=== PATIENT | male | born 1970 | race Caucasian/White ===

== ENCOUNTER 2023-06-14 08:10 | Outpatient (OUT) | payer MEDICAID, SELFPAY ==
--- NOTE | 2023-06-14 09:47 | P.CN_ITS ---
Consult Note: HPI Data of Consult Patient: known to practice within the last 3 years Consult date: 06/14/23 Requesting Physician: Diallo Beauchamp MD Primary Care Provider: Caden Mendez MD Consult Narrative Reason for consult: low back pain Narrative: 52yom who presents for assessment. notes increasing axial low back pain, worsened with standing and ambulation. engaged in >6 weeks of provider directed home exercises, with minimal benefit. underwent lumbar RFA in early 2020, which provided significant relief of >50% until recently. denies trauma. utilizes gabapentin. denies adverse med side effects. cc:: CC: Diallo Beauchamp MD Review of Systems ROS Status of ROS 10 or more systems reviewed and unremarkable except as noted in history and below Meds Home Medications and Allergies Home Medications Medication Instructions Recorded Confirmed Type carvedilol 25 mg tablet 25 mg PO BID 06/14/23 06/14/23 History citalopram 20 mg tablet 20 mg PO DAILY 06/14/23 06/14/23 History clonazepam 0.5 mg tablet 0.5 mg PO DAILY 06/14/23 06/14/23 History doxazosin 8 mg tablet 8 mg PO DAILY 06/14/23 06/14/23 History doxepin 10 mg capsule 10 mg PO DAILY PRN itching 06/14/23 06/14/23 History furosemide 20 mg tablet 20 mg PO DAILY 06/14/23 06/14/23 History gabapentin 600 mg tablet 600 mg PO BID 06/14/23 06/14/23 History glycopyrrolate 1 mg tablet 1 mg PO BID 06/14/23 06/14/23 History hydroxyzine pamoate 25 mg capsule 25 mg PO QPM 06/14/23 06/14/23 History meclizine 25 mg tablet 25 mg PO DAILY 06/14/23 06/14/23 History pantoprazole 40 mg tablet,delayed 40 mg PO DAILY 06/14/23 06/14/23 History release sildenafil 25 mg tablet 25 mg PO DAILY 06/14/23 06/14/23 History simvastatin 20 mg tablet 20 mg PO DAILY 06/14/23 06/14/23 History sumatriptan succinate 100 mg tablet 100 mg PO Q2H PRN migraine headache 06/14/23 06/14/23 History testosterone cypionate 100 mg/mL 100 mg subcut .EVERY 2 WEEKS 06/14/23 06/14/23 History intramuscular oil tizanidine 4 mg capsule 4 mg PO .EVERY NIGHT 06/14/23 06/14/23 History Allergies Allergy/AdvReac Type Severity Reaction Status Date / Time No Known Drug Allergies Allergy Verified 06/14/23 09:03 Exam Narrative Exam Narrative: Psych-alert and oriented x 3. Attentive and appropriate, constitutionally normal, displays normal mood and affect per situation.? There are no obvious deficits in memory, reasoning, or intellect.? Skin-no obvious rashes, bruising, erythema noted to the patient's area of pain. Extremities- extremities are warm with minimal edema and palpable pulses. Lumbar-no significant tenderness to palpation noted in the lumbar spine and paraspinal musculature.? Pain is elicited with extension, and lateral rotation of the lumbar spine. Range of motion is slightly diminished with these motions due to pain. Facet loading maneuvers are positive bilaterally and do appear to be concordant with the patient's normal complaints of pain.? Coordination remains intact.? Gait remains non-antalgic. Assessment and Plan Assessment and Plan (1) Lumbar spondylosis: Plan 52yom who presents for assessment. failed conservative measures, as noted. imaging significant for facet arthropathy in lower lumbar spine. given previous significant relief with lumbar RFA and current symptoms, will proceed with diagnostic bilateral l4-5, l5-s1 medial branch blocks under fluoroscopic guidance with intention of proceeding to radiofrequency ablation. he is in ag reement. medications reviewed, no changes. will have him update lumbar XR as well. follow up after procedure.
== END 2023-06-14 08:11 | disposition home or self-care (01) ==
LOC: PM 08:12
PROVIDERS: PCP Family Medicine; Visit Provider Anesthesiology
DX: M47.816 Spondylosis without myelopathy or radiculopathy, lumbar region (principal); I10 Essential (primary) hypertension; G47.10 Hypersomnia, unspecified; E78.5 Hyperlipidemia, unspecified; R73.09 Other abnormal glucose; Z12.5 Encounter for screening for malignant neoplasm of prostate; Z12.12 Encounter for screening for malignant neoplasm of rectum; M54.16 Radiculopathy, lumbar region
CPT/HCPCS: 36415; 72114; 80053; 80061; 83036; 84436; 84443; 84481; 85025; G0103; G0463

== ENCOUNTER 2023-06-14 09:06 | Outpatient (OUT) | payer MEDICAID, SELFPAY ==
[2023-06-14 09:53] LABS: Basophils Absolute Auto 0.1 10^3/uL (0.0-0.1); Eosinophils Absolute Auto 0.5 10^3/uL (0.0-0.7); Eosinophils Percent Auto 5.9 % (0.9-7.0); Hematocrit 49.1 % (42.0-54.0); Hemoglobin 15.4 g/dL (14.0-18.0); Immature Granulocytes Abs Auto 0.08 10^3/uL (0.00-0.03); Lymphocytes Percent Auto 13.5 % (20.5-60.0); Mean Corpuscular HGB Conc 31.4 g/dL (29.9-35.2); Mean Corpuscular Hemoglobin 27.5 pg (25.9-34.0); Mean Corpuscular Volume 87.7 fL (80.0-94.0); Mean Platelet Volume 10.4 fL (9.5-13.5); Monocytes Absolute Auto 0.6 10^3/uL (0.3-0.8); Monocytes Percent Auto 7.9 % (1.7-12.0); Neutrophils Absolute Auto 5.4 10^3/uL (1.4-6.5); Neutrophils Percent Auto 70.7 % (43.0-75.0); Platelet Count 147 10^3/uL (150-450); Red Cell Distribution Width 15.6 % (11.0-15.0); White Blood Count 7.7 10^3/uL (4.0-11.0)
[2023-06-14 10:57] LABS: Anion Gap 10.7; Aspartate Amino Transferase 19 U/L (15-37); Bilirubin Total 0.6 mg/dL (0.2-1.0); Carbon Dioxide 30.1 mmol/L (21.0-32.0); Chloride 102 mmol/L (98-107); Estimated GFR (African America >60 (>=60); Estimated GFR (Non-African Ame >60 (>=60); Glucose 100 mg/dL (74-106); Potassium 3.8 mmol/L (3.5-5.1); Sodium 139 mmol/L (136-145)
[2023-06-14 10:58] LABS: Alanine Aminotransferase 31 U/L (16-63); Albumin Globulin Ratio 0.9; Albumin Level 3.6 g/dL (3.4-5.0); Alkaline Phosphatase 89 U/L (46-116); Chol HDL Ratio 4.5; Cholesterol 152 mg/dL (<=200); Free T3 2.84 pg/mL (2.18-3.98); Globulin 3.8 g/dL; HDL Cholesterol 34 mg/dL (40-60); Prostate Specific Antigen Scrn 2.95 ng/mL (<=4.00); Thyroid Stimulating Hormone 1.466 uIU/mL (0.358-3.740); Total Protein 7.4 g/dL (6.4-8.2); Triglycerides 107 mg/dL (<=150); VLDL CHOLESTEROL 21.4 mg/dL
[2023-06-14 11:36] LABS: Estimated Average Glucose 128 mg/dL; Glycohemoglobin A1C 6.1 % (4.5-6.2)
== END 2023-06-14 09:07 | disposition home or self-care (01) ==
PROVIDERS: PCP Family Medicine; Visit Provider Family Medicine
DX: I10 Essential (primary) hypertension (principal); M54.16 Radiculopathy, lumbar region; G47.10 Hypersomnia, unspecified; E78.5 Hyperlipidemia, unspecified; R73.09 Other abnormal glucose; Z12.5 Encounter for screening for malignant neoplasm of prostate; Z12.12 Encounter for screening for malignant neoplasm of rectum
CPT/HCPCS: 36415; 80053; 80061; 83036; 84436; 84443; 84481; 85025; G0103

== ENCOUNTER 2023-06-14 09:09 | Outpatient (OUT) | payer MEDICAID, SELFPAY ==
--- NOTE | 2023-06-14 09:28 | XR_ITS ---
The [address] [address] Patient Name: MATTY WADE MRN: [id number] date: 1970 Sex: M Assigned Patient Location: [facility] Current Patient Location: [facility] Accession/Order Number: [id number] Exam Date: 06/14/2023 09:40 Report Date: 06/14/2023 13:54 At the request of: TAMIA PINEDA Procedure: XR lumbar spine 6V w bending EXAMINATION: XR lumbar spine 6V w bending HISTORY: Lumbar Spondylosis COMPARISON: No relevant comparison available. FINDINGS: BONES: Normal alignment on the neutral projection with no acute fracture or spondylolisthesis. Mild anterior wedging of the L1 vertebral body likely chronic with endplate sclerosis. Degenerative spondylosis and facet osteoarthropathy DISC SPACES: Normal. No significant disc height narrowing, subluxation, or endplate abnormality. PARASPINOUS: Negative. No paraspinous abnormality is seen. OTHER: No transient spondylolisthesis with flexion or extension XR/XR lumbar spine 6V w bending IMPRESSION: Degenerative changes with no dynamic instability Electronically authenticated by: ALVINA CAICEDO Date: 06/14/2023 13:54
== END 2023-06-14 09:10 | disposition home or self-care (01) ==
PROVIDERS: PCP Family Medicine; Visit Provider Anesthesiology
DX: M47.816 Spondylosis without myelopathy or radiculopathy, lumbar region (principal)
CPT/HCPCS: 36415; 72114; 80053; 80061; 83036; 84436; 84443; 84481; 85025; G0103

== ENCOUNTER 2023-07-12 07:25 | Day surgery (SDC) | payer MEDICAID, SELFPAY ==
[2023-07-12 07:41] VITALS: BP 159/97; PULSE 76; RESP 14; TEMP 36.7; O2SAT 94
[2023-07-12] MEDS: LIDOCAINE HCL 2% PF 100 MG/5 ML VIAL INJ (08:24)
[2023-07-12] MEDS: BUPIVACAINE HCL 0.5% PF 50 MG/10 ML VIAL 8 ML INJ (08:24)
[2023-07-12] MEDS: TRIAMCINOLONE ACETONIDE 40 MG/ML VIAL INJ (08:24)
--- NOTE | 2023-07-12 08:26 | W.PM.PROCNOT ---
Date of procedure: 07/12/23 Pre-op diagnosis: Lumbar spondylosis Post-op diagnosis: same as pre-op Procedure: Procedure: Bilateral L4-5, L5-S1 medial branch block Medications: Bupivacaine 0.25% 4cc, kenalog 40mg The patient was seen and examined in the preoperative holding area.? An informed consent was obtained and placed on the chart.? The patient was brought to the medical procedure unit and placed in the prone position.? A timeout was completed verifying correct patient, procedure site, positioning, plan, and special equipment.? Using aseptic technique, the needle was placed at left L4. Under direct fluoroscopic visualization a Quincke-tipped spinal needle was advanced to the junction of the superior articulating process with the transverse process at the designated medial branch segment.? Preceded by negative aspiration, the above-mentioned injectate was placed in 1 mL aliquots.? The procedure was repeated at left L5, S1.? The needle was removed and insertion site was covered. The same procedure, at the same levels, was completed on the right side. The patient was taken to the postprocedural recovery area and monitored for an appropriate length of time before found suitable for discharge in the company of a responsible adult. Anesthesia: Local Surgeon: Diallo Beauchamp Pathology: none sent Condition: stable Disposition: no change
[2023-07-12 09:55] VITALS: BP 142/63; BP 182/71; PULSE 18; PULSE 69; RESP 18; RESP 75; O2SAT 95; O2SAT 97
== END 2023-07-12 08:33 | disposition home or self-care (01) ==
PROVIDERS: PCP Family Medicine; Visit Provider Anesthesiology
DX: M47.816 Spondylosis without myelopathy or radiculopathy, lumbar region (principal)
CPT/HCPCS: 64493; 64494

== ENCOUNTER 2023-07-22 10:45 | Outpatient (OUT) | payer MEDICAID, SELFPAY ==
--- NOTE | 2023-07-22 11:04 | P.CN_ITS ---
Consult Note: HPI Data of Consult Patient: known to practice within the last 3 years Consult date: 06/14/23 Requesting Physician: Nicole Acevedo NP Primary Care Provider: Caden Mendez MD Consult Narrative Reason for consult: low back pain Narrative: 52yom who presents for assessment. notes increasing axial low back pain, worsened with standing and ambulation. engaged in >6 weeks of provider directed home exercises, with minimal benefit. underwent lumbar RFA in early 2020, which provided significant relief of >50% until recently. denies trauma. utilizes gabapentin. denies adverse med side effects. Pain today /10 in low back and neck. Patient concerned as he has fallen with his narcelepsy and hit his head, he feels there is a lose screw in his neck. cc:: CC: Nicole Acevedo NP Review of Systems ROS Status of ROS 10 or more systems reviewed and unremarkable except as noted in history and below Musculoskeletal Reports: back pain and neck pain PFSH [facility] Medical History (Updated 07/22/23 @ 11:06 by Nicole Acevedo NP) Anxiety ?F41.9 - Anxiety disorder, unspecified (ICD-10) Hypertension ?I10 - Essential (primary) hypertension (ICD-10) Low back pain ?M54.50 - Low back pain, unspecified (ICD-10) Narcolepsy ?G47.419 - 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) Obesity ?E66.9 - Obesity, unspecified (ICD-10) Sleep apnea ?G47.30 - Sleep apnea, unspecified (ICD-10) TMJ (dislocation of temporomandibular joint) ?S03.00XA - Dislocation of jaw, unspecified side, initial encounter (ICD-10) Upper back pain ?M54.9 - Dorsalgia, unspecified (ICD-10) Surgical History H/O inguinal hernia repair ?Z98.890 - Other specified postprocedural states (ICD-10) ?Z87.19 - Personal history of other diseases of the digestive system (ICD-10) H/O repair of rotator cuff ?Z98.890 - Other specified postprocedural states (ICD-10) History of fusion of cervical spine ?Z98.1 - Arthrodesis status (ICD-10) History of uvulopalatopharyngoplasty ?Z98.890 - Other specified postprocedural states (ICD-10) Meds Home Medications and Allergies Home Medications Medication Instructions Recorded Confirmed Type carvedilol 25 mg tablet 25 mg PO BID 06/14/23 07/12/23 History citalopram 20 mg tablet 20 mg PO DAILY 06/14/23 07/12/23 History clonazepam 0.5 mg tablet 0.5 mg PO DAILY 06/14/23 07/12/23 History doxazosin 8 mg tablet 8 mg PO DAILY 06/14/23 07/12/23 History doxepin 10 mg capsule 10 mg PO DAILY PRN itching 06/14/23 07/12/23 History furosemide 20 mg tablet 20 mg PO DAILY 06/14/23 07/12/23 History gabapentin 600 mg tablet 600 mg PO BID 06/14/23 07/12/23 History glycopyrrolate 1 mg tablet 1 mg PO BID 06/14/23 07/12/23 History hydroxyzine pamoate 25 mg capsule 25 mg PO QPM 06/14/23 07/12/23 History meclizine 25 mg tablet 25 mg PO DAILY 06/14/23 07/12/23 History pantoprazole 40 mg tablet,delayed 40 mg PO DAILY 06/14/23 07/12/23 History release sildenafil 25 mg tablet 25 mg PO DAILY 06/14/23 07/12/23 History simvastatin 20 mg tablet 20 mg PO DAILY 06/14/23 07/12/23 History sumatriptan succinate 100 mg tablet 100 mg PO Q2H PRN migraine headache 06/14/23 07/12/23 History testosterone cypionate 100 mg/mL 100 mg subcut .EVERY 2 WEEKS 06/14/23 07/12/23 History intramuscular oil tizanidine 4 mg capsule 4 mg PO .EVERY NIGHT 06/14/23 07/12/23 History Allergies Allergy/AdvReac Type Severity Reaction Status Date / Time No Known Drug Allergies Allergy Verified 07/12/23 07:37 Exam Narrative Exam Narrative: Psych-alert and oriented x 3. Attentive and appropriate, constitutionally normal, displays normal mood and affect per situation.? There are no obvious deficits in memory, reasoning, or intellect.? Skin-no obvious rashes, bruising, erythema noted to the patient's area of pain. Extremities- extremities are warm with minimal edema and palpable pulses. Lumbar-no significant tenderness to palpation noted in the lumbar spine and paraspinal musculature.? Pain is elicited with extension, and lateral rotation of the lumbar spine. Range of motion is slightly diminished with these motions due to pain. Facet loading maneuvers are positive bilaterally and do appear to be concordant with the patient's normal complaints of pain.? Coordination remains intact.? Gait remains non-antalgic. Neck & C-Spine Cervical spine: cervical ROM abnormal and pain with cervical ROM Back & Pelvis Lumbar spine/lower back: ROM limited, pain with ROM and straight leg raise negative bilaterally Assessment and Plan Assessment and Plan (1) Lumbar spondylosis: (2) Neck pain: Plan cervical xray with extension proceed with bilateral L4-5 L5-S1 mbb #2 under fluoroscopy working towards thermal ablation continue HEP continue current medication regimen f/u 1 week after ablation
== END 2023-07-22 10:46 | disposition home or self-care (01) ==
LOC: PM 10:45
PROVIDERS: PCP Family Medicine; Visit Provider Nurse Practitioner
DX: M54.2 Cervicalgia (principal); M47.812 Spondylosis without myelopathy or radiculopathy, cervical region; M47.816 Spondylosis without myelopathy or radiculopathy, lumbar region
CPT/HCPCS: 72052; G0463

== ENCOUNTER 2023-07-22 11:25 | Outpatient (OUT) | payer MEDICAID, SELFPAY ==
--- NOTE | 2023-07-22 11:36 | XR_ITS ---
[address] [address] Patient Name: MATTY WADE MRN: [id number] date: 1970 Sex: M Assigned Patient Location: [facility] Current Patient Location: [facility] Accession/Order Number: [id number] Exam Date: 07/22/2023 11:41 Report Date: 07/22/2023 22:53 At the request of: FRANK ZIMMERMAN Procedure: XR cervical spine w flex/ext EXAM: XR cervical spine w flex/ext HISTORY: Neck Pain COMPARISON: CT cervical spine 12/06/2022 TECHNIQUE: 8 views cervical spine with flexion and extension FINDINGS: Vertebral body heights and alignment are preserved. Status post ACDF at C5-6 and C6-7 without evident hardware complication. Mild degenerative disc height loss at C4-5 and C7-T1. Dens and lateral masses are symmetrically aligned. The cervicothoracic junction is maintained. Lung apices are clear. Prevertebral soft tissues are within normal limits. No significant spondylolisthesis on dynamic imaging. Mild osseous neural foraminal narrowing of the lower cervical levels bilaterally. XR/XR cervical spine w flex/ext IMPRESSION: Postsurgical changes of the cervical spine. No significant spondylolisthesis on dynamic imaging. Mild degenerative changes at C4-5. Electronically authenticated by: SARANYA HERNANDEZ Date: 07/22/2023 22:53
== END 2023-07-22 11:26 | disposition home or self-care (01) ==
LOC: RAD 11:26
PROVIDERS: PCP Family Medicine; Visit Provider Nurse Practitioner
DX: M54.2 Cervicalgia (principal); M47.812 Spondylosis without myelopathy or radiculopathy, cervical region
CPT/HCPCS: 72052

== ENCOUNTER 2023-08-11 14:25 | Emergency (ER) | payer MEDICAID, SELFPAY ==
[2023-08-11 14:32] VITALS: BP 165/85; PULSE 83; RESP 18; TEMP 36.8; O2SAT 95; BMI 39.3
--- NOTE | 2023-08-11 14:45 | XR_ITS ---
The [address] [address] Patient Name: MATTY WADE MRN: [id number] date: 1970 Sex: M Assigned Patient Location: ER Current Patient Location: ER Accession/Order Number: [id number] Exam Date: 08/11/2023 15:00 Report Date: 08/11/2023 15:15 At the request of: SERA WAYNE Procedure: XR ankle RT min 3V EXAM: XR ankle RT min 3V HISTORY: fall COMPARISON: None. TECHNIQUE: 3 views FINDINGS: IMPRESSION: Subcutaneous soft tissue edema overlies the lateral malleolus and to a lesser degree the medial malleolus. No acute fracture, dislocation, subluxation or osseous lesion. Chronic old posttraumatic ossification adjacent to the tips of the medial and lateral malleolus. Small osteophytes off the talocrural and talonavicular articulations. Joint spaces are otherwise maintained. No visualized joint effusion. Electronically authenticated by: ALVINA HUANG Date: 08/11/2023 15:15
--- NOTE | 2023-08-11 14:46 | ED_ITS ---
HPI - Extremity Injury (Lower) General Chief Complaint: Extremity Injury, Lower Stated Complaint: LOWER EXTREMITY INJURY RIGHT ANKLE Time Seen by Provider: 08/11/23 14:41 Source: patient Mode of arrival: Wheelchair History of Present Illness HPI Narrative: 52-year-old male presents for right ankle pain. This morning he fell because he has narcolepsy and he had an attack today. He didn't sustain any other injury. He didn't hit his head today. He is worried it might be broken again. The pain is moderate and worse when he walks. Related Data Home Medications Medication Instructions Recorded Confirmed carvedilol 25 mg tablet 25 mg PO BID 06/14/23 07/12/23 citalopram 20 mg tablet 20 mg PO DAILY 06/14/23 07/12/23 clonazepam 0.5 mg tablet 0.5 mg PO DAILY 06/14/23 07/12/23 doxazosin 8 mg tablet 8 mg PO DAILY 06/14/23 07/12/23 doxepin 10 mg capsule 10 mg PO DAILY PRN itching 06/14/23 07/12/23 furosemide 20 mg tablet 20 mg PO DAILY 06/14/23 07/12/23 gabapentin 600 mg tablet 600 mg PO BID 06/14/23 07/12/23 glycopyrrolate 1 mg tablet 1 mg PO BID 06/14/23 07/12/23 hydroxyzine pamoate 25 mg capsule 25 mg PO QPM 06/14/23 07/12/23 meclizine 25 mg tablet 25 mg PO DAILY 06/14/23 07/12/23 pantoprazole 40 mg tablet,delayed 40 mg PO DAILY 06/14/23 07/12/23 release sildenafil 25 mg tablet 25 mg PO DAILY 06/14/23 07/12/23 simvastatin 20 mg tablet 20 mg PO DAILY 06/14/23 07/12/23 sumatriptan succinate 100 mg tablet 100 mg PO Q2H PRN migraine headache 06/14/23 07/12/23 testosterone cypionate 100 mg/mL 100 mg subcut .EVERY 2 WEEKS 06/14/23 07/12/23 intramuscular oil tizanidine 4 mg capsule 4 mg PO .EVERY NIGHT 06/14/23 07/12/23 Previous Rx's Medication Instructions Recorded etodolac 400 mg tablet (Lodine) 400 mg PO Q12H PRN pain #30 tabs 08/11/23 Allergies Allergy/AdvReac Type Severity Reaction Status Date / Time No Known Drug Allergies Allergy Verified 07/12/23 07:37 Review of Systems ROS Narrative A ten point review of systems is negative except as noted above. [facility] Medical History (Updated 08/11/23 @ 15:37 by Andrzej Mandujano MD) Anxiety ?F41.9 - Anxiety disorder, unspecified (ICD-10) Hypertension ?I10 - Essential (primary) hypertension (ICD-10) Low back pain ?M54.50 - Low back pain, unspecified (ICD-10) Narcolepsy ?G47.419 - 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) Obesity ?E66.9 - Obesity, unspecified (ICD-10) Sleep apnea ?G47.30 - Sleep apnea, unspecified (ICD-10) TMJ (dislocation of temporomandibular joint) ?S03.00XA - Dislocation of jaw, unspecified side, initial encounter (ICD-10) Upper back pain ?M54.9 - Dorsalgia, unspecified (ICD-10) Surgical History H/O inguinal hernia repair ?Z98.890 - Other specified postprocedural states (ICD-10) ?Z87.19 - Personal history of other diseases of the digestive system (ICD-10) H/O repair of rotator cuff ?Z98.890 - Other specified postprocedural states (ICD-10) History of fusion of cervical spine ?Z98.1 - Arthrodesis status (ICD-10) History of uvulopalatopharyngoplasty ?Z98.890 - Other specified postprocedural states (ICD-10) Exam Narrative Exam Narrative: Nurses note and vital signs reviewed and patient is not hypoxic. General: The patient appears well and in no apparent distress. Patient is resting comfortably on cart. Skin: Warm, dry, no pallor noted. There is no rash noted. Head: Normocephalic, atraumatic Eye: Normal conjunctiva, no drainage Ears, Nose, Mouth, and Throat: oral mucosa is moist. Nares patent. Cardiovascular: Regular Rate and Rhythm Respiratory: Patient is in no distress, no accessory muscle use, lungs are clear to auscultation, no wheezing, rales or rhonchi Back: non-tender, no CVA tenderness bilaterally to percussion. GI: Normal bowel sounds, no tenderness to palpation, no masses appreciated. No rebound, guarding, or rigidity noted. Musculoskeletal: the right ankle has some mild swelling. Skin intact. The foot and knee are nontender. Neurological: A&O, normal speech Psychiatric: Cooperative Constitutional Vital Signs, click to edit/add: Last Vital Signs Temp 98.3 F 08/11/23 14:32 Pulse 83 08/11/23 14:32 Resp 18 08/11/23 14:32 BP 165/85 H 08/11/23 14:32 Pulse Ox 95 08/11/23 14:32 O2 Del Method Room Air 08/11/23 14:32 Course Vital Signs Vital signs: Vital Signs Temperature 98.3 F 08/11/23 14:32 Pulse Rate 83 08/11/23 14:32 Respiratory Rate 18 08/11/23 14:32 Blood Pressure 165/85 H 08/11/23 14:32 Pulse Oximetry 95 08/11/23 14:32 Oxygen Delivery Method Room Air 08/11/23 14:32 Temperature 98.3 F 08/11/23 14:32 Pulse Rate 83 08/11/23 14:32 Respiratory Rate 18 08/11/23 14:32 Blood Pressure 165/85 H 08/11/23 14:32 Pulse Oximetry 95 08/11/23 14:32 Oxygen Delivery Method Room Air 08/11/23 14:32 MDM - Extremity Injury (Lower) MDM Narrative Medical decision making narrative: X-ray findings are discussed with the patient. Rambo wrap and air splint applied, application checked by me and found be appropriate and he is neurovascularly intact. He received a shot of Toradol about two hours before coming into the emergency department. He sees pain management and has been off narcotics for about four years so we will avoid narcotics. Treatment diagnosis and follow-up were discussed with the patient and his . Differential Diagnosis Differential diagnosis: Likely ankle sprain and strain (ankle fracture) Imaging Data right ankle x-ray: Radiologist's impression: Procedure: XR ankle RT min 3V EXAM: XR ankle RT min 3V HISTORY: fall COMPARISON: None. TECHNIQUE: 3 views FINDINGS: IMPRESSION: Subcutaneous soft tissue edema overlies the lateral malleolus and to a lesser degree the medial malleolus. No acute fracture, dislocation, subluxation or osseous lesion. Chronic old posttraumatic ossification adjacent to the tips of the medial and lateral malleolus. Small osteophytes off the talocrural and talonavicular articulations. Joint spaces are otherwise maintained. No visualized joint effusion. Electronically authenticated by: ALVINA HUANG Date: 08/11/2023 15:15 Discharge Plan Discharge Chief Complaint: Extremity Injury, Lower Clinical Impression: Right ankle sprain Patient Disposition: Home, Self-Care Time of Disposition Decision: 15:36 Condition: Good Mode of Transportation: Private Vehicle Prescriptions / Home Meds: New etodolac [Lodine] 400 mg tablet 400 mg PO Q12H PRN (Reason: pain) Qty: 30 0RF No Action gabapentin 600 mg tablet 600 mg PO BID carvedilol 25 mg tablet 25 mg PO BID Rx Instructions: must administer with a meal/food doxazosin 8 mg tablet 8 mg PO DAILY simvastatin 20 mg tablet 20 mg PO DAILY pantoprazole 40 mg tablet,delayed release (DR/EC) 40 mg PO DAILY glycopyrrolate 1 mg tablet 1 mg PO BID furosemide 20 mg tablet 20 mg PO DAILY sildenafil 25 mg tablet 25 mg PO DAILY Rx Instructions: administer 30 minutes to 4 hours before activity tizanidine 4 mg capsule 4 mg PO .EVERY NIGHT testosterone cypionate 100 mg/mL oil 100 mg subcut .EVERY 2 WEEKS citalopram 20 mg tablet 20 mg PO DAILY clonazepam 0.5 mg tablet 0.5 mg PO DAILY hydroxyzine pamoate 25 mg capsule 25 mg PO QPM doxepin 10 mg capsule 10 mg PO DAILY PRN (Reason: itching) meclizine 25 mg tablet 25 mg PO DAILY sumatriptan succinate 100 mg tablet 100 mg PO Q2H PRN (Reason: migraine headache) Rx Instructions: do not exceed 2 doses per 24 hrs Instructions: Ankle Sprain (ED) Stand Alone Forms: Portal Instructions Referrals: Caden Mendez MD [Primary Care Provider] - 1 week
[2023-08-11 15:29] VITALS: BP 158/80; PULSE 80; RESP 16; O2SAT 97
== END 2023-08-11 15:56 | disposition home or self-care (01) ==
PROVIDERS: Emergency Provider Emergency Medicine; PCP Family Medicine
DX: S93.401A Sprain of unspecified ligament of right ankle, initial encounter (principal); W19.XXXA Unspecified fall, initial encounter; G47.419 Narcolepsy without cataplexy; Z79.899 Other long term (current) drug therapy; F41.9 Anxiety disorder, unspecified; I10 Essential (primary) hypertension; E66.9 Obesity, unspecified; G47.30 Sleep apnea, unspecified; Z98.890 Other specified postprocedural states; Z98.1 Arthrodesis status; Z68.39 Body mass index [BMI] 39.0-39.9, adult
CPT/HCPCS: 73610; 99283

== ENCOUNTER 2023-08-30 11:08 | Day surgery (SDC) | payer MEDICAID, SELFPAY ==
[2023-08-30 11:32] VITALS: BP 135/83; PULSE 82; RESP 14; TEMP 36.5; O2SAT 95
[2023-08-30 12:01] VITALS: BP 115/57; BP 120/58; PULSE 80; PULSE 87; RESP 18; O2SAT 92; O2SAT 94
[2023-08-30] MEDS: BUPIVACAINE HCL 0.5% PF 50 MG/10 ML VIAL 8 ML INJ (12:05)
[2023-08-30] MEDS: LIDOCAINE HCL 2% PF 100 MG/5 ML VIAL 2 ML INJ (12:05)
--- NOTE | 2023-08-30 12:05 | W.PM.PROCNOT ---
Date of procedure: 08/30/23 Pre-op diagnosis: Lumbar spondylosis Post-op diagnosis: same as pre-op Procedure: Procedure: Bilateral L4-5, L5-S1 medial branch block Medications: Bupivacaine 0.25% 6cc The patient was seen and examined in the preoperative holding area.? An informed consent was obtained and placed on the chart.? The patient was brought to the medical procedure unit and placed in the prone position.? A timeout was completed verifying correct patient, procedure site, positioning, plan, and special equipment.? Using aseptic technique, the needle was placed at left L4. Under direct fluoroscopic visualization a Quincke-tipped spinal needle was advanced to the junction of the superior articulating process with the transverse process at the designated medial branch segment.? Preceded by negative aspiration, the above-mentioned injectate was placed in 1 mL aliquots.? The procedure was repeated at left L5, S1.? The needle was removed and insertion site was covered. The same procedure, at the same levels, was completed on the right side. The patient was taken to the postprocedural recovery area and monitored for an appropriate length of time before found suitable for discharge in the company of a responsible adult. Anesthesia: Local Surgeon: Diallo Beauchamp Pathology: none sent Condition: stable Disposition: no change
== END 2023-08-30 12:10 | disposition home or self-care (01) ==
LOC: SURGOUT 11:08
PROVIDERS: PCP Family Medicine; Visit Provider Anesthesiology
DX: M47.816 Spondylosis without myelopathy or radiculopathy, lumbar region (principal)
CPT/HCPCS: 64493; 64494

== ENCOUNTER 2023-09-04 07:01 | Emergency (ER) | payer MEDICAID, SELFPAY ==
[2023-09-04 07:13] VITALS: BP 140/78; PULSE 76; RESP 20; TEMP 36.6; O2SAT 96; BMI 40.0
--- OUTSIDE RECORDS SUMMARY | 2023-09-04 07:14 | XMS_ITS | CCD ---
Author Name Unknown Address [address] [place] [address] Organization [facility] Care Team Providers Care Back Panel Padder Name Role Phone UNKNOWN, PROVIDER Admitting Unavailable UNKNOWN, PROVIDER Attending Unavailable VENUS MENDEZ Referring Unavailable VENUS MENDEZ Primary Care Unavailable ME Procedure Practitioner Unavailab le UNKNOWN, PROVIDER Surgeon Unavailable ME Procedure Practitioner Unavailab le SANDRA BILL Surgeon Unavailable UNKNOWN, PROVIDER Admitting Unavailable UNKNOWN, PROVIDER Attending Unavailable VENUS MENDEZ Referring Unavailable VENUS MENDEZ Primary Care Unavailable ME Procedure Practitioner Unavailab le UNKNOWN, PROVIDER Surgeon Unavailable Venus Mendez Primary Care Physician [phone] MIL ., DR DONOVAN Admitting Unavailable HOY ., DR DONOVAN Attending Unavailable HOY ., DR DONOVAN Primary Care Unavailable HOY ., DR DONOVAN Consulting Unavailable HOY ., DR DONOVAN Admitting Unavailable HOY ., DR DONOVAN Attending Unavailable HOY ., DR DONOVAN Primary Care Unavailable HOY ., DR DONOVAN Consulting Unavailable HOY ., DR DONOVAN Admitting Unavailable HOY ., DR DONOVAN Attending Unavailable HOY ., DR DONOVAN Primary Care Unavailable HOY ., DR DONOVAN Consulting Unavailable HOY ., DR DONOVAN Primary Care Unavailable AGA, DR JEWELL Bloom Admitting Unavailabl e AGA, DR JEWELL Bloom Attending Unavailabl e EDDIEECK, DR JEWELL Bloom Consulting Unavailabl e WEST, DR ALVINA Martinez Consulting Unavailable HOY ., DR DONOVAN Primary Care Unavailable MARCUS .PADMINI Admitting Unavailable MARCUS .PADMINI Attending Unavailable MORENA ., DR ROBERTS Consulting Unavailable MARCUS ., PADMINI Consulting Unavailable ANGEL JORDAN Consulting Unavailable MICHAEL CASANOVA Consulting Unavailable HOY ., DR DONOVAN Primary Care Unavailable HOY ., DR DONOVAN Admitting Unavailable HOY ., DR DONOVAN Attending Unavailable HOY ., DR DONOVAN Consulting Unavailable WEST, DR ALVINA Martinez Consulting Unavailable MORENA .DR ROBERTS Consulting Unavailable MARNIE RICHEY Consulting Unavailable MNAUEL HOUGH Consulting Unavailable MAYRA BERNAL Consulting Unavailable Christiano Geiger Attending Unavailable Chrsitiano Geiger Admitting Unavailable Venus Mendez Primary Care Unavailable Quynh DELGADO, Diallo Berkowitz Attending Unavailable Quynh DELGADO, Diallo Berkowitz Attending Unavailable Quynh DELGADO, Diallo Berkowitz Attending Unavailable Allergies Allergy Classification Reported Allergen(s) Allergy Type Date of Onset Reaction(s) Facility (1 source) Aspartame Drug Allergy 08-17-20 [facility] (1 source) avoid; Translations: [Unknown] Propensity to adverse reactions (disorder) 08-17-20 [facility] (1 source) vitamin B12; Translations: [cyanocobalamin] Drug Allergy Unknown (qualifier value) [facility] (1 source) Acetaminophen / HYDROcodone Drug Allergy [facility] (1 source) Corticosteroids Drug allergy (disorder) [facility] (1 source) fentaNYL Drug Allergy [facility] (1 source) Misc-Food; Translations: [Misc-Food] Food allergy (disorder) [facility] (1 source) Corticosteroids Drug allergy (disorder) 05-14-20 [facility] Repository Medications Current Medications Medication Drug Class(es) Dates Sig (Normalized) Sig (Original) Biotin (1 source) Start: 02-26-2022 BIOTIN BIOTIN Start Date: 02/26/22 Status: Ordered carvedilol 25 mg oral tablet (1 source) alpha-Adrenergic Jorge L, beta-Adrenergic Jorge L Start: 02-26-2022 carvedilol 25 mg Tab Refills(s) 0 Start Date: 02/26/22 Status: Ordered clonazePAM 0.5 mg oral tablet (1 source) Benzodiazepine Start: 02-26-2022 ClonazePAM 0.5 mg Tab Refills(s) 0 Start Date: 02/26/22 Status: Ordered doxazosin 8 mg oral tablet (1 source) alpha-Adrenergic Jorge L Start: 02-26-2022 doxazosin 8 mg oral tablet Refills(s) 0 Start Date: 02/26/22 Status: Ordered doxepin hydrochloride 10 mg oral capsule (2 sources) Tricyclic Antidepressant Start: 02-26-2022 doxepin 10 mg Cap Refills(s) 0 Start Date: 02/26/22 Status: Ordered gabapentin 600 mg oral tablet (1 source) Anti-epileptic Agent Start: 02-26-2022 gabapentin 600 mg Tab Refills(s) 0 Start Date: 02/26/22 Status: Ordered glycopyrrolate 1 mg oral tablet (1 source) Start: 02-26-2022 glycopyrrolate 1 mg oral tablet Refills(s) 0 Start Date: 02/26/22 Status: Ordered modafinil 200 mg oral tablet (1 source) Sympathomimetic-lik e Agent Start: 02-26-2022 modafinil 200 mg Tab Refills(s) 0 Start Date: 02/26/22 Status: Ordered pantoprazole 40 mg delayed release oral tablet (1 source) Proton Pump Inhibitor Start: 02-26-[address] Tab Refills(s) 0 Start Date: 02/26/22 Status: Ordered simvastatin 20 mg oral tablet (1 source) HMG-CoA Reductase Inhibitor Start: 02-26-2022 simvastatin 20 mg Tab Refills(s) 0 Start Date: 02/26/22 Status: Ordered Problems Active Problems Problem Classification Problem Date Documented Date Episodic/Chronic Anxiety disorders (1 source) Anxiety disorder, unspecified; Translations: [ANXIETY DISORDER UNSPECIFIED] Onset: 3 Chronic Blindness and vision defects (1 source) Unspecified visual loss; Translations: [UNSPECIFIED VISUAL LOSS] Onset: 2 Chronic Diabetes mellitus without complication (1 source) Type 2 diabetes mellitus without complications; Translations: [TYPE 2 DM WITHOUT COMPLICATIONS] Onset: 3 Chronic Disorders of lipid metabolism (1 source) Pure hypercholesterolemia, unspecified; Translations: [PURE HYPERCHOLESTEROLEMIA UNSPEC] Onset: 3 Chronic E Codes: Fall (1 source) Unspecified fall, initial encounter; Translations: [UNSPECIFIED FALL INITIAL ENCOUNTER] Onset: 3 Episodic Esophageal disorders (1 source) Gastro-esophageal reflux disease without esophagitis; Translations: [GERD WITHOUT ESOPHAGITIS] Onset: 3 Chronic Essential hypertension (1 source) Essential (primary) hypertension; Translations: [ESSENTIAL PRIMARY HYPERTENSION] Onset: 3 Chronic Hyperplasia of prostate (1 source) Benign prostatic hypertrophy without outflow obstruction; Translations: [Benign prostatic hyperplasia without lower urinary tract symptoms] Onset: 2 Chronic Mood disorders (1 source) Major depressive disorder, single episode, unspecified; Translations: [MARITZA DEPRESS D/O SINGLE EPIS UNS] Onset: 2 Chronic Mood disorders (1 source) Mood disorders; Translations: [DEPRESSION UNSPECIFIED] Onset: 3 Osteoarthritis (1 source) Unspecified osteoarthritis, unspecified site; Translations: [UNSPECIFIED OSTEOARTHRITIS UNS SITE] Onset: 3 Chronic Other aftercare (1 source) 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; 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] Onset: 3 Episodic Other aftercare (1 source) Other assisted (current) drug therapy; Translations: [OTH ADJUNCT TEACHER CURRENT DRUG THERAPY] Onset: 3 Episodic Other connective tissue disease (3 sources) Pain in right forearm; Translations: [PAIN IN RIGHT FOREARM] Onset: 3 Episodic Other connective tissue disease (1 source) Arthrodesis status; Translations: [ARTHRODESIS STATUS] Onset: 3 Episodic Other connective tissue disease (1 source) Other muscle spasm; Translations: [Other muscle spasm] Onset: 3 Episodic Other diseases of veins and lymphatics (1 source) Varicocele; Translations: [Scrotal varices] Onset: 2 Episodic Other ear and sense organ disorders (1 source) Unspecified hearing loss, unspecified ear; Translations: [UNS HEARING LOSS UNSPECIFIED EAR] Onset: 3 Chronic Other endocrine disorders (4 sources) Testicular hypofunction; Translations: [TESTICULAR HYPOFUNCTION] Onset: 2 Chronic Other inflammatory condition of skin (1 source) Psoriasis, unspecified; Translations: [PSORIASIS UNSPECIFIED] Onset: 2 Chronic Other injuries and conditions due to external causes (1 source) Unspecified injury of head, initial encounter; Translations: [UNSPECIFIED INJURY HEAD INITIAL ENC] Onset: 3 Episodic Other male genital disorders (1 source) Hydrocele of testis; Translations: [Hydrocele, unspecified] Onset: 2 Episodic Other nervous system disorders (1 source) Narcolepsy without cataplexy; Translations: [NARCOLEPSY WITHOUT CATAPLEXY] Onset: 3 Chronic Other nervous system disorders (1 source) Other chronic pain; Translations: [OTHER CHRONIC PAIN] Onset: 3 Chronic Other nervous system disorders (1 source) Polyneuropathy, unspecified; Translations: [POLYNEUROPATHY UNSPECIFIED] Onset: 2 Chronic Other screening for suspected conditions (not mental disorders or infectious disease) (6 sources) Encounter for screening for malignant neoplasm of prostate; Translations: [Elevated prostate specific antigen [PSA]] Onset: 2 Episodic Residual codes; unclassified (1 source) Sleep apnea, unspecified; Translations: [SLEEP APNEA UNSPECIFIED] Onset: 3 Chronic Superficial injury; contusion (2 sources) Contusion of right forearm, initial encounter; Translations: [Contusion of other part of head, initial encounter] Onset: 3 Episodic Unclassified (1 source) CONTACT W/AND (SUSP) EXPOS COVID-19; Translations: [CONTACT W/AND (SUSP) EXPOS COVID-19] Onset: 2 Past or Other Problems Problem Classification Problem Date Documented Da te Episodic/Chronic E Codes: Natural/environment (1 source) Exposure to other specified factors, initial encounter; Translations: [EXPOSURE OTHER SPEC FACTORS INITIAL] Onset: 04-27-2022 Episodic Immunizations and screening for infectious disease (1 source) Encounter for immunization; Translations: [ENCOUNTER FOR IMMUNIZATION] Onset: 04-27-2022 Episodic Inflammatory conditions of male genital organs (4 sources) Inflammatory disorders of scrotum; Translations: [INFLAMMATORY DISORDERS OF SCROTUM] Onset: 01-04-2022 Episodic Open wounds of extremities (4 sources) Puncture wound without foreign body, left foot, initial encounter; Translations: [PUNCT WOUND W/O FB LT FOOT INITIAL] Onset: 03-26-2022 Episodic Results Test Name Value Interpretation Reference Range Facility XR cervical spine 5V*on 02-12 XR cervical spine 5V* [facility] [place] [address] [place] [id number] XRay Report Signed Patient: Matty Garces MR#: [id number] [birth year] : 1970 Acct:[id number] Age/Sex: 52 / M ADM Date: 03/11/23 Loc: ICXD Room: Type: [facility] Attending Dr: Christiano Geiger MD Copies to: Christiano Geiger MD Ordering Provider: Christiano Geiger MD Date of Service: 03/11/23 XR/XR cervical spine 5V*: M62.838 5 views of thecervical spine HISTORY: Neck pain with right arm radiculopathy. COMPARISON: 05/14/2018 Limited assessment of the C7-T1 level with lateral view POSTOPERATIVE CHANGES: Stable C5-6 fusion. No hardware failure. BONY ALIGNMENT: Adequate FRACTURE: None DISC DEGENERATION: Similar mild degenerative changes. FACETS: Unremarkable FORAMEN: Similar C3-4 and C4-5 and bilateral bony neural foraminal narrowing. DENS: Intact CRANIOCERVICAL JUNCTION: Unremarkable SOFT TISSUES: Unremarkable XR/XR cervical spine 5V* IMPRESSION: Stable C5-6 fusion changes. Similar degenerative change. Limited assessment of C7-T1 level. Impression dictated by: Crow Contreras M.D.03/11/2023 3:48 PM Dictation Location: [place] [address] Transcribed By: [facility] 03/11/23 1548 Dictated By: Crow Contreras DO 03/11/23 1544 Signed By: 03/11/23 [address] [facility] [address] CSPINE WO CONon CT CSPINE WO CON EXAM: CT CSPINE WO CON 12/06/2022 5:22 AM EDT [facility]001 CLINICAL STATEMENT: Pain COMPARISON: No prior studies are available at the time of dictation. TECHNIQUE: Helically acquired images were obtained of the cervical spine without contrast. AEC is utilized. 2D reformatted images were reviewed FINDINGS: Multilevel degenerative changes are noted. Anterior corpectomy at C5-C6. There is no acute fracture or subluxation. There is normal anatomic alignment. There is no prevertebral soft tissue swelling. Luschka joint and facet joint hypertrophy is noted. The visualized portions of the lung apices are clear. The visualized portions of the skull base are intact. IMPRESSION: Multilevel degenerative changes without evidence of acute fracture or subluxation. Anterior corpectomy at C5-C6. Electronically authenticated by: ANGEL SAID Date: 2022-12-06 06:37 Normal [facility] CT FACIAL BONES WO CONon CT FACIAL BONES WO CON EXAM: CT FACIAL BONES WO CON 12/06/2022 5:22 AM EDT [facility]001 CLINICAL STATEMENT: Pain COMPARISON: No prior studies are available at the time of dictation. TECHNIQUE: Helically acquired images were obtained of the facial bones without intravenous contrast. AEC is utilized. 2-D reconstructed images are provided. FINDINGS: There is no significant soft tissue swelling. Mild bilateral maxillary sinus mucoperiosteal thickening. The facial bones are intact. The orbits are intact. There are no intraorbital masses identified. The osseous portions of the skull base are intact. IMPRESSION: No acute facial bone fracture. Mild bilateral maxillary sinus mucoperiosteal thickening Electronically authenticated by: ANGEL SAID Date: 2022-12-06 06:41 Normal [facility] CT HEAD WO CONon 12-06-2022 CT HEAD WO CON EXAM: CT HEAD WO CON 12/06/2022 5:22 AM EDT [facility]001 CLINICAL STATEMENT: Pain COMPARISON: No prior studies are available at the time of dictation. TECHNIQUE: Multiple axial images were obtained of the brain without intravenous contrast. AEC is utilized. 2-D reconstructed images are provided. FINDINGS: The ventricles and the cortical sulci have normal size contour and symmetry. There is no evidence for intracranial hemorrhage. There is no mass effect and or midline shift. No extra-axial collections. Limited evaluation of the orbits and the paranasal sinuses are normal. IMPRESSION: No acute intracranial abnormality. Electronically authenticated by: ANGEL SAID Date: 2022-12-06 06:39 Normal [facility] XR ELBOW RT MIN 3 VIEWSon XR ELBOW RT MIN 3 VIEWS Exam: Radiographs: XR ELBOW RT MIN 3 VIEWS Reason for exam: Elbow pain Comparison: None IMPRESSION: Right elbow degenerative changes. Olecranon spur. Remainder of the right elbow is unremarkable. Electronically authenticated by: MICHAEL CASANOVA Date: 2022-12-06 07:22 Normal [facility] XR FOREARM RT 2Von 3 XR FOREARM RT 2V Exam: Radiographs: XR FOREARM RT 2V Reason for exam: Forearm pain Comparison: None IMPRESSION: Mild degenerative changes in the right elbow and wrist. Right forearm is otherwise unremarkable. Electronically authenticated by: MICHAEL CASANOVA Date: 2022-12-06 08:07 Normal [facility] PSA, FREE AND TOTAL RATIOon 12-03-2022 % Free PSA 9.0 % Normal [facility] Comment on above: Result Comment: The table below lists the probability of prostate cancer for men with non-suspicious KIMBER results and total PSA between 4 and 10 ng/mL, by patient age (Heather et al, HEIDY 1998, 279:1542). % Free PSA 50-64 yr 65-75 yr 0.00-10.00% 56% 55% 10.01-15.00% 24% 35% 15.01-20.00% 17% 23% 20.01-25.00% 10% 20% >25.00% 5% 9% Please note: Heather et al did not make specific recommendations regarding the use of percent free PSA for any other population of men. Performed By: #### P SAFREE #### [facility] [address] [place] [address] [address] Shabnam Rae Prostate specific Ag [Mass/Vol] 5.9 ng/mL Critically high 0.0-4.0 [facility] Comment on above: Result Comment: Tanja ayala ECLIA methodology. . According to the [employer] [employer], Serum PSA should decrease and remain at undetectable levels after radical prostatectomy. The AUA defines biochemical recurrence as an initial PSA value 0.2 ng/mL or greater followed by a subsequent confirmatory PSA value 0.2 ng/mL or greater. Values obtained with different assay methods or kits cannot be used interchangeably. Results cannot be interpreted as absolute evidence of the presence or absence of malignant disease. Performed By: #### P SAFREE #### [facility] [address] [place] [address] [address] Shabnam Rae PSA, Free 0.53 ng/mL Normal N/A [facility] Comment on above: Result Comment: [place] ECLIA methodology. Performed By: #### P SAFREE #### [facility] [address] [place] [address] [address] Shabnam Rae INSULINon 12-02-2022 Insulin 20.2 uIU/mL Normal 2.6-24.9 [facility] Comment on above: Performed By: #### P SASC #### [facility] [address] [place] [address] Dr. Shabnam Rae TESTOSTERONE, TOTALon 2022 Testosterone [Mass/Vol] 256 ng/dL Critically low 264-916 [facility] Comment on above: Result Comment: Adul t male reference interval is based on a population of healthy nonobese males (BMI <30) between 19 and 39 years old. adia Ch.al. JCEM 2017,102;5251-1666. PMID: [id number]. Performed By: #### P SASC #### [facility] [address] [place] [address] Dr. Shabnam Rae CBC AUTO DIFFon 12-01-2022 BASO # 0.1 103/ul Normal 0.0-0.1 [facility] Comment on above: Performed By: #### P SASC #### [facility] [address] [place] [address] Dr. Shabnam Rae Basophils/100 WBC (Bld) 1.0 % Normal 0.2-2.0 [facility] Comment on above: Performed By: #### P SASC #### [facility] [address] [place] [address] Dr. Shabnam Rae EO # 0.1 103/ul Normal 0.0-0.7 [facility] Comment on above: Performed By: #### P SASC #### [facility] [address] [place] [address] Dr. Shabnam Rae Eosinophils/100 WBC (Bld) 1.8 % Normal 0.9-7.0 [facility] Comment on above: Performed By: #### P SASC #### [facility] [address] [place] [address] Dr. Shabnam Rae Erythrocyte distribution width (RBC) [Ratio] 14.8 % Normal 11.0-15.0 [facility] Comment on above: Performed By: #### P SASC #### [facility] [address] [place] [address] Dr. Shabnam Rae Hematocrit (Bld) [Volume fraction] 49.9 % Normal 42.0-54.0 [facility] Comment on above: Performed By: #### P SASC #### [facility] [address] [address] [address] Shabnam Rae Hemoglobin (Bld) [Mass/Vol] 16.0 g/dL Normal 14.0-18.0 [facility] Comment on above: Performed By: #### P SASC #### [facility] [address] [place] [address] [address] Shabnam Rae IG # 0.04 10e3/ul Critically high 0.00-0.03 [facility] Comment on above: Performed By: #### P SASC #### [facility] [address] [place] [address] Dr. Shabnam Rae IG % 0.6 % Critically high 0.0-0.5 [facility] Comment on above: Performed By: #### P SASC #### [facility] [address] [address] [address] Shabnam Rae LYMPH # 1.0 103/ul Critically low 1.2-3.8 [facility] Comment on above: Performed By: #### P SASC #### [facility] [address] [place] [address] Dr. Shabnam Rae Lymphocytes/100 WBC (Bld) 16.2 % Critically low 20.5-60.0 [facility] Comment on above: Performed By: #### P SASC #### [facility] [address] [address] [address] Shabnam Rae MANUAL DIFF REQ NO Normal [facility] Comment on above: Performed By: #### P SASC #### [facility] [address] [address] [address] Shabnam Rae MCH (RBC) [Entitic mass] 27.7 pg Normal 25.9-34.0 [facility] Comment on above: Performed By: #### P SASC #### [facility] [address] [place] [address] Dr. Shabnam Rae MCHC (RBC) [Mass/Vol] 32.1 g/dL Normal 29.9-35.2 [facility] Comment on above: Performed By: #### P SASC #### [facility] [address] [address] [address] Shabnam Rae MCV (RBC) [Entitic vol] 86.3 fL Normal 80.0-94.0 [facility] Comment on above: Performed By: #### P SASC #### [facility] [address] [place] [address] Dr. Shabnam Rae MONO # 0.5 103/ul Normal 0.3-0.8 [facility] Comment on above: Performed By: #### P SASC #### [facility] [address] [place] [address] Dr. Shabnam Rae Monocytes/100 WBC (Bld) 7.6 % Normal 1.7-12.0 [facility] Comment on above: Performed By: #### P SASC #### [facility] [address] [place] [address] Dr. Shabnam Rae NEUT # 4.6 103/ul Normal 1.4-6.5 [facility] Comment on above: Performed By: #### P SASC #### [facility] [address] [place] [address] Dr. Shabnam Rae Neutrophils/100 WBC (Bld) 72.8 % Normal 43.0-75.0 [facility] Comment on above: Performed By: #### P SASC #### [facility] [address] [place] [address] Dr. Shabnam Rae Platelet mean volume (Bld) [Entitic vol] 9.8 fL Normal 9.5-13.5 [facility] Comment on above: Performed By: #### P SASC #### [facility] [address] [place] [address] Dr. Shabnam Rae PLT 203 103/ul Normal 150-450 [facility] Comment on above: Performed By: #### P SASC #### [facility] [address] [place] [address] Dr. Shabnam Rae RBC 5.78 106/ul Normal 4.70-6.10 [facility] Comment on above: Performed By: #### P SASC #### [facility] [address] [address] [address] Shabnam Rae WBC 6.3 103/ul Normal 4.0-11.0 [facility] Comment on above: Performed By: #### P SASC #### [facility] [address] [place] [address] Dr. Shabnam Rae FREE THYROXINE INDEX T7on FTI 2.05 Normal 1.30-4.50 [facility] Comment on above: Performed By: #### T SH, CMP, LIPID, T7, URIC #### [facility] [address] [place] [address] Dr. Shabnam Rae T3U 33.0 % Normal 33.0-40.0 [facility] Comment on above: Performed By: #### T SH, CMP, LIPID, T7, URIC #### [facility] [address] [place] [address] Dr. Shabnam Rae T4 [Mass/Vol] 6.20 ug/dL Normal 4.50-12.10 [facility] Comment on above: Performed By: #### T SH, CMP, LIPID, T7, URIC #### [facility] [address] [place] [address] Dr. Shabnam Rae GLYCOHEMOGLOBIN A1Con 2022 ADA RECOMMENDATION SEE BELOW Normal [facility] Comment on above: Result Comment: ADA RECOMMENDED LIMIT 4.0 - 6.0 ADA THERAPEUTIC TARGET < 7.0 ACTION SUGGESTED > 7.0 Performed By: #### P SASC #### [facility] [address] [place] [address] Dr. Shabnam Rae Glucose [Mass/Vol] 114 mg/dL Normal [facility] Comment on above: Performed By: #### P SASC #### [facility] [address] [place] [address] Dr. Shabnam Rae HbA1c (Bld) [Mass fraction] 5.6 % Normal 4.5-6.2 [facility] Comment on above: Performed By: #### P SASC #### [facility] [address] [address] [address] Shabnam Rae LIPID PROFILEon 12-01-2022 CHOL-HDL RATIO NORM SEE BELOW Normal [facility] Comment on above: Result Comment: 3.3 - 4.4 LOW RISK 4.4 - 7.1 AVERAGE RISK 7.1 - 11.0 MODERATE RISK >11.0 HIGH RISK Performed By: #### T SH, CMP, LIPID, T7, URIC #### [facility] [address] [address] [address] Shabnam Rae Cholesterol [Mass/Vol] 176 mg/dL Normal <=200 [facility] Comment on above: Performed By: #### T SH, CMP, LIPID, T7, URIC #### [facility] [address] [address] [address] Shabnam Rae Cholesterol in HDL [Mass/Vol] 48 mg/dL Normal 40-60 [facility] Comment on above: Performed By: #### T SH, CMP, LIPID, T7, URIC #### [facility] [address] [address] [address] Shabnam Rae Cholesterol in LDL [Mass/Vol] 108.2 mg/dL Normal [facility] Comment on above: Performed By: #### T SH, CMP, LIPID, T7, URIC #### [facility] [address] [address] [address] Shabnam Rae Cholesterol.total/Ch olesterol in HDL [Mass ratio] 3.7 {ratio} Normal [facility] Comment on above: Performed By: #### T SH, CMP, LIPID, T7, URIC #### [facility] [address] [address] [address] Shabnam Rae HDL NORMAL > or = 60 mg/dl - LOW CARDIOVASCULAR RISK <40 mg/dl - HIGH CARDIOVASCULAR RISK Normal [facility] Comment on above: Performed By: #### T SH, CMP, LIPID, T7, URIC #### [facility] [address] [address] [address] Shabnam Rae LDL CALC NORMAL SEE BELOW Normal [facility] Comment on above: Result Comment: <100 mg/dl OPTIMAL 100 - 129 mg/dl NEAR OR ABOVE OPTIMAL 130 - 159 mg/dl BORDERLINE HIGH 160 - 189 mg/dl HIGH >190 mg/dl VERY HIGH Performed By: #### T SH, CMP, LIPID, T7, URIC #### [facility] [address] [address] [address] Shabnam Rae Triglyceride [Mass/Vol] 99 mg/dL Normal <=150 [facility] Comment on above: Performed By: #### T SH, CMP, LIPID, T7, URIC #### [facility] [address] [address] [address] Shabnam Rae VLDL CALC 19.8 mg/dL Normal [facility] Comment on above: Performed By: #### T SH, CMP, LIPID, T7, URIC #### [facility] [address] [place] [address] Dr. Shabnam Rae PROF 14(COMP METB)on 023 Albumin [Mass/Vol] 4.1 g/dL Normal 3.4-5.0 [facility] Comment on above: Performed By: #### T SH, CMP, LIPID, T7, URIC #### [facility] [address] [place] [address] Dr. Shabnam Rae Albumin/Globulin [Mass ratio] 1.1 {ratio} Normal [facility] Comment on above: Performed By: #### T SH, CMP, LIPID, T7, URIC #### [facility] [address] [address] [address] Shabnam Rae ALP [Catalytic activity/Vol] 101 U/L Normal 46-116 [facility] Comment on above: Performed By: #### T SH, CMP, LIPID, T7, URIC #### [facility] [address] [address] [address] Shabnam Rae ALT [Catalytic activity/Vol] 26 U/L Normal 16-63 [facility] Comment on above: Performed By: #### T SH, CMP, LIPID, T7, URIC #### [facility] [address] [address] [address] Shabnam Rae Anion gap [Moles/Vol] 10.1 mmol/L Normal [facility] Comment on above: Performed By: #### T SH, CMP, LIPID, T7, URIC #### [facility] [address] [address] [address] Shabnam Rae AST [Catalytic activity/Vol] 19 U/L Normal 15-37 [facility] Comment on above: Performed By: #### T SH, CMP, LIPID, T7, URIC #### [facility] [address] [address] [address] Shabnam Rae Bilirubin [Mass/Vol] 0.8 mg/dL Normal 0.2-1.0 [facility] Comment on above: Performed By: #### T SH, CMP, LIPID, T7, URIC #### [facility] [address] [address] [address] Shabnam Rae Calcium [Mass/Vol] 9.5 mg/dL Normal 8.5-10.1 [facility] Comment on above: Performed By: #### T SH, CMP, LIPID, T7, URIC #### [facility] [address] [address] [address] Shabnam Rae Chloride [Moles/Vol] 102 mmol/L Normal 98-107 [facility] Comment on above: Performed By: #### T SH, CMP, LIPID, T7, URIC #### [facility] [address] [address] [address] Shabnam Rae CO2 [Moles/Vol] 32.4 mmol/L Critically high 21.0-32.0 [facility] Comment on above: Performed By: #### T SH, CMP, LIPID, T7, URIC #### [facility] [address] [address] [address] Shabnam Rae Creatinine [Mass/Vol] 1.00 mg/dL Normal 0.70-1.30 [facility] Comment on above: Performed By: #### T SH, CMP, LIPID, T7, URIC #### [facility] [address] [address] [address] Shabnam Rae EGFR-AF IRAQI >60 Normal >=60 [facility] Comment on above: Performed By: #### T SH, CMP, LIPID, T7, URIC #### [facility] [address] [address] [address] Shabnam Rae EGFR-NON AF IRAQI >60 Normal >=60 [facility] Comment on above: Performed By: #### T SH, CMP, LIPID, T7, URIC #### [facility] [address] [address] [address] Shabnam Rae Globulin (S) [Mass/Vol] 3.8 g/dL Normal [facility] Comment on above: Performed By: #### T SH, CMP, LIPID, T7, URIC #### [facility] [address] [place] [address] Dr. Shabnam Rae Glucose [Mass/Vol] 94 mg/dL Normal 74-106 [facility] Comment on above: Performed By: #### T SH, CMP, LIPID, T7, URIC #### [facility] [address] [place] [address] Dr. Shabnam Rae Potassium [Moles/Vol] 3.5 mmol/L Normal 3.5-5.1 [facility] Comment on above: Performed By: #### T SH, CMP, LIPID, T7, URIC #### [facility] [address] [place] [address] Dr. Shabnam Rae Protein [Mass/Vol] 7.9 g/dL Normal 6.4-8.2 [facility] Comment on above: Performed By: #### T SH, CMP, LIPID, T7, URIC #### [facility] [address] [place] [address] Dr. Shabnam Rae Sodium [Moles/Vol] 141 mmol/L Normal 136-145 [facility] Comment on above: Performed By: #### T SH, CMP, LIPID, T7, URIC #### [facility] [address] [place] [address] Dr. Shabnam Rae Urea nitrogen [Mass/Vol] 15.0 mg/dL Normal 7.0-18.0 [facility] Comment on above: Performed By: #### T SH, CMP, LIPID, T7, URIC #### [facility] [address] [address] [address] Shabnam Rae Urea nitrogen/Creatinine [Mass ratio] 15.0 mg/mg Normal [facility] Comment on above: Performed By: #### T SH, CMP, LIPID, T7, URIC #### [facility] [address] [address] [address] Shabnam Rae TSHon 12-01-2022 TSH 1.504 uIU/mL Normal 0.358-3.740 [facility] Comment on above: Performed By: #### T SH, CMP, LIPID, T7, URIC #### [facility] [id number] Shabnam Rae URIC ACID SERUMon 12-01-2022 Urate [Mass/Vol] 6.9 mg/dL Normal 3.5-7.2 [facility] Comment on above: Performed By: #### T SH, CMP, LIPID, T7, URIC #### [facility] [address] [address] [address] Shabnam Rae TESTOSTERONE, TOTALon 2021 Testosterone [Mass/Vol] 244 ng/dL Critically low 264-916 [facility] Comment on above: Result Comment: Adul t male reference interval is based on a population of healthy nonobese males (BMI <30) between 19 and 39 years old. Dima et.al. JCEM 2017,102;7753-8428. PMID: 47261277. Performed By: #### P SAFREE #### [facility] [address] [address] [address] Shabnam Rae TESTOSTERONE, FREE,DIRECT, T OTALon 03-16-2022 Free Testosterone(Direct) 2.1 pg/mL Critically low 7.2-24.0 [facility] Comment on above: Result Comment: Perf ormed at: BN Performed By: #### C VDTBH #### [facility] [address] [address] [address] Shabnam Rae Testosterone [Mass/Vol] 252 ng/dL Critically low 264-916 [facility] Comment on above: Result Comment: Adul t male reference interval is based on a population of healthy nonobese males (BMI <30) between 19 and 39 years old. Dima, et.al. JCEM 2017,102;3766-8034. PMID: 11826846. Performed at: CB Performed By: #### C [facility] #### [facility] [address] [address] [address] Shabnam Rae Formson 02-26-2022 Forms [id number] 7#1.00CD:127 Normal [facility] Screenson 02-26-2022 Screens [id number]#1.00CD:127 Normal [facility] Screens [id number] #1.00CD:127 Normal [facility] Urology Office/Clinic Noteon 02-26-2022 Urology Office/Clinic Note Chief Complaint referred Hydrocele HPI Staff Matty is here today as a new patient for hydrocele and possible varicocele. CT abd/Pelvis w con done on 01/04/22 impression shows no acute intra-abdominal inflammatory process identified. CT wo contrast impression shows Prior left inguinal hernia repair. No acute intrapelvic process, Abnormal scrotal enlargement with concern for scrotal wall cellulitis. Single tiny gas bubble involving the left scrotal wall is noted, Large right-sided hydrocele, 4.6 x 5.7 x 7.6 cm. The fluid may be present proteinaceous as it has attenuation measurement of 27 Hounsfield units, The fluid displaces the right testicle laterally. Testicular parenchyma is otherwise homogeneous. Bilateral varicoceles may be present. Further evaluation with scrotal ultrasound recommended. US scrotum US done on 01/04/22 impression showed 3.8 cm complex septated right hydrocele, diffuse scrotal wall thickening, moderate sized left variocele, no testicular torsion or evidence of orchitis. Dysuria: _Denies Incomplete bladder emptying: _Denies Hematuria: _Denies Frequency: _Denies Urgency: _Denies Nocturia: _1-2 times a night Stream: _steady stream stacia weak some days Leaking: _Denies Post void dripping: _Denies Wearing pads/ Depends: _Denies Urge incontinence: _Denies Stress incontinence: _Denies Incontinence without Sensory Awareness: _Denies Abdominal pain: _occ Flank pain: _occ Sexual complaints: _ History of Present Illness Tests Reviewed: Reviewed UA, external meds (pt unable to report, states he does not know), external CT scan, US, labs and reports. new pt paperwork I have reviewed and verified the staff HPI to be accurate for this encounter. There have been no associated fever, chills, flank pain, or blood in the urine. Denies any urinary infections since last encounter. Review of Systems PHQ Score Initial Depression Screen Score: 0 ROS - Provider Constitutional: denies weight loss, denies hot flashes. Eyes: denies eye problems. Gastrointestinal: denies nausea, denies vomiting. Cardiovascular: denies chest pain or angina. Integumentary: no dryness Musculoskeletal: denies musculoskeletal symptoms. ENMT: denies otolaryngeal symptoms. Respiratory: no shortness of breath. Heme/Lymph: denies easy bleeding tendency, denies easy bruising tendency. Psychiatric: no confusion, no anxiety. Genitourinary: see HPI Physical Exam Vitals & Measurements HR: 74(Peripheral) RR: 16 BP: 157/107 HT: 189.6 cm HT: 189.6 cm WT: 119.9 kg WT: 119.9 kg BMI: 33.35 General Appearance: alert, no distress, well nourished, well developed male. Head: normocephalic . Eyes: normal orbit and globe. ENMT: normal examination of external ears. Chest: symmetric chest rise, respirations non labored. Cardiovascular: regular rate and rhythm. Abdomen: soft, non distended, no tenderness Genitourinary: scrotum - skin scars from prior piercing, normal testes BL without tenderness, normal urethra, normal epididymis, normal vas deferens/spermatic cord. Mild R hydrocele, non tender, no skin erythema or crepitus. No visible varicocele . Flank Pain: none. Bladder: nonpalpable. Penis: normal shaft, normal glans. Skin: warm, dry, no bruising. Psychiatric: cooperative, affect appropriate for age, normal judgement, euthymic mood. Assessment/Plan 1. Hydrocele (N43.3: Hydrocele, unspecified) 6.8 cm complex septated right hydrocele, diffuse scrotal wall thickening. First time event after trying to reinsert old piercing. Resolved with abx, denies any current sx. Exam today benign Recommend scrotal support prn for pain, avoid inciting factors. Pt will follow up as needed with our office. Told pt that if he start to have any pain, tenderness, soreness, redness to call office or go to the nearest ER. 2. 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 Not clinically noted today. Denies symptoms or other related issues. 3. BPH without urinary obstruction (N40.0: Benign prostatic hyperplasia without lower urinary tract symptoms) IPSS- 5.5 EZEQUIEL-14 UA- clear/negative no signs of any infections. On lasix causing increased urination. Denies bothersome LUTS. Declines medications at this time. Discussed bladder physiology and potential decompensation. All questions and concerns were discussed. Pt acknowledge and understands. Pt will call our office with any changes in urinary symptoms. Follow-up With When Contact Information Viola Grullon MD, URL, URO Additional Instructions: Patient Education Hydrocele, Adult I, Helen Leung, personally scribed for Dr. Grullon on 02/25/2022 11:15:58. . Documentation recorded by the scribe, Helen Leung, accurately reflects the services(s) I performed and decisions made by me. Authenticated by Dr. Grullon on 02/26/2022 00:19:46. Problem List/Past Medical History Ongoing No qualifying data (more content not included)... Normal [facility] Comment on above: Result Comment: Elec tronically Signed By: Viola Grullon MD\.br\Date and Time Signed: 02/26/22 00:20 EDT\.br\Electronically Co-Signed By: Helen Leung\.br\Date and Time Co-Signed: 02/25/22 11:16 EDT Ambulatory Visit Summaryon 0 02-25-2022 Ambulatory Visit Summary MATTY GARCES :1970 Visit Date:02/25/2022 Ambulatory Visit Instructions Your Diagnosis Hydrocele Varicocele BPH without urinary obstruction Tests Performed Urnls Dip Stick Auto w/o Microscopy POC 70169 Your Care Team Attending Physician - Viola Grullon MD Primary Care Physician - Venus Mendez MD Procedures Performed Colonoscopy, Hemorrhoid, Hernia, Tonsillectomy. Discharge Vitals Heart Rate (Peripheral) 74 Respiratory Rate 16 Blood Pressure 157/107 Height 189.6 cm Height 189.6 cm Weight 119.9 kg Weight 119.9 kg BMI 33.35 What to do next You Need to Schedule the Following Appointments Follow Up with Mitchel DELGADO, Viola Cohn, URL, URO When: Where: Test Results Urnls Dip Stick Auto w/o Microscopy POC 12554 (02/25/2022) Bilirubin Urine Dipstick - Negative Blood Urine Dipstick - Negative Glucose Urine Dipstick - Negative Ketones Urine Dipstick - Negative Leukocytes Urine Dipstick - Negative Nitrite Urine Dipstick - Negative Protein Urine Dipstick - Negative Specific [place] Urine Dipstick - >=1.030 Urine Appearance Urine Dipstick - Clear Urine Color Urine Dipstick - Yellow Urobilinogen Urine Dipstick - Normal 0.2-1 EU/dl pH Urine Dipstick - 5.5 Allergies Liver (Unknown) Education Materials Hydrocele, Adult A hydrocele is a collection of fluid in the loose pouch of skin that holds the testicles (scrotum). This may happen because: ? The amount of fluid produced in the scrotum is not absorbed by the rest of the body. ? Fluid from the abdomen fills the scrotum. Normally, the testicles develop in the abdomen then move (drop) into to the scrotum before . The tube that the testicles travel through usually closes after the testicles drop. If the tube does not close, fluid from the abdomen can fill the scrotum. This is less common in adults. What are the causes? The cause of a hydrocele in adults is usually not known. However, it may be caused by: ? An injury to the scrotum. ? An infection (epididymitis). ? Decreased blood flow to the scrotum. ? Twisting of a testicle (testicular torsion). ? A defect. ? A tumor or cancer of the testicle. What are the signs or symptoms? A hydrocele feels like a water-filled balloon. It may also feel heavy. Other symptoms include: ? Swelling of the scrotum. The swelling may decrease when you lie down. You may also notice more swelling at night than in the morning. ? Swelling of the groin. ? Mild discomfort in the scrotum. ? Pain. This can develop if the hydrocele was caused by infection or twisting. The larger the hydrocele, the more likely you are to have pain. How is this diagnosed? This condition may be diagnosed based on: ? Physical exam. ? Medical history. You may also have other tests, including: ? Imaging tests, such as ultrasound. ? Blood or urine tests. How is this treated? Most hydroceles go away on their own. If you have no discomfort or pain, your health care provider may suggest close monitoring of your condition (called watch and wait or watchful waiting) until the condition goes away or symptoms develop. If treatment is needed, it may include: ? Treating an underlying condition. This may include using an antibiotic medicine to treat an infection. ? Surgery to stop fluid from collecting in the scrotum. ? Surgery to drain the fluid. Options include: ? Needle aspiration. A needle is used to drain fluid. However, the fluid buildup will come back quickly. ? Hydrocelectomy. For this procedure, an incision is made in the scrotum to remove the fluid sac. Follow these instructions at home: ? Watch the hydrocele for any changes. ? Take mffg-prl-ntjtpcn and prescription medicines only as told by your health care provider. ? If you were prescribed an antibiotic medicine, use it as told by your health care provider. Do not stop taking the antibiotic even if you start to feel better. ? Keep all follow-up visits as told by your health care provider. This is important. Contact a health care provider if: ? You notice any changes in the hydrocele. ? The swelling in your scrotum or groin gets worse. ? The hydrocele becomes red, firm, painful, or tender to the touch. ? You have a fever. Get help right away if you: ? Develop a lot of pain, or your pain becomes worse. Summary ? A hydrocele is a collection of fluid in the loose pouch of skin that holds the testicles (scrotum). ? Hydroceles can cause swelling, discomfort, and sometimes pain. ? In adults, the cause of a hydrocele usually is not known. However, it is sometimes caused by an infection or a rotation and twisting of the scrotum. ? Treatment is usually not needed. Hydroceles often go away on their own. If a hydrocele causes pain, treatment may be given to ease the pain. This information is not intended t (more content not included)... Normal [facility] Patient Educationon 02-26-20 Patient Education Urology Hydrocele, Adult A hydrocele is a collection of fluid in the loose pouch of skin that holds the testicles (scrotum). This may happen because: ? The amount of fluid produced in the scrotum is not absorbed by the rest of the body. ? Fluid from the abdomen fills the scrotum. Normally, the testicles develop in the abdomen then move (drop) into to the scrotum before . The tube that the testicles travel through usually closes after the testicles drop. If the tube does not close, fluid from the abdomen can fill the scrotum. This is less common in adults. What are the causes? The cause of a hydrocele in adults is usually not known. However, it may be caused by: ? An injury to the scrotum. ? An infection (epididymitis). ? Decreased blood flow to the scrotum. ? Twisting of a testicle (testicular torsion). ? A defect. ? A tumor or cancer of the testicle. What are the signs or symptoms? A hydrocele feels like a water-filled balloon. It may also feel heavy. Other symptoms include: ? Swelling of the scrotum. The swelling may decrease when you lie down. You may also notice more swelling at night than in the morning. ? Swelling of the groin. ? Mild discomfort in the scrotum. ? Pain. This can develop if the hydrocele was caused by infection or twisting. The larger the hydrocele, the more likely you are to have pain. How is this diagnosed? This condition may be diagnosed based on: ? Physical exam. ? Medical history. You may also have other tests, including: ? Imaging tests, such as ultrasound. ? Blood or urine tests. How is this treated? Most hydroceles go away on their own. If you have no discomfort or pain, your health care provider may suggest close monitoring of your condition (called watch and wait or watchful waiting) until the condition goes away or symptoms develop. If treatment is needed, it may include: ? Treating an underlying condition. This may include using an antibiotic medicine to treat an infection. ? Surgery to stop fluid from collecting in the scrotum. ? Surgery to drain the fluid. Options include: ? Needle aspiration. A needle is used to drain fluid. However, the fluid buildup will come back quickly. ? Hydrocelectomy. For this procedure, an incision is made in the scrotum to remove the fluid sac. Follow these instructions at home: ? Watch the hydrocele for any changes. ? Take nctw-mfw-uvdarmh and prescription medicines only as told by your health care provider. ? If you were prescribed an antibiotic medicine, use it as told by your health care provider. Do not stop taking the antibiotic even if you start to feel better. ? Keep all follow-up visits as told by your health care provider. This is important. Contact a health care provider if: ? You notice any changes in the hydrocele. ? The swelling in your scrotum or groin gets worse. ? The hydrocele becomes red, firm, painful, or tender to the touch. ? You have a fever. Get help right away if you: ? Develop a lot of pain, or your pain becomes worse. Summary ? A hydrocele is a collection of fluid in the loose pouch of skin that holds the testicles (scrotum). ? Hydroceles can cause swelling, discomfort, and sometimes pain. ? In adults, the cause of a hydrocele usually is not known. However, it is sometimes caused by an infection or a rotation and twisting of the scrotum. ? Treatment is usually not needed. Hydroceles often go away on their own. If a hydrocele causes pain, treatment may be given to ease the pain. This information is not intended to replace advice given to you by your health care provider. Make sure you discuss any questions you have with your health care provider. Document Released: 02/17/2011 Document Revised: 09/10/2018 Document Reviewed: 09/10/2018 [employer] Patient Education ? 2019 [employer] [facility] ED Note-Physicianon 05-24-20 22 ED Note-Physician [id number]#1.00CD:127 Normal [facility] RAD - Ultrasound Reporton RAD - Ultrasound Report [id number] #1.00CD:127 Normal [facility] RAD - CT Reporton 02-02-2022 RAD - CT Report [id number]#1.00CD:127 Normal [facility] RAD - CT Report [id number]#[id number]:127 Normal [facility] CBC AUTO DIFFon 01-05-2022 BASO # 0.0 103/ul Normal 0.0-0.1 [facility] Comment on above: Performed By: #### P SAFREE #### [facility] [address] [address] [address] Shabnam Rae Basophils/100 WBC (Bld) 0.6 % Normal 0.2-2.0 [facility] Comment on above: Performed By: #### P SAFREE #### [facility] [address] [address] [address] Shabnam Rae EO # 0.1 103/ul Normal 0.0-0.7 [facility] Comment on above: Performed By: #### P SAFREE #### [facility] [address] [address] [address] Shabnam Rae Eosinophils/100 WBC (Bld) 2.1 % Normal 0.9-7.0 [facility] Comment on above: Performed By: #### P SAFREE #### [facility] [address] [address] [address] Shabnam Rae Erythrocyte distribution width (RBC) [Ratio] 13.1 % Normal 11.0-15.0 [facility] Comment on above: Performed By: #### P SAFREE #### [facility] [address] [place] [address] Dr. Shabnam Rae Hematocrit (Bld) [Volume fraction] 43.1 % Normal 42.0-54.0 [facility] Comment on above: Performed By: #### P SAFREE #### [facility] [address] [address] [address] Shabnam Rae Hemoglobin (Bld) [Mass/Vol] 13.7 g/dL Critically low 14.0-18.0 [facility] Comment on above: Performed By: #### P SAFREE #### [facility] [address] [place] [address] Dr. Shabnam Rae IG # 0.04 10e3/ul Critically high 0.00-0.03 [facility] Comment on above: Performed By: #### P SAFREE #### [facility] [address] [place] [address] Dr. Shabnam Rae IG % 0.6 % Critically high 0.0-0.5 [facility] Comment on above: Performed By: #### P SAFREE #### [facility] [address] [place] [address] Dr. Shabnam Rae LYMPH # 0.9 103/ul Critically low 1.2-3.8 [facility] [place] Comment on above: Performed By: #### P SAFREE #### [facility] [address] [place] [address] Dr. Shabnam Rae Lymphocytes/100 WBC (Bld) 13.1 % Critically low 20.5-60.0 [facility] Comment on above: Performed By: #### P SAFREE #### [facility] [address] [place] [address] Dr. Shabnam Rae MANUAL DIFF REQ NO Normal [facility] Comment on above: Performed By: #### P SAFREE #### [facility] [address] [place] [address] Dr. Shabnam Rae MCH (RBC) [Entitic mass] 29.5 pg Normal 25.9-34.0 [facility] Comment on above: Performed By: #### P SAFREE #### [facility] [address] [place] [address] Dr. Shabnam Rae MCHC (RBC) [Mass/Vol] 31.8 g/dL Normal 29.9-35.2 [facility] Comment on above: Performed By: #### P SAFREE #### [facility] [address] [address] [address] Shabnam Rae MCV (RBC) [Entitic vol] 92.9 fL Normal 80.0-94.0 [facility] Comment on above: Performed By: #### P SAFREE #### [facility] [address] [address] [address] Shabnam Rae MONO # 0.4 103/ul Normal 0.3-0.8 [facility] Comment on above: Performed By: #### P SAFREE #### [facility] [address] [address] [address] Shabnam Rae Monocytes/100 WBC (Bld) 5.4 % Normal 1.7-12.0 [facility] Comment on above: Performed By: #### P SAFREE #### [facility] [address] [place] [address] Dr. Shabnam Rae NEUT # 5.2 103/ul Normal 1.4-6.5 [facility] Comment on above: Performed By: #### P SAFREE #### [facility] [address] [place] [address] Dr. Shabnam Rae Neutrophils/100 WBC (Bld) 78.2 % Critically high 43.0-75.0 [facility] Comment on above: Performed By: #### P SAFREE #### [facility] [address] [place] [address] Dr. Shabnam Rae Platelet mean volume (Bld) [Entitic vol] 10.9 fL Normal 9.5-13.5 [facility] Comment on above: Performed By: #### P SAFREE #### [facility] [address] [place] [address] Dr. Shabnam Rae PLT 153 103/ul Normal 150-450 [facility] Comment on above: Performed By: #### P SAFREE #### [facility] [address] [place] [address] Dr. Shabnam Rae RBC 4.64 106/ul Critically low 4.70-6.10 [facility] Comment on above: Performed By: #### P SAFREE #### [facility] [address] [address] [address] Shabnam Rae WBC 6.6 103/ul Normal 4.0-11.0 [facility] Comment on above: Performed By: #### P SAFREE #### [facility] [address] [address] [address] Shabnam Rae CRPon 01-05-2022 CRP 0.9 mg/dL Normal <=1.0 [facility] Comment on above: Performed By: #### P SAFREE #### [facility] [address] [place] [address] Dr. Shabnam Rae PROF 14(COMP METB)on 022 Albumin [Mass/Vol] 3.6 g/dL Normal 3.4-5.0 [facility] Comment on above: Performed By: #### P SAFREE #### [facility] [address] [place] [address] Dr. Shabnam Rae Albumin/Globulin [Mass ratio] 1.0 {ratio} Normal [facility] Comment on above: Performed By: #### P SAFREE #### [facility] [address] [place] [address] Dr. Shabnam Rae ALP [Catalytic activity/Vol] 114 U/L Normal 46-116 [facility] Comment on above: Performed By: #### P SAFREE #### [facility] [address] [place] [address] Dr. Shabnam Rae ALT [Catalytic activity/Vol] 26 U/L Normal 16-63 [facility] Comment on above: Performed By: #### P SAFREE #### [facility] [address] [place] [address] Dr. Shabnam Rae Anion gap [Moles/Vol] 9.3 mmol/L Normal [facility] Comment on above: Performed By: #### P SAFREE #### [facility] [address] [place] [address] Dr. Shabnam Rae AST [Catalytic activity/Vol] 19 U/L Normal 15-37 [facility] Comment on above: Performed By: #### P SAFREE #### [facility] [address] [address] [address] Shabnam Rae Bilirubin [Mass/Vol] 0.5 mg/dL Normal 0.2-1.0 [facility] Comment on above: Performed By: #### P SAFREE #### [facility] [address] [address] [address] Shabnam Rae Calcium [Mass/Vol] 8.9 mg/dL Normal 8.5-10.1 [facility] Comment on above: Performed By: #### P SAFREE #### [facility] [address] [address] [address] Shabnam Rae Chloride [Moles/Vol] 106 mmol/L Normal 98-107 [facility] Comment on above: Performed By: #### P SAFREE #### [facility] [address] [place] [address] Dr. Shabnam Rae CO2 [Moles/Vol] 30.7 mmol/L Normal 21.0-32.0 [facility] Comment on above: Performed By: #### P SAFREE #### [facility] [address] [place] [address] Dr. Shabnam Rae Creatinine [Mass/Vol] 1.15 mg/dL Normal 0.70-1.30 [facility] Comment on above: Performed By: #### P SAFREE #### [facility] [address] [place] [address] Dr. Shabnam Rae EGFR-AF IRAQI >60 Normal >=60 [facility] Comment on above: Performed By: #### P SAFREE #### [facility] [address] [place] [address] Dr. Shabnam Rae EGFR-NON AF IRAQI >60 Normal >=60 [facility] Comment on above: Performed By: #### P SAFREE #### [facility] [address] [place] [address] Dr. Shabnam Rae Globulin (S) [Mass/Vol] 3.6 g/dL Normal [facility] Comment on above: Performed By: #### P SAFREE #### [facility] [address] [place] [address] Dr. Shabnam Rae Glucose [Mass/Vol] 117 mg/dL Critically high 74-106 [facility] Comment on above: Performed By: #### P SAFREE #### [facility] [address] [address] [address] Shabnam Rae Potassium [Moles/Vol] 4.0 mmol/L Normal 3.5-5.1 [facility] Comment on above: Performed By: #### P SAFREE #### [facility] [address] [address] [address] Shabnam Rae Protein [Mass/Vol] 7.2 g/dL Normal 6.1-8.2 [facility] Comment on above: Performed By: #### P SAFREE #### [facility] [address] [place] [address] Dr. Shabnam Rae Sodium [Moles/Vol] 142 mmol/L Normal 136-145 [facility] Comment on above: Performed By: #### P SAFREE #### [facility] [address] [place] [address] Dr. Shabnam Rae Urea nitrogen [Mass/Vol] 15.0 mg/dL Normal 7.0-18.0 [facility] Comment on above: Performed By: #### P SAFREE #### [facility] [address] [place] [address] Dr. Shabnam Rae Urea nitrogen/Creatinine [Mass ratio] 13.0 mg/mg Normal [facility] Comment on above: Performed By: #### P SAFREE #### [facility] [address] [place] [address] Dr. Shabnam Rae US SCROTUMon 01-05-2022 US SCROTUM EXAMINATION: US SCROTUM HISTORY: Acute pelvic pain COMPARISON: No relevant comparison available. TECHNIQUE: High-resolution sonographic imaging of the scrotum and contents was performed. FINDINGS: The right testicle is normal in size, contour and homogeneous echotexture with no focal mass. The right testicle measures 5.7 x 2.9 x 2.2 cm. Normal color and Doppler flow. PSV/EDV: 3.1/1.7 cm/s. The right epididymis is not definitively seen. Complex right hydrocele measuring 6.8 x 4.5 x 3.7 cm with multiple septations. No right varicocele The left testicle is normal in size, contour and homogeneous echotexture with no focal mass. The left testicle measures 4.2 x 2.3 x 2.6 cm. Normal color and Doppler flow. PSV/EDV: 3.0/1.5 cm/s. The left epididymis is normal in appearance. 4 mm area of anechoic echogenicity in the epididymal head, a cyst versus spermatocele. Tiny hydrocele. Moderate left varicocele Diffuse thickening of the scrotal wall measuring up to 5.3 mm IMPRESSION: 6.8 cm complex septated right hydrocele Diffuse scrotal wall thickening Moderate sized left varicocele No testicular torsion or evidence of orchitis Electronically authenticated by: ALVINA CAICEDO Date: 2022-01-05 08:48 Normal [facility] CBC AUTO DIFFon 01-04-2022 BASO # 0.1 103/ul Normal 0.0-0.1 [facility] Comment on above: Performed By: #### C BC #### [facility] [address] [place] [address] Dr. Shabnam Rae Basophils/100 WBC (Bld) 0.8 % Normal 0.2-2.0 [facility] Comment on above: Performed By: #### C BC #### [facility] [address] [place] [address] Dr. Shabnam Rae EO # 0.1 103/ul Normal 0.0-0.7 [facility] Comment on above: Performed By: #### C BC #### [facility] [address] [place] [address] Dr. Shabnam Rae Eosinophils/100 WBC (Bld) 1.5 % Normal 0.9-7.0 [facility] Comment on above: Performed By: #### C BC #### [facility] [address] [place] [address] Dr. Shabnam Rae Erythrocyte distribution width (RBC) [Ratio] 12.8 % Normal 11.0-15.0 [facility] Comment on above: Performed By: #### C BC #### [facility] [address] [address] [address] Shabnam Rae Hematocrit (Bld) [Volume fraction] 40.3 % Critically low 42.0-54.0 [facility] Comment on above: Performed By: #### C BC #### [facility] [address] [address] [address] Shabnam Rae Hemoglobin (Bld) [Mass/Vol] 13.4 g/dL Critically low 14.0-18.0 [facility] Comment on above: Performed By: #### C BC #### [facility] [address] [address] [address] Shabnam Rae IG # 0.03 10e3/ul Normal 0.00-0.03 [facility] Comment on above: Performed By: #### C BC #### [facility] [address] [place] [address] Dr. Shabnam Rae IG % 0.5 % Normal 0.0-0.5 [facility] Comment on above: Performed By: #### C BC #### [facility] [address] [place] [address] Dr. Shabnam Rae LYMPH # 1.0 103/ul Critically low 1.2-3.8 [facility] [place] Comment on above: Performed By: #### C BC #### [facility] [address] [place] [address] Dr. Shabnam Rae Lymphocytes/100 WBC (Bld) 16.4 % Critically low 20.5-60.0 [facility] Comment on above: Performed By: #### C BC #### [facility] [address] [place] [address] Dr. Shabnam Rae MANUAL DIFF REQ NO Normal [facility] Comment on above: Performed By: #### C BC #### [facility] [address] [place] [address] Dr. Shabnam Rae MCH (RBC) [Entitic mass] 29.5 pg Normal 25.9-34.0 [facility] Comment on above: Performed By: #### C BC #### [facility] [address] [place] [address] Dr. Shabnam Rae MCHC (RBC) [Mass/Vol] 33.3 g/dL Normal 29.9-35.2 [facility] Comment on above: Performed By: #### C BC #### [facility] [address] [address] [address] Shabnam Rae MCV (RBC) [Entitic vol] 88.8 fL Normal 80.0-94.0 [facility] Comment on above: Performed By: #### C BC #### [facility] [address] [place] [address] Dr. Shabnam Rae MONO # 0.6 103/ul Normal 0.3-0.8 [facility] Comment on above: Performed By: #### C BC #### [facility] [address] [place] [address] Dr. Shabnam Rae Monocytes/100 WBC (Bld) 9.6 % Normal 1.7-12.0 [facility] Comment on above: Performed By: #### C BC #### [facility] [address] [place] [address] Dr. Shabnam Rae NEUT # 4.4 103/ul Normal 1.4-6.5 [facility] Comment on above: Performed By: #### C BC #### [facility] [address] [place] [address] Dr. Shanbam Rae Neutrophils/100 WBC (Bld) 71.2 % Normal 43.0-75.0 [facility] Comment on above: Performed By: #### C BC #### [facility] [address] [place] [address] Dr. Shabnam Rae Platelet mean volume (Bld) [Entitic vol] 10.8 fL Normal 9.5-13.5 [facility] Comment on above: Performed By: #### C BC #### [facility] [address] [place] [address] Dr. Shabnam Rae PLT 158 103/ul Normal 150-450 [facility] Comment on above: Performed By: #### C BC #### [facility] [address] [place] [address] Dr. Shabnam Rae RBC 4.54 106/ul Critically low 4.70-6.10 [facility] Comment on above: Performed By: #### C BC #### [facility] [address], [place] [address] Dr. Shabnam Rae WBC 6.2 103/ul Normal 4.0-11.0 [facility] Comment on above: Performed By: #### C BC #### [facility] [address], [place] [address] ABD/PELV W CONon 01-05-[address] ABD/PELV W CON CT ABD/PELV W CON: 01/04/2022 3:37 AM EDT CLINICAL HISTORY: 51 years old Male with Acute pelvic pain. Infected penile piercing. TECHNIQUE: Axial CT images through the abdomen and pelvis are obtained after the intravenous administration of contrast. Coronal and sagittal reformations are also obtained. Dose reduction techniques were achieved by using automated exposure control and/or adjustment of mA and/or kV according to patient size and/or use of iterative reconstruction technique. COMPARISON: CT performed 07/29/2018 images with written report not available. FINDINGS: The lung bases are clear with no dependent infiltrate or effusion. The liver, gallbladder, spleen, pancreas and bilateral adrenal glands are unremarkable. The bilateral kidneys demonstrate normal enhancement without hydronephrosis. The bilateral ureters demonstrate no gross abnormality or obstruction. The stomach and small bowel are unremarkable. The appendix is visualized without inflammatory change. The colon is unremarkable. The bladder appears unremarkable. There is no evidence of aortic aneurysm present. No enlarged lymph nodes are seen. No free air or free fluid is seen. The prostate gland is within normal limits. Endplate degenerative change of the spine is present with Schmorl's nodes and spurring. No compression fracture deformities or suspicious osseous abnormalities. IMPRESSION: No acute intra-abdominal inflammatory process identified. Electronically authenticated by: MAYRA BERNAL Date: 2022-01-04 05:19 Normal [facility] CT PELVIS WO CONon 2 CT PELVIS WO CON EXAMINATION: CT PELVIS WO CON 01/04/2022 COMPARISON: CT of the abdomen and pelvis with contrast performed earlier at 4:00 AM. HISTORY: Pain TECHNIQUE: 3 mm sections were obtained through the pelvis without the use of additional contrast. Imaging was obtained below the level of the scrotum. Coronal and sagittal reconstructed images were obtained Dose reduction techniques were achieved by using automated exposure control and/or adjustment of mA and/or kV according to patient size and/or use of iterative reconstruction technique. FINDINGS: There is contrast now identified opacifying the dependent aspect of the urinary bladder lumen with no acute abnormality. Intrapelvic bowel segments appear unremarkable as does the appendix. Prior left inguinal herniorrhaphy repair noted. Small right inguinal hernia contains fat without bowel. Prostate and seminal vesicles appear otherwise unremarkable. There is no evidence of ascites or significantly enlarged lymphadenopathy. Multiple pelvic phleboliths are noted. Nonaggressive sclerotic focus anteriorly within the right ilium is again noted, ovoid in shape on image 19 measuring 8 mm. Mild arthritic changes about both SI joints and hips. No acute fracture or dislocation noted. The scrotum is enlarged. There is thickening of the overlying scrotal wall and skin. There is a single tiny gas bubble within the wall toward the left on axial image 105. A right-sided hydrocele circumscribes the displaced right testicle. This measures 5.7 x 4.6 x 7.6 cm. The fluid has attenuation measurement of 27 Hounsfield units. The testicular parenchyma overall is homogeneous. Subcentimeter calcified focus located with the penis distally near the midline measuring 5 mm is indeterminate. Bilateral varicoceles are likely present. IMPRESSION: 1. Prior left inguinal hernia repair. No acute intrapelvic process. 2. Abnormal scrotal enlargement with concern for scrotal wall cellulitis. Single tiny gas bubble involving the left scrotal wall is noted. 3. Large right-sided hydrocele, 4.6 x 5.7 x 7.6 cm. The fluid may be present proteinaceous as it has attenuation measurement of 27 Hounsfield units. The fluid displaces the right testicle laterally. Testicular parenchyma is otherwise homogeneous. Bilateral varicoceles may be present. Further evaluation with scrotal ultrasound recommended. Electronically authenticated by: MANUEL HOUGH Date: 2022-01-04 08:54 Normal [facility] CULTURE URINEon 01-04-2022 CULTURE URINE Culture Observations: No growth Normal [facility] Comment on above: Performed By: #### P [facility] #### [facility] [address] [place] [address] Dr. Shabnam Rae Covid-19 PCR (CVDTBH)on 12-13 SARS-CoV-2 (COVID-19) RNA ELIJAH+probe Ql (Unsp spec) Not detected Normal NOT DETECTED [facility] Comment on above: Result Comment: When diagnostic testing is negative, the possibility of a false negative should be considered in the context of a patient's recent exposures and the presence of clinical signs and symptoms consistent with SARS-CoV-2. This test is not yet approved or cleared by the [place] Food and Drug Administration (FDA). This test was developed by [employer], [place], [place]. The performance characteristics of this test were validated by [facility]. The results are not intended to be used as the sole means for clinical diagnosis or patient management decisions. [facility] is authorized under Clinical Laboratory Improvement Amendments (CLIA) to perform high- complexity testing. This test is not yet approved or cleared by the [place] FDA. When there are no FDA-approved or cleared tests available, and other criteria are met, FDA can make tests available under an emergency access mechanism called an Emergency Use Authorization (EUA). The EUA for this test is supported by the [employer] of Health and Human Service's declaration that circumstances exist to justify the emergency use of in vitro diagnostics for the detection and/or diagnosis of the virus that causes COVID-19. This EUA will remain in effect for the duration of the COVID-19 declaration justifying emergency of IVDs, unless it is terminated or revoked by the FDA (after which the test may no longer be used). Performed By: #### C VDTBH #### [facility] [address] [place] [address] Dr. Shabnam Rae ER URINE PROFILEon Bilirubin Ql (U) Negative Normal NEGATIVE [facility] Comment on above: Performed By: #### P SASC #### [facility] [address] [place] [address] Dr. Shabnam Rae Clarity (U) CLEAR Normal CLEAR [facility] Comment on above: Performed By: #### P SASC #### [facility] [address] [place] [address] Dr. Shabnam Rae Color (U) YELLOW Normal YELLOW [facility] Comment on above: Performed By: #### P SASC #### [facility] [address] [address] [address] Shabnam HERNANDEZ A micrscopic examination will be performed if indicated. Normal [facility] Comment on above: Performed By: #### P SASC #### [facility] [address] [address] [address] Shabnam Rae Glucose Ql (U) Negative Normal NEGATIVE [facility] Comment on above: Performed By: #### P SASC #### [facility] [address] [address] [address] Shabnam Rae Hemoglobin Ql (U) Negative Normal NEGATIVE [facility] Comment on above: Performed By: #### P SASC #### [facility] [address] [address] [address] Shabnam Rae Ketones Ql (U) Negative Normal NEGATIVE [facility] [place] Comment on above: Performed By: #### P SASC #### [facility] [address] [address] [address] Shabnam Rae LEUKOCYTES Negative Normal NEGATIVE [facility] Comment on above: Performed By: #### P SASC #### [facility] [address] [address] [address] Shabnam Rae Nitrite Ql (U) Negative Normal NEGATIVE [facility] [place] Comment on above: Performed By: #### P SASC #### [facility] [address] [address] [address] Shabnam Rae pH (U) 6.5 [pH] Normal 5-9 [facility] Comment on above: Performed By: #### P SASC #### [facility] [address] [address] [address] Shabnam Rae SPEC GRAVITY 1.010 Normal 1.005-<=1.025 [facility] Comment on above: Performed By: #### P SASC #### [facility] [address] [address] [address] Shabnam Rae UA PROTEIN Negative Normal NEGATIVE/ TRACE [facility] Comment on above: Performed By: #### P SASC #### [facility] Laboratory [address] [place] [address] Dr. Shabnam Rae UR MICRO IND NOT INDICATED Normal [facility] Comment on above: Performed By: #### P SASC #### [facility] Laboratory [address] [place] [address] Dr. Shabnam Rae Urobilinogen Qn (U) 0.2 {Sarai'U}/dL Normal 0.2 - 1. 0 [facility] Comment on above: Performed By: #### P SASC #### [facility] Laboratory [address] [place] [address] Dr. Shabnam Rae LACTATE/LACTIC ACIDon 2021 Lactate [Moles/Vol] 1.0 mmol/L Normal 0.4-2.0 [facility] Comment on above: Performed By: #### P SASC #### [facility] Laboratory [address] [place] [address] Dr. Shabnam Rae PROF CHEM 8 (BAS METB)on Anion gap [Moles/Vol] 10.0 mmol/L Normal [facility] Comment on above: Performed By: #### B MP #### [facility] Laboratory [address] [place] [address] Dr. Shabnam Rae Calcium [Mass/Vol] 8.5 mg/dL Normal 8.5-10.1 [facility] Comment on above: Performed By: #### B MP #### [facility] Laboratory [address] [place] [address] Dr. Shabnam Rae Chloride [Moles/Vol] 103 mmol/L Normal 98-107 [facility] Comment on above: Performed By: #### B MP #### [facility] Laboratory [address] [place] [address] Dr. Shabnam Rae CO2 [Moles/Vol] 29.2 mmol/L Normal 21.0-32.0 [facility] Comment on above: Performed By: #### B MP #### [facility] Laboratory [address] [place] [address] Dr. Shabnam Rae Creatinine [Mass/Vol] 1.25 mg/dL Normal 0.70-1.30 [facility] Comment on above: Performed By: #### B MP #### [facility] Laboratory [address] [address] [address] Shabnam Rae EGFR-AF IRAQI >60 Normal >=60 [facility] Comment on above: Performed By: #### B MP #### [facility] Laboratory [address] [address] [address] Shabnam Rae EGFR-NON AF IRAQI >60 Normal >=60 [facility] Comment on above: Performed By: #### B MP #### [facility] Laboratory [address] [address] [address] Shabnam Rae Glucose [Mass/Vol] 132 mg/dL Critically high 74-106 [facility] Comment on above: Performed By: #### B MP #### [facility] Laboratory [address] [address] [address] Shabnam Rae Potassium [Moles/Vol] 3.2 mmol/L Critically low 3.5-5.1 [facility] Comment on above: Performed By: #### B MP #### [facility] Laboratory [address] [address] [address] Shabnam Rae Sodium [Moles/Vol] 139 mmol/L Normal 136-145 [facility] Comment on above: Performed By: #### B MP #### [facility] Laboratory [address] [address] [address] Shabnam Rae Urea nitrogen [Mass/Vol] 19.0 mg/dL Critically high 7.0-18.0 [facility] Comment on above: Performed By: #### B MP #### [facility] Laboratory [address] [address] [address] Shabnam Rae Urea nitrogen/Creatinine [Mass ratio] 15.2 mg/mg Normal [facility] Comment on above: Performed By: #### B MP #### [facility] Laboratory [address] [address] [address] Shabnam Rae CERVICAL SPINE 2 OR 3 [facility] 07-06-2019 CERVICAL SPINE 2 OR 3 S [facility] Department of Radiology [address] [place] [id number] Patient Name: MATTY GARCES : 1970 Sex: M Age: Race: White Pt. Location: 85 Patient Status: O Ordered Date: 07/06/2019 9:10:00 AM Completed Date: 07/06/2019 09:21 AM Requesting Provider: LUCIANO VIEIRA Attending Provider: LUCIANO VIEIRA Report Copy To: VENUS MENDEZ Signs & Symptoms: M48.02 Spinal stenosis, cervical region I10 History: Althea Comments: , STAT READ , STAT READ , , , Ordering Provider - LUCIANO VIEIRA MD , Exam: CERVICAL SPINE 2 OR 3 [facility] CERVICAL SPINE 2 OR 3 [facility] 07/06/2019 9:21 AM EDT SIGNS AND SYMPTOMS: M48.02 Spinal stenosis, cervical region I10; neck and bilateral arm pain most recent surgery check hardware; , STAT READ , STAT READ , , , Ordering Provider - LUCIANO VIEIRA MD , TECHNOLOGIST COMMENTS: neck and bilateral arm pain most recent surgery check hardware PROTOCOL: AP, Odontoid and Lateral views were obtained. Swimmers view was obtained. COMPARISON: April 06, 2019 FINDINGS: Bones: The cervical spine is visualized from the occiput to C6. Redemonstration of anterior cervical fusion of C5-C6 with intervertebral disc spacer. Additional screws and intervertebral disc spacer at C7, partially visualized. Disk spaces: Within normal limits. Intervertebral disc spacers as above. Facet joints: No significant hypertrophic facet changes. Alignment: Within normal limits. IMPRESSION: * Partial visualization of anterior cervical fusion hardware. Fractured inferior screw which was previously described to be protruding anteriorly on CT May 9 is not clearly visualized on lateral view due to overlying soft tissue. * Alignment appears appropriate. Approved by:Radha Ballard on 07/06/2019 11:31 AM EDT. I, Bernice Hoyt, have reviewed the images and report and concur with these findings. Electronically signed by:Bernice Hoyt. Transcribed by: [email or web address], User Resident: RADHA CHIN Electronically Signed by: BERNICE HOYT @ 07/06/2019 08:52 PM I personally read this/these film(s) with this resident Normal [facility] Comment on above: Order Comment: , STA T READ , STAT READ , , , Ordering Provider - LUCIANO VIEIRA MD , CERVICAL SPINE 2 OR 3 [facility] 04-06-2019 CERVICAL SPINE 2 OR 3 [facility] Department of Radiology [address] [place] [phone] Patient Name: MATTY GARCES : 1970 Sex: M Age: Race: White Pt. Location: Patient Status: O Ordered Date: 04/06/2019 7:10:00 AM Completed Date: 04/06/2019 07:28 AM Requesting Provider: LUCIANO VIEIRA Attending Provider: LUCIANO VIEIRA Report Copy To: VENUS MENDEZ Signs & Symptoms: CERVICAL DISC DISORDER, UNSPECIFIED CERVICAL REGION History: FAILED ALTHEA / ORDER SCANNED INTO RIS Comments: AP/LAT, ODONTOID PLEASE DO SWIMMER'S VIEW FOLLOW UP HARDWARE AND ALIGNMENT, S/P ACDF, RECENT FALLS Exam: CERVICAL SPINE 2 OR 3 [facility] CERVICAL SPINE 2 OR 3 S 04/06/2019 7:28 AM EDT SIGNS AND SYMPTOMS: CERVICAL DISC DISORDER, UNSPECIFIED CERVICAL REGION TECHNOLOGIST COMMENTS: surgery to cervical spine January 2019 follow up QUESTION FOR THE RADIOLOGIST: AP/LAT, ODONTOID PLEASE DO SWIMMER'S VIEW FOLLOW UP HARDWARE AND ALIGNMENT, S/P ACDF, RECENT FALLS PROTOCOLS: AP, Odontoid and Lateral views were obtained. Swimmers view was obtained. COMPARISON: February 17, 2019 FINDINGS: The bones are in anatomic alignment with evidence of anterior cervical spine hardware fusion with transcortical screws at C5-6 level with disc spacer in place and at C6-7 similar to prior study. There is preservation of the vertebral body heights and intervertebral disc spaces outside the fusion level. There is no fracture or destructive lesion. Lung apex appeared unremarkable. Open-mouth odontoid projection revealed satisfactory alignment at C1-2. IMPRESSION: Negative cervical spine. Stable lower anterior cervical spine hardware fusion from C5 to C7 similar to prior study. Electronically signed by:Bernice Hoyt. Transcribed by: [email or web address], User Resident: Electronically Signed by: BERNICE HOYT @ 04/06/2019 04:40 PM Normal [facility] Comment on above: Order Comment: AP/LA T, ODONTOID PLEASE DO SWIMMER'S VIEW FOLLOW UP HARDWARE AND ALIGNMENT, S/P ACDF, RECENT FALLS CERVICAL SPINE 2 OR 3 [facility] 02-17-2019 CERVICAL SPINE 2 OR 3 S [facility] Department of Radiology [address] [place] [phone] Patient Name: MATTY GARCES : 1970 Sex: M Age: Race: White Pt. Location: Patient Status: D Ordered Date: 02/17/2019 8:50:00 AM Completed Date: 02/17/2019 09:02 AM Requesting Provider: LUCIANO VIEIRA Attending Provider: LUCIANO VIEIRA Report Copy To: VENUS MENDEZ Signs & Symptoms: CERVICALGIA History: FAILED ALTHEA ORDER / SCANNED INTO RIS Comments: C-SPINE 2 OR 3 VIEW POSTOP, EVALUATION HARDWARE AN ALIGNMENT Exam: CERVICAL SPINE 2 OR 3 [facility] CERVICAL SPINE 2 OR 3 [facility] 02/17/2019 9:02 AM EDT SIGNS AND SYMPTOMS: CERVICALGIA; post op hardware evaluation surgery on 01/30/19; C-SPINE 2 OR 3 VIEW POSTOP, EVALUATION HARDWARE AN ALIGNMENT PROTOCOL: AP, Odontoid and Lateral views were obtained. COMPARISON: Intraoperative fluoroscopy January 30, 2019 and radiographs January 05, 2019 FINDINGS: Bones: C5-6 ACDF redemonstrated. Removal of C6-7 ACDF plate. C7 screw fragments remain in place. Disk spaces: Bony fusion across C5-6. Moderate disc height loss at C6-7. Upper cervical disc heights are well-maintained. Facet joints: Mild scattered hypertrophic facet changes appear unchanged. Alignment: Straightening of the cervical lordosis redemonstrated. IMPRESSION: * Unchanged appearance to C5-6 ACDF. No evidence of hardware complication. * Interval removal of C6-7 ACDF plate. Approved by:Florentino Tinajero on 02/17/2019 6:24 PM EDT. I, Bella King, have reviewed the images and report and concur with these findings. Electronically signed by:Bella King. Transcribed by: [email or web address], User Resident: EMILE TINAJERO Electronically Signed by: BELLA KING @ 02/20/2019 11:53 AM I personally read this/these film(s) with this resident Normal [facility] Comment on above: Order Comment: C-SPI NE 2 OR 3 VIEW POSTOP, EVALUATION HARDWARE AN ALIGNMENT BASIC METABOLIC PANELon 05-2 Calcium [Mass/Vol] 9.2 mg/dL Normal 8.6-10.3 [facility] Comment on above: Order Comment: No: D o not add to previous draw Performed By: #### 5 0103 #### [facility] [address] [place] [address], [place] Chloride [Moles/Vol] 101 mmol/L Normal 98-107 [facility] Comment on above: Order Comment: No: D o not add to previous draw Performed By: #### 5 0103 #### [facility] [address] [place] [address], [place] CO2 [Moles/Vol] 26 mmol/L Normal 21-31 [facility] Comment on above: Order Comment: No: D o not add to previous draw Performed By: #### 5 0103 #### [facility] [address] [place] [address], [place] Creatinine [Mass/Vol] 1.02 mg/dL Normal 0.70-1.30 [facility] Comment on above: Order Comment: No: D o not add to previous draw Performed By: #### 5 0103 #### [facility] [address] [place] [address], [place] GFR/1.73 sq M predicted among blacks MDRD (S/P/Bld) [Vol rate/Area] mL/min/{1.73_m2} Normal >60 [facility] Comment on above: Order Comment: No: D o not add to previous draw Performed By: #### 5 0103 #### [facility] [address] [place] [address], [facility] GFR/1.73 sq M predicted among non-blacks MDRD (S/P/Bld) [Vol rate/Area] mL/min/{1.73_m2} Normal >60 [facility] Comment on above: Order Comment: No: D o not add to previous draw Performed By: #### 5 0103 #### [facility] [address] [place] [address], [facility] Glucose [Mass/Vol] 124 mg/dL High 70-100 [facility] Comment on above: Order Comment: No: D o not add to previous draw Performed By: #### 5 0103 #### [facility] [address] [place] [address], [facility] Potassium [Moles/Vol] 3.9 mmol/L Normal 3.5-5.1 [facility] Comment on above: Order Comment: No: D o not add to previous draw Performed By: #### 5 0103 #### [facility] [address] [place] [address], [facility] Sodium [Moles/Vol] 137 mmol/L Normal 136-145 [facility] Comment on above: Order Comment: No: D o not add to previous draw Performed By: #### 5 0103 #### [facility] [address] [place] [address], [facility] Urea nitrogen [Mass/Vol] 15 mg/dL Normal 7-25 [facility] Comment on above: Order Comment: No: D o not add to previous draw Performed By: #### 5 0103 #### [facility] [address] [place] [address], [facility] CBC COMPLETE BLOOD COUNTon 0 - Erythrocyte distribution width (RBC) [Ratio] 13.9 % Normal 11.5-15.0 [facility] Comment on above: Order Comment: No: D o not add to previous draw Performed By: #### 5 0103 #### [facility] [address] [place] [address], [facility] Hematocrit (Bld) [Volume fraction] 50.0 % Normal 39.0-50.0 [facility] Comment on above: Order Comment: No: D o not add to previous draw Performed By: #### 5 3 #### [facility] [address] [place] [address], [facility] Hemoglobin (Bld) [Mass/Vol] 16.0 g/dL Normal 13.0-17.0 [facility] Comment on above: Order Comment: No: D o not add to previous draw Performed By: #### 5 3 #### [facility] [address] [place] [address], [facility] MCH (RBC) [Entitic mass] 27.5 pg Normal 27.0-33.0 [facility] Comment on above: Order Comment: No: D o not add to previous draw Performed By: #### 5 3 #### [facility] [address] [place] [address], [facility] MCHC (RBC) [Mass/Vol] 32.0 g/dL Normal 32.0-35.0 [facility] Comment on above: Order Comment: No: D o not add to previous draw Performed By: #### 5 102 #### [facility] [address] [place] [address], [facility] MCV (RBC) [Entitic vol] 85.9 fL Normal 82.0-98.0 [facility] Comment on above: Order Comment: No: D o not add to previous draw Performed By: #### 5 3 #### [facility] [address] [place] [address], [facility] Nucleated RBC/100 WBC (Bld) [Ratio] 0 % Normal 0-0 [facility] Comment on above: Order Comment: No: D o not add to previous draw Performed By: #### 5 3 #### [facility] [address] PLAT CNT 249 10*3/uL Normal 150-400 [facility] Comment on above: Order Comment: No: D o not add to previous draw Performed By: #### 5 0103 #### [facility] [address] [place] [address], [facility] RBC (Bld) [#/Vol] 5.82 10*6/uL High 4.20-5.70 [facility] Comment on above: Order Comment: No: D o not add to previous draw Performed By: #### 5 0103 #### [facility] [address] [facility] [place] [address], [facility] WBC (Bld) [#/Vol] 15.85 10*3/uL High 4.00-10.60 [facility] Comment on above: Order Comment: No: D o not add to previous draw Performed By: #### 5 0103 #### [facility] [address] Operative Reporton 9 Operative Report MR#: [id number] I [facility] Pt. Name: Matty Garces Room #: 5CD [id number] Discharge Date: Birthdate: 1970 OPERATIVE REPORT DATE OF SURGERY: 01/30/2019 SURGEON: Luciano Vieira M.D. 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 POSTOPERATIVE DIAGNOSIS: Failed instrumentation at C6-7 on the right. SURGICAL COORDINATOR: ADENIKE Lugo. ANESTHESIA: Endotracheal, Hogan. PROCEDURES: Redo of redo surgery at C6-7 with revision of screws, removal of plate and removal of bone graft and then placement of stand-alone cage. 1. SSEP. 2. MEP. 3. Fluoroscopy. 4. Microscope. 5. Meticulous dissection and exposure of the cervical spine at C6-7 from left approach that was previously operated at another institution. Dissection lasted more than 1 hour. 6. Exposure of the plate at C6-7. 7. Removal of the plate and screws. 8. Drilling of the bone graft that was impacted, which was unstable, and bilateral foraminotomies, C6-7. 9. Endplate decortication at C6-7. 10. Placement of stand-alone cage. The cage is 15 x 12 x 6. The putty Mastergraft is added to the cage and self-drilling screws x2. 11. Intraoperative x-ray confirmed the good position of plate and screws. 12. RADHA #13. 13. Intraoperative ultrasound for surgical purpose of finding the carotid. ESTIMATED BLOOD LOSS: Minimal. OPERATIVE INDICATION: The patient is 48, has had anterior cervical decompression and fusion at another institution at C5-6, required surgery at C6-7. His x-ray showed loosening of the screws and this required revision. PROCEDURE DETAILS: Under general endotracheal anesthesia in supine position, head in neutral position, the cervical region was cleaned and prepped in usual fashion. The previous incision on the left was reopened and meticulous dissection was carried out for more than 1 hour to reach the cervical spine. The carotid was palpated. After meticulous dissection and then using the Doppler, we were able to localize the carotid and work medially to it. The anterior aspect of the cervical spine was visualized. The screws were found protruding. Trimline retractors were placed and dissection was carried out again to further expose the plate which was removed together with the screws. The new cage was brought in as indicated and self drilling screws were inserted. The RADHA was placed and closure was carried out in usual fashion. Prior to that, foraminotomy and drilling of the endplate and the residual bone was carried out until complete removal of the bone graft and the foraminotomies were achieved. Closure was carried out in usual fashion. Electronically Signed by: Luciano Vieira M.D. 02/02/2019 04:44 P Luciano Vieira M.D. Date Dict: 01/30/2019/04:52 P/Luciano Vieira M.D. Date Trans: 01/31/2019 02:31 A/sasha [id number] cc: Venus Hoy, M.D. [address] [place] [address] Normal [facility] CERVICAL SPINE 2 OR 3 [facility] 01-30-2019 CERVICAL SPINE 2 OR 3 [facility] Department of Radiology [address] [place] [phone] Patient Name: MATTY GARCES : 1970 Sex: M Age: Race: White Pt. Location: Patient Status: O Ordered Date: 01/30/2019 7:05:00 AM Completed Date: 01/30/2019 04:12 PM Requesting Provider: LUCIANO VIEIRA Attending Provider: LUCIANO VIEIRA Report Copy To: Signs & Symptoms: C6-7 ACDF History: C6-7 ACDF Comments: C6-7 ACDF Exam: CERVICAL SPINE 2 OR 3 [facility] CERVICAL SPINE 2 OR 3 [facility] 01/30/2019 4:12 PM EDT SIGNS AND SYMPTOMS: C6-7 ACDF TECHNOLOGIST COMMENTS: Intra op ACDF C6-7 with , 30 sec of fluoro time used QUESTION FOR THE RADIOLOGIST: C6-7 ACDF PROTOCOLS: AP, Odontoid and Lateral views were obtained. COMPARISON: None FINDINGS: 5 images were obtained. Fluoroscopic time as utilized above. IMPRESSION: For documentation Electronically signed by:Justus Montano. Transcribed by: [email or web address], User Resident: Electronically Signed by: JUSTUS MONTANO @ 01/30/2019 04:18 PM Normal [facility] Comment on above: Order Comment: C6-7 ACDF POC GLUCOSE LABon 01-30-2019 Glucose [Mass/Vol] 106 mg/dL High 70-100 [facility] Comment on above: Performed By: #### 5 0103 #### [facility] 3000 [facility]. [address] *MRSA/MSSA DNA NASALon 01-23 *MRSA/MSSA DNA NASAL Clinical Report: (D ) Specimen: NASAL SWAB Collected: 01/23/2019 15:02 Status: Final Last Updated: 01/23/2019 20:14 MSSA DNA (Final) Methicillin Susceptible Staphylococcus aureus DNA Detected MRSA DNA (Final) No Methicillin Resistant Staphylococcus aureus DNA Detected Normal [facility] Comment on above: Performed By: #### 5 0103 #### [facility] 3000 [facility]. [address] APTTon 01-23-2019 aPTT Coag (Bld) [Time] 35.4 s High 25.0-35.0 [facility] Comment on above: Result Comment: ALL RESULTS MUST BE INTERPRETED WITH RESPECT TO BLOOD DRAWING ARTIFACT OR DILUTION ERROR OF ANTICOAGULANT AT THE TIME OF SAMPLING. THE APTT SHOULD NOT BE USED TO MONITOR UNFRACTIONATED HEPARIN THERAPY, THIS LABORATORY NO LONGER HAS AN ESTABLISHED THERAPEUTIC RANGE BASED ON THE APTT. IT IS RECOMMENDED THAT THE [facility] - HEPARIN ASSAY (ANTI-XA ACTIVITY) BE USED FOR THIS PURPOSE. Performed By: #### 5 7307, 11055 #### [facility] [address] [facility] [address] BASIC METABOLIC PANELon 01-11 Calcium [Mass/Vol] 9.5 mg/dL Normal 8.6-10.3 [facility] Comment on above: Performed By: #### 5 7307, [id number] #### [facility] [address] [facility] [place] [address], [facility] Chloride [Moles/Vol] 101 mmol/L Normal 98-107 [facility] Comment on above: Performed By: #### 5 73, 14839 #### [facility] [address] [place] [address], [place] CO2 [Moles/Vol] 29 mmol/L Normal 21-31 [facility] Comment on above: Performed By: #### 5 7307, [address] #### [facility] [address] [place] [address], [place] Creatinine [Mass/Vol] 1.08 mg/dL Normal 0.70-1.30 [facility] Comment on above: Performed By: #### 5 73, 42127 #### [facility] [address] [place] [address], [place] GFR/1.73 sq M predicted among blacks MDRD (S/P/Bld) [Vol rate/Area] mL/min/{1.73_m2} Normal >60 [facility] Comment on above: Performed By: #### 5 73, 95145 #### [facility] [address] [place] [address], [place] GFR/1.73 sq M predicted among non-blacks MDRD (S/P/Bld) [Vol rate/Area] mL/min/{1.73_m2} Normal >60 [facility] Comment on above: Performed By: #### 5 7307, 06420 #### [facility] [address] [place] [address], [place] Glucose [Mass/Vol] 87 mg/dL Normal 70-100 [facility] Comment on above: Performed By: #### 5 7307, 14021 #### [facility] [address] [place] [address], [place] Potassium [Moles/Vol] 4.0 mmol/L Normal 3.5-5.1 [facility] Comment on above: Performed By: #### 5 7307, 56189 #### [facility] [address] Sodium [Moles/Vol] 137 mmol/L Normal 136-145 [facility] Comment on above: Performed By: #### 5 7307, 12376 #### [facility] [address] Urea nitrogen [Mass/Vol] 12 mg/dL Normal 7-25 [facility] Comment on above: Performed By: #### 5 7307, 98984 #### [facility] [address] CBC W/DIFFon 01-23-2019 ABS BASOPHILS 0.1 10*3/uL Normal 0.0-0.2 The [facility] Comment on above: Performed By: #### 5 73Al, [address] #### [address] ABS IMM GRANS 0.0 10*3/uL Normal 0.0-0.2 The [facility] Comment on above: Performed By: #### 5 73Al, 14166 #### [facility] [address] ABS NEUTROPHILS 5.3 10*3/uL Normal 1.6-7.6 The [facility] Comment on above: Performed By: #### 5 7307, [address] #### [facility] [address] Basophils/100 WBC (Bld) 0.9 % Normal 0.0-1.0 [facility] Comment on above: Performed By: #### 5 73Al, [address] #### [facility] [facility] [address] Eosinophils (Bld) [#/Vol] 0.2 10*3/uL Normal 0.0-0.5 [facility] Comment on above: Performed By: #### 5 [id number], [id number] #### [facility] [address] [place] [address], [facility] Eosinophils/100 WBC (Bld) 2.3 % Normal 0.0-6.0 [facility] Comment on above: Performed By: #### 5 7306, 67576 #### [facility] [address] [place] [address], [facility] Erythrocyte distribution width (RBC) [Ratio] 13.8 % Normal 11.5-15.0 [facility] Comment on above: Performed By: #### 7306, 20359 #### [facility] [address] [place] [id number], [facility] Hematocrit (Bld) [Volume fraction] 49.6 % Normal 39.0-50.0 [facility] Comment on above: Performed By: #### 7306, 73674 #### [facility] [address] [place] [address], [facility] Hemoglobin (Bld) [Mass/Vol] 16.4 g/dL Normal 13.0-17.0 [facility] Comment on above: Performed By: #### 5 [id number], 86851 #### [facility] [address] [place] [address], [facility] IMMATURE GRANS 0.5 % Normal 0.0-1.0 The [facility] Comment on above: Performed By: #### 5 7306, 73237 #### [facility] [address] [place] [address], [facility] Lymphocytes (Bld) [#/Vol] 1.2 10*3/uL Normal 1.2-4.0 [facility] Comment on above: Performed By: #### 5 [id number], 90241 #### [facility] [address] [place] [address], [facility] Lymphocytes/100 WBC (Bld) 16.6 % Low 20.0-45.0 [facility] Comment on above: Performed By: #### 7306, 82631 #### [facility] [address] [place] [address], [facility] MCH (RBC) [Entitic mass] 27.8 pg Normal 27.0-33.0 [facility] Comment on above: Performed By: #### 7306, 05740 #### [facility] [address] [place] [address], [facility] MCHC (RBC) [Mass/Vol] 33.1 g/dL Normal 32.0-35.0 [facility] Comment on above: Performed By: #### 7306, 87677 #### [facility] [address] [facility] [place] [address], [facility] MCV (RBC) [Entitic vol] 84.2 fL Normal 82.0-98.0 [facility] Comment on above: Performed By: #### 7306, 34138 #### [facility] [address] [place] [address], [facility] Monocytes (Bld) [#/Vol] 0.7 10*3/uL Normal 0.1-1.0 [facility] Comment on above: Performed By: #### 5 7306, 22262 #### [facility] [address] [place] [address], [facility] MONOS 9.4 % Normal 5.0-12.0 [facility] Comment on above: Performed By: #### 5 7306, 81540 #### [facility] [address] [place] [id number], [facility] Neutrophils/100 WBC (Bld) 70.3 % Normal 40.0-72.0 [facility] Comment on above: Performed By: #### 5 7306, 20590 #### [facility] [address] [place] [id number], [facility] Nucleated RBC/100 WBC (Bld) [Ratio] 0 % Normal 0-0 The [facility] Comment on above: Performed By: #### 5 7307, 33700 #### [facility] [address] [place] [address], [facility] PLAT CNT 235 10*3/uL Normal 150-400 The [facility] Comment on above: Performed By: #### 5 7307, 78258 #### [facility] [address] [place] [address], [facility] RBC (Bld) [#/Vol] 5.89 10*6/uL High 4.20-5.70 [facility] Comment on above: Performed By: #### 5 7307, 13284 #### [facility] [address] [place] [address], [facility] WBC (Bld) [#/Vol] 7.48 10*3/uL Normal 4.00-10.60 [facility] Comment on above: Performed By: #### 5 7307, 76999 #### [facility] [address] PROTHROMBIN TIMEon 9 INR Coag (PPP) [Relative time] 1.12 {INR} Normal 0.91-1.16 [facility] Comment on above: Result Comment: ACCC P RECOMMENDED INR FOR WARFARIN THERAPY ------- ------- CONDITION INR PROPHYLAXIS OF VENOUS THROMBOSIS 2-3 (HIGH-RISK SURGERY) TREATMENT OF VENOUS THROMBOSIS 2-3 TREATMENT OF PULMONARY EMBOLISM 2-3 PREVENTION OF SYSTEMIC EMBOLISM: 2-3 ACUTE MYOCARDIAL INFARCTION TISSUE HEART VALVES VALVULAR HEART DISEASE ATRIAL FIBRILLATION RECURRENT SYSTEMIC EMBOLISM MECHANICAL HEART VALVE 2.5-3.5 FROM: ORAL ANTICOAGULANTS. MECHANISM OF ACTION, CLINICAL EFFECTIVENESS, AND OPTIMAL THERAPEUTIC RANGE. CHEST 1995;108:231S-246S. Performed By: #### 5 7307, 26916 #### [facility] [address] [facility] [address] PT Coag (PPP) [Time] 14.4 s Normal 12.3-14.8 [facility] Comment on above: Result Comment: ALL RESULTS MUST BE INTERPRETED WITH RESPECT TO BLOOD DRAWING ARTIFACT OR DILUTION ERROR OF ANTICOAGULANT AT THE TIME OF SAMPLING. Performed By: #### 5 7307, 79699 #### [facility] [address] [facility]. [address] TYPE AND SCREENon 01-23-2019 ABO INTERPRETATION A Normal [facility] Comment on above: Performed By: #### 5 7307, 15828 #### [facility] [address] [facility]. [address] RH INTERPRETATION Positive Normal The [facility] Comment on above: Performed By: #### 5 7307, 55723 #### [facility] [address] [facility] 3D CERVICAL SPINE WO CONT RASTon 01-12-2019 CT 3D CERVICAL SPINE WO CONTRAST [facility] Department of Radiology [address] [place] [id number] Patient Name: MATTY GARCES : 1970 Sex: M Age: Race: White Pt. Location: Patient Status: D Ordered Date: 01/10/2019 2:15:00 PM Completed Date: 01/12/2019 10:32 AM Requesting Provider: LUCIANO VIEIRA Attending Provider: LUCIANO VIEIRA Report Copy To: VENUS MENDEZ Signs & Symptoms: M48.02 Spinal stenosis, cervical region I10 History: Althea otto auth # [id number] 01/10/19-02/09/19 [id number] *er Comments: Exam: CT 3D CERVICAL SPINE WO CONTRAST CT 3D CERVICAL SPINE WO CONTRAST 01/12/2019 10:32 AM EDT SIGN AND SYMPTOMS: M48.02 Spinal stenosis, cervical region I10 TECHNOLOGIST COMMENTS: pt states he has a screw loose in his neck multiple surgeries on cspine QUESTION FOR RADIOLOGIST: PROTOCOL: Axial CT images of the spine were obtained without IV contrast. TECHNIQUE: Multi detector CT axial slices of the cervical spine are obtained from the occiput to the vertebral body without IV contrast. Volumetric acquisition sagittal, coronal, and 3-D reconstructions were performed and reviewed on a separate workstation. Appropriate CT dose lowering techniques were utilized. COMPARISON: None. FINDINGS: Reversal of cervical lordosis. This is most pronounced at C6 level. Anterior and interbody fusion C4-C7. No old studies available for comparison but some of the lower anterior screws protrude beyond the margin of the vertebral body by as much as 11 mm. This is at C7 on the right and I suspect that this is migrating anteriorly. It was not protruding plain film of August 30, 2018 Set alignment normal. Spinous processes intact. No prevertebral soft tissue swelling. Atlantodental distance is normal. Odontoid process and lateral masses of C1 and C2 are normal. No cervical spine fracture or malalignment. IMPRESSION: * Anterior and interbody fusion C4-C7 with some reversal of cervical lordosis at C6 * The right screw through C7 is protruding anteriorly by 10 to 11 mm. It was not protruding on previous radiograph of August 30, 2018. This screw is migrating anteriorly. It is in contact with the posterior esophagus * Acute fracture or malalignment * Disc spaces above and below the fusion are well preserved. * Not mentioned above body graft incorporation at the C6-C7 level is incomplete Electronically signed by:Ten Garland. Transcribed by: [email or web address], User Resident: Electronically Signed by: TEN GARLAND @ 01/13/2019 09:18 AM Normal [facility] CERVICAL SPINE 2 OR 3 [facility] 01-05-2019 CERVICAL SPINE 2 OR 3 [facility] Department of Radiology [address] [place] [id number] Patient Name: MATTY GARCES : 1970 Sex: M Age: Race: White Pt. Location: Patient Status: O Ordered Date: 01/05/2019 9:00:00 AM Completed Date: 01/05/2019 09:06 AM Requesting Provider: LUCIANO VIEIRA Attending Provider: LUCIANO VIEIRA Report Copy To: Signs & Symptoms: M48.02 Spinal stenosis, cervical region I10 History: [place] Comments: , , , Ordering Provider - LUCIANO VIEIRA MD , Exam: CERVICAL SPINE 2 OR 3 [facility] CERVICAL SPINE 2 OR 3 S 01/05/2019 9:06 AM EDT SIGNS AND SYMPTOMS: M48.02 Spinal stenosis, cervical region I10 TECHNOLOGIST COMMENTS: neck pain, left side worse, surgery this past august QUESTION FOR THE RADIOLOGIST: , , , Ordering Provider - LUCIANO VIEIRA MD , PROTOCOLS: AP, Odontoid and Lateral views were obtained. COMPARISON: 08/30/2018 FINDINGS: The dens is poorly visualized on odontoid view but the lateral masses are aligned. Preservation of the cervical lordosis. Postsurgical changes of anterior fusion at C5-C6 and C6-C7. Definite hardware complication. Stable positioning of hardware. Swimmer's view is attempted but the lower cervical vertebrae are obscured by overlying soft tissue. No acute fracture or malalignment. There is preservation of the vertebral body heights. IMPRESSION: * Unchanged positioning of anterior fusion at C5-C6 and C6-C7. * One of the screws at the C7 level likely on the right appears to be migrating anteriorly. Unchanged since prior study Approved by:Shelly Dela Cruz on 01/05/2019 11:53 AM EDT. I, Ten Garland, have reviewed the images and report and concur with these findings. Electronically signed by:Ten Garland. Transcribed by: [email or web address], User Resident: SHELLY DELA CRUZ Electronically Signed by: TEN GARLAND @ 01/05/2019 12:37 PM I personally read this/these film(s) with this resident Normal [facility] Comment on above: Order Comment: , , = ========= , Ordering Provider - LUCIANO VIEIRA MD , CERVICAL SPINE 2 OR 3 [facility] 08-30-2018 CERVICAL SPINE 2 OR 3 [facility] Department of Radiology [address] [place] [id number] Patient Name: MATTY GARCES : 1970 Sex: M Age: Race: White Pt. Location: Patient Status: O Ordered Date: 08/30/2018 9:35:00 AM Completed Date: 08/30/2018 09:43 AM Requesting Provider: LUCIANO VIEIRA Attending Provider: LUCIANO VIEIRA Report Copy To: VENUS MENDEZ Signs & Symptoms: M50.90 Cervical disc disorder, unsp, unspecified cervical region I10 History: [place] Comments: , POST OP XRAY AP/LAT ONLY , POST OP XRAY AP/LAT ONLY , , , Ordering Provider - LUCIANO VIEIRA MD , Exam: CERVICAL SPINE 2 OR 3 [facility] CERVICAL SPINE 2 OR 3 [facility] 08/30/2018 9:43 AM EST SIGNS AND SYMPTOMS: M50.90 Cervical disc disorder, unsp, unspecified cervical region I10 TECHNOLOGIST COMMENTS: pt states having neck surgery on 08-17-18 QUESTION FOR THE RADIOLOGIST: , POST OP XRAY AP/LAT ONLY , POST OP XRAY AP/LAT ONLY , , , Ordering Provider - LUCIANO VIEIRA MD , PROTOCOLS: AP, Odontoid and Lateral views were obtained. COMPARISON: Cervical spine August 17, 2018. FINDINGS: Cervical spine 4 views. Anterior fusion hardware at C5-C6 and C6-C7. No hardware complication. The vertebral body heights and intervertebral disc spaces are well-preserved. The atlantoaxial space is unremarkable. The posterior elements are intact. Prevertebral soft tissues are mildly prominent, likely postsurgical. IMPRESSION: 1. Anterior fusion hardware at C5-C6 and C6-C7. No hardware complication. 2. Likely postoperative edema of the prevertebral soft tissues. Approved by:Ryan Head on 08/30/2018 2:29 PM EST. I, Bella King, have reviewed the images and report and concur with these findings. Electronically signed by:Bella King. Transcribed by: [email or web address], User Resident: RYAN HEAD Electronically Signed by: BELLA KING @ 08/30/2018 05:45 PM I personally read this/these film(s) with this resident Normal [facility] Comment on above: Order Comment: , POS T OP XRAY AP/LAT ONLY , POST OP XRAY AP/LAT ONLY , , , Ordering Provider - LUCIANO VIEIRA MD , Operative Reporton 8 Operative Report MR#: [id number] I [facility] Pt. Name: Matty Garces Room #: [id number] Discharge Date: Birthdate: 1970 OPERATIVE REPORT DATE OF SURGERY: 08/17/2018 SURGEON: Luciano Vieira M.D. PREOPERATIVE DIAGNOSIS: Herniated cervical disk at C6-7. POSTOPERATIVE DIAGNOSIS: Herniated cervical disk at C6-7. SURGICAL COORDINATOR: ADENIKE Larios. ANESTHESIA: Endotracheal, Braida. PROCEDURE: Anterior cervical decompression and fusion at C6-7 with [employer] instrumentation and allograft. 1. a. Redo surgery at C6-7 on the left. b. Microscope. c. Fluoroscopy. d. SSEP. e. MEP. f. Meticulous dissection of the redo surgery with the same incision. g. Endplate decortication, C6-7. h. Osteophytectomy, C6-7. i. Diskectomy, C6-7. j. Foraminotomy, C6-7. k. Placement of allograft, size 8. l. Plate size 17 mm. m. RADHA. ESTIMATED BLOOD LOSS: Minimal. OPERATIVE INDICATION: The patient is a 47-year-old obese, hypertensive, multiple medical problems with recurrent disk below the level of his previous surgery at C5-6. Risks and benefits explained and consent obtained. DESCRIPTION OF PROCEDURE: Under general endotracheal anesthesia in supine position, head in neutral position, after fluoroscopy, the previous surgery plate was localized as well as the incision and through the same incision, which was at the lower 3rd of the cervical neck, a 5 to 6 mm incision was reopened. Dissection was carried out above and below the platysma anterior to the sternocleidomastoid. The omohyoid was lifted and divided. Then, dissection was further carried out until the carotid was palpated. There were adhesions that required meticulous dissection that lasted more than 1 hour. Careful dissection allowed us to retract medially the strap muscles and allow for the exposure of the anterior cervical spine because it was at the curved area of the cervical spine, it was extremely difficult to place the Trimline retractor and it turned to be hand held. The exposure confirmed by lateral spine x-ray confirmed the level of the disk at C6-7. Once this was completed, then the drilling of the foramina bilaterally at C6-7 was completed followed by endplate drilling and diskectomy at C6-7. Foraminotomy, osteophytectomy, and diskectomy were achieved. The sensory evoked potentials remained stable. The surgery was difficult, but it was achieved with no change in the SSEPs or MEPs. Once the decompression was complete, a bone graft allograft size 8 was placed. A small Zevo plate 17 mm plate, the screws were 15 mm Zevo screws. Copious irrigation was carried out. Initially, we tried to put a Prevail cage, but because of the slope of the curve, we could not place the screws appropriately. Hemostasis was perfected. Placement of plate and screws were perfect. Lateral spine x-ray confirmed good position. RADHA was placed. Closure was carried out in the usual fashion. The patient tolerated the procedure. Electronically Signed by: Luciano Vieira M.D. 08/22/2018 06:34 A Luciano Vieira M.D. Date Dict: 08/17/2018/12:31 P/Luciano Vieira M.D. Date Trans: 08/17/2018 11:25 P/sasha [id number] cc: Venus Mendez M.D. [address] [place] [address] [place] [facility] CERVICAL SPINE 2 OR 3 [facility] 08-17-2018 CERVICAL SPINE 2 OR 3 [facility] Department of Radiology [address] [place] [id number] Patient Name: MATTY GARCES : 1970 Sex: M Age: Race: White Pt. Location: Patient Status: I Ordered Date: 08/17/2018 8:30:00 AM Completed Date: 08/17/2018 11:49 AM Requesting Provider: LUCIANO VEIIRA Attending Provider: LUCIANO VIEIRA Report Copy To: Signs & Symptoms: C6-7 ACDF with History: C6-7 ACDF with Comments: C6-7 ACDF with Exam: CERVICAL SPINE 2 OR 3 [facility] CERVICAL SPINE 2 OR 3 [facility] 08/17/2018 11:49 AM EST SIGNS AND SYMPTOMS: C6-7 ACDF with TECHNOLOGIST COMMENTS: Intra op C6-7, ACDF with , 16 sec of fluoro time used QUESTION FOR THE RADIOLOGIST: C6-7 ACDF with PROTOCOL: Intraoperative fluoroscopy. FINDINGS: Intraoperative fluoroscopy demonstrates localization of the C6 vertebral body level with subsequent C6-7 ACDF. 16 seconds of fluoroscopy time utilized in total. 5 static fluoroscopic images documented. IMPRESSION: Intraoperative fluoroscopy for C6-7 ACDF. 16 seconds of fluoroscopy time utilized by Dr. Vieira. Approved by:Florentino Tinajero on 08/17/2018 11:57 AM EST. I, Bernice Hoyt, have reviewed the images and report and concur with these findings. Electronically signed by:Bernice Hoyt. Transcribed by: [email or web address], User Resident: EMILE TINAJERO Electronically Signed by: BERNICE HOYT @ 08/18/2018 01:06 PM I personally read this/these film(s) with this resident Normal [facility] Comment on above: Order Comment: C6-7 ACDF with POC GLUCOSE LABon 08-17-2018 Glucose [Mass/Vol] 113 mg/dL High 70-100 [facility] Comment on above: Performed By: #### 8 [id number] #### [facility] [address] [place] [address], [facility] RBC'S 2 UNITSon 08-17-2018 CROSSMATCH INTERP 1 COMP Normal [facility] Comment on above: Performed By: #### 8 [id number] #### [facility] [address] CROSSMATCH INTERP 2 COMP Normal [facility] Comment on above: Performed By: #### 8 6002 #### [facility] [address] [facility]. [address] PRODUCT CODE 1 E0336 Normal The [facility] Comment on above: Performed By: #### 8 6002 #### [facility] [address] [place] [address], [facility] PRODUCT CODE 2 E0336 Normal The [facility] Comment on above: Performed By: #### 8 6002 #### [facility] [address] [facility]. [address] PRODUCT STATUS 1 RE Normal The [facility] Comment on above: Result Comment: Resu lt changed by IF on 08/20/2018 07:48. The previous value was XM. Performed By: #### 8 6002 #### [facility] [address] [place] [address], [facility] PRODUCT STATUS 2 RE Normal [facility] Comment on above: Result Comment: Resu lt changed by IF on 08/20/2018 07:48. The previous value was XM. Performed By: #### 8 6002 #### [facility] [address] [place] [address], [facility] UNIT ABO 1 A Normal [facility] Comment on above: Performed By: #### 8 6002 #### [facility] [address] [place] [address], [facility] UNIT ABO 2 A Normal [facility] Comment on above: Performed By: #### 8 6002 #### [facility] [address] [place] [address], [facility] UNIT ID 1 [id number] Normal The [facility] Comment on above: Performed By: #### 8 6002 #### [facility] [address] [place] [address], [facility] UNIT ID 2 [id number] Normal The [facility] Comment on above: Performed By: #### 8 [id number] #### [facility] [address] [place] [address], [facility] UNIT RH 1 Positive Normal [facility] Comment on above: Performed By: #### 8 [id number] #### [facility] [address] [place] [address], [facility] UNIT RH 2 Positive Normal [facility] Comment on above: Performed By: #### 8 [id number] #### [facility] [address] *MRSA/MSSA CULTUREon 08-02- 018 *MRSA/MSSA CULTURE Clinical Report: (D) Specimen: NASAL SWAB Collected: 08/02/2018 12:37 Status: Final Last Updated: 08/03/2018 14:26 ISO (Final) No Methicillin Resistant Staphylococcus aureus Isolated (MRSA) ISO (Final) Methicillin Sensitive Staphylococcus aureus (MSSA) Isolated Normal [facility] Comment on above: Performed By: #### 3 1302 #### [facility] [address] APTTon 08-02-2018 aPTT Coag (Bld) [Time] 31.2 s Normal 25.0-35.0 [facility] Comment on above: Result Comment: ALL RESULTS MUST BE INTERPRETED WITH RESPECT TO BLOOD DRAWING ARTIFACT OR DILUTION ERROR OF ANTICOAGULANT AT THE TIME OF SAMPLING. THE APTT SHOULD NOT BE USED TO MONITOR UNFRACTIONATED HEPARIN THERAPY, THIS LABORATORY NO LONGER HAS AN ESTABLISHED THERAPEUTIC RANGE BASED ON THE APTT. IT IS RECOMMENDED THAT THE [facility] - HEPARIN ASSAY (ANTI-XA ACTIVITY) BE USED FOR THIS PURPOSE. Performed By: #### 5 [id number], [id number] #### [facility] [address] BASIC METABOLIC PANELon 07-15 Calcium [Mass/Vol] 9.4 mg/dL Normal 8.6-10.3 [facility] Comment on above: Performed By: #### 0 0071 #### [facility] [address] [place] [address], [facility] Chloride [Moles/Vol] 103 mmol/L Normal 98-107 [facility] Comment on above: Performed By: #### 0 0071 #### [facility] [address] [place] [address], [facility] CO2 [Moles/Vol] 29 mmol/L Normal 21-31 [facility] Comment on above: Performed By: #### 0 0071 #### [facility] [address] [place] [address], [facility] Creatinine [Mass/Vol] 1.06 mg/dL Normal 0.70-1.30 [facility] Comment on above: Performed By: #### 0 0071 #### [facility] [address] [place] [address], [facility] GFR/1.73 sq M predicted among blacks MDRD (S/P/Bld) [Vol rate/Area] mL/min/{1.73_m2} Normal >60 [facility] Comment on above: Performed By: #### 0 0071 #### [facility] [address] [place] [address], [facility] GFR/1.73 sq M predicted among non-blacks MDRD (S/P/Bld) [Vol rate/Area] mL/min/{1.73_m2} Normal >60 [facility] Comment on above: Performed By: #### 0 0071 #### [facility] [address] [place] [address], [facility] Glucose [Mass/Vol] 84 mg/dL Normal 70-100 [facility] Comment on above: Performed By: #### 0 0071 #### [facility] [address] [facility] [place] [address], [facility] Potassium [Moles/Vol] 4.0 mmol/L Normal 3.5-5.1 [facility] Comment on above: Performed By: #### 0 0071 #### [facility] [address] [facility] [place] [id number], [facility] [facility] Sodium [Moles/Vol] 140 mmol/L Normal 136-145 The [facility] Comment on above: Performed By: #### 0 0071 #### [facility] [address] [place] [address], [facility] Urea nitrogen [Mass/Vol] 20 mg/dL Normal 7-25 The [facility] Comment on above: Performed By: #### 0 0071 #### [facility] [address] [facility] [address], [facility] CBC W/DIFFon 08-02-2018 ABS BASOPHILS 0.1 10*3/uL Normal 0.0-0.2 [facility] Comment on above: Performed By: #### 5 0103 #### [facility] [address] [place] [address], [facility] ABS IMM GRANS 0.1 10*3/uL Normal 0.0-0.2 The [facility] Comment on above: Performed By: #### 5 0103 #### [facility] [address] [place] [address], [facility] ABS NEUTROPHILS 4.2 10*3/uL Normal 1.6-7.6 The [facility] Comment on above: Performed By: #### 0103 #### [facility] [address] [place] [address], [facility] Basophils/100 WBC (Bld) 1.3 % High 0.0-1.0 The [facility] Comment on above: Performed By: #### 010 #### [facility] [address] [place] [address], [facility] Eosinophils (Bld) [#/Vol] 0.1 10*3/uL Normal 0.0-0.5 The [facility] Comment on above: Performed By: #### 5 0103 #### [facility] [address] [place] [address], [facility] Eosinophils/100 WBC (Bld) 2.0 % Normal 0.0-6.0 The [facility] Comment on above: Performed By: #### 5 0103 #### [facility] [address] Erythrocyte distribution width (RBC) [Ratio] 13.6 % Normal 11.5-15.0 The [facility] Comment on above: Performed By: #### 5 3 #### [facility] [address] [place] [address], [facility] Hematocrit (Bld) [Volume fraction] 44.3 % Normal 39.0-50.0 The [facility] Comment on above: Performed By: #### 5 3 #### [facility] [address] Hemoglobin (Bld) [Mass/Vol] 15.1 g/dL Normal 13.0-17.0 The [facility] Comment on above: Performed By: #### 102 #### [facility] [address] [place] [address], [facility] IMMATURE GRANS 1.1 % High 0.0-1.0 The [facility] Comment on above: Performed By: #### 102 #### [facility] [address] Lymphocytes (Bld) [#/Vol] 1.2 10*3/uL Normal 1.2-4.0 The [facility] Comment on above: Performed By: #### 102 #### [facility] [address] Lymphocytes/100 WBC (Bld) 18.3 % Low 20.0-45.0 The [facility] Comment on above: Performed By: #### 102 #### [facility] [address] MCH (RBC) [Entitic mass] 29.0 pg Normal 27.0-33.0 The [facility] Comment on above: Performed By: #### 3 #### [facility] [address] MCHC (RBC) [Mass/Vol] 34.1 g/dL Normal 32.0-35.0 The [facility] Comment on above: Performed By: #### 102 #### [facility] [address] [place] [address], [facility] MCV (RBC) [Entitic vol] 85.0 fL Normal 82.0-98.0 The [facility] Comment on above: Performed By: #### 102 #### [facility] [address] [place] [address], [facility] Monocytes (Bld) [#/Vol] 0.7 10*3/uL Normal 0.1-1.0 [facility] Comment on above: Performed By: #### 5 102 #### [facility] [address] [place] [address], [facility] MONOS 11.1 % Normal 5.0-12.0 The [facility] Comment on above: Performed By: #### 5 102 #### [facility] [address] [place] [id number], [facility] Neutrophils/100 WBC (Bld) 66.2 % Normal 40.0-72.0 The [facility] Comment on above: Performed By: #### 102 #### [facility] [address] [place] [address], [facility] Nucleated RBC/100 WBC (Bld) [Ratio] 0 % Normal 0-0 The [facility] Comment on above: Performed By: #### 102 #### [facility] [address] [facility] [address], [facility] PLAT CNT 179 10*3/uL Normal 150-400 The [facility] Comment on above: Performed By: #### 102 #### [facility] [address] [place] [address], [facility] RBC (Bld) [#/Vol] 5.21 10*6/uL Normal 4.20-5.70 [facility] Comment on above: Performed By: #### 5 102 #### [facility] [address] [place] [address], [facility] WBC (Bld) [#/Vol] 6.39 10*3/uL Normal 4.00-10.60 [facility] Comment on above: Performed By: #### 3 #### [facility] CERVICAL SPINE 4 OR 5 VIEWSo n 08-02-2018 CERVICAL SPINE 4 OR 5 VIEWS [facility] Department of Radiology [address] [place] [id number] Patient Name: MATTY GARCES : 1970 Sex: M Age: Race: White Pt. Location: Patient Status: D Ordered Date: 08/02/2018 1:05:00 PM Completed Date: 08/02/2018 01:29 PM Requesting Provider: LUCIANO VIEIRA Attending Provider: LUCIANO VIEIRA Report Copy To: VENUS MENDEZ Signs & Symptoms: Z01.89 Encounter for other specified special examinations I10 History: [place] Comments: , PREOP XRAY AP/LAT \EANDE\ FLEX/EX , PREOP XRAY AP/LAT \EANDE\ FLEX/EX , , , Ordering Provider - LUCIANO VIEIRA MD , Exam: CERVICAL SPINE 4 OR 5 VIEWS CERVICAL SPINE 4 OR 5 VIEWS 08/02/2018 1:29 PM EST SIGNS AND SYMPTOMS: Z01.89 Encounter for other specified special examinations I10; pre op for c-spine surgery history of c-spine fusion x 5 years ago; , PREOP XRAY AP/LAT \EANDE\ FLEX/EX , PREOP XRAY AP/LAT \EANDE\ FLEX/EX PROTOCOL: AP,Odontoid, Lateral, Flexion and Extension views. COMPARISON: May 12, 2018. FINDINGS: Bones: Status post C5-6 ACDF. Disk spaces: Mild disc height loss at C4-5 and C6-7. Facet joints: No significant hypertrophic facet changes. Alignment: Straightening of the cervical lordosis similar to prior study. No pathologic motion on flexion or extension. IMPRESSION: * Status post C5-6 ACDF. No apparent change in alignment or hardware complication. Approved by:Florentino Tinajero on 08/02/2018 5:59 PM EST. I, Bella King, have reviewed the images and report and concur with these findings. Electronically signed by:Bella King. Transcribed by: [id number], User Resident: EMILE TINAJERO Electronically Signed by: BELLA KING @ 08/03/2018 11:58 AM I personally read this/these film(s) with this resident Normal The [facility] Comment on above: Order Comment: , PRE OP XRAY AP/LAT \EANDE\ FLEX/EX , PREOP XRAY AP/LAT \EANDE\ FLEX/EX , , , Ordering Provider - LUCIANO VIEIRA MD , PROTHROMBIN TIMEon 8 INR Coag (PPP) [Relative time] 1.15 {INR} Normal 0.91-1.16 The [facility] Comment on above: Result Comment: ACCC P RECOMMENDED INR FOR WARFARIN THERAPY ------- ------- CONDITION INR PROPHYLAXIS OF VENOUS THROMBOSIS 2-3 (HIGH-RISK SURGERY) TREATMENT OF VENOUS THROMBOSIS 2-3 TREATMENT OF PULMONARY EMBOLISM 2-3 PREVENTION OF SYSTEMIC EMBOLISM: 2-3 ACUTE MYOCARDIAL INFARCTION TISSUE HEART VALVES VALVULAR HEART DISEASE ATRIAL FIBRILLATION RECURRENT SYSTEMIC EMBOLISM MECHANICAL HEART VALVE 2.5-3.5 FROM: ORAL ANTICOAGULANTS. MECHANISM OF ACTION, CLINICAL EFFECTIVENESS, AND OPTIMAL THERAPEUTIC RANGE. CHEST 1995;108:231S-246S. Performed By: #### 5 7307, [id number] #### [facility] [address] [place] [address], [facility] PT Coag (PPP) [Time] 14.7 s Normal 12.3-14.8 The [facility] Comment on above: Result Comment: ALL RESULTS MUST BE INTERPRETED WITH RESPECT TO BLOOD DRAWING ARTIFACT OR DILUTION ERROR OF ANTICOAGULANT AT THE TIME OF SAMPLING. Performed By: #### 5 7307, [id number] #### [facility] [address] [place] [address], [facility] TYPE AND SCREENon 08-02-2018 ABO INTERPRETATION A Normal The [facility] Comment on above: Order Comment: 2 uni ts 2 units 2 units 2 units 2 units Performed By: #### 6 2586 #### [facility] [address] [place] [address], [facility] RH INTERPRETATION Positive Normal The [facility] Comment on above: Order Comment: 2 uni ts 2 units 2 units 2 units 2 units Performed By: #### 6 2586 #### [facility] [address] [place] [address], [facility] URINALYSIS REFLEXon 08-02-20 18 Appearance (U) CLEAR Normal CLEAR The [facility] Comment on above: Performed By: #### 3 0965 #### [facility] [address] [place] [address], [facility] Bilirubin [Mass/Vol] Negative Normal NEGATIVE The [facility] Comment on above: Performed By: #### 3 0965 #### [facility] [address] [place] [address], [facility] BLOOD Negative Normal NEGATIVE The [facility] Comment on above: Performed By: #### 3 0965 #### [facility] [address] [place] [address], [facility] Color (U) YELLOW Normal YELLOW The [facility] Comment on above: Performed By: #### 3 0965 #### [facility] [address] [facility] [place] [address], [facility] Glucose [Mass/Vol] 150 mg/dL Abnormal NEGATIVE [facility] Comment on above: Performed By: #### 3 0965 #### [facility] [address] [place] [address], [facility] KETONE Negative Normal NEGATIVE The [facility] Comment on above: Performed By: #### 3 0965 #### [facility] [address] [place] [address], [facility] [place] Negative Normal NEGATIVE The [facility] Comment on above: Performed By: #### 3 0965 #### [facility] [address] MICRO NOT DONE negative chemical reactions unless requested in original order Normal The [facility] Comment on above: Performed By: #### 3 0965 #### [facility] [address] [place] [address], [facility] Nitrite Ql (U) Negative Normal NEGATIVE The [facility] Comment on above: Performed By: #### 3 0965 #### [facility] [address] [place] [address], [facility] pH (Bld) 5.0 Normal 5.0-8.0 The [facility] Comment on above: Performed By: #### 3 0965 #### [facility] [address] [place] [address], [facility] Protein (U) [Mass/Vol] Negative Normal NEGATIVE The [facility] Comment on above: Performed By: #### 3 0965 #### [facility] [address] [place] [address], [facility] SPEC GRAV 1.024 High 1.015-1.020 The [facility] Comment on above: Performed By: #### 3 0965 #### [place] [address] [address] Vital Signs Date Time Vital Sign Value Performing Clinician Molly bunn 02-25-2022 10:30-0400 Blood Pressure Location Viola Lue [facility] 02-25-2022 10:30-0400 Diastolic blood pressure 107 mm[Hg] Viola Lue [facility] 02-25-2022 10:30-0400 Heart rate 74 /min Viola Lue [facility] 02-25-2022 10:30-0400 Respiratory rate 16 /min Viola Lue [facility] 02-25-2022 10:30-0400 Systolic blood pressure 157 mm[Hg] Viola Lue [facility] Encounters Encounter Date Encounter Type Care Provider Facility Start: 08-30-2023 End: 08-31-2023 ambulatory Diallo Beauchamp MD [facility] Start: 07-12-2023 End: 07-13-2023 ambulatory Diallo Beauchamp MD [facility] Start: 06-14-2023 End: 06-15-2023 ambulatory Diallo Beauchamp MD [facility] Start: 03-11-2023 End: 03-11-2023 ambulatory Christiano Geiger Facility:[facility] Start: 12-06-2022 End: 12-06-[address] VENUS MENDEZ . Facility:[facility] Start: 12-05-2022 Encounter for genera l adult medical examination without abnormal findings DR VENUS MENDEZ . [facility] Start: 12-01-2022 End: 12-02-[address] VENUS MENDEZ . Facility:[facility] Start: 12-01-2022 End: 12-02-2022 Encounter for general adult medical examination without abnormal findings DR VENUS MENDEZ . Facility:[facility] Start: 07-10-2022 End: 07-11-[address] VENUS MENDEZ . Facility:[facility] Start: 03-26-2022 End: 03-26-[address] VENUS MENDEZ . Facility:[facility] Start: 03-13-2022 End: 03-14-[address] VENUS MENDEZ . Facility:[facility] Start: 02-25-2022 End: 02-25-2022 Patient encounter procedure Viola Grullon [facility] Start: 01-04-2022 End: 01-05-[address] VENUS MENDEZ . Facility: Start: 01-30-2019 End: 02-01-2019 Evaluation and management of inpatient PROVIDER UNKNOWN Facility:[facility] Start: 08-17-2018 End: 08-18-2018 Patient encounter procedure PROVIDER UNKNOWN Facility:[facility] Procedures Date Procedure Procedure Detail Performing Clinician Start: 12-01-[address] [place] MENDEZ . Comment on above: Performed By: #### [facility] #### [facility] [address] [place] [address] [address] Shabnam Rae Start: 01-30-2019 FUSION CERV JT W INT BD FUS DEV, ANT APPR A COL, OPEN [facility] Start: 01-30-2019 REMOVAL OF INT FIX F ROM CERVCAL VERTEBRA, OPEN APPROACH [facility] Start: 01-23-2019 Antibody screen PROVIDE R UNKNOWN Comment on above: Performed By: #### 5 7307, [id number] #### [facility] [address] Start: 08-17-2018 ANESTH SPINE CORD SURGERY SANDRA BILL Start: 08-17-2018 INSERT SPINE FIXATIO N DEVICE [facility] Start: 08-17-2018 NECK SPINE FUSE\T\RE MOV BEL C2 [facility] Start: 08-17-2018 SP BONE ALGRFT STRUC T ADD-ON [facility] Start: 08-02-2018 Antibody screen PROVIDE R UNKNOWN Comment on above: Order Comment: 2 uni ts 2 units 2 units 2 units 2 units Performed By: #### 6 2586 #### [facility] [address] Colonoscopy Viola Thrasherfrance Hemorrhoids (disorder) Viola Thrasherfrance Hernia of abdominal cavity (disorder) Viola Grullon Tonsillectomy Viola Grullon Payers Date Payer Category Payer Self-pay 2022 Medicaid [id number] 2022 Unknown 1970 Unknown [id number] 2.16.8 [id number] 1970 Unknown [id number] 2.16.8 [id number] 1970 Unknown [id number] 2.16.84 [id number] 1970 Unknown [id number] 2.16.84 [id number] 1970 Unknown [id number] 2.16.84 [id number] 1970 Unknown [id number] 2.16.84 [id number] 1970 Unknown [id number] 2.16.84 [id number] 1970 Unknown [id number] 2.16.84 [id number] 1970 Unknown [id number] 2.16. [id number] 1970 Unknown [id number] 2.16. [id number] 1970 Unknown [id number] 2.16. [id number] 1959 Unknown [id number] Unknown [id number] Unknown [id number] 2.16.8 [id number] Social History Date Type Detail Facility Tobacco smoking status No Smoking Status Entered [facility] Sex Assigned At Male [facility] Functional Status Date Assessment Result Facility 02-25-2022 Functional Status N/A [facility] Progress note 06-09-2023 Note Date & Type Note Facility 06-09-2023 Note [facility] Continue GDMT- Diuretic therapy Monitor daily weights, I&O, fluid restriction 1.5-2L/day, renal function and electrolytes- [facility] Clinical Note 03-26-2022 Note Date & Type Note Facility 03-26-2022 Note PROCEDURE: XR FOOT L T MIN 3 VIEWS COMPARISON: 06/04/2020 HISTORY: Pain in lower limb FINDINGS: BONES:No acute fracture or dislocation. Postsurgical changes with remote resection head of the first proximal phalanx. Degenerative changes most significant at the first metatarsal-phalangeal joint. Moderate enthesopathic spurring of the calcaneus at the Achilles insertion SOFT TISSUES:The marker indicates the puncture wound at the third metatarsal phalangeal joint. No radiopaque foreign body EFFUSION:None visible. OTHER: Negative. IMPRESSION: No acute abnormality Electronically authenticated by: ALVINA CAICEDO Date: 2022-03-26 10:47 The [facility] Discharge instructions 02-25-2022 Note Date & Type Note Facility 02-25-2022 Hospital Discharg e instructions Patient Education 02/25/2022 11:09:43 Hydrocele, Adult Hydrocele, Adult A hydrocele is a collection of fluid in the loose pouch of skin that holds the testicles (scrotum). This may happen because: The amount of fluid produced in the scrotum is not absorbed by the rest of the body. Fluid from the abdomen fills the scrotum. Normally, the testicles develop in the abdomen then move (drop) into to the scrotum before . The tube that the testicles travel through usually closes after the testicles drop. If the tube does not close, fluid from the abdomen can fill the scrotum. This is less common in adults. What are the causes? The cause of a hydrocele in adults is usually not known. However, it may be caused by: An injury to the scrotum. An infection (epididymitis). Decreased blood flow to the scrotum. Twisting of a testicle (testicular torsion). A defect. A tumor or cancer of the testicle. What are the signs or symptoms? A hydrocele feels like a water-filled balloon. It may also feel heavy. Other symptoms include: Swelling of the scrotum. The swelling may decrease when you lie down. You may also notice more swelling at night than in the morning. Swelling of the groin. Mild discomfort in the scrotum. Pain. This can develop if the hydrocele was caused by infection or twisting. The larger the hydrocele, the more likely you are to have pain. How is this diagnosed? This condition may be diagnosed based on: Physical exam. Medical history. You may also have other tests, including: Imaging tests, such as ultrasound. Blood or urine tests. How is this treated? Most hydroceles go away on their own. If you have no discomfort or pain, your health care provider may suggest close monitoring of your condition (called watch and wait or watchful waiting) until the condition goes away or symptoms develop. If treatment is needed, it may include: Treating an underlying condition. This may include using an antibiotic medicine to treat an infection. Surgery to stop fluid from collecting in the scrotum. Surgery to drain the fluid. Options include: ?Needle aspiration. A needle is used to drain fluid. However, the fluid buildup will come back quickly. ?Hydrocelectomy. For this procedure, an incision is made in the scrotum to remove the fluid sac. Follow these instructions at home: Watch the hydrocele for any changes. Take [id number] and prescription medicines only as told by your health care provider. If you were prescribed an antibiotic medicine, use it as told by your health care provider. Do not stop taking the antibiotic even if you start to feel better. Keep all follow-up visits as told by your health care provider. This is important. Contact a health care provider if: You notice any changes in the hydrocele. The swelling in your scrotum or groin gets worse. The hydrocele becomes red, firm, painful, or tender to the touch. You have a fever. Get help right away if you: Develop a lot of pain, or your pain becomes worse. Summary A hydrocele is a collection of fluid in the loose pouch of skin that holds the testicles (scrotum). Hydroceles can cause swelling, discomfort, and sometimes pain. In adults, the cause of a hydrocele usually is not known. However, it is sometimes caused by an infection or a rotation and twisting of the scrotum. Treatment is usually not needed. Hydroceles often go away on their own. If a hydrocele causes pain, treatment may be given to ease the pain. This information is not intended to replace advice given to you by your health care provider. Make sure you discuss any questions you have with your health care provider. Document Released: 02/17/2011 Document Revised: 09/10/2018 Document Reviewed: 09/10/2018 [employer] Patient Education 2020 [employer]. Follow Up Care 01/28/2022 10:36:35 With:Mitchel DELGADO, [place] Gregorio, U[place] Address: When: Unknown [facility] Evaluation + Plan note Note Date & Type Note Facility Evaluation + Plan note No data available for this section [facility] Progress note Note Date & Type Note Facility Progress note No data available for this section [facility] Summary Purpose Family History No Family History Records FoundNo Family History Records FoundNo Family History Records FoundNo Family History Records FoundNo Family History Records FoundNo Family History Records Found Advance Directives No Advanced Directives Records FoundNo Advanced Directives Records FoundNo Advanced Directives Records FoundNo Advanced Directives Records FoundNo Advanced Directives Records FoundNo Advanced Directives Records Found Hospital Course Note MR#: [id number] [facility] Pt. Name: Matty Garces Admitted: 01/30/2019 Discharged: 02/01/2019 Date of : 1970 Physician: Luciano Vieira M.D. DISCHARGE SUMMARY PRINCIPAL DIAGNOSIS: Cervical hardware complication. SECONDARY DIAGNOSIS: Cervical radiculopathy. SUMMARY OF HOSPITAL COURSE: The patient was admitted on January 30, 2019, for a planned revision of anterior cervical diskectomy and fusion C6-C7 with cage placement. He tolerated the procedure well. Vital signs and laboratory studies were stable postoperatively. Pain is controlled with oral pain medications. CONDITION AT DISCHARGE: Good. DISPOSITION: The patient is being discharged to home. DISCHARGE INSTRUCTIONS: 1. The patient is to follow a low-salt, low-cholesterol diet. 2. May shower. Do not get the dressing or incision wet. No tub baths or immersion of the incision. 3. Wear the neck collar at all times. 4. Return to work when released by Neurosurgery. 5. No driving while on pain medicatio (more content not included)... Additional Source Comments (unrecognized sect ion and content) No Status Records FoundNo Status Records FoundNo Status Records FoundNo Status Records FoundNo Status Records FoundNo Status Records Found INFORMATION SOURCE (unrecogn ized section and content) DATE CREATED AUTHOR 07/19/2019 [facility] DATE CREATED AUTHOR AUTHOR'S ORGANIZ ATION 02/27/2022 [facility] DATE CREATED AUTHOR AUTHOR'S ORGANIZ ATION 12/08/2022 [facility] DATE CREATED AUTHOR AUTHOR'S ORGANIZ ATION 03/17/2023 [facility] DATE CREATED AUTHOR AUTHOR'S ORGANIZ ATION 06/17/2023 [facility] DATE CREATED AUTHOR AUTHOR'S ORGANIZ ATION 09/03/2023 [facility] Care Team (unrecognized sect ion and content) Personnel Name: Venus Mendez MD Address: [address] [place] [address] FOR RECORDS PERTAINING TO PATIENTS WHO ARE OR HAVE BEEN ENROLLED IN A CHEMICAL DEPENDENCY/SUBSTANCEABUSE PROGRAM, SOME INFORMATION MAY BE OMITTED. This clinical summary was aggregated from multiple sources. Caution should be exercised in using it in the provision of clinical care. This summary normalizes information from multiple sources, and as a consequence, information in this document may materially change the coding, format and clinical context of patient data. In addition, data may be omitted in some cases. CLINICAL DECISIONS SHOULD BE BASED ON THE PRIMARY CLINICAL RECORDS. [facility]. provides no warranty or guarantee of the accuracy or completeness of information in this document.
--- NOTE | 2023-09-04 07:21 | ED_ITS ---
HPI - Fall General Chief Complaint: Fall Stated Complaint: fall/ general weakness Time Seen by Provider: 09/04/23 07:13 Source: patient Mode of arrival: walk-in Limitations: physical limitation History of Present Illness HPI Narrative: 52-year-old male presents for bilateral ankle pain. He has narcolepsy and he fell again today. This is a frequent occurrence for him. He complains of both ankles hurting but more on the right. He has abrasions on both of his knees as well and he states he falls frequently and he had fallen recently and had some scabs knee broke them open. No heavy bleeding. No hip pain. The pain is moderate to severe. Related Data Home Medications Medication Instructions Recorded Confirmed carvedilol 25 mg tablet 25 mg PO BID 06/14/23 09/04/23 citalopram 20 mg tablet 20 mg PO DAILY 06/14/23 09/04/23 clonazepam 0.5 mg tablet 0.5 mg PO DAILY 06/14/23 09/04/23 doxazosin 8 mg tablet 8 mg PO DAILY 06/14/23 09/04/23 doxepin 10 mg capsule 10 mg PO DAILY PRN itching 06/14/23 09/04/23 furosemide 20 mg tablet 20 mg PO DAILY 06/14/23 09/04/23 gabapentin 600 mg tablet 600 mg PO BID 06/14/23 09/04/23 glycopyrrolate 1 mg tablet 1 mg PO BID 06/14/23 09/04/23 hydroxyzine pamoate 25 mg capsule 25 mg PO QPM 06/14/23 09/04/23 meclizine 25 mg tablet 25 mg PO DAILY 06/14/23 09/04/23 pantoprazole 40 mg tablet,delayed 40 mg PO DAILY 06/14/23 09/04/23 release sildenafil 25 mg tablet 25 mg PO DAILY 06/14/23 09/04/23 simvastatin 20 mg tablet 20 mg PO DAILY 06/14/23 09/04/23 testosterone cypionate 100 mg/mL 100 mg subcut .EVERY 2 WEEKS 06/14/23 09/04/23 intramuscular oil tizanidine 4 mg capsule 4 mg PO .EVERY NIGHT 06/14/23 09/04/23 aspirin 81 mg tablet,delayed 81 mg PO DAILY 09/04/23 09/04/23 release (Miguel Angel Low Dose Aspirin) modafinil 200 mg tablet 200 mg PO DAILY 09/04/23 09/04/23 potassium chloride 10 mEq 10 meq PO Q12H 09/04/23 09/04/23 tablet,extended release Previous Rx's Medication Instructions Recorded etodolac 400 mg tablet (Lodine) 400 mg PO Q12H PRN pain #30 tabs 08/11/23 ibuprofen 800 mg tablet 800 mg PO Q8H PRN pain #20 tabs 09/04/23 Allergies Allergy/AdvReac Type Severity Reaction Status Date / Time No Known Drug Allergies Allergy Verified 08/30/23 11:41 Review of Systems ROS Narrative A ten point review of systems is negative except as noted above. [facility] Medical History (Updated 09/04/23 @ 08:49 by Andrzej Mandujano MD) Narcolepsy ?G47.419 - 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) Anxiety ?F41.9 - Anxiety disorder, unspecified (ICD-10) Upper back pain ?M54.9 - Dorsalgia, unspecified (ICD-10) Low back pain ?M54.50 - Low back pain, unspecified (ICD-10) TMJ (dislocation of temporomandibular joint) ?S03.00XA - Dislocation of jaw, unspecified side, initial encounter (ICD-10) Obesity ?E66.9 - Obesity, unspecified (ICD-10) Sleep apnea ?G47.30 - Sleep apnea, unspecified (ICD-10) Hypertension ?I10 - Essential (primary) hypertension (ICD-10) Surgical History H/O inguinal hernia repair ?Z98.890 - Other specified postprocedural states (ICD-10) ?Z87.19 - Personal history of other diseases of the digestive system (ICD-10) H/O repair of rotator cuff ?Z98.890 - Other specified postprocedural states (ICD-10) History of fusion of cervical spine ?Z98.1 - Arthrodesis status (ICD-10) History of uvulopalatopharyngoplasty ?Z98.890 - Other specified postprocedural states (ICD-10) Exam Narrative Exam Narrative: Nurses note and vital signs reviewed and patient is not hypoxic. General: The patient appears in no apparent distress. the patient has difficulty sitting still. Skin: Warm, dry, no pallor noted. There is no rash noted. Head: Normocephalic, atraumatic Eye: Normal conjunctiva, no drainage Ears, Nose, Mouth, and Throat: oral mucosa is moist. Nares patent. Cardiovascular: Regular Rate and Rhythm Respiratory: Patient is in no distress, no accessory muscle use, lungs are clear to auscultation, no wheezing, rales or rhonchi Back: non-tender GI: soft and nontender Musculoskeletal: hips and knees have good range of motion. Superficial abrasions present on both knees. Both ankles seem to be tender and he has chronic swelling in his feet and his ankles. Bilateral feet do not seem to be tender on palpation. Neurological: A&O x4, normal speech Psychiatric: Cooperative Constitutional Vital Signs, click to edit/add: Last Vital Signs Temp 97.8 F 09/04/23 07:13 Pulse 87 09/04/23 08:43 Resp 18 09/04/23 08:43 BP 139/77 09/04/23 08:43 Pulse Ox 98 09/04/23 08:43 Course Vital Signs Vital signs: Vital Signs Temperature 97.8 F 09/04/23 07:13 Pulse Rate 76 09/04/23 07:13 Respiratory Rate 20 09/04/23 07:13 Blood Pressure 140/78 09/04/23 07:13 Pulse Oximetry 96 09/04/23 07:13 Temperature 97.8 F 09/04/23 07:13 Pulse Rate 87 09/04/23 08:43 Respiratory Rate 18 09/04/23 08:43 Blood Pressure 139/77 09/04/23 08:43 Pulse Oximetry 98 09/04/23 08:43 MDM - Fall MDM Narrative Medical decision making narrative: x-rays per radiologist are negative for fractures. Rambo wrap applied to each ankle and appplication checked by me and found be appropriate, he iss neurovascularly intact. Treatment diagnosis and follow-up were discussed with the patient. Differential Diagnosis Differential diagnosis: Likely other (ankle sprain, ankle fracture) Imaging Data bilateral ankles: Radiologist's impression: Procedure: XR ankle UBALDO min 3V HISTORY: Status post fall. Pain along the medial and lateral aspect of the right ankle and pain along the lateral aspect of the left ankle. XR ankle UBALDO min 3V: 09/04/2023 7:40 AM EST COMPARISON: Radiographs left foot 03/26/2022 and radiograph right ankle 08/11/2023. FINDINGS: Right ankle: 3 views of the right ankle were obtained. There has been development of a large amount soft tissue swelling along the lateral aspect of the lateral malleolus and there is a small amount of soft tissue swelling medially. No acute fracture or dislocation is seen. A small well-corticated ossific focus is again seen along the inferior aspect of the lateral malleolus. There are mild to moderate degenerative changes again seen to primarily involving the anterior aspect of the tibiotalar joint with joint space narrowing and marginal osteophytes. An enthesophyte is again seen at the insertion of the Achilles tendon on the calcaneus. There again appear to be degenerative changes of the distal tibiofibular syndesmosis heterotopic ossification in this region. There is a linear 2.5 cm long radiopaque density projecting over the right midfoot on the frontal and oblique views, but this is not seen on the lateral view and is therefore external to the patient. Left ankle: 3 views of the left ankle were obtained. There is moderate soft tissue swelling surrounding the ankle and this is more prominent laterally. No acute fracture or dislocation is seen. There is a well-corticated 3 mm ossific focus along the inferior aspect of the lateral malleolus compatible to sequela of remote trauma. There appear to be mild to moderate degenerative changes of the anterior aspect of the tibiotalar joint with subchondral cystic change and marginal osteophyte formation of the anterior tibial plafond. There is an enthesophyte at the insertion of the Achilles tendon on the calcaneus. There is soft tissue swelling along the dorsum of the midfoot. IMPRESSION: 1. Soft tissue swelling of the right ankle without evidence of acute fracture or dislocation. 2. Soft tissue swelling of the left ankle and dorsum of the left midfoot without evidence of acute fracture or dislocation. 3. 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 Electronically authenticated by: VENUS NICOLE Date: 09/04/2023 08:23 Discharge Plan Discharge Chief Complaint: Fall Clinical Impression: Ankle sprain Patient Disposition: Home, Self-Care Time of Disposition Decision: 08:49 Condition: Good Prescriptions / Home Meds: New ibuprofen 800 mg tablet 800 mg PO Q8H PRN (Reason: pain) Qty: 20 0RF No Action potassium chloride 10 mEq tablet extended release 10 meq PO Q12H aspirin [Miguel Angel Low Dose Aspirin] 81 mg tablet,delayed release (DR/EC) 81 mg PO DAILY modafinil 200 mg tablet 200 mg PO DAILY gabapentin 600 mg tablet 600 mg PO BID carvedilol 25 mg tablet 25 mg PO BID Rx Instructions: must administer with a meal/food doxazosin 8 mg tablet 8 mg PO DAILY simvastatin 20 mg tablet 20 mg PO DAILY pantoprazole 40 mg tablet,delayed release (DR/EC) 40 mg PO DAILY glycopyrrolate 1 mg tablet 1 mg PO BID furosemide 20 mg tablet 20 mg PO DAILY sildenafil 25 mg tablet 25 mg PO DAILY Rx Instructions: administer 30 minutes to 4 hours before activity tizanidine 4 mg capsule 4 mg PO .EVERY NIGHT testosterone cypionate 100 mg/mL oil 100 mg subcut .EVERY 2 WEEKS citalopram 20 mg tablet 20 mg PO DAILY clonazepam 0.5 mg tablet 0.5 mg PO DAILY hydroxyzine pamoate 25 mg capsule 25 mg PO QPM doxepin 10 mg capsule 10 mg PO DAILY PRN (Reason: itching) meclizine 25 mg tablet 25 mg PO DAILY etodolac [Lodine] 400 mg tablet 400 mg PO Q12H PRN (Reason: pain) Qty: 30 0RF Instructions: Ankle Sprain (ED), Ice Pack Application (ED) Additional Instructions: Follow-up with Dr. Vallejo Stand Alone Forms: Portal Instructions Referrals: Venus Mendez MD [Primary Care Provider] - 1 week
[2023-09-04 08:43] VITALS: BP 139/77; PULSE 87; RESP 18; O2SAT 98
== END 2023-09-04 09:06 | disposition home or self-care (01) ==
PROVIDERS: Emergency Provider Emergency Medicine; PCP Family Medicine
DX: S93.401A Sprain of unspecified ligament of right ankle, initial encounter (principal); S93.402A Sprain of unspecified ligament of left ankle, initial encounter; G47.419 Narcolepsy without cataplexy; W19.XXXA Unspecified fall, initial encounter; Z79.899 Other long term (current) drug therapy; Z79.82 Long term (current) use of aspirin; F41.9 Anxiety disorder, unspecified; E66.9 Obesity, unspecified; I10 Essential (primary) hypertension; G47.30 Sleep apnea, unspecified; Z98.890 Other specified postprocedural states; Z98.1 Arthrodesis status; Z68.41 Body mass index [BMI] 40.0-44.9, adult
CPT/HCPCS: 73610; 99283

== ENCOUNTER 2023-09-08 09:35 | Outpatient (OUT) | payer MEDICAID, SELFPAY ==
--- NOTE | 2023-09-08 10:07 | P.CN_ITS ---
Consult Note: HPI Data of Consult Patient: known to practice within the last 3 years Consult date: 06/14/23 Requesting Physician: Nicole Acevedo NP Primary Care Provider: Caden Mendez MD Consult Narrative Reason for consult: low back pain Narrative: 52yom who presents for assessment. notes increasing axial low back pain, worsened with standing and ambulation. engaged in >6 weeks of provider directed home exercises, with minimal benefit. underwent lumbar RFA in early 2020, which provided significant relief of >50% until recently. denies trauma. utilizes gabapentin. denies adverse med side effects. Pain today 8.5/10 in low back and neck, bilateral ankles. cc:: CC: Nicole Acevedo NP Review of Systems ROS Status of ROS 10 or more systems reviewed and unremark able except as noted in history and below Musculoskeletal Reports: back pain, neck pain and joint pain PFSH PFSH Medical History Narcolepsy ?G47.419 - 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) Anxiety ?F41.9 - Anxiety disorder, unspecified (ICD-10) Upper back pain ?M54.9 - Dorsalgia, unspecified (ICD-10) Low back pain ?M54.50 - Low back pain, unspecified (ICD-10) TMJ (dislocation of temporomandibular joint) ?S03.00XA - Dislocation of jaw, unspecified side, initial encounter (ICD-10) Obesity ?E66.9 - Obesity, unspecified (ICD-10) Sleep apnea ?G47.30 - Sleep apnea, unspecified (ICD-10) Hypertension ?I10 - Essential (primary) hypertension (ICD-10) Surgical History History of fusion of cervical spine ?Z98.1 - Arthrodesis status (ICD-10) H/O inguinal hernia repair ?Z98.890 - Other specified postprocedural states (ICD-10) ?Z87.19 - Personal history of other diseases of the digestive system (ICD-10) H/O repair of rotator cuff ?Z98.890 - Other specified postprocedural states (ICD-10) History of uvulopalatopharyngoplasty ?Z98.890 - Other specified postprocedural states (ICD-10) Meds Home Medications and Allergies Home Medications Medication Instructions Recorded Confirmed Type carvedilol 25 mg tablet 25 mg PO BID 06/14/23 09/04/23 History citalopram 20 mg tablet 20 mg PO DAILY 06/14/23 09/04/23 History clonazepam 0.5 mg tablet 0.5 mg PO DAILY 06/14/23 09/04/23 History doxazosin 8 mg tablet 8 mg PO DAILY 06/14/23 09/04/23 History doxepin 10 mg capsule 10 mg PO DAILY PRN itching 06/14/23 09/04/23 History furosemide 20 mg tablet 20 mg PO DAILY 06/14/23 09/04/23 History gabapentin 600 mg tablet 600 mg PO BID 06/14/23 09/04/23 History glycopyrrolate 1 mg tablet 1 mg PO BID 06/14/23 09/04/23 History hydroxyzine pamoate 25 mg capsule 25 mg PO QPM 06/14/23 09/04/23 History meclizine 25 mg tablet 25 mg PO DAILY 06/14/23 09/04/23 History pantoprazole 40 mg tablet,delayed 40 mg PO DAILY 06/14/23 09/04/23 History release sildenafil 25 mg tablet 25 mg PO DAILY 06/14/23 09/04/23 History simvastatin 20 mg tablet 20 mg PO DAILY 06/14/23 09/04/23 History testosterone cypionate 100 mg/mL 100 mg subcut .EVERY 2 WEEKS 06/14/23 09/04/23 History intramuscular oil tizanidine 4 mg capsule 4 mg PO .EVERY NIGHT 06/14/23 09/04/23 History etodolac 400 mg tablet (Lodine) 400 mg PO Q12H PRN pain #30 tabs 08/11/23 09/04/23 Rx aspirin 81 mg tablet,delayed 81 mg PO DAILY 09/04/23 09/04/23 History release (Miguel Angel Low Dose Aspirin) ibuprofen 800 mg tablet 800 mg PO Q8H PRN pain #20 tabs 09/04/23 Rx modafinil 200 mg tablet 200 mg PO DAILY 09/04/23 09/04/23 History potassium chloride 10 mEq 10 meq PO Q12H 09/04/23 09/04/23 History tablet,extended release Allergies Allergy/AdvReac Type Severity Reaction Status Date / Time No Known Drug Allergies Allergy Verified 08/30/23 11:41 Exam Narrative Exam Narrative: Psych-alert and oriented x 3. Attentive and appropriate, constitutionally normal, displays normal mood and affect per situation.? There are no obvious deficits in memory, reasoning, or intellect.? Skin-no obvious rashes, bruising, erythema noted to the patient's area of pain. Extremities- extremities are warm with minimal edema and palpable pulses. Lumbar-no significant tenderness to palpation noted in the lumbar spine and paraspinal musculature.? Pain is elicited with extension, and lateral rotation of the lumbar spine. Range of motion is slightly diminished with these motions due to pain. Facet loading maneuvers are positive bilaterally and do appear to be concordant with the patient's normal complaints of pain.? Coordination remains intact.? Gait remains non-antalgic. Constitutional Documenting provider has reviewed patient's vital signs: yes Common normals: no apparent distress, oriented x3, healthy appearing, alert and well nourished General appearance: cooperative HENMT Common normals: normocephalic, hearing grossly normal bilaterally and moist oral mucous membranes Head and scalp: normocephalic Eye Common normals: PERRL Pupil: PERRL Neck & C-Spine Common normals: full ROM General: normal visual inspection Cervical spine: cervical ROM abnormal and pain with cervical ROM Chest Common normals: inspection of chest normal Respiratory Common normals: normal respiratory effort, no retractions and no use of accessory muscles Back & Pelvis Lumbar spine/lower back: ROM limited, pain with ROM and straight leg raise negative bilaterally Neuro Common normals: oriented x3, CN's II-XII intact bilaterally, moves all extremities, no focal motor deficits, no sensory deficits noted and deep tendon reflexes 2+ bilaterally Sensorium/orientation: alert Motor exam: strength 5/5 throughout and no movement abnormalities noted Psych Common normals: mental status grossly normal, thought process normal, cooperative, affect normal, speech normal and activity/motor behavior normal Speech: normal speech Thought process: normal thought process Assessment and Plan Assessment and Plan (1) Lumbar spondylosis: (2) Bilateral ankle pain: (3) Neck pain: Plan celebrex 100mg BID PRN pain continue f/u with Dr Mendez for bilateral ankle pain NNCP chroniz benzodiazpines bilateral L4-5 L5-S1 facet medial branch thermal RFA under fluoroscopy with Dr Beauchamp f/u 1 month after
== END 2023-09-08 09:36 | disposition home or self-care (01) ==
LOC: PM 09:36
PROVIDERS: PCP Family Medicine; Visit Provider Nurse Practitioner
DX: M47.816 Spondylosis without myelopathy or radiculopathy, lumbar region (principal); M25.571 Pain in right ankle and joints of right foot; M25.572 Pain in left ankle and joints of left foot; M54.2 Cervicalgia
CPT/HCPCS: G0463

== ENCOUNTER 2023-10-18 07:36 | Day surgery (SDC) | payer MEDICAID, SELFPAY ==
--- OUTSIDE RECORDS SUMMARY | 2023-10-18 07:40 | XMS_ITS | CCD ---
Author Name Unknown Address [address] [place] [address] Organization [facility] Care Team Providers Care Face Burler Name Role Phone UNKNOWN, PROVIDER Admitting Unavailable UNKNOWN, PROVIDER Attending Unavailable VENUS MENDEZ Referring Unavailable VENUS MENDEZ Primary Care Unavailable IA Procedure Practitioner Unavailab le UNKNOWN, PROVIDER Surgeon Unavailable IA Procedure Practitioner Unavailab le SANDRA BILL Surgeon Unavailable UNKNOWN, PROVIDER Admitting Unavailable UNKNOWN, PROVIDER Attending Unavailable VENUS MENDEZ Referring Unavailable VENUS MENDEZ Primary Care Unavailable IA Procedure Practitioner Unavailab le UNKNOWN, PROVIDER Surgeon Unavailable Venus Mendez Primary Care Physician MIL ., DR DONOVAN Admitting Unavailable HOY [...] HOY ., DR DONOVAN Primary Care Unavailable EDDIEECK, DR JEWELL Bolom Admitting Unavailabl e AGA, DR JEWELL Bloom Attending Unavailabl e AGA, DR JEWELL Bloom Consulting Unavailabl e WEST, DR ALVINA Martinez Consulting Unavailable MIL ., DR DONOVAN Primary Care Unavailable MARCUS .PADMINI Admitting Unavailable MARCUS ., PADMINI Attending Unavailable MORENA ., DR ROBERTS Consulting Unavailable MARCUS ., PADMINI Consulting Unavailable ANGEL JORDAN Consulting Unavailable MICHAEL CASANOVA Consulting Unavailable MARIANNEY ., DR DONOVAN Primary Care Unavailable HOY ., DR DONOVAN Admitting Unavailable HOY ., DR DONOVAN Attending Unavailable HOY ., DR DONOVAN Consulting Unavailable SASCHA, DR ALVINA Martinez Consulting Unavailable DR ARMANDO BLACKMON Consulting Unavailable MARNIE RICHEY Consulting Unavailable MANUEL HOUGH Consulting Unavailable MAYRA BERNAL Consulting Unavailable Rubén Geiger Attending Unavailable Rubén Geiger Admitting Unavailable Venus Mendez Primary Care Unavailable Quynh DELGADO, Diallo Berkowitz Attending Unavailable Quynh DELGADO, Diallo Berkowitz Attending Unavailable Quynh DELGADO, Diallo Berkowitz Attending Unavailable RUBÉN GEIGER Attending Unavailable Allergies Allergy Classification Reported Allergen(s) Allergy Type Date of Onset Reaction(s) Facility (1 source) Aspartame Drug Allergy 08-17-20 [facility] Repository (1 source) avoid; Translations: [Unknown] Propensity to adverse reactions (disorder) 08-17-20 [facility] Repository (1 source) vitamin B12; Translations: [cyanocobalamin] Drug Allergy Unknown (qualifier value) [facility] (1 source) Acetaminophen / HYDROcodone Drug Allergy The Repository (1 source) Corticosteroids Drug allergy (disorder) The Repository (1 source) fentaNYL Drug Allergy The Repository (1 source) Misc-Food; Translations: [Misc-Food] Food allergy (disorder) The Repository (1 source) Corticosteroids Drug allergy (disorder) 05-14-20 [facility] Repository Medications Current Medications Medication Drug [...] Onset: 3 Chronic Other aftercare (1 source) 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; 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] Onset: 3 Episodic Other aftercare (1 source) Other retirement (current) drug therapy; Translations: [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] Onset: 3 Episodic Other [...] spine 5V*on 02-12 XR cervical spine 5V* [facility] Main [address] [address] XRay Report Signed Patient: Matty Garces MR#: [id number] 97 : 1970 Acct:[id number] Age/Sex: 52 / M ADM Date: 03/11/23 Loc: ICXD Room: Type: [facility] Attending Dr: Rubén Geiger MD Copies to: Rubén Geiger MD Ordering Provider: Rubén Geiger MD Date of Service: 03/11/23 XR/XR [...] Crow Contreras M.D.03/11/2023 3:48 PM Dictation Location: [place] [address] Transcribed By: [facility] 03/11/23 1548 Dictated By: Crow Contreras DO 03/11/23 1544 Signed By: 03/11/23 1548 [facility] CT CSPINE WO CONon CT CSPINE WO [...] ANGEL SAID Date: 2022-12-06 06:[address] FACIAL BONES WO CONon CT FACIAL [...] ANGEL SAID Date: 2022-12-06 06:[address] HEAD WO CONon 12-06-2022 CT HEAD [...] ANGEL SAID Date: 2022-12-06 06:39 Normal The XR ELBOW RT MIN 3 VIEWSon XR ELBOW RT MIN 3 VIEWS Exam: Radiographs: XR ELBOW RT MIN 3 VIEWS Reason for exam: Elbow pain Comparison: None IMPRESSION: Right elbow degenerative changes. Olecranon spur. Remainder of the right elbow is unremarkable. Electronically authenticated by: MICHAEL CASANOVA Date: 2022-12-06 07:22 Normal The XR FOREARM RT 2Von 03-26-202 3 XR FOREARM RT 2V Exam: Radiographs: XR FOREARM RT 2V Reason for exam: Forearm pain Comparison: None IMPRESSION: Mild degenerative changes in the right elbow and wrist. Right forearm is otherwise unremarkable. Electronically authenticated by: MICHAEL CASANOVA Date: 2022-12-06 08:07 Normal The PSA, FREE AND TOTAL RATIOon 12-03-2022 % Free PSA 9.0 % Normal [facility] Comment on above: Result Comment: The table [...] men. Performed By: #### P SAFREE #### Laboratory [address] [place] [address] Dr. Shabnam Rae Prostate specific Ag [Mass/Vol] 5.9 ng/mL Critically high 0.0-4.0 [facility] Comment on above: Result Comment: Roch lucy ECLIA methodology. . According to the [place] [employer], Serum PSA should decrease and [...] disease. Performed By: #### P SAFREE #### Laboratory [address] [place] [address] Dr. Shabnam Rae PSA, Free 0.53 ng/mL Normal N/A [facility] Comment on above: Result Comment: Roch e ECLIA methodology. Performed By: #### P SAFREE #### Laboratory [address] [place] [address] Dr. Shabnam Rae INSULINon 12-02-2022 Insulin 20.2 uIU/mL Normal 2.6-24.9 The Comment on above: Performed By: #### P SASC #### Laboratory [address] [place] [address] [address] Shabnam Rae TESTOSTERONE, TOTALon 2022 Testosterone [Mass/Vol] 256 ng/dL Critically low 264-916 The Comment on above: Result Comment: Adul t male reference interval is based on a population of healthy nonobese males (BMI <30) between 19 and 39 years old. adia hC.al. JCEM 2017,102;1249-1562. PMID: 03293133. Performed By: #### P SASC #### Laboratory [address] [place] [address] Dr. Shabnam Rae CBC AUTO DIFFon 12-01-2022 BASO # 0.1 103/ul Normal 0.0-0.1 [facility] Comment on above: Performed By: #### P SASC #### Laboratory [address] [place] [address] Dr. Shabnam Rae Basophils/100 WBC (Bld) 1.0 % Normal 0.2-2.0 The Comment on above: Performed By: #### P SASC #### Laboratory [address] [address] [address] Shabnam Rae EO # 0.1 103/ul Normal 0.0-0.7 The Comment on above: Performed By: #### P SASC #### Laboratory [address] [place] [address] Dr. Shabnam Rae Eosinophils/100 WBC (Bld) 1.8 % Normal 0.9-7.0 The Comment on above: Performed By: #### P SASC #### Laboratory [address] [place] [address] Dr. Shabnam Rae Erythrocyte distribution width (RBC) [Ratio] 14.8 % Normal 11.0-15.0 The Comment on above: Performed By: #### P SASC #### Laboratory [address] [place] [address] [address] Shabnam Rae Hematocrit (Bld) [Volume fraction] 49.9 % Normal 42.0-54.0 [facility] Comment on above: Performed By: #### P SASC #### Laboratory [address] [place] [address] [address] Shabnam Rae Hemoglobin (Bld) [Mass/Vol] 16.0 g/dL Normal 14.0-18.0 [facility] Comment on above: Performed By: #### P SASC #### Laboratory [address] [address] [address] Shabnam Rae IG # 0.04 10e3/ul Critically high 0.00-0.03 [facility] Comment on above: Performed By: #### P SASC #### Laboratory [address] [place] [address] Dr. Shabnam Rae IG % 0.6 % Critically high 0.0-0.5 [facility] Comment on above: Performed By: #### P SASC #### Laboratory [address] [address] [address] Shabnam Rae LYMPH # 1.0 103/ul Critically low 1.2-3.8 [facility] Comment on above: Performed By: #### P SASC #### Laboratory [address] [place] [address] [address] Shabnam Rae Lymphocytes/100 WBC (Bld) 16.2 % Critically low 20.5-60.0 [facility] Comment on above: Performed By: #### P SASC #### Laboratory [address] [place] [address] [address] Shabnam Rae MANUAL DIFF REQ NO Normal [facility] Comment on above: Performed By: #### P SASC #### Laboratory [address] [address] [address] Shabnam Rae MCH (RBC) [Entitic mass] 27.7 pg Normal 25.9-34.0 [facility] Comment on above: Performed By: #### P SASC #### Laboratory [address] [address] [address] Shabnam Rae MCHC (RBC) [Mass/Vol] 32.1 g/dL Normal 29.9-35.2 The Comment on above: Performed By: #### P SASC #### Laboratory [address] [address] [address] Shabnam Rae MCV (RBC) [Entitic vol] 86.3 fL Normal 80.0-94.0 The Comment on above: Performed By: #### P SASC #### Laboratory [address] [address] [address] Shabnam Rae MONO # 0.5 103/ul Normal 0.3-0.8 [facility] Comment on above: Performed By: #### P SASC #### Laboratory [address] [address] [address] Shabnam Rae Monocytes/100 WBC (Bld) 7.6 % Normal 1.7-12.0 [facility] Comment on above: Performed By: #### P SASC #### Laboratory [address] [place] [address] [address] Shabnam Rae NEUT # 4.6 103/ul Normal 1.4-6.5 [facility] Comment on above: Performed By: #### P SASC #### Laboratory [address] [address] [address] Shabnam Rae Neutrophils/100 WBC (Bld) 72.8 % Normal 43.0-75.0 The Comment on above: Performed By: #### P SASC #### Laboratory [address] [address] [address] Shabnam Rae Platelet mean volume (Bld) [Entitic vol] 9.8 fL Normal 9.5-13.5 The Comment on above: Performed By: #### P SASC #### Laboratory [address] [address] [address] Shabnam Rae PLT 203 103/ul Normal 150-450 The Comment on above: Performed By: #### P SASC #### Laboratory [address] [address] [address] Shabnam Rae RBC 5.78 106/ul Normal 4.70-6.10 The Comment on above: Performed By: #### P SASC #### Laboratory [address] [place] [address] Dr. Shabnam Rae WBC 6.3 103/ul Normal 4.0-11.0 [facility] Comment on above: Performed By: #### P SASC #### Laboratory [address] [place] [address] Dr. Shabnam Rae FREE THYROXINE INDEX T7on FTI 2.05 Normal 1.30-4.50 [facility] Comment on above: Performed By: #### T SH, CMP, LIPID, T7, URIC #### Laboratory [address] [place] [address] Dr. Shabnam Rae T3U 33.0 % Normal 33.0-40.0 [facility] Comment on above: Performed By: #### T SH, CMP, LIPID, T7, URIC #### Laboratory [address] [place] [address] Dr. Shabnam Rae T4 [Mass/Vol] 6.20 ug/dL Normal 4.50-12.10 [facility] Comment on above: Performed By: #### T SH, CMP, LIPID, T7, URIC #### Laboratory [address] [place] [address] Dr. Shabnam Rae GLYCOHEMOGLOBIN A1Con 2022 ADA RECOMMENDATION SEE BELOW Normal [facility] Comment on above: Result Comment: ADA RECOMMENDED LIMIT 4.0 - 6.0 ADA THERAPEUTIC TARGET < 7.0 ACTION SUGGESTED > 7.0 Performed By: #### P SASC #### Laboratory [address] [place] [address] Dr. Shabnam Rea Glucose [Mass/Vol] 114 mg/dL Normal [facility] Comment on above: Performed By: #### P SASC #### Laboratory [address] [place] [address] Dr. Shabnam Rae HbA1c (Bld) [Mass fraction] 5.6 % Normal 4.5-6.2 [facility] Comment on above: Performed By: #### P SASC #### Laboratory [address] [place] [address] Dr. Shabnam Rae LIPID PROFILEon 12-01-2022 CHOL-HDL RATIO NORM SEE BELOW Normal [facility] Comment on above: Result Comment: 3.3 - 4.4 LOW RISK 4.4 - 7.1 AVERAGE RISK 7.1 - 11.0 MODERATE RISK >11.0 HIGH RISK Performed By: #### T SH, CMP, LIPID, T7, URIC #### Laboratory [address] [place] [address] Dr. Shabnam Rae Cholesterol [Mass/Vol] 176 mg/dL Normal <=200 [facility] Comment on above: Performed By: #### T SH, CMP, LIPID, T7, URIC #### Laboratory [address] [place] [address] Dr. Shabnam Rae Cholesterol in HDL [Mass/Vol] 48 mg/dL Normal 40-60 [facility] Comment on above: Performed By: #### T SH, CMP, LIPID, T7, URIC #### Laboratory [address] [place] [address] Dr. Shabnam Rae Cholesterol in LDL [Mass/Vol] 108.2 mg/dL Normal [facility] Comment on above: Performed By: #### T SH, CMP, LIPID, T7, URIC #### Laboratory [address] [place] [address] Dr. Shabnam Rae Cholesterol.total/Ch olesterol in HDL [Mass ratio] 3.7 {ratio} Normal [facility] Comment on above: Performed By: #### T SH, CMP, LIPID, T7, URIC #### Laboratory [address] [place] [address] Dr. Shabnam Rae HDL NORMAL > or = 60 mg/dl - LOW CARDIOVASCULAR RISK <40 mg/dl - HIGH CARDIOVASCULAR RISK Normal [facility] Comment on above: Performed By: #### T SH, CMP, LIPID, T7, URIC #### Laboratory [address] [place] [address] Dr. Shabnam Rae LDL CALC NORMAL SEE BELOW Normal [facility] Comment on above: Result Comment: <100 mg/dl OPTIMAL 100 - 129 mg/dl NEAR OR ABOVE OPTIMAL 130 - 159 mg/dl BORDERLINE HIGH 160 - 189 mg/dl HIGH >190 mg/dl VERY HIGH Performed By: #### T SH, CMP, LIPID, T7, URIC #### Laboratory [address] [address] [address] Shabnam Rae Triglyceride [Mass/Vol] 99 mg/dL Normal <=150 [facility] Comment on above: Performed By: #### T SH, CMP, LIPID, T7, URIC #### Laboratory [address] [address] [address] Shabnam Rae VLDL CALC 19.8 mg/dL Normal [facility] Comment on above: Performed By: #### T SH, CMP, LIPID, T7, URIC #### Laboratory [address] [address] [address] Shabnam Rae PROF 14(COMP METB)on 023 Albumin [Mass/Vol] 4.1 g/dL Normal 3.4-5.0 [facility] Comment on above: Performed By: #### T SH, CMP, LIPID, T7, URIC #### Laboratory [address] [address] [address] Shabnam Rae Albumin/Globulin [Mass ratio] 1.1 {ratio} Normal [facility] Comment on above: Performed By: #### T SH, CMP, LIPID, T7, URIC #### Laboratory [address] [address] [address] Shabnam Rae ALP [Catalytic activity/Vol] 101 U/L Normal 46-116 [facility] Comment on above: Performed By: #### T SH, CMP, LIPID, T7, URIC #### Laboratory [address] [address] [address] Shabnam Rae ALT [Catalytic activity/Vol] 26 U/L Normal 16-63 [facility] Comment on above: Performed By: #### T SH, CMP, LIPID, T7, URIC #### Laboratory [address] [address] [address] Shabnam Rae Anion gap [Moles/Vol] 10.1 mmol/L Normal [facility] Comment on above: Performed By: #### T SH, CMP, LIPID, T7, URIC #### Laboratory [address] [place] [address] Dr. Shabnam Rae AST [Catalytic activity/Vol] 19 U/L Normal 15-37 [facility] Comment on above: Performed By: #### T SH, CMP, LIPID, T7, URIC #### Laboratory [address] [address] [address] Shabnam Rae Bilirubin [Mass/Vol] 0.8 mg/dL Normal 0.2-1.0 [facility] Comment on above: Performed By: #### T SH, CMP, LIPID, T7, URIC #### Laboratory [address] [place] [address] Dr. Shabnam Rae Calcium [Mass/Vol] 9.5 mg/dL Normal 8.5-10.1 [facility] Comment on above: Performed By: #### T SH, CMP, LIPID, T7, URIC #### Laboratory [address] [address] [address] Shabnam Rae Chloride [Moles/Vol] 102 mmol/L Normal 98-107 [facility] Comment on above: Performed By: #### T SH, CMP, LIPID, T7, URIC #### Laboratory [address] [address] [address] Shabnam Rae CO2 [Moles/Vol] 32.4 mmol/L Critically high 21.0-32.0 [facility] Comment on above: Performed By: #### T SH, CMP, LIPID, T7, URIC #### Laboratory [address] [place] [address] Dr. Shabnam Rae Creatinine [Mass/Vol] 1.00 mg/dL Normal 0.70-1.30 [facility] Comment on above: Performed By: #### T SH, CMP, LIPID, T7, URIC #### Laboratory [address] [place] [address] Dr. Shabnam Rae EGFR-AF SAO TOMEAN >60 Normal >=60 [facility] Comment on above: Performed By: #### T SH, CMP, LIPID, T7, URIC #### Laboratory [address] [address] [address] Shabnam Rae EGFR-NON AF SAO TOMEAN >60 Normal >=60 [facility] Comment on above: Performed By: #### T SH, CMP, LIPID, T7, URIC #### Laboratory [address] [address] [address] Shabnam Rae Globulin (S) [Mass/Vol] 3.8 g/dL Normal [facility] Comment on above: Performed By: #### T SH, CMP, LIPID, T7, URIC #### Laboratory [address] [place] [address] Dr. Shabnam Rae Glucose [Mass/Vol] 94 mg/dL Normal 74-106 [facility] Comment on above: Performed By: #### T SH, CMP, LIPID, T7, URIC #### Laboratory [address] [place] [address] Dr. Shabnam Rae Potassium [Moles/Vol] 3.5 mmol/L Normal 3.5-5.1 The Comment on above: Performed By: #### T SH, CMP, LIPID, T7, URIC #### Laboratory [address] [place] [address] Dr. Shabnam Rae Protein [Mass/Vol] 7.9 g/dL Normal 6.4-8.2 [facility] Comment on above: Performed By: #### T SH, CMP, LIPID, T7, URIC #### Laboratory [address] [address] [address] Shabnam Rae Sodium [Moles/Vol] 141 mmol/L Normal 136-145 [facility] Comment on above: Performed By: #### T SH, CMP, LIPID, T7, URIC #### Laboratory [address] [place] [address] Dr. Shbanam Rae Urea nitrogen [Mass/Vol] 15.0 mg/dL Normal 7.0-18.0 The Comment on above: Performed By: #### T SH, CMP, LIPID, T7, URIC #### Laboratory [id number] Shabnam Rae Urea nitrogen/Creatinine [Mass ratio] 15.0 mg/mg Normal The Comment on above: Performed By: #### T SH, CMP, LIPID, T7, URIC #### Laboratory [id number] Shabnam Rae TSHon 12-01-2022 TSH 1.504 uIU/mL Normal 0.358-3.740 [facility] Comment on above: Performed By: #### T SH, CMP, LIPID, T7, URIC #### Laboratory [id number] Shabnam Rae URIC ACID SERUMon 12-01-2022 Urate [Mass/Vol] 6.9 mg/dL Normal 3.5-7.2 [facility] Comment on above: Performed By: #### T SH, CMP, LIPID, T7, URIC #### Laboratory [address] [address] [address] Shabnam Rae TESTOSTERONE, TOTALon 2021 Testosterone [Mass/Vol] 244 ng/dL Critically low 264-916 [facility] Comment on above: Result Comment: Adul t male reference interval is based on a population of healthy nonobese males (BMI <30) between 19 and 39 years old. Dima, et.al. JCEM 2017,102;6708-9636. PMID: [id number]. Performed By: #### P SAFREE #### Laboratory [address] [place] [address] Dr. Shabnam Rae TESTOSTERONE, FREE,DIRECT, T OTALon 03-16-2022 Free Testosterone(Direct) 2.1 pg/mL Critically low 7.2-24.0 [facility] Comment on above: Result Comment: Perf ormed at: BN Performed By: #### C VDTBH #### Laboratory [id number] Shabnam Rae Testosterone [Mass/Vol] 252 ng/dL Critically low 264-916 [facility] Comment on above: Result Comment: Adul t male reference interval is based on a population of healthy nonobese males (BMI <30) between 19 and 39 years old. Dima et.al. JCEM 2017,102;9039-8655. PMID: 16281975. Performed at: CB Performed By: #### [facility] #### Laboratory [address] [address] [address] Shabnam Rae Formson 02-26-2022 Forms [id number] 7#1.00CD:127 Normal [facility] Screenson 02-26-2022 Screens [id number] 7#1.00CD:127 Normal [facility] Screens [id number] #1.00CD:127 Normal [facility] Urology Office/Clinic Noteon 02-26-2022 Urology Office/Clinic Note [...] qualifying data (more content not included)... Normal [facility] Comment on above: Result Comment: Elec tronically Signed By: Viola Grullon MD\.br\Date and Time Signed: 02/26/22 00:20 EDT\.br\Electronically Co-Signed By: Helen Leung\.br\Date and Time Co-Signed: 02/25/22 11:16 EDT Ambulatory Visit Summaryon 0 02-25-2022 Ambulatory Visit Summary MATTY GARCES :1970 Visit Date:02/25/2022 Ambulatory Visit Instructions Your Diagnosis Hydrocele Varicocele BPH without urinary obstruction Tests Performed Urnls Dip Stick Auto w/o Microscopy POC 09164 Your Care Team Attending Physician - Viola [...] Urnls Dip Stick Auto w/o Microscopy POC 37541 (02/25/2022) Bilirubin Urine Dipstick - Negative Blood Urine Dipstick - Negative Glucose Urine Dipstick - Negative Ketones Urine Dipstick - Negative Leukocytes Urine Dipstick - Negative Nitrite Urine Dipstick - Negative Protein Urine Dipstick - Negative Specific [place] Urine Dipstick - >=1.030 Urine Appearance Urine [...] the hydrocele for any changes. ? Take cgwp-vti-kbnexod and prescription medicines only as told by [...] intended t (more content not included)... Normal [facility] Patient Educationon 02-26-20 Patient Education [...] the hydrocele for any changes. ? Take kbvk-qor-vowtkjv and prescription medicines only as told by [...] 02/17/2011 Document Revised: 09/10/2018 Document Reviewed: 09/10/2018 Elsevier Patient Education ? 2019 [employer]. [facility] ED Note-Physicianon 05-24-20 22 ED Note-Physician [id number] 62#1.00CD:127 Normal [facility] RAD - Ultrasound Reporton RAD - Ultrasound Report [id number] #1.00CD:127 Normal [facility] RAD - CT Reporton 02-02-2022 RAD - CT Report [id number] 55#1.00CD:127 Normal [facility] RAD - CT Report [id number] 75#1.00CD:127 Normal [facility] CBC AUTO DIFFon 01-05-2022 BASO # 0.0 103/ul Normal 0.0-0.1 [facility] Comment on above: Performed By: #### P SAFREE #### Laboratory [address] [place] [address] Dr. Shabnam Rae Basophils/100 WBC (Bld) 0.6 % Normal 0.2-2.0 [facility] Comment on above: Performed By: #### P SAFREE #### Laboratory [address] [address] [address] Shabnam Rae EO # 0.1 103/ul Normal 0.0-0.7 [facility] Comment on above: Performed By: #### P SAFREE #### Laboratory [address] [address] [address] Shabnam Rae Eosinophils/100 WBC (Bld) 2.1 % Normal 0.9-7.0 [facility] Comment on above: Performed By: #### P SAFREE #### Laboratory [address] [address] [address] Shabnam Rae Erythrocyte distribution width (RBC) [Ratio] 13.1 % Normal 11.0-15.0 [facility] Comment on above: Performed By: #### P SAFREE #### Laboratory [address] [place] [address] Dr. Shabnam Rae Hematocrit (Bld) [Volume fraction] 43.1 % Normal 42.0-54.0 [facility] Comment on above: Performed By: #### P SAFREE #### Laboratory [address] [address] [address] Shabnam Rae Hemoglobin (Bld) [Mass/Vol] 13.7 g/dL Critically low 14.0-18.0 [facility] Comment on above: Performed By: #### P SAFREE #### Laboratory [address] [address] [address] Shabnam Rae IG # 0.04 10e3/ul Critically high 0.00-0.03 [facility] Comment on above: Performed By: #### P SAFREE #### Laboratory [address] [address] [address] Shabnam Rae IG % 0.6 % Critically high 0.0-0.5 [facility] Comment on above: Performed By: #### P SAFREE #### Laboratory [address] [address] [address] Shabnam Rae LYMPH # 0.9 103/ul Critically low 1.2-3.8 [facility] Comment on above: Performed By: #### P SAFREE #### Laboratory [address] [address] [address] Shabnam Rae Lymphocytes/100 WBC (Bld) 13.1 % Critically low 20.5-60.0 [facility] Comment on above: Performed By: #### P SAFREE #### Laboratory [address] [address] [address] Shabnam Rae MANUAL DIFF REQ NO Normal [facility] Comment on above: Performed By: #### P SAFREE #### Laboratory [address] [address] [address] Shabnam Rae MCH (RBC) [Entitic mass] 29.5 pg Normal 25.9-34.0 [facility] Comment on above: Performed By: #### P SAFREE #### Laboratory [address] [address] [address] Shabnam Rae MCHC (RBC) [Mass/Vol] 31.8 g/dL Normal 29.9-35.2 [facility] Comment on above: Performed By: #### P SAFREE #### Laboratory [address] [address] [address] Shabnam Rae MCV (RBC) [Entitic vol] 92.9 fL Normal 80.0-94.0 [facility] Comment on above: Performed By: #### P SAFREE #### Laboratory [address] [address] [address] Shabnam Rae MONO # 0.4 103/ul Normal 0.3-0.8 [facility] Comment on above: Performed By: #### P SAFREE #### Laboratory [address] [address] [address] Shabnam Rae Monocytes/100 WBC (Bld) 5.4 % Normal 1.7-12.0 [facility] Comment on above: Performed By: #### P SAFREE #### Laboratory [address] [address] [address] Shbanam Rae NEUT # 5.2 103/ul Normal 1.4-6.5 [facility] Comment on above: Performed By: #### P SAFREE #### Laboratory [address] [address] [address] Shabnam Rae Neutrophils/100 WBC (Bld) 78.2 % Critically high 43.0-75.0 [facility] Comment on above: Performed By: #### P SAFREE #### Laboratory [address] [address] [address] Shabnam Rae Platelet mean volume (Bld) [Entitic vol] 10.9 fL Normal 9.5-13.5 The Comment on above: Performed By: #### P SAFREE #### Laboratory [address] [address] [address] Shabnam Rae PLT 153 103/ul Normal 150-450 The Comment on above: Performed By: #### P SAFREE #### Laboratory [address] [address] [address] Shabnam Rae RBC 4.64 106/ul Critically low 4.70-6.10 [facility] Comment on above: Performed By: #### P SAFREE #### Laboratory [address] [place] [address] Dr. Shabnam Rae WBC 6.6 103/ul Normal 4.0-11.0 [facility] Comment on above: Performed By: #### P SAFREE #### Laboratory [address] [place] [address] Dr. Shabnam Rae CRPon 01-05-2022 CRP 0.9 mg/dL Normal <=1.0 [facility] Comment on above: Performed By: #### P SAFREE #### Laboratory [address] [place] [address] Dr. Shabnam Rae PROF 14(COMP METB)on 022 Albumin [Mass/Vol] 3.6 g/dL Normal 3.4-5.0 [facility] Comment on above: Performed By: #### P SAFREE #### Laboratory [address] [place] [address] Dr. Shabnam Rae Albumin/Globulin [Mass ratio] 1.0 {ratio} Normal [facility] Comment on above: Performed By: #### P SAFREE #### Laboratory [address] [place] [address] Dr. Shabnam Rae ALP [Catalytic activity/Vol] 114 U/L Normal 46-116 [facility] Comment on above: Performed By: #### P SAFREE #### Laboratory [address] [place] [address] Dr. Shabnam Rae ALT [Catalytic activity/Vol] 26 U/L Normal 16-63 The Comment on above: Performed By: #### P SAFREE #### Laboratory [address] [place] [address] Dr. Shabnam Rae Anion gap [Moles/Vol] 9.3 mmol/L Normal [facility] Comment on above: Performed By: #### P SAFREE #### Laboratory [address] [place] [address] Dr. Shabnam Rae AST [Catalytic activity/Vol] 19 U/L Normal 15-37 [facility] Comment on above: Performed By: #### P SAFREE #### Laboratory [address] [address] [address] Shabnam Rae Bilirubin [Mass/Vol] 0.5 mg/dL Normal 0.2-1.0 [facility] Comment on above: Performed By: #### P SAFREE #### Laboratory [address] [address] [address] Shabnam Rae Calcium [Mass/Vol] 8.9 mg/dL Normal 8.5-10.1 [facility] Comment on above: Performed By: #### P SAFREE #### Laboratory [address] [address] [address] Shabnam Rae Chloride [Moles/Vol] 106 mmol/L Normal 98-107 [facility] Comment on above: Performed By: #### P SAFREE #### Laboratory [address] [address] [address] Shabnam Rae CO2 [Moles/Vol] 30.7 mmol/L Normal 21.0-32.0 [facility] Comment on above: Performed By: #### P SAFREE #### Laboratory [address] [address] [address] Shabnam Rae Creatinine [Mass/Vol] 1.15 mg/dL Normal 0.70-1.30 [facility] Comment on above: Performed By: #### P SAFREE #### Laboratory [address] [address] [address] Shabnam Rae EGFR-AF SAO TOMEAN >60 Normal >=60 [facility] Comment on above: Performed By: #### P SAFREE #### Laboratory [address] [address] [address] Shabnam Rae EGFR-NON AF SAO TOMEAN >60 Normal >=60 [facility] Comment on above: Performed By: #### P SAFREE #### Laboratory [address] [address] [address] Shabnam Rae Globulin (S) [Mass/Vol] 3.6 g/dL Normal [facility] Comment on above: Performed By: #### P SAFREE #### Laboratory [address] [address] [address] Shabnam Rae Glucose [Mass/Vol] 117 mg/dL Critically high 74-106 T [facility] Comment on above: Performed By: #### P SAFREE #### Laboratory [address] [address] [address] Shabnam Rae Potassium [Moles/Vol] 4.0 mmol/L Normal 3.5-5.1 [facility] Comment on above: Performed By: #### P SAFREE #### Laboratory [address] [address] [address] Shabnam Rae Protein [Mass/Vol] 7.2 g/dL Normal 6.1-8.2 [facility] Comment on above: Performed By: #### P SAFREE #### Laboratory [address] [address] [address] Shabnam Rae Sodium [Moles/Vol] 142 mmol/L Normal 136-145 [facility] Comment on above: Performed By: #### P SAFREE #### Laboratory [address] [address] [address] Shabnam Rae Urea nitrogen [Mass/Vol] 15.0 mg/dL Normal 7.0-18.0 [facility] Comment on above: Performed By: #### P SAFREE #### Laboratory [address] [address] [address] Shabnam Rae Urea nitrogen/Creatinine [Mass ratio] 13.0 mg/mg Normal [facility] Comment on above: Performed By: #### P SAFREE #### Laboratory [address] [place] [address] Dr. Shabnam Rae US SCROTUMon 01-05-2022 US [...] ALVINA CAICEDO Date: 2022-01-05 08:48 Normal The CBC AUTO DIFFon 01-04-2022 BASO # 0.1 103/ul Normal 0.0-0.1 The Comment on above: Performed By: #### C BC #### Laboratory [address] [place] [address] Dr. Shabnam Rae Basophils/100 WBC (Bld) 0.8 % Normal 0.2-2.0 The Comment on above: Performed By: #### C BC #### Laboratory [address] [place] [address] Dr. Shabnam Rae EO # 0.1 103/ul Normal 0.0-0.7 The Comment on above: Performed By: #### C BC #### Laboratory [address] [place] [address] Dr. Shabnam Rae Eosinophils/100 WBC (Bld) 1.5 % Normal 0.9-7.0 The Comment on above: Performed By: #### C BC #### Laboratory [address] [place] [address] Dr. Shabnam Rae Erythrocyte distribution width (RBC) [Ratio] 12.8 % Normal 11.0-15.0 The Comment on above: Performed By: #### C BC #### Laboratory [address] [place] [address] Dr. Shabnam Rae Hematocrit (Bld) [Volume fraction] 40.3 % Critically low 42.0-54.0 [facility] Comment on above: Performed By: #### C BC #### Laboratory [address] [place] [address] Dr. Shabnam Rae Hemoglobin (Bld) [Mass/Vol] 13.4 g/dL Critically low 14.0-18.0 [facility] Comment on above: Performed By: #### C BC #### Laboratory [address] [place] [address] Dr. Shabnam Rae IG # 0.03 10e3/ul Normal 0.00-0.03 [facility] Comment on above: Performed By: #### C BC #### Laboratory [address] [place] [address] Dr. Shabnam Rae IG % 0.5 % Normal 0.0-0.5 [facility] Comment on above: Performed By: #### C BC #### Laboratory [address] [place] [address] Dr. Shabnam Rae LYMPH # 1.0 103/ul Critically low 1.2-3.8 [facility] Comment on above: Performed By: #### C BC #### Laboratory [address] [place] [address] Dr. Shabnam Rae Lymphocytes/100 WBC (Bld) 16.4 % Critically low 20.5-60.0 [facility] Comment on above: Performed By: #### C BC #### Laboratory [address] [place] [address] Dr. Shabnam Rae MANUAL DIFF REQ NO Normal [facility] Comment on above: Performed By: #### C BC #### Laboratory [address] [place] [address] Dr. Shabnam Rae MCH (RBC) [Entitic mass] 29.5 pg Normal 25.9-34.0 [facility] Comment on above: Performed By: #### C BC #### Laboratory [id number] Shabnam Rae MCHC (RBC) [Mass/Vol] 33.3 g/dL Normal 29.9-35.2 The Comment on above: Performed By: #### C BC #### Laboratory [id number] Shabnam Rae MCV (RBC) [Entitic vol] 88.8 fL Normal 80.0-94.0 The Comment on above: Performed By: #### C BC #### Laboratory [address] [address] [address] Shabnam Rae MONO # 0.6 103/ul Normal 0.3-0.8 The Comment on above: Performed By: #### C BC #### Laboratory [address] [place] [address] Dr. Shabnam Rae Monocytes/100 WBC (Bld) 9.6 % Normal 1.7-12.0 [facility] Comment on above: Performed By: #### C BC #### Laboratory [address] [place] [address] Dr. Shabnam Rae NEUT # 4.4 103/ul Normal 1.4-6.5 [facility] Comment on above: Performed By: #### C BC #### Laboratory [address] [place] [address] Dr. Shabnam Rae Neutrophils/100 WBC (Bld) 71.2 % Normal 43.0-75.0 The Comment on above: Performed By: #### C BC #### Laboratory [address] [place], [place] [id number] Dr. Shabnam Rae Platelet mean volume (Bld) [Entitic vol] 10.8 fL Normal 9.5-13.5 The Comment on above: Performed By: #### C BC #### Laboratory [address] [place], [place] [id number] Dr. Shabnam Rae PLT 158 103/ul Normal 150-450 The Comment on above: Performed By: #### C BC #### Laboratory [address] [place] [address] [address] [address] Shabnam Rae RBC 4.54 106/ul Critically low 4.70-6.10 [facility] Comment on above: Performed By: #### C BC #### Laboratory [address], [place] [address] Dr. Shabnam Rae WBC 6.2 103/ul Normal 4.0-11.0 [facility] Comment on above: Performed By: #### C BC #### Laboratory [address] [place], [place] [address] ABD/PELV W CONon [...] MAYRA BERNAL Date: 2022-01-04 05:[address] PELVIS WO CONon CT PELVIS WO CON EXAMINATION: CT PELVIS [...] MANUEL HOUGH Date: 2022-01-04 08:54 Normal The CULTURE URINEon 01-04-2022 CULTURE URINE Culture Observations: No growth Normal The Comment on above: Performed By: #### P [facility] #### Laboratory [address] [place] [address] Dr. Shabnam Rae Covid-19 PCR (CVDTB)on 12-13 SARS-CoV-2 (COVID-19) RNA ELIJAH+probe Ql (Unsp spec) Not detected Normal NOT DETECTED The Comment on above: Result Comment: When diagnostic testing is negative, the possibility of a false negative should be considered in the context of a patient's recent exposures and the presence of clinical signs and symptoms consistent with SARS-CoV-2. This test is not yet approved or cleared by the [place] Food and Drug Administration (FDA). This test was developed by [employer], [place], [place]. The performance characteristics of this test were validated by The Laboratory. The results are not intended to be used as the sole means for clinical diagnosis or patient management decisions. The is authorized under Clinical Laboratory Improvement Amendments [...] for this test is supported by the [place] of Health and Human Service's declaration that [...] used). Performed By: #### C [facility] #### Laboratory [address] [place] [address] Dr. Shabnam Rae ER URINE PROFILEon 2 Bilirubin Ql (U) Negative Normal NEGATIVE [facility] Comment on above: Performed By: #### P SASC #### Laboratory [address] [place] [address] Dr. Shabnam Rae Clarity (U) CLEAR Normal CLEAR The Comment on above: Performed By: #### P SASC #### Laboratory [address] [place] [address] Dr. Shabnam Rae Color (U) YELLOW Normal YELLOW [facility] Comment on above: Performed By: #### P SASC #### Laboratory [address] [address] [address] Shabnam HERNANDEZ A micrscopic examination will be performed if indicated. Normal [facility] Comment on above: Performed By: #### P SASC #### Laboratory [address] [address] [address] Shabnam Rae Glucose Ql (U) Negative Normal NEGATIVE [facility] Comment on above: Performed By: #### P SASC #### Laboratory [address] [address] [address] Shabnam Rae Hemoglobin Ql (U) Negative Normal NEGATIVE [facility] Comment on above: Performed By: #### P SASC #### Laboratory [address] [place] [address] Dr. Shabnam Rae Ketones Ql (U) Negative Normal NEGATIVE [facility] Comment on above: Performed By: #### P SASC #### Laboratory [address] [address] [address] Shabnam Rae LEUKOCYTES Negative Normal NEGATIVE [facility] Comment on above: Performed By: #### P SASC #### Laboratory [address] [address] [address] Shabnam Rae Nitrite Ql (U) Negative Normal NEGATIVE [facility] Comment on above: Performed By: #### P SASC #### Laboratory [address] [address] [address] Shabnam Rae pH (U) 6.5 [pH] Normal 5-9 [facility] Comment on above: Performed By: #### P SASC #### Laboratory [address] [address] [address] Shabnam Rae SPEC GRAVITY 1.010 Normal 1.005-<=1.025 [facility] Comment on above: Performed By: #### P SASC #### Laboratory [address] [address] [address] Shabnam Rae UA PROTEIN Negative Normal NEGATIVE/ TRACE The Comment on above: Performed By: #### P SASC #### Laboratory [address] [address] [address] Shabnam Rae UR MICRO IND NOT INDICATED Normal [facility] Comment on above: Performed By: #### P SASC #### Laboratory [address] [address] [address] Shabnam Rae Urobilinogen Qn (U) 0.2 {Sarai'U}/dL Normal 0.2 - 1. 0 [facility] Comment on above: Performed By: #### P SASC #### Laboratory [address] [address] [address] Shabnam Rae LACTATE/LACTIC ACIDon 2021 Lactate [Moles/Vol] 1.0 mmol/L Normal 0.4-2.0 [facility] Comment on above: Performed By: #### P SASC #### Laboratory [address] [place] [address] Dr. Shabnam Rae PROF CHEM 8 (BAS METB)on Anion gap [Moles/Vol] 10.0 mmol/L Normal [facility] Comment on above: Performed By: #### B MP #### Laboratory [address] [place] [address] Dr. Shabnam Rae Calcium [Mass/Vol] 8.5 mg/dL Normal 8.5-10.1 [facility] Comment on above: Performed By: #### B MP #### Laboratory [address] [place] [address] Dr. Shabnam Rae Chloride [Moles/Vol] 103 mmol/L Normal 98-107 [facility] Comment on above: Performed By: #### B MP #### Laboratory [address] [place] [address] Dr. Shabnam Rae CO2 [Moles/Vol] 29.2 mmol/L Normal 21.0-32.0 [facility] Comment on above: Performed By: #### B MP #### Laboratory [address] [place] [address] Dr. Shabnam Rae Creatinine [Mass/Vol] 1.25 mg/dL Normal 0.70-1.30 [facility] Comment on above: Performed By: #### B MP #### Laboratory [address] [address] [address] Shabnam Rae EGFR-AF SAO TOMEAN >60 Normal >=60 [facility] Comment on above: Performed By: #### B MP #### Laboratory [id number] Shabnam Rae EGFR-NON AF SAO TOMEAN >60 Normal >=60 [facility] Comment on above: Performed By: #### B MP #### Laboratory [address] [address] [address] Shabnam Rae Glucose [Mass/Vol] 132 mg/dL Critically high 74-106 T [facility] Comment on above: Performed By: #### B MP #### Laboratory [address] [address] [address] Shabnam Rae Potassium [Moles/Vol] 3.2 mmol/L Critically low 3.5-5.1 [facility] Comment on above: Performed By: #### B MP #### Laboratory [address] [address] [address] Shabnam Rae Sodium [Moles/Vol] 139 mmol/L Normal 136-145 [facility] Comment on above: Performed By: #### B MP #### Laboratory [address] [address] [address] Shabnam Rae Urea nitrogen [Mass/Vol] 19.0 mg/dL Critically high 7.0-18.0 [facility] Comment on above: Performed By: #### B MP #### Laboratory [address] [address] [address] Shabnam Rae Urea nitrogen/Creatinine [Mass ratio] 15.2 mg/mg Normal [facility] Comment on above: Performed By: #### B MP #### Laboratory [id number] Shabnam Rae CERVICAL SPINE 2 OR 3 [facility] 07-06-2019 CERVICAL SPINE 2 OR 3 VWS [facility] Department of Radiology [address] [place] [phone] Patient Name: MATTY GARCES : 1970 Sex: M Age: Race: White Pt. Location: Patient Status: O Ordered Date: 07/06/2019 9:10:00 AM Completed Date: 07/06/2019 09:21 AM Requesting Provider: LUCIANO VIEIRA Attending Provider: LUCIANO VIEIRA Report Copy To: VENUS MENDEZ Signs & Symptoms: M48.02 Spinal stenosis, cervical region I10 History: [place] Comments: , STAT READ , STAT READ [...] findings. Electronically signed by:Bernice Hoyt. Transcribed by: [email or web address], User Resident: RADHA CHIN Electronically Signed by: BERNICE HOYT @ 07/06/2019 08:52 PM I personally read this/these film(s) with this resident Normal The [facility] Comment on above: Order Comment: , STA T READ , STAT READ , , , Ordering Provider - LUCIANO VIEIRA MD , CERVICAL SPINE 2 OR 3 [facility] 04-06-2019 CERVICAL SPINE 2 OR 3 [facility] Department of Radiology [address] [place] [phone] Patient Name: MATTY GARCES : 1970 [...] FALLS Exam: CERVICAL SPINE 2 OR 3 [facility] CERVICAL SPINE 2 OR 3 S [...] study. Electronically signed by:Bernice Hoyt. Transcribed by: [email or web address], User Resident: Electronically Signed by: BERNICE HOYT @ 04/06/2019 04:40 PM Normal The [facility] Comment on above: Order Comment: AP/LA T, ODONTOID PLEASE DO SWIMMER'S VIEW FOLLOW UP HARDWARE AND ALIGNMENT, S/P ACDF, RECENT FALLS CERVICAL SPINE 2 OR 3 [facility] 02-17-2019 CERVICAL SPINE 2 OR 3 [facility] Department of Radiology [address] [place] [phone] Patient Name: MATTY GARCES : 1970 [...] by:Florentino Tinajero on 02/17/2019 6:24 PM EDT. IBella, have reviewed the images and report and concur with these findings. Electronically signed by:Bella King. Transcribed by: [email or web address], User Resident: EMILE TINAJERO Electronically Signed by: BELLA KING @ 02/20/2019 11:53 AM I personally read this/these film(s) with this resident Normal The [facility] Comment on above: Order Comment: C-SPI NE 2 OR 3 VIEW POSTOP, EVALUATION HARDWARE AN ALIGNMENT BASIC METABOLIC PANELon 05- Calcium [Mass/Vol] 9.2 mg/dL Normal 8.6-10.3 [facility] Comment on above: Order Comment: No: D o not add to previous draw Performed By: #### 5 0103 #### [facility] [address] [place] [address], [place] Chloride [Moles/Vol] 101 mmol/L Normal 98-107 The [facility] Comment on above: Order Comment: No: D o not add to previous draw Performed By: #### 5 0103 #### [facility] [address] [place] [address], [place] CO2 [Moles/Vol] 26 mmol/L Normal 21-31 The [facility] Comment on above: Order Comment: No: D o not add to previous draw Performed By: #### 5 0103 #### [facility] [address] [place] [address], [place] Creatinine [Mass/Vol] 1.02 mg/dL Normal 0.70-1.30 The [facility] Comment on above: Order Comment: No: D o not add to previous draw Performed By: #### 5 0103 #### [facility] [address] [place] [address], [place] GFR/1.73 sq M predicted among blacks MDRD (S/P/Bld) [Vol rate/Area] mL/min/{1.73_m2} Normal >60 The [facility] Comment on above: Order Comment: No: D o not add to previous draw Performed By: #### 5 0103 #### [facility] [address] [place] [address], [facility] GFR/1.73 sq M predicted among non-blacks MDRD (S/P/Bld) [Vol rate/Area] mL/min/{1.73_m2} Normal >60 The [facility] Comment on above: Order Comment: No: D o not add to previous draw Performed By: #### 5 0103 #### [facility] [address] [place] [address], [facility] Glucose [Mass/Vol] 124 mg/dL High 70-100 The [facility] Comment on above: Order Comment: No: D o not add to previous draw Performed By: #### 5 0103 #### [facility] [address] [place] [address], [facility] Potassium [Moles/Vol] 3.9 mmol/L Normal 3.5-5.1 The [facility] Comment on above: Order Comment: No: D o not add to previous draw Performed By: #### 5 0103 #### [facility] [address] [place] [address], [place] Sodium [Moles/Vol] 137 mmol/L Normal 136-145 The [facility] Comment on above: Order Comment: No: D o not add to previous draw Performed By: #### 5 0103 #### [facility] [address] [place] [address], [facility] Urea nitrogen [Mass/Vol] 15 mg/dL Normal 7-25 The [facility] Comment on above: Order Comment: No: D o not add to previous draw Performed By: #### 5 0103 #### [facility] [address] [place] [address], [facility] CBC COMPLETE BLOOD COUNTon 0 - Erythrocyte distribution width (RBC) [Ratio] 13.9 % Normal 11.5-15.0 The [facility] Comment on above: Order Comment: No: D o not add to previous draw Performed By: #### 5 0103 #### [facility] [address] [place] [address], [facility] Hematocrit (Bld) [Volume fraction] 50.0 % Normal 39.0-50.0 The [facility] Comment on above: Order Comment: No: D o not add to previous draw Performed By: #### 5 0103 #### [facility] [address] [place] [address], [facility] Hemoglobin (Bld) [Mass/Vol] 16.0 g/dL Normal 13.0-17.0 The [facility] Comment on above: Order Comment: No: D o not add to previous draw Performed By: #### 5 0103 #### [facility] [address] [place] [id number], [facility] MCH (RBC) [Entitic mass] 27.5 pg Normal 27.0-33.0 The [facility] Comment on above: Order Comment: No: D o not add to previous draw Performed By: #### 5 0103 #### [facility] [address] [place] [address], [facility] MCHC (RBC) [Mass/Vol] 32.0 g/dL Normal 32.0-35.0 The [facility] Comment on above: Order Comment: No: D o not add to previous draw Performed By: #### 5 0103 #### [facility] [address] [place] [id number], [facility] MCV (RBC) [Entitic vol] 85.9 fL Normal 82.0-98.0 The [facility] Comment on above: Order Comment: No: D o not add to previous draw Performed By: #### 5 0103 #### [facility] [address] [place] [id number], [facility] Nucleated RBC/100 WBC (Bld) [Ratio] 0 % Normal 0-0 The [facility] Comment on above: Order Comment: No: D o not add to previous draw Performed By: #### 5 0103 #### [facility] [address] [place] [address], [facility] PLAT CNT 249 10*3/uL Normal 150-400 The [facility] Comment on above: Order Comment: No: D o not add to previous draw Performed By: #### 5 0103 #### [facility] [address] [place] [address], [facility] RBC (Bld) [#/Vol] 5.82 10*6/uL High 4.20-5.70 [facility] Comment on above: Order Comment: No: D o not add to previous draw Performed By: #### 5 0103 #### [facility] [address] [place] [address], [facility] WBC (Bld) [#/Vol] 15.85 10*3/uL High 4.00-10.60 The [facility] Comment on above: Order Comment: No: D o not add to previous draw Performed By: #### 5 0103 #### [facility] [address] [facility] [address] Operative Reporton 9 Operative Report MR#: [id number] I [facility] Pt. Name: Matty Garces Room #: [id number] Discharge Date: Birthdate: 1970 OPERATIVE REPORT DATE OF SURGERY: 01/30/2019 SURGEON: Luciano Vieira M.D. 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 POSTOPERATIVE DIAGNOSIS: Failed instrumentation at C6-7 on the right. CLERICAL SUPPORT: ADENIKE Lugo. ANESTHESIA: Endotracheal, Hogan. PROCEDURES: Redo [...] P/Luciano Vieira M.D. Date Trans: 01/31/2019 02:31 Eze/sasha [id number] cc: Venus Mendez M.D. [address] [place] [address] Normal The [facility] CERVICAL SPINE 2 OR 3 Son 01-30-2019 CERVICAL SPINE 2 OR 3 S [facility] Department of Radiology [address] [place] [address] Patient Name: MATTY GARCES : 1970 Sex: M Age: Race: White Pt. Location: Patient Status: O Ordered Date: 01/30/2019 7:05:00 AM Completed Date: 01/30/2019 04:12 PM Requesting Provider: LUCIANO VIEIRA Attending Provider: LUCIANO VIEIRA Report Copy To: Signs & Symptoms: C6-7 ACDF History: C6-7 ACDF Comments: C6-7 ACDF Exam: CERVICAL SPINE 2 OR 3 [facility] CERVICAL SPINE 2 OR 3 S 01/30/2019 4:12 PM EDT SIGNS AND SYMPTOMS: C6-7 ACDF TECHNOLOGIST COMMENTS: Intra op ACDF C6-7 with , 30 sec of fluoro time used QUESTION FOR THE RADIOLOGIST: C6-7 ACDF PROTOCOLS: AP, Odontoid and Lateral views were obtained. COMPARISON: None FINDINGS: 5 images were obtained. Fluoroscopic time as utilized above. IMPRESSION: For documentation Electronically signed by:Jusuts Montano. Transcribed by: [email or web address], User Resident: Electronically Signed by: JUSTUS MONTANO @ 01/30/2019 04:18 PM Normal The [facility] Comment on above: Order Comment: C6-7 ACDF POC GLUCOSE LABon 01-30-2019 Glucose [Mass/Vol] 106 mg/dL High 70-100 The [facility] Comment on above: Performed By: #### 5 0103 #### [facility] [address] [facility]. [address] *MRSA/MSSA DNA NASALon 01-23 *MRSA/MSSA DNA NASAL Clinical Report: (D ) Specimen: NASAL SWAB Collected: 01/23/2019 15:02 Status: Final Last Updated: 01/23/2019 20:14 MSSA DNA (Final) Methicillin Susceptible Staphylococcus aureus DNA Detected MRSA DNA (Final) No Methicillin Resistant Staphylococcus aureus DNA Detected Normal The [facility] Comment on above: Performed By: #### 5 0103 #### [facility] [address] [facility]. [address] APTTon 01-23-2019 aPTT Coag (Bld) [Time] 35.4 s High 25.0-35.0 The [facility] Comment on above: Result Comment: ALL RESULTS [...] THIS PURPOSE. Performed By: #### 5 7307, 36621 #### [facility] [address] [place] [address], [facility] BASIC METABOLIC PANELon 01-11 Calcium [Mass/Vol] 9.5 mg/dL Normal 8.6-10.3 The [facility] Comment on above: Performed By: #### 5 7307, 24835 #### [facility] [address] [facility] [place] [address], [facility] Chloride [Moles/Vol] 101 mmol/L Normal 98-107 The [facility] Comment on above: Performed By: #### 5 7306, 93041 #### [facility] [address] [place] [address], [place] CO2 [Moles/Vol] 29 mmol/L Normal 21-31 [facility] Comment on above: Performed By: #### 5 7306, 66556 #### [facility] [address] [place] [address], [place] Creatinine [Mass/Vol] 1.08 mg/dL Normal 0.70-1.30 [facility] Comment on above: Performed By: #### 5 7306, 01352 #### [facility] [address] [place] [address], [place] GFR/1.73 sq M predicted among blacks MDRD (S/P/Bld) [Vol rate/Area] mL/min/{1.73_m2} Normal >60 The [facility] Comment on above: Performed By: #### 5 7306, 92187 #### [facility] [address] [place] [address], [place] GFR/1.73 sq M predicted among non-blacks MDRD (S/P/Bld) [Vol rate/Area] mL/min/{1.73_m2} Normal >60 The [facility] Comment on above: Performed By: #### 5 73, 10822 #### [facility] [address] [place] [address], [place] Glucose [Mass/Vol] 87 mg/dL Normal 70-100 [facility] Comment on above: Performed By: #### 5 7307, 21578 #### [facility] [address] [place] [address], [place] Potassium [Moles/Vol] 4.0 mmol/L Normal 3.5-5.1 [facility] Comment on above: Performed By: #### 5 73, 24032 #### [facility] [address] [facility] [place] [address], [facility] Sodium [Moles/Vol] 137 mmol/L Normal 136-145 [facility] Comment on above: Performed By: #### 5 7307, 90103 #### [facility] [address] [facility] [place] [address], [facility] Urea nitrogen [Mass/Vol] 12 mg/dL Normal 7-25 [facility] Comment on above: Performed By: #### 5 73, 75287 #### [facility] [address] [facility] [place] [address], [facility] CBC W/DIFFon 01-23-2019 ABS BASOPHILS 0.1 10*3/uL Normal 0.0-0.2 The [facility] Comment on above: Performed By: #### 5 73Al, 05071 #### [facility] [address] [facility]. [address] ABS IMM GRANS 0.0 10*3/uL Normal 0.0-0.2 The [facility] Comment on above: Performed By: #### 5 73, 96003 #### [facility] [address] [facility] [place] [address], [facility] ABS NEUTROPHILS 5.3 10*3/uL Normal 1.6-7.6 The [facility] Comment on above: Performed By: #### 5 7307, 26512 #### [facility] [address] [facility] [place] [address], [facility] Basophils/100 WBC (Bld) 0.9 % Normal 0.0-1.0 The [facility] Comment on above: Performed By: #### 5 7307, 36246 #### [facility] [address] [facility] [place] [address], [facility] Eosinophils (Bld) [#/Vol] 0.2 10*3/uL Normal 0.0-0.5 The [facility] Comment on above: Performed By: #### 5 7306, 77823 #### [facility] [address] [place] [address], [facility] Eosinophils/100 WBC (Bld) 2.3 % Normal 0.0-6.0 The [facility] Comment on above: Performed By: #### 7306, 81203 #### [facility] [address] [place] [id number], [facility] Erythrocyte distribution width (RBC) [Ratio] 13.8 % Normal 11.5-15.0 The [facility] Comment on above: Performed By: #### 7306, 62870 #### [facility] [address] [place] [address], [facility] Hematocrit (Bld) [Volume fraction] 49.6 % Normal 39.0-50.0 The [facility] Comment on above: Performed By: #### 7306, 87818 #### [facility] [address] [place] [id number], [facility] Hemoglobin (Bld) [Mass/Vol] 16.4 g/dL Normal 13.0-17.0 [facility] Comment on above: Performed By: #### 5 7306, 24475 #### [facility] [address] [place] [address], [facility] IMMATURE GRANS 0.5 % Normal 0.0-1.0 The [facility] Comment on above: Performed By: #### 5 7306, 72029 #### [facility] [address] [place] [address], [facility] Lymphocytes (Bld) [#/Vol] 1.2 10*3/uL Normal 1.2-4.0 The [facility] Comment on above: Performed By: #### 5 7306, 43297 #### [facility] [address] [place] [address], [place] Lymphocytes/100 WBC (Bld) 16.6 % Low 20.0-45.0 The [facility] Comment on above: Performed By: #### 5 7306, 94797 #### [facility] [address] [place] [address], [facility] MCH (RBC) [Entitic mass] 27.8 pg Normal 27.0-33.0 The [facility] Comment on above: Performed By: #### 5 7306, 86349 #### [facility] [address] MCHC (RBC) [Mass/Vol] 33.1 g/dL Normal 32.0-35.0 [facility] Comment on above: Performed By: #### 5 7306, 18133 #### [facility] [address] [place] [address], [facility] MCV (RBC) [Entitic vol] 84.2 fL Normal 82.0-98.0 The [facility] Comment on above: Performed By: #### 5 7306, 21889 #### [facility] [address] [facility] [place] [address], [facility] Monocytes (Bld) [#/Vol] 0.7 10*3/uL Normal 0.1-1.0 The [facility] Comment on above: Performed By: #### 5 7306, 75267 #### [facility] [address] [place] [address], [facility] MONOS 9.4 % Normal 5.0-12.0 The [facility] Comment on above: Performed By: #### 5 7306, 95442 #### [facility] [address] [place] [address], [facility] Neutrophils/100 WBC (Bld) 70.3 % Normal 40.0-72.0 The [facility] Comment on above: Performed By: #### 5 7306, 80013 #### [facility] [address] [place] [address], [facility] Nucleated RBC/100 WBC (Bld) [Ratio] 0 % Normal 0-0 The [facility] Comment on above: Performed By: #### 5 7307, 89831 #### [facility] [address] [place] [address], [facility] PLAT CNT 235 10*3/uL Normal 150-400 The [facility] Comment on above: Performed By: #### 5 7307, 47242 #### [facility] [address] RBC (Bld) [#/Vol] 5.89 10*6/uL High 4.20-5.70 The [facility] Comment on above: Performed By: #### 5 7307, 44824 #### [facility] [address] WBC (Bld) [#/Vol] 7.48 10*3/uL Normal 4.00-10.60 The [facility] Comment on above: Performed By: #### 5 7307, 14079 #### [facility] [address] PROTHROMBIN TIMEon 9 INR Coag (PPP) [Relative time] 1.12 {INR} Normal 0.91-1.16 The [facility] Comment on above: Result Comment: ACCC P [...] CHEST 1995;108:231S-246S. Performed By: #### 5 7307, 82583 #### [facility] [address] PT Coag (PPP) [Time] 14.4 s Normal 12.3-14.8 The [facility] Comment on above: Result Comment: ALL RESULTS MUST BE INTERPRETED WITH RESPECT TO BLOOD DRAWING ARTIFACT OR DILUTION ERROR OF ANTICOAGULANT AT THE TIME OF SAMPLING. Performed By: #### 5 7307, 01904 #### [facility] [address] TYPE AND SCREENon 01-23-2019 ABO INTERPRETATION A Normal [facility] Comment on above: Performed By: #### 5 7307, 54542 #### [facility] [address] [place] [address], [facility] RH INTERPRETATION Positive Normal The [facility] Comment on above: Performed By: #### 5 7307, 25098 #### [facility] [address] [facility]. [address] 3D CERVICAL SPINE WO CONT RASTon 01-12-2019 CT 3D CERVICAL SPINE WO CONTRAST [facility] Department of Radiology [address] [place] [phone] Patient Name: MATTY GARCES : 1970 Sex: M Age: Race: White Pt. Location: Patient Status: D Ordered Date: 01/10/2019 2:15:00 PM Completed Date: 01/12/2019 10:32 AM Requesting Provider: LUCIANO VIEIRA Attending Provider: LUCIANO VIEIRA Report Copy To: VENUS MENDEZ Signs & Symptoms: M48.02 Spinal stenosis, cervical region I10 History: Althea para auth # [id number] 01/10/19-02/09/19 [id number] *er Comments: Exam: CT 3D CERVICAL SPINE [...] incomplete Electronically signed by:Ten Garland. Transcribed by: [email or web address], User Resident: Electronically Signed by: TEN GARLAND @ 01/13/2019 09:18 AM [place] [facility] CERVICAL SPINE 2 OR 3 [facility] 01-05-2019 CERVICAL SPINE 2 OR 3 [facility] Department of Radiology [address] [place] [phone] Patient Name: MATTY GARCES : 1970 Sex: M Age: Race: White Pt. Location: Patient Status: O Ordered Date: 01/05/2019 9:00:00 AM Completed Date: 01/05/2019 09:06 AM Requesting Provider: LUCIANO VIEIRA Attending Provider: LUCIANO VIEIRA Report Copy To: Signs & Symptoms: M48.02 Spinal stenosis, cervical region I10 History: Althea Comments: , , , Ordering Provider - LUCIANO VIEIRA MD , Exam: CERVICAL SPINE 2 OR 3 [facility] CERVICAL SPINE 2 OR 3 S [...] findings. Electronically signed by:Ten Garland. Transcribed by: [email or web address], User Resident: SHELLY DELA CRUZ Electronically Signed by: TEN GARLAND @ 01/05/2019 12:37 PM I personally read this/these film(s) with this resident Normal The [facility] Comment on above: Order Comment: , , = ========= , Ordering Provider - LUCIANO VIEIRA MD , CERVICAL SPINE 2 OR 3 [facility] 08-30-2018 CERVICAL SPINE 2 OR 3 S [facility] Department of Radiology [address] [place] [phone] Patient Name: MATTY GARCES : 1970 Sex: M Age: Race: White Pt. Location: Patient Status: O Ordered Date: 08/30/2018 9:35:00 AM Completed Date: 08/30/2018 09:43 AM Requesting Provider: LUCIANO VIEIRA Attending Provider: LUCIANO VIEIRA Report Copy To: VENUS MENDEZ Signs & Symptoms: M50.90 Cervical disc disorder, unsp, unspecified cervical region I10 History: Althea Comments: , POST OP XRAY AP/LAT ONLY [...] findings. Electronically signed by:Bella King. Transcribed by: [email or web address], User Resident: RYAN HEAD Electronically Signed by: BELLA KING @ 08/30/2018 05:45 PM I personally read this/these film(s) with this resident Normal The [facility] Comment on above: Order Comment: , POS T OP XRAY AP/LAT ONLY , POST OP XRAY AP/LAT ONLY , , , Ordering Provider - LUCIANO VIEIRA MD , Operative Reporton 8 Operative Report MR#: [id number] I [facility] Pt. Name: Matty Garces Room #: [id number] Discharge Date: Birthdate: 1970 OPERATIVE REPORT DATE OF SURGERY: 08/17/2018 SURGEON: Luciano Vieira M.D. PREOPERATIVE DIAGNOSIS: Herniated cervical disk at C6-7. POSTOPERATIVE DIAGNOSIS: Herniated cervical disk at C6-7. CLERICAL SUPPORT: ADENIKE Larios. ANESTHESIA: Endotracheal, Braida. PROCEDURE: Anterior [...] Vieira M.D. Date Trans: 08/17/2018 11:25 P/sasha [id number] cc: Venus Mendez M.D. [address] [facility] [phone] [place] [facility] CERVICAL SPINE 2 OR 3 [facility] 08-17-2018 CERVICAL SPINE 2 OR 3 [facility] Department of Radiology [address] [place] [address] Patient Name: MATTY GARCES : 1970 Sex: M Age: Race: White Pt. Location: Patient Status: I Ordered Date: 08/17/2018 8:30:00 AM Completed Date: 08/17/2018 11:49 AM Requesting Provider: LUCIANO VIEIRA Attending Provider: LUCIANO VIEIRA Report Copy To: Signs & Symptoms: C6-7 ACDF with History: C6-7 ACDF with Comments: C6-7 ACDF with Exam: CERVICAL SPINE 2 OR 3 [facility] CERVICAL SPINE 2 OR 3 S 08/17/2018 11:49 AM EST SIGNS AND SYMPTOMS: [...] findings. Electronically signed by:Bernice Hoyt. Transcribed by: [email or web address], User Resident: EMILE TINAJERO Electronically Signed by: BERNICE HOYT @ 08/18/2018 01:06 PM I personally read this/these film(s) with this resident Normal The [facility] Comment on above: Order Comment: C6-7 ACDF with POC GLUCOSE LABon 08-17-2018 Glucose [Mass/Vol] 113 mg/dL High 70-100 The [facility] Comment on above: Performed By: #### 8 5499 #### [facility] [address] RBC'S 2 UNITSon 08-17-2018 CROSSMATCH INTERP 1 COMP Normal [facility] Comment on above: Performed By: #### 8 6002 #### [facility] [address] CROSSMATCH INTERP 2 COMP Normal [facility] Comment on above: Performed By: #### 8 6002 #### [facility] [address] PRODUCT CODE 1 E0336 Normal The [facility] Comment on above: Performed By: #### 8 6002 #### [facility] [address] PRODUCT CODE 2 E0336 Normal The [facility] Comment on above: Performed By: #### 8 6002 #### [facility] [address] PRODUCT STATUS 1 RE Normal The [facility] Comment on above: Result Comment: Resu lt changed by IF on 08/20/2018 07:48. The previous value was XM. Performed By: #### 8 6002 #### [facility] [address] [place] [address], [facility] PRODUCT STATUS 2 RE Normal [facility] Comment on above: Result Comment: Resu lt changed by IF on 08/20/2018 07:48. The previous value was XM. Performed By: #### 8 6002 #### [facility] [address] [place] [address], [place] UNIT ABO 1 A Normal The [facility] Comment on above: Performed By: #### 8 6002 #### [facility] [address] [place] [address], [facility] UNIT ABO 2 A Normal The [facility] Comment on above: Performed By: #### 8 6002 #### [facility] [address] [place] [address], [facility] UNIT ID 1 [id number] Normal The [facility] Comment on above: Performed By: #### 8 6002 #### [facility] [address] [place] [address], [facility] UNIT ID 2 [id number] Normal The [facility] Comment on above: Performed By: #### 8 6002 #### [facility] [address] [facility] [place] [address], [place] UNIT RH 1 Positive Normal The [facility] Comment on above: Performed By: #### 8 6002 #### [facility] [address] [place] [address], [place] UNIT RH 2 Positive Normal [facility] Comment on above: Performed By: #### 8 6002 #### [facility] [address] [facility] [address], [facility] *MRSA/MSSA CULTUREon 018 *MRSA/MSSA CULTURE Clinical Report: (D) Specimen: NASAL SWAB Collected: 08/02/2018 12:37 Status: Final Last Updated: 08/03/2018 14:26 ISO (Final) No Methicillin Resistant Staphylococcus aureus Isolated (MRSA) ISO (Final) Methicillin Sensitive Staphylococcus aureus (MSSA) Isolated Normal The [facility] Comment on above: Performed By: #### 3 1302 #### [facility] [address] APTTon 08-02-2018 aPTT Coag (Bld) [Time] 31.2 s Normal 25.0-35.0 The [facility] Comment on above: Result Comment: ALL RESULTS [...] THIS PURPOSE. Performed By: #### 5 7307, 74758 #### [facility] [address] BASIC METABOLIC PANELon 07-15 Calcium [Mass/Vol] 9.4 mg/dL Normal 8.6-10.3 [facility] Comment on above: Performed By: #### 0 0071 #### [facility] [address] [place] [address], [facility] Chloride [Moles/Vol] 103 mmol/L Normal 98-107 [facility] Comment on above: Performed By: #### 0 0071 #### [facility] [address] [place] [address], [facility] CO2 [Moles/Vol] 29 mmol/L Normal 21-31 [facility] Comment on above: Performed By: #### 0 0071 #### [facility] [address] [place] [address], [facility] Creatinine [Mass/Vol] 1.06 mg/dL Normal 0.70-1.30 The [facility] Comment on above: Performed By: #### 0 0071 #### [facility] [address] [place] [address], [facility] GFR/1.73 sq M predicted among blacks MDRD (S/P/Bld) [Vol rate/Area] mL/min/{1.73_m2} Normal >60 The [facility] Comment on above: Performed By: #### 0 0071 #### [facility] [address] [place] [address], [facility] GFR/1.73 sq M predicted among non-blacks MDRD (S/P/Bld) [Vol rate/Area] mL/min/{1.73_m2} Normal >60 The [facility] Comment on above: Performed By: #### 0 0071 #### [facility] [address] [place] [address], [facility] Glucose [Mass/Vol] 84 mg/dL Normal 70-100 [facility] Comment on above: Performed By: #### 0 0071 #### [facility] [address] [place] [address], [facility] Potassium [Moles/Vol] 4.0 mmol/L Normal 3.5-5.1 The [facility] Comment on above: Performed By: #### 0 0071 #### [facility] [address] [place] [address], [facility] Sodium [Moles/Vol] 140 mmol/L Normal 136-145 [facility] Comment on above: Performed By: #### 0 0071 #### [facility] [address] [place] [address], [facility] Urea nitrogen [Mass/Vol] 20 mg/dL Normal 7-25 The [facility] Comment on above: Performed By: #### 0 0071 #### [facility] [address] [place] [address], [place] CBC W/DIFFon 08-02-2018 ABS BASOPHILS 0.1 10*3/uL Normal 0.0-0.2 The [facility] Comment on above: Performed By: #### 5 0103 #### [facility] [address] [facility] [address], [facility] ABS IMM GRANS 0.1 10*3/uL Normal 0.0-0.2 The [facility] Comment on above: Performed By: #### 5 0103 #### [facility] [address] [place] [address], [facility] ABS NEUTROPHILS 4.2 10*3/uL Normal 1.6-7.6 [facility] Comment on above: Performed By: #### 5 0103 #### [facility] [address] [facility] [place] [address], [facility] Basophils/100 WBC (Bld) 1.3 % High 0.0-1.0 The [facility] Comment on above: Performed By: #### 5 0103 #### [facility] [address] [facility] [place] [address], [facility] Eosinophils (Bld) [#/Vol] 0.1 10*3/uL Normal 0.0-0.5 The [facility] Comment on above: Performed By: #### 5 0103 #### [facility] [address] [address], [facility] Eosinophils/100 WBC (Bld) 2.0 % Normal 0.0-6.0 The [facility] Comment on above: Performed By: #### 5 0103 #### [facility] [address] Erythrocyte distribution width (RBC) [Ratio] 13.6 % Normal 11.5-15.0 The [facility] Comment on above: Performed By: #### 5 3 #### [facility] [address] [place] [address], [facility] Hematocrit (Bld) [Volume fraction] 44.3 % Normal 39.0-50.0 The [facility] Comment on above: Performed By: #### 5 0103 #### [facility] [address] [facility] [place] [address], [facility] Hemoglobin (Bld) [Mass/Vol] 15.1 g/dL Normal 13.0-17.0 The [facility] Comment on above: Performed By: #### 5 3 #### [facility] [address] [facility] [place] [address], [facility] IMMATURE GRANS 1.1 % High 0.0-1.0 The [facility] Comment on above: Performed By: #### 3 #### [facility] [address] [place] [address], [facility] Lymphocytes (Bld) [#/Vol] 1.2 10*3/uL Normal 1.2-4.0 The [facility] Comment on above: Performed By: #### 5 3 #### [facility] [address] Lymphocytes/100 WBC (Bld) 18.3 % Low 20.0-45.0 The [facility] Comment on above: Performed By: #### 5 3 #### [facility] [address] [place] [address], [facility] MCH (RBC) [Entitic mass] 29.0 pg Normal 27.0-33.0 The [facility] Comment on above: Performed By: #### 5 3 #### [facility] [address] [facility] [place] [address], [facility] MCHC (RBC) [Mass/Vol] 34.1 g/dL Normal 32.0-35.0 The [facility] Comment on above: Performed By: #### 5 3 #### [facility] [address] [facility] [place] [address], [facility] MCV (RBC) [Entitic vol] 85.0 fL Normal 82.0-98.0 The [facility] Comment on above: Performed By: #### 5 0103 #### [facility] [address] [place] [address], [facility] Monocytes (Bld) [#/Vol] 0.7 10*3/uL Normal 0.1-1.0 The [facility] Comment on above: Performed By: #### 102 #### [facility] [address] [place] [address], [facility] MONOS 11.1 % Normal 5.0-12.0 The [facility] Comment on above: Performed By: #### 102 #### [facility] [address] [address], [facility] Neutrophils/100 WBC (Bld) 66.2 % Normal 40.0-72.0 The [facility] Comment on above: Performed By: #### 102 #### [facility] [address] [place] [address], [facility] Nucleated RBC/100 WBC (Bld) [Ratio] 0 % Normal 0-0 The [facility] Comment on above: Performed By: #### 102 #### [facility] [address] [facility] [place] [address], [facility] PLAT CNT 179 10*3/uL Normal 150-400 The [facility] Comment on above: Performed By: #### 102 #### [facility] [address] [facility] [place] [address], [facility] RBC (Bld) [#/Vol] 5.21 10*6/uL Normal 4.20-5.70 The [facility] Comment on above: Performed By: #### 102 #### [facility] [address] [facility] [place] [address], [facility] WBC (Bld) [#/Vol] 6.39 10*3/uL Normal 4.00-10.60 The [facility] Comment on above: Performed By: #### 3 #### [address] CERVICAL SPINE 4 OR 5 VIEWSo n 08-02-2018 CERVICAL SPINE 4 OR 5 VIEWS [facility] Department of Radiology [address] [place] [id number] Patient Name: MATTY GARCES : 1970 Sex: M Age: Race: White Pt. Location: Patient Status: D Ordered Date: 08/02/2018 1:05:00 PM Completed Date: 08/02/2018 01:29 PM Requesting Provider: LUCIANO VIEIRA Attending Provider: LUCIANO VIEIRA Report Copy To: VENUS MENDEZ Signs & Symptoms: Z01.89 Encounter for other specified special examinations I10 History: Althea Comments: , PREOP XRAY AP/LAT \EANDE\ FLEX/EX [...] findings. Electronically signed by:Bella King. Transcribed by: [email or web address], User Resident: EMILE TINAJERO Electronically Signed by: BELLA KING @ 08/03/2018 11:58 AM I personally read this/these film(s) with this resident Normal The [facility] Comment on above: Order Comment: , PRE OP XRAY AP/LAT \EANDE\ FLEX/EX , PREOP XRAY AP/LAT \EANDE\ FLEX/EX , , , Ordering Provider - LUCIANO VIEIRA MD , PROTHROMBIN TIMEon 8 INR Coag (PPP) [Relative time] 1.15 {INR} Normal 0.91-1.16 The [facility] Comment on above: Result Comment: ACCC P [...] CHEST 1995;108:[id number]. Performed By: #### 5 7307, [id number] #### [facility] [address] [place] [address], [facility] PT Coag (PPP) [Time] 14.7 s Normal 12.3-14.8 The [facility] Comment on above: Result Comment: ALL RESULTS MUST BE INTERPRETED WITH RESPECT TO BLOOD DRAWING ARTIFACT OR DILUTION ERROR OF ANTICOAGULANT AT THE TIME OF SAMPLING. Performed By: #### 5 7307, [id number] #### [facility] [address] [place] [address], [facility] TYPE AND SCREENon 08-02-2018 ABO INTERPRETATION A Normal The [facility] Comment on above: Order Comment: 2 uni ts 2 units 2 units 2 units 2 units Performed By: #### 6 2586 #### [facility] [address] [place] [address], [facility] RH INTERPRETATION Positive Normal The [facility] Comment on above: Order Comment: 2 uni ts 2 units 2 units 2 units 2 units Performed By: #### 6 2586 #### [facility] [address] [place] [id number], [facility] URINALYSIS REFLEXon 08-02-20 18 Appearance (U) CLEAR Normal CLEAR The [facility] Comment on above: Performed By: #### 3 0965 #### [facility] [address] [place] [id number], [facility] Bilirubin [Mass/Vol] Negative Normal NEGATIVE The [facility] Comment on above: Performed By: #### 3 0928 #### [facility] [address] [place] [address], [facility] BLOOD Negative Normal NEGATIVE The [facility] Comment on above: Performed By: #### 3 0965 #### [facility] [address] [place] [address], [facility] Color (U) YELLOW Normal YELLOW The [facility] Comment on above: Performed By: #### 3 0965 #### [facility] [address] [place] [address], [facility] Glucose [Mass/Vol] 150 mg/dL Abnormal NEGATIVE [facility] Comment on above: Performed By: #### 3 0965 #### [facility] [address] [place] [address], [facility] KETONE Negative Normal NEGATIVE The [facility] Comment on above: Performed By: #### 3 0965 #### [facility] [address] [place] [address], [place] Negative Normal NEGATIVE The [facility] Comment on above: Performed By: #### 3 0965 #### [facility] [address] [facility] [place] [address], [facility] MICRO NOT DONE negative chemical reactions unless requested in original order Normal The [facility] Comment on above: Performed By: #### 3 0965 #### [facility] [address] [facility] [place] [address], [facility] Nitrite Ql (U) Negative Normal NEGATIVE The [facility] Comment on above: Performed By: #### 3 0965 #### [facility] [address] [facility] [place] [address], [facility] pH (Bld) 5.0 Normal 5.0-8.0 The [facility] Comment on above: Performed By: #### 3 0965 #### [facility] [address] [facility] [place] [address], [facility] Protein (U) [Mass/Vol] Negative Normal NEGATIVE The [facility] Comment on above: Performed By: #### 3 0965 #### [facility] [address] [place] [address], [facility] SPEC GRAV 1.024 High 1.015-1.020 The [facility] Comment on above: Performed By: #### 3 0965 #### [facility] [place] [address], [facility] Vital Signs Date Time Vital Sign Value Performing Clinician Molly bunn 02-25-2022 10:30-0400 Blood Pressure Location Viola Lue [facility] 02-25-2022 10:30-0400 Diastolic blood pressure 107 mm[Hg] Viola Lue [facility] [employer] 02-25-2022 10:30-0400 Heart rate 74 /min Viola Lue [facility] [employer] 02-25-2022 10:30-0400 Respiratory rate 16 /min Viola Lue [facility] [employer] 02-25-2022 10:30-0400 Systolic blood pressure 157 mm[Hg] Viola Lue [facility] [employer] Encounters Encounter Date Encounter Type Care Provider Facility Start: 09-27-2023 End: 09-27-2023 ambulatory RUBÉN GEIGER Not Available Start: 08-30-2023 End: 08-31-2023 [facility] Start: 07-12-2023 End: 07-13-2023 ambulatory Diallo Beauchamp MD Facility: [facility] Start: 06-14-2023 End: 06-15-2023 ambulatory Diallo Beauchamp MD Facility:[facility] Start: 03-11-2023 End: 03-11-2023 ambulatory Rubén Geiger Facility:[facility] Start: 12-06-2022 End: 12-06-[address] VENUS MENDEZ . Facility: Start: 12-05-2022 Encounter for genera l adult medical examination without abnormal findings DR VENUS MENDEZ . The Start: 12-01-2022 End: 12-02-[address] VENUS MENDEZ . Facility:[facility] Start: 12-01-2022 End: 12-02-2022 Encounter for general adult medical examination without abnormal findings DR VENUS MENDEZ . Facility:[facility] Start: 07-10-2022 End: 07-11-[address] VENUS MENDEZ . Facility:[facility] Start: 03-26-2022 End: 03-26-[address] VENUS MENDEZ . Facility: Start: 03-13-2022 End: 03-14-[address] VENUS MENDEZ . Facility:[facility] Start: 02-25-2022 End: 02-25-2022 Patient encounter procedure Viola Grullon [facility] Start: 01-04-2022 End: 01-05-[address] VENUS MENDEZ . Facility: Start: 01-30-2019 End: 02-01-2019 Evaluation and management of inpatient PROVIDER UNKNOWN Facility:[facility] Start: 08-17-2018 End: 08-18-2018 Patient encounter procedure PROVIDER UNKNOWN Facility:[facility] Procedures Date Procedure Procedure Detail Performing Clinician Start: 12-01-[address] FRANKLIN MENDEZ . Comment on above: Performed By: #### P [facility] #### Laboratory [address] [place] [address] Dr. Shabnam Rae Start: 01-30-2019 FUSION CERV JT W INT BD FUS DEV, ANT APPR A COL, OPEN [facility] Start: 01-30-2019 REMOVAL OF INT FIX F ROM CERVCAL VERTEBRA, OPEN APPROACH [facility] Start: 01-23-2019 Antibody screen PROVIDE R UNKNOWN Comment on above: Performed By: #### 5 7307, [id number] #### [facility] [address] [facility]. [address] Start: 08-17-2018 ANESTH SPINE CORD SURGERY [...] units Performed By: #### 6 2586 #### [facility] [address] Colonoscopy Viola Grullon Hemorrhoids (disorder) [facility] Hernia of abdominal cavity (disorder) [facility] Tonsillectomy [facility] Payers Date Payer Category Payer Self-pay 2022 Medicaid [id number] 2022 Unknown 1970 Unknown [id number] 2.16.8 [id number] 1970 Unknown [id number] 2.16.8 [id number] 1970 Unknown [id number] 2.16.84 0.1.698604.3.579.2.593 1970 Unknown [id number] 2.16.84 0.1.702474.3.579.2.593 1970 Unknown [id number] 2.16.84 0.1.776249.3.579.2.593 1970 Unknown [id number] 2.16.84 0.1.686390.3.579.2.593 1970 Unknown [id number] 2.16.84 0.1.552767.3.579.2.593 1970 Unknown [id number] 2.16.84 0.1.998080.3.579.2.593 1970 Unknown [id number] 2.16. 840.1.201984.3.579.2.196 1970 Unknown [id number] 2.16. 840.1.029026.3.579.2.196 1970 Unknown [id number] 2.16. 840.1.731435.3.579.2.196 1970 Unknown [id number] 2.16.84 0.1.441246.3.579.2.1259 1960 Unknown [id number] Unknown [id number] Unknown [id number] 2.16.8 40.1.325472.3.579.2.531 Social History Date Type Detail Facility Tobacco smoking status No Smoking Status Entered [facility] Sex Assigned At Male [facility] Functional Status Date Assessment Result Facility 02-25-2022 Functional Status N/A [facility] Progress note 06-09-2023 Note Date & Type Note Facility 06-09-2023 Note [facility] Continue GDMT- Diuretic therapy Monitor daily weights, I&O, fluid restriction 1.5-2L/day, renal function and electrolytes- [facility] Clinical Note 03-26-2022 Note Date & Type [...] authenticated by: ALVINA CAICEDO Date: 2022-03-26 10:47 [facility] Discharge instructions 02-25-2022 Note Date & [...] Watch the hydrocele for any changes. Take [id number] and prescription medicines only as told by [...] 02/17/2011 Document Revised: 09/10/2018 Document Reviewed: 09/10/2018 [employer] Patient Education 2020 [employer]. Follow Up Care 01/28/2022 10:36:35 With:Mitchel DELGADO, [place] Gregorio, URO Address: When: Unknown [facility] Evaluation + Plan note Note Date & Type Note Facility Evaluation + Plan note No data available for this section [facility] Progress note Note Date & Type Note Facility Progress note No data available for this section [facility] Summary Purpose Family History No Family History [...] Records Found Hospital Course Note MR#: [id number] [facility] Pt. Name: Matty Garces Admitted: 01/30/2019 [...] section and content) DATE CREATED AUTHOR 07/19/2019 [facility] DATE CREATED AUTHOR AUTHOR'S ORGANIZ ATION 02/27/2022 [facility] DATE CREATED AUTHOR AUTHOR'S ORGANIZ ATION 12/08/2022 [facility] DATE CREATED AUTHOR AUTHOR'S ORGANIZ ATION 03/17/2023 [facility] DATE CREATED AUTHOR AUTHOR'S ORGANIZ ATION 06/17/2023 [facility] DATE CREATED AUTHOR AUTHOR'S ORGANIZ ATION 09/03/2023 [facility] DATE CREATED AUTHOR AUTHOR'S ORGANIZ ATION 09/27/2023 [facility] EPIC Care Team (unrecognized sect ion and content) Personnel Name: Venus Mendez MD Address: [address] [place] [address] FOR RECORDS PERTAINING TO PATIENTS WHO ARE [...] BE BASED ON THE PRIMARY CLINICAL RECORDS. [facility] [employer] provides no warranty or guarantee of the accuracy or completeness of information in this document.
[2023-10-18 07:42] VITALS: BP 138/88; PULSE 56; RESP 16; TEMP 36.4; O2SAT 100
[2023-10-18 08:23] VITALS: PULSE 76; RESP 18; O2SAT 93
[2023-10-18 08:24] VITALS: BP 140/67; RESP 18
[2023-10-18] MEDS: TRIAMCINOLONE ACETONIDE 40 MG/ML VIAL INJ (08:27)
[2023-10-18] MEDS: LIDOCAINE HCL 2% 400 MG/20 ML MDV 15 ML INJ (08:27)
[2023-10-18] MEDS: BUPIVACAINE HCL 0.25% PF 25 MG/10 ML VIAL INJ (08:27)
[2023-10-18 08:31] VITALS: BP 153/70; PULSE 73; O2SAT 96
--- NOTE | 2023-10-18 08:39 | P.ON_ITS ---
Date of procedure: 10/18/23 Pre-op diagnosis: Lumbar spondylosis Post-op diagnosis: same as pre-op Procedure: Procedure: Bilateral L4-5, L5-S1 radiofrequency ablation Medications: Bupivacaine 0.25% 6cc, lidocaine 2% 6cc, kenalog 80mg The patient was seen and examined in the preoperative holding area.? The site was marked.? Written informed consent was obtained and placed on the chart.? The patient was brought to the medical procedure unit and placed in the prone position.? A timeout was completed verifying correct patient, procedure, positioning, and special requirements.? The skin overlying the target points, the designated medial branch, were prepped and draped in the usual sterile fashion.? The target point was achieved with a 20-gauge 15 cm with a 10 mm curved active tip radiofrequency cannula under direct fluoroscopic visualization.? The needle was inserted at level L4 on the right side. Needle tip position was confirmed with lateral fluoroscopic position.? Motor stimulation was carried out at 2 Hz up to 5 volts with the absence of extremity activity.? This was repeated at level L5, S1 on right side.?? Sensory stimulation was carried out.? Concordant pain was realized at the above- mentioned sites.? Then radiofrequency lesioning was carried out times 90 seconds at 80 degrees times 2 lesions at each level.? The radiofrequency probe was removed prior to cannula removal.? The above-mentioned injectate was placed in 1 mL increments.? The needle was removed. The same procedure, with the same steps, was then completed on the left side at the same levels. Insertion sites were covered.? The patient was taken to the postoperative recovery area and monitored for an appropriate length of time before being found suitable for discharge in the company of a responsible adult. Anesthesia: Local Surgeon: Diallo Beauchamp Pathology: none sent Condition: stable Disposition: no change
== END 2023-10-18 08:46 | disposition home or self-care (01) ==
PROVIDERS: PCP Family Medicine; Visit Provider Anesthesiology
DX: M47.816 Spondylosis without myelopathy or radiculopathy, lumbar region (principal)
CPT/HCPCS: 64635; 64636; J0665; J3301

== ENCOUNTER 2023-10-29 11:03 | Outpatient (OUT) | payer MEDICAID, SELFPAY ==
--- NOTE | 2023-10-29 11:10 | XR_ITS ---
The [address] [address] Patient Name: MATTY WADE MRN: [id number] date: 1970 Sex: M Assigned Patient Location: [facility] Current Patient Location: Accession/Order Number: [id number] Exam Date: 10/29/2023 11:14 Report Date: 10/30/2023 07:38 At the request of: VENUS JAEGER Procedure: XR foot RT min 3V PROCEDURE: XR foot RT min 3V HISTORY: Right Foot Pain M79.671 ; toe pain COMPARISON: None. FINDINGS: BONES:Oblique fracture through distal metaphysis and diaphysis of the fourth toe proximal phalanx; no appreciable intra-articular extension. SOFT TISSUES:Soft tissue defect medial to the first toe interphalangeal joint suggestive of laceration. Several tiny punctate foreign bodies on the skin surface versus within the laceration. Thin metallic wire-like object projecting over soft tissues between the second third metatarsals. EFFUSION:None visible. OTHER: Negative. XR/XR foot RT min 3V IMPRESSION: 1. Acute, nondisplaced fracture of fourth proximal phalanx. 2. Skin laceration and small foreign bodies medial to the first toe interphalangeal joint. No bone involvement. 3. Wire-like metallic foreign body projecting over soft tissues between the second third metatarsals; nonspecific but suggestive of part of the staple. Electronically authenticated by: SHY MISTRY Date: 10/30/2023 07:38
--- OUTSIDE RECORDS SUMMARY | 2023-10-29 11:16 | XMS_ITS | CCD ---
Author Name Unknown Address [address] [place] [address] Organization [facility] Care Team Providers Care Supervisor Grower Name Role Phone UNKNOWN, PROVIDER Admitting Unavailable UNKNOWN, PROVIDER Attending Unavailable VENUS MENDEZ Referring Unavailable VENUS MENDEZ Primary Care Unavailable [place] Procedure Practitioner Unavailab le UNKNOWN, PROVIDER Surgeon Unavailable [place] Procedure Practitioner Unavailab le SANDRA BILL Surgeon Unavailable UNKNOWN, PROVIDER Admitting Unavailable UNKNOWN, PROVIDER Attending Unavailable VENUS MENDEZ Referring Unavailable VENUS MENDEZ Primary Care Unavailable [place] Procedure Practitioner Unavailab le UNKNOWN, PROVIDER Surgeon Unavailable Venus Mendez Primary Care Physician [phone] DONOVAN Admitting Unavailable HOY [...] DONOVAN Primary Care Unavailable EDDIEECK, DR JEWELL Bloom Admitting Unavailabl e AGA, [...] (1 source) Aspartame Drug Allergy 08-17-20 [facility] (1 source) avoid; Translations: [Unknown] Propensity to adverse reactions (disorder) 08-17-20 [facility] (1 source) vitamin B12; Translations: [cyanocobalamin] Drug Allergy Unknown (qualifier value) [facility] (1 source) Acetaminophen / HYDROcodone Drug Allergy [facility] (1 source) Corticosteroids Drug allergy (disorder) [facility] (1 source) fentaNYL Drug Allergy [facility] (1 source) Misc-Food; Translations: [Misc-Food] Food allergy (disorder) [facility] (1 source) Corticosteroids Drug allergy (disorder) 05-14-20 [facility] Medications Current Medications Medication Drug [...] 3 Chronic Other aftercare (1 source) 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; 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] Onset: 3 Episodic Other aftercare (1 source) Other jail (current) drug therapy; Translations: [OTH [facility] CURRENT DRUG THERAPY] Onset: 3 Episodic Other [...] spine 5V*on 02-12 XR cervical spine 5V* [facility] [address] [address] XRay Report Signed Patient: Matty Garces MR#: [id number] 97 : 1970 Acct:[id number] Age/Sex: 52 / M ADM Date: 03/11/23 Loc: ICXD Room: Type: [facility] Attending Dr: Rubén Geiger MD Copies to: [...] Crow Contreras M.D.03/11/2023 3:48 PM Dictation Location: [place] [address] Transcribed By: [facility] 03/11/23 1548 Dictated By: Crow Contreras DO 03/11/23 1544 Signed By: 03/11/[address] [facility] CT CSPINE WO CONon CT CSPINE WO [...] ANGEL SAID Date: 2022-12-06 06:37 Normal [facility] CT FACIAL BONES WO CONon CT FACIAL [...] ANGEL SAID Date: 2022-12-06 06:41 Normal [facility] CT HEAD WO CONon 12-06-2022 CT HEAD [...] ANGEL SAID Date: 2022-12-06 06:39 Normal [facility] XR ELBOW RT MIN 3 VIEWSon XR ELBOW RT MIN 3 VIEWS Exam: Radiographs: XR ELBOW RT MIN 3 VIEWS Reason for exam: Elbow pain Comparison: None IMPRESSION: Right elbow degenerative changes. Olecranon spur. Remainder of the right elbow is unremarkable. Electronically authenticated by: MICHAEL CASANOVA Date: 2022-12-06 07:22 Normal [facility] XR FOREARM RT 2Von 03-26-202 3 XR FOREARM RT 2V Exam: Radiographs: XR FOREARM RT 2V Reason for exam: Forearm pain Comparison: None IMPRESSION: Mild degenerative changes in the right elbow and wrist. Right forearm is otherwise unremarkable. Electronically authenticated by: MICHAEL CASANOVA Date: 2022-12-06 08:07 Normal [facility] PSA, FREE AND TOTAL RATIOon 12-03-2022 % Free PSA 9.0 % Normal [facility] Comment on above: Result Comment: The [...] men. Performed By: #### P SAFREE #### [facility] [address] [place] [address] Dr. Shabnam Rae Prostate specific Ag [Mass/Vol] 5.9 ng/mL Critically high 0.0-4.0 [facility] Comment on above: Result Comment: Roch lucy ECLIA methodology. . According to the [employer], Serum PSA should decrease and [...] disease. Performed By: #### P SAFREE #### [facility] [address] [place] [address] Dr. Shabnam Rae PSA, Free 0.53 ng/mL Normal N/A [facility] Comment on above: Result Comment: Roch e ECLIA methodology. Performed By: #### P SAFREE #### [facility] [address] [place] [address] Dr. Shabnam Rae INSULINon 12-02-2022 Insulin 20.2 uIU/mL Normal 2.6-24.9 [facility] Comment on above: Performed By: #### P SASC #### [facility] [address] [address] [address] Shabnam Rae TESTOSTERONE, TOTALon 2022 Testosterone [Mass/Vol] 256 ng/dL Critically low 264-916 [facility] Comment on above: Result Comment: Adul t male reference interval is based on a population of healthy nonobese males (BMI <30) between 19 and 39 years old. adia Ch.al. JCEM 2017,102;4248-8744. PMID: 23005095. Performed By: #### P SASC #### [facility] [address] [place] [address] Dr. Shabnam Rae CBC AUTO DIFFon 12-01-2022 BASO # 0.1 103/ul Normal 0.0-0.1 [facility] Comment on above: Performed By: #### P SASC #### [facility] [address] [place] [address] Dr. Shabnam Rae Basophils/100 WBC (Bld) 1.0 % Normal 0.2-2.0 [facility] Comment on above: Performed By: #### P SASC #### [facility] [address] [address] [address] Shabnam Rae EO # 0.1 103/ul Normal 0.0-0.7 [facility] Comment on above: Performed By: #### P SASC #### [facility] [address] [place] [address] Dr. Shabnam Rae Eosinophils/100 WBC (Bld) 1.8 % Normal 0.9-7.0 [facility] Comment on above: Performed By: #### P SASC #### [facility] [address] [place] [address] Dr. Shabnam Rae Erythrocyte distribution width (RBC) [Ratio] 14.8 % Normal 11.0-15.0 [facility] Comment on above: Performed By: #### P SASC #### [facility] [address] [place] [address] [address] Shabnam Rae Hematocrit (Bld) [Volume fraction] 49.9 % Normal 42.0-54.0 [facility] Comment on above: Performed By: #### P SASC #### [facility] [address] [address] [address] Shabnam Rae Hemoglobin (Bld) [Mass/Vol] 16.0 g/dL Normal 14.0-18.0 [facility] Comment on above: Performed By: #### P SASC #### [facility] [address] [address] [address] Shabnam Rae IG # 0.04 10e3/ul Critically high 0.00-0.[address] [facility] Comment on above: Performed By: #### P SASC #### [facility] [address] [place] [address] Dr. Shabnam Rae IG % 0.6 % Critically high 0.0-0.5 [facility] Comment on above: Performed By: #### P SASC #### [facility] [address] [address] [address] Shabnam Rae LYMPH # 1.0 103/ul Critically low 1.2-3.[address] [facility] Comment on above: Performed By: #### P SASC #### [facility] [address] [address] [address] Shabnam Rae Lymphocytes/100 WBC (Bld) 16.2 % Critically low 20.5-60.0 [facility] Comment on above: Performed By: #### P SASC #### [facility] [address] [address] [address] Shabnam Rae MANUAL DIFF REQ NO Normal [facility] Comment on above: Performed By: #### P SASC #### [facility] [address] [address] [address] Shabnam Rae MCH (RBC) [Entitic mass] 27.7 pg Normal 25.9-34.0 [facility] Comment on above: Performed By: #### P SASC #### [facility] [address] [address] [address] Shabnam Rae MCHC (RBC) [Mass/Vol] 32.1 g/dL Normal 29.9-35.2 [facility] Comment on above: Performed By: #### P SASC #### [facility] [address] [address] [address] Shabnam Rae MCV (RBC) [Entitic vol] 86.3 fL Normal 80.0-94.0 [facility] Comment on above: Performed By: #### P SASC #### [facility] [address] [address] [address] Shabnam Rae MONO # 0.5 103/ul Normal 0.3-0.8 [facility] Comment on above: Performed By: #### P SASC #### [facility] [address] [place] [address] [address] Shabnam Rae Monocytes/100 WBC (Bld) 7.6 % Normal 1.7-12.0 [facility] Comment on above: Performed By: #### P SASC #### [facility] [address] [address] [address] Shabnam Rae NEUT # 4.6 103/ul Normal 1.4-6.5 [facility] Comment on above: Performed By: #### P SASC #### [facility] [address] [address] [address] Shabnam Rae Neutrophils/100 WBC (Bld) 72.8 % Normal 43.0-75.0 [facility] Comment on above: Performed By: #### P SASC #### [facility] [address] [address] [address] Shabnam Rae Platelet mean volume (Bld) [Entitic vol] 9.8 fL Normal 9.5-13.5 [facility] Comment on above: Performed By: #### P SASC #### [facility] [address] [address] [address] Shabnam Rae PLT 203 103/ul Normal 150-450 [facility] Comment on above: Performed By: #### P SASC #### [facility] [address] [address] [address] Shabnam Rae RBC 5.78 106/ul Normal 4.70-6.10 [facility] Comment on above: Performed By: #### P SASC #### [facility] [address] [place] [address] Dr. Shabnam Rae WBC 6.3 103/ul Normal 4.0-11.0 [facility] Comment on above: Performed By: #### P SASC #### [facility] [address] [place] [address] Dr. Shabnam Rae FREE THYROXINE INDEX T7on FTI 2.05 Normal 1.30-4.50 [facility] Comment on above: Performed By: #### T SH, CMP, LIPID, T7, URIC #### [facility] [address] [place] [address] Dr. Shabnam Rae T3U 33.0 % Normal 33.0-40.0 [facility] Comment on above: Performed By: #### T SH, CMP, LIPID, T7, URIC #### [facility] [address] [place] [address] Dr. Shabnam Rae T4 [Mass/Vol] 6.20 ug/dL Normal 4.50-12.10 [facility] Comment on above: Performed By: #### T SH, CMP, LIPID, T7, URIC #### [facility] [address] [place] [address] Dr. Shabnam Rae GLYCOHEMOGLOBIN A1Con 2022 ADA RECOMMENDATION SEE BELOW Normal [facility] Comment on above: Result Comment: ADA RECOMMENDED LIMIT 4.0 - 6.0 ADA THERAPEUTIC TARGET < 7.0 ACTION SUGGESTED > 7.0 Performed By: #### P SASC #### [facility] [address] [place] [address] Dr. Shabnam Rae Glucose [Mass/Vol] 114 mg/dL Normal [facility] Comment on above: Performed By: #### P SASC #### [facility] [address] [place] [address] Dr. Shabnam Rae HbA1c (Bld) [Mass fraction] 5.6 % Normal 4.5-6.2 [facility] Comment on above: Performed By: #### P SASC #### [facility] [address] [place] [address] Dr. Shabnam Rae LIPID PROFILEon 12-01-2022 CHOL-HDL RATIO NORM SEE BELOW Normal [facility] Comment on above: Result Comment: 3.3 - 4.4 LOW RISK 4.4 - 7.1 AVERAGE RISK 7.1 - 11.0 MODERATE RISK >11.0 HIGH RISK Performed By: #### T SH, CMP, LIPID, T7, URIC #### [facility] [address] [place] [address] Dr. Shabnam Rae Cholesterol [Mass/Vol] 176 mg/dL Normal <=200 [facility] Comment on above: Performed By: #### T SH, CMP, LIPID, T7, URIC #### [facility] [address] [place] [address] Dr. Shabnam Rae Cholesterol in HDL [Mass/Vol] 48 mg/dL Normal 40-60 [facility] Comment on above: Performed By: #### T SH, CMP, LIPID, T7, URIC #### [facility] [address] [place] [address] Dr. Shabnam Rae Cholesterol in LDL [Mass/Vol] 108.2 mg/dL Normal [facility] Comment on above: Performed By: #### T SH, CMP, LIPID, T7, URIC #### [facility] [address] [place] [address] Dr. Shabnam Rae Cholesterol.total/Ch olesterol in HDL [Mass ratio] 3.7 {ratio} Normal [facility] Comment on above: Performed By: #### T SH, CMP, LIPID, T7, URIC #### [facility] [address] [place] [address] Dr. Shabnam Rae HDL NORMAL > or = 60 mg/dl - LOW CARDIOVASCULAR RISK <40 mg/dl - HIGH CARDIOVASCULAR RISK Normal [facility] Comment on above: Performed By: #### T SH, CMP, LIPID, T7, URIC #### [facility] [address] [place] [address] Dr. Shabnam Rae LDL CALC NORMAL SEE BELOW Normal [facility] Comment on above: Result Comment: <100 mg/dl OPTIMAL 100 - 129 mg/dl NEAR OR ABOVE OPTIMAL 130 - 159 mg/dl BORDERLINE HIGH 160 - 189 mg/dl HIGH >190 mg/dl VERY HIGH Performed By: #### T SH, CMP, LIPID, T7, URIC #### [facility] [address] [address] [address] Shabnam Rae Triglyceride [Mass/Vol] 99 mg/dL Normal <=150 [facility] Comment on above: Performed By: #### T SH, CMP, LIPID, T7, URIC #### [facility] [address] [address] [address] Shabnam Rae VLDL CALC 19.8 mg/dL Normal [facility] Comment on above: Performed By: #### T SH, CMP, LIPID, T7, URIC #### [facility] [address] [address] [address] Shabnam Rae PROF 14(COMP METB)on 023 Albumin [Mass/Vol] 4.1 g/dL Normal 3.4-5.0 [facility] Comment on above: Performed By: #### T SH, CMP, LIPID, T7, URIC #### [facility] [address] [address] [address] Shabnam Rae Albumin/Globulin [Mass ratio] 1.1 {ratio} Normal [facility] Comment on above: Performed By: #### T SH, CMP, LIPID, T7, URIC #### [facility] [address] [address] [address] Shabnam Rae ALP [Catalytic activity/Vol] 101 U/L Normal 46-116 [facility] Comment on above: Performed By: #### T SH, CMP, LIPID, T7, URIC #### [facility] [address] [address] [address] Shabnam Rae ALT [Catalytic activity/Vol] 26 U/L Normal 16-63 [facility] Comment on above: Performed By: #### T SH, CMP, LIPID, T7, URIC #### [facility] [address] [address] [address] Shabnam Rae Anion gap [Moles/Vol] 10.1 mmol/L Normal [facility] Comment on above: Performed By: #### T SH, CMP, LIPID, T7, URIC #### [facility] [address] [place] [address] Dr. Shabnam Rae AST [Catalytic activity/Vol] 19 U/L Normal 15-37 [facility] Comment on above: Performed By: #### T SH, CMP, LIPID, T7, URIC #### [facility] [address] [address] [address] Shabnam Rae Bilirubin [Mass/Vol] 0.8 mg/dL Normal 0.2-1.0 [facility] Comment on above: Performed By: #### T SH, CMP, LIPID, T7, URIC #### [facility] [address] [place] [address] Dr. Shabnam Rae Calcium [Mass/Vol] 9.5 mg/dL Normal 8.5-10.1 [facility] Comment on above: Performed By: #### T SH, CMP, LIPID, T7, URIC #### [facility] [address] [address] [address] Shabnam Rae Chloride [Moles/Vol] 102 mmol/L Normal 98-107 [facility] Comment on above: Performed By: #### T SH, CMP, LIPID, T7, URIC #### [facility] [address] [address] [address] Shabnam Rae CO2 [Moles/Vol] 32.4 mmol/L Critically high 21.0-32.0 [facility] Comment on above: Performed By: #### T SH, CMP, LIPID, T7, URIC #### [facility] [address] [place] [address] Dr. Shabnam Rae Creatinine [Mass/Vol] 1.00 mg/dL Normal 0.70-1.30 [facility] Comment on above: Performed By: #### T SH, CMP, LIPID, T7, URIC #### [facility] [address] [place] [address] Dr. Shabnam Rae EGFR-AF MONGOLIAN >60 Normal >=60 [facility] Comment on above: Performed By: #### T SH, CMP, LIPID, T7, URIC #### [facility] [address] [address] [address] Shabnam Rae EGFR-NON AF MONGOLIAN >60 Normal >=60 [facility] Comment on above: Performed By: #### T SH, CMP, LIPID, T7, URIC #### [facility] [address] [address] [address] Shabnam Rae Globulin (S) [Mass/Vol] 3.8 g/dL Normal [facility] Comment on above: Performed By: #### T SH, CMP, LIPID, T7, URIC #### [facility] [address] [place] [address] Dr. Shabnam Rae Glucose [Mass/Vol] 94 mg/dL Normal 74-106 [facility] Comment on above: Performed By: #### T SH, CMP, LIPID, T7, URIC #### [facility] [address] [place] [address] Dr. Shabnam Rae Potassium [Moles/Vol] 3.5 mmol/L Normal 3.5-5.1 [facility] Comment on above: Performed By: #### T SH, CMP, LIPID, T7, URIC #### [facility] [address] [place] [address] Dr. Shabnam Rae Protein [Mass/Vol] 7.9 g/dL Normal 6.4-8.2 [facility] Comment on above: Performed By: #### T SH, CMP, LIPID, T7, URIC #### [facility] [address] [address] [address] Shabnam Rae Sodium [Moles/Vol] 141 mmol/L Normal 136-145 [facility] Comment on above: Performed By: #### T SH, CMP, LIPID, T7, URIC #### [facility] [address] [place] [address] Dr. Shabnam Rae Urea nitrogen [Mass/Vol] 15.0 mg/dL Normal 7.0-18.0 [facility] Comment on above: Performed By: #### T SH, CMP, LIPID, T7, URIC #### [facility] [address] [id number] Shabnam Rae Urea nitrogen/Creatinine [Mass ratio] 15.0 mg/mg Normal [facility] Comment on above: Performed By: #### T SH, CMP, LIPID, T7, URIC #### [facility] [id number] Shabnam Rae TSHon 12-01-2022 TSH 1.504 uIU/mL Normal 0.358-3.740 [place] Comment on above: Performed By: #### T SH, CMP, LIPID, T7, URIC #### [facility] [id number] Shabnam Rae URIC ACID SERUMon 12-01-2022 Urate [Mass/Vol] 6.9 mg/dL Normal 3.5-7.2 [facility] Comment on above: Performed By: #### T SH, CMP, LIPID, T7, URIC #### [facility] [address] [address] [address] Shabnam Rae TESTOSTERONE, TOTALon 2021 Testosterone [Mass/Vol] 244 ng/dL Critically low 264-916 [facility] Comment on above: Result Comment: Adul t male reference interval is based on a population of healthy nonobese males (BMI <30) between 19 and 39 years old. Dima, et.al. JCEM 2017,102;6541-3683. PMID: [id number]. Performed By: #### P SAFREE #### [facility] [address] [place] [address] Dr. Shabnam Rae TESTOSTERONE, FREE,DIRECT, T OTALon 03-16-2022 Free Testosterone(Direct) 2.1 pg/mL Critically low 7.2-24.0 [place] Comment on above: Result Comment: Perf ormed at: BN Performed By: #### C VDTBH #### [facility] [id number] Shabnam Rae Testosterone [Mass/Vol] 252 ng/dL Critically low 264-916 [facility] Comment on above: Result Comment: Adul t male reference interval is based on a population of healthy nonobese males (BMI <30) between 19 and 39 years old. Dima et.al. JCEM 2017,102;7092-7213. PMID: [id number]. Performed at: CB Performed By: #### [facility] #### [facility] [address] [address] [address] Shabnam Rae Formson 02-26-2022 Forms [id number] 7#1.00CD:127 Normal [facility] Screenson 02-26-2022 Screens [id number] 7#1.00CD:127 Normal [facility] Screens [id number] #1.00CD:127 Normal [facility] Urology Office/Clinic Noteon 02-26-2022 Urology Office/Clinic Note [...] qualifying data (more content not included)... Normal [facility] Comment on above: Result Comment: Elec tronically Signed By: Viola Grullon MD\.br\Date and Time Signed: 02/26/22 00:20 EDT\.br\Electronically Co-Signed By: Helen Leung\.br\Date and Time Co-Signed: 02/25/22 11:16 EDT Ambulatory Visit Summaryon 0 02-25-2022 Ambulatory Visit Summary MATTY GARCES :1970 Visit Date:02/25/2022 Ambulatory Visit Instructions Your Diagnosis Hydrocele Varicocele BPH without urinary obstruction Tests Performed Urnls Dip Stick Auto w/o Microscopy POC 05185 Your Care Team Attending Physician - Viola [...] Urnls Dip Stick Auto w/o Microscopy POC 71129 (02/25/2022) Bilirubin Urine Dipstick - Negative Blood Urine Dipstick - Negative Glucose Urine Dipstick - Negative Ketones Urine Dipstick - Negative Leukocytes Urine Dipstick - Negative Nitrite Urine Dipstick - Negative Protein Urine Dipstick - Negative Specific [place] Urine Dipstick - >=1.030 Urine Appearance Urine [...] the hydrocele for any changes. ? Take cdaf-qfg-qovpfbu and prescription medicines only as told by [...] intended t (more content not included)... Normal [facility] Patient Educationon 02-26-20 Patient Education Urology Hydrocele, [...] the hydrocele for any changes. ? Take nacs-tcx-vfstwng and prescription medicines only as told by [...] Reviewed: 09/10/2018 Elsevier Patient Education ? 2019 [employer]. [facility] ED Note-Physicianon 05-24-20 22 ED Note-Physician [id number] 62#1.00CD:127 Normal [facility] RAD - Ultrasound Reporton RAD - Ultrasound Report [id number] #1.00CD:127 Normal [facility] RAD - CT Reporton 02-02-[address] RAD - [address] Report [id number] 55#1.00CD:127 Normal [facility] RAD - CT Report [id number] 75#1.00CD:127 Normal [facility] CBC AUTO DIFFon 01-05-2022 BASO # 0.0 103/ul Normal 0.0-0.1 [facility] Comment on above: Performed By: #### P SAFREE #### [facility] [address] [place] [address] Dr. Shabnam Rae Basophils/100 WBC (Bld) 0.6 % Normal 0.2-2.0 [facility] Comment on above: Performed By: #### P SAFREE #### [facility] [address] [address] [address] Shabnam Rae EO # 0.1 103/ul Normal 0.0-0.7 [facility] Comment on above: Performed By: #### P SAFREE #### [facility] [address] [address] [address] Shabnam Rae Eosinophils/100 WBC (Bld) 2.1 % Normal 0.9-7.0 [facility] Comment on above: Performed By: #### P SAFREE #### [facility] [address] [address] [address] Shabnam Rae Erythrocyte distribution width (RBC) [Ratio] 13.1 % Normal 11.0-15.0 [facility] Comment on above: Performed By: #### P SAFREE #### [facility] [address] [place] [address] Dr. Shabnam Rae Hematocrit (Bld) [Volume fraction] 43.1 % Normal 42.0-54.0 [facility] Comment on above: Performed By: #### P SAFREE #### [facility] [address] [address] [address] Shabnam Rae Hemoglobin (Bld) [Mass/Vol] 13.7 g/dL Critically low 14.0-18.0 [facility] Comment on above: Performed By: #### P SAFREE #### [facility] [address] [address] [address] Shabnam Rae IG # 0.04 10e3/ul Critically high 0.00-0.[address] [facility] Comment on above: Performed By: #### P SAFREE #### [facility] [address] [address] [address] Shabnam Rae IG % 0.6 % Critically high 0.0-0.5 [facility] Comment on above: Performed By: #### P SAFREE #### [facility] [address] [address] [address] Shabnam Rae LYMPH # 0.9 103/ul Critically low 1.2-3.[address] [facility] Comment on above: Performed By: #### P SAFREE #### [facility] [address] [address] [address] Shabnam Rae Lymphocytes/100 WBC (Bld) 13.1 % Critically low 20.5-60.0 [facility] Comment on above: Performed By: #### P SAFREE #### [facility] [address] [address] [address] Shabnam Rae MANUAL DIFF REQ NO Normal [facility] Comment on above: Performed By: #### P SAFREE #### [facility] [address] [address] [address] Shabnam Rae MCH (RBC) [Entitic mass] 29.5 pg Normal 25.9-34.0 [facility] Comment on above: Performed By: #### P SAFREE #### [facility] [address] [address] [address] Shabnam Rae MCHC (RBC) [Mass/Vol] 31.8 g/dL Normal 29.9-35.2 [facility] Comment on above: Performed By: #### P SAFREE #### [facility] [address] [address] [address] Shabnam Rae MCV (RBC) [Entitic vol] 92.9 fL Normal 80.0-94.0 [facility] Comment on above: Performed By: #### P SAFREE #### [facility] [address] [address] [address] Shabnam Rae MONO # 0.4 103/ul Normal 0.3-0.8 [facility] Comment on above: Performed By: #### P SAFREE #### [facility] [address] [address] [address] Shabnam Rae Monocytes/100 WBC (Bld) 5.4 % Normal 1.7-12.0 [facility] Comment on above: Performed By: #### P SAFREE #### [facility] [address] [address] [address] Shabnam Rae NEUT # 5.2 103/ul Normal 1.4-6.5 [facility] Comment on above: Performed By: #### P SAFREE #### [facility] [address] [address] [address] Shabnam Rae Neutrophils/100 WBC (Bld) 78.2 % Critically high 43.0-75.0 [facility] Comment on above: Performed By: #### P SAFREE #### [facility] [address] [address] [address] Shabnam Rae Platelet mean volume (Bld) [Entitic vol] 10.9 fL Normal 9.5-13.5 [facility] Comment on above: Performed By: #### P SAFREE #### [facility] [address] [address] [address] Shabnam Rae PLT 153 103/ul Normal 150-450 [facility] Comment on above: Performed By: #### P SAFREE #### [facility] [address] [address] [address] Shabnam Rae RBC 4.64 106/ul Critically low 4.70-6.10 [facility] Comment on above: Performed By: #### P SAFREE #### [facility] [address] [place] [address] Dr. Shabnam Rae WBC 6.6 103/ul Normal 4.0-11.0 [facility] Comment on above: Performed By: #### P SAFREE #### [facility] [address] [place] [address] Dr. Shabnam Rae CRPon 01-05-2022 CRP 0.9 mg/dL Normal <=1.0 [facility] Comment on above: Performed By: #### P SAFREE #### [facility] [address] [place] [address] Dr. Shabnam Rae PROF 14(COMP METB)on 022 Albumin [Mass/Vol] 3.6 g/dL Normal 3.4-5.0 [facility] Comment on above: Performed By: #### P SAFREE #### [facility] [address] [place] [address] Dr. Shabnam Rae Albumin/Globulin [Mass ratio] 1.0 {ratio} Normal [facility] Comment on above: Performed By: #### P SAFREE #### [facility] [address] [place] [address] Dr. Shabnam Rae ALP [Catalytic activity/Vol] 114 U/L Normal 46-116 [facility] Comment on above: Performed By: #### P SAFREE #### [facility] [address] [place] [address] Dr. Shabnam Rae ALT [Catalytic activity/Vol] 26 U/L Normal 16-63 [facility] Comment on above: Performed By: #### P SAFREE #### [facility] [address] [place] [address] Dr. Shabnam Rae Anion gap [Moles/Vol] 9.3 mmol/L Normal [facility] Comment on above: Performed By: #### P SAFREE #### [facility] [address] [place] [address] Dr. Shabnam Rae AST [Catalytic activity/Vol] 19 U/L Normal 15-37 [facility] Comment on above: Performed By: #### P SAFREE #### [facility] [address] [address] [address] Shabnam Rae Bilirubin [Mass/Vol] 0.5 mg/dL Normal 0.2-1.0 [facility] Comment on above: Performed By: #### P SAFREE #### [facility] [address] [address] [address] Shabnam Rae Calcium [Mass/Vol] 8.9 mg/dL Normal 8.5-10.1 [facility] Comment on above: Performed By: #### P SAFREE #### [facility] [address] [address] [address] Shabnam Rae Chloride [Moles/Vol] 106 mmol/L Normal 98-107 [facility] Comment on above: Performed By: #### P SAFREE #### [facility] [address] [address] [address] Shabnam Rae CO2 [Moles/Vol] 30.7 mmol/L Normal 21.0-32.0 [facility] Comment on above: Performed By: #### P SAFREE #### [facility] [address] [address] [address] Shabnam Rae Creatinine [Mass/Vol] 1.15 mg/dL Normal 0.70-1.30 [facility] Comment on above: Performed By: #### P SAFREE #### [facility] [address] [address] [address] Shabnam Rae EGFR-AF MONGOLIAN >60 Normal >=60 [facility] Comment on above: Performed By: #### P SAFREE #### [facility] [address] [address] [address] Shabnam Rae EGFR-NON AF MONGOLIAN >60 Normal >=60 [facility] Comment on above: Performed By: #### P SAFREE #### [facility] [address] [address] [address] Shabnam Rae Globulin (S) [Mass/Vol] 3.6 g/dL Normal [facility] Comment on above: Performed By: #### P SAFREE #### [facility] [address] [address] [address] Shabnam Rae Glucose [Mass/Vol] 117 mg/dL Critically high 74-106 [facility] Comment on above: Performed By: #### P SAFREE #### [facility] [address] [address] [address] Shanbam Rae Potassium [Moles/Vol] 4.0 mmol/L Normal 3.5-5.1 [facility] Comment on above: Performed By: #### P SAFREE #### [facility] [address] [address] [address] Shabnam Rae Protein [Mass/Vol] 7.2 g/dL Normal 6.1-8.2 [facility] Comment on above: Performed By: #### P SAFREE #### [facility] [address] [address] [address] Shabnam Rae Sodium [Moles/Vol] 142 mmol/L Normal 136-145 [facility] Comment on above: Performed By: #### P SAFREE #### [facility] [address] [address] [address] Shabnam Rae Urea nitrogen [Mass/Vol] 15.0 mg/dL Normal 7.0-18.0 [facility] Comment on above: Performed By: #### P SAFREE #### [facility] [address] [address] [address] Shabnam Rae Urea nitrogen/Creatinine [Mass ratio] 13.0 mg/mg Normal [facility] Comment on above: Performed By: #### P SAFREE #### [facility] [address] [place] [address] Dr. Shabnam Rae US SCROTUMon 01-05-2022 US [...] ALVINA CAICEDO Date: 2022-01-05 08:48 Normal [facility] CBC AUTO DIFFon 01-04-2022 BASO # 0.1 103/ul Normal 0.0-0.1 [facility] Comment on above: Performed By: #### C BC #### [facility] [address] [place] [address] Dr. Shabnam Rae Basophils/100 WBC (Bld) 0.8 % Normal 0.2-2.0 [facility] Comment on above: Performed By: #### C BC #### [facility] [address] [place] [address] Dr. Shabnam Rae EO # 0.1 103/ul Normal 0.0-0.7 [facility] Comment on above: Performed By: #### C BC #### [facility] [address] [place] [address] Dr. Shabnam Rae Eosinophils/100 WBC (Bld) 1.5 % Normal 0.9-7.0 [facility] Comment on above: Performed By: #### C BC #### [facility] [address] [place] [address] Dr. Shbanam Rae Erythrocyte distribution width (RBC) [Ratio] 12.8 % Normal 11.0-15.0 [facility] Comment on above: Performed By: #### C BC #### [facility] [address] [place] [address] Dr. Shabnam Rae Hematocrit (Bld) [Volume fraction] 40.3 % Critically low 42.0-54.0 [facility] Comment on above: Performed By: #### C BC #### [facility] [address] [place] [address] Dr. Shabnam Rae Hemoglobin (Bld) [Mass/Vol] 13.4 g/dL Critically low 14.0-18.0 [facility] Comment on above: Performed By: #### C BC #### [facility] [address] [place] [address] Dr. Shabnam Rae IG # 0.03 10e3/ul Normal 0.00-0.03 [facility] Comment on above: Performed By: #### C BC #### [facility] [address] [place] [address] Dr. Shabnam Rae IG % 0.5 % Normal 0.0-0.5 [facility] Comment on above: Performed By: #### C BC #### [facility] [address] [place] [address] Dr. Shabnam Rae LYMPH # 1.0 103/ul Critically low 1.2-3.[address] [facility] Comment on above: Performed By: #### C BC #### [facility] [address] [place] [address] Dr. Shabnam Rae Lymphocytes/100 WBC (Bld) 16.4 % Critically low 20.5-60.0 [facility] Comment on above: Performed By: #### C BC #### [facility] [address] [place] [address] Dr. Shabnam Rae MANUAL DIFF REQ NO Normal [facility] Comment on above: Performed By: #### C BC #### [facility] [address] [place] [address] Dr. Shabnam Rae MCH (RBC) [Entitic mass] 29.5 pg Normal 25.9-34.0 [facility] Comment on above: Performed By: #### C BC #### [facility] [id number] Shabnam Rae MCHC (RBC) [Mass/Vol] 33.3 g/dL Normal 29.9-35.2 [facility] Comment on above: Performed By: #### C BC #### [facility] [id number] Shabnam Rae MCV (RBC) [Entitic vol] 88.8 fL Normal 80.0-94.0 [facility] Comment on above: Performed By: #### C BC #### [facility] [address] [address] [address] Shabnam Rae MONO # 0.6 103/ul Normal 0.3-0.8 [facility] Comment on above: Performed By: #### C BC #### [facility] [address] [place] [address] Dr. Shabnam Rae Monocytes/100 WBC (Bld) 9.6 % Normal 1.7-12.0 [facility] Comment on above: Performed By: #### C BC #### [facility] [address] [place] [address] Dr. Shabnam Rae NEUT # 4.4 103/ul Normal 1.4-6.5 [facility] Comment on above: Performed By: #### C BC #### [facility] [address] [place] [address] Dr. Shabnam Rae Neutrophils/100 WBC (Bld) 71.2 % Normal 43.0-75.0 [facility] Comment on above: Performed By: #### C BC #### [facility] [address] [place], [place] [id number] Dr. Shabnam Rae Platelet mean volume (Bld) [Entitic vol] 10.8 fL Normal 9.5-13.5 [facility] Comment on above: Performed By: #### C BC #### [facility] [address] [place], [place] [id number] Dr. Shabnam Rae PLT 158 103/ul Normal 150-450 [facility] Comment on above: Performed By: #### C BC #### [facility] [address] [place] [address] [address] [address] Shabnam Rae RBC 4.54 106/ul Critically low 4.70-6.10 [facility] Comment on above: Performed By: #### C BC #### [facility] [address] [place], [place] [address] Dr. Shabnam Rae WBC 6.2 103/ul Normal 4.0-11.0 [facility] Comment on above: Performed By: #### C BC #### [facility] [address] [place], [place] [address] ABD/PELV W CONon [...] MAYRA BERNAL Date: 2022-01-04 05:19 Normal [facility] CT PELVIS WO CONon CT PELVIS WO [...] MANUEL HOUGH Date: 2022-01-04 08:54 Normal [facility] CULTURE URINEon 01-04-2022 CULTURE URINE Culture Observations: No growth Normal [facility] Comment on above: Performed By: #### P [facility] #### [facility] [address] [place] [address] Dr. Shabnam Rae Covid-19 PCR (CVDTB)on 12-13 SARS-CoV-2 (COVID-19) RNA ELIJAH+probe Ql (Unsp spec) Not detected Normal NOT DETECTED [facility] Comment on above: Result Comment: When diagnostic testing is negative, the possibility of a false negative should be considered in the context of a patient's recent exposures and the presence of clinical signs and symptoms consistent with SARS-CoV-2. This test is not yet approved or cleared by the [place] Food and Drug Administration (FDA). This test was developed by [employer], [place], [place]. The performance characteristics of this test were validated by The [facility]. The results are not intended to be used as the sole means for clinical diagnosis or patient management decisions. The [facility] is authorized under Clinical Laboratory Improvement Amendments [...] for this test is supported by the [place] of Health and Human Service's declaration that [...] used). Performed By: #### C VDTBH #### [facility] [address] [place] [address] Dr. Shabnam Rae ER URINE PROFILEon 2 Bilirubin Ql (U) Negative Normal NEGATIVE [facility] Comment on above: Performed By: #### P SASC #### [facility] [address] [place] [address] Dr. Shabnam Rae Clarity (U) CLEAR Normal CLEAR [facility] Comment on above: Performed By: #### P SASC #### [facility] [address] [place] [address] Dr. Shabnam Rae Color (U) YELLOW Normal YELLOW [facility] Comment on above: Performed By: #### P SASC #### [facility] [address] [address] [address] Shabnam HERNANDEZ A micrscopic examination will be performed if indicated. Normal [facility] Comment on above: Performed By: #### P SASC #### [facility] [address] [address] [address] Shabnam Rae Glucose Ql (U) Negative Normal NEGATIVE [facility] Comment on above: Performed By: #### P SASC #### [facility] [address] [address] [address] Shabnam Rae Hemoglobin Ql (U) Negative Normal NEGATIVE [facility] Comment on above: Performed By: #### P SASC #### [facility] [address] [place] [address] Dr. Shabnam Rae Ketones Ql (U) Negative Normal NEGATIVE [facility] Comment on above: Performed By: #### P SASC #### [facility] [address] [address] [address] Shabnam Rae LEUKOCYTES Negative Normal NEGATIVE [facility] Comment on above: Performed By: #### P SASC #### [facility] [address] [address] [address] Shabnam Rae Nitrite Ql (U) Negative Normal NEGATIVE [facility] Comment on above: Performed By: #### P SASC #### [facility] [address] [address] [address] Shabnam Rae pH (U) 6.5 [pH] Normal 5-9 [facility] Comment on above: Performed By: #### P SASC #### [facility] [address] [address] [address] Shabnam Rae SPEC GRAVITY 1.010 Normal 1.005-<=1.025 [facility] Comment on above: Performed By: #### P SASC #### [facility] [address] [address] [address] Shabnam Rae UA PROTEIN Negative Normal NEGATIVE/ TRACE [facility] Comment on above: Performed By: #### P SASC #### [facility] [address] [address] [address] Shabnam Rae UR MICRO IND NOT INDICATED Normal [facility] [place] [facility] Comment on above: Performed By: #### P SASC #### [facility] [address] [address] [address] Shabnam Rae Urobilinogen Qn (U) 0.2 {Sarai'U}/dL Normal 0.2 - 1. 0 [facility] Comment on above: Performed By: #### P SASC #### [facility] [address] [address] [address] Shabnam Rae LACTATE/LACTIC ACIDon 2021 Lactate [Moles/Vol] 1.0 mmol/L Normal 0.4-2.0 [facility] Comment on above: Performed By: #### P SASC #### [facility] [address] [place] [address] Dr. Shabnam Rae PROF CHEM 8 (BAS METB)on Anion gap [Moles/Vol] 10.0 mmol/L Normal [facility] Comment on above: Performed By: #### B MP #### [facility] [address] [place] [address] Dr. Shabnam Rae Calcium [Mass/Vol] 8.5 mg/dL Normal 8.5-10.1 [facility] Comment on above: Performed By: #### B MP #### [facility] [address] [place] [address] Dr. Shabnam Rae Chloride [Moles/Vol] 103 mmol/L Normal 98-107 [facility] Comment on above: Performed By: #### B MP #### [facility] [address] [place] [address] Dr. Shabnam Rae CO2 [Moles/Vol] 29.2 mmol/L Normal 21.0-32.0 [facility] Comment on above: Performed By: #### B MP #### [facility] [address] [place] [address] Dr. Shabnam Rae Creatinine [Mass/Vol] 1.25 mg/dL Normal 0.70-1.30 [facility] Comment on above: Performed By: #### B MP #### [facility] [address] [address] [address] Shabnam Rae EGFR-AF MONGOLIAN >60 Normal >=60 [facility] Comment on above: Performed By: #### B MP #### [facility] [address] [phone] [address] Shabnam Rae EGFR-NON AF MONGOLIAN >60 Normal >=60 [facility] Comment on above: Performed By: #### B MP #### [facility] [address] [address] [address] Shabnam Rae Glucose [Mass/Vol] 132 mg/dL Critically high 74-106 T [facility] Comment on above: Performed By: #### B MP #### [facility] [address] [address] [address] Shabnam Rae Potassium [Moles/Vol] 3.2 mmol/L Critically low 3.5-5.1 [facility] Comment on above: Performed By: #### B MP #### [facility] [address] [address] [address] Shabnam Rae Sodium [Moles/Vol] 139 mmol/L Normal 136-145 [facility] Comment on above: Performed By: #### B MP #### [facility] [address] [address] [address] Shabnam Rae Urea nitrogen [Mass/Vol] 19.0 mg/dL Critically high 7.0-18.0 [facility] Comment on above: Performed By: #### B MP #### [facility] [address] [address] [address] Shabnam Rae Urea nitrogen/Creatinine [Mass ratio] 15.2 mg/mg Normal [facility] Comment on above: Performed By: #### B MP #### [facility] [phone] Shabnam Rae CERVICAL SPINE 2 OR 3 [facility] 07-06-2019 CERVICAL SPINE 2 OR 3 [facility] Department of Radiology [address] [place] [id number] Patient Name: MATTY GARCES : 1970 Sex: M Age: Race: White Pt. Location: Patient Status: O Ordered Date: 07/06/2019 9:10:00 AM Completed Date: 07/06/2019 09:21 AM Requesting Provider: LUCIANO VIEIRA Attending Provider: LUCIANO VIEIRA Report Copy To: VENUS MENDEZ Signs & Symptoms: M48.02 Spinal stenosis, cervical region I10 History: [place] Comments: , STAT READ , STAT READ [...] findings. Electronically signed by:Bernice Hoyt. Transcribed by: [email or web address], User Resident: RADHA CHIN Electronically Signed by: BERNICE HOYT @ 07/06/2019 08:52 PM I personally read this/these film(s) with this resident Normal [facility] Comment on above: Order Comment: , STA T READ , STAT READ , , , Ordering Provider - LUCIANO VIEIRA MD , CERVICAL SPINE 2 OR 3 [facility] 04-06-2019 CERVICAL SPINE 2 OR 3 [facility] Department of Radiology [address] [place] [id number] Patient Name: MATTY GARCES : 1970 [...] FALLS Exam: CERVICAL SPINE 2 OR 3 [facility] CERVICAL SPINE 2 OR 3 S [...] study. Electronically signed by:Bernice Hoyt. Transcribed by: [email or web address], User Resident: Electronically Signed by: BERNICE HOYT @ 04/06/2019 04:40 PM Normal [facility] Comment on above: Order Comment: AP/LA T, ODONTOID PLEASE DO SWIMMER'S VIEW FOLLOW UP HARDWARE AND ALIGNMENT, S/P ACDF, RECENT FALLS CERVICAL SPINE 2 OR 3 [facility] 02-17-2019 CERVICAL SPINE 2 OR 3 [facility] Department of Radiology [address] [place] [id number] Patient Name: MATTY GARCES : 1970 [...] findings. Electronically signed by:Bella King. Transcribed by: [email or web address], User Resident: EMILE TINAJERO Electronically Signed by: BELLA KING @ 02/20/2019 11:53 AM I personally read this/these film(s) with this resident Normal [facility] Comment on above: Order Comment: C-SPI NE 2 OR 3 VIEW POSTOP, EVALUATION HARDWARE AN ALIGNMENT BASIC METABOLIC PANELon 05- Calcium [Mass/Vol] 9.2 mg/dL Normal 8.6-10.3 [facility] Comment on above: Order Comment: No: D o not add to previous draw Performed By: #### 5 0103 #### [facility] [address] [place] [address], [place] Chloride [Moles/Vol] 101 mmol/L Normal 98-107 [facility] Comment on above: Order Comment: No: D o not add to previous draw Performed By: #### 5 0103 #### [facility] [address] [place] [address], [place] CO2 [Moles/Vol] 26 mmol/L Normal 21-31 [facility] Comment on above: Order Comment: No: D o not add to previous draw Performed By: #### 5 0103 #### [facility] [address] [place] [address], [place] Creatinine [Mass/Vol] 1.02 mg/dL Normal 0.70-1.30 [facility] Comment on above: Order Comment: No: D o not add to previous draw Performed By: #### 5 0103 #### [facility] [address] [place] [address], [place] GFR/1.73 sq M predicted among blacks MDRD (S/P/Bld) [Vol rate/Area] mL/min/{1.73_m2} Normal >60 [facility] Comment on above: Order Comment: No: D o not add to previous draw Performed By: #### 5 0103 #### [facility] [address] [place] [address], [facility] GFR/1.73 sq M predicted among non-blacks MDRD (S/P/Bld) [Vol rate/Area] mL/min/{1.73_m2} Normal >60 [facility] Comment on above: Order Comment: No: D o not add to previous draw Performed By: #### 5 0103 #### [facility] [address] [place] [address], [facility] Glucose [Mass/Vol] 124 mg/dL High 70-100 [facility] Comment on above: Order Comment: No: D o not add to previous draw Performed By: #### 5 0103 #### [facility] [address] [place] [address], [facility] Potassium [Moles/Vol] 3.9 mmol/L Normal 3.5-5.1 [facility] Comment on above: Order Comment: No: D o not add to previous draw Performed By: #### 5 0103 #### [facility] [address] [place] [address], [place] Sodium [Moles/Vol] 137 mmol/L Normal 136-145 [facility] Comment on above: Order Comment: No: D o not add to previous draw Performed By: #### 5 0103 #### [facility] [address] [place] [address], [facility] Urea nitrogen [Mass/Vol] 15 mg/dL Normal 7-25 [facility] Comment on above: Order Comment: No: D o not add to previous draw Performed By: #### 5 0103 #### [facility] [address] [place] [address], [facility] CBC COMPLETE BLOOD COUNTon 0 - Erythrocyte distribution width (RBC) [Ratio] 13.9 % Normal 11.5-15.0 [facility] Comment on above: Order Comment: No: D o not add to previous draw Performed By: #### 5 0103 #### [facility] [address] [place] [address], [facility] Hematocrit (Bld) [Volume fraction] 50.0 % Normal 39.0-50.0 [facility] Comment on above: Order Comment: No: D o not add to previous draw Performed By: #### 5 0103 #### [facility] [address] [place] [address], [facility] Hemoglobin (Bld) [Mass/Vol] 16.0 g/dL Normal 13.0-17.0 [facility] Comment on above: Order Comment: No: D o not add to previous draw Performed By: #### 5 0103 #### [facility] [address] [place] [id number], [facility] MCH (RBC) [Entitic mass] 27.5 pg Normal 27.0-33.0 [facility] Comment on above: Order Comment: No: D o not add to previous draw Performed By: #### 5 0103 #### [facility] [address] [place] [address], [facility] MCHC (RBC) [Mass/Vol] 32.0 g/dL Normal 32.0-35.0 [facility] Comment on above: Order Comment: No: D o not add to previous draw Performed By: #### 5 0103 #### [facility] [address] [place] [id number], [facility] MCV (RBC) [Entitic vol] 85.9 fL Normal 82.0-98.0 [facility] Comment on above: Order Comment: No: D o not add to previous draw Performed By: #### 5 0103 #### [facility] [address] [place] [id number], [facility] Nucleated RBC/100 WBC (Bld) [Ratio] 0 % Normal 0-0 [facility] Comment on above: Order Comment: No: D o not add to previous draw Performed By: #### 5 0103 #### [facility] [address] [place] [address], [facility] PLAT CNT 249 10*3/uL Normal 150-400 [facility] Comment on above: Order Comment: No: D o not add to previous draw Performed By: #### 5 0103 #### [facility] [address] [place] [address], [facility] RBC (Bld) [#/Vol] 5.82 10*6/uL High 4.20-5.70 [facility] Comment on above: Order Comment: No: D o not add to previous draw Performed By: #### 5 0103 #### [facility] [address] [place] [address], [facility] WBC (Bld) [#/Vol] 15.85 10*3/uL High 4.00-10.60 [facility] Comment on above: Order Comment: No: D o not add to previous draw Performed By: #### 5 0103 #### [facility] [address] [facility] Operative Reporton 9 Operative Report MR#: [id number] [facility] Pt. Name: Matty Garces Room #: [id number] Discharge Date: Birthdate: 1970 OPERATIVE REPORT DATE OF SURGERY: 01/30/2019 SURGEON: Luciano Vieira M.D. 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 POSTOPERATIVE DIAGNOSIS: Failed instrumentation at C6-7 on the right. MANAGER QUALITY: ADENIKE Lugo. ANESTHESIA: Endotracheal, Hogan. PROCEDURES: Redo [...] Vieira M.D. Date Trans: 01/31/2019 02:31 Eze/sasha [id number] cc: Venus Mendez M.D. [address] [place] [address] Normal [facility] CERVICAL SPINE 2 OR 3 Son 01-30-2019 CERVICAL SPINE 2 OR 3 [facility] Department of Radiology [address] [place] [address] Patient Name: MATTY GARCES : 1970 Sex: M Age: Race: White Pt. Location: Patient Status: O Ordered Date: 01/30/2019 7:05:00 AM Completed Date: 01/30/2019 04:12 PM Requesting Provider: LUCIANO VIEIRA Attending Provider: LUCIANO VIEIRA Report Copy To: Signs & Symptoms: C6-7 ACDF History: C6-7 ACDF Comments: C6-7 ACDF Exam: CERVICAL SPINE 2 OR 3 [facility] CERVICAL SPINE 2 OR 3 S [...] documentation Electronically signed by:Justus Montano. Transcribed by: [email or web address], User Resident: Electronically Signed by: JUSTUS MONTANO @ 01/30/2019 04:18 PM Normal [facility] Comment on above: Order Comment: C6-7 ACDF POC GLUCOSE LABon 01-30-2019 Glucose [Mass/Vol] 106 mg/dL High 70-100 [facility] Comment on above: Performed By: #### 5 0103 #### [facility] [address] [facility] *MRSA/MSSA DNA NASALon 01-23 *MRSA/MSSA DNA NASAL Clinical Report: (D ) Specimen: NASAL SWAB Collected: 01/23/2019 15:02 Status: Final Last Updated: 01/23/2019 20:14 MSSA DNA (Final) Methicillin Susceptible Staphylococcus aureus DNA Detected MRSA DNA (Final) No Methicillin Resistant Staphylococcus aureus DNA Detected Normal [facility] Comment on above: Performed By: #### 5 0103 #### [facility] [address] [facility]. [address] APTTon 01-23-2019 aPTT Coag (Bld) [Time] 35.4 s High 25.0-35.0 [facility] Comment on above: Result Comment: [...] THIS PURPOSE. Performed By: #### 5 7307, 03341 #### [facility] [address] [place] [address], [facility] BASIC METABOLIC PANELon 01-11 Calcium [Mass/Vol] 9.5 mg/dL Normal 8.6-10.3 [facility] Comment on above: Performed By: #### 5 7307, 96468 #### [facility] [address] [place] [address], [facility] Chloride [Moles/Vol] 101 mmol/L Normal 98-107 [facility] Comment on above: Performed By: #### 5 7306, 92355 #### [facility] [address] [place] [address], [place] CO2 [Moles/Vol] 29 mmol/L Normal 21-31 [facility] Comment on above: Performed By: #### 5 7306, 47077 #### [facility] [address] [place] [address], [place] Creatinine [Mass/Vol] 1.08 mg/dL Normal 0.70-1.30 [facility] Comment on above: Performed By: #### 5 7306, 94599 #### [facility] [address] [place] [address], [place] GFR/1.73 sq M predicted among blacks MDRD (S/P/Bld) [Vol rate/Area] mL/min/{1.73_m2} Normal >60 [facility] Comment on above: Performed By: #### 5 7306, 15688 #### [facility] [address] [place] [address], [place] GFR/1.73 sq M predicted among non-blacks MDRD (S/P/Bld) [Vol rate/Area] mL/min/{1.73_m2} Normal >60 [facility] Comment on above: Performed By: #### 5 73, 43183 #### [facility] [address] [place] [address], [place] Glucose [Mass/Vol] 87 mg/dL Normal 70-100 [facility] Comment on above: Performed By: #### 5 7307, 84964 #### [facility] [address] [place] [address], [place] Potassium [Moles/Vol] 4.0 mmol/L Normal 3.5-5.1 [facility] Comment on above: Performed By: #### 5 73, 89958 #### [facility] [address] [place] [address], [facility] Sodium [Moles/Vol] 137 mmol/L Normal 136-145 [facility] Comment on above: Performed By: #### 5 7307, 06834 #### [facility] [address] [place] [address], [facility] Urea nitrogen [Mass/Vol] 12 mg/dL Normal 7-25 [facility] Comment on above: Performed By: #### 5 73, 09849 #### [facility] [address] [place] [address], [facility] CBC W/DIFFon 01-23-2019 ABS BASOPHILS 0.1 10*3/uL Normal 0.0-0.2 [facility] Comment on above: Performed By: #### 5 73Al, 96965 #### [facility] [address] [facility]. [address] ABS IMM GRANS 0.0 10*3/uL Normal 0.0-0.2 [facility] Comment on above: Performed By: #### 5 73, 46562 #### [facility] [address] [place] [address], [facility] ABS NEUTROPHILS 5.3 10*3/uL Normal 1.6-7.[address] [facility] Comment on above: Performed By: #### 5 7307, 73922 #### [facility] [address] [place] [address], [facility] Basophils/100 WBC (Bld) 0.9 % Normal 0.0-1.0 [facility] Comment on above: Performed By: #### 5 7307, 04463 #### [facility] [address] [place] [address], [facility] Eosinophils (Bld) [#/Vol] 0.2 10*3/uL Normal 0.0-0.5 [facility] Comment on above: Performed By: #### 5 7306, 47438 #### [facility] [address] [place] [address], [facility] Eosinophils/100 WBC (Bld) 2.3 % Normal 0.0-6.0 [facility] Comment on above: Performed By: #### 7306, 04662 #### [facility] [address] [place] [id number], [facility] Erythrocyte distribution width (RBC) [Ratio] 13.8 % Normal 11.5-15.0 [facility] Comment on above: Performed By: #### 7306, 70862 #### [facility] [address] [place] [address], [facility] Hematocrit (Bld) [Volume fraction] 49.6 % Normal 39.0-50.0 [facility] Comment on above: Performed By: #### 7306, 33613 #### [facility] [address] [place] [id number], [facility] Hemoglobin (Bld) [Mass/Vol] 16.4 g/dL Normal 13.0-17.0 [facility] Comment on above: Performed By: #### 5 7306, 71924 #### [facility] [address] [place] [address], [facility] IMMATURE GRANS 0.5 % Normal 0.0-1.0 [facility] Comment on above: Performed By: #### 5 7306, 91100 #### [facility] [address] [place] [address], [facility] Lymphocytes (Bld) [#/Vol] 1.2 10*3/uL Normal 1.2-4.0 [facility] Comment on above: Performed By: #### 5 7306, 52796 #### [facility] [address] [place] [address], [place] Lymphocytes/100 WBC (Bld) 16.6 % Low 20.0-45.0 [facility] Comment on above: Performed By: #### 5 7306, 65452 #### [facility] [address] [place] [address], [facility] MCH (RBC) [Entitic mass] 27.8 pg Normal 27.0-33.0 [facility] Comment on above: Performed By: #### 5 7306, 70561 #### [facility] [address] MCHC (RBC) [Mass/Vol] 33.1 g/dL Normal 32.0-35.0 [facility] Comment on above: Performed By: #### 5 7306, 29511 #### [facility] [address] [place] [address], [facility] MCV (RBC) [Entitic vol] 84.2 fL Normal 82.0-98.0 [facility] Comment on above: Performed By: #### 5 7306, 46252 #### [facility] [address] [place] [address], [facility] Monocytes (Bld) [#/Vol] 0.7 10*3/uL Normal 0.1-1.0 [facility] Comment on above: Performed By: #### 5 7306, 72516 #### [facility] [address] [place] [address], [facility] MONOS 9.4 % Normal 5.0-12.0 [facility] Comment on above: Performed By: #### 5 7306, 98344 #### [facility] [address] [place] [address], [facility] Neutrophils/100 WBC (Bld) 70.3 % Normal 40.0-72.0 [facility] Comment on above: Performed By: #### 5 7306, 86217 #### [facility] [address] [place] [address], [facility] Nucleated RBC/100 WBC (Bld) [Ratio] 0 % Normal 0-0 [facility] Comment on above: Performed By: #### 5 7307, 35329 #### [facility] [address] [place] [address], [facility] PLAT CNT 235 10*3/uL Normal 150-400 [facility] Comment on above: Performed By: #### 5 7307, 44945 #### [facility] [address] RBC (Bld) [#/Vol] 5.89 10*6/uL High 4.20-5.70 The [facility] Comment on above: Performed By: #### 5 7307, 62939 #### [facility] [address] WBC (Bld) [#/Vol] 7.48 10*3/uL Normal 4.00-10.60 [facility] Comment on above: Performed By: #### 5 7307, 56074 #### [facility] [address] PROTHROMBIN TIMEon 9 INR Coag (PPP) [Relative time] 1.12 {INR} Normal 0.91-1.16 [facility] Comment on above: Result Comment: [...] CHEST 1995;108:231S-246S. Performed By: #### 5 7307, 47120 #### [facility] [address] PT Coag (PPP) [Time] 14.4 s Normal 12.3-14.8 [facility] Comment on above: Result Comment: ALL RESULTS MUST BE INTERPRETED WITH RESPECT TO BLOOD DRAWING ARTIFACT OR DILUTION ERROR OF ANTICOAGULANT AT THE TIME OF SAMPLING. Performed By: #### 5 7307, 21846 #### [facility] [address] TYPE AND SCREENon 01-23-2019 ABO INTERPRETATION A Normal [facility] Comment on above: Performed By: #### 5 7307, 52731 #### [facility] [address] [place] [address], [facility] RH INTERPRETATION Positive Normal The [facility] Comment on above: Performed By: #### 5 7307, 74762 #### [facility] [address] [facility] 3D CERVICAL SPINE WO CONT RASTon 01-12-2019 CT 3D CERVICAL SPINE WO CONTRAST [facility] Department of Radiology [address] [place] [id number] Patient Name: MATTY GARCES : 1970 Sex: M Age: Race: White Pt. Location: Patient Status: D Ordered Date: 01/10/2019 2:15:00 PM Completed Date: 01/12/2019 10:32 AM Requesting Provider: LUCIANO VIEIRA Attending Provider: LUCIANO VIEIRA Report Copy To: VENUS MENDEZ Signs & Symptoms: M48.02 Spinal stenosis, cervical region I10 History: [place] para auth # [id number] 01/10/19-02/09/19 [id number] *er Comments: Exam: CT 3D CERVICAL SPINE [...] incomplete Electronically signed by:Ten Garland. Transcribed by: [email or web address], User Resident: Electronically Signed by: TEN GARLAND @ 01/13/2019 09:18 AM [place] [facility] CERVICAL SPINE 2 OR 3 [facility] 01-05-2019 CERVICAL SPINE 2 OR 3 [facility] Department of Radiology [address] [place] [id number] Patient Name: MATTY GARCES : 1970 [...] , Exam: CERVICAL SPINE 2 OR 3 [facility] CERVICAL SPINE 2 OR 3 S [...] findings. Electronically signed by:Ten Garland. Transcribed by: [email or web address], User Resident: SHELLY DELA CRUZ Electronically Signed by: TEN GARLAND @ 01/05/2019 12:37 PM I personally read this/these film(s) with this resident Normal [facility] Comment on above: Order Comment: , , = ========= , Ordering Provider - LUCIANO VIEIRA MD , CERVICAL SPINE 2 OR 3 [facility] 08-30-2018 CERVICAL SPINE 2 OR 3 S [facility] Department of Radiology [address] [place] [phone] Patient Name: MATTY GARCES : 1970 Sex: M Age: Race: White Pt. Location: Patient Status: O Ordered Date: 08/30/2018 9:35:00 AM Completed Date: 08/30/2018 09:43 AM Requesting Provider: LUCIANO VIEIRA Attending Provider: LUCIANO VIEIRA Report Copy To: VENUS MENDEZ Signs & Symptoms: M50.90 Cervical disc disorder, unsp, unspecified cervical region I10 History: [place] Comments: , POST OP XRAY AP/LAT ONLY [...] findings. Electronically signed by:Bella King. Transcribed by: [email or web address], User Resident: RYAN HEAD Electronically Signed by: BELLA KING @ 08/30/2018 05:45 PM I personally read this/these film(s) with this resident Normal [facility] Comment on above: Order Comment: , POS T OP XRAY AP/LAT ONLY , POST OP XRAY AP/LAT ONLY , , , Ordering Provider - LUCIANO VIEIRA MD , Operative Reporton 8 Operative Report MR#: [id number] [facility] Pt. Name: Matty Garces Room #: [id number] Discharge Date: Birthdate: 1970 OPERATIVE REPORT DATE OF SURGERY: 08/17/2018 SURGEON: Luciano Vieira M.D. PREOPERATIVE DIAGNOSIS: Herniated cervical disk at C6-7. POSTOPERATIVE DIAGNOSIS: Herniated cervical disk at C6-7. MANAGER QUALITY: ADENIKE Larios. ANESTHESIA: Endotracheal, Braida. PROCEDURE: Anterior [...] Vieira M.D. Date Trans: 08/17/2018 11:25 P/sasha [id number] cc: Venus Mendez M.D. [address] [facility] [address] [place] [facility] CERVICAL SPINE 2 OR 3 [facility] 08-17-2018 CERVICAL SPINE 2 OR 3 [facility] Department of Radiology [address] [place] [address] Patient Name: MATTY GARCES : 1970 Sex: M Age: Race: White Pt. Location: Patient Status: I Ordered Date: 08/17/2018 8:30:00 AM Completed Date: 08/17/2018 11:49 AM Requesting Provider: LUCIANO VIEIRA Attending Provider: LUCIANO VIEIRA Report Copy To: Signs & Symptoms: C6-7 ACDF with History: C6-7 ACDF with Comments: C6-7 ACDF with Exam: CERVICAL SPINE 2 OR 3 [facility] CERVICAL SPINE 2 OR 3 S [...] findings. Electronically signed by:Bernice Hoyt. Transcribed by: [email or web address], User Resident: EMILE TINAJERO Electronically Signed by: BERNICE HOYT @ 08/18/2018 01:06 PM I personally read this/these film(s) with this resident Normal [facility] Comment on above: Order Comment: C6-7 ACDF with POC GLUCOSE LABon 08-17-2018 Glucose [Mass/Vol] 113 mg/dL High 70-100 [facility] Comment on above: Performed By: #### 8 5499 #### [facility] [address] RBC'S 2 UNITSon 08-17-2018 CROSSMATCH INTERP 1 COMP Normal [facility] Comment on above: Performed By: #### 8 6002 #### [facility] [address] CROSSMATCH INTERP 2 COMP Normal [facility] Comment on above: Performed By: #### 8 6002 #### [facility] [address] PRODUCT CODE 1 E0336 Normal [facility] Comment on above: Performed By: #### 8 6002 #### [facility] [address] PRODUCT CODE 2 E0336 Normal [facility] Comment on above: Performed By: #### 8 6002 #### [facility] [address] PRODUCT STATUS [address] [facility] Comment on above: Result Comment: Resu lt changed by IF on 08/20/2018 07:48. The previous value was XM. Performed By: #### 8 6002 #### [facility] [address] [place] [address], [facility] PRODUCT STATUS [address] [facility] Comment on above: Result Comment: Resu lt changed by IF on 08/20/2018 07:48. The previous value was XM. Performed By: #### 8 6002 #### [facility] [address] [place] [address], [place] UNIT ABO 1 A Normal [facility] Comment on above: Performed By: #### 8 6002 #### [facility] [address] [place] [address], [facility] UNIT ABO 2 A Normal [facility] Comment on above: Performed By: #### 8 6002 #### [facility] [address] [place] [address], [facility] UNIT ID 1 [id number] Normal [facility] Comment on above: Performed By: #### 8 6002 #### [facility] [address] [place] [address], [facility] UNIT ID 2 [id number] Normal [facility] Comment on above: Performed By: #### 8 6002 #### [facility] [address] [facility] [address], [place] UNIT RH 1 Positive Normal [facility] Comment on above: Performed By: #### 8 6002 #### [facility] [address] [place] [address], [place] UNIT RH 2 Positive Normal [facility] Comment on above: Performed By: #### 8 6002 #### [facility] [address] [place] [address], [facility] *MRSA/MSSA CULTUREon 018 *MRSA/MSSA CULTURE Clinical Report: (D) Specimen: NASAL SWAB Collected: 08/02/2018 12:37 Status: Final Last Updated: 08/03/2018 14:26 ISO (Final) No Methicillin Resistant Staphylococcus aureus Isolated (MRSA) ISO (Final) Methicillin Sensitive Staphylococcus aureus (MSSA) Isolated Normal [facility] Comment on above: Performed By: #### 3 1302 #### [facility] [address] APTTon 08-02-2018 aPTT Coag (Bld) [Time] 31.2 s Normal 25.0-35.0 [facility] Comment on above: Result Comment: [...] THIS PURPOSE. Performed By: #### 5 7307, 64840 #### [facility] [address] BASIC METABOLIC PANELon 07-15 Calcium [Mass/Vol] 9.4 mg/dL Normal 8.6-10.3 [facility] Comment on above: Performed By: #### 0 0071 #### [facility] [address] [place] [address], [facility] Chloride [Moles/Vol] 103 mmol/L Normal 98-107 [facility] Comment on above: Performed By: #### 0 0071 #### [facility] [address] [place] [address], [facility] CO2 [Moles/Vol] 29 mmol/L Normal 21-31 [facility] Comment on above: Performed By: #### 0 0071 #### [facility] [address] [place] [address], [facility] Creatinine [Mass/Vol] 1.06 mg/dL Normal 0.70-1.30 [facility] Comment on above: Performed By: #### 0 0071 #### [facility] [address] [place] [address], [facility] GFR/1.73 sq M predicted among blacks MDRD (S/P/Bld) [Vol rate/Area] mL/min/{1.73_m2} Normal >60 [facility] Comment on above: Performed By: #### 0 0071 #### [facility] [address] [place] [address], [facility] GFR/1.73 sq M predicted among non-blacks MDRD (S/P/Bld) [Vol rate/Area] mL/min/{1.73_m2} Normal >60 [facility] Comment on above: Performed By: #### [id number] #### [facility] [address] [place] [address], [facility] Glucose [Mass/Vol] 84 mg/dL Normal 70-100 [facility] Comment on above: Performed By: #### [id number] #### [facility] [address] [place] [address], [facility] Potassium [Moles/Vol] 4.0 mmol/L Normal 3.5-5.1 [facility] Comment on above: Performed By: #### [id number] #### [facility] [address] [place], [place] [address], [facility] Sodium [Moles/Vol] 140 mmol/L Normal 136-145 [facility] Comment on above: Performed By: #### 0 0071 #### [facility] [address] [place] [address], [facility] Urea nitrogen [Mass/Vol] 20 mg/dL Normal 7-25 [facility] Comment on above: Performed By: #### 0 0071 #### [facility] [address] [place] [address], [place] CBC W/DIFFon 08-02-2018 ABS BASOPHILS 0.1 10*3/uL Normal 0.0-0.2 [facility] Comment on above: Performed By: #### 5 0103 #### [facility] [address] [place] [address], [facility] ABS IMM GRANS 0.1 10*3/uL Normal 0.0-0.2 [facility] Comment on above: Performed By: #### 5 0103 #### [facility] [address] [place] [address], [facility] ABS NEUTROPHILS 4.2 10*3/uL Normal 1.6-7.[address] [facility] Comment on above: Performed By: #### 5 0103 #### [facility] [address] [place] [address], [facility] Basophils/100 WBC (Bld) 1.3 % High 0.0-1.0 [facility] Comment on above: Performed By: #### 5 0103 #### [facility] [address] [place] [address], [facility] Eosinophils (Bld) [#/Vol] 0.1 10*3/uL Normal 0.0-0.5 [facility] Comment on above: Performed By: #### 5 0103 #### [facility] [address] [place] [address], [facility] Eosinophils/100 WBC (Bld) 2.0 % Normal 0.0-6.0 [facility] Comment on above: Performed By: #### 5 0103 #### [facility] [address] Erythrocyte distribution width (RBC) [Ratio] 13.6 % Normal 11.5-15.0 [facility] Comment on above: Performed By: #### 5 3 #### [facility] [address] [place] [address], [facility] Hematocrit (Bld) [Volume fraction] 44.3 % Normal 39.0-50.0 [facility] Comment on above: Performed By: #### 5 0103 #### [facility] [address] [place] [address], [facility] Hemoglobin (Bld) [Mass/Vol] 15.1 g/dL Normal 13.0-17.0 [facility] Comment on above: Performed By: #### 5 3 #### [facility] [address] [place] [address], [facility] IMMATURE GRANS 1.1 % High 0.0-1.0 The [facility] Comment on above: Performed By: #### 3 #### [facility] [address] [place] [address], [facility] Lymphocytes (Bld) [#/Vol] 1.2 10*3/uL Normal 1.2-4.0 [facility] Comment on above: Performed By: #### 5 3 #### [facility] [address] Lymphocytes/100 WBC (Bld) 18.3 % Low 20.0-45.0 [facility] Comment on above: Performed By: #### 5 3 #### [facility] [address] [place] [address], [facility] MCH (RBC) [Entitic mass] 29.0 pg Normal 27.0-33.0 [facility] Comment on above: Performed By: #### 5 3 #### [facility] [address] [place] [address], [facility] MCHC (RBC) [Mass/Vol] 34.1 g/dL Normal 32.0-35.0 [facility] Comment on above: Performed By: #### 5 3 #### [facility] [address] [place] [address], [facility] MCV (RBC) [Entitic vol] 85.0 fL Normal 82.0-98.0 [facility] Comment on above: Performed By: #### 5 0103 #### [facility] [address] [place] [address], [facility] Monocytes (Bld) [#/Vol] 0.7 10*3/uL Normal 0.1-1.0 [facility] Comment on above: Performed By: #### 102 #### [facility] [address] [place] [address], [facility] MONOS 11.1 % Normal 5.0-12.0 [facility] Comment on above: Performed By: #### 102 #### [facility] [address] [place] [address], [facility] Neutrophils/100 WBC (Bld) 66.2 % Normal 40.0-72.0 [facility] Comment on above: Performed By: #### 102 #### [facility] [address] [place] [address], [facility] Nucleated RBC/100 WBC (Bld) [Ratio] 0 % Normal 0-0 [facility] Comment on above: Performed By: #### 102 #### [facility] [address] [place] [address], [facility] PLAT CNT 179 10*3/uL Normal 150-400 The [facility] Comment on above: Performed By: #### 102 #### [facility] [address] [address], [facility] RBC (Bld) [#/Vol] 5.21 10*6/uL Normal 4.20-5.70 The [facility] Comment on above: Performed By: #### 102 #### [facility] [address] [place] [address], [facility] WBC (Bld) [#/Vol] 6.39 10*3/uL Normal 4.00-10.60 The [facility] Comment on above: Performed By: #### 3 #### [address] CERVICAL SPINE 4 OR 5 VIEWSo n 08-02-2018 CERVICAL SPINE 4 OR 5 VIEWS [facility] Department of Radiology [address] [place] [id number] Patient Name: MATTY GARCES : 1970 [...] findings. Electronically signed by:Bella King. Transcribed by: [email or web address], User Resident: EMILE TINAJERO Electronically Signed by: BELLA KING @ 08/03/2018 11:58 AM I personally read this/these film(s) with this resident Normal [facility] Comment on above: Order Comment: , PRE OP XRAY AP/LAT \EANDE\ FLEX/EX , PREOP XRAY AP/LAT \EANDE\ FLEX/EX , , , Ordering Provider - LUCIANO VIEIRA MD , PROTHROMBIN TIMEon 8 INR Coag (PPP) [Relative time] 1.15 {INR} Normal 0.91-1.16 [facility] Comment on above: Result Comment: [...] CHEST 1995;108:[id number]. Performed By: #### 5 7307, [id number] #### [facility] [address] [place] [address], [facility] PT Coag (PPP) [Time] 14.7 s Normal 12.3-14.8 [facility] Comment on above: Result Comment: ALL RESULTS MUST BE INTERPRETED WITH RESPECT TO BLOOD DRAWING ARTIFACT OR DILUTION ERROR OF ANTICOAGULANT AT THE TIME OF SAMPLING. Performed By: #### 5 7307, [id number] #### [facility] [address] [place] [address], [facility] TYPE AND SCREENon 08-02-2018 ABO INTERPRETATION A Normal The [facility] Comment on above: Order Comment: 2 uni ts 2 units 2 units 2 units 2 units Performed By: #### 6 2586 #### [facility] [address] [place] [address], [facility] RH INTERPRETATION Positive Normal The [facility] Comment on above: Order Comment: 2 uni ts 2 units 2 units 2 units 2 units Performed By: #### 6 2586 #### [facility] [address] [place] [id number], [facility] URINALYSIS REFLEXon 08-02-20 18 Appearance (U) CLEAR Normal CLEAR [facility] Comment on above: Performed By: #### 3 0965 #### [facility] [address] [place] [id number], [facility] Bilirubin [Mass/Vol] Negative Normal NEGATIVE [facility] Comment on above: Performed By: #### 3 0985 #### [facility] [address] [place] [address], [facility] BLOOD Negative Normal NEGATIVE [facility] Comment on above: Performed By: #### 3 0965 #### [facility] [address] [place] [address], [facility] Color (U) YELLOW Normal YELLOW [facility] Comment on above: Performed By: #### 3 0965 #### [facility] [address] [place] [address], [facility] Glucose [Mass/Vol] 150 mg/dL Abnormal NEGATIVE [facility] on above: Performed By: #### 3 0965 #### [facility] [address] [place] [address], [facility] KETONE Negative Normal NEGATIVE [facility] Comment on above: Performed By: #### 3 0965 #### [facility] [address] [place] [address], [place] Negative Normal NEGATIVE [facility] Comment on above: Performed By: #### 3 0965 #### [facility] [address] [place] [address], [facility] MICRO NOT DONE negative chemical reactions unless requested in original order Normal [facility] Comment on above: Performed By: #### 3 0965 #### [facility] [address] [place] [address], [facility] Nitrite Ql (U) Negative Normal NEGATIVE The [facility] Comment on above: Performed By: #### 3 0965 #### [facility] [address] [place] [address], [facility] pH (Bld) 5.0 Normal 5.0-8.0 [facility] Comment on above: Performed By: #### 3 0965 #### [facility] [address] [place] [address], [facility] Protein (U) [Mass/Vol] Negative Normal NEGATIVE [facility] Comment on above: Performed By: #### 3 0965 #### [facility] [address] [place] [address], [facility] SPEC GRAV 1.024 High 1.015-1.020 The [facility] Comment on above: Performed By: #### 3 0965 #### [facility] [place] [address], [facility] Vital Signs Date Time Vital Sign Value Performing Clinician Molly bunn 02-25-2022 10:30-0400 Blood Pressure Location Viola Lue [facility] 02-25-2022 10:30-0400 Diastolic blood pressure 107 mm[Hg] Viola Lue [facility] 02-25-2022 10:30-0400 Heart rate 74 /min Viola Lue [facility] 02-25-2022 10:30-0400 Respiratory rate 16 /min Viola Lue [facility] 02-25-2022 10:30-0400 Systolic blood pressure 157 mm[Hg] Viola Lue [facility] Encounters Encounter Date Encounter Type Care Provider Facility Start: 09-27-2023 End: 09-27-2023 ambulatory RUBÉN GEIGER Not Available Start: 08-30-2023 End: 08-31-2023 [facility] Start: 07-12-2023 End: 07-13-2023 ambulatory Diallo Beauchamp MD [facility] Start: 06-14-2023 End: 06-15-2023 ambulatory Diallo Beauchamp MD Facility:[facility] Start: 03-11-2023 End: 03-11-2023 ambulatory Rubén Geiger Facility:[facility] Start: 12-06-2022 End: 12-06-[address] VENUS MENDEZ . Facility: Start: 12-05-2022 Encounter for genera l adult medical examination without abnormal findings DR VENUS MENDEZ . The [facility] Start: 12-01-2022 End: 12-02-[address] VENUS [...] encounter procedure Viola Grullon [facility] Start: 01-04-2022 End: 01-05-[address] VENUS MENDEZ . Facility: Start: 01-30-2019 End: 02-01-2019 Evaluation and management of inpatient PROVIDER UNKNOWN Facility:[facility] Start: 08-17-2018 End: 08-18-2018 Patient encounter procedure PROVIDER UNKNOWN Facility:[facility] Procedures Date Procedure Procedure Detail Performing Clinician Start: 12-01-[address] FRANKLIN MENDEZ . Comment on above: Performed By: #### P [facility] #### [facility] [address] [place] [address] Dr. Shabnam Rae Start: 01-30-2019 FUSION CERV JT W INT BD FUS DEV, ANT APPR A COL, OPEN [facility] Start: 01-30-2019 REMOVAL OF INT FIX F ROM CERVCAL VERTEBRA, OPEN APPROACH [facility] Start: 01-23-2019 Antibody screen PROVIDE R UNKNOWN Comment on above: Performed By: #### 5 7307, [id number] #### [facility] [address] [facility] [address] Start: 08-17-2018 ANESTH SPINE CORD SURGERY [...] units Performed By: #### 6 2586 #### [facility] [address] Colonoscopy Viola Grullon Hemorrhoids (disorder) [facility] [employer] Hernia of abdominal cavity (disorder) [facility] [employer] Tonsillectomy [facility] [employer] Payers Date Payer Category Payer Self-pay 2022 Medicaid [id number] 2022 Unknown 1970 Unknown [id number] 2.16.8 [id number] 1970 Unknown [id number] 2.16.8 [id number] 1970 Unknown [id number] 2.16.84 0.1.956400.3.579.2.593 1970 Unknown [id number] 2.16.84 [id number] 1970 Unknown [id number] 2.16.84 0.1.701285.3.579.2.593 1970 Unknown [id number] 2.16.84 0.1.872589.3.579.2.593 1970 Unknown [id number] 2.16.84 0.1.105936.3.579.2.593 1970 Unknown [id number] 2.16.84 0.1.340864.3.579.2.593 1970 Unknown [id number] 2.16. [id number] 1970 Unknown [id number] 2.16. 840.1.950678.3.579.2.196 1970 Unknown [id number] 2.16. 840.1.703068.3.579.2.196 1970 Unknown [id number] 2.16.84 0.1.958029.3.579.2.1259 1959 Unknown [id number] Unknown [id number] Unknown [id number] 2.16.8 [id number] Social History Date Type Detail Facility Tobacco smoking status No Smoking Status Entered [facility] Sex Assigned At Male [facility] Functional Status Date Assessment Result Facility 02-25-2022 Functional Status N/A [facility] Progress note 06-09-2023 Note Date & Type Note Facility 06-09-2023 Note [facility] Continue GDMT- Diuretic therapy Monitor daily weights, I&O, fluid restriction 1.5-2L/day, renal function and electrolytes- [facility] Clinical Note 03-26-2022 Note Date [...] authenticated by: ALVINA CAICEDO Date: 2022-03-26 10:47 [facility] Discharge instructions 02-25-2022 Note Date & [...] Watch the hydrocele for any changes. Take ioep-njk-febhujn and prescription medicines only as told by [...] 02/17/2011 Document Revised: 09/10/2018 Document Reviewed: 09/10/2018 [employer] Patient Education 2020 [employer]. Follow Up Care 01/28/2022 10:36:35 With:Mitchel DELGADO, [place] Gregorio, U[place] Address: When: Unknown [facility] Evaluation + Plan note Note Date & Type Note Facility Evaluation + Plan note No data available for this section [facility] Progress note Note Date & Type Note Facility Progress note No data available for this section [facility] Summary Purpose Family History No Family [...] Records Found Hospital Course Note MR#: [id number] [facility] Pt. Name: Matty Garces Admitted: 01/30/2019 [...] section and content) DATE CREATED AUTHOR 07/19/2019 [facility] DATE CREATED AUTHOR AUTHOR'S ORGANIZ ATION 02/27/2022 [facility] DATE CREATED AUTHOR AUTHOR'S ORGANIZ ATION 12/08/2022 [facility] DATE CREATED AUTHOR AUTHOR'S ORGANIZ ATION 03/17/[address] [facility] DATE CREATED AUTHOR AUTHOR'S ORGANIZ ATION 06/17/2023 [facility] DATE CREATED AUTHOR AUTHOR'S ORGANIZ ATION 09/03/2023 [facility] DATE CREATED AUTHOR AUTHOR'S ORGANIZ ATION 09/27/2023 [facility] EPIC Care Team (unrecognized sect ion and content) Personnel Name: Venus Mendez MD Address: [address] [place] [address] FOR RECORDS PERTAINING TO PATIENTS WHO ARE [...] BE BASED ON THE PRIMARY CLINICAL RECORDS. [facility] [employer] provides no warranty or guarantee of the accuracy or completeness of information in this document.
== END 2023-10-29 11:04 | disposition home or self-care (01) ==
LOC: RAD 11:04
PROVIDERS: PCP Family Medicine; Visit Provider Family Medicine
DX: M79.671 Pain in right foot (principal); S92.514A Nondisplaced fracture of proximal phalanx of right lesser toe(s), initial encounter for closed fracture
CPT/HCPCS: 73630

== ENCOUNTER 2023-11-11 12:12 | Outpatient (OUT) | payer MEDICAID, SELFPAY ==
[2023-11-11 12:36] LABS: Basophils Percent Auto 0.4 % (0.2-2.0); Eosinophils Absolute Auto 0.1 10^3/uL (0.0-0.7); Eosinophils Percent Auto 0.8 % (0.9-7.0); Hematocrit 51.9 % (42.0-54.0); Hemoglobin 15.4 g/dL (14.0-18.0); Immature Granulocytes Abs Auto 0.06 10^3/uL (0.00-0.03); Immature Granulocytes Pct Auto 0.6 % (0.0-0.5); Lymphocytes Absolute Auto 0.9 10^3/uL (1.2-3.8); Lymphocytes Percent Auto 9.6 % (20.5-60.0); Mean Corpuscular HGB Conc 29.7 g/dL (29.9-35.2); Mean Corpuscular Hemoglobin 25.7 pg (25.9-34.0); Mean Corpuscular Volume 86.5 fL (80.0-94.0); Mean Platelet Volume 9.9 fL (9.5-13.5); Monocytes Absolute Auto 0.7 10^3/uL (0.3-0.8); Monocytes Percent Auto 7.2 % (1.7-12.0); Neutrophils Absolute Auto 7.6 10^3/uL (1.4-6.5); Neutrophils Percent Auto 81.4 % (43.0-75.0); Platelet Count 124 10^3/uL (150-450); Red Cell Distribution Width 17.4 % (11.0-15.0); White Blood Count 9.3 10^3/uL (4.0-11.0)
[2023-11-11 12:46] LABS: Ammonia 15 umol/L (11-32)
[2023-11-11 12:56] LABS: Estimated Average Glucose 134 mg/dL; Glycohemoglobin A1C 6.3 % (4.5-6.2)
[2023-11-11 14:25] LABS: Alanine Aminotransferase 45 U/L (16-63); Albumin Globulin Ratio 0.8; Albumin Level 3.4 g/dL (3.4-5.0); Alkaline Phosphatase 93 U/L (46-116); Anion Gap 6.9; Aspartate Amino Transferase 25 U/L (15-37); BUN Creatinine Ratio 11.6; Bilirubin Total 0.8 mg/dL (0.2-1.0); Calcium 9.2 mg/dL (8.5-10.1); Carbon Dioxide 35.3 mmol/L (21.0-32.0); Chloride 102 mmol/L (98-107); Estimated GFR (African America >60 (>=60); Estimated GFR (Non-African Ame >60 (>=60); Free T3 2.62 pg/mL (2.18-3.98); Globulin 4.3 g/dL; Glucose 95 mg/dL (74-106); Potassium 4.2 mmol/L (3.5-5.1); Sodium 140 mmol/L (136-145); Thyroid Stimulating Hormone 0.957 uIU/mL (0.358-3.740); Total Protein 7.7 g/dL (6.4-8.2)
== END 2023-11-11 12:13 | disposition home or self-care (01) ==
LOC: LAB 12:12
PROVIDERS: PCP Family Medicine; Visit Provider Family Medicine
DX: R61 Generalized hyperhidrosis (principal); E11.9 Type 2 diabetes mellitus without complications; I11.0 Hypertensive heart disease with heart failure
CPT/HCPCS: 36415; 80053; 82140; 83036; 83880; 84436; 84443; 84481; 85025

== ENCOUNTER 2023-11-17 10:12 | Outpatient (OUT) | payer MEDICAID, SELFPAY ==
--- OUTSIDE RECORDS SUMMARY | 2023-11-17 10:17 | XMS_ITS | CCD ---
Author Name Unknown Address [address] [place] [address] Organization [facility] Care Team Providers Care Fourdrinier Operator Name Role Phone UNKNOWN, PROVIDER Admitting Unavailable UNKNOWN, PROVIDER Attending Unavailable VENUS MENDEZ Referring Unavailable VENUS MENDEZ Primary Care Unavailable [place] Procedure Practitioner Unavailab le UNKNOWN, PROVIDER Surgeon Unavailable [place] Procedure Practitioner Unavailab le SANDRA BILL Surgeon Unavailable UNKNOWN, PROVIDER Admitting Unavailable UNKNOWN, PROVIDER Attending Unavailable VENUS MENDEZ Referring Unavailable VENUS MENDEZ Primary Care Unavailable [place] Procedure Practitioner Unavailab le UNKNOWN, PROVIDER Surgeon Unavailable Venus Mendez Primary Care Physician [phone] DONOVAN Admitting Unavailable HOY [...] (1 source) Aspartame Drug Allergy 08-17-20 [facility] (1 source) avoid; Translations: [Unknown] Propensity to adverse reactions (disorder) 08-17-20 [facility] (1 source) vitamin B12; Translations: [cyanocobalamin] Drug Allergy Unknown (qualifier value) [facility] (1 source) Acetaminophen / HYDROcodone Drug Allergy [facility] (1 source) Corticosteroids Drug allergy (disorder) [facility] (1 source) fentaNYL Drug Allergy [facility] (1 source) Misc-Food; Translations: [Misc-Food] Food allergy (disorder) [facility] (1 source) Corticosteroids Drug allergy (disorder) 05-14-20 [facility] Repository Medications Current Medications Medication Drug [...] Onset: 3 Chronic Other aftercare (1 source) senior care (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; 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] Onset: 3 Episodic Other aftercare (1 source) Other meterman (current) drug therapy; Translations: [OTH CARE HOME CURRENT DRUG THERAPY] Onset: 3 Episodic Other [...] spine 5V*on 02-12 XR cervical spine 5V* [facility] Main [address] [address] XRay Report Signed Patient: Matty Garces MR#: [id number] 97 : 1970 Acct:[id number] Age/Sex: 52 / M ADM Date: 03/11/23 Loc: ICXD Room: Type: [facility] Attending Dr: Rubén Geiger MD Copies to: [...] Crow Contreras M.D.03/11/2023 3:48 PM Dictation Location: [place] [address] Transcribed By: [facility] 03/11/23 1548 Dictated By: Crow Contreras DO 03/11/23 1544 Signed By: 03/11/23 1548 [facility] CT CSPINE WO CONon CT CSPINE WO [...] ANGEL SAID Date: 2022-12-06 06:37 Normal [facility] CT FACIAL BONES WO CONon CT FACIAL [...] ANGEL SAID Date: 2022-12-06 06:41 Normal [facility] CT HEAD WO CONon 12-06-2022 CT HEAD [...] ANGEL SAID Date: 2022-12-06 06:39 Normal [facility] XR ELBOW RT MIN 3 VIEWSon XR ELBOW RT MIN 3 VIEWS Exam: Radiographs: XR ELBOW RT MIN 3 VIEWS Reason for exam: Elbow pain Comparison: None IMPRESSION: Right elbow degenerative changes. Olecranon spur. Remainder of the right elbow is unremarkable. Electronically authenticated by: MICHAEL CASANOVA Date: 2022-12-06 07:22 Normal [facility] XR FOREARM RT 2Von 03-26-202 3 XR FOREARM RT 2V Exam: Radiographs: XR FOREARM RT 2V Reason for exam: Forearm pain Comparison: None IMPRESSION: Mild degenerative changes in the right elbow and wrist. Right forearm is otherwise unremarkable. Electronically authenticated by: MICHAEL CASANOVA Date: 2022-12-06 08:07 Normal [facility] PSA, FREE AND TOTAL RATIOon 12-03-2022 % Free PSA 9.0 % Normal [facility] Comment on above: Result Comment: The [...] men. Performed By: #### P SAFREE #### [facility] [address] [place] [address] Dr. Shabnam Rae Prostate specific Ag [Mass/Vol] 5.9 ng/mL Critically high 0.0-4.0 [facility] Comment on above: Result Comment: Roch lucy ECLIA methodology. . According to the [place] [employer], Serum PSA should decrease and [...] disease. Performed By: #### P SAFREE #### [facility] [address] [place] [address] Dr. Shabnam Rae PSA, Free 0.53 ng/mL Normal N/A [facility] Comment on above: Result Comment: Roch e ECLIA methodology. Performed By: #### P SAFREE #### [facility] [address] [place] [address] Dr. Shabnam Rae INSULINon 12-02-2022 Insulin 20.2 uIU/mL Normal 2.6-24.9 [facility] Comment on above: Performed By: #### P SASC #### [facility] [address] [place] [address] [address] Shabnam Rae TESTOSTERONE, TOTALon 2022 Testosterone [Mass/Vol] 256 ng/dL Critically low 264-916 [facility] Comment on above: Result Comment: Adul t male reference interval is based on a population of healthy nonobese males (BMI <30) between 19 and 39 years old. adia Ch.al. JCEM 2017,102;4696-6692. PMID: 19260403. Performed By: #### P SASC #### [facility] [address] [place] [address] Dr. Shabnam Rae CBC AUTO DIFFon 12-01-2022 BASO # 0.1 103/ul Normal 0.0-0.1 [facility] Comment on above: Performed By: #### P SASC #### [facility] [address] [place] [address] Dr. Shabnam Rae Basophils/100 WBC (Bld) 1.0 % Normal 0.2-2.0 [facility] Comment on above: Performed By: #### P SASC #### [facility] [address] [place] [address] [address] Shabnam Rae EO # 0.1 103/ul Normal 0.0-0.7 [facility] Comment on above: Performed By: #### P SASC #### [facility] [address] [place] [address] Dr. Shabnam Rae Eosinophils/100 WBC (Bld) 1.8 % Normal 0.9-7.0 [facility] Comment on above: Performed By: #### P SASC #### [facility] [address] [place] [address] Dr. Shabnam Rae Erythrocyte distribution width (RBC) [Ratio] 14.8 % Normal 11.0-15.0 [facility] Comment on above: Performed By: #### P SASC #### [facility] [address] [place] [address] [address] Shabnam Rae Hematocrit (Bld) [Volume fraction] 49.9 % Normal 42.0-54.0 [facility] Comment on above: Performed By: #### P SASC #### [facility] [address] [place] [address] [address] Shabnam Rae Hemoglobin (Bld) [Mass/Vol] 16.0 g/dL Normal 14.0-18.0 [facility] Comment on above: Performed By: #### P SASC #### [facility] [address] [place] [address] [address] Shabnam Rae IG # 0.04 10e3/ul Critically high 0.00-0.03 [facility] Comment on above: Performed By: #### P SASC #### [facility] [address] [place] [address] Dr. Shabnam Rae IG % 0.6 % Critically high 0.0-0.5 [facility] Comment on above: Performed By: #### P SASC #### [facility] [address] [place] [address] [address] Shabnam Rae LYMPH # 1.0 103/ul Critically low 1.2-3.8 [facility] Comment on above: Performed By: #### P SASC #### [facility] [address] [place] [address] [address] Shabnam Rae Lymphocytes/100 WBC (Bld) 16.2 % Critically low 20.5-60.0 [facility] Comment on above: Performed By: #### P SASC #### [facility] [address] [place] [address] [address] Shabnam Rae MANUAL DIFF REQ NO Normal [facility] Comment on above: Performed By: #### P SASC #### [facility] [address] [place] [address] [address] Shabnam Rae MCH (RBC) [Entitic mass] 27.7 pg Normal 25.9-34.0 [facility] Comment on above: Performed By: #### P SASC #### [facility] [address] [place] [address] [address] Shabnam Rae MCHC (RBC) [Mass/Vol] 32.1 g/dL Normal 29.9-35.2 [facility] Comment on above: Performed By: #### P SASC #### [facility] [address] [place] [address] [address] Shabnam Rae MCV (RBC) [Entitic vol] 86.3 fL Normal 80.0-94.0 [facility] Comment on above: Performed By: #### P SASC #### [facility] [address] [place] [address] [address] Shabnam Rae MONO # 0.5 103/ul Normal 0.3-0.8 [facility] Comment on above: Performed By: #### P SASC #### [facility] [address] [place] [address] [address] Shabnam Rae Monocytes/100 WBC (Bld) 7.6 % Normal 1.7-12.0 [facility] Comment on above: Performed By: #### P SASC #### [facility] [address] [place] [address] [address] Shabnam Rae NEUT # 4.6 103/ul Normal 1.4-6.5 [facility] Comment on above: Performed By: #### P SASC #### [facility] [address] [place] [address] [address] Shabnam Rae Neutrophils/100 WBC (Bld) 72.8 % Normal 43.0-75.0 [facility] Comment on above: Performed By: #### P SASC #### [facility] [address] [place] [address] [address] Shabnam Rae Platelet mean volume (Bld) [Entitic vol] 9.8 fL Normal 9.5-13.5 [facility] Comment on above: Performed By: #### P SASC #### [facility] [address] [place] [address] [address] Shabnam Rae PLT 203 103/ul Normal 150-450 [facility] Comment on above: Performed By: #### P SASC #### [facility] [address] [place] [address] [address] Shabnam Rae RBC 5.78 106/ul Normal 4.70-6.10 [facility] Comment on above: Performed By: #### P SASC #### [facility] [address] [place] [address] Dr. Shabnam Rae WBC 6.3 103/ul Normal 4.0-11.0 [facility] Comment on above: Performed By: #### P SASC #### [facility] [address] [place] [address] Dr. Shabnam Rae FREE THYROXINE INDEX T7on FTI 2.05 Normal 1.30-4.50 [facility] Comment on above: Performed By: #### T SH, CMP, LIPID, T7, URIC #### [facility] [address] [place] [address] Dr. Shabnam Rae T3U 33.0 % Normal 33.0-40.0 [facility] Comment on above: Performed By: #### T SH, CMP, LIPID, T7, URIC #### [facility] [address] [place] [address] Dr. Shabnam Rae T4 [Mass/Vol] 6.20 ug/dL Normal 4.50-12.10 [facility] Comment on above: Performed By: #### T SH, CMP, LIPID, T7, URIC #### [facility] [address] [place] [address] Dr. Shabnam Rae GLYCOHEMOGLOBIN A1Con 2022 ADA RECOMMENDATION SEE BELOW Normal [facility] Comment on above: Result Comment: ADA RECOMMENDED LIMIT 4.0 - 6.0 ADA THERAPEUTIC TARGET < 7.0 ACTION SUGGESTED > 7.0 Performed By: #### P SASC #### [facility] [address] [place] [address] Dr. Shabnam Rae Glucose [Mass/Vol] 114 mg/dL Normal [facility] Comment on above: Performed By: #### P SASC #### [facility] [address] [place] [address] Dr. Shabnam Rae HbA1c (Bld) [Mass fraction] 5.6 % Normal 4.5-6.2 [facility] Comment on above: Performed By: #### P SASC #### [facility] [address] [place] [address] Dr. Shabnam Rae LIPID PROFILEon 12-01-2022 CHOL-HDL RATIO NORM SEE BELOW Normal [facility] Comment on above: Result Comment: 3.3 - 4.4 LOW RISK 4.4 - 7.1 AVERAGE RISK 7.1 - 11.0 MODERATE RISK >11.0 HIGH RISK Performed By: #### T SH, CMP, LIPID, T7, URIC #### [facility] [address] [place] [address] Dr. Shabnam Rae Cholesterol [Mass/Vol] 176 mg/dL Normal <=200 [facility] Comment on above: Performed By: #### T SH, CMP, LIPID, T7, URIC #### [facility] [address] [place] [address] Dr. Shabnam Rae Cholesterol in HDL [Mass/Vol] 48 mg/dL Normal 40-60 [facility] Comment on above: Performed By: #### T SH, CMP, LIPID, T7, URIC #### [facility] [address] [place] [address] Dr. Shabnam Rae Cholesterol in LDL [Mass/Vol] 108.2 mg/dL Normal [facility] Comment on above: Performed By: #### T SH, CMP, LIPID, T7, URIC #### [facility] [address] [place] [address] Dr. Shabnam Rae Cholesterol.total/Ch olesterol in HDL [Mass ratio] 3.7 {ratio} Normal [facility] Comment on above: Performed By: #### T SH, CMP, LIPID, T7, URIC #### [facility] [address] [place] [address] Dr. Shabnam Rae HDL NORMAL > or = 60 mg/dl - LOW CARDIOVASCULAR RISK <40 mg/dl - HIGH CARDIOVASCULAR RISK Normal [facility] Comment on above: Performed By: #### T SH, CMP, LIPID, T7, URIC #### [facility] [address] [place] [address] Dr. Shabnam Rae LDL CALC NORMAL SEE BELOW Normal [facility] Comment on above: Result Comment: <100 mg/dl OPTIMAL 100 - 129 mg/dl NEAR OR ABOVE OPTIMAL 130 - 159 mg/dl BORDERLINE HIGH 160 - 189 mg/dl HIGH >190 mg/dl VERY HIGH Performed By: #### T SH, CMP, LIPID, T7, URIC #### [facility] [address] [place] [address] [address] Shabnam Rae Triglyceride [Mass/Vol] 99 mg/dL Normal <=150 [facility] Comment on above: Performed By: #### T SH, CMP, LIPID, T7, URIC #### [facility] [address] [place] [address] [address] Shabnam Rae VLDL CALC 19.8 mg/dL Normal [facility] Comment on above: Performed By: #### T SH, CMP, LIPID, T7, URIC #### [facility] [address] [place] [address] [address] Shabnam Rae PROF 14(COMP METB)on 023 Albumin [Mass/Vol] 4.1 g/dL Normal 3.4-5.0 [facility] Comment on above: Performed By: #### T SH, CMP, LIPID, T7, URIC #### [facility] [address] [place] [address] [address] Shabnam Rae Albumin/Globulin [Mass ratio] 1.1 {ratio} Normal [facility] Comment on above: Performed By: #### T SH, CMP, LIPID, T7, URIC #### [facility] [address] [place] [address] [address] Shabnam Rae ALP [Catalytic activity/Vol] 101 U/L Normal 46-116 [facility] Comment on above: Performed By: #### T SH, CMP, LIPID, T7, URIC #### [facility] [address] [place] [address] [address] Shabnam Rae ALT [Catalytic activity/Vol] 26 U/L Normal 16-63 [facility] Comment on above: Performed By: #### T SH, CMP, LIPID, T7, URIC #### [facility] [address] [place] [address] [address] Shabnam Rae Anion gap [Moles/Vol] 10.1 mmol/L Normal [facility] Comment on above: Performed By: #### T SH, CMP, LIPID, T7, URIC #### [facility] [address] [place] [address] Dr. Shabnam Rae AST [Catalytic activity/Vol] 19 U/L Normal 15-37 [facility] Comment on above: Performed By: #### T SH, CMP, LIPID, T7, URIC #### [facility] [address] [place] [address] [address] Shabnam Rae Bilirubin [Mass/Vol] 0.8 mg/dL Normal 0.2-1.0 [facility] Comment on above: Performed By: #### T SH, CMP, LIPID, T7, URIC #### [facility] [address] [place] [address] Dr. Shabnam Rae Calcium [Mass/Vol] 9.5 mg/dL Normal 8.5-10.1 [facility] Comment on above: Performed By: #### T SH, CMP, LIPID, T7, URIC #### [facility] [address] [place] [address] [address] Shabnam Rae Chloride [Moles/Vol] 102 mmol/L Normal 98-107 [facility] Comment on above: Performed By: #### T SH, CMP, LIPID, T7, URIC #### [facility] [address] [place] [address] [address] Shabnam Rae CO2 [Moles/Vol] 32.4 mmol/L Critically high 21.0-32.0 [facility] Comment on above: Performed By: #### T SH, CMP, LIPID, T7, URIC #### [facility] [address] [place] [address] Dr. Shabnam Rae Creatinine [Mass/Vol] 1.00 mg/dL Normal 0.70-1.30 [facility] Comment on above: Performed By: #### T SH, CMP, LIPID, T7, URIC #### [facility] [address] [place] [address] Dr. Shabnam Rae EGFR-AF SAMOAN >60 Normal >=60 [facility] Comment on above: Performed By: #### T SH, CMP, LIPID, T7, URIC #### [facility] [address] [place] [address] [address] Shabnam Rae EGFR-NON AF SAMOAN >60 Normal >=60 [facility] Comment on above: Performed By: #### T SH, CMP, LIPID, T7, URIC #### [facility] [address] [place] [address] [address] Shabnam Rae Globulin (S) [Mass/Vol] 3.8 g/dL Normal [facility] Comment on above: Performed By: #### T SH, CMP, LIPID, T7, URIC #### [facility] [address] [place] [address] Dr. Shabnam Rae Glucose [Mass/Vol] 94 mg/dL Normal 74-106 [facility] Comment on above: Performed By: #### T SH, CMP, LIPID, T7, URIC #### [facility] [address] [place] [address] Dr. Shabnam Rae Potassium [Moles/Vol] 3.5 mmol/L Normal 3.5-5.1 [facility] Comment on above: Performed By: #### T SH, CMP, LIPID, T7, URIC #### [facility] [address] [place] [address] Dr. Shabnam Rae Protein [Mass/Vol] 7.9 g/dL Normal 6.4-8.2 [facility] Comment on above: Performed By: #### T SH, CMP, LIPID, T7, URIC #### [facility] [address] [place] [address] [address] Shabnam Rae Sodium [Moles/Vol] 141 mmol/L Normal 136-145 [facility] Comment on above: Performed By: #### T SH, CMP, LIPID, T7, URIC #### [facility] [address] [place] [address] Dr. Shabnam Rae Urea nitrogen [Mass/Vol] 15.0 mg/dL Normal 7.0-18.0 [facility] Comment on above: Performed By: #### T SH, CMP, LIPID, T7, URIC #### [facility] [id number] Shabnam Rae Urea nitrogen/Creatinine [Mass ratio] 15.0 mg/mg Normal [facility] Comment on above: Performed By: #### T SH, CMP, LIPID, T7, URIC #### [facility] [id number] Shabnam Rae TSHon 12-01-2022 TSH 1.504 uIU/mL Normal 0.358-3.740 [facility] Comment on above: Performed By: #### T SH, CMP, LIPID, T7, URIC #### [facility] [id number] Shabnam Rae URIC ACID SERUMon 12-01-2022 Urate [Mass/Vol] 6.9 mg/dL Normal 3.5-7.2 [facility] Comment on above: Performed By: #### T SH, CMP, LIPID, T7, URIC #### [facility] [address] [place] [address] [address] Shabnam Rae TESTOSTERONE, TOTALon 2021 Testosterone [Mass/Vol] 244 ng/dL Critically low 264-916 [facility] Comment on above: Result Comment: Adul t male reference interval is based on a population of healthy nonobese males (BMI <30) between 19 and 39 years old. Dima, et.al. JCEM 2017,102;2558-5887. PMID: 73804410. Performed By: #### P SAFREE #### [facility] [address] [place] [address] Dr. Shabnam Rae TESTOSTERONE, FREE,DIRECT, T OTALon 03-16-2022 Free Testosterone(Direct) 2.1 pg/mL Critically low 7.2-24.0 [facility] Comment on above: Result Comment: Perf ormed at: BN Performed By: #### C VDTBH #### [facility] [id number] Shabnam Rae Testosterone [Mass/Vol] 252 ng/dL Critically low 264-916 [facility] Comment on above: Result Comment: Adul t male reference interval is based on a population of healthy nonobese males (BMI <30) between 19 and 39 years old. Dima et.al. JCEM 2017,102;0065-3749. PMID: 60271821. Performed at: CB Performed By: #### [facility] #### [facility] [address] [place] [address] [address] Shabnam Rae Formson 02-26-2022 Forms [id number] 7#1.00CD:127 Normal [facility] Screenson 02-26-2022 Screens [id number] 7#1.00CD:127 Normal [facility] Screens [id number] #1.00CD:127 Normal [facility] Urology Office/Clinic Noteon 02-26-2022 Urology Office/Clinic [...] qualifying data (more content not included)... Normal [facility] Comment on above: Result Comment: Elec tronically Signed By: Viola Grullon MD\.br\Date and Time Signed: 02/26/22 00:20 EDT\.br\Electronically Co-Signed By: Helen Leung\.br\Date and Time Co-Signed: 02/25/22 11:16 EDT Ambulatory Visit Summaryon 0 02-25-2022 Ambulatory Visit Summary MATTY GARCES :1970 Visit Date:02/25/2022 Ambulatory Visit Instructions Your Diagnosis Hydrocele Varicocele BPH without urinary obstruction Tests Performed Urnls Dip Stick Auto w/o Microscopy POC 43654 Your Care Team Attending Physician - Viola [...] Urnls Dip Stick Auto w/o Microscopy POC 62905 (02/25/2022) Bilirubin Urine Dipstick - Negative Blood Urine Dipstick - Negative Glucose Urine Dipstick - Negative Ketones Urine Dipstick - Negative Leukocytes Urine Dipstick - Negative Nitrite Urine Dipstick - Negative Protein Urine Dipstick - Negative Specific [place] Urine Dipstick - >=1.030 Urine Appearance Urine [...] the hydrocele for any changes. ? Take xtfj-rth-kbjdbrh and prescription medicines only as told by [...] intended t (more content not included)... Normal [facility] Patient Educationon 02-26-20 Patient Education Urology [...] the hydrocele for any changes. ? Take jcoa-hua-mlwqdvs and prescription medicines only as told by [...] Reviewed: 09/10/2018 Elsevier Patient Education ? 2019 [employer]. [facility] ED Note-Physicianon 05-24-20 22 ED Note-Physician [id number]#1.00CD:127 Normal [facility] RAD - Ultrasound Reporton RAD - Ultrasound Report [id number] #1.00CD:127 Normal [facility] RAD - CT Reporton 02-02-2022 RAD - CT Report [id number]#1.00CD:127 Normal [facility] RAD - CT Report [id number]#1.00CD:127 Normal [facility] CBC AUTO DIFFon 01-05-2022 BASO # 0.0 103/ul Normal 0.0-0.1 [facility] Comment on above: Performed By: #### P SAFREE #### [facility] [address] [place] [address] Dr. Shabnam Rae Basophils/100 WBC (Bld) 0.6 % Normal 0.2-2.0 [facility] Comment on above: Performed By: #### P SAFREE #### [facility] [address] [address] [address] Shabnam Rae EO # 0.1 103/ul Normal 0.0-0.7 [facility] Comment on above: Performed By: #### P SAFREE #### [facility] [address] [address] [address] Shabnam Rae Eosinophils/100 WBC (Bld) 2.1 % Normal 0.9-7.0 [facility] Comment on above: Performed By: #### P SAFREE #### [facility] [address] [address] [address] Shabnam Rae Erythrocyte distribution width (RBC) [Ratio] 13.1 % Normal 11.0-15.0 [facility] Comment on above: Performed By: #### P SAFREE #### [facility] [address] [place] [address] Dr. Shabnam Rae Hematocrit (Bld) [Volume fraction] 43.1 % Normal 42.0-54.0 [facility] Comment on above: Performed By: #### P SAFREE #### [facility] [address] [address] [address] Shabnam Rae Hemoglobin (Bld) [Mass/Vol] 13.7 g/dL Critically low 14.0-18.0 [facility] Comment on above: Performed By: #### P SAFREE #### [facility] [address] [address] [address] Shabnam Rae IG # 0.04 10e3/ul Critically high 0.00-0.03 [facility] Comment on above: Performed By: #### P SAFREE #### [facility] [address] [address] [address] Shabnam Rae IG % 0.6 % Critically high 0.0-0.5 [facility] Comment on above: Performed By: #### P SAFREE #### [facility] [address] [address] [address] Shabnam Rae LYMPH # 0.9 103/ul Critically low 1.2-3.8 [facility] Comment on above: Performed By: #### P SAFREE #### [facility] [address] [address] [address] Shabnam Rae Lymphocytes/100 WBC (Bld) 13.1 % Critically low 20.5-60.0 [facility] Comment on above: Performed By: #### P SAFREE #### [facility] [address] [address] [address] Shabnam Rae MANUAL DIFF REQ NO Normal [facility] Comment on above: Performed By: #### P SAFREE #### [facility] [address] [address] [address] Shabnam Rae MCH (RBC) [Entitic mass] 29.5 pg Normal 25.9-34.0 [facility] Comment on above: Performed By: #### P SAFREE #### [facility] [address] [address] [address] Shabnam Rae MCHC (RBC) [Mass/Vol] 31.8 g/dL Normal 29.9-35.2 [facility] Comment on above: Performed By: #### P SAFREE #### [facility] [address] [address] [address] Shabnam Rae MCV (RBC) [Entitic vol] 92.9 fL Normal 80.0-94.0 [facility] Comment on above: Performed By: #### P SAFREE #### [facility] [address] [address] [address] Shabnam Rae MONO # 0.4 103/ul Normal 0.3-0.8 [facility] Comment on above: Performed By: #### P SAFREE #### [facility] [address] [address] [address] Shabnam Rae Monocytes/100 WBC (Bld) 5.4 % Normal 1.7-12.0 [facility] Comment on above: Performed By: #### P SAFREE #### [facility] [address] [address] [address] Shabnam Rae NEUT # 5.2 103/ul Normal 1.4-6.5 [facility] Comment on above: Performed By: #### P SAFREE #### [facility] [address] [address] [address] Shabnam Rae Neutrophils/100 WBC (Bld) 78.2 % Critically high 43.0-75.0 [facility] Comment on above: Performed By: #### P SAFREE #### [facility] [address] [address] [address] Shabnam Rae Platelet mean volume (Bld) [Entitic vol] 10.9 fL Normal 9.5-13.5 [facility] Comment on above: Performed By: #### P SAFREE #### [facility] [address] [address] [address] Shabnam Rae PLT 153 103/ul Normal 150-450 [facility] Comment on above: Performed By: #### P SAFREE #### [facility] [address] [address] [address] Shabnam Rae RBC 4.64 106/ul Critically low 4.70-6.10 [facility] Comment on above: Performed By: #### P SAFREE #### [facility] [address] [place] [address] Dr. Shabnam Rae WBC 6.6 103/ul Normal 4.0-11.0 [facility] Comment on above: Performed By: #### P SAFREE #### [facility] [address] [place] [address] Dr. Shabnam Rae CRPon 01-05-2022 CRP 0.9 mg/dL Normal <=1.0 [facility] Comment on above: Performed By: #### P SAFREE #### [facility] [address] [place] [address] Dr. Shabnam Rae PROF 14(COMP METB)on 022 Albumin [Mass/Vol] 3.6 g/dL Normal 3.4-5.0 [facility] Comment on above: Performed By: #### P SAFREE #### [facility] [address] [place] [address] Dr. Shabnam Rae Albumin/Globulin [Mass ratio] 1.0 {ratio} Normal [facility] Comment on above: Performed By: #### P SAFREE #### [facility] [address] [place] [address] Dr. Shabnam Rae ALP [Catalytic activity/Vol] 114 U/L Normal 46-116 [facility] Comment on above: Performed By: #### P SAFREE #### [facility] [address] [place] [address] Dr. Shabnam Rae ALT [Catalytic activity/Vol] 26 U/L Normal 16-63 [facility] Comment on above: Performed By: #### P SAFREE #### [facility] [address] [place] [address] Dr. Shabnam Rae Anion gap [Moles/Vol] 9.3 mmol/L Normal [facility] Comment on above: Performed By: #### P SAFREE #### [facility] [address] [place] [address] Dr. Shabnam Rae AST [Catalytic activity/Vol] 19 U/L Normal 15-37 [facility] Comment on above: Performed By: #### P SAFREE #### [facility] [address] [address] [address] Shabnam Rae Bilirubin [Mass/Vol] 0.5 mg/dL Normal 0.2-1.0 [facility] Comment on above: Performed By: #### P SAFREE #### [facility] [address] [address] [address] Shabnam Rae Calcium [Mass/Vol] 8.9 mg/dL Normal 8.5-10.1 [facility] Comment on above: Performed By: #### P SAFREE #### [facility] [address] [address] [address] Shabnam Rae Chloride [Moles/Vol] 106 mmol/L Normal 98-107 [facility] Comment on above: Performed By: #### P SAFREE #### [facility] [address] [address] [address] Shabnam Rae CO2 [Moles/Vol] 30.7 mmol/L Normal 21.0-32.0 [facility] Comment on above: Performed By: #### P SAFREE #### [facility] [address] [address] [address] Shabnam Rae Creatinine [Mass/Vol] 1.15 mg/dL Normal 0.70-1.30 [facility] Comment on above: Performed By: #### P SAFREE #### [facility] [address] [address] [address] Shabnam Rae EGFR-AF SAMOAN >60 Normal >=60 [facility] Comment on above: Performed By: #### P SAFREE #### [facility] [address] [address] [address] Shabnam Rae EGFR-NON AF SAMOAN >60 Normal >=60 [facility] Comment on above: Performed By: #### P SAFREE #### [facility] [address] [address] [address] Shabnam Rae Globulin (S) [Mass/Vol] 3.6 g/dL Normal [facility] Comment on above: Performed By: #### P SAFREE #### [facility] [address] [address] [address] Shabnam Rae Glucose [Mass/Vol] 117 mg/dL Critically high 74-106 [facility] Comment on above: Performed By: #### P SAFREE #### [facility] [address] [address] [address] Shabnam Rae Potassium [Moles/Vol] 4.0 mmol/L Normal 3.5-5.1 [facility] Comment on above: Performed By: #### P SAFREE #### [facility] [address] [address] [address] Shabnam Rae Protein [Mass/Vol] 7.2 g/dL Normal 6.1-8.2 [facility] Comment on above: Performed By: #### P SAFREE #### [facility] [address] [address] [address] Shabnam Rae Sodium [Moles/Vol] 142 mmol/L Normal 136-145 [facility] Comment on above: Performed By: #### P SAFREE #### [facility] [address] [address] [address] Shabnam Rae Urea nitrogen [Mass/Vol] 15.0 mg/dL Normal 7.0-18.0 [facility] Comment on above: Performed By: #### P SAFREE #### [facility] [address] [address] [address] Shabnam Rae Urea nitrogen/Creatinine [Mass ratio] 13.0 mg/mg Normal [facility] Comment on above: Performed By: #### P SAFREE #### [facility] [address] [place] [address] Dr. Shabnam Rae US SCROTUMon 01-05-2022 US [...] ALVINA CAICEDO Date: 2022-01-05 08:48 Normal [facility] CBC AUTO DIFFon 01-04-2022 BASO # 0.1 103/ul Normal 0.0-0.1 [facility] Comment on above: Performed By: #### C BC #### [facility] [address] [place] [address] Dr. Shabnam Rae Basophils/100 WBC (Bld) 0.8 % Normal 0.2-2.0 [facility] Comment on above: Performed By: #### C BC #### [facility] [address] [place] [address] Dr. Shabnam Rae EO # 0.1 103/ul Normal 0.0-0.7 [facility] Comment on above: Performed By: #### C BC #### [facility] [address] [place] [address] Dr. Shabnam Rae Eosinophils/100 WBC (Bld) 1.5 % Normal 0.9-7.0 [facility] Comment on above: Performed By: #### C BC #### [facility] [address] [place] [address] Dr. Shabnam Rae Erythrocyte distribution width (RBC) [Ratio] 12.8 % Normal 11.0-15.0 [facility] Comment on above: Performed By: #### C BC #### [facility] [address] [place] [address] Dr. Shabnam Rae Hematocrit (Bld) [Volume fraction] 40.3 % Critically low 42.0-54.0 [facility] Comment on above: Performed By: #### C BC #### [facility] [address] [place] [address] Dr. Shabnam Rae Hemoglobin (Bld) [Mass/Vol] 13.4 g/dL Critically low 14.0-18.0 [facility] Comment on above: Performed By: #### C BC #### [facility] [address] [place] [address] Dr. Shabnam Rae IG # 0.03 10e3/ul Normal 0.00-0.03 [facility] Comment on above: Performed By: #### C BC #### [facility] [address] [place] [address] Dr. Shabnam Rae IG % 0.5 % Normal 0.0-0.5 [facility] Comment on above: Performed By: #### C BC #### [facility] [address] [place] [address] Dr. Shabnam Rae LYMPH # 1.0 103/ul Critically low 1.2-3.8 [facility] Comment on above: Performed By: #### C BC #### [facility] [address] [place] [address] Dr. Shabnam Rae Lymphocytes/100 WBC (Bld) 16.4 % Critically low 20.5-60.0 [facility] Comment on above: Performed By: #### C BC #### [facility] [address] [place] [address] Dr. Shabnam Rae MANUAL DIFF REQ NO Normal [facility] Comment on above: Performed By: #### C BC #### [facility] [address] [place] [address] Dr. Shabnam Rae MCH (RBC) [Entitic mass] 29.5 pg Normal 25.9-34.0 [facility] Comment on above: Performed By: #### C BC #### [facility] [id number] Shabnam Rae MCHC (RBC) [Mass/Vol] 33.3 g/dL Normal 29.9-35.2 [facility] Comment on above: Performed By: #### C BC #### [facility] [id number] Shabnam Rae MCV (RBC) [Entitic vol] 88.8 fL Normal 80.0-94.0 [facility] Comment on above: Performed By: #### C BC #### [facility] [address] [address] [address] Shabnam Rae MONO # 0.6 103/ul Normal 0.3-0.8 [facility] Comment on above: Performed By: #### C BC #### [facility] [address] [place] [address] Dr. Shabnam Rae Monocytes/100 WBC (Bld) 9.6 % Normal 1.7-12.0 [facility] Comment on above: Performed By: #### C BC #### [facility] [address] [place] [address] Dr. Shabnam Rae NEUT # 4.4 103/ul Normal 1.4-6.5 [facility] Comment on above: Performed By: #### C BC #### [facility] [address] [place] [address] Dr. Shabnam Rae Neutrophils/100 WBC (Bld) 71.2 % Normal 43.0-75.0 [facility] Comment on above: Performed By: #### C BC #### [facility] [address] [place], [place] [id number] Dr. Shabnam Rae Platelet mean volume (Bld) [Entitic vol] 10.8 fL Normal 9.5-13.5 [facility] Comment on above: Performed By: #### C BC #### [facility] [address] [place], [place] [id number] Dr. Shabnam Rae PLT 158 103/ul Normal 150-450 [facility] Comment on above: Performed By: #### C BC #### [facility] [address] [place] [address] [address] [address] Shabnam Rae RBC 4.54 106/ul Critically low 4.70-6.10 [facility] Comment on above: Performed By: #### C BC #### [facility] [address] [place], [place] [address] Dr. Shabnam Rae WBC 6.2 103/ul Normal 4.0-11.0 [facility] Comment on above: Performed By: #### C BC #### [facility] [address] [place], [place] [address] ABD/PELV W CONon [...] MAYRA BERNAL Date: 2022-01-04 05:19 Normal [facility] CT PELVIS WO CONon CT PELVIS WO [...] MANUEL HOUGH Date: 2022-01-04 08:54 Normal [facility] CULTURE URINEon 01-04-2022 CULTURE URINE Culture Observations: No growth Normal [facility] Comment on above: Performed By: #### P [facility] #### [facility] [address] [place] [address] Dr. Shabnam Rae Covid-19 PCR (CVDTB)on 12-13 SARS-CoV-2 (COVID-19) RNA ELIJAH+probe Ql (Unsp spec) Not detected Normal NOT DETECTED [facility] Comment on above: Result Comment: When diagnostic testing is negative, the possibility of a false negative should be considered in the context of a patient's recent exposures and the presence of clinical signs and symptoms consistent with SARS-CoV-2. This test is not yet approved or cleared by the [place] Food and Drug Administration (FDA). This test was developed by [employer], [place], [place]. The performance characteristics of this test were validated by [facility]. The results are not intended to be used as the sole means for clinical diagnosis or patient management decisions. [facility] is authorized under Clinical Laboratory Improvement Amendments [...] for this test is supported by the [employer] of [employer] and Human Service's declaration that [...] used). Performed By: #### C VDTBH #### [facility] [address] [place] [address] Dr. Shabnam Rae ER URINE PROFILEon 2 Bilirubin Ql (U) Negative Normal NEGATIVE [facility] Comment on above: Performed By: #### P SASC #### [facility] [address] [place] [address] Dr. Shabnam Rae Clarity (U) CLEAR Normal CLEAR [facility] Comment on above: Performed By: #### P SASC #### [facility] [address] [place] [address] Dr. Shabnam Rae Color (U) YELLOW Normal YELLOW [facility] Comment on above: Performed By: #### P SASC #### [facility] [address] [address] [address] Shabnam HERNANDEZ A micrscopic examination will be performed if indicated. Normal [facility] Comment on above: Performed By: #### P SASC #### [facility] [address] [address] [address] Shabnam Rae Glucose Ql (U) Negative Normal NEGATIVE [facility] Comment on above: Performed By: #### P SASC #### [facility] [address] [address] [address] Shabnam Rae Hemoglobin Ql (U) Negative Normal NEGATIVE [facility] Comment on above: Performed By: #### P SASC #### [facility] [address] [place] [address] Dr. Shabnam Rae Ketones Ql (U) Negative Normal NEGATIVE [facility] Comment on above: Performed By: #### P SASC #### [facility] [address] [address] [address] Shabnam Rae LEUKOCYTES Negative Normal NEGATIVE [facility] Comment on above: Performed By: #### P SASC #### [facility] [address] [address] [address] Sahbnam Rae Nitrite Ql (U) Negative Normal NEGATIVE [facility] Comment on above: Performed By: #### P SASC #### [facility] [address] [address] [address] Shabnam Rae pH (U) 6.5 [pH] Normal 5-9 [facility] Comment on above: Performed By: #### P SASC #### [facility] [address] [address] [address] Shabanm Rae SPEC GRAVITY 1.010 Normal 1.005-<=1.025 [facility] Comment on above: Performed By: #### P SASC #### [facility] [address] [address] [address] Shabnam Rae UA PROTEIN Negative Normal NEGATIVE/ TRACE [facility] Comment on above: Performed By: #### P SASC #### [facility] [address] [address] [address] Shabnam Rae UR MICRO IND NOT INDICATED Normal [facility] Comment on above: Performed By: #### P SASC #### [facility] [address] [address] [address] Shabnam Rae Urobilinogen Qn (U) 0.2 {Saria'U}/dL Normal 0.2 - 1. 0 [facility] Comment on above: Performed By: #### P SASC #### [facility] [address] [address] [address] Shabnam Rae LACTATE/LACTIC ACIDon 2021 Lactate [Moles/Vol] 1.0 mmol/L Normal 0.4-2.0 [facility] Comment on above: Performed By: #### P SASC #### [facility] [address] [place] [address] Dr. Shabnam Rae PROF CHEM 8 (BAS METB)on Anion gap [Moles/Vol] 10.0 mmol/L Normal [facility] Comment on above: Performed By: #### B MP #### [facility] [address] [place] [address] Dr. Shabnam Rae Calcium [Mass/Vol] 8.5 mg/dL Normal 8.5-10.1 [facility] Comment on above: Performed By: #### B MP #### [facility] [address] [place] [address] Dr. Shabnam Rae Chloride [Moles/Vol] 103 mmol/L Normal 98-107 [facility] Comment on above: Performed By: #### B MP #### [facility] [address] [place] [address] Dr. Shabnam Rae CO2 [Moles/Vol] 29.2 mmol/L Normal 21.0-32.0 [facility] Comment on above: Performed By: #### B MP #### [facility] [address] [place] [address] Dr. Shabnam Rae Creatinine [Mass/Vol] 1.25 mg/dL Normal 0.70-1.30 [facility] Comment on above: Performed By: #### B MP #### [facility] [address] [address] [address] Shabnam Rae EGFR-AF SAMOAN >60 Normal >=60 [facility] Comment on above: Performed By: #### B MP #### [facility] [id number] Shabnam Rae EGFR-NON AF SAMOAN >60 Normal >=60 [facility] Comment on above: Performed By: #### B MP #### [facility] [address] [address] [address] Shabnam Rae Glucose [Mass/Vol] 132 mg/dL Critically high 74-106 T [facility] Comment on above: Performed By: #### B MP #### [facility] [address] [address] [address] Shabnam Rae Potassium [Moles/Vol] 3.2 mmol/L Critically low 3.5-5.1 [facility] Comment on above: Performed By: #### B MP #### [facility] [address] [address] [address] Shabnam Rae Sodium [Moles/Vol] 139 mmol/L Normal 136-145 [facility] Comment on above: Performed By: #### B MP #### [facility] [address] [address] [address] Shabnam Rae Urea nitrogen [Mass/Vol] 19.0 mg/dL Critically high 7.0-18.0 [facility] Comment on above: Performed By: #### B MP #### [facility] [address] [address] [address] Shabnam Rae Urea nitrogen/Creatinine [Mass ratio] 15.2 mg/mg Normal [facility] Comment on above: Performed By: #### B MP #### [facility] [id number] Shabnam Rae CERVICAL SPINE 2 OR 3 [facility] 07-06-2019 CERVICAL SPINE 2 OR 3 [facility] Department of Radiology [address] [place] [id number] Patient Name: MATTY GARCES : 1970 Sex: M Age: Race: White Pt. Location: Patient Status: O Ordered Date: 07/06/2019 9:10:00 AM Completed Date: 07/06/2019 09:21 AM Requesting Provider: LUCIANO VIEIRA Attending Provider: LUCIANO VIEIRA Report Copy To: VENUS MENDEZ Signs & Symptoms: M48.02 Spinal stenosis, cervical region I10 History: [employer] Comments: , STAT READ , STAT READ [...] findings. Electronically signed by:Bernice Hoyt. Transcribed by: [email or web address], User Resident: RADHA CHIN Electronically Signed by: BERNICE HOYT @ 07/06/2019 08:52 PM I personally read this/these film(s) with this resident Normal [facility] Comment on above: Order Comment: , STA T READ , STAT READ , , , Ordering Provider - LUCIANO VIEIRA MD , CERVICAL SPINE 2 OR 3 [facility] 04-06-2019 CERVICAL SPINE 2 OR 3 [facility] Department of Radiology [address] [place] [id number] Patient Name: MATTY GARCES : 1970 [...] FALLS Exam: CERVICAL SPINE 2 OR 3 [facility] CERVICAL SPINE 2 OR 3 S 04/06/2019 [...] study. Electronically signed by:Bernice Hoyt. Transcribed by: [email or web address], User Resident: Electronically Signed by: BERNICE HOYT @ 04/06/2019 04:40 PM Normal [facility] Comment on above: Order Comment: AP/LA T, ODONTOID PLEASE DO SWIMMER'S VIEW FOLLOW UP HARDWARE AND ALIGNMENT, S/P ACDF, RECENT FALLS CERVICAL SPINE 2 OR 3 [facility] 02-17-2019 CERVICAL SPINE 2 OR 3 [facility] Department of Radiology [address] [place] [phone] Patient Name: MATTY GARCES : 1970 [...] findings. Electronically signed by:Bella King. Transcribed by: [email or web address], User Resident: EMILE TINAJERO Electronically Signed by: BELLA KING @ 02/20/2019 11:53 AM I personally read this/these film(s) with this resident Normal [facility] Comment on above: Order Comment: C-SPI NE 2 OR 3 VIEW POSTOP, EVALUATION HARDWARE AN ALIGNMENT BASIC METABOLIC PANELon 05- Calcium [Mass/Vol] 9.2 mg/dL Normal 8.6-10.3 [facility] Comment on above: Order Comment: No: D o not add to previous draw Performed By: #### 5 0103 #### [facility] [address] [place] [address], [place] Chloride [Moles/Vol] 101 mmol/L Normal 98-107 [facility] Comment on above: Order Comment: No: D o not add to previous draw Performed By: #### 5 0103 #### [facility] [address] [place] [address], [place] CO2 [Moles/Vol] 26 mmol/L Normal 21-[address] [facility] Comment on above: Order Comment: No: D o not add to previous draw Performed By: #### 5 0103 #### [facility] [address] [place] [address], [place] Creatinine [Mass/Vol] 1.02 mg/dL Normal 0.70-1.30 [facility] Comment on above: Order Comment: No: D o not add to previous draw Performed By: #### 5 0103 #### [facility] [address] [place] [address], [place] GFR/1.73 sq M predicted among blacks MDRD (S/P/Bld) [Vol rate/Area] mL/min/{1.73_m2} Normal >60 [facility] Comment on above: Order Comment: No: D o not add to previous draw Performed By: #### 5 0103 #### [facility] [address] [place] [address], [facility] GFR/1.73 sq M predicted among non-blacks MDRD (S/P/Bld) [Vol rate/Area] mL/min/{1.73_m2} Normal >60 [facility] Comment on above: Order Comment: No: D o not add to previous draw Performed By: #### 5 0103 #### [facility] [address] [place] [address], [facility] Glucose [Mass/Vol] 124 mg/dL High 70-100 [facility] Comment on above: Order Comment: No: D o not add to previous draw Performed By: #### 5 0103 #### [facility] [address] [place] [address], [facility] Potassium [Moles/Vol] 3.9 mmol/L Normal 3.5-5.1 [facility] Comment on above: Order Comment: No: D o not add to previous draw Performed By: #### 5 0103 #### [facility] [address] [place] [address], [place] Sodium [Moles/Vol] 137 mmol/L Normal 136-145 [facility] Comment on above: Order Comment: No: D o not add to previous draw Performed By: #### 5 0103 #### [facility] [address] [place] [address], [facility] Urea nitrogen [Mass/Vol] 15 mg/dL Normal 7-25 [facility] Comment on above: Order Comment: No: D o not add to previous draw Performed By: #### 5 0103 #### [facility] [address] [place] [address], [facility] CBC COMPLETE BLOOD COUNTon 0 - Erythrocyte distribution width (RBC) [Ratio] 13.9 % Normal 11.5-15.0 [facility] Comment on above: Order Comment: No: D o not add to previous draw Performed By: #### 5 0103 #### [facility] [address] [place] [address], [facility] Hematocrit (Bld) [Volume fraction] 50.0 % Normal 39.0-50.0 [facility] Comment on above: Order Comment: No: D o not add to previous draw Performed By: #### 5 0103 #### [facility] [address] [place] [address], [facility] Hemoglobin (Bld) [Mass/Vol] 16.0 g/dL Normal 13.0-17.0 [facility] Comment on above: Order Comment: No: D o not add to previous draw Performed By: #### 5 0103 #### [facility] [address] [place] [id number], [facility] MCH (RBC) [Entitic mass] 27.5 pg Normal 27.0-33.0 [facility] Comment on above: Order Comment: No: D o not add to previous draw Performed By: #### 5 0103 #### [facility] [address] [place] [address], [facility] MCHC (RBC) [Mass/Vol] 32.0 g/dL Normal 32.0-35.0 [facility] Comment on above: Order Comment: No: D o not add to previous draw Performed By: #### 5 0103 #### [facility] [address] [place] [id number], [facility] MCV (RBC) [Entitic vol] 85.9 fL Normal 82.0-98.0 [facility] Comment on above: Order Comment: No: D o not add to previous draw Performed By: #### 5 0103 #### [facility] [address] [place] [id number], [facility] Nucleated RBC/100 WBC (Bld) [Ratio] 0 % Normal 0-0 [facility] Comment on above: Order Comment: No: D o not add to previous draw Performed By: #### 5 0103 #### [facility] [address] [place] [address], [facility] PLAT CNT 249 10*3/uL Normal 150-400 [facility] Comment on above: Order Comment: No: D o not add to previous draw Performed By: #### 5 0103 #### [facility] [address] [place] [address], [facility] RBC (Bld) [#/Vol] 5.82 10*6/uL High 4.20-5.70 [facility] Comment on above: Order Comment: No: D o not add to previous draw Performed By: #### 5 0103 #### [facility] [address] [place] [address], [facility] WBC (Bld) [#/Vol] 15.85 10*3/uL High 4.00-10.60 [facility] Comment on above: Order Comment: No: D o not add to previous draw Performed By: #### 5 0103 #### [facility] [address] [facility] [address] Operative Reporton 9 Operative Report MR#: [id number] [facility] Pt. Name: Matty Garces Room #: [id number] Discharge Date: Birthdate: 1970 OPERATIVE REPORT DATE OF SURGERY: 01/30/2019 SURGEON: Luciano Vieira M.D. 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 POSTOPERATIVE DIAGNOSIS: Failed instrumentation at C6-7 on the right. VULCANIZER RUBBER PLATE: ADENIKE Lugo. ANESTHESIA: Endotracheal, Hogan. PROCEDURES: Redo [...] Vieira M.D. Date Trans: 01/31/2019 02:31 Eze/sasha [id number] cc: Venus Mendez M.D. [address] [place] [address] Normal [facility] CERVICAL SPINE 2 OR 3 Son 01-30-2019 CERVICAL SPINE 2 OR 3 S [facility] Department of Radiology [address] [place] [address] Patient Name: MATTY GARCES : 1970 Sex: M Age: Race: White Pt. Location: Patient Status: O Ordered Date: 01/30/2019 7:05:00 AM Completed Date: 01/30/2019 04:12 PM Requesting Provider: LUCIANO VIEIRA Attending Provider: LUCIANO VIEIRA Report Copy To: Signs & Symptoms: C6-7 ACDF History: C6-7 ACDF Comments: C6-7 ACDF Exam: CERVICAL SPINE 2 OR 3 [facility] CERVICAL SPINE 2 OR 3 S 01/30/2019 [...] documentation Electronically signed by:Justus Montano. Transcribed by: [email or web address], User Resident: Electronically Signed by: JUSTUS MONTANO @ 01/30/2019 04:18 PM Normal [facility] Comment on above: Order Comment: C6-7 ACDF POC GLUCOSE LABon 01-30-2019 Glucose [Mass/Vol] 106 mg/dL High 70-100 [facility] Comment on above: Performed By: #### 5 0103 #### [facility] 3000 [facility]. [address] *MRSA/MSSA DNA NASALon 01-23 *MRSA/MSSA DNA NASAL Clinical Report: (D ) Specimen: NASAL SWAB Collected: 01/23/2019 15:02 Status: Final Last Updated: 01/23/2019 20:14 MSSA DNA (Final) Methicillin Susceptible Staphylococcus aureus DNA Detected MRSA DNA (Final) No Methicillin Resistant Staphylococcus aureus DNA Detected Normal [facility] Comment on above: Performed By: #### 5 0103 #### [facility] [address] [facility]. [address] APTTon 01-23-2019 aPTT Coag (Bld) [Time] 35.4 s High 25.0-35.0 [facility] Comment on above: Result Comment: [...] THIS PURPOSE. Performed By: #### 5 7307, 02932 #### [facility] [address] [place] [address], [facility] BASIC METABOLIC PANELon 01-11 Calcium [Mass/Vol] 9.5 mg/dL Normal 8.6-10.3 [facility] Comment on above: Performed By: #### 5 7307, 82883 #### [facility] [address] [place] [address], [facility] Chloride [Moles/Vol] 101 mmol/L Normal 98-107 [facility] Comment on above: Performed By: #### 5 7306, 65397 #### [facility] [address] [place] [address], [place] CO2 [Moles/Vol] 29 mmol/L Normal 21-31 [facility] Comment on above: Performed By: #### 5 7306, 11903 #### [facility] [address] [place] [address], [place] Creatinine [Mass/Vol] 1.08 mg/dL Normal 0.70-1.30 [facility] Comment on above: Performed By: #### 5 7306, 89230 #### [facility] [address] [place] [address], [place] GFR/1.73 sq M predicted among blacks MDRD (S/P/Bld) [Vol rate/Area] mL/min/{1.73_m2} Normal >60 [facility] Comment on above: Performed By: #### 5 7306, 37704 #### [facility] [address] [place] [address], [place] GFR/1.73 sq M predicted among non-blacks MDRD (S/P/Bld) [Vol rate/Area] mL/min/{1.73_m2} Normal >60 [facility] Comment on above: Performed By: #### 5 73, 07803 #### [facility] [address] [place] [address], [place] Glucose [Mass/Vol] 87 mg/dL Normal 70-100 [facility] Comment on above: Performed By: #### 5 7307, 99803 #### [facility] [address] [place] [address], [place] Potassium [Moles/Vol] 4.0 mmol/L Normal 3.5-5.1 [facility] Comment on above: Performed By: #### 5 73, 84513 #### [facility] [address] [place] [address], [facility] Sodium [Moles/Vol] 137 mmol/L Normal 136-145 [facility] Comment on above: Performed By: #### 5 7307, 65466 #### [facility] [address] [place] [address], [facility] Urea nitrogen [Mass/Vol] 12 mg/dL Normal 7-25 [facility] Comment on above: Performed By: #### 5 73, 75933 #### [facility] [address] [place] [address], [facility] CBC W/DIFFon 01-23-2019 ABS BASOPHILS 0.1 10*3/uL Normal 0.0-0.2 [facility] Comment on above: Performed By: #### 5 73Al, 96886 #### [facility] [address] [facility]. [address] ABS IMM GRANS 0.0 10*3/uL Normal 0.0-0.2 [facility] Comment on above: Performed By: #### 5 73, 22335 #### [facility] [address] [place] [address], [facility] ABS NEUTROPHILS 5.3 10*3/uL Normal 1.6-7.[address] [facility] Comment on above: Performed By: #### 5 7307, 80980 #### [facility] [address] [place] [address], [facility] Basophils/100 WBC (Bld) 0.9 % Normal 0.0-1.0 [facility] Comment on above: Performed By: #### 5 7307, 05239 #### [facility] [address] [place] [address], [facility] Eosinophils (Bld) [#/Vol] 0.2 10*3/uL Normal 0.0-0.5 [facility] Comment on above: Performed By: #### 5 7306, 42092 #### [facility] [address] [place] [address], [facility] Eosinophils/100 WBC (Bld) 2.3 % Normal 0.0-6.0 [facility] Comment on above: Performed By: #### 7306, 81111 #### [facility] [address] [place] [id number], [facility] Erythrocyte distribution width (RBC) [Ratio] 13.8 % Normal 11.5-15.0 [facility] Comment on above: Performed By: #### 7306, 52502 #### [facility] [address] [place] [address], [facility] Hematocrit (Bld) [Volume fraction] 49.6 % Normal 39.0-50.0 [facility] Comment on above: Performed By: #### 7306, 86393 #### [facility] [address] [place] [id number], [facility] Hemoglobin (Bld) [Mass/Vol] 16.4 g/dL Normal 13.0-17.0 [facility] Comment on above: Performed By: #### 5 7306, 18059 #### [facility] [address] [place] [address], [facility] IMMATURE GRANS 0.5 % Normal 0.0-1.0 [facility] Comment on above: Performed By: #### 5 7306, 48085 #### [facility] [address] [place] [address], [facility] Lymphocytes (Bld) [#/Vol] 1.2 10*3/uL Normal 1.2-4.0 [facility] Comment on above: Performed By: #### 5 7306, 46385 #### [facility] [address] [place] [address], [place] Lymphocytes/100 WBC (Bld) 16.6 % Low 20.0-45.0 [facility] Comment on above: Performed By: #### 5 7306, 22432 #### [facility] [address] [place] [address], [facility] MCH (RBC) [Entitic mass] 27.8 pg Normal 27.0-33.0 [facility] Comment on above: Performed By: #### 5 7306, 99411 #### [facility] [address] MCHC (RBC) [Mass/Vol] 33.1 g/dL Normal 32.0-35.0 [facility] Comment on above: Performed By: #### 5 7306, 38046 #### [facility] [address] [place] [address], [facility] MCV (RBC) [Entitic vol] 84.2 fL Normal 82.0-98.0 [facility] Comment on above: Performed By: #### 5 7306, 88818 #### [facility] [address] [facility] [place] [address], [facility] Monocytes (Bld) [#/Vol] 0.7 10*3/uL Normal 0.1-1.0 [facility] Comment on above: Performed By: #### 5 7306, 38815 #### [facility] [address] [place] [address], [facility] MONOS 9.4 % Normal 5.0-12.0 [facility] Comment on above: Performed By: #### 5 7306, 45647 #### [facility] [address] [place] [address], [facility] Neutrophils/100 WBC (Bld) 70.3 % Normal 40.0-72.0 [facility] Comment on above: Performed By: #### 5 7306, 84115 #### [facility] [address] [place] [address], [facility] Nucleated RBC/100 WBC (Bld) [Ratio] 0 % Normal 0-0 [facility] Comment on above: Performed By: #### 5 7307, 39206 #### [facility] [address] [place] [address], [facility] PLAT CNT 235 10*3/uL Normal 150-400 [facility] Comment on above: Performed By: #### 5 7307, 48333 #### [facility] [address] RBC (Bld) [#/Vol] 5.89 10*6/uL High 4.20-5.70 The [facility] Comment on above: Performed By: #### 5 7307, 96332 #### [facility] [address] WBC (Bld) [#/Vol] 7.48 10*3/uL Normal 4.00-10.60 [facility] Comment on above: Performed By: #### 5 7307, 16419 #### [facility] [address] PROTHROMBIN TIMEon 9 INR Coag (PPP) [Relative time] 1.12 {INR} Normal 0.91-1.16 [facility] Comment on above: Result Comment: [...] CHEST 1995;108:231S-246S. Performed By: #### 5 7307, 89295 #### [facility] [address] PT Coag (PPP) [Time] 14.4 s Normal 12.3-14.8 [facility] Comment on above: Result Comment: ALL RESULTS MUST BE INTERPRETED WITH RESPECT TO BLOOD DRAWING ARTIFACT OR DILUTION ERROR OF ANTICOAGULANT AT THE TIME OF SAMPLING. Performed By: #### 5 7307, 71466 #### [facility] [address] TYPE AND SCREENon 01-23-2019 ABO INTERPRETATION A Normal [facility] Comment on above: Performed By: #### 5 7307, 07670 #### [facility] [address] [place] [address], [facility] RH INTERPRETATION Positive Normal The [facility] Comment on above: Performed By: #### 5 7307, 23932 #### [facility] 3000 [facility]. [address] 3D CERVICAL SPINE WO CONT RASTon 01-12-2019 CT 3D CERVICAL SPINE WO CONTRAST [facility] Department of Radiology [address] [place] [id number] Patient Name: MATTY GARCES : 1970 Sex: M Age: Race: White Pt. Location: Patient Status: D Ordered Date: 01/10/2019 2:15:00 PM Completed Date: 01/12/2019 10:32 AM Requesting Provider: LUCIANO VIEIRA Attending Provider: LUCIANO VIEIRA Report Copy To: VENUS MENDEZ Signs & Symptoms: M48.02 Spinal stenosis, cervical region I10 History: [place] para auth # [id number] 01/10/19-02/09/19 [id number] *er Comments: Exam: CT 3D CERVICAL SPINE [...] incomplete Electronically signed by:Ten Garland. Transcribed by: [email or web address], User Resident: Electronically Signed by: TEN GARLAND @ 01/13/2019 09:18 AM [place] [facility] CERVICAL SPINE 2 OR 3 [facility] 01-05-2019 CERVICAL SPINE 2 OR 3 [facility] Department of Radiology [address] [place] [id number] Patient Name: MATTY GARCES : 1970 Sex: M Age: Race: White Pt. Location: Patient Status: O Ordered Date: 01/05/2019 9:00:00 AM Completed Date: 01/05/2019 09:06 AM Requesting Provider: LUCIANO VIEIRA Attending Provider: LUCIANO VIEIRA Report Copy To: Signs & Symptoms: M48.02 Spinal stenosis, cervical region I10 History: [place] Comments: , , , Ordering Provider - LUCIANO VIEIRA MD , Exam: CERVICAL SPINE 2 OR 3 [facility] CERVICAL SPINE 2 OR 3 S 01/05/2019 [...] findings. Electronically signed by:Ten Garland. Transcribed by: [email or web address], User Resident: SHELLY DELA CRUZ Electronically Signed by: TEN GARLAND @ 01/05/2019 12:37 PM I personally read this/these film(s) with this resident Normal [facility] Comment on above: Order Comment: , , = ========= , Ordering Provider - LUCIANO VIEIRA MD , CERVICAL SPINE 2 OR 3 [facility] 08-30-2018 CERVICAL SPINE 2 OR 3 S [facility] Department of Radiology [address] [place] [phone] Patient Name: MATTY GARCES : 1970 Sex: M Age: Race: White Pt. Location: Patient Status: O Ordered Date: 08/30/2018 9:35:00 AM Completed Date: 08/30/2018 09:43 AM Requesting Provider: LUCIANO VIEIRA Attending Provider: LUCIANO VIEIRA Report Copy To: VENUS MENDEZ Signs & Symptoms: M50.90 Cervical disc disorder, unsp, unspecified cervical region I10 History: [place] Comments: , POST OP XRAY AP/LAT ONLY [...] findings. Electronically signed by:Bella King. Transcribed by: [email or web address], User Resident: RYAN HEAD Electronically Signed by: BELLA KING @ 08/30/2018 05:45 PM I personally read this/these film(s) with this resident Normal [facility] Comment on above: Order Comment: , POS T OP XRAY AP/LAT ONLY , POST OP XRAY AP/LAT ONLY , , , Ordering Provider - LUCIANO VIEIRA MD , Operative Reporton 8 Operative Report MR#: [id number] I [facility] Pt. Name: Matty Garces Room #: [id number] Discharge Date: Birthdate: 1970 OPERATIVE REPORT DATE OF SURGERY: 08/17/2018 SURGEON: Luciano Vieira M.D. PREOPERATIVE DIAGNOSIS: Herniated cervical disk at C6-7. POSTOPERATIVE DIAGNOSIS: Herniated cervical disk at C6-7. 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 ANESTHESIA: Endotracheal, Braida. PROCEDURE: Anterior [...] Vieira M.D. Date Trans: 08/17/2018 11:25 P/sasha [id number] cc: Venus Mendez M.D. [address] [facility] [address] [place] [facility] CERVICAL SPINE 2 OR 3 [facility] 08-17-2018 CERVICAL SPINE 2 OR 3 [facility] Department of Radiology [address] [place] [address] Patient Name: MATTY GARCES : 1970 Sex: M Age: Race: White Pt. Location: Patient Status: I Ordered Date: 08/17/2018 8:30:00 AM Completed Date: 08/17/2018 11:49 AM Requesting Provider: LUCIANO VIEIRA Attending Provider: LUCIANO VIEIRA Report Copy To: Signs & Symptoms: C6-7 ACDF with History: C6-7 ACDF with Comments: C6-7 ACDF with Exam: CERVICAL SPINE 2 OR 3 [facility] CERVICAL SPINE 2 OR 3 S 08/17/2018 [...] findings. Electronically signed by:Bernice Hoyt. Transcribed by: [email or web address], User Resident: EMILE TINAJERO Electronically Signed by: BERNICE HOYT @ 08/18/2018 01:06 PM I personally read this/these film(s) with this resident Normal [facility] Comment on above: Order Comment: C6-7 ACDF with POC GLUCOSE LABon 08-17-2018 Glucose [Mass/Vol] 113 mg/dL High 70-100 [facility] Comment on above: Performed By: #### 8 5499 #### [facility] [address] RBC'S 2 UNITSon 08-17-2018 CROSSMATCH INTERP 1 COMP Normal [facility] Comment on above: Performed By: #### 8 6002 #### [facility] [address] CROSSMATCH INTERP 2 COMP Normal [facility] Comment on above: Performed By: #### 8 6002 #### [facility] [address] PRODUCT CODE 1 E0336 Normal [facility] Comment on above: Performed By: #### 8 6002 #### [facility] [address] PRODUCT CODE 2 E0336 Normal [facility] Comment on above: Performed By: #### 8 6002 #### [facility] [address] PRODUCT STATUS 1 RE Normal The [facility] Comment on above: Result Comment: Resu lt changed by IF on 08/20/2018 07:48. The previous value was XM. Performed By: #### 8 6002 #### [facility] [address] [place] [address], [facility] PRODUCT STATUS 2 RE Normal The [facility] Comment on above: Result Comment: Resu lt changed by IF on 08/20/2018 07:48. The previous value was XM. Performed By: #### 8 6002 #### [facility] [address] [place] [address], [place] UNIT ABO 1 A Normal [facility] Comment on above: Performed By: #### 8 6002 #### [facility] [address] [place] [address], [facility] UNIT ABO 2 A Normal [facility] Comment on above: Performed By: #### 8 6002 #### [facility] [address] [place] [address], [facility] UNIT ID 1 [id number] Normal The [facility] Comment on above: Performed By: #### 8 6002 #### [facility] [address] [place] [address], [facility] UNIT ID 2 [id number] [facility] Comment on above: Performed By: #### 8 6002 #### [facility] [address] [facility] [place] [address], [place] UNIT RH 1 Positive Normal [facility] Comment on above: Performed By: #### 8 6002 #### [facility] [address] [place] [address], [place] UNIT RH 2 Positive Normal [facility] Comment on above: Performed By: #### 8 6002 #### [facility] [address] [facility] [place] [address], [facility] *MRSA/MSSA CULTUREon 018 *MRSA/MSSA CULTURE Clinical Report: (D) Specimen: NASAL SWAB Collected: 08/02/2018 12:37 Status: Final Last Updated: 08/03/2018 14:26 ISO (Final) No Methicillin Resistant Staphylococcus aureus Isolated (MRSA) ISO (Final) Methicillin Sensitive Staphylococcus aureus (MSSA) Isolated Normal [facility] Comment on above: Performed By: #### 3 1302 #### [facility] [address] APTTon 08-02-2018 aPTT Coag (Bld) [Time] 31.2 s Normal 25.0-35.0 [facility] Comment on above: Result Comment: [...] THIS PURPOSE. Performed By: #### 5 7307, 82476 #### [facility] [address] BASIC METABOLIC PANELon 07-15 Calcium [Mass/Vol] 9.4 mg/dL Normal 8.6-10.3 [facility] Comment on above: Performed By: #### 0 0071 #### [facility] [address] [place] [address], [facility] Chloride [Moles/Vol] 103 mmol/L Normal 98-107 [facility] Comment on above: Performed By: #### 0 0071 #### [facility] [address] [place] [address], [facility] CO2 [Moles/Vol] 29 mmol/L Normal 21-31 [facility] Comment on above: Performed By: #### 0 0071 #### [facility] [address] [place] [address], [facility] Creatinine [Mass/Vol] 1.06 mg/dL Normal 0.70-1.30 [facility] Comment on above: Performed By: #### 0 0071 #### [facility] [address] [place] [address], [facility] GFR/1.73 sq M predicted among blacks MDRD (S/P/Bld) [Vol rate/Area] mL/min/{1.73_m2} Normal >60 [facility] Comment on above: Performed By: #### 0 0071 #### [facility] [address] [place] [address], [facility] GFR/1.73 sq M predicted among non-blacks MDRD (S/P/Bld) [Vol rate/Area] mL/min/{1.73_m2} Normal >60 [facility] Comment on above: Performed By: #### 0 0071 #### [facility] [address] [place] [address], [facility] Glucose [Mass/Vol] 84 mg/dL Normal 70-100 [facility] Comment on above: Performed By: #### 0 0071 #### [facility] [address] [place] [address], [facility] Potassium [Moles/Vol] 4.0 mmol/L Normal 3.5-5.1 [facility] Comment on above: Performed By: #### 0 0071 #### [facility] [address] [place] [address], [facility] Sodium [Moles/Vol] 140 mmol/L Normal 136-145 [facility] Comment on above: Performed By: #### 0 0071 #### [facility] [address] [place] [address], [facility] Urea nitrogen [Mass/Vol] 20 mg/dL Normal 7-25 [facility] Comment on above: Performed By: #### 0 0071 #### [facility] [address] [place] [address], [place] CBC W/DIFFon 08-02-2018 ABS BASOPHILS 0.1 10*3/uL Normal 0.0-0.2 [facility] Comment on above: Performed By: #### 5 0103 #### [facility] [address] [facility] [place] [address], [facility] ABS IMM GRANS 0.1 10*3/uL Normal 0.0-0.2 [facility] Comment on above: Performed By: #### 5 0103 #### [facility] [address] [place] [address], [facility] ABS NEUTROPHILS 4.2 10*3/uL Normal 1.6-7.[address] [facility] Comment on above: Performed By: #### 5 0103 #### [facility] [address] [place] [address], [facility] Basophils/100 WBC (Bld) 1.3 % High 0.0-1.0 [facility] Comment on above: Performed By: #### 5 0103 #### [facility] [address] [facility] [place] [address], [facility] Eosinophils (Bld) [#/Vol] 0.1 10*3/uL Normal 0.0-0.5 [facility] Comment on above: Performed By: #### 5 0103 #### [facility] [address] [facility] [place] [address], [facility] Eosinophils/100 WBC (Bld) 2.0 % Normal 0.0-6.0 [facility] Comment on above: Performed By: #### 5 0103 #### [facility] [address] [facility] Erythrocyte distribution width (RBC) [Ratio] 13.6 % Normal 11.5-15.0 [facility] Comment on above: Performed By: #### 5 3 #### [facility] [address] [place] [address], [facility] Hematocrit (Bld) [Volume fraction] 44.3 % Normal 39.0-50.0 [facility] Comment on above: Performed By: #### 5 0103 #### [facility] [address] [facility] [place] [address], [facility] Hemoglobin (Bld) [Mass/Vol] 15.1 g/dL Normal 13.0-17.0 [facility] Comment on above: Performed By: #### 5 3 #### [facility] [address] [place] [address], [facility] IMMATURE GRANS 1.1 % High 0.0-1.0 [facility] Comment on above: Performed By: #### 3 #### [facility] [address] [place] [address], [facility] Lymphocytes (Bld) [#/Vol] 1.2 10*3/uL Normal 1.2-4.0 [facility] Comment on above: Performed By: #### 5 3 #### [facility] [address] Lymphocytes/100 WBC (Bld) 18.3 % Low 20.0-45.0 [facility] Comment on above: Performed By: #### 5 3 #### [facility] [address] [place] [address], [facility] MCH (RBC) [Entitic mass] 29.0 pg Normal 27.0-33.0 [facility] Comment on above: Performed By: #### 5 3 #### [facility] [address] [place] [address], [facility] MCHC (RBC) [Mass/Vol] 34.1 g/dL Normal 32.0-35.0 [facility] Comment on above: Performed By: #### 5 3 #### [facility] [address] [place] [address], [facility] MCV (RBC) [Entitic vol] 85.0 fL Normal 82.0-98.0 [facility] Comment on above: Performed By: #### 5 0103 #### [facility] [address] [place] [address], [facility] Monocytes (Bld) [#/Vol] 0.7 10*3/uL Normal 0.1-1.0 [facility] Comment on above: Performed By: #### 102 #### [facility] [address] [place] [address], [facility] MONOS 11.1 % Normal 5.0-12.0 [facility] Comment on above: Performed By: #### 102 #### [facility] [address] [facility] [place] [address], [facility] Neutrophils/100 WBC (Bld) 66.2 % Normal 40.0-72.0 [facility] Comment on above: Performed By: #### 102 #### [facility] [address] [facility] [address], [facility] Nucleated RBC/100 WBC (Bld) [Ratio] 0 % Normal 0-0 [facility] Comment on above: Performed By: #### 102 #### [facility] [address] [facility] [place] [address], [facility] PLAT CNT 179 10*3/uL Normal 150-400 [facility] Comment on above: Performed By: #### 102 #### [facility] [address] [facility] [place] [address], [facility] RBC (Bld) [#/Vol] 5.21 10*6/uL Normal 4.20-5.70 The [facility] Comment on above: Performed By: #### 102 #### [facility] [address] [place] [address], [facility] WBC (Bld) [#/Vol] 6.39 10*3/uL Normal 4.00-10.60 [facility] Comment on above: Performed By: #### 3 #### [address] CERVICAL SPINE 4 OR 5 VIEWSo n 08-02-2018 CERVICAL SPINE 4 OR 5 VIEWS [facility] Department of Radiology [address] [place] [id number] Patient Name: MATTY GARCES : 1970 [...] findings. Electronically signed by:Bella King. Transcribed by: [email or web address], User Resident: EMILE TINAJERO Electronically Signed by: BELLA KING @ 08/03/2018 11:58 AM I personally read this/these film(s) with this resident Normal [facility] Comment on above: Order Comment: , PRE OP XRAY AP/LAT \EANDE\ FLEX/EX , PREOP XRAY AP/LAT \EANDE\ FLEX/EX , , , Ordering Provider - LUCIANO VIEIRA MD , PROTHROMBIN TIMEon 8 INR Coag (PPP) [Relative time] 1.15 {INR} Normal 0.91-1.16 [facility] Comment on above: Result Comment: [...] CHEST 1995;108:[id number]. Performed By: #### 5 7307, [id number] #### [facility] [address] [place] [address], [facility] PT Coag (PPP) [Time] 14.7 s Normal 12.3-14.8 [facility] Comment on above: Result Comment: ALL RESULTS MUST BE INTERPRETED WITH RESPECT TO BLOOD DRAWING ARTIFACT OR DILUTION ERROR OF ANTICOAGULANT AT THE TIME OF SAMPLING. Performed By: #### 5 7307, [id number] #### [facility] [address] [place] [address], [facility] TYPE AND SCREENon 08-02-2018 ABO INTERPRETATION A Normal The [facility] Comment on above: Order Comment: 2 uni ts 2 units 2 units 2 units 2 units Performed By: #### 6 2586 #### [facility] [address] [place] [address], [facility] RH INTERPRETATION Positive Normal The [facility] Comment on above: Order Comment: 2 uni ts 2 units 2 units 2 units 2 units Performed By: #### 6 2586 #### [facility] [address] [place] [id number], [facility] URINALYSIS REFLEXon 08-02-20 18 Appearance (U) CLEAR Normal CLEAR [facility] Comment on above: Performed By: #### 3 0965 #### [facility] [address] [place] [id number], [facility] Bilirubin [Mass/Vol] Negative Normal NEGATIVE [facility] Comment on above: Performed By: #### 3 0933 #### [facility] [address] [place] [address], [facility] BLOOD Negative Normal NEGATIVE [facility] Comment on above: Performed By: #### 3 0965 #### [facility] [address] [place] [address], [facility] Color (U) YELLOW Normal YELLOW [facility] Comment on above: Performed By: #### 3 0965 #### [facility] [address] [place] [address], [facility] Glucose [Mass/Vol] 150 mg/dL Abnormal NEGATIVE [facility] Comment on above: Performed By: #### 3 0965 #### [facility] [address] [place] [address], [facility] KETONE Negative Normal NEGATIVE [facility] Comment on above: Performed By: #### 3 0965 #### [facility] [address] [place] [address], [place] Negative Normal NEGATIVE [facility] Comment on above: Performed By: #### 3 0965 #### [facility] [address] [place] [address], [facility] MICRO NOT DONE negative chemical reactions unless requested in original order Normal [facility] Comment on above: Performed By: #### 3 0965 #### [facility] [address] [place] [address], [facility] Nitrite Ql (U) Negative Normal NEGATIVE [facility] Comment on above: Performed By: #### 3 0965 #### [facility] [address] [place] [address], [facility] pH (Bld) 5.0 Normal 5.0-8.0 [facility] Comment on above: Performed By: #### 3 0965 #### [facility] [address] [place] [address], [facility] Protein (U) [Mass/Vol] Negative Normal NEGATIVE [facility] Comment on above: Performed By: #### 3 0965 #### [facility] [address] [place] [address], [facility] SPEC GRAV 1.024 High 1.015-1.020 [facility] Comment on above: Performed By: #### 3 0965 #### [facility] [place] [address], [facility] Vital Signs Date Time Vital Sign Value Performing Clinician Molly bunn 02-25-2022 10:30-0400 Blood Pressure Location Viola Lue [facility] 02-25-2022 10:30-0400 Diastolic blood pressure 107 mm[Hg] Viola Lue [facility] [employer] 02-25-2022 10:30-0400 Heart rate 74 /min Viola Lue [facility] [employer] [facility] 02-25-2022 10:30-0400 Respiratory rate 16 /min Viola Lue [facility] 02-25-2022 10:30-0400 Systolic blood pressure 157 mm[Hg] Viola Lue [facility] [employer] Encounters Encounter Date Encounter Type Care Provider Facility Start: 09-27-2023 End: 09-27-2023 ambulatory RUBÉN GEIGER Not Available Start: 08-30-2023 End: 08-31-2023 ambulatory [facility] Start: 07-12-2023 End: 07-13-2023 ambulatory Diallo Beauchamp MD Facility: [facility] Start: 06-14-2023 End: 06-15-2023 ambulatory Diallo Beauchamp MD Facility:[facility] Start: 03-11-2023 End: 03-11-2023 ambulatory Rubén Geiger Facility:[facility] Start: 12-06-2022 End: 12-06-[address] VENUS MENDEZ . Facility: Start: 12-05-2022 Encounter for genera l adult medical examination without abnormal findings DR VENUS MENDEZ . [facility] Start: 12-01-2022 End: 12-02-[address] VENUS [...] encounter procedure Viola Grullon [facility] Start: 01-04-2022 End: 01-05-[address] VENUS MENDEZ . Facility: Start: 01-30-2019 End: 02-01-2019 Evaluation and management of inpatient PROVIDER UNKNOWN Facility:[facility] Start: 08-17-2018 End: 08-18-2018 Patient encounter procedure PROVIDER UNKNOWN Facility:[facility] Procedures Date Procedure Procedure Detail Performing Clinician Start: 12-01-[address] FRANKLIN MENDEZ . Comment on above: Performed By: #### P [facility] #### [facility] [address] [place] [address] Dr. Shabnam Rae Start: 01-30-2019 FUSION CERV JT W INT BD FUS DEV, ANT APPR A COL, OPEN AZEDINE MED[facility] Start: 01-30-2019 REMOVAL OF INT FIX F ROM CERVCAL VERTEBRA, OPEN APPROACH [facility] Start: 01-23-2019 Antibody screen PROVIDE R UNKNOWN Comment on above: Performed By: #### 5 7307, 10008 #### [facility] [address] [facility] Start: 08-17-2018 ANESTH SPINE CORD SURGERY [...] units Performed By: #### 6 2586 #### [facility] [address] Colonoscopy Viola Grullon Hemorrhoids (disorder) Viola Breezie Hernia of abdominal cavity (disorder) Viola Breezie Tonsillectomy Viola Breezie Payers Date Payer Category Payer Self-pay 2022 Medicaid [id number] 2022 Unknown 1970 Unknown [id number] 2.16.8 [id number] 1970 Unknown [id number] 2.16.8 [id number] 1970 Unknown [id number] 2.16.84 [id number] 1970 Unknown [id number] 2.16.84 [id number] 1970 Unknown [id number] 2.16.84 [id number] 1970 Unknown [id number] 2.16.84 0.1.164849.3.579.2.593 1970 Unknown [id number] 2.16.84 0.1.492804.3.579.2.593 1970 Unknown [id number] 2.16.84 0.1.117523.3.579.2.593 1970 Unknown [id number] 2.16. [id number] 1970 Unknown [id number] 2.16. [id number] 1970 Unknown [id number] 2.16. 840.1.077223.3.579.2.196 1970 Unknown [id number] 2.16.84 0.1.120541.3.579.2.1259 1959 Unknown [id number] Unknown [id number] Unknown [id number] 2.16.8 [id number] Social History Date Type Detail Facility Tobacco smoking status No Smoking Status Entered [facility] Sex Assigned At Male [facility] Functional Status Date Assessment Result Facility 02-25-2022 Functional Status N/A [facility] Progress note 06-09-2023 Note Date & Type Note Facility 06-09-2023 Note [facility] Continue GDMT- Diuretic therapy Monitor daily weights, I&O, fluid restriction 1.5-2L/day, renal function and electrolytes- [facility] Clinical Note 03-26-2022 Note Date [...] authenticated by: ALVINA CAICEDO Date: 2022-03-26 10:47 [facility] Discharge instructions 02-25-2022 Note Date & [...] Watch the hydrocele for any changes. Take awxp-[id number]-[id number] and prescription medicines only as told by [...] 02/17/2011 Document Revised: 09/10/2018 Document Reviewed: 09/10/2018 [employer] Patient Education 2020 [employer]. Follow Up Care 01/28/2022 10:36:35 With:Mitchel DELGADO, [place] Gregorio, URO Address: When: Unknown [facility] Evaluation + Plan note Note Date & Type Note Facility Evaluation + Plan note No data available for this section [facility] Progress note Note Date & Type Note Facility Progress note No data available for this section [facility] Summary Purpose Family History No Family [...] Records Found Hospital Course Note MR#: [id number] [facility] Pt. Name: Matty Garces Admitted: 01/30/2019 Discharged: [...] section and content) DATE CREATED AUTHOR 07/19/2019 [facility] DATE CREATED AUTHOR AUTHOR'S ORGANIZ ATION 02/27/2022 [facility] DATE CREATED AUTHOR AUTHOR'S ORGANIZ ATION 12/08/2022 [facility] DATE CREATED AUTHOR AUTHOR'S ORGANIZ ATION 03/17/2023 [facility] DATE CREATED AUTHOR AUTHOR'S ORGANIZ ATION 06/17/2023 [facility] DATE CREATED AUTHOR AUTHOR'S ORGANIZ ATION 09/03/2023 [facility] DATE CREATED AUTHOR AUTHOR'S ORGANIZ ATION 09/27/2023 [facility] EPIC Care Team (unrecognized sect ion and content) Personnel Name: Venus Mendez MD Address: [address] [place] [address] FOR RECORDS PERTAINING TO PATIENTS WHO ARE [...] BE BASED ON THE PRIMARY CLINICAL RECORDS. [facility] [employer] provides no warranty or guarantee of the accuracy or completeness of information in this document.
--- NOTE | 2023-11-17 10:36 | PM.CN ---
Consult Note: HPI Data of Consult Patient: known to practice within the last 3 years Consult date: 06/14/23 Requesting Physician: iNcole Acevedo NP Primary Care Provider: Caden Mendez MD Consult Narrative Reason for consult: chronic pain Narrative: 52yom who presents for assessment. notes increasing axial low back pain, worsened with standing and ambulation. engaged in >6 weeks of provider directed home exercises, with minimal benefit. Patienr recently underwent bilateral L4-5 L5-S1 facet RFA with 95% improvement in pain. Patient would now like to discuss chronic bilateral knee pain, no hx of injection therapy. Patient reports pain increased with activity, standing, walking, decreased with rest. Patient would like to talk about injection therapy options. cc:: CC: Nicole Acevedo NP Review of Systems ROS Status of ROS 10 or more systems reviewed and unremarkable except as noted in history and below Musculoskeletal Reports: back pain and joint pain PFSH [facility] Medical History Narcolepsy ?G47.419 - 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) Anxiety ?F41.9 - Anxiety disorder, unspecified (ICD-10) Upper back pain ?M54.9 - Dorsalgia, unspecified (ICD-10) Low back pain ?M54.50 - Low back pain, unspecified (ICD-10) TMJ (dislocation of temporomandibular joint) ?S03.00XA - Dislocation of jaw, unspecified side, initial encounter (ICD-10) Obesity ?E66.9 - Obesity, unspecified (ICD-10) Sleep apnea ?G47.30 - Sleep apnea, unspecified (ICD-10) Hypertension ?I10 - Essential (primary) hypertension (ICD-10) Surgical History History of fusion of cervical spine ?Z98.1 - Arthrodesis status (ICD-10) H/O inguinal hernia repair ?Z98.890 - Other specified postprocedural states (ICD-10) ?Z87.19 - Personal history of other diseases of the digestive system (ICD-10) H/O repair of rotator cuff ?Z98.890 - Other specified postprocedural states (ICD-10) History of uvulopalatopharyngoplasty ?Z98.890 - Other specified postprocedural states (ICD-10) Meds Home Medications and Allergies Home Medications Medication Instructions Recorded Confirmed Type carvedilol 25 mg tablet 25 mg PO BID 06/14/23 10/18/23 History citalopram 20 mg tablet 20 mg PO DAILY 06/14/23 10/18/23 History clonazepam 0.5 mg tablet 0.5 mg PO DAILY 06/14/23 09/04/23 History doxazosin 8 mg tablet 8 mg PO DAILY 06/14/23 10/18/23 History doxepin 10 mg capsule 10 mg PO DAILY PRN itching 06/14/23 09/04/23 History furosemide 20 mg tablet 20 mg PO DAILY 06/14/23 10/18/23 History gabapentin 600 mg tablet 600 mg PO BID 06/14/23 10/18/23 History glycopyrrolate 1 mg tablet 1 mg PO BID 06/14/23 10/18/23 History hydroxyzine pamoate 25 mg capsule 25 mg PO QPM 06/14/23 10/18/23 History meclizine 25 mg tablet 25 mg PO DAILY 06/14/23 10/18/23 History pantoprazole 40 mg tablet,delayed 40 mg PO DAILY 06/14/23 10/18/23 History release sildenafil 25 mg tablet 25 mg PO DAILY 06/14/23 10/18/23 History simvastatin 20 mg tablet 20 mg PO DAILY 06/14/23 10/18/23 History testosterone cypionate 100 mg/mL 100 mg subcut .EVERY 2 WEEKS 06/14/23 10/18/23 History intramuscular oil tizanidine 4 mg capsule 4 mg PO .EVERY NIGHT 06/14/23 10/18/23 History etodolac 400 mg tablet (Lodine) 400 mg PO Q12H PRN pain #30 tabs 08/11/23 10/18/23 Rx aspirin 81 mg tablet,delayed 81 mg PO DAILY 09/04/23 10/18/23 History release (Miguel Angel Low Dose Aspirin) ibuprofen 800 mg tablet 800 mg PO Q8H PRN pain #20 tabs 09/04/23 10/18/23 Rx modafinil 200 mg tablet 200 mg PO DAILY 09/04/23 10/18/23 History potassium chloride 10 mEq 10 meq PO Q12H 09/04/23 10/18/23 History tablet,extended release Allergies Allergy/AdvReac Type Severity Reaction Status Date / Time No Known Drug Allergies Allergy Verified 10/18/23 07:50 Exam Narrative Exam Narrative: Psych-alert and oriented x 3. Attentive and appropriate, constitutionally normal, displays normal mood and affect per situation.? There are no obvious deficits in memory, reasoning, or intellect.? Skin-no obvious rashes, bruising, erythema noted to the patient's area of pain. Extremities- extremities are warm with minimal edema and palpable pulses. Lumbar-no significant tenderness to palpation noted in the lumbar spine and paraspinal musculature.? Pain is elicited with extension, and lateral rotation of the lumbar spine. Range of motion is slightly diminished with these motions due to pain. Facet loading maneuvers are positive bilaterally and do appear to be concordant with the patient's normal complaints of pain.? Coordination remains intact.? Gait remains non-antalgic. Constitutional Documenting provider has reviewed patient's vital signs: yes Common normals: no apparent distress, oriented x3, healthy appearing, alert and well nourished General appearance: cooperative HENMT Common normals: normocephalic, hearing grossly normal bilaterally and moist oral mucous membranes Head and scalp: normocephalic Eye Common normals: PERRL Pupil: PERRL Neck & C-Spine Common normals: full ROM General: normal visual inspection Cervical spine: cervical ROM abnormal and pain with cervical ROM Chest Common normals: inspection of chest normal Respiratory Common normals: normal respiratory effort, no retractions and no use of accessory muscles Back & Pelvis Lumbar spine/lower back: ROM limited, pain with ROM and straight leg raise negative bilaterally Extremity Right lower extremity: knee joint Left lower extremity: knee joint Other: bilateral knees enlarged diameter, no edema, crepitus noted. pain with medial and lateral stress testing. no instablity noted Neuro Common normals: oriented x3, CN's II-XII intact bilaterally, moves all extremities, no focal motor deficits, no sensory deficits noted and deep tendon reflexes 2+ bilaterally Sensorium/orientation: alert Motor exam: strength 5/5 throughout and no movement abnormalities noted Psych Common normals: mental status grossly normal, thought process normal, cooperative, affect normal, speech normal and activity/motor behavior normal Speech: normal speech Thought process: normal thought process Results Imaging bilateral knee xray: Attestation: I personally reviewed and interpreted this imaging study as follows: My impression: bilateral knees mild OA Additional Findings Additional findings: I have checked an OARRS report on this patient today and there are no aberrancies noted in the prescribing history.?? A drug screen was completed and reviewed within the last year, and if there has not been a drug screen completed we ordered one today to monitor higher risk, state monitored pain medication use. As part of providing excellent, safe, comprehensive care, the following was completed at our patient's visit: 1. A medication reconciliation and review to ensure accurate knowledge of current/active medications, including asking our patients to inform us about any [id number] medications or herbal remedies/nutritional supplements/alternative remedies. 2. A review to specifically ensure our patients have had annual screening for: elevated body mass index (BMI), tobacco use, screening for depression, and screening for unhealthy alcohol use. When screening is concerning, patients are provided with education and the specific recommendation to discuss the concerning health issue and treatment options with their primary care provider. Assessment and Plan Assessment and Plan (1) Lumbar spondylosis: (2) Bilateral knee pain: Plan bilateral knee xrays obtained and reviewed, bilateral knee injections with Dr Beauchamp continue current medication regimen, tolerating well without side effects f/u after injections
== END 2023-11-17 10:13 | disposition home or self-care (01) ==
LOC: PM 10:12
PROVIDERS: PCP Family Medicine; Visit Provider Nurse Practitioner
DX: M47.816 Spondylosis without myelopathy or radiculopathy, lumbar region (principal); M25.561 Pain in right knee; M25.562 Pain in left knee
CPT/HCPCS: 73564; G0463

== ENCOUNTER 2023-11-17 10:46 | Outpatient (OUT) | payer MEDICAID, SELFPAY ==
--- OUTSIDE RECORDS SUMMARY | 2023-11-17 10:54 | XMS_ITS | CCD ---
Author Name Unknown Address [address] [place] [address] Organization [facility] Care Team Providers Care Oil Distributor Tender Name Role Phone UNKNOWN, PROVIDER Admitting Unavailable UNKNOWN, PROVIDER Attending Unavailable VENUS MENDEZ Referring Unavailable VENUS MENDEZ Primary Care Unavailable HI Procedure Practitioner Unavailab le UNKNOWN, PROVIDER Surgeon Unavailable HI Procedure Practitioner Unavailab le SANDRA BILL Surgeon Unavailable UNKNOWN, PROVIDER Admitting Unavailable UNKNOWN, PROVIDER Attending Unavailable VENUS MENDEZ Referring Unavailable VENUS MENDEZ Primary Care Unavailable HI Procedure Practitioner Unavailab le UNKNOWN, PROVIDER Surgeon Unavailable Venus Mendez Primary Care Physician [phone] DONOVAN Admitting Unavailable HOY [...] (1 source) Aspartame Drug Allergy 08-17-20 [facility] [place] [facility] Repository (1 source) avoid; Translations: [Unknown] Propensity to adverse reactions (disorder) 08-17-20 [facility] [place] [facility] Repository (1 source) vitamin B12; Translations: [cyanocobalamin] Drug Allergy Unknown (qualifier value) [facility] (1 source) Acetaminophen / HYDROcodone Drug Allergy [facility] Repository (1 source) Corticosteroids Drug allergy (disorder) [facility] (1 source) fentaNYL Drug Allergy [facility] Rep[facility] (1 source) Misc-Food; Translations: [Misc-Food] Food allergy (disorder) [facility] Rep[facility] (1 source) Corticosteroids Drug allergy (disorder) 05-14-20 [facility] Repository Medications Current Medications Medication Drug Class(es) [...] Onset: 3 Chronic Other aftercare (1 source) correction (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; 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] Onset: 3 Episodic Other aftercare (1 source) Other ocean transportation intermediary (current) drug therapy; Translations: [OTH [facility] CURRENT DRUG THERAPY] Onset: 3 Episodic Other [...] spine 5V*on 02-12 XR cervical spine 5V* [facility] Main [address] [address] XRay Report Signed Patient: Matty Garces MR#: [id number] 97 : 1970 Acct:[id number] Age/Sex: 52 / M ADM Date: 03/11/23 Loc: ICXD Room: Type: [facility] Attending Dr: Rubén Geiger MD Copies [...] Crow Contreras M.D.03/11/2023 3:48 PM Dictation Location: [place] [address] Transcribed By: [facility] 03/11/23 1548 Dictated By: Crow Contreras DO 03/11/23 1544 Signed By: 03/11/23 1548 [facility] CT CSPINE WO CONon CT CSPINE WO [...] ANGEL SAID Date: 2022-12-06 06:37 Normal [facility] CT FACIAL BONES WO CONon CT [...] ANGEL SAID Date: 2022-12-06 06:41 Normal [facility] CT HEAD WO CONon 12-06-2022 CT [...] ANGEL SAID Date: 2022-12-06 06:39 Normal [facility] XR ELBOW RT MIN 3 VIEWSon XR ELBOW RT MIN 3 VIEWS Exam: Radiographs: XR ELBOW RT MIN 3 VIEWS Reason for exam: Elbow pain Comparison: None IMPRESSION: Right elbow degenerative changes. Olecranon spur. Remainder of the right elbow is unremarkable. Electronically authenticated by: MICHAEL CASANOVA Date: 2022-12-06 07:22 Normal [facility] XR FOREARM RT 2Von 03-26-202 3 XR FOREARM RT 2V Exam: Radiographs: XR FOREARM RT 2V Reason for exam: Forearm pain Comparison: None IMPRESSION: Mild degenerative changes in the right elbow and wrist. Right forearm is otherwise unremarkable. Electronically authenticated by: MICHAEL CASANOVA Date: 2022-12-06 08:07 Normal [facility] PSA, FREE AND TOTAL RATIOon 12-03-2022 % Free PSA 9.0 % Normal [facility] Comment on above: Result Comment: [...] men. Performed By: #### P SAFREE #### [facility] [address] [place] [address] Dr. Shabnam Rae Prostate specific Ag [Mass/Vol] 5.9 ng/mL Critically high 0.0-4.0 [facility] Comment on above: Result Comment: Roch lucy ECLIA methodology. . According to the [employer], Serum PSA should decrease and [...] disease. Performed By: #### P SAFREE #### [facility] [address] [place] [address] Dr. Shabnam Rae PSA, Free 0.53 ng/mL Normal N/A [facility] Comment on above: Result Comment: Roch e ECLIA methodology. Performed By: #### P SAFREE #### [facility] [address] [place] [address] Dr. Shabnam Rae INSULINon 12-02-2022 Insulin 20.2 uIU/mL Normal 2.6-24.9 [facility] Comment on above: Performed By: #### P SASC #### [facility] [address] [place] [address] [address] Shabnam Rae TESTOSTERONE, TOTALon 2022 Testosterone [Mass/Vol] 256 ng/dL Critically low 264-916 [facility] Comment on above: Result Comment: Adul t male reference interval is based on a population of healthy nonobese males (BMI <30) between 19 and 39 years old. adia Ch.al. JCEM 2017,102;9434-1364. PMID: [id number]. Performed By: #### P SASC #### [facility] [address] [place] [address] Dr. Shabnam Rae CBC AUTO DIFFon 12-01-2022 BASO # 0.1 103/ul Normal 0.0-0.1 [facility] Comment on above: Performed By: #### P SASC #### [facility] [address] [place] [address] Dr. Shabnam Rae Basophils/100 WBC (Bld) 1.0 % Normal 0.2-2.0 [facility] Comment on above: Performed By: #### P SASC #### [facility] [address] [place] [address] [address] Shabnam Rae EO # 0.1 103/ul Normal 0.0-0.7 [facility] Comment on above: Performed By: #### P SASC #### [facility] [address] [place] [address] Dr. Shabnam Rae Eosinophils/100 WBC (Bld) 1.8 % Normal 0.9-7.0 [facility] Comment on above: Performed By: #### P SASC #### [facility] [address] [place] [address] Dr. Shabnam Rae Erythrocyte distribution width (RBC) [Ratio] 14.8 % Normal 11.0-15.0 [facility] Comment on above: Performed By: #### P SASC #### [facility] [address] [place] [address] [address] Shabnam Rae Hematocrit (Bld) [Volume fraction] 49.9 % Normal 42.0-54.0 [facility] Comment on above: Performed By: #### P SASC #### [facility] [address] [place] [address] [address] Shabnam Rae Hemoglobin (Bld) [Mass/Vol] 16.0 g/dL Normal 14.0-18.0 [facility] Comment on above: Performed By: #### P SASC #### [facility] [address] [place] [address] [address] Shabnam Rae IG # 0.04 10e3/ul Critically high 0.00-0.03 [facility] Comment on above: Performed By: #### P SASC #### [facility] [address] [place] [address] Dr. Shabnam Rae IG % 0.6 % Critically high 0.0-0.5 [facility] Comment on above: Performed By: #### P SASC #### [facility] [address] [place] [address] [address] Shabnam Rae LYMPH # 1.0 103/ul Critically low 1.2-3.8 [facility] Comment on above: Performed By: #### P SASC #### [facility] [address] [place] [address] [address] Shabnam Rae Lymphocytes/100 WBC (Bld) 16.2 % Critically low 20.5-60.0 [facility] Comment on above: Performed By: #### P SASC #### [facility] [address] [place] [address] [address] Shabnam Rae MANUAL DIFF REQ NO Normal [facility] Comment on above: Performed By: #### P SASC #### [facility] [address] [place] [address] [address] Shabnam Rae MCH (RBC) [Entitic mass] 27.7 pg Normal 25.9-34.0 [facility] Comment on above: Performed By: #### P SASC #### [facility] [address] [place] [address] [address] Shabnam Rae MCHC (RBC) [Mass/Vol] 32.1 g/dL Normal 29.9-35.2 [facility] Comment on above: Performed By: #### P SASC #### [facility] [address] [place] [address] [address] Shabnam Rae MCV (RBC) [Entitic vol] 86.3 fL Normal 80.0-94.0 [facility] Comment on above: Performed By: #### P SASC #### [facility] [address] [place] [address] [address] Shabnam Rae MONO # 0.5 103/ul Normal 0.3-0.8 [facility] Comment on above: Performed By: #### P SASC #### [facility] [address] [place] [address] [address] Shabnam Rae Monocytes/100 WBC (Bld) 7.6 % Normal 1.7-12.0 [facility] Comment on above: Performed By: #### P SASC #### [facility] [address] [place] [address] [address] Shabnam Rae NEUT # 4.6 103/ul Normal 1.4-6.5 [facility] Comment on above: Performed By: #### P SASC #### [facility] [address] [place] [address] [address] Shabnam Rae Neutrophils/100 WBC (Bld) 72.8 % Normal 43.0-75.0 [facility] Comment on above: Performed By: #### P SASC #### [facility] [address] [place] [address] [address] Shabnam Rae Platelet mean volume (Bld) [Entitic vol] 9.8 fL Normal 9.5-13.5 [facility] Comment on above: Performed By: #### P SASC #### [facility] [address] [place] [address] [address] Shabnam Rae PLT 203 103/ul Normal 150-450 [facility] Comment on above: Performed By: #### P SASC #### [facility] [address] [place] [address] [address] Shabnam Rae RBC 5.78 106/ul Normal 4.70-6.10 [facility] Comment on above: Performed By: #### P SASC #### [facility] [address] [place] [address] Dr. Shabnam Rae WBC 6.3 103/ul Normal 4.0-11.0 [facility] Comment on above: Performed By: #### P SASC #### [facility] [address] [place] [address] Dr. Shabnam Rae FREE THYROXINE INDEX T7on FTI 2.05 Normal 1.30-4.50 [facility] Comment on above: Performed By: #### T SH, CMP, LIPID, T7, URIC #### [facility] [address] [place] [address] Dr. Shabnam Rae T3U 33.0 % Normal 33.0-40.0 [facility] Comment on above: Performed By: #### T SH, CMP, LIPID, T7, URIC #### [facility] [address] [place] [address] Dr. Shabnam Rae T4 [Mass/Vol] 6.20 ug/dL Normal 4.50-12.10 [facility] Comment on above: Performed By: #### T SH, CMP, LIPID, T7, URIC #### [facility] [address] [place] [address] Dr. Shabnam Rae GLYCOHEMOGLOBIN A1Con 2022 ADA RECOMMENDATION SEE BELOW Normal [facility] Comment on above: Result Comment: ADA RECOMMENDED LIMIT 4.0 - 6.0 ADA THERAPEUTIC TARGET < 7.0 ACTION SUGGESTED > 7.0 Performed By: #### P SASC #### [facility] [address] [place] [address] Dr. Shabnam Rae Glucose [Mass/Vol] 114 mg/dL Normal [facility] Comment on above: Performed By: #### P SASC #### [facility] [address] [place] [address] Dr. Shabnam Rae HbA1c (Bld) [Mass fraction] 5.6 % Normal 4.5-6.2 [facility] Comment on above: Performed By: #### P SASC #### [facility] [address] [place] [address] Dr. Shabnam Rae LIPID PROFILEon 12-01-2022 CHOL-HDL RATIO NORM SEE BELOW Normal [facility] Comment on above: Result Comment: 3.3 - 4.4 LOW RISK 4.4 - 7.1 AVERAGE RISK 7.1 - 11.0 MODERATE RISK >11.0 HIGH RISK Performed By: #### T SH, CMP, LIPID, T7, URIC #### [facility] [address] [place] [address] Dr. Shabnam Rae Cholesterol [Mass/Vol] 176 mg/dL Normal <=200 [facility] Comment on above: Performed By: #### T SH, CMP, LIPID, T7, URIC #### [facility] [address] [place] [address] Dr. Shabnam Rae Cholesterol in HDL [Mass/Vol] 48 mg/dL Normal 40-60 [facility] Comment on above: Performed By: #### T SH, CMP, LIPID, T7, URIC #### [facility] [address] [place] [address] Dr. Shabnam Rae Cholesterol in LDL [Mass/Vol] 108.2 mg/dL Normal [facility] Comment on above: Performed By: #### T SH, CMP, LIPID, T7, URIC #### [facility] [address] [place] [address] Dr. Shabnam Rae Cholesterol.total/Ch olesterol in HDL [Mass ratio] 3.7 {ratio} Normal [facility] Comment on above: Performed By: #### T SH, CMP, LIPID, T7, URIC #### [facility] [address] [place] [address] Dr. Shabnam Rae HDL NORMAL > or = 60 mg/dl - LOW CARDIOVASCULAR RISK <40 mg/dl - HIGH CARDIOVASCULAR RISK Normal [facility] Comment on above: Performed By: #### T SH, CMP, LIPID, T7, URIC #### [facility] [address] [place] [address] Dr. Shabnam Rae LDL CALC NORMAL SEE BELOW Normal [facility] Comment on above: Result Comment: <100 mg/dl OPTIMAL 100 - 129 mg/dl NEAR OR ABOVE OPTIMAL 130 - 159 mg/dl BORDERLINE HIGH 160 - 189 mg/dl HIGH >190 mg/dl VERY HIGH Performed By: #### T SH, CMP, LIPID, T7, URIC #### [facility] [address] [place] [address] [address] Shabnam Rae Triglyceride [Mass/Vol] 99 mg/dL Normal <=150 [facility] Comment on above: Performed By: #### T SH, CMP, LIPID, T7, URIC #### [facility] [address] [place] [address] [address] Shabnam Rae VLDL CALC 19.8 mg/dL Normal [facility] Comment on above: Performed By: #### T SH, CMP, LIPID, T7, URIC #### [facility] [address] [place] [address] [address] Shabnam Rae PROF 14(COMP METB)on 023 Albumin [Mass/Vol] 4.1 g/dL Normal 3.4-5.0 [facility] Comment on above: Performed By: #### T SH, CMP, LIPID, T7, URIC #### [facility] [address] [place] [address] [address] Shabnam Rae Albumin/Globulin [Mass ratio] 1.1 {ratio} Normal [facility] Comment on above: Performed By: #### T SH, CMP, LIPID, T7, URIC #### [facility] [address] [place] [address] [address] Shabnam Rae ALP [Catalytic activity/Vol] 101 U/L Normal 46-116 [facility] Comment on above: Performed By: #### T SH, CMP, LIPID, T7, URIC #### [facility] [address] [place] [address] [address] Shabnam Rae ALT [Catalytic activity/Vol] 26 U/L Normal 16-63 [facility] Comment on above: Performed By: #### T SH, CMP, LIPID, T7, URIC #### [facility] [address] [place] [address] [address] Shabnam Rae Anion gap [Moles/Vol] 10.1 mmol/L Normal [facility] Comment on above: Performed By: #### T SH, CMP, LIPID, T7, URIC #### [facility] [address] [place] [address] Dr. Shabnam Rae AST [Catalytic activity/Vol] 19 U/L Normal 15-37 [facility] Comment on above: Performed By: #### T SH, CMP, LIPID, T7, URIC #### [facility] [address] [address] [address] Shabnam Rae Bilirubin [Mass/Vol] 0.8 mg/dL Normal 0.2-1.0 [facility] Comment on above: Performed By: #### T SH, CMP, LIPID, T7, URIC #### [facility] [address] [place] [address] Dr. Shabnam Rae Calcium [Mass/Vol] 9.5 mg/dL Normal 8.5-10.1 [facility] Comment on above: Performed By: #### T SH, CMP, LIPID, T7, URIC #### [facility] [address] [address] [address] Shabnam Rae Chloride [Moles/Vol] 102 mmol/L Normal 98-107 [facility] Comment on above: Performed By: #### T SH, CMP, LIPID, T7, URIC #### [facility] [address] [place] [address] [address] Shabnam Rae CO2 [Moles/Vol] 32.4 mmol/L Critically high 21.0-32.0 [facility] Comment on above: Performed By: #### T SH, CMP, LIPID, T7, URIC #### [facility] [address] [place] [address] Dr. Shabnam Rae Creatinine [Mass/Vol] 1.00 mg/dL Normal 0.70-1.30 [facility] Comment on above: Performed By: #### T SH, CMP, LIPID, T7, URIC #### [facility] [address] [place] [address] Dr. Shabnam Rae EGFR-AF ANGUILLAN >60 Normal >=60 [facility] Comment on above: Performed By: #### T SH, CMP, LIPID, T7, URIC #### [facility] [address] [address] [address] Shabnam Rae EGFR-NON AF ANGUILLAN >60 Normal >=60 [facility] Comment on above: Performed By: #### T SH, CMP, LIPID, T7, URIC #### [facility] [address] [address] [address] Shabnam Rae Globulin (S) [Mass/Vol] 3.8 g/dL Normal [facility] Comment on above: Performed By: #### T SH, CMP, LIPID, T7, URIC #### [facility] [address] [place] [address] Dr. Shabnam Rae Glucose [Mass/Vol] 94 mg/dL Normal 74-106 [facility] Comment on above: Performed By: #### T SH, CMP, LIPID, T7, URIC #### [facility] [address] [place] [address] Dr. Shabnam Rae Potassium [Moles/Vol] 3.5 mmol/L Normal 3.5-5.1 [facility] Comment on above: Performed By: #### T SH, CMP, LIPID, T7, URIC #### [facility] [address] [place] [address] Dr. Shabnam Rae Protein [Mass/Vol] 7.9 g/dL Normal 6.4-8.2 [facility] Comment on above: Performed By: #### T SH, CMP, LIPID, T7, URIC #### [facility] [address] [address] [address] Shabnam Rae Sodium [Moles/Vol] 141 mmol/L Normal 136-145 [facility] Comment on above: Performed By: #### T SH, CMP, LIPID, T7, URIC #### [facility] [address] [place] [address] Dr. Shabnam Rae Urea nitrogen [Mass/Vol] 15.0 mg/dL Normal 7.0-18.0 [facility] Comment on above: Performed By: #### T SH, CMP, LIPID, T7, URIC #### [facility] [address] [id number] Shabnam Rae Urea nitrogen/Creatinine [Mass ratio] 15.0 mg/mg Normal [facility] Comment on above: Performed By: #### T SH, CMP, LIPID, T7, URIC #### [facility] [id number] Shabnam Rae TSHon 12-01-2022 TSH 1.504 uIU/mL Normal 0.358-3.740 [facility] Comment on above: Performed By: #### T SH, CMP, LIPID, T7, URIC #### [facility] [id number] Shabnam Rae URIC ACID SERUMon 12-01-2022 Urate [Mass/Vol] 6.9 mg/dL Normal 3.5-7.2 [facility] Comment on above: Performed By: #### T SH, CMP, LIPID, T7, URIC #### [facility] [address] [address] [address] Shabnam Rae TESTOSTERONE, TOTALon 2021 Testosterone [Mass/Vol] 244 ng/dL Critically low 264-916 [facility] Comment on above: Result Comment: Adul t male reference interval is based on a population of healthy nonobese males (BMI <30) between 19 and 39 years old. Dima, et.al. JCEM 2017,102;1320-4418. PMID: [id number]. Performed By: #### P SAFREE #### [facility] [address] [place] [address] Dr. Shabnam Rae TESTOSTERONE, FREE,DIRECT, T OTALon 03-16-2022 Free Testosterone(Direct) 2.1 pg/mL Critically low 7.2-24.0 [facility] Comment on above: Result Comment: Perf ormed at: BN Performed By: #### C VDTBH #### [facility] [id number] Shabnam Rae Testosterone [Mass/Vol] 252 ng/dL Critically low 264-916 [facility] Comment on above: Result Comment: Adul t male reference interval is based on a population of healthy nonobese males (BMI <30) between 19 and 39 years old. Dima et.al. JCEM 2017,102;8130-1260. PMID: [id number]. Performed at: CB Performed By: #### [facility] #### [facility] [address] [address] [address] Shabnam Rae Formson 02-26-2022 Forms [id number] 7#1.00CD:127 Normal [facility] Screenson 02-26-2022 Screens [id number] 7#1.00CD:127 Normal [facility] Screens [id number] #1.00CD:127 Normal [facility] Urology Office/Clinic Noteon 02-26-2022 Urology Office/Clinic [...] qualifying data (more content not included)... Normal [facility] Comment on above: Result Comment: Elec tronically Signed By: Viola Grullon MD\.br\Date and Time Signed: 02/26/22 00:20 EDT\.br\Electronically Co-Signed By: Helen Leung\.br\Date and Time Co-Signed: 02/25/22 11:16 EDT Ambulatory Visit Summaryon 0 02-25-2022 Ambulatory Visit Summary MATTY GARCES :1970 Visit Date:02/25/2022 Ambulatory Visit Instructions Your Diagnosis Hydrocele Varicocele BPH without urinary obstruction Tests Performed Urnls Dip Stick Auto w/o Microscopy POC 23210 Your Care Team Attending Physician - Viola [...] Urnls Dip Stick Auto w/o Microscopy POC 48152 (02/25/2022) Bilirubin Urine Dipstick - Negative Blood Urine Dipstick - Negative Glucose Urine Dipstick - Negative Ketones Urine Dipstick - Negative Leukocytes Urine Dipstick - Negative Nitrite Urine Dipstick - Negative Protein Urine Dipstick - Negative Specific [place] Urine Dipstick - >=1.030 Urine Appearance Urine [...] the hydrocele for any changes. ? Take avjt-lkj-byujapj and prescription medicines only as told by [...] intended t (more content not included)... Normal [facility] Patient Educationon 02-26-20 Patient Education Urology [...] the hydrocele for any changes. ? Take rtic-qnb-xxxzccd and prescription medicines only as told by [...] Reviewed: 09/10/2018 Elsevier Patient Education ? 2019 [employer]. [facility] ED Note-Physicianon 05-24-20 22 ED Note-Physician [id number] 62#1.00CD:127 Normal [facility] RAD - Ultrasound Reporton RAD - Ultrasound Report [id number] #1.00CD:127 Normal [facility] RAD - CT Reporton 02-02-2022 RAD - CT Report [id number] 55#1.00CD:127 Normal [facility] RAD - CT Report [id number] 75#1.00CD:127 Normal [facility] CBC AUTO DIFFon 01-05-2022 BASO # 0.0 103/ul Normal 0.0-0.1 [facility] Comment on above: Performed By: #### P SAFREE #### [facility] [address] [place] [address] Dr. Shabnam Rae Basophils/100 WBC (Bld) 0.6 % Normal 0.2-2.0 [facility] Comment on above: Performed By: #### P SAFREE #### [facility] [address] [address] [address] Shabnam Rae EO # 0.1 103/ul Normal 0.0-0.7 [facility] Comment on above: Performed By: #### P SAFREE #### [facility] [address] [address] [address] Shabnam Rae Eosinophils/100 WBC (Bld) 2.1 % Normal 0.9-7.0 [facility] Comment on above: Performed By: #### P SAFREE #### [facility] [address] [address] [address] Shabnam Rae Erythrocyte distribution width (RBC) [Ratio] 13.1 % Normal 11.0-15.0 [facility] [facility] Comment on above: Performed By: #### P SAFREE #### [facility] [address] [place] [address] Dr. Shabnam Rae Hematocrit (Bld) [Volume fraction] 43.1 % Normal 42.0-54.0 [facility] Comment on above: Performed By: #### P SAFREE #### [facility] [address] [address] [address] Shabnam Rae Hemoglobin (Bld) [Mass/Vol] 13.7 g/dL Critically low 14.0-18.0 [facility] Comment on above: Performed By: #### P SAFREE #### [facility] [address] [address] [address] Shabnam Rae IG # 0.04 10e3/ul Critically high 0.00-0.03 [facility] Comment on above: Performed By: #### P SAFREE #### [facility] [address] [address] [address] Shabnam Rae IG % 0.6 % Critically high 0.0-0.5 [facility] Comment on above: Performed By: #### P SAFREE #### [facility] [address] [address] [address] Shabnam Rae LYMPH # 0.9 103/ul Critically low 1.2-3.8 [facility] Comment on above: Performed By: #### P SAFREE #### [facility] [address] [address] [address] Shabnam Rae Lymphocytes/100 WBC (Bld) 13.1 % Critically low 20.5-60.0 [facility] Comment on above: Performed By: #### P SAFREE #### [facility] [address] [address] [address] Shabnam Rae MANUAL DIFF REQ NO Normal [facility] Comment on above: Performed By: #### P SAFREE #### [facility] [address] [address] [address] Shabnam Rae MCH (RBC) [Entitic mass] 29.5 pg Normal 25.9-34.0 [facility] Comment on above: Performed By: #### P SAFREE #### [facility] [address] [address] [address] Shabnam Rae MCHC (RBC) [Mass/Vol] 31.8 g/dL Normal 29.9-35.2 [facility] Comment on above: Performed By: #### P SAFREE #### [facility] [address] [address] [address] Shabnam Rae MCV (RBC) [Entitic vol] 92.9 fL Normal 80.0-94.0 [facility] Comment on above: Performed By: #### P SAFREE #### [facility] [address] [address] [address] Shabnam Rae MONO # 0.4 103/ul Normal 0.3-0.8 [facility] Comment on above: Performed By: #### P SAFREE #### [facility] [address] [address] [address] Shabnam Rae Monocytes/100 WBC (Bld) 5.4 % Normal 1.7-12.0 [facility] Comment on above: Performed By: #### P SAFREE #### [facility] [address] [address] [address] Shabnam Rae NEUT # 5.2 103/ul Normal 1.4-6.5 [facility] Comment on above: Performed By: #### P SAFREE #### [facility] [address] [address] [address] Shabnam Rae Neutrophils/100 WBC (Bld) 78.2 % Critically high 43.0-75.0 [facility] Comment on above: Performed By: #### P SAFREE #### [facility] [address] [address] [address] Shabnam Rae Platelet mean volume (Bld) [Entitic vol] 10.9 fL Normal 9.5-13.5 [facility] Comment on above: Performed By: #### P SAFREE #### [facility] [address] [address] [address] Shabnam Rae PLT 153 103/ul Normal 150-450 [facility] Comment on above: Performed By: #### P SAFREE #### [facility] [address] [address] [address] Shabnam Rae RBC 4.64 106/ul Critically low 4.70-6.10 [facility] Comment on above: Performed By: #### P SAFREE #### [facility] [address] [place] [address] Dr. Shabnam Rae WBC 6.6 103/ul Normal 4.0-11.0 [facility] Comment on above: Performed By: #### P SAFREE #### [facility] [address] [place] [address] Dr. Shabnam Rae CRPon 01-05-2022 CRP 0.9 mg/dL Normal <=1.0 [facility] Comment on above: Performed By: #### P SAFREE #### [facility] [address] [place] [address] Dr. Shabnam Rae PROF 14(COMP METB)on 022 Albumin [Mass/Vol] 3.6 g/dL Normal 3.4-5.0 [facility] Comment on above: Performed By: #### P SAFREE #### [facility] [address] [place] [address] Dr. Shabnam Rae Albumin/Globulin [Mass ratio] 1.0 {ratio} Normal [facility] Comment on above: Performed By: #### P SAFREE #### [facility] [address] [place] [address] Dr. Shabnam Rae ALP [Catalytic activity/Vol] 114 U/L Normal 46-116 [facility] Comment on above: Performed By: #### P SAFREE #### [facility] [address] [place] [address] Dr. Shabnam Rae ALT [Catalytic activity/Vol] 26 U/L Normal 16-63 [facility] Comment on above: Performed By: #### P SAFREE #### [facility] [address] [place] [address] Dr. Shabnam Rae Anion gap [Moles/Vol] 9.3 mmol/L Normal [facility] Comment on above: Performed By: #### P SAFREE #### [facility] [address] [place] [address] Dr. Shabnam Rae AST [Catalytic activity/Vol] 19 U/L Normal 15-37 [facility] Comment on above: Performed By: #### P SAFREE #### [facility] [address] [address] [address] Shabnam Rae Bilirubin [Mass/Vol] 0.5 mg/dL Normal 0.2-1.0 [facility] Comment on above: Performed By: #### P SAFREE #### [facility] [address] [address] [address] Shabnam Rae Calcium [Mass/Vol] 8.9 mg/dL Normal 8.5-10.1 [facility] Comment on above: Performed By: #### P SAFREE #### [facility] [address] [address] [address] Shabnam Rae Chloride [Moles/Vol] 106 mmol/L Normal 98-107 [facility] Comment on above: Performed By: #### P SAFREE #### [facility] [address] [address] [address] Shabnam Rae CO2 [Moles/Vol] 30.7 mmol/L Normal 21.0-32.0 [facility] Comment on above: Performed By: #### P SAFREE #### [facility] [address] [address] [address] Shabnam Rae Creatinine [Mass/Vol] 1.15 mg/dL Normal 0.70-1.30 [facility] Comment on above: Performed By: #### P SAFREE #### [facility] [address] [address] [address] Shabnam Rae EGFR-AF ANGUILLAN >60 Normal >=60 [facility] Comment on above: Performed By: #### P SAFREE #### [facility] [address] [address] [address] Shabnam Rae EGFR-NON AF ANGUILLAN >60 Normal >=60 [facility] Comment on above: Performed By: #### P SAFREE #### [facility] [address] [address] [address] Shabnam Rae Globulin (S) [Mass/Vol] 3.6 g/dL Normal [facility] Comment on above: Performed By: #### P SAFREE #### [facility] [address] [address] [address] Shabnam Rae Glucose [Mass/Vol] 117 mg/dL Critically high 74-106 [facility] Comment on above: Performed By: #### P SAFREE #### [facility] [address] [address] [address] Shabnam Rae Potassium [Moles/Vol] 4.0 mmol/L Normal 3.5-5.1 [facility] Comment on above: Performed By: #### P SAFREE #### [facility] [address] [address] [address] Shabnam Rae Protein [Mass/Vol] 7.2 g/dL Normal 6.1-8.2 [facility] Comment on above: Performed By: #### P SAFREE #### [facility] [address] [address] [address] Shabnam Rae Sodium [Moles/Vol] 142 mmol/L Normal 136-145 [facility] Comment on above: Performed By: #### P SAFREE #### [facility] [address] [address] [address] Shabnam Rae Urea nitrogen [Mass/Vol] 15.0 mg/dL Normal 7.0-18.0 [facility] Comment on above: Performed By: #### P SAFREE #### [facility] [address] [address] [address] Shabnam Rae Urea nitrogen/Creatinine [Mass ratio] 13.0 mg/mg Normal [facility] Comment on above: Performed By: #### P SAFREE #### [facility] [address] [place] [address] Dr. Shabnam Rae US SCROTUMon 01-05-2022 US [...] ALVINA CAICEDO Date: 2022-01-05 08:48 Normal [facility] CBC AUTO DIFFon 01-04-2022 BASO # 0.1 103/ul Normal 0.0-0.1 [facility] Comment on above: Performed By: #### C BC #### [facility] [address] [place] [address] Dr. Shabnam Rae Basophils/100 WBC (Bld) 0.8 % Normal 0.2-2.0 [facility] Comment on above: Performed By: #### C BC #### [facility] [address] [place] [address] Dr. Shabnam Rae EO # 0.1 103/ul Normal 0.0-0.7 [facility] Comment on above: Performed By: #### C BC #### [facility] [address] [place] [address] Dr. Shabnam Rae Eosinophils/100 WBC (Bld) 1.5 % Normal 0.9-7.0 [facility] Comment on above: Performed By: #### C BC #### [facility] [address] [place] [address] Dr. Shabnam Rae Erythrocyte distribution width (RBC) [Ratio] 12.8 % Normal 11.0-15.0 [facility] Comment on above: Performed By: #### C BC #### [facility] [address] [place] [address] Dr. Shabnam Rae Hematocrit (Bld) [Volume fraction] 40.3 % Critically low 42.0-54.0 [facility] Comment on above: Performed By: #### C BC #### [facility] [address] [place] [address] Dr. Shabnam Rae Hemoglobin (Bld) [Mass/Vol] 13.4 g/dL Critically low 14.0-18.0 [facility] Comment on above: Performed By: #### C BC #### [facility] [address] [place] [address] Dr. Shabnam Rae IG # 0.03 10e3/ul Normal 0.00-0.03 [facility] Comment on above: Performed By: #### C BC #### [facility] [address] [place] [address] Dr. Shabnam Rae IG % 0.5 % Normal 0.0-0.5 [facility] Comment on above: Performed By: #### C BC #### [facility] [address] [place] [address] Dr. Shabnam Rae LYMPH # 1.0 103/ul Critically low 1.2-3.8 [facility] Comment on above: Performed By: #### C BC #### [facility] [address] [place] [address] Dr. Shabnam Rae Lymphocytes/100 WBC (Bld) 16.4 % Critically low 20.5-60.0 [facility] Comment on above: Performed By: #### C BC #### [facility] [address] [place] [address] Dr. Shabnam Rae MANUAL DIFF REQ NO Normal [facility] Comment on above: Performed By: #### C BC #### [facility] [address] [place] [address] Dr. Shabnam Rae MCH (RBC) [Entitic mass] 29.5 pg Normal 25.9-34.0 [facility] Comment on above: Performed By: #### C BC #### [facility] [id number] Shabnam Rae MCHC (RBC) [Mass/Vol] 33.3 g/dL Normal 29.9-35.2 [facility] Comment on above: Performed By: #### C BC #### [facility] [id number] Shabnam Rae MCV (RBC) [Entitic vol] 88.8 fL Normal 80.0-94.0 [facility] Comment on above: Performed By: #### C BC #### [facility] [address] [address] [address] Shabnam Rae MONO # 0.6 103/ul Normal 0.3-0.8 [facility] Comment on above: Performed By: #### C BC #### [facility] [address] [place] [address] Dr. Shabnam Rae Monocytes/100 WBC (Bld) 9.6 % Normal 1.7-12.0 [facility] Comment on above: Performed By: #### C BC #### [facility] [address] [place] [address] Dr. Shabnam Rae NEUT # 4.4 103/ul Normal 1.4-6.5 [facility] Comment on above: Performed By: #### C BC #### [facility] [address] [place] [address] Dr. Shabnam Rae Neutrophils/100 WBC (Bld) 71.2 % Normal 43.0-75.0 [facility] Comment on above: Performed By: #### C BC #### [facility] [address] [place], [place] [id number] Dr. Shabnam Rae Platelet mean volume (Bld) [Entitic vol] 10.8 fL Normal 9.5-13.5 [facility] Comment on above: Performed By: #### C BC #### [facility] [address] [place], [place] [id number] Dr. Shabnam Rae PLT 158 103/ul Normal 150-450 [facility] Comment on above: Performed By: #### C BC #### [facility] [address] [place] [address] [address] [address] Shabnam Rae RBC 4.54 106/ul Critically low 4.70-6.10 [facility] Comment on above: Performed By: #### C BC #### [facility] [address] [place], [place] [address] Dr. Shabnam Rae WBC 6.2 103/ul Normal 4.0-11.0 [facility] Comment on above: Performed By: #### C BC #### [facility] [address] [place], [place] [address] ABD/PELV W CONon [...] MAYRA BERNAL Date: 2022-01-04 05:19 Normal [facility] CT PELVIS WO CONon CT PELVIS WO [...] MANUEL HOUGH Date: 2022-01-04 08:54 Normal [facility] CULTURE URINEon 01-04-2022 CULTURE URINE Culture Observations: No growth Normal [facility] Comment on above: Performed By: #### P [facility] #### [facility] [address] [place] [address] Dr. Shabnam Rae Covid-19 PCR (CVDTB)on 12-13 SARS-CoV-2 (COVID-19) RNA ELIJAH+probe Ql (Unsp spec) Not detected Normal NOT DETECTED [facility] Comment on above: Result Comment: When diagnostic testing is negative, the possibility of a false negative should be considered in the context of a patient's recent exposures and the presence of clinical signs and symptoms consistent with SARS-CoV-2. This test is not yet approved or cleared by the [place] Food and Drug Administration (FDA). This test was developed by [employer], [place], [place]. The performance characteristics of this test were validated by [facility]. The results are not intended to be used as the sole means for clinical diagnosis or patient management decisions. [facility] is authorized under Clinical Laboratory Improvement [...] for this test is supported by the [employer] Project [employer]er of Health and Human Service's declaration that [...] used). Performed By: #### C VDTBH #### [facility] [address] [place] [address] Dr. Shabnam Rae ER URINE PROFILEon 2 Bilirubin Ql (U) Negative Normal NEGATIVE [facility] Comment on above: Performed By: #### P SASC #### [facility] [address] [place] [address] Dr. Shabnam Rae Clarity (U) CLEAR Normal CLEAR [facility] Comment on above: Performed By: #### P SASC #### [facility] [address] [place] [address] Dr. Shabnam Rae Color (U) YELLOW Normal YELLOW [facility] Comment on above: Performed By: #### P SASC #### [facility] [address] [address] [address] Shabnam HERNANDEZ A micrscopic examination will be performed if indicated. Normal [facility] Comment on above: Performed By: #### P SASC #### [facility] [address] [address] [address] Shabnam Rae Glucose Ql (U) Negative Normal NEGATIVE [facility] Comment on above: Performed By: #### P SASC #### [facility] [address] [address] [address] Shabnam Rae Hemoglobin Ql (U) Negative Normal NEGATIVE [facility] Comment on above: Performed By: #### P SASC #### [facility] [address] [place] [address] Dr. Shabnam aRe Ketones Ql (U) Negative Normal NEGATIVE [facility] Comment on above: Performed By: #### P SASC #### [facility] [address] [address] [address] Shabnam Rae LEUKOCYTES Negative Normal NEGATIVE [facility] Comment on above: Performed By: #### P SASC #### [facility] [address] [address] [address] Shabnam Rae Nitrite Ql (U) Negative Normal NEGATIVE [facility] Comment on above: Performed By: #### P SASC #### [facility] [address] [address] [address] Shabnam Rae pH (U) 6.5 [pH] Normal 5-9 [facility] Comment on above: Performed By: #### P SASC #### [facility] [address] [address] [address] Shabnam Rae SPEC GRAVITY 1.010 Normal 1.005-<=1.025 [facility] Comment on above: Performed By: #### P SASC #### [facility] [address] [address] [address] Shabnam Rae UA PROTEIN Negative Normal NEGATIVE/ TRACE [facility] Comment on above: Performed By: #### P SASC #### [facility] [address] [address] [address] Shabnam Rae UR MICRO IND NOT INDICATED Normal [facility] Comment on above: Performed By: #### P SASC #### [facility] [address] [address] [address] Shabnam Rae Urobilinogen Qn (U) 0.2 {Sarai'U}/dL Normal 0.2 - 1. 0 [facility] Comment on above: Performed By: #### P SASC #### [facility] [address] [address] [address] Shabnam Rae LACTATE/LACTIC ACIDon 2021 Lactate [Moles/Vol] 1.0 mmol/L Normal 0.4-2.0 [facility] Comment on above: Performed By: #### P SASC #### [facility] [address] [place] [address] Dr. Shabnam Rae PROF CHEM 8 (BAS METB)on Anion gap [Moles/Vol] 10.0 mmol/L Normal [facility] Comment on above: Performed By: #### B MP #### [facility] [address] [place] [address] Dr. Shabnam Rae Calcium [Mass/Vol] 8.5 mg/dL Normal 8.5-10.1 [facility] Comment on above: Performed By: #### B MP #### [facility] [address] [place] [address] Dr. Shabnam Rae Chloride [Moles/Vol] 103 mmol/L Normal 98-107 [facility] Comment on above: Performed By: #### B MP #### [facility] [address] [place] [address] Dr. Shabnam Rae CO2 [Moles/Vol] 29.2 mmol/L Normal 21.0-32.0 [facility] Comment on above: Performed By: #### B MP #### [facility] [address] [place] [address] Dr. Shabnam Rae Creatinine [Mass/Vol] 1.25 mg/dL Normal 0.70-1.30 [facility] Comment on above: Performed By: #### B MP #### [facility] [address] [address] [address] Shabnam Rae EGFR-AF ANGUILLAN >60 Normal >=60 [facility] Comment on above: Performed By: #### B MP #### [facility] [address] [id number] Shabnam Rae EGFR-NON AF ANGUILLAN >60 Normal >=60 [facility] Comment on above: Performed By: #### B MP #### [facility] [address] [address] [address] Shabnam Rae Glucose [Mass/Vol] 132 mg/dL Critically high 74-106 [facility] Comment on above: Performed By: #### B MP #### [facility] [address] [address] [address] Shabnam Rae Potassium [Moles/Vol] 3.2 mmol/L Critically low 3.5-5.1 [facility] Comment on above: Performed By: #### B MP #### [facility] [address] [address] [address] Shabnam Rae Sodium [Moles/Vol] 139 mmol/L Normal 136-145 [facility] Comment on above: Performed By: #### B MP #### [facility] [address] [address] [address] Shabnam Rae Urea nitrogen [Mass/Vol] 19.0 mg/dL Critically high 7.0-18.0 [facility] Comment on above: Performed By: #### B MP #### [facility] [address] [address] [address] Shabnam Rae Urea nitrogen/Creatinine [Mass ratio] 15.2 mg/mg Normal [facility] Comment on above: Performed By: #### B MP #### [facility] [id number] Shabnam Rae CERVICAL SPINE 2 OR 3 [facility] 07-06-2019 CERVICAL SPINE 2 OR 3 VWS [facility] Department of Radiology [address] [place] [id number] Patient Name: MATTY GARCES : 1970 Sex: M Age: Race: White Pt. Location: Patient Status: O Ordered Date: 07/06/2019 9:10:00 AM Completed Date: 07/06/2019 09:21 AM Requesting Provider: LUCIANO VIEIRA Attending Provider: LUCIANO VIEIRA Report Copy To: VENUS MENDEZ Signs & Symptoms: M48.02 Spinal stenosis, cervical region I10 History: [place] Comments: , STAT READ , STAT READ [...] findings. Electronically signed by:Bernice Hoyt. Transcribed by: [email or web address], User Resident: RADHA CHIN Electronically Signed by: BERNICE HOYT @ 07/06/2019 08:52 PM I personally read this/these film(s) with this resident Normal [facility] Comment on above: Order Comment: , STA T READ , STAT READ , , , Ordering Provider - LUCIANO VIEIRA MD , CERVICAL SPINE 2 OR 3 [facility] 04-06-2019 CERVICAL SPINE 2 OR 3 [facility] Department of Radiology [address] [place] [id number] Patient Name: MATTY GARCES : 1970 [...] Exam: CERVICAL SPINE 2 OR 3 [facility] CERVICAL SPINE 2 OR 3 S [...] study. Electronically signed by:Bernice Hoyt. Transcribed by: [email or web address], User Resident: Electronically Signed by: BERNICE HOYT @ 04/06/2019 04:40 PM Normal [facility] Comment on above: Order Comment: AP/LA T, ODONTOID PLEASE DO SWIMMER'S VIEW FOLLOW UP HARDWARE AND ALIGNMENT, S/P ACDF, RECENT FALLS CERVICAL SPINE 2 OR 3 [facility] 02-17-2019 CERVICAL SPINE 2 OR 3 [facility] Department of Radiology [address] [place] [id number] Patient Name: MATTY GARCES : 1970 [...] findings. Electronically signed by:Bella King. Transcribed by: [email or web address], User Resident: EMILE TINAJERO Electronically Signed by: BELLA KING @ 02/20/2019 11:53 AM I personally read this/these film(s) with this resident Normal [facility] Comment on above: Order Comment: C-SPI NE 2 OR 3 VIEW POSTOP, EVALUATION HARDWARE AN ALIGNMENT BASIC METABOLIC PANELon 05- Calcium [Mass/Vol] 9.2 mg/dL Normal 8.6-10.3 [facility] Comment on above: Order Comment: No: D o not add to previous draw Performed By: #### 5 [id number] #### [facility] [address] [place], [place] [address], [place] Chloride [Moles/Vol] 101 mmol/L Normal 98-107 [facility] Comment on above: Order Comment: No: D o not add to previous draw Performed By: #### 5 0103 #### [facility] [address] [place] [address], [place] CO2 [Moles/Vol] 26 mmol/L Normal 21-31 [facility] Comment on above: Order Comment: No: D o not add to previous draw Performed By: #### 5 0103 #### [facility] [address] [place] [address], [place] Creatinine [Mass/Vol] 1.02 mg/dL Normal 0.70-1.30 [facility] Comment on above: Order Comment: No: D o not add to previous draw Performed By: #### 5 0103 #### [facility] [address] [place] [address], [place] GFR/1.73 sq M predicted among blacks MDRD (S/P/Bld) [Vol rate/Area] mL/min/{1.73_m2} Normal >60 [facility] Comment on above: Order Comment: No: D o not add to previous draw Performed By: #### 5 0103 #### [facility] [address] [place] [address], [facility] GFR/1.73 sq M predicted among non-blacks MDRD (S/P/Bld) [Vol rate/Area] mL/min/{1.73_m2} Normal >60 [facility] Comment on above: Order Comment: No: D o not add to previous draw Performed By: #### 5 0103 #### [facility] [address] [place] [address], [facility] Glucose [Mass/Vol] 124 mg/dL High 70-100 [facility] Comment on above: Order Comment: No: D o not add to previous draw Performed By: #### 5 0103 #### [facility] [address] [place] [address], [facility] Potassium [Moles/Vol] 3.9 mmol/L Normal 3.5-5.1 [facility] Comment on above: Order Comment: No: D o not add to previous draw Performed By: #### 5 0103 #### [facility] [address] [place] [address], [place] Sodium [Moles/Vol] 137 mmol/L Normal 136-145 [facility] Comment on above: Order Comment: No: D o not add to previous draw Performed By: #### 5 0103 #### [facility] [address] [place] [address], [facility] Urea nitrogen [Mass/Vol] 15 mg/dL Normal 7-25 [facility] Comment on above: Order Comment: No: D o not add to previous draw Performed By: #### 5 0103 #### [facility] [address] [place] [address], [facility] CBC COMPLETE BLOOD COUNTon 0 - Erythrocyte distribution width (RBC) [Ratio] 13.9 % Normal 11.5-15.0 [facility] Comment on above: Order Comment: No: D o not add to previous draw Performed By: #### 5 0103 #### [facility] [address] [place] [address], [facility] Hematocrit (Bld) [Volume fraction] 50.0 % Normal 39.0-50.0 [facility] Comment on above: Order Comment: No: D o not add to previous draw Performed By: #### 5 0103 #### [facility] [address] [place] [address], [facility] Hemoglobin (Bld) [Mass/Vol] 16.0 g/dL Normal 13.0-17.0 [facility] Comment on above: Order Comment: No: D o not add to previous draw Performed By: #### 5 0103 #### [facility] [address] [place] [id number], [facility] MCH (RBC) [Entitic mass] 27.5 pg Normal 27.0-33.0 [facility] Comment on above: Order Comment: No: D o not add to previous draw Performed By: #### 5 0103 #### [facility] [address] [place] [address], [facility] MCHC (RBC) [Mass/Vol] 32.0 g/dL Normal 32.0-35.0 [facility] Comment on above: Order Comment: No: D o not add to previous draw Performed By: #### 5 0103 #### [facility] [address] [place] [id number], [facility] MCV (RBC) [Entitic vol] 85.9 fL Normal 82.0-98.0 [facility] Comment on above: Order Comment: No: D o not add to previous draw Performed By: #### 5 0103 #### [facility] [address] [place] [id number], [facility] Nucleated RBC/100 WBC (Bld) [Ratio] 0 % Normal 0-0 [facility] Comment on above: Order Comment: No: D o not add to previous draw Performed By: #### 5 0103 #### [facility] [address] [place] [address], [facility] PLAT CNT 249 10*3/uL Normal 150-400 [facility] Comment on above: Order Comment: No: D o not add to previous draw Performed By: #### 5 0103 #### [facility] [address] [place] [address], [facility] RBC (Bld) [#/Vol] 5.82 10*6/uL High 4.20-5.70 [facility] Comment on above: Order Comment: No: D o not add to previous draw Performed By: #### 5 0103 #### [facility] [address] [place] [address], [facility] WBC (Bld) [#/Vol] 15.85 10*3/uL High 4.00-10.60 [facility] Comment on above: Order Comment: No: D o not add to previous draw Performed By: #### 5 0103 #### [facility] [address] [facility] [address] Operative Reporton 9 Operative Report MR#: [id number] I [facility] Pt. Name: Matty Garces Room #: [id number] Discharge Date: Birthdate: 1970 OPERATIVE REPORT DATE OF SURGERY: 01/30/2019 SURGEON: Luciano Vieira M.D. 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 POSTOPERATIVE DIAGNOSIS: Failed instrumentation at C6-7 on the right. CHIEF TECHNICIAN: ADENIKE Lugo. ANESTHESIA: Endotracheal, Hogan. PROCEDURES: Redo [...] Vieira M.D. Date Trans: 01/31/2019 02:31 Eze/sasha [id number] cc: Venus Mendez M.D. [address] [place] [address] Normal [facility] CERVICAL SPINE 2 OR 3 Son 01-30-2019 CERVICAL SPINE 2 OR 3 S [facility] Department of Radiology [address] [place] [address] Patient Name: MATTY GARCES : 1970 Sex: M Age: Race: White Pt. Location: Patient Status: O Ordered Date: 01/30/2019 7:05:00 AM Completed Date: 01/30/2019 04:12 PM Requesting Provider: LUCIANO VIEIRA Attending Provider: LUCIANO VIEIRA Report Copy To: Signs & Symptoms: C6-7 ACDF History: C6-7 ACDF Comments: C6-7 ACDF Exam: CERVICAL SPINE 2 OR 3 [facility] CERVICAL SPINE 2 OR 3 S [...] documentation Electronically signed by:Justus Montano. Transcribed by: [email or web address], User Resident: Electronically Signed by: JUSTUS MONTANO @ 01/30/2019 04:18 PM Normal [facility] Comment on above: Order Comment: C6-7 ACDF POC GLUCOSE LABon 01-30-2019 Glucose [Mass/Vol] 106 mg/dL High 70-100 [facility] Comment on above: Performed By: #### 5 0103 #### [facility] [address] [facility]. [address] *MRSA/MSSA DNA NASALon 01-23 *MRSA/MSSA DNA NASAL Clinical Report: (D ) Specimen: NASAL SWAB Collected: 01/23/2019 15:02 Status: Final Last Updated: 01/23/2019 20:14 MSSA DNA (Final) Methicillin Susceptible Staphylococcus aureus DNA Detected MRSA DNA (Final) No Methicillin Resistant Staphylococcus aureus DNA Detected Normal [facility] Comment on above: Performed By: #### 5 0103 #### [facility] [address] [facility]. [address] APTTon 01-23-2019 aPTT Coag (Bld) [Time] 35.4 s High 25.0-35.0 [facility] Comment on above: Result Comment: ALL [...] THIS PURPOSE. Performed By: #### 5 7307, 15877 #### [facility] [address] [place] [address], [facility] BASIC METABOLIC PANELon 01-11 Calcium [Mass/Vol] 9.5 mg/dL Normal 8.6-10.3 [facility] Comment on above: Performed By: #### 5 7307, 76907 #### [facility] [address] [facility] [place] [address], [facility] Chloride [Moles/Vol] 101 mmol/L Normal 98-107 [facility] Comment on above: Performed By: #### 5 7306, 63886 #### [facility] [address] [place] [address], [place] CO2 [Moles/Vol] 29 mmol/L Normal 21-31 [facility] Comment on above: Performed By: #### 5 7306, 94692 #### [facility] [address] [place] [address], [place] Creatinine [Mass/Vol] 1.08 mg/dL Normal 0.70-1.30 [facility] Comment on above: Performed By: #### 5 7306, 84900 #### [facility] [address] [place] [address], [place] GFR/1.73 sq M predicted among blacks MDRD (S/P/Bld) [Vol rate/Area] mL/min/{1.73_m2} Normal >60 [facility] Comment on above: Performed By: #### 5 7306, 29113 #### [facility] [address] [place] [address], [place] GFR/1.73 sq M predicted among non-blacks MDRD (S/P/Bld) [Vol rate/Area] mL/min/{1.73_m2} Normal >60 [facility] Comment on above: Performed By: #### 5 73, 54114 #### [facility] [address] [place] [address], [place] Glucose [Mass/Vol] 87 mg/dL Normal 70-100 [facility] Comment on above: Performed By: #### 5 7307, 01142 #### [facility] [address] [place] [address], [place] Potassium [Moles/Vol] 4.0 mmol/L Normal 3.5-5.1 [facility] Comment on above: Performed By: #### 5 73, 03438 #### [facility] [address] [facility] [place] [address], [facility] Sodium [Moles/Vol] 137 mmol/L Normal 136-145 [facility] Comment on above: Performed By: #### 5 7307, 10041 #### [facility] [address] [facility] [place] [address], [facility] Urea nitrogen [Mass/Vol] 12 mg/dL Normal 7-25 [facility] Comment on above: Performed By: #### 5 73, 06865 #### [facility] [address] [facility] [place] [address], [facility] CBC W/DIFFon 01-23-2019 ABS BASOPHILS 0.1 10*3/uL Normal 0.0-0.2 [facility] Comment on above: Performed By: #### 5 73Al, 06322 #### [facility] [address] [facility]. [address] ABS IMM GRANS 0.0 10*3/uL Normal 0.0-0.2 [facility] Comment on above: Performed By: #### 5 73, 59185 #### [facility] [address] [facility] [place] [address], [facility] ABS NEUTROPHILS 5.3 10*3/uL Normal 1.6-7.6 [facility] Comment on above: Performed By: #### 5 7307, 25688 #### [facility] [address] [facility] [place] [address], [facility] Basophils/100 WBC (Bld) 0.9 % Normal 0.0-1.0 [facility] Comment on above: Performed By: #### 5 7307, 95853 #### [facility] [address] [facility] [place] [address], [facility] Eosinophils (Bld) [#/Vol] 0.2 10*3/uL Normal 0.0-0.5 [facility] Comment on above: Performed By: #### 5 7306, 20450 #### [facility] [address] [place] [address], [facility] Eosinophils/100 WBC (Bld) 2.3 % Normal 0.0-6.0 [facility] Comment on above: Performed By: #### 7306, 92667 #### [facility] [address] [place] [id number], [facility] Erythrocyte distribution width (RBC) [Ratio] 13.8 % Normal 11.5-15.0 [facility] Comment on above: Performed By: #### 7306, 60001 #### [facility] [address] [place] [address], [facility] Hematocrit (Bld) [Volume fraction] 49.6 % Normal 39.0-50.0 [facility] Comment on above: Performed By: #### 7306, 50725 #### [facility] [address] [place] [id number], [facility] Hemoglobin (Bld) [Mass/Vol] 16.4 g/dL Normal 13.0-17.0 [facility] Comment on above: Performed By: #### 5 7306, 88632 #### [facility] [address] [place] [address], [facility] IMMATURE GRANS 0.5 % Normal 0.0-1.0 [facility] Comment on above: Performed By: #### 5 7306, 13530 #### [facility] [address] [place] [address], [facility] Lymphocytes (Bld) [#/Vol] 1.2 10*3/uL Normal 1.2-4.0 [facility] Comment on above: Performed By: #### 5 7306, 41593 #### [facility] [address] [place] [address], [place] Lymphocytes/100 WBC (Bld) 16.6 % Low 20.0-45.0 [facility] Comment on above: Performed By: #### 5 7306, 65729 #### [facility] [address] [place] [address], [facility] MCH (RBC) [Entitic mass] 27.8 pg Normal 27.0-33.0 [facility] Comment on above: Performed By: #### 5 7306, 01710 #### [facility] [address] MCHC (RBC) [Mass/Vol] 33.1 g/dL Normal 32.0-35.0 [facility] Comment on above: Performed By: #### 5 7306, 94291 #### [facility] [address] [place] [address], [facility] MCV (RBC) [Entitic vol] 84.2 fL Normal 82.0-98.0 [facility] Comment on above: Performed By: #### 5 7306, 21607 #### [facility] [address] [facility] [place] [address], [facility] Monocytes (Bld) [#/Vol] 0.7 10*3/uL Normal 0.1-1.0 [facility] Comment on above: Performed By: #### 5 7306, 36655 #### [facility] [address] [place] [address], [facility] MONOS 9.4 % Normal 5.0-12.0 [facility] Comment on above: Performed By: #### 5 7306, 94554 #### [facility] [address] [place] [address], [facility] Neutrophils/100 WBC (Bld) 70.3 % Normal 40.0-72.0 [facility] Comment on above: Performed By: #### 5 7306, 79145 #### [facility] [address] [place] [address], [facility] Nucleated RBC/100 WBC (Bld) [Ratio] 0 % Normal 0-0 [facility] Comment on above: Performed By: #### 5 7307, 04149 #### [facility] [address] [place] [address], [facility] PLAT CNT 235 10*3/uL Normal 150-400 [facility] Comment on above: Performed By: #### 5 7307, 65155 #### [facility] [address] RBC (Bld) [#/Vol] 5.89 10*6/uL High 4.20-5.70 [facility] Comment on above: Performed By: #### 5 7307, 95848 #### [facility] [address] WBC (Bld) [#/Vol] 7.48 10*3/uL Normal 4.00-10.60 [facility] Comment on above: Performed By: #### 5 7307, 02615 #### [facility] [address] PROTHROMBIN TIMEon 9 INR Coag (PPP) [Relative time] 1.12 {INR} Normal 0.91-1.16 [facility] Comment on above: Result Comment: ACCC P [...] CHEST 1995;108:231S-246S. Performed By: #### 5 7307, 90307 #### [facility] [address] PT Coag (PPP) [Time] 14.4 s Normal 12.3-14.8 [facility] Comment on above: Result Comment: ALL RESULTS MUST BE INTERPRETED WITH RESPECT TO BLOOD DRAWING ARTIFACT OR DILUTION ERROR OF ANTICOAGULANT AT THE TIME OF SAMPLING. Performed By: #### 5 7307, 15481 #### [facility] [address] TYPE AND SCREENon 01-23-2019 ABO INTERPRETATION A Normal [facility] Comment on above: Performed By: #### 5 7307, 48868 #### [facility] [address] [place] [address], [facility] RH INTERPRETATION Positive Normal The [facility] Comment on above: Performed By: #### 5 7307, 88194 #### [facility] [address] [facility]. [address] 3D CERVICAL SPINE WO CONT RASTon 01-12-2019 CT 3D CERVICAL SPINE WO CONTRAST [facility] Department of Radiology [address] [place] [id number] Patient Name: MATTY GARCSE : 1970 Sex: M Age: Race: White Pt. Location: Patient Status: D Ordered Date: 01/10/2019 2:15:00 PM Completed Date: 01/12/2019 10:32 AM Requesting Provider: LUCIANO VIEIRA Attending Provider: LUCIANO VIEIRA Report Copy To: VENUS MENDEZ Signs & Symptoms: M48.02 Spinal stenosis, cervical region I10 History: [place]thea para auth # [id number] 01/10/19-02/09/19 [id number] *er Comments: Exam: CT 3D CERVICAL SPINE [...] incomplete Electronically signed by:Ten Garland. Transcribed by: [email or web address], User Resident: Electronically Signed by: TEN GARLAND @ 01/13/2019 09:18 AM [place] [facility] CERVICAL SPINE 2 OR 3 [facility] 01-05-2019 CERVICAL SPINE 2 OR 3 [facility] Department of Radiology [address] [place] [phone] Patient Name: MATTY GARCES : 1970 Sex: M Age: Race: White Pt. Location: Patient Status: O Ordered Date: 01/05/2019 9:00:00 AM Completed Date: 01/05/2019 09:06 AM Requesting Provider: LUCIANO VIEIRA Attending Provider: LUCIANO VIEIRA Report Copy To: Signs & Symptoms: M48.02 Spinal stenosis, cervical region I10 History: [place] Comments: , , , Ordering Provider - LUCIANO VIEIRA MD , Exam: CERVICAL SPINE 2 OR 3 [facility] CERVICAL SPINE 2 OR 3 S [...] findings. Electronically signed by:Ten Garland. Transcribed by: [email or web address], User Resident: SHELLY DELA CRUZ Electronically Signed by: TEN GARLAND @ 01/05/2019 12:37 PM I personally read this/these film(s) with this resident Normal [facility] Comment on above: Order Comment: , , = ========= , Ordering Provider - LUCIANO VIEIRA MD , CERVICAL SPINE 2 OR 3 [facility] 08-30-2018 CERVICAL SPINE 2 OR 3 S [facility] Department of Radiology [address] [place] [phone] Patient Name: MATTY GARCES : 1970 Sex: M Age: Race: White Pt. Location: Patient Status: O Ordered Date: 08/30/2018 9:35:00 AM Completed Date: 08/30/2018 09:43 AM Requesting Provider: LUCIANO VIEIRA Attending Provider: LUCIANO VIEIRA Report Copy To: VENUS MENDEZ Signs & Symptoms: M50.90 Cervical disc disorder, unsp, unspecified cervical region I10 History: [place] Comments: , POST OP XRAY AP/LAT ONLY [...] findings. Electronically signed by:Bella King. Transcribed by: [email or web address], User Resident: RYAN HEAD Electronically Signed by: BELLA KING @ 08/30/2018 05:45 PM I personally read this/these film(s) with this resident Normal [facility] Comment on above: Order Comment: , POS T OP XRAY AP/LAT ONLY , POST OP XRAY AP/LAT ONLY , , , Ordering Provider - LUCIANO VIEIRA MD , Operative Reporton 8 Operative Report MR#: [id number] I [facility] Pt. Name: Matty Garces Room #: [id number] Discharge Date: Birthdate: 1970 OPERATIVE REPORT DATE OF SURGERY: 08/17/2018 SURGEON: Luciano Vieira M.D. PREOPERATIVE DIAGNOSIS: Herniated cervical disk at C6-7. POSTOPERATIVE DIAGNOSIS: Herniated cervical disk at C6-7. CHIEF TECHNICIAN: ADENIKE Larios. ANESTHESIA: Endotracheal, [place]. PROCEDURE: Anterior [...] Vieira M.D. Date Trans: 08/17/2018 11:25 P/sasha [id number] cc: Venus Mendez M.D. [address] [facility] [phone] [place] [facility] CERVICAL SPINE 2 OR 3 [facility] 08-17-2018 CERVICAL SPINE 2 OR 3 [facility] Department of Radiology [address] [place] [address] Patient Name: MATTY GARCES : 1970 Sex: M Age: Race: White Pt. Location: Patient Status: I Ordered Date: 08/17/2018 8:30:00 AM Completed Date: 08/17/2018 11:49 AM Requesting Provider: LUCIANO VIEIRA Attending Provider: LUCIANO VIEIRA Report Copy To: Signs & Symptoms: C6-7 ACDF with History: C6-7 ACDF with Comments: C6-7 ACDF with Exam: CERVICAL SPINE 2 OR 3 [facility] CERVICAL SPINE 2 OR 3 S [...] findings. Electronically signed by:Bernice Hoyt. Transcribed by: [email or web address], User Resident: EMILE TINAJERO Electronically Signed by: BERNICE HOYT @ 08/18/2018 01:06 PM I personally read this/these film(s) with this resident Normal [facility] Comment on above: Order Comment: C6-7 ACDF with POC GLUCOSE LABon 08-17-2018 Glucose [Mass/Vol] 113 mg/dL High 70-100 [facility] Comment on above: Performed By: #### 8 5499 #### [facility] [address] RBC'S 2 UNITSon 08-17-2018 CROSSMATCH INTERP 1 COMP Normal [facility] Comment on above: Performed By: #### 8 6002 #### [facility] [address] CROSSMATCH INTERP 2 COMP Normal [facility] Comment on above: Performed By: #### 8 6002 #### [facility] [address] PRODUCT CODE 1 E0336 Normal [facility] Comment on above: Performed By: #### 8 6002 #### [facility] [address] PRODUCT CODE 2 E0336 Normal [facility] Comment on above: Performed By: #### 8 6002 #### [facility] [address] PRODUCT STATUS 1 RE Normal [facility] Comment on above: Result Comment: Resu lt changed by IF on 08/20/2018 07:48. The previous value was XM. Performed By: #### 8 6002 #### [facility] [address] [place] [address], [facility] PRODUCT STATUS 2 RE Normal [facility] Comment on above: Result Comment: Resu lt changed by IF on 08/20/2018 07:48. The previous value was XM. Performed By: #### 8 6002 #### [facility] [address] [place] [address], [place] UNIT ABO 1 A Normal [facility] Comment on above: Performed By: #### 8 6002 #### [facility] [address] [place] [address], [facility] UNIT ABO 2 A Normal [facility] Comment on above: Performed By: #### 8 6002 #### [facility] [address] [place] [address], [facility] UNIT ID 1 [id number] Normal [facility] Comment on above: Performed By: #### 8 6002 #### [facility] [address] [place] [address], [facility] UNIT ID 2 [id number] Normal [facility] Comment on above: Performed By: #### 8 6002 #### [facility] [address] [place] [address], [place] UNIT RH 1 Positive Normal [facility] Comment on above: Performed By: #### 8 6002 #### [facility] [address] [place] [address], [place] UNIT RH 2 Positive Normal [facility] Comment on above: Performed By: #### 8 6002 #### [facility] [address] [facility] [place] [address], [facility] *MRSA/MSSA CULTUREon 018 *MRSA/MSSA CULTURE Clinical Report: (D) Specimen: NASAL SWAB Collected: 08/02/2018 12:37 Status: Final Last Updated: 08/03/2018 14:26 ISO (Final) No Methicillin Resistant Staphylococcus aureus Isolated (MRSA) ISO (Final) Methicillin Sensitive Staphylococcus aureus (MSSA) Isolated Normal [facility] Comment on above: Performed By: #### 3 1302 #### [facility] [address] APTTon 08-02-2018 aPTT Coag (Bld) [Time] 31.2 s Normal 25.0-35.0 [facility] Comment on above: Result Comment: ALL [...] THIS PURPOSE. Performed By: #### 5 7307, 16346 #### [facility] [address] BASIC METABOLIC PANELon 07-15 Calcium [Mass/Vol] 9.4 mg/dL Normal 8.6-10.3 [facility] Comment on above: Performed By: #### 0 0071 #### [facility] [address] [place] [address], [facility] Chloride [Moles/Vol] 103 mmol/L Normal 98-107 [facility] Comment on above: Performed By: #### 0 0071 #### [facility] [address] [place] [address], [facility] CO2 [Moles/Vol] 29 mmol/L Normal 21-31 [facility] Comment on above: Performed By: #### 0 0071 #### [facility] [address] [place] [address], [facility] Creatinine [Mass/Vol] 1.06 mg/dL Normal 0.70-1.30 [facility] Comment on above: Performed By: #### 0 0071 #### [facility] [address] [place] [address], [facility] GFR/1.73 sq M predicted among blacks MDRD (S/P/Bld) [Vol rate/Area] mL/min/{1.73_m2} Normal >60 [facility] Comment on above: Performed By: #### 0 0071 #### [facility] [address] [place] [address], [facility] GFR/1.73 sq M predicted among non-blacks MDRD (S/P/Bld) [Vol rate/Area] mL/min/{1.73_m2} Normal >60 [facility] Comment on above: Performed By: #### 0 0071 #### [facility] [address] [place] [address], [facility] Glucose [Mass/Vol] 84 mg/dL Normal 70-100 The [facility] Comment on above: Performed By: #### 0 0071 #### [facility] [address] [place] [address], [facility] Potassium [Moles/Vol] 4.0 mmol/L Normal 3.5-5.1 The [facility] Comment on above: Performed By: #### 0 0071 #### [facility] [address] [place] [address], [facility] Sodium [Moles/Vol] 140 mmol/L Normal 136-145 The [facility] Comment on above: Performed By: #### 0 0071 #### [facility] [address] [place] [address], [facility] Urea nitrogen [Mass/Vol] 20 mg/dL Normal 7-25 [facility] Comment on above: Performed By: #### 0 0071 #### [facility] [address] [place] [address], [place] CBC W/DIFFon 08-02-2018 ABS BASOPHILS 0.1 10*3/uL Normal 0.0-0.2 The [facility] Comment on above: Performed By: #### 5 0103 #### [facility] [address] [place] [address], [facility] ABS IMM GRANS 0.1 10*3/uL Normal 0.0-0.2 The [facility] Comment on above: Performed By: #### 5 0103 #### [facility] [address] [place] [address], [facility] ABS NEUTROPHILS 4.2 10*3/uL Normal 1.6-7.6 The [facility] Comment on above: Performed By: #### 5 0103 #### [facility] [address] [facility] [place] [address], [facility] Basophils/100 WBC (Bld) 1.3 % High 0.0-1.0 [facility] Comment on above: Performed By: #### 5 0103 #### [facility] [address] [place] [address], [facility] Eosinophils (Bld) [#/Vol] 0.1 10*3/uL Normal 0.0-0.5 [facility] Comment on above: Performed By: #### 5 0103 #### [facility] [address] [place] [address], [facility] Eosinophils/100 WBC (Bld) 2.0 % Normal 0.0-6.0 [facility] Comment on above: Performed By: #### 5 0103 #### [facility] [address] Erythrocyte distribution width (RBC) [Ratio] 13.6 % Normal 11.5-15.0 [facility] Comment on above: Performed By: #### 5 3 #### [facility] [address] [place] [address], [facility] Hematocrit (Bld) [Volume fraction] 44.3 % Normal 39.0-50.0 [facility] Comment on above: Performed By: #### 5 0103 #### [facility] [address] [place] [address], [facility] Hemoglobin (Bld) [Mass/Vol] 15.1 g/dL Normal 13.0-17.0 [facility] Comment on above: Performed By: #### 5 3 #### [facility] [address] [place] [place] [address], [facility] IMMATURE GRANS 1.1 % High 0.0-1.0 The [facility] Comment on above: Performed By: #### 3 #### [facility] [address] [place] [address], [facility] Lymphocytes (Bld) [#/Vol] 1.2 10*3/uL Normal 1.2-4.0 [facility] Comment on above: Performed By: #### 5 3 #### [facility] [address] Lymphocytes/100 WBC (Bld) 18.3 % Low 20.0-45.0 [facility] Comment on above: Performed By: #### 5 3 #### [facility] [address] [place] [address], [facility] MCH (RBC) [Entitic mass] 29.0 pg Normal 27.0-33.0 [facility] Comment on above: Performed By: #### 5 3 #### [facility] [address] [facility] [place] [address], [facility] MCHC (RBC) [Mass/Vol] 34.1 g/dL Normal 32.0-35.0 [facility] Comment on above: Performed By: #### 5 3 #### [facility] [address] [facility] [place] [address], [facility] MCV (RBC) [Entitic vol] 85.0 fL Normal 82.0-98.0 [facility] Comment on above: Performed By: #### 5 0103 #### [facility] [address] [place] [address], [facility] Monocytes (Bld) [#/Vol] 0.7 10*3/uL Normal 0.1-1.0 [facility] Comment on above: Performed By: #### 102 #### [facility] [address] [place] [address], [facility] MONOS 11.1 % Normal 5.0-12.0 [facility] Comment on above: Performed By: #### 102 #### [facility] [address] [facility] [place] [address], [facility] Neutrophils/100 WBC (Bld) 66.2 % Normal 40.0-72.0 [facility] Comment on above: Performed By: #### 102 #### [facility] [address] [place] [address], [facility] Nucleated RBC/100 WBC (Bld) [Ratio] 0 % Normal 0-0 [facility] Comment on above: Performed By: #### 102 #### [facility] [address] [place] [address], [facility] PLAT CNT 179 10*3/uL Normal 150-400 The [facility] Comment on above: Performed By: #### 102 #### [facility] [address] [place] [address], [facility] RBC (Bld) [#/Vol] 5.21 10*6/uL Normal 4.20-5.70 The [facility] Comment on above: Performed By: #### 102 #### [facility] [address] [place] [place] [address], [facility] WBC (Bld) [#/Vol] 6.39 10*3/uL Normal 4.00-10.60 [facility] Comment on above: Performed By: #### 3 #### [address] CERVICAL SPINE 4 OR 5 VIEWSo n 08-02-2018 CERVICAL SPINE 4 OR 5 VIEWS [facility] Department of Radiology [address] [place] [id number] Patient Name: MATTY GARCES : 1970 [...] findings. Electronically signed by:Bella King. Transcribed by: [email or web address], User Resident: EMILE TINAJERO Electronically Signed by: BELLA KING @ 08/03/2018 11:58 AM I personally read this/these film(s) with this resident Normal [facility] Comment on above: Order Comment: , PRE OP XRAY AP/LAT \EANDE\ FLEX/EX , PREOP XRAY AP/LAT \EANDE\ FLEX/EX , , , Ordering Provider - LUCIANO VIEIRA MD , PROTHROMBIN TIMEon 8 INR Coag (PPP) [Relative time] 1.15 {INR} Normal 0.91-1.16 [facility] Comment on above: Result Comment: ACCC P [...] CHEST 1995;108:231S-246S. Performed By: #### 5 7307, [id number] #### [facility] [address] [place] [address], [facility] PT Coag (PPP) [Time] 14.7 s Normal 12.3-14.8 [facility] Comment on above: Result Comment: ALL RESULTS MUST BE INTERPRETED WITH RESPECT TO BLOOD DRAWING ARTIFACT OR DILUTION ERROR OF ANTICOAGULANT AT THE TIME OF SAMPLING. Performed By: #### 5 7307, [id number] #### [facility] [address] [place] [address], [facility] TYPE AND SCREENon 08-02-2018 ABO INTERPRETATION A Normal The [facility] Comment on above: Order Comment: 2 uni ts 2 units 2 units 2 units 2 units Performed By: #### 6 2586 #### [facility] [address] [place] [address], [facility] RH INTERPRETATION Positive Normal The [facility] Comment on above: Order Comment: 2 uni ts 2 units 2 units 2 units 2 units Performed By: #### 6 2586 #### [facility] [address] [place] [id number], [facility] URINALYSIS REFLEXon 08-02-20 18 Appearance (U) CLEAR Normal CLEAR [facility] Comment on above: Performed By: #### 3 0965 #### [facility] [address] [place] [id number], [facility] Bilirubin [Mass/Vol] Negative Normal NEGATIVE [facility] Comment on above: Performed By: #### 3 0924 #### [facility] [address] [place] [address], [facility] BLOOD Negative Normal NEGATIVE [facility] Comment on above: Performed By: #### 3 0965 #### [facility] [address] [place] [address], [facility] Color (U) YELLOW Normal YELLOW [facility] Comment on above: Performed By: #### 3 0965 #### [facility] [address] [place] [address], [facility] Glucose [Mass/Vol] 150 mg/dL Abnormal NEGATIVE [facility] on above: Performed By: #### 3 0965 #### [facility] [address] [place] [address], [facility] KETONE Negative Normal NEGATIVE [facility] Comment on above: Performed By: #### 3 0965 #### [facility] [address] [place] [address], [place] Negative Normal NEGATIVE [facility] Comment on above: Performed By: #### 3 0965 #### [facility] [address] [place] [address], [facility] MICRO NOT DONE negative chemical reactions unless requested in original order Normal [facility] Comment on above: Performed By: #### 3 0965 #### [facility] [address] [place] [address], [facility] Nitrite Ql (U) Negative Normal NEGATIVE [facility] Comment on above: Performed By: #### 3 0965 #### [facility] [address] [place] [address], [facility] pH (Bld) 5.0 Normal 5.0-8.0 [facility] Comment on above: Performed By: #### 3 0965 #### [facility] [address] [place] [address], [facility] Protein (U) [Mass/Vol] Negative Normal NEGATIVE [facility] Comment on above: Performed By: #### 3 0965 #### [facility] [address] [place] [address], [facility] SPEC GRAV 1.024 High 1.015-1.020 [facility] Comment on above: Performed By: #### 3 0965 #### [facility] [place] [address], [facility] Vital Signs Date Time Vital Sign Value Performing Clinician Molly bunn 02-25-2022 10:30-0400 Blood Pressure Location Viola Lue [facility] 02-25-2022 10:30-0400 Diastolic blood pressure 107 mm[Hg] Viola Lue [facility] 02-25-2022 10:30-0400 Heart rate 74 /min Viola Lue [facility] 02-25-2022 10:30-0400 Respiratory rate 16 /min Viola Lue [facility] 02-25-2022 10:30-0400 Systolic blood pressure 157 mm[Hg] Viola Lue [facility] Encounters Encounter Date Encounter Type Care Provider Facility Start: 09-27-2023 End: 09-27-2023 ambulatory RUBÉN GEIGER Not Available Start: 08-30-2023 End: 08-31-2023 ambulatory Diallo Beauchamp [facility] [place] Start: 07-12-2023 End: 07-13-2023 ambulatory Diallo Beauchamp MD Facility: [facility] Start: 06-14-2023 End: 06-15-2023 ambulatory Diallo Beauchamp MD Facility:[facility] Start: 03-11-2023 End: 03-11-2023 ambulatory Rubén Geiger Facility:[facility] Start: 12-06-2022 End: 12-06-[address] VENUS MENDEZ . Facility: Start: 12-05-2022 Encounter for genera l adult medical examination without abnormal findings DR VENUS MENDEZ . [facility] Start: 12-01-2022 End: 12-02-[address] [...] encounter procedure Viola Grullon [facility] Start: 01-04-2022 End: 01-05-[address] VENUS MENDEZ . Facility: Start: 01-30-2019 End: 02-01-2019 Evaluation and management of inpatient PROVIDER UNKNOWN Facility:[facility] Start: 08-17-2018 End: 08-18-2018 Patient encounter procedure PROVIDER UNKNOWN Facility:[facility] Procedures Date Procedure Procedure Detail Performing Clinician Start: 12-01-[address] FRANKLIN MENDEZ . Comment on above: Performed By: #### P [facility] #### [facility] [address] [place] [address] Dr. Shabnam Rae Start: 01-30-2019 FUSION CERV JT W INT BD FUS DEV, ANT APPR A COL, OPEN [facility] Start: 01-30-2019 REMOVAL OF INT FIX F ROM CERVCAL VERTEBRA, OPEN APPROACH [facility] Start: 01-23-2019 Antibody screen PROVIDE R UNKNOWN Comment on above: Performed By: #### 5 7307, [id number] #### [facility] [address] [facility] [address] Start: 08-17-2018 ANESTH SPINE CORD SURGERY [...] units Performed By: #### 6 2586 #### [facility] [address] Colonoscopy Viola Grullon Hemorrhoids (disorder) [facility] Hernia of abdominal cavity (disorder) [facility] Tonsillectomy [facility] Payers Date Payer Category Payer Self-pay 2022 Medicaid [id number] 2022 Unknown 1970 Unknown [id number] 2.16.8 [id number] 1970 Unknown [id number] 2.16.8 [id number] 1970 Unknown [id number] 2.16.84 [id number] 1970 Unknown [id number] 2.16.84 0.1.992423.3.579.2.593 1970 Unknown [id number] 2.16.84 0.1.148838.3.579.2.593 1970 Unknown [id number] 2.16.84 0.1.911506.3.579.2.593 1970 Unknown [id number] 2.16.84 0.1.505605.3.579.2.593 1970 Unknown [id number] 2.16.84 0.1.783108.3.579.2.593 1970 Unknown [id number] 2.16. [id number] 1970 Unknown [id number] 2.16. 840.1.131903.3.579.2.196 1970 Unknown [id number] 2.16. 840.1.353940.3.579.2.196 1970 Unknown [id number] 2.16.84 0.1.267922.3.579.2.1259 1959 Unknown [id number] Unknown [id number] Unknown [id number] 2.16.8 [id number] Social History Date Type Detail Facility Tobacco smoking status No Smoking Status Entered [facility] Sex Assigned At Male [facility] Functional Status Date Assessment Result Facility 02-25-2022 Functional Status N/A [facility] Progress note 06-09-2023 Note Date & Type Note Facility 06-09-2023 Note [facility] Continue GDMT- Diuretic therapy Monitor daily weights, I&O, fluid restriction 1.5-2L/day, renal function and electrolytes- [facility] Clinical Note 03-26-2022 Note Date & Type [...] authenticated by: ALVINA CAICEDO Date: 2022-03-26 10:47 [facility] Discharge instructions 02-25-2022 Note Date & Type [...] Watch the hydrocele for any changes. Take wonk-ymm-llmtrmk and prescription medicines only as told by [...] 02/17/2011 Document Revised: 09/10/2018 Document Reviewed: 09/10/2018 [employer] Patient Education 2020 [email or web address]. Follow Up Care 01/28/2022 10:36:35 With:Mitchel DELGADO, [place] Gregorio, U[place] Address: When: Unknown [facility] Evaluation + Plan note Note Date & Type Note Facility Evaluation + Plan note No data available for this section [facility] Progress note Note Date & Type Note Facility Progress note No data available for this section [facility] Summary Purpose Family History No Family History [...] Hospital Course Note MR#: [id number] [facility] Pt. Name: Matty Garces Admitted: 01/30/2019 Discharged: [...] section and content) DATE CREATED AUTHOR 07/19/2019 [facility] DATE CREATED AUTHOR AUTHOR'S ORGANIZ ATION 02/27/[address] [facility] DATE CREATED AUTHOR AUTHOR'S ORGANIZ ATION 12/08/2022 [facility] DATE CREATED AUTHOR AUTHOR'S ORGANIZ ATION 03/17/2023 [facility] DATE CREATED AUTHOR AUTHOR'S ORGANIZ ATION 06/17/2023 [facility] DATE CREATED AUTHOR AUTHOR'S ORGANIZ ATION 09/03/2023 [facility] DATE CREATED AUTHOR AUTHOR'S ORGANIZ ATION 09/27/2023 [facility] EPIC Care Team (unrecognized sect ion and content) Personnel Name: Venus Mendez MD Address: [address] [place] [address] FOR RECORDS PERTAINING TO PATIENTS WHO ARE [...] BE BASED ON THE PRIMARY CLINICAL RECORDS. [facility] [employer] provides no warranty or guarantee of the accuracy or completeness of information in this document.
--- NOTE | 2023-11-17 10:58 | XR_ITS ---
The [address] [address] Patient Name: MATTY WADE MRN: [id number] date: 1970 Sex: M Assigned Patient Location: [facility] Current Patient Location: [facility] Accession/Order Number: [id number] Exam Date: 11/17/2023 11:05 Report Date: 11/17/2023 12:00 At the request of: FRANK ZIMMERMAN Procedure: XR knee UBALDO 4V EXAMINATION: XR knee UBALDO 4V HISTORY: Bilateral Knee Pain, Osteoarthritis COMPARISON: No relevant comparison available. FINDINGS: RIGHT FINDINGS: BONES: No acute fracture or dislocation. Enthesopathic spurring of the calcaneus and anterior tibial tubercle. No significant joint space narrowing or marginal osteophyte formation SOFT TISSUES: Negative. No visible soft tissue swelling. OTHER: Negative. LEFT FINDINGS: BONES: No acute fracture or dislocation. Enthesopathic spurring of the calcaneus and anterior tibial tubercle. No significant joint space narrowing or marginal osteophyte formation SOFT TISSUES: Negative. No visible soft tissue swelling. OTHER: Negative. XR/XR knee UBALDO 4V IMPRESSION: RIGHT CONCLUSION: No acute abnormality LEFT CONCLUSION: No acute abnormality Electronically authenticated by: ALVINA CAICEDO Date: 11/17/2023 12:00
== END 2023-11-17 10:47 | disposition home or self-care (01) ==
LOC: RAD 10:47
PROVIDERS: PCP Family Medicine; Visit Provider Nurse Practitioner
DX: M25.561 Pain in right knee (principal); M25.562 Pain in left knee
CPT/HCPCS: 73564

== ENCOUNTER 2023-11-29 12:00 | Outpatient (OUT) | payer MEDICAID, SELFPAY ==
--- OUTSIDE RECORDS SUMMARY | 2023-11-29 12:16 | XMS_ITS | CCD ---
Author Name Unknown Address [address] [place] [address] Organization [facility] Care Team Providers Care Air Bag Stripper Name Role Phone UNKNOWN, PROVIDER Admitting Unavailable UNKNOWN, PROVIDER Attending Unavailable VENUS MENDEZ Referring Unavailable VENUS MENDEZ Primary Care Unavailable CT Procedure Practitioner Unavailab le UNKNOWN, PROVIDER Surgeon Unavailable CT Procedure Practitioner Unavailab le SANDRA BILL Surgeon Unavailable UNKNOWN, PROVIDER Admitting Unavailable UNKNOWN, PROVIDER Attending Unavailable VENUS MENDEZ Referring Unavailable VENUS MENDEZ Primary Care Unavailable CT Procedure Practitioner Unavailab le UNKNOWN, PROVIDER Surgeon Unavailable Venus Mendez Primary Care Physician [phone] DONOVAN Admitting Unavailable HOY [...] AGA, DR JEWELL Bloom Attending Unavailabl e REINECK, DR JEWELL Bloom Consulting Unavailabl e WEST, [...] WEST, DR ALVINA Martinez Consulting Unavailable MORENA ., DR ROBERTS Consulting Unavailable MARNIE RICHEY Consulting Unavailable MANUEL HOUGH Consulting Unavailable MAYRA BERNAL Consulting Unavailable Rubén Geiger Attending Unavailable Rubén Geiger. Admitting Unavailable Venus Mendez Primary Care Unavailable RUBÉN GEIGER Attending Unavailable Gishruthi DELGADO, Diallo Berkowitz Attending Unavailable Gishruthi DELGADO, Diallo Berkowitz Attending Unavailable Quynh DELGADO, Diallo Berkowitz Attending Unavailable Quynh DELGADO, Diallo Berkowitz Attending Unavailable Allergies Allergy Classification Reported Allergen(s) Allergy Type Date of Onset Reaction(s) Facility (1 source) Aspartame Drug Allergy 08-17-20 [facility] Repository (1 source) avoid; Translations: [Unknown] Propensity to adverse reactions (disorder) 08-17-20 [facility] Rep[facility] (1 source) vitamin B12; Translations: [cyanocobalamin] Drug Allergy Unknown (qualifier value) [facility] (1 source) Acetaminophen / HYDROcodone Drug Allergy [facility] (1 source) Corticosteroids Drug allergy (disorder) [facility] (1 source) fentaNYL Drug Allergy [facility] (1 source) Misc-Food; Translations: [Misc-Food] Food allergy (disorder) [facility] (1 source) Corticosteroids Drug allergy (disorder) 05-14-20 [facility] Repository Medications Current Medications Medication Drug Class(es) [...] Onset: 3 Chronic Other aftercare (1 source) 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; Translations: [[facility] 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 ASPIRIN] Onset: 3 Episodic Other aftercare (1 source) Other longterm (current) drug therapy; Translations: [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] Onset: 3 Episodic Other [...] spine 5V*on 02-12 XR cervical spine 5V* [facility] Main [address] [address] XRay Report Signed Patient: Matty Garces MR#: [id number] 97 : 1970 Acct:[id number] Age/Sex: 52 / M ADM Date: 03/11/23 Loc: ICXD Room: Type: [facility] Attending Dr: Rubén Geiger MD Copies to: Rubén Geiger MD Ordering Provider: Rubén Gieger MD Date of Service: 03/11/23 XR/XR cervical [...] Crow Contreras M.D.03/11/2023 3:48 PM Dictation Location: [place] [address] Transcribed By: [facility] 03/11/23 1548 Dictated By: Crow Contreras DO 03/11/23 1544 Signed By: 03/11/23 [address] [facility] [address] CSPINE WO CONon CT CSPINE WO [...] ANGEL SAID Date: 2022-12-06 06:37 Normal [facility] CT FACIAL BONES WO CONon CT FACIAL [...] ANGEL SAID Date: 2022-12-06 06:41 Normal [facility] CT HEAD WO CONon 12-06-2022 CT HEAD [...] ANGEL SAID Date: 2022-12-06 06:39 Normal [facility] XR ELBOW RT MIN 3 VIEWSon XR ELBOW RT MIN 3 VIEWS Exam: Radiographs: XR ELBOW RT MIN 3 VIEWS Reason for exam: Elbow pain Comparison: None IMPRESSION: Right elbow degenerative changes. Olecranon spur. Remainder of the right elbow is unremarkable. Electronically authenticated by: MICHAEL CASANOVA Date: 2022-12-06 07:22 Normal [facility] XR FOREARM RT 2Von 3 XR FOREARM RT 2V Exam: Radiographs: XR FOREARM RT 2V Reason for exam: Forearm pain Comparison: None IMPRESSION: Mild degenerative changes in the right elbow and wrist. Right forearm is otherwise unremarkable. Electronically authenticated by: MICHAEL CASANOVA Date: 2022-12-06 08:07 Normal [facility] PSA, FREE AND TOTAL RATIOon 12-03-2022 % Free PSA 9.0 % Normal [facility] Comment on above: Result Comment: The table [...] men. Performed By: #### P SAFREE #### [facility] [address] [place] [address] [address] Shabnam Rae Prostate specific Ag [Mass/Vol] 5.9 ng/mL Critically high 0.0-4.0 [facility] Comment on above: Result Comment: Tanja ayala ECLIA methodology. . According to the [place] [employer], Serum PSA should decrease and [...] disease. Performed By: #### P SAFREE #### [facility] [address] [place], [place] [address] Dr. Shabnam Rae PSA, Free 0.53 ng/mL Normal N/A [facility] Comment on above: Result Comment: Roch lucy ECLIA methodology. Performed By: #### P SAFREE #### [facility] [address] [place] [address] [address] Shabnam Rae INSULINon 12-02-2022 Insulin 20.2 uIU/mL Normal 2.6-24.9 [facility] Comment on above: Performed By: #### P SASC #### [facility] [address] [place] [address] Dr. Shabnam Rae TESTOSTERONE, TOTALon 2022 Testosterone [Mass/Vol] 256 ng/dL Critically low 264-916 [facility] Comment on above: Result Comment: Adul t male reference interval is based on a population of healthy nonobese males (BMI <30) between 19 and 39 years old. Dima, et.al. JCEM 2017,102;5939-6541. PMID: 35655583. Performed By: #### P SASC #### [facility] [address] [place] [address] Dr. Shabnam Rae CBC AUTO DIFFon 12-01-2022 BASO # 0.1 103/ul Normal 0.0-0.1 [facility] Comment on above: Performed By: #### P SASC #### [facility] [address] [place] [address] Dr. Shabnam Rae Basophils/100 WBC (Bld) 1.0 % Normal 0.2-2.0 [facility] Comment on above: Performed By: #### P SASC #### [facility] [address] [place] [address] Dr. Shabnam Rae EO # 0.1 103/ul Normal 0.0-0.7 [facility] Comment on above: Performed By: #### P SASC #### [facility] [address] [place] [address] Dr. Shabnam Rae Eosinophils/100 WBC (Bld) 1.8 % Normal 0.9-7.0 [facility] Comment on above: Performed By: #### P SASC #### [facility] [address] [place] [address] Dr. Shabnam Rae Erythrocyte distribution width (RBC) [Ratio] 14.8 % Normal 11.0-15.0 [facility] Comment on above: Performed By: #### P SASC #### [facility] [address] [place] [address] [address] Shabnam Rae Hematocrit (Bld) [Volume fraction] 49.9 % Normal 42.0-54.0 [facility] Comment on above: Performed By: #### P SASC #### [facility] [address] [place] [address] [address] Shabnam Rae Hemoglobin (Bld) [Mass/Vol] 16.0 g/dL Normal 14.0-18.0 [facility] Comment on above: Performed By: #### P SASC #### [facility] [address] [place] [address] [address] Shabnam Rae IG # 0.04 10e3/ul Critically high 0.00-0.03 [facility] Comment on above: Performed By: #### P SASC #### [facility] [address] [place] [address] [address] Shabnam Rae IG % 0.6 % Critically high 0.0-0.5 [facility] Comment on above: Performed By: #### P SASC #### [facility] [address] [place] [address] [address] Shabnam Rae LYMPH # 1.0 103/ul Critically low 1.2-3.8 [facility] Comment on above: Performed By: #### P SASC #### [facility] [address] [place] [address] [address] Shabnam Rae Lymphocytes/100 WBC (Bld) 16.2 % Critically low 20.5-60.0 [facility] Comment on above: Performed By: #### P SASC #### [facility] [address] [place] [address] [address] Shabnam Rae MANUAL DIFF REQ NO Normal [facility] Comment on above: Performed By: #### P SASC #### [facility] [address] [place] [address] [address] Shabnam Rae MCH (RBC) [Entitic mass] 27.7 pg Normal 25.9-34.0 [facility] Comment on above: Performed By: #### P SASC #### [facility] [address] [place] [address] [address] Shabnam Rae MCHC (RBC) [Mass/Vol] 32.1 g/dL Normal 29.9-35.2 [facility] Comment on above: Performed By: #### P SASC #### [facility] [address] [place] [address] [address] Shabnam Rae MCV (RBC) [Entitic vol] 86.3 fL Normal 80.0-94.0 [facility] Comment on above: Performed By: #### P SASC #### [facility] [address] [place] [address] [address] Shabnam Rae MONO # 0.5 103/ul Normal 0.3-0.8 [facility] Comment on above: Performed By: #### P SASC #### [facility] [address] [place] [address] Dr. Shabnam Rae Monocytes/100 WBC (Bld) 7.6 % Normal 1.7-12.0 [facility] Comment on above: Performed By: #### P SASC #### [facility] [address] [place] [address] [address] Shabnam Rae NEUT # 4.6 103/ul Normal 1.4-6.5 [facility] Comment on above: Performed By: #### P SASC #### [facility] [address] [place] [address] Dr. Shabnam Rae Neutrophils/100 WBC (Bld) 72.8 % Normal 43.0-75.0 [facility] Comment on above: Performed By: #### P SASC #### [facility] [address] [place] [address] [address] Shabnam Rae Platelet mean volume (Bld) [Entitic vol] 9.8 fL Normal 9.5-13.5 [facility] Comment on above: Performed By: #### P SASC #### [facility] [address] [place] [address] Dr. Shabnam Rae PLT 203 103/ul Normal 150-450 [facility] Comment on above: Performed By: #### P SASC #### [facility] [address] [place] [address] Dr. Shabnam Rae RBC 5.78 106/ul Normal 4.70-6.10 [facility] Comment on above: Performed By: #### P SASC #### [facility] [address] [place] [address] [address] Shabnam Rae WBC 6.3 103/ul Normal 4.0-11.0 [facility] Comment on above: Performed By: #### P SASC #### [facility] [address] [place] [address] Dr. Shabnam Rae FREE THYROXINE INDEX T7on FTI 2.05 Normal 1.30-4.50 [facility] Comment on above: Performed By: #### T SH, CMP, LIPID, T7, URIC #### [facility] [address] [place] [address] Dr. Shabnam Rae T3U 33.0 % Normal 33.0-40.0 [facility] Comment on above: Performed By: #### T SH, CMP, LIPID, T7, URIC #### [facility] [address] [place] [address] [address] Shabnam Rae T4 [Mass/Vol] 6.20 ug/dL Normal 4.50-12.10 [facility] Comment on above: Performed By: #### T SH, CMP, LIPID, T7, URIC #### [facility] [address] [place] [address] Dr. Shabnam Rae GLYCOHEMOGLOBIN A1Con 2022 ADA RECOMMENDATION SEE BELOW Normal [facility] Comment on above: Result Comment: ADA RECOMMENDED LIMIT 4.0 - 6.0 ADA THERAPEUTIC TARGET < 7.0 ACTION SUGGESTED > 7.0 Performed By: #### P SASC #### [facility] [address] [place] [address] Dr. Shabnam Rae Glucose [Mass/Vol] 114 mg/dL Normal [facility] Comment on above: Performed By: #### P SASC #### [facility] [address] [place] [address] Dr. Shabnam Rae HbA1c (Bld) [Mass fraction] 5.6 % Normal 4.5-6.2 [facility] Comment on above: Performed By: #### P SASC #### [facility] [address] [place] [address] Dr. Shabnam Rae LIPID PROFILEon 12-01-2022 CHOL-HDL RATIO NORM SEE BELOW Normal [facility] Comment on above: Result Comment: 3.3 - 4.4 LOW RISK 4.4 - 7.1 AVERAGE RISK 7.1 - 11.0 MODERATE RISK >11.0 HIGH RISK Performed By: #### T SH, CMP, LIPID, T7, URIC #### [facility] [address] [place] [address] Dr. Shabnam Rae Cholesterol [Mass/Vol] 176 mg/dL Normal <=200 [facility] Comment on above: Performed By: #### T SH, CMP, LIPID, T7, URIC #### [facility] [address] [place] [address] Dr. Shabnam Rae Cholesterol in HDL [Mass/Vol] 48 mg/dL Normal 40-60 [facility] Comment on above: Performed By: #### T SH, CMP, LIPID, T7, URIC #### [facility] [address] [place] [address] Dr. Shabnam Rae Cholesterol in LDL [Mass/Vol] 108.2 mg/dL Normal [facility] Comment on above: Performed By: #### T SH, CMP, LIPID, T7, URIC #### [facility] [address] [place] [address] Dr. Shabnam Rae Cholesterol.total/Ch olesterol in HDL [Mass ratio] 3.7 {ratio} Normal [facility] Comment on above: Performed By: #### T SH, CMP, LIPID, T7, URIC #### [facility] [address] [place] [address] Dr. Shabnam Rae HDL NORMAL > or = 60 mg/dl - LOW CARDIOVASCULAR RISK <40 mg/dl - HIGH CARDIOVASCULAR RISK Normal [facility] Comment on above: Performed By: #### T SH, CMP, LIPID, T7, URIC #### [facility] [address] [address] [address] Shabnam Rae LDL CALC NORMAL SEE BELOW Normal [facility] Comment on above: Result Comment: <100 mg/dl OPTIMAL 100 - 129 mg/dl NEAR OR ABOVE OPTIMAL 130 - 159 mg/dl BORDERLINE HIGH 160 - 189 mg/dl HIGH >190 mg/dl VERY HIGH Performed By: #### T SH, CMP, LIPID, T7, URIC #### [facility] [address] [address] [address] Shabnam Rae Triglyceride [Mass/Vol] 99 mg/dL Normal <=150 [facility] Comment on above: Performed By: #### T SH, CMP, LIPID, T7, URIC #### [facility] [address] [address] [address] Shabnam Rae VLDL CALC 19.8 mg/dL Normal [facility] Comment on above: Performed By: #### T SH, CMP, LIPID, T7, URIC #### [facility] [address] [address] [address] Shabnam Rae PROF 14(COMP METB)on 023 Albumin [Mass/Vol] 4.1 g/dL Normal 3.4-5.0 [facility] Comment on above: Performed By: #### T SH, CMP, LIPID, T7, URIC #### [facility] [address] [address] [address] Shabnam Rae Albumin/Globulin [Mass ratio] 1.1 {ratio} Normal [facility] Comment on above: Performed By: #### T SH, CMP, LIPID, T7, URIC #### [facility] [address] [address] [address] Shabnam Rae ALP [Catalytic activity/Vol] 101 U/L Normal 46-116 [facility] Comment on above: Performed By: #### T SH, CMP, LIPID, T7, URIC #### [facility] [address] [place] [address] [address] Shabnam Rae ALT [Catalytic activity/Vol] 26 U/L Normal 16-63 [facility] Comment on above: Performed By: #### T SH, CMP, LIPID, T7, URIC #### [facility] [address] [address] [address] Shabnam Rae Anion gap [Moles/Vol] 10.1 mmol/L Normal [facility] Comment on above: Performed By: #### T SH, CMP, LIPID, T7, URIC #### [facility] [address] [place] [address] [address] Shabnam Rae AST [Catalytic activity/Vol] 19 U/L Normal 15-37 [facility] Comment on above: Performed By: #### T SH, CMP, LIPID, T7, URIC #### [facility] [address] [place] [address] Dr. Shabnam Rae Bilirubin [Mass/Vol] 0.8 mg/dL Normal 0.2-1.0 [facility] Comment on above: Performed By: #### T SH, CMP, LIPID, T7, URIC #### [facility] [address] [place] [address] Dr. Shabnam Rae Calcium [Mass/Vol] 9.5 mg/dL Normal 8.5-10.1 [facility] Comment on above: Performed By: #### T SH, CMP, LIPID, T7, URIC #### [facility] [address] [place] [address] Dr. Shabnam Rae Chloride [Moles/Vol] 102 mmol/L Normal 98-107 [facility] Comment on above: Performed By: #### T SH, CMP, LIPID, T7, URIC #### [facility] [address] [place] [address] Dr. Shabnam Rae CO2 [Moles/Vol] 32.4 mmol/L Critically high 21.0-32.0 [facility] Comment on above: Performed By: #### T SH, CMP, LIPID, T7, URIC #### [facility] [address] [place] [address] Dr. Shabnam Rae Creatinine [Mass/Vol] 1.00 mg/dL Normal 0.70-1.30 [facility] Comment on above: Performed By: #### T SH, CMP, LIPID, T7, URIC #### [facility] [address] [address] [address] Shabnam Rae EGFR-AF TURKS AND CAICOS ISLANDER >60 Normal >=60 [facility] Comment on above: Performed By: #### T SH, CMP, LIPID, T7, URIC #### [facility] [address] [address] [address] Shabnam Rae EGFR-NON AF TURKS AND CAICOS ISLANDER >60 Normal >=60 [facility] Comment on above: Performed By: #### T SH, CMP, LIPID, T7, URIC #### [facility] [address] [address] [address] Shabnam Rae Globulin (S) [Mass/Vol] 3.8 g/dL Normal [facility] Comment on above: Performed By: #### T SH, CMP, LIPID, T7, URIC #### [facility] [address] [address] [address] Shabnam Rae Glucose [Mass/Vol] 94 mg/dL Normal 74-106 [facility] Comment on above: Performed By: #### T SH, CMP, LIPID, T7, URIC #### [facility] [address] [address] [address] Shabnam Rae Potassium [Moles/Vol] 3.5 mmol/L Normal 3.5-5.1 [facility] Comment on above: Performed By: #### T SH, CMP, LIPID, T7, URIC #### [facility] [address] [address] [address] Shabnam Rae Protein [Mass/Vol] 7.9 g/dL Normal 6.4-8.2 [facility] Comment on above: Performed By: #### T SH, CMP, LIPID, T7, URIC #### [facility] [address] [address] [address] Shabnam Rae Sodium [Moles/Vol] 141 mmol/L Normal 136-145 [facility] Comment on above: Performed By: #### T SH, CMP, LIPID, T7, URIC #### [facility] [address] [address] [address] Shabnam Rae Urea nitrogen [Mass/Vol] 15.0 mg/dL Normal 7.0-18.0 [facility] Comment on above: Performed By: #### T SH, CMP, LIPID, T7, URIC #### [facility] [address] [address] [address] Shabnam Rae Urea nitrogen/Creatinine [Mass ratio] 15.0 mg/mg Normal [facility] Comment on above: Performed By: #### T SH, CMP, LIPID, T7, URIC #### [facility] [address] [address] [address] Shabnam Rae TSHon 12-01-2022 TSH 1.504 uIU/mL Normal 0.358-3.740 [facility] Comment on above: Performed By: #### T SH, CMP, LIPID, T7, URIC #### [facility] [address] [address] [address] Shabnam Rae URIC ACID SERUMon 12-01-2022 Urate [Mass/Vol] 6.9 mg/dL Normal 3.5-7.2 [facility] Comment on above: Performed By: #### T SH, CMP, LIPID, T7, URIC #### [facility] [address] [address] [address] Shabnam Rae TESTOSTERONE, TOTALon 2021 Testosterone [Mass/Vol] 244 ng/dL Critically low 264-916 [facility] Comment on above: Result Comment: Adul t male reference interval is based on a population of healthy nonobese males (BMI <30) between 19 and 39 years old. Dima, et.al. JCEM 2017,102;5080-5380. PMID: [id number]. Performed By: #### P SAFREE #### [facility] [address] [place] [address] Dr. Shabnam Rae TESTOSTERONE, FREE,DIRECT, T OTALon 03-16-2022 Free Testosterone(Direct) 2.1 pg/mL Critically low 7.2-24.0 [facility] Comment on above: Result Comment: Perf ormed at: BN Performed By: #### C VDTBH #### [facility] [address] [place] [address] Dr. Shabnam Rae Testosterone [Mass/Vol] 252 ng/dL Critically low 264-916 [facility] Comment on above: Result Comment: Adul t male reference interval is based on a population of healthy nonobese males (BMI <30) between 19 and 39 years old. adia Ch.al. JCEM 2017,102;3406-5439. PMID: 93158631. Performed at: CB Performed By: #### [facility] #### [facility] [address] [address] [address] Shabnam Rae Formson 02-26-2022 Forms [id number] 7#1.00CD:127 Normal [facility] Screenson 02-26-2022 Screens [id number] 7#1.00CD:127 Normal [facility] Screens [id number] #1.00CD:127 Normal [facility] Urology Office/Clinic Noteon 02-26-2022 Urology Office/Clinic [...] qualifying data (more content not included)... Normal [facility] Comment on above: Result Comment: Elec tronically Signed By: Viola Grullon MD\.br\Date and Time Signed: 02/26/22 00:20 EDT\.br\Electronically Co-Signed By: Helen Leung\.br\Date and Time Co-Signed: 02/25/22 11:16 EDT Ambulatory Visit Summaryon 0 02-25-2022 Ambulatory Visit Summary MATTY GARCES :1970 Visit Date:02/25/2022 Ambulatory Visit Instructions Your Diagnosis Hydrocele Varicocele BPH without urinary obstruction Tests Performed Urnls Dip Stick Auto w/o Microscopy POC 16359 Your Care Team Attending Physician - Viola Grullon MD Primary Care Physician - Mil DELGADO, Venus Procedures Performed Colonoscopy, Hemorrhoid, Hernia, Tonsillectomy. Discharge Vitals Heart Rate (Peripheral) 74 Respiratory Rate 16 Blood Pressure 157/107 Height 189.6 cm Height 189.6 cm Weight 119.9 kg Weight 119.9 kg BMI 33.35 What to do next You Need to Schedule the Following Appointments Follow Up with Mitchel DELGADO, Viola Cohn, URL, URO When: Where: Test Results Urnls Dip Stick Auto w/o Microscopy POC 01201 (02/25/2022) Bilirubin Urine Dipstick - Negative Blood Urine Dipstick - Negative Glucose Urine Dipstick - Negative Ketones Urine Dipstick - Negative Leukocytes Urine Dipstick - Negative Nitrite Urine Dipstick - Negative Protein Urine Dipstick - Negative Specific [place] Urine Dipstick - >=1.030 Urine Appearance Urine [...] the hydrocele for any changes. ? Take bzmi-szn-citwufs and prescription medicines only as told by [...] intended t (more content not included)... Normal [facility] Patient Educationon 02-26-20 Patient Education Urology [...] the hydrocele for any changes. ? Take wzdy-qxv-vfonalv and prescription medicines only as told by [...] Reviewed: 09/10/2018 Elsevier Patient Education ? 2019 [employer] [facility] ED Note-Physicianon 05-24-20 22 ED Note-Physician [id number]#1.00CD:127 Normal [facility] RAD - Ultrasound Reporton RAD - Ultrasound Report [id number] #1.00CD:127 Normal [facility] RAD - CT Reporton 02-02-2022 RAD - CT Report [id number] 55#1.00CD:127 Normal [facility] RAD - CT Report [id number] 75#1.00CD:127 Normal [facility] CBC AUTO DIFFon 01-05-2022 BASO # 0.0 103/ul Normal 0.0-0.1 [facility] Comment on above: Performed By: #### P SAFREE #### [facility] [address] [address] [address] Shabnma Rae Basophils/100 WBC (Bld) 0.6 % Normal 0.2-2.0 [facility] Comment on above: Performed By: #### P SAFREE #### [facility] [address] [address] [address] Shabnam Rae EO # 0.1 103/ul Normal 0.0-0.7 [facility] Comment on above: Performed By: #### P SAFREE #### [facility] [address] [address] [address] Shabnam Rae Eosinophils/100 WBC (Bld) 2.1 % Normal 0.9-7.0 [facility] Comment on above: Performed By: #### P SAFREE #### [facility] [address] [address] [address] Shabnam Rae Erythrocyte distribution width (RBC) [Ratio] 13.1 % Normal 11.0-15.0 [facility] Comment on above: Performed By: #### P SAFREE #### [facility] [address] [place] [address] Dr. Shabnam Rae Hematocrit (Bld) [Volume fraction] 43.1 % Normal 42.0-54.0 [facility] Comment on above: Performed By: #### P SAFREE #### [facility] [address] [address] [address] Shabnam Rae Hemoglobin (Bld) [Mass/Vol] 13.7 g/dL Critically low 14.0-18.0 [facility] Comment on above: Performed By: #### P SAFREE #### [facility] [address] [place] [address] Dr. Shabnam Rae IG # 0.04 10e3/ul Critically high 0.00-0.03 [facility] Comment on above: Performed By: #### P SAFREE #### [facility] [address] [place] [address] Dr. Shabnam Rae IG % 0.6 % Critically high 0.0-0.5 [facility] Comment on above: Performed By: #### P SAFREE #### [facility] [address] [place] [address] Dr. Shabnam Rae LYMPH # 0.9 103/ul Critically low 1.2-3.8 [facility] Comment on above: Performed By: #### P SAFREE #### [facility] [address] [place] [address] Dr. Shabnam Rae Lymphocytes/100 WBC (Bld) 13.1 % Critically low 20.5-60.0 [facility] Comment on above: Performed By: #### P SAFREE #### [facility] [address] [place] [address] Dr. Shabnam Rae MANUAL DIFF REQ NO Normal [facility] Comment on above: Performed By: #### P SAFREE #### [facility] [address] [address] [address] Shabnam Rae MCH (RBC) [Entitic mass] 29.5 pg Normal 25.9-34.0 [facility] Comment on above: Performed By: #### P SAFREE #### [facility] [address] [place] [address] Dr. Shabnam Rae MCHC (RBC) [Mass/Vol] 31.8 g/dL Normal 29.9-35.2 [facility] Comment on above: Performed By: #### P SAFREE #### [facility] [address] [place] [address] Dr. Shabnam Rae MCV (RBC) [Entitic vol] 92.9 fL Normal 80.0-94.0 [facility] Comment on above: Performed By: #### P SAFREE #### [facility] [address] [place] [address] Dr. Shabnam Rae MONO # 0.4 103/ul Normal 0.3-0.8 [facility] Comment on above: Performed By: #### P SAFREE #### [facility] [address] [place] [address] Dr. Shabnam Rae Monocytes/100 WBC (Bld) 5.4 % Normal 1.7-12.0 [facility] Comment on above: Performed By: #### P SAFREE #### [facility] [address] [place] [address] Dr. Shabnam Rae NEUT # 5.2 103/ul Normal 1.4-6.5 [facility] Comment on above: Performed By: #### P SAFREE #### [facility] [address] [place] [address] Dr. Shabnam Rae Neutrophils/100 WBC (Bld) 78.2 % Critically high 43.0-75.0 [facility] Comment on above: Performed By: #### P SAFREE #### [facility] [address] [place] [address] Dr. Shabnam Rae Platelet mean volume (Bld) [Entitic vol] 10.9 fL Normal 9.5-13.5 [facility] Comment on above: Performed By: #### P SAFREE #### [facility] [address] [place] [address] Dr. Shabnam Rae PLT 153 103/ul Normal 150-450 [facility] Comment on above: Performed By: #### P SAFREE #### [facility] [address] [place] [address] Dr. Shabnam Rae RBC 4.64 106/ul Critically low 4.70-6.10 [facility] Comment on above: Performed By: #### P SAFREE #### [facility] [address] [address] [address] Shabnam Rae WBC 6.6 103/ul Normal 4.0-11.0 [facility] Comment on above: Performed By: #### P SAFREE #### [facility] [address] [address] [address] Shabnam Rae CRPon 01-05-2022 CRP 0.9 mg/dL Normal <=1.0 [facility] Comment on above: Performed By: #### P SAFREE #### [facility] [address] [address] [address] Shabnam Rae PROF 14(COMP METB)on 022 Albumin [Mass/Vol] 3.6 g/dL Normal 3.4-5.0 [facility] Comment on above: Performed By: #### P SAFREE #### [facility] [address] [address] [address] Shabnam Rae Albumin/Globulin [Mass ratio] 1.0 {ratio} Normal [facility] Comment on above: Performed By: #### P SAFREE #### [facility] [address] [place] [address] Dr. Shabnam Rae ALP [Catalytic activity/Vol] 114 U/L Normal 46-116 [facility] Comment on above: Performed By: #### P SAFREE #### [facility] [address] [address] [address] Shabnam Rae ALT [Catalytic activity/Vol] 26 U/L Normal 16-63 [facility] Comment on above: Performed By: #### P SAFREE #### [facility] [address] [address] [address] Shabnam Rae Anion gap [Moles/Vol] 9.3 mmol/L Normal [facility] Comment on above: Performed By: #### P SAFREE #### [facility] [address] [address] [address] Shabnam Rae AST [Catalytic activity/Vol] 19 U/L Normal 15-37 [facility] Comment on above: Performed By: #### P SAFREE #### [facility] [address] [address] [address] Shabnam Rae Bilirubin [Mass/Vol] 0.5 mg/dL Normal 0.2-1.0 [facility] Comment on above: Performed By: #### P SAFREE #### [facility] [address] [address] [address] Shabnam Rae Calcium [Mass/Vol] 8.9 mg/dL Normal 8.5-10.1 [facility] Comment on above: Performed By: #### P SAFREE #### [facility] [address] [address] [address] Shabnam Rae Chloride [Moles/Vol] 106 mmol/L Normal 98-107 [facility] Comment on above: Performed By: #### P SAFREE #### [facility] [address] [place] [address] Dr. Shabnam Rae CO2 [Moles/Vol] 30.7 mmol/L Normal 21.0-32.0 [facility] Comment on above: Performed By: #### P SAFREE #### [facility] [address] [place] [address] Dr. Shabnam aRe Creatinine [Mass/Vol] 1.15 mg/dL Normal 0.70-1.30 [facility] Comment on above: Performed By: #### P SAFREE #### [facility] [address] [place] [address] Dr. Shabnam Rae EGFR-AF TURKS AND CAICOS ISLANDER >60 Normal >=60 [facility] Comment on above: Performed By: #### P SAFREE #### [facility] [address] [address] [address] Shabnam Rae EGFR-NON AF TURKS AND CAICOS ISLANDER >60 Normal >=60 [facility] Comment on above: Performed By: #### P SAFREE #### [facility] [address] [place] [address] Dr. Shabnam Rae Globulin (S) [Mass/Vol] 3.6 g/dL Normal [facility] Comment on above: Performed By: #### P SAFREE #### [facility] [address] [address] [address] Shabnam Rae Glucose [Mass/Vol] 117 mg/dL Critically high 74-106 [facility] Comment on above: Performed By: #### P SAFREE #### [facility] [address] [address] [address] Shabnam Rae Potassium [Moles/Vol] 4.0 mmol/L Normal 3.5-5.1 [facility] Comment on above: Performed By: #### P SAFREE #### [facility] [address] [place] [address] Dr. Shabnam Rae Protein [Mass/Vol] 7.2 g/dL Normal 6.1-8.2 [facility] Comment on above: Performed By: #### P SAFREE #### [facility] [address] [place] [address] Dr. Shabnam Rae Sodium [Moles/Vol] 142 mmol/L Normal 136-145 [facility] Comment on above: Performed By: #### P SAFREE #### [facility] [address] [place] [address] Dr. Shabnam Rae Urea nitrogen [Mass/Vol] 15.0 mg/dL Normal 7.0-18.0 [facility] Comment on above: Performed By: #### P SAFREE #### [facility] [address] [place] [address] Dr. Shabnam Rae Urea nitrogen/Creatinine [Mass ratio] 13.0 mg/mg Normal [facility] Comment on above: Performed By: #### P SAFREE #### [facility] [address] [place] [address] Dr. Shabnam Rae US SCROTUMon 01-05-2022 US [...] ALVINA CAICEDO Date: 2022-01-05 08:48 Normal [facility] CBC AUTO DIFFon 01-04-2022 BASO # 0.1 103/ul Normal 0.0-0.1 [facility] Comment on above: Performed By: #### C BC #### [facility] [address] [place] [address] Dr. Shabnam Rae Basophils/100 WBC (Bld) 0.8 % Normal 0.2-2.0 [facility] Comment on above: Performed By: #### C BC #### [facility] [address] [place] [address] Dr. Shabnam Rae EO # 0.1 103/ul Normal 0.0-0.7 [facility] Comment on above: Performed By: #### C BC #### [facility] [address] [place] [address] Dr. Shabnam Rae Eosinophils/100 WBC (Bld) 1.5 % Normal 0.9-7.0 [facility] Comment on above: Performed By: #### C BC #### [facility] [address] [place] [address] Dr. Shabnam Rae Erythrocyte distribution width (RBC) [Ratio] 12.8 % Normal 11.0-15.0 [facility] Comment on above: Performed By: #### C BC #### [facility] [address] [address] [address] Shabnam Rae Hematocrit (Bld) [Volume fraction] 40.3 % Critically low 42.0-54.0 [facility] Comment on above: Performed By: #### C BC #### [facility] [address] [address] [address] Shabnam Rae Hemoglobin (Bld) [Mass/Vol] 13.4 g/dL Critically low 14.0-18.0 [facility] Comment on above: Performed By: #### C BC #### [facility] [address] [place] [address] Dr. Shabnam Rae IG # 0.03 10e3/ul Normal 0.00-0.03 [facility] Comment on above: Performed By: #### C BC #### [facility] [address] [place] [address] Dr. Shabnam Rae IG % 0.5 % Normal 0.0-0.5 [facility] Comment on above: Performed By: #### C BC #### [facility] [address] [place] [address] Dr. Shabnam Rae LYMPH # 1.0 103/ul Critically low 1.2-3.8 [facility] Comment on above: Performed By: #### C BC #### [facility] [address] [place] [address] Dr. Shabnam Rae Lymphocytes/100 WBC (Bld) 16.4 % Critically low 20.5-60.0 [facility] Comment on above: Performed By: #### C BC #### [facility] [address] [address] [address] Shabnam Rae MANUAL DIFF REQ NO Normal [facility] Comment on above: Performed By: #### C BC #### [facility] [address] [place] [address] Dr. Shabnam Rae MCH (RBC) [Entitic mass] 29.5 pg Normal 25.9-34.0 [facility] Comment on above: Performed By: #### C BC #### [facility] [address] [address] [address] Shabnam Rae MCHC (RBC) [Mass/Vol] 33.3 g/dL Normal 29.9-35.2 [facility] Comment on above: Performed By: #### C BC #### [facility] [address] [place] [address] Dr. Shabnam Rae MCV (RBC) [Entitic vol] 88.8 fL Normal 80.0-94.0 [facility] Comment on above: Performed By: #### C BC #### [facility] [address] [place] [address] Dr. Shabnam Rae MONO # 0.6 103/ul Normal 0.3-0.8 [facility] Comment on above: Performed By: #### C BC #### [facility] [address] [place] [address] Dr. Shabnam Rae Monocytes/100 WBC (Bld) 9.6 % Normal 1.7-12.0 [facility] Comment on above: Performed By: #### C BC #### [facility] [address] [place] [address] Dr. Shabnam Rae NEUT # 4.4 103/ul Normal 1.4-6.5 [facility] Comment on above: Performed By: #### C BC #### [facility] [address] [place] [address] Dr. Shabnam Rae Neutrophils/100 WBC (Bld) 71.2 % Normal 43.0-75.0 [facility] Comment on above: Performed By: #### C BC #### [facility] [address] [place] [address] Dr. Shabnam Rae Platelet mean volume (Bld) [Entitic vol] 10.8 fL Normal 9.5-13.5 [facility] Comment on above: Performed By: #### C BC #### [facility] [address] [place] [address] Dr. Shabnam Rae PLT 158 103/ul Normal 150-450 [facility] Comment on above: Performed By: #### C BC #### [facility] [address] [place], [place] [address] Dr. Shabnam Rae RBC 4.54 106/ul Critically low 4.70-6.10 [facility] Comment on above: Performed By: #### C BC #### [facility] [address] [place], [place] [address] Dr. Shabnam Rae WBC 6.2 103/ul Normal 4.0-11.0 [facility] Comment on above: Performed By: #### C BC #### [facility] [address] [place], [place] [address] ABD/PELV W CONon 01-05-20 22 [...] MAYRA BERNAL Date: 2022-01-04 05:19 Normal [facility] CT PELVIS WO CONon 2 CT PELVIS [...] MANUEL HOUGH Date: 2022-01-04 08:54 Normal [facility] CULTURE URINEon 01-04-2022 CULTURE URINE Culture Observations: No growth Normal [facility] Comment on above: Performed By: #### P SASC #### [facility] [address] [place] [address] Dr. Shabnam Rae Covid-19 PCR (CVDTB)on 12-13 SARS-CoV-2 (COVID-19) RNA ELIJAH+probe Ql (Unsp spec) Not detected Normal NOT DETECTED [facility] Comment on above: Result Comment: When diagnostic testing is negative, the possibility of a false negative should be considered in the context of a patient's recent exposures and the presence of clinical signs and symptoms consistent with SARS-CoV-2. This test is not yet approved or cleared by the [place] Food and Drug Administration (FDA). This test was developed by [employer], [place], [place]. The performance characteristics of this test were validated by [facility]. The results are not intended to be used as the sole means for clinical diagnosis or patient management decisions. [facility] is authorized under Clinical Laboratory Improvement Amendments [...] for this test is supported by the [place] of Health and Human Service's declaration that [...] used). Performed By: #### C VDTBH #### [facility] [address] [place] [address] Dr. Shabnam Rae ER URINE PROFILEon Bilirubin Ql (U) Negative Normal NEGATIVE [facility] Comment on above: Performed By: #### P SASC #### [facility] [address] [place] [address] Dr. Shabnam Rae Clarity (U) CLEAR Normal CLEAR [facility] Comment on above: Performed By: #### P SASC #### [facility] [address] [place] [address] Dr. Shabnam Rae Color (U) YELLOW Normal YELLOW [facility] Comment on above: Performed By: #### P SASC #### [facility] [address] [place] [address] Dr. Shabnam HERNANDEZ A micrscopic examination will be performed if indicated. Normal [facility] Comment on above: Performed By: #### P SASC #### [facility] [address] [address] [address] Shabnam Rae Glucose Ql (U) Negative Normal NEGATIVE [facility] Comment on above: Performed By: #### P SASC #### [facility] [address] [address] [address] Shabnam Rae Hemoglobin Ql (U) Negative Normal NEGATIVE [facility] Comment on above: Performed By: #### P SASC #### [facility] [address] [place] [address] Dr. Shabnam Rae Ketones Ql (U) Negative Normal NEGATIVE [facility] Comment on above: Performed By: #### P SASC #### [facility] [address] [place] [address] Dr. Shabnam Rae LEUKOCYTES Negative Normal NEGATIVE [facility] Comment on above: Performed By: #### P SASC #### [facility] [address] [place] [address] Dr. Shabnam Rae Nitrite Ql (U) Negative Normal NEGATIVE [facility] Comment on above: Performed By: #### P SASC #### [facility] [address] [address] [address] Shabnam Rae pH (U) 6.5 [pH] Normal 5-9 [facility] Comment on above: Performed By: #### P SASC #### [facility] [address] [place] [address] Dr. Shabnam Rae SPEC GRAVITY 1.010 Normal 1.005-<=1.025 [facility] Comment on above: Performed By: #### P SASC #### [facility] [address] [place] [address] Dr. Shabnam Rae UA PROTEIN Negative Normal NEGATIVE/ TRACE [facility] Comment on above: Performed By: #### P SASC #### [facility] [address] [address] [address] Shabnma Rae UR MICRO IND NOT INDICATED Normal [facility] Comment on above: Performed By: #### P SASC #### [facility] [address] [place] [address] Dr. Shabnam Rae Urobilinogen Qn (U) 0.2 {Sarai'U}/dL Normal 0.2 - 1. 0 [facility] Comment on above: Performed By: #### P SASC #### [facility] [address] [address] [address] Shabnam Rae LACTATE/LACTIC ACIDon 2021 Lactate [Moles/Vol] 1.0 mmol/L Normal 0.4-2.0 [facility] Comment on above: Performed By: #### P SASC #### [facility] [address] [place] [address] Dr. Shabnam Rae PROF CHEM 8 (BAS METB)on Anion gap [Moles/Vol] 10.0 mmol/L Normal [facility] Comment on above: Performed By: #### B MP #### [facility] [address] [place] [address] Dr. Shabnam Rae Calcium [Mass/Vol] 8.5 mg/dL Normal 8.5-10.1 [facility] Comment on above: Performed By: #### B MP #### [facility] [address] [place] [address] Dr. Shabnam Rae Chloride [Moles/Vol] 103 mmol/L Normal 98-107 [facility] Comment on above: Performed By: #### B MP #### [facility] [address] [place] [address] Dr. Shabnam aRe CO2 [Moles/Vol] 29.2 mmol/L Normal 21.0-32.0 [facility] Comment on above: Performed By: #### B MP #### [facility] [address] [place] [address] Dr. Shbanam Rae Creatinine [Mass/Vol] 1.25 mg/dL Normal 0.70-1.30 [facility] Comment on above: Performed By: #### B MP #### [facility] [address] [address] [address] Shabnam Rae EGFR-AF TURKS AND CAICOS ISLANDER >60 Normal >=60 [facility] Comment on above: Performed By: #### B MP #### [facility] [address] [address] [address] Shabnam Rae EGFR-NON AF TURKS AND CAICOS ISLANDER >60 Normal >=60 [facility] Comment on above: Performed By: #### B MP #### [facility] [address] [address] [address] Shabnam Rae Glucose [Mass/Vol] 132 mg/dL Critically high 74-[address] [facility] Comment on above: Performed By: #### B MP #### [facility] [address] [place] [address] Dr. Shabnam Rae Potassium [Moles/Vol] 3.2 mmol/L Critically low 3.5-5.1 [facility] Comment on above: Performed By: #### B MP #### [facility] [address] [place] [address] Dr. Shabnam Rae Sodium [Moles/Vol] 139 mmol/L Normal 136-145 [facility] Comment on above: Performed By: #### B MP #### [facility] [address] [place] [address] Dr. Shabnam Rae Urea nitrogen [Mass/Vol] 19.0 mg/dL Critically high 7.0-18.0 [facility] Comment on above: Performed By: #### B MP #### [facility] [address] [address] [address] Shabnam Rae Urea nitrogen/Creatinine [Mass ratio] 15.2 mg/mg Normal [facility] Comment on above: Performed By: #### B MP #### [facility] [address] [place] [address] Dr. Shabnam Rae CERVICAL SPINE 2 OR 3 [facility] 07-06-2019 CERVICAL SPINE 2 OR 3 [facility] Department of Radiology [address] [place] [address] Patient Name: MATTY GARCES : 1970 Sex: M Age: Race: White Pt. Location: Patient Status: O Ordered Date: 07/06/2019 9:10:00 AM Completed Date: 07/06/2019 09:21 AM Requesting Provider: LUCIANO VIEIRA Attending Provider: LUCIANO VIEIRA Report Copy To: VENUS MENDEZ Signs & Symptoms: M48.02 Spinal stenosis, cervical region I10 History: [place] Comments: , STAT READ , STAT READ , , , Ordering Provider - LUCIANO VIEIRA MD , Exam: CERVICAL SPINE 2 OR 3 [facility] CERVICAL SPINE 2 OR 3 S 07/06/2019 9:21 AM EDT SIGNS AND SYMPTOMS: [...] findings. Electronically signed by:Bernice Hoyt. Transcribed by: [email or web address], User Resident: RADHA CHIN Electronically Signed by: BERNICE HOYT @ 07/06/2019 08:52 PM I personally read this/these film(s) with this resident Normal [facility] Comment on above: Order Comment: , STA T READ , STAT READ , , , Ordering Provider - LUCIANO VIEIRA MD , CERVICAL SPINE 2 OR 3 [facility] 04-06-2019 CERVICAL SPINE 2 OR 3 [facility] Department of Radiology [address] [place] [id number] Patient Name: MATTY GARCES : 1970 [...] FALLS Exam: CERVICAL SPINE 2 OR 3 [facility] CERVICAL SPINE 2 OR 3 S [...] study. Electronically signed by:Bernice Hoyt. Transcribed by: [email or web address], User Resident: Electronically Signed by: BERNICE HOYT @ 04/06/2019 04:40 PM Normal [facility] Comment on above: Order Comment: AP/LA T, ODONTOID PLEASE DO SWIMMER'S VIEW FOLLOW UP HARDWARE AND ALIGNMENT, S/P ACDF, RECENT FALLS CERVICAL SPINE 2 OR 3 [facility] 02-17-2019 CERVICAL SPINE 2 OR 3 [facility] Department of Radiology [address] [place] [phone] Patient Name: MATTY GARCES : 1970 [...] Tinajero on 02/17/2019 6:24 PM EDT. I, Blanco Eli, have reviewed the images and report and concur with these findings. Electronically signed by:Bella King. Transcribed by: [email or web address], User Resident: EMILE TINAJERO Electronically Signed by: BELLA KING @ 02/20/2019 11:53 AM I personally read this/these film(s) with this resident Normal [facility] Comment on above: Order Comment: C-SPI NE 2 OR 3 VIEW POSTOP, EVALUATION HARDWARE AN ALIGNMENT BASIC METABOLIC PANELon 05-2 Calcium [Mass/Vol] 9.2 mg/dL Normal 8.6-10.3 [facility] Comment on above: Order Comment: No: D o not add to previous draw Performed By: #### 5 0103 #### [facility] [address] [place] [address], [facility] Chloride [Moles/Vol] 101 mmol/L Normal 98-107 [facility] Comment on above: Order Comment: No: D o not add to previous draw Performed By: #### 5 0103 #### [facility] [address] [place] [address], [place] CO2 [Moles/Vol] 26 mmol/L Normal 21-31 [facility] Comment on above: Order Comment: No: D o not add to previous draw Performed By: #### 5 0103 #### [facility] [address] [place] [address], [place] Creatinine [Mass/Vol] 1.02 mg/dL Normal 0.70-1.30 [facility] Comment on above: Order Comment: No: D o not add to previous draw Performed By: #### 5 0103 #### [facility] [address] [place] [address], [place] GFR/1.73 sq M predicted among blacks MDRD (S/P/Bld) [Vol rate/Area] mL/min/{1.73_m2} Normal >60 [facility] Comment on above: Order Comment: No: D o not add to previous draw Performed By: #### 5 0103 #### [facility] [address] [place] [address], [facility] GFR/1.73 sq M predicted among non-blacks MDRD (S/P/Bld) [Vol rate/Area] mL/min/{1.73_m2} Normal >60 [facility] Comment on above: Order Comment: No: D o not add to previous draw Performed By: #### 5 0103 #### [facility] [address] [place] [address], [facility] Glucose [Mass/Vol] 124 mg/dL High 70-100 [facility] Comment on above: Order Comment: No: D o not add to previous draw Performed By: #### 5 0103 #### [facility] [address] [place] [address], [facility] Potassium [Moles/Vol] 3.9 mmol/L Normal 3.5-5.1 [facility] Comment on above: Order Comment: No: D o not add to previous draw Performed By: #### 5 0103 #### [facility] [address] [place] [address], [facility] Sodium [Moles/Vol] 137 mmol/L Normal 136-145 [facility] Comment on above: Order Comment: No: D o not add to previous draw Performed By: #### 5 0103 #### [facility] [address] [place] [address], [facility] Urea nitrogen [Mass/Vol] 15 mg/dL Normal 7-25 [facility] Comment on above: Order Comment: No: D o not add to previous draw Performed By: #### 5 0103 #### [facility] [address] [place] [address], [facility] CBC COMPLETE BLOOD COUNTon 0 - Erythrocyte distribution width (RBC) [Ratio] 13.9 % Normal 11.5-15.0 [facility] Comment on above: Order Comment: No: D o not add to previous draw Performed By: #### 5 0103 #### [facility] [address] [place] [address], [facility] Hematocrit (Bld) [Volume fraction] 50.0 % Normal 39.0-50.0 [facility] Comment on above: Order Comment: No: D o not add to previous draw Performed By: #### 5 0103 #### [facility] [address] [place] [address], [facility] Hemoglobin (Bld) [Mass/Vol] 16.0 g/dL Normal 13.0-17.0 [facility] Comment on above: Order Comment: No: D o not add to previous draw Performed By: #### 5 0103 #### [facility] [address] [place], [place] [address], [facility] MCH (RBC) [Entitic mass] 27.5 pg Normal 27.0-33.0 [facility] Comment on above: Order Comment: No: D o not add to previous draw Performed By: #### 5 0103 #### [facility] [address] [address], [facility] MCHC (RBC) [Mass/Vol] 32.0 g/dL Normal 32.0-35.0 [facility] Comment on above: Order Comment: No: D o not add to previous draw Performed By: #### 5 0103 #### [facility] [address] [address], [facility] MCV (RBC) [Entitic vol] 85.9 fL Normal 82.0-98.0 [facility] Comment on above: Order Comment: No: D o not add to previous draw Performed By: #### 5 0103 #### [facility] [address] [place] [address], [facility] Nucleated RBC/100 WBC (Bld) [Ratio] 0 % Normal 0-0 [facility] Comment on above: Order Comment: No: D o not add to previous draw Performed By: #### 5 0103 #### [facility] [address] [place] [address], [facility] PLAT CNT 249 10*3/uL Normal 150-400 The [facility] Comment on above: Order Comment: No: D o not add to previous draw Performed By: #### 5 0103 #### [facility] [address] [place] [address], [facility] RBC (Bld) [#/Vol] 5.82 10*6/uL High 4.20-5.70 The [facility] Comment on above: Order Comment: No: D o not add to previous draw Performed By: #### 5 0103 #### [facility] [address] [place] [address], [facility] WBC (Bld) [#/Vol] 15.85 10*3/uL High 4.00-10.60 [facility] Comment on above: Order Comment: No: D o not add to previous draw Performed By: #### 5 0103 #### [facility] [address] [facility]. [address] Operative Reporton 9 Operative Report MR#: [id number] I [facility] Pt. Name: Matty Garces Room #: [id number] Discharge Date: Birthdate: 1970 OPERATIVE REPORT DATE OF SURGERY: 01/30/2019 SURGEON: Luciano Vieira M.D. 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 POSTOPERATIVE DIAGNOSIS: Failed instrumentation at C6-7 on the right. MASTER OCEAN YACHT: ADENIKE Lugo. ANESTHESIA: Endotracheal, Hogan. PROCEDURES: Redo [...] P/Luciano Vieira M.D. Date Trans: 01/31/2019 02:31 A/mmo [id number] cc: Venus Mendez M.D. [address] [place] [address] Normal [facility] CERVICAL SPINE 2 OR 3 Son 01-30-2019 CERVICAL SPINE 2 OR 3 S [facility] Department of Radiology [address] [place] [id number] Patient Name: MATTY GARCES : 1970 Sex: M Age: Race: White Pt. Location: Patient Status: O Ordered Date: 01/30/2019 7:05:00 AM Completed Date: 01/30/2019 04:12 PM Requesting Provider: LUCIANO VIEIRA Attending Provider: LUCIANO VIEIRA Report Copy To: Signs & Symptoms: C6-7 ACDF History: C6-7 ACDF Comments: C6-7 ACDF Exam: CERVICAL SPINE 2 OR 3 [facility] CERVICAL SPINE 2 OR 3 S 01/30/2019 4:12 PM EDT SIGNS AND SYMPTOMS: C6-7 ACDF TECHNOLOGIST COMMENTS: Intra op ACDF C6-7 with , 30 sec of fluoro time used QUESTION FOR THE RADIOLOGIST: C6-7 ACDF PROTOCOLS: AP, Odontoid and Lateral views were obtained. COMPARISON: None FINDINGS: 5 images were obtained. Fluoroscopic time as utilized above. IMPRESSION: For documentation Electronically signed by:Justus Murphy. Transcribed by: [email or web address], User Resident: Electronically Signed by: JUSTUS EFRENKEESHA @ 01/30/2019 04:18 PM Normal [facility] Comment on above: Order Comment: C6-7 ACDF POC GLUCOSE LABon 01-30-2019 Glucose [Mass/Vol] 106 mg/dL High 70-100 The [facility] Comment on above: Performed By: #### 5 0103 #### [facility] [address] [employer] *MRSA/MSSA DNA NASALon 01-23 *MRSA/MSSA DNA NASAL Clinical Report: (D ) Specimen: NASAL SWAB Collected: 01/23/2019 15:02 Status: Final Last Updated: 01/23/2019 20:14 MSSA DNA (Final) Methicillin Susceptible Staphylococcus aureus DNA Detected MRSA DNA (Final) No Methicillin Resistant Staphylococcus aureus DNA Detected Normal [facility] Comment on above: Performed By: #### 5 0103 #### [facility] [address] [facility] [place] [place] [address], [facility] APTTon 01-23-2019 aPTT Coag (Bld) [Time] 35.4 s High 25.0-35.0 [facility] Comment on above: Result Comment: [...] THIS PURPOSE. Performed By: #### 5 7307, 74375 #### [facility] [address] [place] [address], [facility] BASIC METABOLIC PANELon 01-11 Calcium [Mass/Vol] 9.5 mg/dL Normal 8.6-10.3 [facility] Comment on above: Performed By: #### 5 7307, 72312 #### [facility] [address] [place] [address], [place] Chloride [Moles/Vol] 101 mmol/L Normal 98-107 [facility] Comment on above: Performed By: #### 5 7307, 74861 #### [facility] [address] [place] [address], [place] CO2 [Moles/Vol] 29 mmol/L Normal 21-31 [facility] Comment on above: Performed By: #### 5 07, 20132 #### [facility] [address] [place] [address], [place] Creatinine [Mass/Vol] 1.08 mg/dL Normal 0.70-1.30 [facility] Comment on above: Performed By: #### 5 73, 80534 #### [facility] [address] [place] [address], [place] GFR/1.73 sq M predicted among blacks MDRD (S/P/Bld) [Vol rate/Area] mL/min/{1.73_m2} Normal >60 [facility] Comment on above: Performed By: #### 5 7306, 35090 #### [facility] [address] [place] [address], [place] GFR/1.73 sq M predicted among non-blacks MDRD (S/P/Bld) [Vol rate/Area] mL/min/{1.73_m2} Normal >60 [facility] Comment on above: Performed By: #### 5 7307, 98461 #### [facility] [address] [place] [address], [place] Glucose [Mass/Vol] 87 mg/dL Normal 70-100 [facility] Comment on above: Performed By: #### 5 7307, 72686 #### [facility] [address] [place] [address], [place] Potassium [Moles/Vol] 4.0 mmol/L Normal 3.5-5.1 [facility] Comment on above: Performed By: #### 5 7307, 97532 #### [facility] [address] [facility] [place] [address], [facility] Sodium [Moles/Vol] 137 mmol/L Normal 136-145 [facility] Comment on above: Performed By: #### 5 7307, 88604 #### [facility] [address] [facility] [address] Urea nitrogen [Mass/Vol] 12 mg/dL Normal 7-25 [facility] Comment on above: Performed By: #### 5 73, 57792 #### [facility] [address] [facility] [place] [address], [facility] CBC W/DIFFon 01-23-2019 ABS BASOPHILS 0.1 10*3/uL Normal 0.0-0.2 The [facility] Comment on above: Performed By: #### 5 73Al, 60396 #### [facility] [address] [facility]. [address] ABS IMM GRANS 0.0 10*3/uL Normal 0.0-0.2 The [facility] Comment on above: Performed By: #### 5 7307, 65006 #### [facility] [address] [facility]. [address] ABS NEUTROPHILS 5.3 10*3/uL Normal 1.6-7.6 The [facility] Comment on above: Performed By: #### 5 73Al, 39309 #### [facility] [address] [facility] [place] [address], [facility] Basophils/100 WBC (Bld) 0.9 % Normal 0.0-1.0 [facility] Comment on above: Performed By: #### 5 7307, 15124 #### [facility] [address] [facility] [place] [address], [facility] Eosinophils (Bld) [#/Vol] 0.2 10*3/uL Normal 0.0-0.5 [facility] Comment on above: Performed By: #### 5 7306, 45636 #### [facility] [address] [place] [address], [facility] Eosinophils/100 WBC (Bld) 2.3 % Normal 0.0-6.0 [facility] Comment on above: Performed By: #### 5 7306, 91331 #### [facility] [address] [place] [address], [facility] Erythrocyte distribution width (RBC) [Ratio] 13.8 % Normal 11.5-15.0 [facility] Comment on above: Performed By: #### 5 7306, 54775 #### [facility] [address] [place] [address], [facility] Hematocrit (Bld) [Volume fraction] 49.6 % Normal 39.0-50.0 [facility] Comment on above: Performed By: #### 5 7306, 82791 #### [facility] [address] [place] [address], [facility] Hemoglobin (Bld) [Mass/Vol] 16.4 g/dL Normal 13.0-17.0 [facility] Comment on above: Performed By: #### 5 7306, 28006 #### [facility] [address] [place] [address], [facility] IMMATURE GRANS 0.5 % Normal 0.0-1.0 The [facility] Comment on above: Performed By: #### 5 7306, 92233 #### [facility] [address] [place] [address], [facility] Lymphocytes (Bld) [#/Vol] 1.2 10*3/uL Normal 1.2-4.0 [facility] Comment on above: Performed By: #### 5 7306, 17330 #### [facility] [address] [place] [id number], [facility] Lymphocytes/100 WBC (Bld) 16.6 % Low 20.0-45.0 [facility] Comment on above: Performed By: #### 5 7306, 94415 #### [facility] [address] [facility] MCH (RBC) [Entitic mass] 27.8 pg Normal 27.0-33.0 [facility] Comment on above: Performed By: #### 5 7306, 05028 #### [facility] [address] MCHC (RBC) [Mass/Vol] 33.1 g/dL Normal 32.0-35.0 [facility] Comment on above: Performed By: #### 5 7306, 93575 #### [facility] [address] [facility] [address] MCV (RBC) [Entitic vol] 84.2 fL Normal 82.0-98.0 [facility] Comment on above: Performed By: #### 7306, 31691 #### [facility] [address] [facility] [address] Monocytes (Bld) [#/Vol] 0.7 10*3/uL Normal 0.1-1.0 [facility] Comment on above: Performed By: #### 7306, 89633 #### [facility] [address] [facility] [place] [address], [facility] MONOS 9.4 % Normal 5.0-12.0 [facility] Comment on above: Performed By: #### 5 7306, 06461 #### [facility] [address] [facility] [place] [address], [facility] Neutrophils/100 WBC (Bld) 70.3 % Normal 40.0-72.0 [facility] Comment on above: Performed By: #### 7306, 22277 #### [facility] [address] Nucleated RBC/100 WBC (Bld) [Ratio] 0 % Normal 0-0 [facility] Comment on above: Performed By: #### 5 7307, 16745 #### [facility] [address] [place] [address], [facility] PLAT CNT 235 10*3/uL Normal 150-400 The [facility] Comment on above: Performed By: #### 5 7307, 07439 #### [facility] [address] RBC (Bld) [#/Vol] 5.89 10*6/uL High 4.20-5.70 The [facility] Comment on above: Performed By: #### 5 7307, 99042 #### [facility] [address] WBC (Bld) [#/Vol] 7.48 10*3/uL Normal 4.00-10.60 The [facility] Comment on above: Performed By: #### 5 7307, 55397 #### [facility] [address] PROTHROMBIN TIMEon 9 INR Coag (PPP) [Relative time] 1.12 {INR} Normal 0.91-1.16 [facility] Comment on above: Result Comment: [...] CHEST 1995;108:231S-246S. Performed By: #### 5 7307, 04556 #### [facility] [address] PT Coag (PPP) [Time] 14.4 s Normal 12.3-14.8 [facility] Comment on above: Result Comment: ALL RESULTS MUST BE INTERPRETED WITH RESPECT TO BLOOD DRAWING ARTIFACT OR DILUTION ERROR OF ANTICOAGULANT AT THE TIME OF SAMPLING. Performed By: #### 5 7307, 47148 #### [facility] [address] TYPE AND SCREENon 01-23-2019 ABO INTERPRETATION A Normal [facility] Comment on above: Performed By: #### 5 7307, 73927 #### [facility] [address] [facility] [place] [address], [facility] RH INTERPRETATION Positive Normal The [facility] Comment on above: Performed By: #### 5 7307, 57883 #### [facility] [address] [facility] [address] 3D CERVICAL SPINE WO CONT RASTon 01-12-2019 CT 3D CERVICAL SPINE WO CONTRAST [facility] Department of Radiology [address] [place] [id number] Patient Name: MATTY GARCES : 1970 Sex: M Age: Race: White Pt. Location: Patient Status: D Ordered Date: 01/10/2019 2:15:00 PM Completed Date: 01/12/2019 10:32 AM Requesting Provider: LUCIANO VIEIRA Attending Provider: LUCIANO VIEIRA Report Copy To: VENUS MENDEZ Signs & Symptoms: M48.02 Spinal stenosis, cervical region I10 History: Althea para auth # [id number] 01/10/19-02/09/19 [id number] *er Comments: Exam: CT 3D CERVICAL SPINE [...] incomplete Electronically signed by:Ten Garland. Transcribed by: [email or web address], User Resident: Electronically Signed by: TEN GARLAND @ 01/13/2019 09:18 AM [place] [facility] CERVICAL SPINE 2 OR 3 [facility] 01-05-2019 CERVICAL SPINE 2 OR 3 [facility] Department of Radiology [address] [place] [phone] Patient Name: MATTY GARCES : 1970 [...] , Exam: CERVICAL SPINE 2 OR 3 [facility] CERVICAL SPINE 2 OR 3 [facility] 01/05/2019 9:06 AM EDT SIGNS AND SYMPTOMS: [...] findings. Electronically signed by:Ten Garland. Transcribed by: [email or web address], User Resident: SHELLY DELA CRUZ Electronically Signed by: TEN GARLAND @ 01/05/2019 12:37 PM I personally read this/these film(s) with this resident Normal [facility] Comment on above: Order Comment: , , = ========= , Ordering Provider - LUCIANO VIEIRA MD , CERVICAL SPINE 2 OR 3 [facility] 08-30-2018 CERVICAL SPINE 2 OR 3 [facility] Department of Radiology [address] [place] [phone] Patient Name: MATTY GARCES : 1970 [...] 3 VWS CERVICAL SPINE 2 OR 3 S 08/30/2018 9:43 AM EST SIGNS AND SYMPTOMS: [...] findings. Electronically signed by:Bella King. Transcribed by: [email or web address], User Resident: RYAN HEAD Electronically Signed by: BELLA KING @ 08/30/2018 05:45 PM I personally read this/these film(s) with this resident Normal [facility] Comment on above: Order Comment: , POS T OP XRAY AP/LAT ONLY , POST OP XRAY AP/LAT ONLY , , , Ordering Provider - LUCIANO VIEIRA MD , Operative Reporton 8 Operative Report MR#: [id number] I [facility] Pt. Name: Matty Garces Room #: [id number] Discharge Date: Birthdate: 1970 OPERATIVE REPORT DATE OF SURGERY: 08/17/2018 SURGEON: Luciano Vieira M.D. PREOPERATIVE DIAGNOSIS: Herniated cervical disk at C6-7. POSTOPERATIVE DIAGNOSIS: Herniated cervical disk at C6-7. MASTER OCEAN YACHT: ADENIKE Larios. ANESTHESIA: Endotracheal, Braida. PROCEDURE: Anterior [...] Vieira M.D. Date Trans: 08/17/2018 11:25 P/sasha [id number] cc: Venus Mendez M.D. [address], [facility] [address] [facility] CERVICAL SPINE 2 OR 3 [facility] 08-17-2018 CERVICAL SPINE 2 OR 3 S [facility] Department of Radiology [address] [place] [address] Patient Name: MATTY GARCES : 1970 Sex: M Age: Race: White Pt. Location: Patient Status: I Ordered Date: 08/17/2018 8:30:00 AM Completed Date: 08/17/2018 11:49 AM Requesting Provider: LUCIANO VIEIRA Attending Provider: LUCIANO VIEIRA Report Copy To: Signs & Symptoms: C6-7 ACDF with History: C6-7 ACDF with Comments: C6-7 ACDF with Exam: CERVICAL SPINE 2 OR 3 [facility] CERVICAL SPINE 2 OR 3 [facility] 08/17/2018 11:49 AM EST SIGNS AND SYMPTOMS: [...] findings. Electronically signed by:Bernice Hoyt. Transcribed by: [email or web address], User Resident: EMILE TINAJERO Electronically Signed by: BERNICE HOYT @ 08/18/2018 01:06 PM I personally read this/these film(s) with this resident Normal [facility] Comment on above: Order Comment: C6-7 ACDF with POC GLUCOSE LABon 08-17-2018 Glucose [Mass/Vol] 113 mg/dL High 70-100 [facility] Comment on above: Performed By: #### 8 5499 #### [facility] [address] [facility] [place] [address], [facility] RBC'S 2 UNITSon 08-17-2018 CROSSMATCH INTERP 1 COMP Normal [facility] Comment on above: Performed By: #### 8 6002 #### [facility] [address] [place] [address], [facility] CROSSMATCH INTERP 2 COMP Normal [facility] Comment on above: Performed By: #### 8 6002 #### [facility] [address] [facility] [place] [address], [facility] PRODUCT CODE 1 E0336 Normal The [facility] Comment on above: Performed By: #### 8 6002 #### [facility] [address] [place] [address], [facility] PRODUCT CODE 2 E0336 Normal [facility] Comment on above: Performed By: #### 8 6002 #### [facility] [address] [facility] [place] [address], [facility] PRODUCT STATUS 1 RE Normal [facility] Comment on above: Result Comment: Resu lt changed by IF on 08/20/2018 07:48. The previous value was XM. Performed By: #### 8 6002 #### [facility] [address] [place] [address], [facility] PRODUCT STATUS 2 RE Normal [facility] Comment on above: Result Comment: Resu lt changed by IF on 08/20/2018 07:48. The previous value was XM. Performed By: #### 8 6002 #### [facility] [address] [place] [address], [facility] UNIT ABO 1 A Normal [facility] Comment on above: Performed By: #### 8 6002 #### [facility] [address] [place] [address], [facility] UNIT ABO 2 A Normal [facility] Comment on above: Performed By: #### 8 6002 #### [facility] [address] [place] [address], [facility] UNIT ID 1 [id number] Normal The [facility] Comment on above: Performed By: #### 8 6002 #### [facility] [address] [place] [address], [facility] UNIT ID 2 [id number] Normal [facility] Comment on above: Performed By: #### 8 6002 #### [facility] [address] [place] [address], [place] UNIT RH 1 Positive Normal The [facility] Comment on above: Performed By: #### 8 6002 #### [facility] [address] [place] [address], [place] UNIT RH 2 Positive Normal [facility] Comment on above: Performed By: #### 8 6002 #### [facility] [address] [place] [address], [place] *MRSA/MSSA CULTUREon 08-02- 018 *MRSA/MSSA CULTURE Clinical Report: (D) Specimen: NASAL SWAB Collected: 08/02/2018 12:37 Status: Final Last Updated: 08/03/2018 14:26 ISO (Final) No Methicillin Resistant Staphylococcus aureus Isolated (MRSA) ISO (Final) Methicillin Sensitive Staphylococcus aureus (MSSA) Isolated Normal [facility] Comment on above: Performed By: #### 3 1302 #### [facility] [address] [facility]. [address] APTTon 08-02-2018 aPTT Coag (Bld) [Time] 31.2 s Normal 25.0-35.0 [facility] Comment on above: Result Comment: [...] THIS PURPOSE. Performed By: #### 5 7307, 16932 #### [facility] [address] BASIC METABOLIC PANELon 07-15 Calcium [Mass/Vol] 9.4 mg/dL Normal 8.6-10.3 [facility] Comment on above: Performed By: #### 0 0071 #### [facility] [address] [facility] [place] [address], [facility] Chloride [Moles/Vol] 103 mmol/L Normal 98-107 [facility] Comment on above: Performed By: #### 0 0071 #### [facility] [address] [facility] [address], [facility] CO2 [Moles/Vol] 29 mmol/L Normal 21-31 [facility] Comment on above: Performed By: #### 0 0071 #### [facility] [address] [facility] [address], [facility] Creatinine [Mass/Vol] 1.06 mg/dL Normal 0.70-1.30 [facility] Comment on above: Performed By: #### 0 0071 #### [facility] [address] [place] [address], [place] GFR/1.73 sq M predicted among blacks MDRD (S/P/Bld) [Vol rate/Area] mL/min/{1.73_m2} Normal >60 [facility] Comment on above: Performed By: #### 0 0071 #### [facility] [address] [place] [address], [place] GFR/1.73 sq M predicted among non-blacks MDRD (S/P/Bld) [Vol rate/Area] mL/min/{1.73_m2} Normal >60 [facility] Comment on above: Performed By: #### 0 0071 #### [facility] [address] [place] [address], [place] Glucose [Mass/Vol] 84 mg/dL Normal 70-100 [facility] Comment on above: Performed By: #### 0 0071 #### [facility] [address] [place] [address], [place] Potassium [Moles/Vol] 4.0 mmol/L Normal 3.5-5.1 [facility] Comment on above: Performed By: #### 0 0071 #### [facility] [address] [place] [address], [place] Sodium [Moles/Vol] 140 mmol/L Normal 136-145 [facility] Comment on above: Performed By: #### 0 0071 #### [facility] [address] [place] [address], [place] Urea nitrogen [Mass/Vol] 20 mg/dL Normal 7-25 [facility] Comment on above: Performed By: #### 0 0071 #### [facility] [address] [place] [address], [place] CBC W/DIFFon 08-02-2018 ABS BASOPHILS 0.1 10*3/uL Normal 0.0-0.2 The [facility] Comment on above: Performed By: #### 5 0103 #### [facility] [address] [place] [address], [facility] ABS IMM GRANS 0.1 10*3/uL Normal 0.0-0.2 [facility] Comment on above: Performed By: #### 5 0103 #### [facility] [address] [facility] [place] [address], [facility] ABS NEUTROPHILS 4.2 10*3/uL Normal 1.6-7.6 [facility] Comment on above: Performed By: #### 5 0103 #### [facility] [address] [facility] [place] [address], [facility] Basophils/100 WBC (Bld) 1.3 % High 0.0-1.0 The [facility] Comment on above: Performed By: #### 5 0103 #### [facility] [address] [place] [address], [facility] Eosinophils (Bld) [#/Vol] 0.1 10*3/uL Normal 0.0-0.5 [facility] Comment on above: Performed By: #### 5 0103 #### [facility] [address] [facility] [place] [id number], [facility] Eosinophils/100 WBC (Bld) 2.0 % Normal 0.0-6.0 [facility] Comment on above: Performed By: #### 5 0103 #### [facility] [address] [place] [address], [facility] Erythrocyte distribution width (RBC) [Ratio] 13.6 % Normal 11.5-15.0 [facility] Comment on above: Performed By: #### 5 3 #### [facility] [address] [place] [id number], [facility] [facility] Hematocrit (Bld) [Volume fraction] 44.3 % Normal 39.0-50.0 The [facility] Comment on above: Performed By: #### 5 0103 #### [facility] [address] [facility] [place] [address], [facility] Hemoglobin (Bld) [Mass/Vol] 15.1 g/dL Normal 13.0-17.0 The [facility] Comment on above: Performed By: #### 5 0103 #### [facility] [address] [facility] [place] [address], [facility] IMMATURE GRANS 1.1 % High 0.0-1.0 The [facility] Comment on above: Performed By: #### 5 0103 #### [facility] [address] [place] [address], [facility] Lymphocytes (Bld) [#/Vol] 1.2 10*3/uL Normal 1.2-4.0 The [facility] Comment on above: Performed By: #### 5 0103 #### [facility] [address] [place] [address], [facility] Lymphocytes/100 WBC (Bld) 18.3 % Low 20.0-45.0 The [facility] Comment on above: Performed By: #### 5 0103 #### [facility] [address] [facility] [address] MCH (RBC) [Entitic mass] 29.0 pg Normal 27.0-33.0 [facility] Comment on above: Performed By: #### 5 0103 #### [facility] [address] [facility] [place] [address], [facility] MCHC (RBC) [Mass/Vol] 34.1 g/dL Normal 32.0-35.0 [facility] Comment on above: Performed By: #### 5 3 #### [facility] [address] [facility] [place] [address], [facility] MCV (RBC) [Entitic vol] 85.0 fL Normal 82.0-98.0 The [facility] Comment on above: Performed By: #### 5 0103 #### [facility] [address] [place] [address], [facility] Monocytes (Bld) [#/Vol] 0.7 10*3/uL Normal 0.1-1.0 The [facility] Comment on above: Performed By: #### 5 0103 #### [facility] [address] [place] [address], [facility] MONOS 11.1 % Normal 5.0-12.0 The [facility] Comment on above: Performed By: #### 5 102 #### [facility] [address] [place] [address], [facility] Neutrophils/100 WBC (Bld) 66.2 % Normal 40.0-72.0 The [facility] Comment on above: Performed By: #### 5 102 #### [facility] [address] Nucleated RBC/100 WBC (Bld) [Ratio] 0 % Normal 0-0 The [facility] Comment on above: Performed By: #### 5 102 #### [facility] [address] [place] [address], [facility] PLAT CNT 179 10*3/uL Normal 150-400 The [facility] Comment on above: Performed By: #### 5 3 #### [facility] [address] [place] [address], [facility] RBC (Bld) [#/Vol] 5.21 10*6/uL Normal 4.20-5.70 The [facility] Comment on above: Performed By: #### 5 102 #### [facility] [address] [place] [address], [facility] WBC (Bld) [#/Vol] 6.39 10*3/uL Normal 4.00-10.60 The [facility] Comment on above: Performed By: #### 5 0103 #### [address] CERVICAL SPINE 4 OR 5 VIEWSo n 08-02-2018 CERVICAL SPINE 4 OR 5 VIEWS [facility] Department of Radiology [address] [place] [address] [place] [address] Patient Name: MATTY GARCES : 1970 [...] findings. Electronically signed by:Bella King. Transcribed by: [email or web address], User Resident: EMILE TINAJERO Electronically Signed by: BELLA KING @ 08/03/2018 11:58 AM I personally read this/these film(s) with this resident Normal The [facility] Comment on above: Order Comment: , PRE OP XRAY AP/LAT \EANDE\ FLEX/EX , PREOP XRAY AP/LAT \EANDE\ FLEX/EX , , , Ordering Provider - LUCIANO VIEIRA MD , PROTHROMBIN TIMEon 8 INR Coag (PPP) [Relative time] 1.15 {INR} Normal 0.91-1.16 The [facility] Comment on above: Result Comment: [...] CHEST 1995;108:231S-246S. Performed By: #### 5 7307, [id number] #### [facility] [address] [place] [address], [facility] PT Coag (PPP) [Time] 14.7 s Normal 12.3-14.8 The [facility] Comment on above: Result Comment: ALL RESULTS MUST BE INTERPRETED WITH RESPECT TO BLOOD DRAWING ARTIFACT OR DILUTION ERROR OF ANTICOAGULANT AT THE TIME OF SAMPLING. Performed By: #### 5 7307, [id number] #### [facility] [address] [place] [address], [facility] TYPE AND SCREENon 08-02-2018 ABO INTERPRETATION A Normal The [facility] Comment on above: Order Comment: 2 uni ts 2 units 2 units 2 units 2 units Performed By: #### 6 2586 #### [facility] [address] [facility] [place] [place] [address], [facility] RH INTERPRETATION Positive Normal The [facility] Comment on above: Order Comment: 2 uni ts 2 units 2 units 2 units 2 units Performed By: #### 6 2586 #### [facility] [address] [place] [address], [facility] URINALYSIS REFLEXon 08-02-20 18 Appearance (U) CLEAR Normal CLEAR The [facility] Comment on above: Performed By: #### 3 0965 #### [facility] [address] [place] [address], [facility] Bilirubin [Mass/Vol] Negative Normal NEGATIVE The [facility] Comment on above: Performed By: #### 3 0965 #### [facility] [address] [place] [address], [facility] BLOOD Negative Normal NEGATIVE The [facility] Comment on above: Performed By: #### 3 0965 #### [facility] [address] [place] [address], [place] Color (U) YELLOW Normal YELLOW The [facility] Comment on above: Performed By: #### 3 0965 #### [facility] [address] [place] [address], [place] Glucose [Mass/Vol] 150 mg/dL Abnormal NEGATIVE [facility] on above: Performed By: #### 3 0965 #### [facility] [address] [place] [address], [place] KETONE Negative Normal NEGATIVE The [facility] Comment on above: Performed By: #### 3 0965 #### [facility] [address] [place] [address], [place] Negative Normal NEGATIVE The [facility] Comment on above: Performed By: #### 3 0965 #### [facility] [address] [place] [address], [place] MICRO NOT DONE negative chemical reactions unless requested in original order Normal The [facility] Comment on above: Performed By: #### 3 0965 #### [facility] [address] [place] [address], [place] Nitrite Ql (U) Negative Normal NEGATIVE The [facility] Comment on above: Performed By: #### 3 0965 #### [facility] [address] [place] [address], [place] pH (Bld) 5.0 Normal 5.0-8.0 The [facility] Comment on above: Performed By: #### 3 0965 #### [facility] [address] [place] [address], [place] Protein (U) [Mass/Vol] Negative Normal NEGATIVE The [facility] Comment on above: Performed By: #### 3 0965 #### [facility] [address] [place] [address], [facility] SPEC GRAV 1.024 High 1.015-1.020 [facility] Comment on above: Performed By: #### 3 0965 #### [facility] [address] [place] [address], [facility] Vital Signs Date Time Vital Sign Value Performing Clinician Molly bunn 02-25-2022 10:30-0400 Blood Pressure Location Viola Lue [facility] 02-25-2022 10:30-0400 Diastolic blood pressure 107 mm[Hg] Viola Lue [facility] 02-25-2022 10:30-0400 Heart rate 74 /min Viola Lue [facility] 02-25-2022 10:30-0400 Respiratory rate 16 /min Viola Lue [facility] 02-25-2022 10:30-0400 Systolic blood pressure 157 mm[Hg] Viola Lue [facility] Encounters Encounter Date Encounter Type Care Provider Facility Start: 10-18-2023 End: 10-19-2023 ambulatory Diallo Beauchamp MD [facility] Start: 09-27-2023 End: 09-27-2023 ambulatory RUBÉN GEIGER Not Available Start: 08-30-2023 End: 08-31-2023 ambulatory Diallo Beauchamp MD [facility]: [facility] Start: 07-12-2023 End: 07-13-2023 ambulatory Diallo Beauchamp MD Facility:[facility] Start: 06-14-2023 End: 06-15-2023 ambulatory Diallo Beauchamp MD Facility:[facility] Start: 03-11-2023 End: 03-11-2023 ambulatory Rubén Geiger Facility:[facility] Start: 12-06-2022 End: 12-06-[address] VENUS MENDEZ . Facility: Start: 12-05-2022 Encounter for genera l adult medical examination without abnormal findings DR VENUS MENDEZ . [facility] Start: 12-01-2022 End: 12-02-[address] VENUS MENDEZ . Facility: Start: 12-01-2022 End: 12-02-2022 Encounter for general adult medical examination without abnormal findings DR VENUS MENDEZ . Facility: Start: 07-10-2022 End: 07-11-[address] VENUS MENDEZ . Facility: Start: 03-26-2022 End: 03-26-[address] VENUS MENDEZ . Facility: Start: 03-13-2022 End: 03-14-[address] VENUS MENDEZ . Facility: Start: 02-25-2022 End: 02-25-2022 Patient encounter procedure Viola Grullon [facility] Start: 01-04-2022 End: 01-05-[address] VENUS MENDEZ . Facility: Start: 01-30-2019 End: 02-01-2019 Evaluation and management of inpatient PROVIDER UNKNOWN Facility:[facility] Start: 08-17-2018 End: 08-18-2018 Patient encounter procedure PROVIDER UNKNOWN Facility:[facility] Procedures Date Procedure Procedure Detail Performing Clinician Start: 12-01-[address] FRANKLIN MENDEZ . Comment on above: Performed By: #### P [facility] #### [facility] [address] [place] [address] Dr. Shabnam Rae Start: 01-30-2019 FUSION CERV JT W INT BD FUS DEV, ANT APPR A COL, OPEN [facility] Start: 01-30-2019 REMOVAL OF INT FIX F ROM CERVCAL VERTEBRA, OPEN APPROACH [facility] Start: 01-23-2019 Antibody screen PROVIDE R UNKNOWN Comment on above: Performed By: #### 5 7307, 25731 #### [facility] [address] Start: 08-17-2018 ANESTH SPINE CORD SURGERY SANDRA PARDOSHANNAN Start: 08-17-2018 INSERT SPINE FIXATIO N DEVICE [facility] Start: 08-17-2018 NECK SPINE FUSE\T\RE MOV BEL C2 [facility] Start: 08-17-2018 SP BONE ALGRFT STRUC T ADD-ON [facility] Start: 08-02-2018 Antibody screen PROVIDE R UNKNOWN Comment on above: Order Comment: 2 uni ts 2 units 2 units 2 units 2 units Performed By: #### 6 2586 #### [facility] [address] Colonoscopy Viola Grullon Hemorrhoids (disorder) Viola Lue Hernia of abdominal cavity (disorder) Viola Thrashere Tonsillectomy Viola Grullon Payers Date Payer Category Payer Self-pay 2022 Medicaid [id number] 2022 Unknown 1970 Unknown [id number] 2.16.8 [id number] 1970 Unknown [id number] 2.16.8 [id number] 1970 Unknown [id number] 2.16.84 0.1.122682.3.579.2.593 1970 Unknown [id number] 2.16.84 0.1.279294.3.579.2.593 1970 Unknown [id number] 2.16.84 0.1.265292.3.579.2.593 1970 Unknown [id number] 2.16.84 0.1.074130.3.579.2.593 1970 Unknown [id number] 2.16.84 0.1.057209.3.579.2.593 1970 Unknown [id number] 2.16.84 0.1.574855.3.579.2.593 1970 Unknown [id number] 2.16.84 0.1.806872.3.579.2.1259 1970 Unknown [id number] 2.16. 840.1.933460.3.579.2.196 1970 Unknown [id number] 2.16. 840.1.587366.3.579.2.196 1970 Unknown [id number] 2.16. 840.1.325438.3.579.2.196 1970 Unknown [id number] 2.16. 840.1.719075.3.579.2.196 1959 Unknown [id number] Unknown [id number] Unknown [id number] 2.16.8 [id number] Social History Date Type Detail Facility Tobacco smoking status No Smoking Status Entered [facility] Sex Assigned At Male [facility] Functional Status Date Assessment Result Facility 02-25-2022 Functional Status N/A [facility] Progress note 06-09-2023 Note Date & Type Note Facility 06-09-2023 Note [facility] Continue GDMT- Diuretic therapy Monitor daily weights, I&O, fluid restriction 1.5-2L/day, renal function and electrolytes- [facility] Clinical Note 03-26-2022 Note Date [...] authenticated by: ALVINA CAICEDO Date: 2022-03-26 10:47 [facility] Discharge instructions 02-25-2022 Note Date & Type [...] Watch the hydrocele for any changes. Take bjyo-qja-vchucvp and prescription medicines only as told by [...] 02/17/2011 Document Revised: 09/10/2018 Document Reviewed: 09/10/2018 [employer] Patient Education 2020 [employer]. Follow Up Care 01/28/2022 10:36:35 With:Mitchel DELGADO, JOSHUA GregorioL, URO Address: When: Unknown [facility] Evaluation + Plan note Note Date & Type Note Facility Evaluation + Plan note No data available for this section [facility] Progress note Note Date & Type Note Facility Progress note No data available for this section [facility] Summary Purpose Family History No Family History [...] Records Found Hospital Course Note MR#: [id number] [facility] Pt. Name: Matty Garces Admitted: 01/30/2019 Discharged: [...] and content) DATE CREATED AUTHOR 07/19/2019 [facility] DATE CREATED AUTHOR AUTHOR'S ORGANIZ ATION 02/27/2022 [facility] DATE CREATED AUTHOR AUTHOR'S ORGANIZ ATION 12/08/2022 [facility] DATE CREATED AUTHOR AUTHOR'S ORGANIZ ATION 03/17/2023 [facility] DATE CREATED AUTHOR AUTHOR'S ORGANIZ ATION 06/17/2023 [facility] DATE CREATED AUTHOR AUTHOR'S ORGANIZ ATION 09/27/2023 [facility] DATE CREATED AUTHOR AUTHOR'S ORGANIZ ATION 11/19/2023 [facility] (unrecognized sect ion and content) Personnel Name: Venus Mendez MD Address: [address] [place] [address] FOR RECORDS PERTAINING TO PATIENTS WHO ARE [...] BE BASED ON THE PRIMARY CLINICAL RECORDS. [facility] [employer] [facility]. provides no warranty or guarantee of the accuracy or completeness of information in this document.
--- NOTE | 2023-11-29 13:09 | P.CN_ITS ---
Consult Note: HPI Data of Consult Patient: known to practice within the last 3 years Consult date: 11/29/23 Requesting Physician: Diallo Beauchamp MD Primary Care Provider: Caden Mendez MD Consult Narrative Reason for consult: bilateral knee pain Narrative: 53yom who presents for bilateral knee injection. Continues to have significant bilateral knee pain. 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) Anxiety ?F41.9 - Anxiety disorder, unspecified (ICD-10) Upper back pain ?M54.9 - Dorsalgia, unspecified (ICD-10) Low back pain ?M54.50 - Low back pain, unspecified (ICD-10) TMJ (dislocation of temporomandibular joint) ?S03.00XA - Dislocation of jaw, unspecified side, initial encounter (ICD-10) Obesity ?E66.9 - Obesity, unspecified (ICD-10) Sleep apnea ?G47.30 - Sleep apnea, unspecified (ICD-10) Hypertension ?I10 - Essential (primary) hypertension (ICD-10) Surgical History History of fusion of cervical spine ?Z98.1 - Arthrodesis status (ICD-10) H/O inguinal hernia repair ?Z98.890 - Other specified postprocedural states (ICD-10) ?Z87.19 - Personal history of other diseases of the digestive system (ICD-10) H/O repair of rotator cuff ?Z98.890 - Other specified postprocedural states (ICD-10) History of uvulopalatopharyngoplasty ?Z98.890 - Other specified postprocedural states (ICD-10) Meds Home Medications and Allergies Home Medications Medication Instructions Recorded Confirmed Type carvedilol 25 mg tablet 25 mg PO BID 06/14/23 10/18/23 History citalopram 20 mg tablet 20 mg PO DAILY 06/14/23 10/18/23 History clonazepam 0.5 mg tablet 0.5 mg PO DAILY 06/14/23 09/04/23 History doxazosin 8 mg tablet 8 mg PO DAILY 06/14/23 10/18/23 History doxepin 10 mg capsule 10 mg PO DAILY PRN itching 06/14/23 09/04/23 History furosemide 20 mg tablet 20 mg PO DAILY 06/14/23 10/18/23 History gabapentin 600 mg tablet 600 mg PO BID 06/14/23 10/18/23 History glycopyrrolate 1 mg tablet 1 mg PO BID 06/14/23 10/18/23 History hydroxyzine pamoate 25 mg capsule 25 mg PO QPM 06/14/23 10/18/23 History meclizine 25 mg tablet 25 mg PO DAILY 06/14/23 10/18/23 History pantoprazole 40 mg tablet,delayed 40 mg PO DAILY 06/14/23 10/18/23 History release sildenafil 25 mg tablet 25 mg PO DAILY 06/14/23 10/18/23 History simvastatin 20 mg tablet 20 mg PO DAILY 06/14/23 10/18/23 History testosterone cypionate 100 mg/mL 100 mg subcut .EVERY 2 WEEKS 06/14/23 10/18/23 History intramuscular oil tizanidine 4 mg capsule 4 mg PO .EVERY NIGHT 06/14/23 10/18/23 History etodolac 400 mg tablet (Lodine) 400 mg PO Q12H PRN pain #30 tabs 08/11/23 10/18/23 Rx aspirin 81 mg tablet,delayed 81 mg PO DAILY 09/04/23 10/18/23 History release (Miguel Angel Low Dose Aspirin) ibuprofen 800 mg tablet 800 mg PO Q8H PRN pain #20 tabs 09/04/23 10/18/23 Rx modafinil 200 mg tablet 200 mg PO DAILY 09/04/23 10/18/23 History potassium chloride 10 mEq 10 meq PO Q12H 09/04/23 10/18/23 History tablet,extended release Allergies Allergy/AdvReac Type Severity Reaction Status Date / Time No Known Drug Allergies Allergy Verified 10/18/23 07:50 Exam Narrative Exam Narrative: Psych-alert and oriented x 3.? Attentive and appropriate, constitutionally normal, displays normal mood and affect per situation.? There are no obvious deficits in memory, reasoning, or intellect. Extremities-lower extremities are warm with minimal edema and palpable pulses. Knee-examination of the bilateral knee reveals tenderness to palpation over the superior, inferior, lateral, and medial aspect of the knee.? Some swelling is noted without erythema. Pain is elicited with flexion and extension of the knee both actively and passively.? Some grinding is noted with these motions.? There is no notable ligamental laxity or instability.? Coordination remains intact.? Gait remains antalgic. Assessment and Plan Assessment and Plan (1) Bilateral knee pain: Qualifiers: Chronicity: chronic Qualified Code(s): M25.561 - Pain in right knee; M25.562 - Pain in left knee; G89.29 - Other chronic pain Plan 53yom who presents for bilateral knee injection, previously ordered at [facility]. Continues to have bilateral knee pain. Risks and benefits reviewed, questions answered. We agree to proceed. Procedure: Bilateral knee injection Medications: Bupivacaine 0.25% 4cc, kenalog 40mg x2 I explained the details of the procedure to the patient including the risks, benefits and alternatives. We had an informed discussion and the patient verbalized understanding and signed the consent form. All questions were answered appropriately.? A time out was performed.? After obtaining a comfortable seated position, the right knee was prepped with alcohol x3. A syringe containing the above me dication was attached to a 25 guage, 1.5 inch needle under strict aseptic technique. The lateral tibial plateau was palpated.? The needle was then advanced through the subcutaneous tissue in a medial and superior direction towards the joint space.? The contents of the syringe were gently injected without any resistance. The needle was removed and pressure was applied to the injection site to decrease the incidence of ecchymosis and hematoma formation. The same procedure was then completed on the left side.? A sterile bandage was applied.
== END 2023-11-29 12:01 | disposition home or self-care (01) ==
LOC: PM 12:00
PROVIDERS: PCP Family Medicine; Visit Provider Anesthesiology
DX: M25.561 Pain in right knee (principal); M25.562 Pain in left knee; G89.29 Other chronic pain
CPT/HCPCS: 20610

== ENCOUNTER 2023-12-10 11:00 | Outpatient (OUT) | payer MEDICAID, SELFPAY ==
--- NOTE | 2023-12-10 | XR_ITS ---
The [address] [address] Patient Name: MATTY WADE MRN: [id number] date: 1970 Sex: M Assigned Patient Location: Current Patient Location: Accession/Order Number: [id number] Exam Date: 12/10/2023 11:00 Report Date: 12/11/2023 05:54 At the request of: CLARISA BOJORQUEZ Procedure: XR foot RT min 3V PROCEDURE: XR foot RT min 3V HISTORY: RIGHT FOOT PAIN ; wound plantar surface first toe COMPARISON: XR foot right 10/29/2023 FINDINGS: BONES:Nondisplaced fourth proximal phalanx fracture with evidence of early bone healing. Previously seen tiny foreign bodies within soft tissues medial to the first metatarsophalangeal joint are no longer present. Persistent wire fragment, possibly stable, within soft tissues projecting between second and third metatarsals. SOFT TISSUES:See above. EFFUSION:None visible. OTHER: Negative. XR/XR foot RT min 3V IMPRESSION: 1. Normal alignment and early bone healing changes of fourth proximal phalanx fracture. 2. Persistent foreign body within mid foot. 2. No appreciable wound or findings to suggest osteomyelitis of the first toe. Electronically authenticated by: SHY MISTRY Date: 12/11/2023 05:54
--- OUTSIDE RECORDS SUMMARY | 2023-12-10 11:12 | XMS_ITS | CCD ---
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 Name Role Phone UNKNOWN, PROVIDER Admitting Unavailable UNKNOWN, PROVIDER Attending Unavailable VENUS MENDEZ Referring Unavailable VENUS MENDEZ Primary Care Unavailable [place] Procedure Practitioner Unavailab le UNKNOWN, PROVIDER Surgeon Unavailable [place] Procedure Practitioner Unavailab le SANDRA BILL Surgeon Unavailable UNKNOWN, PROVIDER Admitting Unavailable UNKNOWN, PROVIDER Attending Unavailable VENUS MENDEZ Referring Unavailable VENUS MENDEZ Primary Care Unavailable [place] Procedure Practitioner Unavailab le UNKNOWN, PROVIDER Surgeon Unavailable Venus Mendez Primary Care Physician ANDREA ., DR DONOVAN Admitting Unavailable HOY ., DR DONOVAN Attending Unavailable HOY ., DR DONOVAN Primary Care Unavailable HOY ., DR DONOVAN Consulting Unavailable HOY ., DR DONOVAN Admitting Unavailable HOY ., DR DONOVAN Attending Unavailable HOY ., DR ODNOVAN Primary Care Unavailable HOY ., DR DONOVAN Consulting Unavailable HOY ., DR DONOVAN Admitting Unavailable HOY ., DR DONOVAN Attending Unavailable HOY ., DR DONOVAN Primary Care Unavailable HOY ., DR DONOVAN Consulting Unavailable HOY ., DR DONOVAN Primary Care Unavailable AGA, DR JEWELL Bloom Admitting Unavailabl e AGA, DR JEWELL Bloom Attending Unavailabl e AGA, DR JEWELL Bloom Consulting Unavailabl e SASCHA, DR ALVINA Martinez Consulting Unavailable HOY ., [...] Unavailable SASCHA, DR ALVINA Martinez Consulting Unavailable MORENA ., DR ROBERTS Consulting Unavailable MARNIE RICHEY Consulting Unavailable MANUEL HOUGH Consulting Unavailable DOLORES, MAYRA Consulting Unavailable Rubén Geiger. Attending Unavailable Rubén Geiger Admitting Unavailable Venus Mendez Primary Care Unavailable RUBÉN GEIGER Attending Unavailable Gieditis , Diallo Berkowitz Attending Unavailable Giedraitis , Diallo Berkowitz Attending Unavailable Giedraitis , Diallo Berkowitz Attending Unavailable Giedraitis , Andisai Berkowitz Attending Unavailable Giedraitis , Andisai Berkowitz Attending Unavailable Allergies Allergy Classification Reported Allergen(s) Allergy Type Date of Onset Reaction(s) Facility (1 source) Aspartame Drug Allergy 08-17-20 18 [facility] Repository (1 source) avoid; Translations: [Unknown] Propensity to adverse reactions (disorder) 08-17-20 [facility] (1 source) vitamin B12; Translations: [cyanocobalamin] Drug Allergy Unknown (qualifier value) [facility] (1 source) Acetaminophen / HYDROcodone Drug Allergy [facility] (1 source) Corticosteroids Drug allergy (disorder) [facility] (1 source) fentaNYL Drug Allergy [facility] (1 source) Misc-Food; Translations: [Misc-Food] Food allergy (disorder) [facility] (1 source) Corticosteroids Drug allergy (disorder) 05-14-20 [facility] Repository Medications Current Medications Medication Drug [...] tablet (1 source) alpha-Adrenergic Jorge L Start: 06-16-2022 doxazosin 8 mg oral tablet Refills(s) 0 [...] Onset: 3 Chronic Other aftercare (1 source) ocean transportation intermediary (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; Translations: [HOME CARE LIAISON 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 ASPIRIN] Onset: 3 Episodic Other aftercare (1 source) Other intermediate (current) drug therapy; Translations: [OTH [facility] CURRENT DRUG THERAPY] Onset: 3 Episodic Other [...] spine 5V*on 02-12 XR cervical spine 5V* [facility] Main [place] [id number] XRay Report Signed Patient: Matty Garces MR#: [id number] 97 : 1970 Acct:[id number] Age/Sex: 52 / M ADM Date: 03/11/23 Loc: ICXD Room: Type: [facility] Attending Dr: Rubén Geiger MD Copies to: [...] Crow Contreras M.D.03/11/2023 3:48 PM Dictation Location: [place] [address] Transcribed By: [facility] 03/11/23 1548 Dictated By: Crow Contreras [...] ANGEL SAID Date: 2022-12-06 06:[address] [facility] [address] FACIAL BONES WO CONon CT [...] ANGEL SAID Date: 2022-12-06 06:[address] [facility] [address] HEAD WO CONon 12-06-2022 CT [...] ANGEL SAID Date: 2022-12-06 06:39 Normal [facility] XR ELBOW RT MIN 3 VIEWSon XR ELBOW RT MIN 3 VIEWS Exam: Radiographs: XR ELBOW RT MIN 3 VIEWS Reason for exam: Elbow pain Comparison: None IMPRESSION: Right elbow degenerative changes. Olecranon spur. Remainder of the right elbow is unremarkable. Electronically authenticated by: MICHAEL CASANOVA Date: 2022-12-06 07:22 Normal [facility] XR FOREARM RT 2Von 03-26-202 3 XR FOREARM RT 2V Exam: Radiographs: XR FOREARM RT 2V Reason for exam: Forearm pain Comparison: None IMPRESSION: Mild degenerative changes in the right elbow and wrist. Right forearm is otherwise unremarkable. Electronically authenticated by: MICHAEL CASANOVA Date: 2022-12-06 08:07 Normal [facility] PSA, FREE AND TOTAL RATIOon 12-03-2022 % Free PSA 9.0 % Normal [facility] Comment on above: Result [...] men. Performed By: #### P SAFREE #### [facility] [address] [place] [address] [address] Shabnam Rae Prostate specific Ag [Mass/Vol] 5.9 ng/mL Critically high 0.0-4.0 [facility] Comment on above: Result Comment: Roch lucy ECLIA methodology. . According to the [place] [employer], Serum PSA should decrease and [...] disease. Performed By: #### P SAFREE #### [facility] [address] [place] [address] [address] Shabnam aRe PSA, Free 0.53 ng/mL Normal N/A [facility] Comment on above: Result Comment: Roch e ECLIA methodology. Performed By: #### P SAFREE #### [facility] [address] [place] [address] [address] Shabnam Rae INSULINon 12-02-2022 Insulin 20.2 uIU/mL Normal 2.6-24.9 [facility] Comment on above: Performed By: #### P SASC #### [facility] [address] [place] [address] Dr. Shabnam Rae TESTOSTERONE, TOTALon 2022 Testosterone [Mass/Vol] 256 ng/dL Critically low 264-916 [facility] Comment on above: Result Comment: Adul t male reference interval is based on a population of healthy nonobese males (BMI <30) between 19 and 39 years old. Dima et.al. JCEM 2017,102;6798-8966. PMID: 94215636. Performed By: #### P SASC #### [facility] [address] [place] [address] Dr. Shabnam Rae CBC AUTO DIFFon 12-01-2022 BASO # 0.1 103/ul Normal 0.0-0.1 [facility] Comment on above: Performed By: #### P SASC #### [facility] [address] [place] [address] Dr. Shabnam Rae Basophils/100 WBC (Bld) 1.0 % Normal 0.2-2.0 [facility] Comment on above: Performed By: #### P SASC #### [facility] [address] [place] [address] Dr. Shabnam Rae EO # 0.1 103/ul Normal 0.0-0.7 [facility] Comment on above: Performed By: #### P SASC #### [facility] [address] [place] [address] Dr. Shabnam Rae Eosinophils/100 WBC (Bld) 1.8 % Normal 0.9-7.0 [facility] Comment on above: Performed By: #### P SASC #### [facility] [address] [place] [address] Dr. Shabnam Rae Erythrocyte distribution width (RBC) [Ratio] 14.8 % Normal 11.0-15.0 [facility] Comment on above: Performed By: #### P SASC #### [facility] [address] [place] [address] [address] Shabnam Rae Hematocrit (Bld) [Volume fraction] 49.9 % Normal 42.0-54.0 [facility] Comment on above: Performed By: #### P SASC #### [facility] [address] [place] [address] [address] Shabnam Rae Hemoglobin (Bld) [Mass/Vol] 16.0 g/dL Normal 14.0-18.0 [facility] Comment on above: Performed By: #### P SASC #### [facility] [address] [place] [address] [address] Shabnam Rae IG # 0.04 10e3/ul Critically high 0.00-0.03 [facility] Comment on above: Performed By: #### P SASC #### [facility] [address] [place] [address] Dr. Shabnam Rae IG % 0.6 % Critically high 0.0-0.5 [facility] Comment on above: Performed By: #### P SASC #### [facility] [address] [place] [address] [address] Shabnam Rae LYMPH # 1.0 103/ul Critically low 1.2-3.8 [facility] Comment on above: Performed By: #### P SASC #### [facility] [address] [place] [address] [address] Shabnam Rae Lymphocytes/100 WBC (Bld) 16.2 % Critically low 20.5-60.0 [facility] Comment on above: Performed By: #### P SASC #### [facility] [address] [place] [address] [address] Shabnam Rae MANUAL DIFF REQ NO Normal [facility] Comment on above: Performed By: #### P SASC #### [facility] [address] [place] [address] [address] Shabnam Rae MCH (RBC) [Entitic mass] 27.7 pg Normal 25.9-34.0 [facility] Comment on above: Performed By: #### P SASC #### [facility] [address] [place] [address] [address] Shabnam Rae MCHC (RBC) [Mass/Vol] 32.1 g/dL Normal 29.9-35.2 [facility] Comment on above: Performed By: #### P SASC #### [facility] [address] [place] [address] [address] Shabnam Rae MCV (RBC) [Entitic vol] 86.3 fL Normal 80.0-94.0 [facility] Comment on above: Performed By: #### P SASC #### [facility] [address] [place] [address] [address] Shabnam Rae MONO # 0.5 103/ul Normal 0.3-0.8 [facility] Comment on above: Performed By: #### P SASC #### [facility] [address] [place] [address] Dr. Shabnam Rae Monocytes/100 WBC (Bld) 7.6 % Normal 1.7-12.0 [facility] Comment on above: Performed By: #### P SASC #### [facility] [address] [place] [address] [address] Shabnam Rae NEUT # 4.6 103/ul Normal 1.4-6.5 [facility] Comment on above: Performed By: #### P SASC #### [facility] [address] [place] [address] [address] Shabnam Rae Neutrophils/100 WBC (Bld) 72.8 % Normal 43.0-75.0 [facility] Comment on above: Performed By: #### P SASC #### [facility] [address] [place] [address] [address] Shabnam Rae Platelet mean volume (Bld) [Entitic vol] 9.8 fL Normal 9.5-13.5 [facility] Comment on above: Performed By: #### P SASC #### [facility] [address] [place] [address] [address] Shabnam Rae PLT 203 103/ul Normal 150-450 [facility] Comment on above: Performed By: #### P SASC #### [facility] [address] [place] [address] [address] Shabnam Rae RBC 5.78 106/ul Normal 4.70-6.10 [facility] Comment on above: Performed By: #### P SASC #### [facility] [address] [place] [address] Dr. Shabnam Rae WBC 6.3 103/ul Normal 4.0-11.0 [facility] Comment on above: Performed By: #### P SASC #### [facility] [address] [place] [address] Dr. Shabnam Rea FREE THYROXINE INDEX T7on FTI 2.05 Normal 1.30-4.50 [facility] Comment on above: Performed By: #### T SH, CMP, LIPID, T7, URIC #### [facility] [address] [place] [address] Dr. Shabnam Rae T3U 33.0 % Normal 33.0-40.0 [facility] Comment on above: Performed By: #### T SH, CMP, LIPID, T7, URIC #### [facility] [address] [place] [address] Dr. Shabnam Rae T4 [Mass/Vol] 6.20 ug/dL Normal 4.50-12.10 [facility] Comment on above: Performed By: #### T SH, CMP, LIPID, T7, URIC #### [facility] [address] [place] [address] Dr. Shabnam Rae GLYCOHEMOGLOBIN A1Con 2022 ADA RECOMMENDATION SEE BELOW Normal [facility] Comment on above: Result Comment: ADA RECOMMENDED LIMIT 4.0 - 6.0 ADA THERAPEUTIC TARGET < 7.0 ACTION SUGGESTED > 7.0 Performed By: #### P SASC #### [facility] [address] [place] [address] Dr. Shabnam Rae Glucose [Mass/Vol] 114 mg/dL Normal [facility] Comment on above: Performed By: #### P SASC #### [facility] [address] [place] [address] Dr. Shabnam Rae HbA1c (Bld) [Mass fraction] 5.6 % Normal 4.5-6.2 [facility] Comment on above: Performed By: #### P SASC #### [facility] [address] [place] [address] Dr. Shabnam Rae LIPID PROFILEon 12-01-2022 CHOL-HDL RATIO NORM SEE BELOW Normal [facility] Comment on above: Result Comment: 3.3 - 4.4 LOW RISK 4.4 - 7.1 AVERAGE RISK 7.1 - 11.0 MODERATE RISK >11.0 HIGH RISK Performed By: #### T SH, CMP, LIPID, T7, URIC #### [facility] [address] [place] [address] Dr. Shabnam Rae Cholesterol [Mass/Vol] 176 mg/dL Normal <=200 [facility] Comment on above: Performed By: #### T SH, CMP, LIPID, T7, URIC #### [facility] [address] [place] [address] Dr. Shabnam Rae Cholesterol in HDL [Mass/Vol] 48 mg/dL Normal 40-60 [facility] Comment on above: Performed By: #### T SH, CMP, LIPID, T7, URIC #### [facility] [address] [place] [address] Dr. Shabnam Rae Cholesterol in LDL [Mass/Vol] 108.2 mg/dL Normal [facility] Comment on above: Performed By: #### T SH, CMP, LIPID, T7, URIC #### [facility] [address] [place] [address] Dr. Shabnam Rae Cholesterol.total/Ch olesterol in HDL [Mass ratio] 3.7 {ratio} Normal [facility] Comment on above: Performed By: #### T SH, CMP, LIPID, T7, URIC #### [facility] [address] [place] [address] Dr. Shabnam Rae HDL NORMAL > or = 60 mg/dl - LOW CARDIOVASCULAR RISK <40 mg/dl - HIGH CARDIOVASCULAR RISK Normal [facility] Comment on above: Performed By: #### T SH, CMP, LIPID, T7, URIC #### [facility] [address] [place], [place] [id number] Dr. Shabnam Rae LDL CALC NORMAL SEE BELOW Normal [facility] Comment on above: Result Comment: <100 mg/dl OPTIMAL 100 - 129 mg/dl NEAR OR ABOVE OPTIMAL 130 - 159 mg/dl BORDERLINE HIGH 160 - 189 mg/dl HIGH >190 mg/dl VERY HIGH Performed By: #### T SH, CMP, LIPID, T7, URIC #### [facility] [address] [address] [address] Shabnam Rae Triglyceride [Mass/Vol] 99 mg/dL Normal <=150 [facility] Comment on above: Performed By: #### T SH, CMP, LIPID, T7, URIC #### [facility] [address] [place] [address] [address] Shabnam Rae VLDL CALC 19.8 mg/dL Normal [facility] Comment on above: Performed By: #### T SH, CMP, LIPID, T7, URIC #### [facility] [address] [place] [address] Dr. Shabnam Rae PROF 14(COMP METB)on 023 Albumin [Mass/Vol] 4.1 g/dL Normal 3.4-5.[address] [facility] Comment on above: Performed By: #### T SH, CMP, LIPID, T7, URIC #### [facility] [address] [place] [address] Dr. Shabnam Rae Albumin/Globulin [Mass ratio] 1.1 {ratio} Normal [facility] Comment on above: Performed By: #### T SH, CMP, LIPID, T7, URIC #### [facility] [address] [place] [address] Dr. Shabnam Rae ALP [Catalytic activity/Vol] 101 U/L Normal 46-116 [facility] Comment on above: Performed By: #### T SH, CMP, LIPID, T7, URIC #### [facility] [address] [place] [address] Dr. Shabnam Rae ALT [Catalytic activity/Vol] 26 U/L Normal 16-63 [facility] Comment on above: Performed By: #### T SH, CMP, LIPID, T7, URIC #### [facility] [address] [place] [address] [address] Shabnam Rae Anion gap [Moles/Vol] 10.1 mmol/L Normal [facility] Comment on above: Performed By: #### T SH, CMP, LIPID, T7, URIC #### [facility] [address] [place] [address] Dr. Shabnam Rae AST [Catalytic activity/Vol] 19 U/L Normal 15-37 [facility] Comment on above: Performed By: #### T SH, CMP, LIPID, T7, URIC #### [facility] [address] [place] [address] [address] Shabnam Rae Bilirubin [Mass/Vol] 0.8 mg/dL Normal 0.2-1.0 [facility] Comment on above: Performed By: #### T SH, CMP, LIPID, T7, URIC #### [facility] [address] [place] [address] Dr. Shabnam Rae Calcium [Mass/Vol] 9.5 mg/dL Normal 8.5-10.[address] [facility] Comment on above: Performed By: #### T SH, CMP, LIPID, T7, URIC #### [facility] [address] [address] [address] Shabnam Rae Chloride [Moles/Vol] 102 mmol/L Normal 98-107 [facility] Comment on above: Performed By: #### T SH, CMP, LIPID, T7, URIC #### [facility] [address] [address] [address] Shabnam Rae CO2 [Moles/Vol] 32.4 mmol/L Critically high 21.0-32.0 [facility] Comment on above: Performed By: #### T SH, CMP, LIPID, T7, URIC #### [facility] [address] [place] [address] Dr. Shabnam Rae Creatinine [Mass/Vol] 1.00 mg/dL Normal 0.70-1.30 [facility] Comment on above: Performed By: #### T SH, CMP, LIPID, T7, URIC #### [facility] [address] [place] [address] Dr. Shabnam Rae EGFR-AF CHADIAN >60 Normal >=60 [facility] Comment on above: Performed By: #### T SH, CMP, LIPID, T7, URIC #### [facility] [address] [address] [address] Shabnam Rae EGFR-NON AF CHADIAN >60 Normal >=60 [facility] Comment on above: Performed By: #### T SH, CMP, LIPID, T7, URIC #### [facility] [address] [address] [address] Shabnam Rae Globulin (S) [Mass/Vol] 3.8 g/dL Normal [facility] Comment on above: Performed By: #### T SH, CMP, LIPID, T7, URIC #### [facility] [address] [address] [address] Shabnam Rae Glucose [Mass/Vol] 94 mg/dL Normal 74-106 [facility] Comment on above: Performed By: #### T SH, CMP, LIPID, T7, URIC #### [facility] [address] [place] [address] Dr. Shabnam aRe Potassium [Moles/Vol] 3.5 mmol/L Normal 3.5-5.1 [facility] Comment on above: Performed By: #### T SH, CMP, LIPID, T7, URIC #### [facility] [address] [place] [address] Dr. Shabnam Rae Protein [Mass/Vol] 7.9 g/dL Normal 6.4-8.2 [facility] Comment on above: Performed By: #### T SH, CMP, LIPID, T7, URIC #### [facility] [address] [address] [address] Shabnam Rae Sodium [Moles/Vol] 141 mmol/L Normal 136-145 [facility] Comment on above: Performed By: #### T SH, CMP, LIPID, T7, URIC #### [facility] [address] [place] [address] Dr. Shabnam Rae Urea nitrogen [Mass/Vol] 15.0 mg/dL Normal 7.0-18.0 [facility] Comment on above: Performed By: #### T SH, CMP, LIPID, T7, URIC #### [facility] [address] [id number] Shabnam Rae Urea nitrogen/Creatinine [Mass ratio] 15.0 mg/mg Normal [facility] Comment on above: Performed By: #### T SH, CMP, LIPID, T7, URIC #### [facility] [address] [id number] Shabnam Rae TSHon 12-01-2022 TSH 1.504 uIU/mL Normal 0.358-3.740 [facility] Comment on above: Performed By: #### T SH, CMP, LIPID, T7, URIC #### [facility] [address] [id number] Shabnam Rae URIC ACID SERUMon 12-01-2022 Urate [Mass/Vol] 6.9 mg/dL Normal 3.5-7.2 [facility] Comment on above: Performed By: #### T SH, CMP, LIPID, T7, URIC #### [facility] [id number] Shabnam Rae TESTOSTERONE, TOTALon 2021 Testosterone [Mass/Vol] 244 ng/dL Critically low 264-916 [facility] Comment on above: Result Comment: Adul t male reference interval is based on a population of healthy nonobese males (BMI <30) between 19 and 39 years old. Dima, et.al. JCEM 2017,102;6411-8676. PMID: 72243265. Performed By: #### P SAFREE #### [facility] [address] [address] [address] Shabnam Rae TESTOSTERONE, FREE,DIRECT, T OTALon 03-16-2022 Free Testosterone(Direct) 2.1 pg/mL Critically low 7.2-24.0 [facility] Comment on above: Result Comment: Perf ormed at: BN Performed By: #### C VDTBH #### [facility] [id number] Shabnam Rae Testosterone [Mass/Vol] 252 ng/dL Critically low 264-916 [facility] Comment on above: Result Comment: Adul t male reference interval is based on a population of healthy nonobese males (BMI <30) between 19 and 39 years old. adia Ch.al. JCEM 2017,102;9668-9397. PMID: 00095332. Performed at: CB Performed By: #### [facility] #### [facility] [address] [address] [address] Shabnam Rae Formson 02-26-2022 Forms [id number] 7#1.00CD:127 Normal [facility] Screenson 02-26-2022 Screens [id number] 7#1.00CD:127 Normal [facility] Screens [id number] #1.00CD:127 Normal [facility] Urology Office/Clinic Noteon 02-26-2022 Urology Office/Clinic Note [...] qualifying data (more content not included)... Normal [facility] Comment on above: Result Comment: Elec tronically Signed By: Viola Grullon MD\.br\Date and Time Signed: 02/26/22 00:20 EDT\.br\Electronically Co-Signed By: Helen Leung\.br\Date and Time Co-Signed: 02/25/22 11:16 EDT Ambulatory Visit Summaryon 0 02-25-2022 Ambulatory Visit Summary MATTY GARCES :1970 Visit Date:02/25/2022 Ambulatory Visit Instructions Your Diagnosis Hydrocele Varicocele BPH without urinary obstruction Tests Performed Urnls Dip Stick Auto w/o Microscopy POC 17897 Your Care Team Attending Physician - Viola Grullon MD Primary Care Physician - Andrea DELGADO, Venus Procedures Performed Colonoscopy, Hemorrhoid, Hernia, [...] Urnls Dip Stick Auto w/o Microscopy POC 32273 (02/25/2022) Bilirubin Urine Dipstick - Negative Blood Urine Dipstick - Negative Glucose Urine Dipstick - Negative Ketones Urine Dipstick - Negative Leukocytes Urine Dipstick - Negative Nitrite Urine Dipstick - Negative Protein Urine Dipstick - Negative Specific [place] Urine Dipstick - >=1.030 Urine Appearance Urine [...] the hydrocele for any changes. ? Take lecn-bxd-qumukzu and prescription medicines only as told by [...] intended t (more content not included)... Normal [facility] Patient Educationon 02-26-20 Patient Education Urology Hydrocele, [...] the hydrocele for any changes. ? Take dbzd-pdd-rbdcuox and prescription medicines only as told by [...] 02/17/2011 Document Revised: 09/10/2018 Document Reviewed: 09/10/2018 [employer] Patient Education ? 2019 [employer]. [facility] ED Note-Physicianon 05-24-20 22 ED Note-Physician [id number]#1.00CD:127 Normal [facility] RAD - Ultrasound Reporton RAD - Ultrasound Report [id number] #1.00CD:127 Normal [facility] RAD - CT Reporton 02-02-2022 RAD - CT Report [id number] 55#1.00CD:127 Normal [facility] RAD - CT Report [id number] 75#1.00CD:127 Normal [facility] CBC AUTO DIFFon 01-05-2022 BASO # 0.0 103/ul Normal 0.0-0.1 [facility] Comment on above: Performed By: #### P SAFREE #### [facility] [address] [address] [address] Shabnam Rae Basophils/100 WBC (Bld) 0.6 % Normal 0.2-2.0 [facility] Comment on above: Performed By: #### P SAFREE #### [facility] [address] [address] [address] Shabnam Rae EO # 0.1 103/ul Normal 0.0-0.7 [facility] Comment on above: Performed By: #### P SAFREE #### [facility] [address] [address] [address] Shabnam Rae Eosinophils/100 WBC (Bld) 2.1 % Normal 0.9-7.0 [facility] Comment on above: Performed By: #### P SAFREE #### [facility] [address] [address] [address] Shabnam Rae Erythrocyte distribution width (RBC) [Ratio] 13.1 % Normal 11.0-15.0 [facility] Comment on above: Performed By: #### P SAFREE #### [facility] [address] [place] [address] Dr. Shabnam Rae Hematocrit (Bld) [Volume fraction] 43.1 % Normal 42.0-54.0 [facility] Comment on above: Performed By: #### P SAFREE #### [facility] [address] [address] [address] Shabnam Rae Hemoglobin (Bld) [Mass/Vol] 13.7 g/dL Critically low 14.0-18.0 [facility] Comment on above: Performed By: #### P SAFREE #### [facility] [address] [address] [address] Shabnam Rae IG # 0.04 10e3/ul Critically high 0.00-0.03 [facility] Comment on above: Performed By: #### P SAFREE #### [facility] [address] [address] [address] Shabnam Rae IG % 0.6 % Critically high 0.0-0.5 [facility] Comment on above: Performed By: #### P SAFREE #### [facility] [address] [address] [address] Shabnam Rae LYMPH # 0.9 103/ul Critically low 1.2-3.8 [facility] Comment on above: Performed By: #### P SAFREE #### [facility] [address] [address] [address] Shabnam Rae Lymphocytes/100 WBC (Bld) 13.1 % Critically low 20.5-60.0 [facility] Comment on above: Performed By: #### P SAFREE #### [facility] [address] [address] [address] Shabnam Rae MANUAL DIFF REQ NO Normal [facility] Comment on above: Performed By: #### P SAFREE #### [facility] [address] [address] [address] Shabnam Rae MCH (RBC) [Entitic mass] 29.5 pg Normal 25.9-34.0 [facility] Comment on above: Performed By: #### P SAFREE #### [facility] [address] [address] [address] Shabnam Rae MCHC (RBC) [Mass/Vol] 31.8 g/dL Normal 29.9-35.2 [facility] Comment on above: Performed By: #### P SAFREE #### [facility] [address] [address] [address] Shabnam Rae MCV (RBC) [Entitic vol] 92.9 fL Normal 80.0-94.0 [facility] Comment on above: Performed By: #### P SAFREE #### [facility] [address] [address] [address] Shabnam Rae MONO # 0.4 103/ul Normal 0.3-0.8 [facility] Comment on above: Performed By: #### P SAFREE #### [facility] [address] [address] [address] Shabnam Rae Monocytes/100 WBC (Bld) 5.4 % Normal 1.7-12.0 [facility] Comment on above: Performed By: #### P SAFREE #### [facility] [address] [place] [address] Dr. Shabnam Rae NEUT # 5.2 103/ul Normal 1.4-6.5 [facility] Comment on above: Performed By: #### P SAFREE #### [facility] [address] [place] [address] Dr. Shabnam Rae Neutrophils/100 WBC (Bld) 78.2 % Critically high 43.0-75.0 [facility] Comment on above: Performed By: #### P SAFREE #### [facility] [address] [address] [address] Shabnam Rae Platelet mean volume (Bld) [Entitic vol] 10.9 fL Normal 9.5-13.5 [facility] Comment on above: Performed By: #### P SAFREE #### [facility] [address] [address] [address] Shabnam Rae PLT 153 103/ul Normal 150-450 [facility] Comment on above: Performed By: #### P SAFREE #### [facility] [address] [place] [address] Dr. Shabnam Rae RBC 4.64 106/ul Critically low 4.70-6.10 [facility] Comment on above: Performed By: #### P SAFREE #### [facility] [address] [address] [address] Shabnam Rae WBC 6.6 103/ul Normal 4.0-11.0 [facility] Comment on above: Performed By: #### P SAFREE #### [facility] [address] [place] [address] Dr. Shabnam Rae CRPon 01-05-2022 CRP 0.9 mg/dL Normal <=1.0 [facility] Comment on above: Performed By: #### P SAFREE #### [facility] [address] [place] [address] Dr. Shabnam Rae PROF 14(COMP METB)on 022 Albumin [Mass/Vol] 3.6 g/dL Normal 3.4-5.[address] [facility] Comment on above: Performed By: #### P SAFREE #### [facility] [address] [place] [address] Dr. Shabnam Rae Albumin/Globulin [Mass ratio] 1.0 {ratio} Normal [facility] Comment on above: Performed By: #### P SAFREE #### [facility] [address] [place] [address] Dr. Shabnam Rae ALP [Catalytic activity/Vol] 114 U/L Normal 46-116 [facility] Comment on above: Performed By: #### P SAFREE #### [facility] [address] [address] [address] Shabnam Rae ALT [Catalytic activity/Vol] 26 U/L Normal 16-63 [facility] Comment on above: Performed By: #### P SAFREE #### [facility] [address] [address] [address] Shabnam Rae Anion gap [Moles/Vol] 9.3 mmol/L Normal [facility] Comment on above: Performed By: #### P SAFREE #### [facility] [address] [place] [address] Dr. Shabnam Rae AST [Catalytic activity/Vol] 19 U/L Normal 15-37 [facility] Comment on above: Performed By: #### P SAFREE #### [facility] [address] [address] [address] Shabnam Rae Bilirubin [Mass/Vol] 0.5 mg/dL Normal 0.2-1.0 [facility] Comment on above: Performed By: #### P SAFREE #### [facility] [address] [address] [address] Shabnam Rae Calcium [Mass/Vol] 8.9 mg/dL Normal 8.5-10.[address] [facility] Comment on above: Performed By: #### P SAFREE #### [facility] [address] [address] [address] Shabnam Rae Chloride [Moles/Vol] 106 mmol/L Normal 98-107 [facility] Comment on above: Performed By: #### P SAFREE #### [facility] [address] [place] [address] Dr. Shabnam Rae CO2 [Moles/Vol] 30.7 mmol/L Normal 21.0-32.0 [facility] Comment on above: Performed By: #### P SAFREE #### [facility] [address] [address] [address] Shabnam Rae Creatinine [Mass/Vol] 1.15 mg/dL Normal 0.70-1.30 [facility] Comment on above: Performed By: #### P SAFREE #### [facility] [address] [address] [address] Shabnam Rae EGFR-AF CHADIAN >60 Normal >=60 [facility] Comment on above: Performed By: #### P SAFREE #### [facility] [address] [address] [address] Shabnam Rae EGFR-NON AF CHADIAN >60 Normal >=60 [facility] Comment on above: Performed By: #### P SAFREE #### [facility] [address] [place] [address] Dr. Shabnam Rae Globulin (S) [Mass/Vol] 3.6 g/dL Normal [facility] Comment on above: Performed By: #### P SAFREE #### [facility] [address] [address] [address] Shabnam Rae Glucose [Mass/Vol] 117 mg/dL Critically high 74-106 [facility] Comment on above: Performed By: #### P SAFREE #### [facility] [address] [address] [address] Shabnam Rae Potassium [Moles/Vol] 4.0 mmol/L Normal 3.5-5.1 [facility] Comment on above: Performed By: #### P SAFREE #### [facility] [address] [address] [address] Shabnam Rae Protein [Mass/Vol] 7.2 g/dL Normal 6.1-8.[address] [facility] Comment on above: Performed By: #### P SAFREE #### [facility] [address] [place] [address] Dr. Shanbam Rae Sodium [Moles/Vol] 142 mmol/L Normal 136-[address] [facility] Comment on above: Performed By: #### P SAFREE #### [facility] [address] [address] [address] Shabnam Rae Urea nitrogen [Mass/Vol] 15.0 mg/dL Normal 7.0-18.0 [facility] Comment on above: Performed By: #### P SAFREE #### [facility] [address] [place] [address] Dr. Shabnam Rae Urea nitrogen/Creatinine [Mass ratio] 13.0 mg/mg Normal [facility] Comment on above: Performed By: #### P SAFREE #### [facility] [address] [place] [address] Dr. Shabnam Rae US SCROTUMon 01-05-2022 US [...] ALVINA CAICEDO Date: 2022-01-05 08:48 Normal [facility] CBC AUTO DIFFon 01-04-2022 BASO # 0.1 103/ul Normal 0.0-0.1 [facility] Comment on above: Performed By: #### C BC #### [facility] [address] [place] [address] Dr. Shabnam Rae Basophils/100 WBC (Bld) 0.8 % Normal 0.2-2.0 [facility] Comment on above: Performed By: #### C BC #### [facility] [address] [place] [address] Dr. Shabnam Rae EO # 0.1 103/ul Normal 0.0-0.7 [facility] Comment on above: Performed By: #### C BC #### [facility] [address] [place] [address] Dr. Shabnam Rae Eosinophils/100 WBC (Bld) 1.5 % Normal 0.9-7.0 [facility] Comment on above: Performed By: #### C BC #### [facility] [address] [place] [address] Dr. Shabnam Rae Erythrocyte distribution width (RBC) [Ratio] 12.8 % Normal 11.0-15.0 [facility] Comment on above: Performed By: #### C BC #### [facility] [address] [address] [address] Shabnam Rae Hematocrit (Bld) [Volume fraction] 40.3 % Critically low 42.0-54.0 [facility] Comment on above: Performed By: #### C BC #### [facility] [address] [address] [address] Shabnam Rae Hemoglobin (Bld) [Mass/Vol] 13.4 g/dL Critically low 14.0-18.0 [facility] Comment on above: Performed By: #### C BC #### [facility] [address] [address] [address] Shabnam Rae IG # 0.03 10e3/ul Normal 0.00-0.03 [facility] Comment on above: Performed By: #### C BC #### [facility] [address] [place] [address] Dr. Shabnam Rae IG % 0.5 % Normal 0.0-0.5 [facility] Comment on above: Performed By: #### C BC #### [facility] [address] [place] [address] Dr. Shabnam Rae LYMPH # 1.0 103/ul Critically low 1.2-3.8 [facility] Comment on above: Performed By: #### C BC #### [facility] [address] [place] [address] Dr. Shabnam Rae Lymphocytes/100 WBC (Bld) 16.4 % Critically low 20.5-60.0 [facility] Comment on above: Performed By: #### C BC #### [facility] [address] [place] [address] Dr. Shabnam Rae MANUAL DIFF REQ NO Normal [facility] Comment on above: Performed By: #### C BC #### [facility] [address] [place] [address] Dr. Shabnam Rae MCH (RBC) [Entitic mass] 29.5 pg Normal 25.9-34.0 [facility] Comment on above: Performed By: #### C BC #### [facility] [address] [address] [address] Shabnam Rae MCHC (RBC) [Mass/Vol] 33.3 g/dL Normal 29.9-35.2 [facility] Comment on above: Performed By: #### C BC #### [facility] [address] [address] [address] Shabnam Rae MCV (RBC) [Entitic vol] 88.8 fL Normal 80.0-94.0 [facility] Comment on above: Performed By: #### C BC #### [facility] [address] [place] [address] Dr. Shabnam Rae MONO # 0.6 103/ul Normal 0.3-0.8 [facility] Comment on above: Performed By: #### C BC #### [facility] [address] [place] [address] Dr. Shabnam Rae Monocytes/100 WBC (Bld) 9.6 % Normal 1.7-12.0 [facility] Comment on above: Performed By: #### C BC #### [facility] [address] [place] [address] Dr. Shabnam Rae NEUT # 4.4 103/ul Normal 1.4-6.5 [facility] Comment on above: Performed By: #### C BC #### [facility] [address] [place] [address] Dr. Shabnam Rae Neutrophils/100 WBC (Bld) 71.2 % Normal 43.0-75.0 [facility] Comment on above: Performed By: #### C BC #### [facility] [address] [place] [address] Dr. Shabnam Rae Platelet mean volume (Bld) [Entitic vol] 10.8 fL Normal 9.5-13.5 [facility] Comment on above: Performed By: #### C BC #### [facility] [address] [place] [address] Dr. Shabnam Rae PLT 158 103/ul Normal 150-450 [facility] Comment on above: Performed By: #### C BC #### [facility] [address] [place], [place] [address] Dr. Shabnam Rae RBC 4.54 106/ul Critically low 4.70-6.10 [facility] Comment on above: Performed By: #### C BC #### [facility] [address] [place], [place] [address] Dr. Shabnam Rae WBC 6.2 103/ul Normal 4.0-11.0 [facility] Comment on above: Performed By: #### C BC #### [facility] [address] [place], [place] [address] ABD/PELV W CONon [...] MAYRA BERNAL Date: 2022-01-04 05:19 Normal [facility] CT PELVIS WO CONon 2 CT [...] MANUEL HOUGH Date: 2022-01-04 08:54 Normal [facility] CULTURE URINEon 01-04-2022 CULTURE URINE Culture Observations: No growth Normal [facility] Comment on above: Performed By: #### P [facility] #### [facility] [address] [place] [address] Dr. Shabnam Rae Covid-19 PCR (CVDTB)on 12-13 SARS-CoV-2 (COVID-19) RNA ELIJAH+probe Ql (Unsp spec) Not detected Normal NOT DETECTED [facility] Comment on above: Result Comment: When diagnostic testing is negative, the possibility of a false negative should be considered in the context of a patient's recent exposures and the presence of clinical signs and symptoms consistent with SARS-CoV-2. This test is not yet approved or cleared by the [place] Food and Drug Administration (FDA). This test was developed by [employer], [place], [place]. The performance characteristics of this test were validated by [facility]. The results are not intended to be used as the sole means for clinical diagnosis or patient management decisions. [facility] is authorized under Clinical Laboratory Improvement [...] for this test is supported by the Bilingual Patient Support Caseworker of Health and Human Service's declaration that [...] used). Performed By: #### C VDTBH #### [facility] [address] [place] [address] Dr. Shabnam Rae ER URINE PROFILEon 2 Bilirubin Ql (U) Negative Normal NEGATIVE [facility] Comment on above: Performed By: #### P SASC #### [facility] [address] [place] [address] Dr. Shabnam Rae Clarity (U) CLEAR Normal CLEAR [facility] Comment on above: Performed By: #### P SASC #### [facility] [address] [place] [address] Dr. Shabnam Rae Color (U) YELLOW Normal YELLOW [facility] Comment on above: Performed By: #### P SASC #### [facility] [address] [address] [address] Shabnam HERNANDEZ A micrscopic examination will be performed if indicated. Normal [facility] Comment on above: Performed By: #### P SASC #### [facility] [address] [address] [address] Shabnam Rae Glucose Ql (U) Negative Normal NEGATIVE [facility] Comment on above: Performed By: #### P SASC #### [facility] [address] [address] [address] Shabnam Rae Hemoglobin Ql (U) Negative Normal NEGATIVE [facility] Comment on above: Performed By: #### P SASC #### [facility] [address] [place] [address] Dr. Shabnam Rae Ketones Ql (U) Negative Normal NEGATIVE [facility] Comment on above: Performed By: #### P SASC #### [facility] [address] [address] [address] Shabnam Rae LEUKOCYTES Negative Normal NEGATIVE [facility] Comment on above: Performed By: #### P SASC #### [facility] [address] [address] [address] Shabnam Rae Nitrite Ql (U) Negative Normal NEGATIVE [facility] Comment on above: Performed By: #### P SASC #### [facility] [address] [address] [address] Shabnam Rae pH (U) 6.5 [pH] Normal 5-9 [facility] Comment on above: Performed By: #### P SASC #### [facility] [address] [address] [address] Shabnam Rae SPEC GRAVITY 1.010 Normal 1.005-<=1.025 [facility] Comment on above: Performed By: #### P SASC #### [facility] [address] [address] [address] Shabnam Rae UA PROTEIN Negative Normal NEGATIVE/ TRACE [facility] Comment on above: Performed By: #### P SASC #### [facility] [address] [place] [address] Dr. Shabnam Rae UR MICRO IND NOT INDICATED Normal [facility] Comment on above: Performed By: #### P SASC #### [facility] [address] [place] [address] Dr. Shabnam Rae Urobilinogen Qn (U) 0.2 {Sarai'U}/dL Normal 0.2 - 1. 0 [facility] Comment on above: Performed By: #### P SASC #### [facility] [address] [place] [address] Dr. Shabnam Rae LACTATE/LACTIC ACIDon 2021 Lactate [Moles/Vol] 1.0 mmol/L Normal 0.4-2.0 [facility] Comment on above: Performed By: #### P SASC #### [facility] [address] [place] [address] Dr. Shabnam Rae PROF CHEM 8 (BAS METB)on Anion gap [Moles/Vol] 10.0 mmol/L Normal [facility] Comment on above: Performed By: #### B MP #### [facility] [address] [place] [address] Dr. Shabnam Rae Calcium [Mass/Vol] 8.5 mg/dL Normal 8.5-10.[address] [facility] Comment on above: Performed By: #### B MP #### [facility] [address] [place] [address] Dr. Shabnam Rae Chloride [Moles/Vol] 103 mmol/L Normal 98-107 [facility] Comment on above: Performed By: #### B MP #### [facility] [address] [place] [address] Dr. Shabnam Rae CO2 [Moles/Vol] 29.2 mmol/L Normal 21.0-32.0 [facility] Comment on above: Performed By: #### B MP #### [facility] [address] [place] [address] Dr. Shabnam Rae Creatinine [Mass/Vol] 1.25 mg/dL Normal 0.70-1.30 [facility] Comment on above: Performed By: #### B MP #### [facility] [address] [address] [address] Shabnam Rae EGFR-AF CHADIAN >60 Normal >=60 [facility] Comment on above: Performed By: #### B MP #### [facility] [address] [address] [address] Shabnam Rae EGFR-NON AF CHADIAN >60 Normal >=60 [facility] Comment on above: Performed By: #### B MP #### [facility] [address] [address] [address] Shabnam Rae Glucose [Mass/Vol] 132 mg/dL Critically high 74-106 [facility] Comment on above: Performed By: #### B MP #### [facility] [address] [address] [address] Shabnam Rae Potassium [Moles/Vol] 3.2 mmol/L Critically low 3.5-5.1 [facility] Comment on above: Performed By: #### B MP #### [facility] [address] [address] [address] Shabnam Rae Sodium [Moles/Vol] 139 mmol/L Normal 136-[address] [facility] Comment on above: Performed By: #### B MP #### [facility] [address] [address] [address] Shabnam Rae Urea nitrogen [Mass/Vol] 19.0 mg/dL Critically high 7.0-18.0 [facility] Comment on above: Performed By: #### B MP #### [facility] [address] [address] [address] Shabnam Rae Urea nitrogen/Creatinine [Mass ratio] 15.2 mg/mg Normal [facility] Comment on above: Performed By: #### B MP #### [facility] [address] [address] [address] Shabnam Rae CERVICAL SPINE 2 OR 3 [facility] 07-06-2019 CERVICAL SPINE 2 OR 3 [facility] Department of Radiology [address] [place] [id number] Patient Name: MATTY GARCES : 1970 Sex: M Age: Race: White Pt. Location: Patient Status: O Ordered Date: 07/06/2019 9:10:00 AM Completed Date: 07/06/2019 09:21 AM Requesting Provider: RADHA VIEIRA Attending Provider: RADHA VIEIRA Report Copy To: VENUS MENDEZ Signs & Symptoms: M48.02 Spinal stenosis, cervical region I10 History: Ursula Comments: , STAT READ , STAT READ , , , Ordering Provider - RADHA VIEIRA MD , Exam: CERVICAL SPINE 2 OR 3 [facility] CERVICAL SPINE 2 OR 3 [facility] 07/06/2019 9:21 AM EDT SIGNS AND SYMPTOMS: M48.02 Spinal stenosis, cervical region I10; neck and bilateral arm pain most recent surgery check hardware; , STAT READ , STAT READ , , , Ordering Provider - RADHA VIEIRA MD , TECHNOLOGIST COMMENTS: neck and [...] findings. Electronically signed by:Bernice Hoyt. Transcribed by: [email or web address], User Resident: RADHA CHIN Electronically Signed by: BERNICE HOYT @ 07/06/2019 08:52 PM I personally read this/these film(s) with this resident Normal [facility] Comment on above: Order Comment: , STA T READ , STAT READ , , , Ordering Provider - RADHA VIEIRA MD , CERVICAL SPINE 2 OR 3 [facility] 04-06-2019 CERVICAL SPINE 2 OR 3 [facility] Department of Radiology [address] [place] [id number] Patient Name: MATTY GARCES : 1970 Sex: M Age: Race: White Pt. Location: Patient Status: O Ordered Date: 04/06/2019 7:10:00 AM Completed Date: 04/06/2019 07:28 AM Requesting Provider: RADHA VIEIRA Attending Provider: RADHA VIEIRA Report Copy To: VENUS MENDEZ Signs & Symptoms: CERVICAL DISC DISORDER, UNSPECIFIED CERVICAL REGION History: FAILED URSULA / ORDER SCANNED INTO RIS Comments: AP/LAT, ODONTOID PLEASE DO SWIMMER'S VIEW FOLLOW UP HARDWARE AND ALIGNMENT, S/P ACDF, RECENT FALLS Exam: CERVICAL SPINE 2 OR 3 [facility] CERVICAL SPINE 2 OR 3 S [...] study. Electronically signed by:Bernice Hoyt. Transcribed by: [email or web address], User Resident: Electronically Signed by: BERNICE HOYT @ 04/06/2019 04:40 PM Normal [facility] Comment on above: Order Comment: AP/LA T, ODONTOID PLEASE DO SWIMMER'S VIEW FOLLOW UP HARDWARE AND ALIGNMENT, S/P ACDF, RECENT FALLS CERVICAL SPINE 2 OR 3 [facility] 02-17-2019 CERVICAL SPINE 2 OR 3 [facility] Department of Radiology [address] [place] [id number] Patient Name: MATTY GARCES : 1970 Sex: M Age: Race: White Pt. Location: Patient Status: D Ordered Date: 02/17/2019 8:50:00 AM Completed Date: 02/17/2019 09:02 AM Requesting Provider: RADHA VIEIRA Attending Provider: RADHA VIEIRA Report Copy To: VENUS MENDEZ Signs & Symptoms: CERVICALGIA History: FAILED URSULA ORDER / SCANNED INTO RIS Comments: C-SPINE [...] by:Florentino Tinajero on 02/17/2019 6:24 PM EDT. IJasmyn, have reviewed the images and report and concur with these findings. Electronically signed by:Jasmyn King. Transcribed by: [email or web address], User Resident: EMILE TINAJERO Electronically Signed by: JASMYN KING @ 02/20/2019 11:53 AM I personally read this/these film(s) with this resident Normal [facility] Comment on above: Order Comment: C-SPI NE 2 OR 3 VIEW POSTOP, EVALUATION HARDWARE AN ALIGNMENT BASIC METABOLIC PANELon 05-2 Calcium [Mass/Vol] 9.2 mg/dL Normal 8.6-10.[address] [facility] Comment on above: Order Comment: No: D o not add to previous draw Performed By: #### 5 0103 #### [facility] [address] [place] [address], [place] Chloride [Moles/Vol] 101 mmol/L Normal 98-107 [facility] Comment on above: Order Comment: No: D o not add to previous draw Performed By: #### 5 0103 #### [facility] [address] [place] [address], [place] CO2 [Moles/Vol] 26 mmol/L Normal 21-[address] [facility] Comment on above: Order Comment: No: D o not add to previous draw Performed By: #### 5 0103 #### [facility] [address] [place] [address], [place] Creatinine [Mass/Vol] 1.02 mg/dL Normal 0.70-1.30 [facility] Comment on above: Order Comment: No: D o not add to previous draw Performed By: #### 5 0103 #### [facility] [address] [place] [address], [place] GFR/1.73 sq M predicted among blacks MDRD (S/P/Bld) [Vol rate/Area] mL/min/{1.73_m2} Normal >60 [facility] Comment on above: Order Comment: No: D o not add to previous draw Performed By: #### 5 0103 #### [facility] [address] [place] [address], [facility] GFR/1.73 sq M predicted among non-blacks MDRD (S/P/Bld) [Vol rate/Area] mL/min/{1.73_m2} Normal >60 [facility] Comment on above: Order Comment: No: D o not add to previous draw Performed By: #### 5 0103 #### [facility] [address] [place] [address], [facility] Glucose [Mass/Vol] 124 mg/dL High 70-100 [facility] Comment on above: Order Comment: No: D o not add to previous draw Performed By: #### 5 0103 #### [facility] [address] [place] [address], [facility] Potassium [Moles/Vol] 3.9 mmol/L Normal 3.5-5.1 [facility] Comment on above: Order Comment: No: D o not add to previous draw Performed By: #### 5 0103 #### [facility] [address] [place] [address], [facility] Sodium [Moles/Vol] 137 mmol/L Normal 136-145 [facility] Comment on above: Order Comment: No: D o not add to previous draw Performed By: #### 5 0103 #### [facility] [address] [place] [address], [facility] Urea nitrogen [Mass/Vol] 15 mg/dL Normal 7-25 [facility] Comment on above: Order Comment: No: D o not add to previous draw Performed By: #### 5 0103 #### [facility] [address] [place] [address], [facility] CBC COMPLETE BLOOD COUNTon 0 - Erythrocyte distribution width (RBC) [Ratio] 13.9 % Normal 11.5-15.0 [facility] Comment on above: Order Comment: No: D o not add to previous draw Performed By: #### 5 0103 #### [facility] [address] [place] [address], [facility] Hematocrit (Bld) [Volume fraction] 50.0 % Normal 39.0-50.0 [facility] Comment on above: Order Comment: No: D o not add to previous draw Performed By: #### 5 0103 #### [facility] [address] [place] [id number], [facility] Hemoglobin (Bld) [Mass/Vol] 16.0 g/dL Normal 13.0-17.0 [facility] Comment on above: Order Comment: No: D o not add to previous draw Performed By: #### 5 0103 #### [facility] [address] [place] [id number], [facility] MCH (RBC) [Entitic mass] 27.5 pg Normal 27.0-33.0 [facility] Comment on above: Order Comment: No: D o not add to previous draw Performed By: #### 5 0103 #### [facility] [address] [place] [address], [facility] MCHC (RBC) [Mass/Vol] 32.0 g/dL Normal 32.0-35.0 [facility] Comment on above: Order Comment: No: D o not add to previous draw Performed By: #### 5 0103 #### [facility] [address] [place] [address], [facility] MCV (RBC) [Entitic vol] 85.9 fL Normal 82.0-98.0 [facility] Comment on above: Order Comment: No: D o not add to previous draw Performed By: #### 5 0103 #### [facility] [address] [place] [id number], [facility] Nucleated RBC/100 WBC (Bld) [Ratio] 0 % Normal 0-0 [facility] Comment on above: Order Comment: No: D o not add to previous draw Performed By: #### 5 0103 #### [facility] [address] [place] [address], [facility] PLAT CNT 249 10*3/uL Normal 150-400 [facility] Comment on above: Order Comment: No: D o not add to previous draw Performed By: #### 5 0103 #### [facility] [address] [place] [address], [facility] RBC (Bld) [#/Vol] 5.82 10*6/uL High 4.20-5.70 [facility] Comment on above: Order Comment: No: D o not add to previous draw Performed By: #### 5 0103 #### [facility] [address] [place] [address], [facility] WBC (Bld) [#/Vol] 15.85 10*3/uL High 4.00-10.60 [facility] Comment on above: Order Comment: No: D o not add to previous draw Performed By: #### 5 0103 #### [facility] [address] Operative Reporton 9 Operative Report MR#: [id number] I [facility] Pt. Name: Matty Garces Room #: [id number] Discharge Date: Birthdate: 1970 OPERATIVE REPORT DATE OF SURGERY: 01/30/2019 SURGEON: Radha Vieira M.D. 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 POSTOPERATIVE DIAGNOSIS: Failed instrumentation at C6-7 on the right. CASINO BEVERAGE SERVER: ADENIKE Lugo. ANESTHESIA: Endotracheal, Hogan. PROCEDURES: Redo [...] out in usual fashion. Electronically Signed by: Radha Vieira M.D. 02/02/2019 04:44 P Radha Vieira M.D. Date Dict: 01/30/2019/04:52 P/Radha Vieira M.D. Date Trans: 01/31/2019 02:31 Eze/sasha [id number] cc: Venus Mendez M.D. [address] [place] [address] Normal [facility] CERVICAL SPINE 2 OR 3 [facility] 01-30-2019 CERVICAL SPINE 2 OR 3 [facility] Department of Radiology [address] [place] [address] Patient Name: MATTY GARCES : 1970 Sex: M Age: Race: White Pt. Location: Patient Status: O Ordered Date: 01/30/2019 7:05:00 AM Completed Date: 01/30/2019 04:12 PM Requesting Provider: RADHA VIEIRA Attending Provider: RADHA VIEIRA Report Copy To: Signs & Symptoms: C6-7 ACDF History: C6-7 ACDF Comments: C6-7 ACDF Exam: CERVICAL SPINE 2 OR 3 [facility] CERVICAL SPINE 2 OR 3 [facility] 01/30/2019 4:12 PM EDT SIGNS AND SYMPTOMS: C6-7 ACDF TECHNOLOGIST COMMENTS: Intra op ACDF C6-7 with , 30 sec of fluoro time used QUESTION FOR THE RADIOLOGIST: C6-7 ACDF PROTOCOLS: AP, Odontoid and Lateral views were obtained. COMPARISON: None FINDINGS: 5 images were obtained. Fluoroscopic time as utilized above. IMPRESSION: For documentation Electronically signed by:Liz Montano. Transcribed by: [email or web address], User Resident: Electronically Signed by: LIZ MONTANO @ 01/30/2019 04:18 PM Normal [facility] Comment on above: Order Comment: C6-7 ACDF POC GLUCOSE LABon 01-30-2019 Glucose [Mass/Vol] 106 mg/dL High 70-100 [facility] Comment on above: Performed By: #### 5 0103 #### [facility] [address] [facility]. [address] *MRSA/MSSA DNA NASALon 01-23 *MRSA/MSSA DNA NASAL Clinical Report: (D ) Specimen: NASAL SWAB Collected: 01/23/2019 15:02 Status: Final Last Updated: 01/23/2019 20:14 MSSA DNA (Final) Methicillin Susceptible Staphylococcus aureus DNA Detected MRSA DNA (Final) No Methicillin Resistant Staphylococcus aureus DNA Detected Normal [facility] Comment on above: Performed By: #### 5 0103 #### [facility] [address] [facility]. [address] APTTon 01-23-2019 aPTT Coag (Bld) [Time] 35.4 s High 25.0-35.0 [facility] Comment on above: Result Comment: ALL [...] THIS PURPOSE. Performed By: #### 5 7307, 96867 #### [facility] [address] [place] [address], [facility] BASIC METABOLIC PANELon 01-11 Calcium [Mass/Vol] 9.5 mg/dL Normal 8.6-10.3 [facility] Comment on above: Performed By: #### 5 7307, 94986 #### [facility] [address] [facility] [place] [address], [facility] Chloride [Moles/Vol] 101 mmol/L Normal 98-107 [facility] Comment on above: Performed By: #### 5 7306, 01813 #### [facility] [address] [place] [address], [place] CO2 [Moles/Vol] 29 mmol/L Normal 21-31 [facility] Comment on above: Performed By: #### 5 7306, 45732 #### [facility] [address] [place] [address], [place] Creatinine [Mass/Vol] 1.08 mg/dL Normal 0.70-1.30 [facility] Comment on above: Performed By: #### 5 7306, 99226 #### [facility] [address] [place] [address], [place] GFR/1.73 sq M predicted among blacks MDRD (S/P/Bld) [Vol rate/Area] mL/min/{1.73_m2} Normal >60 [facility] Comment on above: Performed By: #### 5 7306, 34838 #### [facility] [address] [place] [address], [place] GFR/1.73 sq M predicted among non-blacks MDRD (S/P/Bld) [Vol rate/Area] mL/min/{1.73_m2} Normal >60 [facility] Comment on above: Performed By: #### 5 7306, 00726 #### [facility] [address] [place] [address], [place] Glucose [Mass/Vol] 87 mg/dL Normal 70-[address] [facility] Comment on above: Performed By: #### 5 7306, 97779 #### [facility] [address] [place] [address], [place] Potassium [Moles/Vol] 4.0 mmol/L Normal 3.5-5.1 [facility] Comment on above: Performed By: #### 5 7307, 58643 #### [facility] [address] [facility] [place] [address], [facility] Sodium [Moles/Vol] 137 mmol/L Normal 136-145 [facility] Comment on above: Performed By: #### 5 73, 62899 #### [facility] [address] [facility] [place] [address], [facility] Urea nitrogen [Mass/Vol] 12 mg/dL Normal 7-25 [facility] Comment on above: Performed By: #### 5 73, 50922 #### [facility] [address] [facility] [place] [address], [facility] CBC W/DIFFon 01-23-2019 ABS BASOPHILS 0.1 10*3/uL Normal 0.0-0.2 [facility] Comment on above: Performed By: #### 5 73, 15121 #### [facility] [address] [facility]. [address] ABS IMM GRANS 0.0 10*3/uL Normal 0.0-0.2 [facility] Comment on above: Performed By: #### 5 73, 58083 #### [facility] [address] [facility] [place] [address], [facility] ABS NEUTROPHILS 5.3 10*3/uL Normal 1.6-7.6 [facility] Comment on above: Performed By: #### 5 7307, 26781 #### [facility] [address] [facility] [place] [address], [facility] Basophils/100 WBC (Bld) 0.9 % Normal 0.0-1.0 [facility] Comment on above: Performed By: #### 5 7307, 98834 #### [facility] [address] [facility] [place] [address], [facility] Eosinophils (Bld) [#/Vol] 0.2 10*3/uL Normal 0.0-0.5 [facility] Comment on above: Performed By: #### 5 7306, 58370 #### [facility] [address] [place] [address], [facility] Eosinophils/100 WBC (Bld) 2.3 % Normal 0.0-6.0 [facility] Comment on above: Performed By: #### 5 7306, 54999 #### [facility] [address] [place] [address], [facility] Erythrocyte distribution width (RBC) [Ratio] 13.8 % Normal 11.5-15.0 [facility] Comment on above: Performed By: #### 5 7306, 03055 #### [facility] [address] [place] [address], [facility] Hematocrit (Bld) [Volume fraction] 49.6 % Normal 39.0-50.0 [facility] Comment on above: Performed By: #### 5 7306, 79324 #### [facility] [address] [place] [address], [facility] Hemoglobin (Bld) [Mass/Vol] 16.4 g/dL Normal 13.0-17.0 [facility] Comment on above: Performed By: #### 5 7306, 15927 #### [facility] [address] [place] [address], [facility] IMMATURE GRANS 0.5 % Normal 0.0-1.0 [facility] Comment on above: Performed By: #### 5 7306, 75599 #### [facility] [address] [place] [address], [facility] Lymphocytes (Bld) [#/Vol] 1.2 10*3/uL Normal 1.2-4.0 [facility] Comment on above: Performed By: #### 5 7306, 35846 #### [facility] [address] [place] [id number], [facility] Lymphocytes/100 WBC (Bld) 16.6 % Low 20.0-45.0 [facility] Comment on above: Performed By: #### 7306, 23108 #### [facility] [address] [place] [address], [facility] MCH (RBC) [Entitic mass] 27.8 pg Normal 27.0-33.0 [facility] Comment on above: Performed By: #### 5 7306, 13911 #### [facility] [address] MCHC (RBC) [Mass/Vol] 33.1 g/dL Normal 32.0-35.0 [facility] Comment on above: Performed By: #### 5 7306, 06826 #### [facility] [address] [place] [address], [facility] MCV (RBC) [Entitic vol] 84.2 fL Normal 82.0-98.0 [facility] Comment on above: Performed By: #### 5 7306, 52956 #### [facility] [address] [facility] [place] [address], [facility] Monocytes (Bld) [#/Vol] 0.7 10*3/uL Normal 0.1-1.0 [facility] Comment on above: Performed By: #### 5 7306, 56231 #### [facility] [address] [place] [address], [facility] MONOS 9.4 % Normal 5.0-12.0 [facility] Comment on above: Performed By: #### 5 7306, 27546 #### [facility] [address] [place] [address], [facility] Neutrophils/100 WBC (Bld) 70.3 % Normal 40.0-72.0 [facility] Comment on above: Performed By: #### 7306, 63817 #### [facility] [address] [place] [address], [facility] Nucleated RBC/100 WBC (Bld) [Ratio] 0 % Normal 0-0 [facility] Comment on above: Performed By: #### 5 7307, 69714 #### [facility] [address] [place] [address], [facility] PLAT CNT 235 10*3/uL Normal 150-400 [facility] Comment on above: Performed By: #### 5 7307, 10634 #### [facility] [address] RBC (Bld) [#/Vol] 5.89 10*6/uL High 4.20-5.70 [facility] Comment on above: Performed By: #### 5 7307, 66079 #### [facility] [address] WBC (Bld) [#/Vol] 7.48 10*3/uL Normal 4.00-10.60 [facility] Comment on above: Performed By: #### 5 7307, 47168 #### [facility] [address] PROTHROMBIN TIMEon 9 INR Coag (PPP) [Relative time] 1.12 {INR} Normal 0.91-1.16 [facility] Comment on above: Result Comment: ACCC [...] CHEST 1995;108:231S-246S. Performed By: #### 5 7307, 66892 #### [facility] [address] PT Coag (PPP) [Time] 14.4 s Normal 12.3-14.8 [facility] Comment on above: Result Comment: ALL RESULTS MUST BE INTERPRETED WITH RESPECT TO BLOOD DRAWING ARTIFACT OR DILUTION ERROR OF ANTICOAGULANT AT THE TIME OF SAMPLING. Performed By: #### 5 7307, 69700 #### [facility] [address] TYPE AND SCREENon 01-23-2019 ABO INTERPRETATION A Normal [facility] Comment on above: Performed By: #### 5 7307, 91814 #### [facility] [address] [place] [address], [facility] RH INTERPRETATION Positive Normal [facility] Comment on above: Performed By: #### 5 7307, 30122 #### [facility] [address] 3D CERVICAL SPINE WO CONT RASTon 01-12-2019 CT 3D CERVICAL SPINE WO CONTRAST [facility] Department of Radiology [address] [place] [phone] Patient Name: MATTY GARCES : 1970 Sex: M Age: Race: White Pt. Location: Patient Status: D Ordered Date: 01/10/2019 2:15:00 PM Completed Date: 01/12/2019 10:32 AM Requesting Provider: RADHA VIEIRA Attending Provider: RADHA VIEIRA Report Copy To: VENUS MENDEZ Signs & Symptoms: M48.02 Spinal stenosis, cervical region I10 History: Ursula para auth # [id number] 01/10/19-02/09/19 [id number] *er Comments: Exam: CT 3D CERVICAL SPINE [...] incomplete Electronically signed by:Ten Garland. Transcribed by: [email or web address], User Resident: Electronically Signed by: TEN GARLAND @ 01/13/2019 09:18 AM [place] [facility] CERVICAL SPINE 2 OR 3 [facility] 01-05-2019 CERVICAL SPINE 2 OR 3 [facility] Department of Radiology [address] [place] [phone] Patient Name: MATTY GARCES : 1970 Sex: M Age: Race: White Pt. Location: Patient Status: O Ordered Date: 01/05/2019 9:00:00 AM Completed Date: 01/05/2019 09:06 AM Requesting Provider: RADHA VIEIRA Attending Provider: RADHA VIEIRA Report Copy To: Signs & Symptoms: M48.02 Spinal stenosis, cervical region I10 History: Robert Lee Comments: , , , Ordering Provider - RADHA VIEIRA MD , Exam: CERVICAL SPINE 2 OR 3 [facility] CERVICAL SPINE 2 OR 3 S 01/05/2019 9:06 AM EDT SIGNS AND SYMPTOMS: M48.02 Spinal stenosis, cervical region I10 TECHNOLOGIST COMMENTS: neck pain, left side worse, surgery this past august QUESTION FOR THE RADIOLOGIST: , , , Ordering Provider - RADHA VIEIRA MD , PROTOCOLS: AP, Odontoid and [...] migrating anteriorly. Unchanged since prior study Approved by:Kyleigh Dela Cruz on 01/05/2019 11:53 AM EDT. I, Ten Garland, have reviewed the images and report and concur with these findings. Electronically signed by:Ten Garland. Transcribed by: [email or web address], User Resident: KYLEIGH DELA CRUZ Electronically Signed by: TEN GARLAND @ 01/05/2019 12:37 PM I personally read this/these film(s) with this resident Normal [facility] Comment on above: Order Comment: , , = ========= , Ordering Provider - RADHA VIEIRA MD , CERVICAL SPINE 2 OR 3 [facility] 08-30-2018 CERVICAL SPINE 2 OR 3 [facility] Department of Radiology [address] [place] [phone] Patient Name: MATTY GARCES : 1970 Sex: M Age: Race: White Pt. Location: Patient Status: O Ordered Date: 08/30/2018 9:35:00 AM Completed Date: 08/30/2018 09:43 AM Requesting Provider: RADHA VIEIRA Attending Provider: RADHA IVEIRA Report Copy To: VENUS MENDEZ Signs & Symptoms: M50.90 Cervical disc disorder, unsp, unspecified cervical region I10 History: Robert Lee Comments: , POST OP XRAY AP/LAT ONLY , POST OP XRAY AP/LAT ONLY , , , Ordering Provider - RADHA VIEIRA MD , Exam: CERVICAL SPINE 2 OR 3 [facility] CERVICAL SPINE 2 OR 3 [facility] 08/30/2018 9:43 AM EST SIGNS AND SYMPTOMS: M50.90 Cervical disc disorder, unsp, unspecified cervical region I10 TECHNOLOGIST COMMENTS: pt states having neck surgery on 08-17-18 QUESTION FOR THE RADIOLOGIST: , POST OP XRAY AP/LAT ONLY , POST OP XRAY AP/LAT ONLY , , , Ordering Provider - RADHA VIEIRA MD , PROTOCOLS: AP, Odontoid and [...] Head on 08/30/2018 2:29 PM EST. I, Jasmyn King, have reviewed the images and report and concur with these findings. Electronically signed by:Jasmyn King. Transcribed by: [email or web address], User Resident: RYAN HEAD Electronically Signed by: JASMYN KING @ 08/30/2018 05:45 PM I personally read this/these film(s) with this resident Normal [facility] Comment on above: Order Comment: , POS T OP XRAY AP/LAT ONLY , POST OP XRAY AP/LAT ONLY , , , Ordering Provider - RADHA VIEIRA MD , Operative Reporton 8 Operative Report MR#: [id number] I [facility] Pt. Name: Matty Garces Room #: [id number] Discharge Date: Birthdate: 1970 OPERATIVE REPORT DATE OF SURGERY: 08/17/2018 SURGEON: Radha Vieira M.D. PREOPERATIVE DIAGNOSIS: Herniated cervical disk at C6-7. POSTOPERATIVE DIAGNOSIS: Herniated cervical disk at C6-7. CASINO BEVERAGE SERVER: ADENIKE Larios. ANESTHESIA: Endotracheal, Braida. PROCEDURE: Anterior [...] patient tolerated the procedure. Electronically Signed by: Radha Vieira M.D. 08/22/2018 06:34 A Radha Vieira M.D. Date Dict: 08/17/2018/12:31 P/Radha Vieira M.D. Date Trans: 08/17/2018 11:25 P/sasha [id number] cc: Venus Mendez M.D. [address], [facility] [address] [place] [facility] CERVICAL SPINE 2 OR 3 [facility] 08-17-2018 CERVICAL SPINE 2 OR 3 [facility] Department of Radiology [address] [place] [address] Patient Name: MATTY GARCES : 1970 Sex: M Age: Race: White Pt. Location: Patient Status: I Ordered Date: 08/17/2018 8:30:00 AM Completed Date: 08/17/2018 11:49 AM Requesting Provider: RADHA VIEIRA Attending Provider: RADHA VIEIRA Report Copy To: Signs & Symptoms: C6-7 ACDF with History: C6-7 ACDF with Comments: C6-7 ACDF with Exam: CERVICAL SPINE 2 OR 3 [facility] CERVICAL SPINE 2 OR 3 S [...] findings. Electronically signed by:Bernice Hoyt. Transcribed by: [email or web address], User Resident: EMILE TINAJERO Electronically Signed by: BERNICE HOYT @ 08/18/2018 01:06 PM I personally read this/these film(s) with this resident Normal [facility] Comment on above: Order Comment: C6-7 ACDF with POC GLUCOSE LABon 08-17-2018 Glucose [Mass/Vol] 113 mg/dL High 70-100 [facility] Comment on above: Performed By: #### 8 5499 #### [facility] [address] [facility]. [address] RBC'S 2 UNITSon 08-17-2018 CROSSMATCH INTERP 1 COMP Normal [facility] Comment on above: Performed By: #### 8 6002 #### [facility] [address] [facility]. [address] CROSSMATCH INTERP 2 COMP Normal [facility] Comment on above: Performed By: #### 8 6002 #### [facility] [address] [facility]. [address] PRODUCT CODE 1 E0336 Normal [facility] Comment on above: Performed By: #### 8 6002 #### [facility] [address] [facility] [place] [address], [facility] PRODUCT CODE 2 E0336 Normal [facility] Comment on above: Performed By: #### 8 6002 #### [facility] [address] [place] [address], [facility] PRODUCT STATUS 1 RE Normal The [facility] Comment on above: Result Comment: Resu lt changed by IF on 08/20/2018 07:48. The previous value was XM. Performed By: #### 8 6002 #### [facility] [address] [place] [address], [facility] PRODUCT STATUS 2 RE Normal [facility] Comment on above: Result Comment: Resu lt changed by IF on 08/20/2018 07:48. The previous value was XM. Performed By: #### 8 6002 #### [facility] [address] [place] [address], [place] UNIT ABO 1 A Normal [facility] Comment on above: Performed By: #### 8 6002 #### [facility] [address] [place] [address], [place] UNIT ABO 2 A Normal [facility] Comment on above: Performed By: #### 8 6002 #### [facility] [address] [place] [address], [place] UNIT ID 1 [id number] Normal The [facility] Comment on above: Performed By: #### 8 6002 #### [facility] [address] [place] [address], [facility] UNIT ID 2 [id number] [facility] Comment on above: Performed By: #### 8 6002 #### [facility] [address] [place] [address], [place] UNIT RH 1 Positive Normal [facility] Comment on above: Performed By: #### 8 6002 #### [facility] [address] [place] [address], [place] UNIT RH 2 Positive Normal [facility] Comment on above: Performed By: #### 8 6002 #### [facility] [address] [place] [address], [facility] *MRSA/MSSA CULTUREon 08-02- 018 *MRSA/MSSA CULTURE Clinical Report: (D) Specimen: NASAL SWAB Collected: 08/02/2018 12:37 Status: Final Last Updated: 08/03/2018 14:26 ISO (Final) No Methicillin Resistant Staphylococcus aureus Isolated (MRSA) ISO (Final) Methicillin Sensitive Staphylococcus aureus (MSSA) Isolated Normal [facility] Comment on above: Performed By: #### 3 1302 #### [facility] [address] APTTon 08-02-2018 aPTT Coag (Bld) [Time] 31.2 s Normal 25.0-35.0 [facility] Comment on above: Result Comment: ALL [...] THIS PURPOSE. Performed By: #### 5 7307, 59779 #### [facility] [address] BASIC METABOLIC PANELon 07-15 Calcium [Mass/Vol] 9.4 mg/dL Normal 8.6-10.[address] [facility] Comment on above: Performed By: #### 0 0071 #### [facility] [address] [place] [address], [facility] Chloride [Moles/Vol] 103 mmol/L Normal 98-107 [facility] Comment on above: Performed By: #### 0 0071 #### [facility] [address] [place] [address], [facility] CO2 [Moles/Vol] 29 mmol/L Normal 21-31 [facility] Comment on above: Performed By: #### 0 0071 #### [facility] [address] Creatinine [Mass/Vol] 1.06 mg/dL Normal 0.70-1.30 [facility] Comment on above: Performed By: #### 0 0071 #### [facility] [address] [place] [address], [facility] GFR/1.73 sq M predicted among blacks MDRD (S/P/Bld) [Vol rate/Area] mL/min/{1.73_m2} Normal >60 [facility] Comment on above: Performed By: #### 0 0071 #### [facility] [address] [place] [address], [facility] GFR/1.73 sq M predicted among non-blacks MDRD (S/P/Bld) [Vol rate/Area] mL/min/{1.73_m2} Normal >60 [facility] Comment on above: Performed By: #### 0 0071 #### [facility] [address] [place] [address], [facility] Glucose [Mass/Vol] 84 mg/dL Normal 70-100 [facility] Comment on above: Performed By: #### 0 0071 #### [facility] [address] [place] [address], [facility] Potassium [Moles/Vol] 4.0 mmol/L Normal 3.5-5.1 [facility] Comment on above: Performed By: #### 0 0071 #### [facility] [address] [place] [address], [place] Sodium [Moles/Vol] 140 mmol/L Normal 136-145 [facility] Comment on above: Performed By: #### 0 0071 #### [facility] [address] [place] [address], [facility] Urea nitrogen [Mass/Vol] 20 mg/dL Normal 7-25 [facility] Comment on above: Performed By: #### 0 0071 #### [facility] [address] [place] [address], [place] CBC W/DIFFon 08-02-2018 ABS BASOPHILS 0.1 10*3/uL Normal 0.0-0.2 [facility] Comment on above: Performed By: #### 5 0103 #### [facility] [address] [place] [address], [facility] ABS IMM GRANS 0.1 10*3/uL Normal 0.0-0.2 [facility] Comment on above: Performed By: #### 5 0103 #### [facility] [address] [facility] [place] [address], [facility] ABS NEUTROPHILS 4.2 10*3/uL Normal 1.6-7.6 The [facility] Comment on above: Performed By: #### 5 0103 #### [facility] [address] [facility] [place] [address], [facility] Basophils/100 WBC (Bld) 1.3 % High 0.0-1.0 [facility] Comment on above: Performed By: #### 5 0103 #### [facility] [address] [facility] [place] [address], [facility] Eosinophils (Bld) [#/Vol] 0.1 10*3/uL Normal 0.0-0.5 [facility] Comment on above: Performed By: #### 5 0103 #### [facility] [address] [place] [address], [facility] Eosinophils/100 WBC (Bld) 2.0 % Normal 0.0-6.0 [facility] Comment on above: Performed By: #### 5 0103 #### [facility] [address] [facility] Erythrocyte distribution width (RBC) [Ratio] 13.6 % Normal 11.5-15.0 [facility] Comment on above: Performed By: #### 5 0103 #### [facility] [address] [place] [address], [facility] Hematocrit (Bld) [Volume fraction] 44.3 % Normal 39.0-50.0 [facility] Comment on above: Performed By: #### 5 0103 #### [facility] [address] [facility] [address], [facility] Hemoglobin (Bld) [Mass/Vol] 15.1 g/dL Normal 13.0-17.0 [facility] Comment on above: Performed By: #### 5 3 #### [facility] [address] [place] [address], [facility] IMMATURE GRANS 1.1 % High 0.0-1.0 [facility] Comment on above: Performed By: #### 3 #### [facility] [address] [place] [address], [facility] Lymphocytes (Bld) [#/Vol] 1.2 10*3/uL Normal 1.2-4.0 [facility] Comment on above: Performed By: #### 5 3 #### [facility] [address] Lymphocytes/100 WBC (Bld) 18.3 % Low 20.0-45.0 [facility] Comment on above: Performed By: #### 5 3 #### [facility] [address] [place] [address], [facility] MCH (RBC) [Entitic mass] 29.0 pg Normal 27.0-33.0 [facility] Comment on above: Performed By: #### 5 3 #### [facility] [address] [place] [address], [facility] MCHC (RBC) [Mass/Vol] 34.1 g/dL Normal 32.0-35.0 [facility] Comment on above: Performed By: #### 5 3 #### [facility] [address] [place] [address], [facility] MCV (RBC) [Entitic vol] 85.0 fL Normal 82.0-98.0 [facility] Comment on above: Performed By: #### 0103 #### [facility] [address] [place] [address], [facility] Monocytes (Bld) [#/Vol] 0.7 10*3/uL Normal 0.1-1.0 [facility] Comment on above: Performed By: #### 102 #### [facility] [address] [facility] [address], [facility] MONOS 11.1 % Normal 5.0-12.0 [facility] Comment on above: Performed By: #### 102 #### [facility] [address] [facility] [place] [address], [facility] Neutrophils/100 WBC (Bld) 66.2 % Normal 40.0-72.0 [facility] Comment on above: Performed By: #### 102 #### [facility] [address] [facility] [place] [address], [facility] Nucleated RBC/100 WBC (Bld) [Ratio] 0 % Normal 0-0 [facility] Comment on above: Performed By: #### 102 #### [facility] [address] [facility] [place] [address], [facility] PLAT CNT 179 10*3/uL Normal 150-400 [facility] Comment on above: Performed By: #### 102 #### [facility] [address] [facility] [place] [address], [facility] RBC (Bld) [#/Vol] 5.21 10*6/uL Normal 4.20-5.70 [facility] Comment on above: Performed By: #### 102 #### [facility] [address] [facility] [place] [address], [facility] WBC (Bld) [#/Vol] 6.39 10*3/uL Normal 4.00-10.60 [facility] Comment on above: Performed By: #### 3 #### [address] CERVICAL SPINE 4 OR 5 VIEWSo n 08-02-2018 CERVICAL SPINE 4 OR 5 VIEWS [facility] Department of Radiology [address] [place] [id number] Patient Name: MATTY GARCES : 1970 Sex: M Age: Race: White Pt. Location: Patient Status: D Ordered Date: 08/02/2018 1:05:00 PM Completed Date: 08/02/2018 01:29 PM Requesting Provider: RADHA VIEIRA Attending Provider: RADHA VIEIRA Report Copy To: VENUS MENDEZ Signs & Symptoms: Z01.89 Encounter for other specified special examinations I10 History: Ursula Comments: , PREOP XRAY AP/LAT \EANDE\ FLEX/EX , PREOP XRAY AP/LAT \EANDE\ FLEX/EX , , , Ordering Provider - RADHA VIEIRA MD , Exam: CERVICAL SPINE 4 [...] Tinajero on 08/02/2018 5:59 PM EST. I, Jasmyn King, have reviewed the images and report and concur with these findings. Electronically signed by:Jasmyn King. Transcribed by: [email or web address], User Resident: EMILE TINAJERO Electronically Signed by: JASMYN KING @ 08/03/2018 11:58 AM I personally read this/these film(s) with this resident Normal [facility] Comment on above: Order Comment: , PRE OP XRAY AP/LAT \EANDE\ FLEX/EX , PREOP XRAY AP/LAT \EANDE\ FLEX/EX , , , Ordering Provider - RADHA VIEIRA MD , PROTHROMBIN TIMEon 8 INR Coag (PPP) [Relative time] 1.15 {INR} Normal 0.91-1.16 [facility] Comment on above: Result Comment: ACCC [...] CHEST 1995;108:231S-246S. Performed By: #### 5 7307, [id number] #### [facility] [address] [place] [address], [facility] PT Coag (PPP) [Time] 14.7 s Normal 12.3-14.8 [facility] Comment on above: Result Comment: ALL RESULTS MUST BE INTERPRETED WITH RESPECT TO BLOOD DRAWING ARTIFACT OR DILUTION ERROR OF ANTICOAGULANT AT THE TIME OF SAMPLING. Performed By: #### 5 7307, [id number] #### [facility] [address] [place] [address], [facility] TYPE AND SCREENon 08-02-2018 ABO INTERPRETATION A Normal [facility] Comment on above: Order Comment: 2 uni ts 2 units 2 units 2 units 2 units Performed By: #### 6 2586 #### [facility] [address] [place] [address], [facility] RH INTERPRETATION Positive Normal [facility] Comment on above: Order Comment: 2 uni ts 2 units 2 units 2 units 2 units Performed By: #### 6 2586 #### [facility] [address] [place] [address], [facility] URINALYSIS REFLEXon 08-02-20 18 Appearance (U) CLEAR Normal CLEAR [facility] Comment on above: Performed By: #### 3 0965 #### [facility] [address] [place] [address], [facility] Bilirubin [Mass/Vol] Negative Normal NEGATIVE [facility] Comment on above: Performed By: #### 3 0965 #### [facility] [address] [place] [address], [facility] BLOOD Negative Normal NEGATIVE [facility] Comment on above: Performed By: #### 3 0965 #### [facility] [address] [place] [address], [facility] Color (U) YELLOW Normal YELLOW [facility] Comment on above: Performed By: #### 3 0965 #### [facility] [address] [place] [address], [place] Glucose [Mass/Vol] 150 mg/dL Abnormal NEGATIVE [facility] Comment on above: Performed By: #### 3 0965 #### [facility] [address] [place] [address], [facility] KETONE Negative Normal NEGATIVE [facility] Comment on above: Performed By: #### 3 0965 #### [facility] [address] [place] [address], [place] Negative Normal NEGATIVE [facility] Comment on above: Performed By: #### 3 0965 #### [facility] [address] [facility] [place] [address], [facility] MICRO NOT DONE negative chemical reactions unless requested in original order Normal [facility] Comment on above: Performed By: #### 3 0965 #### [facility] [address] [facility] [place] [address], [place] Nitrite Ql (U) Negative Normal NEGATIVE [facility] Comment on above: Performed By: #### 3 0965 #### [facility] [address] [facility] [place] [address], [facility] pH (Bld) 5.0 Normal 5.0-8.0 [facility] Comment on above: Performed By: #### 3 0965 #### [facility] [address] [facility] [place] [address], [facility] Protein (U) [Mass/Vol] Negative Normal NEGATIVE [facility] Comment on above: Performed By: #### 3 0965 #### [facility] [address] [place] [address], [facility] SPEC GRAV 1.024 High 1.015-1.020 [facility] Comment on above: Performed By: #### 3 0965 #### [facility] [address] [place] [address], [facility] Vital Signs Date Time Vital Sign Value Performing Clinician Molly bunn 02-25-2022 10:30-0400 Blood Pressure Location Viola Lue [facility] 02-25-2022 10:30-0400 Diastolic blood pressure 107 mm[Hg] Viola Lue [facility] 02-25-2022 10:30-0400 Heart rate 74 /min Viola Lue [facility] 02-25-2022 10:30-0400 Respiratory rate 16 /min Viola Lue [facility] 02-25-2022 10:30-0400 Systolic blood pressure 157 mm[Hg] Viola Lue [facility] Encounters Encounter Date Encounter Type Care Provider Facility Start: 11-29-2023 End: 11-30-2023 ambulatory Diallo Beauchmap MD [facility] Start: 10-18-2023 End: 10-19-2023 ambulatory Diallo Beauchamp MD [facility] Start: 09-27-2023 End: 09-27-2023 ambulatory RUBÉN GEIGER Not Available Start: 08-30-2023 End: 08-31-2023 ambulatory Diallo Beauchamp MD Facility:[facility] Start: 07-12-2023 End: 07-13-2023 ambulatory Diallo Beauchamp MD Facility:[facility] Start: 06-14-2023 End: 06-15-2023 ambulatory Diallo Beauchamp MD Facility:[facility] Start: 03-11-2023 End: 03-11-2023 ambulatory Rubén Geiger Facility:[facility] Start: 12-06-2022 End: 12-06-[address] VENUS MENDEZ . Facility:[facility] Start: 12-05-2022 Encounter for genera l adult medical examination without abnormal findings DR VENUS MENDEZ . [facility] Start: 12-01-2022 End: 12-02-2022 ambulatory [...] encounter procedure Viola Grullon [facility] Start: 01-04-2022 End: 01-05-[address] VENUS MENDEZ . Facility: Start: 01-30-2019 End: 02-01-2019 Evaluation and management of inpatient PROVIDER UNKNOWN Facility:[email or web address] Start: 08-17-2018 End: 08-18-2018 Patient encounter procedure PROVIDER UNKNOWN Facility:[facility] [[email or web address] Procedures Date Procedure Procedure Detail Performing Clinician Start: 12-01-[address] FRANKLIN MENDEZ . Comment on above: Performed By: #### P [facility] #### [facility] [address] [place] [address] Dr. Shabnam Rae Start: 01-30-2019 FUSION CERV JT W INT BD FUS DEV, ANT APPR A COL, OPEN AZEDINE [facility] Start: 01-30-2019 REMOVAL OF INT FIX F ROM CERVCAL VERTEBRA, OPEN APPROACH AZ[facility]INE [facility] Start: 01-23-2019 Antibody screen PROVIDE R UNKNOWN Comment on above: Performed By: #### 5 7307, [id number] #### [facility] [address] Start: 08-17-2018 ANESTH SPINE CORD SURGERY [...] units Performed By: #### 6 2586 #### [facility] [address] Colonoscopy Viola Grullon Hemorrhoids (disorder) Viola Lue Hernia of abdominal cavity (disorder) Viola Exaptivee Tonsillectomy Viola Exaptivelucy Payers Date Payer Category Payer Self-pay 2022 Medicaid [id number] 2022 Unknown 1970 Unknown [id number] 2.16.8 [id number] 1970 Unknown [id number] 2.16.8 40.1.310199.3.579.2.647 1970 Unknown [id number] 2.16.84 0.1.859484.3.579.2.593 1970 Unknown [id number] 2.16.84 0.1.026454.3.579.2.593 1970 Unknown [id number] 2.16.84 0.1.768966.3.579.2.593 1970 Unknown [id number] 2.16.84 0.1.764064.3.579.2.593 1970 Unknown [id number] 2.16.84 0.1.844425.3.579.2.593 1970 Unknown [id number] 2.16.84 0.1.034262.3.579.2.593 1970 Unknown [id number] 2.16.84 0.1.458316.3.579.2.1259 1970 Unknown [id number] 2.16. 840.1.655076.3.579.2.196 1970 Unknown [id number] 2.16. 840.1.901227.3.579.2.196 1970 Unknown [id number] 2.16. 840.1.969560.3.579.2.196 1970 Unknown [id number] 2.16. 840.1.625667.3.579.2.196 1970 Unknown [id number] 2.16. 840.1.795088.3.579.2.196 1960 Unknown [id number] Unknown [id number] Unknown [id number] 2.16.8 40.1.703773.3.579.2.531 Social History Date Type Detail Facility Tobacco smoking status No Smoking Status Entered [facility] Sex Assigned At Male [facility] Functional Status Date Assessment Result Facility 02-25-2022 Functional Status N/A [facility] Progress note 06-09-2023 Note Date & Type Note Facility 06-09-2023 Note [facility] Continue GDMT- Diuretic therapy Monitor daily weights, I&O, fluid restriction 1.5-2L/day, renal function and electrolytes- [facility] Clinical Note 03-26-2022 Note Date & [...] authenticated by: ALVINA CAICEDO Date: 2022-03-26 10:47 [facility] Discharge instructions 02-25-2022 Note Date & [...] Watch the hydrocele for any changes. Take [id number] and prescription medicines only as told by [...] 02/17/2011 Document Revised: 09/10/2018 Document Reviewed: 09/10/2018 [employer] Patient Education 2019 [employer]. Follow Up Care 01/28/2022 10:36:35 With:Mitchel DELGADO, [place] Gregorio, URO Address: When: Unknown [facility] Evaluation + Plan note Note Date & Type Note Facility Evaluation + Plan note No data available for this section [facility] Progress note Note Date & Type Note Facility Progress note No data available for this section [facility] Summary Purpose Family History No Family [...] Records Found Hospital Course Note MR#: [id number] [facility] Pt. Name: Matty Garces Admitted: 01/30/2019 Discharged: 02/01/2019 Date of : 1970 Physician: Radha Vieira M.D. DISCHARGE SUMMARY PRINCIPAL DIAGNOSIS: Cervical [...] section and content) DATE CREATED AUTHOR 07/19/2019 [facility] DATE CREATED AUTHOR AUTHOR'S ORGANIZ ATION 02/27/2022 [facility] DATE CREATED AUTHOR AUTHOR'S ORGANIZ ATION 12/08/2022 [facility] DATE CREATED AUTHOR AUTHOR'S ORGANIZ ATION 03/17/2023 [facility] DATE CREATED AUTHOR AUTHOR'S ORGANIZ ATION 06/17/2023 [facility] DATE CREATED AUTHOR AUTHOR'S ORGANIZ ATION 09/27/2023 [facility] EPIC DATE CREATED AUTHOR AUTHOR'S ORGANIZ ATION 12/03/2023 [facility] Care Team (unrecognized sect ion and content) Personnel Name: Andrea DELGADO Venus Address: [address] [place] [address] FOR RECORDS PERTAINING TO PATIENTS WHO ARE [...] BE BASED ON THE PRIMARY CLINICAL RECORDS. [employer] [facility]. provides no warranty or guarantee of the accuracy or completeness of information in this document.
== END 2023-12-10 11:01 | disposition home or self-care (01) ==
LOC: WC 11:00
PROVIDERS: PCP Family Medicine; Visit Provider Podiatrist Foot & Ankle Surgery
DX: L97.512 Non-pressure chronic ulcer of other part of right foot with fat layer exposed (principal)
CPT/HCPCS: 11042; 73630; G0463

== ENCOUNTER 2023-12-18 11:30 | Outpatient (OUT) | payer MEDICAID, SELFPAY ==
--- OUTSIDE RECORDS SUMMARY | 2023-12-18 11:33 | XMS_ITS | CCD ---
Author Organization [facility] Care Team Providers Care Insurance Follow Up Specialist Name Role Phone UNKNOWN, PROVIDER Admitting Unavailable UNKNOWN, PROVIDER Attending Unavailable VENUS MENDEZ Referring Unavailable VENUS MENDEZ Primary Care Unavailable SC Procedure Practitioner Unavailab le UNKNOWN, PROVIDER Surgeon Unavailable SC Procedure Practitioner Unavailab le SANDRA BILL Surgeon Unavailable UNKNOWN, PROVIDER Admitting Unavailable UNKNOWN, PROVIDER Attending Unavailable VENUS MENDEZ Referring Unavailable VENUS MENDEZ Primary Care Unavailable SC Procedure Practitioner Unavailab le UNKNOWN, PROVIDER Surgeon [...] source) Aspartame Drug Allergy 08-17-20 18 [facility] (1 source) avoid; Translations: [Unknown] Propensity to adverse reactions (disorder) 08-17-20 [facility] (1 source) vitamin B12; Translations: [cyanocobalamin] Drug Allergy Unknown (qualifier value) [facility] (1 source) Acetaminophen / HYDROcodone Drug Allergy [facility] (1 source) Corticosteroids Drug allergy (disorder) [facility] (1 source) fentaNYL Drug Allergy [facility] (1 source) Misc-Food; Translations: [Misc-Food] Food allergy (disorder) [facility] (1 source) Corticosteroids Drug allergy (disorder) 05-14-20 [facility] Medications Current Medications Medication Drug [...] Onset: 3 Chronic Other aftercare (1 source) care home (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; Translations: [CYLINDER HONER 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 ASPIRIN] Onset: 3 Episodic Other aftercare (1 source) Other [facility] (current) drug therapy; Translations: [OTH CYLINDER HONER CURRENT DRUG THERAPY] Onset: 3 Episodic Other [...] 5V*on 02-12 XR cervical spine 5V* [facility] [place] [id number] XRay Report Signed Patient: Matty Garces MR#: [id number] 97 : 1970 Acct:[id number] Age/Sex: 52 / M ADM Date: 03/11/23 Loc: ICXD Room: Type: [facility] Attending Dr: Rubén Geiger MD Copies to: [...] Crow Contreras M.D.03/11/2023 3:48 PM Dictation Location: [place] [address] Transcribed By: [facility] 03/11/23 1548 Dictated By: Crow Contreras DO 03/11/23 1544 Signed By: 03/11/[address] [facility] [address] CSPINE WO CONon CT CSPINE [...] Date: 2022-12-06 06:37 Normal [facility] CT FACIAL BONES WO CONon CT FACIAL [...] Date: 2022-12-06 06:41 Normal [facility] CT HEAD WO CONon 12-06-2022 CT HEAD [...] Date: 2022-12-06 06:39 Normal [facility] XR ELBOW RT MIN 3 VIEWSon XR ELBOW RT MIN 3 VIEWS Exam: Radiographs: XR ELBOW RT MIN 3 VIEWS Reason for exam: Elbow pain Comparison: None IMPRESSION: Right elbow degenerative changes. Olecranon spur. Remainder of the right elbow is unremarkable. Electronically authenticated by: MICHAEL CASANOVA Date: 2022-12-06 07:22 Normal [facility] XR FOREARM RT 2Von 03-26-202 3 XR FOREARM RT 2V Exam: Radiographs: XR FOREARM RT 2V Reason for exam: Forearm pain Comparison: None IMPRESSION: Mild degenerative changes in the right elbow and wrist. Right forearm is otherwise unremarkable. Electronically authenticated by: MICHAEL CASANOVA Date: 2022-12-06 08:07 Normal [facility] PSA, FREE AND TOTAL RATIOon 12-03-2022 % Free PSA 9.0 % Normal [facility] Comment on above: Result Comment: The [...] By: #### P SAFREE #### [facility] [address] [place] [address] [address] Shabnam Rae Prostate specific Ag [Mass/Vol] 5.9 ng/mL Critically high 0.0-4.0 [facility] Comment on above: Result Comment: Roch lucy ECLIA methodology. . According to the [employer], Serum PSA should decrease and [...] By: #### P SAFREE #### [facility] [address] [place] [address] [address] Shabnam Rae PSA, Free 0.53 ng/mL Normal N/A [facility] Comment on above: Result Comment: Roch e ECLIA methodology. Performed By: #### P SAFREE #### [facility] [address] [place] [address] [address] Shabnam Rae INSULINon 12-02-2022 Insulin 20.2 uIU/mL Normal 2.6-24.9 [facility] Comment on above: Performed By: #### P SASC #### [facility] [address] [place] [address] Dr. Shabnam Rae TESTOSTERONE, TOTALon 2022 Testosterone [Mass/Vol] 256 ng/dL Critically low 264-916 [facility] Comment on above: Result Comment: Adul t male reference interval is based on a population of healthy nonobese males (BMI <30) between 19 and 39 years old. Dima et.al. JCEM 2017,102;3897-9656. PMID: [id number]. Performed By: #### P SASC #### [facility] [address] [place] [address] Dr. Shabnam Rae CBC AUTO DIFFon 12-01-2022 BASO # 0.1 103/ul Normal 0.0-0.1 [facility] Comment on above: Performed By: #### P SASC #### [facility] [address] [place] [address] Dr. Shabnam Rae Basophils/100 WBC (Bld) 1.0 % Normal 0.2-2.0 [facility] Comment on above: Performed By: #### P SASC #### [facility] [address] [place] [address] Dr. Shabnam Rae EO # 0.1 103/ul Normal 0.0-0.7 [facility] Comment on above: Performed By: #### P SASC #### [facility] [address] [place] [address] Dr. Shabnam Rae Eosinophils/100 WBC (Bld) 1.8 % Normal 0.9-7.0 [facility] Comment on above: Performed By: #### P SASC #### [facility] [address] [place] [address] Dr. Shabnam Rae Erythrocyte distribution width (RBC) [Ratio] 14.8 % Normal 11.0-15.0 [facility] Comment on above: Performed By: #### P SASC #### [facility] [address] [place] [address] [address] Shabnam Rae Hematocrit (Bld) [Volume fraction] 49.9 % Normal 42.0-54.0 [facility] Comment on above: Performed By: #### P SASC #### [facility] [address] [place] [address] [address] Shabnam Rae Hemoglobin (Bld) [Mass/Vol] 16.0 g/dL Normal 14.0-18.0 [facility] Comment on above: Performed By: #### P SASC #### [facility] [address] [place] [address] [address] Shabnam Rae IG # 0.04 10e3/ul Critically high 0.00-0.03 [facility] Comment on above: Performed By: #### P SASC #### [facility] [address] [place] [address] Dr. Shabnam Rae IG % 0.6 % Critically high 0.0-0.5 [facility] Comment on above: Performed By: #### P SASC #### [facility] [address] [place] [address] [address] Shabnam Rae LYMPH # 1.0 103/ul Critically low 1.2-3.8 [facility] Comment on above: Performed By: #### P SASC #### [facility] [address] [place] [address] [address] Shabnam Rae Lymphocytes/100 WBC (Bld) 16.2 % Critically low 20.5-60.0 [facility] Comment on above: Performed By: #### P SASC #### [facility] [address] [place] [address] [address] Shabnam Rae MANUAL DIFF REQ NO Normal [facility] Comment on above: Performed By: #### P SASC #### [facility] [address] [address] [address] Shabnam Rae MCH (RBC) [Entitic mass] 27.7 pg Normal 25.9-34.0 [facility] Comment on above: Performed By: #### P SASC #### [facility] [address] [place] [address] [address] Shabnam Rae MCHC (RBC) [Mass/Vol] 32.1 g/dL Normal 29.9-35.2 [facility] Comment on above: Performed By: #### P SASC #### [facility] [address] [address] [address] Shabnam Rae MCV (RBC) [Entitic vol] 86.3 fL Normal 80.0-94.0 [facility] Comment on above: Performed By: #### P SASC #### [facility] [address] [place] [address] [address] Shabnam Rae MONO # 0.5 103/ul Normal 0.3-0.8 [facility] Comment on above: Performed By: #### P SASC #### [facility] [address] [place] [address] Dr. Shabnam Rae Monocytes/100 WBC (Bld) 7.6 % Normal 1.7-12.0 [facility] Comment on above: Performed By: #### P SASC #### [facility] [address] [place] [address] [address] Shabnam Rae NEUT # 4.6 103/ul Normal 1.4-6.5 [facility] Comment on above: Performed By: #### P SASC #### [facility] [address] [place] [address] [address] Shabnam Rae Neutrophils/100 WBC (Bld) 72.8 % Normal 43.0-75.0 [facility] Comment on above: Performed By: #### P SASC #### [facility] [address] [place] [address] [address] Shabnam Rae Platelet mean volume (Bld) [Entitic vol] 9.8 fL Normal 9.5-13.5 [facility] Comment on above: Performed By: #### P SASC #### [facility] [address] [place] [address] [address] Shabnam Rae PLT 203 103/ul Normal 150-450 [facility] Comment on above: Performed By: #### P SASC #### [facility] [address] [place] [address] [address] Shabnam Rae RBC 5.78 106/ul Normal 4.70-6.10 [facility] Comment on above: Performed By: #### P SASC #### [facility] [address] [place] [address] Dr. Shabnam Rae WBC 6.3 103/ul Normal 4.0-11.0 [facility] Comment on above: Performed By: #### P SASC #### [facility] [address] [place] [address] Dr. Shabnam Rae FREE THYROXINE INDEX T7on FTI 2.05 Normal 1.30-4.50 [facility] Comment on above: Performed By: #### T SH, CMP, LIPID, T7, URIC #### [facility] [address] [place] [address] Dr. Shabnam Rae T3U 33.0 % Normal 33.0-40.0 [facility] Comment on above: Performed By: #### T SH, CMP, LIPID, T7, URIC #### [facility] [address] [place] [address] Dr. Shabnam Rae T4 [Mass/Vol] 6.20 ug/dL Normal 4.50-12.10 [facility] Comment on above: Performed By: #### T SH, CMP, LIPID, T7, URIC #### [facility] [address] [place] [address] Dr. Shabnam Rae GLYCOHEMOGLOBIN A1Con 2022 ADA RECOMMENDATION SEE BELOW Normal [facility] Comment on above: Result Comment: ADA RECOMMENDED LIMIT 4.0 - 6.0 ADA THERAPEUTIC TARGET < 7.0 ACTION SUGGESTED > 7.0 Performed By: #### P SASC #### [facility] [address] [place] [address] Dr. Shabnam Rae Glucose [Mass/Vol] 114 mg/dL Normal [facility] Comment on above: Performed By: #### P SASC #### [facility] [address] [place] [address] Dr. Shabnam Rae HbA1c (Bld) [Mass fraction] 5.6 % Normal 4.5-6.2 [facility] Comment on above: Performed By: #### P SASC #### [facility] [address] [place] [address] Dr. Shabnam Rae LIPID PROFILEon 12-01-2022 CHOL-HDL RATIO NORM SEE BELOW Normal [facility] Comment on above: Result Comment: 3.3 - 4.4 LOW RISK 4.4 - 7.1 AVERAGE RISK 7.1 - 11.0 MODERATE RISK >11.0 HIGH RISK Performed By: #### T SH, CMP, LIPID, T7, URIC #### [facility] [address] [place] [address] Dr. Shabnam Rae Cholesterol [Mass/Vol] 176 mg/dL Normal <=200 [facility] Comment on above: Performed By: #### T SH, CMP, LIPID, T7, URIC #### [facility] [address] [place] [address] Dr. Shabnam Rae Cholesterol in HDL [Mass/Vol] 48 mg/dL Normal 40-60 [facility] Comment on above: Performed By: #### T SH, CMP, LIPID, T7, URIC #### [facility] [address] [place] [address] Dr. Shabnam Rae Cholesterol in LDL [Mass/Vol] 108.2 mg/dL Normal [facility] Comment on above: Performed By: #### T SH, CMP, LIPID, T7, URIC #### [facility] [address] [place] [address] Dr. Shabnam Rae Cholesterol.total/Ch olesterol in HDL [Mass ratio] 3.7 {ratio} Normal [facility] Comment on above: Performed By: #### T SH, CMP, LIPID, T7, URIC #### [facility] [address] [place] [address] Dr. Shabnam Rae HDL NORMAL > or = 60 mg/dl - LOW CARDIOVASCULAR RISK <40 mg/dl - HIGH CARDIOVASCULAR RISK Normal [facility] Comment on above: Performed By: #### T SH, CMP, LIPID, T7, URIC #### [facility] [address] [place], [place] [id number] Dr. Shabnam Rae LDL CALC NORMAL SEE BELOW Normal [facility] Comment on above: Result Comment: <100 mg/dl OPTIMAL 100 - 129 mg/dl NEAR OR ABOVE OPTIMAL 130 - 159 mg/dl BORDERLINE HIGH 160 - 189 mg/dl HIGH >190 mg/dl VERY HIGH Performed By: #### T SH, CMP, LIPID, T7, URIC #### [facility] [address] [address] [address] Shabnam Rae Triglyceride [Mass/Vol] 99 mg/dL Normal <=150 [facility] Comment on above: Performed By: #### T SH, CMP, LIPID, T7, URIC #### [facility] [address] [address] [address] Shabnam Rae VLDL CALC 19.8 mg/dL Normal [facility] Comment on above: Performed By: #### T SH, CMP, LIPID, T7, URIC #### [facility] [address] [place] [address] Dr. Shabnam Rae PROF 14(COMP METB)on 023 Albumin [Mass/Vol] 4.1 g/dL Normal 3.4-5.0 [facility] Comment on above: Performed By: #### T SH, CMP, LIPID, T7, URIC #### [facility] [address] [place] [address] Dr. Shabnam Rae Albumin/Globulin [Mass ratio] 1.1 {ratio} Normal [facility] Comment on above: Performed By: #### T SH, CMP, LIPID, T7, URIC #### [facility] [address] [place] [address] Dr. Shabnam Rae ALP [Catalytic activity/Vol] 101 U/L Normal 46-116 [facility] Comment on above: Performed By: #### T SH, CMP, LIPID, T7, URIC #### [facility] [address] [place] [address] Dr. Shabnam Rae ALT [Catalytic activity/Vol] 26 U/L Normal 16-63 [facility] Comment on above: Performed By: #### T SH, CMP, LIPID, T7, URIC #### [facility] [address] [address] [address] Shabnam Rae Anion gap [Moles/Vol] 10.1 mmol/L Normal [facility] Comment on above: Performed By: #### T SH, CMP, LIPID, T7, URIC #### [facility] [address] [place] [address] Dr. Shabnam Rae AST [Catalytic activity/Vol] 19 U/L Normal 15-37 [facility] Comment on above: Performed By: #### T SH, CMP, LIPID, T7, URIC #### [facility] [address] [address] [address] Shabnam Rae Bilirubin [Mass/Vol] 0.8 mg/dL Normal 0.2-1.0 [facility] Comment on above: Performed By: #### T SH, CMP, LIPID, T7, URIC #### [facility] [address] [place] [address] Dr. Shabnam Rae Calcium [Mass/Vol] 9.5 mg/dL Normal 8.5-10.1 [facility] Comment on above: Performed By: #### T SH, CMP, LIPID, T7, URIC #### [facility] [address] [address] [address] Shabnam Rae Chloride [Moles/Vol] 102 mmol/L Normal 98-107 [facility] Comment on above: Performed By: #### T SH, CMP, LIPID, T7, URIC #### [facility] [address] [address] [address] Shabnam Rae CO2 [Moles/Vol] 32.4 mmol/L Critically high 21.0-32.0 [facility] Comment on above: Performed By: #### T SH, CMP, LIPID, T7, URIC #### [facility] [address] [place] [address] Dr. Shabnam Rae Creatinine [Mass/Vol] 1.00 mg/dL Normal 0.70-1.30 [facility] Comment on above: Performed By: #### T SH, CMP, LIPID, T7, URIC #### [facility] [address] [place] [address] Dr. Shabnam Rae EGFR-AF BAHAMIAN >60 Normal >=60 [facility] Comment on above: Performed By: #### T SH, CMP, LIPID, T7, URIC #### [facility] [address] [address] [address] Shabnam Rae EGFR-NON AF BAHAMIAN >60 Normal >=60 [facility] Comment on above: Performed By: #### T SH, CMP, LIPID, T7, URIC #### [facility] [address] [address] [address] Shabnam Rae Globulin (S) [Mass/Vol] 3.8 g/dL Normal [facility] Comment on above: Performed By: #### T SH, CMP, LIPID, T7, URIC #### [facility] [address] [address] [address] Shabnam Rae Glucose [Mass/Vol] 94 mg/dL Normal 74-106 [facility] Comment on above: Performed By: #### T SH, CMP, LIPID, T7, URIC #### [facility] [address] [place] [address] Dr. Shabnam Rae Potassium [Moles/Vol] 3.5 mmol/L Normal 3.5-5.1 [facility] Comment on above: Performed By: #### T SH, CMP, LIPID, T7, URIC #### [facility] [address] [place] [address] Dr. Shabnam Rae Protein [Mass/Vol] 7.9 g/dL Normal 6.4-8.2 [facility] Comment on above: Performed By: #### T SH, CMP, LIPID, T7, URIC #### [facility] [address] [address] [address] Shabnam Rae Sodium [Moles/Vol] 141 mmol/L Normal 136-145 [facility] Comment on above: Performed By: #### T SH, CMP, LIPID, T7, URIC #### [facility] [address] [place] [address] Dr. Shabnam Rae Urea nitrogen [Mass/Vol] 15.0 mg/dL Normal 7.0-18.0 [facility] Comment on above: Performed By: #### T SH, CMP, LIPID, T7, URIC #### [facility] [address] [id number] Shabnam Rae Urea nitrogen/Creatinine [Mass ratio] 15.0 mg/mg Normal [facility] Comment on above: Performed By: #### T SH, CMP, LIPID, T7, URIC #### [facility] [address] [id number] Shabnam Rae TSHon 12-01-2022 TSH 1.504 uIU/mL Normal 0.358-3.[address] [facility] Comment on above: Performed By: #### T SH, CMP, LIPID, T7, URIC #### [facility] [address] [id number] Shabnam Rae URIC ACID SERUMon 12-01-2022 Urate [Mass/Vol] 6.9 mg/dL Normal 3.5-7.2 [facility] Comment on above: Performed By: #### T SH, CMP, LIPID, T7, URIC #### [facility] [address] [id number] Shabnam Rae TESTOSTERONE, TOTALon 2021 Testosterone [Mass/Vol] 244 ng/dL Critically low 264-916 [facility] Comment on above: Result Comment: Adul t male reference interval is based on a population of healthy nonobese males (BMI <30) between 19 and 39 years old. Dima, et.al. JCEM 2017,102;3811-9761. PMID: [id number]. Performed By: #### P SAFREE #### [facility] [address] [address] [address] Shabnam Rae TESTOSTERONE, FREE,DIRECT, T OTALon 03-16-2022 Free Testosterone(Direct) 2.1 pg/mL Critically low 7.2-24.[address] [facility] Comment on above: Result Comment: Perf ormed at: BN Performed By: #### C VDTBH #### [facility] [address] [id number] Shabnam Rae Testosterone [Mass/Vol] 252 ng/dL Critically low 264-916 [facility] Comment on above: Result Comment: Adul t male reference interval is based on a population of healthy nonobese males (BMI <30) between 19 and 39 years old. adia Ch.al. JCEM 2017,102;5843-7700. PMID: [id number]. Performed at: CB Performed By: #### [facility] #### [facility] [address] [address] [address] Shabnam Rae Formson 02-26-2022 Forms [id number] 7#1.00CD:127 Normal [facility] Screenson 02-26-2022 Screens [id number] 7#1.00CD:127 Normal [facility] Screens [id number] #1.00CD:127 Normal [facility] Urology Office/Clinic Noteon 02-26-2022 Urology Office/Clinic [...] qualifying data (more content not included)... Normal [facility] Comment on above: Result Comment: Elec tronically Signed By: Viola Grullon MD\.br\Date and Time Signed: 02/26/22 00:20 EDT\.br\Electronically Co-Signed By: Helen Leung\.br\Date and Time Co-Signed: 02/25/22 11:16 EDT Ambulatory Visit Summaryon 0 02-25-2022 Ambulatory Visit Summary MATTY GARCES :1970 Visit Date:02/25/2022 Ambulatory Visit Instructions Your Diagnosis Hydrocele Varicocele BPH without urinary obstruction Tests Performed Urnls Dip Stick Auto w/o Microscopy POC 26179 Your Care Team Attending Physician - Viola [...] Urnls Dip Stick Auto w/o Microscopy POC 89493 (02/25/2022) Bilirubin Urine Dipstick - Negative Blood Urine Dipstick - Negative Glucose Urine Dipstick - Negative Ketones Urine Dipstick - Negative Leukocytes Urine Dipstick - Negative Nitrite Urine Dipstick - Negative Protein Urine Dipstick - Negative Specific [place] Urine Dipstick - >=1.030 Urine Appearance Urine [...] the hydrocele for any changes. ? Take spxd-cly-jfkazjp and prescription medicines only as told by [...] intended t (more content not included)... Normal [facility] Patient Educationon 02-26-20 Patient Education Urology [...] the hydrocele for any changes. ? Take srxy-xwp-mmzsfbz and prescription medicines only as told by [...] 02/17/2011 Document Revised: 09/10/2018 Document Reviewed: 09/10/2018 [employer] Patient Education ? 2019 [employer]. [facility] ED Note-Physicianon 05-24-20 22 ED Note-Physician [id number] 62#1.00CD:127 Normal [facility] RAD - Ultrasound Reporton RAD - Ultrasound Report [id number] #1.00CD:127 Normal [facility] RAD - CT Reporton 02-02-2022 RAD - CT Report [id number]#1.00CD:127 Normal [facility] RAD - CT Report [id number] 75#1.00CD:127 Normal [facility] CBC AUTO DIFFon 01-05-2022 BASO # 0.0 103/ul Normal 0.0-0.1 [facility] Comment on above: Performed By: #### P SAFREE #### [facility] [address] [address] [address] Shanbam Rae Basophils/100 WBC (Bld) 0.6 % Normal 0.2-2.0 [facility] Comment on above: Performed By: #### P SAFREE #### [facility] [address] [address] [address] Shabnam Rae EO # 0.1 103/ul Normal 0.0-0.7 [facility] Comment on above: Performed By: #### P SAFREE #### [facility] [address] [address] [address] Shabnam Rae Eosinophils/100 WBC (Bld) 2.1 % Normal 0.9-7.0 [facility] Comment on above: Performed By: #### P SAFREE #### [facility] [address] [address] [address] Shabnam Rae Erythrocyte distribution width (RBC) [Ratio] 13.1 % Normal 11.0-15.0 [facility] Comment on above: Performed By: #### P SAFREE #### [facility] [address] [place] [address] Dr. Shabnam Rae Hematocrit (Bld) [Volume fraction] 43.1 % Normal 42.0-54.0 [facility] Comment on above: Performed By: #### P SAFREE #### [facility] [address] [address] [address] Shabnam Rae Hemoglobin (Bld) [Mass/Vol] 13.7 g/dL Critically low 14.0-18.0 [facility] Comment on above: Performed By: #### P SAFREE #### [facility] [address] [address] [address] Shabnam Rae IG # 0.04 10e3/ul Critically high 0.00-0.03 [facility] Comment on above: Performed By: #### P SAFREE #### [facility] [address] [address] [address] Shabnam Rae IG % 0.6 % Critically high 0.0-0.5 [facility] Comment on above: Performed By: #### P SAFREE #### [facility] [address] [address] [address] Shabnam Rae LYMPH # 0.9 103/ul Critically low 1.2-3.8 [facility] Comment on above: Performed By: #### P SAFREE #### [facility] [address] [address] [address] Shabnam Rae Lymphocytes/100 WBC (Bld) 13.1 % Critically low 20.5-60.0 [facility] Comment on above: Performed By: #### P SAFREE #### [facility] [address] [address] [address] Shabnam Rae MANUAL DIFF REQ NO Normal [facility] Comment on above: Performed By: #### P SAFREE #### [facility] [address] [address] [address] Shabnam Rae MCH (RBC) [Entitic mass] 29.5 pg Normal 25.9-34.0 [facility] Comment on above: Performed By: #### P SAFREE #### [facility] [address] [address] [address] Shabnam Rae MCHC (RBC) [Mass/Vol] 31.8 g/dL Normal 29.9-35.2 [facility] Comment on above: Performed By: #### P SAFREE #### [facility] [address] [address] [address] Shabnam Rae MCV (RBC) [Entitic vol] 92.9 fL Normal 80.0-94.0 [facility] Comment on above: Performed By: #### P SAFREE #### [facility] [address] [address] [address] Shabnam Rae MONO # 0.4 103/ul Normal 0.3-0.8 [facility] Comment on above: Performed By: #### P SAFREE #### [facility] [address] [address] [address] Shabnam Rae Monocytes/100 WBC (Bld) 5.4 % Normal 1.7-12.0 [facility] Comment on above: Performed By: #### P SAFREE #### [facility] [address] [place] [address] Dr. Shabnam Rae NEUT # 5.2 103/ul Normal 1.4-6.5 [facility] Comment on above: Performed By: #### P SAFREE #### [facility] [address] [place] [address] Dr. Shabnam Rae Neutrophils/100 WBC (Bld) 78.2 % Critically high 43.0-75.0 [facility] Comment on above: Performed By: #### P SAFREE #### [facility] [address] [address] [address] Shabnam Rae Platelet mean volume (Bld) [Entitic vol] 10.9 fL Normal 9.5-13.5 [facility] Comment on above: Performed By: #### P SAFREE #### [facility] [address] [address] [address] Shabnam Rae PLT 153 103/ul Normal 150-450 [facility] Comment on above: Performed By: #### P SAFREE #### [facility] [address] [place] [address] Dr. Shabnam Rae RBC 4.64 106/ul Critically low 4.70-6.10 [facility] Comment on above: Performed By: #### P SAFREE #### [facility] [address] [address] [address] Shabnam Rae WBC 6.6 103/ul Normal 4.0-11.0 [facility] Comment on above: Performed By: #### P SAFREE #### [facility] [address] [place] [address] Dr. Shabnam Rae CRPon 01-05-2022 CRP 0.9 mg/dL Normal <=1.0 [facility] Comment on above: Performed By: #### P SAFREE #### [facility] [address] [place] [address] Dr. Shabnam Rae PROF 14(COMP METB)on 022 Albumin [Mass/Vol] 3.6 g/dL Normal 3.4-5.0 [facility] Comment on above: Performed By: #### P SAFREE #### [facility] [address] [place] [address] Dr. Shabnam Rae Albumin/Globulin [Mass ratio] 1.0 {ratio} Normal [facility] Comment on above: Performed By: #### P SAFREE #### [facility] [address] [place] [address] Dr. Shabnam Rae ALP [Catalytic activity/Vol] 114 U/L Normal 46-116 [facility] Comment on above: Performed By: #### P SAFREE #### [facility] [address] [address] [address] Shabnam Rae ALT [Catalytic activity/Vol] 26 U/L Normal 16-63 [facility] Comment on above: Performed By: #### P SAFREE #### [facility] [address] [address] [address] Shabnam Rae Anion gap [Moles/Vol] 9.3 mmol/L Normal [facility] Comment on above: Performed By: #### P SAFREE #### [facility] [address] [place] [address] Dr. Shabnam Rae AST [Catalytic activity/Vol] 19 U/L Normal 15-37 [facility] Comment on above: Performed By: #### P SAFREE #### [facility] [address] [address] [address] Shabnam Rae Bilirubin [Mass/Vol] 0.5 mg/dL Normal 0.2-1.0 [facility] Comment on above: Performed By: #### P SAFREE #### [facility] [address] [address] [address] Shabnam Rae Calcium [Mass/Vol] 8.9 mg/dL Normal 8.5-10.1 [facility] Comment on above: Performed By: #### P SAFREE #### [facility] [address] [address] [address] Shabnam Rae Chloride [Moles/Vol] 106 mmol/L Normal 98-107 [facility] Comment on above: Performed By: #### P SAFREE #### [facility] [address] [place] [address] Dr. Shabnam Rae CO2 [Moles/Vol] 30.7 mmol/L Normal 21.0-32.0 [facility] Comment on above: Performed By: #### P SAFREE #### [facility] [address] [address] [address] Shabnam Rae Creatinine [Mass/Vol] 1.15 mg/dL Normal 0.70-1.30 [facility] Comment on above: Performed By: #### P SAFREE #### [facility] [address] [address] [address] Shabnam Rae EGFR-AF BAHAMIAN >60 Normal >=60 [facility] Comment on above: Performed By: #### P SAFREE #### [facility] [address] [address] [address] Shabnam Rae EGFR-NON AF BAHAMIAN >60 Normal >=60 [facility] Comment on above: Performed By: #### P SAFREE #### [facility] [address] [place] [address] Dr. Shabnam Rae Globulin (S) [Mass/Vol] 3.6 g/dL Normal [facility] Comment on above: Performed By: #### P SAFREE #### [facility] [address] [address] [address] Shabnam Rae Glucose [Mass/Vol] 117 mg/dL Critically high 74-[address] [facility] Comment on above: Performed By: #### P SAFREE #### [facility] [address] [address] [address] Shabnam Rae Potassium [Moles/Vol] 4.0 mmol/L Normal 3.5-5.1 [facility] Comment on above: Performed By: #### P SAFREE #### [facility] [address] [address] [address] Shabnam Rae Protein [Mass/Vol] 7.2 g/dL Normal 6.1-8.2 [facility] Comment on above: Performed By: #### P SAFREE #### [facility] [address] [place] [address] Dr. Shabnam Rae Sodium [Moles/Vol] 142 mmol/L Normal 136-145 [facility] Comment on above: Performed By: #### P SAFREE #### [facility] [address] [address] [address] Shabnam Rae Urea nitrogen [Mass/Vol] 15.0 mg/dL Normal 7.0-18.0 [facility] Comment on above: Performed By: #### P SAFREE #### [facility] [address] [place] [address] Dr. Shabnam Rae Urea nitrogen/Creatinine [Mass ratio] 13.0 mg/mg Normal [facility] Comment on above: Performed By: #### P SAFREE #### [facility] [address] [place] [address] Dr. Shabnam Rae US SCROTUMon 01-05-2022 US [...] Date: 2022-01-05 08:48 Normal [facility] CBC AUTO DIFFon 01-04-2022 BASO # 0.1 103/ul Normal 0.0-0.1 [facility] Comment on above: Performed By: #### C BC #### [facility] [address] [place] [address] Dr. Shabnam Rae Basophils/100 WBC (Bld) 0.8 % Normal 0.2-2.0 [facility] Comment on above: Performed By: #### C BC #### [facility] [address] [place] [address] Dr. Shabnam Rae EO # 0.1 103/ul Normal 0.0-0.7 [facility] Comment on above: Performed By: #### C BC #### [facility] [address] [place] [address] Dr. Shabnam Rae Eosinophils/100 WBC (Bld) 1.5 % Normal 0.9-7.0 [facility] Comment on above: Performed By: #### C BC #### [facility] [address] [place] [address] Dr. Shabnam Rae Erythrocyte distribution width (RBC) [Ratio] 12.8 % Normal 11.0-15.0 [facility] Comment on above: Performed By: #### C BC #### [facility] [address] [address] [address] Shabnam Rae Hematocrit (Bld) [Volume fraction] 40.3 % Critically low 42.0-54.0 [facility] Comment on above: Performed By: #### C BC #### [facility] [address] [address] [address] Shabnam Rae Hemoglobin (Bld) [Mass/Vol] 13.4 g/dL Critically low 14.0-18.0 [facility] Comment on above: Performed By: #### C BC #### [facility] [address] [address] [address] Shabnam Rae IG # 0.03 10e3/ul Normal 0.00-0.03 [facility] Comment on above: Performed By: #### C BC #### [facility] [address] [place] [address] Dr. Shabnam Rae IG % 0.5 % Normal 0.0-0.5 [facility] Comment on above: Performed By: #### C BC #### [facility] [address] [place] [address] Dr. Shabnam Rae LYMPH # 1.0 103/ul Critically low 1.2-3.8 [facility] Comment on above: Performed By: #### C BC #### [facility] [address] [place] [address] Dr. Shabnam Rae Lymphocytes/100 WBC (Bld) 16.4 % Critically low 20.5-60.0 [facility] Comment on above: Performed By: #### C BC #### [facility] [address] [place] [address] Dr. Shabnam Rae MANUAL DIFF REQ NO Normal [facility] Comment on above: Performed By: #### C BC #### [facility] [address] [place] [address] Dr. Shabnam Rae MCH (RBC) [Entitic mass] 29.5 pg Normal 25.9-34.0 [facility] Comment on above: Performed By: #### C BC #### [facility] [address] [address] [address] Shabnam Rae MCHC (RBC) [Mass/Vol] 33.3 g/dL Normal 29.9-35.2 [facility] Comment on above: Performed By: #### C BC #### [facility] [address] [address] [address] Shabnam Rae MCV (RBC) [Entitic vol] 88.8 fL Normal 80.0-94.0 [facility] Comment on above: Performed By: #### C BC #### [facility] [address] [place] [address] Dr. Shabnam Rae MONO # 0.6 103/ul Normal 0.3-0.8 [facility] Comment on above: Performed By: #### C BC #### [facility] [address] [place] [address] Dr. Shabnam Rae Monocytes/100 WBC (Bld) 9.6 % Normal 1.7-12.0 [facility] Comment on above: Performed By: #### C BC #### [facility] [address] [place] [address] Dr. Shabnam Rae NEUT # 4.4 103/ul Normal 1.4-6.5 [facility] Comment on above: Performed By: #### C BC #### [facility] [address] [place] [address] Dr. Shabnam Rae Neutrophils/100 WBC (Bld) 71.2 % Normal 43.0-75.0 [facility] Comment on above: Performed By: #### C BC #### [facility] [address] [place] [address] Dr. Shabnam Rae Platelet mean volume (Bld) [Entitic vol] 10.8 fL Normal 9.5-13.5 [facility] Comment on above: Performed By: #### C BC #### [facility] [address] [place] [address] Dr. Shabnam Rae PLT 158 103/ul Normal 150-450 [facility] Comment on above: Performed By: #### C BC #### [facility] [address] [place], [place] [address] Dr. Shabnam Rae RBC 4.54 106/ul Critically low 4.70-6.10 [facility] Comment on above: Performed By: #### C BC #### [facility] [address] [place], [place] [address] Dr. Shabnam Rae WBC 6.2 103/ul Normal 4.0-11.0 [facility] Comment on above: Performed By: #### C BC #### [facility] [address] [place], [place] [address] ABD/PELV W CONon [...] Date: 2022-01-04 05:19 Normal [facility] CT PELVIS WO CONon 2 CT PELVIS [...] Date: 2022-01-04 08:54 Normal [facility] CULTURE URINEon 01-04-2022 CULTURE URINE Culture Observations: No growth Normal [facility] Comment on above: Performed By: #### P [facility] #### [facility] [address] [place] [address] Dr. Shabnam Rae Covid-19 PCR (CVDTB)on 12-13 SARS-CoV-2 (COVID-19) RNA ELIJAH+probe Ql (Unsp spec) Not detected Normal NOT DETECTED [facility] Comment on above: Result Comment: When diagnostic testing is negative, the possibility of a false negative should be considered in the context of a patient's recent exposures and the presence of clinical signs and symptoms consistent with SARS-CoV-2. This test is not yet approved or cleared by the [place] Food and Drug Administration (FDA). This test was developed by [employer], [place], [place]. The performance characteristics of this test were validated by The [facility]. The results are not intended to be used as the sole means for clinical diagnosis or patient management decisions. The [facility] is authorized under Clinical Laboratory Improvement Amendments [...] for this test is supported by the [employer] of Health and Human Service's declaration that [...] By: #### C VDTBH #### [facility] [address] [place] [address] Dr. Shabnam Rae ER URINE PROFILEon 2 Bilirubin Ql (U) Negative Normal NEGATIVE [facility] Comment on above: Performed By: #### P SASC #### [facility] [address] [place] [address] Dr. Shabnam Rae Clarity (U) CLEAR Normal CLEAR [facility] Comment on above: Performed By: #### P SASC #### [facility] [address] [place] [address] Dr. Shabnam Rae Color (U) YELLOW Normal YELLOW [facility] Comment on above: Performed By: #### P SASC #### [facility] [address] [address] [address] Shabnam HERNANDEZ A micrscopic examination will be performed if indicated. Normal [facility] Comment on above: Performed By: #### P SASC #### [facility] [address] [address] [address] Shabnam Rae Glucose Ql (U) Negative Normal NEGATIVE [facility] Comment on above: Performed By: #### P SASC #### [facility] [address] [address] [address] Shabnam Rae Hemoglobin Ql (U) Negative Normal NEGATIVE [facility] Comment on above: Performed By: #### P SASC #### [facility] [address] [place] [address] Dr. Shabnam Rae Ketones Ql (U) Negative Normal NEGATIVE [facility] Comment on above: Performed By: #### P SASC #### [facility] [address] [address] [address] Shabnam Rae LEUKOCYTES Negative Normal NEGATIVE [facility] Comment on above: Performed By: #### P SASC #### [facility] [address] [address] [address] Shabnam Rae Nitrite Ql (U) Negative Normal NEGATIVE [facility] Comment on above: Performed By: #### P SASC #### [facility] [address] [address] [address] Shabnam Rae pH (U) 6.5 [pH] Normal 5-9 [facility] Comment on above: Performed By: #### P SASC #### [facility] [address] [address] [address] Shabnam Rae SPEC GRAVITY 1.010 Normal 1.005-<=1.025 [facility] Comment on above: Performed By: #### P SASC #### [facility] [address] [address] [address] Shabnam Rae UA PROTEIN Negative Normal NEGATIVE/ TRACE [facility] Comment on above: Performed By: #### P SASC #### [facility] [address] [place] [address] Dr. Shabnam Rae UR MICRO IND NOT INDICATED Normal [facility] Comment on above: Performed By: #### P SASC #### [facility] [address] [place] [address] Dr. Shabnam Rae Urobilinogen Qn (U) 0.2 {Sarai'U}/dL Normal 0.2 - 1. 0 [facility] Comment on above: Performed By: #### P SASC #### [facility] [address] [place] [address] Dr. Shabnam Rae LACTATE/LACTIC ACIDon 2021 Lactate [Moles/Vol] 1.0 mmol/L Normal 0.4-2.0 [facility] Comment on above: Performed By: #### P SASC #### [facility] [address] [place] [address] Dr. Shabnam Rae PROF CHEM 8 (BAS METB)on Anion gap [Moles/Vol] 10.0 mmol/L Normal [facility] Comment on above: Performed By: #### B MP #### [facility] [address] [place] [address] Dr. Shabnam Rae Calcium [Mass/Vol] 8.5 mg/dL Normal 8.5-10.1 [facility] Comment on above: Performed By: #### B MP #### [facility] [address] [place] [address] Dr. Shabnam Rae Chloride [Moles/Vol] 103 mmol/L Normal 98-107 [facility] Comment on above: Performed By: #### B MP #### [facility] [address] [place] [address] Dr. Shabnam Rae CO2 [Moles/Vol] 29.2 mmol/L Normal 21.0-32.0 [facility] Comment on above: Performed By: #### B MP #### [facility] [address] [place] [address] Dr. Shabnam Rae Creatinine [Mass/Vol] 1.25 mg/dL Normal 0.70-1.30 [facility] Comment on above: Performed By: #### B MP #### [facility] [address] [address] [address] Shabnam Rae EGFR-AF BAHAMIAN >60 Normal >=60 [facility] Comment on above: Performed By: #### B MP #### [facility] [address] [address] [address] Shabnam Rae EGFR-NON AF BAHAMIAN >60 Normal >=60 [facility] Comment on above: Performed By: #### B MP #### [facility] [address] [address] [address] Shabnam Rae Glucose [Mass/Vol] 132 mg/dL Critically high 74-[address] [facility] Comment on above: Performed By: #### B MP #### [facility] [address] [address] [address] Shabnam Rae Potassium [Moles/Vol] 3.2 mmol/L Critically low 3.5-5.1 [facility] Comment on above: Performed By: #### B MP #### [facility] [address] [address] [address] Shabnam Rae Sodium [Moles/Vol] 139 mmol/L Normal 136-145 [facility] Comment on above: Performed By: #### B MP #### [facility] [address] [address] [address] Shabnam Rae Urea nitrogen [Mass/Vol] 19.0 mg/dL Critically high 7.0-18.0 [facility] Comment on above: Performed By: #### B MP #### [facility] [address] [address] [address] Shabnam Rae Urea nitrogen/Creatinine [Mass ratio] 15.2 mg/mg Normal [facility] Comment on above: Performed By: #### B MP #### [facility] [address] [address] [address] Shabnam Rae CERVICAL SPINE 2 OR 3 [facility] 07-06-2019 CERVICAL SPINE 2 OR 3 [facility] Department of Radiology [address] [place] [id number] Patient Name: MATTY GARCES : 1970 [...] findings. Electronically signed by:Bernice Hoyt. Transcribed by: [email or web address], User Resident: RADHA CHIN Electronically Signed by: BERNICE HOYT @ 07/06/2019 08:52 PM I personally read this/these film(s) with this resident Normal [facility] Comment on above: Order Comment: , STA T READ , STAT READ , , , Ordering Provider - RADHA VIEIRA MD , CERVICAL SPINE 2 OR 3 [facility] 04-06-2019 CERVICAL SPINE 2 OR 3 [facility] Department of Radiology [address] [place] [id number] Patient Name: MATTY GARCES : 1970 [...] FALLS Exam: CERVICAL SPINE 2 OR 3 [facility] CERVICAL SPINE 2 OR 3 S [...] study. Electronically signed by:Bernice Hoyt. Transcribed by: [email or web address], User Resident: Electronically Signed by: BERNICE HOYT @ 04/06/2019 04:40 PM Normal [facility] Comment on above: Order Comment: AP/LA T, ODONTOID PLEASE DO SWIMMER'S VIEW FOLLOW UP HARDWARE AND ALIGNMENT, S/P ACDF, RECENT FALLS CERVICAL SPINE 2 OR 3 [facility] 02-17-2019 CERVICAL SPINE 2 OR 3 [facility] Department of Radiology [address] [place] [id number] Patient Name: MATTY GARCES : 1970 [...] findings. Electronically signed by:Jasmyn King. Transcribed by: [email or web address], User Resident: EMILE TINAJERO Electronically Signed by: JASMYN KING @ 02/20/2019 11:53 AM I personally read this/these film(s) with this resident Normal [facility] Comment on above: Order Comment: C-SPI NE 2 OR 3 VIEW POSTOP, EVALUATION HARDWARE AN ALIGNMENT BASIC METABOLIC PANELon 05-2 Calcium [Mass/Vol] 9.2 mg/dL Normal 8.6-10.3 [place] Comment on above: Order Comment: No: D o not add to previous draw Performed By: #### 5 0103 #### [facility] [address] [place] [address], [place] Chloride [Moles/Vol] 101 mmol/L Normal 98-107 [facility] Comment on above: Order Comment: No: D o not add to previous draw Performed By: #### 5 0103 #### [facility] [address] [place] [address], [place] CO2 [Moles/Vol] 26 mmol/L Normal 21-31 [facility] Comment on above: Order Comment: No: D o not add to previous draw Performed By: #### 5 0103 #### [facility] [address] [place] [address], [place] Creatinine [Mass/Vol] 1.02 mg/dL Normal 0.70-1.30 [facility] Comment on above: Order Comment: No: D o not add to previous draw Performed By: #### 5 0103 #### [facility] [address] [place] [address], [place] GFR/1.73 sq M predicted among blacks MDRD (S/P/Bld) [Vol rate/Area] mL/min/{1.73_m2} Normal >60 [facility] Comment on above: Order Comment: No: D o not add to previous draw Performed By: #### 5 0103 #### [facility] [address] [place] [address], [facility] GFR/1.73 sq M predicted among non-blacks MDRD (S/P/Bld) [Vol rate/Area] mL/min/{1.73_m2} Normal >60 [facility] Comment on above: Order Comment: No: D o not add to previous draw Performed By: #### 5 0103 #### [facility] [address] [place] [address], [facility] Glucose [Mass/Vol] 124 mg/dL High 70-100 The [facility] [place] Comment on above: Order Comment: No: D o not add to previous draw Performed By: #### 5 0103 #### [facility] [address] [place] [address], [facility] Potassium [Moles/Vol] 3.9 mmol/L Normal 3.5-5.1 [facility] Comment on above: Order Comment: No: D o not add to previous draw Performed By: #### 5 0103 #### [facility] [address] [place] [address], [facility] Sodium [Moles/Vol] 137 mmol/L Normal 136-145 [facility] Comment on above: Order Comment: No: D o not add to previous draw Performed By: #### 5 0103 #### [facility] [address] [place] [address], [facility] Urea nitrogen [Mass/Vol] 15 mg/dL Normal 7-25 [facility] Comment on above: Order Comment: No: D o not add to previous draw Performed By: #### 5 0103 #### [facility] [address] [place] [address], [facility] CBC COMPLETE BLOOD COUNTon 0 - Erythrocyte distribution width (RBC) [Ratio] 13.9 % Normal 11.5-15.0 [facility] Comment on above: Order Comment: No: D o not add to previous draw Performed By: #### 5 0103 #### [facility] [address] [place] [address], [facility] Hematocrit (Bld) [Volume fraction] 50.0 % Normal 39.0-50.0 [facility] Comment on above: Order Comment: No: D o not add to previous draw Performed By: #### 5 0103 #### [facility] [address] [place] [id number], [facility] Hemoglobin (Bld) [Mass/Vol] 16.0 g/dL Normal 13.0-17.0 [facility] Comment on above: Order Comment: No: D o not add to previous draw Performed By: #### 5 0103 #### [facility] [address] [place] [id number], [facility] MCH (RBC) [Entitic mass] 27.5 pg Normal 27.0-33.0 [facility] Comment on above: Order Comment: No: D o not add to previous draw Performed By: #### 5 0103 #### [facility] [address] [place] [address], [facility] MCHC (RBC) [Mass/Vol] 32.0 g/dL Normal 32.0-35.0 [facility] Comment on above: Order Comment: No: D o not add to previous draw Performed By: #### 5 0103 #### [facility] [address] [place] [address], [facility] MCV (RBC) [Entitic vol] 85.9 fL Normal 82.0-98.0 [facility] Comment on above: Order Comment: No: D o not add to previous draw Performed By: #### 5 0103 #### [facility] [address] [place] [id number], [facility] Nucleated RBC/100 WBC (Bld) [Ratio] 0 % Normal 0-0 [facility] Comment on above: Order Comment: No: D o not add to previous draw Performed By: #### 5 0103 #### [facility] [address] [place] [address], [facility] PLAT CNT 249 10*3/uL Normal 150-400 [facility] Comment on above: Order Comment: No: D o not add to previous draw Performed By: #### 5 0103 #### [facility] [address] [place] [address], [facility] RBC (Bld) [#/Vol] 5.82 10*6/uL High 4.20-5.70 [facility] Comment on above: Order Comment: No: D o not add to previous draw Performed By: #### 5 0103 #### [facility] [address] [place] [address], [facility] WBC (Bld) [#/Vol] 15.85 10*3/uL High 4.00-10.60 [facility] Comment on above: Order Comment: No: D o not add to previous draw Performed By: #### 5 0103 #### [facility] [address] Operative Reporton 9 Operative Report MR#: [id number] I [facility] Pt. Name: Matty Garces Room #: [id number] Discharge Date: Birthdate: 1970 OPERATIVE REPORT DATE OF SURGERY: 01/30/2019 SURGEON: Radha Vieira M.D. 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 POSTOPERATIVE DIAGNOSIS: Failed instrumentation at C6-7 on the right. REAL ESTATE UTILIZATION OFFICER: ADENIKE Lugo. ANESTHESIA: Endotracheal, Hogan. PROCEDURES: Redo [...] Vieira M.D. Date Trans: 01/31/2019 02:31 Eze/sasha [id number] cc: Venus Mendez M.D. [address] [place] [address] Normal [facility] CERVICAL SPINE 2 OR 3 [facility] 01-30-2019 CERVICAL SPINE 2 [facility] Department of Radiology [address] [place] [address] Patient Name: MATTY GARCES : 1970 Sex: M Age: Race: White Pt. Location: Patient Status: O Ordered Date: 01/30/2019 7:05:00 AM Completed Date: 01/30/2019 04:12 PM Requesting Provider: RADHA VIEIRA Attending Provider: RADHA VIEIRA Report Copy To: Signs & Symptoms: C6-7 ACDF History: C6-7 ACDF Comments: C6-7 ACDF Exam: CERVICAL SPINE 2 OR 3 [facility] CERVICAL SPINE 2 OR 3 [facility] 01/30/2019 4:12 PM EDT SIGNS AND SYMPTOMS: C6-7 ACDF TECHNOLOGIST COMMENTS: Intra op ACDF C6-7 with , 30 sec of fluoro time used QUESTION FOR THE RADIOLOGIST: C6-7 ACDF PROTOCOLS: AP, Odontoid and Lateral views were obtained. COMPARISON: None FINDINGS: 5 images were obtained. Fluoroscopic time as utilized above. IMPRESSION: For documentation Electronically signed by:Liz Montano. Transcribed by: [email or web address], User Resident: Electronically Signed by: LIZ MONTANO @ 01/30/2019 04:18 PM Normal [facility] Comment on above: Order Comment: C6-7 ACDF POC GLUCOSE LABon 01-30-2019 Glucose [Mass/Vol] 106 mg/dL High 70-100 [facility] Comment on above: Performed By: #### 5 0103 #### [facility] [address] [facility]. [address] *MRSA/MSSA DNA NASALon 01-23 *MRSA/MSSA DNA NASAL Clinical Report: (D ) Specimen: NASAL SWAB Collected: 01/23/2019 15:02 Status: Final Last Updated: 01/23/2019 20:14 MSSA DNA (Final) Methicillin Susceptible Staphylococcus aureus DNA Detected MRSA DNA (Final) No Methicillin Resistant Staphylococcus aureus DNA Detected Normal [facility] Comment on above: Performed By: #### 5 0103 #### [facility] [address] [facility]. [address] APTTon 01-23-2019 aPTT Coag (Bld) [Time] 35.4 s High 25.0-35.0 [facility] Comment on above: Result Comment: ALL [...] THIS PURPOSE. Performed By: #### 5 7307, 58917 #### [facility] [address] [place] [address], [facility] BASIC METABOLIC PANELon 01-11 Calcium [Mass/Vol] 9.5 mg/dL Normal 8.6-10.3 [facility] Comment on above: Performed By: #### 5 7307, 71008 #### [facility] [address] [facility] [place] [address], [facility] Chloride [Moles/Vol] 101 mmol/L Normal 98-107 [facility] Comment on above: Performed By: #### 5 7306, 57740 #### [facility] [address] [place] [address], [place] CO2 [Moles/Vol] 29 mmol/L Normal 21-31 [facility] Comment on above: Performed By: #### 5 7306, 42723 #### [facility] [address] [place] [address], [place] Creatinine [Mass/Vol] 1.08 mg/dL Normal 0.70-1.30 [facility] Comment on above: Performed By: #### 5 7306, 57900 #### [facility] [address] [place] [address], [place] GFR/1.73 sq M predicted among blacks MDRD (S/P/Bld) [Vol rate/Area] mL/min/{1.73_m2} Normal >60 [facility] Comment on above: Performed By: #### 5 7306, 18972 #### [facility] [address] [place] [address], [place] GFR/1.73 sq M predicted among non-blacks MDRD (S/P/Bld) [Vol rate/Area] mL/min/{1.73_m2} Normal >60 [facility] Comment on above: Performed By: #### 5 7306, 48477 #### [facility] [address] [place] [address], [place] Glucose [Mass/Vol] 87 mg/dL Normal 70-100 [place] Comment on above: Performed By: #### 5 7306, 82150 #### [facility] [address] [place] [address], [place] Potassium [Moles/Vol] 4.0 mmol/L Normal 3.5-5.1 [facility] Comment on above: Performed By: #### 5 7307, 69961 #### [facility] [address] [facility] [place] [address], [facility] Sodium [Moles/Vol] 137 mmol/L Normal 136-145 [facility] Comment on above: Performed By: #### 5 73, 15308 #### [facility] [address] [facility] [place] [address], [facility] Urea nitrogen [Mass/Vol] 12 mg/dL Normal 7-25 [facility] Comment on above: Performed By: #### 5 73, 35646 #### [facility] [address] [facility] [place] [address], [facility] CBC W/DIFFon 01-23-2019 ABS BASOPHILS 0.1 10*3/uL Normal 0.0-0.2 [facility] Comment on above: Performed By: #### 5 73, 92321 #### [facility] [address] [facility]. [address] ABS IMM GRANS 0.0 10*3/uL Normal 0.0-0.2 [facility] Comment on above: Performed By: #### 5 73, 45251 #### [facility] [address] [facility] [place] [address], [facility] ABS NEUTROPHILS 5.3 10*3/uL Normal 1.6-7.6 The [facility] Comment on above: Performed By: #### 5 7307, 40857 #### [facility] [address] [facility] [place] [address], [facility] Basophils/100 WBC (Bld) 0.9 % Normal 0.0-1.0 [facility] Comment on above: Performed By: #### 5 7307, 98794 #### [facility] [address] [facility] [place] [address], [facility] Eosinophils (Bld) [#/Vol] 0.2 10*3/uL Normal 0.0-0.5 [facility] Comment on above: Performed By: #### 5 7306, 90887 #### [facility] [address] [place] [address], [facility] Eosinophils/100 WBC (Bld) 2.3 % Normal 0.0-6.0 [facility] Comment on above: Performed By: #### 5 7306, 55779 #### [facility] [address] [place] [address], [facility] Erythrocyte distribution width (RBC) [Ratio] 13.8 % Normal 11.5-15.0 [facility] Comment on above: Performed By: #### 5 7306, 48550 #### [facility] [address] [place] [address], [facility] Hematocrit (Bld) [Volume fraction] 49.6 % Normal 39.0-50.0 [facility] Comment on above: Performed By: #### 5 7306, 92363 #### [facility] [address] [place] [address], [facility] Hemoglobin (Bld) [Mass/Vol] 16.4 g/dL Normal 13.0-17.0 [facility] Comment on above: Performed By: #### 5 7306, 95691 #### [facility] [address] [place] [address], [facility] IMMATURE GRANS 0.5 % Normal 0.0-1.0 [facility] Comment on above: Performed By: #### 5 7306, 51809 #### [facility] [address] [place] [address], [facility] Lymphocytes (Bld) [#/Vol] 1.2 10*3/uL Normal 1.2-4.0 [facility] Comment on above: Performed By: #### 5 7306, 12818 #### [facility] [address] [place] [id number], [facility] Lymphocytes/100 WBC (Bld) 16.6 % Low 20.0-45.0 [facility] Comment on above: Performed By: #### 7306, 16008 #### [facility] [address] [place] [address], [facility] MCH (RBC) [Entitic mass] 27.8 pg Normal 27.0-33.0 [facility] Comment on above: Performed By: #### 5 7306, 05436 #### [facility] [address] MCHC (RBC) [Mass/Vol] 33.1 g/dL Normal 32.0-35.0 [facility] Comment on above: Performed By: #### 5 7306, 59023 #### [facility] [address] [place] [address], [facility] MCV (RBC) [Entitic vol] 84.2 fL Normal 82.0-98.0 [facility] Comment on above: Performed By: #### 5 7306, 44800 #### [facility] [address] [facility] [place] [address], [facility] Monocytes (Bld) [#/Vol] 0.7 10*3/uL Normal 0.1-1.0 [facility] Comment on above: Performed By: #### 5 7306, 40477 #### [facility] [address] [place] [address], [facility] MONOS 9.4 % Normal 5.0-12.0 [facility] Comment on above: Performed By: #### 5 7306, 94830 #### [facility] [address] [place] [address], [facility] Neutrophils/100 WBC (Bld) 70.3 % Normal 40.0-72.0 [facility] Comment on above: Performed By: #### 7306, 82508 #### [facility] [address] [place] [address], [facility] Nucleated RBC/100 WBC (Bld) [Ratio] 0 % Normal 0-0 [facility] Comment on above: Performed By: #### 5 7307, 73058 #### [facility] [address] [place] [address], [facility] PLAT CNT 235 10*3/uL Normal 150-400 [facility] Comment on above: Performed By: #### 5 7307, 81389 #### [facility] [address] RBC (Bld) [#/Vol] 5.89 10*6/uL High 4.20-5.70 [facility] Comment on above: Performed By: #### 5 7307, 45921 #### [facility] [address] WBC (Bld) [#/Vol] 7.48 10*3/uL Normal 4.00-10.60 [facility] Comment on above: Performed By: #### 5 7307, 86092 #### [facility] [address] PROTHROMBIN TIMEon 9 INR Coag (PPP) [Relative time] 1.12 {INR} Normal 0.91-1.16 [facility] Comment on above: Result Comment: ACCC [...] CHEST 1995;108:231S-246S. Performed By: #### 5 7307, 63040 #### [facility] [address] PT Coag (PPP) [Time] 14.4 s Normal 12.3-14.8 [facility] Comment on above: Result Comment: ALL RESULTS MUST BE INTERPRETED WITH RESPECT TO BLOOD DRAWING ARTIFACT OR DILUTION ERROR OF ANTICOAGULANT AT THE TIME OF SAMPLING. Performed By: #### 5 7307, 02153 #### [facility] [address] TYPE AND SCREENon 01-23-2019 ABO INTERPRETATION A Normal [facility] Comment on above: Performed By: #### 5 7307, 82936 #### [facility] [address] [place] [address], [facility] RH INTERPRETATION Positive Normal The [facility] Comment on above: Performed By: #### 5 7307, 67112 #### [facility] [address] 3D CERVICAL SPINE WO CONT RASTon 01-12-2019 CT 3D CERVICAL SPINE WO CONTRAST [facility] Department of Radiology [address] [place] [phone] Patient Name: MATTY GARCES : 1970 Sex: M Age: Race: White Pt. Location: Patient Status: D Ordered Date: 01/10/2019 2:15:00 PM Completed Date: 01/12/2019 10:32 AM Requesting Provider: RADHA VIEIRA Attending Provider: RADHA VIEIRA Report Copy To: VENUS MENDEZ Signs & Symptoms: M48.02 Spinal stenosis, cervical region I10 History: Ursula para auth # [id number] 01/10/19-02/09/19 [id number] *er Comments: Exam: CT 3D CERVICAL SPINE [...] incomplete Electronically signed by:Ten Garland. Transcribed by: [email or web address], User Resident: Electronically Signed by: TEN GARLAND @ 01/13/2019 09:18 AM [place] [facility] CERVICAL SPINE 2 OR 3 [facility] 01-05-2019 CERVICAL SPINE 2 OR 3 [facility] Department of Radiology [address] [place] [phone] Patient Name: MATTY GARCES : 1970 Sex: M Age: Race: White Pt. Location: Patient Status: O Ordered Date: 01/05/2019 9:00:00 AM Completed Date: 01/05/2019 09:06 AM Requesting Provider: RADHA VIEIRA Attending Provider: RADHA VIEIRA Report Copy To: Signs & Symptoms: M48.02 Spinal stenosis, cervical region I10 History: Gregory Comments: , , , Ordering Provider - RADHA VIEIRA MD , Exam: CERVICAL SPINE 2 OR 3 [facility] CERVICAL SPINE 2 OR 3 S [...] findings. Electronically signed by:Ten Garland. Transcribed by: [email or web address], User Resident: KYLEIGH DELA CRUZ Electronically Signed by: TEN GARLAND @ 01/05/2019 12:37 PM I personally read this/these film(s) with this resident Normal [facility] Comment on above: Order Comment: , , = ========= , Ordering Provider - RADHA VIEIRA MD , CERVICAL SPINE 2 OR 3 [facility] 08-30-2018 CERVICAL SPINE 2 OR 3 [facility] Department of Radiology [address] [place] [phone] Patient Name: MATTY GARCES : 1970 Sex: M Age: Race: White Pt. Location: Patient Status: O Ordered Date: 08/30/2018 9:35:00 AM Completed Date: 08/30/2018 09:43 AM Requesting Provider: RADHA VIEIRA Attending Provider: RADHA VIEIRA Report Copy To: VENUS MENDEZ Signs & Symptoms: M50.90 Cervical disc disorder, unsp, unspecified cervical region I10 History: Gregory Comments: , POST OP XRAY AP/LAT ONLY [...] findings. Electronically signed by:Jasmyn King. Transcribed by: [email or web address], User Resident: RYAN HEAD Electronically Signed by: JASMYN KING @ 08/30/2018 05:45 PM I personally read this/these film(s) with this resident Normal [facility] Comment on above: Order Comment: , POS T OP XRAY AP/LAT ONLY , POST OP XRAY AP/LAT ONLY , , , Ordering Provider - RADHA VIEIRA MD , Operative Reporton 8 Operative Report MR#: [id number] I [facility] Pt. Name: Matty Garces Room #: [id number] Discharge Date: Birthdate: 1970 OPERATIVE REPORT DATE OF SURGERY: 08/17/2018 SURGEON: Radha Vieira M.D. PREOPERATIVE DIAGNOSIS: Herniated cervical disk at C6-7. POSTOPERATIVE DIAGNOSIS: Herniated cervical disk at C6-7. REAL ESTATE UTILIZATION OFFICER: ADENIKE Larios. ANESTHESIA: Endotracheal, Braida. PROCEDURE: Anterior [...] Vieira M.D. Date Trans: 08/17/2018 11:25 P/sasha [id number] cc: Venus Mendez M.D. [address], [facility] [phone] [place] [facility] CERVICAL SPINE 2 OR 3 [facility] 08-17-2018 CERVICAL SPINE 2 OR 3 [facility] Department of Radiology [address] [place] [address] Patient Name: MATTY GARCES : 1970 Sex: M Age: Race: White Pt. Location: Patient Status: I Ordered Date: 08/17/2018 8:30:00 AM Completed Date: 08/17/2018 11:49 AM Requesting Provider: RADHA VIEIRA Attending Provider: RADHA VIEIRA Report Copy To: Signs & Symptoms: C6-7 ACDF with History: C6-7 ACDF with Comments: C6-7 ACDF with Exam: CERVICAL SPINE 2 OR 3 [facility] CERVICAL SPINE 2 OR 3 S [...] findings. Electronically signed by:Bernice Hoyt. Transcribed by: [email or web address], User Resident: EMILE TINAJERO Electronically Signed by: BERNICE HOYT @ 08/18/2018 01:06 PM I personally read this/these film(s) with this resident Normal [facility] Comment on above: Order Comment: C6-7 ACDF with POC GLUCOSE LABon 08-17-2018 Glucose [Mass/Vol] 113 mg/dL High 70-100 [facility] Comment on above: Performed By: #### 8 5499 #### [facility] [address] [facility]. [address] RBC'S 2 UNITSon 08-17-2018 CROSSMATCH INTERP 1 COMP Normal The [facility] Comment on above: Performed By: #### 8 6002 #### [facility] [address] [facility]. [address] CROSSMATCH INTERP 2 COMP Normal [facility] Comment on above: Performed By: #### 8 6002 #### [facility] [address] [facility]. [address] PRODUCT CODE 1 E0336 Normal [facility] Comment on above: Performed By: #### 8 6002 #### [facility] [address] [facility] [place] [address], [facility] PRODUCT CODE 2 E0336 Normal [facility] Comment on above: Performed By: #### 8 6002 #### [facility] [address] [place] [address], [facility] PRODUCT STATUS 1 RE Normal [facility] Comment on above: Result Comment: Resu lt changed by IF on 08/20/2018 07:48. The previous value was XM. Performed By: #### 8 6002 #### [facility] [address] [place] [address], [facility] PRODUCT STATUS 2 RE Normal [facility] Comment on above: Result Comment: Resu lt changed by IF on 08/20/2018 07:48. The previous value was XM. Performed By: #### 8 6002 #### [facility] [address] [place] [address], [place] UNIT ABO 1 A Normal [facility] Comment on above: Performed By: #### 8 6002 #### [facility] [address] [place] [address], [place] UNIT ABO 2 A Normal [facility] Comment on above: Performed By: #### 8 6002 #### [facility] [address] [place] [address], [place] UNIT ID 1 [id number] Normal The [facility] Comment on above: Performed By: #### 8 6002 #### [facility] [address] [place] [address], [facility] UNIT ID 2 [id number] Normal [facility] Comment on above: Performed By: #### 8 6002 #### [facility] [address] [place] [address], [place] UNIT RH 1 Positive Normal [facility] Comment on above: Performed By: #### 8 6002 #### [facility] [address] [place] [address], [place] UNIT RH 2 Positive Normal [facility] Comment on above: Performed By: #### 8 6002 #### [facility] [address] [place] [address], [facility] *MRSA/MSSA CULTUREon 08-02- 018 *MRSA/MSSA CULTURE Clinical Report: (D) Specimen: NASAL SWAB Collected: 08/02/2018 12:37 Status: Final Last Updated: 08/03/2018 14:26 ISO (Final) No Methicillin Resistant Staphylococcus aureus Isolated (MRSA) ISO (Final) Methicillin Sensitive Staphylococcus aureus (MSSA) Isolated Normal [facility] Comment on above: Performed By: #### 3 1302 #### [facility] [address] APTTon 08-02-2018 aPTT Coag (Bld) [Time] 31.2 s Normal 25.0-35.0 [facility] Comment on above: Result Comment: ALL [...] THIS PURPOSE. Performed By: #### 5 [id number], [id number] #### [facility] [address] BASIC METABOLIC PANELon 07-15 Calcium [Mass/Vol] 9.4 mg/dL Normal 8.6-10.3 [place] Comment on above: Performed By: #### 0 0071 #### [facility] [address] [place] [address], [facility] Chloride [Moles/Vol] 103 mmol/L Normal 98-107 [facility] Comment on above: Performed By: #### 0 0071 #### [facility] [address] [place] [address], [facility] CO2 [Moles/Vol] 29 mmol/L Normal 21-31 [facility] Comment on above: Performed By: #### 0 0071 #### [facility] [address] Creatinine [Mass/Vol] 1.06 mg/dL Normal 0.70-1.30 [facility] Comment on above: Performed By: #### 0 0071 #### [facility] [address] [place] [address], [facility] GFR/1.73 sq M predicted among blacks MDRD (S/P/Bld) [Vol rate/Area] mL/min/{1.73_m2} Normal >60 [facility] Comment on above: Performed By: #### 0 0071 #### [facility] [address] [place] [address], [facility] GFR/1.73 sq M predicted among non-blacks MDRD (S/P/Bld) [Vol rate/Area] mL/min/{1.73_m2} Normal >60 [facility] Comment on above: Performed By: #### 0 0071 #### [facility] [address] [place] [address], [facility] Glucose [Mass/Vol] 84 mg/dL Normal 70-100 [facility] Comment on above: Performed By: #### 0 0071 #### [facility] [address] [place] [address], [facility] Potassium [Moles/Vol] 4.0 mmol/L Normal 3.5-5.1 [facility] Comment on above: Performed By: #### 0 0071 #### [facility] [address] [place] [address], [place] Sodium [Moles/Vol] 140 mmol/L Normal 136-145 [facility] Comment on above: Performed By: #### 0 0071 #### [facility] [address] [place] [address], [facility] Urea nitrogen [Mass/Vol] 20 mg/dL Normal 7-25 [facility] Comment on above: Performed By: #### 0 0071 #### [facility] [address] [place] [address], [place] CBC W/DIFFon 08-02-2018 ABS BASOPHILS 0.1 10*3/uL Normal 0.0-0.2 [facility] Comment on above: Performed By: #### 5 0103 #### [facility] [address] [place] [address], [facility] ABS IMM GRANS 0.1 10*3/uL Normal 0.0-0.2 [facility] Comment on above: Performed By: #### 5 0103 #### [facility] [address] [facility] [place] [address], [facility] ABS NEUTROPHILS 4.2 10*3/uL Normal 1.6-7.6 [facility] Comment on above: Performed By: #### 5 0103 #### [facility] [address] [facility] [place] [address], [facility] Basophils/100 WBC (Bld) 1.3 % High 0.0-1.0 [facility] Comment on above: Performed By: #### 5 0103 #### [facility] [address] [facility] [place] [address], [facility] Eosinophils (Bld) [#/Vol] 0.1 10*3/uL Normal 0.0-0.5 [facility] Comment on above: Performed By: #### 5 0103 #### [facility] [address] [place] [address], [facility] Eosinophils/100 WBC (Bld) 2.0 % Normal 0.0-6.0 [facility] Comment on above: Performed By: #### 5 0103 #### [facility] [address] [facility] Erythrocyte distribution width (RBC) [Ratio] 13.6 % Normal 11.5-15.0 [facility] Comment on above: Performed By: #### 5 0103 #### [facility] [address] [place] [address], [facility] Hematocrit (Bld) [Volume fraction] 44.3 % Normal 39.0-50.0 [facility] Comment on above: Performed By: #### 5 0103 #### [facility] [address] [facility] [place] [address], [facility] Hemoglobin (Bld) [Mass/Vol] 15.1 g/dL Normal 13.0-17.0 [facility] Comment on above: Performed By: #### 5 3 #### [facility] [address] [place] [address], [facility] IMMATURE GRANS 1.1 % High 0.0-1.0 [facility] Comment on above: Performed By: #### 3 #### [facility] [address] [place] [address], [facility] Lymphocytes (Bld) [#/Vol] 1.2 10*3/uL Normal 1.2-4.0 [facility] Comment on above: Performed By: #### 5 3 #### [facility] [address] Lymphocytes/100 WBC (Bld) 18.3 % Low 20.0-45.0 [facility] Comment on above: Performed By: #### 5 3 #### [facility] [address] [place] [address], [facility] MCH (RBC) [Entitic mass] 29.0 pg Normal 27.0-33.0 [facility] Comment on above: Performed By: #### 5 3 #### [facility] [address] [place] [address], [facility] MCHC (RBC) [Mass/Vol] 34.1 g/dL Normal 32.0-35.0 [facility] Comment on above: Performed By: #### 5 3 #### [facility] [address] [place] [address], [facility] MCV (RBC) [Entitic vol] 85.0 fL Normal 82.0-98.0 [facility] Comment on above: Performed By: #### 0103 #### [facility] [address] [place] [address], [facility] Monocytes (Bld) [#/Vol] 0.7 10*3/uL Normal 0.1-1.0 [facility] Comment on above: Performed By: #### 102 #### [facility] [address] [facility] [place] [address], [facility] MONOS 11.1 % Normal 5.0-12.0 [facility] Comment on above: Performed By: #### 102 #### [facility] [address] [facility] [place] [address], [facility] Neutrophils/100 WBC (Bld) 66.2 % Normal 40.0-72.0 [facility] Comment on above: Performed By: #### 102 #### [facility] [address] [facility] [place] [address], [facility] Nucleated RBC/100 WBC (Bld) [Ratio] 0 % Normal 0-0 [facility] Comment on above: Performed By: #### 102 #### [facility] [address] [facility] [place] [address], [facility] PLAT CNT 179 10*3/uL Normal 150-400 [facility] Comment on above: Performed By: #### 102 #### [facility] [address] [facility] [place] [address], [facility] RBC (Bld) [#/Vol] 5.21 10*6/uL Normal 4.20-5.70 [facility] Comment on above: Performed By: #### 102 #### [facility] [address] [facility] [place] [address], [facility] WBC (Bld) [#/Vol] 6.39 10*3/uL Normal 4.00-10.60 [facility] Comment on above: Performed By: #### 3 #### [address] CERVICAL SPINE 4 OR 5 VIEWSo n 08-02-2018 CERVICAL SPINE 4 OR 5 VIEWS [facility] Department of Radiology [address] [place] [id number] Patient Name: MATTY GARCES : 1970 [...] findings. Electronically signed by:Jasmyn King. Transcribed by: [email or web address], User Resident: EMILE TINAJERO Electronically Signed by: JASMYN KING @ 08/03/2018 11:58 AM I personally read this/these film(s) with this resident Normal [facility] Comment on above: Order Comment: , PRE OP XRAY AP/LAT \EANDE\ FLEX/EX , PREOP XRAY AP/LAT \EANDE\ FLEX/EX , , , Ordering Provider - RADHA VIEIRA MD , PROTHROMBIN TIMEon 8 INR Coag (PPP) [Relative time] 1.15 {INR} Normal 0.91-1.16 [facility] Comment on above: Result Comment: ACCC [...] CHEST 1995;[id number]. Performed By: #### 5 7307, [id number] #### [facility] [address] [place] [address], [facility] PT Coag (PPP) [Time] 14.7 s Normal 12.3-14.8 [facility] Comment on above: Result Comment: ALL RESULTS MUST BE INTERPRETED WITH RESPECT TO BLOOD DRAWING ARTIFACT OR DILUTION ERROR OF ANTICOAGULANT AT THE TIME OF SAMPLING. Performed By: #### 5 [id number], [id number] #### [facility] [address] [place] [address], [facility] TYPE AND SCREENon 08-02-2018 ABO INTERPRETATION A Normal [facility] Comment on above: Order Comment: 2 uni ts 2 units 2 units 2 units 2 units Performed By: #### 6 2586 #### [facility] [address] [place] [address], [facility] RH INTERPRETATION Positive Normal [facility] Comment on above: Order Comment: 2 uni ts 2 units 2 units 2 units 2 units Performed By: #### 6 2586 #### [facility] [address] [place] [address], [facility] URINALYSIS REFLEXon 08-02-20 18 Appearance (U) CLEAR Normal CLEAR [facility] Comment on above: Performed By: #### 3 0965 #### [facility] [address] [place] [address], [facility] Bilirubin [Mass/Vol] Negative Normal NEGATIVE [facility] Comment on above: Performed By: #### 3 0965 #### [facility] [address] [place] [address], [facility] BLOOD Negative Normal NEGATIVE [facility] Comment on above: Performed By: #### 3 0965 #### [facility] [address] [place] [address], [facility] Color (U) YELLOW Normal YELLOW [facility] Comment on above: Performed By: #### 3 0965 #### [facility] [address] [place] [address], [place] Glucose [Mass/Vol] 150 mg/dL Abnormal NEGATIVE [facility] Comment on above: Performed By: #### 3 0965 #### [facility] [address] [place] [address], [facility] KETONE Negative Normal NEGATIVE [facility] Comment on above: Performed By: #### 3 0965 #### [facility] [address] [place] [address], [place] Negative Normal NEGATIVE [facility] Comment on above: Performed By: #### 3 0965 #### [facility] [address] [facility] [place] [address], [facility] MICRO NOT DONE negative chemical reactions unless requested in original order Normal [facility] Comment on above: Performed By: #### 3 0965 #### [facility] [address] [facility] [place] [address], [place] Nitrite Ql (U) Negative Normal NEGATIVE [facility] Comment on above: Performed By: #### 3 0965 #### [facility] [address] [facility] [place] [address], [facility] pH (Bld) 5.0 Normal 5.0-8.0 [facility] Comment on above: Performed By: #### 3 0965 #### [facility] [address] [facility] [place] [address], [facility] Protein (U) [Mass/Vol] Negative Normal NEGATIVE [facility] Comment on above: Performed By: #### 3 0965 #### [facility] [address] [place] [address], [facility] SPEC GRAV 1.024 High 1.015-1.020 [facility] Comment on above: Performed By: #### 3 0965 #### [facility] [address] [place] [address], [facility] Vital Signs Date Time Vital Sign Value Performing Clinician Molly bunn 02-25-2022 10:30-0400 Blood Pressure Location Viola Lue [facility] 02-25-2022 10:30-0400 Diastolic blood pressure 107 mm[Hg] Viola Lue [facility] 02-25-2022 10:30-0400 Heart rate 74 /min Viola Lue [facility] 02-25-2022 10:30-0400 Respiratory rate 16 /min Viola Lue [facility] [email or web address] 02-25-2022 10:30-0400 Systolic blood pressure 157 mm[Hg] Viola Lue [facility] Encounters Encounter Date Encounter Type Care Provider Facility Start: 11-29-2023 End: 11-30-2023 ambulatory Diallo Beauchamp MD [facility] Start: 10-18-2023 End: 10-19-2023 ambulatory Diallo Beauchamp MD [facility] Start: 09-27-2023 End: 09-27-2023 ambulatory RUBÉN GEIGER Not Available Start: 08-30-2023 End: 08-31-2023 ambulatory Diallo Beauchamp MD Facility:[facility] Start: 07-12-2023 End: 07-13-2023 ambulatory Diallo Beauchamp MD Facility:[facility] Start: 06-14-2023 End: 06-15-2023 ambulatory Diallo Beauchamp MD Facility:[facility] Start: 03-11-2023 End: 03-11-2023 ambulatory Rubén Geiger Facility:[facility] Start: 12-06-2022 End: 12-06-[address] VENUS MENDEZ . Facility:[facility] Start: 12-05-2022 Encounter for genera l adult medical examination without abnormal findings DR VENUS MENDEZ . [facility] Start: 12-01-2022 End: 12-02-[address] [...] encounter procedure Viola Grullon [facility] Start: 01-04-2022 End: 01-05-[address] VENUS MENDEZ . Facility: Start: 01-30-2019 End: 02-01-2019 Evaluation and management of inpatient PROVIDER UNKNOWN Facility:[facility] Start: 08-17-2018 End: 08-18-2018 Patient encounter procedure PROVIDER UNKNOWN Facility:[facility] Procedures Date Procedure Procedure Detail Performing Clinician Start: 12-01-[address] FRANKLIN MENDEZ . Comment on above: Performed By: #### P [facility] #### [facility] [address] [place] [address] Dr. Shabnam Rae Start: 01-30-2019 FUSION CERV JT W INT BD FUS DEV, ANT APPR A COL, OPEN [facility] Start: 01-30-2019 REMOVAL OF INT FIX F ROM CERVCAL VERTEBRA, OPEN APPROACH [facility] Start: 01-23-2019 Antibody screen PROVIDE R UNKNOWN Comment on above: Performed By: #### 5 [id number], [id number] #### [facility] [address] Start: 08-17-2018 ANESTH SPINE CORD SURGERY [...] Performed By: #### 6 2586 #### [facility] [address] Colonoscopy Viola Grullon Hemorrhoids (disorder) Viola Lue Hernia of abdominal cavity (disorder) Viola TouchMaile Tonsillectomy Viola TouchMaillucy Payers Date Payer Category Payer Self-pay 2022 Medicaid [id number] 2022 Unknown 1970 Unknown [id number] 2.16.8 [id number] 1970 Unknown [id number] 2.16.8 [id number] 1970 Unknown [id number] 2.16.84 0.1.967606.3.579.2.593 1970 Unknown [id number] 2.16.84 0.1.161615.3.579.2.593 1970 Unknown [id number] 2.16.84 0.1.153664.3.579.2.593 1970 Unknown [id number] 2.16.84 0.1.802837.3.579.2.593 1970 Unknown [id number] 2.16.84 0.1.497226.3.579.2.593 1970 Unknown [id number] 2.16.84 0.1.918309.3.579.2.593 1970 Unknown [id number] 2.16.84 0.1.573914.3.579.2.1259 1970 Unknown [id number] 2.16. 840.1.890169.3.579.2.196 1970 Unknown [id number] 2.16. 840.1.996990.3.579.2.196 1970 Unknown [id number] 2.16. 840.1.013427.3.579.2.196 1970 Unknown [id number] 2.16. 840.1.104600.3.579.2.196 1970 Unknown [id number] 2.16. 840.1.823089.3.579.2.196 1959 Unknown [id number] Unknown [id number] Unknown [id number] 2.16.8 [id number] Social History Date Type Detail Facility Tobacco smoking status No Smoking Status Entered [facility] Sex Assigned At Male [facility] Functional Status Date Assessment Result Facility 02-25-2022 Functional Status N/A [facility] Progress note 06-09-2023 Note Date & Type Note Facility 06-09-2023 Note [facility] Continue GDMT- Diuretic therapy Monitor daily weights, I&O, fluid restriction 1.5-2L/day, renal function and electrolytes- [facility] Clinical Note 03-26-2022 Note Date & [...] authenticated by: ALVINA CAICEDO Date: 2022-03-26 10:47 [facility] Discharge instructions 02-25-2022 Note Date [...] Watch the hydrocele for any changes. Take [id number] and prescription medicines only as told by [...] 02/17/2011 Document Revised: 09/10/2018 Document Reviewed: 09/10/2018 [employer] Patient Education 2019 [employer]. Follow Up Care 01/28/2022 10:36:35 With:Mitchel DELGADO, [place] Gregorio, URO Address: When: Unknown [facility] Evaluation + Plan note Note Date & Type Note Facility Evaluation + Plan note No data available for this section [facility] Progress note Note Date & Type Note Facility Progress note No data available for this section [facility] Summary Purpose Family History No Family [...] Records Found Hospital Course Note MR#: [id number] [facility] Pt. Name: Matty Garces Admitted: 01/30/2019 Discharged: [...] and content) DATE CREATED AUTHOR 07/19/2019 [facility] DATE CREATED AUTHOR AUTHOR'S ORGANIZ ATION 02/27/2022 [facility] DATE CREATED AUTHOR AUTHOR'S ORGANIZ ATION 12/08/2022 [facility] DATE CREATED AUTHOR AUTHOR'S ORGANIZ ATION 03/17/2023 [facility] DATE CREATED AUTHOR AUTHOR'S ORGANIZ ATION 06/17/2023 [facility] DATE CREATED AUTHOR AUTHOR'S ORGANIZ ATION 09/27/2023 [facility] EPIC DATE CREATED AUTHOR AUTHOR'S ORGANIZ ATION 12/03/2023 [facility] Care Team (unrecognized sect ion and content) Personnel Name: Andrea DELGADO Venus Address: [address] [place] [address] FOR RECORDS PERTAINING TO PATIENTS WHO ARE [...] BE BASED ON THE PRIMARY CLINICAL RECORDS. [employer] [facility]. provides no warranty or guarantee of the accuracy or completeness of information in this document.
[2023-12-19 08:07] LABS: Testosterone 391 ng/dL (264-916)
== END 2023-12-18 11:31 | disposition home or self-care (01) ==
LOC: LAB 11:31
PROVIDERS: PCP Family Medicine; Visit Provider Family Medicine
DX: I10 Essential (primary) hypertension (principal)
CPT/HCPCS: 36415; 84403

== ENCOUNTER 2023-12-24 11:42 | Outpatient (OUT) | payer MEDICAID, SELFPAY ==
--- OUTSIDE RECORDS SUMMARY | 2023-12-24 12:03 | XMS_ITS | CCD ---
Author Organization [facility] Care Team Providers Care Area Cleaner Name Role Phone UNKNOWN, PROVIDER Admitting Unavailable UNKNOWN, PROVIDER Attending Unavailable VENUS MENDEZ Referring Unavailable VENUS MENDEZ Primary Care Unavailable NE Procedure Practitioner Unavailab le UNKNOWN, PROVIDER Surgeon Unavailable NE Procedure Practitioner Unavailab le SANDRA BILL Surgeon Unavailable UNKNOWN, PROVIDER Admitting Unavailable UNKNOWN, PROVIDER Attending Unavailable VNEUS MENDEZ Referring Unavailable VENUS MENDEZ Primary Care Unavailable NE Procedure Practitioner Unavailab le UNKNOWN, PROVIDER Surgeon [...] PADMINI Consulting Unavailable ANGEL JORDAN Consulting Unavailable IMCHAEL CASANOVA Consulting Unavailable HOY ., DR DOONVAN Primary Care Unavailable HOY ., DR DONOVAN [...] source) Aspartame Drug Allergy 08-17-20 18 [facility] Repository (1 source) avoid; Translations: [Unknown] Propensity to adverse reactions (disorder) 08-17-20 [facility] Repository (1 source) vitamin B12; Translations: [cyanocobalamin] Drug Allergy Unknown (qualifier value) [facility] (1 source) Acetaminophen / HYDROcodone Drug Allergy [facility] Repository (1 source) Corticosteroids Drug allergy (disorder) [facility] Rep[facility] (1 source) fentaNYL Drug Allergy [facility] Repository (1 source) Misc-Food; Translations: [Misc-Food] Food allergy (disorder) [facility] Rep[facility] (1 source) Corticosteroids Drug allergy (disorder) 05-14-20 [facility] Repository Medications Current Medications Medication Drug Class(es) [...] 3 Chronic Other aftercare (1 source) 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; 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] Onset: 3 Episodic Other aftercare (1 source) Other usp (current) drug therapy; Translations: [OTH FPC CURRENT [...] spine 5V*on 02-12 XR cervical spine 5V* [facility] Main [place] [id number] XRay Report Signed Patient: Matty Garces MR#: [id number] : 1970 Acct:[id number] Age/Sex: 52 / M ADM Date: 03/11/23 Loc: ICXD Room: Type: [facility] Attending Dr: Rubén Geiger MD Copies to: [...] Crow Contreras M.D.03/11/2023 3:48 PM Dictation Location: [place] [address] Transcribed By: [facility] 03/11/23 1548 Dictated By: Crow Contreras DO 03/11/23 1544 Signed By: 03/11/23 1548 [facility] CT CSPINE WO CONon CT CSPINE WO [...] ANGEL SAID Date: 2022-12-06 06:37 Normal [facility] CT FACIAL BONES WO CONon CT [...] ANGEL SAID Date: 2022-12-06 06:41 Normal [facility] CT HEAD WO CONon 12-06-2022 CT [...] ANGEL SAID Date: 2022-12-06 06:39 Normal [facility] XR ELBOW RT MIN 3 VIEWSon XR ELBOW RT MIN 3 VIEWS Exam: Radiographs: XR ELBOW RT MIN 3 VIEWS Reason for exam: Elbow pain Comparison: None IMPRESSION: Right elbow degenerative changes. Olecranon spur. Remainder of the right elbow is unremarkable. Electronically authenticated by: MICHAEL CASANOVA Date: 2022-12-06 07:22 Normal [facility] XR FOREARM RT 2Von 03-26-202 3 XR FOREARM RT 2V Exam: Radiographs: XR FOREARM RT 2V Reason for exam: Forearm pain Comparison: None IMPRESSION: Mild degenerative changes in the right elbow and wrist. Right forearm is otherwise unremarkable. Electronically authenticated by: MICHAEL CASANOVA Date: 2022-12-06 08:07 Normal [facility] PSA, FREE AND TOTAL RATIOon 12-03-2022 % Free PSA 9.0 % Normal [facility] Comment on above: Result Comment: The [...] men. Performed By: #### P SAFREE #### [facility] [address] [place] [address] [address] Shabnam Rae Prostate specific Ag [Mass/Vol] 5.9 ng/mL Critically high 0.0-4.[address] [facility] Comment on above: Result Comment: Roch lucy ECLIA methodology. . According to the [employer], Serum PSA should decrease and [...] disease. Performed By: #### P SAFREE #### [facility] [address] [place] [address] [address] Shabnam Rae PSA, Free 0.53 ng/mL Normal N/A [facility] Comment on above: Result Comment: Roch e ECLIA methodology. Performed By: #### P SAFREE #### [facility] [address] [place] [address] [address] Shabnam Rae INSULINon 12-02-2022 Insulin 20.2 uIU/mL Normal 2.6-24.9 [facility] Comment on above: Performed By: #### P SASC #### [facility] [address] [place] [address] Dr. Shabnam Rae TESTOSTERONE, TOTALon 2022 Testosterone [Mass/Vol] 256 ng/dL Critically low 264-916 [facility] Comment on above: Result Comment: Adul t male reference interval is based on a population of healthy nonobese males (BMI <30) between 19 and 39 years old. Dima et.al. JCEM 2017,102;4842-9418. PMID: [id number]. Performed By: #### P SASC #### [facility] [address] [place] [address] Dr. Shabnam Rae CBC AUTO DIFFon 12-01-2022 BASO # 0.1 103/ul Normal 0.0-0.[address] [facility] Comment on above: Performed By: #### P SASC #### [facility] [address] [place] [address] Dr. Shabnam Rae Basophils/100 WBC (Bld) 1.0 % Normal 0.2-2.0 [facility] Comment on above: Performed By: #### P SASC #### [facility] [address] [place] [address] Dr. Shabnam Rae EO # 0.1 103/ul Normal 0.0-0.7 [facility] Comment on above: Performed By: #### P SASC #### [facility] [address] [place] [address] Dr. Shabnam Rae Eosinophils/100 WBC (Bld) 1.8 % Normal 0.9-7.0 [facility] Comment on above: Performed By: #### P SASC #### [facility] [address] [place] [address] Dr. Shabnam Rae Erythrocyte distribution width (RBC) [Ratio] 14.8 % Normal 11.0-15.0 [facility] Comment on above: Performed By: #### P SASC #### [facility] [address] [place] [address] [address] Shabnam Rae Hematocrit (Bld) [Volume fraction] 49.9 % Normal 42.0-54.[address] [facility] Comment on above: Performed By: #### P SASC #### [facility] [address] [place] [address] [address] Shabnam Rae Hemoglobin (Bld) [Mass/Vol] 16.0 g/dL Normal 14.0-18.[address] [facility] Comment on above: Performed By: #### P SASC #### [facility] [address] [place] [address] [address] Shabnam Rae IG # 0.04 10e3/ul Critically high 0.00-0.03 [facility] Comment on above: Performed By: #### P SASC #### [facility] [address] [place] [address] Dr. Shabnam Rae IG % 0.6 % Critically high 0.0-0.5 [facility] Comment on above: Performed By: #### P SASC #### [facility] [address] [place] [address] [address] Shabnam Rae LYMPH # 1.0 103/ul Critically low 1.2-3.8 [facility] Comment on above: Performed By: #### P SASC #### [facility] [address] [place] [address] [address] Shabnam Rae Lymphocytes/100 WBC (Bld) 16.2 % Critically low 20.5-60.[address] [facility] Comment on above: Performed By: #### P SASC #### [facility] [address] [place] [address] [address] Shabnam Rae MANUAL DIFF REQ NO Normal [facility] Comment on above: Performed By: #### P SASC #### [facility] [address] [place] [address] [address] Shabnam Rae MCH (RBC) [Entitic mass] 27.7 pg Normal 25.9-34.[address] [facility] Comment on above: Performed By: #### P SASC #### [facility] [address] [place] [address] [address] Shabnam Rae MCHC (RBC) [Mass/Vol] 32.1 g/dL Normal 29.9-35.2 [facility] Comment on above: Performed By: #### P SASC #### [facility] [address] [place] [address] [address] Shabnam Rae MCV (RBC) [Entitic vol] 86.3 fL Normal 80.0-94.0 [facility] Comment on above: Performed By: #### P SASC #### [facility] [address] [place] [address] [address] Shabnam Rae MONO # 0.5 103/ul Normal 0.3-0.8 [facility] Comment on above: Performed By: #### P SASC #### [facility] [address] [place] [address] Dr. Shabnam Rae Monocytes/100 WBC (Bld) 7.6 % Normal 1.7-12.[address] [facility] Comment on above: Performed By: #### P SASC #### [facility] [address] [place] [address] [address] Shabnam Rae NEUT # 4.6 103/ul Normal 1.4-6.[address] [facility] Comment on above: Performed By: #### P SASC #### [facility] [address] [place] [address] [address] Shabnam Rae Neutrophils/100 WBC (Bld) 72.8 % Normal 43.0-75.0 [facility] Comment on above: Performed By: #### P SASC #### [facility] [address] [place] [address] [address] Shabnam Rae Platelet mean volume (Bld) [Entitic vol] 9.8 fL Normal 9.5-13.5 [facility] Comment on above: Performed By: #### P SASC #### [facility] [address] [place] [address] [address] Shabnam Rae PLT 203 103/ul Normal 150-450 [facility] Comment on above: Performed By: #### P SASC #### [facility] [address] [place] [address] [address] Shabnam Rae RBC 5.78 106/ul Normal 4.70-6.10 [facility] Comment on above: Performed By: #### P SASC #### [facility] [address] [place] [address] Dr. Shabnam Rae WBC 6.3 103/ul Normal 4.0-11.[address] [facility] Comment on above: Performed By: #### P SASC #### [facility] [address] [place] [address] Dr. Shabnam Rae FREE THYROXINE INDEX T7on FTI 2.05 Normal 1.30-4.[address] [facility] Comment on above: Performed By: #### T SH, CMP, LIPID, T7, URIC #### [facility] [address] [place] [address] Dr. Shabnam Rae T3U 33.0 % Normal 33.0-40.[address] [facility] Comment on above: Performed By: #### T SH, CMP, LIPID, T7, URIC #### [facility] [address] [place] [address] Dr. Shabnam Rae T4 [Mass/Vol] 6.20 ug/dL Normal 4.50-12.10 [facility] Comment on above: Performed By: #### T SH, CMP, LIPID, T7, URIC #### [facility] [address] [place] [address] Dr. Shabnam Rae GLYCOHEMOGLOBIN A1Con 2022 ADA RECOMMENDATION SEE BELOW Normal [facility] Comment on above: Result Comment: ADA RECOMMENDED LIMIT 4.0 - 6.0 ADA THERAPEUTIC TARGET < 7.0 ACTION SUGGESTED > 7.0 Performed By: #### P SASC #### [facility] [address] [place] [address] Dr. Shabnam Rae Glucose [Mass/Vol] 114 mg/dL Normal [facility] Comment on above: Performed By: #### P SASC #### [facility] [address] [place] [address] Dr. Shabnam Rae HbA1c (Bld) [Mass fraction] 5.6 % Normal 4.5-6.[address] [facility] Comment on above: Performed By: #### P SASC #### [facility] [address] [place] [address] Dr. Shabnam Rae LIPID PROFILEon 12-01-2022 CHOL-HDL RATIO NORM SEE BELOW Normal [facility] Comment on above: Result Comment: 3.3 - 4.4 LOW RISK 4.4 - 7.1 AVERAGE RISK 7.1 - 11.0 MODERATE RISK >11.0 HIGH RISK Performed By: #### T SH, CMP, LIPID, T7, URIC #### [facility] [address] [place] [address] Dr. Shabnam Rae Cholesterol [Mass/Vol] 176 mg/dL Normal <=[address] [facility] Comment on above: Performed By: #### T SH, CMP, LIPID, T7, URIC #### [facility] [address] [place] [address] Dr. Shabnam Rae Cholesterol in HDL [Mass/Vol] 48 mg/dL Normal 40-[address] [facility] Comment on above: Performed By: #### T SH, CMP, LIPID, T7, URIC #### [facility] [address] [place] [address] Dr. Shabnam Rae Cholesterol in LDL [Mass/Vol] 108.2 mg/dL Normal [facility] Comment on above: Performed By: #### T SH, CMP, LIPID, T7, URIC #### [facility] [address] [place] [address] Dr. Shabnam Rae Cholesterol.total/Ch olesterol in HDL [Mass ratio] 3.7 {ratio} Normal [facility] Comment on above: Performed By: #### T SH, CMP, LIPID, T7, URIC #### [facility] [address] [place] [address] Dr. Shabnam Rae HDL NORMAL > or = 60 mg/dl - LOW CARDIOVASCULAR RISK <40 mg/dl - HIGH CARDIOVASCULAR RISK Normal [facility] Comment on above: Performed By: #### T SH, CMP, LIPID, T7, URIC #### [facility] [address] [place], [place] [id number] Dr. Shabnam Rae LDL CALC NORMAL SEE BELOW Normal [facility] Comment on above: Result Comment: <100 mg/dl OPTIMAL 100 - 129 mg/dl NEAR OR ABOVE OPTIMAL 130 - 159 mg/dl BORDERLINE HIGH 160 - 189 mg/dl HIGH >190 mg/dl VERY HIGH Performed By: #### T SH, CMP, LIPID, T7, URIC #### [facility] [address] [place] [address] [address] Shabnam Rae Triglyceride [Mass/Vol] 99 mg/dL Normal <=[address] [facility] Comment on above: Performed By: #### T SH, CMP, LIPID, T7, URIC #### [facility] [address] [place] [address] [address] Shabnam Rae VLDL CALC 19.8 mg/dL Normal [facility] Comment on above: Performed By: #### T SH, CMP, LIPID, T7, URIC #### [facility] [address] [place] [address] Dr. Shabnam Rae PROF 14(COMP METB)on 023 Albumin [Mass/Vol] 4.1 g/dL Normal 3.4-5.0 [facility] Comment on above: Performed By: #### T SH, CMP, LIPID, T7, URIC #### [facility] [address] [place] [address] Dr. Shabnam Rae Albumin/Globulin [Mass ratio] 1.1 {ratio} Normal [facility] Comment on above: Performed By: #### T SH, CMP, LIPID, T7, URIC #### [facility] [address] [place] [address] Dr. Shabnam Rae ALP [Catalytic activity/Vol] 101 U/L Normal 46-[address] [facility] Comment on above: Performed By: #### T SH, CMP, LIPID, T7, URIC #### [facility] [address] [place] [address] Dr. Shabnam Rae ALT [Catalytic activity/Vol] 26 U/L Normal 16-[address] [facility] Comment on above: Performed By: #### T SH, CMP, LIPID, T7, URIC #### [facility] [address] [place] [address] [address] Shabnam Rae Anion gap [Moles/Vol] 10.1 mmol/L Normal [facility] Comment on above: Performed By: #### T SH, CMP, LIPID, T7, URIC #### [facility] [address] [place] [address] Dr. Shabnam Rae AST [Catalytic activity/Vol] 19 U/L Normal 15-[address] [facility] Comment on above: Performed By: #### T SH, CMP, LIPID, T7, URIC #### [facility] [address] [address] [address] Shabnam Rae Bilirubin [Mass/Vol] 0.8 mg/dL Normal 0.2-1.[address] [facility] Comment on above: Performed By: #### T SH, CMP, LIPID, T7, URIC #### [facility] [address] [place] [address] Dr. Shabnam Rae Calcium [Mass/Vol] 9.5 mg/dL Normal 8.5-10.1 [facility] Comment on above: Performed By: #### T SH, CMP, LIPID, T7, URIC #### [facility] [address] [address] [address] Shabnam Rae Chloride [Moles/Vol] 102 mmol/L Normal 98-[address] [facility] Comment on above: Performed By: #### T SH, CMP, LIPID, T7, URIC #### [facility] [address] [address] [address] Shabnam Rae CO2 [Moles/Vol] 32.4 mmol/L Critically high 21.0-32.[address] [facility] Comment on above: Performed By: #### T SH, CMP, LIPID, T7, URIC #### [facility] [address] [place] [address] Dr. Shabnam Rae Creatinine [Mass/Vol] 1.00 mg/dL Normal 0.70-1.[address] [facility] Comment on above: Performed By: #### T SH, CMP, LIPID, T7, URIC #### [facility] [address] [place] [address] Dr. Shabnam Rae EGFR-AF LAO >60 Normal >=60 [facility] Comment on above: Performed By: #### T SH, CMP, LIPID, T7, URIC #### [facility] [address] [address] [address] Shabnam Rae EGFR-NON AF LAO >60 Normal >=[address] [facility] Comment on above: Performed By: #### T SH, CMP, LIPID, T7, URIC #### [facility] [address] [address] [address] Shabnam Rae Globulin (S) [Mass/Vol] 3.8 g/dL Normal [facility] Comment on above: Performed By: #### T SH, CMP, LIPID, T7, URIC #### [facility] [address] [address] [address] Shabnam Rae Glucose [Mass/Vol] 94 mg/dL Normal 74-106 [facility] Comment on above: Performed By: #### T SH, CMP, LIPID, T7, URIC #### [facility] [address] [place] [address] Dr. Shabnam Rae Potassium [Moles/Vol] 3.5 mmol/L Normal 3.5-5.1 [facility] Comment on above: Performed By: #### T SH, CMP, LIPID, T7, URIC #### [facility] [address] [place] [address] Dr. Shabnam Rae Protein [Mass/Vol] 7.9 g/dL Normal 6.4-8.2 [facility] Comment on above: Performed By: #### T SH, CMP, LIPID, T7, URIC #### [facility] [address] [address] [address] Shabnam Rae Sodium [Moles/Vol] 141 mmol/L Normal 136-145 [facility] Comment on above: Performed By: #### T SH, CMP, LIPID, T7, URIC #### [facility] [address] [place] [address] Dr. Shabnam Rae Urea nitrogen [Mass/Vol] 15.0 mg/dL Normal 7.0-18.[address] [facility] Comment on above: Performed By: #### T SH, CMP, LIPID, T7, URIC #### [facility] [address] [id number] Shabnam Rae Urea nitrogen/Creatinine [Mass ratio] 15.0 mg/mg Normal [facility] Comment on above: Performed By: #### T SH, CMP, LIPID, T7, URIC #### [facility] [id number] Shabnam Rae TSHon 12-01-2022 TSH 1.504 uIU/mL Normal 0.358-3.740 [facility] Comment on above: Performed By: #### T SH, CMP, LIPID, T7, URIC #### [facility] [address] [id number] Shabnam Rae URIC ACID SERUMon 12-01-2022 Urate [Mass/Vol] 6.9 mg/dL Normal 3.5-7.2 [facility] Comment on above: Performed By: #### T SH, CMP, LIPID, T7, URIC #### [facility] [id number] Shabnam Rae TESTOSTERONE, TOTALon 2021 Testosterone [Mass/Vol] 244 ng/dL Critically low 264-[address] [facility] Comment on above: Result Comment: Adul t male reference interval is based on a population of healthy nonobese males (BMI <30) between 19 and 39 years old. Dima, et.al. JCEM 2017,102;6026-8191. PMID: [id number]. Performed By: #### P SAFREE #### [facility] [address] [address] [address] Shabnam Rae TESTOSTERONE, FREE,DIRECT, T OTALon 03-16-2022 Free Testosterone(Direct) 2.1 pg/mL Critically low 7.2-24.0 [facility] Comment on above: Result Comment: Perf ormed at: BN Performed By: #### C VDTBH #### [facility] [id number] Shabnam Rae Testosterone [Mass/Vol] 252 ng/dL Critically low 264-916 [facility] Comment on above: Result Comment: Adul t male reference interval is based on a population of healthy nonobese males (BMI <30) between 19 and 39 years old. adia Ch.al. JCEM 2017,102;6446-7942. PMID: [id number]. Performed at: CB Performed By: #### [facility] #### [facility] [address] [address] [address] Shabnam Rae Formson 02-26-2022 Forms [id number] 7#1.00CD:127 Normal [facility] Screenson 02-26-2022 Screens [id number] 7#1.00CD:127 Normal [facility] Screens [id number] #1.00CD:127 Normal [facility] Urology Office/Clinic Noteon 02-26-2022 Urology Office/Clinic [...] qualifying data (more content not included)... Normal [facility] Comment on above: Result Comment: Elec tronically Signed By: Viola Grullon MD\.br\Date and Time Signed: 02/26/22 00:20 EDT\.br\Electronically Co-Signed By: Helen Leung\.br\Date and Time Co-Signed: 02/25/22 11:16 EDT Ambulatory Visit Summaryon 0 02-25-2022 Ambulatory Visit Summary MATTY GARCES :1970 Visit Date:02/25/2022 Ambulatory Visit Instructions Your Diagnosis Hydrocele Varicocele BPH without urinary obstruction Tests Performed Urnls Dip Stick Auto w/o Microscopy POC 74726 Your Care Team Attending Physician - Viola [...] Urnls Dip Stick Auto w/o Microscopy POC 22395 (02/25/2022) Bilirubin Urine Dipstick - Negative Blood Urine Dipstick - Negative Glucose Urine Dipstick - Negative Ketones Urine Dipstick - Negative Leukocytes Urine Dipstick - Negative Nitrite Urine Dipstick - Negative Protein Urine Dipstick - Negative Specific [place] Urine Dipstick - >=1.030 Urine Appearance Urine [...] the hydrocele for any changes. ? Take qzba-dqh-jycrgbw and prescription medicines only as told by [...] intended t (more content not included)... Normal [facility] Patient Educationon 02-26-20 Patient Education Urology [...] the hydrocele for any changes. ? Take zrol-fmr-aihopxb and prescription medicines only as told by [...] 02/17/2011 Document Revised: 09/10/2018 Document Reviewed: 09/10/2018 [employer] Patient Education ? 2019 [employer] [facility] ED Note-Physicianon 05-24-20 22 ED Note-Physician [id number] 62#1.00CD:127 Normal [facility] RAD - Ultrasound Reporton RAD - Ultrasound Report [id number] #1.00CD:127 Normal [facility] RAD - CT Reporton 02-02-2022 RAD - CT Report [id number] 55#1.00CD:127 Normal [facility] RAD - CT Report [id number] 75#1.00CD:127 Normal [facility] CBC AUTO DIFFon 01-05-2022 BASO # 0.0 103/ul Normal 0.0-0.[address] [facility] Comment on above: Performed By: #### P SAFREE #### [facility] [facility] [address] [address] [address] Shabnam Rae Basophils/100 WBC (Bld) 0.6 % Normal 0.2-2.[address] [facility] Comment on above: Performed By: #### P SAFREE #### [facility] [address] [address] [address] Shabnam Rae EO # 0.1 103/ul Normal 0.0-0.[address] [facility] Comment on above: Performed By: #### P SAFREE #### [facility] [address] [address] [address] Shabnam Rae Eosinophils/100 WBC (Bld) 2.1 % Normal 0.9-7.[address] [facility] Comment on above: Performed By: #### P SAFREE #### [facility] [address] [address] [address] Shabnam Rae Erythrocyte distribution width (RBC) [Ratio] 13.1 % Normal 11.0-15.[address] [facility] Comment on above: Performed By: #### P SAFREE #### [facility] [address] [place] [address] Dr. Shabnam Rae Hematocrit (Bld) [Volume fraction] 43.1 % Normal 42.0-54.[address] [facility] Comment on above: Performed By: #### P SAFREE #### [facility] [address] [address] [address] Shabnam Rae Hemoglobin (Bld) [Mass/Vol] 13.7 g/dL Critically low 14.0-18.[address] [facility] Comment on above: Performed By: #### P SAFREE #### [facility] [address] [address] [address] Shabnam Rae IG # 0.04 10e3/ul Critically high 0.00-0.03 [facility] Comment on above: Performed By: #### P SAFREE #### [facility] [address] [address] [address] Shabnam Rae IG % 0.6 % Critically high 0.0-0.5 [facility] Comment on above: Performed By: #### P SAFREE #### [facility] [address] [address] [address] Shabnam Rae LYMPH # 0.9 103/ul Critically low 1.2-3.8 [facility] Comment on above: Performed By: #### P SAFREE #### [facility] [address] [address] [address] Shabnam Rae Lymphocytes/100 WBC (Bld) 13.1 % Critically low 20.5-60.[address] [facility] Comment on above: Performed By: #### P SAFREE #### [facility] [address] [address] [address] Shabnam Rae MANUAL DIFF REQ NO Normal [facility] Comment on above: Performed By: #### P SAFREE #### [facility] [address] [address] [address] Shabnam Rae MCH (RBC) [Entitic mass] 29.5 pg Normal 25.9-34.[address] [facility] Comment on above: Performed By: #### P SAFREE #### [facility] [address] [address] [address] Shabnam Rae MCHC (RBC) [Mass/Vol] 31.8 g/dL Normal 29.9-35.[address] [facility] Comment on above: Performed By: #### P SAFREE #### [facility] [address] [address] [address] Shabnam Rae MCV (RBC) [Entitic vol] 92.9 fL Normal 80.0-94.[address] [facility] Comment on above: Performed By: #### P SAFREE #### [facility] [address] [address] [address] Shabnam Rae MONO # 0.4 103/ul Normal 0.3-0.[address] [facility] Comment on above: Performed By: #### P SAFREE #### [facility] [address] [address] [address] Shabnam Rae Monocytes/100 WBC (Bld) 5.4 % Normal 1.7-12.[address] [facility] Comment on above: Performed By: #### P SAFREE #### [facility] [address] [place] [address] Dr. Shabnam Rae NEUT # 5.2 103/ul Normal 1.4-6.[address] [facility] Comment on above: Performed By: #### P SAFREE #### [facility] [address] [place] [address] Dr. Shabnam Rae Neutrophils/100 WBC (Bld) 78.2 % Critically high 43.0-75.[address] [facility] Comment on above: Performed By: #### P SAFREE #### [facility] [address] [address] [address] Shabnam Rae Platelet mean volume (Bld) [Entitic vol] 10.9 fL Normal 9.5-13.[address] [facility] Comment on above: Performed By: #### P SAFREE #### [facility] [address] [address] [address] Shabnam Rae PLT 153 103/ul Normal 150-450 [facility] Comment on above: Performed By: #### P SAFREE #### [facility] [address] [place] [address] Dr. Shabnam Rae RBC 4.64 106/ul Critically low 4.70-6.10 [facility] Comment on above: Performed By: #### P SAFREE #### [facility] [address] [address] [address] Shabnam Rae WBC 6.6 103/ul Normal 4.0-11.[address] [facility] Comment on above: Performed By: #### P SAFREE #### [facility] [address] [place] [address] Dr. Shabnam Rae CRPon 01-05-2022 CRP 0.9 mg/dL Normal <=1.[address] [facility] Comment on above: Performed By: #### P SAFREE #### [facility] [address] [place] [address] Dr. Shabnam Rae PROF 14(COMP METB)on 022 Albumin [Mass/Vol] 3.6 g/dL Normal 3.4-5.0 [facility] Comment on above: Performed By: #### P SAFREE #### [facility] [address] [place] [address] Dr. Shabnam Rae Albumin/Globulin [Mass ratio] 1.0 {ratio} Normal [facility] Comment on above: Performed By: #### P SAFREE #### [facility] [address] [place] [address] Dr. Shabnam Rae ALP [Catalytic activity/Vol] 114 U/L Normal 46-[address] [facility] Comment on above: Performed By: #### P SAFREE #### [facility] [address] [address] [address] Shabnam Rae ALT [Catalytic activity/Vol] 26 U/L Normal 16-63 [facility] Comment on above: Performed By: #### P SAFREE #### [facility] [address] [address] [address] Shabnam Rae Anion gap [Moles/Vol] 9.3 mmol/L Normal [facility] Comment on above: Performed By: #### P SAFREE #### [facility] [address] [place] [address] Dr. Shabnam Rae AST [Catalytic activity/Vol] 19 U/L Normal 15-[address] [facility] Comment on above: Performed By: #### P SAFREE #### [facility] [address] [address] [address] Shabnam Rae Bilirubin [Mass/Vol] 0.5 mg/dL Normal 0.2-1.[address] [facility] Comment on above: Performed By: #### P SAFREE #### [facility] [address] [address] [address] Shabnam Rae Calcium [Mass/Vol] 8.9 mg/dL Normal 8.5-10.1 [facility] Comment on above: Performed By: #### P SAFREE #### [facility] [address] [address] [address] Shabnam Rae Chloride [Moles/Vol] 106 mmol/L Normal 98-[address] [facility] Comment on above: Performed By: #### P SAFREE #### [facility] [address] [place] [address] Dr. Shabnam Rae CO2 [Moles/Vol] 30.7 mmol/L Normal 21.0-32.0 [facility] Comment on above: Performed By: #### P SAFREE #### [facility] [address] [address] [address] Shabnam Rae Creatinine [Mass/Vol] 1.15 mg/dL Normal 0.70-1.[address] [facility] Comment on above: Performed By: #### P SAFREE #### [facility] [address] [address] [address] Shabnam Rae EGFR-AF LAO >60 Normal >=60 [facility] Comment on above: Performed By: #### P SAFREE #### [facility] [address] [address] [address] Shabnam Rae EGFR-NON AF LAO >60 Normal >=[address] [facility] Comment on above: Performed By: #### P SAFREE #### [facility] [address] [place] [address] Dr. Shabnam Rae Globulin (S) [Mass/Vol] 3.6 g/dL Normal [facility] Comment on above: Performed By: #### P SAFREE #### [facility] [address] [address] [address] Shabnam Rae Glucose [Mass/Vol] 117 mg/dL Critically high 74-106 [facility] Comment on above: Performed By: #### P SAFREE #### [facility] [address] [address] [address] Shabnam Rae Potassium [Moles/Vol] 4.0 mmol/L Normal 3.5-5.[address] [facility] Comment on above: Performed By: #### P SAFREE #### [facility] [address] [address] [address] Shabnam Rae Protein [Mass/Vol] 7.2 g/dL Normal 6.1-8.2 [facility] Comment on above: Performed By: #### P SAFREE #### [facility] [address] [place] [address] Dr. Shabnam Rae Sodium [Moles/Vol] 142 mmol/L Normal 136-145 [facility] Comment on above: Performed By: #### P SAFREE #### [facility] [address] [address] [address] Shabnam Rae Urea nitrogen [Mass/Vol] 15.0 mg/dL Normal 7.0-18.[address] [facility] Comment on above: Performed By: #### P SAFREE #### [facility] [address] [place] [address] Dr. Shabnam Rae Urea nitrogen/Creatinine [Mass ratio] 13.0 mg/mg Normal [facility] Comment on above: Performed By: #### P SAFREE #### [facility] [address] [place] [address] Dr. Shabnam Rae US SCROTUMon 01-05-2022 US [...] ALVINA CAICEDO Date: 2022-01-05 08:48 Normal [facility] CBC AUTO DIFFon 01-04-2022 BASO # 0.1 103/ul Normal 0.0-0.1 [facility] Comment on above: Performed By: #### C BC #### [facility] [address] [place] [address] Dr. Shabnam Rae Basophils/100 WBC (Bld) 0.8 % Normal 0.2-2.0 [facility] Comment on above: Performed By: #### C BC #### [facility] [address] [place] [address] Dr. Shabnam Rae EO # 0.1 103/ul Normal 0.0-0.7 [facility] Comment on above: Performed By: #### C BC #### [facility] [address] [place] [address] Dr. Shabnam Rae Eosinophils/100 WBC (Bld) 1.5 % Normal 0.9-7.0 [facility] Comment on above: Performed By: #### C BC #### [facility] [address] [place] [address] Dr. Shabnam Rae Erythrocyte distribution width (RBC) [Ratio] 12.8 % Normal 11.0-15.0 [facility] Comment on above: Performed By: #### C BC #### [facility] [address] [address] [address] Shabnam Rae Hematocrit (Bld) [Volume fraction] 40.3 % Critically low 42.0-54.[address] [facility] Comment on above: Performed By: #### C BC #### [facility] [address] [address] [address] Shabnam Rae Hemoglobin (Bld) [Mass/Vol] 13.4 g/dL Critically low 14.0-18.[address] [facility] Comment on above: Performed By: #### C BC #### [facility] [address] [address] [address] Shabnam Rae IG # 0.03 10e3/ul Normal 0.00-0.[address] [facility] Comment on above: Performed By: #### C BC #### [facility] [address] [place] [address] Dr. Shabnam Rae IG % 0.5 % Normal 0.0-0.[address] [facility] Comment on above: Performed By: #### C BC #### [facility] [address] [place] [address] Dr. Shabnam Rae LYMPH # 1.0 103/ul Critically low 1.2-3.8 [facility] Comment on above: Performed By: #### C BC #### [facility] [address] [place] [address] Dr. Shabnam Rae Lymphocytes/100 WBC (Bld) 16.4 % Critically low 20.5-60.[address] [facility] Comment on above: Performed By: #### C BC #### [facility] [address] [place] [address] Dr. Shabnam Rae MANUAL DIFF REQ NO Normal [facility] Comment on above: Performed By: #### C BC #### [facility] [address] [place] [address] Dr. Shabnam Rae MCH (RBC) [Entitic mass] 29.5 pg Normal 25.9-34.[address] [facility] Comment on above: Performed By: #### C BC #### [facility] [address] [address] [address] Shabnam Rae MCHC (RBC) [Mass/Vol] 33.3 g/dL Normal 29.9-35.2 [facility] Comment on above: Performed By: #### C BC #### [facility] [address] [address] [address] Shabnam Rae MCV (RBC) [Entitic vol] 88.8 fL Normal 80.0-94.0 [facility] Comment on above: Performed By: #### C BC #### [facility] [address] [place] [address] Dr. Shabnam Rae MONO # 0.6 103/ul Normal 0.3-0.[address] [facility] Comment on above: Performed By: #### C BC #### [facility] [address] [place] [address] Dr. Shabnam Rae Monocytes/100 WBC (Bld) 9.6 % Normal 1.7-12.[address] [facility] Comment on above: Performed By: #### C BC #### [facility] [address] [place] [address] Dr. Shabnam Rae NEUT # 4.4 103/ul Normal 1.4-6.[address] [facility] Comment on above: Performed By: #### C BC #### [facility] [address] [place] [address] Dr. Shabnam Rae Neutrophils/100 WBC (Bld) 71.2 % Normal 43.0-75.0 [facility] Comment on above: Performed By: #### C BC #### [facility] [address] [place] [address] Dr. Shabnam Rae Platelet mean volume (Bld) [Entitic vol] 10.8 fL Normal 9.5-13.5 [facility] Comment on above: Performed By: #### C BC #### [facility] [address] [place] [address] Dr. Shabnam Rae PLT 158 103/ul Normal 150-450 [facility] Comment on above: Performed By: #### C BC #### [facility] [address] [place], [place] [address] Dr. Shabnam Rae RBC 4.54 106/ul Critically low 4.70-6.10 [facility] Comment on above: Performed By: #### C BC #### [facility] [address] [place], [place] [address] Dr. Shabnam Rae WBC 6.2 103/ul Normal 4.0-11.[address] [facility] Comment on above: Performed By: #### C BC #### [facility] [address] [place], [place] [address] ABD/PELV W CONon [...] MAYRA BERNAL Date: 2022-01-04 05:19 Normal [facility] CT PELVIS WO CONon 2 CT PELVIS [...] MANUEL HOUGH Date: 2022-01-04 08:54 Normal [facility] CULTURE URINEon 01-04-2022 CULTURE URINE Culture Observations: No growth Normal [facility] Comment on above: Performed By: #### P [facility] #### [facility] [address] [place] [address] Dr. Shabnam Rae Covid-19 PCR (CVDTB)on 12-13 SARS-CoV-2 (COVID-19) RNA ELIJAH+probe Ql (Unsp spec) Not detected Normal NOT DETECTED [facility] Comment on above: Result Comment: When diagnostic testing is negative, the possibility of a false negative should be considered in the context of a patient's recent exposures and the presence of clinical signs and symptoms consistent with SARS-CoV-2. This test is not yet approved or cleared by the [place] Food and Drug Administration (FDA). This test was developed by [employer], [place], [place]. The performance characteristics of this test were validated by [facility]. The results are not intended to be used as the sole means for clinical diagnosis or patient management decisions. [facility] is authorized under Clinical Laboratory Improvement [...] for this test is supported by the [employer] of Health and Human Service's declaration [...] used). Performed By: #### C VDTBH #### [facility] [address] [place] [address] Dr. Shabnam Rae ER URINE PROFILEon 2 Bilirubin Ql (U) Negative Normal NEGATIVE [facility] Comment on above: Performed By: #### P SASC #### [facility] [address] [place] [address] Dr. Shabnam Rae Clarity (U) CLEAR Normal CLEAR [facility] Comment on above: Performed By: #### P SASC #### [facility] [address] [place] [address] Dr. Shabnam Rae Color (U) YELLOW Normal YELLOW [facility] Comment on above: Performed By: #### P SASC #### [facility] [address] [address] [address] Shabnam HERNANDEZ A micrscopic examination will be performed if indicated. Normal [facility] Comment on above: Performed By: #### P SASC #### [facility] [address] [address] [address] Shabnam Rae Glucose Ql (U) Negative Normal NEGATIVE [facility] Comment on above: Performed By: #### P SASC #### [facility] [address] [address] [address] Shabnam Rae Hemoglobin Ql (U) Negative Normal NEGATIVE [facility] Comment on above: Performed By: #### P SASC #### [facility] [address] [place] [address] Dr. Shabnam Rae Ketones Ql (U) Negative Normal NEGATIVE [facility] Comment on above: Performed By: #### P SASC #### [facility] [address] [address] [address] Shabnam Rae LEUKOCYTES Negative Normal NEGATIVE [facility] Comment on above: Performed By: #### P SASC #### [facility] [address] [address] [address] Shabnam Rae Nitrite Ql (U) Negative Normal NEGATIVE [facility] Comment on above: Performed By: #### P SASC #### [facility] [address] [address] [address] Shabnam Rae pH (U) 6.5 [pH] Normal 5-[address] [facility] Comment on above: Performed By: #### P SASC #### [facility] [address] [address] [address] Shabnam Rae SPEC GRAVITY 1.010 Normal 1.005-<=1.025 [facility] Comment on above: Performed By: #### P SASC #### [facility] [address] [address] [address] Shabnam Rae UA PROTEIN Negative Normal NEGATIVE/ TRACE [facility] Comment on above: Performed By: #### P SASC #### [facility] [address] [place] [address] Dr. Shabnam Rae UR MICRO IND NOT INDICATED Normal [facility] [place] [facility] Comment on above: Performed By: #### P SASC #### [facility] [address] [place] [address] Dr. Shabnam Rae Urobilinogen Qn (U) 0.2 {Sarai'U}/dL Normal 0.2 - 1. [address] [facility] Comment on above: Performed By: #### P SASC #### [facility] [address] [place] [address] Dr. Shabnam Rae LACTATE/LACTIC ACIDon 2021 Lactate [Moles/Vol] 1.0 mmol/L Normal 0.4-2.0 [facility] Comment on above: Performed By: #### P SASC #### [facility] [address] [place] [address] Dr. Shabnam Rae PROF CHEM 8 (BAS METB)on Anion gap [Moles/Vol] 10.0 mmol/L Normal [facility] Comment on above: Performed By: #### B MP #### [facility] [address] [place] [address] Dr. Shabnam Rae Calcium [Mass/Vol] 8.5 mg/dL Normal 8.5-10.1 [facility] Comment on above: Performed By: #### B MP #### [facility] [address] [place] [address] Dr. Shabnam Rae Chloride [Moles/Vol] 103 mmol/L Normal 98-107 [facility] Comment on above: Performed By: #### B MP #### [facility] [address] [place] [address] Dr. Shabnam Rae CO2 [Moles/Vol] 29.2 mmol/L Normal 21.0-32.0 [facility] Comment on above: Performed By: #### B MP #### [facility] [address] [place] [address] Dr. Shabnam Rae Creatinine [Mass/Vol] 1.25 mg/dL Normal 0.70-1.[address] [facility] Comment on above: Performed By: #### B MP #### [facility] [address] [address] [address] Shabnam Rae EGFR-AF LAO >60 Normal >=60 [facility] Comment on above: Performed By: #### B MP #### [facility] [address] [address] [address] Shabnam Rae EGFR-NON AF LAO >60 Normal >=[address] [facility] Comment on above: Performed By: #### B MP #### [facility] [address] [address] [address] Shabnam Rae Glucose [Mass/Vol] 132 mg/dL Critically high 74-106 [facility] Comment on above: Performed By: #### B MP #### [facility] [address] [address] [address] Shabnam Rae Potassium [Moles/Vol] 3.2 mmol/L Critically low 3.5-5.[address] [facility] Comment on above: Performed By: #### B MP #### [facility] [address] [address] [address] Shabnam Rae Sodium [Moles/Vol] 139 mmol/L Normal 136-145 [facility] Comment on above: Performed By: #### B MP #### [facility] [address] [address] [address] Shabnam Rae Urea nitrogen [Mass/Vol] 19.0 mg/dL Critically high 7.0-18.[address] [facility] Comment on above: Performed By: #### B MP #### [facility] [address] [address] [address] Shabnam Rae Urea nitrogen/Creatinine [Mass ratio] 15.2 mg/mg Normal [facility] Comment on above: Performed By: #### B MP #### [facility] [address] [address] [address] Shabnam Rae CERVICAL SPINE 2 OR 3 [facility] 07-06-2019 CERVICAL SPINE 2 OR 3 [facility] Department of Radiology [address] [place] [id number] Patient Name: MATTY GARCES : 1970 [...] findings. Electronically signed by:Bernice Hoyt. Transcribed by: [email or web address], User Resident: RADHA CHIN Electronically Signed by: BERNICE HOYT @ 07/06/2019 08:52 PM I personally read this/these film(s) with this resident Normal [facility] Comment on above: Order Comment: , STA T READ , STAT READ , , , Ordering Provider - RADHA VIEIRA MD , CERVICAL SPINE 2 OR 3 [facility] 04-06-2019 CERVICAL SPINE 2 OR 3 [facility] Department of Radiology [address] [place] [id number] Patient Name: MATTY GARCES : 1970 [...] FALLS Exam: CERVICAL SPINE 2 OR 3 [facility] CERVICAL SPINE 2 OR 3 S [...] study. Electronically signed by:Bernice Hoyt. Transcribed by: [id number], User Resident: Electronically Signed by: BERNICE HOYT @ 04/06/2019 04:40 PM Normal [facility] Comment on above: Order Comment: AP/LA T, ODONTOID PLEASE DO SWIMMER'S VIEW FOLLOW UP HARDWARE AND ALIGNMENT, S/P ACDF, RECENT FALLS CERVICAL SPINE 2 OR 3 [facility] 02-17-2019 CERVICAL SPINE 2 OR 3 [facility] Department of Radiology [address] [place] [id number] Patient Name: MATTY GARCES : 1970 [...] findings. Electronically signed by:Jasmyn King. Transcribed by: [email or web address], User Resident: EMILE TINAJERO Electronically Signed by: JASMYN KING @ 02/20/2019 11:53 AM I personally read this/these film(s) with this resident Normal [facility] Comment on above: Order Comment: C-SPI NE 2 OR 3 VIEW POSTOP, EVALUATION HARDWARE AN ALIGNMENT BASIC METABOLIC PANELon 05-2 Calcium [Mass/Vol] 9.2 mg/dL Normal 8.6-10.3 [facility] Comment on above: Order Comment: No: D o not add to previous draw Performed By: #### 5 0103 #### [facility] [address] [place] [address], [place] Chloride [Moles/Vol] 101 mmol/L Normal 98-107 [facility] Comment on above: Order Comment: No: D o not add to previous draw Performed By: #### 5 0103 #### [facility] [address] [place] [address], [place] CO2 [Moles/Vol] 26 mmol/L Normal 21-31 [facility] Comment on above: Order Comment: No: D o not add to previous draw Performed By: #### 5 0103 #### [facility] [address] [place] [address], [place] Creatinine [Mass/Vol] 1.02 mg/dL Normal 0.70-1.30 [facility] Comment on above: Order Comment: No: D o not add to previous draw Performed By: #### 5 0103 #### [facility] [address] [place] [address], [place] GFR/1.73 sq M predicted among blacks MDRD (S/P/Bld) [Vol rate/Area] mL/min/{1.73_m2} Normal >60 [facility] Comment on above: Order Comment: No: D o not add to previous draw Performed By: #### 5 0103 #### [facility] [address] [place] [address], [facility] GFR/1.73 sq M predicted among non-blacks MDRD (S/P/Bld) [Vol rate/Area] mL/min/{1.73_m2} Normal >60 [facility] Comment on above: Order Comment: No: D o not add to previous draw Performed By: #### 5 0103 #### [facility] [address] [place] [address], [facility] Glucose [Mass/Vol] 124 mg/dL High 70-100 [facility] Comment on above: Order Comment: No: D o not add to previous draw Performed By: #### 5 0103 #### [facility] [address] [place] [address], [facility] Potassium [Moles/Vol] 3.9 mmol/L Normal 3.5-5.1 [facility] Comment on above: Order Comment: No: D o not add to previous draw Performed By: #### 5 0103 #### [facility] [address] [place] [address], [facility] Sodium [Moles/Vol] 137 mmol/L Normal 136-145 [facility] Comment on above: Order Comment: No: D o not add to previous draw Performed By: #### 5 0103 #### [facility] [address] [place] [address], [facility] Urea nitrogen [Mass/Vol] 15 mg/dL Normal 7-25 [facility] Comment on above: Order Comment: No: D o not add to previous draw Performed By: #### 5 0103 #### [facility] [address] [place] [address], [facility] CBC COMPLETE BLOOD COUNTon 0 - Erythrocyte distribution width (RBC) [Ratio] 13.9 % Normal 11.5-15.0 [facility] Comment on above: Order Comment: No: D o not add to previous draw Performed By: #### 5 0103 #### [facility] [address] [place] [address], [facility] Hematocrit (Bld) [Volume fraction] 50.0 % Normal 39.0-50.0 [facility] Comment on above: Order Comment: No: D o not add to previous draw Performed By: #### 5 0103 #### [facility] [address] [place] [id number], [facility] Hemoglobin (Bld) [Mass/Vol] 16.0 g/dL Normal 13.0-17.0 [facility] Comment on above: Order Comment: No: D o not add to previous draw Performed By: #### 5 0103 #### [facility] [address] [place] [id number], [facility] MCH (RBC) [Entitic mass] 27.5 pg Normal 27.0-33.0 [facility] Comment on above: Order Comment: No: D o not add to previous draw Performed By: #### 5 0103 #### [facility] [address] [place] [address], [facility] MCHC (RBC) [Mass/Vol] 32.0 g/dL Normal 32.0-35.0 [facility] Comment on above: Order Comment: No: D o not add to previous draw Performed By: #### 5 0103 #### [facility] [address] [place] [address], [facility] MCV (RBC) [Entitic vol] 85.9 fL Normal 82.0-98.0 [facility] Comment on above: Order Comment: No: D o not add to previous draw Performed By: #### 5 0103 #### [facility] [address] [place] [id number], [facility] Nucleated RBC/100 WBC (Bld) [Ratio] 0 % Normal 0-0 [facility] Comment on above: Order Comment: No: D o not add to previous draw Performed By: #### 5 0103 #### [facility] [address] [place] [address], [facility] PLAT CNT 249 10*3/uL Normal 150-[address] [facility] Comment on above: Order Comment: No: D o not add to previous draw Performed By: #### 5 0103 #### [facility] [address] [place] [address], [facility] RBC (Bld) [#/Vol] 5.82 10*6/uL High 4.20-5.70 [facility] Comment on above: Order Comment: No: D o not add to previous draw Performed By: #### 5 0103 #### [facility] [address] [place] [address], [facility] WBC (Bld) [#/Vol] 15.85 10*3/uL High 4.00-10.60 [facility] Comment on above: Order Comment: No: D o not add to previous draw Performed By: #### 5 0103 #### [facility] [address] Operative Reporton 9 Operative Report MR#: [id number] [facility] Pt. Name: Matty Garces Room #: [id number] Discharge Date: Birthdate: 1970 OPERATIVE REPORT DATE OF SURGERY: 01/30/2019 SURGEON: Radha Vieira M.D. 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 POSTOPERATIVE DIAGNOSIS: Failed instrumentation at C6-7 on the right. SAWMILL PRODUCTION WORKER: ADENIKE Lugo. ANESTHESIA: Endotracheal, Hogan. PROCEDURES: Redo [...] Vieira M.D. Date Trans: 01/31/2019 02:31 Eze/sasha [id number] cc: Venus Mendez M.D. [address] [place] [address] Normal [facility] CERVICAL SPINE 2 OR 3 [facility] 01-30-2019 CERVICAL SPINE 2 OR 3 [facility] Department of Radiology [address] [place] [address] Patient Name: MATTY GARCES : 1970 Sex: M Age: Race: White Pt. Location: Patient Status: O Ordered Date: 01/30/2019 7:05:00 AM Completed Date: 01/30/2019 04:12 PM Requesting Provider: RADHA VIEIRA Attending Provider: RADHA VIEIRA Report Copy To: Signs & Symptoms: C6-7 ACDF History: C6-7 ACDF Comments: C6-7 ACDF Exam: CERVICAL SPINE 2 OR 3 [facility] CERVICAL SPINE 2 OR 3 [facility] 01/30/2019 4:12 PM EDT SIGNS AND SYMPTOMS: C6-7 ACDF TECHNOLOGIST COMMENTS: Intra op ACDF C6-7 with , 30 sec of fluoro time used QUESTION FOR THE RADIOLOGIST: C6-7 ACDF PROTOCOLS: AP, Odontoid and Lateral views were obtained. COMPARISON: None FINDINGS: 5 images were obtained. Fluoroscopic time as utilized above. IMPRESSION: For documentation Electronically signed by:Liz Montano. Transcribed by: [email or web address], User Resident: Electronically Signed by: LIZ MONTANO @ 01/30/2019 04:18 PM Normal [facility] Comment on above: Order Comment: C6-7 ACDF POC GLUCOSE LABon 01-30-2019 Glucose [Mass/Vol] 106 mg/dL High 70-100 [facility] Comment on above: Performed By: #### 5 0103 #### [facility] [address] [facility]. [address] *MRSA/MSSA DNA NASALon 01-23 *MRSA/MSSA DNA NASAL Clinical Report: (D ) Specimen: NASAL SWAB Collected: 01/23/2019 15:02 Status: Final Last Updated: 01/23/2019 20:14 MSSA DNA (Final) Methicillin Susceptible Staphylococcus aureus DNA Detected MRSA DNA (Final) No Methicillin Resistant Staphylococcus aureus DNA Detected Normal [facility] Comment on above: Performed By: #### 5 0103 #### [facility] [address] [facility]. [address] APTTon 01-23-2019 aPTT Coag (Bld) [Time] 35.4 s High 25.0-35.0 [facility] Comment on above: Result Comment: ALL RESULTS [...] THIS PURPOSE. Performed By: #### 5 7307, 96784 #### [facility] [address] [place] [address], [facility] BASIC METABOLIC PANELon 01-11 Calcium [Mass/Vol] 9.5 mg/dL Normal 8.6-10.3 [facility] Comment on above: Performed By: #### 5 7307, 94205 #### [facility] [address] [facility] [place] [address], [facility] Chloride [Moles/Vol] 101 mmol/L Normal 98-107 [facility] Comment on above: Performed By: #### 5 7306, 23076 #### [facility] [address] [place] [address], [place] CO2 [Moles/Vol] 29 mmol/L Normal 21-31 [facility] Comment on above: Performed By: #### 5 7306, 89857 #### [facility] [address] [place] [address], [place] Creatinine [Mass/Vol] 1.08 mg/dL Normal 0.70-1.30 [facility] Comment on above: Performed By: #### 5 7306, 05991 #### [facility] [address] [place] [address], [place] GFR/1.73 sq M predicted among blacks MDRD (S/P/Bld) [Vol rate/Area] mL/min/{1.73_m2} Normal >60 [facility] Comment on above: Performed By: #### 5 7306, 435[address] #### [facility] [address] [place] [address], [place] GFR/1.73 sq M predicted among non-blacks MDRD (S/P/Bld) [Vol rate/Area] mL/min/{1.73_m2} Normal >60 [facility] Comment on above: Performed By: #### 5 7306, 24753 #### [facility] [address] [place] [address], [place] Glucose [Mass/Vol] 87 mg/dL Normal 70-100 [facility] Comment on above: Performed By: #### 5 7306, 09002 #### [facility] [address] [place] [address], [place] Potassium [Moles/Vol] 4.0 mmol/L Normal 3.5-5.1 [facility] Comment on above: Performed By: #### 5 7307, 03626 #### [facility] [address] [facility] [place] [address], [facility] Sodium [Moles/Vol] 137 mmol/L Normal 136-145 [facility] Comment on above: Performed By: #### 5 73, 79233 #### [facility] [address] [facility] [place] [address], [facility] Urea nitrogen [Mass/Vol] 12 mg/dL Normal 7-25 [facility] Comment on above: Performed By: #### 5 73, 14095 #### [facility] [address] [facility] [place] [address], [facility] CBC W/DIFFon 01-23-2019 ABS BASOPHILS 0.1 10*3/uL Normal 0.0-0.2 The [facility] Comment on above: Performed By: #### 5 73, 98353 #### [facility] [address] [facility]. [address] ABS IMM GRANS 0.0 10*3/uL Normal 0.0-0.2 [facility] Comment on above: Performed By: #### 5 73, 12972 #### [facility] [address] [facility] [place] [address], [facility] ABS NEUTROPHILS 5.3 10*3/uL Normal 1.6-7.6 [facility] Comment on above: Performed By: #### 5 7307, 41614 #### [facility] [address] [facility] [place] [address], [facility] Basophils/100 WBC (Bld) 0.9 % Normal 0.0-1.0 [facility] Comment on above: Performed By: #### 5 7307, 69605 #### [facility] [address] [facility] [place] [address], [facility] Eosinophils (Bld) [#/Vol] 0.2 10*3/uL Normal 0.0-0.5 [facility] Comment on above: Performed By: #### 5 7306, 41917 #### [facility] [address] [place] [address], [facility] Eosinophils/100 WBC (Bld) 2.3 % Normal 0.0-6.0 [facility] Comment on above: Performed By: #### 5 7306, 87037 #### [facility] [address] [place] [address], [facility] Erythrocyte distribution width (RBC) [Ratio] 13.8 % Normal 11.5-15.0 [facility] Comment on above: Performed By: #### 5 7306, 90469 #### [facility] [address] [place] [address], [facility] Hematocrit (Bld) [Volume fraction] 49.6 % Normal 39.0-50.0 [facility] Comment on above: Performed By: #### 5 7306, 01807 #### [facility] [address] [place] [address], [facility] Hemoglobin (Bld) [Mass/Vol] 16.4 g/dL Normal 13.0-17.0 [facility] Comment on above: Performed By: #### 5 7306, 30756 #### [facility] [address] [place] [address], [facility] IMMATURE GRANS 0.5 % Normal 0.0-1.0 The [facility] Comment on above: Performed By: #### 5 7306, 24192 #### [facility] [address] [place] [address], [facility] Lymphocytes (Bld) [#/Vol] 1.2 10*3/uL Normal 1.2-4.0 [facility] Comment on above: Performed By: #### 5 7306, 01076 #### [facility] [address] [place] [id number], [facility] Lymphocytes/100 WBC (Bld) 16.6 % Low 20.0-45.0 [facility] Comment on above: Performed By: #### 7306, 07575 #### [facility] [address] [place] [address], [facility] MCH (RBC) [Entitic mass] 27.8 pg Normal 27.0-33.0 [facility] Comment on above: Performed By: #### 5 7306, 97026 #### [facility] [address] MCHC (RBC) [Mass/Vol] 33.1 g/dL Normal 32.0-35.0 [facility] Comment on above: Performed By: #### 5 7306, 31032 #### [facility] [address] [place] [address], [facility] MCV (RBC) [Entitic vol] 84.2 fL Normal 82.0-98.0 [facility] Comment on above: Performed By: #### 5 7306, 86682 #### [facility] [address] [facility] [place] [address], [facility] Monocytes (Bld) [#/Vol] 0.7 10*3/uL Normal 0.1-1.0 [facility] Comment on above: Performed By: #### 5 7306, 18370 #### [facility] [address] [place] [address], [facility] MONOS 9.4 % Normal 5.0-12.0 [facility] Comment on above: Performed By: #### 5 7306, 51996 #### [facility] [address] [place] [address], [facility] Neutrophils/100 WBC (Bld) 70.3 % Normal 40.0-72.0 [facility] Comment on above: Performed By: #### 7306, 71892 #### [facility] [address] [place] [address], [facility] Nucleated RBC/100 WBC (Bld) [Ratio] 0 % Normal 0-0 [facility] Comment on above: Performed By: #### 5 7307, 83855 #### [facility] [address] [place] [address], [facility] PLAT CNT 235 10*3/uL Normal 150-[address] [facility] Comment on above: Performed By: #### 5 7307, 14887 #### [facility] [address] RBC (Bld) [#/Vol] 5.89 10*6/uL High 4.20-5.70 [facility] Comment on above: Performed By: #### 5 7307, 39153 #### [facility] [address] WBC (Bld) [#/Vol] 7.48 10*3/uL Normal 4.00-10.60 [facility] Comment on above: Performed By: #### 5 7307, 08589 #### [facility] [address] PROTHROMBIN TIMEon 9 INR Coag (PPP) [Relative time] 1.12 {INR} Normal 0.91-1.16 [facility] Comment on above: Result Comment: ACCC P [...] CHEST 1995;108:231S-246S. Performed By: #### 5 7307, 90067 #### [facility] [address] PT Coag (PPP) [Time] 14.4 s Normal 12.3-14.8 [facility] Comment on above: Result Comment: ALL RESULTS MUST BE INTERPRETED WITH RESPECT TO BLOOD DRAWING ARTIFACT OR DILUTION ERROR OF ANTICOAGULANT AT THE TIME OF SAMPLING. Performed By: #### 5 7307, 28502 #### [facility] [address] TYPE AND SCREENon 01-23-2019 ABO INTERPRETATION A Normal [facility] Comment on above: Performed By: #### 5 7307, 46228 #### [facility] [address] [place] [address], [facility] RH INTERPRETATION Positive Normal [facility] Comment on above: Performed By: #### 5 7307, 50162 #### [facility] [address] 3D CERVICAL SPINE WO CONT RASTon 01-12-2019 CT 3D CERVICAL SPINE WO CONTRAST [facility] Department of Radiology [address] [place] [phone] Patient Name: MATTY GARCES : 1970 Sex: M Age: Race: White Pt. Location: Patient Status: D Ordered Date: 01/10/2019 2:15:00 PM Completed Date: 01/12/2019 10:32 AM Requesting Provider: RADHA VIEIRA Attending Provider: RADHA VIEIRA Report Copy To: VENUS MENDEZ Signs & Symptoms: M48.02 Spinal stenosis, cervical region I10 History: Ursula para auth # [id number] 01/10/19-02/09/19 [id number] *er Comments: Exam: CT 3D CERVICAL SPINE [...] incomplete Electronically signed by:Ten Garland. Transcribed by: [email or web address], User Resident: Electronically Signed by: TEN GARLAND @ 01/13/2019 09:18 AM Braggadocio [facility] CERVICAL SPINE 2 OR 3 [facility] 01-05-2019 CERVICAL SPINE 2 OR 3 [facility] Department of Radiology [address] [place] [phone] Patient Name: MATTY GARCES : 1970 Sex: M Age: Race: White Pt. Location: Patient Status: O Ordered Date: 01/05/2019 9:00:00 AM Completed Date: 01/05/2019 09:06 AM Requesting Provider: RADHA VIEIRA Attending Provider: RADHA VIEIRA Report Copy To: Signs & Symptoms: M48.02 Spinal stenosis, cervical region I10 History: [place] Comments: , , , Ordering Provider - RADHA VIEIRA MD , Exam: CERVICAL SPINE 2 OR 3 [facility] CERVICAL SPINE 2 OR 3 S [...] findings. Electronically signed by:Ten Garland. Transcribed by: [email or web address], User Resident: KYLEIGH DELA CRUZ Electronically Signed by: TEN GARLAND @ 01/05/2019 12:37 PM I personally read this/these film(s) with this resident Normal The [facility] Comment on above: Order Comment: , , = ========= , Ordering Provider - RADHA VIEIRA MD , CERVICAL SPINE 2 OR 3 [facility] 08-30-2018 CERVICAL SPINE 2 OR 3 [facility] Department of Radiology [address] [place] [phone] Patient Name: MATTY GARCES : 1970 Sex: M Age: Race: White Pt. Location: Patient Status: O Ordered Date: 08/30/2018 9:35:00 AM Completed Date: 08/30/2018 09:43 AM Requesting Provider: RADHA VIEIRA Attending Provider: RADHA VIEIRA Report Copy To: VENUS MENDEZ Signs & Symptoms: M50.90 Cervical disc disorder, unsp, unspecified cervical region I10 History: [place] Comments: , POST OP XRAY AP/LAT ONLY [...] findings. Electronically signed by:Jasmyn King. Transcribed by: [email or web address], User Resident: RYAN HEAD Electronically Signed by: JASMYN KING @ 08/30/2018 05:45 PM I personally read this/these film(s) with this resident Normal The [facility] Comment on above: Order Comment: , POS T OP XRAY AP/LAT ONLY , POST OP XRAY AP/LAT ONLY , , , Ordering Provider - RADHA VIEIRA MD , Operative Reporton 8 Operative Report MR#: [id number] I [facility] Pt. Name: Matty Garces Room #: [id number] Discharge Date: Birthdate: 1970 OPERATIVE REPORT DATE OF SURGERY: 08/17/2018 SURGEON: Radha Vieira M.D. PREOPERATIVE DIAGNOSIS: Herniated cervical disk at C6-7. POSTOPERATIVE DIAGNOSIS: Herniated cervical disk at C6-7. 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 ANESTHESIA: Endotracheal, Braida. PROCEDURE: Anterior [...] Vieira M.D. Date Trans: 08/17/2018 11:25 P/sasha [id number] cc: Venus Mendez M.D. [address], [facility] [address] Braggadocio The [facility] CERVICAL SPINE 2 OR 3 [facility] 08-17-2018 CERVICAL SPINE 2 OR 3 VWS [facility] Department of Radiology [address] [place] [address] Patient Name: MATTY GARCES : 1970 Sex: M Age: Race: White Pt. Location: Patient Status: I Ordered Date: 08/17/2018 8:30:00 AM Completed Date: 08/17/2018 11:49 AM Requesting Provider: RADHA VIEIRA Attending Provider: RADHA VIEIRA Report Copy To: Signs & Symptoms: C6-7 ACDF with History: C6-7 ACDF with Comments: C6-7 ACDF with Exam: CERVICAL SPINE 2 OR 3 [facility] CERVICAL SPINE 2 OR 3 S [...] findings. Electronically signed by:Bernice Hoyt. Transcribed by: [email or web address], User Resident: EMILE TINAJERO Electronically Signed by: BERNICE HOYT @ 08/18/2018 01:06 PM I personally read this/these film(s) with this resident Normal The [facility] Comment on above: Order Comment: C6-7 ACDF with POC GLUCOSE LABon 08-17-2018 Glucose [Mass/Vol] 113 mg/dL High 70-100 [facility] Comment on above: Performed By: #### 8 5499 #### [facility] [address] [facility]. [address] RBC'S 2 UNITSon 08-17-2018 CROSSMATCH INTERP 1 COMP Normal [facility] Comment on above: Performed By: #### 8 6002 #### [facility] [address] [facility]. [address] CROSSMATCH INTERP 2 COMP Normal [facility] Comment on above: Performed By: #### 8 6002 #### [facility] [address] [facility]. [address] PRODUCT CODE 1 E0336 Normal The [facility] Comment on above: Performed By: #### 8 6002 #### [facility] [address] [facility] [place] [address], [facility] PRODUCT CODE 2 E0336 Normal [facility] Comment on above: Performed By: #### 8 6002 #### [facility] [address] [place] [address], [facility] PRODUCT STATUS 1 RE Normal The [facility] Comment on above: Result Comment: Resu lt changed by IF on 08/20/2018 07:48. The previous value was XM. Performed By: #### 8 6002 #### [facility] [address] [place] [address], [facility] PRODUCT STATUS 2 RE Normal [facility] Comment on above: Result Comment: Resu lt changed by IF on 08/20/2018 07:48. The previous value was XM. Performed By: #### 8 6002 #### [facility] [address] [place] [id number], [place] UNIT ABO 1 A Normal [facility] Comment on above: Performed By: #### 8 6002 #### [facility] [address] [place] [address], [place] UNIT ABO 2 A Normal [facility] Comment on above: Performed By: #### 8 6002 #### [facility] [address] [place] [address], [place] UNIT ID 1 [id number] Normal [facility] Comment on above: Performed By: #### 8 6002 #### [facility] [address] [place] [address], [facility] UNIT ID 2 [id number] Normal [facility] Comment on above: Performed By: #### 8 6002 #### [facility] [address] [place] [address], [place] UNIT RH 1 Positive Normal [facility] Comment on above: Performed By: #### 8 6002 #### [facility] [address] [place] [address], [place] UNIT RH 2 Positive Normal [facility] Comment on above: Performed By: #### 8 6002 #### [facility] [address] [place] [address], [facility] *MRSA/MSSA CULTUREon 08-02- 018 *MRSA/MSSA CULTURE Clinical Report: (D) Specimen: NASAL SWAB Collected: 08/02/2018 12:37 Status: Final Last Updated: 08/03/2018 14:26 ISO (Final) No Methicillin Resistant Staphylococcus aureus Isolated (MRSA) ISO (Final) Methicillin Sensitive Staphylococcus aureus (MSSA) Isolated Normal [facility] Comment on above: Performed By: #### 3 1302 #### [facility] [address] APTTon 08-02-2018 aPTT Coag (Bld) [Time] 31.2 s Normal 25.0-35.0 [facility] Comment on above: Result Comment: ALL RESULTS [...] THIS PURPOSE. Performed By: #### 5 7307, [address] #### [facility] [address] BASIC METABOLIC PANELon 07-15 Calcium [Mass/Vol] 9.4 mg/dL Normal 8.6-10.3 [facility] Comment on above: Performed By: #### 0 0071 #### [facility] [address] [place] [address], [facility] Chloride [Moles/Vol] 103 mmol/L Normal 98-107 [facility] Comment on above: Performed By: #### 0 0071 #### [facility] [address] [place] [address], [facility] CO2 [Moles/Vol] 29 mmol/L Normal 21-31 [facility] Comment on above: Performed By: #### 0 0071 #### [facility] [address] Creatinine [Mass/Vol] 1.06 mg/dL Normal 0.70-1.30 [facility] Comment on above: Performed By: #### 0 0071 #### [facility] [address] [place] [address], [facility] GFR/1.73 sq M predicted among blacks MDRD (S/P/Bld) [Vol rate/Area] mL/min/{1.73_m2} Normal >60 [facility] Comment on above: Performed By: #### 0 0071 #### [facility] [address] [place] [address], [facility] GFR/1.73 sq M predicted among non-blacks MDRD (S/P/Bld) [Vol rate/Area] mL/min/{1.73_m2} Normal >60 [facility] Comment on above: Performed By: #### 0 0071 #### [facility] [address] [place] [address], [facility] Glucose [Mass/Vol] 84 mg/dL Normal 70-100 [facility] Comment on above: Performed By: #### 0 0071 #### [facility] [address] [place] [address], [facility] Potassium [Moles/Vol] 4.0 mmol/L Normal 3.5-5.1 [facility] Comment on above: Performed By: #### 0 0071 #### [facility] [address] [place] [address], [place] Sodium [Moles/Vol] 140 mmol/L Normal 136-145 [facility] Comment on above: Performed By: #### 0 0071 #### [facility] [address] [place] [address], [facility] Urea nitrogen [Mass/Vol] 20 mg/dL Normal 7-25 [facility] Comment on above: Performed By: #### 0 0071 #### [facility] [address] [place] [address], [place] CBC W/DIFFon 08-02-2018 ABS BASOPHILS 0.1 10*3/uL Normal 0.0-0.2 The [facility] Comment on above: Performed By: #### 5 0103 #### [facility] [address] [place] [address], [facility] ABS IMM GRANS 0.1 10*3/uL Normal 0.0-0.2 [facility] Comment on above: Performed By: #### 5 0103 #### [facility] [address] [place] [address], [facility] ABS NEUTROPHILS 4.2 10*3/uL Normal 1.6-7.6 [facility] Comment on above: Performed By: #### 5 0103 #### [facility] [address] [facility] [place] [address], [facility] Basophils/100 WBC (Bld) 1.3 % High 0.0-1.0 [facility] Comment on above: Performed By: #### 5 0103 #### [facility] [address] [facility] [place] [address], [facility] Eosinophils (Bld) [#/Vol] 0.1 10*3/uL Normal 0.0-0.5 [facility] Comment on above: Performed By: #### 5 0103 #### [facility] [address] [place] [address], [facility] Eosinophils/100 WBC (Bld) 2.0 % Normal 0.0-6.0 [facility] Comment on above: Performed By: #### 5 0103 #### [facility] [address] Erythrocyte distribution width (RBC) [Ratio] 13.6 % Normal 11.5-15.0 [facility] Comment on above: Performed By: #### 5 0103 #### [facility] [address] [place] [address], [facility] Hematocrit (Bld) [Volume fraction] 44.3 % Normal 39.0-50.0 [facility] Comment on above: Performed By: #### 5 0103 #### [facility] [address] [place] [address], [facility] Hemoglobin (Bld) [Mass/Vol] 15.1 g/dL Normal 13.0-17.0 [facility] Comment on above: Performed By: #### 5 3 #### [facility] [address] [place] [address], [facility] IMMATURE GRANS 1.1 % High 0.0-1.0 The [facility] Comment on above: Performed By: #### 3 #### [facility] [address] [place] [address], [facility] Lymphocytes (Bld) [#/Vol] 1.2 10*3/uL Normal 1.2-4.0 [facility] Comment on above: Performed By: #### 5 3 #### [facility] [address] Lymphocytes/100 WBC (Bld) 18.3 % Low 20.0-45.0 [facility] Comment on above: Performed By: #### 5 3 #### [facility] [address] [place] [address], [facility] MCH (RBC) [Entitic mass] 29.0 pg Normal 27.0-33.0 [facility] Comment on above: Performed By: #### 5 3 #### [facility] [address] [place] [address], [facility] MCHC (RBC) [Mass/Vol] 34.1 g/dL Normal 32.0-35.0 [facility] Comment on above: Performed By: #### 5 3 #### [facility] [address] [place] [address], [facility] MCV (RBC) [Entitic vol] 85.0 fL Normal 82.0-98.0 [facility] Comment on above: Performed By: #### 0103 #### [facility] [address] [place] [address], [facility] Monocytes (Bld) [#/Vol] 0.7 10*3/uL Normal 0.1-1.0 [facility] Comment on above: Performed By: #### 102 #### [facility] [address] [facility] [place] [address], [facility] MONOS 11.1 % Normal 5.0-12.0 [facility] Comment on above: Performed By: #### 102 #### [facility] [address] [facility] [place] [address], [facility] Neutrophils/100 WBC (Bld) 66.2 % Normal 40.0-72.0 [facility] Comment on above: Performed By: #### 102 #### [facility] [address] [facility] [place] [address], [facility] Nucleated RBC/100 WBC (Bld) [Ratio] 0 % Normal 0-0 [facility] Comment on above: Performed By: #### 102 #### [facility] [address] [facility] [place] [address], [facility] PLAT CNT 179 10*3/uL Normal 150-[address] [facility] Comment on above: Performed By: #### 102 #### [facility] [address] [facility] [place] [address], [facility] RBC (Bld) [#/Vol] 5.21 10*6/uL Normal 4.20-5.70 [facility] Comment on above: Performed By: #### 102 #### [facility] [address] [facility] [place] [address], [facility] WBC (Bld) [#/Vol] 6.39 10*3/uL Normal 4.00-10.60 [facility] Comment on above: Performed By: #### 3 #### [address] CERVICAL SPINE 4 OR 5 VIEWSo n 08-02-2018 CERVICAL SPINE 4 OR 5 VIEWS [facility] Department of Radiology [address] [place] [id number] Patient Name: MATTY GARCES : 1970 [...] , , , Ordering Provider - RADHA VIIERA MD , Exam: CERVICAL SPINE 4 OR [...] findings. Electronically signed by:Jasmyn King. Transcribed by: [email or web address], User Resident: EMILE TINAJERO Electronically Signed by: JASMYN KING @ 08/03/2018 11:58 AM I personally read this/these film(s) with this resident Normal The [facility] Comment on above: Order Comment: , PRE OP XRAY AP/LAT \EANDE\ FLEX/EX , PREOP XRAY AP/LAT \EANDE\ FLEX/EX , , , Ordering Provider - RADHA VIEIRA MD , PROTHROMBIN TIMEon 8 INR Coag (PPP) [Relative time] 1.15 {INR} Normal 0.91-1.16 [facility] Comment on above: Result Comment: ACCC P [...] CHEST 1995;108:231S-246S. Performed By: #### 5 7307, 72918 #### [facility] [address] [place] [address], [facility] PT Coag (PPP) [Time] 14.7 s Normal 12.3-14.8 [facility] Comment on above: Result Comment: ALL RESULTS MUST BE INTERPRETED WITH RESPECT TO BLOOD DRAWING ARTIFACT OR DILUTION ERROR OF ANTICOAGULANT AT THE TIME OF SAMPLING. Performed By: #### 5 7307, [id number] #### [facility] [address] [place] [address], [facility] TYPE AND SCREENon 08-02-2018 ABO INTERPRETATION A Normal [facility] Comment on above: Order Comment: 2 uni ts 2 units 2 units 2 units 2 units Performed By: #### 6 2586 #### [facility] [address] [place] [address], [facility] RH INTERPRETATION Positive Normal [facility] Comment on above: Order Comment: 2 uni ts 2 units 2 units 2 units 2 units Performed By: #### 6 2586 #### [facility] [address] [place] [address], [facility] URINALYSIS REFLEXon 08-02-20 18 Appearance (U) CLEAR Normal CLEAR The [facility] Comment on above: Performed By: #### 3 0965 #### [facility] [address] [place] [address], [facility] Bilirubin [Mass/Vol] Negative Normal NEGATIVE [facility] Comment on above: Performed By: #### 3 0965 #### [facility] [address] [place] [address], [facility] BLOOD Negative Normal NEGATIVE [facility] Comment on above: Performed By: #### 3 0965 #### [facility] [address] [place] [address], [facility] Color (U) YELLOW Normal YELLOW [facility] Comment on above: Performed By: #### 3 0965 #### [facility] [address] [place] [address], [place] Glucose [Mass/Vol] 150 mg/dL Abnormal NEGATIVE [facility] Comment on above: Performed By: #### 3 0965 #### [facility] [address] [place] [address], [facility] KETONE Negative Normal NEGATIVE [facility] Comment on above: Performed By: #### 3 0965 #### [facility] [address] [place] [address], [place] Negative Normal NEGATIVE [facility] Comment on above: Performed By: #### 3 0965 #### [facility] [address] [facility] [place] [address], [facility] MICRO NOT DONE negative chemical reactions unless requested in original order Normal [facility] Comment on above: Performed By: #### 3 0965 #### [facility] [address] [facility] [place] [address], [place] Nitrite Ql (U) Negative Normal NEGATIVE The [facility] Comment on above: Performed By: #### 3 0965 #### [facility] [address] [facility] [place] [address], [facility] pH (Bld) 5.0 Normal 5.0-8.0 [facility] Comment on above: Performed By: #### 3 0965 #### [facility] [address] [facility] [place] [address], [facility] Protein (U) [Mass/Vol] Negative Normal NEGATIVE [facility] Comment on above: Performed By: #### 3 0965 #### [facility] [address] [place] [address], [facility] SPEC GRAV 1.024 High 1.015-1.[address] [facility] Comment on above: Performed By: #### 3 0965 #### [facility] [address] [place] [address], [facility] Vital Signs Date Time Vital Sign Value Performing Clinician Molly bunn 02-25-2022 10:30-0400 Blood Pressure Location Viola Lue [facility] 02-25-2022 10:30-0400 Diastolic blood pressure 107 mm[Hg] Viola Lue [facility] 02-25-2022 10:30-0400 Heart rate 74 /min Viola Lue [facility] 02-25-2022 10:30-0400 Respiratory rate 16 /min Viola Lue [facility] [employer] 02-25-2022 10:30-0400 Systolic blood pressure 157 mm[Hg] Viola Lue [facility] Encounters Encounter Date Encounter Type Care Provider Facility Start: 11-29-2023 End: 11-30-2023 ambulatory Diallo Beauchamp MD [facility] Start: 10-18-2023 End: 10-19-2023 ambulatory Diallo Beauchamp MD [facility] Start: 09-27-2023 End: 09-27-2023 ambulatory RUBÉN GEIGER Not Available Start: 08-30-2023 End: 08-31-2023 ambulatory Diallo Beauchamp MD Facility:[facility] Start: 07-12-2023 End: 07-13-2023 ambulatory Diallo Beauchamp MD Facility:[facility] Start: 06-14-2023 End: 06-15-2023 ambulatory Diallo Beauchamp MD Facility:[facility] Start: 03-11-2023 End: 03-11-2023 ambulatory Rubén Geiger Facility:[facility] Start: 12-06-2022 End: 12-06-[address] VENUS MENDEZ . Facility:[facility] Start: 12-05-2022 Encounter for genera l adult medical examination without abnormal findings DR VENUS MENDEZ . [facility] Start: 12-01-2022 End: 12-02-[address] [...] encounter procedure Viola Grullon [facility] Start: 01-04-2022 End: 01-05-[address] VENUS MENDEZ . Facility: Start: 01-30-2019 End: 02-01-2019 Evaluation and management of inpatient PROVIDER UNKNOWN Facility:[facility] Start: 08-17-2018 End: 08-18-2018 Patient encounter procedure PROVIDER UNKNOWN Facility:[facility] Procedures Date Procedure Procedure Detail Performing Clinician Start: 12-01-[address] FRANKLIN MENDEZ . Comment on above: Performed By: #### P [facility] #### [facility] [address] [place] [address] Dr. Shabnam Rae Start: 01-30-2019 FUSION CERV JT W INT BD FUS DEV, ANT APPR A COL, OPEN AZEDINE [facility] Start: 01-30-2019 REMOVAL OF INT FIX F ROM CERVCAL VERTEBRA, OPEN APPROACH AZ[facility]INE [facility] Start: 01-23-2019 Antibody screen PROVIDE R UNKNOWN Comment on above: Performed By: #### 5 7307, 94461 #### [facility] [address] Start: 08-17-2018 ANESTH SPINE CORD SURGERY [...] units Performed By: #### 6 2586 #### [facility] [address] Colonoscopy Viola Grullon Hemorrhoids (disorder) Viola Lue Hernia of abdominal cavity (disorder) Viola Glookoe Tonsillectomy Viola Glookolucy Payers Date Payer Category Payer Self-pay 2022 Medicaid [id number] 2022 Unknown 1970 Unknown [id number] 2.16.8 [id number] 1970 Unknown [id number] 2.16.8 [id number] 1970 Unknown [id number] 2.16.84 0.1.926489.3.579.2.593 1970 Unknown [id number] 2.16.84 0.1.106878.3.579.2.593 1970 Unknown [id number] 2.16.84 0.1.885814.3.579.2.593 1970 Unknown [id number] 2.16.84 0.1.423739.3.579.2.593 1970 Unknown [id number] 2.16.84 0.1.914326.3.579.2.593 1970 Unknown [id number] 2.16.84 0.1.304966.3.579.2.593 1970 Unknown [id number] 2.16.84 0.1.869258.3.579.2.1259 1970 Unknown [id number] 2.16. 840.1.698904.3.579.2.196 1970 Unknown [id number] 2.16. 840.1.994075.3.579.2.196 1970 Unknown [id number] 2.16. 840.1.120084.3.579.2.196 1970 Unknown [id number] 2.16. 840.1.012525.3.579.2.196 1970 Unknown [id number] 2.16. 840.1.801986.3.579.2.196 1959 Unknown [id number] Unknown [id number] Unknown [id number] 2.16.8 40.1.284763.3.579.2.531 Social History Date Type Detail Facility Tobacco smoking status No Smoking Status Entered [facility] Sex Assigned At Male [facility] Functional Status Date Assessment Result Facility 02-25-2022 Functional Status N/A [facility] Progress note 06-09-2023 Note Date & Type Note Facility 06-09-2023 Note [facility] Continue GDMT- Diuretic therapy Monitor daily weights, I&O, fluid restriction 1.5-2L/day, renal function and electrolytes- [facility] Clinical Note 03-26-2022 Note Date & Type [...] authenticated by: ALVINA CAICEDO Date: 2022-03-26 10:47 [facility] Discharge instructions 02-25-2022 Note Date & Type [...] Watch the hydrocele for any changes. Take fyyr-cgn-rklckic and prescription medicines only as told by [...] 02/17/2011 Document Revised: 09/10/2018 Document Reviewed: 09/10/2018 [employer] Patient Education 2019 [employer]. Follow Up Care 01/28/2022 10:36:35 With:Mitchel DELGADO, [place] Gregorio, URO Address: When: Unknown [facility] Evaluation + Plan note Note Date & Type Note Facility Evaluation + Plan note No data available for this section [facility] Progress note Note Date & Type Note Facility Progress note No data available for this section [facility] Summary Purpose Family History No Family History [...] Records Found Hospital Course Note MR#: [id number] [facility] Pt. Name: Matty Garces Admitted: 01/30/2019 [...] section and content) DATE CREATED AUTHOR 07/19/2019 [facility] DATE CREATED AUTHOR AUTHOR'S ORGANIZ ATION 02/27/2022 [place] [facility] DATE CREATED AUTHOR AUTHOR'S ORGANIZ ATION 12/08/2022 [facility] pital DATE CREATED AUTHOR AUTHOR'S ORGANIZ ATION 03/17/2023 [facility] DATE CREATED AUTHOR AUTHOR'S ORGANIZ ATION 06/17/2023 [facility] DATE CREATED AUTHOR AUTHOR'S ORGANIZ ATION 09/27/2023 [facility] EPIC DATE CREATED AUTHOR AUTHOR'S ORGANIZ ATION 12/03/2023 [facility] Care Team (unrecognized sect ion and content) Personnel Name: Andrea DELGADO Venus Address: [address] [place] [address] FOR RECORDS PERTAINING TO PATIENTS WHO ARE [...] BE BASED ON THE PRIMARY CLINICAL RECORDS. [employer] [facility]. provides no warranty or guarantee of the accuracy or completeness of information in this document.
== END 2023-12-24 11:43 | disposition home or self-care (01) ==
LOC: WC 11:42
PROVIDERS: PCP Family Medicine; Visit Provider Podiatrist Foot & Ankle Surgery
DX: L97.512 Non-pressure chronic ulcer of other part of right foot with fat layer exposed (principal)
CPT/HCPCS: 11042

== ENCOUNTER 2023-12-28 08:58 | Outpatient (OUT) | payer MEDICAID, SELFPAY ==
--- NOTE | 2023-12-28 09:12 | ECG_ITS ---
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
--- OUTSIDE RECORDS SUMMARY | 2023-12-28 09:21 | XMS_ITS | CCD ---
Author Organization [facility] Care Team Providers Care Kettle Room Helper Name Role Phone UNKNOWN, PROVIDER Admitting Unavailable UNKNOWN, PROVIDER Attending Unavailable VENUS MENDEZ Referring Unavailable VENUS MENDEZ Primary Care Unavailable [place] Procedure Practitioner Unavailab le UNKNOWN, PROVIDER Surgeon Unavailable [place] Procedure Practitioner Unavailab le SANDRA BILL Surgeon Unavailable UNKNOWN, PROVIDER Admitting Unavailable UNKNOWN, PROVIDER Attending Unavailable VENUS MENDEZ Referring Unavailable VENUS MENDEZ Primary Care Unavailable [place] Procedure Practitioner Unavailab le UNKNOWN, PROVIDER Surgeon [...] source) Aspartame Drug Allergy 08-17-20 18 [facility] Repository (1 source) avoid; Translations: [Unknown] Propensity to adverse reactions (disorder) 08-17-20 [facility] Repository (1 source) vitamin B12; Translations: [cyanocobalamin] Drug Allergy Unknown (qualifier value) [facility] (1 source) Acetaminophen / HYDROcodone Drug Allergy [facility] (1 source) Corticosteroids Drug allergy (disorder) [facility] (1 source) fentaNYL Drug Allergy [facility] (1 source) Misc-Food; Translations: [Misc-Food] Food allergy (disorder) [facility] (1 source) Corticosteroids Drug allergy (disorder) 05-14-20 [facility] Repository Medications Current Medications Medication Drug Class(es) [...] Onset: 3 Chronic Other aftercare (1 source) 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; 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] Onset: 3 Episodic Other aftercare (1 source) Other [facility] (current) drug therapy; Translations: [OTH SENIOR CARE CURRENT DRUG THERAPY] Onset: 3 Episodic Other [...] spine 5V*on 02-12 XR cervical spine 5V* [facility] Main [place] [id number] XRay Report Signed Patient: Matty Garces MR#: [id number] 97 : 1970 Acct:[id number] Age/Sex: 52 / M ADM Date: 03/11/23 Loc: ICXD Room: Type: [facility] Attending Dr: Rubén Geiger MD Copies to: [...] Crow Contreras M.D.03/11/2023 3:48 PM Dictation Location: [place] [address] Transcribed By: [facility] 03/11/23 1548 Dictated By: Crow Contreras DO 03/11/23 1544 Signed By: 03/11/23 15[address] [facility] [address] CSPINE WO CONon CT CSPINE [...] ANGEL SAID Date: 2022-12-06 06:37 [address] [facility] [address] FACIAL BONES WO CONon CT FACIAL [...] ANGEL SAID Date: 2022-12-06 06:[address] [facility] [address] HEAD WO CONon 12-06-2022 CT HEAD [...] ANGEL SAID Date: 2022-12-06 06:39 Normal [facility] XR ELBOW RT MIN 3 VIEWSon XR ELBOW RT MIN 3 VIEWS Exam: Radiographs: XR ELBOW RT MIN 3 VIEWS Reason for exam: Elbow pain Comparison: None IMPRESSION: Right elbow degenerative changes. Olecranon spur. Remainder of the right elbow is unremarkable. Electronically authenticated by: MICHAEL CASANOVA Date: 2022-12-06 07:22 Normal [facility] XR FOREARM RT 2Von 03-26-202 3 XR FOREARM RT 2V Exam: Radiographs: XR FOREARM RT 2V Reason for exam: Forearm pain Comparison: None IMPRESSION: Mild degenerative changes in the right elbow and wrist. Right forearm is otherwise unremarkable. Electronically authenticated by: MICHAEL CASANOVA Date: 2022-12-06 08:07 Normal [facility] PSA, FREE AND TOTAL RATIOon 12-03-2022 % Free PSA 9.0 % Normal [facility] Comment on above: Result Comment: The table [...] men. Performed By: #### P SAFREE #### [facility] [address] [place] [address] [address] Shabnam Rae Prostate specific Ag [Mass/Vol] 5.9 ng/mL Critically high 0.0-4.0 [facility] Comment on above: Result Comment: Roch lucy ECLIA methodology. . According to the [place] [employer], Serum PSA should decrease and [...] disease. Performed By: #### P SAFREE #### [facility] [address] [place] [address] [address] Shabnam Rae PSA, Free 0.53 ng/mL Normal N/A [facility] Comment on above: Result Comment: Roch e ECLIA methodology. Performed By: #### P SAFREE #### [facility] [address] [place] [address] [address] Shabnam Rae INSULINon 12-02-2022 Insulin 20.2 uIU/mL Normal 2.6-24.9 [facility] Comment on above: Performed By: #### P SASC #### [facility] [address] [place] [address] Dr. Shabnam Rae TESTOSTERONE, TOTALon 2022 Testosterone [Mass/Vol] 256 ng/dL Critically low 264-916 [facility] Comment on above: Result Comment: Adul t male reference interval is based on a population of healthy nonobese males (BMI <30) between 19 and 39 years old. Dima et.al. JCEM 2017,102;9112-9258. PMID: [id number]. Performed By: #### P SASC #### [facility] [address] [place] [address] Dr. Shabnam Rae CBC AUTO DIFFon 12-01-2022 BASO # 0.1 103/ul Normal 0.0-0.1 [facility] Comment on above: Performed By: #### P SASC #### [facility] [address] [place] [address] Dr. Shabnam Rae Basophils/100 WBC (Bld) 1.0 % Normal 0.2-2.0 [facility] Comment on above: Performed By: #### P SASC #### [facility] [address] [place] [address] Dr. Shabnam Rae EO # 0.1 103/ul Normal 0.0-0.7 [facility] Comment on above: Performed By: #### P SASC #### [facility] [address] [place] [address] Dr. Shabnam Rae Eosinophils/100 WBC (Bld) 1.8 % Normal 0.9-7.0 [facility] Comment on above: Performed By: #### P SASC #### [facility] [address] [place] [address] Dr. Shabnam Rae Erythrocyte distribution width (RBC) [Ratio] 14.8 % Normal 11.0-15.0 [facility] Comment on above: Performed By: #### P SASC #### [facility] [address] [place] [address] [address] Shabnam Rae Hematocrit (Bld) [Volume fraction] 49.9 % Normal 42.0-54.0 [facility] Comment on above: Performed By: #### P SASC #### [facility] [address] [place] [address] [address] Shabnam Rae Hemoglobin (Bld) [Mass/Vol] 16.0 g/dL Normal 14.0-18.0 [facility] Comment on above: Performed By: #### P SASC #### [facility] [address] [place] [address] [address] Shabnam Rae IG # 0.04 10e3/ul Critically high 0.00-0.03 [facility] Comment on above: Performed By: #### P SASC #### [facility] [address] [place] [address] Dr. Shabnam Rae IG % 0.6 % Critically high 0.0-0.5 [facility] Comment on above: Performed By: #### P SASC #### [facility] [address] [place] [address] [address] Shabnam Rae LYMPH # 1.0 103/ul Critically low 1.2-3.8 [facility] Comment on above: Performed By: #### P SASC #### [facility] [address] [place] [address] [address] Shabnam Rae Lymphocytes/100 WBC (Bld) 16.2 % Critically low 20.5-60.0 [facility] Comment on above: Performed By: #### P SASC #### [facility] [address] [place] [address] [address] Shabnam Rae MANUAL DIFF REQ NO Normal [facility] Comment on above: Performed By: #### P SASC #### [facility] [address] [place] [address] [address] Shabnam Rae MCH (RBC) [Entitic mass] 27.7 pg Normal 25.9-34.0 [facility] Comment on above: Performed By: #### P SASC #### [facility] [address] [place] [address] [address] Shabnam Rae MCHC (RBC) [Mass/Vol] 32.1 g/dL Normal 29.9-35.2 [facility] Comment on above: Performed By: #### P SASC #### [facility] [address] [place] [address] [address] Shabnam Rae MCV (RBC) [Entitic vol] 86.3 fL Normal 80.0-94.0 [facility] Comment on above: Performed By: #### P SASC #### [facility] [address] [place] [address] [address] Shabnam Rae MONO # 0.5 103/ul Normal 0.3-0.8 [facility] Comment on above: Performed By: #### P SASC #### [facility] [address] [place] [address] Dr. Shabnam Rae Monocytes/100 WBC (Bld) 7.6 % Normal 1.7-12.0 [facility] Comment on above: Performed By: #### P SASC #### [facility] [address] [place] [address] [address] Shabnam Rae NEUT # 4.6 103/ul Normal 1.4-6.5 [facility] Comment on above: Performed By: #### P SASC #### [facility] [address] [place] [address] [address] Shabnam Rae Neutrophils/100 WBC (Bld) 72.8 % Normal 43.0-75.0 [facility] Comment on above: Performed By: #### P SASC #### [facility] [address] [place] [address] [address] Shabnam Rae Platelet mean volume (Bld) [Entitic vol] 9.8 fL Normal 9.5-13.5 [facility] Comment on above: Performed By: #### P SASC #### [facility] [address] [place] [address] [address] Shabnam Rae PLT 203 103/ul Normal 150-450 [facility] Comment on above: Performed By: #### P SASC #### [facility] [address] [place] [address] [address] Shabnam Rae RBC 5.78 106/ul Normal 4.70-6.10 [facility] Comment on above: Performed By: #### P SASC #### [facility] [address] [place] [address] Dr. Shabnam Rae WBC 6.3 103/ul Normal 4.0-11.0 [facility] Comment on above: Performed By: #### P SASC #### [facility] [address] [place] [address] Dr. Shabnam Rae FREE THYROXINE INDEX T7on FTI 2.05 Normal 1.30-4.50 [facility] Comment on above: Performed By: #### T SH, CMP, LIPID, T7, URIC #### [facility] [address] [place] [address] Dr. Shabnam Rae T3U 33.0 % Normal 33.0-40.0 [facility] Comment on above: Performed By: #### T SH, CMP, LIPID, T7, URIC #### [facility] [address] [place] [address] Dr. Shabnam Rae T4 [Mass/Vol] 6.20 ug/dL Normal 4.50-12.10 [facility] Comment on above: Performed By: #### T SH, CMP, LIPID, T7, URIC #### [facility] [address] [place] [address] Dr. Shabnam Rae GLYCOHEMOGLOBIN A1Con 2022 ADA RECOMMENDATION SEE BELOW Normal [facility] Comment on above: Result Comment: ADA RECOMMENDED LIMIT 4.0 - 6.0 ADA THERAPEUTIC TARGET < 7.0 ACTION SUGGESTED > 7.0 Performed By: #### P SASC #### [facility] [address] [place] [address] Dr. Shabnam Rae Glucose [Mass/Vol] 114 mg/dL Normal [facility] Comment on above: Performed By: #### P SASC #### [facility] [address] [place] [address] Dr. Shabnam Rae HbA1c (Bld) [Mass fraction] 5.6 % Normal 4.5-6.2 [facility] Comment on above: Performed By: #### P SASC #### [facility] [address] [place] [address] Dr. Shabnam Rae LIPID PROFILEon 12-01-2022 CHOL-HDL RATIO NORM SEE BELOW Normal [facility] Comment on above: Result Comment: 3.3 - 4.4 LOW RISK 4.4 - 7.1 AVERAGE RISK 7.1 - 11.0 MODERATE RISK >11.0 HIGH RISK Performed By: #### T SH, CMP, LIPID, T7, URIC #### [facility] [address] [place] [address] Dr. Shabnam Rae Cholesterol [Mass/Vol] 176 mg/dL Normal <=200 [facility] Comment on above: Performed By: #### T SH, CMP, LIPID, T7, URIC #### [facility] [address] [place] [address] Dr. Shabnam Rae Cholesterol in HDL [Mass/Vol] 48 mg/dL Normal 40-60 [facility] Comment on above: Performed By: #### T SH, CMP, LIPID, T7, URIC #### [facility] [address] [place] [address] Dr. Shabnam Rae Cholesterol in LDL [Mass/Vol] 108.2 mg/dL Normal [facility] Comment on above: Performed By: #### T SH, CMP, LIPID, T7, URIC #### [facility] [address] [place] [address] Dr. Shabnam Rae Cholesterol.total/Ch olesterol in HDL [Mass ratio] 3.7 {ratio} Normal [facility] Comment on above: Performed By: #### T SH, CMP, LIPID, T7, URIC #### [facility] [address] [place] [address] Dr. Shabnam Rae HDL NORMAL > or = 60 mg/dl - LOW CARDIOVASCULAR RISK <40 mg/dl - HIGH CARDIOVASCULAR RISK Normal [facility] Comment on above: Performed By: #### T SH, CMP, LIPID, T7, URIC #### [facility] [address] [place], [place] [id number] Dr. Shabnam Rae LDL CALC NORMAL SEE BELOW Normal [facility] Comment on above: Result Comment: <100 mg/dl OPTIMAL 100 - 129 mg/dl NEAR OR ABOVE OPTIMAL 130 - 159 mg/dl BORDERLINE HIGH 160 - 189 mg/dl HIGH >190 mg/dl VERY HIGH Performed By: #### T SH, CMP, LIPID, T7, URIC #### [facility] [address] [address] [address] Shabnam Rae Triglyceride [Mass/Vol] 99 mg/dL Normal <=150 [facility] Comment on above: Performed By: #### T SH, CMP, LIPID, T7, URIC #### [facility] [address] [place] [address] [address] Shabnam Rae VLDL CALC 19.8 mg/dL Normal [facility] Comment on above: Performed By: #### T SH, CMP, LIPID, T7, URIC #### [facility] [address] [place] [address] Dr. Shabnam Rae PROF 14(COMP METB)on 023 Albumin [Mass/Vol] 4.1 g/dL Normal 3.4-5.0 [facility] Comment on above: Performed By: #### T SH, CMP, LIPID, T7, URIC #### [facility] [address] [place] [address] Dr. Shabnam Rae Albumin/Globulin [Mass ratio] 1.1 {ratio} Normal [facility] Comment on above: Performed By: #### T SH, CMP, LIPID, T7, URIC #### [facility] [address] [place] [address] Dr. Shabnam Rae ALP [Catalytic activity/Vol] 101 U/L Normal 46-116 [facility] Comment on above: Performed By: #### T SH, CMP, LIPID, T7, URIC #### [facility] [address] [place] [address] Dr. Shabnam Rae ALT [Catalytic activity/Vol] 26 U/L Normal 16-63 [facility] Comment on above: Performed By: #### T SH, CMP, LIPID, T7, URIC #### [facility] [address] [address] [address] Shabnam Rae Anion gap [Moles/Vol] 10.1 mmol/L Normal [facility] Comment on above: Performed By: #### T SH, CMP, LIPID, T7, URIC #### [facility] [address] [place] [address] Dr. Shabnam Rae AST [Catalytic activity/Vol] 19 U/L Normal 15-37 [facility] Comment on above: Performed By: #### T SH, CMP, LIPID, T7, URIC #### [facility] [address] [place] [address] [address] Shabnam Rae Bilirubin [Mass/Vol] 0.8 mg/dL Normal 0.2-1.0 [facility] Comment on above: Performed By: #### T SH, CMP, LIPID, T7, URIC #### [facility] [address] [place] [address] Dr. Shabnam Rae Calcium [Mass/Vol] 9.5 mg/dL Normal 8.5-10.1 [facility] Comment on above: Performed By: #### T SH, CMP, LIPID, T7, URIC #### [facility] [address] [address] [address] Shabnam Rae Chloride [Moles/Vol] 102 mmol/L Normal 98-107 [facility] Comment on above: Performed By: #### T SH, CMP, LIPID, T7, URIC #### [facility] [address] [address] [address] Shabnam Rae CO2 [Moles/Vol] 32.4 mmol/L Critically high 21.0-32.0 [facility] Comment on above: Performed By: #### T SH, CMP, LIPID, T7, URIC #### [facility] [address] [place] [address] Dr. Shabnam Rae Creatinine [Mass/Vol] 1.00 mg/dL Normal 0.70-1.30 [facility] Comment on above: Performed By: #### T SH, CMP, LIPID, T7, URIC #### [facility] [address] [place] [address] Dr. Shabnam Rae EGFR-AF ISRAELI >60 Normal >=60 [facility] Comment on above: Performed By: #### T SH, CMP, LIPID, T7, URIC #### [facility] [address] [address] [address] Shabnam Rae EGFR-NON AF ISRAELI >60 Normal >=60 [facility] Comment on above: Performed By: #### T SH, CMP, LIPID, T7, URIC #### [facility] [address] [address] [address] Shabnam Rae Globulin (S) [Mass/Vol] 3.8 g/dL Normal [facility] Comment on above: Performed By: #### T SH, CMP, LIPID, T7, URIC #### [facility] [address] [address] [address] Shabnam Rae Glucose [Mass/Vol] 94 mg/dL Normal 74-106 [facility] Comment on above: Performed By: #### T SH, CMP, LIPID, T7, URIC #### [facility] [address] [place] [address] Dr. Shabnam Rae Potassium [Moles/Vol] 3.5 mmol/L Normal 3.5-5.1 [facility] Comment on above: Performed By: #### T SH, CMP, LIPID, T7, URIC #### [facility] [address] [place] [address] Dr. Shabnam Rae Protein [Mass/Vol] 7.9 g/dL Normal 6.4-8.2 [facility] Comment on above: Performed By: #### T SH, CMP, LIPID, T7, URIC #### [facility] [address] [address] [address] Shabnam Rae Sodium [Moles/Vol] 141 mmol/L Normal 136-145 [facility] Comment on above: Performed By: #### T SH, CMP, LIPID, T7, URIC #### [facility] [address] [place] [address] Dr. Shabnam Rae Urea nitrogen [Mass/Vol] 15.0 mg/dL Normal 7.0-18.0 [facility] Comment on above: Performed By: #### T SH, CMP, LIPID, T7, URIC #### [facility] [id number] Shabnam Rae Urea nitrogen/Creatinine [Mass ratio] 15.0 mg/mg Normal [facility] Comment on above: Performed By: #### T SH, CMP, LIPID, T7, URIC #### [facility] [id number] Shabnam Rae TSHon 12-01-2022 TSH 1.504 uIU/mL Normal 0.358-3.740 [facility] Comment on above: Performed By: #### T SH, CMP, LIPID, T7, URIC #### [facility] [id number] Shabnam Rae URIC ACID SERUMon 12-01-2022 Urate [Mass/Vol] 6.9 mg/dL Normal 3.5-7.2 [facility] Comment on above: Performed By: #### T SH, CMP, LIPID, T7, URIC #### [facility] [id number] Shabnam Rae TESTOSTERONE, TOTALon 2021 Testosterone [Mass/Vol] 244 ng/dL Critically low 264-916 [facility] Comment on above: Result Comment: Adul t male reference interval is based on a population of healthy nonobese males (BMI <30) between 19 and 39 years old. Dima, et.al. JCEM 2017,102;7050-0271. PMID: [id number]. Performed By: #### P SAFREE #### [facility] [address] [address] [address] Shabnam Rae TESTOSTERONE, FREE,DIRECT, T OTALon 03-16-2022 Free Testosterone(Direct) 2.1 pg/mL Critically low 7.2-24.0 [facility] Comment on above: Result Comment: Perf ormed at: BN Performed By: #### C VDTBH #### [facility] [id number] Shabnam Rae Testosterone [Mass/Vol] 252 ng/dL Critically low 264-916 [facility] Comment on above: Result Comment: Adul t male reference interval is based on a population of healthy nonobese males (BMI <30) between 19 and 39 years old. adia Ch.al. JCEM 2017,102;8695-2735. PMID: 16859181. Performed at: CB Performed By: #### [facility] #### [facility] [address] [address] [address] Shabnam Rae Formson 02-26-2022 Forms [id number] 7#1.00CD:127 Normal [facility] Screenson 02-26-2022 Screens [id number] 7#1.00CD:127 Normal [facility] Screens [id number] #1.00CD:127 Normal [facility] Urology Office/Clinic Noteon 02-26-2022 Urology [...] I, Helen Leung, personally scribed for Dr. Grlulon on 02/25/2022 11:15:58. . Documentation recorded by the scribe, Helen Leung, accurately reflects the services(s) I performed and decisions made by me. Authenticated by Dr. Grullon on 02/26/2022 00:19:46. Problem List/Past Medical History Ongoing No qualifying data (more content not included)... Normal [facility] Comment on above: Result Comment: Elec tronically Signed By: Viola Grullon MD\.br\Date and Time Signed: 02/26/22 00:20 EDT\.br\Electronically Co-Signed By: Helen Leung\.br\Date and Time Co-Signed: 02/25/22 11:16 EDT Ambulatory Visit Summaryon 0 02-25-2022 Ambulatory Visit Summary MATTY GARCES :1970 Visit Date:02/25/2022 Ambulatory Visit Instructions Your Diagnosis Hydrocele Varicocele BPH without urinary obstruction Tests Performed Urnls Dip Stick Auto w/o Microscopy POC 09512 Your Care Team Attending Physician - Viola [...] Urnls Dip Stick Auto w/o Microscopy POC [id number] (02/25/2022) Bilirubin Urine Dipstick - Negative Blood Urine Dipstick - Negative Glucose Urine Dipstick - Negative Ketones Urine Dipstick - Negative Leukocytes Urine Dipstick - Negative Nitrite Urine Dipstick - Negative Protein Urine Dipstick - Negative Specific [place] Urine Dipstick - >=1.030 Urine Appearance Urine [...] the hydrocele for any changes. ? Take xlso-don-iqxruvg and prescription medicines only as told by [...] intended t (more content not included)... Normal [facility] Patient Educationon 02-26-20 Patient Education [...] the hydrocele for any changes. ? Take zxfi-tzg-uievxrb and prescription medicines only as told by [...] 02/17/2011 Document Revised: 09/10/2018 Document Reviewed: 09/10/2018 [email or web address] Patient Education ? 2019 [employer]. [facility] ED Note-Physicianon 05-24-20 22 ED Note-Physician [id number] 62#1.00CD:127 Normal [facility] RAD - Ultrasound Reporton RAD - Ultrasound Report [id number] #1.00CD:127 Normal [facility] RAD - CT Reporton 02-02-2022 RAD - CT Report [id number]#1.00CD:127 Normal [facility] RAD - CT Report [id number] 75#1.00CD:127 Normal [facility] CBC AUTO DIFFon 01-05-2022 BASO # 0.0 103/ul Normal 0.0-0.1 [facility] Comment on above: Performed By: #### P SAFREE #### [facility] [address] [address] [address] Shabnam Rae Basophils/100 WBC (Bld) 0.6 % Normal 0.2-2.0 [facility] Comment on above: Performed By: #### P SAFREE #### [facility] [address] [address] [address] Shabnam Rae EO # 0.1 103/ul Normal 0.0-0.7 [facility] Comment on above: Performed By: #### P SAFREE #### [facility] [address] [address] [address] Shabnam Rae Eosinophils/100 WBC (Bld) 2.1 % Normal 0.9-7.0 [facility] Comment on above: Performed By: #### P SAFREE #### [facility] [address] [address] [address] Shabnam Rae Erythrocyte distribution width (RBC) [Ratio] 13.1 % Normal 11.0-15.0 [facility] Comment on above: Performed By: #### P SAFREE #### [facility] [address] [place] [address] Dr. Shabnam Rae Hematocrit (Bld) [Volume fraction] 43.1 % Normal 42.0-54.0 [facility] Comment on above: Performed By: #### P SAFREE #### [facility] [address] [address] [address] Shabnam Rae Hemoglobin (Bld) [Mass/Vol] 13.7 g/dL Critically low 14.0-18.0 [facility] Comment on above: Performed By: #### P SAFREE #### [facility] [address] [address] [address] Shabnam Rae IG # 0.04 10e3/ul Critically high 0.00-0.03 [facility] Comment on above: Performed By: #### P SAFREE #### [facility] [address] [address] [address] Shabnam Rae IG % 0.6 % Critically high 0.0-0.5 [facility] Comment on above: Performed By: #### P SAFREE #### [facility] [address] [address] [address] Shabnam Rae LYMPH # 0.9 103/ul Critically low 1.2-3.8 [facility] Comment on above: Performed By: #### P SAFREE #### [facility] [address] [address] [address] Shabnam Rae Lymphocytes/100 WBC (Bld) 13.1 % Critically low 20.5-60.0 [facility] Comment on above: Performed By: #### P SAFREE #### [facility] [address] [address] [address] Shabnam Rae MANUAL DIFF REQ NO Normal [facility] Comment on above: Performed By: #### P SAFREE #### [facility] [address] [address] [address] Shabnam Rae MCH (RBC) [Entitic mass] 29.5 pg Normal 25.9-34.0 [facility] Comment on above: Performed By: #### P SAFREE #### [facility] [address] [address] [address] Shabnam Rae MCHC (RBC) [Mass/Vol] 31.8 g/dL Normal 29.9-35.2 [facility] Comment on above: Performed By: #### P SAFREE #### [facility] [address] [address] [address] Shabnam Rae MCV (RBC) [Entitic vol] 92.9 fL Normal 80.0-94.0 [facility] Comment on above: Performed By: #### P SAFREE #### [facility] [address] [address] [address] Shabnam Rae MONO # 0.4 103/ul Normal 0.3-0.8 [facility] Comment on above: Performed By: #### P SAFREE #### [facility] [address] [address] [address] Shabnam Rae Monocytes/100 WBC (Bld) 5.4 % Normal 1.7-12.0 [facility] Comment on above: Performed By: #### P SAFREE #### [facility] [address] [place] [address] Dr. Shabnam Rae NEUT # 5.2 103/ul Normal 1.4-6.5 [facility] Comment on above: Performed By: #### P SAFREE #### [facility] [address] [place] [address] Dr. Shabnam Rae Neutrophils/100 WBC (Bld) 78.2 % Critically high 43.0-75.0 [facility] Comment on above: Performed By: #### P SAFREE #### [facility] [address] [address] [address] Shabnam Rae Platelet mean volume (Bld) [Entitic vol] 10.9 fL Normal 9.5-13.5 [facility] Comment on above: Performed By: #### P SAFREE #### [facility] [address] [address] [address] Shabnam Rae PLT 153 103/ul Normal 150-450 [facility] Comment on above: Performed By: #### P SAFREE #### [facility] [address] [place] [address] Dr. Shabnam Rae RBC 4.64 106/ul Critically low 4.70-6.10 [facility] Comment on above: Performed By: #### P SAFREE #### [facility] [address] [address] [address] Shabnam Rae WBC 6.6 103/ul Normal 4.0-11.0 [facility] Comment on above: Performed By: #### P SAFREE #### [facility] [address] [place] [address] Dr. Shabnam Rae CRPon 01-05-2022 CRP 0.9 mg/dL Normal <=1.0 [facility] Comment on above: Performed By: #### P SAFREE #### [facility] [address] [place] [address] Dr. Shabnam Rae PROF 14(COMP METB)on 022 Albumin [Mass/Vol] 3.6 g/dL Normal 3.4-5.0 [facility] Comment on above: Performed By: #### P SAFREE #### [facility] [address] [place] [address] Dr. Shabnam Rae Albumin/Globulin [Mass ratio] 1.0 {ratio} Normal [facility] Comment on above: Performed By: #### P SAFREE #### [facility] [address] [place] [address] Dr. Shabnam Rae ALP [Catalytic activity/Vol] 114 U/L Normal 46-116 [facility] Comment on above: Performed By: #### P SAFREE #### [facility] [address] [address] [address] Shabnam Rae ALT [Catalytic activity/Vol] 26 U/L Normal 16-63 [facility] Comment on above: Performed By: #### P SAFREE #### [facility] [address] [address] [address] Shabnam Rae Anion gap [Moles/Vol] 9.3 mmol/L Normal [facility] Comment on above: Performed By: #### P SAFREE #### [facility] [address] [place] [address] Dr. Shabnam Rae AST [Catalytic activity/Vol] 19 U/L Normal 15-37 [facility] Comment on above: Performed By: #### P SAFREE #### [facility] [address] [address] [address] Shabnam Rae Bilirubin [Mass/Vol] 0.5 mg/dL Normal 0.2-1.0 [facility] Comment on above: Performed By: #### P SAFREE #### [facility] [address] [address] [address] Shabnam Rae Calcium [Mass/Vol] 8.9 mg/dL Normal 8.5-10.1 [facility] Comment on above: Performed By: #### P SAFREE #### [facility] [address] [address] [address] Shabnam Rae Chloride [Moles/Vol] 106 mmol/L Normal 98-107 [facility] Comment on above: Performed By: #### P SAFREE #### [facility] [address] [place] [address] Dr. Shabnam Rae CO2 [Moles/Vol] 30.7 mmol/L Normal 21.0-32.0 [facility] Comment on above: Performed By: #### P SAFREE #### [facility] [address] [address] [address] Shabnam Rae Creatinine [Mass/Vol] 1.15 mg/dL Normal 0.70-1.30 [facility] Comment on above: Performed By: #### P SAFREE #### [facility] [address] [address] [address] Shabnam Rae EGFR-AF ISRAELI >60 Normal >=60 [facility] Comment on above: Performed By: #### P SAFREE #### [facility] [address] [address] [address] Shabnam Rae EGFR-NON AF ISRAELI >60 Normal >=60 [facility] Comment on above: Performed By: #### P SAFREE #### [facility] [address] [place] [address] Dr. Shabnam Rae Globulin (S) [Mass/Vol] 3.6 g/dL Normal [facility] Comment on above: Performed By: #### P SAFREE #### [facility] [address] [address] [address] Shabnam Rae Glucose [Mass/Vol] 117 mg/dL Critically high 74-106 [facility] Comment on above: Performed By: #### P SAFREE #### [facility] [address] [address] [address] Shabnam Rae Potassium [Moles/Vol] 4.0 mmol/L Normal 3.5-5.1 [facility] Comment on above: Performed By: #### P SAFREE #### [facility] [address] [address] [address] Shabnam Rae Protein [Mass/Vol] 7.2 g/dL Normal 6.1-8.2 [facility] Comment on above: Performed By: #### P SAFREE #### [facility] [address] [place] [address] Dr. Shabnam Rae Sodium [Moles/Vol] 142 mmol/L Normal 136-145 [facility] Comment on above: Performed By: #### P SAFREE #### [facility] [address] [address] [address] Shabnam Rae Urea nitrogen [Mass/Vol] 15.0 mg/dL Normal 7.0-18.0 [facility] Comment on above: Performed By: #### P SAFREE #### [facility] [address] [place] [address] Dr. Shabnam Rae Urea nitrogen/Creatinine [Mass ratio] 13.0 mg/mg Normal [facility] Comment on above: Performed By: #### P SAFREE #### [facility] [address] [place] [address] Dr. Shabnam Rae US SCROTUMon 01-05-2022 US [...] ALVINA CAICEDO Date: 2022-01-05 08:48 Normal [facility] CBC AUTO DIFFon 01-04-2022 BASO # 0.1 103/ul Normal 0.0-0.1 [facility] Comment on above: Performed By: #### C BC #### [facility] [address] [place] [address] Dr. Shabnam Rae Basophils/100 WBC (Bld) 0.8 % Normal 0.2-2.0 [facility] Comment on above: Performed By: #### C BC #### [facility] [address] [place] [address] Dr. Shabnam Rae EO # 0.1 103/ul Normal 0.0-0.7 [facility] Comment on above: Performed By: #### C BC #### [facility] [address] [place] [address] Dr. Shabnam Rae Eosinophils/100 WBC (Bld) 1.5 % Normal 0.9-7.0 [facility] Comment on above: Performed By: #### C BC #### [facility] [address] [place] [address] Dr. Shabnam Rae Erythrocyte distribution width (RBC) [Ratio] 12.8 % Normal 11.0-15.0 [facility] Comment on above: Performed By: #### C BC #### [facility] [address] [address] [address] Shabnam Rae Hematocrit (Bld) [Volume fraction] 40.3 % Critically low 42.0-54.0 [facility] Comment on above: Performed By: #### C BC #### [facility] [address] [address] [address] Shabnam Rae Hemoglobin (Bld) [Mass/Vol] 13.4 g/dL Critically low 14.0-18.0 [facility] Comment on above: Performed By: #### C BC #### [facility] [address] [address] [address] Shabnam Rae IG # 0.03 10e3/ul Normal 0.00-0.03 [facility] Comment on above: Performed By: #### C BC #### [facility] [address] [place] [address] Dr. Shabnam Rae IG % 0.5 % Normal 0.0-0.5 [facility] Comment on above: Performed By: #### C BC #### [facility] [address] [place] [address] Dr. Shabnam Rae LYMPH # 1.0 103/ul Critically low 1.2-3.8 [facility] Comment on above: Performed By: #### C BC #### [facility] [address] [place] [address] Dr. Shbanam Rae Lymphocytes/100 WBC (Bld) 16.4 % Critically low 20.5-60.0 [facility] Comment on above: Performed By: #### C BC #### [facility] [address] [place] [address] Dr. Shabnam Rae MANUAL DIFF REQ NO Normal [facility] Comment on above: Performed By: #### C BC #### [facility] [address] [place] [address] Dr. Shabnam Rae MCH (RBC) [Entitic mass] 29.5 pg Normal 25.9-34.0 [facility] Comment on above: Performed By: #### C BC #### [facility] [address] [address] [address] Shabnam Rae MCHC (RBC) [Mass/Vol] 33.3 g/dL Normal 29.9-35.2 [facility] Comment on above: Performed By: #### C BC #### [facility] [address] [address] [address] Shabnam Rae MCV (RBC) [Entitic vol] 88.8 fL Normal 80.0-94.0 [facility] Comment on above: Performed By: #### C BC #### [facility] [address] [place] [address] Dr. Shabnam Rae MONO # 0.6 103/ul Normal 0.3-0.8 [facility] Comment on above: Performed By: #### C BC #### [facility] [address] [place] [address] Dr. Shbanam Rae Monocytes/100 WBC (Bld) 9.6 % Normal 1.7-12.0 [facility] Comment on above: Performed By: #### C BC #### [facility] [address] [place] [address] Dr. Shabnam Rae NEUT # 4.4 103/ul Normal 1.4-6.5 [facility] Comment on above: Performed By: #### C BC #### [facility] [address] [place] [address] Dr. Shabnam Rae Neutrophils/100 WBC (Bld) 71.2 % Normal 43.0-75.0 [facility] Comment on above: Performed By: #### C BC #### [facility] [address] [place] [address] Dr. Shabnam Rae Platelet mean volume (Bld) [Entitic vol] 10.8 fL Normal 9.5-13.5 [facility] Comment on above: Performed By: #### C BC #### [facility] [address] [place] [address] Dr. Shabnam Rae PLT 158 103/ul Normal 150-450 [facility] Comment on above: Performed By: #### C BC #### [facility] [address] [place], [place] [address] Dr. Shabnam Rae RBC 4.54 106/ul Critically low 4.70-6.10 [facility] Comment on above: Performed By: #### C BC #### [facility] [address] [place], [place] [address] Dr. Shabnam Rae WBC 6.2 103/ul Normal 4.0-11.0 [facility] Comment on above: Performed By: #### C BC #### [facility] [address] [place], [place] [address] ABD/PELV W CONon 01-05-[address] [...] MAYRA BERNAL Date: 2022-01-04 05:19 Normal [facility] CT PELVIS WO CONon 2 CT PELVIS [...] MANUEL HOUGH Date: 2022-01-04 08:54 Normal [facility] CULTURE URINEon 01-04-2022 CULTURE URINE Culture Observations: No growth Normal [facility] Comment on above: Performed By: #### P [facility] #### [facility] [address] [place] [address] Dr. Shabnam Rae Covid-19 PCR (CVDTB)on 12-13 SARS-CoV-2 (COVID-19) RNA ELIJAH+probe Ql (Unsp spec) Not detected Normal NOT DETECTED [facility] Comment on above: Result Comment: When diagnostic testing is negative, the possibility of a false negative should be considered in the context of a patient's recent exposures and the presence of clinical signs and symptoms consistent with SARS-CoV-2. This test is not yet approved or cleared by the [place] Food and Drug Administration (FDA). This test was developed by [employer], [place], [place]. The performance characteristics of this test were validated by [facility]. The results are not intended to be used as the sole means for clinical diagnosis or patient management decisions. [facility] is authorized under Clinical Laboratory Improvement Amendments [...] for this test is supported by the [employer] Manager of Health and Human Service's declaration that [...] used). Performed By: #### C VDTBH #### [facility] [address] [place] [address] Dr. Shabnam Rae ER URINE PROFILEon 2 Bilirubin Ql (U) Negative Normal NEGATIVE [facility] Comment on above: Performed By: #### P SASC #### [facility] [address] [place] [address] Dr. Shabnam Rae Clarity (U) CLEAR Normal CLEAR [facility] Comment on above: Performed By: #### P SASC #### [facility] [address] [place] [address] Dr. Shabnam Rae Color (U) YELLOW Normal YELLOW [facility] Comment on above: Performed By: #### P SASC #### [facility] [address] [address] [address] Shabnam HERNANDEZ A micrscopic examination will be performed if indicated. Normal [facility] Comment on above: Performed By: #### P SASC #### [facility] [address] [address] [address] Shabnam Rae Glucose Ql (U) Negative Normal NEGATIVE [facility] Comment on above: Performed By: #### P SASC #### [facility] [address] [address] [address] Shabnam Rae Hemoglobin Ql (U) Negative Normal NEGATIVE [facility] Comment on above: Performed By: #### P SASC #### [facility] [address] [place] [address] Dr. Shabnam Rae Ketones Ql (U) Negative Normal NEGATIVE [facility] Comment on above: Performed By: #### P SASC #### [facility] [address] [address] [address] Shabnam Rae LEUKOCYTES Negative Normal NEGATIVE [facility] Comment on above: Performed By: #### P SASC #### [facility] [address] [address] [address] Shabnam Rae Nitrite Ql (U) Negative Normal NEGATIVE [facility] Comment on above: Performed By: #### P SASC #### [facility] [address] [address] [address] Shabnam Rae pH (U) 6.5 [pH] Normal 5-9 [facility] Comment on above: Performed By: #### P SASC #### [facility] [address] [address] [address] Shabnam Rae SPEC GRAVITY 1.010 Normal 1.005-<=1.025 [facility] Comment on above: Performed By: #### P SASC #### [facility] [address] [address] [address] Shabnam Rae UA PROTEIN Negative Normal NEGATIVE/ TRACE [facility] Comment on above: Performed By: #### P SASC #### [facility] [address] [place] [address] Dr. Shabnam Rae UR MICRO IND NOT INDICATED Normal [facility] Comment on above: Performed By: #### P SASC #### [facility] [address] [place] [address] Dr. Shabnam Rae Urobilinogen Qn (U) 0.2 {Sarai'U}/dL Normal 0.2 - 1. 0 [facility] Comment on above: Performed By: #### P SASC #### [facility] [address] [place] [address] Dr. Shabnam Rae LACTATE/LACTIC ACIDon 2021 Lactate [Moles/Vol] 1.0 mmol/L Normal 0.4-2.0 [facility] Comment on above: Performed By: #### P SASC #### [facility] [address] [place] [address] Dr. Shabnam Rae PROF CHEM 8 (BAS METB)on Anion gap [Moles/Vol] 10.0 mmol/L Normal [facility] Comment on above: Performed By: #### B MP #### [facility] [address] [place] [address] Dr. Shabnam Rae Calcium [Mass/Vol] 8.5 mg/dL Normal 8.5-10.1 [facility] Comment on above: Performed By: #### B MP #### [facility] [address] [place] [address] Dr. Shabnam Rae Chloride [Moles/Vol] 103 mmol/L Normal 98-107 [facility] Comment on above: Performed By: #### B MP #### [facility] [address] [place] [address] Dr. Shabnam Rae CO2 [Moles/Vol] 29.2 mmol/L Normal 21.0-32.0 [facility] Comment on above: Performed By: #### B MP #### [facility] [address] [place] [address] Dr. Shabnam Rae Creatinine [Mass/Vol] 1.25 mg/dL Normal 0.70-1.30 [facility] Comment on above: Performed By: #### B MP #### [facility] [address] [address] [address] Shabnam Rae EGFR-AF ISRAELI >60 Normal >=60 [facility] Comment on above: Performed By: #### B MP #### [facility] [address] [address] [address] Shabnam Rae EGFR-NON AF ISRAELI >60 Normal >=60 [facility] Comment on above: Performed By: #### B MP #### [facility] [address] [address] [address] Shabnam Rae Glucose [Mass/Vol] 132 mg/dL Critically high 74-106 [facility] [place] [facility] Comment on above: Performed By: #### B MP #### [facility] [address] [address] [address] Shabnam Rae Potassium [Moles/Vol] 3.2 mmol/L Critically low 3.5-5.1 [facility] Comment on above: Performed By: #### B MP #### [facility] [address] [address] [address] Shabnam Rae Sodium [Moles/Vol] 139 mmol/L Normal 136-145 [facility] Comment on above: Performed By: #### B MP #### [facility] [address] [address] [address] Shabnam Rae Urea nitrogen [Mass/Vol] 19.0 mg/dL Critically high 7.0-18.0 [facility] Comment on above: Performed By: #### B MP #### [facility] [address] [address] [address] Shabnam Rae Urea nitrogen/Creatinine [Mass ratio] 15.2 mg/mg Normal [facility] Comment on above: Performed By: #### B MP #### [facility] [address] [address] [address] Shabnam Rae CERVICAL SPINE 2 OR 3 [facility] 07-06-2019 CERVICAL SPINE 2 OR 3 [facility] Department of Radiology [address] [place] [id number] Patient Name: MATTY GARCES : 1970 [...] findings. Electronically signed by:Bernice Hoyt. Transcribed by: [email or web address], User Resident: RADHA CHIN Electronically Signed by: BERNICE HOYT @ 07/06/2019 08:52 PM I personally read this/these film(s) with this resident Normal [facility] Comment on above: Order Comment: , STA T READ , STAT READ , , , Ordering Provider - RADHA VIEIRA MD , CERVICAL SPINE 2 OR 3 [facility] 04-06-2019 CERVICAL SPINE 2 OR 3 [facility] Department of Radiology [address] [place] [id number] Patient Name: MATTY GARCES : 1970 [...] FALLS Exam: CERVICAL SPINE 2 OR 3 [facility] CERVICAL SPINE 2 OR 3 S [...] study. Electronically signed by:Bernice Hoyt. Transcribed by: [email or web address], User Resident: Electronically Signed by: BERNICE HOYT @ 04/06/2019 04:40 PM Normal [facility] Comment on above: Order Comment: AP/LA T, ODONTOID PLEASE DO SWIMMER'S VIEW FOLLOW UP HARDWARE AND ALIGNMENT, S/P ACDF, RECENT FALLS CERVICAL SPINE 2 OR 3 [facility] 02-17-2019 CERVICAL SPINE 2 OR 3 [facility] Department of Radiology [address] [place] [id number] Patient Name: MATTY GARCES : 1970 [...] findings. Electronically signed by:Jasmyn King. Transcribed by: [email or web address], User Resident: EMILE TINAJERO Electronically Signed by: JASMYN KING @ 02/20/2019 11:53 AM I personally read this/these film(s) with this resident Normal [facility] Comment on above: Order Comment: C-SPI NE 2 OR 3 VIEW POSTOP, EVALUATION HARDWARE AN ALIGNMENT BASIC METABOLIC PANELon 05-2 Calcium [Mass/Vol] 9.2 mg/dL Normal 8.6-10.3 [facility] Comment on above: Order Comment: No: D o not add to previous draw Performed By: #### 5 0103 #### [facility] [address] [place] [address], [place] Chloride [Moles/Vol] 101 mmol/L Normal 98-107 [facility] Comment on above: Order Comment: No: D o not add to previous draw Performed By: #### 5 0103 #### [facility] [address] [place] [address], [place] CO2 [Moles/Vol] 26 mmol/L Normal 21-31 [facility] Comment on above: Order Comment: No: D o not add to previous draw Performed By: #### 5 0103 #### [facility] [address] [place] [address], [place] Creatinine [Mass/Vol] 1.02 mg/dL Normal 0.70-1.30 [facility] Comment on above: Order Comment: No: D o not add to previous draw Performed By: #### 5 0103 #### [facility] [address] [place] [address], [place] GFR/1.73 sq M predicted among blacks MDRD (S/P/Bld) [Vol rate/Area] mL/min/{1.73_m2} Normal >60 [facility] Comment on above: Order Comment: No: D o not add to previous draw Performed By: #### 5 0103 #### [facility] [address] [place] [address], [facility] GFR/1.73 sq M predicted among non-blacks MDRD (S/P/Bld) [Vol rate/Area] mL/min/{1.73_m2} Normal >60 [facility] Comment on above: Order Comment: No: D o not add to previous draw Performed By: #### 5 0103 #### [facility] [address] [place] [address], [facility] Glucose [Mass/Vol] 124 mg/dL High 70-100 [facility] Comment on above: Order Comment: No: D o not add to previous draw Performed By: #### 5 0103 #### [facility] [address] [place] [address], [facility] Potassium [Moles/Vol] 3.9 mmol/L Normal 3.5-5.1 [facility] Comment on above: Order Comment: No: D o not add to previous draw Performed By: #### 5 0103 #### [facility] [address] [place] [address], [facility] Sodium [Moles/Vol] 137 mmol/L Normal 136-145 [facility] Comment on above: Order Comment: No: D o not add to previous draw Performed By: #### 5 0103 #### [facility] [address] [place] [address], [facility] Urea nitrogen [Mass/Vol] 15 mg/dL Normal 7-25 [facility] Comment on above: Order Comment: No: D o not add to previous draw Performed By: #### 5 0103 #### [facility] [address] [place] [address], [facility] CBC COMPLETE BLOOD COUNTon 0 - Erythrocyte distribution width (RBC) [Ratio] 13.9 % Normal 11.5-15.0 [facility] Comment on above: Order Comment: No: D o not add to previous draw Performed By: #### 5 0103 #### [facility] [address] [place] [address], [facility] Hematocrit (Bld) [Volume fraction] 50.0 % Normal 39.0-50.0 [facility] Comment on above: Order Comment: No: D o not add to previous draw Performed By: #### 5 0103 #### [facility] [address] [place] [id number], [facility] Hemoglobin (Bld) [Mass/Vol] 16.0 g/dL Normal 13.0-17.0 [facility] Comment on above: Order Comment: No: D o not add to previous draw Performed By: #### 5 0103 #### [facility] [address] [place] [id number], [facility] MCH (RBC) [Entitic mass] 27.5 pg Normal 27.0-33.0 [facility] Comment on above: Order Comment: No: D o not add to previous draw Performed By: #### 5 0103 #### [facility] [address] [place] [address], [facility] MCHC (RBC) [Mass/Vol] 32.0 g/dL Normal 32.0-35.0 [facility] Comment on above: Order Comment: No: D o not add to previous draw Performed By: #### 5 0103 #### [facility] [address] [place] [address], [facility] MCV (RBC) [Entitic vol] 85.9 fL Normal 82.0-98.0 [facility] Comment on above: Order Comment: No: D o not add to previous draw Performed By: #### 5 0103 #### [facility] [address] [place] [id number], [facility] Nucleated RBC/100 WBC (Bld) [Ratio] 0 % Normal 0-0 [facility] Comment on above: Order Comment: No: D o not add to previous draw Performed By: #### 5 0103 #### [facility] [address] [place] [address], [facility] PLAT CNT 249 10*3/uL Normal 150-400 [facility] Comment on above: Order Comment: No: D o not add to previous draw Performed By: #### 5 0103 #### [facility] [address] [place] [address], [facility] RBC (Bld) [#/Vol] 5.82 10*6/uL High 4.20-5.70 [facility] Comment on above: Order Comment: No: D o not add to previous draw Performed By: #### 5 0103 #### [facility] [address] [place] [address], [facility] WBC (Bld) [#/Vol] 15.85 10*3/uL High 4.00-10.60 [facility] Comment on above: Order Comment: No: D o not add to previous draw Performed By: #### 5 0103 #### [facility] [address] Operative Reporton 9 Operative Report MR#: [id number] I [facility] Pt. Name: Matty Garces Room #: [id number] Discharge Date: Birthdate: 1970 OPERATIVE REPORT DATE OF SURGERY: 01/30/2019 SURGEON: Radha Vieira M.D. 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 POSTOPERATIVE DIAGNOSIS: Failed instrumentation at C6-7 on the right. ELEVATOR SERVICE TECHNICIAN: ADENIKE Lugo. ANESTHESIA: Endotracheal, Hogan. PROCEDURES: [...] Radha Vieira M.D. Date Dict: 01/30/2019/04:52 P/Radha Veiira M.D. Date Trans: 01/31/2019 02:31 Eze/sasha [id number] cc: Venus Mendez M.D. [address] [place] [address] Normal [facility] CERVICAL SPINE 2 OR 3 [facility] 01-30-2019 CERVICAL SPINE 2 OR 3 [facility] Department of Radiology [address] [place] [address] Patient Name: MATTY GARCES : 1970 Sex: M Age: Race: White Pt. Location: Patient Status: O Ordered Date: 01/30/2019 7:05:00 AM Completed Date: 01/30/2019 04:12 PM Requesting Provider: RADHA VIEIRA Attending Provider: RADHA VIEIRA Report Copy To: Signs & Symptoms: C6-7 ACDF History: C6-7 ACDF Comments: C6-7 ACDF Exam: CERVICAL SPINE 2 OR 3 [facility] CERVICAL SPINE 2 OR 3 [facility] 01/30/2019 4:12 PM EDT SIGNS AND SYMPTOMS: C6-7 ACDF TECHNOLOGIST COMMENTS: Intra op ACDF C6-7 with , 30 sec of fluoro time used QUESTION FOR THE RADIOLOGIST: C6-7 ACDF PROTOCOLS: AP, Odontoid and Lateral views were obtained. COMPARISON: None FINDINGS: 5 images were obtained. Fluoroscopic time as utilized above. IMPRESSION: For documentation Electronically signed by:Liz Montano. Transcribed by: [email or web address], User Resident: Electronically Signed by: LIZ MONTANO @ 01/30/2019 04:18 PM Normal [facility] Comment on above: Order Comment: C6-7 ACDF POC GLUCOSE LABon 01-30-2019 Glucose [Mass/Vol] 106 mg/dL High 70-100 [facility] Comment on above: Performed By: #### 5 0103 #### [facility] [address] [facility]. [address] *MRSA/MSSA DNA NASALon 01-23 *MRSA/MSSA DNA NASAL Clinical Report: (D ) Specimen: NASAL SWAB Collected: 01/23/2019 15:02 Status: Final Last Updated: 01/23/2019 20:14 MSSA DNA (Final) Methicillin Susceptible Staphylococcus aureus DNA Detected MRSA DNA (Final) No Methicillin Resistant Staphylococcus aureus DNA Detected Normal [facility] Comment on above: Performed By: #### 5 0103 #### [facility] [address] [facility]. [address] APTTon 01-23-2019 aPTT Coag (Bld) [Time] 35.4 s High 25.0-35.0 [facility] Comment on above: Result Comment: ALL [...] THIS PURPOSE. Performed By: #### 5 7307, 67405 #### [facility] [address] [place] [address], [facility] BASIC METABOLIC PANELon 01-11 Calcium [Mass/Vol] 9.5 mg/dL Normal 8.6-10.3 [facility] Comment on above: Performed By: #### 5 7307, 64553 #### [facility] [address] [facility] [place] [address], [facility] Chloride [Moles/Vol] 101 mmol/L Normal 98-107 [facility] Comment on above: Performed By: #### 5 7306, 44949 #### [facility] [address] [place] [address], [place] CO2 [Moles/Vol] 29 mmol/L Normal 21-31 [facility] Comment on above: Performed By: #### 5 7306, 42848 #### [facility] [address] [place] [address], [place] Creatinine [Mass/Vol] 1.08 mg/dL Normal 0.70-1.30 [facility] Comment on above: Performed By: #### 5 7306, 00711 #### [facility] [address] [place] [address], [place] GFR/1.73 sq M predicted among blacks MDRD (S/P/Bld) [Vol rate/Area] mL/min/{1.73_m2} Normal >60 [facility] Comment on above: Performed By: #### 5 7306, 01049 #### [facility] [address] [place] [address], [place] GFR/1.73 sq M predicted among non-blacks MDRD (S/P/Bld) [Vol rate/Area] mL/min/{1.73_m2} Normal >60 [facility] Comment on above: Performed By: #### 5 7306, 47776 #### [facility] [address] [place] [address], [place] Glucose [Mass/Vol] 87 mg/dL Normal 70-100 [facility] Comment on above: Performed By: #### 5 7306, 53970 #### [facility] [address] [place] [address], [place] Potassium [Moles/Vol] 4.0 mmol/L Normal 3.5-5.1 [facility] Comment on above: Performed By: #### 5 7307, 31221 #### [facility] [address] [facility] [place] [address], [facility] Sodium [Moles/Vol] 137 mmol/L Normal 136-145 [facility] Comment on above: Performed By: #### 5 73, 73834 #### [facility] [address] [facility] [place] [address], [facility] Urea nitrogen [Mass/Vol] 12 mg/dL Normal 7-25 [facility] Comment on above: Performed By: #### 5 73, 94750 #### [facility] [address] [facility] [place] [address], [facility] CBC W/DIFFon 01-23-2019 ABS BASOPHILS 0.1 10*3/uL Normal 0.0-0.2 [facility] Comment on above: Performed By: #### 5 73, 66585 #### [facility] [address] [facility]. [address] ABS IMM GRANS 0.0 10*3/uL Normal 0.0-0.2 [facility] Comment on above: Performed By: #### 5 73, 07690 #### [facility] [address] [facility] [place] [address], [facility] ABS NEUTROPHILS 5.3 10*3/uL Normal 1.6-7.6 The [facility] Comment on above: Performed By: #### 5 7307, 71922 #### [facility] [address] [facility] [place] [address], [facility] Basophils/100 WBC (Bld) 0.9 % Normal 0.0-1.0 [facility] Comment on above: Performed By: #### 5 7307, 79016 #### [facility] [address] [facility] [place] [address], [facility] Eosinophils (Bld) [#/Vol] 0.2 10*3/uL Normal 0.0-0.5 [facility] Comment on above: Performed By: #### 5 7306, 69339 #### [facility] [address] [place] [address], [facility] Eosinophils/100 WBC (Bld) 2.3 % Normal 0.0-6.0 [facility] Comment on above: Performed By: #### 5 7306, 37921 #### [facility] [address] [place] [address], [facility] Erythrocyte distribution width (RBC) [Ratio] 13.8 % Normal 11.5-15.0 [facility] Comment on above: Performed By: #### 5 7306, 79088 #### [facility] [address] [place] [address], [facility] Hematocrit (Bld) [Volume fraction] 49.6 % Normal 39.0-50.0 [facility] Comment on above: Performed By: #### 5 7306, 94201 #### [facility] [address] [place] [address], [facility] Hemoglobin (Bld) [Mass/Vol] 16.4 g/dL Normal 13.0-17.0 [facility] Comment on above: Performed By: #### 5 7306, 84116 #### [facility] [address] [place] [address], [facility] IMMATURE GRANS 0.5 % Normal 0.0-1.0 [facility] Comment on above: Performed By: #### 5 7306, 46924 #### [facility] [address] [place] [address], [facility] Lymphocytes (Bld) [#/Vol] 1.2 10*3/uL Normal 1.2-4.0 [facility] Comment on above: Performed By: #### 5 7306, 52483 #### [facility] [address] [place] [id number], [facility] Lymphocytes/100 WBC (Bld) 16.6 % Low 20.0-45.0 [facility] Comment on above: Performed By: #### 7306, 26857 #### [facility] [address] [place] [address], [facility] MCH (RBC) [Entitic mass] 27.8 pg Normal 27.0-33.0 [facility] Comment on above: Performed By: #### 5 7306, 58820 #### [facility] [address] MCHC (RBC) [Mass/Vol] 33.1 g/dL Normal 32.0-35.0 [facility] Comment on above: Performed By: #### 5 7306, 24286 #### [facility] [address] [place] [address], [facility] MCV (RBC) [Entitic vol] 84.2 fL Normal 82.0-98.0 [facility] Comment on above: Performed By: #### 5 7306, 49769 #### [facility] [address] [facility] [place] [address], [facility] Monocytes (Bld) [#/Vol] 0.7 10*3/uL Normal 0.1-1.0 [facility] Comment on above: Performed By: #### 5 7306, 66704 #### [facility] [address] [place] [address], [facility] MONOS 9.4 % Normal 5.0-12.0 [facility] Comment on above: Performed By: #### 5 7306, 65197 #### [facility] [address] [place] [address], [facility] Neutrophils/100 WBC (Bld) 70.3 % Normal 40.0-72.0 [facility] Comment on above: Performed By: #### 7306, 50958 #### [facility] [address] [place] [address], [facility] Nucleated RBC/100 WBC (Bld) [Ratio] 0 % Normal 0-0 [facility] Comment on above: Performed By: #### 5 7307, 09771 #### [facility] [address] [place] [address], [facility] PLAT CNT 235 10*3/uL Normal 150-400 [facility] Comment on above: Performed By: #### 5 7307, 05162 #### [facility] [address] RBC (Bld) [#/Vol] 5.89 10*6/uL High 4.20-5.70 The [facility] Comment on above: Performed By: #### 5 7307, 60505 #### [facility] [address] WBC (Bld) [#/Vol] 7.48 10*3/uL Normal 4.00-10.60 [facility] Comment on above: Performed By: #### 5 7307, 87690 #### [facility] [address] PROTHROMBIN TIMEon 9 INR Coag (PPP) [Relative time] 1.12 {INR} Normal 0.91-1.16 [facility] Comment on above: [...] CHEST 1995;108:231S-246S. Performed By: #### 5 7307, 08054 #### [facility] [address] PT Coag (PPP) [Time] 14.4 s Normal 12.3-14.8 [facility] Comment on above: Result Comment: ALL RESULTS MUST BE INTERPRETED WITH RESPECT TO BLOOD DRAWING ARTIFACT OR DILUTION ERROR OF ANTICOAGULANT AT THE TIME OF SAMPLING. Performed By: #### 5 7307, 99587 #### [facility] [address] TYPE AND SCREENon 01-23-2019 ABO INTERPRETATION A Normal [facility] Comment on above: Performed By: #### 5 7307, 73116 #### [facility] [address] [place] [address], [facility] RH INTERPRETATION Positive Normal [facility] Comment on above: Performed By: #### 5 7307, 68911 #### [facility] [address] 3D CERVICAL SPINE WO CONT RASTon 01-12-2019 CT 3D CERVICAL SPINE WO CONTRAST [facility] Department of Radiology [address] [place] [id number] Patient Name: MATTY GARCES : 1970 Sex: M Age: Race: White Pt. Location: Patient Status: D Ordered Date: 01/10/2019 2:15:00 PM Completed Date: 01/12/2019 10:32 AM Requesting Provider: RADHA VIEIRA Attending Provider: RADHA VIEIRA Report Copy To: VENUS MENDEZ Signs & Symptoms: M48.02 Spinal stenosis, cervical region I10 History: Ursula para auth # [id number] 01/10/19-02/09/19 [id number] *er Comments: Exam: CT 3D CERVICAL SPINE [...] incomplete Electronically signed by:Ten Garland. Transcribed by: [email or web address], User Resident: Electronically Signed by: TEN GARLAND @ 01/13/2019 09:18 AM [place] [facility] CERVICAL SPINE 2 OR 3 [facility] 01-05-2019 CERVICAL SPINE 2 OR 3 [facility] Department of Radiology [address] [place] [id number] Patient Name: MATTY GARCES : 1970 Sex: M Age: Race: White Pt. Location: Patient Status: O Ordered Date: 01/05/2019 9:00:00 AM Completed Date: 01/05/2019 09:06 AM Requesting Provider: RADHA VIEIRA Attending Provider: RADHA VIEIRA Report Copy To: Signs & Symptoms: M48.02 Spinal stenosis, cervical region I10 History: [place] Comments: , , , Ordering Provider - RADHA VIEIRA MD , Exam: CERVICAL SPINE 2 OR 3 [facility] CERVICAL SPINE 2 OR 3 S [...] findings. Electronically signed by:Ten Garland. Transcribed by: [email or web address], User Resident: KYLEIGH DELA CRUZ Electronically Signed by: TEN GARLAND @ 01/05/2019 12:37 PM I personally read this/these film(s) with this resident Normal [facility] Comment on above: Order Comment: , , = ========= , Ordering Provider - RADHA VIEIRA MD , CERVICAL SPINE 2 OR 3 [facility] 08-30-2018 CERVICAL SPINE 2 OR 3 [facility] Department of Radiology [address] [place] [phone] Patient Name: MATTY GARCES : 1970 Sex: M Age: Race: White Pt. Location: Patient Status: O Ordered Date: 08/30/2018 9:35:00 AM Completed Date: 08/30/2018 09:43 AM Requesting Provider: RADHA VIEIRA Attending Provider: RADAH VIEIRA Report Copy To: VENUS MENDEZ Signs & Symptoms: M50.90 Cervical disc disorder, unsp, unspecified cervical region I10 History: [place] Comments: , POST OP XRAY AP/LAT ONLY [...] findings. Electronically signed by:Jasmyn King. Transcribed by: [email or web address], User Resident: RYAN HEAD Electronically Signed by: JASMYN KING @ 08/30/2018 05:45 PM I personally read this/these film(s) with this resident Normal [facility] Comment on above: Order Comment: , POS T OP XRAY AP/LAT ONLY , POST OP XRAY AP/LAT ONLY , , , Ordering Provider - RADHA VIEIRA MD , Operative Reporton 8 Operative Report MR#: [id number] I [facility] Pt. Name: Matty Garces Room #: [id number] Discharge Date: Birthdate: 1970 OPERATIVE REPORT DATE OF SURGERY: 08/17/2018 SURGEON: Radha Vieira M.D. PREOPERATIVE DIAGNOSIS: Herniated cervical disk at C6-7. POSTOPERATIVE DIAGNOSIS: Herniated cervical disk at C6-7. ELEVATOR SERVICE TECHNICIAN: ADENIKE Larios. ANESTHESIA: Endotracheal, Braida. PROCEDURE: [...] Vieira M.D. Date Trans: 08/17/2018 11:25 P/sasha [id number] cc: Venus Mendez M.D. [address], [facility] [address] [place] [facility] CERVICAL SPINE 2 OR 3 [facility] 08-17-2018 CERVICAL SPINE 2 OR 3 [facility] Department of Radiology [address] [place] [address] Patient Name: MATTY GARCES : 1970 Sex: M Age: Race: White Pt. Location: Patient Status: I Ordered Date: 08/17/2018 8:30:00 AM Completed Date: 08/17/2018 11:49 AM Requesting Provider: RADHA VIEIRA Attending Provider: RADHA VIEIRA Report Copy To: Signs & Symptoms: C6-7 ACDF with History: C6-7 ACDF with Comments: C6-7 ACDF with Exam: CERVICAL SPINE 2 OR 3 [facility] CERVICAL SPINE 2 OR 3 S [...] findings. Electronically signed by:Bernice Hoyt. Transcribed by: [email or web address], User Resident: EMILE TINAJERO Electronically Signed by: BERNICE HOYT @ 08/18/2018 01:06 PM I personally read this/these film(s) with this resident Normal [facility] Comment on above: Order Comment: C6-7 ACDF with POC GLUCOSE LABon 08-17-2018 Glucose [Mass/Vol] 113 mg/dL High 70-100 [facility] Comment on above: Performed By: #### 8 5499 #### [facility] [address] [facility]. [address] RBC'S 2 UNITSon 08-17-2018 CROSSMATCH INTERP 1 COMP Normal [facility] Comment on above: Performed By: #### 8 6002 #### [facility] [address] [facility]. [address] CROSSMATCH INTERP 2 COMP Normal [facility] Comment on above: Performed By: #### 8 6002 #### [facility] [address] [facility]. [address] PRODUCT CODE 1 E0336 Normal [facility] Comment on above: Performed By: #### 8 6002 #### [facility] [address] [facility] [place] [address], [facility] PRODUCT CODE 2 E0336 Normal [facility] Comment on above: Performed By: #### 8 6002 #### [facility] [address] [place] [address], [facility] PRODUCT STATUS 1 RE Normal The [facility] Comment on above: Result Comment: Resu lt changed by IF on 08/20/2018 07:48. The previous value was XM. Performed By: #### 8 6002 #### [facility] [address] [place] [address], [facility] PRODUCT STATUS 2 RE Normal The [facility] Comment on above: Result Comment: Resu lt changed by IF on 08/20/2018 07:48. The previous value was XM. Performed By: #### 8 6002 #### [facility] [address] [place] [address], [place] UNIT ABO [address] [facility] Comment on above: Performed By: #### 8 6002 #### [facility] [address] [place] [address], [place] UNIT ABO 2 A Normal [facility] Comment on above: Performed By: #### 8 6002 #### [facility] [address] [place] [address], [place] UNIT ID 1 [id number] Normal The [facility] Comment on above: Performed By: #### 8 6002 #### [facility] [address] [place] [address], [facility] UNIT ID 2 [id number] Normal The [facility] Comment on above: Performed By: #### 8 6002 #### [facility] [address] [place] [address], [place] UNIT RH 1 Positive Normal [facility] Comment on above: Performed By: #### 8 6002 #### [facility] [address] [place] [address], [place] UNIT RH 2 Positive Normal [facility] Comment on above: Performed By: #### 8 6002 #### [facility] [address] [place] [address], [facility] *MRSA/MSSA CULTUREon 08-02- 018 *MRSA/MSSA CULTURE Clinical Report: (D) Specimen: NASAL SWAB Collected: 08/02/2018 12:37 Status: Final Last Updated: 08/03/2018 14:26 ISO (Final) No Methicillin Resistant Staphylococcus aureus Isolated (MRSA) ISO (Final) Methicillin Sensitive Staphylococcus aureus (MSSA) Isolated Normal [facility] Comment on above: Performed By: #### 3 1302 #### [facility] [address] APTTon 08-02-2018 aPTT Coag (Bld) [Time] 31.2 s Normal 25.0-35.0 [facility] Comment on above: Result Comment: ALL [...] THIS PURPOSE. Performed By: #### 5 7307, 14046 #### [facility] [address] BASIC METABOLIC PANELon 07-15 Calcium [Mass/Vol] 9.4 mg/dL Normal 8.6-10.3 [facility] Comment on above: Performed By: #### 0 0071 #### [facility] [address] [place] [address], [facility] Chloride [Moles/Vol] 103 mmol/L Normal 98-107 [facility] Comment on above: Performed By: #### 0 0071 #### [facility] [address] [place] [address], [facility] CO2 [Moles/Vol] 29 mmol/L Normal 21-31 [facility] Comment on above: Performed By: #### 0 0071 #### [facility] [address] Creatinine [Mass/Vol] 1.06 mg/dL Normal 0.70-1.30 [facility] Comment on above: Performed By: #### 0 0071 #### [facility] [address] [place] [address], [facility] GFR/1.73 sq M predicted among blacks MDRD (S/P/Bld) [Vol rate/Area] mL/min/{1.73_m2} Normal >60 [facility] Comment on above: Performed By: #### 0 0071 #### [facility] [address] [place] [address], [facility] GFR/1.73 sq M predicted among non-blacks MDRD (S/P/Bld) [Vol rate/Area] mL/min/{1.73_m2} Normal >60 [facility] Comment on above: Performed By: #### 0 0071 #### [facility] [address] [place] [address], [facility] Glucose [Mass/Vol] 84 mg/dL Normal 70-100 [facility] Comment on above: Performed By: #### 0 0071 #### [facility] [address] [place] [address], [facility] Potassium [Moles/Vol] 4.0 mmol/L Normal 3.5-5.1 [facility] Comment on above: Performed By: #### 0 0071 #### [facility] [address] [place] [address], [place] Sodium [Moles/Vol] 140 mmol/L Normal 136-145 [facility] Comment on above: Performed By: #### 0 0071 #### [facility] [address] [place] [address], [facility] Urea nitrogen [Mass/Vol] 20 mg/dL Normal 7-25 [facility] Comment on above: Performed By: #### 0 0071 #### [facility] [address] [place] [address], [place] CBC W/DIFFon 08-02-2018 ABS BASOPHILS 0.1 10*3/uL Normal 0.0-0.2 [facility] Comment on above: Performed By: #### 5 0103 #### [facility] [address] [place] [address], [facility] ABS IMM GRANS 0.1 10*3/uL Normal 0.0-0.2 [facility] Comment on above: Performed By: #### 5 0103 #### [facility] [address] [facility] [place] [address], [facility] ABS NEUTROPHILS 4.2 10*3/uL Normal 1.6-7.6 The [facility] Comment on above: Performed By: #### 5 0103 #### [facility] [address] [facility] [place] [address], [facility] Basophils/100 WBC (Bld) 1.3 % High 0.0-1.0 [facility] Comment on above: Performed By: #### 5 0103 #### [facility] [address] [place] [address], [facility] Eosinophils (Bld) [#/Vol] 0.1 10*3/uL Normal 0.0-0.5 [facility] Comment on above: Performed By: #### 5 0103 #### [facility] [address] [place] [address], [facility] Eosinophils/100 WBC (Bld) 2.0 % Normal 0.0-6.0 [facility] Comment on above: Performed By: #### 5 0103 #### [facility] [address] Erythrocyte distribution width (RBC) [Ratio] 13.6 % Normal 11.5-15.0 [facility] Comment on above: Performed By: #### 5 0103 #### [facility] [address] [place] [address], [facility] Hematocrit (Bld) [Volume fraction] 44.3 % Normal 39.0-50.0 [facility] Comment on above: Performed By: #### 5 0103 #### [facility] [address] [facility] [place] [address], [facility] Hemoglobin (Bld) [Mass/Vol] 15.1 g/dL Normal 13.0-17.0 [facility] Comment on above: Performed By: #### 5 3 #### [facility] [address] [place] [address], [facility] IMMATURE GRANS 1.1 % High 0.0-1.0 [facility] Comment on above: Performed By: #### 3 #### [facility] [address] [place] [address], [facility] Lymphocytes (Bld) [#/Vol] 1.2 10*3/uL Normal 1.2-4.0 [facility] Comment on above: Performed By: #### 5 3 #### [facility] [address] Lymphocytes/100 WBC (Bld) 18.3 % Low 20.0-45.0 [facility] Comment on above: Performed By: #### 5 3 #### [facility] [address] [place] [address], [facility] MCH (RBC) [Entitic mass] 29.0 pg Normal 27.0-33.0 [facility] Comment on above: Performed By: #### 5 3 #### [facility] [address] [place] [address], [facility] MCHC (RBC) [Mass/Vol] 34.1 g/dL Normal 32.0-35.0 [facility] Comment on above: Performed By: #### 5 3 #### [facility] [address] [place] [address], [facility] MCV (RBC) [Entitic vol] 85.0 fL Normal 82.0-98.0 [facility] Comment on above: Performed By: #### 0103 #### [facility] [address] [place] [address], [facility] Monocytes (Bld) [#/Vol] 0.7 10*3/uL Normal 0.1-1.0 [facility] Comment on above: Performed By: #### 102 #### [facility] [address] [facility] [place] [address], [facility] MONOS 11.1 % Normal 5.0-12.0 [facility] Comment on above: Performed By: #### 102 #### [facility] [address] [facility] [place] [address], [facility] Neutrophils/100 WBC (Bld) 66.2 % Normal 40.0-72.0 [facility] Comment on above: Performed By: #### 102 #### [facility] [address] [place] [address], [facility] Nucleated RBC/100 WBC (Bld) [Ratio] 0 % Normal 0-0 [facility] Comment on above: Performed By: #### 102 #### [facility] [address] [facility] [place] [address], [facility] PLAT CNT 179 10*3/uL Normal 150-400 [facility] Comment on above: Performed By: #### 102 #### [facility] [address] [place] [address], [facility] RBC (Bld) [#/Vol] 5.21 10*6/uL Normal 4.20-5.70 [facility] Comment on above: Performed By: #### 102 #### [facility] [address] [facility] [place] [address], [facility] WBC (Bld) [#/Vol] 6.39 10*3/uL Normal 4.00-10.60 [facility] Comment on above: Performed By: #### 3 #### [address] CERVICAL SPINE 4 OR 5 VIEWSo n 08-02-2018 CERVICAL SPINE 4 OR 5 VIEWS [facility] Department of Radiology [address] [place] [id number] Patient Name: MATTY GARCES : 1970 [...] findings. Electronically signed by:Jasmyn King. Transcribed by: [email or web address], User Resident: EMILE TINAJERO Electronically Signed by: JASMYN KING @ 08/03/2018 11:58 AM I personally read this/these film(s) with this resident Normal [facility] Comment on above: Order Comment: , PRE OP XRAY AP/LAT \EANDE\ FLEX/EX , PREOP XRAY AP/LAT \EANDE\ FLEX/EX , , , Ordering Provider - RADHA VIEIRA MD , PROTHROMBIN TIMEon 8 INR Coag (PPP) [Relative time] 1.15 {INR} Normal 0.91-1.16 [facility] Comment on above: Result Comment: ACCC [...] CHEST 1995;108:[id number]. Performed By: #### 5 7307, [id number] #### [facility] [address] [place] [address], [facility] PT Coag (PPP) [Time] 14.7 s Normal 12.3-14.8 [facility] Comment on above: Result Comment: ALL RESULTS MUST BE INTERPRETED WITH RESPECT TO BLOOD DRAWING ARTIFACT OR DILUTION ERROR OF ANTICOAGULANT AT THE TIME OF SAMPLING. Performed By: #### 5 7307, [id number] #### [facility] [address] [place] [address], [facility] TYPE AND SCREENon 08-02-2018 ABO INTERPRETATION A Normal [facility] Comment on above: Order Comment: 2 uni ts 2 units 2 units 2 units 2 units Performed By: #### 6 2586 #### [facility] [address] [place] [address], [facility] RH INTERPRETATION Positive Normal [facility] Comment on above: Order Comment: 2 uni ts 2 units 2 units 2 units 2 units Performed By: #### 6 2586 #### [facility] [address] [place] [address], [facility] URINALYSIS REFLEXon 08-02-20 18 Appearance (U) CLEAR Normal CLEAR [facility] Comment on above: Performed By: #### 3 0965 #### [facility] [address] [place] [address], [facility] Bilirubin [Mass/Vol] Negative Normal NEGATIVE [facility] Comment on above: Performed By: #### 3 0965 #### [facility] [address] [place] [address], [facility] BLOOD Negative Normal NEGATIVE [facility] Comment on above: Performed By: #### 3 0965 #### [facility] [address] [place] [address], [facility] Color (U) YELLOW Normal YELLOW [facility] Comment on above: Performed By: #### 3 0965 #### [facility] [address] [place] [address], [place] Glucose [Mass/Vol] 150 mg/dL Abnormal NEGATIVE [facility] on above: Performed By: #### 3 0965 #### [facility] [address] [place] [address], [facility] KETONE Negative Normal NEGATIVE [facility] Comment on above: Performed By: #### 3 0965 #### [facility] [address] [place] [address], [place] Negative Normal NEGATIVE [facility] Comment on above: Performed By: #### 3 0965 #### [facility] [address] [place] [address], [facility] MICRO NOT DONE negative chemical reactions unless requested in original order Normal [facility] Comment on above: Performed By: #### 3 0965 #### [facility] [address] [place] [address], [place] Nitrite Ql (U) Negative Normal NEGATIVE [facility] Comment on above: Performed By: #### 3 0965 #### [facility] [address] [place] [address], [facility] pH (Bld) 5.0 Normal 5.0-8.0 [facility] Comment on above: Performed By: #### 3 0965 #### [facility] [address] [facility] [place] [address], [facility] Protein (U) [Mass/Vol] Negative Normal NEGATIVE [facility] Comment on above: Performed By: #### 3 0965 #### [facility] [address] [place] [address], [facility] SPEC GRAV 1.024 High 1.015-1.020 [facility] Comment on above: Performed By: #### 3 0965 #### [facility] [address] [place] [address], [facility] Vital Signs Date Time Vital Sign Value Performing Clinician Molly bunn 02-25-2022 10:30-0400 Blood Pressure Location Viola Lue [facility] 02-25-2022 10:30-0400 Diastolic blood pressure 107 mm[Hg] Viola Lue [facility] 02-25-2022 10:30-0400 Heart rate 74 /min Viola Lue [facility] 02-25-2022 10:30-0400 Respiratory rate 16 /min Viola Lue [facility] [employer] 02-25-2022 10:30-0400 Systolic blood pressure 157 mm[Hg] Viola Lue [facility] Encounters Encounter Date Encounter Type Care Provider Facility Start: 11-29-2023 End: 11-30-2023 ambulatory Diallo Beauchamp MD [facility] Start: 10-18-2023 End: 10-19-2023 ambulatory Diallo Beauchamp MD [facility] Start: 09-27-2023 End: 09-27-2023 ambulatory RUBÉN GEIGER Not Available Start: 08-30-2023 End: 08-31-2023 ambulatory Diallo Beauchamp MD Facility:[facility] Start: 07-12-2023 End: 07-13-2023 ambulatory Diallo Beauchamp MD Facility:[facility] Start: 06-14-2023 End: 06-15-2023 ambulatory Diallo Beauchamp MD Facility:[facility] Start: 03-11-2023 End: 03-11-2023 ambulatory Rubén Geiger Facility:[facility] Start: 12-06-2022 End: 12-06-[address] VENUS MENDEZ . Facility:[facility] Start: 12-05-2022 Encounter for genera l adult medical examination without abnormal findings DR VENUS MENDEZ . [facility] Start: 12-01-2022 End: 12-02-[address] VENUS [...] encounter procedure Viola Grullon [facility] Start: 01-04-2022 End: 01-05-[address] VENUS MENDEZ . Facility: Start: 01-30-2019 End: 02-01-2019 Evaluation and management of inpatient PROVIDER UNKNOWN Facility:[facility] Start: 08-17-2018 End: 08-18-2018 Patient encounter procedure PROVIDER UNKNOWN Facility:[facility] Procedures Date Procedure Procedure Detail Performing Clinician Start: 12-01-[address] FRANKLIN MENDEZ . Comment on above: Performed By: #### P [facility] #### [facility] [address] [place] [address] Dr. Shabnam Rae Start: 01-30-2019 FUSION CERV JT W INT BD FUS DEV, ANT APPR A COL, OPEN AZEDINE MEDHKOUR Start: 01-30-2019 REMOVAL OF INT FIX F ROM CERVCAL VERTEBRA, OPEN APPROACH AZ[facility]INE [facility] Start: 01-23-2019 Antibody screen PROVIDE R UNKNOWN Comment on above: Performed By: #### 5 7307, 15300 #### [facility] [address] Start: 08-17-2018 ANESTH SPINE CORD SURGERY [...] units Performed By: #### 6 2586 #### [facility] [address] Colonoscopy Viola Grullon Hemorrhoids (disorder) Viola Lue Hernia of abdominal cavity (disorder) Viola Synterventione Tonsillectomy Viola Synterventionlucy Payers Date Payer Category Payer Self-pay 2022 Medicaid [id number] 2022 Unknown 1970 Unknown [id number] 2.16.8 [id number] 1970 Unknown [id number] 2.16.8 40.1.668756.3.579.2.647 1970 Unknown [id number] 2.16.84 0.1.170684.3.579.2.593 1970 Unknown [id number] 2.16.84 0.1.254350.3.579.2.593 1970 Unknown [id number] 2.16.84 0.1.597191.3.579.2.593 1970 Unknown [id number] 2.16.84 0.1.691706.3.579.2.593 1970 Unknown [id number] 2.16.84 0.1.454456.3.579.2.593 1970 Unknown [id number] 2.16.84 0.1.018395.3.579.2.593 1970 Unknown [id number] 2.16.84 0.1.758239.3.579.2.1259 1970 Unknown [id number] 2.16. 840.1.511703.3.579.2.196 1970 Unknown [id number] 2.16. 840.1.339472.3.579.2.196 1970 Unknown [id number] 2.16. 840.1.427449.3.579.2.196 1970 Unknown [id number] 2.16. 840.1.588042.3.579.2.196 1970 Unknown [id number] 2.16. 840.1.038316.3.579.2.196 1959 Unknown [id number] Unknown [id number] Unknown [id number] 2.16.8 40.1.896520.3.579.2.531 Social History Date Type Detail Facility Tobacco smoking status No Smoking Status Entered [facility] Sex Assigned At Male [facility] Functional Status Date Assessment Result Facility 02-25-2022 Functional Status N/A [facility] Progress note 06-09-2023 Note Date & Type Note Facility 06-09-2023 Note [facility] Continue GDMT- Diuretic therapy Monitor daily weights, I&O, fluid restriction 1.5-2L/day, renal function and electrolytes- [facility] Clinical Note 03-26-2022 Note Date & [...] authenticated by: ALVINA CAICEDO Date: 2022-03-26 10:47 [facility] Discharge instructions 02-25-2022 Note Date & Type [...] Watch the hydrocele for any changes. Take [id number] and prescription medicines only as told by [...] 02/17/2011 Document Revised: 09/10/2018 Document Reviewed: 09/10/2018 [employer] Patient Education 2019 [employer]. Follow Up Care 01/28/2022 10:36:35 With:Mitchel DELGADO, [place] Gregorio, URO Address: When: Unknown [facility] Evaluation + Plan note Note Date & Type Note Facility Evaluation + Plan note No data available for this section [facility] Progress note Note Date & Type Note Facility Progress note No data available for this section [facility] Summary Purpose Family History No Family [...] Records Found Hospital Course Note MR#: [id number] [place] Pt. Name: Matty Garces Admitted: 01/30/2019 Discharged: [...] section and content) DATE CREATED AUTHOR 07/19/2019 [facility] DATE CREATED AUTHOR AUTHOR'S ORGANIZ ATION 02/27/2022 [facility] DATE CREATED AUTHOR AUTHOR'S ORGANIZ ATION 12/08/[address] [facility] DATE CREATED AUTHOR AUTHOR'S ORGANIZ ATION 03/17/2023 [facility] DATE CREATED AUTHOR AUTHOR'S ORGANIZ ATION 06/17/2023 [facility] DATE CREATED AUTHOR AUTHOR'S ORGANIZ ATION 09/27/2023 [facility] EPIC DATE CREATED AUTHOR AUTHOR'S ORGANIZ ATION 12/03/2023 [facility] Care Team (unrecognized sect ion and content) Personnel Name: Andrea DELGADO Venus Address: [address] [place] [address] FOR RECORDS PERTAINING TO PATIENTS WHO ARE [...] BE BASED ON THE PRIMARY CLINICAL RECORDS. [employer] [facility]. provides no warranty or guarantee of the accuracy or completeness of information in this document.
--- NOTE | 2023-12-28 10:08 | PM.PRESUREVA ---
History of Present Illness History of Present Illness Chief complaint: non pressure ulcer right foot Narrative: Patient presents for preadmission testing. Please see HPI from Dr. Vallejo dated 12/10/2023. Review of Systems ROS Narrative Please see ROS from Dr. Vallejo dated 12/10/2023 [facility] Medical History (Updated 12/28/23 @ 10:06 by Brittany Benavidez NP) Pain management contract signed ?Z02.89 - Encounter for other administrative examinations (ICD-10) Back pain ?M54.9 - Dorsalgia, unspecified (ICD-10) PTSD (post-traumatic stress disorder) ?F43.10 - Post-traumatic stress disorder, unspecified (ICD-10) Depression ?F32.A - Depression, unspecified (ICD-10) Dysphagia ?R13.10 - Dysphagia, unspecified (ICD-10) Uvulitis ?K12.2 - Cellulitis and abscess of mouth (ICD-10) Insomnia ?G47.00 - Insomnia, unspecified (ICD-10) Migraine ?G43.909 - Migraine, unspecified, not intractable, without status migrainosus (ICD-10) GERD (gastroesophageal reflux disease) ?K21.9 - Gastro-esophageal reflux disease without esophagitis (ICD-10) Dyspnea on exertion ?R06.09 - Other forms of dyspnea (ICD-10) Heart valve disorder ?I38 - Endocarditis, valve unspecified (ICD-10) Hypoglycemia ?E16.2 - Hypoglycemia, unspecified (ICD-10) Delayed recovery from anesthesia Chronic foot ulcer ?L97.509 - Non-pressure chronic ulcer of other part of unspecified foot with unspecified severity (ICD-10) 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 - Central serous chorioretinopathy, unspecified eye (ICD-10) Chronic pain ?G89.29 - Other chronic pain (ICD-10) Narcolepsy ?G47.419 - 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) Anxiety ?F41.9 - Anxiety disorder, unspecified (ICD-10) Upper back pain ?M54.9 - Dorsalgia, unspecified (ICD-10) Low back pain ?M54.50 - Low back pain, unspecified (ICD-10) TMJ (dislocation of temporomandibular joint) ?S03.00XA - Dislocation of jaw, unspecified side, initial encounter (ICD-10) Obesity ?E66.9 - Obesity, unspecified (ICD-10) Sleep apnea ?G47.30 - Sleep apnea, unspecified (ICD-10) Hypertension ?I10 - Essential (primary) hypertension (ICD-10) Surgical History (Updated 12/28/23 @ 10:06 by Brittany Benavidez NP) H/O foot surgery ?Z98.890 - Other specified postprocedural states (ICD-10) H/O radiofrequency ablation (RFA) of nerve of lumbar spine ?Z98.890 - Other specified postprocedural states (ICD-10) History of fusion of cervical spine ?Z98.1 - Arthrodesis status (ICD-10) H/O inguinal hernia repair ?Z98.890 - Other specified postprocedural states (ICD-10) ?Z87.19 - Personal history of other diseases of the digestive system (ICD-10) H/O repair of rotator cuff ?Z98.890 - Other specified postprocedural states (ICD-10) History of uvulopalatopharyngoplasty ?Z98.890 - Other specified postprocedural states (ICD-10) Social History (Updated 12/28/23 @ 09:34 by Brittany Benavidez NP) Within the past year, how often did you have a drink containing alcohol: monthly or less Smoking status: Never smoker Non-prescribed substance use: denies use Highest level of school completed/degree received: high school graduate Meds Home Medications and Allergies Home Medications ?Medication ?Instructions ?Recorded ?Confirmed ?Type carvedilol 25 mg tablet 25 mg PO BID 06/14/23 12/28/23 History citalopram 20 mg tablet 20 mg PO DAILY 06/14/23 12/28/23 History clonazepam 0.5 mg tablet 0.5 mg PO DAILY 06/14/23 12/28/23 History doxazosin 8 mg tablet 8 mg PO DAILY 06/14/23 12/28/23 History doxepin 10 mg capsule 10 mg PO DAILY PRN itching 06/14/23 12/28/23 History furosemide 20 mg tablet 20 mg PO DAILY 06/14/23 12/28/23 History gabapentin 600 mg tablet 600 mg PO BID 06/14/23 12/28/23 History glycopyrrolate 1 mg tablet 1 mg PO BID 06/14/23 12/28/23 History hydroxyzine pamoate 25 mg capsule 25 mg PO QPM 06/14/23 12/28/23 History meclizine 25 mg tablet 25 mg PO DAILY 06/14/23 12/28/23 History pantoprazole 40 mg tablet,delayed 40 mg PO DAILY 06/14/23 12/28/23 History release sildenafil 25 mg tablet 25 mg PO DAILY 06/14/23 12/28/23 History simvastatin 20 mg tablet 20 mg PO DAILY 06/14/23 12/28/23 History testosterone cypionate 100 mg/mL 100 mg subcut .EVERY 2 WEEKS 06/14/23 12/28/23 History intramuscular oil tizanidine 4 mg capsule 4 mg PO .EVERY NIGHT 06/14/23 12/28/23 History aspirin 81 mg tablet,delayed 81 mg PO DAILY 09/04/23 12/28/23 History release (Miguel Angel Low Dose Aspirin) modafinil 200 mg tablet 200 mg PO DAILY 09/04/23 12/28/23 History potassium chloride 10 mEq 10 meq PO Q12H 09/04/23 12/28/23 History tablet,extended release amantadine HCl 100 mg tablet 100 mg PO BID 12/28/23 12/28/23 History biotin 10,000 mcg capsule mcg PO 12/28/23 History cholecalciferol (vitamin D3) 125 5,000 unit PO DAILY 12/28/23 12/28/23 History mcg (5,000 unit) capsule melatonin 10 mg capsule 10 mg PO DAILY 12/28/23 12/28/23 History multivitamin (Daily Multi-Vitamin 1 tab PO DAILY 12/28/23 12/28/23 History tablet) ondansetron 4 mg disintegrating 4 mg PO TID-QID PRN nausea and 12/28/23 12/28/23 History tablet vomiting sumatriptan succinate 100 mg tablet 100 mg PO Q2H PRN migraine headache 12/28/23 12/28/23 History Allergies Allergy/AdvReac Type Severity Reaction Status Date / Time No Known Drug Allergies Allergy Verified 12/28/23 09:24 Exam Narrative Exam Narrative: Constitutional: Somnolent, in no acute distress, poorly groomed, nontoxic, vital signs as charted Head: Normocephalic, atraumatic Neck: Supple, normal appearance, Limited range of motion, no meningeal signs, no lymphadenopathy Respiratory: No respiratory distress, breath sounds clear Cardiovascular: Regular rate and rhythm, strong and regular heart tones Psychiatric: Oriented ?3, Bizarre affect, poor insight, poor concentration Assessment and Plan Assessment and Plan (1) Chronic foot ulcer: Plan Right hallux interphalangeal joint arthroplasty with wound debridement, possible graft application scheduled with Dr. Vallejo 01/03/2024.
[2023-12-28 10:48] LABS: Anion Gap 7.3; BUN Creatinine Ratio 13.2; Calcium 9.2 mg/dL (8.5-10.1); Carbon Dioxide 35.5 mmol/L (21.0-32.0); Chloride 100 mmol/L (98-107); Estimated GFR (African America >60 (>=60); Estimated GFR (Non-African Ame >60 (>=60); Glucose 104 mg/dL (74-106); Potassium 3.8 mmol/L (3.5-5.1); Sodium 139 mmol/L (136-145)
== END 2023-12-28 08:59 | disposition home or self-care (01) ==
LOC: PST 08:58
PROVIDERS: PCP Family Medicine; Visit Provider Podiatrist Foot & Ankle Surgery
DX: Z01.810 Encounter for preprocedural cardiovascular examination (principal); Z01.812 Encounter for preprocedural laboratory examination; Z01.818 Encounter for other preprocedural examination; L97.512 Non-pressure chronic ulcer of other part of right foot with fat layer exposed
CPT/HCPCS: 80048; 93005; G0463

== ENCOUNTER 2024-01-03 06:12 | Day surgery (SDC) | payer MEDICAID, SELFPAY ==
[2023-12-28 10:02] VITALS: BP 127/82; PULSE 83; TEMP 36.5; O2SAT 95; BMI 39.4
[2024-01-03] VITALS (9 sets, daily range): BP systolic 105–161; BP diastolic 61–93; PULSE 77–88; TEMP 36.2–36.4; O2SAT 92–98; BMI 38.6
--- NOTE | 2024-01-03 | FL_ITS ---
[address] [address] Patient Name: MATTY WADE MRN: [id number] date: 1970 Sex: M Assigned Patient Location: [facility] Current Patient Location: [facility] Accession/Order Number: [id number] Exam Date: 01/03/2024 08:27 Report Date: 01/03/2024 14:02 At the request of: CLARISA BOJORQUEZ Procedure: FL fluoroscopy <1hr NON-READ EXAM: FL fluoroscopy <1hr NON-READ HISTORY: TECHNIQUE: FINDINGS: Please see Operative Report. Electronically authenticated by: RADIOLOGIST NO Date: 01/03/2024 14:02
--- OUTSIDE RECORDS SUMMARY | 2024-01-03 06:14 | XMS_ITS | CCD ---
Author Organization [facility] Care Team Providers Care Traffic Maintenance Officer Name Role Phone UNKNOWN, PROVIDER Admitting Unavailable UNKNOWN, PROVIDER Attending Unavailable VENUS MENDEZ Referring Unavailable VENUS MENDEZ Primary Care Unavailable AR Procedure Practitioner Unavailab le UNKNOWN, PROVIDER Surgeon Unavailable AR Procedure Practitioner Unavailab le SANDRA BILL Surgeon Unavailable UNKNOWN, PROVIDER Admitting Unavailable UNKNOWN, PROVIDER Attending Unavailable VENUS MENDEZ Referring Unavailable VENUS MENDEZ Primary Care Unavailable AR Procedure Practitioner Unavailab le UNKNOWN, PROVIDER Surgeon Unavailable Venus Mendez Primary Care Physician [phone] DONOVAN Admitting Unavailable HOY [...] HOY ., DR DONOVAN Primary Care Unavailable PADMINI GUILLORY Admitting Unavailable MARCUS .PADMINI Attending Unavailable MORENA [...] ROBERTS Consulting Unavailable MARNIE RICHEY Consulting Unavailable FRANCE, MANUEL Consulting Unavailable MAYRA BERNAL Consulting Unavailable Rubén Geiger. Attending Unavailable Rubén Geiger Admitting Unavailable Venus Mendez Primary Care Unavailable Gilesteritis , Diallo Berkowitz Attending Unavailable Gieditis , Diallo Berkowitz Attending Unavailable Gieditis , Diallo Berkowitz Attending Unavailable Gilesteritis , Andisai Berkowitz Attending Unavailable Gilesteritis , Diallo Berkowitz Attending Unavailable RUBÉN GEIGER Attending Unavailable RUBÉN GEIGER Attending Unavailable Allergies Allergy Classification Reported Allergen(s) Allergy Type Date of Onset Reaction(s) Facility (1 source) Aspartame Drug Allergy 08-17-20 [facility] (1 source) avoid; Translations: [Unknown] Propensity to adverse reactions (disorder) 08-17-20 18 [facility] (1 source) vitamin B12; Translations: [cyanocobalamin] Drug Allergy Unknown (qualifier value) [facility] (1 source) Acetaminophen / HYDROcodone Drug Allergy [facility] (1 source) Corticosteroids Drug allergy (disorder) [facility] (1 source) fentaNYL Drug Allergy [facility] (1 source) Misc-Food; Translations: [Misc-Food] Food allergy (disorder) [facility] (1 source) Corticosteroids Drug allergy (disorder) 05-14-20 [facility] Repository Medications Current Medications Medication Drug [...] Onset: 3 Chronic Other aftercare (1 source) alf (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; Translations: [RETIREMENT 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 ASPIRIN] Onset: 3 Episodic Other aftercare (1 source) Other long-term (current) drug therapy; Translations: [OTH RETIREMENT CURRENT DRUG THERAPY] Onset: 3 Episodic Other [...] spine 5V*on 02-12 XR cervical spine 5V* [facility] [place] [address] [place], [place] [id number] XRay Report Signed Patient: Matty Garces MR#: [id number] 97 : 1970 Acct:[id number] Age/Sex: 52 / M ADM Date: 03/11/23 Loc: ICXD Room: Type: [facility] Attending Dr: Rubén Geiger MD Copies [...] Crow Contreras M.D.03/11/2023 3:48 PM Dictation Location: [place] [address] Transcribed By: [facility] 03/11/23 1548 Dictated By: Crow Contreras DO 03/11/23 1544 Signed By: 03/11/23 15[address] [facility] [address] CSPINE WO CONon CT [...] ANGEL SAID Date: 2022-12-06 06:37 Normal [facility] CT FACIAL BONES WO CONon CT [...] ANGEL SAID Date: 2022-12-06 06:41 Normal [facility] CT HEAD WO CONon 12-06-2022 CT [...] ANGEL SAID Date: 2022-12-06 06:39 Normal [facility] XR ELBOW RT MIN 3 VIEWSon XR ELBOW RT MIN 3 VIEWS Exam: Radiographs: XR ELBOW RT MIN 3 VIEWS Reason for exam: Elbow pain Comparison: None IMPRESSION: Right elbow degenerative changes. Olecranon spur. Remainder of the right elbow is unremarkable. Electronically authenticated by: MICHAEL CASANOVA Date: 2022-12-06 07:22 Normal [facility] XR FOREARM RT 2Von 3 XR FOREARM RT 2V Exam: Radiographs: XR FOREARM RT 2V Reason for exam: Forearm pain Comparison: None IMPRESSION: Mild degenerative changes in the right elbow and wrist. Right forearm is otherwise unremarkable. Electronically authenticated by: MICHAEL CASANOVA Date: 2022-12-06 08:07 Normal [facility] PSA, FREE AND TOTAL RATIOon 12-03-2022 % Free PSA 9.0 % Normal [facility] Comment on above: Result Comment: The [...] men. Performed By: #### P SAFREE #### [facility] [address] [address] [address] Shabnam Rae Prostate specific Ag [Mass/Vol] 5.9 ng/mL Critically high 0.0-4.0 [facility] Comment on above: Result Comment: Tanja BRANTLEY methodology. . According to the [employer], Serum PSA should decrease and [...] disease. Performed By: #### P SAFREE #### [facility] [address] [address] [address] Shabnam Rae PSA, Free 0.53 ng/mL Normal N/A [facility] Comment on above: Result Comment: Tanja ayala ECLIA methodology. Performed By: #### P SAFREE #### [facility] [address] [place] [address] Dr. Shabnam Rae INSULINon 12-02-2022 Insulin 20.2 uIU/mL Normal 2.6-24.9 [facility] Comment on above: Performed By: #### P SASC #### [facility] [address] [place] [address] Dr. Shabnam Rae TESTOSTERONE, TOTALon 2022 Testosterone [Mass/Vol] 256 ng/dL Critically low 264-916 [facility] Comment on above: Result Comment: Adul t male reference interval is based on a population of healthy nonobese males (BMI <30) between 19 and 39 years old. Dima, et.al. JCEM 2017,102;4600-4749. PMID: 95693551. Performed By: #### P SASC #### [facility] [address] [place] [address] Dr. Shabnam Rae CBC AUTO DIFFon 12-01-2022 BASO # 0.1 103/ul Normal 0.0-0.1 [facility] Comment on above: Performed By: #### P SASC #### [facility] [address] [place] [address] Dr. Shabnam Rae Basophils/100 WBC (Bld) 1.0 % Normal 0.2-2.0 [facility] Comment on above: Performed By: #### P SASC #### [facility] [address] [place] [address] Dr. Shabnam Rae EO # 0.1 103/ul Normal 0.0-0.7 [facility] Comment on above: Performed By: #### P SASC #### [facility] [address] [place] [address] Dr. Shabnam Rae Eosinophils/100 WBC (Bld) 1.8 % Normal 0.9-7.0 [facility] Comment on above: Performed By: #### P SASC #### [facility] [address] [place] [address] Dr. Shabnam Rae Erythrocyte distribution width (RBC) [Ratio] 14.8 % Normal 11.0-15.0 [facility] Comment on above: Performed By: #### P SASC #### [facility] [address] [address] [address] Shabnam Rae Hematocrit (Bld) [Volume fraction] 49.9 % Normal 42.0-54.0 [facility] Comment on above: Performed By: #### P SASC #### [facility] [address] [address] [address] Shabnam Rae Hemoglobin (Bld) [Mass/Vol] 16.0 g/dL Normal 14.0-18.0 [facility] Comment on above: Performed By: #### P SASC #### [facility] [address] [address] [address] Shabnam Rae IG # 0.04 10e3/ul Critically high 0.00-0.03 [facility] Comment on above: Performed By: #### P SASC #### [facility] [address] [address] [address] Shabnam Rae IG % 0.6 % Critically high 0.0-0.5 [facility] Comment on above: Performed By: #### P SASC #### [facility] [address] [address] [address] Shabnam Rae LYMPH # 1.0 103/ul Critically low 1.2-3.8 [facility] Comment on above: Performed By: #### P SASC #### [facility] [address] [address] [address] Shabnam Rae Lymphocytes/100 WBC (Bld) 16.2 % Critically low 20.5-60.0 [facility] Comment on above: Performed By: #### P SASC #### [facility] [address] [address] [address] Shabnam Rae MANUAL DIFF REQ NO Normal [facility] Comment on above: Performed By: #### P SASC #### [facility] [address] [address] [address] Shabnam Rae MCH (RBC) [Entitic mass] 27.7 pg Normal 25.9-34.0 [facility] Comment on above: Performed By: #### P SASC #### [facility] [address] [address] [address] Shabnam Rae MCHC (RBC) [Mass/Vol] 32.1 g/dL Normal 29.9-35.2 [facility] Comment on above: Performed By: #### P SASC #### [facility] [address] [address] [address] Shabnam Rae MCV (RBC) [Entitic vol] 86.3 fL Normal 80.0-94.0 [facility] Comment on above: Performed By: #### P SASC #### [facility] [address] [address] [address] Shabnam Rae MONO # 0.5 103/ul Normal 0.3-0.8 [facility] Comment on above: Performed By: #### P SASC #### [facility] [address] [address] [address] Shabnam Rae Monocytes/100 WBC (Bld) 7.6 % Normal 1.7-12.0 [facility] Comment on above: Performed By: #### P SASC #### [facility] [address] [address] [address] Shabnam Rae NEUT # 4.6 103/ul Normal 1.4-6.5 [facility] Comment on above: Performed By: #### P SASC #### [facility] [address] [address] [address] Shabnam Rae Neutrophils/100 WBC (Bld) 72.8 % Normal 43.0-75.0 [facility] Comment on above: Performed By: #### P SASC #### [facility] [address] [address] [address] Shabnam Rae Platelet mean volume (Bld) [Entitic vol] 9.8 fL Normal 9.5-13.5 [facility] Comment on above: Performed By: #### P SASC #### [facility] [address] [address] [address] Shabnam Rae PLT 203 103/ul Normal 150-450 [facility] Comment on above: Performed By: #### P SASC #### [facility] [address] [address] [address] Shabnam Rae RBC 5.78 106/ul Normal 4.70-6.10 [facility] Comment on above: Performed By: #### P SASC #### [facility] [address] [address] [address] Shabnam Rae WBC 6.3 103/ul Normal 4.0-11.0 [facility] Comment on above: Performed By: #### P SASC #### [facility] [address] [address] [address] Shabnam Rae FREE THYROXINE INDEX T7on FTI 2.05 Normal 1.30-4.50 [facility] Comment on above: Performed By: #### T SH, CMP, LIPID, T7, URIC #### [facility] [address] [place] [address] Dr. Shabnam Rae T3U 33.0 % Normal 33.0-40.0 [facility] Comment on above: Performed By: #### T SH, CMP, LIPID, T7, URIC #### [facility] [address] [address] [address] Shabnam Rae T4 [Mass/Vol] 6.20 ug/dL Normal 4.50-12.10 [facility] Comment on above: Performed By: #### T SH, CMP, LIPID, T7, URIC #### [facility] [address] [place] [address] Dr. Shabnam Rae GLYCOHEMOGLOBIN A1Con 2022 ADA RECOMMENDATION SEE BELOW Normal [facility] Comment on above: Result Comment: ADA RECOMMENDED LIMIT 4.0 - 6.0 ADA THERAPEUTIC TARGET < 7.0 ACTION SUGGESTED > 7.0 Performed By: #### P SASC #### [facility] [address] [place] [address] Dr. Shabnam Rae Glucose [Mass/Vol] 114 mg/dL Normal [facility] Comment on above: Performed By: #### P SASC #### [facility] [address] [place] [address] Dr. Shabnam Rae HbA1c (Bld) [Mass fraction] 5.6 % Normal 4.5-6.2 [facility] Comment on above: Performed By: #### P SASC #### [facility] [address] [place] [address] Dr. Shbanam Rae LIPID PROFILEon 12-01-2022 CHOL-HDL RATIO NORM SEE BELOW Normal [facility] Comment on above: Result Comment: 3.3 - 4.4 LOW RISK 4.4 - 7.1 AVERAGE RISK 7.1 - 11.0 MODERATE RISK >11.0 HIGH RISK Performed By: #### T SH, CMP, LIPID, T7, URIC #### [facility] [address] [place] [address] Dr. Shabnam Rae Cholesterol [Mass/Vol] 176 mg/dL Normal <=200 [facility] Comment on above: Performed By: #### T SH, CMP, LIPID, T7, URIC #### [facility] [address] [place] [address] Dr. Shabnam Rae Cholesterol in HDL [Mass/Vol] 48 mg/dL Normal 40-60 [facility] Comment on above: Performed By: #### T SH, CMP, LIPID, T7, URIC #### [facility] [address] [place] [address] Dr. Shabnam Rae Cholesterol in LDL [Mass/Vol] 108.2 mg/dL Normal [facility] Comment on above: Performed By: #### T SH, CMP, LIPID, T7, URIC #### [facility] [address] [place] [address] Dr. Shabnam Rae Cholesterol.total/Ch olesterol in HDL [Mass ratio] 3.7 {ratio} Normal [facility] Comment on above: Performed By: #### T SH, CMP, LIPID, T7, URIC #### [facility] [address] [place] [address] Dr. Shabnam Rae HDL NORMAL > or = 60 mg/dl - LOW CARDIOVASCULAR RISK <40 mg/dl - HIGH CARDIOVASCULAR RISK Normal [facility] Comment on above: Performed By: #### T SH, CMP, LIPID, T7, URIC #### [facility] [address] [address] [address] Shabnam Rae LDL CALC NORMAL SEE BELOW Normal [facility] Comment on above: Result Comment: <100 mg/dl OPTIMAL 100 - 129 mg/dl NEAR OR ABOVE OPTIMAL 130 - 159 mg/dl BORDERLINE HIGH 160 - 189 mg/dl HIGH >190 mg/dl VERY HIGH Performed By: #### T SH, CMP, LIPID, T7, URIC #### [facility] [address] [address] [address] Shabnam Rae Triglyceride [Mass/Vol] 99 mg/dL Normal <=150 [facility] Comment on above: Performed By: #### T SH, CMP, LIPID, T7, URIC #### [facility] [address] [address] [address] Shabnam Rae VLDL CALC 19.8 mg/dL Normal [facility] Comment on above: Performed By: #### T SH, CMP, LIPID, T7, URIC #### [facility] [address] [address] [address] Shabnam Rae PROF 14(COMP METB)on 023 Albumin [Mass/Vol] 4.1 g/dL Normal 3.4-5.0 [facility] Comment on above: Performed By: #### T SH, CMP, LIPID, T7, URIC #### [facility] [address] [address] [address] Shabnam Rae Albumin/Globulin [Mass ratio] 1.1 {ratio} Normal [facility] Comment on above: Performed By: #### T SH, CMP, LIPID, T7, URIC #### [facility] [address] [address] [address] Shabnam Rae ALP [Catalytic activity/Vol] 101 U/L Normal 46-116 [facility] Comment on above: Performed By: #### T SH, CMP, LIPID, T7, URIC #### [facility] [address] [address] [address] Shabnam Rae ALT [Catalytic activity/Vol] 26 U/L Normal 16-63 [facility] Comment on above: Performed By: #### T SH, CMP, LIPID, T7, URIC #### [facility] [address] [place] [address] Dr. Shabnam Rae Anion gap [Moles/Vol] 10.1 mmol/L Normal [facility] Comment on above: Performed By: #### T SH, CMP, LIPID, T7, URIC #### [facility] [address] [place] [address] Dr. Shabnam Rae AST [Catalytic activity/Vol] 19 U/L Normal 15-37 [facility] Comment on above: Performed By: #### T SH, CMP, LIPID, T7, URIC #### [facility] [address] [place] [address] Dr. Shabnam Rae Bilirubin [Mass/Vol] 0.8 mg/dL Normal 0.2-1.0 [facility] Comment on above: Performed By: #### T SH, CMP, LIPID, T7, URIC #### [facility] [address] [place] [address] Dr. Shabnam Rae Calcium [Mass/Vol] 9.5 mg/dL Normal 8.5-10.1 [facility] Comment on above: Performed By: #### T SH, CMP, LIPID, T7, URIC #### [facility] [address] [place] [address] Dr. Shabnam Rae Chloride [Moles/Vol] 102 mmol/L Normal 98-107 [facility] Comment on above: Performed By: #### T SH, CMP, LIPID, T7, URIC #### [facility] [address] [place] [address] Dr. Shabnam Rae CO2 [Moles/Vol] 32.4 mmol/L Critically high 21.0-32.0 [facility] Comment on above: Performed By: #### T SH, CMP, LIPID, T7, URIC #### [facility] [address] [place] [address] Dr. Shabnam Rae Creatinine [Mass/Vol] 1.00 mg/dL Normal 0.70-1.30 [facility] Comment on above: Performed By: #### T SH, CMP, LIPID, T7, URIC #### [facility] [address] [address] [address] Shabnam Rae EGFR-AF CHADIAN >60 Normal >=60 [facility] Comment on above: Performed By: #### T SH, CMP, LIPID, T7, URIC #### [facility] [address] [address] [address] Shabnam Rae EGFR-NON AF CHADIAN >60 Normal >=60 [facility] Comment on above: Performed By: #### T SH, CMP, LIPID, T7, URIC #### [facility] [address] [address] [address] Shabnam Rae Globulin (S) [Mass/Vol] 3.8 g/dL Normal [facility] Comment on above: Performed By: #### T SH, CMP, LIPID, T7, URIC #### [facility] [address] [place] [address] Dr. Shabnam Rae Glucose [Mass/Vol] 94 mg/dL Normal 74-106 [facility] Comment on above: Performed By: #### T SH, CMP, LIPID, T7, URIC #### [facility] [address] [address] [address] Shabnam Rae Potassium [Moles/Vol] 3.5 mmol/L Normal 3.5-5.1 [facility] Comment on above: Performed By: #### T SH, CMP, LIPID, T7, URIC #### [facility] [address] [place] [address] Dr. Shabnam Rae Protein [Mass/Vol] 7.9 g/dL Normal 6.4-8.2 [facility] Comment on above: Performed By: #### T SH, CMP, LIPID, T7, URIC #### [facility] [address] [address] [address] Shabnam Rae Sodium [Moles/Vol] 141 mmol/L Normal 136-145 [facility] Comment on above: Performed By: #### T SH, CMP, LIPID, T7, URIC #### [facility] [address] [address] [address] Shabnam Rae Urea nitrogen [Mass/Vol] 15.0 mg/dL Normal 7.0-18.0 [facility] Comment on above: Performed By: #### T SH, CMP, LIPID, T7, URIC #### [facility] [address] [place] [address] Dr. Shabnam Rae Urea nitrogen/Creatinine [Mass ratio] 15.0 mg/mg Normal [facility] Comment on above: Performed By: #### T SH, CMP, LIPID, T7, URIC #### [facility] [address] [place] [address] Dr. Shabnam Rae TSHon 12-01-2022 TSH 1.504 uIU/mL Normal 0.358-3.[address] [facility] Comment on above: Performed By: #### T SH, CMP, LIPID, T7, URIC #### [facility] [address] [place] [address] Dr. Shabnam Rae URIC ACID SERUMon 12-01-2022 Urate [Mass/Vol] 6.9 mg/dL Normal 3.5-7.2 [facility] Comment on above: Performed By: #### T SH, CMP, LIPID, T7, URIC #### [facility] [address] [place] [address] Dr. Shabnam Rae TESTOSTERONE, TOTALon 2021 Testosterone [Mass/Vol] 244 ng/dL Critically low 264-916 [facility] Comment on above: Result Comment: Adul t male reference interval is based on a population of healthy nonobese males (BMI <30) between 19 and 39 years old. Dima, et.al. JCEM 2017,102;8830-2635. PMID: [id number]. Performed By: #### P SAFREE #### [facility] [address] [place] [address] Dr. Shabnam Rae TESTOSTERONE, FREE,DIRECT, T OTALon 03-16-2022 Free Testosterone(Direct) 2.1 pg/mL Critically low 7.2-24.[address] [facility] Comment on above: Result Comment: Perf ormed at: BN Performed By: #### C VDTBH #### [facility] [address] [place] [address] Dr. Shabnam Rae Testosterone [Mass/Vol] 252 ng/dL Critically low 264-916 [facility] Comment on above: Result Comment: Adul t male reference interval is based on a population of healthy nonobese males (BMI <30) between 19 and 39 years old. adia Ch.al. JCEM 2017,102;9380-6394. PMID: [id number]. Performed at: CB Performed By: #### C [facility] #### [facility] [address] [address] [address] Shabnam Rae Formson 02-26-2022 Forms [id number] 7#1.00CD:127 Normal [facility] Screenson 02-26-2022 Screens [id number] 7#1.00CD:127 Normal [facility] Screens [id number] #1.00CD:127 Normal [facility] Urology Office/Clinic Noteon 02-26-2022 Urology Office/Clinic Note [...] qualifying data (more content not included)... Normal [facility] Comment on above: Result Comment: Elec tronically Signed By: Viola Grullon MD\.br\Date and Time Signed: 02/26/22 00:20 EDT\.br\Electronically Co-Signed By: Helen Leung\.br\Date and Time Co-Signed: 02/25/22 11:16 EDT Ambulatory Visit Summaryon 0 02-25-2022 Ambulatory Visit Summary MATTY GARCES :1970 Visit Date:02/25/2022 Ambulatory Visit Instructions Your Diagnosis Hydrocele Varicocele BPH without urinary obstruction Tests Performed Urnls Dip Stick Auto w/o Microscopy POC 69822 Your Care Team Attending Physician - Mitchel DELGADO, Viola Cohn Primary Care Physician - Mil DELGADO, Venus [...] Urnls Dip Stick Auto w/o Microscopy POC 48376 (02/25/2022) Bilirubin Urine Dipstick - Negative Blood Urine Dipstick - Negative Glucose Urine Dipstick - Negative Ketones Urine Dipstick - Negative Leukocytes Urine Dipstick - Negative Nitrite Urine Dipstick - Negative Protein Urine Dipstick - Negative Specific [place] Urine Dipstick - >=1.030 Urine Appearance Urine [...] the hydrocele for any changes. ? Take bymy-qpo-zdfhhrb and prescription medicines only as told by [...] intended t (more content not included)... Normal [facility] Patient Educationon 02-26-20 Patient Education Urology Hydrocele, [...] the hydrocele for any changes. ? Take hnhr-mvj-wljdeuh and prescription medicines only as told by [...] 02/17/2011 Document Revised: 09/10/2018 Document Reviewed: 09/10/2018 [employer] Patient Education ? 2019 [employer]. [facility] ED Note-Physicianon 05- ED Note-Physician [id number] 62#1.00CD:127 Normal [facility] RAD - Ultrasound Reporton RAD - Ultrasound Report [id number] #1.00CD:127 Normal [facility] RAD - CT Reporton 02-02-2022 RAD - CT Report [id number] 55#1.00CD:127 Normal [facility] RAD - CT Report [id number] 75#1.00CD:127 Normal [facility] CBC AUTO DIFFon 01-05-2022 BASO # 0.0 103/ul Normal 0.0-0.1 [facility] Comment on above: Performed By: #### P SAFREE #### [facility] [address] [place] [address] Dr. Shabnam Rae Basophils/100 WBC (Bld) 0.6 % Normal 0.2-2.0 [facility] Comment on above: Performed By: #### P SAFREE #### [facility] [address] [place] [address] Dr. Shabnam Rae EO # 0.1 103/ul Normal 0.0-0.7 [facility] [facility] Comment on above: Performed By: #### P SAFREE #### [facility] [address] [place] [address] Dr. Shabnam Rae Eosinophils/100 WBC (Bld) 2.1 % Normal 0.9-7.0 [facility] Comment on above: Performed By: #### P SAFREE #### [facility] [address] [place] [address] Dr. Shabnam Rae Erythrocyte distribution width (RBC) [Ratio] 13.1 % Normal 11.0-15.0 [facility] Comment on above: Performed By: #### P SAFREE #### [facility] [address] [place] [address] Dr. Shabnam Rae Hematocrit (Bld) [Volume fraction] 43.1 % Normal 42.0-54.0 [facility] Comment on above: Performed By: #### P SAFREE #### [facility] [address] [place] [address] Dr. Shabnam Rae Hemoglobin (Bld) [Mass/Vol] 13.7 g/dL Critically low 14.0-18.0 [facility] Comment on above: Performed By: #### P SAFREE #### [facility] [address] [place] [address] Dr. Shabnam Rae IG # 0.04 10e3/ul Critically high 0.00-0.03 [facility] Comment on above: Performed By: #### P SAFREE #### [facility] [address] [place] [address] Dr. Shabnam Rae IG % 0.6 % Critically high 0.0-0.5 [facility] Comment on above: Performed By: #### P SAFREE #### [facility] [address] [place] [address] Dr. Shabnam Rae LYMPH # 0.9 103/ul Critically low 1.2-3.8 [facility] Comment on above: Performed By: #### P SAFREE #### [facility] [address] [place] [address] Dr. Shabnam Rae Lymphocytes/100 WBC (Bld) 13.1 % Critically low 20.5-60.0 [facility] Comment on above: Performed By: #### P SAFREE #### [facility] [address] [place] [address] Dr. Shabnam Rae MANUAL DIFF REQ NO Normal [facility] Comment on above: Performed By: #### P SAFREE #### [facility] [address] [address] [address] Shabnam Rae MCH (RBC) [Entitic mass] 29.5 pg Normal 25.9-34.0 [facility] Comment on above: Performed By: #### P SAFREE #### [facility] [address] [place] [address] Dr. Shabnam Rae MCHC (RBC) [Mass/Vol] 31.8 g/dL Normal 29.9-35.2 [facility] Comment on above: Performed By: #### P SAFREE #### [facility] [address] [place] [address] Dr. Shabnam Rae MCV (RBC) [Entitic vol] 92.9 fL Normal 80.0-94.0 [facility] Comment on above: Performed By: #### P SAFREE #### [facility] [address] [place] [address] Dr. Shabnam Rae MONO # 0.4 103/ul Normal 0.3-0.8 [facility] Comment on above: Performed By: #### P SAFREE #### [facility] [address] [place] [address] Dr. Shabnam Rae Monocytes/100 WBC (Bld) 5.4 % Normal 1.7-12.0 [facility] Comment on above: Performed By: #### P SAFREE #### [facility] [address] [place] [address] Dr. Shabnam Rae NEUT # 5.2 103/ul Normal 1.4-6.5 [facility] Comment on above: Performed By: #### P SAFREE #### [facility] [address] [place] [address] Dr. Shabnam Rae Neutrophils/100 WBC (Bld) 78.2 % Critically high 43.0-75.0 [facility] Comment on above: Performed By: #### P SAFREE #### [facility] [address] [place] [address] Dr. Shabnam Rae Platelet mean volume (Bld) [Entitic vol] 10.9 fL Normal 9.5-13.5 [facility] Comment on above: Performed By: #### P SAFREE #### [facility] [address] [place] [address] Dr. Shabnam Rae PLT 153 103/ul Normal 150-450 [facility] Comment on above: Performed By: #### P SAFREE #### [facility] [address] [place] [address] Dr. Shabnam Rae RBC 4.64 106/ul Critically low 4.70-6.10 [facility] Comment on above: Performed By: #### P SAFREE #### [facility] [address] [address] [address] Shabnam Rae WBC 6.6 103/ul Normal 4.0-11.0 [facility] Comment on above: Performed By: #### P SAFREE #### [facility] [address] [address] [address] Shabnam Rae CRPon 01-05-2022 CRP 0.9 mg/dL Normal <=1.0 [facility] Comment on above: Performed By: #### P SAFREE #### [facility] [address] [address] [address] Shabnam Rae PROF 14(COMP METB)on 022 Albumin [Mass/Vol] 3.6 g/dL Normal 3.4-5.0 [facility] Comment on above: Performed By: #### P SAFREE #### [facility] [address] [place] [address] Dr. Shabnam Rae Albumin/Globulin [Mass ratio] 1.0 {ratio} Normal [facility] Comment on above: Performed By: #### P SAFREE #### [facility] [address] [address] [address] Shabnam Rae ALP [Catalytic activity/Vol] 114 U/L Normal 46-116 [facility] Comment on above: Performed By: #### P SAFREE #### [facility] [address] [address] [address] Shabnam Rae ALT [Catalytic activity/Vol] 26 U/L Normal 16-63 [facility] Comment on above: Performed By: #### P SAFREE #### [facility] [address] [place] [address] Dr. Shabnam Rae Anion gap [Moles/Vol] 9.3 mmol/L Normal [facility] Comment on above: Performed By: #### P SAFREE #### [facility] [address] [place] [address] Dr. Shabnam Rae AST [Catalytic activity/Vol] 19 U/L Normal 15-37 [facility] Comment on above: Performed By: #### P SAFREE #### [facility] [address] [address] [address] Shabnam Rae Bilirubin [Mass/Vol] 0.5 mg/dL Normal 0.2-1.0 [facility] Comment on above: Performed By: #### P SAFREE #### [facility] [address] [address] [address] Shabnam Rae Calcium [Mass/Vol] 8.9 mg/dL Normal 8.5-10.1 [facility] Comment on above: Performed By: #### P SAFREE #### [facility] [address] [place] [address] Dr. Shabnam Rae Chloride [Moles/Vol] 106 mmol/L Normal 98-107 [facility] Comment on above: Performed By: #### P SAFREE #### [facility] [address] [place] [address] Dr. Shabnam Rae CO2 [Moles/Vol] 30.7 mmol/L Normal 21.0-32.0 [facility] Comment on above: Performed By: #### P SAFREE #### [facility] [address] [place] [address] Dr. Shabnam Rae Creatinine [Mass/Vol] 1.15 mg/dL Normal 0.70-1.30 [facility] Comment on above: Performed By: #### P SAFREE #### [facility] [address] [place] [address] Dr. Shabnam Rae EGFR-AF CHADIAN >60 Normal >=60 [facility] Comment on above: Performed By: #### P SAFREE #### [facility] [address] [place] [address] Dr. Shabnam Rae EGFR-NON AF CHADIAN >60 Normal >=60 [facility] Comment on above: Performed By: #### P SAFREE #### [facility] [address] [place] [address] Dr. Shabnam Rae Globulin (S) [Mass/Vol] 3.6 g/dL Normal [facility] Comment on above: Performed By: #### P SAFREE #### [facility] [address] [address] [address] Shabnam Rae Glucose [Mass/Vol] 117 mg/dL Critically high 74-106 [facility] Comment on above: Performed By: #### P SAFREE #### [facility] [address] [address] [address] Shabnam Rae Potassium [Moles/Vol] 4.0 mmol/L Normal 3.5-5.1 [facility] Comment on above: Performed By: #### P SAFREE #### [facility] [address] [address] [address] Shabnam Rae Protein [Mass/Vol] 7.2 g/dL Normal 6.1-8.2 [facility] Comment on above: Performed By: #### P SAFREE #### [facility] [address] [place] [address] Dr. Shabnam Rae Sodium [Moles/Vol] 142 mmol/L Normal 136-145 [facility] Comment on above: Performed By: #### P SAFREE #### [facility] [address] [address] [address] Shabnam Rae Urea nitrogen [Mass/Vol] 15.0 mg/dL Normal 7.0-18.0 [facility] Comment on above: Performed By: #### P SAFREE #### [facility] [address] [address] [address] Shabnam Rae Urea nitrogen/Creatinine [Mass ratio] 13.0 mg/mg Normal [facility] Comment on above: Performed By: #### P SAFREE #### [facility] [address] [address] [address] Shabnam Rae US SCROTUMon 01-05-2022 US [...] ALVINA CAICEDO Date: 2022-01-05 08:48 Normal [facility] CBC AUTO DIFFon 01-04-2022 BASO # 0.1 103/ul Normal 0.0-0.1 [facility] Comment on above: Performed By: #### C BC #### [facility] [address] [place] [address] Dr. Shabnam Rae Basophils/100 WBC (Bld) 0.8 % Normal 0.2-2.0 [facility] Comment on above: Performed By: #### C BC #### [facility] [address] [place] [address] Dr. Shabnam Rae EO # 0.1 103/ul Normal 0.0-0.7 [facility] Comment on above: Performed By: #### C BC #### [facility] [address] [place] [address] Dr. Shabnam Rae Eosinophils/100 WBC (Bld) 1.5 % Normal 0.9-7.0 [facility] Comment on above: Performed By: #### C BC #### [facility] [address] [place] [address] Dr. Shabnam Rae Erythrocyte distribution width (RBC) [Ratio] 12.8 % Normal 11.0-15.0 [facility] Comment on above: Performed By: #### C BC #### [facility] [address] [place] [address] Dr. Shabnam Rae Hematocrit (Bld) [Volume fraction] 40.3 % Critically low 42.0-54.0 [facility] Comment on above: Performed By: #### C BC #### [facility] [address] [place] [address] Dr. Shabnam Rae Hemoglobin (Bld) [Mass/Vol] 13.4 g/dL Critically low 14.0-18.0 [facility] Comment on above: Performed By: #### C BC #### [facility] [address] [place] [address] Dr. Shabnam Rae IG # 0.03 10e3/ul Normal 0.00-0.03 [facility] Comment on above: Performed By: #### C BC #### [facility] [address] [place] [address] Dr. Shabnam Rae IG % 0.5 % Normal 0.0-0.5 [facility] Comment on above: Performed By: #### C BC #### [facility] [address] [place] [address] Dr. Shabnam Rae LYMPH # 1.0 103/ul Critically low 1.2-3.8 [facility] Comment on above: Performed By: #### C BC #### [facility] [address] [place] [address] Dr. Shabnam Rae Lymphocytes/100 WBC (Bld) 16.4 % Critically low 20.5-60.0 [facility] Comment on above: Performed By: #### C BC #### [facility] [address] [place] [address] Dr. Shabnam Rae MANUAL DIFF REQ NO Normal [facility] Comment on above: Performed By: #### C BC #### [facility] [address] [place] [address] Dr. Shabnam Rae MCH (RBC) [Entitic mass] 29.5 pg Normal 25.9-34.0 [facility] Comment on above: Performed By: #### C BC #### [facility] [address] [address] [address] Shabnam Rae MCHC (RBC) [Mass/Vol] 33.3 g/dL Normal 29.9-35.2 [facility] Comment on above: Performed By: #### C BC #### [facility] [address] [place] [address] Dr. Shabnam Rae MCV (RBC) [Entitic vol] 88.8 fL Normal 80.0-94.0 [facility] Comment on above: Performed By: #### C BC #### [facility] [address] [place] [address] Dr. Shabnam Rae MONO # 0.6 103/ul Normal 0.3-0.8 [facility] Comment on above: Performed By: #### C BC #### [facility] [address] [place] [address] Dr. Shabnam Rae Monocytes/100 WBC (Bld) 9.6 % Normal 1.7-12.0 [facility] Comment on above: Performed By: #### C BC #### [facility] [address] [place] [address] Dr. Shabnam Rae NEUT # 4.4 103/ul Normal 1.4-6.5 [facility] Comment on above: Performed By: #### C BC #### [facility] [address] [place] [address] Dr. Shabnam Rae Neutrophils/100 WBC (Bld) 71.2 % Normal 43.0-75.0 [facility] Comment on above: Performed By: #### C BC #### [facility] [address] [place] [address] Dr. Shabnam Rae Platelet mean volume (Bld) [Entitic vol] 10.8 fL Normal 9.5-13.5 [facility] Comment on above: Performed By: #### C BC #### [facility] [address] [place] [address] Dr. Shabnam Rae PLT 158 103/ul Normal 150-450 [facility] Comment on above: Performed By: #### C BC #### [facility] [address] [place], [place] [address] Dr[address] Shabnam Rae RBC 4.54 106/ul Critically low 4.70-6.[address] [facility] Comment on above: Performed By: #### C BC #### [facility] [address] [place], [place] [address] Dr. Shabnam Rae WBC 6.2 103/ul Normal 4.0-11.0 [facility] Comment on above: Performed By: #### C BC #### [facility] [address] [place], [place] [address] ABD/PELV W CONon [...] MAYRA BERNAL Date: 2022-01-04 05:19 Normal [facility] CT PELVIS WO CONon CT PELVIS [...] MANUEL HOUGH Date: 2022-01-04 08:54 Normal [facility] CULTURE URINEon 01-04-2022 CULTURE URINE Culture Observations: No growth Normal [facility] Comment on above: Performed By: #### P [facility] #### [facility] [address] [place] [address] [address] [address] Shabnam Rae Covid-19 PCR (CVDTB)on 12-13 SARS-CoV-2 (COVID-19) RNA ELIJAH+probe Ql (Unsp spec) Not detected Normal NOT DETECTED [facility] Comment on above: Result Comment: When diagnostic testing is negative, the possibility of a false negative should be considered in the context of a patient's recent exposures and the presence of clinical signs and symptoms consistent with SARS-CoV-2. This test is not yet approved or cleared by the [place] Food and Drug Administration (FDA). This test was developed by [employer], [place], [place]. The performance characteristics of this test were validated by [facility]. The results are not intended to be used as the sole means for clinical diagnosis or patient management decisions. [facility] is authorized under Clinical Laboratory Improvement [...] for this test is supported by the [place] of Health and Human Service's declaration that [...] used). Performed By: #### C VDTBH #### [facility] [address] [place] [address] [address] [address] Shabnam Rae ER URINE PROFILEon Bilirubin Ql (U) Negative Normal NEGATIVE [facility] Comment on above: Performed By: #### P SASC #### [facility] [address] [place] [address] [address] [address] Shabnam Rae Clarity (U) CLEAR Normal CLEAR [facility] Comment on above: Performed By: #### P SASC #### [facility] [address] [place] [address] Dr. Shabnam Rae Color (U) YELLOW Normal YELLOW [facility] Comment on above: Performed By: #### P SASC #### [facility] [address] [place] [address] Dr. Shabnam HERNANDEZ A micrscopic examination will be performed if indicated. Normal [facility] Comment on above: Performed By: #### P SASC #### [facility] [address] [place] [address] Dr. Shabnam Rae Glucose Ql (U) Negative Normal NEGATIVE [facility] Comment on above: Performed By: #### P SASC #### [facility] [address] [place] [address] Dr. Shabnam Rae Hemoglobin Ql (U) Negative Normal NEGATIVE [facility] Comment on above: Performed By: #### P SASC #### [facility] [address] [place] [address] Dr. Shabnam Rae Ketones Ql (U) Negative Normal NEGATIVE [facility] Comment on above: Performed By: #### P SASC #### [facility] [address] [place] [address] Dr. Shabnam Rae LEUKOCYTES Negative Normal NEGATIVE [facility] Comment on above: Performed By: #### P SASC #### [facility] [address] [place] [address] Dr. Shabnam Rae Nitrite Ql (U) Negative Normal NEGATIVE [facility] Comment on above: Performed By: #### P SASC #### [facility] [address] [place] [address] Dr. Shabnam Rae pH (U) 6.5 [pH] Normal 5-9 [facility] Comment on above: Performed By: #### P SASC #### [facility] [address] [place] [address] Dr. Shabnam Rae SPEC GRAVITY 1.010 Normal 1.005-<=1.025 [facility] Comment on above: Performed By: #### P SASC #### [facility] [address] [place] [address] Dr. Shabnam Rae UA PROTEIN Negative Normal NEGATIVE/ TRACE [facility] Comment on above: Performed By: #### P SASC #### [facility] [address] [address] [address] Shabnam Rae UR MICRO IND NOT INDICATED Normal [facility] Comment on above: Performed By: #### P SASC #### [facility] [address] [address] [address] Shabnam Rae Urobilinogen Qn (U) 0.2 {Sarai'U}/dL Normal 0.2 - 1. 0 [facility] Comment on above: Performed By: #### P SASC #### [facility] [address] [address] [address] Shabnam Rae LACTATE/LACTIC ACIDon 2021 Lactate [Moles/Vol] 1.0 mmol/L Normal 0.4-2.0 [facility] Comment on above: Performed By: #### P SASC #### [facility] [address] [place] [address] Dr. Shabnam Rae PROF CHEM 8 (BAS METB)on Anion gap [Moles/Vol] 10.0 mmol/L Normal [facility] Comment on above: Performed By: #### B MP #### [facility] [address] [place] [address] Dr. Shabnam Rae Calcium [Mass/Vol] 8.5 mg/dL Normal 8.5-10.1 [facility] Comment on above: Performed By: #### B MP #### [facility] [address] [place] [address] Dr. Shabnam Rae Chloride [Moles/Vol] 103 mmol/L Normal 98-107 [facility] Comment on above: Performed By: #### B MP #### [facility] [address] [place] [address] Dr. Shabnam Rae CO2 [Moles/Vol] 29.2 mmol/L Normal 21.0-32.0 [facility] Comment on above: Performed By: #### B MP #### [facility] [address] [place], [place] [id number] Dr. Shabnam Rae Creatinine [Mass/Vol] 1.25 mg/dL Normal 0.70-1.30 [facility] Comment on above: Performed By: #### B MP #### [facility] [address] [place] [address] Dr. Shabnam Rae EGFR-AF CHADIAN >60 Normal >=60 [facility] Comment on above: Performed By: #### B MP #### [facility] [address] [address] [address] Shabnam Rae EGFR-NON AF CHADIAN >60 Normal >=60 [facility] Comment on above: Performed By: #### B MP #### [facility] [address] [place] [address] Dr. Shabnam Rae Glucose [Mass/Vol] 132 mg/dL Critically high 74-106 [facility] Comment on above: Performed By: #### B MP #### [facility] [address] [place] [address] Dr. Shabnam Rae Potassium [Moles/Vol] 3.2 mmol/L Critically low 3.5-5.1 [facility] Comment on above: Performed By: #### B MP #### [facility] [address] [place] [address] Dr. Shabnam Rae Sodium [Moles/Vol] 139 mmol/L Normal 136-145 [facility] Comment on above: Performed By: #### B MP #### [facility] [address] [place] [address] Dr. Shabnam Rae Urea nitrogen [Mass/Vol] 19.0 mg/dL Critically high 7.0-18.0 [facility] Comment on above: Performed By: #### B MP #### [facility] [address] [place] [address] Dr. Shabnam Rae Urea nitrogen/Creatinine [Mass ratio] 15.2 mg/mg Normal [facility] Comment on above: Performed By: #### B MP #### [facility] [address] [place] [address] Dr. Shabnam Rae CERVICAL SPINE 2 OR 3 VWSon 07-06-2019 CERVICAL SPINE 2 OR 3 VWS [facility] Department of Radiology [address] [place] [address] Patient Name: MATTY GARCES : 1970 Sex: M Age: Race: White Pt. Location: Patient Status: O Ordered Date: 07/06/2019 9:10:00 AM Completed Date: 07/06/2019 09:21 AM Requesting Provider: LUCIANO VIEIRA Attending Provider: LUCIANO VIEIRA Report Copy To: VENUS MENDEZ Signs & Symptoms: M48.02 Spinal stenosis, cervical region I10 History: [place] Comments: , STAT READ , STAT READ , , , Ordering Provider - LUCIANO VIEIRA MD , Exam: CERVICAL SPINE 2 OR 3 [facility] CERVICAL SPINE 2 OR 3 S [...] findings. Electronically signed by:Bernice Hoyt. Transcribed by: [email or web address], User Resident: RADHA CHIN Electronically Signed by: BERNICE HOYT @ 07/06/2019 08:52 PM I personally read this/these film(s) with this resident Normal [facility] Comment on above: Order Comment: , STA T READ , STAT READ , , , Ordering Provider - LUCIANO VIEIRA MD , CERVICAL SPINE 2 OR 3 [facility] 04-06-2019 CERVICAL SPINE 2 OR [address] [facility] Department of Radiology [address] [place] [id number] Patient Name: MATTY GARCES : 1970 [...] FALLS Exam: CERVICAL SPINE 2 OR 3 VWS CERVICAL SPINE 2 OR 3 VWS 04/06/2019 7:28 AM EDT SIGNS AND SYMPTOMS: [...] similar to prior study. Electronically signed by:Bernice Hoty. Transcribed by: [email or web address], User Resident: Electronically Signed by: BERNICE HOYT @ 04/06/2019 04:40 PM Normal [facility] Comment on above: Order Comment: AP/LA T, ODONTOID PLEASE DO SWIMMER'S VIEW FOLLOW UP HARDWARE AND ALIGNMENT, S/P ACDF, RECENT FALLS CERVICAL SPINE 2 OR 3 VWSon 02-17-2019 CERVICAL SPINE 2 OR 3 S [facility] Department of Radiology [address] [place] [id number] Patient Name: MATTY GARCES : 1970 Sex: [...] findings. Electronically signed by:Bella King. Transcribed by: [email or web address], User Resident: EMILE TINAJERO Electronically Signed by: BELLA KING @ 02/20/2019 11:53 AM I personally read this/these film(s) with this resident Normal [facility] Comment on above: Order Comment: C-SPI NE 2 OR 3 VIEW POSTOP, EVALUATION HARDWARE AN ALIGNMENT BASIC METABOLIC PANELon 05- Calcium [Mass/Vol] 9.2 mg/dL Normal 8.6-10.3 [facility] Comment on above: Order Comment: No: D o not add to previous draw Performed By: #### 5 0103 #### [facility] [address] [place] [address], [place] Chloride [Moles/Vol] 101 mmol/L Normal 98-107 [facility] Comment on above: Order Comment: No: D o not add to previous draw Performed By: #### 5 0103 #### [facility] [address] [place] [address], [place] CO2 [Moles/Vol] 26 mmol/L Normal 21-31 [facility] Comment on above: Order Comment: No: D o not add to previous draw Performed By: #### 5 0103 #### [facility] [address] [place] [address], [place] Creatinine [Mass/Vol] 1.02 mg/dL Normal 0.70-1.30 [facility] Comment on above: Order Comment: No: D o not add to previous draw Performed By: #### 5 0103 #### [facility] [address] [place] [address], [place] GFR/1.73 sq M predicted among blacks MDRD (S/P/Bld) [Vol rate/Area] mL/min/{1.73_m2} Normal >60 [facility] Comment on above: Order Comment: No: D o not add to previous draw Performed By: #### 5 0103 #### [facility] [address] [place] [address], [place] GFR/1.73 sq M predicted among non-blacks MDRD (S/P/Bld) [Vol rate/Area] mL/min/{1.73_m2} Normal >60 [facility] Comment on above: Order Comment: No: D o not add to previous draw Performed By: #### 5 0103 #### [facility] [address] [place] [address], [place] Glucose [Mass/Vol] 124 mg/dL High 70-100 The [facility] Comment on above: Order Comment: No: D o not add to previous draw Performed By: #### 5 0103 #### [facility] [address] [place] [address], [place] Potassium [Moles/Vol] 3.9 mmol/L Normal 3.5-5.1 [facility] Comment on above: Order Comment: No: D o not add to previous draw Performed By: #### 5 0103 #### [facility] [address] [place] [address], [place] Sodium [Moles/Vol] 137 mmol/L Normal 136-145 The [facility] Comment on above: Order Comment: No: D o not add to previous draw Performed By: #### 5 0103 #### [facility] [address] [place] [address], [place] Urea nitrogen [Mass/Vol] 15 mg/dL Normal 7-25 [facility] Comment on above: Order Comment: No: D o not add to previous draw Performed By: #### 5 0103 #### [facility] [address] [place] [address], [place] CBC COMPLETE BLOOD COUNTon 0 - Erythrocyte distribution width (RBC) [Ratio] 13.9 % Normal 11.5-15.0 [facility] Comment on above: Order Comment: No: D o not add to previous draw Performed By: #### 5 0103 #### [facility] [address] [place] [address], [facility] Hematocrit (Bld) [Volume fraction] 50.0 % Normal 39.0-50.0 [facility] Comment on above: Order Comment: No: D o not add to previous draw Performed By: #### 5 0103 #### [facility] [address] [place] [address], [facility] Hemoglobin (Bld) [Mass/Vol] 16.0 g/dL Normal 13.0-17.0 [facility] Comment on above: Order Comment: No: D o not add to previous draw Performed By: #### 5 0103 #### [facility] [address] [place] [address], [facility] MCH (RBC) [Entitic mass] 27.5 pg Normal 27.0-33.0 [facility] Comment on above: Order Comment: No: D o not add to previous draw Performed By: #### 5 0103 #### [facility] [address] [facility] [place] [address], [facility] MCHC (RBC) [Mass/Vol] 32.0 g/dL Normal 32.0-35.0 [facility] Comment on above: Order Comment: No: D o not add to previous draw Performed By: #### 5 0103 #### [facility] [address] [place] [address], [facility] MCV (RBC) [Entitic vol] 85.9 fL Normal 82.0-98.0 [facility] Comment on above: Order Comment: No: D o not add to previous draw Performed By: #### 5 0103 #### [facility] [address] [place] [address], [facility] Nucleated RBC/100 WBC (Bld) [Ratio] 0 % Normal 0-0 [facility] Comment on above: Order Comment: No: D o not add to previous draw Performed By: #### 5 0103 #### [facility] [address] [place] [address], [facility] PLAT CNT 249 10*3/uL Normal 150-400 The [facility] Comment on above: Order Comment: No: D o not add to previous draw Performed By: #### 5 0103 #### [facility] [address] [place] [address], [facility] RBC (Bld) [#/Vol] 5.82 10*6/uL High 4.20-5.70 The [facility] Comment on above: Order Comment: No: D o not add to previous draw Performed By: #### 5 0103 #### [facility] [address] [place] [address], [facility] WBC (Bld) [#/Vol] 15.85 10*3/uL High 4.00-10.60 [facility] Comment on above: Order Comment: No: D o not add to previous draw Performed By: #### 5 0103 #### [facility] [address] Operative Reporton 9 Operative Report MR#: [id number] I [facility] Pt. Name: Matty Garces Room #: [id number] Discharge Date: Birthdate: 1970 OPERATIVE REPORT DATE OF SURGERY: 01/30/2019 SURGEON: Luciano Vieira M.D. 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 POSTOPERATIVE DIAGNOSIS: Failed instrumentation at C6-7 on the right. CASINO GAMING INSPECTOR: ADENIKE Lugo. ANESTHESIA: Endotracheal, Hogan. PROCEDURES: Redo [...] by: Luciano Vieira M.D. 02/02/2019 04:44 P Luicano Vieira M.D. Date Dict: 01/30/2019/04:52 P/Luciano Vieira M.D. Date Trans: 01/31/2019 02:31 A/mmo [id number] cc: Venus Mendez M.D. [address], [place] [address] Normal [facility] CERVICAL SPINE 2 OR 3 VWSon 01-30-2019 CERVICAL SPINE 2 OR 3 VWS [facility] Department of Radiology [address] [place] [address] Patient Name: MATTY GARCES : 1970 Sex: M Age: Race: White Pt. Location: Patient Status: O Ordered Date: 01/30/2019 7:05:00 AM Completed Date: 01/30/2019 04:12 PM Requesting Provider: LUCIANO VIEIRA Attending Provider: LUCIANO VIEIRA Report Copy To: Signs & Symptoms: C6-7 ACDF History: C6-7 ACDF Comments: C6-7 ACDF Exam: CERVICAL SPINE 2 OR 3 VWS CERVICAL SPINE 2 OR 3 VWS 01/30/2019 4:12 PM EDT SIGNS AND SYMPTOMS: C6-7 ACDF TECHNOLOGIST COMMENTS: Intra op ACDF C6-7 with , 30 sec of fluoro time used QUESTION FOR THE RADIOLOGIST: C6-7 ACDF PROTOCOLS: AP, Odontoid and Lateral views were obtained. COMPARISON: None FINDINGS: 5 images were obtained. Fluoroscopic time as utilized above. IMPRESSION: For documentation Electronically signed by:Justus Montano. Transcribed by: [email or web address], User Resident: Electronically Signed by: JUSTUS MONTANO @ 01/30/2019 04:18 PM Normal [facility] Comment on above: Order Comment: C6-7 ACDF POC GLUCOSE LABon 01-30-2019 Glucose [Mass/Vol] 106 mg/dL High 70-100 The [facility] Comment on above: Performed By: #### 5 0103 #### [facility] [address] *MRSA/MSSA DNA NASALon 01-23 *MRSA/MSSA DNA NASAL Clinical Report: (D ) Specimen: NASAL SWAB Collected: 01/23/2019 15:02 Status: Final Last Updated: 01/23/2019 20:14 MSSA DNA (Final) Methicillin Susceptible Staphylococcus aureus DNA Detected MRSA DNA (Final) No Methicillin Resistant Staphylococcus aureus DNA Detected Normal [facility] Comment on above: Performed By: #### 5 0103 #### [facility] [address] [place] [address], [facility] APTTon 01-23-2019 aPTT Coag (Bld) [Time] 35.4 [...] THIS PURPOSE. Performed By: #### 5 7307, 11661 #### [facility] [address] [place] [address], [facility] BASIC METABOLIC PANELon 01-11 Calcium [Mass/Vol] 9.5 mg/dL Normal 8.6-10.3 The [facility] Comment on above: Performed By: #### 5 7307, 59822 #### [facility] [address] [place] [address], [place] Chloride [Moles/Vol] 101 mmol/L Normal 98-107 [facility] Comment on above: Performed By: #### 5 7307, 56876 #### [facility] [address] [place] [address], [place] CO2 [Moles/Vol] 29 mmol/L Normal 21-31 [facility] Comment on above: Performed By: #### 5 7307, 35288 #### [facility] [address] [place] [address], [place] Creatinine [Mass/Vol] 1.08 mg/dL Normal 0.70-1.30 [facility] Comment on above: Performed By: #### 5 73, 08790 #### [facility] [address] [place] [address], [place] GFR/1.73 sq M predicted among blacks MDRD (S/P/Bld) [Vol rate/Area] mL/min/{1.73_m2} Normal >60 [facility] Comment on above: Performed By: #### 5 73, 62352 #### [facility] [address] [place] [address], [place] GFR/1.73 sq M predicted among non-blacks MDRD (S/P/Bld) [Vol rate/Area] mL/min/{1.73_m2} Normal >60 [facility] Comment on above: Performed By: #### 5 73, 01721 #### [facility] [address] [place] [address], [place] Glucose [Mass/Vol] 87 mg/dL Normal 70-100 [facility] Comment on above: Performed By: #### 5 7307, 97348 #### [facility] [address] [place] [address], [place] Potassium [Moles/Vol] 4.0 mmol/L Normal 3.5-5.1 [facility] Comment on above: Performed By: #### 5 73, 90870 #### [facility] [address] [place] [address], [facility] Sodium [Moles/Vol] 137 mmol/L Normal 136-145 The [facility] Comment on above: Performed By: #### 5 7306, 58331 #### [facility] [address] [facility] [address] Urea nitrogen [Mass/Vol] 12 mg/dL Normal 7-25 [facility] Comment on above: Performed By: #### 5 7306, 07939 #### [facility] [address] [place] [address], [facility] CBC W/DIFFon 01-23-2019 ABS BASOPHILS 0.1 10*3/uL Normal 0.0-0.2 The [facility] Comment on above: Performed By: #### 5 73Al, 94583 #### [facility] [address] [facility]. [address] ABS IMM GRANS 0.0 10*3/uL Normal 0.0-0.2 The [facility] Comment on above: Performed By: #### 5 7307, 36347 #### [facility] [address] [facility]. [address] ABS NEUTROPHILS 5.3 10*3/uL Normal 1.6-7.6 [facility] Comment on above: Performed By: #### 5 73, 60719 #### [facility] [address] [place] [address], [facility] Basophils/100 WBC (Bld) 0.9 % Normal 0.0-1.0 [facility] Comment on above: Performed By: #### 5 73, 37865 #### [facility] [address] [place] [address], [facility] Eosinophils (Bld) [#/Vol] 0.2 10*3/uL Normal 0.0-0.5 [facility] Comment on above: Performed By: #### 5 7306, 15393 #### [facility] [address] [place] [address], [facility] Eosinophils/100 WBC (Bld) 2.3 % Normal 0.0-6.0 [facility] Comment on above: Performed By: #### 5 7306, 51135 #### [facility] [address] Erythrocyte distribution width (RBC) [Ratio] 13.8 % Normal 11.5-15.0 [facility] Comment on above: Performed By: #### 5 7306, 97932 #### [facility] [address] [place] [address], [facility] Hematocrit (Bld) [Volume fraction] 49.6 % Normal 39.0-50.0 [facility] Comment on above: Performed By: #### 5 7306, 99986 #### [facility] [address] [place] [address], [facility] Hemoglobin (Bld) [Mass/Vol] 16.4 g/dL Normal 13.0-17.0 [facility] Comment on above: Performed By: #### 5 7306, 48169 #### [facility] [address] [place] [address], [facility] IMMATURE GRANS 0.5 % Normal 0.0-1.0 The [facility] Comment on above: Performed By: #### 5 7306, 96901 #### [facility] [address] [place] [address], [facility] Lymphocytes (Bld) [#/Vol] 1.2 10*3/uL Normal 1.2-4.0 [facility] Comment on above: Performed By: #### 5 7306, 70243 #### [facility] [address] [place] [address], [facility] Lymphocytes/100 WBC (Bld) 16.6 % Low 20.0-45.0 [facility] Comment on above: Performed By: #### 5 7306, 81543 #### [facility] [address] [facility] [address] MCH (RBC) [Entitic mass] 27.8 pg Normal 27.0-33.0 [facility] Comment on above: Performed By: #### 7306, 37536 #### [facility] [address] [facility] [address] MCHC (RBC) [Mass/Vol] 33.1 g/dL Normal 32.0-35.0 [facility] Comment on above: Performed By: #### 5 7306, 41839 #### [facility] [address] [facility] [address] MCV (RBC) [Entitic vol] 84.2 fL Normal 82.0-98.0 [facility] Comment on above: Performed By: #### 7306, 90336 #### [facility] [address] [facility]. [address] Monocytes (Bld) [#/Vol] 0.7 10*3/uL Normal 0.1-1.0 [facility] Comment on above: Performed By: #### 7306, 55054 #### [facility] [address] [facility] [address] MONOS 9.4 % Normal 5.0-12.0 [facility] Comment on above: Performed By: #### 7306, 32689 #### [facility] [address] [facility] [address] Neutrophils/100 WBC (Bld) 70.3 % Normal 40.0-72.0 [facility] Comment on above: Performed By: #### 7306, 78549 #### [facility] [address] Nucleated RBC/100 WBC (Bld) [Ratio] 0 % Normal 0-0 [facility] Comment on above: Performed By: #### 5 7307, 99206 #### [facility] [address] [place] [address], [facility] PLAT CNT 235 10*3/uL Normal 150-400 The [facility] Comment on above: Performed By: #### 5 7307, 91842 #### [facility] [address] RBC (Bld) [#/Vol] 5.89 10*6/uL High 4.20-5.70 [facility] Comment on above: Performed By: #### 5 7307, 95613 #### [facility] [address] [place] [address], [facility] WBC (Bld) [#/Vol] 7.48 10*3/uL Normal 4.00-10.60 [facility] Comment on above: Performed By: #### 5 7307, 45863 #### [facility] [address] PROTHROMBIN TIMEon 9 INR Coag (PPP) [...] CHEST 1995;108:231S-246S. Performed By: #### 5 7307, 19971 #### [facility] [address] [facility] [address] PT Coag (PPP) [Time] 14.4 s Normal 12.3-14.8 [facility] Comment on above: Result Comment: ALL RESULTS MUST BE INTERPRETED WITH RESPECT TO BLOOD DRAWING ARTIFACT OR DILUTION ERROR OF ANTICOAGULANT AT THE TIME OF SAMPLING. Performed By: #### 5 7307, 52568 #### [facility] [address] [facility]. [address] TYPE AND SCREENon 01-23-2019 ABO INTERPRETATION A Normal [facility] Comment on above: Performed By: #### 5 7307, 48803 #### [facility] [address] [facility]. [address] RH INTERPRETATION Positive Normal The [facility] Comment on above: Performed By: #### 5 7307, 09830 #### [facility] [address] [facility] 3D CERVICAL SPINE WO CONT RASTon 01-12-2019 CT 3D CERVICAL SPINE WO CONTRAST [facility] Department of Radiology [address] [place] [phone] Patient Name: MATTY GARCES : 1970 Sex: M Age: Race: White Pt. Location: 85 Patient Status: D Ordered Date: 01/10/2019 2:15:00 PM Completed Date: 01/12/2019 10:32 AM Requesting Provider: LUCIANO VIEIRA Attending Provider: LUCIANO VIEIRA Report Copy To: VENUS MENDEZ Signs & Symptoms: M48.02 Spinal stenosis, cervical region I10 History: Althea para auth # [id number] 01/10/19-02/09/19 [id number] *er Comments: Exam: CT 3D CERVICAL SPINE [...] incomplete Electronically signed by:Ten Garland. Transcribed by: [email or web address], User Resident: Electronically Signed by: TEN GARLAND @ 01/13/2019 09:18 AM [place] [facility] CERVICAL SPINE 2 OR 3 [facility] 01-05-2019 CERVICAL SPINE 2 OR [address] [facility] Department of Radiology [address] [place] [phone] Patient Name: MATTY GARCES : 1970 [...] , Exam: CERVICAL SPINE 2 OR 3 [facility] CERVICAL SPINE 2 OR 3 [facility] 01/05/2019 9:06 AM EDT SIGNS AND [...] findings. Electronically signed by:Ten Garland. Transcribed by: [email or web address], User Resident: SHELLY DELA CRUZ Electronically Signed by: TEN GARLAND @ 01/05/2019 12:37 PM I personally read this/these film(s) with this resident Normal [facility] Comment on above: Order Comment: , , = ========= , Ordering Provider - LUCIANO VIEIRA MD , CERVICAL SPINE 2 OR 3 [facility] 08-30-2018 CERVICAL SPINE 2 OR [address] [facility] Department of Radiology [address] [place] [phone] Patient Name: MATTY GARCES : 1970 [...] Head on 08/30/2018 2:29 PM EST. I, Blanco Eli, have reviewed the images and report and concur with these findings. Electronically signed by:Bella King. Transcribed by: [email or web address], User Resident: RYAN HAED Electronically Signed by: BELLA KING @ 08/30/2018 [...] Pt. Name: Matty Garces Room #: [id number] Discharge Date: Birthdate: 1970 OPERATIVE REPORT DATE OF SURGERY: 08/17/2018 SURGEON: Luciano Vieira M.D. PREOPERATIVE DIAGNOSIS: Herniated cervical disk at C6-7. POSTOPERATIVE DIAGNOSIS: Herniated cervical disk at C6-7. CASINO GAMING INSPECTOR: ADENIKE Larios. ANESTHESIA: Endotracheal, Braida. PROCEDURE: Anterior [...] Vieira M.D. Date Trans: 08/17/2018 11:25 P/sasha [id number] cc: Venus Mendez M.D. [address], [facility] [id number] [facility] CERVICAL SPINE 2 OR 3 VWSon 08-17-2018 CERVICAL SPINE 2 OR 3 S [facility] Department of Radiology [address] [place] [address] Patient Name: MATTY GARCES : 1970 Sex: M Age: Race: White Pt. Location: Patient Status: I Ordered Date: 08/17/2018 8:30:00 AM Completed Date: 08/17/2018 11:49 AM Requesting Provider: LUCIANO VIEIRA Attending Provider: LUCIANO VIEIRA Report Copy To: Signs & Symptoms: C6-7 ACDF with History: C6-7 ACDF with Comments: C6-7 ACDF with Exam: CERVICAL SPINE 2 OR 3 [facility] CERVICAL SPINE 2 OR 3 [facility] 08/17/2018 11:49 AM EST SIGNS AND [...] findings. Electronically signed by:Bernice Hoyt. Transcribed by: [email or web address], User Resident: EMILE TINAJERO Electronically Signed by: BERNICE HOYT @ 08/18/2018 01:06 PM I personally read this/these film(s) with this resident Normal The [facility] Comment on above: Order Comment: C6-7 ACDF with POC GLUCOSE LABon 08-17-2018 Glucose [Mass/Vol] 113 mg/dL High 70-100 The [facility] Comment on above: Performed By: #### 8 5499 #### [facility] [address] [place] [address], [facility] RBC'S 2 UNITSon 08-17-2018 CROSSMATCH INTERP 1 COMP Normal [facility] Comment on above: Performed By: #### 8 6002 #### [facility] [address] [place] [address], [facility] CROSSMATCH INTERP 2 COMP Normal [facility] Comment on above: Performed By: #### 8 6002 #### [facility] [address] [facility] [place] [address], [facility] PRODUCT CODE 1 E0336 Normal The [facility] Comment on above: Performed By: #### 8 6002 #### [facility] [address] [place] [address], [facility] PRODUCT CODE 2 E0336 Normal The [facility] Comment on above: Performed By: #### 8 6002 #### [facility] [address] [place] [address], [facility] PRODUCT STATUS 1 RE Normal The [facility] Comment on above: Result Comment: Resu lt changed by IF on 08/20/2018 07:48. The previous value was XM. Performed By: #### 8 6002 #### [facility] [address] [place] [address], [facility] PRODUCT STATUS 2 RE Normal [facility] Comment on above: Result Comment: Resu lt changed by IF on 08/20/2018 07:48. The previous value was XM. Performed By: #### 8 6002 #### [facility] [address] [place] [address], [facility] UNIT ABO 1 A Normal [facility] Comment on above: Performed By: #### 8 6002 #### [facility] [address] [place] [address], [facility] UNIT ABO 2 A Normal [facility] Comment on above: Performed By: #### 8 6002 #### [facility] [address] [place] [address], [facility] UNIT ID 1 [id number] Normal [facility] Comment on above: Performed By: #### 8 6002 #### [facility] [address] [place] [address], [facility] UNIT ID 2 [id number] Normal [facility] Comment on above: Performed By: #### 8 6002 #### [facility] [address] [place] [address], [facility] UNIT RH 1 Positive Normal [facility] Comment on above: Performed By: #### 8 6002 #### [facility] [address] [place] [address], [facility] UNIT RH 2 Positive Normal [facility] Comment on above: Performed By: #### 8 6002 #### [facility] [address] [place] [address], [facility] *MRSA/MSSA CULTUREon 018 *MRSA/MSSA CULTURE Clinical Report: (D) Specimen: NASAL SWAB Collected: 08/02/2018 12:37 Status: Final Last Updated: 08/03/2018 14:26 ISO (Final) No Methicillin Resistant Staphylococcus aureus Isolated (MRSA) ISO (Final) Methicillin Sensitive Staphylococcus aureus (MSSA) Isolated Normal [facility] Comment on above: Performed By: #### 3 1302 #### [facility] [address] [facility] APTTon 08-02-2018 aPTT Coag (Bld) [Time] [...] THIS PURPOSE. Performed By: #### 5 [id number], [id number] #### [facility] [address] BASIC METABOLIC PANELon 11- Calcium [Mass/Vol] 9.4 mg/dL Normal 8.6-10.3 [facility] Comment on above: Performed By: #### 0 0071 #### [facility] [address] [place] [address], [facility] Chloride [Moles/Vol] 103 mmol/L Normal 98-107 [facility] Comment on above: Performed By: #### 0 0071 #### [facility] [address] [place] [address], [facility] CO2 [Moles/Vol] 29 mmol/L Normal 21-31 [facility] Comment on above: Performed By: #### 0 0071 #### [facility] [address] [facility] [place] [address], [facility] Creatinine [Mass/Vol] 1.06 mg/dL Normal 0.70-1.30 [facility] Comment on above: Performed By: #### 0 0071 #### [facility] [address] [place] [address], [place] GFR/1.73 sq M predicted among blacks MDRD (S/P/Bld) [Vol rate/Area] mL/min/{1.73_m2} Normal >60 [facility] Comment on above: Performed By: #### 0 0071 #### [facility] [address] [place] [address], [place] GFR/1.73 sq M predicted among non-blacks MDRD (S/P/Bld) [Vol rate/Area] mL/min/{1.73_m2} Normal >60 [facility] Comment on above: Performed By: #### 0 0071 #### [facility] [address] [place] [address], [place] Glucose [Mass/Vol] 84 mg/dL Normal 70-100 The [facility] Comment on above: Performed By: #### 0 0071 #### [facility] [address] [place] [address], [place] Potassium [Moles/Vol] 4.0 mmol/L Normal 3.5-5.1 [facility] Comment on above: Performed By: #### 0 0071 #### [facility] [address] [place] [address], [place] Sodium [Moles/Vol] 140 mmol/L Normal 136-145 The [facility] Comment on above: Performed By: #### 0 0071 #### [facility] [address] [place] [address], [place] Urea nitrogen [Mass/Vol] 20 mg/dL Normal 7-25 [facility] Comment on above: Performed By: #### 0 0071 #### [facility] [address] [place] [address], [place] CBC W/DIFFon 08-02-2018 ABS BASOPHILS 0.1 10*3/uL Normal 0.0-0.2 The [facility] Comment on above: Performed By: #### 5 0103 #### [facility] [address] [facility] [place] [address], [facility] ABS IMM GRANS 0.1 10*3/uL Normal 0.0-0.2 The [facility] Comment on above: Performed By: #### 5 0103 #### [facility] [address] [place] [address], [facility] ABS NEUTROPHILS 4.2 10*3/uL Normal 1.6-7.6 The [facility] Comment on above: Performed By: #### 5 0103 #### [facility] [address] [facility] [place] [address], [facility] Basophils/100 WBC (Bld) 1.3 % High 0.0-1.0 [facility] Comment on above: Performed By: #### 5 0103 #### [facility] [address] [facility] [place] [address], [facility] Eosinophils (Bld) [#/Vol] 0.1 10*3/uL Normal 0.0-0.5 [facility] Comment on above: Performed By: #### 5 0103 #### [facility] [address] [facility] [place] [id number], [facility] Eosinophils/100 WBC (Bld) 2.0 % Normal 0.0-6.0 [facility] Comment on above: Performed By: #### 5 0103 #### [facility] [address] [facility] [place] [address], [facility] Erythrocyte distribution width (RBC) [Ratio] 13.6 % Normal 11.5-15.0 [facility] Comment on above: Performed By: #### 5 0103 #### [facility] [address] [place] [address], [facility] Hematocrit (Bld) [Volume fraction] 44.3 % Normal 39.0-50.0 [facility] Comment on above: Performed By: #### 5 0103 #### [facility] [address] [place] [address], [facility] Hemoglobin (Bld) [Mass/Vol] 15.1 g/dL Normal 13.0-17.0 [facility] Comment on above: Performed By: #### 5 0103 #### [facility] [address] [place] [address], [facility] IMMATURE GRANS 1.1 % High 0.0-1.0 The [facility] Comment on above: Performed By: #### 5 0103 #### [facility] [address] Lymphocytes (Bld) [#/Vol] 1.2 10*3/uL Normal 1.2-4.0 [facility] Comment on above: Performed By: #### 5 0103 #### [facility] [address] Lymphocytes/100 WBC (Bld) 18.3 % Low 20.0-45.0 [facility] Comment on above: Performed By: #### 5 0103 #### [facility] [address] [facility]. [address] MCH (RBC) [Entitic mass] 29.0 pg Normal 27.0-33.0 [facility] Comment on above: Performed By: #### 5 3 #### [facility] [address] [place] [address], [facility] MCHC (RBC) [Mass/Vol] 34.1 g/dL Normal 32.0-35.0 [facility] Comment on above: Performed By: #### 5 3 #### [facility] [address] [facility] [place] [address], [facility] MCV (RBC) [Entitic vol] 85.0 fL Normal 82.0-98.0 The [facility] Comment on above: Performed By: #### 5 102 #### [facility] [address] [place] [address], [facility] Monocytes (Bld) [#/Vol] 0.7 10*3/uL Normal 0.1-1.0 [facility] Comment on above: Performed By: #### 5 0103 #### [facility] [address] [place] [address], [facility] MONOS 11.1 % Normal 5.0-12.0 [facility] Comment on above: Performed By: #### 5 102 #### [facility] [address] [place] [address], [facility] Neutrophils/100 WBC (Bld) 66.2 % Normal 40.0-72.0 [facility] Comment on above: Performed By: #### 5 102 #### [facility] [address] [place] [address], [facility] Nucleated RBC/100 WBC (Bld) [Ratio] 0 % Normal 0-0 [facility] Comment on above: Performed By: #### 5 102 #### [facility] [address] [place] [address], [facility] PLAT CNT 179 10*3/uL Normal 150-400 The [facility] Comment on above: Performed By: #### 5 3 #### [facility] [address] [place] [address], [facility] RBC (Bld) [#/Vol] 5.21 10*6/uL Normal 4.20-5.70 [facility] Comment on above: Performed By: #### 5 102 #### [facility] [address] [place] [address], [facility] WBC (Bld) [#/Vol] 6.39 10*3/uL Normal 4.00-10.60 [facility] Comment on above: Performed By: #### 5 0103 #### [address] CERVICAL SPINE 4 OR 5 VIEWSo n 08-02-2018 CERVICAL SPINE 4 OR 5 VIEWS [facility] Department of Radiology [address] [place] [address] [place] [address] Patient Name: MATTY GARCES : 1970 Sex: M Age: Race: White Pt. Location: Patient Status: D Ordered Date: 08/02/2018 1:05:00 PM Completed Date: 08/02/2018 01:29 PM Requesting Provider: LUCIANO VIEIRA Attending Provider: LUCIANO VIEIRA Report Copy To: VENUS MENDEZ Signs & Symptoms: Z01.89 Encounter for other specified special examinations I10 History: [place] Comments: , PREOP XRAY AP/LAT \EANDE\ FLEX/EX [...] findings. Electronically signed by:Bella King. Transcribed by: [email or web address], User Resident: EMILE TINAJERO Electronically Signed by: [...] CHEST 1995;108:231S-246S. Performed By: #### 5 7307, 05712 #### [facility] [address] [facility] PT Coag (PPP) [Time] 14.7 s Normal 12.3-14.8 [facility] Comment on above: Result Comment: ALL RESULTS MUST BE INTERPRETED WITH RESPECT TO BLOOD DRAWING ARTIFACT OR DILUTION ERROR OF ANTICOAGULANT AT THE TIME OF SAMPLING. Performed By: #### 5 7307, [id number] #### [facility] [address] TYPE AND SCREENon 08-02-2018 ABO INTERPRETATION A Normal The [facility] Comment on above: Order Comment: 2 uni ts 2 units 2 units 2 units 2 units Performed By: #### 6 2586 #### [facility] [address] [facility]. [address] RH INTERPRETATION Positive Normal The [facility] Comment on above: Order Comment: 2 uni ts 2 units 2 units 2 units 2 units Performed By: #### 6 2586 #### [facility] [address] [facility] [address] URINALYSIS REFLEXon 08-02-20 18 Appearance (U) CLEAR Normal CLEAR The [facility] Comment on above: Performed By: #### 3 0965 #### [facility] [address] [facility] [place] [address], [facility] Bilirubin [Mass/Vol] Negative Normal NEGATIVE The [facility] Comment on above: Performed By: #### 3 0965 #### [facility] [address] [place] [address], [facility] BLOOD Negative Normal NEGATIVE The [facility] Comment on above: Performed By: #### 3 0965 #### [facility] [address] [place] [address], [facility] Color (U) YELLOW Normal YELLOW The [facility] Comment on above: Performed By: #### 3 0965 #### [facility] [address] [place] [address], [place] Glucose [Mass/Vol] 150 mg/dL Abnormal NEGATIVE [facility] Comment on above: Performed By: #### 3 0965 #### [facility] [address] [place] [address], [place] KETONE Negative Normal NEGATIVE The [facility] Comment on above: Performed By: #### 3 0965 #### [facility] [address] [place] [address], [place] Negative Normal NEGATIVE The [facility] Comment on above: Performed By: #### 3 0965 #### [facility] [address] [place] [address], [place] MICRO NOT DONE negative chemical reactions unless requested in original order Normal The [facility] Comment on above: Performed By: #### 3 0965 #### [facility] [address] [place] [address], [place] Nitrite Ql (U) Negative Normal NEGATIVE The [facility] Comment on above: Performed By: #### 3 0965 #### [facility] [address] [place] [address], [place] pH (Bld) 5.0 Normal 5.0-8.0 [facility] Comment on above: Performed By: #### 3 0965 #### [facility] [address] [place] [address], [place] Protein (U) [Mass/Vol] Negative Normal NEGATIVE [facility] Comment on above: Performed By: #### 3 0965 #### [facility] [address] [place] [address], [facility] SPEC GRAV 1.024 High 1.015-1.020 The [facility] Comment on above: Performed By: #### 3 0965 #### [facility] [address] [place] [address], [facility] Vital Signs Date Time Vital Sign Value Performing Clinician Molly bunn 02-25-2022 10:30-0400 Blood Pressure Location Viola Lue [facility] 02-25-2022 10:30-0400 Diastolic blood pressure 107 mm[Hg] Viola Lue [facility] 02-25-2022 10:30-0400 Heart rate 74 /min [facility] 02-25-2022 10:30-0400 Respiratory rate 16 /min [facility]ue [facility] 02-25-2022 10:30-0400 Systolic blood pressure 157 mm[Hg] Viola Lue [facility] Encounters Encounter Date Encounter Type Care Provider Facility Start: 12-29-2023 End: 12-29-2023 ambulatory RUBÉN GEIGER Not Available Start: 11-29-2023 End: 11-30-2023 ambulatory Diallo Beauchamp MD Facility:[facility] Start: 10-18-2023 End: 10-19-2023 ambulatory Diallo Beauchamp MD Facility:[facility] Start: 09-27-2023 End: 09-27-2023 ambulatory RUBÉN GEIGER Not Available Start: 08-30-2023 End: 08-31-2023 ambulatory Diallo Beauchamp MD Facility:[facility] Start: 07-12-2023 End: 07-13-2023 ambulatory Diallo Beauchamp MD Facility:[facility] Start: 06-14-2023 End: 06-15-2023 ambulatory Diallo Beauchamp MD Facility:[facility] Start: 03-11-2023 End: 03-11-2023 ambulatory Rubén Geiger Facility:[facility] Start: 12-06-2022 End: 12-06-[address] VENUS MENDEZ . Facility: Start: 12-05-2022 Encounter for genera l adult medical examination without abnormal findings DR VENUS MENDEZ . [facility] Start: 12-01-2022 End: 12-02-[address] [...] encounter procedure Viola Grullon [facility] Start: 01-04-2022 End: 01-05-[address] VENUS MENDEZ . Facility: Start: 01-30-2019 End: 02-01-2019 Evaluation and management of inpatient PROVIDER UNKNOWN Facility:[facility] Start: 08-17-2018 End: 08-18-2018 Patient encounter procedure PROVIDER UNKNOWN Facility:[facility] Procedures Date Procedure Procedure Detail Performing Clinician Start: 12-01-[address] FRANKLIN MENDEZ . Comment on above: Performed By: #### P SAS #### [facility] [address] [place] [address] [address] Shabnam Rae Start: 01-30-2019 FUSION CERV JT W INT BD FUS DEV, ANT APPR A COL, OPEN AZEDINE [facility] Start: 01-30-2019 REMOVAL OF INT FIX F ROM CERVCAL VERTEBRA, OPEN APPROACH AZ[facility]INE [facility] Start: 01-23-2019 Antibody screen PROVIDE R UNKNOWN Comment on above: Performed By: #### 5 7307, [id number] #### [facility] [address] Start: 08-17-2018 ANESTH SPINE CORD SURGERY [...] units Performed By: #### 6 2586 #### [facility] [address] Colonoscopy Viola Grullon Hemorrhoids (disorder) Viola Grullon Hernia of abdominal cavity (disorder) Viola Grullon Tonsillectomy Viola Grullon Payers Date Payer Category Payer Self-pay 2022 Medicaid [id number] 2022 Unknown 1970 Unknown [id number] 2.16.8 [id number] 1970 Unknown [id number] 2.16.8 40.1.283774.3.579.2.647 1970 Unknown [id number] 2.16.84 0.1.887667.3.579.2.593 1970 Unknown [id number] 2.16.84 0.1.742405.3.579.2.593 1970 Unknown [id number] 2.16.84 0.1.190530.3.579.2.593 1970 Unknown [id number] 2.16.84 0.1.235158.3.579.2.593 1970 Unknown [id number] 2.16.84 0.1.721323.3.579.2.593 1970 Unknown [id number] 2.16.84 0.1.150834.3.579.2.593 1970 Unknown [id number] 2.16. 840.1.456459.3.579.2.196 1970 Unknown [id number] 2.16. 840.1.102608.3.579.2.196 1970 Unknown [id number] 2.16. 840.1.140099.3.579.2.196 1970 Unknown [id number] 2.16. 840.1.097405.3.579.2.196 1970 Unknown [id number] 2.16. 840.1.437932.3.579.2.196 1970 Unknown [id number] 2.16.84 0.1.818991.3.579.2.1259 1970 Unknown [id number] 2.16.84 0.1.521955.3.579.2.1259 1959 Unknown [id number] Unknown [id number] Unknown [id number] 2.16.8 40.1.209719.3.579.2.531 Social History Date Type Detail Facility Tobacco smoking status No Smoking Status Entered [facility] Sex Assigned At Male [facility] Functional Status Date Assessment Result Facility 02-25-2022 Functional Status N/A [facility] Progress note 06-09-2023 Note Date & Type [...] by: ALVINA CAICEDO Date: 2022-03-26 10:47 [facility] Discharge instructions 02-25-2022 Note Date & Type [...] Watch the hydrocele for any changes. Take [id number] and prescription medicines only as told by [...] 02/17/2011 Document Revised: 09/10/2018 Document Reviewed: 09/10/2018 [facility] Patient Education 2020 [employer] Follow Up Care 01/28/2022 10:36:35 With:Mitchel DELGADO, [place] Gregorio, URO Address: When: Unknown [facility] Evaluation + Plan note Note Date & Type Note Facility Evaluation + Plan note No data available for this section [facility] Progress note Note Date & Type Note Facility Progress note No data available for this section [facility] Summary Purpose Family History No Family History [...] Hospital Course Note MR#: [id number] [facility] Pt. Name: Matty Garces Admitted: 01/30/2019 [...] section and content) DATE CREATED AUTHOR 07/19/2019 [facility] DATE CREATED AUTHOR AUTHOR'S ORGANIZ ATION 02/27/2022 [facility] DATE CREATED AUTHOR AUTHOR'S ORGANIZ ATION 12/08/2022 [facility] DATE CREATED AUTHOR AUTHOR'S ORGANIZ ATION 03/17/2023 [facility] DATE CREATED AUTHOR AUTHOR'S ORGANIZ ATION 06/17/2023 [facility] DATE CREATED AUTHOR AUTHOR'S ORGANIZ ATION 12/03/2023 [facility] DATE CREATED AUTHOR AUTHOR'S ORGANIZ ATION 12/30/2023 [facility] EPIC Care Team (unrecognized sect ion and content) Personnel Name: Venus Mendez MD Address: [address] [place] [address] FOR RECORDS PERTAINING TO PATIENTS WHO ARE [...] BE BASED ON THE PRIMARY CLINICAL RECORDS. [facility]. provides no warranty or guarantee of the accuracy or completeness of information in this document.
[2024-01-03 06:36] LABS: Glucometer 93 mg/dL (74-106)
[2024-01-03 06:39] LABS: Basophils Absolute Auto 0.1 10^3/uL (0.0-0.1); Basophils Percent Auto 0.6 % (0.2-2.0); Eosinophils Absolute Auto 0.1 10^3/uL (0.0-0.7); Eosinophils Percent Auto 0.6 % (0.9-7.0); Hematocrit 52.4 % (42.0-54.0); Hemoglobin 15.6 g/dL (14.0-18.0); Immature Granulocytes Abs Auto 0.15 10^3/uL (0.00-0.03); Immature Granulocytes Pct Auto 1.4 % (0.0-0.5); Lymphocytes Percent Auto 9.3 % (20.5-60.0); Mean Corpuscular HGB Conc 29.8 g/dL (29.9-35.2); Mean Corpuscular Hemoglobin 25.2 pg (25.9-34.0); Mean Corpuscular Volume 84.5 fL (80.0-94.0); Mean Platelet Volume 9.7 fL (9.5-13.5); Monocytes Absolute Auto 0.8 10^3/uL (0.3-0.8); Neutrophils Absolute Auto 8.4 10^3/uL (1.4-6.5); Neutrophils Percent Auto 80.1 % (43.0-75.0); Platelet Count 178 10^3/uL (150-450); Red Cell Distribution Width 17.6 % (11.0-15.0); White Blood Count 10.5 10^3/uL (4.0-11.0)
[2024-01-03] MEDS: LACTATED RINGER'S SOLUTION 1,000 ML 50 ML IV (07:14)
[2024-01-03] MEDS: CEFAZOLIN SODIUM 3,000 MG in 0.9 % SODIUM CHLORIDE 100 ML 200 MG IV (07:47)
--- NOTE | 2024-01-03 07:59 | PC.NURSE ---
Patient was consented for a block by Bruno Luther CRNA. Time out performed per protocol. Patient was placed on monitors and O2 and positioned per request for first block. Popliteal block began at 0731 and ended at 0736. [employer] monitor was used for this area. Patient tolerated procedure well. Second site (saphenous) was started at 0741 and ended at 0744. Patient also tolerated this area well. Bedside ultrasound was used to locate both areas. Patient positioned onto back and sat up slightly. Patient remained on O2 and monitors until taken to OR.
[2024-01-03 09:59] LABS: Glucometer 129 mg/dL (74-106)
--- NOTE | 2024-01-03 10:19 | PC.NURSE ---
Sleep apnea noted; instructed to take deep breaths frequentlyand does so without difficulty
--- NOTE | 2024-01-03 10:26 | PM.ORONB ---
Brief Operative Note Date of procedure: 01/03/24 Pre-op diagnosis general: Right hallux rigidus/malleus, hallux ulcer, diabetes with foot ulcer Post-op diagnosis: same as pre-op Procedure: PROCEDURE PERFORMED: right 1st metatarsal phalangeal joint cheilectomy, hallux interphalangeal joint arthroplasty, application of allogenic skin substitute and total contact cast INDICATION FOR PROCEDURE: patient is a 53-year-old male with multiple comorbidities including type 2 diabetes with peripheral neuropathy. He is well known to my practice and underwent left foot surgery for an ulcer on his great toe and his ulcer healed without recurrence. Unfortunately recently he developed a similar wound on his right great toe. Clinical and radiographic findings were similar to his left foot therefore we discussed recent benefits of surgical intervention involving the same procedures that were performed on the left foot. He wished to proceed with the above procedures INTRAOPERATIVE FINDINGS: reduced range of motion with crepitus of 1st metatarsophalangeal joint. Range of motion improved with cheilectomy. Hallux IPJ is contracted and in slight valgus. Ulceration was without evidence of infection and there is no deep soft tissue or bone exposure. PROCEDURE IN DETAIL: Patient was identified in pre op and consent was reviewed. Correct side and site were identified and marked. Pre-op antibiotics were started. Patient was brought to OR suite and place on table in a supine position. General anesthesia was administered. Calf tourniquet applied. Operative extremity was prepped and draped in usual sterile fashion. Formal time-out was performed and the foot/ankle were exsanguinated and tourniquet inflated. Incision created over dorsal aspect of the 1st MPJ. Bleeders coagulated. EHL protected throughout the procedure. Capsulotomy performed and McGlammry elevator inserted into 1st MPJ. A saw was used to remove approximately 1/3 of the dorsal 1st metatarsal head. ROM on the table showed 90 degrees of dorsiflexion. Any additional exostosis were also removed. the incision was then extended over the hallux IPJ. Utilizing fluoroscopy arthroplasty was planned to aid in sagittal and transverse plane deformity correction. A sagittal saw was used to remove the head of the proximal phalanx which was then passed the back table. Range of motion of the great toe significantly improved as well as position was notably rectus. The surgical site was irrigated with copious amounts of sterile saline. The tourniquet was dropped and a prompt hyperemic response was noted. Skin was then closed in layers. then with attention to the plantar medial great toe ulceration and wound measured 1.9 x 2.0 x 0.2 cm and was excisionally debrided down to and including fat and fascia and one hundred percent healthy granular bed. Then in allogenic skin substitute was placed over the wound base and held in place by madison. Multiple layers of Adaptic were placed over the graft followed by dry sterile dressing. Xeroform and 4 x 4 gauze were placed over the dorsal incision. Stockinette was applied followed by felt padding and a total contact cast using the TCC-EZ system was applied accordingly. Patient tolerated procedure and anesthesia well and was transferred to the recovery room with vital signs stable. POSTOPERATIVE PLAN: Discharge home under family's care Post op instructions provided verbally and written prescription(s) were placed in chart Weightbearing as tolerated in TCC Follow-up within 1 week Implants: Puraply allogenic skin substitute Anesthesia: MAC and regional Surgeon: Trey Vallejo Washing Machine Repairer: Hung Guerrier Estimated blood loss (mL): 25 Tourniquet time (min): 57 Condition: stable Disposition: PACU
--- NOTE | 2024-01-03 10:42 | XR_ITS ---
The [address] [address] Patient Name: MATTY WADE MRN: [id number] date: 1970 Sex: M Assigned Patient Location: [facility] Current Patient Location: Accession/Order Number: [id number] Exam Date: 01/03/2024 10:35 Report Date: 01/03/2024 12:06 At the request of: ANTONINA HAWK Procedure: XR foot RT min 3V PROCEDURE: XR foot RT min 3V COMPARISON: 12/10/2023 HISTORY: postop pacu FINDINGS: BONES:Interval resection head of the first proximal phalanx. Stable degenerative changes with enthesopathic spurring of the calcaneus at the Achilles insertion SOFT TISSUES:Postprocedural soft tissue swelling and surgical madison plantar first toe EFFUSION:None visible. OTHER: Stable linear metallic foreign body in the soft tissues between the second and third metatarsals XR/XR foot RT min 3V IMPRESSION: Postsurgical changes of the first toe Electronically authenticated by: ALVINA CAICEDO Date: 01/03/2024 12:06
== END 2024-01-03 11:25 | disposition home or self-care (01) ==
PROVIDERS: Anesthesiology; PCP Family Medicine; Visit Provider Podiatrist Foot & Ankle Surgery
PROC: (CPT 300; principal; 2024-01-03 07:30)
DX: E11.621 Type 2 diabetes mellitus with foot ulcer (principal); L97.512 Non-pressure chronic ulcer of other part of right foot with fat layer exposed; I10 Essential (primary) hypertension; M20.21 Hallux rigidus, right foot; M20.31 Hallux varus (acquired), right foot; E11.42 Type 2 diabetes mellitus with diabetic polyneuropathy; F32.A Depression, unspecified; G47.00 Insomnia, unspecified; K21.9 Gastro-esophageal reflux disease without esophagitis; Z98.1 Arthrodesis status; Z79.899 Other long term (current) drug therapy; Z79.82 Long term (current) use of aspirin; G47.33 Obstructive sleep apnea (adult) (pediatric); M54.16 Radiculopathy, lumbar region; Z79.84 Long term (current) use of oral hypoglycemic drugs
CPT/HCPCS: 15004; 15275; 28289; 36415; 64445; 64450; 73630; 76000; 76942; 82948; 85025; 88305; 99999; J2704; Q4196

== ENCOUNTER 2024-01-06 14:36 | Outpatient (OUT) | payer MEDICAID, SELFPAY | END 2024-01-06 14:37 | disposition home or self-care (01) | LOC: WC 14:37 | PROVIDERS: PCP Family Medicine; Visit Provider Podiatrist Foot & Ankle Surgery | DX: L97.512 Non-pressure chronic ulcer of other part of right foot with fat layer exposed (principal) | CPT/HCPCS: 29445; A6213 ==

== ENCOUNTER 2024-01-14 12:05 | Outpatient (OUT) | payer MEDICAID, SELFPAY ==
--- OUTSIDE RECORDS SUMMARY | 2024-01-14 12:13 | XMS_ITS | CCD ---
Author Organization [facility] Care Team Providers Care Limousine Rental Clerk Name Role Phone UNKNOWN, PROVIDER Admitting Unavailable UNKNOWN, PROVIDER Attending Unavailable VENUS MENDEZ Referring Unavailable VENUS MENDEZ Primary Care Unavailable [place] Procedure Practitioner Unavailab le UNKNOWN, PROVIDER Surgeon Unavailable [place] Procedure Practitioner Unavailab le SANDRA BILL Surgeon Unavailable UNKNOWN, PROVIDER Admitting Unavailable UNKNOWN, PROVIDER Attending Unavailable VENUS MENDEZ Referring Unavailable VENUS MENDEZ Primary Care Unavailable [place] Procedure Practitioner Unavailab le UNKNOWN, PROVIDER Surgeon [...] MANUEL Consulting Unavailable MAYRA BERNAL Consulting Unavailable Quynh DELGADO, Diallo Berkowitz Attending Unavailable Quynh DELGADO, Diallo Berkowitz Attending Unavailable Quynh DELGADO, Diallo Berkowitz Attending Unavailable Quynh DELGADO, Diallo Berkowitz Attending Unavailable Quynh DELGADO, Diallo Berkowitz Attending Unavailable CHINO Vallejo Attending Provider [phone] Trey Vallejo Admitting Unavailable Trey Vallejo Attending Unavailable Rubén Geiger. Admitting Unavailable Rubén Geiger. Attending Unavailable Venus Mendez Primary Care Unavailable RUBÉN GEIGER Attending Unavailable RUBÉN GEIGER Attending Unavailable VALENCIA DE LEÓN Attending Unavailable VALENCIA DE LEÓN Referring Unavailable Allergies Allergy Classification Reported Allergen(s) Allergy Type Date of Onset Reaction(s) Facility (1 source) Aspartame Drug Allergy 08-17-20 18 [facility] Repository (1 source) avoid; Translations: [Unknown] Propensity to adverse reactions (disorder) 08-17-20 18 [facility] (1 source) vitamin B12; Translations: [cyanocobalamin] Drug Allergy Unknown (qualifier value) [facility] (1 source) Acetaminophen / HYDROcodone Drug Allergy [facility] Rep[facility] (1 source) Corticosteroids Drug allergy (disorder) [facility] (1 source) fentaNYL Drug Allergy [facility] (1 source) Misc-Food; Translations: [Misc-Food] Food allergy (disorder) [facility] (1 source) Corticosteroids Drug allergy (disorder) 05-14-20 18 [facility] Repository Medications Current Medications Medication Drug Class(es) Dates Sig (Normalized) Sig (Original) aspirin 81 mg delayed release oral tablet (1 source) Platelet Aggregation Inhibitor, Nonsteroidal Anti-inflammatory Drug Start: 05-14-2018 take 81 mg by mouth once daily Aspirin Active 81 MG PO Daily May 14, 2018 12:00am Biotin (2 sources) Start: 02-26-2022 BIOTIN BIOTIN Start Date: 02/26/22 Status: Ordered Start: 05-14-2018 take 10 mg by mouth once daily Biotin Active 10 MG PO Daily May 14, 2018 12:00am carvedilol 25 mg oral tablet (2 sources) alpha-Adrenergic Jorge L, beta-Adrenergic Jorge L Start: 02-26-2022 carvedilol 25 mg Tab Refills(s) 0 Start Date: 02/26/22 Status: Ordered Start: 05-14-2018 take 12.5 mg by mout h twice daily Carvedilol Active 12.5 MG PO Twice daily May 14, 2018 12:00am clonazePAM 0.5 mg oral tablet (2 sources) Benzodiazepine Start: 02-26-2022 ClonazePAM 0.5 mg Tab Refills(s) 0 Start Date: 02/26/22 Status: Ordered Start: 05-14-2018 take 1 mg by mouth at bedtime Clonazepam Active 0.05 mg/kg PO Bedtime May 14, 2018 12:00am diazePAM 5 mg oral tablet (1 source) Benzodiazepine Start: 05-14-2018 take 5 mg by mouth at bedtime Diazepam Active 5 MG PO Bedtime May 14, 2018 12:00am diclofenac sodium 75 mg delayed release oral tablet (1 source) Nonsteroidal Anti-inflammatory Drug Start: 05-14-2018 take 75 mg by mouth twice daily Diclofenac Sodium Active 75 MG PO Twice daily May 14, 2018 12:00am doxazosin 8 mg oral tablet (1 source) alpha-Adrenergic Jorge L Start: 02-26-2022 doxazosin 8 mg oral tablet Refills(s) 0 Start Date: 02/26/22 Status: Ordered doxepin hydrochloride 10 mg oral capsule (2 sources) Tricyclic Antidepressant Start: 02-26-2022 doxepin 10 mg Cap Refills(s) 0 Start Date: 02/26/22 Status: Ordered gabapentin 600 mg oral tablet (2 sources) Anti-epileptic Agent Start: 05-14-2018 gabapentin 600 mg Tab Refills(s) 0 Start Date: 02/26/22 Status: Ordered glycopyrrolate 1 mg oral tablet (1 source) Start: 02-26-2022 glycopyrrolate 1 mg oral tablet Refills(s) 0 Start Date: 02/26/22 Status: Ordered lisinopril 10 mg oral tablet (1 source) Angiotensin Converting Enzyme Inhibitor Start: 05-14-2018 take 10 mg by mouth once daily Lisinopril Active 10 MG PO Daily May 14, 2018 12:00am modafinil 200 mg oral tablet (1 source) Sympathomimetic-lik e Agent Start: 02-26-2022 modafinil 200 mg Tab Refills(s) 0 Start Date: 02/26/22 Status: Ordered omeprazole 40 mg delayed release oral capsule (1 source) Proton Pump Inhibitor Start: 05-14-2018 take 40 mg by mouth twice daily Omeprazole Active 40 MG PO Twice daily May 14, 2018 12:00am ondansetron 4 mg disintegrating oral tablet (1 source) Serotonin-3 Receptor Antagonist Start: 05-14-2018 Ondansetron Active 4 MG PO every 6 to 8 hours May 14, 2018 12:00am pantoprazole 40 mg delayed release oral tablet (1 source) Proton Pump Inhibitor Start: 02-26-[address] Tab Refills(s) 0 Start Date: 02/26/22 Status: Ordered simvastatin 20 mg oral tablet (2 sources) HMG-CoA Reductase Inhibitor Start: 05-14-2018 simvastatin 20 mg Tab Refills(s) 0 Start Date: 02/26/22 Status: Ordered SUMAtriptan 100 mg oral tablet (1 source) Serotonin-1b and Serotonin-1d Receptor Agonist Start: 05-14-2018 Sumatriptan Succinate Active 100 MG PO EVERY 2-4 HOURS May 14, 2018 12:00am tiZANidine 4 mg oral capsule (1 source) Central alpha-2 Adrenergic Agonist Start: 05-14-2018 take 4 mg by mouth at bedtime Tizanidine Active 4 MG PO Bedtime May 14, 2018 12:00am Vit D3-Folic Weoa-B9-I9-B12 (1 source) Start: 05-14-2018 take 1 tablet by mouth once daily Vit D3-Folic Ufpe-E3-E4-B12 Active 1 TAB PO Daily May 14, 2018 12:00am Problems Active Problems Problem Classification Problem Date [...] 3 Chronic Other aftercare (1 source) 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; Translations: [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 ASPIRIN] Onset: 3 Episodic Other aftercare (1 source) Other terminal supervisor (current) drug therapy; Translations: [OTH 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 CURRENT DRUG THERAPY] Onset: 3 Episodic Other connective tissue disease (3 sources) Pain in right forearm; Translations: [PAIN IN RIGHT FOREARM] Onset: 3 Episodic Other connective tissue disease (1 source) Arthrodesis status; Translations: [ARTHRODESIS STATUS] Onset: 3 Episodic Other connective tissue disease (1 source) Muscle weakness of upper limb; Translations: [Other symptoms and signs involving the musculoskeletal system] 08-25-2023 Episodic Other diseases of veins and lymphatics [...] Translations: [POLYNEUROPATHY UNSPECIFIED] Onset: 2 Chronic Other nervous system disorders (1 source) Numbness of upper limb; Translations: [Anesthesia of skin] 08-25-2023 Episodic Other screening for suspected conditions (not mental disorders or infectious disease) (6 sources) Encounter for screening for malignant neoplasm of prostate; Translations: [Elevated prostate specific antigen [PSA]] Onset: 2 Episodic Residual codes; unclassified (1 source) Sleep apnea, unspecified; Translations: [SLEEP APNEA UNSPECIFIED] Onset: 3 Chronic Spondylosis; intervertebral disc disorders; other back problems (1 source) Cervical disc prolapse with radiculopathy; Translations: [Cervical disc disorder with radiculopathy, unspecified cervical region] 08-25-2023 Episodic Superficial injury; contusion (2 sources) Contusion of [...] FB LT FOOT INITIAL] Onset: 03-26-2022 Episodic Other connective tissue disease (1 source) Other muscle spasm; Translations: [Other muscle spasm] Onset: 03-11-2023 Episodic Results Test Name Value Interpretation Reference Range Facility [facility] 01-03-2024 L Specimen: [id number] Received: 01/03/24 Status: GIOVANNI Jacinto Num: [id number] Spec Type: Surgical Subm Dr: Trey Vallejo DPM, MS Tissues: A Bone Fragments - Pathologic Fracture (PROXIMAL PHALANX RIGHT HALLU) Procedures: HE/2, Gross/Micro L5, Decalcification Age/ Patient Sex Location Account Attending Physician Matty Garces 53/M LABELL [id number] Trey Vallejo DPM, MS SPEC NUM: [id number] RECD: 01/03/24 STATUS: GIOVANNI JACINTO NUM: [id number] SOFY: 01/03/[address]: Trey Vallejo DPM, MS ENTERED: 01/03/[address] [facility] [address]: Toño,Ayesha SPEC TYPE: Surgical DEPT: SEEMA SUAZO ORDERED: HE/2, Gross/Micro L5, Decalcification ORDERED: HE/2, Gross/Micro L5, Decalcification Pathological Diagnosis Proximal phalanx bone of right foot, excision: -An apparently irregular wedge bony fragment with irregular cortical and subcortical trabecular bony thickening, compatible with excision of the bunion exostosis of the deformed hallux valgus Gross Description Received in formalin labeled with the patient's name and proximal phalanx right Hallux , is a 2.1 x 0.8 x 0.6 cm fragment of bone. The presumed resection margin is flat, smooth and inked black. The opposite surface is covered by unremarkable articular cartilage and smooth. Sectioning reveals unremarkable yellow, spongy bone matrix. Thread Pulling Machine Attendant sections are submitted in A1 following decal. Clinical history: Non-pressure chronic ulcer . Right hallux IPJ arthroplasty with wound debridement and graft application TW Specimen: [id number] Received: 01/03/24 Status: GIOVANNI Jacinto Num: [id number] Spec Type: Surgical Subm Dr: Trey Vallejo,DPM, MS Tissues: A Bone Fragments - Pathologic Fracture (PROXIMAL PHALANX RIGHT HALLU) Procedures: HE/2, Gross/Micro L5, Decalcification Patient: Matty Garces [id number] (Continued) Specimen: [id number] Received: 01/03/24 (Continued) Signed (signature on file) Viral Rae MD 01/06/24 1838 Specimen: [id number] Received: 01/03/24 Status: GIOVANNI Jacinto Num: [id number] Spec Type: Surgical Subm Dr: Trey Vallejo,[place], [place] Tissues: A Bone Fragments - Pathologic Fracture (PROXIMAL PHALANX RIGHT HALLU) Procedures: HE/2, Gross/Micro L5, Decalcification Patient: Matty Garces [id number] (Continued) Specimen: [id number] Received: 01/03/24 (Continued) CPT Codes 45265 Specimen: [id number] Received: 01/03/24 Status: GIOVANNI Jacinto Num: [id number] Spec Type: Surgical Subm Dr: Trey Vallejo,[place], [place] Tissues: A Bone Fragments - Pathologic Fracture (PROXIMAL PHALANX RIGHT HALLU) Procedures: HE/2, Gross/Micro L5, Decalcification Patient: Matty Garecs [id number] (Continued) Signed (signature on file) Viral Rae MD 01/06/241837 Normal [facility] XR cervical spine 5V*on 02-12 XR cervical spine 5V* [place] [address] XRay Report Signed Patient: Matty Garces MR#: [id number] [birth year] : 1970 Acct:[id number] Age/Sex: 52 / M ADM Date: 03/11/23 Loc: ICXD Room: Type: [facility] Attending Dr: Rubén Geiger MD [...] Crow Contreras M.D.03/11/2023 3:48 PM Dictation Location: [place] [address] Transcribed By: [facility] 03/11/23 1548 Dictated By: Crow Contreras DO 03/11/23 1544 Signed By: 03/11/23 1548 Normal [facility] Physician [facility] CT CSPINE WO CONon CT CSPINE [...] corpectomy at C5-C6. Electronically authenticated by: ANGEL JORDAN Date: 2022-12-06 06:37 Normal [facility] CT [...] sinus mucoperiosteal thickening Electronically authenticated by: ANGEL JORDAN Date: 2022-12-06 06:41 Normal [facility] CT HEAD WO CONon 12-06-2022 [...] acute intracranial abnormality. Electronically authenticated by: ANGEL JORDAN Date: 2022-12-06 06:39 Normal [facility] XR ELBOW RT MIN 3 VIEWSon XR ELBOW RT MIN 3 VIEWS Exam: Radiographs: XR ELBOW RT MIN 3 VIEWS Reason for exam: Elbow pain Comparison: None IMPRESSION: Right elbow degenerative changes. Olecranon spur. Remainder of the right elbow is unremarkable. Electronically authenticated by: MICHAEL CASANOVA Date: 2022-12-06 07:22 Normal [facility] XR FOREARM RT 2Von 3 XR FOREARM RT 2V Exam: Radiographs: XR FOREARM RT 2V Reason for exam: Forearm pain Comparison: None IMPRESSION: Mild degenerative changes in the right elbow and wrist. Right forearm is otherwise unremarkable. Electronically authenticated by: MICHAEL CASANOVA Date: 2022-12-06 08:07 [address] [facility] PSA, FREE AND TOTAL RATIOon 12-03-2022 % Free PSA 9.0 % Normal [facility] Comment on above: Result Comment: [...] men. Performed By: #### P SAFREE #### [facility] [address] [place] [address] Dr. Shabnam Rae Prostate specific Ag [Mass/Vol] 5.9 ng/mL Critically high 0.0-4.0 [facility] Comment on above: Result Comment: Tanja ayala ECLIA methodology. . According to the [employer], Serum PSA should decrease and [...] disease. Performed By: #### P SAFREE #### [facility] [address] [place] [address] Dr. Shabnam Rae PSA, Free 0.53 ng/mL Normal N/A [facility] Comment on above: Result Comment: Tanja ayala ECLIA methodology. Performed By: #### P SAFREE #### [facility] [address] [place] [address] Dr. Shabnam Rae INSULINon 12-02-2022 Insulin 20.2 uIU/mL Normal 2.6-24.[address] [facility] Comment on above: Performed By: #### P SASC #### [facility] [address] [place] [address] Dr. Shabnam Rae TESTOSTERONE, TOTALon 2022 Testosterone [Mass/Vol] 256 ng/dL Critically low 264-916 [facility] Comment on above: Result Comment: Adul t male reference interval is based on a population of healthy nonobese males (BMI <30) between 19 and 39 years old. adia Ch.al. JCEM 2017,102;2395-5113. PMID: [id number]. Performed By: #### P SASC #### [facility] [address] [place] [address] Dr. Shabnam Rae CBC AUTO DIFFon 12-01-2022 BASO # 0.1 103/ul Normal 0.0-0.1 [facility] Comment on above: Performed By: #### P SASC #### [facility] [address] [place] [address] Dr. Shabnam Rae Basophils/100 WBC (Bld) 1.0 % Normal 0.2-2.0 [facility] Comment on above: Performed By: #### P SASC #### [facility] [address] [place] [address] Dr. Shabnam Rae EO # 0.1 103/ul Normal 0.0-0.7 [facility] Comment on above: Performed By: #### P SASC #### [facility] [address] [place] [address] Dr. Shabnam Rae Eosinophils/100 WBC (Bld) 1.8 % Normal 0.9-7.0 [facility] Comment on above: Performed By: #### P SASC #### [facility] [address] [place] [address] Dr. Shabnam Rae Erythrocyte distribution width (RBC) [Ratio] 14.8 % Normal 11.0-15.0 [facility] Comment on above: Performed By: #### P SASC #### [facility] [address] [place] [address] Dr. Shabnam Rae Hematocrit (Bld) [Volume fraction] 49.9 % Normal 42.0-54.0 [facility] Comment on above: Performed By: #### P SASC #### [facility] [address] [place] [address] Dr. Shabnam Rae Hemoglobin (Bld) [Mass/Vol] 16.0 g/dL Normal 14.0-18.0 [facility] Comment on above: Performed By: #### P SASC #### [facility] [address] [address] [address] Shabnam Rae IG # 0.04 10e3/ul Critically high 0.00-0.03 [facility] Comment on above: Performed By: #### P SASC #### [facility] [address] [address] [address] Shabnam Rae IG % 0.6 % Critically high 0.0-0.5 [facility] Comment on above: Performed By: #### P SASC #### [facility] [address] [place] [address] Dr. Shabnam Rae LYMPH # 1.0 103/ul Critically low 1.2-3.8 [facility] Comment on above: Performed By: #### P SASC #### [facility] [address] [place] [address] Dr. Shabnam Rae Lymphocytes/100 WBC (Bld) 16.2 % Critically low 20.5-60.0 [facility] Comment on above: Performed By: #### P SASC #### [facility] [address] [place] [address] Dr. Shabnam Rae MANUAL DIFF REQ NO Normal [facility] Comment on above: Performed By: #### P SASC #### [facility] [address] [address] [address] Shabnam Rae MCH (RBC) [Entitic mass] 27.7 pg Normal 25.9-34.0 [facility] Comment on above: Performed By: #### P SASC #### [facility] [address] [address] [address] Shabnam Rae MCHC (RBC) [Mass/Vol] 32.1 g/dL Normal 29.9-35.2 [facility] Comment on above: Performed By: #### P SASC #### [facility] [address] [address] [address] Shabnam Rae MCV (RBC) [Entitic vol] 86.3 fL Normal 80.0-94.[address] [facility] Comment on above: Performed By: #### P SASC #### [facility] [address] [place] [address] Dr. Shabnam Rae MONO # 0.5 103/ul Normal 0.3-0.[address] [facility] Comment on above: Performed By: #### P SASC #### [facility] [address] [place] [address] Dr. Shabnam Rae Monocytes/100 WBC (Bld) 7.6 % Normal 1.7-12.[address] [facility] Comment on above: Performed By: #### P SASC #### [facility] [address] [place] [address] Dr. Shabnam Rae NEUT # 4.6 103/ul Normal 1.4-6.[address] [facility] Comment on above: Performed By: #### P SASC #### [facility] [address] [place] [address] Dr. Shabnam Rae Neutrophils/100 WBC (Bld) 72.8 % Normal 43.0-75.0 [facility] Comment on above: Performed By: #### P SASC #### [facility] [address] [place] [address] Dr. Shabnam Rae Platelet mean volume (Bld) [Entitic vol] 9.8 fL Normal 9.5-13.[address] [facility] Comment on above: Performed By: #### P SASC #### [facility] [address] [place] [address] Dr. Shabnam Rae PLT 203 103/ul Normal 150-[address] [facility] Comment on above: Performed By: #### P SASC #### [facility] [address] [place] [address] Dr. Shabnam Rae RBC 5.78 106/ul Normal 4.70-6.[address] [facility] Comment on above: Performed By: #### P SASC #### [facility] [address] [place] [address] Dr. Shabnam Rae WBC 6.3 103/ul Normal 4.0-11.0 [facility] Comment on above: Performed By: #### P SASC #### [facility] [address] [address] [address] Shabnam Rae FREE THYROXINE INDEX T7on FTI 2.05 Normal 1.30-4.50 [facility] Comment on above: Performed By: #### T SH, CMP, LIPID, T7, URIC #### [facility] [address] [address] [address] Shabnam Rae T3U 33.0 % Normal 33.0-40.0 [facility] Comment on above: Performed By: #### T SH, CMP, LIPID, T7, URIC #### [facility] [address] [place] [address] Dr. Shabnam Rae T4 [Mass/Vol] 6.20 ug/dL Normal 4.50-12.10 [facility] Comment on above: Performed By: #### T SH, CMP, LIPID, T7, URIC #### [facility] [address] [address] [address] Shabnam Rae GLYCOHEMOGLOBIN A1Con 2022 ADA RECOMMENDATION SEE BELOW Normal [facility] Comment on above: Result Comment: ADA RECOMMENDED LIMIT 4.0 - 6.0 ADA THERAPEUTIC TARGET < 7.0 ACTION SUGGESTED > 7.0 Performed By: #### P SASC #### [facility] [address] [address] [address] Shabnam Rae Glucose [Mass/Vol] 114 mg/dL Normal [facility] Comment on above: Performed By: #### P SASC #### [facility] [address] [address] [address] Shabnam Rae HbA1c (Bld) [Mass fraction] 5.6 % Normal 4.5-6.2 [facility] Comment on above: Performed By: #### P SASC #### [facility] [address] [place] [address] Dr. Shabnam Rae LIPID PROFILEon 12-01-2022 CHOL-HDL RATIO NORM SEE BELOW Normal [facility] Comment on above: Result Comment: 3.3 - 4.4 LOW RISK 4.4 - 7.1 AVERAGE RISK 7.1 - 11.0 MODERATE RISK >11.0 HIGH RISK Performed By: #### T SH, CMP, LIPID, T7, URIC #### [facility] [address] [address] [address] Shabnam Rae Cholesterol [Mass/Vol] 176 mg/dL Normal <=200 [facility] Comment on above: Performed By: #### T SH, CMP, LIPID, T7, URIC #### [facility] [address] [address] [address] Shabnam Rae Cholesterol in HDL [Mass/Vol] 48 mg/dL Normal 40-60 [facility] Comment on above: Performed By: #### T SH, CMP, LIPID, T7, URIC #### [facility] [address] [place] [address] Dr. Shabnam Rae Cholesterol in LDL [Mass/Vol] 108.2 mg/dL Normal [facility] Comment on above: Performed By: #### T SH, CMP, LIPID, T7, URIC #### [facility] [address] [address] [address] Shabnam Rae Cholesterol.total/Ch olesterol in HDL [Mass ratio] 3.7 {ratio} Normal [facility] Comment on above: Performed By: #### T SH, CMP, LIPID, T7, URIC #### [facility] [address] [place] [address] Dr. Shabnam Rae HDL NORMAL > or = 60 mg/dl - LOW CARDIOVASCULAR RISK <40 mg/dl - HIGH CARDIOVASCULAR RISK Normal [facility] Comment on above: Performed By: #### T SH, CMP, LIPID, T7, URIC #### [facility] [address] [place] [address] Dr. Shabnam Rae LDL CALC NORMAL SEE BELOW Normal [facility] Comment on above: Result Comment: <100 mg/dl OPTIMAL 100 - 129 mg/dl NEAR OR ABOVE OPTIMAL 130 - 159 mg/dl BORDERLINE HIGH 160 - 189 mg/dl HIGH >190 mg/dl VERY HIGH Performed By: #### T SH, CMP, LIPID, T7, URIC #### [facility] [address] [address] [address] Shabnam Rae Triglyceride [Mass/Vol] 99 mg/dL Normal <=150 [facility] Comment on above: Performed By: #### T SH, CMP, LIPID, T7, URIC #### [facility] [address] [address] [address] Shabnam Rae VLDL CALC 19.8 mg/dL Normal [facility] Comment on above: Performed By: #### T SH, CMP, LIPID, T7, URIC #### [facility] [address] [address] [address] Shabnam Rae PROF 14(COMP METB)on 023 Albumin [Mass/Vol] 4.1 g/dL Normal 3.4-5.0 [facility] Comment on above: Performed By: #### T SH, CMP, LIPID, T7, URIC #### [facility] [address] [address] [address] Shabnam Rae Albumin/Globulin [Mass ratio] 1.1 {ratio} Normal [facility] Comment on above: Performed By: #### T SH, CMP, LIPID, T7, URIC #### [facility] [address] [address] [address] Shabnam Rae ALP [Catalytic activity/Vol] 101 U/L Normal 46-116 [facility] Comment on above: Performed By: #### T SH, CMP, LIPID, T7, URIC #### [facility] [address] [address] [address] Shabnam Rae ALT [Catalytic activity/Vol] 26 U/L Normal 16-63 [facility] Comment on above: Performed By: #### T SH, CMP, LIPID, T7, URIC #### [facility] [address] [address] [address] Shabnam Rae Anion gap [Moles/Vol] 10.1 mmol/L Normal [facility] Comment on above: Performed By: #### T SH, CMP, LIPID, T7, URIC #### [facility] [address] [address] [address] Shabnam Rae AST [Catalytic activity/Vol] 19 U/L Normal 15-37 [facility] Comment on above: Performed By: #### T SH, CMP, LIPID, T7, URIC #### [facility] [address] [place] [address] Dr. Shabnam Rae Bilirubin [Mass/Vol] 0.8 mg/dL Normal 0.2-1.0 [facility] Comment on above: Performed By: #### T SH, CMP, LIPID, T7, URIC #### [facility] [address] [place] [address] Dr. Shabnam Rae Calcium [Mass/Vol] 9.5 mg/dL Normal 8.5-10.1 [facility] Comment on above: Performed By: #### T SH, CMP, LIPID, T7, URIC #### [facility] [address] [place] [address] Dr. Shabnam Rae Chloride [Moles/Vol] 102 mmol/L Normal 98-107 [facility] Comment on above: Performed By: #### T SH, CMP, LIPID, T7, URIC #### [facility] [address] [place] [address] Dr. Shabnam Rae CO2 [Moles/Vol] 32.4 mmol/L Critically high 21.0-32.0 [facility] Comment on above: Performed By: #### T SH, CMP, LIPID, T7, URIC #### [facility] [address] [place] [address] Dr. Shabanm Rae Creatinine [Mass/Vol] 1.00 mg/dL Normal 0.70-1.30 [facility] Comment on above: Performed By: #### T SH, CMP, LIPID, T7, URIC #### [facility] [address] [place] [address] Dr. Shabnam Rae EGFR-AF SAUDI ARABIAN >60 Normal >=60 [facility] Comment on above: Performed By: #### T SH, CMP, LIPID, T7, URIC #### [facility] [address] [place] [address] Dr. Shabnam Rae EGFR-NON AF SAUDI ARABIAN >60 Normal >=[address] [facility] Comment on above: Performed By: #### T SH, CMP, LIPID, T7, URIC #### [facility] [address] [place] [address] Dr. Shabnam Rae Globulin (S) [Mass/Vol] 3.8 g/dL Normal [facility] Comment on above: Performed By: #### T SH, CMP, LIPID, T7, URIC #### [facility] [address] [place] [address] Dr. Shabnam Rae Glucose [Mass/Vol] 94 mg/dL Normal 74-106 [facility] Comment on above: Performed By: #### T SH, CMP, LIPID, T7, URIC #### [facility] [address] [place] [address] Dr. Shabnam Rae Potassium [Moles/Vol] 3.5 mmol/L Normal 3.5-5.1 [facility] Comment on above: Performed By: #### T SH, CMP, LIPID, T7, URIC #### [facility] [address] [place] [address] Dr. Shabnam Rae Protein [Mass/Vol] 7.9 g/dL Normal 6.4-8.2 [facility] Comment on above: Performed By: #### T SH, CMP, LIPID, T7, URIC #### [facility] [address] [place] [address] Dr. Shabnam Rae Sodium [Moles/Vol] 141 mmol/L Normal 136-145 [facility] Comment on above: Performed By: #### T SH, CMP, LIPID, T7, URIC #### [facility] [address] [place] [address] Dr. Shabnam Rae Urea nitrogen [Mass/Vol] 15.0 mg/dL Normal 7.0-18.[address] [facility] Comment on above: Performed By: #### T SH, CMP, LIPID, T7, URIC #### [facility] [address] [place] [address] Dr. Shabnam Rae Urea nitrogen/Creatinine [Mass ratio] 15.0 mg/mg Normal [facility] Comment on above: Performed By: #### T SH, CMP, LIPID, T7, URIC #### [facility] [address] [place] [address] Dr. Shabnam Rae TSHon 12-01-2022 TSH 1.504 uIU/mL Normal 0.358-3.740 [facility] Comment on above: Performed By: #### T SH, CMP, LIPID, T7, URIC #### [facility] [address] [place] [address] Dr. Shabnam Rae URIC ACID SERUMon 12-01-2022 Urate [Mass/Vol] 6.9 mg/dL Normal 3.5-7.[address] [facility] Comment on above: Performed By: #### T SH, CMP, LIPID, T7, URIC #### [facility] [address] [place] [address] Dr. Shabnam Rae TESTOSTERONE, TOTALon 2021 Testosterone [Mass/Vol] 244 ng/dL Critically low 264-916 [facility] Comment on above: Result Comment: Adul t male reference interval is based on a population of healthy nonobese males (BMI <30) between 19 and 39 years old. Dima, et.al. JCEM 2017,102;4841-1127. PMID: 02418494. Performed By: #### P SAFREE #### [facility] [address] [place] [address] Dr. Shabnam Rae TESTOSTERONE, FREE,DIRECT, T OTALon 03-16-2022 Free Testosterone(Direct) 2.1 pg/mL Critically low 7.2-24.0 [facility] Comment on above: Result Comment: Perf ormed at: BN Performed By: #### C VDTBH #### [facility] [address] [place] [address] Dr. Shabnam Rae Testosterone [Mass/Vol] 252 ng/dL Critically low 264-[address] [facility] Comment on above: Result Comment: Adul t male reference interval is based on a population of healthy nonobese males (BMI <30) between 19 and 39 years old. Travison, et.al. JCEM 2017,102;9589-6990. PMID: [id number]. Performed at: CB Performed By: #### C VDTBH #### [facility] [address] [address] [address] Shabnam Rae Formson 02-26-2022 Forms [id number] 7#1.00CD:127 Normal [facility] Screenson 02-26-2022 Screens [id number] 7#1.00CD:127 Normal [facility] Screens [id number] #1.00CD:127 Normal [facility] Urology Office/Clinic Noteon 02-26-2022 Urology [...] urinary symptoms. Follow-up With When Contact Information Mitchel DELGADO, Viola Cohn, URL, URO Additional Instructions: Patient Education Hydrocele, Adult I, Helen Leung, personally scribed for Dr. Grullon on 02/25/2022 11:15:58. . Documentation recorded by the scribe, Helen Leung, accurately reflects the services(s) I performed and decisions made by me. Authenticated by Dr. Grullon on 02/26/2022 00:19:46. Problem List/Past Medical History Ongoing No qualifying data (more content not included)... Normal [facility] Comment on [...] Urnls Dip Stick Auto w/o Microscopy POC 65993 Your Care Team Attending Physician - Viola [...] Following Appointments Follow Up with Mitchel DELGADO, CIHNA Gregorio, URO When: Where: Test Results Urnls Dip Stick Auto w/o Microscopy POC 71822 (02/25/2022) Bilirubin Urine Dipstick - Negative Blood Urine Dipstick - Negative Glucose Urine Dipstick - Negative Ketones Urine Dipstick - Negative Leukocytes Urine Dipstick - Negative Nitrite Urine Dipstick - Negative Protein Urine Dipstick - Negative Specific [place] Urine Dipstick - >=1.030 Urine Appearance Urine [...] the hydrocele for any changes. ? Take svxo-yay-sffdzzv and prescription medicines only as told by [...] t (more content not included)... Normal [facility] Patient Educationon 02-26-20 Patient Education [...] the hydrocele for any changes. ? Take uera-zhj-kkjvfbj and prescription medicines only as told by [...] 02/17/2011 Document Revised: 09/10/2018 Document Reviewed: 09/10/2018 [employer] Patient Education ? 2019 [employer] Normal [facility] ED Note-Physicianon 02-04-20 22 ED Note-Physician [id number] 62#1.00CD:127 Normal [facility] RAD - Ultrasound Reporton RAD - Ultrasound Report [id number] #1.00CD:127 Normal [facility] RAD - CT Reporton 02-02-2022 RAD - CT Report [id number] 55#1.00CD:127 Normal [facility] RAD - CT Report [id number] 75#1.00CD:127 Normal [facility] CBC AUTO DIFFon 01-05-2022 BASO # 0.0 103/ul Normal 0.0-0.1 [facility] Comment on above: Performed By: #### P SAFREE #### [facility] [address] [place] [address] Dr. Shabnam Rae Basophils/100 WBC (Bld) 0.6 % Normal 0.2-2.0 [facility] Comment on above: Performed By: #### P SAFREE #### [facility] [address] [place] [address] Dr. Shabnam Rae EO # 0.1 103/ul Normal 0.0-0.7 [facility] Comment on above: Performed By: #### P SAFREE #### [facility] [address] [place] [address] Dr. Shabnam Rae Eosinophils/100 WBC (Bld) 2.1 % Normal 0.9-7.0 [facility] Comment on above: Performed By: #### P SAFREE #### [facility] [address] [place] [address] Dr. Shabnam Rae Erythrocyte distribution width (RBC) [Ratio] 13.1 % Normal 11.0-15.0 [facility] Comment on above: Performed By: #### P SAFREE #### [facility] [address] [place] [address] Dr. Shabnam Rae Hematocrit (Bld) [Volume fraction] 43.1 % Normal 42.0-54.0 [facility] Comment on above: Performed By: #### P SAFREE #### [facility] [address] [place] [address] Dr. Shabnam Rae Hemoglobin (Bld) [Mass/Vol] 13.7 g/dL Critically low 14.0-18.0 [facility] Comment on above: Performed By: #### P SAFREE #### [facility] [address] [address] [address] Shabnam Rae IG # 0.04 10e3/ul Critically high 0.00-0.03 [facility] Comment on above: Performed By: #### P SAFREE #### [facility] [address] [place] [address] Dr. Shabnam Rae IG % 0.6 % Critically high 0.0-0.5 [facility] Comment on above: Performed By: #### P SAFREE #### [facility] [address] [place] [address] Dr. Shabnam Rae LYMPH # 0.9 103/ul Critically low 1.2-3.8 [facility] Comment on above: Performed By: #### P SAFREE #### [facility] [address] [place] [address] Dr. Shabnam Rae Lymphocytes/100 WBC (Bld) 13.1 % Critically low 20.5-60.0 [facility] Comment on above: Performed By: #### P SAFREE #### [facility] [address] [place] [address] Dr. Shabnam Rae MANUAL DIFF REQ NO Normal [facility] Comment on above: Performed By: #### P SAFREE #### [facility] [address] [place] [address] Dr. Shabnam Rae MCH (RBC) [Entitic mass] 29.5 pg Normal 25.9-34.0 [facility] Comment on above: Performed By: #### P SAFREE #### [facility] [address] [place] [address] Dr. Shabnam Rae MCHC (RBC) [Mass/Vol] 31.8 g/dL Normal 29.9-35.[address] [facility] Comment on above: Performed By: #### P SAFREE #### [facility] [address] [place] [address] Dr. Shabnam Rae MCV (RBC) [Entitic vol] 92.9 fL Normal 80.0-94.0 [facility] Comment on above: Performed By: #### P SAFREE #### [facility] [address] [address] [address] Shabnam Rae MONO # 0.4 103/ul Normal 0.3-0.8 [facility] Comment on above: Performed By: #### P SAFREE #### [facility] [address] [place] [address] Dr. Shabnam Rae Monocytes/100 WBC (Bld) 5.4 % Normal 1.7-12.0 [facility] Comment on above: Performed By: #### P SAFREE #### [facility] [address] [place] [address] Dr. Shabnam Rae NEUT # 5.2 103/ul Normal 1.4-6.[address] [facility] Comment on above: Performed By: #### P SAFREE #### [facility] [address] [place] [address] Dr. Shabnam Rae Neutrophils/100 WBC (Bld) 78.2 % Critically high 43.0-75.0 [facility] Comment on above: Performed By: #### P SAFREE #### [facility] [address] [place] [address] Dr. Shabnam Rae Platelet mean volume (Bld) [Entitic vol] 10.9 fL Normal 9.5-13.[address] [facility] Comment on above: Performed By: #### P SAFREE #### [facility] [address] [place] [address] Dr. Shabnam Rae PLT 153 103/ul Normal 150-[address] [facility] Comment on above: Performed By: #### P SAFREE #### [facility] [address] [place] [address] Dr. Shabnam Rae RBC 4.64 106/ul Critically low 4.70-6.10 [facility] Comment on above: Performed By: #### P SAFREE #### [facility] [address] [place] [address] Dr. Shabnam Rae WBC 6.6 103/ul Normal 4.0-11.[address] [facility] Comment on above: Performed By: #### P SAFREE #### [facility] [address] [place] [address] Dr. Shabnam Rae CRPon 01-05-2022 CRP 0.9 mg/dL Normal <=1.0 [facility] Comment on above: Performed By: #### P SAFREE #### [facility] [address] [place] [address] Dr. Shabnam Rae PROF 14(COMP METB)on 022 Albumin [Mass/Vol] 3.6 g/dL Normal 3.4-5.0 [facility] Comment on above: Performed By: #### P SAFREE #### [facility] [address] [place] [address] Dr. Shabnam Rae Albumin/Globulin [Mass ratio] 1.0 {ratio} Normal [facility] Comment on above: Performed By: #### P SAFREE #### [facility] [address] [place] [address] Dr. Shabnam Rae ALP [Catalytic activity/Vol] 114 U/L Normal 46-116 [facility] Comment on above: Performed By: #### P SAFREE #### [facility] [address] [place] [address] Dr. Shabnam Rae ALT [Catalytic activity/Vol] 26 U/L Normal 16-63 [facility] Comment on above: Performed By: #### P SAFREE #### [facility] [address] [place] [address] Dr. Shabnam Rae Anion gap [Moles/Vol] 9.3 mmol/L Normal [facility] Comment on above: Performed By: #### P SAFREE #### [facility] [address] [place] [address] Dr. Shabnam Rae AST [Catalytic activity/Vol] 19 U/L Normal 15-37 [facility] Comment on above: Performed By: #### P SAFREE #### [facility] [address] [place] [address] Dr. Shabnam Rae Bilirubin [Mass/Vol] 0.5 mg/dL Normal 0.2-1.0 [facility] Comment on above: Performed By: #### P SAFREE #### [facility] [address] [place] [address] Dr. Shabnam Rae Calcium [Mass/Vol] 8.9 mg/dL Normal 8.5-10.1 [facility] Comment on above: Performed By: #### P SAFREE #### [facility] [address] [place] [address] Dr. Shabnam Rae Chloride [Moles/Vol] 106 mmol/L Normal 98-107 [facility] Comment on above: Performed By: #### P SAFREE #### [facility] [address] [address] [address] Shabnam Rae CO2 [Moles/Vol] 30.7 mmol/L Normal 21.0-32.[address] [facility] Comment on above: Performed By: #### P SAFREE #### [facility] [address] [place] [address] Dr. Shabnam Rae Creatinine [Mass/Vol] 1.15 mg/dL Normal 0.70-1.30 [facility] Comment on above: Performed By: #### P SAFREE #### [facility] [address] [place] [address] Dr. Shabnam Rae EGFR-AF SAUDI ARABIAN >60 Normal >=[address] [facility] Comment on above: Performed By: #### P SAFREE #### [facility] [address] [place] [address] Dr. Shabnam Rae EGFR-NON AF SAUDI ARABIAN >60 Normal >=60 [facility] Comment on above: Performed By: #### P SAFREE #### [facility] [address] [place] [address] Dr. Shabnam Rea Globulin (S) [Mass/Vol] 3.6 g/dL Normal [facility] Comment on above: Performed By: #### P SAFREE #### [facility] [address] [place] [address] Dr. Shabnam Rae Glucose [Mass/Vol] 117 mg/dL Critically high 74-106 [facility] Comment on above: Performed By: #### P SAFREE #### [facility] [address] [place] [address] Dr. Shabnam Rae Potassium [Moles/Vol] 4.0 mmol/L Normal 3.5-5.1 [facility] Comment on above: Performed By: #### P SAFREE #### [facility] [address] [address] [address] Shabnam Rae Protein [Mass/Vol] 7.2 g/dL Normal 6.1-8.2 [facility] Comment on above: Performed By: #### P SAFREE #### [facility] [address] [place] [address] Dr. Shabnam Rae Sodium [Moles/Vol] 142 mmol/L Normal 136-145 [facility] Comment on above: Performed By: #### P SAFREE #### [facility] [address] [place] [address] Dr. Shabnam Rae Urea nitrogen [Mass/Vol] 15.0 mg/dL Normal 7.0-18.0 [facility] Comment on above: Performed By: #### P SAFREE #### [facility] [address] [place] [address] Dr. Shabnam Rae Urea nitrogen/Creatinine [Mass ratio] 13.0 mg/mg Normal [facility] Comment on above: Performed By: #### P SAFREE #### [facility] [address] [place] [address] Dr. Shabnam Rae US SCROTUMon 01-05-2022 US [...] ALVINA CAICEDO Date: 2022-01-05 08:48 Normal [facility] CBC AUTO DIFFon 01-04-2022 BASO # 0.1 103/ul Normal 0.0-0.[address] [facility] Comment on above: Performed By: #### C BC #### [facility] [address] [place] [address] Dr. Shabnam Rae Basophils/100 WBC (Bld) 0.8 % Normal 0.2-2.0 [facility] Comment on above: Performed By: #### C BC #### [facility] [address] [place] [address] Dr. Shabnam Rae EO # 0.1 103/ul Normal 0.0-0.[address] [facility] Comment on above: Performed By: #### C BC #### [facility] [address] [place] [address] Dr. Shabnam Rae Eosinophils/100 WBC (Bld) 1.5 % Normal 0.9-7.0 [facility] Comment on above: Performed By: #### C BC #### [facility] [address] [place] [address] Dr. Shabnam Rae Erythrocyte distribution width (RBC) [Ratio] 12.8 % Normal 11.0-15.0 [facility] Comment on above: Performed By: #### C BC #### [facility] [address] [place] [address] Dr. Shabnam Rae Hematocrit (Bld) [Volume fraction] 40.3 % Critically low 42.0-54.0 [facility] Comment on above: Performed By: #### C BC #### [facility] [address] [place] [address] Dr. Shabnam Rae Hemoglobin (Bld) [Mass/Vol] 13.4 g/dL Critically low 14.0-18.0 [facility] Comment on above: Performed By: #### C BC #### [facility] [address] [place] [address] Dr. Shabnam Rae IG # 0.03 10e3/ul Normal 0.00-0.03 [facility] Comment on above: Performed By: #### C BC #### [facility] [address] [place] [address] Dr. Shabnam Rae IG % 0.5 % Normal 0.0-0.5 [facility] Comment on above: Performed By: #### C BC #### [facility] [address] [place] [address] Dr. Shabnam Rae LYMPH # 1.0 103/ul Critically low 1.2-3.8 [facility] Comment on above: Performed By: #### C BC #### [facility] [address] [place] [address] Dr. Shabnam Rae Lymphocytes/100 WBC (Bld) 16.4 % Critically low 20.5-60.0 [facility] Comment on above: Performed By: #### C BC #### [facility] [address] [place] [address] Dr. Shabnam Rae MANUAL DIFF REQ NO Normal [facility] Comment on above: Performed By: #### C BC #### [facility] [address] [place] [address] Dr. Shabnam Rae MCH (RBC) [Entitic mass] 29.5 pg Normal 25.9-34.0 [facility] Comment on above: Performed By: #### C BC #### [facility] [address] [place] [address] Dr. Shabnam Rae MCHC (RBC) [Mass/Vol] 33.3 g/dL Normal 29.9-35.2 [facility] Comment on above: Performed By: #### C BC #### [facility] [address] [place] [address] Dr. Shabnam Rae MCV (RBC) [Entitic vol] 88.8 fL Normal 80.0-94.0 [facility] Comment on above: Performed By: #### C BC #### [facility] [address] [place] [address] Dr. Shabnam Rae MONO # 0.6 103/ul Normal 0.3-0.8 [facility] Comment on above: Performed By: #### C BC #### [facility] [address] [place] [address] Dr. Shabnam Rae Monocytes/100 WBC (Bld) 9.6 % Normal 1.7-12.0 [facility] Comment on above: Performed By: #### C BC #### [facility] [address] [place] [address] Dr. Shabnam Rae NEUT # 4.4 103/ul Normal 1.4-6.5 [facility] Comment on above: Performed By: #### C BC #### [facility] [address] [place] [address] Dr. Shabnam Rae Neutrophils/100 WBC (Bld) 71.2 % Normal 43.0-75.0 [facility] Comment on above: Performed By: #### C BC #### [facility] [address] [place] [address] Dr. Shabnam Rae Platelet mean volume (Bld) [Entitic vol] 10.8 fL Normal 9.5-13.5 [facility] Comment on above: Performed By: #### C BC #### [facility] [facility] [address] [place] [address] Dr. Shabnam Rae PLT 158 103/ul Normal 150-[address] [facility] Comment on above: Performed By: #### C BC #### [facility] [address] [place] [address] Dr. Shabnam Rae RBC 4.54 106/ul Critically low 4.70-6.10 [facility] Comment on above: Performed By: #### C BC #### [facility] [address] [place] [address] Dr. Shabnam Rae WBC 6.2 103/ul Normal 4.0-11.[address] [facility] Comment on above: Performed By: #### C #### [facility] [address] [address] [address] ABD/PELV W CONon [...] MAYRA BERNAL Date: 2022-01-04 05:19 Normal [address] [facility] CT PELVIS WO CONon 2 CT [...] scrotal ultrasound recommended. Electronically authenticated by: MANUEL BRENNANH Date: 2022-01-04 08:54 Normal [address] [facility] CULTURE URINEon 01-04-2022 CULTURE URINE Culture Observations: No growth Normal [facility] Comment on above: Performed By: #### P [facility] #### [facility] [address] [place] [address] Dr. Shabnam Rae Covid-19 PCR ([facility])on 12-13 SARS-CoV-2 (COVID-19) RNA ELIJAH+probe Ql (Unsp spec) Not detected Normal NOT DETECTED [facility] Comment on above: Result Comment: When diagnostic testing is negative, the possibility of a false negative should be considered in the context of a patient's recent exposures and the presence of clinical signs and symptoms consistent with SARS-CoV-2. This test is not yet approved or cleared by the [place] Food and Drug Administration (FDA). This test was developed by [employer], [place], [place]. The performance characteristics of this test were validated by The [facility]. The results are not intended to be used as the sole means for clinical diagnosis or patient management decisions. The [facility] is authorized under Clinical Laboratory [...] for this test is supported by the [place] of Health and Human Service's declaration that [...] used). Performed By: #### C VDTBH #### [facility] [address] [place] [address] Dr. Shabnam Rae ER URINE PROFILEon 2 Bilirubin Ql (U) Negative Normal NEGATIVE The [facility] Comment on above: Performed By: #### P SASC #### [facility] [address] [place] [address] Dr. Shabnam Rae Clarity (U) CLEAR Normal CLEAR [facility] Comment on above: Performed By: #### P SASC #### [facility] [address] [place] [address] Dr. Shabnam Rae Color (U) YELLOW Normal YELLOW [facility] Comment on above: Performed By: #### P SASC #### [facility] [address] [place] [address] Dr. Shabnam Rae ERUAHD A micrscopic examination will be performed if indicated. Normal [facility] Comment on above: Performed By: #### P SASC #### [facility] [address] [address] [address] Shabnam Rae Glucose Ql (U) Negative Normal NEGATIVE [facility] Comment on above: Performed By: #### P SASC #### [facility] [address] [address] [address] Shabnam Rae Hemoglobin Ql (U) Negative Normal NEGATIVE [facility] Comment on above: Performed By: #### P SASC #### [facility] [address] [address] [address] Shabnam Rae Ketones Ql (U) Negative Normal NEGATIVE [facility] Comment on above: Performed By: #### P SASC #### [facility] [address] [place] [address] Dr. Shabnam Rae LEUKOCYTES Negative Normal NEGATIVE [facility] Comment on above: Performed By: #### P SASC #### [facility] [address] [place] [address] Dr. Shabnam Rae Nitrite Ql (U) Negative Normal NEGATIVE [facility] Comment on above: Performed By: #### P SASC #### [facility] [address] [place] [address] Dr. Shabnam Rae pH (U) 6.5 [pH] Normal 5-9 [facility] Comment on above: Performed By: #### P SASC #### [facility] [address] [place] [address] Dr. Shabnam Rae SPEC GRAVITY 1.010 Normal 1.005-<=1.025 [facility] Comment on above: Performed By: #### P SASC #### [facility] [address] [place] [address] Dr. Shabnam Rae UA PROTEIN Negative Normal NEGATIVE/ TRACE [facility] Comment on above: Performed By: #### P SASC #### [facility] [address] [place] [address] Dr. Shabnam Rae UR MICRO IND NOT INDICATED Normal [facility] Comment on above: Performed By: #### P SASC #### [facility] [address] [place] [address] Dr. Shabnam Rae Urobilinogen Qn (U) 0.2 {Sarai'U}/dL Normal 0.2 - 1. 0 [facility] Comment on above: Performed By: #### P SASC #### [facility] [address] [place] [address] Dr. Shabnam Rae LACTATE/LACTIC ACIDon 2021 Lactate [Moles/Vol] 1.0 mmol/L Normal 0.4-2.0 [facility] Comment on above: Performed By: #### P SASC #### [facility] [address] [place] [address] Dr. Shabnam Rae PROF CHEM 8 (BAS METB)on Anion gap [Moles/Vol] 10.0 mmol/L Normal [facility] Comment on above: Performed By: #### B MP #### [facility] [address] [place] [address] Dr. Shabnam Rae Calcium [Mass/Vol] 8.5 mg/dL Normal 8.5-10.1 [facility] Comment on above: Performed By: #### B MP #### [facility] [address] [place] [address] Dr. Shabnam Rae Chloride [Moles/Vol] 103 mmol/L Normal 98-107 [facility] Comment on above: Performed By: #### B MP #### [facility] [address] [place] [address] Dr. Shabnam Rae CO2 [Moles/Vol] 29.2 mmol/L Normal 21.0-32.0 [facility] Comment on above: Performed By: #### B MP #### [facility] [address] [place] [address] Dr. Shabnam Rae Creatinine [Mass/Vol] 1.25 mg/dL Normal 0.70-1.30 [facility] Comment on above: Performed By: #### B MP #### [facility] [address] [place] [address] Dr. Shabnam Rae EGFR-AF SAUDI ARABIAN >60 Normal >=60 [facility] Comment on above: Performed By: #### B MP #### [facility] [address] [address] [address] Shabnam Rae EGFR-NON AF SAUDI ARABIAN >60 Normal >=60 [facility] Comment on above: Performed By: #### B MP #### [facility] [address] [address] [address] Shabnam Rae Glucose [Mass/Vol] 132 mg/dL Critically high 74-106 T [facility] Comment on above: Performed By: #### B MP #### [facility] [address] [address] [address] Shabnam Rae Potassium [Moles/Vol] 3.2 mmol/L Critically low 3.5-5.1 [facility] Comment on above: Performed By: #### B MP #### [facility] [address] [address] [address] Shabnam Rae Sodium [Moles/Vol] 139 mmol/L Normal 136-145 [facility] Comment on above: Performed By: #### B MP #### [facility] [address] [address] [address] Shabnam Rae Urea nitrogen [Mass/Vol] 19.0 mg/dL Critically high 7.0-18.0 [facility] Comment on above: Performed By: #### B MP #### [facility] [address] [place] [address] Dr. Shabnam Rae Urea nitrogen/Creatinine [Mass ratio] 15.2 mg/mg Normal [facility] Comment on above: Performed By: #### B MP #### [facility] [address] [place] [address] Dr. Shabnam Rae CERVICAL SPINE 2 OR [address] [facility] 07-06-2019 CERVICAL SPINE 2 OR 3 S [facility] Department of Radiology [address] [place] [address] Patient Name: MATTY GARCES : 1970 Sex: M Age: Race: White Pt. Location: 85 Patient Status: O Ordered Date: 07/06/2019 9:10:00 AM Completed Date: 07/06/2019 09:21 AM Requesting Provider: LUCIANO VIEIRA Attending Provider: LUCIANO VIEIRA Report Copy To: VENUS MENDEZ Signs & Symptoms: M48.02 Spinal stenosis, cervical region I10 History: Barto Comments: , STAT READ , STAT READ [...] described to be protruding anteriorly on CT January 19 is not clearly visualized on lateral view due to overlying soft tissue. * Alignment appears appropriate. Approved by:Radha Ballard on 07/06/2019 11:31 AM EDT. I, Bernice Hoyt, have reviewed the images and report and concur with these findings. Electronically signed by:Bernice Hoyt. Transcribed by: [email or web address], User Resident: RADHA CHIN Electronically Signed by: BERNICE HOYT @ 07/06/2019 08:52 PM I personally read this/these film(s) with this resident Normal [facility] Comment on above: Order Comment: , STA T READ , STAT READ , , , Ordering Provider - LUCIANO VIEIRA MD , CERVICAL SPINE 2 OR [address] [facility] 04-06-2019 CERVICAL SPINE 2 OR [address] [facility] Department of Radiology [address] [place] [id number] Patient Name: MATTY GARCES : 1970 [...] CERVICAL SPINE 2 OR 3 [facility] 04/06/2019 7:28 AM EDT SIGNS AND SYMPTOMS: [...] study. Electronically signed by:Bernice Hoyt. Transcribed by: [email or web address], User Resident: Electronically Signed by: BERNICE HOYT @ 04/06/2019 04:40 PM Normal [facility] Comment on above: Order Comment: AP/LA T, ODONTOID PLEASE DO SWIMMER'S VIEW FOLLOW UP HARDWARE AND ALIGNMENT, S/P ACDF, RECENT FALLS CERVICAL SPINE 2 OR [address] [facility] 02-17-2019 CERVICAL SPINE 2 OR [address] [facility] Department of Radiology [address] [place] [id number] Patient Name: MATTY GARCES : 1970 [...] ALIGNMENT Exam: CERVICAL SPINE 2 OR 3 S CERVICAL SPINE 2 OR 3 [facility] 02/17/2019 [...] findings. Electronically signed by:Bella King. Transcribed by: [email or web address], User Resident: EMILE TINAJERO Electronically Signed by: BELLA KING @ 02/20/2019 11:53 AM I personally read this/these film(s) with this resident Normal [facility] Comment on above: Order Comment: C-SPI NE 2 OR 3 VIEW POSTOP, EVALUATION HARDWARE AN ALIGNMENT BASIC METABOLIC PANELon 05-2 Calcium [Mass/Vol] 9.2 mg/dL Normal 8.6-10.3 [facility] Comment on above: Order Comment: No: D o not add to previous draw Performed By: #### 5 0103 #### [facility] [address] [place] [address], [place] Chloride [Moles/Vol] 101 mmol/L Normal 98-107 [facility] Comment on above: Order Comment: No: D o not add to previous draw Performed By: #### 5 0103 #### [facility] [address] [place] [address], [place] CO2 [Moles/Vol] 26 mmol/L Normal 21-31 [facility] Comment on above: Order Comment: No: D o not add to previous draw Performed By: #### 5 0103 #### [facility] [address] [place] [address], [place] Creatinine [Mass/Vol] 1.02 mg/dL Normal 0.70-1.30 [facility] Comment on above: Order Comment: No: D o not add to previous draw Performed By: #### 5 0103 #### [facility] [address] [place] [address], [place] GFR/1.73 sq M predicted among blacks MDRD (S/P/Bld) [Vol rate/Area] mL/min/{1.73_m2} Normal >60 [facility] Comment on above: Order Comment: No: D o not add to previous draw Performed By: #### 5 0103 #### [facility] [address] [place] [address], [place] GFR/1.73 sq M predicted among non-blacks MDRD (S/P/Bld) [Vol rate/Area] mL/min/{1.73_m2} Normal >60 [facility] Comment on above: Order Comment: No: D o not add to previous draw Performed By: #### 5 0103 #### [facility] [address] [place] [address], [place] Glucose [Mass/Vol] 124 mg/dL High 70-100 The [facility] Comment on above: Order Comment: No: D o not add to previous draw Performed By: #### 5 0103 #### [facility] [address] [place] [address], [place] Potassium [Moles/Vol] 3.9 mmol/L Normal 3.5-5.1 [facility] Comment on above: Order Comment: No: D o not add to previous draw Performed By: #### 5 0103 #### [facility] [address] [place] [address], [place] Sodium [Moles/Vol] 137 mmol/L Normal 136-145 [facility] Comment on above: Order Comment: No: D o not add to previous draw Performed By: #### 5 0103 #### [facility] [address] [place] [address], [facility] Urea nitrogen [Mass/Vol] 15 mg/dL Normal 7-25 [facility] Comment on above: Order Comment: No: D o not add to previous draw Performed By: #### 5 3 #### [facility] [address] [place] [address], [facility] CBC COMPLETE BLOOD COUNTon 0 - Erythrocyte distribution width (RBC) [Ratio] 13.9 % Normal 11.5-15.0 [facility] Comment on above: Order Comment: No: D o not add to previous draw Performed By: #### 5 0103 #### [facility] [address] [place] [address], [facility] Hematocrit (Bld) [Volume fraction] 50.0 % Normal 39.0-50.0 [facility] Comment on above: Order Comment: No: D o not add to previous draw Performed By: #### 5 0103 #### [facility] [address] Hemoglobin (Bld) [Mass/Vol] 16.0 g/dL Normal 13.0-17.0 [facility] Comment on above: Order Comment: No: D o not add to previous draw Performed By: #### 5 0103 #### [facility] [address] [place] [address], [facility] MCH (RBC) [Entitic mass] 27.5 pg Normal 27.0-33.0 [facility] Comment on above: Order Comment: No: D o not add to previous draw Performed By: #### 5 0103 #### [facility] [address] MCHC (RBC) [Mass/Vol] 32.0 g/dL Normal 32.0-35.0 [facility] Comment on above: Order Comment: No: D o not add to previous draw Performed By: #### 5 0103 #### [facility] [address] [place] [address], [facility] MCV (RBC) [Entitic vol] 85.9 fL Normal 82.0-98.0 [facility] Comment on above: Order Comment: No: D o not add to previous draw Performed By: #### 5 3 #### [facility] [address] Nucleated RBC/100 WBC (Bld) [Ratio] 0 % Normal 0-0 [facility] Comment on above: Order Comment: No: D o not add to previous draw Performed By: #### 5 0103 #### [facility] [address] [place] [address], [facility] PLAT CNT 249 10*3/uL Normal 150-400 The [facility] Comment on above: Order Comment: No: D o not add to previous draw Performed By: #### 5 3 #### [facility] [address] [facility] [place] [address], [facility] RBC (Bld) [#/Vol] 5.82 10*6/uL High 4.20-5.70 The [facility] Comment on above: Order Comment: No: D o not add to previous draw Performed By: #### 5 0103 #### [facility] [address] [place] [address], [facility] WBC (Bld) [#/Vol] 15.85 10*3/uL High 4.00-10.60 [facility] Comment on above: Order Comment: No: D o not add to previous draw Performed By: #### 5 0103 #### [facility] [address] [facility]. [address] Operative Reporton 9 Operative Report MR#: [id number] I [facility] Pt. Name: Matty Garces Room #: [id number] Discharge Date: Birthdate: 1970 OPERATIVE REPORT DATE OF SURGERY: 01/30/2019 SURGEON: Luciano Vieira M.D. 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 POSTOPERATIVE DIAGNOSIS: Failed instrumentation at C6-7 on the right. SIDE SHOW ENTERTAINER: ADENIKE Lugo. ANESTHESIA: Endotracheal, Hogan. PROCEDURES: Redo [...] P Luciano Vieira M.D. Date Dict: 01/30/2019/04:52 Norma/Luciano Vieira M.D. Date Trans: 01/31/2019 02:31 Eze/sasha [id number] cc: Venus Mendez M.D. [address] [facility] [id number] [place] [facility] CERVICAL SPINE 2 OR [address] [facility] 01-30-2019 CERVICAL SPINE 2 OR [address] [facility] Department of Radiology [address] [place] [phone] Patient Name: MATTY GARCES : 1970 [...] documentation Electronically signed by:Justus Montano. Transcribed by: [email or web address], User Resident: Electronically Signed by: JUSTUS MONTANO @ 01/30/2019 04:18 PM Normal The [facility] Comment on above: Order Comment: C6-7 ACDF POC GLUCOSE LABon 01-30-2019 Glucose [Mass/Vol] 106 mg/dL High 70-100 The [facility] Comment on above: Performed By: #### 5 0103 #### [facility] [address] [facility]. [address] *MRSA/MSSA DNA NASALon 01-23 *MRSA/MSSA DNA NASAL Clinical Report: (D ) Specimen: NASAL SWAB Collected: 01/23/2019 15:02 Status: Final Last Updated: 01/23/2019 20:14 MSSA DNA (Final) Methicillin Susceptible Staphylococcus aureus DNA Detected MRSA DNA (Final) No Methicillin Resistant Staphylococcus aureus DNA Detected Normal [facility] Comment on above: Performed By: #### 5 0103 #### [facility] [address] [facility]. [address] APTTon 01-23-2019 aPTT Coag (Bld) [Time] 35.4 s High 25.0-35.0 [facility] Comment on above: Result Comment: ALL [...] THIS PURPOSE. Performed By: #### 5 7307, 37801 #### [facility] [address] BASIC METABOLIC PANELon 01-11 Calcium [Mass/Vol] 9.5 mg/dL Normal 8.6-10.3 [facility] Comment on above: Performed By: #### 5 7307, 71637 #### [facility] [address] [facility] [place] [place] [address], [facility] Chloride [Moles/Vol] 101 mmol/L Normal 98-107 [facility] Comment on above: Performed By: #### 5 7307, 35501 #### [facility] [address] [place] [address], [facility] CO2 [Moles/Vol] 29 mmol/L Normal 21-31 [facility] Comment on above: Performed By: #### 5 7306, 29667 #### [facility] [address] [place] [address], [place] Creatinine [Mass/Vol] 1.08 mg/dL Normal 0.70-1.30 [facility] Comment on above: Performed By: #### 5 7306, 26698 #### [facility] [address] [place] [address], [place] GFR/1.73 sq M predicted among blacks MDRD (S/P/Bld) [Vol rate/Area] mL/min/{1.73_m2} Normal >60 The [facility] Comment on above: Performed By: #### 5 7306, 31391 #### [facility] [address] [place] [address], [place] GFR/1.73 sq M predicted among non-blacks MDRD (S/P/Bld) [Vol rate/Area] mL/min/{1.73_m2} Normal >60 [facility] Comment on above: Performed By: #### 5 7306, 18327 #### [facility] [address] [place] [address], [place] Glucose [Mass/Vol] 87 mg/dL Normal 70-100 The [facility] Comment on above: Performed By: #### 5 7306, 54714 #### [facility] [address] [place] [address], [place] Potassium [Moles/Vol] 4.0 mmol/L Normal 3.5-5.1 [facility] Comment on above: Performed By: #### 5 73, 64288 #### [facility] [address] [place] [address], [place] Sodium [Moles/Vol] 137 mmol/L Normal 136-145 The [facility] Comment on above: Performed By: #### 5 7307, 24050 #### [facility] [address] [place] [address], [place] Urea nitrogen [Mass/Vol] 12 mg/dL Normal 7-25 The [facility] Comment on above: Performed By: #### 5 73Al, 30878 #### [facility] [address] CBC W/DIFFon 01-23-2019 ABS BASOPHILS 0.1 10*3/uL Normal 0.0-0.2 The [facility] Comment on above: Performed By: #### 5 Al, 14138 #### [facility] [address] [facility]. [address] ABS IMM GRANS 0.0 10*3/uL Normal 0.0-0.2 [facility] Comment on above: Performed By: #### 5 Al, 20023 #### [facility] [address] ABS NEUTROPHILS 5.3 10*3/uL Normal 1.6-7.[address] [facility] Comment on above: Performed By: #### 5 Al, 75763 #### [facility] [address] Basophils/100 WBC (Bld) 0.9 % Normal 0.0-1.0 The [facility] Comment on above: Performed By: #### 5 Al, 33629 #### [facility] [address] Eosinophils (Bld) [#/Vol] 0.2 10*3/uL Normal 0.0-0.5 The [facility] Comment on above: Performed By: #### 5 Al, 62893 #### [facility] [address] Eosinophils/100 WBC (Bld) 2.3 % Normal 0.0-6.0 [facility] Comment on above: Performed By: #### 5 Al, 28112 #### [facility] [address] Erythrocyte distribution width (RBC) [Ratio] 13.8 % Normal 11.5-15.0 [facility] Comment on above: Performed By: #### 5 7306, 48223 #### [facility] [address] [place] [id number], [facility] Hematocrit (Bld) [Volume fraction] 49.6 % Normal 39.0-50.0 [facility] Comment on above: Performed By: #### 5 7306, 63998 #### [facility] [address] [place] [place] [address], [facility] Hemoglobin (Bld) [Mass/Vol] 16.4 g/dL Normal 13.0-17.0 [facility] Comment on above: Performed By: #### 5 7306, 56019 #### [facility] [address] [place] [place] [address], [facility] IMMATURE GRANS 0.5 % Normal 0.0-1.0 [facility] Comment on above: Performed By: #### 5 7306, 43489 #### [facility] [address] [place] [address], [facility] Lymphocytes (Bld) [#/Vol] 1.2 10*3/uL Normal 1.2-4.0 [facility] Comment on above: Performed By: #### 5 7306, 89136 #### [facility] [address] [place] [address], [facility] Lymphocytes/100 WBC (Bld) 16.6 % Low 20.0-45.0 [facility] Comment on above: Performed By: #### 5 7306, 58717 #### [facility] [address] [place] [address], [facility] MCH (RBC) [Entitic mass] 27.8 pg Normal 27.0-33.0 The [facility] [facility] Comment on above: Performed By: #### 5 7306, 80414 #### [facility] [address] [place] [address], [facility] MCHC (RBC) [Mass/Vol] 33.1 g/dL Normal 32.0-35.0 The [facility] Comment on above: Performed By: #### 5 7306, 47209 #### [facility] [address] [place] [address], [facility] MCV (RBC) [Entitic vol] 84.2 fL Normal 82.0-98.0 The [facility] Comment on above: Performed By: #### 5 7306, 66952 #### [facility] [address] [place] [address], [facility] Monocytes (Bld) [#/Vol] 0.7 10*3/uL Normal 0.1-1.0 The [facility] Comment on above: Performed By: #### 5 7306, 61450 #### [facility] [address] [place] [address], [facility] MONOS 9.4 % Normal 5.0-12.0 The [facility] Comment on above: Performed By: #### 5 7306, 74923 #### [facility] [address] [place] [address], [facility] Neutrophils/100 WBC (Bld) 70.3 % Normal 40.0-72.0 The [facility] Comment on above: Performed By: #### 5 7306, 67768 #### [facility] [address] [place] [address], [facility] Nucleated RBC/100 WBC (Bld) [Ratio] 0 % Normal 0-0 The [facility] Comment on above: Performed By: #### 5 7306, 24083 #### [facility] [address] [place] [id number], [place] PLAT CNT 235 10*3/uL Normal 150-400 The [facility] Comment on above: Performed By: #### 5 73, 59439 #### [facility] [address] RBC (Bld) [#/Vol] 5.89 10*6/uL High 4.20-5.70 The [facility] Comment on above: Performed By: #### 5 7307, 88197 #### [facility] [address] WBC (Bld) [#/Vol] 7.48 10*3/uL Normal 4.00-10.60 The [facility] Comment on above: Performed By: #### 5 7307, 92741 #### [facility] [address] [facility]. [address] PROTHROMBIN TIMEon 9 INR Coag (PPP) [Relative time] 1.12 {INR} Normal 0.91-1.16 The [facility] Comment on above: Result Comment: ACCC [...] CHEST 1995;108:231S-246S. Performed By: #### 5 7307, 16195 #### [facility] [address] [facility]. [address] PT Coag (PPP) [Time] 14.4 s Normal 12.3-14.8 The [facility] Comment on above: Result Comment: ALL RESULTS MUST BE INTERPRETED WITH RESPECT TO BLOOD DRAWING ARTIFACT OR DILUTION ERROR OF ANTICOAGULANT AT THE TIME OF SAMPLING. Performed By: #### 5 7307, 02860 #### [facility] [address] [facility]. [address] TYPE AND SCREENon 01-23-2019 ABO INTERPRETATION A Normal The [facility] Comment on above: Performed By: #### 5 7307, 47819 #### [facility] [address] [facility]. [address] RH INTERPRETATION Positive Normal The [facility] Comment on above: Performed By: #### 5 7307, 30839 #### [facility] [address] [facility]. [address] 3D CERVICAL SPINE WO CONT RASTon 01-12-2019 CT 3D CERVICAL SPINE WO CONTRAST [facility] Department of Radiology [address] [place] [address] Patient Name: MATTY GARCES : 1970 Sex: M Age: Race: White Pt. Location: Patient Status: D Ordered Date: 01/10/2019 2:15:00 PM Completed Date: 01/12/2019 10:32 AM Requesting Provider: LUCIANO VIEIRA Attending Provider: LUCIANO VIEIRA Report Copy To: VENUS MENDEZ Signs & Symptoms: M48.02 Spinal stenosis, cervical region I10 History: Barto para auth # [id number] 01/10/19-02/09/19 [id number] *er Comments: Exam: CT 3D CERVICAL SPINE [...] incomplete Electronically signed by:Ten Garland. Transcribed by: [email or web address], User Resident: Electronically Signed by: TEN GARLAND @ 01/13/2019 09:18 AM Normal The [facility] CERVICAL SPINE 2 OR 3 VWSon 01-05-2019 CERVICAL SPINE 2 OR 3 S [facility] Department of Radiology [address] [place] [address] Patient Name: MATTY GARCES : [...] CERVICAL SPINE 2 OR 3 [facility] 01/05/2019 9:06 AM EDT SIGNS AND [...] findings. Electronically signed by:Ten Garland. Transcribed by: [email or web address], User Resident: SHELLY DELA CRUZ Electronically Signed by: TEN GARLAND @ 01/05/2019 12:37 PM I personally read this/these film(s) with this resident Normal The [facility] Comment on above: Order Comment: , , = ========= , Ordering Provider - LUCIANO VIEIRA MD , CERVICAL SPINE 2 OR [address] [facility] 08-30-2018 CERVICAL SPINE 2 OR [address] [facility] Department of Radiology [address] [place] [id number] Patient Name: MATTY GARCES : 1970 [...] , Exam: CERVICAL SPINE 2 OR 3 S CERVICAL SPINE 2 OR 3 S 08/30/2018 [...] findings. Electronically signed by:Bella King. Transcribed by: [email or web address], User Resident: RYAN HEAD Electronically Signed by: BELLA KING @ 08/30/2018 05:45 PM I personally read this/these film(s) with this resident Normal The [facility] Comment on above: Order Comment: , POS T OP XRAY AP/LAT ONLY , POST OP XRAY AP/LAT ONLY , , , Ordering Provider - LUCIANO VIEIRA MD , Operative Reporton 8 Operative Report MR#: [id number] I [facility] Pt. Name: Matty Garces Room #: [id number] Discharge Date: Birthdate: 1970 OPERATIVE REPORT DATE OF SURGERY: 08/17/2018 SURGEON: Luciano Vieira M.D. PREOPERATIVE DIAGNOSIS: Herniated cervical disk at C6-7. POSTOPERATIVE DIAGNOSIS: Herniated cervical disk at C6-7. SIDE SHOW ENTERTAINER: ADENIKE Larios. ANESTHESIA: Endotracheal, Braida. PROCEDURE: Anterior [...] size 8. l. Plate size 17 mm. lary GARCIA. ESTIMATED BLOOD LOSS: Minimal. OPERATIVE INDICATION: The [...] Vieira M.D. Date Trans: 08/17/2018 11:25 P/sasha [id number] cc: Venus Mendez M.D. [address] [phone] [place] [facility] CERVICAL SPINE 2 OR [address] [facility] 08-17-2018 CERVICAL SPINE 2 OR [address] [facility] Department of Radiology [address] [place] [phone] Patient Name: MATTY GARCES : 1970 [...] findings. Electronically signed by:Bernice Hoyt. Transcribed by: [email or web address], User Resident: EMILE TINAJERO Electronically Signed by: BERNICE HOYT @ 08/18/2018 01:06 PM I personally read this/these film(s) with this resident Normal The [facility] Comment on above: Order Comment: C6-7 ACDF with POC GLUCOSE LABon 08-17-2018 Glucose [Mass/Vol] 113 mg/dL High 70-100 The [facility] Comment on above: Performed By: #### 8 5499 #### [facility] [address] [place] [address], [facility] RBC'S 2 UNITSon 08-17-2018 CROSSMATCH INTERP 1 COMP Normal [facility] Comment on above: Performed By: #### 8 6002 #### [facility] [address] [place] [address], [facility] CROSSMATCH INTERP 2 COMP Normal [facility] Comment on above: Performed By: #### 8 6002 #### [facility] [address] [place] [address], [facility] PRODUCT CODE 1 E0336 Normal The [facility] Comment on above: Performed By: #### 8 6002 #### [facility] [address] [place] [address], [facility] PRODUCT CODE 2 E0336 Normal The [facility] Comment on above: Performed By: #### 8 6002 #### [facility] [address] [place] [address], [facility] PRODUCT STATUS 1 RE Normal The [facility] Comment on above: Result Comment: Resu lt changed by IF on 08/20/2018 07:48. The previous value was XM. Performed By: #### 8 6002 #### [facility] [address] [place] [address], [facility] PRODUCT STATUS 2 RE Normal [address] [facility] Comment on above: Result Comment: Resu lt changed by IF on 08/20/2018 07:48. The previous value was XM. Performed By: #### 8 6002 #### [facility] [address] UNIT ABO 1 A Normal [facility] Comment on above: Performed By: #### 8 6002 #### [facility] [address] [place] [address], [facility] UNIT ABO 2 A Normal The [facility] Comment on above: Performed By: #### 8 6002 #### [facility] [address] UNIT ID 1 [id number] Normal [facility] Comment on above: Performed By: #### 8 6002 #### [facility] [address] UNIT ID 2 [id number] Normal The [facility] Comment on above: Performed By: #### 8 6002 #### [facility] [address] UNIT RH 1 Positive Normal The [facility] Comment on above: Performed By: #### 8 6002 #### [facility] [address] UNIT RH 2 Positive Normal [facility] Comment on above: Performed By: #### 8 6002 #### [facility] [address] [facility] [facility] *MRSA/MSSA CULTUREon 018 *MRSA/MSSA CULTURE Clinical Report: (D) Specimen: NASAL SWAB Collected: 08/02/2018 12:37 Status: Final Last Updated: 08/03/2018 14:26 ISO (Final) No Methicillin Resistant Staphylococcus aureus Isolated (MRSA) ISO (Final) Methicillin Sensitive Staphylococcus aureus (MSSA) Isolated Normal The [facility] Comment on above: Performed By: #### 3 1302 #### [facility] [address] APTTon 08-02-2018 aPTT Coag (Bld) [Time] 31.2 s Normal 25.0-35.0 [facility] Comment on above: Result Comment: ALL [...] THIS PURPOSE. Performed By: #### 5 7307, 97729 #### [facility] [address] [place] [address], [facility] BASIC METABOLIC PANELon 11-2 0 Calcium [Mass/Vol] 9.4 mg/dL Normal 8.6-10.3 [facility] Comment on above: Performed By: #### 0 0071 #### [facility] [address] [place] [address], [facility] Chloride [Moles/Vol] 103 mmol/L Normal 98-107 The [facility] Comment on above: Performed By: #### 0 0071 #### [facility] [address] [place] [address], [facility] CO2 [Moles/Vol] 29 mmol/L Normal 21-31 [facility] Comment on above: Performed By: #### 0 0071 #### [facility] [address] [place] [address], [facility] Creatinine [Mass/Vol] 1.06 mg/dL Normal 0.70-1.30 The [facility] Comment on above: Performed By: #### 0 0071 #### [facility] [address] [place] [address], [facility] GFR/1.73 sq M predicted among blacks MDRD (S/P/Bld) [Vol rate/Area] mL/min/{1.73_m2} Normal >60 The [facility] Comment on above: Performed By: #### 0 0071 #### [facility] [address] GFR/1.73 sq M predicted among non-blacks MDRD (S/P/Bld) [Vol rate/Area] mL/min/{1.73_m2} Normal >60 The [facility] Comment on above: Performed By: #### 0 0071 #### [facility] [address] [place] [address], [facility] Glucose [Mass/Vol] 84 mg/dL Normal 70-100 The [facility] Comment on above: Performed By: #### 0 0071 #### [facility] [address] Potassium [Moles/Vol] 4.0 mmol/L Normal 3.5-5.1 The [facility] Comment on above: Performed By: #### 0 0071 #### [facility] [address] Sodium [Moles/Vol] 140 mmol/L Normal 136-145 The [facility] Comment on above: Performed By: #### 0 0071 #### [facility] [address] [place] [address], [facility] Urea nitrogen [Mass/Vol] 20 mg/dL Normal 7-25 The [facility] Comment on above: Performed By: #### 0 0071 #### [facility] [address] [place] [address], [facility] CBC W/DIFFon 08-02-2018 ABS BASOPHILS 0.1 10*3/uL Normal 0.0-0.2 The [facility] Comment on above: Performed By: #### 5 3 #### [facility] [address] ABS IMM GRANS 0.1 10*3/uL Normal 0.0-0.2 [facility] Comment on above: Performed By: #### 5 0103 #### [facility] [address] [place] [address], [facility] ABS NEUTROPHILS 4.2 10*3/uL Normal 1.6-7.6 [facility] Comment on above: Performed By: #### 5 3 #### [facility] [address] [place] [address], [facility] Basophils/100 WBC (Bld) 1.3 % High 0.0-1.0 The [facility] Comment on above: Performed By: #### 5 3 #### [facility] [address] [place] [address], [facility] Eosinophils (Bld) [#/Vol] 0.1 10*3/uL Normal 0.0-0.5 The [facility] Comment on above: Performed By: #### 102 #### [facility] [address] [place] [address], [facility] Eosinophils/100 WBC (Bld) 2.0 % Normal 0.0-6.0 The [facility] Comment on above: Performed By: #### 5 102 #### [facility] [address] Erythrocyte distribution width (RBC) [Ratio] 13.6 % Normal 11.5-15.0 [facility] Comment on above: Performed By: #### 3 #### [facility] [address] [place] [address], [facility] Hematocrit (Bld) [Volume fraction] 44.3 % Normal 39.0-50.0 The [facility] Comment on above: Performed By: #### 5 3 #### [facility] [address] [facility] [place] [address], [facility] Hemoglobin (Bld) [Mass/Vol] 15.1 g/dL Normal 13.0-17.0 The [facility] Comment on above: Performed By: #### 5 3 #### [facility] [address] [place] [address], [facility] IMMATURE GRANS 1.1 % High 0.0-1.0 The [facility]min [facility] Comment on above: Performed By: #### 5 0103 #### [facility] [address] [place] [address], [facility] Lymphocytes (Bld) [#/Vol] 1.2 10*3/uL Normal 1.2-4.0 The [facility] Comment on above: Performed By: #### 5 0103 #### [facility] [address] [place] [address], [facility] Lymphocytes/100 WBC (Bld) 18.3 % Low 20.0-45.0 The [facility] Comment on above: Performed By: #### 5 0103 #### [facility] [address] [place] [address], [facility] MCH (RBC) [Entitic mass] 29.0 pg Normal 27.0-33.0 The [facility] Comment on above: Performed By: #### 5 0103 #### [facility] [address] [place] [address], [facility] MCHC (RBC) [Mass/Vol] 34.1 g/dL Normal 32.0-35.0 [facility] Comment on above: Performed By: #### 5 0103 #### [facility] [address] [place] [address], [facility] MCV (RBC) [Entitic vol] 85.0 fL Normal 82.0-98.0 The [facility] Comment on above: Performed By: #### 5 0103 #### [facility] [address] [facility] [place] [address], [facility] Monocytes (Bld) [#/Vol] 0.7 10*3/uL Normal 0.1-1.0 The [facility] Comment on above: Performed By: #### 5 3 #### [facility] [address] [place] [address], [facility] MONOS 11.1 % Normal 5.0-12.0 The [facility] Comment on above: Performed By: #### 5 0103 #### [facility] [address] [facility] [place] [place] [address], [facility] Neutrophils/100 WBC (Bld) 66.2 % Normal 40.0-72.0 The [facility] Comment on above: Performed By: #### 5 0103 #### [facility] [address] [place] [address], [facility] Nucleated RBC/100 WBC (Bld) [Ratio] 0 % Normal 0-0 [facility] Comment on above: Performed By: #### 5 0103 #### [facility] [address] [place] [address], [facility] PLAT CNT 179 10*3/uL Normal 150-400 The [facility] Comment on above: Performed By: #### 5 0103 #### [facility] [address] [place] [address], [facility] RBC (Bld) [#/Vol] 5.21 10*6/uL Normal 4.20-5.70 [facility] Comment on above: Performed By: #### 5 3 #### [facility] [address] [facility] [place] [place] [address], [facility] WBC (Bld) [#/Vol] 6.39 10*3/uL Normal 4.00-10.60 [facility] Comment on above: Performed By: #### 5 102 #### [facility] [address] [place] [address], [facility] CERVICAL SPINE 4 OR 5 VIEWSo n 08-02-2018 CERVICAL SPINE 4 OR 5 VIEWS [facility] Department of Radiology [address] [place] [id number] Patient Name: MATTY GARCES : 1970 Sex: M Age: Race: White Pt. Location: 85 Patient Status: D Ordered Date: 08/02/2018 1:05:00 [...] findings. Electronically signed by:Bella King. Transcribed by: [email or web address], User Resident: EMILE TINAJERO Electronically Signed by: BELLA KING @ 08/03/2018 11:58 AM I personally read this/these film(s) with this resident Normal The [facility] Comment on above: Order Comment: , PRE OP XRAY AP/LAT \EANDE\ FLEX/EX , PREOP XRAY AP/LAT \EANDE\ FLEX/EX , , , Ordering Provider - LUCIANO VIEIRA MD , PROTHROMBIN TIMEon 8 INR Coag (PPP) [Relative time] 1.15 {INR} Normal 0.91-1.16 [facility] Comment on above: Result Comment: ACCC [...] CHEST 1995;108:231S-246S. Performed By: #### 5 7307, 51609 #### [place] [address] [place] [address], [facility] PT Coag (PPP) [Time] 14.7 s Normal 12.3-14.8 The [facility] Comment on above: Result Comment: ALL RESULTS MUST BE INTERPRETED WITH RESPECT TO BLOOD DRAWING ARTIFACT OR DILUTION ERROR OF ANTICOAGULANT AT THE TIME OF SAMPLING. Performed By: #### 5 7307, 48866 #### [facility] [address] [place] [address], [facility] TYPE AND SCREENon 08-02-2018 ABO INTERPRETATION A Normal [facility] Comment on above: Order Comment: 2 uni ts 2 units 2 units 2 units 2 units Performed By: #### 6 2586 #### [facility] [address] [facility] [place] [place] [address], [facility] RH INTERPRETATION Positive Normal The [facility] Comment on above: Order Comment: 2 uni ts 2 units 2 units 2 units 2 units Performed By: #### 6 2586 #### [facility] [address] [place] [address], [facility] URINALYSIS REFLEXon 08-02-20 18 Appearance (U) CLEAR Normal CLEAR The [facility] Comment on above: Performed By: #### 3 0965 #### [facility] [address] [facility] [place] [place] [address], [facility] Bilirubin [Mass/Vol] Negative Normal NEGATIVE The [facility] Comment on above: Performed By: #### 3 0965 #### [facility] [address] [facility] [place] [place] [address], [facility] BLOOD Negative Normal NEGATIVE The [facility] Comment on above: Performed By: #### 3 0965 #### [facility] [address] [facility] [place] [place] [address], [facility] Color (U) YELLOW Normal YELLOW The [facility] Comment on above: Performed By: #### 3 0965 #### [facility] [address] [place] [address], [facility] Glucose [Mass/Vol] 150 mg/dL Abnormal NEGATIVE The [facility] Comment on above: Performed By: #### 3 0965 #### [facility] [address] [place] [address], [facility] KETONE Negative Normal NEGATIVE The [facility] Comment on above: Performed By: #### 3 0965 #### [facility] [address] [place] [address], [facility] [place] Negative Normal NEGATIVE [facility] Comment on above: Performed By: #### 3 0965 #### [facility] [address] [place] [address], [facility] MICRO NOT DONE negative chemical reactions unless requested in original order Normal The [facility] Comment on above: Performed By: #### 3 0965 #### [facility] [address] [place] [address], [facility] Nitrite Ql (U) Negative Normal NEGATIVE [facility] Comment on above: Performed By: #### 3 0965 #### [facility] [address] [place] [address], [facility] pH (Bld) 5.0 Normal 5.0-8.0 [facility] Comment on above: Performed By: #### 3 0965 #### [facility] [address] [place] [address], [facility] Protein (U) [Mass/Vol] Negative Normal NEGATIVE [facility] Comment on above: Performed By: #### 3 0965 #### [facility] [address] [place] [address], [facility] SPEC GRAV 1.024 High 1.015-1.020 [facility] Comment on above: Performed By: #### 3 0965 #### [facility] [address] [place] [address], [facility] Vital Signs Date Time Vital Sign Value Performing Clinician Bijali litlamont 06-15-2022 10:30-0400 Blood Pressure Location [facility] 02-25-2022 10:30-0400 Diastolic blood pressure 107 mm[Hg] [facility] 02-25-2022 10:30-0400 Heart rate 74 /min [facility] 02-25-2022 10:30-0400 Respiratory rate 16 /min [facility] 02-25-2022 10:30-0400 Systolic blood pressure 157 mm[Hg] [facility] Encounters Encounter Date Encounter Type Care Provider Facility Start: 01-10-2024 End: 01-10-2024 ambulatory VALENCIA DE LEÓN Not Available Start: 01-03-2024 End: 01-03-2024 ambulatory Trey Vallejo Facility:[facility] Start: 01-03-2024 End: 01-03-2024 ambulatory DPM Trey Vallejo Work Phone: [facility] Work Phone: Start: 01-03-2024 End: 01-03-2024 Departed Referred DPM Trey Hard[facility] Work Phone: [facility] Start: 12-29-2023 End: 12-29-2023 ambulatory RUBÉN GEIGER Not Available Start: 11-29-2023 End: 11-30-2023 ambulatory Diallo Beauchamp MD Facility:[facility] Start: 10-18-2023 End: 10-19-2023 ambulatory Diallo Beauchamp MD Facility:[facility] Start: 09-27-2023 End: 09-27-2023 ambulatory RUBÉN GEIGER Not Available Start: 08-30-2023 End: 08-31-2023 ambulatory Diallo Beauchamp MD Facility:[facility] Start: 07-12-2023 End: 07-13-2023 ambulatory Diallo Beauchamp MD Facility:[facility] Start: 06-14-2023 End: 06-15-2023 ambulatory Kirkus Woo Beauchamp MD Facility:[facility] Start: 03-11-2023 End: 03-11-2023 ambulatory Rubén Geiger Facility:[facility] Start: 12-06-2022 End: 12-06-[address] VENUS MENDEZ . Facility:[facility] Start: 12-05-2022 Encounter for genera l adult medical examination without abnormal findings DR VENUS MENDEZ . [facility] Start: [...] encounter procedure Viola Grullon [facility] Start: 01-04-2022 End: 01-05-[address] VENUS MENDEZ . Facility: Start: 01-30-2019 End: 02-01-2019 Evaluation and management of inpatient PROVIDER UNKNOWN Facility:[facility] Start: 08-17-2018 End: 08-18-2018 Patient encounter procedure PROVIDER UNKNOWN Facility:[facility] Procedures Date Procedure Procedure Detail Performing Clinician Start: 12-01-[address] FRANKLIN MENDEZ . Comment on above: Performed By: #### [facility] #### [facility] [address] [place] [address] Dr. Shabnam Rae Start: 01-30-2019 FUSION CERV JT W INT BD FUS DEV, ANT APPR A COL, OPEN [facility] Start: 01-30-2019 REMOVAL OF INT FIX F ROM CERVCAL VERTEBRA, OPEN APPROACH [facility] Start: 01-23-2019 Antibody screen PROVIDE R UNKNOWN Comment on above: Performed By: #### [id number] #### [facility] [address] Start: 08-17-2018 ANESTH SPINE CORD SURGERY SANDRA FLY Start: 08-17-2018 INSERT SPINE FIXATIO N DEVICE [facility] Start: 08-17-2018 NECK SPINE FUSE\T\RE MOV BEL C2 [facility] Start: 08-17-2018 SP BONE ALGRFT STRUC T ADD-ON [facility] Start: 08-02-2018 Antibody screen PROVIDE R UNKNOWN Comment on above: Order Comment: 2 uni ts 2 units 2 units 2 units 2 units Performed By: #### [id number] #### [facility] [address] Colonoscopy Viola Grullon Hemorrhoids (disorder) Viola Lue Hernia of abdominal cavity (disorder) Viola Anna Mariee Tonsillectomy Viola Mitchel Payers Date Payer Category Payer Self-pay [id number] 2022 Medicaid [id number] 2022 Unknown 1970 Unknown [id number] 2.16.8 40.1.981967.3.579.2.647 1969 Unknown [id number] 2.16.8 40.1.137326.3.579.2.647 1969 Unknown [id number] 2.16.84 0.1.932587.3.579.2.593 1969 Unknown [id number] 2.16.84 0.1.522474.3.579.2.593 1969 Unknown [id number] 2.16.84 0.1.674479.3.579.2.593 1969 Unknown [id number] 2.16.84 0.1.848974.3.579.2.593 1969 Unknown [id number] 2.16.84 0.1.830317.3.579.2.593 1969 Unknown [id number] 2.16.84 0.1.662075.3.579.2.593 1969 Unknown [id number] 2.16. 840.1.551662.3.579.2.196 1969 Unknown [id number] 2.16. 840.1.677536.3.579.2.196 1969 Unknown [id number] 2.16. 840.1.267670.3.579.2.196 1969 Unknown [id number] 2.16. 840.1.888730.3.579.2.196 1969 Unknown [id number] 2.16. 840.1.624807.3.579.2.196 1969 Unknown [id number] 2.16.84 0.1.963365.3.579.2.1259 1969 Unknown [id number] 2.16.84 0.1.127241.3.579.2.1259 1969 Unknown [id number] 2.16.84 0.1.171766.3.579.2.1259 1969 Unknown [id number] 2.16.84 0.1.023125.3.579.2.1259 1959 Unknown [id number] Unknown [id number] Unknown [id number] 2.16.8 40.1.394900.3.579.2.531 Unknown [id number] 2.16.8 40.1.654642.3.579.2.531 Social History Date Type Detail Facility Tobacco smoking status No Smokin g Status Entered [facility] Sex Assigned At Male [facility] Start: 05-15-2018 Tobacco smoking stat us NHIS Ex-smoker (finding) [facility] Start: 1970 Sex Assigned At Male F [facility] Functional Status Date Assessment Result Facility 02-25-2022 Functional Status N/A [facility] Progress note 06-09-2023 Note Date & Type Note Facility 06-09-2023 Note [facility] Continue GDMT- Diuretic therapy Monitor daily weights, I&O, fluid restriction 1.5-2L/day, renal function and electrolytes- [facility] Clinical Note 03-26-2022 Note Date & [...] authenticated by: ALVINA CAICEDO Date: 2022-03-26 10:47 [facility] Discharge instructions 02-25-2022 Note Date & Type [...] Watch the hydrocele for any changes. Take vnef-cyc-glheokg and prescription medicines only as told by [...] 02/17/2011 Document Revised: 09/10/2018 Document Reviewed: 09/10/2018 [employer] Patient Education 2020 [employer]. Follow Up Care 01/28/2022 10:36:35 With:Mitchel DELGADO, Viola Cohn URL, URO Address: When: Unknown [facility] Evaluation + Plan note Note Date & Type Note Facility Evaluation + Plan note No data available for this section [facility] Evaluation note Note Date & Type Note Facility Evaluation note No assessment information availa [facility] Work Phone: Progress note Note Date & Type Note Facility Progress note No data available for this section [facility] Summary Purpose Family History No Family History Records FoundNo Family History Records FoundNo Family History Records FoundNo Family History Records FoundNo Family History Records FoundNo Family History Records FoundNo Family History Records Found Advance Directives No Advanced Directives Records Found Advance Directive Response Recorded Date/ Time Advance Directives No May 12:42pm Hospital Course Note MR#: [id number] I [facility] Pt. Name: Matty Garces Admitted: 01/30/2019 [...] and content) DATE CREATED AUTHOR 07/19/2019 [facility] DATE CREATED AUTHOR AUTHOR'S ORGANIZ ATION 02/27/2022 [facility] DATE CREATED AUTHOR AUTHOR'S ORGANIZ ATION 12/08/2022 [facility] DATE CREATED AUTHOR AUTHOR'S ORGANIZ ATION 06/17/2023 [facility] DATE CREATED AUTHOR AUTHOR'S ORGANIZ ATION 12/03/2023 [facility] DATE CREATED AUTHOR AUTHOR'S ORGANIZ ATION 01/08/2024 [facility] DATE CREATED AUTHOR AUTHOR'S ORGANIZ ATION 01/11/2024 [facility] Care Team (unrecognized sect ion and content) Team Status: Inactive Member Role Status Dates Trey Vallejo DPM MS Attending Provider Active Start: January 03, 2024 End: January 03, 2024 Goals (unrecognized section and content) Goals may be documented in a n alternate section FOR RECORDS PERTAINING TO PATIENTS WHO ARE [...] BE BASED ON THE PRIMARY CLINICAL RECORDS. [facility] [employer] provides no warranty or guarantee of the accuracy or completeness of information in this document.
== END 2024-01-14 12:06 | disposition home or self-care (01) ==
LOC: WC 12:05
PROVIDERS: PCP Family Medicine; Visit Provider Podiatrist Foot & Ankle Surgery
DX: L97.512 Non-pressure chronic ulcer of other part of right foot with fat layer exposed (principal)
CPT/HCPCS: 29445

== ENCOUNTER 2024-01-21 11:21 | Outpatient (OUT) | payer MEDICAID, SELFPAY ==
--- OUTSIDE RECORDS SUMMARY | 2024-01-21 11:52 | XMS_ITS | CCD ---
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 Name Role Phone UNKNOWN, PROVIDER Admitting Unavailable UNKNOWN, PROVIDER Attending Unavailable VENUS MENDEZ Referring Unavailable VENUS MENDEZ Primary Care Unavailable MS Procedure Practitioner Unavailab le UNKNOWN, PROVIDER Surgeon Unavailable MS Procedure Practitioner Unavailab le SANDRA BILL Surgeon Unavailable UNKNOWN, PROVIDER Admitting Unavailable UNKNOWN, PROVIDER Attending Unavailable VENUS MENDEZ Referring Unavailable VENUS MENDEZ Primary Care Unavailable MS Procedure Practitioner Unavailab le UNKNOWN, PROVIDER Surgeon Unavailable Venus Mendez Primary Care Physician MIL ., DR DONOVAN Admitting Unavailable HOY ., DR DONOAVN Attending Unavailable HOY ., DR DONOVAN Primary [...] Berkowitz Attending Unavailable CHINO Vallejo Attending Provider Trey Vallejo Admitting Unavailable Trey Vallejo Attending Unavailable Rubén Geiger. Admitting Unavailable Rubén Geiger. Attending Unavailable Venus Mendez Primary Care Unavailable RUBÉN GEIGER Attending Unavailable RUBÉN GEIGER Attending Unavailable VALENCIA DE LEÓN Attending Unavailable VALENCIA DE LEÓN Referring Unavailable Allergies Allergy Classification Reported Allergen(s) Allergy Type Date of Onset Reaction(s) Facility (1 source) Aspartame Drug Allergy 08-17-20 18 [facility] Repository (1 source) avoid; Translations: [Unknown] Propensity to adverse reactions (disorder) 08-17-20 18 [facility] Repository (1 source) vitamin B12; Translations: [cyanocobalamin] Drug Allergy Unknown (qualifier value) [facility] (1 source) Acetaminophen / HYDROcodone Drug Allergy [facility] Repository (1 source) Corticosteroids Drug allergy (disorder) [facility]ository (1 source) fentaNYL Drug Allergy [facility] Repository (1 source) Misc-Food; Translations: [Misc-Food] Food allergy (disorder) [facility]ository (1 source) Corticosteroids Drug allergy (disorder) 05-14-20 18 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; Translations: [HYDROSTATIC TESTER 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 ASPIRIN] Onset: 3 Episodic Other aftercare (1 source) Other terminal manager (current) drug therapy; Translations: [OTH [facility] CURRENT DRUG THERAPY] Onset: 3 Episodic Other [...] Test Name Value Interpretation Reference Range Facility [facility] 01-03-2024 L Specimen: [id number] Received: 01/03/24 Status: GIOVANNI Jacinto Num: [id number] Spec Type: Surgical Subm Dr: Trey Vallejo DPM, MS Tissues: A Bone Fragments - Pathologic Fracture (PROXIMAL PHALANX RIGHT HALLU) Procedures: HE/2, Gross/Micro L5, Decalcification Age/ Patient Sex Location Account Attending Physician Matty Garces 53/M LABELL [id number] Trey Vallejo DPM, MS SPEC NUM: [id number] RECD: 01/03/24 STATUS: GIOVANNI JACINTO NUM: [id number] SOFY: 01/03/[address]: Trey Vallejo DPM, MS ENTERED: 01/03/[address] [facility] DR: Toño,Ayesha SPEC TYPE: Surgical DEPT: SEEMA [...] Sectioning reveals unremarkable yellow, spongy bone matrix. Yard Foreman sections are submitted in A1 following decal. Clinical history: Non-pressure chronic ulcer . Right hallux IPJ arthroplasty with wound debridement and graft application TW Specimen: [id number] Received: 01/03/24 Status: GIOVANNI Jacinto Num: [id number] Spec Type: Surgical Subm Dr: Trey Vallejo,DPM, MS Tissues: A Bone Fragments - Pathologic Fracture (PROXIMAL PHALANX RIGHT HALLU) Procedures: HE/2, Gross/Micro L5, Decalcification Patient: Matty Garces [id number] (Continued) Specimen: [id number] Received: 01/03/24 (Continued) Signed (signature on file) Viral Rae MD 01/06/24 1838 Specimen: [id number] Received: 01/03/24 Status: GIOVANNI Jacinto Num: [id number] Spec Type: Surgical Subm Dr: Trey Vallejo,[place], [place] Tissues: A Bone Fragments - Pathologic Fracture (PROXIMAL PHALANX RIGHT HALLU) Procedures: HE/2, Gross/Micro L5, Decalcification Patient: Matty Garces [id number] (Continued) Specimen: [id number] Received: 01/03/24 (Continued) CPT Codes 97895 Specimen: [id number] Received: 01/03/24 Status: GIOVANNI Jacinto Num: [id number] Spec Type: Surgical Subm Dr: Trey Vallejo,[place], [place] Tissues: A Bone Fragments - Pathologic Fracture (PROXIMAL PHALANX RIGHT HALLU) Procedures: HE/2, Gross/Micro L5, Decalcification Patient: Matty Garces [id number] (Continued) Signed (signature on file) Viral Rae MD 01/06/241837 Normal [facility] XR cervical spine 5V*on 02-12 XR cervical spine 5V* [place] [address] XRay Report Signed Patient: Matty Garces MR#: [id number] 97 : 1970 Acct:[id number] Age/Sex: 52 / M ADM Date: 03/11/23 Loc: ICXD Room: Type: [facility] Attending Dr: Rubén Geiger MD Copies [...] Crow Contreras M.D.03/11/2023 3:48 PM Dictation Location: [place] [address] Transcribed By: [facility] 03/11/23 1548 Dictated By: Crow Contreras DO 03/11/23 1544 Signed By: 03/11/23 1548 Normal [facility] Physician [facility] CT CSPINE WO CONon CT CSPINE WO [...] by: ANGEL JORDAN Date: 2022-12-06 06:37 Normal [facility] CT FACIAL BONES WO CONon CT [...] ANGEL JORDAN Date: 2022-12-06 06:41 Normal [facility] CT HEAD WO CONon 12-06-2022 CT [...] ANGEL JORDAN Date: 2022-12-06 06:39 Normal [facility] XR ELBOW RT MIN 3 VIEWSon XR ELBOW RT MIN 3 VIEWS Exam: Radiographs: XR ELBOW RT MIN 3 VIEWS Reason for exam: Elbow pain Comparison: None IMPRESSION: Right elbow degenerative changes. Olecranon spur. Remainder of the right elbow is unremarkable. Electronically authenticated by: MICHAEL CASANOVA Date: 2022-12-06 07:22 Normal [facility] XR FOREARM RT 2Von 3 XR FOREARM RT 2V Exam: Radiographs: XR FOREARM RT 2V Reason for exam: Forearm pain Comparison: None IMPRESSION: Mild degenerative changes in the right elbow and wrist. Right forearm is otherwise unremarkable. Electronically authenticated by: MICHAEL CASANOVA Date: 2022-12-06 08:07 Normal [facility] PSA, FREE AND TOTAL RATIOon 12-03-2022 % Free PSA 9.0 % Normal [facility] Comment on above: Result Comment: The [...] men. Performed By: #### P SAFREE #### [facility] [address] [place] [address] Dr. Shabnam Rae Prostate specific Ag [Mass/Vol] 5.9 ng/mL Critically high 0.0-4.0 [facility] Comment on above: Result Comment: Tanja ayala ECLIA methodology. . According to the [employer], Serum PSA should decrease and [...] disease. Performed By: #### P SAFREE #### [facility] [address] [place] [address] Dr. Shabnam Rae PSA, Free 0.53 ng/mL Normal N/A [facility] Comment on above: Result Comment: Tanja ayala ECLIA methodology. Performed By: #### P SAFREE #### [facility] [address] [place] [address] Dr. Shabnam Rae INSULINon 12-02-2022 Insulin 20.2 uIU/mL Normal 2.6-24.9 [facility] Comment on above: Performed By: #### P SASC #### [facility] [address] [place] [address] Dr. Shabnam Rae TESTOSTERONE, TOTALon 2022 Testosterone [Mass/Vol] 256 ng/dL Critically low 264-916 [facility] Comment on above: Result Comment: Adul t male reference interval is based on a population of healthy nonobese males (BMI <30) between 19 and 39 years old. adia Ch.al. JCEM 2017,102;9373-0063. PMID: 71218027. Performed By: #### P SASC #### [facility] [address] [place] [address] Dr. Shabnam Rae CBC AUTO DIFFon 12-01-2022 BASO # 0.1 103/ul Normal 0.0-0.1 [facility] Comment on above: Performed By: #### P SASC #### [facility] [address] [place] [address] Dr. Shabnam Rae Basophils/100 WBC (Bld) 1.0 % Normal 0.2-2.0 [facility] Comment on above: Performed By: #### P SASC #### [facility] [address] [place] [address] Dr. Shabnam Rae EO # 0.1 103/ul Normal 0.0-0.7 [facility] Comment on above: Performed By: #### P SASC #### [facility] [address] [place] [address] Dr. Shabnam Rae Eosinophils/100 WBC (Bld) 1.8 % Normal 0.9-7.0 [facility] Comment on above: Performed By: #### P SASC #### [facility] [address] [place] [address] Dr. Shabnam Rae Erythrocyte distribution width (RBC) [Ratio] 14.8 % Normal 11.0-15.0 [facility] Comment on above: Performed By: #### P SASC #### [facility] [address] [place] [address] Dr. Shabnam Rae Hematocrit (Bld) [Volume fraction] 49.9 % Normal 42.0-54.0 [facility] Comment on above: Performed By: #### P SASC #### [facility] [address] [place] [address] Dr. Shabnam Rae Hemoglobin (Bld) [Mass/Vol] 16.0 g/dL Normal 14.0-18.0 [facility] Comment on above: Performed By: #### P SASC #### [facility] [address] [address] [address] Shabnam Rae IG # 0.04 10e3/ul Critically high 0.00-0.03 [facility] Comment on above: Performed By: #### P SASC #### [facility] [address] [place] [address] [address] Shabnam Rae IG % 0.6 % Critically high 0.0-0.5 [facility] Comment on above: Performed By: #### P SASC #### [facility] [address] [place] [address] Dr. Shabnam Rae LYMPH # 1.0 103/ul Critically low 1.2-3.8 [facility] Comment on above: Performed By: #### P SASC #### [facility] [address] [place] [address] Dr. Shabnam Rae Lymphocytes/100 WBC (Bld) 16.2 % Critically low 20.5-60.0 [facility] Comment on above: Performed By: #### P SASC #### [facility] [address] [place] [address] Dr. Shabnam Rae MANUAL DIFF REQ NO Normal [facility] Comment on above: Performed By: #### P SASC #### [facility] [address] [address] [address] Shabnam Rae MCH (RBC) [Entitic mass] 27.7 pg Normal 25.9-34.0 [facility] Comment on above: Performed By: #### P SASC #### [facility] [address] [place] [address] [address] Shabnam Rae MCHC (RBC) [Mass/Vol] 32.1 g/dL Normal 29.9-35.2 [facility] Comment on above: Performed By: #### P SASC #### [facility] [address] [place] [address] [address] Shabnam Rae MCV (RBC) [Entitic vol] 86.3 fL Normal 80.0-94.0 [facility] Comment on above: Performed By: #### P SASC #### [facility] [address] [place] [address] Dr. Shabnam Rae MONO # 0.5 103/ul Normal 0.3-0.8 [facility] Comment on above: Performed By: #### P SASC #### [facility] [address] [place] [address] Dr. Shabnam Rae Monocytes/100 WBC (Bld) 7.6 % Normal 1.7-12.0 [facility] Comment on above: Performed By: #### P SASC #### [facility] [address] [place] [address] Dr. Shabnam Rae NEUT # 4.6 103/ul Normal 1.4-6.5 [facility] Comment on above: Performed By: #### P SASC #### [facility] [address] [place] [address] Dr. Shabnam Rae Neutrophils/100 WBC (Bld) 72.8 % Normal 43.0-75.0 [facility] Comment on above: Performed By: #### P SASC #### [facility] [address] [place] [address] Dr. Shabnam Rae Platelet mean volume (Bld) [Entitic vol] 9.8 fL Normal 9.5-13.5 [facility] Comment on above: Performed By: #### P SASC #### [facility] [address] [place] [address] Dr. Shabnam Rae PLT 203 103/ul Normal 150-450 [facility] Comment on above: Performed By: #### P SASC #### [facility] [address] [place] [address] Dr. Shabnam Rae RBC 5.78 106/ul Normal 4.70-6.10 [facility] Comment on above: Performed By: #### P SASC #### [facility] [address] [place] [address] Dr. Shabnam Rae WBC 6.3 103/ul Normal 4.0-11.0 [facility] Comment on above: Performed By: #### P SASC #### [facility] [address] [place] [address] [address] Shabnam Rae FREE THYROXINE INDEX T7on FTI 2.05 Normal 1.30-4.50 [facility] Comment on above: Performed By: #### T SH, CMP, LIPID, T7, URIC #### [facility] [address] [address] [address] Shabnam Rae T3U 33.0 % Normal 33.0-40.0 [facility] Comment on above: Performed By: #### T SH, CMP, LIPID, T7, URIC #### [facility] [address] [place] [address] Dr. Shabnam Rae T4 [Mass/Vol] 6.20 ug/dL Normal 4.50-12.10 [facility] Comment on above: Performed By: #### T SH, CMP, LIPID, T7, URIC #### [facility] [address] [address] [address] Shabnam Rae GLYCOHEMOGLOBIN A1Con 2022 ADA RECOMMENDATION SEE BELOW Normal [facility] Comment on above: Result Comment: ADA RECOMMENDED LIMIT 4.0 - 6.0 ADA THERAPEUTIC TARGET < 7.0 ACTION SUGGESTED > 7.0 Performed By: #### P SASC #### [facility] [address] [address] [address] Shabnam Rae Glucose [Mass/Vol] 114 mg/dL Normal [facility] Comment on above: Performed By: #### P SASC #### [facility] [address] [address] [address] Shabnam Rae HbA1c (Bld) [Mass fraction] 5.6 % Normal 4.5-6.2 [facility] Comment on above: Performed By: #### P SASC #### [facility] [address] [place] [address] Dr. Shabnam Rae LIPID PROFILEon 12-01-2022 CHOL-HDL RATIO NORM SEE BELOW Normal [facility] Comment on above: Result Comment: 3.3 - 4.4 LOW RISK 4.4 - 7.1 AVERAGE RISK 7.1 - 11.0 MODERATE RISK >11.0 HIGH RISK Performed By: #### T SH, CMP, LIPID, T7, URIC #### [facility] [address] [address] [address] Shabnam Rae Cholesterol [Mass/Vol] 176 mg/dL Normal <=200 [facility] Comment on above: Performed By: #### T SH, CMP, LIPID, T7, URIC #### [facility] [address] [address] [address] Shabnam Rae Cholesterol in HDL [Mass/Vol] 48 mg/dL Normal 40-60 [facility] Comment on above: Performed By: #### T SH, CMP, LIPID, T7, URIC #### [facility] [address] [place] [address] Dr. Shabnam Rae Cholesterol in LDL [Mass/Vol] 108.2 mg/dL Normal [facility] Comment on above: Performed By: #### T SH, CMP, LIPID, T7, URIC #### [facility] [address] [address] [address] Shabnam Rae Cholesterol.total/Ch olesterol in HDL [Mass ratio] 3.7 {ratio} Normal [facility] Comment on above: Performed By: #### T SH, CMP, LIPID, T7, URIC #### [facility] [address] [place] [address] Dr. Shabnam Rae HDL NORMAL > or = 60 mg/dl - LOW CARDIOVASCULAR RISK <40 mg/dl - HIGH CARDIOVASCULAR RISK Normal [facility] Comment on above: Performed By: #### T SH, CMP, LIPID, T7, URIC #### [facility] [address] [place] [address] Dr. Shabnam Rae LDL CALC NORMAL SEE BELOW Normal [facility] Comment on above: Result Comment: <100 mg/dl OPTIMAL 100 - 129 mg/dl NEAR OR ABOVE OPTIMAL 130 - 159 mg/dl BORDERLINE HIGH 160 - 189 mg/dl HIGH >190 mg/dl VERY HIGH Performed By: #### T SH, CMP, LIPID, T7, URIC #### [facility] [address] [address] [address] Shabnam Rae Triglyceride [Mass/Vol] 99 mg/dL Normal <=150 [facility] Comment on above: Performed By: #### T SH, CMP, LIPID, T7, URIC #### [facility] [address] [address] [address] Shabnam Rae VLDL CALC 19.8 mg/dL Normal [facility] Comment on above: Performed By: #### T SH, CMP, LIPID, T7, URIC #### [facility] [address] [address] [address] Shabnam Rae PROF 14(COMP METB)on 023 Albumin [Mass/Vol] 4.1 g/dL Normal 3.4-5.0 [facility] Comment on above: Performed By: #### T SH, CMP, LIPID, T7, URIC #### [facility] [address] [address] [address] Shabnam Rae Albumin/Globulin [Mass ratio] 1.1 {ratio} Normal [facility] Comment on above: Performed By: #### T SH, CMP, LIPID, T7, URIC #### [facility] [address] [address] [address] Shabnam Rae ALP [Catalytic activity/Vol] 101 U/L Normal 46-116 [facility] Comment on above: Performed By: #### T SH, CMP, LIPID, T7, URIC #### [facility] [address] [address] [address] Shabnam Rae ALT [Catalytic activity/Vol] 26 U/L Normal 16-63 [facility] Comment on above: Performed By: #### T SH, CMP, LIPID, T7, URIC #### [facility] [address] [address] [address] Shabnam Rae Anion gap [Moles/Vol] 10.1 mmol/L Normal [facility] Comment on above: Performed By: #### T SH, CMP, LIPID, T7, URIC #### [facility] [address] [address] [address] Shabnam Rae AST [Catalytic activity/Vol] 19 U/L Normal 15-37 [facility] Comment on above: Performed By: #### T SH, CMP, LIPID, T7, URIC #### [facility] [address] [place] [address] Dr. Shabnam Rae Bilirubin [Mass/Vol] 0.8 mg/dL Normal 0.2-1.0 [facility] Comment on above: Performed By: #### T SH, CMP, LIPID, T7, URIC #### [facility] [address] [place] [address] Dr. Shabnam Rae Calcium [Mass/Vol] 9.5 mg/dL Normal 8.5-10.1 [facility] Comment on above: Performed By: #### T SH, CMP, LIPID, T7, URIC #### [facility] [address] [place] [address] Dr. Shabnam Rae Chloride [Moles/Vol] 102 mmol/L Normal 98-107 [facility] Comment on above: Performed By: #### T SH, CMP, LIPID, T7, URIC #### [facility] [address] [place] [address] Dr. hSabnam Rae CO2 [Moles/Vol] 32.4 mmol/L Critically high 21.0-32.0 [facility] Comment on above: Performed By: #### T SH, CMP, LIPID, T7, URIC #### [facility] [address] [place] [address] Dr. Shabnam Rae Creatinine [Mass/Vol] 1.00 mg/dL Normal 0.70-1.30 [facility] Comment on above: Performed By: #### T SH, CMP, LIPID, T7, URIC #### [facility] [address] [place] [address] Dr. Shabnam Rae EGFR-AF NICARAGUAN >60 Normal >=60 [facility] Comment on above: Performed By: #### T SH, CMP, LIPID, T7, URIC #### [facility] [address] [place] [address] Dr. Shabnam Rae EGFR-NON AF NICARAGUAN >60 Normal >=60 [facility] Comment on above: Performed By: #### T SH, CMP, LIPID, T7, URIC #### [facility] [address] [place] [address] Dr. Shabnam Rae Globulin (S) [Mass/Vol] 3.8 g/dL Normal [facility] Comment on above: Performed By: #### T SH, CMP, LIPID, T7, URIC #### [facility] [address] [place] [address] Dr. Shabnam Rae Glucose [Mass/Vol] 94 mg/dL Normal 74-106 [facility] Comment on above: Performed By: #### T SH, CMP, LIPID, T7, URIC #### [facility] [address] [place] [address] Dr. Shabnam Rae Potassium [Moles/Vol] 3.5 mmol/L Normal 3.5-5.1 [facility] Comment on above: Performed By: #### T SH, CMP, LIPID, T7, URIC #### [facility] [address] [place] [address] Dr. Shabnam Rae Protein [Mass/Vol] 7.9 g/dL Normal 6.4-8.2 [facility] Comment on above: Performed By: #### T SH, CMP, LIPID, T7, URIC #### [facility] [address] [place] [address] Dr. Shabnam Rae Sodium [Moles/Vol] 141 mmol/L Normal 136-145 [facility] Comment on above: Performed By: #### T SH, CMP, LIPID, T7, URIC #### [facility] [address] [place] [address] Dr. Shabnam Rae Urea nitrogen [Mass/Vol] 15.0 mg/dL Normal 7.0-18.0 [facility] Comment on above: Performed By: #### T SH, CMP, LIPID, T7, URIC #### [facility] [address] [place] [address] Dr. Shabnam Rae Urea nitrogen/Creatinine [Mass ratio] 15.0 mg/mg Normal [facility] Comment on above: Performed By: #### T SH, CMP, LIPID, T7, URIC #### [facility] [address] [place] [address] Dr. Shabnam Rae TSHon 12-01-2022 TSH 1.504 uIU/mL Normal 0.358-3.740 [facility] Comment on above: Performed By: #### T SH, CMP, LIPID, T7, URIC #### [facility] [address] [place] [address] Dr. Shabnam Rae URIC ACID SERUMon 12-01-2022 Urate [Mass/Vol] 6.9 mg/dL Normal 3.5-7.2 [facility] Comment on above: Performed By: #### T SH, CMP, LIPID, T7, URIC #### [facility] [address] [place] [address] Dr. Shabnam Rae TESTOSTERONE, TOTALon 2021 Testosterone [Mass/Vol] 244 ng/dL Critically low 264-916 [facility] Comment on above: Result Comment: Adul t male reference interval is based on a population of healthy nonobese males (BMI <30) between 19 and 39 years old. Dima, et.al. JCEM 2017,102;4129-7380. PMID: 92693690. Performed By: #### P SAFREE #### [facility] [address] [place] [address] Dr. Shabnam Rae TESTOSTERONE, FREE,DIRECT, T OTALon 03-16-2022 Free Testosterone(Direct) 2.1 pg/mL Critically low 7.2-24.0 [facility] Comment on above: Result Comment: Perf ormed at: BN Performed By: #### C VDTBH #### [facility] [address] [place] [address] Dr. Shabnam Rae Testosterone [Mass/Vol] 252 ng/dL Critically low 264-916 [facility] Comment on above: Result Comment: Adul t male reference interval is based on a population of healthy nonobese males (BMI <30) between 19 and 39 years old. Travison, et.al. JCEM 2017,102;4379-2823. PMID: 33760186. Performed at: CB Performed By: #### C VDTBH #### [facility] [address] [address] [address] Shabnam Rae Formson 02-26-2022 Forms [id number] 7#1.00CD:[address] [facility] Screenson 02-26-2022 Screens [id number] 7#1.00CD:[address] [facility] Screens [id number] #1.00CD:[address] [facility] Urology Office/Clinic Noteon 02-26-2022 Urology Office/Clinic [...] qualifying data (more content not included)... Normal [facility] Comment on above: Result Comment: Elec tronically Signed By: Viola Grullon MD\.br\Date and Time Signed: 02/26/22 00:20 EDT\.br\Electronically Co-Signed By: Helen Leung\.br\Date and Time Co-Signed: 02/25/22 11:16 EDT Ambulatory Visit Summaryon 0 02-25-2022 Ambulatory Visit Summary MATTY GARCES :1970 Visit Date:02/25/2022 Ambulatory Visit Instructions Your Diagnosis Hydrocele Varicocele BPH without urinary obstruction Tests Performed Urnls Dip Stick Auto w/o Microscopy POC 03372 Your Care Team Attending Physician - Viola [...] Following Appointments Follow Up with Mitchel DELGADO, [place] Gregorio, URO When: Where: Test Results Urnls Dip Stick Auto w/o Microscopy POC 35786 (02/25/2022) Bilirubin Urine Dipstick - Negative Blood Urine Dipstick - Negative Glucose Urine Dipstick - Negative Ketones Urine Dipstick - Negative Leukocytes Urine Dipstick - Negative Nitrite Urine Dipstick - Negative Protein Urine Dipstick - Negative Specific Hatley Urine Dipstick - >=1.030 Urine Appearance Urine [...] the hydrocele for any changes. ? Take rxmq-dkp-srbrdok and prescription medicines only as told by [...] the hydrocele for any changes. ? Take qlkv-dcq-mxsmweo and prescription medicines only as told by [...] 02/17/2011 Document Revised: 09/10/2018 Document Reviewed: 09/10/2018 [employer] Patient Education ? [address] [employer] [facility] ED Note-Physicianon 02-04-20 22 ED Note-Physician [id number] 62#1.00CD:[address] [facility] RAD - Ultrasound Reporton RAD - Ultrasound Report [id number] #1.00CD:[address] [facility] RAD - CT Reporton 02-02-2022 RAD - CT Report [id number] 55#[id number]:[address] [facility] RAD - CT Report [id number]#[id number]:[address] [facility] CBC AUTO DIFFon 01-05-2022 BASO # 0.0 103/ul Normal 0.0-0.1 [facility] Comment on above: Performed By: #### P SAFREE #### [facility] [address] [place] [address] Dr. Shabnam Rae Basophils/100 WBC (Bld) 0.6 % Normal 0.2-2.0 [facility] Comment on above: Performed By: #### P SAFREE #### [facility] [address] [place] [address] Dr. Shabnam Rae EO # 0.1 103/ul Normal 0.0-0.7 [facility] Comment on above: Performed By: #### P SAFREE #### [facility] [address] [place] [address] Dr. Shabnam Rae Eosinophils/100 WBC (Bld) 2.1 % Normal 0.9-7.0 [facility] Comment on above: Performed By: #### P SAFREE #### [facility] [address] [place] [address] Dr. Shabnam Rae Erythrocyte distribution width (RBC) [Ratio] 13.1 % Normal 11.0-15.0 [facility] Comment on above: Performed By: #### P SAFREE #### [facility] [address] [place] [address] Dr. Shbanam Rae Hematocrit (Bld) [Volume fraction] 43.1 % Normal 42.0-54.0 [facility] Comment on above: Performed By: #### P SAFREE #### [facility] [address] [place] [address] Dr. Shabnam Rae Hemoglobin (Bld) [Mass/Vol] 13.7 g/dL Critically low 14.0-18.0 [facility] Comment on above: Performed By: #### P SAFREE #### [facility] [address] [address] [address] Shabnam Rae IG # 0.04 10e3/ul Critically high 0.00-0.03 [facility] Comment on above: Performed By: #### P SAFREE #### [facility] [address] [place] [address] Dr. Shabnam aRe IG % 0.6 % Critically high 0.0-0.5 [facility] Comment on above: Performed By: #### P SAFREE #### [facility] [address] [place] [address] Dr. Shabnam Rae LYMPH # 0.9 103/ul Critically low 1.2-3.8 [facility] Comment on above: Performed By: #### P SAFREE #### [facility] [address] [place] [address] Dr. Shabnma Rae Lymphocytes/100 WBC (Bld) 13.1 % Critically low 20.5-60.0 [facility] Comment on above: Performed By: #### P SAFREE #### [facility] [address] [place] [address] Dr. Shabnam Rae MANUAL DIFF REQ NO Normal [facility] Comment on above: Performed By: #### P SAFREE #### [facility] [address] [place] [address] Dr. Shabnam Rae MCH (RBC) [Entitic mass] 29.5 pg Normal 25.9-34.0 [facility] Comment on above: Performed By: #### P SAFREE #### [facility] [address] [place] [address] Dr. Shabnam Rae MCHC (RBC) [Mass/Vol] 31.8 g/dL Normal 29.9-35.2 [facility] Comment on above: Performed By: #### P SAFREE #### [facility] [address] [place] [address] Dr. Shabnam Rae MCV (RBC) [Entitic vol] 92.9 fL Normal 80.0-94.0 [facility] Comment on above: Performed By: #### P SAFREE #### [facility] [address] [address] [address] Shabnam Rae MONO # 0.4 103/ul Normal 0.3-0.8 [facility] Comment on above: Performed By: #### P SAFREE #### [facility] [address] [place] [address] Dr. Shabnam Rae Monocytes/100 WBC (Bld) 5.4 % Normal 1.7-12.0 [facility] Comment on above: Performed By: #### P SAFREE #### [facility] [address] [place] [address] Dr. Shabnam Rae NEUT # 5.2 103/ul Normal 1.4-6.5 [facility] Comment on above: Performed By: #### P SAFREE #### [facility] [address] [place] [address] Dr. Shabnam Rae Neutrophils/100 WBC (Bld) 78.2 % Critically high 43.0-75.0 [facility] Comment on above: Performed By: #### P SAFREE #### [facility] [address] [place] [address] Dr. Shabnam Rae Platelet mean volume (Bld) [Entitic vol] 10.9 fL Normal 9.5-13.5 [facility] Comment on above: Performed By: #### P SAFREE #### [facility] [address] [place] [address] Dr. Shabnam Rae PLT 153 103/ul Normal 150-450 [facility] Comment on above: Performed By: #### P SAFREE #### [facility] [address] [place] [address] Dr. Shabnam Rae RBC 4.64 106/ul Critically low 4.70-6.10 [facility] Comment on above: Performed By: #### P SAFREE #### [facility] [address] [place] [address] Dr. Shabnam Rae WBC 6.6 103/ul Normal 4.0-11.0 [facility] Comment on above: Performed By: #### P SAFREE #### [facility] [address] [place] [address] Dr. Shabnam Rae CRPon 01-05-2022 CRP 0.9 mg/dL Normal <=1.0 [facility] Comment on above: Performed By: #### P SAFREE #### [facility] [address] [place] [address] Dr. Shabnam Rae PROF 14(COMP METB)on 022 Albumin [Mass/Vol] 3.6 g/dL Normal 3.4-5.0 [facility] Comment on above: Performed By: #### P SAFREE #### [facility] [address] [place] [address] Dr. Shabnam Rae Albumin/Globulin [Mass ratio] 1.0 {ratio} Normal [facility] Comment on above: Performed By: #### P SAFREE #### [facility] [address] [place] [address] Dr. Shabnam Rae ALP [Catalytic activity/Vol] 114 U/L Normal 46-116 [facility] Comment on above: Performed By: #### P SAFREE #### [facility] [address] [place] [address] Dr. Shabnam Rae ALT [Catalytic activity/Vol] 26 U/L Normal 16-63 [facility] Comment on above: Performed By: #### P SAFREE #### [facility] [address] [place] [address] Dr. Shabnam Rae Anion gap [Moles/Vol] 9.3 mmol/L Normal [facility] Comment on above: Performed By: #### P SAFREE #### [facility] [address] [place] [address] Dr. Shabnam Rae AST [Catalytic activity/Vol] 19 U/L Normal 15-37 [facility] Comment on above: Performed By: #### P SAFREE #### [facility] [address] [place] [address] Dr. Shabnam Rae Bilirubin [Mass/Vol] 0.5 mg/dL Normal 0.2-1.0 [facility] Comment on above: Performed By: #### P SAFREE #### [facility] [address] [place] [address] Dr. Shabnam Rae Calcium [Mass/Vol] 8.9 mg/dL Normal 8.5-10.1 [facility] Comment on above: Performed By: #### P SAFREE #### [facility] [address] [place] [address] Dr. Shabnam Rae Chloride [Moles/Vol] 106 mmol/L Normal 98-107 [facility] Comment on above: Performed By: #### P SAFREE #### [facility] [address] [address] [address] Shabnam Rae CO2 [Moles/Vol] 30.7 mmol/L Normal 21.0-32.0 [facility] Comment on above: Performed By: #### P SAFREE #### [facility] [address] [place] [address] Dr. Shabnam Rae Creatinine [Mass/Vol] 1.15 mg/dL Normal 0.70-1.30 [facility] Comment on above: Performed By: #### P SAFREE #### [facility] [address] [place] [address] Dr. Shabnam Rae EGFR-AF NICARAGUAN >60 Normal >=60 [facility] Comment on above: Performed By: #### P SAFREE #### [facility] [address] [place] [address] Dr. Shabnam Rae EGFR-NON AF NICARAGUAN >60 Normal >=60 [facility] Comment on above: Performed By: #### P SAFREE #### [facility] [address] [place] [address] Dr. Shabnam Rae Globulin (S) [Mass/Vol] 3.6 g/dL Normal [facility] Comment on above: Performed By: #### P SAFREE #### [facility] [address] [place] [address] Dr. Shabnam Rae Glucose [Mass/Vol] 117 mg/dL Critically high 74-106 [facility] Comment on above: Performed By: #### P SAFREE #### [facility] [address] [place] [address] Dr. Shabnam Rae Potassium [Moles/Vol] 4.0 mmol/L Normal 3.5-5.1 [facility] Comment on above: Performed By: #### P SAFREE #### [facility] [address] [address] [address] Shabnam Rae Protein [Mass/Vol] 7.2 g/dL Normal 6.1-8.2 [facility] Comment on above: Performed By: #### P SAFREE #### [facility] [address] [place] [address] Dr. Shabnam Rae Sodium [Moles/Vol] 142 mmol/L Normal 136-145 [facility] Comment on above: Performed By: #### P SAFREE #### [facility] [address] [place] [address] Dr. Shabnam Rae Urea nitrogen [Mass/Vol] 15.0 mg/dL Normal 7.0-18.0 [facility] Comment on above: Performed By: #### P SAFREE #### [facility] [address] [place] [address] Dr. Shabnam Rae Urea nitrogen/Creatinine [Mass ratio] 13.0 mg/mg Normal [facility] Comment on above: Performed By: #### P SAFREE #### [facility] [address] [place] [address] Dr. Shabnam Rae US SCROTUMon 01-05-2022 US [...] ALVINA CAICEDO Date: 2022-01-05 08:48 Normal [facility] CBC AUTO DIFFon 01-04-2022 BASO # 0.1 103/ul Normal 0.0-0.1 [facility] Comment on above: Performed By: #### C BC #### [facility] [address] [place] [address] Dr. Shabnam Rae Basophils/100 WBC (Bld) 0.8 % Normal 0.2-2.0 [facility] Comment on above: Performed By: #### C BC #### [facility] [address] [place] [address] Dr. Shabnam Rae EO # 0.1 103/ul Normal 0.0-0.7 [facility] Comment on above: Performed By: #### C BC #### [facility] [address] [place] [address] Dr. Shabnam Rae Eosinophils/100 WBC (Bld) 1.5 % Normal 0.9-7.0 [facility] Comment on above: Performed By: #### C BC #### [facility] [address] [place] [address] Dr. Shabnam Rae Erythrocyte distribution width (RBC) [Ratio] 12.8 % Normal 11.0-15.0 [facility] Comment on above: Performed By: #### C BC #### [facility] [address] [place] [address] Dr. Shabnam Rae Hematocrit (Bld) [Volume fraction] 40.3 % Critically low 42.0-54.0 [facility] Comment on above: Performed By: #### C BC #### [facility] [address] [place] [address] Dr. Shabnam Rae Hemoglobin (Bld) [Mass/Vol] 13.4 g/dL Critically low 14.0-18.0 [facility] Comment on above: Performed By: #### C BC #### [facility] [address] [place] [address] Dr. Shabnam Rae IG # 0.03 10e3/ul Normal 0.00-0.03 [facility] Comment on above: Performed By: #### C BC #### [facility] [address] [place] [address] Dr. Shabnam Rae IG % 0.5 % Normal 0.0-0.5 [facility] Comment on above: Performed By: #### C BC #### [facility] [address] [place] [address] Dr. Shabnam Rae LYMPH # 1.0 103/ul Critically low 1.2-3.8 [facility] Comment on above: Performed By: #### C BC #### [facility] [address] [place] [address] Dr. Shabnam Rae Lymphocytes/100 WBC (Bld) 16.4 % Critically low 20.5-60.0 [facility] Comment on above: Performed By: #### C BC #### [facility] [address] [place] [address] Dr. Shabnam Rae MANUAL DIFF REQ NO Normal [facility] Comment on above: Performed By: #### C BC #### [facility] [address] [place] [address] Dr. Shabnam Rae MCH (RBC) [Entitic mass] 29.5 pg Normal 25.9-34.0 [facility] Comment on above: Performed By: #### C BC #### [facility] [address] [place] [address] Dr. Shabnam Rae MCHC (RBC) [Mass/Vol] 33.3 g/dL Normal 29.9-35.2 [facility] Comment on above: Performed By: #### C BC #### [facility] [address] [place] [address] Dr. Shabnam Rae MCV (RBC) [Entitic vol] 88.8 fL Normal 80.0-94.0 [facility] Comment on above: Performed By: #### C BC #### [facility] [address] [place] [address] Dr. Shabnam Rae MONO # 0.6 103/ul Normal 0.3-0.8 [facility] Comment on above: Performed By: #### C BC #### [facility] [address] [place] [address] Dr. Shabnam Rae Monocytes/100 WBC (Bld) 9.6 % Normal 1.7-12.0 [facility] Comment on above: Performed By: #### C BC #### [facility] [address] [place] [address] Dr. Shabnam Rae NEUT # 4.4 103/ul Normal 1.4-6.5 [facility] Comment on above: Performed By: #### C BC #### [facility] [address] [place] [address] Dr. Shabnam Rae Neutrophils/100 WBC (Bld) 71.2 % Normal 43.0-75.0 [facility] Comment on above: Performed By: #### C BC #### [facility] [address] [place] [address] Dr. Shabnam Rae Platelet mean volume (Bld) [Entitic vol] 10.8 fL Normal 9.5-13.5 [facility] Comment on above: Performed By: #### C BC #### [facility] [address] [place] [address] Dr. Shabnam Rae PLT 158 103/ul Normal 150-450 [facility] Comment on above: Performed By: #### C BC #### [facility] [address] [place] [address] Dr. Shabnam Rae RBC 4.54 106/ul Critically low 4.70-6.10 [facility] Comment on above: Performed By: #### C BC #### [facility] [address] [place] [address] Dr. Shabnam Rae WBC 6.2 103/ul Normal 4.0-11.0 [facility] Comment on above: Performed By: #### C #### [facility] [address] [address] [address] ABD/PELV W CONon [...] MAYRA BERNAL Date: 2022-01-04 05:19 Normal [facility] CT PELVIS WO CONon 2 CT [...] MANUEL BRENNANH Date: 2022-01-04 08:54 Normal [facility] CULTURE URINEon 01-04-2022 CULTURE URINE Culture Observations: No growth Normal [facility] Comment on above: Performed By: #### P [facility] #### [facility] [address] [place] [address] Dr. Shabnam Rae Covid-19 PCR ([facility])on 12-13 SARS-CoV-2 (COVID-19) RNA ELIJAH+probe Ql (Unsp spec) Not detected Normal NOT DETECTED [facility] Comment on above: Result Comment: When diagnostic testing is negative, the possibility of a false negative should be considered in the context of a patient's recent exposures and the presence of clinical signs and symptoms consistent with SARS-CoV-2. This test is not yet approved or cleared by the [place] Food and Drug Administration (FDA). This test was developed by [employer], [place], [place]. The performance characteristics of this test were validated by [facility]. The results are not intended to be used as the sole means for clinical diagnosis or patient management decisions. [facility] is authorized under Clinical Laboratory Improvement [...] for this test is supported by the [place] of Health and Human Service's declaration that [...] used). Performed By: #### C [facility] #### [facility] [address] [place] [address] Dr. Shabnam Rae ER URINE PROFILEon 2 Bilirubin Ql (U) Negative Normal NEGATIVE The [facility] Comment on above: Performed By: #### P SASC #### [facility] [address] [place] [address] Dr. Shabnam Rea Clarity (U) CLEAR Normal CLEAR [facility] Comment on above: Performed By: #### P SASC #### [facility] [address] [place] [address] Dr. Shabnam Rae Color (U) YELLOW Normal YELLOW [facility] Comment on above: Performed By: #### P SASC #### [facility] [address] [place] [address] Dr. Shabnam Rae ERUAHD A micrscopic examination will be performed if indicated. Normal [facility] Comment on above: Performed By: #### P SASC #### [facility] [address] [address] [address] Shabnam Rae Glucose Ql (U) Negative Normal NEGATIVE [facility] Comment on above: Performed By: #### P SASC #### [facility] [address] [address] [address] Shabnam Rae Hemoglobin Ql (U) Negative Normal NEGATIVE [facility] Comment on above: Performed By: #### P SASC #### [facility] [address] [address] [address] Shabnam Rae Ketones Ql (U) Negative Normal NEGATIVE [facility] Comment on above: Performed By: #### P SASC #### [facility] [address] [place] [address] Dr. Shabnam Rae LEUKOCYTES Negative Normal NEGATIVE [facility] Comment on above: Performed By: #### P SASC #### [facility] [address] [place] [address] Dr. Shabnam Rea Nitrite Ql (U) Negative Normal NEGATIVE [facility] Comment on above: Performed By: #### P SASC #### [facility] [address] [place] [address] Dr. Shabnam Rae pH (U) 6.5 [pH] Normal 5-9 [facility] Comment on above: Performed By: #### P SASC #### [facility] [address] [place] [address] Dr. Shabnam Rae SPEC GRAVITY 1.010 Normal 1.005-<=1.025 [facility] Comment on above: Performed By: #### P SASC #### [facility] [address] [place] [address] Dr. Shabnam Rae UA PROTEIN Negative Normal NEGATIVE/ TRACE [facility] Comment on above: Performed By: #### P SASC #### [facility] [address] [place] [address] Dr. Shabnam Rae UR MICRO IND NOT INDICATED Normal [facility] Comment on above: Performed By: #### P SASC #### [facility] [address] [place] [address] Dr. Shabnam Rae Urobilinogen Qn (U) 0.2 {Sarai'U}/dL Normal 0.2 - 1. 0 [facility] Comment on above: Performed By: #### P SASC #### [facility] [address] [place] [address] Dr. Shabnam Rae LACTATE/LACTIC ACIDon 2021 Lactate [Moles/Vol] 1.0 mmol/L Normal 0.4-2.0 [facility] Comment on above: Performed By: #### P SASC #### [facility] [address] [place] [address] Dr. Shabnam Rae PROF CHEM 8 (BAS METB)on Anion gap [Moles/Vol] 10.0 mmol/L Normal [facility] Comment on above: Performed By: #### B MP #### [facility] [address] [place] [address] Dr. Shabnam Rae Calcium [Mass/Vol] 8.5 mg/dL Normal 8.5-10.1 [facility] Comment on above: Performed By: #### B MP #### [facility] [address] [place] [address] Dr. Shabnam Rae Chloride [Moles/Vol] 103 mmol/L Normal 98-107 [facility] Comment on above: Performed By: #### B MP #### [facility] [address] [place] [address] Dr. Shabnam Rae CO2 [Moles/Vol] 29.2 mmol/L Normal 21.0-32.0 The [facility] Comment on above: Performed By: #### B MP #### [facility] [address] [place] [address] Dr. Shabnam Rae Creatinine [Mass/Vol] 1.25 mg/dL Normal 0.70-1.30 [facility] Comment on above: Performed By: #### B MP #### [facility] [address] [place] [address] Dr. Shabnam Rae EGFR-AF NICARAGUAN >60 Normal >=60 The [facility] Comment on above: Performed By: #### B MP #### [facility] [address] [address] [address] Shabnam Rae EGFR-NON AF NICARAGUAN >60 Normal >=60 [facility] Comment on above: Performed By: #### B MP #### [facility] [address] [address] [address] Shabnam Rae Glucose [Mass/Vol] 132 mg/dL Critically high 74-106 [facility] Comment on above: Performed By: #### B MP #### [facility] [address] [address] [address] Shabnam Rae Potassium [Moles/Vol] 3.2 mmol/L Critically low 3.5-5.1 [facility] Comment on above: Performed By: #### B MP #### [facility] [address] [address] [address] Shabnam Rae Sodium [Moles/Vol] 139 mmol/L Normal 136-145 [facility] Comment on above: Performed By: #### B MP #### [facility] [address] [address] [address] Shabnam Rae Urea nitrogen [Mass/Vol] 19.0 mg/dL Critically high 7.0-18.0 [facility] Comment on above: Performed By: #### B MP #### [facility] [address] [place] [address] Dr. Shabnam Rae Urea nitrogen/Creatinine [Mass ratio] 15.2 mg/mg Normal [facility] Comment on above: Performed By: #### B MP #### [facility] [address] [place] [address] Dr. Shabnam Rae CERVICAL SPINE 2 OR 3 [facility] 07-06-2019 CERVICAL SPINE 2 OR 3 [facility] Department of Radiology [address] [place] [address] Patient Name: MATTY GARCES : [...] findings. Electronically signed by:Bernice Hoyt. Transcribed by: [email or web address], User Resident: RADHA CHIN Electronically Signed by: BERNICE HOYT @ 07/06/2019 08:52 PM I personally read this/these film(s) with this resident Normal [facility] Comment on above: Order Comment: , STA T READ , STAT READ , , , Ordering Provider - LUCIANO VIEIRA MD , CERVICAL SPINE 2 OR 3 [facility] 04-06-2019 CERVICAL SPINE 2 OR 3 [facility] Department of Radiology [address] [place] [id number] Patient Name: MATTY GARCES : 1970 [...] FALLS Exam: CERVICAL SPINE 2 OR 3 [facility] CERVICAL SPINE 2 OR 3 [facility] 04/06/2019 7:28 AM EDT SIGNS AND SYMPTOMS: [...] study. Electronically signed by:Bernice Hoyt. Transcribed by: [email or web address], User Resident: Electronically Signed by: BERNICE HOYT @ 04/06/2019 04:40 PM Normal [facility] Comment on above: Order Comment: AP/LA T, ODONTOID PLEASE DO SWIMMER'S VIEW FOLLOW UP HARDWARE AND ALIGNMENT, S/P ACDF, RECENT FALLS CERVICAL SPINE 2 OR 3 [facility] 02-17-2019 CERVICAL SPINE 2 OR 3 [facility] Department of Radiology [address] [place] [id number] Patient Name: MATTY GARCES : 1970 [...] findings. Electronically signed by:Bella King. Transcribed by: [email or web address], User Resident: EMILE TINAJERO Electronically Signed by: BELLA KING @ 02/20/2019 11:53 AM I personally read this/these film(s) with this resident Normal [facility] Comment on above: Order Comment: C-SPI NE 2 OR 3 VIEW POSTOP, EVALUATION HARDWARE AN ALIGNMENT BASIC METABOLIC PANELon 05-2 Calcium [Mass/Vol] 9.2 mg/dL Normal 8.6-10.3 [facility] Comment on above: Order Comment: No: D o not add to previous draw Performed By: #### 5 0103 #### [facility] [address] [place] [address], [place] Chloride [Moles/Vol] 101 mmol/L Normal 98-107 [facility] Comment on above: Order Comment: No: D o not add to previous draw Performed By: #### 5 0103 #### [facility] [address] [place] [address], [place] CO2 [Moles/Vol] 26 mmol/L Normal 21-31 [facility] Comment on above: Order Comment: No: D o not add to previous draw Performed By: #### 5 0103 #### [facility] [address] [place] [address], [place] Creatinine [Mass/Vol] 1.02 mg/dL Normal 0.70-1.30 [facility] Comment on above: Order Comment: No: D o not add to previous draw Performed By: #### 5 0103 #### [facility] [address] [place] [address], [place] GFR/1.73 sq M predicted among blacks MDRD (S/P/Bld) [Vol rate/Area] mL/min/{1.73_m2} Normal >60 [facility] Comment on above: Order Comment: No: D o not add to previous draw Performed By: #### 5 0103 #### [facility] [address] [place] [address], [place] GFR/1.73 sq M predicted among non-blacks MDRD (S/P/Bld) [Vol rate/Area] mL/min/{1.73_m2} Normal >60 [facility] Comment on above: Order Comment: No: D o not add to previous draw Performed By: #### 5 0103 #### [facility] [address] [place] [address], [place] Glucose [Mass/Vol] 124 mg/dL High 70-100 The [facility] Comment on above: Order Comment: No: D o not add to previous draw Performed By: #### 5 0103 #### [facility] [address] [place] [address], [place] Potassium [Moles/Vol] 3.9 mmol/L Normal 3.5-5.1 The [facility] Comment on above: Order Comment: No: D o not add to previous draw Performed By: #### 5 0103 #### [facility] [address] [place] [address], [place] Sodium [Moles/Vol] 137 mmol/L Normal 136-145 The [facility] Comment on above: Order Comment: No: D o not add to previous draw Performed By: #### 5 0103 #### [facility] [address] [place] [address], [facility] Urea nitrogen [Mass/Vol] 15 mg/dL Normal 7-25 The [facility] Comment on above: Order Comment: No: D o not add to previous draw Performed By: #### 5 3 #### [facility] [address] [place] [address], [facility] CBC COMPLETE BLOOD COUNTon 0 - Erythrocyte distribution width (RBC) [Ratio] 13.9 % Normal 11.5-15.0 The [facility] Comment on above: Order Comment: No: D o not add to previous draw Performed By: #### 5 0103 #### [facility] [address] [place] [address], [facility] Hematocrit (Bld) [Volume fraction] 50.0 % Normal 39.0-50.0 The [facility] Comment on above: Order Comment: No: D o not add to previous draw Performed By: #### 5 0103 #### [facility] [address] Hemoglobin (Bld) [Mass/Vol] 16.0 g/dL Normal 13.0-17.0 The [facility] Comment on above: Order Comment: No: D o not add to previous draw Performed By: #### 5 0103 #### [facility] [address] [place] [address], [facility] MCH (RBC) [Entitic mass] 27.5 pg Normal 27.0-33.0 The [facility] Comment on above: Order Comment: No: D o not add to previous draw Performed By: #### 5 0103 #### [facility] [address] [facility] [address] MCHC (RBC) [Mass/Vol] 32.0 g/dL Normal 32.0-35.0 The [facility] Comment on above: Order Comment: No: D o not add to previous draw Performed By: #### 5 0103 #### [facility] [address] [place] [address], [facility] MCV (RBC) [Entitic vol] 85.9 fL Normal 82.0-98.0 The [facility] Comment on above: Order Comment: No: D o not add to previous draw Performed By: #### 5 3 #### [facility] [address] [facility] [address] Nucleated RBC/100 WBC (Bld) [Ratio] 0 % Normal 0-0 The [facility] Comment on above: Order Comment: No: D o not add to previous draw Performed By: #### 5 0103 #### [facility] [address] [place] [address], [facility] PLAT CNT 249 10*3/uL Normal 150-400 The [facility] Comment on above: Order Comment: No: D o not add to previous draw Performed By: #### 5 3 #### [facility] [address] [facility] [address], [facility] RBC (Bld) [#/Vol] 5.82 10*6/uL High 4.20-5.70 The [facility] Comment on above: Order Comment: No: D o not add to previous draw Performed By: #### 5 0103 #### [facility] [address] [place] [address], [facility] WBC (Bld) [#/Vol] 15.85 10*3/uL High 4.00-10.60 [facility] Comment on above: Order Comment: No: D o not add to previous draw Performed By: #### 5 0103 #### [facility] [address] [facility]. [address] Operative Reporton 9 Operative Report MR#: [id number] I [facility] Pt. Name: Matty Garces Room #: [id number] Discharge Date: Birthdate: 1970 OPERATIVE REPORT DATE OF SURGERY: 01/30/2019 SURGEON: Luciano Vieira M.D. 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 POSTOPERATIVE DIAGNOSIS: Failed instrumentation at C6-7 on the right. CURB ATTENDANT: ADENIKE Lugo. ANESTHESIA: Endotracheal, Hogan. PROCEDURES: Redo [...] Vieira M.D. Date Trans: 01/31/2019 02:31 Eze/sasha [id number] cc: Venus Mendez M.D. [address] [facility] [address] [place] The [facility] CERVICAL SPINE 2 OR 3 [facility] 01-30-2019 CERVICAL SPINE 2 OR 3 [facility] Department of Radiology [address] [place] [id number] Patient Name: MATTY GARCES : 1970 [...] documentation Electronically signed by:Justus Montano. Transcribed by: [email or web address], User Resident: Electronically Signed by: JUSTUS MONTANO @ 01/30/2019 04:18 PM Normal The [facility] Comment on above: Order Comment: C6-7 ACDF POC GLUCOSE LABon 01-30-2019 Glucose [Mass/Vol] 106 mg/dL High 70-100 The [facility] Comment on above: Performed By: #### 5 0103 #### [facility] [address] [facility]. [address] *MRSA/MSSA DNA NASALon 01-23 *MRSA/MSSA DNA NASAL Clinical Report: (D ) Specimen: NASAL SWAB Collected: 01/23/2019 15:02 Status: Final Last Updated: 01/23/2019 20:14 MSSA DNA (Final) Methicillin Susceptible Staphylococcus aureus DNA Detected MRSA DNA (Final) No Methicillin Resistant Staphylococcus aureus DNA Detected Normal The [facility] Comment on above: Performed By: #### 5 0103 #### [facility] [address] [facility]. [address] APTTon 01-23-2019 aPTT Coag (Bld) [Time] 35.4 s High 25.0-35.0 The [facility] Comment on above: Result Comment: [...] THIS PURPOSE. Performed By: #### 5 7307, 60273 #### [facility] [address] BASIC METABOLIC PANELon 01-11 Calcium [Mass/Vol] 9.5 mg/dL Normal 8.6-10.3 [facility] Comment on above: Performed By: #### 5 7307, 42016 #### [facility] [address] [facility] [address], [facility] Chloride [Moles/Vol] 101 mmol/L Normal 98-107 The [facility] Comment on above: Performed By: #### 5 7307, 38366 #### [facility] [address] [place] [address], [facility] CO2 [Moles/Vol] 29 mmol/L Normal 21-31 The [facility] Comment on above: Performed By: #### 5 7306, 62675 #### [facility] [address] [place] [address], [place] Creatinine [Mass/Vol] 1.08 mg/dL Normal 0.70-1.30 The [facility] Comment on above: Performed By: #### 5 7306, 02094 #### [facility] [address] [place] [address], [place] GFR/1.73 sq M predicted among blacks MDRD (S/P/Bld) [Vol rate/Area] mL/min/{1.73_m2} Normal >60 The [facility] Comment on above: Performed By: #### 5 7306, 73196 #### [facility] [address] [place] [address], [place] GFR/1.73 sq M predicted among non-blacks MDRD (S/P/Bld) [Vol rate/Area] mL/min/{1.73_m2} Normal >60 The [facility] Comment on above: Performed By: #### 5 7306, 56004 #### [facility] [address] [place] [address], [place] Glucose [Mass/Vol] 87 mg/dL Normal 70-100 The [facility] Comment on above: Performed By: #### 5 7306, 52276 #### [facility] [address] [place] [address], [place] Potassium [Moles/Vol] 4.0 mmol/L Normal 3.5-5.1 The [facility] Comment on above: Performed By: #### 5 73, 55379 #### [facility] [address] [place] [address], [place] Sodium [Moles/Vol] 137 mmol/L Normal 136-145 The [facility] Comment on above: Performed By: #### 5 7307, 47645 #### [facility] [address] [place] [address], [place] Urea nitrogen [Mass/Vol] 12 mg/dL Normal 7-25 The [facility] Comment on above: Performed By: #### 5 73Al, 54931 #### [facility] [address] CBC W/DIFFon 01-23-2019 ABS BASOPHILS 0.1 10*3/uL Normal 0.0-0.2 The [facility] Comment on above: Performed By: #### 5 Al, 63193 #### [facility] [address] [facility]. [address] ABS IMM GRANS 0.0 10*3/uL Normal 0.0-0.2 The [facility] Comment on above: Performed By: #### 5 Al, 75018 #### [facility] [address] ABS NEUTROPHILS 5.3 10*3/uL Normal 1.6-7.[address] [facility] Comment on above: Performed By: #### 5 Al, 90547 #### [facility] [address] Basophils/100 WBC (Bld) 0.9 % Normal 0.0-1.0 The [facility] Comment on above: Performed By: #### 5 Al, 15049 #### [facility] [address] Eosinophils (Bld) [#/Vol] 0.2 10*3/uL Normal 0.0-0.5 The [facility] Comment on above: Performed By: #### 5 Al, 86785 #### [facility] [address] Eosinophils/100 WBC (Bld) 2.3 % Normal 0.0-6.0 The [facility] Comment on above: Performed By: #### 5 Al, 12929 #### [facility] [address] Erythrocyte distribution width (RBC) [Ratio] 13.8 % Normal 11.5-15.0 The [facility] Comment on above: Performed By: #### 5 7306, 05657 #### [facility] [address] [place] [id number], [facility] Hematocrit (Bld) [Volume fraction] 49.6 % Normal 39.0-50.0 The [facility] Comment on above: Performed By: #### 5 7306, 92283 #### [facility] [address] [address], [facility] Hemoglobin (Bld) [Mass/Vol] 16.4 g/dL Normal 13.0-17.0 The [facility] Comment on above: Performed By: #### 5 7306, 21421 #### [facility] [address] [address], [facility] IMMATURE GRANS 0.5 % Normal 0.0-1.0 The [facility] Comment on above: Performed By: #### 5 7306, 80920 #### [facility] [address] [place] [address], [facility] Lymphocytes (Bld) [#/Vol] 1.2 10*3/uL Normal 1.2-4.0 The [facility] Comment on above: Performed By: #### 5 7306, 57894 #### [facility] [address] [place] [address], [facility] Lymphocytes/100 WBC (Bld) 16.6 % Low 20.0-45.0 The [facility] Comment on above: Performed By: #### 5 7306, 35297 #### [facility] [address] [place] [address], [facility] MCH (RBC) [Entitic mass] 27.8 pg Normal 27.0-33.0 The [facility] Comment on above: Performed By: #### 5 7306, 43056 #### [facility] [address] [place] [address], [facility] MCHC (RBC) [Mass/Vol] 33.1 g/dL Normal 32.0-35.0 The [facility] Comment on above: Performed By: #### 5 7306, 37727 #### [facility] [address] [place] [address], [facility] MCV (RBC) [Entitic vol] 84.2 fL Normal 82.0-98.0 The [facility] Comment on above: Performed By: #### 5 7306, 88758 #### [facility] [address] [place] [address], [facility] Monocytes (Bld) [#/Vol] 0.7 10*3/uL Normal 0.1-1.0 The [facility] Comment on above: Performed By: #### 5 7306, 53215 #### [facility] [address] [place] [address], [facility] MONOS 9.4 % Normal 5.0-12.0 The [facility] Comment on above: Performed By: #### 5 7306, 49426 #### [facility] [address] [place] [address], [facility] Neutrophils/100 WBC (Bld) 70.3 % Normal 40.0-72.0 The [facility] Comment on above: Performed By: #### 5 7306, 81892 #### [facility] [address] [place] [address], [facility] Nucleated RBC/100 WBC (Bld) [Ratio] 0 % Normal 0-0 The [facility] Comment on above: Performed By: #### 5 7306, 60308 #### [facility] [address] [place] [id number], [place] PLAT CNT 235 10*3/uL Normal 150-400 The [facility] Comment on above: Performed By: #### 5 73, 19028 #### [facility] [address] [facility] [address] RBC (Bld) [#/Vol] 5.89 10*6/uL High 4.20-5.70 The [facility] Comment on above: Performed By: #### 5 7307, 09361 #### [facility] [address] [facility] [address] WBC (Bld) [#/Vol] 7.48 10*3/uL Normal 4.00-10.60 The [facility] Comment on above: Performed By: #### 5 7307, 79559 #### [facility] [address] [facility]. [address] PROTHROMBIN TIMEon 9 INR Coag (PPP) [Relative time] 1.12 {INR} Normal 0.91-1.16 The [facility] Comment on above: Result Comment: [...] CHEST 1995;108:231S-246S. Performed By: #### 5 7307, 30689 #### [facility] [address] [facility]. [address] PT Coag (PPP) [Time] 14.4 s Normal 12.3-14.8 The [facility] Comment on above: Result Comment: ALL RESULTS MUST BE INTERPRETED WITH RESPECT TO BLOOD DRAWING ARTIFACT OR DILUTION ERROR OF ANTICOAGULANT AT THE TIME OF SAMPLING. Performed By: #### 5 7307, 80273 #### [facility] [address] [facility]. [address] TYPE AND SCREENon 01-23-2019 ABO INTERPRETATION A Normal [facility] Comment on above: Performed By: #### 5 7307, 49615 #### [facility] [address] [facility]. [address] RH INTERPRETATION Positive Normal The [facility] Comment on above: Performed By: #### 5 7307, 63361 #### [facility] [address] [facility]. [address] 3D CERVICAL SPINE WO CONT RASTon 01-12-2019 CT 3D CERVICAL SPINE WO CONTRAST [facility] Department of Radiology [address] [place] [address] Patient Name: MATTY GARCES : 1970 Sex: M Age: Race: White Pt. Location: Patient Status: D Ordered Date: 01/10/2019 2:15:00 PM Completed Date: 01/12/2019 10:32 AM Requesting Provider: LUCIANO VIEIRA Attending Provider: LUCIANO VIEIRA Report Copy To: VENUS MENDEZ Signs & Symptoms: M48.02 Spinal stenosis, cervical region I10 History: [place] para auth # [id number] 01/10/19-02/09/19 [id number] *er Comments: Exam: CT 3D CERVICAL SPINE [...] incomplete Electronically signed by:Ten Garland. Transcribed by: [email or web address], User Resident: Electronically Signed by: TEN GARLAND @ 01/13/2019 09:18 AM Normal The [facility] CERVICAL SPINE 2 OR 3 V[facility]on 01-05-2019 CERVICAL SPINE 2 OR 3 S [facility] Department of Radiology [address] [place] [address] Patient Name: MATTY GARCES : 1970 Sex: M Age: Race: White Pt. Location: Patient Status: O Ordered Date: 01/05/2019 9:00:00 AM Completed Date: 01/05/2019 09:06 AM Requesting Provider: LUCIANO VIEIRA Attending Provider: LUCIANO VIEIRA Report Copy To: Signs & Symptoms: M48.02 Spinal stenosis, cervical region I10 History: [place] Comments: , , , Ordering Provider - LUCIANO VIEIRA MD , Exam: CERVICAL SPINE 2 OR 3 [facility] CERVICAL SPINE 2 OR 3 [facility] 01/05/2019 9:06 AM EDT SIGNS AND SYMPTOMS: [...] findings. Electronically signed by:Ten Garland. Transcribed by: [email or web address], User Resident: SHELLY DELA CRUZ Electronically Signed by: TEN GARLAND @ 01/05/2019 12:37 PM I personally read this/these film(s) with this resident Normal The [facility] Comment on above: Order Comment: , , = ========= , Ordering Provider - LUCIANO VIEIRA MD , CERVICAL SPINE 2 OR 3 [facility] 08-30-2018 CERVICAL SPINE 2 OR 3 [facility] Department of Radiology [address] [place] [phone] Patient Name: MATTY GARCES : 1970 Sex: M Age: Race: White Pt. Location: Patient Status: O Ordered Date: 08/30/2018 9:35:00 AM Completed Date: 08/30/2018 09:43 AM Requesting Provider: LUCIANO VIEIRA Attending Provider: LUCIANO VIEIRA Report Copy To: VENUS MENDEZ Signs & Symptoms: M50.90 Cervical disc disorder, unsp, unspecified cervical region I10 History: [place] Comments: , POST OP XRAY AP/LAT ONLY [...] findings. Electronically signed by:Bella King. Transcribed by: [email or web address], User Resident: RYAN HEAD Electronically Signed by: BELLA KING @ 08/30/2018 05:45 PM I personally read this/these film(s) with this resident Normal The [facility] Comment on above: Order Comment: , POS T OP XRAY AP/LAT ONLY , POST OP XRAY AP/LAT ONLY , , , Ordering Provider - LUCIANO VIEIRA MD , Operative Reporton 8 Operative Report MR#: [id number] I [facility] Pt. Name: Matty Garces Room #: [id number] Discharge Date: Birthdate: 1970 OPERATIVE REPORT DATE OF SURGERY: 08/17/2018 SURGEON: Luciano Vieira M.D. PREOPERATIVE DIAGNOSIS: Herniated cervical disk at C6-7. POSTOPERATIVE DIAGNOSIS: Herniated cervical disk at C6-7. CURB ATTENDANT: ADENIKE Larios. ANESTHESIA: Endotracheal, Braida. PROCEDURE: Anterior [...] Vieira M.D. Date Trans: 08/17/2018 11:25 P/sasha [id number] cc: Venus Mendez M.D. [address] [id number] [place] The [facility] CERVICAL SPINE 2 OR 3 [facility] 08-17-2018 CERVICAL SPINE 2 OR 3 [facility] Department of Radiology [address] [place] [id number] Patient Name: MATTY GARCES : 1970 [...] findings. Electronically signed by:Bernice Hoyt. Transcribed by: [email or web address], User Resident: EMILE TINAJERO Electronically Signed by: BERNICE HOYT @ 08/18/2018 01:06 PM I personally read this/these film(s) with this resident Normal The [facility] Comment on above: Order Comment: C6-7 ACDF with POC GLUCOSE LABon 08-17-2018 Glucose [Mass/Vol] 113 mg/dL High 70-100 The [facility] Comment on above: Performed By: #### 8 5499 #### [facility] [address] [place] [address], [facility] RBC'S 2 UNITSon 08-17-2018 CROSSMATCH INTERP 1 COMP Normal [facility] Comment on above: Performed By: #### 8 6002 #### [facility] [address] [place] [address], [facility] CROSSMATCH INTERP 2 COMP Normal [facility] Comment on above: Performed By: #### 8 6002 #### [facility] [address] [place] [address], [facility] PRODUCT CODE 1 E0336 Normal The [facility] Comment on above: Performed By: #### 8 6002 #### [facility] [address] [place] [address], [facility] PRODUCT CODE 2 E0336 Normal The [facility] Comment on above: Performed By: #### 8 6002 #### [facility] [address] [place] [address], [facility] PRODUCT STATUS [address] [facility] Comment on above: Result Comment: Resu lt changed by IF on 08/20/2018 07:48. The previous value was XM. Performed By: #### 8 6002 #### [facility] [address] [place] [address], [facility] PRODUCT STATUS [address] [facility] Comment on above: Result Comment: Resu lt changed by IF on 08/20/2018 07:48. The previous value was XM. Performed By: #### 8 6002 #### [facility] [address] UNIT ABO 1 A Normal [facility] Comment on above: Performed By: #### 8 6002 #### [facility] [address] [place] [address], [facility] UNIT ABO 2 A Normal The [facility] Comment on above: Performed By: #### 8 6002 #### [facility] [address] UNIT ID 1 [id number] Normal [facility] Comment on above: Performed By: #### 8 6002 #### [facility] [address] UNIT ID 2 [id number] Normal The [facility] Comment on above: Performed By: #### 8 6002 #### [facility] [address] UNIT RH 1 Positive Normal The [facility] Comment on above: Performed By: #### 8 6002 #### [facility] [address] [facility] [address] UNIT RH 2 Positive Normal [facility] Comment on above: Performed By: #### 8 6002 #### [facility] [address] [facility] [address] *MRSA/MSSA CULTUREon 018 *MRSA/MSSA CULTURE Clinical Report: (D) Specimen: NASAL SWAB Collected: 08/02/2018 12:37 Status: Final Last Updated: 08/03/2018 14:26 ISO (Final) No Methicillin Resistant Staphylococcus aureus Isolated (MRSA) ISO (Final) Methicillin Sensitive Staphylococcus aureus (MSSA) Isolated Normal The [facility] Comment on above: Performed By: #### 3 1302 #### [facility] [address] APTTon 08-02-2018 aPTT Coag (Bld) [Time] 31.2 s Normal 25.0-35.0 [facility] Comment on above: Result Comment: ALL [...] THIS PURPOSE. Performed By: #### 5 7307, 80074 #### [facility] [address] [place] [address], [facility] BASIC METABOLIC PANELon 11-2 0 Calcium [Mass/Vol] 9.4 mg/dL Normal 8.6-10.3 [facility] Comment on above: Performed By: #### 0 0071 #### [facility] [address] [place] [address], [facility] Chloride [Moles/Vol] 103 mmol/L Normal 98-107 The [facility] Comment on above: Performed By: #### 0 0071 #### [facility] [address] [place] [address], [facility] CO2 [Moles/Vol] 29 mmol/L Normal 21-31 [facility] Comment on above: Performed By: #### 0 0071 #### [facility] [address] [place] [address], [facility] Creatinine [Mass/Vol] 1.06 mg/dL Normal 0.70-1.30 The [facility] [facility] Comment on above: Performed By: #### 0 0071 #### [facility] [address] [place] [address], [facility] GFR/1.73 sq M predicted among blacks MDRD (S/P/Bld) [Vol rate/Area] mL/min/{1.73_m2} Normal >60 The [facility] Comment on above: Performed By: #### 0 0071 #### [facility] [address] GFR/1.73 sq M predicted among non-blacks MDRD (S/P/Bld) [Vol rate/Area] mL/min/{1.73_m2} Normal >60 The [facility] Comment on above: Performed By: #### 0 0071 #### [facility] [address] [place] [address], [facility] Glucose [Mass/Vol] 84 mg/dL Normal 70-100 The [facility] Comment on above: Performed By: #### 0 0071 #### [facility] [address] Potassium [Moles/Vol] 4.0 mmol/L Normal 3.5-5.1 The [facility] Comment on above: Performed By: #### 0 0071 #### [facility] [address] Sodium [Moles/Vol] 140 mmol/L Normal 136-145 The [facility] Comment on above: Performed By: #### 0 0071 #### [facility] [address] [place] [address], [facility] Urea nitrogen [Mass/Vol] 20 mg/dL Normal 7-25 The [facility] Comment on above: Performed By: #### 0 0071 #### [facility] [address] [place] [address], [facility] CBC W/DIFFon 08-02-2018 ABS BASOPHILS 0.1 10*3/uL Normal 0.0-0.2 The [facility] Comment on above: Performed By: #### 5 3 #### [facility] [address] ABS IMM GRANS 0.1 10*3/uL Normal 0.0-0.2 The [facility] Comment on above: Performed By: #### 5 0103 #### [facility] [address] [place] [address], [facility] ABS NEUTROPHILS 4.2 10*3/uL Normal 1.6-7.6 [facility] Comment on above: Performed By: #### 5 3 #### [facility] [address] [place] [address], [facility] Basophils/100 WBC (Bld) 1.3 % High 0.0-1.0 The [facility] Comment on above: Performed By: #### 5 3 #### [facility] [address] [address], [facility] Eosinophils (Bld) [#/Vol] 0.1 10*3/uL Normal 0.0-0.5 The [facility] Comment on above: Performed By: #### 102 #### [facility] [address] [place] [address], [facility] Eosinophils/100 WBC (Bld) 2.0 % Normal 0.0-6.0 The [facility] Comment on above: Performed By: #### 5 102 #### [facility] [address] Erythrocyte distribution width (RBC) [Ratio] 13.6 % Normal 11.5-15.0 [facility] Comment on above: Performed By: #### 3 #### [facility] [address] [place] [address], [facility] Hematocrit (Bld) [Volume fraction] 44.3 % Normal 39.0-50.0 The [facility] Comment on above: Performed By: #### 5 3 #### [facility] [address] [facility] [address], [facility] Hemoglobin (Bld) [Mass/Vol] 15.1 g/dL Normal 13.0-17.0 The [facility] Comment on above: Performed By: #### 5 3 #### [facility] [address] [place] [address], [facility] IMMATURE GRANS 1.1 % High 0.0-1.0 The Yasmin cantrell [facility] Comment on above: Performed By: #### 5 0103 #### [facility] [address] [address], [facility] Lymphocytes (Bld) [#/Vol] 1.2 10*3/uL Normal 1.2-4.0 The [facility] Comment on above: Performed By: #### 5 0103 #### [facility] [address] [place] [address], [facility] Lymphocytes/100 WBC (Bld) 18.3 % Low 20.0-45.0 The [facility] Comment on above: Performed By: #### 5 0103 #### [facility] [address] [place] [address], [facility] MCH (RBC) [Entitic mass] 29.0 pg Normal 27.0-33.0 The [facility] Comment on above: Performed By: #### 5 0103 #### [facility] [address] [place] [address], [facility] MCHC (RBC) [Mass/Vol] 34.1 g/dL Normal 32.0-35.0 The [facility] Comment on above: Performed By: #### 5 0103 #### [facility] [address] [place] [address], [facility] MCV (RBC) [Entitic vol] 85.0 fL Normal 82.0-98.0 The [facility] Comment on above: Performed By: #### 5 0103 #### [facility] [address] [facility] [address], [facility] Monocytes (Bld) [#/Vol] 0.7 10*3/uL Normal 0.1-1.0 The [facility] Comment on above: Performed By: #### 5 3 #### [facility] [address] [place] [address], [facility] MONOS 11.1 % Normal 5.0-12.0 The [facility] Comment on above: Performed By: #### 5 0103 #### [facility] [address] [facility] [address], [facility] Neutrophils/100 WBC (Bld) 66.2 % Normal 40.0-72.0 The [facility] Comment on above: Performed By: #### 5 0103 #### [facility] [address] [place] [address], [facility] Nucleated RBC/100 WBC (Bld) [Ratio] 0 % Normal 0-0 The [facility] Comment on above: Performed By: #### 5 0103 #### [facility] [address] [place] [address], [facility] PLAT CNT 179 10*3/uL Normal 150-400 The [facility] Comment on above: Performed By: #### 5 0103 #### [facility] [address] [place] [address], [facility] RBC (Bld) [#/Vol] 5.21 10*6/uL Normal 4.20-5.70 The [facility] Comment on above: Performed By: #### 5 3 #### [facility] [address] [facility] [address], [facility] WBC (Bld) [#/Vol] 6.39 10*3/uL Normal 4.00-10.60 The [facility] Comment on above: Performed By: #### 5 102 #### [facility] [address] [place] [address], [facility] CERVICAL SPINE 4 OR 5 VIEWSo n 08-02-2018 CERVICAL SPINE 4 OR 5 VIEWS [facility] Department of Radiology [address] [place] [id number] Patient Name: MATTY GARCES : 1970 Sex: M Age: Race: White Pt. Location: 85 Patient Status: D Ordered Date: 08/02/2018 1:05:00 PM Completed Date: 08/02/2018 01:29 PM Requesting Provider: LUCIANO VIEIRA Attending Provider: LUCIANO VIEIRA Report Copy To: VENUS MENDEZ Signs & Symptoms: Z01.89 Encounter for other specified special examinations I10 History: [place] Comments: , PREOP XRAY AP/LAT \EANDE\ FLEX/EX [...] findings. Electronically signed by:Bella King. Transcribed by: [email or web address], User Resident: EMILE TINAJERO Electronically Signed by: BELLA KING @ 08/03/2018 11:58 AM I personally read this/these film(s) with this resident Normal The [facility] Comment on above: Order Comment: , PRE OP XRAY AP/LAT \EANDE\ FLEX/EX , PREOP XRAY AP/LAT \EANDE\ FLEX/EX , , , Ordering Provider - LUCIANO VIEIRA MD , PROTHROMBIN TIMEon 8 INR Coag (PPP) [Relative time] 1.15 {INR} Normal 0.91-1.16 The [facility] Comment on above: Result Comment: [...] CHEST 1995;108:231S-246S. Performed By: #### 5 7307, [id number] #### [place] [address] [place] [address], [facility] PT Coag (PPP) [Time] 14.7 s Normal 12.3-14.8 The [facility] Comment on above: Result Comment: ALL RESULTS MUST BE INTERPRETED WITH RESPECT TO BLOOD DRAWING ARTIFACT OR DILUTION ERROR OF ANTICOAGULANT AT THE TIME OF SAMPLING. Performed By: #### 5 7307, [id number] #### [facility] [address] [place] [address], [facility] TYPE AND SCREENon 08-02-2018 ABO INTERPRETATION A Normal [facility] Comment on above: Order Comment: 2 uni ts 2 units 2 units 2 units 2 units Performed By: #### 6 2586 #### [facility] [address] [facility] [address], [facility] RH INTERPRETATION Positive Normal The [facility] Comment on above: Order Comment: 2 uni ts 2 units 2 units 2 units 2 units Performed By: #### 6 2586 #### [facility] [address] [place] [address], [facility] URINALYSIS REFLEXon 08-02-20 18 Appearance (U) CLEAR Normal CLEAR The [facility] Comment on above: Performed By: #### 3 0965 #### [facility] [address] [facility] [address], [facility] Bilirubin [Mass/Vol] Negative Normal NEGATIVE The [facility] Comment on above: Performed By: #### 3 0965 #### [facility] [address] [facility] [address], [facility] BLOOD Negative Normal NEGATIVE The [facility] Comment on above: Performed By: #### 3 0965 #### [facility] [address] [facility] [address], [facility] Color (U) YELLOW Normal YELLOW The [facility] Comment on above: Performed By: #### 3 0965 #### [facility] [address] [place] [address], [facility] Glucose [Mass/Vol] 150 mg/dL Abnormal NEGATIVE The [facility] Comment on above: Performed By: #### 3 0965 #### [facility] [address] [place] [address], [facility] KETONE Negative Normal NEGATIVE The [facility] Comment on above: Performed By: #### 3 0965 #### [facility] [address] [place] [address], [facility] [place] Negative Normal NEGATIVE [facility] Comment on above: Performed By: #### 3 0965 #### [facility] [address] [place] [address], [facility] MICRO NOT DONE negative chemical reactions unless requested in original order Normal The [facility] Comment on above: Performed By: #### 3 0965 #### [facility] [address] [place] [address], [facility] Nitrite Ql (U) Negative Normal NEGATIVE [facility] Comment on above: Performed By: #### 3 0965 #### [facility] [address] [place] [address], [facility] pH (Bld) 5.0 Normal 5.0-8.0 [facility] Comment on above: Performed By: #### 3 0965 #### [facility] [address] [place] [address], [facility] Protein (U) [Mass/Vol] Negative Normal NEGATIVE [facility] Comment on above: Performed By: #### 3 0965 #### [facility] [address] [place] [address], [facility] SPEC GRAV 1.024 High 1.015-1.020 [facility] Comment on above: Performed By: #### 3 0965 #### [facility] [address] [place] [address], [facility] Vital Signs Date Time Vital Sign Value Performing Clinician Bijali litlamont 06-15-2022 10:30-0400 Blood Pressure Location [facility]ola Lue [facility] 02-25-2022 10:30-0400 Diastolic blood pressure 107 mm[Hg] Viola Lue [facility] 02-25-2022 10:30-0400 Heart rate 74 /min Viola Lue [facility] 02-25-2022 10:30-0400 Respiratory rate 16 /min Viola Lue [facility] 02-25-2022 10:30-0400 Systolic blood pressure 157 mm[Hg] Viola Lue [facility] Encounters Encounter Date Encounter Type Care Provider Facility Start: 01-10-2024 End: 01-11-2024 ambulatory VALENCIA DE LEÓN Not Available Start: 01-03-2024 End: 01-03-2024 ambulatory Trey Vallejo Facility:[facility] Start: 01-03-2024 End: 01-03-2024 ambulatory DPM Trey Vallejo Work Phone: [facility] Work Phone: Start: 01-03-2024 End: 01-03-2024 Departed [facility] Phone: [facility] Start: 12-29-2023 End: 12-29-2023 ambulatory RUBÉN GEIGER Not Available Start: 11-29-2023 End: 11-30-2023 ambulatory Diallo Beauchamp MD Facility:[facility] Start: 10-18-2023 End: 10-19-2023 ambulatory Diallo Beauchamp MD Facility:[facility] Start: 09-27-2023 End: 09-27-2023 ambulatory RUBÉN GEIGER Not Available Start: 08-30-2023 End: 08-31-2023 ambulatory Diallo Beauchamp MD Facility:[facility] Start: 07-12-2023 End: 07-13-2023 ambulatory Diallo Beauchamp MD Facility:[facility] Start: 06-14-2023 End: 06-15-2023 ambulatory Kirkus Woo Beauchamp MD Facility:[facility] Start: 03-11-2023 End: 03-11-2023 ambulatory Rubén Geiger Facility:[facility] Start: 12-06-2022 End: 12-06-[address] VENUS MENDEZ . Facility:[facility] Start: 12-05-2022 Encounter for genera l adult medical examination without abnormal findings DR VENUS MENDEZ . [facility] Start: 12-01-2022 End: 12-02-[address] [...] encounter procedure Viola Grullon [facility] Start: 01-04-2022 End: 01-05-[address] VENUS MENDEZ . Facility: Start: 01-30-2019 End: 02-01-2019 Evaluation and management of inpatient PROVIDER UNKNOWN Facility:[facility] Start: 08-17-2018 End: 08-18-2018 Patient encounter procedure PROVIDER UNKNOWN Facility:[facility] Procedures Date Procedure Procedure Detail Performing Clinician Start: 12-01-[address] FRANKLIN MENDEZ . Comment on above: Performed By: #### P [facility] #### [facility] [address] [place] [address] Dr. Shabnam Rae Start: 01-30-2019 FUSION CERV JT W INT BD FUS DEV, ANT APPR A COL, OPEN [facility] Start: 01-30-2019 REMOVAL OF INT FIX F ROM CERVCAL VERTEBRA, OPEN APPROACH [facility] Start: 01-23-2019 Antibody screen PROVIDE R UNKNOWN Comment on above: Performed By: #### 5 7307, 05234 #### [facility] [address] Start: 08-17-2018 ANESTH SPINE CORD SURGERY [...] units Performed By: #### 6 2586 #### [facility] [address] Colonoscopy Viola Grullon Hemorrhoids (disorder) Viola Lue Hernia of abdominal cavity (disorder) Viola Anna Mariee Tonsillectomy Viola Mitchel Payers Date Payer Category Payer Self-pay [id number] 2022 Medicaid [id number] 2022 Unknown 1970 Unknown [id number] 2.16.8 [id number] 1970 Unknown [id number] 2.16.8 40.1.515363.3.579.2.647 1970 Unknown [id number] 2.16.84 0.1.776907.3.579.2.593 1970 Unknown [id number] 2.16.84 0.1.530577.3.579.2.593 1970 Unknown [id number] 2.16.84 0.1.896727.3.579.2.593 1970 Unknown [id number] 2.16.84 0.1.539524.3.579.2.593 1970 Unknown [id number] 2.16.84 0.1.944476.3.579.2.593 1970 Unknown [id number] 2.16.84 0.1.601176.3.579.2.593 1970 Unknown [id number] 2.16. 840.1.644362.3.579.2.196 1970 Unknown [id number] 2.16. 840.1.345438.3.579.2.196 1970 Unknown [id number] 2.16. 840.1.724737.3.579.2.196 1970 Unknown [id number] 2.16. 840.1.193245.3.579.2.196 1970 Unknown [id number] 2.16. 840.1.481020.3.579.2.196 1970 Unknown [id number] 2.16.84 0.1.637869.3.579.2.1259 1970 Unknown [id number] 2.16.84 0.1.939348.3.579.2.1259 1970 Unknown [id number] 2.16.84 0.1.485557.3.579.2.1259 1970 Unknown [id number] 2.16.84 0.1.074070.3.579.2.1259 1959 Unknown [id number] Unknown [id number] Unknown [id number] 2.16.8 40.1.969438.3.579.2.531 Unknown [id number] 2.16.8 40.1.617163.3.579.2.531 Social History Date Type Detail Facility Tobacco smoking status No Smokin g Status Entered [facility] Sex Assigned At Male [facility] Start: 05-15-2018 Tobacco smoking stat us NHIS Ex-smoker (finding) [facility] Start: 1970 Sex Assigned At Male [facility] Functional Status Date Assessment Result Facility 02-25-2022 Functional Status N/A [facility] Progress note 06-09-2023 Note Date & Type Note Facility 06-09-2023 Note [facility] Continue GDMT- Diuretic therapy Monitor daily weights, I&O, fluid restriction 1.5-2L/day, renal function and electrolytes- [facility] Clinical Note 03-26-2022 Note Date [...] ALVINA CAICEDO Date: 2022-03-26 10:47 [facility] Discharge instructions 02-25-2022 Note Date & Type [...] Watch the hydrocele for any changes. Take ndnm-oyp-nopeiay and prescription medicines only as told by [...] 02/17/2011 Document Revised: 09/10/2018 Document Reviewed: 09/10/2018 [employer] Patient Education 2020 Global [employer] of [employer]. Follow Up Care 01/28/2022 10:36:35 With:Mitchel DELGADO, Viola Cohn URL, URO Address: When: Unknown [facility] Evaluation + Plan note Note Date & Type Note Facility Evaluation + Plan note No data available for this section [facility] Evaluation note Note Date & Type Note Facility Evaluation note No assessment information availa [facility] Work Phone: Progress note Note Date & Type Note Facility Progress note No data available for this section [facility] Summary Purpose Family History No Family History Records FoundNo Family History Records FoundNo Family History Records FoundNo Family History Records FoundNo Family History Records FoundNo Family History Records FoundNo Family History Records Found Advance Directives No Advanced Directives Records Found Advance Directive Response Recorded Date/ Time Advance Directives No May 12:42pm Hospital Course Note MR#: [id number] I [facility] Pt. Name: Matty Garces Admitted: 01/30/2019 Discharged: [...] and content) DATE CREATED AUTHOR 07/19/2019 [facility] DATE CREATED AUTHOR AUTHOR'S ORGANIZ ATION 02/27/2022 [facility] DATE CREATED AUTHOR AUTHOR'S ORGANIZ ATION 12/08/2022 [facility] DATE CREATED AUTHOR AUTHOR'S ORGANIZ ATION 06/17/2023 [facility] DATE CREATED AUTHOR AUTHOR'S ORGANIZ ATION 12/03/2023 [facility] DATE CREATED AUTHOR AUTHOR'S ORGANIZ ATION 01/08/2024 [facility] DATE CREATED AUTHOR AUTHOR'S ORGANIZ ATION 01/15/2024 [facility] Care Team (unrecognized sect ion and content) [...] BE BASED ON THE PRIMARY CLINICAL RECORDS. [facility] [employer] provides no warranty or guarantee of the accuracy or completeness of information in this document.
== END 2024-01-21 11:22 | disposition home or self-care (01) ==
LOC: WC 11:21
PROVIDERS: PCP Family Medicine; Visit Provider Podiatrist Foot & Ankle Surgery
DX: L97.512 Non-pressure chronic ulcer of other part of right foot with fat layer exposed (principal)
CPT/HCPCS: 11042; A6213

== ENCOUNTER 2024-01-26 11:58 | Outpatient (OUT) | payer MEDICAID, SELFPAY ==
--- NOTE | 2024-01-26 12:05 | XR_ITS ---
[address] [address] Patient Name: MATTY WADE MRN: [id number] date: 1970 Sex: M Assigned Patient Location: RAD Current Patient Location: [facility] Accession/Order Number: [id number] Exam Date: 01/26/2024 12:12 Report Date: 01/26/2024 12:38 At the request of: VALENCIA DE LEÓN Procedure: XR foreign body eye EXAMINATION: XR foreign body eye HISTORY: Foreign Body Eye Screen COMPARISON: No relevant comparison available. FINDINGS: ORBITS: Negative for a metallic foreign body. OTHER: Negative. XR/XR foreign body eye IMPRESSION: No metallic foreign body in the orbits Electronically authenticated by: ALVINA CAICEDO Date: 01/26/2024 12:38
--- NOTE | 2024-01-26 12:06 | MR_ITS ---
[place] [id number] Patient Name: MATTY WADE MRN: [id number] date: 1970 Sex: M Assigned Patient Location: [facility] Current Patient Location: [facility] Accession/Order Number: [id number] Exam Date: 01/26/2024 12:50 Report Date: 01/26/2024 13:47 At the request of: VALENCIA Pate APLING Procedure: MR knee RT wo con EXAMINATION: MR knee RT wo con HISTORY: Internal Derangement Of Right Knee M23.91 COMPARISON: No relevant comparison available. TECHNIQUE: A complete multi-planar MRI was performed. FINDINGS: MEDIAL COMPARTMENT MEDIAL MENISCUS: Oblique tear extending into the superior surface of the posterior horn. CARTILAGE: No visible defect. BONES: No marrow pathology, fracture, or significant arthropathy. MCL AND MEDIAL CAPSULE: Normal medial collateral ligament and medial capsule. LATERAL COMPARTMENT LATERAL MENISCUS: No visible tear or significant degeneration. CARTILAGE: No visible defect. BONES: No marrow pathology, fracture, or significant arthropathy. LCL/POSTEROLAT COMPLEX: Normal lateral collateral ligament, fascicles, lateral capsule and ligaments. ANTERIOR COMPARTMENT PATELLA: Small amount of edema signal in the lower pole of the patella CARTILAGE: No visible defect. TENDONS: Thickening and minimally increased signal of the distal quadriceps tendon EFFUSION: None. No synovitis or loose bodies. ACL: Normal appearing ligament. PCL: Normal appearing ligament. MENISCOFEMORAL: Normal meniscofemoral ligaments. OTHER: Increased heterogeneous soft tissue and fluid anterior to the patella MR/MR knee RT wo con IMPRESSION: Oblique tear posterior horn medial meniscus extending to the superior articular surface Mild tendinitis of the distal quadriceps tendon Prepatellar soft tissue swelling and suspected hematoma Mild bone edema lower pole of the patella Electronically authenticated by: ALVINA CAICEDO Date: 01/26/2024 13:47
--- OUTSIDE RECORDS SUMMARY | 2024-01-26 12:09 | XMS_ITS | CCD ---
Author Organization [facility] Care Team Providers Care Sample Maker Name Role Phone UNKNOWN, PROVIDER Admitting Unavailable [...] Surgeon Unavailable Venus Mendez Primary Care Physician [phone] DONOVAN Admitting Unavailable HOY [...] source) Aspartame Drug Allergy 08-17-20 18 The [facility] (1 source) avoid; Translations: [Unknown] Propensity to adverse reactions (disorder) 08-17-20 18 The [facility] (1 source) vitamin B12; Translations: [cyanocobalamin] Drug Allergy Unknown (qualifier value) [facility] (1 source) Acetaminophen / HYDROcodone Drug Allergy [facility] (1 source) Corticosteroids Drug allergy (disorder) [facility] (1 source) fentaNYL Drug Allergy [facility] (1 source) Misc-Food; Translations: [Misc-Food] Food allergy (disorder) [facility] (1 source) Corticosteroids Drug allergy (disorder) 05-14-20 18 [facility] Medications Current Medications Medication Drug [...] Bedtime May 14, 2018 12:00am Vit D3-Folic Eljg-G6-F8-B12 (1 source) Start: 05-14-2018 take 1 tablet by mouth once daily Vit D3-Folic Iwvt-Z8-L0-B12 Active 1 TAB PO Daily May 14, [...] Onset: 3 Chronic Other aftercare (1 source) 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; 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] Onset: 3 Episodic Other aftercare (1 source) 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; Translations: [OTH USP CURRENT DRUG THERAPY] Onset: 3 Episodic Other [...] Test Name Value Interpretation Reference Range Facility [facility] 01-03-2024 L Specimen: [id number] Received: 01/03/24 Status: GIOVANNI Jacinto Num: [id number] Spec Type: Surgical Subm Dr: Trey Vallejo DPM, MS Tissues: A Bone Fragments - Pathologic Fracture (PROXIMAL PHALANX RIGHT HALLU) Procedures: HE/2, Gross/Micro L5, Decalcification Age/ Patient Sex Location Account Attending Physician Matty Garces 53/M LABELL [id number] Trey Vallejo DPM, MS SPEC NUM: [id number] RECD: 01/03/24 STATUS: GIOVANNI JACINTO NUM: [id number] SOFY: 01/03/[address]: Trey Vallejo DPM, MS ENTERED: 01/03/24 [facility] DR: Toño,Ayesha SPEC TYPE: Surgical DEPT: SEEMA [...] Sectioning reveals unremarkable yellow, spongy bone matrix. Reinsurance Claim Analyst sections are submitted in A1 following decal. Clinical history: Non-pressure chronic ulcer . Right hallux IPJ arthroplasty with wound debridement and graft application TW Specimen: [id number] Received: 01/03/24 Status: GIOVANNI Jacinto Num: [id number] Spec Type: Surgical Subm Dr: Trey Vallejo,DPM, MS Tissues: A Bone Fragments - Pathologic Fracture (PROXIMAL PHALANX RIGHT HALLU) Procedures: HE/2, Gross/Micro L5, Decalcification Patient: Matty Garces [id number] (Continued) Specimen: [id number] Received: 01/03/24 (Continued) Signed (signature on file) Viral Rae MD 01/06/24 1838 Specimen: [id number] Received: 01/03/24 Status: GIOVANNI Jacinto Num: [id number] Spec Type: Surgical Subm Dr: Trey Vallejo,[place], [place] Tissues: A Bone Fragments - Pathologic Fracture (PROXIMAL PHALANX RIGHT HALLU) Procedures: HE/2, Gross/Micro L5, Decalcification Patient: Matty Garces [id number] (Continued) Specimen: [id number] Received: 01/03/24 (Continued) CPT Codes 10993 Specimen: [id number] Received: 01/03/24 Status: GIOVANNI Jacinto Num: [id number] Spec Type: Surgical Subm Dr: Trey Vallejo,[place], [place] Tissues: A Bone Fragments - Pathologic Fracture (PROXIMAL PHALANX RIGHT HALLU) Procedures: HE/2, Gross/Micro L5, Decalcification Patient: Matty Garces [id number] (Continued) Signed (signature on file) Viral Rae MD 01/06/241837 Normal [facility] XR cervical spine 5V*on 02-12 XR cervical spine 5V* [place] [address] XRay Report Signed Patient: Matty Garces MR#: [id number] 97 : 1970 Acct:[id number] Age/Sex: 52 / M ADM Date: 03/11/23 Loc: ICXD Room: Type: [facility] Attending Dr: Rubén Geiger MD Copies [...] Crow Contreras M.D.03/11/2023 3:48 PM Dictation Location: [place] [address] Transcribed By: [facility] 03/11/23 1548 Dictated By: Crow Contreras DO 03/11/23 1544 Signed By: 03/11/23 1548 Normal [facility] Physician [facility] CT CSPINE WO CONon CT [...] by: ANGEL JORDAN Date: 2022-12-06 06:37 Normal [facility] CT FACIAL BONES WO CONon [...] ANGEL JORDAN Date: 2022-12-06 06:41 Normal [facility] CT HEAD WO CONon 12-06-2022 CT [...] ANGEL JORDAN Date: 2022-12-06 06:39 Normal [facility] XR ELBOW RT MIN 3 VIEWSon XR ELBOW RT MIN 3 VIEWS Exam: Radiographs: XR ELBOW RT MIN 3 VIEWS Reason for exam: Elbow pain Comparison: None IMPRESSION: Right elbow degenerative changes. Olecranon spur. Remainder of the right elbow is unremarkable. Electronically authenticated by: MICHAEL CASANOVA Date: 2022-12-06 07:22 Normal [facility] XR FOREARM RT 2Von 3 XR FOREARM RT 2V Exam: Radiographs: XR FOREARM RT 2V Reason for exam: Forearm pain Comparison: None IMPRESSION: Mild degenerative changes in the right elbow and wrist. Right forearm is otherwise unremarkable. Electronically authenticated by: MICHAEL CASANOVA Date: 2022-12-06 08:07 Normal [facility] PSA, FREE AND TOTAL RATIOon 12-03-2022 % Free PSA 9.0 % Normal [facility] Comment on above: Result Comment: The [...] Performed By: #### P SAFREE #### [facility] [address] [place] [address] Dr. Shabnam Rae Prostate specific Ag [Mass/Vol] 5.9 ng/mL Critically high 0.0-4.0 [facility] Comment on above: Result Comment: Tanja ayala ECLIA methodology. . According to the [place] [employer], Serum PSA should decrease and [...] Performed By: #### P SAFREE #### [facility] [address] [place] [address] Dr. Shabnam Rae PSA, Free 0.53 ng/mL Normal N/A [facility] Comment on above: Result Comment: Tanja ayala ECLIA methodology. Performed By: #### P SAFREE #### [facility] [address] [place] [address] Dr. Shabnam Rae INSULINon 12-02-2022 Insulin 20.2 uIU/mL Normal 2.6-24.9 [facility] Comment on above: Performed By: #### P SASC #### [facility] [address] [place] [address] Dr. Shabnam Rae TESTOSTERONE, TOTALon 2022 Testosterone [Mass/Vol] 256 ng/dL Critically low 264-916 [facility] Comment on above: Result Comment: Adul t male reference interval is based on a population of healthy nonobese males (BMI <30) between 19 and 39 years old. adia Ch.al. JCEM 2017,102;4400-5962. PMID: [id number]. Performed By: #### P SASC #### [facility] [address] [place] [address] Dr. Shabnam Rae CBC AUTO DIFFon 12-01-2022 BASO # 0.1 103/ul Normal 0.0-0.1 [facility] Comment on above: Performed By: #### P SASC #### [facility] [address] [place] [address] Dr. Shabnam Rae Basophils/100 WBC (Bld) 1.0 % Normal 0.2-2.0 [facility] Comment on above: Performed By: #### P SASC #### [facility] [address] [place] [address] Dr. Shabnam Rae EO # 0.1 103/ul Normal 0.0-0.7 [facility] Comment on above: Performed By: #### P SASC #### [facility] [address] [place] [address] Dr. Shabnam Rae Eosinophils/100 WBC (Bld) 1.8 % Normal 0.9-7.0 [facility] Comment on above: Performed By: #### P SASC #### [facility] [address] [place] [address] Dr. Shabnam Rae Erythrocyte distribution width (RBC) [Ratio] 14.8 % Normal 11.0-15.0 [facility] Comment on above: Performed By: #### P SASC #### [facility] [address] [place] [address] Dr. Shabnam Rae Hematocrit (Bld) [Volume fraction] 49.9 % Normal 42.0-54.0 [facility] Comment on above: Performed By: #### P SASC #### [facility] [address] [place] [address] Dr. Shabnam Rae Hemoglobin (Bld) [Mass/Vol] 16.0 g/dL Normal 14.0-18.0 [facility] Comment on above: Performed By: #### P SASC #### [facility] [address] [place] [address] [address] Shabnam Rae IG # 0.04 10e3/ul Critically high 0.00-0.03 [facility] Comment on above: Performed By: #### P SASC #### [facility] [address] [place] [address] [address] Shabnam Rae IG % 0.6 % Critically high 0.0-0.5 [facility] Comment on above: Performed By: #### P SASC #### [facility] [address] [place] [address] Dr. Shabnam Rae LYMPH # 1.0 103/ul Critically low 1.2-3.8 [facility] Comment on above: Performed By: #### P SASC #### [facility] [address] [place] [address] Dr. Shabnam Rae Lymphocytes/100 WBC (Bld) 16.2 % Critically low 20.5-60.0 [facility] Comment on above: Performed By: #### P SASC #### [facility] [address] [place] [address] Dr. Shabnam Rae MANUAL DIFF REQ NO Normal [facility] Comment on above: Performed By: #### P SASC #### [facility] [address] [place] [address] [address] Shabnam Rae MCH (RBC) [Entitic mass] 27.7 pg Normal 25.9-34.0 [facility] Comment on above: Performed By: #### P SASC #### [facility] [address] [place] [address] [address] Shabnam Rae MCHC (RBC) [Mass/Vol] 32.1 g/dL Normal 29.9-35.2 [facility] Comment on above: Performed By: #### P SASC #### [facility] [address] [place] [address] [address] Shabnam Rae MCV (RBC) [Entitic vol] 86.3 fL Normal 80.0-94.0 [facility] Comment on above: Performed By: #### P SASC #### [facility] [address] [place] [address] Dr. Shabnam Rae MONO # 0.5 103/ul Normal 0.3-0.8 [facility] Comment on above: Performed By: #### P SASC #### [facility] [address] [place] [address] Dr. Shabnam Rae Monocytes/100 WBC (Bld) 7.6 % Normal 1.7-12.0 [facility] Comment on above: Performed By: #### P SASC #### [facility] [address] [place] [address] Dr. Shabnam Rae NEUT # 4.6 103/ul Normal 1.4-6.5 [facility] Comment on above: Performed By: #### P SASC #### [facility] [address] [place] [address] Dr. Shabnam Rae Neutrophils/100 WBC (Bld) 72.8 % Normal 43.0-75.0 [facility] Comment on above: Performed By: #### P SASC #### [facility] [address] [place] [address] Dr. Shabnam Rae Platelet mean volume (Bld) [Entitic vol] 9.8 fL Normal 9.5-13.5 [facility] Comment on above: Performed By: #### P SASC #### [facility] [address] [place] [address] Dr. Shabnam Rae PLT 203 103/ul Normal 150-450 [facility] Comment on above: Performed By: #### P SASC #### [facility] [address] [place] [address] Dr. Shabnam Rae RBC 5.78 106/ul Normal 4.70-6.10 [facility] Comment on above: Performed By: #### P SASC #### [facility] [address] [place] [address] Dr. Shabnam Rae WBC 6.3 103/ul Normal 4.0-11.0 [facility] Comment on above: Performed By: #### P SASC #### [facility] [address] [place] [address] [address] Shabnam Rae FREE THYROXINE INDEX T7on FTI 2.05 Normal 1.30-4.50 [facility] Comment on above: Performed By: #### T SH, CMP, LIPID, T7, URIC #### [facility] [address] [place] [address] [address] Shabnam Rae T3U 33.0 % Normal 33.0-40.0 [facility] Comment on above: Performed By: #### T SH, CMP, LIPID, T7, URIC #### [facility] [address] [place] [address] Dr. Shabnam Rae T4 [Mass/Vol] 6.20 ug/dL Normal 4.50-12.[address] [facility] Comment on above: Performed By: #### T SH, CMP, LIPID, T7, URIC #### [facility] [address] [place] [address] [address] Shabnam Rae GLYCOHEMOGLOBIN A1Con 2022 ADA RECOMMENDATION SEE BELOW Normal [facility] Comment on above: Result Comment: ADA RECOMMENDED LIMIT 4.0 - 6.0 ADA THERAPEUTIC TARGET < 7.0 ACTION SUGGESTED > 7.0 Performed By: #### P SASC #### [facility] [address] [place] [address] [address] Shabnam Rae Glucose [Mass/Vol] 114 mg/dL Normal [facility] Comment on above: Performed By: #### P SASC #### [facility] [address] [place] [address] [address] Shabnam Rae HbA1c (Bld) [Mass fraction] 5.6 % Normal 4.5-6.2 [facility] Comment on above: Performed By: #### P SASC #### [facility] [address] [place] [address] Dr. Shabnam Rae LIPID PROFILEon 12-01-2022 CHOL-HDL RATIO NORM SEE BELOW Normal [facility] Comment on above: Result Comment: 3.3 - 4.4 LOW RISK 4.4 - 7.1 AVERAGE RISK 7.1 - 11.0 MODERATE RISK >11.0 HIGH RISK Performed By: #### T SH, CMP, LIPID, T7, URIC #### [facility] [address] [place] [address] [address] Shabnam Rae Cholesterol [Mass/Vol] 176 mg/dL Normal <=200 [facility] Comment on above: Performed By: #### T SH, CMP, LIPID, T7, URIC #### [facility] [address] [place] [address] [address] Shabnam Rae Cholesterol in HDL [Mass/Vol] 48 mg/dL Normal 40-60 [facility] Comment on above: Performed By: #### T SH, CMP, LIPID, T7, URIC #### [facility] [address] [place] [address] Dr. Shabnam Rae Cholesterol in LDL [Mass/Vol] 108.2 mg/dL Normal [facility] Comment on above: Performed By: #### T SH, CMP, LIPID, T7, URIC #### [facility] [address] [place] [address] [address] Shabnam Rae Cholesterol.total/Ch olesterol in HDL [Mass ratio] 3.7 {ratio} Normal [facility] Comment on above: Performed By: #### T SH, CMP, LIPID, T7, URIC #### [facility] [address] [place] [address] Dr. Shabnam Rae HDL NORMAL > or = 60 mg/dl - LOW CARDIOVASCULAR RISK <40 mg/dl - HIGH CARDIOVASCULAR RISK Normal [facility] Comment on above: Performed By: #### T SH, CMP, LIPID, T7, URIC #### [facility] [address] [place] [address] Dr. Shabnam Rae LDL CALC NORMAL SEE BELOW Normal [facility] Comment on above: Result Comment: <100 mg/dl OPTIMAL 100 - 129 mg/dl NEAR OR ABOVE OPTIMAL 130 - 159 mg/dl BORDERLINE HIGH 160 - 189 mg/dl HIGH >190 mg/dl VERY HIGH Performed By: #### T SH, CMP, LIPID, T7, URIC #### [facility] [address] [place] [address] [address] Shabnam Rae Triglyceride [Mass/Vol] 99 mg/dL Normal <=150 [facility] Comment on above: Performed By: #### T SH, CMP, LIPID, T7, URIC #### [facility] [address] [place] [address] [address] Shabnam Rae VLDL CALC 19.8 mg/dL Normal [facility] Comment on above: Performed By: #### T SH, CMP, LIPID, T7, URIC #### [facility] [address] [place] [address] [address] Shabnam Rae PROF 14(COMP METB)on 023 Albumin [Mass/Vol] 4.1 g/dL Normal 3.4-5.0 [facility] Comment on above: Performed By: #### T SH, CMP, LIPID, T7, URIC #### [facility] [address] [place] [address] [address] Shabnam Rae Albumin/Globulin [Mass ratio] 1.1 {ratio} Normal [facility] Comment on above: Performed By: #### T SH, CMP, LIPID, T7, URIC #### [facility] [address] [place] [address] [address] Shabnam Rae ALP [Catalytic activity/Vol] 101 U/L Normal 46-116 [facility] Comment on above: Performed By: #### T SH, CMP, LIPID, T7, URIC #### [facility] [address] [place] [address] [address] Shabnam Rae ALT [Catalytic activity/Vol] 26 U/L Normal 16-63 [facility] Comment on above: Performed By: #### T SH, CMP, LIPID, T7, URIC #### [facility] [address] [place] [address] [address] Shabnam Rae Anion gap [Moles/Vol] 10.1 mmol/L Normal [facility] Comment on above: Performed By: #### T SH, CMP, LIPID, T7, URIC #### [facility] [address] [place] [address] [address] Shabnam Rae AST [Catalytic activity/Vol] 19 U/L Normal 15-37 [facility] Comment on above: Performed By: #### T SH, CMP, LIPID, T7, URIC #### [facility] [address] [place] [address] Dr. Shabnam Rae Bilirubin [Mass/Vol] 0.8 mg/dL Normal 0.2-1.0 [facility] Comment on above: Performed By: #### T SH, CMP, LIPID, T7, URIC #### [facility] [address] [place] [address] Dr. Shabnam Rae Calcium [Mass/Vol] 9.5 mg/dL Normal 8.5-10.1 [facility] Comment on above: Performed By: #### T SH, CMP, LIPID, T7, URIC #### [facility] [address] [place] [address] Dr. Shabnam Rae Chloride [Moles/Vol] 102 mmol/L Normal 98-107 [facility] Comment on above: Performed By: #### T SH, CMP, LIPID, T7, URIC #### [facility] [address] [place] [address] Dr. Shabnam Rae CO2 [Moles/Vol] 32.4 mmol/L Critically high 21.0-32.0 [facility] Comment on above: Performed By: #### T SH, CMP, LIPID, T7, URIC #### [facility] [address] [place] [address] Dr. Shabnam Rae Creatinine [Mass/Vol] 1.00 mg/dL Normal 0.70-1.30 [facility] Comment on above: Performed By: #### T SH, CMP, LIPID, T7, URIC #### [facility] [address] [place] [address] Dr. Shabnam Rae EGFR-AF CHINESE >60 Normal >=60 [facility] Comment on above: Performed By: #### T SH, CMP, LIPID, T7, URIC #### [facility] [address] [place] [address] Dr. Shabnam Rae EGFR-NON AF CHINESE >60 Normal >=60 [facility] Comment on above: Performed By: #### T SH, CMP, LIPID, T7, URIC #### [facility] [address] [place] [address] Dr. Shabnam Rae Globulin (S) [Mass/Vol] 3.8 g/dL Normal [facility] Comment on above: Performed By: #### T SH, CMP, LIPID, T7, URIC #### [facility] [address] [place] [address] Dr. Shabnam Rae Glucose [Mass/Vol] 94 mg/dL Normal 74-106 [facility] Comment on above: Performed By: #### T SH, CMP, LIPID, T7, URIC #### [facility] [address] [place] [address] Dr. Shabnam Rae Potassium [Moles/Vol] 3.5 mmol/L Normal 3.5-5.1 [facility] Comment on above: Performed By: #### T SH, CMP, LIPID, T7, URIC #### [facility] [address] [place] [address] Dr. Shabnam Rae Protein [Mass/Vol] 7.9 g/dL Normal 6.4-8.2 [facility] Comment on above: Performed By: #### T SH, CMP, LIPID, T7, URIC #### [facility] [address] [place] [address] Dr. Shabnam Rae Sodium [Moles/Vol] 141 mmol/L Normal 136-145 [facility] Comment on above: Performed By: #### T SH, CMP, LIPID, T7, URIC #### [facility] [address] [place] [address] Dr. Shabnam Rae Urea nitrogen [Mass/Vol] 15.0 mg/dL Normal 7.0-18.0 [facility] Comment on above: Performed By: #### T SH, CMP, LIPID, T7, URIC #### [facility] [address] [place] [address] Dr. Shabnam Rae Urea nitrogen/Creatinine [Mass ratio] 15.0 mg/mg Normal [facility] Comment on above: Performed By: #### T SH, CMP, LIPID, T7, URIC #### [facility] [address] [place] [address] Dr. Shabnam Rae TSHon 12-01-2022 TSH 1.504 uIU/mL Normal 0.358-3.740 [facility] Comment on above: Performed By: #### T SH, CMP, LIPID, T7, URIC #### [facility] [address] [place] [address] Dr. Shabnam Rae URIC ACID SERUMon 12-01-2022 Urate [Mass/Vol] 6.9 mg/dL Normal 3.5-7.2 [facility] Comment on above: Performed By: #### T SH, CMP, LIPID, T7, URIC #### [facility] [address] [place] [address] Dr. Shabnam Rae TESTOSTERONE, TOTALon 2021 Testosterone [Mass/Vol] 244 ng/dL Critically low 264-916 [facility] Comment on above: Result Comment: Adul t male reference interval is based on a population of healthy nonobese males (BMI <30) between 19 and 39 years old. Dima, et.al. JCEM 2017,102;5458-6827. PMID: [id number]. Performed By: #### P SAFREE #### [facility] [address] [place] [address] Dr. Shabnam Rae TESTOSTERONE, FREE,DIRECT, T OTALon 03-16-2022 Free Testosterone(Direct) 2.1 pg/mL Critically low 7.2-24.[address] [facility] Comment on above: Result Comment: Perf ormed at: BN Performed By: #### C VDTBH #### [facility] [address] [place] [address] Dr. Shabnam Rae Testosterone [Mass/Vol] 252 ng/dL Critically low 264-916 [facility] Comment on above: Result Comment: Adul t male reference interval is based on a population of healthy nonobese males (BMI <30) between 19 and 39 years old. Travison, et.al. JCEM 2017,102;4737-9329. PMID: [id number]. Performed at: CB Performed By: #### C VDTBH #### [facility] [address] [address] [address] Shabnam Rae Formson 02-26-2022 Forms [id number] 7#1.00CD:127 Normal [facility] Screenson 02-26-2022 Screens [id number] 7#1.00CD:127 Normal [facility] Screens [id number] #1.00CD:127 Normal [facility] Urology Office/Clinic Noteon 02-26-2022 Urology [...] qualifying data (more content not included)... Normal [facility] Comment on above: Result Comment: Elec tronically Signed By: Viola Grullon MD\.br\Date and Time Signed: 02/26/22 00:20 EDT\.br\Electronically Co-Signed By: Helen Leung\.br\Date and Time Co-Signed: 02/25/22 11:16 EDT Ambulatory Visit Summaryon 0 02-25-2022 Ambulatory Visit Summary MATTY GARCES :1970 Visit Date:02/25/2022 Ambulatory Visit Instructions Your Diagnosis Hydrocele Varicocele BPH without urinary obstruction Tests Performed Urnls Dip Stick Auto w/o Microscopy POC 81586 Your Care Team Attending Physician - Viola [...] Urnls Dip Stick Auto w/o Microscopy POC 36184 (02/25/2022) Bilirubin Urine Dipstick - Negative Blood Urine Dipstick - Negative Glucose Urine Dipstick - Negative Ketones Urine Dipstick - Negative Leukocytes Urine Dipstick - Negative Nitrite Urine Dipstick - Negative Protein Urine Dipstick - Negative Specific [place] Urine Dipstick - >=1.030 Urine Appearance Urine [...] the hydrocele for any changes. ? Take nuac-ugi-imnzflz and prescription medicines only as told by [...] the hydrocele for any changes. ? Take yeec-xqz-ubogvuk and prescription medicines only as told by [...] 02/17/2011 Document Revised: 09/10/2018 Document Reviewed: 09/10/2018 [employer] Patient Education ? 2019 [employer] Normal [facility] ED Note-Physicianon 02-04-20 22 ED Note-Physician [id number] 62#[id number]:127 Normal [facility] RAD - Ultrasound Reporton RAD - Ultrasound Report [id number] #1.00CD:127 Normal [facility] RAD - CT Reporton 02-02-2022 RAD - CT Report [id number]#1.00CD:127 Normal [facility] RAD - CT Report [id number]#1.00CD:127 Normal [facility] CBC AUTO DIFFon 01-05-2022 BASO # 0.0 103/ul Normal 0.0-0.1 [facility] Comment on above: Performed By: #### P SAFREE #### [facility] [address] [place] [address] Dr. Shabnam Rae Basophils/100 WBC (Bld) 0.6 % Normal 0.2-2.0 [facility] Comment on above: Performed By: #### P SAFREE #### [facility] [address] [place] [address] Dr. Shabnam Rae EO # 0.1 103/ul Normal 0.0-0.7 [facility] Comment on above: Performed By: #### P SAFREE #### [facility] [address] [place] [address] Dr. Shabnam Rae Eosinophils/100 WBC (Bld) 2.1 % Normal 0.9-7.0 [facility] Comment on above: Performed By: #### P SAFREE #### [facility] [address] [place] [address] Dr. Shabnam Rae Erythrocyte distribution width (RBC) [Ratio] 13.1 % Normal 11.0-15.0 [facility] Comment on above: Performed By: #### P SAFREE #### [facility] [address] [place] [address] Dr. Shabnam Rae Hematocrit (Bld) [Volume fraction] 43.1 % Normal 42.0-54.0 [facility] Comment on above: Performed By: #### P SAFREE #### [facility] [address] [place] [address] Dr. Shabnam Rae Hemoglobin (Bld) [Mass/Vol] 13.7 g/dL Critically low 14.0-18.0 [facility] Comment on above: Performed By: #### P SAFREE #### [facility] [address] [address] [address] Shabnam Rae IG # 0.04 10e3/ul Critically high 0.00-0.03 [facility] Comment on above: Performed By: #### P SAFREE #### [facility] [address] [place] [address] Dr. Shabnam Rae IG % 0.6 % Critically high 0.0-0.5 [facility] Comment on above: Performed By: #### P SAFREE #### [facility] [address] [place] [address] Dr. Shabnam Rae LYMPH # 0.9 103/ul Critically low 1.2-3.8 [facility] Comment on above: Performed By: #### P SAFREE #### [facility] [address] [place] [address] Dr. Shabnam Rae Lymphocytes/100 WBC (Bld) 13.1 % Critically low 20.5-60.0 [facility] Comment on above: Performed By: #### P SAFREE #### [facility] [address] [place] [address] Dr. Shabnam Rae MANUAL DIFF REQ NO Normal [facility] Comment on above: Performed By: #### P SAFREE #### [facility] [address] [place] [address] Dr. Shabnam Rae MCH (RBC) [Entitic mass] 29.5 pg Normal 25.9-34.0 [facility] Comment on above: Performed By: #### P SAFREE #### [facility] [address] [place] [address] Dr. Shabnam Rae MCHC (RBC) [Mass/Vol] 31.8 g/dL Normal 29.9-35.2 [facility] Comment on above: Performed By: #### P SAFREE #### [facility] [address] [place] [address] Dr. Shabnam Rae MCV (RBC) [Entitic vol] 92.9 fL Normal 80.0-94.0 [facility] Comment on above: Performed By: #### P SAFREE #### [facility] [address] [address] [address] Shabnam Rae MONO # 0.4 103/ul Normal 0.3-0.8 [facility] Comment on above: Performed By: #### P SAFREE #### [facility] [address] [place] [address] Dr. Shabnam Rae Monocytes/100 WBC (Bld) 5.4 % Normal 1.7-12.0 [facility] Comment on above: Performed By: #### P SAFREE #### [facility] [address] [place] [address] Dr. Shabnam Rae NEUT # 5.2 103/ul Normal 1.4-6.5 [facility] Comment on above: Performed By: #### P SAFREE #### [facility] [address] [place] [address] Dr. Shabnam Rae Neutrophils/100 WBC (Bld) 78.2 % Critically high 43.0-75.0 [facility] Comment on above: Performed By: #### P SAFREE #### [facility] [address] [place] [address] Dr. Shabnam Rae Platelet mean volume (Bld) [Entitic vol] 10.9 fL Normal 9.5-13.5 [facility] Comment on above: Performed By: #### P SAFREE #### [facility] [address] [place] [address] Dr. Shabnam Rae PLT 153 103/ul Normal 150-450 [facility] Comment on above: Performed By: #### P SAFREE #### [facility] [address] [place] [address] Dr. Shabnam Rae RBC 4.64 106/ul Critically low 4.70-6.10 [facility] Comment on above: Performed By: #### P SAFREE #### [facility] [address] [place] [address] Dr. Shabnam Rae WBC 6.6 103/ul Normal 4.0-11.0 [facility] Comment on above: Performed By: #### P SAFREE #### [facility] [address] [place] [address] Dr. Shabnam Rae CRPon 01-05-2022 CRP 0.9 mg/dL Normal <=1.0 [facility] Comment on above: Performed By: #### P SAFREE #### [facility] [address] [place] [address] Dr. Shabnam Rae PROF 14(COMP METB)on 022 Albumin [Mass/Vol] 3.6 g/dL Normal 3.4-5.0 [facility] Comment on above: Performed By: #### P SAFREE #### [facility] [address] [place] [address] Dr. Shabnam Rae Albumin/Globulin [Mass ratio] 1.0 {ratio} Normal [facility] Comment on above: Performed By: #### P SAFREE #### [facility] [address] [place] [address] Dr. Shabnam Rae ALP [Catalytic activity/Vol] 114 U/L Normal 46-116 [facility] Comment on above: Performed By: #### P SAFREE #### [facility] [address] [place] [address] Dr. Shabnam Rae ALT [Catalytic activity/Vol] 26 U/L Normal 16-63 [facility] Comment on above: Performed By: #### P SAFREE #### [facility] [address] [place] [address] Dr. Shabnam Rae Anion gap [Moles/Vol] 9.3 mmol/L Normal [facility] Comment on above: Performed By: #### P SAFREE #### [facility] [address] [place] [address] Dr. Shabnam Rae AST [Catalytic activity/Vol] 19 U/L Normal 15-37 [facility] Comment on above: Performed By: #### P SAFREE #### [facility] [address] [place] [address] Dr. Shabnam Rae Bilirubin [Mass/Vol] 0.5 mg/dL Normal 0.2-1.0 [facility] Comment on above: Performed By: #### P SAFREE #### [facility] [address] [place] [address] Dr. Shabnam Rae Calcium [Mass/Vol] 8.9 mg/dL Normal 8.5-10.1 [facility] Comment on above: Performed By: #### P SAFREE #### [facility] [address] [place] [address] Dr. Shabnam Rae Chloride [Moles/Vol] 106 mmol/L Normal 98-107 [facility] Comment on above: Performed By: #### P SAFREE #### [facility] [address] [address] [address] Shabnam Rae CO2 [Moles/Vol] 30.7 mmol/L Normal 21.0-32.0 [facility] Comment on above: Performed By: #### P SAFREE #### [facility] [address] [place] [address] Dr. Shabnam Rae Creatinine [Mass/Vol] 1.15 mg/dL Normal 0.70-1.30 [facility] Comment on above: Performed By: #### P SAFREE #### [facility] [address] [place] [address] Dr. Shabnam Rae EGFR-AF CHINESE >60 Normal >=60 [facility] Comment on above: Performed By: #### P SAFREE #### [facility] [address] [place] [address] Dr. Shabnam Rae EGFR-NON AF CHINESE >60 Normal >=60 [facility] Comment on above: Performed By: #### P SAFREE #### [facility] [address] [place] [address] Dr. Shabnam Rae Globulin (S) [Mass/Vol] 3.6 g/dL Normal [facility] Comment on above: Performed By: #### P SAFREE #### [facility] [address] [place] [address] Dr. Shabnam Rae Glucose [Mass/Vol] 117 mg/dL Critically high 74-[address] [facility] Comment on above: Performed By: #### P SAFREE #### [facility] [address] [place] [address] Dr. Shabnam Rae Potassium [Moles/Vol] 4.0 mmol/L Normal 3.5-5.1 [facility] Comment on above: Performed By: #### P SAFREE #### [facility] [address] [address] [address] Shabnam Rae Protein [Mass/Vol] 7.2 g/dL Normal 6.1-8.2 [facility] Comment on above: Performed By: #### P SAFREE #### [facility] [address] [place] [address] Dr. Shabnam Rae Sodium [Moles/Vol] 142 mmol/L Normal 136-145 [facility] Comment on above: Performed By: #### P SAFREE #### [facility] [address] [place] [address] Dr. Shabnam Rae Urea nitrogen [Mass/Vol] 15.0 mg/dL Normal 7.0-18.0 [facility] Comment on above: Performed By: #### P SAFREE #### [facility] [address] [place] [address] Dr. Shabnam Rae Urea nitrogen/Creatinine [Mass ratio] 13.0 mg/mg Normal [facility] Comment on above: Performed By: #### P SAFREE #### [facility] [address] [place] [address] Dr. Shabnam Rae US SCROTUMon 01-05-2022 US [...] CAICEDO Date: 2022-01-05 08:48 Normal [facility] CBC AUTO DIFFon 01-04-2022 BASO # 0.1 103/ul Normal 0.0-0.1 [facility] Comment on above: Performed By: #### C BC #### [facility] [address] [place] [address] Dr. Shabnam Rae Basophils/100 WBC (Bld) 0.8 % Normal 0.2-2.0 [facility] Comment on above: Performed By: #### C BC #### [facility] [address] [place] [address] Dr. Shabnam Rae EO # 0.1 103/ul Normal 0.0-0.7 [facility] Comment on above: Performed By: #### C BC #### [facility] [address] [place] [address] Dr. Shabnam Rae Eosinophils/100 WBC (Bld) 1.5 % Normal 0.9-7.0 [facility] Comment on above: Performed By: #### C BC #### [facility] [address] [place] [address] Dr. Shabnam Rae Erythrocyte distribution width (RBC) [Ratio] 12.8 % Normal 11.0-15.0 [facility] Comment on above: Performed By: #### C BC #### [facility] [address] [place] [address] Dr. Shabnam Rae Hematocrit (Bld) [Volume fraction] 40.3 % Critically low 42.0-54.0 [facility] Comment on above: Performed By: #### C BC #### [facility] [address] [place] [address] Dr. Shabnam Rae Hemoglobin (Bld) [Mass/Vol] 13.4 g/dL Critically low 14.0-18.0 [facility] Comment on above: Performed By: #### C BC #### [facility] [address] [place] [address] Dr. Shabnam Rae IG # 0.03 10e3/ul Normal 0.00-0.03 [facility] Comment on above: Performed By: #### C BC #### [facility] [address] [place] [address] Dr. Shabnam Rae IG % 0.5 % Normal 0.0-0.5 [facility] Comment on above: Performed By: #### C BC #### [facility] [address] [place] [address] Dr. Shabnam Rae LYMPH # 1.0 103/ul Critically low 1.2-3.8 [facility] Comment on above: Performed By: #### C BC #### [facility] [address] [place] [address] Dr. Shabnam Rae Lymphocytes/100 WBC (Bld) 16.4 % Critically low 20.5-60.0 [facility] Comment on above: Performed By: #### C BC #### [facility] [address] [place] [address] Dr. Shabnam Rae MANUAL DIFF REQ NO Normal [facility] Comment on above: Performed By: #### C BC #### [facility] [address] [place] [address] Dr. Shabnam Rae MCH (RBC) [Entitic mass] 29.5 pg Normal 25.9-34.0 [facility] Comment on above: Performed By: #### C BC #### [facility] [address] [place] [address] Dr. Shabnam Rae MCHC (RBC) [Mass/Vol] 33.3 g/dL Normal 29.9-35.2 [facility] Comment on above: Performed By: #### C BC #### [facility] [address] [place] [address] Dr. Shabnam Rae MCV (RBC) [Entitic vol] 88.8 fL Normal 80.0-94.0 [facility] Comment on above: Performed By: #### C BC #### [facility] [address] [place] [address] Dr. Shabnam Rae MONO # 0.6 103/ul Normal 0.3-0.8 [facility] Comment on above: Performed By: #### C BC #### [facility] [address] [place] [address] Dr. Shabnam Rae Monocytes/100 WBC (Bld) 9.6 % Normal 1.7-12.0 [facility] Comment on above: Performed By: #### C BC #### [facility] [address] [place] [address] Dr. Shabnam Rae NEUT # 4.4 103/ul Normal 1.4-6.5 [facility] Comment on above: Performed By: #### C BC #### [facility] [address] [place] [address] Dr. Shabnam Rae Neutrophils/100 WBC (Bld) 71.2 % Normal 43.0-75.0 [facility] Comment on above: Performed By: #### C BC #### [facility] [address] [place] [address] Dr. Shabnam Rae Platelet mean volume (Bld) [Entitic vol] 10.8 fL Normal 9.5-13.5 [facility] Comment on above: Performed By: #### C BC #### [facility] [address] [place] [address] Dr. Shabnam Rae PLT 158 103/ul Normal 150-450 [facility] Comment on above: Performed By: #### C BC #### [facility] [address] [place] [address] Dr. Shabnam Rae RBC 4.54 106/ul Critically low 4.70-6.10 [facility] Comment on above: Performed By: #### C BC #### [facility] [address] [place] [address] Dr. Shabnam Rae WBC 6.2 103/ul Normal 4.0-11.0 [facility] Comment on above: Performed By: #### C #### [facility] [address] [address] [address] ABD/PELV W CONon [...] BERNAL Date: 2022-01-04 05:19 Normal [facility] CT PELVIS WO CONon 2 CT [...] MANUEL BRENNANH Date: 2022-01-04 08:54 Normal [facility] CULTURE URINEon 01-04-2022 CULTURE URINE Culture Observations: No growth Normal [facility] Comment on above: Performed By: #### P [facility] #### [facility] [address] [place] [address] Dr. Shabnam Rae Covid-19 PCR ([facility])on 12-13 SARS-CoV-2 (COVID-19) RNA ELIJAH+probe Ql (Unsp spec) Not detected Normal NOT DETECTED [facility] Comment on above: Result Comment: When diagnostic testing is negative, the possibility of a false negative should be considered in the context of a patient's recent exposures and the presence of clinical signs and symptoms consistent with SARS-CoV-2. This test is not yet approved or cleared by the [place] Food and Drug Administration (FDA). This test was developed by [employer], [place], [place]. The performance characteristics of this test were validated by [facility]. The results are not intended to be used as the sole means for clinical diagnosis or patient management decisions. [facility] is authorized under Clinical Laboratory Improvement [...] for this test is supported by the [place] of Health and Human Service's declaration that [...] Performed By: #### C VDTBH #### [facility] [address] [place] [address] Dr. Shabnam Rae ER URINE PROFILEon 2 Bilirubin Ql (U) Negative Normal NEGATIVE [facility] Comment on above: Performed By: #### P SASC #### [facility] [address] [place] [address] Dr. Shabnam Rae Clarity (U) CLEAR Normal CLEAR [facility] Comment on above: Performed By: #### P SASC #### [facility] [address] [place] [address] Dr. Shabnam Rae Color (U) YELLOW Normal YELLOW [facility] Comment on above: Performed By: #### P SASC #### [facility] [address] [place] [address] Dr. Shabnam Rae ERUAHD A micrscopic examination will be performed if indicated. Normal [facility] Comment on above: Performed By: #### P SASC #### [facility] [address] [address] [address] Shabnam Rae Glucose Ql (U) Negative Normal NEGATIVE [facility] Comment on above: Performed By: #### P SASC #### [facility] [address] [address] [address] Shabnam Rae Hemoglobin Ql (U) Negative Normal NEGATIVE [facility] Comment on above: Performed By: #### P SASC #### [facility] [address] [address] [address] Shabnam Rae Ketones Ql (U) Negative Normal NEGATIVE [facility] Comment on above: Performed By: #### P SASC #### [facility] [address] [place] [address] Dr. Shabnam Rae LEUKOCYTES Negative Normal NEGATIVE [facility] Comment on above: Performed By: #### P SASC #### [facility] [address] [place] [address] Dr. Shabnam Rae Nitrite Ql (U) Negative Normal NEGATIVE [facility] Comment on above: Performed By: #### P SASC #### [facility] [address] [place] [address] Dr. Shabnam Rae pH (U) 6.5 [pH] Normal 5-9 [facility] Comment on above: Performed By: #### P SASC #### [facility] [address] [place] [address] Dr. Shabnam Rae SPEC GRAVITY 1.010 Normal 1.005-<=1.025 [facility] Comment on above: Performed By: #### P SASC #### [facility] [address] [place] [address] Dr. Shabnam Rae UA PROTEIN Negative Normal NEGATIVE/ TRACE [facility] Comment on above: Performed By: #### P SASC #### [facility] [address] [place] [address] Dr. Shabnam Rae UR MICRO IND NOT INDICATED Normal [facility] Comment on above: Performed By: #### P SASC #### [facility] [address] [place] [address] Dr. Shabnam Rae Urobilinogen Qn (U) 0.2 {Sarai'U}/dL Normal 0.2 - 1. 0 [facility] Comment on above: Performed By: #### P SASC #### [facility] [address] [place] [address] Dr. Shabnam Rae LACTATE/LACTIC ACIDon 2021 Lactate [Moles/Vol] 1.0 mmol/L Normal 0.4-2.0 [facility] Comment on above: Performed By: #### P SASC #### [facility] [address] [place] [address] Dr. Shabnam Rae PROF CHEM 8 (BAS METB)on Anion gap [Moles/Vol] 10.0 mmol/L Normal [facility] Comment on above: Performed By: #### B MP #### [facility] [address] [place] [address] Dr. Shabnam Rae Calcium [Mass/Vol] 8.5 mg/dL Normal 8.5-10.1 [facility] Comment on above: Performed By: #### B MP #### [facility] [address] [place] [address] Dr. Shabnam Rae Chloride [Moles/Vol] 103 mmol/L Normal 98-107 [facility] Comment on above: Performed By: #### B MP #### [facility] [address] [place] [address] Dr. Shabnam Rae CO2 [Moles/Vol] 29.2 mmol/L Normal 21.0-32.0 [facility] Comment on above: Performed By: #### B MP #### [facility] [address] [place] [address] Dr. Shabnam Rae Creatinine [Mass/Vol] 1.25 mg/dL Normal 0.70-1.30 [facility] Comment on above: Performed By: #### B MP #### [facility] [address] [place] [address] Dr. Shabnam Rae EGFR-AF CHINESE >60 Normal >=60 [facility] Comment on above: Performed By: #### B MP #### [facility] [address] [address] [address] Shabnam Rae EGFR-NON AF CHINESE >60 Normal >=60 [facility] Comment on above: Performed By: #### B MP #### [facility] [address] [address] [address] Shabnam Rae Glucose [Mass/Vol] 132 mg/dL Critically high 74-106 [facility] Comment on above: Performed By: #### B MP #### [facility] [address] [address] [address] Shabnam Rae Potassium [Moles/Vol] 3.2 mmol/L Critically low 3.5-5.1 [facility] Comment on above: Performed By: #### B MP #### [facility] [address] [address] [address] Shabnam Rae Sodium [Moles/Vol] 139 mmol/L Normal 136-145 [facility] Comment on above: Performed By: #### B MP #### [facility] [address] [address] [address] Shabnam Rae Urea nitrogen [Mass/Vol] 19.0 mg/dL Critically high 7.0-18.0 [facility] Comment on above: Performed By: #### B MP #### [facility] [address] [place] [address] Dr. Shabnam Rae Urea nitrogen/Creatinine [Mass ratio] 15.2 mg/mg Normal [facility] Comment on above: Performed By: #### B MP #### [facility] [address] [place] [address] Dr. Shabnam Rae CERVICAL SPINE 2 OR 3 [facility] 07-06-2019 CERVICAL SPINE 2 OR 3 S [facility] Department of Radiology [address] [place] [address] Patient Name: MATTY GARCES : [...] findings. Electronically signed by:Bernice Hoyt. Transcribed by: [email or web address], User Resident: RADHA CHIN Electronically Signed by: BERNICE HOYT @ 07/06/2019 08:52 PM I personally read this/these film(s) with this resident Normal The [facility] Comment on above: Order Comment: , STA T READ , STAT READ , , , Ordering Provider - LUCIANO VIEIRA MD , CERVICAL SPINE 2 OR 3 [facility] 04-06-2019 CERVICAL SPINE 2 OR 3 [facility] Department of Radiology [address] [place] [phone] Patient Name: MATTY GARCES : 1970 [...] FALLS Exam: CERVICAL SPINE [address] [facility] CERVICAL SPINE [address] [facility] 04/06/2019 7:28 AM EDT SIGNS AND [...] study. Electronically signed by:Bernice Hoyt. Transcribed by: [email or web address], User Resident: Electronically Signed by: BERNICE HOYT @ 04/06/2019 04:40 PM Normal The [facility] Comment on above: Order Comment: AP/LA T, ODONTOID PLEASE DO SWIMMER'S VIEW FOLLOW UP HARDWARE AND ALIGNMENT, S/P ACDF, RECENT FALLS CERVICAL SPINE 2 OR 3 [facility] 02-17-2019 CERVICAL SPINE 2 OR 3 [facility] Department of Radiology [address] [place] [phone] Patient Name: MATTY GARCES : 1970 [...] findings. Electronically signed by:Bella King. Transcribed by: [email or web address], User Resident: EMILE TINAJERO Electronically Signed by: BELLA KING @ 02/20/2019 11:53 AM I personally read this/these film(s) with this resident Normal The [facility] Comment on above: Order Comment: C-SPI NE 2 OR 3 VIEW POSTOP, EVALUATION HARDWARE AN ALIGNMENT BASIC METABOLIC PANELon 05-2 Calcium [Mass/Vol] 9.2 mg/dL Normal 8.6-10.3 [facility] Comment on above: Order Comment: No: D o not add to previous draw Performed By: #### 5 0103 #### [facility] [address] [place] [address], [place] Chloride [Moles/Vol] 101 mmol/L Normal 98-107 The [facility] Comment on above: Order Comment: No: D o not add to previous draw Performed By: #### 5 0103 #### [facility] [address] [place] [address], [place] CO2 [Moles/Vol] 26 mmol/L Normal 21-31 The [facility] Comment on above: Order Comment: No: D o not add to previous draw Performed By: #### 5 0103 #### [facility] [address] [place] [address], [place] Creatinine [Mass/Vol] 1.02 mg/dL Normal 0.70-1.30 The [facility] Comment on above: Order Comment: No: D o not add to previous draw Performed By: #### 5 0103 #### [facility] [address] [place] [address], [place] GFR/1.73 sq M predicted among blacks MDRD (S/P/Bld) [Vol rate/Area] mL/min/{1.73_m2} Normal >60 The [facility] Comment on above: Order Comment: No: D o not add to previous draw Performed By: #### 5 0103 #### [facility] [address] [place] [address], [place] GFR/1.73 sq M predicted among non-blacks MDRD (S/P/Bld) [Vol rate/Area] mL/min/{1.73_m2} Normal >60 The [facility] Comment on above: Order Comment: No: D o not add to previous draw Performed By: #### 5 0103 #### [facility] [address] [place] [address], [place] Glucose [Mass/Vol] 124 mg/dL High 70-100 The [facility] Comment on above: Order Comment: No: D o not add to previous draw Performed By: #### 5 0103 #### [facility] [address] [place] [address], [place] Potassium [Moles/Vol] 3.9 mmol/L Normal 3.5-5.1 The [facility] Comment on above: Order Comment: No: D o not add to previous draw Performed By: #### 5 0103 #### [facility] [address] [place] [address], [place] Sodium [Moles/Vol] 137 mmol/L Normal 136-145 The [facility] Comment on above: Order Comment: No: D o not add to previous draw Performed By: #### 5 0103 #### [facility] [address] [place] [address], [facility] Urea nitrogen [Mass/Vol] 15 mg/dL Normal 7-25 The [facility] Comment on above: Order Comment: No: D o not add to previous draw Performed By: #### 5 3 #### [facility] [address] [place] [address], [facility] CBC COMPLETE BLOOD COUNTon 0 - Erythrocyte distribution width (RBC) [Ratio] 13.9 % Normal 11.5-15.0 The [facility] Comment on above: Order Comment: No: D o not add to previous draw Performed By: #### 5 0103 #### [facility] [address] [place] [address], [facility] Hematocrit (Bld) [Volume fraction] 50.0 % Normal 39.0-50.0 The [facility] Comment on above: Order Comment: No: D o not add to previous draw Performed By: #### 5 0103 #### [facility] [address] Hemoglobin (Bld) [Mass/Vol] 16.0 g/dL Normal 13.0-17.0 The [facility] Comment on above: Order Comment: No: D o not add to previous draw Performed By: #### 5 0103 #### [facility] [address] [place] [address], [facility] MCH (RBC) [Entitic mass] 27.5 pg Normal 27.0-33.0 The [facility] Comment on above: Order Comment: No: D o not add to previous draw Performed By: #### 5 0103 #### [facility] [address] [facility] [address] MCHC (RBC) [Mass/Vol] 32.0 g/dL Normal 32.0-35.0 The [facility] Comment on above: Order Comment: No: D o not add to previous draw Performed By: #### 5 0103 #### [facility] [address] [facility] [place] [address], [facility] MCV (RBC) [Entitic vol] 85.9 fL Normal 82.0-98.0 The [facility] Comment on above: Order Comment: No: D o not add to previous draw Performed By: #### 5 3 #### [facility] [address] [facility] [address] Nucleated RBC/100 WBC (Bld) [Ratio] 0 % Normal 0-0 The [facility] Comment on above: Order Comment: No: D o not add to previous draw Performed By: #### 5 0103 #### [facility] [address] [facility] [place] [address], [facility] PLAT CNT 249 10*3/uL Normal 150-400 The [facility] Comment on above: Order Comment: No: D o not add to previous draw Performed By: #### 5 3 #### [facility] [address] [facility] [address], [facility] RBC (Bld) [#/Vol] 5.82 10*6/uL High 4.20-5.70 The [facility] Comment on above: Order Comment: No: D o not add to previous draw Performed By: #### 5 0103 #### [facility] [address] [place] [address], [facility] WBC (Bld) [#/Vol] 15.85 10*3/uL High 4.00-10.60 [facility] Comment on above: Order Comment: No: D o not add to previous draw Performed By: #### 5 0103 #### [facility] [address] [facility] Operative Reporton 9 Operative Report MR#: [id number] I [facility] Pt. Name: Matty Garces Room #: [id number] Discharge Date: Birthdate: 1970 OPERATIVE REPORT DATE OF SURGERY: 01/30/2019 SURGEON: Luciano Vieira M.D. 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 POSTOPERATIVE DIAGNOSIS: Failed instrumentation at C6-7 on the right. CAR MECHANIC: ADENIKE Lugo. ANESTHESIA: Endotracheal, Hogan. PROCEDURES: Redo [...] Vieira M.D. Date Trans: 01/31/2019 02:31 Eze/sasha [id number] cc: Venus Mendez M.D. [address] [facility] [phone] [place] The [facility] CERVICAL SPINE 2 OR 3 [facility] 01-30-2019 CERVICAL SPINE 2 OR 3 [facility] Department of Radiology [address] [place] [phone] Patient Name: MATTY GARCES : 1970 [...] documentation Electronically signed by:Justus Montano. Transcribed by: [email or web address], User Resident: Electronically Signed by: JUSTUS MONTANO @ 01/30/2019 04:18 PM Normal The [facility] Comment on above: Order Comment: C6-7 ACDF POC GLUCOSE LABon 01-30-2019 Glucose [Mass/Vol] 106 mg/dL High 70-100 The [facility] Comment on above: Performed By: #### 5 0103 #### [facility] [address] [facility] *MRSA/MSSA DNA NASALon 01-23 *MRSA/MSSA DNA NASAL Clinical Report: (D ) Specimen: NASAL SWAB Collected: 01/23/2019 15:02 Status: Final Last Updated: 01/23/2019 20:14 MSSA DNA (Final) Methicillin Susceptible Staphylococcus aureus DNA Detected MRSA DNA (Final) No Methicillin Resistant Staphylococcus aureus DNA Detected Normal The [facility] Comment on above: Performed By: #### 5 0103 #### [facility] [address] [facility] APTTon 01-23-2019 aPTT Coag (Bld) [Time] 35.4 s High 25.0-35.0 The [facility] Comment on above: Result Comment: ALL RESULTS [...] THIS PURPOSE. Performed By: #### 5 7307, 22606 #### [facility] [address] BASIC METABOLIC PANELon 01-11 Calcium [Mass/Vol] 9.5 mg/dL Normal 8.6-10.3 [facility] Comment on above: Performed By: #### 5 7307, 72832 #### [facility] [address] [place] [address], [facility] Chloride [Moles/Vol] 101 mmol/L Normal 98-107 The [facility] Comment on above: Performed By: #### 5 7307, 25166 #### [facility] [address] [facility] [place] [address], [facility] CO2 [Moles/Vol] 29 mmol/L Normal 21-31 The [facility] Comment on above: Performed By: #### 5 7306, 34054 #### [facility] [address] [place] [address], [place] Creatinine [Mass/Vol] 1.08 mg/dL Normal 0.70-1.30 The [facility] Comment on above: Performed By: #### 5 7306, 42051 #### [facility] [address] [place] [address], [place] GFR/1.73 sq M predicted among blacks MDRD (S/P/Bld) [Vol rate/Area] mL/min/{1.73_m2} Normal >60 The [facility] Comment on above: Performed By: #### 5 7306, 42897 #### [facility] [address] [place] [address], [place] GFR/1.73 sq M predicted among non-blacks MDRD (S/P/Bld) [Vol rate/Area] mL/min/{1.73_m2} Normal >60 The [facility] Comment on above: Performed By: #### 5 7306, 80365 #### [facility] [address] [place] [address], [place] Glucose [Mass/Vol] 87 mg/dL Normal 70-100 The [facility] Comment on above: Performed By: #### 5 7306, 63183 #### [facility] [address] [place] [address], [place] Potassium [Moles/Vol] 4.0 mmol/L Normal 3.5-5.1 The [facility] Comment on above: Performed By: #### 5 73, 72550 #### [facility] [address] [place] [address], [place] Sodium [Moles/Vol] 137 mmol/L Normal 136-145 The [facility] Comment on above: Performed By: #### 5 7307, 02843 #### [facility] [address] [place] [address], [place] Urea nitrogen [Mass/Vol] 12 mg/dL Normal 7-25 The [facility] Comment on above: Performed By: #### 5 73Al, 05931 #### [facility] [address] CBC W/DIFFon 01-23-2019 ABS BASOPHILS 0.1 10*3/uL Normal 0.0-0.2 The [facility] Comment on above: Performed By: #### 5 Al, 01416 #### [facility] [address] [facility]. [address] ABS IMM GRANS 0.0 10*3/uL Normal 0.0-0.2 The [facility] Comment on above: Performed By: #### 5 Al, 44790 #### [facility] [address] ABS NEUTROPHILS 5.3 10*3/uL Normal 1.6-7.6 The [facility] Comment on above: Performed By: #### 5 Al, 32065 #### [facility] [address] Basophils/100 WBC (Bld) 0.9 % Normal 0.0-1.0 The [facility] Comment on above: Performed By: #### 5 Al, 34853 #### [facility] [address] Eosinophils (Bld) [#/Vol] 0.2 10*3/uL Normal 0.0-0.5 The [facility] Comment on above: Performed By: #### 5 Al, 72842 #### [facility] [address] Eosinophils/100 WBC (Bld) 2.3 % Normal 0.0-6.0 The [facility] Comment on above: Performed By: #### 5 Al, 56742 #### [facility] [address] Erythrocyte distribution width (RBC) [Ratio] 13.8 % Normal 11.5-15.0 The [facility] Comment on above: Performed By: #### 5 7306, 51906 #### [facility] [address] [place] [id number], [facility] Hematocrit (Bld) [Volume fraction] 49.6 % Normal 39.0-50.0 The [facility] Comment on above: Performed By: #### 5 7306, 94532 #### [facility] [address] [facility] [place] [address], [facility] Hemoglobin (Bld) [Mass/Vol] 16.4 g/dL Normal 13.0-17.0 The [facility] Comment on above: Performed By: #### 5 7306, 00654 #### [facility] [address] [facility] [place] [address], [facility] IMMATURE GRANS 0.5 % Normal 0.0-1.0 The [facility] Comment on above: Performed By: #### 5 7306, 39870 #### [facility] [address] [facility] [place] [address], [facility] Lymphocytes (Bld) [#/Vol] 1.2 10*3/uL Normal 1.2-4.0 The [facility] Comment on above: Performed By: #### 5 7306, 93722 #### [facility] [address] [facility] [place] [address], [facility] Lymphocytes/100 WBC (Bld) 16.6 % Low 20.0-45.0 The [facility] Comment on above: Performed By: #### 5 7306, 90353 #### [facility] [address] [place] [address], [facility] MCH (RBC) [Entitic mass] 27.8 pg Normal 27.0-33.0 The [facility] Comment on above: Performed By: #### 5 7306, 65535 #### [facility] [address] [place] [address], [facility] MCHC (RBC) [Mass/Vol] 33.1 g/dL Normal 32.0-35.0 The [facility] Comment on above: Performed By: #### 5 7306, 87955 #### [facility] [address] [place] [address], [facility] MCV (RBC) [Entitic vol] 84.2 fL Normal 82.0-98.0 The [facility] Comment on above: Performed By: #### 5 7306, 45909 #### [facility] [address] [place] [address], [facility] Monocytes (Bld) [#/Vol] 0.7 10*3/uL Normal 0.1-1.0 The [facility] Comment on above: Performed By: #### 5 7306, 76508 #### [facility] [address] [place] [address], [facility] MONOS 9.4 % Normal 5.0-12.0 The [facility] Comment on above: Performed By: #### 5 7306, 15631 #### [facility] [address] [place] [address], [facility] Neutrophils/100 WBC (Bld) 70.3 % Normal 40.0-72.0 The [facility] Comment on above: Performed By: #### 5 7306, 68162 #### [facility] [address] [place] [address], [facility] Nucleated RBC/100 WBC (Bld) [Ratio] 0 % Normal 0-0 The [facility] Comment on above: Performed By: #### 5 7306, 40721 #### [facility] [address] [place] [id number], [place] PLAT CNT 235 10*3/uL Normal 150-400 The [facility] Comment on above: Performed By: #### 5 73, 52927 #### [facility] [address] [facility] [address] RBC (Bld) [#/Vol] 5.89 10*6/uL High 4.20-5.70 The [facility] Comment on above: Performed By: #### 5 7307, 25353 #### [facility] [address] [facility] [address] WBC (Bld) [#/Vol] 7.48 10*3/uL Normal 4.00-10.60 The [facility] Comment on above: Performed By: #### 5 7307, 50479 #### [facility] [address] [facility] PROTHROMBIN TIMEon 9 INR Coag (PPP) [Relative time] 1.12 {INR} Normal 0.91-1.16 The [facility] Comment on above: Result Comment: ACCC P [...] CHEST 1995;108:[id number]-246S. Performed By: #### 5 7307, 97848 #### [facility] [address] [facility] PT Coag (PPP) [Time] 14.4 s Normal 12.3-14.8 The [facility] Comment on above: Result Comment: ALL RESULTS MUST BE INTERPRETED WITH RESPECT TO BLOOD DRAWING ARTIFACT OR DILUTION ERROR OF ANTICOAGULANT AT THE TIME OF SAMPLING. Performed By: #### 5 7307, 38942 #### [facility] [address] [facility]. [address] TYPE AND SCREENon 01-23-2019 ABO INTERPRETATION A Normal [facility] Comment on above: Performed By: #### 5 7307, 16771 #### [facility] [address] [facility]. [address] RH INTERPRETATION Positive Normal The [facility] Comment on above: Performed By: #### 5 7307, 74761 #### [facility] [address] [facility] 3D CERVICAL SPINE WO CONT RASTon 01-12-2019 CT 3D CERVICAL SPINE WO CONTRAST [facility] Department of Radiology [address] [place] [address] Patient Name: MATTY GARCES : 1970 Sex: M Age: Race: White Pt. Location: Patient Status: D Ordered Date: 01/10/2019 2:15:00 PM Completed Date: 01/12/2019 10:32 AM Requesting Provider: LUCIANO VIEIRA Attending Provider: LUCIANO VIEIRA Report Copy To: VENUS MENDEZ Signs & Symptoms: M48.02 Spinal stenosis, cervical region I10 History: Althea para auth # [id number] 01/10/19-02/09/19 [id number] *er Comments: Exam: CT 3D CERVICAL SPINE [...] incomplete Electronically signed by:Ten Garland. Transcribed by: [email or web address], User Resident: Electronically Signed by: TEN GARLAND @ 01/13/2019 09:18 AM Normal The [facility] CERVICAL SPINE 2 OR 3 V[facility]on 01-05-2019 CERVICAL SPINE 2 OR 3 S [facility] Department of Radiology [address] [place] [address] Patient Name: MATTY GARCES : 1970 Sex: M Age: Race: White Pt. Location: Patient Status: O Ordered Date: 01/05/2019 9:00:00 AM Completed Date: 01/05/2019 09:06 AM Requesting Provider: LUCIANO VIEIRA Attending Provider: LUCIANO VIEIRA Report Copy To: Signs & Symptoms: M48.02 Spinal stenosis, cervical region I10 History: [place] Comments: , , , Ordering Provider - LUCIANO VIEIRA MD , Exam: CERVICAL SPINE [address] [facility] CERVICAL SPINE [address] [facility] 01/05/2019 9:06 AM EDT SIGNS AND [...] findings. Electronically signed by:Ten Garland. Transcribed by: [email or web address], User Resident: SHELLY DELA CRUZ Electronically Signed by: TEN GARLAND @ 01/05/2019 12:37 PM I personally read this/these film(s) with this resident Normal The [facility] Comment on above: Order Comment: , , = ========= , Ordering Provider - LUCIANO VIEIRA MD , CERVICAL SPINE 2 OR 3 [facility] 08-30-2018 CERVICAL SPINE 2 OR 3 [facility] Department of Radiology [address] [place] [phone] Patient Name: MATTY GARCES : 1970 Sex: M Age: Race: White Pt. Location: Patient Status: O Ordered Date: 08/30/2018 9:35:00 AM Completed Date: 08/30/2018 09:43 AM Requesting Provider: LUCIANO VIEIRA Attending Provider: LUCIANO VIEIRA Report Copy To: VENUS MENDEZ Signs & Symptoms: M50.90 Cervical disc disorder, unsp, unspecified cervical region I10 History: [place] Comments: , POST OP XRAY AP/LAT ONLY [...] findings. Electronically signed by:Bella King. Transcribed by: [email or web address], User Resident: RYAN HEAD Electronically Signed by: BELLA KING @ 08/30/2018 05:45 PM I personally read this/these film(s) with this resident Normal The [facility] Comment on above: Order Comment: , POS T OP XRAY AP/LAT ONLY , POST OP XRAY AP/LAT ONLY , , , Ordering Provider - LUCIANO VIEIRA MD , Operative Reporton 8 Operative Report MR#: [id number] I [facility] Pt. Name: Matty Garces Room #: [id number] Discharge Date: Birthdate: 1970 OPERATIVE REPORT DATE OF SURGERY: 08/17/2018 SURGEON: Luciano Vieira M.D. PREOPERATIVE DIAGNOSIS: Herniated cervical disk at C6-7. POSTOPERATIVE DIAGNOSIS: Herniated cervical disk at C6-7. CAR MECHANIC: ADENIKE Larios. ANESTHESIA: Endotracheal, Braida. PROCEDURE: Anterior [...] Vieira M.D. Date Trans: 08/17/2018 11:25 P/sasha [id number] cc: Venus Mendez M.D. [address] [address] [place] The [facility] CERVICAL SPINE 2 OR 3 [facility] 08-17-2018 CERVICAL SPINE 2 OR 3 [facility] Department of Radiology [address] [place] [phone] Patient Name: MATTY GARCES : 1970 [...] findings. Electronically signed by:Bernice Hoyt. Transcribed by: [email or web address], User Resident: EMILE TINAJERO Electronically Signed by: BERNICE HOYT @ 08/18/2018 01:06 PM I personally read this/these film(s) with this resident Normal The [facility] Comment on above: Order Comment: C6-7 ACDF with POC GLUCOSE LABon 08-17-2018 Glucose [Mass/Vol] 113 mg/dL High 70-100 The [facility] Comment on above: Performed By: #### 8 5499 #### [facility] [address] [place] [address], [facility] RBC'S 2 UNITSon 08-17-2018 CROSSMATCH INTERP 1 COMP Normal [facility] Comment on above: Performed By: #### 8 6002 #### [facility] [address] [place] [address], [facility] CROSSMATCH INTERP 2 COMP Normal [facility] Comment on above: Performed By: #### 8 6002 #### [facility] [address] [place] [address], [facility] PRODUCT CODE 1 E0336 Normal The [facility] Comment on above: Performed By: #### 8 6002 #### [facility] [address] [place] [address], [facility] PRODUCT CODE 2 E0336 Normal The [facility] Comment on above: Performed By: #### 8 6002 #### [facility] [address] [place] [address], [facility] PRODUCT STATUS 1 RE Normal The [facility] Comment on above: Result Comment: Resu lt changed by IF on 08/20/2018 07:48. The previous value was XM. Performed By: #### 8 6002 #### [facility] [address] [place] [address], [facility] PRODUCT STATUS 2 RE Normal The [facility] Comment on above: Result Comment: Resu lt changed by IF on 08/20/2018 07:48. The previous value was XM. Performed By: #### 8 6002 #### [facility] [address] UNIT ABO 1 A Normal [facility] Comment on above: Performed By: #### 8 6002 #### [facility] [address] [place] [address], [facility] UNIT ABO 2 A Normal The [facility] Comment on above: Performed By: #### 8 6002 #### [facility] [address] JONEL AVFrance. [address] UNIT ID 1 [id number] Normal [facility] Comment on above: Performed By: #### 8 6002 #### [facility] [address] JON[address] JEAN. [address] UNIT ID 2 [id number] Normal The [facility] Comment on above: Performed By: #### 8 6002 #### [facility] [address] JON[address] JEAN. [address] UNIT RH 1 Positive Normal The [facility] Comment on above: Performed By: #### 8 6002 #### [facility] 3000 [facility] [address] UNIT RH 2 Positive Normal [facility] Comment on above: Performed By: #### 8 6002 #### [facility] 3000 [facility] [address] *MRSA/MSSA CULTUREon 018 *MRSA/MSSA CULTURE Clinical Report: (D) Specimen: NASAL SWAB Collected: 08/02/2018 12:37 Status: Final Last Updated: 08/03/2018 14:26 ISO (Final) No Methicillin Resistant Staphylococcus aureus Isolated (MRSA) ISO (Final) Methicillin Sensitive Staphylococcus aureus (MSSA) Isolated Normal The [facility] Comment on above: Performed By: #### 3 1302 #### [facility] [address] APTTon 08-02-2018 aPTT Coag (Bld) [Time] 31.2 s Normal 25.0-35.0 [facility] Comment on above: Result Comment: ALL RESULTS [...] THIS PURPOSE. Performed By: #### 5 7307, [id number] #### [facility] [address] [place] [address], [facility] BASIC METABOLIC PANELon 11-2 0 Calcium [Mass/Vol] 9.4 mg/dL Normal 8.6-10.3 [facility] Comment on above: Performed By: #### 0 0071 #### [facility] [address] [place] [address], [facility] Chloride [Moles/Vol] 103 mmol/L Normal 98-107 The [facility] Comment on above: Performed By: #### 0 0071 #### [facility] [address] [place] [address], [facility] CO2 [Moles/Vol] 29 mmol/L Normal 21-31 [facility] Comment on above: Performed By: #### 0 0071 #### [facility] [address] [place] [address], [facility] Creatinine [Mass/Vol] 1.06 mg/dL Normal 0.70-1.30 The [facility] Comment on above: Performed By: #### 0 0071 #### [facility] [address] [place] [address], [facility] GFR/1.73 sq M predicted among blacks MDRD (S/P/Bld) [Vol rate/Area] mL/min/{1.73_m2} Normal >60 The [facility] Comment on above: Performed By: #### 0 0071 #### [facility] [address] GFR/1.73 sq M predicted among non-blacks MDRD (S/P/Bld) [Vol rate/Area] mL/min/{1.73_m2} Normal >60 The [facility] Comment on above: Performed By: #### 0 0071 #### [facility] [address] [place] [address], [facility] Glucose [Mass/Vol] 84 mg/dL Normal 70-100 The [facility] Comment on above: Performed By: #### 0 0071 #### [facility] [address] Potassium [Moles/Vol] 4.0 mmol/L Normal 3.5-5.1 The [facility] Comment on above: Performed By: #### 0 0071 #### [facility] [address] Sodium [Moles/Vol] 140 mmol/L Normal 136-145 The [facility] Comment on above: Performed By: #### 0 0071 #### [facility] [address] [place] [address], [facility] Urea nitrogen [Mass/Vol] 20 mg/dL Normal 7-25 The [facility] Comment on above: Performed By: #### 0 0071 #### [facility] [address] [place] [address], [facility] CBC W/DIFFon 08-02-2018 ABS BASOPHILS 0.1 10*3/uL Normal 0.0-0.2 The [facility] Comment on above: Performed By: #### 5 3 #### [facility] [address] ABS IMM GRANS 0.1 10*3/uL Normal 0.0-0.2 The [facility] Comment on above: Performed By: #### 5 0103 #### [facility] [address] [place] [address], [facility] ABS NEUTROPHILS 4.2 10*3/uL Normal 1.6-7.6 [facility] Comment on above: Performed By: #### 5 3 #### [facility] [address] [place] [address], [facility] Basophils/100 WBC (Bld) 1.3 % High 0.0-1.0 The [facility] Comment on above: Performed By: #### 5 3 #### [facility] [address] [facility] [place] [address], [facility] Eosinophils (Bld) [#/Vol] 0.1 10*3/uL Normal 0.0-0.5 The [facility] Comment on above: Performed By: #### 102 #### [facility] 3000 [facility] [place] [address], [facility] Eosinophils/100 WBC (Bld) 2.0 % Normal 0.0-6.0 The [facility] Comment on above: Performed By: #### 5 102 #### [facility] [address] Erythrocyte distribution width (RBC) [Ratio] 13.6 % Normal 11.5-15.0 [facility] Comment on above: Performed By: #### 3 #### [facility] 3000 [facility] [place] [address], [facility] Hematocrit (Bld) [Volume fraction] 44.3 % Normal 39.0-50.0 The [facility] Comment on above: Performed By: #### 5 3 #### [facility] [address] [facility] [address], [facility] Hemoglobin (Bld) [Mass/Vol] 15.1 g/dL Normal 13.0-17.0 The [facility] Comment on above: Performed By: #### 5 3 #### [facility] [address] [place] [address], [facility] IMMATURE GRANS 1.1 % High 0.0-1.0 The [facility] Comment on above: Performed By: #### 5 0103 #### [facility] [address] [facility] [place] [address], [facility] Lymphocytes (Bld) [#/Vol] 1.2 10*3/uL Normal 1.2-4.0 The [facility] Comment on above: Performed By: #### 5 0103 #### [facility] [address] [place] [address], [facility] Lymphocytes/100 WBC (Bld) 18.3 % Low 20.0-45.0 The [facility] Comment on above: Performed By: #### 5 0103 #### [facility] [address] [place] [address], [facility] MCH (RBC) [Entitic mass] 29.0 pg Normal 27.0-33.0 The [facility] Comment on above: Performed By: #### 5 0103 #### [facility] [address] [place] [address], [facility] MCHC (RBC) [Mass/Vol] 34.1 g/dL Normal 32.0-35.0 The [facility] Comment on above: Performed By: #### 5 0103 #### [facility] 3000 [facility] [place] [address], [facility] MCV (RBC) [Entitic vol] 85.0 fL Normal 82.0-98.0 The [facility] Comment on above: Performed By: #### 5 0103 #### [facility] [address] [place] [address], [facility] Monocytes (Bld) [#/Vol] 0.7 10*3/uL Normal 0.1-1.0 The [facility] Comment on above: Performed By: #### 5 3 #### [facility] [address] [place] [address], [facility] MONOS 11.1 % Normal 5.0-12.0 The [facility] Comment on above: Performed By: #### 5 0103 #### [facility] [address] [place] [address], [facility] Neutrophils/100 WBC (Bld) 66.2 % Normal 40.0-72.0 The [facility] Comment on above: Performed By: #### 5 0103 #### [facility] [address] [place] [address], [facility] Nucleated RBC/100 WBC (Bld) [Ratio] 0 % Normal 0-0 The [facility] Comment on above: Performed By: #### 5 0103 #### [facility] [address] [place] [address], [facility] PLAT CNT 179 10*3/uL Normal 150-400 The [facility] Comment on above: Performed By: #### 5 0103 #### [facility] [address] [place] [address], [facility] RBC (Bld) [#/Vol] 5.21 10*6/uL Normal 4.20-5.70 The [facility] Comment on above: Performed By: #### 5 3 #### [facility] [address] [place] [address], [facility] WBC (Bld) [#/Vol] 6.39 10*3/uL Normal 4.00-10.60 The [facility] Comment on above: Performed By: #### 5 102 #### [facility] [address] [place] [address], [facility] CERVICAL SPINE 4 OR 5 VIEWSo n 08-02-2018 CERVICAL SPINE 4 OR 5 VIEWS [facility] Department of Radiology [address] [place] [id number] Patient Name: MATTY GARCES : 1970 Sex: M Age: Race: White Pt. Location: 85 Patient Status: D Ordered Date: 08/02/2018 1:05:00 PM Completed Date: 08/02/2018 01:29 PM Requesting Provider: LUCIANO VIEIRA Attending Provider: LUCIANO VIEIRA Report Copy To: VENUS MENDEZ Signs & Symptoms: Z01.89 Encounter for other specified special examinations I10 History: [place] Comments: , PREOP XRAY AP/LAT \EANDE\ FLEX/EX [...] findings. Electronically signed by:Bella King. Transcribed by: [email or web address], User Resident: EMILE TINAJERO Electronically Signed by: BELLA KING @ 08/03/2018 11:58 AM I personally read this/these film(s) with this resident Normal The [facility] Comment on above: Order Comment: , PRE OP XRAY AP/LAT \EANDE\ FLEX/EX , PREOP XRAY AP/LAT \EANDE\ FLEX/EX , , , Ordering Provider - LUCIANO VIEIRA MD , PROTHROMBIN TIMEon 8 INR Coag (PPP) [Relative time] 1.15 {INR} Normal 0.91-1.16 The [facility] Comment on above: Result Comment: ACCC P [...] CHEST 1995;108:[id number]-246S. Performed By: #### 5 7307, [id number] #### [place] [address] [place] [address], [facility] PT Coag (PPP) [Time] 14.7 s Normal 12.3-14.8 The [facility] Comment on above: Result Comment: ALL RESULTS MUST BE INTERPRETED WITH RESPECT TO BLOOD DRAWING ARTIFACT OR DILUTION ERROR OF ANTICOAGULANT AT THE TIME OF SAMPLING. Performed By: #### 5 7307, [id number] #### [facility] [address] [facility] [place] [address], [facility] TYPE AND SCREENon 08-02-2018 ABO INTERPRETATION A Normal [facility] Comment on above: Order Comment: 2 uni ts 2 units 2 units 2 units 2 units Performed By: #### 6 2586 #### [facility] [address] [place] [address], [facility] RH INTERPRETATION Positive Normal The [facility] Comment on above: Order Comment: 2 uni ts 2 units 2 units 2 units 2 units Performed By: #### 6 2586 #### [facility] [address] [facility] [place] [address], [facility] URINALYSIS REFLEXon 08-02-20 18 Appearance (U) CLEAR Normal CLEAR The [facility] Comment on above: Performed By: #### 3 0965 #### [facility] [address] [place] [address], [facility] Bilirubin [Mass/Vol] Negative Normal NEGATIVE The [facility] Comment on above: Performed By: #### 3 0965 #### [facility] [address] [place] [address], [facility] BLOOD Negative Normal NEGATIVE The [facility] Comment on above: Performed By: #### 3 0965 #### [facility] [address] [place] [address], [facility] Color (U) YELLOW Normal YELLOW The [facility] Comment on above: Performed By: #### 3 0965 #### [facility] [address] [place] [address], [facility] Glucose [Mass/Vol] 150 mg/dL Abnormal NEGATIVE The [facility] Comment on above: Performed By: #### 3 0965 #### [facility] [address] [place] [address], [facility] KETONE Negative Normal NEGATIVE The [facility] Comment on above: Performed By: #### 3 0965 #### [facility] [address] [place] [address], [facility] [place] Negative Normal NEGATIVE [facility] Comment on above: Performed By: #### 3 0965 #### [facility] [address] [place] [address], [facility] MICRO NOT DONE negative chemical reactions unless requested in original order Normal The [facility] Comment on above: Performed By: #### 3 0965 #### [facility] [address] [place] [address], [facility] Nitrite Ql (U) Negative Normal NEGATIVE [facility] Comment on above: Performed By: #### 3 0965 #### [facility] [address] [place] [address], [facility] pH (Bld) 5.0 Normal 5.0-8.0 [facility] Comment on above: Performed By: #### 3 0965 #### [facility] [address] [place] [address], [facility] Protein (U) [Mass/Vol] Negative Normal NEGATIVE [facility] Comment on above: Performed By: #### 3 0965 #### [facility] [address] [place] [address], [facility] SPEC GRAV 1.024 High 1.015-1.020 [facility] Comment on above: Performed By: #### 3 0965 #### [facility] [address] [place] [address], [facility] Vital Signs Date Time Vital Sign Value Performing Clinician Bijali litlamont 06-15-2022 10:30-0400 Blood Pressure Location [facility] Lue [facility] 02-25-2022 10:30-0400 Diastolic blood pressure 107 mm[Hg] Viola Lue [facility] 02-25-2022 10:30-0400 Heart rate 74 /min Viola Lue [facility] 02-25-2022 10:30-0400 Respiratory rate 16 /min Viola Lue [facility] 02-25-2022 10:30-0400 Systolic blood pressure 157 mm[Hg] Viola Lue [facility] Encounters Encounter Date Encounter Type Care Provider Facility Start: 01-10-2024 End: 01-11-2024 ambulatory VALENCIA DE LEÓN Not Available Start: 01-03-2024 End: 01-03-2024 ambulatory Trey Vallejo Facility:[facility] Start: 01-03-2024 End: 01-03-2024 ambulatory DPM Trey Vallejo Work Phone: [facility] Work Phone: Start: 01-03-2024 End: 01-03-2024 Departed [facility]: [facility] Start: 12-29-2023 End: 12-29-2023 ambulatory RUBÉN GEIGER Not Available Start: 11-29-2023 End: 11-30-2023 ambulatory Diallo Beauchamp MD Facility:[facility] Start: 10-18-2023 End: 10-19-2023 ambulatory Diallo Beauchamp MD Facility:[facility] Start: 09-27-2023 End: 09-27-2023 ambulatory RUBÉN GEIGER Not Available Start: 08-30-2023 End: 08-31-2023 ambulatory Diallo Beauchamp MD Facility:[facility] Start: 07-12-2023 End: 07-13-2023 ambulatory Diallo Beauchamp MD Facility:[facility] Start: 06-14-2023 End: 06-15-2023 ambulatory Kirkus Woo Beauchamp MD Facility:[facility] Start: 03-11-2023 End: 03-11-2023 ambulatory Rubén Geiger Facility:[facility] Start: 12-06-2022 End: 12-06-[address] VENUS MENDEZ . Facility:[facility] Start: 12-05-2022 Encounter for genera l adult medical examination without abnormal findings DR VENUS MENDEZ . [facility] Start: 12-01-2022 End: 12-02-2022 ambulatory [...] [facility] Start: 01-04-2022 End: 01-05-[address] VENUS MENDEZ . Facility: Start: 01-30-2019 End: 02-01-2019 Evaluation and management of inpatient PROVIDER UNKNOWN Facility:[facility] Start: 08-17-2018 End: 08-18-2018 Patient encounter procedure PROVIDER UNKNOWN Facility:[facility] Procedures Date Procedure Procedure Detail Performing Clinician Start: 12-01-[address] FRANKLIN MENDEZ . Comment on above: Performed By: #### P [facility] #### [facility] [address] [place] [address] Dr. Shabnam Rae Start: 01-30-2019 FUSION CERV JT W INT BD FUS DEV, ANT APPR A COL, OPEN [facility] Start: 01-30-2019 REMOVAL OF INT FIX F ROM CERVCAL VERTEBRA, OPEN APPROACH [facility] Start: 01-23-2019 Antibody screen PROVIDE R UNKNOWN Comment on above: Performed By: #### 5 7307, 44302 #### [facility] [address] Start: 08-17-2018 ANESTH SPINE CORD SURGERY [...] units Performed By: #### 6 2586 #### [facility] [address] Colonoscopy Viola Grullon Hemorrhoids (disorder) Viola Lue Hernia of abdominal cavity (disorder) Viola Anna Mariee Tonsillectomy Viola Mitchel Payers Date Payer Category Payer Self-pay [id number] 2022 Medicaid [id number] 2022 Unknown 1970 Unknown [id number] 2.16.8 40.1.016680.3.579.2.647 1970 Unknown [id number] 2.16.8 40.1.696562.3.579.2.647 1970 Unknown [id number] 2.16.84 0.1.487904.3.579.2.593 1970 Unknown [id number] 2.16.84 0.1.151132.3.579.2.593 1970 Unknown [id number] 2.16.84 0.1.375155.3.579.2.593 1970 Unknown [id number] 2.16.84 0.1.248784.3.579.2.593 1970 Unknown [id number] 2.16.84 0.1.584773.3.579.2.593 1970 Unknown [id number] 2.16.84 0.1.589020.3.579.2.593 1970 Unknown [id number] 2.16. 840.1.413419.3.579.2.196 1970 Unknown [id number] 2.16. 840.1.504755.3.579.2.196 1970 Unknown [id number] 2.16. 840.1.158537.3.579.2.196 1970 Unknown [id number] 2.16. 840.1.859015.3.579.2.196 1970 Unknown [id number] 2.16. 840.1.085277.3.579.2.196 1970 Unknown [id number] 2.16.84 0.1.232881.3.579.2.1259 1970 Unknown [id number] 2.16.84 0.1.149071.3.579.2.1259 1970 Unknown [id number] 2.16.84 0.1.956079.3.579.2.1259 1970 Unknown [id number] 2.16.84 0.1.404758.3.579.2.1259 1959 Unknown [id number] Unknown [id number] Unknown [id number] 2.16.8 40.1.741987.3.579.2.531 Unknown [id number] 2.16.8 40.1.593861.3.579.2.531 Social History Date Type Detail Facility Tobacco smoking status No Smokin g Status Entered [facility] Sex Assigned At Male [facility] Start: 05-15-2018 Tobacco smoking stat us NHIS Ex-smoker (finding) [facility] Start: 1970 Sex Assigned At Male F [facility] Functional Status Date Assessment Result Facility 02-25-2022 Functional Status N/A [facility] Progress note 06-09-2023 Note Date & Type Note Facility 06-09-2023 Note [facility] Continue GDMT- Diuretic therapy Monitor daily weights, I&O, fluid restriction 1.5-2L/day, renal function and electrolytes- [facility] Clinical Note 03-26-2022 Note Date & Type [...] authenticated by: ALVINA CAICEDO Date: 2022-03-26 10:47 [facility] Discharge instructions 02-25-2022 Note Date [...] Watch the hydrocele for any changes. Take [id number] and prescription medicines only as told by [...] 02/17/2011 Document Revised: 09/10/2018 Document Reviewed: 09/10/2018 [employer] Patient Education 2020 [place]. Follow Up Care 01/28/2022 10:36:35 With:Mitchel DELGADO, Viola Cohn URL, URO Address: When: Unknown [facility] Evaluation + Plan note Note Date & Type Note Facility Evaluation + Plan note No data available for this section [facility] Evaluation note Note Date & Type Note Facility Evaluation note No assessment information availa [facility] Work Phone: Progress note Note Date & Type Note Facility Progress note No data available for this section [facility] Summary Purpose Family History No Family History Records FoundNo Family History Records FoundNo Family History Records FoundNo Family History Records FoundNo Family History Records FoundNo Family History Records FoundNo Family History Records Found Advance Directives No Advanced Directives Records Found Advance Directive Response Recorded Date/ Time Advance Directives No May 12:42pm Hospital Course Note MR#: [id number] I [facility] Pt. Name: Matty Garces Admitted: 01/30/2019 [...] and content) DATE CREATED AUTHOR 07/19/2019 [facility] DATE CREATED AUTHOR AUTHOR'S ORGANIZ ATION 02/27/2022 [facility] DATE CREATED AUTHOR AUTHOR'S ORGANIZ ATION 12/08/2022 [facility] DATE CREATED AUTHOR AUTHOR'S ORGANIZ ATION 06/17/[address] [facility] DATE CREATED AUTHOR AUTHOR'S ORGANIZ ATION 12/03/2023 [facility] DATE CREATED AUTHOR AUTHOR'S ORGANIZ ATION 01/08/2024 [facility] DATE CREATED AUTHOR AUTHOR'S ORGANIZ ATION 01/15/2024 [facility] Care Team (unrecognized sect ion and [...] BE BASED ON THE PRIMARY CLINICAL RECORDS. [facility] [employer] provides no warranty or guarantee of the accuracy or completeness of information in this document.
== END 2024-01-26 11:59 | disposition home or self-care (01) ==
LOC: RAD 11:58
PROVIDERS: PCP Family Medicine; Visit Provider Nurse Practitioner Family
DX: M23.91 Unspecified internal derangement of right knee (principal); Z01.89 Encounter for other specified special examinations; S83.241A Other tear of medial meniscus, current injury, right knee, initial encounter
CPT/HCPCS: 70030; 73721

== ENCOUNTER 2024-02-04 11:00 | Outpatient (OUT) | payer MEDICAID, SELFPAY | END 2024-02-04 11:01 | disposition home or self-care (01) | LOC: WC 02-09 09:07 | PROVIDERS: PCP Family Medicine; Visit Provider Podiatrist Foot & Ankle Surgery | DX: L97.512 Non-pressure chronic ulcer of other part of right foot with fat layer exposed (principal); E11.621 Type 2 diabetes mellitus with foot ulcer | CPT/HCPCS: 11042 ==

== ENCOUNTER 2024-02-05 12:10 | Emergency (ER) | payer MEDICAID, SELFPAY ==
[2024-02-05 12:22] VITALS: BP 132/108; PULSE 100; TEMP 36.9; O2SAT 95
--- OUTSIDE RECORDS SUMMARY | 2024-02-05 12:40 | XMS_ITS | CCD ---
Author Organization [facility] Care Team Providers Care [employer] Caser Name Role Phone UNKNOWN, PROVIDER Admitting Unavailable UNKNOWN, PROVIDER Attending Unavailable VENUS MENDEZ Referring Unavailable VENUS MENDEZ Primary Care Unavailable NC Procedure Practitioner Unavailab le UNKNOWN, PROVIDER Surgeon Unavailable NC Procedure Practitioner Unavailab le SANDRA BILL Surgeon Unavailable UNKNOWN, PROVIDER Admitting Unavailable UNKNOWN, PROVIDER Attending Unavailable VENUS MENDEZ Referring Unavailable VENUS MENDEZ Primary Care Unavailable NC Procedure Practitioner Unavailab le UNKNOWN, PROVIDER Surgeon [...] DR DONOVAN Consulting Unavailable HOY ., DR DONOVNA Primary Care Unavailable AGA, DR JEWELL Bloom Admitting Unavailabl e AGA, DR JEWELL Bloom Attending Unavailabl e AGA, DR JEWELL Blomo Consulting Unavailabl e SASCHA, DR ALVINA Martinez [...] Unavailable Quynh DELGADO, Diallo Berkowitz Attending Unavailable Gishruthi DELGADO, [...] source) Aspartame Drug Allergy 08-17-20 18 [facility] Rep[facility] (1 source) avoid; Translations: [Unknown] Propensity to adverse reactions (disorder) 08-17-20 18 [facility] Rep[facility] (1 source) vitamin B12; Translations: [cyanocobalamin] Drug Allergy Unknown (qualifier value) [facility] (1 source) Acetaminophen / HYDROcodone Drug Allergy [facility] (1 source) Corticosteroids Drug allergy (disorder) [facility] (1 source) fentaNYL Drug Allergy [facility] (1 source) Misc-Food; Translations: [Misc-Food] Food allergy (disorder) [facility] (1 source) Corticosteroids Drug allergy (disorder) 05-14-20 18 [facility] Medications Current Medications Medication Drug [...] Bedtime May 14, 2018 12:00am Vit D3-Folic [id number] (1 source) Start: 05-14-2018 take 1 tablet by mouth once daily Vit D3-Folic [id number]-[id number]-B12 Active 1 TAB PO Daily May 14, [...] Onset: 3 Chronic Other aftercare (1 source) 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; 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] Onset: 3 Episodic Other aftercare (1 source) Other fdc (current) drug therapy; Translations: [OTH PUBLICITY WRITER CURRENT DRUG THERAPY] Onset: 3 Episodic Other [...] Test Name Value Interpretation Reference Range Facility [facility] 01-03-2024 L Specimen: [id number] Received: 01/03/24 Status: GIOVANNI Jacinto Num: [id number] Spec Type: Surgical Subm Dr: Trey Vallejo DPM, MS Tissues: A Bone Fragments - Pathologic Fracture (PROXIMAL PHALANX RIGHT HALLU) Procedures: HE/2, Gross/Micro L5, Decalcification Age/ Patient Sex Location Account Attending Physician Matty Garces 53/M LABELL [id number] Trey Vallejo DPM, MS SPEC NUM: [id number] RECD: 01/03/24 STATUS: GIOVANNI KRAMER NUM: [id number] SOFY: 01/03/[address]: Trey Vallejo DPM, MS ENTERED: 01/03/[address] [facility] DR: Toño,Ayesha SPEC TYPE: Surgical DEPT: [...] Sectioning reveals unremarkable yellow, spongy bone matrix. 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 Clinical history: Non-pressure chronic ulcer . Right hallux IPJ arthroplasty with wound debridement and graft application TW Specimen: [id number] Received: 01/03/24 Status: GIOVANNI Jacinto Num: [id number] Spec Type: Surgical Subm Dr: Trey Vallejo,DPJose Eduardo, MS Tissues: A Bone Fragments - Pathologic Fracture (PROXIMAL PHALANX RIGHT HALLU) Procedures: HE/2, Gross/Micro L5, Decalcification Patient: Matty Garces [id number] (Continued) Specimen: [id number] Received: 01/03/24 (Continued) Signed (signature on file) Viral Rae MD 01/06/24 1838 Specimen: [id number] Received: 01/03/24 Status: GIOVANNI Ophelia Num: [id number] Spec Type: Surgical Subm Dr: Trey Vallejo,DPM, MS Tissues: A Bone Fragments - Pathologic Fracture (PROXIMAL PHALANX RIGHT HALLU) Procedures: HE/2, Gross/Micro L5, Decalcification Patient: Matty Garces [id number] (Continued) Specimen: [id number] Received: 01/03/24 (Continued) CPT Codes 73710 Specimen: [id number] Received: 01/03/24 Status: GIOVANNI Jacinto Num: [id number] Spec Type: Surgical Subm Dr: Trey Vallejo,DPM, MS Tissues: A Bone Fragments - Pathologic Fracture (PROXIMAL PHALANX RIGHT HALLU) Procedures: HE/2, Gross/Micro L5, Decalcification Patient: Matty Garces [id number] (Continued) Signed (signature on file) Viral Rae MD 01/06/241837 Normal [facility] XR cervical spine 5V*on 02-12 XR cervical spine 5V* [facility] [place] [place] [address] XRay Report Signed Patient: Matty Garces MR#: [id number] 97 : 1970 Acct:[id number] Age/Sex: 52 / M ADM Date: 03/11/23 Loc: ICXD Room: Type: [facility] Attending Dr: Rubén Geiger MD Copies [...] Crow Contreras M.D.03/11/2023 3:48 PM Dictation Location: [place] [address] Transcribed By: [facility] 03/11/23 1548 Dictated By: Crow Contreras DO 03/11/23 1544 Signed By: 03/11/23 1548 Normal [facility] Physician [facility] CT CSPINE WO CONon CT [...] by: ANGEL JORDAN Date: 2022-12-06 06:37 Normal [facility] CT FACIAL BONES WO CONon CT FACIAL [...] ANGEL JORDAN Date: 2022-12-06 06:41 Normal [facility] CT HEAD WO CONon 12-06-2022 CT HEAD [...] ANGEL JORDAN Date: 2022-12-06 06:39 Normal [facility] XR ELBOW RT MIN 3 VIEWSon XR ELBOW RT MIN 3 VIEWS Exam: Radiographs: XR ELBOW RT MIN 3 VIEWS Reason for exam: Elbow pain Comparison: None IMPRESSION: Right elbow degenerative changes. Olecranon spur. Remainder of the right elbow is unremarkable. Electronically authenticated by: MICHAEL CASANOVA Date: 2022-12-06 07:22 Normal [facility] XR FOREARM RT 2Von 3 XR FOREARM RT 2V Exam: Radiographs: XR FOREARM RT 2V Reason for exam: Forearm pain Comparison: None IMPRESSION: Mild degenerative changes in the right elbow and wrist. Right forearm is otherwise unremarkable. Electronically authenticated by: MICHAEL CASANOVA Date: 2022-12-06 08:07 Normal [facility] PSA, FREE AND TOTAL RATIOon 12-03-2022 % Free PSA 9.0 % Normal [facility] Comment on above: Result Comment: The table [...] By: #### P SAFREE #### [facility] [address] [place] [address] [address] Shabnam Rae Prostate specific Ag [Mass/Vol] 5.9 ng/mL Critically high 0.0-4.0 [facility] Comment on above: Result Comment: Roch e ECLIA methodology. . According to the [employer], Serum PSA should decrease and [...] By: #### P SAFREE #### [facility] [address] [place] [address] [address] Shabnam Rae PSA, Free 0.53 ng/mL Normal N/A [facility] Comment on above: Result Comment: Roch e ECLIA methodology. Performed By: #### P SAFREE #### [facility] [address], [place] [address] Dr. Shabnam Rae INSULINon 12-02-2022 Insulin 20.2 uIU/mL Normal 2.6-24.9 [facility] Comment on above: Performed By: #### P SASC #### [facility] [address], [place] [address] Dr. Shabnam Rae TESTOSTERONE, TOTALon 2022 Testosterone [Mass/Vol] 256 ng/dL Critically low 264-916 [facility] Comment on above: Result Comment: Adul t male reference interval is based on a population of healthy nonobese males (BMI <30) between 19 and 39 years old. adia Ch.al. JCEM 2017,102;3056-6783. PMID: [id number]. Performed By: #### P SASC #### [facility] [address] [place] [address] Dr. Shabnam Rae CBC AUTO DIFFon 12-01-2022 BASO # 0.1 103/ul Normal 0.0-0.1 [facility] Comment on above: Performed By: #### P SASC #### [facility] [address] [place] [address] Dr. Shabnam Rae Basophils/100 WBC (Bld) 1.0 % Normal 0.2-2.0 [facility] Comment on above: Performed By: #### P SASC #### [facility] [address] [place] [address] Dr. Shabnam Rae EO # 0.1 103/ul Normal 0.0-0.7 [facility] Comment on above: Performed By: #### P SASC #### [facility] [address] [place] [address] Dr. Shabnam Rae Eosinophils/100 WBC (Bld) 1.8 % Normal 0.9-7.0 [facility] Comment on above: Performed By: #### P SASC #### [facility] [address] [place] [address] Dr. Shabnam Rae Erythrocyte distribution width (RBC) [Ratio] 14.8 % Normal 11.0-15.0 [facility] Comment on above: Performed By: #### P SASC #### [facility] [address] [place] [address] Dr. Shabnam Rae Hematocrit (Bld) [Volume fraction] 49.9 % Normal 42.0-54.0 [facility] Comment on above: Performed By: #### P SASC #### [facility] [address] [place] [address] Dr. Shabnam Rae Hemoglobin (Bld) [Mass/Vol] 16.0 g/dL Normal 14.0-18.0 [facility] Comment on above: Performed By: #### P SASC #### [facility] [address] [place] [address] [address] Shabnam Rae IG # 0.04 10e3/ul Critically high 0.00-0.03 [facility] Comment on above: Performed By: #### P SASC #### [facility] [address] [place] [address] [address] Shabnam Rae IG % 0.6 % Critically high 0.0-0.5 [facility] Comment on above: Performed By: #### P SASC #### [facility] [address] [place] [address] Dr. Shabnam Rae LYMPH # 1.0 103/ul Critically low 1.2-3.8 [facility] Comment on above: Performed By: #### P SASC #### [facility] [address] [place] [address] Dr. Shabnam Rae Lymphocytes/100 WBC (Bld) 16.2 % Critically low 20.5-60.0 [facility] Comment on above: Performed By: #### P SASC #### [facility] [address] [place] [address] Dr. Shabnam Rae MANUAL DIFF REQ NO Normal [facility] Comment on above: Performed By: #### P SASC #### [facility] [address] [place] [address] Dr. Shabnam Rae MCH (RBC) [Entitic mass] 27.7 pg Normal 25.9-34.0 [facility] Comment on above: Performed By: #### P SASC #### [facility] [address] [place] [address] Dr. Shabnam Rae MCHC (RBC) [Mass/Vol] 32.1 g/dL Normal 29.9-35.2 [facility] Comment on above: Performed By: #### P SASC #### [facility] [address] [place] [address] Dr. Shabnam Rae MCV (RBC) [Entitic vol] 86.3 fL Normal 80.0-94.0 [facility] Comment on above: Performed By: #### P SASC #### [facility] [address] [place] [address] [address] Shabnam Rae MONO # 0.5 103/ul Normal 0.3-0.8 [facility] Comment on above: Performed By: #### P SASC #### [facility] [address] [place] [address] Dr. Shabnam Rae Monocytes/100 WBC (Bld) 7.6 % Normal 1.7-12.0 [facility] Comment on above: Performed By: #### P SASC #### [facility] [address] [place] [address] Dr. Shabnam Rae NEUT # 4.6 103/ul Normal 1.4-6.5 [facility] Comment on above: Performed By: #### P SASC #### [facility] [address] [place] [address] Dr. Shabnam Rae Neutrophils/100 WBC (Bld) 72.8 % Normal 43.0-75.0 [facility] Comment on above: Performed By: #### P SASC #### [facility] [address] [place] [address] Dr. Shabnam Rae Platelet mean volume (Bld) [Entitic vol] 9.8 fL Normal 9.5-13.5 [facility] Comment on above: Performed By: #### P SASC #### [facility] [address] [place] [address] Dr. Shabnam Rae PLT 203 103/ul Normal 150-450 [facility] Comment on above: Performed By: #### P SASC #### [facility] [address] [place] [address] Dr. Shabnam Rae RBC 5.78 106/ul Normal 4.70-6.10 [facility] Comment on above: Performed By: #### P SASC #### [facility] [address] [place] [address] Dr. Shabnam Rae WBC 6.3 103/ul Normal 4.0-11.0 [facility] Comment on above: Performed By: #### P SASC #### [facility] [address] [place] [address] [address] Shabnam Rae FREE THYROXINE INDEX T7on FTI 2.05 Normal 1.30-4.50 [facility] Comment on above: Performed By: #### T SH, CMP, LIPID, T7, URIC #### [facility] [address] [place] [address] [address] Shabnam Rae T3U 33.0 % Normal 33.0-40.0 [facility] Comment on above: Performed By: #### T SH, CMP, LIPID, T7, URIC #### [facility] [address] [place] [address] [address] Shabnam Rae T4 [Mass/Vol] 6.20 ug/dL Normal 4.50-12.10 [facility] Comment on above: Performed By: #### T SH, CMP, LIPID, T7, URIC #### [facility] [address] [place] [address] Dr. Shabnam Rae GLYCOHEMOGLOBIN A1Con 2022 ADA RECOMMENDATION SEE BELOW Normal [facility] Comment on above: Result Comment: ADA RECOMMENDED LIMIT 4.0 - 6.0 ADA THERAPEUTIC TARGET < 7.0 ACTION SUGGESTED > 7.0 Performed By: #### P SASC #### [facility] [address] [place] [address] Dr. Shabnam Rae Glucose [Mass/Vol] 114 mg/dL Normal [facility] Comment on above: Performed By: #### P SASC #### [facility] [address] [place] [address] Dr. Shabnam Rae HbA1c (Bld) [Mass fraction] 5.6 % Normal 4.5-6.2 [facility] Comment on above: Performed By: #### P SASC #### [facility] [address] [place] [address] Dr. Shabnam Rae LIPID PROFILEon 12-01-2022 CHOL-HDL RATIO NORM SEE BELOW Normal [facility] Comment on above: Result Comment: 3.3 - 4.4 LOW RISK 4.4 - 7.1 AVERAGE RISK 7.1 - 11.0 MODERATE RISK >11.0 HIGH RISK Performed By: #### T SH, CMP, LIPID, T7, URIC #### [facility] [address] [place] [address] [address] Shabnam Rae Cholesterol [Mass/Vol] 176 mg/dL Normal <=200 [facility] Comment on above: Performed By: #### T SH, CMP, LIPID, T7, URIC #### [facility] [address] [address] [address] Shabnam Rae Cholesterol in HDL [Mass/Vol] 48 mg/dL Normal 40-60 [facility] Comment on above: Performed By: #### T SH, CMP, LIPID, T7, URIC #### [facility] [address] [place] [address] [address] Shabnam Rae Cholesterol in LDL [Mass/Vol] 108.2 mg/dL Normal [facility] Comment on above: Performed By: #### T SH, CMP, LIPID, T7, URIC #### [facility] [address] [address] [address] Shabnam Rae Cholesterol.total/Ch olesterol in HDL [Mass ratio] 3.7 {ratio} Normal [facility] Comment on above: Performed By: #### T SH, CMP, LIPID, T7, URIC #### [facility] [address] [address] [address] Shabnam Rae HDL NORMAL > or = 60 mg/dl - LOW CARDIOVASCULAR RISK <40 mg/dl - HIGH CARDIOVASCULAR RISK Normal [facility] Comment on above: Performed By: #### T SH, CMP, LIPID, T7, URIC #### [facility] [address] [address] [address] Shabnam Rae LDL CALC NORMAL SEE BELOW Normal [facility] Comment on above: Result Comment: <100 mg/dl OPTIMAL 100 - 129 mg/dl NEAR OR ABOVE OPTIMAL 130 - 159 mg/dl BORDERLINE HIGH 160 - 189 mg/dl HIGH >190 mg/dl VERY HIGH Performed By: #### T SH, CMP, LIPID, T7, URIC #### [facility] [address] [address] [address] Shabnam Rae Triglyceride [Mass/Vol] 99 mg/dL Normal <=150 [facility] Comment on above: Performed By: #### T SH, CMP, LIPID, T7, URIC #### [facility] [address] [address] [address] Shabnam Rae VLDL CALC 19.8 mg/dL Normal [facility] Comment on above: Performed By: #### T SH, CMP, LIPID, T7, URIC #### [facility] [address] [place] [address] Dr. Shabnam Rae PROF 14(COMP METB)on 023 Albumin [Mass/Vol] 4.1 g/dL Normal 3.4-5.0 [facility] Comment on above: Performed By: #### T SH, CMP, LIPID, T7, URIC #### [facility] [address] [place] [address] Dr. Shabnam Rae Albumin/Globulin [Mass ratio] 1.1 {ratio} Normal [facility] Comment on above: Performed By: #### T SH, CMP, LIPID, T7, URIC #### [facility] [address] [place] [address] Dr. Shabnam Rae ALP [Catalytic activity/Vol] 101 U/L Normal 46-116 [facility] Comment on above: Performed By: #### T SH, CMP, LIPID, T7, URIC #### [facility] [address] [place] [address] Dr. Shabnam Rae ALT [Catalytic activity/Vol] 26 U/L Normal 16-63 [facility] Comment on above: Performed By: #### T SH, CMP, LIPID, T7, URIC #### [facility] [address] [place] [address] Dr. Shabnam Rae Anion gap [Moles/Vol] 10.1 mmol/L Normal [facility] Comment on above: Performed By: #### T SH, CMP, LIPID, T7, URIC #### [facility] [address] [place] [address] Dr. Shabnam Rae AST [Catalytic activity/Vol] 19 U/L Normal 15-37 [facility] Comment on above: Performed By: #### T SH, CMP, LIPID, T7, URIC #### [facility] [address] [address] [address] Shabnam Rae Bilirubin [Mass/Vol] 0.8 mg/dL Normal 0.2-1.0 [facility] Comment on above: Performed By: #### T SH, CMP, LIPID, T7, URIC #### [facility] [address] [address] [address] Shabnam Rae Calcium [Mass/Vol] 9.5 mg/dL Normal 8.5-10.1 [facility] Comment on above: Performed By: #### T SH, CMP, LIPID, T7, URIC #### [facility] [address] [place] [address] Dr. Shabnam Rae Chloride [Moles/Vol] 102 mmol/L Normal 98-107 [facility] Comment on above: Performed By: #### T SH, CMP, LIPID, T7, URIC #### [facility] [address] [place] [address] Dr. Shabnam Rae CO2 [Moles/Vol] 32.4 mmol/L Critically high 21.0-32.0 [facility] Comment on above: Performed By: #### T SH, CMP, LIPID, T7, URIC #### [facility] [address] [place] [address] Dr. Shabnam Rae Creatinine [Mass/Vol] 1.00 mg/dL Normal 0.70-1.30 [facility] Comment on above: Performed By: #### T SH, CMP, LIPID, T7, URIC #### [facility] [address] [place] [address] Dr. Shabnam Rae EGFR-AF KYRGYZ >60 Normal >=60 [facility] [place] [facility] Comment on above: Performed By: #### T SH, CMP, LIPID, T7, URIC #### [facility] [address] [place] [address] Dr. Shabnam Rae EGFR-NON AF KYRGYZ >60 Normal >=60 [facility] Comment on above: Performed By: #### T SH, CMP, LIPID, T7, URIC #### [facility] [address] [address] [address] Shabnam aRe Globulin (S) [Mass/Vol] 3.8 g/dL Normal [facility] Comment on above: Performed By: #### T SH, CMP, LIPID, T7, URIC #### [facility] [address] [place] [address] Dr. Shabnam Rae Glucose [Mass/Vol] 94 mg/dL Normal 74-106 [facility] Comment on above: Performed By: #### T SH, CMP, LIPID, T7, URIC #### [facility] [address] [place] [address] Dr. Shabnam Rae Potassium [Moles/Vol] 3.5 mmol/L Normal 3.5-5.1 [facility] Comment on above: Performed By: #### T SH, CMP, LIPID, T7, URIC #### [facility] [address] [place] [address] Dr. Shabnam Rae Protein [Mass/Vol] 7.9 g/dL Normal 6.4-8.2 [facility] Comment on above: Performed By: #### T SH, CMP, LIPID, T7, URIC #### [facility] [address] [place] [address] Dr. Shabnam Rae Sodium [Moles/Vol] 141 mmol/L Normal 136-145 [facility] Comment on above: Performed By: #### T SH, CMP, LIPID, T7, URIC #### [facility] [address] [place] [address] Dr. Shabnam Rae Urea nitrogen [Mass/Vol] 15.0 mg/dL Normal 7.0-18.0 [facility] Comment on above: Performed By: #### T SH, CMP, LIPID, T7, URIC #### [facility] [address] [place] [address] Dr. Shabnam Rae Urea nitrogen/Creatinine [Mass ratio] 15.0 mg/mg Normal [facility] Comment on above: Performed By: #### T SH, CMP, LIPID, T7, URIC #### [facility] [address] [place] [address] Dr. Shabnam Rae TSHon 12-01-2022 TSH 1.504 uIU/mL Normal 0.358-3.740 [facility] Comment on above: Performed By: #### T SH, CMP, LIPID, T7, URIC #### [facility] [address] [place] [address] Dr. Shabnam Rae URIC ACID SERUMon 12-01-2022 Urate [Mass/Vol] 6.9 mg/dL Normal 3.5-7.2 [facility] [place] [facility] Comment on above: Performed By: #### T SH, CMP, LIPID, T7, URIC #### [facility] [address] [place] [address] Dr. Shabnam Rae TESTOSTERONE, TOTALon 2021 Testosterone [Mass/Vol] 244 ng/dL Critically low 264-916 [facility] Comment on above: Result Comment: Adul t male reference interval is based on a population of healthy nonobese males (BMI <30) between 19 and 39 years old. Travison, et.al. JCEM 2017,102;0125-7412. PMID: [id number]. Performed By: #### P SAFREE #### [facility] [address] [place] [address] Dr. Shabnam Rae TESTOSTERONE, FREE,DIRECT, T OTALon 03-16-2022 Free Testosterone(Direct) 2.1 pg/mL Critically low 7.2-24.0 [facility] Comment on above: Result Comment: Perf ormed at: BN Performed By: #### C VDTBH #### [facility] [address] [place] [address] Dr. Shabnam Rae Testosterone [Mass/Vol] 252 ng/dL Critically low 264-916 [facility] Comment on above: Result Comment: Adul t male reference interval is based on a population of healthy nonobese males (BMI <30) between 19 and 39 years old. Travison, et.al. JCEM 2017,102;3949-4893. PMID: [id number]. Performed at: CB Performed By: #### C VDTBH #### [facility] [address], [place] [address] Dr. Shabnam Rae Formson 02-26-2022 Forms [id number] 7#1.00CD:127 Normal [facility] 02-26-2022 Screens [id number] 7#1.00CD:127 Normal [facility] Screens [id number] #1.00CD:127 Normal [facility] Urology Office/Clinic Noteon 02-26-2022 Urology Office/Clinic [...] qualifying data (more content not included)... Normal [facility] Comment on above: Result Comment: Elec tronically Signed By: Viola Grullon MD\.br\Date and Time Signed: 02/26/22 00:20 EDT\.br\Electronically Co-Signed By: Helen Leung\.br\Date and Time Co-Signed: 02/25/22 11:16 EDT Ambulatory Visit Summaryon 0 02-25-2022 Ambulatory Visit Summary MATTY GARCES :1970 Visit Date:02/25/2022 Ambulatory Visit Instructions Your Diagnosis Hydrocele Varicocele BPH without urinary obstruction Tests Performed Urnls Dip Stick Auto w/o Microscopy POC 35343 Your Care Team Attending Physician - Viola [...] Urnls Dip Stick Auto w/o Microscopy POC 01038 (02/25/2022) Bilirubin Urine Dipstick - Negative Blood Urine Dipstick - Negative Glucose Urine Dipstick - Negative Ketones Urine Dipstick - Negative Leukocytes Urine Dipstick - Negative Nitrite Urine Dipstick - Negative Protein Urine Dipstick - Negative Specific [place] Urine Dipstick - >=1.030 Urine Appearance Urine [...] the hydrocele for any changes. ? Take wofi-mwf-wpmmllk and prescription medicines only as told by [...] intended t (more content not included)... Normal [facility] Patient Educationon 02-26-20 Patient Education Urology [...] the hydrocele for any changes. ? Take bvzh-tbi-pkvfjcn and prescription medicines only as told by [...] 02/17/2011 Document Revised: 09/10/2018 Document Reviewed: 09/10/2018 [employer] Patient Education ? 2019 [employer] Normal [facility] ED Note-Physicianon 02-04-20 22 ED Note-Physician [id number]#[id number]:127 Normal [facility] RAD - Ultrasound Reporton RAD - Ultrasound Report [id number] #1.00CD:127 Normal [facility] RAD - CT Reporton 02-02-2022 RAD - CT Report [id number]#1.00CD:127 Normal [facility] RAD - CT Report [id number]#[id number]:127 Normal [facility] CBC AUTO DIFFon 01-05-2022 BASO # 0.0 103/ul Normal 0.0-0.1 [facility] Comment on above: Performed By: #### P SAFREE #### [facility] [address] [address] [address] Shabnam Rae Basophils/100 WBC (Bld) 0.6 % Normal 0.2-2.0 [facility] Comment on above: Performed By: #### P SAFREE #### [facility] [address] [place] [address] Dr. Shabnam Rae EO # 0.1 103/ul Normal 0.0-0.7 [facility] Comment on above: Performed By: #### P SAFREE #### [facility] [address] [place] [address] Dr. Shabnam Rae Eosinophils/100 WBC (Bld) 2.1 % Normal 0.9-7.0 [facility] Comment on above: Performed By: #### P SAFREE #### [facility] [address] [place] [address] Dr. Shabnam Rae Erythrocyte distribution width (RBC) [Ratio] 13.1 % Normal 11.0-15.0 [facility] Comment on above: Performed By: #### P SAFREE #### [facility] [address] [place] [address] Dr. Shabnam Rae Hematocrit (Bld) [Volume fraction] 43.1 % Normal 42.0-54.0 [facility] Comment on above: Performed By: #### P SAFREE #### [facility] [address] [place] [address] Dr. Shabnam Rae Hemoglobin (Bld) [Mass/Vol] 13.7 g/dL Critically low 14.0-18.0 [facility] Comment on above: Performed By: #### P SAFREE #### [facility] [address] [address] [address] Shabnam Rae IG # 0.04 10e3/ul Critically high 0.00-0.03 [facility] Comment on above: Performed By: #### P SAFREE #### [facility] [address] [address] [address] Shabnam Rae IG % 0.6 % Critically high 0.0-0.5 [facility] Comment on above: Performed By: #### P SAFREE #### [facility] [address] [address] [address] Shabnam Rae LYMPH # 0.9 103/ul Critically low 1.2-3.8 [facility] Comment on above: Performed By: #### P SAFREE #### [facility] [address] [place] [address] Dr. Shabnam Rae Lymphocytes/100 WBC (Bld) 13.1 % Critically low 20.5-60.0 [facility] Comment on above: Performed By: #### P SAFREE #### [facility] [address] [address] [address] Shabnam Rae MANUAL DIFF REQ NO Normal [facility] Comment on above: Performed By: #### P SAFREE #### [facility] [address] [place] [address] Dr. Shabnam Rae MCH (RBC) [Entitic mass] 29.5 pg Normal 25.9-34.0 [facility] Comment on above: Performed By: #### P SAFREE #### [facility] [address] [address] [address] Shabnam Rae MCHC (RBC) [Mass/Vol] 31.8 g/dL Normal 29.9-35.2 [facility] Comment on above: Performed By: #### P SAFREE #### [facility] [address] [place] [address] Dr. Shabnam Rae MCV (RBC) [Entitic vol] 92.9 fL Normal 80.0-94.0 [facility] Comment on above: Performed By: #### P SAFREE #### [facility] [address] [address] [address] Shabnam Rae MONO # 0.4 103/ul Normal 0.3-0.8 [facility] Comment on above: Performed By: #### P SAFREE #### [facility] [address] [address] [address] Shabnam Rae Monocytes/100 WBC (Bld) 5.4 % Normal 1.7-12.0 [facility] Comment on above: Performed By: #### P SAFREE #### [facility] [address] [address] [address] Shabnam Rae NEUT # 5.2 103/ul Normal 1.4-6.5 [facility] Comment on above: Performed By: #### P SAFREE #### [facility] [address] [place] [address] Dr. Shabnam Rae Neutrophils/100 WBC (Bld) 78.2 % Critically high 43.0-75.0 [facility] Comment on above: Performed By: #### P SAFREE #### [facility] [address] [place] [address] Dr. Shabnam Rae Platelet mean volume (Bld) [Entitic vol] 10.9 fL Normal 9.5-13.5 [facility] Comment on above: Performed By: #### P SAFREE #### [facility] [address] [place] [address] Dr. Shabnam Rae PLT 153 103/ul Normal 150-450 [facility] Comment on above: Performed By: #### P SAFREE #### [facility] [address] [place] [address] Dr. Shabnam Rae RBC 4.64 106/ul Critically low 4.70-6.10 [facility] Comment on above: Performed By: #### P SAFREE #### [facility] [address] [address] [address] Shabnam Rae WBC 6.6 103/ul Normal 4.0-11.0 [facility] Comment on above: Performed By: #### P SAFREE #### [facility] [address] [place] [address] Dr. Shabnam Rae CRPon 01-05-2022 CRP 0.9 mg/dL Normal <=1.0 [facility] Comment on above: Performed By: #### P SAFREE #### [facility] [address] [place] [address] Dr. Shabnam Rae PROF 14(COMP METB)on 022 Albumin [Mass/Vol] 3.6 g/dL Normal 3.4-5.0 [facility] Comment on above: Performed By: #### P SAFREE #### [facility] [address] [place] [address] Dr. Shabnam Rae Albumin/Globulin [Mass ratio] 1.0 {ratio} Normal [facility] Comment on above: Performed By: #### P SAFREE #### [facility] [address] [place] [address] Dr. Shabnam Rae ALP [Catalytic activity/Vol] 114 U/L Normal 46-116 [facility] Comment on above: Performed By: #### P SAFREE #### [facility] [address] [place] [address] Dr. Shabnam Rae ALT [Catalytic activity/Vol] 26 U/L Normal 16-63 [facility] Comment on above: Performed By: #### P SAFREE #### [facility] [address] [place] [address] Dr. Shabnam Rae Anion gap [Moles/Vol] 9.3 mmol/L Normal [facility] Comment on above: Performed By: #### P SAFREE #### [facility] [address] [place] [address] Dr. Shabnam Rae AST [Catalytic activity/Vol] 19 U/L Normal 15-37 [facility] Comment on above: Performed By: #### P SAFREE #### [facility] [address] [place] [address] Dr. Shabnam Rae Bilirubin [Mass/Vol] 0.5 mg/dL Normal 0.2-1.0 [facility] Comment on above: Performed By: #### P SAFREE #### [facility] [address] [place], [place] [id number] Dr. Shabnam Rae Calcium [Mass/Vol] 8.9 mg/dL Normal 8.5-10.1 [facility] Comment on above: Performed By: #### P SAFREE #### [facility] [address] [place] [address] Dr. Shabnam Rae Chloride [Moles/Vol] 106 mmol/L Normal 98-107 [facility] Comment on above: Performed By: #### P SAFREE #### [facility] [address] [place] [address] Dr. Shabnam Rae CO2 [Moles/Vol] 30.7 mmol/L Normal 21.0-32.0 [facility] Comment on above: Performed By: #### P SAFREE #### [facility] [address] [place] [address] Dr. Shabnam Rae Creatinine [Mass/Vol] 1.15 mg/dL Normal 0.70-1.30 [facility] Comment on above: Performed By: #### P SAFREE #### [facility] [address] [place] [address] Dr. Shabnam Rae EGFR-AF KYRGYZ >60 Normal >=60 [facility] Comment on above: Performed By: #### P SAFREE #### [facility] [address] [place] [address] Dr. Shabnam Rae EGFR-NON AF KYRGYZ >60 Normal >=60 [facility] Comment on above: Performed By: #### P SAFREE #### [facility] [address] [place] [address] Dr. Shabnam Rae Globulin (S) [Mass/Vol] 3.6 g/dL Normal [facility] Comment on above: Performed By: #### P SAFREE #### [facility] [address] [place] [address] Dr. Shabnam Rae Glucose [Mass/Vol] 117 mg/dL Critically high 74-106 [facility] Comment on above: Performed By: #### P SAFREE #### [facility] [address] [place] [address] Dr. Shabnam Rae Potassium [Moles/Vol] 4.0 mmol/L Normal 3.5-5.1 [facility] Comment on above: Performed By: #### P SAFREE #### [facility] [address] [address] [address] Shabnam Rae Protein [Mass/Vol] 7.2 g/dL Normal 6.1-8.2 [facility] Comment on above: Performed By: #### P SAFREE #### [facility] [address] [place] [address] Dr. Shabnam Rae Sodium [Moles/Vol] 142 mmol/L Normal 136-145 [facility] Comment on above: Performed By: #### P SAFREE #### [facility] [address] [place] [address] Dr. Shabnam Rae Urea nitrogen [Mass/Vol] 15.0 mg/dL Normal 7.0-18.0 [facility] Comment on above: Performed By: #### P SAFREE #### [facility] [address] [place] [address] Dr. Shabnam Rae Urea nitrogen/Creatinine [Mass ratio] 13.0 mg/mg Normal [facility] Comment on above: Performed By: #### P SAFREE #### [facility] [address] [place] [address] Dr. Shabnam Rae US SCROTUMon 01-05-2022 US [...] Date: 2022-01-05 08:48 Normal [facility] CBC AUTO DIFFon 01-04-2022 BASO # 0.1 103/ul Normal 0.0-0.1 [facility] Comment on above: Performed By: #### C BC #### [facility] [address] [place] [address] Dr. Shabnam Rae Basophils/100 WBC (Bld) 0.8 % Normal 0.2-2.0 [facility] Comment on above: Performed By: #### C BC #### [facility] [address] [place] [address] Dr. Shabnam Rae EO # 0.1 103/ul Normal 0.0-0.7 [facility] Comment on above: Performed By: #### C BC #### [facility] [address] [place] [address] Dr. Shabnam Rae Eosinophils/100 WBC (Bld) 1.5 % Normal 0.9-7.0 [facility] Comment on above: Performed By: #### C BC #### [facility] [address] [place] [address] Dr. Shabnam Rae Erythrocyte distribution width (RBC) [Ratio] 12.8 % Normal 11.0-15.0 [facility] Comment on above: Performed By: #### C BC #### [facility] [address] [place] [address] Dr. Shabnam Rae Hematocrit (Bld) [Volume fraction] 40.3 % Critically low 42.0-54.0 [facility] Comment on above: Performed By: #### C BC #### [facility] [address] [place] [address] Dr. Shabnam Rae Hemoglobin (Bld) [Mass/Vol] 13.4 g/dL Critically low 14.0-18.0 [facility] Comment on above: Performed By: #### C BC #### [facility] [address] [place] [address] Dr. Shabnam Rae IG # 0.03 10e3/ul Normal 0.00-0.03 [facility] Comment on above: Performed By: #### C BC #### [facility] [address] [place] [address] Dr. Shabnam Rae IG % 0.5 % Normal 0.0-0.5 [facility] Comment on above: Performed By: #### C BC #### [facility] [address] [place] [address] Dr. Shabnam Rae LYMPH # 1.0 103/ul Critically low 1.2-3.8 [facility] Comment on above: Performed By: #### C BC #### [facility] [address] [place] [address] Dr. Shabnam Rae Lymphocytes/100 WBC (Bld) 16.4 % Critically low 20.5-60.0 [facility] Comment on above: Performed By: #### C BC #### [facility] [address] [place] [address] Dr. Shabnam Rae MANUAL DIFF REQ NO Normal [facility] Comment on above: Performed By: #### C BC #### [facility] [address] [place] [address] Dr. Shabnam Rae MCH (RBC) [Entitic mass] 29.5 pg Normal 25.9-34.0 [facility] Comment on above: Performed By: #### C BC #### [facility] [address] [place] [address] Dr. Shabnam Rae MCHC (RBC) [Mass/Vol] 33.3 g/dL Normal 29.9-35.2 [facility] Comment on above: Performed By: #### C BC #### [facility] [address] [place] [address] Dr. Shabnam Rae MCV (RBC) [Entitic vol] 88.8 fL Normal 80.0-94.0 [facility] Comment on above: Performed By: #### C BC #### [facility] [address] [place] [address] Dr. Shabnam Rae MONO # 0.6 103/ul Normal 0.3-0.8 [facility] Comment on above: Performed By: #### C BC #### [facility] [address] [place] [address] Dr. Shabnam Rae Monocytes/100 WBC (Bld) 9.6 % Normal 1.7-12.0 [facility] Comment on above: Performed By: #### C BC #### [facility] [address] [place] [address] Dr. Shabnam Rae NEUT # 4.4 103/ul Normal 1.4-6.5 [facility] Comment on above: Performed By: #### C BC #### [facility] [address] [place] [address] Dr. Shabnam Rae Neutrophils/100 WBC (Bld) 71.2 % Normal 43.0-75.0 [facility] Comment on above: Performed By: #### C BC #### [facility] [address] [place] [address] Dr. Shabnam Rae Platelet mean volume (Bld) [Entitic vol] 10.8 fL Normal 9.5-13.5 [facility] Comment on above: Performed By: #### C BC #### [facility] [address] [place] [address] Dr. Shabnam Rae PLT 158 103/ul Normal 150-450 [facility] Comment on above: Performed By: #### C BC #### [facility] [address] [place], [place] [id number] Dr. Shabnam Rae RBC 4.54 106/ul Critically low 4.70-6.10 [facility] Comment on above: Performed By: #### C BC #### [facility] [address] [place] [address] Dr. Shabnam Rae WBC 6.2 103/ul Normal 4.0-11.0 [facility] Comment on above: Performed By: #### C #### [facility] [address] [address] [address] ABD/PELV W CONon [...] Date: 2022-01-04 05:19 Normal [facility] CT PELVIS WO CONon 2 CT PELVIS [...] Date: 2022-01-04 08:54 Normal [facility] CULTURE URINEon 01-04-2022 CULTURE URINE Culture Observations: No growth Normal [facility] Comment on above: Performed By: #### P [facility] #### [facility] [address] [place] [address] Dr. Shabnam Rae Covid-19 PCR ([facility])on 12-13 SARS-CoV-2 (COVID-19) RNA ELIJAH+probe Ql (Unsp spec) Not detected Normal NOT DETECTED [facility] Comment on above: Result Comment: When diagnostic testing is negative, the possibility of a false negative should be considered in the context of a patient's recent exposures and the presence of clinical signs and symptoms consistent with SARS-CoV-2. This test is not yet approved or cleared by the [place] Food and Drug Administration (FDA). This test was developed by [employer], [place], [place]. The performance characteristics of this test were validated by [facility]. The results are not intended to be used as the sole means for clinical diagnosis or patient management decisions. [facility] is authorized under Clinical Laboratory Improvement Amendments [...] for this test is supported by the [place] of Health and Human Service's declaration that [...] By: #### C VDTBH #### [facility] [address] [place] [address] Dr. Shabnam Rae ER URINE PROFILEon 2 Bilirubin Ql (U) Negative Normal NEGATIVE [facility] Comment on above: Performed By: #### P SASC #### [facility] [address] [place] [address] Dr. Shabnam Rae Clarity (U) CLEAR Normal CLEAR [facility] Comment on above: Performed By: #### P SASC #### [facility] [address] [place] [address] Dr. Shabnam Rae Color (U) YELLOW Normal YELLOW [facility] Comment on above: Performed By: #### P SASC #### [facility] [address] [place] [address] Dr. Shabnam Rae ERUAHD A micrscopic examination will be performed if indicated. Normal [facility] Comment on above: Performed By: #### P SASC #### [facility] [address] [address] [address] Shabnam aRe Glucose Ql (U) Negative Normal NEGATIVE [facility] Comment on above: Performed By: #### P SASC #### [facility] [address] [address] [address] Shabnam Rae Hemoglobin Ql (U) Negative Normal NEGATIVE [facility] Comment on above: Performed By: #### P SASC #### [facility] [address] [address] [address] Shabnam Rae Ketones Ql (U) Negative Normal NEGATIVE [facility] Comment on above: Performed By: #### P SASC #### [facility] [address] [address] [address] Shabnam Rae LEUKOCYTES Negative Normal NEGATIVE [facility] Comment on above: Performed By: #### P SASC #### [facility] [address] [address] [address] Shabnam Rae Nitrite Ql (U) Negative Normal NEGATIVE [facility] Comment on above: Performed By: #### P SASC #### [facility] [address] [address] [address] Shabnam Rae pH (U) 6.5 [pH] Normal 5-9 [facility] Comment on above: Performed By: #### P SASC #### [facility] [address] [place] [address] Dr. Shabnam Rae SPEC GRAVITY 1.010 Normal 1.005-<=1.025 [facility] Comment on above: Performed By: #### P SASC #### [facility] [address] [place] [address] Dr. Shabnam Rae UA PROTEIN Negative Normal NEGATIVE/ TRACE [facility] Comment on above: Performed By: #### P SASC #### [facility] [address] [place] [address] Dr. Shabnam Rae UR MICRO IND NOT INDICATED Normal [facility] Comment on above: Performed By: #### P SASC #### [facility] [address] [place] [address] Dr. Shabnam Rae Urobilinogen Qn (U) 0.2 {Sarai'U}/dL Normal 0.2 - 1. 0 [facility] Comment on above: Performed By: #### P SASC #### [facility] [address] [address] [address] Shabnam Rae LACTATE/LACTIC ACIDon 2021 Lactate [Moles/Vol] 1.0 mmol/L Normal 0.4-2.0 [facility] Comment on above: Performed By: #### P SASC #### [facility] [address] [address] [address] Shabnam Rae PROF CHEM 8 (BAS METB)on Anion gap [Moles/Vol] 10.0 mmol/L Normal [facility] Comment on above: Performed By: #### B MP #### [facility] [address] [place] [address] Dr. Shabnam Rae Calcium [Mass/Vol] 8.5 mg/dL Normal 8.5-10.1 [facility] Comment on above: Performed By: #### B MP #### [facility] [address] [address] [address] Shabnam Rae Chloride [Moles/Vol] 103 mmol/L Normal 98-107 [facility] Comment on above: Performed By: #### B MP #### [facility] [address] [place] [address] Dr. Shabnam Rae CO2 [Moles/Vol] 29.2 mmol/L Normal 21.0-32.0 [facility] Comment on above: Performed By: #### B MP #### [facility] [address] [place] [address] Dr. Shabnam Rae Creatinine [Mass/Vol] 1.25 mg/dL Normal 0.70-1.30 [facility] Comment on above: Performed By: #### B MP #### [facility] [address] [address] [address] Shabnam Rae EGFR-AF KYRGYZ >60 Normal >=60 [facility] Comment on above: Performed By: #### B MP #### [facility] [address] [address] [address] Shabnam Rae EGFR-NON AF KYRGYZ >60 Normal >=60 [facility] Comment on above: Performed By: #### B MP #### [facility] [address] [address] [address] Shabnam Rae Glucose [Mass/Vol] 132 mg/dL Critically high 74-106 [facility] Comment on above: Performed By: #### B MP #### [facility] [address] [address] [address] Shabnam Rae Potassium [Moles/Vol] 3.2 mmol/L Critically low 3.5-5.1 [facility] Comment on above: Performed By: #### B MP #### [facility] [address] [place] [address] Dr. Shabnam Rae Sodium [Moles/Vol] 139 mmol/L Normal 136-145 [facility] Comment on above: Performed By: #### B MP #### [facility] [address] [address] [address] Shabnam Rae Urea nitrogen [Mass/Vol] 19.0 mg/dL Critically high 7.0-18.0 [facility] Comment on above: Performed By: #### B MP #### [facility] [address] [place] [address] Dr. Shabnam Rae Urea nitrogen/Creatinine [Mass ratio] 15.2 mg/mg Normal [facility] Comment on above: Performed By: #### B MP #### [facility] [address] [place] [address] Dr. Shabnam Rae CERVICAL SPINE 2 OR 3 [facility] 07-06-2019 CERVICAL SPINE 2 OR 3 [facility] Department of Radiology [address] [place] [id number] Patient Name: MATTY GARCES : 1970 [...] findings. Electronically signed by:Bernice Hoyt. Transcribed by: [email or web address], User Resident: RADHA CHIN Electronically Signed by: BERNICE HOYT @ 07/06/2019 08:52 PM I personally read this/these film(s) with this resident Normal The [facility] [facility] Comment on above: Order Comment: , STA T READ , STAT READ , , , Ordering Provider - LUCIANO VIEIRA MD , CERVICAL SPINE 2 OR 3 [facility] 04-06-2019 CERVICAL SPINE 2 OR 3 [facility] Department of Radiology [address] [place] [id number] Patient Name: MATTY GARCES : 1970 [...] FALLS Exam: CERVICAL SPINE 2 OR 3 [facility] CERVICAL SPINE 2 OR 3 [facility] 04/06/2019 7:28 AM EDT SIGNS AND [...] study. Electronically signed by:Bernice Hoyt. Transcribed by: [email or web address], User Resident: Electronically Signed by: BERNICE HOYT @ 04/06/2019 04:40 PM Normal [facility] Comment on above: Order Comment: AP/LA T, ODONTOID PLEASE DO SWIMMER'S VIEW FOLLOW UP HARDWARE AND ALIGNMENT, S/P ACDF, RECENT FALLS CERVICAL SPINE 2 OR 3 [facility] 02-17-2019 CERVICAL SPINE 2 OR 3 [facility] Department of Radiology [address] [place] [phone] Patient Name: MATTY GARCES : 1970 [...] findings. Electronically signed by:Bella King. Transcribed by: [email or web address], User Resident: EMILE TINAJERO Electronically Signed by: BELLA KING @ 02/20/2019 11:53 AM I personally read this/these film(s) with this resident Normal The [facility] Comment on above: Order Comment: C-SPI NE 2 OR 3 VIEW POSTOP, EVALUATION HARDWARE AN ALIGNMENT BASIC METABOLIC PANELon 05-2 Calcium [Mass/Vol] 9.2 mg/dL Normal 8.6-10.3 [facility] Comment on above: Order Comment: No: D o not add to previous draw Performed By: #### 5 0103 #### [facility] [address] [place] [address], [place] Chloride [Moles/Vol] 101 mmol/L Normal 98-107 [facility] Comment on above: Order Comment: No: D o not add to previous draw Performed By: #### 5 0103 #### [facility] [address] [place] [address], [place] CO2 [Moles/Vol] 26 mmol/L Normal 21-31 [facility] Comment on above: Order Comment: No: D o not add to previous draw Performed By: #### 5 0103 #### [facility] [address] [place] [address], [place] Creatinine [Mass/Vol] 1.02 mg/dL Normal 0.70-1.30 [facility] Comment on above: Order Comment: No: D o not add to previous draw Performed By: #### 5 0103 #### [facility] [address] [place] [address], [place] GFR/1.73 sq M predicted among blacks MDRD (S/P/Bld) [Vol rate/Area] mL/min/{1.73_m2} Normal >60 The [facility] Comment on above: Order Comment: No: D o not add to previous draw Performed By: #### 5 0103 #### [facility] [address] [place] [address], [place] GFR/1.73 sq M predicted among non-blacks MDRD (S/P/Bld) [Vol rate/Area] mL/min/{1.73_m2} Normal >60 The [facility] Comment on above: Order Comment: No: D o not add to previous draw Performed By: #### 5 0103 #### [facility] [address] [place] [address], [place] Glucose [Mass/Vol] 124 mg/dL High 70-100 [facility] Comment on above: Order Comment: No: D o not add to previous draw Performed By: #### 5 0103 #### [facility] [address] [place] [address], [place] Potassium [Moles/Vol] 3.9 mmol/L Normal 3.5-5.1 The [facility] Comment on above: Order Comment: No: D o not add to previous draw Performed By: #### 5 0103 #### [facility] [address] [place] [address], [place] Sodium [Moles/Vol] 137 mmol/L Normal 136-145 [facility] Comment on above: Order Comment: No: D o not add to previous draw Performed By: #### 5 0103 #### [facility] [address] [place] [address], [facility] [[email or web address]] Urea nitrogen [Mass/Vol] 15 mg/dL Normal 7-25 The [facility] Comment on above: Order Comment: No: D o not add to previous draw Performed By: #### 5 3 #### [facility] [address] [place] [address], [facility] [[email or web address]] CBC COMPLETE BLOOD COUNTon 0 - Erythrocyte distribution width (RBC) [Ratio] 13.9 % Normal 11.5-15.0 The [facility] Comment on above: Order Comment: No: D o not add to previous draw Performed By: #### 5 0103 #### [facility] [address] [place] [address], [facility] [[email or web address]] Hematocrit (Bld) [Volume fraction] 50.0 % Normal 39.0-50.0 The [facility] Comment on above: Order Comment: No: D o not add to previous draw Performed By: #### 5 3 #### [facility] [address] [place] [id number], [facility] [[email or web address]] Hemoglobin (Bld) [Mass/Vol] 16.0 g/dL Normal 13.0-17.0 The [facility] Comment on above: Order Comment: No: D o not add to previous draw Performed By: #### 5 0103 #### [facility] [address] [place] [id number], [facility] [[email or web address]] MCH (RBC) [Entitic mass] 27.5 pg Normal 27.0-33.0 The [facility] Comment on above: Order Comment: No: D o not add to previous draw Performed By: #### 5 0103 #### [facility] [address] [place] [address], [facility] [[email or web address]] MCHC (RBC) [Mass/Vol] 32.0 g/dL Normal 32.0-35.0 [facility] Comment on above: Order Comment: No: D o not add to previous draw Performed By: #### 5 0103 #### [facility] [address] [facility] [place] [address], [facility] [[email or web address]] MCV (RBC) [Entitic vol] 85.9 fL Normal 82.0-98.0 [facility] Comment on above: Order Comment: No: D o not add to previous draw Performed By: #### 5 0103 #### [facility] [address] [facility] [place] [address], [facility] [[email or web address]] Nucleated RBC/100 WBC (Bld) [Ratio] 0 % Normal 0-0 The [facility] Comment on above: Order Comment: No: D o not add to previous draw Performed By: #### 5 0103 #### [facility] [address] [facility] [place] [address], [facility] [[email or web address]] PLAT CNT 249 10*3/uL Normal 150-400 The [facility] Comment on above: Order Comment: No: D o not add to previous draw Performed By: #### 5 3 #### [facility] [address] [place] [address], [facility] [[email or web address]] RBC (Bld) [#/Vol] 5.82 10*6/uL High 4.20-5.70 [facility] Comment on above: Order Comment: No: D o not add to previous draw Performed By: #### 5 0103 #### [facility] [address] [place] [address], [facility] [[email or web address]] WBC (Bld) [#/Vol] 15.85 10*3/uL High 4.00-10.60 The [facility] Comment on above: Order Comment: No: D o not add to previous draw Performed By: #### 5 0103 #### [facility] [address] Operative Reporton 9 Operative Report MR#: [id number] I [facility] Pt. Name: Matty Garces Room #: [id number] Discharge Date: Birthdate: 1970 OPERATIVE REPORT DATE OF SURGERY: 01/30/2019 SURGEON: Luciano Vieira M.D. 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 POSTOPERATIVE DIAGNOSIS: Failed instrumentation at C6-7 on the right. PEDIATRIC CLINICAL DIETICIAN: ADENIKE Lugo. ANESTHESIA: Endotracheal, Hogan. PROCEDURES: Redo [...] Vieira M.D. Date Trans: 01/31/2019 02:31 Eze/sasha [id number] cc: Venus Mendez M.D. [address] [facility] [phone] Normal The [facility] CERVICAL SPINE 2 OR 3 [facility] 01-30-2019 CERVICAL SPINE 2 OR 3 [facility] Department of Radiology [address] [place] [phone] Patient Name: MATTY GARCES : 1970 [...] documentation Electronically signed by:Justus Montano. Transcribed by: [email or web address], User Resident: Electronically Signed by: JUSTUS MONTANO @ 01/30/2019 04:18 PM Normal The [facility] Comment on above: Order Comment: C6-7 ACDF POC GLUCOSE LABon 01-30-2019 Glucose [Mass/Vol] 106 mg/dL High 70-100 [facility] Comment on above: Performed By: #### 5 0103 #### [facility] [address] [facility]. [address] *MRSA/MSSA DNA NASALon 01-23 *MRSA/MSSA DNA NASAL Clinical Report: (D ) Specimen: NASAL SWAB Collected: 01/23/2019 15:02 Status: Final Last Updated: 01/23/2019 20:14 MSSA DNA (Final) Methicillin Susceptible Staphylococcus aureus DNA Detected MRSA DNA (Final) No Methicillin Resistant Staphylococcus aureus DNA Detected Normal The [facility] Comment on above: Performed By: #### 5 0103 #### [facility] [address] [facility]. [address] APTTon 01-23-2019 aPTT Coag (Bld) [Time] 35.4 s High 25.0-35.0 [facility] Comment on above: Result Comment: [...] THIS PURPOSE. Performed By: #### 5 7307, 77557 #### [facility] [address] [facility]. [address] BASIC METABOLIC PANELon 01-11 Calcium [Mass/Vol] 9.5 mg/dL Normal 8.6-10.3 [facility] Comment on above: Performed By: #### 5 7307, 85158 #### [facility] [address] [facility] [place] [address], [facility] [[email or web address]] Chloride [Moles/Vol] 101 mmol/L Normal 98-107 [facility] Comment on above: Performed By: #### 5 7307, 59803 #### [facility] [address] [facility] [place] [address], [facility] [[email or web address]] CO2 [Moles/Vol] 29 mmol/L Normal 21-31 [facility] Comment on above: Performed By: #### 5 73, 87919 #### [facility] [address] [place] [address], [place] Creatinine [Mass/Vol] 1.08 mg/dL Normal 0.70-1.30 The [facility] Comment on above: Performed By: #### 5 73, 97483 #### [facility] [address] [place] [address], [place] GFR/1.73 sq M predicted among blacks MDRD (S/P/Bld) [Vol rate/Area] mL/min/{1.73_m2} Normal >60 The [facility] Comment on above: Performed By: #### 5 7306, 47327 #### [facility] [address] [place] [address], [place] GFR/1.73 sq M predicted among non-blacks MDRD (S/P/Bld) [Vol rate/Area] mL/min/{1.73_m2} Normal >60 The [facility] Comment on above: Performed By: #### 5 7306, 70089 #### [facility] [address] [place] [address], [place] Glucose [Mass/Vol] 87 mg/dL Normal 70-100 [facility] Comment on above: Performed By: #### 5 73, 70335 #### [facility] [address] [place] [address], [place] Potassium [Moles/Vol] 4.0 mmol/L Normal 3.5-5.1 The [facility] Comment on above: Performed By: #### 5 7307, 64883 #### [facility] [address] [place] [address], [place] Sodium [Moles/Vol] 137 mmol/L Normal 136-145 [facility] Comment on above: Performed By: #### 5 7307, 99526 #### [facility] [address] Urea nitrogen [Mass/Vol] 12 mg/dL Normal 7-25 The [facility] Comment on above: Performed By: #### 5 73, 05723 #### [facility] [address] CBC W/DIFFon 01-23-2019 ABS BASOPHILS 0.1 10*3/uL Normal 0.0-0.[address] [facility] Comment on above: Performed By: #### 5 Al, 78934 #### [facility] [address] ABS IMM GRANS 0.0 10*3/uL Normal 0.0-0.[address] [facility] Comment on above: Performed By: #### 5 Al, 21248 #### [facility] [address] ABS NEUTROPHILS 5.3 10*3/uL Normal 1.6-7.6 The [facility] Comment on above: Performed By: #### 5 Al, 68294 #### [facility] [address] Basophils/100 WBC (Bld) 0.9 % Normal 0.0-1.0 The [facility] Comment on above: Performed By: #### 5 Al, 86929 #### [facility] [address] Eosinophils (Bld) [#/Vol] 0.2 10*3/uL Normal 0.0-0.5 The [facility] Comment on above: Performed By: #### 5 7306, 22034 #### [facility] [address] [place] [address], [facility] [[email or web address]] Eosinophils/100 WBC (Bld) 2.3 % Normal 0.0-6.0 The [facility] Comment on above: Performed By: #### 5 7306, 70646 #### [facility] [address] Erythrocyte distribution width (RBC) [Ratio] 13.8 % Normal 11.5-15.0 The [facility] Comment on above: Performed By: #### 5 7306, 26592 #### [facility] [address] [place] [address], [facility] [[email or web address]] Hematocrit (Bld) [Volume fraction] 49.6 % Normal 39.0-50.0 The [facility] Comment on above: Performed By: #### 5 7306, 87721 #### [facility] [address] [facility] [place] [address], [facility] [[email or web address]] Hemoglobin (Bld) [Mass/Vol] 16.4 g/dL Normal 13.0-17.0 The [facility] Comment on above: Performed By: #### 5 7306, 16353 #### [facility] [address] [facility] [place] [address], [facility] [[email or web address]] IMMATURE GRANS 0.5 % Normal 0.0-1.[address] [facility] Comment on above: Performed By: #### 5 7306, 46496 #### [facility] [address] [facility] [place] [address], [facility] [[email or web address]] Lymphocytes (Bld) [#/Vol] 1.2 10*3/uL Normal 1.2-4.0 The [facility] Comment on above: Performed By: #### 5 7306, 97452 #### [facility] [address] [place] [address], [facility] [[email or web address]] Lymphocytes/100 WBC (Bld) 16.6 % Low 20.0-45.0 The [facility] Comment on above: Performed By: #### 5 7306, 70488 #### [facility] [address] [place] [address], [facility] [[email or web address]] MCH (RBC) [Entitic mass] 27.8 pg Normal 27.0-33.0 The [facility] Comment on above: Performed By: #### 5 7306, 12032 #### [facility] [address] [place] [address], [facility] [[email or web address]] MCHC (RBC) [Mass/Vol] 33.1 g/dL Normal 32.0-35.0 The [facility] Comment on above: Performed By: #### 5 7306, 20982 #### [facility] [address] [place] [address], [facility] [[email or web address]] MCV (RBC) [Entitic vol] 84.2 fL Normal 82.0-98.0 The [facility] Comment on above: Performed By: #### 5 7306, 47665 #### [facility] [address] [place] [address], [facility] [[email or web address]] Monocytes (Bld) [#/Vol] 0.7 10*3/uL Normal 0.1-1.0 The [facility] Comment on above: Performed By: #### 5 7306, 61186 #### [facility] [address] [place] [address], [facility] [[email or web address]] MONOS 9.4 % Normal 5.0-12.0 [facility] Comment on above: Performed By: #### 5 7306, 37529 #### [facility] [address] [place] [address], [facility] [[email or web address]] Neutrophils/100 WBC (Bld) 70.3 % Normal 40.0-72.0 The [facility] Comment on above: Performed By: #### 5 7306, 64340 #### [facility] [address] [facility] [place] [address], [facility] [[email or web address]] Nucleated RBC/100 WBC (Bld) [Ratio] 0 % Normal 0-0 The [facility] Comment on above: Performed By: #### 5 7306, 68332 #### [facility] [address] [place] [address], [place] PLAT CNT 235 10*3/uL Normal 150-400 The [facility] Comment on above: Performed By: #### 5 7307, 62383 #### [facility] [address] [facility]. [address] RBC (Bld) [#/Vol] 5.89 10*6/uL High 4.20-5.70 [facility] Comment on above: Performed By: #### 5 7307, 15792 #### [facility] [address] [facility] [address] WBC (Bld) [#/Vol] 7.48 10*3/uL Normal 4.00-10.60 [facility] Comment on above: Performed By: #### 5 7307, 84777 #### [facility] [address] [facility]. [address] PROTHROMBIN TIMEon 9 INR Coag (PPP) [Relative time] 1.12 {INR} Normal 0.91-1.16 The [facility] Comment on above: Result Comment: ACCC P [...] CHEST 1995;108:231S-246S. Performed By: #### 5 7307, 03502 #### [facility] [address] [facility]. [address] PT Coag (PPP) [Time] 14.4 s Normal 12.3-14.8 The [facility] Comment on above: Result Comment: ALL RESULTS MUST BE INTERPRETED WITH RESPECT TO BLOOD DRAWING ARTIFACT OR DILUTION ERROR OF ANTICOAGULANT AT THE TIME OF SAMPLING. Performed By: #### 5 7307, 02526 #### [facility] [address] [facility]. [address] TYPE AND SCREENon 01-23-2019 ABO INTERPRETATION A Normal [facility] Comment on above: Performed By: #### 5 7307, 02888 #### [facility] [address] [facility] [place] [address], [facility] [[email or web address]] RH INTERPRETATION Positive Normal The [facility] Comment on above: Performed By: #### 5 7307, 44090 #### [facility] [address] [facility]. [address] 3D CERVICAL SPINE WO CONT RASTon 01-12-2019 CT 3D CERVICAL SPINE WO CONTRAST [facility] Department of Radiology [address] [place] [phone] Patient Name: MATTY GARCES : 1970 Sex: M Age: Race: White Pt. Location: Patient Status: D Ordered Date: 01/10/2019 2:15:00 PM Completed Date: 01/12/2019 10:32 AM Requesting Provider: LUCIANO VIEIRA Attending Provider: LUCIANO VIEIRA Report Copy To: VENUS MENDEZ Signs & Symptoms: M48.02 Spinal stenosis, cervical region I10 History: Althea para auth # [id number] 01/10/19-02/09/19 [id number] *er Comments: Exam: CT 3D CERVICAL SPINE [...] incomplete Electronically signed by:Ten Garland. Transcribed by: [email or web address], User Resident: Electronically Signed by: TEN GARLAND @ 01/13/2019 09:18 AM Normal The [facility] CERVICAL SPINE 2 OR 3 [facility] 01-05-2019 CERVICAL SPINE 2 OR 3 S [facility] Department of Radiology [address] [place] [phone] Patient Name: MATTY GARCES : 1970 Sex: M Age: Race: White Pt. Location: Patient Status: O Ordered Date: 01/05/2019 9:00:00 AM Completed Date: 01/05/2019 09:06 AM Requesting Provider: LUCIANO VIEIRA Attending Provider: LUCIANO VIEIRA Report Copy To: Signs & Symptoms: M48.02 Spinal stenosis, cervical region I10 History: [place] Comments: , , , Ordering Provider - LUCIANO VIEIRA MD , Exam: CERVICAL SPINE 2 OR 3 [facility] CERVICAL SPINE 2 OR 3 [facility] 01/05/2019 9:06 AM EDT SIGNS AND [...] findings. Electronically signed by:Ten Garland. Transcribed by: [email or web address], User Resident: SHELLY DELA CRUZ Electronically Signed by: TEN GARLAND @ 01/05/2019 12:37 PM I personally read this/these film(s) with this resident Normal The [facility] Comment on above: Order Comment: , , = ========= , Ordering Provider - LUCIANO VIEIRA MD , CERVICAL SPINE 2 OR 3 [facility] 08-30-2018 CERVICAL SPINE 2 OR 3 [facility] Department of Radiology [address] [place] [phone] Patient Name: MATTY GARCES : 1970 [...] findings. Electronically signed by:Bella King. Transcribed by: [email or web address], User Resident: RYAN HEAD Electronically Signed by: BELLA KING @ 08/30/2018 05:45 PM I personally read this/these film(s) with this resident Normal The [facility] Comment on above: Order Comment: , POS T OP XRAY AP/LAT ONLY , POST OP XRAY AP/LAT ONLY , , , Ordering Provider - LUCIANO VIEIRA MD , Operative Reporton 8 Operative Report MR#: [id number] I [facility] Pt. Name: Matty Garces Room #: [id number] Discharge Date: Birthdate: 1970 OPERATIVE REPORT DATE OF SURGERY: 08/17/2018 SURGEON: Luciano Vieira M.D. PREOPERATIVE DIAGNOSIS: Herniated cervical disk at C6-7. POSTOPERATIVE DIAGNOSIS: Herniated cervical disk at C6-7. PEDIATRIC CLINICAL DIETICIAN: ADENIKE Larios. ANESTHESIA: Endotracheal, Braida. PROCEDURE: Anterior [...] A Luciano Vieira M.D. Date Dict: 08/17/2018/12:31 P/Lucaino Vieira M.D. Date Trans: 08/17/2018 11:25 P/sasha [id number] cc: Venus Mendez M.D. [address], [facility] Eze [facility] [phone] Normal The [facility] CERVICAL SPINE 2 OR 3 [facility] 08-17-2018 CERVICAL SPINE 2 OR 3 [facility] Department of Radiology [address] [place] [phone] Patient Name: MATTY GARCES : 1970 [...] findings. Electronically signed by:Bernice Hoyt. Transcribed by: [email or web address], User Resident: EMILE TINAJERO Electronically Signed by: BERNICE HOYT @ 08/18/2018 01:06 PM I personally read this/these film(s) with this resident Normal The [facility] Comment on above: Order Comment: C6-7 ACDF with POC GLUCOSE LABon 08-17-2018 Glucose [Mass/Vol] 113 mg/dL High 70-100 [facility] Comment on above: Performed By: #### 8 5499 #### [facility] [address] [place] [address], [facility] [[email or web address]] RBC'S 2 UNITSon 08-17-2018 CROSSMATCH INTERP 1 COMP Normal [facility] Comment on above: Performed By: #### 8 6002 #### [facility] [address] [place] [address], [facility] [[email or web address]] CROSSMATCH INTERP 2 COMP Normal [facility] Comment on above: Performed By: #### 8 6002 #### [facility] [address] [place] [address], [facility] [[email or web address]] PRODUCT CODE 1 E0336 Normal [facility] Comment on above: Performed By: #### 8 6002 #### [facility] [address] [place] [address], [facility] [[email or web address]] PRODUCT CODE [address] [facility] Comment on above: Performed By: #### 8 6002 #### [facility] [address] [place] [address], [facility] [[email or web address]] PRODUCT STATUS 1 RE Normal The [facility] Comment on above: Result Comment: Resu lt changed by IF on 08/20/2018 07:48. The previous value was XM. Performed By: #### 8 [id number] #### [facility] [address] [place] [address], [facility] [[email or web address]] PRODUCT STATUS 2 RE Normal The [facility] Comment on above: Result Comment: Resu lt changed by IF on 08/20/2018 07:48. The previous value was XM. Performed By: #### 8 6002 #### [facility] [address] UNIT ABO 1 A Normal [facility] Comment on above: Performed By: #### 8 6002 #### [facility] 3000 [facility]. [address] UNIT ABO 2 A Normal The [facility] Comment on above: Performed By: #### 8 6002 #### [facility] [address] UNIT ID 1 [id number] Normal The [facility] Comment on above: Performed By: #### 8 6002 #### [facility] 3000 [facility]. [address] UNIT ID 2 [id number] Normal The [facility] Comment on above: Performed By: #### 8 6002 #### [facility] [address] [facility]. [address] UNIT RH 1 Positive Normal The [facility] Comment on above: Performed By: #### 8 6002 #### [facility] [address] [facility]. [address] UNIT RH 2 Positive Normal The [facility] Comment on above: Performed By: #### 8 [id number] #### [facility] [address] *MRSA/MSSA CULTUREon 018 *MRSA/MSSA CULTURE Clinical Report: (D) Specimen: NASAL SWAB Collected: 08/02/2018 12:37 Status: Final Last Updated: 08/03/2018 14:26 ISO (Final) No Methicillin Resistant Staphylococcus aureus Isolated (MRSA) ISO (Final) Methicillin Sensitive Staphylococcus aureus (MSSA) Isolated Normal The [facility] Comment on above: Performed By: #### 3 1302 #### [facility] [address] APTTon 08-02-2018 aPTT Coag (Bld) [Time] 31.2 s Normal 25.0-35.0 The [facility] Comment on above: Result Comment: ALL RESULTS [...] THIS PURPOSE. Performed By: #### 5 7307, 97029 #### [facility] [address] [place] [address], [facility] [[email or web address]] BASIC METABOLIC PANELon 11-2 Calcium [Mass/Vol] 9.4 mg/dL Normal 8.6-10.3 [facility] Comment on above: Performed By: #### 0 0071 #### [facility] [address] [place] [address], [facility] [[email or web address]] Chloride [Moles/Vol] 103 mmol/L Normal 98-107 The [facility] Comment on above: Performed By: #### 0 0071 #### [facility] [address] [place] [address], [facility] [[email or web address]] CO2 [Moles/Vol] 29 mmol/L Normal 21-31 [facility] Comment on above: Performed By: #### 0 0071 #### [facility] [address] [place] [address], [facility] [[email or web address]] Creatinine [Mass/Vol] 1.06 mg/dL Normal 0.70-1.30 The [facility] Comment on above: Performed By: #### 0 0071 #### [facility] [address] [place] [address], [facility] [[email or web address]] GFR/1.73 sq M predicted among blacks MDRD (S/P/Bld) [Vol rate/Area] mL/min/{1.73_m2} Normal >60 The [facility] Comment on above: Performed By: #### 0 0071 #### [facility] [address] [place] [address], [facility] [[email or web address]] GFR/1.73 sq M predicted among non-blacks MDRD (S/P/Bld) [Vol rate/Area] mL/min/{1.73_m2} Normal >60 The [facility] Comment on above: Performed By: #### 0 0071 #### [facility] [address] [place] [address], [facility] [[email or web address]] Glucose [Mass/Vol] 84 mg/dL Normal 70-100 The [facility] Comment on above: Performed By: #### 0 0071 #### [facility] [address] [place] [address], [facility] [[email or web address]] Potassium [Moles/Vol] 4.0 mmol/L Normal 3.5-5.1 The [facility] Comment on above: Performed By: #### 0 0071 #### [facility] [address] Sodium [Moles/Vol] 140 mmol/L Normal 136-145 The [facility] Comment on above: Performed By: #### 0 0071 #### [facility] [address] Urea nitrogen [Mass/Vol] 20 mg/dL Normal 7-25 The [facility] Comment on above: Performed By: #### 0 0071 #### [facility] [address] CBC W/DIFFon 08-02-2018 ABS BASOPHILS 0.1 10*3/uL Normal 0.0-0.[address] [facility] Comment on above: Performed By: #### 5 3 #### [facility] [address] [place] [address], [facility] [[email or web address]] ABS IMM GRANS 0.1 10*3/uL Normal 0.0-0.[address] [facility] Comment on above: Performed By: #### 5 3 #### [facility] [address] [place] [address], [facility] [[email or web address]] ABS NEUTROPHILS 4.2 10*3/uL Normal 1.6-7.6 [facility] Comment on above: Performed By: #### 5 102 #### [facility] [address] [place] [address], [facility] [[email or web address]] Basophils/100 WBC (Bld) 1.3 % High 0.0-1.0 The [facility] Comment on above: Performed By: #### 102 #### [facility] [address] [facility] [place] [address], [facility] [[email or web address]] Eosinophils (Bld) [#/Vol] 0.1 10*3/uL Normal 0.0-0.5 The [facility] Comment on above: Performed By: #### 102 #### [facility] [address] [facility] [place] [address], [facility] [[email or web address]] Eosinophils/100 WBC (Bld) 2.0 % Normal 0.0-6.0 The [facility] Comment on above: Performed By: #### 102 #### [facility] [address] Erythrocyte distribution width (RBC) [Ratio] 13.6 % Normal 11.5-15.0 The [facility] Comment on above: Performed By: #### 3 #### [facility] 3000 [facility]. [address] Hematocrit (Bld) [Volume fraction] 44.3 % Normal 39.0-50.0 The [facility] Comment on above: Performed By: #### 102 #### [facility] [address] [facility] [place] [address], [facility] [[email or web address]] Hemoglobin (Bld) [Mass/Vol] 15.1 g/dL Normal 13.0-17.0 The [facility] Comment on above: Performed By: #### 5 0103 #### [facility] [address] IMMATURE GRANS 1.1 % High 0.0-1.[address] [facility] Comment on above: Performed By: #### 5 102 #### [facility] [address] [place] [address], [facility] [[email or web address]] Lymphocytes (Bld) [#/Vol] 1.2 10*3/uL Normal 1.2-4.0 The [facility] Comment on above: Performed By: #### 102 #### [facility] [address] [place] [address], [facility] [[email or web address]] Lymphocytes/100 WBC (Bld) 18.3 % Low 20.0-45.0 The [facility] Comment on above: Performed By: #### 102 #### [facility] [address] MCH (RBC) [Entitic mass] 29.0 pg Normal 27.0-33.0 The [facility] Comment on above: Performed By: #### 5 102 #### [facility] [address] MCHC (RBC) [Mass/Vol] 34.1 g/dL Normal 32.0-35.0 The [facility] Comment on above: Performed By: #### 5 3 #### [facility] [address] MCV (RBC) [Entitic vol] 85.0 fL Normal 82.0-98.0 The [facility] Comment on above: Performed By: #### 5 3 #### [facility] [address] [place] [address], [facility] [[email or web address]] Monocytes (Bld) [#/Vol] 0.7 10*3/uL Normal 0.1-1.0 The [facility] Comment on above: Performed By: #### 5 0103 #### [facility] [address] [facility] [place] [address], [facility] [[email or web address]] MONOS 11.1 % Normal 5.0-12.0 The [facility] Comment on above: Performed By: #### 5 0103 #### [facility] [address] [place] [address], [facility] [[email or web address]] Neutrophils/100 WBC (Bld) 66.2 % Normal 40.0-72.0 The [facility] Comment on above: Performed By: #### 5 3 #### [facility] [address] [facility] [place] [address], [facility] [[email or web address]] Nucleated RBC/100 WBC (Bld) [Ratio] 0 % Normal 0-0 The [facility] Comment on above: Performed By: #### 5 102 #### [facility] [address] [facility] [place] [address], [facility] [[email or web address]] PLAT CNT 179 10*3/uL Normal 150-400 The [facility] Comment on above: Performed By: #### 5 0103 #### [facility] [address] [facility] [place] [address], [facility] [[email or web address]] RBC (Bld) [#/Vol] 5.21 10*6/uL Normal 4.20-5.70 The [facility] Comment on above: Performed By: #### 5 102 #### [facility] [address] [facility] [place] [address], [facility] [[email or web address]] WBC (Bld) [#/Vol] 6.39 10*3/uL Normal 4.00-10.60 The [facility] Comment on above: Performed By: #### 5 3 #### [facility] [address] [place] [address], [facility] [[email or web address]] CERVICAL SPINE 4 OR 5 VIEWSo n 08-02-2018 CERVICAL SPINE 4 OR 5 VIEWS [facility] Department of Radiology [address] [place] [id number] Patient Name: MATTY GARCES : 1970 Sex: [...] findings. Electronically signed by:Bella King. Transcribed by: [email or web address], User Resident: EMILE TINAJERO Electronically Signed by: BELLA KING @ 08/03/2018 11:58 AM I personally read this/these film(s) with this resident Normal The [facility] Comment on above: Order Comment: , PRE OP XRAY AP/LAT \EANDE\ FLEX/EX , PREOP XRAY AP/LAT \EANDE\ FLEX/EX , , , Ordering Provider - LUCIANO VIEIRA MD , PROTHROMBIN TIMEon 8 INR Coag (PPP) [Relative time] 1.15 {INR} Normal 0.91-1.16 The [facility] Comment on above: Result Comment: ACCC P [...] CHEST 1995;[id number]. Performed By: #### 5 7307, [id number] #### [facility] [address] [place] [address], [place] PT Coag (PPP) [Time] 14.7 s Normal 12.3-14.8 The [facility] Comment on above: Result Comment: ALL RESULTS MUST BE INTERPRETED WITH RESPECT TO BLOOD DRAWING ARTIFACT OR DILUTION ERROR OF ANTICOAGULANT AT THE TIME OF SAMPLING. Performed By: #### 5 7307, 91539 #### [facility] [address] [place] [address], [facility] [[email or web address]] TYPE AND SCREENon 08-02-2018 ABO INTERPRETATION A Normal [facility] Comment on above: Order Comment: 2 uni ts 2 units 2 units 2 units 2 units Performed By: #### 6 2586 #### [facility] [address] [place] [address], [place] RH INTERPRETATION Positive Normal The [facility] Comment on above: Order Comment: 2 uni ts 2 units 2 units 2 units 2 units Performed By: #### 6 2586 #### [facility] [address] [place] [address], [place] URINALYSIS REFLEXon 08-02-20 18 Appearance (U) CLEAR Normal CLEAR The [facility] Comment on above: Performed By: #### 3 0965 #### [facility] [address] [place] [address], [place] Bilirubin [Mass/Vol] Negative Normal NEGATIVE The [facility] Comment on above: Performed By: #### 3 0965 #### [facility] [address] [place] [address], [place] BLOOD Negative Normal NEGATIVE The [facility] Comment on above: Performed By: #### 3 0965 #### [facility] [address] [place] [address], [place] Color (U) YELLOW Normal YELLOW The [facility] Comment on above: Performed By: #### 3 0965 #### [facility] [address] [place] [address], [place] Glucose [Mass/Vol] 150 mg/dL Abnormal NEGATIVE The [facility] Comment on above: Performed By: #### 3 0965 #### [facility] [address] [place] [address], [facility] [[email or web address]] KETONE Negative Normal NEGATIVE The [facility] Comment on above: Performed By: #### 3 0965 #### [facility] [address] [place] [address], [facility] [[email or web address]] [place] Negative Normal NEGATIVE The [facility] Comment on above: Performed By: #### 3 0965 #### [facility] [address] [place] [address], [facility] [[email or web address]] MICRO NOT DONE negative chemical reactions unless requested in original order Normal The [facility] Comment on above: Performed By: #### 3 0965 #### [facility] [address] [place] [address], [email or web address]] Nitrite Ql (U) Negative Normal NEGATIVE The [facility] Comment on above: Performed By: #### 3 0965 #### [facility] [address] [place] [address], [facility] [[email or web address]] pH (Bld) 5.0 Normal 5.0-8.0 The [facility] Comment on above: Performed By: #### 3 0965 #### [facility] [address] [place] [id number], [facility] [[email or web address]] Protein (U) [Mass/Vol] Negative Normal NEGATIVE The [facility] Comment on above: Performed By: #### 3 0965 #### [facility] [address] [place] [address], [facility] [[email or web address]] SPEC GRAV 1.024 High 1.015-1.020 The [facility] Comment on above: Performed By: #### 3 0965 #### [facility] [address] [place] [address], [facility] [[email or web address]] Vital Signs Date Time Vital Sign Value Performing Clinician Bijali litlmaont 02-25-2022 10:30-0400 Blood Pressure Location Viola Lue [facility] 02-25-2022 10:30-0400 Diastolic blood pressure 107 mm[Hg] [facility] 02-25-2022 10:30-0400 Heart rate 74 /min [facility]ue [facility] 02-25-2022 10:30-0400 Respiratory rate 16 /min Viola Lue [facility] 02-25-2022 10:30-0400 Systolic blood pressure 157 mm[Hg] Viola Lue [facility] Encounters Encounter Date Encounter Type Care Provider Facility Start: 01-10-2024 End: 01-11-2024 ambulatory VALENCIA Pate APLING Not Available Start: 01-03-2024 End: 01-03-2024 ambulatory Trey Vallejo Facility:[facility] Start: 01-03-2024 End: 01-03-2024 ambulatory DPM Trey Vallejo Work Phone: [facility] Work Phone: Start: 01-03-2024 End: 01-03-2024 Departed Referred DPM Trey Vallejo Work Phone: [facility] Start: 12-29-2023 End: 12-29-2023 ambulatory RUBÉN GEIGER Not Available Start: 11-29-2023 End: 11-30-2023 ambulatory Diallo Beauchamp MD Facility:[facility] Start: 10-18-2023 End: 10-19-2023 ambulatory Diallo Beauchamp MD Facility:[facility] Start: 09-27-2023 End: 09-27-2023 ambulatory RUBÉN GEIGER Not Available Start: 08-30-2023 End: 08-31-2023 ambulatory Diallo Beauchamp MD Facility:[facility] Start: 07-12-2023 End: 07-13-2023 ambulatory Diallo Beauchamp MD Facility:[facility] Start: 06-14-2023 End: 06-15-2023 ambulatory Kirkus Woo Beauchamp MD Facility:[facility] Start: 03-11-2023 End: 03-11-2023 ambulatory Rubén Geiger Facility:[facility] Start: 12-06-2022 End: 12-06-[address] VENUS MENDEZ . Facility:[facility] Start: 12-05-2022 Encounter for genera l adult medical examination without abnormal findings DR VENUS MENDEZ . [facility] Start: 12-01-2022 End: 12-02-[address] VENUS [...] encounter procedure Viola Grullon [facility] Start: 01-04-2022 End: 01-05-[address] VENUS MENDEZ . Facility: Start: 01-30-2019 End: 02-01-2019 Evaluation and management of inpatient PROVIDER UNKNOWN Facility:[facility] Start: 08-17-2018 End: 08-18-2018 Patient encounter procedure PROVIDER UNKNOWN Facility:[facility] Procedures Date Procedure Procedure Detail Performing Clinician Start: 12-01-[address] FRANKLIN MENDEZ . Comment on above: Performed By: #### P [facility] #### [facility] [address] [place] [address] Dr. Shabnam Rae Start: 01-30-2019 FUSION CERV JT W INT BD FUS DEV, ANT APPR A COL, OPEN [facility] Start: 01-30-2019 REMOVAL OF INT FIX F ROM CERVCAL VERTEBRA, OPEN APPROACH [facility] Start: 01-23-2019 Antibody screen PROVIDE R UNKNOWN Comment on above: Performed By: #### 5 7307, 55491 #### [facility] [address] Start: 08-17-2018 ANESTH SPINE CORD SURGERY SANDRA BRAIDA Start: 08-17-2018 INSERT SPINE FIXATIO N DEVICE [facility] Start: 08-17-2018 NECK SPINE FUSE\T\RE MOV BEL C2 [facility] Start: 08-17-2018 SP BONE ALGRFT STRUC T ADD-ON [facility] Start: 08-02-2018 Antibody screen PROVIDE R UNKNOWN Comment on above: Order Comment: 2 uni ts 2 units 2 units 2 units 2 units Performed By: #### 6 2586 #### [facility] [address] [facility]. [address] Colonoscopy Viola Lue Hemorrhoids (disorder) Viola Lue Hernia of abdominal cavity (disorder) Viola Lue Tonsillectomy [facility] Payers Date Payer Category Payer Self-pay [id number] 2022 Medicaid [id number] 2022 Unknown 1970 Unknown [id number] 2.16.8 40.1.052941.3.579.2.647 1970 Unknown [id number] 2.16.8 40.1.077618.3.579.2.647 1970 Unknown [id number] 2.16.84 0.1.867329.3.579.2.593 1970 Unknown [id number] 2.16.84 0.1.836306.3.579.2.593 1970 Unknown [id number] 2.16.84 0.1.833353.3.579.2.593 1970 Unknown [id number] 2.16.84 0.1.446963.3.579.2.593 1970 Unknown [id number] 2.16.84 0.1.141305.3.579.2.593 1970 Unknown [id number] 2.16.84 0.1.423209.3.579.2.593 1970 Unknown [id number] 2.16. 840.1.463129.3.579.2.196 1970 Unknown [id number] 2.16. 840.1.162813.3.579.2.196 1970 Unknown [id number] 2.16. 840.1.715104.3.579.2.196 1970 Unknown [id number] 2.16. 840.1.399951.3.579.2.196 1970 Unknown [id number] 2.16. 840.1.907928.3.579.2.196 1970 Unknown [id number] 2.16.84 0.1.356537.3.579.2.1259 1970 Unknown [id number] 2.16.84 0.1.822116.3.579.2.1259 1970 Unknown [id number] 2.16.84 0.1.998259.3.579.2.1259 1970 Unknown [id number] 2.16.84 0.1.513064.3.579.2.1259 1959 Unknown [id number] Unknown [id number] Unknown [id number] 2.16.8 40.1.875265.3.579.2.531 Unknown [id number] 2.16.8 40.1.639336.3.579.2.531 Social History Date Type Detail Facility Tobacco smoking status No Smokin g Status Entered [facility] Sex Assigned At Male [facility] Start: 05-15-2018 Tobacco smoking stat us NHIS Ex-smoker (finding) [facility] Start: 1970 Sex Assigned At Male F [facility] Functional Status Date Assessment Result Facility 02-25-2022 Functional Status N/A [facility] Progress note 06-09-2023 Note Date & Type Note Facility 06-09-2023 Note [facility] Continue GDMT- Diuretic therapy Monitor daily weights, I&O, fluid restriction 1.5-2L/day, renal function and electrolytes- [facility] Clinical Note 03-26-2022 Note Date & Type [...] by: ALVINA CAICEDO Date: 2022-03-26 10:47 [facility] Discharge instructions 02-25-2022 Note Date & [...] Watch the hydrocele for any changes. Take azyj-ser-ghrxnhq and prescription medicines only as told by [...] 02/17/2011 Document Revised: 09/10/2018 Document Reviewed: 09/10/2018 [employer] Patient Education 2020 [employer]. Follow Up Care 01/28/2022 10:36:35 With:Mitchel DELGADO, Viola Cohn, URL, U[facility] Address: When: Unknown [facility] Evaluation + Plan note Note Date & Type Note Facility Evaluation + Plan note No data available for this section [facility] Evaluation note Note Date & Type Note Facility Evaluation note No [facility]: Progress note Note Date & Type Note Facility Progress note No data available for this section [facility] Summary Purpose Family History No Family History Records FoundNo Family History Records FoundNo Family History Records FoundNo Family History Records FoundNo Family History Records FoundNo Family History Records FoundNo Family History Records Found Advance Directives No Advanced Directives Records Found Advance Directive Response Recorded Date/ Time Advance Directives No May 12:42pm Hospital Course Note MR#: [id number] I [facility] Pt. Name: Matty Garces Admitted: 01/30/2019 [...] and content) DATE CREATED AUTHOR 07/19/2019 [facility] DATE CREATED AUTHOR AUTHOR'S ORGANIZ ATION 02/27/2022 [facility] DATE CREATED AUTHOR AUTHOR'S ORGANIZ ATION 12/08/2022 [facility] DATE CREATED AUTHOR AUTHOR'S ORGANIZ ATION 06/17/2023 [facility] DATE CREATED AUTHOR AUTHOR'S ORGANIZ ATION 12/03/2023 [facility] DATE CREATED AUTHOR AUTHOR'S ORGANIZ ATION 01/08/2024 [facility] DATE CREATED AUTHOR AUTHOR'S ORGANIZ ATION 01/15/2024 [facility] Care Team (unrecognized sect ion and [...] BE BASED ON THE PRIMARY CLINICAL RECORDS. [employer] provides no warranty or guarantee of the accuracy or completeness of information in this document.
[2024-02-05 16:30] VITALS: BP 164/78; PULSE 74; O2SAT 100
--- NOTE | 2024-02-06 07:54 | ED_ITS ---
HPI - Epistaxis General Chief Complaint: Epistaxis Stated Complaint: EPISTAXIS Time Seen by Provider: 02/05/24 12:31 Source: patient Mode of arrival: walk-in Limitations: no limitations History of Present Illness HPI Narrative: The patient presented to the ER after he had a epistaxis and nasal bleeding that started while he was asleep, he mentioned that he woke up feeling that he is choking and he noted that his bleeding, by the time the patient came to the ER he is applying pressure and nasal clamp was placed in the waiting room, by the time I am evaluating the patient he is not have any more bleeding and he does not have any concerns, patient mentioned that he have no history of trauma or fall and he does not take any anticoagulation Related Data Home Medications ?Medication ?Instructions ?Recorded ?Confirmed carvedilol 25 mg tablet 25 mg PO BID 06/14/23 01/03/24 citalopram 20 mg tablet 20 mg PO DAILY 06/14/23 01/03/24 clonazepam 0.5 mg tablet 0.5 mg PO DAILY 06/14/23 01/03/24 doxazosin 8 mg tablet 8 mg PO DAILY 06/14/23 01/03/24 doxepin 10 mg capsule 10 mg PO DAILY PRN itching 06/14/23 01/03/24 furosemide 20 mg tablet 20 mg PO DAILY 06/14/23 12/28/23 gabapentin 600 mg tablet 600 mg PO BID 06/14/23 01/03/24 glycopyrrolate 1 mg tablet 1 mg PO BID 06/14/23 01/03/24 hydroxyzine pamoate 25 mg capsule 25 mg PO QPM 06/14/23 01/03/24 meclizine 25 mg tablet 25 mg PO DAILY 06/14/23 01/03/24 pantoprazole 40 mg tablet,delayed 40 mg PO DAILY 06/14/23 01/03/24 release sildenafil 25 mg tablet 25 mg PO DAILY 06/14/23 01/03/24 simvastatin 20 mg tablet 20 mg PO DAILY 06/14/23 01/03/24 testosterone cypionate 100 mg/mL 100 mg subcut .EVERY 2 WEEKS 06/14/23 12/28/23 intramuscular oil tizanidine 4 mg capsule 4 mg PO .EVERY NIGHT 06/14/23 01/03/24 aspirin 81 mg tablet,delayed 81 mg PO DAILY 09/04/23 01/03/24 release (Miguel Angel Low Dose Aspirin) modafinil 200 mg tablet 200 mg PO DAILY 09/04/23 01/03/24 potassium chloride 10 mEq 10 meq PO Q12H 09/04/23 01/03/24 tablet,extended release amantadine HCl 100 mg tablet 100 mg PO BID 12/28/23 01/03/24 biotin 10,000 mcg capsule mcg PO 12/28/23 cholecalciferol (vitamin D3) 125 5,000 unit PO DAILY 12/28/23 01/03/24 mcg (5,000 unit) capsule melatonin 10 mg capsule 10 mg PO DAILY 12/28/23 01/03/24 multivitamin (Daily Multi-Vitamin 1 tab PO DAILY 12/28/23 01/03/24 tablet) ondansetron 4 mg disintegrating 4 mg PO TID-QID PRN nausea and 12/28/23 01/03/24 tablet vomiting sumatriptan succinate 100 mg tablet 100 mg PO Q2H PRN migraine headache 12/28/23 01/03/24 Previous Rx's ?Medication ?Instructions ?Recorded aspirin 81 mg tablet,delayed 81 mg PO BID 30 days #60 tabs 01/03/24 release (Adult Low Dose Aspirin) cefadroxil 500 mg capsule 500 mg PO BID 7 days #14 caps 01/03/24 tramadol 50 mg tablet 50 mg PO Q6H PRN pain 7 days #28 01/03/24 tabs cephalexin 500 mg capsule 500 mg PO TID 7 days #21 caps 02/05/24 sodium chloride 0.65 % nasal spray 1 spray intranasal BID PRN dry 02/05/24 aerosol nasal passages #15 mL Allergies Allergy/AdvReac Type Severity Reaction Status Date / Time No Known Drug Allergies Allergy Verified 12/28/23 09:24 Review of Systems ROS Status of ROS 10 or more systems reviewed and unremark able except as noted in history and below [facility] Medical History (Updated 02/05/24 @ 16:22 by Melissa Baez MD) Prolonged emergence from general anesthesia ?T88.59XA - Other complications of anesthesia, initial encounter (ICD-10) Pain management contract signed ?Z02.89 - Encounter for other administrative examinations (ICD-10) Back pain ?M54.9 - Dorsalgia, unspecified (ICD-10) PTSD (post-traumatic stress disorder) ?F43.10 - Post-traumatic stress disorder, unspecified (ICD-10) Depression ?F32.A - Depression, unspecified (ICD-10) Dysphagia ?R13.10 - Dysphagia, unspecified (ICD-10) Uvulitis ?K12.2 - Cellulitis and abscess of mouth (ICD-10) Insomnia ?G47.00 - Insomnia, unspecified (ICD-10) Migraine ?G43.909 - Migraine, unspecified, not intractable, without status migrainosus (ICD-10) GERD (gastroesophageal reflux disease) ?K21.9 - Gastro-esophageal reflux disease without esophagitis (ICD-10) Dyspnea on exertion ?R06.09 - Other forms of dyspnea (ICD-10) Heart valve disorder ?I38 - Endocarditis, valve unspecified (ICD-10) Hypoglycemia ?E16.2 - Hypoglycemia, unspecified (ICD-10) Delayed recovery from anesthesia Chronic foot ulcer ?L97.509 - Non-pressure chronic ulcer of other part of unspecified foot with unspecified severity (ICD-10) 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 - Central serous chorioretinopathy, unspecified eye (ICD-10) Chronic pain ?G89.29 - Other chronic pain (ICD-10) Narcolepsy ?G47.419 - 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) Anxiety ?F41.9 - Anxiety disorder, unspecified (ICD-10) Upper back pain ?M54.9 - Dorsalgia, unspecified (ICD-10) Low back pain ?M54.50 - Low back pain, unspecified (ICD-10) TMJ (dislocation of temporomandibular joint) ?S03.00XA - Dislocation of jaw, unspecified side, initial encounter (ICD-10) Obesity ?E66.9 - Obesity, unspecified (ICD-10) Sleep apnea ?G47.30 - Sleep apnea, unspecified (ICD-10) Hypertension ?I10 - Essential (primary) hypertension (ICD-10) Surgical History (Updated 12/28/23 @ 10:06 by Brittany Benavidez NP) H/O foot surgery ?Z98.890 - Other specified postprocedural states (ICD-10) H/O radiofrequency ablation (RFA) of nerve of lumbar spine ?Z98.890 - Other specified postprocedural states (ICD-10) History of fusion of cervical spine ?Z98.1 - Arthrodesis status (ICD-10) H/O inguinal hernia repair ?Z98.890 - Other specified postprocedural states (ICD-10) ?Z87.19 - Personal history of other diseases of the digestive system (ICD-10) H/O repair of rotator cuff ?Z98.890 - Other specified postprocedural states (ICD-10) History of uvulopalatopharyngoplasty ?Z98.890 - Other specified postprocedural states (ICD-10) Family History (Updated 01/03/24 @ 06:40 by Veronique Yan, RN) Other Family history of diabetes mellitus Family history of hypertension Family history of myocardial infarction Family history of stroke Social History (Updated 01/03/24 @ 06:41 by Veronique Yan, RN) Within the past year, how often did you have a drink containing alcohol: monthly or less Smoking status: Never smoker Non-prescribed substance use: cannabis (any form) Previous occupational history: unemployed Highest level of school completed/degree received: high school graduate Exam Narrative Exam Narrative: Nurses notes and vital signs reviewed and patient is not hypoxic. General: Well-appearing and in no apparent distress. Skin: Warm, dry, no pallor noted. No rash. Head: Normocephalic, atraumatic. Neck: Supple, non-tender. Eye: Pupils are equal, round and EOMI. No scleral icterus. Ears, Nose, Mouth, and Throat: The patient have to blood clots in the posterior aspect of both nostrils, dried blood in the outside of the nose, there is no bleeding actively in the back of the throat oral mucosa is moist, no posterior oropharynx erythema, uvula is mid-line Cardiovascular: Regular Rate and Rhythm without murmur, gallop or rub. Respiratory: No accessory muscle use or respiratory distress. Lungs are clear to auscultation, no wheezing, rales or rhonchi Chest Wall: no tenderness Back: No midline thoracic or lumbar vertebral tenderness. No CVA tenderness Musculoskeletal: normal ROM, no calf or popliteal tenderness, no lower extremity edema/swelling GI: Abdomen is soft, non-distended. Normal bowel sounds. No masses appreciated. No tenderness to palpation. No rebound, guarding, or rigidity noted. Neurological: A&O x4. No cranial nerve dysfunction observed. No truncal ataxia. Moves all extremities. Sensation intact. Psychiatric: Cooperative and interactive. Normal mood and affect. Constitutional Vital Signs, click to edit/add: Last Vital Signs Temp 98.5 F 02/05/24 12:22 Pulse 74 02/05/24 16:30 Resp 18 02/05/24 16:30 BP 164/78 H 02/05/24 16:30 Pulse Ox 100 02/05/24 16:30 O2 Del Method Room Air 02/05/24 16:30 Course Vital Signs Vital signs: Vital Signs Temperature 98.5 F 02/05/24 12:22 Pulse Rate 100 H 02/05/24 12:22 Respiratory Rate 20 02/05/24 12:22 Blood Pressure 132/108 H 02/05/24 12:22 Pulse Oximetry 95 02/05/24 12:22 Temperature 98.5 F 02/05/24 12:22 Pulse Rate 74 02/05/24 16:30 Respiratory Rate 18 02/05/24 16:30 Blood Pressure 164/78 H 02/05/24 16:30 Pulse Oximetry 100 02/05/24 16:30 Oxygen Delivery Method Room Air 02/05/24 16:30 MDM - Epistaxis MDM Narrative Medical decision making narrative: The patient bleeding already resolved he was monitored in the ER during which she had no further bleeding Nasal clamp was enough to control the bleeding here the patient was instructed but keeping the nostril moist [place] [place] prescription provided The patient is to follow up with primary care physician in next 2-3 days or to return to the emergency department should any of the signs or symptoms worsen or new symptoms develop. The patient agrees with the following Diagnosis and Treatment plan and the patient will be discharged home. Discharge Plan Discharge Stand Alone Forms: Portal Instructions Chief Complaint: Epistaxis Clinical Impression: Epistaxis Patient Disposition: Home, Self-Care Time of Disposition Decision: 16:22 Condition: Good Prescriptions / Home Meds: New sodium chloride 0.65 % aerosol,spray 1 spray intranasal BID PRN (Reason: dry nasal passages) Qty: 15 0RF cephalexin 500 mg capsule 500 mg PO TID 7 Days Qty: 21 0RF No Action potassium chloride 10 mEq tablet extended release 10 meq PO Q12H aspirin [Miguel Angel Low Dose Aspirin] 81 mg tablet,delayed release (DR/EC) 81 mg PO DAILY modafinil 200 mg tablet 200 mg PO DAILY gabapentin 600 mg tablet 600 mg PO BID carvedilol 25 mg tablet 25 mg PO BID Rx Instructions: must administer with a meal/food doxazosin 8 mg tablet 8 mg PO DAILY simvastatin 20 mg tablet 20 mg PO DAILY pantoprazole 40 mg tablet,delayed release (DR/EC) 40 mg PO DAILY glycopyrrolate 1 mg tablet 1 mg PO BID furosemide 20 mg tablet 20 mg PO DAILY sildenafil 25 mg tablet 25 mg PO DAILY Rx Instructions: administer 30 minutes to 4 hours before activity tizanidine 4 mg capsule 4 mg PO .EVERY NIGHT testosterone cypionate 100 mg/mL oil 100 mg subcut .EVERY 2 WEEKS citalopram 20 mg tablet 20 mg PO DAILY clonazepam 0.5 mg tablet 0.5 mg PO DAILY hydroxyzine pamoate 25 mg capsule 25 mg PO QPM doxepin 10 mg capsule 10 mg PO DAILY PRN (Reason: itching) meclizine 25 mg tablet 25 mg PO DAILY cholecalciferol (vitamin D3) 125 mcg (5,000 unit) capsule 5,000 unit PO DAILY multivitamin [Daily Multi-Vitamin] Tablet 1 tab PO DAILY biotin 10,000 mcg capsule PO melatonin 10 mg capsule 10 mg PO DAILY amantadine HCl 100 mg tablet 100 mg PO BID sumatriptan succinate 100 mg tablet 100 mg PO Q2H PRN (Reason: migraine headache) ondansetron 4 mg tablet,disintegrating 4 mg PO TID-QID PRN (Reason: nausea and vomiting) aspirin [Adult Low Dose Aspirin] 81 mg tablet,delayed release (DR/EC) 81 mg PO BID 30 Days Qty: 60 0RF cefadroxil 500 mg capsule 500 mg PO BID 7 Days Qty: 14 0RF tramadol 50 mg tablet 50 mg PO Q6H PRN (Reason: pain) 7 Days Qty: 28 0RF Print Language: Mauritanian Instructions: Nosebleed (ED) Referrals: Caden Mendez MD [Primary Care Provider] - 1 week Discharge Date/Time: 02/05/24 16:33
== END 2024-02-05 16:33 | disposition home or self-care (01) ==
PROVIDERS: Emergency Provider Emergency Medicine; PCP Family Medicine
DX: R04.0 Epistaxis (principal)
CPT/HCPCS: 99283

== ENCOUNTER 2024-02-21 16:39 | Outpatient (OUT) | payer MEDICAID, SELFPAY ==
--- OUTSIDE RECORDS SUMMARY | 2024-02-21 17:01 | XMS_ITS ---
Patient Summarization (C-CDA 2.1 CCD) Created on: February 21, 2024 MATTY GARCES : 1970 Sex: Male Author Organization Sample organization Care Team Providers Care Medical Lab Technician Name Role Phone UNKNOWN, PROVIDER Admitting Unavailable UNKNOWN, PROVIDER Attending Unavailable VENUS MENDEZ Referring Unavailable VENUS MENDEZ Primary Care Unavailable [place] Procedure Practitioner Unavailab le UNKNOWN, PROVIDER Surgeon Unavailable [place] Procedure Practitioner Unavailab le SANDRA BILL Surgeon Unavailable UNKNOWN, PROVIDER Admitting Unavailable UNKNOWN, PROVIDER Attending Unavailable VENUS MENDEZ Referring Unavailable VENUS MENDEZ Primary Care Unavailable [place] Procedure Practitioner Unavailab le UNKNOWN, PROVIDER Surgeon [...] DELGADO, Diallo Berkowitz Attending Unavailable Gishruthi DELGADO, Andisai Berkowitz Attending Unavailable Quynh DELGADO, Andisai Berkowitz Attending Unavailable Quynh DELGADO, Andisai Berkowitz Attending Unavailable Quynh DELGADO, Diallo Berkowitz Attending Unavailable CHINO Vallejo Attending Provider [phone] Trey Vallejo Admitting Unavailable Trey Vallejo Attending Unavailable Rubén Geiger. Admitting Unavailable Rubén Geiger. Attending Unavailable Venus Mendez Primary Care Unavailable RUBÉN GEIGER Attending Unavailable RUBÉN GEIGER Attending Unavailable VALENCIA DE LEÓN Attending Unavailable VALENCIA DE LEÓN Referring Unavailable Allergies Allergy Classification Reported Allergen(s) Allergy Type Date of Onset Reaction(s) Facility (1 source) Aspartame Drug Allergy 08-17-20 [facility] (1 source) avoid; Translations: [Unknown] Propensity to adverse reactions (disorder) 08-17-20 [facility] (1 source) vitamin B12; Translations: [cyanocobalamin] Drug Allergy Unknown (qualifier value) [facility] (1 source) Acetaminophen / HYDROcodone Drug Allergy [facility] (1 source) Corticosteroids Drug allergy (disorder) [facility] (1 source) fentaNYL Drug Allergy [facility] (1 source) Misc-Food; Translations: [Misc-Food] Food allergy (disorder) [facility] (1 source) Corticosteroids Drug allergy (disorder) 05-14-20 18 [facility] Encounters Encounter Date Encounter Type Care Provider Facility Start: 01-10-2024 End: 01-11-2024 ambulatory VALENCIA DE LEÓN Not Available Start: 01-03-2024 End: 01-03-2024 ambulatory Trey Vallejo Facility:[facility] Start: 01-03-2024 End: 01-03-2024 ambulatory CHINO Vallejo Work Phone: [facility] Work Phone: Start: 01-03-2024 End: 01-03-2024 Departed Referred DPM Trey Vallejo Work Phone: [facility] Start: 12-29-2023 End: 12-29-2023 ambulatory RUBÉN GEIGER Not Available Start: 11-29-2023 End: 11-30-2023 ambulatory Andrius Vytautas Luheditis Facility:[facility] Start: 10-18-2023 End: 10-19-2023 ambulatory Andrius Vytautas Luhedraitis Facility:[facility] Start: 09-27-2023 End: 09-27-2023 ambulatory RUBÉN GEIGER Not Available Start: 08-30-2023 End: 08-31-2023 ambulatory Andrius Vytautas Luhedraitis Facility:[facility] Start: 07-12-2023 End: 07-13-2023 ambulatory Andrius Vytautas Luheditis Facility:[facility] Start: 06-14-2023 End: 06-15-2023 ambulatory Andrius Vytautas Gieditis Facility:[facility] Start: 03-11-2023 End: 03-11-2023 ambulatory Rubén Geiger Facility:[facility] Start: 12-06-2022 End: 12-06-[address] VENUS MENDEZ . Facility:[facility] Start: 12-05-2022 Encounter for genera l adult medical examination without abnormal findings DR VENUS MENDEZ . [facility] Start: 12-01-2022 End: 12-02-[address] VENUS [...] encounter procedure Viola Grullon [facility] Start: 01-04-2022 End: 01-05-[address] VENUS MENDEZ . Facility: Start: 01-30-2019 End: 02-01-2019 Evaluation and management of inpatient PROVIDER UNKNOWN Facility:[facility] Start: 08-17-2018 End: 08-18-2018 Patient encounter procedure PROVIDER UNKNOWN Facility:[facility] Medications Current Medications Medication Drug Class(es) Dates [...] Bedtime May 14, 2018 12:00am Vit D3-Folic Ecao-U4-I0-B12 (1 source) Start: 05-14-2018 take 1 tablet by mouth once daily Vit D3-Folic Mcur-S7-G4-B12 Active 1 TAB PO Daily May 14, 2018 12:00am Payers Date Payer Category Payer Self-pay [id number] 2022 Medicaid [id number] 2022 Unknown 1970 Unknown [id number] 2.16.8 [id number] 1970 Unknown [id number] 2.16.8 40.1.836211.3.579.2.647 1970 Unknown [id number] 2.16.84 0.1.111626.3.579.2.593 1970 Unknown [id number] 2.16.84 0.1.526379.3.579.2.593 1970 Unknown [id number] 2.16.84 0.1.809190.3.579.2.593 1970 Unknown [id number] 2.16.84 0.1.782343.3.579.2.593 1970 Unknown [id number] 2.16.84 0.1.926506.3.579.2.593 1970 Unknown [id number] 2.16.84 0.1.070893.3.579.2.593 1970 Unknown [id number] 2.16. 840.1.021916.3.579.2.196 1970 Unknown [id number] 2.16. 840.1.900417.3.579.2.196 1970 Unknown [id number] 2.16. 840.1.973076.3.579.2.196 1970 Unknown [id number] 2.16. 840.1.401641.3.579.2.196 1970 Unknown [id number] 2.16. 840.1.104079.3.579.2.196 1970 Unknown [id number] 2.16.84 0.1.796819.3.579.2.9 1970 Unknown [id number] 2.16.84 0.1.746246.3.579.2.9 1970 Unknown [id number] 2.16.84 0.1.001985.3.579.2.9 1970 Unknown [id number] 2.16.84 0.1.844059.3.579.2.1259 1959 Unknown [id number] Unknown [id number] Unknown [id number] 2.16.8 40.1.169545.3.579.2.531 Unknown [id number] 2.16.8 40.1.885773.3.579.2.531 Problems Active Problems Problem Classification Problem Date [...] Onset: 3 Chronic Other aftercare (1 source) retirement (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; Translations: [[facility] 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 ASPIRIN] Onset: 3 Episodic Other aftercare (1 source) Other mcfp (current) drug therapy; Translations: [OTH [facility] CURRENT DRUG THERAPY] Onset: 3 Episodic Other [...] Translations: [Other muscle spasm] Onset: 03-11-2023 Episodic Procedures Date Procedure Procedure Detail Performing Clinician Start: 12-01-[address] FRANKLIN MENDEZ . Comment on above: Performed By: #### P [facility] #### [facility] [address] [place] [address] Dr. Shabnam Rae Start: 01-30-2019 FUSION CERV JT W INT BD FUS DEV, ANT APPR A COL, OPEN AZEDINE MEDHKOUR Start: 01-30-2019 REMOVAL OF INT FIX F ROM CERVCAL VERTEBRA, OPEN APPROACH AZEDINE MEDHKOUR Start: 01-23-2019 Antibody screen PROVIDE R UNKNOWN Comment on above: Performed By: #### 5 [id number], [id number] #### [facility] [address] Start: 08-17-2018 ANESTH SPINE CORD SURGERY [...] units Performed By: #### 6 [id number] #### [facility] [address] Colonoscopy Viola Grullon Hemorrhoids (disorder) Viola Grullon Hernia of abdominal cavity (disorder) Viola Grullon Tonsillectomy Viola Mitchel Results Test Name Value Interpretation Reference Range Facility [facility] 01-03-2024 L Specimen: [id number] Received: 01/03/24 Status: SOUT Req Num: [id number] Spec Type: Surgical Subm Dr: Trey Vallejo DPM, MS Tissues: A Bone Fragments - Pathologic Fracture (PROXIMAL PHALANX RIGHT HALLU) Procedures: HE/2, Gross/Micro L5, Decalcification Age/ Patient Sex Location Account Attending Physician Matty Garces 53/M LABELL [id number] Trey Vallejo DPM, MS SPEC NUM: [id number] RECD: 01/03/24 STATUS: GIOVANNI JACINTO NUM: [id number] SOFY: 01/03/[address]: Trey Vallejo DPM, [place] ENTERED: 01/03/[address] [facility] [address]: Ayesha Lundberg SPEC TYPE: Surgical DEPT: SEEMA SUAZO ORDERED: [...] Sectioning reveals unremarkable yellow, spongy bone matrix. Finisher Hand sections are submitted in A1 following decal. Clinical history: Non-pressure chronic ulcer . Right hallux IPJ arthroplasty with wound debridement and graft application TW Specimen: [id number] Received: 01/03/24 Status: GIOVANNI Jacinto Num: [id number] Spec Type: Surgical Subm Dr: Trey Vallejo DPM, MS Tissues: A Bone Fragments - Pathologic Fracture (PROXIMAL PHALANX RIGHT HALLU) Procedures: , Gross/Micro L5, Decalcification Patient: Matty Garces [id number] (Continued) Specimen: [id number] Received: 01/03/24 (Continued) Signed (signature on file) Viral Rae MD 01/06/24 1838 Specimen: [id number] Received: 01/03/24 Status: GIOVANNI Jacinto Num: [id number] Spec Type: Surgical Subm Dr: Trey Vallejo DPM, MS Tissues: A Bone Fragments - Pathologic Fracture (PROXIMAL PHALANX RIGHT HALLU) Procedures: , Gross/Micro L5, Decalcification Patient: Matty Garces [id number] (Continued) Specimen: [id number] Received: 01/03/24 (Continued) CPT Codes 42518 Specimen: [id number] Received: 01/03/24 Status: GIOVANNI Jacinto Num: [id number] Spec Type: Surgical Subm Dr: Trey Vallejo,DPM, MS Tissues: A Bone Fragments - Pathologic Fracture (PROXIMAL PHALANX RIGHT HALLU) Procedures: HE/2, Gross/Micro L5, Decalcification Patient: Matty Garces [id number] (Continued) Signed (signature on file) Viral Rae MD 01/06/24 1838 Normal [facility] XR cervical spine 5V*on 02-12 XR cervical spine 5V* [facility] [place] [address] XRay Report Signed Patient: Matty Garces MR#: [id number] 97 : 1970 Acct:[id number] Age/Sex: 52 / M ADM Date: 03/11/23 Loc: ICXD Room: Type: [facility] Attending Dr: Rubén Geiger MD Copies to: [...] Crow Contreras M.D.03/11/2023 3:48 PM Dictation Location: [place] [address] Transcribed By: [facility] 03/11/23 1548 Dictated By: Crow Contreras DO 03/11/23 1544 Signed By: 03/11/23 1548 Normal [facility] CT CSPINE WO CONon CT CSPINE WO [...] by: ANGEL SAID Date: 2022-12-06 06:37 Normal [facility] CT FACIAL BONES WO CONon [...] by: ANGEL SAID Date: 2022-12-06 06:41 Normal [facility] CT HEAD WO CONon 12-06-2022 [...] ANGEL JORDAN Date: 2022-12-06 06:39 Normal [facility] XR ELBOW RT MIN 3 VIEWSon XR ELBOW RT MIN 3 VIEWS Exam: Radiographs: XR ELBOW RT MIN 3 VIEWS Reason for exam: Elbow pain Comparison: None IMPRESSION: Right elbow degenerative changes. Olecranon spur. Remainder of the right elbow is unremarkable. Electronically authenticated by: MICHAEL CASANOVA Date: 2022-12-06 07:22 Normal [facility] XR FOREARM RT 2Von XR FOREARM RT 2V Exam: Radiographs: XR FOREARM RT 2V Reason for exam: Forearm pain Comparison: None IMPRESSION: Mild degenerative changes in the right elbow and wrist. Right forearm is otherwise unremarkable. Electronically authenticated by: MICHAEL CASANOVA Date: 2022-12-06 08:07 Normal [facility] PSA, FREE AND TOTAL RATIOon 12-03-2022 % Free PSA 9.0 % Normal [facility] Comment on above: Result Comment: The table [...] By: #### P SAFREE #### [facility] [address] [place] [address] Dr. Shabnam Rae Prostate specific Ag [Mass/Vol] 5.9 ng/mL Critically high 0.0-4.0 [facility] Comment on above: Result Comment: Tanja [...] By: #### P SAFREE #### [facility] [address] [place] [address] [address] Shabnam Rae PSA, Free 0.53 ng/mL Normal N/A [facility] Comment on above: Result Comment: Tanja ayala ECLIA methodology. Performed By: #### P SAFREE #### [facility] [address] [place] [address] Dr. Shabnam Rae INSULINon 12-02-2022 Insulin 20.2 uIU/mL Normal 2.6-24.9 [facility] Comment on above: Performed By: #### P SASC #### [facility] [address] [place] [address] Dr. Shabnam Rae TESTOSTERONE, TOTALon 2022 Testosterone [Mass/Vol] 256 ng/dL Critically low 264-916 [facility] Comment on above: Result Comment: Adul t male reference interval is based on a population of healthy nonobese males (BMI <30) between 19 and 39 years old. Dima et.al. JCEM 2017,102;6051-7132. PMID: [id number]. Performed By: #### P SASC #### [facility] [address] [address] [address] Shabnam Rae CBC AUTO DIFFon 12-01-2022 BASO # 0.1 103/ul Normal 0.0-0.1 [facility] Comment on above: Performed By: #### P SASC #### [facility] [address] [address] [address] Shabnam Rae Basophils/100 WBC (Bld) 1.0 % Normal 0.2-2.0 [facility] Comment on above: Performed By: #### P SASC #### [facility] [address] [address] [address] Shabnam Rae EO # 0.1 103/ul Normal 0.0-0.7 [facility] Comment on above: Performed By: #### P SASC #### [facility] [address] [address] [address] Shabnam Rae Eosinophils/100 WBC (Bld) 1.8 % Normal 0.9-7.0 [facility] Comment on above: Performed By: #### P SASC #### [facility] [address] [address] [address] Shabnam Rae Erythrocyte distribution width (RBC) [Ratio] 14.8 % Normal 11.0-15.0 [facility] Comment on above: Performed By: #### P SASC #### [facility] [address] [place] [address] Dr. Shabnam Rae Hematocrit (Bld) [Volume fraction] 49.9 % Normal 42.0-54.0 [facility] Comment on above: Performed By: #### P SASC #### [facility] [address] [place] [address] Dr. Shabnam Rae Hemoglobin (Bld) [Mass/Vol] 16.0 g/dL Normal 14.0-18.0 [facility] Comment on above: Performed By: #### P SASC #### [facility] [address] [place] [address] Dr. Shabnam Rae IG # 0.04 10e3/ul Critically high 0.00-0.03 [facility] Comment on above: Performed By: #### P SASC #### [facility] [address] [place] [address] Dr. Shabnam Rae IG % 0.6 % Critically high 0.0-0.5 [facility] Comment on above: Performed By: #### P SASC #### [facility] [address] [place] [address] Dr. Shabnam Rae LYMPH # 1.0 103/ul Critically low 1.2-3.8 [facility] Comment on above: Performed By: #### P SASC #### [facility] [address] [place] [address] Dr. Shabnam Rae Lymphocytes/100 WBC (Bld) 16.2 % Critically low 20.5-60.0 [facility] Comment on above: Performed By: #### P SASC #### [facility] [address] [place] [address] Dr. Shabnam Rae MANUAL DIFF REQ NO Normal [facility] Comment on above: Performed By: #### P SASC #### [facility] [address] [address] [address] Shabnam Rae MCH (RBC) [Entitic mass] 27.7 pg Normal 25.9-34.0 [facility] Comment on above: Performed By: #### P SASC #### [facility] [address] [place] [address] Dr. Shabnam Rae MCHC (RBC) [Mass/Vol] 32.1 g/dL Normal 29.9-35.2 [facility] Comment on above: Performed By: #### P SASC #### [facility] [address] [place] [address] Dr. Shabnam Rae MCV (RBC) [Entitic vol] 86.3 fL Normal 80.0-94.0 [facility] Comment on above: Performed By: #### P SASC #### [facility] [address] [place] [address] Dr. Shabnam Rae MONO # 0.5 103/ul Normal 0.3-0.8 [facility] Comment on above: Performed By: #### P SASC #### [facility] [address] [place] [address] Dr. Shabnam Rae Monocytes/100 WBC (Bld) 7.6 % Normal 1.7-12.0 [facility] Comment on above: Performed By: #### P SASC #### [facility] [address] [place] [address] Dr. Shabnam Rae NEUT # 4.6 103/ul Normal 1.4-6.5 [facility] Comment on above: Performed By: #### P SASC #### [facility] [address] [address] [address] Shabnam Rae Neutrophils/100 WBC (Bld) 72.8 % Normal 43.0-75.0 [facility] Comment on above: Performed By: #### P SASC #### [facility] [address] [address] [address] Shabnam Rae Platelet mean volume (Bld) [Entitic vol] 9.8 fL Normal 9.5-13.5 [facility] Comment on above: Performed By: #### P SASC #### [facility] [address] [address] [address] Shabnam Rae PLT 203 103/ul Normal 150-450 [facility] Comment on above: Performed By: #### P SASC #### [facility] [address] [address] [address] Shabnam Rae RBC 5.78 106/ul Normal 4.70-6.10 [facility] Comment on above: Performed By: #### P SASC #### [facility] [address] [address] [address] Shabnam Rae WBC 6.3 103/ul Normal 4.0-11.0 [facility] Comment on above: Performed By: #### P SASC #### [facility] [address] [address] [address] Shabnam Rae FREE THYROXINE INDEX T7on FTI 2.05 Normal 1.30-4.50 [facility] Comment on above: Performed By: #### T SH, CMP, LIPID, T7, URIC #### [facility] [address] [address] [address] Shabnam Rae T3U 33.0 % Normal 33.0-40.0 [facility] Comment on above: Performed By: #### T SH, CMP, LIPID, T7, URIC #### [facility] [address] [address] [address] Shabnam Rae T4 [Mass/Vol] 6.20 ug/dL Normal 4.50-12.10 [facility] Comment on above: Performed By: #### T SH, CMP, LIPID, T7, URIC #### [facility] [address] [address] [address] Shabnam Rae GLYCOHEMOGLOBIN A1Con 2022 ADA RECOMMENDATION SEE BELOW Normal [facility] Comment on above: Result Comment: ADA RECOMMENDED LIMIT 4.0 - 6.0 ADA THERAPEUTIC TARGET < 7.0 ACTION SUGGESTED > 7.0 Performed By: #### P SASC #### [facility] [address] [address] [address] Shabnam Rae Glucose [Mass/Vol] 114 mg/dL Normal [facility] Comment on above: Performed By: #### P SASC #### [facility] [address] [address] [address] Shabnam Rae HbA1c (Bld) [Mass fraction] 5.6 % Normal 4.5-6.2 [facility] Comment on above: Performed By: #### P SASC #### [facility] [address] [address] [address] Shabnam Rae LIPID PROFILEon 12-01-2022 CHOL-HDL RATIO NORM SEE BELOW Normal [facility] Comment on above: Result Comment: 3.3 - 4.4 LOW RISK 4.4 - 7.1 AVERAGE RISK 7.1 - 11.0 MODERATE RISK >11.0 HIGH RISK Performed By: #### T SH, CMP, LIPID, T7, URIC #### [facility] [address] [address] [address] Shabnam Rae Cholesterol [Mass/Vol] 176 mg/dL Normal <=200 [facility] Comment on above: Performed By: #### T SH, CMP, LIPID, T7, URIC #### [facility] [address] [address] [address] Shabnam Rae Cholesterol in HDL [Mass/Vol] 48 mg/dL Normal 40-60 [facility] Comment on above: Performed By: #### T SH, CMP, LIPID, T7, URIC #### [facility] [address] [address] [address] Shabnam Rae Cholesterol in LDL [Mass/Vol] 108.2 mg/dL Normal [facility] Comment on above: Performed By: #### T SH, CMP, LIPID, T7, URIC #### [facility] [address] [place] [address] Dr. Shabnam Rae Cholesterol.total/Ch olesterol in HDL [Mass ratio] 3.7 {ratio} Normal [facility] Comment on above: Performed By: #### T SH, CMP, LIPID, T7, URIC #### [facility] [address] [address] [address] Shabnam Rae HDL NORMAL > or = 60 mg/dl - LOW CARDIOVASCULAR RISK <40 mg/dl - HIGH CARDIOVASCULAR RISK Normal [facility] Comment on above: Performed By: #### T SH, CMP, LIPID, T7, URIC #### [facility] [address] [place] [address] Dr. Shabnam Rae LDL CALC NORMAL SEE BELOW Normal [facility] Comment on above: Result Comment: <100 mg/dl OPTIMAL 100 - 129 mg/dl NEAR OR ABOVE OPTIMAL 130 - 159 mg/dl BORDERLINE HIGH 160 - 189 mg/dl HIGH >190 mg/dl VERY HIGH Performed By: #### T SH, CMP, LIPID, T7, URIC #### [facility] [address] [place] [address] Dr. Shabnam Rae Triglyceride [Mass/Vol] 99 mg/dL Normal <=150 [facility] Comment on above: Performed By: #### T SH, CMP, LIPID, T7, URIC #### [facility] [address] [place] [address] Dr. Shabnam Rae VLDL CALC 19.8 mg/dL Normal [facility] Comment on above: Performed By: #### T SH, CMP, LIPID, T7, URIC #### [facility] [address] [place] [address] Dr. Shabnam Rae PROF 14(COMP METB)on 023 Albumin [Mass/Vol] 4.1 g/dL Normal 3.4-5.0 [facility] Comment on above: Performed By: #### T SH, CMP, LIPID, T7, URIC #### [facility] [address] [place] [address] Dr. Shabnam Rae Albumin/Globulin [Mass ratio] 1.1 {ratio} Normal [facility] Comment on above: Performed By: #### T SH, CMP, LIPID, T7, URIC #### [facility] [address] [place] [address] Dr. Shabnam Rae ALP [Catalytic activity/Vol] 101 U/L Normal 46-116 [facility] Comment on above: Performed By: #### T SH, CMP, LIPID, T7, URIC #### [facility] [address] [place] [address] Dr. Shabnam Rae ALT [Catalytic activity/Vol] 26 U/L Normal 16-63 [facility] Comment on above: Performed By: #### T SH, CMP, LIPID, T7, URIC #### [facility] [address] [place] [address] Dr. Shabnam Rae Anion gap [Moles/Vol] 10.1 mmol/L Normal [facility] Comment on above: Performed By: #### T SH, CMP, LIPID, T7, URIC #### [facility] [address] [place] [address] Dr. Shabnam Rae AST [Catalytic activity/Vol] 19 U/L Normal 15-37 [facility] Comment on above: Performed By: #### T SH, CMP, LIPID, T7, URIC #### [facility] Laboratory [address] [place] [address] Dr. Shabnam Rae Bilirubin [Mass/Vol] 0.8 mg/dL Normal 0.2-1.0 [facility] Comment on above: Performed By: #### T SH, CMP, LIPID, T7, URIC #### [facility] Laboratory [address] [place] [address] Dr. Shabnam Rae Calcium [Mass/Vol] 9.5 mg/dL Normal 8.5-10.1 [facility] Comment on above: Performed By: #### T SH, CMP, LIPID, T7, URIC #### [facility] Laboratory [address] [place] [address] Dr. Shabnam Rae Chloride [Moles/Vol] 102 mmol/L Normal 98-107 [facility] Comment on above: Performed By: #### T SH, CMP, LIPID, T7, URIC #### [facility] Laboratory [address] [address] [address] Shabnam Rae CO2 [Moles/Vol] 32.4 mmol/L Critically high 21.0-32.0 [facility] Comment on above: Performed By: #### T SH, CMP, LIPID, T7, URIC #### [facility] Laboratory [address] [address] [address] Shabnam Rae Creatinine [Mass/Vol] 1.00 mg/dL Normal 0.70-1.30 [facility] Comment on above: Performed By: #### T SH, CMP, LIPID, T7, URIC #### [facility] Laboratory [address] [place] [address] Dr. Shabnam Rae EGFR-AF LIBYAN >60 Normal >=60 [facility] Comment on above: Performed By: #### T SH, CMP, LIPID, T7, URIC #### [facility] Laboratory [address] [place] [address] Dr. Shabnam Rae EGFR-NON AF LIBYAN >60 Normal >=60 [facility] Comment on above: Performed By: #### T SH, CMP, LIPID, T7, URIC #### [facility] Laboratory [address] [place] [address] Dr. Shabnam Rae Globulin (S) [Mass/Vol] 3.8 g/dL Normal [facility] Comment on above: Performed By: #### T SH, CMP, LIPID, T7, URIC #### [facility] Laboratory [address] [address] [address] Shabnam Rae Glucose [Mass/Vol] 94 mg/dL Normal 74-106 [facility] Comment on above: Performed By: #### T SH, CMP, LIPID, T7, URIC #### [facility] Laboratory [address] [address] [address] Shabnam Rae Potassium [Moles/Vol] 3.5 mmol/L Normal 3.5-5.1 [facility] Comment on above: Performed By: #### T SH, CMP, LIPID, T7, URIC #### [facility] Laboratory [address] [address] [address] Shabnam Rae Protein [Mass/Vol] 7.9 g/dL Normal 6.4-8.2 [facility] Comment on above: Performed By: #### T SH, CMP, LIPID, T7, URIC #### [facility] Laboratory [address] [place] [address] Dr. Shabnam Rae Sodium [Moles/Vol] 141 mmol/L Normal 136-145 [facility] Comment on above: Performed By: #### T SH, CMP, LIPID, T7, URIC #### [facility] Laboratory [address] [place] [address] Dr. Shabnam Rae Urea nitrogen [Mass/Vol] 15.0 mg/dL Normal 7.0-18.0 [facility] Comment on above: Performed By: #### T SH, CMP, LIPID, T7, URIC #### [facility] Laboratory [address] [place] [address] Dr. Shabnam Rae Urea nitrogen/Creatinine [Mass ratio] 15.0 mg/mg Normal [facility] Comment on above: Performed By: #### T SH, CMP, LIPID, T7, URIC #### [facility] Laboratory [address] [place] [address] Dr. Shabnam Rae TSHon 12-01-2022 TSH 1.504 uIU/mL Normal 0.358-3.740 [facility] Comment on above: Performed By: #### T SH, CMP, LIPID, T7, URIC #### [facility] Laboratory [address] [place] [address] Dr. Shabnam Rae URIC ACID SERUMon 12-01-2022 Urate [Mass/Vol] 6.9 mg/dL Normal 3.5-7.2 [facility] Comment on above: Performed By: #### T SH, CMP, LIPID, T7, URIC #### [facility] Laboratory [address] [place] [address] Dr. Shabnam Rae TESTOSTERONE, TOTALon 2021 Testosterone [Mass/Vol] 244 ng/dL Critically low 264-916 [facility] Comment on above: Result Comment: Adul t male reference interval is based on a population of healthy nonobese males (BMI <30) between 19 and 39 years old. Travbrad, et.al. JCEM 2017,102;6187-0893. PMID: [id number]. Performed By: #### P SAFREE #### [facility] Laboratory [address] [address] [address] Shabnam Rae TESTOSTERONE, FREE,DIRECT, T OTALon 03-16-2022 Free Testosterone(Direct) 2.1 pg/mL Critically low 7.2-24.0 [facility] Comment on above: Result Comment: Perf ormed at: BN Performed By: #### C VDTBH #### [facility] Laboratory [address] [place] [address] Dr. Shabnam Rae Testosterone [Mass/Vol] 252 ng/dL Critically low 264-916 [facility] Comment on above: Result Comment: Adul t male reference interval is based on a population of healthy nonobese males (BMI <30) between 19 and 39 years old. Travbrad, et.al. JCEM 2017,102;8083-7078. PMID: [id number]. Performed at: CB Performed By: #### C VDTBH #### [facility] Laboratory [address] [place] [address] Dr. Shabnam Rae Formson 02-26-2022 Forms [id number] 7#1.00CD:127 Normal [facility] Screenson 02-26-2022 Screens [id number] #1.00CD:127 Normal [facility] Screens [id number] 7#1.00CD:127 Normal [facility] Urology Office/Clinic [...] 02/25/2022 11:15:58. . Documentation recorded by the noelleiblucy, Helen Leung, accurately reflects the services(s) I [...] Urnls Dip Stick Auto w/o Microscopy POC 42833 Your Care Team Attending Physician - Viola [...] Urnls Dip Stick Auto w/o Microscopy POC 64509 (02/25/2022) Bilirubin Urine Dipstick - Negative Blood Urine Dipstick - Negative Glucose Urine Dipstick - Negative Ketones Urine Dipstick - Negative Leukocytes Urine Dipstick - Negative Nitrite Urine Dipstick - Negative Protein Urine Dipstick - Negative Specific [place] Urine Dipstick - >=1.030 Urine Appearance Urine [...] the hydrocele for any changes. ? Take fxpx-snc-xqwtrsa and prescription medicines only as told by [...] intended t (more content not included)... Normal [facility] Patient Educationon 02-26-20 Patient Education [...] the hydrocele for any changes. ? Take kyqz-sad-uedciev and prescription medicines only as told by [...] Reviewed: 09/10/2018 Elsevier Patient Education ? 2019 [employer] 3D. Normal [facility] ED Note-Physicianon 02-04-20 ED Note-Physician [id number] 62#1.00CD:127 Normal [facility] RAD - Ultrasound Reporton RAD - Ultrasound Report [id number] #1.00CD:127 [facility] RAD - CT Reporton 02-02-2022 RAD - CT Report [id number] 75#1.00CD:127 [facility] RAD - CT Report [id number] 55#1.00CD:127 [facility] CBC AUTO DIFFon 01-05-2022 BASO # 0.0 103/ul Normal 0.0-0.1 [facility] Comment on above: Performed By: #### P SAFREE #### [facility] Laboratory [address] [place] [address] Dr. Shabnam Rae Basophils/100 WBC (Bld) 0.6 % Normal 0.2-2.0 [facility] Comment on above: Performed By: #### P SAFREE #### [facility] Laboratory [address] [place] [address] Dr. Shabnam Rae EO # 0.1 103/ul Normal 0.0-0.7 [facility] Comment on above: Performed By: #### P SAFREE #### [facility] Laboratory [address] [place] [address] Dr. Shabnam Rae Eosinophils/100 WBC (Bld) 2.1 % Normal 0.9-7.0 [facility] Comment on above: Performed By: #### P SAFREE #### [facility] Laboratory [address] [place] [address] Dr. Shabnam Rae Erythrocyte distribution width (RBC) [Ratio] 13.1 % Normal 11.0-15.0 [facility] Comment on above: Performed By: #### P SAFREE #### [facility] Laboratory [address] [place] [address] Dr. Shabnam Rae Hematocrit (Bld) [Volume fraction] 43.1 % Normal 42.0-54.0 [facility] Comment on above: Performed By: #### P SAFREE #### [facility] Laboratory [address] [place] [address] Dr. Shabnam Rae Hemoglobin (Bld) [Mass/Vol] 13.7 g/dL Critically low 14.0-18.0 [facility] Comment on above: Performed By: #### P SAFREE #### [facility] Laboratory [address] [place] [address] Dr. Shabnam Rae IG # 0.04 10e3/ul Critically high 0.00-0.03 [facility] Comment on above: Performed By: #### P SAFREE #### [facility] Laboratory [address] [place] [address] Dr. Shabnam Rae IG % 0.6 % Critically high 0.0-0.5 [facility] Comment on above: Performed By: #### P SAFREE #### [facility] Laboratory [address] [place] [address] Dr. Shabnam Rae LYMPH # 0.9 103/ul Critically low 1.2-3.8 [facility] Comment on above: Performed By: #### P SAFREE #### [facility] Laboratory [address] [place] [address] Dr. Shabnam Rae Lymphocytes/100 WBC (Bld) 13.1 % Critically low 20.5-60.0 [facility] Comment on above: Performed By: #### P SAFREE #### [facility] Laboratory [address] [place] [address] Dr. Shabnam Rae MANUAL DIFF REQ NO Normal [facility] Comment on above: Performed By: #### P SAFREE #### [facility] Laboratory [address] [place] [address] Dr. Shabnam Rae MCH (RBC) [Entitic mass] 29.5 pg Normal 25.9-34.0 [facility] Comment on above: Performed By: #### P SAFREE #### [facility] Laboratory [address] [place] [address] Dr. Shabnam Rae MCHC (RBC) [Mass/Vol] 31.8 g/dL Normal 29.9-35.2 [facility] Comment on above: Performed By: #### P SAFREE #### [facility] Laboratory [address] [place] [address] Dr. Shabnam Rae MCV (RBC) [Entitic vol] 92.9 fL Normal 80.0-94.0 [facility] Comment on above: Performed By: #### P SAFREE #### [facility] Laboratory [address] [place] [address] Dr. Shabnam Rae MONO # 0.4 103/ul Normal 0.3-0.8 [facility] Comment on above: Performed By: #### P SAFREE #### [facility] Laboratory [address] [place] [address] Dr. Shabnam Rae Monocytes/100 WBC (Bld) 5.4 % Normal 1.7-12.0 [facility] Comment on above: Performed By: #### P SAFREE #### [facility] Laboratory [address] [place] [address] Dr. Shabnam Rae NEUT # 5.2 103/ul Normal 1.4-6.5 [facility] Comment on above: Performed By: #### P SAFREE #### [facility] Laboratory [address] [place] [address] Dr. Shabnam Rae Neutrophils/100 WBC (Bld) 78.2 % Critically high 43.0-75.0 [facility] Comment on above: Performed By: #### P SAFREE #### [facility] Laboratory [address] [address] [address] Shabnam Rae Platelet mean volume (Bld) [Entitic vol] 10.9 fL Normal 9.5-13.5 [facility] Comment on above: Performed By: #### P SAFREE #### [facility] Laboratory [address] [place] [address] Dr. Shabnam Rae PLT 153 103/ul Normal 150-450 [facility] Comment on above: Performed By: #### P SAFREE #### [facility] Laboratory [address] [place] [address] Dr. Shabnam Rae RBC 4.64 106/ul Critically low 4.70-6.10 [facility] Comment on above: Performed By: #### P SAFREE #### [facility] Laboratory [address] [place] [address] Dr. Shabnam Rae WBC 6.6 103/ul Normal 4.0-11.0 [facility] Comment on above: Performed By: #### P SAFREE #### [facility] Laboratory [address] [place] [address] Dr. Shabnam Rae CRPon 01-05-2022 CRP 0.9 mg/dL Normal <=1.0 [facility] Comment on above: Performed By: #### P SAFREE #### [facility] Laboratory [address] [place] [address] Dr. Shabnam Rae PROF 14(COMP METB)on 022 Albumin [Mass/Vol] 3.6 g/dL Normal 3.4-5.0 [facility] Comment on above: Performed By: #### P SAFREE #### [facility] Laboratory [address] [place] [address] Dr. Shbanam Rae Albumin/Globulin [Mass ratio] 1.0 {ratio} Normal [facility] Comment on above: Performed By: #### P SAFREE #### [facility] Laboratory [address] [address] [address] Shabnam Rae ALP [Catalytic activity/Vol] 114 U/L Normal 46-116 [facility] Comment on above: Performed By: #### P SAFREE #### [facility] Laboratory [address] [place] [address] Dr. Shabnam Rae ALT [Catalytic activity/Vol] 26 U/L Normal 16-63 [facility] Comment on above: Performed By: #### P SAFREE #### [facility] Laboratory [address] [place] [address] Dr. Shabnam Rae Anion gap [Moles/Vol] 9.3 mmol/L Normal [facility] Comment on above: Performed By: #### P SAFREE #### [facility] Laboratory [address] [place] [address] Dr. Shabnam Rae AST [Catalytic activity/Vol] 19 U/L Normal 15-37 [facility] Comment on above: Performed By: #### P SAFREE #### [facility] Laboratory [address] [place] [address] Dr. Shabnam Rae Bilirubin [Mass/Vol] 0.5 mg/dL Normal 0.2-1.0 [facility] Comment on above: Performed By: #### P SAFREE #### [facility] Laboratory [address] [place] [address] Dr. Shabnam Rae Calcium [Mass/Vol] 8.9 mg/dL Normal 8.5-10.1 [facility] Comment on above: Performed By: #### P SAFREE #### [facility] Laboratory [address] [place] [address] Dr. Shabnam Rae Chloride [Moles/Vol] 106 mmol/L Normal 98-107 [facility] Comment on above: Performed By: #### P SAFREE #### [facility] Laboratory [address] [place] [address] Dr. Shabnam Rae CO2 [Moles/Vol] 30.7 mmol/L Normal 21.0-32.0 [facility] Comment on above: Performed By: #### P SAFREE #### [facility] Laboratory [address] [place] [address] Dr. Shabnam Rae Creatinine [Mass/Vol] 1.15 mg/dL Normal 0.70-1.30 [facility] Comment on above: Performed By: #### P SAFREE #### [facility] Laboratory [address] [address] [address] Shabnam Rae EGFR-AF LIBYAN >60 Normal >=60 [facility] Comment on above: Performed By: #### P SAFREE #### [facility] Laboratory [address] [address] [address] Shabnam Rae EGFR-NON AF LIBYAN >60 Normal >=60 [facility] Comment on above: Performed By: #### P SAFREE #### [facility] Laboratory [address] [address] [address] Shabnam Rae Globulin (S) [Mass/Vol] 3.6 g/dL Normal [facility] Comment on above: Performed By: #### P SAFREE #### [facility] Laboratory [address] [address] [address] Shabnam Rae Glucose [Mass/Vol] 117 mg/dL Critically high 74-106 [facility] Comment on above: Performed By: #### P SAFREE #### [facility] Laboratory [address] [address] [address] Shabnam Rae Potassium [Moles/Vol] 4.0 mmol/L Normal 3.5-5.1 [facility] Comment on above: Performed By: #### P SAFREE #### [facility] Laboratory [address] [address] [address] Shabnam Rae Protein [Mass/Vol] 7.2 g/dL Normal 6.1-8.2 [facility] Comment on above: Performed By: #### P SAFREE #### [facility] Laboratory [address] [address] [address] Shabnam Rae Sodium [Moles/Vol] 142 mmol/L Normal 136-145 [facility] Comment on above: Performed By: #### P SAFREE #### [facility] Laboratory [address] [address] [address] Shabnam Rae Urea nitrogen [Mass/Vol] 15.0 mg/dL Normal 7.0-18.0 [facility] Comment on above: Performed By: #### P SAFREE #### [facility] Laboratory [address] [address] [address] Shabnam Rae Urea nitrogen/Creatinine [Mass ratio] 13.0 mg/mg Normal [facility] Comment on above: Performed By: #### P SAFREE #### [facility] Laboratory [address] [address] [address] Shabnam Rae US SCROTUMon 01-05-2022 US [...] by: ALVINA CAICEDO Date: 2022-01-05 08:48 Normal [facility] CBC AUTO DIFFon 01-04-2022 BASO # 0.1 103/ul Normal 0.0-0.1 [facility] Comment on above: Performed By: #### C BC #### [facility] Laboratory [address] [place] [address] Dr. Shabnam Rae Basophils/100 WBC (Bld) 0.8 % Normal 0.2-2.0 [facility] Comment on above: Performed By: #### C BC #### [facility] Laboratory [address] [place] [address] Dr. Shabnam Rae EO # 0.1 103/ul Normal 0.0-0.7 [facility] Comment on above: Performed By: #### C BC #### [facility] Laboratory [address] [place] [address] Dr. Shabnam Rae Eosinophils/100 WBC (Bld) 1.5 % Normal 0.9-7.0 [facility] Comment on above: Performed By: #### C BC #### [facility] Laboratory [address] [place] [address] Dr. Shabnam Rae Erythrocyte distribution width (RBC) [Ratio] 12.8 % Normal 11.0-15.0 [facility] Comment on above: Performed By: #### C BC #### [facility] Laboratory [address] [place] [address] Dr. Shabnam Rae Hematocrit (Bld) [Volume fraction] 40.3 % Critically low 42.0-54.0 [facility] Comment on above: Performed By: #### C BC #### [facility] Laboratory [address] [place] [address] Dr. Shabnam Rae Hemoglobin (Bld) [Mass/Vol] 13.4 g/dL Critically low 14.0-18.0 [facility] Comment on above: Performed By: #### C BC #### [facility] Laboratory [address] [place] [address] Dr. Shabnam Rae IG # 0.03 10e3/ul Normal 0.00-0.03 [facility] Comment on above: Performed By: #### C BC #### [facility] Laboratory [address] [place] [address] Dr. Shabnam Rae IG % 0.5 % Normal 0.0-0.5 [facility] Comment on above: Performed By: #### C BC #### [facility] Laboratory [address] [place] [address] Dr. Shabnam Rae LYMPH # 1.0 103/ul Critically low 1.2-3.8 [facility] Comment on above: Performed By: #### C BC #### [facility] Laboratory [address] [place] [address] Dr. Shabnam Rae Lymphocytes/100 WBC (Bld) 16.4 % Critically low 20.5-60.0 [facility] Comment on above: Performed By: #### C BC #### [facility] Laboratory [address] [place] [address] Dr. Shabnam Rae MANUAL DIFF REQ NO Normal [facility] Comment on above: Performed By: #### C BC #### [facility] Laboratory [address] [place] [address] Dr. Shabnam Rae MCH (RBC) [Entitic mass] 29.5 pg Normal 25.9-34.0 [facility] Comment on above: Performed By: #### C BC #### [facility] Laboratory [address] [place] [address] Dr. Shabnam Rae MCHC (RBC) [Mass/Vol] 33.3 g/dL Normal 29.9-35.2 [facility] Comment on above: Performed By: #### C BC #### [facility] Laboratory [address] [place] [address] Dr. Shabnam Rae MCV (RBC) [Entitic vol] 88.8 fL Normal 80.0-94.0 [facility] Comment on above: Performed By: #### C BC #### [facility] Laboratory [address] [place] [address] Dr. Shabnam Rae MONO # 0.6 103/ul Normal 0.3-0.8 [facility] Comment on above: Performed By: #### C BC #### [facility] Laboratory [address] [place] [address] Dr. Shabnam Rae Monocytes/100 WBC (Bld) 9.6 % Normal 1.7-12.0 [facility] Comment on above: Performed By: #### C BC #### [facility] Laboratory [address] [place] [address] Dr. Shabnam Rae NEUT # 4.4 103/ul Normal 1.4-6.5 [facility] Comment on above: Performed By: #### C BC #### [facility] Laboratory [address] [address] [address] Shabnam aRe Neutrophils/100 WBC (Bld) 71.2 % Normal 43.0-75.0 [facility] Comment on above: Performed By: #### C BC #### [facility] Laboratory [address] [address] [address] Shabnam Rae Platelet mean volume (Bld) [Entitic vol] 10.8 fL Normal 9.5-13.5 [facility] Comment on above: Performed By: #### C BC #### [facility] Laboratory [id number] Shabnam Rae PLT 158 103/ul Normal 150-450 [facility] Comment on above: Performed By: #### C BC #### [facility] Laboratory [address] [place] [address] Dr. Shabnam Rae RBC 4.54 106/ul Critically low 4.70-6.10 [facility] Comment on above: Performed By: #### C BC #### [place] [facility] [id number] Shabnam Rae WBC 6.2 103/ul Normal 4.0-11.0 [facility] Comment on above: Performed By: #### C BC #### [facility] [address] [place], [place] [id number] Dr. Shabnam Rae CT ABD/PELV W CONon [...] Date: 2022-01-04 05:19 Normal [facility] CT PELVIS WO CONon CT PELVIS WO [...] MANUEL BRENNANH Date: 2022-01-04 08:54 Normal [facility] CULTURE URINEon 01-04-2022 CULTURE URINE Culture Observations: No growth Normal [facility] Comment on above: Performed By: #### P [facility] #### [facility] [address] [place] [address] Dr. Shabnam Rae Covid-19 PCR ([facility])on 12-13 SARS-CoV-2 (COVID-19) RNA ELIJAH+probe Ql (Unsp spec) Not detected Normal NOT DETECTED [facility] Comment on above: Result Comment: When diagnostic testing is negative, the possibility of a false negative should be considered in the context of a patient's recent exposures and the presence of clinical signs and symptoms consistent with SARS-CoV-2. This test is not yet approved or cleared by the [place] Food and Drug Administration (FDA). This test was developed by [employer], [place], [place]. The performance characteristics of this test were validated by [facility]. The results are not intended to be used as the sole means for clinical diagnosis or patient management decisions. The [facility] is authorized under Clinical Laboratory Improvement Amendments [...] for this test is supported by the [place] of Health and Human Service's declaration that [...] By: #### C VDTBH #### [facility] [address] [place] [address] Dr. Shabnam Rae ER URINE PROFILEon 2 Bilirubin Ql (U) Negative Normal NEGATIVE [facility] Comment on above: Performed By: #### P SASC #### [facility] [address] [place] [address] Dr. Shabnam Rae Clarity (U) CLEAR Normal CLEAR [facility] Comment on above: Performed By: #### P SASC #### [facility] [address] [place] [address] Dr. Shabnam Rae Color (U) YELLOW Normal YELLOW [facility] Comment on above: Performed By: #### P SASC #### [facility] [address] [place] [address] Dr. Shabnam Rae ERUSarah A micrscopic examination will be performed if indicated. Normal [facility] Comment on above: Performed By: #### P SASC #### [facility] [address] [place] [address] Dr. Shabnam Rae Glucose Ql (U) Negative Normal NEGATIVE [facility] Comment on above: Performed By: #### P SASC #### [facility] [address] [place] [address] Dr. Shabnam Rae Hemoglobin Ql (U) Negative Normal NEGATIVE [facility] Comment on above: Performed By: #### P SASC #### [facility] [address] [place] [address] Dr. Shabnam Rae Ketones Ql (U) Negative Normal NEGATIVE [facility] Comment on above: Performed By: #### P SASC #### [facility] [address] [place] [address] Dr. Shabnam Rae LEUKOCYTES Negative Normal NEGATIVE [facility] Comment on above: Performed By: #### P SASC #### [facility] [address] [place] [address] Dr. Shabnam Rae Nitrite Ql (U) Negative Normal NEGATIVE [facility] Comment on above: Performed By: #### P SASC #### [facility] [address] [place] [address] Dr. Shabnam Rae pH (U) 6.5 [pH] Normal 5-9 [facility] Comment on above: Performed By: #### P SASC #### [facility] [address] [place] [address] Dr. Shabnam Rae SPEC GRAVITY 1.010 Normal 1.005-<=1.025 [facility] Comment on above: Performed By: #### P SASC #### [facility] [address] [place] [address] Dr. Shabnam Rae UA PROTEIN Negative Normal NEGATIVE/ TRACE [facility] Comment on above: Performed By: #### P SASC #### [facility] [address] [place] [address] Dr. Shabnam Rae UR MICRO IND NOT INDICATED Normal [facility] Comment on above: Performed By: #### P SASC #### [facility] [address] [place] [address] Dr. Shabnam Rae Urobilinogen Qn (U) 0.2 {Sarai'U}/dL Normal 0.2 - 1. 0 [facility] Comment on above: Performed By: #### P SASC #### [facility] [address] [place] [address] Dr. Shabnam Rae LACTATE/LACTIC ACIDon 2021 Lactate [Moles/Vol] 1.0 mmol/L Normal 0.4-2.0 [facility] Comment on above: Performed By: #### P SASC #### [facility] [address] [place] [address] Dr. Shabnam Rae PROF CHEM 8 (BAS METB)on Anion gap [Moles/Vol] 10.0 mmol/L Normal [facility] Comment on above: Performed By: #### B MP #### [facility] [address] [address] [address] Shabnam Rae Calcium [Mass/Vol] 8.5 mg/dL Normal 8.5-10.1 [facility] Comment on above: Performed By: #### B MP #### [facility] [address] [address] [address] Shabnam Rae Chloride [Moles/Vol] 103 mmol/L Normal 98-107 [facility] Comment on above: Performed By: #### B MP #### [facility] [address] [address] [address] Shabnam Rae CO2 [Moles/Vol] 29.2 mmol/L Normal 21.0-32.0 [facility] Comment on above: Performed By: #### B MP #### [facility] [address] [address] [address] Shabnam Rae Creatinine [Mass/Vol] 1.25 mg/dL Normal 0.70-1.30 [facility] Comment on above: Performed By: #### B MP #### [facility] [address] [address] [address] Shabnam Rae EGFR-AF LIBYAN >60 Normal >=60 [facility] Comment on above: Performed By: #### B MP #### [facility] [address] [place] [address] Dr. Shabnam Rae EGFR-NON AF LIBYAN >60 Normal >=60 [facility] Comment on above: Performed By: #### B MP #### [facility] [address] [address] [address] Shabnam Rae Glucose [Mass/Vol] 132 mg/dL Critically high 74-106 [facility] Comment on above: Performed By: #### B MP #### [facility] [address] [address] [address] hSabnam Rae Potassium [Moles/Vol] 3.2 mmol/L Critically low 3.5-5.1 [facility] Comment on above: Performed By: #### B MP #### [facility] [address] [address] [address] Shabnam Rae Sodium [Moles/Vol] 139 mmol/L Normal 136-145 [facility] Comment on above: Performed By: #### B MP #### [facility] [address] [address] [address] Shabnam Rae Urea nitrogen [Mass/Vol] 19.0 mg/dL Critically high 7.0-18.0 [facility] Comment on above: Performed By: #### B MP #### [facility] [address] [address] [address] Shabnam Rae Urea nitrogen/Creatinine [Mass ratio] 15.2 mg/mg Normal [facility] Comment on above: Performed By: #### B MP #### [facility] [address] [address] [address] Shabnam Rae CERVICAL SPINE 2 OR 3 Son 07-06-2019 CERVICAL SPINE 2 OR 3 [facility] Department of Radiology [address] [place] [id number] Patient Name: MATTY GARCES : 1970 Sex: M Age: Race: White Pt. Location: Patient Status: O Ordered Date: 07/06/2019 9:10:00 AM Completed Date: 07/06/2019 09:21 AM Requesting Provider: LUCIANO VIEIRA Attending Provider: LUCAINO VIEIRA Report Copy To: VENUS MENDEZ Signs & Symptoms: M48.02 Spinal stenosis, cervical region I10 History: Althea Comments: , STAT READ , STAT READ , , , Ordering Provider - ULCIANO VIEIRA MD , Exam: CERVICAL SPINE 2 OR 3 [facility] CERVICAL SPINE 2 OR 3 [facility] 07/06/2019 9:21 AM EDT SIGNS AND SYMPTOMS: [...] findings. Electronically signed by:Bernice Hoyt. Transcribed by: [email or web address], User Resident: RADHA CHIN Electronically Signed by: BERNICE HOYT @ 07/06/2019 08:52 PM I personally read this/these film(s) with this resident Normal [facility] Comment on above: Order Comment: , STA T READ , STAT READ , , , Ordering Provider - LUCIANO VIEIRA MD , CERVICAL SPINE 2 OR 3 [facility] 04-06-2019 CERVICAL SPINE 2 OR 3 [facility] Department of Radiology [address] [place] [address] Patient Name: MATTY GARCES [...] FALLS Exam: CERVICAL SPINE 2 OR 3 [facility] CERVICAL SPINE 2 OR 3 [facility] 04/06/2019 7:28 AM EDT SIGNS [...] study. Electronically signed by:Bernice Hoyt. Transcribed by: [email or web address], User Resident: Electronically Signed by: BERNICE HOYT @ 04/06/2019 04:40 PM Normal [facility] Comment on above: Order Comment: AP/LA T, ODONTOID PLEASE DO SWIMMER'S VIEW FOLLOW UP HARDWARE AND ALIGNMENT, S/P ACDF, RECENT FALLS CERVICAL SPINE 2 OR 3 [facility] 02-17-2019 CERVICAL SPINE 2 OR 3 [facility] Department of Radiology [address] [place] [phone] Patient Name: MATTY GARCES : 1970 [...] findings. Electronically signed by:Bella King. Transcribed by: [email or web address], User Resident: EMILE TINAJERO Electronically Signed by: BELLA KING @ 02/20/2019 11:53 AM I personally read this/these film(s) with this resident Normal [facility] Comment on above: Order Comment: C-SPI NE 2 OR 3 VIEW POSTOP, EVALUATION HARDWARE AN ALIGNMENT BASIC METABOLIC PANELon 05-2 Calcium [Mass/Vol] 9.2 mg/dL Normal 8.6-10.3 [facility] Comment on above: Order Comment: No: D o not add to previous draw Performed By: #### 5 0103 #### [facility] [address] [place] [address], [place] Chloride [Moles/Vol] 101 mmol/L Normal 98-107 [facility] Comment on above: Order Comment: No: D o not add to previous draw Performed By: #### 5 0103 #### [facility] [address] [place] [address], [place] CO2 [Moles/Vol] 26 mmol/L Normal 21-31 [facility] Comment on above: Order Comment: No: D o not add to previous draw Performed By: #### 5 0103 #### [facility] [address] [place] [address], [place] Creatinine [Mass/Vol] 1.02 mg/dL Normal 0.70-1.30 [facility] Comment on above: Order Comment: No: D o not add to previous draw Performed By: #### 5 0103 #### [facility] [address] [place] [address], [place] GFR/1.73 sq M predicted among blacks MDRD (S/P/Bld) [Vol rate/Area] mL/min/{1.73_m2} Normal >60 [facility] Comment on above: Order Comment: No: D o not add to previous draw Performed By: #### 5 0103 #### [facility] [address] [place] [address], [place] GFR/1.73 sq M predicted among non-blacks MDRD (S/P/Bld) [Vol rate/Area] mL/min/{1.73_m2} Normal >60 [facility] Comment on above: Order Comment: No: D o not add to previous draw Performed By: #### 5 0103 #### [facility] [address] [place] [address], [place] Glucose [Mass/Vol] 124 mg/dL High 70-100 [facility] Comment on above: Order Comment: No: D o not add to previous draw Performed By: #### 5 0103 #### [facility] [address] [place] [address], [place] Potassium [Moles/Vol] 3.9 mmol/L Normal 3.5-5.1 [facility] Comment on above: Order Comment: No: D o not add to previous draw Performed By: #### 5 0103 #### [facility] [address] [place] [address], [place] Sodium [Moles/Vol] 137 mmol/L Normal 136-145 [facility] Comment on above: Order Comment: No: D o not add to previous draw Performed By: #### 5 0103 #### [facility] [address] [place] [address], [facility] Urea nitrogen [Mass/Vol] 15 mg/dL Normal 7-25 [facility] Comment on above: Order Comment: No: D o not add to previous draw Performed By: #### 5 0103 #### [facility] [address] [place] [address], [facility] CBC COMPLETE BLOOD COUNT- Erythrocyte distribution width (RBC) [Ratio] 13.9 % Normal 11.5-15.0 [facility] Comment on above: Order Comment: No: D o not add to previous draw Performed By: #### 5 0103 #### [facility] [address] [place] [id number], [facility] Hematocrit (Bld) [Volume fraction] 50.0 % Normal 39.0-50.0 [facility] Comment on above: Order Comment: No: D o not add to previous draw Performed By: #### 5 0103 #### [facility] [address] [place] [address], [facility] Hemoglobin (Bld) [Mass/Vol] 16.0 g/dL Normal 13.0-17.0 [facility] Comment on above: Order Comment: No: D o not add to previous draw Performed By: #### 5 0103 #### [facility] [address] [place] [address], [place] MCH (RBC) [Entitic mass] 27.5 pg Normal 27.0-33.0 [facility] Comment on above: Order Comment: No: D o not add to previous draw Performed By: #### 5 0103 #### [facility] [address] MCHC (RBC) [Mass/Vol] 32.0 g/dL Normal 32.0-35.0 [facility] Comment on above: Order Comment: No: D o not add to previous draw Performed By: #### 5 0103 #### [facility] [address] [place] [address], [facility] MCV (RBC) [Entitic vol] 85.9 fL Normal 82.0-98.0 [facility] Comment on above: Order Comment: No: D o not add to previous draw Performed By: #### 5 0103 #### [facility] [address] [place] [address], [facility] Nucleated RBC/100 WBC (Bld) [Ratio] 0 % Normal 0-0 [facility] Comment on above: Order Comment: No: D o not add to previous draw Performed By: #### 5 0103 #### [facility] [address] [place] [address], [facility] PLAT CNT 249 10*3/uL Normal 150-400 [facility] Comment on above: Order Comment: No: D o not add to previous draw Performed By: #### 5 0103 #### [facility] [address] [place] [address], [facility] RBC (Bld) [#/Vol] 5.82 10*6/uL High 4.20-5.70 [facility] Comment on above: Order Comment: No: D o not add to previous draw Performed By: #### 5 0103 #### [facility] [address] [place] [id number], [facility] WBC (Bld) [#/Vol] 15.85 10*3/uL High 4.00-10.60 [facility] Comment on above: Order Comment: No: D o not add to previous draw Performed By: #### 5 0103 #### [facility] [address] [place] [id number] Operative Reporton 9 Operative Report MR#: [id number] I [facility] Pt. Name: Matty Garces Room #: [id number] Discharge Date: Birthdate: 1970 OPERATIVE REPORT DATE OF SURGERY: 01/30/2019 SURGEON: Luciano Vieira M.D. 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 POSTOPERATIVE DIAGNOSIS: Failed instrumentation at C6-7 on the right. MAGAZINE FILLER: ADENIKE Lugo. ANESTHESIA: Endotracheal, Hogan. PROCEDURES: Redo [...] Norma/Luciano Vieira M.D. Date Trans: 01/31/2019 02:31 A/sasha [id number] cc: Venus Mendez M.D. [address] [id number] [facility] CERVICAL SPINE 2 OR 3 [facility] 01-30-2019 CERVICAL SPINE 2 OR 3 [facility] Department of Radiology [address] [place] [phone] Patient Name: MATTY GARCES : 1970 [...] documentation Electronically signed by:Justus Montano. Transcribed by: [email or web address], User Resident: Electronically Signed by: JUSTUS MONTANO @ 01/30/2019 04:18 PM Normal [facility] Comment on above: Order Comment: C6-7 ACDF POC GLUCOSE LABon 01-30-2019 Glucose [Mass/Vol] 106 mg/dL High 70-100 [facility] Comment on above: Performed By: #### 5 0103 #### [facility] [address] *MRSA/MSSA DNA NASALon 01-23 *MRSA/MSSA DNA NASAL Clinical Report: (D ) Specimen: NASAL SWAB Collected: 01/23/2019 15:02 Status: Final Last Updated: 01/23/2019 20:14 MSSA DNA (Final) Methicillin Susceptible Staphylococcus aureus DNA Detected MRSA DNA (Final) No Methicillin Resistant Staphylococcus aureus DNA Detected Normal [facility] Comment on above: Performed By: #### 5 0103 #### [facility] [address] APTTon 01-23-2019 aPTT Coag (Bld) [Time] 35.4 s High 25.0-35.0 [facility] Comment on above: Result Comment: ALL [...] THIS PURPOSE. Performed By: #### 5 7307, 59349 #### [facility] [address] [place] [address], [facility] BASIC METABOLIC PANELon 01-11 Calcium [Mass/Vol] 9.5 mg/dL Normal 8.6-10.3 [facility] Comment on above: Performed By: #### 5 7307, 54376 #### [facility] [address] [place] [address], [place] Chloride [Moles/Vol] 101 mmol/L Normal 98-107 [facility] Comment on above: Performed By: #### 5 73, 86538 #### [facility] [address] [place] [address], [place] CO2 [Moles/Vol] 29 mmol/L Normal 21-31 [facility] Comment on above: Performed By: #### 5 7307, 15582 #### [facility] [address] [place] [address], [place] Creatinine [Mass/Vol] 1.08 mg/dL Normal 0.70-1.30 [facility] Comment on above: Performed By: #### 5 7307, 98668 #### [facility] [address] [place] [address], [place] GFR/1.73 sq M predicted among blacks MDRD (S/P/Bld) [Vol rate/Area] mL/min/{1.73_m2} Normal >60 [facility] Comment on above: Performed By: #### 5 7307, 44537 #### [facility] [address] GFR/1.73 sq M predicted among non-blacks MDRD (S/P/Bld) [Vol rate/Area] mL/min/{1.73_m2} Normal >60 [facility] Comment on above: Performed By: #### 5 7307, 36545 #### [facility] [address] [place] [address], [facility] Glucose [Mass/Vol] 87 mg/dL Normal 70-100 [facility] Comment on above: Performed By: #### 5 7306, 96901 #### [facility] [address] Potassium [Moles/Vol] 4.0 mmol/L Normal 3.5-5.1 [facility] Comment on above: Performed By: #### 5 73, 92278 #### [facility] [address] [facility] [address] Sodium [Moles/Vol] 137 mmol/L Normal 136-145 [facility] Comment on above: Performed By: #### 5 7307, 40243 #### [facility] [address] [facility]. [address] Urea nitrogen [Mass/Vol] 12 mg/dL Normal 7-25 [facility] Comment on above: Performed By: #### 5 7307, 60138 #### [facility] [address] [facility] [address] CBC W/DIFFon 01-23-2019 ABS BASOPHILS 0.1 10*3/uL Normal 0.0-0.2 [facility] Comment on above: Performed By: #### 5 7307, 67956 #### [facility] [address] [place] [address], [facility] ABS IMM GRANS 0.0 10*3/uL Normal 0.0-0.2 [facility] Comment on above: Performed By: #### 5 7306, 43228 #### [facility] [address] [place] [address], [facility] ABS NEUTROPHILS 5.3 10*3/uL Normal 1.6-7.6 [facility] Comment on above: Performed By: #### 5 7306, 65894 #### [facility] [address] [place] [address], [facility] Basophils/100 WBC (Bld) 0.9 % Normal 0.0-1.0 [facility] Comment on above: Performed By: #### 7306, 68764 #### [facility] [address] [place] [address], [facility] Eosinophils (Bld) [#/Vol] 0.2 10*3/uL Normal 0.0-0.5 [facility] Comment on above: Performed By: #### 7306, 71660 #### [facility] [address] [place] [address], [facility] Eosinophils/100 WBC (Bld) 2.3 % Normal 0.0-6.0 [facility] Comment on above: Performed By: #### 5 7306, 42212 #### [facility] [address] [place] [id number], [facility] Erythrocyte distribution width (RBC) [Ratio] 13.8 % Normal 11.5-15.0 [facility] Comment on above: Performed By: #### 5 7306, 10932 #### [facility] [address] [place] [address], [place] Hematocrit (Bld) [Volume fraction] 49.6 % Normal 39.0-50.0 [facility] Comment on above: Performed By: #### 5 73, 00016 #### [facility] [address] [place] [address], [facility] Hemoglobin (Bld) [Mass/Vol] 16.4 g/dL Normal 13.0-17.0 [facility] Comment on above: Performed By: #### 5 7306, 61677 #### [facility] [address] [facility] [place] [address], [facility] IMMATURE GRANS 0.5 % Normal 0.0-1.0 [facility] Comment on above: Performed By: #### 5 7306, 05735 #### [facility] [address] [place] [address], [facility] Lymphocytes (Bld) [#/Vol] 1.2 10*3/uL Normal 1.2-4.0 [facility] Comment on above: Performed By: #### 5 7306, 82854 #### [facility] [address] [facility] [place] [address], [facility] Lymphocytes/100 WBC (Bld) 16.6 % Low 20.0-45.0 [facility] Comment on above: Performed By: #### 5 7306, 69022 #### [facility] [address] [facility] [place] [address], [facility] MCH (RBC) [Entitic mass] 27.8 pg Normal 27.0-33.0 [facility] Comment on above: Performed By: #### 5 7306, 63335 #### [facility] [address] [facility] [place] [address], [facility] MCHC (RBC) [Mass/Vol] 33.1 g/dL Normal 32.0-35.0 [facility] Comment on above: Performed By: #### 5 7306, 40418 #### [facility] [address] [facility] [place] [address], [facility] MCV (RBC) [Entitic vol] 84.2 fL Normal 82.0-98.0 [facility] Comment on above: Performed By: #### 5 7306, 10914 #### [facility] [address] [place] [address], [facility] Monocytes (Bld) [#/Vol] 0.7 10*3/uL Normal 0.1-1.0 [facility] Comment on above: Performed By: #### 5 7306, 91872 #### [facility] [address] [place] [id number], [facility] MONOS 9.4 % Normal 5.0-12.0 [facility] Comment on above: Performed By: #### 5 7306, 73170 #### [facility] [address] [place] [address], [facility] Neutrophils/100 WBC (Bld) 70.3 % Normal 40.0-72.0 [facility] Comment on above: Performed By: #### 5 7306, 19920 #### [facility] [address] [place] [address], [facility] Nucleated RBC/100 WBC (Bld) [Ratio] 0 % Normal 0-0 [facility] Comment on above: Performed By: #### 5 7306, 33848 #### [facility] [address] [place] [address], [facility] PLAT CNT 235 10*3/uL Normal 150-400 [facility] Comment on above: Performed By: #### 5 7306, 90518 #### [facility] [address] [place] [address], [facility] RBC (Bld) [#/Vol] 5.89 10*6/uL High 4.20-5.70 [facility] Comment on above: Performed By: #### 5 7306, 84603 #### [facility] [address] [place] [id number], [facility] WBC (Bld) [#/Vol] 7.48 10*3/uL Normal 4.00-10.60 [facility] Comment on above: Performed By: #### 5 73, 12042 #### [facility] [address] PROTHROMBIN TIMEon 9 INR Coag (PPP) [Relative time] 1.12 {INR} Normal 0.91-1.16 [facility] Comment on above: Result Comment: ACCC [...] CHEST 1995;108:231S-246S. Performed By: #### 5 7307, 65734 #### [facility] [address] [place] [address], [facility] PT Coag (PPP) [Time] 14.4 s Normal 12.3-14.8 [facility] Comment on above: Result Comment: ALL RESULTS MUST BE INTERPRETED WITH RESPECT TO BLOOD DRAWING ARTIFACT OR DILUTION ERROR OF ANTICOAGULANT AT THE TIME OF SAMPLING. Performed By: #### 5 7307, 84051 #### [facility] [address] [place] [address], [facility] TYPE AND SCREENon 01-23-2019 ABO INTERPRETATION A Normal [facility] Comment on above: Performed By: #### 5 7307, 79959 #### [facility] [address] [place] [address], [facility] RH INTERPRETATION Positive Normal [facility] Comment on above: Performed By: #### 5 7307, 52734 #### [address] 3D CERVICAL SPINE WO CONT RASTon 01-12-2019 CT 3D CERVICAL SPINE WO CONTRAST [facility] Department of Radiology [address] [place] [phone] Patient Name: MATTY GARCES : 1970 Sex: M Age: Race: White Pt. Location: Patient Status: D Ordered Date: 01/10/2019 2:15:00 PM Completed Date: 01/12/2019 10:32 AM Requesting Provider: LUCIANO VIEIRA Attending Provider: LUCIANO VIEIRA Report Copy To: VENUS MENDEZ Signs & Symptoms: M48.02 Spinal stenosis, cervical region I10 History: [facility] para auth # [id number] 01/10/19-02/09/19 [id number] *er Comments: Exam: CT 3D CERVICAL SPINE [...] incomplete Electronically signed by:Ten Garland. Transcribed by: [id number], User Resident: Electronically Signed by: TEN GARLAND @ 01/13/2019 09:18 AM Normal [facility] CERVICAL SPINE 2 OR 3 [facility] 01-05-2019 CERVICAL SPINE 2 OR 3 [facility] Department of Radiology [address] [place] [phone] Patient Name: MATTY GARCES : 1970 Sex: M Age: Race: White Pt. Location: Patient Status: O Ordered Date: 01/05/2019 9:00:00 AM Completed Date: 01/05/2019 09:06 AM Requesting Provider: LUCIANO VIEIRA Attending Provider: LUCIANO VIEIRA Report Copy To: Signs & Symptoms: M48.02 Spinal stenosis, cervical region I10 History: [facility] Comments: , , , Ordering Provider - LUCIANO VIEIRA MD , Exam: CERVICAL SPINE 2 OR 3 V[facility] CERVICAL SPINE 2 OR 3 [facility] 01/05/2019 9:06 AM EDT SIGNS AND SYMPTOMS: [...] findings. Electronically signed by:Ten Garland. Transcribed by: [email or web address], User Resident: SHELLY DELA CRUZ Electronically Signed by: TEN GARLAND @ 01/05/2019 12:37 PM I personally read this/these film(s) with this resident Normal [facility] Comment on above: Order Comment: , , = ========= , Ordering Provider - LUCIANO VIEIRA MD , CERVICAL SPINE 2 OR 3 Son 08-30-2018 CERVICAL SPINE 2 OR 3 VWS [facility] Department of Radiology [address] [place] [phone] Patient Name: MATTY GARCES : 1970 [...] , Exam: CERVICAL SPINE 2 OR 3 [facility] CERVICAL SPINE 2 OR 3 VWS 08/30/2018 [...] findings. Electronically signed by:Bella King. Transcribed by: [email or web address], User Resident: RYAN HEAD Electronically Signed by: BELLA KING @ 08/30/2018 05:45 PM I personally read this/these film(s) with this resident Normal [facility] Comment on above: Order Comment: , POS T OP XRAY AP/LAT ONLY , POST OP XRAY AP/LAT ONLY , , , Ordering Provider - LUCIANO VIEIRA MD , Operative Reporton 8 Operative Report MR#: [id number] I [facility] Pt. Name: Matty Garces Room #: 5CD [id number] Discharge Date: Birthdate: 1970 OPERATIVE REPORT DATE OF SURGERY: 08/17/2018 SURGEON: Luciano Vieira M.D. PREOPERATIVE DIAGNOSIS: Herniated cervical disk at C6-7. POSTOPERATIVE DIAGNOSIS: Herniated cervical disk at C6-7. MAGAZINE FILLER: ADENIKE Larios. ANESTHESIA: Endotracheal, Braida. PROCEDURE: Anterior [...] size 8. l. Plate size 17 mm. mMarilee RADHA. ESTIMATED BLOOD LOSS: Minimal. OPERATIVE INDICATION: [...] P/Luciano Vieira M.D. Date Trans: 08/17/2018 11:25 P/mmo [id number] cc: Venus Mendez M.D. [address], [facility] [place] [address] [facility] CERVICAL SPINE 2 OR 3 [facility] 08-17-2018 CERVICAL SPINE 2 OR 3 [facility] Department of Radiology [address] [place] [phone] Patient Name: MATTY GARCES : 1970 Sex: M Age: Race: White Pt. Location: Patient Status: I Ordered Date: 08/17/2018 8:30:00 AM Completed Date: 08/17/2018 11:49 AM Requesting Provider: LUCIANO VIEIRA Attending Provider: LUCIANO VIEIRA Report Copy To: Signs & Symptoms: C6-7 ACDF with History: C6-7 ACDF with Comments: C6-7 ACDF with Exam: CERVICAL SPINE 2 OR 3 S CERVICAL SPINE 2 OR 3 VWS 08/17/2018 [...] findings. Electronically signed by:Bernice Hoyt. Transcribed by: [email or web address], User Resident: EMILE TINAJERO Electronically Signed by: BERNICE HOYT @ 08/18/2018 01:06 PM I personally read this/these film(s) with this resident Normal [facility] Comment on above: Order Comment: C6-7 ACDF with POC GLUCOSE LABon 08-17-2018 Glucose [Mass/Vol] 113 mg/dL High 70-100 [facility] Comment on above: Performed By: #### 8 5499 #### [facility] [address] [place] [address], [place] RBC'S 2 UNITSon 08-17-2018 CROSSMATCH INTERP 1 COMP Normal The [facility] Comment on above: Performed By: #### 8 6002 #### [facility] [address] [place] [address], [place] CROSSMATCH INTERP 2 COMP Normal The U [facility] Comment on above: Performed By: #### 8 6002 #### [facility] [address] [place] [address], [facility] PRODUCT CODE 1 E0336 Normal The [facility] Comment on above: Performed By: #### 8 6002 #### [facility] [address] [place] [address], [place] PRODUCT CODE 2 E0336 Normal [facility] Comment on above: Performed By: #### 8 6002 #### [facility] [address] [place] [address], [facility] PRODUCT STATUS 1 RE Normal The [facility] Comment on above: Result Comment: Resu lt changed by IF on 08/20/2018 07:48. The previous value was XM. Performed By: #### 8 6002 #### [facility] [address] [place] [address], [facility] PRODUCT STATUS 2 RE Normal The [facility] Comment on above: Result Comment: Resu lt changed by IF on 08/20/2018 07:48. The previous value was XM. Performed By: #### 8 6002 #### [facility] [address] [place] [address], [facility] UNIT ABO 1 A Normal [facility] Comment on above: Performed By: #### 8 6002 #### [facility] [address] [place] [address], [facility] UNIT ABO 2 A Normal [facility] Comment on above: Performed By: #### 8 6002 #### [facility] [address] [place] [address], [place] UNIT ID 1 [id number] Normal The [facility] Comment on above: Performed By: #### 8 6002 #### [facility] [address] [place] [address], [facility] UNIT ID 2 [id number] Normal [facility] Comment on above: Performed By: #### 8 6002 #### [facility] [address] [place] [address], [facility] UNIT RH 1 Positive Normal [facility] Comment on above: Performed By: #### 8 6002 #### [facility] [address] [address], [facility] UNIT RH 2 Positive Normal [facility] Comment on above: Performed By: #### 8 6002 #### [facility] [address] [facility] [address] *MRSA/MSSA CULTUREon 018 *MRSA/MSSA CULTURE Clinical Report: (D) Specimen: NASAL SWAB Collected: 08/02/2018 12:37 Status: Final Last Updated: 08/03/2018 14:26 ISO (Final) No Methicillin Resistant Staphylococcus aureus Isolated (MRSA) ISO (Final) Methicillin Sensitive Staphylococcus aureus (MSSA) Isolated Normal [facility] Comment on above: Performed By: #### 3 1302 #### [facility] [address] [facility] APTTon 08-02-2018 aPTT Coag (Bld) [Time] 31.2 s Normal 25.0-35.0 [facility] Comment on above: Result Comment: ALL [...] THIS PURPOSE. Performed By: #### 5 7307, 95405 #### [facility] [address] [facility] BASIC METABOLIC PANELon 07-15 Calcium [Mass/Vol] 9.4 mg/dL Normal 8.6-10.3 [facility] Comment on above: Performed By: #### 0 0071 #### [facility] [address] [place] [address], [place] Chloride [Moles/Vol] 103 mmol/L Normal 98-107 [facility] Comment on above: Performed By: #### 0 0071 #### [facility] [address] [place] [address], [place] CO2 [Moles/Vol] 29 mmol/L Normal 21-31 [facility] Comment on above: Performed By: #### 0 0071 #### [facility] [address] [place] [address], [place] Creatinine [Mass/Vol] 1.06 mg/dL Normal 0.70-1.30 [facility] Comment on above: Performed By: #### 0 0071 #### [facility] [address] [place] [address], [place] GFR/1.73 sq M predicted among blacks MDRD (S/P/Bld) [Vol rate/Area] mL/min/{1.73_m2} Normal >60 [facility] Comment on above: Performed By: #### 0 0071 #### [facility] [address] [place] [address], [place] GFR/1.73 sq M predicted among non-blacks MDRD (S/P/Bld) [Vol rate/Area] mL/min/{1.73_m2} Normal >60 [facility] Comment on above: Performed By: #### 0 0071 #### [facility] [address] [place] [address], [place] Glucose [Mass/Vol] 84 mg/dL Normal 70-100 [facility] Comment on above: Performed By: #### 0 0071 #### [facility] [address] [place] [address], [place] Potassium [Moles/Vol] 4.0 mmol/L Normal 3.5-5.1 [facility] Comment on above: Performed By: #### 0 0071 #### [facility] [address] [place] [address], [facility] Sodium [Moles/Vol] 140 mmol/L Normal 136-145 [facility] Comment on above: Performed By: #### 0 0071 #### [facility] [address] Urea nitrogen [Mass/Vol] 20 mg/dL Normal 7-25 [facility] Comment on above: Performed By: #### 0 0071 #### [facility] [address] [place] [address], [facility] CBC W/DIFFon 08-02-2018 ABS BASOPHILS 0.1 10*3/uL Normal 0.0-0.2 [facility] Comment on above: Performed By: #### 5 0103 #### [facility] [address] [facility] ABS IMM GRANS 0.1 10*3/uL Normal 0.0-0.2 [facility] Comment on above: Performed By: #### 5 3 #### [facility] [address] ABS NEUTROPHILS 4.2 10*3/uL Normal 1.6-7.6 The [facility] Comment on above: Performed By: #### 5 3 #### [facility] [address] Basophils/100 WBC (Bld) 1.3 % High 0.0-1.0 [facility] Comment on above: Performed By: #### 5 102 #### [facility] [address] [place] [address], [facility] Eosinophils (Bld) [#/Vol] 0.1 10*3/uL Normal 0.0-0.5 [facility] Comment on above: Performed By: #### 5 0103 #### [facility] [address] [place] [address], [facility] Eosinophils/100 WBC (Bld) 2.0 % Normal 0.0-6.0 [facility] Comment on above: Performed By: #### 5 3 #### [facility] [address] [place] [address], [facility] Erythrocyte distribution width (RBC) [Ratio] 13.6 % Normal 11.5-15.0 [facility] Comment on above: Performed By: #### 5 3 #### [facility] [address] [place] [address], [facility] Hematocrit (Bld) [Volume fraction] 44.3 % Normal 39.0-50.0 [facility] Comment on above: Performed By: #### 5 3 #### [facility] [address] [facility] Hemoglobin (Bld) [Mass/Vol] 15.1 g/dL Normal 13.0-17.0 [facility] Comment on above: Performed By: #### 5 0103 #### [facility] [address] [place] [address], [facility] IMMATURE GRANS 1.1 % High 0.0-1.0 [facility] Comment on above: Performed By: #### 5 3 #### [facility] [address] [place] [address], [facility] Lymphocytes (Bld) [#/Vol] 1.2 10*3/uL Normal 1.2-4.0 [facility] Comment on above: Performed By: #### 5 3 #### [facility] [address] [place] [address], [facility] Lymphocytes/100 WBC (Bld) 18.3 % Low 20.0-45.0 [facility] Comment on above: Performed By: #### 5 0103 #### [facility] [address] [place] [address], [facility] MCH (RBC) [Entitic mass] 29.0 pg Normal 27.0-33.0 [facility] Comment on above: Performed By: #### 5 3 #### [facility] [address] [facility] [place] [address], [facility] MCHC (RBC) [Mass/Vol] 34.1 g/dL Normal 32.0-35.0 [facility] Comment on above: Performed By: #### 0103 #### [facility] [address] [place] [address], [facility] MCV (RBC) [Entitic vol] 85.0 fL Normal 82.0-98.0 [facility] Comment on above: Performed By: #### 5 3 #### [facility] [address] [facility] [address], [facility] Monocytes (Bld) [#/Vol] 0.7 10*3/uL Normal 0.1-1.0 [facility] Comment on above: Performed By: #### 5 3 #### [facility] [address] [place] [address], [facility] MONOS 11.1 % Normal 5.0-12.0 [facility] Comment on above: Performed By: #### 5 3 #### [facility] [address] Neutrophils/100 WBC (Bld) 66.2 % Normal 40.0-72.0 [facility] Comment on above: Performed By: #### 5 3 #### [facility] [address] [place] [address], [facility] Nucleated RBC/100 WBC (Bld) [Ratio] 0 % Normal 0-0 [facility] Comment on above: Performed By: #### 5 3 #### [facility] [address] [facility] [address] PLAT CNT 179 10*3/uL Normal 150-400 [facility] Comment on above: Performed By: #### 5 0103 #### [facility] [address] [place] [address], [facility] RBC (Bld) [#/Vol] 5.21 10*6/uL Normal 4.20-5.70 [facility] Comment on above: Performed By: #### 5 0103 #### [facility] [address] [place] [address], [facility] WBC (Bld) [#/Vol] 6.39 10*3/uL Normal 4.00-10.60 [facility] Comment on above: Performed By: #### 5 0103 #### [facility] [address] CERVICAL SPINE 4 OR 5 VIEWSo n 08-02-2018 CERVICAL SPINE 4 OR 5 VIEWS [facility] Department of Radiology [address] [place] [phone] Patient Name: MATTY GARCES : 1970 Sex: M Age: Race: White Pt. Location: Patient Status: D Ordered Date: 08/02/2018 1:05:00 PM Completed Date: 08/02/2018 01:29 PM Requesting Provider: LUCIANO VIEIRA Attending Provider: LUCIANO VIEIRA Report Copy To: VENUS MENDEZ Signs & Symptoms: Z01.89 Encounter for other specified special examinations I10 History: [facility] Comments: , PREOP XRAY AP/LAT \EANDE\ FLEX/EX [...] findings. Electronically signed by:Bella King. Transcribed by: [email or web address], User Resident: EMILE TINAJERO Electronically Signed by: BELLA KING @ 08/03/2018 11:58 AM I personally read this/these film(s) with this resident Normal [facility] Comment on above: Order Comment: , PRE OP XRAY AP/LAT \EANDE\ FLEX/EX , PREOP XRAY AP/LAT \EANDE\ FLEX/EX , , , Ordering Provider - LUCIANO VIEIRA MD , PROTHROMBIN TIMEon 8 INR Coag (PPP) [Relative time] 1.15 {INR} Normal 0.91-1.16 [facility] Comment on above: Result Comment: [facility] P RECOMMENDED INR FOR WARFARIN THERAPY ------- [...] CHEST 1995;108:231S-246S. Performed By: #### 5 7307, 55494 #### [facility] [address] PT Coag (PPP) [Time] 14.7 s Normal 12.3-14.8 [facility] Comment on above: Result Comment: ALL RESULTS MUST BE INTERPRETED WITH RESPECT TO BLOOD DRAWING ARTIFACT OR DILUTION ERROR OF ANTICOAGULANT AT THE TIME OF SAMPLING. Performed By: #### 5 7307, 36003 #### [facility] [address] [place] [address], [facility] TYPE AND SCREENon 08-02-2018 ABO INTERPRETATION A Normal [facility] Comment on above: Order Comment: 2 uni ts 2 units 2 units 2 units 2 units Performed By: #### 6 2586 #### [facility] [address] [facility] [place] [address], [place] RH INTERPRETATION Positive Normal [facility] Comment on above: Order Comment: 2 uni ts 2 units 2 units 2 units 2 units Performed By: #### 6 2586 #### [facility] [address] [facility] [address] URINALYSIS REFLEXon 08-02-20 18 Appearance (U) CLEAR Normal CLEAR [facility] Comment on above: Performed By: #### 3 0965 #### [facility] [address] [place] [address], [facility] Bilirubin [Mass/Vol] Negative Normal NEGATIVE [facility] Comment on above: Performed By: #### 3 0965 #### [facility] [address] [place] [address], [facility] BLOOD Negative Normal NEGATIVE [facility] Comment on above: Performed By: #### 3 0965 #### [facility] [address] [facility] Color (U) YELLOW Normal YELLOW [facility] Comment on above: Performed By: #### 3 0965 #### [facility] [address] [place] [address], [facility] Glucose [Mass/Vol] 150 mg/dL Abnormal NEGATIVE [facility] Comment on above: Performed By: #### 3 0965 #### [facility] [address] [place] [address], [facility] KETONE Negative Normal NEGATIVE [facility] Comment on above: Performed By: #### 3 0965 #### [facility] [address] [place] [address], [facility] [place] Negative Normal NEGATIVE [facility] Comment on above: Performed By: #### 3 0965 #### [facility] [address] [place] [address], [facility] MICRO NOT DONE negative chemical reactions unless requested in original order Normal [facility] Comment on above: Performed By: #### 3 0965 #### [facility] [address] [place] [address], [facility] Nitrite Ql (U) Negative Normal NEGATIVE [facility] Comment on above: Performed By: #### 3 0965 #### [facility] [address] [place] [address], [facility] pH (Bld) 5.0 Normal 5.0-8.0 [facility] Comment on above: Performed By: #### 3 0965 #### [facility] [address] [place] [address], [facility] Protein (U) [Mass/Vol] Negative Normal NEGATIVE [facility] Comment on above: Performed By: #### 3 0965 #### [facility] [address] [place] [address], [facility] SPEC GRAV 1.024 High 1.015-1.020 [facility] Comment on above: Performed By: #### 3 0965 #### [facility] [address] [facility] 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 Clinician Molly bunn 02-25-2022 10:30-0400 Blood Pressure Location Viola Grullon [facility] 02-25-2022 10:30-0400 Diastolic blood pressure 107 mm[Hg] Viola Grullon [facility] 02-25-2022 10:30-0400 Heart rate 74 /min Viola Thrashere [facility] 02-25-2022 10:30-0400 Respiratory rate 16 /min Viola Lue [facility] 02-25-2022 10:30-0400 Systolic blood pressure 157 mm[Hg] Viola Lue [facility] [employer] Functional Status Date Assessment Result Facility 02-25-2022 Functional Status N/A [facility] [employer] Progress note 06-09-2023 Note Date & Type Note Facility 06-09-2023 Note [facility] Continue GDMT- Diuretic therapy Monitor daily weights, I&O, fluid restriction 1.5-2L/day, renal function and electrolytes- [facility] Clinical Note 03-26-2022 Note Date & [...] authenticated by: ALVINA CAICEDO Date: 2022-03-26 10:47 [facility] Discharge instructions 02-25-2022 Note Date & [...] Watch the hydrocele for any changes. Take efgg-tlh-[id number] and prescription medicines only as told by [...] 02/17/2011 Document Revised: 09/10/2018 Document Reviewed: 09/10/2018 [employer] Patient Education 2020 [employer]. Follow Up Care 01/28/2022 10:36:35 With:Mitchel DELGADO, Viola Cohn URL, URO Address: When: Unknown [facility] Evaluation + Plan note Note Date & Type Note Facility Evaluation + Plan note No data available for this section [facility] Evaluation note Note Date & Type Note Facility Evaluation note No assessment information availa [facility] Work Phone: Progress note Note Date & Type Note Facility Progress note No data available for this section [facility] Summary Purpose Family History No Family History Records FoundNo Family History Records FoundNo Family History Records FoundNo Family History Records FoundNo Family History Records FoundNo Family History Records FoundNo Family History Records Found Advance Directives No Advanced Directives Records Found Advance Directive Response Recorded Date/ Time Advance Directives No May 12:42pm Hospital Course Note MR#: [id number] [facility] Pt. Name: Matty Garces Admitted: 01/30/2019 [...] content) DATE CREATED AUTHOR 07/19/2019 [facility] DATE CREATED AUTHOR AUTHOR'S ORGANIZ ATION 02/27/2022 [facility] DATE CREATED AUTHOR AUTHOR'S ORGANIZ ATION 12/08/2022 [facility] DATE CREATED AUTHOR AUTHOR'S ORGANIZ ATION 06/17/2023 [facility] DATE CREATED AUTHOR AUTHOR'S ORGANIZ ATION 12/03/2023 [facility] DATE CREATED AUTHOR AUTHOR'S ORGANIZ ATION 01/08/2024 [facility] DATE CREATED AUTHOR AUTHOR'S ORGANIZ ATION 01/15/2024 [facility] Care Team (unrecognized sect ion and [...] THE PRIMARY CLINICAL RECORDS. [facility] [employer] provides no warranty or guarantee of the accuracy or completeness of information in this document.
== END 2024-02-21 16:40 | disposition home or self-care (01) ==
LOC: WC 16:39
PROVIDERS: PCP Family Medicine; Visit Provider Physician Assistant
DX: E11.621 Type 2 diabetes mellitus with foot ulcer (principal); L97.512 Non-pressure chronic ulcer of other part of right foot with fat layer exposed
CPT/HCPCS: 11043

== ENCOUNTER 2024-03-01 12:58 | Outpatient (OUT) | payer MEDICAID, SELFPAY ==
--- NOTE | 2024-03-01 13:04 | PM.CN ---
Consult Note: HPI Data of Consult Patient: known to practice within the last 3 years Consult date: 06/14/23 Requesting Physician: Nicole Acevedo NP Primary Care Provider: Caden Mendez MD Consult Narrative Reason for consult: chronic pain Narrative: 52yom who presents for assessment. notes increasing neck pain, worsened with activity weather changes and sleep. engaged in >6 weeks of provider directed home exercises, with minimal benefit. Patient finds no benefit to tylenol and ibuprofen, has failed celebrex and mobic in the past. Hx of GERD, on omeprazole. Pain today 3/10 ache, increasing to 10/10 with occasional migraines lasting 3-5 days. Hx of cervical DDD and facet arthropathy on prior xray. cc:: CC: Nicole Acevedo NP Review of Systems ROS Status of ROS 10 or more systems reviewed and unremarkable except as noted in history and below Musculoskeletal Reports: neck pain and joint pain PFSH [facility] Medical History Prolonged emergence from general anesthesia ?T88.59XA - Other complications of anesthesia, initial encounter (ICD-10) Pain management contract signed ?Z02.89 - Encounter for other administrative examinations (ICD-10) Back pain ?M54.9 - Dorsalgia, unspecified (ICD-10) PTSD (post-traumatic stress disorder) ?F43.10 - Post-traumatic stress disorder, unspecified (ICD-10) Depression ?F32.A - Depression, unspecified (ICD-10) Dysphagia ?R13.10 - Dysphagia, unspecified (ICD-10) Uvulitis ?K12.2 - Cellulitis and abscess of mouth (ICD-10) Insomnia ?G47.00 - Insomnia, unspecified (ICD-10) Migraine ?G43.909 - Migraine, unspecified, not intractable, without status migrainosus (ICD-10) GERD (gastroesophageal reflux disease) ?K21.9 - Gastro-esophageal reflux disease without esophagitis (ICD-10) Dyspnea on exertion ?R06.09 - Other forms of dyspnea (ICD-10) Heart valve disorder ?I38 - Endocarditis, valve unspecified (ICD-10) Hypoglycemia ?E16.2 - Hypoglycemia, unspecified (ICD-10) Delayed recovery from anesthesia Chronic foot ulcer ?L97.509 - Non-pressure chronic ulcer of other part of unspecified foot with unspecified severity (ICD-10) 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 - Central serous chorioretinopathy, unspecified eye (ICD-10) Chronic pain ?G89.29 - Other chronic pain (ICD-10) Narcolepsy ?G47.419 - 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) Anxiety ?F41.9 - Anxiety disorder, unspecified (ICD-10) Upper back pain ?M54.9 - Dorsalgia, unspecified (ICD-10) Low back pain ?M54.50 - Low back pain, unspecified (ICD-10) TMJ (dislocation of temporomandibular joint) ?S03.00XA - Dislocation of jaw, unspecified side, initial encounter (ICD-10) Obesity ?E66.9 - Obesity, unspecified (ICD-10) Sleep apnea ?G47.30 - Sleep apnea, unspecified (ICD-10) Hypertension ?I10 - Essential (primary) hypertension (ICD-10) Surgical History H/O foot surgery ?Z98.890 - Other specified postprocedural states (ICD-10) H/O radiofrequency ablation (RFA) of nerve of lumbar spine ?Z98.890 - Other specified postprocedural states (ICD-10) History of fusion of cervical spine ?Z98.1 - Arthrodesis status (ICD-10) H/O inguinal hernia repair ?Z98.890 - Other specified postprocedural states (ICD-10) ?Z87.19 - Personal history of other diseases of the digestive system (ICD-10) H/O repair of rotator cuff ?Z98.890 - Other specified postprocedural states (ICD-10) History of uvulopalatopharyngoplasty ?Z98.890 - Other specified postprocedural states (ICD-10) Family History Other Family history of diabetes mellitus Family history of hypertension Family history of myocardial infarction Family history of stroke Social History Within the past year, how often did you have a drink containing alcohol: monthly or less Smoking status: Never smoker Non-prescribed substance use: cannabis (any form) Previous occupational history: unemployed Highest level of school completed/degree received: high school graduate Meds Home Medications and Allergies Home Medications ?Medication ?Instructions ?Recorded ?Confirmed ?Type carvedilol 25 mg tablet 25 mg PO BID 06/14/23 01/03/24 History citalopram 20 mg tablet 20 mg PO DAILY 06/14/23 01/03/24 History clonazepam 0.5 mg tablet 0.5 mg PO DAILY 06/14/23 01/03/24 History doxazosin 8 mg tablet 8 mg PO DAILY 06/14/23 01/03/24 History doxepin 10 mg capsule 10 mg PO DAILY PRN itching 06/14/23 01/03/24 History furosemide 20 mg tablet 20 mg PO DAILY 06/14/23 12/28/23 History gabapentin 600 mg tablet 600 mg PO BID 06/14/23 01/03/24 History glycopyrrolate 1 mg tablet 1 mg PO BID 06/14/23 01/03/24 History hydroxyzine pamoate 25 mg capsule 25 mg PO QPM 06/14/23 01/03/24 History meclizine 25 mg tablet 25 mg PO DAILY 06/14/23 01/03/24 History pantoprazole 40 mg tablet,delayed 40 mg PO DAILY 06/14/23 01/03/24 History release sildenafil 25 mg tablet 25 mg PO DAILY 06/14/23 01/03/24 History simvastatin 20 mg tablet 20 mg PO DAILY 06/14/23 01/03/24 History testosterone cypionate 100 mg/mL 100 mg subcut .EVERY 2 WEEKS 06/14/23 12/28/23 History intramuscular oil tizanidine 4 mg capsule 4 mg PO .EVERY NIGHT 06/14/23 01/03/24 History aspirin 81 mg tablet,delayed 81 mg PO DAILY 09/04/23 01/03/24 History release (Miguel Angel Low Dose Aspirin) modafinil 200 mg tablet 200 mg PO DAILY 09/04/23 01/03/24 History potassium chloride 10 mEq 10 meq PO Q12H 09/04/23 01/03/24 History tablet,extended release amantadine HCl 100 mg tablet 100 mg PO BID 12/28/23 01/03/24 History biotin 10,000 mcg capsule mcg PO 12/28/23 History cholecalciferol (vitamin D3) 125 5,000 unit PO DAILY 12/28/23 01/03/24 History mcg (5,000 unit) capsule melatonin 10 mg capsule 10 mg PO DAILY 12/28/23 01/03/24 History multivitamin (Daily Multi-Vitamin 1 tab PO DAILY 12/28/23 01/03/24 History tablet) ondansetron 4 mg disintegrating 4 mg PO TID-QID PRN nausea and 12/28/23 01/03/24 History tablet vomiting sumatriptan succinate 100 mg tablet 100 mg PO Q2H PRN migraine headache 12/28/23 01/03/24 History aspirin 81 mg tablet,delayed 81 mg PO BID 30 days #60 tabs 01/03/24 Rx release (Adult Low Dose Aspirin) cefadroxil 500 mg capsule 500 mg PO BID 7 days #14 caps 01/03/24 Rx tramadol 50 mg tablet 50 mg PO Q6H PRN pain 7 days #28 01/03/24 Rx tabs cephalexin 500 mg capsule 500 mg PO TID 7 days #21 caps 02/05/24 Rx sodium chloride 0.65 % nasal spray 1 spray intranasal BID PRN dry 02/05/24 Rx aerosol nasal passages #15 mL Allergies Allergy/AdvReac Type Severity Reaction Status Date / Time No Known Drug Allergies Allergy Verified 12/28/23 09:24 Exam Constitutional Documenting provider has reviewed patient's vital signs: yes Common normals: no apparent distress, oriented x3, healthy appearing, alert and well nourished General appearance: cooperative [facility] Common normals: normocephalic, hearing grossly normal bilaterally and moist oral mucous membranes Head and scalp: normocephalic Eye Common normals: PERRL Pupil: PERRL Neck & C-Spine General: normal visual inspection Cervical spine: cervical ROM abnormal and pain with cervical ROM Other: pain over bilateral C2-4 facets hx of fusion C5-7 Chest Common normals: inspection of chest normal Respiratory Common normals: normal respiratory effort, no retractions and no use of accessory muscles Back & Pelvis Thoracic spine/upper back: normal to inspection and thoracic ROM normal Lumbar spine/lower back: normal to inspection and lumbar ROM normal Sacroiliac joints: SI joints normal Extremity Common normals: normal to inspection and full ROM Neuro Common normals: oriented x3, CN's II-XII intact bilaterally, moves all extremities, no focal motor deficits, no sensory deficits noted, deep tendon reflexes 2+ bilaterally and gait normal Sensorium/orientation: alert Motor exam: strength 5/5 throughout and no movement abnormalities noted Psych Common normals: mental status grossly normal, thought process normal, cooperative, affect normal, speech normal and activity/motor behavior normal Speech: normal speech Thought process: normal thought process Results Additional Findings Additional findings: If on a controlled substance or opioids, I have checked an [place] report on this patient and there are no aberrancies noted in the prescribing history.??If on a controlled substance or opioid a drug screen was completed and reviewed within the last year, and if there has not been a drug screen completed we ordered one today to monitor higher risk, state monitored pain medication use. As part of providing excellent, safe, comprehensive care, the following was completed at our patient's visit: 1. A medication reconciliation and review to ensure accurate knowledge of current/active medications, including asking our patients to inform us about any [id number] medications or herbal remedies/nutritional supplements/alternative remedies. 2. A review to specifically ensure our patients have had annual screening for screening for depression, screening for tobacco use, and screening for unhealthy alcohol use. For concerning screenings had a discussion with the patient, provided patient education, and recommended follow-up with primary care provider when appropriate. If patient noted with a risk of falling, they received education on strength, gait, and balance training to prevent future risk of falling. Assessment and Plan Assessment and Plan (1) Cervical spondylosis: (2) Chronic pain syndrome: (3) Lumbar spondylosis: (4) Bilateral knee pain: Qualifiers: Chronicity: chronic Qualified Code(s): M25.561 - Pain in right knee; M25.562 - Pain in left knee; G89.29 - Other chronic pain Plan bilateral C2-3 C3-4 MBB x2 working towards thermal RFA, to be completed under fluoroscopy. risks vs benefits reviewed continue current medication regimen, tolerating well without side effects f/u after MBB
--- OUTSIDE RECORDS SUMMARY | 2024-03-01 13:22 | XMS_ITS | CCD ---
Author Organization [facility] Care Team Providers Care Foil Stamp Operator Name Role Phone UNKNOWN, PROVIDER Admitting Unavailable UNKNOWN, PROVIDER Attending Unavailable VENUS MENDEZ Referring Unavailable VENUS MENDEZ Primary Care Unavailable DE Procedure Practitioner Unavailab le UNKNOWN, PROVIDER Surgeon Unavailable DE Procedure Practitioner Unavailab le SANDRA BILL Surgeon Unavailable UNKNOWN, PROVIDER Admitting Unavailable UNKNOWN, PROVIDER Attending Unavailable VENUS MENDEZ Referring Unavailable VENUS MENDEZ Primary Care Unavailable DE Procedure Practitioner Unavailab le UNKNOWN, PROVIDER Surgeon [...] Consulting Unavailable MAYRA BERNAL Consulting Unavailable Quynh DELAGDO, Diallo Berkowitz Attending Unavailable Gishruthi DELGADO, Diallo Berkowitz Attending Unavailable Quynh DELGADO, Diallo Berkowitz Attending Unavailable Quynh DELGADO, Diallo Berkowitz Attending Unavailable Quynh DELGADO, Diallo Berkowitz Attending Unavailable CHINO Vallejo Attending Provider [phone] Trey Vallejo Admitting Unavailable Trey Vallejo Attending Unavailable Rubén Geiger. Admitting Unavailable Rubén Geiger. Attending Unavailable Venus Mendez Primary Care Unavailable RUBÉN GEIGER Attending Unavailable RUBÉN GEIGER Attending Unavailable VALENCIA DE LEÓN Attending Unavailable VALENCIA DE LEÓN Referring Unavailable Allergies Allergy Classification Reported Allergen(s) Allergy Type Date of Onset Reaction(s) Facility (1 source) Aspartame Drug Allergy 08-17-20 18 [facility] Repository (1 source) avoid; Translations: [Unknown] Propensity to adverse reactions (disorder) 08-17-20 18 [facility] Repository (1 source) vitamin B12; Translations: [cyanocobalamin] Drug Allergy Unknown (qualifier value) [facility] [place] (1 source) Acetaminophen / HYDROcodone Drug Allergy [facility] Repository (1 source) Corticosteroids Drug allergy (disorder) [facility] Repository (1 source) fentaNYL Drug Allergy [facility] Repository (1 source) Misc-Food; Translations: [Misc-Food] Food allergy (disorder) [facility] Repository (1 source) Corticosteroids Drug allergy (disorder) 05-14-20 18 [facility] Repository Medications Current Medications Medication Drug Class(es) [...] Bedtime May 14, 2018 12:00am Vit D3-Folic [id number]-B12 (1 source) Start: 05-14-2018 take 1 tablet by mouth once daily Vit D3-Folic Tagw-F5-I9-B12 Active 1 TAB PO Daily May 14, [...] 3 Chronic Other aftercare (1 source) terminal carman (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; Translations: [SPECIFICATIONS WRITER 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 ASPIRIN] Onset: 3 Episodic Other aftercare (1 source) Other halfway (current) drug therapy; Translations: [OTH SPECIFICATIONS WRITER CURRENT DRUG THERAPY] Onset: 3 Episodic [...] Test Name Value Interpretation Reference Range Facility [facility] 01-03-2024 L Specimen: [id number] Received: 01/03/24 Status: GIOVANNI Jacinto Num: [id number] Spec Type: Surgical Subm Dr: Trey Vallejo DPM, MS Tissues: A Bone Fragments - Pathologic Fracture (PROXIMAL PHALANX RIGHT HALLU) Procedures: HE/2, Gross/Micro L5, Decalcification Age/ Patient Sex Location Account Attending Physician Matty Garces 53/M LABELL [id number] Trey Vallejo DPM, MS SPEC NUM: [id number] RECD: 01/03/24 STATUS: GIOVANNI KRAMER NUM: [id number] SOFY: 01/03/[address]: Trey Vallejo DPM, MS ENTERED: 01/03/[address] [facility] [address]: Toño,Ayesha SPEC TYPE: Surgical DEPT: SEEMA [...] Sectioning reveals unremarkable yellow, spongy bone matrix. Collating Machine Operator sections are submitted in A1 following decal. Clinical history: Non-pressure chronic ulcer . Right hallux IPJ arthroplasty with wound debridement and graft application TW Specimen: [id number] Received: 01/03/24 Status: GIOVANNI Jacinto Num: [id number] Spec Type: Surgical Subm Dr: Trey Vallejo,DPJose Eduardo, MS Tissues: A Bone Fragments - Pathologic Fracture (PROXIMAL PHALANX RIGHT HALLU) Procedures: HE/2, Gross/Micro L5, Decalcification Patient: Matty Garces [id number] (Continued) Specimen: [id number] Received: 01/03/24 (Continued) Signed (signature on file) Viral Rae MD 01/06/24 1838 Specimen: [id number] Received: 01/03/24 Status: GIOVANNI Ophelia Num: [id number] Spec Type: Surgical Subm Dr: Trey Vallejo,DPM, MS Tissues: A Bone Fragments - Pathologic Fracture (PROXIMAL PHALANX RIGHT HALLU) Procedures: HE/2, Gross/Micro L5, Decalcification Patient: Matty Garces [id number] (Continued) Specimen: [id number] Received: 01/03/24 (Continued) CPT Codes 57139 Specimen: [id number] Received: 01/03/24 Status: GIOVANNI Jacinto Num: [id number] Spec Type: Surgical Subm Dr: Trey Vallejo,DPM, MS Tissues: A Bone Fragments - Pathologic Fracture (PROXIMAL PHALANX RIGHT HALLU) Procedures: HE/2, Gross/Micro L5, Decalcification Patient: Matty Garces [id number] (Continued) Signed (signature on file) Viral Rae MD 01/06/241837 Normal [facility] XR cervical spine 5V*on 02-12 XR cervical spine 5V* [facility] [place] [address] XRay Report Signed Patient: Matty Garces MR#: [id number] 97 : 1970 Acct:[id number] Age/Sex: 52 / M ADM Date: 03/11/23 Loc: ICXD Room: Type: [facility] Attending Dr: Rubén Geiger MD Copies [...] Crow Contreras M.D.03/11/2023 3:48 PM Dictation Location: [place] [address] Transcribed By: [facility] 03/11/23 1548 Dictated By: Crow Contreras DO 03/11/23 1544 Signed By: 03/11/23 1548 Normal [facility] CT CSPINE WO CONon CT CSPINE WO [...] by: ANGEL JORDAN Date: 2022-12-06 06:37 Normal [facility] CT FACIAL BONES WO CONon [...] ANGEL JORDAN Date: 2022-12-06 06:41 Normal [facility] CT HEAD WO CONon 12-06-2022 CT [...] ANGEL JORDAN Date: 2022-12-06 06:39 Normal [facility] XR ELBOW RT MIN 3 VIEWSon XR ELBOW RT MIN 3 VIEWS Exam: Radiographs: XR ELBOW RT MIN 3 VIEWS Reason for exam: Elbow pain Comparison: None IMPRESSION: Right elbow degenerative changes. Olecranon spur. Remainder of the right elbow is unremarkable. Electronically authenticated by: MICHAEL CASANOVA Date: 2022-12-06 07:22 Normal [facility] XR FOREARM RT 2Von 3 XR FOREARM RT 2V Exam: Radiographs: XR FOREARM RT 2V Reason for exam: Forearm pain Comparison: None IMPRESSION: Mild degenerative changes in the right elbow and wrist. Right forearm is otherwise unremarkable. Electronically authenticated by: MICHAEL CASANOVA Date: 2022-12-06 08:07 Normal [facility] PSA, FREE AND TOTAL RATIOon 12-03-2022 % Free PSA 9.0 % Normal [facility] Comment on above: Result Comment: The [...] men. Performed By: #### P SAFREE #### [facility] [address] [place] [address] [address] Shabnam Rae Prostate specific Ag [Mass/Vol] 5.9 ng/mL Critically high 0.0-4.0 [facility] Comment on above: Result Comment: Roch e ECLIA methodology. . According to the [employer], Serum PSA should decrease and [...] disease. Performed By: #### P SAFREE #### [facility] [address] [address] [address] Shabnam Rae PSA, Free 0.53 ng/mL Normal N/A [facility] Comment on above: Result Comment: Roch e ECLIA methodology. Performed By: #### P SAFREE #### [facility] [address] [place], [place] [address] Dr. Shabnam Rae INSULINon 12-02-2022 Insulin 20.2 uIU/mL Normal 2.6-24.9 [facility] Comment on above: Performed By: #### P SASC #### [facility] [address] [place], [place] [address] Dr. Shabnam Rae TESTOSTERONE, TOTALon 2022 Testosterone [Mass/Vol] 256 ng/dL Critically low 264-916 [facility] Comment on above: Result Comment: Adul t male reference interval is based on a population of healthy nonobese males (BMI <30) between 19 and 39 years old. adia Ch.al. JCEM 2017,102;[id number]. PMID: [id number]. Performed By: #### P SASC #### [facility] [address] [place] [address] Dr. Shabnam Rae CBC AUTO DIFFon 12-01-2022 BASO # 0.1 103/ul Normal 0.0-0.1 [facility] Comment on above: Performed By: #### P SASC #### [facility] [address] [place] [address] Dr. Shabnam Rae Basophils/100 WBC (Bld) 1.0 % Normal 0.2-2.0 [facility] Comment on above: Performed By: #### P SASC #### [facility] [address] [place] [address] Dr. Shabnam Rae EO # 0.1 103/ul Normal 0.0-0.7 [facility] Comment on above: Performed By: #### P SASC #### [facility] [address] [place] [address] Dr. Shabnam Rae Eosinophils/100 WBC (Bld) 1.8 % Normal 0.9-7.0 [facility] Comment on above: Performed By: #### P SASC #### [facility] [address] [place] [address] Dr. Shabnam Rae Erythrocyte distribution width (RBC) [Ratio] 14.8 % Normal 11.0-15.0 [facility] Comment on above: Performed By: #### P SASC #### [facility] [address] [place] [address] Dr. Shabnam Rae Hematocrit (Bld) [Volume fraction] 49.9 % Normal 42.0-54.0 [facility] Comment on above: Performed By: #### P SASC #### [facility] [address] [place] [address] Dr. Shabnam Rae Hemoglobin (Bld) [Mass/Vol] 16.0 g/dL Normal 14.0-18.0 [facility] Comment on above: Performed By: #### P SASC #### [facility] [address] [address] [address] Shabnam Rae IG # 0.04 10e3/ul Critically high 0.00-0.[address] [facility] Comment on above: Performed By: #### P SASC #### [facility] [address] [address] [address] Shabnam Rae IG % 0.6 % Critically high 0.0-0.5 [facility] Comment on above: Performed By: #### P SASC #### [facility] [address] [place] [address] Dr. Shabnam Rae LYMPH # 1.0 103/ul Critically low 1.2-3.8 [facility] Comment on above: Performed By: #### P SASC #### [facility] [address] [place] [address] Dr. Shabnam Rae Lymphocytes/100 WBC (Bld) 16.2 % Critically low 20.5-60.0 [facility] Comment on above: Performed By: #### P SASC #### [facility] [address] [place] [address] Dr. Shabnam Rae MANUAL DIFF REQ NO Normal [facility] Comment on above: Performed By: #### P SASC #### [facility] [address] [place] [address] Dr. Shabnam Rae MCH (RBC) [Entitic mass] 27.7 pg Normal 25.9-34.0 [facility] Comment on above: Performed By: #### P SASC #### [facility] [address] [place] [address] Dr. Shabnam Rae MCHC (RBC) [Mass/Vol] 32.1 g/dL Normal 29.9-35.2 [facility] Comment on above: Performed By: #### P SASC #### [facility] [address] [place] [address] Dr. Shabnam Rae MCV (RBC) [Entitic vol] 86.3 fL Normal 80.0-94.0 [facility] Comment on above: Performed By: #### P SASC #### [facility] [address] [address] [address] Shabnam Rae MONO # 0.5 103/ul Normal 0.3-0.8 [facility] Comment on above: Performed By: #### P SASC #### [facility] [address] [place] [address] Dr. Shabnam Rae Monocytes/100 WBC (Bld) 7.6 % Normal 1.7-12.0 [facility] Comment on above: Performed By: #### P SASC #### [facility] [address] [place] [address] Dr. Shabnam Rae NEUT # 4.6 103/ul Normal 1.4-6.5 [facility] Comment on above: Performed By: #### P SASC #### [facility] [address] [place] [address] Dr. Shabnam Rae Neutrophils/100 WBC (Bld) 72.8 % Normal 43.0-75.0 [facility] Comment on above: Performed By: #### P SASC #### [facility] [address] [place] [address] Dr. Shabnam Rae Platelet mean volume (Bld) [Entitic vol] 9.8 fL Normal 9.5-13.5 [facility] Comment on above: Performed By: #### P SASC #### [facility] [address] [place] [address] Dr. Shabnam Rae PLT 203 103/ul Normal 150-450 [facility] Comment on above: Performed By: #### P SASC #### [facility] [address] [place] [address] Dr. Shabnam Rae RBC 5.78 106/ul Normal 4.70-6.10 [facility] Comment on above: Performed By: #### P SASC #### [facility] [address] [place] [address] Dr. Shabnam Rae WBC 6.3 103/ul Normal 4.0-11.0 [facility] Comment on above: Performed By: #### P SASC #### [facility] [address] [address] [address] Shabnam Rae FREE THYROXINE INDEX T7on FTI 2.05 Normal 1.30-4.50 [facility] Comment on above: Performed By: #### T SH, CMP, LIPID, T7, URIC #### [facility] [address] [address] [address] Shabnam Rae T3U 33.0 % Normal 33.0-40.0 [facility] Comment on above: Performed By: #### T SH, CMP, LIPID, T7, URIC #### [facility] [address] [address] [address] Shabnam Rae T4 [Mass/Vol] 6.20 ug/dL Normal 4.50-12.10 [facility] Comment on above: Performed By: #### T SH, CMP, LIPID, T7, URIC #### [facility] [address] [place] [address] Dr. Shabnam Rae GLYCOHEMOGLOBIN A1Con 2022 ADA RECOMMENDATION SEE BELOW Normal [facility] Comment on above: Result Comment: ADA RECOMMENDED LIMIT 4.0 - 6.0 ADA THERAPEUTIC TARGET < 7.0 ACTION SUGGESTED > 7.0 Performed By: #### P SASC #### [facility] [address] [place] [address] Dr. Shabnam Rae Glucose [Mass/Vol] 114 mg/dL Normal [facility] Comment on above: Performed By: #### P SASC #### [facility] [address] [place] [address] Dr. Shabnam Rae HbA1c (Bld) [Mass fraction] 5.6 % Normal 4.5-6.2 [facility] Comment on above: Performed By: #### P SASC #### [facility] [address] [place] [address] Dr. Shabnam Rae LIPID PROFILEon 12-01-2022 CHOL-HDL RATIO NORM SEE BELOW Normal [facility] Comment on above: Result Comment: 3.3 - 4.4 LOW RISK 4.4 - 7.1 AVERAGE RISK 7.1 - 11.0 MODERATE RISK >11.0 HIGH RISK Performed By: #### T SH, CMP, LIPID, T7, URIC #### [facility] [address] [address] [address] Shabnam Rae Cholesterol [Mass/Vol] 176 mg/dL Normal <=200 [facility] Comment on above: Performed By: #### T SH, CMP, LIPID, T7, URIC #### [facility] [address] [address] [address] Shabnam Rae Cholesterol in HDL [Mass/Vol] 48 mg/dL Normal 40-60 [facility] Comment on above: Performed By: #### T SH, CMP, LIPID, T7, URIC #### [facility] [address] [address] [address] Shabnam Rae Cholesterol in LDL [Mass/Vol] 108.2 mg/dL Normal [facility] Comment on above: Performed By: #### T SH, CMP, LIPID, T7, URIC #### [facility] [address] [address] [address] Shabnam Rae Cholesterol.total/Ch olesterol in HDL [Mass ratio] 3.7 {ratio} Normal [facility] Comment on above: Performed By: #### T SH, CMP, LIPID, T7, URIC #### [facility] [address] [address] [address] Shabnam Rae HDL NORMAL > or = 60 mg/dl - LOW CARDIOVASCULAR RISK <40 mg/dl - HIGH CARDIOVASCULAR RISK Normal [facility] Comment on above: Performed By: #### T SH, CMP, LIPID, T7, URIC #### [facility] [address] [address] [address] Shabnam Rae LDL CALC NORMAL SEE BELOW Normal [facility] Comment on above: Result Comment: <100 mg/dl OPTIMAL 100 - 129 mg/dl NEAR OR ABOVE OPTIMAL 130 - 159 mg/dl BORDERLINE HIGH 160 - 189 mg/dl HIGH >190 mg/dl VERY HIGH Performed By: #### T SH, CMP, LIPID, T7, URIC #### [facility] [address] [address] [address] Shabnam Rae Triglyceride [Mass/Vol] 99 mg/dL Normal <=150 [facility] Comment on above: Performed By: #### T SH, CMP, LIPID, T7, URIC #### [facility] [address] [address] [address] Shabnam Rae VLDL CALC 19.8 mg/dL Normal [facility] Comment on above: Performed By: #### T SH, CMP, LIPID, T7, URIC #### [facility] [address] [place] [address] Dr. Shabnam Rae PROF 14(COMP METB)on 023 Albumin [Mass/Vol] 4.1 g/dL Normal 3.4-5.0 [facility] Comment on above: Performed By: #### T SH, CMP, LIPID, T7, URIC #### [facility] [address] [place] [address] Dr. Shabnam Rae Albumin/Globulin [Mass ratio] 1.1 {ratio} Normal [facility] Comment on above: Performed By: #### T SH, CMP, LIPID, T7, URIC #### [facility] [address] [place] [address] Dr. Shabnam Rae ALP [Catalytic activity/Vol] 101 U/L Normal 46-116 [facility] Comment on above: Performed By: #### T SH, CMP, LIPID, T7, URIC #### [facility] [address] [place] [address] Dr. Shabnam Rae ALT [Catalytic activity/Vol] 26 U/L Normal 16-63 [facility] Comment on above: Performed By: #### T SH, CMP, LIPID, T7, URIC #### [facility] [address] [place] [address] Dr. Shabnam Rae Anion gap [Moles/Vol] 10.1 mmol/L Normal [facility] Comment on above: Performed By: #### T SH, CMP, LIPID, T7, URIC #### [facility] [address] [place] [address] Dr. Shabnam Rae AST [Catalytic activity/Vol] 19 U/L Normal 15-37 [facility] Comment on above: Performed By: #### T SH, CMP, LIPID, T7, URIC #### [facility] [address] [address] [address] Shabnam Rae Bilirubin [Mass/Vol] 0.8 mg/dL Normal 0.2-1.0 [facility] Comment on above: Performed By: #### T SH, CMP, LIPID, T7, URIC #### [facility] [address] [address] [address] Shabnam Rae Calcium [Mass/Vol] 9.5 mg/dL Normal 8.5-10.1 [facility] Comment on above: Performed By: #### T SH, CMP, LIPID, T7, URIC #### [facility] [address] [place] [address] Dr. Shabnam Rae Chloride [Moles/Vol] 102 mmol/L Normal 98-107 [facility] Comment on above: Performed By: #### T SH, CMP, LIPID, T7, URIC #### [facility] [address] [place] [address] Dr. Shabnam Rae CO2 [Moles/Vol] 32.4 mmol/L Critically high 21.0-32.0 [facility] Comment on above: Performed By: #### T SH, CMP, LIPID, T7, URIC #### [facility] [address] [place] [address] Dr. Shabnam Rae Creatinine [Mass/Vol] 1.00 mg/dL Normal 0.70-1.30 [facility] Comment on above: Performed By: #### T SH, CMP, LIPID, T7, URIC #### [facility] [address] [place] [address] Dr. Shabnam Rae EGFR-AF [place] >60 Normal >=60 [facility] Comment on above: Performed By: #### T SH, CMP, LIPID, T7, URIC #### [facility] [address] [place] [address] Dr. Shabnam Rae EGFR-NON AF [place] >60 Normal >=60 [facility] Comment on above: Performed By: #### T SH, CMP, LIPID, T7, URIC #### [facility] [address] [address] [address] Shabnam Rae Globulin (S) [Mass/Vol] 3.8 g/dL Normal [facility] Comment on above: Performed By: #### T SH, CMP, LIPID, T7, URIC #### [facility] [address] [place] [address] Dr. Shabnam Rae Glucose [Mass/Vol] 94 mg/dL Normal 74-106 [facility] Comment on above: Performed By: #### T SH, CMP, LIPID, T7, URIC #### [facility] [address] [place] [address] Dr. Shabnam Rae Potassium [Moles/Vol] 3.5 mmol/L Normal 3.5-5.1 [facility] Comment on above: Performed By: #### T SH, CMP, LIPID, T7, URIC #### [facility] [address] [place] [address] Dr. Shabnam Rae Protein [Mass/Vol] 7.9 g/dL Normal 6.4-8.2 [facility] Comment on above: Performed By: #### T SH, CMP, LIPID, T7, URIC #### [facility] [address] [place] [address] Dr. Shabnam Rae Sodium [Moles/Vol] 141 mmol/L Normal 136-145 [facility] Comment on above: Performed By: #### T SH, CMP, LIPID, T7, URIC #### [facility] [address] [place] [address] Dr. Shabnam Rae Urea nitrogen [Mass/Vol] 15.0 mg/dL Normal 7.0-18.0 [facility] Comment on above: Performed By: #### T SH, CMP, LIPID, T7, URIC #### [facility] [address] [place] [address] Dr. Shabnam Rae Urea nitrogen/Creatinine [Mass ratio] 15.0 mg/mg Normal [facility] Comment on above: Performed By: #### T SH, CMP, LIPID, T7, URIC #### [facility] [address] [place] [address] Dr. Shabnam Rae TSHon 12-01-2022 TSH 1.504 uIU/mL Normal 0.358-3.740 [facility] Comment on above: Performed By: #### T SH, CMP, LIPID, T7, URIC #### [facility] [address] [place] [address] Dr. Shabnam Rae URIC ACID SERUMon 12-01-2022 Urate [Mass/Vol] 6.9 mg/dL Normal 3.5-7.2 [facility] Comment on above: Performed By: #### T SH, CMP, LIPID, T7, URIC #### [facility] [address] [place] [address] Dr. Shabnam Rae TESTOSTERONE, TOTALon 2021 Testosterone [Mass/Vol] 244 ng/dL Critically low 264-916 [facility] Comment on above: Result Comment: Adul t male reference interval is based on a population of healthy nonobese males (BMI <30) between 19 and 39 years old. Travison, et.al. JCEM 2017,102;8719-8322. PMID: [id number]. Performed By: #### P SAFREE #### [facility] [address] [place] [address] Dr. Shabnam Rae TESTOSTERONE, FREE,DIRECT, T OTALon 03-16-2022 Free Testosterone(Direct) 2.1 pg/mL Critically low 7.2-24.0 [facility] Comment on above: Result Comment: Perf ormed at: BN Performed By: #### C VDTBH #### [facility] [address] [place] [address] Dr. Shabnam Rae Testosterone [Mass/Vol] 252 ng/dL Critically low 264-916 [facility] Comment on above: Result Comment: Adul t male reference interval is based on a population of healthy nonobese males (BMI <30) between 19 and 39 years old. Travison, et.al. JCEM 2017,102;1730-5758. PMID: [id number]. Performed at: CB Performed By: #### C VDTBH #### [facility] [address] [place], [place] [address] Dr. Shabnam Rae Formson 02-26-2022 Forms [id number] 7#1.00CD:127 Normal [facility] Screenson 02-26-2022 Screens [id number] 7#1.00CD:127 Normal [facility] Screens [id number] #1.00CD:127 Normal [facility] Urology Office/Clinic Noteon 02-26-2022 Urology Office/Clinic [...] qualifying data (more content not included)... Normal [facility] Comment on above: Result Comment: Elec tronically Signed By: Viola Grullon MD\.br\Date and Time Signed: 02/26/22 00:20 EDT\.br\Electronically Co-Signed By: Helen Leung\.br\Date and Time Co-Signed: 02/25/22 11:16 EDT Ambulatory Visit Summaryon 0 02-25-2022 Ambulatory Visit Summary MATTY GARCES :1970 Visit Date:02/25/2022 Ambulatory Visit Instructions Your Diagnosis Hydrocele Varicocele BPH without urinary obstruction Tests Performed Urnls Dip Stick Auto w/o Microscopy POC 31910 Your Care Team Attending Physician - Viola [...] Urnls Dip Stick Auto w/o Microscopy POC 64203 (02/25/2022) Bilirubin Urine Dipstick - Negative Blood Urine Dipstick - Negative Glucose Urine Dipstick - Negative Ketones Urine Dipstick - Negative Leukocytes Urine Dipstick - Negative Nitrite Urine Dipstick - Negative Protein Urine Dipstick - Negative Specific [place] Urine Dipstick - >=1.030 Urine Appearance Urine [...] the hydrocele for any changes. ? Take fuwl-lae-zqluees and prescription medicines only as told by [...] intended t (more content not included)... Normal [facility] Patient Educationon 02-26-20 Patient Education Urology [...] the hydrocele for any changes. ? Take lsck-fuj-ykquume and prescription medicines only as told by [...] 02/17/2011 Document Revised: 09/10/2018 Document Reviewed: 09/10/2018 [employer] Patient Education ? 2019 [employer] Normal [facility] ED Note-Physicianon 02-04-20 22 ED Note-Physician [id number]#1.00CD:127 Normal [facility] RAD - Ultrasound Reporton RAD - Ultrasound Report [id number] #1.00CD:127 Normal [facility] RAD - CT Reporton 02-02-2022 RAD - CT Report [id number] 55#1.00CD:127 Normal [facility] RAD - CT Report [id number]#1.00CD:127 Normal [facility] CBC AUTO DIFFon 01-05-2022 BASO # 0.0 103/ul Normal 0.0-0.1 [facility] Comment on above: Performed By: #### P SAFREE #### [facility] [address] [address] [address] Shabnam Rae Basophils/100 WBC (Bld) 0.6 % Normal 0.2-2.0 [facility] Comment on above: Performed By: #### P SAFREE #### [facility] [address] [place] [address] Dr. Shabnam Rae EO # 0.1 103/ul Normal 0.0-0.7 [facility] Comment on above: Performed By: #### P SAFREE #### [facility] [address] [place] [address] Dr. Shabnam Rae Eosinophils/100 WBC (Bld) 2.1 % Normal 0.9-7.0 [facility] Comment on above: Performed By: #### P SAFREE #### [facility] [address] [place] [address] Dr. Shabnam Rae Erythrocyte distribution width (RBC) [Ratio] 13.1 % Normal 11.0-15.0 [facility] Comment on above: Performed By: #### P SAFREE #### [facility] [address] [place] [address] Dr. Shabnam Rae Hematocrit (Bld) [Volume fraction] 43.1 % Normal 42.0-54.0 [facility] Comment on above: Performed By: #### P SAFREE #### [facility] [address] [place] [address] Dr. Shabnam Rae Hemoglobin (Bld) [Mass/Vol] 13.7 g/dL Critically low 14.0-18.0 [facility] Comment on above: Performed By: #### P SAFREE #### [facility] [address] [address] [address] Shabnam Rae IG # 0.04 10e3/ul Critically high 0.00-0.[address] [facility] Comment on above: Performed By: #### P SAFREE #### [facility] [address] [address] [address] Shabnam Rae IG % 0.6 % Critically high 0.0-0.5 [facility] Comment on above: Performed By: #### P SAFREE #### [facility] [address] [address] [address] Shabnam Rae LYMPH # 0.9 103/ul Critically low 1.2-3.8 [facility] Comment on above: Performed By: #### P SAFREE #### [facility] [address] [place] [address] Dr. Shabnam Rae Lymphocytes/100 WBC (Bld) 13.1 % Critically low 20.5-60.0 [facility] Comment on above: Performed By: #### P SAFREE #### [facility] [address] [address] [address] Shabnam Rae MANUAL DIFF REQ NO Normal [facility] Comment on above: Performed By: #### P SAFREE #### [facility] [address] [place] [address] Dr. Shabnam Rae MCH (RBC) [Entitic mass] 29.5 pg Normal 25.9-34.0 [facility] Comment on above: Performed By: #### P SAFREE #### [facility] [address] [address] [address] Shabnam Rae MCHC (RBC) [Mass/Vol] 31.8 g/dL Normal 29.9-35.2 [facility] Comment on above: Performed By: #### P SAFREE #### [facility] [address] [place] [address] Dr. Shabnam Rae MCV (RBC) [Entitic vol] 92.9 fL Normal 80.0-94.0 [facility] Comment on above: Performed By: #### P SAFREE #### [facility] [address] [address] [address] Shabnam Rae MONO # 0.4 103/ul Normal 0.3-0.8 [facility] Comment on above: Performed By: #### P SAFREE #### [facility] [address] [address] [address] Shabnam Rae Monocytes/100 WBC (Bld) 5.4 % Normal 1.7-12.0 [facility] Comment on above: Performed By: #### P SAFREE #### [facility] [address] [address] [address] Shabnam Rae NEUT # 5.2 103/ul Normal 1.4-6.5 [facility] Comment on above: Performed By: #### P SAFREE #### [facility] [address] [place] [address] Dr. Shabnam Rae Neutrophils/100 WBC (Bld) 78.2 % Critically high 43.0-75.0 [facility] Comment on above: Performed By: #### P SAFREE #### [facility] [address] [place] [address] Dr. Shabnam aRe Platelet mean volume (Bld) [Entitic vol] 10.9 fL Normal 9.5-13.5 [facility] Comment on above: Performed By: #### P SAFREE #### [facility] [address] [place] [address] Dr. Shabnam Rae PLT 153 103/ul Normal 150-450 [facility] Comment on above: Performed By: #### P SAFREE #### [facility] [address] [place] [address] Dr. Shabnam Rae RBC 4.64 106/ul Critically low 4.70-6.10 [facility] Comment on above: Performed By: #### P SAFREE #### [facility] [address] [address] [address] Shabnam Rae WBC 6.6 103/ul Normal 4.0-11.0 [facility] Comment on above: Performed By: #### P SAFREE #### [facility] [address] [place] [address] Dr. Shabnam Rae CRPon 01-05-2022 CRP 0.9 mg/dL Normal <=1.0 [facility] Comment on above: Performed By: #### P SAFREE #### [facility] [address] [place] [address] Dr. Shabnam Rae PROF 14(COMP METB)on 022 Albumin [Mass/Vol] 3.6 g/dL Normal 3.4-5.0 [facility] Comment on above: Performed By: #### P SAFREE #### [facility] [address] [place] [address] Dr. Shabnam Rae Albumin/Globulin [Mass ratio] 1.0 {ratio} Normal [facility] Comment on above: Performed By: #### P SAFREE #### [facility] [address] [place] [address] Dr. Shabnam Rae ALP [Catalytic activity/Vol] 114 U/L Normal 46-116 [facility] Comment on above: Performed By: #### P SAFREE #### [facility] [address] [place] [address] Dr. Shabnam Rae ALT [Catalytic activity/Vol] 26 U/L Normal 16-63 [facility] Comment on above: Performed By: #### P SAFREE #### [facility] [address] [place] [address] Dr. Shabnam Rae Anion gap [Moles/Vol] 9.3 mmol/L Normal [facility] Comment on above: Performed By: #### P SAFREE #### [facility] [address] [place] [address] Dr. Shabnam Rae AST [Catalytic activity/Vol] 19 U/L Normal 15-37 [facility] Comment on above: Performed By: #### P SAFREE #### [facility] [address] [place] [address] Dr. Shabnam Rae Bilirubin [Mass/Vol] 0.5 mg/dL Normal 0.2-1.0 [facility] Comment on above: Performed By: #### P SAFREE #### [facility] [address] [place], [place] [id number] Dr. Shabnam Rae Calcium [Mass/Vol] 8.9 mg/dL Normal 8.5-10.1 [facility] Comment on above: Performed By: #### P SAFREE #### [facility] [address] [place] [address] Dr. Shabnam Rae Chloride [Moles/Vol] 106 mmol/L Normal 98-107 [facility] Comment on above: Performed By: #### P SAFREE #### [facility] [address] [place] [address] Dr. Shabnam Rae CO2 [Moles/Vol] 30.7 mmol/L Normal 21.0-32.0 [facility] Comment on above: Performed By: #### P SAFREE #### [facility] [address] [place] [address] Dr. Shabnam Rae Creatinine [Mass/Vol] 1.15 mg/dL Normal 0.70-1.30 [facility] Comment on above: Performed By: #### P SAFREE #### [facility] [address] [place] [address] Dr. Shabnam Rae EGFR-AF [place] >60 Normal >=60 [facility] Comment on above: Performed By: #### P SAFREE #### [facility] [address] [place] [address] Dr. Shabnam Rae EGFR-NON AF [place] >60 Normal >=60 [facility] Comment on above: Performed By: #### P SAFREE #### [facility] [address] [place] [address] Dr. Shabnam Rae Globulin (S) [Mass/Vol] 3.6 g/dL Normal [facility] Comment on above: Performed By: #### P SAFREE #### [facility] [address] [place] [address] Dr. Shabnam Rae Glucose [Mass/Vol] 117 mg/dL Critically high 74-106 [facility] Comment on above: Performed By: #### P SAFREE #### [facility] [address] [place] [address] Dr. Shabnam Rae Potassium [Moles/Vol] 4.0 mmol/L Normal 3.5-5.1 [facility] Comment on above: Performed By: #### P SAFREE #### [facility] [address] [address] [address] Shabnam Rae Protein [Mass/Vol] 7.2 g/dL Normal 6.1-8.2 [facility] Comment on above: Performed By: #### P SAFREE #### [facility] [address] [place] [address] Dr. Shabnam Rae Sodium [Moles/Vol] 142 mmol/L Normal 136-145 [facility] Comment on above: Performed By: #### P SAFREE #### [facility] [address] [place] [address] Dr. Shabnam Rae Urea nitrogen [Mass/Vol] 15.0 mg/dL Normal 7.0-18.0 [facility] Comment on above: Performed By: #### P SAFREE #### [facility] [address] [place] [address] Dr. Shabnam Rae Urea nitrogen/Creatinine [Mass ratio] 13.0 mg/mg Normal [facility] Comment on above: Performed By: #### P SAFREE #### [facility] [address] [place] [address] Dr. Shabnam Rae US SCROTUMon 01-05-2022 US [...] ALVINA CAICEDO Date: 2022-01-05 08:48 Normal [facility] CBC AUTO DIFFon 01-04-2022 BASO # 0.1 103/ul Normal 0.0-0.1 [facility] Comment on above: Performed By: #### C BC #### [facility] [address] [place] [address] Dr. Shabnam Rae Basophils/100 WBC (Bld) 0.8 % Normal 0.2-2.0 [facility] Comment on above: Performed By: #### C BC #### [facility] [address] [place] [address] Dr. Shabnam Rae EO # 0.1 103/ul Normal 0.0-0.7 [facility] Comment on above: Performed By: #### C BC #### [facility] [address] [place] [address] Dr. Shabnam Rae Eosinophils/100 WBC (Bld) 1.5 % Normal 0.9-7.0 [facility] Comment on above: Performed By: #### C BC #### [facility] [address] [place] [address] Dr. Shabnam Rae Erythrocyte distribution width (RBC) [Ratio] 12.8 % Normal 11.0-15.0 [facility] Comment on above: Performed By: #### C BC #### [facility] [address] [place] [address] Dr. Shabnam Rae Hematocrit (Bld) [Volume fraction] 40.3 % Critically low 42.0-54.0 [facility] Comment on above: Performed By: #### C BC #### [facility] [address] [place] [address] Dr. Shabnam Rae Hemoglobin (Bld) [Mass/Vol] 13.4 g/dL Critically low 14.0-18.0 [facility] Comment on above: Performed By: #### C BC #### [facility] [address] [place] [address] Dr. Shabnam Rae IG # 0.03 10e3/ul Normal 0.00-0.03 [facility] Comment on above: Performed By: #### C BC #### [facility] [address] [place] [address] Dr. Shabnam Rae IG % 0.5 % Normal 0.0-0.5 [facility] Comment on above: Performed By: #### C BC #### [facility] [address] [place] [address] Dr. Shabnam Rae LYMPH # 1.0 103/ul Critically low 1.2-3.8 [facility] Comment on above: Performed By: #### C BC #### [facility] [address] [place] [address] Dr. Shabnam Rae Lymphocytes/100 WBC (Bld) 16.4 % Critically low 20.5-60.0 [facility] Comment on above: Performed By: #### C BC #### [facility] [address] [place] [address] Dr. Shabnam Rae MANUAL DIFF REQ NO Normal [facility] Comment on above: Performed By: #### C BC #### [facility] [address] [place] [address] Dr. Shabnam Rae MCH (RBC) [Entitic mass] 29.5 pg Normal 25.9-34.0 [facility] Comment on above: Performed By: #### C BC #### [facility] [address] [place] [address] Dr. Shabnam Rae MCHC (RBC) [Mass/Vol] 33.3 g/dL Normal 29.9-35.2 [facility] Comment on above: Performed By: #### C BC #### [facility] [address] [place] [address] Dr. Shabnam Rae MCV (RBC) [Entitic vol] 88.8 fL Normal 80.0-94.0 [facility] Comment on above: Performed By: #### C BC #### [facility] [address] [place] [address] Dr. Shabnam Rae MONO # 0.6 103/ul Normal 0.3-0.8 [facility] Comment on above: Performed By: #### C BC #### [facility] [address] [place] [address] Dr. Shabnam Rae Monocytes/100 WBC (Bld) 9.6 % Normal 1.7-12.0 [facility] Comment on above: Performed By: #### C BC #### [facility] [address] [place] [address] Dr. Shabnam Rae NEUT # 4.4 103/ul Normal 1.4-6.5 [facility] Comment on above: Performed By: #### C BC #### [facility] [address] [place] [address] Dr. Shabnam Rae Neutrophils/100 WBC (Bld) 71.2 % Normal 43.0-75.0 [facility] Comment on above: Performed By: #### C BC #### [facility] [address] [place] [address] Dr. Shabnam Rae Platelet mean volume (Bld) [Entitic vol] 10.8 fL Normal 9.5-13.5 [facility] Comment on above: Performed By: #### C BC #### [facility] [address] [place] [address] Dr. Shabnam Rae PLT 158 103/ul Normal 150-450 [facility] Comment on above: Performed By: #### C BC #### [facility] [address] [place], [place] [id number] Dr. Shabnam Rae RBC 4.54 106/ul Critically low 4.70-6.10 [facility] Comment on above: Performed By: #### C BC #### [facility] [address] [place] [address] Dr. Shabnam Rae WBC 6.2 103/ul Normal 4.0-11.0 [facility] Comment on above: Performed By: #### C #### [facility] [address] [address] [address] ABD/PELV W CONon [...] MAYRA BERNAL Date: 2022-01-04 05:19 Normal [facility] CT PELVIS WO CONon 2 CT [...] MANUEL HOUGH Date: 2022-01-04 08:54 Normal [facility] CULTURE URINEon 01-04-2022 CULTURE URINE Culture Observations: No growth Normal [facility] Comment on above: Performed By: #### P [facility] #### [facility] [address] [place] [address] Dr. Shabnam Rae Covid-19 PCR ([facility])on 12-13 SARS-CoV-2 (COVID-19) RNA ELIJAH+probe Ql (Unsp spec) Not detected Normal NOT DETECTED [facility] Comment on above: Result Comment: When diagnostic testing is negative, the possibility of a false negative should be considered in the context of a patient's recent exposures and the presence of clinical signs and symptoms consistent with SARS-CoV-2. This test is not yet approved or cleared by the [place] Food and Drug Administration (FDA). This test was developed by [email or web address], [place], [place]. The performance characteristics of this test were validated by [facility]. The results are not intended to be used as the sole means for clinical diagnosis or patient management decisions. The [facility] is authorized under Clinical Laboratory Improvement [...] for this test is supported by the [place] of Health and Human Service's declaration that [...] used). Performed By: #### C VDTBH #### [facility] [address] [place] [address] Dr. Shabnam Rae ER URINE PROFILEon 2 Bilirubin Ql (U) Negative Normal NEGATIVE [facility] Comment on above: Performed By: #### P SASC #### [facility] [address] [place] [address] Dr. Shabnam Rae Clarity (U) CLEAR Normal CLEAR [facility] Comment on above: Performed By: #### P SASC #### [facility] [address] [place] [address] Dr. Shabnam Rae Color (U) YELLOW Normal YELLOW [facility] Comment on above: Performed By: #### P SASC #### [facility] [address] [place] [address] Dr. Shabnam Rae ERUAHD A micrscopic examination will be performed if indicated. Normal [facility] Comment on above: Performed By: #### P SASC #### [facility] [address] [address] [address] Shabnam Rae Glucose Ql (U) Negative Normal NEGATIVE [facility] Comment on above: Performed By: #### P SASC #### [facility] [address] [address] [address] Shabnam Rae Hemoglobin Ql (U) Negative Normal NEGATIVE [facility] Comment on above: Performed By: #### P SASC #### [facility] [address] [address] [address] Shabnam Rae Ketones Ql (U) Negative Normal NEGATIVE [facility] Comment on above: Performed By: #### P SASC #### [facility] [address] [address] [address] Shabnam Rae LEUKOCYTES Negative Normal NEGATIVE [facility] Comment on above: Performed By: #### P SASC #### [facility] [address] [address] [address] Shabnam Rae Nitrite Ql (U) Negative Normal NEGATIVE [facility] Comment on above: Performed By: #### P SASC #### [facility] [address] [address] [address] Shabnam Rae pH (U) 6.5 [pH] Normal 5-9 [facility] Comment on above: Performed By: #### P SASC #### [facility] [address] [place] [address] Dr. Shabnam Rae SPEC GRAVITY 1.010 Normal 1.005-<=1.025 [facility] Comment on above: Performed By: #### P SASC #### [facility] [address] [place] [address] Dr. Shabnam Rae UA PROTEIN Negative Normal NEGATIVE/ TRACE [facility] Comment on above: Performed By: #### P SASC #### [facility] [address] [place] [address] Dr. Shabnam Rae UR MICRO IND NOT INDICATED Normal [facility] Comment on above: Performed By: #### P SASC #### [facility] [address] [place] [address] Dr. Shabnam Rae Urobilinogen Qn (U) 0.2 {Sarai'U}/dL Normal 0.2 - 1. 0 [facility] Comment on above: Performed By: #### P SASC #### [facility] [address] [address] [address] Shabnam Rae LACTATE/LACTIC ACIDon 2021 Lactate [Moles/Vol] 1.0 mmol/L Normal 0.4-2.0 [facility] Comment on above: Performed By: #### P SASC #### [facility] [address] [address] [address] Shabnam Rae PROF CHEM 8 (BAS METB)on Anion gap [Moles/Vol] 10.0 mmol/L Normal [facility] Comment on above: Performed By: #### B MP #### [facility] [address] [place] [address] Dr. Shabnam Rae Calcium [Mass/Vol] 8.5 mg/dL Normal 8.5-10.1 [facility] Comment on above: Performed By: #### B MP #### [facility] [address] [address] [address] Shabnam Rae Chloride [Moles/Vol] 103 mmol/L Normal 98-107 [facility] Comment on above: Performed By: #### B MP #### [facility] [address] [place] [address] Dr. Shabnam Rae CO2 [Moles/Vol] 29.2 mmol/L Normal 21.0-32.0 [facility] Comment on above: Performed By: #### B MP #### [facility] [address] [place] [address] Dr. Shabnam Rae Creatinine [Mass/Vol] 1.25 mg/dL Normal 0.70-1.30 [facility] Comment on above: Performed By: #### B MP #### [facility] [address] [address] [address] Shabnam Rae EGFR-AF [place] >60 Normal >=60 [facility] Comment on above: Performed By: #### B MP #### [facility] [address] [address] [address] Shabnam Rae EGFR-NON AF [place] >60 Normal >=60 [facility] Comment on above: Performed By: #### B MP #### [facility] [address] [address] [address] Shabnam Rae Glucose [Mass/Vol] 132 mg/dL Critically high 74-106 [facility] Comment on above: Performed By: #### B MP #### [facility] [address] [address] [address] Shabnam Rae Potassium [Moles/Vol] 3.2 mmol/L Critically low 3.5-5.1 [facility] Comment on above: Performed By: #### B MP #### [facility] [address] [place] [address] Dr. Shabnam Rae Sodium [Moles/Vol] 139 mmol/L Normal 136-145 [facility] Comment on above: Performed By: #### B MP #### [facility] [address] [address] [address] Shabnam Rae Urea nitrogen [Mass/Vol] 19.0 mg/dL Critically high 7.0-18.0 [facility] Comment on above: Performed By: #### B MP #### [facility] [address] [place] [address] Dr. Shabnam Rae Urea nitrogen/Creatinine [Mass ratio] 15.2 mg/mg Normal [facility] Comment on above: Performed By: #### B MP #### [facility] [address] [place] [address] Dr. Shabnam Rae CERVICAL SPINE 2 OR 3 [facility] 07-06-2019 CERVICAL SPINE 2 OR 3 S [facility] Department of Radiology [address] [place] [phone] Patient Name: MATTY GARCES : 1970 [...] findings. Electronically signed by:Bernice Hoyt. Transcribed by: [email or web address], User Resident: RADHA CHIN Electronically Signed by: BERNICE HYOT @ 07/06/2019 08:52 PM I personally read this/these film(s) with this resident Normal [facility] Comment on above: Order Comment: , STA T READ , STAT READ , , , Ordering Provider - LUCIANO VIEIRA MD , CERVICAL SPINE 2 OR 3 [facility] 04-06-2019 CERVICAL SPINE 2 OR 3 [facility] Department of Radiology [address] [place] [phone] Patient Name: MATTY GARCES : 1970 [...] FALLS Exam: CERVICAL SPINE 2 OR 3 [facility] CERVICAL SPINE 2 OR 3 [facility] 04/06/2019 7:28 AM EDT SIGNS AND [...] study. Electronically signed by:Bernice Hoyt. Transcribed by: [email or web address], User Resident: Electronically Signed by: BERNICE HOYT @ 04/06/2019 04:40 PM Normal [facility] Comment on above: Order Comment: AP/LA T, ODONTOID PLEASE DO SWIMMER'S VIEW FOLLOW UP HARDWARE AND ALIGNMENT, S/P ACDF, RECENT FALLS CERVICAL SPINE 2 OR 3 [facility] 02-17-2019 CERVICAL SPINE 2 OR 3 [facility] Department of Radiology [address] [place] [phone] Patient Name: MATTY GARCES : 1970 [...] findings. Electronically signed by:Bella King. Transcribed by: [email or web address], User Resident: EMILE TINAJERO Electronically Signed by: BELLA KING @ 02/20/2019 11:53 AM I personally read this/these film(s) with this resident Normal [facility] Comment on above: Order Comment: C-SPI NE 2 OR 3 VIEW POSTOP, EVALUATION HARDWARE AN ALIGNMENT BASIC METABOLIC PANELon 05-2 Calcium [Mass/Vol] 9.2 mg/dL Normal 8.6-10.3 [facility] Comment on above: Order Comment: No: D o not add to previous draw Performed By: #### 5 0103 #### [facility] [address] [place] [address], [place] Chloride [Moles/Vol] 101 mmol/L Normal 98-107 [facility] Comment on above: Order Comment: No: D o not add to previous draw Performed By: #### 5 0103 #### [facility] [address] [place] [address], [place] CO2 [Moles/Vol] 26 mmol/L Normal 21-31 [facility] Comment on above: Order Comment: No: D o not add to previous draw Performed By: #### 5 0103 #### [facility] [address] [place] [address], [place] Creatinine [Mass/Vol] 1.02 mg/dL Normal 0.70-1.30 [facility] Comment on above: Order Comment: No: D o not add to previous draw Performed By: #### 5 0103 #### [facility] [address] [place] [address], [place] GFR/1.73 sq M predicted among blacks MDRD (S/P/Bld) [Vol rate/Area] mL/min/{1.73_m2} Normal >60 [facility] Comment on above: Order Comment: No: D o not add to previous draw Performed By: #### 5 0103 #### [facility] [address] [place] [address], [place] GFR/1.73 sq M predicted among non-blacks MDRD (S/P/Bld) [Vol rate/Area] mL/min/{1.73_m2} Normal >60 [facility] Comment on above: Order Comment: No: D o not add to previous draw Performed By: #### 5 0103 #### [facility] [address] [place] [address], [place] Glucose [Mass/Vol] 124 mg/dL High 70-100 [facility] Comment on above: Order Comment: No: D o not add to previous draw Performed By: #### 5 0103 #### [facility] [address] [place] [address], [place] Potassium [Moles/Vol] 3.9 mmol/L Normal 3.5-5.1 [facility] Comment on above: Order Comment: No: D o not add to previous draw Performed By: #### 5 0103 #### [facility] [address] [place] [address], [place] Sodium [Moles/Vol] 137 mmol/L Normal 136-145 [facility] Comment on above: Order Comment: No: D o not add to previous draw Performed By: #### 5 0103 #### [facility] [address] [place] [address], [facility] Urea nitrogen [Mass/Vol] 15 mg/dL Normal 7-25 [facility] Comment on above: Order Comment: No: D o not add to previous draw Performed By: #### 5 3 #### [facility] [address] [place] [address], [facility] CBC COMPLETE BLOOD COUNTon 0 - Erythrocyte distribution width (RBC) [Ratio] 13.9 % Normal 11.5-15.0 [facility] Comment on above: Order Comment: No: D o not add to previous draw Performed By: #### 5 0103 #### [facility] [address] [place] [address], [facility] Hematocrit (Bld) [Volume fraction] 50.0 % Normal 39.0-50.0 [facility] Comment on above: Order Comment: No: D o not add to previous draw Performed By: #### 5 3 #### [facility] [address] [place] [id number], [facility] Hemoglobin (Bld) [Mass/Vol] 16.0 g/dL Normal 13.0-17.0 [facility] Comment on above: Order Comment: No: D o not add to previous draw Performed By: #### 5 0103 #### [facility] [address] [place] [id number], [facility] MCH (RBC) [Entitic mass] 27.5 pg Normal 27.0-33.0 [facility] Comment on above: Order Comment: No: D o not add to previous draw Performed By: #### 5 0103 #### [facility] [address] [place] [address], [facility] MCHC (RBC) [Mass/Vol] 32.0 g/dL Normal 32.0-35.0 [facility] Comment on above: Order Comment: No: D o not add to previous draw Performed By: #### 5 0103 #### [facility] [address] [place] [address], [facility] MCV (RBC) [Entitic vol] 85.9 fL Normal 82.0-98.0 [facility] Comment on above: Order Comment: No: D o not add to previous draw Performed By: #### 5 0103 #### [facility] [address] [place] [address], [facility] Nucleated RBC/100 WBC (Bld) [Ratio] 0 % Normal 0-0 [facility] Comment on above: Order Comment: No: D o not add to previous draw Performed By: #### 5 0103 #### [facility] [address] [facility] [place] [address], [facility] PLAT CNT 249 10*3/uL Normal 150-400 [facility] Comment on above: Order Comment: No: D o not add to previous draw Performed By: #### 5 3 #### [facility] [address] [place] [address], [facility] RBC (Bld) [#/Vol] 5.82 10*6/uL High 4.20-5.70 [facility] Comment on above: Order Comment: No: D o not add to previous draw Performed By: #### 5 0103 #### [facility] [address] [place] [address], [facility] WBC (Bld) [#/Vol] 15.85 10*3/uL High 4.00-10.60 [facility] Comment on above: Order Comment: No: D o not add to previous draw Performed By: #### 5 0103 #### [facility] [address] Operative Reporton 9 Operative Report MR#: [id number] I [facility] Pt. Name: Matty Garces Room #: [id number] Discharge Date: Birthdate: 1970 OPERATIVE REPORT DATE OF SURGERY: 01/30/2019 SURGEON: Luciano Vieira M.D. 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 POSTOPERATIVE DIAGNOSIS: Failed instrumentation at C6-7 on the right. SPECTROGRAPHIC ANALYST: ADENIKE Lugo. ANESTHESIA: Endotracheal, Hogan. PROCEDURES: Redo [...] Vieira M.D. Date Trans: 01/31/2019 02:31 Eze/sasha [id number] cc: Venus Mendez M.D. [address] [facility] [address] Normal [facility] CERVICAL SPINE 2 OR 3 [facility] 01-30-2019 CERVICAL SPINE 2 OR 3 [facility] Department of Radiology [address] [place] [phone] Patient Name: MATTY GARCES : 1970 [...] documentation Electronically signed by:Justus Montano. Transcribed by: [email or web address], User Resident: Electronically Signed by: JUSTUS MONTANO @ 01/30/2019 04:18 PM Normal [facility] Comment on above: Order Comment: C6-7 ACDF POC GLUCOSE LABon 01-30-2019 Glucose [Mass/Vol] 106 mg/dL High 70-100 [facility] Comment on above: Performed By: #### 5 0103 #### [facility] [address] [facility]. [address] *MRSA/MSSA DNA NASALon 01-23 *MRSA/MSSA DNA NASAL Clinical Report: (D ) Specimen: NASAL SWAB Collected: 01/23/2019 15:02 Status: Final Last Updated: 01/23/2019 20:14 MSSA DNA (Final) Methicillin Susceptible Staphylococcus aureus DNA Detected MRSA DNA (Final) No Methicillin Resistant Staphylococcus aureus DNA Detected Normal [facility] Comment on above: Performed By: #### 5 0103 #### [facility] [address] [facility]. [address] APTTon 01-23-2019 aPTT Coag (Bld) [Time] 35.4 s High 25.0-35.0 [facility] Comment on above: Result Comment: ALL RESULTS [...] THIS PURPOSE. Performed By: #### 5 7307, 35150 #### [facility] [address] [facility]. [address] BASIC METABOLIC PANELon 01-11 Calcium [Mass/Vol] 9.5 mg/dL Normal 8.6-10.3 [facility] Comment on above: Performed By: #### 5 7307, 87806 #### [facility] [address] [facility] [place] [address], [facility] Chloride [Moles/Vol] 101 mmol/L Normal 98-107 [facility] Comment on above: Performed By: #### 5 7307, 34613 #### [facility] [address] [place] [address], [facility] CO2 [Moles/Vol] 29 mmol/L Normal 21-31 [facility] Comment on above: Performed By: #### 5 73, 04418 #### [facility] [address] [place] [address], [place] Creatinine [Mass/Vol] 1.08 mg/dL Normal 0.70-1.30 [facility] Comment on above: Performed By: #### 5 73, 40601 #### [facility] [address] [place] [address], [place] GFR/1.73 sq M predicted among blacks MDRD (S/P/Bld) [Vol rate/Area] mL/min/{1.73_m2} Normal >60 [facility] Comment on above: Performed By: #### 5 7306, 29499 #### [facility] [address] [place] [address], [place] GFR/1.73 sq M predicted among non-blacks MDRD (S/P/Bld) [Vol rate/Area] mL/min/{1.73_m2} Normal >60 [facility] Comment on above: Performed By: #### 5 7306, 31075 #### [facility] [address] [place] [address], [place] Glucose [Mass/Vol] 87 mg/dL Normal 70-100 [facility] Comment on above: Performed By: #### 5 73, 46488 #### [facility] [address] [place] [address], [place] Potassium [Moles/Vol] 4.0 mmol/L Normal 3.5-5.1 [facility] Comment on above: Performed By: #### 5 7307, 70733 #### [facility] [address] [place] [address], [place] Sodium [Moles/Vol] 137 mmol/L Normal 136-145 [facility] Comment on above: Performed By: #### 5 7307, 58916 #### [facility] [address] Urea nitrogen [Mass/Vol] 12 mg/dL Normal 7-25 [facility] Comment on above: Performed By: #### 5 73, 71692 #### [facility] [address] CBC W/DIFFon 01-23-2019 ABS BASOPHILS 0.1 10*3/uL Normal 0.0-0.2 The [facility] Comment on above: Performed By: #### 5 Al, 84796 #### [facility] [address] ABS IMM GRANS 0.0 10*3/uL Normal 0.0-0.2 The [facility] Comment on above: Performed By: #### 5 Al, 90290 #### [facility] [address] ABS NEUTROPHILS 5.3 10*3/uL Normal 1.6-7.6 The [facility] Comment on above: Performed By: #### 5 Al, 89574 #### [facility] [address] Basophils/100 WBC (Bld) 0.9 % Normal 0.0-1.0 The [facility] Comment on above: Performed By: #### 5 Al, 52820 #### [facility] [address] Eosinophils (Bld) [#/Vol] 0.2 10*3/uL Normal 0.0-0.5 [facility] Comment on above: Performed By: #### 5 7306, 62176 #### [facility] [address] [place] [address], [facility] Eosinophils/100 WBC (Bld) 2.3 % Normal 0.0-6.0 [facility] Comment on above: Performed By: #### 5 7306, 79735 #### [facility] [address] Erythrocyte distribution width (RBC) [Ratio] 13.8 % Normal 11.5-15.0 [facility] Comment on above: Performed By: #### 5 7306, 81524 #### [facility] [address] [place] [address], [facility] Hematocrit (Bld) [Volume fraction] 49.6 % Normal 39.0-50.0 [facility] Comment on above: Performed By: #### 5 7306, 82530 #### [facility] [address] [place] [address], [facility] Hemoglobin (Bld) [Mass/Vol] 16.4 g/dL Normal 13.0-17.0 The [facility] Comment on above: Performed By: #### 5 7306, 32694 #### [facility] [address] [place] [address], [facility] IMMATURE GRANS 0.5 % Normal 0.0-1.0 The [facility] Comment on above: Performed By: #### 5 7306, 51963 #### [facility] [address] [place] [address], [facility] Lymphocytes (Bld) [#/Vol] 1.2 10*3/uL Normal 1.2-4.0 The [facility] Comment on above: Performed By: #### 5 7306, 99897 #### [facility] [address] [place] [address], [facility] Lymphocytes/100 WBC (Bld) 16.6 % Low 20.0-45.0 The [facility] Comment on above: Performed By: #### 5 7306, 45494 #### [facility] [address] [place] [address], [facility] MCH (RBC) [Entitic mass] 27.8 pg Normal 27.0-33.0 [facility] Comment on above: Performed By: #### 5 7306, 17378 #### [facility] [address] [place] [address], [facility] MCHC (RBC) [Mass/Vol] 33.1 g/dL Normal 32.0-35.0 [facility] Comment on above: Performed By: #### 5 7306, 40799 #### [facility] [address] [place] [address], [facility] MCV (RBC) [Entitic vol] 84.2 fL Normal 82.0-98.0 [facility] Comment on above: Performed By: #### 5 7306, 39144 #### [facility] [address] [place] [address], [facility] Monocytes (Bld) [#/Vol] 0.7 10*3/uL Normal 0.1-1.0 [facility] Comment on above: Performed By: #### 5 7306, 84388 #### [facility] [address] [place] [address], [facility] MONOS 9.4 % Normal 5.0-12.0 [facility] Comment on above: Performed By: #### 5 7306, 47698 #### [facility] [address] [place] [address], [facility] Neutrophils/100 WBC (Bld) 70.3 % Normal 40.0-72.0 [facility] Comment on above: Performed By: #### 5 7306, 61501 #### [facility] [address] [place] [address], [facility] Nucleated RBC/100 WBC (Bld) [Ratio] 0 % Normal 0-0 The [facility] Comment on above: Performed By: #### 5 7306, 85787 #### [facility] [address] [place] [address], [place] PLAT CNT 235 10*3/uL Normal 150-400 [facility] Comment on above: Performed By: #### 5 7307, 25953 #### [facility] [address] [facility]. [address] RBC (Bld) [#/Vol] 5.89 10*6/uL High 4.20-5.70 The [facility] Comment on above: Performed By: #### 5 7307, 77675 #### [facility] [address] WBC (Bld) [#/Vol] 7.48 10*3/uL Normal 4.00-10.60 [facility] Comment on above: Performed By: #### 5 7307, 80608 #### [facility] [address] [facility]. [address] PROTHROMBIN TIMEon 9 INR Coag (PPP) [Relative time] 1.12 {INR} Normal 0.91-1.16 The [facility] Comment on above: Result Comment: ACCC [...] CHEST 1995;108:231S-246S. Performed By: #### 5 7307, 86353 #### [facility] [address] [facility]. [address] PT Coag (PPP) [Time] 14.4 s Normal 12.3-14.8 The [facility] Comment on above: Result Comment: ALL RESULTS MUST BE INTERPRETED WITH RESPECT TO BLOOD DRAWING ARTIFACT OR DILUTION ERROR OF ANTICOAGULANT AT THE TIME OF SAMPLING. Performed By: #### 5 7307, 82297 #### [facility] [address] [facility]. [address] TYPE AND SCREENon 01-23-2019 ABO INTERPRETATION A Normal [facility] Comment on above: Performed By: #### 5 7307, 48565 #### [facility] [address] [facility] [place] [address], [facility] RH INTERPRETATION Positive Normal The [facility] Comment on above: Performed By: #### 5 7307, 81043 #### [facility] [address] [facility]. [address] 3D CERVICAL SPINE WO CONT RASTon 01-12-2019 CT 3D CERVICAL SPINE WO CONTRAST [facility] Department of Radiology [address] [place] [phone] Patient Name: MATTY GARCES : 1970 Sex: M Age: Race: White Pt. Location: Patient Status: D Ordered Date: 01/10/2019 2:15:00 PM Completed Date: 01/12/2019 10:32 AM Requesting Provider: LUCIANO VIEIRA Attending Provider: LUCIANO VIEIRA Report Copy To: VENUS MENDEZ Signs & Symptoms: M48.02 Spinal stenosis, cervical region I10 History: [place]thea para auth # [id number] 01/10/19-02/09/19 87745 *er Comments: Exam: CT 3D CERVICAL SPINE [...] incomplete Electronically signed by:Ten Garland. Transcribed by: [email or web address], User Resident: Electronically Signed by: TEN GARLAND @ 01/13/2019 09:18 AM Normal The [facility] CERVICAL SPINE 2 OR 3 [facility] 01-05-2019 CERVICAL SPINE 2 OR 3 S [facility] Department of Radiology [address] [place] [phone] Patient Name: MATTY GARCES : 1970 Sex: M Age: Race: White Pt. Location: Patient Status: O Ordered Date: 01/05/2019 9:00:00 AM Completed Date: 01/05/2019 09:06 AM Requesting Provider: LUCIANO VIEIRA Attending Provider: LUCIANO VIEIRA Report Copy To: Signs & Symptoms: M48.02 Spinal stenosis, cervical region I10 History: [place] Comments: , , , Ordering Provider - LUCIANO VIEIRA MD , Exam: CERVICAL SPINE 2 OR 3 [facility] CERVICAL SPINE 2 OR 3 [facility] 01/05/2019 9:06 AM EDT SIGNS AND [...] findings. Electronically signed by:Ten Garland. Transcribed by: [email or web address], User Resident: SHELLY DELA CRUZ Electronically Signed by: TEN GARLAND @ 01/05/2019 12:37 PM I personally read this/these film(s) with this resident Normal The [facility] Comment on above: Order Comment: , , = ========= , Ordering Provider - LUCIANO VIEIRA MD , CERVICAL SPINE 2 OR 3 [facility] 08-30-2018 CERVICAL SPINE 2 OR 3 [facility] Department of Radiology [address] [place] [phone] Patient Name: MATTY GARCES : 1970 [...] findings. Electronically signed by:Bella King. Transcribed by: [email or web address], User Resident: RYAN HEAD Electronically Signed by: BELLA KING @ 08/30/2018 05:45 PM I personally read this/these film(s) with this resident Normal The [facility] Comment on above: Order Comment: , POS T OP XRAY AP/LAT ONLY , POST OP XRAY AP/LAT ONLY , , , Ordering Provider - LUCIANO VIEIRA MD , Operative Reporton 8 Operative Report MR#: [id number] I [facility] Pt. Name: Matty Garces Room #: [id number] Discharge Date: Birthdate: 1970 OPERATIVE REPORT DATE OF SURGERY: 08/17/2018 SURGEON: Luciano Vieira M.D. PREOPERATIVE DIAGNOSIS: Herniated cervical disk at C6-7. POSTOPERATIVE DIAGNOSIS: Herniated cervical disk at C6-7. SPECTROGRAPHIC ANALYST: ADENIKE Larios. ANESTHESIA: Endotracheal, Braida. PROCEDURE: Anterior [...] Vieira M.D. Date Trans: 08/17/2018 11:25 P/sasha [id number] cc: Venus Mendez M.D. [address], [facility] Eze [facility] [phone] Normal The [facility] CERVICAL SPINE 2 OR 3 [facility] 08-17-2018 CERVICAL SPINE 2 OR 3 [facility] Department of Radiology [address] [place] [phone] Patient Name: MATTY GARCES : 1970 [...] findings. Electronically signed by:Bernice Hoyt. Transcribed by: [email or web address], User Resident: EMILE TINAJERO Electronically Signed by: BERNICE HOYT @ 08/18/2018 01:06 PM I personally read this/these film(s) with this resident Normal The [facility] Comment on above: Order Comment: C6-7 ACDF with POC GLUCOSE LABon 08-17-2018 Glucose [Mass/Vol] 113 mg/dL High 70-100 The [facility] Comment on above: Performed By: #### 8 [id number] #### [facility] [address] [place] [address], [facility] RBC'S 2 UNITSon 08-17-2018 CROSSMATCH INTERP 1 COMP Normal [facility] Comment on above: Performed By: #### 8 6002 #### [facility] [address] [place] [address], [facility] CROSSMATCH INTERP 2 COMP Normal [facility] Comment on above: Performed By: #### 8 6002 #### [facility] [address] [place] [address], [facility] PRODUCT CODE 1 E0336 Normal [facility] Comment on above: Performed By: #### 8 6002 #### [facility] [address] [place] [address], [facility] PRODUCT CODE 2 E0336 Normal The [facility] Comment on above: Performed By: #### 8 6002 #### [facility] [address] [place] [address], [facility] PRODUCT STATUS 1 RE Normal The [facility] Comment on above: Result Comment: Resu lt changed by IF on 08/20/2018 07:48. The previous value was XM. Performed By: #### 8 6002 #### [facility] [address] [place] [address], [facility] PRODUCT STATUS 2 RE Normal [facility] Comment on above: Result Comment: Resu lt changed by IF on 08/20/2018 07:48. The previous value was XM. Performed By: #### 8 6002 #### [facility] [address] UNIT ABO 1 A Normal [facility] Comment on above: Performed By: #### 8 6002 #### [facility] [address] [facility]. [address] UNIT ABO 2 A Normal [facility] Comment on above: Performed By: #### 8 6002 #### [facility] [address] UNIT ID 1 [id number] Normal The [facility] Comment on above: Performed By: #### 8 6002 #### [facility] [address] [facility]. [address] UNIT ID 2 [id number] Normal The [facility] Comment on above: Performed By: #### 8 6002 #### [facility] [address] [facility]. [address] UNIT RH 1 Positive Normal [facility] Comment on above: Performed By: #### 8 6002 #### [facility] [address] [facility]. [address] UNIT RH 2 Positive Normal [facility] Comment on above: Performed By: #### 8 6002 #### [facility] [address] *MRSA/MSSA CULTUREon 018 *MRSA/MSSA CULTURE Clinical Report: (D) Specimen: NASAL SWAB Collected: 08/02/2018 12:37 Status: Final Last Updated: 08/03/2018 14:26 ISO (Final) No Methicillin Resistant Staphylococcus aureus Isolated (MRSA) ISO (Final) Methicillin Sensitive Staphylococcus aureus (MSSA) Isolated Normal [facility] Comment on above: Performed By: #### 3 1302 #### [facility] [address] APTTon 08-02-2018 aPTT Coag (Bld) [Time] 31.2 s Normal 25.0-35.0 [facility] Comment on above: Result Comment: ALL [...] THIS PURPOSE. Performed By: #### 5 7307, 48552 #### [facility] [address] [place] [address], [facility] BASIC METABOLIC PANELon 11-2 Calcium [Mass/Vol] 9.4 mg/dL Normal 8.6-10.3 [facility] Comment on above: Performed By: #### 0 0071 #### [facility] [address] [place] [address], [facility] Chloride [Moles/Vol] 103 mmol/L Normal 98-107 [facility] Comment on above: Performed By: #### 0 0071 #### [facility] [address] [place] [address], [facility] CO2 [Moles/Vol] 29 mmol/L Normal 21-31 [facility] Comment on above: Performed By: #### 0 0071 #### [facility] [address] [place] [address], [facility] Creatinine [Mass/Vol] 1.06 mg/dL Normal 0.70-1.30 [facility] Comment on above: Performed By: #### 0 0071 #### [facility] [address] [place] [address], [facility] GFR/1.73 sq M predicted among blacks MDRD (S/P/Bld) [Vol rate/Area] mL/min/{1.73_m2} Normal >60 [facility] Comment on above: Performed By: #### 0 0071 #### [facility] [address] [place] [address], [facility] GFR/1.73 sq M predicted among non-blacks MDRD (S/P/Bld) [Vol rate/Area] mL/min/{1.73_m2} Normal >60 [facility] Comment on above: Performed By: #### 0 0071 #### [facility] [address] [place] [address], [facility] Glucose [Mass/Vol] 84 mg/dL Normal 70-100 [facility] Comment on above: Performed By: #### 0 0071 #### [facility] [address] [place] [address], [facility] Potassium [Moles/Vol] 4.0 mmol/L Normal 3.5-5.1 [facility] Comment on above: Performed By: #### 0 0071 #### [facility] [address] Sodium [Moles/Vol] 140 mmol/L Normal 136-145 [facility] Comment on above: Performed By: #### 0 0071 #### [facility] [address] Urea nitrogen [Mass/Vol] 20 mg/dL Normal 7-25 [facility] Comment on above: Performed By: #### 0 0071 #### [facility] [address] CBC W/DIFFon 08-02-2018 ABS BASOPHILS 0.1 10*3/uL Normal 0.0-0.2 The [facility] Comment on above: Performed By: #### 5 3 #### [facility] [address] [place] [address], [facility] ABS IMM GRANS 0.1 10*3/uL Normal 0.0-0.2 The [facility] Comment on above: Performed By: #### 5 3 #### [facility] [address] [place] [address], [facility] ABS NEUTROPHILS 4.2 10*3/uL Normal 1.6-7.6 [facility] Comment on above: Performed By: #### 5 102 #### [facility] [address] [place] [address], [facility] Basophils/100 WBC (Bld) 1.3 % High 0.0-1.0 [facility] Comment on above: Performed By: #### 102 #### [facility] [address] [facility] [place] [address], [facility] Eosinophils (Bld) [#/Vol] 0.1 10*3/uL Normal 0.0-0.5 [facility] Comment on above: Performed By: #### 102 #### [facility] [address] [place] [address], [facility] Eosinophils/100 WBC (Bld) 2.0 % Normal 0.0-6.0 [facility] Comment on above: Performed By: #### 102 #### [facility] [address] Erythrocyte distribution width (RBC) [Ratio] 13.6 % Normal 11.5-15.0 [facility] Comment on above: Performed By: #### 3 #### [facility] [address] [facility]. [address] Hematocrit (Bld) [Volume fraction] 44.3 % Normal 39.0-50.0 [facility] Comment on above: Performed By: #### 102 #### [facility] [address] [facility] [place] [address], [facility] Hemoglobin (Bld) [Mass/Vol] 15.1 g/dL Normal 13.0-17.0 [facility] Comment on above: Performed By: #### 5 0103 #### [facility] [address] IMMATURE GRANS 1.1 % High 0.0-1.0 The [facility] Comment on above: Performed By: #### 5 102 #### [facility] [address] [place] [address], [facility] Lymphocytes (Bld) [#/Vol] 1.2 10*3/uL Normal 1.2-4.0 [facility] Comment on above: Performed By: #### 102 #### [facility] [address] [place] [address], [facility] Lymphocytes/100 WBC (Bld) 18.3 % Low 20.0-45.0 [facility] Comment on above: Performed By: #### 102 #### [facility] [address] MCH (RBC) [Entitic mass] 29.0 pg Normal 27.0-33.0 [facility] Comment on above: Performed By: #### 5 102 #### [facility] [address] MCHC (RBC) [Mass/Vol] 34.1 g/dL Normal 32.0-35.0 [facility] Comment on above: Performed By: #### 5 3 #### [facility] [address] MCV (RBC) [Entitic vol] 85.0 fL Normal 82.0-98.0 [facility] Comment on above: Performed By: #### 5 3 #### [facility] [address] [place] [address], [facility] Monocytes (Bld) [#/Vol] 0.7 10*3/uL Normal 0.1-1.0 [facility] Comment on above: Performed By: #### 5 0103 #### [facility] [address] [place] [address], [facility] MONOS 11.1 % Normal 5.0-12.0 [facility] Comment on above: Performed By: #### 5 0103 #### [facility] [address] [place] [address], [facility] Neutrophils/100 WBC (Bld) 66.2 % Normal 40.0-72.0 [facility] Comment on above: Performed By: #### 5 3 #### [facility] [address] [facility] [place] [address], [facility] Nucleated RBC/100 WBC (Bld) [Ratio] 0 % Normal 0-0 [facility] Comment on above: Performed By: #### 5 102 #### [facility] [address] [facility] [place] [address], [facility] PLAT CNT 179 10*3/uL Normal 150-400 [facility] Comment on above: Performed By: #### 5 0103 #### [facility] [address] [facility] [place] [address], [facility] RBC (Bld) [#/Vol] 5.21 10*6/uL Normal 4.20-5.70 [facility] Comment on above: Performed By: #### 5 102 #### [facility] [address] [facility] [place] [address], [facility] WBC (Bld) [#/Vol] 6.39 10*3/uL Normal 4.00-10.60 [facility] Comment on above: Performed By: #### 5 3 #### [facility] [address] [place] [address], [facility] CERVICAL SPINE 4 OR 5 VIEWSo n 08-02-2018 CERVICAL SPINE 4 OR 5 VIEWS [facility] Department of Radiology [address] [place] [id number] Patient Name: MATTY GARCES : 1970 Sex: [...] findings. Electronically signed by:Bella King. Transcribed by: [email or web address], User Resident: EMILE TINAJERO Electronically Signed by: BELLA KING @ 08/03/2018 11:58 AM I personally read this/these film(s) with this resident Normal [facility] Comment on above: Order Comment: , PRE OP XRAY AP/LAT \EANDE\ FLEX/EX , PREOP XRAY AP/LAT \EANDE\ FLEX/EX , , , Ordering Provider - LUCIANO VIEIRA MD , PROTHROMBIN TIMEon 8 INR Coag (PPP) [Relative time] 1.15 {INR} Normal 0.91-1.16 [facility] Comment on above: Result Comment: ACCC [...] CHEST 1995;108:[id number]. Performed By: #### 5 7307, 05998 #### [facility] [address] [place] [address], [place] PT Coag (PPP) [Time] 14.7 s Normal 12.3-14.8 [facility] Comment on above: Result Comment: ALL RESULTS MUST BE INTERPRETED WITH RESPECT TO BLOOD DRAWING ARTIFACT OR DILUTION ERROR OF ANTICOAGULANT AT THE TIME OF SAMPLING. Performed By: #### 5 7307, [id number] #### [facility] [address] [place] [address], [facility] TYPE AND SCREENon 08-02-2018 ABO INTERPRETATION A Normal [facility] Comment on above: Order Comment: 2 uni ts 2 units 2 units 2 units 2 units Performed By: #### 6 2586 #### [facility] [address] [place] [address], [place] RH INTERPRETATION Positive Normal The [facility] Comment on above: Order Comment: 2 uni ts 2 units 2 units 2 units 2 units Performed By: #### 6 2586 #### [facility] [address] [place] [address], [place] URINALYSIS REFLEXon 08-02-20 18 Appearance (U) CLEAR Normal CLEAR [facility] Comment on above: Performed By: #### 3 0965 #### [facility] [address] [place] [address], [place] Bilirubin [Mass/Vol] Negative Normal NEGATIVE The [facility] Comment on above: Performed By: #### 3 0965 #### [facility] [address] [place] [address], [place] BLOOD Negative Normal NEGATIVE [facility] Comment on above: Performed By: #### 3 0965 #### [facility] [address] [place] [address], [place] Color (U) YELLOW Normal YELLOW [facility] Comment on above: Performed By: #### 3 0965 #### [facility] [address] [place] [address], [place] Glucose [Mass/Vol] 150 mg/dL Abnormal NEGATIVE [facility] Comment on above: Performed By: #### 3 0965 #### [facility] [address] [place] [address], [facility] KETONE Negative Normal NEGATIVE The [facility] Comment on above: Performed By: #### 3 0965 #### [facility] [address] [place] [address], [facility] [place] Negative Normal NEGATIVE The [facility] Comment on above: Performed By: #### 3 0965 #### [facility] [address] [place] [address], [facility] MICRO NOT DONE negative chemical reactions unless requested in original order Normal [facility] Comment on above: Performed By: #### 3 0965 #### [facility] [address] [place] [address], [facility] Nitrite Ql (U) Negative Normal NEGATIVE The [facility] Comment on above: Performed By: #### 3 0965 #### [facility] [address] [place] [address], [facility] pH (Bld) 5.0 Normal 5.0-8.0 [facility] Comment on above: Performed By: #### 3 0965 #### [facility] [address] [place] [id number], [facility] Protein (U) [Mass/Vol] Negative Normal NEGATIVE The [facility] Comment on above: Performed By: #### 3 0965 #### [facility] [address] [place] [address], [facility] SPEC GRAV 1.024 High 1.015-1.020 [facility] Comment on above: Performed By: #### 3 0965 #### [facility] [address] [place] [address], [facility] Vital Signs Date Time Vital Sign Value Performing Clinician Bijali litlamont 02-25-2022 10:30-0400 Blood Pressure Location Viola Lue [facility] [place] 02-25-2022 10:30-0400 Diastolic blood pressure 107 mm[Hg] [facility] 02-25-2022 10:30-0400 Heart rate 74 /min [facility]ue [facility] 02-25-2022 10:30-0400 Respiratory rate 16 /min Viola Lue [facility] [place] 02-25-2022 10:30-0400 Systolic blood pressure 157 mm[Hg] Viola Lue [facility] [place] Encounters Encounter Date Encounter Type Care Provider Facility Start: 01-10-2024 End: 01-11-2024 ambulatory VALENCIA Pate APLING Not Available Start: 01-03-2024 End: 01-03-2024 ambulatory Trey Vallejo Facility:[facility] Start: 01-03-2024 End: 01-03-2024 ambulatory DPM Trey Vallejo Work Phone: [facility] Work Phone: Start: 01-03-2024 End: 01-03-2024 Departed Referred DPM Trey Vallejo Work Phone: [facility] [place] [facility] Start: 12-29-2023 End: 12-29-2023 ambulatory RUBÉN GEIGER Not Available Start: 11-29-2023 End: 11-30-2023 ambulatory Diallo Beauchamp MD Facility:[facility] Start: 10-18-2023 End: 10-19-2023 ambulatory Diallo Beauchamp MD Facility:[facility] Start: 09-27-2023 End: 09-27-2023 ambulatory RUBÉN GEIGER Not Available Start: 08-30-2023 End: 08-31-2023 ambulatory Diallo Beauchamp MD Facility:[facility] Start: 07-12-2023 End: 07-13-2023 ambulatory Diallo Beauchamp MD Facility:[facility] Start: 06-14-2023 End: 06-15-2023 ambulatory Kirkus Woo Beauchamp MD Facility:[facility] Start: 03-11-2023 End: 03-11-2023 ambulatory Rubén Geiger Facility:[facility] Start: 12-06-2022 End: 12-06-[address] VENUS MENDEZ . Facility:[facility] Start: 12-05-2022 Encounter for genera l adult medical examination without abnormal findings DR VENUS MENDEZ . [facility] Start: 12-01-2022 End: 12-02-2022 ambulatory [...] encounter procedure Viola Grullon [facility] Start: 01-04-2022 End: 01-05-[address] VENUS MENDEZ . Facility: Start: 01-30-2019 End: 02-01-2019 Evaluation and management of inpatient PROVIDER UNKNOWN Facility:[facility] Start: 08-17-2018 End: 08-18-2018 Patient encounter procedure PROVIDER UNKNOWN Facility:[facility] Procedures Date Procedure Procedure Detail Performing Clinician Start: 12-01-[address] FRANKLIN MENDEZ . Comment on above: Performed By: #### P [facility] #### [facility] [address] [place] [address] Dr. Shabnam Rae Start: 01-30-2019 FUSION CERV JT W INT BD FUS DEV, ANT APPR A COL, OPEN [facility] Start: 01-30-2019 REMOVAL OF INT FIX F ROM CERVCAL VERTEBRA, OPEN APPROACH [facility] Start: 01-23-2019 Antibody screen PROVIDE R UNKNOWN Comment on above: Performed By: #### 5 7307, 64172 #### [facility] [address] Start: 08-17-2018 ANESTH SPINE CORD SURGERY [...] units Performed By: #### 6 2586 #### [facility] [address] [facility]. [address] Colonoscopy Viola Lue Hemorrhoids (disorder) Viola Lue Hernia of abdominal cavity (disorder) Viola Lue Tonsillectomy [employer] [facility] Payers Date Payer Category Payer Self-pay [id number] 2022 Medicaid [id number] 2022 Unknown 1970 Unknown [id number] 2.16.8 [id number] 1970 Unknown [id number] 2.16.8 40.1.749181.3.579.2.647 1970 Unknown [id number] 2.16.84 0.1.518258.3.579.2.593 1970 Unknown [id number] 2.16.84 0.1.936793.3.579.2.593 1970 Unknown [id number] 2.16.84 0.1.738245.3.579.2.593 1970 Unknown [id number] 2.16.84 0.1.997783.3.579.2.593 1970 Unknown [id number] 2.16.84 0.1.440595.3.579.2.593 1970 Unknown [id number] 2.16.84 0.1.224137.3.579.2.593 1970 Unknown [id number] 2.16. 840.1.341123.3.579.2.196 1970 Unknown [id number] 2.16. 840.1.254434.3.579.2.196 1970 Unknown [id number] 2.16. 840.1.291271.3.579.2.196 1970 Unknown [id number] 2.16. 840.1.357766.3.579.2.196 1970 Unknown [id number] 2.16. 840.1.400024.3.579.2.196 1970 Unknown [id number] 2.16.84 0.1.619775.3.579.2.1259 1970 Unknown [id number] 2.16.84 0.1.267935.3.579.2.1259 1970 Unknown [id number] 2.16.84 0.1.935326.3.579.2.1259 1970 Unknown [id number] 2.16.84 0.1.866736.3.579.2.1259 1959 Unknown [id number] Unknown [id number] Unknown [id number] 2.16.8 40.1.330501.3.579.2.531 Unknown [id number] 2.16.8 40.1.671278.3.579.2.531 Social History Date Type Detail Facility Tobacco smoking status No Smokin g Status Entered [facility] Sex Assigned At Male [facility] Start: 05-15-2018 Tobacco smoking stat us NHIS Ex-smoker (finding) [facility] Start: 1970 Sex Assigned At Male [facility] Functional Status Date Assessment Result Facility 02-25-2022 Functional Status N/A [facility] Progress note 06-09-2023 Note Date & Type Note Facility 06-09-2023 Note [facility] Continue GDMT- Diuretic therapy Monitor daily weights, I&O, fluid restriction 1.5-2L/day, renal function and electrolytes- [facility] Clinical Note 03-26-2022 Note Date & [...] by: ALVINA CAICEDO Date: 2022-03-26 10:47 [facility] Discharge instructions 02-25-2022 Note Date & [...] Watch the hydrocele for any changes. Take uapz-vnr-swflukn and prescription medicines only as told by [...] 02/17/2011 Document Revised: 09/10/2018 Document Reviewed: 09/10/2018 [employer] Patient Education 2020 [employer]. Follow Up Care 01/28/2022 10:36:35 With:Mitchel DELGADO, Viola Cohn, URL, URO Address: When: Unknown [facility] Evaluation + Plan note Note Date & Type Note Facility Evaluation + Plan note No data available for this section [facility] Evaluation note Note Date & Type Note Facility Evaluation note [facility] Progress note Note Date & Type Note Facility Progress note No data available for this section [facility] Summary Purpose Family History No Family History Records FoundNo Family History Records FoundNo Family History Records FoundNo Family History Records FoundNo Family History Records FoundNo Family History Records FoundNo Family History Records Found Advance Directives No Advanced Directives Records Found Advance Directive Response Recorded Date/ Time Advance Directives No May 12:42pm Hospital Course Note MR#: [id number] I [facility] Pt. Name: Matty Garces Admitted: 01/30/2019 [...] and content) DATE CREATED AUTHOR 07/19/2019 [facility] DATE CREATED AUTHOR AUTHOR'S ORGANIZ ATION 02/27/2022 [facility] DATE CREATED AUTHOR AUTHOR'S ORGANIZ ATION 12/08/2022 [facility] DATE CREATED AUTHOR AUTHOR'S ORGANIZ ATION 06/17/2023 [facility] DATE CREATED AUTHOR AUTHOR'S ORGANIZ ATION 12/03/2023 [facility] DATE CREATED AUTHOR AUTHOR'S ORGANIZ ATION 01/08/2024 [facility] DATE CREATED AUTHOR AUTHOR'S ORGANIZ ATION 01/15/2024 [facility] Care [...] BE BASED ON THE PRIMARY CLINICAL RECORDS. [employer] provides no warranty or guarantee of the accuracy or completeness of information in this document.
== END 2024-03-01 12:59 | disposition home or self-care (01) ==
LOC: PM 12:59
PROVIDERS: PCP Family Medicine; Visit Provider Nurse Practitioner
DX: M47.812 Spondylosis without myelopathy or radiculopathy, cervical region (principal); G89.4 Chronic pain syndrome; M47.816 Spondylosis without myelopathy or radiculopathy, lumbar region; M25.561 Pain in right knee; M25.562 Pain in left knee
CPT/HCPCS: G0463

== ENCOUNTER 2024-03-14 07:20 | Observation (INO) | payer MEDICAID, SELFPAY ==
[2024-03-14] VITALS (12 sets, daily range): BP systolic 127–142; BP diastolic 78–94; PULSE 80–102; TEMP 36.4–37; O2SAT 90–96; BMI 39.6; BMI 37.8
--- OUTSIDE RECORDS SUMMARY | 2024-03-14 07:33 | XMS_ITS | CCD ---
Author Organization [facility] Care Team Providers Care Mirror Machine Feeder Name Role Phone UNKNOWN, PROVIDER Admitting Unavailable UNKNOWN, PROVIDER Attending Unavailable VENUS MENDEZ Referring Unavailable VENUS MENDEZ Primary Care Unavailable PA Procedure Practitioner Unavailab le UNKNOWN, PROVIDER Surgeon Unavailable PA Procedure Practitioner Unavailab le SANDRA BILL Surgeon Unavailable UNKNOWN, PROVIDER Admitting Unavailable UNKNOWN, PROVIDER Attending Unavailable VENUS MENDEZ Referring Unavailable VENUS MENDEZ Primary Care Unavailable PA Procedure Practitioner Unavailab le UNKNOWN, PROVIDER Surgeon [...] source) Aspartame Drug Allergy 08-17-20 18 [facility] [place] [facility] Repository (1 source) avoid; Translations: [Unknown] Propensity to adverse reactions (disorder) 08-17-20 18 [facility] Repository (1 source) vitamin B12; Translations: [cyanocobalamin] Drug Allergy Unknown (qualifier value) [facility] (1 source) Acetaminophen / HYDROcodone Drug Allergy [facility] Rep[facility] (1 source) Corticosteroids Drug allergy (disorder) [facility] (1 source) fentaNYL Drug Allergy [facility] Rep[facility] (1 source) Misc-Food; Translations: [Misc-Food] Food allergy (disorder) [facility] Rep[facility] (1 source) Corticosteroids Drug allergy (disorder) 05-14-20 18 [place] Repository Medications Current Medications Medication Drug Class(es) [...] Bedtime May 14, 2018 12:00am Vit D3-Folic Tuaf-K3-G6-B12 (1 source) Start: 05-14-2018 take 1 tablet by mouth once daily Vit D3-Folic Gmyz-U8-I9-B12 Active 1 TAB PO Daily May 14, [...] Onset: 3 Chronic Other aftercare (1 source) [facility] (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; 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] Onset: 3 Episodic Other aftercare (1 source) 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; Translations: [OTH 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] Onset: 3 Episodic Other [...] Test Name Value Interpretation Reference Range Facility [facility] 01-03-2024 L Specimen: [id number] Received: 01/03/24 Status: GIOVANNI Jacinto Num: [id number] Spec Type: Surgical Subm Dr: Trey Vallejo DPM, MS Tissues: A Bone Fragments - Pathologic Fracture (PROXIMAL PHALANX RIGHT HALLU) Procedures: HE/2, Gross/Micro L5, Decalcification Age/ Patient Sex Location Account Attending Physician Matty Garces 53/M LABELL [id number] Trey Vallejo DPM, MS SPEC NUM: [id number] RECD: 01/03/24 STATUS: GIOVANNI KRAMER NUM: [id number] SOFY: 01/03/[address]: Trey Vallejo DPM, MS ENTERED: 01/03/[address] [facility] DR: Toño,Ayesha SPEC TYPE: Surgical DEPT: SEEMA [...] Sectioning reveals unremarkable yellow, spongy bone matrix. Plant Reliability Engineer sections are submitted in A1 following decal. Clinical history: Non-pressure chronic ulcer . Right hallux IPJ arthroplasty with wound debridement and graft application TW Specimen: [id number] Received: 01/03/24 Status: GIOVANNI Jacinto Num: [id number] Spec Type: Surgical Subm Dr: Trey Vallejo,DPJose Eduardo, MS Tissues: A Bone Fragments - Pathologic Fracture (PROXIMAL PHALANX RIGHT HALLU) Procedures: HE/2, Gross/Micro L5, Decalcification Patient: Matty Garces [id number] (Continued) Specimen: [id number] Received: 01/03/24 (Continued) Signed (signature on file) Viral Rae MD 01/06/24 1838 Specimen: [id number] Received: 01/03/24 Status: GIOVANNI Ophelia Num: [id number] Spec Type: Surgical Subm Dr: Trey Vallejo,DPM, MS Tissues: A Bone Fragments - Pathologic Fracture (PROXIMAL PHALANX RIGHT HALLU) Procedures: HE/2, Gross/Micro L5, Decalcification Patient: Matty Garces [id number] (Continued) Specimen: [id number] Received: 01/03/24 (Continued) CPT Codes 25626 Specimen: [id number] Received: 01/03/24 Status: GIOVANNI Jacinto Num: [id number] Spec Type: Surgical Subm Dr: Trey Vallejo,DPM, MS Tissues: A Bone Fragments - Pathologic Fracture (PROXIMAL PHALANX RIGHT HALLU) Procedures: HE/2, Gross/Micro L5, Decalcification Patient: Matty Garces [id number] (Continued) Signed (signature on file) Viral Rae MD 01/06/241837 Normal [facility] XR cervical spine 5V*on 02-12 XR cervical spine 5V* [facility] [address] XRay Report Signed Patient: Matty Garces MR#: [id number] [birth year] : 1970 Acct:[id number] Age/Sex: 52 / M ADM Date: 03/11/23 Loc: ICXD Room: Type: [facility] Attending Dr: Rubén Geiger MD Copies [...] Crow Contreras M.D.03/11/2023 3:48 PM Dictation Location: [place] [address] Transcribed By: [facility] 03/11/23 1548 Dictated By: Crow Contreras DO 03/11/23 1544 Signed By: 03/11/23 1548 Normal [facility] Physician [facility] CT CSPINE WO CONon CT [...] by: ANGEL JORDAN Date: 2022-12-06 06:37 Normal [facility] CT FACIAL BONES WO CONon CT [...] ANGEL JORDAN Date: 2022-12-06 06:41 Normal [facility] CT HEAD WO CONon 12-06-2022 [...] ANGEL JORDAN Date: 2022-12-06 06:39 Normal [facility] XR ELBOW RT MIN 3 VIEWSon XR ELBOW RT MIN 3 VIEWS Exam: Radiographs: XR ELBOW RT MIN 3 VIEWS Reason for exam: Elbow pain Comparison: None IMPRESSION: Right elbow degenerative changes. Olecranon spur. Remainder of the right elbow is unremarkable. Electronically authenticated by: MICHAEL CASANOVA Date: 2022-12-06 07:22 Normal [facility] XR FOREARM RT 2Von 3 XR FOREARM RT 2V Exam: Radiographs: XR FOREARM RT 2V Reason for exam: Forearm pain Comparison: None IMPRESSION: Mild degenerative changes in the right elbow and wrist. Right forearm is otherwise unremarkable. Electronically authenticated by: MICHAEL CASANOVA Date: 2022-12-06 08:07 Normal [facility] PSA, FREE AND TOTAL RATIOon 12-03-2022 % Free PSA 9.0 % Normal [facility] Comment on above: [...] men. Performed By: #### P SAFREE #### [facility] [address] [place] [address] [address] Shabnam Rae Prostate specific Ag [Mass/Vol] 5.9 ng/mL Critically high 0.0-4.0 [facility] Comment on above: Result Comment: Roch e ECLIA methodology. . According to the [place] [employer], Serum PSA should decrease and [...] disease. Performed By: #### P SAFREE #### [facility] [address] [place] [address] [address] Shabnam Rae PSA, Free 0.53 ng/mL Normal N/A [facility] Comment on above: Result Comment: Roch e ECLIA methodology. Performed By: #### P SAFREE #### [facility] [address], [place] [address] Dr. Shabnam Rae INSULINon 12-02-2022 Insulin 20.2 uIU/mL Normal 2.6-24.9 [facility] Comment on above: Performed By: #### P SASC #### [facility] [address], [place] [address] Dr. Shabnam Rae TESTOSTERONE, TOTALon 2022 Testosterone [Mass/Vol] 256 ng/dL Critically low 264-916 [facility] Comment on above: Result Comment: Adul t male reference interval is based on a population of healthy nonobese males (BMI <30) between 19 and 39 years old. adia Ch.al. JCEM 2017,102;5165-7236. PMID: [id number]. Performed By: #### P SASC #### [facility] [address] [place] [address] Dr. Shabnam Rae CBC AUTO DIFFon 12-01-2022 BASO # 0.1 103/ul Normal 0.0-0.1 [facility] Comment on above: Performed By: #### P SASC #### [facility] [address] [place] [address] Dr. Shabnam Rae Basophils/100 WBC (Bld) 1.0 % Normal 0.2-2.0 [facility] Comment on above: Performed By: #### P SASC #### [facility] [address] [place] [address] Dr. Shabnam Rae EO # 0.1 103/ul Normal 0.0-0.7 [facility] Comment on above: Performed By: #### P SASC #### [facility] [address] [place] [address] Dr. Shabnam Rae Eosinophils/100 WBC (Bld) 1.8 % Normal 0.9-7.0 [facility] Comment on above: Performed By: #### P SASC #### [facility] [address] [place] [address] Dr. Shabnam Rae Erythrocyte distribution width (RBC) [Ratio] 14.8 % Normal 11.0-15.0 [facility] Comment on above: Performed By: #### P SASC #### [facility] [address] [place] [address] Dr. Shabnam Rae Hematocrit (Bld) [Volume fraction] 49.9 % Normal 42.0-54.0 [facility] Comment on above: Performed By: #### P SASC #### [facility] [address] [place] [address] Dr. Shabnam Rae Hemoglobin (Bld) [Mass/Vol] 16.0 g/dL Normal 14.0-18.0 [facility] Comment on above: Performed By: #### P SASC #### [facility] [address] [place] [address] [address] Shabnam Rae IG # 0.04 10e3/ul Critically high 0.00-0.[address] [facility] Comment on above: Performed By: #### P SASC #### [facility] [address] [place] [address] [address] Shabnam Rae IG % 0.6 % Critically high 0.0-0.5 [facility] Comment on above: Performed By: #### P SASC #### [facility] [address] [place] [address] Dr. Shabnam Rae LYMPH # 1.0 103/ul Critically low 1.2-3.8 [place] Comment on above: Performed By: #### P SASC #### [facility] [address] [place] [address] Dr. Shabnam Rae Lymphocytes/100 WBC (Bld) 16.2 % Critically low 20.5-60.0 [facility] Comment on above: Performed By: #### P SASC #### [facility] [address] [place] [address] Dr. Shabnam Rae MANUAL DIFF REQ NO Normal [facility] Comment on above: Performed By: #### P SASC #### [facility] [address] [place] [address] Dr. Shabnam Rae MCH (RBC) [Entitic mass] 27.7 pg Normal 25.9-34.0 [facility] Comment on above: Performed By: #### P SASC #### [facility] [address] [place] [address] Dr. Shabnam Rae MCHC (RBC) [Mass/Vol] 32.1 g/dL Normal 29.9-35.2 [facility] Comment on above: Performed By: #### P SASC #### [facility] [address] [place] [address] Dr. Shabnam Rae MCV (RBC) [Entitic vol] 86.3 fL Normal 80.0-94.0 [facility] Comment on above: Performed By: #### P SASC #### [facility] [address] [place] [address] [address] Shabnam Rae MONO # 0.5 103/ul Normal 0.3-0.8 [facility] Comment on above: Performed By: #### P SASC #### [facility] [address] [place] [address] Dr. Shabnam Rae Monocytes/100 WBC (Bld) 7.6 % Normal 1.7-12.0 [facility] Comment on above: Performed By: #### P SASC #### [facility] [address] [place] [address] Dr. Shabnam Rea NEUT # 4.6 103/ul Normal 1.4-6.5 [facility] Comment on above: Performed By: #### P SASC #### [facility] [address] [place] [address] Dr. Shabnam Rae Neutrophils/100 WBC (Bld) 72.8 % Normal 43.0-75.0 [facility] Comment on above: Performed By: #### P SASC #### [facility] [address] [place] [address] Dr. Shabnam Rae Platelet mean volume (Bld) [Entitic vol] 9.8 fL Normal 9.5-13.5 [facility] Comment on above: Performed By: #### P SASC #### [facility] [address] [place] [address] Dr. Shabnam Rae PLT 203 103/ul Normal 150-450 [facility] Comment on above: Performed By: #### P SASC #### [facility] [address] [place] [address] Dr. Shabnam Rae RBC 5.78 106/ul Normal 4.70-6.10 [facility] Comment on above: Performed By: #### P SASC #### [facility] [address] [place] [address] Dr. Shabnam Rae WBC 6.3 103/ul Normal 4.0-11.0 [facility] Comment on above: Performed By: #### P SASC #### [facility] [address] [place] [address] [address] Shabnam Rae FREE THYROXINE INDEX T7on FTI 2.05 Normal 1.30-4.50 [facility] Comment on above: Performed By: #### T SH, CMP, LIPID, T7, URIC #### [facility] [address] [place] [address] [address] Shabnam Rae T3U 33.0 % Normal 33.0-40.0 [facility] Comment on above: Performed By: #### T SH, CMP, LIPID, T7, URIC #### [facility] [address] [place] [address] [address] Shabnam Rae T4 [Mass/Vol] 6.20 ug/dL Normal 4.50-12.10 [facility] Comment on above: Performed By: #### T SH, CMP, LIPID, T7, URIC #### [facility] [address] [place] [address] Dr. Shabnam Rae GLYCOHEMOGLOBIN A1Con 2022 ADA RECOMMENDATION SEE BELOW Normal [facility] [place] Comment on above: Result Comment: ADA RECOMMENDED LIMIT 4.0 - 6.0 ADA THERAPEUTIC TARGET < 7.0 ACTION SUGGESTED > 7.0 Performed By: #### P SASC #### [facility] [address] [place] [address] Dr. Shabnam Rae Glucose [Mass/Vol] 114 mg/dL Normal [facility] Comment on above: Performed By: #### P SASC #### [facility] [address] [place] [address] Dr. Shabnam Rae HbA1c (Bld) [Mass fraction] 5.6 % Normal 4.5-6.2 [facility] Comment on above: Performed By: #### P SASC #### [facility] [address] [place] [address] Dr. Shabnam Rae LIPID PROFILEon 12-01-2022 CHOL-HDL RATIO NORM SEE BELOW Normal [facility] Comment on above: Result Comment: 3.3 - 4.4 LOW RISK 4.4 - 7.1 AVERAGE RISK 7.1 - 11.0 MODERATE RISK >11.0 HIGH RISK Performed By: #### T SH, CMP, LIPID, T7, URIC #### [facility] [address] [place] [address] [address] Shabnam Rae Cholesterol [Mass/Vol] 176 mg/dL Normal <=200 [facility] Comment on above: Performed By: #### T SH, CMP, LIPID, T7, URIC #### [facility] [address] [place] [address] [address] Shabnam Rae Cholesterol in HDL [Mass/Vol] 48 mg/dL Normal 40-60 [facility] Comment on above: Performed By: #### T SH, CMP, LIPID, T7, URIC #### [facility] [address] [place] [address] [address] Shabnam Rae Cholesterol in LDL [Mass/Vol] 108.2 mg/dL Normal [facility] Comment on above: Performed By: #### T SH, CMP, LIPID, T7, URIC #### [facility] [address] [place] [address] [address] Shabnam Rae Cholesterol.total/Ch olesterol in HDL [Mass ratio] 3.7 {ratio} Normal [facility] Comment on above: Performed By: #### T SH, CMP, LIPID, T7, URIC #### [facility] [address] [place] [address] [address] Shabnam Rae HDL NORMAL > or = 60 mg/dl - LOW CARDIOVASCULAR RISK <40 mg/dl - HIGH CARDIOVASCULAR RISK Normal [facility] Comment on above: Performed By: #### T SH, CMP, LIPID, T7, URIC #### [facility] [address] [place] [address] [address] Shabnam Rae LDL CALC NORMAL SEE BELOW Normal [facility] Comment on above: Result Comment: <100 mg/dl OPTIMAL 100 - 129 mg/dl NEAR OR ABOVE OPTIMAL 130 - 159 mg/dl BORDERLINE HIGH 160 - 189 mg/dl HIGH >190 mg/dl VERY HIGH Performed By: #### T SH, CMP, LIPID, T7, URIC #### [facility] [address] [place] [address] [address] Shabnam Rae Triglyceride [Mass/Vol] 99 mg/dL Normal <=150 [facility] Comment on above: Performed By: #### T SH, CMP, LIPID, T7, URIC #### [facility] [address] [place] [address] [address] Shabnam Rae VLDL CALC 19.8 mg/dL Normal [facility] Comment on above: Performed By: #### T SH, CMP, LIPID, T7, URIC #### [facility] [address] [place] [address] Dr. Shabnam Rae PROF 14(COMP METB)on 023 Albumin [Mass/Vol] 4.1 g/dL Normal 3.4-5.0 [facility] [place] Comment on above: Performed By: #### T SH, CMP, LIPID, T7, URIC #### [facility] [address] [place] [address] Dr. Shabnam Rae Albumin/Globulin [Mass ratio] 1.1 {ratio} Normal [facility] Comment on above: Performed By: #### T SH, CMP, LIPID, T7, URIC #### [facility] [address] [place] [address] Dr. Shabnam Rae ALP [Catalytic activity/Vol] 101 U/L Normal 46-116 [facility] Comment on above: Performed By: #### T SH, CMP, LIPID, T7, URIC #### [facility] [address] [place] [address] Dr. Shabnam Rae ALT [Catalytic activity/Vol] 26 U/L Normal 16-63 [facility] Comment on above: Performed By: #### T SH, CMP, LIPID, T7, URIC #### [facility] [address] [place] [address] Dr. Shabnam Rae Anion gap [Moles/Vol] 10.1 mmol/L Normal [facility] Comment on above: Performed By: #### T SH, CMP, LIPID, T7, URIC #### [facility] [address] [place] [address] Dr. Shabnam Rae AST [Catalytic activity/Vol] 19 U/L Normal 15-37 [facility] Comment on above: Performed By: #### T SH, CMP, LIPID, T7, URIC #### [facility] [address] [place] [address] [address] Shabnam Rae Bilirubin [Mass/Vol] 0.8 mg/dL Normal 0.2-1.0 [facility] Comment on above: Performed By: #### T SH, CMP, LIPID, T7, URIC #### [facility] [address] [place] [address] [address] Shabnam Rae Calcium [Mass/Vol] 9.5 mg/dL Normal 8.5-10.1 [facility] [place] Comment on above: Performed By: #### T SH, CMP, LIPID, T7, URIC #### [facility] [address] [place] [address] Dr. Shabnam Rae Chloride [Moles/Vol] 102 mmol/L Normal 98-107 [facility] Comment on above: Performed By: #### T SH, CMP, LIPID, T7, URIC #### [facility] [address] [place] [address] Dr. Shabnam Rae CO2 [Moles/Vol] 32.4 mmol/L Critically high 21.0-32.0 [facility] Comment on above: Performed By: #### T SH, CMP, LIPID, T7, URIC #### [facility] [address] [place] [address] Dr. Shabnam Rae Creatinine [Mass/Vol] 1.00 mg/dL Normal 0.70-1.30 [facility] Comment on above: Performed By: #### T SH, CMP, LIPID, T7, URIC #### [facility] [address] [place] [address] Dr. Shabnam Rae EGFR-AF [place] >60 Normal >=60 [facility] Comment on above: Performed By: #### T SH, CMP, LIPID, T7, URIC #### [facility] [address] [place] [address] Dr. Shabnam Rae EGFR-NON AF [place] >60 Normal >=60 [facility] Comment on above: Performed By: #### T SH, CMP, LIPID, T7, URIC #### [facility] [address] [place] [address] [address] Shabnam Rae Globulin (S) [Mass/Vol] 3.8 g/dL Normal [facility] Comment on above: Performed By: #### T SH, CMP, LIPID, T7, URIC #### [facility] [address] [place] [address] Dr. Shabnam Rae Glucose [Mass/Vol] 94 mg/dL Normal 74-106 [facility] Comment on above: Performed By: #### T SH, CMP, LIPID, T7, URIC #### [facility] [address] [place] [address] Dr. Shabnam Rae Potassium [Moles/Vol] 3.5 mmol/L Normal 3.5-5.1 [facility] Comment on above: Performed By: #### T SH, CMP, LIPID, T7, URIC #### [facility] [address] [place] [address] Dr. Shabnam Rae Protein [Mass/Vol] 7.9 g/dL Normal 6.4-8.2 [facility] Comment on above: Performed By: #### T SH, CMP, LIPID, T7, URIC #### [facility] [address] [place] [address] Dr. Shabnam Rae Sodium [Moles/Vol] 141 mmol/L Normal 136-145 [facility] Comment on above: Performed By: #### T SH, CMP, LIPID, T7, URIC #### [facility] [address] [place] [address] Dr. Shabnam Rae Urea nitrogen [Mass/Vol] 15.0 mg/dL Normal 7.0-18.0 [facility] Comment on above: Performed By: #### T SH, CMP, LIPID, T7, URIC #### [facility] [address] [place] [address] Dr. Shabnam Rae Urea nitrogen/Creatinine [Mass ratio] 15.0 mg/mg Normal [facility] Comment on above: Performed By: #### T SH, CMP, LIPID, T7, URIC #### [facility] [address] [place] [address] Dr. Shabnam Rae TSHon 12-01-2022 TSH 1.504 uIU/mL Normal 0.358-3.740 [facility] Comment on above: Performed By: #### T SH, CMP, LIPID, T7, URIC #### [facility] [address] [place] [address] Dr. Shabnam Rae URIC ACID SERUMon 12-01-2022 Urate [Mass/Vol] 6.9 mg/dL Normal 3.5-7.2 [facility] Comment on above: Performed By: #### T SH, CMP, LIPID, T7, URIC #### [facility] [address] [place] [address] Dr. Shabnam Rae TESTOSTERONE, TOTALon 2021 Testosterone [Mass/Vol] 244 ng/dL Critically low 264-916 [facility] Comment on above: Result Comment: Adul t male reference interval is based on a population of healthy nonobese males (BMI <30) between 19 and 39 years old. Travison, et.al. JCEM 2017,102;7052-8039. PMID: [id number]. Performed By: #### P SAFREE #### [facility] [address] [place] [address] Dr. Shabnam Rae TESTOSTERONE, FREE,DIRECT, T OTALon 03-16-2022 Free Testosterone(Direct) 2.1 pg/mL Critically low 7.2-24.0 [facility] Comment on above: Result Comment: Perf ormed at: BN Performed By: #### C VDTBH #### [facility] [address] [place] [address] Dr. Shabnam Rae Testosterone [Mass/Vol] 252 ng/dL Critically low 264-916 [facility] Comment on above: Result Comment: Adul t male reference interval is based on a population of healthy nonobese males (BMI <30) between 19 and 39 years old. Travison, et.al. JCEM 2017,102;7566-3925. PMID: [id number]. Performed at: CB Performed By: #### C VDTBH #### [facility] [address], [place] [address] Dr. Shabnam Rae Formson 02-26-2022 Forms [id number] 7#1.00CD:127 Normal [facility] Screenson 02-26-2022 Screens [id number] 7#1.00CD:127 Normal [facility] Screens [id number] #1.00CD:127 Normal [facility] Urology Office/Clinic Noteon 02-26-2022 Urology Office/Clinic [...] data (more content not included)... Normal [facility] Comment on above: Result Comment: Elec tronically Signed By: Viola Grullon MD\.br\Date and Time Signed: 02/26/22 00:20 EDT\.br\Electronically Co-Signed By: Helen Leung\.br\Date and Time Co-Signed: 02/25/22 11:16 EDT Ambulatory Visit Summaryon 0 02-25-2022 Ambulatory Visit Summary MATTY GARCES :1970 Visit Date:02/25/2022 Ambulatory Visit Instructions Your Diagnosis Hydrocele Varicocele BPH without urinary obstruction Tests Performed Urnls Dip Stick Auto w/o Microscopy POC 52607 Your Care Team Attending Physician - Viola [...] Urnls Dip Stick Auto w/o Microscopy POC 70633 (02/25/2022) Bilirubin Urine Dipstick - Negative Blood Urine Dipstick - Negative Glucose Urine Dipstick - Negative Ketones Urine Dipstick - Negative Leukocytes Urine Dipstick - Negative Nitrite Urine Dipstick - Negative Protein Urine Dipstick - Negative Specific [place] Urine Dipstick - >=1.030 Urine Appearance Urine [...] the hydrocele for any changes. ? Take yozx-fif-ayoownh and prescription medicines only as told by [...] intended t (more content not included)... Normal [facility] Patient Educationon 02-26-20 Patient Education Urology [...] the hydrocele for any changes. ? Take qyji-fgz-bqckguv and prescription medicines only as told by [...] 02/17/2011 Document Revised: 09/10/2018 Document Reviewed: 09/10/2018 [employer] Patient Education ? 2019 [employer] Normal [facility] ED Note-Physicianon 02-04-20 22 ED Note-Physician [id number] 62#1.00CD:127 Normal [facility] RAD - Ultrasound Reporton RAD - Ultrasound Report [id number] #1.00CD:127 Normal [facility] RAD - CT Reporton 02-02-2022 RAD - CT Report [id number]#1.00CD:127 Normal [facility] RAD - CT Report [id number] 75#1.00CD:127 Normal [facility] CBC AUTO DIFFon 01-05-2022 BASO # 0.0 103/ul Normal 0.0-0.1 [facility] Comment on above: Performed By: #### P SAFREE #### [facility] [address] [address] [address] Shabnam Rae Basophils/100 WBC (Bld) 0.6 % Normal 0.2-2.0 [facility] Comment on above: Performed By: #### P SAFREE #### [facility] [address] [place] [address] Dr. Shabnam Rae EO # 0.1 103/ul Normal 0.0-0.7 [facility] Comment on above: Performed By: #### P SAFREE #### [facility] [address] [place] [address] Dr. Shabnam Rae Eosinophils/100 WBC (Bld) 2.1 % Normal 0.9-7.0 [facility] Comment on above: Performed By: #### P SAFREE #### [facility] [address] [place] [address] Dr. Shabnam Rae Erythrocyte distribution width (RBC) [Ratio] 13.1 % Normal 11.0-15.0 [facility] Comment on above: Performed By: #### P SAFREE #### [facility] [address] [place] [address] Dr. Shabnam Rae Hematocrit (Bld) [Volume fraction] 43.1 % Normal 42.0-54.0 [facility] Comment on above: Performed By: #### P SAFREE #### [facility] [address] [place] [address] Dr. Shabnam Rae Hemoglobin (Bld) [Mass/Vol] 13.7 g/dL Critically low 14.0-18.0 [facility] Comment on above: Performed By: #### P SAFREE #### [facility] [address] [address] [address] Shabnam Rae IG # 0.04 10e3/ul Critically high 0.00-0.[address] [facility] Comment on above: Performed By: #### P SAFREE #### [facility] [address] [address] [address] Shabnma Rae IG % 0.6 % Critically high 0.0-0.5 [facility] Comment on above: Performed By: #### P SAFREE #### [facility] [address] [address] [address] Shabnam Rae LYMPH # 0.9 103/ul Critically low 1.2-3.8 [facility] Comment on above: Performed By: #### P SAFREE #### [facility] [address] [place] [address] Dr. Shabnam Rae Lymphocytes/100 WBC (Bld) 13.1 % Critically low 20.5-60.0 [facility] Comment on above: Performed By: #### P SAFREE #### [facility] [address] [address] [address] Shabnam Rae MANUAL DIFF REQ NO Normal [facility] Comment on above: Performed By: #### P SAFREE #### [facility] [address] [place] [address] Dr. Shabnam Rae MCH (RBC) [Entitic mass] 29.5 pg Normal 25.9-34.0 [facility] Comment on above: Performed By: #### P SAFREE #### [facility] [address] [address] [address] Shabnam Rae MCHC (RBC) [Mass/Vol] 31.8 g/dL Normal 29.9-35.2 [facility] Comment on above: Performed By: #### P SAFREE #### [facility] [address] [place] [address] Dr. Shabnam Rae MCV (RBC) [Entitic vol] 92.9 fL Normal 80.0-94.0 [facility] Comment on above: Performed By: #### P SAFREE #### [facility] [address] [address] [address] Shabnam Rae MONO # 0.4 103/ul Normal 0.3-0.8 [facility] Comment on above: Performed By: #### P SAFREE #### [facility] [address] [address] [address] Shabnam Rae Monocytes/100 WBC (Bld) 5.4 % Normal 1.7-12.0 [facility] Comment on above: Performed By: #### P SAFREE #### [facility] [address] [address] [address] Shabnam Rae NEUT # 5.2 103/ul Normal 1.4-6.5 [facility] Comment on above: Performed By: #### P SAFREE #### [facility] [address] [place] [address] Dr. Shabnam Rae Neutrophils/100 WBC (Bld) 78.2 % Critically high 43.0-75.0 [facility] Comment on above: Performed By: #### P SAFREE #### [facility] [address] [place] [address] Dr. Shabnam Rae Platelet mean volume (Bld) [Entitic vol] 10.9 fL Normal 9.5-13.5 [facility] Comment on above: Performed By: #### P SAFREE #### [facility] [address] [place] [address] Dr. Shabnam Rae PLT 153 103/ul Normal 150-450 [facility] Comment on above: Performed By: #### P SAFREE #### [facility] [address] [place] [address] Dr. Shabnam Rae RBC 4.64 106/ul Critically low 4.70-6.10 [facility] Comment on above: Performed By: #### P SAFREE #### [facility] [address] [address] [address] Shabnam Rae WBC 6.6 103/ul Normal 4.0-11.0 [facility] Comment on above: Performed By: #### P SAFREE #### [facility] [address] [place] [address] Dr. Shabnam Rae CRPon 01-05-2022 CRP 0.9 mg/dL Normal <=1.0 [facility] Comment on above: Performed By: #### P SAFREE #### [facility] [address] [place] [address] Dr. Shabnam Rae PROF 14(COMP METB)on 022 Albumin [Mass/Vol] 3.6 g/dL Normal 3.4-5.0 [facility] Comment on above: Performed By: #### P SAFREE #### [facility] [address] [place] [address] Dr. Shabnam Rae Albumin/Globulin [Mass ratio] 1.0 {ratio} Normal [facility] Comment on above: Performed By: #### P SAFREE #### [facility] [address] [place] [address] Dr. Shabnam Rae ALP [Catalytic activity/Vol] 114 U/L Normal 46-116 [facility] Comment on above: Performed By: #### P SAFREE #### [facility] [address] [place] [address] Dr. Shabnam Rae ALT [Catalytic activity/Vol] 26 U/L Normal 16-63 [facility] Comment on above: Performed By: #### P SAFREE #### [facility] [address] [place] [address] Dr. Shabnam Rae Anion gap [Moles/Vol] 9.3 mmol/L Normal [facility] Comment on above: Performed By: #### P SAFREE #### [facility] [address] [place] [address] Dr. Shabnam Rae AST [Catalytic activity/Vol] 19 U/L Normal 15-37 [facility] Comment on above: Performed By: #### P SAFREE #### [facility] [address] [place] [address] Dr. Shabnam Rae Bilirubin [Mass/Vol] 0.5 mg/dL Normal 0.2-1.0 [facility] Comment on above: Performed By: #### P SAFREE #### [facility] [address] [place], [place] [id number] Dr. Shabnam Rae Calcium [Mass/Vol] 8.9 mg/dL Normal 8.5-10.1 [facility] Comment on above: Performed By: #### P SAFREE #### [facility] [address] [place] [address] Dr. Shabnam Rae Chloride [Moles/Vol] 106 mmol/L Normal 98-107 [facility] Comment on above: Performed By: #### P SAFREE #### [facility] [address] [place] [address] Dr. Shabnam Rae CO2 [Moles/Vol] 30.7 mmol/L Normal 21.0-32.0 [facility] Comment on above: Performed By: #### P SAFREE #### [facility] [address] [place] [address] Dr. Shabnam Rae Creatinine [Mass/Vol] 1.15 mg/dL Normal 0.70-1.30 [facility] Comment on above: Performed By: #### P SAFREE #### [facility] [address] [place] [address] Dr. Shabnam Rae EGFR-AF [place]I >60 Normal >=60 [facility] Comment on above: Performed By: #### P SAFREE #### [facility] [address] [place] [address] Dr. Shabnam Rae EGFR-NON AF [place] >60 Normal >=60 [facility] Comment on above: Performed By: #### P SAFREE #### [facility] [address] [place] [address] Dr. Shabnam Rae Globulin (S) [Mass/Vol] 3.6 g/dL Normal [facility] Comment on above: Performed By: #### P SAFREE #### [facility] [address] [place] [address] Dr. Shabnam Rae Glucose [Mass/Vol] 117 mg/dL Critically high 74-106 [facility] Comment on above: Performed By: #### P SAFREE #### [facility] [address] [place] [address] Dr. Shabnam Rae Potassium [Moles/Vol] 4.0 mmol/L Normal 3.5-5.1 [facility] Comment on above: Performed By: #### P SAFREE #### [facility] [address] [address] [address] Shabnam Rae Protein [Mass/Vol] 7.2 g/dL Normal 6.1-8.2 [facility] Comment on above: Performed By: #### P SAFREE #### [facility] [address] [place] [address] Dr. Shabnam Rae Sodium [Moles/Vol] 142 mmol/L Normal 136-145 [facility] Comment on above: Performed By: #### P SAFREE #### [facility] [address] [place] [address] Dr. Shabnam Rae Urea nitrogen [Mass/Vol] 15.0 mg/dL Normal 7.0-18.0 [facility] Comment on above: Performed By: #### P SAFREE #### [facility] [address] [place] [address] Dr. Shabnam Rae Urea nitrogen/Creatinine [Mass ratio] 13.0 mg/mg Normal [facility] Comment on above: Performed By: #### P SAFREE #### [facility] [address] [place] [address] Dr. Shabnam Rae US SCROTUMon 01-05-2022 US [...] ALVINA CAICEDO Date: 2022-01-05 08:48 Normal [facility] CBC AUTO DIFFon 01-04-2022 BASO # 0.1 103/ul Normal 0.0-0.1 [facility] Comment on above: Performed By: #### C BC #### [facility] [address] [place] [address] Dr. Shabnam Rae Basophils/100 WBC (Bld) 0.8 % Normal 0.2-2.0 [facility] Comment on above: Performed By: #### C BC #### [facility] [address] [place] [address] Dr. Shabnam Rae EO # 0.1 103/ul Normal 0.0-0.7 [facility] Comment on above: Performed By: #### C BC #### [facility] [address] [place] [address] Dr. Shabnam Rae Eosinophils/100 WBC (Bld) 1.5 % Normal 0.9-7.0 [facility] Comment on above: Performed By: #### C BC #### [facility] [address] [place] [address] Dr. Shabnam Rae Erythrocyte distribution width (RBC) [Ratio] 12.8 % Normal 11.0-15.0 [facility] Comment on above: Performed By: #### C BC #### [facility] [address] [place] [address] Dr. Shabnam Rae Hematocrit (Bld) [Volume fraction] 40.3 % Critically low 42.0-54.0 [facility] Comment on above: Performed By: #### C BC #### [facility] [address] [place] [address] Dr. Shabnam Rae Hemoglobin (Bld) [Mass/Vol] 13.4 g/dL Critically low 14.0-18.0 [facility] Comment on above: Performed By: #### C BC #### [facility] [address] [place] [address] Dr. Shabnam Rae IG # 0.03 10e3/ul Normal 0.00-0.03 [facility] Comment on above: Performed By: #### C BC #### [facility] [address] [place] [address] Dr. Shabnam Rae IG % 0.5 % Normal 0.0-0.5 [facility] Comment on above: Performed By: #### C BC #### [facility] [address] [place] [address] Dr. Shabnam Rae LYMPH # 1.0 103/ul Critically low 1.2-3.8 [facility] Comment on above: Performed By: #### C BC #### [facility] [address] [place] [address] Dr. Shabnam Rae Lymphocytes/100 WBC (Bld) 16.4 % Critically low 20.5-60.0 [facility] Comment on above: Performed By: #### C BC #### [facility] [address] [place] [address] Dr. Shabnam Rae MANUAL DIFF REQ NO Normal [facility] Comment on above: Performed By: #### C BC #### [facility] [address] [place] [address] Dr. Shabnam Rae MCH (RBC) [Entitic mass] 29.5 pg Normal 25.9-34.0 [facility] Comment on above: Performed By: #### C BC #### [facility] [address] [place] [address] Dr. Shabnam Rae MCHC (RBC) [Mass/Vol] 33.3 g/dL Normal 29.9-35.2 [facility] Comment on above: Performed By: #### C BC #### [facility] [address] [place] [address] Dr. Shabnam Rae MCV (RBC) [Entitic vol] 88.8 fL Normal 80.0-94.0 [facility] Comment on above: Performed By: #### C BC #### [facility] [address] [place] [address] Dr. Shabnam Rae MONO # 0.6 103/ul Normal 0.3-0.8 [facility] Comment on above: Performed By: #### C BC #### [facility] [address] [place] [address] Dr. Shabnam Rae Monocytes/100 WBC (Bld) 9.6 % Normal 1.7-12.0 [facility] Comment on above: Performed By: #### C BC #### [facility] [address] [place] [address] Dr. Shabnam Rae NEUT # 4.4 103/ul Normal 1.4-6.5 [facility] Comment on above: Performed By: #### C BC #### [facility] [address] [place] [address] Dr. Shabnam Rae Neutrophils/100 WBC (Bld) 71.2 % Normal 43.0-75.0 [facility] Comment on above: Performed By: #### C BC #### [facility] [address] [place] [address] Dr. Shabnam Rae Platelet mean volume (Bld) [Entitic vol] 10.8 fL Normal 9.5-13.5 [facility] Comment on above: Performed By: #### C BC #### [facility] [address] [place] [address] Dr. Shabnam Rae PLT 158 103/ul Normal 150-450 [facility] Comment on above: Performed By: #### C BC #### [facility] [address] [place], [place] [id number] Dr. Shabnam Rae RBC 4.54 106/ul Critically low 4.70-6.10 [facility] Comment on above: Performed By: #### C BC #### [facility] [address] [place] [address] Dr. Shabnam Rae WBC 6.2 103/ul Normal 4.0-11.0 [facility] Comment on above: Performed By: #### C #### [facility] [address] [address] [address] ABD/PELV W CONon [...] MAYRA BERNAL Date: 2022-01-04 05:19 Normal [facility] CT PELVIS WO CONon 2 [...] MANUEL HOUGH Date: 2022-01-04 08:54 Normal [facility] CULTURE URINEon 01-04-2022 CULTURE URINE Culture Observations: No growth Normal [facility] Comment on above: Performed By: #### P [facility] #### [facility] [address] [place] [address] Dr. Shabnam Rae Covid-19 PCR ([facility])on 12-13 SARS-CoV-2 (COVID-19) RNA ELIJAH+probe Ql (Unsp spec) Not detected Normal NOT DETECTED [facility] Comment on above: [...] Administration (FDA). This test was developed by [employer] [place], [place]. The performance characteristics of this test were validated by [facility]. The results are not intended to be used as the sole means for clinical diagnosis or patient management decisions. [facility] is authorized under Clinical Laboratory [...] for this test is supported by the Feather Washer of Health and Human Service's declaration that [...] used). Performed By: #### C VDTBH #### [facility] [address] [place] [address] Dr. Shabnam Rae ER URINE PROFILEon 2 Bilirubin Ql (U) Negative Normal NEGATIVE [facility] Comment on above: Performed By: #### P SASC #### [facility] [address] [place] [address] Dr. Shabnam Rae Clarity (U) CLEAR Normal CLEAR [facility] Comment on above: Performed By: #### P SASC #### [facility] [address] [place] [address] Dr. Shabnam Rae Color (U) YELLOW Normal YELLOW [facility] Comment on above: Performed By: #### P SASC #### [facility] [address] [place] [address] Dr. Shabnam Rae ERUAHD A micrscopic examination will be performed if indicated. Normal [facility] Comment on above: Performed By: #### P SASC #### [facility] [address] [address] [address] Shabnam Rae Glucose Ql (U) Negative Normal NEGATIVE [place] Comment on above: Performed By: #### P SASC #### [facility] [address] [address] [address] Shabnam Rae Hemoglobin Ql (U) Negative Normal NEGATIVE [facility] Comment on above: Performed By: #### P SASC #### [facility] [address] [address] [address] Shabnam Rae Ketones Ql (U) Negative Normal NEGATIVE [place] Comment on above: Performed By: #### P SASC #### [facility] [address] [address] [address] Shabnam Rae LEUKOCYTES Negative Normal NEGATIVE [facility] Comment on above: Performed By: #### P SASC #### [facility] [address] [address] [address] Shabnam Rae Nitrite Ql (U) Negative Normal NEGATIVE [place] Comment on above: Performed By: #### P SASC #### [facility] [address] [address] [address] Shabnam Rae pH (U) 6.5 [pH] Normal 5-9 [facility] Comment on above: Performed By: #### P SASC #### [facility] [address] [place] [address] Dr. Shabnam Rae SPEC GRAVITY 1.010 Normal 1.005-<=1.025 [facility] Comment on above: Performed By: #### P SASC #### [facility] [address] [place] [address] Dr. Shabnam Rae UA PROTEIN Negative Normal NEGATIVE/ TRACE [facility] Comment on above: Performed By: #### P SASC #### [facility] [address] [place] [address] Dr. Shabnam Rae UR MICRO IND NOT INDICATED Normal [facility] Comment on above: Performed By: #### P SASC #### [facility] [address] [place] [address] Dr. Shabnam Rae Urobilinogen Qn (U) 0.2 {Sarai'U}/dL Normal 0.2 - 1. 0 [facility] Comment on above: Performed By: #### P SASC #### [facility] [address] [address] [address] Shabnam Rae LACTATE/LACTIC ACIDon 2021 Lactate [Moles/Vol] 1.0 mmol/L Normal 0.4-2.0 [facility] Comment on above: Performed By: #### P SASC #### [facility] [address] [address] [address] Shabnam Rae PROF CHEM 8 (BAS METB)on Anion gap [Moles/Vol] 10.0 mmol/L Normal [facility] Comment on above: Performed By: #### B MP #### [facility] [address] [place] [address] Dr. Shabnam Rae Calcium [Mass/Vol] 8.5 mg/dL Normal 8.5-10.1 [facility] Comment on above: Performed By: #### B MP #### [facility] [address] [address] [address] Shabnam Rae Chloride [Moles/Vol] 103 mmol/L Normal 98-107 [facility] Comment on above: Performed By: #### B MP #### [facility] [address] [place] [address] Dr. Shabnam Rae CO2 [Moles/Vol] 29.2 mmol/L Normal 21.0-32.0 [facility] Comment on above: Performed By: #### B MP #### [facility] [address] [place] [address] Dr. Shabnam Rae Creatinine [Mass/Vol] 1.25 mg/dL Normal 0.70-1.30 [facility] Comment on above: Performed By: #### B MP #### [facility] [address] [address] [address] Shabnam Rae EGFR-AF [place] >60 Normal >=60 [facility] Comment on above: Performed By: #### B MP #### [facility] [address] [address] [address] Shabnam Rae EGFR-NON AF [place] >60 Normal >=60 [facility] Comment on above: Performed By: #### B MP #### [facility] [address] [address] [address] Shabnam Rae Glucose [Mass/Vol] 132 mg/dL Critically high 74-106 [facility] Comment on above: Performed By: #### B MP #### [facility] [address] [address] [address] Shabnam Rae Potassium [Moles/Vol] 3.2 mmol/L Critically low 3.5-5.1 [facility] Comment on above: Performed By: #### B MP #### [facility] [address] [place] [address] Dr. Shabnam Rae Sodium [Moles/Vol] 139 mmol/L Normal 136-145 [facility] Comment on above: Performed By: #### B MP #### [facility] [address] [address] [address] Shabnam Rae Urea nitrogen [Mass/Vol] 19.0 mg/dL Critically high 7.0-18.0 [facility] Comment on above: Performed By: #### B MP #### [facility] [address] [place] [address] Dr. Shabnam Rae Urea nitrogen/Creatinine [Mass ratio] 15.2 mg/mg Normal [facility] Comment on above: Performed By: #### B MP #### [facility] [address] [place] [address] Dr. Shabnam Rae CERVICAL SPINE 2 OR 3 [facility] 07-06-2019 CERVICAL SPINE 2 OR 3 [facility] Department of Radiology [address] [place] [id number] Patient Name: MATTY GARCES : 1970 [...] findings. Electronically signed by:Bernice Hoyt. Transcribed by: [email or web address], User Resident: RADHA CHIN Electronically Signed by: BERNICE HOYT @ 07/06/2019 08:52 PM I personally read this/these film(s) with this resident Normal [facility] Comment on above: Order Comment: , STA T READ , STAT READ , , , Ordering Provider - LUCIANO VIEIRA MD , CERVICAL SPINE 2 OR 3 [facility] 04-06-2019 CERVICAL SPINE 2 OR 3 [facility] Department of Radiology [address] [place] [phone] Patient Name: MATTY GARCES : 1970 [...] FALLS Exam: CERVICAL SPINE 2 OR 3 [facility] CERVICAL SPINE 2 OR 3 [facility] 04/06/2019 7:28 AM EDT SIGNS AND SYMPTOMS: [...] study. Electronically signed by:Bernice Hoyt. Transcribed by: [email or web address], User Resident: Electronically Signed by: BERNICE HOYT @ 04/06/2019 04:40 PM Normal [facility] Comment on above: Order Comment: AP/LA T, ODONTOID PLEASE DO SWIMMER'S VIEW FOLLOW UP HARDWARE AND ALIGNMENT, S/P ACDF, RECENT FALLS CERVICAL SPINE 2 OR 3 [facility] 02-17-2019 CERVICAL SPINE 2 OR 3 [facility] Department of Radiology [address] [place] [id number] Patient Name: MATTY GARCES : 1970 [...] findings. Electronically signed by:Bella King. Transcribed by: [email or web address], User Resident: EMILE TINAJERO Electronically Signed by: BELLA KING @ 02/20/2019 11:53 AM I personally read this/these film(s) with this resident Normal [facility] Comment on above: Order Comment: C-SPI NE 2 OR 3 VIEW POSTOP, EVALUATION HARDWARE AN ALIGNMENT BASIC METABOLIC PANELon 05-2 Calcium [Mass/Vol] 9.2 mg/dL Normal 8.6-10.3 [facility] Comment on above: Order Comment: No: D o not add to previous draw Performed By: #### 5 0103 #### [facility] [address] [place] [address], [place] Chloride [Moles/Vol] 101 mmol/L Normal 98-107 [facility] Comment on above: Order Comment: No: D o not add to previous draw Performed By: #### 5 0103 #### [facility] [address] [place] [address], [place] CO2 [Moles/Vol] 26 mmol/L Normal 21-31 [facility] Comment on above: Order Comment: No: D o not add to previous draw Performed By: #### 5 0103 #### [facility] [address] [place] [address], [place] Creatinine [Mass/Vol] 1.02 mg/dL Normal 0.70-1.30 [facility] Comment on above: Order Comment: No: D o not add to previous draw Performed By: #### 5 0103 #### [facility] [address] [place] [address], [place] GFR/1.73 sq M predicted among blacks MDRD (S/P/Bld) [Vol rate/Area] mL/min/{1.73_m2} Normal >60 [facility] Comment on above: Order Comment: No: D o not add to previous draw Performed By: #### 5 0103 #### [facility] [address] [place] [address], [place] GFR/1.73 sq M predicted among non-blacks MDRD (S/P/Bld) [Vol rate/Area] mL/min/{1.73_m2} Normal >60 [facility] Comment on above: Order Comment: No: D o not add to previous draw Performed By: #### 5 0103 #### [facility] [address] [place] [address], [place] Glucose [Mass/Vol] 124 mg/dL High 70-100 [facility] Comment on above: Order Comment: No: D o not add to previous draw Performed By: #### 5 0103 #### [facility] [address] [place] [address], [place] Potassium [Moles/Vol] 3.9 mmol/L Normal 3.5-5.1 [facility] Comment on above: Order Comment: No: D o not add to previous draw Performed By: #### 5 0103 #### [facility] [address] [place] [address], [place] Sodium [Moles/Vol] 137 mmol/L Normal 136-145 [facility] Comment on above: Order Comment: No: D o not add to previous draw Performed By: #### 5 0103 #### [facility] [address] [place] [address], [facility] Urea nitrogen [Mass/Vol] 15 mg/dL Normal 7-25 [facility] Comment on above: Order Comment: No: D o not add to previous draw Performed By: #### 5 3 #### [facility] [address] [place] [address], [facility] CBC COMPLETE BLOOD COUNTon 0 - Erythrocyte distribution width (RBC) [Ratio] 13.9 % Normal 11.5-15.0 [facility] Comment on above: Order Comment: No: D o not add to previous draw Performed By: #### 5 0103 #### [facility] [address] [place] [address], [facility] Hematocrit (Bld) [Volume fraction] 50.0 % Normal 39.0-50.0 [facility] Comment on above: Order Comment: No: D o not add to previous draw Performed By: #### 5 3 #### [facility] [address] [place] [id number], [facility] Hemoglobin (Bld) [Mass/Vol] 16.0 g/dL Normal 13.0-17.0 [facility] Comment on above: Order Comment: No: D o not add to previous draw Performed By: #### 5 0103 #### [facility] [address] [place] [id number], [facility] MCH (RBC) [Entitic mass] 27.5 pg Normal 27.0-33.0 [facility] Comment on above: Order Comment: No: D o not add to previous draw Performed By: #### 5 0103 #### [facility] [address] [place] [address], [facility] MCHC (RBC) [Mass/Vol] 32.0 g/dL Normal 32.0-35.0 [facility] Comment on above: Order Comment: No: D o not add to previous draw Performed By: #### 5 0103 #### [facility] [address] [place] [address], [facility] MCV (RBC) [Entitic vol] 85.9 fL Normal 82.0-98.0 [facility] Comment on above: Order Comment: No: D o not add to previous draw Performed By: #### 5 0103 #### [facility] [address] [place] [address], [facility] Nucleated RBC/100 WBC (Bld) [Ratio] 0 % Normal 0-0 [facility] Comment on above: Order Comment: No: D o not add to previous draw Performed By: #### 5 0103 #### [facility] [address] [facility] [place] [place] [address], [facility] PLAT CNT 249 10*3/uL Normal 150-400 [facility] Comment on above: Order Comment: No: D o not add to previous draw Performed By: #### 5 3 #### [facility] [address] [place] [address], [facility] RBC (Bld) [#/Vol] 5.82 10*6/uL High 4.20-5.70 [facility] Comment on above: Order Comment: No: D o not add to previous draw Performed By: #### 5 0103 #### [facility] [address] [place] [address], [facility] WBC (Bld) [#/Vol] 15.85 10*3/uL High 4.00-10.60 [facility] Comment on above: Order Comment: No: D o not add to previous draw Performed By: #### 5 0103 #### [facility] [address] Operative Reporton 9 Operative Report MR#: [id number] [facility] Pt. Name: Matty Garces Room #: [id number] Discharge Date: Birthdate: 1970 OPERATIVE REPORT DATE OF SURGERY: 01/30/2019 SURGEON: Luciano Vieira M.D. 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 POSTOPERATIVE DIAGNOSIS: Failed instrumentation at C6-7 on the right. LOSS CONTROL ENGINEER: ADENIKE Lugo. ANESTHESIA: Endotracheal, Hogan. PROCEDURES: Redo [...] Vieira M.D. Date Trans: 01/31/2019 02:31 Eze/sasha [id number] cc: Venus Mendez M.D. [address] [facility] [address] Normal [facility] CERVICAL SPINE 2 OR 3 [facility] 01-30-2019 CERVICAL SPINE 2 OR 3 [facility] Department of Radiology [address] [place] [phone] Patient Name: MATTY GARCES : 1970 [...] documentation Electronically signed by:Justus Montano. Transcribed by: [email or web address], User Resident: Electronically Signed by: JUSTUS MONTANO @ 01/30/2019 04:18 PM Normal [facility] Comment on above: Order Comment: C6-7 ACDF POC GLUCOSE LABon 01-30-2019 Glucose [Mass/Vol] 106 mg/dL High 70-100 [facility] Comment on above: Performed By: #### 5 0103 #### [facility] [address] [facility]. [address] *MRSA/MSSA DNA NASALon 01-23 *MRSA/MSSA DNA NASAL Clinical Report: (D ) Specimen: NASAL SWAB Collected: 01/23/2019 15:02 Status: Final Last Updated: 01/23/2019 20:14 MSSA DNA (Final) Methicillin Susceptible Staphylococcus aureus DNA Detected MRSA DNA (Final) No Methicillin Resistant Staphylococcus aureus DNA Detected Normal [facility] Comment on above: Performed By: #### 5 0103 #### [facility] [address] [facility]. [address] APTTon 01-23-2019 aPTT Coag (Bld) [Time] 35.4 s High 25.0-35.0 [facility] Comment on above: Result Comment: [...] THIS PURPOSE. Performed By: #### 5 7307, 05147 #### [facility] [address] [facility]. [address] BASIC METABOLIC PANELon 01-11 Calcium [Mass/Vol] 9.5 mg/dL Normal 8.6-10.3 [facility] Comment on above: Performed By: #### 5 7307, 28403 #### [facility] [address] [facility] [place] [place] [address], [facility] Chloride [Moles/Vol] 101 mmol/L Normal 98-107 [facility] Comment on above: Performed By: #### 5 7307, 87679 #### [facility] [address] [place] [address], [facility] CO2 [Moles/Vol] 29 mmol/L Normal 21-31 [facility] Comment on above: Performed By: #### 5 73, 61480 #### [facility] [address] [place] [address], [place] Creatinine [Mass/Vol] 1.08 mg/dL Normal 0.70-1.30 [facility] Comment on above: Performed By: #### 5 73, 72451 #### [facility] [address] [place] [address], [place] GFR/1.73 sq M predicted among blacks MDRD (S/P/Bld) [Vol rate/Area] mL/min/{1.73_m2} Normal >60 [facility] Comment on above: Performed By: #### 5 7306, 97906 #### [facility] [address] [place] [address], [place] GFR/1.73 sq M predicted among non-blacks MDRD (S/P/Bld) [Vol rate/Area] mL/min/{1.73_m2} Normal >60 [facility] Comment on above: Performed By: #### 5 7306, 57819 #### [facility] [address] [place] [address], [place] Glucose [Mass/Vol] 87 mg/dL Normal 70-100 [facility] Comment on above: Performed By: #### 5 73, 86980 #### [facility] [address] [place] [address], [place] Potassium [Moles/Vol] 4.0 mmol/L Normal 3.5-5.1 [facility] Comment on above: Performed By: #### 5 7307, 45563 #### [facility] [address] [place] [address], [place] Sodium [Moles/Vol] 137 mmol/L Normal 136-145 [facility] Comment on above: Performed By: #### 5 7307, 23116 #### [facility] [address] Urea nitrogen [Mass/Vol] 12 mg/dL Normal 7-25 [facility] Comment on above: Performed By: #### 5 73, 43404 #### [facility] [address] CBC W/DIFFon 01-23-2019 ABS BASOPHILS 0.1 10*3/uL Normal 0.0-0.[address] [facility] Comment on above: Performed By: #### 5 Al, 10893 #### [facility] [address] ABS IMM GRANS 0.0 10*3/uL Normal 0.0-0.[address] [facility] Comment on above: Performed By: #### 5 Al, 47123 #### [facility] [address] ABS NEUTROPHILS 5.3 10*3/uL Normal 1.6-7.6 [facility] Comment on above: Performed By: #### 5 Al, 71443 #### [facility] [address] Basophils/100 WBC (Bld) 0.9 % Normal 0.0-1.0 [facility] Comment on above: Performed By: #### 5 Al, 60757 #### [facility] [address] Eosinophils (Bld) [#/Vol] 0.2 10*3/uL Normal 0.0-0.5 [facility] Comment on above: Performed By: #### 5 7306, 32601 #### [facility] [address] [place] [address], [facility] Eosinophils/100 WBC (Bld) 2.3 % Normal 0.0-6.0 [facility] Comment on above: Performed By: #### 5 7306, 97222 #### [facility] [address] Erythrocyte distribution width (RBC) [Ratio] 13.8 % Normal 11.5-15.0 [facility] Comment on above: Performed By: #### 5 7306, 64699 #### [facility] [address] [place] [address], [facility] Hematocrit (Bld) [Volume fraction] 49.6 % Normal 39.0-50.0 [facility] Comment on above: Performed By: #### 5 7306, 60565 #### [facility] [address] [facility] [place] [address], [facility] Hemoglobin (Bld) [Mass/Vol] 16.4 g/dL Normal 13.0-17.0 [facility] Comment on above: Performed By: #### 5 7306, 57612 #### [facility] [address] [place] [address], [facility] IMMATURE GRANS 0.5 % Normal 0.0-1.[address] [facility] Comment on above: Performed By: #### 5 7306, 85943 #### [facility] [address] [place] [address], [facility] Lymphocytes (Bld) [#/Vol] 1.2 10*3/uL Normal 1.2-4.0 [facility] Comment on above: Performed By: #### 5 7306, 40365 #### [facility] [address] [place] [address], [facility] Lymphocytes/100 WBC (Bld) 16.6 % Low 20.0-45.0 [facility] Comment on above: Performed By: #### 5 7306, 56097 #### [facility] [address] [place] [address], [facility] MCH (RBC) [Entitic mass] 27.8 pg Normal 27.0-33.0 [facility] Comment on above: Performed By: #### 5 7306, 42755 #### [facility] [address] [place] [address], [facility] MCHC (RBC) [Mass/Vol] 33.1 g/dL Normal 32.0-35.0 [facility] Comment on above: Performed By: #### 5 7306, 30607 #### [facility] [address] [place] [address], [facility] MCV (RBC) [Entitic vol] 84.2 fL Normal 82.0-98.0 [facility] Comment on above: Performed By: #### 5 7306, 14331 #### [facility] [address] [place] [address], [facility] Monocytes (Bld) [#/Vol] 0.7 10*3/uL Normal 0.1-1.0 [facility] Comment on above: Performed By: #### 5 7306, 81172 #### [facility] [address] [place] [address], [facility] MONOS 9.4 % Normal 5.0-12.0 [facility] Comment on above: Performed By: #### 5 7306, 18545 #### [facility] [address] [place] [address], [facility] Neutrophils/100 WBC (Bld) 70.3 % Normal 40.0-72.0 [facility] Comment on above: Performed By: #### 5 7306, 59183 #### [facility] [address] [facility] [place] [place] [address], [facility] Nucleated RBC/100 WBC (Bld) [Ratio] 0 % Normal 0-0 [facility] Comment on above: Performed By: #### 5 7306, 18225 #### [facility] [address] [place] [address], [place] PLAT CNT 235 10*3/uL Normal 150-400 [facility] Comment on above: Performed By: #### 5 7307, 47897 #### [facility] [address] [facility]. [address] RBC (Bld) [#/Vol] 5.89 10*6/uL High 4.20-5.70 [facility] Comment on above: Performed By: #### 5 7307, 46315 #### [facility] [address] [facility] [facility] WBC (Bld) [#/Vol] 7.48 10*3/uL Normal 4.00-10.60 [facility] Comment on above: Performed By: #### 5 7307, 45867 #### [facility] [address] [facility]. [address] PROTHROMBIN TIMEon 9 INR Coag (PPP) [Relative time] 1.12 {INR} Normal 0.91-1.16 [facility] Comment on above: Result Comment: ACCC [...] CHEST 1995;108:231S-246S. Performed By: #### 5 7307, 34595 #### [facility] [address] [facility]. [address] PT Coag (PPP) [Time] 14.4 s Normal 12.3-14.8 [facility] Comment on above: Result Comment: ALL RESULTS MUST BE INTERPRETED WITH RESPECT TO BLOOD DRAWING ARTIFACT OR DILUTION ERROR OF ANTICOAGULANT AT THE TIME OF SAMPLING. Performed By: #### 5 7307, 25638 #### [facility] [address] [facility]. [address] TYPE AND SCREENon 01-23-2019 ABO INTERPRETATION A Normal [facility] Comment on above: Performed By: #### 5 7307, 47425 #### [facility] [address] [facility] [place] [address], [facility] RH INTERPRETATION Positive Normal [facility] Comment on above: Performed By: #### 5 7307, 88884 #### [facility] [address] [facility]. [address] 3D CERVICAL SPINE WO CONT RASTon 01-12-2019 CT 3D CERVICAL SPINE WO CONTRAST [facility] Department of Radiology [address] [place] [id number] Patient Name: MATTY GARCES : 1970 Sex: M Age: Race: White Pt. Location: Patient Status: D Ordered Date: 01/10/2019 2:15:00 PM Completed Date: 01/12/2019 10:32 AM Requesting Provider: LUCIANO VIEIRA Attending Provider: LUCIANO VIEIRA Report Copy To: VENUS MENDEZ Signs & Symptoms: M48.02 Spinal stenosis, cervical region I10 History: [place] para auth # [id number] 01/10/19-02/09/19 [id number] *er Comments: Exam: CT 3D CERVICAL SPINE [...] incomplete Electronically signed by:Ten Garland. Transcribed by: [email or web address], User Resident: Electronically Signed by: TEN GARLAND @ 01/13/2019 09:18 AM Normal [facility] CERVICAL SPINE 2 OR 3 [facility] 01-05-2019 CERVICAL SPINE 2 OR 3 S [facility] Department of Radiology [address] [place] [phone] Patient Name: MATTY GARCES : 1970 [...] , Exam: CERVICAL SPINE 2 OR 3 [facility] CERVICAL SPINE 2 OR 3 [facility] 01/05/2019 9:06 AM EDT SIGNS AND SYMPTOMS: [...] findings. Electronically signed by:Ten Garland. Transcribed by: [email or web address], User Resident: SHELLY DELA CRUZ Electronically Signed by: TEN GARLAND @ 01/05/2019 12:37 PM I personally read this/these film(s) with this resident Normal [facility] Comment on above: Order Comment: , , = ========= , Ordering Provider - LUCIANO VIEIRA MD , CERVICAL SPINE 2 OR 3 [facility] 08-30-2018 CERVICAL SPINE 2 OR 3 [facility] Department of Radiology [address] [place] [phone] Patient Name: MATTY GARCES : 1970 Sex: M Age: Race: White Pt. Location: Patient Status: O Ordered Date: 08/30/2018 9:35:00 AM Completed Date: 08/30/2018 09:43 AM Requesting Provider: LUCIANO VIEIRA Attending Provider: LUCIANO VIEIRA Report Copy To: VENUS MENDEZ Signs & Symptoms: M50.90 Cervical disc disorder, unsp, unspecified cervical region I10 History: [place] Comments: , POST OP XRAY AP/LAT ONLY [...] findings. Electronically signed by:Bella King. Transcribed by: [email or web address], User Resident: RYAN HEAD Electronically Signed by: BELLA KING @ 08/30/2018 05:45 PM I personally read this/these film(s) with this resident Normal [facility] Comment on above: Order Comment: , POS T OP XRAY AP/LAT ONLY , POST OP XRAY AP/LAT ONLY , , , Ordering Provider - LUCIANO VIEIRA MD , Operative Reporton 8 Operative Report MR#: [id number] I [facility] Pt. Name: Matty Garces Room #: [id number] Discharge Date: Birthdate: 1970 OPERATIVE REPORT DATE OF SURGERY: 08/17/2018 SURGEON: Luciano Vieira M.D. PREOPERATIVE DIAGNOSIS: Herniated cervical disk at C6-7. POSTOPERATIVE DIAGNOSIS: Herniated cervical disk at C6-7. LOSS CONTROL ENGINEER: ADENIKE Larios. ANESTHESIA: Endotracheal, Braida. PROCEDURE: Anterior [...] Vieira M.D. Date Trans: 08/17/2018 11:25 P/sasha [id number] cc: Venus Mendez M.D. [address], [facility] [address] Normal [facility] CERVICAL SPINE 2 OR 3 [facility] 08-17-2018 CERVICAL SPINE 2 OR 3 [facility] Department of Radiology [address] [place] [phone] Patient Name: MATTY GARCES : 1970 [...] findings. Electronically signed by:Bernice Hoyt. Transcribed by: [email or web address], User Resident: EMILE TINAJERO Electronically Signed by: BERNICE HOYT @ 08/18/2018 01:06 PM I personally read this/these film(s) with this resident Normal [facility] Comment on above: Order Comment: C6-7 ACDF with POC GLUCOSE LABon 08-17-2018 Glucose [Mass/Vol] 113 mg/dL High 70-100 [facility] Comment on above: Performed By: #### 8 5499 #### [facility] [address] [place] [address], [facility] RBC'S 2 UNITSon 08-17-2018 CROSSMATCH INTERP 1 COMP Normal [facility] Comment on above: Performed By: #### 8 6002 #### [facility] [address] [place] [address], [facility] CROSSMATCH INTERP 2 COMP Normal [facility] Comment on above: Performed By: #### 8 6002 #### [facility] [address] [place] [address], [facility] PRODUCT CODE 1 E0336 Normal [facility] Comment on above: Performed By: #### 8 6002 #### [facility] [address] [place] [address], [facility] PRODUCT CODE 2 E0336 Normal [facility] Comment on above: Performed By: #### 8 6002 #### [facility] [address] [place] [address], [facility] PRODUCT STATUS 1 RE Normal [facility] Comment on above: Result Comment: Resu lt changed by IF on 08/20/2018 07:48. The previous value was XM. Performed By: #### 8 6002 #### [facility] [address] [place] [address], [facility] PRODUCT STATUS 2 RE Normal [facility] Comment on above: Result Comment: Resu lt changed by IF on 08/20/2018 07:48. The previous value was XM. Performed By: #### 8 6002 #### [facility] [address] UNIT ABO 1 A Normal [facility] Comment on above: Performed By: #### 8 6002 #### [facility] [address] [facility]. [address] UNIT ABO 2 A Normal [facility] Comment on above: Performed By: #### 8 6002 #### [facility] [address] UNIT ID 1 [id number] Normal [facility] Comment on above: Performed By: #### 8 6002 #### [facility] [address] [facility]. [address] UNIT ID 2 [id number] Normal [facility] Comment on above: Performed By: #### 8 6002 #### [facility] [address] [facility]. [address] UNIT RH 1 Positive Normal [facility] Comment on above: Performed By: #### 8 6002 #### [facility] [address] [facility]. [address] UNIT RH 2 Positive Normal [facility] Comment on above: Performed By: #### 8 6002 #### [facility] [address] *MRSA/MSSA CULTUREon 018 *MRSA/MSSA CULTURE Clinical Report: (D) Specimen: NASAL SWAB Collected: 08/02/2018 12:37 Status: Final Last Updated: 08/03/2018 14:26 ISO (Final) No Methicillin Resistant Staphylococcus aureus Isolated (MRSA) ISO (Final) Methicillin Sensitive Staphylococcus aureus (MSSA) Isolated Normal [facility] Comment on above: Performed By: #### 3 1302 #### [facility] [address] APTTon 08-02-2018 aPTT Coag (Bld) [Time] 31.2 s Normal 25.0-35.0 [facility] Comment on above: Result Comment: ALL [...] THIS PURPOSE. Performed By: #### 5 7307, 02383 #### [facility] [address] [place] [address], [facility] BASIC METABOLIC PANELon 11-2 Calcium [Mass/Vol] 9.4 mg/dL Normal 8.6-10.3 [facility] Comment on above: Performed By: #### 0 0071 #### [facility] [address] [place] [address], [facility] Chloride [Moles/Vol] 103 mmol/L Normal 98-107 [facility] Comment on above: Performed By: #### 0 0071 #### [facility] [address] [place] [address], [facility] CO2 [Moles/Vol] 29 mmol/L Normal 21-31 [facility] Comment on above: Performed By: #### 0 0071 #### [facility] [address] [place] [address], [facility] Creatinine [Mass/Vol] 1.06 mg/dL Normal 0.70-1.30 [facility] Comment on above: Performed By: #### 0 0071 #### [facility] [address] [place] [address], [facility] GFR/1.73 sq M predicted among blacks MDRD (S/P/Bld) [Vol rate/Area] mL/min/{1.73_m2} Normal >60 [facility] Comment on above: Performed By: #### 0 0071 #### [facility] [address] [place] [address], [facility] GFR/1.73 sq M predicted among non-blacks MDRD (S/P/Bld) [Vol rate/Area] mL/min/{1.73_m2} Normal >60 [facility] Comment on above: Performed By: #### 0 0071 #### [facility] [address] [place] [address], [facility] Glucose [Mass/Vol] 84 mg/dL Normal 70-100 [facility] Comment on above: Performed By: #### 0 0071 #### [facility] [address] [place] [address], [facility] Potassium [Moles/Vol] 4.0 mmol/L Normal 3.5-5.1 [facility] Comment on above: Performed By: #### 0 0071 #### [facility] [address] Sodium [Moles/Vol] 140 mmol/L Normal 136-145 The [facility] Comment on above: Performed By: #### 0 0071 #### [facility] [address] Urea nitrogen [Mass/Vol] 20 mg/dL Normal 7-25 [facility] Comment on above: Performed By: #### 0 0071 #### [facility] [address] CBC W/DIFFon 08-02-2018 ABS BASOPHILS 0.1 10*3/uL Normal 0.0-0.[address] [facility] Comment on above: Performed By: #### 5 3 #### [facility] [address] [place] [address], [facility] ABS IMM GRANS 0.1 10*3/uL Normal 0.0-0.[address] [facility] Comment on above: Performed By: #### 5 3 #### [facility] [address] [place] [address], [facility] ABS NEUTROPHILS 4.2 10*3/uL Normal 1.6-7.6 [facility] Comment on above: Performed By: #### 5 102 #### [facility] [address] [place] [address], [facility] Basophils/100 WBC (Bld) 1.3 % High 0.0-1.0 [facility] Comment on above: Performed By: #### 102 #### [facility] 3000 [facility] [place] [place] [address], [facility] Eosinophils (Bld) [#/Vol] 0.1 10*3/uL Normal 0.0-0.5 [facility] Comment on above: Performed By: #### 102 #### [facility] [address] [place] [address], [facility] Eosinophils/100 WBC (Bld) 2.0 % Normal 0.0-6.0 [facility] Comment on above: Performed By: #### 102 #### [facility] [address] Erythrocyte distribution width (RBC) [Ratio] 13.6 % Normal 11.5-15.0 [facility] Comment on above: Performed By: #### 3 #### [facility] [address] [facility]. [address] Hematocrit (Bld) [Volume fraction] 44.3 % Normal 39.0-50.0 [facility] Comment on above: Performed By: #### 102 #### [facility] [address] [facility] [place] [place] [address], [facility] Hemoglobin (Bld) [Mass/Vol] 15.1 g/dL Normal 13.0-17.0 [facility] Comment on above: Performed By: #### 5 0103 #### [facility] [address] IMMATURE GRANS 1.1 % High 0.0-1.[address] [facility] Comment on above: Performed By: #### 5 102 #### [facility] [address] [place] [address], [facility] Lymphocytes (Bld) [#/Vol] 1.2 10*3/uL Normal 1.2-4.0 [facility] Comment on above: Performed By: #### 102 #### [facility] [address] [place] [address], [facility] Lymphocytes/100 WBC (Bld) 18.3 % Low 20.0-45.0 [facility] Comment on above: Performed By: #### 102 #### [facility] [address] MCH (RBC) [Entitic mass] 29.0 pg Normal 27.0-33.0 [facility] Comment on above: Performed By: #### 5 102 #### [facility] [address] MCHC (RBC) [Mass/Vol] 34.1 g/dL Normal 32.0-35.0 [facility] Comment on above: Performed By: #### 5 3 #### [facility] [address] MCV (RBC) [Entitic vol] 85.0 fL Normal 82.0-98.0 [facility] Comment on above: Performed By: #### 5 3 #### [facility] [address] [place] [address], [facility] Monocytes (Bld) [#/Vol] 0.7 10*3/uL Normal 0.1-1.0 [facility] Comment on above: Performed By: #### 5 0103 #### [facility] [address] [place] [address], [facility] MONOS 11.1 % Normal 5.0-12.0 [facility] Comment on above: Performed By: #### 5 0103 #### [facility] [address] [place] [address], [facility] Neutrophils/100 WBC (Bld) 66.2 % Normal 40.0-72.0 [facility] Comment on above: Performed By: #### 5 3 #### [facility] [address] [facility] [place] [place] [address], [facility] Nucleated RBC/100 WBC (Bld) [Ratio] 0 % Normal 0-0 [facility] Comment on above: Performed By: #### 5 102 #### [facility] [address] [facility] [place] [place] [address], [facility] PLAT CNT 179 10*3/uL Normal 150-400 The [facility] Comment on above: Performed By: #### 5 0103 #### [facility] [address] [facility] [place] [place] [address], [facility] RBC (Bld) [#/Vol] 5.21 10*6/uL Normal 4.20-5.70 The [facility] Comment on above: Performed By: #### 5 102 #### [facility] [address] [facility] [place] [place] [address], [facility] WBC (Bld) [#/Vol] 6.39 10*3/uL Normal 4.00-10.60 [facility] Comment on above: Performed By: #### 5 3 #### [facility] [address] [place] [address], [facility] CERVICAL SPINE 4 OR 5 VIEWSo n 08-02-2018 CERVICAL SPINE 4 OR 5 VIEWS [facility] Department of Radiology [address] [place] [id number] Patient Name: MATTY GARCES : 1970 Sex: [...] findings. Electronically signed by:Bella King. Transcribed by: [email or web address], User Resident: EMILE TINAJERO Electronically Signed by: BELLA KING @ 08/03/2018 11:58 AM I personally read this/these film(s) with this resident Normal [facility] Comment on above: Order Comment: , PRE OP XRAY AP/LAT \EANDE\ FLEX/EX , PREOP XRAY AP/LAT \EANDE\ FLEX/EX , , , Ordering Provider - LUCIANO VIEIRA MD , PROTHROMBIN TIMEon 8 INR Coag (PPP) [Relative time] 1.15 {INR} Normal 0.91-1.16 [facility] Comment on above: Result Comment: ACCC [...] CHEST 1995;108:[id number]. Performed By: #### 5 7307, [id number] #### [facility] [address] [place] [address], [place] PT Coag (PPP) [Time] 14.7 s Normal 12.3-14.8 [facility] Comment on above: Result Comment: ALL RESULTS MUST BE INTERPRETED WITH RESPECT TO BLOOD DRAWING ARTIFACT OR DILUTION ERROR OF ANTICOAGULANT AT THE TIME OF SAMPLING. Performed By: #### 5 7307, [id number] #### [facility] [address] [place] [address], [facility] TYPE AND SCREENon 08-02-2018 ABO INTERPRETATION A Normal [facility] Comment on above: Order Comment: 2 uni ts 2 units 2 units 2 units 2 units Performed By: #### 6 2586 #### [facility] [address] [place] [address], [place] RH INTERPRETATION Positive Normal The [facility] Comment on above: Order Comment: 2 uni ts 2 units 2 units 2 units 2 units Performed By: #### 6 2586 #### [facility] [address] [place] [address], [place] URINALYSIS REFLEXon 08-02-20 18 Appearance (U) CLEAR Normal CLEAR The [facility] Comment on above: Performed By: #### 3 0965 #### [facility] [address] [place] [address], [place] Bilirubin [Mass/Vol] Negative Normal NEGATIVE [facility] Comment on above: Performed By: #### 3 0965 #### [facility] [address] [place] [address], [place] BLOOD Negative Normal NEGATIVE [facility] Comment on above: Performed By: #### 3 0965 #### [facility] [address] [place] [address], [place] Color (U) YELLOW Normal YELLOW [facility] Comment on above: Performed By: #### 3 0965 #### [facility] [address] [place] [address], [place] Glucose [Mass/Vol] 150 mg/dL Abnormal NEGATIVE [facility] Comment on above: Performed By: #### 3 0965 #### [facility] [address] [place] [address], [facility] KETONE Negative Normal NEGATIVE [facility] Comment on above: Performed By: #### 3 0965 #### [facility] [address] [place] [address], [facility] [place] Negative Normal NEGATIVE [facility] Comment on above: Performed By: #### 3 0965 #### [facility] [address] [place] [address], [facility] MICRO NOT DONE negative chemical reactions unless requested in original order Normal [facility] Comment on above: Performed By: #### 3 0965 #### [facility] [address] [place] [address], [facility] Nitrite Ql (U) Negative Normal NEGATIVE The [facility] Comment on above: Performed By: #### 3 0965 #### [facility] [address] [place] [address], [facility] pH (Bld) 5.0 Normal 5.0-8.0 [facility] Comment on above: Performed By: #### 3 0965 #### [facility] [address] [place] [id number], [facility] Protein (U) [Mass/Vol] Negative Normal NEGATIVE [facility] Comment on above: Performed By: #### 3 0965 #### [facility] [address] [place] [address], [facility] SPEC GRAV 1.024 High 1.015-1.020 [facility] Comment on above: Performed By: #### 3 0965 #### [facility] [address] [place] [address], [facility] Vital Signs Date Time Vital Sign Value Performing Clinician Bijali litlamont 02-25-2022 10:30-0400 Blood Pressure Location Viola Lue [facility] [place] 02-25-2022 10:30-0400 Diastolic blood pressure 107 mm[Hg] [facility] 02-25-2022 10:30-0400 Heart rate 74 /min [facility] Lue [facility] 02-25-2022 10:30-0400 Respiratory rate 16 /min Viola Lue [facility] [place] 02-25-2022 10:30-0400 Systolic blood pressure 157 mm[Hg] Viola Lue [facility] [place] Encounters Encounter Date Encounter Type Care Provider Facility Start: 01-10-2024 End: 01-11-2024 ambulatory VALENCIA Pate APLING Not Available Start: 01-03-2024 End: 01-03-2024 ambulatory Trey Vallejo Facility:[place] Start: 01-03-2024 End: 01-03-2024 ambulatory DPM Trey Vallejo Work Phone: [facility] Work Phone: Start: 01-03-2024 End: 01-03-2024 Departed Referred DPM Trey Vallejo Work Phone: [facility] Start: 12-29-2023 End: 12-29-2023 ambulatory RUBÉN GEIGER Not Available Start: 11-29-2023 End: 11-30-2023 ambulatory Diallo Beauchamp MD Facility:[facility] Start: 10-18-2023 End: 10-19-2023 ambulatory Diallo Beauchamp MD Facility:[facility] Start: 09-27-2023 End: 09-27-2023 ambulatory RUBÉN GEIGER Not Available Start: 08-30-2023 End: 08-31-2023 ambulatory Diallo Beauchamp MD Facility:[facility] Start: 07-12-2023 End: 07-13-2023 ambulatory Diallo Beauchamp MD Facility:[facility] Start: 06-14-2023 End: 06-15-2023 ambulatory Kirkus Woo Beauchamp MD Facility:[facility] Start: 03-11-2023 End: 03-11-2023 ambulatory Ruébn Geiger Facility:[place] Start: 12-06-2022 End: 12-06-[address] VENUS MENDEZ . Facility:[facility] Start: 12-05-2022 Encounter for genera l adult medical examination without abnormal findings DR VENUS MENDEZ . [facility] Start: 12-01-2022 End: 12-02-[address] [...] encounter procedure Viola Grullon [facility] Start: 01-04-2022 End: 01-05-2022 ambulatory [...] Comment on above: Performed By: #### [facility] #### [facility] [address] [place] [address] Dr. Shabnam Rae Start: 01-30-2019 FUSION CERV JT W INT BD FUS DEV, ANT APPR A COL, OPEN [facility] Start: 01-30-2019 REMOVAL OF INT FIX F ROM CERVCAL VERTEBRA, OPEN APPROACH [facility] Start: 01-23-2019 Antibody screen PROVIDE R UNKNOWN Comment on above: Performed By: #### 5 7307, [id number] #### [facility] [address] Start: 08-17-2018 ANESTH SPINE CORD SURGERY [...] Performed By: #### 6 2586 #### [facility] [address] [facility]. [address] Colonoscopy Viola Lue Hemorrhoids (disorder) Viola Lue Hernia of abdominal cavity (disorder) Viola Lue Tonsillectomy [employer] Payers Date Payer Category Payer Self-pay [id number] 2022 Medicaid [id number] 2022 Unknown 1970 Unknown [id number] 2.16.8 40.1.720145.3.579.2.647 1970 Unknown [id number] 2.16.8 40.1.387176.3.579.2.647 1970 Unknown [id number] 2.16.84 0.1.724631.3.579.2.593 1970 Unknown [id number] 2.16.84 0.1.447620.3.579.2.593 1970 Unknown [id number] 2.16.84 0.1.954461.3.579.2.593 1970 Unknown [id number] 2.16.84 0.1.530081.3.579.2.593 1970 Unknown [id number] 2.16.84 0.1.103668.3.579.2.593 1970 Unknown [id number] 2.16.84 0.1.000481.3.579.2.593 1970 Unknown [id number] 2.16. 840.1.121829.3.579.2.196 1970 Unknown [id number] 2.16. 840.1.411285.3.579.2.196 1970 Unknown [id number] 2.16. 840.1.094717.3.579.2.196 1970 Unknown [id number] 2.16. 840.1.171972.3.579.2.196 1970 Unknown [id number] 2.16. 840.1.540671.3.579.2.196 1970 Unknown [id number] 2.16.84 0.1.821586.3.579.2.1259 1970 Unknown [id number] 2.16.84 0.1.651606.3.579.2.1259 1970 Unknown [id number] 2.16.84 0.1.956449.3.579.2.1259 1970 Unknown [id number] 2.16.84 0.1.121003.3.579.2.1259 1959 Unknown [id number] Unknown [id number] Unknown [id number] 2.16.8 40.1.076048.3.579.2.531 Unknown [id number] 2.16.8 40.1.352663.3.579.2.531 Social History Date Type Detail Facility Tobacco smoking status No Smokin g Status Entered [facility] Sex Assigned At Male [facility] Start: 05-15-2018 Tobacco smoking stat us NHIS Ex-smoker (finding) [place] Start: 1970 Sex Assigned At Male F [facility] Functional Status Date Assessment Result Facility 02-25-2022 Functional Status N/A [facility] Progress note 06-09-2023 Note Date & Type Note Facility 06-09-2023 Note [facility] Continue GDMT- Diuretic therapy Monitor daily weights, I&O, fluid restriction 1.5-2L/day, renal function and electrolytes- [facility] Clinical Note 03-26-2022 Note Date & [...] by: ALVINA CAICEDO Date: 2022-03-26 10:47 [facility] Discharge instructions 02-25-2022 Note Date & Type [...] Watch the hydrocele for any changes. Take bjrj-skc-aczroar and prescription medicines only as told by [...] 02/17/2011 Document Revised: 09/10/2018 Document Reviewed: 09/10/2018 [employer] Patient Education 2020 [employer]. Follow Up Care 01/28/2022 10:36:35 With:Mitchel DELGADO, Viola Cohn, URL, URO Address: When: Unknown [facility] Evaluation + Plan note Note Date & Type Note Facility Evaluation + Plan note No data available for this section [facility] Evaluation note Note Date & Type Note Facility Evaluation note [facility] Progress note Note Date & Type Note Facility Progress note No data available for this section [facility] Summary Purpose Family History No Family History Records FoundNo Family History Records FoundNo Family History Records FoundNo Family History Records FoundNo Family History Records FoundNo Family History Records FoundNo Family History Records Found Advance Directives No Advanced Directives Records Found Advance Directive Response Recorded Date/ Time Advance Directives No May 12:42pm Hospital Course Note MR#: [id number] I [facility] Pt. Name: Matty Garces Admitted: [...] and content) DATE CREATED AUTHOR 07/19/2019 [facility] DATE CREATED AUTHOR AUTHOR'S ORGANIZ ATION 02/27/2022 [facility] DATE CREATED AUTHOR AUTHOR'S ORGANIZ ATION 12/08/2022 [facility] DATE CREATED AUTHOR AUTHOR'S ORGANIZ ATION 06/17/2023 [facility] DATE CREATED AUTHOR AUTHOR'S ORGANIZ ATION 12/03/2023 [facility] DATE CREATED AUTHOR AUTHOR'S ORGANIZ ATION 01/08/2024 [facility] DATE CREATED AUTHOR AUTHOR'S ORGANIZ ATION 01/15/2024 [facility] Care Team (unrecognized sect ion and content) [...] BE BASED ON THE PRIMARY CLINICAL RECORDS. [employer] provides no warranty or guarantee of the accuracy or completeness of information in this document.
--- NOTE | 2024-03-14 07:34 | XR_ITS ---
The [address] [address] Patient Name: MATTY WADE MRN: [id number] date: 1970 Sex: M Assigned Patient Location: ER Current Patient Location: ER Accession/Order Number: [id number] Exam Date: 03/14/2024 07:45 Report Date: 03/14/2024 08:16 At the request of: SERA WAYNE Procedure: XR knee LT 3V PROCEDURE: XR knee LT 3V HISTORY: fall COMPARISON: None. FINDINGS: BONES:Chronic, prominent degenerative enthesophyte along the anterior margin of patella and evidence of prior Miranda-Schlatter syndrome along the proximal anterior margin of tibial tuberosity. SOFT TISSUES:Soft tissue thickening anterior to the patella. EFFUSION:Small joint effusion. OTHER: Negative. XR/XR knee LT 3V IMPRESSION: 1. Anterior soft tissue thickening suggestive of prepatellar bursitis. 2. Small joint effusion. 3. No acute bone abnormality. Electronically authenticated by: SHY MISTRY Date: 03/14/2024 08:16
--- NOTE | 2024-03-14 07:34 | XR_ITS ---
The [address] [address] Patient Name: MATTY WADE MRN: [id number] date: 1970 Sex: M Assigned Patient Location: ER Current Patient Location: ER Accession/Order Number: [id number] Exam Date: 03/14/2024 07:45 Report Date: 03/14/2024 08:19 At the request of: SERA WAYNE Procedure: XR ankle LT min 3V PROCEDURE: XR ankle LT min 3V HISTORY: fall COMPARISON: None. FINDINGS: BONES:Spiral fracture of distal fibula at the diametaphyseal junction with 8 mm posterior displacement and 7 mm lateral displacement of the distal fragment. Prominent widening of joint space between the medial malleolus and talus consistent with disruption of the ligaments. No appreciable widening between the tibia and fibula suggesting intact interosseous ligament. SOFT TISSUES:Anterior soft tissue swelling. EFFUSION:None visible. OTHER: Negative. XR/XR ankle LT min 3V IMPRESSION: 1. Acute distal fibular fracture with lateral displacement of the distal fibular fragment and the talus in relation to the tibia. Unstable ankle. Electronically authenticated by: SHY MISTRY Date: 03/14/2024 08:19
--- NOTE | 2024-03-14 07:35 | ED.LOWEXI1 ---
HPI HPI - Extremity Injury (Lower) General Chief Complaint: Fall Stated Complaint: LOWER EXTREMITY INJURY Time Seen by Provider: 03/14/24 07:30 Source: patient Mode of arrival: Wheelchair Limitations: no limitations History of Present Illness HPI Narrative: 53 male presents for left ankle pain. He has a history of sleep apnea and he fell about an hour ago while getting up. He complains of pain mostly in the left ankle and to a lesser degree his left knee. He did not seem to hit his head. The pain is severe and continuous. Related Data Home Medications ?Medication ?Instructions ?Recorded ?Confirmed carvedilol 25 mg tablet 25 mg PO BID 06/14/23 03/14/24 citalopram 20 mg tablet 20 mg PO DAILY 06/14/23 03/14/24 clonazepam 0.5 mg tablet 0.5 mg PO DAILY 06/14/23 03/14/24 doxazosin 8 mg tablet 8 mg PO DAILY 06/14/23 03/14/24 doxepin 10 mg capsule 10 mg PO DAILY PRN itching 06/14/23 03/14/24 furosemide 20 mg tablet 20 mg PO DAILY 06/14/23 03/14/24 gabapentin 600 mg tablet 600 mg PO BID 06/14/23 03/14/24 glycopyrrolate 1 mg tablet 1 mg PO BID 06/14/23 03/14/24 hydroxyzine pamoate 25 mg capsule 25 mg PO QPM 06/14/23 03/14/24 meclizine 25 mg tablet 25 mg PO DAILY 06/14/23 03/14/24 pantoprazole 40 mg tablet,delayed 40 mg PO DAILY 06/14/23 03/14/24 release sildenafil 25 mg tablet 25 mg PO DAILY 06/14/23 03/14/24 simvastatin 20 mg tablet 20 mg PO DAILY 06/14/23 03/14/24 testosterone cypionate 100 mg/mL 100 mg subcut .EVERY 2 WEEKS 06/14/23 03/14/24 intramuscular oil tizanidine 4 mg capsule 4 mg PO .EVERY NIGHT 06/14/23 03/14/24 aspirin 81 mg tablet,delayed 81 mg PO DAILY 09/04/23 01/03/24 release (Mig[facility] Low Dose Aspirin) modafinil 200 mg tablet 200 mg PO DAILY 09/04/23 03/14/24 potassium chloride 10 mEq 10 meq PO Q12H 09/04/23 03/14/24 tablet,extended release amantadine HCl 100 mg tablet 100 mg PO BID 12/28/23 03/14/24 biotin 10,000 mcg capsule mcg PO 12/28/23 cholecalciferol (vitamin D3) 125 5,000 unit PO DAILY 12/28/23 03/14/24 mcg (5,000 unit) capsule melatonin 10 mg capsule 10 mg PO DAILY 12/28/23 03/14/24 multivitamin (Daily Multi-Vitamin 1 tab PO DAILY 12/28/23 03/14/24 tablet) ondansetron 4 mg disintegrating 4 mg PO TID-QID PRN nausea and 12/28/23 01/03/24 tablet vomiting sumatriptan succinate 100 mg tablet 100 mg PO Q2H PRN migraine headache 12/28/23 03/14/24 Previous Rx's ?Medication ?Instructions ?Recorded aspirin 81 mg tablet,delayed 81 mg PO BID 30 days #60 tabs 01/03/24 release (Adult Low Dose Aspirin) cefadroxil 500 mg capsule 500 mg PO BID 7 days #14 caps 01/03/24 cephalexin 500 mg capsule 500 mg PO TID 7 days #21 caps 02/05/24 sodium chloride 0.65 % nasal spray 1 spray intranasal BID PRN dry 02/05/24 aerosol nasal passages #15 mL Allergies Allergy/AdvReac Type Severity Reaction Status Date / Time No Known Drug Allergies Allergy Verified 03/14/24 07:30 Opioid HPI Opioid Management Most Recent Pain and Opioid Data: Last Pain Scale 7 01/03/24 06:28 Review of Systems ROS Narrative A ten point review of systems is negative except as noted above. [facility] Medical History Prolonged emergence from general anesthesia ?T88.59XA - Other complications of anesthesia, initial encounter (ICD-10) Pain management contract signed ?Z02.89 - Encounter for other administrative examinations (ICD-10) Back pain ?M54.9 - Dorsalgia, unspecified (ICD-10) PTSD (post-traumatic stress disorder) ?F43.10 - Post-traumatic stress disorder, unspecified (ICD-10) Depression ?F32.A - Depression, unspecified (ICD-10) Dysphagia ?R13.10 - Dysphagia, unspecified (ICD-10) Uvulitis ?K12.2 - Cellulitis and abscess of mouth (ICD-10) Insomnia ?G47.00 - Insomnia, unspecified (ICD-10) Migraine ?G43.909 - Migraine, unspecified, not intractable, without status migrainosus (ICD-10) GERD (gastroesophageal reflux disease) ?K21.9 - Gastro-esophageal reflux disease without esophagitis (ICD-10) Dyspnea on exertion ?R06.09 - Other forms of dyspnea (ICD-10) Heart valve disorder ?I38 - Endocarditis, valve unspecified (ICD-10) Hypoglycemia ?E16.2 - Hypoglycemia, unspecified (ICD-10) Delayed recovery from anesthesia Chronic foot ulcer ?L97.509 - Non-pressure chronic ulcer of other part of unspecified foot with unspecified severity (ICD-10) 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 - Central serous chorioretinopathy, unspecified eye (ICD-10) Chronic pain ?G89.29 - Other chronic pain (ICD-10) Narcolepsy ?G47.419 - 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) Anxiety ?F41.9 - Anxiety disorder, unspecified (ICD-10) Upper back pain ?M54.9 - Dorsalgia, unspecified (ICD-10) Low back pain ?M54.50 - Low back pain, unspecified (ICD-10) TMJ (dislocation of temporomandibular joint) ?S03.00XA - Dislocation of jaw, unspecified side, initial encounter (ICD-10) Obesity ?E66.9 - Obesity, unspecified (ICD-10) Sleep apnea ?G47.30 - Sleep apnea, unspecified (ICD-10) Hypertension ?I10 - Essential (primary) hypertension (ICD-10) Surgical History H/O foot surgery ?Z98.890 - Other specified postprocedural states (ICD-10) H/O radiofrequency ablation (RFA) of nerve of lumbar spine ?Z98.890 - Other specified postprocedural states (ICD-10) History of fusion of cervical spine ?Z98.1 - Arthrodesis status (ICD-10) H/O inguinal hernia repair ?Z98.890 - Other specified postprocedural states (ICD-10) ?Z87.19 - Personal history of other diseases of the digestive system (ICD-10) H/O repair of rotator cuff ?Z98.890 - Other specified postprocedural states (ICD-10) History of uvulopalatopharyngoplasty ?Z98.890 - Other specified postprocedural states (ICD-10) Family History Other Family history of diabetes mellitus Family history of hypertension Family history of myocardial infarction Family history of stroke Social History Within the past year, how often did you have a drink containing alcohol: monthly or less Smoking status: Never smoker Non-prescribed substance use: cannabis (any form) Previous occupational history: unemployed Highest level of school completed/degree received: high school graduate Exam Narrative Exam Narrative: Nurses note and vital signs reviewed and patient is not hypoxic. General: The patient appears well and in no apparent distress. Patient is resting comfortably on cart. Skin: Warm, dry, no pallor noted. There is no rash noted. Head: Normocephalic, atraumatic Eye: Normal conjunctiva, no drainage Ears, Nose, Mouth, and Throat: oral mucosa is moist. Nares patent. Cardiovascular: Regular Rate and Rhythm Respiratory: Patient is in no distress, no accessory muscle use, lungs are clear to auscultation, no wheezing, rales or rhonchi Back: non-tender GI: Soft and nontender Musculoskeletal: The patient has no evidence of calf tenderness, no pitting edema, symmetrical pulses noted bilaterally Neurological: Awake and alert Psychiatric: Cooperative Constitutional Vital Signs, click to edit/add: Last Vital Signs Temp 98.6 F 03/14/24 07:27 Pulse 102 H 03/14/24 07:27 Resp 24 H 03/14/24 07:27 BP 138/94 H 03/14/24 07:27 Pulse Ox 92 L 03/14/24 07:27 O2 Del Method Room Air 03/14/24 07:27 Course Vital Signs Vital signs: Vital Signs Temperature 98.6 F 03/14/24 07:27 Pulse Rate 102 H 03/14/24 07:27 Respiratory Rate 24 H 03/14/24 07:27 Blood Pressure 138/94 H 03/14/24 07:27 Pulse Oximetry 92 L 03/14/24 07:27 Oxygen Delivery Method Room Air 03/14/24 07:27 Temperature 98.6 F 03/14/24 07:27 Pulse Rate 102 H 03/14/24 07:27 Respiratory Rate 24 H 03/14/24 07:27 Blood Pressure 138/94 H 03/14/24 07:27 Pulse Oximetry 92 L 03/14/24 07:27 Oxygen Delivery Method Room Air 03/14/24 07:27 MDM - Extremity Injury (Lower) MDM Narrative Medical decision making narrative: Distal fibular fracture with disrupted ankle mortise is identified. Splint applied by me, application checked by me and found to be appropriate, he is neurovascular intact. X-rays reviewed with Dr. Vallejo and he will be admitted to Dr. Mendez. Treatment diagnosis and disposition were discussed with the patient. Differential Diagnosis Differential diagnosis: Likely ankle sprain and strain and other (Ankle fracture) Imaging Data Ankle and knee x-rays: Radiologist's impression: ITS Impressions Ankle X-Ray 03/14/24 07:34 IMPRESSION: 1. Acute distal fibular fracture with lateral displacement of the distal fibular fragment and the talus in relation to the tibia. Unstable ankle. Electronically authenticated by: SHY MISTRY Date: 03/14/2024 08:19 Knee X-Ray 03/14/24 07:34 IMPRESSION: 1. Anterior soft tissue thickening suggestive of prepatellar bursitis. 2. Small joint effusion. 3. No acute bone abnormality. Electronically authenticated by: SHY MISTRY Date: 03/14/2024 08:16 Discharge Plan Discharge Chief Complaint: Fall Clinical Impression: Ankle fracture Patient Disposition: Admitted As Inpatient Time of Disposition Decision: 08:47 Condition: Good
[2024-03-14] MEDS: MORPHINE SULFATE 4 MG/ML VIAL IV ×3 (09:15→20:26)
[2024-03-14 09:23] LABS: Basophils Absolute Auto 0.1 10^3/uL (0.0-0.1); Basophils Percent Auto 0.6 % (0.2-2.0); Eosinophils Absolute Auto 0.3 10^3/uL (0.0-0.7); Hematocrit 49.1 % (42.0-54.0); Hemoglobin 15.3 g/dL (14.0-18.0); Immature Granulocytes Abs Auto 0.07 10^3/uL (0.00-0.03); Immature Granulocytes Pct Auto 0.7 % (0.0-0.5); Lymphocytes Absolute Auto 0.6 10^3/uL (1.2-3.8); Lymphocytes Percent Auto 5.5 % (20.5-60.0); Mean Corpuscular HGB Conc 31.2 g/dL (29.9-35.2); Mean Corpuscular Hemoglobin 26.6 pg (25.9-34.0); Mean Corpuscular Volume 85.4 fL (80.0-94.0); Mean Platelet Volume 9.9 fL (9.5-13.5); Monocytes Absolute Auto 1.2 10^3/uL (0.3-0.8); Monocytes Percent Auto 11.6 % (1.7-12.0); Neutrophils Absolute Auto 7.9 10^3/uL (1.4-6.5); Neutrophils Percent Auto 78.6 % (43.0-75.0); Platelet Count 159 10^3/uL (150-450); Red Blood Count 5.75 10^6/uL (4.70-6.10); Red Cell Distribution Width 17.1 % (11.0-15.0); White Blood Count 10.1 10^3/uL (4.0-11.0)
[2024-03-14 09:34] LABS: Anion Gap 11.5; BUN Creatinine Ratio 11.5; Calcium 9.3 mg/dL (8.5-10.1); Carbon Dioxide 31.1 mmol/L (21.0-32.0); Chloride 99 mmol/L (98-107); Estimated GFR (African America >60 (>=60); Estimated GFR (Non-African Ame >60 (>=60); Glucose 107 mg/dL (74-106); Potassium 3.6 mmol/L (3.5-5.1); Sodium 138 mmol/L (136-145)
--- OUTSIDE RECORDS SUMMARY | 2024-03-14 09:41 | XMS_ITS | CCD ---
Author Organization [facility] CliniSywv Care Team Providers Care Brusher Operator Name Role Phone UNKNOWN, PROVIDER Admitting [...] source) Aspartame Drug Allergy 08-17-20 18 [facility] (1 source) avoid; Translations: [Unknown] Propensity to adverse reactions (disorder) 08-17-20 18 [facility] (1 source) vitamin B12; Translations: [cyanocobalamin] Drug Allergy Unknown (qualifier value) [facility] (1 source) Acetaminophen / HYDROcodone Drug Allergy [facility] (1 source) Corticosteroids Drug allergy (disorder) [facility] (1 source) fentaNYL Drug Allergy [facility] (1 source) Misc-Food; Translations: [Misc-Food] Food allergy (disorder) [facility] (1 source) Corticosteroids Drug allergy (disorder) 05-14-20 18 [facility] Medications Current Medications Medication Drug [...] Bedtime May 14, 2018 12:00am Vit D3-Folic Qyqv-V6-S1-B12 (1 source) Start: 05-14-2018 take 1 tablet by mouth once daily Vit D3-Folic Upfz-Z8-V0-B12 Active 1 TAB PO Daily May 14, [...] Onset: 3 Chronic Other aftercare (1 source) [facility] (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; Translations: [DENTURE TECHNICIAN 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 ASPIRIN] Onset: 3 Episodic Other aftercare (1 source) Other terminal makeup operator (current) drug therapy; Translations: [OTH DENTURE TECHNICIAN CURRENT DRUG THERAPY] Onset: 3 Episodic Other [...] Test Name Value Interpretation Reference Range Facility [facility] 01-03-2024 L Specimen: [id number] Received: 01/03/24 Status: GIOVANNI Jacinto Num: [id number] Spec Type: Surgical Subm Dr: Trey Vallejo DPM, MS Tissues: A Bone Fragments - Pathologic Fracture (PROXIMAL PHALANX RIGHT HALLU) Procedures: HE/2, Gross/Micro L5, Decalcification Age/ Patient Sex Location Account Attending Physician Matty Garces 53/M LABELL [id number] Trey Vallejo DPM, MS SPEC NUM: [id number] RECD: 01/03/24 STATUS: GIOVANNI KRAMER NUM: [id number] SOFY: 01/03/[address]: Trey Vallejo DPM, MS ENTERED: 01/03/[address] [facility] [address]: Toño,Ayesha SPEC TYPE: Surgical DEPT: SEEMA [...] Sectioning reveals unremarkable yellow, spongy bone matrix. Light Rail Signal Technician sections are submitted in A1 following decal. Clinical history: Non-pressure chronic ulcer . Right hallux IPJ arthroplasty with wound debridement and graft application TW Specimen: [id number] Received: 01/03/24 Status: GIOVANNI Jacinto Num: [id number] Spec Type: Surgical Subm Dr: Trey Vallejo,DPJose Eduardo, MS Tissues: A Bone Fragments - Pathologic Fracture (PROXIMAL PHALANX RIGHT HALLU) Procedures: HE/2, Gross/Micro L5, Decalcification Patient: Matty Garces [id number] (Continued) Specimen: [id number] Received: 01/03/24 (Continued) Signed (signature on file) Viral Rae MD 01/06/24 1838 Specimen: [id number] Received: 01/03/24 Status: GIOVANNI Ophelia Num: [id number] Spec Type: Surgical Subm Dr: Trey Vallejo,DPM, MS Tissues: A Bone Fragments - Pathologic Fracture (PROXIMAL PHALANX RIGHT HALLU) Procedures: HE/2, Gross/Micro L5, Decalcification Patient: Matty Garces [id number] (Continued) Specimen: [id number] Received: 01/03/24 (Continued) CPT Codes 31091 Specimen: [id number] Received: 01/03/24 Status: GIOVANNI Jacinto Num: [id number] Spec Type: Surgical Subm Dr: Trey Vallejo,DPM, MS Tissues: A Bone Fragments - Pathologic Fracture (PROXIMAL PHALANX RIGHT HALLU) Procedures: HE/2, Gross/Micro L5, Decalcification Patient: Matty Garces [id number] (Continued) Signed (signature on file) Viral Rae MD 01/06/241837 Normal [facility] XR cervical spine 5V*on 02-12 XR cervical spine 5V* [place] [address] XRay Report Signed Patient: Matty Garces MR#: [id number] [birth year] : 1970 Acct:[id number] Age/Sex: 52 / M ADM Date: 03/11/23 Loc: ICXD Room: Type: [facility] Attending Dr: Rubén Geiger MD [...] Crow Contreras M.D.03/11/2023 3:48 PM Dictation Location: [place] [address] Transcribed By: [facility] 03/11/23 1548 Dictated By: Crow Contreras DO 03/11/23 1544 Signed By: 03/11/23 1548 Normal [facility] Physician [facility] CT CSPINE WO CONon [...] by: ANGEL JORDAN Date: 2022-12-06 06:37 Normal [facility] CT FACIAL BONES WO CONon [...] JORDAN Date: 2022-12-06 06:41 Normal [facility] CT HEAD WO CONon 12-06-2022 CT [...] JORDAN Date: 2022-12-06 06:39 Normal [facility] XR ELBOW RT MIN 3 VIEWSon XR ELBOW RT MIN 3 VIEWS Exam: Radiographs: XR ELBOW RT MIN 3 VIEWS Reason for exam: Elbow pain Comparison: None IMPRESSION: Right elbow degenerative changes. Olecranon spur. Remainder of the right elbow is unremarkable. Electronically authenticated by: MICHAEL CASANOVA Date: 2022-12-06 07:22 Normal [facility] XR FOREARM RT 2Von 3 XR FOREARM RT 2V Exam: Radiographs: XR FOREARM RT 2V Reason for exam: Forearm pain Comparison: None IMPRESSION: Mild degenerative changes in the right elbow and wrist. Right forearm is otherwise unremarkable. Electronically authenticated by: MICHAEL CASANOVA Date: 2022-12-06 08:07 Normal [facility] PSA, FREE AND TOTAL RATIOon 12-03-2022 % Free PSA 9.0 % Normal [facility] Comment on above: Result Comment: The [...] Performed By: #### P SAFREE #### [facility] [address] [place] [address] [address] Shabnam Rae Prostate specific Ag [Mass/Vol] 5.9 ng/mL Critically high 0.0-4.0 [facility] Comment on above: Result Comment: Roch e ECLIA methodology. . According to the [place] [employer], Serum PSA should decrease and [...] Performed By: #### P SAFREE #### [facility] [address] [place] [address] [address] Shabnam Rae PSA, Free 0.53 ng/mL Normal N/A [facility] Comment on above: Result Comment: Roch e ECLIA methodology. Performed By: #### P SAFREE #### [facility] [address] [place], [place] [address] Dr. Shabnam Rae INSULINon 12-02-2022 Insulin 20.2 uIU/mL Normal 2.6-24.9 [facility] Comment on above: Performed By: #### P SASC #### [facility] [address] [place], [place] [address] Dr. Shabnam Rae TESTOSTERONE, TOTALon 2022 Testosterone [Mass/Vol] 256 ng/dL Critically low 264-916 [facility] Comment on above: Result Comment: Adul t male reference interval is based on a population of healthy nonobese males (BMI <30) between 19 and 39 years old. adia Ch.al. JCEM 2017,102;5025-3764. PMID: [id number]. Performed By: #### P SASC #### [facility] [address] [place] [address] Dr. Shabnam Rae CBC AUTO DIFFon 12-01-2022 BASO # 0.1 103/ul Normal 0.0-0.1 [facility] Comment on above: Performed By: #### P SASC #### [facility] [address] [place] [address] Dr. Shabnam Rae Basophils/100 WBC (Bld) 1.0 % Normal 0.2-2.0 [facility] Comment on above: Performed By: #### P SASC #### [facility] [address] [place] [address] Dr. Shabnam Rae EO # 0.1 103/ul Normal 0.0-0.7 [facility] Comment on above: Performed By: #### P SASC #### [facility] [address] [place] [address] Dr. Shabnam Rae Eosinophils/100 WBC (Bld) 1.8 % Normal 0.9-7.0 [facility] Comment on above: Performed By: #### P SASC #### [facility] [address] [place] [address] Dr. Shabnam Rae Erythrocyte distribution width (RBC) [Ratio] 14.8 % Normal 11.0-15.0 [facility] Comment on above: Performed By: #### P SASC #### [facility] [address] [place] [address] Dr. Shabnam Rae Hematocrit (Bld) [Volume fraction] 49.9 % Normal 42.0-54.0 [facility] Comment on above: Performed By: #### P SASC #### [facility] [address] [place] [address] Dr. Shabnam Rae Hemoglobin (Bld) [Mass/Vol] 16.0 g/dL Normal 14.0-18.0 [facility] Comment on above: Performed By: #### P SASC #### [facility] [address] [place] [address] [address] Shabnam Rae IG # 0.04 10e3/ul Critically high 0.00-0.03 [facility] Comment on above: Performed By: #### P SASC #### [facility] [address] [place] [address] [address] Shabnam Rae IG % 0.6 % Critically high 0.0-0.5 [facility] Comment on above: Performed By: #### P SASC #### [facility] [address] [place] [address] Dr. Shabnam Rae LYMPH # 1.0 103/ul Critically low 1.2-3.8 [facility] Comment on above: Performed By: #### P SASC #### [facility] [address] [place] [address] Dr. Shabnam Rae Lymphocytes/100 WBC (Bld) 16.2 % Critically low 20.5-60.0 [facility] Comment on above: Performed By: #### P SASC #### [facility] [address] [place] [address] Dr. Shabnam Rae MANUAL DIFF REQ NO Normal [facility] Comment on above: Performed By: #### P SASC #### [facility] [address] [place] [address] Dr. Shabnam Rae MCH (RBC) [Entitic mass] 27.7 pg Normal 25.9-34.0 [facility] Comment on above: Performed By: #### P SASC #### [facility] [address] [place] [address] Dr. Shabnam Rae MCHC (RBC) [Mass/Vol] 32.1 g/dL Normal 29.9-35.2 [facility] Comment on above: Performed By: #### P SASC #### [facility] [address] [place] [address] Dr. Shabnam Rae MCV (RBC) [Entitic vol] 86.3 fL Normal 80.0-94.0 [facility] Comment on above: Performed By: #### P SASC #### [facility] [address] [place] [address] [address] Shabnam Rae MONO # 0.5 103/ul Normal 0.3-0.8 [facility] Comment on above: Performed By: #### P SASC #### [facility] [address] [place] [address] Dr. Shabnam Rae Monocytes/100 WBC (Bld) 7.6 % Normal 1.7-12.0 [facility] Comment on above: Performed By: #### P SASC #### [facility] [address] [place] [address] Dr. Shabnam Rae NEUT # 4.6 103/ul Normal 1.4-6.5 [facility] Comment on above: Performed By: #### P SASC #### [facility] [address] [place] [address] Dr. Shabnam Rae Neutrophils/100 WBC (Bld) 72.8 % Normal 43.0-75.0 [facility] Comment on above: Performed By: #### P SASC #### [facility] [address] [place] [address] Dr. Shabnam Rae Platelet mean volume (Bld) [Entitic vol] 9.8 fL Normal 9.5-13.5 [facility] Comment on above: Performed By: #### P SASC #### [facility] [address] [place] [address] Dr. Shabnam Rae PLT 203 103/ul Normal 150-450 [facility] Comment on above: Performed By: #### P SASC #### [facility] [address] [place] [address] Dr. Shabnam Rae RBC 5.78 106/ul Normal 4.70-6.10 [facility] Comment on above: Performed By: #### P SASC #### [facility] [address] [place] [address] Dr. Shabnam Rae WBC 6.3 103/ul Normal 4.0-11.0 [facility] Comment on above: Performed By: #### P SASC #### [facility] [address] [place] [address] [address] Shabnam Rae FREE THYROXINE INDEX T7on FTI 2.05 Normal 1.30-4.50 [facility] Comment on above: Performed By: #### T SH, CMP, LIPID, T7, URIC #### [facility] [address] [place] [address] [address] Shabnam Rae T3U 33.0 % Normal 33.0-40.0 [facility] Comment on above: Performed By: #### T SH, CMP, LIPID, T7, URIC #### [facility] [address] [place] [address] [address] Shabnam Rae T4 [Mass/Vol] 6.20 ug/dL Normal 4.50-12.10 [facility] Comment on above: Performed By: #### T SH, CMP, LIPID, T7, URIC #### [facility] [address] [place] [address] Dr. Shabnam Rae GLYCOHEMOGLOBIN A1Con 2022 ADA RECOMMENDATION SEE BELOW Normal [facility] Comment on above: Result Comment: ADA RECOMMENDED LIMIT 4.0 - 6.0 ADA THERAPEUTIC TARGET < 7.0 ACTION SUGGESTED > 7.0 Performed By: #### P SASC #### [facility] [address] [place] [address] Dr. Shabnam Rae Glucose [Mass/Vol] 114 mg/dL Normal [facility] Comment on above: Performed By: #### P SASC #### [facility] [address] [place] [address] Dr. Shabnam Rae HbA1c (Bld) [Mass fraction] 5.6 % Normal 4.5-6.2 [facility] Comment on above: Performed By: #### P SASC #### [facility] [address] [place] [address] Dr. Shabnam Rae LIPID PROFILEon 12-01-2022 CHOL-HDL RATIO NORM SEE BELOW Normal [facility] Comment on above: Result Comment: 3.3 - 4.4 LOW RISK 4.4 - 7.1 AVERAGE RISK 7.1 - 11.0 MODERATE RISK >11.0 HIGH RISK Performed By: #### T SH, CMP, LIPID, T7, URIC #### [facility] [address] [place] [address] [address] Shabnam Rae Cholesterol [Mass/Vol] 176 mg/dL Normal <=200 [facility] Comment on above: Performed By: #### T SH, CMP, LIPID, T7, URIC #### [facility] [address] [place] [address] [address] Shabnam Rae Cholesterol in HDL [Mass/Vol] 48 mg/dL Normal 40-60 [facility] Comment on above: Performed By: #### T SH, CMP, LIPID, T7, URIC #### [facility] [address] [place] [address] [address] Shabnam Rae Cholesterol in LDL [Mass/Vol] 108.2 mg/dL Normal [facility] Comment on above: Performed By: #### T SH, CMP, LIPID, T7, URIC #### [facility] [address] [place] [address] [address] Shabnam Rae Cholesterol.total/Ch olesterol in HDL [Mass ratio] 3.7 {ratio} Normal [facility] Comment on above: Performed By: #### T SH, CMP, LIPID, T7, URIC #### [facility] [address] [place] [address] [address] Shabnam Rae HDL NORMAL > or = 60 mg/dl - LOW CARDIOVASCULAR RISK <40 mg/dl - HIGH CARDIOVASCULAR RISK Normal [facility] Comment on above: Performed By: #### T SH, CMP, LIPID, T7, URIC #### [facility] [address] [address] [address] Shabnam Rae LDL CALC NORMAL SEE BELOW Normal [facility] Comment on above: Result Comment: <100 mg/dl OPTIMAL 100 - 129 mg/dl NEAR OR ABOVE OPTIMAL 130 - 159 mg/dl BORDERLINE HIGH 160 - 189 mg/dl HIGH >190 mg/dl VERY HIGH Performed By: #### T SH, CMP, LIPID, T7, URIC #### [facility] [address] [address] [address] Shabnam Rae Triglyceride [Mass/Vol] 99 mg/dL Normal <=150 [facility] Comment on above: Performed By: #### T SH, CMP, LIPID, T7, URIC #### [facility] [address] [address] [address] Shabnam Rae VLDL CALC 19.8 mg/dL Normal [facility] Comment on above: Performed By: #### T SH, CMP, LIPID, T7, URIC #### [facility] [address] [place] [address] Dr. Shabnam Rae PROF 14(COMP METB)on 023 Albumin [Mass/Vol] 4.1 g/dL Normal 3.4-5.0 [facility] Comment on above: Performed By: #### T SH, CMP, LIPID, T7, URIC #### [facility] [address] [place] [address] Dr. Shabnam Rae Albumin/Globulin [Mass ratio] 1.1 {ratio} Normal [facility] Comment on above: Performed By: #### T SH, CMP, LIPID, T7, URIC #### [facility] [address] [place] [address] Dr. Shabnam Rae ALP [Catalytic activity/Vol] 101 U/L Normal 46-116 [facility] Comment on above: Performed By: #### T SH, CMP, LIPID, T7, URIC #### [facility] [address] [place] [address] Dr. Shabnam Rae ALT [Catalytic activity/Vol] 26 U/L Normal 16-63 [facility] Comment on above: Performed By: #### T SH, CMP, LIPID, T7, URIC #### [facility] [address] [place] [address] Dr. Shabnam Rae Anion gap [Moles/Vol] 10.1 mmol/L Normal [facility] Comment on above: Performed By: #### T SH, CMP, LIPID, T7, URIC #### [facility] [address] [place] [address] Dr. Shabnam Rae AST [Catalytic activity/Vol] 19 U/L Normal 15-37 [facility] Comment on above: Performed By: #### T SH, CMP, LIPID, T7, URIC #### [facility] [address] [address] [address] Shabnam Rae Bilirubin [Mass/Vol] 0.8 mg/dL Normal 0.2-1.0 [facility] Comment on above: Performed By: #### T SH, CMP, LIPID, T7, URIC #### [facility] [address] [place] [address] [address] Shabnam Rae Calcium [Mass/Vol] 9.5 mg/dL Normal 8.5-10.1 [facility] Comment on above: Performed By: #### T SH, CMP, LIPID, T7, URIC #### [facility] [address] [place] [address] Dr. Shabnam Rae Chloride [Moles/Vol] 102 mmol/L Normal 98-107 [facility] Comment on above: Performed By: #### T SH, CMP, LIPID, T7, URIC #### [facility] [address] [place] [address] Dr. Shabnam Rae CO2 [Moles/Vol] 32.4 mmol/L Critically high 21.0-32.0 [facility] Comment on above: Performed By: #### T SH, CMP, LIPID, T7, URIC #### [facility] [address] [place] [address] Dr. Shabnam Rae Creatinine [Mass/Vol] 1.00 mg/dL Normal 0.70-1.30 [facility] Comment on above: Performed By: #### T SH, CMP, LIPID, T7, URIC #### [facility] [address] [place] [address] Dr. Shabnam Rae EGFR-AF PANAMANIAN >60 Normal >=60 [facility] Comment on above: Performed By: #### T SH, CMP, LIPID, T7, URIC #### [facility] [address] [place] [address] Dr. Shabnam Rae EGFR-NON AF PANAMANIAN >60 Normal >=60 [facility] Comment on above: Performed By: #### T SH, CMP, LIPID, T7, URIC #### [facility] [address] [address] [address] Shabnam Rae Globulin (S) [Mass/Vol] 3.8 g/dL Normal [facility] Comment on above: Performed By: #### T SH, CMP, LIPID, T7, URIC #### [facility] [address] [place] [address] Dr. Shabnam Rae Glucose [Mass/Vol] 94 mg/dL Normal 74-106 [facility] Comment on above: Performed By: #### T SH, CMP, LIPID, T7, URIC #### [facility] [address] [place] [address] Dr. Shabnam Rae Potassium [Moles/Vol] 3.5 mmol/L Normal 3.5-5.1 [facility] Comment on above: Performed By: #### T SH, CMP, LIPID, T7, URIC #### [facility] [address] [place] [address] Dr. Shabnam Rae Protein [Mass/Vol] 7.9 g/dL Normal 6.4-8.2 [facility] Comment on above: Performed By: #### T SH, CMP, LIPID, T7, URIC #### [facility] [address] [place] [address] Dr. Shabnam Rae Sodium [Moles/Vol] 141 mmol/L Normal 136-145 [facility] Comment on above: Performed By: #### T SH, CMP, LIPID, T7, URIC #### [facility] [address] [place] [address] Dr. Shabnam Rae Urea nitrogen [Mass/Vol] 15.0 mg/dL Normal 7.0-18.0 [facility] Comment on above: Performed By: #### T SH, CMP, LIPID, T7, URIC #### [facility] [address] [place] [address] Dr. Shabnam Rae Urea nitrogen/Creatinine [Mass ratio] 15.0 mg/mg Normal [facility] Comment on above: Performed By: #### T SH, CMP, LIPID, T7, URIC #### [facility] [address] [place] [address] Dr. Shabnam Rae TSHon 12-01-2022 TSH 1.504 uIU/mL Normal 0.358-3.740 [facility] Comment on above: Performed By: #### T SH, CMP, LIPID, T7, URIC #### [facility] [address] [place] [address] Dr. Shabnam Rae URIC ACID SERUMon 12-01-2022 Urate [Mass/Vol] 6.9 mg/dL Normal 3.5-7.2 [facility] Comment on above: Performed By: #### T SH, CMP, LIPID, T7, URIC #### [facility] [address] [place] [address] Dr. Shabnam Rae TESTOSTERONE, TOTALon 2021 Testosterone [Mass/Vol] 244 ng/dL Critically low 264-916 [facility] Comment on above: Result Comment: Adul t male reference interval is based on a population of healthy nonobese males (BMI <30) between 19 and 39 years old. Travison, et.al. JCEM 2017,102;5243-4450. PMID: [id number]. Performed By: #### P SAFREE #### [facility] [address] [place] [address] Dr. Shabnam Rae TESTOSTERONE, FREE,DIRECT, T OTALon 03-16-2022 Free Testosterone(Direct) 2.1 pg/mL Critically low 7.2-24.0 [facility] Comment on above: Result Comment: Perf ormed at: BN Performed By: #### C VDTBH #### [facility] [address] [place] [address] Dr. Shabnam Rae Testosterone [Mass/Vol] 252 ng/dL Critically low 264-916 [facility] Comment on above: Result Comment: Adul t male reference interval is based on a population of healthy nonobese males (BMI <30) between 19 and 39 years old. Travison, et.al. JCEM 2017,102;3980-9033. PMID: [id number]. Performed at: CB Performed By: #### C VDTBH #### [facility] [address] [place], [place] [address] Dr. Shabnam Rae Formson 02-26-2022 Forms [id number] 7#1.00CD:127 Normal [facility] Screenson 02-26-2022 Screens [id number] 7#1.00CD:127 Normal [facility] Screens [id number] #1.00CD:127 Normal [facility] Urology Office/Clinic Noteon 02-26-2022 Urology Office/Clinic [...] (more content not included)... Normal [facility] Comment on above: Result Comment: Elec tronically Signed By: Viola Grullon MD\.br\Date and Time Signed: 02/26/22 00:20 EDT\.br\Electronically Co-Signed By: Helen Leung\.br\Date and Time Co-Signed: 02/25/22 11:16 EDT Ambulatory Visit Summaryon 0 02-25-2022 Ambulatory Visit Summary MATTY GARCES :1970 Visit Date:02/25/2022 Ambulatory Visit Instructions Your Diagnosis Hydrocele Varicocele BPH without urinary obstruction Tests Performed Urnls Dip Stick Auto w/o Microscopy POC 85249 Your Care Team Attending Physician - Viola [...] Appointments Follow Up with Mitchel DELGADO, [place] Gergorio, URO When: Where: Test Results Urnls Dip Stick Auto w/o Microscopy POC 65737 (02/25/2022) Bilirubin Urine Dipstick - Negative Blood Urine Dipstick - Negative Glucose Urine Dipstick - Negative Ketones Urine Dipstick - Negative Leukocytes Urine Dipstick - Negative Nitrite Urine Dipstick - Negative Protein Urine Dipstick - Negative Specific [facility] Urine Dipstick - >=1.030 Urine Appearance Urine [...] the hydrocele for any changes. ? Take prqv-tvk-vrknwvt and prescription medicines only as told by [...] (more content not included)... Normal [facility] Patient Educationon 02-26-20 Patient Education Urology [...] the hydrocele for any changes. ? Take ldxs-pem-uejoumz and prescription medicines only as told by [...] 02/17/2011 Document Revised: 09/10/2018 Document Reviewed: 09/10/2018 [employer] Interactive Patient Education ? 2019 [employer] Normal [facility] ED Note-Physicianon 02-04-20 22 ED Note-Physician [id number] 62#1.00CD:127 Normal [facility] RAD - Ultrasound Reporton RAD - Ultrasound Report [id number] #1.00CD:127 Normal [facility] RAD - CT Reporton 02-02-2022 RAD - CT Report [id number] 55#1.00CD:127 Normal [facility] RAD - CT Report [id number] 75#1.00CD:127 Normal [facility] CBC AUTO DIFFon 01-05-2022 BASO # 0.0 103/ul Normal 0.0-0.1 [facility] Comment on above: Performed By: #### P SAFREE #### [facility] [address] [address] [address] Shabnam Rae Basophils/100 WBC (Bld) 0.6 % Normal 0.2-2.0 [facility] Comment on above: Performed By: #### P SAFREE #### [facility] [address] [place] [address] Dr. Shabnam Rae EO # 0.1 103/ul Normal 0.0-0.7 [facility] Comment on above: Performed By: #### P SAFREE #### [facility] [address] [place] [address] Dr. Shabnam Rae Eosinophils/100 WBC (Bld) 2.1 % Normal 0.9-7.0 [facility] Comment on above: Performed By: #### P SAFREE #### [facility] [address] [place] [address] Dr. Shabnam Rae Erythrocyte distribution width (RBC) [Ratio] 13.1 % Normal 11.0-15.0 [facility] Comment on above: Performed By: #### P SAFREE #### [facility] [address] [place] [address] Dr. Shabnam Rae Hematocrit (Bld) [Volume fraction] 43.1 % Normal 42.0-54.0 [facility] Comment on above: Performed By: #### P SAFREE #### [facility] [address] [place] [address] Dr. Shabnam Rae Hemoglobin (Bld) [Mass/Vol] 13.7 g/dL Critically low 14.0-18.0 [facility] Comment on above: Performed By: #### P SAFREE #### [facility] [address] [address] [address] Shabnam Rae IG # 0.04 10e3/ul Critically high 0.00-0.03 [facility] Comment on above: Performed By: #### P SAFREE #### [facility] [address] [address] [address] Shabnam Rae IG % 0.6 % Critically high 0.0-0.5 [facility] Comment on above: Performed By: #### P SAFREE #### [facility] [address] [address] [address] Shabnam Rae LYMPH # 0.9 103/ul Critically low 1.2-3.8 [facility] Comment on above: Performed By: #### P SAFREE #### [facility] [address] [place] [address] Dr. Shabnam Rae Lymphocytes/100 WBC (Bld) 13.1 % Critically low 20.5-60.0 [facility] Comment on above: Performed By: #### P SAFREE #### [facility] [address] [address] [address] Shabnam Rae MANUAL DIFF REQ NO Normal [facility] Comment on above: Performed By: #### P SAFREE #### [facility] [address] [place] [address] Dr. Shabnam Rae MCH (RBC) [Entitic mass] 29.5 pg Normal 25.9-34.0 [facility] Comment on above: Performed By: #### P SAFREE #### [facility] [address] [address] [address] Shabnam Rae MCHC (RBC) [Mass/Vol] 31.8 g/dL Normal 29.9-35.2 [facility] Comment on above: Performed By: #### P SAFREE #### [facility] [address] [place] [address] Dr. Shabnam Rae MCV (RBC) [Entitic vol] 92.9 fL Normal 80.0-94.0 [facility] Comment on above: Performed By: #### P SAFREE #### [facility] [address] [address] [address] Shabnam Rae MONO # 0.4 103/ul Normal 0.3-0.8 [facility] Comment on above: Performed By: #### P SAFREE #### [facility] [address] [address] [address] Shabnam Rae Monocytes/100 WBC (Bld) 5.4 % Normal 1.7-12.0 [facility] Comment on above: Performed By: #### P SAFREE #### [facility] [address] [address] [address] Shabnam Rae NEUT # 5.2 103/ul Normal 1.4-6.5 [facility] Comment on above: Performed By: #### P SAFREE #### [facility] [address] [place] [address] Dr. Shabnam Rae Neutrophils/100 WBC (Bld) 78.2 % Critically high 43.0-75.0 [facility] Comment on above: Performed By: #### P SAFREE #### [facility] [address] [place] [address] Dr. Shabnam Rae Platelet mean volume (Bld) [Entitic vol] 10.9 fL Normal 9.5-13.5 [facility] Comment on above: Performed By: #### P SAFREE #### [facility] [address] [place] [address] Dr. Shabnam Rae PLT 153 103/ul Normal 150-450 [facility] Comment on above: Performed By: #### P SAFREE #### [facility] [address] [place] [address] Dr. Shabnam Rae RBC 4.64 106/ul Critically low 4.70-6.10 [facility] Comment on above: Performed By: #### P SAFREE #### [facility] [address] [address] [address] Shabnam Rae WBC 6.6 103/ul Normal 4.0-11.0 [facility] Comment on above: Performed By: #### P SAFREE #### [facility] [address] [place] [address] Dr. Shabnam Rae CRPon 01-05-2022 CRP 0.9 mg/dL Normal <=1.0 [facility] Comment on above: Performed By: #### P SAFREE #### [facility] [address] [place] [address] Dr. Shabnam Rae PROF 14(COMP METB)on 022 Albumin [Mass/Vol] 3.6 g/dL Normal 3.4-5.0 [facility] Comment on above: Performed By: #### P SAFREE #### [facility] [address] [place] [address] Dr. Shabnam Rae Albumin/Globulin [Mass ratio] 1.0 {ratio} Normal [facility] Comment on above: Performed By: #### P SAFREE #### [facility] [address] [place] [address] Dr. Shabnam Rae ALP [Catalytic activity/Vol] 114 U/L Normal 46-116 [facility] Comment on above: Performed By: #### P SAFREE #### [facility] [address] [place] [address] Dr. Shabnam Rae ALT [Catalytic activity/Vol] 26 U/L Normal 16-63 [facility] Comment on above: Performed By: #### P SAFREE #### [facility] [address] [place] [address] Dr. Shabnam Rae Anion gap [Moles/Vol] 9.3 mmol/L Normal [facility] Comment on above: Performed By: #### P SAFREE #### [facility] [address] [place] [address] Dr. Shabnam Rae AST [Catalytic activity/Vol] 19 U/L Normal 15-37 [facility] Comment on above: Performed By: #### P SAFREE #### [facility] [address] [place] [address] Dr. Shabnam Rae Bilirubin [Mass/Vol] 0.5 mg/dL Normal 0.2-1.0 [facility] Comment on above: Performed By: #### P SAFREE #### [facility] [address] [place], [place] [id number] Dr. Shabnam Rae Calcium [Mass/Vol] 8.9 mg/dL Normal 8.5-10.1 [facility] Comment on above: Performed By: #### P SAFREE #### [facility] [address] [place] [address] Dr. Shabnam Rae Chloride [Moles/Vol] 106 mmol/L Normal 98-107 [facility] Comment on above: Performed By: #### P SAFREE #### [facility] [address] [place] [address] Dr. Shabnam Rae CO2 [Moles/Vol] 30.7 mmol/L Normal 21.0-32.0 [facility] Comment on above: Performed By: #### P SAFREE #### [facility] [address] [place] [address] Dr. Shabnam Rae Creatinine [Mass/Vol] 1.15 mg/dL Normal 0.70-1.30 [facility] Comment on above: Performed By: #### P SAFREE #### [facility] [address] [place] [address] Dr. Shabnam Rae EGFR-AF PANAMANIAN >60 Normal >=60 [facility] Comment on above: Performed By: #### P SAFREE #### [facility] [address] [place] [address] Dr. Shabnam Rae EGFR-NON AF PANAMANIAN >60 Normal >=60 [facility] Comment on above: Performed By: #### P SAFREE #### [facility] [address] [place] [address] Dr. Shabnam Rae Globulin (S) [Mass/Vol] 3.6 g/dL Normal [facility] Comment on above: Performed By: #### P SAFREE #### [facility] [address] [place] [address] Dr. Shabnam Rae Glucose [Mass/Vol] 117 mg/dL Critically high 74-106 [facility] Comment on above: Performed By: #### P SAFREE #### [facility] [address] [place] [address] Dr. Shabnam Rae Potassium [Moles/Vol] 4.0 mmol/L Normal 3.5-5.1 [facility] Comment on above: Performed By: #### P SAFREE #### [facility] [address] [address] [address] Shabnam Rae Protein [Mass/Vol] 7.2 g/dL Normal 6.1-8.2 [facility] Comment on above: Performed By: #### P SAFREE #### [facility] [address] [place] [address] Dr. Shabnam Rae Sodium [Moles/Vol] 142 mmol/L Normal 136-145 [facility] Comment on above: Performed By: #### P SAFREE #### [facility] [address] [place] [address] Dr. Shabnam Rae Urea nitrogen [Mass/Vol] 15.0 mg/dL Normal 7.0-18.0 [facility] Comment on above: Performed By: #### P SAFREE #### [facility] [address] [place] [address] Dr. Shabnam Rae Urea nitrogen/Creatinine [Mass ratio] 13.0 mg/mg Normal [facility] Comment on above: Performed By: #### P SAFREE #### [facility] [address] [place] [address] Dr. Shabnam Rae US SCROTUMon 01-05-2022 US [...] CAICEDO Date: 2022-01-05 08:48 Normal [facility] CBC AUTO DIFFon 01-04-2022 BASO # 0.1 103/ul Normal 0.0-0.1 [facility] Comment on above: Performed By: #### C BC #### [facility] [address] [place] [address] Dr. Shabnam Rae Basophils/100 WBC (Bld) 0.8 % Normal 0.2-2.0 [facility] Comment on above: Performed By: #### C BC #### [facility] [address] [place] [address] Dr. Shabnam Rae EO # 0.1 103/ul Normal 0.0-0.7 [facility] Comment on above: Performed By: #### C BC #### [facility] [address] [place] [address] Dr. Shabnam Rae Eosinophils/100 WBC (Bld) 1.5 % Normal 0.9-7.0 [facility] Comment on above: Performed By: #### C BC #### [facility] [address] [place] [address] Dr. Shabnam Rae Erythrocyte distribution width (RBC) [Ratio] 12.8 % Normal 11.0-15.0 [facility] Comment on above: Performed By: #### C BC #### [facility] [address] [place] [address] Dr. Shabnam Rae Hematocrit (Bld) [Volume fraction] 40.3 % Critically low 42.0-54.0 [facility] Comment on above: Performed By: #### C BC #### [facility] [address] [place] [address] Dr. Shabnam Rae Hemoglobin (Bld) [Mass/Vol] 13.4 g/dL Critically low 14.0-18.0 [facility] Comment on above: Performed By: #### C BC #### [facility] [address] [place] [address] Dr. Shabnam Rae IG # 0.03 10e3/ul Normal 0.00-0.03 [facility] Comment on above: Performed By: #### C BC #### [facility] [address] [place] [address] Dr. Shabnam Rae IG % 0.5 % Normal 0.0-0.5 [facility] Comment on above: Performed By: #### C BC #### [facility] [address] [place] [address] Dr. Shabnam Rae LYMPH # 1.0 103/ul Critically low 1.2-3.8 [facility] Comment on above: Performed By: #### C BC #### [facility] [address] [place] [address] Dr. Shabnam Rae Lymphocytes/100 WBC (Bld) 16.4 % Critically low 20.5-60.0 [facility] Comment on above: Performed By: #### C BC #### [facility] [address] [place] [address] Dr. Shabnam Rae MANUAL DIFF REQ NO Normal [facility] Comment on above: Performed By: #### C BC #### [facility] [address] [place] [address] Dr. Shabnam Rae MCH (RBC) [Entitic mass] 29.5 pg Normal 25.9-34.0 [facility] Comment on above: Performed By: #### C BC #### [facility] [address] [place] [address] Dr. Shabnam Rae MCHC (RBC) [Mass/Vol] 33.3 g/dL Normal 29.9-35.2 [facility] Comment on above: Performed By: #### C BC #### [facility] [address] [place] [address] Dr. Shabnam Rae MCV (RBC) [Entitic vol] 88.8 fL Normal 80.0-94.0 [facility] Comment on above: Performed By: #### C BC #### [facility] [address] [place] [address] Dr. Shabnam Rae MONO # 0.6 103/ul Normal 0.3-0.8 [facility] Comment on above: Performed By: #### C BC #### [facility] [address] [place] [address] Dr. Shabnam Rae Monocytes/100 WBC (Bld) 9.6 % Normal 1.7-12.0 [facility] Comment on above: Performed By: #### C BC #### [facility] [address] [place] [address] Dr. Shabnam Rae NEUT # 4.4 103/ul Normal 1.4-6.5 [facility] Comment on above: Performed By: #### C BC #### [facility] [address] [place] [address] Dr. Shabnam Rae Neutrophils/100 WBC (Bld) 71.2 % Normal 43.0-75.0 [facility] Comment on above: Performed By: #### C BC #### [facility] [address] [place] [address] Dr. Shabnam Rae Platelet mean volume (Bld) [Entitic vol] 10.8 fL Normal 9.5-13.5 [facility] Comment on above: Performed By: #### C BC #### [facility] [address] [place] [address] Dr. Shabnam Rae PLT 158 103/ul Normal 150-450 [facility] Comment on above: Performed By: #### C BC #### [facility] [address] [place], [place] [id number] Dr. Shabnam Rae RBC 4.54 106/ul Critically low 4.70-6.10 [facility] Comment on above: Performed By: #### C BC #### [facility] [address] [place] [address] Dr. Shabnam Rae WBC 6.2 103/ul Normal 4.0-11.0 [facility] Comment on above: Performed By: #### C #### [facility] [address] [address] [address] ABD/PELV W CONon [...] BERNAL Date: 2022-01-04 05:19 Normal [facility] CT PELVIS WO CONon 2 CT [...] MANUEL HOUGH Date: 2022-01-04 08:54 Normal [facility] CULTURE URINEon 01-04-2022 CULTURE URINE Culture Observations: No growth Normal [facility] Comment on above: Performed By: #### P [facility] #### [facility] [address] [place] [address] Dr. Shabnam Rae Covid-19 PCR ([facility])on 12-13 SARS-CoV-2 (COVID-19) RNA ELIJAH+probe Ql (Unsp spec) Not detected Normal NOT DETECTED [facility] Comment on above: Result Comment: When diagnostic testing is negative, the possibility of a false negative should be considered in the context of a patient's recent exposures and the presence of clinical signs and symptoms consistent with SARS-CoV-2. This test is not yet approved or cleared by the [place] Food and Drug Administration (FDA). This test was developed by [employer], [place], [place]. The performance characteristics of this test were validated by [facility]. The results are not intended to be used as the sole means for clinical diagnosis or patient management decisions. [facility] is authorized under Clinical Laboratory Improvement [...] for this test is supported by the Senior Web Developer of Health and Human Service's declaration that [...] Performed By: #### C VDTBH #### [facility] [address] [place] [address] Dr. Shabnam Rae ER URINE PROFILEon 2 Bilirubin Ql (U) Negative Normal NEGATIVE [facility] Comment on above: Performed By: #### P SASC #### [facility] [address] [place] [address] Dr. Shabnam Rae Clarity (U) CLEAR Normal CLEAR [facility] Comment on above: Performed By: #### P SASC #### [facility] [address] [place] [address] Dr. Shabnam Rae Color (U) YELLOW Normal YELLOW [facility] Comment on above: Performed By: #### P SASC #### [facility] [address] [place] [address] Dr. Shabnam Rae ERUAHD A micrscopic examination will be performed if indicated. Normal [facility] Comment on above: Performed By: #### P SASC #### [facility] [address] [address] [address] Shabnam Rae Glucose Ql (U) Negative Normal NEGATIVE [facility] Comment on above: Performed By: #### P SASC #### [facility] [address] [address] [address] Shabnam Rae Hemoglobin Ql (U) Negative Normal NEGATIVE [facility] Comment on above: Performed By: #### P SASC #### [facility] [address] [address] [address] Shabnam Rae Ketones Ql (U) Negative Normal NEGATIVE [facility] Comment on above: Performed By: #### P SASC #### [facility] [address] [address] [address] Shabnam Rae LEUKOCYTES Negative Normal NEGATIVE [facility] Comment on above: Performed By: #### P SASC #### [facility] [address] [address] [address] Shabnam Rae Nitrite Ql (U) Negative Normal NEGATIVE [facility] Comment on above: Performed By: #### P SASC #### [facility] [address] [address] [address] Shabnam Rae pH (U) 6.5 [pH] Normal 5-9 [facility] Comment on above: Performed By: #### P SASC #### [facility] [address] [place] [address] Dr. Shabnam Rae SPEC GRAVITY 1.010 Normal 1.005-<=1.025 [facility] Comment on above: Performed By: #### P SASC #### [facility] [address] [place] [address] Dr. Shabnam Rae UA PROTEIN Negative Normal NEGATIVE/ TRACE [facility] Comment on above: Performed By: #### P SASC #### [facility] [address] [place] [address] Dr. Shabnam Rae UR MICRO IND NOT INDICATED Normal [facility] Comment on above: Performed By: #### P SASC #### [facility] [address] [place] [address] Dr. Shabnam Rae Urobilinogen Qn (U) 0.2 {Sarai'U}/dL Normal 0.2 - 1. 0 [facility] Comment on above: Performed By: #### P SASC #### [facility] [address] [address] [address] Shabnam Rae LACTATE/LACTIC ACIDon 2021 Lactate [Moles/Vol] 1.0 mmol/L Normal 0.4-2.0 [facility] Comment on above: Performed By: #### P SASC #### [facility] [address] [address] [address] Shabnam Rae PROF CHEM 8 (BAS METB)on Anion gap [Moles/Vol] 10.0 mmol/L Normal [facility] Comment on above: Performed By: #### B MP #### [facility] [address] [place] [address] Dr. Shabnam Rae Calcium [Mass/Vol] 8.5 mg/dL Normal 8.5-10.1 [facility] Comment on above: Performed By: #### B MP #### [facility] [address] [address] [address] Shabnam Rae Chloride [Moles/Vol] 103 mmol/L Normal 98-107 [facility] Comment on above: Performed By: #### B MP #### [facility] [address] [place] [address] Dr. Shabnam Rae CO2 [Moles/Vol] 29.2 mmol/L Normal 21.0-32.0 [facility] Comment on above: Performed By: #### B MP #### [facility] [address] [place] [address] Dr. Shabnam Rae Creatinine [Mass/Vol] 1.25 mg/dL Normal 0.70-1.30 [facility] Comment on above: Performed By: #### B MP #### [facility] [address] [address] [address] Shabnam Rae EGFR-AF PANAMANIAN >60 Normal >=60 [facility] Comment on above: Performed By: #### B MP #### [facility] [address] [address] [address] Shabnam Rae EGFR-NON AF PANAMANIAN >60 Normal >=60 [facility] Comment on above: Performed By: #### B MP #### [facility] [address] [address] [address] Shabnam Rae Glucose [Mass/Vol] 132 mg/dL Critically high 74-106 [facility] Comment on above: Performed By: #### B MP #### [facility] [address] [address] [address] Shabnam Rae Potassium [Moles/Vol] 3.2 mmol/L Critically low 3.5-5.1 [facility] Comment on above: Performed By: #### B MP #### [facility] [address] [place] [address] Dr. Shabnam Rae Sodium [Moles/Vol] 139 mmol/L Normal 136-145 [facility] Comment on above: Performed By: #### B MP #### [facility] [address] [address] [address] Shabnam Rae Urea nitrogen [Mass/Vol] 19.0 mg/dL Critically high 7.0-18.0 [facility] Comment on above: Performed By: #### B MP #### [facility] [address] [place] [address] Dr. Shabnam Rae Urea nitrogen/Creatinine [Mass ratio] 15.2 mg/mg Normal [facility] Comment on above: Performed By: #### B MP #### [facility] [address] [place] [address] Dr. Shabnam Rae CERVICAL SPINE 2 OR 3 [facility] 07-06-2019 CERVICAL SPINE 2 OR 3 [facility] Department of Radiology [address] [place] [id number] Patient Name: MATTY GARCES : 1970 [...] findings. Electronically signed by:Bernice Hoyt. Transcribed by: [email or web address], User Resident: RADHA CHIN Electronically Signed by: BERNICE HOYT @ 07/06/2019 08:52 PM I personally read this/these film(s) with this resident Normal [facility] Comment on above: Order Comment: , STA T READ , STAT READ , , , Ordering Provider - LUCIANO VIEIRA MD , CERVICAL SPINE 2 OR 3 [facility] 04-06-2019 CERVICAL SPINE 2 OR 3 [facility] Department of Radiology [address] [place] [id number] Patient Name: MATTY GARCES : 1970 [...] FALLS Exam: CERVICAL SPINE 2 OR 3 [facility] CERVICAL SPINE 2 OR 3 [facility] 04/06/2019 7:28 AM EDT SIGNS AND [...] study. Electronically signed by:Bernice Hoyt. Transcribed by: [email or web address], User Resident: Electronically Signed by: BERNICE HOYT @ 04/06/2019 04:40 PM Normal [facility] Comment on above: Order Comment: AP/LA T, ODONTOID PLEASE DO SWIMMER'S VIEW FOLLOW UP HARDWARE AND ALIGNMENT, S/P ACDF, RECENT FALLS CERVICAL SPINE 2 OR 3 [facility] 02-17-2019 CERVICAL SPINE 2 OR 3 [facility] Department of Radiology [address] [place] [id number] Patient Name: MATTY GARCES : 1970 [...] findings. Electronically signed by:Bella King. Transcribed by: [email or web address], User Resident: EMILE TINAJERO Electronically Signed by: BELLA KING @ 02/20/2019 11:53 AM I personally read this/these film(s) with this resident Normal [facility] Comment on above: Order Comment: C-SPI NE 2 OR 3 VIEW POSTOP, EVALUATION HARDWARE AN ALIGNMENT BASIC METABOLIC PANELon 05-2 Calcium [Mass/Vol] 9.2 mg/dL Normal 8.6-10.3 [facility] Comment on above: Order Comment: No: D o not add to previous draw Performed By: #### 5 0103 #### [facility] [address] [place] [address], [place] Chloride [Moles/Vol] 101 mmol/L Normal 98-107 [facility] Comment on above: Order Comment: No: D o not add to previous draw Performed By: #### 5 0103 #### [facility] [address] [place] [address], [place] CO2 [Moles/Vol] 26 mmol/L Normal 21-31 [facility] Comment on above: Order Comment: No: D o not add to previous draw Performed By: #### 5 0103 #### [facility] [address] [place] [address], [place] Creatinine [Mass/Vol] 1.02 mg/dL Normal 0.70-1.30 [facility] Comment on above: Order Comment: No: D o not add to previous draw Performed By: #### 5 0103 #### [facility] [address] [place] [address], [place] GFR/1.73 sq M predicted among blacks MDRD (S/P/Bld) [Vol rate/Area] mL/min/{1.73_m2} Normal >60 [facility] Comment on above: Order Comment: No: D o not add to previous draw Performed By: #### 5 0103 #### [facility] [address] [place] [address], [place] GFR/1.73 sq M predicted among non-blacks MDRD (S/P/Bld) [Vol rate/Area] mL/min/{1.73_m2} Normal >60 [facility] Comment on above: Order Comment: No: D o not add to previous draw Performed By: #### 5 0103 #### [facility] [address] [place] [address], [place] Glucose [Mass/Vol] 124 mg/dL High 70-100 [facility] Comment on above: Order Comment: No: D o not add to previous draw Performed By: #### 5 0103 #### [facility] [address] [place] [address], [place] Potassium [Moles/Vol] 3.9 mmol/L Normal 3.5-5.1 [facility] Comment on above: Order Comment: No: D o not add to previous draw Performed By: #### 5 0103 #### [facility] [address] [place] [address], [place] Sodium [Moles/Vol] 137 mmol/L Normal 136-145 [facility] Comment on above: Order Comment: No: D o not add to previous draw Performed By: #### 5 0103 #### [facility] [address] [place] [address], [facility] Urea nitrogen [Mass/Vol] 15 mg/dL Normal 7-25 [facility] Comment on above: Order Comment: No: D o not add to previous draw Performed By: #### 5 3 #### [facility] [address] [place] [address], [facility] CBC COMPLETE BLOOD COUNTon 0 - Erythrocyte distribution width (RBC) [Ratio] 13.9 % Normal 11.5-15.0 [facility] Comment on above: Order Comment: No: D o not add to previous draw Performed By: #### 5 0103 #### [facility] [address] [place] [address], [facility] Hematocrit (Bld) [Volume fraction] 50.0 % Normal 39.0-50.0 [facility] Comment on above: Order Comment: No: D o not add to previous draw Performed By: #### 5 3 #### [facility] [address] [place] [id number], [facility] Hemoglobin (Bld) [Mass/Vol] 16.0 g/dL Normal 13.0-17.0 [facility] Comment on above: Order Comment: No: D o not add to previous draw Performed By: #### 5 0103 #### [facility] [address] [place] [id number], [facility] MCH (RBC) [Entitic mass] 27.5 pg Normal 27.0-33.0 [facility] Comment on above: Order Comment: No: D o not add to previous draw Performed By: #### 5 0103 #### [facility] [address] [place] [address], [facility] MCHC (RBC) [Mass/Vol] 32.0 g/dL Normal 32.0-35.0 [facility] Comment on above: Order Comment: No: D o not add to previous draw Performed By: #### 5 0103 #### [facility] [address] [facility] [place] [address], [facility] MCV (RBC) [Entitic vol] 85.9 fL Normal 82.0-98.0 [facility] Comment on above: Order Comment: No: D o not add to previous draw Performed By: #### 5 0103 #### [facility] [address] [place] [address], [facility] Nucleated RBC/100 WBC (Bld) [Ratio] 0 % Normal 0-0 [facility] Comment on above: Order Comment: No: D o not add to previous draw Performed By: #### 5 0103 #### [facility] [address] [facility] [place] [place] [address], [facility] PLAT CNT 249 10*3/uL Normal 150-400 [facility] Comment on above: Order Comment: No: D o not add to previous draw Performed By: #### 5 3 #### [facility] [address] [place] [address], [facility] RBC (Bld) [#/Vol] 5.82 10*6/uL High 4.20-5.70 [facility] Comment on above: Order Comment: No: D o not add to previous draw Performed By: #### 5 0103 #### [facility] [address] [place] [address], [facility] WBC (Bld) [#/Vol] 15.85 10*3/uL High 4.00-10.60 [facility] Comment on above: Order Comment: No: D o not add to previous draw Performed By: #### 5 0103 #### [facility] [address] Operative Reporton 9 Operative Report MR#: [id number] [facility] Pt. Name: Matty Garces Room #: [id number] Discharge Date: Birthdate: 1970 OPERATIVE REPORT DATE OF SURGERY: 01/30/2019 SURGEON: Luciano Vieira M.D. 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 POSTOPERATIVE DIAGNOSIS: Failed instrumentation at C6-7 on the right. SLOTTER OPERATOR HELPER: ADENIKE Lugo. ANESTHESIA: Endotracheal, Hogan. PROCEDURES: Redo [...] Vieira M.D. Date Trans: 01/31/2019 02:31 Eze/sasha [id number] cc: Venus Mendez M.D. [address] [facility] [address] Normal [facility] CERVICAL SPINE 2 OR 3 [facility] 01-30-2019 CERVICAL SPINE 2 OR 3 [facility] Department of Radiology [address] [place] [id number] Patient Name: MATTY GARCES : 1970 [...] documentation Electronically signed by:Justus Montano. Transcribed by: [email or web address], User Resident: Electronically Signed by: JUSTUS MONTANO @ 01/30/2019 04:18 PM Normal [facility] Comment on above: Order Comment: C6-7 ACDF POC GLUCOSE LABon 01-30-2019 Glucose [Mass/Vol] 106 mg/dL High 70-100 [facility] Comment on above: Performed By: #### 5 0103 #### [facility] [address] [facility]. [address] *MRSA/MSSA DNA NASALon 01-23 *MRSA/MSSA DNA NASAL Clinical Report: (D ) Specimen: NASAL SWAB Collected: 01/23/2019 15:02 Status: Final Last Updated: 01/23/2019 20:14 MSSA DNA (Final) Methicillin Susceptible Staphylococcus aureus DNA Detected MRSA DNA (Final) No Methicillin Resistant Staphylococcus aureus DNA Detected Normal [facility] Comment on above: Performed By: #### 5 0103 #### [facility] [address] [facility]. [address] APTTon 01-23-2019 aPTT Coag (Bld) [Time] 35.4 s High 25.0-35.0 [facility] Comment on above: Result Comment: ALL [...] THIS PURPOSE. Performed By: #### 5 7307, 40206 #### [facility] [address] [facility]. [address] BASIC METABOLIC PANELon 01-11 Calcium [Mass/Vol] 9.5 mg/dL Normal 8.6-10.3 [facility] Comment on above: Performed By: #### 5 7307, 11116 #### [facility] [address] [facility] [place] [place] [address], [facility] Chloride [Moles/Vol] 101 mmol/L Normal 98-107 [facility] Comment on above: Performed By: #### 5 7307, 06067 #### [facility] [address] [facility] [place] [address], [facility] CO2 [Moles/Vol] 29 mmol/L Normal 21-31 [facility] Comment on above: Performed By: #### 5 73, 19842 #### [facility] [address] [place] [address], [place] Creatinine [Mass/Vol] 1.08 mg/dL Normal 0.70-1.30 [facility] Comment on above: Performed By: #### 5 73, 87328 #### [facility] [address] [place] [address], [place] GFR/1.73 sq M predicted among blacks MDRD (S/P/Bld) [Vol rate/Area] mL/min/{1.73_m2} Normal >60 [facility] Comment on above: Performed By: #### 5 7306, 65471 #### [facility] [address] [place] [address], [place] GFR/1.73 sq M predicted among non-blacks MDRD (S/P/Bld) [Vol rate/Area] mL/min/{1.73_m2} Normal >60 [facility] Comment on above: Performed By: #### 5 7306, 41620 #### [facility] [address] [place] [address], [place] Glucose [Mass/Vol] 87 mg/dL Normal 70-100 [facility] Comment on above: Performed By: #### 5 73, 62431 #### [facility] [address] [place] [address], [place] Potassium [Moles/Vol] 4.0 mmol/L Normal 3.5-5.1 [facility] Comment on above: Performed By: #### 5 7307, 13460 #### [facility] [address] [place] [address], [place] Sodium [Moles/Vol] 137 mmol/L Normal 136-145 [facility] Comment on above: Performed By: #### 5 7307, 42415 #### [facility] [address] Urea nitrogen [Mass/Vol] 12 mg/dL Normal 7-25 [facility] Comment on above: Performed By: #### 5 73, 93526 #### [facility] [address] CBC W/DIFFon 01-23-2019 ABS BASOPHILS 0.1 10*3/uL Normal 0.0-0.2 [facility] Comment on above: Performed By: #### 5 Al, 37652 #### [facility] [address] ABS IMM GRANS 0.0 10*3/uL Normal 0.0-0.2 [facility] Comment on above: Performed By: #### 5 Al, 86903 #### [facility] [address] ABS NEUTROPHILS 5.3 10*3/uL Normal 1.6-7.6 The [facility] Comment on above: Performed By: #### 5 Al, 44792 #### [facility] [address] Basophils/100 WBC (Bld) 0.9 % Normal 0.0-1.0 [facility] Comment on above: Performed By: #### 5 Al, 92949 #### [facility] [address] Eosinophils (Bld) [#/Vol] 0.2 10*3/uL Normal 0.0-0.5 [facility] Comment on above: Performed By: #### 5 7306, 71889 #### [facility] [address] [place] [address], [facility] Eosinophils/100 WBC (Bld) 2.3 % Normal 0.0-6.0 [facility] Comment on above: Performed By: #### 5 7306, 71022 #### [facility] [address] Erythrocyte distribution width (RBC) [Ratio] 13.8 % Normal 11.5-15.0 [facility] Comment on above: Performed By: #### 5 7306, 41019 #### [facility] [address] [place] [address], [facility] Hematocrit (Bld) [Volume fraction] 49.6 % Normal 39.0-50.0 [facility] Comment on above: Performed By: #### 5 7306, 98040 #### [facility] [address] [facility] [place] [address], [facility] Hemoglobin (Bld) [Mass/Vol] 16.4 g/dL Normal 13.0-17.0 [facility] Comment on above: Performed By: #### 5 7306, 74893 #### [facility] [address] [facility] [place] [address], [facility] IMMATURE GRANS 0.5 % Normal 0.0-1.0 [facility] Comment on above: Performed By: #### 5 7306, 69742 #### [facility] [address] [facility] [place] [address], [facility] Lymphocytes (Bld) [#/Vol] 1.2 10*3/uL Normal 1.2-4.0 [facility] Comment on above: Performed By: #### 5 7306, 93199 #### [facility] [address] [place] [address], [facility] Lymphocytes/100 WBC (Bld) 16.6 % Low 20.0-45.0 [facility] Comment on above: Performed By: #### 5 7306, 75331 #### [facility] [address] [place] [address], [facility] MCH (RBC) [Entitic mass] 27.8 pg Normal 27.0-33.0 [facility] Comment on above: Performed By: #### 5 7306, 87823 #### [facility] [address] [place] [address], [facility] MCHC (RBC) [Mass/Vol] 33.1 g/dL Normal 32.0-35.0 [facility] Comment on above: Performed By: #### 5 7306, 45475 #### [facility] [address] [place] [address], [facility] MCV (RBC) [Entitic vol] 84.2 fL Normal 82.0-98.0 [facility] Comment on above: Performed By: #### 5 7306, 61511 #### [facility] [address] [place] [address], [facility] Monocytes (Bld) [#/Vol] 0.7 10*3/uL Normal 0.1-1.0 [facility] Comment on above: Performed By: #### 5 7306, 90900 #### [facility] [address] [place] [address], [facility] MONOS 9.4 % Normal 5.0-12.0 [facility] Comment on above: Performed By: #### 5 7306, 85345 #### [facility] [address] [place] [address], [facility] Neutrophils/100 WBC (Bld) 70.3 % Normal 40.0-72.0 [facility] Comment on above: Performed By: #### 5 7306, 31514 #### [facility] [address] [facility] [place] [address], [facility] Nucleated RBC/100 WBC (Bld) [Ratio] 0 % Normal 0-0 [facility] Comment on above: Performed By: #### 5 7306, 42107 #### [facility] [address] [place] [address], [place] PLAT CNT 235 10*3/uL Normal 150-400 The [facility] Comment on above: Performed By: #### 5 7307, 46764 #### [facility] [address] [facility]. [address] RBC (Bld) [#/Vol] 5.89 10*6/uL High 4.20-5.70 The [facility] Comment on above: Performed By: #### 5 7307, 16339 #### [facility] [address] [facility] WBC (Bld) [#/Vol] 7.48 10*3/uL Normal 4.00-10.60 [facility] Comment on above: Performed By: #### 5 7307, 78683 #### [facility] [address] [facility]. [address] PROTHROMBIN TIMEon 9 INR Coag (PPP) [Relative time] 1.12 {INR} Normal 0.91-1.16 [facility] Comment on above: Result Comment: ACCC [...] CHEST 1995;108:231S-246S. Performed By: #### 5 7307, 12152 #### [facility] [address] [facility]. [address] PT Coag (PPP) [Time] 14.4 s Normal 12.3-14.8 [facility] Comment on above: Result Comment: ALL RESULTS MUST BE INTERPRETED WITH RESPECT TO BLOOD DRAWING ARTIFACT OR DILUTION ERROR OF ANTICOAGULANT AT THE TIME OF SAMPLING. Performed By: #### 5 7307, 62493 #### [facility] [address] [facility]. [address] TYPE AND SCREENon 01-23-2019 ABO INTERPRETATION A Normal [facility] Comment on above: Performed By: #### 5 7307, 22000 #### [facility] [address] [facility] [place] [place] [address], [facility] RH INTERPRETATION Positive Normal The [facility] Comment on above: Performed By: #### 5 7307, 52943 #### [facility] [address] [facility]. [address] 3D CERVICAL SPINE WO CONT RASTon 01-12-2019 CT 3D CERVICAL SPINE WO CONTRAST [facility] Department of Radiology [address] [place] [id number] Patient Name: MATTY GARCES : 1970 Sex: M Age: Race: White Pt. Location: Patient Status: D Ordered Date: 01/10/2019 2:15:00 PM Completed Date: 01/12/2019 10:32 AM Requesting Provider: LUCIANO VIEIRA Attending Provider: LUCIANO VIEIRA Report Copy To: VENUS MENDEZ Signs & Symptoms: M48.02 Spinal stenosis, cervical region I10 History: [place] para auth # [id number] 01/10/19-02/09/19 [id number] *er Comments: Exam: CT 3D CERVICAL SPINE [...] incomplete Electronically signed by:Ten Garland. Transcribed by: [email or web address], User Resident: Electronically Signed by: TEN GARLAND @ 01/13/2019 09:18 AM Normal [facility] CERVICAL SPINE 2 OR 3 [facility] 01-05-2019 CERVICAL SPINE 2 OR 3 S [facility] Department of Radiology [address] [place] [phone] Patient Name: MATTY GARCES : 1970 [...] , Exam: CERVICAL SPINE 2 OR 3 [facility] CERVICAL SPINE 2 OR 3 [facility] 01/05/2019 9:06 AM EDT SIGNS AND [...] findings. Electronically signed by:Ten Garland. Transcribed by: [email or web address], User Resident: SHELLY DELA CRUZ Electronically Signed by: TEN GARLAND @ 01/05/2019 12:37 PM I personally read this/these film(s) with this resident Normal [facility] Comment on above: Order Comment: , , = ========= , Ordering Provider - LUCIANO VIEIRA MD , CERVICAL SPINE 2 OR 3 [facility] 08-30-2018 CERVICAL SPINE 2 OR 3 [facility] Department of Radiology [address] [place] [phone] Patient Name: MATTY GARCES : 1970 Sex: M Age: Race: White Pt. Location: Patient Status: O Ordered Date: 08/30/2018 9:35:00 AM Completed Date: 08/30/2018 09:43 AM Requesting Provider: LUCIANO VIEIRA Attending Provider: LUCIANO VIEIRA Report Copy To: VENUS MENDEZ Signs & Symptoms: M50.90 Cervical disc disorder, unsp, unspecified cervical region I10 History: [place] Comments: , POST OP XRAY AP/LAT ONLY [...] findings. Electronically signed by:Bella King. Transcribed by: [email or web address], User Resident: RYAN HEAD Electronically Signed by: BELLA KING @ 08/30/2018 05:45 PM I personally read this/these film(s) with this resident Normal [facility] Comment on above: Order Comment: , POS T OP XRAY AP/LAT ONLY , POST OP XRAY AP/LAT ONLY , , , Ordering Provider - LUCIANO VIEIRA MD , Operative Reporton 8 Operative Report MR#: [id number] I [facility] Pt. Name: Matty Garces Room #: [id number] Discharge Date: Birthdate: 1970 OPERATIVE REPORT DATE OF SURGERY: 08/17/2018 SURGEON: Luciano Vieira M.D. PREOPERATIVE DIAGNOSIS: Herniated cervical disk at C6-7. POSTOPERATIVE DIAGNOSIS: Herniated cervical disk at C6-7. SLOTTER OPERATOR HELPER: ADENIKE Larios. ANESTHESIA: Endotracheal, Braida. PROCEDURE: Anterior [...] Vieira M.D. Date Trans: 08/17/2018 11:25 P/sasha [id number] cc: Venus Mendez M.D. [address], [facility] Eze [facility] [phone] Normal [facility] CERVICAL SPINE 2 OR 3 [facility] 08-17-2018 CERVICAL SPINE 2 OR 3 [facility] Department of Radiology [address] [place] [phone] Patient Name: MATTY GARCES : 1970 [...] findings. Electronically signed by:Bernice Hoyt. Transcribed by: [email or web address], User Resident: EMILE TINAJERO Electronically Signed by: BERNICE HOYT @ 08/18/2018 01:06 PM I personally read this/these film(s) with this resident Normal [facility] Comment on above: Order Comment: C6-7 ACDF with POC GLUCOSE LABon 08-17-2018 Glucose [Mass/Vol] 113 mg/dL High 70-100 [facility] Comment on above: Performed By: #### 8 5499 #### [facility] [address] [place] [address], [facility] RBC'S 2 UNITSon 08-17-2018 CROSSMATCH INTERP 1 COMP Normal [facility] Comment on above: Performed By: #### 8 6002 #### [facility] [address] [place] [address], [facility] CROSSMATCH INTERP 2 COMP Normal [facility] Comment on above: Performed By: #### 8 6002 #### [facility] [address] [place] [address], [facility] PRODUCT CODE 1 E0336 Normal [facility] Comment on above: Performed By: #### 8 6002 #### [facility] [address] [place] [address], [facility] PRODUCT CODE 2 E0336 Normal [facility] Comment on above: Performed By: #### 8 6002 #### [facility] [address] [place] [address], [facility] PRODUCT STATUS 1 RE Normal [facility] Comment on above: Result Comment: Resu lt changed by IF on 08/20/2018 07:48. The previous value was XM. Performed By: #### 8 6002 #### [facility] [address] [place] [address], [facility] PRODUCT STATUS 2 RE Normal [facility] Comment on above: Result Comment: Resu lt changed by IF on 08/20/2018 07:48. The previous value was XM. Performed By: #### 8 6002 #### [facility] [address] UNIT ABO 1 A Normal [facility] Comment on above: Performed By: #### 8 6002 #### [facility] [address] [facility]. [address] UNIT ABO 2 A Normal [facility] Comment on above: Performed By: #### 8 6002 #### [facility] [address] UNIT ID 1 [id number] Normal [facility] Comment on above: Performed By: #### 8 6002 #### [facility] [address] [facility]. [address] UNIT ID 2 [id number] Normal [facility] Comment on above: Performed By: #### 8 6002 #### [facility] [address] [facility]. [address] UNIT RH 1 Positive Normal [facility] Comment on above: Performed By: #### 8 6002 #### [facility] [address] [facility]. [address] UNIT RH 2 Positive Normal [facility] Comment on above: Performed By: #### 8 6002 #### [facility] [address] *MRSA/MSSA CULTUREon 018 *MRSA/MSSA CULTURE Clinical Report: (D) Specimen: NASAL SWAB Collected: 08/02/2018 12:37 Status: Final Last Updated: 08/03/2018 14:26 ISO (Final) No Methicillin Resistant Staphylococcus aureus Isolated (MRSA) ISO (Final) Methicillin Sensitive Staphylococcus aureus (MSSA) Isolated Normal [facility] Comment on above: Performed By: #### 3 1302 #### [facility] [address] APTTon 08-02-2018 aPTT Coag (Bld) [Time] 31.2 s Normal 25.0-35.0 [facility] Comment on above: Result Comment: ALL [...] THIS PURPOSE. Performed By: #### 5 7307, 71432 #### [facility] [address] [place] [address], [facility] BASIC METABOLIC PANELon 11-2 Calcium [Mass/Vol] 9.4 mg/dL Normal 8.6-10.3 [facility] Comment on above: Performed By: #### 0 0071 #### [facility] [address] [place] [address], [facility] Chloride [Moles/Vol] 103 mmol/L Normal 98-107 [facility] Comment on above: Performed By: #### 0 0071 #### [facility] [address] [place] [address], [facility] CO2 [Moles/Vol] 29 mmol/L Normal 21-31 [facility] Comment on above: Performed By: #### 0 0071 #### [facility] [address] [place] [address], [facility] Creatinine [Mass/Vol] 1.06 mg/dL Normal 0.70-1.30 [facility] Comment on above: Performed By: #### 0 0071 #### [facility] [address] [place] [address], [facility] GFR/1.73 sq M predicted among blacks MDRD (S/P/Bld) [Vol rate/Area] mL/min/{1.73_m2} Normal >60 [facility] Comment on above: Performed By: #### 0 0071 #### [facility] [address] [place] [address], [facility] GFR/1.73 sq M predicted among non-blacks MDRD (S/P/Bld) [Vol rate/Area] mL/min/{1.73_m2} Normal >60 [facility] Comment on above: Performed By: #### 0 0071 #### [facility] [address] [place] [address], [facility] Glucose [Mass/Vol] 84 mg/dL Normal 70-100 [facility] Comment on above: Performed By: #### 0 0071 #### [facility] [address] [place] [address], [facility] Potassium [Moles/Vol] 4.0 mmol/L Normal 3.5-5.1 [facility] Comment on above: Performed By: #### 0 0071 #### [facility] [address] Sodium [Moles/Vol] 140 mmol/L Normal 136-145 [facility] Comment on above: Performed By: #### 0 0071 #### [facility] [address] Urea nitrogen [Mass/Vol] 20 mg/dL Normal 7-25 [facility] Comment on above: Performed By: #### 0 0071 #### [facility] [address] CBC W/DIFFon 08-02-2018 ABS BASOPHILS 0.1 10*3/uL Normal 0.0-0.2 [facility] Comment on above: Performed By: #### 5 3 #### [facility] [address] [place] [address], [facility] ABS IMM GRANS 0.1 10*3/uL Normal 0.0-0.2 [facility] Comment on above: Performed By: #### 5 3 #### [facility] [address] [place] [address], [facility] ABS NEUTROPHILS 4.2 10*3/uL Normal 1.6-7.6 [facility] Comment on above: Performed By: #### 5 102 #### [facility] [address] [place] [address], [facility] Basophils/100 WBC (Bld) 1.3 % High 0.0-1.0 [facility] Comment on above: Performed By: #### 102 #### [facility] [address] [facility] [place] [place] [address], [facility] Eosinophils (Bld) [#/Vol] 0.1 10*3/uL Normal 0.0-0.5 [facility] Comment on above: Performed By: #### 102 #### [facility] [address] [facility] [address], [facility] Eosinophils/100 WBC (Bld) 2.0 % Normal 0.0-6.0 [facility] Comment on above: Performed By: #### 102 #### [facility] [address] Erythrocyte distribution width (RBC) [Ratio] 13.6 % Normal 11.5-15.0 [facility] Comment on above: Performed By: #### 3 #### [facility] [address] [facility]. [address] Hematocrit (Bld) [Volume fraction] 44.3 % Normal 39.0-50.0 [facility] Comment on above: Performed By: #### 102 #### [facility] [address] [facility] [place] [place] [address], [facility] Hemoglobin (Bld) [Mass/Vol] 15.1 g/dL Normal 13.0-17.0 [facility] Comment on above: Performed By: #### 5 0103 #### [facility] [address] IMMATURE GRANS 1.1 % High 0.0-1.0 [facility] Comment on above: Performed By: #### 5 102 #### [facility] [address] [place] [address], [facility] Lymphocytes (Bld) [#/Vol] 1.2 10*3/uL Normal 1.2-4.0 [facility] Comment on above: Performed By: #### 102 #### [facility] [address] [place] [address], [facility] Lymphocytes/100 WBC (Bld) 18.3 % Low 20.0-45.0 [facility] Comment on above: Performed By: #### 102 #### [facility] [address] MCH (RBC) [Entitic mass] 29.0 pg Normal 27.0-33.0 [facility] Comment on above: Performed By: #### 5 102 #### [facility] [address] MCHC (RBC) [Mass/Vol] 34.1 g/dL Normal 32.0-35.0 [facility] Comment on above: Performed By: #### 5 3 #### [facility] [address] MCV (RBC) [Entitic vol] 85.0 fL Normal 82.0-98.0 [facility] Comment on above: Performed By: #### 5 3 #### [facility] [address] [place] [address], [facility] Monocytes (Bld) [#/Vol] 0.7 10*3/uL Normal 0.1-1.0 [facility] Comment on above: Performed By: #### 5 0103 #### [facility] [address] [facility] [place] [address], [facility] MONOS 11.1 % Normal 5.0-12.0 [facility] Comment on above: Performed By: #### 5 0103 #### [facility] [address] [place] [address], [facility] Neutrophils/100 WBC (Bld) 66.2 % Normal 40.0-72.0 [facility] Comment on above: Performed By: #### 5 3 #### [facility] [address] [facility] [place] [place] [address], [facility] Nucleated RBC/100 WBC (Bld) [Ratio] 0 % Normal 0-0 [facility] Comment on above: Performed By: #### 5 102 #### [facility] [address] [facility] [place] [place] [address], [facility] PLAT CNT 179 10*3/uL Normal 150-400 The [facility] Comment on above: Performed By: #### 5 0103 #### [facility] [address] [facility] [place] [place] [address], [facility] RBC (Bld) [#/Vol] 5.21 10*6/uL Normal 4.20-5.70 The [facility] Comment on above: Performed By: #### 5 102 #### [facility] [address] [facility] [place] [place] [address], [facility] WBC (Bld) [#/Vol] 6.39 10*3/uL Normal 4.00-10.60 [facility] Comment on above: Performed By: #### 5 3 #### [facility] [address] [place] [address], [facility] CERVICAL SPINE 4 OR 5 VIEWSo n 08-02-2018 CERVICAL SPINE 4 OR 5 VIEWS [facility] Department of Radiology [address] [place] [id number] Patient Name: MATTY GARCES : 1970 Sex: [...] findings. Electronically signed by:Bella King. Transcribed by: [email or web address], User Resident: EMILE TINAJERO Electronically Signed by: BELLA KING @ 08/03/2018 11:58 AM I personally read this/these film(s) with this resident Normal [facility] Comment on above: Order Comment: , PRE OP XRAY AP/LAT \EANDE\ FLEX/EX , PREOP XRAY AP/LAT \EANDE\ FLEX/EX , , , Ordering Provider - LUCIANO VIEIRA MD , PROTHROMBIN TIMEon 8 INR Coag (PPP) [Relative time] 1.15 {INR} Normal 0.91-1.16 [facility] Comment on above: Result Comment: ACCC [...] CHEST 1995;108:[id number]-246S. Performed By: #### 5 7307, [id number] #### [facility] [address] [place] [address], [place] PT Coag (PPP) [Time] 14.7 s Normal 12.3-14.8 [facility] Comment on above: Result Comment: ALL RESULTS MUST BE INTERPRETED WITH RESPECT TO BLOOD DRAWING ARTIFACT OR DILUTION ERROR OF ANTICOAGULANT AT THE TIME OF SAMPLING. Performed By: #### 5 7307, [id number] #### [facility] [address] [place] [address], [facility] TYPE AND SCREENon 08-02-2018 ABO INTERPRETATION A Normal [facility] Comment on above: Order Comment: 2 uni ts 2 units 2 units 2 units 2 units Performed By: #### 6 2586 #### [facility] [address] [place] [address], [place] RH INTERPRETATION Positive Normal The [facility] Comment on above: Order Comment: 2 uni ts 2 units 2 units 2 units 2 units Performed By: #### 6 2586 #### [facility] [address] [place] [address], [place] URINALYSIS REFLEXon 08-02-20 18 Appearance (U) CLEAR Normal CLEAR [facility] Comment on above: Performed By: #### 3 0965 #### [facility] [address] [place] [address], [place] Bilirubin [Mass/Vol] Negative Normal NEGATIVE [facility] Comment on above: Performed By: #### 3 0965 #### [facility] [address] [place] [address], [place] BLOOD Negative Normal NEGATIVE [facility] Comment on above: Performed By: #### 3 0965 #### [facility] [address] [place] [address], [place] Color (U) YELLOW Normal YELLOW [facility] Comment on above: Performed By: #### 3 0965 #### [facility] [address] [place] [address], [place] Glucose [Mass/Vol] 150 mg/dL Abnormal NEGATIVE The [facility] Comment on above: Performed By: #### 3 0965 #### [facility] [address] [place] [address], [facility] KETONE Negative Normal NEGATIVE [facility] Comment on above: Performed By: #### 3 0965 #### [facility] [address] [place] [address], [facility] [place] Negative Normal NEGATIVE [facility] Comment on above: Performed By: #### 3 0965 #### [facility] [address] [place] [address], [facility] MICRO NOT DONE negative chemical reactions unless requested in original order Normal [facility] Comment on above: Performed By: #### 3 0965 #### [facility] [address] [place] [address], [facility] Nitrite Ql (U) Negative Normal NEGATIVE The [facility] Comment on above: Performed By: #### 3 0965 #### [facility] [address] [place] [address], [facility] pH (Bld) 5.0 Normal 5.0-8.0 [facility] Comment on above: Performed By: #### 3 0965 #### [facility] [address] [place] [id number], [facility] Protein (U) [Mass/Vol] Negative Normal NEGATIVE [facility] Comment on above: Performed By: #### 3 0965 #### [facility] [address] [place] [address], [facility] SPEC GRAV 1.024 High 1.015-1.020 [facility] Comment on above: Performed By: #### 3 0965 #### [facility] [address] [place] [address], [facility] Vital Signs Date Time Vital Sign Value Performing Clinician Bijali litlamont 02-25-2022 10:30-0400 Blood Pressure Location Viola Lue [facility] [place] 02-25-2022 10:30-0400 Diastolic blood pressure 107 mm[Hg] [facility] 02-25-2022 10:30-0400 Heart rate 74 /min [facility] 02-25-2022 10:30-0400 Respiratory rate 16 /min Viola Lue [facility] [place] 02-25-2022 10:30-0400 Systolic blood pressure 157 mm[Hg] Viola Lue [facility] [place] Encounters Encounter Date Encounter Type Care Provider Facility Start: 01-10-2024 End: 01-11-2024 ambulatory VALENCIA Pate APLING Not Available Start: 01-03-2024 End: 01-03-2024 ambulatory Trey Vallejo Facility:[facility] Start: 01-03-2024 End: 01-03-2024 ambulatory DPM Trey Vallejo Work Phone: [facility] Work Phone: Start: 01-03-2024 End: 01-03-2024 Departed Referred DPM Trey Vallejo Work Phone: [facility] Start: 12-29-2023 End: 12-29-2023 ambulatory RUBÉN GEIGER Not Available Start: 11-29-2023 End: 11-30-2023 ambulatory Diallo Beauchamp MD Facility:[facility] Start: 10-18-2023 End: 10-19-2023 ambulatory Diallo Beauchamp MD Facility:[facility] Start: 09-27-2023 End: 09-27-2023 ambulatory RUBÉN GEIGER Not Available Start: 08-30-2023 End: 08-31-2023 ambulatory Diallo Beauchamp MD Facility:[facility] Start: 07-12-2023 End: 07-13-2023 ambulatory Diallo Beauchamp MD Facility:[facility] Start: 06-14-2023 End: 06-15-2023 ambulatory Kirkus Woo Beauchamp MD Facility:[facility] Start: 03-11-2023 End: 03-11-2023 ambulatory Rubén Geiger Facility:[facility] Start: 12-06-2022 End: 12-06-[address] VENUS MENDEZ . Facility:[facility] Start: 12-05-2022 Encounter for genera l adult medical examination without abnormal findings DR VENUS MENDEZ . [facility] Start: 12-01-2022 End: 12-02-2022 ambulatory [...] encounter procedure Viola Grullon [facility] Start: 01-04-2022 End: 01-05-[address] VENUS MENDEZ . Facility: Start: 01-30-2019 End: 02-01-2019 Evaluation and management of inpatient PROVIDER UNKNOWN Facility:[facility] Start: 08-17-2018 End: 08-18-2018 Patient encounter procedure PROVIDER UNKNOWN Facility:[facility] Procedures Date Procedure Procedure Detail Performing Clinician Start: 12-01-[address] FRANKLIN MENDEZ . Comment on above: Performed By: #### P [facility] #### [facility] [address] [place] [address] Dr. Shabnam Rae Start: 01-30-2019 FUSION CERV JT W INT BD FUS DEV, ANT APPR A COL, OPEN AZEDINE MED[facility] Start: 01-30-2019 REMOVAL OF INT FIX F ROM CERVCAL VERTEBRA, OPEN APPROACH AZ[facility]INE [facility] Start: 01-23-2019 Antibody screen PROVIDE R UNKNOWN Comment on above: Performed By: #### 5 7307, 85157 #### [facility] [address] Start: 08-17-2018 ANESTH SPINE CORD SURGERY [...] units Performed By: #### 6 2586 #### [facility] [address] [facility]. [address] Colonoscopy Viola Lue Hemorrhoids (disorder) Viola Lue Hernia of abdominal cavity (disorder) Viola Lue Tonsillectomy [employer] Payers Date Payer Category Payer Self-pay [id number] 2022 Medicaid [id number] 2022 Unknown 1970 Unknown [id number] 2.16.8 40.1.930005.3.579.2.647 1970 Unknown [id number] 2.16.8 40.1.447933.3.579.2.647 1970 Unknown [id number] 2.16.84 0.1.790189.3.579.2.593 1970 Unknown [id number] 2.16.84 0.1.219785.3.579.2.593 1970 Unknown [id number] 2.16.84 0.1.174783.3.579.2.593 1970 Unknown [id number] 2.16.84 0.1.035243.3.579.2.593 1970 Unknown [id number] 2.16.84 0.1.749287.3.579.2.593 1970 Unknown [id number] 2.16.84 0.1.678783.3.579.2.593 1970 Unknown [id number] 2.16. 840.1.366308.3.579.2.196 1970 Unknown [id number] 2.16. 840.1.080797.3.579.2.196 1970 Unknown [id number] 2.16. 840.1.410725.3.579.2.196 1970 Unknown [id number] 2.16. 840.1.548354.3.579.2.196 1970 Unknown [id number] 2.16. 840.1.151366.3.579.2.196 1970 Unknown [id number] 2.16.84 0.1.443835.3.579.2.1259 1970 Unknown [id number] 2.16.84 0.1.921439.3.579.2.1259 1970 Unknown [id number] 2.16.84 0.1.280798.3.579.2.1259 1970 Unknown [id number] 2.16.84 0.1.592638.3.579.2.1259 1960 Unknown [id number] Unknown [id number] Unknown [id number] 2.16.8 40.1.602965.3.579.2.531 Unknown [id number] 2.16.8 40.1.128701.3.579.2.531 Social History Date Type Detail Facility Tobacco smoking status No Smokin g Status Entered [facility] Sex Assigned At Male [facility] Start: 05-15-2018 Tobacco smoking stat us NHIS Ex-smoker (finding) [facility] Start: 1970 Sex Assigned At Male F [facility] Functional Status Date Assessment Result Facility 02-25-2022 Functional Status N/A [facility] Progress note 06-09-2023 Note Date & Type Note Facility 06-09-2023 Note [facility] Continue GDMT- Diuretic therapy Monitor daily weights, I&O, fluid restriction 1.5-2L/day, renal function and electrolytes- [facility] Clinical Note 03-26-2022 Note Date & [...] by: ALVINA CAICEDO Date: 2022-03-26 10:47 [facility] Discharge instructions 02-25-2022 Note Date & [...] Watch the hydrocele for any changes. Take hxub-otx-[id number] and prescription medicines only as told by [...] 02/17/2011 Document Revised: 09/10/2018 Document Reviewed: 09/10/2018 [employer] Patient Education 2020 [employer]. Follow Up Care 01/28/2022 10:36:35 With:Mitchel DELGADO, Viola Cohn, URL, URO Address: When: Unknown [facility] Evaluation + Plan note Note Date & Type Note Facility Evaluation + Plan note No data available for this section [facility] Evaluation note Note Date & Type Note Facility Evaluation note [facility] Progress note Note Date & Type Note Facility Progress note No data available for this section [facility] Summary Purpose Family History No Family History Records FoundNo Family History Records FoundNo Family History Records FoundNo Family History Records FoundNo Family History Records FoundNo Family History Records FoundNo Family History Records Found Advance Directives No Advanced Directives Records Found Advance Directive Response Recorded Date/ Time Advance Directives No May 12:42pm Hospital Course Note MR#: [id number] I [facility] Pt. Name: Matty Garces Admitted: 01/30/2019 [...] and content) DATE CREATED AUTHOR 07/19/2019 [facility] DATE CREATED AUTHOR AUTHOR'S ORGANIZ ATION 02/27/2022 [facility] DATE CREATED AUTHOR AUTHOR'S ORGANIZ ATION 12/08/2022 [facility] DATE CREATED AUTHOR AUTHOR'S ORGANIZ ATION 06/17/2023 [facility] DATE CREATED AUTHOR AUTHOR'S ORGANIZ ATION 12/03/2023 [facility] DATE CREATED AUTHOR AUTHOR'S ORGANIZ ATION 01/08/2024 [facility] DATE CREATED AUTHOR AUTHOR'S ORGANIZ ATION 01/15/2024 [facility] Care Team (unrecognized sect ion and content) [...] BE BASED ON THE PRIMARY CLINICAL RECORDS. [employer] provides no warranty or guarantee of the accuracy or completeness of information in this document.
--- NOTE | 2024-03-14 12:30 | ECG_ITS ---
The [facility] Test Date: 2024-03-14 Pat Name: MATTY WADE Department: Room: [facility] Gender: Male [employer] Hoister: : 1970 Requested By: VENUS JAEGER Order Number: [id number] Reading MD: EMILE WALSH Measurements Intervals [place] Rate: 74 P: 42 NM: 173 QRS: 18 QRSD: 98 T: 52 QT: 391 QTc: 434 Interpretive Statements SINUS RHYTHM NONSPECIFIC T-WAVE ABNORMALITY Compared to ECG 12/28/2023 09:59:58 T-wave abnormality now present Electronically Signed On 03-15-2024 6:48:11 EDT by EMILE WALSH
--- NOTE | 2024-03-14 12:30 | XR_ITS ---
The [address] [address] Patient Name: MATTY WADE MRN: [id number] date: 1970 Sex: M Assigned Patient Location: [place] Current Patient Location: [place] Accession/Order Number: [id number] Exam Date: 03/14/2024 13:10 Report Date: 03/14/2024 13:40 At the request of: VENUS JAEGER Procedure: XR chest 1V EXAMINATION: XR chest 1V HISTORY: Dyspnea COMPARISON: No relevant comparison available. FINDINGS: LUNGS: No significant pulmonary parenchymal abnormalities. VASCULATURE: No increased pulmonary vasculature. PLEURA: No pneumothorax, effusion, or pleural thickening. CARDIAC: No cardiomegaly or cardiac silhouette abnormality. MEDIASTINUM: No visible mass or adenopathy. BONES: Prior mechanical fusion of lower cervical spine. OTHER: Negative. XR/XR chest 1V IMPRESSION: 1. No acute cardiopulmonary process. Electronically authenticated by: SHY MISTRY Date: 03/14/2024 13:40
--- NOTE | 2024-03-14 12:38 | P.HP_ITS ---
HPI H&P: HPI History of Present Illness Chief complaint: LOWER EXTREMITY INJURY, ANKLE FRACTURE Narrative: Patient sustained a fall at home, no syncope, no chest pain, no prodromal symptoms, just fell, instant pain in his left ankle. Presented to emergency room found to have a displaced fibular fracture. Patient admitted for workup and treatment of same I saw patient up on the medical surgical floor, he was resting comfortably, obtaining an echo at that time. No other complaints from the time of the fall. No other recent complaints. Denies chest pain or shortness of breath. No URI symptoms no UTI symptoms Opioid HPI Opioid Management Most Recent Pain and Opioid Data: Last Pain Scale 3 03/15/24 05:39 Last Pain Assessment 03/15/24 06:00 Last MAR Pain Assessment 03/15/24 05:39 Last ORT Total Score 0 03/14/24 09:48 Last ORT Risk Category Low Risk 03/14/24 09:48 Review of Systems ROS Status of ROS 10 or more systems reviewed and unremark able except as noted in history and below PFSH PFS Medical History Prolonged emergence from general anesthesia ?T88.59XA - Other complications of anesthesia, initial encounter (ICD-10) Pain management contract signed ?Z02.89 - Encounter for other administrative examinations (ICD-10) Back pain ?M54.9 - Dorsalgia, unspecified (ICD-10) PTSD (post-traumatic stress disorder) ?F43.10 - Post-traumatic stress disorder, unspecified (ICD-10) Depression ?F32.A - Depression, unspecified (ICD-10) Dysphagia ?R13.10 - Dysphagia, unspecified (ICD-10) Uvulitis ?K12.2 - Cellulitis and abscess of mouth (ICD-10) Insomnia ?G47.00 - Insomnia, unspecified (ICD-10) Migraine ?G43.909 - Migraine, unspecified, not intractable, without status migrainosus (ICD-10) GERD (gastroesophageal reflux disease) ?K21.9 - Gastro-esophageal reflux disease without esophagitis (ICD-10) Dyspnea on exertion ?R06.09 - Other forms of dyspnea (ICD-10) Heart valve disorder ?I38 - Endocarditis, valve unspecified (ICD-10) Hypoglycemia ?E16.2 - Hypoglycemia, unspecified (ICD-10) Delayed recovery from anesthesia Chronic foot ulcer ?L97.509 - Non-pressure chronic ulcer of other part of unspecified foot with unspecified severity (ICD-10) 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 - Central serous chorioretinopathy, unspecified eye (ICD-10) Chronic pain ?G89.29 - Other chronic pain (ICD-10) Narcolepsy ?G47.419 - 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) Anxiety ?F41.9 - Anxiety disorder, unspecified (ICD-10) Upper back pain ?M54.9 - Dorsalgia, unspecified (ICD-10) Low back pain ?M54.50 - Low back pain, unspecified (ICD-10) TMJ (dislocation of temporomandibular joint) ?S03.00XA - Dislocation of jaw, unspecified side, initial encounter (ICD-10) Obesity ?E66.9 - Obesity, unspecified (ICD-10) Sleep apnea ?G47.30 - Sleep apnea, unspecified (ICD-10) Hypertension ?I10 - Essential (primary) hypertension (ICD-10) Surgical History H/O foot surgery ?Z98.890 - Other specified postprocedural states (ICD-10) H/O radiofrequency ablation (RFA) of nerve of lumbar spine ?Z98.890 - Other specified postprocedural states (ICD-10) History of fusion of cervical spine ?Z98.1 - Arthrodesis status (ICD-10) H/O inguinal hernia repair ?Z98.890 - Other specified postprocedural states (ICD-10) ?Z87.19 - Personal history of other diseases of the digestive system (ICD-10) H/O repair of rotator cuff ?Z98.890 - Other specified postprocedural states (ICD-10) History of uvulopalatopharyngoplasty ?Z98.890 - Other specified postprocedural states (ICD-10) Family History Other Family history of diabetes mellitus Family history of hypertension Family history of myocardial infarction Family history of stroke Social History (Updated 03/14/24 @ 09:47 by Agustina Hall) Within the past year, how often did you have a drink containing alcohol: monthly or less Smoking status: Never smoker Non-prescribed substance use: cannabis (any form) Previous occupational history: unemployed Highest level of school completed/degree received: high school graduate Are you now , , , , never or living with a partner: Little interest or pleasure in doing things: not at all Feeling down, depressed, or hopeless: not at all Feel stressed/tense/nervous/anxious/difficulty sleeping: not at all Do you think of yourself as: straight/heterosexual Gender Identity: male Meds Home Medications and Allergies Home Medications ?Medication ?Instructions ?Recorded ?Confirmed ?Type carvedilol 25 mg tablet 25 mg PO BID 06/14/23 03/14/24 History citalopram 20 mg tablet 20 mg PO DAILY 06/14/23 03/14/24 History clonazepam 0.5 mg tablet 0.5 mg PO DAILY 06/14/23 03/14/24 History doxazosin 8 mg tablet 8 mg PO DAILY 06/14/23 03/14/24 History furosemide 20 mg tablet 20 mg PO DAILY 06/14/23 03/14/24 History gabapentin 600 mg tablet 600 mg PO Q8H 06/14/23 03/14/24 History glycopyrrolate 1 mg tablet 1 mg PO BID 06/14/23 03/14/24 History hydroxyzine pamoate 25 mg capsule 25 mg PO QPM 06/14/23 03/14/24 History pantoprazole 40 mg tablet,delayed 40 mg PO DAILY 06/14/23 03/14/24 History release simvastatin 20 mg tablet 20 mg PO DAILY 06/14/23 03/14/24 History testosterone cypionate 100 mg/mL 100 mg subcut .EVERY 2 WEEKS 06/14/23 03/14/24 History intramuscular oil tizanidine 4 mg capsule 4 mg PO .EVERY NIGHT 06/14/23 03/14/24 History modafinil 200 mg tablet 200 mg PO BID 09/04/23 03/14/24 History potassium chloride 10 mEq 10 meq PO Q12H 09/04/23 03/14/24 History tablet,extended release amantadine HCl 100 mg tablet 100 mg PO BID 12/28/23 03/14/24 History cholecalciferol (vitamin D3) 125 5,000 unit PO DAILY 12/28/23 03/14/24 History mcg (5,000 unit) capsule melatonin 10 mg capsule 10 mg PO DAILY 12/28/23 03/14/24 History multivitamin (Daily Multi-Vitamin 1 tab PO DAILY 12/28/23 03/14/24 History tablet) sumatriptan succinate 100 mg tablet 100 mg PO Q2H PRN migraine headache 12/28/23 03/14/24 History aspirin 81 mg tablet,delayed 81 mg PO BID 30 days #60 tabs 01/03/24 03/14/24 Rx release (Adult Low Dose Aspirin) sodium chloride 0.65 % nasal spray 1 spray intranasal BID PRN dry 02/05/24 03/14/24 Rx aerosol nasal passages #15 mL Allergies Allergy/AdvReac Type Severity Reaction Status Date / Time No Known Drug Allergies Allergy Verified 03/14/24 07:30 Exam Constitutional Vital Signs, click to edit/add: Last Vital Signs Temp 97.5 F L 03/14/24 09:48 Pulse 83 03/14/24 09:48 Resp 18 03/14/24 09:48 BP 132/79 03/14/24 09:48 Pulse Ox 91 L 03/14/24 09:48 O2 Del Method Room Air 03/14/24 09:48 Documenting provider has reviewed patient's vital signs: yes Common normals: no apparent distress Chest Common normals: inspection of chest normal Respiratory Common normals: normal respiratory effort and no retractions Cardio Common normals: regular rate, regular rhythm and S2 normal heart sound GI Common normals: Normal to inspection, nondistended, normoactive bowel sounds present, soft to palpation and no hepatosplenomegaly Extremity Common normals: abnormal to inspection (Splint on left lower leg) Neuro Common normals: oriented x3 and CN's II-XII intact bilaterally Results Labs Labs: Short CBC 03/14/24 Range/Units 09:10 WBC 10.1 (4.0-11.0) 10^3/uL Hgb 15.3 (14.0-18.0) g/dL Hct 49.1 (42.0-54.0) % Plt Count 159 (150-450) 10^3/uL BMP 03/14/24 09:10 Sodium 138 Potassium 3.6 Chloride 99 Carbon Dioxide 31.1 BUN 12.0 Creatinine 1.04 Glucose 107 H Calcium 9.3 Assessment and Plan Assessment and Plan (1) Ankle fracture: Plan Status post fall with fibular fracture-plan per podiatry Narcolepsy-continue with home medications, discussed with Dr. Vallejo but may be spinal anesthesia but will leave that to anesthesia Diabetes mellitus-insulin sliding scale Low back pain-continue with home medications, also will have IV medication for pain control Hypertension-continue with home medications GERD-continue with home medications Admission status: Patient admitted for surgical repair of his fibular fracture. Observation status, patient likely to be discharged in a.m.
--- NOTE | 2024-03-14 12:46 | CA_ITS ---
Patient Name: MATTY WADE MR#: [id number] : 1970 Exam Date: 03/14/2024 Ordering Doctor: DR Caden Mendez . ECHOCARDIOGRAM REPORT PROCEDURE: CA ECHO LIMITED INDICATIONS: pre-op , hx pulm hypertension COMPARISON: None. DESCRIPTION: Limited ECHOCARDIOGRAM Real-time transthoracic echocardiography with 2D and M-mode performed. QUALITY: Technical quality was adequate. LEFT VENTRICLE: Normal chamber size. Moderate concentric left ventricular hypertrophy. Global left ventricular systolic function is at the lower limits of normal. LV EF: Visual estimation of left ventricular ejection fraction is 50-55%. DIASTOLIC: ATRIAL SEPTUM: LEFT ATRIUM: Normal chamber size. RIGHT ATRIUM: Mild dilatation. RIGHT VENTRICLE: Normal chamber size. Normal right ventricular systolic function. TRICUSPID VALVE: Normal mobility and thickness. No evidence of pulmonary hypertension. RVSP 15 mmHg MITRAL VALVE: Mildly thickened with normal mobility. AORTIC VALVE: Normal trileaflet appearance. Normal leaflet mobility. AORTIC ROOT: Normal diameter and appearance. PULMONIC VALVE: Not well visualized. PERICARDIUM: No evidence of pericardial effusion. IVC: Collapses with inspirations. Normal size. PLEURA: CONCLUSION: 1. Moderate concentric left ventricular hypertrophy with low normal systolic function. Estimated LVEF is 50 to 55%. 2. Normal right ventricular size and systolic function. 3. Normal right-sided pressures. 4. No pericardial effusion. 5. Limited study performed with limited Doppler interrogation as requested. Adult Echocardiography Procedure Report Left Ventricle LVEDD (3.7 - 5.6 cm): 4.73 cm LVESD (2.2 - 4.0 cm): 3.70 cm LVIVS thickness (0.6 - 1.2 cm): 1.40 cm LVPW thickness (0.5 - 1.0 cm): 1.41 cm LVOT Diameter 2.01 cm Left Ventricular Ejection Fraction: 50-55% Left Atrium LA Volume Index (2D A2C): 33.48 ml/m2 Left Atrium Systolic Dimension: 3.88 cm Mitral Valve Right Ventricle RV Internal Diastolic Dimension: 3.11 cm Aorta AO Root Diam: 3.04 cm Ascending Ao Diam: 2.85 cm Aortic Valve Tricuspid Valve Peak Velocity (Regurgitant Flow): 1.44 m/s, 1.73 m/s Pulmonic Valve Right Atrium Right Atrium Systolic Pressure: 51.29 ml, 51.29 ml Dictated by: Ankit Cabrera M.D. on 03/14/2024 at 15:09 Approved by: Ankit Cabrera M.D. on 03/14/2024 at 15:13
[2024-03-14 12:49] LABS: INR 1.16; Partial Thromboplastin Time 35.1 sec (22.3-36.2); Prothrombin Time 12.1 sec (9.0-11.6)
[2024-03-14 13:02] LABS: Magnesium 2.2 mg/dL (1.8-2.4); Troponin I High Sensitivity 8.6 pg/mL (4.0-76.1)
[2024-03-14 13:07] LABS: Alanine Aminotransferase 33 U/L (16-63); Albumin Level 3.4 g/dL (3.4-5.0); Alkaline Phosphatase 109 U/L (46-116); Aspartate Amino Transferase 20 U/L (15-37); Bilirubin Total 0.7 mg/dL (0.2-1.0); Total Protein 7.4 g/dL (6.4-8.2)
[2024-03-14] MEDS: GABAPENTIN 300 MG CAPSULE 600 MG PO ×2 (14:07→21:48)
[2024-03-14] MEDS: LACTATED RINGER'S SOLUTION 1,000 ML 50 ML IV (14:08)
--- NOTE | 2024-03-14 15:15 | SWNOTE1 ---
SW to see pt tomorrow after surgery for discharge needs.
--- NOTE | 2024-03-14 16:10 | PM.PODCN1 ---
HPI - Podiatry Data of Consult Patient: known to practice within the last 3 years Consult date: 03/14/24 Requesting physician: Caden Mendez MD Primary care provider: Caden Mendez MD Consult Narrative Reason for consult: Left ankle fracture Narrative: Patient is a 53-year-old male with PMH listed below who is well-known to our office and wound center for a number of years for management of recurrent diabetic foot ulcerations and associated surgical interventions in the past. Earlier this morning he fell while getting out of his chair and noticed immediate pain to his left ankle. Subsequently presented to the [facility] emergency department where he was discovered to have moderately displaced distal fibular fracture, was placed in posterior splint by emergency physician and subsequently was admitted pain control and anticipated surgical intervention. He was seen resting comfortably at bedside this evening, denied pain in the left ankle at time of visit. He denied under any other injuries during the fall. He denied any other acute lower extremity complaints and denied any constitutional symptoms at time of my visit. cc:: CC: Caden Mendez MD Review of Systems ROS Status of ROS 10 or more systems reviewed and unremarkable except as noted in history and below [facility] Medical History Prolonged emergence from general anesthesia ?T88.59XA - Other complications of anesthesia, initial encounter (ICD-10) Pain management contract signed ?Z02.89 - Encounter for other administrative examinations (ICD-10) Back pain ?M54.9 - Dorsalgia, unspecified (ICD-10) PTSD (post-traumatic stress disorder) ?F43.10 - Post-traumatic stress disorder, unspecified (ICD-10) Depression ?F32.A - Depression, unspecified (ICD-10) Dysphagia ?R13.10 - Dysphagia, unspecified (ICD-10) Uvulitis ?K12.2 - Cellulitis and abscess of mouth (ICD-10) Insomnia ?G47.00 - Insomnia, unspecified (ICD-10) Migraine ?G43.909 - Migraine, unspecified, not intractable, without status migrainosus (ICD-10) GERD (gastroesophageal reflux disease) ?K21.9 - Gastro-esophageal reflux disease without esophagitis (ICD-10) Dyspnea on exertion ?R06.09 - Other forms of dyspnea (ICD-10) Heart valve disorder ?I38 - Endocarditis, valve unspecified (ICD-10) Hypoglycemia ?E16.2 - Hypoglycemia, unspecified (ICD-10) Delayed recovery from anesthesia Chronic foot ulcer ?L97.509 - Non-pressure chronic ulcer of other part of unspecified foot with unspecified severity (ICD-10) 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 - Central serous chorioretinopathy, unspecified eye (ICD-10) Chronic pain ?G89.29 - Other chronic pain (ICD-10) Narcolepsy ?G47.419 - 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) Anxiety ?F41.9 - Anxiety disorder, unspecified (ICD-10) Upper back pain ?M54.9 - Dorsalgia, unspecified (ICD-10) Low back pain ?M54.50 - Low back pain, unspecified (ICD-10) TMJ (dislocation of temporomandibular joint) ?S03.00XA - Dislocation of jaw, unspecified side, initial encounter (ICD-10) Obesity ?E66.9 - Obesity, unspecified (ICD-10) Sleep apnea ?G47.30 - Sleep apnea, unspecified (ICD-10) Hypertension ?I10 - Essential (primary) hypertension (ICD-10) Surgical History H/O foot surgery ?Z98.890 - Other specified postprocedural states (ICD-10) H/O radiofrequency ablation (RFA) of nerve of lumbar spine ?Z98.890 - Other specified postprocedural states (ICD-10) History of fusion of cervical spine ?Z98.1 - Arthrodesis status (ICD-10) H/O inguinal hernia repair ?Z98.890 - Other specified postprocedural states (ICD-10) ?Z87.19 - Personal history of other diseases of the digestive system (ICD-10) H/O repair of rotator cuff ?Z98.890 - Other specified postprocedural states (ICD-10) History of uvulopalatopharyngoplasty ?Z98.890 - Other specified postprocedural states (ICD-10) Family History Other Family history of diabetes mellitus Family history of hypertension Family history of myocardial infarction Family history of stroke Social History (Updated 03/14/24 @ 09:47 by Agustina Hall) Within the past year, how often did you have a drink containing alcohol: monthly or less Smoking status: Never smoker Non-prescribed substance use: cannabis (any form) Previous occupational history: unemployed Highest level of school completed/degree received: high school graduate Are you now , , , , never or living with a partner: Little interest or pleasure in doing things: not at all Feeling down, depressed, or hopeless: not at all Feel stressed/tense/nervous/anxious/difficulty sleeping: not at all Do you think of yourself as: straight/heterosexual Gender Identity: male Exam Narrative Exam Narrative: LLE posterior splint CDI. CFT intact to digits. No erythema or edema proximal or distal to dressing. Active range of motion of digits present. Compartments soft compressible, no pain with calf or thigh compression. Constitutional Vital Signs, click to edit/add: Last Vital Signs Temp 98.1 F 03/14/24 14:15 Pulse 80 03/14/24 14:15 Resp 18 03/14/24 14:15 BP 141/88 03/14/24 14:15 Pulse Ox 93 L 03/14/24 16:05 O2 Del Method Room Air 03/14/24 16:05 Assessment and Plan Assessment and Plan (1) Closed fracture of left distal fibula: Assessment and Plan: Patient examined and evaluated. All findings discussed with patient and all questions answered to patient's satisfaction. Pertinent labs and imaging reviewed. X-ray demonstrates minimally displaced Cabrera B distal fibular fracture with lateral displacement of the talus and widening of the medial clear space. Small avulsion fragment noted to the posterior malleolus without significant joint involvement. Discussed case with emergency physician, he was neurovascularly intact and had no open ulcerations or skin tenting upon presentation. He was placed in a posterior splint at that time and will be left CDI due to unstable nature of this injury. Discussed nature of the injury with the patient, recommended surgical intervention to include open reduction internal fixation of left distal fibular fracture with syndesmotic repair Discussed anticipated postoperative recovery including at least 3 weeks of nonweightbearing in posterior splint or cast until the skin is healed, followed by an additional 6 to 8 weeks of offloading in walking cast. Discussed potential risk and complications including but not limited to blood clots, infection, wound healing complications, hypertrophic scarring, numbness tingling chronic pain, CRPS, painful hardware, nonunion/malunion and need for further surgery. Patient expressed understanding of the above and is agreeable to undergo surgical intervention. Surgery tentatively scheduled tomorrow, 03/15/2024 at 1 PM. N.p.o. after midnight tonight Strict nonweightbearing to the left lower extremity. Updated orders in the postoperative setting. Rest per primary, please call with questions or concerns. (2) Type 2 diabetes mellitus: (3) Peripheral neuropathy:
[2024-03-14] MEDS: HYDROXYZINE PAMOATE 25 MG CAPSULE PO (21:47)
[2024-03-14] MEDS: TIZANIDINE HCL 4 MG TABLET PO (21:47)
[2024-03-14] MEDS: POTASSIUM CHLORIDE 10 MEQ ER TABLET PO (21:47)
[2024-03-14] MEDS: MODAFINIL 100 MG TABLET 200 MG PO (21:47)
[2024-03-14] MEDS: AMANTADINE HCL 100 MG CAPSULE PO (21:47)
[2024-03-14] MEDS: ATORVASTATIN CALCIUM 10 MG TABLET PO (21:48)
[2024-03-14] MEDS: CARVEDILOL 25 MG TABLET PO (21:48)
[2024-03-14] MEDS: ASPIRIN 81 MG TABLET.DR PO (21:48)
[2024-03-15] VITALS (18 sets, daily range): BP systolic 103–128; BP diastolic 56–83; PULSE 61–83; TEMP 35.8–37; O2SAT 87–97
[2024-03-15] MEDS: OXYCODONE HCL 15 MG TABLET PO ×2 (04:21→20:59)
[2024-03-15] MEDS: ACETAMINOPHEN 500 MG TABLET 1000 MG PO (04:21)
[2024-03-15 05:27] LABS: Basophils Absolute Auto 0.1 10^3/uL (0.0-0.1); Basophils Percent Auto 0.6 % (0.2-2.0); Eosinophils Absolute Auto 0.3 10^3/uL (0.0-0.7); Eosinophils Percent Auto 2.9 % (0.9-7.0); Hematocrit 47.3 % (42.0-54.0); Hemoglobin 14.4 g/dL (14.0-18.0); Immature Granulocytes Abs Auto 0.11 10^3/uL (0.00-0.03); Immature Granulocytes Pct Auto 1.1 % (0.0-0.5); Lymphocytes Absolute Auto 0.7 10^3/uL (1.2-3.8); Lymphocytes Percent Auto 6.3 % (20.5-60.0); Mean Corpuscular HGB Conc 30.4 g/dL (29.9-35.2); Mean Corpuscular Hemoglobin 26.4 pg (25.9-34.0); Mean Corpuscular Volume 86.6 fL (80.0-94.0); Mean Platelet Volume 10.1 fL (9.5-13.5); Monocytes Percent Auto 9.7 % (1.7-12.0); Neutrophils Absolute Auto 8.1 10^3/uL (1.4-6.5); Neutrophils Percent Auto 79.4 % (43.0-75.0); Platelet Count 155 10^3/uL (150-450); Red Blood Count 5.46 10^6/uL (4.70-6.10); Red Cell Distribution Width 16.9 % (11.0-15.0); White Blood Count 10.3 10^3/uL (4.0-11.0)
[2024-03-15 05:41] LABS: Alanine Aminotransferase 25 U/L (16-63); Albumin Globulin Ratio 0.7; Alkaline Phosphatase 101 U/L (46-116); Anion Gap 9.7; Aspartate Amino Transferase 16 U/L (15-37); BUN Creatinine Ratio 9.1; Bilirubin Total 0.8 mg/dL (0.2-1.0); Calcium 9.1 mg/dL (8.5-10.1); Carbon Dioxide 31.1 mmol/L (21.0-32.0); Chloride 98 mmol/L (98-107); Estimated GFR (African America >60 (>=60); Estimated GFR (Non-African Ame >60 (>=60); Globulin 4.2 g/dL; Glucose 103 mg/dL (74-106); Potassium 3.8 mmol/L (3.5-5.1); Sodium 135 mmol/L (136-145); Total Protein 7.2 g/dL (6.4-8.2)
--- NOTE | 2024-03-15 06:51 | P.PN_ITS ---
Progress Note: Subjective Subjective Interval history: No complaints this morning. Pain fairly well-controlled. Exam Constitutional Vital Signs, click to edit/add: Last Vital Signs Temp 97.6 F 03/15/24 04:00 Pulse 83 03/15/24 04:00 Resp 18 03/15/24 04:00 BP 126/79 03/15/24 04:00 Pulse Ox 91 L 03/15/24 04:00 O2 Del Method Room Air 03/15/24 04:00 Documenting provider has reviewed patient's vital signs: yes Common normals: no apparent distress Chest Common normals: inspection of chest normal Respiratory Common normals: normal respiratory effort and no retractions Cardio Common normals: regular rate, regular rhythm and S2 normal heart sound GI Common normals: Normal to inspection, nondistended, normoactive bowel sounds present, soft to palpation and no hepatosplenomegaly Extremity Common normals: abnormal to inspection (Splint on left lower leg) Neuro Common normals: oriented x3 and CN's II-XII intact bilaterally Progress Note: Objective Labs Labs: Short CBC 03/14/24 03/15/24 Range/Units 09:10 04:54 WBC 10.1 10.3 (4.0-11.0) 10^3/uL Hgb 15.3 14.4 (14.0-18.0) g/dL Hct 49.1 47.3 (42.0-54.0) % Plt Count 159 155 (150-450) 10^3/uL BMP 03/14/24 03/15/24 09:10 04:54 Sodium 138 135 L Potassium 3.6 3.8 Chloride 99 98 Carbon Dioxide 31.1 31.1 BUN 12.0 9.0 Creatinine 1.04 0.99 Glucose 107 H 103 Calcium 9.3 9.1 Liver Function 03/14/24 03/15/24 Range/Units 09:10 04:54 Total Bilirubin 0.7 0.8 (0.2-1.0) mg/dL AST 20 16 (15-37) U/L ALT 33 25 (16-63) U/L Alkaline Phosphatase 109 101 (46-116) U/L Albumin 3.4 3.0 L (3.4-5.0) g/dL Progress Note: A&P Assessment and Plan (1) Ankle fracture: Plan Status post fall with fibular fracture-plan per podiatry Narcolepsy-continue with home medications, discussed with Dr. Vallejo but may be spinal anesthesia but will leave that to anesthesia Diabetes mellitus-insulin sliding scale Mild hyponatremia-monitor daily and change IV fluids Movement disorder unspecified-continue with home medications as amantadine Sleep gibxc-[id number]-[id number] to be retested. Loud snoring upon entering the room today. Low back pain-continue with home medications, also will have IV medication for pain control Hypertension-continue with home medications GERD-continue with home medications Admission status: Patient admitted for surgical repair of his fibular fracture. Observation status, surgical intervention today, discussed with surgery about possible discharge later today. Maintain observation status. If stable later this afternoon he can be discharged home in improving condition. Medications see list. Follow-up with me in the office next week.
[2024-03-15] MEDS: CARVEDILOL 25 MG TABLET PO ×2 (08:20→20:59)
[2024-03-15] MEDS: 0.9 % SODIUM CHLORIDE 1,000 ML 50 ML IV (08:20)
[2024-03-15 11:29] LABS: Glucometer 117 mg/dL (74-106)
[2024-03-15] MEDS: CEFAZOLIN SODIUM 3,000 MG in 0.9 % SODIUM CHLORIDE 100 ML 200 MG IV (12:55)
--- NOTE | 2024-03-15 15:07 | P.ORON_ITS ---
Brief Operative Note Date of procedure: 03/15/24 Pre-op diagnosis general: Left bimalleolar ankle fracture with syndesmotic dis ruption, type 2 diabetes with peripheral neuropathy, acute Charcot Post-op diagnosis: same as pre-op Procedure: Procedure performed: Open reduction and internal fixation of lateral malleolus fracture, closed reduction of posterior malleolus fracture, syndesmotic stabilization, application of short leg splint and stress examination under intraoperative fluoroscopy Indications for procedure: Please see consultation note for details but in short patient is a 53-year-old male with complicated medical history including type 2 diabetes peripheral neuropathy who suffered ground-level fall at his home resulting in a displaced bimalleolar ankle fracture. He was admitted through the ER and was consented for the above procedures. I discussed all potential risks and benefits of surgical versus nonsurgical treatment options and all questions were answered to his satisfaction Intraoperative findings: Long oblique Cabrera B fibular fracture with syndesmotic involvement and medial clear space widening. Bone quality was within normal limits given patient's age and gender. Reduction of the fibular fracture did allow for partial reduction of the syndesmosis and full reduction of the posterior malleolus fracture. Due to peripheral neuropathy decision was made to fixate ankle fracture with a super construct utilizing multiple syndesmotic screws and a locking fibular plate. Procedure in detail: Patient was identified in pre op and consent was reviewed. Correct side and site were identified and marked. Pre-op antibiotics were s tarted. Patient was brought to OR suite and place on table in a supine position. General anesthesia was administered. Thigh tourniquet applied. Operative extremity was prepped and draped in usual sterile fashion. Formal time-out was performed and the foot/ankle were exsanguinated and tourniquet inflated. A longitudinal incision placed over the fibular malleolus was undertaken. Combination of sharp and blunt dissection gained access to the fibular fracture in all bleeders were coagulated. Hematoma was evacuated. Any periosteum or fibrous tissue was removed from the fracture line and the fracture surfaces were lightly curetted. Then utilizing manual reduction techniques and reduction clamps the fibula and mortise were then reduced and pinned in place with K wires temporarily. Two 3.5 mm cortical lag screw was placed across the fracture line and compression was noted. Then a 3.5 mm locking fibular plate was placed over the fibula which was held in place temporarily. Then locking and nonlocking screws were placed according to the tire mechanic's standard directions. Stability across the fracture was noted and all temporary fixation was removed. The site was irrigated. With manipulation and reduction of the fibular fracture of the posterior malleolus fracture did reduce however there was some continued medial clear space widening and slight malreduction of the posterior malleolus fracture. The syndesmosis was tested under intraoperative fluoroscopy and noted to be unstable. A stab incision utilizing fluoroscopy was made over the medial malleolus and a syndesmotic clamp was used at the level of the tibiotalar joint and was used to reduce the syndesmosis, medial clear space and posterior malleolus fracture. Once reduction was confirmed on fluoroscopy multiple 4.0 mm solid syndesmotic screws were placed from the fibula and into the tibia stabilizing the syndesmosis. Once the syndesmosis was fixated the clamp was removed and the syndesmosis was tested and noted to be stable. All surgical sites were irrigated with copious sterile saline and incisions were closed in layers. The tourniquet was deflated with a prompt hyperemic response. A dry sterile dressing consisting of Xeroform 4 x 4's and Kerlix was applied. Then multiple layers of cast padding were placed from the ball of the foot to the popliteal fossa followed by a layer of Rambo wrap's. An additional layers of cast padding/Webril were then placed over top this layer of Rambo wrap's ensuring all bony prominences were well-padded and a posterior plaster splint was placed accordingly and help in a neutral position while they were allowed to dry. The posterior splint was then held in place by Rambo wrap's. Patient tolerated the procedure and anesthesia well was transported to the recovery room with vital signs stable and brisk capillary refill to the left toes. Postoperative plan: As long as cleared by anesthesia patient may be discharged home under family's care. Strict nonweightbearing to the operative extremity Extremities to be elevated above the level of the heart is much as possible. Prescriptions were sent to his pharmacy Keep splint clean dry and intact until follow-up Patient is to follow-up next week for incision check and dressing change Implants: Medline 3.5 fibular plate, 3.5 mm interfrag screws (x2), 4.0 mm syndesmotic screws Anesthesia: spinal Surgeon: [facility] Retail Support Specialist: Hung Guerrier Estimated blood loss (mL): 25 Pathology: none sent Condition: stable Disposition: PACU
[2024-03-15] MEDS: LACTATED RINGER'S SOLUTION 1,000 ML 1000 ML IV (15:10)
--- NOTE | 2024-03-15 15:27 | FL_ITS ---
[address] [address] Patient Name: MATTY WADE MRN: [id number] date: 1970 Sex: M Assigned Patient Location: [place] Current Patient Location: [place] Accession/Order Number: [id number] Exam Date: 03/15/2024 13:20 Report Date: 03/23/2024 07:34 At the request of: CLARISA BOJORQUEZ Procedure: FL fluoroscopy <1hr NON-READ EXAM: FL fluoroscopy <1hr NON-READ HISTORY: TECHNIQUE: FINDINGS: Please see Operative Report. Electronically authenticated by: RADIOLOGIST NO Date: 03/23/2024 07:34
[2024-03-15] MEDS: TRANEXAMIC ACID 1,000 MG in 0.9 % SODIUM CHLORIDE 100 ML 440 MG IV (15:30)
--- NOTE | 2024-03-15 15:34 | XR_ITS ---
[address] [address] Patient Name: MATTY WADE MRN: [id number] date: 1970 Sex: M Assigned Patient Location: [place] Current Patient Location: Accession/Order Number: [id number] Exam Date: 03/15/2024 16:00 Report Date: 03/15/2024 21:35 At the request of: ANTONINA HAWK Procedure: XR ankle LT min 3V Exam: Radiographs: XR ankle LT min 3V Reason for exam: postop xr pacu Comparison: Plain films from yesterday XR/XR ankle LT min 3V IMPRESSION: New plate and screw internal fixation of the distal left fibula fracture with syndesmotic screws. Expected postoperative soft tissue emphysema and swelling. Overlying cast material. Tibiotalar joint degenerative change. Remainder unremarkable. Electronically authenticated by: MICHAEL CASANOVA Date: 03/15/2024 21:35
[2024-03-15 16:16] LABS: Glucometer 107 mg/dL (74-106)
--- NOTE | 2024-03-15 16:20 | PC.NURSE ---
Spinal level at hips bilaterally
--- NOTE | 2024-03-15 16:44 | PC.NURSE ---
Spinal level at hips bilaterally
--- NOTE | 2024-03-15 16:49 | PC.NURSE ---
Spinal level at hips bilaterally
[2024-03-15 19:48] LABS: Glucometer 179 mg/dL (74-106)
[2024-03-15] MEDS: AMANTADINE HCL 100 MG CAPSULE PO (20:59)
[2024-03-15] MEDS: GABAPENTIN 300 MG CAPSULE 600 MG PO (20:59)
[2024-03-15] MEDS: ASPIRIN 81 MG TABLET.DR PO (20:59)
[2024-03-15] MEDS: HYDROXYZINE PAMOATE 25 MG CAPSULE PO (20:59)
[2024-03-15] MEDS: MODAFINIL 100 MG TABLET 200 MG PO (20:59)
[2024-03-15] MEDS: POTASSIUM CHLORIDE 10 MEQ ER TABLET PO (20:59)
[2024-03-15] MEDS: TIZANIDINE HCL 4 MG TABLET PO (20:59)
[2024-03-15] MEDS: ATORVASTATIN CALCIUM 10 MG TABLET PO (21:00)
--- NOTE | 2024-03-17 14:42 | CM.DCFOLLOWU ---
1st attempt 03/17/24
--- NOTE | 2024-03-20 14:11 | CM.DCFOLLOWU ---
Person spoke with: pt's How are you feeling? well How is your pain? minimal Did you understand your discharge instructions? yes Do you have any questions about your discharge instructions? no Were you given any prescriptions at discharge? yes Were you able to get your prescriptions filled? yes Do you understand how to take your medications as ordered? yes Do you have any questions about your follow up appointment and do you plan to keep your follow up appointment? no questions, had follow up at Dr. Wright office today Is there anything else that you would like to discuss? no Questions/Comments/Concerns/Other: none
== END 2024-03-15 21:31 | disposition home or self-care (01) ==
LOC: ER 09:23 → MS 09:55
PROVIDERS: Podiatrist Foot & Ankle Surgery; Admitting Provider Family Medicine; Emergency Provider Emergency Medicine; PCP Family Medicine; Visit Provider Family Medicine
PROC: (CPT 1462; principal; 2024-03-15 13:00)
DX: S82.842A Displaced bimalleolar fracture of left lower leg, initial encounter for closed fracture (principal); S93.432A Sprain of tibiofibular ligament of left ankle, initial encounter; E11.42 Type 2 diabetes mellitus with diabetic polyneuropathy; G47.30 Sleep apnea, unspecified; G47.419 Narcolepsy without cataplexy; M54.50 Low back pain, unspecified; I10 Essential (primary) hypertension; K21.9 Gastro-esophageal reflux disease without esophagitis; E11.610 Type 2 diabetes mellitus with diabetic neuropathic arthropathy; E87.1 Hypo-osmolality and hyponatremia; G25.9 Extrapyramidal and movement disorder, unspecified; W19.XXXA Unspecified fall, initial encounter; Z79.899 Other long term (current) drug therapy
CPT/HCPCS: 27768; 27792; 27829; 29515; 36415; 71045; 73562; 73610; 76000; 80048; 80053; 82042; 82247; 82948; 83735; 83880; 84075; 84155; 84450; 84460; 84484; 85025; 85610; 85730; 93005; 93308; 93356; 94667; 94668; 94761; 96374; 96376; 99285; C1713; G0378; J0131; J0665; J0690; J2250; J2270; J2704; J3010; Q0177

== ENCOUNTER 2024-03-20 16:06 | Outpatient (OUT) | payer MEDICAID, SELFPAY | END 2024-03-20 16:07 | disposition home or self-care (01) | LOC: WC 16:06 | PROVIDERS: PCP Family Medicine; Visit Provider Physician Assistant | DX: L97.512 Non-pressure chronic ulcer of other part of right foot with fat layer exposed (principal); T81.89XA Other complications of procedures, not elsewhere classified, initial encounter | CPT/HCPCS: 11043; 29515 ==

== ENCOUNTER 2024-04-04 14:19 | Outpatient (OUT) | payer MEDICAID, SELFPAY ==
--- NOTE | 2024-04-04 | XR_ITS ---
The [address] [address] Patient Name: MATTY WADE MRN: [id number] date: 1970 Sex: M Assigned Patient Location: Current Patient Location: Accession/Order Number: [id number] Exam Date: 04/04/2024 14:20 Report Date: 04/05/2024 07:42 At the request of: CLARISA BOJORQUEZ Procedure: XR ankle LT min 3V PROCEDURE: XR ankle LT min 3V COMPARISON: 03/15/2024 HISTORY: LEFT ANKLE PAIN FINDINGS: BONES:Stable complex distal fibular fracture with internal fixation utilizing a lateral plate and screws. Fixation across the tibiofibular syndesmosis. Degenerative changes with marginal osteophyte formation SOFT TISSUES:Lateral surgical skin [place] EFFUSION:None visible. OTHER: Negative. XR/XR ankle LT min 3V IMPRESSION: Stable fibular fracture with internal fixation Electronically authenticated by: ALVINA CAICEDO Date: 04/05/2024 07:42
--- OUTSIDE RECORDS SUMMARY | 2024-04-04 14:27 | XMS_ITS | CCD ---
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 Name Role Phone UNKNOWN, PROVIDER Admitting Unavailable [...] DELGADO, Diallo Berkowitz Attending Unavailable Quynh DELGADO, Andisai Berkowitz Attending Unavailable Quynh DELGADO, Diallo Berkowitz Attending Unavailable CHINO Vallejo Attending Provider RUBÉN LOCO Attending Unavailable RUBÉN LOCO Attending Unavailable VALENCIA DE LEÓN Attending Unavailable VALENCIA DE LEÓN Referring Trey Packer Attending Trey Packer Admitting Unavailable Allergies Allergy Classification Reported Allergen(s) Allergy Type Date of Onset Reaction(s) Facility (1 source) Aspartame Drug Allergy 08-17-20 18 [facility] (1 source) avoid; Translations: [Unknown] Propensity to adverse reactions (disorder) 08-17-20 18 [facility] (1 source) vitamin B12; Translations: [cyanocobalamin] Drug Allergy Unknown (qualifier value) [facility] (1 source) Acetaminophen / HYDROcodone Drug Allergy [facility] Repository (1 source) Corticosteroids Drug allergy (disorder) [facility] (1 source) fentaNYL Drug Allergy [facility] Rep[facility] (1 source) Misc-Food; Translations: [Misc-Food] Food allergy (disorder) [facility] Rep[facility] (1 source) Corticosteroids Drug allergy (disorder) 05-14-20 18 [facility] Repository Medications Current Medications Medication Drug [...] Bedtime May 14, 2018 12:00am Vit D3-Folic Tymc-L2-T5-B12 (1 source) Start: 05-14-2018 take 1 tablet by mouth once daily Vit D3-Folic Cxjz-B1-M6-B12 Active 1 TAB PO Daily May 14, [...] Onset: 3 Chronic Other aftercare (1 source) 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; Translations: [SENIOR CARE 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 ASPIRIN] Onset: 3 Episodic Other aftercare (1 source) 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; Translations: [OTH DRY CANS BACK TENDER CURRENT DRUG THERAPY] Onset: 3 Episodic Other [...] Test Name Value Interpretation Reference Range Facility [facility] 01-03-2024 L Specimen: [id number] Received: 01/03/24 Status: [facility] Num: [id number] Spec Type: Surgical Subm Dr: Trey Vallejo DPM, MS Tissues: A Bone Fragments - Pathologic Fracture (PROXIMAL PHALANX RIGHT HALLU) Procedures: HE/2, Gross/Micro L5, Decalcification Age/ Patient Sex Location Account Attending Physician Matty Garces 53/M LABELL [id number] Trey Vallejo DPM, MS SPEC NUM: [id number] RECD: 01/03/24 STATUS: [facility] NUM: [id number] SOFY: 01/03/[address]: Trey Vallejo DPM, MS ENTERED: 01/03/24 [facility] DR: Ayesha Lundberg SPEC TYPE: Surgical DEPT: [...] Sectioning reveals unremarkable yellow, spongy bone matrix. Observer [employer] sections are submitted in A1 following decal. Clinical history: Non-pressure chronic ulcer . Right hallux IPJ arthroplasty with wound debridement and graft application TW Specimen: [id number] Received: 01/03/24 Status: [facility] Num: [id number] Spec Type: Surgical Subm Dr: Trey Vallejo,DPM, MS Tissues: A Bone Fragments - Pathologic Fracture (PROXIMAL PHALANX RIGHT HALLU) Procedures: HE/2, Gross/Micro L5, Decalcification Patient: Matty Garces [id number] (Continued) Specimen: [id number] Received: 01/03/24 (Continued) Signed (signature on file) Viral Rae MD 01/06/24 1838 Specimen: [id number] Received: 01/03/24 Status: [facility] Num: [id number] Spec Type: Surgical Subm Dr: Trey Vallejo,DPM, MS Tissues: A Bone Fragments - Pathologic Fracture (PROXIMAL PHALANX RIGHT HALLU) Procedures: HE/2, Gross/Micro L5, Decalcification Patient: Matty Garces [id number] (Continued) Specimen: [id number] Received: 01/03/24 (Continued) CPT Codes 63713 Specimen: [id number] Received: 01/03/24 Status: [facility] Num: [id number] Spec Type: Surgical Subm Dr: Trey Vallejo,DPM, MS Tissues: A Bone Fragments - Pathologic Fracture (PROXIMAL PHALANX RIGHT HALLU) Procedures: HE/2, Gross/Micro L5, Decalcification Patient: MiliMatty Toni [id number] (Continued) Signed (signature on file) Viral Rae MD 01/06/24 1838 Normal [facility] CT CSPINE WO CONon CT [...] ANGEL SAID Date: 2022-12-06 06:37 Normal [facility] CT FACIAL BONES WO CONon [...] ANGEL SAID Date: 2022-12-06 06:41 Normal [facility] CT HEAD WO CONon 12-06-2022 [...] ANGEL SAID Date: 2022-12-06 06:39 Normal [facility] XR ELBOW RT MIN 3 VIEWSon XR ELBOW RT MIN 3 VIEWS Exam: Radiographs: XR ELBOW RT MIN 3 VIEWS Reason for exam: Elbow pain Comparison: None IMPRESSION: Right elbow degenerative changes. Olecranon spur. Remainder of the right elbow is unremarkable. Electronically authenticated by: MICHALE CASANOVA Date: 2022-12-06 07:22 Normal [facility] XR FOREARM RT 2Von 3 XR FOREARM RT 2V Exam: Radiographs: XR FOREARM RT 2V Reason for exam: Forearm pain Comparison: None IMPRESSION: Mild degenerative changes in the right elbow and wrist. Right forearm is otherwise unremarkable. Electronically authenticated by: MICHAEL CASANOVA Date: 2022-12-06 08:07 Normal [facility] PSA, FREE AND TOTAL RATIOon 12-03-2022 % Free PSA 9.0 % Normal [facility] Comment on above: Result Comment: The [...] men. Performed By: #### P SAFREE #### [facility] [address] [address] [address] Shabnam Rae Prostate specific Ag [Mass/Vol] 5.9 ng/mL Critically high 0.0-4.0 [facility] Comment on above: Result Comment: Tanja FANGIA methodology. . According to the [place] [employer], Serum PSA should decrease and [...] disease. Performed By: #### P SAFREE #### [facility] [address] [address] [address] Shabnam Rae PSA, Free 0.53 ng/mL Normal N/A [facility] Comment on above: Result Comment: Tanja ayala ECLOSMEL methodology. Performed By: #### P SAFREE #### [facility] [address] [address] [address] Shabnam Rae INSULINon 12-02-2022 Insulin 20.2 uIU/mL Normal 2.6-24.9 [facility] Comment on above: Performed By: #### P SASC #### [facility] [address] [address] [address] Shabnam Rae TESTOSTERONE, TOTALon 2022 Testosterone [Mass/Vol] 256 ng/dL Critically low 264-916 [facility] Comment on above: Result Comment: Adul t male reference interval is based on a population of healthy nonobese males (BMI <30) between 19 and 39 years old. adia Ch.al. JCEM 2017,102;9370-5603. PMID: [id number]. Performed By: #### P SASC #### [facility] [address] [place] [address] Dr. Shabnam Rae CBC AUTO DIFFon 12-01-2022 BASO # 0.1 103/ul Normal 0.0-0.1 [facility] Comment on above: Performed By: #### P SASC #### [facility] [address] [address] [address] Shabnam Rae Basophils/100 WBC (Bld) 1.0 % Normal 0.2-2.0 [facility] Comment on above: Performed By: #### P SASC #### [facility] [address] [address] [address] Shabnam Rae EO # 0.1 103/ul Normal 0.0-0.7 [facility] Comment on above: Performed By: #### P SASC #### [facility] [address] [address] [address] Shabnam Rae Eosinophils/100 WBC (Bld) 1.8 % Normal 0.9-7.0 [facility] Comment on above: Performed By: #### P SASC #### [facility] [address] [place] [address] Dr. Shabnam Rae Erythrocyte distribution width (RBC) [Ratio] 14.8 % Normal 11.0-15.0 [facility] Comment on above: Performed By: #### P SASC #### [facility] [address] [place] [address] Dr. Shabnam Rae Hematocrit (Bld) [Volume fraction] 49.9 % Normal 42.0-54.0 [facility] Comment on above: Performed By: #### P SASC #### [facility] [address] [address] [address] Shabnam Rae Hemoglobin (Bld) [Mass/Vol] 16.0 g/dL Normal 14.0-18.0 [facility] Comment on above: Performed By: #### P SASC #### [facility] [address] [address] [address] Shabnam Rae IG # 0.04 10e3/ul Critically high 0.00-0.03 [facility] Comment on above: Performed By: #### P SASC #### [facility] [address] [place] [address] Dr. Shabnam Rae IG % 0.6 % Critically high 0.0-0.[address] [facility] Comment on above: Performed By: #### P SASC #### [facility] [address] [address] [address] Shabnam Rae LYMPH # 1.0 103/ul Critically low 1.2-3.8 [facility] Comment on above: Performed By: #### P SASC #### [facility] [address] [place] [address] Dr. Shabnam Rae Lymphocytes/100 WBC (Bld) 16.2 % Critically low 20.5-60.0 [facility] Comment on above: Performed By: #### P SASC #### [facility] [address] [address] [address] Shabnam Rae MANUAL DIFF REQ NO Normal [facility] Comment on above: Performed By: #### P SASC #### [facility] [address] [address] [address] Shabnam Rae MCH (RBC) [Entitic mass] 27.7 pg Normal 25.9-34.0 [facility] Comment on above: Performed By: #### P SASC #### [facility] [address] [address] [address] Shabnam Rae MCHC (RBC) [Mass/Vol] 32.1 g/dL Normal 29.9-35.2 [facility] Comment on above: Performed By: #### P SASC #### [facility] [address] [address] [address] Shabnam Rae MCV (RBC) [Entitic vol] 86.3 fL Normal 80.0-94.0 [facility] Comment on above: Performed By: #### P SASC #### [facility] [address] [place] [address] Dr. Shabnam Rae MONO # 0.5 103/ul Normal 0.3-0.8 [facility] Comment on above: Performed By: #### P SASC #### [facility] [address] [place] [address] Dr. Shabnam Rae Monocytes/100 WBC (Bld) 7.6 % Normal 1.7-12.0 [facility] Comment on above: Performed By: #### P SASC #### [facility] [address] [place] [address] Dr. Shabnam Rae NEUT # 4.6 103/ul Normal 1.4-6.5 [facility] Comment on above: Performed By: #### P SASC #### [facility] [address] [place] [address] Dr. Shabnam Rae Neutrophils/100 WBC (Bld) 72.8 % Normal 43.0-75.0 [facility] Comment on above: Performed By: #### P SASC #### [facility] [address] [place] [address] Dr. Shabnam Rae Platelet mean volume (Bld) [Entitic vol] 9.8 fL Normal 9.5-13.5 [facility] Comment on above: Performed By: #### P SASC #### [facility] [address] [place] [address] Dr. Shabnam Rae PLT 203 103/ul Normal 150-450 [facility] Comment on above: Performed By: #### P SASC #### [facility] [address] [place] [address] Dr. Shabnam Rae RBC 5.78 106/ul Normal 4.70-6.10 [facility] Comment on above: Performed By: #### P SASC #### [facility] [address] [place] [address] Dr. Shabnam Rae WBC 6.3 103/ul Normal 4.0-11.0 [facility] Comment on above: Performed By: #### P SASC #### [facility] [address] [place] [address] Dr. Shabnam Rae FREE THYROXINE INDEX T7on FTI 2.05 Normal 1.30-4.50 [facility] Comment on above: Performed By: #### T SH, CMP, LIPID, T7, URIC #### [facility] [address] [place] [address] Dr. Shabnam Rae T3U 33.0 % Normal 33.0-40.0 [facility] Comment on above: Performed By: #### T SH, CMP, LIPID, T7, URIC #### [facility] [address] [place] [address] Dr. Shabnam Rae T4 [Mass/Vol] 6.20 ug/dL Normal 4.50-12.10 [facility] Comment on above: Performed By: #### T SH, CMP, LIPID, T7, URIC #### [facility] [address] [place] [address] Dr. Shabnam Rae GLYCOHEMOGLOBIN A1Con 2022 ADA RECOMMENDATION SEE BELOW Normal [facility] Comment on above: Result Comment: ADA RECOMMENDED LIMIT 4.0 - 6.0 ADA THERAPEUTIC TARGET < 7.0 ACTION SUGGESTED > 7.0 Performed By: #### P SASC #### [facility] [address] [place] [address] Dr. Shabnam Rae Glucose [Mass/Vol] 114 mg/dL Normal [facility] Comment on above: Performed By: #### P SASC #### [facility] [address] [place] [address] Dr. Shabnam Rae HbA1c (Bld) [Mass fraction] 5.6 % Normal 4.5-6.2 [facility] Comment on above: Performed By: #### P SASC #### [facility] [address] [address] [address] Shabnam Rae LIPID PROFILEon 12-01-2022 CHOL-HDL RATIO NORM SEE BELOW Normal [facility] Comment on above: Result Comment: 3.3 - 4.4 LOW RISK 4.4 - 7.1 AVERAGE RISK 7.1 - 11.0 MODERATE RISK >11.0 HIGH RISK Performed By: #### T SH, CMP, LIPID, T7, URIC #### [facility] [address] [address] [address] Shabnam Rae Cholesterol [Mass/Vol] 176 mg/dL Normal <=200 [facility] Comment on above: Performed By: #### T SH, CMP, LIPID, T7, URIC #### [facility] [address] [address] [address] Shabnam Rae Cholesterol in HDL [Mass/Vol] 48 mg/dL Normal 40-60 [facility] Comment on above: Performed By: #### T SH, CMP, LIPID, T7, URIC #### [facility] [address] [address] [address] Shabnam Rae Cholesterol in LDL [Mass/Vol] 108.2 mg/dL Normal [facility] Comment on above: Performed By: #### T SH, CMP, LIPID, T7, URIC #### [facility] [address] [address] [address] Shabnam Rae Cholesterol.total/Ch olesterol in HDL [Mass ratio] 3.7 {ratio} Normal [facility] Comment on above: Performed By: #### T SH, CMP, LIPID, T7, URIC #### [facility] [address] [address] [address] Shabnam Rae HDL NORMAL > or = 60 mg/dl - LOW CARDIOVASCULAR RISK <40 mg/dl - HIGH CARDIOVASCULAR RISK Normal [facility] Comment on above: Performed By: #### T SH, CMP, LIPID, T7, URIC #### [facility] [address] [address] [address] Shabnam Rae LDL CALC NORMAL SEE BELOW Normal [facility] Comment on above: Result Comment: <100 mg/dl OPTIMAL 100 - 129 mg/dl NEAR OR ABOVE OPTIMAL 130 - 159 mg/dl BORDERLINE HIGH 160 - 189 mg/dl HIGH >190 mg/dl VERY HIGH Performed By: #### T SH, CMP, LIPID, T7, URIC #### [facility] [address] [address] [address] Shabnam Rae Triglyceride [Mass/Vol] 99 mg/dL Normal <=150 [facility] Comment on above: Performed By: #### T SH, CMP, LIPID, T7, URIC #### [facility] [address] [address] [address] Shabnam Rae VLDL CALC 19.8 mg/dL Normal [facility] Comment on above: Performed By: #### T SH, CMP, LIPID, T7, URIC #### [facility] [address] [address] [address] Shabnam Rae PROF 14(COMP METB)on 023 Albumin [Mass/Vol] 4.1 g/dL Normal 3.4-5.0 [facility] Comment on above: Performed By: #### T SH, CMP, LIPID, T7, URIC #### [facility] [address] [address] [address] Shabnam Rae Albumin/Globulin [Mass ratio] 1.1 {ratio} Normal [facility] Comment on above: Performed By: #### T SH, CMP, LIPID, T7, URIC #### [facility] [address] [address] [address] Shabnam Rae ALP [Catalytic activity/Vol] 101 U/L Normal 46-116 [facility] Comment on above: Performed By: #### T SH, CMP, LIPID, T7, URIC #### [facility] [address] [address] [address] Shabnam Rae ALT [Catalytic activity/Vol] 26 U/L Normal 16-63 [facility] Comment on above: Performed By: #### T SH, CMP, LIPID, T7, URIC #### [facility] [address] [address] [address] Shabnam Rae Anion gap [Moles/Vol] 10.1 mmol/L Normal [facility] Comment on above: Performed By: #### T SH, CMP, LIPID, T7, URIC #### [facility] [address] [place] [address] Dr. Shabnam Rae AST [Catalytic activity/Vol] 19 U/L Normal 15-37 [facility] Comment on above: Performed By: #### T SH, CMP, LIPID, T7, URIC #### [facility] [address] [place] [address] Dr. Shabnam Rae Bilirubin [Mass/Vol] 0.8 mg/dL Normal 0.2-1.0 [facility] Comment on above: Performed By: #### T SH, CMP, LIPID, T7, URIC #### [facility] [address] [place] [address] Dr. Shabnam Rae Calcium [Mass/Vol] 9.5 mg/dL Normal 8.5-10.1 [facility] Comment on above: Performed By: #### T SH, CMP, LIPID, T7, URIC #### [facility] [address] [place] [address] Dr. Shabnam Rae Chloride [Moles/Vol] 102 mmol/L Normal 98-107 [facility] Comment on above: Performed By: #### T SH, CMP, LIPID, T7, URIC #### [facility] [address] [place] [address] Dr. Shabnam Rae CO2 [Moles/Vol] 32.4 mmol/L Critically high 21.0-32.0 [facility] Comment on above: Performed By: #### T SH, CMP, LIPID, T7, URIC #### [facility] [address] [place] [address] Dr. Shabnam Rae Creatinine [Mass/Vol] 1.00 mg/dL Normal 0.70-1.30 [facility] Comment on above: Performed By: #### T SH, CMP, LIPID, T7, URIC #### [facility] [address] [place] [address] Dr. Shabnam Rae EGFR-AF NAMIBIAN >60 Normal >=60 [facility] Comment on above: Performed By: #### T SH, CMP, LIPID, T7, URIC #### [facility] [address] [address] [address] Shabnam Rae EGFR-NON AF NAMIBIAN >60 Normal >=60 [facility] Comment on above: Performed By: #### T SH, CMP, LIPID, T7, URIC #### [facility] [address] [place] [address] Dr. Shabnam Rae Globulin (S) [Mass/Vol] 3.8 g/dL Normal [facility] Comment on above: Performed By: #### T SH, CMP, LIPID, T7, URIC #### [facility] [address] [place] [address] Dr. Shabnam Rae Glucose [Mass/Vol] 94 mg/dL Normal 74-106 [facility] Comment on above: Performed By: #### T SH, CMP, LIPID, T7, URIC #### [facility] [address] [place] [address] Dr. Shabnam Rae Potassium [Moles/Vol] 3.5 mmol/L Normal 3.5-5.1 [facility] Comment on above: Performed By: #### T SH, CMP, LIPID, T7, URIC #### [facility] [address] [place] [address] Dr. Shabnam Rae Protein [Mass/Vol] 7.9 g/dL Normal 6.4-8.2 [facility] Comment on above: Performed By: #### T SH, CMP, LIPID, T7, URIC #### [facility] [address] [address] [address] Shabnam Rae Sodium [Moles/Vol] 141 mmol/L Normal 136-145 [facility] Comment on above: Performed By: #### T SH, CMP, LIPID, T7, URIC #### [facility] [address] [place] [address] Dr. Shabnam Rae Urea nitrogen [Mass/Vol] 15.0 mg/dL Normal 7.0-18.0 [facility] Comment on above: Performed By: #### T SH, CMP, LIPID, T7, URIC #### [facility] [address] [place] [address] Dr. Shabnam Rae Urea nitrogen/Creatinine [Mass ratio] 15.0 mg/mg Normal [facility] Comment on above: Performed By: #### T SH, CMP, LIPID, T7, URIC #### [facility] [address] [place] [address] Dr. Shabnam Rae TSHon 12-01-2022 TSH 1.504 uIU/mL Normal 0.358-3.740 [facility] Comment on above: Performed By: #### T SH, CMP, LIPID, T7, URIC #### [facility] [address] [place] [address] Dr. Shabnam Rae URIC ACID SERUMon 12-01-2022 Urate [Mass/Vol] 6.9 mg/dL Normal 3.5-7.2 [facility] Comment on above: Performed By: #### T SH, CMP, LIPID, T7, URIC #### [facility] [address] [place] [address] Dr. Shabnam Rae TESTOSTERONE, TOTALon 2021 Testosterone [Mass/Vol] 244 ng/dL Critically low 264-916 [facility] Comment on above: Result Comment: Adul t male reference interval is based on a population of healthy nonobese males (BMI <30) between 19 and 39 years old. Dima et.al. JCEM 2017,102;0605-9739. PMID: [id number]. Performed By: #### P SAFREE #### [facility] [address] [place] [address] Dr. Shabnam Rae TESTOSTERONE, FREE,DIRECT, T OTALon 03-16-2022 Free Testosterone(Direct) 2.1 pg/mL Critically low 7.2-24.0 [facility] Comment on above: Result Comment: Perf ormed at: BN Performed By: #### C VDTBH #### [facility] [address] [place] [address] Dr. Shabnam Rae Testosterone [Mass/Vol] 252 ng/dL Critically low 264-916 [facility] Comment on above: Result Comment: Adul t male reference interval is based on a population of healthy nonobese males (BMI <30) between 19 and 39 years old. adia Ch.al. JCEM 2017,102;4091-6924. PMID: [id number]. Performed at: Performed By: #### C [facility] #### [facility] [address] [address] [address] Shabnam Rae Formson 02-26-2022 Forms [id number] 7#1.00CD:127 Normal [facility] Screenson 02-26-2022 Screens [id number] 7#1.00CD:127 Normal [facility] Screens [id number] #1.00CD:127 Normal [facility] Urology Office/Clinic Noteon 02-26-2022 Urology Office/Clinic [...] qualifying data (more content not included)... Normal [facility] Comment on above: Result Comment: Elec tronically Signed By: Viola Grullon MD\.br\Date and Time Signed: 02/26/22 00:20 EDT\.br\Electronically Co-Signed By: Helen Leung\.br\Date and Time Co-Signed: 02/25/22 11:16 EDT Ambulatory Visit Summaryon 0 02-25-2022 Ambulatory Visit Summary MATTY GARCES :1970 Visit Date:02/25/2022 Ambulatory Visit Instructions Your Diagnosis Hydrocele Varicocele BPH without urinary obstruction Tests Performed Urnls Dip Stick Auto w/o Microscopy POC 06814 Your Care Team Attending Physician - Viola [...] Urnls Dip Stick Auto w/o Microscopy POC 85669 (02/25/2022) Bilirubin Urine Dipstick - Negative Blood Urine Dipstick - Negative Glucose Urine Dipstick - Negative Ketones Urine Dipstick - Negative Leukocytes Urine Dipstick - Negative Nitrite Urine Dipstick - Negative Protein Urine Dipstick - Negative Specific [place] Urine Dipstick - >=1.030 Urine Appearance Urine [...] the hydrocele for any changes. ? Take fptp-mqs-eoogwgr and prescription medicines only as told by [...] not included)... Normal [facility] Patient Educationon 02-26-20 Patient Education Urology Hydrocele, [...] the hydrocele for any changes. ? Take kyso-rze-malzsyh and prescription medicines only as told by [...] Reviewed: 09/10/2018 Elsevier Patient Education ? 2019 [employer] [facility] ED Note-Physicianon 02-04-20 ED Note-Physician [id number]#[id number]:127 [facility] RAD - Ultrasound Reporton RAD - Ultrasound Report [id number] #1.00CD:127 Normal [facility] RAD - CT Reporton 02-02-2022 RAD - CT Report [id number]#1.00CD:127 Normal [facility] RAD - CT Report [id number]#1.00CD:127 Normal [facility] CBC AUTO DIFFon 01-05-2022 BASO # 0.0 103/ul Normal 0.0-0.1 [facility] Comment on above: Performed By: #### P SAFREE #### [facility] [address] [place] [address] Dr. Shabnam Rae Basophils/100 WBC (Bld) 0.6 % Normal 0.2-2.0 [facility] Comment on above: Performed By: #### P SAFREE #### [facility] [address] [place] [address] Dr. Shabnam Rae EO # 0.1 103/ul Normal 0.0-0.7 [facility] Comment on above: Performed By: #### P SAFREE #### [facility] [address] [place] [address] Dr. Shabnam Rae Eosinophils/100 WBC (Bld) 2.1 % Normal 0.9-7.0 [facility] Comment on above: Performed By: #### P SAFREE #### [facility] [address] [place] [address] Dr. Shabnam Rae Erythrocyte distribution width (RBC) [Ratio] 13.1 % Normal 11.0-15.0 [facility] Comment on above: Performed By: #### P SAFREE #### [facility] [address] [place] [address] Dr. Shabnam Rae Hematocrit (Bld) [Volume fraction] 43.1 % Normal 42.0-54.0 [facility] Comment on above: Performed By: #### P SAFREE #### [facility] [address] [place] [address] Dr. Shabnam Rae Hemoglobin (Bld) [Mass/Vol] 13.7 g/dL Critically low 14.0-18.0 [facility] Comment on above: Performed By: #### P SAFREE #### [facility] [address] [address] [address] Shabnam Rae IG # 0.04 10e3/ul Critically high 0.00-0.03 [facility] Comment on above: Performed By: #### P SAFREE #### [facility] [address] [address] [address] Shabnam Rae IG % 0.6 % Critically high 0.0-0.5 [facility] Comment on above: Performed By: #### P SAFREE #### [facility] [address] [address] [address] Shabnam Rae LYMPH # 0.9 103/ul Critically low 1.2-3.8 [facility] Comment on above: Performed By: #### P SAFREE #### [facility] [address] [address] [address] Shabnam Rae Lymphocytes/100 WBC (Bld) 13.1 % Critically low 20.5-60.0 [facility] Comment on above: Performed By: #### P SAFREE #### [facility] [address] [place] [address] Dr. Shabnam Rae MANUAL DIFF REQ NO Normal [facility] Comment on above: Performed By: #### P SAFREE #### [facility] [address] [address] [address] Shabnam Rae MCH (RBC) [Entitic mass] 29.5 pg Normal 25.9-34.0 [facility] Comment on above: Performed By: #### P SAFREE #### [facility] [address] [address] [address] Shabnam Rae MCHC (RBC) [Mass/Vol] 31.8 g/dL Normal 29.9-35.2 [facility] Comment on above: Performed By: #### P SAFREE #### [facility] [address] [address] [address] Shabnam Rae MCV (RBC) [Entitic vol] 92.9 fL Normal 80.0-94.0 [facility] Comment on above: Performed By: #### P SAFREE #### [facility] [address] [place] [address] Dr. Shabnam Rae MONO # 0.4 103/ul Normal 0.3-0.8 [facility] Comment on above: Performed By: #### P SAFREE #### [facility] [address] [place] [address] Dr. Shabnam Rae Monocytes/100 WBC (Bld) 5.4 % Normal 1.7-12.0 [facility] Comment on above: Performed By: #### P SAFREE #### [facility] [address] [place] [address] Dr. Shabnam Rae NEUT # 5.2 103/ul Normal 1.4-6.5 [facility] Comment on above: Performed By: #### P SAFREE #### [facility] [address] [place] [address] Dr. Shabnam Rae Neutrophils/100 WBC (Bld) 78.2 % Critically high 43.0-75.0 [facility] Comment on above: Performed By: #### P SAFREE #### [facility] [address] [place] [address] Dr. Shabnam Rae Platelet mean volume (Bld) [Entitic vol] 10.9 fL Normal 9.5-13.5 [facility] Comment on above: Performed By: #### P SAFREE #### [facility] [address] [place] [address] Dr. Shabnam Rae PLT 153 103/ul Normal 150-450 [facility] Comment on above: Performed By: #### P SAFREE #### [facility] [address] [place] [address] Dr. Shabnam Rae RBC 4.64 106/ul Critically low 4.70-6.10 [facility] Comment on above: Performed By: #### P SAFREE #### [facility] [address] [place] [address] Dr. Shabnam Rae WBC 6.6 103/ul Normal 4.0-11.0 [facility] Comment on above: Performed By: #### P SAFREE #### [facility] [address] [place] [address] Dr. Shabnam Rae CRPon 01-05-2022 CRP 0.9 mg/dL Normal <=1.0 [facility] Comment on above: Performed By: #### P SAFREE #### [facility] [address] [place] [address] Dr. Shabnam Rae PROF 14(COMP METB)on 022 Albumin [Mass/Vol] 3.6 g/dL Normal 3.4-5.0 [facility] Comment on above: Performed By: #### P SAFREE #### [facility] [address] [place] [address] Dr. Shabnam Rae Albumin/Globulin [Mass ratio] 1.0 {ratio} Normal [facility] Comment on above: Performed By: #### P SAFREE #### [facility] [address] [place] [address] Dr. Shabnam Rea ALP [Catalytic activity/Vol] 114 U/L Normal 46-116 [facility] Comment on above: Performed By: #### P SAFREE #### [facility] [address] [place] [address] Dr. Shabnam Rae ALT [Catalytic activity/Vol] 26 U/L Normal 16-63 [facility] Comment on above: Performed By: #### P SAFREE #### [facility] [address] [place] [address] Dr. Shabnam Rae Anion gap [Moles/Vol] 9.3 mmol/L Normal [facility] Comment on above: Performed By: #### P SAFREE #### [facility] [address] [place] [address] Dr. Shabnam Rae AST [Catalytic activity/Vol] 19 U/L Normal 15-37 [facility] Comment on above: Performed By: #### P SAFREE #### [facility] [address] [place] [address] Dr. Shabnam Rae Bilirubin [Mass/Vol] 0.5 mg/dL Normal 0.2-1.0 [facility] Comment on above: Performed By: #### P SAFREE #### [facility] [address] [place] [address] Dr. Shabnam Rae Calcium [Mass/Vol] 8.9 mg/dL Normal 8.5-10.1 [facility] Comment on above: Performed By: #### P SAFREE #### [facility] [address] [address] [address] Shabnam Rae Chloride [Moles/Vol] 106 mmol/L Normal 98-107 [facility] Comment on above: Performed By: #### P SAFREE #### [facility] [address] [place] [address] Dr. Shabnam Rae CO2 [Moles/Vol] 30.7 mmol/L Normal 21.0-32.0 [facility] Comment on above: Performed By: #### P SAFREE #### [facility] [address] [place] [address] Dr. Shabnam Rae Creatinine [Mass/Vol] 1.15 mg/dL Normal 0.70-1.30 [facility] Comment on above: Performed By: #### P SAFREE #### [facility] [address] [place] [address] Dr. Shabnam Rae EGFR-AF NAMIBIAN >60 Normal >=60 [facility] Comment on above: Performed By: #### P SAFREE #### [facility] [address] [place] [address] Dr. Shabnam Rae EGFR-NON AF NAMIBIAN >60 Normal >=60 [facility] Comment on above: Performed By: #### P SAFREE #### [facility] [address] [place] [address] Dr. Shabnam Rae Globulin (S) [Mass/Vol] 3.6 g/dL Normal [facility] Comment on above: Performed By: #### P SAFREE #### [facility] [address] [place] [address] Dr. Shabnam Rae Glucose [Mass/Vol] 117 mg/dL Critically high 74-106 T [facility] Comment on above: Performed By: #### P SAFREE #### [facility] [address] [place] [address] Dr. Shabnam Rae Potassium [Moles/Vol] 4.0 mmol/L Normal 3.5-5.1 [facility] Comment on above: Performed By: #### P SAFREE #### [facility] [address] [place] [address] Dr. Shabnam Rae Protein [Mass/Vol] 7.2 g/dL Normal 6.1-8.2 [facility] Comment on above: Performed By: #### P SAFREE #### [facility] [address] [place] [address] Dr. Shabnam Rae Sodium [Moles/Vol] 142 mmol/L Normal 136-145 [facility] Comment on above: Performed By: #### P SAFREE #### [facility] [address] [place] [address] Dr. Shabnam Rae Urea nitrogen [Mass/Vol] 15.0 mg/dL Normal 7.0-18.0 [facility] Comment on above: Performed By: #### P SAFREE #### [facility] [address] [place] [address] Dr. Shabnam Rae Urea nitrogen/Creatinine [Mass ratio] 13.0 mg/mg Normal [facility] Comment on above: Performed By: #### P SAFREE #### [facility] [address] [place] [address] Dr. Shabnam Rae US SCROTUMon 01-05-2022 US [...] ALVINA CAICEDO Date: 2022-01-05 08:48 Normal [facility] CBC AUTO DIFFon 01-04-2022 BASO # 0.1 103/ul Normal 0.0-0.1 [facility] Comment on above: Performed By: #### C BC #### [facility] [address] [place] [address] Dr. Shabnam Rae Basophils/100 WBC (Bld) 0.8 % Normal 0.2-2.0 [facility] Comment on above: Performed By: #### C BC #### [facility] [address] [place] [address] Dr. Shabnam Rae EO # 0.1 103/ul Normal 0.0-0.7 [facility] Comment on above: Performed By: #### C BC #### [facility] [address] [place] [address] Dr. Shabnam Rae Eosinophils/100 WBC (Bld) 1.5 % Normal 0.9-7.0 [facility] Comment on above: Performed By: #### C BC #### [facility] [address] [place] [address] Dr. Shabnam Rae Erythrocyte distribution width (RBC) [Ratio] 12.8 % Normal 11.0-15.0 [facility] Comment on above: Performed By: #### C BC #### [facility] [address] [place] [address] Dr. Shabnam Rae Hematocrit (Bld) [Volume fraction] 40.3 % Critically low 42.0-54.0 [facility] Comment on above: Performed By: #### C BC #### [facility] [address] [place] [address] Dr. Shabnam Rae Hemoglobin (Bld) [Mass/Vol] 13.4 g/dL Critically low 14.0-18.0 [facility] Comment on above: Performed By: #### C BC #### [facility] [address] [address] [address] Shabnam Rae IG # 0.03 10e3/ul Normal 0.00-0.03 [facility] Comment on above: Performed By: #### C BC #### [facility] [address] [place] [address] Dr. Shabnam Rae IG % 0.5 % Normal 0.0-0.5 [facility] Comment on above: Performed By: #### C BC #### [facility] [address] [place] [address] Dr. Shabnam Rae LYMPH # 1.0 103/ul Critically low 1.2-3.8 [facility] Comment on above: Performed By: #### C BC #### [facility] [address] [place] [address] Dr. Shabnam Rae Lymphocytes/100 WBC (Bld) 16.4 % Critically low 20.5-60.0 [facility] Comment on above: Performed By: #### C BC #### [facility] [address] [place] [address] Dr. Shabnam Rae MANUAL DIFF REQ NO Normal [facility] Comment on above: Performed By: #### C BC #### [facility] [address] [place] [address] Dr. Shabnam Rae MCH (RBC) [Entitic mass] 29.5 pg Normal 25.9-34.0 [facility] Comment on above: Performed By: #### C BC #### [facility] [address] [place] [address] Dr. Shabnam Rae MCHC (RBC) [Mass/Vol] 33.3 g/dL Normal 29.9-35.2 [facility] Comment on above: Performed By: #### C BC #### [facility] [address] [place] [address] Dr. Shabnam Rae MCV (RBC) [Entitic vol] 88.8 fL Normal 80.0-94.0 [facility] Comment on above: Performed By: #### C BC #### [facility] [address] [place] [address] Dr. Shabnam Rae MONO # 0.6 103/ul Normal 0.3-0.8 [facility] Comment on above: Performed By: #### C BC #### [facility] [address] [place] [address] Dr. Shabnam Rae Monocytes/100 WBC (Bld) 9.6 % Normal 1.7-12.0 [facility] Comment on above: Performed By: #### C BC #### [facility] [address] [place] [address] Dr. Shabnam Rae NEUT # 4.4 103/ul Normal 1.4-6.5 [facility] Comment on above: Performed By: #### C BC #### [facility] [address] [place] [address] Dr. Shabnam Rae Neutrophils/100 WBC (Bld) 71.2 % Normal 43.0-75.0 [facility] Comment on above: Performed By: #### C BC #### [facility] [address] [place] [address] Dr. Shabnam Rae Platelet mean volume (Bld) [Entitic vol] 10.8 fL Normal 9.5-13.5 [facility] Comment on above: Performed By: #### C BC #### [facility] [address] [place] [address] Dr. Shabnam Rae PLT 158 103/ul Normal 150-450 [facility] Comment on above: Performed By: #### C BC #### [facility] [address] [place] [address] Dr. Shabnam Rae RBC 4.54 106/ul Critically low 4.70-6.10 [facility] Comment on above: Performed By: #### C BC #### [facility] [address] [place], [place] [address] Dr. Shabnam Rae WBC 6.2 103/ul Normal 4.0-11.0 [facility] Comment on above: Performed By: #### C BC #### [facility] [address] [place], [place] [address] ABD/PELV W CONon [...] MAYRA BERNAL Date: 2022-01-04 05:19 Normal [facility] CT PELVIS WO CONon 2 CT [...] scrotal ultrasound recommended. Electronically authenticated by: MANUEL FRANCE Date: 2022-01-04 08:54 Normal [facility] CULTURE URINEon 01-04-2022 CULTURE URINE Culture Observations: No growth Normal [facility] Comment on above: Performed By: #### P [facility] #### [facility] [address] [place] [address] Dr. Shabnam Rae Covid-19 PCR ([facility])on 12-13 SARS-CoV-2 (COVID-19) RNA ELIJAH+probe Ql (Unsp spec) Not detected Normal NOT DETECTED [facility] [...] Administration (FDA). This test was developed by [employer], [place], [place]. The performance characteristics of this test were validated by The [facility]. The results are not intended to be used as the sole means for clinical diagnosis or patient management decisions. The [facility] is authorized under Clinical Laboratory [...] for this test is supported by the Zo[employer] Technical Officer of Health and Human Service's declaration that [...] longer be used). Performed By: #### C VDTB #### [facility] [address] [place] [address] Dr. Shabnam Rae ER URINE PROFILEon 2 Bilirubin Ql (U) Negative Normal NEGATIVE [facility] Comment on above: Performed By: #### P SASC #### [facility] [address] [place] [address] Dr. Shabnam Rae Clarity (U) CLEAR Normal CLEAR [facility] Comment on above: Performed By: #### P SASC #### [facility] [address] [place] [address] Dr. Shabnam Rae Color (U) YELLOW Normal YELLOW [facility] Comment on above: Performed By: #### P SASC #### [facility] [address] [address] [address] Shabnam HERNANDEZ A micrscopic examination will be performed if indicated. Normal [facility] Comment on above: Performed By: #### P SASC #### [facility] [address] [address] [address] Shabnam Rae Glucose Ql (U) Negative Normal NEGATIVE [facility] Comment on above: Performed By: #### P SASC #### [facility] [address] [address] [address] Shabnam Rae Hemoglobin Ql (U) Negative Normal NEGATIVE [facility] Comment on above: Performed By: #### P SASC #### [facility] [address] [address] [address] Shabnam Rae Ketones Ql (U) Negative Normal NEGATIVE [facility] Comment on above: Performed By: #### P SASC #### [facility] [address] [address] [address] Shabnam Rae LEUKOCYTES Negative Normal NEGATIVE [facility] Comment on above: Performed By: #### P SASC #### [facility] [address] [address] [address] Shabnam Rae Nitrite Ql (U) Negative Normal NEGATIVE [facility] Comment on above: Performed By: #### P SASC #### [facility] [address] [place] [address] Dr. Shabnam Rae pH (U) 6.5 [pH] Normal 5-9 [facility] Comment on above: Performed By: #### P SASC #### [facility] [address] [address] [address] Shabnam Rae SPEC GRAVITY 1.010 Normal 1.005-<=1.025 [facility] Comment on above: Performed By: #### P SASC #### [facility] [address] [place] [address] Dr. Shabnam Rae UA PROTEIN Negative Normal NEGATIVE/ TRACE [facility] Comment on above: Performed By: #### P SASC #### [facility] [address] [address] [address] Shabnam Rae UR MICRO IND NOT INDICATED Normal [facility] Comment on above: Performed By: #### P SASC #### [facility] [address] [place] [address] Dr. Shabnam aRe Urobilinogen Qn (U) 0.2 {Sarai'U}/dL Normal 0.2 - 1. 0 [facility] Comment on above: Performed By: #### P SASC #### [facility] [address] [place] [address] Dr. Shabnam Rae LACTATE/LACTIC ACIDon 2021 Lactate [Moles/Vol] 1.0 mmol/L Normal 0.4-2.0 [facility] Comment on above: Performed By: #### P SASC #### [facility] [address] [place] [address] Dr. Shabnam Rae PROF CHEM 8 (BAS METB)on Anion gap [Moles/Vol] 10.0 mmol/L Normal [facility] Comment on above: Performed By: #### B MP #### [facility] [address] [place] [address] Dr. Shabnam Rae Calcium [Mass/Vol] 8.5 mg/dL Normal 8.5-10.1 [facility] Comment on above: Performed By: #### B MP #### [facility] [address] [place] [address] Dr. Shabnam Rae Chloride [Moles/Vol] 103 mmol/L Normal 98-107 [facility] Comment on above: Performed By: #### B MP #### [facility] [address] [place] [address] Dr. Shabnam Rae CO2 [Moles/Vol] 29.2 mmol/L Normal 21.0-32.0 [facility] Comment on above: Performed By: #### B MP #### [facility] [address] [place] [address] Dr. Shabnam Rae Creatinine [Mass/Vol] 1.25 mg/dL Normal 0.70-1.30 [facility] Comment on above: Performed By: #### B MP #### [facility] [address] [address] [address] Shabnam Rae EGFR-AF NAMIBIAN >60 Normal >=60 [facility] Comment on above: Performed By: #### B MP #### [facility] [address] [id number] Shabnam Rae EGFR-NON AF NAMIBIAN >60 Normal >=60 [facility] Comment on above: Performed By: #### B MP #### [facility] [address] [address] [address] Shabnam Rae Glucose [Mass/Vol] 132 mg/dL Critically high 74-106 [facility] Comment on above: Performed By: #### B MP #### [facility] [address] [address] [address] Shabnam Rae Potassium [Moles/Vol] 3.2 mmol/L Critically low 3.5-5.1 [facility] Comment on above: Performed By: #### B MP #### [facility] [address] [address] [address] Shabnam Rae Sodium [Moles/Vol] 139 mmol/L Normal 136-145 [facility] Comment on above: Performed By: #### B MP #### [facility] [address] [address] [address] Shabnam Rae Urea nitrogen [Mass/Vol] 19.0 mg/dL Critically high 7.0-18.0 [facility] Comment on above: Performed By: #### B MP #### [facility] [address] [address] [address] Shabnam Rae Urea nitrogen/Creatinine [Mass ratio] 15.2 mg/mg Normal [facility] Comment on above: Performed By: #### B MP #### [facility] [address] [place], [place] [id number] Dr. Shabnam Rae CERVICAL SPINE 2 OR 3 [facility] 07-06-2019 CERVICAL SPINE 2 OR 3 [facility] Department of Radiology [address] [place] [phone] Patient Name: MATTY GARCES : 1970 Sex: M Age: Race: White Pt. Location: 85 Patient Status: O Ordered Date: 07/06/2019 9:10:00 AM Completed Date: 07/06/2019 09:21 AM Requesting Provider: LUCIANO VIEIRA Attending Provider: LUCIANO VIEIRA Report Copy To: VENUS MENDEZ Signs & Symptoms: M48.02 Spinal stenosis, cervical region I10 History: [place] Comments: , STAT READ , STAT READ [...] findings. Electronically signed by:Bernice Hoyt. Transcribed by: [email or web address], User Resident: RADHA CHIN Electronically Signed by: BERNICE HOYT @ 07/06/2019 08:52 PM I personally read this/these film(s) with this resident Normal [facility] Comment on above: Order Comment: , STA T READ , STAT READ , , , Ordering Provider - LUCIANO VIEIRA MD , CERVICAL SPINE 2 OR 3 [facility] 04-06-2019 CERVICAL SPINE 2 OR 3 [facility] Department of Radiology [address] [place] [phone] Patient Name: MATTY GARCES : 1970 Sex: M Age: Race: White Pt. Location: Patient Status: O Ordered Date: 04/06/2019 7:10:00 AM Completed Date: 04/06/2019 07:28 AM Requesting Provider: LUCIANO VIEIRA Attending Provider: LUCIANO VIEIRA Report Copy To: VENUS MENDEZ Signs & Symptoms: CERVICAL DISC DISORDER, UNSPECIFIED CERVICAL REGION History: FAILED ALTHEA / ORDER SCANNED INTO RIS Comments: AP/LAT, ODONTOID PLEASE DO YENY'S VIEW FOLLOW UP HARDWARE AND ALIGNMENT, S/P ACDF, RECENT FALLS Exam: CERVICAL SPINE 2 OR 3 [facility] CERVICAL SPINE 2 OR 3 S [...] study. Electronically signed by:Bernice Hoyt. Transcribed by: [email or web address], User Resident: Electronically Signed by: BERNICE HOYT @ 04/06/2019 04:40 PM Normal [facility] Comment on above: Order Comment: AP/LA T, ODONTOID PLEASE DO SWIMMER'S VIEW FOLLOW UP HARDWARE AND ALIGNMENT, S/P ACDF, RECENT FALLS CERVICAL SPINE 2 OR 3 [facility] 02-17-2019 CERVICAL SPINE 2 OR 3 [facility] Department of Radiology [address] [place] [phone] Patient Name: MATTY GARCES : 1970 [...] concur with these findings. Electronically signed by:Bella Knig. Transcribed by: [email or web address], User Resident: EMILE TINAJERO Electronically Signed by: BELLA KING @ 02/20/2019 11:53 AM I personally read this/these film(s) with this resident Normal [facility] Comment on above: Order Comment: C-SPI NE 2 OR 3 VIEW POSTOP, EVALUATION HARDWARE AN ALIGNMENT BASIC METABOLIC PANELon 05-2 Calcium [Mass/Vol] 9.2 mg/dL Normal 8.6-10.3 [facility] Comment on above: Order Comment: No: D o not add to previous draw Performed By: #### 5 0103 #### [facility] [address] [place] [address], [place] Chloride [Moles/Vol] 101 mmol/L Normal 98-107 [facility] Comment on above: Order Comment: No: D o not add to previous draw Performed By: #### 5 0103 #### [facility] [address] [place] [address], [place] CO2 [Moles/Vol] 26 mmol/L Normal 21-31 [facility] Comment on above: Order Comment: No: D o not add to previous draw Performed By: #### 5 0103 #### [facility] [address] [place] [address], [place] Creatinine [Mass/Vol] 1.02 mg/dL Normal 0.70-1.30 [facility] Comment on above: Order Comment: No: D o not add to previous draw Performed By: #### 5 0103 #### [facility] [address] [place] [address], [place] GFR/1.73 sq M predicted among blacks MDRD (S/P/Bld) [Vol rate/Area] mL/min/{1.73_m2} Normal >60 [facility] Comment on above: Order Comment: No: D o not add to previous draw Performed By: #### 5 0103 #### [facility] [address] [place] [address], [place] GFR/1.73 sq M predicted among non-blacks MDRD (S/P/Bld) [Vol rate/Area] mL/min/{1.73_m2} Normal >60 [facility] Comment on above: Order Comment: No: D o not add to previous draw Performed By: #### 5 0103 #### [facility] [address] [place] [address], [place] Glucose [Mass/Vol] 124 mg/dL High 70-100 [facility] Comment on above: Order Comment: No: D o not add to previous draw Performed By: #### 5 0103 #### [facility] [address] [place] [address], [place] Potassium [Moles/Vol] 3.9 mmol/L Normal 3.5-5.1 [facility] Comment on above: Order Comment: No: D o not add to previous draw Performed By: #### 5 0103 #### [facility] [address] [place] [address], [place] Sodium [Moles/Vol] 137 mmol/L Normal 136-145 [facility] Comment on above: Order Comment: No: D o not add to previous draw Performed By: #### 5 0103 #### [facility] [address] [place] [address], [place] Urea nitrogen [Mass/Vol] 15 mg/dL Normal 7-25 [facility] Comment on above: Order Comment: No: D o not add to previous draw Performed By: #### 5 0103 #### [facility] [address] [place] [address], [place] CBC COMPLETE BLOOD COUNTon - Erythrocyte distribution width (RBC) [Ratio] 13.9 % Normal 11.5-15.0 [facility] Comment on above: Order Comment: No: D o not add to previous draw Performed By: #### 5 0103 #### [facility] [address] Hematocrit (Bld) [Volume fraction] 50.0 % Normal 39.0-50.0 [facility] Comment on above: Order Comment: No: D o not add to previous draw Performed By: #### 5 0103 #### [facility] [address] [place] [id number], [facility] Hemoglobin (Bld) [Mass/Vol] 16.0 g/dL Normal 13.0-17.0 [facility] Comment on above: Order Comment: No: D o not add to previous draw Performed By: #### 5 0103 #### [facility] [address] [facility] [place] [address], [facility] MCH (RBC) [Entitic mass] 27.5 pg Normal 27.0-33.0 [facility] Comment on above: Order Comment: No: D o not add to previous draw Performed By: #### 5 0103 #### [facility] [address] MCHC (RBC) [Mass/Vol] 32.0 g/dL Normal 32.0-35.0 [facility] Comment on above: Order Comment: No: D o not add to previous draw Performed By: #### 5 0103 #### [facility] [address] [facility] [place] [address], [facility] MCV (RBC) [Entitic vol] 85.9 fL Normal 82.0-98.0 [facility] Comment on above: Order Comment: No: D o not add to previous draw Performed By: #### 5 0103 #### [facility] [address] [facility] [place] [address], [facility] Nucleated RBC/100 WBC (Bld) [Ratio] 0 % Normal 0-0 [facility] Comment on above: Order Comment: No: D o not add to previous draw Performed By: #### 5 0103 #### [facility] [address] PLAT CNT 249 10*3/uL Normal 150-400 [facility] Comment on above: Order Comment: No: D o not add to previous draw Performed By: #### 5 0103 #### [facility] [address] [place] [address], [facility] RBC (Bld) [#/Vol] 5.82 10*6/uL High 4.20-5.[address] [facility] Comment on above: Order Comment: No: D o not add to previous draw Performed By: #### 5 0103 #### [facility] [address] [place] [address], [facility] WBC (Bld) [#/Vol] 15.85 10*3/uL High 4.00-10.60 [facility] Comment on above: Order Comment: No: D o not add to previous draw Performed By: #### 5 0103 #### [facility] [address] Operative Reporton 9 Operative Report MR#: [id number] [facility] Pt. Name: Matty Garces Room #: [id number] Discharge Date: Birthdate: 1970 OPERATIVE REPORT DATE OF SURGERY: 01/30/2019 SURGEON: Luciano Vieira M.D. 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 POSTOPERATIVE DIAGNOSIS: Failed instrumentation at C6-7 on the right. RIGGER: ADENIKE Lugo. ANESTHESIA: Endotracheal, Hogan. PROCEDURES: Redo [...] Vieira M.D. Date Trans: 01/31/2019 02:31 Eze/sasha [id number] cc: Venus Mendez M.D. [address] [place] [phone] Normal [facility] CERVICAL SPINE 2 OR 3 [facility] 01-30-2019 CERVICAL SPINE 2 OR 3 [facility] Department of Radiology [address] [place] [phone] Patient Name: MATTY GARCES : 1970 Sex: M Age: Race: White Pt. Location: Patient Status: O Ordered Date: 01/30/2019 7:05:00 AM Completed Date: 01/30/2019 04:12 PM Requesting Provider: LUCIANO VIEIRA Attending Provider: LUCIANO VIEIRA Report Copy To: Signs & Symptoms: C6-7 ACDF History: C6-7 ACDF Comments: C6-7 ACDF Exam: CERVICAL SPINE 2 OR 3 [facility] CERVICAL SPINE 2 OR 3 [facility] 01/30/2019 4:12 PM EDT SIGNS AND SYMPTOMS: C6-7 ACDF TECHNOLOGIST COMMENTS: Intra op ACDF C6-7 with , 30 sec of fluoro time used QUESTION FOR THE RADIOLOGIST: C6-7 ACDF PROTOCOLS: AP, Odontoid and Lateral views were obtained. COMPARISON: None FINDINGS: 5 images were obtained. Fluoroscopic time as utilized above. IMPRESSION: For documentation Electronically signed by:Justus Montano. Transcribed by: [email or web address], User Resident: Electronically Signed by: JUSTUS MONTANO @ 01/30/2019 04:18 PM Normal [facility] Comment on above: Order Comment: C6-7 ACDF POC GLUCOSE LABon 01-30-2019 Glucose [Mass/Vol] 106 mg/dL High 70-100 [facility] Comment on above: Performed By: #### 5 0103 #### [facility] [address] [facility]. [address] *MRSA/MSSA DNA NASALon 01-23 *MRSA/MSSA DNA NASAL Clinical Report: (D ) Specimen: NASAL SWAB Collected: 01/23/2019 15:02 Status: Final Last Updated: 01/23/2019 20:14 MSSA DNA (Final) Methicillin Susceptible Staphylococcus aureus DNA Detected MRSA DNA (Final) No Methicillin Resistant Staphylococcus aureus DNA Detected Normal [facility] Comment on above: Performed By: #### 5 0103 #### [facility] [address] APTTon 01-23-2019 aPTT Coag (Bld) [Time] 35.4 s High 25.0-35.0 [facility] Comment on above: Result Comment: ALL RESULTS [...] THIS PURPOSE. Performed By: #### 5 7307, 59587 #### [facility] [address] [facility]. [address] BASIC METABOLIC PANELon 01-11 Calcium [Mass/Vol] 9.5 mg/dL Normal 8.6-10.3 [facility] Comment on above: Performed By: #### 5 7307, 97201 #### [facility] [address] Chloride [Moles/Vol] 101 mmol/L Normal 98-107 [facility] Comment on above: Performed By: #### 5 7307, 85448 #### [facility] [address] [place] [address], [place] CO2 [Moles/Vol] 29 mmol/L Normal 21-31 [facility] Comment on above: Performed By: #### 5 73, 32408 #### [facility] [address] [place] [address], [place] Creatinine [Mass/Vol] 1.08 mg/dL Normal 0.70-1.30 [facility] Comment on above: Performed By: #### 5 7306, 76568 #### [facility] [address] [place] [address], [place] GFR/1.73 sq M predicted among blacks MDRD (S/P/Bld) [Vol rate/Area] mL/min/{1.73_m2} Normal >60 [facility] Comment on above: Performed By: #### 5 7306, 54238 #### [facility] [address] [place] [address], [place] GFR/1.73 sq M predicted among non-blacks MDRD (S/P/Bld) [Vol rate/Area] mL/min/{1.73_m2} Normal >60 [facility] Comment on above: Performed By: #### 5 7306, 09581 #### [facility] [address] [place] [address], [place] Glucose [Mass/Vol] 87 mg/dL Normal 70-100 [facility] Comment on above: Performed By: #### 5 7306, 37954 #### [facility] [address] [place] [address], [place] Potassium [Moles/Vol] 4.0 mmol/L Normal 3.5-5.1 [facility] Comment on above: Performed By: #### 5 7306, 04071 #### [facility] [address] [place] [address], [place] Sodium [Moles/Vol] 137 mmol/L Normal 136-145 [facility] Comment on above: Performed By: #### 5 7307, 65083 #### [facility] [address] Urea nitrogen [Mass/Vol] 12 mg/dL Normal 7-25 [facility] Comment on above: Performed By: #### 5 73Al, 09001 #### [facility] [address] CBC W/DIFFon 01-23-2019 ABS BASOPHILS 0.1 10*3/uL Normal 0.0-0.2 The [facility] Comment on above: Performed By: #### 5 73Al, 01898 #### [facility] [address] ABS IMM GRANS 0.0 10*3/uL Normal 0.0-0.2 The [facility] Comment on above: Performed By: #### 5 Al, 00521 #### [facility] [address] ABS NEUTROPHILS 5.3 10*3/uL Normal 1.6-7.6 The [facility] Comment on above: Performed By: #### 5 Al, 91118 #### [facility] [address] Basophils/100 WBC (Bld) 0.9 % Normal 0.0-1.0 [facility] Comment on above: Performed By: #### 5 73Al, 94779 #### [facility] [address] [place] [address], [facility] Eosinophils (Bld) [#/Vol] 0.2 10*3/uL Normal 0.0-0.5 [facility] Comment on above: Performed By: #### 5 73Al, 94709 #### [facility] [address] [place] [address], [facility] Eosinophils/100 WBC (Bld) 2.3 % Normal 0.0-6.0 [facility] Comment on above: Performed By: #### 5 7306, 87581 #### [facility] [address] Erythrocyte distribution width (RBC) [Ratio] 13.8 % Normal 11.5-15.0 [facility] Comment on above: Performed By: #### 7306, 74450 #### [facility] [address] [facility] [place] [address], [facility] Hematocrit (Bld) [Volume fraction] 49.6 % Normal 39.0-50.0 [facility] Comment on above: Performed By: #### 7306, 95210 #### [facility] [address] Hemoglobin (Bld) [Mass/Vol] 16.4 g/dL Normal 13.0-17.0 [facility] Comment on above: Performed By: #### 7306, 24436 #### [facility] [address] [place] [address], [facility] IMMATURE GRANS 0.5 % Normal 0.0-1.0 The [facility] Comment on above: Performed By: #### 5 7306, 32659 #### [facility] [address] [facility] [place] [address], [facility] Lymphocytes (Bld) [#/Vol] 1.2 10*3/uL Normal 1.2-4.0 [facility] Comment on above: Performed By: #### 5 7306, 26557 #### [facility] [address] [facility] [place] [address], [facility] Lymphocytes/100 WBC (Bld) 16.6 % Low 20.0-45.0 [facility] Comment on above: Performed By: #### 5 7306, 90003 #### [facility] [address] [place] [address], [facility] MCH (RBC) [Entitic mass] 27.8 pg Normal 27.0-33.0 [facility] Comment on above: Performed By: #### 5 7306, 49902 #### [facility] [address] [place] [address], [facility] MCHC (RBC) [Mass/Vol] 33.1 g/dL Normal 32.0-35.0 [facility] Comment on above: Performed By: #### 5 7306, 58791 #### [facility] [address] [place] [address], [facility] MCV (RBC) [Entitic vol] 84.2 fL Normal 82.0-98.0 [facility] Comment on above: Performed By: #### 5 7306, 85561 #### [facility] [address] [place] [address], [facility] Monocytes (Bld) [#/Vol] 0.7 10*3/uL Normal 0.1-1.0 [facility] Comment on above: Performed By: #### 5 7306, 35921 #### [facility] [address] [place] [address], [facility] MONOS 9.4 % Normal 5.0-12.0 [facility] Comment on above: Performed By: #### 5 7306, 65157 #### [facility] [address] [place] [address], [facility] Neutrophils/100 WBC (Bld) 70.3 % Normal 40.0-72.0 [facility] Comment on above: Performed By: #### 5 7306, 71482 #### [facility] [address] [place] [address], [facility] Nucleated RBC/100 WBC (Bld) [Ratio] 0 % Normal 0-0 [facility] Comment on above: Performed By: #### 5 7306, 84761 #### [facility] [address] [facility] [place] [address], [facility] PLAT CNT 235 10*3/uL Normal 150-400 The [facility] Comment on above: Performed By: #### 5 7307, 24250 #### [facility] [address] [facility] [place] [address], [facility] RBC (Bld) [#/Vol] 5.89 10*6/uL High 4.20-5.[address] [facility] Comment on above: Performed By: #### 5 7307, 23595 #### [facility] [address] [facility] [place] [address], [facility] WBC (Bld) [#/Vol] 7.48 10*3/uL Normal 4.00-10.[address] [facility] Comment on above: Performed By: #### 5 7307, 91704 #### [facility] [address] [facility] PROTHROMBIN TIMEon 9 INR Coag (PPP) [Relative time] 1.12 {INR} Normal 0.91-1.16 [facility] Comment on above: Result Comment: ACCC P [...] CHEST 1995;108:231S-246S. Performed By: #### 5 7307, 20302 #### [facility] [address] PT Coag (PPP) [Time] 14.4 s Normal 12.3-14.8 [facility] Comment on above: Result Comment: ALL RESULTS MUST BE INTERPRETED WITH RESPECT TO BLOOD DRAWING ARTIFACT OR DILUTION ERROR OF ANTICOAGULANT AT THE TIME OF SAMPLING. Performed By: #### 5 7307, 42502 #### [facility] [address] [facility]. [address] TYPE AND SCREENon 01-23-2019 ABO INTERPRETATION A Normal [facility] Comment on above: Performed By: #### 5 7307, 87320 #### [facility] [address] [facility] [address] RH INTERPRETATION Positive Normal The [facility] Comment on above: Performed By: #### 5 7307, 11495 #### [facility] [address] [facility]. [address] 3D CERVICAL SPINE WO CONT RASTon 01-12-2019 CT 3D CERVICAL SPINE WO CONTRAST [facility] Department of Radiology [address] [place] [phone] Patient Name: MATTY GARCES : 1970 Sex: M Age: Race: White Pt. Location: Patient Status: D Ordered Date: 01/10/2019 2:15:00 PM Completed Date: 01/12/2019 10:32 AM Requesting Provider: LUCIANO VIEIRA Attending Provider: LUCIANO VIEIRA Report Copy To: VENUS MENDEZ Signs & Symptoms: M48.02 Spinal stenosis, cervical region I10 History: Althea para auth # [id number] 01/10/19-02/09/19 [id number] *er Comments: Exam: CT 3D CERVICAL SPINE [...] incomplete Electronically signed by:Ten Garland. Transcribed by: [email or web address], User Resident: Electronically Signed by: TEN GARLAND @ 01/13/2019 09:18 AM Normal [facility] CERVICAL SPINE 2 OR 3 [facility] 01-05-2019 CERVICAL SPINE 2 OR 3 [facility] Department of Radiology [address] [place] [phone] Patient Name: MATTY GARCES : 1970 [...] , Exam: CERVICAL SPINE 2 OR 3 [facility] CERVICAL SPINE 2 OR 3 [facility] 01/05/2019 9:06 AM EDT SIGNS AND [...] findings. Electronically signed by:Ten Garland. Transcribed by: [email or web address], User Resident: SHELLY DELA CRUZ Electronically Signed by: TEN GARLAND @ 01/05/2019 12:37 PM I personally read this/these film(s) with this resident Normal [facility] Comment on above: Order Comment: , , = ========= , Ordering Provider - LUCIANO VIEIRA MD , CERVICAL SPINE 2 OR 3 [facility] 08-30-2018 CERVICAL SPINE 2 OR 3 [facility] Department of Radiology [address] [place] [phone] Patient Name: MATTY GARCES : 1970 [...] findings. Electronically signed by:Bella King. Transcribed by: [email or web address], User Resident: RYAN HEAD Electronically Signed by: BELLA KING @ 08/30/2018 05:45 PM I personally read this/these film(s) with this resident Normal [facility] Comment on above: Order Comment: , POS T OP XRAY AP/LAT ONLY , POST OP XRAY AP/LAT ONLY , , , Ordering Provider - LUCIANO VIEIRA MD , Operative Reporton 8 Operative Report MR#: [id number] I [facility] Pt. Name: Matty Garces Room #: [id number] Discharge Date: Birthdate: 1970 OPERATIVE REPORT DATE OF SURGERY: 08/17/2018 SURGEON: Luciano Vieira M.D. PREOPERATIVE DIAGNOSIS: Herniated cervical disk at C6-7. POSTOPERATIVE DIAGNOSIS: Herniated cervical disk at C6-7. RIGGER: ADENIKE Larios. ANESTHESIA: Endotracheal, Braida. PROCEDURE: Anterior [...] A Luciano Vieira M.D. Date Dict: 08/17/2018/12:31 Norma/Luciano Vieira M.D. Date Trans: 08/17/2018 11:25 P/sasha [id number] cc: Venus Mendez M.D. [address] [facility] Eze [facility] [phone] [place] [facility] CERVICAL SPINE 2 OR 3 [facility] 08-17-2018 CERVICAL SPINE 2 OR 3 [facility] Department of Radiology [address] [place] [phone] Patient Name: MATTY GARCES : 1970 [...] findings. Electronically signed by:Bernice Hoyt. Transcribed by: [email or web address], User Resident: EMILE TINAJERO Electronically Signed by: BERNICE HOYT @ 08/18/2018 01:06 PM I personally read this/these film(s) with this resident Normal [facility] Comment on above: Order Comment: C6-7 ACDF with POC GLUCOSE LABon 08-17-2018 Glucose [Mass/Vol] 113 mg/dL High 70-100 [facility] Comment on above: Performed By: #### 8 5499 #### [facility] [address] [place] [address], [facility] [place] RBC'S 2 UNITSon 08-17-2018 CROSSMATCH INTERP [address] [facility] Comment on above: Performed By: #### 8 [id number] #### [facility] [address] [place] [address], [facility] CROSSMATCH INTERP [address] [facility] Comment on above: Performed By: #### 8 6002 #### [facility] [address] [place] [address], [facility] PRODUCT CODE 1 E0336 Normal [facility] Comment on above: Performed By: #### 8 6002 #### [facility] [address] [place] [address], [facility] PRODUCT CODE 2 E0336 Normal [facility] [place] Comment on above: Performed By: #### 8 6002 #### [facility] [address] [place] [address], [facility] PRODUCT STATUS 1 RE Normal [facility] Comment on above: Result Comment: Resu lt changed by IF on 08/20/2018 07:48. The previous value was XM. Performed By: #### 8 6002 #### [facility] [address] [place] [address], [facility] PRODUCT STATUS 2 RE Normal [facility] Comment on above: Result Comment: Resu lt changed by IF on 08/20/2018 07:48. The previous value was XM. Performed By: #### 8 6002 #### [facility] [address] UNIT ABO 1 A Normal [facility] Comment on above: Performed By: #### 8 6002 #### [facility] [address] UNIT ABO 2 A Normal [facility] Comment on above: Performed By: #### 8 6002 #### [facility] [address] [facility] [address] UNIT ID 1 [id number] Normal [facility] Comment on above: Performed By: #### 8 6002 #### [facility] [address] [facility]. [address] UNIT ID 2 [id number] Normal [facility] Comment on above: Performed By: #### 8 6002 #### [facility] [address] [facility]. [address] UNIT RH 1 Positive Normal [facility] Comment on above: Performed By: #### 8 6002 #### [facility] [address] [facility]. [address] UNIT RH 2 Positive Normal [facility] Comment on above: Performed By: #### 8 6002 #### [facility] [address] [facility]. [address] *MRSA/MSSA CULTUREon 08-02- 018 *MRSA/MSSA CULTURE Clinical Report: (D) Specimen: NASAL SWAB Collected: 08/02/2018 12:37 Status: Final Last Updated: 08/03/2018 14:26 ISO (Final) No Methicillin Resistant Staphylococcus aureus Isolated (MRSA) ISO (Final) Methicillin Sensitive Staphylococcus aureus (MSSA) Isolated Normal [facility] Comment on above: Performed By: #### 3 1302 #### [facility] [address] APTTon 08-02-2018 aPTT Coag (Bld) [Time] 31.2 s Normal 25.0-35.0 [facility] Comment on above: Result Comment: ALL [...] THIS PURPOSE. Performed By: #### 5 7307, 52709 #### [facility] [address] [place] [address], [facility] BASIC METABOLIC PANELon 07-15 Calcium [Mass/Vol] 9.4 mg/dL Normal 8.6-10.3 [facility] Comment on above: Performed By: #### 0 0071 #### [facility] [address] [place] [address], [facility] Chloride [Moles/Vol] 103 mmol/L Normal 98-107 [facility] Comment on above: Performed By: #### 0 0071 #### [facility] [address] [place] [address], [facility] CO2 [Moles/Vol] 29 mmol/L Normal 21-31 [facility] Comment on above: Performed By: #### 0 0071 #### [facility] [address] [place] [address], [facility] Creatinine [Mass/Vol] 1.06 mg/dL Normal 0.70-1.30 [facility] Comment on above: Performed By: #### 0 0071 #### [facility] [address] [place] [address], [facility] GFR/1.73 sq M predicted among blacks MDRD (S/P/Bld) [Vol rate/Area] mL/min/{1.73_m2} Normal >60 [facility] Comment on above: Performed By: #### 0 0071 #### [facility] [address] [place] [address], [facility] GFR/1.73 sq M predicted among non-blacks MDRD (S/P/Bld) [Vol rate/Area] mL/min/{1.73_m2} Normal >60 [facility] Comment on above: Performed By: #### 0 0071 #### [facility] [address] [place] [address], [facility] Glucose [Mass/Vol] 84 mg/dL Normal 70-100 [facility] Comment on above: Performed By: #### 0 0071 #### [facility] [address] [place] [address], [facility] Potassium [Moles/Vol] 4.0 mmol/L Normal 3.5-5.1 [facility] Comment on above: Performed By: #### 0 0071 #### [facility] [address] [facility] [place] [address], [facility] Sodium [Moles/Vol] 140 mmol/L Normal 136-145 [facility] Comment on above: Performed By: #### 0 0071 #### [facility] [address] [facility] [place] [address], [facility] Urea nitrogen [Mass/Vol] 20 mg/dL Normal 7-25 [facility] Comment on above: Performed By: #### 0 0071 #### [facility] [address] [facility] [place] [address], [facility] CBC W/DIFFon 08-02-2018 ABS BASOPHILS 0.1 10*3/uL Normal 0.0-0.2 [facility] [place] Comment on above: Performed By: #### 5 0103 #### [facility] [address] [facility] [place] [address], [facility] ABS IMM GRANS 0.1 10*3/uL Normal 0.0-0.2 [facility] [place] Comment on above: Performed By: #### 5 0103 #### [facility] [address] [place] [address], [facility] ABS NEUTROPHILS 4.2 10*3/uL Normal 1.6-7.6 [facility] Comment on above: Performed By: #### 5 0103 #### [facility] [address] [facility] [place] [address], [facility] Basophils/100 WBC (Bld) 1.3 % High 0.0-1.0 [facility] Comment on above: Performed By: #### 5 0103 #### [facility] [address] [facility] [place] [address], [facility] Eosinophils (Bld) [#/Vol] 0.1 10*3/uL Normal 0.0-0.5 [facility] Comment on above: Performed By: #### 5 0103 #### [facility] [address] [facility] [place] [address], [facility] Eosinophils/100 WBC (Bld) 2.0 % Normal 0.0-6.0 [facility] Comment on above: Performed By: #### 5 0103 #### [facility] [address] [facility] [place] [address], [facility] Erythrocyte distribution width (RBC) [Ratio] 13.6 % Normal 11.5-15.0 [facility] Comment on above: Performed By: #### 5 0103 #### [facility] [address] [facility] [place] [address], [facility] Hematocrit (Bld) [Volume fraction] 44.3 % Normal 39.0-50.0 [facility] Comment on above: Performed By: #### 5 0103 #### [facility] [address] Hemoglobin (Bld) [Mass/Vol] 15.1 g/dL Normal 13.0-17.0 [facility] Comment on above: Performed By: #### 5 0103 #### [facility] [address] [facility] [place] [address], [facility] IMMATURE GRANS 1.1 % High 0.0-1.0 [facility] [place] Comment on above: Performed By: #### 5 0103 #### [facility] [address] [place] [address], [facility] Lymphocytes (Bld) [#/Vol] 1.2 10*3/uL Normal 1.2-4.0 [facility] Comment on above: Performed By: #### 5 0103 #### [facility] [address] [place] [address], [facility] Lymphocytes/100 WBC (Bld) 18.3 % Low 20.0-45.0 [facility] Comment on above: Performed By: #### 5 0103 #### [facility] [address] [place] [address], [facility] MCH (RBC) [Entitic mass] 29.0 pg Normal 27.0-33.0 [facility] Comment on above: Performed By: #### 5 0103 #### [facility] [address] [facility] [place] [address], [facility] MCHC (RBC) [Mass/Vol] 34.1 g/dL Normal 32.0-35.0 [facility] Comment on above: Performed By: #### 5 0103 #### [facility] [address] [place] [address], [facility] MCV (RBC) [Entitic vol] 85.0 fL Normal 82.0-98.0 [facility] Comment on above: Performed By: #### 5 3 #### [facility] [address] [facility] [place] [address], [facility] Monocytes (Bld) [#/Vol] 0.7 10*3/uL Normal 0.1-1.0 [facility] Comment on above: Performed By: #### 5 0103 #### [facility] [address] [place] [id number], [facility] MONOS 11.1 % Normal 5.0-12.0 [facility] Comment on above: Performed By: #### 5 0103 #### [facility] [address] [place] [address], [facility] Neutrophils/100 WBC (Bld) 66.2 % Normal 40.0-72.0 [facility] Comment on above: Performed By: #### 5 102 #### [facility] [address] [facility] [place] [id number], [facility] Nucleated RBC/100 WBC (Bld) [Ratio] 0 % Normal 0-0 [facility] Comment on above: Performed By: #### 5 102 #### [facility] [address] [facility] [place] [address], [facility] PLAT CNT 179 10*3/uL Normal 150-400 [facility] Comment on above: Performed By: #### 5 102 #### [facility] [address] [place] [id number], [facility] RBC (Bld) [#/Vol] 5.21 10*6/uL Normal 4.20-5.[address] [facility] Comment on above: Performed By: #### 5 3 #### [facility] [address] [facility] [place] [id number], [facility] WBC (Bld) [#/Vol] 6.39 10*3/uL Normal 4.00-10.[address] [facility] Comment on above: Performed By: #### 5 102 #### [facility] [address] [place] [address], [facility] CERVICAL SPINE 4 OR 5 VIEWSo n 08-02-2018 CERVICAL SPINE 4 OR 5 VIEWS [facility] Department of Radiology [address] [place] [address] Patient Name: MATTY GARCES : [...] findings. Electronically signed by:Bella King. Transcribed by: [email or web address], User Resident: EMILE TINAJERO Electronically Signed by: BELLA KING @ 08/03/2018 11:58 AM I personally read this/these film(s) with this resident Normal [facility] Comment on above: Order Comment: , PRE OP XRAY AP/LAT \EANDE\ FLEX/EX , PREOP XRAY AP/LAT \EANDE\ FLEX/EX , , , Ordering Provider - LUCIANO VIEIRA MD , PROTHROMBIN TIMEon 8 INR Coag (PPP) [Relative time] 1.15 {INR} Normal 0.91-1.16 [facility] Comment on above: Result Comment: ACCC P [...] CHEST 1995;108:231S-246S. Performed By: #### 5 7307, 25120 #### [facility] [address] [place] [address], [facility] PT Coag (PPP) [Time] 14.7 s Normal 12.3-14.8 [facility] Comment on above: Result Comment: ALL RESULTS MUST BE INTERPRETED WITH RESPECT TO BLOOD DRAWING ARTIFACT OR DILUTION ERROR OF ANTICOAGULANT AT THE TIME OF SAMPLING. Performed By: #### 5 7307, 24209 #### [facility] [address] [place] [address], [facility] TYPE AND SCREENon 08-02-2018 ABO INTERPRETATION A Normal [facility] Comment on above: Order Comment: 2 uni ts 2 units 2 units 2 units 2 units Performed By: #### 6 2586 #### [facility] [address] [facility] [place] [address], [facility] RH INTERPRETATION Positive Normal [facility] Comment on above: Order Comment: 2 uni ts 2 units 2 units 2 units 2 units Performed By: #### 6 2586 #### [facility] [address] [facility] [place] [address], [facility] URINALYSIS REFLEXon 08-02-20 18 Appearance (U) CLEAR Normal CLEAR [facility] [place] Comment on above: Performed By: #### 3 0904 #### [facility] [address] [place] [address], [facility] Bilirubin [Mass/Vol] Negative Normal NEGATIVE [facility] Comment on above: Performed By: #### 3 0993 #### [facility] [address] [facility] [place] [address], [facility] BLOOD Negative Normal NEGATIVE [facility] Comment on above: Performed By: #### 3 0970 #### [facility] [address] [place] [id number], [facility] Color (U) YELLOW Normal YELLOW [facility] Comment on above: Performed By: #### 3 0965 #### [facility] [address] [place] [address], [facility] Glucose [Mass/Vol] 150 mg/dL Abnormal NEGATIVE [facility] Comment on above: Performed By: #### 3 0965 #### [facility] [address] [place] [address], [facility] KETONE Negative Normal NEGATIVE [facility] Comment on above: Performed By: #### 3 0965 #### [facility] [address] [place] [address], [place] Negative Normal NEGATIVE [facility] Comment on above: Performed By: #### 3 0965 #### [facility] [address] [place] [address], [facility] MICRO NOT DONE negative chemical reactions unless requested in original order Normal [facility] Comment on above: Performed By: #### 3 0965 #### [facility] [address] [place] [address], [facility] Nitrite Ql (U) Negative Normal NEGATIVE [facility] [place] Comment on above: Performed By: #### 3 0965 #### [facility] [address] [place] [address], [facility] pH (Bld) 5.0 Normal 5.0-8.0 [facility] Comment on above: Performed By: #### 3 0965 #### [facility] [address] [place] [address], [facility] Protein (U) [Mass/Vol] Negative Normal NEGATIVE [facility] Comment on above: Performed By: #### 3 0965 #### [facility] [address] [place] [address], [place] SPEC GRAV 1.024 High 1.015-1.020 The [facility] Comment on above: Performed By: #### 3 0965 #### [facility] [address] Vital Signs Date Time Vital Sign Value Performing Clinician Molly bunn 02-25-2022 10:30-0400 Blood Pressure Location Viola Lue [facility] 02-25-2022 10:30-0400 Diastolic blood pressure 107 mm[Hg] Viola Lue [facility] 02-25-2022 10:30-0400 Heart rate 74 /min Viola Lue [facility] 02-25-2022 10:30-0400 Respiratory rate 16 /min Viola Lue [facility] 02-25-2022 10:30-0400 Systolic blood pressure 157 mm[Hg] Viola Lue [facility] Encounters Encounter Date Encounter Type Care Provider Facility Start: 01-10-2024 End: 01-11-2024 ambulatory VALENCIA Pate APLALEXI Not Available Start: 01-03-2024 End: 01-03-2024 ambulatory Trey Vallejo [facility] Work Phone: Start: 01-03-2024 End: 01-03-2024 Departed Referred DPM Trey Vallejo Work Phone: [facility] Start: 12-29-2023 End: 12-29-2023 ambulatory RUBÉN LOCO Not Available Start: 11-29-2023 End: 11-30-2023 ambulatory Diallo Beauchamp MD Facility:[facility] Start: 10-18-2023 End: 10-19-2023 ambulatory Diallo Beauchamp MD Facility:[facility] Start: 09-27-2023 End: 09-27-2023 ambulatory RUBÉN LOCO Not Available Start: 08-30-2023 End: 08-31-2023 ambulatory Diallo Beauchamp MD Facility:[facility] Start: 07-12-2023 End: 07-13-2023 ambulatory Diallo Beauchamp MD Facility:[facility] Start: 06-14-2023 End: 06-15-2023 ambulatory Diallo Beauchamp MD Facility:[facility] Start: 12-06-2022 End: 12-06-[address] VENUS MENDEZ . Facility: Start: 12-05-2022 Encounter for genera l adult medical examination without abnormal findings DR VENUS MENDEZ . [facility] Start: 12-01-2022 End: 12-02-2022 ambulatory [...] encounter procedure Viola Grullon [facility] Start: 01-04-2022 End: 01-05-[address] VENUS MENDEZ . Facility: Start: 01-30-2019 End: 02-01-2019 Evaluation and management of inpatient PROVIDER UNKNOWN Facility:[facility] Start: 08-17-2018 End: 08-18-2018 Patient encounter procedure PROVIDER UNKNOWN Facility:[facility] Procedures Date Procedure Procedure Detail Performing Clinician Start: 12-01-[address] FRANKLIN MENDEZ . Comment on above: Performed By: #### P [facility] #### [facility] [address] [place] [address] Dr. Shabnam Rae Start: 01-30-2019 FUSION CERV JT W INT BD FUS DEV, ANT APPR A COL, OPEN AZ[facility]INE [facility] Start: 01-30-2019 REMOVAL OF INT FIX F ROM CERVCAL VERTEBRA, OPEN APPROACH [facility] Start: 01-23-2019 Antibody screen PROVIDE R UNKNOWN Comment on above: Performed By: #### 5 7307, 18480 #### [facility] [address] Start: 08-17-2018 ANESTH SPINE CORD SURGERY [...] units Performed By: #### 6 2586 #### [facility] [address] Colonoscopy Viola Grullon Hemorrhoids (disorder) Viola Grullon Hernia of abdominal cavity (disorder) Violafranko Grullon Tonsillectomy Viola Mitchel Payers Date Payer Category Payer Self-pay [id number] 2022 Medicaid [id number] 2022 Unknown 1970 Unknown [id number] 2.16.8 [id number] 1969 Unknown [id number] 2.16.8 40.1.745396.3.579.2.647 1969 Unknown [id number] 2.16.84 0.1.118021.3.579.2.593 1969 Unknown [id number] 2.16.84 0.1.828357.3.579.2.593 1969 Unknown [id number] 2.16.84 0.1.072177.3.579.2.593 1969 Unknown [id number] 2.16.84 0.1.393178.3.579.2.593 1969 Unknown [id number] 2.16.84 0.1.297266.3.579.2.593 1969 Unknown [id number] 2.16.84 0.1.171405.3.579.2.593 1969 Unknown [id number] 2.16. 840.1.083157.3.579.2.196 1969 Unknown [id number] 2.16. 840.1.210543.3.579.2.196 1969 Unknown [id number] 2.16. 840.1.714059.3.579.2.196 1969 Unknown [id number] 2.16. 840.1.468282.3.579.2.196 1969 Unknown [id number] 2.16. 840.1.878803.3.579.2.196 1969 Unknown [id number] 2.16.84 0.1.263188.3.579.2.1259 1969 Unknown [id number] 2.16.84 0.1.135423.3.579.2.1259 1969 Unknown [id number] 2.16.84 0.1.202870.3.579.2.1259 1969 Unknown [id number] 2.16.84 0.1.035553.3.579.2.1259 1959 Unknown [id number] Unknown [id number] Unknown [id number] 2.16.8 40.1.212656.3.579.2.531 Social History Date Type Detail Facility Tobacco smoking status No Smokin g Status Entered [facility] Sex Assigned At Male [facility] Start: 05-15-2018 Tobacco smoking stat NHIS Ex-smoker (finding) [facility] Start: 1970 Sex Assigned At Male [facility] Functional Status Date Assessment Result Facility 02-25-2022 Functional Status N/A [facility] Progress note 06-09-2023 Note Date & Type Note Facility 06-09-2023 Note [facility] Continue GDMT- Diuretic therapy Monitor daily weights, I&O, fluid restriction 1.5-2L/day, renal function and electrolytes- [facility] Clinical Note 03-26-2022 Note Date & Type [...] by: ALVINA CAICEDO Date: 2022-03-26 10:47 [facility] Discharge instructions 02-25-2022 Note Date & [...] Watch the hydrocele for any changes. Take [id number] and prescription medicines only as told by [...] 02/17/2011 Document Revised: 09/10/2018 Document Reviewed: 09/10/2018 [employer] Patient Education 2020 [employer]. Follow Up Care 01/28/2022 10:36:35 With:Mitchel DELGADO, [place] Gregorio, URO Address: When: Unknown [facility] Evaluation + Plan note Note Date & Type Note Facility Evaluation + Plan note No data available for this section [facility] Evaluation note Note Date & Type Note Facility Evaluation note No assessment information availa [facility] Work Phone: Progress note Note Date & Type Note Facility Progress note No data available for this section [facility] Summary Purpose Family History No Family History Records FoundNo Family History Records FoundNo Family History Records FoundNo Family History Records FoundNo Family History Records FoundNo Family History Records FoundNo Family History Records Found Advance Directives No Advanced Directives Records Found Advance Directive Response Recorded Date/ Time Advance Directives No May 12:42pm Hospital Course Note MR#: [id number] [facility] Pt. Name: Matty Garces Admitted: 01/30/2019 Discharged: [...] and content) DATE CREATED AUTHOR 07/19/2019 [facility] DATE CREATED AUTHOR AUTHOR'S ORGANIZ ATION 02/27/2022 [facility] DATE CREATED AUTHOR AUTHOR'S ORGANIZ ATION 12/08/2022 [facility] DATE CREATED AUTHOR AUTHOR'S ORGANIZ ATION 06/17/2023 [facility] DATE CREATED AUTHOR AUTHOR'S ORGANIZ ATION 12/03/2023 [facility] DATE CREATED AUTHOR AUTHOR'S ORGANIZ ATION 01/15/2024 [facility] DATE CREATED AUTHOR AUTHOR'S ORGANIZ ATION 03/28/2024 [facility] ys[facility] Care Team (unrecognized sect ion and content) [...] BE BASED ON THE PRIMARY CLINICAL RECORDS. [facility] [employer] [facility]. provides no warranty or guarantee of the accuracy or completeness of information in this document.
== END 2024-04-04 14:20 | disposition home or self-care (01) ==
LOC: EC 14:20
PROVIDERS: PCP Family Medicine; Visit Provider Podiatrist Foot & Ankle Surgery
DX: S82.892D Other fracture of left lower leg, subsequent encounter for closed fracture with routine healing (principal)
CPT/HCPCS: 73610

== ENCOUNTER 2024-04-20 14:12 | Outpatient (OUT) | payer MEDICAID, SELFPAY ==
--- NOTE | 2024-04-20 | XR_ITS ---
The [address] [address] Patient Name: MATTY WADE MRN: [id number] date: 1970 Sex: M Assigned Patient Location: Current Patient Location: Accession/Order Number: [id number] Exam Date: 04/20/2024 14:13 Report Date: 04/24/2024 14:08 At the request of: BRAYDEN LEMONS Procedure: XR ankle LT min 3V PROCEDURE: XR ankle LT min 3V COMPARISON: 04/04/2024 HISTORY: LEFT ANKLE PAIN FINDINGS: BONES:Stable complex distal fibular fracture with internal fixation utilizing a lateral plate and screws. Fusion across the superior tibiofibular syndesmosis. No mechanical failure. Moderate enthesopathic spurring of the calcaneus at the Achilles insertion. Minimal interval bone formation SOFT TISSUES:Mild ankle soft tissue swelling EFFUSION:Ankle joint effusion OTHER: Negative. XR/XR ankle LT min 3V IMPRESSION: Stable healing fibular fracture with internal fixation Electronically authenticated by: ALVINA CAICEDO Date: 04/24/2024 14:08
--- OUTSIDE RECORDS SUMMARY | 2024-04-20 14:29 | XMS_ITS | CCD ---
Author Organization [facility] CliniSyct Care Team Providers Care Mud Mixer Helper Name Role Phone UNKNOWN, PROVIDER Admitting Unavailable UNKNOWN, PROVIDER Attending Unavailable VENUS MENDEZ Referring Unavailable VENUS MENDEZ Primary Care Unavailable [place] Procedure Practitioner Unavailab le UNKNOWN, PROVIDER Surgeon Unavailable [place] Procedure Practitioner Unavailab le SANDRA BILL Surgeon Unavailable UNKNOWN, PROVIDER Admitting Unavailable UNKNOWN, PROVIDER Attending Unavailable VENUS MENDEZ Referring Unavailable VENUS MENDEZ Primary Care Unavailable [place] Procedure Practitioner Unavailab le UNKNOWN, PROVIDER Surgeon Unavailable Venus Mendez Primary Care Physician [phone] DONOVAN Admitting Unavailable HOY [...] source) Aspartame Drug Allergy 08-17-20 18 [facility] Repository (1 source) avoid; Translations: [Unknown] Propensity to adverse reactions (disorder) 08-17-20 18 [facility] Repository (1 source) vitamin B12; Translations: [cyanocobalamin] Drug Allergy Unknown (qualifier value) [facility] (1 source) Acetaminophen / HYDROcodone Drug Allergy [facility] Repository (1 source) Corticosteroids Drug allergy (disorder) [facility] (1 source) fentaNYL Drug Allergy [facility] Rep[facility] (1 source) Misc-Food; Translations: [Misc-Food] Food allergy (disorder) [facility] Rep[facility] (1 source) Corticosteroids Drug allergy (disorder) 05-14-20 18 [facility] Repository Medications Current Medications Medication [...] Bedtime May 14, 2018 12:00am Vit D3-Folic Abuq-P6-P0-B12 (1 source) Start: 05-14-2018 take 1 tablet by mouth once daily Vit D3-Folic Ukcz-A1-T6-B12 Active 1 TAB PO Daily May 14, [...] source) [facility] (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; Translations: [NURSE CASE MANAGEMENT 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 ASPIRIN] Onset: 3 Episodic Other aftercare (1 source) Other terminal operator (current) drug therapy; Translations: [OTH NURSE CASE MANAGEMENT CURRENT DRUG THERAPY] Onset: 3 Episodic Other [...] Test Name Value Interpretation Reference Range Facility [facility] 01-03-2024 L Specimen: [id number] Received: 01/03/24 Status: [facility] Num: [id number] Spec Type: Surgical Subm Dr: Trey Vallejo DPM, MS Tissues: A Bone Fragments - Pathologic Fracture (PROXIMAL PHALANX RIGHT HALLU) Procedures: HE/2, Gross/Micro L5, Decalcification Age/ Patient Sex Location Account Attending Physician Matty Garces 53/M LABELL [id number] Trey Vallejo DPM, MS SPEC NUM: [id number] RECD: 01/03/24 STATUS: [facility] NUM: [id number] SOFY: 01/03/[address]: Trey Vallejo DPM, MS ENTERED: 01/03/24 [facility] DR: Ayesha Lundberg SPEC TYPE: Surgical [...] Sectioning reveals unremarkable yellow, spongy bone matrix. Multiple Games Dealer sections are submitted in A1 following decal. Clinical history: Non-pressure chronic ulcer . Right hallux IPJ arthroplasty with wound debridement and graft application TW Specimen: [id number] Received: 01/03/24 Status: [facility] Ophelia Num: [id number] Spec Type: Surgical Subm Dr: Trey Vallejo,DPM, MS Tissues: A Bone Fragments - Pathologic Fracture (PROXIMAL PHALANX RIGHT HALLU) Procedures: HE/2, Gross/Micro L5, Decalcification Patient: Matty Garces [id number] (Continued) Specimen: [id number] Received: 01/03/24 (Continued) Signed (signature on file) Viral Rae MD 01/06/24 1838 Specimen: [id number] Received: 01/03/24 Status: [facility] Jacinto Num: [id number] Spec Type: Surgical Subm Dr: Trey Vallejo,DPM, MS Tissues: A Bone Fragments - Pathologic Fracture (PROXIMAL PHALANX RIGHT HALLU) Procedures: HE/2, Gross/Micro L5, Decalcification Patient: Matty Garces [id number] (Continued) Specimen: [id number] Received: 01/03/24 (Continued) CPT Codes 42113 Specimen: [id number] Received: 01/03/24 Status: [facility] Jacinto Num: [id number] Spec Type: Surgical Subm Dr: Trey Vallejo,DPM, MS Tissues: A Bone Fragments - Pathologic Fracture (PROXIMAL PHALANX RIGHT HALLU) Procedures: HE/2, Gross/Micro L5, Decalcification Patient: MiliMatty Toni [id number] (Continued) Signed (signature on file) Viral Rae MD 01/06/24 1838 Normal [facility] CT CSPINE WO CONon CT [...] ANGEL SAID Date: 2022-12-06 06:37 Normal [facility] CT FACIAL BONES WO CONon [...] ANGEL SAID Date: 2022-12-06 06:41 Normal [facility] CT HEAD WO CONon 12-06-2022 [...] ANGEL SAID Date: 2022-12-06 06:39 Normal [facility] XR ELBOW RT MIN 3 VIEWSon XR ELBOW RT MIN 3 VIEWS Exam: Radiographs: XR ELBOW RT MIN 3 VIEWS Reason for exam: Elbow pain Comparison: None IMPRESSION: Right elbow degenerative changes. Olecranon spur. Remainder of the right elbow is unremarkable. Electronically authenticated by: MICHAEL CASANOVA Date: 2022-12-06 07:22 Normal [facility] XR FOREARM RT 2Von 3 XR FOREARM RT 2V Exam: Radiographs: XR FOREARM RT 2V Reason for exam: Forearm pain Comparison: None IMPRESSION: Mild degenerative changes in the right elbow and wrist. Right forearm is otherwise unremarkable. Electronically authenticated by: MICHAEL CASANOVA Date: 2022-12-06 08:07 Normal [facility] PSA, FREE AND TOTAL RATIOon 12-03-2022 % Free PSA 9.0 % Normal [facility] Comment on above: Result Comment: [...] men. Performed By: #### P SAFREE #### [facility] [address] [address] [address] hSabnam Rae Prostate specific Ag [Mass/Vol] 5.9 ng/mL Critically high 0.0-4.[address] [facility] Comment on above: Result Comment: Tanja FANGIA methodology. . According to the [place] [employer], Serum PSA should decrease and [...] disease. Performed By: #### P SAFREE #### [facility] [address] [address] [address] Shabnam Rae PSA, Free 0.53 ng/mL Normal N/A [facility] Comment on above: Result Comment: Tanja ayala ECLOSMEL methodology. Performed By: #### P SAFREE #### [facility] [address] [address] [address] Shabnam Rae INSULINon 12-02-2022 Insulin 20.2 uIU/mL Normal 2.6-24.[address] [facility] Comment on above: Performed By: #### P SASC #### [facility] [address] [address] [address] Shabnam Rae TESTOSTERONE, TOTALon 2022 Testosterone [Mass/Vol] 256 ng/dL Critically low 264-916 [facility] Comment on above: Result Comment: Adul t male reference interval is based on a population of healthy nonobese males (BMI <30) between 19 and 39 years old. adia Ch.al. JCEM 2017,102;6726-1844. PMID: 19254923. Performed By: #### P SASC #### [facility] [address] [place] [address] Dr. Shabnam Rae CBC AUTO DIFFon 12-01-2022 BASO # 0.1 103/ul Normal 0.0-0.[address] [facility] Comment on above: Performed By: #### P SASC #### [facility] [address] [address] [address] Shabnam Rae Basophils/100 WBC (Bld) 1.0 % Normal 0.2-2.[address] [facility] Comment on above: Performed By: #### P SASC #### [facility] [address] [address] [address] Shabnam Rae EO # 0.1 103/ul Normal 0.0-0.7 [facility] Comment on above: Performed By: #### P SASC #### [facility] [address] [address] [address] Shabnam Rae Eosinophils/100 WBC (Bld) 1.8 % Normal 0.9-7.0 [facility] Comment on above: Performed By: #### P SASC #### [facility] [address] [place] [address] Dr. Shabnam Rae Erythrocyte distribution width (RBC) [Ratio] 14.8 % Normal 11.0-15.0 [facility] Comment on above: Performed By: #### P SASC #### [facility] [address] [place] [address] Dr. Shabnam Rae Hematocrit (Bld) [Volume fraction] 49.9 % Normal 42.0-54.[address] [facility] Comment on above: Performed By: #### P SASC #### [facility] [address] [address] [address] Shabnam Rae Hemoglobin (Bld) [Mass/Vol] 16.0 g/dL Normal 14.0-18.[address] [facility] Comment on above: Performed By: #### P SASC #### [facility] [address] [address] [address] Shabnam Rae IG # 0.04 10e3/ul Critically high 0.00-0.03 [facility] Comment on above: Performed By: #### P SASC #### [facility] [address] [place] [address] Dr. Shabnam Rae IG % 0.6 % Critically high 0.0-0.5 [facility] Comment on above: Performed By: #### P SASC #### [facility] [address] [address] [address] Shabnam Rae LYMPH # 1.0 103/ul Critically low 1.2-3.8 [facility] Comment on above: Performed By: #### P SASC #### [facility] [address] [place] [address] Dr. Shabnam Rae Lymphocytes/100 WBC (Bld) 16.2 % Critically low 20.5-60.[address] [facility] Comment on above: Performed By: #### P SASC #### [facility] [address] [address] [address] Shabnam Rae MANUAL DIFF REQ NO Normal [facility] Comment on above: Performed By: #### P SASC #### [facility] [address] [address] [address] Shabnam Rae MCH (RBC) [Entitic mass] 27.7 pg Normal 25.9-34.[address] [facility] Comment on above: Performed By: #### P SASC #### [facility] [address] [address] [address] Shabnam Rae MCHC (RBC) [Mass/Vol] 32.1 g/dL Normal 29.9-35.[address] [facility] Comment on above: Performed By: #### P SASC #### [facility] [address] [address] [address] Shabnam Rae MCV (RBC) [Entitic vol] 86.3 fL Normal 80.0-94.[address] [facility] Comment on above: Performed By: #### P SASC #### [facility] [address] [place] [address] Dr. Shabnam Rae MONO # 0.5 103/ul Normal 0.3-0.[address] [facility] Comment on above: Performed By: #### P SASC #### [facility] [address] [place] [address] Dr. Shabnam Rae Monocytes/100 WBC (Bld) 7.6 % Normal 1.7-12.[address] [facility] Comment on above: Performed By: #### P SASC #### [facility] [address] [place] [address] Dr. Shabnam Rae NEUT # 4.6 103/ul Normal 1.4-6.[address] [facility] Comment on above: Performed By: #### P SASC #### [facility] [address] [place] [address] Dr. Shabnam Rae Neutrophils/100 WBC (Bld) 72.8 % Normal 43.0-75.[address] [facility] Comment on above: Performed By: #### P SASC #### [facility] [address] [place] [address] Dr. Shabnam Rae Platelet mean volume (Bld) [Entitic vol] 9.8 fL Normal 9.5-13.5 [facility] Comment on above: Performed By: #### P SASC #### [facility] [address] [place] [address] Dr. Shabnam Rae PLT 203 103/ul Normal 150-450 [facility] Comment on above: Performed By: #### P SASC #### [facility] [address] [place] [address] Dr. Shabnam Rae RBC 5.78 106/ul Normal 4.70-6.[address] [facility] Comment on above: Performed By: #### P SASC #### [facility] [address] [place] [address] Dr. Shabnam Rae WBC 6.3 103/ul Normal 4.0-11.[address] [facility] Comment on above: Performed By: #### P SASC #### [facility] [address] [place] [address] Dr. Shabnam Rae FREE THYROXINE INDEX T7on FTI 2.05 Normal 1.30-4.[address] [facility] Comment on above: Performed By: #### T SH, CMP, LIPID, T7, URIC #### [facility] [address] [place] [address] Dr. Shabnam Rae T3U 33.0 % Normal 33.0-40.[address] [facility] Comment on above: Performed By: #### T SH, CMP, LIPID, T7, URIC #### [facility] [address] [place] [address] Dr. Shabnam Rae T4 [Mass/Vol] 6.20 ug/dL Normal 4.50-12.10 [facility] Comment on above: Performed By: #### T SH, CMP, LIPID, T7, URIC #### [facility] [address] [place] [address] Dr. Shabnam Rae GLYCOHEMOGLOBIN A1Con 2022 ADA RECOMMENDATION SEE BELOW Normal [facility] Comment on above: Result Comment: ADA RECOMMENDED LIMIT 4.0 - 6.0 ADA THERAPEUTIC TARGET < 7.0 ACTION SUGGESTED > 7.0 Performed By: #### P SASC #### [facility] [address] [place] [address] Dr. Shabnam Rae Glucose [Mass/Vol] 114 mg/dL Normal [facility] Comment on above: Performed By: #### P SASC #### [facility] [address] [place] [address] Dr. Shabnam Rae HbA1c (Bld) [Mass fraction] 5.6 % Normal 4.5-6.2 [facility] Comment on above: Performed By: #### P SASC #### [facility] [address] [address] [address] Shabnam Rae LIPID PROFILEon 12-01-2022 CHOL-HDL RATIO NORM SEE BELOW Normal [facility] Comment on above: Result Comment: 3.3 - 4.4 LOW RISK 4.4 - 7.1 AVERAGE RISK 7.1 - 11.0 MODERATE RISK >11.0 HIGH RISK Performed By: #### T SH, CMP, LIPID, T7, URIC #### [facility] [address] [address] [address] Shabnam Rae Cholesterol [Mass/Vol] 176 mg/dL Normal <=[address] [facility] Comment on above: Performed By: #### T SH, CMP, LIPID, T7, URIC #### [facility] [address] [address] [address] Shabnam Rae Cholesterol in HDL [Mass/Vol] 48 mg/dL Normal 40-[address] [facility] Comment on above: Performed By: #### T SH, CMP, LIPID, T7, URIC #### [facility] [address] [address] [address] Shabnam Rae Cholesterol in LDL [Mass/Vol] 108.2 mg/dL Normal [facility] Comment on above: Performed By: #### T SH, CMP, LIPID, T7, URIC #### [facility] [address] [address] [address] Shabnam Rae Cholesterol.total/Ch olesterol in HDL [Mass ratio] 3.7 {ratio} Normal [facility] Comment on above: Performed By: #### T SH, CMP, LIPID, T7, URIC #### [facility] [address] [address] [address] Shabnam Rae HDL NORMAL > or = 60 mg/dl - LOW CARDIOVASCULAR RISK <40 mg/dl - HIGH CARDIOVASCULAR RISK Normal [facility] Comment on above: Performed By: #### T SH, CMP, LIPID, T7, URIC #### [facility] [address] [address] [address] Shabnam Rae LDL CALC NORMAL SEE BELOW Normal [facility] Comment on above: Result Comment: <100 mg/dl OPTIMAL 100 - 129 mg/dl NEAR OR ABOVE OPTIMAL 130 - 159 mg/dl BORDERLINE HIGH 160 - 189 mg/dl HIGH >190 mg/dl VERY HIGH Performed By: #### T SH, CMP, LIPID, T7, URIC #### [facility] [address] [address] [address] Shabnam Rae Triglyceride [Mass/Vol] 99 mg/dL Normal <=[address] [facility] Comment on above: Performed By: #### T SH, CMP, LIPID, T7, URIC #### [facility] [address] [address] [address] Shabnam Rae VLDL CALC 19.8 mg/dL Normal [facility] Comment on above: Performed By: #### T SH, CMP, LIPID, T7, URIC #### [facility] [address] [address] [address] Shabnam Rae PROF 14(COMP METB)on 023 Albumin [Mass/Vol] 4.1 g/dL Normal 3.4-5.0 [facility] Comment on above: Performed By: #### T SH, CMP, LIPID, T7, URIC #### [facility] [address] [address] [address] Shabnam Rae Albumin/Globulin [Mass ratio] 1.1 {ratio} Normal [facility] Comment on above: Performed By: #### T SH, CMP, LIPID, T7, URIC #### [facility] [address] [address] [address] Shabnam Rae ALP [Catalytic activity/Vol] 101 U/L Normal 46-116 [facility] Comment on above: Performed By: #### T SH, CMP, LIPID, T7, URIC #### [facility] [address] [address] [address] Shabnam Rae ALT [Catalytic activity/Vol] 26 U/L Normal 16-[address] [facility] Comment on above: Performed By: #### T SH, CMP, LIPID, T7, URIC #### [facility] [address] [address] [address] Shabnam Rae Anion gap [Moles/Vol] 10.1 mmol/L Normal [facility] Comment on above: Performed By: #### T SH, CMP, LIPID, T7, URIC #### [facility] [address] [place] [address] Dr. Shabnam Rae AST [Catalytic activity/Vol] 19 U/L Normal 15-[address] [facility] Comment on above: Performed By: #### T SH, CMP, LIPID, T7, URIC #### [facility] [address] [place] [address] Dr. Shabnam Rae Bilirubin [Mass/Vol] 0.8 mg/dL Normal 0.2-1.[address] [facility] Comment on above: Performed By: #### T SH, CMP, LIPID, T7, URIC #### [facility] [address] [place] [address] Dr. Shabnam Rae Calcium [Mass/Vol] 9.5 mg/dL Normal 8.5-10.1 [facility] Comment on above: Performed By: #### T SH, CMP, LIPID, T7, URIC #### [facility] [address] [place] [address] Dr. Shabnam Rae Chloride [Moles/Vol] 102 mmol/L Normal 98-107 [facility] Comment on above: Performed By: #### T SH, CMP, LIPID, T7, URIC #### [facility] [address] [place] [address] Dr. Shabnam Rae CO2 [Moles/Vol] 32.4 mmol/L Critically high 21.0-32.0 [facility] Comment on above: Performed By: #### T SH, CMP, LIPID, T7, URIC #### [facility] [address] [place] [address] Dr. Shabnam Rae Creatinine [Mass/Vol] 1.00 mg/dL Normal 0.70-1.[address] [facility] Comment on above: Performed By: #### T SH, CMP, LIPID, T7, URIC #### [facility] [address] [place] [address] Dr. Shabnam Rae EGFR-AF BENINESE >60 Normal >=60 [facility] Comment on above: Performed By: #### T SH, CMP, LIPID, T7, URIC #### [facility] [address] [address] [address] Shabnam Rae EGFR-NON AF BENINESE >60 Normal >=60 [facility] Comment on above: Performed By: #### T SH, CMP, LIPID, T7, URIC #### [facility] [address] [place] [address] Dr. Shabnam Rae Globulin (S) [Mass/Vol] 3.8 g/dL Normal [facility] Comment on above: Performed By: #### T SH, CMP, LIPID, T7, URIC #### [facility] [address] [place] [address] Dr. Shabnam Rae Glucose [Mass/Vol] 94 mg/dL Normal 74-106 [facility] Comment on above: Performed By: #### T SH, CMP, LIPID, T7, URIC #### [facility] [address] [place] [address] Dr. Shabnam Rae Potassium [Moles/Vol] 3.5 mmol/L Normal 3.5-5.[address] [facility] Comment on above: Performed By: #### T SH, CMP, LIPID, T7, URIC #### [facility] [address] [place] [address] Dr. Shabnam Rae Protein [Mass/Vol] 7.9 g/dL Normal 6.4-8.2 [facility] Comment on above: Performed By: #### T SH, CMP, LIPID, T7, URIC #### [facility] [address] [address] [address] Shabnam Rae Sodium [Moles/Vol] 141 mmol/L Normal 136-145 [facility] Comment on above: Performed By: #### T SH, CMP, LIPID, T7, URIC #### [facility] [address] [place] [address] Dr. Shabnam Rae Urea nitrogen [Mass/Vol] 15.0 mg/dL Normal 7.0-18.[address] [facility] Comment on above: Performed By: #### T SH, CMP, LIPID, T7, URIC #### [facility] [address] [place] [address] Dr. Shabnam Rae Urea nitrogen/Creatinine [Mass ratio] 15.0 mg/mg Normal [facility] Comment on above: Performed By: #### T SH, CMP, LIPID, T7, URIC #### [facility] [address] [place] [address] Dr. Shabnam Rae TSHon 12-01-2022 TSH 1.504 uIU/mL Normal 0.358-3.740 [facility] Comment on above: Performed By: #### T SH, CMP, LIPID, T7, URIC #### [facility] [address] [place] [address] Dr. Shabnam Rae URIC ACID SERUMon 12-01-2022 Urate [Mass/Vol] 6.9 mg/dL Normal 3.5-7.2 [facility] Comment on above: Performed By: #### T SH, CMP, LIPID, T7, URIC #### [facility] [address] [place] [address] Dr. Shabnam Rae TESTOSTERONE, TOTALon 2021 Testosterone [Mass/Vol] 244 ng/dL Critically low 264-[address] [facility] Comment on above: Result Comment: Adul t male reference interval is based on a population of healthy nonobese males (BMI <30) between 19 and 39 years old. Dima et.al. JCEM 2017,102;9141-3217. PMID: 63512764. Performed By: #### P SAFREE #### [facility] [address] [place] [address] Dr. Shabnam Rae TESTOSTERONE, FREE,DIRECT, T OTALon 03-16-2022 Free Testosterone(Direct) 2.1 pg/mL Critically low 7.2-24.0 [facility] Comment on above: Result Comment: Perf ormed at: BN Performed By: #### C VDTBH #### [facility] [address] [place] [address] Dr. Shabnam Rae Testosterone [Mass/Vol] 252 ng/dL Critically low 264-[address] [facility] Comment on above: Result Comment: Adul t male reference interval is based on a population of healthy nonobese males (BMI <30) between 19 and 39 years old. adia Ch.al. JCEM 2017,102;6457-1868. PMID: 81394859. Performed at: Performed By: #### C [facility] #### [facility] [address] [address] [address] Shabnam Rae Formson 02-26-2022 Forms [id number] 7#1.00CD:127 Normal [facility] Screenson 02-26-2022 Screens [id number] 7#1.00CD:127 Normal [facility] Screens [id number] #1.00CD:127 Normal [facility] Urology Office/Clinic Noteon 02-26-2022 Urology Office/Clinic [...] without lower urinary tract symptoms) IPSS- 5.5 [id number] UA- clear/negative no signs of any infections. [...] qualifying data (more content not included)... Normal [facility] Comment on above: Result Comment: Elec tronically Signed By: Viola Grullon MD\.br\Date and Time Signed: 02/26/22 00:20 EDT\.br\Electronically Co-Signed By: Helen Leung\.br\Date and Time Co-Signed: 02/25/22 11:16 EDT Ambulatory Visit Summaryon 0 02-25-2022 Ambulatory Visit Summary MATTY GARCES :1970 Visit Date:02/25/2022 Ambulatory Visit Instructions Your Diagnosis Hydrocele Varicocele BPH without urinary obstruction Tests Performed Urnls Dip Stick Auto w/o Microscopy POC 39025 Your Care Team Attending Physician - Viola [...] Urnls Dip Stick Auto w/o Microscopy POC 61292 (02/25/2022) Bilirubin Urine Dipstick - Negative Blood Urine Dipstick - Negative Glucose Urine Dipstick - Negative Ketones Urine Dipstick - Negative Leukocytes Urine Dipstick - Negative Nitrite Urine Dipstick - Negative Protein Urine Dipstick - Negative Specific [place] Urine Dipstick - >=1.030 Urine Appearance Urine [...] the hydrocele for any changes. ? Take ykzx-stn-umebyxe and prescription medicines only as told by [...] t (more content not included)... Normal [facility] Patient Educationon 02-26-20 Patient Education Urology [...] the hydrocele for any changes. ? Take txbb-hdr-rzzcszm and prescription medicines only as told by [...] Reviewed: 09/10/2018 Elsevier Patient Education ? 2019 [employer] [facility] ED Note-Physicianon 02-04-20 ED Note-Physician [id number] 62#1.00CD:127 [facility] RAD - Ultrasound Reporton RAD - Ultrasound Report [id number] #1.00CD:127 Normal [facility] RAD - CT Reporton 02-02-2022 RAD - CT Report [id number] 55#1.00CD:127 Normal [facility] RAD - CT Report [id number] 75#1.00CD:127 Normal [facility] CBC AUTO DIFFon 01-05-2022 BASO # 0.0 103/ul Normal 0.0-0.[address] [facility] Comment on above: Performed By: #### P SAFREE #### [facility] [address] [place] [address] Dr. Shabnam Rae Basophils/100 WBC (Bld) 0.6 % Normal 0.2-2.[address] [facility] Comment on above: Performed By: #### P SAFREE #### [facility] [address] [place] [address] Dr. Shabnam Rae EO # 0.1 103/ul Normal 0.0-0.[address] [facility] Comment on above: Performed By: #### P SAFREE #### [facility] [address] [place] [address] Dr. Shabnam Rae Eosinophils/100 WBC (Bld) 2.1 % Normal 0.9-7.[address] [facility] Comment on above: Performed By: #### P SAFREE #### [facility] [address] [place] [address] Dr. Shabnam Rae Erythrocyte distribution width (RBC) [Ratio] 13.1 % Normal 11.0-15.[address] [facility] Comment on above: Performed By: #### P SAFREE #### [facility] [address] [place] [address] Dr. Shabnam Rae Hematocrit (Bld) [Volume fraction] 43.1 % Normal 42.0-54.[address] [facility] Comment on above: Performed By: #### P SAFREE #### [facility] [address] [place] [address] Dr. Shabnam Rae Hemoglobin (Bld) [Mass/Vol] 13.7 g/dL Critically low 14.0-18.0 [facility] Comment on above: Performed By: #### P SAFREE #### [facility] [address] [address] [address] Shabnam Rae IG # 0.04 10e3/ul Critically high 0.00-0.03 [facility] Comment on above: Performed By: #### P SAFREE #### [facility] [address] [address] [address] Shabnam Rae IG % 0.6 % Critically high 0.0-0.5 [facility] Comment on above: Performed By: #### P SAFREE #### [facility] [address] [address] [address] Shabnam Rae LYMPH # 0.9 103/ul Critically low 1.2-3.8 [facility] Comment on above: Performed By: #### P SAFREE #### [facility] [address] [address] [address] Shabnam Rae Lymphocytes/100 WBC (Bld) 13.1 % Critically low 20.5-60.[address] [facility] Comment on above: Performed By: #### P SAFREE #### [facility] [address] [place] [address] Dr. Shabnam Rae MANUAL DIFF REQ NO Normal [facility] Comment on above: Performed By: #### P SAFREE #### [facility] [address] [address] [address] Shabnam Rae MCH (RBC) [Entitic mass] 29.5 pg Normal 25.9-34.[address] [facility] Comment on above: Performed By: #### P SAFREE #### [facility] [address] [address] [address] Shabnam Rae MCHC (RBC) [Mass/Vol] 31.8 g/dL Normal 29.9-35.2 [facility] Comment on above: Performed By: #### P SAFREE #### [facility] [address] [address] [address] Shabnam Rae MCV (RBC) [Entitic vol] 92.9 fL Normal 80.0-94.0 [facility] Comment on above: Performed By: #### P SAFREE #### [facility] [address] [place] [address] Dr. Shabnam Rae MONO # 0.4 103/ul Normal 0.3-0.8 [facility] Comment on above: Performed By: #### P SAFREE #### [facility] [address] [place] [address] Dr. Shabnam Rae Monocytes/100 WBC (Bld) 5.4 % Normal 1.7-12.0 [facility] Comment on above: Performed By: #### P SAFREE #### [facility] [address] [place] [address] Dr. Shabnam Rae NEUT # 5.2 103/ul Normal 1.4-6.[address] [facility] Comment on above: Performed By: #### P SAFREE #### [facility] [address] [place] [address] Dr. Shabnam Rae Neutrophils/100 WBC (Bld) 78.2 % Critically high 43.0-75.0 [facility] Comment on above: Performed By: #### P SAFREE #### [facility] [address] [place] [address] Dr. Shabnam Rae Platelet mean volume (Bld) [Entitic vol] 10.9 fL Normal 9.5-13.5 [facility] Comment on above: Performed By: #### P SAFREE #### [facility] [address] [place] [address] Dr. Shabnam Rae PLT 153 103/ul Normal 150-450 [facility] Comment on above: Performed By: #### P SAFREE #### [facility] [address] [place] [address] Dr. Shabnam Rae RBC 4.64 106/ul Critically low 4.70-6.10 [facility] Comment on above: Performed By: #### P SAFREE #### [facility] [address] [place] [address] Dr. Shabnam Rae WBC 6.6 103/ul Normal 4.0-11.[address] [facility] Comment on above: Performed By: #### P SAFREE #### [facility] [address] [place] [address] Dr. Shabnam Rae CRPon 01-05-2022 CRP 0.9 mg/dL Normal <=1.[address] [facility] Comment on above: Performed By: #### P SAFREE #### [facility] [address] [place] [address] Dr. Shabnam Rae PROF 14(COMP METB)on 022 Albumin [Mass/Vol] 3.6 g/dL Normal 3.4-5.0 [facility] Comment on above: Performed By: #### P SAFREE #### [facility] [address] [place] [address] Dr. Shabnam Rae Albumin/Globulin [Mass ratio] 1.0 {ratio} Normal [facility] Comment on above: Performed By: #### P SAFREE #### [facility] [address] [place] [address] Dr. Shabnam Rae ALP [Catalytic activity/Vol] 114 U/L Normal 46-116 [facility] Comment on above: Performed By: #### P SAFREE #### [facility] [address] [place] [address] Dr. Shabnam Rae ALT [Catalytic activity/Vol] 26 U/L Normal 16-63 [facility] Comment on above: Performed By: #### P SAFREE #### [facility] [address] [place] [address] Dr. Shabnam Rae Anion gap [Moles/Vol] 9.3 mmol/L Normal [facility] Comment on above: Performed By: #### P SAFREE #### [facility] [address] [place] [address] Dr. Shabnam Rae AST [Catalytic activity/Vol] 19 U/L Normal 15-[address] [facility] Comment on above: Performed By: #### P SAFREE #### [facility] [address] [place] [address] Dr. Shabnam Rae Bilirubin [Mass/Vol] 0.5 mg/dL Normal 0.2-1.[address] [facility] Comment on above: Performed By: #### P SAFREE #### [facility] [address] [place] [address] Dr. Shabnam Rae Calcium [Mass/Vol] 8.9 mg/dL Normal 8.5-10.1 [facility] Comment on above: Performed By: #### P SAFREE #### [facility] [address] [address] [address] Shabnam Rae Chloride [Moles/Vol] 106 mmol/L Normal 98-[address] [facility] Comment on above: Performed By: #### P SAFREE #### [facility] [address] [place] [address] Dr. Shabnam Rae CO2 [Moles/Vol] 30.7 mmol/L Normal 21.0-32.0 [facility] Comment on above: Performed By: #### P SAFREE #### [facility] [address] [place] [address] Dr. Shabnam Rae Creatinine [Mass/Vol] 1.15 mg/dL Normal 0.70-1.[address] [facility] Comment on above: Performed By: #### P SAFREE #### [facility] [address] [place] [address] Dr. Shabnam Rae EGFR-AF BENINESE >60 Normal >=60 [facility] Comment on above: Performed By: #### P SAFREE #### [facility] [address] [place] [address] Dr. Shabnam Rae EGFR-NON AF BENINESE >60 Normal >=[address] [facility] Comment on above: Performed By: #### P SAFREE #### [facility] [address] [place] [address] Dr. Shabnam Rae Globulin (S) [Mass/Vol] 3.6 g/dL Normal [facility] Comment on above: Performed By: #### P SAFREE #### [facility] [address] [place] [address] Dr. Shabnam Rae Glucose [Mass/Vol] 117 mg/dL Critically high 74-106 [facility] Comment on above: Performed By: #### P SAFREE #### [facility] [address] [place] [address] Dr. Shabnam Rae Potassium [Moles/Vol] 4.0 mmol/L Normal 3.5-5.[address] [facility] Comment on above: Performed By: #### P SAFREE #### [facility] [address] [place] [address] Dr. Shabnam Rae Protein [Mass/Vol] 7.2 g/dL Normal 6.1-8.2 [facility] Comment on above: Performed By: #### P SAFREE #### [facility] [address] [place] [address] Dr. Shabnam Rae Sodium [Moles/Vol] 142 mmol/L Normal 136-145 [facility] Comment on above: Performed By: #### P SAFREE #### [facility] [address] [place] [address] Dr. Shabnam Rae Urea nitrogen [Mass/Vol] 15.0 mg/dL Normal 7.0-18.[address] [facility] Comment on above: Performed By: #### P SAFREE #### [facility] [address] [place] [address] Dr. Shabnam Rae Urea nitrogen/Creatinine [Mass ratio] 13.0 mg/mg Normal [facility] Comment on above: Performed By: #### P SAFREE #### [facility] [address] [place] [address] Dr. Shabnam Rae US SCROTUMon 01-05-2022 US [...] ALVINA CAICEDO Date: 2022-01-05 08:48 Normal [facility] CBC AUTO DIFFon 01-04-2022 BASO # 0.1 103/ul Normal 0.0-0.[address] [facility] Comment on above: Performed By: #### C BC #### [facility] [address] [place] [address] Dr. Shabnam Rae Basophils/100 WBC (Bld) 0.8 % Normal 0.2-2.[address] [facility] Comment on above: Performed By: #### C BC #### [facility] [address] [place] [address] Dr. Shabnam Rae EO # 0.1 103/ul Normal 0.0-0.7 [facility] Comment on above: Performed By: #### C BC #### [facility] [address] [place] [address] Dr. Shabnam Rae Eosinophils/100 WBC (Bld) 1.5 % Normal 0.9-7.[address] [facility] Comment on above: Performed By: #### C BC #### [facility] [address] [place] [address] Dr. Shabnam Rae Erythrocyte distribution width (RBC) [Ratio] 12.8 % Normal 11.0-15.[address] [facility] Comment on above: Performed By: #### C BC #### [facility] [address] [place] [address] Dr. Shabnam Rae Hematocrit (Bld) [Volume fraction] 40.3 % Critically low 42.0-54.[address] [facility] Comment on above: Performed By: #### C BC #### [facility] [address] [place] [address] Dr. Shabnam Rae Hemoglobin (Bld) [Mass/Vol] 13.4 g/dL Critically low 14.0-18.[address] [facility] Comment on above: Performed By: #### C BC #### [facility] [address] [address] [address] Shabnam Rae IG # 0.03 10e3/ul Normal 0.00-0.[address] [facility] Comment on above: Performed By: #### C BC #### [facility] [address] [place] [address] Dr. Shabnam Rae IG % 0.5 % Normal 0.0-0.[address] [facility] Comment on above: Performed By: #### C BC #### [facility] [address] [place] [address] Dr. Shabnam Rae LYMPH # 1.0 103/ul Critically low 1.2-3.8 [facility] Comment on above: Performed By: #### C BC #### [facility] [address] [place] [address] Dr. Shabnam Rae Lymphocytes/100 WBC (Bld) 16.4 % Critically low 20.5-60.[address] [facility] Comment on above: Performed By: #### C BC #### [facility] [address] [place] [address] Dr. Shabnam Rae MANUAL DIFF REQ NO Normal [facility] Comment on above: Performed By: #### C BC #### [facility] [address] [place] [address] Dr. Shabnam Rae MCH (RBC) [Entitic mass] 29.5 pg Normal 25.9-34.[address] [facility] Comment on above: Performed By: #### C BC #### [facility] [address] [place] [address] Dr. Shabnam Rae MCHC (RBC) [Mass/Vol] 33.3 g/dL Normal 29.9-35.[address] [facility] Comment on above: Performed By: #### C BC #### [facility] [address] [place] [address] Dr. Shabnam Rae MCV (RBC) [Entitic vol] 88.8 fL Normal 80.0-94.[address] [facility] Comment on above: Performed By: #### C BC #### [facility] [address] [place] [address] Dr. Shabnam Rae MONO # 0.6 103/ul Normal 0.3-0.[address] [facility] Comment on above: Performed By: #### C BC #### [facility] [address] [place] [address] Dr. Shabnam Rae Monocytes/100 WBC (Bld) 9.6 % Normal 1.7-12.[address] [facility] Comment on above: Performed By: #### C BC #### [facility] [address] [place] [address] Dr. Shabnam Rae NEUT # 4.4 103/ul Normal 1.4-6.[address] [facility] Comment on above: Performed By: #### C BC #### [facility] [address] [place] [address] Dr. Shabnam Rae Neutrophils/100 WBC (Bld) 71.2 % Normal 43.0-75.[address] [facility] Comment on above: Performed By: #### C BC #### [facility] [address] [place] [address] Dr. Shabnam Rae Platelet mean volume (Bld) [Entitic vol] 10.8 fL Normal 9.5-13.5 [facility] Comment on above: Performed By: #### C BC #### [facility] [address] [place] [address] Dr. Shabnam Rae PLT 158 103/ul Normal 150-450 [facility] Comment on above: Performed By: #### C BC #### [facility] [address] [place] [address] Dr. Shabnam Rae RBC 4.54 106/ul Critically low 4.70-6.10 [facility] Comment on above: Performed By: #### C BC #### [facility] [address] [place], [place] [address] Dr. Shabnam Rae WBC 6.2 103/ul Normal 4.0-11.[address] [facility] Comment on above: Performed By: #### C BC #### [facility] [address] [place], [place] [address] ABD/PELV W CONon [...] MAYRA BERNAL Date: 2022-01-04 05:19 Normal [facility] CT PELVIS WO CONon 2 [...] MANUEL FRANCE Date: 2022-01-04 08:54 Normal [facility] CULTURE URINEon 01-04-2022 CULTURE URINE Culture Observations: No growth Normal [facility] Comment on above: Performed By: #### P [facility] #### [facility] [address] [place] [address] Dr. Shabnam Rae Covid-19 PCR ([facility])on 12-13 SARS-CoV-2 (COVID-19) RNA ELIJAH+probe Ql (Unsp spec) Not detected Normal NOT DETECTED [facility] Comment on above: Result Comment: When diagnostic testing is negative, the possibility of a false negative should be considered in the context of a patient's recent exposures and the presence of clinical signs and symptoms consistent with SARS-CoV-2. This test is not yet approved or cleared by the [place] Food and Drug Administration (FDA). This test was developed by [employer], [place], [place]. The performance characteristics of this test were validated by [facility]. The results are not intended to be used as the sole means for clinical diagnosis or patient management decisions. [facility] is authorized under Clinical Laboratory [...] for this test is supported by the [employer] of Health and Human Service's declaration that [...] used). Performed By: #### C VDTB #### [facility] [address] [place] [address] Dr. Shabnam Rae ER URINE PROFILEon 2 Bilirubin Ql (U) Negative Normal NEGATIVE [facility] Comment on above: Performed By: #### P SASC #### [facility] [address] [place] [address] Dr. Shabnam Rae Clarity (U) CLEAR Normal CLEAR [facility] Comment on above: Performed By: #### P SASC #### [facility] [address] [place] [address] Dr. Shabnam Rae Color (U) YELLOW Normal YELLOW [facility] Comment on above: Performed By: #### P SASC #### [facility] [address] [address] [address] Shabnam HERNANDEZ A micrscopic examination will be performed if indicated. Normal [facility] Comment on above: Performed By: #### P SASC #### [facility] [address] [address] [address] Shabnam Rae Glucose Ql (U) Negative Normal NEGATIVE [facility] Comment on above: Performed By: #### P SASC #### [facility] [address] [address] [address] Shabnam Rae Hemoglobin Ql (U) Negative Normal NEGATIVE [facility] Comment on above: Performed By: #### P SASC #### [facility] [address] [address] [address] Shabnam Rae Ketones Ql (U) Negative Normal NEGATIVE [facility] Comment on above: Performed By: #### P SASC #### [facility] [address] [address] [address] Shabnam Rae LEUKOCYTES Negative Normal NEGATIVE [facility] Comment on above: Performed By: #### P SASC #### [facility] [address] [address] [address] Shabnam Rae Nitrite Ql (U) Negative Normal NEGATIVE [facility] Comment on above: Performed By: #### P SASC #### [facility] [address] [place] [address] Dr. Shabnam Rae pH (U) 6.5 [pH] Normal 5-9 [facility] Comment on above: Performed By: #### P SASC #### [facility] [address] [address] [address] Shabnam Rae SPEC GRAVITY 1.010 Normal 1.005-<=1.025 [facility] Comment on above: Performed By: #### P SASC #### [facility] [address] [place] [address] Dr. Shabnam Rae UA PROTEIN Negative Normal NEGATIVE/ TRACE [facility] Comment on above: Performed By: #### P SASC #### [facility] [address] [address] [address] Shabnam Rae UR MICRO IND NOT INDICATED Normal [facility] Comment on above: Performed By: #### P SASC #### [facility] [address] [place] [address] Dr. Shabnam Rae Urobilinogen Qn (U) 0.2 {Sarai'U}/dL Normal 0.2 - 1. [address] [facility] Comment on above: Performed By: #### P SASC #### [facility] [address] [place] [address] Dr. Shabnam Rae LACTATE/LACTIC ACIDon 2021 Lactate [Moles/Vol] 1.0 mmol/L Normal 0.4-2.0 [facility] Comment on above: Performed By: #### P SASC #### [facility] [address] [place] [address] Dr. Shabnam Rae PROF CHEM 8 (BAS METB)on Anion gap [Moles/Vol] 10.0 mmol/L Normal [facility] Comment on above: Performed By: #### B MP #### [facility] [address] [place] [address] Dr. Shabnam Rae Calcium [Mass/Vol] 8.5 mg/dL Normal 8.5-10.1 [facility] Comment on above: Performed By: #### B MP #### [facility] [address] [place] [address] Dr. Shabnam Rae Chloride [Moles/Vol] 103 mmol/L Normal 98-[address] [facility] Comment on above: Performed By: #### B MP #### [facility] [address] [place] [address] Dr. Shabnam Rae CO2 [Moles/Vol] 29.2 mmol/L Normal 21.0-32.0 [facility] Comment on above: Performed By: #### B MP #### [facility] [address] [place] [address] Dr. Shabnam Rae Creatinine [Mass/Vol] 1.25 mg/dL Normal 0.70-1.[address] [facility] Comment on above: Performed By: #### B MP #### [facility] [address] [address] [address] Shabnam Rae EGFR-AF BENINESE >60 Normal >=60 [facility] Comment on above: Performed By: #### B MP #### [facility] [address] [id number] [address] Shabnam Rae EGFR-NON AF BENINESE >60 Normal >=[address] [facility] Comment on above: Performed By: #### B MP #### [facility] [address] [address] [address] Shabnam Rae Glucose [Mass/Vol] 132 mg/dL Critically high 74-106 [facility] Comment on above: Performed By: #### B MP #### [facility] [address] [address] [address] Shabnam Rae Potassium [Moles/Vol] 3.2 mmol/L Critically low 3.5-5.[address] [facility] Comment on above: Performed By: #### B MP #### [facility] [address] [address] [address] Shabnam Rae Sodium [Moles/Vol] 139 mmol/L Normal 136-145 [facility] Comment on above: Performed By: #### B MP #### [facility] [address] [address] [address] Shabnam Rae Urea nitrogen [Mass/Vol] 19.0 mg/dL Critically high 7.0-18.[address] [facility] Comment on above: Performed By: #### B MP #### [facility] [address] [address] [address] Shabnam Rae Urea nitrogen/Creatinine [Mass ratio] 15.2 mg/mg Normal [facility] Comment on above: Performed By: #### B MP #### [facility] [address] [place], [place] [id number] Dr. Shabnam Rae CERVICAL SPINE 2 OR 3 [facility] 07-06-2019 CERVICAL SPINE 2 OR 3 [facility] Department of Radiology [address] [place] [id number] Patient Name: MATTY GARCES : 1970 Sex: M Age: Race: White Pt. Location: 85 Patient Status: O Ordered Date: 07/06/2019 9:10:00 AM Completed Date: 07/06/2019 09:21 AM Requesting Provider: LUCIANO VEIIRA Attending Provider: [...] findings. Electronically signed by:Bernice Hoyt. Transcribed by: [email or web address], User Resident: RADHA CHIN Electronically Signed by: BERNICE HOYT @ 07/06/2019 08:52 PM I personally read this/these film(s) with this resident Normal [facility] Comment on above: Order Comment: , STA T READ , STAT READ , , , Ordering Provider - LUCIANO VIEIRA MD , CERVICAL SPINE 2 OR 3 [facility] 04-06-2019 CERVICAL SPINE 2 OR 3 [facility] Department of Radiology [address] [place] [id number] Patient Name: MATTY GARCES : 1970 [...] FALLS Exam: CERVICAL SPINE 2 OR 3 [facility] CERVICAL SPINE 2 OR 3 [...] study. Electronically signed by:Bernice Hoyt. Transcribed by: [email or web address], User Resident: Electronically Signed by: BERNICE HOYT @ 04/06/2019 04:40 PM Normal [facility] Comment on above: Order Comment: AP/LA T, ODONTOID PLEASE DO SWIMMER'S VIEW FOLLOW UP HARDWARE AND ALIGNMENT, S/P ACDF, RECENT FALLS CERVICAL SPINE 2 OR 3 [facility] 02-17-2019 CERVICAL SPINE 2 OR 3 [facility] Department of Radiology [address] [place] [id number] Patient Name: MATTY GARCES : 1970 [...] findings. Electronically signed by:Bella King. Transcribed by: [email or web address], User Resident: EMILE TINAJERO Electronically Signed by: BELLA KING @ 02/20/2019 11:53 AM I personally read this/these film(s) with this resident Normal [facility] Comment on above: Order Comment: C-SPI NE 2 OR 3 VIEW POSTOP, EVALUATION HARDWARE AN ALIGNMENT BASIC METABOLIC PANELon 05-2 Calcium [Mass/Vol] 9.2 mg/dL Normal 8.6-10.3 [facility] Comment on above: Order Comment: No: D o not add to previous draw Performed By: #### 5 [id number] #### [facility] [address] [place] [address], [place] Chloride [Moles/Vol] 101 mmol/L Normal 98-107 [facility] Comment on above: Order Comment: No: D o not add to previous draw Performed By: #### 5 0103 #### [facility] [address] [place], [place] [address], [place] CO2 [Moles/Vol] 26 mmol/L Normal 21-31 [facility] Comment on above: Order Comment: No: D o not add to previous draw Performed By: #### 5 0103 #### [facility] [address] [place] [address], [place] Creatinine [Mass/Vol] 1.02 mg/dL Normal 0.70-1.30 The [facility] Comment on above: Order Comment: No: D o not add to previous draw Performed By: #### 5 0103 #### [facility] [address] [place] [address], [place] GFR/1.73 sq M predicted among blacks MDRD (S/P/Bld) [Vol rate/Area] mL/min/{1.73_m2} Normal >60 The [facility] Comment on above: Order Comment: No: D o not add to previous draw Performed By: #### 5 0103 #### [facility] [address] [place] [address], [place] GFR/1.73 sq M predicted among non-blacks MDRD (S/P/Bld) [Vol rate/Area] mL/min/{1.73_m2} Normal >60 The [facility] Comment on above: Order Comment: No: D o not add to previous draw Performed By: #### 5 0103 #### [facility] [address] [place] [address], [place] Glucose [Mass/Vol] 124 mg/dL High 70-100 [facility] Comment on above: Order Comment: No: D o not add to previous draw Performed By: #### 5 0103 #### [facility] [address] [place] [address], [place] Potassium [Moles/Vol] 3.9 mmol/L Normal 3.5-5.1 The [facility] Comment on above: Order Comment: No: D o not add to previous draw Performed By: #### 5 0103 #### [facility] [address] [place] [address], [place] Sodium [Moles/Vol] 137 mmol/L Normal 136-145 [facility] Comment on above: Order Comment: No: D o not add to previous draw Performed By: #### 5 0103 #### [facility] [address] [place] [address], [place] Urea nitrogen [Mass/Vol] 15 mg/dL Normal 7-25 [facility] Comment on above: Order Comment: No: D o not add to previous draw Performed By: #### 5 0103 #### [facility] [address] [place] [address], [place] CBC COMPLETE BLOOD COUNTon - Erythrocyte distribution width (RBC) [Ratio] 13.9 % Normal 11.5-15.0 The [facility] Comment on above: Order Comment: No: D o not add to previous draw Performed By: #### 5 0103 #### [facility] [address] Hematocrit (Bld) [Volume fraction] 50.0 % Normal 39.0-50.0 The [facility] Comment on above: Order Comment: No: D o not add to previous draw Performed By: #### 5 0103 #### [facility] [address] [place] [id number], [facility] Hemoglobin (Bld) [Mass/Vol] 16.0 g/dL Normal 13.0-17.0 [facility] Comment on above: Order Comment: No: D o not add to previous draw Performed By: #### 5 0103 #### [facility] [address] [place] [address], [facility] MCH (RBC) [Entitic mass] 27.5 pg Normal 27.0-33.0 [facility] Comment on above: Order Comment: No: D o not add to previous draw Performed By: #### 5 0103 #### [facility] [address] MCHC (RBC) [Mass/Vol] 32.0 g/dL Normal 32.0-35.0 [facility] Comment on above: Order Comment: No: D o not add to previous draw Performed By: #### 5 0103 #### [facility] [address] [place] [address], [facility] MCV (RBC) [Entitic vol] 85.9 fL Normal 82.0-98.0 [facility] Comment on above: Order Comment: No: D o not add to previous draw Performed By: #### 5 0103 #### [facility] [address] [place] [address], [facility] Nucleated RBC/100 WBC (Bld) [Ratio] 0 % Normal 0-0 The [facility] Comment on above: Order Comment: No: D o not add to previous draw Performed By: #### 5 0103 #### [facility] [address] PLAT CNT 249 10*3/uL Normal 150-400 The [facility] Comment on above: Order Comment: No: D o not add to previous draw Performed By: #### 5 0103 #### [facility] [address] [place] [address], [facility] RBC (Bld) [#/Vol] 5.82 10*6/uL High 4.20-5.70 The [facility] Comment on above: Order Comment: No: D o not add to previous draw Performed By: #### 5 0103 #### [facility] [address] [place] [address], [facility] WBC (Bld) [#/Vol] 15.85 10*3/uL High 4.00-10.60 [facility] Comment on above: Order Comment: No: D o not add to previous draw Performed By: #### 5 0103 #### [facility] [address] Operative Reporton 9 Operative Report MR#: [id number] I [facility] Pt. Name: Matty Garces Room #: [id number] Discharge Date: Birthdate: 1970 OPERATIVE REPORT DATE OF SURGERY: 01/30/2019 SURGEON: Luciano Vieira M.D. 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 POSTOPERATIVE DIAGNOSIS: Failed instrumentation at C6-7 on the right. SENIOR CORPORATE ACCOUNTANT: ADENIKE Lugo. ANESTHESIA: Endotracheal, Hogan. PROCEDURES: Redo [...] Vieira M.D. Date Trans: 01/31/2019 02:31 Eze/sasha [id number] cc: Venus Mendez M.D. [address] [place] [address] Normal [facility] CERVICAL SPINE 2 OR 3 [facility] 01-30-2019 CERVICAL SPINE 2 OR 3 [facility] Department of Radiology [address] [place] [phone] Patient Name: MATTY GARCES : 1970 Sex: M Age: Race: White Pt. Location: Patient Status: O Ordered Date: 01/30/2019 7:05:00 AM Completed Date: 01/30/2019 04:12 PM Requesting Provider: LUCIANO VIEIRA Attending Provider: LUCIANO VIEIRA Report Copy To: Signs & Symptoms: C6-7 ACDF History: C6-7 ACDF Comments: C6-7 ACDF Exam: CERVICAL SPINE 2 OR 3 [facility] CERVICAL SPINE 2 OR 3 [facility] 01/30/2019 4:12 PM EDT SIGNS AND SYMPTOMS: C6-7 ACDF TECHNOLOGIST COMMENTS: Intra op ACDF C6-7 with , 30 sec of fluoro time used QUESTION FOR THE RADIOLOGIST: C6-7 ACDF PROTOCOLS: AP, Odontoid and Lateral views were obtained. COMPARISON: None FINDINGS: 5 images were obtained. Fluoroscopic time as utilized above. IMPRESSION: For documentation Electronically signed by:Justus Montano. Transcribed by: [email or web address], User Resident: Electronically Signed by: JUSTUS MONTANO @ 01/30/2019 04:18 PM Normal [facility] Comment on above: Order Comment: C6-7 ACDF POC GLUCOSE LABon 01-30-2019 Glucose [Mass/Vol] 106 mg/dL High 70-100 [facility] Comment on above: Performed By: #### 5 0103 #### [facility] [address] [facility]. [address] *MRSA/MSSA DNA NASALon 01-23 *MRSA/MSSA DNA NASAL Clinical Report: (D ) Specimen: NASAL SWAB Collected: 01/23/2019 15:02 Status: Final Last Updated: 01/23/2019 20:14 MSSA DNA (Final) Methicillin Susceptible Staphylococcus aureus DNA Detected MRSA DNA (Final) No Methicillin Resistant Staphylococcus aureus DNA Detected Normal [facility] Comment on above: Performed By: #### 5 0103 #### [facility] [address] APTTon 01-23-2019 aPTT Coag (Bld) [Time] 35.4 s High 25.0-35.0 [facility] Comment on above: Result Comment: [...] THIS PURPOSE. Performed By: #### 5 7307, 36[address] #### [facility] [address] [facility]. [address] BASIC METABOLIC PANELon 01-11 Calcium [Mass/Vol] 9.5 mg/dL Normal 8.6-10.3 [facility] Comment on above: Performed By: #### 5 7307, 97218 #### [facility] [address] Chloride [Moles/Vol] 101 mmol/L Normal 98-107 [facility] Comment on above: Performed By: #### 5 7307, 73256 #### [facility] [address] [place] [address], [place] CO2 [Moles/Vol] 29 mmol/L Normal 21-[address] [facility] Comment on above: Performed By: #### 5 73, 71975 #### [facility] [address] [place] [address], [place] Creatinine [Mass/Vol] 1.08 mg/dL Normal 0.70-1.30 [facility] Comment on above: Performed By: #### 5 7306, 97350 #### [facility] [address] [place] [address], [place] GFR/1.73 sq M predicted among blacks MDRD (S/P/Bld) [Vol rate/Area] mL/min/{1.73_m2} Normal >60 [facility] Comment on above: Performed By: #### 5 7306, 36730 #### [facility] [address] [place] [address], [place] GFR/1.73 sq M predicted among non-blacks MDRD (S/P/Bld) [Vol rate/Area] mL/min/{1.73_m2} Normal >60 [facility] Comment on above: Performed By: #### 5 7306, 22183 #### [facility] [address] [place] [address], [place] Glucose [Mass/Vol] 87 mg/dL Normal 70-100 [facility] Comment on above: Performed By: #### 5 7306, 54650 #### [facility] [address] [place] [address], [place] Potassium [Moles/Vol] 4.0 mmol/L Normal 3.5-5.1 [facility] Comment on above: Performed By: #### 5 7306, 11223 #### [facility] [address] [place] [address], [place] Sodium [Moles/Vol] 137 mmol/L Normal 136-145 [facility] Comment on above: Performed By: #### 5 7307, 42880 #### [facility] [address] Urea nitrogen [Mass/Vol] 12 mg/dL Normal 7-25 [facility] Comment on above: Performed By: #### 5 73Al, 99835 #### [facility] [address] CBC W/DIFFon 01-23-2019 ABS BASOPHILS 0.1 10*3/uL Normal 0.0-0.2 The [facility] Comment on above: Performed By: #### 5 73Al, 61419 #### [facility] [address] ABS IMM GRANS 0.0 10*3/uL Normal 0.0-0.2 The [facility] Comment on above: Performed By: #### 5 Al, 43613 #### [facility] [address] ABS NEUTROPHILS 5.3 10*3/uL Normal 1.6-7.6 The [facility] Comment on above: Performed By: #### 5 Al, 46379 #### [facility] [address] Basophils/100 WBC (Bld) 0.9 % Normal 0.0-1.0 The [facility] Comment on above: Performed By: #### 5 73Al, 34839 #### [facility] [address] [place] [address], [facility] Eosinophils (Bld) [#/Vol] 0.2 10*3/uL Normal 0.0-0.5 The [facility] Comment on above: Performed By: #### 5 73Al, 97575 #### [facility] [address] [facility] [place] [address], [facility] Eosinophils/100 WBC (Bld) 2.3 % Normal 0.0-6.0 [facility] Comment on above: Performed By: #### 5 7306, 72143 #### [facility] [address] Erythrocyte distribution width (RBC) [Ratio] 13.8 % Normal 11.5-15.0 [facility] Comment on above: Performed By: #### 7306, 88545 #### [facility] [address] [facility] [place] [place] [address], [facility] Hematocrit (Bld) [Volume fraction] 49.6 % Normal 39.0-50.0 [facility] Comment on above: Performed By: #### 7306, 50374 #### [facility] [address] Hemoglobin (Bld) [Mass/Vol] 16.4 g/dL Normal 13.0-17.0 [facility] Comment on above: Performed By: #### 7306, 44305 #### [facility] [address] [place] [address], [facility] IMMATURE GRANS 0.5 % Normal 0.0-1.0 The [facility] Comment on above: Performed By: #### 5 7306, 87218 #### [facility] [address] [facility] [place] [place] [address], [facility] Lymphocytes (Bld) [#/Vol] 1.2 10*3/uL Normal 1.2-4.0 [facility] Comment on above: Performed By: #### 5 7306, 07416 #### [facility] [address] [place] [address], [facility] Lymphocytes/100 WBC (Bld) 16.6 % Low 20.0-45.0 [facility] Comment on above: Performed By: #### 5 7306, 69617 #### [facility] [address] [place] [id number], [facility] MCH (RBC) [Entitic mass] 27.8 pg Normal 27.0-33.0 [facility] Comment on above: Performed By: #### 5 7306, 03733 #### [facility] [address] [place] [address], [facility] MCHC (RBC) [Mass/Vol] 33.1 g/dL Normal 32.0-35.0 [facility] Comment on above: Performed By: #### 5 7306, 06104 #### [facility] [address] [place] [address], [facility] MCV (RBC) [Entitic vol] 84.2 fL Normal 82.0-98.0 The [facility] Comment on above: Performed By: #### 5 7306, 98247 #### [facility] [address] [place] [address], [facility] Monocytes (Bld) [#/Vol] 0.7 10*3/uL Normal 0.1-1.0 [facility] Comment on above: Performed By: #### 5 7306, 76928 #### [facility] [address] [place] [address], [facility] MONOS 9.4 % Normal 5.0-12.0 [facility] Comment on above: Performed By: #### 5 7306, 39428 #### [facility] [address] [place] [id number], [facility] Neutrophils/100 WBC (Bld) 70.3 % Normal 40.0-72.0 [facility] Comment on above: Performed By: #### 5 7306, 78070 #### [facility] [address] [place] [id number], [facility] Nucleated RBC/100 WBC (Bld) [Ratio] 0 % Normal 0-0 [facility] Comment on above: Performed By: #### 5 7306, 89577 #### [facility] [address] [facility] [place] [address], [facility] PLAT CNT 235 10*3/uL Normal 150-400 The [facility] Comment on above: Performed By: #### 5 7307, 18325 #### [facility] [address] [place] [address], [facility] RBC (Bld) [#/Vol] 5.89 10*6/uL High 4.20-5.70 [facility] Comment on above: Performed By: #### 5 7307, 74458 #### [facility] [address] [place] [address], [facility] WBC (Bld) [#/Vol] 7.48 10*3/uL Normal 4.00-10.60 [facility] Comment on above: Performed By: #### 5 7307, 79278 #### [facility] [address] PROTHROMBIN TIMEon 9 INR Coag (PPP) [Relative time] 1.12 {INR} Normal 0.91-1.16 [facility] Comment on above: Result Comment: [...] CHEST 1995;108:231S-246S. Performed By: #### 5 7307, 28619 #### [facility] [address] PT Coag (PPP) [Time] 14.4 s Normal 12.3-14.8 [facility] Comment on above: Result Comment: ALL RESULTS MUST BE INTERPRETED WITH RESPECT TO BLOOD DRAWING ARTIFACT OR DILUTION ERROR OF ANTICOAGULANT AT THE TIME OF SAMPLING. Performed By: #### 5 7307, 88969 #### [facility] [address] [facility]. [address] TYPE AND SCREENon 01-23-2019 ABO INTERPRETATION A Normal [facility] Comment on above: Performed By: #### 5 7307, 62469 #### [facility] [address] [facility] RH INTERPRETATION Positive Normal [facility] Comment on above: Performed By: #### 5 7307, 15311 #### [facility] [address] [facility]. [address] 3D CERVICAL SPINE WO CONT RASTon 01-12-2019 CT 3D CERVICAL SPINE WO CONTRAST [facility] Department of Radiology [address] [place] [id number] Patient Name: MATTY GARCES : 1970 Sex: M Age: Race: White Pt. Location: Patient Status: D Ordered Date: 01/10/2019 2:15:00 PM Completed Date: 01/12/2019 10:32 AM Requesting Provider: LUCIANO VIEIRA Attending Provider: LUCIANO VIEIRA Report Copy To: VENUS MENDEZ Signs & Symptoms: M48.02 Spinal stenosis, cervical region I10 History: [place] para auth # [id number] 01/10/19-02/09/19 [id number] *er Comments: Exam: CT 3D CERVICAL SPINE [...] incomplete Electronically signed by:Ten Garland. Transcribed by: [email or web address], User Resident: Electronically Signed by: TEN GARLAND @ 01/13/2019 09:18 AM Normal [facility] CERVICAL SPINE 2 OR 3 [facility] 01-05-2019 CERVICAL SPINE 2 OR 3 [facility] Department of Radiology [address] [place] [phone] Patient Name: MATTY GARCES : 1970 Sex: M Age: Race: White Pt. Location: Patient Status: O Ordered Date: 01/05/2019 9:00:00 AM Completed Date: 01/05/2019 09:06 AM Requesting Provider: LUCIANO VIEIRA Attending Provider: LUCIANO VIEIRA Report Copy To: Signs & Symptoms: M48.02 Spinal stenosis, cervical region I10 History: [place] Comments: , , , Ordering Provider - LUCIANO VIEIRA MD , Exam: CERVICAL SPINE 2 OR 3 [facility] CERVICAL SPINE 2 OR 3 [facility] 01/05/2019 9:06 AM EDT SIGNS [...] findings. Electronically signed by:Ten Garland. Transcribed by: [email or web address], User Resident: SHELLY DELA CRUZ Electronically Signed by: TEN GARLAND @ 01/05/2019 12:37 PM I personally read this/these film(s) with this resident Normal The [facility] Comment on above: Order Comment: , , = ========= , Ordering Provider - LUCIANO VIEIRA MD , CERVICAL SPINE 2 OR 3 [facility] 08-30-2018 CERVICAL SPINE 2 OR 3 [facility] Department of Radiology [address] [place] [phone] Patient Name: MATTY GARCES : 1970 Sex: M Age: Race: White Pt. Location: Patient Status: O Ordered Date: 08/30/2018 9:35:00 AM Completed Date: 08/30/2018 09:43 AM Requesting Provider: LUCIANO VIEIRA Attending Provider: LUCIANO VIEIRA Report Copy To: VENUS MENDEZ Signs & Symptoms: M50.90 Cervical disc disorder, unsp, unspecified cervical region I10 History: [place] Comments: , POST OP XRAY AP/LAT ONLY [...] findings. Electronically signed by:Bella King. Transcribed by: [email or web address], User Resident: RYAN HEAD Electronically Signed by: BELLA KING @ 08/30/2018 05:45 PM I personally read this/these film(s) with this resident Normal [facility] Comment on above: Order Comment: , POS T OP XRAY AP/LAT ONLY , POST OP XRAY AP/LAT ONLY , , , Ordering Provider - LUCIANO VIEIRA MD , Operative Reporton 8 Operative Report MR#: [id number] I [facility] Pt. Name: Matty Garces Room #: [id number] Discharge Date: Birthdate: 1970 OPERATIVE REPORT DATE OF SURGERY: 08/17/2018 SURGEON: Luciano Vieira M.D. PREOPERATIVE DIAGNOSIS: Herniated cervical disk at C6-7. POSTOPERATIVE DIAGNOSIS: Herniated cervical disk at C6-7. SENIOR CORPORATE ACCOUNTANT: ADENIKE Larios. ANESTHESIA: Endotracheal, Braida. PROCEDURE: Anterior [...] Vieira M.D. Date Trans: 08/17/2018 11:25 P/sasha [id number] cc: Venus Mendez M.D. [address] [facility] [phone] [place] [facility] CERVICAL SPINE 2 OR 3 [facility] 08-17-2018 CERVICAL SPINE 2 OR 3 [facility] Department of Radiology [address] [place] [phone] Patient Name: MATTY GARCES : 1970 [...] findings. Electronically signed by:Bernice Hoyt. Transcribed by: [email or web address], User Resident: EMILE TINAJERO Electronically Signed by: BERNICE HOYT @ 08/18/2018 01:06 PM I personally read this/these film(s) with this resident Normal [facility] Comment on above: Order Comment: C6-7 ACDF with POC GLUCOSE LABon 08-17-2018 Glucose [Mass/Vol] 113 mg/dL High 70-100 [facility] Comment on above: Performed By: #### 8 5499 #### [facility] [address] [place] [address], [facility] RBC'S 2 UNITSon 08-17-2018 CROSSMATCH INTERP 1 COMP Normal [facility] Comment on above: Performed By: #### 8 6002 #### [facility] [address] [place] [address], [facility] CROSSMATCH INTERP 2 COMP Normal [facility] Comment on above: Performed By: #### 8 6002 #### [facility] [address] [place] [address], [facility] PRODUCT CODE 1 E0336 Normal [facility] Comment on above: Performed By: #### 8 6002 #### [facility] [address] [place] [address], [facility] PRODUCT CODE 2 E0336 Normal [facility] Comment on above: Performed By: #### 8 6002 #### [facility] [address] [place] [address], [facility] PRODUCT STATUS 1 RE Normal [facility] Comment on above: Result Comment: Resu lt changed by IF on 08/20/2018 07:48. The previous value was XM. Performed By: #### 8 6002 #### [facility] [address] [place] [address], [facility] PRODUCT STATUS 2 RE Normal [facility] Comment on above: Result Comment: Resu lt changed by IF on 08/20/2018 07:48. The previous value was XM. Performed By: #### 8 6002 #### [facility] [address] UNIT ABO 1 A Normal [facility] Comment on above: Performed By: #### 8 6002 #### [facility] [address] UNIT ABO 2 A Normal [facility] Comment on above: Performed By: #### 8 6002 #### [facility] [address] [facility] [address] UNIT ID 1 [id number] Normal [facility] Comment on above: Performed By: #### 8 6002 #### [facility] [address] [facility]. [address] UNIT ID 2 [id number] Normal [facility] Comment on above: Performed By: #### 8 6002 #### [facility] [address] [facility]. [address] UNIT RH 1 Positive Normal [facility] Comment on above: Performed By: #### 8 [id number] #### [facility] [address] [facility]. [address] UNIT RH 2 Positive Normal [facility] Comment on above: Performed By: #### 8 6002 #### [facility] [address] [facility]. [address] *MRSA/MSSA CULTUREon 08-02- 018 *MRSA/MSSA CULTURE Clinical Report: (D) Specimen: NASAL SWAB Collected: 08/02/2018 12:37 Status: Final Last Updated: 08/03/2018 14:26 ISO (Final) No Methicillin Resistant Staphylococcus aureus Isolated (MRSA) ISO (Final) Methicillin Sensitive Staphylococcus aureus (MSSA) Isolated Normal [facility] Comment on above: Performed By: #### 3 1302 #### [facility] [address] APTTon 08-02-2018 aPTT Coag (Bld) [Time] 31.2 s Normal 25.0-35.0 [facility] Comment on above: Result Comment: [...] THIS PURPOSE. Performed By: #### 5 7307, [id number] #### [facility] [address] [place] [address], [facility] BASIC METABOLIC PANELon 07-15 Calcium [Mass/Vol] 9.4 mg/dL Normal 8.6-10.3 [facility] Comment on above: Performed By: #### 0 0071 #### [facility] [address] [place] [address], [facility] Chloride [Moles/Vol] 103 mmol/L Normal 98-107 [facility] Comment on above: Performed By: #### 0 0071 #### [facility] [address] [place] [address], [facility] CO2 [Moles/Vol] 29 mmol/L Normal 21-[address] [facility] Comment on above: Performed By: #### 0 0071 #### [facility] [address] [place] [address], [facility] Creatinine [Mass/Vol] 1.06 mg/dL Normal 0.70-1.30 [facility] Comment on above: Performed By: #### 0 0071 #### [facility] [address] [place] [address], [facility] GFR/1.73 sq M predicted among blacks MDRD (S/P/Bld) [Vol rate/Area] mL/min/{1.73_m2} Normal >60 [facility] Comment on above: Performed By: #### 0 0071 #### [facility] [address] [place] [address], [facility] GFR/1.73 sq M predicted among non-blacks MDRD (S/P/Bld) [Vol rate/Area] mL/min/{1.73_m2} Normal >60 [facility] Comment on above: Performed By: #### 0 0071 #### [facility] [address] [place] [address], [facility] Glucose [Mass/Vol] 84 mg/dL Normal 70-100 [facility] Comment on above: Performed By: #### 0 0071 #### [facility] [address] [place] [address], [facility] Potassium [Moles/Vol] 4.0 mmol/L Normal 3.5-5.1 [facility] Comment on above: Performed By: #### 0 0071 #### [facility] [address] [facility] [place] [address], [facility] Sodium [Moles/Vol] 140 mmol/L Normal 136-145 [facility] Comment on above: Performed By: #### 0 0071 #### [facility] [address] [facility] [place] [address], [facility] Urea nitrogen [Mass/Vol] 20 mg/dL Normal 7-25 [facility] Comment on above: Performed By: #### 0 0071 #### [facility] [address] [facility] [place] [address], [facility] CBC W/DIFFon 08-02-2018 ABS BASOPHILS 0.1 10*3/uL Normal 0.0-0.2 [facility] Comment on above: Performed By: #### 5 0103 #### [facility] [address] [place] [address], [facility] ABS IMM GRANS 0.1 10*3/uL Normal 0.0-0.2 [facility] Comment on above: Performed By: #### 5 0103 #### [facility] [address] [place] [address], [facility] ABS NEUTROPHILS 4.2 10*3/uL Normal 1.6-7.6 [facility] Comment on above: Performed By: #### 5 0103 #### [facility] [address] [place] [address], [facility] Basophils/100 WBC (Bld) 1.3 % High 0.0-1.0 [facility] Comment on above: Performed By: #### 5 0103 #### [facility] [address] [place] [address], [facility] Eosinophils (Bld) [#/Vol] 0.1 10*3/uL Normal 0.0-0.5 [facility] Comment on above: Performed By: #### 5 0103 #### [facility] [address] [facility] [place] [place] [address], [facility] Eosinophils/100 WBC (Bld) 2.0 % Normal 0.0-6.0 [facility] Comment on above: Performed By: #### 5 0103 #### [facility] [address] [place] [address], [facility] Erythrocyte distribution width (RBC) [Ratio] 13.6 % Normal 11.5-15.0 [facility] Comment on above: Performed By: #### 5 0103 #### [facility] [address] [facility] [place] [place] [address], [facility] Hematocrit (Bld) [Volume fraction] 44.3 % Normal 39.0-50.0 [facility] Comment on above: Performed By: #### 5 0103 #### [facility] [address] Hemoglobin (Bld) [Mass/Vol] 15.1 g/dL Normal 13.0-17.0 [facility] Comment on above: Performed By: #### 5 0103 #### [facility] [address] [place] [address], [facility] IMMATURE GRANS 1.1 % High 0.0-1.0 [facility] Comment on above: Performed By: #### 5 0103 #### [facility] [address] [place] [address], [facility] Lymphocytes (Bld) [#/Vol] 1.2 10*3/uL Normal 1.2-4.0 [facility] Comment on above: Performed By: #### 5 0103 #### [facility] [address] [place] [address], [facility] Lymphocytes/100 WBC (Bld) 18.3 % Low 20.0-45.0 [facility] Comment on above: Performed By: #### 5 0103 #### [facility] [address] [place] [address], [facility] MCH (RBC) [Entitic mass] 29.0 pg Normal 27.0-33.0 [facility] Comment on above: Performed By: #### 5 0103 #### [facility] [address] [facility] [place] [place] [address], [facility] MCHC (RBC) [Mass/Vol] 34.1 g/dL Normal 32.0-35.0 [facility] Comment on above: Performed By: #### 5 0103 #### [facility] [address] [place] [address], [facility] MCV (RBC) [Entitic vol] 85.0 fL Normal 82.0-98.0 [facility] Comment on above: Performed By: #### 5 3 #### [facility] [address] [facility] [place] [place] [address], [facility] Monocytes (Bld) [#/Vol] 0.7 10*3/uL Normal 0.1-1.0 [facility] Comment on above: Performed By: #### 5 0103 #### [facility] [address] [place] [id number], [facility] MONOS 11.1 % Normal 5.0-12.0 [facility] Comment on above: Performed By: #### 5 0103 #### [facility] [address] [place] [address], [facility] Neutrophils/100 WBC (Bld) 66.2 % Normal 40.0-72.0 [facility] Comment on above: Performed By: #### 5 102 #### [facility] [address] [facility] [place] [id number], [facility] Nucleated RBC/100 WBC (Bld) [Ratio] 0 % Normal 0-0 [facility] Comment on above: Performed By: #### 5 102 #### [facility] [address] [facility] [place] [address], [facility] PLAT CNT 179 10*3/uL Normal 150-400 [facility] Comment on above: Performed By: #### 5 102 #### [facility] [address] [place] [id number], [facility] RBC (Bld) [#/Vol] 5.21 10*6/uL Normal 4.20-5.70 [facility] Comment on above: Performed By: #### 5 3 #### [facility] [address] [facility] [place] [id number], [facility] WBC (Bld) [#/Vol] 6.39 10*3/uL Normal 4.00-10.60 [facility] Comment on above: Performed By: #### 5 102 #### [facility] [address] [place] [address], [facility] CERVICAL SPINE 4 OR 5 VIEWSo n 08-02-2018 CERVICAL SPINE 4 OR 5 VIEWS [facility] Department of Radiology [address] [place] [address] Patient Name: MATTY GARCES : [...] findings. Electronically signed by:Bella King. Transcribed by: [email or web address], User Resident: EMILE TINAJERO Electronically Signed by: BELLA KING @ 08/03/2018 11:58 AM I personally read this/these film(s) with this resident Normal [facility] Comment on above: Order Comment: , PRE OP XRAY AP/LAT \EANDE\ FLEX/EX , PREOP XRAY AP/LAT \EANDE\ FLEX/EX , , , Ordering Provider - LUCIANO VIEIRA MD , PROTHROMBIN TIMEon 8 INR Coag (PPP) [Relative time] 1.15 {INR} Normal 0.91-1.16 [facility] Comment on above: Result Comment: [...] CHEST 1995;108:231S-246S. Performed By: #### 5 7307, 78583 #### [facility] [address] [place] [address], [facility] PT Coag (PPP) [Time] 14.7 s Normal 12.3-14.8 [facility] Comment on above: Result Comment: ALL RESULTS MUST BE INTERPRETED WITH RESPECT TO BLOOD DRAWING ARTIFACT OR DILUTION ERROR OF ANTICOAGULANT AT THE TIME OF SAMPLING. Performed By: #### 5 7307, 72893 #### [facility] [address] [place] [address], [facility] TYPE AND SCREENon 08-02-2018 ABO INTERPRETATION A Normal [facility] Comment on above: Order Comment: 2 uni ts 2 units 2 units 2 units 2 units Performed By: #### 6 2586 #### [facility] [address] [place] [address], [facility] RH INTERPRETATION Positive Normal [facility] Comment on above: Order Comment: 2 uni ts 2 units 2 units 2 units 2 units Performed By: #### 6 2586 #### [facility] [address] [facility] [place] [address], [facility] URINALYSIS REFLEXon 08-02-20 18 Appearance (U) CLEAR Normal CLEAR [facility] Comment on above: Performed By: #### 3 0995 #### [facility] [address] [place] [address], [facility] Bilirubin [Mass/Vol] Negative Normal NEGATIVE [facility] Comment on above: Performed By: #### 3 0900 #### [facility] [address] [place] [address], [facility] BLOOD Negative Normal NEGATIVE [facility] Comment on above: Performed By: #### 3 0935 #### [facility] [address] [place] [id number], [facility] Color (U) YELLOW Normal YELLOW [facility] Comment on above: Performed By: #### 3 0965 #### [facility] [address] [place] [address], [facility] Glucose [Mass/Vol] 150 mg/dL Abnormal NEGATIVE [facility] Comment on above: Performed By: #### 3 0965 #### [facility] [address] [place] [address], [facility] KETONE Negative Normal NEGATIVE [facility] Comment on above: Performed By: #### 3 0965 #### [facility] [address] [place] [address], [place] Negative Normal NEGATIVE [facility] Comment on above: Performed By: #### 3 0965 #### [facility] [address] [place] [address], [facility] MICRO NOT DONE negative chemical reactions unless requested in original order Normal [facility] Comment on above: Performed By: #### 3 0965 #### [facility] [address] [place] [address], [facility] Nitrite Ql (U) Negative Normal NEGATIVE [facility] Comment on above: Performed By: #### 3 0965 #### [facility] [address] [place] [address], [facility] pH (Bld) 5.0 Normal 5.0-8.0 [facility] Comment on above: Performed By: #### 3 0965 #### [facility] [address] [place] [address], [facility] Protein (U) [Mass/Vol] Negative Normal NEGATIVE [facility] Comment on above: Performed By: #### 3 0965 #### [facility] [address] [place] [address], [place] SPEC GRAV 1.024 High 1.015-1.020 [facility] Comment on above: Performed By: #### 3 0965 #### [facility] [address] Vital Signs Date Time Vital Sign Value Performing Clinician Molly bunn 02-25-2022 10:30-0400 Blood Pressure Location Viola Lue [facility] 02-25-2022 10:30-0400 Diastolic blood pressure 107 mm[Hg] Viola Lue [facility] 02-25-2022 10:30-0400 Heart rate 74 /min Viola Lue [facility] 02-25-2022 10:30-0400 Respiratory rate 16 /min Viola Lue [facility] 02-25-2022 10:30-0400 Systolic blood pressure 157 mm[Hg] Viola Lue [facility] Encounters Encounter Date Encounter Type Care Provider Facility Start: 01-10-2024 End: 01-11-2024 ambulatory VALENCIA Pate APLALEXI Not Available Start: 01-03-2024 End: 01-03-2024 ambulatory Trey Vallejo [facility] Work Phone: Start: 01-03-2024 End: 01-03-2024 Departed Referred DPM Trey Vallejo Work Phone: [facility] Start: 12-29-2023 End: 12-29-2023 ambulatory RUBÉN LOCO Not Available Start: 11-29-2023 End: 11-30-2023 ambulatory Diallo Beauchamp MD Facility:[facility] Start: 10-18-2023 End: 10-19-2023 ambulatory Diallo Beauchamp MD Facility:[facility] Start: 09-27-2023 End: 09-27-2023 ambulatory RUBÉN LOCO Not Available Start: 08-30-2023 End: 08-31-2023 ambulatory Diallo Beauchamp MD Facility:[facility] Start: 07-12-2023 End: 07-13-2023 ambulatory Diallo Beauchamp MD Facility:[facility] Start: 06-14-2023 End: 06-15-2023 ambulatory Diallo Beauchamp MD Facility:[facility] Start: 12-06-2022 End: 12-06-[address] VENUS MENDEZ . Facility: Start: 12-05-2022 Encounter for genera l adult medical examination without abnormal findings DR VENUS MENDEZ . [facility] Start: 12-01-2022 End: 12-02-[address] [...] encounter procedure Viola Grullon [facility] Start: 01-04-2022 End: 01-05-[address] VENUS MENDEZ . Facility: Start: 01-30-2019 End: 02-01-2019 Evaluation and management of inpatient PROVIDER UNKNOWN Facility:[facility] Start: 08-17-2018 End: 08-18-2018 Patient encounter procedure PROVIDER UNKNOWN Facility:[facility] Procedures Date Procedure Procedure Detail Performing Clinician Start: 12-01-[address] FRANKLIN MENDEZ . Comment on above: Performed By: #### P [facility] #### [facility] [address] [place] [address] Dr. Shabnam Rae Start: 01-30-2019 FUSION CERV JT W INT BD FUS DEV, ANT APPR A COL, OPEN AZEDINE MEDHKOUR Start: 01-30-2019 REMOVAL OF INT FIX F ROM CERVCAL VERTEBRA, OPEN APPROACH AZEDINE [facility]HK[facility] Start: 01-23-2019 Antibody screen PROVIDE R UNKNOWN Comment on above: Performed By: #### 5 7307, [id number] #### [facility] [address] Start: 08-17-2018 ANESTH SPINE CORD SURGERY [...] units Performed By: #### 6 2586 #### [facility] [address] Colonoscopy Viola Grullon Hemorrhoids (disorder) Viola Grullon Hernia of abdominal cavity (disorder) Violafranko Grullon Tonsillectomy Viola Mitchel Payers Date Payer Category Payer Self-pay [id number] 2022 Medicaid [id number] 2022 Unknown 1970 Unknown [id number] 2.16.8 40.1.528714.3.579.2.647 1970 Unknown [id number] 2.16.8 40.1.140672.3.579.2.647 1970 Unknown [id number] 2.16.84 0.1.128923.3.579.2.593 1970 Unknown [id number] 2.16.84 0.1.589368.3.579.2.593 1970 Unknown [id number] 2.16.84 0.1.810880.3.579.2.593 1970 Unknown [id number] 2.16.84 0.1.043820.3.579.2.593 1970 Unknown [id number] 2.16.84 0.1.744370.3.579.2.593 1969 Unknown [id number] 2.16.84 0.1.309785.3.579.2.593 1970 Unknown [id number] 2.16. 840.1.512399.3.579.2.196 1970 Unknown [id number] 2.16. 840.1.118535.3.579.2.196 1970 Unknown [id number] 2.16. 840.1.279412.3.579.2.196 1970 Unknown [id number] 2.16. 840.1.394569.3.579.2.196 1970 Unknown [id number] 2.16. 840.1.518376.3.579.2.196 1969 Unknown [id number] 2.16.84 0.1.130555.3.579.2.1259 1969 Unknown [id number] 2.16.84 0.1.591381.3.579.2.1259 1969 Unknown [id number] 2.16.84 0.1.667370.3.579.2.1259 1969 Unknown [id number] 2.16.84 0.1.990382.3.579.2.1259 1959 Unknown [id number] Unknown [id number] Unknown [id number] 2.16.8 40.1.065853.3.579.2.531 Social History Date Type Detail Facility Tobacco smoking status No Smokin g Status Entered [facility] [address] Sex Assigned At Male [facility] Start: 05-15-2018 Tobacco smoking stat NHIS Ex-smoker (finding) [facility] Start: 1970 Sex Assigned At Male [facility] Functional Status Date Assessment Result Facility 02-25-2022 Functional Status N/A [facility] [address] Progress note 06-09-2023 Note Date & Type Note Facility 06-09-2023 Note [facility] Continue GDMT- Diuretic therapy Monitor daily weights, I&O, fluid restriction 1.5-2L/day, renal function and electrolytes- [facility] Clinical Note 03-26-2022 Note Date [...] ALVINA CAICEDO Date: 2022-03-26 10:47 [facility] Discharge instructions 02-25-2022 Note Date & [...] Watch the hydrocele for any changes. Take sowy-zvo-rmesstm and prescription medicines only as told by [...] 02/17/2011 Document Revised: 09/10/2018 Document Reviewed: 09/10/2018 [employer] Patient Education 2020 Induction Manager. Follow Up Care 01/28/2022 10:36:35 With:Mitchel DELGADO, [place] Gregorio, URO Address: When: Unknown [facility] Evaluation + Plan note Note Date & Type Note Facility Evaluation + Plan note No data available for this section [facility] Evaluation note Note Date & Type Note Facility Evaluation note No assessment information availa [facility] Work Phone: Progress note Note Date & Type Note Facility Progress note No data available for this section [facility] Summary Purpose Family History No Family History Records FoundNo Family History Records FoundNo Family History Records FoundNo Family History Records FoundNo Family History Records FoundNo Family History Records FoundNo Family History Records Found Advance Directives No Advanced Directives Records Found Advance Directive Response Recorded Date/ Time Advance Directives No May 12:42pm Hospital Course Note MR#: [id number] [facility] Pt. Name: Matty Garces Admitted: 01/30/2019 [...] content) DATE CREATED AUTHOR 07/19/2019 [facility] DATE CREATED AUTHOR AUTHOR'S ORGANIZ ATION 02/27/2022 [facility] DATE CREATED AUTHOR AUTHOR'S ORGANIZ ATION 12/08/2022 [facility] DATE CREATED AUTHOR AUTHOR'S ORGANIZ ATION 06/17/2023 [facility] DATE CREATED AUTHOR AUTHOR'S ORGANIZ ATION 12/03/2023 [facility] DATE CREATED AUTHOR AUTHOR'S ORGANIZ ATION 01/15/2024 [facility] DATE CREATED AUTHOR AUTHOR'S ORGANIZ ATION 03/28/2024 The [facility] ysician Group Care Team (unrecognized sect ion [...] BE BASED ON THE PRIMARY CLINICAL RECORDS. [facility] [employer] [facility]. provides no warranty or guarantee of the accuracy or completeness of information in this document.
== END 2024-04-20 14:13 | disposition home or self-care (01) ==
LOC: EC 14:12
PROVIDERS: PCP Family Medicine; Visit Provider Physician Assistant
DX: M25.572 Pain in left ankle and joints of left foot (principal); S89.302D Unspecified physeal fracture of lower end of left fibula, subsequent encounter for fracture with routine healing
CPT/HCPCS: 73610

== ENCOUNTER 2024-05-02 13:04 | Outpatient (OUT) | payer MEDICAID, SELFPAY ==
--- NOTE | 2024-05-02 | XR_ITS ---
The [address] [address] Patient Name: MATTY WADE MRN: [id number] date: 1970 Sex: M Assigned Patient Location: Current Patient Location: Accession/Order Number: [id number] Exam Date: 05/02/2024 13:05 Report Date: 05/03/2024 09:17 At the request of: CLARISA BOJORQUEZ Procedure: XR ankle LT min 3V PROCEDURE: XR ankle LT min 3V HISTORY: LEFT ANKLE PAIN COMPARISON: XR ankle left 04/20/2024 FINDINGS: BONES:Mechanical repair of distal fibular fracture and fusion of distal tibia-fibula syndesmosis. No appreciable hardware fracture loosening. Stable alignment and minimally increasing density of the fracture lines. SOFT TISSUES:Soft tissue swelling surrounding the ankle. EFFUSION:None visible. OTHER: Negative. XR/XR ankle LT min 3V IMPRESSION: 1. Stable surgical changes without evidence of hardware failure or change in alignment. 2. Suspect ongoing bone healing. Electronically authenticated by: SHY MISTRY Date: 05/03/2024 09:17
== END 2024-05-02 13:05 | disposition home or self-care (01) ==
LOC: EC 13:04
PROVIDERS: PCP Family Medicine; Visit Provider Podiatrist Foot & Ankle Surgery
DX: M25.572 Pain in left ankle and joints of left foot (principal); Z98.890 Other specified postprocedural states
CPT/HCPCS: 73610

== ENCOUNTER 2024-05-23 11:14 | Outpatient (OUT) | payer MEDICAID, SELFPAY ==
--- NOTE | 2024-05-23 | XR_ITS ---
The [address] [address] Patient Name: MATTY WADE MRN: [id number] date: 1970 Sex: M Assigned Patient Location: Current Patient Location: Accession/Order Number: [id number] Exam Date: 05/23/2024 11:14 Report Date: 05/24/2024 10:32 At the request of: CLARISA BOJORQUEZ Procedure: XR ankle LT min 3V PROCEDURE: XR ankle LT min 3V HISTORY: LEFT ANKLE PAIN COMPARISON: XR ankle left 05/02/2024 FINDINGS: BONES:Prior distal fibular fracture with lateral plate and screw repair and fusion of the tibial-fibular syndesmosis. Minimal increased density of the fracture line suggesting early bone healing. SOFT TISSUES:No visible soft tissue swelling. EFFUSION:None visible. OTHER: Negative. XR/XR ankle LT min 3V IMPRESSION: 1. Stable surgical repair of distal fibular fracture without evidence of hardware failure or change in alignment. 2. Changes of early bone healing. Electronically authenticated by: SHY MISTRY Date: 05/24/2024 10:32
--- OUTSIDE RECORDS SUMMARY | 2024-05-23 11:28 | XMS_ITS | CCD ---
Author Organization [facility] CliniSyvt Care Team Providers Care Refrigeration System Installer Name Role Phone UNKNOWN, PROVIDER Admitting Unavailable UNKNOWN, PROVIDER Attending Unavailable VENUS MENDEZ Referring Unavailable VENUS MENDEZ Primary Care Unavailable MA Procedure Practitioner Unavailab le UNKNOWN, PROVIDER Surgeon Unavailable MA Procedure Practitioner Unavailab le SANDRA BILL Surgeon Unavailable UNKNOWN, PROVIDER Admitting Unavailable UNKNOWN, PROVIDER Attending Unavailable VENUS MENDEZ Referring Unavailable VENUS MENDEZ Primary Care Unavailable MA Procedure Practitioner Unavailab le UNKNOWN, PROVIDER Surgeon [...] source) Aspartame Drug Allergy 08-17-[address] [facility] (1 source) avoid; Translations: [Unknown] Propensity to adverse reactions (disorder) 08-17-[address] [facility] (1 source) vitamin B12; Translations: [cyanocobalamin] Drug Allergy Unknown (qualifier value) [facility] (1 source) Acetaminophen / HYDROcodone Drug Allergy [facility] (1 source) Corticosteroids Drug allergy (disorder) [facility] (1 source) fentaNYL Drug Allergy [facility] (1 source) Misc-Food; Translations: [Misc-Food] Food allergy (disorder) [facility] (1 source) Corticosteroids Drug allergy (disorder) 05-14-20 18 [facility] Medications Current Medications Medication [...] Bedtime May 14, 2018 12:00am Vit D3-Folic Tkqs-R7-D3-B12 (1 source) Start: 05-14-2018 take 1 tablet by mouth once daily Vit D3-Folic Sqao-D4-V6-B12 Active 1 TAB PO Daily May 14, [...] 3 Chronic Other aftercare (1 source) senior living (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; Translations: [LONG-TERM 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 ASPIRIN] Onset: 3 Episodic Other aftercare (1 source) 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 Num: [id number] Spec Type: Surgical Subm Dr: Trey Vallejo DPM, MS Tissues: A Bone Fragments - Pathologic Fracture (PROXIMAL PHALANX RIGHT HALLU) Procedures: HE/2, Gross/Micro L5, Decalcification Age/ Patient Sex Location Account Attending Physician Matty Garces 53/M LABELL [id number] Trey Vallejo DPM, MS SPEC NUM: [id number] RECD: 01/03/24 STATUS: [facility] NUM: [id number] SOFY: 01/03/[address]: Trey Vallejo DPM, MS ENTERED: 01/03/24 [facility] DR: Ayesha Lundberg SPEC TYPE: Surgical [...] Sectioning reveals unremarkable yellow, spongy bone matrix. Optical Lab Technician sections are submitted in A1 following decal. Clinical history: Non-pressure chronic ulcer . Right hallux IPJ arthroplasty with wound debridement and graft application TW Specimen: [id number] Received: 01/03/24 Status: [facility] Ophelia Num: [id number] Spec Type: Surgical Subm Dr: Trey Vallejo,DPM, MS Tissues: A Bone Fragments - Pathologic Fracture (PROXIMAL PHALANX RIGHT HALLU) Procedures: HE/2, Gross/Micro L5, Decalcification Patient: Matty Garces [id number] (Continued) Specimen: [id number] Received: 01/03/24 (Continued) Signed (signature on file) Viral Rae MD 01/06/24 1838 Specimen: [id number] Received: 01/03/24 Status: [facility] Jacinto Num: [id number] Spec Type: Surgical Subm Dr: Trey Vallejo,DPM, MS Tissues: A Bone Fragments - Pathologic Fracture (PROXIMAL PHALANX RIGHT HALLU) Procedures: HE/2, Gross/Micro L5, Decalcification Patient: Matty Garces [id number] (Continued) Specimen: [id number] Received: 01/03/24 (Continued) CPT Codes 82112 Specimen: [id number] Received: 01/03/24 Status: [facility] Jacinto Num: [id number] Spec Type: Surgical Subm Dr: Trey Vallejo,DPM, MS Tissues: A Bone Fragments - Pathologic Fracture (PROXIMAL PHALANX RIGHT HALLU) Procedures: HE/2, Gross/Micro L5, Decalcification Patient: MiliMatty Toni [id number] (Continued) Signed (signature on file) Viral Rae MD 01/06/24 1838 Normal [facility] CT CSPINE WO CONon CT [...] ANGEL SAID Date: 2022-12-06 06:37 Normal [facility] CT FACIAL BONES WO CONon CT [...] ANGEL SAID Date: 2022-12-06 06:41 Normal [facility] CT HEAD WO CONon 12-06-2022 CT [...] ANGEL SAID Date: 2022-12-06 06:39 Normal [facility] XR ELBOW RT MIN 3 VIEWSon XR ELBOW RT MIN 3 VIEWS Exam: Radiographs: XR ELBOW RT MIN 3 VIEWS Reason for exam: Elbow pain Comparison: None IMPRESSION: Right elbow degenerative changes. Olecranon spur. Remainder of the right elbow is unremarkable. Electronically authenticated by: MICHAEL CASANOVA Date: 2022-12-06 07:22 Normal [facility] XR FOREARM RT 2Von 3 XR FOREARM RT 2V Exam: Radiographs: XR FOREARM RT 2V Reason for exam: Forearm pain Comparison: None IMPRESSION: Mild degenerative changes in the right elbow and wrist. Right forearm is otherwise unremarkable. Electronically authenticated by: MICHAEL CASANOVA Date: 2022-12-06 08:07 Normal [facility] PSA, FREE AND TOTAL RATIOon 12-03-2022 % Free PSA 9.0 % Normal [facility] Comment on above: Result Comment: The [...] men. Performed By: #### P SAFREE #### [facility] [address] [address] [address] Shabnam Rae Prostate specific Ag [Mass/Vol] 5.9 ng/mL Critically high 0.0-4.0 [facility] Comment on above: Result Comment: Tanja FANGIA methodology. . According to the [facility] [...] disease. Performed By: #### P SAFREE #### [facility] [address] [address] [address] Shabnam Rae PSA, Free 0.53 ng/mL Normal N/A [facility] Comment on above: Result Comment: Tanja ayala ECLOSMEL methodology. Performed By: #### P SAFREE #### [facility] [address] [address] [address] Shabnam Rae INSULINon 12-02-2022 Insulin 20.2 uIU/mL Normal 2.6-24.9 [facility] Comment on above: Performed By: #### P SASC #### [facility] [address] [address] [address] Shabnam Rae TESTOSTERONE, TOTALon 2022 Testosterone [Mass/Vol] 256 ng/dL Critically low 264-916 [facility] Comment on above: Result Comment: Adul t male reference interval is based on a population of healthy nonobese males (BMI <30) between 19 and 39 years old. adia Ch.al. JCEM 2017,102;5793-7973. PMID: [id number]. Performed By: #### P SASC #### [facility] [address] [place] [address] Dr. Shabnam Rae CBC AUTO DIFFon 12-01-2022 BASO # 0.1 103/ul Normal 0.0-0.1 [facility] Comment on above: Performed By: #### P SASC #### [facility] [address] [address] [address] Shabnam Rae Basophils/100 WBC (Bld) 1.0 % Normal 0.2-2.0 [facility] Comment on above: Performed By: #### P SASC #### [facility] [address] [address] [address] Shabnam Rae EO # 0.1 103/ul Normal 0.0-0.7 [facility] Comment on above: Performed By: #### P SASC #### [facility] [address] [address] [address] Shabnam Rae Eosinophils/100 WBC (Bld) 1.8 % Normal 0.9-7.0 [facility] Comment on above: Performed By: #### P SASC #### [facility] [address] [place] [address] Dr. Shabnam Rae Erythrocyte distribution width (RBC) [Ratio] 14.8 % Normal 11.0-15.0 [facility] Comment on above: Performed By: #### P SASC #### [facility] [address] [place] [address] Dr. Shabnam Rae Hematocrit (Bld) [Volume fraction] 49.9 % Normal 42.0-54.0 [facility] Comment on above: Performed By: #### P SASC #### [facility] [address] [address] [address] Shabnam Rae Hemoglobin (Bld) [Mass/Vol] 16.0 g/dL Normal 14.0-18.0 [facility] Comment on above: Performed By: #### P SASC #### [facility] [address] [address] [address] Shabnam Rae IG # 0.04 10e3/ul Critically high 0.00-0.03 [facility] Comment on above: Performed By: #### P SASC #### [facility] [address] [place] [address] Dr. Shabnam Rae IG % 0.6 % Critically high 0.0-0.[address] [facility] Comment on above: Performed By: #### P SASC #### [facility] [address] [address] [address] Shabnam Rae LYMPH # 1.0 103/ul Critically low 1.2-3.8 [facility] Comment on above: Performed By: #### P SASC #### [facility] [address] [place] [address] Dr. Shabnam Rae Lymphocytes/100 WBC (Bld) 16.2 % Critically low 20.5-60.0 [facility] Comment on above: Performed By: #### P SASC #### [facility] [address] [address] [address] Shabanm Rae MANUAL DIFF REQ NO Normal [facility] Comment on above: Performed By: #### P SASC #### [facility] [address] [address] [address] Shabnam Rae MCH (RBC) [Entitic mass] 27.7 pg Normal 25.9-34.0 [facility] Comment on above: Performed By: #### P SASC #### [facility] [address] [address] [address] Shabnam Rae MCHC (RBC) [Mass/Vol] 32.1 g/dL Normal 29.9-35.2 [facility] Comment on above: Performed By: #### P SASC #### [facility] [address] [address] [address] Shabnam Rae MCV (RBC) [Entitic vol] 86.3 fL Normal 80.0-94.0 [facility] Comment on above: Performed By: #### P SASC #### [facility] [address] [place] [address] Dr. Shabnam Rae MONO # 0.5 103/ul Normal 0.3-0.8 [facility] Comment on above: Performed By: #### P SASC #### [facility] [address] [place] [address] Dr. Shabnam Rae Monocytes/100 WBC (Bld) 7.6 % Normal 1.7-12.0 [facility] Comment on above: Performed By: #### P SASC #### [facility] [address] [place] [address] Dr. Shabnam Rae NEUT # 4.6 103/ul Normal 1.4-6.5 [facility] Comment on above: Performed By: #### P SASC #### [facility] [address] [place] [address] Dr. Shabnam Rae Neutrophils/100 WBC (Bld) 72.8 % Normal 43.0-75.0 [facility] Comment on above: Performed By: #### P SASC #### [facility] [address] [place] [address] Dr. Shabnam Rae Platelet mean volume (Bld) [Entitic vol] 9.8 fL Normal 9.5-13.5 [facility] Comment on above: Performed By: #### P SASC #### [facility] [address] [place] [address] Dr. Shabnam Rae PLT 203 103/ul Normal 150-450 [facility] Comment on above: Performed By: #### P SASC #### [facility] [address] [place] [address] Dr. Shabnam Rae RBC 5.78 106/ul Normal 4.70-6.10 [facility] Comment on above: Performed By: #### P SASC #### [facility] [address] [place] [address] Dr. Shabnam Rae WBC 6.3 103/ul Normal 4.0-11.0 [facility] Comment on above: Performed By: #### P SASC #### [facility] [address] [place] [address] Dr. Shabnam Rae FREE THYROXINE INDEX T7on FTI 2.05 Normal 1.30-4.50 [facility] Comment on above: Performed By: #### T SH, CMP, LIPID, T7, URIC #### [facility] [address] [place] [address] Dr. Shabnam Rae T3U 33.0 % Normal 33.0-40.0 [facility] Comment on above: Performed By: #### T SH, CMP, LIPID, T7, URIC #### [facility] [address] [place] [address] Dr. Shabnam Rae T4 [Mass/Vol] 6.20 ug/dL Normal 4.50-12.10 [facility] Comment on above: Performed By: #### T SH, CMP, LIPID, T7, URIC #### [facility] [address] [place] [address] Dr. Shabnam Rae GLYCOHEMOGLOBIN A1Con 2022 ADA RECOMMENDATION SEE BELOW Normal [facility] Comment on above: Result Comment: ADA RECOMMENDED LIMIT 4.0 - 6.0 ADA THERAPEUTIC TARGET < 7.0 ACTION SUGGESTED > 7.0 Performed By: #### P SASC #### [facility] [address] [place] [address] Dr. Shabnam Rae Glucose [Mass/Vol] 114 mg/dL Normal [facility] Comment on above: Performed By: #### P SASC #### [facility] [address] [place] [address] Dr. Shabnam Rae HbA1c (Bld) [Mass fraction] 5.6 % Normal 4.5-6.2 [facility] Comment on above: Performed By: #### P SASC #### [facility] [address] [address] [address] Shabnam Rae LIPID PROFILEon 12-01-2022 CHOL-HDL RATIO NORM SEE BELOW Normal [facility] Comment on above: Result Comment: 3.3 - 4.4 LOW RISK 4.4 - 7.1 AVERAGE RISK 7.1 - 11.0 MODERATE RISK >11.0 HIGH RISK Performed By: #### T SH, CMP, LIPID, T7, URIC #### [facility] [address] [address] [address] Shabnam Rae Cholesterol [Mass/Vol] 176 mg/dL Normal <=200 [facility] Comment on above: Performed By: #### T SH, CMP, LIPID, T7, URIC #### [facility] [address] [address] [address] Shabnam Rae Cholesterol in HDL [Mass/Vol] 48 mg/dL Normal 40-60 [facility] Comment on above: Performed By: #### T SH, CMP, LIPID, T7, URIC #### [facility] [address] [address] [address] Shabnam Rae Cholesterol in LDL [Mass/Vol] 108.2 mg/dL Normal [facility] Comment on above: Performed By: #### T SH, CMP, LIPID, T7, URIC #### [facility] [address] [address] [address] Shabnam Rae Cholesterol.total/Ch olesterol in HDL [Mass ratio] 3.7 {ratio} Normal [facility] Comment on above: Performed By: #### T SH, CMP, LIPID, T7, URIC #### [facility] [address] [address] [address] Shabnam Rae HDL NORMAL > or = 60 mg/dl - LOW CARDIOVASCULAR RISK <40 mg/dl - HIGH CARDIOVASCULAR RISK Normal [facility] Comment on above: Performed By: #### T SH, CMP, LIPID, T7, URIC #### [facility] [address] [address] [address] Shabnam Rae LDL CALC NORMAL SEE BELOW Normal [facility] Comment on above: Result Comment: <100 mg/dl OPTIMAL 100 - 129 mg/dl NEAR OR ABOVE OPTIMAL 130 - 159 mg/dl BORDERLINE HIGH 160 - 189 mg/dl HIGH >190 mg/dl VERY HIGH Performed By: #### T SH, CMP, LIPID, T7, URIC #### [facility] [address] [address] [address] Shabnam Rae Triglyceride [Mass/Vol] 99 mg/dL Normal <=150 [facility] Comment on above: Performed By: #### T SH, CMP, LIPID, T7, URIC #### [facility] [address] [address] [address] Shabnam Rae VLDL CALC 19.8 mg/dL Normal [facility] Comment on above: Performed By: #### T SH, CMP, LIPID, T7, URIC #### [facility] [address] [address] [address] Shabnam Rae PROF 14(COMP METB)on 023 Albumin [Mass/Vol] 4.1 g/dL Normal 3.4-5.0 [facility] Comment on above: Performed By: #### T SH, CMP, LIPID, T7, URIC #### [facility] [address] [address] [address] Shabnam Rae Albumin/Globulin [Mass ratio] 1.1 {ratio} Normal [facility] Comment on above: Performed By: #### T SH, CMP, LIPID, T7, URIC #### [facility] [address] [address] [address] Shabnam Rae ALP [Catalytic activity/Vol] 101 U/L Normal 46-116 [facility] Comment on above: Performed By: #### T SH, CMP, LIPID, T7, URIC #### [facility] [address] [address] [address] Shabnam Rae ALT [Catalytic activity/Vol] 26 U/L Normal 16-63 [facility] Comment on above: Performed By: #### T SH, CMP, LIPID, T7, URIC #### [facility] [address] [address] [address] Shabnam Rae Anion gap [Moles/Vol] 10.1 mmol/L Normal [facility] Comment on above: Performed By: #### T SH, CMP, LIPID, T7, URIC #### [facility] [address] [place] [address] Dr. Shabnam Rae AST [Catalytic activity/Vol] 19 U/L Normal 15-37 [facility] Comment on above: Performed By: #### T SH, CMP, LIPID, T7, URIC #### [facility] [address] [place] [address] Dr. Shabnam Rae Bilirubin [Mass/Vol] 0.8 mg/dL Normal 0.2-1.0 [facility] Comment on above: Performed By: #### T SH, CMP, LIPID, T7, URIC #### [facility] [address] [place] [address] Dr. Shabnam Rae Calcium [Mass/Vol] 9.5 mg/dL Normal 8.5-10.1 [facility] Comment on above: Performed By: #### T SH, CMP, LIPID, T7, URIC #### [facility] [address] [place] [address] Dr. Shabnam Rae Chloride [Moles/Vol] 102 mmol/L Normal 98-107 [facility] Comment on above: Performed By: #### T SH, CMP, LIPID, T7, URIC #### [facility] [address] [place] [address] Dr. Shabnam Rae CO2 [Moles/Vol] 32.4 mmol/L Critically high 21.0-32.0 [facility] Comment on above: Performed By: #### T SH, CMP, LIPID, T7, URIC #### [facility] [address] [place] [address] Dr. Shabnam Rae Creatinine [Mass/Vol] 1.00 mg/dL Normal 0.70-1.30 [facility] Comment on above: Performed By: #### T SH, CMP, LIPID, T7, URIC #### [facility] [address] [place] [address] Dr. Shabnam Rae EGFR-AF [place] ISLANDER >60 Normal >=60 [facility] Comment on above: Performed By: #### T SH, CMP, LIPID, T7, URIC #### [facility] [address] [address] [address] Shabnam Rae EGFR-NON AF [place]LANDER >60 Normal >=60 [facility] Comment on above: Performed By: #### T SH, CMP, LIPID, T7, URIC #### [facility] [address] [place] [address] Dr. Shabnam Rae Globulin (S) [Mass/Vol] 3.8 g/dL Normal [facility] Comment on above: Performed By: #### T SH, CMP, LIPID, T7, URIC #### [facility] [address] [place] [address] Dr. Shabnam Rae Glucose [Mass/Vol] 94 mg/dL Normal 74-106 [facility] Comment on above: Performed By: #### T SH, CMP, LIPID, T7, URIC #### [facility] [address] [place] [address] Dr. Shabnam Rae Potassium [Moles/Vol] 3.5 mmol/L Normal 3.5-5.1 [facility] Comment on above: Performed By: #### T SH, CMP, LIPID, T7, URIC #### [facility] [address] [place] [address] Dr. Shabnam Rae Protein [Mass/Vol] 7.9 g/dL Normal 6.4-8.2 [facility] Comment on above: Performed By: #### T SH, CMP, LIPID, T7, URIC #### [facility] [address] [address] [address] Shabnam Rae Sodium [Moles/Vol] 141 mmol/L Normal 136-145 [facility] Comment on above: Performed By: #### T SH, CMP, LIPID, T7, URIC #### [facility] [address] [place] [address] Dr. Shabnam Rae Urea nitrogen [Mass/Vol] 15.0 mg/dL Normal 7.0-18.0 [facility] Comment on above: Performed By: #### T SH, CMP, LIPID, T7, URIC #### [facility] [address] [place] [address] Dr. Shabnam Rae Urea nitrogen/Creatinine [Mass ratio] 15.0 mg/mg Normal [facility] Comment on above: Performed By: #### T SH, CMP, LIPID, T7, URIC #### [facility] [address] [place] [address] Dr. Shabnam Rae TSHon 12-01-2022 TSH 1.504 uIU/mL Normal 0.358-3.740 [facility] Comment on above: Performed By: #### T SH, CMP, LIPID, T7, URIC #### [facility] [address] [place] [address] Dr. Shabnam Rae URIC ACID SERUMon 12-01-2022 Urate [Mass/Vol] 6.9 mg/dL Normal 3.5-7.2 [facility] Comment on above: Performed By: #### T SH, CMP, LIPID, T7, URIC #### [facility] [address] [place] [address] Dr. Shabnam Rae TESTOSTERONE, TOTALon 2021 Testosterone [Mass/Vol] 244 ng/dL Critically low 264-916 [facility] Comment on above: Result Comment: Adul t male reference interval is based on a population of healthy nonobese males (BMI <30) between 19 and 39 years old. Dima et.al. JCEM 2017,102;1370-9915. PMID: [id number]. Performed By: #### P SAFREE #### [facility] [address] [place] [address] Dr. Shabnam Rae TESTOSTERONE, FREE,DIRECT, T OTALon 03-16-2022 Free Testosterone(Direct) 2.1 pg/mL Critically low 7.2-24.0 [facility] Comment on above: Result Comment: Perf ormed at: BN Performed By: #### C VDTBH #### [facility] [address] [place] [address] Dr. Shabnam Rae Testosterone [Mass/Vol] 252 ng/dL Critically low 264-916 [facility] Comment on above: Result Comment: Adul t male reference interval is based on a population of healthy nonobese males (BMI <30) between 19 and 39 years old. adia Ch.al. JCEM 2017,102;7702-6033. PMID: [id number]. Performed at: Performed By: #### C [facility] #### [facility] [address] [address] [address] Shabnam Rae Formson 02-26-2022 Forms [id number] 7#1.00CD:[address] [facility] Screenson 02-26-2022 Screens [id number] 7#1.00CD:[address] [facility] Screens [id number] #1.00CD:[address] [facility] Urology Office/Clinic Noteon 02-26-2022 Urology [...] qualifying data (more content not included)... Normal [facility] Comment [...] Urnls Dip Stick Auto w/o Microscopy POC 61318 Your Care Team Attending Physician - Viola [...] Urnls Dip Stick Auto w/o Microscopy POC 15208 (02/25/2022) Bilirubin Urine Dipstick - Negative Blood Urine Dipstick - Negative Glucose Urine Dipstick - Negative Ketones Urine Dipstick - Negative Leukocytes Urine Dipstick - Negative Nitrite Urine Dipstick - Negative Protein Urine Dipstick - Negative Specific Reader Urine Dipstick - >=1.030 Urine Appearance Urine [...] the hydrocele for any changes. ? Take pmyp-kyl-qynaiwu and prescription medicines only as told by [...] t (more content not included)... Normal [facility] Patient Educationon 02-26-20 Patient Education Urology [...] the hydrocele for any changes. ? Take jwnq-izf-kmnqtys and prescription medicines only as told by [...] Reviewed: 09/10/2018 Elsevier Patient Education ? 2019 [employer] [facility] ED Note-Physicianon 02-04-20 ED Note-Physician [id number] 62#1.00CD:127 [facility] RAD - Ultrasound Reporton RAD - Ultrasound Report [id number] #1.00CD:[address] [facility] RAD - CT Reporton 02-02-2022 RAD - CT Report [id number] 55#1.00CD:[address] [facility] RAD - CT Report [id number] 75#1.00CD:[address] [facility] CBC AUTO DIFFon 01-05-2022 BASO # 0.0 103/ul Normal 0.0-0.1 [facility] Comment on above: Performed By: #### P SAFREE #### [facility] [address] [place] [address] Dr. Shabnam Rae Basophils/100 WBC (Bld) 0.6 % Normal 0.2-2.0 [facility] Comment on above: Performed By: #### P SAFREE #### [facility] [address] [place] [address] Dr. Shabnam Rae EO # 0.1 103/ul Normal 0.0-0.7 [facility] Comment on above: Performed By: #### P SAFREE #### [facility] [address] [place] [address] Dr. Shabnam Rae Eosinophils/100 WBC (Bld) 2.1 % Normal 0.9-7.0 [facility] Comment on above: Performed By: #### P SAFREE #### [facility] [address] [place] [address] Dr. Shabnam Rae Erythrocyte distribution width (RBC) [Ratio] 13.1 % Normal 11.0-15.0 [facility] Comment on above: Performed By: #### P SAFREE #### [facility] [address] [place] [address] Dr. Shabnam Rae Hematocrit (Bld) [Volume fraction] 43.1 % Normal 42.0-54.0 [facility] Comment on above: Performed By: #### P SAFREE #### [facility] [address] [place] [address] Dr. Shabnam Rae Hemoglobin (Bld) [Mass/Vol] 13.7 g/dL Critically low 14.0-18.0 [facility] Comment on above: Performed By: #### P SAFREE #### [facility] [address] [address] [address] Shabnam Rae IG # 0.04 10e3/ul Critically high 0.00-0.03 The [facility] Comment on above: Performed By: #### P SAFREE #### [facility] [address] [address] [address] Shabnam Rae IG % 0.6 % Critically high 0.0-0.5 The [facility] Comment on above: Performed By: #### P SAFREE #### [facility] [address] [address] [address] Shabnam Rae LYMPH # 0.9 103/ul Critically low 1.2-3.8 [facility] Comment on above: Performed By: #### P SAFREE #### [facility] [address] [address] [address] Shabnam Rae Lymphocytes/100 WBC (Bld) 13.1 % Critically low 20.5-60.0 [facility] Comment on above: Performed By: #### P SAFREE #### [facility] [address] [place] [address] Dr. Shabnam Rae MANUAL DIFF REQ NO Normal [facility] Comment on above: Performed By: #### P SAFREE #### [facility] [address] [address] [address] Shabnam Rae MCH (RBC) [Entitic mass] 29.5 pg Normal 25.9-34.0 [facility] Comment on above: Performed By: #### P SAFREE #### [facility] [address] [address] [address] Shabnam Rae MCHC (RBC) [Mass/Vol] 31.8 g/dL Normal 29.9-35.2 [facility] Comment on above: Performed By: #### P SAFREE #### [facility] [address] [address] [address] Shabnam Rae MCV (RBC) [Entitic vol] 92.9 fL Normal 80.0-94.0 [facility] Comment on above: Performed By: #### P SAFREE #### [facility] [address] [place] [address] Dr. Shabnam Rae MONO # 0.4 103/ul Normal 0.3-0.8 [facility] Comment on above: Performed By: #### P SAFREE #### [facility] [address] [place] [address] Dr. Shabnam Rae Monocytes/100 WBC (Bld) 5.4 % Normal 1.7-12.0 [facility] Comment on above: Performed By: #### P SAFREE #### [facility] [address] [place] [address] Dr. Shabnam Rae NEUT # 5.2 103/ul Normal 1.4-6.5 [facility] Comment on above: Performed By: #### P SAFREE #### [facility] [address] [place] [address] Dr. Shabnam Rae Neutrophils/100 WBC (Bld) 78.2 % Critically high 43.0-75.0 [facility] Comment on above: Performed By: #### P SAFREE #### [facility] [address] [place] [address] Dr. Shabnam Rae Platelet mean volume (Bld) [Entitic vol] 10.9 fL Normal 9.5-13.5 [facility] Comment on above: Performed By: #### P SAFREE #### [facility] [address] [place] [address] Dr. Shabnam Rae PLT 153 103/ul Normal 150-450 [facility] Comment on above: Performed By: #### P SAFREE #### [facility] [address] [place] [address] Dr. Shabnam Rae RBC 4.64 106/ul Critically low 4.70-6.10 [facility] Comment on above: Performed By: #### P SAFREE #### [facility] [address] [place] [address] Dr. Shabnam Rae WBC 6.6 103/ul Normal 4.0-11.0 [facility] Comment on above: Performed By: #### P SAFREE #### [facility] [address] [place] [address] Dr. Shabnam Rae CRPon 01-05-2022 CRP 0.9 mg/dL Normal <=1.0 [facility] Comment on above: Performed By: #### P SAFREE #### [facility] [address] [place] [address] Dr. Shabnam Rae PROF 14(COMP METB)on 022 Albumin [Mass/Vol] 3.6 g/dL Normal 3.4-5.0 [facility] Comment on above: Performed By: #### P SAFREE #### [facility] [address] [place] [address] Dr. Shabnam Rae Albumin/Globulin [Mass ratio] 1.0 {ratio} Normal [facility] Comment on above: Performed By: #### P SAFREE #### [facility] [address] [place] [address] Dr. Shabnam Rae ALP [Catalytic activity/Vol] 114 U/L Normal 46-116 [facility] Comment on above: Performed By: #### P SAFREE #### [facility] [address] [place] [address] Dr. Shabnam Rae ALT [Catalytic activity/Vol] 26 U/L Normal 16-63 [facility] Comment on above: Performed By: #### P SAFREE #### [facility] [address] [place] [address] Dr. Shabnam Rae Anion gap [Moles/Vol] 9.3 mmol/L Normal [facility] Comment on above: Performed By: #### P SAFREE #### [facility] [address] [place] [address] Dr. Shabnam Rae AST [Catalytic activity/Vol] 19 U/L Normal 15-37 [facility] Comment on above: Performed By: #### P SAFREE #### [facility] [address] [place] [address] Dr. Shabnam Rae Bilirubin [Mass/Vol] 0.5 mg/dL Normal 0.2-1.0 [facility] Comment on above: Performed By: #### P SAFREE #### [facility] [address] [place] [address] Dr. Shabnam Rae Calcium [Mass/Vol] 8.9 mg/dL Normal 8.5-10.1 [facility] Comment on above: Performed By: #### P SAFREE #### [facility] [address] [address] [address] Shabnam Rae Chloride [Moles/Vol] 106 mmol/L Normal 98-107 [facility] Comment on above: Performed By: #### P SAFREE #### [facility] [address] [place] [address] Dr. Shabnam Rae CO2 [Moles/Vol] 30.7 mmol/L Normal 21.0-32.0 [facility] Comment on above: Performed By: #### P SAFREE #### [facility] [address] [place] [address] Dr. Shabnam Rae Creatinine [Mass/Vol] 1.15 mg/dL Normal 0.70-1.30 [facility] Comment on above: Performed By: #### P SAFREE #### [facility] [address] [place] [address] Dr. Shabnam Rae EGFR-AF [place] ISLANDER >60 Normal >=60 [facility] Comment on above: Performed By: #### P SAFREE #### [facility] [address] [place] [address] Dr. Shabnam Rae EGFR-NON AF [place]ER >60 Normal >=60 [facility] Comment on above: Performed By: #### P SAFREE #### [facility] [address] [place] [address] Dr. Shabnam Rae Globulin (S) [Mass/Vol] 3.6 g/dL Normal [facility] Comment on above: Performed By: #### P SAFREE #### [facility] [address] [place] [address] Dr. Shabnam Rae Glucose [Mass/Vol] 117 mg/dL Critically high 74-[address] [facility] Comment on above: Performed By: #### P SAFREE #### [facility] [address] [place] [address] Dr. Shabnam Rae Potassium [Moles/Vol] 4.0 mmol/L Normal 3.5-5.1 [facility] Comment on above: Performed By: #### P SAFREE #### [facility] [address] [place] [address] Dr. Shabnam Rae Protein [Mass/Vol] 7.2 g/dL Normal 6.1-8.2 [facility] Comment on above: Performed By: #### P SAFREE #### [facility] [address] [place] [address] Dr. Shabnam Rae Sodium [Moles/Vol] 142 mmol/L Normal 136-145 [facility] Comment on above: Performed By: #### P SAFREE #### [facility] [address] [place] [address] Dr. Shabnam Rae Urea nitrogen [Mass/Vol] 15.0 mg/dL Normal 7.0-18.0 [facility] Comment on above: Performed By: #### P SAFREE #### [facility] [address] [place] [address] Dr. Shabnam Rae Urea nitrogen/Creatinine [Mass ratio] 13.0 mg/mg Normal [facility] Comment on above: Performed By: #### P SAFREE #### [facility] [address] [place] [address] Dr. Sahbnam Rae US SCROTUMon 01-05-2022 US SCROTUM EXAMINATION: [...] ALVINA CAICEDO Date: 2022-01-05 08:48 Normal [facility] CBC AUTO DIFFon 01-04-2022 BASO # 0.1 103/ul Normal 0.0-0.1 [facility] Comment on above: Performed By: #### C BC #### [facility] [address] [place] [address] Dr. Shabnam Rae Basophils/100 WBC (Bld) 0.8 % Normal 0.2-2.0 [facility] Comment on above: Performed By: #### C BC #### [facility] [address] [place] [address] Dr. Shabnam Rae EO # 0.1 103/ul Normal 0.0-0.7 [facility] Comment on above: Performed By: #### C BC #### [facility] [address] [place] [address] Dr. Shabnam Rae Eosinophils/100 WBC (Bld) 1.5 % Normal 0.9-7.0 [facility] Comment on above: Performed By: #### C BC #### [facility] [address] [place] [address] Dr. Shabnam Rae Erythrocyte distribution width (RBC) [Ratio] 12.8 % Normal 11.0-15.0 [facility] Comment on above: Performed By: #### C BC #### [facility] [address] [place] [address] Dr. Shabnam Rae Hematocrit (Bld) [Volume fraction] 40.3 % Critically low 42.0-54.0 [facility] Comment on above: Performed By: #### C BC #### [facility] [address] [place] [address] Dr. Shabnam Rae Hemoglobin (Bld) [Mass/Vol] 13.4 g/dL Critically low 14.0-18.0 [facility] Comment on above: Performed By: #### C BC #### [facility] [address] [address] [address] Shabnam Rae IG # 0.03 10e3/ul Normal 0.00-0.03 [facility] Comment on above: Performed By: #### C BC #### [facility] [address] [place] [address] Dr. Shabnam Rae IG % 0.5 % Normal 0.0-0.5 [facility] Comment on above: Performed By: #### C BC #### [facility] [address] [place] [address] Dr. Shabnam Rae LYMPH # 1.0 103/ul Critically low 1.2-3.8 [facility] Comment on above: Performed By: #### C BC #### [facility] [address] [place] [address] Dr. Shabnam Rae Lymphocytes/100 WBC (Bld) 16.4 % Critically low 20.5-60.0 [facility] Comment on above: Performed By: #### C BC #### [facility] [address] [place] [address] Dr. Shabnam Rae MANUAL DIFF REQ NO Normal [facility] Comment on above: Performed By: #### C BC #### [facility] [address] [place] [address] Dr. Shabnam Rae MCH (RBC) [Entitic mass] 29.5 pg Normal 25.9-34.0 [facility] Comment on above: Performed By: #### C BC #### [facility] [address] [place] [address] Dr. Shabnam Rae MCHC (RBC) [Mass/Vol] 33.3 g/dL Normal 29.9-35.2 [facility] Comment on above: Performed By: #### C BC #### [facility] [address] [place] [address] Dr. Shabnam Rae MCV (RBC) [Entitic vol] 88.8 fL Normal 80.0-94.0 [facility] Comment on above: Performed By: #### C BC #### [facility] [address] [place] [address] Dr. Shabnam Rae MONO # 0.6 103/ul Normal 0.3-0.8 [facility] Comment on above: Performed By: #### C BC #### [facility] [address] [place] [address] Dr. Shabnam Rae Monocytes/100 WBC (Bld) 9.6 % Normal 1.7-12.0 [facility] Comment on above: Performed By: #### C BC #### [facility] [address] [place] [address] Dr. Shabnam Rae NEUT # 4.4 103/ul Normal 1.4-6.5 [facility] Comment on above: Performed By: #### C BC #### [facility] [address] [place] [address] Dr. Shabnam Rae Neutrophils/100 WBC (Bld) 71.2 % Normal 43.0-75.0 [facility] Comment on above: Performed By: #### C BC #### [facility] [address] [place] [address] Dr. Shabnam Rae Platelet mean volume (Bld) [Entitic vol] 10.8 fL Normal 9.5-13.5 [facility] Comment on above: Performed By: #### C BC #### [facility] [address] [place] [address] Dr. Shabnam Rae PLT 158 103/ul Normal 150-450 [facility] Comment on above: Performed By: #### C BC #### [facility] [address] [place] [address] Dr. Shabnam Rae RBC 4.54 106/ul Critically low 4.70-6.10 [facility] Comment on above: Performed By: #### C BC #### [facility] [address] [place], [place] [address] Dr. Shabnam Rae WBC 6.2 103/ul Normal 4.0-11.0 [facility] Comment on above: Performed By: #### C BC #### [facility] [address] [place], [place] [address] ABD/PELV W CONon [...] MAYRA BERNAL Date: 2022-01-04 05:19 Normal [facility] CT PELVIS WO CONon 2 CT [...] MANUEL FRANCE Date: 2022-01-04 08:54 Normal [facility] CULTURE URINEon 01-04-2022 CULTURE URINE Culture Observations: No growth Normal [facility] Comment on above: Performed By: #### P [facility] #### [facility] [address] [place] [address] Dr. Shabnam Rae Covid-19 PCR ([facility])on 12-13 SARS-CoV-2 (COVID-19) RNA ELIJAH+probe Ql (Unsp spec) Not detected Normal NOT DETECTED [facility] Comment on above: Result Comment: When diagnostic testing is negative, the possibility of a false negative should be considered in the context of a patient's recent exposures and the presence of clinical signs and symptoms consistent with SARS-CoV-2. This test is not yet approved or cleared by the [place] Food and Drug Administration (FDA). This test was developed by [employer], [place], [place]. The performance characteristics of this test were validated by [facility]. The results are not intended to be used as the sole means for clinical diagnosis or patient management decisions. [facility] is authorized under Clinical Laboratory Improvement [...] for this test is supported by the [place] of Health and Human Service's declaration that [...] used). Performed By: #### C VDTB #### [facility] [address] [place] [address] Dr. Shabnam Rae ER URINE PROFILEon 2 Bilirubin Ql (U) Negative Normal NEGATIVE [facility] Comment on above: Performed By: #### P SASC #### [facility] [address] [place] [address] Dr. Shabnam Rae Clarity (U) CLEAR Normal CLEAR [facility] Comment on above: Performed By: #### P SASC #### [facility] [address] [place] [address] Dr. Shabnam Rae Color (U) YELLOW Normal YELLOW [facility] Comment on above: Performed By: #### P SASC #### [facility] [address] [address] [address] Shabnam HERNANDEZ A micrscopic examination will be performed if indicated. Normal [facility] Comment on above: Performed By: #### P SASC #### [facility] [address] [address] [address] Shabnam Rae Glucose Ql (U) Negative Normal NEGATIVE [facility] Comment on above: Performed By: #### P SASC #### [facility] [address] [address] [address] Shabnam Rae Hemoglobin Ql (U) Negative Normal NEGATIVE [facility] Comment on above: Performed By: #### P SASC #### [facility] [address] [address] [address] Shabnam Rae Ketones Ql (U) Negative Normal NEGATIVE [facility] Comment on above: Performed By: #### P SASC #### [facility] [address] [address] [address] Shabnam Rae LEUKOCYTES Negative Normal NEGATIVE [facility] Comment on above: Performed By: #### P SASC #### [facility] [address] [address] [address] Shabnam Rae Nitrite Ql (U) Negative Normal NEGATIVE [facility] Comment on above: Performed By: #### P SASC #### [facility] [address] [place] [address] Dr. Shabnam Rae pH (U) 6.5 [pH] Normal 5-9 [facility] Comment on above: Performed By: #### P SASC #### [facility] [address] [address] [address] Shabnam Rae SPEC GRAVITY 1.010 Normal 1.005-<=1.025 [facility] Comment on above: Performed By: #### P SASC #### [facility] [address] [place] [address] Dr. Shabnam Rae UA PROTEIN Negative Normal NEGATIVE/ TRACE [facility] Comment on above: Performed By: #### P SASC #### [facility] [address] [address] [address] Shabnam Rae UR MICRO IND NOT INDICATED Normal [facility] Comment on above: Performed By: #### P SASC #### [facility] [address] [place] [address] Dr. Shabnam Rae Urobilinogen Qn (U) 0.2 {Sarai'U}/dL Normal 0.2 - 1. 0 [facility] Comment on above: Performed By: #### P SASC #### [facility] [address] [place] [address] Dr. Shabnam Rae LACTATE/LACTIC ACIDon 2021 Lactate [Moles/Vol] 1.0 mmol/L Normal 0.4-2.0 [facility] Comment on above: Performed By: #### P SASC #### [facility] [address] [place] [address] Dr. Shabnam Rae PROF CHEM 8 (BAS METB)on Anion gap [Moles/Vol] 10.0 mmol/L Normal [facility] Comment on above: Performed By: #### B MP #### [facility] [address] [place] [address] Dr. Shabnam Rae Calcium [Mass/Vol] 8.5 mg/dL Normal 8.5-10.1 [facility] Comment on above: Performed By: #### B MP #### [facility] [address] [place] [address] Dr. Shabnam Rae Chloride [Moles/Vol] 103 mmol/L Normal 98-107 [facility] Comment on above: Performed By: #### B MP #### [facility] [address] [place] [address] Dr. Shabnam Rae CO2 [Moles/Vol] 29.2 mmol/L Normal 21.0-32.0 [facility] Comment on above: Performed By: #### B MP #### [facility] [address] [place] [address] Dr. Shabnam Rae Creatinine [Mass/Vol] 1.25 mg/dL Normal 0.70-1.30 [facility] Comment on above: Performed By: #### B MP #### [facility] [address] [address] [address] Shabnam Rae EGFR-AF [place] ISLANDER >60 Normal >=60 [facility] Comment on above: Performed By: #### B MP #### [facility] [address] [id number] [address] Shabnam Rae EGFR-NON AF [place]ER >60 Normal >=60 [facility] Comment on above: Performed By: #### B MP #### [facility] [address] [address] [address] Shabnam Rae Glucose [Mass/Vol] 132 mg/dL Critically high 74-106 [facility] Comment on above: Performed By: #### B MP #### [facility] [address] [address] [address] Shabnam Rae Potassium [Moles/Vol] 3.2 mmol/L Critically low 3.5-5.1 [facility] Comment on above: Performed By: #### B MP #### [facility] [address] [address] [address] Shabnam Rae Sodium [Moles/Vol] 139 mmol/L Normal 136-145 [facility] Comment on above: Performed By: #### B MP #### [facility] [address] [address] [address] Shabnam Rae Urea nitrogen [Mass/Vol] 19.0 mg/dL Critically high 7.0-18.0 [facility] Comment on above: Performed By: #### B MP #### [facility] [address] [address] [address] Shabnam Rae Urea nitrogen/Creatinine [Mass ratio] 15.2 mg/mg Normal [facility] Comment on above: Performed By: #### B MP #### [facility] [address] [place], [place] [id number] Dr. Shabnam Rae CERVICAL SPINE 2 OR 3 [facility] 07-06-2019 CERVICAL SPINE [address] [facility] Department of Radiology [address] [place] [id number] Patient Name: MATTY GARCES : 1970 Sex: M Age: Race: White Pt. Location: 85 Patient Status: O Ordered Date: 07/06/2019 9:10:00 AM Completed Date: 07/06/2019 09:21 AM Requesting Provider: ULCIANO VIEIRA Attending Provider: LUCIANO VIEIRA Report Copy To: VENUS MENDEZ Signs & Symptoms: M48.02 Spinal stenosis, cervical region I10 History: [place] Comments: , STAT READ , STAT READ [...] findings. Electronically signed by:Bernice Hoyt. Transcribed by: [email or web address], User Resident: RADHA CHIN Electronically Signed by: BERNICE HOYT @ 07/06/2019 08:52 PM I personally read this/these film(s) with this resident Normal [facility] Comment on above: Order Comment: , STA T READ , STAT READ , , , Ordering Provider - LUCIANO VIEIRA MD , CERVICAL SPINE 2 OR 3 [facility] 04-06-2019 CERVICAL SPINE 2 OR 3 [facility] Department of Radiology [address] [place] [id number] Patient Name: MATTY GARCES : 1970 [...] FALLS Exam: CERVICAL SPINE 2 OR 3 [facility] CERVICAL SPINE 2 OR 3 S [...] study. Electronically signed by:Bernice Hoyt. Transcribed by: [email or web address], User Resident: Electronically Signed by: BERNICE HOYT @ 04/06/2019 04:[address] [facility] Comment on above: Order Comment: AP/LA T, ODONTOID PLEASE DO SWIMMER'S VIEW FOLLOW UP HARDWARE AND ALIGNMENT, S/P ACDF, RECENT FALLS CERVICAL SPINE 2 OR 3 [facility] 02-17-2019 CERVICAL SPINE 2 OR 3 [facility] Department of Radiology [address] [place] [id number] Patient Name: MATTY GARCES : 1970 [...] findings. Electronically signed by:Bella King. Transcribed by: [email or web address], User Resident: EMILE TINAJERO Electronically Signed by: BELLA KING @ 02/20/2019 11:53 AM I personally read this/these film(s) with this resident Normal [facility] Comment on above: Order Comment: C-SPI NE 2 OR 3 VIEW POSTOP, EVALUATION HARDWARE AN ALIGNMENT BASIC METABOLIC PANELon 05-2 Calcium [Mass/Vol] 9.2 mg/dL Normal 8.6-10.3 [facility] Comment on above: Order Comment: No: D o not add to previous draw Performed By: #### 5 0103 #### [facility] [address] [place] [address], [place] Chloride [Moles/Vol] 101 mmol/L Normal 98-[address] [facility] Comment on above: Order Comment: No: D o not add to previous draw Performed By: #### 5 0103 #### [facility] [address] [place] [address], [place] CO2 [Moles/Vol] 26 mmol/L Normal 21-31 [facility] Comment on above: Order Comment: No: D o not add to previous draw Performed By: #### 5 0103 #### [facility] [address] [place] [address], [place] Creatinine [Mass/Vol] 1.02 mg/dL Normal 0.70-1.[address] [facility] Comment on above: Order Comment: No: D o not add to previous draw Performed By: #### 5 0103 #### [facility] [address] [place] [address], [place] GFR/1.73 sq M predicted among blacks MDRD (S/P/Bld) [Vol rate/Area] mL/min/{1.73_m2} Normal >[address] [facility] Comment on above: Order Comment: No: D o not add to previous draw Performed By: #### 5 0103 #### [facility] [address] [place] [address], [place] GFR/1.73 sq M predicted among non-blacks MDRD (S/P/Bld) [Vol rate/Area] mL/min/{1.73_m2} Normal >[address] [facility] Comment on above: Order Comment: No: D o not add to previous draw Performed By: #### 5 0103 #### [facility] [address] [place] [address], [place] Glucose [Mass/Vol] 124 mg/dL High 70-100 [facility] Comment on above: Order Comment: No: D o not add to previous draw Performed By: #### 5 0103 #### [facility] [address] [place] [address], [place] Potassium [Moles/Vol] 3.9 mmol/L Normal 3.5-5.[address] [facility] Comment on above: Order Comment: No: D o not add to previous draw Performed By: #### 5 0103 #### [facility] [address] [place] [address], [place] Sodium [Moles/Vol] 137 mmol/L Normal 136-145 [facility] Comment on above: Order Comment: No: D o not add to previous draw Performed By: #### 5 0103 #### [facility] [address] [place] [address], [place] Urea nitrogen [Mass/Vol] 15 mg/dL Normal 7-[address] [facility] Comment on above: Order Comment: No: D o not add to previous draw Performed By: #### 5 0103 #### [facility] [address] [place] [address], [place] CBC COMPLETE BLOOD COUNTon - Erythrocyte distribution width (RBC) [Ratio] 13.9 % Normal 11.5-15.[address] [facility] Comment on above: Order Comment: No: D o not add to previous draw Performed By: #### 5 0103 #### [facility] [address] Hematocrit (Bld) [Volume fraction] 50.0 % Normal 39.0-50.[address] [facility] Comment on above: Order Comment: No: D o not add to previous draw Performed By: #### 5 0103 #### [facility] [address] [place] [id number], [facility] Hemoglobin (Bld) [Mass/Vol] 16.0 g/dL Normal 13.0-17.[address] [facility] Comment on above: Order Comment: No: D o not add to previous draw Performed By: #### 5 0103 #### [facility] [address] [facility] [place] [address], [facility] MCH (RBC) [Entitic mass] 27.5 pg Normal 27.0-33.[address] [facility] Comment on above: Order Comment: No: D o not add to previous draw Performed By: #### 5 0103 #### [facility] [address] MCHC (RBC) [Mass/Vol] 32.0 g/dL Normal 32.0-35.[address] [facility] Comment on above: Order Comment: No: D o not add to previous draw Performed By: #### 5 0103 #### [facility] [address] [facility] [place] [address], [facility] MCV (RBC) [Entitic vol] 85.9 fL Normal 82.0-98.[address] [facility] Comment on above: Order Comment: No: D o not add to previous draw Performed By: #### 5 0103 #### [facility] [address] [facility] [place] [address], [facility] Nucleated RBC/100 WBC (Bld) [Ratio] 0 % Normal 0-[address] [facility] Comment on above: Order Comment: No: D o not add to previous draw Performed By: #### 5 0103 #### [facility] [address] PLAT CNT 249 10*3/uL Normal 150-400 [facility] Comment on above: Order Comment: No: D o not add to previous draw Performed By: #### 5 0103 #### [facility] [address] [place] [address], [facility] RBC (Bld) [#/Vol] 5.82 10*6/uL High 4.20-5.70 [facility] Comment on above: Order Comment: No: D o not add to previous draw Performed By: #### 5 0103 #### [facility] [address] [place] [address], [facility] WBC (Bld) [#/Vol] 15.85 10*3/uL High 4.00-10.60 [facility] Comment on above: Order Comment: No: D o not add to previous draw Performed By: #### 5 0103 #### [facility] [address] Operative Reporton 9 Operative Report MR#: [id number] [facility] Pt. Name: Matty Garces Room #: [id number] Discharge Date: Birthdate: 1970 OPERATIVE REPORT DATE OF SURGERY: 01/30/2019 SURGEON: Luciano Vieira M.D. 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 POSTOPERATIVE DIAGNOSIS: Failed instrumentation at C6-7 on the right. ALGEBRAIST: ADENIKE Lugo. ANESTHESIA: Endotracheal, Hogan. PROCEDURES: Redo [...] Vieira M.D. Date Trans: 01/31/2019 02:31 Eze/sasha [id number] cc: Venus Mendez M.D. [address] [place] [address] Normal [facility] CERVICAL SPINE 2 OR 3 [facility] 01-30-2019 CERVICAL SPINE 2 OR 3 [facility] Department of Radiology [address] [place] [phone] Patient Name: MATTY GARCES : 1970 Sex: M Age: Race: White Pt. Location: Patient Status: O Ordered Date: 01/30/2019 7:05:00 AM Completed Date: 01/30/2019 04:12 PM Requesting Provider: LUCIANO VIEIRA Attending Provider: LUCIANO VIEIRA Report Copy To: Signs & Symptoms: C6-7 ACDF History: C6-7 ACDF Comments: C6-7 ACDF Exam: CERVICAL SPINE 2 OR 3 [facility] CERVICAL SPINE 2 OR 3 [facility] 01/30/2019 4:12 PM EDT SIGNS AND SYMPTOMS: C6-7 ACDF TECHNOLOGIST COMMENTS: Intra op ACDF C6-7 with , 30 sec of fluoro time used QUESTION FOR THE RADIOLOGIST: C6-7 ACDF PROTOCOLS: AP, Odontoid and Lateral views were obtained. COMPARISON: None FINDINGS: 5 images were obtained. Fluoroscopic time as utilized above. IMPRESSION: For documentation Electronically signed by:Justus Montano. Transcribed by: [email or web address], User Resident: Electronically Signed by: JUSTUS MONTANO @ 01/30/2019 04:18 PM Normal [facility] Comment on above: Order Comment: C6-7 ACDF POC GLUCOSE LABon 01-30-2019 Glucose [Mass/Vol] 106 mg/dL High 70-100 [facility] Comment on above: Performed By: #### 5 0103 #### [facility] [address] [facility]. [address] *MRSA/MSSA DNA NASALon 01-23 *MRSA/MSSA DNA NASAL Clinical Report: (D ) Specimen: NASAL SWAB Collected: 01/23/2019 15:02 Status: Final Last Updated: 01/23/2019 20:14 MSSA DNA (Final) Methicillin Susceptible Staphylococcus aureus DNA Detected MRSA DNA (Final) No Methicillin Resistant Staphylococcus aureus DNA Detected Normal [facility] Comment on above: Performed By: #### 5 0103 #### [facility] [address] APTTon 01-23-2019 aPTT Coag (Bld) [Time] 35.4 s High 25.0-35.[address] [facility] Comment on above: Result Comment: ALL [...] THIS PURPOSE. Performed By: #### 5 7307, 05490 #### [facility] [address] [facility]. [address] BASIC METABOLIC PANELon 01-11 Calcium [Mass/Vol] 9.5 mg/dL Normal 8.6-10.3 [facility] Comment on above: Performed By: #### 5 7307, 14891 #### [facility] [address] Chloride [Moles/Vol] 101 mmol/L Normal 98-[address] [facility] Comment on above: Performed By: #### 5 7307, 79735 #### [facility] [address] [place] [address], [place] CO2 [Moles/Vol] 29 mmol/L Normal 21-31 [facility] Comment on above: Performed By: #### 5 73, 97119 #### [facility] [address] [place] [address], [place] Creatinine [Mass/Vol] 1.08 mg/dL Normal 0.70-1.[address] [facility] Comment on above: Performed By: #### 5 7306, 34920 #### [facility] [address] [place] [address], [place] GFR/1.73 sq M predicted among blacks MDRD (S/P/Bld) [Vol rate/Area] mL/min/{1.73_m2} Normal >[address] [facility] Comment on above: Performed By: #### 5 7306, 69924 #### [facility] [address] [place] [address], [place] GFR/1.73 sq M predicted among non-blacks MDRD (S/P/Bld) [Vol rate/Area] mL/min/{1.73_m2} Normal >[address] [facility] Comment on above: Performed By: #### 5 7306, 59002 #### [facility] [address] [place] [address], [place] Glucose [Mass/Vol] 87 mg/dL Normal 70-100 [facility] Comment on above: Performed By: #### 5 7306, 97575 #### [facility] [address] [place] [address], [place] Potassium [Moles/Vol] 4.0 mmol/L Normal 3.5-5.[address] [facility] Comment on above: Performed By: #### 5 7306, 17039 #### [facility] [address] [place] [address], [place] Sodium [Moles/Vol] 137 mmol/L Normal 136-145 [facility] Comment on above: Performed By: #### 5 7307, 46603 #### [facility] [address] Urea nitrogen [Mass/Vol] 12 mg/dL Normal 7-[address] [facility] Comment on above: Performed By: #### 5 73Al, 06820 #### [facility] [address] CBC W/DIFFon 01-23-2019 ABS BASOPHILS 0.1 10*3/uL Normal 0.0-0.2 [facility] Comment on above: Performed By: #### 5 73Al, 41006 #### [facility] [address] ABS IMM GRANS 0.0 10*3/uL Normal 0.0-0.2 [facility] Comment on above: Performed By: #### 5 Al, 22066 #### [facility] [address] ABS NEUTROPHILS 5.3 10*3/uL Normal 1.6-7.6 [facility] Comment on above: Performed By: #### 5 Al, 93617 #### [facility] [address] Basophils/100 WBC (Bld) 0.9 % Normal 0.0-1.[address] [facility] Comment on above: Performed By: #### 5 73Al, 79239 #### [facility] [address] [place] [address], [facility] Eosinophils (Bld) [#/Vol] 0.2 10*3/uL Normal 0.0-0.[address] [facility] Comment on above: Performed By: #### 5 73Al, 03817 #### [facility] [address] [facility] [facility] [place] [address], [facility] Eosinophils/100 WBC (Bld) 2.3 % Normal 0.0-6.[address] [facility] Comment on above: Performed By: #### 5 7306, 44675 #### [facility] [address] Erythrocyte distribution width (RBC) [Ratio] 13.8 % Normal 11.5-15.[address] [facility] Comment on above: Performed By: #### 7306, 01090 #### [facility] [address] [facility] [place] [address], [facility] Hematocrit (Bld) [Volume fraction] 49.6 % Normal 39.0-50.[address] [facility] Comment on above: Performed By: #### 7306, 35065 #### [facility] [address] Hemoglobin (Bld) [Mass/Vol] 16.4 g/dL Normal 13.0-17.[address] [facility] Comment on above: Performed By: #### 7306, 11607 #### [facility] [address] [place] [address], [facility] IMMATURE GRANS 0.5 % Normal 0.0-1.0 [facility] Comment on above: Performed By: #### 5 7306, 63334 #### [facility] [address] [facility] [place] [address], [facility] Lymphocytes (Bld) [#/Vol] 1.2 10*3/uL Normal 1.2-4.[address] [facility] Comment on above: Performed By: #### 5 7306, 14155 #### [facility] [address] [facility] [place] [address], [facility] Lymphocytes/100 WBC (Bld) 16.6 % Low 20.0-45.[address] [facility] Comment on above: Performed By: #### 5 7306, 66532 #### [facility] [address] [place] [id number], [facility] MCH (RBC) [Entitic mass] 27.8 pg Normal 27.0-33.[address] [facility] Comment on above: Performed By: #### 5 7306, 83917 #### [facility] [address] [place] [address], [facility] MCHC (RBC) [Mass/Vol] 33.1 g/dL Normal 32.0-35.[address] [facility] Comment on above: Performed By: #### 5 7306, 11062 #### [facility] [address] [place] [address], [facility] MCV (RBC) [Entitic vol] 84.2 fL Normal 82.0-98.[address] [facility] Comment on above: Performed By: #### 5 7306, 05639 #### [facility] [address] [place] [address], [facility] Monocytes (Bld) [#/Vol] 0.7 10*3/uL Normal 0.1-1.[address] [facility] Comment on above: Performed By: #### 5 7306, 77377 #### [facility] [address] [place] [address], [facility] MONOS 9.4 % Normal 5.0-12.[address] [facility] Comment on above: Performed By: #### 5 7306, 49222 #### [facility] [address] [place] [address], [facility] Neutrophils/100 WBC (Bld) 70.3 % Normal 40.0-72.[address] [facility] Comment on above: Performed By: #### 5 7306, 76183 #### [facility] [address] [place] [address], [facility] Nucleated RBC/100 WBC (Bld) [Ratio] 0 % Normal 0-[address] [facility] Comment on above: Performed By: #### 5 7306, 36600 #### [facility] [address] [place] [address], [facility] PLAT CNT 235 10*3/uL Normal 150-400 [facility] Comment on above: Performed By: #### 5 7307, 62369 #### [facility] [address] [facility] [place] [address], [facility] RBC (Bld) [#/Vol] 5.89 10*6/uL High 4.20-5.70 [facility] Comment on above: Performed By: #### 5 7307, 67493 #### [facility] [address] [facility] [place] [address], [facility] WBC (Bld) [#/Vol] 7.48 10*3/uL Normal 4.00-10.60 [facility] Comment on above: Performed By: #### 5 7307, 53131 #### [facility] [address] [facility] PROTHROMBIN TIMEon 9 INR Coag (PPP) [Relative time] 1.12 {INR} Normal 0.91-1.[address] [facility] Comment on above: Result Comment: ACCC [...] CHEST 1995;108:231S-246S. Performed By: #### 5 7307, 11065 #### [facility] [address] PT Coag (PPP) [Time] 14.4 s Normal 12.3-14.[address] [facility] Comment on above: Result Comment: ALL RESULTS MUST BE INTERPRETED WITH RESPECT TO BLOOD DRAWING ARTIFACT OR DILUTION ERROR OF ANTICOAGULANT AT THE TIME OF SAMPLING. Performed By: #### 5 7307, 77766 #### [facility] [address] [facility]. [address] TYPE AND SCREENon 01-23-2019 ABO INTERPRETATION A Normal [facility] Comment on above: Performed By: #### 5 7307, 21086 #### [facility] [address] [facility] [address] RH INTERPRETATION Positive Normal The [facility] Comment on above: Performed By: #### 5 7307, 74397 #### [facility] [address] [facility]. [address] 3D CERVICAL SPINE WO CONT RASTon 01-12-2019 CT 3D CERVICAL SPINE WO CONTRAST [facility] Department of Radiology [address] [place] [phone] Patient Name: MATTY GARCES : 1970 Sex: M Age: Race: White Pt. Location: Patient Status: D Ordered Date: 01/10/2019 2:15:00 PM Completed Date: 01/12/2019 10:32 AM Requesting Provider: LUCIANO VIEIRA Attending Provider: LUCIANO VIEIRA Report Copy To: VENUS MENDEZ Signs & Symptoms: M48.02 Spinal stenosis, cervical region I10 History: Althea para auth # [id number] 01/10/19-02/09/19 [id number] *er Comments: Exam: CT 3D CERVICAL SPINE [...] incomplete Electronically signed by:Ten Garland. Transcribed by: [email or web address], User Resident: Electronically Signed by: TEN GARLAND @ 01/13/2019 09:18 AM Normal [facility] CERVICAL SPINE 2 OR 3 [facility] 01-05-2019 CERVICAL SPINE 2 OR 3 [facility] Department of Radiology [address] [place] [phone] Patient Name: MATTY GARCES : 1970 Sex: M Age: Race: White Pt. Location: Patient Status: O Ordered Date: 01/05/2019 9:00:00 AM Completed Date: 01/05/2019 09:06 AM Requesting Provider: LUCIANO VIEIRA Attending Provider: LUCIANO VIEIRA Report Copy To: Signs & Symptoms: M48.02 Spinal stenosis, cervical region I10 History: [place] Comments: , , , Ordering Provider - LUCIANO VIEIRA MD , Exam: CERVICAL SPINE 2 OR 3 [facility] CERVICAL SPINE 2 OR 3 [facility] 01/05/2019 9:06 AM EDT SIGNS AND [...] findings. Electronically signed by:Ten Garland. Transcribed by: [id number], User Resident: SHELLY DELA CRUZ Electronically Signed by: TEN GARLAND @ 01/05/2019 12:37 PM I personally read this/these film(s) with this resident Normal [facility] Comment on above: Order Comment: , , = ========= , Ordering Provider - LUCIANO VIEIRA MD , CERVICAL SPINE 2 OR 3 [facility] 08-30-2018 CERVICAL SPINE 2 OR 3 [facility] Department of Radiology [address] [place] [phone] Patient Name: MATTY GARCES : 1970 [...] findings. Electronically signed by:Bella King. Transcribed by: [email or web address], User Resident: RYAN HEAD Electronically Signed by: BELLA KING @ 08/30/2018 05:45 PM I personally read this/these film(s) with this resident Normal [facility] Comment on above: Order Comment: , POS T OP XRAY AP/LAT ONLY , POST OP XRAY AP/LAT ONLY , , , Ordering Provider - LUCIANO VIEIRA MD , Operative Reporton 8 Operative Report MR#: [id number] [facility] Pt. Name: Matty Garces Room #: [id number] Discharge Date: Birthdate: 1970 OPERATIVE REPORT DATE OF SURGERY: 08/17/2018 SURGEON: Luciano Vieira M.D. PREOPERATIVE DIAGNOSIS: Herniated cervical disk at C6-7. POSTOPERATIVE DIAGNOSIS: Herniated cervical disk at C6-7. ALGEBRAIST: ADENIKE Larios. ANESTHESIA: Endotracheal, Braida. PROCEDURE: Anterior [...] Vieira M.D. Date Trans: 08/17/2018 11:25 P/sasha [id number] cc: Vensu Mendez M.D. [address] [facility] [phone] [place] [address] [facility] CERVICAL SPINE 2 OR 3 [facility] 08-17-2018 CERVICAL SPINE 2 OR 3 [facility] Department of Radiology [address] [place] [phone] Patient Name: MATTY GARCES : 1970 [...] findings. Electronically signed by:Bernice Hoyt. Transcribed by: [email or web address], User Resident: EMILE TINAJERO Electronically Signed by: BERNICE HOYT @ 08/18/2018 01:06 PM I personally read this/these film(s) with this resident Normal [facility] Comment on above: Order Comment: C6-7 ACDF with POC GLUCOSE LABon 08-17-2018 Glucose [Mass/Vol] 113 mg/dL High 70-100 [facility] Comment on above: Performed By: #### 8 5499 #### [facility] [address] [place] [address], [facility] RBC'S 2 UNITSon 08-17-2018 CROSSMATCH INTERP 1 COMP Normal [facility] Comment on above: Performed By: #### 8 6002 #### [facility] [address] [place] [address], [facility] CROSSMATCH INTERP 2 COMP Normal [facility] Comment on above: Performed By: #### 8 6002 #### [facility] [address] [place] [address], [facility] PRODUCT CODE 1 E0336 Normal [facility] Comment on above: Performed By: #### 8 6002 #### [facility] [address] [place] [address], [facility] PRODUCT CODE 2 E0336 Normal [facility] Comment on above: Performed By: #### 8 6002 #### [facility] [address] [place] [address], [facility] PRODUCT STATUS 1 RE Normal [facility] Comment on above: Result Comment: Resu lt changed by IF on 08/20/2018 07:48. The previous value was XM. Performed By: #### 8 6002 #### [facility] [address] [place] [address], [facility] PRODUCT STATUS 2 RE Normal [facility] Comment on above: Result Comment: Resu lt changed by IF on 08/20/2018 07:48. The previous value was XM. Performed By: #### 8 6002 #### [facility] [address] UNIT ABO 1 A Normal [facility] Comment on above: Performed By: #### 8 6002 #### [facility] [address] UNIT ABO 2 A Normal [facility] Comment on above: Performed By: #### 8 6002 #### [facility] [address] [facility] [address] UNIT ID 1 [id number] Normal [facility] Comment on above: Performed By: #### 8 6002 #### [facility] [address] [facility]. [address] UNIT ID 2 [id number] Normal [facility] Comment on above: Performed By: #### 8 6002 #### [facility] [address] [facility]. [address] UNIT RH 1 Positive Normal [facility] Comment on above: Performed By: #### 8 6002 #### [facility] [address] [facility]. [address] UNIT RH 2 Positive Normal [facility] Comment on above: Performed By: #### 8 6002 #### [facility] [address] [facility]. [address] *MRSA/MSSA CULTUREon 08-02- 018 *MRSA/MSSA CULTURE Clinical Report: (D) Specimen: NASAL SWAB Collected: 08/02/2018 12:37 Status: Final Last Updated: 08/03/2018 14:26 ISO (Final) No Methicillin Resistant Staphylococcus aureus Isolated (MRSA) ISO (Final) Methicillin Sensitive Staphylococcus aureus (MSSA) Isolated Normal [facility] Comment on above: Performed By: #### 3 1302 #### [facility] [address] APTTon 08-02-2018 aPTT Coag (Bld) [Time] 31.2 s Normal 25.0-35.0 [facility] Comment on above: Result Comment: ALL RESULTS [...] THIS PURPOSE. Performed By: #### 5 7307, 89550 #### [facility] [address] [place] [address], [facility] BASIC METABOLIC PANELon 07-15 Calcium [Mass/Vol] 9.4 mg/dL Normal 8.6-10.3 [facility] Comment on above: Performed By: #### 0 0071 #### [facility] [address] [place] [address], [facility] Chloride [Moles/Vol] 103 mmol/L Normal 98-107 [facility] Comment on above: Performed By: #### 0 0071 #### [facility] [address] [place] [address], [facility] CO2 [Moles/Vol] 29 mmol/L Normal 21-31 [facility] Comment on above: Performed By: #### 0 0071 #### [facility] [address] [place] [address], [facility] Creatinine [Mass/Vol] 1.06 mg/dL Normal 0.70-1.[address] [facility] Comment on above: Performed By: #### 0 0071 #### [facility] [address] [place] [address], [facility] GFR/1.73 sq M predicted among blacks MDRD (S/P/Bld) [Vol rate/Area] mL/min/{1.73_m2} Normal >[address] [facility] Comment on above: Performed By: #### 0 0071 #### [facility] [address] [place] [address], [facility] GFR/1.73 sq M predicted among non-blacks MDRD (S/P/Bld) [Vol rate/Area] mL/min/{1.73_m2} Normal >[address] [facility] Comment on above: Performed By: #### 0 0071 #### [facility] [address] [place] [address], [facility] Glucose [Mass/Vol] 84 mg/dL Normal 70-100 [facility] Comment on above: Performed By: #### 0 0071 #### [facility] [address] [place] [address], [facility] Potassium [Moles/Vol] 4.0 mmol/L Normal 3.5-5.1 [facility] Comment on above: Performed By: #### 0 0071 #### [facility] [address] [facility] [address], [facility] Sodium [Moles/Vol] 140 mmol/L Normal 136-145 [facility] Comment on above: Performed By: #### 0 0071 #### [facility] [address] [place] [address], [facility] Urea nitrogen [Mass/Vol] 20 mg/dL Normal 7-[address] [facility] Comment on above: Performed By: #### 0 0071 #### [facility] [address] [facility] [place] [address], [facility] CBC W/DIFFon 08-02-2018 ABS BASOPHILS 0.1 10*3/uL Normal 0.0-0.2 [facility] Comment on above: Performed By: #### 5 0103 #### [facility] [address] [facility] [place] [address], [facility] ABS IMM GRANS 0.1 10*3/uL Normal 0.0-0.2 [facility] Comment on above: Performed By: #### 5 0103 #### [facility] [address] [place] [address], [facility] CENTER ABS NEUTROPHILS 4.2 10*3/uL Normal 1.6-7.6 [facility] Comment on above: Performed By: #### 5 0103 #### [facility] [address] [facility] [place] [address], [facility] Basophils/100 WBC (Bld) 1.3 % High 0.0-1.[address] [facility] Comment on above: Performed By: #### 5 0103 #### [facility] [address] [facility] [place] [address], [facility] Eosinophils (Bld) [#/Vol] 0.1 10*3/uL Normal 0.0-0.[address] [facility] Comment on above: Performed By: #### 5 0103 #### [facility] [address] [facility] [place] [address], [facility] Eosinophils/100 WBC (Bld) 2.0 % Normal 0.0-6.[address] [facility] Comment on above: Performed By: #### 5 0103 #### [facility] [address] [facility] [place] [address], [facility] Erythrocyte distribution width (RBC) [Ratio] 13.6 % Normal 11.5-15.[address] [facility] Comment on above: Performed By: #### 5 0103 #### [facility] [address] [facility] [place] [address], [facility] Hematocrit (Bld) [Volume fraction] 44.3 % Normal 39.0-50.[address] [facility] Comment on above: Performed By: #### 5 0103 #### [facility] [address] Hemoglobin (Bld) [Mass/Vol] 15.1 g/dL Normal 13.0-17.[address] [facility] Comment on above: Performed By: #### 5 0103 #### [facility] [address] [facility] [place] [address], [facility] IMMATURE GRANS 1.1 % High 0.0-1.0 [facility] Comment on above: Performed By: #### 5 0103 #### [facility] [address] [place] [address], [facility] Lymphocytes (Bld) [#/Vol] 1.2 10*3/uL Normal 1.2-4.[address] [facility] Comment on above: Performed By: #### 5 0103 #### [facility] [address] [place] [address], [facility] Lymphocytes/100 WBC (Bld) 18.3 % Low 20.0-45.[address] [facility] Comment on above: Performed By: #### 5 0103 #### [facility] [address] [place] [address], [facility] MCH (RBC) [Entitic mass] 29.0 pg Normal 27.0-33.[address] [facility] Comment on above: Performed By: #### 5 0103 #### [facility] [address] [facility] [place] [address], [facility] MCHC (RBC) [Mass/Vol] 34.1 g/dL Normal 32.0-35.[address] [facility] Comment on above: Performed By: #### 5 0103 #### [facility] [address] [place] [address], [facility] MCV (RBC) [Entitic vol] 85.0 fL Normal 82.0-98.[address] [facility] Comment on above: Performed By: #### 5 3 #### [facility] [address] [facility] [place] [address], [facility] Monocytes (Bld) [#/Vol] 0.7 10*3/uL Normal 0.1-1.[address] [facility] Comment on above: Performed By: #### 5 0103 #### [facility] [address] [place] [id number], [facility] MONOS 11.1 % Normal 5.0-12.[address] [facility] Comment on above: Performed By: #### 5 0103 #### [facility] [address] [place] [address], [facility] Neutrophils/100 WBC (Bld) 66.2 % Normal 40.0-72.[address] [facility] Comment on above: Performed By: #### 5 102 #### [facility] [address] [facility] [place] [id number], [facility] Nucleated RBC/100 WBC (Bld) [Ratio] 0 % Normal 0-[address] [facility] Comment on above: Performed By: #### 5 102 #### [facility] [address] [facility] [place] [address], [facility] PLAT CNT 179 10*3/uL Normal 150-400 [facility] Comment on above: Performed By: #### 5 102 #### [facility] [address] [place] [id number], [facility] RBC (Bld) [#/Vol] 5.21 10*6/uL Normal 4.20-5.70 [facility] Comment on above: Performed By: #### 5 3 #### [facility] [address] [facility] [place] [id number], [facility] WBC (Bld) [#/Vol] 6.39 10*3/uL Normal 4.00-10.60 [facility] Comment on above: Performed By: #### 5 102 #### [facility] [address] [place] [address], [facility] CERVICAL SPINE 4 OR 5 VIEWSo n 08-02-2018 CERVICAL SPINE 4 OR [address] [facility] Department of Radiology [address] [place] [address] Patient Name: MATTY GARCES : 1970 Sex: M Age: Race: White Pt. Location: Patient Status: D Ordered Date: 08/02/2018 1:05:00 PM Completed Date: 08/02/2018 01:29 PM Requesting Provider: LUCIANO VIEIRA Attending Provider: LUCIANO VIEIRA Report Copy To: VENUS MENDEZ Signs & Symptoms: Z01.89 Encounter for other specified special examinations I10 History: [place] Comments: , PREOP XRAY AP/LAT \EANDE\ FLEX/EX [...] findings. Electronically signed by:Bella King. Transcribed by: [email or web address], User Resident: EMILE TINAJERO Electronically Signed by: BELLA KING @ 08/03/2018 11:58 AM I personally read this/these film(s) with this resident Normal [facility] Comment on above: Order Comment: , PRE OP XRAY AP/LAT \EANDE\ FLEX/EX , PREOP XRAY AP/LAT \EANDE\ FLEX/EX , , , Ordering Provider - LUCIANO VIEIRA MD , PROTHROMBIN TIMEon 8 INR Coag (PPP) [Relative time] 1.15 {INR} Normal 0.91-1.[address] [facility] Comment on above: Result Comment: ACCC [...] CHEST 1995;108:231S-246S. Performed By: #### 5 7307, [id number] #### [facility] [address] [place] [address], [facility] PT Coag (PPP) [Time] 14.7 s Normal 12.3-14.[address] [facility] Comment on above: Result Comment: ALL RESULTS MUST BE INTERPRETED WITH RESPECT TO BLOOD DRAWING ARTIFACT OR DILUTION ERROR OF ANTICOAGULANT AT THE TIME OF SAMPLING. Performed By: #### 5 7307, 04063 #### [facility] [address] [place] [address], [facility] TYPE AND SCREENon 08-02-2018 ABO INTERPRETATION A Normal The [facility] Comment on above: Order Comment: 2 uni ts 2 units 2 units 2 units 2 units Performed By: #### 6 2586 #### [facility] [address] [facility] [place] [address], [facility] RH INTERPRETATION Positive Normal The [facility] Comment on above: Order Comment: 2 uni ts 2 units 2 units 2 units 2 units Performed By: #### 6 2586 #### [facility] [address] [place] [address], [facility] URINALYSIS REFLEXon 08-02-20 18 Appearance (U) CLEAR Normal CLEAR [facility] Comment on above: Performed By: #### 3 0988 #### [facility] [address] [place] [address], [facility] Bilirubin [Mass/Vol] Negative Normal NEGATIVE [facility] Comment on above: Performed By: #### 3 0953 #### [facility] [address] [facility] [place] [address], [facility] BLOOD Negative Normal NEGATIVE [facility] Comment on above: Performed By: #### 3 0996 #### [facility] [address] [place] [id number], [facility] Color (U) YELLOW Normal YELLOW [facility] Comment on above: Performed By: #### 3 0965 #### [facility] [address] [place] [address], [facility] Glucose [Mass/Vol] 150 mg/dL Abnormal NEGATIVE [facility] Comment on above: Performed By: #### 3 0965 #### [facility] [address] [place] [address], [facility] KETONE Negative Normal NEGATIVE [facility] Comment on above: Performed By: #### 3 0965 #### [facility] [address] [place] [address], [place] Negative Normal NEGATIVE [facility] Comment on above: Performed By: #### 3 0965 #### [facility] [address] [place] [address], [facility] MICRO NOT DONE negative chemical reactions unless requested in original order Normal [facility] Comment on above: Performed By: #### 3 0965 #### [facility] [address] [place] [address], [facility] Nitrite Ql (U) Negative Normal NEGATIVE [facility] Comment on above: Performed By: #### 3 0965 #### [facility] [address] [place] [address], [facility] pH (Bld) 5.0 Normal 5.0-8.[address] [facility] Comment on above: Performed By: #### 3 0965 #### [facility] [address] [place] [address], [facility] Protein (U) [Mass/Vol] Negative Normal NEGATIVE [facility] Comment on above: Performed By: #### 3 0965 #### [facility] [address] [place] [address], [place] SPEC GRAV 1.024 High 1.015-1.020 [facility] Comment on above: Performed By: #### 3 0965 #### [facility] [address] Vital Signs Date Time Vital Sign Value Performing Clinician Molly bunn 02-25-2022 10:30-0400 Blood Pressure Location Viola Lue [facility] 02-25-2022 10:30-0400 Diastolic blood pressure 107 mm[Hg] Viola Lue [facility] 02-25-2022 10:30-0400 Heart rate 74 /min Viola Lue [facility] 02-25-2022 10:30-0400 Respiratory rate 16 /min Viola Lue [facility] 02-25-2022 10:30-0400 Systolic blood pressure 157 mm[Hg] Viola Lue [facility] Encounters Encounter Date Encounter Type Care Provider Facility Start: 01-10-2024 End: 01-11-2024 ambulatory VALENCIA Pate APLALEXI Not Available Start: 01-03-2024 End: 01-03-2024 ambulatory Trey Vallejo [facility] Work Phone: Start: 01-03-2024 End: 01-03-2024 Departed Referred DPM Trey Vallejo Work Phone: [facility] Start: 12-29-2023 End: 12-29-2023 ambulatory RUBÉN LOCO Not Available Start: 11-29-2023 End: 11-30-2023 ambulatory Diallo Beauchamp MD Facility:[facility] Start: 10-18-2023 End: 10-19-2023 ambulatory Diallo Beauchamp MD Facility:[facility] Start: 09-27-2023 End: 09-27-2023 ambulatory RUBÉN LOCO Not Available Start: 08-30-2023 End: 08-31-2023 ambulatory Diallo Beauchamp MD Facility:[facility] Start: 07-12-2023 End: 07-13-2023 ambulatory Diallo Beauchamp MD Facility:[facility] Start: 06-14-2023 End: 06-15-2023 ambulatory Diallo Beauchamp MD Facility:[facility] Start: 12-06-2022 End: 12-06-[address] VENUS MENDEZ . Facility: Start: 12-05-2022 Encounter for genera l adult medical examination without abnormal findings DR VENUS MENDEZ . [facility] Start: 12-01-2022 End: 12-02-[address] VENUS [...] encounter procedure Viola Grullon [facility] Start: 01-04-2022 End: 01-05-[address] VENUS MENDEZ . Facility: Start: 01-30-2019 End: 02-01-2019 Evaluation and management of inpatient PROVIDER UNKNOWN Facility:[facility] Start: 08-17-2018 End: 08-18-2018 Patient encounter procedure PROVIDER UNKNOWN Facility:[facility] Procedures Date Procedure Procedure Detail Performing Clinician Start: 12-01-[address] FRANKLIN MENDEZ . Comment on above: Performed By: #### P [facility] #### [facility] [address] [place] [address] Dr. Shabnam Rae Start: 01-30-2019 FUSION CERV JT W INT BD FUS DEV, ANT APPR A COL, OPEN AZEDINE MEDHK[facility] Start: 01-30-2019 REMOVAL OF INT FIX F ROM CERVCAL VERTEBRA, OPEN APPROACH AZ[facility]INE [facility] Start: 01-23-2019 Antibody screen PROVIDE R UNKNOWN Comment on above: Performed By: #### 5 7307, [address] #### [facility] [address] Start: 08-17-2018 ANESTH SPINE CORD SURGERY [...] units Performed By: #### 6 2586 #### [facility] [address] Colonoscopy Viola Grullon Hemorrhoids (disorder) Viola Grullon Hernia of abdominal cavity (disorder) Violafranko Grullon Tonsillectomy Viola Mitchel Payers Date Payer Category Payer Self-pay [id number] 2022 Medicaid [id number] 2022 Unknown 1970 Unknown [id number] 2.16.8 [id number] 1970 Unknown [id number] 2.16.8 40.1.552922.3.579.2.647 1970 Unknown [id number] 2.16.84 0.1.879377.3.579.2.593 1970 Unknown [id number] 2.16.84 0.1.440932.3.579.2.593 1970 Unknown [id number] 2.16.84 0.1.376846.3.579.2.593 1970 Unknown [id number] 2.16.84 0.1.652096.3.579.2.593 1970 Unknown [id number] 2.16.84 0.1.451385.3.579.2.593 1970 Unknown [id number] 2.16.84 0.1.819697.3.579.2.593 1970 Unknown [id number] 2.16. 840.1.766087.3.579.2.196 1970 Unknown [id number] 2.16. 840.1.241492.3.579.2.196 1970 Unknown [id number] 2.16. 840.1.798925.3.579.2.196 1970 Unknown [id number] 2.16. 840.1.867393.3.579.2.196 1970 Unknown [id number] 2.16. 840.1.016865.3.579.2.196 1970 Unknown [id number] 2.16.84 0.1.172970.3.579.2.1259 1970 Unknown [id number] 2.16.84 0.1.783491.3.579.2.1259 1970 Unknown [id number] 2.16.84 0.1.982932.3.579.2.1259 1970 Unknown [id number] 2.16.84 0.1.995857.3.579.2.1259 1959 Unknown [id number] Unknown [id number] Unknown [id number] 2.16.8 40.1.657830.3.579.2.531 Social History Date Type Detail Facility Tobacco smoking status No Smokin g Status Entered [facility] Sex Assigned At Male [facility] Start: 05-15-2018 Tobacco smoking stat NHIS Ex-smoker (finding) [facility] Start: 1970 Sex Assigned At Male F [facility] Functional Status Date Assessment Result Facility 02-25-2022 Functional Status N/A [facility] Progress note 06-09-2023 Note Date & Type Note Facility 06-09-2023 Note [facility] Continue GDMT- Diuretic therapy Monitor daily weights, I&O, fluid restriction 1.5-2L/day, renal function and electrolytes- [facility] Clinical Note 03-26-2022 Note Date & [...] by: ALVINA CAICEDO Date: 2022-03-26 10:47 [facility] Discharge instructions 02-25-2022 Note Date [...] Watch the hydrocele for any changes. Take [id number] and prescription medicines only as told by [...] 02/17/2011 Document Revised: 09/10/2018 Document Reviewed: 09/10/2018 [employer] Patient Education 2020 [employer]. Follow Up Care 01/28/2022 10:36:35 With:Mitchel DELGADO, [place] Gregorio, URO Address: When: Unknown [facility] Evaluation + Plan note Note Date & Type Note Facility Evaluation + Plan note No data available for this section [facility] Evaluation note Note Date & Type Note Facility Evaluation note No assessment information availa [facility] Work Phone: Progress note Note Date & Type Note Facility Progress note No data available for this section [facility] Summary Purpose Family History No Family History Records FoundNo Family History Records FoundNo Family History Records FoundNo Family History Records FoundNo Family History Records FoundNo Family History Records FoundNo Family History Records Found Advance Directives No Advanced Directives Records Found Advance Directive Response Recorded Date/ Time Advance Directives No May 12:42pm Hospital Course Note MR#: [id number] [facility] Pt. Name: Matty Garces Admitted: 01/30/2019 [...] and content) DATE CREATED AUTHOR 07/19/2019 [facility] DATE CREATED AUTHOR AUTHOR'S ORGANIZ ATION 02/27/2022 [facility] DATE CREATED AUTHOR AUTHOR'S ORGANIZ ATION 12/08/2022 [facility] DATE CREATED AUTHOR AUTHOR'S ORGANIZ ATION 06/17/2023 [facility] DATE CREATED AUTHOR AUTHOR'S ORGANIZ ATION 12/03/2023 [facility] DATE CREATED AUTHOR AUTHOR'S ORGANIZ ATION 01/15/2024 [facility] DATE CREATED AUTHOR AUTHOR'S ORGANIZ ATION 03/28/2024 [facility] ysician Group Care Team (unrecognized sect [...] BE BASED ON THE PRIMARY CLINICAL RECORDS. [facility] [employer] [facility]. provides no warranty or guarantee of the accuracy or completeness of information in this document.
== END 2024-05-23 11:15 | disposition home or self-care (01) ==
LOC: EC 11:14
PROVIDERS: PCP Family Medicine; Visit Provider Podiatrist Foot & Ankle Surgery
DX: M25.572 Pain in left ankle and joints of left foot (principal); S89.392D Other physeal fracture of lower end of left fibula, subsequent encounter for fracture with routine healing
CPT/HCPCS: 73610

== ENCOUNTER 2024-06-13 11:21 | Outpatient (OUT) | payer MEDICAID, SELFPAY ==
--- NOTE | 2024-06-13 | XR_ITS ---
The [address] [address] Patient Name: MATTY WADE MRN: [id number] date: 1970 Sex: M Assigned Patient Location: Current Patient Location: Accession/Order Number: [id number] Exam Date: 06/13/2024 11:21 Report Date: 06/14/2024 07:43 At the request of: CLARISA BOJORQUEZ Procedure: XR ankle LT min 3V PROCEDURE: XR ankle LT min 3V COMPARISON: 05/23/2024 HISTORY: LEFT ANKLE PAIN FINDINGS: BONES:Complex distal fibular fracture with internal fixation utilizing a plate and multiple screws 2 of which are across the syndesmosis. Interval bone formation with callus and partial bony bridging SOFT TISSUES:Moderate soft tissue swelling EFFUSION:Joint effusion OTHER: Negative. XR/XR ankle LT min 3V IMPRESSION: Stable healing distal fibular fracture with internal fixation Electronically authenticated by: ALVINA CAICEDO Date: 06/14/2024 07:43
--- OUTSIDE RECORDS SUMMARY | 2024-06-13 11:26 | XMS_ITS | CCD ---
Author Organization [facility] Care Team Providers Care Medical Transcriptionist Name Role Phone UNKNOWN, PROVIDER Admitting Unavailable [...] Surgeon Unavailable Venus Mendez Primary Care Physician [phone] DONOVAN Admitting Unavailable HOY [...] source) Aspartame Drug Allergy 08-17-20 18 [facility] (1 source) avoid; Translations: [Unknown] Propensity to adverse reactions (disorder) 08-17-20 18 [facility] (1 source) vitamin B12; Translations: [cyanocobalamin] Drug Allergy Unknown (qualifier value) [facility] (1 source) Acetaminophen / HYDROcodone Drug Allergy [facility] (1 source) Corticosteroids Drug allergy (disorder) [facility] (1 source) fentaNYL Drug Allergy [facility] (1 source) Misc-Food; Translations: [Misc-Food] Food allergy (disorder) [facility] (1 source) Corticosteroids Drug allergy (disorder) 05-14-20 18 [facility] Repository Medications Current Medications Medication Drug [...] Bedtime May 14, 2018 12:00am Vit D3-Folic Qcae-A8-Z2-B12 (1 source) Start: 05-14-2018 take 1 tablet by mouth once daily Vit D3-Folic Coil-U1-X5-B12 Active 1 TAB PO Daily May 14, [...] Onset: 3 Chronic Other aftercare (1 source) 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; 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] Onset: 3 Episodic Other aftercare (1 source) Other long term care administrator (current) drug therapy; Translations: [OTH HALF-WAY CURRENT DRUG THERAPY] Onset: 3 Episodic Other [...] Test Name Value Interpretation Reference Range Facility [facility] 01-03-2024 L Specimen: [id number] Received: 01/03/24 Status: [facility] Num: [id number] Spec Type: Surgical Subm Dr: Trey Vallejo DPM, MS Tissues: A Bone Fragments - Pathologic Fracture (PROXIMAL PHALANX RIGHT HALLU) Procedures: HE/2, Gross/Micro L5, Decalcification Age/ Patient Sex Location Account Attending Physician Matty Garces 53/M LABELL [id number] Trey Vallejo DPM, MS SPEC NUM: [id number] RECD: 01/03/24 STATUS: [facility] NUM: [id number] SOFY: 01/03/[address]: Trey Vallejo DPM, MS ENTERED: 01/03/24 [facility] DR: Ayesha Lundberg SPEC TYPE: [...] Sectioning reveals unremarkable yellow, spongy bone matrix. Upsetter sections are submitted in A1 following decal. Clinical history: Non-pressure chronic ulcer . Right hallux IPJ arthroplasty with wound debridement and graft application TW Specimen: [id number] Received: 01/03/24 Status: [facility] Num: [id number] Spec Type: Surgical Subm Dr: Trey Vallejo,DPM, MS Tissues: A Bone Fragments - Pathologic Fracture (PROXIMAL PHALANX RIGHT HALLU) Procedures: HE/2, Gross/Micro L5, Decalcification Patient: Matty Garces [id number] (Continued) Specimen: [id number] Received: 01/03/24 (Continued) Signed (signature on file) Viral Rae MD 01/06/24 1838 Specimen: [id number] Received: 01/03/24 Status: [facility] Num: [id number] Spec Type: Surgical Subm Dr: Trey Vallejo,DPM, MS Tissues: A Bone Fragments - Pathologic Fracture (PROXIMAL PHALANX RIGHT HALLU) Procedures: HE/2, Gross/Micro L5, Decalcification Patient: Matty Garces [id number] (Continued) Specimen: [id number] Received: 01/03/24 (Continued) CPT Codes 81124 Specimen: [id number] Received: 01/03/24 Status: [facility] Num: [id number] Spec Type: Surgical Subm Dr: Trey Vallejo,DPM, MS Tissues: A Bone Fragments - Pathologic Fracture (PROXIMAL PHALANX RIGHT HALLU) Procedures: HE/2, Gross/Micro L5, Decalcification Patient: MiliMatty Toni [id number] (Continued) Signed (signature on file) Viral Rae MD 01/06/24 1838 Normal [facility] CT CSPINE WO [...] ANGEL SAID Date: 2022-12-06 06:37 Normal [facility] CT FACIAL BONES WO CONon [...] ANGEL SAID Date: 2022-12-06 06:41 Normal [facility] CT HEAD WO CONon 12-06-2022 [...] ANGEL SAID Date: 2022-12-06 06:39 Normal [facility] XR ELBOW RT MIN 3 VIEWSon XR ELBOW RT MIN 3 VIEWS Exam: Radiographs: XR ELBOW RT MIN 3 VIEWS Reason for exam: Elbow pain Comparison: None IMPRESSION: Right elbow degenerative changes. Olecranon spur. Remainder of the right elbow is unremarkable. Electronically authenticated by: MICHAEL CASANOVA Date: 2022-12-06 07:22 Normal [facility] XR FOREARM RT 2Von 3 XR FOREARM RT 2V Exam: Radiographs: XR FOREARM RT 2V Reason for exam: Forearm pain Comparison: None IMPRESSION: Mild degenerative changes in the right elbow and wrist. Right forearm is otherwise unremarkable. Electronically authenticated by: MICHAEL CASANOVA Date: 2022-12-06 08:07 Normal [facility] PSA, FREE AND TOTAL RATIOon 12-03-2022 % Free PSA 9.0 % Normal [facility] Comment on above: Result [...] men. Performed By: #### P SAFREE #### [facility] [address] [address] [address] Shabnam Rae Prostate specific Ag [Mass/Vol] 5.9 ng/mL Critically high 0.0-4.0 [facility] Comment on above: Result Comment: Tanja FANGIA methodology. . According to the [employer], Serum PSA should decrease and [...] disease. Performed By: #### P SAFREE #### [facility] [address] [address] [address] Shabnam Rae PSA, Free 0.53 ng/mL Normal N/A [facility] Comment on above: Result Comment: Tanja ayala ECLOSMEL methodology. Performed By: #### P SAFREE #### [facility] [address] [address] [address] Shabnam Rae INSULINon 12-02-2022 Insulin 20.2 uIU/mL Normal 2.6-24.9 [facility] Comment on above: Performed By: #### P SASC #### [facility] [address] [address] [address] Shabnam Rae TESTOSTERONE, TOTALon 2022 Testosterone [Mass/Vol] 256 ng/dL Critically low 264-916 [facility] Comment on above: Result Comment: Adul t male reference interval is based on a population of healthy nonobese males (BMI <30) between 19 and 39 years old. adia Ch.al. JCEM 2017,102;2215-0714. PMID: [id number]. Performed By: #### P SASC #### [facility] [address] [place] [address] Dr. Shabnam Rae CBC AUTO DIFFon 12-01-2022 BASO # 0.1 103/ul Normal 0.0-0.1 [facility] Comment on above: Performed By: #### P SASC #### [facility] [address] [address] [address] Shabnam Rae Basophils/100 WBC (Bld) 1.0 % Normal 0.2-2.0 [facility] Comment on above: Performed By: #### P SASC #### [facility] [address] [address] [address] Shabnam Rae EO # 0.1 103/ul Normal 0.0-0.7 [facility] Comment on above: Performed By: #### P SASC #### [facility] [address] [address] [address] Shabnam Rae Eosinophils/100 WBC (Bld) 1.8 % Normal 0.9-7.0 [facility] Comment on above: Performed By: #### P SASC #### [facility] [address] [place] [address] Dr. Shabnam Rae Erythrocyte distribution width (RBC) [Ratio] 14.8 % Normal 11.0-15.0 [facility] Comment on above: Performed By: #### P SASC #### [facility] [address] [place] [address] Dr. Shabnam Rae Hematocrit (Bld) [Volume fraction] 49.9 % Normal 42.0-54.0 [facility] Comment on above: Performed By: #### P SASC #### [facility] [address] [address] [address] Shabnam Rae Hemoglobin (Bld) [Mass/Vol] 16.0 g/dL Normal 14.0-18.0 [facility] Comment on above: Performed By: #### P SASC #### [facility] [address] [address] [address] Shabnam Rae IG # 0.04 10e3/ul Critically high 0.00-0.03 [facility] Comment on above: Performed By: #### P SASC #### [facility] [address] [place] [address] Dr. Shabnam Rae IG % 0.6 % Critically high 0.0-0.5 [facility] Comment on above: Performed By: #### P SASC #### [facility] [address] [address] [address] Shabnam Rae LYMPH # 1.0 103/ul Critically low 1.2-3.8 [facility] Comment on above: Performed By: #### P SASC #### [facility] [address] [place] [address] Dr. Shabnam Rae Lymphocytes/100 WBC (Bld) 16.2 % Critically low 20.5-60.0 [facility] Comment on above: Performed By: #### P SASC #### [facility] [address] [address] [address] Shabnam Rae MANUAL DIFF REQ NO Normal [facility] Comment on above: Performed By: #### P SASC #### [facility] [address] [address] [address] Shabnam Rae MCH (RBC) [Entitic mass] 27.7 pg Normal 25.9-34.0 [facility] Comment on above: Performed By: #### P SASC #### [facility] [address] [address] [address] Shabnam Rae MCHC (RBC) [Mass/Vol] 32.1 g/dL Normal 29.9-35.2 [facility] Comment on above: Performed By: #### P SASC #### [facility] [address] [address] [address] Shabnam Rae MCV (RBC) [Entitic vol] 86.3 fL Normal 80.0-94.0 [facility] Comment on above: Performed By: #### P SASC #### [facility] [address] [place] [address] Dr. Shabnam Rae MONO # 0.5 103/ul Normal 0.3-0.8 [facility] Comment on above: Performed By: #### P SASC #### [facility] [address] [place] [address] Dr. Shabnam Rae Monocytes/100 WBC (Bld) 7.6 % Normal 1.7-12.0 [facility] Comment on above: Performed By: #### P SASC #### [facility] [address] [place] [address] Dr. Shabnam Rae NEUT # 4.6 103/ul Normal 1.4-6.5 [facility] Comment on above: Performed By: #### P SASC #### [facility] [address] [place] [address] Dr. Shabnam Rae Neutrophils/100 WBC (Bld) 72.8 % Normal 43.0-75.0 [facility] Comment on above: Performed By: #### P SASC #### [facility] [address] [place] [address] Dr. Shabnam Rae Platelet mean volume (Bld) [Entitic vol] 9.8 fL Normal 9.5-13.5 [facility] Comment on above: Performed By: #### P SASC #### [facility] [address] [place] [address] Dr. Shabnam Rae PLT 203 103/ul Normal 150-450 [facility] Comment on above: Performed By: #### P SASC #### [facility] [address] [place] [address] Dr. Shabnam Rae RBC 5.78 106/ul Normal 4.70-6.10 [facility] Comment on above: Performed By: #### P SASC #### [facility] [address] [place] [address] Dr. Shabnam Rae WBC 6.3 103/ul Normal 4.0-11.0 [facility] Comment on above: Performed By: #### P SASC #### [facility] [address] [place] [address] Dr. Shabnam Rae FREE THYROXINE INDEX T7on FTI 2.05 Normal 1.30-4.50 [facility] Comment on above: Performed By: #### T SH, CMP, LIPID, T7, URIC #### [facility] [address] [place] [address] Dr. Shabnam Rae T3U 33.0 % Normal 33.0-40.0 [facility] Comment on above: Performed By: #### T SH, CMP, LIPID, T7, URIC #### [facility] [address] [place] [address] Dr. Shabnam Rae T4 [Mass/Vol] 6.20 ug/dL Normal 4.50-12.10 [facility] Comment on above: Performed By: #### T SH, CMP, LIPID, T7, URIC #### [facility] [address] [place] [address] Dr. Shabnam Rae GLYCOHEMOGLOBIN A1Con 2022 ADA RECOMMENDATION SEE BELOW Normal [facility] Comment on above: Result Comment: ADA RECOMMENDED LIMIT 4.0 - 6.0 ADA THERAPEUTIC TARGET < 7.0 ACTION SUGGESTED > 7.0 Performed By: #### P SASC #### [facility] [address] [place] [address] Dr. Shabnam Rae Glucose [Mass/Vol] 114 mg/dL Normal [facility] Comment on above: Performed By: #### P SASC #### [facility] [address] [place] [address] Dr. Shabnam Rae HbA1c (Bld) [Mass fraction] 5.6 % Normal 4.5-6.2 [facility] Comment on above: Performed By: #### P SASC #### [facility] [address] [address] [address] Shabnam Rae LIPID PROFILEon 12-01-2022 CHOL-HDL RATIO NORM SEE BELOW Normal [facility] Comment on above: Result Comment: 3.3 - 4.4 LOW RISK 4.4 - 7.1 AVERAGE RISK 7.1 - 11.0 MODERATE RISK >11.0 HIGH RISK Performed By: #### T SH, CMP, LIPID, T7, URIC #### [facility] [address] [address] [address] Shabnam Rae Cholesterol [Mass/Vol] 176 mg/dL Normal <=200 [facility] Comment on above: Performed By: #### T SH, CMP, LIPID, T7, URIC #### [facility] [address] [address] [address] Shabnam Rae Cholesterol in HDL [Mass/Vol] 48 mg/dL Normal 40-60 [facility] Comment on above: Performed By: #### T SH, CMP, LIPID, T7, URIC #### [facility] [address] [address] [address] Shabnam Rae Cholesterol in LDL [Mass/Vol] 108.2 mg/dL Normal [facility] Comment on above: Performed By: #### T SH, CMP, LIPID, T7, URIC #### [facility] [address] [address] [address] Shabnam Rae Cholesterol.total/Ch olesterol in HDL [Mass ratio] 3.7 {ratio} Normal [facility] Comment on above: Performed By: #### T SH, CMP, LIPID, T7, URIC #### [facility] [address] [address] [address] Shabnam Rae HDL NORMAL > or = 60 mg/dl - LOW CARDIOVASCULAR RISK <40 mg/dl - HIGH CARDIOVASCULAR RISK Normal [facility] Comment on above: Performed By: #### T SH, CMP, LIPID, T7, URIC #### [facility] [address] [address] [address] Shabnam Rae LDL CALC NORMAL SEE BELOW Normal [facility] Comment on above: Result Comment: <100 mg/dl OPTIMAL 100 - 129 mg/dl NEAR OR ABOVE OPTIMAL 130 - 159 mg/dl BORDERLINE HIGH 160 - 189 mg/dl HIGH >190 mg/dl VERY HIGH Performed By: #### T SH, CMP, LIPID, T7, URIC #### [facility] [address] [address] [address] Shabnam Rae Triglyceride [Mass/Vol] 99 mg/dL Normal <=150 [facility] Comment on above: Performed By: #### T SH, CMP, LIPID, T7, URIC #### [facility] [address] [address] [address] Shabnam Rae VLDL CALC 19.8 mg/dL Normal [facility] Comment on above: Performed By: #### T SH, CMP, LIPID, T7, URIC #### [facility] [address] [address] [address] Shabnam Rae PROF 14(COMP METB)on 023 Albumin [Mass/Vol] 4.1 g/dL Normal 3.4-5.0 [facility] Comment on above: Performed By: #### T SH, CMP, LIPID, T7, URIC #### [facility] [address] [address] [address] Shabnam Rae Albumin/Globulin [Mass ratio] 1.1 {ratio} Normal [facility] Comment on above: Performed By: #### T SH, CMP, LIPID, T7, URIC #### [facility] [address] [address] [address] Shabnam Rae ALP [Catalytic activity/Vol] 101 U/L Normal 46-116 [facility] Comment on above: Performed By: #### T SH, CMP, LIPID, T7, URIC #### [facility] [address] [address] [address] Shabnam Rae ALT [Catalytic activity/Vol] 26 U/L Normal 16-63 [facility] Comment on above: Performed By: #### T SH, CMP, LIPID, T7, URIC #### [facility] [address] [address] [address] Shabnam Rae Anion gap [Moles/Vol] 10.1 mmol/L Normal [facility] Comment on above: Performed By: #### T SH, CMP, LIPID, T7, URIC #### [facility] [address] [place] [address] Dr. Shabnam Rae AST [Catalytic activity/Vol] 19 U/L Normal 15-37 [facility] Comment on above: Performed By: #### T SH, CMP, LIPID, T7, URIC #### [facility] [address] [place] [address] Dr. Shabnam Rae Bilirubin [Mass/Vol] 0.8 mg/dL Normal 0.2-1.0 [facility] Comment on above: Performed By: #### T SH, CMP, LIPID, T7, URIC #### [facility] [address] [place] [address] Dr. Shabnam Rae Calcium [Mass/Vol] 9.5 mg/dL Normal 8.5-10.1 [facility] Comment on above: Performed By: #### T SH, CMP, LIPID, T7, URIC #### [facility] [address] [place] [address] Dr. Shabnam Rae Chloride [Moles/Vol] 102 mmol/L Normal 98-107 [facility] Comment on above: Performed By: #### T SH, CMP, LIPID, T7, URIC #### [facility] [address] [place] [address] Dr. Shabnam Rae CO2 [Moles/Vol] 32.4 mmol/L Critically high 21.0-32.0 [facility] Comment on above: Performed By: #### T SH, CMP, LIPID, T7, URIC #### [facility] [address] [place] [address] Dr. Shabnam Rae Creatinine [Mass/Vol] 1.00 mg/dL Normal 0.70-1.30 [facility] Comment on above: Performed By: #### T SH, CMP, LIPID, T7, URIC #### [facility] [address] [place] [address] Dr. Shabnam Rae EGFR-AF MEXICAN >60 Normal >=60 [facility] Comment on above: Performed By: #### T SH, CMP, LIPID, T7, URIC #### [facility] [address] [address] [address] Shabnam Rae EGFR-NON AF MEXICAN >60 Normal >=60 [facility] Comment on above: Performed By: #### T SH, CMP, LIPID, T7, URIC #### [facility] [address] [place] [address] Dr. Shabnam Rae Globulin (S) [Mass/Vol] 3.8 g/dL Normal [facility] Comment on above: Performed By: #### T SH, CMP, LIPID, T7, URIC #### [facility] [address] [place] [address] Dr. Shabnam Rae Glucose [Mass/Vol] 94 mg/dL Normal 74-106 [facility] Comment on above: Performed By: #### T SH, CMP, LIPID, T7, URIC #### [facility] [address] [place] [address] Dr. Shabnam Rae Potassium [Moles/Vol] 3.5 mmol/L Normal 3.5-5.1 [facility] Comment on above: Performed By: #### T SH, CMP, LIPID, T7, URIC #### [facility] [address] [place] [address] Dr. Shabnam Rae Protein [Mass/Vol] 7.9 g/dL Normal 6.4-8.2 [facility] Comment on above: Performed By: #### T SH, CMP, LIPID, T7, URIC #### [facility] [address] [address] [address] Shabnam Rae Sodium [Moles/Vol] 141 mmol/L Normal 136-145 [facility] Comment on above: Performed By: #### T SH, CMP, LIPID, T7, URIC #### [facility] [address] [place] [address] Dr. Shabnam Rae Urea nitrogen [Mass/Vol] 15.0 mg/dL Normal 7.0-18.0 [facility] Comment on above: Performed By: #### T SH, CMP, LIPID, T7, URIC #### [facility] [address] [place] [address] Dr. Shabnam Rae Urea nitrogen/Creatinine [Mass ratio] 15.0 mg/mg Normal [facility] Comment on above: Performed By: #### T SH, CMP, LIPID, T7, URIC #### [facility] [address] [place] [address] Dr. Shabnam Rae TSHon 12-01-2022 TSH 1.504 uIU/mL Normal 0.358-3.740 [facility] Comment on above: Performed By: #### T SH, CMP, LIPID, T7, URIC #### [facility] [address] [place] [address] Dr. Shabnam Rae URIC ACID SERUMon 12-01-2022 Urate [Mass/Vol] 6.9 mg/dL Normal 3.5-7.2 [facility] Comment on above: Performed By: #### T SH, CMP, LIPID, T7, URIC #### [facility] [address] [place] [address] Dr. Shabnam Rae TESTOSTERONE, TOTALon 2021 Testosterone [Mass/Vol] 244 ng/dL Critically low 264-916 [facility] Comment on above: Result Comment: Adul t male reference interval is based on a population of healthy nonobese males (BMI <30) between 19 and 39 years old. Dima et.al. JCEM 2017,102;3034-2258. PMID: [id number]. Performed By: #### P SAFREE #### [facility] [address] [place] [address] Dr. Shabnam Rae TESTOSTERONE, FREE,DIRECT, T OTALon 03-16-2022 Free Testosterone(Direct) 2.1 pg/mL Critically low 7.2-24.0 [facility] Comment on above: Result Comment: Perf ormed at: BN Performed By: #### C VDTBH #### [facility] [address] [place] [address] Dr. Shabnam Rae Testosterone [Mass/Vol] 252 ng/dL Critically low 264-916 [facility] Comment on above: Result Comment: Adul t male reference interval is based on a population of healthy nonobese males (BMI <30) between 19 and 39 years old. adia Ch.al. JCEM 2017,102;4117-9142. PMID: [id number]. Performed at: Performed By: #### C [facility] #### [facility] [address] [address] [address] Shabnam Rae Formson 02-26-2022 Forms [id number] 7#1.00CD:127 Normal [facility] Screenson 02-26-2022 Screens [id number] 7#1.00CD:127 Normal [facility] Screens [id number] #1.00CD:127 Normal [facility] Urology Office/Clinic Noteon 02-26-2022 Urology Office/Clinic [...] qualifying data (more content not included)... Normal [facility] Comment on above: Result Comment: Elec tronically Signed By: Viola Grullon MD\.br\Date and Time Signed: 02/26/22 00:20 EDT\.br\Electronically Co-Signed By: Helen Leung\.br\Date and Time Co-Signed: 02/25/22 11:16 EDT Ambulatory Visit Summaryon 0 02-25-2022 Ambulatory Visit Summary MATTY GARCES :1970 Visit Date:02/25/2022 Ambulatory Visit Instructions Your Diagnosis Hydrocele Varicocele BPH without urinary obstruction Tests Performed Urnls Dip Stick Auto w/o Microscopy POC 80011 Your Care Team Attending Physician - Viola [...] Urnls Dip Stick Auto w/o Microscopy POC 09583 (02/25/2022) Bilirubin Urine Dipstick - Negative Blood Urine Dipstick - Negative Glucose Urine Dipstick - Negative Ketones Urine Dipstick - Negative Leukocytes Urine Dipstick - Negative Nitrite Urine Dipstick - Negative Protein Urine Dipstick - Negative Specific [place] Urine Dipstick - >=1.030 Urine Appearance Urine [...] the hydrocele for any changes. ? Take ltba-ejj-nbchqgi and prescription medicines only as told by [...] t (more content not included)... Normal [facility] Patient Educationon 02-26-20 Patient Education [...] the hydrocele for any changes. ? Take wafx-jdl-pyxnkfr and prescription medicines only as told by [...] Reviewed: 09/10/2018 Elsevier Patient Education ? 2019 [employer] [facility] ED Note-Physicianon 02-04-20 ED Note-Physician [id number] 62#1.00CD:127 [facility] RAD - Ultrasound Reporton RAD - Ultrasound Report [id number] #1.00CD:127 Normal [facility] RAD - CT Reporton 02-02-2022 RAD - CT Report [id number]#1.00CD:127 Normal [facility] RAD - CT Report [id number]#1.00CD:127 Normal [facility] CBC AUTO DIFFon 01-05-2022 BASO # 0.0 103/ul Normal 0.0-0.1 [facility] Comment on above: Performed By: #### P SAFREE #### [facility] [address] [place] [address] Dr. Shabnam Rae Basophils/100 WBC (Bld) 0.6 % Normal 0.2-2.0 [facility] Comment on above: Performed By: #### P SAFREE #### [facility] [address] [place] [address] Dr. Shabnam Rae EO # 0.1 103/ul Normal 0.0-0.7 [facility] Comment on above: Performed By: #### P SAFREE #### [facility] [address] [place] [address] Dr. Sahbnam Rae Eosinophils/100 WBC (Bld) 2.1 % Normal 0.9-7.0 [facility] Comment on above: Performed By: #### P SAFREE #### [facility] [address] [place] [address] Dr. Shabnam Rae Erythrocyte distribution width (RBC) [Ratio] 13.1 % Normal 11.0-15.0 [facility] Comment on above: Performed By: #### P SAFREE #### [facility] [address] [place] [address] Dr. Shabnam Rae Hematocrit (Bld) [Volume fraction] 43.1 % Normal 42.0-54.0 [facility] Comment on above: Performed By: #### P SAFREE #### [facility] [address] [place] [address] Dr. Shabnam Rae Hemoglobin (Bld) [Mass/Vol] 13.7 g/dL Critically low 14.0-18.0 [facility] Comment on above: Performed By: #### P SAFREE #### [facility] [address] [address] [address] Shabnam Rae IG # 0.04 10e3/ul Critically high 0.00-0.03 [facility] Comment on above: Performed By: #### P SAFREE #### [facility] [address] [address] [address] Shabnam Rae IG % 0.6 % Critically high 0.0-0.5 [facility] Comment on above: Performed By: #### P SAFREE #### [facility] [address] [address] [address] Shabnam Rae LYMPH # 0.9 103/ul Critically low 1.2-3.8 [facility] Comment on above: Performed By: #### P SAFREE #### [facility] [address] [address] [address] Shabnam Rae Lymphocytes/100 WBC (Bld) 13.1 % Critically low 20.5-60.0 [facility] Comment on above: Performed By: #### P SAFREE #### [facility] [address] [place] [address] Dr. Shabnam Rae MANUAL DIFF REQ NO Normal [facility] Comment on above: Performed By: #### P SAFREE #### [facility] [address] [address] [address] Shabnam Rae MCH (RBC) [Entitic mass] 29.5 pg Normal 25.9-34.0 [facility] Comment on above: Performed By: #### P SAFREE #### [facility] [address] [address] [address] Shabnam Rae MCHC (RBC) [Mass/Vol] 31.8 g/dL Normal 29.9-35.2 [facility] Comment on above: Performed By: #### P SAFREE #### [facility] [address] [address] [address] Shabnam Rae MCV (RBC) [Entitic vol] 92.9 fL Normal 80.0-94.0 [facility] Comment on above: Performed By: #### P SAFREE #### [facility] [address] [place] [address] Dr. Shabnam Rae MONO # 0.4 103/ul Normal 0.3-0.8 [facility] Comment on above: Performed By: #### P SAFREE #### [facility] [address] [place] [address] Dr. Shabnam Rae Monocytes/100 WBC (Bld) 5.4 % Normal 1.7-12.0 [facility] Comment on above: Performed By: #### P SAFREE #### [facility] [address] [place] [address] Dr. Shabnam Rae NEUT # 5.2 103/ul Normal 1.4-6.5 [facility] Comment on above: Performed By: #### P SAFREE #### [facility] [address] [place] [address] Dr. Shabnam Rae Neutrophils/100 WBC (Bld) 78.2 % Critically high 43.0-75.0 [facility] Comment on above: Performed By: #### P SAFREE #### [facility] [address] [place] [address] Dr. Shabnam Rae Platelet mean volume (Bld) [Entitic vol] 10.9 fL Normal 9.5-13.5 [facility] Comment on above: Performed By: #### P SAFREE #### [facility] [address] [place] [address] Dr. Shabnam Rae PLT 153 103/ul Normal 150-450 [facility] Comment on above: Performed By: #### P SAFREE #### [facility] [address] [place] [address] Dr. Shabnam Rae RBC 4.64 106/ul Critically low 4.70-6.10 [facility] Comment on above: Performed By: #### P SAFREE #### [facility] [address] [place] [address] Dr. Shabnam Rae WBC 6.6 103/ul Normal 4.0-11.0 [facility] Comment on above: Performed By: #### P SAFREE #### [facility] [address] [place] [address] Dr. Shabnam Rae CRPon 01-05-2022 CRP 0.9 mg/dL Normal <=1.0 [facility] Comment on above: Performed By: #### P SAFREE #### [facility] [address] [place] [address] Dr. Shabnam Rae PROF 14(COMP METB)on 022 Albumin [Mass/Vol] 3.6 g/dL Normal 3.4-5.0 [facility] Comment on above: Performed By: #### P SAFREE #### [facility] [address] [place] [address] Dr. Shabnam Rae Albumin/Globulin [Mass ratio] 1.0 {ratio} Normal [facility] Comment on above: Performed By: #### P SAFREE #### [facility] [address] [place] [address] Dr. Shabnam Rae ALP [Catalytic activity/Vol] 114 U/L Normal 46-116 [facility] Comment on above: Performed By: #### P SAFREE #### [facility] [address] [place] [address] Dr. Shabnam Rae ALT [Catalytic activity/Vol] 26 U/L Normal 16-63 [facility] Comment on above: Performed By: #### P SAFREE #### [facility] [address] [place] [address] Dr. Shabnam Rae Anion gap [Moles/Vol] 9.3 mmol/L Normal [facility] Comment on above: Performed By: #### P SAFREE #### [facility] [address] [place] [address] Dr. Shabnam Rae AST [Catalytic activity/Vol] 19 U/L Normal 15-37 [facility] Comment on above: Performed By: #### P SAFREE #### [facility] [address] [place] [address] Dr. Shabnam Rae Bilirubin [Mass/Vol] 0.5 mg/dL Normal 0.2-1.0 [facility] Comment on above: Performed By: #### P SAFREE #### [facility] [address] [place] [address] Dr. Shabnam Rae Calcium [Mass/Vol] 8.9 mg/dL Normal 8.5-10.1 [facility] Comment on above: Performed By: #### P SAFREE #### [facility] [address] [address] [address] Shabnam Rae Chloride [Moles/Vol] 106 mmol/L Normal 98-107 [facility] Comment on above: Performed By: #### P SAFREE #### [facility] [address] [place] [address] Dr. Shabnam Rae CO2 [Moles/Vol] 30.7 mmol/L Normal 21.0-32.0 [facility] Comment on above: Performed By: #### P SAFREE #### [facility] [address] [place] [address] Dr. Shabnam Rae Creatinine [Mass/Vol] 1.15 mg/dL Normal 0.70-1.30 [facility] Comment on above: Performed By: #### P SAFREE #### [facility] [address] [place] [address] Dr. Shabnam Rae EGFR-AF MEXICAN >60 Normal >=60 [facility] Comment on above: Performed By: #### P SAFREE #### [facility] [address] [place] [address] Dr. Shabnam Rae EGFR-NON AF MEXICAN >60 Normal >=60 [facility] Comment on above: Performed By: #### P SAFREE #### [facility] [address] [place] [address] Dr. Shabnam Rae Globulin (S) [Mass/Vol] 3.6 g/dL Normal [facility] Comment on above: Performed By: #### P SAFREE #### [facility] [address] [place] [address] Dr. Shabnam Rae Glucose [Mass/Vol] 117 mg/dL Critically high 74-106 T [facility] Comment on above: Performed By: #### P SAFREE #### [facility] [address] [place] [address] Dr. Shabnam Rae Potassium [Moles/Vol] 4.0 mmol/L Normal 3.5-5.1 [facility] Comment on above: Performed By: #### P SAFREE #### [facility] [address] [place] [address] Dr. Shabnam Rae Protein [Mass/Vol] 7.2 g/dL Normal 6.1-8.2 [facility] Comment on above: Performed By: #### P SAFREE #### [facility] [address] [place] [address] Dr. Shabnam Rae Sodium [Moles/Vol] 142 mmol/L Normal 136-145 [facility] Comment on above: Performed By: #### P SAFREE #### [facility] [address] [place] [address] Dr. Shabnam Rae Urea nitrogen [Mass/Vol] 15.0 mg/dL Normal 7.0-18.0 [facility] Comment on above: Performed By: #### P SAFREE #### [facility] [address] [place] [address] Dr. Shabnam Rae Urea nitrogen/Creatinine [Mass ratio] 13.0 mg/mg Normal [facility] Comment on above: Performed By: #### P SAFREE #### [facility] [address] [place] [address] Dr. Shabnam Rae US SCROTUMon 01-05-2022 US [...] ALVINA CAICEDO Date: 2022-01-05 08:48 Normal [facility] CBC AUTO DIFFon 01-04-2022 BASO # 0.1 103/ul Normal 0.0-0.1 [facility] Comment on above: Performed By: #### C BC #### [facility] [address] [place] [address] Dr. Shabnam Rae Basophils/100 WBC (Bld) 0.8 % Normal 0.2-2.0 [facility] Comment on above: Performed By: #### C BC #### [facility] [address] [place] [address] Dr. Shabnam Rae EO # 0.1 103/ul Normal 0.0-0.7 [facility] Comment on above: Performed By: #### C BC #### [facility] [address] [place] [address] Dr. Shabnam Rae Eosinophils/100 WBC (Bld) 1.5 % Normal 0.9-7.0 [facility] Comment on above: Performed By: #### C BC #### [facility] [address] [place] [address] Dr. Shabnam Rae Erythrocyte distribution width (RBC) [Ratio] 12.8 % Normal 11.0-15.0 [facility] Comment on above: Performed By: #### C BC #### [facility] [address] [place] [address] Dr. Shabnam Rae Hematocrit (Bld) [Volume fraction] 40.3 % Critically low 42.0-54.0 [facility] Comment on above: Performed By: #### C BC #### [facility] [address] [place] [address] Dr. Shabnam Rae Hemoglobin (Bld) [Mass/Vol] 13.4 g/dL Critically low 14.0-18.0 [facility] Comment on above: Performed By: #### C BC #### [facility] [address] [address] [address] Shabnam Rae IG # 0.03 10e3/ul Normal 0.00-0.03 [facility] Comment on above: Performed By: #### C BC #### [facility] [address] [place] [address] Dr. Shabnam Rae IG % 0.5 % Normal 0.0-0.5 [facility] Comment on above: Performed By: #### C BC #### [facility] [address] [place] [address] Dr. Shabnam Rae LYMPH # 1.0 103/ul Critically low 1.2-3.8 [facility] Comment on above: Performed By: #### C BC #### [facility] [address] [place] [address] Dr. Shabnam Rae Lymphocytes/100 WBC (Bld) 16.4 % Critically low 20.5-60.0 [facility] Comment on above: Performed By: #### C BC #### [facility] [address] [place] [address] Dr. Shabnam Rae MANUAL DIFF REQ NO Normal [facility] Comment on above: Performed By: #### C BC #### [facility] [address] [place] [address] Dr. Shabnam Rae MCH (RBC) [Entitic mass] 29.5 pg Normal 25.9-34.0 [facility] Comment on above: Performed By: #### C BC #### [facility] [address] [place] [address] Dr. Shabnam Rae MCHC (RBC) [Mass/Vol] 33.3 g/dL Normal 29.9-35.2 [facility] Comment on above: Performed By: #### C BC #### [facility] [address] [place] [address] Dr. Shabnam Rae MCV (RBC) [Entitic vol] 88.8 fL Normal 80.0-94.0 [facility] Comment on above: Performed By: #### C BC #### [facility] [address] [place] [address] Dr. Shabnam Rae MONO # 0.6 103/ul Normal 0.3-0.8 [facility] Comment on above: Performed By: #### C BC #### [facility] [address] [place] [address] Dr. Shabnam Rae Monocytes/100 WBC (Bld) 9.6 % Normal 1.7-12.0 [facility] Comment on above: Performed By: #### C BC #### [facility] [address] [place] [address] Dr. Shabnam Rae NEUT # 4.4 103/ul Normal 1.4-6.5 [facility] Comment on above: Performed By: #### C BC #### [facility] [address] [place] [address] Dr. Shabnam Rae Neutrophils/100 WBC (Bld) 71.2 % Normal 43.0-75.0 [facility] Comment on above: Performed By: #### C BC #### [facility] [address] [place] [address] Dr. Shabnam Rae Platelet mean volume (Bld) [Entitic vol] 10.8 fL Normal 9.5-13.5 [facility] Comment on above: Performed By: #### C BC #### [facility] [address] [place] [address] Dr. Shabnam Rae PLT 158 103/ul Normal 150-450 [facility] Comment on above: Performed By: #### C BC #### [facility] [address] [place] [address] Dr. Shabnam Rae RBC 4.54 106/ul Critically low 4.70-6.10 [facility] Comment on above: Performed By: #### C BC #### [facility] [address] [place], [place] [address] Dr. Shabnam Rae WBC 6.2 103/ul Normal 4.0-11.0 [facility] Comment on above: Performed By: #### C BC #### [facility] [address] [place], [place] [address] ABD/PELV W CONon [...] MAYRA BERNAL Date: 2022-01-04 05:19 Normal [facility] CT PELVIS WO CONon 2 CT [...] MANUEL FRANCE Date: 2022-01-04 08:54 Normal [facility] CULTURE URINEon 01-04-2022 CULTURE URINE Culture Observations: No growth Normal [facility] Comment on above: Performed By: #### P [facility] #### [facility] [address] [place] [address] Dr. Shabnam Rae Covid-19 PCR ([facility])on 12-13 SARS-CoV-2 (COVID-19) RNA ELIJAH+probe Ql (Unsp spec) Not detected Normal NOT DETECTED [facility] Comment on above: Result Comment: When diagnostic testing is negative, the possibility of a false negative should be considered in the context of a patient's recent exposures and the presence of clinical signs and symptoms consistent with SARS-CoV-2. This test is not yet approved or cleared by the [place] Food and Drug Administration (FDA). This test was developed by [employer], [place], [place]. The performance characteristics of this test were validated by [facility]. The results are not intended to be used as the sole means for clinical diagnosis or patient management decisions. [facility] is authorized under Clinical Laboratory [...] for this test is supported by the [place] of Health and Human Service's declaration that [...] used). Performed By: #### C VDTB #### [facility] [address] [place] [address] Dr. Shabnam Rae ER URINE PROFILEon 2 Bilirubin Ql (U) Negative Normal NEGATIVE [facility] Comment on above: Performed By: #### P SASC #### [facility] [address] [place] [address] Dr. Shabanm Rae Clarity (U) CLEAR Normal CLEAR [facility] Comment on above: Performed By: #### P SASC #### [facility] [address] [place] [address] Dr. Shabnam Rae Color (U) YELLOW Normal YELLOW [facility] Comment on above: Performed By: #### P SASC #### [facility] [address] [address] [address] Shabnam HERNANDEZ A micrscopic examination will be performed if indicated. Normal [facility] Comment on above: Performed By: #### P SASC #### [facility] [address] [address] [address] Shabnam Rae Glucose Ql (U) Negative Normal NEGATIVE [facility] Comment on above: Performed By: #### P SASC #### [facility] [address] [address] [address] Shabnam Rae Hemoglobin Ql (U) Negative Normal NEGATIVE [facility] Comment on above: Performed By: #### P SASC #### [facility] [address] [address] [address] Shabnam Rae Ketones Ql (U) Negative Normal NEGATIVE [facility] Comment on above: Performed By: #### P SASC #### [facility] [address] [address] [address] Shabnam Rae LEUKOCYTES Negative Normal NEGATIVE [facility] Comment on above: Performed By: #### P SASC #### [facility] [address] [address] [address] Shabnam Rae Nitrite Ql (U) Negative Normal NEGATIVE [facility] Comment on above: Performed By: #### P SASC #### [facility] [address] [place] [address] Dr. Shabnam Rae pH (U) 6.5 [pH] Normal 5-9 [facility] Comment on above: Performed By: #### P SASC #### [facility] [address] [address] [address] Shabnam Rae SPEC GRAVITY 1.010 Normal 1.005-<=1.025 [facility] Comment on above: Performed By: #### P SASC #### [facility] [address] [place] [address] Dr. Shabnam Rae UA PROTEIN Negative Normal NEGATIVE/ TRACE [facility] Comment on above: Performed By: #### P SASC #### [facility] [address] [address] [address] Shabnam Rae UR MICRO IND NOT INDICATED Normal [facility] Comment on above: Performed By: #### P SASC #### [facility] [address] [place] [address] Dr. Shabnam Rae Urobilinogen Qn (U) 0.2 {Sarai'U}/dL Normal 0.2 - 1. 0 [facility] Comment on above: Performed By: #### P SASC #### [facility] [address] [place] [address] Dr. Shabnam Rae LACTATE/LACTIC ACIDon 2021 Lactate [Moles/Vol] 1.0 mmol/L Normal 0.4-2.0 [facility] Comment on above: Performed By: #### P SASC #### [facility] [address] [place] [address] Dr. Shabnam Rae PROF CHEM 8 (BAS METB)on Anion gap [Moles/Vol] 10.0 mmol/L Normal [facility] Comment on above: Performed By: #### B MP #### [facility] [address] [place] [address] Dr. Shabnam Rae Calcium [Mass/Vol] 8.5 mg/dL Normal 8.5-10.1 [facility] Comment on above: Performed By: #### B MP #### [facility] [address] [place] [address] Dr. Shabnam Rae Chloride [Moles/Vol] 103 mmol/L Normal 98-107 [facility] Comment on above: Performed By: #### B MP #### [facility] [address] [place] [address] Dr. Shabnam Rae CO2 [Moles/Vol] 29.2 mmol/L Normal 21.0-32.0 [facility] Comment on above: Performed By: #### B MP #### [facility] [address] [place] [address] Dr. Shabnam Rae Creatinine [Mass/Vol] 1.25 mg/dL Normal 0.70-1.30 [facility] Comment on above: Performed By: #### B MP #### [facility] [address] [address] [address] Shabnam Rae EGFR-AF MEXICAN >60 Normal >=60 [facility] Comment on above: Performed By: #### B MP #### [facility] [address] [id number] Shabnam Rae EGFR-NON AF MEXICAN >60 Normal >=60 [facility] Comment on above: Performed By: #### B MP #### [facility] [address] [address] [address] Shabnam Rae Glucose [Mass/Vol] 132 mg/dL Critically high 74-106 [facility] Comment on above: Performed By: #### B MP #### [facility] [address] [address] [address] Shabnam Rae Potassium [Moles/Vol] 3.2 mmol/L Critically low 3.5-5.1 [facility] Comment on above: Performed By: #### B MP #### [facility] [address] [address] [address] Shabnam Rae Sodium [Moles/Vol] 139 mmol/L Normal 136-145 [facility] Comment on above: Performed By: #### B MP #### [facility] [address] [address] [address] Shabnam Rae Urea nitrogen [Mass/Vol] 19.0 mg/dL Critically high 7.0-18.0 [facility] Comment on above: Performed By: #### B MP #### [facility] [address] [address] [address] Shabnam Rae Urea nitrogen/Creatinine [Mass ratio] 15.2 mg/mg Normal [facility] Comment on above: Performed By: #### B MP #### [facility] [address] [place], [place] [id number] Dr. Shabnam Rae CERVICAL SPINE 2 OR 3 [facility] 07-06-2019 CERVICAL SPINE 2 OR 3 [facility] [place] [facility] Department of Radiology [address] [place] [id number] Patient Name: MATTY GARCES : 1970 Sex: M Age: Race: White Pt. Location: 85 Patient Status: O Ordered Date: 07/06/2019 9:10:00 AM Completed Date: 07/06/2019 09:21 AM Requesting Provider: LUCIANO VIEIRA Attending Provider: LUCIANO VIEIRA Report Copy To: VENUS MENDEZ Signs & Symptoms: M48.02 Spinal stenosis, cervical region I10 History: [place] Comments: , STAT READ , STAT READ [...] findings. Electronically signed by:Bernice Hoyt. Transcribed by: [email or web address], User Resident: RADHA CHIN Electronically Signed by: BERNICE HOYT @ 07/06/2019 08:52 PM I personally read this/these film(s) with this resident Normal [facility] Comment on above: Order Comment: , STA T READ , STAT READ , , , Ordering Provider - LUCIANO VIEIRA MD , CERVICAL SPINE 2 OR 3 [facility] 04-06-2019 CERVICAL SPINE 2 OR 3 [facility] Department of Radiology [address] [place] [phone] Patient Name: MATTY GARCES : 1970 [...] FALLS Exam: CERVICAL SPINE 2 OR 3 [facility] CERVICAL SPINE 2 OR 3 [...] study. Electronically signed by:Bernice Hoyt. Transcribed by: [email or web address], User Resident: Electronically Signed by: BERNICE HOYT @ 04/06/2019 04:40 PM Normal [facility] Comment on above: Order Comment: AP/LA T, ODONTOID PLEASE DO SWIMMER'S VIEW FOLLOW UP HARDWARE AND ALIGNMENT, S/P ACDF, RECENT FALLS CERVICAL SPINE 2 OR 3 [facility] 02-17-2019 CERVICAL SPINE 2 OR 3 [facility] Department of Radiology [address] [place] [phone] Patient Name: MATTY GARCES : 1970 [...] findings. Electronically signed by:Bella King. Transcribed by: [email or web address], User Resident: EMILE TINAJERO Electronically Signed by: BELLA KING @ 02/20/2019 11:53 AM I personally read this/these film(s) with this resident Normal [facility] Comment on above: Order Comment: C-SPI NE 2 OR 3 VIEW POSTOP, EVALUATION HARDWARE AN ALIGNMENT BASIC METABOLIC PANELon 05-2 Calcium [Mass/Vol] 9.2 mg/dL Normal 8.6-10.3 [facility] Comment on above: Order Comment: No: D o not add to previous draw Performed By: #### 5 0103 #### [facility] [address] [place] [address], [place] Chloride [Moles/Vol] 101 mmol/L Normal 98-107 [facility] Comment on above: Order Comment: No: D o not add to previous draw Performed By: #### 5 0103 #### [facility] [address] [place] [address], [place] CO2 [Moles/Vol] 26 mmol/L Normal 21-31 [facility] Comment on above: Order Comment: No: D o not add to previous draw Performed By: #### 5 0103 #### [facility] [address] [place] [address], [place] Creatinine [Mass/Vol] 1.02 mg/dL Normal 0.70-1.30 [facility] Comment on above: Order Comment: No: D o not add to previous draw Performed By: #### 5 0103 #### [facility] [address] [place] [address], [place] GFR/1.73 sq M predicted among blacks MDRD (S/P/Bld) [Vol rate/Area] mL/min/{1.73_m2} Normal >60 [facility] Comment on above: Order Comment: No: D o not add to previous draw Performed By: #### 5 0103 #### [facility] [address] [place] [address], [place] GFR/1.73 sq M predicted among non-blacks MDRD (S/P/Bld) [Vol rate/Area] mL/min/{1.73_m2} Normal >60 [facility] Comment on above: Order Comment: No: D o not add to previous draw Performed By: #### 5 0103 #### [facility] [address] [place] [address], [place] Glucose [Mass/Vol] 124 mg/dL High 70-100 The [facility] Comment on above: Order Comment: No: D o not add to previous draw Performed By: #### 5 0103 #### [facility] [address] [place] [address], [place] Potassium [Moles/Vol] 3.9 mmol/L Normal 3.5-5.1 [facility] Comment on above: Order Comment: No: D o not add to previous draw Performed By: #### 5 0103 #### [facility] [address] [place] [address], [place] Sodium [Moles/Vol] 137 mmol/L Normal 136-145 [facility] Comment on above: Order Comment: No: D o not add to previous draw Performed By: #### 5 0103 #### [facility] [address] [place] [address], [place] Urea nitrogen [Mass/Vol] 15 mg/dL Normal 7-25 [facility] Comment on above: Order Comment: No: D o not add to previous draw Performed By: #### 5 0103 #### [facility] [address] [place] [address], [place] CBC COMPLETE BLOOD COUNTon - Erythrocyte distribution width (RBC) [Ratio] 13.9 % Normal 11.5-15.0 [facility] Comment on above: Order Comment: No: D o not add to previous draw Performed By: #### 5 0103 #### [facility] [address] Hematocrit (Bld) [Volume fraction] 50.0 % Normal 39.0-50.0 [facility] Comment on above: Order Comment: No: D o not add to previous draw Performed By: #### 5 0103 #### [facility] [address] [place] [id number], [facility] Hemoglobin (Bld) [Mass/Vol] 16.0 g/dL Normal 13.0-17.0 [facility] Comment on above: Order Comment: No: D o not add to previous draw Performed By: #### 5 0103 #### [facility] [address] [place] [address], [facility] MCH (RBC) [Entitic mass] 27.5 pg Normal 27.0-33.0 [facility] Comment on above: Order Comment: No: D o not add to previous draw Performed By: #### 5 0103 #### [facility] [address] MCHC (RBC) [Mass/Vol] 32.0 g/dL Normal 32.0-35.0 [facility] Comment on above: Order Comment: No: D o not add to previous draw Performed By: #### 5 0103 #### [facility] [address] [place] [address], [facility] MCV (RBC) [Entitic vol] 85.9 fL Normal 82.0-98.0 [facility] Comment on above: Order Comment: No: D o not add to previous draw Performed By: #### 5 0103 #### [facility] [address] [place] [address], [facility] Nucleated RBC/100 WBC (Bld) [Ratio] 0 % Normal 0-0 [facility] Comment on above: Order Comment: No: D o not add to previous draw Performed By: #### 5 0103 #### [facility] [address] PLAT CNT 249 10*3/uL Normal 150-400 [facility] Comment on above: Order Comment: No: D o not add to previous draw Performed By: #### 5 0103 #### [facility] [address] [place] [address], [facility] RBC (Bld) [#/Vol] 5.82 10*6/uL High 4.20-5.70 The [facility] Comment on above: Order Comment: No: D o not add to previous draw Performed By: #### 5 0103 #### [facility] [address] [place] [address], [facility] WBC (Bld) [#/Vol] 15.85 10*3/uL High 4.00-10.60 [facility] Comment on above: Order Comment: No: D o not add to previous draw Performed By: #### 5 0103 #### [facility] [address] Operative Reporton 9 Operative Report MR#: [id number] I [facility] Pt. Name: Matty Garces Room #: [id number] Discharge Date: Birthdate: 1970 OPERATIVE REPORT DATE OF SURGERY: 01/30/2019 SURGEON: Luciano Vieira M.D. 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 POSTOPERATIVE DIAGNOSIS: Failed instrumentation at C6-7 on the right. AUTO TRANSMISSION TECHNICIAN: ADENIKE Lugo. ANESTHESIA: Endotracheal, Hogan. PROCEDURES: [...] Vieira M.D. Date Trans: 01/31/2019 02:31 Eze/sasha [id number] cc: Venus Mendez M.D. [address] [place] [address] Normal [facility] CERVICAL SPINE 2 OR 3 [facility] 01-30-2019 CERVICAL SPINE 2 OR 3 [facility] Department of Radiology [address] [place] [phone] Patient Name: MATTY GARCES : 1970 Sex: M Age: Race: White Pt. Location: Patient Status: O Ordered Date: 01/30/2019 7:05:00 AM Completed Date: 01/30/2019 04:12 PM Requesting Provider: LUCIANO VIEIRA Attending Provider: LUCIANO VIEIRA Report Copy To: Signs & Symptoms: C6-7 ACDF History: C6-7 ACDF Comments: C6-7 ACDF Exam: CERVICAL SPINE 2 OR 3 [facility] CERVICAL SPINE 2 OR 3 [facility] 01/30/2019 4:12 PM EDT SIGNS AND SYMPTOMS: C6-7 ACDF TECHNOLOGIST COMMENTS: Intra op ACDF C6-7 with , 30 sec of fluoro time used QUESTION FOR THE RADIOLOGIST: C6-7 ACDF PROTOCOLS: AP, Odontoid and Lateral views were obtained. COMPARISON: None FINDINGS: 5 images were obtained. Fluoroscopic time as utilized above. IMPRESSION: For documentation Electronically signed by:Justus Montano. Transcribed by: [email or web address], User Resident: Electronically Signed by: JUSTUS MONTANO @ 01/30/2019 04:18 PM Normal [facility] Comment on above: Order Comment: C6-7 ACDF POC GLUCOSE LABon 01-30-2019 Glucose [Mass/Vol] 106 mg/dL High 70-100 [facility] Comment on above: Performed By: #### 5 0103 #### [facility] [address] [facility]. [address] *MRSA/MSSA DNA NASALon 01-23 *MRSA/MSSA DNA NASAL Clinical Report: (D ) Specimen: NASAL SWAB Collected: 01/23/2019 15:02 Status: Final Last Updated: 01/23/2019 20:14 MSSA DNA (Final) Methicillin Susceptible Staphylococcus aureus DNA Detected MRSA DNA (Final) No Methicillin Resistant Staphylococcus aureus DNA Detected Normal [facility] Comment on above: Performed By: #### 5 0103 #### [facility] [address] APTTon 01-23-2019 aPTT Coag (Bld) [Time] 35.4 s High 25.0-35.0 [facility] Comment on [...] THIS PURPOSE. Performed By: #### 5 7307, 13452 #### [facility] [address] [facility]. [address] BASIC METABOLIC PANELon 01-11 Calcium [Mass/Vol] 9.5 mg/dL Normal 8.6-10.3 [facility] Comment on above: Performed By: #### 5 7307, 20249 #### [facility] [address] Chloride [Moles/Vol] 101 mmol/L Normal 98-107 [facility] Comment on above: Performed By: #### 5 7307, 70808 #### [facility] [address] [place] [address], [place] CO2 [Moles/Vol] 29 mmol/L Normal 21-31 [facility] Comment on above: Performed By: #### 5 73, 46570 #### [facility] [address] [place] [address], [place] Creatinine [Mass/Vol] 1.08 mg/dL Normal 0.70-1.30 [facility] Comment on above: Performed By: #### 5 7306, 34259 #### [facility] [address] [place] [address], [place] GFR/1.73 sq M predicted among blacks MDRD (S/P/Bld) [Vol rate/Area] mL/min/{1.73_m2} Normal >60 [facility] Comment on above: Performed By: #### 5 7306, 85017 #### [facility] [address] [place] [address], [place] GFR/1.73 sq M predicted among non-blacks MDRD (S/P/Bld) [Vol rate/Area] mL/min/{1.73_m2} Normal >60 [facility] Comment on above: Performed By: #### 5 7306, 72744 #### [facility] [address] [place] [address], [place] Glucose [Mass/Vol] 87 mg/dL Normal 70-100 [facility] Comment on above: Performed By: #### 5 7306, 18513 #### [facility] [address] [place] [address], [place] Potassium [Moles/Vol] 4.0 mmol/L Normal 3.5-5.1 [facility] Comment on above: Performed By: #### 5 7306, 50776 #### [facility] [address] [place] [address], [place] Sodium [Moles/Vol] 137 mmol/L Normal 136-145 [facility] Comment on above: Performed By: #### 5 7307, 74983 #### [facility] [address] Urea nitrogen [Mass/Vol] 12 mg/dL Normal 7-25 [facility] Comment on above: Performed By: #### 5 73Al, 83577 #### [facility] [address] CBC W/DIFFon 01-23-2019 ABS BASOPHILS 0.1 10*3/uL Normal 0.0-0.2 [facility] Comment on above: Performed By: #### 5 73Al, 73430 #### [facility] [address] ABS IMM GRANS 0.0 10*3/uL Normal 0.0-0.2 [facility] Comment on above: Performed By: #### 5 Al, 65768 #### [facility] [address] ABS NEUTROPHILS 5.3 10*3/uL Normal 1.6-7.6 The [facility] Comment on above: Performed By: #### 5 Al, 03602 #### [facility] [address] Basophils/100 WBC (Bld) 0.9 % Normal 0.0-1.0 [facility] Comment on above: Performed By: #### 5 73Al, 47719 #### [facility] [address] [place] [address], [facility] Eosinophils (Bld) [#/Vol] 0.2 10*3/uL Normal 0.0-0.5 [facility] Comment on above: Performed By: #### 5 73Al, 82478 #### [facility] [address] [facility] [place] [address], [facility] Eosinophils/100 WBC (Bld) 2.3 % Normal 0.0-6.0 [facility] Comment on above: Performed By: #### 5 7306, 72294 #### [facility] [address] Erythrocyte distribution width (RBC) [Ratio] 13.8 % Normal 11.5-15.0 [facility] Comment on above: Performed By: #### 7306, 78678 #### [facility] [address] [facility] [place] [address], [facility] Hematocrit (Bld) [Volume fraction] 49.6 % Normal 39.0-50.0 [facility] Comment on above: Performed By: #### 7306, 89587 #### [facility] [address] Hemoglobin (Bld) [Mass/Vol] 16.4 g/dL Normal 13.0-17.0 [facility] Comment on above: Performed By: #### 7306, 14499 #### [facility] [address] [place] [address], [facility] IMMATURE GRANS 0.5 % Normal 0.0-1.0 [facility] Comment on above: Performed By: #### 5 7306, 97516 #### [facility] [address] [facility] [place] [address], [facility] Lymphocytes (Bld) [#/Vol] 1.2 10*3/uL Normal 1.2-4.0 [facility] Comment on above: Performed By: #### 5 7306, 81847 #### [facility] [address] [place] [address], [facility] Lymphocytes/100 WBC (Bld) 16.6 % Low 20.0-45.0 [facility] Comment on above: Performed By: #### 5 7306, 91971 #### [facility] [address] [place] [id number], [facility] MCH (RBC) [Entitic mass] 27.8 pg Normal 27.0-33.0 [facility] Comment on above: Performed By: #### 5 7306, 28264 #### [facility] [address] [place] [address], [facility] MCHC (RBC) [Mass/Vol] 33.1 g/dL Normal 32.0-35.0 [facility] Comment on above: Performed By: #### 5 7306, 25946 #### [facility] [address] [place] [address], [facility] MCV (RBC) [Entitic vol] 84.2 fL Normal 82.0-98.0 [facility] Comment on above: Performed By: #### 5 7306, 10824 #### [facility] [address] [place] [address], [facility] Monocytes (Bld) [#/Vol] 0.7 10*3/uL Normal 0.1-1.0 [facility] Comment on above: Performed By: #### 5 7306, 26597 #### [facility] [address] [place] [address], [facility] MONOS 9.4 % Normal 5.0-12.0 [facility] Comment on above: Performed By: #### 5 7306, 96671 #### [facility] [address] [place] [id number], [facility] Neutrophils/100 WBC (Bld) 70.3 % Normal 40.0-72.0 [facility] Comment on above: Performed By: #### 5 7306, 28852 #### [facility] [address] [place] [id number], [facility] Nucleated RBC/100 WBC (Bld) [Ratio] 0 % Normal 0-0 [facility] Comment on above: Performed By: #### 5 7306, 46406 #### [facility] [address] [place] [address], [facility] PLAT CNT 235 10*3/uL Normal 150-400 [facility] Comment on above: Performed By: #### 5 7307, 79255 #### [facility] [address] [place] [address], [facility] RBC (Bld) [#/Vol] 5.89 10*6/uL High 4.20-5.70 [facility] Comment on above: Performed By: #### 5 7307, 11979 #### [facility] [address] [place] [address], [facility] WBC (Bld) [#/Vol] 7.48 10*3/uL Normal 4.00-10.60 [facility] Comment on above: Performed By: #### 5 7307, 19329 #### [facility] [address] PROTHROMBIN TIMEon 9 INR Coag (PPP) [Relative time] 1.12 {INR} Normal 0.91-1.16 [facility] Comment on [...] CHEST 1995;108:231S-246S. Performed By: #### 5 7307, 62254 #### [facility] [address] PT Coag (PPP) [Time] 14.4 s Normal 12.3-14.8 [facility] Comment on above: Result Comment: ALL RESULTS MUST BE INTERPRETED WITH RESPECT TO BLOOD DRAWING ARTIFACT OR DILUTION ERROR OF ANTICOAGULANT AT THE TIME OF SAMPLING. Performed By: #### 5 7307, 74083 #### [facility] [address] [facility]. [address] TYPE AND SCREENon 01-23-2019 ABO INTERPRETATION A Normal [facility] Comment on above: Performed By: #### 5 7307, 10474 #### [facility] [address] RH INTERPRETATION Positive Normal The [facility] Comment on above: Performed By: #### 5 7307, 61056 #### [facility] [address] [facility]. [address] 3D CERVICAL SPINE WO CONT RASTon 01-12-2019 CT 3D CERVICAL SPINE WO CONTRAST [facility] Department of Radiology [address] [place] [phone] Patient Name: MATTY GARCES : 1970 Sex: M Age: Race: White Pt. Location: Patient Status: D Ordered Date: 01/10/2019 2:15:00 PM Completed Date: 01/12/2019 10:32 AM Requesting Provider: LUCIANO VIEIRA Attending Provider: LUCIANO VIEIRA Report Copy To: VENUS MENDEZ Signs & Symptoms: M48.02 Spinal stenosis, cervical region I10 History: Althea para auth # [id number] 01/10/19-02/09/19 [id number] *er Comments: Exam: CT 3D CERVICAL SPINE [...] incomplete Electronically signed by:Ten Garland. Transcribed by: [email or web address], User Resident: Electronically Signed by: TEN GARLAND @ 01/13/2019 09:18 AM Normal [facility] CERVICAL SPINE 2 OR 3 [facility] 01-05-2019 CERVICAL SPINE 2 OR 3 [facility] Department of Radiology [address] [place] [phone] Patient Name: MATTY GARCES : 1970 [...] , Exam: CERVICAL SPINE 2 OR 3 [facility] CERVICAL SPINE 2 OR 3 [facility] 01/05/2019 9:06 AM EDT SIGNS [...] findings. Electronically signed by:Ten Garland. Transcribed by: [email or web address], User Resident: SHELLY DELA CRUZ Electronically Signed by: TEN GARLAND @ 01/05/2019 12:37 PM I personally read this/these film(s) with this resident Normal [facility] Comment on above: Order Comment: , , = ========= , Ordering Provider - LUCIANO VIEIRA MD , CERVICAL SPINE 2 OR 3 [facility] 08-30-2018 CERVICAL SPINE 2 OR 3 [facility] Department of Radiology [address] [place] [phone] Patient Name: MATTY GARCES : 1970 [...] findings. Electronically signed by:Bella King. Transcribed by: [email or web address], User Resident: RYAN HEAD Electronically Signed by: BELLA KING @ 08/30/2018 05:45 PM I personally read this/these film(s) with this resident Normal [facility] Comment on above: Order Comment: , POS T OP XRAY AP/LAT ONLY , POST OP XRAY AP/LAT ONLY , , , Ordering Provider - LUCIANO VIEIRA MD , Operative Reporton 8 Operative Report MR#: [id number] I [facility] Pt. Name: Matty Garces Room #: [id number] Discharge Date: Birthdate: 1970 OPERATIVE REPORT DATE OF SURGERY: 08/17/2018 SURGEON: Luciano Vieira M.D. PREOPERATIVE DIAGNOSIS: Herniated cervical disk at C6-7. POSTOPERATIVE DIAGNOSIS: Herniated cervical disk at C6-7. AUTO TRANSMISSION TECHNICIAN: ADENIKE Larios. ANESTHESIA: Endotracheal, Braida. PROCEDURE: [...] Vieira M.D. Date Trans: 08/17/2018 11:25 P/sasha [id number] cc: Venus Mendez M.D. [address] [facility] Eze [facility] [phone] [place] [facility] CERVICAL SPINE 2 OR 3 [facility] 08-17-2018 CERVICAL SPINE 2 OR 3 [facility] Department of Radiology [address] [place] [phone] Patient Name: MATTY GARCES : 1970 [...] findings. Electronically signed by:Bernice Hoyt. Transcribed by: [email or web address], User Resident: EMILE TINAJERO Electronically Signed by: BERNICE HOYT @ 08/18/2018 01:06 PM I personally read this/these film(s) with this resident Normal [facility] Comment on above: Order Comment: C6-7 ACDF with POC GLUCOSE LABon 08-17-2018 Glucose [Mass/Vol] 113 mg/dL High 70-100 [facility] Comment on above: Performed By: #### 8 5499 #### [facility] [address] [place] [address], [facility] RBC'S 2 UNITSon 08-17-2018 CROSSMATCH INTERP [address] [facility] Comment on above: Performed By: #### 8 6002 #### [facility] [address] [place] [address], [facility] CROSSMATCH INTERP 2 COMP Normal [facility] Comment on above: Performed By: #### 8 6002 #### [facility] [address] [place] [address], [facility] PRODUCT CODE 1 E0336 Normal [facility] Comment on above: Performed By: #### 8 6002 #### [facility] [address] [place] [address], [facility] PRODUCT CODE 2 E0336 Normal [facility] Comment on above: Performed By: #### 8 6002 #### [facility] [address] [place] [address], [facility] PRODUCT STATUS 1 RE Normal [facility] Comment on above: Result Comment: Resu lt changed by IF on 08/20/2018 07:48. The previous value was XM. Performed By: #### 8 6002 #### [facility] [address] [place] [address], [facility] PRODUCT STATUS 2 RE Normal [facility] Comment on above: Result Comment: Resu lt changed by IF on 08/20/2018 07:48. The previous value was XM. Performed By: #### 8 [id number] #### [facility] [address] UNIT ABO 1 A Normal [facility] Comment on above: Performed By: #### 8 6002 #### [facility] [address] UNIT ABO 2 A Normal [facility] Comment on above: Performed By: #### 8 6002 #### [facility] [address] [facility] UNIT ID 1 [id number] Normal [facility] Comment on above: Performed By: #### 8 6002 #### [facility] [address] [facility]. [address] UNIT ID 2 [id number] Normal [facility] Comment on above: Performed By: #### 8 6002 #### [facility] [address] [facility]. [address] UNIT RH 1 Positive Normal [facility] Comment on above: Performed By: #### 8 6002 #### [facility] [address] [facility]. [address] UNIT RH 2 Positive Normal [facility] Comment on above: Performed By: #### 8 [id number] #### [facility] [address] [facility]. [address] *MRSA/MSSA CULTUREon 08-02- 018 *MRSA/MSSA CULTURE Clinical Report: (D) Specimen: NASAL SWAB Collected: 08/02/2018 12:37 Status: Final Last Updated: 08/03/2018 14:26 ISO (Final) No Methicillin Resistant Staphylococcus aureus Isolated (MRSA) ISO (Final) Methicillin Sensitive Staphylococcus aureus (MSSA) Isolated Normal [facility] Comment on above: Performed By: #### 3 1302 #### [facility] [address] APTTon 08-02-2018 aPTT Coag (Bld) [Time] 31.2 s Normal 25.0-35.0 [facility] Comment on above: Result Comment: ALL [...] THIS PURPOSE. Performed By: #### 5 7307, [id number] #### [facility] [address] [place] [address], [facility] BASIC METABOLIC PANELon 07-15 Calcium [Mass/Vol] 9.4 mg/dL Normal 8.6-10.3 [facility] Comment on above: Performed By: #### 0 0071 #### [facility] [address] [place] [address], [facility] Chloride [Moles/Vol] 103 mmol/L Normal 98-107 [facility] Comment on above: Performed By: #### 0 0071 #### [facility] [address] [place] [address], [facility] CO2 [Moles/Vol] 29 mmol/L Normal 21-31 [facility] Comment on above: Performed By: #### 0 0071 #### [facility] [address] [place] [address], [facility] Creatinine [Mass/Vol] 1.06 mg/dL Normal 0.70-1.30 [facility] Comment on above: Performed By: #### 0 0071 #### [facility] [address] [place] [address], [facility] GFR/1.73 sq M predicted among blacks MDRD (S/P/Bld) [Vol rate/Area] mL/min/{1.73_m2} Normal >60 [facility] Comment on above: Performed By: #### 0 0071 #### [facility] [address] [place] [address], [facility] GFR/1.73 sq M predicted among non-blacks MDRD (S/P/Bld) [Vol rate/Area] mL/min/{1.73_m2} Normal >60 [facility] Comment on above: Performed By: #### 0 0071 #### [facility] [address] [place] [address], [facility] Glucose [Mass/Vol] 84 mg/dL Normal 70-100 [facility] Comment on above: Performed By: #### 0 0071 #### [facility] [address] [place] [address], [facility] Potassium [Moles/Vol] 4.0 mmol/L Normal 3.5-5.1 [facility] Comment on above: Performed By: #### 0 0071 #### [facility] [address] [place] [address], [facility] Sodium [Moles/Vol] 140 mmol/L Normal 136-145 [facility] Comment on above: Performed By: #### 0 0071 #### [facility] [address] [place] [address], [facility] Urea nitrogen [Mass/Vol] 20 mg/dL Normal 7-25 [facility] Comment on above: Performed By: #### 0 0071 #### [facility] [address] [place] [address], [facility] CBC W/DIFFon 08-02-2018 ABS BASOPHILS 0.1 10*3/uL Normal 0.0-0.2 [facility] Comment on above: Performed By: #### 5 0103 #### [facility] [address] [place] [address], [facility] ABS IMM GRANS 0.1 10*3/uL Normal 0.0-0.2 [facility] Comment on above: Performed By: #### 5 0103 #### [facility] [address] [place] [address], [facility] ABS NEUTROPHILS 4.2 10*3/uL Normal 1.6-7.6 [facility] Comment on above: Performed By: #### 5 0103 #### [facility] [address] [place] [address], [facility] Basophils/100 WBC (Bld) 1.3 % High 0.0-1.0 [facility] Comment on above: Performed By: #### 5 0103 #### [facility] [address] [place] [address], [facility] Eosinophils (Bld) [#/Vol] 0.1 10*3/uL Normal 0.0-0.5 [facility] Comment on above: Performed By: #### 5 0103 #### [facility] [address] [facility] [place] [address], [facility] Eosinophils/100 WBC (Bld) 2.0 % Normal 0.0-6.0 [facility] Comment on above: Performed By: #### 5 0103 #### [facility] [address] [place] [address], [facility] Erythrocyte distribution width (RBC) [Ratio] 13.6 % Normal 11.5-15.0 [facility] Comment on above: Performed By: #### 5 0103 #### [facility] [address] [facility] [place] [address], [facility] Hematocrit (Bld) [Volume fraction] 44.3 % Normal 39.0-50.0 [facility] Comment on above: Performed By: #### 5 0103 #### [facility] [address] Hemoglobin (Bld) [Mass/Vol] 15.1 g/dL Normal 13.0-17.0 [facility] Comment on above: Performed By: #### 5 0103 #### [facility] [address] [place] [address], [facility] IMMATURE GRANS 1.1 % High 0.0-1.0 [facility] Comment on above: Performed By: #### 5 0103 #### [facility] [address] [place] [address], [facility] Lymphocytes (Bld) [#/Vol] 1.2 10*3/uL Normal 1.2-4.0 [facility] Comment on above: Performed By: #### 5 0103 #### [facility] [address] [place] [address], [facility] Lymphocytes/100 WBC (Bld) 18.3 % Low 20.0-45.0 [facility] Comment on above: Performed By: #### 5 0103 #### [facility] [address] [place] [address], [facility] MCH (RBC) [Entitic mass] 29.0 pg Normal 27.0-33.0 [facility] Comment on above: Performed By: #### 5 0103 #### [facility] [address] [facility] [place] [address], [facility] MCHC (RBC) [Mass/Vol] 34.1 g/dL Normal 32.0-35.0 [facility] Comment on above: Performed By: #### 5 0103 #### [facility] [address] [place] [address], [facility] MCV (RBC) [Entitic vol] 85.0 fL Normal 82.0-98.0 [facility] Comment on above: Performed By: #### 5 3 #### [facility] [address] [facility] [place] [address], [facility] Monocytes (Bld) [#/Vol] 0.7 10*3/uL Normal 0.1-1.0 [facility] Comment on above: Performed By: #### 5 0103 #### [facility] [address] [place] [id number], [facility] MONOS 11.1 % Normal 5.0-12.0 [facility] Comment on above: Performed By: #### 5 0103 #### [facility] [address] [place] [address], [facility] Neutrophils/100 WBC (Bld) 66.2 % Normal 40.0-72.0 [facility] Comment on above: Performed By: #### 5 102 #### [facility] [address] [place] [id number], [facility] Nucleated RBC/100 WBC (Bld) [Ratio] 0 % Normal 0-0 [facility] Comment on above: Performed By: #### 5 102 #### [facility] [address] [place] [address], [facility] PLAT CNT 179 10*3/uL Normal 150-400 [facility] Comment on above: Performed By: #### 5 102 #### [facility] [address] [place] [id number], [facility] RBC (Bld) [#/Vol] 5.21 10*6/uL Normal 4.20-5.70 [facility] Comment on above: Performed By: #### 5 3 #### [facility] [address] [place] [id number], [facility] WBC (Bld) [#/Vol] 6.39 10*3/uL Normal 4.00-10.60 [facility] Comment on above: Performed By: #### 5 102 #### [facility] [address] [place] [address], [facility] CERVICAL SPINE 4 OR 5 VIEWSo n 08-02-2018 CERVICAL SPINE 4 OR 5 VIEWS [facility] Department of Radiology [address] [place] [address] Patient Name: MATTY GARCES : [...] findings. Electronically signed by:Bella King. Transcribed by: [email or web address], User Resident: EMILE TINAJERO Electronically Signed by: BELLA KING @ 08/03/2018 11:58 AM I personally read this/these film(s) with this resident Normal [facility] Comment on above: Order Comment: , PRE OP XRAY AP/LAT \EANDE\ FLEX/EX , PREOP XRAY AP/LAT \EANDE\ FLEX/EX , , , Ordering Provider - LUCIANO VIEIRA MD , PROTHROMBIN TIMEon 8 INR Coag (PPP) [Relative time] 1.15 {INR} Normal 0.91-1.16 [facility] Comment on [...] CHEST 1995;108:231S-246S. Performed By: #### 5 7307, [id number] #### [facility] [address] [place] [address], [facility] PT Coag (PPP) [Time] 14.7 s Normal 12.3-14.8 [facility] Comment on above: Result Comment: ALL RESULTS MUST BE INTERPRETED WITH RESPECT TO BLOOD DRAWING ARTIFACT OR DILUTION ERROR OF ANTICOAGULANT AT THE TIME OF SAMPLING. Performed By: #### 5 7307, [id number] #### [facility] [address] [place] [address], [facility] TYPE AND SCREENon 08-02-2018 ABO INTERPRETATION A Normal [facility] Comment on above: Order Comment: 2 uni ts 2 units 2 units 2 units 2 units Performed By: #### 6 2586 #### [facility] [address] [place] [address], [facility] RH INTERPRETATION Positive Normal The [facility] Comment on above: Order Comment: 2 uni ts 2 units 2 units 2 units 2 units Performed By: #### 6 2586 #### [facility] [address] [place] [place] [address], [facility] URINALYSIS REFLEXon 08-02-20 18 Appearance (U) CLEAR Normal CLEAR [facility] Comment on above: Performed By: #### 3 0946 #### [facility] [address] [place] [address], [facility] Bilirubin [Mass/Vol] Negative Normal NEGATIVE [facility] Comment on above: Performed By: #### 3 0910 #### [facility] [address] [place] [place] [address], [facility] BLOOD Negative Normal NEGATIVE [facility] Comment on above: Performed By: #### 3 0919 #### [facility] [address] [place] [id number], [facility] Color (U) YELLOW Normal YELLOW [facility] Comment on above: Performed By: #### 3 0965 #### [facility] [address] [place] [address], [facility] Glucose [Mass/Vol] 150 mg/dL Abnormal NEGATIVE [facility] Comment on above: Performed By: #### 3 0965 #### [facility] [address] [place] [address], [facility] KETONE Negative Normal NEGATIVE [facility] Comment on above: Performed By: #### 3 0965 #### [facility] [address] [place] [address], [place] Negative Normal NEGATIVE [facility] Comment on above: Performed By: #### 3 0965 #### [facility] [address] [place] [address], [facility] MICRO NOT DONE negative chemical reactions unless requested in original order Normal [facility] Comment on above: Performed By: #### 3 0965 #### [facility] [address] [place] [address], [facility] Nitrite Ql (U) Negative Normal NEGATIVE [facility] Comment on above: Performed By: #### 3 0965 #### [facility] [address] [place] [address], [facility] pH (Bld) 5.0 Normal 5.0-8.0 [facility] Comment on above: Performed By: #### 3 0965 #### [facility] [address] [place] [address], [facility] Protein (U) [Mass/Vol] Negative Normal NEGATIVE [facility] Comment on above: Performed By: #### 3 0965 #### [facility] [address] [place] [address], [place] SPEC GRAV 1.024 High 1.015-1.020 [facility] Comment on above: Performed By: #### 3 0965 #### [facility] [address] Vital Signs Date Time Vital Sign Value Performing Clinician Molly bnun 02-25-2022 10:30-0400 Blood Pressure Location Viola Lue [facility] 02-25-2022 10:30-0400 Diastolic blood pressure 107 mm[Hg] Viola Lue [facility] 02-25-2022 10:30-0400 Heart rate 74 /min Viola Lue [facility] 02-25-2022 10:30-0400 Respiratory rate 16 /min Viola Lue [facility] 02-25-2022 10:30-0400 Systolic blood pressure 157 mm[Hg] Viola Lue [facility] Encounters Encounter Date Encounter Type Care Provider Facility Start: 01-10-2024 End: 01-11-2024 ambulatory VALENCIA Pate APLALEXI Not Available Start: 01-03-2024 End: 01-03-2024 ambulatory Trey Vallejo [facility] Work Phone: Start: 01-03-2024 End: 01-03-2024 Departed Referred DPM Trey Vallejo Work Phone: [facility] Start: 12-29-2023 End: 12-29-2023 ambulatory RUBÉN LOCO Not Available Start: 11-29-2023 End: 11-30-2023 ambulatory Diallo Beauchamp MD Facility:[facility] Start: 10-18-2023 End: 10-19-2023 ambulatory Diallo Beauchamp MD Facility:[facility] Start: 09-27-2023 End: 09-27-2023 ambulatory RUBÉN LOCO Not Available Start: 08-30-2023 End: 08-31-2023 ambulatory Diallo Beauchamp MD Facility:[facility] Start: 07-12-2023 End: 07-13-2023 ambulatory Diallo Beauchamp MD Facility:[facility] Start: 06-14-2023 End: 06-15-2023 ambulatory Diallo Beauchamp MD Facility:[facility] Start: 12-06-2022 End: 12-06-[address] VENUS MENDEZ . Facility: Start: 12-05-2022 Encounter for genera l adult medical examination without abnormal findings DR VENUS MENDEZ . [facility] Start: 12-01-2022 End: 12-02-2022 ambulatory [...] encounter procedure Viola Grullon [facility] Start: 01-04-2022 End: 01-05-[address] VENUS MENDEZ . Facility: Start: 01-30-2019 End: 02-01-2019 Evaluation and management of inpatient PROVIDER UNKNOWN Facility:[facility] Start: 08-17-2018 End: 08-18-2018 Patient encounter procedure PROVIDER UNKNOWN Facility:[facility] Procedures Date Procedure Procedure Detail Performing Clinician Start: 12-01-[address] FRANKLIN MENDEZ . Comment on above: Performed By: #### P [facility] #### [facility] [address] [place] [address] Dr. Shabnam Rae Start: 01-30-2019 FUSION CERV JT W INT BD FUS DEV, ANT APPR A COL, OPEN AZ[facility]INE [facility] Start: 01-30-2019 REMOVAL OF INT FIX F ROM CERVCAL VERTEBRA, OPEN APPROACH [facility] Start: 01-23-2019 Antibody screen PROVIDE R UNKNOWN Comment on above: Performed By: #### 5 7307, 15067 #### [facility] [address] Start: 08-17-2018 ANESTH SPINE CORD SURGERY [...] By: #### 6 2586 #### [facility] [address] Colonoscopy Viola Grullon Hemorrhoids (disorder) Viola Grullon Hernia of abdominal cavity (disorder) Violafranko Grullon Tonsillectomy Viola Mitchel Payers Date Payer Category Payer Self-pay [id number] 2022 Medicaid [id number] 2022 Unknown 1970 Unknown [id number] 2.16.8 40.1.233331.3.579.2.647 1969 Unknown [id number] 2.16.8 40.1.215847.3.579.2.647 1969 Unknown [id number] 2.16.84 0.1.114818.3.579.2.593 1969 Unknown [id number] 2.16.84 0.1.187376.3.579.2.593 1969 Unknown [id number] 2.16.84 0.1.069690.3.579.2.593 1969 Unknown [id number] 2.16.84 0.1.416936.3.579.2.593 1969 Unknown [id number] 2.16.84 0.1.862929.3.579.2.593 1969 Unknown [id number] 2.16.84 0.1.032889.3.579.2.593 1969 Unknown [id number] 2.16. 840.1.923609.3.579.2.196 1969 Unknown [id number] 2.16. 840.1.887924.3.579.2.196 1969 Unknown [id number] 2.16. 840.1.811722.3.579.2.196 1969 Unknown [id number] 2.16. 840.1.835551.3.579.2.196 1969 Unknown [id number] 2.16. 840.1.864390.3.579.2.196 1969 Unknown [id number] 2.16.84 0.1.496323.3.579.2.1259 1969 Unknown [id number] 2.16.84 0.1.352366.3.579.2.1259 1969 Unknown [id number] 2.16.84 0.1.047238.3.579.2.1259 1969 Unknown [id number] 2.16.84 0.1.409418.3.579.2.1259 1959 Unknown [id number] Unknown [id number] Unknown [id number] 2.16.8 40.1.812847.3.579.2.531 Social History Date Type Detail Facility Tobacco smoking status No Smokin g Status Entered [facility] [employer] Sex Assigned At Male [facility] Start: 05-15-2018 Tobacco smoking stat NHIS Ex-smoker (finding) [facility] Start: 1970 Sex Assigned At Male [facility] Functional Status Date Assessment Result Facility 02-25-2022 Functional Status N/A [facility] [employer] Progress note 06-09-2023 Note Date & Type Note Facility 06-09-2023 Note [facility] Continue GDMT- Diuretic therapy Monitor daily weights, I&O, fluid restriction 1.5-2L/day, renal function and electrolytes- [facility] Clinical Note 03-26-2022 Note Date [...] by: ALVINA CAICEDO Date: 2022-03-26 10:[address] [facility] Discharge instructions 02-25-2022 Note Date & [...] Watch the hydrocele for any changes. Take [id number] and prescription medicines only as told by [...] 02/17/2011 Document Revised: 09/10/2018 Document Reviewed: 09/10/2018 [employer] Patient Education 2020 [employer]. Follow Up Care 01/28/2022 10:36:35 With:Mitchel DELGADO, [place] Gregorio, URO Address: When: Unknown [facility] Evaluation + Plan note Note Date & Type Note Facility Evaluation + Plan note No data available for this section [facility] Evaluation note Note Date & Type Note Facility Evaluation note No assessment information availa [facility] Work Phone: Progress note Note Date & Type Note Facility Progress note No data available for this section [facility] Summary Purpose Family History No Family History Records FoundNo Family History Records FoundNo Family History Records FoundNo Family History Records FoundNo Family History Records FoundNo Family History Records FoundNo Family History Records Found Advance Directives No Advanced Directives Records Found Advance Directive Response Recorded Date/ Time Advance Directives No May 12:42pm Hospital Course Note MR#: [id number] [facility] Pt. Name: Matty Garces Admitted: 01/30/2019 [...] and content) DATE CREATED AUTHOR 07/19/2019 [facility] DATE CREATED AUTHOR AUTHOR'S ORGANIZ ATION 02/27/2022 [facility] DATE CREATED AUTHOR AUTHOR'S ORGANIZ ATION 12/08/2022 [facility] DATE CREATED AUTHOR AUTHOR'S ORGANIZ ATION 06/17/2023 [facility] DATE CREATED AUTHOR AUTHOR'S ORGANIZ ATION 12/03/2023 [facility] DATE CREATED AUTHOR AUTHOR'S ORGANIZ ATION 01/15/2024 [facility] DATE CREATED AUTHOR AUTHOR'S ORGANIZ ATION 03/28/2024 [facility] ysician Group Care Team (unrecognized sect [...] BE BASED ON THE PRIMARY CLINICAL RECORDS. [facility] [employer] [facility]. provides no warranty or guarantee of the accuracy or completeness of information in this document.
== END 2024-06-13 11:22 | disposition home or self-care (01) ==
LOC: EC 11:21
PROVIDERS: PCP Family Medicine; Visit Provider Podiatrist Foot & Ankle Surgery
DX: M25.572 Pain in left ankle and joints of left foot (principal); S89.302D Unspecified physeal fracture of lower end of left fibula, subsequent encounter for fracture with routine healing
CPT/HCPCS: 73610

== ENCOUNTER 2024-07-04 08:49 | Outpatient (OUT) | payer MEDICAID, SELFPAY ==
--- NOTE | 2024-07-04 | XR_ITS ---
[address] [address] Patient Name: MATTY WADE MRN: [id number] date: 1970 Sex: M Assigned Patient Location: [facility] Current Patient Location: Accession/Order Number: [id number] Exam Date: 07/04/2024 08:59 Report Date: 07/08/2024 09:09 At the request of: CLARISA BOJORQUEZ Procedure: XR ankle LT min 3V EXAM: XR ankle LT min 3V HISTORY: LEFT ANKLE PAIN COMPARISON: 06/13/2024 FINDINGS/IMPRESSION: 1. Plate and screw fixation of the distal fibula. Screw fixation of the distal tibiofibular syndesmosis. 2. Ankle mortise is maintained. 3. Subcutaneous soft tissue edema about the ankle. 4. Ankle joint effusion. 5. Mild degeneration of the mid foot. 6. Calcaneal Achilles enthesophyte. Electronically authenticated by: MYRNA YOUNG Date: 07/08/2024 09:09
--- OUTSIDE RECORDS SUMMARY | 2024-07-04 09:09 | XMS_ITS | CCD ---
Author Organization [facility] Care Team Providers Care Forging Engineer Name Role Phone UNKNOWN, PROVIDER Admitting Unavailable [...] Surgeon Unavailable Venus Mendez Primary Care Physician [phone] DONOVAN Admitting Unavailable HOY [...] Primary Care Unavailable PADMINI GUILLORY Admitting Unavailable PADMINI GUILLORY Attending Unavailable MORENA ., DR ROBERTS Consulting [...] HOUGH Consulting Unavailable MAYRA BERNAL Consulting Unavailable Quynh DELGADO, Andisai Berkowitz Attending Unavailable Quynh DELGDAO, Andrius Berkowitz Attending Unavailable Quynh DELGADO, Andrius Woo Attending Unavailable Quynh DELGADO, Andrius Vytautprasanna Attending Unavailable Quynh DELGADO, Andrius Martinezytautprasanna Attending Unavailable CHINO Vallejo Attending Provider [phone] RUBÉN GEIGER Attending Unavailable RUBÉN GEIGER Attending Unavailable VALENCIA DE LEÓN Attending Unavailable VALENCIA DE LEÓN Referring Unavailable Trey Vallejo Attending Trey Packer Admitting Unavailable Mil DELGADO, Venus Whitt Primary Care Provider [phone] Allergies Allergy Classification Reported Allergen(s) Allergy Type Date of Onset Reaction(s) Facility (1 source) Aspartame Drug Allergy 08-17-20 18 [facility] Repository (1 source) avoid; Translations: [Unknown] Propensity to adverse reactions (disorder) 08-17-20 18 [facility] (1 source) vitamin B12; Translations: [cyanocobalamin] Drug Allergy Unknown (qualifier value) [facility] (1 source) Acetaminophen / HYDROcodone Drug Allergy [facility] (1 source) Corticosteroids Drug allergy (disorder) [facility] (1 source) fentaNYL Drug Allergy [facility] (1 source) Misc-Food; Translations: [Misc-Food] Food allergy (disorder) [facility] (1 source) Corticosteroids Drug allergy (disorder) 05-14-20 18 [facility] Repository (1 source) fentaNYL Drug Allergy 07-08-20 Unknown [facility] (1 source) HYDROcodone Drug Allergy 07-08-20 Unknown [facility] (1 source) Morphine And Codeine Drug Allergy 07-08-20 21 Unknown [facility] (1 source) Other Propensity to adverse reactions 07-08-20 21 [facility] Medications Current Medications Medication Drug Class(es) Dates Sig (Normalized) Sig (Original) acetaminophen 325 mg / HYDROcodone bitartrate 5 mg oral tablet (1 source) Opioid Agonist Start: 03-20-2024 HYDROcodone-acet aminophen ([place]) 5-325 MG tablet 03/20/2024 Active amantadine hydrochloride 100 mg oral tablet (1 source) Influenza A M2 Protein Inhibitor Start: 04-10-2024 End: 04-10-2025 take 1 tablet by mouth in the morning amantadine (Symmetrel) 100 MG tablet Indications: Excessive daytime sleepiness , Primary insomnia Take 1 tablet (100 mg) by mouth in the morning and at noon 180 tablet 3 04/10/2024 04/10/2025 Active aspirin 81 mg delayed release oral tablet (2 sources) Platelet Aggregation Inhibitor, Nonsteroidal Anti-inflammatory Drug Start: 05-14-2018 take 81 mg by mouth once daily Aspirin Active 81 MG PO Daily May 14, 2018 12:00am ASPIRIN 81 MG ch ewable tablet Chew 81 mg in the morning. Active B-D 3CC LUER-SAYRA SYR 23GX1 23G X 1 3 ML misc (1 source) Start: 05-18-2023 B-D 3CC LUER-L OK SYR 23GX1 23G X 1 3 ML misc USE 1 SYRINGE INTRAMUSCULARLY ONCE A WEEK 05/18/2023 Active Biotin (3 sources) Start: 02-26-2022 BIOTIN BIOTIN Start Date: 02/26/22 Status: Ordered Start: 05-14-2018 take 10 mg by mouth once daily Biotin Active 10 MG PO Daily May 14, 2018 12:00am carvedilol 25 mg oral tablet (3 sources) alpha-Adrenergic Jorge L, beta-Adrenergic Jorge L Start: 02-26-2022 carvedilol 25 mg Tab Refills(s) 0 Start Date: 02/26/22 Status: Ordered Start: 05-14-2018 take 12.5 mg by mout h twice daily Carvedilol Active 12.5 MG PO Twice daily May 14, 2018 12:00am celecoxib 100 mg oral capsule (1 source) Nonsteroidal Anti-inflammatory Drug CeleBREX 100 MG capsule 1 (one) time each day at the same time Active cholecalciferol 0.125 mg oral capsule (1 source) Vitamin D Start: 2023 cholecalciferol (Vitamin D-3) 125 MCG (5000 UT) capsule 03/15/2024 Active citalopram 20 mg oral tablet (1 source) Serotonin Reuptake Inhibitor Start: 2022 CeleXA 20 MG tablet 1 (one) time each day at the same time. 06/02/2023 Active clonazePAM 1 mg oral tablet (3 sources) Benzodiazepine Start: 2023 take 1 tablet by mouth at bedtime clonazePAM (KlonoPIN) 1 MG tablet Indications: Primary insomnia Take 1 tablet (1 mg) by mouth at bedtime 30 tablet 2 03/27/2024 Active Start: 02-26-2022 ClonazePAM 0.5 mg Tab Refills(s) [...] 2018 12:00am doxazosin 8 mg oral tablet (2 sources) alpha-Adrenergic Jorge L Start: 02-26-2022 doxazosin 8 mg oral tablet Refills(s) 0 Start Date: 02/26/22 Status: Ordered doxepin hydrochloride 10 mg oral capsule (3 sources) Tricyclic Antidepressant Start: 02-26-2022 doxepin 10 mg Cap Refills(s) 0 Start Date: 02/26/22 Status: Ordered DULoxetine 60 mg delayed release oral capsule (1 source) Serotonin and Norepinephrine Reuptake Inhibitor take 1 capsule by mouth in the morning DULoxetine (Cymbalta) [address] capsule Take 60 mg by mouth in the morning and 60 mg in the evening. Active escitalopram 20 mg oral tablet (1 source) Serotonin Reuptake Inhibitor take 1 tablet by mouth in the morning escitalopram (Lexapro) 20 MG tablet Take 20 mg by mouth in the morning. Active furosemide 20 mg oral tablet (1 source) Loop Diuretic take 1 tablet by mouth in the morning furosemide (Lasix) 20 MG tablet Take 20 mg by mouth in the morning. Active gabapentin 600 mg oral tablet (3 sources) Anti-epileptic Agent Start: 05-14-2018 gabapentin 600 mg Tab Refills(s) 0 Start Date: 02/26/22 Status: Ordered glycopyrrolate 1 mg oral tablet (2 sources) Start: 01-22-2023 take 1 tablet by mouth in the morning glycopyrrolate (Robinul) 1 MG tablet Take 1 mg by mouth in the morning and 1 mg before bedtime. 01/22/2023 Active Start: 02-26-2022 glycopyrrolate 1 mg oral tablet Refills(s) 0 Start Date: 02/26/22 Status: Ordered hydrOXYzine pamoate 25 mg oral capsule (1 source) Antihistamine Start: 05-11-2024 take 1 capsule by mouth once daily at bedtime hydrOXYzine pamoate (Vistaril) 25 MG capsule Indications: Primary insomnia TAKE ONE CAPSULE BY MOUTH ONCE DAILY AT BEDTIME 30 capsule 11 05/11/2024 Active lisinopril 10 mg oral tablet (1 source) Angiotensin Converting Enzyme Inhibitor Start: 05-14-2018 take 10 mg by mouth once daily Lisinopril Active 10 MG PO Daily May 14, 2018 12:00am meclizine hydrochloride 25 mg chewable tablet (1 source) Antiemetic Meclizine HCl 25 MG chewable tablet Chew 25 mg 1 (one) time each day at the same time. Active melatonin 10 mg oral capsule (1 source) Start: 07-14-2023 End: 07-13-2024 take 1 capsule by mouth at bedtime Melatonin 10 MG capsule Indications: Primary insomnia Take 10 mg by mouth at bedtime. 90 capsule 3 07/14/2023 07/13/2024 Active modafinil 200 mg oral tablet (2 sources) Sympathomimetic-lik e Agent Start: 04-10-2024 End: 07-09-2024 take 1 tablet by mouth in the morning modafinil (Provigil) 200 MG tablet Indications: Excessive daytime sleepiness , Obstructive sleep apnea TAKE 1 TABLET (200 MG) BY MOUTH IN THE MORNING AND AT NOON 180 tablet 04/10/2024 07/09/2024 Active Start: 02-26-2022 modafinil 200 mg Tab Refills(s) 0 Start Date: 02/26/22 Status: Ordered Multiple Vitamins-Minerals (Multi For Him 50+) tablet (1 source) Multiple Vitamins-Minerals (Multi For Him 50+) tablet as directed Orally Active omeprazole 40 mg delayed release oral capsule (1 source) Proton Pump Inhibitor Start: take 40 mg by mouth twice daily Omeprazole Active 40 MG PO Twice daily May 14, 2018 12:00am ondansetron 4 mg disintegrating oral tablet (3 sources) Serotonin-3 Receptor Antagonist Start: ondansetron ODT (Zofran-ODT) 4 MG disintegrating tablet 03/15/2024 Active Start: 05-14-2018 Ondansetron Ac tive 4 MG PO every 6 to 8 hours May 14, 2018 12:00am ondansetron (Zof ran) 4 MG tablet Take 4 mg by mouth if needed. Active OXcarbazepine 300 mg oral tablet (1 source) Anti-epileptic Agent take 1 tablet by mouth at bedtime OXcarbazepine (Trileptal) 300 MG tablet Take 300 mg by mouth at bedtime. Active pantoprazole 40 mg delayed release oral tablet (2 sources) Proton Pump Inhibitor Start: Pantoprazole [address] Tab Refills(s) 0 Start Date: 02/26/22 Status: Ordered potassium chloride 10 meq extended release oral tablet (1 source) Start: take 1 tablet by mouth at mealtime potassium chloride CR (Klor-Con) 10 MEQ ER tablet Take 10 mEq by mouth in the morning. Take with food. . 02/22/2023 Active sennosides, fci 8.6 mg oral tablet (1 source) Start: senna (Senokot) 8.6 MG tablet 03/15/2024 Active simvastatin 20 mg oral tablet (3 sources) HMG-CoA Reductase Inhibitor Start: simvastatin 20 mg Tab Refills(s) 0 Start Date: 02/26/22 Status: Ordered SUMAtriptan 100 mg oral tablet (2 sources) Serotonin-1b and Serotonin-1d Receptor Agonist Start: Sumatriptan Succinate Active 100 MG PO EVERY 2-4 HOURS May 14, 2018 12:00am take 1 tablet by mouth once ALAINA triptan (Imitrex) 100 MG tablet Take 100 mg by mouth 1 (one) time if needed. Active 1 ml testosterone cypionate 200 mg/ml injection (1 source) Androgen testosterone cyp ionate (Depo-Testosterone) 200 MG/ML injection Inject 200 mg into the shoulder, thigh, or buttocks every 14 (fourteen) days. Active tiZANidine 4 mg oral capsule (2 sources) Central alpha-2 Adrenergic Agonist Start: 018 take 4 mg by mouth at bedtime Tizanidine Active 4 MG PO Bedtime May 14, 2018 12:00am take 1 tablet by mouth at bedtim e tiZANidine (Zanaflex) 4 MG tablet Take 4 mg by mouth at bedtime. 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; Translations: [Unspecified mental disorder due to known physiological condition] Onset: 1 06-21-2023 Chronic Diabetes mellitus without complication (3 sources) Type 2 diabetes mellitus without complications; Translations: [Diabetes mellitus without complication] Onset: 8 06-24-2023 Chronic Disorders of lipid metabolism (1 source) Pure hypercholesterolemia, unspecified; Translations: [PURE HYPERCHOLESTEROLEMIA UNSPEC] Onset: 3 Chronic E Codes: Fall (1 source) Unspecified fall, initial encounter; Translations: [UNSPECIFIED FALL INITIAL ENCOUNTER] Onset: 3 Episodic Esophageal disorders (1 source) Gastro-esophageal reflux disease without esophagitis; Translations: [GERD WITHOUT ESOPHAGITIS] Onset: 3 Chronic Essential hypertension (2 sources) Essential (primary) hypertension; Translations: [Hypertensive disorder] Onset: 9 06-21-2023 Chronic Headache; including migraine (1 source) Migraine; Translations: [Migraine, unspecified, not intractable, without status migrainosus] Onset: 7 06-21-2023 Chronic Hyperplasia of prostate (1 source) Benign prostatic hypertrophy without outflow obstruction; Translations: [Benign prostatic hyperplasia without lower urinary tract symptoms] Onset: 2 Chronic Miscellaneous mental health disorders (1 source) Primary insomnia; Translations: [Primary insomnia] Onset: 3 03-11-2023 Chronic Mood disorders (1 source) Major depressive disorder, single episode, unspecified; Translations: [MARITZA DEPRESS D/O SINGLE EPIS UNS] Onset: 2 Chronic Mood disorders (1 source) Mood disorders; Translations: [DEPRESSION UNSPECIFIED] Onset: 3 Osteoarthritis (2 sources) Unspecified osteoarthritis, unspecified site; Translations: [Arthritis of right acromioclavicular joint] Onset: 8 06-21-2023 Chronic Other aftercare (1 source) 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; Translations: [FCI 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 ASPIRIN] Onset: 3 Episodic Other aftercare (1 source) Other nursing home (current) drug therapy; Translations: [OTH [facility] CURRENT [...] Episodic Other male genital disorders (1 source) Secondary erectile dysfunction; Translations: [Male erectile dysfunction, unspecified] Onset: 3 06-24-2023 Chronic Other male genital disorders (1 source) Hydrocele [...] Chronic Other nervous system disorders (1 source) Carpal tunnel syndrome of right wrist; Translations: [Carpal tunnel syndrome, right upper limb] Onset: 8 06-21-2023 Chronic Other nervous system disorders (1 source) Lesion of ulnar nerve, right upper limb; Translations: [Lesion of ulnar nerve] Onset: 3 06-21-2023 Chronic Other nervous system disorders (1 source) Chronic pain; Translations: [Other chronic pain] Onset: 8 06-21-2023 Chronic Other nervous system disorders (1 source) Ulnar nerve entrapment; Translations: [Lesion of ulnar nerve, unspecified upper limb] Onset: 3 06-21-2023 Chronic Residual codes; unclassified (1 source) Sleep apnea, unspecified; Translations: [SLEEP APNEA UNSPECIFIED] Onset: 3 Chronic Residual codes; unclassified (1 source) Daytime somnolence; Translations: [Other hypersomnia] Onset: 3 03-11-2023 Chronic Residual codes; unclassified (1 source) Obstructive sleep apnea syndrome; Translations: [Obstructive sleep apnea (adult) (pediatric)] Onset: 3 06-21-2023 Chronic Spondylosis; intervertebral disc disorders; other back problems (4 sources) Cervical disc disorder; Translations: [Cervical disc disorder, unspecified, unspecified cervical region] Onset: 3 06-21-2023 Chronic Superficial injury; contusion (2 sources) Contusion of right forearm, initial encounter; Translations: [Contusion of other part of head, initial encounter] Onset: 3 Episodic Unclassified (1 source) CONTACT W/AND (SUSP) EXPOS COVID-19; Translations: [CONTACT W/AND (SUSP) EXPOS COVID-19] Onset: 2 Past or Other Problems Problem Classification Problem Date Documented Date Episodic/Chronic Coma; stupor; and brain damage (1 source) Clouded consciousness; Translations: [Stupor] Onset: 03-03-2012 06-21-2023 Episodic E Codes: Natural/environment (1 source) Exposure to other specified factors, initial encounter; Translations: [EXPOSURE OTHER SPEC FACTORS INITIAL] Onset: 04-27-2022 Episodic Gastritis and duodenitis (1 source) Gastritis; Translations: [Gastritis, unspecified, without bleeding] Onset: 05-09-2013 06-21-2023 Episodic Heart valve disorders (1 source) Systolic murmur; Translations: [Cardiac murmur, unspecified] Onset: 06-24-2023 06-24-2023 Episodic Immunizations and screening for infectious disease (1 source) Encounter for immunization; Translations: [ENCOUNTER FOR IMMUNIZATION] Onset: 04-27-2022 Episodic Inflammatory conditions of male genital organs (4 sources) Inflammatory disorders of scrotum; Translations: [INFLAMMATORY DISORDERS OF SCROTUM] Onset: 01-04-2022 Episodic Malaise and fatigue (1 source) Fatigue; Translations: [Other fatigue] Onset: 03-03-2012 06-21-2023 Episodic Noninfectious gastroenteritis (1 source) Gastroenteritis; Translations: [Noninfective gastroenteritis and colitis, unspecified] Onset: 04-10-2015 06-21-2023 Episodic Nonspecific chest pain (2 sources) Chest discomfort; Translations: [Other chest pain] Onset: 11-30-2011 06-21-2023 Episodic Open wounds of extremities (4 sources) Puncture wound without foreign body, left foot, initial encounter; Translations: [PUNCT WOUND W/O FB LT FOOT INITIAL] Onset: 03-26-2022 Episodic Other circulatory disease (1 source) Capillary hemangioma; Translations: [Nevus, non-neoplastic] Onset: 05-28-2008 06-21-2023 Episodic Other connective tissue disease (1 source) Spasm of cervical paraspinous muscle; Translations: [Other muscle spasm] Onset: 03-11-2023 03-11-2023 Episodic Other connective tissue disease (1 source) Bursitis; Translations: [Bursopathy, unspecified] Onset: 02-27-2011 06-21-2023 Episodic Other connective tissue disease (1 source) Foot pain; Translations: [Pain in unspecified foot] Onset: 10-07-2012 06-21-2023 Episodic Other connective tissue disease (1 source) Muscle pain; Translations: [Myalgia, unspecified site] Onset: 12-02-2012 06-21-2023 Episodic Other connective tissue disease (1 source) Impingement syndrome of shoulder region; Translations: [Impingement syndrome of unspecified shoulder] Onset: 01-25-2003 06-21-2023 Episodic Other connective tissue disease (1 source) Lateral epicondylitis; Translations: [Lateral epicondylitis, unspecified elbow] Onset: 06-24-2023 06-24-2023 Episodic Other connective tissue disease (1 source) Other symptoms and signs involving the musculoskeletal system; Translations: [Other musculoskeletal symptoms referable to limbs] Onset: 12-29-2023 12-29-2023 Episodic Other lower respiratory disease (1 source) Dyspnea; Translations: [Dyspnea, unspecified] Onset: 11-30-2011 06-21-2023 Episodic Other nervous system disorders (2 sources) Numbness of upper limb; Translations: [Anesthesia of skin] Onset: 12-29-2023 08-25-2023 Episodic Other non-traumatic joint disorders (1 source) Ankle edema; Translations: [Effusion, unspecified ankle] Onset: 05-15-2014 06-21-2023 Episodic Other non-traumatic joint disorders (1 source) Joint pain; Translations: [Pain in unspecified joint] Onset: 09-03-2009 06-21-2023 Episodic Other screening for suspected conditions (not mental disorders or infectious disease) (8 sources) Encounter for screening for malignant neoplasm of prostate; Translations: [Elevated prostate specific antigen [PSA]] Onset: 03-13-2022 Episodic Other skin disorders (1 source) Excessive sweating; Translations: [Generalized hyperhidrosis] Onset: 12-18-2015 06-21-2023 Episodic Other skin disorders (1 source) Senile hyperkeratosis; Translations: [Actinic keratosis] Onset: 03-28-2015 06-21-2023 Episodic Other skin disorders (1 source) Hyperhidrosis; Translations: [Generalized hyperhidrosis] Onset: 06-24-2023 06-24-2023 Episodic Other upper respiratory infections (1 source) Upper respiratory infection; Translations: [Acute upper respiratory infection, unspecified] Onset: 12-05-2010 06-21-2023 Episodic Skin and subcutaneous tissue infections (1 source) Cellulitis; Translations: [Cellulitis, unspecified] Onset: 03-31-2013 06-21-2023 Episodic Spondylosis; intervertebral disc disorders; other back problems (4 sources) Cervical disc prolapse with radiculopathy; Translations: [Cervical disc disorder with radiculopathy, unspecified cervical region] Onset: 10-11-2018 08-25-2023 Episodic Urinary tract infections (1 source) Urinary tract infectious disease; Translations: [Urinary tract infection, site not specified] Onset: 06-28-2014 06-21-2023 Episodic Results Test Name Value Interpretation Reference Range Facility [facility] 01-03-2024 L Specimen: [id number] Received: 01/03/24 Status: GIOVANNI Jacinto Num: [id number] Spec Type: Surgical Subm Dr: Trey Vallejo DPM, MS Tissues: A Bone Fragments - Pathologic Fracture (PROXIMAL PHALANX RIGHT HALLU) Procedures: HE/2, Gross/Micro L5, Decalcification Age/ Patient Sex Location Account Attending Physician Matty Garces 53/M LABELL [id number] Trey Vallejo DPM, MS SPEC NUM: [id number] RECD: 01/03/24 STATUS: GIOVANNI JACINTO NUM: [id number] SOFY: 01/03/[address]: Trey Vallejo DPM, MS ENTERED: 01/03/[address] [facility] [address]: Toño,Lab SPEC TYPE: Surgical DEPT: SEEMA SUAZO ORDERED: [...] Sectioning reveals unremarkable yellow, spongy bone matrix. Collection Systems Administrator sections are submitted in A1 following decal. Clinical history: Non-pressure chronic ulcer . Right hallux IPJ arthroplasty with wound debridement and graft application TW Specimen: [id number] Received: 01/03/24 Status: GIOVANNI Ophelia Num: [id number] Spec Type: Surgical Subm Dr: Trey Vallejo,CHINO, MS Tissues: A Bone Fragments - Pathologic Fracture (PROXIMAL PHALANX RIGHT HALLU) Procedures: HE/Dilan, Gross/Micro L5, Decalcification Patient: Matty Garces [id number] (Continued) Specimen: [id number] Received: 01/03/24 (Continued) Signed (signature on file) Viral Rae MD 01/06/24 1838 Specimen: [id number] Received: 01/03/24 Status: GIOVANNI Ophelia Num: [id number] Spec Type: Surgical Subm Dr: Trey Vallejo,[place], MS Tissues: A Bone Fragments - Pathologic Fracture (PROXIMAL PHALANX RIGHT HALLU) Procedures: HE/2, Gross/Micro L5, Decalcification Patient: Matty Garces [id number] (Continued) Specimen: [id number] Received: 01/03/24 (Continued) CPT Codes 88964 Specimen: [id number] Received: 01/03/24 Status: GIOVANNI Jacinto Num: [id number] Spec Type: Surgical Subm Dr: Trey Vallejo,DPJose Eduardo, MS Tissues: A Bone Fragments - Pathologic Fracture (PROXIMAL PHALANX RIGHT HALLU) Procedures: HE/2, Gross/Micro L5, Decalcification Patient: Matty Garces [id number] (Continued) Signed (signature on file) Viral Rae MD 01/06/24 [id number] Normal [facility] CT CSPINE WO CONon CT [...] ANGEL SAID Date: 2022-12-06 06:37 Normal [facility] CT FACIAL BONES WO CONon [...] ANGEL SAID Date: 2022-12-06 06:41 Normal [facility] CT HEAD WO CONon 12-06-2022 [...] ANGEL JORDAN Date: 2022-12-06 06:39 Normal [facility] XR ELBOW RT MIN 3 VIEWSon XR ELBOW RT MIN 3 VIEWS Exam: Radiographs: XR ELBOW RT MIN 3 VIEWS Reason for exam: Elbow pain Comparison: None IMPRESSION: Right elbow degenerative changes. Olecranon spur. Remainder of the right elbow is unremarkable. Electronically authenticated by: MICHAEL CASANOVA Date: 2022-12-06 07:22 Normal [facility] XR FOREARM RT 2Von 3 XR FOREARM RT 2V Exam: Radiographs: XR FOREARM RT 2V Reason for exam: Forearm pain Comparison: None IMPRESSION: Mild degenerative changes in the right elbow and wrist. Right forearm is otherwise unremarkable. Electronically authenticated by: MICHAEL CASANOVA Date: 2022-12-06 08:07 Normal [facility] PSA, FREE AND TOTAL RATIOon 12-03-2022 % Free PSA 9.0 % Normal [facility] [...] men. Performed By: #### P SAFREE #### [facility] [address] [address] [address] Shabnam Rae Prostate specific Ag [Mass/Vol] 5.9 ng/mL Critically high 0.0-4.0 [facility] Comment on above: Result Comment: Tanja BRANTLEY methodology. . According to the [place] Citizen [...] disease. Performed By: #### P SAFREE #### [facility] [address] [place] [address] Dr. Shabnam Rae PSA, Free 0.53 ng/mL Normal N/A [facility] Comment on above: Result Comment: Tanja ayala ECLIA methodology. Performed By: #### P SAFREE #### [facility] [address] [place] [address] Dr. Shabnam Rae INSULINon 12-02-2022 Insulin 20.2 uIU/mL Normal 2.6-24.9 [facility] Comment on above: Performed By: #### P SASC #### [facility] [address] [place] [address] Dr. Shabnam Rae TESTOSTERONE, TOTALon 2022 Testosterone [Mass/Vol] 256 ng/dL Critically low [phone] [facility] Comment on above: Result Comment: Adul t male reference interval is based on a population of healthy nonobese males (BMI <30) between 19 and 39 years old. Dima, et.al. JCEM 2017,102;0459-3564. PMID: [id number]. Performed By: #### P SASC #### [facility] [address] [place] [address] Dr. Shabnam Rae CBC AUTO DIFFon 12-01-2022 BASO # 0.1 103/ul Normal 0.0-0.1 [facility] Comment on above: Performed By: #### P SASC #### [facility] [address] [place] [address] Dr. Shabnam Rae Basophils/100 WBC (Bld) 1.0 % Normal 0.2-2.0 [facility] Comment on above: Performed By: #### P SASC #### [facility] [address] [place] [address] Dr. Shabnam Rae EO # 0.1 103/ul Normal 0.0-0.7 [facility] Comment on above: Performed By: #### P SASC #### [facility] [address] [address] [address] Shabnam Rae Eosinophils/100 WBC (Bld) 1.8 % Normal 0.9-7.0 [facility] Comment on above: Performed By: #### P SASC #### [facility] [address] [place] [address] Dr. Shabnam Rae Erythrocyte distribution width (RBC) [Ratio] 14.8 % Normal 11.0-15.0 [facility] Comment on above: Performed By: #### P SASC #### [facility] [address] [place] [address] Dr. Shabnam Rae Hematocrit (Bld) [Volume fraction] 49.9 % Normal 42.0-54.0 [facility] Comment on above: Performed By: #### P SASC #### [facility] [address] [place] [address] Dr. Shabnam Rae Hemoglobin (Bld) [Mass/Vol] 16.0 g/dL Normal 14.0-18.0 [facility] Comment on above: Performed By: #### P SASC #### [facility] [address] [place] [address] Dr. Shabnam Rae IG # 0.04 10e3/ul Critically high 0.00-0.03 [facility] Comment on above: Performed By: #### P SASC #### [facility] [address] [place] [address] Dr. Shabnam Rae IG % 0.6 % Critically high 0.0-0.5 [facility] Comment on above: Performed By: #### P SASC #### [facility] [address] [place] [address] Dr. Shabnam Rae LYMPH # 1.0 103/ul Critically low 1.2-3.8 [facility] Comment on above: Performed By: #### P SASC #### [facility] [address] [place] [address] Dr. Shabnam Rae Lymphocytes/100 WBC (Bld) 16.2 % Critically low 20.5-60.0 [facility] Comment on above: Performed By: #### P SASC #### [facility] [address] [address] [address] Shabnam Rae MANUAL DIFF REQ NO Normal [facility] Comment on above: Performed By: #### P SASC #### [facility] [address] [place] [address] Dr. Shabnam Rae MCH (RBC) [Entitic mass] 27.7 pg Normal 25.9-34.0 [facility] Comment on above: Performed By: #### P SASC #### [facility] [address] [place] [address] Dr. Shabnam Rae MCHC (RBC) [Mass/Vol] 32.1 g/dL Normal 29.9-35.2 [facility] Comment on above: Performed By: #### P SASC #### [facility] [address] [place] [address] Dr. Shabnam Rae MCV (RBC) [Entitic vol] 86.3 fL Normal 80.0-94.0 [facility] Comment on above: Performed By: #### P SASC #### [facility] [address] [place] [address] Dr. Shabnam Rae MONO # 0.5 103/ul Normal 0.3-0.8 [facility] Comment on above: Performed By: #### P SASC #### [facility] [address] [place] [address] Dr. Shabnam Rae Monocytes/100 WBC (Bld) 7.6 % Normal 1.7-12.0 [facility] Comment on above: Performed By: #### P SASC #### [facility] [address] [place] [address] Dr. Shabnam Rae NEUT # 4.6 103/ul Normal 1.4-6.5 [facility] Comment on above: Performed By: #### P SASC #### [facility] [address] [place] [address] Dr. Shabnam Rae Neutrophils/100 WBC (Bld) 72.8 % Normal 43.0-75.0 [facility] Comment on above: Performed By: #### P SASC #### [facility] [address] [address] [address] Shabnam Rae Platelet mean volume (Bld) [Entitic vol] 9.8 fL Normal 9.5-13.5 [facility] Comment on above: Performed By: #### P SASC #### [facility] [address] [address] [address] Shabnam Rae PLT 203 103/ul Normal 150-450 [facility] Comment on above: Performed By: #### P SASC #### [facility] [address] [address] [address] Shabnam Rae RBC 5.78 106/ul Normal 4.70-6.10 [facility] Comment on above: Performed By: #### P SASC #### [facility] [address] [place] [address] Dr. Shabnam Rae WBC 6.3 103/ul Normal 4.0-11.0 [facility] Comment on above: Performed By: #### P SASC #### [facility] [address] [place] [address] Dr. Shabnam Rae FREE THYROXINE INDEX T7on FTI 2.05 Normal 1.30-4.50 [facility] Comment on above: Performed By: #### T SH, CMP, LIPID, T7, URIC #### [facility] [address] [address] [address] Shabnam Rae T3U 33.0 % Normal 33.0-40.0 [facility] Comment on above: Performed By: #### T SH, CMP, LIPID, T7, URIC #### [facility] [address] [address] [address] Shabnam Rae T4 [Mass/Vol] 6.20 ug/dL Normal 4.50-12.10 [facility] Comment on above: Performed By: #### T SH, CMP, LIPID, T7, URIC #### [facility] [address] [place] [address] Dr. Shabnam Rae GLYCOHEMOGLOBIN A1Con 2022 ADA RECOMMENDATION SEE BELOW Normal [facility] Comment on above: Result Comment: ADA RECOMMENDED LIMIT 4.0 - 6.0 ADA THERAPEUTIC TARGET < 7.0 ACTION SUGGESTED > 7.0 Performed By: #### P SASC #### [facility] [address] [address] [address] Shabnam Rae Glucose [Mass/Vol] 114 mg/dL Normal [facility] Comment on above: Performed By: #### P SASC #### [facility] [address] [address] [address] Shabnam Rae HbA1c (Bld) [Mass fraction] 5.6 % Normal 4.5-6.2 [facility] Comment on above: Performed By: #### P SASC #### [facility] [address] [address] [address] Shabnam Rae LIPID PROFILEon 12-01-2022 CHOL-HDL RATIO NORM SEE BELOW Normal [facility] Comment on above: Result Comment: 3.3 - 4.4 LOW RISK 4.4 - 7.1 AVERAGE RISK 7.1 - 11.0 MODERATE RISK >11.0 HIGH RISK Performed By: #### T SH, CMP, LIPID, T7, URIC #### [facility] [address] [address] [address] Shabnam Rae Cholesterol [Mass/Vol] 176 mg/dL Normal <=200 [facility] Comment on above: Performed By: #### T SH, CMP, LIPID, T7, URIC #### [facility] [address] [address] [address] Shabnam Rae Cholesterol in HDL [Mass/Vol] 48 mg/dL Normal 40-60 [facility] Comment on above: Performed By: #### T SH, CMP, LIPID, T7, URIC #### [facility] [address] [address] [address] Shabnam Rae Cholesterol in LDL [Mass/Vol] 108.2 mg/dL Normal [facility] Comment on above: Performed By: #### T SH, CMP, LIPID, T7, URIC #### [facility] [address] [address] [address] Shabnam Rae Cholesterol.total/Ch olesterol in HDL [Mass ratio] 3.7 {ratio} Normal [facility] Comment on above: Performed By: #### T SH, CMP, LIPID, T7, URIC #### [facility] [address] [address] [address] Shabnam Rae HDL NORMAL > or = 60 mg/dl - LOW CARDIOVASCULAR RISK <40 mg/dl - HIGH CARDIOVASCULAR RISK Normal [facility] Comment on above: Performed By: #### T SH, CMP, LIPID, T7, URIC #### [facility] [address] [address] [address] Shabnam Rae LDL CALC NORMAL SEE BELOW Normal [facility] Comment on above: Result Comment: <100 mg/dl OPTIMAL 100 - 129 mg/dl NEAR OR ABOVE OPTIMAL 130 - 159 mg/dl BORDERLINE HIGH 160 - 189 mg/dl HIGH >190 mg/dl VERY HIGH Performed By: #### T SH, CMP, LIPID, T7, URIC #### [facility] [address] [address] [address] Shabnam Rae Triglyceride [Mass/Vol] 99 mg/dL Normal <=150 [facility] Comment on above: Performed By: #### T SH, CMP, LIPID, T7, URIC #### [facility] [address] [address] [address] Shabnam Rae VLDL CALC 19.8 mg/dL Normal [facility] Comment on above: Performed By: #### T SH, CMP, LIPID, T7, URIC #### [facility] [address] [address] [address] Shabnam Rae PROF 14(COMP METB)on 023 Albumin [Mass/Vol] 4.1 g/dL Normal 3.4-5.0 [facility] Comment on above: Performed By: #### T SH, CMP, LIPID, T7, URIC #### [facility] [address] [place] [address] Dr. Shabnam Rae Albumin/Globulin [Mass ratio] 1.1 {ratio} Normal [facility] Comment on above: Performed By: #### T SH, CMP, LIPID, T7, URIC #### [facility] [address] [place] [address] Dr. Shabnam Rae ALP [Catalytic activity/Vol] 101 U/L Normal 46-116 [facility] Comment on above: Performed By: #### T SH, CMP, LIPID, T7, URIC #### [facility] [address] [place] [address] Dr. Shabnam Rae ALT [Catalytic activity/Vol] 26 U/L Normal 16-63 [facility] Comment on above: Performed By: #### T SH, CMP, LIPID, T7, URIC #### [facility] [address] [place] [address] Dr. Shabnam Rae Anion gap [Moles/Vol] 10.1 mmol/L Normal [facility] Comment on above: Performed By: #### T SH, CMP, LIPID, T7, URIC #### [facility] [address] [place] [address] Dr. Shabnam Rae AST [Catalytic activity/Vol] 19 U/L Normal 15-37 [facility] Comment on above: Performed By: #### T SH, CMP, LIPID, T7, URIC #### [facility] [address] [place] [address] Dr. Shabnam Rae Bilirubin [Mass/Vol] 0.8 mg/dL Normal 0.2-1.0 [facility] Comment on above: Performed By: #### T SH, CMP, LIPID, T7, URIC #### [facility] [address] [place] [address] Dr. Shabnam Rae Calcium [Mass/Vol] 9.5 mg/dL Normal 8.5-10.1 [facility] Comment on above: Performed By: #### T SH, CMP, LIPID, T7, URIC #### [facility] [address] [place] [address] Dr. Shabnam Rae Chloride [Moles/Vol] 102 mmol/L Normal 98-107 [facility] Comment on above: Performed By: #### T SH, CMP, LIPID, T7, URIC #### [facility] [address] [place] [address] Dr. Shabnam Rae CO2 [Moles/Vol] 32.4 mmol/L Critically high 21.0-32.0 [facility] Comment on above: Performed By: #### T SH, CMP, LIPID, T7, URIC #### [facility] [address] [place] [address] Dr. Shabnam Rae Creatinine [Mass/Vol] 1.00 mg/dL Normal 0.70-1.30 [facility] Comment on above: Performed By: #### T SH, CMP, LIPID, T7, URIC #### [facility] [address] [place] [address] Dr. Shabnam Rae EGFR-AF INDONESIAN >60 Normal >=[address] [facility] Comment on above: Performed By: #### T SH, CMP, LIPID, T7, URIC #### [facility] [address] [place] [address] Dr. Shabnam Rae EGFR-NON AF INDONESIAN >60 Normal >=60 [facility] Comment on above: Performed By: #### T SH, CMP, LIPID, T7, URIC #### [facility] [address] [place] [address] Dr. Shabnam Rae Globulin (S) [Mass/Vol] 3.8 g/dL Normal [facility] Comment on above: Performed By: #### T SH, CMP, LIPID, T7, URIC #### [facility] [address] [place] [address] Dr. Shabnam Rae Glucose [Mass/Vol] 94 mg/dL Normal 74-106 [facility] Comment on above: Performed By: #### T SH, CMP, LIPID, T7, URIC #### [facility] [address] [place] [address] Dr. Shabnam Rae Potassium [Moles/Vol] 3.5 mmol/L Normal 3.5-5.1 [facility] Comment on above: Performed By: #### T SH, CMP, LIPID, T7, URIC #### [facility] [address] [place] [address] Dr. Shabnam Rae Protein [Mass/Vol] 7.9 g/dL Normal 6.4-8.2 [facility] Comment on above: Performed By: #### T SH, CMP, LIPID, T7, URIC #### [facility] [address] [address] [address] Shabnam Rae Sodium [Moles/Vol] 141 mmol/L Normal 136-145 [facility] Comment on above: Performed By: #### T SH, CMP, LIPID, T7, URIC #### [facility] [address] [address] [address] Shabnam Rae Urea nitrogen [Mass/Vol] 15.0 mg/dL Normal 7.0-18.0 [facility] Comment on above: Performed By: #### T SH, CMP, LIPID, T7, URIC #### [facility] [address] [address] [address] Shabnam Rae Urea nitrogen/Creatinine [Mass ratio] 15.0 mg/mg Normal [facility] Comment on above: Performed By: #### T SH, CMP, LIPID, T7, URIC #### [facility] [address] [address] [address] Shabnam Rae TSHon 12-01-2022 TSH 1.504 uIU/mL Normal 0.358-3.740 [facility] Comment on above: Performed By: #### T SH, CMP, LIPID, T7, URIC #### [facility] [address] [address] [address] Shabnam Rae URIC ACID SERUMon 12-01-2022 Urate [Mass/Vol] 6.9 mg/dL Normal 3.5-7.[address] [facility] Comment on above: Performed By: #### T SH, CMP, LIPID, T7, URIC #### [facility] [address] [place] [address] Dr. Shabnam Rae TESTOSTERONE, TOTALon 2021 Testosterone [Mass/Vol] 244 ng/dL Critically low 264-916 [facility] Comment on above: Result Comment: Adul t male reference interval is based on a population of healthy nonobese males (BMI <30) between 19 and 39 years old. adia Ch.al. JCEM 2017,102;1247-7348. PMID: [id number]. Performed By: #### P SAFREE #### [facility] [address], [place] [address] Dr. Shabnam Rae TESTOSTERONE, FREE,DIRECT, T OTALon 03-16-2022 Free Testosterone(Direct) 2.1 pg/mL Critically low 7.2-24.0 [facility] Comment on above: Result Comment: Perf ormed at: BN Performed By: #### C VDTBH #### [facility] [address], [place] [address] Dr. Shabnam Rae Testosterone [Mass/Vol] 252 ng/dL Critically low 264-916 [facility] Comment on above: Result Comment: Adul t male reference interval is based on a population of healthy nonobese males (BMI <30) between 19 and 39 years old. adia hC.al. JCEM 2017,102;4746-3859. PMID: [id number]. Performed at: CB Performed By: #### C VDTBH #### [facility] [address], [place] [address] Dr. Shabnam Rae Formson 02-26-2022 Forms [id number] 7#1.00CD:[address] [facility] Screenson 02-26-2022 Screens [id number] 7#1.00CD:[address] [facility] Screens [id number] #1.00CD:[address] [facility] Urology Office/Clinic Noteon 02-26-2022 Urology Office/Clinic [...] qualifying data (more content not included)... Normal [facility] Comment on above: Result Comment: Elec tronically Signed By: Viola Grullon MD\.br\Date and Time Signed: 02/26/22 00:20 EDT\.br\Electronically Co-Signed By: Helen Leung\.br\Date and Time Co-Signed: 02/25/22 11:16 EDT Ambulatory Visit Summaryon 0 02-25-2022 Ambulatory Visit Summary MATTY GARCES :1970 Visit Date:02/25/2022 Ambulatory Visit Instructions Your Diagnosis Hydrocele Varicocele BPH without urinary obstruction Tests Performed Urnls Dip Stick Auto w/o Microscopy POC 46085 Your Care Team Attending Physician - Viola [...] Urnls Dip Stick Auto w/o Microscopy POC 95148 (02/25/2022) Bilirubin Urine Dipstick - Negative Blood Urine Dipstick - Negative Glucose Urine Dipstick - Negative Ketones Urine Dipstick - Negative Leukocytes Urine Dipstick - Negative Nitrite Urine Dipstick - Negative Protein Urine Dipstick - Negative Specific [place] Urine Dipstick - >=1.030 Urine Appearance Urine [...] the hydrocele for any changes. ? Take qrqp-wau-jtknyks and prescription medicines only as told by [...] intended t (more content not included)... Normal [facility] Patient Educationon 02-26-20 Patient Education Urology [...] the hydrocele for any changes. ? Take hbdc-ehy-ewzydrk and prescription medicines only as told by [...] 02/17/2011 Document Revised: 09/10/2018 Document Reviewed: 09/10/2018 [employer] Patient Education ? 2019 [employer] Normal [facility] ED Note-Physicianon 02-04-20 ED Note-Physician [id number] 62#1.00CD:127 [facility] RAD - Ultrasound Reporton RAD - Ultrasound Report [id number] #1.00CD:127 [facility] RAD - CT Reporton 02-02-2022 RAD - CT Report [id number] 55#1.00CD:127 [facility] RAD - CT Report [id number] 75#1.00CD:127 [facility] CBC AUTO DIFFon 01-05-2022 BASO # 0.0 103/ul Normal 0.0-0.1 [facility] Comment on above: Performed By: #### P SAFREE #### [facility] [address] [place] [address] Dr. Shabnam Rae Basophils/100 WBC (Bld) 0.6 % Normal 0.2-2.0 [facility] Comment on above: Performed By: #### P SAFREE #### [facility] [address] [address] [address] Shabnam Rae EO # 0.1 103/ul Normal 0.0-0.7 [facility] Comment on above: Performed By: #### P SAFREE #### [facility] [address] [place] [address] Dr. Shabnam Rae Eosinophils/100 WBC (Bld) 2.1 % Normal 0.9-7.0 [facility] Comment on above: Performed By: #### P SAFREE #### [facility] [address] [address] [address] Shabnam Rae Erythrocyte distribution width (RBC) [Ratio] 13.1 % Normal 11.0-15.0 [facility] Comment on above: Performed By: #### P SAFREE #### [facility] [address] [address] [address] Shabnam Rae Hematocrit (Bld) [Volume fraction] 43.1 % Normal 42.0-54.0 [facility] Comment on above: Performed By: #### P SAFREE #### [facility] [address] [address] [address] Shabnam Rae Hemoglobin (Bld) [Mass/Vol] 13.7 g/dL Critically low 14.0-18.0 [facility] Comment on above: Performed By: #### P SAFREE #### [facility] [address] [place] [address] Dr. Shabnam Rae IG # 0.04 10e3/ul Critically high 0.00-0.03 [facility] Comment on above: Performed By: #### P SAFREE #### [facility] [address] [address] [address] Shabnam Rae IG % 0.6 % Critically high 0.0-0.5 [facility] Comment on above: Performed By: #### P SAFREE #### [facility] [address] [address] [address] Shabnam Rae LYMPH # 0.9 103/ul Critically low 1.2-3.8 [facility] Comment on above: Performed By: #### P SAFREE #### [facility] [address] [address] [address] Shabnam Rae Lymphocytes/100 WBC (Bld) 13.1 % Critically low 20.5-60.0 [facility] Comment on above: Performed By: #### P SAFREE #### [facility] [address] [place] [address] Dr. Shabnam Rae MANUAL DIFF REQ NO Normal [facility] Comment on above: Performed By: #### P SAFREE #### [facility] [address] [address] [address] Shabnam Rae MCH (RBC) [Entitic mass] 29.5 pg Normal 25.9-34.0 [facility] Comment on above: Performed By: #### P SAFREE #### [facility] [address] [place] [address] Dr. Shabnam Rae MCHC (RBC) [Mass/Vol] 31.8 g/dL Normal 29.9-35.2 [facility] Comment on above: Performed By: #### P SAFREE #### [facility] [address] [place] [address] Dr. Shabnam Rae MCV (RBC) [Entitic vol] 92.9 fL Normal 80.0-94.0 [facility] Comment on above: Performed By: #### P SAFREE #### [facility] [address] [place] [address] Dr. Shabnam Rae MONO # 0.4 103/ul Normal 0.3-0.8 [facility] Comment on above: Performed By: #### P SAFREE #### [facility] [address] [place] [address] Dr. Shabnam Rae Monocytes/100 WBC (Bld) 5.4 % Normal 1.7-12.0 [facility] Comment on above: Performed By: #### P SAFREE #### [facility] [address] [place] [address] Dr. Shabnam Rae NEUT # 5.2 103/ul Normal 1.4-6.5 [facility] Comment on above: Performed By: #### P SAFREE #### [facility] [address] [place] [address] Dr. Shabnam Rae Neutrophils/100 WBC (Bld) 78.2 % Critically high 43.0-75.0 [facility] Comment on above: Performed By: #### P SAFREE #### [facility] [address] [place] [address] Dr. Shabnam Rae Platelet mean volume (Bld) [Entitic vol] 10.9 fL Normal 9.5-13.5 [facility] Comment on above: Performed By: #### P SAFREE #### [facility] [address] [address] [address] Shabnam Rae PLT 153 103/ul Normal 150-450 [facility] Comment on above: Performed By: #### P SAFREE #### [facility] [address] [address] [address] Shabnam Rae RBC 4.64 106/ul Critically low 4.70-6.10 [facility] Comment on above: Performed By: #### P SAFREE #### [facility] [address] [address] [address] Shabnam Rae WBC 6.6 103/ul Normal 4.0-11.0 [facility] Comment on above: Performed By: #### P SAFREE #### [facility] [facility] [address] [place] [address] Dr. Shabnam Rae CRPon 01-05-2022 CRP 0.9 mg/dL Normal <=1.0 [facility] Comment on above: Performed By: #### P SAFREE #### [facility] [address] [address] [address] Shabnam Rae PROF 14(COMP METB)on 022 Albumin [Mass/Vol] 3.6 g/dL Normal 3.4-5.0 [facility] Comment on above: Performed By: #### P SAFREE #### [facility] [address] [address] [address] Shabnam Rae Albumin/Globulin [Mass ratio] 1.0 {ratio} Normal [facility] Comment on above: Performed By: #### P SAFREE #### [facility] [address] [address] [address] Shabnam Rae ALP [Catalytic activity/Vol] 114 U/L Normal 46-116 [facility] Comment on above: Performed By: #### P SAFREE #### [facility] [address] [address] [address] Shabnam Rae ALT [Catalytic activity/Vol] 26 U/L Normal 16-63 [facility] Comment on above: Performed By: #### P SAFREE #### [facility] [address] [address] [address] Shabnam Rae Anion gap [Moles/Vol] 9.3 mmol/L Normal [facility] Comment on above: Performed By: #### P SAFREE #### [facility] [address] [address] [address] Shabnam Rae AST [Catalytic activity/Vol] 19 U/L Normal 15-37 [facility] Comment on above: Performed By: #### P SAFREE #### [facility] [address] [address] [address] Shabnam Rae Bilirubin [Mass/Vol] 0.5 mg/dL Normal 0.2-1.0 [facility] Comment on above: Performed By: #### P SAFREE #### [facility] [address] [address] [address] Shabnam Rae Calcium [Mass/Vol] 8.9 mg/dL Normal 8.5-10.1 [facility] Comment on above: Performed By: #### P SAFREE #### [facility] [address] [address] [address] Shabnam Rae Chloride [Moles/Vol] 106 mmol/L Normal 98-107 [facility] Comment on above: Performed By: #### P SAFREE #### [facility] [address] [address] [address] Shabnam Rae CO2 [Moles/Vol] 30.7 mmol/L Normal 21.0-32.[address] [facility] Comment on above: Performed By: #### P SAFREE #### [facility] [address] [address] [address] Shabnam Rae Creatinine [Mass/Vol] 1.15 mg/dL Normal 0.70-1.30 [facility] Comment on above: Performed By: #### P SAFREE #### [facility] [address] [address] [address] Shabnam Rae EGFR-AF INDONESIAN >60 Normal >=[address] [facility] Comment on above: Performed By: #### P SAFREE #### [facility] [address] [address] [address] Shabnam Rae EGFR-NON AF INDONESIAN >60 Normal >=60 [facility] Comment on above: Performed By: #### P SAFREE #### [facility] [address] [address] [address] Shabnam Rae Globulin (S) [Mass/Vol] 3.6 g/dL Normal [facility] Comment on above: Performed By: #### P SAFREE #### [facility] [address] [address] [address] Shabnam Rae Glucose [Mass/Vol] 117 mg/dL Critically high 74-106 [facility] Comment on above: Performed By: #### P SAFREE #### [facility] [address] [address] [address] Shabnam Rae Potassium [Moles/Vol] 4.0 mmol/L Normal 3.5-5.1 [facility] Comment on above: Performed By: #### P SAFREE #### [facility] [address] [address] [address] Shabnam Rae Protein [Mass/Vol] 7.2 g/dL Normal 6.1-8.2 [facility] Comment on above: Performed By: #### P SAFREE #### [facility] [address] [place] [address] Dr. Shabnam Rae Sodium [Moles/Vol] 142 mmol/L Normal 136-145 [facility] Comment on above: Performed By: #### P SAFREE #### [facility] [address] [address] [address] Shabnam Rae Urea nitrogen [Mass/Vol] 15.0 mg/dL Normal 7.0-18.0 [facility] Comment on above: Performed By: #### P SAFREE #### [facility] [address] [address] [address] Shabnam Rae Urea nitrogen/Creatinine [Mass ratio] 13.0 mg/mg Normal [facility] Comment on above: Performed By: #### P SAFREE #### [facility] [address] [place] [address] Dr. Shabnam Rae US SCROTUMon 01-05-2022 US [...] ALVINA CAICEDO Date: 2022-01-05 08:48 Normal [facility] CBC AUTO DIFFon 01-04-2022 BASO # 0.1 103/ul Normal 0.0-0.1 [facility] Comment on above: Performed By: #### C BC #### [facility] [address] [place] [address] Dr. Shabnam Rae Basophils/100 WBC (Bld) 0.8 % Normal 0.2-2.0 [facility] Comment on above: Performed By: #### C BC #### [facility] [address] [place] [address] Dr. Shabnam Rae EO # 0.1 103/ul Normal 0.0-0.7 [facility] Comment on above: Performed By: #### C BC #### [facility] [address] [place] [address] Dr. Shabnam Rae Eosinophils/100 WBC (Bld) 1.5 % Normal 0.9-7.0 [facility] Comment on above: Performed By: #### C BC #### [facility] [address] [place] [address] Dr. Shabnam Rae Erythrocyte distribution width (RBC) [Ratio] 12.8 % Normal 11.0-15.0 [facility] Comment on above: Performed By: #### C BC #### [facility] [address] [place] [address] Dr. Shabnam Rae Hematocrit (Bld) [Volume fraction] 40.3 % Critically low 42.0-54.0 [facility] Comment on above: Performed By: #### C BC #### [facility] [address] [place] [address] Dr. Shabnam Rae Hemoglobin (Bld) [Mass/Vol] 13.4 g/dL Critically low 14.0-18.0 [facility] Comment on above: Performed By: #### C BC #### [facility] [address] [place] [address] Dr. Shabnam Rae IG # 0.03 10e3/ul Normal 0.00-0.03 [facility] Comment on above: Performed By: #### C BC #### [facility] [address] [place] [address] Dr. Shabnam Rae IG % 0.5 % Normal 0.0-0.5 [facility] Comment on above: Performed By: #### C BC #### [facility] [address] [place] [address] Dr. Shabnam Rae LYMPH # 1.0 103/ul Critically low 1.2-3.8 [facility] Comment on above: Performed By: #### C BC #### [facility] [address] [place] [address] Dr. Shabnam Rae Lymphocytes/100 WBC (Bld) 16.4 % Critically low 20.5-60.0 [facility] Comment on above: Performed By: #### C BC #### [facility] [address] [place] [address] Dr. Shabnam Rae MANUAL DIFF REQ NO Normal [facility] Comment on above: Performed By: #### C BC #### [facility] [address] [place] [address] Dr. Shabnam Rae MCH (RBC) [Entitic mass] 29.5 pg Normal 25.9-34.0 [facility] Comment on above: Performed By: #### C BC #### [facility] [address] [place] [address] Dr. Shabnam Rae MCHC (RBC) [Mass/Vol] 33.3 g/dL Normal 29.9-35.2 [facility] Comment on above: Performed By: #### C BC #### [facility] [address] [place] [address] Dr. Shabnam Rae MCV (RBC) [Entitic vol] 88.8 fL Normal 80.0-94.0 [facility] Comment on above: Performed By: #### C BC #### [facility] [address] [place] [address] Dr. Shabnam Rae MONO # 0.6 103/ul Normal 0.3-0.8 [facility] Comment on above: Performed By: #### C BC #### [facility] [address] [place] [address] Dr. Shabnam Rae Monocytes/100 WBC (Bld) 9.6 % Normal 1.7-12.0 [facility] Comment on above: Performed By: #### C BC #### [facility] [address] [place] [address] Dr. Shabnam Rae NEUT # 4.4 103/ul Normal 1.4-6.5 [facility] Comment on above: Performed By: #### C BC #### [facility] [address] [place] [address] Dr. Shabnam Rae Neutrophils/100 WBC (Bld) 71.2 % Normal 43.0-75.0 [facility] Comment on above: Performed By: #### C BC #### [facility] [address], [place] [address] Dr. Shabnam Rae Platelet mean volume (Bld) [Entitic vol] 10.8 fL Normal 9.5-13.5 [facility] Comment on above: Performed By: #### C BC #### [facility] [address], [place] [address] Dr. Shabnam Rae PLT 158 103/ul Normal 150-450 [facility] Comment on above: Performed By: #### C BC #### [facility] [id number] Shabnam Rae RBC 4.54 106/ul Critically low 4.70-6.10 [facility] Comment on above: Performed By: #### C BC #### [facility] [id number] Sahbnam Rae WBC 6.2 103/ul Normal 4.0-11.0 [facility] Comment on above: Performed By: #### C BC #### [facility] [address] [address] [address] ABD/PELV W CONon 01-05-20 CT ABD/PELV W CON CT ABD/PELV W [...] MAYRA BERNAL Date: 2022-01-04 05:19 Normal [facility] CT PELVIS WO CONon CT [...] MANUEL HOUGH Date: 2022-01-04 08:54 Normal [facility] CULTURE URINEon 01-04-2022 CULTURE URINE Culture Observations: No growth Normal [facility] Comment on above: Performed By: #### P SAS #### [facility] [address] [address] [address] Shabnam Rae [facility] 12-13 SARS-CoV-2 (COVID-19) RNA ELIJAH+probe Ql (Unsp spec) Not detected Normal NOT DETECTED [facility] [...] Administration (FDA). This test was developed by [employer], [place], [place]. The performance characteristics of this test were validated by [facility]. The results are not intended to be used as the sole means for clinical diagnosis or patient management decisions. The [facility] is authorized under Clinical Laboratory [...] for this test is supported by the [place] of Health and Human Service's declaration that [...] used). Performed By: #### C VDTB #### [facility] [address] [address] [address] Shabnam Rae ER URINE PROFILEon 2 Bilirubin Ql (U) Negative Normal NEGATIVE [facility] Comment on above: Performed By: #### P SASC #### [facility] [address] [address] [address] Shabnam Rae Clarity (U) CLEAR Normal CLEAR [facility] Comment on above: Performed By: #### P SASC #### [facility] [address] [address] [address] Shabnam Rae Color (U) YELLOW Normal YELLOW [facility] Comment on above: Performed By: #### P SASC #### [facility] [address] [address] [address] Shabnam HERNANDEZ A micrscopic examination will be performed if indicated. Normal [facility] Comment on above: Performed By: #### P SASC #### [facility] [address] [address] [address] Shabnam Rae Glucose Ql (U) Negative Normal NEGATIVE [facility] Comment on above: Performed By: #### P SASC #### [facility] [address] [address] [address] Shabnam Rae Hemoglobin Ql (U) Negative Normal NEGATIVE [facility] Comment on above: Performed By: #### P SASC #### [facility] [address] [address] [address] Shabnam Rae Ketones Ql (U) Negative Normal NEGATIVE [facility] Comment on above: Performed By: #### P SASC #### [facility] [address] [address] [address] Shabnam Rae LEUKOCYTES Negative Normal NEGATIVE [facility] Comment on above: Performed By: #### P SASC #### [facility] [address] [address] [address] Shabnam Rae Nitrite Ql (U) Negative Normal NEGATIVE [facility] Comment on above: Performed By: #### P SASC #### [facility] [address] [address] [address] Shabnam Rae pH (U) 6.5 [pH] Normal 5-9 [facility] Comment on above: Performed By: #### P SASC #### [facility] [address] [place] [address] Dr. Shabnam Rae SPEC GRAVITY 1.010 Normal 1.005-<=1.025 [facility] Comment on above: Performed By: #### P SASC #### [facility] [address] [place] [address] Dr. Shabnam Rae UA PROTEIN Negative Normal NEGATIVE/ TRACE [facility] Comment on above: Performed By: #### P SASC #### [facility] [address] [place] [address] Dr. Shabnam Rae UR MICRO IND NOT INDICATED Normal [facility] Comment on above: Performed By: #### P SASC #### [facility] [address] [place] [address] Dr. Shabnam Rae Urobilinogen Qn (U) 0.2 {Sarai'U}/dL Normal 0.2 - 1. 0 [facility] Comment on above: Performed By: #### P SASC #### [facility] [address] [place] [address] Dr. Shabnam Rae LACTATE/LACTIC ACIDon 2021 Lactate [Moles/Vol] 1.0 mmol/L Normal 0.4-2.0 [facility] Comment on above: Performed By: #### P SASC #### [facility] [address] [place] [address] Dr. Shabnam Rae PROF CHEM 8 (BAS METB)on Anion gap [Moles/Vol] 10.0 mmol/L Normal [facility] Comment on above: Performed By: #### B MP #### [facility] [address] [place] [address] Dr. Shabnam Rae Calcium [Mass/Vol] 8.5 mg/dL Normal 8.5-10.1 [facility] Comment on above: Performed By: #### B MP #### [facility] [address] [place] [address] Dr. Shabnam Rae Chloride [Moles/Vol] 103 mmol/L Normal 98-107 [facility] Comment on above: Performed By: #### B MP #### [facility] [address] [address] [address] Shabnam Rae CO2 [Moles/Vol] 29.2 mmol/L Normal 21.0-32.[address] [facility] Comment on above: Performed By: #### B MP #### [facility] [address] [address] [address] Shabnam Rae Creatinine [Mass/Vol] 1.25 mg/dL Normal 0.70-1.30 [facility] Comment on above: Performed By: #### B MP #### [facility] [address] [address] [address] Shabnam Rae EGFR-AF INDONESIAN >60 Normal >=[address] [facility] Comment on above: Performed By: #### B MP #### [facility] [address] [address] [address] Shabnam Rae EGFR-NON AF INDONESIAN >60 Normal >=60 [facility] Comment on above: Performed By: #### B MP #### [facility] [address] [address] [address] Shabnam Rae Glucose [Mass/Vol] 132 mg/dL Critically high 74-106 [facility] Comment on above: Performed By: #### B MP #### [facility] [address] [address] [address] Shabnam Rae Potassium [Moles/Vol] 3.2 mmol/L Critically low 3.5-5.1 [facility] Comment on above: Performed By: #### B MP #### [facility] [address] [address] [address] Shabnam Rae Sodium [Moles/Vol] 139 mmol/L Normal 136-145 [facility] Comment on above: Performed By: #### B MP #### [facility] [address] [address] [address] Shabnam Rae Urea nitrogen [Mass/Vol] 19.0 mg/dL Critically high 7.0-18.0 [facility] Comment on above: Performed By: #### B MP #### [facility] [address], [place] [address] Dr[address] Shabnam Rae Urea nitrogen/Creatinine [Mass ratio] 15.2 mg/mg Normal [facility] Comment on above: Performed By: #### B MP #### [facility] [address] [place], [place] [address] Dr. Shabnam Rae CERVICAL SPINE 2 OR 3 [facility] 07-06-2019 CERVICAL SPINE 2 OR 3 [facility] Department of Radiology [address] [place] [id number] Patient Name: MATTY GARCES : 1970 [...] to be protruding anteriorly on CT May is not clearly visualized on lateral view due to overlying soft tissue. * Alignment appears appropriate. Approved by:Radha Ballard on 07/06/2019 11:31 AM EDT. I, Bernice Hoyt, have reviewed the images and report and concur with these findings. Electronically signed by:Bernice Hoyt. Transcribed by: [email or web address], User Resident: RADHA CHIN Electronically Signed by: BERNICE HOYT @ 07/06/2019 08:52 PM I personally read this/these film(s) with this resident Normal [facility] Comment on above: Order Comment: , STA T READ , STAT READ , , , Ordering Provider - LUCIANO VIEIRA MD , CERVICAL SPINE 2 OR 3 [facility] 04-06-2019 CERVICAL SPINE 2 OR 3 [facility] Department of Radiology [address] [place] [phone] Patient Name: MATTY GARCES : 1970 [...] study. Electronically signed by:Bernice Hoyt. Transcribed by: [email or web address], User Resident: Electronically Signed by: BERNICE HOYT @ 04/06/2019 04:40 PM Normal [facility] Comment on above: Order Comment: AP/LA T, ODONTOID PLEASE DO SWIMMER'S VIEW FOLLOW UP HARDWARE AND ALIGNMENT, S/P ACDF, RECENT FALLS CERVICAL SPINE 2 OR 3 Son 02-17-2019 CERVICAL SPINE 2 OR 3 [facility] Department of Radiology [address] [place] [id number] Patient Name: MATTY GARCES : 1970 [...] ALIGNMENT Exam: CERVICAL SPINE 2 OR 3 [facility] CERVICAL SPINE 2 OR 3 S 02/17/2019 9:02 AM EDT SIGNS AND SYMPTOMS: [...] findings. Electronically signed by:Bella King. Transcribed by: [email or web address], User Resident: EMILE TINAJERO Electronically Signed by: BELLA KING @ 02/20/2019 11:53 AM I personally read this/these film(s) with this resident Normal [facility] Comment on above: Order Comment: C-SPI NE 2 OR 3 VIEW POSTOP, EVALUATION HARDWARE AN ALIGNMENT BASIC METABOLIC PANELon 05-2 Calcium [Mass/Vol] 9.2 mg/dL Normal 8.6-10.3 [facility] Comment on above: Order Comment: No: D o not add to previous draw Performed By: #### 5 0103 #### [facility] [address] [facility] [place] [address], [facility] Chloride [Moles/Vol] 101 mmol/L Normal 98-107 [facility] Comment on above: Order Comment: No: D o not add to previous draw Performed By: #### 5 0103 #### [facility] [address] [place] [address], [place] CO2 [Moles/Vol] 26 mmol/L Normal 21-31 [facility] Comment on above: Order Comment: No: D o not add to previous draw Performed By: #### 5 0103 #### [facility] [address] [place] [address], [place] Creatinine [Mass/Vol] 1.02 mg/dL Normal 0.70-1.30 [facility] Comment on above: Order Comment: No: D o not add to previous draw Performed By: #### 5 0103 #### [facility] [address] [place] [address], [place] GFR/1.73 sq M predicted among blacks MDRD (S/P/Bld) [Vol rate/Area] mL/min/{1.73_m2} Normal >60 [facility] Comment on above: Order Comment: No: D o not add to previous draw Performed By: #### 5 0103 #### [facility] [address] [place] [address], [place] GFR/1.73 sq M predicted among non-blacks MDRD (S/P/Bld) [Vol rate/Area] mL/min/{1.73_m2} Normal >60 [facility] Comment on above: Order Comment: No: D o not add to previous draw Performed By: #### 5 0103 #### [facility] [address] [place] [address], [place] Glucose [Mass/Vol] 124 mg/dL High 70-100 [facility] Comment on above: Order Comment: No: D o not add to previous draw Performed By: #### 5 0103 #### [facility] [address] [place] [address], [place] Potassium [Moles/Vol] 3.9 mmol/L Normal 3.5-5.1 [facility] Comment on above: Order Comment: No: D o not add to previous draw Performed By: #### 5 0103 #### [facility] [address] [place] [address], [place] Sodium [Moles/Vol] 137 mmol/L Normal 136-145 [facility] Comment on above: Order Comment: No: D o not add to previous draw Performed By: #### 5 0103 #### [facility] [address] [place] [address], [place] Urea nitrogen [Mass/Vol] 15 mg/dL Normal 7-25 [facility] Comment on above: Order Comment: No: D o not add to previous draw Performed By: #### 5 0103 #### [facility] [address] CBC COMPLETE BLOOD COUNTon 0 - Erythrocyte distribution width (RBC) [Ratio] 13.9 % Normal 11.5-15.0 [facility] Comment on above: Order Comment: No: D o not add to previous draw Performed By: #### 5 0103 #### [facility] [address] [place] [address], [facility] Hematocrit (Bld) [Volume fraction] 50.0 % Normal 39.0-50.0 [facility] Comment on above: Order Comment: No: D o not add to previous draw Performed By: #### 5 3 #### [facility] [address] [place] [address], [facility] Hemoglobin (Bld) [Mass/Vol] 16.0 g/dL Normal 13.0-17.0 [facility] Comment on above: Order Comment: No: D o not add to previous draw Performed By: #### 5 0103 #### [facility] [address] [place] [address], [facility] MCH (RBC) [Entitic mass] 27.5 pg Normal 27.0-33.0 [facility] Comment on above: Order Comment: No: D o not add to previous draw Performed By: #### 5 0103 #### [facility] [address] [place] [address], [facility] MCHC (RBC) [Mass/Vol] 32.0 g/dL Normal 32.0-35.0 The [facility] Comment on above: Order Comment: No: D o not add to previous draw Performed By: #### 5 0103 #### [facility] [address] [place] [id number], [place] MCV (RBC) [Entitic vol] 85.9 fL Normal 82.0-98.0 The [facility] Comment on above: Order Comment: No: D o not add to previous draw Performed By: #### 5 0103 #### [facility] [address] [place] [id number], [facility] Nucleated RBC/100 WBC (Bld) [Ratio] 0 % Normal 0-0 The [facility] Comment on above: Order Comment: No: D o not add to previous draw Performed By: #### 5 0103 #### [facility] [address] [place] [address], [place] PLAT CNT 249 10*3/uL Normal 150-400 The [facility] Comment on above: Order Comment: No: D o not add to previous draw Performed By: #### 5 0103 #### [facility] [address] [place] [address], [facility] RBC (Bld) [#/Vol] 5.82 10*6/uL High 4.20-5.70 The [facility] Comment on above: Order Comment: No: D o not add to previous draw Performed By: #### 5 0103 #### [facility] [address] [place] [address], [place] WBC (Bld) [#/Vol] 15.85 10*3/uL High 4.00-10.60 The [facility] Comment on above: Order Comment: No: D o not add to previous draw Performed By: #### 5 0103 #### [facility] [address] [place] [id number], [facility] Operative Reporton 9 Operative Report MR#: [id number] I [facility] Pt. Name: Matty Garces Room #: [id number] Discharge Date: Birthdate: 1970 OPERATIVE REPORT DATE OF SURGERY: 01/30/2019 SURGEON: Luciano Vieira M.D. 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 POSTOPERATIVE DIAGNOSIS: Failed instrumentation at C6-7 on the right. DINKEY OPERATOR SLATE: ADENIKE Lugo. ANESTHESIA: Jennifer, Edison. PROCEDURES: Redo of redo surgery at C6-7 [...] Vieira M.D. Date Trans: 01/31/2019 02:31 A/sasha [id number] cc: Venus Mendez M.D. [address], [facility] [place] [address] Barnard The [facility] CERVICAL SPINE 2 OR 3 [facility] 01-30-2019 CERVICAL SPINE 2 OR 3 [facility] Department of Radiology [address] [place] [address] Patient Name: MATTY GARCES : 1970 Sex: M Age: Race: White Pt. Location: Patient Status: O Ordered Date: 01/30/2019 7:05:00 AM Completed Date: 01/30/2019 04:12 PM Requesting Provider: LUCIANO VIEIRA Attending Provider: LUCIANO VIEIRA Report Copy To: Signs & Symptoms: C6-7 ACDF History: C6-7 ACDF Comments: C6-7 ACDF Exam: CERVICAL SPINE 2 OR 3 [facility] CERVICAL SPINE 2 OR 3 VWS 01/30/2019 [...] documentation Electronically signed by:Justus Montano. Transcribed by: [email or web address], User Resident: Electronically Signed by: JUSTUS MONTANO @ 01/30/2019 04:18 PM Normal The [facility] Comment on above: Order Comment: C6-7 ACDF POC GLUCOSE LABon 01-30-2019 Glucose [Mass/Vol] 106 mg/dL High 70-100 [facility] Comment on above: Performed By: #### 5 0103 #### [facility] 3000 [facility]. [address] *MRSA/MSSA DNA NASALon 01-23 *MRSA/MSSA DNA NASAL Clinical Report: (D ) Specimen: NASAL SWAB Collected: 01/23/2019 15:02 Status: Final Last Updated: 01/23/2019 20:14 MSSA DNA (Final) Methicillin Susceptible Staphylococcus aureus DNA Detected MRSA DNA (Final) No Methicillin Resistant Staphylococcus aureus DNA Detected Normal The [facility] Comment on above: Performed By: #### 5 0103 #### [facility] 3000 [facility]. [address] APTTon 01-23-2019 aPTT Coag (Bld) [Time] 35.4 s High 25.0-35.0 The [facility] Comment on [...] FOR THIS PURPOSE. Performed By: #### 5 73, 75850 #### [facility] [address] [place] [address], [place] BASIC METABOLIC PANELon 05- Calcium [Mass/Vol] 9.5 mg/dL Normal 8.6-10.3 [facility] Comment on above: Performed By: #### 5 73, 50631 #### [facility] [address] [place] [address], [place] Chloride [Moles/Vol] 101 mmol/L Normal 98-107 The [facility] Comment on above: Performed By: #### 5 7306, 22880 #### [facility] [address] [place] [address], [place] CO2 [Moles/Vol] 29 mmol/L Normal 21-31 [facility] Comment on above: Performed By: #### 5 7306, 41887 #### [facility] [address] [place] [address], [place] Creatinine [Mass/Vol] 1.08 mg/dL Normal 0.70-1.30 The [facility] Comment on above: Performed By: #### 5 73, 87800 #### [facility] [address] [place] [address], [place] GFR/1.73 sq M predicted among blacks MDRD (S/P/Bld) [Vol rate/Area] mL/min/{1.73_m2} Normal >60 The [facility] Comment on above: Performed By: #### 5 73, 10702 #### [facility] [address] [place] [address], [place] GFR/1.73 sq M predicted among non-blacks MDRD (S/P/Bld) [Vol rate/Area] mL/min/{1.73_m2} Normal >60 The [facility] Comment on above: Performed By: #### 5 73, 62376 #### [facility] [address] Glucose [Mass/Vol] 87 mg/dL Normal 70-100 The [facility] Comment on above: Performed By: #### 5 7307, 10572 #### [facility] [address] [place] [address], [facility] Potassium [Moles/Vol] 4.0 mmol/L Normal 3.5-5.1 The [facility] Comment on above: Performed By: #### 5 7306, 88834 #### [facility] [address] [place] [address], [facility] Sodium [Moles/Vol] 137 mmol/L Normal 136-145 The [facility] Comment on above: Performed By: #### 5 Al, 94656 #### [facility] [address] [facility] [address] Urea nitrogen [Mass/Vol] 12 mg/dL Normal 7-25 The [facility] Comment on above: Performed By: #### 5 73, 73716 #### [facility] [address] [place] [address], [facility] CBC W/DIFFon 01-23-2019 ABS BASOPHILS 0.1 10*3/uL Normal 0.0-0.2 The [facility] Comment on above: Performed By: #### 5 7307, 72571 #### [facility] [address] ABS IMM GRANS 0.0 10*3/uL Normal 0.0-0.2 The [facility] Comment on above: Performed By: #### 5 7307, 48250 #### [facility] [address] ABS NEUTROPHILS 5.3 10*3/uL Normal 1.6-7.6 The [facility] Comment on above: Performed By: #### 5 7307, 52694 #### [facility] [address] [place] [address], [facility] Basophils/100 WBC (Bld) 0.9 % Normal 0.0-1.0 The [facility] Comment on above: Performed By: #### 5 7306, 20526 #### [facility] [address] [place] [address], [facility] Eosinophils (Bld) [#/Vol] 0.2 10*3/uL Normal 0.0-0.5 The [facility] Comment on above: Performed By: #### 7306, 80418 #### [facility] [address] [place] [address], [facility] Eosinophils/100 WBC (Bld) 2.3 % Normal 0.0-6.0 The [facility] Comment on above: Performed By: #### 7306, 45140 #### [facility] [address] [facility] [address] Erythrocyte distribution width (RBC) [Ratio] 13.8 % Normal 11.5-15.0 The [facility] Comment on above: Performed By: #### 5 7306, 36784 #### [facility] 3000 [facility]. [address] Hematocrit (Bld) [Volume fraction] 49.6 % Normal 39.0-50.0 The [facility] Comment on above: Performed By: #### 5 7306, 34550 #### [facility] [address] [facility] [place] [address], [facility] Hemoglobin (Bld) [Mass/Vol] 16.4 g/dL Normal 13.0-17.0 The [facility] Comment on above: Performed By: #### 5 7306, 64872 #### [facility] [address] [place] [address], [facility] IMMATURE GRANS 0.5 % Normal 0.0-1.0 The [facility] Comment on above: Performed By: #### 5 7306, 45278 #### [facility] [address] [place] [address], [facility] Lymphocytes (Bld) [#/Vol] 1.2 10*3/uL Normal 1.2-4.0 The [facility] Comment on above: Performed By: #### 5 7306, 73341 #### [facility] [address] [place] [address], [facility] Lymphocytes/100 WBC (Bld) 16.6 % Low 20.0-45.0 The [facility] Comment on above: Performed By: #### 7306, 44459 #### [facility] [address] [facility] [place] [address], [facility] MCH (RBC) [Entitic mass] 27.8 pg Normal 27.0-33.0 The [facility] Comment on above: Performed By: #### 7306, 52672 #### [facility] [address] [facility] [address] MCHC (RBC) [Mass/Vol] 33.1 g/dL Normal 32.0-35.0 The [facility] Comment on above: Performed By: #### 5 7306, 39560 #### [facility] [address] [facility] [place] [address], [facility] MCV (RBC) [Entitic vol] 84.2 fL Normal 82.0-98.0 The [facility] Comment on above: Performed By: #### 5 7306, 92742 #### [facility] [address] [facility] [place] [address], [facility] Monocytes (Bld) [#/Vol] 0.7 10*3/uL Normal 0.1-1.0 The [facility] Comment on above: Performed By: #### 5 7306, 07074 #### [facility] [address] [place] [place] [address], [facility] MONOS 9.4 % Normal 5.0-12.0 The [facility] Comment on above: Performed By: #### 5 7307, 64405 #### [facility] [address] [place] [address], [facility] Neutrophils/100 WBC (Bld) 70.3 % Normal 40.0-72.0 [facility] Comment on above: Performed By: #### 5 7307, 45878 #### [facility] [address] [place] [place] [address], [facility] Nucleated RBC/100 WBC (Bld) [Ratio] 0 % Normal 0-0 The [facility] Comment on above: Performed By: #### 5 73, 51297 #### [facility] [address] [facility] [place] [address], [facility] PLAT CNT 235 10*3/uL Normal 150-400 The [facility] Comment on above: Performed By: #### 5 7307, 93211 #### [facility] [address] [facility] [place] [address], [facility] RBC (Bld) [#/Vol] 5.89 10*6/uL High 4.20-5.70 The [facility] Comment on above: Performed By: #### 5 7307, 26558 #### [facility] [address] [facility] [place] [address], [facility] WBC (Bld) [#/Vol] 7.48 10*3/uL Normal 4.00-10.60 The [facility] Comment on above: Performed By: #### 5 7307, 43881 #### [facility] 3000 [facility]. [address] PROTHROMBIN TIMEon 9 INR Coag (PPP) [Relative time] 1.12 {INR} Normal 0.91-1.16 The [facility] Comment on above: Result Comment: ACCC [...] CHEST 1995;108:231S-246S. Performed By: #### 5 7307, 65291 #### [facility] [address] PT Coag (PPP) [Time] 14.4 s Normal 12.3-14.8 [facility] Comment on above: Result Comment: ALL RESULTS MUST BE INTERPRETED WITH RESPECT TO BLOOD DRAWING ARTIFACT OR DILUTION ERROR OF ANTICOAGULANT AT THE TIME OF SAMPLING. Performed By: #### 5 7307, 90142 #### [facility] [address] TYPE AND SCREENon 01-23-2019 ABO INTERPRETATION A Normal [facility] Comment on above: Performed By: #### 5 7307, 75758 #### [facility] 3000 [facility]. [address] RH INTERPRETATION Positive Normal [facility] Comment on above: Performed By: #### 5 7307, 12957 #### [facility] [address] 3D CERVICAL SPINE WO CONT RASTon 01-12-2019 CT 3D CERVICAL SPINE WO CONTRAST [facility] Department of Radiology [address] [place] [phone] Patient Name: MATTY GARCES : 1970 Sex: M Age: Race: White Pt. Location: Patient Status: D Ordered Date: 01/10/2019 2:15:00 PM Completed Date: 01/12/2019 10:32 AM Requesting Provider: LUCIANO VIEIRA Attending Provider: LUCIANO VIEIRA Report Copy To: VENUS MENDEZ Signs & Symptoms: M48.02 Spinal stenosis, cervical region I10 History: [place] para auth # [id number] 01/10/19-02/09/19 [id number] *er Comments: Exam: CT 3D CERVICAL SPINE [...] incomplete Electronically signed by:Ten [place]. Transcribed by: [email or web address], User Resident: Electronically Signed by: TEN GARLAND @ 01/13/2019 09:18 AM Normal The [facility] CERVICAL SPINE 2 OR 3 [facility] 01-05-2019 CERVICAL SPINE 2 OR 3 [facility] Department of Radiology [address] [place] [phone] Patient Name: MATTY GARCES : 1970 [...] 3 VWS CERVICAL SPINE 2 OR 3 [facility] 01/05/2019 9:06 AM EDT SIGNS AND [...] findings. Electronically signed by:Ten [place]. Transcribed by: [email or web address], User Resident: SHELLY DELA CRUZ Electronically Signed by: TEN GARLAND @ 01/05/2019 12:37 PM I personally read this/these film(s) with this resident Normal The [facility] Comment on above: Order Comment: , , = ========= , Ordering Provider - LUCIANO VIEIRA MD , CERVICAL SPINE 2 OR 3 [facility] 08-30-2018 CERVICAL SPINE 2 OR 3 [facility] Department of Radiology [address] [place] [phone] Patient Name: MATTY GARCES : 1970 Sex: M Age: Race: White Pt. Location: 85 Patient Status: O Ordered Date: 08/30/2018 9:35:00 [...] findings. Electronically signed by:Bella King. Transcribed by: [email or web address], User Resident: RYAN HEAD Electronically Signed by: BELLA KING @ 08/30/2018 05:45 PM I personally read this/these film(s) with this resident Normal The [facility] Comment on above: Order Comment: , POS T OP XRAY AP/LAT ONLY , POST OP XRAY AP/LAT ONLY , , , Ordering Provider - LUCIANO VIEIRA MD , Operative Reporton 8 Operative Report MR#: [id number] I [facility] Pt. Name: Matty Garces Room #: [id number] Discharge Date: Birthdate: 1970 OPERATIVE REPORT DATE OF SURGERY: 08/17/2018 SURGEON: Luciano Vieira M.D. PREOPERATIVE DIAGNOSIS: Herniated cervical disk at C6-7. POSTOPERATIVE DIAGNOSIS: Herniated cervical disk at C6-7. DINKEY OPERATOR SLATE: ADENIKE Larios. ANESTHESIA: Endotracheal, Braida. PROCEDURE: Anterior [...] P/Luciano Vieira M.D. Date Trans: 08/17/2018 11:25 P/yungo [id number]:[id number] cc: Venus Mendez M.D. [address], [facility] [place] [address] Normal The [facility] CERVICAL SPINE 2 OR 3 [facility] 08-17-2018 CERVICAL SPINE 2 OR 3 [facility] Department of Radiology [address] [place] [address] Patient Name: MATTY GARCES : [...] findings. Electronically signed by:Bernice Hoyt. Transcribed by: [email or web address], User Resident: EMILE TINAJERO Electronically Signed by: BERNICE HOYT @ 08/18/2018 01:06 PM I personally read this/these film(s) with this resident Normal The [facility] Comment on above: Order Comment: C6-7 ACDF with POC GLUCOSE LABon 08-17-2018 Glucose [Mass/Vol] 113 mg/dL High 70-100 The [facility] Comment on above: Performed By: #### 8 5499 #### [facility] 3000 [facility]. [address] RBC'S 2 UNITSon 08-17-2018 CROSSMATCH INTERP 1 COMP Normal The [facility] Comment on above: Performed By: #### 8 6002 #### [facility] [address] [facility] [place] [address], [facility] CROSSMATCH INTERP 2 COMP Normal The [facility] Comment on above: Performed By: #### 8 6002 #### [facility] [address] [facility] [place] [address], [facility] PRODUCT CODE 1 E0336 Normal [facility] Comment on above: Performed By: #### 8 6002 #### [facility] [address] [place] [address], [facility] PRODUCT CODE 2 E0336 Normal The [facility] Comment on above: Performed By: #### 8 6002 #### [facility] [address] [place] [address], [facility] PRODUCT STATUS 1 RE Normal [facility] Comment on above: Result Comment: Resu lt changed by IF on 08/20/2018 07:48. The previous value was XM. Performed By: #### 8 6002 #### [facility] [address] [place] [address], [facility] PRODUCT STATUS 2 RE Normal [facility] Comment on above: Result Comment: Resu lt changed by IF on 08/20/2018 07:48. The previous value was XM. Performed By: #### 8 6002 #### [facility] [address] [place] [address], [facility] UNIT ABO 1 A Normal The [facility] Comment on above: Performed By: #### 8 6002 #### [facility] [address] [place] [address], [place] UNIT ABO 2 A Normal The [facility] Comment on above: Performed By: #### 8 6002 #### [facility] [address] [place] [address], [facility] UNIT ID 1 [id number] Normal The [facility] Comment on above: Performed By: #### 8 6002 #### [facility] [address] [place] [address], [place] UNIT ID 2 [id number] Normal The [facility] Comment on above: Performed By: #### 8 6002 #### [facility] [address] [place] [address], [place] UNIT RH 1 Positive Normal The [facility] Comment on above: Performed By: #### 8 6002 #### [facility] [address] UNIT RH 2 Positive Normal The [facility] Comment on above: Performed By: #### 8 6002 #### [address] *MRSA/MSSA CULTUREon 018 *MRSA/MSSA CULTURE Clinical Report: (D) Specimen: NASAL SWAB Collected: 08/02/2018 12:37 Status: Final Last Updated: 08/03/2018 14:26 ISO (Final) No Methicillin Resistant Staphylococcus aureus Isolated (MRSA) ISO (Final) Methicillin Sensitive Staphylococcus aureus (MSSA) Isolated Normal The [facility] Comment on above: Performed By: #### 3 1302 #### [address] APTTon 08-02-2018 aPTT Coag (Bld) [Time] 31.2 s Normal 25.0-35.0 The [facility] Comment on [...] THIS PURPOSE. Performed By: #### 5 7307, 81660 #### [address] BASIC METABOLIC PANELon 07-15 Calcium [Mass/Vol] 9.4 mg/dL Normal 8.6-10.3 [facility] Comment on above: Performed By: #### 0 0071 #### [facility] [address] Chloride [Moles/Vol] 103 mmol/L Normal 98-107 The [facility] Comment on above: Performed By: #### 0 0071 #### [facility] [address] CO2 [Moles/Vol] 29 mmol/L Normal 21-31 The [facility] Comment on above: Performed By: #### 0 0071 #### [facility] [address] [place] [address], [place] Creatinine [Mass/Vol] 1.06 mg/dL Normal 0.70-1.30 The [facility] Comment on above: Performed By: #### 0 0071 #### [facility] [address] [place] [address], [place] GFR/1.73 sq M predicted among blacks MDRD (S/P/Bld) [Vol rate/Area] mL/min/{1.73_m2} Normal >60 The [facility] Comment on above: Performed By: #### 0 0071 #### [facility] [address] [facility] [place] [address], [facility] GFR/1.73 sq M predicted among non-blacks MDRD (S/P/Bld) [Vol rate/Area] mL/min/{1.73_m2} Normal >60 The [facility] Comment on above: Performed By: #### 0 0071 #### [facility] [address] [place] [address], [place] Glucose [Mass/Vol] 84 mg/dL Normal 70-100 The [facility] Comment on above: Performed By: #### 0 0071 #### [facility] [address] [place] [address], [place] Potassium [Moles/Vol] 4.0 mmol/L Normal 3.5-5.1 The [facility] Comment on above: Performed By: #### 0 0071 #### [facility] [address] [place] [address], [place] Sodium [Moles/Vol] 140 mmol/L Normal 136-145 The [facility] Comment on above: Performed By: #### 0 0071 #### [facility] [address] Urea nitrogen [Mass/Vol] 20 mg/dL Normal 7-25 The [facility] Comment on above: Performed By: #### 0 0071 #### [facility] [address] CBC W/DIFFon 08-02-2018 ABS BASOPHILS 0.1 10*3/uL Normal 0.0-0.2 The [facility] Comment on above: Performed By: #### 5 0103 #### [facility] [address] ABS IMM GRANS 0.1 10*3/uL Normal 0.0-0.2 The [facility] Comment on above: Performed By: #### 5 3 #### [facility] [address] ABS NEUTROPHILS 4.2 10*3/uL Normal 1.6-7.6 [facility] Comment on above: Performed By: #### 5 0103 #### [facility] [address] Basophils/100 WBC (Bld) 1.3 % High 0.0-1.0 The [facility] Comment on above: Performed By: #### 5 0103 #### [facility] [address] Eosinophils (Bld) [#/Vol] 0.1 10*3/uL Normal 0.0-0.5 The [facility] Comment on above: Performed By: #### 5 0103 #### [facility] [address] [place] [address], [facility] Eosinophils/100 WBC (Bld) 2.0 % Normal 0.0-6.0 The [facility] Comment on above: Performed By: #### 5 0103 #### [facility] [address] [facility] [address] Erythrocyte distribution width (RBC) [Ratio] 13.6 % Normal 11.5-15.0 [facility] Comment on above: Performed By: #### 5 3 #### [facility] 3000 [facility] [address] Hematocrit (Bld) [Volume fraction] 44.3 % Normal 39.0-50.0 [facility] Comment on above: Performed By: #### 102 #### [facility] 3000 [facility]. [address] Hemoglobin (Bld) [Mass/Vol] 15.1 g/dL Normal 13.0-17.0 [facility] Comment on above: Performed By: #### 102 #### [facility] 3000 [facility]. [address] IMMATURE GRANS 1.1 % High 0.0-1.0 The [facility] Comment on above: Performed By: #### 5 3 #### [facility] 3000 [facility]. [address] Lymphocytes (Bld) [#/Vol] 1.2 10*3/uL Normal 1.2-4.0 The [facility] Comment on above: Performed By: #### 5 3 #### [facility] 3000 [facility]. [address] Lymphocytes/100 WBC (Bld) 18.3 % Low 20.0-45.0 [facility] Comment on above: Performed By: #### 5 3 #### [facility] [address] MCH (RBC) [Entitic mass] 29.0 pg Normal 27.0-33.0 [facility] Comment on above: Performed By: #### 5 3 #### [facility] 3000 [facility] [address] MCHC (RBC) [Mass/Vol] 34.1 g/dL Normal 32.0-35.0 The [facility] Comment on above: Performed By: #### 5 0103 #### [facility] [address] [facility] [place] [address], [facility] MCV (RBC) [Entitic vol] 85.0 fL Normal 82.0-98.0 [facility] Comment on above: Performed By: #### 5 0103 #### [facility] [address] [facility] [place] [address], [facility] Monocytes (Bld) [#/Vol] 0.7 10*3/uL Normal 0.1-1.0 [facility] Comment on above: Performed By: #### 3 #### [facility] [address] [facility]. [address] MONOS 11.1 % Normal 5.0-12.0 [facility] Comment on above: Performed By: #### 5 3 #### [facility] [address] [place] [address], [facility] Neutrophils/100 WBC (Bld) 66.2 % Normal 40.0-72.0 [facility] Comment on above: Performed By: #### 5 3 #### [facility] [address] [facility] [place] [address], [facility] Nucleated RBC/100 WBC (Bld) [Ratio] 0 % Normal 0-0 [facility] Comment on above: Performed By: #### 5 0103 #### [facility] [address] [facility] [address], [facility] PLAT CNT 179 10*3/uL Normal 150-400 The [facility] Comment on above: Performed By: #### 5 3 #### [facility] [address] [place] [address], [facility] RBC (Bld) [#/Vol] 5.21 10*6/uL Normal 4.20-5.70 The [facility] Comment on above: Performed By: #### 5 0103 #### [address] WBC (Bld) [#/Vol] 6.39 10*3/uL Normal 4.00-10.60 [facility] Comment on above: Performed By: #### 5 0103 #### [facility] [address] CERVICAL SPINE 4 OR 5 VIEWSo 08-02-2018 CERVICAL SPINE 4 OR 5 VIEWS [facility] Department of Radiology [address] [place], [place] [id number] Patient Name: MATTY GARCES : 1970 Sex: M Age: Race: White Pt. Location: Patient Status: D Ordered Date: 08/02/2018 1:05:00 PM Completed Date: 08/02/2018 01:29 PM Requesting Provider: LUCIANO VIEIRA Attending Provider: LUCIANO VIEIRA Report Copy To: VENUS MENDEZ Signs & Symptoms: Z01.89 Encounter for other specified special examinations I10 History: [place] Comments: , PREOP XRAY AP/LAT \EANDE\ FLEX/EX [...] findings. Electronically signed by:Bella King. Transcribed by: [email or web address], User Resident: EMILE TINAJERO Electronically Signed by: BELLA KING @ 08/03/2018 11:58 AM I personally read this/these film(s) with this resident Normal [facility] Comment on above: Order Comment: , PRE OP XRAY AP/LAT \EANDE\ FLEX/EX , PREOP XRAY AP/LAT \EANDE\ FLEX/EX , , , Ordering Provider - LUCIANO VIEIRA MD , PROTHROMBIN TIMEon 8 INR Coag (PPP) [Relative time] 1.15 {INR} Normal 0.91-1.16 [facility] Comment on above: Result Comment: [facility] P RECOMMENDED INR FOR WARFARIN THERAPY [...] CHEST 1995;108:231S-246S. Performed By: #### 5 7307, [id number] #### [facility] [address] PT Coag (PPP) [Time] 14.7 s Normal 12.3-14.8 [facility] Comment on above: Result Comment: ALL RESULTS MUST BE INTERPRETED WITH RESPECT TO BLOOD DRAWING ARTIFACT OR DILUTION ERROR OF ANTICOAGULANT AT THE TIME OF SAMPLING. Performed By: #### 5 7307, [id number] #### [facility] [address] TYPE AND SCREENon 08-02-2018 ABO INTERPRETATION A Normal The [facility] Comment on above: Order Comment: 2 uni ts 2 units 2 units 2 units 2 units Performed By: #### 6 2586 #### [facility] [address] [facility] [place] [place] [address], [facility] RH INTERPRETATION Positive Normal The [facility] Comment on above: Order Comment: 2 uni ts 2 units 2 units 2 units 2 units Performed By: #### 6 2586 #### [facility] [address] [facility] [address], [facility] URINALYSIS REFLEXon 08-02-20 18 Appearance (U) CLEAR Normal CLEAR The [facility] Comment on above: Performed By: #### 3 0965 #### [facility] [address] [place] [address], [place] Bilirubin [Mass/Vol] Negative Normal NEGATIVE [facility] Comment on above: Performed By: #### 3 0965 #### [facility] [address] [place] [address], [place] BLOOD Negative Normal NEGATIVE [facility] Comment on above: Performed By: #### 3 0965 #### [facility] [address] [place] [address], [place] Color (U) YELLOW Normal YELLOW [facility] Comment on above: Performed By: #### 3 0965 #### [facility] [address] [place] [address], [place] Glucose [Mass/Vol] 150 mg/dL Abnormal NEGATIVE The [facility] Comment on above: Performed By: #### 3 0965 #### [facility] [address] [place] [address], [place] KETONE Negative Normal NEGATIVE [facility] Comment on above: Performed By: #### 3 0965 #### [facility] [address] [place] [address], [place] Negative Normal NEGATIVE [facility] Comment on above: Performed By: #### 3 0965 #### [facility] [address] [place] [address], [place] MICRO NOT DONE negative chemical reactions unless requested in original order Normal [facility] Comment on above: Performed By: #### 3 0965 #### [facility] [address] [place] [address], [place] Nitrite Ql (U) Negative Normal NEGATIVE The [facility] Comment on above: Performed By: #### 3 0965 #### [facility] [address] [place] [address], [place] pH (Bld) 5.0 Normal 5.0-8.0 [facility] Comment on above: Performed By: #### 3 0965 #### [facility] [address] [place] [address], [facility] Protein (U) [Mass/Vol] Negative Normal NEGATIVE [facility] Comment on above: Performed By: #### 3 0965 #### [facility] [address] SPEC GRAV 1.024 High 1.015-1.020 The [facility] Comment on above: Performed By: #### 3 0965 #### [facility] [address] Vital Signs Date Time Vital Sign Value Performing Clinician Faci lity 02-25-2022 10:30-0400 Blood Pressure Location Viola Lue [facility] 02-25-2022 10:30-0400 Diastolic blood pressure 107 mm[Hg] Viola Lue [facility] 02-25-2022 10:30-0400 Heart rate 74 /min Viola Lue [facility] 02-25-2022 10:30-0400 Respiratory rate 16 /min Viola Lue [facility] 02-25-2022 10:30-0400 Systolic blood pressure 157 mm[Hg] Viola Lue [facility] Encounters Encounter Date Encounter Type Care Provider Facility Start: 07-03-2024 End: 07-03-2024 Bamboo flowsheet Rubén Geiger MD Work Phone: [facility] Start: 07-03-2024 End: 07-03-2024 Bamboo flowsheet Rubén Geiger MD Work Phone: [facility] Start: 01-10-2024 End: 01-11-2024 ambulatory VALENCIA Pate APLING Not Available Start: 01-03-2024 End: 01-03-2024 ambulatory Trey [facility] Work Phone: Start: 01-03-2024 End: 01-03-2024 Departed Referred DPM Trey [facility] Work Phone: [facility] Start: 12-29-2023 End: 12-29-2023 ambulatory RUBÉN GEIGER Not Available Start: 11-29-2023 End: 11-30-2023 ambulatory Andikeus Vytautprasanna Faustitis Facility:[facility] Start: 10-18-2023 End: 10-19-2023 ambulatory Diallo Martinezytmiguelina Faustitis Facility:[facility] Start: 09-27-2023 End: 09-27-2023 ambulatory RUBÉN GEIGER Not Available Start: 08-30-2023 End: 08-31-2023 ambulatory Diallo Martinezytmiguelina Faustitis Facility:[facility] Start: 07-12-2023 End: 07-13-2023 ambulatory Andikeus Juanytautprasanna Faustitis Facility:[facility] Start: 06-14-2023 End: 06-15-2023 ambulatory Kirkus Juanytautprasanna Faustitis Facility:[facility] Start: 12-06-2022 End: 12-06-[address] VENUS MENDEZ . Facility:[facility] Start: 12-05-2022 Encounter for genera l adult medical examination without abnormal findings DR VENUS MENDEZ . [facility] Start: 12-01-2022 End: 12-02-2022 ambulatory [...] 02-25-2022 End: 02-25-2022 Patient encounter procedure Viola WhittMarilee Thrasherfrance [facility] Start: 01-04-2022 End: 01-05-[address] VENUS MENDEZ . Facility: Start: 01-30-2019 End: 02-01-2019 Evaluation and management of inpatient PROVIDER UNKNOWN Facility:[facility] Start: 08-17-2018 End: 08-18-2018 Patient encounter procedure PROVIDER UNKNOWN Facility:[facility] Procedures Date Procedure Procedure Detail Performing Clinician Start: 12-01-[address] FRANKLIN MENDEZ . Comment on above: Performed By: #### P [facility] #### [facility] [address] [place] [address] Dr. Shabnam Rae Start: 01-30-2019 FUSION CERV JT W INT BD FUS DEV, ANT APPR A COL, OPEN [facility] Start: 01-30-2019 REMOVAL OF INT FIX F ROM CERVCAL VERTEBRA, OPEN APPROACH [facility] Start: 01-23-2019 Antibody screen PROVIDE R UNKNOWN Comment on above: Performed By: #### 5 [id number], 19781 #### [facility] [address] [facility] [place] [address], [facility] Start: 08-17-2018 ANESTH SPINE CORD SURGERY SANDRA [...] units Performed By: #### 6 2586 #### [facility] [address] [place] [address], [facility] Start: 02-08-1998 H/O: vasectomy History of vasectomy Rubén Geiger MD Work Phone: Colonoscopy Viola Grullon Hemorrhoids (disorder) Viola Lue Hernia of abdominal cavity (disorder) Viola Thrasherfrance Tonsillectomy Viola Thrasherfrance Plan of Treatment Date Care Activity Detail Author Start: 07-03-2024 End: 07-03-2024 Patient encounter procedure 07/03/2024 2:40 PM EDT Office Visit [facility] [address] [address] Rubén Geiger MD [address] [address] Arrived [facility] Comment on above: Arrived Start: 05-14-2024 Influenza vaccination Influenza Vacc ine (#1) [facility] Start: 1970 Screening for malign ant neoplasm of colon [facility] Immunizations Immunization Date Immunization Notes Care Provider Fa cility 07-06-2023 influenza virus vacc ine, unspecified formulation Rubén Geiger MD Work Phone: [facility] Payers Date Payer Category Payer Self-pay [id number] 2022 Medicaid [id number] 2022 Medicaid [facility] [id number] 2022 Unknown 1970 Unknown [id number] 2.16.840.1.337065.3.579.2.647 1970 Unknown [id number] 2.16.840.1.214966.3.579.2.647 1970 Unknown [id number] 2.16.840.1.214593.3.579.2.593 1970 Unknown [id number] 2.16.840.1.061309.3.579.2.593 1970 Unknown [id number] 2.16.840.1.909521.3.579.2.593 1970 Unknown [id number] 2.16.840.1.740509.3.579.2.593 1970 Unknown [id number] 2.16.840.1.191674.3.579.2.593 1970 Unknown [id number] 2.16.840.1.289137.3.579.2.593 1970 Unknown [id number] 2.16.840.1.669944.3.579.2.196 1970 Unknown [id number] 2.16.840.1.821897.3.579.2.196 1970 Unknown [id number] 2.16.840.1.540987.3.579.2.196 1970 Unknown [id number] 2.16.840.1.799290.3.579.2.196 1970 Unknown [id number] 2.16.840.1.679742.3.579.2.196 1970 Unknown [id number] 2.16.840.1.207096.3.579.2.9 1970 Unknown [id number] 2.16.840.1.742624.3.579.2.9 1970 Unknown [id number] 2.16.840.1.797043.3.579.2.9 1970 Unknown [id number] 2.16.840.1.879529.3.579.2.1259 1959 Unknown [id number] Unknown [id number] Unknown [id number] 2.16.840.1.417689.3.579.2.531 Social History Date Type Detail Facility Tobacco smoking status No Smokin g Status Entered [facility] Start: 03-27-2024 Sex Assigned At Male [facility] Start: 05-15-2018 Tobacco smoking stat [facility] Ex-smoker (finding) [facility] Start: 1970 Sex Assigned At Male [facility] Start: 03-11-2023 Tobacco smoking stat [facility] Never smoked tobacco [facility] Start: 03-11-2023 Tobacco use and exposure Smokeless tobacco non-user [facility] Start: 03-27-2024 Alcoholic beverage intake Ex-drinker (finding) [facility] Start: 03-27-2024 History of Social function [facility] Start: 1970 Sex assigned at Not on file [facility] Functional Status Date Assessment Result Facility 02-25-2022 Functional Status N/A [facility] Progress note 06-09-2023 Note Date & Type Note Facility 06-09-2023 Note [facility] Continue GDMT- Diuretic therapy Monitor daily weights, I&O, fluid restriction 1.5-2L/day, renal function and electrolytes- [facility] Clinical Note 03-26-2022 Note Date & [...] ALVINA CAICEDO Date: 2022-03-26 10:47 [facility] Discharge instructions 02-25-2022 Note Date & [...] Watch the hydrocele for any changes. Take iths-[id number] and prescription medicines only as told by [...] 02/17/2011 Document Revised: 09/10/2018 Document Reviewed: 09/10/2018 [employer] Patient Education 2020 [employer] Follow Up Care 01/28/2022 10:36:35 With:Mitchel DELGADO, Viola Cohn, URL, [facility] Address: When: Unknown [facility] Evaluation + Plan note Note Date & Type Note Facility Evaluation + Plan note No data available for this section [facility] Evaluation note Note Date & Type Note Facility Evaluation note No assessment information availa [facility] Work Phone: Progress note Note Date & Type Note Facility Progress note No data available for this section [facility] Summary Purpose Family History No Family History Records FoundNo Family History Records FoundNo Family History Records FoundNo Family History Records FoundNo Family History Records FoundNo Family History Records FoundNo Family History Records Found Advance Directives Advance Directive Response Recorded Date/ Time Advance Directives No May 12:42pm Hospital Course Note MR#: [id number] [facility] Pt. Name: Matty Garces Admitted: 01/30/2019 Discharged: [...] and content) DATE CREATED AUTHOR 07/19/[address] [facility] DATE CREATED AUTHOR AUTHOR'S ORGANIZ ATION 02/27/[address] [facility] DATE CREATED AUTHOR AUTHOR'S ORGANIZ ATION 12/08/2022 [facility] DATE CREATED AUTHOR AUTHOR'S ORGANIZ ATION 06/17/2023 [facility] DATE CREATED AUTHOR AUTHOR'S ORGANIZ ATION 12/03/2023 [facility] DATE CREATED AUTHOR AUTHOR'S ORGANIZ ATION 01/15/2024 [facility] DATE CREATED AUTHOR AUTHOR'S ORGANIZ ATION 03/28/2024 [facility] ys[facility] Care Team (unrecognized sect ion and content) Team Status: Inactive Member Role Status Dates Trey Vallejo DPM MS Attending Provider Active Start: January 03, 2024 End: January 03, 2024 Forging Engineer Relationship Specialty Start Date End Date Venus Mendez MD [address] [place] [address] PCP - General Family Medicine 01/10/24 Goals (unrecognized section and content) Goals may [...] BE BASED ON THE PRIMARY CLINICAL RECORDS. [employer] provides no warranty or guarantee of the accuracy or completeness of information in this document.
== END 2024-07-04 08:50 | disposition home or self-care (01) ==
LOC: RAD 08:49
PROVIDERS: PCP Family Medicine; Visit Provider Podiatrist Foot & Ankle Surgery
DX: M25.572 Pain in left ankle and joints of left foot (principal); M25.472 Effusion, left ankle
CPT/HCPCS: 73610

== ENCOUNTER 2024-07-07 09:37 | Outpatient (OUT) | payer MEDICAID, SELFPAY ==
--- OUTSIDE RECORDS SUMMARY | 2024-07-07 09:56 | XMS_ITS | CCD ---
Author Organization [facility] Clini[facility] Care Team Providers Care Tank Bottom Assembler Name Role Phone UNKNOWN, PROVIDER Admitting Unavailable UNKNOWN, PROVIDER Attending Unavailable VENUS MENDEZ Referring Unavailable VENUS MENDEZ Primary Care Unavailable UT Procedure Practitioner Unavailab le UNKNOWN, PROVIDER Surgeon Unavailable UT Procedure Practitioner Unavailab le SANDRA BILL Surgeon Unavailable UNKNOWN, PROVIDER Admitting Unavailable UNKNOWN, PROVIDER Attending Unavailable VENUS MENDEZ Referring Unavailable VENUS MENDEZ Primary Care Unavailable UT Procedure Practitioner Unavailab le UNKNOWN, PROVIDER Surgeon [...] Unavailable Quynh DELGADO, Andisai Berkowitz Attending Unavailable Gishruthi DELGADO, Andrius Berkowitz Attending Unavailable Gishruthi DELGADO, Andrius Woo Attending Unavailable Gishruthi DELGADO, Andrius Juanytautprasanna Attending Unavailable Quynh DELGADO, Andrius Berkowitz Attending Unavailable CHINO Vallejo Attending Provider Trey Vallejo Attending Unavailable Trey Vallejo Admitting Unavailable Venus Mendez MD Primary Care Provider RUBÉN GEIGER Attending Unavailable RUBÉN GEIGER Attending Unavailable VALENCIA DE LEÓN Attending Unavailable VALENCIA DE LEÓN Referring Unavailable RUBÉN GEIGER Attending Unavailable RUBÉN GEIGER Attending Unavailable Allergies Allergy Classification Reported Allergen(s) Allergy Type Date of Onset Reaction(s) Facility (1 source) Aspartame Drug Allergy 08-17-20 18 [facility] Repository (1 source) avoid; Translations: [Unknown] Propensity to adverse reactions (disorder) 08-17-20 18 [facility] (1 source) vitamin B12; Translations: [cyanocobalamin] Drug Allergy Unknown (qualifier value) [facility] (1 source) Acetaminophen / HYDROcodone Drug Allergy [facility] (1 source) Corticosteroids Drug allergy (disorder) [facility] (1 source) fentaNYL Drug Allergy [facility] (1 source) Misc-Food; Translations: [Misc-Food] Food allergy (disorder) [facility] (1 source) Corticosteroids Drug allergy (disorder) 05-14-20 [facility] Repository (4 sources) fentaNYL Drug Allergy 07-08-20 Unknown [facility] (4 sources) HYDROcodone Drug Allergy 07-08-20 21 Unknown [facility] (4 sources) Morphine And Codeine Drug Allergy 07-08-20 21 Unknown [facility] (4 sources) Other Propensity to adverse reactions 07-08-20 21 [facility] Medications Current Medications Medication Drug Class(es) Dates Sig (Normalized) Sig (Original) acetaminophen 325 mg / HYDROcodone bitartrate 5 mg oral tablet (4 sources) Opioid Agonist Start: 03-20-2024 HYDROcodone-acet aminophen ([place]) 5-325 MG tablet 03/20/2024 Active amantadine hydrochloride 100 mg oral tablet (4 sources) Influenza A M2 Protein Inhibitor Start: 04-10-2024 End: 04-10-2025 take 1 tablet by mouth in the morning amantadine (Symmetrel) 100 MG tablet Indications: Excessive daytime sleepiness , Primary insomnia Take 1 tablet (100 mg) by mouth in the morning and at noon 180 tablet 3 04/10/2024 04/10/2025 Active aspirin 81 mg delayed release oral tablet (5 sources) Platelet Aggregation Inhibitor, Nonsteroidal Anti-inflammatory Drug Start: 05-14-2018 take 81 mg by mouth once daily Aspirin Active 81 MG PO Daily May 14, 2018 12:00am ASPIRIN 81 MG ch ewable tablet Chew 81 mg in the morning. Active B-D 3CC LUER-SAYRA SYR 23GX1 23G X 1 3 ML misc (4 sources) Start: 05-18-2023 B-D 3CC LUER-L OK SYR 23GX1 23G X 1 3 ML misc USE 1 SYRINGE INTRAMUSCULARLY ONCE A WEEK 05/18/2023 Active Biotin (6 sources) Start: 02-26-2022 BIOTIN BIOTIN Start Date: 02/26/22 Status: Ordered Start: 05-14-2018 take 10 mg by mouth once daily Biotin Active 10 MG PO Daily May 14, 2018 12:00am carvedilol 25 mg oral tablet (6 sources) alpha-Adrenergic Jorge L, beta-Adrenergic Jorge L Start: 02-26-2022 carvedilol 25 mg Tab Refills(s) 0 Start Date: 02/26/22 Status: Ordered Start: 05-14-2018 take 12.5 mg by mout h twice daily Carvedilol Active 12.5 MG PO Twice daily May 14, 2018 12:00am celecoxib 100 mg oral capsule (4 sources) Nonsteroidal Anti-inflammatory Drug CeleBREX 100 MG capsule 1 (one) time each day at the same time Active cholecalciferol 0.125 mg oral capsule (4 sources) Vitamin D Start: 2023 cholecalciferol (Vitamin D-3) 125 MCG (5000 UT) capsule 03/15/2024 Active citalopram 20 mg oral tablet (4 sources) Serotonin Reuptake Inhibitor Start: 2022 CeleXA 20 MG tablet 1 (one) time each day at the same time. 06/02/2023 Active clonazePAM 1 mg oral tablet (8 sources) Benzodiazepine Start: 2023 End: 2024 take 1 tablet by mouth at bedtime clonazePAM (KlonoPIN) 1 MG tablet Indications: Primary insomnia Take 1 tablet (1 mg) by mouth at bedtime 30 tablet 2 07/04/2024 10/02/2024 Active Start: 02-26-2022 ClonazePAM 0.5 mg Tab [...] 2018 12:00am doxazosin 8 mg oral tablet (5 sources) alpha-Adrenergic Jorge L Start: 02-26-2022 doxazosin 8 mg oral tablet Refills(s) 0 Start Date: 02/26/22 Status: Ordered doxepin hydrochloride 10 mg oral capsule (6 sources) Tricyclic Antidepressant Start: 02-26-2022 doxepin 10 mg Cap Refills(s) 0 Start Date: 02/26/22 Status: Ordered DULoxetine 60 mg delayed release oral capsule (4 sources) Serotonin and Norepinephrine Reuptake Inhibitor take 1 capsule by mouth in the morning DULoxetine (Cymbalta) [address] capsule Take 60 mg by mouth in the morning and 60 mg in the evening. Active escitalopram 20 mg oral tablet (4 sources) Serotonin Reuptake Inhibitor take 1 tablet by mouth in the morning escitalopram (Lexapro) 20 MG tablet Take 20 mg by mouth in the morning. Active furosemide 20 mg oral tablet (4 sources) Loop Diuretic take 1 tablet by mouth in the morning furosemide (Lasix) 20 MG tablet Take 20 mg by mouth in the morning. Active gabapentin 600 mg oral tablet (6 sources) Anti-epileptic Agent Start: 05-14-2018 gabapentin 600 mg Tab Refills(s) 0 Start Date: 02/26/22 Status: Ordered glycopyrrolate 1 mg oral tablet (5 sources) Start: 01-22-2023 take 1 tablet by mouth in the morning glycopyrrolate (Robinul) 1 MG tablet Take 1 mg by mouth in the morning and 1 mg before bedtime. 01/22/2023 Active Start: 02-26-2022 glycopyrrolate 1 mg oral tablet Refills(s) 0 Start Date: 02/26/22 Status: Ordered hydrOXYzine pamoate 25 mg oral capsule (4 sources) Antihistamine Start: 05-11-2024 take 1 capsule by [...] 12:00am meclizine hydrochloride 25 mg chewable tablet (4 sources) Antiemetic Meclizine HCl 25 MG chewable tablet Chew 25 mg 1 (one) time each day at the same time. Active melatonin 10 mg oral capsule (6 sources) Start: 07-14-2023 End: 07-04-2025 take 1 capsule by mouth at bedtime Melatonin 10 MG capsule Indications: Primary insomnia Take 10 mg by mouth at bedtime 90 capsule 3 07/04/2024 07/04/2025 Active modafinil 200 mg oral tablet (7 sources) Sympathomimetic-lik e Agent Start: 04-10-2024 End: 10-02-2024 take 1 tablet by mouth in the morning modafinil (Provigil) 200 MG tablet Indications: Excessive daytime sleepiness , Obstructive sleep apnea Take 1 tablet (200 mg) by mouth in the morning and at noon 180 tablet 07/04/2024 10/02/2024 Active Start: 02-26-2022 modafinil 200 mg Tab Refills(s) 0 Start Date: 02/26/22 Status: Ordered Multiple Vitamins-Minerals (Multi For Him 50+) tablet (4 sources) Multiple Vitamins-Minerals (Multi For Him 50+) tablet as directed Orally Active omeprazole 40 mg delayed release oral capsule (1 source) Proton Pump Inhibitor Start: take 40 mg by mouth twice daily Omeprazole Active 40 MG PO Twice daily May 14, 2018 12:00am ondansetron 4 mg disintegrating oral tablet (9 sources) Serotonin-3 Receptor Antagonist Start: ondansetron ODT (Zofran-ODT) 4 MG disintegrating tablet 03/15/2024 Active Start: 05-14-2018 Ondansetron Ac tive 4 MG PO every 6 to 8 hours May 14, 2018 12:00am ondansetron (Zof ran) 4 MG tablet Take 4 mg by mouth if needed. Active OXcarbazepine 300 mg oral tablet (4 sources) Anti-epileptic Agent take 1 tablet by mouth at bedtime OXcarbazepine (Trileptal) 300 MG tablet Take 300 mg by mouth at bedtime. Active pantoprazole 40 mg delayed release oral tablet (5 sources) Proton Pump Inhibitor Start: Pantoprazole [address] Tab Refills(s) 0 Start Date: 02/26/22 Status: Ordered potassium chloride 10 meq extended release oral tablet (4 sources) Start: take 1 tablet by mouth at mealtime potassium chloride CR (Klor-Con) 10 MEQ ER tablet Take 10 mEq by mouth in the morning. Take with food. . 02/22/2023 Active sennosides, residential 8.6 mg oral tablet (4 sources) Start: senna (Senokot) 8.6 MG tablet 03/15/2024 Active simvastatin 20 mg oral tablet (6 sources) HMG-CoA Reductase Inhibitor Start: simvastatin 20 mg Tab Refills(s) 0 Start Date: 02/26/22 Status: Ordered SUMAtriptan 100 mg oral tablet (5 sources) Serotonin-1b and Serotonin-1d Receptor Agonist Start: Sumatriptan Succinate Active 100 MG PO EVERY 2-4 HOURS May 14, 2018 12:00am take 1 tablet by mouth once ALAINA triptan (Imitrex) 100 MG tablet Take 100 mg by mouth 1 (one) time if needed. Active 1 ml testosterone cypionate 200 mg/ml injection (4 sources) Androgen testosterone cyp ionate (Depo-Testosterone) 200 MG/ML injection Inject 200 mg into the shoulder, thigh, or buttocks every 14 (fourteen) days. Active thiamine 100 mg oral tablet (1 source) Start: 024 End: 025 take 1 tablet by mouth once daily thiamine (Vitamin B-1) 100 MG tablet Indications: Excessive daytime sleepiness Take 1 tablet (100 mg) by mouth Daily 30 tablet 11 07/05/2024 07/05/2025 Active tiZANidine 4 mg oral capsule (5 sources) Central alpha-2 Adrenergic Agonist Start: 018 take 4 mg by mouth at bedtime Tizanidine Active 4 MG PO Bedtime May 14, 2018 12:00am take 1 tablet by mouth at bedtim e tiZANidine (Zanaflex) 4 MG tablet Take 4 mg by mouth at bedtime. 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; Translations: [Unspecified mental disorder due to known physiological condition] Onset: 1 06-21-2023 Chronic Diabetes mellitus without complication (9 sources) Type 2 diabetes mellitus without complications; [...] WITHOUT ESOPHAGITIS] Onset: 3 Chronic Essential hypertension (5 sources) Essential (primary) hypertension; Translations: [Hypertensive disorder] Onset: 9 06-21-2023 Chronic Headache; including migraine (4 sources) Migraine; Translations: [Migraine, unspecified, not intractable, without status migrainosus] Onset: 7 06-21-2023 Chronic Hyperplasia of prostate (1 source) Benign prostatic hypertrophy without outflow obstruction; Translations: [Benign prostatic hyperplasia without lower urinary tract symptoms] Onset: 2 Chronic Miscellaneous mental health disorders (6 sources) Primary insomnia; Translations: [Primary insomnia] Onset: 3 03-11-2023 Chronic Mood disorders (1 source) Major depressive disorder, single episode, unspecified; Translations: [MARITZA DEPRESS D/O SINGLE EPIS UNS] Onset: 2 Chronic Mood disorders (1 source) Mood disorders; Translations: [DEPRESSION UNSPECIFIED] Onset: 3 Osteoarthritis (5 sources) Unspecified osteoarthritis, unspecified site; Translations: [Arthritis of right acromioclavicular joint] Onset: 8 06-21-2023 Chronic Other aftercare (1 source) USP (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; Translations: [ALF 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 ASPIRIN] Onset: 3 Episodic Other aftercare (1 source) Other sr. social media & mobile manager (current) drug therapy; Translations: [OTH LABEL FUSER TENDER CURRENT DRUG THERAPY] Onset: 3 Episodic [...] Onset: 3 Episodic Other male genital disorders (4 sources) Secondary erectile dysfunction; Translations: [Male erectile dysfunction, [...] Onset: 2 Chronic Other nervous system disorders (4 sources) Carpal tunnel syndrome of right wrist; Translations: [Carpal tunnel syndrome, right upper limb] Onset: 8 06-21-2023 Chronic Other nervous system disorders (6 sources) Lesion of ulnar nerve, right upper limb; Translations: [Lesion of ulnar nerve] Onset: 3 06-21-2023 Chronic Other nervous system disorders (4 sources) Chronic pain; Translations: [Other chronic pain] Onset: 8 06-21-2023 Chronic Other nervous system disorders (4 sources) Ulnar nerve entrapment; Translations: [Lesion of ulnar nerve, unspecified upper limb] Onset: 3 06-21-2023 Chronic Residual codes; unclassified (1 source) Sleep apnea, unspecified; Translations: [SLEEP APNEA UNSPECIFIED] Onset: 3 Chronic Residual codes; unclassified (7 sources) Daytime somnolence; Translations: [Other hypersomnia] Onset: 3 03-11-2023 Chronic Residual codes; unclassified (6 sources) Obstructive sleep apnea syndrome; Translations: [Obstructive sleep apnea (adult) (pediatric)] Onset: 3 06-21-2023 Chronic Spondylosis; intervertebral disc disorders; other back problems (16 sources) Cervical disc disorder; Translations: [Cervical disc [...] Date Episodic/Chronic Coma; stupor; and brain damage (4 sources) Clouded consciousness; Translations: [Stupor] Onset: 03-03-2012 06-21-2023 Episodic E Codes: Natural/environment (1 source) Exposure to other specified factors, initial encounter; Translations: [EXPOSURE OTHER SPEC FACTORS INITIAL] Onset: 04-27-2022 Episodic Gastritis and duodenitis (4 sources) Gastritis; Translations: [Gastritis, unspecified, without bleeding] Onset: 05-09-2013 06-21-2023 Episodic Heart valve disorders (4 sources) Systolic murmur; Translations: [Cardiac murmur, unspecified] Onset: 06-24-2023 06-24-2023 Episodic Immunizations and screening for infectious disease (1 source) Encounter for immunization; Translations: [ENCOUNTER FOR IMMUNIZATION] Onset: 04-27-2022 Episodic Inflammatory conditions of male genital organs (4 sources) Inflammatory disorders of scrotum; Translations: [INFLAMMATORY DISORDERS OF SCROTUM] Onset: 01-04-2022 Episodic Malaise and fatigue (4 sources) Fatigue; Translations: [Other fatigue] Onset: 03-03-2012 06-21-2023 Episodic Noninfectious gastroenteritis (4 sources) Gastroenteritis; Translations: [Noninfective gastroenteritis and colitis, unspecified] Onset: 04-10-2015 06-21-2023 Episodic Nonspecific chest pain (8 sources) Chest discomfort; Translations: [Other chest pain] Onset: 11-30-2011 06-21-2023 Episodic Open wounds of extremities (4 sources) Puncture wound without foreign body, left foot, initial encounter; Translations: [PUNCT WOUND W/O FB LT FOOT INITIAL] Onset: 03-26-2022 Episodic Other circulatory disease (4 sources) Capillary hemangioma; Translations: [Nevus, non-neoplastic] Onset: 05-28-2008 06-21-2023 Episodic Other connective tissue disease (4 sources) Spasm of cervical paraspinous muscle; Translations: [Other muscle spasm] Onset: 03-11-2023 03-11-2023 Episodic Other connective tissue disease (4 sources) Bursitis; Translations: [Bursopathy, unspecified] Onset: 02-27-2011 06-21-2023 Episodic Other connective tissue disease (4 sources) Foot pain; Translations: [Pain in unspecified foot] Onset: 10-07-2012 06-21-2023 Episodic Other connective tissue disease (4 sources) Muscle pain; Translations: [Myalgia, unspecified site] Onset: 12-02-2012 06-21-2023 Episodic Other connective tissue disease (4 sources) Impingement syndrome of shoulder region; Translations: [Impingement syndrome of unspecified shoulder] Onset: 01-25-2003 06-21-2023 Episodic Other connective tissue disease (4 sources) Lateral epicondylitis; Translations: [Lateral epicondylitis, unspecified elbow] Onset: 06-24-2023 06-24-2023 Episodic Other connective tissue disease (4 sources) Other symptoms and signs involving the musculoskeletal system; Translations: [Other musculoskeletal symptoms referable to limbs] Onset: 12-29-2023 12-29-2023 Episodic Other lower respiratory disease (4 sources) Dyspnea; Translations: [Dyspnea, unspecified] Onset: 11-30-2011 06-21-2023 Episodic Other nervous system disorders (5 sources) Numbness of upper limb; Translations: [Anesthesia of skin] Onset: 12-29-2023 08-25-2023 Episodic Other non-traumatic joint disorders (4 sources) Ankle edema; Translations: [Effusion, unspecified ankle] Onset: 05-15-2014 06-21-2023 Episodic Other non-traumatic joint disorders (4 sources) Joint pain; Translations: [Pain in unspecified joint] Onset: 09-03-2009 06-21-2023 Episodic Other screening for suspected conditions (not mental disorders or infectious disease) (14 sources) Encounter for screening for malignant neoplasm of prostate; Translations: [Elevated prostate specific antigen [PSA]] Onset: 03-13-2022 Episodic Other skin disorders (4 sources) Excessive sweating; Translations: [Generalized hyperhidrosis] Onset: 12-18-2015 06-21-2023 Episodic Other skin disorders (4 sources) Senile hyperkeratosis; Translations: [Actinic keratosis] Onset: 03-28-2015 06-21-2023 Episodic Other skin disorders (4 sources) Hyperhidrosis; Translations: [Generalized hyperhidrosis] Onset: 06-24-2023 06-24-2023 Episodic Other upper respiratory infections (4 sources) Upper respiratory infection; Translations: [Acute upper respiratory infection, unspecified] Onset: 12-05-2010 06-21-2023 Episodic Skin and subcutaneous tissue infections (4 sources) Cellulitis; Translations: [Cellulitis, unspecified] Onset: 03-31-2013 06-21-2023 Episodic Spondylosis; intervertebral disc disorders; other back problems (13 sources) Cervical disc prolapse with radiculopathy; Translations: [Cervical disc disorder with radiculopathy, unspecified cervical region] Onset: 10-11-2018 08-25-2023 Episodic Urinary tract infections (4 sources) Urinary tract infectious disease; Translations: [Urinary tract infection, site not specified] Onset: 06-28-2014 06-21-2023 Episodic Results Test Name Value Interpretation Reference Range Facility [facility] 01-03-2024 L Specimen: [id number] Received: 01/03/24 Status: SOUT Re Num: [id number] Spec Type: Surgical Subm Dr: Trey Vallejo DPM, MS Tissues: A Bone Fragments - Pathologic Fracture (PROXIMAL PHALANX RIGHT HALLU) Procedures: HE/2, Gross/Micro L5, Decalcification Age/ Patient Sex Location Account Attending Physician Matty Garces 53/M LABELL [id number] Trey Vallejo DPM, MS SPEC NUM: [id number] RECD: 01/03/24 STATUS: [facility]NI [facility] NUM: [id number] SOFY: 01/03/[address] [facility] [address]: Trey Vallejo DPM, MS ENTERED: 01/03/[address] [facility] [address]: Ayesha Lundberg SPEC TYPE: Surgical [...] Sectioning reveals unremarkable yellow, spongy bone matrix. Publicity Manager sections are submitted in A1 following decal. Clinical history: Non-pressure chronic ulcer . Right hallux IPJ arthroplasty with wound debridement and graft application TW Specimen: [id number] Received: 01/03/24 Status: GIOVANNI Ophelia Num: [id number] Spec Type: Surgical Subm Dr: Trey Vallejo DPM, MS Tissues: A Bone Fragments - Pathologic Fracture (PROXIMAL PHALANX RIGHT HALLU) Procedures: HE/2, Gross/Micro L5, Decalcification Patient: Matty Garces [id number] (Continued) Specimen: [id number] Received: 01/03/24 (Continued) Signed (signature on file) Viral Rae MD 01/06/24 1838 Specimen: [id number] Received: 01/03/24 Status: GIOVANNI Jacinto Num: [id number] Spec Type: Surgical Subm Dr: Trey Vallejo,DPJose Eduardo, MS Tissues: A Bone Fragments - Pathologic Fracture (PROXIMAL PHALANX RIGHT HALLU) Procedures: HE/2, Gross/Micro L5, Decalcification Patient: Matty Garces [id number] (Continued) Specimen: [id number] Received: 01/03/24 (Continued) CPT Codes 14613 Specimen: [id number] Received: 01/03/24 Status: GIOVANNI Jacinto Num: [id number] Spec Type: Surgical Subm Dr: Trey Vallejo,CHINO, MS Tissues: A Bone Fragments - Pathologic Fracture (PROXIMAL PHALANX RIGHT HALLU) Procedures: HE/2, Gross/Micro L5, Decalcification Patient: Matty Garces [id number] (Continued) Signed (signature on file) Kuldip-Christopher Rae MD 01/06/24 1838 Normal [facility] CT CSPINE WO CONon [...] Anterior corpectomy at C5-C6. Electronically authenticated by: XolaOR SAID Date: 2022-12-06 06:37 Normal [facility] CT FACIAL BONES WO CONon CT [...] maxillary sinus mucoperiosteal thickening Electronically authenticated by: XolaOR SAID Date: 2022-12-06 06:41 Normal [facility] CT HEAD WO CONon 12-06-2022 CT [...] ANGEL JORDAN Date: 2022-12-06 06:39 Normal [facility] XR ELBOW RT MIN 3 VIEWSon XR ELBOW RT MIN 3 VIEWS Exam: Radiographs: XR ELBOW RT MIN 3 VIEWS Reason for exam: Elbow pain Comparison: None IMPRESSION: Right elbow degenerative changes. Olecranon spur. Remainder of the right elbow is unremarkable. Electronically authenticated by: MICHAEL CASANOVA Date: 2022-12-06 07:22 Normal [facility] XR FOREARM RT 2Von XR FOREARM RT 2V Exam: Radiographs: XR FOREARM RT 2V Reason for exam: Forearm pain Comparison: None IMPRESSION: Mild degenerative changes in the right elbow and wrist. Right forearm is otherwise unremarkable. Electronically authenticated by: MICHAEL CASANOVA Date: 2022-12-06 08:07 Normal [facility] PSA, FREE AND TOTAL RATIOon 12-03-2022 % Free PSA 9.0 % Normal [facility] Comment on above: Result Comment: The [...] By: #### P SAFREE #### [facility] [address] [place] [address] Dr. Shabnam Rae Prostate specific Ag [Mass/Vol] 5.9 ng/mL Critically high 0.0-4.0 [facility] Comment on above: Result Comment: Tanja BRANTLEY methodology. . According to the [employer] [employer], Serum PSA should decrease and [...] By: #### P SAFREE #### [facility] [address] [address] [address] Shabnam Rae PSA, Free 0.53 ng/mL Normal N/A [facility] Comment on above: Result Comment: Tanja ayala ECLIA methodology. Performed By: #### P SAFREE #### [facility] [address] [address] [address] Shabnam Rae INSULINon 12-02-2022 Insulin 20.2 uIU/mL Normal 2.6-24.9 [facility] Comment on above: Performed By: #### P SASC #### [facility] [address] [address] [address] Shabnam Rae TESTOSTERONE, TOTALon 2022 Testosterone [Mass/Vol] 256 ng/dL Critically low 264-916 [facility] Comment on above: Result Comment: Adul t male reference interval is based on a population of healthy nonobese males (BMI <30) between 19 and 39 years old. adia Ch.al. JCEM 2017,102;[id number]. PMID: [id number]. Performed By: #### P SASC #### [facility] [address] [address] [address] Shabnam Rae CBC AUTO DIFFon 12-01-2022 BASO # 0.1 103/ul Normal 0.0-0.1 [facility] Comment on above: Performed By: #### P SASC #### [facility] [address] [address] [address] Shabnam Rae Basophils/100 WBC (Bld) 1.0 % Normal 0.2-2.0 [facility] Comment on above: Performed By: #### P SASC #### [facility] [address] [place] [address] Dr. Shabnam Rae EO # 0.1 103/ul Normal 0.0-0.7 [facility] Comment on above: Performed By: #### P SASC #### [facility] [address] [place] [address] Dr. Shabnam Rae Eosinophils/100 WBC (Bld) 1.8 % Normal 0.9-7.0 [facility] Comment on above: Performed By: #### P SASC #### [facility] [address] [place] [address] Dr. Shabnam Rae Erythrocyte distribution width (RBC) [Ratio] 14.8 % Normal 11.0-15.0 [facility] Comment on above: Performed By: #### P SASC #### [facility] [address] [place] [address] Dr. Shabnam Rae Hematocrit (Bld) [Volume fraction] 49.9 % Normal 42.0-54.0 [facility] Comment on above: Performed By: #### P SASC #### [facility] [address] [place] [address] Dr. Shabnam Rae Hemoglobin (Bld) [Mass/Vol] 16.0 g/dL Normal 14.0-18.0 [facility] Comment on above: Performed By: #### P SASC #### [facility] [address] [place] [address] Dr. Shabnam Rae IG # 0.04 10e3/ul Critically high 0.00-0.03 [facility] Comment on above: Performed By: #### P SASC #### [facility] [address] [place] [address] Dr. Shabnam Rae IG % 0.6 % Critically high 0.0-0.5 [facility] Comment on above: Performed By: #### P SASC #### [facility] [address] [place] [address] Dr. Shabnam Rae LYMPH # 1.0 103/ul Critically low 1.2-3.8 [facility] Comment on above: Performed By: #### P SASC #### [facility] [address] [place] [address] Dr. Shabnam Rae Lymphocytes/100 WBC (Bld) 16.2 % Critically low 20.5-60.0 [facility] Comment on above: Performed By: #### P SASC #### [facility] [address] [place] [address] Dr. Shabnam Rae MANUAL DIFF REQ NO Normal [facility] Comment on above: Performed By: #### P SASC #### [facility] [address] [place] [address] Dr. Shabnam Rae MCH (RBC) [Entitic mass] 27.7 pg Normal 25.9-34.0 [facility] Comment on above: Performed By: #### P SASC #### [facility] [address] [place] [address] Dr. Shabnam Rae MCHC (RBC) [Mass/Vol] 32.1 g/dL Normal 29.9-35.2 [facility] Comment on above: Performed By: #### P SASC #### [facility] [address] [place] [address] Dr. Shabnam Rae MCV (RBC) [Entitic vol] 86.3 fL Normal 80.0-94.0 [facility] Comment on above: Performed By: #### P SASC #### [facility] [address] [place] [address] Dr. Shabnam Rae MONO # 0.5 103/ul Normal 0.3-0.8 [facility] Comment on above: Performed By: #### P SASC #### [facility] [address] [place] [address] Dr. Shabnam Rae Monocytes/100 WBC (Bld) 7.6 % Normal 1.7-12.0 [facility] Comment on above: Performed By: #### P SASC #### [facility] [address] [place] [address] Dr. Sahbnam Rae NEUT # 4.6 103/ul Normal 1.4-6.5 [facility] Comment on above: Performed By: #### P SASC #### [facility] [address] [address] [address] Shabnam Rae Neutrophils/100 WBC (Bld) 72.8 % Normal 43.0-75.0 [facility] Comment on above: Performed By: #### P SASC #### [facility] [address] [address] [address] Shabnam Rae Platelet mean volume (Bld) [Entitic vol] 9.8 fL Normal 9.5-13.5 [facility] Comment on above: Performed By: #### P SASC #### [facility] [address] [place] [address] Dr. Shabnam Rae PLT 203 103/ul Normal 150-450 [facility] Comment on above: Performed By: #### P SASC #### [facility] [address] [place] [address] Dr. Shabnam Rae RBC 5.78 106/ul Normal 4.70-6.10 [facility] Comment on above: Performed By: #### P SASC #### [facility] [address] [place] [address] Dr. Shabnam Rae WBC 6.3 103/ul Normal 4.0-11.0 [facility] Comment on above: Performed By: #### P SASC #### [facility] [address] [place] [address] Dr. Shabnam Rae FREE THYROXINE INDEX T7on FTI 2.05 Normal 1.30-4.50 [facility] Comment on above: Performed By: #### T SH, CMP, LIPID, T7, URIC #### [facility] [address] [place] [address] Dr. Shabnam Rae T3U 33.0 % Normal 33.0-40.0 [facility] Comment on above: Performed By: #### T SH, CMP, LIPID, T7, URIC #### [facility] [address] [place] [address] Dr. Shabnam Rae T4 [Mass/Vol] 6.20 ug/dL Normal 4.50-12.10 [facility] Comment on above: Performed By: #### T SH, CMP, LIPID, T7, URIC #### [facility] [address] [address] [address] Shabnam Rae GLYCOHEMOGLOBIN A1Con 2022 ADA RECOMMENDATION SEE BELOW Normal [facility] Comment on above: Result Comment: ADA RECOMMENDED LIMIT 4.0 - 6.0 ADA THERAPEUTIC TARGET < 7.0 ACTION SUGGESTED > 7.0 Performed By: #### P SASC #### [facility] [address] [address] [address] Shabnam Rae Glucose [Mass/Vol] 114 mg/dL Normal [facility] Comment on above: Performed By: #### P SASC #### [facility] [address] [address] [address] Shabnam Rae HbA1c (Bld) [Mass fraction] 5.6 % Normal 4.5-6.2 [facility] Comment on above: Performed By: #### P SASC #### [facility] [address] [address] [address] Shabnam Rae LIPID PROFILEon 12-01-2022 CHOL-HDL RATIO NORM SEE BELOW Normal [facility] Comment on above: Result Comment: 3.3 - 4.4 LOW RISK 4.4 - 7.1 AVERAGE RISK 7.1 - 11.0 MODERATE RISK >11.0 HIGH RISK Performed By: #### T SH, CMP, LIPID, T7, URIC #### [facility] [address] [address] [address] Shabnam Rae Cholesterol [Mass/Vol] 176 mg/dL Normal <=200 [facility] Comment on above: Performed By: #### T SH, CMP, LIPID, T7, URIC #### [facility] [address] [address] [address] Shabnam Rae Cholesterol in HDL [Mass/Vol] 48 mg/dL Normal 40-60 [facility] Comment on above: Performed By: #### T SH, CMP, LIPID, T7, URIC #### [facility] [address] [address] [address] Shabnam Rae Cholesterol in LDL [Mass/Vol] 108.2 mg/dL Normal [facility] Comment on above: Performed By: #### T SH, CMP, LIPID, T7, URIC #### [facility] [address] [address] [address] Shabnam Rae Cholesterol.total/Ch olesterol in HDL [Mass ratio] 3.7 {ratio} Normal [facility] Comment on above: Performed By: #### T SH, CMP, LIPID, T7, URIC #### [facility] [address] [address] [address] Shabnam Rae HDL NORMAL > or = 60 mg/dl - LOW CARDIOVASCULAR RISK <40 mg/dl - HIGH CARDIOVASCULAR RISK Normal [facility] Comment on above: Performed By: #### T SH, CMP, LIPID, T7, URIC #### [facility] [address] [address] [address] Shabnam Rae LDL CALC NORMAL SEE BELOW Normal [facility] Comment on above: Result Comment: <100 mg/dl OPTIMAL 100 - 129 mg/dl NEAR OR ABOVE OPTIMAL 130 - 159 mg/dl BORDERLINE HIGH 160 - 189 mg/dl HIGH >190 mg/dl VERY HIGH Performed By: #### T SH, CMP, LIPID, T7, URIC #### [facility] [address] [address] [address] Shabnam Rae Triglyceride [Mass/Vol] 99 mg/dL Normal <=150 [facility] Comment on above: Performed By: #### T SH, CMP, LIPID, T7, URIC #### [facility] [address] [address] [address] Shabnam Rae VLDL CALC 19.8 mg/dL Normal [facility] Comment on above: Performed By: #### T SH, CMP, LIPID, T7, URIC #### [facility] [address] [address] [address] Shabnam Rae PROF 14(COMP METB)on 023 Albumin [Mass/Vol] 4.1 g/dL Normal 3.4-5.0 [facility] Comment on above: Performed By: #### T SH, CMP, LIPID, T7, URIC #### [facility] [address] [address] [address] Shabnam Rae Albumin/Globulin [Mass ratio] 1.1 {ratio} Normal [facility] Comment on above: Performed By: #### T SH, CMP, LIPID, T7, URIC #### [facility] [address] [address] [address] Shabnam Rae ALP [Catalytic activity/Vol] 101 U/L Normal 46-116 [facility] Comment on above: Performed By: #### T SH, CMP, LIPID, T7, URIC #### [facility] [address] [place] [address] Dr. Shabnam Rae ALT [Catalytic activity/Vol] 26 U/L Normal 16-63 [facility] Comment on above: Performed By: #### T SH, CMP, LIPID, T7, URIC #### [facility] [address] [place] [address] Dr. Shabnam Rae Anion gap [Moles/Vol] 10.1 mmol/L Normal [facility] Comment on above: Performed By: #### T SH, CMP, LIPID, T7, URIC #### [facility] [address] [place] [address] Dr. Shabnam Rea AST [Catalytic activity/Vol] 19 U/L Normal 15-37 [facility] Comment on above: Performed By: #### T SH, CMP, LIPID, T7, URIC #### [facility] [address] [address] [address] Shabnam Rae Bilirubin [Mass/Vol] 0.8 mg/dL Normal 0.2-1.0 [facility] Comment on above: Performed By: #### T SH, CMP, LIPID, T7, URIC #### [facility] [address] [place] [address] Dr. Shabnam Rae Calcium [Mass/Vol] 9.5 mg/dL Normal 8.5-10.1 [facility] Comment on above: Performed By: #### T SH, CMP, LIPID, T7, URIC #### [facility] [address] [address] [address] Shabnam Rae Chloride [Moles/Vol] 102 mmol/L Normal 98-107 [facility] Comment on above: Performed By: #### T SH, CMP, LIPID, T7, URIC #### [facility] [address] [address] [address] Shabnam Rae CO2 [Moles/Vol] 32.4 mmol/L Critically high 21.0-32.0 [facility] Comment on above: Performed By: #### T SH, CMP, LIPID, T7, URIC #### [facility] [address] [address] [address] Shabnam Rae Creatinine [Mass/Vol] 1.00 mg/dL Normal 0.70-1.30 [facility] Comment on above: Performed By: #### T SH, CMP, LIPID, T7, URIC #### [facility] [address] [address] [address] Shabnam Rae EGFR-AF [place] >60 Normal >=60 [facility] Comment on above: Performed By: #### T SH, CMP, LIPID, T7, URIC #### [facility] [address] [address] [address] Shabnam Rae EGFR-NON AF [place] >60 Normal >=60 [facility] Comment on above: Performed By: #### T SH, CMP, LIPID, T7, URIC #### [facility] [address] [address] [address] Shabnam Rae Globulin (S) [Mass/Vol] 3.8 g/dL Normal [facility] Comment on above: Performed By: #### T SH, CMP, LIPID, T7, URIC #### [facility] [address] [address] [address] Shabnam Rae Glucose [Mass/Vol] 94 mg/dL Normal 74-106 [facility] Comment on above: Performed By: #### T SH, CMP, LIPID, T7, URIC #### [facility] [address] [address] [address] Shabnam Rae Potassium [Moles/Vol] 3.5 mmol/L Normal 3.5-5.1 [facility] Comment on above: Performed By: #### T SH, CMP, LIPID, T7, URIC #### [facility] [address] [place] [address] Dr. Shabnam Rae Protein [Mass/Vol] 7.9 g/dL Normal 6.4-8.2 [facility] Comment on above: Performed By: #### T SH, CMP, LIPID, T7, URIC #### [facility] [address] [place] [address] Dr. Shabnam Rae Sodium [Moles/Vol] 141 mmol/L Normal 136-145 [facility] Comment on above: Performed By: #### T SH, CMP, LIPID, T7, URIC #### [facility] [address] [place] [address] Dr. Shabnam Rae Urea nitrogen [Mass/Vol] 15.0 mg/dL Normal 7.0-18.0 [facility] Comment on above: Performed By: #### T SH, CMP, LIPID, T7, URIC #### [facility] [address] [place] [address] Dr. Shabnam Rae Urea nitrogen/Creatinine [Mass ratio] 15.0 mg/mg Normal [facility] Comment on above: Performed By: #### T SH, CMP, LIPID, T7, URIC #### [facility] [address] [place] [address] Dr. Shabnam Rae TSHon 12-01-2022 TSH 1.504 uIU/mL Normal 0.358-3.740 [facility] Comment on above: Performed By: #### T SH, CMP, LIPID, T7, URIC #### [facility] [address] [place] [address] Dr. Shabnam Rae URIC ACID SERUMon 12-01-2022 Urate [Mass/Vol] 6.9 mg/dL Normal 3.5-7.2 [facility] Comment on above: Performed By: #### T SH, CMP, LIPID, T7, URIC #### [facility] [address] [place] [address] Dr. Shabnam Rae TESTOSTERONE, TOTALon 2021 Testosterone [Mass/Vol] 244 ng/dL Critically low 264-916 [facility] Comment on above: Result Comment: Adul t male reference interval is based on a population of healthy nonobese males (BMI <30) between 19 and 39 years old. Dima, et.al. EM 2017,102;2241-3808. PMID: [id number]. Performed By: #### P SAFREE #### [facility] [address] [place] [address] Dr. Shabnam Rae TESTOSTERONE, FREE,DIRECT, T OTALon 03-16-2022 Free Testosterone(Direct) 2.1 pg/mL Critically low 7.2-24.0 [facility] Comment on above: Result Comment: Perf ormed at: BN Performed By: #### C VDTBH #### [facility] [address] [place] [address] Dr. Shabnam Rae Testosterone [Mass/Vol] 252 ng/dL Critically low 264-916 [facility] Comment on above: Result Comment: Adul t male reference interval is based on a population of healthy nonobese males (BMI <30) between 19 and 39 years old. Travison, et.al. JCEM 2017,102;1808-9561. PMID: [id number]. Performed at: CB Performed By: #### C VDTBH #### [facility] [address] [place] [address] Dr. Shabnam Rae Formson 02-26-2022 Forms [id number] 7#1.00CD:127 Normal [facility] Screenson 02-26-2022 Screens [id number] 7#1.00CD:127 Normal [facility] Screens [id number] #1.00CD:127 Normal [facility] Urology Office/Clinic Noteon 02-26-2022 Urology [...] Instructions: Patient Education Hydrocele, Adult I, Helen Lueng, personally scribed for Dr. Grullon on 02/25/2022 11:15:58. . Documentation recorded by the scribe, Helen Leung, accurately reflects the services(s) I performed and decisions made by me. Authenticated by Dr. Grullon on 02/26/2022 00:19:46. Problem List/Past Medical History Ongoing No qualifying data (more content not included)... Normal [facility] Comment on above: Result Comment: Elec tronically Signed By: Viola Grullon MD\.br\Date and Time Signed: 02/26/22 00:20 EDT\.br\Electronically Co-Signed By: Helen Leung\.br\Date and Time Co-Signed: 02/25/22 11:16 EDT Ambulatory Visit Summaryon 0 02-25-2022 Ambulatory Visit Summary SHERI MATTY T :1970 Visit Date:02/25/2022 Ambulatory Visit Instructions Your Diagnosis Hydrocele Varicocele BPH without urinary obstruction Tests Performed Urnls Dip Stick Auto w/o Microscopy POC 69148 Your Care Team Attending Physician - Viola [...] Urnls Dip Stick Auto w/o Microscopy POC 96816 (02/25/2022) Bilirubin Urine Dipstick - Negative Blood Urine Dipstick - Negative Glucose Urine Dipstick - Negative Ketones Urine Dipstick - Negative Leukocytes Urine Dipstick - Negative Nitrite Urine Dipstick - Negative Protein Urine Dipstick - Negative Specific [place] Urine Dipstick - >=1.030 Urine Appearance Urine [...] the hydrocele for any changes. ? Take fcxd-dlo-rcvqvlj and prescription medicines only as told by [...] intended t (more content not included)... Normal [facility] Patient Educationon 02-26-20 Patient Education Urology [...] the hydrocele for any changes. ? Take oobj-chw-lcccdbk and prescription medicines only as told by [...] 02/17/2011 Document Revised: 09/10/2018 Document Reviewed: 09/10/2018 [employer] Patient Education ? 2019 [employer]. Normal [facility] ED Note-Physicianon 02-04-20 ED Note-Physician [id number] 62#1.00CD:127 Normal [facility] RAD - Ultrasound Reporton RAD - Ultrasound Report [id number] #1.00CD:127 Normal [facility] RAD - CT Reporton 02-02-2022 RAD - CT Report [id number] 55#1.00CD:127 [facility] RAD - CT Report [id number] 75#1.00CD:127 Normal [facility] CBC AUTO DIFFon 01-05-2022 BASO # 0.0 103/ul Normal 0.0-0.1 [facility] Comment on above: Performed By: #### P SAFREE #### [facility] [address] [place], [place] [address] Dr. Shabnam Rae Basophils/100 WBC (Bld) 0.6 % Normal 0.2-2.0 [facility] Comment on above: Performed By: #### P SAFREE #### [facility] [address] [address] [address] Shabnam Rae EO # 0.1 103/ul Normal 0.0-0.7 [facility] Comment on above: Performed By: #### P SAFREE #### [facility] [address] [address] [address] Shabnam Rae Eosinophils/100 WBC (Bld) 2.1 % Normal 0.9-7.0 [facility] Comment on above: Performed By: #### P SAFREE #### [facility] [address] [place] [address] Dr. Shabnam Rae Erythrocyte distribution width (RBC) [Ratio] 13.1 % Normal 11.0-15.0 [facility] Comment on above: Performed By: #### P SAFREE #### [facility] [address] [place] [address] Dr. Shabnam Rae Hematocrit (Bld) [Volume fraction] 43.1 % Normal 42.0-54.0 [facility] Comment on above: Performed By: #### P SAFREE #### [facility] [address] [place] [address] Dr. Shabnam Rae Hemoglobin (Bld) [Mass/Vol] 13.7 g/dL Critically low 14.0-18.0 [facility] Comment on above: Performed By: #### P SAFREE #### [facility] [address] [place] [address] Dr. Shabnam Rae IG # 0.04 10e3/ul Critically high 0.00-0.03 [facility] Comment on above: Performed By: #### P SAFREE #### [facility] [address] [place] [address] Dr. Shabnam Rae IG % 0.6 % Critically high 0.0-0.5 [facility] Comment on above: Performed By: #### P SAFREE #### [facility] [address] [place] [address] Dr. Shabnam Rae LYMPH # 0.9 103/ul Critically low 1.2-3.8 [facility] Comment on above: Performed By: #### P SAFREE #### [facility] [address] [address] [address] Shabnam Rae Lymphocytes/100 WBC (Bld) 13.1 % Critically low 20.5-60.0 [facility] Comment on above: Performed By: #### P SAFREE #### [facility] [address] [address] [address] Shabnam Rae MANUAL DIFF REQ NO Normal [facility] Comment on above: Performed By: #### P SAFREE #### [facility] [address] [address] [address] Shabnam Rae MCH (RBC) [Entitic mass] 29.5 pg Normal 25.9-34.0 [facility] Comment on above: Performed By: #### P SAFREE #### [facility] [address] [place] [address] Dr. Shabnam Rae MCHC (RBC) [Mass/Vol] 31.8 g/dL Normal 29.9-35.2 [facility] Comment on above: Performed By: #### P SAFREE #### [facility] [address] [place] [address] Dr. Shabnam Rae MCV (RBC) [Entitic vol] 92.9 fL Normal 80.0-94.0 [facility] Comment on above: Performed By: #### P SAFREE #### [facility] [address] [place] [address] Dr. Shabnam Rae MONO # 0.4 103/ul Normal 0.3-0.8 [facility] Comment on above: Performed By: #### P SAFREE #### [facility] [address] [place] [address] Dr. Shabnam Rae Monocytes/100 WBC (Bld) 5.4 % Normal 1.7-12.0 [facility] Comment on above: Performed By: #### P SAFREE #### [facility] [address] [place] [address] Dr. Shabnam Rae NEUT # 5.2 103/ul Normal 1.4-6.5 [facility] Comment on above: Performed By: #### P SAFREE #### [facility] [address] [address] [address] Shabnam Rae Neutrophils/100 WBC (Bld) 78.2 % Critically high 43.0-75.0 [facility] Comment on above: Performed By: #### P SAFREE #### [facility] [address] [address] [address] Shabnam Rae Platelet mean volume (Bld) [Entitic vol] 10.9 fL Normal 9.5-13.5 [facility] Comment on above: Performed By: #### P SAFREE #### [facility] [address] [address] [address] Shabnam Rae PLT 153 103/ul Normal 150-450 [facility] Comment on above: Performed By: #### P SAFREE #### [facility] [address] [address] [address] Shabnam Rae RBC 4.64 106/ul Critically low 4.70-6.10 [facility] Comment on above: Performed By: #### P SAFREE #### [facility] [address] [address] [address] Shabnam Rae WBC 6.6 103/ul Normal 4.0-11.0 [facility] Comment on above: Performed By: #### P SAFREE #### [facility] [address] [place] [address] Dr. Shabnam Rae CRPon 01-05-2022 CRP 0.9 mg/dL Normal <=1.0 [facility] Comment on above: Performed By: #### P SAFREE #### [facility] [address] [address] [address] Shabnam Rae PROF 14(COMP METB)on 022 Albumin [Mass/Vol] 3.6 g/dL Normal 3.4-5.0 [facility] Comment on above: Performed By: #### P SAFREE #### [facility] [address] [place] [address] Dr. Shabnam Rae Albumin/Globulin [Mass ratio] 1.0 {ratio} Normal [facility] Comment on above: Performed By: #### P SAFREE #### [facility] [address] [address] [address] Shabnam Rae ALP [Catalytic activity/Vol] 114 U/L Normal 46-116 [facility] Comment on above: Performed By: #### P SAFREE #### [facility] [address] [address] [address] Shabnam Rae ALT [Catalytic activity/Vol] 26 U/L Normal 16-63 [facility] Comment on above: Performed By: #### P SAFREE #### [facility] [address] [address] [address] Shabnam Rae Anion gap [Moles/Vol] 9.3 mmol/L Normal [facility] Comment on above: Performed By: #### P SAFREE #### [facility] [address] [place] [address] Dr. Shabnam Rae AST [Catalytic activity/Vol] 19 U/L Normal 15-37 [facility] Comment on above: Performed By: #### P SAFREE #### [facility] [address] [address] [address] Shabnam Rae Bilirubin [Mass/Vol] 0.5 mg/dL Normal 0.2-1.0 [facility] [facility] Comment on above: Performed By: #### P SAFREE #### [facility] [address] [place] [address] Dr. Shabnam Rae Calcium [Mass/Vol] 8.9 mg/dL Normal 8.5-10.1 [facility] Comment on above: Performed By: #### P SAFREE #### [facility] [address] [address] [address] Shabnam Rae Chloride [Moles/Vol] 106 mmol/L Normal 98-107 [facility] Comment on above: Performed By: #### P SAFREE #### [facility] [address] [address] [address] Shabnam Rae CO2 [Moles/Vol] 30.7 mmol/L Normal 21.0-32.0 [facility] Comment on above: Performed By: #### P SAFREE #### [facility] [address] [place] [address] Dr. Shabnam Rae Creatinine [Mass/Vol] 1.15 mg/dL Normal 0.70-1.30 [facility] Comment on above: Performed By: #### P SAFREE #### [facility] [address] [place] [address] Dr. Shabnam Rae EGFR-AF [place] >60 Normal >=60 [facility] Comment on above: Performed By: #### P SAFREE #### [facility] [address] [place] [address] Dr. Shabnam Rae EGFR-NON AF [place] >60 Normal >=60 [facility] Comment on above: Performed By: #### P SAFREE #### [facility] [address] [place] [address] Dr. Shabnam Rae Globulin (S) [Mass/Vol] 3.6 g/dL Normal [facility] Comment on above: Performed By: #### P SAFREE #### [facility] [address] [place] [address] Dr. Shabnam Rae Glucose [Mass/Vol] 117 mg/dL Critically high 74-106 [facility] Comment on above: Performed By: #### P SAFREE #### [facility] [address] [place] [address] Dr. Shabnam aRe Potassium [Moles/Vol] 4.0 mmol/L Normal 3.5-5.1 [facility] Comment on above: Performed By: #### P SAFREE #### [facility] [address] [place] [address] Dr. Shabnam Rae Protein [Mass/Vol] 7.2 g/dL Normal 6.1-8.2 [facility] Comment on above: Performed By: #### P SAFREE #### [facility] [address] [place] [address] Dr. Shabnam Rae Sodium [Moles/Vol] 142 mmol/L Normal 136-145 [facility] Comment on above: Performed By: #### P SAFREE #### [facility] [address] [place] [address] Dr. Shabnam Rae Urea nitrogen [Mass/Vol] 15.0 mg/dL Normal 7.0-18.0 [facility] Comment on above: Performed By: #### P SAFREE #### [facility] [address] [place] [address] Dr. Shabnam Rae Urea nitrogen/Creatinine [Mass ratio] 13.0 mg/mg Normal [facility] Comment on above: Performed By: #### P SAFREE #### [facility] [address] [address] [address] Shabnam Rae US SCROTUMon 01-05-2022 US [...] Date: 2022-01-05 08:48 Normal [facility] CBC AUTO DIFFon 01-04-2022 BASO # 0.1 103/ul Normal 0.0-0.1 [facility] Comment on above: Performed By: #### C BC #### [facility] [address] [place] [address] Dr. Shabnam Rae Basophils/100 WBC (Bld) 0.8 % Normal 0.2-2.0 [facility] Comment on above: Performed By: #### C BC #### [facility] [address] [place] [address] Dr. Shabnam Rae EO # 0.1 103/ul Normal 0.0-0.7 [facility] Comment on above: Performed By: #### C BC #### [facility] [address] [place] [address] Dr. Shabnam Rae Eosinophils/100 WBC (Bld) 1.5 % Normal 0.9-7.0 [facility] Comment on above: Performed By: #### C BC #### [facility] [address] [place] [address] Dr. Shabnam Rae Erythrocyte distribution width (RBC) [Ratio] 12.8 % Normal 11.0-15.0 [facility] Comment on above: Performed By: #### C BC #### [facility] [address] [place] [address] Dr. Shabnam Rae Hematocrit (Bld) [Volume fraction] 40.3 % Critically low 42.0-54.0 [facility] Comment on above: Performed By: #### C BC #### [facility] [address] [place] [address] Dr. Shabnam Rae Hemoglobin (Bld) [Mass/Vol] 13.4 g/dL Critically low 14.0-18.0 [facility] Comment on above: Performed By: #### C BC #### [facility] [address] [place] [address] Dr. Shabnam Rae IG # 0.03 10e3/ul Normal 0.00-0.03 [facility] Comment on above: Performed By: #### C BC #### [facility] [address] [place] [address] Dr. Shabnam Rae IG % 0.5 % Normal 0.0-0.5 [facility] Comment on above: Performed By: #### C BC #### [facility] [address] [place] [address] Dr. Shabnam Rae LYMPH # 1.0 103/ul Critically low 1.2-3.8 [facility] Comment on above: Performed By: #### C BC #### [facility] [address] [place] [address] Dr. Shabnam Rae Lymphocytes/100 WBC (Bld) 16.4 % Critically low 20.5-60.0 [facility] Comment on above: Performed By: #### C BC #### [facility] [address] [place] [address] Dr. Shabnam Rae MANUAL DIFF REQ NO Normal [facility] Comment on above: Performed By: #### C BC #### [facility] [address] [place] [address] Dr. Shabnam Rae MCH (RBC) [Entitic mass] 29.5 pg Normal 25.9-34.0 [facility] Comment on above: Performed By: #### C BC #### [facility] [address] [place] [address] Dr. Shabnam Rae MCHC (RBC) [Mass/Vol] 33.3 g/dL Normal 29.9-35.2 [facility] Comment on above: Performed By: #### C BC #### [facility] [address] [place] [address] Dr. Shabnam Rae MCV (RBC) [Entitic vol] 88.8 fL Normal 80.0-94.0 [facility] Comment on above: Performed By: #### C BC #### [facility] [address] [place] [address] Dr. Shabnam Rae MONO # 0.6 103/ul Normal 0.3-0.8 [facility] Comment on above: Performed By: #### C BC #### [facility] [address] [place] [address] Dr. Shabnam Rae Monocytes/100 WBC (Bld) 9.6 % Normal 1.7-12.0 [facility] Comment on above: Performed By: #### C BC #### [facility] [address] [place] [address] Dr. Shabnam Rae NEUT # 4.4 103/ul Normal 1.4-6.5 [facility] Comment on above: Performed By: #### C BC #### [facility] [address] [place] [address] Dr. Shabnam Rae Neutrophils/100 WBC (Bld) 71.2 % Normal 43.0-75.0 [facility] Comment on above: Performed By: #### C BC #### [facility] [address] [place] [address] Dr. Shabnam Rae Platelet mean volume (Bld) [Entitic vol] 10.8 fL Normal 9.5-13.5 [facility] Comment on above: Performed By: #### C BC #### [facility] [address] [place] [address] Dr. Shabnam Rae PLT 158 103/ul Normal 150-450 [facility] Comment on above: Performed By: #### C BC #### [facility] [address] [place] [address] Dr. Shabnam Rae RBC 4.54 106/ul Critically low 4.70-6.10 [facility] Comment on above: Performed By: #### C BC #### [facility] [address] [place] [address] Dr. Shabnam Rae WBC 6.2 103/ul Normal 4.0-11.0 [facility] Comment on above: Performed By: #### C BC #### [facility] [address] [place] [address] ABD/PELV W CONon [...] Date: 2022-01-04 05:19 Normal [facility] CT PELVIS WO CONon CT PELVIS [...] MANUEL BRENNANH Date: 2022-01-04 08:54 Normal [facility] CULTURE URINEon 01-04-2022 CULTURE URINE Culture Observations: No growth Normal [facility] Comment on above: Performed By: #### P [facility] #### [facility] [address] [place] [address] Dr. Shabnam Rae Covid-19 PCR ([facility])on 12-13 SARS-CoV-2 (COVID-19) RNA ELIJAH+probe Ql (Unsp spec) Not detected Normal NOT DETECTED [facility] Comment on above: Result Comment: When diagnostic testing is negative, the possibility of a false negative should be considered in the context of a patient's recent exposures and the presence of clinical signs and symptoms consistent with SARS-CoV-2. This test is not yet approved or cleared by the [place] Food and Drug Administration (FDA). This test was developed by [employer], [place], [place]. The performance characteristics of this test were validated by [facility]. The results are not intended to be used as the sole means for clinical diagnosis or patient management decisions. The [facility] is authorized under Clinical Laboratory Improvement [...] for this test is supported by the [place] of Health and Human Service's declaration that [...] used). Performed By: #### C VDTB #### [facility] [address] [place] [address] Dr. Shabnam Rae ER URINE PROFILEon 2 Bilirubin Ql (U) Negative Normal NEGATIVE [facility] Comment on above: Performed By: #### P SASC #### [facility] [address] [place] [address] Dr. Shabnam Rae Clarity (U) CLEAR Normal CLEAR [facility] Comment on above: Performed By: #### P SASC #### [facility] [address] [place] [address] Dr. Shabnam Rae Color (U) YELLOW Normal YELLOW [facility] Comment on above: Performed By: #### P SASC #### [facility] [address] [place] [address] Dr. Shabnam Rae ERUAHD A micrscopic examination will be performed if indicated. Normal [facility] Comment on above: Performed By: #### P SASC #### [facility] [address] [place] [address] Dr. Shabnam Rae Glucose Ql (U) Negative Normal NEGATIVE [facility] Comment on above: Performed By: #### P SASC #### [facility] [address] [place] [address] Dr. Shabnam Rae Hemoglobin Ql (U) Negative Normal NEGATIVE [facility] Comment on above: Performed By: #### P SASC #### [facility] [address] [place] [address] Dr. Shabnam Rae Ketones Ql (U) Negative Normal NEGATIVE [facility] Comment on above: Performed By: #### P SASC #### [facility] [address] [place] [address] Dr. Shabnam Rae LEUKOCYTES Negative Normal NEGATIVE [facility] Comment on above: Performed By: #### P SASC #### [facility] [address] [address] [address] Shabnam Rae Nitrite Ql (U) Negative Normal NEGATIVE [facility] Comment on above: Performed By: #### P SASC #### [facility] [address] [place] [address] Dr. Shabnam Rae pH (U) 6.5 [pH] Normal 5-9 [facility] Comment on above: Performed By: #### P SASC #### [facility] [address] [address] [address] Shabnam Rae SPEC GRAVITY 1.010 Normal 1.005-<=1.025 [facility] Comment on above: Performed By: #### P SASC #### [facility] [address] [place] [address] Dr. Shabnam Rae UA PROTEIN Negative Normal NEGATIVE/ TRACE [facility] Comment on above: Performed By: #### P SASC #### [facility] [address] [place] [address] Dr. Shabnam Rae UR MICRO IND NOT INDICATED Normal [facility] Comment on above: Performed By: #### P SASC #### [facility] [address] [place] [address] Dr. Shabnam Rae Urobilinogen Qn (U) 0.2 {Sarai'U}/dL Normal 0.2 - 1. 0 [facility] Comment on above: Performed By: #### P SASC #### [facility] [address] [place] [address] Dr. Shabnam Rae LACTATE/LACTIC ACIDon 2021 Lactate [Moles/Vol] 1.0 mmol/L Normal 0.4-2.0 [facility] Comment on above: Performed By: #### P SASC #### [facility] [address] [place] [address] Dr. Shabnam Rae PROF CHEM 8 (BAS METB)on Anion gap [Moles/Vol] 10.0 mmol/L Normal [facility] Comment on above: Performed By: #### B MP #### [facility] [address] [address] [address] Shabnam Rae Calcium [Mass/Vol] 8.5 mg/dL Normal 8.5-10.1 [facility] Comment on above: Performed By: #### B MP #### [facility] [address] [address] [address] Shabnam Rae Chloride [Moles/Vol] 103 mmol/L Normal 98-107 [facility] Comment on above: Performed By: #### B MP #### [facility] [address] [address] [address] Shabnam Rae CO2 [Moles/Vol] 29.2 mmol/L Normal 21.0-32.0 [facility] Comment on above: Performed By: #### B MP #### [facility] [address] [address] [address] Shabnam Rae Creatinine [Mass/Vol] 1.25 mg/dL Normal 0.70-1.30 [facility] Comment on above: Performed By: #### B MP #### [facility] [address] [address] [address] Shabnam Rae EGFR-AF [place] >60 Normal >=60 [facility] Comment on above: Performed By: #### B MP #### [facility] [address] [address] [address] Shabnam Rae EGFR-NON AF [place] >60 Normal >=60 [facility] Comment on above: Performed By: #### B MP #### [facility] [address] [address] [address] Shabnam Rae Glucose [Mass/Vol] 132 mg/dL Critically high 74-106 [facility] Comment on above: Performed By: #### B MP #### [facility] [address] [address] [address] Shabnam Rae Potassium [Moles/Vol] 3.2 mmol/L Critically low 3.5-5.1 [facility] Comment on above: Performed By: #### B MP #### [facility] [address] [address] [address] Shabnam Rae Sodium [Moles/Vol] 139 mmol/L Normal 136-145 [facility] Comment on above: Performed By: #### B MP #### [facility] [address] [address] [address] Shabnam Rae Urea nitrogen [Mass/Vol] 19.0 mg/dL Critically high 7.0-18.0 [facility] Comment on above: Performed By: #### B MP #### [facility] [address] [address] [address] Shabnam Rae Urea nitrogen/Creatinine [Mass ratio] 15.2 mg/mg Normal [facility] Comment on above: Performed By: #### B MP #### [facility] [address] [address] [address] Shabnam Rae CERVICAL SPINE 2 OR 3 [facility] 07-06-2019 CERVICAL SPINE 2 OR 3 [facility] Department of Radiology [address] [place] [id number] Patient Name: MATTY GARCES : 1970 Sex: M Age: Race: White Pt. Location: Patient Status: O Ordered Date: 07/06/2019 9:10:00 AM Completed Date: 07/06/2019 09:21 AM Requesting Provider: LUCIANO VIEIRA Attending Provider: LUCIANO VIEIRA Report Copy To: VENUS MENDEZ Signs & Symptoms: M48.02 Spinal stenosis, cervical region I10 History: [place] Comments: , STAT READ , STAT READ [...] findings. Electronically signed by:Bernice Hoyt. Transcribed by: [email or web address], User Resident: RADHA CHIN Electronically Signed by: BERNICE HOYT @ 07/06/2019 08:52 PM I personally read this/these film(s) with this resident Normal [facility] Comment on above: Order Comment: , STA T READ , STAT READ , , , Ordering Provider - LUCIANO VIEIRA MD , CERVICAL SPINE 2 OR 3 [facility] 04-06-2019 CERVICAL SPINE 2 OR 3 [facility] Department of Radiology [address] [place] [address] Patient Name: MATTY GARCES : [...] FALLS Exam: CERVICAL SPINE 2 OR 3 [facility] CERVICAL SPINE 2 OR 3 [facility] 04/06/2019 7:28 AM EDT SIGNS AND [...] study. Electronically signed by:Bernice Hoyt. Transcribed by: [email or web address], User Resident: Electronically Signed by: BERNICE HOYT @ 04/06/2019 04:40 PM Normal [facility] Comment on above: Order Comment: AP/LA T, ODONTOID PLEASE DO SWIMMER'S VIEW FOLLOW UP HARDWARE AND ALIGNMENT, S/P ACDF, RECENT FALLS CERVICAL SPINE 2 OR 3 [facility] 02-17-2019 CERVICAL SPINE 2 OR 3 [facility] Department of Radiology [address] [place] [id number] Patient Name: MATTY GARCES : 1970 [...] ALIGNMENT Exam: CERVICAL SPINE 2 OR 3 [facility] CERVICAL SPINE 2 OR 3 [facility] 02/17/2019 [...] findings. Electronically signed by:Bella King. Transcribed by: [email or web address], User Resident: EMILE TINAJERO Electronically Signed by: BELLA KING @ 02/20/2019 11:53 AM I personally read this/these film(s) with this resident Normal [facility] Comment on above: Order Comment: C-SPI NE 2 OR 3 VIEW POSTOP, EVALUATION HARDWARE AN ALIGNMENT BASIC METABOLIC PANELon 05-2 Calcium [Mass/Vol] 9.2 mg/dL Normal 8.6-10.3 [facility] Comment on above: Order Comment: No: D o not add to previous draw Performed By: #### 5 0103 #### [facility] [address] [place] [address], [place] Chloride [Moles/Vol] 101 mmol/L Normal 98-107 [facility] Comment on above: Order Comment: No: D o not add to previous draw Performed By: #### 5 0103 #### [facility] [address] [place] [address], [place] CO2 [Moles/Vol] 26 mmol/L Normal 21-31 [facility] Comment on above: Order Comment: No: D o not add to previous draw Performed By: #### 5 0103 #### [facility] [address] [place] [address], [facility] Creatinine [Mass/Vol] 1.02 mg/dL Normal 0.70-1.30 [facility] Comment on above: Order Comment: No: D o not add to previous draw Performed By: #### 5 0103 #### [facility] [address] [place] [address], [facility] GFR/1.73 sq M predicted among blacks MDRD (S/P/Bld) [Vol rate/Area] mL/min/{1.73_m2} Normal >60 [facility] Comment on above: Order Comment: No: D o not add to previous draw Performed By: #### 5 0103 #### [facility] [address] [place] [address], [facility] GFR/1.73 sq M predicted among non-blacks MDRD (S/P/Bld) [Vol rate/Area] mL/min/{1.73_m2} Normal >60 [facility] Comment on above: Order Comment: No: D o not add to previous draw Performed By: #### 5 3 #### [facility] [address] [place] [address], [place] Glucose [Mass/Vol] 124 mg/dL High 70-100 [facility] Comment on above: Order Comment: No: D o not add to previous draw Performed By: #### 5 0103 #### [facility] [address] [place] [address], [place] Potassium [Moles/Vol] 3.9 mmol/L Normal 3.5-5.1 [facility] Comment on above: Order Comment: No: D o not add to previous draw Performed By: #### 5 3 #### [facility] [address] [place] [address], [facility] Sodium [Moles/Vol] 137 mmol/L Normal 136-145 [facility] Comment on above: Order Comment: No: D o not add to previous draw Performed By: #### 5 0103 #### [facility] [address] [place] [address], [facility] Urea nitrogen [Mass/Vol] 15 mg/dL Normal 7-25 [facility] Comment on above: Order Comment: No: D o not add to previous draw Performed By: #### 5 0103 #### [facility] [address] [place] [address], [facility] CBC COMPLETE BLOOD COUNTon - Erythrocyte distribution width (RBC) [Ratio] 13.9 % Normal 11.5-15.0 [facility] Comment on above: Order Comment: No: D o not add to previous draw Performed By: #### 5 0103 #### [facility] [address] [place] [address], [facility] Hematocrit (Bld) [Volume fraction] 50.0 % Normal 39.0-50.0 [facility] Comment on above: Order Comment: No: D o not add to previous draw Performed By: #### 5 0103 #### [facility] [address] [place] [address], [facility] Hemoglobin (Bld) [Mass/Vol] 16.0 g/dL Normal 13.0-17.0 [facility] Comment on above: Order Comment: No: D o not add to previous draw Performed By: #### 5 0103 #### [facility] [address] [place] [address], [facility] MCH (RBC) [Entitic mass] 27.5 pg Normal 27.0-33.0 [facility] Comment on above: Order Comment: No: D o not add to previous draw Performed By: #### 5 0103 #### [facility] [address] [place] [address], [facility] MCHC (RBC) [Mass/Vol] 32.0 g/dL Normal 32.0-35.0 [facility] Comment on above: Order Comment: No: D o not add to previous draw Performed By: #### 5 0103 #### [facility] [address] [place] [address], [facility] MCV (RBC) [Entitic vol] 85.9 fL Normal 82.0-98.0 [facility] Comment on above: Order Comment: No: D o not add to previous draw Performed By: #### 5 0103 #### [facility] [address] [facility] [place] [address], [facility] Nucleated RBC/100 WBC (Bld) [Ratio] 0 % Normal 0-0 [facility] Comment on above: Order Comment: No: D o not add to previous draw Performed By: #### 5 0103 #### [facility] [address] [place] [address], [facility] PLAT CNT 249 10*3/uL Normal 150-400 [facility] Comment on above: Order Comment: No: D o not add to previous draw Performed By: #### 5 0103 #### [facility] [address] [facility] [address], [facility] RBC (Bld) [#/Vol] 5.82 10*6/uL High 4.20-5.70 [facility] Comment on above: Order Comment: No: D o not add to previous draw Performed By: #### 5 0103 #### [facility] [address] [facility] [place] [id number], [facility] WBC (Bld) [#/Vol] 15.85 10*3/uL High 4.00-10.60 [facility] Comment on above: Order Comment: No: D o not add to previous draw Performed By: #### 5 0103 #### [facility] [address] [facility] [place], [place] [id number] [place] [address] Operative Reporton 9 Operative Report MR#: [id number] [facility] Pt. Name: Matty Garces Room #: [id number] Discharge Date: Birthdate: 1970 OPERATIVE REPORT DATE OF SURGERY: 01/30/2019 SURGEON: Luciano Vieira M.D. 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 POSTOPERATIVE DIAGNOSIS: Failed instrumentation at C6-7 on the right. CAUSTIC ROOM OPERATOR: ADENIKE uLgo. ANESTHESIA: Endotracheal, Hogan. PROCEDURES: Redo of redo [...] Vieira M.D. Date Trans: 01/31/2019 02:31 A/sasha [id number] cc: Venus Mendez M.D. [address], [facility] [address] [place] [facility] CERVICAL SPINE 2 OR 3 [facility] [facility] 01[facility] CERVICAL SPINE 2 OR 3 [facility] Department of Radiology [address] [place] [id number] Patient Name: MATTY GARCES : 1970 Sex: M Age: Race: White Pt. Location: Patient Status: O Ordered Date: 01/30/2019 7:05:00 AM Completed Date: 01/30/2019 04:12 PM Requesting Provider: LUCIANO VIEIRA Attending Provider: MEDHKOUR, AZEDINE Report Copy To: Signs & Symptoms: C6-7 [...] documentation Electronically signed by:Justus Montano. Transcribed by: [email or web address], User Resident: Electronically Signed by: JUSTUS MONTANO @ 01/30/2019 04:18 PM Normal [facility] Comment on above: Order Comment: C6-7 ACDF POC GLUCOSE LABon 01-30-2019 Glucose [Mass/Vol] 106 mg/dL High 70-100 [facility] Comment on above: Performed By: #### 5 0103 #### [facility] [address] *MRSA/MSSA DNA NASALon 01-23 *MRSA/MSSA DNA NASAL Clinical Report: (D ) Specimen: NASAL SWAB Collected: 01/23/2019 15:02 Status: Final Last Updated: 01/23/2019 20:14 MSSA DNA (Final) Methicillin Susceptible Staphylococcus aureus DNA Detected MRSA DNA (Final) No Methicillin Resistant Staphylococcus aureus DNA Detected Normal [facility] Comment on above: Performed By: #### 5 0103 #### [facility] [address] APTTon 01-23-2019 aPTT Coag (Bld) [Time] 35.4 s High 25.0-35.0 [facility] Comment on above: Result Comment: [...] THIS PURPOSE. Performed By: #### 5 73, 97441 #### [facility] [address] [place] [address], [facility] BASIC METABOLIC PANELon 05- Calcium [Mass/Vol] 9.5 mg/dL Normal 8.6-10.3 [facility] Comment on above: Performed By: #### 5 Al, 31489 #### [facility] [address] [place] [address], [facility] Chloride [Moles/Vol] 101 mmol/L Normal 98-107 [facility] Comment on above: Performed By: #### 5 7306, 14097 #### [facility] [address] [place] [address], [facility] CO2 [Moles/Vol] 29 mmol/L Normal 21-31 [facility] Comment on above: Performed By: #### 5 73, 56695 #### [facility] [address] [place] [address], [facility] Creatinine [Mass/Vol] 1.08 mg/dL Normal 0.70-1.30 [facility] Comment on above: Performed By: #### 5 73, 33254 #### [facility] [address] [place] [address], [facility] GFR/1.73 sq M predicted among blacks MDRD (S/P/Bld) [Vol rate/Area] mL/min/{1.73_m2} Normal >60 [facility] Comment on above: Performed By: #### 5 73, 21048 #### [facility] [address] [place] [address], [facility] GFR/1.73 sq M predicted among non-blacks MDRD (S/P/Bld) [Vol rate/Area] mL/min/{1.73_m2} Normal >60 [facility] Comment on above: Performed By: #### 5 7307, 71437 #### [facility] [address] [facility] [place] [address], [facility] Glucose [Mass/Vol] 87 mg/dL Normal 70-100 [facility] Comment on above: Performed By: #### 5 73, 70579 #### [facility] [address] [place] [address], [facility] Potassium [Moles/Vol] 4.0 mmol/L Normal 3.5-5.1 [facility] Comment on above: Performed By: #### 5 7307, 47483 #### [facility] [address] [facility]. [address] Sodium [Moles/Vol] 137 mmol/L Normal 136-145 [facility] Comment on above: Performed By: #### 5 7307, 19578 #### [facility] [address] [place] [address], [facility] Urea nitrogen [Mass/Vol] 12 mg/dL Normal 7-25 [facility] Comment on above: Performed By: #### 5 7307, 60360 #### [facility] [address] [facility] [place] [address], [facility] CBC W/DIFFon 01-23-2019 ABS BASOPHILS 0.1 10*3/uL Normal 0.0-0.2 [facility] Comment on above: Performed By: #### 5 7307, 88586 #### [facility] [address] [place] [address], [facility] ABS IMM GRANS 0.0 10*3/uL Normal 0.0-0.2 [facility] Comment on above: Performed By: #### 5 7306, 38645 #### [facility] [address] [place] [address], [facility] ABS NEUTROPHILS 5.3 10*3/uL Normal 1.6-7.6 [facility] Comment on above: Performed By: #### 5 7306, 98181 #### [facility] [address] [place] [address], [place] Basophils/100 WBC (Bld) 0.9 % Normal 0.0-1.0 [facility] Comment on above: Performed By: #### 5 7306, 14174 #### [facility] [address] [place] [address], [place] Eosinophils (Bld) [#/Vol] 0.2 10*3/uL Normal 0.0-0.5 [facility] Comment on above: Performed By: #### 5 7306, 03305 #### [facility] [address] [place] [address], [facility] Eosinophils/100 WBC (Bld) 2.3 % Normal 0.0-6.0 [facility] Comment on above: Performed By: #### 5 7306, 40764 #### [facility] [address] [place] [address], [place] Erythrocyte distribution width (RBC) [Ratio] 13.8 % Normal 11.5-15.0 [facility] Comment on above: Performed By: #### 5 7306, 29270 #### [facility] [address] [place] [address], [place] Hematocrit (Bld) [Volume fraction] 49.6 % Normal 39.0-50.0 [facility] Comment on above: Performed By: #### 5 7306, 07139 #### [facility] [address] [place] [address], [place] Hemoglobin (Bld) [Mass/Vol] 16.4 g/dL Normal 13.0-17.0 [facility] Comment on above: Performed By: #### 5 7306, 51554 #### [facility] [address] [place] [address], [facility] IMMATURE GRANS 0.5 % Normal 0.0-1.0 [facility] Comment on above: Performed By: #### 5 7306, 80078 #### [facility] [address] [facility] [place] [address], [facility] Lymphocytes (Bld) [#/Vol] 1.2 10*3/uL Normal 1.2-4.0 [facility] Comment on above: Performed By: #### 5 7306, 90341 #### [facility] [address] [place] [address], [facility] Lymphocytes/100 WBC (Bld) 16.6 % Low 20.0-45.0 [facility] Comment on above: Performed By: #### 7306, 77090 #### [facility] [address] [facility] [place] [address], [facility] MCH (RBC) [Entitic mass] 27.8 pg Normal 27.0-33.0 [facility] Comment on above: Performed By: #### 7306, 67790 #### [facility] [address] [facility] [place] [address], [facility] MCHC (RBC) [Mass/Vol] 33.1 g/dL Normal 32.0-35.0 [facility] Comment on above: Performed By: #### 5 7306, 18666 #### [facility] [address] [facility] [place] [address], [facility] MCV (RBC) [Entitic vol] 84.2 fL Normal 82.0-98.0 [facility] Comment on above: Performed By: #### 5 7306, 08126 #### [facility] [address] [place] [address], [facility] Monocytes (Bld) [#/Vol] 0.7 10*3/uL Normal 0.1-1.0 [facility] Comment on above: Performed By: #### 5 7306, 12017 #### [facility] [address] [place] [address], [place] MONOS 9.4 % Normal 5.0-12.0 [facility] Comment on above: Performed By: #### 5 7306, 00390 #### [facility] [address] [place] [address], [facility] Neutrophils/100 WBC (Bld) 70.3 % Normal 40.0-72.0 [facility] Comment on above: Performed By: #### 5 7306, 87506 #### [facility] [address] [place] [address], [facility] Nucleated RBC/100 WBC (Bld) [Ratio] 0 % Normal 0-0 [facility] Comment on above: Performed By: #### 5 Al, 29888 #### [facility] [address] [place] [address], [facility] PLAT CNT 235 10*3/uL Normal 150-400 [facility] Comment on above: Performed By: #### 5 7306, 39465 #### [facility] [address] [place] [address], [facility] RBC (Bld) [#/Vol] 5.89 10*6/uL High 4.20-5.70 [facility] Comment on above: Performed By: #### 5 7306, 42576 #### [facility] [address] [place] [address], [place] WBC (Bld) [#/Vol] 7.48 10*3/uL Normal 4.00-10.60 [facility] Comment on above: Performed By: #### 5 7306, 50959 #### [facility] [address] [employer] [address] PROTHROMBIN TIMEon 9 INR Coag (PPP) [Relative time] 1.12 {INR} Normal 0.91-1.16 [facility] Comment on above: Result [...] CHEST 1995;108:231S-246S. Performed By: #### 5 7307, 12880 #### [facility] [address] [facility] PT Coag (PPP) [Time] 14.4 s Normal 12.3-14.8 [facility] Comment on above: Result Comment: ALL RESULTS MUST BE INTERPRETED WITH RESPECT TO BLOOD DRAWING ARTIFACT OR DILUTION ERROR OF ANTICOAGULANT AT THE TIME OF SAMPLING. Performed By: #### 5 7307, 52022 #### [facility] [address] [place] [address], [facility] TYPE AND SCREENon 01-23-2019 ABO INTERPRETATION A Normal [facility] Comment on above: Performed By: #### 5 7307, 87884 #### [facility] [address] [place] [address], [facility] RH INTERPRETATION Positive Normal [facility] Comment on above: Performed By: #### 5 7307, 16968 #### [address] [address], [facility] CT 3D CERVICAL SPINE WO CONT RASTon 01-12-2019 CT 3D CERVICAL SPINE WO CONTRAST [facility] Department of Radiology [address] [place] [id number] Patient Name: MATTY GARCES : 1970 Sex: M Age: Race: White Pt. Location: Patient Status: D Ordered Date: 01/10/2019 2:15:00 PM Completed Date: 01/12/2019 10:32 AM Requesting Provider: LUCIANO VIEIRA Attending Provider: LUCIANO VIEIRA Report Copy To: VENUS MENDEZ Signs & Symptoms: M48.02 Spinal stenosis, cervical region I10 History: Althea para auth # [id number] 01/10/19-02/09/19 [id number] *er Comments: Exam: CT 3D CERVICAL SPINE [...] incomplete Electronically signed by:Ten Garland. Transcribed by: [email or web address], User Resident: Electronically Signed by: TEN GARLAND @ 01/13/2019 09:18 AM Normal [facility] CERVICAL SPINE 2 OR 3 [facility] 01-05-2019 CERVICAL SPINE 2 OR 3 [facility] Department of Radiology [address] [place] [phone] Patient Name: MATTY GARCES : 1970 [...] findings. Electronically signed by:Ten Garland. Transcribed by: [email or web address], User Resident: SHELLY DELA CRUZ Electronically Signed by: TEN GARLAND @ 01/05/2019 12:37 PM I personally read this/these film(s) with this resident Normal [facility] Comment on above: Order Comment: , , = ========= , Ordering Provider - LUCIANO VIEIRA MD , CERVICAL SPINE 2 OR 3 VWSon 08-30-2018 CERVICAL SPINE 2 OR 3 VWS [facility] Department of Radiology [address] [place] [phone] Patient Name: MATTY GARCES : 1970 Sex: M Age: Race: White Pt. Location: Patient Status: O Ordered Date: 08/30/2018 9:35:00 AM Completed Date: 08/30/2018 09:43 AM Requesting Provider: LUCIANO VIEIRA Attending Provider: LUCIANO VIEIRA Report Copy To: VENUS MENDEZ Signs & Symptoms: M50.90 Cervical disc disorder, unsp, unspecified cervical region I10 History: [place] Comments: , POST OP XRAY AP/LAT ONLY [...] findings. Electronically signed by:Bella King. Transcribed by: [email or web address], User Resident: RYAN HEAD Electronically Signed by: BELLA KING @ 08/30/2018 05:45 PM I personally read this/these film(s) with this resident Normal [facility] Comment on above: Order Comment: , POS T OP XRAY AP/LAT ONLY , POST OP XRAY AP/LAT ONLY , , , Ordering Provider - LUCIANO VIEIRA MD , Operative Reporton 8 Operative Report MR#: [id number] I [facility] Pt. Name: Matty Garces Room #: [id number] Discharge Date: Birthdate: 1970 OPERATIVE REPORT DATE OF SURGERY: 08/17/2018 SURGEON: Luciano Vieira M.D. PREOPERATIVE DIAGNOSIS: Herniated cervical disk at C6-7. POSTOPERATIVE DIAGNOSIS: Herniated cervical disk at C6-7. CAUSTIC ROOM OPERATOR: ADENIKE Larios. ANESTHESIA: Endotracheal, Braida. PROCEDURE: Anterior [...] Vieira M.D. Date Trans: 08/17/2018 11:25 P/mmo [id number] cc: Venus Mendez M.D. [address], [place] [address] [place] [facility] CERVICAL SPINE 2 OR 3 [facility] 08-17-2018 CERVICAL SPINE 2 OR 3 [facility] Department of Radiology [address] [place] [phone] Patient Name: MATTY GARCES : 1970 [...] findings. Electronically signed by:Bernice Hoyt. Transcribed by: [email or web address], User Resident: EMILE TINAJERO Electronically Signed by: BERNICE HOYT @ 08/18/2018 01:06 PM I personally read this/these film(s) with this resident Normal [facility] Comment on above: Order Comment: C6-7 ACDF with POC GLUCOSE LABon 08-17-2018 Glucose [Mass/Vol] 113 mg/dL High 70-100 [facility] Comment on above: Performed By: #### 8 5499 #### [facility] [address] [place] [address], [facility] RBC'S 2 UNITSon 08-17-2018 CROSSMATCH INTERP 1 COMP Normal [facility] Comment on above: Performed By: #### 8 6002 #### [facility] [address] [place] [address], [place] CROSSMATCH INTERP 2 COMP Normal The [facility] Comment on above: Performed By: #### 8 6002 #### [facility] [address] [place] [address], [facility] PRODUCT CODE 1 E0336 Normal [facility] Comment on above: Performed By: #### 8 6002 #### [facility] [address] [place] [address], [facility] PRODUCT CODE 2 E0336 Normal [facility] Comment on above: Performed By: #### 8 6002 #### [facility] [address] [place] [address], [facility] PRODUCT STATUS 1 RE Normal [facility] Comment on above: Result Comment: Resu lt changed by IF on 08/20/2018 07:48. The previous value was XM. Performed By: #### 8 6002 #### [facility] [address] [place] [address], [facility] PRODUCT STATUS 2 RE Normal [facility] Comment on above: Result Comment: Resu lt changed by IF on 08/20/2018 07:48. The previous value was XM. Performed By: #### 8 6002 #### [facility] [address] [place] [address], [place] UNIT ABO 1 A Normal [facility] Comment on above: Performed By: #### 8 6002 #### [facility] [address] [place] [address], [place] UNIT ABO 2 A Normal [facility] Comment on above: Performed By: #### 8 6002 #### [facility] [address] [place] [address], [place] UNIT ID 1 [id number] Normal The [facility] Comment on above: Performed By: #### 8 6002 #### [facility] [address] UNIT ID 2 [id number] Normal The [facility] Comment on above: Performed By: #### 8 6002 #### [facility] [address] [facility]. [address] UNIT RH 1 Positive Normal [facility] Comment on above: Performed By: #### 8 6002 #### [facility] [address] [facility] [address] UNIT RH 2 Positive Normal [facility] Comment on above: Performed By: #### 8 6002 #### [facility] [address] [facility]. [address] *MRSA/MSSA CULTUREon 018 *MRSA/MSSA CULTURE Clinical Report: (D) Specimen: NASAL SWAB Collected: 08/02/2018 12:37 Status: Final Last Updated: 08/03/2018 14:26 ISO (Final) No Methicillin Resistant Staphylococcus aureus Isolated (MRSA) ISO (Final) Methicillin Sensitive Staphylococcus aureus (MSSA) Isolated Normal [facility] Comment on above: Performed By: #### 3 1302 #### [facility] [address] [facility]. [address] APTTon 08-02-2018 aPTT Coag (Bld) [Time] 31.2 s Normal 25.0-35.0 [facility] Comment on above: Result [...] THIS PURPOSE. Performed By: #### 5 7307, 26381 #### [facility] [address] BASIC METABOLIC PANELon 07-15 Calcium [Mass/Vol] 9.4 mg/dL Normal 8.6-10.3 [facility] Comment on above: Performed By: #### 0 0071 #### [facility] [address] [place] [address], [place] Chloride [Moles/Vol] 103 mmol/L Normal 98-107 [facility] Comment on above: Performed By: #### 0 0071 #### [facility] [address] [place] [address], [place] CO2 [Moles/Vol] 29 mmol/L Normal 21-31 [facility] Comment on above: Performed By: #### 0 0071 #### [facility] [address] [place] [address], [place] Creatinine [Mass/Vol] 1.06 mg/dL Normal 0.70-1.30 [facility] Comment on above: Performed By: #### 0 0071 #### [facility] [address] [place] [address], [place] GFR/1.73 sq M predicted among blacks MDRD (S/P/Bld) [Vol rate/Area] mL/min/{1.73_m2} Normal >60 [facility] Comment on above: Performed By: #### 0 0071 #### [facility] [address] [place] [address], [place] GFR/1.73 sq M predicted among non-blacks MDRD (S/P/Bld) [Vol rate/Area] mL/min/{1.73_m2} Normal >60 [facility] Comment on above: Performed By: #### 0 0071 #### [facility] [address] [place] [address], [place] Glucose [Mass/Vol] 84 mg/dL Normal 70-100 [facility] Comment on above: Performed By: #### 0 0071 #### [facility] [address] [place] [address], [place] Potassium [Moles/Vol] 4.0 mmol/L Normal 3.5-5.1 [facility] Comment on above: Performed By: #### 0 0071 #### [facility] [address] [facility] [place] [address], [facility] Sodium [Moles/Vol] 140 mmol/L Normal 136-145 [facility] Comment on above: Performed By: #### 0 0071 #### [facility] [address] Urea nitrogen [Mass/Vol] 20 mg/dL Normal 7-25 [facility] Comment on above: Performed By: #### 0 1 #### [facility] [address] CBC W/DIFFon 08-02-2018 ABS BASOPHILS 0.1 10*3/uL Normal 0.0-0.2 [facility] Comment on above: Performed By: #### 5 3 #### [facility] [address] ABS IMM GRANS 0.1 10*3/uL Normal 0.0-0.2 [facility] Comment on above: Performed By: #### 5 102 #### [facility] [address] ABS NEUTROPHILS 4.2 10*3/uL Normal 1.6-7.6 [facility] Comment on above: Performed By: #### 5 102 #### [facility] [address] [place] [address], [facility] Basophils/100 WBC (Bld) 1.3 % High 0.0-1.0 [facility] Comment on above: Performed By: #### 5 102 #### [facility] [address] [place] [address], [facility] Eosinophils (Bld) [#/Vol] 0.1 10*3/uL Normal 0.0-0.5 [facility] Comment on above: Performed By: #### 5 0103 #### [facility] [address] [place] [address], [facility] Eosinophils/100 WBC (Bld) 2.0 % Normal 0.0-6.0 [facility] Comment on above: Performed By: #### 5 0103 #### [facility] [address] [facility] [place] [address], [facility] Erythrocyte distribution width (RBC) [Ratio] 13.6 % Normal 11.5-15.0 [facility] Comment on above: Performed By: #### 5 0103 #### [facility] [address] [facility] [place] [address], [facility] Hematocrit (Bld) [Volume fraction] 44.3 % Normal 39.0-50.0 [facility] Comment on above: Performed By: #### 5 0103 #### [facility] [address] [facility] [place] [address], [facility] Hemoglobin (Bld) [Mass/Vol] 15.1 g/dL Normal 13.0-17.0 [facility] Comment on above: Performed By: #### 5 0103 #### [facility] [address] [facility] [address], [facility] IMMATURE GRANS 1.1 % High 0.0-1.0 [facility] Comment on above: Performed By: #### 5 0103 #### [facility] [address] [place] [address], [facility] Lymphocytes (Bld) [#/Vol] 1.2 10*3/uL Normal 1.2-4.0 [facility] Comment on above: Performed By: #### 5 3 #### [facility] [address] [place] [id number], [facility] Lymphocytes/100 WBC (Bld) 18.3 % Low 20.0-45.0 [facility] Comment on above: Performed By: #### 5 0103 #### [facility] [address] [facility] [place] [address], [facility] MCH (RBC) [Entitic mass] 29.0 pg Normal 27.0-33.0 [facility] Comment on above: Performed By: #### 5 0103 #### [facility] [address] [facility] [place] [address], [facility] MCHC (RBC) [Mass/Vol] 34.1 g/dL Normal 32.0-35.0 [facility] Comment on above: Performed By: #### 5 3 #### [facility] [address] [facility] [place] [address], [facility] MCV (RBC) [Entitic vol] 85.0 fL Normal 82.0-98.0 [facility] Comment on above: Performed By: #### 5 0103 #### [facility] [address] [facility] [place] [address], [facility] Monocytes (Bld) [#/Vol] 0.7 10*3/uL Normal 0.1-1.0 [facility] Comment on above: Performed By: #### 5 3 #### [facility] [address] [facility] [place] [address], [facility] MONOS 11.1 % Normal 5.0-12.0 [facility] Comment on above: Performed By: #### 5 3 #### [facility] [address] [facility] [address] Neutrophils/100 WBC (Bld) 66.2 % Normal 40.0-72.0 [facility] Comment on above: Performed By: #### 5 3 #### [facility] [address] [place] [address], [facility] Nucleated RBC/100 WBC (Bld) [Ratio] 0 % Normal 0-0 [facility] Comment on above: Performed By: #### 5 0103 #### [facility] [address] PLAT CNT 179 10*3/uL Normal 150-400 The [facility] Comment on above: Performed By: #### 5 0103 #### [facility] [address] RBC (Bld) [#/Vol] 5.21 10*6/uL Normal 4.20-5.70 The [facility] Comment on above: Performed By: #### 5 0103 #### [facility] [address] [place] [address], [facility] WBC (Bld) [#/Vol] 6.39 10*3/uL Normal 4.00-10.60 [facility] Comment on above: Performed By: #### 5 0103 #### [address] CERVICAL SPINE 4 OR 5 VIEWSo n 08-02-2018 CERVICAL SPINE 4 OR 5 VIEWS [facility] Department of Radiology [address] [place] [phone] Patient Name: MATTY GARCES : 1970 Sex: M Age: Race: White Pt. Location: Patient Status: D Ordered Date: 08/02/2018 1:05:00 PM Completed Date: 08/02/2018 01:29 PM Requesting Provider: LUCIANO VIEIRA Attending Provider: LUCIANO VIEIRA Report Copy To: VENUS MENDEZ Signs & Symptoms: Z01.89 Encounter for other specified special examinations I10 History: [place] Comments: , PREOP XRAY AP/LAT \EANDE\ FLEX/EX [...] findings. Electronically signed by:Bella King. Transcribed by: [email or web address], User Resident: EMILE TINAJERO Electronically Signed by: BELLA KING @ 08/03/2018 11:58 AM I personally read this/these film(s) with this resident Normal [facility] Comment on above: Order Comment: , PRE OP XRAY AP/LAT \EANDE\ FLEX/EX , PREOP XRAY AP/LAT \EANDE\ FLEX/EX , , , Ordering Provider - LUCIANO VIEIRA MD , PROTHROMBIN TIMEon 8 INR Coag (PPP) [Relative time] 1.15 {INR} Normal 0.91-1.16 [facility] Comment on above: Result [...] CHEST 1995;108:231S-246S. Performed By: #### 5 7307, 07755 #### [facility] [employer] [address] PT Coag (PPP) [Time] 14.7 s Normal 12.3-14.8 [facility] Comment on above: Result Comment: ALL RESULTS MUST BE INTERPRETED WITH RESPECT TO BLOOD DRAWING ARTIFACT OR DILUTION ERROR OF ANTICOAGULANT AT THE TIME OF SAMPLING. Performed By: #### 5 [id number], [id number] #### [facility] [employer] [address] TYPE AND SCREENon 08-02-2018 ABO INTERPRETATION A Normal [facility] Comment on above: Order Comment: 2 uni ts 2 units 2 units 2 units 2 units Performed By: #### 6 [id number] #### [facility] [address] [place] [place] [address], [facility] RH INTERPRETATION Positive Normal The [facility] Comment on above: Order Comment: 2 uni ts 2 units 2 units 2 units 2 units Performed By: #### 6 2586 #### [facility] [address] [place] [address], [facility] URINALYSIS REFLEXon 08-02-20 Appearance (U) CLEAR Normal CLEAR The [facility] Comment on above: Performed By: #### 3 0965 #### [facility] [address] [place] [address], [facility] Bilirubin [Mass/Vol] Negative Normal NEGATIVE The [facility] Comment on above: Performed By: #### 3 0965 #### [facility] [address] [place] [address], [facility] BLOOD Negative Normal NEGATIVE The [facility] Comment on above: Performed By: #### 3 0965 #### [facility] [address] [place] [address], [facility] Color (U) YELLOW Normal YELLOW The [facility] Comment on above: Performed By: #### 3 0965 #### [facility] [address] [place] [address], [facility] Glucose [Mass/Vol] 150 mg/dL Abnormal NEGATIVE [facility] Comment on above: Performed By: #### 3 0965 #### [facility] [address] [place] [address], [facility] KETONE Negative Normal NEGATIVE The [facility] Comment on above: Performed By: #### 3 0965 #### [facility] [address] [place] [address], [facility] [place] Negative Normal NEGATIVE [facility] Comment on above: Performed By: #### 3 0965 #### [facility] [address] [place] [address], [place] MICRO NOT DONE negative chemical reactions unless requested in original order Normal The [facility] Comment on above: Performed By: #### 3 0965 #### [facility] [address] [facility] [place] [address], [facility] Nitrite Ql (U) Negative Normal NEGATIVE The [facility] Comment on above: Performed By: #### 3 0965 #### [facility] [address] [place] [address], [facility] pH (Bld) 5.0 Normal 5.0-8.0 [facility] Comment on above: Performed By: #### 3 0965 #### [facility] [address] [facility] [address], [facility] Protein (U) [Mass/Vol] Negative Normal NEGATIVE The [facility] Comment on above: Performed By: #### 3 0965 #### [facility] [address] SPEC GRAV 1.024 High 1.015-1.020 The [facility] Comment on above: Performed By: #### 3 0965 #### [facility] [address] Vital Signs Date Time Vital Sign Value Performing Clinician Facility 07-03-2024 14:45-0400 Body height 188 cm Rubén Geiger MD Work Phone: [facility] 07-03-2024 14:45-0400 Body mass index (BMI) [Ratio] 37.62 kg/m2 Rubén Geiger MD Work Phone: [facility] 07-03-2024 14:45-0400 Body weight 132.9 kg Rubén Geiger MD Work Phone: [facility] 02-25-2022 10:30-0400 Blood Pressure Location Viola Grullon [facility] 02-25-2022 10:30-0400 Diastolic blood pressure 107 mm[Hg] Viola Lue [facility] 02-25-2022 10:30-0400 Heart rate 74 /min Viola Lue [facility] 02-25-2022 10:30-0400 Respiratory rate 16 /min Viola Lue [facility] 02-25-2022 10:30-0400 Systolic blood pressure 157 mm[Hg] Viola Lue [facility] Encounters Encounter Date Encounter Type Care Provider Facility Start: 07-04-2024 End: 07-05-2024 Telephone encounter Rubén Geiger MD Work Phone: [facility] 210 Start: 07-03-2024 End: 07-03-2024 Office outpatient visit 25 minutes Rubén Geiger MD Work Phone: [facility] Comment on above: Excessive daytime sl eepiness (Primary Dx); Obstructive sleep apnea; Primary insomnia; Cubital tunnel syndrome on right Start: 07-03-2024 End: 07-03-2024 ambulatory RUBÉN GEIGER Not Available Start: 07-03-2024 End: 07-03-2024 Bamboo flowsheet Rubén Geiger MD Work Phone: [facility] Start: 07-03-2024 End: 07-03-2024 Bamboo flowsheet Rubén Geiger MD Work Phone: [facility] Start: 03-27-2024 End: 03-27-2024 ambulatory RUBÉN GEIGER Not Available Start: 01-10-2024 End: 01-10-2024 ambulatory VALENCIA DE LEÓN Not Available Start: 01-03-2024 End: 01-03-2024 [facility]ulatory [facility] Work Phone: Start: 01-03-2024 End: 01-03-2024 Departed Referred DPM Trey Vallejo Work Phone: [facility] Path Spec [facility] Start: 12-29-2023 End: 12-29-2023 ambulatory RUBÉN GEIGER Not Available Start: 11-29-2023 End: 11-30-2023 ambulatory Andrius Vytautas Giedraitis Facility:[facility] Start: 10-18-2023 End: 10-19-2023 ambulatory Andrius Juanytautas Christianneitis Facility:[facility] Start: 09-27-2023 End: 09-27-2023 ambulatory RUBÉN GEIGER Not Available Start: 08-30-2023 End: 08-31-2023 ambulatory Andrius Vytautas Christianneitis Facility:[facility] Start: 07-12-2023 End: 07-13-2023 ambulatory Andrius Vytautas Gieditis Facility:[facility] Start: 06-14-2023 End: 06-15-2023 ambulatory Andrius Vytautas Christianneitis Facility:[facility] Start: 12-06-2022 End: 12-06-[address] VENUS MENDEZ . Facility: Start: 12-05-2022 Encounter for genera l adult medical examination without abnormal findings DR VENUS MENDEZ . The [facility] Start: 12-01-2022 End: 12-02-[address] VENUS MENDEZ . Facility:[facility] Start: 12-01-2022 End: 12-02-2022 Encounter for general adult medical examination without abnormal findings DR VENUS MENDEZ . Facility:[facility] Start: 07-10-2022 End: 07-11-[address] VENUS MENDEZ . Facility:[facility] Start: 03-26-2022 End: 03-26-[address] VENUS MENDEZ . Facility:[facility] Start: 03-13-2022 End: 07-02-[address] VENUS MENDEZ . Facility: Start: 02-25-2022 End: 02-25-2022 Patient encounter procedure Viola WhittMarilee Grullon [facility] Start: 01-04-2022 End: 01-05-[address] VENUS MENDEZ . Facility: Start: 01-30-2019 End: 02-01-2019 Evaluation and management of inpatient PROVIDER UNKNOWN Facility:[facility] Start: 08-17-2018 End: 08-18-2018 Patient encounter procedure PROVIDER UNKNOWN Facility:[facility] Procedures Date Procedure Procedure Detail Performing Clinician Start: 12-01-[address] FRANKLIN MENDEZ . Comment on above: Performed By: #### P [facility] #### [facility] [address] [place] [address] Dr. Shabnam Rae Start: 01-30-2019 FUSION CERV JT W INT BD FUS DEV, ANT APPR A COL, OPEN [facility] Start: 01-30-2019 REMOVAL OF INT FIX F ROM CERVCAL VERTEBRA, OPEN APPROACH [facility] Start: 01-23-2019 Antibody screen PROVIDE R UNKNOWN Comment on above: Performed By: #### 5 [id number], [id number] #### [facility] [address] Start: 08-17-2018 ANESTH SPINE CORD SURGERY [...] units Performed By: #### 6 2586 #### [facility] [address] Start: 02-08-1998 H/O: vasectomy History of vasectomy Rubén Geiger MD Work Phone: Colonoscopy Viola Grullon Hemorrhoids (disorder) Viola Grullon Hernia of abdominal cavity (disorder) Viola Grullon Tonsillectomy Viola Grullon Plan of Treatment Date Care Activity Detail Author Start: 10-04-2024 End: 10-04-2024 Patient encounter procedure 10/04/2024 2:20 PM EST Office Visit [facility] [address] [address] Rubén Geiger MD [address] [facility] [address] [id number] [facility] Start: 07-03-2024 End: 07-03-2024 Patient encounter procedure 07/03/2024 2:40 PM EDT Office Visit [facility] [address] [address] Rubén Geiger MD 53[address] [facility] [address] [address] Arrived [facility] Comment on above: Arrived Start: 05-14-2024 Influenza vaccination Influenza Vacc ine (#1) [facility] Start: 1970 Screening for malign ant neoplasm of colon [facility] Immunizations Immunization Date Immunization Notes Care Provider Fa cili 07-06-2023 influenza virus vacc ine, unspecified formulation Rubén Geiger MD Work Phone: [facility] Healthcare Payers Date Payer Category Payer Self-pay [id number] 2022 Medicaid [facility] [id number] 2022 Medicaid [id number] 2022 Unknown 1970 Unknown [id number] 2.16.840.1.049089.3.579.2.647 1970 Unknown [id number] 2.16.840.1.622212.3.579.2.647 1969 Unknown [id number] 2.16.840.1.735971.3.579.2.593 1969 Unknown [id number] 2.16.840.1.644612.3.579.2.593 1969 Unknown [id number] 2.16.840.1.912284.3.579.2.593 1969 Unknown [id number] 2.16.840.1.660382.3.579.2.593 1969 Unknown [id number] 2.16.840.1.961906.3.579.2.593 1969 Unknown [id number] 2.16.840.1.460727.3.579.2.593 1969 Unknown [id number] 2.16.840.1.958945.3.579.2.196 1969 Unknown [id number] 2.16.840.1.251144.3.579.2.196 1969 Unknown [id number] 2.16.840.1.161307.3.579.2.196 1969 Unknown [id number] 2.16.840.1.729669.3.579.2.196 1969 Unknown [id number] 2.16.840.1.400100.3.579.2.196 1969 Unknown [id number] 2.16.840.1.955413.3.579.2.9 1969 Unknown [id number] 2.16.840.1.461645.3.579.2.9 1969 Unknown [id number] 2.16.840.1.583480.3.579.2.1258 1969 Unknown [id number] 2.16.840.1.670733.3.579.2.1258 1969 Unknown [id number] 2.16.840.1.378740.3.579.2.1258 1969 Unknown [id number] 2.16.840.1.306756.3.579.2.9 1959 Unknown [id number] Unknown [id number] Unknown 2057 2.16.840.1.302016.3.579.2.531 Social History Date Type Detail Facility Tobacco smoking status No Smokin g Status Entered [facility] [employer] Start: 03-27-2024 End: 07-03-2024 Sex Assigned At Male [facility] [employer] Start: 05-15-2018 Tobacco smoking stat [facility] Ex-smoker (finding) [facility] Start: 1970 Sex Assigned At Male [facility] Start: 03-11-2023 [facility] Start: 03-11-2023 Tobacco use and exposure Smokeless tobacco non-user [facility] Start: 03-27-2024 End: 07-03-2024 Alcoholic beverage intake Ex-drinker (finding) [facility] Start: 03-27-2024 End: 07-03-2024 History of Social function [facility] Start: 1970 Sex assigned at Not on file [facility] Functional Status Date Assessment Result Facility 02-25-2022 Functional Status N/A [facility] Clinical Notes 02-25-2022 to 07-04-2024 Telephone Encounter - Nita Anthony - 07/04/2024 4:10 PM EDTTelephone Encounter - Nita Anthony - 07/04/2024 4:10 PM EDTBmaris Geiger MD - 07/03/2024 2:40 PM EDT Note Date & Type Note Facility 07-04-2024 Telephone encounter Note left message regarding prescriptions earlier today and not being at pharmacy. I did call back and spoke to advising they were sent this afternoon. had mentioned Dr. Geiger was also going to start a Vitamin B to help boost energy in the morning. [facility] in [place]. [facility] 07-04-2024 Miscellaneous Notes left message regarding prescriptions earlier today and not being at pharmacy. I did call back and spoke to advising they were sent this afternoon. had mentioned Dr. Geiger was also going to start a Vitamin B to help boost energy in the morning. [facility] [address] in [place]. documented in this encounter [facility] 07-03-2024 History of Presen t illness Narrative Images from the original note were not included. CHIEF COMPLAINT REASON FOR VISIT: Insomnia HPI: Matty Garces is a 53 y.o. male who presents for a follow up. He states he has finally been able to walk again the week of April. He states he has been a little overwhelmed with things. He states he has been very stressed. He states there is a tie between his stress and his sleep. He states when he stops caring and stressing his sleep issues when away. He states as soon as he is aloud to do something he gets stressed because he has so much work to do. He states he feels like he is getting all mixed up again. He states he was good all summer. CURRENT MEDICATIONS: ALLERGIES/DISCONTINUE MEDICATIONS Current Outpatient Medications Medication Instructions amantadine (SYMMETREL) 100 mg, Oral, 2 times daily (04/24) aspirin (ASPIRIN) 81 mg, Oral, Daily B-D 3CC LUER-SAYRA SYR 23GX1 23G X 1 3 ML misc USE 1 SYRINGE INTRAMUSCULARLY ONCE A WEEK biotin 10 mg, Oral, Every 12 hours carvedilol (COREG) 25 mg, Oral, 2 times daily with meals CeleBREX 100 MG capsule Every 24 hours CeleXA 20 MG tablet Every 24 hours cholecalciferol (Vitamin D-3) 125 MCG (5000 UT) capsule clonazePAM (KLONOPIN) 1 mg, Oral, Nightly doxazosin (CARDURA) 8 mg, Oral, Daily doxepin (SINEQUAN) 10 mg, Oral, Nightly PRN DULoxetine (CYMBALTA) 60 mg, Oral, 2 times daily escitalopram (LEXAPRO) 20 mg, Oral, Daily furosemide (LASIX) 20 mg, Oral, Daily gabapentin (NEURONTIN) 600 mg, Oral, 2 times daily glycopyrrolate (ROBINUL) 1 mg, Oral, 2 times daily HYDROcodone-acetaminophen (Wellington) 5-325 MG tablet hydrOXYzine pamoate (Vistaril) 25 MG capsule TAKE ONE CAPSULE BY MOUTH ONCE DAILY AT BEDTIME Meclizine HCl 25 mg, Oral, Every 24 hours Melatonin 10 mg, Oral, Nightly modafinil (PROVIGIL) 200 mg, Oral, 2 times daily (04/24) Multiple Vitamins-Minerals (Multi For Him 50+) tablet as directed Orally ondansetron (ZOFRAN) 4 mg, Oral, As needed ondansetron ODT (Zofran-ODT) 4 MG disintegrating tablet OXcarbazepine (TRILEPTAL) 300 mg, Oral, Nightly pantoprazole (PROTONIX) 40 mg, Oral, Daily before breakfast potassium chloride CR (Klor-Con) 10 MEQ ER tablet 10 mEq, Oral, Daily, Take with food. senna (Senokot) 8.6 MG tablet simvastatin (ZOCOR) 20 mg, Oral, Nightly SUMAtriptan (IMITREX) 100 mg, Oral, Once as needed testosterone cypionate (DEPO-TESTOSTERONE) 200 mg, Intramuscular, Every 14 days tiZANidine (ZANAFLEX) 4 mg, Oral, Nightly Allergies Allergen Reactions Fentanyl Unknown Hydrocodone Unknown Morphine And Codeine Unknown Other Other Reaction(s): Unknown, will accelerate blindness in eye There are no discontinued medications. PAST MEDICAL HISTORY: SURGICAL/SOCIAL/FAMILY HISTORY DEPRESSION SCREEN: Past Medical History: Diagnosis Date Arthritis Central serous retinopathy CTS (carpal tunnel syndrome) GERD (gastroesophageal reflux disease) History of being hospitalized GI issues, neck pain Hypertension (CMS/HCC) Injury injury to LLF Lumbar disc disease Peripheral neuropathy Sleep disorder Tracheal stenosis Past Surgical History: Procedure Laterality Date CERVICAL FUSION Dr. Wan FOOT SURGERY Right 12/2023 HAND SURGERY Left HERNIA REPAIR OTHER SURGICAL HISTORY Procedure:ACD/ACF;Disease: 2011 OTHER SURGICAL HISTORY Procedure:surgical repair;Disease:injury to LLF ROTATOR CUFF REPAIR Right SHOULDER ARTHROSCOPY Right SHOULDER ARTHROSCOPY W/ LABRAL REPAIR Right 01/17/2018 RT shoulder labral repair Dr. Wan ULNAR NERVE TRANSPOSITION Left 2014 UVULOPALATOPHARYNGOPLASTY Procedure:U.P.P.P.;Disease:Trac heal stenosis Social History Tobacco Use Smoking status: Never Smokeless tobacco: Never Substance Use Topics Alcohol use: Not Currently Drug use: Never Family History Problem Relation Name Age of Onset Glaucoma Mother Diabetes Father Depression: Not on file REVIEW OF SYMPTOMS: Review of Systems Constitutional: Negative for chills, diaphoresis, fatigue and fever. HENT: Negative for ear pain, tinnitus and trouble swallowing. Eyes: Negative for photophobia and visual disturbance. Respiratory: Negative for cough and shortness of breath. Cardiovascular: Negative for palpitations and leg swelling. Gastrointestinal: Negative for abdominal pain and nausea. Genitourinary: Negative for difficulty urinating and urgency. Musculoskeletal: Negative for arthralgias, back pain, myalgias, neck pain and neck stiffness. Neurological: Negative for tremors, weakness, light-headedness and numbness. Psychiatric/Behavioral: Positive for sleep disturbance. Negative for agitation, confusion and suicidal ideas. OBJECTIVE: 07/03/2024 2:45 PM 03/27/2024 9:20 AM 12/29/2023 9:03 AM Vitals BMI 37.62 kg/m2 39.29 kg/m2 39.37 kg/m2 BSA (m2) 2.64 m2 2.69 m2 2.69 m2 Systolic 122 Diastolic 78 Height (in) 6' 2 6' 2 6' 2 Weight (lb) 293 306 306.6 Visit Report Report Report Report EXAM: Neurological Exam Mental Status Awake, alert and oriented to person, place and time. Oriented to person, place and time. Recent and remote memory are intact. Speech is normal. Language is fluent with no aphasia. Attention and concentration are normal. Cranial Nerves CN II: Visual acuity is normal. Visual mae full to confrontation. CN III, IV, : Extraocular movements intact bilaterally. Normal lids and orbits bilaterally. Pupils equal round and reactive to light bilaterally. CN V: Facial sensation is normal. CN VII: Full and symmetric facial movement. CN VIII: Hearing is normal. CN XII: Tongue midline without atrophy or fasciculations. Motor Normal muscle bulk throughout. Normal muscle tone. Right Left Wrist flexion 5 5 Wrist extension 5 5 Right Left Deltoid 5 5 Biceps 5 5 Triceps 5 5 Wrist flexor 5 5 Wrist extensor 5 5 Glutei 5 5 Iliopsoas 5 5 Quadriceps 5 5 Gastrocnemius 5 5 Anterior tibialis 5 5 Posterior tibialis 5 5 Sensory Light touch is normal in upper and lower extremities. Pinprick is normal in upper and lower extremities. Vibration is normal in upper and lower extremities. Reflexes Right Left Brachioradialis 2+ 2+ Biceps 2+ 2+ Patellar 2+ 2+ Achilles 2+ 2+ Right Plantar: downgoing Left Plantar: downgoing Right pathological reflexes: Alycia's absent. Ankle clonus absent. Left pathological reflexes: Alycia's absent. Ankle clonus absent. Coordination Zusiov-gu-vhik, rapid alternating movements and vmlg-il-luok normal bilaterally without dysmetria. Gait Normal casual, toe, heel and tandem gait. Romberg is absent. PROCEDURE: NONE ASSESSMENT AND PLAN: Diagnoses and all orders for this visit: Excessive daytime sleepiness - modafinil (Provigil) 200 MG tablet; Take 1 tablet (200 mg) by mouth in the morning and at noon Obstructive sleep apnea - modafinil (Provigil) 200 MG tablet; Take 1 tablet (200 mg) by mouth in the morning and at noon Primary insomnia - clonazePAM (KlonoPIN) 1 MG tablet; Take 1 tablet (1 mg) by mouth at bedtime - Melatonin 10 MG capsule; Take 10 mg by mouth at bedtime Cubital tunnel syndrome on right I will order an electromyograph evaluation of the right upper extremity to assess for nerve damage such as cervical radiculopathy, brachial plexopathy, or entrapment mononeuropathy. I counseled the patient on the possible side effects and interactions of medications. PT trial vs TENS Follow up 3 months. documented in this encounter [facility] 06-09-2023 Note [facility] Continue GDMT- Diuretic therapy Monitor daily weights, I&O, fluid restriction 1.5-2L/day, renal function and electrolytes- [facility] 03-26-2022 Note PROCEDURE: XR FOOT L T [...] 2022-03-26 10:47 [facility] 02-25-2022 Hospital Discharg e instructions Patient Education [...] Watch the hydrocele for any changes. Take alvv-ihf-cdrlygu and prescription medicines only as told by [...] 02/17/2011 Document Revised: 09/10/2018 Document Reviewed: 09/10/2018 [employer] Patient Education 2020 [employer]. Follow Up Care 01/28/2022 10:36:35 With:Mitchel DELGADO, [place] Gregorio, URO Address: When: Unknown [facility] Evaluation + Plan note No data available for this section [facility] Evaluation note No assessment inform ation available [facility] Work Phone: Evaluation note Diagnosis Excessive daytime sleepiness- Primary Obstructive sleep apnea Obstructive sleep apnea (adult) (pediatric) Primary insomnia Persistent disorder of initiating or maintaining sleep Cubital tunnel syndrome on right [facility] Diagnosis Excessive daytime sleepiness- Primary [facility] No data available for this section [facility] Summary Purpose Family History No Family History Records FoundNo Family History Records FoundNo Family History Records FoundNo Family History Records FoundNo Family History Records FoundNo Family History Records FoundNo Family History Records Found Advance Directives Advance Directive Response Recorded Date/ Time Advance Directives No May 12:42pm Hospital Course Note MR#: [id number] [facility] Pt. Name: Matty Garces Admitted: [...] section and content) DATE CREATED AUTHOR 07/19/2019 [facility] DATE CREATED AUTHOR AUTHOR'S ORGANIZ ATION 02/27/2022 [facility] DATE CREATED AUTHOR AUTHOR'S ORGANIZ ATION 12/08/2022 [facility] DATE CREATED AUTHOR AUTHOR'S ORGANIZ ATION 06/17/2023 [facility] DATE CREATED AUTHOR AUTHOR'S ORGANIZ ATION 12/03/2023 [facility] DATE CREATED AUTHOR AUTHOR'S ORGANIZ ATION 03/28/2024 [facility] DATE CREATED AUTHOR AUTHOR'S ORGANIZ ATION 07/05/2024 [facility] d[facility] Specialists EPIC Care Team (unrecognized sect ion and content) Team Status: Inactive Member Role Status Dates Trey Vallejo DPM MS Attending Provider Active Start: January 03, 2024 End: January 03, 2024 [employer] Relationship Specialty Start Date End Date Vensu Mendez MD [address] [place] [address] PCP - General Family Medicine 01/10/24 [employer] Relationship Specialty Start Date End Date Venus Mendez MD [address] [place] [address] PCP - General Family Medicine 01/10/24 [employer]er Relationship Specialty Start Date End Date Venus Mendez MD [address] [place] [phone] PCP - General Family Medicine 01/10/24 Goals [...] BE BASED ON THE PRIMARY CLINICAL RECORDS. [employer] [facility]. provides no warranty or guarantee of the accuracy or completeness of information in this document.
[2024-07-07 11:22] LABS: Basophils Absolute Auto 0.1 10^3/uL (0.0-0.1); Basophils Percent Auto 0.7 % (0.2-2.0); Eosinophils Absolute Auto 0.1 10^3/uL (0.0-0.7); Eosinophils Percent Auto 1.2 % (0.9-7.0); Hemoglobin 16.9 g/dL (14.0-18.0); Immature Granulocytes Abs Auto 0.09 10^3/uL (0.00-0.03); Lymphocytes Absolute Auto 1.1 10^3/uL (1.2-3.8); Lymphocytes Percent Auto 12.2 % (20.5-60.0); Mean Corpuscular HGB Conc 31.3 g/dL (29.9-35.2); Mean Corpuscular Hemoglobin 26.7 pg (25.9-34.0); Mean Corpuscular Volume 85.4 fL (80.0-94.0); Mean Platelet Volume 10.2 fL (9.5-13.5); Monocytes Absolute Auto 0.7 10^3/uL (0.3-0.8); Monocytes Percent Auto 7.3 % (1.7-12.0); Neutrophils Absolute Auto 7.1 10^3/uL (1.4-6.5); Neutrophils Percent Auto 77.6 % (43.0-75.0); Platelet Count 205 10^3/uL (150-450); Red Blood Count 6.32 10^6/uL (4.70-6.10); Red Cell Distribution Width 16.9 % (11.0-15.0); White Blood Count 9.1 10^3/uL (4.0-11.0)
[2024-07-07 11:35] LABS: Alanine Aminotransferase 20 U/L (16-63); Albumin Globulin Ratio 0.8; Albumin Level 3.6 g/dL (3.4-5.0); Alkaline Phosphatase 164 U/L (46-116); Anion Gap 11.9; Aspartate Amino Transferase 18 U/L (15-37); BUN Creatinine Ratio 12.5; Bilirubin Total 0.7 mg/dL (0.2-1.0); Calcium 9.7 mg/dL (8.5-10.1); Carbon Dioxide 30.9 mmol/L (21.0-32.0); Chloride 100 mmol/L (98-107); Estimated GFR (African America >60 (>=60 mL/min/1.73m^2); Estimated GFR (Non-African Ame >60 (>=60 mL/min/1.73m^2); Free T3 2.65 pg/mL (2.18-3.98); Globulin 4.7 g/dL; Glucose 111 mg/dL (74-106); Potassium 3.8 mmol/L (3.5-5.1); Sodium 139 mmol/L (136-145); Thyroid Stimulating Hormone 0.944 uIU/mL (0.358-3.740); Total Protein 8.3 g/dL (6.4-8.2)
[2024-07-07 14:17] LABS: Estimated Average Glucose 123 mg/dL; Glycohemoglobin A1C 5.9 % (4.5-6.2)
== END 2024-07-07 09:38 | disposition home or self-care (01) ==
LOC: LAB 09:38
PROVIDERS: PCP Family Medicine; Visit Provider Family Medicine
DX: K21.9 Gastro-esophageal reflux disease without esophagitis (principal); I10 Essential (primary) hypertension; M54.16 Radiculopathy, lumbar region; E11.9 Type 2 diabetes mellitus without complications; F32.9 Major depressive disorder, single episode, unspecified; E03.9 Hypothyroidism, unspecified
CPT/HCPCS: 36415; 80053; 83036; 84436; 84443; 84481; 85025

== ENCOUNTER 2024-08-04 09:40 | Outpatient (OUT) | payer MEDICAID, SELFPAY ==
[2024-08-04 10:03] LABS: Basophils Absolute Auto 0.1 10^3/uL (0.0-0.1); Basophils Percent Auto 0.9 % (0.2-2.0); Eosinophils Absolute Auto 0.1 10^3/uL (0.0-0.7); Eosinophils Percent Auto 1.4 % (0.9-7.0); Hematocrit 50.4 % (42.0-54.0); Hemoglobin 15.8 g/dL (14.0-18.0); Immature Granulocytes Abs Auto 0.08 10^3/uL (0.00-0.03); Immature Granulocytes Pct Auto 0.9 % (0.0-0.5); Lymphocytes Percent Auto 10.8 % (20.5-60.0); Mean Corpuscular HGB Conc 31.3 g/dL (29.9-35.2); Mean Corpuscular Hemoglobin 26.8 pg (25.9-34.0); Mean Corpuscular Volume 85.6 fL (80.0-94.0); Mean Platelet Volume 9.7 fL (9.5-13.5); Monocytes Absolute Auto 0.8 10^3/uL (0.3-0.8); Monocytes Percent Auto 8.9 % (1.7-12.0); Neutrophils Absolute Auto 7.2 10^3/uL (1.4-6.5); Neutrophils Percent Auto 77.1 % (43.0-75.0); Platelet Count 163 10^3/uL (150-450); Red Blood Count 5.89 10^6/uL (4.70-6.10); Red Cell Distribution Width 15.9 % (11.0-15.0); White Blood Count 9.3 10^3/uL (4.0-11.0)
[2024-08-04 10:27] LABS: Estimated Average Glucose 134 mg/dL; Glycohemoglobin A1C 6.3 % (4.5-6.2)
[2024-08-04 10:58] LABS: Alanine Aminotransferase 26 U/L (16-63); Albumin Globulin Ratio 0.8; Albumin Level 3.6 g/dL (3.4-5.0); Alkaline Phosphatase 147 U/L (46-116); Anion Gap 11.2; Aspartate Amino Transferase 27 U/L (15-37); BUN Creatinine Ratio 9.1; Bilirubin Total 0.9 mg/dL (0.2-1.0); Calcium 8.9 mg/dL (8.5-10.1); Carbon Dioxide 32.8 mmol/L (21.0-32.0); Chloride 101 mmol/L (98-107); Chol HDL Ratio 4.7; Cholesterol 174 mg/dL (<=200); Estimated GFR (African America >60 (>=60 mL/min/1.73m^2); Estimated GFR (Non-African Ame >60 (>=60 mL/min/1.73m^2); Globulin 4.3 g/dL; Glucose 89 mg/dL (74-106); HDL Cholesterol 37 mg/dL (40-60); Sodium 141 mmol/L (136-145); Total Protein 7.9 g/dL (6.4-8.2); Triglycerides 123 mg/dL (<=150); VLDL CHOLESTEROL 24.6 mg/dL
[2024-08-04 11:10] LABS: Prostate Specific Antigen Scrn 2.37 ng/mL (<=4.00)
== END 2024-08-04 09:41 | disposition home or self-care (01) ==
LOC: LAB 09:42
PROVIDERS: PCP Family Medicine; Visit Provider Family Medicine
DX: G89.29 Other chronic pain (principal); G43.909 Migraine, unspecified, not intractable, without status migrainosus; I10 Essential (primary) hypertension; E11.9 Type 2 diabetes mellitus without complications; Z12.5 Encounter for screening for malignant neoplasm of prostate
CPT/HCPCS: 36415; 80053; 80061; 83036; 85025; G0103

== ENCOUNTER 2024-08-22 13:51 | Outpatient (OUT) | payer MEDICAID, SELFPAY ==
--- NOTE | 2024-08-22 | XR_ITS ---
The [address] [address] Patient Name: MATTY WADE MRN: [id number] date: 1970 Sex: M Assigned Patient Location: Current Patient Location: Accession/Order Number: [id number] Exam Date: 08/22/2024 13:51 Report Date: 08/23/2024 08:00 At the request of: BRAYDEN LEMONS Procedure: XR foot LT min 3V PROCEDURE: XR foot LT min 3V COMPARISON: 07/04/2024 ankle x-ray HISTORY: LEFT FOOT PAIN FINDINGS: BONES:No acute fracture or dislocation. Moderate to severe degenerative changes of the first toe with a shortened appearance. Remote fixation hardware and continued healing of a distal fibular fracture partially visualized SOFT TISSUES:Soft tissue swelling of the first toe EFFUSION:None visible. OTHER: Negative. 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
== END 2024-08-22 13:52 | disposition home or self-care (01) ==
LOC: WC 13:51
PROVIDERS: PCP Family Medicine; Visit Provider Physician Assistant
DX: L03.116 Cellulitis of left lower limb (principal); L97.529 Non-pressure chronic ulcer of other part of left foot with unspecified severity; M79.672 Pain in left foot
CPT/HCPCS: 29445; 36415; 73630; 80048; 85025; 85652; 86140; G0463

== ENCOUNTER 2024-08-22 14:37 | Outpatient (OUT) | payer MEDICAID, SELFPAY ==
[2024-08-22 15:01] LABS: Basophils Absolute Auto 0.1 10^3/uL (0.0-0.1); Basophils Percent Auto 0.9 % (0.2-2.0); Eosinophils Absolute Auto 0.1 10^3/uL (0.0-0.7); Eosinophils Percent Auto 1.3 % (0.9-7.0); Hematocrit 50.2 % (42.0-54.0); Immature Granulocytes Abs Auto 0.12 10^3/uL (0.00-0.03); Immature Granulocytes Pct Auto 1.3 % (0.0-0.5); Lymphocytes Percent Auto 11.5 % (20.5-60.0); Mean Corpuscular HGB Conc 31.9 g/dL (29.9-35.2); Mean Corpuscular Hemoglobin 27.2 pg (25.9-34.0); Mean Corpuscular Volume 85.2 fL (80.0-94.0); Mean Platelet Volume 9.2 fL (9.5-13.5); Monocytes Absolute Auto 0.7 10^3/uL (0.3-0.8); Monocytes Percent Auto 7.5 % (1.7-12.0); Neutrophils Percent Auto 77.5 % (43.0-75.0); Platelet Count 191 10^3/uL (150-450); Red Blood Count 5.89 10^6/uL (4.70-6.10); Red Cell Distribution Width 15.6 % (11.0-15.0); White Blood Count 9.1 10^3/uL (4.0-11.0)
--- OUTSIDE RECORDS SUMMARY | 2024-08-22 15:01 | XMS_ITS | CCD ---
Author Organization [facility] CliniSynh Care Team Providers Care Senior Vice President Name Role Phone UNKNOWN, PROVIDER Admitting Unavailable UNKNOWN, PROVIDER Attending Unavailable VENUS MENDEZ Referring Unavailable VENUS MENDEZ Primary Care Unavailable MT Procedure Practitioner Unavailab le UNKNOWN, PROVIDER Surgeon Unavailable MT Procedure Practitioner Unavailab le SANDRA BILL Surgeon Unavailable UNKNOWN, PROVIDER Admitting Unavailable UNKNOWN, PROVIDER Attending Unavailable VENUS MENDEZ Referring Unavailable VENUS MENDEZ Primary Care Unavailable MT Procedure Practitioner Unavailab le UNKNOWN, PROVIDER Surgeon [...] Aspartame Drug Allergy 08-17-20 18 [facility] Repository (1 source) avoid; Translations: [Unknown] Propensity to adverse reactions (disorder) 08-17-20 18 [facility] Repository (1 source) vitamin B12; Translations: [cyanocobalamin] Drug Allergy Unknown (qualifier value) [facility] (1 source) Acetaminophen / HYDROcodone Drug Allergy [facility] Repository (1 source) Corticosteroids Drug allergy (disorder) [facility] Repository (1 source) fentaNYL Drug Allergy [facility] Repository (1 source) Misc-Food; Translations: [Misc-Food] Food allergy (disorder) [facility] Repository (1 source) Corticosteroids Drug allergy (disorder) 05-14-20 [facility] Repository (4 sources) fentaNYL Drug Allergy 07-08-20 [...] sources) Opioid Agonist Start: 03-20-2024 HYDROcodone-acet aminophen ([place]) 5-325 MG tablet 03/20/2024 Active amantadine hydrochloride [...] Take with food. . 02/22/2023 Active sennosides, skilled nursing 8.6 mg oral tablet (4 sources) Start: [...] by mouth at bedtime. 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 01-03-2024 L Specimen: [id number] Received: 01/03/24 Status: SOUT Re Num: [id number] Spec Type: Surgical Subm Dr: Trey Vallejo DPM, MS Tissues: A Bone Fragments - Pathologic Fracture (PROXIMAL PHALANX RIGHT HALLU) Procedures: HE/2, Gross/Micro L5, Decalcification Age/ Patient Sex Location Account Attending Physician Matty Garces 53/M LABELL [id number] Trey Vallejo DPM, MS SPEC NUM: [id number] RECD: 01/03/24 STATUS: GIOVANNI [facility] NUM: [id number] SOFY: 01/03/[address] [facility]: Trey Vallejo DPM, MS ENTERED: 01/03/24 [facility] DR: Ayesha Lundberg SPEC TYPE: Surgical [...] Sectioning reveals unremarkable yellow, spongy bone matrix. Crocheter sections are submitted in A1 following decal. Clinical history: Non-pressure chronic ulcer . Right hallux IPJ arthroplasty with wound debridement and graft application TW Specimen: [id number] Received: 01/03/24 Status: GIOVANNI Ophelia Num: [id number] Spec Type: Surgical Subm Dr: Trey Vallejo DPM, MS Tissues: A Bone Fragments - Pathologic Fracture (PROXIMAL PHALANX RIGHT HALLU) Procedures: HE/2, Gross/Micro L5, Decalcification Patient: Matty Garces [id number] (Continued) Specimen: [id number] Received: 01/03/24 (Continued) Signed (signature on file) Viral Rae MD 01/06/24 1838 Specimen: [id number] Received: 01/03/24 Status: GIOVANNI Jacinto Num: [id number] Spec Type: Surgical Subm Dr: Trey Vallejo,DPJose Eduardo, MS Tissues: A Bone Fragments - Pathologic Fracture (PROXIMAL PHALANX RIGHT HALLU) Procedures: HE/2, Gross/Micro L5, Decalcification Patient: Matty Garces [id number] (Continued) Specimen: [id number] Received: 01/03/24 (Continued) CPT Codes 50342 Specimen: [id number] Received: 01/03/24 Status: GIOVANNI Jacinto Num: [id number] Spec Type: Surgical Subm Dr: Trey Vallejo,[place], [place] Tissues: A Bone Fragments - Pathologic Fracture (PROXIMAL PHALANX RIGHT HALLU) Procedures: HE/2, Gross/Micro L5, Decalcification Patient: Matty Garces [id number] (Continued) Signed (signature on file) Kuldip-Christopher Rae MD 01/06/24 1838 Normal [facility] CT CSPINE WO CONon CT [...] Anterior corpectomy at C5-C6. Electronically authenticated by: [employer] SAID Date: 2022-12-06 06:37 Normal [facility] CT FACIAL BONES WO CONon CT FACIAL [...] maxillary sinus mucoperiosteal thickening Electronically authenticated by: [employer] SAID Date: 2022-12-06 06:41 Normal [facility] CT HEAD WO CONon 12-06-2022 CT HEAD [...] ANGEL JORDAN Date: 2022-12-06 06:39 Normal [facility] XR ELBOW RT MIN 3 VIEWSon XR ELBOW RT MIN 3 VIEWS Exam: Radiographs: XR ELBOW RT MIN 3 VIEWS Reason for exam: Elbow pain Comparison: None IMPRESSION: Right elbow degenerative changes. Olecranon spur. Remainder of the right elbow is unremarkable. Electronically authenticated by: MICHAEL CASANOVA Date: 2022-12-06 07:22 Normal [facility] XR FOREARM RT 2Von XR FOREARM RT 2V Exam: Radiographs: XR FOREARM RT 2V Reason for exam: Forearm pain Comparison: None IMPRESSION: Mild degenerative changes in the right elbow and wrist. Right forearm is otherwise unremarkable. Electronically authenticated by: MICHAEL CASANOVA Date: 2022-12-06 08:07 Normal [facility] PSA, FREE AND TOTAL RATIOon 12-03-2022 % Free PSA 9.0 % Normal [facility] Comment on above: Result Comment: The table [...] men. Performed By: #### P SAFREE #### [facility] [address] [place] [address] Dr. Shabnam Rae Prostate specific Ag [Mass/Vol] 5.9 ng/mL Critically high 0.0-4.0 [facility] Comment on above: Result Comment: Tanja BRANTLEY methodology. . According to the [employer], Serum PSA should decrease and [...] disease. Performed By: #### P SAFREE #### [facility] [address] [address] [address] Shabnam Rae PSA, Free 0.53 ng/mL Normal N/A [facility] Comment on above: Result Comment: Tanja ayala ECLIA methodology. Performed By: #### P SAFREE #### [facility] [address] [address] [address] Shabnam Rae INSULINon 12-02-2022 Insulin 20.2 uIU/mL Normal 2.6-24.9 [facility] Comment on above: Performed By: #### P SASC #### [facility] [address] [address] [address] Shabnam Rae TESTOSTERONE, TOTALon 2022 Testosterone [Mass/Vol] 256 ng/dL Critically low 264-916 [facility] Comment on above: Result Comment: Adul t male reference interval is based on a population of healthy nonobese males (BMI <30) between 19 and 39 years old. adia Ch.al. JCEM 2017,102;4017-8078. PMID: [id number]. Performed By: #### P SASC #### [facility] [address] [address] [address] Shabnam Rae CBC AUTO DIFFon 12-01-2022 BASO # 0.1 103/ul Normal 0.0-0.1 [facility] Comment on above: Performed By: #### P SASC #### [facility] [address] [address] [address] Shabnam Rae Basophils/100 WBC (Bld) 1.0 % Normal 0.2-2.0 [facility] Comment on above: Performed By: #### P SASC #### [facility] [address] [place] [address] Dr. Shabnam Rae EO # 0.1 103/ul Normal 0.0-0.7 [facility] Comment on above: Performed By: #### P SASC #### [facility] [address] [place] [address] Dr. Shabnam Rae Eosinophils/100 WBC (Bld) 1.8 % Normal 0.9-7.0 [facility] Comment on above: Performed By: #### P SASC #### [facility] [address] [place] [address] Dr. Shabnam Rae Erythrocyte distribution width (RBC) [Ratio] 14.8 % Normal 11.0-15.0 [facility] Comment on above: Performed By: #### P SASC #### [facility] [address] [place] [address] Dr. Shabnam Rae Hematocrit (Bld) [Volume fraction] 49.9 % Normal 42.0-54.0 [facility] Comment on above: Performed By: #### P SASC #### [facility] [address] [place] [address] Dr. Shabnam Rae Hemoglobin (Bld) [Mass/Vol] 16.0 g/dL Normal 14.0-18.0 [facility] Comment on above: Performed By: #### P SASC #### [facility] [address] [place] [address] Dr. Shabnam Rae IG # 0.04 10e3/ul Critically high 0.00-0.03 [facility] Comment on above: Performed By: #### P SASC #### [facility] [address] [place] [address] Dr. Shabnam Rae IG % 0.6 % Critically high 0.0-0.5 [facility] Comment on above: Performed By: #### P SASC #### [facility] [address] [place] [address] Dr. Shabnam Rae LYMPH # 1.0 103/ul Critically low 1.2-3.8 [facility] Comment on above: Performed By: #### P SASC #### [facility] [address] [place] [address] Dr. Shabnam Rae Lymphocytes/100 WBC (Bld) 16.2 % Critically low 20.5-60.0 [facility] Comment on above: Performed By: #### P SASC #### [facility] [address] [place] [address] Dr. Shabnam Rae MANUAL DIFF REQ NO Normal [facility] Comment on above: Performed By: #### P SASC #### [facility] [address] [place] [address] Dr. Shabnam Rae MCH (RBC) [Entitic mass] 27.7 pg Normal 25.9-34.0 [facility] Comment on above: Performed By: #### P SASC #### [facility] [address] [place] [address] Dr. Shabnam Rae MCHC (RBC) [Mass/Vol] 32.1 g/dL Normal 29.9-35.2 [facility] Comment on above: Performed By: #### P SASC #### [facility] [address] [place] [address] Dr. Shabnam Rae MCV (RBC) [Entitic vol] 86.3 fL Normal 80.0-94.0 [facility] Comment on above: Performed By: #### P SASC #### [facility] [address] [place] [address] Dr. Shabnam Rae MONO # 0.5 103/ul Normal 0.3-0.8 [facility] Comment on above: Performed By: #### P SASC #### [facility] [address] [place] [address] Dr. Shabnam Rae Monocytes/100 WBC (Bld) 7.6 % Normal 1.7-12.0 [facility] Comment on above: Performed By: #### P SASC #### [facility] [address] [place] [address] Dr. Shabnam Rae NEUT # 4.6 103/ul Normal 1.4-6.5 [facility] Comment on above: Performed By: #### P SASC #### [facility] [address] [address] [address] Shabnam Rae Neutrophils/100 WBC (Bld) 72.8 % Normal 43.0-75.0 [facility] Comment on above: Performed By: #### P SASC #### [facility] [address] [address] [address] Shabnam Rae Platelet mean volume (Bld) [Entitic vol] 9.8 fL Normal 9.5-13.5 [facility] Comment on above: Performed By: #### P SASC #### [facility] [address] [place] [address] Dr. Shabnam Rae PLT 203 103/ul Normal 150-450 [facility] Comment on above: Performed By: #### P SASC #### [facility] [address] [place] [address] Dr. Shabnam Rae RBC 5.78 106/ul Normal 4.70-6.10 [facility] Comment on above: Performed By: #### P SASC #### [facility] [address] [place] [address] Dr. Shabnam Rae WBC 6.3 103/ul Normal 4.0-11.0 [facility] Comment on above: Performed By: #### P SASC #### [facility] [address] [place] [address] Dr. Shabnam Rae FREE THYROXINE INDEX T7on FTI 2.05 Normal 1.30-4.50 [facility] Comment on above: Performed By: #### T SH, CMP, LIPID, T7, URIC #### [facility] [address] [place] [address] Dr. Shabnam Rae T3U 33.0 % Normal 33.0-40.0 [facility] Comment on above: Performed By: #### T SH, CMP, LIPID, T7, URIC #### [facility] [address] [place] [address] Dr. Shabnam Rae T4 [Mass/Vol] 6.20 ug/dL Normal 4.50-12.10 [facility] Comment on above: Performed By: #### T SH, CMP, LIPID, T7, URIC #### [facility] [address] [address] [address] Shabnam Rae GLYCOHEMOGLOBIN A1Con 2022 ADA RECOMMENDATION SEE BELOW Normal [facility] Comment on above: Result Comment: ADA RECOMMENDED LIMIT 4.0 - 6.0 ADA THERAPEUTIC TARGET < 7.0 ACTION SUGGESTED > 7.0 Performed By: #### P SASC #### [facility] [address] [address] [address] Shabnam Rae Glucose [Mass/Vol] 114 mg/dL Normal [facility] Comment on above: Performed By: #### P SASC #### [facility] [address] [address] [address] Shabnam Rae HbA1c (Bld) [Mass fraction] 5.6 % Normal 4.5-6.2 [facility] Comment on above: Performed By: #### P SASC #### [facility] [address] [address] [address] Shabnam Rae LIPID PROFILEon 12-01-2022 CHOL-HDL RATIO NORM SEE BELOW Normal [facility] Comment on above: Result Comment: 3.3 - 4.4 LOW RISK 4.4 - 7.1 AVERAGE RISK 7.1 - 11.0 MODERATE RISK >11.0 HIGH RISK Performed By: #### T SH, CMP, LIPID, T7, URIC #### [facility] [address] [address] [address] Shabnam Rae Cholesterol [Mass/Vol] 176 mg/dL Normal <=200 [facility] Comment on above: Performed By: #### T SH, CMP, LIPID, T7, URIC #### [facility] [address] [address] [address] Shabnam Rae Cholesterol in HDL [Mass/Vol] 48 mg/dL Normal 40-60 [facility] Comment on above: Performed By: #### T SH, CMP, LIPID, T7, URIC #### [facility] [address] [address] [address] Shabnam Rae Cholesterol in LDL [Mass/Vol] 108.2 mg/dL Normal [facility] Comment on above: Performed By: #### T SH, CMP, LIPID, T7, URIC #### [facility] [address] [address] [address] Shabnam Rae Cholesterol.total/Ch olesterol in HDL [Mass ratio] 3.7 {ratio} Normal [facility] Comment on above: Performed By: #### T SH, CMP, LIPID, T7, URIC #### [facility] [address] [address] [address] Shabnam Rae HDL NORMAL > or = 60 mg/dl - LOW CARDIOVASCULAR RISK <40 mg/dl - HIGH CARDIOVASCULAR RISK Normal [facility] Comment on above: Performed By: #### T SH, CMP, LIPID, T7, URIC #### [facility] [address] [address] [address] Shabnam Rae LDL CALC NORMAL SEE BELOW Normal [facility] Comment on above: Result Comment: <100 mg/dl OPTIMAL 100 - 129 mg/dl NEAR OR ABOVE OPTIMAL 130 - 159 mg/dl BORDERLINE HIGH 160 - 189 mg/dl HIGH >190 mg/dl VERY HIGH Performed By: #### T SH, CMP, LIPID, T7, URIC #### [facility] [address] [address] [address] Shabnam Rae Triglyceride [Mass/Vol] 99 mg/dL Normal <=150 [facility] Comment on above: Performed By: #### T SH, CMP, LIPID, T7, URIC #### [facility] [address] [address] [address] Shabnam Rae VLDL CALC 19.8 mg/dL Normal [facility] Comment on above: Performed By: #### T SH, CMP, LIPID, T7, URIC #### [facility] [address] [address] [address] Shabnam Rae PROF 14(COMP METB)on 023 Albumin [Mass/Vol] 4.1 g/dL Normal 3.4-5.0 [facility] Comment on above: Performed By: #### T SH, CMP, LIPID, T7, URIC #### [facility] [address] [address] [address] Shabnam Rae Albumin/Globulin [Mass ratio] 1.1 {ratio} Normal [facility] Comment on above: Performed By: #### T SH, CMP, LIPID, T7, URIC #### [facility] [address] [address] [address] Shabnam Rae ALP [Catalytic activity/Vol] 101 U/L Normal 46-116 [facility] Comment on above: Performed By: #### T SH, CMP, LIPID, T7, URIC #### [facility] [address] [place] [address] Dr. Shabnam Rae ALT [Catalytic activity/Vol] 26 U/L Normal 16-63 [facility] Comment on above: Performed By: #### T SH, CMP, LIPID, T7, URIC #### [facility] [address] [place] [address] Dr. Shabnam Rae Anion gap [Moles/Vol] 10.1 mmol/L Normal [facility] Comment on above: Performed By: #### T SH, CMP, LIPID, T7, URIC #### [facility] [address] [place] [address] Dr. Shabnam Rae AST [Catalytic activity/Vol] 19 U/L Normal 15-37 [facility] Comment on above: Performed By: #### T SH, CMP, LIPID, T7, URIC #### [facility] [address] [address] [address] Shabnam Rae Bilirubin [Mass/Vol] 0.8 mg/dL Normal 0.2-1.0 [facility] Comment on above: Performed By: #### T SH, CMP, LIPID, T7, URIC #### [facility] [address] [place] [address] Dr. Shabnam Rae Calcium [Mass/Vol] 9.5 mg/dL Normal 8.5-10.1 [facility] Comment on above: Performed By: #### T SH, CMP, LIPID, T7, URIC #### [facility] [address] [address] [address] Shabnam Rae Chloride [Moles/Vol] 102 mmol/L Normal 98-107 [facility] Comment on above: Performed By: #### T SH, CMP, LIPID, T7, URIC #### [facility] [address] [address] [address] Shabnam Rae CO2 [Moles/Vol] 32.4 mmol/L Critically high 21.0-32.0 [facility] Comment on above: Performed By: #### T SH, CMP, LIPID, T7, URIC #### [facility] [address] [address] [address] Shabnam Rae Creatinine [Mass/Vol] 1.00 mg/dL Normal 0.70-1.30 [facility] Comment on above: Performed By: #### T SH, CMP, LIPID, T7, URIC #### [facility] [address] [address] [address] Shabnam Rae EGFR-AF [place] >60 Normal >=60 [facility] Comment on above: Performed By: #### T SH, CMP, LIPID, T7, URIC #### [facility] [address] [address] [address] Shabnam Rae EGFR-NON AF [place] >60 Normal >=60 [facility] Comment on above: Performed By: #### T SH, CMP, LIPID, T7, URIC #### [facility] [address] [address] [address] Shabnam Rae Globulin (S) [Mass/Vol] 3.8 g/dL Normal [facility] Comment on above: Performed By: #### T SH, CMP, LIPID, T7, URIC #### [facility] [address] [address] [address] Shabnam Rae Glucose [Mass/Vol] 94 mg/dL Normal 74-106 [facility] Comment on above: Performed By: #### T SH, CMP, LIPID, T7, URIC #### [facility] [address] [address] [address] Shabnam Rae Potassium [Moles/Vol] 3.5 mmol/L Normal 3.5-5.1 [facility] Comment on above: Performed By: #### T SH, CMP, LIPID, T7, URIC #### [facility] [address] [place] [address] Dr. Shabnam Rae Protein [Mass/Vol] 7.9 g/dL Normal 6.4-8.[address] [facility] Comment on above: Performed By: #### T SH, CMP, LIPID, T7, URIC #### [facility] [address] [place] [address] Dr. Shabnam Rae Sodium [Moles/Vol] 141 mmol/L Normal 136-[address] [facility] Comment on above: Performed By: #### T SH, CMP, LIPID, T7, URIC #### [facility] [address] [place] [address] Dr. Shabnam Rae Urea nitrogen [Mass/Vol] 15.0 mg/dL Normal 7.0-18.0 [facility] Comment on above: Performed By: #### T SH, CMP, LIPID, T7, URIC #### [facility] [address] [place] [address] Dr. Shabnam Rae Urea nitrogen/Creatinine [Mass ratio] 15.0 mg/mg Normal [facility] Comment on above: Performed By: #### T SH, CMP, LIPID, T7, URIC #### [facility] [address] [place] [address] Dr. Shabnam Rae TSHon 12-01-2022 TSH 1.504 uIU/mL Normal 0.358-3.740 [facility] Comment on above: Performed By: #### T SH, CMP, LIPID, T7, URIC #### [facility] [address] [place] [address] Dr. Shabnam Rae URIC ACID SERUMon 12-01-2022 Urate [Mass/Vol] 6.9 mg/dL Normal 3.5-7.2 [facility] Comment on above: Performed By: #### T SH, CMP, LIPID, T7, URIC #### [facility] [address] [place] [address] Dr. Shabnam Rae TESTOSTERONE, TOTALon 2021 Testosterone [Mass/Vol] 244 ng/dL Critically low 264-916 [facility] Comment on above: Result Comment: Adul t male reference interval is based on a population of healthy nonobese males (BMI <30) between 19 and 39 years old. Dima, et.al. EM 2017,102;9126-3161. PMID: [id number]. Performed By: #### P SAFREE #### [facility] [address] [place] [address] Dr. Shabnam Rae TESTOSTERONE, FREE,DIRECT, T OTALon 03-16-2022 Free Testosterone(Direct) 2.1 pg/mL Critically low 7.2-24.0 [facility] Comment on above: Result Comment: Perf ormed at: BN Performed By: #### C VDTBH #### [facility] [address] [place] [address] Dr. Shabnam Rae Testosterone [Mass/Vol] 252 ng/dL Critically low 264-916 [facility] Comment on above: Result Comment: Adul t male reference interval is based on a population of healthy nonobese males (BMI <30) between 19 and 39 years old. Travison, et.al. JCEM 2017,102;2371-2917. PMID: [id number]. Performed at: CB Performed By: #### C VDTBH #### [facility] [address] [place] [address] Dr. Shabnam Rae Formson 02-26-2022 Forms [id number] 7#1.00CD:127 Normal [facility] Screenson 02-26-2022 Screens [id number] 7#1.00CD:127 Normal [facility] Screens [id number] #1.00CD:127 Normal [facility] Urology Office/Clinic Noteon 02-26-2022 Urology Office/Clinic Note [...] (more content not included)... Normal [facility] Comment on above: Result Comment: Elec tronically Signed By: Viola Grullon MD\.br\Date and Time Signed: 02/26/22 00:20 EDT\.br\Electronically Co-Signed By: Helen Leung\.br\Date and Time Co-Signed: 02/25/22 11:16 EDT Ambulatory Visit Summaryon 0 02-25-2022 Ambulatory Visit Summary SHERI MATTY T :1970 Visit Date:02/25/2022 Ambulatory Visit Instructions Your Diagnosis Hydrocele Varicocele BPH without urinary obstruction Tests Performed Urnls Dip Stick Auto w/o Microscopy POC 68932 Your Care Team Attending Physician - Viola [...] Urnls Dip Stick Auto w/o Microscopy POC 07863 (02/25/2022) Bilirubin Urine Dipstick - Negative Blood Urine Dipstick - Negative Glucose Urine Dipstick - Negative Ketones Urine Dipstick - Negative Leukocytes Urine Dipstick - Negative Nitrite Urine Dipstick - Negative Protein Urine Dipstick - Negative Specific Zoe Urine Dipstick - >=1.030 Urine Appearance Urine [...] the hydrocele for any changes. ? Take [id number] and prescription medicines only as told by [...] (more content not included)... Normal [facility] Patient Educationon 02-26-20 Patient Education Urology Hydrocele, [...] the hydrocele for any changes. ? Take [id number] and prescription medicines only as told by [...] 02/17/2011 Document Revised: 09/10/2018 Document Reviewed: 09/10/2018 [employer] Patient Education ? 2019 [employer]. Normal [facility] ED Note-Physicianon 02-04-20 ED Note-Physician [id number]#[id number]:127 Normal [facility] RAD - Ultrasound Reporton RAD - Ultrasound Report [id number] #1.00CD:127 Normal [facility] RAD - CT Reporton 02-02-2022 RAD - CT Report [id number]#1.00CD:127 [facility] RAD - CT Report [id number]#1.00CD:127 Normal [facility] CBC AUTO DIFFon 01-05-2022 BASO # 0.0 103/ul Normal 0.0-0.1 [facility] Comment on above: Performed By: #### P SAFREE #### [facility] [address], [place] [address] Dr. Shabnam Rae Basophils/100 WBC (Bld) 0.6 % Normal 0.2-2.0 [facility] Comment on above: Performed By: #### P SAFREE #### [facility] [address] [address] [address] Shabnam Rae EO # 0.1 103/ul Normal 0.0-0.7 [facility] Comment on above: Performed By: #### P SAFREE #### [facility] [address] [address] [address] Shabnam Rae Eosinophils/100 WBC (Bld) 2.1 % Normal 0.9-7.0 [facility] Comment on above: Performed By: #### P SAFREE #### [facility] [address] [place] [address] Dr. Shabnam Rae Erythrocyte distribution width (RBC) [Ratio] 13.1 % Normal 11.0-15.0 [facility] Comment on above: Performed By: #### P SAFREE #### [facility] [address] [place] [address] Dr. Shabnam Rae Hematocrit (Bld) [Volume fraction] 43.1 % Normal 42.0-54.0 [facility] Comment on above: Performed By: #### P SAFREE #### [facility] [address] [place] [address] Dr. Shabnam Rae Hemoglobin (Bld) [Mass/Vol] 13.7 g/dL Critically low 14.0-18.0 [facility] Comment on above: Performed By: #### P SAFREE #### [facility] [address] [place] [address] Dr. Shabnam Rae IG # 0.04 10e3/ul Critically high 0.00-0.03 [facility] Comment on above: Performed By: #### P SAFREE #### [facility] [address] [place] [address] Dr. Shabnam Rae IG % 0.6 % Critically high 0.0-0.5 [facility] Comment on above: Performed By: #### P SAFREE #### [facility] [address] [place] [address] Dr. Shabnam Rae LYMPH # 0.9 103/ul Critically low 1.2-3.8 [facility] Comment on above: Performed By: #### P SAFREE #### [facility] [address] [address] [address] Shabnam Rae Lymphocytes/100 WBC (Bld) 13.1 % Critically low 20.5-60.0 [facility] Comment on above: Performed By: #### P SAFREE #### [facility] [address] [address] [address] Shabnam Rae MANUAL DIFF REQ NO Normal [facility] Comment on above: Performed By: #### P SAFREE #### [facility] [address] [address] [address] Shabnam Rae MCH (RBC) [Entitic mass] 29.5 pg Normal 25.9-34.0 [facility] Comment on above: Performed By: #### P SAFREE #### [facility] [address] [place] [address] Dr. Shabnam Rae MCHC (RBC) [Mass/Vol] 31.8 g/dL Normal 29.9-35.2 [facility] Comment on above: Performed By: #### P SAFREE #### [facility] [address] [place] [address] Dr. Shabnam Rae MCV (RBC) [Entitic vol] 92.9 fL Normal 80.0-94.0 [facility] Comment on above: Performed By: #### P SAFREE #### [facility] [address] [place] [address] Dr. Shabnam Rae MONO # 0.4 103/ul Normal 0.3-0.8 [facility] Comment on above: Performed By: #### P SAFREE #### [facility] [address] [place] [address] Dr. Shabnam Rae Monocytes/100 WBC (Bld) 5.4 % Normal 1.7-12.0 [facility] Comment on above: Performed By: #### P SAFREE #### [facility] [address] [place] [address] Dr. Shabnam Rae NEUT # 5.2 103/ul Normal 1.4-6.5 [facility] Comment on above: Performed By: #### P SAFREE #### [facility] [address] [address] [address] Shabnam Rae Neutrophils/100 WBC (Bld) 78.2 % Critically high 43.0-75.0 [facility] Comment on above: Performed By: #### P SAFREE #### [facility] [address] [address] [address] Shabnam Rae Platelet mean volume (Bld) [Entitic vol] 10.9 fL Normal 9.5-13.5 [facility] Comment on above: Performed By: #### P SAFREE #### [facility] [address] [address] [address] Shabnam Rae PLT 153 103/ul Normal 150-450 [facility] Comment on above: Performed By: #### P SAFREE #### [facility] [address] [address] [address] Shabnam Rae RBC 4.64 106/ul Critically low 4.70-6.10 [facility] Comment on above: Performed By: #### P SAFREE #### [facility] [address] [address] [address] Shabnam Rae WBC 6.6 103/ul Normal 4.0-11.0 [facility] Comment on above: Performed By: #### P SAFREE #### [facility] [address] [place] [address] Dr. Shabnam Rae CRPon 01-05-2022 CRP 0.9 mg/dL Normal <=1.0 [facility] Comment on above: Performed By: #### P SAFREE #### [facility] [address] [address] [address] Shabnam Rae PROF 14(COMP METB)on 022 Albumin [Mass/Vol] 3.6 g/dL Normal 3.4-5.0 [facility] Comment on above: Performed By: #### P SAFREE #### [facility] [address] [place] [address] Dr. Shabnam Rae Albumin/Globulin [Mass ratio] 1.0 {ratio} Normal [facility] Comment on above: Performed By: #### P SAFREE #### [facility] [address] [address] [address] Shabnam Rae ALP [Catalytic activity/Vol] 114 U/L Normal 46-116 [facility] Comment on above: Performed By: #### P SAFREE #### [facility] [address] [address] [address] Shabnam Rae ALT [Catalytic activity/Vol] 26 U/L Normal 16-63 [facility] Comment on above: Performed By: #### P SAFREE #### [facility] [address] [address] [address] Shabnam Rae Anion gap [Moles/Vol] 9.3 mmol/L Normal [facility] Comment on above: Performed By: #### P SAFREE #### [facility] [address] [place] [address] Dr. Shabnam Rae AST [Catalytic activity/Vol] 19 U/L Normal 15-37 [facility] Comment on above: Performed By: #### P SAFREE #### [facility] [address] [address] [address] Shabnam Rae Bilirubin [Mass/Vol] 0.5 mg/dL Normal 0.2-1.0 [facility] Comment on above: Performed By: #### P SAFREE #### [facility] [address] [place] [address] Dr. Shabnam Rae Calcium [Mass/Vol] 8.9 mg/dL Normal 8.5-10.1 [facility] Comment on above: Performed By: #### P SAFREE #### [facility] [address] [address] [address] Shabnam Rae Chloride [Moles/Vol] 106 mmol/L Normal 98-107 [facility] Comment on above: Performed By: #### P SAFREE #### [facility] [address] [address] [address] Shabnam Rae CO2 [Moles/Vol] 30.7 mmol/L Normal 21.0-32.0 [facility] Comment on above: Performed By: #### P SAFREE #### [facility] [address] [place] [address] Dr. Shabnam Rae Creatinine [Mass/Vol] 1.15 mg/dL Normal 0.70-1.30 [facility] Comment on above: Performed By: #### P SAFREE #### [facility] [address] [place] [address] Dr. Shabnam Rae EGFR-AF [place] >60 Normal >=60 [facility] Comment on above: Performed By: #### P SAFREE #### [facility] [address] [place] [address] Dr. Shabnam Rae EGFR-NON AF [place] >60 Normal >=60 [facility] Comment on above: Performed By: #### P SAFREE #### [facility] [address] [place] [address] Dr. Shabnam Rae Globulin (S) [Mass/Vol] 3.6 g/dL Normal [facility] Comment on above: Performed By: #### P SAFREE #### [facility] [address] [place] [address] Dr. Shabnam Rae Glucose [Mass/Vol] 117 mg/dL Critically high 74-106 [facility] Comment on above: Performed By: #### P SAFREE #### [facility] [address] [place] [address] Dr. Shabnam Rae Potassium [Moles/Vol] 4.0 mmol/L Normal 3.5-5.1 [facility] Comment on above: Performed By: #### P SAFREE #### [facility] [address] [place] [address] Dr. Shabnam Rae Protein [Mass/Vol] 7.2 g/dL Normal 6.1-8.[address] [facility] Comment on above: Performed By: #### P SAFREE #### [facility] [address] [place] [address] Dr. Shabnam Rae Sodium [Moles/Vol] 142 mmol/L Normal 136-145 [facility] Comment on above: Performed By: #### P SAFREE #### [facility] [address] [place] [address] Dr. Shabnam Rae Urea nitrogen [Mass/Vol] 15.0 mg/dL Normal 7.0-18.0 [facility] Comment on above: Performed By: #### P SAFREE #### [facility] [address] [place] [address] Dr. Shabnam Rae Urea nitrogen/Creatinine [Mass ratio] 13.0 mg/mg Normal [facility] Comment on above: Performed By: #### P SAFREE #### [facility] [address] [address] [address] Shabnam Rae US SCROTUMon 01-05-2022 US [...] ALVINA CAICEDO Date: 2022-01-05 08:48 Normal [facility] CBC AUTO DIFFon 01-04-2022 BASO # 0.1 103/ul Normal 0.0-0.1 [facility] Comment on above: Performed By: #### C BC #### [facility] [address] [place] [address] Dr. Shabnam Rae Basophils/100 WBC (Bld) 0.8 % Normal 0.2-2.0 [facility] Comment on above: Performed By: #### C BC #### [facility] [address] [place] [address] Dr. Shabnam Rae EO # 0.1 103/ul Normal 0.0-0.7 [facility] Comment on above: Performed By: #### C BC #### [facility] [address] [place] [address] Dr. Shabnam Rae Eosinophils/100 WBC (Bld) 1.5 % Normal 0.9-7.0 [facility] Comment on above: Performed By: #### C BC #### [facility] [address] [place] [address] Dr. Shabnam Rae Erythrocyte distribution width (RBC) [Ratio] 12.8 % Normal 11.0-15.0 [facility] Comment on above: Performed By: #### C BC #### [facility] [address] [place] [address] Dr. Shabnam Rae Hematocrit (Bld) [Volume fraction] 40.3 % Critically low 42.0-54.0 [facility] Comment on above: Performed By: #### C BC #### [facility] [address] [place] [address] Dr. Shabnam Rae Hemoglobin (Bld) [Mass/Vol] 13.4 g/dL Critically low 14.0-18.0 [facility] Comment on above: Performed By: #### C BC #### [facility] [address] [place] [address] Dr. Shabnam Rae IG # 0.03 10e3/ul Normal 0.00-0.03 [facility] Comment on above: Performed By: #### C BC #### [facility] [address] [place] [address] Dr. Shabnam Rae IG % 0.5 % Normal 0.0-0.5 [facility] Comment on above: Performed By: #### C BC #### [facility] [address] [place] [address] Dr. Shabnam Rae LYMPH # 1.0 103/ul Critically low 1.2-3.8 [facility] Comment on above: Performed By: #### C BC #### [facility] [address] [place] [address] Dr. Shabnam Rae Lymphocytes/100 WBC (Bld) 16.4 % Critically low 20.5-60.0 [facility] Comment on above: Performed By: #### C BC #### [facility] [address] [place] [address] Dr. Shabnam Rae MANUAL DIFF REQ NO Normal [facility] Comment on above: Performed By: #### C BC #### [facility] [address] [place] [address] Dr. Shabnam Rae MCH (RBC) [Entitic mass] 29.5 pg Normal 25.9-34.0 [facility] Comment on above: Performed By: #### C BC #### [facility] [address] [place] [address] Dr. Shabnam Rae MCHC (RBC) [Mass/Vol] 33.3 g/dL Normal 29.9-35.2 [facility] Comment on above: Performed By: #### C BC #### [facility] [address] [place] [address] Dr. Shabnam Rae MCV (RBC) [Entitic vol] 88.8 fL Normal 80.0-94.0 [facility] Comment on above: Performed By: #### C BC #### [facility] [address] [place] [address] Dr. Shabnam Rae MONO # 0.6 103/ul Normal 0.3-0.8 [facility] Comment on above: Performed By: #### C BC #### [facility] [address] [place] [address] Dr. Shabnam Rae Monocytes/100 WBC (Bld) 9.6 % Normal 1.7-12.0 [facility] Comment on above: Performed By: #### C BC #### [facility] [address] [place] [address] Dr. Shabnam Rae NEUT # 4.4 103/ul Normal 1.4-6.5 [facility] Comment on above: Performed By: #### C BC #### [facility] [address] [place] [address] Dr. Shabnam Rae Neutrophils/100 WBC (Bld) 71.2 % Normal 43.0-75.0 [facility] Comment on above: Performed By: #### C BC #### [facility] [address] [place] [address] Dr. Shabnam Rae Platelet mean volume (Bld) [Entitic vol] 10.8 fL Normal 9.5-13.5 [facility] Comment on above: Performed By: #### C BC #### [facility] [address] [place] [address] Dr. Shabnam Rae PLT 158 103/ul Normal 150-450 [facility] Comment on above: Performed By: #### C BC #### [facility] [address] [place] [address] Dr. Shabnam Rae RBC 4.54 106/ul Critically low 4.70-6.10 [facility] Comment on above: Performed By: #### C BC #### [facility] [address] [place] [address] Dr. Shabnam Rae WBC 6.2 103/ul Normal 4.0-11.0 [facility] Comment on above: Performed By: #### C BC #### [facility] [address] [place] [address] ABD/PELV W CONon [...] MAYRA BERNAL Date: 2022-01-04 05:19 Normal [facility] CT PELVIS WO CONon CT PELVIS WO [...] MANUEL BRENNANH Date: 2022-01-04 08:54 Normal [facility] CULTURE URINEon 01-04-2022 CULTURE URINE Culture Observations: No growth Normal [facility] Comment on above: Performed By: #### P [facility] #### [facility] [address] [place] [address] Dr. Shabnam Rae Covid-19 PCR ([facility])on 12-13 SARS-CoV-2 (COVID-19) RNA ELIJAH+probe Ql (Unsp spec) Not detected Normal NOT DETECTED [facility] Comment on above: Result Comment: When diagnostic testing is negative, the possibility of a false negative should be considered in the context of a patient's recent exposures and the presence of clinical signs and symptoms consistent with SARS-CoV-2. This test is not yet approved or cleared by the [place] Food and Drug Administration (FDA). This test was developed by [employer], [place], [place]. The performance characteristics of this test were validated by [facility]. The results are not intended to be used as the sole means for clinical diagnosis or patient management decisions. The [facility] is authorized under Clinical Laboratory Improvement Amendments [...] for this test is supported by the [place] of Health and Human Service's declaration that [...] used). Performed By: #### C VDTB #### [facility] [address] [place] [address] Dr. Shabnam Rae ER URINE PROFILEon 2 Bilirubin Ql (U) Negative Normal NEGATIVE [facility] Comment on above: Performed By: #### P SASC #### [facility] [address] [place] [address] Dr. Shabnam Rae Clarity (U) CLEAR Normal CLEAR [facility] Comment on above: Performed By: #### P SASC #### [facility] [address] [place] [address] Dr. Shabnam Rae Color (U) YELLOW Normal YELLOW [facility] Comment on above: Performed By: #### P SASC #### [facility] [address] [place] [address] Dr. Shabnam Rae ERUAHD A micrscopic examination will be performed if indicated. Normal [facility] Comment on above: Performed By: #### P SASC #### [facility] [address] [place] [address] Dr. Shabnam Rae Glucose Ql (U) Negative Normal NEGATIVE [facility] Comment on above: Performed By: #### P SASC #### [facility] [address] [place] [address] Dr. Shabnam Rae Hemoglobin Ql (U) Negative Normal NEGATIVE [facility] Comment on above: Performed By: #### P SASC #### [facility] [address] [place] [address] Dr. Shabnam Rae Ketones Ql (U) Negative Normal NEGATIVE [facility] Comment on above: Performed By: #### P SASC #### [facility] [address] [place] [address] Dr. Shabnam Rae LEUKOCYTES Negative Normal NEGATIVE [facility] Comment on above: Performed By: #### P SASC #### [facility] [address] [address] [address] Shabnam Rae Nitrite Ql (U) Negative Normal NEGATIVE [facility] Comment on above: Performed By: #### P SASC #### [facility] [address] [place] [address] Dr. Shabnam Rae pH (U) 6.5 [pH] Normal 5-9 [facility] Comment on above: Performed By: #### P SASC #### [facility] [address] [address] [address] Shabnam Rae SPEC GRAVITY 1.010 Normal 1.005-<=1.025 [facility] Comment on above: Performed By: #### P SASC #### [facility] [address] [place] [address] Dr. Shabnam Rae UA PROTEIN Negative Normal NEGATIVE/ TRACE [facility] Comment on above: Performed By: #### P SASC #### [facility] [address] [place] [address] Dr. Shabnam Rae UR MICRO IND NOT INDICATED Normal [facility] Comment on above: Performed By: #### P SASC #### [facility] [address] [place] [address] Dr. Shabnam Rae Urobilinogen Qn (U) 0.2 {Sarai'U}/dL Normal 0.2 - 1. 0 [facility] Comment on above: Performed By: #### P SASC #### [facility] [address] [place] [address] Dr. Shabnam Rae LACTATE/LACTIC ACIDon 2021 Lactate [Moles/Vol] 1.0 mmol/L Normal 0.4-2.0 [facility] Comment on above: Performed By: #### P SASC #### [facility] [address] [place] [address] Dr. Shabnam Rae PROF CHEM 8 (BAS METB)on Anion gap [Moles/Vol] 10.0 mmol/L Normal [facility] Comment on above: Performed By: #### B MP #### [facility] [address] [address] [address] Shabnam Rae Calcium [Mass/Vol] 8.5 mg/dL Normal 8.5-10.1 [facility] Comment on above: Performed By: #### B MP #### [facility] [address] [address] [address] Shabnam Rae Chloride [Moles/Vol] 103 mmol/L Normal 98-107 [facility] Comment on above: Performed By: #### B MP #### [facility] [address] [address] [address] Shabnam Rae CO2 [Moles/Vol] 29.2 mmol/L Normal 21.0-32.0 [facility] Comment on above: Performed By: #### B MP #### [facility] [address] [address] [address] Shabnam Rae Creatinine [Mass/Vol] 1.25 mg/dL Normal 0.70-1.30 [facility] Comment on above: Performed By: #### B MP #### [facility] [address] [address] [address] Shabnam Rae EGFR-AF [place] >60 Normal >=60 [facility] Comment on above: Performed By: #### B MP #### [facility] [address] [address] [address] Shabnam Rae EGFR-NON AF [place] >60 Normal >=60 [facility] Comment on above: Performed By: #### B MP #### [facility] [address] [address] [address] Shabnam Rae Glucose [Mass/Vol] 132 mg/dL Critically high 74-106 [facility] Comment on above: Performed By: #### B MP #### [facility] [address] [address] [address] Shabnam Rae Potassium [Moles/Vol] 3.2 mmol/L Critically low 3.5-5.1 [facility] Comment on above: Performed By: #### B MP #### [facility] [address] [address] [address] Shabnam Rae Sodium [Moles/Vol] 139 mmol/L Normal 136-145 [facility] Comment on above: Performed By: #### B MP #### [facility] [address] [address] [address] Shabnam Rae Urea nitrogen [Mass/Vol] 19.0 mg/dL Critically high 7.0-18.0 [facility] Comment on above: Performed By: #### B MP #### [facility] [address] [place] [address] Dr[address] Shabnam Rae Urea nitrogen/Creatinine [Mass ratio] 15.2 mg/mg Normal [facility] Comment on above: Performed By: #### B MP #### [facility] [address] [address] [address] Shabnam Rae CERVICAL SPINE 2 OR 3 [facility] 07-06-2019 CERVICAL SPINE 2 OR 3 S [facility] Department of Radiology [address] [place] [phone] Patient Name: MATTY GARCES : 1970 [...] findings. Electronically signed by:Bernice Hoyt. Transcribed by: [email or web address], User Resident: RADHA CHIN Electronically Signed by: BERNICE HOYT @ 07/06/2019 08:52 PM I personally read this/these film(s) with this resident Normal The [facility] Comment on above: Order Comment: , STA T READ , STAT READ , , , Ordering Provider - LUCIANO VIEIRA MD , CERVICAL SPINE 2 OR 3 [facility] 04-06-2019 CERVICAL SPINE 2 OR 3 [facility] Department of Radiology [address] [place] [address] Patient Name: MATTY GARCES : [...] FALLS Exam: CERVICAL SPINE 2 OR 3 [facility] CERVICAL SPINE 2 OR 3 [facility] 04/06/2019 7:28 AM EDT SIGNS AND [...] study. Electronically signed by:Bernice Hoyt. Transcribed by: [email or web address], User Resident: Electronically Signed by: BERNICE HOYT @ 04/06/2019 04:40 PM Normal The [facility] Comment on above: Order Comment: AP/LA T, ODONTOID PLEASE DO SWIMMER'S VIEW FOLLOW UP HARDWARE AND ALIGNMENT, S/P ACDF, RECENT FALLS CERVICAL SPINE 2 OR 3 [facility] 02-17-2019 CERVICAL SPINE 2 OR 3 [facility] Department of Radiology [address] [place] [phone] Patient Name: MATTY GARCES : 1970 [...] ALIGNMENT Exam: CERVICAL SPINE 2 OR 3 [facility] CERVICAL SPINE 2 OR 3 VWS [...] findings. Electronically signed by:Bella King. Transcribed by: [email or web address], User Resident: EMILE TINAJERO Electronically Signed by: BELLA KING @ 02/20/2019 11:53 AM I personally read this/these film(s) with this resident Normal The [facility] Comment on above: Order Comment: C-SPI NE 2 OR 3 VIEW POSTOP, EVALUATION HARDWARE AN ALIGNMENT BASIC METABOLIC PANELon 05-2 Calcium [Mass/Vol] 9.2 mg/dL Normal 8.6-10.3 [facility] Comment on above: Order Comment: No: D o not add to previous draw Performed By: #### 5 0103 #### [facility] [address] [place] [address], [place] Chloride [Moles/Vol] 101 mmol/L Normal 98-107 The [facility] Comment on above: Order Comment: No: D o not add to previous draw Performed By: #### 5 0103 #### [facility] [address] [place] [address], [place] CO2 [Moles/Vol] 26 mmol/L Normal 21-31 [facility] Comment on above: Order Comment: No: D o not add to previous draw Performed By: #### 5 0103 #### [facility] [address] [place] [address], [facility] Creatinine [Mass/Vol] 1.02 mg/dL Normal 0.70-1.30 The [facility] Comment on above: Order Comment: No: D o not add to previous draw Performed By: #### 5 0103 #### [facility] [address] [place] [address], [facility] GFR/1.73 sq M predicted among blacks MDRD (S/P/Bld) [Vol rate/Area] mL/min/{1.73_m2} Normal >60 The [facility] Comment on above: Order Comment: No: D o not add to previous draw Performed By: #### 5 0103 #### [facility] [address] [place] [address], [facility] GFR/1.73 sq M predicted among non-blacks MDRD (S/P/Bld) [Vol rate/Area] mL/min/{1.73_m2} Normal >60 The [facility] Comment on above: Order Comment: No: D o not add to previous draw Performed By: #### 5 3 #### [facility] [address] [place] [address], [place] Glucose [Mass/Vol] 124 mg/dL High 70-100 [facility] Comment on above: Order Comment: No: D o not add to previous draw Performed By: #### 5 0103 #### [facility] [address] [place] [address], [place] Potassium [Moles/Vol] 3.9 mmol/L Normal 3.5-5.1 The [facility] Comment on above: Order Comment: No: D o not add to previous draw Performed By: #### 5 3 #### [facility] [address] [place] [address], [facility] Sodium [Moles/Vol] 137 mmol/L Normal 136-145 [facility] Comment on above: Order Comment: No: D o not add to previous draw Performed By: #### 5 0103 #### [facility] [address] [place] [address], [facility] Urea nitrogen [Mass/Vol] 15 mg/dL Normal 7-25 The [facility] Comment on above: Order Comment: No: D o not add to previous draw Performed By: #### 5 0103 #### [facility] [address] [place] [address], [facility] CBC COMPLETE BLOOD COUNTon - Erythrocyte distribution width (RBC) [Ratio] 13.9 % Normal 11.5-15.0 The [facility] Comment on above: Order Comment: No: D o not add to previous draw Performed By: #### 5 0103 #### [facility] [address] [place] [address], [facility] Hematocrit (Bld) [Volume fraction] 50.0 % Normal 39.0-50.0 The [facility] Comment on above: Order Comment: No: D o not add to previous draw Performed By: #### 5 0103 #### [facility] [address] [place] [address], [facility] Hemoglobin (Bld) [Mass/Vol] 16.0 g/dL Normal 13.0-17.0 The [facility] Comment on above: Order Comment: No: D o not add to previous draw Performed By: #### 5 0103 #### [facility] [address] [place] [address], [facility] MCH (RBC) [Entitic mass] 27.5 pg Normal 27.0-33.0 The [facility] Comment on above: Order Comment: No: D o not add to previous draw Performed By: #### 5 0103 #### [facility] [address] [place] [address], [facility] MCHC (RBC) [Mass/Vol] 32.0 g/dL Normal 32.0-35.0 The [facility] Comment on above: Order Comment: No: D o not add to previous draw Performed By: #### 5 0103 #### [facility] [address] [place] [address], [facility] MCV (RBC) [Entitic vol] 85.9 fL Normal 82.0-98.0 The [facility] Comment on above: Order Comment: No: D o not add to previous draw Performed By: #### 5 0103 #### [facility] [address] [facility] [place] [address], [facility] Nucleated RBC/100 WBC (Bld) [Ratio] 0 % Normal 0-0 The [facility] Comment on above: Order Comment: No: D o not add to previous draw Performed By: #### 5 0103 #### [facility] [address] [facility] [place] [address], [facility] PLAT CNT 249 10*3/uL Normal 150-400 The [facility] Comment on above: Order Comment: No: D o not add to previous draw Performed By: #### 5 0103 #### [facility] [address] [facility] [place] [address], [facility] RBC (Bld) [#/Vol] 5.82 10*6/uL High 4.20-5.70 The [facility] Comment on above: Order Comment: No: D o not add to previous draw Performed By: #### 5 0103 #### [facility] [address] [facility] [place] [id number], [facility] WBC (Bld) [#/Vol] 15.85 10*3/uL High 4.00-10.60 The [facility] Comment on above: Order Comment: No: D o not add to previous draw Performed By: #### 5 0103 #### [facility] [address] [facility] [place], [place] [id number] [place] [address] Operative Reporton 9 Operative Report MR#: [id number] I [facility] Pt. Name: Matty Garces Room #: [id number] Discharge Date: Birthdate: 1970 OPERATIVE REPORT DATE OF SURGERY: 01/30/2019 SURGEON: Luciano Vieira M.D. 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 POSTOPERATIVE DIAGNOSIS: Failed instrumentation at C6-7 on the right. POWDER MONKEY: ADENIKE Lugo. ANESTHESIA: Endotracheal, Hogan. PROCEDURES: Redo [...] Vieira M.D. Date Trans: 01/31/2019 02:31 A/sasha [id number] cc: Venus Mendez M.D. [address], [facility] [address] [place] The [facility] CERVICAL SPINE 2 OR 3 [facility] 01-30-2019 CERVICAL SPINE 2 OR 3 [facility] Department of Radiology [address] [place] [phone] Patient Name: MATTY GARCES : 1970 [...] documentation Electronically signed by:Justus Montano. Transcribed by: [email or web address], User Resident: Electronically Signed by: JUSTUS MONTANO @ 01/30/2019 04:18 PM Normal [facility] Comment on above: Order Comment: C6-7 ACDF POC GLUCOSE LABon 01-30-2019 Glucose [Mass/Vol] 106 mg/dL High 70-100 [facility] Comment on above: Performed By: #### 5 0103 #### [facility] [address] *MRSA/MSSA DNA NASALon 01-23 *MRSA/MSSA DNA NASAL Clinical Report: (D ) Specimen: NASAL SWAB Collected: 01/23/2019 15:02 Status: Final Last Updated: 01/23/2019 20:14 MSSA DNA (Final) Methicillin Susceptible Staphylococcus aureus DNA Detected MRSA DNA (Final) No Methicillin Resistant Staphylococcus aureus DNA Detected Normal The [facility] Comment on above: Performed By: #### 5 0103 #### [facility] [address] APTTon 01-23-2019 aPTT Coag (Bld) [Time] 35.4 s High 25.0-35.0 [facility] Comment on above: Result Comment: [...] THIS PURPOSE. Performed By: #### 5 73, 245[address] #### [facility] [address] [place] [address], [facility] BASIC METABOLIC PANELon 05- Calcium [Mass/Vol] 9.5 mg/dL Normal 8.6-10.3 [facility] Comment on above: Performed By: #### 5 Al, 99798 #### [facility] [address] [place] [address], [facility] Chloride [Moles/Vol] 101 mmol/L Normal 98-107 The [facility] Comment on above: Performed By: #### 5 7306, 04615 #### [facility] [address] [place] [address], [facility] CO2 [Moles/Vol] 29 mmol/L Normal 21-31 [facility] Comment on above: Performed By: #### 5 73, 93979 #### [facility] [address] [place] [address], [facility] Creatinine [Mass/Vol] 1.08 mg/dL Normal 0.70-1.30 The [facility] Comment on above: Performed By: #### 5 73, 005[address] #### [facility] [address] [place] [address], [facility] GFR/1.73 sq M predicted among blacks MDRD (S/P/Bld) [Vol rate/Area] mL/min/{1.73_m2} Normal >60 The [facility] Comment on above: Performed By: #### 5 73, 05283 #### [facility] [address] [place] [address], [facility] GFR/1.73 sq M predicted among non-blacks MDRD (S/P/Bld) [Vol rate/Area] mL/min/{1.73_m2} Normal >60 The [facility] Comment on above: Performed By: #### 5 7307, 19081 #### [facility] [address] [facility] [place] [place] [address], [facility] Glucose [Mass/Vol] 87 mg/dL Normal 70-100 [facility] Comment on above: Performed By: #### 5 73, 92537 #### [facility] [address] [place] [address], [facility] Potassium [Moles/Vol] 4.0 mmol/L Normal 3.5-5.1 The [facility] Comment on above: Performed By: #### 5 7307, 64672 #### [facility] [address] [facility] Sodium [Moles/Vol] 137 mmol/L Normal 136-145 [facility] Comment on above: Performed By: #### 5 7307, 16795 #### [facility] [address] [place] [address], [facility] Urea nitrogen [Mass/Vol] 12 mg/dL Normal 7-25 The [facility] Comment on above: Performed By: #### 5 7307, 85975 #### [facility] [address] [facility] [place] [address], [facility] CBC W/DIFFon 01-23-2019 ABS BASOPHILS 0.1 10*3/uL Normal 0.0-0.2 The [facility] Comment on above: Performed By: #### 5 7307, 22972 #### [facility] [address] [facility] [place] [address], [facility] ABS IMM GRANS 0.0 10*3/uL Normal 0.0-0.2 The [facility] Comment on above: Performed By: #### 5 7306, 19040 #### [facility] [address] [place] [address], [facility] ABS NEUTROPHILS 5.3 10*3/uL Normal 1.6-7.6 [facility] Comment on above: Performed By: #### 5 7306, 26205 #### [facility] [address] [place] [address], [place] Basophils/100 WBC (Bld) 0.9 % Normal 0.0-1.0 The [facility] Comment on above: Performed By: #### 5 7306, 48225 #### [facility] [address] [place] [address], [place] Eosinophils (Bld) [#/Vol] 0.2 10*3/uL Normal 0.0-0.5 The [facility] Comment on above: Performed By: #### 5 7306, 42987 #### [facility] [address] [place] [address], [facility] Eosinophils/100 WBC (Bld) 2.3 % Normal 0.0-6.0 The [facility] Comment on above: Performed By: #### 5 7306, 62774 #### [facility] [address] [place] [address], [place] Erythrocyte distribution width (RBC) [Ratio] 13.8 % Normal 11.5-15.0 The [facility] Comment on above: Performed By: #### 5 7306, 10664 #### [facility] [address] [place] [address], [place] Hematocrit (Bld) [Volume fraction] 49.6 % Normal 39.0-50.0 The [facility] Comment on above: Performed By: #### 5 7306, 96523 #### [facility] [address] [place] [address], [place] Hemoglobin (Bld) [Mass/Vol] 16.4 g/dL Normal 13.0-17.0 The [facility] Comment on above: Performed By: #### 5 7306, 14241 #### [facility] [address] [facility] [place] [address], [facility] IMMATURE GRANS 0.5 % Normal 0.0-1.0 The [facility] Comment on above: Performed By: #### 5 7306, 53703 #### [facility] [address] [facility] [place] [address], [facility] Lymphocytes (Bld) [#/Vol] 1.2 10*3/uL Normal 1.2-4.0 The [facility] Comment on above: Performed By: #### 5 7306, 11992 #### [facility] [address] [place] [address], [facility] Lymphocytes/100 WBC (Bld) 16.6 % Low 20.0-45.0 The [facility] Comment on above: Performed By: #### 7306, 58151 #### [facility] [address] [facility] [place] [place] [address], [facility] MCH (RBC) [Entitic mass] 27.8 pg Normal 27.0-33.0 The [facility] Comment on above: Performed By: #### 7306, 59654 #### [facility] [address] [facility] [place] [address], [facility] MCHC (RBC) [Mass/Vol] 33.1 g/dL Normal 32.0-35.0 The [facility] Comment on above: Performed By: #### 5 7306, 85401 #### [facility] [address] [facility] [place] [place] [address], [facility] MCV (RBC) [Entitic vol] 84.2 fL Normal 82.0-98.0 The [facility] Comment on above: Performed By: #### 5 7306, 85733 #### [facility] [address] [facility] [place] [address], [facility] Monocytes (Bld) [#/Vol] 0.7 10*3/uL Normal 0.1-1.0 The [facility] Comment on above: Performed By: #### 5 7306, 05600 #### [facility] [address] [place] [id number], [place] MONOS 9.4 % Normal 5.0-12.0 The [facility] Comment on above: Performed By: #### 5 7306, 42224 #### [facility] [address] [place] [id number], [facility] Neutrophils/100 WBC (Bld) 70.3 % Normal 40.0-72.0 The [facility] Comment on above: Performed By: #### 5 7306, 02550 #### [facility] [address] [place] [address], [facility] Nucleated RBC/100 WBC (Bld) [Ratio] 0 % Normal 0-0 The [facility] Comment on above: Performed By: #### 5 Al, 22019 #### [facility] [address] [place] [address], [facility] PLAT CNT 235 10*3/uL Normal 150-400 [facility] Comment on above: Performed By: #### 5 7306, 41893 #### [facility] [address] [place] [address], [facility] RBC (Bld) [#/Vol] 5.89 10*6/uL High 4.20-5.70 The [facility] Comment on above: Performed By: #### 5 7306, 56862 #### [facility] [address] [place] [id number], [place] WBC (Bld) [#/Vol] 7.48 10*3/uL Normal 4.00-10.60 The [facility] Comment on above: Performed By: #### 5 7306, 28631 #### [facility] [address] [employer] [address] PROTHROMBIN TIMEon 9 INR Coag (PPP) [Relative time] 1.12 {INR} Normal 0.91-1.16 [facility] Comment on above: Result Comment: [...] CHEST 1995;108:231S-246S. Performed By: #### 5 7307, 12559 #### [facility] [address] [facility] [address] PT Coag (PPP) [Time] 14.4 s Normal 12.3-14.8 The [facility] Comment on above: Result Comment: ALL RESULTS MUST BE INTERPRETED WITH RESPECT TO BLOOD DRAWING ARTIFACT OR DILUTION ERROR OF ANTICOAGULANT AT THE TIME OF SAMPLING. Performed By: #### 5 7307, 41767 #### [facility] [address] [place] [address], [facility] TYPE AND SCREENon 01-23-2019 ABO INTERPRETATION A Normal [facility] Comment on above: Performed By: #### 5 7307, 41881 #### [facility] [address] [place] [address], [facility] RH INTERPRETATION Positive Normal [facility] Comment on above: Performed By: #### 5 7307, 57068 #### [address] [address], [facility] CT 3D CERVICAL SPINE WO CONT RASTon 01-12-2019 CT 3D CERVICAL SPINE WO CONTRAST [facility] Department of Radiology [address] [place] [phone] Patient Name: MATTY GARCES : 1970 Sex: M Age: Race: White Pt. Location: Patient Status: D Ordered Date: 01/10/2019 2:15:00 PM Completed Date: 01/12/2019 10:32 AM Requesting Provider: LUCIANO VIEIRA Attending Provider: LUCIANO VIEIRA Report Copy To: VENUS MENDEZ Signs & Symptoms: M48.02 Spinal stenosis, cervical region I10 History: [place] para auth # [id number] 01/10/19-02/09/19 [id number] *er Comments: Exam: CT 3D CERVICAL SPINE [...] incomplete Electronically signed by:Ten Garland. Transcribed by: [email or web address], User Resident: Electronically Signed by: TEN GARLAND @ 01/13/2019 09:18 AM Normal The [facility] CERVICAL SPINE 2 OR 3 [facility] 01-05-2019 CERVICAL SPINE 2 OR 3 [facility] Department of Radiology [address] [place] [phone] Patient Name: MATTY GARCES : 1970 [...] concur with these findings. Electronically signed by:Ten Graland. Transcribed by: [email or web address], User Resident: SHELLY DELA CRUZ Electronically Signed by: TEN GARLAND @ 01/05/2019 12:37 PM I personally read this/these film(s) with this resident Normal The [facility] Comment on above: Order Comment: , , = ========= , Ordering Provider - LUCIANO VIEIRA MD , CERVICAL SPINE 2 OR 3 VWSon 08-30-2018 CERVICAL SPINE 2 OR 3 VWS [facility] Department of Radiology [address] [place] [phone] Patient Name: MATTY GARCES : 1970 [...] findings. Electronically signed by:Bella King. Transcribed by: [email or web address], User Resident: RYAN HEAD Electronically Signed by: BELLA KING @ 08/30/2018 05:45 PM I personally read this/these film(s) with this resident Normal The [facility] Comment on above: Order Comment: , POS T OP XRAY AP/LAT ONLY , POST OP XRAY AP/LAT ONLY , , , Ordering Provider - LUCIANO VIEIRA MD , Operative Reporton 8 Operative Report MR#: [id number] I [facility] Pt. Name: Matty Garces Room #: [id number] Discharge Date: Birthdate: 1970 OPERATIVE REPORT DATE OF SURGERY: 08/17/2018 SURGEON: Luciano Vieira M.D. PREOPERATIVE DIAGNOSIS: Herniated cervical disk at C6-7. POSTOPERATIVE DIAGNOSIS: Herniated cervical disk at C6-7. POWDER MONKEY: ADENIKE Larios. ANESTHESIA: Endotracheal, Braida. PROCEDURE: Anterior [...] Vieira M.D. Date Trans: 08/17/2018 11:25 P/mmo [id number] cc: Venus Mendez M.D. [address], [place] [address] [place] The [facility] CERVICAL SPINE 2 OR 3 [facility] 08-17-2018 CERVICAL SPINE 2 OR 3 [facility] Department of Radiology [address] [place] [phone] Patient Name: MATTY GARCES : 1970 [...] findings. Electronically signed by:Bernice Hoyt. Transcribed by: [email or web address], User Resident: EMILE TINAJERO Electronically Signed by: BERNICE HOYT @ 08/18/2018 01:06 PM I personally read this/these film(s) with this resident Normal The [facility] Comment on above: Order Comment: C6-7 ACDF with POC GLUCOSE LABon 08-17-2018 Glucose [Mass/Vol] 113 mg/dL High 70-100 [facility] Comment on above: Performed By: #### 8 5499 #### [facility] [address] [place] [address], [facility] RBC'S 2 UNITSon 08-17-2018 CROSSMATCH INTERP 1 COMP Normal The [facility] Comment on above: Performed By: #### 8 6002 #### [facility] [address] [place] [address], [place] CROSSMATCH INTERP 2 COMP Normal The [facility] Comment on above: Performed By: #### 8 6002 #### [facility] [address] [place] [address], [facility] PRODUCT CODE 1 [id number] Normal The [facility] Comment on above: Performed By: #### 8 6002 #### [facility] [facility] [address] [place] [address], [facility] PRODUCT CODE 2 E0336 Normal The [facility] Comment on above: Performed By: #### 8 6002 #### [facility] [address] [place] [address], [facility] PRODUCT STATUS 1 RE Normal The [facility] Comment on above: Result Comment: Resu lt changed by IF on 08/20/2018 07:48. The previous value was XM. Performed By: #### 8 6002 #### [facility] [address] [place] [address], [facility] PRODUCT STATUS 2 RE Normal The [facility] Comment on above: Result Comment: Resu lt changed by IF on 08/20/2018 07:48. The previous value was XM. Performed By: #### 8 6002 #### [facility] [address] [place] [address], [place] UNIT ABO 1 A Normal The [facility] Comment on above: Performed By: #### 8 6002 #### [facility] [address] [place] [address], [place] UNIT ABO 2 A Normal The [facility] Comment on above: Performed By: #### 8 6002 #### [facility] [address] [place] [address], [place] UNIT ID 1 [id number] Normal The [facility] Comment on above: Performed By: #### 8 6002 #### [facility] [address] UNIT ID 2 [id number] Normal The [facility] Comment on above: Performed By: #### 8 6002 #### [facility] 3000 [facility] [address] UNIT RH 1 Positive Normal [facility] Comment on above: Performed By: #### 8 6002 #### [facility] [address] [facility] [address] UNIT RH 2 Positive Normal [facility] Comment on above: Performed By: #### 8 6002 #### [facility] 3000 [facility]. [address] *MRSA/MSSA CULTUREon 018 *MRSA/MSSA CULTURE Clinical Report: (D) Specimen: NASAL SWAB Collected: 08/02/2018 12:37 Status: Final Last Updated: 08/03/2018 14:26 ISO (Final) No Methicillin Resistant Staphylococcus aureus Isolated (MRSA) ISO (Final) Methicillin Sensitive Staphylococcus aureus (MSSA) Isolated Normal The [facility] Comment on above: Performed By: #### 3 1302 #### [facility] 3000 [facility]. [address] APTTon 08-02-2018 aPTT Coag (Bld) [Time] 31.2 s Normal 25.0-35.0 [facility] Comment on above: Result Comment: [...] THIS PURPOSE. Performed By: #### 5 7307, 93889 #### [facility] [address] BASIC METABOLIC PANELon 07-15 Calcium [Mass/Vol] 9.4 mg/dL Normal 8.6-10.3 [facility] Comment on above: Performed By: #### 0 0071 #### [facility] [address] [place] [address], [place] Chloride [Moles/Vol] 103 mmol/L Normal 98-107 The [facility] Comment on above: Performed By: #### 0 0071 #### [facility] [address] [place] [address], [place] CO2 [Moles/Vol] 29 mmol/L Normal 21-31 [facility] Comment on above: Performed By: #### 0 0071 #### [facility] [address] [place] [address], [place] Creatinine [Mass/Vol] 1.06 mg/dL Normal 0.70-1.30 The [facility] Comment on above: Performed By: #### 0 0071 #### [facility] [address] [place] [address], [place] GFR/1.73 sq M predicted among blacks MDRD (S/P/Bld) [Vol rate/Area] mL/min/{1.73_m2} Normal >60 The [facility] Comment on above: Performed By: #### 0 0071 #### [facility] [address] [place] [address], [place] GFR/1.73 sq M predicted among non-blacks MDRD (S/P/Bld) [Vol rate/Area] mL/min/{1.73_m2} Normal >60 The [facility] Comment on above: Performed By: #### 0 0071 #### [facility] [address] [place] [address], [place] Glucose [Mass/Vol] 84 mg/dL Normal 70-100 [facility] Comment on above: Performed By: #### 0 0071 #### [facility] [address] [place] [address], [place] Potassium [Moles/Vol] 4.0 mmol/L Normal 3.5-5.1 The [facility] Comment on above: Performed By: #### 0 0071 #### [facility] [address] [facility] [place] [place] [address], [facility] Sodium [Moles/Vol] 140 mmol/L Normal 136-145 The [facility] Comment on above: Performed By: #### 0 0071 #### [facility] [address] Urea nitrogen [Mass/Vol] 20 mg/dL Normal 7-25 The [facility] Comment on above: Performed By: #### 0 1 #### [facility] [address] CBC W/DIFFon 08-02-2018 ABS BASOPHILS 0.1 10*3/uL Normal 0.0-0.2 The [facility] Comment on above: Performed By: #### 5 3 #### [facility] [address] ABS IMM GRANS 0.1 10*3/uL Normal 0.0-0.2 The [facility] Comment on above: Performed By: #### 5 102 #### [facility] [address] ABS NEUTROPHILS 4.2 10*3/uL Normal 1.6-7.6 The [facility] Comment on above: Performed By: #### 5 102 #### [facility] [address] [place] [address], [facility] Basophils/100 WBC (Bld) 1.3 % High 0.0-1.0 The [facility] Comment on above: Performed By: #### 5 102 #### [facility] [address] [place] [address], [facility] Eosinophils (Bld) [#/Vol] 0.1 10*3/uL Normal 0.0-0.5 The [facility] Comment on above: Performed By: #### 5 0103 #### [facility] [address] [facility] [place] [address], [facility] Eosinophils/100 WBC (Bld) 2.0 % Normal 0.0-6.0 The [facility] Comment on above: Performed By: #### 5 0103 #### [facility] [address] [facility] [place] [address], [facility] Erythrocyte distribution width (RBC) [Ratio] 13.6 % Normal 11.5-15.0 The [facility] Comment on above: Performed By: #### 5 0103 #### [facility] [address] [facility] [place] [address], [facility] Hematocrit (Bld) [Volume fraction] 44.3 % Normal 39.0-50.0 The [facility] Comment on above: Performed By: #### 5 0103 #### [facility] [address] [facility] [place] [address], [facility] Hemoglobin (Bld) [Mass/Vol] 15.1 g/dL Normal 13.0-17.0 The [facility] Comment on above: Performed By: #### 5 0103 #### [facility] [address] [facility] [place] [address], [facility] IMMATURE GRANS 1.1 % High 0.0-1.0 The [facility] Comment on above: Performed By: #### 5 0103 #### [facility] [address] [facility] [place] [address], [facility] Lymphocytes (Bld) [#/Vol] 1.2 10*3/uL Normal 1.2-4.0 The [facility] Comment on above: Performed By: #### 5 3 #### [facility] [address] [place] [id number], [facility] Lymphocytes/100 WBC (Bld) 18.3 % Low 20.0-45.0 The [facility] Comment on above: Performed By: #### 5 0103 #### [facility] [address] [facility] [place] [address], [facility] MCH (RBC) [Entitic mass] 29.0 pg Normal 27.0-33.0 The [facility] Comment on above: Performed By: #### 5 0103 #### [facility] [address] [facility] [place] [address], [facility] MCHC (RBC) [Mass/Vol] 34.1 g/dL Normal 32.0-35.0 The [facility] Comment on above: Performed By: #### 5 3 #### [facility] [address] [facility] [place] [address], [facility] MCV (RBC) [Entitic vol] 85.0 fL Normal 82.0-98.0 The [facility] Comment on above: Performed By: #### 5 0103 #### [facility] [address] [facility] [place] [place] [address], [facility] Monocytes (Bld) [#/Vol] 0.7 10*3/uL Normal 0.1-1.0 The [facility] Comment on above: Performed By: #### 5 3 #### [facility] [address] [facility] [place] [address], [facility] MONOS 11.1 % Normal 5.0-12.0 The [facility] Comment on above: Performed By: #### 5 3 #### [facility] [address] [facility] [address] Neutrophils/100 WBC (Bld) 66.2 % Normal 40.0-72.0 The [facility] Comment on above: Performed By: #### 5 3 #### [facility] [address] [place] [address], [facility] Nucleated RBC/100 WBC (Bld) [Ratio] 0 % Normal 0-0 The [facility] Comment on above: Performed By: #### 5 0103 #### [facility] [address] PLAT CNT 179 10*3/uL Normal 150-400 The [facility] Comment on above: Performed By: #### 5 0103 #### [facility] [address] RBC (Bld) [#/Vol] 5.21 10*6/uL Normal 4.20-5.70 The [facility] Comment on above: Performed By: #### 5 0103 #### [facility] [address] [place] [address], [facility] WBC (Bld) [#/Vol] 6.39 10*3/uL Normal 4.00-10.60 The [facility] Comment on above: Performed By: #### 5 0103 #### [address] CERVICAL SPINE 4 OR 5 VIEWSo n 08-02-2018 CERVICAL SPINE 4 OR 5 VIEWS [facility] Department of Radiology [address] [place] [id number] Patient Name: MATTY GARCES : 1970 Sex: M Age: Race: White Pt. Location: Patient Status: D Ordered Date: 08/02/2018 1:05:00 PM Completed Date: 08/02/2018 01:29 PM Requesting Provider: LUCIANO VIEIRA Attending Provider: LUCIANO VIEIRA Report Copy To: VENUS MENDEZ Signs & Symptoms: Z01.89 Encounter for other specified special examinations I10 History: [place] Comments: , PREOP XRAY AP/LAT \EANDE\ FLEX/EX [...] findings. Electronically signed by:Bella King. Transcribed by: [email or web address], User Resident: EMILE TINAJERO Electronically Signed by: BELLA KING @ 08/03/2018 11:58 AM I personally read this/these film(s) with this resident Normal The [facility] Comment on above: Order Comment: , PRE OP XRAY AP/LAT \EANDE\ FLEX/EX , PREOP XRAY AP/LAT \EANDE\ FLEX/EX , , , Ordering Provider - LUCIAON VIEIRA MD , PROTHROMBIN TIMEon 8 INR Coag (PPP) [Relative time] 1.15 {INR} Normal 0.91-1.16 [facility] Comment on above: Result Comment: [...] CHEST 1995;108:231S-246S. Performed By: #### 5 7307, 91349 #### [facility] [employer] [address] PT Coag (PPP) [Time] 14.7 s Normal 12.3-14.8 [facility] Comment on above: Result Comment: ALL RESULTS MUST BE INTERPRETED WITH RESPECT TO BLOOD DRAWING ARTIFACT OR DILUTION ERROR OF ANTICOAGULANT AT THE TIME OF SAMPLING. Performed By: #### 5 7307, 56253 #### [facility] [employer] [address] TYPE AND SCREENon 08-02-2018 ABO INTERPRETATION A Normal [facility] Comment on above: Order Comment: 2 uni ts 2 units 2 units 2 units 2 units Performed By: #### 6 2586 #### [facility] 3000 [place] [address], [facility] RH INTERPRETATION Positive Normal The [facility] Comment on above: Order Comment: 2 uni ts 2 units 2 units 2 units 2 units Performed By: #### 6 2586 #### [facility] [address] [place] [address], [facility] URINALYSIS REFLEXon 08-02-20 Appearance (U) CLEAR Normal CLEAR The [facility] Comment on above: Performed By: #### 3 0965 #### [facility] [address] [place] [address], [facility] Bilirubin [Mass/Vol] Negative Normal NEGATIVE The [facility] Comment on above: Performed By: #### 3 0965 #### [facility] [address] [place] [address], [facility] BLOOD Negative Normal NEGATIVE The [facility] Comment on above: Performed By: #### 3 0965 #### [facility] [address] [place] [address], [facility] Color (U) YELLOW Normal YELLOW The [facility] Comment on above: Performed By: #### 3 0965 #### [facility] [address] [facility] [address], [facility] Glucose [Mass/Vol] 150 mg/dL Abnormal NEGATIVE [facility] Comment on above: Performed By: #### 3 0965 #### [facility] [address] [facility] [address], [facility] KETONE Negative Normal NEGATIVE The [facility] Comment on above: Performed By: #### 3 0965 #### [facility] [address] [facility] [address], [facility] [place] Negative Normal NEGATIVE The [facility] Comment on above: Performed By: #### 3 0965 #### [facility] [address] [place] [address], [place] MICRO NOT DONE negative chemical reactions unless requested in original order Normal The [facility] Comment on above: Performed By: #### 3 0965 #### [facility] [address] [facility] [place] [address], [facility] Nitrite Ql (U) Negative Normal NEGATIVE The [facility] Comment on above: Performed By: #### 3 0965 #### [facility] [address] [place] [address], [facility] pH (Bld) 5.0 Normal 5.0-8.0 [facility] Comment on above: Performed By: #### 3 0965 #### [facility] [address] [facility] [place] [address], [facility] Protein (U) [Mass/Vol] Negative Normal NEGATIVE The [facility] Comment on above: Performed By: #### 3 0965 #### [facility] [address] SPEC GRAV 1.024 High 1.015-1.020 [facility] Comment on above: Performed By: #### 3 0965 #### [facility] [address] Vital Signs Date Time Vital Sign Value Performing Clinician Facility 07-03-2024 14:45-0400 Body height 188 cm Rubén Geiger MD Work Phone: [facility] 07-03-2024 14:45-0400 Body mass index (BMI) [Ratio] 37.62 kg/m2 Rubén Geiger MD Work Phone: [facility] 07-03-2024 14:45-0400 Body weight 132.9 kg Rubén Geiger MD Work Phone: [facility] 02-25-2022 10:30-0400 Blood Pressure Location Viola Grullon [facility] 02-25-2022 10:30-0400 Diastolic blood pressure 107 mm[Hg] Viola Lue [facility] 02-25-2022 10:30-0400 Heart rate 74 /min Viola Lue [facility] 02-25-2022 10:30-0400 Respiratory rate 16 /min Viola Lue [facility] 02-25-2022 10:30-0400 Systolic blood pressure 157 mm[Hg] Viola Lue [facility] Encounters Encounter Date Encounter Type Care Provider Facility Start: 07-04-2024 End: 07-05-2024 Telephone encounter Rubén Geiger MD Work Phone: [facility] Start: 07-03-2024 End: 07-03-2024 Office outpatient visit 25 minutes Rubén Geiger MD Work Phone: [facility] Comment on above: Excessive daytime sl eepiness (Primary Dx); Obstructive sleep apnea; Primary insomnia; Cubital tunnel syndrome on right Start: 07-03-2024 End: 07-03-2024 ambulatory RUBÉN GEIGER Not Available Start: 07-03-2024 End: 07-03-2024 Bamboo flowsheet Rubén Geiger MD Work Phone: [facility] Start: 07-03-2024 End: 07-03-2024 Bamboo flowsheet Rubén Geiger MD Work Phone: [facility] Start: 03-27-2024 End: 03-27-2024 ambulatory RUBÉN GEIGER Not Available Start: 01-10-2024 End: 01-10-2024 ambulatory VALENCIA DE LEÓN Not Available Start: 01-03-2024 End: 01-03-2024 [facility] Work Phone: Start: 01-03-2024 End: 01-03-2024 Departed Referred DPM Trey Vallejo Work Phone: [facility] Start: 12-29-2023 End: 12-29-2023 ambulatory RUBÉN GEIGER Not Available Start: 11-29-2023 End: 11-30-2023 ambulatory Andrius Vytautas Giedraitis Facility:[facility] Start: 10-18-2023 End: 10-19-2023 ambulatory Andrius Juanytautas Christianneitis Facility:[facility] Start: 09-27-2023 End: 09-27-2023 ambulatory RUBÉN GEIGER Not Available Start: 08-30-2023 End: 08-31-2023 ambulatory Andrius Vytautas Christianneitis Facility:[facility] Start: 07-12-2023 End: 07-13-2023 ambulatory Andrius Vytautas Gieditis Facility:[facility] Start: 06-14-2023 End: 06-15-2023 ambulatory Andrius Vytautas Christianneitis Facility:[facility] Start: 12-06-2022 End: 12-06-[address] VENUS MENDEZ . Facility: Start: 12-05-2022 Encounter for genera l adult medical examination without abnormal findings DR VENUS MENDEZ . The [facility] Start: 12-01-2022 End: 12-02-[address] VENUS [...] procedure Viola WhittMarilee Grullon [facility] Start: 01-04-2022 End: 01-05-[address] VENUS MENDEZ . Facility: Start: 01-30-2019 End: 02-01-2019 Evaluation and management of inpatient PROVIDER UNKNOWN Facility:[facility] Start: 08-17-2018 End: 08-18-2018 Patient encounter procedure PROVIDER UNKNOWN Facility:[facility] Procedures Date Procedure Procedure Detail Performing Clinician Start: 12-01-[address] FRANKLIN MENDEZ . Comment on above: Performed By: #### P [facility] #### [facility] [address] [place] [address] Dr. Shabnam Rae Start: 01-30-2019 FUSION CERV JT W INT BD FUS DEV, ANT APPR A COL, OPEN [facility] Start: 01-30-2019 REMOVAL OF INT FIX F ROM CERVCAL VERTEBRA, OPEN APPROACH [facility] Start: 01-23-2019 Antibody screen PROVIDE R UNKNOWN Comment on above: Performed By: #### 5 7307, 10350 #### [facility] [address] Start: 08-17-2018 ANESTH SPINE CORD SURGERY [...] units Performed By: #### 6 2586 #### [facility] [address] Start: 02-08-1998 H/O: vasectomy History of vasectomy Rubén Geiger MD Work Phone: Colonoscopy Viola Grullon Hemorrhoids (disorder) Viola Grullon Hernia of abdominal cavity (disorder) Viola Grullon Tonsillectomy Viola Grullon Plan of Treatment Date Care Activity Detail Author Start: 10-04-2024 End: 10-04-2024 Patient encounter procedure 10/04/2024 2:20 PM EST Office Visit [facility] [address] [phone] Rubén Geiger MD [address] [facility] [address] [id number] [facility] Start: 07-03-2024 End: 07-03-2024 Patient encounter procedure 07/03/2024 2:40 PM EDT Office Visit [facility] [address] [address] Rubén Geiger MD 53[address] [facility] [address] [address] Arrived [facility] Comment on above: Arrived Start: 05-14-2024 Influenza vaccination Influenza Vacc ine (#1) [facility] Start: 1970 Screening for malign ant neoplasm of colon [facility] Immunizations Immunization Date Immunization Notes Care Provider Fa cili 07-06-2023 influenza virus vacc ine, unspecified formulation Rubén Geiger MD Work Phone: [facility] Healthcare Payers Date Payer Category Payer Self-pay [id number] 2022 Medicaid [facility] [id number] 2022 Medicaid [id number] 2022 Unknown 1970 Unknown [id number] 2.16.840.1.390842.3.579.2.647 1970 Unknown [id number] 2.16.840.1.480128.3.579.2.647 1970 Unknown [id number] 2.16.840.1.143921.3.579.2.593 1970 Unknown [id number] 2.16.840.1.949666.3.579.2.593 1970 Unknown [id number] 2.16.840.1.738043.3.579.2.593 1970 Unknown [id number] 2.16.840.1.878844.3.579.2.593 1970 Unknown [id number] 2.16.840.1.140810.3.579.2.593 1970 Unknown [id number] 2.16.840.1.389737.3.579.2.593 1970 Unknown [id number] 2.16.840.1.152344.3.579.2.196 1970 Unknown [id number] 2.16.840.1.200016.3.579.2.196 1970 Unknown [id number] 2.16.840.1.210385.3.579.2.196 1970 Unknown [id number] 2.16.840.1.216598.3.579.2.196 1970 Unknown [id number] 2.16.840.1.684985.3.579.2.196 1970 Unknown [id number] 2.16.840.1.495860.3.579.2.9 1970 Unknown [id number] 2.16.840.1.956665.3.579.2.9 1970 Unknown [id number] 2.16.840.1.365331.3.579.2.1258 1970 Unknown [id number] 2.16.840.1.556459.3.579.2.1258 1970 Unknown [id number] 2.16.840.1.965596.3.579.2.1258 1970 Unknown [id number] 2.16.840.1.412414.3.579.2.9 1959 Unknown [id number] Unknown [id number] Unknown [id number] 2.16.840.1.394914.3.579.2.531 Social History Date Type Detail Facility Tobacco smoking status No Smokin g Status Entered [facility] [employer] Start: 03-27-2024 End: 07-03-2024 Sex Assigned At Male [facility] [employer] Start: 05-15-2018 Tobacco smoking stat [facility] Ex-smoker (finding) [facility] Start: 1970 Sex Assigned At Male [facility] Start: 03-11-2023 [facility] Start: 03-11-2023 Tobacco use and exposure Smokeless tobacco non-user [facility] Start: 03-27-2024 End: 07-03-2024 Alcoholic beverage intake Ex-drinker (finding) [facility] Start: 03-27-2024 End: 07-03-2024 History of Social function [facility] Start: 1970 Sex assigned at Not on file [facility] Functional Status Date Assessment Result Facility 02-25-2022 Functional Status N/A [facility] Clinical Notes 02-25-2022 to 07-04-2024 Telephone Encounter [...] help boost energy in the morning. [facility] [employer] [facility] [place]. [facility] 07-04-2024 Miscellaneous Notes left message regarding prescriptions earlier today and not being at pharmacy. I did call back and spoke to advising they were sent this afternoon. had mentioned Dr. Geiger was also going to start a Vitamin B to help boost energy in the morning. [facility] [place]. documented in this encounter [facility] 07-03-2024 History of Presen t illness Narrative [...] 1 mg, Oral, 2 times daily HYDROcodone-acetaminophen (Kent) 5-325 MG tablet hydrOXYzine pamoate (Vistaril) 25 [...] reflexes: Alycia's absent. Ankle clonus absent. Coordination Jsmvjm-[id number]-[id number], rapid alternating movements and ilri-iz-fltm normal bilaterally without dysmetria. Gait Normal casual, [...] 3 months. documented in this encounter [facility] 06-09-2023 Note [facility] Continue GDMT- Diuretic therapy Monitor daily weights, I&O, fluid restriction 1.5-2L/day, renal function and electrolytes- [facility] 03-26-2022 Note PROCEDURE: XR FOOT L T [...] authenticated by: ALVINA CAICEDO Date: 2022-03-26 10:47 [facility] 02-25-2022 Hospital Discharg e instructions Patient Education [...] Watch the hydrocele for any changes. Take etwu-fdw-qvgzvfl and prescription medicines only as told by [...] 02/17/2011 Document Revised: 09/10/2018 Document Reviewed: 09/10/2018 [employer] Patient Education 2020 [employer]. Follow Up Care 01/28/2022 10:36:35 With:Mitchel DELGADO, [place] Gregorio, [place] Address: When: Unknown [facility] Evaluation + Plan note No data available for this section [facility] Evaluation note No assessment inform ation available [facility] Work Phone: Evaluation note Diagnosis Excessive daytime sleepiness- Primary Obstructive sleep apnea Obstructive sleep apnea (adult) (pediatric) Primary insomnia Persistent disorder of initiating or maintaining sleep Cubital tunnel syndrome on right [facility] Diagnosis Excessive daytime sleepiness- Primary [facility] No data available for this section [facility] Summary Purpose Family History No Family History Records FoundNo Family History Records FoundNo Family History Records FoundNo Family History Records FoundNo Family History Records FoundNo Family History Records FoundNo Family History Records Found Advance Directives Advance Directive Response Recorded Date/ Time Advance Directives No May 12:42pm Hospital Course Note MR#: [id number] [facility] Pt. Name: Matty Garces Admitted: 01/30/2019 [...] section and content) DATE CREATED AUTHOR 07/19/2019 [facility] DATE CREATED AUTHOR AUTHOR'S ORGANIZ ATION 02/27/2022 [facility] DATE CREATED AUTHOR AUTHOR'S ORGANIZ ATION 12/08/2022 [facility] DATE CREATED AUTHOR AUTHOR'S ORGANIZ ATION 06/17/2023 [facility] DATE CREATED AUTHOR AUTHOR'S ORGANIZ ATION 12/03/2023 [facility] DATE CREATED AUTHOR AUTHOR'S ORGANIZ ATION 03/28/2024 [facility] DATE CREATED AUTHOR AUTHOR'S ORGANIZ ATION 07/05/2024 [facility] EPIC Care Team (unrecognized sect ion and content) Team Status: Inactive Member Role Status Dates Trey Vallejo DPM MS Attending Provider Active Start: January 03, 2024 End: January 03, 2024 Senior Vice President Relationship Specialty Start Date End Date Venus Mendez MD [address] [place] [phone] PCP - General Family Medicine 01/10/24 Senior Vice President Relationship Specialty Start Date End Date Venus Mendez MD [address] [place] [phone] PCP - General Family Medicine 01/10/24 Senior Vice President Relationship Specialty Start Date End Date Venus Mendez MD [address] [place] [phone] PCP - General Family Medicine 01/10/24 Goals [...] BE BASED ON THE PRIMARY CLINICAL RECORDS. [employer] [facility]. provides no warranty or guarantee of the accuracy or completeness of information in this document.
[2024-08-22 15:04] LABS: Erythrocyte Sedimentation Rate 51 mm/hr (<=20)
[2024-08-22 15:18] LABS: Anion Gap 9.2; BUN Creatinine Ratio 11.6; C Reactive Protein 0.54 mg/dL (<=0.50); Calcium 9.2 mg/dL (8.5-10.1); Carbon Dioxide 29.2 mmol/L (21.0-32.0); Chloride 103 mmol/L (98-107); Estimated GFR (African America >60 (>=60 mL/min/1.73m^2); Estimated GFR (Non-African Ame >60 (>=60 mL/min/1.73m^2); Glucose 134 mg/dL (74-106); Potassium 4.4 mmol/L (3.5-5.1); Sodium 137 mmol/L (136-145)
== END 2024-08-22 14:38 | disposition home or self-care (01) ==
LOC: LAB 14:39
PROVIDERS: PCP Family Medicine; Visit Provider Physician Assistant
DX: L03.116 Cellulitis of left lower limb (principal); L97.529 Non-pressure chronic ulcer of other part of left foot with unspecified severity
CPT/HCPCS: 36415; 80048; 85025; 85652; 86140

== ENCOUNTER 2024-08-29 04:25 | Emergency (ER) | payer MEDICAID, SELFPAY ==
[2024-08-29] VITALS (12 sets, daily range): BP systolic 143–177; BP diastolic 86–105; PULSE 98–109; TEMP 36.7; O2SAT 100; BMI 38.5
--- NOTE | 2024-08-29 04:36 | XR_ITS ---
The [address] [address] Patient Name: MATTY WADE MRN: [id number] date: 1970 Sex: M Assigned Patient Location: ED.MAIN Current Patient Location: Accession/Order Number: [id number] Exam Date: 08/29/2024 05:10 Report Date: 08/29/2024 05:32 At the request of: SUKHDEV MARKER Procedure: XR ankle LT min 3V EXAM: XR foot LT min 3V, XR ankle LT min 3V HISTORY: left foot ulcer, base of great toe COMPARISON: Left ankle radiographs dated 07/04/2024. TECHNIQUE: 3 views of the left ankle and 4 views of the left foot were obtained. FINDINGS: There are postsurgical changes of ORIF of a remote distal left fibular fracture. The fracture line remains visible. There is stable mild lucency about the 2 syndesmotic screws. No acute fracture or dislocation is seen. There is a well-corticated ossific density at the tip of the medial malleolus that is likely related to remote trauma. There are scattered degenerative changes. There is no significant left ankle joint effusion. There is a small Achilles calcaneal enthesophyte. There appears to be some air within the soft tissues between the bases of the first and second toes. No radiographic evidence of osteomyelitis is seen. XR/XR ankle LT min 3V IMPRESSION: 1. There appears to be some air within the soft tissues between the bases of the left first and second toes. No radiographic evidence of osteomyelitis is seen. If there is persistent concern, further evaluation with MRI is recommended. 2. Postsurgical changes as described with stable lucency about the syndesmotic screws, concerning for loosening. Electronically authenticated by: Kristin AMES Date: 08/29/2024 05:32
--- NOTE | 2024-08-29 04:36 | XR_ITS ---
The [address] [address] Patient Name: MATTY WADE MRN: [id number] date: 1970 Sex: M Assigned Patient Location: ED.MAIN Current Patient Location: Accession/Order Number: [id number] Exam Date: 08/29/2024 05:10 Report Date: 08/29/2024 05:32 At the request of: SUKHDEV MARKER Procedure: XR foot LT min 3V EXAM: XR foot LT min 3V, XR ankle LT min 3V HISTORY: left foot ulcer, base of great toe COMPARISON: Left ankle radiographs dated 07/04/2024. TECHNIQUE: 3 views of the left ankle and 4 views of the left foot were obtained. FINDINGS: There are postsurgical changes of ORIF of a remote distal left fibular fracture. The fracture line remains visible. There is stable mild lucency about the 2 syndesmotic screws. No acute fracture or dislocation is seen. There is a well-corticated ossific density at the tip of the medial malleolus that is likely related to remote trauma. There are scattered degenerative changes. There is no significant left ankle joint effusion. There is a small Achilles calcaneal enthesophyte. There appears to be some air within the soft tissues between the bases of the first and second toes. No radiographic evidence of osteomyelitis is seen. XR/XR foot LT min 3V IMPRESSION: 1. There appears to be some air within the soft tissues between the bases of the left first and second toes. No radiographic evidence of osteomyelitis is seen. If there is persistent concern, further evaluation with MRI is recommended. 2. Postsurgical changes as described with stable lucency about the syndesmotic screws, concerning for loosening. Electronically authenticated by: Kristin AMES Date: 08/29/2024 05:32
--- OUTSIDE RECORDS SUMMARY | 2024-08-29 04:36 | XMS_ITS | CCD ---
Author Organization [facility] CliniSymn Care Team Providers Care Emergency Medical Technician/Driver Name Role Phone UNKNOWN, PROVIDER Admitting Unavailable UNKNOWN, PROVIDER Attending Unavailable VENUS MENDEZ Referring Unavailable VENUS MENDEZ Primary Care Unavailable MD Procedure Practitioner Unavailab le UNKNOWN, PROVIDER Surgeon Unavailable MD Procedure Practitioner Unavailab le SANDRA BILL Surgeon Unavailable UNKNOWN, PROVIDER Admitting Unavailable UNKNOWN, PROVIDER Attending Unavailable VENUS MENDEZ Referring Unavailable VENUS MENDEZ Primary Care Unavailable MD Procedure Practitioner Unavailab le UNKNOWN, PROVIDER Surgeon [...] Berkowitz Attending Unavailable CHINO Vallejo Attending Provider [phone] Trey Vallejo Attending Unavailable Trey Vallejo Admitting Unavailable Venus Mendez MD Primary Care Provider RUBÉN GEIGER Attending Unavailable RUBÉN GEIGER Attending Unavailable VALENCIA DE LEÓN Attending Unavailable VALENCIA DE LEÓN Referring Unavailable RUBÉN GEIGER Attending Unavailable RUBÉN GEIGER Attending Unavailable Allergies Allergy Classification Reported Allergen(s) Allergy Type Date of Onset Reaction(s) Facility (1 source) Aspartame Drug Allergy 08-17-[address] [facility] Repository (1 source) avoid; Translations: [Unknown] Propensity to adverse reactions (disorder) 08-17-[address] [facility] (1 source) vitamin B12; Translations: [cyanocobalamin] Drug Allergy Unknown (qualifier value) [facility] (1 source) Acetaminophen / HYDROcodone Drug Allergy [facility] (1 source) Corticosteroids Drug allergy (disorder) [facility] (1 source) fentaNYL Drug Allergy [facility] (1 source) Misc-Food; Translations: [Misc-Food] Food allergy (disorder) [facility] (1 source) Corticosteroids Drug allergy (disorder) 05-14-20 [facility] Repository (4 sources) fentaNYL Drug [...] sources) Opioid Agonist Start: 03-20-2024 HYDROcodone-acet aminophen ([place]) 5-325 MG tablet 03/20/2024 Active amantadine hydrochloride [...] Take with food. . 02/22/2023 Active sennosides, detention 8.6 mg oral tablet (4 sources) Start: [...] by mouth at bedtime. 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; Translations: [OTH GLASS FITTER CURRENT DRUG THERAPY] Onset: 3 Episodic Other [...] Test Name Value Interpretation Reference Range Facility [facility] 01-03-2024 L Specimen: [id number] Received: 01/03/24 Status: SOUT Re Num: [id number] Spec Type: Surgical Subm Dr: Trey Vallejo DPM, MS Tissues: A Bone Fragments - Pathologic Fracture (PROXIMAL PHALANX RIGHT HALLU) Procedures: HE/2, Gross/Micro L5, Decalcification Age/ Patient Sex Location Account Attending Physician Matty Garces 53/M LABELL [id number] Trey Vallejo DPM, MS SPEC NUM: [id number] RECD: 01/03/24 STATUS: GIOVANNI [facility] NUM: [id number] SOFY: 01/03/[address] [facility] [address]: Trye Vallejo DPM, MS ENTERED: 01/03/[address] [facility] [address]: Ayesha Lundberg SPEC TYPE: Surgical [...] Sectioning reveals unremarkable yellow, spongy bone matrix. Director Sports sections are submitted in A1 following decal. Clinical history: Non-pressure chronic ulcer . Right hallux IPJ arthroplasty with wound debridement and graft application TW Specimen: [id number] Received: 01/03/24 Status: GIOVANNI Ophelia Num: [id number] Spec Type: Surgical Subm Dr: Trey Vallejo DPM, MS Tissues: A Bone Fragments - Pathologic Fracture (PROXIMAL PHALANX RIGHT HALLU) Procedures: HE/2, Gross/Micro L5, Decalcification Patient: Matty Garces [id number] (Continued) Specimen: [id number] Received: 01/03/24 (Continued) Signed (signature on file) Viral Rae MD 01/06/24 1838 Specimen: [id number] Received: 01/03/24 Status: GIOVANNI Jacinto Num: [id number] Spec Type: Surgical Subm Dr: Trey Vallejo,DPJose Eduardo, MS Tissues: A Bone Fragments - Pathologic Fracture (PROXIMAL PHALANX RIGHT HALLU) Procedures: HE/2, Gross/Micro L5, Decalcification Patient: Matty Garces [id number] (Continued) Specimen: [id number] Received: 01/03/24 (Continued) CPT Codes 68982 Specimen: [id number] Received: 01/03/24 Status: GIOVANNI Jacinto Num: [id number] Spec Type: Surgical Subm Dr: Trey Vallejo,CHINO, MS Tissues: A Bone Fragments - Pathologic Fracture (PROXIMAL PHALANX RIGHT HALLU) Procedures: HE/2, Gross/Micro L5, Decalcification Patient: Matty Garces [id number] (Continued) Signed (signature on file) Kuldip-Christopher Rae MD 01/06/24 1838 Normal [facility] CT CSPINE WO CONon CT [...] Anterior corpectomy at C5-C6. Electronically authenticated by: Andrew Michaels LtdOR SAID Date: 2022-12-06 06:37 [address] [facility] [address] FACIAL BONES WO CONon CT [...] maxillary sinus mucoperiosteal thickening Electronically authenticated by: Andrew Michaels LtdOR SAID Date: 2022-12-06 06:[address] [facility] [address] HEAD WO CONon 12-06-2022 CT [...] ANGEL JORDAN Date: 2022-12-06 06:39 Normal [facility] XR ELBOW RT MIN 3 VIEWSon XR ELBOW RT MIN 3 VIEWS Exam: Radiographs: XR ELBOW RT MIN 3 VIEWS Reason for exam: Elbow pain Comparison: None IMPRESSION: Right elbow degenerative changes. Olecranon spur. Remainder of the right elbow is unremarkable. Electronically authenticated by: MICHAEL CASANOVA Date: 2022-12-06 07:22 Normal [facility] XR FOREARM RT 2Von XR FOREARM RT 2V Exam: Radiographs: XR FOREARM RT 2V Reason for exam: Forearm pain Comparison: None IMPRESSION: Mild degenerative changes in the right elbow and wrist. Right forearm is otherwise unremarkable. Electronically authenticated by: MICHAEL CASANOVA Date: 2022-12-06 08:07 Normal [facility] PSA, FREE AND TOTAL RATIOon 12-03-2022 % Free PSA 9.0 % Normal [facility] Comment on above: Result Comment: The [...] men. Performed By: #### P SAFREE #### [facility] [address] [place] [address] Dr. Shabnam Rae Prostate specific Ag [Mass/Vol] 5.9 ng/mL Critically high 0.0-4.0 [facility] Comment on above: Result Comment: Tanja BRANTLEY methodology. . According to the [employer], Serum PSA should decrease and [...] disease. Performed By: #### P SAFREE #### [facility] [address] [address] [address] Shabnam Rae PSA, Free 0.53 ng/mL Normal N/A [facility] Comment on above: Result Comment: Tanja ayala ECLIA methodology. Performed By: #### P SAFREE #### [facility] [address] [address] [address] Shabnam Rae INSULINon 12-02-2022 Insulin 20.2 uIU/mL Normal 2.6-24.9 [facility] Comment on above: Performed By: #### P SASC #### [facility] [address] [address] [address] Shabnam Rae TESTOSTERONE, TOTALon 2022 Testosterone [Mass/Vol] 256 ng/dL Critically low 264-916 [facility] Comment on above: Result Comment: Adul t male reference interval is based on a population of healthy nonobese males (BMI <30) between 19 and 39 years old. adia Ch.al. JCEM 2017,102;6424-5396. PMID: [id number]. Performed By: #### P SASC #### [facility] [address] [address] [address] Shabnam Rae CBC AUTO DIFFon 12-01-2022 BASO # 0.1 103/ul Normal 0.0-0.1 [facility] Comment on above: Performed By: #### P SASC #### [facility] [address] [address] [address] Shabnam Rae Basophils/100 WBC (Bld) 1.0 % Normal 0.2-2.0 [facility] Comment on above: Performed By: #### P SASC #### [facility] [address] [place] [address] Dr. Shabnam Rae EO # 0.1 103/ul Normal 0.0-0.7 [facility] Comment on above: Performed By: #### P SASC #### [facility] [address] [place] [address] Dr. Shabnam Rae Eosinophils/100 WBC (Bld) 1.8 % Normal 0.9-7.0 [facility] Comment on above: Performed By: #### P SASC #### [facility] [address] [place] [address] Dr. Shabnam Rae Erythrocyte distribution width (RBC) [Ratio] 14.8 % Normal 11.0-15.0 [facility] Comment on above: Performed By: #### P SASC #### [facility] [address] [place] [address] Dr. Shabnam Rae Hematocrit (Bld) [Volume fraction] 49.9 % Normal 42.0-54.0 [facility] Comment on above: Performed By: #### P SASC #### [facility] [address] [place] [address] Dr. Shabnam Rae Hemoglobin (Bld) [Mass/Vol] 16.0 g/dL Normal 14.0-18.0 [facility] Comment on above: Performed By: #### P SASC #### [facility] [address] [place] [address] Dr. Shabnam Rae IG # 0.04 10e3/ul Critically high 0.00-0.[address] [facility] Comment on above: Performed By: #### P SASC #### [facility] [address] [place] [address] Dr. Shabnam Rae IG % 0.6 % Critically high 0.0-0.5 [facility] Comment on above: Performed By: #### P SASC #### [facility] [address] [place] [address] Dr. Shabnam Rae LYMPH # 1.0 103/ul Critically low 1.2-3.8 [facility] Comment on above: Performed By: #### P SASC #### [facility] [address] [place] [address] Dr. Shabnam Rae Lymphocytes/100 WBC (Bld) 16.2 % Critically low 20.5-60.0 [facility] Comment on above: Performed By: #### P SASC #### [facility] [address] [place] [address] Dr. Shabnam Rae MANUAL DIFF REQ NO Normal [facility] Comment on above: Performed By: #### P SASC #### [facility] [address] [place] [address] Dr. Shabnam Rae MCH (RBC) [Entitic mass] 27.7 pg Normal 25.9-34.0 [facility] Comment on above: Performed By: #### P SASC #### [facility] [address] [place] [address] Dr. Shabnam Rae MCHC (RBC) [Mass/Vol] 32.1 g/dL Normal 29.9-35.2 [facility] Comment on above: Performed By: #### P SASC #### [facility] [address] [place] [address] Dr. Shabnam Rae MCV (RBC) [Entitic vol] 86.3 fL Normal 80.0-94.0 [facility] Comment on above: Performed By: #### P SASC #### [facility] [address] [place] [address] Dr. Shabnam Rae MONO # 0.5 103/ul Normal 0.3-0.8 [facility] Comment on above: Performed By: #### P SASC #### [facility] [address] [place] [address] Dr. Shabnam Rae Monocytes/100 WBC (Bld) 7.6 % Normal 1.7-12.0 [facility] Comment on above: Performed By: #### P SASC #### [facility] [address] [place] [address] Dr. Shabnam Rae NEUT # 4.6 103/ul Normal 1.4-6.5 [facility] Comment on above: Performed By: #### P SASC #### [facility] [address] [address] [address] Shabnam Rae Neutrophils/100 WBC (Bld) 72.8 % Normal 43.0-75.0 [facility] Comment on above: Performed By: #### P SASC #### [facility] [address] [address] [address] Shabnam Rae Platelet mean volume (Bld) [Entitic vol] 9.8 fL Normal 9.5-13.5 [facility] Comment on above: Performed By: #### P SASC #### [facility] [address] [place] [address] Dr. Shabnam Rae PLT 203 103/ul Normal 150-450 [facility] Comment on above: Performed By: #### P SASC #### [facility] [address] [place] [address] Dr. Shabnam Rae RBC 5.78 106/ul Normal 4.70-6.10 [facility] Comment on above: Performed By: #### P SASC #### [facility] [address] [place] [address] Dr. Shabnam Rae WBC 6.3 103/ul Normal 4.0-11.0 [facility] Comment on above: Performed By: #### P SASC #### [facility] [address] [place] [address] Dr. Shabnam Rae FREE THYROXINE INDEX T7on FTI 2.05 Normal 1.30-4.50 [facility] Comment on above: Performed By: #### T SH, CMP, LIPID, T7, URIC #### [facility] [address] [place] [address] Dr. Shabnam Rae T3U 33.0 % Normal 33.0-40.0 [facility] Comment on above: Performed By: #### T SH, CMP, LIPID, T7, URIC #### [facility] [address] [place] [address] Dr. Shabnam Rae T4 [Mass/Vol] 6.20 ug/dL Normal 4.50-12.10 [facility] Comment on above: Performed By: #### T SH, CMP, LIPID, T7, URIC #### [facility] [address] [address] [address] Shabnam Rae GLYCOHEMOGLOBIN A1Con 2022 ADA RECOMMENDATION SEE BELOW Normal [facility] Comment on above: Result Comment: ADA RECOMMENDED LIMIT 4.0 - 6.0 ADA THERAPEUTIC TARGET < 7.0 ACTION SUGGESTED > 7.0 Performed By: #### P SASC #### [facility] [address] [address] [address] Shabnam Rae Glucose [Mass/Vol] 114 mg/dL Normal [facility] Comment on above: Performed By: #### P SASC #### [facility] [address] [address] [address] Shabnam Rae HbA1c (Bld) [Mass fraction] 5.6 % Normal 4.5-6.2 [facility] Comment on above: Performed By: #### P SASC #### [facility] [address] [address] [address] Shabnam Rae LIPID PROFILEon 12-01-2022 CHOL-HDL RATIO NORM SEE BELOW Normal [facility] Comment on above: Result Comment: 3.3 - 4.4 LOW RISK 4.4 - 7.1 AVERAGE RISK 7.1 - 11.0 MODERATE RISK >11.0 HIGH RISK Performed By: #### T SH, CMP, LIPID, T7, URIC #### [facility] [address] [address] [address] Shabnam Rae Cholesterol [Mass/Vol] 176 mg/dL Normal <=200 [facility] Comment on above: Performed By: #### T SH, CMP, LIPID, T7, URIC #### [facility] [address] [address] [address] Shabnam Rae Cholesterol in HDL [Mass/Vol] 48 mg/dL Normal 40-60 [facility] Comment on above: Performed By: #### T SH, CMP, LIPID, T7, URIC #### [facility] [address] [address] [address] Shabnam Rae Cholesterol in LDL [Mass/Vol] 108.2 mg/dL Normal [facility] Comment on above: Performed By: #### T SH, CMP, LIPID, T7, URIC #### [facility] [address] [address] [address] Shabnam Rae Cholesterol.total/Ch olesterol in HDL [Mass ratio] 3.7 {ratio} Normal [facility] Comment on above: Performed By: #### T SH, CMP, LIPID, T7, URIC #### [facility] [address] [address] [address] Shabnam Rae HDL NORMAL > or = 60 mg/dl - LOW CARDIOVASCULAR RISK <40 mg/dl - HIGH CARDIOVASCULAR RISK Normal [facility] Comment on above: Performed By: #### T SH, CMP, LIPID, T7, URIC #### [facility] [address] [address] [address] Shabnam Rae LDL CALC NORMAL SEE BELOW Normal [facility] Comment on above: Result Comment: <100 mg/dl OPTIMAL 100 - 129 mg/dl NEAR OR ABOVE OPTIMAL 130 - 159 mg/dl BORDERLINE HIGH 160 - 189 mg/dl HIGH >190 mg/dl VERY HIGH Performed By: #### T SH, CMP, LIPID, T7, URIC #### [facility] [address] [address] [address] Shabnam Rae Triglyceride [Mass/Vol] 99 mg/dL Normal <=150 [facility] Comment on above: Performed By: #### T SH, CMP, LIPID, T7, URIC #### [facility] [address] [address] [address] Shabnam Rae VLDL CALC 19.8 mg/dL Normal [facility] Comment on above: Performed By: #### T SH, CMP, LIPID, T7, URIC #### [facility] [address] [address] [address] Shabnam Rae PROF 14(COMP METB)on 023 Albumin [Mass/Vol] 4.1 g/dL Normal 3.4-5.0 [facility] Comment on above: Performed By: #### T SH, CMP, LIPID, T7, URIC #### [facility] [address] [address] [address] Shabnam Rae Albumin/Globulin [Mass ratio] 1.1 {ratio} Normal [facility] Comment on above: Performed By: #### T SH, CMP, LIPID, T7, URIC #### [facility] [address] [address] [address] Shabnam Rae ALP [Catalytic activity/Vol] 101 U/L Normal 46-116 [facility] Comment on above: Performed By: #### T SH, CMP, LIPID, T7, URIC #### [facility] [address] [place] [address] Dr. Shabnam Rae ALT [Catalytic activity/Vol] 26 U/L Normal 16-63 [facility] Comment on above: Performed By: #### T SH, CMP, LIPID, T7, URIC #### [facility] [address] [place] [address] Dr. Shabnam Rae Anion gap [Moles/Vol] 10.1 mmol/L Normal [facility] Comment on above: Performed By: #### T SH, CMP, LIPID, T7, URIC #### [facility] [address] [place] [address] Dr. Shabnam Rae AST [Catalytic activity/Vol] 19 U/L Normal 15-37 [facility] Comment on above: Performed By: #### T SH, CMP, LIPID, T7, URIC #### [facility] [address] [address] [address] Shabnam Rae Bilirubin [Mass/Vol] 0.8 mg/dL Normal 0.2-1.0 [facility] Comment on above: Performed By: #### T SH, CMP, LIPID, T7, URIC #### [facility] [address] [place] [address] Dr. Shabnam Rae Calcium [Mass/Vol] 9.5 mg/dL Normal 8.5-10.1 [facility] Comment on above: Performed By: #### T SH, CMP, LIPID, T7, URIC #### [facility] [address] [address] [address] Shabnam Rae Chloride [Moles/Vol] 102 mmol/L Normal 98-107 [facility] Comment on above: Performed By: #### T SH, CMP, LIPID, T7, URIC #### [facility] [address] [address] [address] Shabnam Rae CO2 [Moles/Vol] 32.4 mmol/L Critically high 21.0-32.0 [facility] Comment on above: Performed By: #### T SH, CMP, LIPID, T7, URIC #### [facility] [address] [address] [address] Shabnam Rae Creatinine [Mass/Vol] 1.00 mg/dL Normal 0.70-1.30 [facility] Comment on above: Performed By: #### T SH, CMP, LIPID, T7, URIC #### [facility] [address] [address] [address] Shabnam Rae EGFR-AF TRISTANIAN >60 Normal >=60 [facility] Comment on above: Performed By: #### T SH, CMP, LIPID, T7, URIC #### [facility] [address] [address] [address] Shabnam Rae EGFR-NON AF TRISTANIAN >60 Normal >=60 [facility] Comment on above: Performed By: #### T SH, CMP, LIPID, T7, URIC #### [facility] [address] [address] [address] Shabnam Rae Globulin (S) [Mass/Vol] 3.8 g/dL Normal [facility] Comment on above: Performed By: #### T SH, CMP, LIPID, T7, URIC #### [facility] [address] [address] [address] Shabnam Rae Glucose [Mass/Vol] 94 mg/dL Normal 74-106 [facility] Comment on above: Performed By: #### T SH, CMP, LIPID, T7, URIC #### [facility] [address] [address] [address] Shabnam Rae Potassium [Moles/Vol] 3.5 mmol/L Normal 3.5-5.1 [facility] Comment on above: Performed By: #### T SH, CMP, LIPID, T7, URIC #### [facility] [address] [place] [address] Dr. Shabnam Rae Protein [Mass/Vol] 7.9 g/dL Normal 6.4-8.2 [facility] Comment on above: Performed By: #### T SH, CMP, LIPID, T7, URIC #### [facility] [address] [place] [address] Dr. Shabnam Rae Sodium [Moles/Vol] 141 mmol/L Normal 136-145 [facility] Comment on above: Performed By: #### T SH, CMP, LIPID, T7, URIC #### [facility] [address] [place] [address] Dr. Shabnam Rae Urea nitrogen [Mass/Vol] 15.0 mg/dL Normal 7.0-18.0 [facility] Comment on above: Performed By: #### T SH, CMP, LIPID, T7, URIC #### [facility] [address] [place] [address] Dr. Shabnam Rae Urea nitrogen/Creatinine [Mass ratio] 15.0 mg/mg Normal [facility] Comment on above: Performed By: #### T SH, CMP, LIPID, T7, URIC #### [facility] [address] [place] [address] Dr. Shabnam Rae TSHon 12-01-2022 TSH 1.504 uIU/mL Normal 0.358-3.740 [facility] Comment on above: Performed By: #### T SH, CMP, LIPID, T7, URIC #### [facility] [address] [place] [address] Dr. Shabnam Rae URIC ACID SERUMon 12-01-2022 Urate [Mass/Vol] 6.9 mg/dL Normal 3.5-7.2 [facility] Comment on above: Performed By: #### T SH, CMP, LIPID, T7, URIC #### [facility] [address] [place] [address] Dr. Shabnam Rae TESTOSTERONE, TOTALon 2021 Testosterone [Mass/Vol] 244 ng/dL Critically low 264-916 [facility] Comment on above: Result Comment: Adul t male reference interval is based on a population of healthy nonobese males (BMI <30) between 19 and 39 years old. Dima, et.al. EM 2017,102;7571-3167. PMID: [id number]. Performed By: #### P SAFREE #### [facility] [address] [place] [address] Dr. Shabnam Rae TESTOSTERONE, FREE,DIRECT, T OTALon 03-16-2022 Free Testosterone(Direct) 2.1 pg/mL Critically low 7.2-24.0 [facility] Comment on above: Result Comment: Perf ormed at: BN Performed By: #### C VDTBH #### [facility] [address] [place] [address] Dr. Shabnam Rae Testosterone [Mass/Vol] 252 ng/dL Critically low 264-916 [facility] Comment on above: Result Comment: Adul t male reference interval is based on a population of healthy nonobese males (BMI <30) between 19 and 39 years old. Travison, et.al. JCEM 2017,102;5223-1745. PMID: 08510098. Performed at: CB Performed By: #### C VDTBH #### [facility] [address] [place] [address] Dr. Shabnam Rae Formson 02-26-2022 Forms [id number] 7#1.00CD:127 Normal [facility] Screenson 02-26-2022 Screens [id number] 7#1.00CD:127 Normal [facility] Screens [id number] #1.00CD:127 Normal [facility] Urology Office/Clinic Noteon 02-26-2022 Urology [...] qualifying data (more content not included)... Normal [facility] Comment on above: Result [...] Urnls Dip Stick Auto w/o Microscopy POC 71228 Your Care Team Attending Physician - Viola [...] Urnls Dip Stick Auto w/o Microscopy POC 08168 (02/25/2022) Bilirubin Urine Dipstick - Negative Blood Urine Dipstick - Negative Glucose Urine Dipstick - Negative Ketones Urine Dipstick - Negative Leukocytes Urine Dipstick - Negative Nitrite Urine Dipstick - Negative Protein Urine Dipstick - Negative Specific Somers Urine Dipstick - >=1.030 Urine Appearance Urine [...] the hydrocele for any changes. ? Take ythx-rlo-cvtecwk and prescription medicines only as told by [...] intended t (more content not included)... Normal [facility] Patient Educationon 02-26-20 Patient Education [...] the hydrocele for any changes. ? Take eeol-ktm-dxljixu and prescription medicines only as told by [...] 02/17/2011 Document Revised: 09/10/2018 Document Reviewed: 09/10/2018 [employer] Patient Education ? 2019 [employer]. Normal [facility] ED Note-Physicianon 02-04-20 ED Note-Physician [id number] 62#1.00CD:127 Normal [facility] RAD - Ultrasound Reporton RAD - Ultrasound Report [id number] #1.00CD:127 Normal [facility] RAD - CT Reporton 02-02-2022 RAD - CT Report [id number] 55#1.00CD:127 [facility] RAD - CT Report [id number] Normal [facility] CBC AUTO DIFFon 01-05-2022 BASO # 0.0 103/ul Normal 0.0-0.1 [facility] Comment on above: Performed By: #### P SAFREE #### [facility] [address] [place], [place] [address] Dr. Shabnam Rae Basophils/100 WBC (Bld) 0.6 % Normal 0.2-2.0 [facility] Comment on above: Performed By: #### P SAFREE #### [facility] [address] [address] [address] Shabnam Rae EO # 0.1 103/ul Normal 0.0-0.7 [facility] Comment on above: Performed By: #### P SAFREE #### [facility] [address] [address] [address] Shabnam Rae Eosinophils/100 WBC (Bld) 2.1 % Normal 0.9-7.0 [facility] Comment on above: Performed By: #### P SAFREE #### [facility] [address] [place] [address] Dr. Shabnam Rae Erythrocyte distribution width (RBC) [Ratio] 13.1 % Normal 11.0-15.0 [facility] Comment on above: Performed By: #### P SAFREE #### [facility] [address] [place] [address] Dr. Shabnam Rae Hematocrit (Bld) [Volume fraction] 43.1 % Normal 42.0-54.0 [facility] Comment on above: Performed By: #### P SAFREE #### [facility] [address] [place] [address] Dr. Shabnam Rae Hemoglobin (Bld) [Mass/Vol] 13.7 g/dL Critically low 14.0-18.0 [facility] Comment on above: Performed By: #### P SAFREE #### [facility] [address] [place] [address] Dr. Shabnam Rae IG # 0.04 10e3/ul Critically high 0.00-0.03 [facility] Comment on above: Performed By: #### P SAFREE #### [facility] [address] [place] [address] Dr. Shabnam Rae IG % 0.6 % Critically high 0.0-0.5 The [facility] Comment on above: Performed By: #### P SAFREE #### [facility] [address] [place] [address] Dr. Shabnam Rae LYMPH # 0.9 103/ul Critically low 1.2-3.8 The [facility] Comment on above: Performed By: #### P SAFREE #### [facility] [address] [address] [address] Shabnam Rae Lymphocytes/100 WBC (Bld) 13.1 % Critically low 20.5-60.0 [facility] Comment on above: Performed By: #### P SAFREE #### [facility] [address] [address] [address] Shabnam Rae MANUAL DIFF REQ NO Normal [facility] Comment on above: Performed By: #### P SAFREE #### [facility] [address] [address] [address] Shabnam Rae MCH (RBC) [Entitic mass] 29.5 pg Normal 25.9-34.0 [facility] Comment on above: Performed By: #### P SAFREE #### [facility] [address] [place] [address] Dr. Shabnam Rae MCHC (RBC) [Mass/Vol] 31.8 g/dL Normal 29.9-35.2 [facility] Comment on above: Performed By: #### P SAFREE #### [facility] [address] [place] [address] Dr. Shabnam Rae MCV (RBC) [Entitic vol] 92.9 fL Normal 80.0-94.0 [facility] Comment on above: Performed By: #### P SAFREE #### [facility] [address] [place] [address] Dr. Shabnam Rae MONO # 0.4 103/ul Normal 0.3-0.8 [facility] Comment on above: Performed By: #### P SAFREE #### [facility] [address] [place] [address] Dr. Shabnam Rae Monocytes/100 WBC (Bld) 5.4 % Normal 1.7-12.0 [facility] Comment on above: Performed By: #### P SAFREE #### [facility] [address] [place] [address] Dr. Shabnam Rae NEUT # 5.2 103/ul Normal 1.4-6.5 [facility] Comment on above: Performed By: #### P SAFREE #### [facility] [address] [address] [address] Shabnam Rae Neutrophils/100 WBC (Bld) 78.2 % Critically high 43.0-75.0 [facility] Comment on above: Performed By: #### P SAFREE #### [facility] [address] [address] [address] Shabnam Rae Platelet mean volume (Bld) [Entitic vol] 10.9 fL Normal 9.5-13.5 [facility] Comment on above: Performed By: #### P SAFREE #### [facility] [address] [address] [address] Shabnam Rae PLT 153 103/ul Normal 150-450 [facility] Comment on above: Performed By: #### P SAFREE #### [facility] [address] [address] [address] Shabnam Rae RBC 4.64 106/ul Critically low 4.70-6.10 [facility] Comment on above: Performed By: #### P SAFREE #### [facility] [address] [address] [address] Shabnam Rae WBC 6.6 103/ul Normal 4.0-11.0 [facility] Comment on above: Performed By: #### P SAFREE #### [facility] [address] [place] [address] Dr. Shabnam Rae CRPon 01-05-2022 CRP 0.9 mg/dL Normal <=1.0 [facility] Comment on above: Performed By: #### P SAFREE #### [facility] [address] [address] [address] Shabnam Rae PROF 14(COMP METB)on 022 Albumin [Mass/Vol] 3.6 g/dL Normal 3.4-5.0 [facility] Comment on above: Performed By: #### P SAFREE #### [facility] [address] [place] [address] Dr. Shabnam Rae Albumin/Globulin [Mass ratio] 1.0 {ratio} Normal [facility] Comment on above: Performed By: #### P SAFREE #### [facility] [address] [address] [address] Shabnam Rae ALP [Catalytic activity/Vol] 114 U/L Normal 46-116 [facility] Comment on above: Performed By: #### P SAFREE #### [facility] [address] [address] [address] Shabnam Rae ALT [Catalytic activity/Vol] 26 U/L Normal 16-63 [facility] Comment on above: Performed By: #### P SAFREE #### [facility] [address] [address] [address] Shabnam Rae Anion gap [Moles/Vol] 9.3 mmol/L Normal [facility] Comment on above: Performed By: #### P SAFREE #### [facility] [address] [place] [address] Dr. Shabnam Rae AST [Catalytic activity/Vol] 19 U/L Normal 15-37 [facility] Comment on above: Performed By: #### P SAFREE #### [facility] [address] [address] [address] Shabnam Rae Bilirubin [Mass/Vol] 0.5 mg/dL Normal 0.2-1.0 [facility] Comment on above: Performed By: #### P SAFREE #### [facility] [address] [place] [address] Dr. Shabnam Rae Calcium [Mass/Vol] 8.9 mg/dL Normal 8.5-10.1 [facility] Comment on above: Performed By: #### P SAFREE #### [facility] [address] [address] [address] Shabnam Rae Chloride [Moles/Vol] 106 mmol/L Normal 98-107 [facility] Comment on above: Performed By: #### P SAFREE #### [facility] [address] [address] [address] Shabnam Rae CO2 [Moles/Vol] 30.7 mmol/L Normal 21.0-32.0 [facility] Comment on above: Performed By: #### P SAFREE #### [facility] [address] [place] [address] Dr. Shabnam Rae Creatinine [Mass/Vol] 1.15 mg/dL Normal 0.70-1.30 [facility] Comment on above: Performed By: #### P SAFREE #### [facility] [address] [place] [address] Dr. Shabnam Rae EGFR-AF TRISTANIAN >60 Normal >=60 [facility] Comment on above: Performed By: #### P SAFREE #### [facility] [address] [place] [address] Dr. Sahbnam Rae EGFR-NON AF TRISTANIAN >60 Normal >=60 [facility] Comment on above: Performed By: #### P SAFREE #### [facility] [address] [place] [address] Dr. Shabnam Rae Globulin (S) [Mass/Vol] 3.6 g/dL Normal [facility] Comment on above: Performed By: #### P SAFREE #### [facility] [address] [place] [address] Dr. Shabnam Rae Glucose [Mass/Vol] 117 mg/dL Critically high 74-106 [facility] Comment on above: Performed By: #### P SAFREE #### [facility] [address] [place] [address] Dr. Shabnam Rae Potassium [Moles/Vol] 4.0 mmol/L Normal 3.5-5.1 [facility] Comment on above: Performed By: #### P SAFREE #### [facility] [address] [place] [address] Dr. Shabnam Rae Protein [Mass/Vol] 7.2 g/dL Normal 6.1-8.2 The [facility] Comment on above: Performed By: #### P SAFREE #### [facility] [address] [place] [address] Dr. Shabnam Rae Sodium [Moles/Vol] 142 mmol/L Normal 136-145 [facility] Comment on above: Performed By: #### P SAFREE #### [facility] [address] [place] [address] Dr. Shabnam Rae Urea nitrogen [Mass/Vol] 15.0 mg/dL Normal 7.0-18.0 [facility] Comment on above: Performed By: #### P SAFREE #### [facility] [address] [place] [address] Dr. Shabnam Rae Urea nitrogen/Creatinine [Mass ratio] 13.0 mg/mg Normal [facility] Comment on above: Performed By: #### P SAFREE #### [facility] [address] [address] [address] Shabnam Rae US SCROTUMon 01-05-2022 US [...] ALVINA CAICEDO Date: 2022-01-05 08:48 Normal [facility] CBC AUTO DIFFon 01-04-2022 BASO # 0.1 103/ul Normal 0.0-0.1 [facility] Comment on above: Performed By: #### C BC #### [facility] [address] [place] [address] Dr. Shabnam Rae Basophils/100 WBC (Bld) 0.8 % Normal 0.2-2.0 [facility] Comment on above: Performed By: #### C BC #### [facility] [address] [place] [address] Dr. Shabnam Rae EO # 0.1 103/ul Normal 0.0-0.7 [facility] Comment on above: Performed By: #### C BC #### [facility] [address] [place] [address] Dr. Shabnam Rae Eosinophils/100 WBC (Bld) 1.5 % Normal 0.9-7.0 [facility] Comment on above: Performed By: #### C BC #### [facility] [address] [place] [address] Dr. Shabnam Rae Erythrocyte distribution width (RBC) [Ratio] 12.8 % Normal 11.0-15.0 [facility] Comment on above: Performed By: #### C BC #### [facility] [address] [place] [address] Dr. Shabnam Rae Hematocrit (Bld) [Volume fraction] 40.3 % Critically low 42.0-54.0 [facility] Comment on above: Performed By: #### C BC #### [facility] [address] [place] [address] Dr. Shabnam Rae Hemoglobin (Bld) [Mass/Vol] 13.4 g/dL Critically low 14.0-18.0 [facility] Comment on above: Performed By: #### C BC #### [facility] [address] [place] [address] Dr. Shabnam Rae IG # 0.03 10e3/ul Normal 0.00-0.03 [facility] Comment on above: Performed By: #### C BC #### [facility] [address] [place] [address] Dr. Shabnam Rae IG % 0.5 % Normal 0.0-0.5 [facility] Comment on above: Performed By: #### C BC #### [facility] [address] [place] [address] Dr. Shabnam Rae LYMPH # 1.0 103/ul Critically low 1.2-3.8 [facility] Comment on above: Performed By: #### C BC #### [facility] [address] [place] [address] Dr. Shabnam Rae Lymphocytes/100 WBC (Bld) 16.4 % Critically low 20.5-60.0 [facility] Comment on above: Performed By: #### C BC #### [facility] [address] [place] [address] Dr. Shabnam Rae MANUAL DIFF REQ NO Normal [facility] Comment on above: Performed By: #### C BC #### [facility] [address] [place] [address] Dr. Shabnam Rae MCH (RBC) [Entitic mass] 29.5 pg Normal 25.9-34.0 [facility] Comment on above: Performed By: #### C BC #### [facility] [address] [place] [address] Dr. Shabnam Rae MCHC (RBC) [Mass/Vol] 33.3 g/dL Normal 29.9-35.2 [facility] Comment on above: Performed By: #### C BC #### [facility] [address] [place] [address] Dr. Shabnam Rae MCV (RBC) [Entitic vol] 88.8 fL Normal 80.0-94.0 [facility] Comment on above: Performed By: #### C BC #### [facility] [address] [place] [address] Dr. Shabnam Rae MONO # 0.6 103/ul Normal 0.3-0.8 [facility] Comment on above: Performed By: #### C BC #### [facility] [address] [place] [address] Dr. Shabnam Rae Monocytes/100 WBC (Bld) 9.6 % Normal 1.7-12.0 [facility] Comment on above: Performed By: #### C BC #### [facility] [address] [place] [address] Dr. Shabnam Rae NEUT # 4.4 103/ul Normal 1.4-6.5 [facility] Comment on above: Performed By: #### C BC #### [facility] [address] [place] [address] Dr. Shabnam Rae Neutrophils/100 WBC (Bld) 71.2 % Normal 43.0-75.0 [facility] Comment on above: Performed By: #### C BC #### [facility] [address] [place] [address] Dr. Shabnam Rae Platelet mean volume (Bld) [Entitic vol] 10.8 fL Normal 9.5-13.5 [facility] Comment on above: Performed By: #### C BC #### [facility] [address] [place] [address] Dr. Shabnam Rae PLT 158 103/ul Normal 150-450 [facility] Comment on above: Performed By: #### C BC #### [facility] [address] [place] [address] Dr. Shabnam Rae RBC 4.54 106/ul Critically low 4.70-6.10 [facility] Comment on above: Performed By: #### C BC #### [facility] [address] [place] [address] Dr. Shabnam Rae WBC 6.2 103/ul Normal 4.0-11.0 [facility] Comment on above: Performed By: #### C BC #### [facility] [address] [place] [address] ABD/PELV W CONon [...] MAYRA BERNAL Date: 2022-01-04 05:19 Normal [facility] CT PELVIS WO CONon CT PELVIS [...] MANUEL BRENNANH Date: 2022-01-04 08:54 Normal [facility] CULTURE URINEon 01-04-2022 CULTURE URINE Culture Observations: No growth Normal [facility] Comment on above: Performed By: #### P [place] #### [facility] [address] [place] [address] Dr. Shabnam Rae Covid-19 PCR ([facility])on 12-13 SARS-CoV-2 (COVID-19) RNA ELIJAH+probe Ql ([facility]) Not detected Normal NOT DETECTED [facility] Comment on above: Result Comment: When diagnostic testing is negative, the possibility of a false negative should be considered in the context of a patient's recent exposures and the presence of clinical signs and symptoms consistent with SARS-CoV-2. This test is not yet approved or cleared by the [place] Food and Drug Administration (FDA). This test was developed by [employer], [place], [place]. The performance characteristics of this test were validated by [facility]. The results are not intended to be used as the sole means for clinical diagnosis or patient management decisions. [facility] is authorized under Clinical Laboratory Improvement [...] for this test is supported by the [place] of Health and Human Service's declaration that [...] used). Performed By: #### C VDTB #### [facility] [address] [place] [address] Dr. Shabnam Rae ER URINE PROFILEon 2 Bilirubin Ql (U) Negative Normal NEGATIVE [facility] Comment on above: Performed By: #### P SASC #### [facility] [address] [place] [address] Dr. Shabnam Rae Clarity (U) CLEAR Normal CLEAR [facility] Comment on above: Performed By: #### P SASC #### [facility] [address] [place] [address] Dr. Shabnam Rae Color (U) YELLOW Normal YELLOW [facility] Comment on above: Performed By: #### P SASC #### [facility] [address] [place] [address] Dr. Shabnam Rae ERUAHD A micrscopic examination will be performed if indicated. Normal [facility] Comment on above: Performed By: #### P SASC #### [facility] [address] [place] [address] Dr. Shabnam Rae Glucose Ql (U) Negative Normal NEGATIVE [facility] Comment on above: Performed By: #### P SASC #### [facility] [address] [place] [address] Dr. Shabnam Rae Hemoglobin Ql (U) Negative Normal NEGATIVE [facility] Comment on above: Performed By: #### P SASC #### [facility] [address] [place] [address] Dr. Shabnam Rae Ketones Ql (U) Negative Normal NEGATIVE [facility] Comment on above: Performed By: #### P SASC #### [facility] [address] [place] [address] Dr. Shabnam Rae LEUKOCYTES Negative Normal NEGATIVE [facility] Comment on above: Performed By: #### P SASC #### [facility] [address] [address] [address] Shabnam Rae Nitrite Ql (U) Negative Normal NEGATIVE [facility] Comment on above: Performed By: #### P SASC #### [facility] [address] [place] [address] Dr. Shabnam Rae pH (U) 6.5 [pH] Normal 5-9 [facility] Comment on above: Performed By: #### P SASC #### [facility] [address] [address] [address] Shabnam Rae SPEC GRAVITY 1.010 Normal 1.005-<=1.025 [facility] Comment on above: Performed By: #### P SASC #### [facility] [address] [place] [address] Dr. Shabnam Rae UA PROTEIN Negative Normal NEGATIVE/ TRACE [facility] Comment on above: Performed By: #### P SASC #### [facility] [address] [place] [address] Dr. Shabnam Rae UR MICRO IND NOT INDICATED Normal [facility] Comment on above: Performed By: #### P SASC #### [facility] [address] [place] [address] Dr. Shabnam Rae Urobilinogen Qn (U) 0.2 {Sarai'U}/dL Normal 0.2 - 1. 0 [facility] Comment on above: Performed By: #### P SASC #### [facility] [address] [place] [address] Dr. Shabnam Rae LACTATE/LACTIC ACIDon 2021 Lactate [Moles/Vol] 1.0 mmol/L Normal 0.4-2.0 [facility] Comment on above: Performed By: #### P SASC #### [facility] [address] [place] [address] Dr. Shabnam Rae PROF CHEM 8 (BAS METB)on Anion gap [Moles/Vol] 10.0 mmol/L Normal [facility] Comment on above: Performed By: #### B MP #### [facility] [address] [address] [address] Shabnam Rae Calcium [Mass/Vol] 8.5 mg/dL Normal 8.5-10.1 [facility] Comment on above: Performed By: #### B MP #### [facility] [address] [address] [address] Shabnam Rae Chloride [Moles/Vol] 103 mmol/L Normal 98-107 [facility] Comment on above: Performed By: #### B MP #### [facility] [address] [address] [address] Shabnam Rae CO2 [Moles/Vol] 29.2 mmol/L Normal 21.0-32.0 [facility] Comment on above: Performed By: #### B MP #### [facility] [address] [address] [address] Shabnam Rae Creatinine [Mass/Vol] 1.25 mg/dL Normal 0.70-1.30 [facility] Comment on above: Performed By: #### B MP #### [facility] [address] [address] [address] Shabnam Rae EGFR-AF TRISTANIAN >60 Normal >=60 [facility] Comment on above: Performed By: #### B MP #### [facility] [address] [address] [address] Shabnam Rae EGFR-NON AF TRISTANIAN >60 Normal >=60 [facility] Comment on above: Performed By: #### B MP #### [facility] [address] [address] [address] Shabnam Rae Glucose [Mass/Vol] 132 mg/dL Critically high 74-106 [facility] Comment on above: Performed By: #### B MP #### [facility] [address] [address] [address] Shabnam Rae Potassium [Moles/Vol] 3.2 mmol/L Critically low 3.5-5.1 [facility] Comment on above: Performed By: #### B MP #### [facility] [address] [address] [address] Shabnam Rae Sodium [Moles/Vol] 139 mmol/L Normal 136-145 [facility] Comment on above: Performed By: #### B MP #### [facility] [address] [address] [address] Shabnam Rae Urea nitrogen [Mass/Vol] 19.0 mg/dL Critically high 7.0-18.0 [facility] Comment on above: Performed By: #### B MP #### [facility] [address] [address] [address] Shabnam Rae Urea nitrogen/Creatinine [Mass ratio] 15.2 mg/mg Normal [facility] Comment on above: Performed By: #### B MP #### [facility] [address] [address] [address] Shabnam Rae CERVICAL SPINE 2 OR 3 [facility] 07-06-2019 CERVICAL SPINE [address] [facility] Department of Radiology [address] [place] [id number] Patient Name: MATTY GARCES : 1970 [...] findings. Electronically signed by:Bernice Hoyt. Transcribed by: [email or web address], User Resident: RADHA CHIN Electronically Signed by: BERNICE HOYT @ 07/06/2019 08:52 PM I personally read this/these film(s) with this resident Normal [facility] Comment on above: Order Comment: , STA T READ , STAT READ , , , Ordering Provider - LUCIANO VIEIRA MD , CERVICAL SPINE 2 OR 3 [facility] 04-06-2019 CERVICAL SPINE 2 OR 3 [facility] Department of Radiology [address] [place] [id number] Patient Name: MATTY GARCES : [...] FALLS Exam: CERVICAL SPINE 2 OR 3 [facility] CERVICAL SPINE 2 OR 3 [facility] 04/06/2019 7:28 AM EDT SIGNS AND [...] study. Electronically signed by:Bernice Hoyt. Transcribed by: [email or web address], User Resident: Electronically Signed by: BERNICE HOYT @ 04/06/2019 04:[address] [facility] Comment on above: Order Comment: AP/LA T, ODONTOID PLEASE DO SWIMMER'S VIEW FOLLOW UP HARDWARE AND ALIGNMENT, S/P ACDF, RECENT FALLS CERVICAL SPINE 2 OR 3 [facility] 02-17-2019 CERVICAL SPINE 2 OR 3 [facility] Department of Radiology [address] [place] [id number] Patient Name: MATTY GARCES : 1970 [...] ALIGNMENT Exam: CERVICAL SPINE 2 OR 3 [facility] CERVICAL SPINE 2 OR 3 [facility] [...] Interval removal of C6-7 ACDF plate. Approved by:Florenitno Tinajero on 02/17/2019 6:24 PM EDT. I, Bella King, have reviewed the images and report and concur with these findings. Electronically signed by:Bella King. Transcribed by: [email or web address], User Resident: EMILE TINAJERO Electronically Signed by: BELLA KING @ 02/20/2019 11:53 AM I personally read this/these film(s) with this resident Normal [facility] Comment on above: Order Comment: C-SPI NE 2 OR 3 VIEW POSTOP, EVALUATION HARDWARE AN ALIGNMENT BASIC METABOLIC PANELon 05-2 Calcium [Mass/Vol] 9.2 mg/dL Normal 8.6-10.3 The [facility] Comment on above: Order Comment: No: D o not add to previous draw Performed By: #### 5 0103 #### [facility] [address] [place] [address], [place] Chloride [Moles/Vol] 101 mmol/L Normal 98-[address] [facility] Comment on above: Order Comment: No: D o not add to previous draw Performed By: #### 5 0103 #### [facility] [address] [place] [address], [place] CO2 [Moles/Vol] 26 mmol/L Normal 21-31 [facility] Comment on above: Order Comment: No: D o not add to previous draw Performed By: #### 5 0103 #### [facility] [address] [place] [address], [facility] Creatinine [Mass/Vol] 1.02 mg/dL Normal 0.70-1.[address] [facility] Comment on above: Order Comment: No: D o not add to previous draw Performed By: #### 5 0103 #### [facility] [address] [place] [address], [facility] GFR/1.73 sq M predicted among blacks MDRD (S/P/Bld) [Vol rate/Area] mL/min/{1.73_m2} Normal >[address] [facility] Comment on above: Order Comment: No: D o not add to previous draw Performed By: #### 5 0103 #### [facility] [address] [place] [address], [facility] GFR/1.73 sq M predicted among non-blacks MDRD (S/P/Bld) [Vol rate/Area] mL/min/{1.73_m2} Normal >[address] [facility] Comment on above: Order Comment: No: D o not add to previous draw Performed By: #### 5 3 #### [facility] [address] [place] [address], [place] Glucose [Mass/Vol] 124 mg/dL High 70-100 [facility] Comment on above: Order Comment: No: D o not add to previous draw Performed By: #### 5 0103 #### [facility] [address] [place] [address], [place] Potassium [Moles/Vol] 3.9 mmol/L Normal 3.5-5.[address] [facility] Comment on above: Order Comment: No: D o not add to previous draw Performed By: #### 5 3 #### [facility] [address] [place] [address], [facility] Sodium [Moles/Vol] 137 mmol/L Normal 136-145 The [facility] Comment on above: Order Comment: No: D o not add to previous draw Performed By: #### 5 0103 #### [facility] [address] [place] [address], [facility] Urea nitrogen [Mass/Vol] 15 mg/dL Normal 7-[address] [facility] Comment on above: Order Comment: No: D o not add to previous draw Performed By: #### 5 0103 #### [facility] [address] [place] [address], [facility] CBC COMPLETE BLOOD COUNTon - Erythrocyte distribution width (RBC) [Ratio] 13.9 % Normal 11.5-15.[address] [facility] Comment on above: Order Comment: No: D o not add to previous draw Performed By: #### 5 0103 #### [facility] [address] [place] [address], [facility] Hematocrit (Bld) [Volume fraction] 50.0 % Normal 39.0-50.[address] [facility] Comment on above: Order Comment: No: D o not add to previous draw Performed By: #### 5 0103 #### [facility] [address] [place] [address], [facility] Hemoglobin (Bld) [Mass/Vol] 16.0 g/dL Normal 13.0-17.[address] [facility] Comment on above: Order Comment: No: D o not add to previous draw Performed By: #### 5 0103 #### [facility] [address] [place] [address], [facility] MCH (RBC) [Entitic mass] 27.5 pg Normal 27.0-33.[address] [facility] Comment on above: Order Comment: No: D o not add to previous draw Performed By: #### 5 0103 #### [facility] [address] [place] [address], [facility] MCHC (RBC) [Mass/Vol] 32.0 g/dL Normal 32.0-35.[address] [facility] Comment on above: Order Comment: No: D o not add to previous draw Performed By: #### 5 0103 #### [facility] [address] [place] [address], [facility] MCV (RBC) [Entitic vol] 85.9 fL Normal 82.0-98.[address] [facility] Comment on above: Order Comment: No: D o not add to previous draw Performed By: #### 5 0103 #### [facility] [address] [facility] [place] [address], [facility] Nucleated RBC/100 WBC (Bld) [Ratio] 0 % Normal 0-[address] [facility] Comment on above: Order Comment: No: D o not add to previous draw Performed By: #### 5 0103 #### [facility] [address] [facility] [place] [address], [facility] PLAT CNT 249 10*3/uL Normal 150-400 The [facility] Comment on above: Order Comment: No: D o not add to previous draw Performed By: #### 5 0103 #### [facility] [address] [facility] [place] [address], [facility] RBC (Bld) [#/Vol] 5.82 10*6/uL High 4.20-5.70 The [facility] Comment on above: Order Comment: No: D o not add to previous draw Performed By: #### 5 0103 #### [facility] [address] [facility] [place] [id number], [facility] WBC (Bld) [#/Vol] 15.85 10*3/uL High 4.00-10.[address] [facility] Comment on above: Order Comment: No: D o not add to previous draw Performed By: #### 5 0103 #### [facility] [address] [facility]. [place], [place] [id number] [place] [address] Operative Reporton 9 Operative Report MR#: [id number] [facility] Pt. Name: Matty Garces Room #: [id number] Discharge Date: Birthdate: 1970 OPERATIVE REPORT DATE OF SURGERY: 01/30/2019 SURGEON: Luciano Vieira M.D. 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 POSTOPERATIVE DIAGNOSIS: Failed instrumentation at C6-7 on the right. PRISON OFFICER: ADENIKE Lugo. ANESTHESIA: Endotracheal, Hogan. PROCEDURES: [...] Vieira M.D. Date Trans: 01/31/2019 02:31 A/sasha [id number] cc: Venus Mendez M.D. [address], [facility] [address] [place] [address] [facility] CERVICAL SPINE 2 OR 3 [facility] 01-30-2019 CERVICAL SPINE 2 OR 3 [facility] Department of Radiology [address] [place] [phone] Patient Name: MATTY GARCES : 1970 [...] documentation Electronically signed by:Justus Montano. Transcribed by: [email or web address], User Resident: Electronically Signed by: JUSTUS MONTANO @ 01/30/2019 04:18 PM Normal [facility] Comment on above: Order Comment: C6-7 ACDF POC GLUCOSE LABon 01-30-2019 Glucose [Mass/Vol] 106 mg/dL High 70-100 [facility] Comment on above: Performed By: #### 5 0103 #### [facility] [address] *MRSA/MSSA DNA NASALon 01-23 *MRSA/MSSA DNA NASAL Clinical Report: (D ) Specimen: NASAL SWAB Collected: 01/23/2019 15:02 Status: Final Last Updated: 01/23/2019 20:14 MSSA DNA (Final) Methicillin Susceptible Staphylococcus aureus DNA Detected MRSA DNA (Final) No Methicillin Resistant Staphylococcus aureus DNA Detected Normal [facility] Comment on above: Performed By: #### 5 0103 #### [facility] [address] APTTon 01-23-2019 aPTT Coag (Bld) [Time] 35.4 s High 25.0-35.0 [facility] Comment on above: Result Comment: [...] THIS PURPOSE. Performed By: #### 5 73, 98620 #### [facility] [address] [place] [address], [facility] BASIC METABOLIC PANELon 05- Calcium [Mass/Vol] 9.5 mg/dL Normal 8.6-10.3 [facility] Comment on above: Performed By: #### 5 Al, 32352 #### [facility] [address] [place] [address], [facility] Chloride [Moles/Vol] 101 mmol/L Normal 98-[address] [facility] Comment on above: Performed By: #### 5 7306, 92693 #### [facility] [address] [place] [address], [facility] CO2 [Moles/Vol] 29 mmol/L Normal 21-31 [facility] Comment on above: Performed By: #### 5 73, 25966 #### [facility] [address] [place] [address], [facility] Creatinine [Mass/Vol] 1.08 mg/dL Normal 0.70-1.[address] [facility] Comment on above: Performed By: #### 5 73, 18005 #### [facility] [address] [place] [address], [facility] GFR/1.73 sq M predicted among blacks MDRD (S/P/Bld) [Vol rate/Area] mL/min/{1.73_m2} Normal >[address] [facility] Comment on above: Performed By: #### 5 73, 97712 #### [facility] [address] [place] [address], [facility] GFR/1.73 sq M predicted among non-blacks MDRD (S/P/Bld) [Vol rate/Area] mL/min/{1.73_m2} Normal >[address] [facility] Comment on above: Performed By: #### 5 7307, 88267 #### [facility] [address] [facility] [place] [address], [facility] Glucose [Mass/Vol] 87 mg/dL Normal 70-100 The [facility] Comment on above: Performed By: #### 5 73, 32895 #### [facility] [address] [place] [address], [facility] Potassium [Moles/Vol] 4.0 mmol/L Normal 3.5-5.[address] [facility] Comment on above: Performed By: #### 5 7307, 00589 #### [facility] [address] [facility]. [address] Sodium [Moles/Vol] 137 mmol/L Normal 136-145 The [facility] Comment on above: Performed By: #### 5 7307, 82843 #### [facility] [address] [place] [address], [facility] Urea nitrogen [Mass/Vol] 12 mg/dL Normal 7-[address] [facility] Comment on above: Performed By: #### 5 7307, 63521 #### [facility] [address] [facility] [place] [address], [facility] CBC W/DIFFon 01-23-2019 ABS BASOPHILS 0.1 10*3/uL Normal 0.0-0.2 The [facility] Comment on above: Performed By: #### 5 7307, 46563 #### [facility] [address] [facility] [place] [address], [facility] ABS IMM GRANS 0.0 10*3/uL Normal 0.0-0.2 The [facility] Comment on above: Performed By: #### 5 7306, 77785 #### [facility] [address] [place] [address], [facility] ABS NEUTROPHILS 5.3 10*3/uL Normal 1.6-7.6 [facility] Comment on above: Performed By: #### 5 7306, 30835 #### [facility] [address] [place] [address], [place] Basophils/100 WBC (Bld) 0.9 % Normal 0.0-1.[address] [facility] Comment on above: Performed By: #### 5 7306, 21195 #### [facility] [address] [place] [address], [place] Eosinophils (Bld) [#/Vol] 0.2 10*3/uL Normal 0.0-0.[address] [facility] Comment on above: Performed By: #### 5 7306, 07909 #### [facility] [address] [place] [address], [facility] Eosinophils/100 WBC (Bld) 2.3 % Normal 0.0-6.[address] [facility] Comment on above: Performed By: #### 5 7306, 74216 #### [facility] [address] [place] [address], [place] Erythrocyte distribution width (RBC) [Ratio] 13.8 % Normal 11.5-15.[address] [facility] Comment on above: Performed By: #### 5 7306, 44828 #### [facility] [address] [place] [address], [place] Hematocrit (Bld) [Volume fraction] 49.6 % Normal 39.0-50.[address] [facility] Comment on above: Performed By: #### 5 7306, 36547 #### [facility] [address] [place] [address], [place] Hemoglobin (Bld) [Mass/Vol] 16.4 g/dL Normal 13.0-17.[address] [facility] Comment on above: Performed By: #### 5 7306, 84994 #### [facility] [address] [facility] [place] [address], [facility] IMMATURE GRANS 0.5 % Normal 0.0-1.0 The [facility] Comment on above: Performed By: #### 5 7306, 03229 #### [facility] [address] [facility] [place] [address], [facility] Lymphocytes (Bld) [#/Vol] 1.2 10*3/uL Normal 1.2-4.[address] [facility] Comment on above: Performed By: #### 5 7306, 71252 #### [facility] [address] [place] [address], [facility] Lymphocytes/100 WBC (Bld) 16.6 % Low 20.0-45.[address] [facility] Comment on above: Performed By: #### 7306, 05916 #### [facility] [address] [facility] [place] [address], [facility] MCH (RBC) [Entitic mass] 27.8 pg Normal 27.0-33.[address] [facility] Comment on above: Performed By: #### 7306, 31396 #### [facility] [address] [facility] [place] [address], [facility] MCHC (RBC) [Mass/Vol] 33.1 g/dL Normal 32.0-35.[address] [facility] Comment on above: Performed By: #### 5 7306, 57570 #### [facility] [address] [facility] [place] [address], [facility] MCV (RBC) [Entitic vol] 84.2 fL Normal 82.0-98.[address] [facility] Comment on above: Performed By: #### 5 7306, 38262 #### [facility] [address] [facility] [place] [address], [facility] Monocytes (Bld) [#/Vol] 0.7 10*3/uL Normal 0.1-1.[address] [facility] Comment on above: Performed By: #### 5 7306, 80934 #### [facility] [address] [place] [id number], [place] MONOS 9.4 % Normal 5.0-12.[address] [facility] Comment on above: Performed By: #### 5 7306, 29312 #### [facility] [address] [place] [id number], [facility] Neutrophils/100 WBC (Bld) 70.3 % Normal 40.0-72.[address] [facility] Comment on above: Performed By: #### 5 7306, 07223 #### [facility] [address] [place] [address], [facility] Nucleated RBC/100 WBC (Bld) [Ratio] 0 % Normal 0-[address] [facility] Comment on above: Performed By: #### 5 Al, 75946 #### [facility] [address] [place] [address], [facility] PLAT CNT 235 10*3/uL Normal 150-400 The [facility] Comment on above: Performed By: #### 5 7306, 26019 #### [facility] [address] [place] [address], [facility] RBC (Bld) [#/Vol] 5.89 10*6/uL High 4.20-5.70 The [facility] Comment on above: Performed By: #### 5 7306, 41410 #### [facility] [address] [place] [id number], [place] WBC (Bld) [#/Vol] 7.48 10*3/uL Normal 4.00-10.60 The [facility] Comment on above: Performed By: #### 5 7306, 19972 #### [facility] [address] [employer] [address] PROTHROMBIN TIMEon 9 INR Coag (PPP) [Relative time] 1.12 {INR} Normal 0.91-1.16 [facility] Comment on above: Result Comment: ACCC [...] CHEST 1995;108:231S-246S. Performed By: #### 5 7307, 11174 #### [facility] [address] [facility] [address] PT Coag (PPP) [Time] 14.4 s Normal 12.3-14.[address] [facility] Comment on above: Result Comment: ALL RESULTS MUST BE INTERPRETED WITH RESPECT TO BLOOD DRAWING ARTIFACT OR DILUTION ERROR OF ANTICOAGULANT AT THE TIME OF SAMPLING. Performed By: #### 5 7307, 65765 #### [facility] [address] [place] [address], [facility] TYPE AND SCREENon 01-23-2019 ABO INTERPRETATION A Normal [facility] Comment on above: Performed By: #### 5 7307, 66695 #### [facility] [address] [place] [address], [facility] RH INTERPRETATION Positive Normal [facility] Comment on above: Performed By: #### 5 7307, 85279 #### [address] [address], [facility] CT 3D CERVICAL SPINE WO CONT RASTon 01-12-2019 CT 3D CERVICAL SPINE WO CONTRAST [facility] Department of Radiology [address] [place] [phone] Patient Name: MATTY GARCES : 1970 Sex: M Age: Race: White Pt. Location: Patient Status: D Ordered Date: 01/10/2019 2:15:00 PM Completed Date: 01/12/2019 10:32 AM Requesting Provider: LUCIANO VIEIRA Attending Provider: LUCIANO VIEIRA Report Copy To: VENUS MENDEZ Signs & Symptoms: M48.02 Spinal stenosis, cervical region I10 History: [place] para auth # [id number] 01/10/19-02/09/19 11398 *er Comments: Exam: CT 3D CERVICAL SPINE [...] incomplete Electronically signed by:Ten Garland. Transcribed by: [email or web address], User Resident: Electronically Signed by: TEN GARLAND @ 01/13/2019 09:[address] [facility] CERVICAL SPINE 2 OR 3 [facility] 01-05-2019 CERVICAL SPINE 2 OR 3 [facility] Department of Radiology [address] [place] [phone] Patient Name: MATTY GARCES : 1970 [...] findings. Electronically signed by:Ten Garland. Transcribed by: [email or web address], User Resident: SHELLY DELA CRUZ Electronically Signed by: TEN GARLAND @ 01/05/2019 12:37 PM I personally read this/these film(s) with this resident Normal [facility] Comment on above: Order Comment: , , = ========= , Ordering Provider - LUCIANO VIEIRA MD , CERVICAL SPINE 2 OR 3 VWSon 08-30-2018 CERVICAL SPINE [address] [facility] Department of Radiology [address] [place] [phone] Patient Name: MATTY GARCES : 1970 [...] findings. Electronically signed by:Bella King. Transcribed by: [email or web address], User Resident: RYAN HEAD Electronically Signed by: BELLA KING @ 08/30/2018 05:45 PM I personally read this/these film(s) with this resident Normal [facility] Comment on above: Order Comment: , POS T OP XRAY AP/LAT ONLY , POST OP XRAY AP/LAT ONLY , , , Ordering Provider - LUCIANO VIEIRA MD , Operative Reporton 8 Operative Report MR#: [id number] [facility] Pt. Name: Matty Garces Room #: [id number] Discharge Date: Birthdate: 1970 OPERATIVE REPORT DATE OF SURGERY: 08/17/2018 SURGEON: Luciano Vieira M.D. PREOPERATIVE DIAGNOSIS: Herniated cervical disk at C6-7. POSTOPERATIVE DIAGNOSIS: Herniated cervical disk at C6-7. PRISON OFFICER: ADENIKE Larios. ANESTHESIA: Endotracheal, Braida. PROCEDURE: [...] Vieira M.D. Date Trans: 08/17/2018 11:25 P/mmo [id number] cc: Venus Mendez M.D. [address], [place] [address] [place] [address] [facility] CERVICAL SPINE 2 OR 3 [facility] 08-17-2018 CERVICAL SPINE 2 OR 3 [facility] Department of Radiology [address] [place] [phone] Patient Name: MATTY GARCES : 1970 [...] findings. Electronically signed by:Bernice Hoyt. Transcribed by: [email or web address], User Resident: EMILE TINAJERO Electronically Signed by: BERNICE HOYT @ 08/18/2018 01:06 PM I personally read this/these film(s) with this resident Normal [facility] Comment on above: Order Comment: C6-7 ACDF with POC GLUCOSE LABon 08-17-2018 Glucose [Mass/Vol] 113 mg/dL High 70-100 The [facility] Comment on above: Performed By: #### 8 5499 #### [facility] [address] [place] [address], [facility] RBC'S 2 UNITSon 08-17-2018 CROSSMATCH INTERP 1 COMP Normal The [facility] Comment on above: Performed By: #### 8 6002 #### [facility] [address] [place] [address], [place] CROSSMATCH INTERP 2 COMP Normal The [facility] Comment on above: Performed By: #### 8 6002 #### [facility] [address] [place] [address], [facility] PRODUCT CODE 1 E0336 Normal The [facility] Comment on above: Performed By: #### 8 6002 #### [facility] [address] [place] [address], [facility] PRODUCT CODE 2 E0336 Normal The [facility] Comment on above: Performed By: #### 8 6002 #### [facility] [address] [place] [address], [facility] PRODUCT STATUS 1 RE Normal The [facility] Comment on above: Result Comment: Resu lt changed by IF on 08/20/2018 07:48. The previous value was XM. Performed By: #### 8 6002 #### [facility] [address] [place] [address], [facility] PRODUCT STATUS 2 RE Normal The [facility] Comment on above: Result Comment: Resu lt changed by IF on 08/20/2018 07:48. The previous value was XM. Performed By: #### 8 6002 #### [facility] [address] [place] [address], [place] UNIT ABO [address] [facility] Comment on above: Performed By: #### 8 6002 #### [facility] [address] [place] [address], [place] UNIT ABO [address] [facility] Comment on above: Performed By: #### 8 6002 #### [facility] [address] [place] [address], [place] UNIT ID 1 [id number] Normal The [facility] Comment on above: Performed By: #### 8 6002 #### [facility] [address] UNIT ID 2 [id number] Normal The [facility] Comment on above: Performed By: #### 8 6002 #### [facility] [address] [facility]. [address] UNIT RH 1 Positive Normal [facility] Comment on above: Performed By: #### 8 6002 #### [facility] [address] [facility] [address] UNIT RH 2 Positive Normal [facility] Comment on above: Performed By: #### 8 6002 #### [facility] [address] [facility]. [address] *MRSA/MSSA CULTUREon 018 *MRSA/MSSA CULTURE Clinical Report: (D) Specimen: NASAL SWAB Collected: 08/02/2018 12:37 Status: Final Last Updated: 08/03/2018 14:26 ISO (Final) No Methicillin Resistant Staphylococcus aureus Isolated (MRSA) ISO (Final) Methicillin Sensitive Staphylococcus aureus (MSSA) Isolated Normal [facility] Comment on above: Performed By: #### 3 1302 #### [facility] [address] [facility]. [address] APTTon 08-02-2018 aPTT Coag (Bld) [Time] 31.2 s Normal 25.0-35.0 [facility] Comment on above: Result Comment: ALL [...] THIS PURPOSE. Performed By: #### 5 7307, 16575 #### [facility] [address] BASIC METABOLIC PANELon 07-15 Calcium [Mass/Vol] 9.4 mg/dL Normal 8.6-10.3 [facility] Comment on above: Performed By: #### 0 0071 #### [facility] [address] [place] [address], [place] Chloride [Moles/Vol] 103 mmol/L Normal 98-[address] [facility] Comment on above: Performed By: #### 0 0071 #### [facility] [address] [place] [address], [place] CO2 [Moles/Vol] 29 mmol/L Normal 21-31 [facility] Comment on above: Performed By: #### 0 0071 #### [facility] [address] [place] [address], [place] Creatinine [Mass/Vol] 1.06 mg/dL Normal 0.70-1.[address] [facility] Comment on above: Performed By: #### 0 0071 #### [facility] [address] [place] [address], [place] GFR/1.73 sq M predicted among blacks MDRD (S/P/Bld) [Vol rate/Area] mL/min/{1.73_m2} Normal >[address] [facility] Comment on above: Performed By: #### 0 0071 #### [facility] [address] [place] [address], [place] GFR/1.73 sq M predicted among non-blacks MDRD (S/P/Bld) [Vol rate/Area] mL/min/{1.73_m2} Normal >[address] [facility] Comment on above: Performed By: #### 0 0071 #### [facility] [address] [place] [address], [place] Glucose [Mass/Vol] 84 mg/dL Normal 70-100 [facility] Comment on above: Performed By: #### 0 0071 #### [facility] [address] [place] [address], [place] Potassium [Moles/Vol] 4.0 mmol/L Normal 3.5-5.[address] [facility] Comment on above: Performed By: #### 0 0071 #### [facility] [address] [facility] [place] [address], [facility] Sodium [Moles/Vol] 140 mmol/L Normal 136-145 The [facility] Comment on above: Performed By: #### 0 0071 #### [facility] [address] Urea nitrogen [Mass/Vol] 20 mg/dL Normal 7-[address] [facility] Comment on above: Performed By: #### 0 1 #### [facility] [address] CBC W/DIFFon 08-02-2018 ABS BASOPHILS 0.1 10*3/uL Normal 0.0-0.2 The [facility] Comment on above: Performed By: #### 5 3 #### [facility] [address] ABS IMM GRANS 0.1 10*3/uL Normal 0.0-0.2 [facility] Comment on above: Performed By: #### 5 102 #### [facility] [address] ABS NEUTROPHILS 4.2 10*3/uL Normal 1.6-7.6 The [facility] Comment on above: Performed By: #### 5 102 #### [facility] [address] [place] [address], [facility] Basophils/100 WBC (Bld) 1.3 % High 0.0-1.[address] [facility] Comment on above: Performed By: #### 5 102 #### [facility] [address] [place] [address], [facility] Eosinophils (Bld) [#/Vol] 0.1 10*3/uL Normal 0.0-0.[address] [facility] Comment on above: Performed By: #### 5 0103 #### [facility] [address] [facility] [place] [address], [facility] Eosinophils/100 WBC (Bld) 2.0 % Normal 0.0-6.[address] [facility] Comment on above: Performed By: #### 5 0103 #### [facility] [address] [facility] [place] [place] [address], [facility] Erythrocyte distribution width (RBC) [Ratio] 13.6 % Normal 11.5-15.[address] [facility] Comment on above: Performed By: #### 5 0103 #### [facility] [address] [facility] [place] [place] [address], [facility] Hematocrit (Bld) [Volume fraction] 44.3 % Normal 39.0-50.[address] [facility] Comment on above: Performed By: #### 5 0103 #### [facility] [address] [facility] [place] [place] [address], [facility] Hemoglobin (Bld) [Mass/Vol] 15.1 g/dL Normal 13.0-17.[address] [facility] Comment on above: Performed By: #### 5 0103 #### [facility] [address] [facility] [place] [address], [facility] IMMATURE GRANS 1.1 % High 0.0-1.0 The [facility] Comment on above: Performed By: #### 5 0103 #### [facility] [address] [facility] [place] [address], [facility] Lymphocytes (Bld) [#/Vol] 1.2 10*3/uL Normal 1.2-4.[address] [facility] Comment on above: Performed By: #### 5 3 #### [facility] [address] [place] [id number], [facility] Lymphocytes/100 WBC (Bld) 18.3 % Low 20.0-45.[address] [facility] Comment on above: Performed By: #### 5 0103 #### [facility] [address] [facility] [place] [address], [facility] MCH (RBC) [Entitic mass] 29.0 pg Normal 27.0-33.[address] [facility] Comment on above: Performed By: #### 5 0103 #### [facility] [address] [facility] [place] [place] [address], [facility] MCHC (RBC) [Mass/Vol] 34.1 g/dL Normal 32.0-35.[address] [facility] Comment on above: Performed By: #### 5 3 #### [facility] [address] [facility] [place] [address], [facility] MCV (RBC) [Entitic vol] 85.0 fL Normal 82.0-98.[address] [facility] Comment on above: Performed By: #### 5 0103 #### [facility] [address] [facility] [place] [address], [facility] Monocytes (Bld) [#/Vol] 0.7 10*3/uL Normal 0.1-1.[address] [facility] Comment on above: Performed By: #### 5 3 #### [facility] [address] [facility] [place] [place] [address], [facility] MONOS 11.1 % Normal 5.0-12.[address] [facility] Comment on above: Performed By: #### 5 3 #### [facility] [address] [facility] [address] Neutrophils/100 WBC (Bld) 66.2 % Normal 40.0-72.[address] [facility] Comment on above: Performed By: #### 5 3 #### [facility] [address] [place] [address], [facility] Nucleated RBC/100 WBC (Bld) [Ratio] 0 % Normal 0-[address] [facility] Comment on above: Performed By: #### 5 0103 #### [facility] [address] PLAT CNT 179 10*3/uL Normal 150-400 The [facility] Comment on above: Performed By: #### 5 0103 #### [facility] [address] RBC (Bld) [#/Vol] 5.21 10*6/uL Normal 4.20-5.70 The [facility] Comment on above: Performed By: #### 5 0103 #### [facility] [address] [place] [address], [facility] WBC (Bld) [#/Vol] 6.39 10*3/uL Normal 4.00-10.60 The [facility] Comment on above: Performed By: #### 5 0103 #### [address] CERVICAL SPINE 4 OR 5 VIEWSo n 08-02-2018 CERVICAL SPINE [address] [facility] Department of Radiology [address] [place] [id number] Patient Name: MATTY GARCES : 1970 Sex: M Age: Race: White Pt. Location: Patient Status: D Ordered Date: 08/02/2018 1:05:00 PM Completed Date: 08/02/2018 01:29 PM Requesting Provider: LUCIANO VIEIRA Attending Provider: LUCIANO VIEIRA Report Copy To: VENUS MENDEZ Signs & Symptoms: Z01.89 Encounter for other specified special examinations I10 History: [place] Comments: , PREOP XRAY AP/LAT \EANDE\ FLEX/EX [...] findings. Electronically signed by:Bella King. Transcribed by: [email or web address], User Resident: EMILE TINAJERO Electronically Signed by: BELLA KING @ 08/03/2018 11:58 AM I personally read this/these film(s) with this resident Normal [facility] Comment on above: Order Comment: , PRE OP XRAY AP/LAT \EANDE\ FLEX/EX , PREOP XRAY AP/LAT \EANDE\ FLEX/EX , , , Ordering Provider - LUCIANO VIEIRA MD , PROTHROMBIN TIMEon 8 INR Coag (PPP) [Relative time] 1.15 {INR} Normal 0.91-1.16 [facility] Comment on above: Result Comment: ACCC [...] CHEST 1995;108:231S-246S. Performed By: #### 5 7307, [id number] #### [facility] [employer] [address] PT Coag (PPP) [Time] 14.7 s Normal 12.3-14.8 [facility] Comment on above: Result Comment: ALL RESULTS MUST BE INTERPRETED WITH RESPECT TO BLOOD DRAWING ARTIFACT OR DILUTION ERROR OF ANTICOAGULANT AT THE TIME OF SAMPLING. Performed By: #### 5 7307, [id number] #### [facility] [employer] [address] TYPE AND SCREENon 08-02-2018 ABO INTERPRETATION A Normal [facility] Comment on above: Order Comment: 2 uni ts 2 units 2 units 2 units 2 units Performed By: #### 6 2586 #### [facility] [address] [place] [address], [facility] RH INTERPRETATION Positive Normal The [facility] Comment on above: Order Comment: 2 uni ts 2 units 2 units 2 units 2 units Performed By: #### 6 2586 #### [facility] [address] [place] [address], [facility] URINALYSIS REFLEXon 08-02-20 Appearance (U) CLEAR Normal CLEAR The [facility] Comment on above: Performed By: #### 3 0965 #### [facility] [address] [place] [address], [facility] Bilirubin [Mass/Vol] Negative Normal NEGATIVE [facility] Comment on above: Performed By: #### 3 0965 #### [facility] [address] [place] [address], [facility] BLOOD Negative Normal NEGATIVE [facility] Comment on above: Performed By: #### 3 0965 #### [facility] [address] [place] [address], [facility] Color (U) YELLOW Normal YELLOW [facility] Comment on above: Performed By: #### 3 0965 #### [facility] [address] [facility] [place] [address], [facility] Glucose [Mass/Vol] 150 mg/dL Abnormal NEGATIVE The [facility] Comment on above: Performed By: #### 3 0965 #### [facility] [address] [facility] [place] [address], [facility] KETONE Negative Normal NEGATIVE [facility] Comment on above: Performed By: #### 3 0965 #### [facility] [address] [facility] [place] [address], [facility] [place] Negative Normal NEGATIVE [facility] Comment on above: Performed By: #### 3 0965 #### [facility] [address] [place] [address], [place] MICRO NOT DONE negative chemical reactions unless requested in original order Normal [facility] Comment on above: Performed By: #### 3 0965 #### [facility] [address] [facility] [place] [address], [facility] Nitrite Ql (U) Negative Normal NEGATIVE The [facility] Comment on above: Performed By: #### 3 0965 #### [facility] [address] [place] [address], [facility] pH (Bld) 5.0 Normal 5.0-8.0 [facility] Comment on above: Performed By: #### 3 0965 #### [facility] [address] [facility] [place] [address], [facility] Protein (U) [Mass/Vol] Negative Normal NEGATIVE [facility] Comment on above: Performed By: #### 3 0965 #### [facility] [address] SPEC GRAV 1.024 High 1.015-1.020 The [facility] Comment on above: Performed By: #### 3 0965 #### [facility] [address] Vital Signs Date Time Vital Sign Value Performing Clinician Facility 07-03-2024 14:45-0400 Body height 188 cm Rubén Geiger MD Work Phone: [facility] 07-03-2024 14:45-0400 Body mass index (BMI) [Ratio] 37.62 kg/m2 Rubén Geiger MD Work Phone: [facility] 07-03-2024 14:45-0400 Body weight 132.9 kg Rubén Geiger MD Work Phone: [facility] 02-25-2022 10:30-0400 Blood Pressure Location Viola Grullon [facility] 02-25-2022 10:30-0400 Diastolic blood pressure 107 mm[Hg] Viola Lue [facility] 02-25-2022 10:30-0400 Heart rate 74 /min Viola Lue [facility] 02-25-2022 10:30-0400 Respiratory rate 16 /min Viola Lue [facility] 02-25-2022 10:30-0400 Systolic blood pressure 157 mm[Hg] Viola Lue [facility] Encounters Encounter Date Encounter Type Care Provider Facility Start: 07-04-2024 End: 07-05-2024 Telephone encounter Rubén Geiger MD Work Phone: [facility] Start: 07-03-2024 End: 07-03-2024 Office outpatient visit 25 minutes Rubén Geiger MD Work Phone: [facility] Comment on above: Excessive daytime sl eepiness (Primary Dx); Obstructive sleep apnea; Primary insomnia; Cubital tunnel syndrome on right Start: 07-03-2024 End: 07-03-2024 ambulatory RUBÉN GEIGER Not Available Start: 07-03-2024 End: 07-03-2024 Bamboo flowsheet Rubén Geiger MD Work Phone: [facility] Start: 07-03-2024 End: 07-03-2024 Bamboo flowsheet Rubén Geiger MD Work Phone: [facility] Start: 03-27-2024 End: 03-27-2024 ambulatory RUBÉN GEIGER Not Available Start: 01-10-2024 End: 01-10-2024 ambulatory VALENCIA DE LEÓN Not Available Start: 01-03-2024 End: 01-03-2024 [facility] Work Phone: Start: 01-03-2024 End: 01-03-2024 Departed Referred DPM Trey Vallejo Work Phone: [facility] Start: 12-29-2023 End: 12-29-2023 ambulatory RUBÉN GEIGER Not Available Start: 11-29-2023 End: 11-30-2023 ambulatory Andrius Vytautas Giedraitis Facility:[facility] Start: 10-18-2023 End: 10-19-2023 ambulatory Andrius Juanytautas Christianneitis Facility:[facility] Start: 09-27-2023 End: 09-27-2023 ambulatory RUBÉN GEIGER Not Available Start: 08-30-2023 End: 08-31-2023 ambulatory Andrius Vytautas Christianneitis Facility:[facility] Start: 07-12-2023 End: 07-13-2023 ambulatory Andrius Vytautas Gieditis Facility:[facility] Start: 06-14-2023 End: 06-15-2023 ambulatory Andrius Vytautas Christianneitis Facility:[facility] Start: 12-06-2022 End: 12-06-[address] VENUS MENDEZ . Facility: Start: 12-05-2022 Encounter for genera l adult medical examination without abnormal findings DR VENUS MENDEZ . [facility] Start: 12-01-2022 End: 12-02-[address] [...] procedure Viola WhittMarilee Grullon [facility] Start: 01-04-2022 End: 01-05-[address] VENUS MENDEZ . Facility: Start: 01-30-2019 End: 02-01-2019 Evaluation and management of inpatient PROVIDER UNKNOWN Facility:[facility] Start: 08-17-2018 End: 08-18-2018 Patient encounter procedure PROVIDER UNKNOWN Facility:[facility] Procedures Date Procedure Procedure Detail Performing Clinician Start: 12-01-[address] FRANKLIN MENDEZ . Comment on above: Performed By: #### [place] #### [facility] [address] [place] [address] Dr. Shabnam Rae Start: 01-30-2019 FUSION CERV JT W INT BD FUS DEV, ANT APPR A COL, OPEN [facility] Start: 01-30-2019 REMOVAL OF INT FIX F ROM CERVCAL VERTEBRA, OPEN APPROACH [facility] Start: 01-23-2019 Antibody screen PROVIDE R UNKNOWN Comment on above: Performed By: #### 5 7307, [id number] #### [facility] [address] Start: 08-17-2018 ANESTH SPINE CORD SURGERY [...] units Performed By: #### 6 2586 #### [facility] [address] Start: 02-08-1998 H/O: vasectomy History of vasectomy Rubén Geiger MD Work Phone: Colonoscopy Viola Grullon Hemorrhoids (disorder) Viola Grullon Hernia of abdominal cavity (disorder) Viola Grullon Tonsillectomy Viola Grullon Plan of Treatment Date Care Activity Detail Author Start: 10-04-2024 End: 10-04-2024 Patient encounter procedure 10/04/2024 2:20 PM EST Office Visit [facility] [address] [address] Rubén Geiger MD [address] [facility] [address] [id number] [facility] Start: 07-03-2024 End: 07-03-2024 Patient encounter procedure 07/03/2024 2:40 PM EDT Office Visit [facility] [address] [address] Rubén Geiger MD 53[address] [facility] [address] [address] Arrived [facility] Comment on above: Arrived Start: 05-14-2024 Influenza vaccination Influenza Vacc ine (#1) [facility] Start: 1970 Screening for malign ant neoplasm of colon [facility] Immunizations Immunization Date Immunization Notes Care Provider Fa cili 07-06-2023 influenza virus vacc ine, unspecified formulation Rubén Geiger MD Work Phone: [facility] Healthcare Payers Date Payer Category Payer Self-pay [id number] 2022 Medicaid [facility] [id number] 2022 Medicaid [id number] 2022 Unknown 1970 Unknown [id number] 2.16.840.1.221534.3.579.2.647 1970 Unknown [id number] 2.16.840.1.378997.3.579.2.647 1970 Unknown [id number] 2.16.840.1.590391.3.579.2.593 1970 Unknown [id number] 2.16.840.1.454252.3.579.2.593 1970 Unknown [id number] 2.16.840.1.019259.3.579.2.593 1970 Unknown [id number] 2.16.840.1.457010.3.579.2.593 1970 Unknown [id number] 2.16.840.1.666440.3.579.2.593 1970 Unknown [id number] 2.16.840.1.275112.3.579.2.593 1970 Unknown [id number] 2.16.840.1.535457.3.579.2.196 1970 Unknown [id number] 2.16.840.1.021757.3.579.2.196 1970 Unknown [id number] 2.16.840.1.447769.3.579.2.196 1970 Unknown [id number] 2.16.840.1.467597.3.579.2.196 1970 Unknown [id number] 2.16.840.1.916955.3.579.2.196 1970 Unknown [id number] 2.16.840.1.534329.3.579.2.9 1970 Unknown [id number] 2.16.840.1.258736.3.579.2.9 1970 Unknown [id number] 2.16.840.1.456076.3.579.2.1258 1970 Unknown [id number] 2.16.840.1.033444.3.579.2.1258 1970 Unknown [id number] 2.16.840.1.346964.3.579.2.1258 1970 Unknown [id number] 2.16.840.1.439509.3.579.2.9 1959 Unknown [id number] Unknown [id number] Unknown [id number] 2.16.840.1.821105.3.579.2.531 Social History Date Type Detail Facility Tobacco smoking status No Smokin g Status Entered [facility] [employer] Start: 03-27-2024 End: 07-03-2024 Sex Assigned At Male [facility] Start: 05-15-2018 Tobacco smoking stat [facility] Ex-smoker (finding) [facility] Start: 1970 Sex Assigned At Male [facility] Start: 03-11-2023 [facility] smoking [facility] Facility 02-25-2022 Functional Status N/A [facility] Clinical Notes 02-25-2022 to 07-04-2024 Telephone [...] help boost energy in the morning. [facility] [employer] [facility] [place]. [facility] 07-04-2024 Miscellaneous Notes left message regarding prescriptions earlier today and not being at pharmacy. I did call back and spoke to advising they were sent this afternoon. had mentioned Dr. Geiger was also going to start a Vitamin B to help boost energy in the morning. Medicine [employer] in [place]. documented in this encounter [facility] 07-03-2024 History of Presen t illness [...] 1 mg, Oral, 2 times daily HYDROcodone-acetaminophen ([place]) 5-325 MG tablet hydrOXYzine pamoate (Vistaril) 25 [...] reflexes: Alycia's absent. Ankle clonus absent. Coordination Keoytx-lj-vfcf, rapid alternating movements and coke-os-ihxm normal bilaterally without dysmetria. Gait Normal casual, [...] up 3 months. documented in this encounter [facility] 06-09-2023 Note [facility] Continue GDMT- Diuretic therapy Monitor daily weights, I&O, fluid restriction 1.5-2L/day, renal function and electrolytes- [facility] 03-26-2022 Note PROCEDURE: XR FOOT L [...] authenticated by: ALVINA CAICEDO Date: 2022-03-26 10:47 [facility] 02-25-2022 Hospital Discharg e instructions Patient Education [...] Watch the hydrocele for any changes. Take jjay-cdi-euffuqb and prescription medicines only as told by [...] 02/17/2011 Document Revised: 09/10/2018 Document Reviewed: 09/10/2018 [employer] Patient Education 2020 [employer]. Follow Up Care 01/28/2022 10:36:35 With:Mitchel DELGADO, [place] Gregorio, URO Address: When: Unknown [facility] Evaluation + Plan note No data available for this section [facility] Evaluation note No assessment inform ation available [facility] Work Phone: Evaluation note Diagnosis Excessive daytime sleepiness- Primary Obstructive sleep apnea Obstructive sleep apnea (adult) (pediatric) Primary insomnia Persistent disorder of initiating or maintaining sleep Cubital tunnel syndrome on right [facility] Diagnosis Excessive daytime sleepiness- Primary documented in this encounter [facility] No data available for this section [facility] Summary Purpose Family History No Family History Records FoundNo Family History Records FoundNo Family History Records FoundNo Family History Records FoundNo Family History Records FoundNo Family History Records FoundNo Family History Records Found Advance Directives Advance Directive Response Recorded Date/ Time Advance Directives No May 12:42pm Hospital Course Note MR#: [id number] [facility] Pt. Name: Matty Garces Admitted: [...] section and content) DATE CREATED AUTHOR 07/19/2019 [facility] DATE CREATED AUTHOR AUTHOR'S ORGANIZ ATION 02/27/2022 [facility] DATE CREATED AUTHOR AUTHOR'S ORGANIZ ATION 12/08/2022 [facility] DATE CREATED AUTHOR AUTHOR'S ORGANIZ ATION 06/17/2023 [facility] DATE CREATED AUTHOR AUTHOR'S ORGANIZ ATION 12/03/2023 [facility] DATE CREATED AUTHOR AUTHOR'S ORGANIZ ATION 03/28/2024 [facility] DATE CREATED AUTHOR AUTHOR'S ORGANIZ ATION 07/05/2024 [facility] EPIC Care Team (unrecognized sect ion and content) Team Status: Inactive Member Role Status Dates Trey Vallejo DPM MS Attending Provider Active Start: January 03, 2024 End: January 03, 2024 Emergency Medical Technician/Driver Relationship Specialty Start Date End Date Venus Mendez MD [address] [place] [address] PCP - General Family Medicine 01/10/24 Emergency Medical Technician/Driver Relationship Specialty Start Date End Date Venus Mendez MD [address] [place] [address] PCP - General Family Medicine 01/10/24 Emergency Medical Technician/Driver Relationship Specialty Start Date End Date Venus Mendez MD [address] [place] [id number] PCP - General Family Medicine 01/10/24 Goals [...] BE BASED ON THE PRIMARY CLINICAL RECORDS. [employer] [facility]. provides no warranty or guarantee of the accuracy or completeness of information in this document.
--- NOTE | 2024-08-29 04:37 | ECG_ITS ---
The [facility] Test Date: 2024-08-29 Pat Name: MATTY WADE Department: Room: - Gender: Male [employer] Vehicle [employer] Consultant: : 1970 Requested By: VENUS JAEGER Order Number: [id number] Reading MD: VENUS JAEGER Measurements Intervals [place] Rate: 99 P: 58 RI: 168 QRS: 54 QRSD: 90 T: 30 QT: 336 QTc: 392 Interpretive Statements 1100 Sinus rhythm [address] depression 4564 Tw[place] abnormality, possible lateral ischemia 9150 abnormal ECG Compared to ECG 03/14/2024 12:48:16 ST (T wave) deviation now present Possible ischemia now present T-wave abnormality no longer present Electronically Signed On 08-29-2024 6:59:02 EST by VENUS JAEGER
[2024-08-29 04:49] LABS: Basophils Absolute Auto 0.1 10^3/uL (0.0-0.1); Basophils Percent Auto 0.5 % (0.2-2.0); Eosinophils Absolute Auto 0.1 10^3/uL (0.0-0.7); Eosinophils Percent Auto 1.1 % (0.9-7.0); Hematocrit 48.5 % (42.0-54.0); Hemoglobin 15.4 g/dL (14.0-18.0); Immature Granulocytes Abs Auto 0.07 10^3/uL (0.00-0.03); Immature Granulocytes Pct Auto 0.6 % (0.0-0.5); Lymphocytes Absolute Auto 0.8 10^3/uL (1.2-3.8); Lymphocytes Percent Auto 6.9 % (20.5-60.0); Mean Corpuscular HGB Conc 31.8 g/dL (29.9-35.2); Mean Corpuscular Hemoglobin 26.9 pg (25.9-34.0); Mean Corpuscular Volume 84.6 fL (80.0-94.0); Mean Platelet Volume 9.2 fL (9.5-13.5); Monocytes Absolute Auto 0.9 10^3/uL (0.3-0.8); Monocytes Percent Auto 7.7 % (1.7-12.0); Neutrophils Absolute Auto 9.4 10^3/uL (1.4-6.5); Neutrophils Percent Auto 83.2 % (43.0-75.0); Platelet Count 159 10^3/uL (150-450); Red Blood Count 5.73 10^6/uL (4.70-6.10); Red Cell Distribution Width 15.3 % (11.0-15.0); White Blood Count 11.3 10^3/uL (4.0-11.0)
[2024-08-29] MEDS: HYDROMORPHONE HCL 1 MG/ML CARTRIDGE IV (04:51)
[2024-08-29] MEDS: ONDANSETRON PF 4 MG/2 ML VIAL IV (04:51)
--- NOTE | 2024-08-29 04:52 | ED.EXTPRO1 ---
HPI - Extremity Problem General Chief complaint: Extremity Problem, Nontraumatic Stated complaint: LOWER LEFT EXTREMITY PAIN Time Seen by Provider: 08/29/24 04:36 Source: patient Mode of arrival: Wheelchair Limitations: no limitations History of Present Illness HPI Narrative: This 53-year-old male presents for evaluation of left ankle pain and injury. The patient has recently been treated for an ulcer on the base of his great toe by Dr. Vallejo. He explains that he had a hard cast on the extremity at that time. He also had a left bimalleolar ankle fracture with syndesmotic disruption with an open reduction internal fixation of a lateral malleolus fracture closed reduction of posterior malleolus fracture and syndesmotic stabilization with Dr. Vallejo on 03/15/2024. The patient states he had a hard cast on his left lower extremity and on Wednesday08/28/24 sometime in the morning the patient twisted his left lower leg and got it caught underneath a drawer on a desk-causing him to pull out the drawer on the desk. This morning he had pain in the left ankle area and felt like the cast was very tight in his left lower extremity and he cut the cast off and came to the emergency department. His states that the ankle does not look like it did postoperatively-it is red, swollen and causing him pain. He has not had any fever. He has a large ulcer on the base of the left great toe. Related Data Home Medications ?Medication ?Instructions ?Recorded ?Confirmed carvedilol 25 mg tablet 25 mg PO BID 06/14/23 03/14/24 citalopram 20 mg tablet 20 mg PO DAILY 06/14/23 03/14/24 clonazepam 0.5 mg tablet 0.5 mg PO DAILY 06/14/23 03/14/24 doxazosin 8 mg tablet 8 mg PO DAILY 06/14/23 03/14/24 furosemide 20 mg tablet 20 mg PO DAILY 06/14/23 03/14/24 gabapentin 600 mg tablet 600 mg PO Q8H 06/14/23 03/14/24 glycopyrrolate 1 mg tablet 1 mg PO BID 06/14/23 03/14/24 hydroxyzine pamoate 25 mg capsule 25 mg PO QPM 06/14/23 03/14/24 pantoprazole 40 mg tablet,delayed 40 mg PO DAILY 06/14/23 03/14/24 release simvastatin 20 mg tablet 20 mg PO DAILY 06/14/23 03/14/24 testosterone cypionate 100 mg/mL 100 mg subcut .EVERY 2 WEEKS 06/14/23 03/14/24 intramuscular oil tizanidine 4 mg capsule 4 mg PO .EVERY NIGHT 06/14/23 03/14/24 modafinil 200 mg tablet 200 mg PO BID 09/04/23 03/14/24 potassium chloride 10 mEq 10 meq PO Q12H 09/04/23 03/14/24 tablet,extended release amantadine HCl 100 mg tablet 100 mg PO BID 12/28/23 03/14/24 cholecalciferol (vitamin D3) 125 5,000 unit PO DAILY 12/28/23 03/14/24 mcg (5,000 unit) capsule melatonin 10 mg capsule 10 mg PO DAILY 12/28/23 03/14/24 multivitamin (Daily Multi-Vitamin 1 tab PO DAILY 12/28/23 03/14/24 tablet) sumatriptan succinate 100 mg tablet 100 mg PO Q2H PRN migraine headache 12/28/23 03/14/24 Previous Rx's ?Medication ?Instructions ?Recorded aspirin 81 mg tablet,delayed 81 mg PO BID 30 days #60 tabs 01/03/24 release (Adult Low Dose Aspirin) sodium chloride 0.65 % nasal spray 1 spray intranasal BID PRN dry 02/05/24 aerosol nasal passages #15 mL aspirin 81 mg tablet,delayed 81 mg PO BID 30 days #60 tabs 03/15/24 release (Adult Low Dose Aspirin) cefadroxil 500 mg capsule 500 mg PO BID 7 days #14 caps 03/15/24 cholecalciferol (vitamin D3) 125 125 mcg PO DAILY 90 days #90 caps 03/15/24 mcg (5,000 unit) capsule hydrocodone 5 mg-acetaminophen 325 1 tab PO Q6H PRN pain 7 days #28 03/15/24 mg tablet tabs ondansetron 4 mg disintegrating 4 mg PO Q8H PRN nausea and 03/15/24 tablet vomiting 5 days #15 tabs sennosides 8.6 mg tablet (Senna 8.6 mg PO DAILY PRN constipation 7 03/15/24 Laxative) days #7 tabs Allergies Allergy/AdvReac Type Severity Reaction Status Date / Time No Known Drug Allergies Allergy Verified 08/29/24 04:34 Review of Systems ROS Status of ROS 10 or more systems reviewed and unremarkable except as noted in history and below [facility] Medical History Prolonged emergence from general anesthesia ?T88.59XA - Other complications of anesthesia, initial encounter (ICD-10) Pain management contract signed ?Z02.89 - Encounter for other administrative examinations (ICD-10) Back pain ?M54.9 - Dorsalgia, unspecified (ICD-10) PTSD (post-traumatic stress disorder) ?F43.10 - Post-traumatic stress disorder, unspecified (ICD-10) Depression ?F32.A - Depression, unspecified (ICD-10) Dysphagia ?R13.10 - Dysphagia, unspecified (ICD-10) Uvulitis ?K12.2 - Cellulitis and abscess of mouth (ICD-10) Insomnia ?G47.00 - Insomnia, unspecified (ICD-10) Migraine ?G43.909 - Migraine, unspecified, not intractable, without status migrainosus (ICD-10) GERD (gastroesophageal reflux disease) ?K21.9 - Gastro-esophageal reflux disease without esophagitis (ICD-10) Dyspnea on exertion ?R06.09 - Other forms of dyspnea (ICD-10) Heart valve disorder ?I38 - Endocarditis, valve unspecified (ICD-10) Hypoglycemia ?E16.2 - Hypoglycemia, unspecified (ICD-10) Delayed recovery from anesthesia Chronic foot ulcer ?L97.509 - Non-pressure chronic ulcer of other part of unspecified foot with unspecified severity (ICD-10) 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 - Central serous chorioretinopathy, unspecified eye (ICD-10) Chronic pain ?G89.29 - Other chronic pain (ICD-10) Narcolepsy ?G47.419 - 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) Anxiety ?F41.9 - Anxiety disorder, unspecified (ICD-10) Upper back pain ?M54.9 - Dorsalgia, unspecified (ICD-10) Low back pain ?M54.50 - Low back pain, unspecified (ICD-10) TMJ (dislocation of temporomandibular joint) ?S03.00XA - Dislocation of jaw, unspecified side, initial encounter (ICD-10) Obesity ?E66.9 - Obesity, unspecified (ICD-10) Sleep apnea ?G47.30 - Sleep apnea, unspecified (ICD-10) Hypertension ?I10 - Essential (primary) hypertension (ICD-10) Surgical History H/O foot surgery ?Z98.890 - Other specified postprocedural states (ICD-10) H/O radiofrequency ablation (RFA) of nerve of lumbar spine ?Z98.890 - Other specified postprocedural states (ICD-10) History of fusion of cervical spine ?Z98.1 - Arthrodesis status (ICD-10) H/O inguinal hernia repair ?Z98.890 - Other specified postprocedural states (ICD-10) ?Z87.19 - Personal history of other diseases of the digestive system (ICD-10) H/O repair of rotator cuff ?Z98.890 - Other specified postprocedural states (ICD-10) History of uvulopalatopharyngoplasty ?Z98.890 - Other specified postprocedural states (ICD-10) Family History Other Family history of diabetes mellitus Family history of hypertension Family history of myocardial infarction Family history of stroke Social History (Updated 03/14/24 @ 09:47 by Agustina Hall) Within the past year, how often did you have a drink containing alcohol: monthly or less Smoking status: Never smoker Non-prescribed substance use: cannabis (any form) Previous occupational history: unemployed Highest level of school completed/degree received: high school graduate Are you now , , , , never or living with a partner: Little interest or pleasure in doing things: not at all Feeling down, depressed, or hopeless: not at all Feel stressed/tense/nervous/anxious/difficulty sleeping: not at all Do you think of yourself as: straight/heterosexual Gender Identity: male Exam Narrative Exam Narrative: Vital signs and Nursing Notes reviewed: Patient is afebrile, pulse is elevated at 99, blood pressure is elevated at 177/105, pulse ox is normal at 100% on room air General: Awake, alert, anxious uncomfortable appearing adult male, GCS 15, no respiratory distress HEENT: Normocephalic atraumatic, mucous membranes are moist and pink, eyes are clear, normal conjunctiva, vision is grossly intact, patient is partially edentulous Chest: Lungs are clear to auscultation with good air entry, there is no wheezing rhonchi or rales appreciated no accessory muscle use, patient is speaking in complete sentences-no chest wall tenderness to palpation CVS: Regular rate and rhythm S1-S2, no murmurs rubs or gallops, pulses are brisk and equal bilaterally ABD: Soft, nondistended, nontender, no rebound guarding or rigidity, bowel sounds are normal, no pulsatile masses appreciated Extremities: There is redness, tenderness and swelling to the left distal tibia and fibula. Foot is mildly edematous. Dorsalis pedis pulses intact. There is an approximately 1.5 x 1.5 cm ulcer on the plantar surface of the hallux on the left foot. There was brown foul-smelling drainage on the dressing overlying this ulcer but the wound edges are clean with no sign of active infection of necrosis Skin: Normal in appearance without rash,pallor, petechiae or purpura Neuro: No focal deficits Constitutional Vital Signs, click to edit/add: Last Vital Signs Temp 98.1 F 08/29/24 04:30 Pulse 99 H 08/29/24 04:30 Resp 22 H 08/29/24 04:30 BP 177/105 H 08/29/24 04:30 Pulse Ox 100 08/29/24 04:30 O2 Del Method Room Air 08/29/24 04:30 Course Vital Signs Vital signs: Vital Signs Temperature 98.1 F 08/29/24 04:30 Pulse Rate 99 H 08/29/24 04:30 Respiratory Rate 22 H 08/29/24 04:30 Blood Pressure 177/105 H 08/29/24 04:30 Pulse Oximetry 100 08/29/24 04:30 Oxygen Delivery Method Room Air 08/29/24 04:30 Temperature 98.1 F 08/29/24 04:30 Pulse Rate 99 H 08/29/24 04:30 Respiratory Rate 22 H 08/29/24 04:30 Blood Pressure 177/105 H 08/29/24 04:30 Pulse Oximetry 100 08/29/24 04:30 Oxygen Delivery Method Room Air 08/29/24 04:30 MDM - Extremity (Nontraumatic) MDM Narrative Medical decision making narrative: This 53-year-old male presents for evaluation of left ankle pain and swelling. He was wearing a cast that was placed by Dr. Vallejo recently for treatment of an ulcer on the base of his left great toe. The patient states that yesterday he twisted his left ankle while in the cast and this morning had pain and felt that the cast was too tight and cut the cast off. He does have swelling and tenderness that is concerning for a fracture of the distal tibia and fibula however he has had ankle surgery due to a bimalleolar fracture last March. The patient was medicated with a milligram of Dilaudid. EKG was done upon arrival which is a sinus rhythm at 99 bpm. I ordered preop workup thinking that this patient had a new fracture to this extremity before realizing that he had had ankle surgery last March. White count is minimally elevated 11. Electrolytes are normal. There is a mild elevation in his creatinine compared to his baseline. X-ray of the extremity shows no acute fracture with some air between the first and second toes. Case was discussed with Dr. Vallejo who is familiar with the patient and will see him in his office tomorrow. He suggests a xerofoam packing and post op shoe. The ulcer was irrigated with hydrogen peroxide and this dressing was applied by myself. A posterior Ortho-Glass splint was then applied to immobilize the foot and ankle. Patient tolerated procedure well. He was medicated with Percocet and given 1 Percocet to take home. He declined the need for a prescription for pain medication. He states he will follow-up with Dr. Vallejo tomorrow Medical Records Medical records narrative: The [address] [address] XRay Report Signed Patient: MATTY WADE MR#: [id number] : 1970 Acct:[id number] Age/Sex: 53 / M ADM Date: 08/29/24 Loc: ER Attending Dr: Ordering Physician: Ramandeep Mitchell Date of Service: 08/29/24 Procedure(s): XR ankle LT min 3V Accession Number(s): [id number] cc: Caden Mendez M.D.; Ramandeep Mitchell~ The [address] [address] Patient Name: MATTY WADE MRN: [id number] date: 1970 Sex: M Assigned Patient Location: ED.MAIN Current Patient Location: ER Accession/Order Number: [id number] Exam Date: 08/29/2024 05:10 Report Date: 08/29/2024 05:32 At the request of: RAMANDEEP MITCHELL Procedure: XR ankle LT min 3V EXAM: XR foot LT min 3V, XR ankle LT min 3V HISTORY: left foot ulcer, base of great toe COMPARISON: Left ankle radiographs dated 07/04/2024. TECHNIQUE: 3 views of the left ankle and 4 views of the left foot were obtained. FINDINGS: There are postsurgical changes of ORIF of a remote distal left fibular fracture. The fracture line remains visible. There is stable mild lucency about the 2 syndesmotic screws. No acute fracture or dislocation is seen. There is a well-corticated ossific density at the tip of the medial malleolus that is likely related to remote trauma. There are scattered degenerative changes. There is no significant left ankle joint effusion. There is a small Achilles calcaneal enthesophyte. There appears to be some air within the soft tissues between the bases of the first and second toes. No radiographic evidence of osteomyelitis is seen. XR/XR ankle LT min 3V IMPRESSION: 1. There appears to be some air within the soft tissues between the bases of the left first and second toes. No radiographic evidence of osteomyelitis is seen. If there is persistent concern, further evaluation with MRI is recommended. 2. Postsurgical changes as described with stable lucency about the syndesmotic screws, concerning for loosening. Electronically authenticated by: Kristin AMES Date: 08/29/2024 05:[address] [address] XRay Report Signed Patient: MATTY WADE MR#: [id number] : 1970 Acct:[id number] Age/Sex: 53 / M ADM Date: 08/29/24 Loc: ER Attending Dr: Ordering Physician: Ramandeep Mitchell Date of Service: 08/29/24 Procedure(s): XR foot LT min 3V Accession Number(s): [id number] cc: Caden Mendez M.D.; Ramandeep Marker~ The [place] [id number] Patient Name: MATTY WADE MRN: [id number] date: 1970 Sex: M Assigned Patient Location: ED.MAIN Current Patient Location: ER Accession/Order Number: [id number] Exam Date: 08/29/2024 05:10 Report Date: 08/29/2024 05:32 At the request of: RAMANDEEP MARKER Procedure: XR foot LT min 3V EXAM: XR foot LT min 3V, XR ankle LT min 3V HISTORY: left foot ulcer, base of great toe COMPARISON: Left ankle radiographs dated 07/04/2024. TECHNIQUE: 3 views of the left ankle and 4 views of the left foot were obtained. FINDINGS: There are postsurgical changes of ORIF of a remote distal left fibular fracture. The fracture line remains visible. There is stable mild lucency about the 2 syndesmotic screws. No acute fracture or dislocation is seen. There is a well-corticated ossific density at the tip of the medial malleolus that is likely related to remote trauma. There are scattered degenerative changes. There is no significant left ankle joint effusion. There is a small Achilles calcaneal enthesophyte. There appears to be some air within the soft tissues between the bases of the first and second toes. No radiographic evidence of osteomyelitis is seen. XR/XR foot LT min 3V IMPRESSION: 1. There appears to be some air within the soft tissues between the bases of the left first and second toes. No radiographic evidence of osteomyelitis is seen. If there is persistent concern, further evaluation with MRI is recommended. 2. Postsurgical changes as described with stable lucency about the syndesmotic screws, concerning for loosening. Electronically authenticated by: Kristin AMES Date: 08/29/2024 05:32 Lab Data Labs: Lab Results 08/29/24 Range/Units 04:45 WBC 11.3 H (4.0-11.0) 10^3/uL RBC 5.73 (4.70-6.10) 10^6/uL Hgb 15.4 (14.0-18.0) g/dL Hct 48.5 (42.0-54.0) % MCV 84.6 (80.0-94.0) fL MCH 26.9 (25.9-34.0) pg MCHC 31.8 (29.9-35.2) g/dL RDW 15.3 H (11.0-15.0) % Plt Count 159 (150-450) 10^3/uL MPV 9.2 L (9.5-13.5) fL Neut % (Auto) 83.2 H (43.0-75.0) % Lymph % (Auto) 6.9 L (20.5-60.0) % [place] % (Auto) 7.7 (1.7-12.0) % Eos % (Auto) 1.1 (0.9-7.0) % Baso % (Auto) 0.5 (0.2-2.0) % Neut # (Auto) 9.4 H (1.4-6.5) 10^3/uL Lymph # (Auto) 0.8 L (1.2-3.8) 10^3/uL [place] # (Auto) 0.9 H (0.3-0.8) 10^3/uL Eos # (Auto) 0.1 (0.0-0.7) 10^3/uL Baso # (Auto) 0.1 (0.0-0.1) 10^3/uL Abs Immat Gran (auto) 0.07 H (0.00-0.03) 10^3/uL Imm/Tot Granulo (auto) 0.6 H (0.0-0.5) % Sodium 137 (136-145) mmol/L Potassium 3.4 L (3.5-5.1) mmol/L Chloride 100 (98-107) mmol/L Carbon Dioxide 28.6 (21.0-32.0) mmol/L Anion Gap 11.8 BUN 13.0 (7.0-18.0) mg/dL Creatinine 1.40 H (0.70-1.30) mg/dL Est GFR ( Amer) >60 (>=60 mL/min/1.73m^2) Est GFR (Non-Af Amer) 53 L (>=60 mL/min/1.73m^2) BUN/Creatinine Ratio 9.3 Glucose 95 (74-106) mg/dL Lactate 2.1 H (0.4-2.0) mmol/L Calcium 8.9 (8.5-10.1) mg/dL Total Bilirubin 0.7 (0.2-1.0) mg/dL AST 34 (15-37) U/L ALT 28 (16-63) U/L Alkaline Phosphatase 150 H (46-116) U/L Total Protein 8.0 (6.4-8.2) g/dL Albumin 3.7 (3.4-5.0) g/dL Globulin 4.3 g/dL Albumin/Globulin Ratio 0.9 ECG Data Attestation ECG: I personally reviewed and interpreted this ECG as follows: (Sinus rhythm at 99 bpm, normal axis, nonspecific ST changes, no acute ST segment elevation or T wave inversion) Discharge Plan Discharge Chief Complaint: Extremity Problem, Nontraumatic Clinical Impression: Ankle sprain, Chronic foot ulcer Patient Disposition: Home, Self-Care Time of Disposition Decision: 06:38 Condition: Good Prescriptions / Home Meds: No Action potassium chloride 10 mEq tablet extended release 10 meq PO Q12H modafinil 200 mg tablet 200 mg PO BID sodium chloride 0.65 % aerosol,spray 1 spray intranasal BID PRN (Reason: dry nasal passages) Qty: 15 0RF gabapentin 600 mg tablet 600 mg PO Q8H carvedilol 25 mg tablet 25 mg PO BID Rx Instructions: must administer with a meal/food doxazosin 8 mg tablet 8 mg PO DAILY simvastatin 20 mg tablet 20 mg PO DAILY pantoprazole 40 mg tablet,delayed release (DR/EC) 40 mg PO DAILY glycopyrrolate 1 mg tablet 1 mg PO BID furosemide 20 mg tablet 20 mg PO DAILY tizanidine 4 mg capsule 4 mg PO .EVERY NIGHT testosterone cypionate 100 mg/mL oil 100 mg subcut .EVERY 2 WEEKS citalopram 20 mg tablet 20 mg PO DAILY clonazepam 0.5 mg tablet 0.5 mg PO DAILY hydroxyzine pamoate 25 mg capsule 25 mg PO QPM cholecalciferol (vitamin D3) 125 mcg (5,000 unit) capsule 5,000 unit PO DAILY multivitamin [Daily Multi-Vitamin] Tablet 1 tab PO DAILY melatonin 10 mg capsule 10 mg PO DAILY amantadine HCl 100 mg tablet 100 mg PO BID sumatriptan succinate 100 mg tablet 100 mg PO Q2H PRN (Reason: migraine headache) aspirin [Adult Low Dose Aspirin] 81 mg tablet,delayed release (DR/EC) 81 mg PO BID 30 Days Qty: 60 0RF hydrocodone-acetaminophen 5-325 mg tablet 1 tab PO Q6H PRN (Reason: pain) 7 Days Qty: 28 0RF aspirin [Adult Low Dose Aspirin] 81 mg tablet,delayed release (DR/EC) 81 mg PO BID 30 Days Qty: 60 0RF cefadroxil 500 mg capsule 500 mg PO BID 7 Days Qty: 14 0RF ondansetron 4 mg tablet,disintegrating 4 mg PO Q8H PRN (Reason: nausea and vomiting) 5 Days Qty: 15 0RF cholecalciferol (vitamin D3) 125 mcg (5,000 unit) capsule 125 mcg PO DAILY 90 Days Qty: 90 0RF sennosides [Senna Laxative] 8.6 mg tablet 8.6 mg PO DAILY PRN (Reason: constipation) 7 Days Qty: 7 0RF Print Language: Ghanaian Instructions: Ankle Sprain (ED), Foot Ulcers in a Person with Diabetes (ED), Chronic Wounds (ED) Referrals: Caden Mendez MD [Primary Care Provider] - 1 week Trey Vallejo DPM [Physician] - As soon as possible
[2024-08-29 05:05] LABS: Alanine Aminotransferase 28 U/L (16-63); Albumin Globulin Ratio 0.9; Albumin Level 3.7 g/dL (3.4-5.0); Alkaline Phosphatase 150 U/L (46-116); Anion Gap 11.8; Aspartate Amino Transferase 34 U/L (15-37); BUN Creatinine Ratio 9.3; Bilirubin Total 0.7 mg/dL (0.2-1.0); Calcium 8.9 mg/dL (8.5-10.1); Carbon Dioxide 28.6 mmol/L (21.0-32.0); Chloride 100 mmol/L (98-107); Estimated GFR (African America >60 (>=60 mL/min/1.73m^2); Estimated GFR (Non-African Ame 53 (>=60 mL/min/1.73m^2); Globulin 4.3 g/dL; Glucose 95 mg/dL (74-106); Potassium 3.4 mmol/L (3.5-5.1); Sodium 137 mmol/L (136-145)
[2024-08-29 05:08] LABS: Lactate/Lactic Acid 2.1 mmol/L (0.4-2.0)
[2024-08-29] MEDS: OXYCODONE HCL/ACETAMINOPHEN 5MG/325MG 2 TAB PO (06:45)
[2024-08-29] MEDS: OXYCODONE HCL/ACETAMINOPHEN 5MG/325MG 1 TAB PO (06:46)
== END 2024-08-29 07:04 | disposition home or self-care (01) ==
PROVIDERS: Emergency Provider Emergency Medicine; PCP Family Medicine
DX: S93.402A Sprain of unspecified ligament of left ankle, initial encounter (principal); X50.1XXA Overexertion from prolonged static or awkward postures, initial encounter; Z98.1 Arthrodesis status; L97.529 Non-pressure chronic ulcer of other part of left foot with unspecified severity; Z98.890 Other specified postprocedural states
CPT/HCPCS: 29515; 36415; 73610; 73630; 80053; 83605; 85025; 93005; 96374; 96375; 99285; J1171; J2405

== ENCOUNTER 2024-08-30 15:28 | Outpatient (OUT) | payer MEDICAID, SELFPAY ==
--- NOTE | 2024-08-30 15:32 | US_ITS ---
The [address] [address] Patient Name: MATTY WADE MRN: [id number] date: 1970 Sex: M Assigned Patient Location: Current Patient Location: Accession/Order Number: [id number] Exam Date: 08/30/2024 15:36 Report Date: 08/30/2024 16:31 At the request of: BRAYDEN LEMONS Procedure: US venous doppler LE LT EXAMINATION: US venous doppler LE LT HISTORY: Left Leg Thrombosis COMPARISON: No relevant comparison available. FINDINGS: REGION: Left lower extremity THROMBI: None. COMPRESSIBILITY: Normal compressibility. FLOW: Normal waveform and antegrade flow between 5 and 20 cm/s. OTHER: None. US/US venous doppler LE LT IMPRESSION: 1. No deep vein thrombus within the left lower extremity. Electronically authenticated by: SHY MISTRY Date: 08/30/2024 16:31
== END 2024-08-30 15:29 | disposition home or self-care (01) ==
LOC: WC 15:29
PROVIDERS: PCP Family Medicine; Visit Provider Physician Assistant
DX: I82.402 Acute embolism and thrombosis of unspecified deep veins of left lower extremity (principal); E11.621 Type 2 diabetes mellitus with foot ulcer; L97.522 Non-pressure chronic ulcer of other part of left foot with fat layer exposed
CPT/HCPCS: 11043; 93971

== ENCOUNTER 2024-08-31 11:20 | Outpatient (OUT) | payer MEDICAID, SELFPAY ==
--- OUTSIDE RECORDS SUMMARY | 2024-08-31 11:24 | XMS_ITS | CCD ---
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 Operator Name Role Phone UNKNOWN, PROVIDER Admitting Unavailable UNKNOWN, PROVIDER Attending Unavailable VENUS MENDEZ Referring Unavailable VENUS MENDEZ Primary Care Unavailable [place] Procedure Practitioner Unavailab le UNKNOWN, PROVIDER Surgeon Unavailable [place] Procedure Practitioner Unavailab le SANDRA BILL Surgeon Unavailable UNKNOWN, PROVIDER Admitting Unavailable UNKNOWN, PROVIDER Attending Unavailable VENUS MENDEZ Referring Unavailable VENUS MENDEZ Primary Care Unavailable [place] Procedure Practitioner Unavailab le UNKNOWN, PROVIDER Surgeon Unavailable Venus Mendez Primary Care Physician [phone] DONOVAN Admitting Unavailable HOY [...] source) Aspartame Drug Allergy 08-17-20 18 [facility] (1 source) avoid; Translations: [Unknown] Propensity to adverse reactions (disorder) 08-17-20 18 [facility] (1 source) vitamin B12; Translations: [cyanocobalamin] Drug Allergy Unknown (qualifier value) [facility] (1 source) Acetaminophen / HYDROcodone Drug Allergy [facility] (1 source) Corticosteroids Drug allergy (disorder) [facility] (1 source) fentaNYL Drug Allergy [facility] (1 source) Misc-Food; Translations: [Misc-Food] Food allergy (disorder) [facility] (1 source) Corticosteroids Drug allergy (disorder) 05-14-20 [facility] Rep[facility] (4 sources) fentaNYL [...] sources) Opioid Agonist Start: 03-20-2024 HYDROcodone-acet aminophen ([place]) 5-325 MG tablet 03/20/2024 Active amantadine hydrochloride [...] Take with food. . 02/22/2023 Active sennosides, senior care 8.6 mg oral tablet (4 sources) Start: [...] by mouth at bedtime. 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 ASPIRIN] Onset: 3 Episodic Other aftercare (1 source) Other terminal carman (current) drug therapy; Translations: [OTH URBAN DESIGN CONSULTANT CURRENT DRUG THERAPY] Onset: 3 Episodic Other [...] Test Name Value Interpretation Reference Range Facility [facility] 01-03-2024 L Specimen: [id number] Received: 01/03/24 Status: SOUT Re Num: [id number] Spec Type: Surgical Subm Dr: Trey Vallejo DPM, MS Tissues: A Bone Fragments - Pathologic Fracture (PROXIMAL PHALANX RIGHT HALLU) Procedures: HE/2, Gross/Micro L5, Decalcification Age/ Patient Sex Location Account Attending Physician Matty Garces 53/M LABELL [id number] Trey Vallejo DPM, MS SPEC NUM: [id number] RECD: 01/03/24 STATUS: GIOVANNI [facility] NUM: [id number] SOFY: 01/03/[address] [facility] [address]: Trey Vallejo DPM, MS ENTERED: 01/03/24 [facility] DR: Ayesha Lundberg SPEC TYPE: Surgical DEPT: [...] Sectioning reveals unremarkable yellow, spongy bone matrix. Physical Therapist Assistant sections are submitted in A1 following decal. Clinical history: Non-pressure chronic ulcer . Right hallux IPJ arthroplasty with wound debridement and graft application TW Specimen: [id number] Received: 01/03/24 Status: GIOVANNI Ophelia Num: [id number] Spec Type: Surgical Subm Dr: Trey Vallejo DPM, MS Tissues: A Bone Fragments - Pathologic Fracture (PROXIMAL PHALANX RIGHT HALLU) Procedures: HE/2, Gross/Micro L5, Decalcification Patient: Matty Garces [id number] (Continued) Specimen: [id number] Received: 01/03/24 (Continued) Signed (signature on file) Viral Rae MD 01/06/24 1838 Specimen: [id number] Received: 01/03/24 Status: GIOVANNI Jacinto Num: [id number] Spec Type: Surgical Subm Dr: Trey Vallejo,DPJose Eduardo, [place] Tissues: A Bone Fragments - Pathologic Fracture (PROXIMAL PHALANX RIGHT HALLU) Procedures: HE/2, Gross/Micro L5, Decalcification Patient: Matty Garces [id number] (Continued) Specimen: [id number] Received: 01/03/24 (Continued) CPT Codes 08234 Specimen: [id number] Received: 01/03/24 Status: GIOVANNI Jacinto Num: [id number] Spec Type: Surgical Subm Dr: Trey Vallejo,[place], [place] Tissues: A Bone Fragments - Pathologic Fracture (PROXIMAL PHALANX RIGHT HALLU) Procedures: HE/2, Gross/Micro L5, Decalcification Patient: Matty Garces [id number] (Continued) Signed (signature on file) Kuldip-Christopher Rae MD 01/06/24 1838 Normal [facility] CT CSPINE WO CONon [...] Anterior corpectomy at C5-C6. Electronically authenticated by: XpliantOR SAID Date: 2022-12-06 06:37 Normal [facility] CT FACIAL BONES WO CONon CT [...] maxillary sinus mucoperiosteal thickening Electronically authenticated by: Xpliant[employer] SAID Date: 2022-12-06 06:41 Normal [facility] CT HEAD WO CONon 12-06-2022 CT [...] JORDAN Date: 2022-12-06 06:39 Normal [facility] XR ELBOW RT MIN 3 VIEWSon XR ELBOW RT MIN 3 VIEWS Exam: Radiographs: XR ELBOW RT MIN 3 VIEWS Reason for exam: Elbow pain Comparison: None IMPRESSION: Right elbow degenerative changes. Olecranon spur. Remainder of the right elbow is unremarkable. Electronically authenticated by: MICHAEL CASANOVA Date: 2022-12-06 07:22 Normal [facility] XR FOREARM RT 2Von XR FOREARM RT 2V Exam: Radiographs: XR FOREARM RT 2V Reason for exam: Forearm pain Comparison: None IMPRESSION: Mild degenerative changes in the right elbow and wrist. Right forearm is otherwise unremarkable. Electronically authenticated by: MICHAEL CASANOVA Date: 2022-12-06 08:07 Normal [facility] PSA, FREE AND TOTAL RATIOon 12-03-2022 % Free PSA 9.0 % Normal [facility] Comment on above: Result Comment: The [...] Performed By: #### P SAFREE #### [facility] [address] [place] [address] Dr. Shabnam Rae Prostate specific Ag [Mass/Vol] 5.9 ng/mL Critically high 0.0-4.0 [facility] Comment on above: Result Comment: Tanja BRANTLEY methodology. . According to the [employer] [employer], Serum PSA should decrease and [...] Performed By: #### P SAFREE #### [facility] [address] [address] [address] Shabnam Rae PSA, Free 0.53 ng/mL Normal N/A [facility] Comment on above: Result Comment: Tanja ayala ECLIA methodology. Performed By: #### P SAFREE #### [facility] [address] [address] [address] Shabnam Rae INSULINon 12-02-2022 Insulin 20.2 uIU/mL Normal 2.6-24.9 [facility] Comment on above: Performed By: #### P SASC #### [facility] [address] [address] [address] Shabnam Rae TESTOSTERONE, TOTALon 2022 Testosterone [Mass/Vol] 256 ng/dL Critically low 264-916 [facility] Comment on above: Result Comment: Adul t male reference interval is based on a population of healthy nonobese males (BMI <30) between 19 and 39 years old. adia Ch.al. JCEM 2017,102;7461-0215. PMID: [id number]. Performed By: #### P SASC #### [facility] [address] [address] [address] Shabnam Rae CBC AUTO DIFFon 12-01-2022 BASO # 0.1 103/ul Normal 0.0-0.1 [facility] Comment on above: Performed By: #### P SASC #### [facility] [address] [address] [address] Shabnam Rae Basophils/100 WBC (Bld) 1.0 % Normal 0.2-2.0 [facility] Comment on above: Performed By: #### P SASC #### [facility] [address] [place] [address] Dr. Shabnam Rae EO # 0.1 103/ul Normal 0.0-0.7 [facility] Comment on above: Performed By: #### P SASC #### [facility] [address] [place] [address] Dr. Shabnam Rae Eosinophils/100 WBC (Bld) 1.8 % Normal 0.9-7.0 [facility] Comment on above: Performed By: #### P SASC #### [facility] [address] [place] [address] Dr. Shabnam Rae Erythrocyte distribution width (RBC) [Ratio] 14.8 % Normal 11.0-15.0 [facility] Comment on above: Performed By: #### P SASC #### [facility] [address] [place] [address] Dr. Shabnam Rae Hematocrit (Bld) [Volume fraction] 49.9 % Normal 42.0-54.0 [facility] Comment on above: Performed By: #### P SASC #### [facility] [address] [place] [address] Dr. Shabnam Rae Hemoglobin (Bld) [Mass/Vol] 16.0 g/dL Normal 14.0-18.0 [facility] Comment on above: Performed By: #### P SASC #### [facility] [address] [place] [address] Dr. Shabnam Rae IG # 0.04 10e3/ul Critically high 0.00-0.03 [facility] Comment on above: Performed By: #### P SASC #### [facility] [address] [place] [address] Dr. Shabnam Rae IG % 0.6 % Critically high 0.0-0.5 [facility] Comment on above: Performed By: #### P SASC #### [facility] [address] [place] [address] Dr. Shabnam Rae LYMPH # 1.0 103/ul Critically low 1.2-3.8 [facility] Comment on above: Performed By: #### P SASC #### [facility] [address] [place] [address] Dr. Shabnam Rae Lymphocytes/100 WBC (Bld) 16.2 % Critically low 20.5-60.0 [facility] Comment on above: Performed By: #### P SASC #### [facility] [address] [place] [address] Dr. Shabnam Rae MANUAL DIFF REQ NO Normal [facility] Comment on above: Performed By: #### P SASC #### [facility] [address] [place] [address] Dr. Shabnam Rae MCH (RBC) [Entitic mass] 27.7 pg Normal 25.9-34.0 [facility] Comment on above: Performed By: #### P SASC #### [facility] [address] [place] [address] Dr. Shabnam Rae MCHC (RBC) [Mass/Vol] 32.1 g/dL Normal 29.9-35.2 [facility] Comment on above: Performed By: #### P SASC #### [facility] [address] [place] [address] Dr. Shabnam Rae MCV (RBC) [Entitic vol] 86.3 fL Normal 80.0-94.0 [facility] Comment on above: Performed By: #### P SASC #### [facility] [address] [place] [address] Dr. Shabnam Rae MONO # 0.5 103/ul Normal 0.3-0.8 [facility] Comment on above: Performed By: #### P SASC #### [facility] [address] [place] [address] Dr. Shabnam Rae Monocytes/100 WBC (Bld) 7.6 % Normal 1.7-12.0 [facility] Comment on above: Performed By: #### P SASC #### [facility] [address] [place] [address] Dr. Shabnam Rae NEUT # 4.6 103/ul Normal 1.4-6.5 [facility] Comment on above: Performed By: #### P SASC #### [facility] [address] [address] [address] Shabnam Rae Neutrophils/100 WBC (Bld) 72.8 % Normal 43.0-75.0 [facility] Comment on above: Performed By: #### P SASC #### [facility] [address] [address] [address] Shabnam Rae Platelet mean volume (Bld) [Entitic vol] 9.8 fL Normal 9.5-13.5 [facility] Comment on above: Performed By: #### P SASC #### [facility] [address] [place] [address] Dr. Shabnam Rae PLT 203 103/ul Normal 150-450 [facility] Comment on above: Performed By: #### P SASC #### [facility] [address] [place] [address] Dr. Shabnam Rae RBC 5.78 106/ul Normal 4.70-6.10 [facility] Comment on above: Performed By: #### P SASC #### [facility] [address] [place] [address] Dr. Shabnam Rae WBC 6.3 103/ul Normal 4.0-11.0 [facility] Comment on above: Performed By: #### P SASC #### [facility] [address] [place] [address] Dr. Shabnam Rae FREE THYROXINE INDEX T7on FTI 2.05 Normal 1.30-4.50 [facility] Comment on above: Performed By: #### T SH, CMP, LIPID, T7, URIC #### [facility] [address] [place] [address] Dr. Shabnam Rae T3U 33.0 % Normal 33.0-40.0 [facility] Comment on above: Performed By: #### T SH, CMP, LIPID, T7, URIC #### [facility] [address] [place] [address] Dr. Shabnam Rae T4 [Mass/Vol] 6.20 ug/dL Normal 4.50-12.10 [facility] Comment on above: Performed By: #### T SH, CMP, LIPID, T7, URIC #### [facility] [address] [address] [address] Shabnam Rae GLYCOHEMOGLOBIN A1Con 2022 ADA RECOMMENDATION SEE BELOW Normal [facility] Comment on above: Result Comment: ADA RECOMMENDED LIMIT 4.0 - 6.0 ADA THERAPEUTIC TARGET < 7.0 ACTION SUGGESTED > 7.0 Performed By: #### P SASC #### [facility] [address] [address] [address] Shabnam Rae Glucose [Mass/Vol] 114 mg/dL Normal [facility] Comment on above: Performed By: #### P SASC #### [facility] [address] [address] [address] Shabnam Rae HbA1c (Bld) [Mass fraction] 5.6 % Normal 4.5-6.2 [facility] Comment on above: Performed By: #### P SASC #### [facility] [address] [address] [address] Shabnam Rae LIPID PROFILEon 12-01-2022 CHOL-HDL RATIO NORM SEE BELOW Normal [facility] Comment on above: Result Comment: 3.3 - 4.4 LOW RISK 4.4 - 7.1 AVERAGE RISK 7.1 - 11.0 MODERATE RISK >11.0 HIGH RISK Performed By: #### T SH, CMP, LIPID, T7, URIC #### [facility] [address] [address] [address] Shabnam Rae Cholesterol [Mass/Vol] 176 mg/dL Normal <=200 [facility] Comment on above: Performed By: #### T SH, CMP, LIPID, T7, URIC #### [facility] [address] [address] [address] Shabnam Rae Cholesterol in HDL [Mass/Vol] 48 mg/dL Normal 40-60 [facility] Comment on above: Performed By: #### T SH, CMP, LIPID, T7, URIC #### [facility] [address] [address] [address] Shabnam Rae Cholesterol in LDL [Mass/Vol] 108.2 mg/dL Normal [facility] Comment on above: Performed By: #### T SH, CMP, LIPID, T7, URIC #### [facility] [address] [address] [address] Shabnam Rae Cholesterol.total/Ch olesterol in HDL [Mass ratio] 3.7 {ratio} Normal [facility] Comment on above: Performed By: #### T SH, CMP, LIPID, T7, URIC #### [facility] [address] [address] [address] Shabnam Rae HDL NORMAL > or = 60 mg/dl - LOW CARDIOVASCULAR RISK <40 mg/dl - HIGH CARDIOVASCULAR RISK Normal [facility] Comment on above: Performed By: #### T SH, CMP, LIPID, T7, URIC #### [facility] [address] [address] [address] Shabnam Rae LDL CALC NORMAL SEE BELOW Normal [facility] Comment on above: Result Comment: <100 mg/dl OPTIMAL 100 - 129 mg/dl NEAR OR ABOVE OPTIMAL 130 - 159 mg/dl BORDERLINE HIGH 160 - 189 mg/dl HIGH >190 mg/dl VERY HIGH Performed By: #### T SH, CMP, LIPID, T7, URIC #### [facility] [address] [address] [address] Shabnam Rea Triglyceride [Mass/Vol] 99 mg/dL Normal <=150 [facility] Comment on above: Performed By: #### T SH, CMP, LIPID, T7, URIC #### [facility] [address] [address] [address] Shabnam Rae VLDL CALC 19.8 mg/dL Normal [facility] Comment on above: Performed By: #### T SH, CMP, LIPID, T7, URIC #### [facility] [address] [address] [address] Shabnam Rae PROF 14(COMP METB)on 023 Albumin [Mass/Vol] 4.1 g/dL Normal 3.4-5.0 [facility] Comment on above: Performed By: #### T SH, CMP, LIPID, T7, URIC #### [facility] [address] [address] [address] Shabnam Rae Albumin/Globulin [Mass ratio] 1.1 {ratio} Normal [facility] Comment on above: Performed By: #### T SH, CMP, LIPID, T7, URIC #### [facility] [address] [address] [address] Shabnam Rae ALP [Catalytic activity/Vol] 101 U/L Normal 46-116 [facility] Comment on above: Performed By: #### T SH, CMP, LIPID, T7, URIC #### [facility] [address] [place] [address] Dr. Shabnam Rae ALT [Catalytic activity/Vol] 26 U/L Normal 16-63 [facility] Comment on above: Performed By: #### T SH, CMP, LIPID, T7, URIC #### [facility] [address] [place] [address] Dr. Shabnam Rae Anion gap [Moles/Vol] 10.1 mmol/L Normal [facility] Comment on above: Performed By: #### T SH, CMP, LIPID, T7, URIC #### [facility] [address] [place] [address] Dr. Shabnam Rae AST [Catalytic activity/Vol] 19 U/L Normal 15-37 [facility] Comment on above: Performed By: #### T SH, CMP, LIPID, T7, URIC #### [facility] [address] [address] [address] Shabnam Rae Bilirubin [Mass/Vol] 0.8 mg/dL Normal 0.2-1.0 [facility] Comment on above: Performed By: #### T SH, CMP, LIPID, T7, URIC #### [facility] [address] [place] [address] Dr. Shabnam Rae Calcium [Mass/Vol] 9.5 mg/dL Normal 8.5-10.1 [facility] Comment on above: Performed By: #### T SH, CMP, LIPID, T7, URIC #### [facility] [address] [address] [address] Shabnam Rae Chloride [Moles/Vol] 102 mmol/L Normal 98-107 [facility] Comment on above: Performed By: #### T SH, CMP, LIPID, T7, URIC #### [facility] [address] [address] [address] Shabnam Rae CO2 [Moles/Vol] 32.4 mmol/L Critically high 21.0-32.0 [facility] Comment on above: Performed By: #### T SH, CMP, LIPID, T7, URIC #### [facility] [address] [address] [address] Shabnam Rae Creatinine [Mass/Vol] 1.00 mg/dL Normal 0.70-1.30 [facility] Comment on above: Performed By: #### T SH, CMP, LIPID, T7, URIC #### [facility] [address] [address] [address] Shabnam Rae EGFR-AF GABONESE >60 Normal >=60 [facility] Comment on above: Performed By: #### T SH, CMP, LIPID, T7, URIC #### [facility] [address] [address] [address] Shabnam Rae EGFR-NON AF GABONESE >60 Normal >=60 [facility] Comment on above: Performed By: #### T SH, CMP, LIPID, T7, URIC #### [facility] [address] [address] [address] Shabnam Rae Globulin (S) [Mass/Vol] 3.8 g/dL Normal [facility] Comment on above: Performed By: #### T SH, CMP, LIPID, T7, URIC #### [facility] [address] [address] [address] Shabnam Rae Glucose [Mass/Vol] 94 mg/dL Normal 74-106 [facility] Comment on above: Performed By: #### T SH, CMP, LIPID, T7, URIC #### [facility] [address] [address] [address] Shabnam Rae Potassium [Moles/Vol] 3.5 mmol/L Normal 3.5-5.1 [facility] Comment on above: Performed By: #### T SH, CMP, LIPID, T7, URIC #### [facility] [address] [place] [address] Dr. Shabnam Rae Protein [Mass/Vol] 7.9 g/dL Normal 6.4-8.2 [facility] Comment on above: Performed By: #### T SH, CMP, LIPID, T7, URIC #### [facility] [address] [place] [address] Dr. Shabnam Rae Sodium [Moles/Vol] 141 mmol/L Normal 136-145 [facility] Comment on above: Performed By: #### T SH, CMP, LIPID, T7, URIC #### [facility] [address] [place] [address] Dr. Shabnam Rae Urea nitrogen [Mass/Vol] 15.0 mg/dL Normal 7.0-18.0 [facility] Comment on above: Performed By: #### T SH, CMP, LIPID, T7, URIC #### [facility] [address] [place] [address] Dr. Shabnam Rae Urea nitrogen/Creatinine [Mass ratio] 15.0 mg/mg Normal [facility] Comment on above: Performed By: #### T SH, CMP, LIPID, T7, URIC #### [facility] [address] [place] [address] Dr. Shabnam Rae TSHon 12-01-2022 TSH 1.504 uIU/mL Normal 0.358-3.740 [facility] Comment on above: Performed By: #### T SH, CMP, LIPID, T7, URIC #### [facility] [address] [place] [address] Dr. Shabnam Rae URIC ACID SERUMon 12-01-2022 Urate [Mass/Vol] 6.9 mg/dL Normal 3.5-7.2 [facility] Comment on above: Performed By: #### T SH, CMP, LIPID, T7, URIC #### [facility] [address] [place] [address] Dr. Shabnam Rae TESTOSTERONE, TOTALon 2021 Testosterone [Mass/Vol] 244 ng/dL Critically low 264-916 [facility] Comment on above: Result Comment: Adul t male reference interval is based on a population of healthy nonobese males (BMI <30) between 19 and 39 years old. Dima, et.al. EM 2017,102;9408-3299. PMID: [id number]. Performed By: #### P SAFREE #### [facility] [address] [place] [address] Dr. Shabnam Rae TESTOSTERONE, FREE,DIRECT, T OTALon 03-16-2022 Free Testosterone(Direct) 2.1 pg/mL Critically low 7.2-24.0 [facility] Comment on above: Result Comment: Perf ormed at: BN Performed By: #### C VDTBH #### [facility] [address] [place] [address] Dr. Shabnam Rae Testosterone [Mass/Vol] 252 ng/dL Critically low 264-916 [facility] Comment on above: Result Comment: Adul t male reference interval is based on a population of healthy nonobese males (BMI <30) between 19 and 39 years old. Travison, et.al. JCEM 2017,102;0382-1664. PMID: [id number]. Performed at: CB Performed By: #### C VDTBH #### [facility] [address] [place] [address] Dr. Shabnam Rae Formson 02-26-2022 Forms [id number] 7#1.00CD:127 Normal [facility] Screenson 02-26-2022 Screens [id number] 7#1.00CD:127 Normal [facility] Screens [id number] #1.00CD:127 Normal [facility] Urology Office/Clinic Noteon 02-26-2022 Urology Office/Clinic [...] qualifying data (more content not included)... Normal [facility] Comment on above: Result Comment: Elec tronically Signed By: Viola Grullon MD\.br\Date and Time Signed: 02/26/22 00:20 EDT\.br\Electronically Co-Signed By: Helen Leung\.br\Date and Time Co-Signed: 02/25/22 11:16 EDT Ambulatory Visit Summaryon 0 02-25-2022 Ambulatory Visit Summary SHERI MATTY T :1970 Visit Date:02/25/2022 Ambulatory Visit Instructions Your Diagnosis Hydrocele Varicocele BPH without urinary obstruction Tests Performed Urnls Dip Stick Auto w/o Microscopy POC 69748 Your Care Team Attending Physician - Viola [...] Urnls Dip Stick Auto w/o Microscopy POC 38352 (02/25/2022) Bilirubin Urine Dipstick - Negative Blood Urine Dipstick - Negative Glucose Urine Dipstick - Negative Ketones Urine Dipstick - Negative Leukocytes Urine Dipstick - Negative Nitrite Urine Dipstick - Negative Protein Urine Dipstick - Negative Specific [place] Urine Dipstick - >=1.030 Urine Appearance Urine [...] the hydrocele for any changes. ? Take bufc-igy-vpmgnhx and prescription medicines only as told by [...] intended t (more content not included)... Normal [facility] Patient Educationon 02-26-20 Patient Education Urology [...] the hydrocele for any changes. ? Take bgjy-tan-fongoht and prescription medicines only as told by [...] 02/17/2011 Document Revised: 09/10/2018 Document Reviewed: 09/10/2018 babberly Patient Education ? 2019 [employer]. Normal [facility] ED Note-Physicianon 02-04-20 ED Note-Physician [id number]#[id number]:127 Normal [facility] RAD - Ultrasound Reporton RAD - Ultrasound Report [id number] #1.00CD:127 Normal [facility] RAD - CT Reporton 02-02-2022 RAD - CT Report [id number]#1.00CD:127 [facility] RAD - CT Report [id number]#1.00CD:127 Normal [facility] CBC AUTO DIFFon 01-05-2022 BASO # 0.0 103/ul Normal 0.0-0.1 [facility] Comment on above: Performed By: #### P SAFREE #### [facility] [address] [place], [place] [address] Dr. Shabnam Rae Basophils/100 WBC (Bld) 0.6 % Normal 0.2-2.0 [facility] Comment on above: Performed By: #### P SAFREE #### [facility] [address] [address] [address] Shabnam Rae EO # 0.1 103/ul Normal 0.0-0.7 [facility] Comment on above: Performed By: #### P SAFREE #### [facility] [address] [address] [address] Shabnam Rae Eosinophils/100 WBC (Bld) 2.1 % Normal 0.9-7.0 [facility] Comment on above: Performed By: #### P SAFREE #### [facility] [address] [place] [address] Dr. Shabnam Rae Erythrocyte distribution width (RBC) [Ratio] 13.1 % Normal 11.0-15.0 [facility] Comment on above: Performed By: #### P SAFREE #### [facility] [address] [place] [address] Dr. Shabnam Rae Hematocrit (Bld) [Volume fraction] 43.1 % Normal 42.0-54.0 [facility] Comment on above: Performed By: #### P SAFREE #### [facility] [address] [place] [address] Dr. Shabnam Rae Hemoglobin (Bld) [Mass/Vol] 13.7 g/dL Critically low 14.0-18.0 [facility] Comment on above: Performed By: #### P SAFREE #### [facility] [address] [place] [address] Dr. Shabnam Rae IG # 0.04 10e3/ul Critically high 0.00-0.03 [facility] Comment on above: Performed By: #### P SAFREE #### [facility] [address] [place] [address] Dr. Shabnam Rae IG % 0.6 % Critically high 0.0-0.5 [facility] Comment on above: Performed By: #### P SAFREE #### [facility] [address] [place] [address] Dr. Shabnam Rae LYMPH # 0.9 103/ul Critically low 1.2-3.8 [facility] Comment on above: Performed By: #### P SAFREE #### [facility] [address] [address] [address] Shabnam Rae Lymphocytes/100 WBC (Bld) 13.1 % Critically low 20.5-60.0 [facility] Comment on above: Performed By: #### P SAFREE #### [facility] [address] [address] [address] Shabnam Rae MANUAL DIFF REQ NO Normal [facility] Comment on above: Performed By: #### P SAFREE #### [facility] [address] [address] [address] Shabnam Rae MCH (RBC) [Entitic mass] 29.5 pg Normal 25.9-34.0 [facility] Comment on above: Performed By: #### P SAFREE #### [facility] [address] [place] [address] Dr. Shabnam Rae MCHC (RBC) [Mass/Vol] 31.8 g/dL Normal 29.9-35.2 [facility] Comment on above: Performed By: #### P SAFREE #### [facility] [address] [place] [address] Dr. Shabnam Rae MCV (RBC) [Entitic vol] 92.9 fL Normal 80.0-94.0 [facility] Comment on above: Performed By: #### P SAFREE #### [facility] [address] [place] [address] Dr. Shabnam Rae MONO # 0.4 103/ul Normal 0.3-0.8 [facility] Comment on above: Performed By: #### P SAFREE #### [facility] [address] [place] [address] Dr. Shabnam Rae Monocytes/100 WBC (Bld) 5.4 % Normal 1.7-12.0 [facility] Comment on above: Performed By: #### P SAFREE #### [facility] [address] [place] [address] Dr. Shabnam Rae NEUT # 5.2 103/ul Normal 1.4-6.5 [facility] Comment on above: Performed By: #### P SAFREE #### [facility] [address] [address] [address] Shabnam Rae Neutrophils/100 WBC (Bld) 78.2 % Critically high 43.0-75.0 [facility] Comment on above: Performed By: #### P SAFREE #### [facility] [address] [address] [address] Shabnam Rae Platelet mean volume (Bld) [Entitic vol] 10.9 fL Normal 9.5-13.5 [facility] Comment on above: Performed By: #### P SAFREE #### [facility] [address] [address] [address] Shabnam Rae PLT 153 103/ul Normal 150-450 [facility] Comment on above: Performed By: #### P SAFREE #### [facility] [address] [address] [address] Shabnam Rae RBC 4.64 106/ul Critically low 4.70-6.10 [facility] Comment on above: Performed By: #### P SAFREE #### [facility] [address] [address] [address] Shabnam Rae WBC 6.6 103/ul Normal 4.0-11.0 [facility] Comment on above: Performed By: #### P SAFREE #### [facility] [address] [place] [address] Dr. Shabnam Rae CRPon 01-05-2022 CRP 0.9 mg/dL Normal <=1.0 [facility] Comment on above: Performed By: #### P SAFREE #### [facility] [address] [address] [address] Shabnam Rae PROF 14(COMP METB)on 022 Albumin [Mass/Vol] 3.6 g/dL Normal 3.4-5.0 [facility] Comment on above: Performed By: #### P SAFREE #### [facility] [address] [place] [address] Dr. Shabnam Rae Albumin/Globulin [Mass ratio] 1.0 {ratio} Normal [facility] Comment on above: Performed By: #### P SAFREE #### [facility] [address] [address] [address] Shabnam Rae ALP [Catalytic activity/Vol] 114 U/L Normal 46-116 [facility] Comment on above: Performed By: #### P SAFREE #### [facility] [address] [address] [address] Shabnam Rae ALT [Catalytic activity/Vol] 26 U/L Normal 16-63 [facility] Comment on above: Performed By: #### P SAFREE #### [facility] [address] [address] [address] Shabnam Rae Anion gap [Moles/Vol] 9.3 mmol/L Normal [facility] Comment on above: Performed By: #### P SAFREE #### [facility] [address] [place] [address] Dr. Shabnam Rae AST [Catalytic activity/Vol] 19 U/L Normal 15-37 [facility] Comment on above: Performed By: #### P SAFREE #### [facility] [address] [address] [address] Shabnam Rae Bilirubin [Mass/Vol] 0.5 mg/dL Normal 0.2-1.0 [facility] Comment on above: Performed By: #### P SAFREE #### [facility] [address] [place] [address] Dr. Shabnam Rae Calcium [Mass/Vol] 8.9 mg/dL Normal 8.5-10.1 [facility] Comment on above: Performed By: #### P SAFREE #### [facility] [address] [address] [address] Shabnam Rae Chloride [Moles/Vol] 106 mmol/L Normal 98-107 [facility] Comment on above: Performed By: #### P SAFREE #### [facility] [address] [address] [address] Shabnam Rae CO2 [Moles/Vol] 30.7 mmol/L Normal 21.0-32.0 [facility] Comment on above: Performed By: #### P SAFREE #### [facility] [address] [place] [address] Dr. Shabnam Rae Creatinine [Mass/Vol] 1.15 mg/dL Normal 0.70-1.30 [facility] Comment on above: Performed By: #### P SAFREE #### [facility] [address] [place] [address] Dr. Shabnam Rae EGFR-AF GABONESE >60 Normal >=60 [facility] Comment on above: Performed By: #### P SAFREE #### [facility] [address] [place] [address] Dr. Shabnam Rae EGFR-NON AF GABONESE >60 Normal >=60 [facility] Comment on above: Performed By: #### P SAFREE #### [facility] [address] [place] [address] Dr. Shabnam Rae Globulin (S) [Mass/Vol] 3.6 g/dL Normal [facility] Comment on above: Performed By: #### P SAFREE #### [facility] [address] [place] [address] Dr. Shabnam Rae Glucose [Mass/Vol] 117 mg/dL Critically high 74-106 [facility] Comment on above: Performed By: #### P SAFREE #### [facility] [address] [place] [address] Dr. Shabnam Rae Potassium [Moles/Vol] 4.0 mmol/L Normal 3.5-5.1 [facility] Comment on above: Performed By: #### P SAFREE #### [facility] [address] [place] [address] Dr. Shabnam Rae Protein [Mass/Vol] 7.2 g/dL Normal 6.1-8.2 [facility] Comment on above: Performed By: #### P SAFREE #### [facility] [address] [place] [address] Dr. Shabnam Rae Sodium [Moles/Vol] 142 mmol/L Normal 136-145 [facility] Comment on above: Performed By: #### P SAFREE #### [facility] [address] [place] [address] Dr. Shabnam Rae Urea nitrogen [Mass/Vol] 15.0 mg/dL Normal 7.0-18.0 [facility] Comment on above: Performed By: #### P SAFREE #### [facility] [address] [place] [address] Dr. Shabnam Rae Urea nitrogen/Creatinine [Mass ratio] 13.0 mg/mg Normal [facility] Comment on above: Performed By: #### P SAFREE #### [facility] [address] [address] [address] Shabnam Rae US SCROTUMon 01-05-2022 US [...] CAICEDO Date: 2022-01-05 08:48 Normal [facility] CBC AUTO DIFFon 01-04-2022 BASO # 0.1 103/ul Normal 0.0-0.1 [facility] Comment on above: Performed By: #### C BC #### [facility] [address] [place] [address] Dr. Shabnam Rae Basophils/100 WBC (Bld) 0.8 % Normal 0.2-2.0 [facility] Comment on above: Performed By: #### C BC #### [facility] [address] [place] [address] Dr. Shabnam Rae EO # 0.1 103/ul Normal 0.0-0.7 [facility] Comment on above: Performed By: #### C BC #### [facility] [address] [place] [address] Dr. Shabnam Rae Eosinophils/100 WBC (Bld) 1.5 % Normal 0.9-7.0 [facility] Comment on above: Performed By: #### C BC #### [facility] [address] [place] [address] Dr. Shabnam Rae Erythrocyte distribution width (RBC) [Ratio] 12.8 % Normal 11.0-15.0 [facility] Comment on above: Performed By: #### C BC #### [facility] [address] [place] [address] Dr. Shabnam Rae Hematocrit (Bld) [Volume fraction] 40.3 % Critically low 42.0-54.0 [facility] Comment on above: Performed By: #### C BC #### [facility] [address] [place] [address] Dr. Shabnam Rae Hemoglobin (Bld) [Mass/Vol] 13.4 g/dL Critically low 14.0-18.0 [facility] Comment on above: Performed By: #### C BC #### [facility] [address] [place] [address] Dr. Shabnam Rae IG # 0.03 10e3/ul Normal 0.00-0.03 [facility] Comment on above: Performed By: #### C BC #### [facility] [address] [place] [address] Dr. Shabnam Rae IG % 0.5 % Normal 0.0-0.5 [facility] Comment on above: Performed By: #### C BC #### [facility] [address] [place] [address] Dr. Shabnam Rae LYMPH # 1.0 103/ul Critically low 1.2-3.8 [facility] Comment on above: Performed By: #### C BC #### [facility] [address] [place] [address] Dr. Shabnam Rae Lymphocytes/100 WBC (Bld) 16.4 % Critically low 20.5-60.0 [facility] Comment on above: Performed By: #### C BC #### [facility] [address] [place] [address] Dr. Shabnam Rae MANUAL DIFF REQ NO Normal [facility] Comment on above: Performed By: #### C BC #### [facility] [address] [place] [address] Dr. Shabnam Rae MCH (RBC) [Entitic mass] 29.5 pg Normal 25.9-34.0 [facility] Comment on above: Performed By: #### C BC #### [facility] [address] [place] [address] Dr. Shabnam Rae MCHC (RBC) [Mass/Vol] 33.3 g/dL Normal 29.9-35.2 [facility] Comment on above: Performed By: #### C BC #### [facility] [address] [place] [address] Dr. Shabnam Rae MCV (RBC) [Entitic vol] 88.8 fL Normal 80.0-94.0 [facility] Comment on above: Performed By: #### C BC #### [facility] [address] [place] [address] Dr. Shabnam Rae MONO # 0.6 103/ul Normal 0.3-0.8 [facility] Comment on above: Performed By: #### C BC #### [facility] [address] [place] [address] Dr. Shabnam Rae Monocytes/100 WBC (Bld) 9.6 % Normal 1.7-12.0 [facility] Comment on above: Performed By: #### C BC #### [facility] [address] [place] [address] Dr. Shabnam Rae NEUT # 4.4 103/ul Normal 1.4-6.5 [facility] Comment on above: Performed By: #### C BC #### [facility] [address] [place] [address] Dr. Shabnam Rae Neutrophils/100 WBC (Bld) 71.2 % Normal 43.0-75.0 [facility] Comment on above: Performed By: #### C BC #### [facility] [address] [place] [address] Dr. Shabnam Rae Platelet mean volume (Bld) [Entitic vol] 10.8 fL Normal 9.5-13.5 [facility] Comment on above: Performed By: #### C BC #### [facility] [address] [place] [address] Dr. Shabnam Rae PLT 158 103/ul Normal 150-450 [facility] Comment on above: Performed By: #### C BC #### [facility] [address] [place] [address] Dr. Shabnam Rae RBC 4.54 106/ul Critically low 4.70-6.10 [facility] Comment on above: Performed By: #### C BC #### [facility] [address] [place] [address] Dr. Shabnam Rae WBC 6.2 103/ul Normal 4.0-11.0 [facility] Comment on above: Performed By: #### C BC #### [facility] [address] [place] [address] ABD/PELV W CONon [...] BERNAL Date: 2022-01-04 05:19 Normal [facility] CT PELVIS WO CONon CT PELVIS [...] BRENNANH Date: 2022-01-04 08:54 Normal [facility] CULTURE URINEon 01-04-2022 CULTURE URINE Culture Observations: No growth Normal [facility] Comment on above: Performed By: #### P [facility] #### [facility] [address] [place] [address] Dr. Shabnam Rae Covid-19 PCR ([facility])on 12-13 SARS-CoV-2 (COVID-19) RNA ELIJAH+probe Ql (Unsp spec) Not detected Normal NOT DETECTED [facility] Comment on above: Result Comment: When diagnostic testing is negative, the possibility of a false negative should be considered in the context of a patient's recent exposures and the presence of clinical signs and symptoms consistent with SARS-CoV-2. This test is not yet approved or cleared by the [place] Food and Drug Administration (FDA). This test was developed by [employer], [place], [place]. The performance characteristics of this test were validated by [facility]. The results are not intended to be used as the sole means for clinical diagnosis or patient management decisions. [facility] is authorized under Clinical Laboratory Improvement [...] for this test is supported by the [place] of Health and Human Service's declaration that [...] used). Performed By: #### C VDTB #### [facility] [address] [place] [address] Dr. Shabnam Rae ER URINE PROFILEon 2 Bilirubin Ql (U) Negative Normal NEGATIVE [facility] Comment on above: Performed By: #### P SASC #### [facility] [address] [place] [address] Dr. Shabnam Rae Clarity (U) CLEAR Normal CLEAR [facility] Comment on above: Performed By: #### P SASC #### [facility] [address] [place] [address] Dr. Shabnam Rae Color (U) YELLOW Normal YELLOW [facility] Comment on above: Performed By: #### P SASC #### [facility] [address] [place] [address] Dr. Shabnam Rae ERUAHD A micrscopic examination will be performed if indicated. Normal [facility] Comment on above: Performed By: #### P SASC #### [facility] [address] [place] [address] Dr. Shabnam Rae Glucose Ql (U) Negative Normal NEGATIVE [facility] Comment on above: Performed By: #### P SASC #### [facility] [address] [place] [address] Dr. Shabnam Rae Hemoglobin Ql (U) Negative Normal NEGATIVE [facility] Comment on above: Performed By: #### P SASC #### [facility] [address] [place] [address] Dr. Shabnam Rae Ketones Ql (U) Negative Normal NEGATIVE [facility] Comment on above: Performed By: #### P SASC #### [facility] [address] [place] [address] Dr. Shabnam Rae LEUKOCYTES Negative Normal NEGATIVE [facility] Comment on above: Performed By: #### P SASC #### [facility] [address] [address] [address] Shabnam Rae Nitrite Ql (U) Negative Normal NEGATIVE [facility] Comment on above: Performed By: #### P SASC #### [facility] [address] [place] [address] Dr. Shabnam Rae pH (U) 6.5 [pH] Normal 5-9 [facility] Comment on above: Performed By: #### P SASC #### [facility] [address] [address] [address] Shabnam Rae SPEC GRAVITY 1.010 Normal 1.005-<=1.025 [facility] Comment on above: Performed By: #### P SASC #### [facility] [address] [place] [address] Dr. Shabnam Rae UA PROTEIN Negative Normal NEGATIVE/ TRACE [facility] Comment on above: Performed By: #### P SASC #### [facility] [address] [place] [address] Dr. Shabnam Rae UR MICRO IND NOT INDICATED Normal [facility] Comment on above: Performed By: #### P SASC #### [facility] [address] [place] [address] Dr. Shabnam Rae Urobilinogen Qn (U) 0.2 {Sarai'U}/dL Normal 0.2 - 1. 0 [facility] Comment on above: Performed By: #### P SASC #### [facility] [address] [place] [address] Dr. Shabnam Rae LACTATE/LACTIC ACIDon 2021 Lactate [Moles/Vol] 1.0 mmol/L Normal 0.4-2.0 [facility] Comment on above: Performed By: #### P SASC #### [facility] [address] [place] [address] Dr. Shabnam Rae PROF CHEM 8 (BAS METB)on Anion gap [Moles/Vol] 10.0 mmol/L Normal [facility] Comment on above: Performed By: #### B MP #### [facility] [address] [address] [address] Shabnam Rae Calcium [Mass/Vol] 8.5 mg/dL Normal 8.5-10.1 [facility] Comment on above: Performed By: #### B MP #### [facility] [address] [address] [address] Shabnam Rae Chloride [Moles/Vol] 103 mmol/L Normal 98-107 [facility] Comment on above: Performed By: #### B MP #### [facility] [address] [address] [address] Shabnam Rae CO2 [Moles/Vol] 29.2 mmol/L Normal 21.0-32.0 [facility] Comment on above: Performed By: #### B MP #### [facility] [address] [address] [address] Shabnam Rae Creatinine [Mass/Vol] 1.25 mg/dL Normal 0.70-1.30 [facility] Comment on above: Performed By: #### B MP #### [facility] [address] [address] [address] Shabnam Rae EGFR-AF GABONESE >60 Normal >=60 [facility] Comment on above: Performed By: #### B MP #### [facility] [address] [address] [address] Shabnam Rae EGFR-NON AF GABONESE >60 Normal >=60 [facility] Comment on above: Performed By: #### B MP #### [facility] [address] [address] [address] Shabnam Rae Glucose [Mass/Vol] 132 mg/dL Critically high 74-106 [facility] Comment on above: Performed By: #### B MP #### [facility] [address] [address] [address] Shabnam Rae Potassium [Moles/Vol] 3.2 mmol/L Critically low 3.5-5.1 [facility] Comment on above: Performed By: #### B MP #### [facility] [address] [address] [address] Shabnam Rae Sodium [Moles/Vol] 139 mmol/L Normal 136-145 [facility] Comment on above: Performed By: #### B MP #### [facility] [address] [address] [address] Shabnam Rae Urea nitrogen [Mass/Vol] 19.0 mg/dL Critically high 7.0-18.0 [facility] Comment on above: Performed By: #### B MP #### [facility] [address] [address] [address] Shabnam Rae Urea nitrogen/Creatinine [Mass ratio] 15.2 mg/mg Normal [facility] Comment on above: Performed By: #### B MP #### [facility] [address] [address] [address] Shabnam Rae CERVICAL SPINE 2 OR 3 [facility] 07-06-2019 CERVICAL SPINE 2 OR 3 [facility] Department of Radiology [address] [place] [id number] Patient Name: MATTY GARCES : 1970 [...] findings. Electronically signed by:Bernice Hoyt. Transcribed by: [email or web address], User Resident: RADHA CHIN Electronically Signed by: BERNICE HOYT @ 07/06/2019 08:52 PM I personally read this/these film(s) with this resident Normal [facility] Comment on above: Order Comment: , STA T READ , STAT READ , , , Ordering Provider - LUCIANO VIEIRA MD , CERVICAL SPINE 2 OR 3 [facility] 04-06-2019 CERVICAL SPINE 2 OR 3 [facility] Department of Radiology [address] [place] [address] Patient Name: MATTY GARCES : [...] Exam: CERVICAL SPINE 2 OR 3 [facility] [facility] CERVICAL SPINE 2 OR 3 [facility] 04/06/2019 7:28 AM EDT SIGNS AND SYMPTOMS: [...] study. Electronically signed by:Bernice Hoyt. Transcribed by: [email or web address], User Resident: Electronically Signed by: BERNICE HOYT @ 04/06/2019 04:40 PM Normal [facility] Comment on above: Order Comment: AP/LA T, ODONTOID PLEASE DO SWIMMER'S VIEW FOLLOW UP HARDWARE AND ALIGNMENT, S/P ACDF, RECENT FALLS CERVICAL SPINE 2 OR 3 [facility] 02-17-2019 CERVICAL SPINE 2 OR 3 [facility] Department of Radiology [address] [place] [phone] Patient Name: MATTY GARCES : 1970 [...] Exam: CERVICAL SPINE 2 OR 3 [facility] CERVICAL SPINE 2 OR 3 [facility] 02/17/2019 [...] findings. Electronically signed by:Bella King. Transcribed by: [email or web address], User Resident: EMILE TINAJERO Electronically Signed by: BELLA KING @ 02/20/2019 11:53 AM I personally read this/these film(s) with this resident Normal [facility] Comment on above: Order Comment: C-SPI NE 2 OR 3 VIEW POSTOP, EVALUATION HARDWARE AN ALIGNMENT BASIC METABOLIC PANELon 05-2 Calcium [Mass/Vol] 9.2 mg/dL Normal 8.6-10.3 [facility] Comment on above: Order Comment: No: D o not add to previous draw Performed By: #### 5 0103 #### [facility] [address] [place] [address], [place] Chloride [Moles/Vol] 101 mmol/L Normal 98-107 [facility] Comment on above: Order Comment: No: D o not add to previous draw Performed By: #### 5 0103 #### [facility] [address] [place] [address], [place] CO2 [Moles/Vol] 26 mmol/L Normal 21-31 [facility] Comment on above: Order Comment: No: D o not add to previous draw Performed By: #### 5 0103 #### [facility] [address] [place] [address], [facility] Creatinine [Mass/Vol] 1.02 mg/dL Normal 0.70-1.30 [facility] Comment on above: Order Comment: No: D o not add to previous draw Performed By: #### 5 0103 #### [facility] [address] [place] [address], [facility] GFR/1.73 sq M predicted among blacks MDRD (S/P/Bld) [Vol rate/Area] mL/min/{1.73_m2} Normal >60 [facility] Comment on above: Order Comment: No: D o not add to previous draw Performed By: #### 5 0103 #### [facility] [address] [place] [address], [facility] GFR/1.73 sq M predicted among non-blacks MDRD (S/P/Bld) [Vol rate/Area] mL/min/{1.73_m2} Normal >60 [facility] Comment on above: Order Comment: No: D o not add to previous draw Performed By: #### 5 3 #### [facility] [address] [place] [address], [place] Glucose [Mass/Vol] 124 mg/dL High 70-100 [facility] Comment on above: Order Comment: No: D o not add to previous draw Performed By: #### 5 0103 #### [facility] [address] [place] [address], [place] Potassium [Moles/Vol] 3.9 mmol/L Normal 3.5-5.1 [facility] Comment on above: Order Comment: No: D o not add to previous draw Performed By: #### 5 3 #### [facility] [address] [place] [address], [facility] Sodium [Moles/Vol] 137 mmol/L Normal 136-145 [facility] Comment on above: Order Comment: No: D o not add to previous draw Performed By: #### 5 0103 #### [facility] [address] [place] [address], [facility] Urea nitrogen [Mass/Vol] 15 mg/dL Normal 7-25 [facility] Comment on above: Order Comment: No: D o not add to previous draw Performed By: #### 5 0103 #### [facility] [address] [place] [address], [facility] CBC COMPLETE BLOOD COUNTon - Erythrocyte distribution width (RBC) [Ratio] 13.9 % Normal 11.5-15.0 [facility] Comment on above: Order Comment: No: D o not add to previous draw Performed By: #### 5 0103 #### [facility] [address] [place] [address], [facility] Hematocrit (Bld) [Volume fraction] 50.0 % Normal 39.0-50.0 [facility] Comment on above: Order Comment: No: D o not add to previous draw Performed By: #### 5 0103 #### [facility] [address] [place] [address], [facility] Hemoglobin (Bld) [Mass/Vol] 16.0 g/dL Normal 13.0-17.0 [facility] Comment on above: Order Comment: No: D o not add to previous draw Performed By: #### 5 0103 #### [facility] [address] [place] [address], [facility] MCH (RBC) [Entitic mass] 27.5 pg Normal 27.0-33.0 [facility] Comment on above: Order Comment: No: D o not add to previous draw Performed By: #### 5 0103 #### [facility] [address] [place] [address], [facility] MCHC (RBC) [Mass/Vol] 32.0 g/dL Normal 32.0-35.0 [facility] Comment on above: Order Comment: No: D o not add to previous draw Performed By: #### 5 0103 #### [facility] [address] [place] [address], [facility] MCV (RBC) [Entitic vol] 85.9 fL Normal 82.0-98.0 [facility] Comment on above: Order Comment: No: D o not add to previous draw Performed By: #### 5 0103 #### [facility] [address] [facility] [place] [address], [facility] Nucleated RBC/100 WBC (Bld) [Ratio] 0 % Normal 0-0 [facility] Comment on above: Order Comment: No: D o not add to previous draw Performed By: #### 5 0103 #### [facility] [address] [facility] [place] [address], [facility] PLAT CNT 249 10*3/uL Normal 150-400 [facility] Comment on above: Order Comment: No: D o not add to previous draw Performed By: #### 5 0103 #### [facility] [address] [place] [address], [facility] RBC (Bld) [#/Vol] 5.82 10*6/uL High 4.20-5.70 [facility] Comment on above: Order Comment: No: D o not add to previous draw Performed By: #### 5 0103 #### [facility] [address] [facility] [place] [id number], [facility] WBC (Bld) [#/Vol] 15.85 10*3/uL High 4.00-10.60 [facility] Comment on above: Order Comment: No: D o not add to previous draw Performed By: #### 5 0103 #### [facility] [address] [facility] [place], [place] [address] [place] [address] Operative Reporton 9 Operative Report MR#: [id number] [facility] Pt. Name: Matty Garces Room #: [id number] Discharge Date: Birthdate: 1970 OPERATIVE REPORT DATE OF SURGERY: 01/30/2019 SURGEON: Luciano Vieira M.D. 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 POSTOPERATIVE DIAGNOSIS: Failed instrumentation at C6-7 on the right. STONE TRIMMER: ADENIKE Lugo. ANESTHESIA: Endotracheal, Hogan. PROCEDURES: Redo [...] Vieira M.D. Date Trans: 01/31/2019 02:31 A/sasha [id number] cc: Venus Mendez M.D. [address], [facility] [address] [place] [facility] CERVICAL SPINE 2 OR 3 [facility] 01-30-2019 CERVICAL SPINE 2 OR 3 [facility] Department of Radiology [address] [place] [phone] Patient Name: MATTY GARCES : 1970 [...] documentation Electronically signed by:Justus Montano. Transcribed by: [id number], User Resident: Electronically Signed by: JUSTUS MONTANO @ 01/30/2019 04:18 PM Normal [facility] Comment on above: Order Comment: C6-7 ACDF POC GLUCOSE LABon 01-30-2019 Glucose [Mass/Vol] 106 mg/dL High 70-100 [facility] Comment on above: Performed By: #### 5 0103 #### [facility] [address] *MRSA/MSSA DNA NASALon 01-23 *MRSA/MSSA DNA NASAL Clinical Report: (D ) Specimen: NASAL SWAB Collected: 01/23/2019 15:02 Status: Final Last Updated: 01/23/2019 20:14 MSSA DNA (Final) Methicillin Susceptible Staphylococcus aureus DNA Detected MRSA DNA (Final) No Methicillin Resistant Staphylococcus aureus DNA Detected Normal [facility] Comment on above: Performed By: #### 5 0103 #### [facility] [address] APTTon 01-23-2019 aPTT Coag (Bld) [Time] 35.4 s High 25.0-35.0 [facility] Comment on above: Result [...] THIS PURPOSE. Performed By: #### 5 73, 57833 #### [facility] [address] [place] [address], [facility] BASIC METABOLIC PANELon 05- Calcium [Mass/Vol] 9.5 mg/dL Normal 8.6-10.3 [facility] Comment on above: Performed By: #### 5 Al, 59598 #### [facility] [address] [place] [address], [facility] Chloride [Moles/Vol] 101 mmol/L Normal 98-107 [facility] Comment on above: Performed By: #### 5 7306, 50129 #### [facility] [address] [place] [address], [facility] CO2 [Moles/Vol] 29 mmol/L Normal 21-31 [facility] Comment on above: Performed By: #### 5 73, 14882 #### [facility] [address] [place] [address], [facility] Creatinine [Mass/Vol] 1.08 mg/dL Normal 0.70-1.30 [facility] Comment on above: Performed By: #### 5 73, 48803 #### [facility] [address] [place] [address], [facility] GFR/1.73 sq M predicted among blacks MDRD (S/P/Bld) [Vol rate/Area] mL/min/{1.73_m2} Normal >60 [facility] Comment on above: Performed By: #### 5 73, 43896 #### [facility] [address] [place] [address], [facility] GFR/1.73 sq M predicted among non-blacks MDRD (S/P/Bld) [Vol rate/Area] mL/min/{1.73_m2} Normal >60 [facility] Comment on above: Performed By: #### 5 7307, 68816 #### [facility] [address] [place] [address], [facility] Glucose [Mass/Vol] 87 mg/dL Normal 70-100 [facility] Comment on above: Performed By: #### 5 73, 62518 #### [facility] [address] [place] [address], [facility] Potassium [Moles/Vol] 4.0 mmol/L Normal 3.5-5.1 [facility] Comment on above: Performed By: #### 5 7307, 22363 #### [facility] [address] [facility] Sodium [Moles/Vol] 137 mmol/L Normal 136-145 [facility] Comment on above: Performed By: #### 5 7307, 72618 #### [facility] [address] [place] [address], [facility] Urea nitrogen [Mass/Vol] 12 mg/dL Normal 7-25 [facility] Comment on above: Performed By: #### 5 7307, 75749 #### [facility] [address] [place] [address], [facility] CBC W/DIFFon 01-23-2019 ABS BASOPHILS 0.1 10*3/uL Normal 0.0-0.2 [facility] Comment on above: Performed By: #### 5 7307, 22799 #### [facility] [address] [place] [address], [facility] ABS IMM GRANS 0.0 10*3/uL Normal 0.0-0.2 [facility] Comment on above: Performed By: #### 5 7306, 63536 #### [facility] [address] [place] [address], [facility] ABS NEUTROPHILS 5.3 10*3/uL Normal 1.6-7.6 [facility] Comment on above: Performed By: #### 5 7306, 58106 #### [facility] [address] [place] [address], [place] Basophils/100 WBC (Bld) 0.9 % Normal 0.0-1.0 [facility] Comment on above: Performed By: #### 5 7306, 57810 #### [facility] [address] [place] [address], [place] Eosinophils (Bld) [#/Vol] 0.2 10*3/uL Normal 0.0-0.5 [facility] Comment on above: Performed By: #### 5 7306, 35607 #### [facility] [address] [place] [address], [facility] Eosinophils/100 WBC (Bld) 2.3 % Normal 0.0-6.0 [facility] Comment on above: Performed By: #### 5 7306, 35047 #### [facility] [address] [place] [address], [place] Erythrocyte distribution width (RBC) [Ratio] 13.8 % Normal 11.5-15.0 [facility] Comment on above: Performed By: #### 5 7306, 39748 #### [facility] [address] [place] [address], [place] Hematocrit (Bld) [Volume fraction] 49.6 % Normal 39.0-50.0 [facility] Comment on above: Performed By: #### 5 7306, 07195 #### [facility] [address] [place] [address], [place] Hemoglobin (Bld) [Mass/Vol] 16.4 g/dL Normal 13.0-17.0 [facility] Comment on above: Performed By: #### 5 7306, 07382 #### [facility] [address] [place] [address], [facility] IMMATURE GRANS 0.5 % Normal 0.0-1.0 [facility] Comment on above: Performed By: #### 5 7306, 03683 #### [facility] [address] [place] [address], [facility] Lymphocytes (Bld) [#/Vol] 1.2 10*3/uL Normal 1.2-4.0 [facility] Comment on above: Performed By: #### 5 7306, 76090 #### [facility] [address] [place] [address], [facility] Lymphocytes/100 WBC (Bld) 16.6 % Low 20.0-45.0 [facility] Comment on above: Performed By: #### 7306, 58201 #### [facility] [address] [place] [address], [facility] MCH (RBC) [Entitic mass] 27.8 pg Normal 27.0-33.0 [facility] Comment on above: Performed By: #### 7306, 79075 #### [facility] [address] [facility] [place] [address], [facility] MCHC (RBC) [Mass/Vol] 33.1 g/dL Normal 32.0-35.0 [facility] Comment on above: Performed By: #### 5 7306, 78489 #### [facility] [address] [place] [address], [facility] MCV (RBC) [Entitic vol] 84.2 fL Normal 82.0-98.0 [facility] Comment on above: Performed By: #### 5 7306, 60460 #### [facility] [address] [place] [address], [facility] Monocytes (Bld) [#/Vol] 0.7 10*3/uL Normal 0.1-1.0 [facility] Comment on above: Performed By: #### 5 7306, 04942 #### [facility] [address] [place] [address], [place] MONOS 9.4 % Normal 5.0-12.0 [facility] Comment on above: Performed By: #### 5 7306, 74942 #### [facility] [address] [place] [address], [facility] Neutrophils/100 WBC (Bld) 70.3 % Normal 40.0-72.0 [facility] Comment on above: Performed By: #### 5 7306, 61532 #### [facility] [address] [place] [address], [facility] Nucleated RBC/100 WBC (Bld) [Ratio] 0 % Normal 0-0 [facility] Comment on above: Performed By: #### 5 Al, 03575 #### [facility] [address] [place] [address], [facility] PLAT CNT 235 10*3/uL Normal 150-400 [facility] Comment on above: Performed By: #### 5 7306, 19119 #### [facility] [address] [place] [address], [facility] RBC (Bld) [#/Vol] 5.89 10*6/uL High 4.20-5.70 [facility] Comment on above: Performed By: #### 5 7306, 90311 #### [facility] [address] [place] [address], [place] WBC (Bld) [#/Vol] 7.48 10*3/uL Normal 4.00-10.60 [facility] Comment on above: Performed By: #### 5 7306, 29044 #### [facility] [address] PROTHROMBIN TIMEon 9 INR Coag (PPP) [Relative time] 1.12 {INR} Normal 0.91-1.16 [facility] Comment on above: Result Comment: ACCC P [...] CHEST 1995;108:231S-246S. Performed By: #### 5 7307, 25249 #### [facility] [address] [facility] [facility] PT Coag (PPP) [Time] 14.4 s Normal 12.3-14.8 [facility] Comment on above: Result Comment: ALL RESULTS MUST BE INTERPRETED WITH RESPECT TO BLOOD DRAWING ARTIFACT OR DILUTION ERROR OF ANTICOAGULANT AT THE TIME OF SAMPLING. Performed By: #### 5 7307, 14108 #### [facility] [address] [place] [address], [facility] TYPE AND SCREENon 01-23-2019 ABO INTERPRETATION A Normal [facility] Comment on above: Performed By: #### 5 7307, 81036 #### [facility] [address] [place] [address], [facility] RH INTERPRETATION Positive Normal [facility] Comment on above: Performed By: #### 5 7307, [address]2275 #### [address] [address], [facility] CT 3D CERVICAL SPINE WO CONT RASTon 01-12-2019 CT 3D CERVICAL SPINE WO CONTRAST [facility] Department of Radiology [address] [place] [phone] Patient Name: MATTY GARCES : 1970 Sex: M Age: Race: White Pt. Location: Patient Status: D Ordered Date: 01/10/2019 2:15:00 PM Completed Date: 01/12/2019 10:32 AM Requesting Provider: LUCIANO VIEIRA Attending Provider: LUCIANO VIEIRA Report Copy To: VENUS MENDEZ Signs & Symptoms: M48.02 Spinal stenosis, cervical region I10 History: [place] para auth # [id number] 01/10/19-02/09/19 12398 *er Comments: Exam: CT 3D CERVICAL SPINE [...] incomplete Electronically signed by:Ten Garland. Transcribed by: [email or web address], User Resident: Electronically Signed by: TEN GARLAND @ 01/13/2019 09:18 AM Normal [facility] CERVICAL SPINE 2 OR 3 [facility] 01-05-2019 CERVICAL SPINE 2 OR 3 [facility] Department of Radiology [address] [place] [phone] Patient Name: MATTY GARCES : 1970 [...] findings. Electronically signed by:Ten Garland. Transcribed by: [email or web address], User Resident: SHELLY DELA CRUZ Electronically Signed by: TEN GARLAND @ 01/05/2019 12:37 PM I personally read this/these film(s) with this resident Normal [facility] Comment on above: Order Comment: , , = ========= , Ordering Provider - LUCIANO VIEIRA MD , CERVICAL SPINE 2 OR 3 VWSon 08-30-2018 CERVICAL SPINE 2 OR 3 VWS [facility] Department of Radiology [address] [place] [phone] Patient Name: MATTY GARCES : 1970 [...] findings. Electronically signed by:Bella King. Transcribed by: [email or web address], User Resident: RYAN HEAD Electronically Signed by: [...] Pt. Name: Matty Garces Room #: [id number] Discharge Date: Birthdate: 1970 OPERATIVE REPORT DATE OF SURGERY: 08/17/2018 SURGEON: Luciano Vieira M.D. PREOPERATIVE DIAGNOSIS: Herniated cervical disk at C6-7. POSTOPERATIVE DIAGNOSIS: Herniated cervical disk at C6-7. STONE TRIMMER: ADENIKE Larios. ANESTHESIA: Endotracheal, Braida. PROCEDURE: Anterior [...] A Luciano Vieira M.D. Date Dict: 08/17/2018/12:31 P/uLciano Vieira M.D. Date Trans: 08/17/2018 11:25 P/mmo [id number] cc: Venus Mendez M.D. [address], [place] [address] [place] [facility] CERVICAL SPINE 2 OR 3 [facility] 08-17-2018 CERVICAL SPINE 2 OR 3 [facility] Department of Radiology [address] [place] [phone] Patient Name: MATTY GARCES : 1970 [...] findings. Electronically signed by:Bernice Hoyt. Transcribed by: [email or web address], User Resident: EMILE TINAJERO Electronically Signed by: BERNICE HOYT @ 08/18/2018 01:06 PM I personally read this/these film(s) with this resident Normal [facility] Comment on above: Order Comment: C6-7 ACDF with POC GLUCOSE LABon 08-17-2018 Glucose [Mass/Vol] 113 mg/dL High 70-100 [facility] Comment on above: Performed By: #### 8 5499 #### [facility] [address] [place] [address], [facility] RBC'S 2 UNITSon 08-17-2018 CROSSMATCH INTERP 1 COMP Normal [facility] Comment on above: Performed By: #### 8 6002 #### [facility] [address] [place] [address], [place] CROSSMATCH INTERP 2 COMP Normal The [facility] Comment on above: Performed By: #### 8 6002 #### [facility] [address] [place] [address], [facility] PRODUCT CODE 1 E0336 Normal [facility] Comment on above: Performed By: #### 8 6002 #### [facility] [address] [place] [address], [facility] PRODUCT CODE 2 E0336 Normal [facility] Comment on above: Performed By: #### 8 6002 #### [facility] [address] [place] [address], [facility] PRODUCT STATUS 1 RE Normal [facility] Comment on above: Result Comment: Resu lt changed by IF on 08/20/2018 07:48. The previous value was XM. Performed By: #### 8 6002 #### [facility] [address] [place] [address], [facility] PRODUCT STATUS 2 RE Normal [facility] Comment on above: Result Comment: Resu lt changed by IF on 08/20/2018 07:48. The previous value was XM. Performed By: #### 8 6002 #### [facility] [address] [place] [address], [place] UNIT ABO 1 A Normal [facility] Comment on above: Performed By: #### 8 6002 #### [facility] [address] [place] [address], [place] UNIT ABO 2 A Normal [facility] Comment on above: Performed By: #### 8 6002 #### [facility] [address] [place] [address], [place] UNIT ID 1 [id number] Normal [facility] Comment on above: Performed By: #### 8 6002 #### [facility] [address] UNIT ID 2 [id number] Normal [facility] Comment on above: Performed By: #### 8 6002 #### [facility] [address] [facility] [address] UNIT RH 1 Positive Normal [facility] Comment on above: Performed By: #### 8 6002 #### [facility] [address] [facility] [address] UNIT RH 2 Positive Normal [facility] Comment on above: Performed By: #### 8 6002 #### [facility] [address] [facility] [address] *MRSA/MSSA CULTUREon 018 *MRSA/MSSA CULTURE Clinical Report: (D) Specimen: NASAL SWAB Collected: 08/02/2018 12:37 Status: Final Last Updated: 08/03/2018 14:26 ISO (Final) No Methicillin Resistant Staphylococcus aureus Isolated (MRSA) ISO (Final) Methicillin Sensitive Staphylococcus aureus (MSSA) Isolated Normal [facility] Comment on above: Performed By: #### 3 1302 #### [facility] [address] [facility] [address] APTTon 08-02-2018 aPTT Coag (Bld) [Time] 31.2 s Normal 25.0-35.0 [facility] Comment on above: Result Comment: ALL RESULTS [...] THIS PURPOSE. Performed By: #### 5 7307, 80200 #### [facility] [address] BASIC METABOLIC PANELon 07-15 Calcium [Mass/Vol] 9.4 mg/dL Normal 8.6-10.3 [facility] Comment on above: Performed By: #### 0 0071 #### [facility] [address] [place] [address], [place] Chloride [Moles/Vol] 103 mmol/L Normal 98-107 [facility] Comment on above: Performed By: #### 0 0071 #### [facility] [address] [place] [address], [place] CO2 [Moles/Vol] 29 mmol/L Normal 21-31 [facility] Comment on above: Performed By: #### 0 0071 #### [facility] [address] [place] [address], [place] Creatinine [Mass/Vol] 1.06 mg/dL Normal 0.70-1.30 [facility] Comment on above: Performed By: #### 0 0071 #### [facility] [address] [place] [address], [place] GFR/1.73 sq M predicted among blacks MDRD (S/P/Bld) [Vol rate/Area] mL/min/{1.73_m2} Normal >60 [facility] Comment on above: Performed By: #### 0 0071 #### [facility] [address] [place] [address], [place] GFR/1.73 sq M predicted among non-blacks MDRD (S/P/Bld) [Vol rate/Area] mL/min/{1.73_m2} Normal >60 [facility] Comment on above: Performed By: #### 0 0071 #### [facility] [address] [place] [address], [place] Glucose [Mass/Vol] 84 mg/dL Normal 70-100 [facility] Comment on above: Performed By: #### 0 0071 #### [facility] [address] [place] [address], [place] Potassium [Moles/Vol] 4.0 mmol/L Normal 3.5-5.1 [facility] Comment on above: Performed By: #### 0 0071 #### [facility] [address] [place] [address], [facility] [facility] Sodium [Moles/Vol] 140 mmol/L Normal 136-145 The [facility] Comment on above: Performed By: #### 0 0071 #### [facility] [address] Urea nitrogen [Mass/Vol] 20 mg/dL Normal 7-25 [facility] Comment on above: Performed By: #### 0 1 #### [facility] [address] CBC W/DIFFon 08-02-2018 ABS BASOPHILS 0.1 10*3/uL Normal 0.0-0.2 [facility] Comment on above: Performed By: #### 5 3 #### [facility] [address] ABS IMM GRANS 0.1 10*3/uL Normal 0.0-0.2 [facility] Comment on above: Performed By: #### 5 102 #### [facility] [address] ABS NEUTROPHILS 4.2 10*3/uL Normal 1.6-7.6 [facility] Comment on above: Performed By: #### 5 102 #### [facility] [address] [place] [address], [facility] Basophils/100 WBC (Bld) 1.3 % High 0.0-1.0 [facility] Comment on above: Performed By: #### 5 102 #### [facility] [address] [place] [address], [facility] Eosinophils (Bld) [#/Vol] 0.1 10*3/uL Normal 0.0-0.5 [facility] Comment on above: Performed By: #### 5 0103 #### [facility] [address] [facility] [place] [address], [facility] Eosinophils/100 WBC (Bld) 2.0 % Normal 0.0-6.0 [facility] Comment on above: Performed By: #### 5 0103 #### [facility] [address] [facility] [place] [address], [facility] Erythrocyte distribution width (RBC) [Ratio] 13.6 % Normal 11.5-15.0 [facility] Comment on above: Performed By: #### 5 0103 #### [facility] [address] [facility] [place] [address], [facility] Hematocrit (Bld) [Volume fraction] 44.3 % Normal 39.0-50.0 [facility] Comment on above: Performed By: #### 5 0103 #### [facility] [address] [facility] [place] [address], [facility] Hemoglobin (Bld) [Mass/Vol] 15.1 g/dL Normal 13.0-17.0 [facility] Comment on above: Performed By: #### 5 0103 #### [facility] [address] [facility] [place] [address], [facility] IMMATURE GRANS 1.1 % High 0.0-1.0 [facility] Comment on above: Performed By: #### 5 0103 #### [facility] [address] [facility] [place] [address], [facility] Lymphocytes (Bld) [#/Vol] 1.2 10*3/uL Normal 1.2-4.0 [facility] Comment on above: Performed By: #### 5 3 #### [facility] [address] [place] [id number], [facility] Lymphocytes/100 WBC (Bld) 18.3 % Low 20.0-45.0 [facility] Comment on above: Performed By: #### 5 0103 #### [facility] [address] [facility] [address], [facility] MCH (RBC) [Entitic mass] 29.0 pg Normal 27.0-33.0 [facility] Comment on above: Performed By: #### 5 0103 #### [facility] [address] [facility] [place] [address], [facility] MCHC (RBC) [Mass/Vol] 34.1 g/dL Normal 32.0-35.0 [facility] Comment on above: Performed By: #### 5 3 #### [facility] [address] [place] [address], [facility] MCV (RBC) [Entitic vol] 85.0 fL Normal 82.0-98.0 [facility] Comment on above: Performed By: #### 5 0103 #### [facility] [address] [place] [address], [facility] Monocytes (Bld) [#/Vol] 0.7 10*3/uL Normal 0.1-1.0 [facility] Comment on above: Performed By: #### 5 3 #### [facility] [address] [facility] [place] [address], [facility] MONOS 11.1 % Normal 5.0-12.0 [facility] Comment on above: Performed By: #### 5 3 #### [facility] [address] [facility] [address] Neutrophils/100 WBC (Bld) 66.2 % Normal 40.0-72.0 [facility] Comment on above: Performed By: #### 5 3 #### [facility] [address] [place] [address], [facility] Nucleated RBC/100 WBC (Bld) [Ratio] 0 % Normal 0-0 [facility] Comment on above: Performed By: #### 5 0103 #### [facility] [address] PLAT CNT 179 10*3/uL Normal 150-400 The [facility] Comment on above: Performed By: #### 5 0103 #### [facility] [address] RBC (Bld) [#/Vol] 5.21 10*6/uL Normal 4.20-5.70 The [facility] Comment on above: Performed By: #### 5 0103 #### [facility] [address] [place] [address], [facility] WBC (Bld) [#/Vol] 6.39 10*3/uL Normal 4.00-10.60 The [facility] Comment on above: Performed By: #### 5 0103 #### [address] CERVICAL SPINE 4 OR 5 VIEWSo n 08-02-2018 CERVICAL SPINE 4 OR 5 VIEWS [facility] Department of Radiology [address] [place] [id number] Patient Name: MATTY GARCES : 1970 Sex: M Age: Race: White Pt. Location: Patient Status: D Ordered Date: 08/02/2018 1:05:00 PM Completed Date: 08/02/2018 01:29 PM Requesting Provider: LUCIANO VIEIRA Attending Provider: LUCIANO VIEIRA Report Copy To: VENUS MENDEZ Signs & Symptoms: Z01.89 Encounter for other specified special examinations I10 History: [place] Comments: , PREOP XRAY AP/LAT \EANDE\ FLEX/EX [...] findings. Electronically signed by:Bella King. Transcribed by: [email or web address], User Resident: EMILE TINAJERO Electronically Signed by: [...] (PPP) [Relative time] 1.15 {INR} Normal 0.91-1.16 [facility] Comment on above: Result Comment: ACCC P [...] CHEST 1995;108:[id number]. Performed By: #### 5 7307, [id number] #### [facility] [email or web address] [address] PT Coag (PPP) [Time] 14.7 s Normal 12.3-14.8 [facility] Comment on above: Result Comment: ALL RESULTS MUST BE INTERPRETED WITH RESPECT TO BLOOD DRAWING ARTIFACT OR DILUTION ERROR OF ANTICOAGULANT AT THE TIME OF SAMPLING. Performed By: #### 5 7307, [id number] #### [facility] [email or web address] [address] TYPE AND SCREENon 08-02-2018 ABO INTERPRETATION A Normal [facility] Comment on above: Order Comment: 2 uni ts 2 units 2 units 2 units 2 units Performed By: #### 6 2586 #### [facility] 3000 [place] [address], [facility] RH INTERPRETATION Positive Normal [facility] Comment on above: Order Comment: 2 uni ts 2 units 2 units 2 units 2 units Performed By: #### 6 2586 #### [facility] [address] [place] [address], [facility] URINALYSIS REFLEXon 08-02-20 Appearance (U) CLEAR Normal CLEAR [facility] Comment on above: Performed By: #### 3 0965 #### [facility] [address] [place] [address], [facility] Bilirubin [Mass/Vol] Negative Normal NEGATIVE [facility] Comment on above: Performed By: #### 3 0965 #### [facility] [address] [place] [address], [facility] BLOOD Negative Normal NEGATIVE [facility] Comment on above: Performed By: #### 3 0965 #### [facility] [address] [place] [address], [facility] Color (U) YELLOW Normal YELLOW [facility] Comment on above: Performed By: #### 3 0965 #### [facility] [address] [facility] [place] [address], [facility] Glucose [Mass/Vol] 150 mg/dL Abnormal NEGATIVE [facility] Comment on above: Performed By: #### 3 0965 #### [facility] [address] [facility] [place] [address], [facility] KETONE Negative Normal NEGATIVE [facility] Comment on above: Performed By: #### 3 0965 #### [facility] [address] [facility] [place] [address], [facility] [place] Negative Normal NEGATIVE [facility] Comment on above: Performed By: #### 3 0965 #### [facility] [address] [place] [address], [place] MICRO NOT DONE negative chemical reactions unless requested in original order Normal [facility] Comment on above: Performed By: #### 3 0965 #### [facility] [address] [facility] [address], [facility] Nitrite Ql (U) Negative Normal NEGATIVE [facility] Comment on above: Performed By: #### 3 0965 #### [facility] [address] [place] [address], [facility] pH (Bld) 5.0 Normal 5.0-8.0 [facility] Comment on above: Performed By: #### 3 0965 #### [facility] [address] [place] [address], [facility] Protein (U) [Mass/Vol] Negative Normal NEGATIVE [facility] Comment on above: Performed By: #### 3 0965 #### [facility] [address] SPEC GRAV 1.024 High 1.015-1.020 [facility] Comment on above: Performed By: #### 3 0965 #### [facility] [address] Vital Signs Date Time Vital Sign Value Performing Clinician Facility 07-03-2024 14:45-0400 Body height 188 cm Rubné Geiger MD Work Phone: [facility] 07-03-2024 14:45-0400 Body mass index (BMI) [Ratio] 37.62 kg/m2 Rubén Geiger MD Work Phone: [facility] 07-03-2024 14:45-0400 Body weight 132.9 kg Rubén Geiger MD Work Phone: [facility] 02-25-2022 10:30-0400 Blood Pressure Location Viola Grullon [facility] 02-25-2022 10:30-0400 Diastolic blood pressure 107 mm[Hg] Viola Lue [facility] 02-25-2022 10:30-0400 Heart rate 74 /min Viola Lue [facility] 02-25-2022 10:30-0400 Respiratory rate 16 /min Viola Lue [facility] 02-25-2022 10:30-0400 Systolic blood pressure 157 mm[Hg] Viola Lue [facility] Encounters Encounter Date Encounter Type Care Provider Facility Start: 07-04-2024 End: 07-05-2024 Telephone encounter Rubén Geiger MD Work Phone: [facility] Start: 07-03-2024 End: 07-03-2024 Office outpatient visit 25 minutes Rubén Geiger MD Work Phone: [facility] Comment on above: Excessive daytime sl eepiness (Primary Dx); Obstructive sleep apnea; Primary insomnia; Cubital tunnel syndrome on right Start: 07-03-2024 End: 07-03-2024 ambulatory RUBÉN GEIGER Not Available Start: 07-03-2024 End: 07-03-2024 Bamboo flowsheet Rubén Geiger MD Work Phone: [facility] Start: 07-03-2024 End: 07-03-2024 Bamboo flowsheet Rubén Geiger MD Work Phone: [facility] Start: 03-27-2024 End: 03-27-2024 ambulatory RUBÉN GEIGER Not Available Start: 01-10-2024 End: 01-10-2024 ambulatory VALENCIA DE LEÓN Not Available Start: 01-03-2024 End: 01-03-2024 [facility] Work Phone: Start: 01-03-2024 End: 01-03-2024 Departed Referred DPM Trey Vallejo Work Phone: [facility] Start: 12-29-2023 End: 12-29-2023 ambulatory RUBÉN GEIGER Not Available Start: 11-29-2023 End: 11-30-2023 ambulatory Andrius Vytautas Giedraitis Facility:[facility] Start: 10-18-2023 End: 10-19-2023 ambulatory Andrius Juanytautas Christianneitis Facility:[facility] Start: 09-27-2023 End: 09-27-2023 ambulatory RUBÉN GEIGER Not Available Start: 08-30-2023 End: 08-31-2023 ambulatory Andrius Vytautas Christianneitis Facility:[facility] Start: 07-12-2023 End: 07-13-2023 ambulatory Andrius Vytautas Gieditis Facility:[facility] Start: 06-14-2023 End: 06-15-2023 ambulatory Andrius Vytautas Christianneitis Facility:[facility] Start: 12-06-2022 End: 12-06-[address] VENUS MENDEZ . Facility: Start: 12-05-2022 Encounter for genera l adult medical examination without abnormal findings DR VENUS MENDEZ . [facility] Start: 12-01-2022 End: 12-02-[address] [...] procedure Viola WhittMarilee Grullon [facility] Start: 01-04-2022 End: 01-05-[address] VENUS MENDEZ . Facility: Start: 01-30-2019 End: 02-01-2019 Evaluation and management of inpatient PROVIDER UNKNOWN [facility] Start: 08-17-2018 End: 08-18-2018 Patient encounter procedure PROVIDER UNKNOWN Facility:[facility] Procedures Date Procedure Procedure Detail Performing Clinician Start: 12-01-[address] FRANKLIN MENDEZ . Comment on above: Performed By: #### [facility] #### [facility] [address] [place] [address] Dr. Shabnam Rae Start: 01-30-2019 FUSION CERV JT W INT BD FUS DEV, ANT APPR A COL, OPEN [facility] Start: 01-30-2019 REMOVAL OF INT FIX F ROM CERVCAL VERTEBRA, OPEN APPROACH [facility] Start: 01-23-2019 Antibody screen PROVIDE R UNKNOWN Comment on above: Performed By: #### 5 7307, [id number] #### [facility] [address] Start: 08-17-2018 ANESTH SPINE CORD SURGERY [...] Performed By: #### 6 2586 #### [facility] [address] Start: 02-08-1998 H/O: vasectomy History of vasectomy Rubén Geiger MD Work Phone: Colonoscopy Viola Grullon Hemorrhoids (disorder) Viola Grullon Hernia of abdominal cavity (disorder) Viola Grullon Tonsillectomy Vioal Grullon Plan of Treatment Date Care Activity Detail Author Start: 10-04-2024 End: 10-04-2024 Patient encounter procedure 10/04/2024 2:20 PM EST Office Visit [facility] [address] [address] Rubné Geiger MD [address] [facility] [address] [id number] [facility] Start: 07-03-2024 End: 07-03-2024 Patient encounter procedure 07/03/2024 2:40 PM EDT Office Visit [facility] [address] [address] Rubén Geiger MD [address] [facility] [address] [address] Arrived [facility] Comment on above: Arrived Start: 05-14-2024 Influenza vaccination Influenza Vacc ine (#1) [facility] Start: 1970 Screening for malign ant neoplasm of colon [facility] Immunizations Immunization Date Immunization Notes Care Provider Fa cili 07-06-2023 influenza virus vacc ine, unspecified formulation Rubén Geiger MD Work Phone: [facility] Healthcare Payers Date Payer Category Payer Self-pay [id number] 2022 Medicaid [facility] [id number] 2022 Medicaid [id number] 2022 Unknown 1970 Unknown [id number] 2.16.840.1.556632.3.579.2.647 1970 Unknown [id number] 2.16.840.1.051639.3.579.2.647 1970 Unknown [id number] 2.16.840.1.225255.3.579.2.593 1970 Unknown [id number] 2.16.840.1.068957.3.579.2.593 1970 Unknown [id number] 2.16.840.1.428137.3.579.2.593 1970 Unknown [id number] 2.16.840.1.633558.3.579.2.593 1970 Unknown [id number] 2.16.840.1.165362.3.579.2.593 1970 Unknown [id number] 2.16.840.1.606454.3.579.2.593 1970 Unknown [id number] 2.16.840.1.164514.3.579.2.196 1970 Unknown [id number] 2.16.840.1.293314.3.579.2.196 1970 Unknown [id number] 2.16.840.1.655200.3.579.2.196 1970 Unknown [id number] 2.16.840.1.301293.3.579.2.196 1970 Unknown [id number] 2.16.840.1.281352.3.579.2.196 1970 Unknown [id number] 2.16.840.1.848538.3.579.2.9 1970 Unknown [id number] 2.16.840.1.686827.3.579.2.9 1970 Unknown [id number] 2.16.840.1.894198.3.579.2.1258 1970 Unknown [id number] 2.16.840.1.980625.3.579.2.1258 1970 Unknown [id number] 2.16.840.1.678597.3.579.2.1258 1970 Unknown [id number] 2.16.840.1.308819.3.579.2.9 1959 Unknown [id number] Unknown [id number] Unknown [id number] 2.16.840.1.955608.3.579.2.531 Social History Date Type Detail Facility Tobacco smoking status No Smokin g Status Entered [facility] Rachio Start: 03-27-2024 End: 07-03-2024 Sex Assigned At Male [facility] Rachio Start: 05-15-2018 Tobacco smoking stat [facility] Ex-smoker (finding) [facility] Start: 1970 Sex Assigned At Male [facility] Start: 03-11-2023 [facility] Start: 03-11-2023 Tobacco use and exposure Smokeless tobacco non-user [facility] Start: 03-27-2024 End: 07-03-2024 Alcoholic beverage intake Ex-drinker (finding) [facility] Start: 03-27-2024 End: 07-03-2024 History of Social function [facility] Start: 1970 Sex assigned at Not on file [facility] Functional Status Date Assessment Result Facility 02-25-2022 Functional Status N/A [facility] Clinical Notes 02-25-2022 to 07-04-2024 Telephone Encounter [...] help boost energy in the morning. [facility] [employer] in [place]. [facility] 07-04-2024 Miscellaneous Notes left message regarding prescriptions earlier today and not being at pharmacy. I did call back and spoke to advising they were sent this afternoon. had mentioned Dr. Geiger was also going to start a Vitamin B to help boost energy in the morning. [facility] in [place]. documented in this encounter [facility] 07-03-2024 History of Presen t illness Narrative [...] 1 mg, Oral, 2 times daily HYDROcodone-acetaminophen (Dryden) 5-325 MG tablet hydrOXYzine pamoate (Vistaril) 25 [...] reflexes: Alycia's absent. Ankle clonus absent. Coordination Buibjz-et-mvmm, rapid alternating movements and aklc-fm-qqct normal bilaterally without dysmetria. Gait Normal casual, [...] up 3 months. documented in this encounter [facility] 06-09-2023 Note [facility] Continue GDMT- Diuretic therapy Monitor daily weights, I&O, fluid restriction 1.5-2L/day, renal function and electrolytes- [facility] 03-26-2022 Note PROCEDURE: XR FOOT L [...] authenticated by: ALVINA CAICEDO Date: 2022-03-26 10:47 [facility] 02-25-2022 Hospital Discharg e instructions Patient [...] Watch the hydrocele for any changes. Take kecg-trh-ztwbzqp and prescription medicines only as told by [...] 02/17/2011 Document Revised: 09/10/2018 Document Reviewed: 09/10/2018 babberly Patient Education 2020 [employer]. Follow Up Care 01/28/2022 10:36:35 With:Mitchel DELGADO, [place] Gregorio, URO Address: When: Unknown [facility] Evaluation + Plan note No data available for this section [facility] Evaluation note No assessment inform ation available [facility] Work Phone: Evaluation note Diagnosis Excessive daytime sleepiness- Primary Obstructive sleep apnea Obstructive sleep apnea (adult) (pediatric) Primary insomnia Persistent disorder of initiating or maintaining sleep Cubital tunnel syndrome on right [facility] Diagnosis Excessive daytime sleepiness- Primary [facility] this [facility] No data available for this section [facility] Summary Purpose Family History No Family History Records FoundNo Family History Records FoundNo Family History Records FoundNo Family History Records FoundNo Family History Records FoundNo Family History Records FoundNo Family History Records Found Advance Directives Advance Directive Response Recorded Date/ Time Advance Directives No May 12:42pm Hospital Course Note MR#: [id number] [facility] Pt. Name: Matty Garces Admitted: [...] section and content) DATE CREATED AUTHOR 07/19/2019 [facility] DATE CREATED AUTHOR AUTHOR'S ORGANIZ ATION 02/27/2022 [facility] DATE CREATED AUTHOR AUTHOR'S ORGANIZ ATION 12/08/2022 [facility] DATE CREATED AUTHOR AUTHOR'S ORGANIZ ATION 06/17/2023 [facility] DATE CREATED AUTHOR AUTHOR'S ORGANIZ ATION 12/03/2023 [facility] DATE CREATED AUTHOR AUTHOR'S ORGANIZ ATION 03/28/2024 [facility] DATE CREATED AUTHOR AUTHOR'S ORGANIZ ATION 07/05/2024 [facility] EPIC Care Team (unrecognized sect ion and content) Team Status: Inactive Member Role Status Dates Trey Vallejo DPM MS Attending Provider Active Start: January 03, 2024 End: January 03, 2024 [employer] Relationship Specialty Start Date End Date Venus Mendez MD [address] [place] [address] PCP - General Family Medicine 01/10/24 [employer]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 [employer] [facility]. provides no warranty or guarantee of the accuracy or completeness of information in this document.
== END 2024-08-31 11:21 | disposition home or self-care (01) ==
LOC: WC 11:21
PROVIDERS: PCP Family Medicine; Visit Provider Physician Assistant
DX: E11.621 Type 2 diabetes mellitus with foot ulcer (principal); L97.522 Non-pressure chronic ulcer of other part of left foot with fat layer exposed
CPT/HCPCS: 29445

== ENCOUNTER 2024-09-08 10:45 | Outpatient (OUT) | payer MEDICAID, SELFPAY ==
--- OUTSIDE RECORDS SUMMARY | 2024-09-08 11:04 | XMS_ITS | CCD ---
Author Organization [facility] Care Team Providers Care Public Relations Consultant Name Role Phone UNKNOWN, PROVIDER Admitting Unavailable UNKNOWN, PROVIDER Attending Unavailable VENUS MENDEZ Referring Unavailable VENUS MENDEZ Primary Care Unavailable OR Procedure Practitioner Unavailab le UNKNOWN, PROVIDER Surgeon Unavailable OR Procedure Practitioner Unavailab le SANDRA BILL Surgeon Unavailable UNKNOWN, PROVIDER Admitting Unavailable UNKNOWN, PROVIDER Attending Unavailable VENUS MENDEZ Referring Unavailable VENUS MENDEZ Primary Care Unavailable OR Procedure Practitioner Unavailab le UNKNOWN, PROVIDER Surgeon Unavailable Venus Mendez Primary Care Physician [phone] DONOVAN Admitting Unavailable HOY [...] Unavailable Gishruthi DELGADO, Andrius Berkowitz Attending Unavailable Quynh DELGADO, Andrius Woo Attending Unavailable Gishruthi DELGADO, Andrius Juanytautprasanna Attending Unavailable Quynh DELGADO, Andrius Berkowitz Attending Unavailable CHINO Vallejo Attending Provider Trey Vallejo Attending Unavailable Trey Vallejo Admitting Unavailable Venus Mendez MD Primary Care Provider [phone] RUBÉN GEIGER Attending Unavailable RUBÉN GEIGER Attending Unavailable VALENCIA DE LEÓN Attending Unavailable VALENCIA DE LEÓN Referring Unavailable RUBÉN GEIGER Attending Unavailable RUBÉN GEIGER Attending Unavailable Allergies Allergy Classification Reported Allergen(s) Allergy Type Date of Onset Reaction(s) Facility (1 source) Aspartame Drug Allergy 08-17-20 18 [facility]ository (1 source) avoid; Translations: [Unknown] Propensity to adverse reactions (disorder) 08-17-20 18 [facility] (1 source) vitamin B12; Translations: [cyanocobalamin] Drug Allergy Unknown (qualifier value) [facility] (1 source) Acetaminophen / HYDROcodone Drug Allergy [facility] (1 source) Corticosteroids Drug allergy (disorder) [facility] (1 source) fentaNYL Drug Allergy [facility] (1 source) Misc-Food; Translations: [Misc-Food] Food allergy (disorder) [facility] (1 source) Corticosteroids Drug allergy (disorder) 05-14-20 18 [facility] Repository (5 sources) fentaNYL Drug Allergy 07-08-20 Unknown [facility] (5 sources) HYDROcodone Drug Allergy 07-08-20 21 Unknown [facility] (5 sources) Morphine And Codeine Drug Allergy 07-08-20 21 Unknown [facility] (5 sources) Other Propensity to adverse reactions 07-08-20 21 [facility] Medications Current Medications Medication Drug Class(es) Dates Sig (Normalized) Sig (Original) acetaminophen 325 mg / HYDROcodone bitartrate 5 mg oral tablet (5 sources) Opioid Agonist Start: 03-20-2024 HYDROcodone-acet aminophen (Axtell) 5-325 MG tablet 03/20/2024 Active amantadine hydrochloride 100 mg oral tablet (5 sources) Influenza A M2 Protein Inhibitor Start: 04-10-2024 End: 04-10-2025 take 1 tablet by mouth in the morning amantadine (Symmetrel) 100 MG tablet Indications: Excessive daytime sleepiness , Primary insomnia Take 1 tablet (100 mg) by mouth in the morning and at noon 180 tablet 3 04/10/2024 04/10/2025 Active aspirin 81 mg delayed release oral tablet (6 sources) Platelet Aggregation Inhibitor, Nonsteroidal Anti-inflammatory Drug Start: 05-14-2018 take 81 mg by mouth once daily Aspirin Active 81 MG PO Daily May 14, 2018 12:00am ASPIRIN 81 MG ch ewable tablet Chew 81 mg in the morning. Active B-D 3CC LUER-SAYRA SYR 23GX1 23G X 1 3 ML misc (5 sources) Start: 05-18-2023 B-D 3CC LUER-L OK SYR 23GX1 23G X 1 3 ML misc USE 1 SYRINGE INTRAMUSCULARLY ONCE A WEEK 05/18/2023 Active Biotin (7 sources) Start: 02-26-2022 BIOTIN BIOTIN Start Date: 02/26/22 Status: Ordered Start: 05-14-2018 take 10 mg by mouth once daily Biotin Active 10 MG PO Daily May 14, 2018 12:00am carvedilol 25 mg oral tablet (7 sources) alpha-Adrenergic Jorge L, beta-Adrenergic Jorge L Start: 02-26-2022 carvedilol 25 mg Tab Refills(s) 0 Start Date: 02/26/22 Status: Ordered Start: 05-14-2018 take 12.5 mg by mout h twice daily Carvedilol Active 12.5 MG PO Twice daily May 14, 2018 12:00am celecoxib 100 mg oral capsule (5 sources) Nonsteroidal Anti-inflammatory Drug CeleBREX 100 MG capsule 1 (one) time each day at the same time Active cholecalciferol 0.125 mg oral capsule (5 sources) Vitamin D Start: 2023 cholecalciferol (Vitamin D-3) 125 MCG (5000 UT) capsule 03/15/2024 Active citalopram 20 mg oral tablet (5 sources) Serotonin Reuptake Inhibitor Start: 2022 CeleXA [...] 2018 12:00am doxazosin 8 mg oral tablet (6 sources) alpha-Adrenergic Jorge L Start: 02-26-2022 doxazosin 8 mg oral tablet Refills(s) 0 Start Date: 02/26/22 Status: Ordered doxepin hydrochloride 10 mg oral capsule (7 sources) Tricyclic Antidepressant Start: 02-26-2022 doxepin 10 mg Cap Refills(s) 0 Start Date: 02/26/22 Status: Ordered DULoxetine 60 mg delayed release oral capsule (5 sources) Serotonin and Norepinephrine Reuptake Inhibitor take 1 capsule by mouth in the morning DULoxetine (Cymbalta) [address] capsule Take 60 mg by mouth in the morning and 60 mg in the evening. Active escitalopram 20 mg oral tablet (5 sources) Serotonin Reuptake Inhibitor take 1 tablet by mouth in the morning escitalopram (Lexapro) 20 MG tablet Take 20 mg by mouth in the morning. Active furosemide 20 mg oral tablet (5 sources) Loop Diuretic take 1 tablet by mouth in the morning furosemide (Lasix) 20 MG tablet Take 20 mg by mouth in the morning. Active gabapentin 600 mg oral tablet (7 sources) Anti-epileptic Agent Start: 05-14-2018 gabapentin 600 mg Tab Refills(s) 0 Start Date: 02/26/22 Status: Ordered glycopyrrolate 1 mg oral tablet (6 sources) Start: 01-22-2023 take 1 tablet by mouth in the morning glycopyrrolate (Robinul) 1 MG tablet Take 1 mg by mouth in the morning and 1 mg before bedtime. 01/22/2023 Active Start: 02-26-2022 glycopyrrolate 1 mg oral tablet Refills(s) 0 Start Date: 02/26/22 Status: Ordered hydrOXYzine pamoate 25 mg oral capsule (5 sources) Antihistamine Start: 05-11-2024 take 1 capsule [...] 12:00am meclizine hydrochloride 25 mg chewable tablet (5 sources) Antiemetic Meclizine HCl 25 MG chewable tablet Chew 25 mg 1 (one) time each day at the same time. Active melatonin 10 mg oral capsule (7 sources) Start: 07-14-2023 End: 07-04-2025 take 1 capsule by mouth at bedtime Melatonin 10 MG capsule Indications: Primary insomnia Take 10 mg by mouth at bedtime 90 capsule 3 07/04/2024 07/04/2025 Active modafinil 200 mg oral tablet (8 sources) Sympathomimetic-lik e Agent Start: 04-10-2024 End: [...] Multiple Vitamins-Minerals (Multi For Him 50+) tablet (5 sources) Multiple Vitamins-Minerals (Multi For Him 50+) tablet as directed Orally Active omeprazole 40 mg delayed release oral capsule (1 source) Proton Pump Inhibitor Start: take 40 mg by mouth twice daily Omeprazole Active 40 MG PO Twice daily May 14, 2018 12:00am ondansetron 4 mg disintegrating oral tablet (11 sources) Serotonin-3 Receptor Antagonist Start: ondansetron ODT (Zofran-ODT) 4 MG disintegrating tablet 03/15/2024 Active Start: 05-14-2018 Ondansetron Ac tive 4 MG PO every 6 to 8 hours May 14, 2018 12:00am ondansetron (Zof ran) 4 MG tablet Take 4 mg by mouth if needed. Active OXcarbazepine 300 mg oral tablet (5 sources) Anti-epileptic Agent take 1 tablet by mouth at bedtime OXcarbazepine (Trileptal) 300 MG tablet Take 300 mg by mouth at bedtime. Active pantoprazole 40 mg delayed release oral tablet (6 sources) Proton Pump Inhibitor Start: Pantoprazole [address] Tab Refills(s) 0 Start Date: 02/26/22 Status: Ordered potassium chloride 10 meq extended release oral tablet (5 sources) Start: take 1 tablet by mouth at mealtime potassium chloride CR (Klor-Con) 10 MEQ ER tablet Take 10 mEq by mouth in the morning. Take with food. . 02/22/2023 Active sennosides, half-way 8.6 mg oral tablet (5 sources) Start: senna (Senokot) 8.6 MG tablet 03/15/2024 Active simvastatin 20 mg oral tablet (7 sources) HMG-CoA Reductase Inhibitor Start: simvastatin 20 mg Tab Refills(s) 0 Start Date: 02/26/22 Status: Ordered SUMAtriptan 100 mg oral tablet (6 sources) Serotonin-1b and Serotonin-1d Receptor Agonist Start: Sumatriptan Succinate Active 100 MG PO EVERY 2-4 HOURS May 14, 2018 12:00am take 1 tablet by mouth once ALAINA triptan (Imitrex) 100 MG tablet Take 100 mg by mouth 1 (one) time if needed. Active 1 ml testosterone cypionate 200 mg/ml injection (5 sources) Androgen testosterone cyp ionate (Depo-Testosterone) 200 [...] 07/05/2025 Active tiZANidine 4 mg oral capsule (6 sources) Central alpha-2 Adrenergic Agonist Start: 018 take 4 mg by mouth at bedtime Tizanidine Active 4 MG PO Bedtime May 14, 2018 12:00am take 1 tablet by mouth at bedtim e tiZANidine (Zanaflex) 4 MG tablet Take 4 mg by mouth at bedtime. 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; Translations: [Unspecified mental disorder due to known physiological condition] Onset: 1 06-21-2023 Chronic Diabetes mellitus without complication (11 sources) Type 2 diabetes mellitus without complications; [...] WITHOUT ESOPHAGITIS] Onset: 3 Chronic Essential hypertension (6 sources) Essential (primary) hypertension; Translations: [Hypertensive disorder] Onset: 9 06-21-2023 Chronic Headache; including migraine (5 sources) Migraine; Translations: [Migraine, unspecified, not intractable, without status migrainosus] Onset: 7 06-21-2023 Chronic Hyperplasia of prostate (1 source) Benign prostatic hypertrophy without outflow obstruction; Translations: [Benign prostatic hyperplasia without lower urinary tract symptoms] Onset: 2 Chronic Miscellaneous mental health disorders (8 sources) Primary insomnia; Translations: [Primary insomnia] Onset: 3 03-11-2023 Chronic Mood disorders (1 source) Major depressive disorder, single episode, unspecified; Translations: [MARITZA DEPRESS D/O SINGLE EPIS UNS] Onset: 2 Chronic Mood disorders (1 source) Mood disorders; Translations: [DEPRESSION UNSPECIFIED] Onset: 3 Osteoarthritis (6 sources) Unspecified osteoarthritis, unspecified site; Translations: [Arthritis of right acromioclavicular joint] Onset: 8 06-21-2023 Chronic Other aftercare (1 source) [facility] (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; Translations: [ASSISTED 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 ASPIRIN] Onset: 3 Episodic Other aftercare (1 source) Other termite renewal inspector (current) drug therapy; Translations: [OTH ASSISTED CURRENT DRUG THERAPY] Onset: 3 Episodic Other [...] Onset: 3 Episodic Other male genital disorders (5 sources) Secondary erectile dysfunction; Translations: [Male erectile [...] Onset: 2 Chronic Other nervous system disorders (5 sources) Carpal tunnel syndrome of right wrist; Translations: [Carpal tunnel syndrome, right upper limb] Onset: 8 06-21-2023 Chronic Other nervous system disorders (7 sources) Lesion of ulnar nerve, right upper limb; Translations: [Lesion of ulnar nerve] Onset: 3 06-21-2023 Chronic Other nervous system disorders (5 sources) Chronic pain; Translations: [Other chronic pain] Onset: 8 06-21-2023 Chronic Other nervous system disorders (5 sources) Ulnar nerve entrapment; Translations: [Lesion of ulnar nerve, unspecified upper limb] Onset: 3 06-21-2023 Chronic Residual codes; unclassified (1 source) Sleep apnea, unspecified; Translations: [SLEEP APNEA UNSPECIFIED] Onset: 3 Chronic Residual codes; unclassified (8 sources) Daytime somnolence; Translations: [Other hypersomnia] Onset: 3 03-11-2023 Chronic Residual codes; unclassified (7 sources) Obstructive sleep apnea syndrome; Translations: [Obstructive sleep apnea (adult) (pediatric)] Onset: 3 06-21-2023 Chronic Spondylosis; intervertebral disc disorders; other back problems (20 sources) Cervical disc disorder; Translations: [Cervical disc [...] Date Episodic/Chronic Coma; stupor; and brain damage (5 sources) Clouded consciousness; Translations: [Stupor] Onset: 03-03-2012 06-21-2023 Episodic E Codes: Natural/environment (1 source) Exposure to other specified factors, initial encounter; Translations: [EXPOSURE OTHER SPEC FACTORS INITIAL] Onset: 04-27-2022 Episodic Gastritis and duodenitis (5 sources) Gastritis; Translations: [Gastritis, unspecified, without bleeding] Onset: 05-09-2013 06-21-2023 Episodic Heart valve disorders (5 sources) Systolic murmur; Translations: [Cardiac murmur, unspecified] Onset: 06-24-2023 06-24-2023 Episodic Immunizations and screening for infectious disease (1 source) Encounter for immunization; Translations: [ENCOUNTER FOR IMMUNIZATION] Onset: 04-27-2022 Episodic Inflammatory conditions of male genital organs (4 sources) Inflammatory disorders of scrotum; Translations: [INFLAMMATORY DISORDERS OF SCROTUM] Onset: 01-04-2022 Episodic Malaise and fatigue (5 sources) Fatigue; Translations: [Other fatigue] Onset: 03-03-2012 06-21-2023 Episodic Noninfectious gastroenteritis (5 sources) Gastroenteritis; Translations: [Noninfective gastroenteritis and colitis, unspecified] Onset: 04-10-2015 06-21-2023 Episodic Nonspecific chest pain (10 sources) Chest discomfort; Translations: [Other chest pain] Onset: 11-30-2011 06-21-2023 Episodic Open wounds of extremities (4 sources) Puncture wound without foreign body, left foot, initial encounter; Translations: [PUNCT WOUND W/O FB LT FOOT INITIAL] Onset: 03-26-2022 Episodic Other circulatory disease (5 sources) Capillary hemangioma; Translations: [Nevus, non-neoplastic] Onset: 05-28-2008 06-21-2023 Episodic Other connective tissue disease (5 sources) Spasm of cervical paraspinous muscle; Translations: [Other muscle spasm] Onset: 03-11-2023 03-11-2023 Episodic Other connective tissue disease (5 sources) Bursitis; Translations: [Bursopathy, unspecified] Onset: 02-27-2011 06-21-2023 Episodic Other connective tissue disease (5 sources) Foot pain; Translations: [Pain in unspecified foot] Onset: 10-07-2012 06-21-2023 Episodic Other connective tissue disease (5 sources) Muscle pain; Translations: [Myalgia, unspecified site] Onset: 12-02-2012 06-21-2023 Episodic Other connective tissue disease (5 sources) Impingement syndrome of shoulder region; Translations: [Impingement syndrome of unspecified shoulder] Onset: 01-25-2003 06-21-2023 Episodic Other connective tissue disease (5 sources) Lateral epicondylitis; Translations: [Lateral epicondylitis, unspecified elbow] Onset: 06-24-2023 06-24-2023 Episodic Other connective tissue disease (5 sources) Other symptoms and signs involving the musculoskeletal system; Translations: [Other musculoskeletal symptoms referable to limbs] Onset: 12-29-2023 12-29-2023 Episodic Other lower respiratory disease (5 sources) Dyspnea; Translations: [Dyspnea, unspecified] Onset: 11-30-2011 06-21-2023 Episodic Other nervous system disorders (6 sources) Numbness of upper limb; Translations: [Anesthesia of skin] Onset: 12-29-2023 08-25-2023 Episodic Other non-traumatic joint disorders (5 sources) Ankle edema; Translations: [Effusion, unspecified ankle] Onset: 05-15-2014 06-21-2023 Episodic Other non-traumatic joint disorders (5 sources) Joint pain; Translations: [Pain in unspecified joint] Onset: 09-03-2009 06-21-2023 Episodic Other screening for suspected conditions (not mental disorders or infectious disease) (16 sources) Encounter for screening for malignant neoplasm of prostate; Translations: [Elevated prostate specific antigen [PSA]] Onset: 03-13-2022 Episodic Other skin disorders (5 sources) Excessive sweating; Translations: [Generalized hyperhidrosis] Onset: 12-18-2015 06-21-2023 Episodic Other skin disorders (5 sources) Senile hyperkeratosis; Translations: [Actinic keratosis] Onset: 03-28-2015 06-21-2023 Episodic Other skin disorders (5 sources) Hyperhidrosis; Translations: [Generalized hyperhidrosis] Onset: 06-24-2023 06-24-2023 Episodic Other upper respiratory infections (5 sources) Upper respiratory infection; Translations: [Acute upper respiratory infection, unspecified] Onset: 12-05-2010 06-21-2023 Episodic Skin and subcutaneous tissue infections (5 sources) Cellulitis; Translations: [Cellulitis, unspecified] Onset: 03-31-2013 06-21-2023 Episodic Spondylosis; intervertebral disc disorders; other back problems (16 sources) Cervical disc prolapse with radiculopathy; Translations: [Cervical disc disorder with radiculopathy, unspecified cervical region] Onset: 10-11-2018 08-25-2023 Episodic Urinary tract infections (5 sources) Urinary tract infectious disease; Translations: [Urinary tract infection, site not specified] Onset: 06-28-2014 06-21-2023 Episodic Results Test Name Value Interpretation Reference Range Facility [facility] 01-03-2024 L Specimen: [id number] Received: 01/03/24 Status: SOUT Req Num: [id number] Spec Type: Surgical Subm Dr: Trey Vallejo DPM, MS Tissues: A Bone Fragments - Pathologic Fracture (PROXIMAL PHALANX RIGHT HALLU) Procedures: HE/2, Gross/Micro L5, Decalcification Age/ Patient Sex Location Account Attending Physician Matty Garces 53/M [facility] [id number] Trey Vallejo DPM, MS SPEC NUM: [id number] RECD: 01/03/24 STATUS: [facility]ANNI [facility] NUM: [id number] SOFY: 01/03/[address] [facility] DR: Trey Vallejo DPM, MS ENTERED: 01/03/24 [facility] DR: Ayesha Lundberg SPEC TYPE: Surgical DEPT: [...] Sectioning reveals unremarkable yellow, spongy bone matrix. Unhairing Inspector sections are submitted in A1 following decal. Clinical history: Non-pressure chronic ulcer . Right hallux IPJ arthroplasty with wound debridement and graft application TW Specimen: [id number] Received: 01/03/24 Status: GIOVANNI Ophelia Num: [id number] Spec Type: Surgical Subm Dr: Trey Vallejo DPM, MS Tissues: A Bone Fragments - Pathologic Fracture (PROXIMAL PHALANX RIGHT HALLU) Procedures: HE/2, Gross/Micro L5, Decalcification Patient: Matty Garces [id number] (Continued) Specimen: [id number] Received: 01/03/24 (Continued) Signed (signature on file) Viral Rae MD 01/06/24 1838 Specimen: [id number] Received: 01/03/24 Status: GIOVANNI Jacinto Num: [id number] Spec Type: Surgical Subm Dr: Trey Vallejo,DPJose Eduardo, MS Tissues: A Bone Fragments - Pathologic Fracture (PROXIMAL PHALANX RIGHT HALLU) Procedures: HE/2, Gross/Micro L5, Decalcification Patient: Matty Garces [id number] (Continued) Specimen: [id number] Received: 01/03/24 (Continued) CPT Codes 95952 Specimen: [id number] Received: 01/03/24 Status: GIOVANNI Jacinto Num: [id number] Spec Type: Surgical Subm Dr: Trey Vallejo,CHINO, MS Tissues: A Bone Fragments - Pathologic Fracture (PROXIMAL PHALANX RIGHT HALLU) Procedures: HE/2, Gross/Micro L5, Decalcification Patient: Matty Garces [id number] (Continued) Signed (signature on file) Kuldip-Christopher Rae MD 01/06/24 1838 Normal [facility] CT CSPINE WO CONon CT [...] Anterior corpectomy at C5-C6. Electronically authenticated by: SourceDNAOR SAID Date: 2022-12-06 06:37 [address] [facility] [address] FACIAL BONES WO CONon CT [...] maxillary sinus mucoperiosteal thickening Electronically authenticated by: SourceDNAOR SAID Date: 2022-12-06 06:[address] [facility] [address] HEAD WO CONon 12-06-2022 CT [...] ANGEL JORDAN Date: 2022-12-06 06:39 Normal [facility] XR ELBOW RT MIN 3 VIEWSon XR ELBOW RT MIN 3 VIEWS Exam: Radiographs: XR ELBOW RT MIN 3 VIEWS Reason for exam: Elbow pain Comparison: None IMPRESSION: Right elbow degenerative changes. Olecranon spur. Remainder of the right elbow is unremarkable. Electronically authenticated by: MICHAEL CASANOVA Date: 2022-12-06 07:22 Normal [facility] XR FOREARM RT 2Von XR FOREARM RT 2V Exam: Radiographs: XR FOREARM RT 2V Reason for exam: Forearm pain Comparison: None IMPRESSION: Mild degenerative changes in the right elbow and wrist. Right forearm is otherwise unremarkable. Electronically authenticated by: MICHAEL CASANOVA Date: 2022-12-06 08:07 Normal [facility] PSA, FREE AND TOTAL RATIOon 12-03-2022 % Free PSA 9.0 % Normal [facility] Comment on above: Result Comment: The [...] men. Performed By: #### P SAFREE #### [facility] [address] [place] [address] Dr. Shabnam Rae Prostate specific Ag [Mass/Vol] 5.9 ng/mL Critically high 0.0-4.0 [facility] Comment on above: Result Comment: Tanja BRANTLEY methodology. . According to the [employer], Serum PSA should decrease and [...] disease. Performed By: #### P SAFREE #### [facility] [address] [address] [address] Shabnam Rae PSA, Free 0.53 ng/mL Normal N/A [facility] Comment on above: Result Comment: Tanja ayala ECLIA methodology. Performed By: #### P SAFREE #### [facility] [address] [address] [address] Shabnam Rae INSULINon 12-02-2022 Insulin 20.2 uIU/mL Normal 2.6-24.9 [facility] Comment on above: Performed By: #### P SASC #### [facility] [address] [address] [address] Shabnam Rae TESTOSTERONE, TOTALon 2022 Testosterone [Mass/Vol] 256 ng/dL Critically low 264-916 [facility] Comment on above: Result Comment: Adul t male reference interval is based on a population of healthy nonobese males (BMI <30) between 19 and 39 years old. adia Ch.al. JCEM 2017,102;3178-1264. PMID: [id number]. Performed By: #### P SASC #### [facility] [address] [address] [address] Shabnam Rae CBC AUTO DIFFon 12-01-2022 BASO # 0.1 103/ul Normal 0.0-0.1 [facility] Comment on above: Performed By: #### P SASC #### [facility] [address] [address] [address] Shabnam Rae Basophils/100 WBC (Bld) 1.0 % Normal 0.2-2.0 [facility] Comment on above: Performed By: #### P SASC #### [facility] [address] [place] [address] Dr. Shabnam Rae EO # 0.1 103/ul Normal 0.0-0.7 [facility] Comment on above: Performed By: #### P SASC #### [facility] [address] [place] [address] Dr. Shabnam Rae Eosinophils/100 WBC (Bld) 1.8 % Normal 0.9-7.0 [facility] Comment on above: Performed By: #### P SASC #### [facility] [address] [place] [address] Dr. Shabnam Rae Erythrocyte distribution width (RBC) [Ratio] 14.8 % Normal 11.0-15.0 [facility] Comment on above: Performed By: #### P SASC #### [facility] [address] [place] [address] Dr. Shabnam Rae Hematocrit (Bld) [Volume fraction] 49.9 % Normal 42.0-54.0 [facility] Comment on above: Performed By: #### P SASC #### [facility] [address] [place] [address] Dr. Shabnam Rae Hemoglobin (Bld) [Mass/Vol] 16.0 g/dL Normal 14.0-18.0 [facility] Comment on above: Performed By: #### P SASC #### [facility] [address] [place] [address] Dr. Shabnam Rae IG # 0.04 10e3/ul Critically high 0.00-0.03 [facility] Comment on above: Performed By: #### P SASC #### [facility] [address] [place] [address] Dr. Shabnam Rae IG % 0.6 % Critically high 0.0-0.5 [facility] Comment on above: Performed By: #### P SASC #### [facility] [address] [place] [address] Dr. Shabnam Rae LYMPH # 1.0 103/ul Critically low 1.2-3.8 [facility] Comment on above: Performed By: #### P SASC #### [facility] [address] [place] [address] Dr. Shabnam Rae Lymphocytes/100 WBC (Bld) 16.2 % Critically low 20.5-60.0 [facility] [facility] Comment on above: Performed By: #### P SASC #### [facility] [address] [place] [address] Dr. Shabnam Rae MANUAL DIFF REQ NO Normal [facility] Comment on above: Performed By: #### P SASC #### [facility] [address] [place] [address] Dr. Shabnam Rae MCH (RBC) [Entitic mass] 27.7 pg Normal 25.9-34.0 [facility] Comment on above: Performed By: #### P SASC #### [facility] [address] [place] [address] Dr. Shabnam Rae MCHC (RBC) [Mass/Vol] 32.1 g/dL Normal 29.9-35.2 [facility] Comment on above: Performed By: #### P SASC #### [facility] [address] [place] [address] Dr. Shabnam Rae MCV (RBC) [Entitic vol] 86.3 fL Normal 80.0-94.0 [facility] Comment on above: Performed By: #### P SASC #### [facility] [address] [place] [address] Dr. Shabnam Rae MONO # 0.5 103/ul Normal 0.3-0.8 [facility] Comment on above: Performed By: #### P SASC #### [facility] [address] [place] [address] Dr. Shabnam Rae Monocytes/100 WBC (Bld) 7.6 % Normal 1.7-12.0 [facility] Comment on above: Performed By: #### P SASC #### [facility] [address] [place] [address] Dr. Shabnam Rae NEUT # 4.6 103/ul Normal 1.4-6.5 [facility] Comment on above: Performed By: #### P SASC #### [facility] [address] [address] [address] Shabnam Rae Neutrophils/100 WBC (Bld) 72.8 % Normal 43.0-75.0 [facility] Comment on above: Performed By: #### P SASC #### [facility] [address] [address] [address] Shabnam Rae Platelet mean volume (Bld) [Entitic vol] 9.8 fL Normal 9.5-13.5 [facility] Comment on above: Performed By: #### P SASC #### [facility] [address] [place] [address] Dr. Shabnam Rae PLT 203 103/ul Normal 150-450 [facility] Comment on above: Performed By: #### P SASC #### [facility] [address] [place] [address] Dr. Shabnam Rae RBC 5.78 106/ul Normal 4.70-6.10 [facility] Comment on above: Performed By: #### P SASC #### [facility] [address] [place] [address] Dr. Shabnam Rae WBC 6.3 103/ul Normal 4.0-11.0 [facility] Comment on above: Performed By: #### P SASC #### [facility] [address] [place] [address] Dr. Shabnam Rae FREE THYROXINE INDEX T7on FTI 2.05 Normal 1.30-4.50 [facility] Comment on above: Performed By: #### T SH, CMP, LIPID, T7, URIC #### [facility] [address] [place] [address] Dr. Shabnam Rae T3U 33.0 % Normal 33.0-40.0 [facility] Comment on above: Performed By: #### T SH, CMP, LIPID, T7, URIC #### [facility] [address] [place] [address] Dr. Shabnam Rae T4 [Mass/Vol] 6.20 ug/dL Normal 4.50-12.[address] [facility] Comment on above: Performed By: #### T SH, CMP, LIPID, T7, URIC #### [facility] [address] [address] [address] Shabnam Rae GLYCOHEMOGLOBIN A1Con 2022 ADA RECOMMENDATION SEE BELOW Normal [facility] Comment on above: Result Comment: ADA RECOMMENDED LIMIT 4.0 - 6.0 ADA THERAPEUTIC TARGET < 7.0 ACTION SUGGESTED > 7.0 Performed By: #### P SASC #### [facility] [address] [address] [address] Shabnam Rae Glucose [Mass/Vol] 114 mg/dL Normal [facility] Comment on above: Performed By: #### P SASC #### [facility] [address] [address] [address] Shabnam Rae HbA1c (Bld) [Mass fraction] 5.6 % Normal 4.5-6.2 [facility] Comment on above: Performed By: #### P SASC #### [facility] [address] [address] [address] Shabnam Rae LIPID PROFILEon 12-01-2022 CHOL-HDL RATIO NORM SEE BELOW Normal [facility] Comment on above: Result Comment: 3.3 - 4.4 LOW RISK 4.4 - 7.1 AVERAGE RISK 7.1 - 11.0 MODERATE RISK >11.0 HIGH RISK Performed By: #### T SH, CMP, LIPID, T7, URIC #### [facility] [address] [address] [address] Shabnam Rae Cholesterol [Mass/Vol] 176 mg/dL Normal <=200 [facility] Comment on above: Performed By: #### T SH, CMP, LIPID, T7, URIC #### [facility] [address] [address] [address] Shabnam Rae Cholesterol in HDL [Mass/Vol] 48 mg/dL Normal 40-60 [facility] Comment on above: Performed By: #### T SH, CMP, LIPID, T7, URIC #### [facility] [address] [address] [address] Shabnam Rae Cholesterol in LDL [Mass/Vol] 108.2 mg/dL Normal [facility] Comment on above: Performed By: #### T SH, CMP, LIPID, T7, URIC #### [facility] [address] [address] [address] Shabnam Rae Cholesterol.total/Ch olesterol in HDL [Mass ratio] 3.7 {ratio} Normal [facility] Comment on above: Performed By: #### T SH, CMP, LIPID, T7, URIC #### [facility] [address] [address] [address] Shabnam Rae HDL NORMAL > or = 60 mg/dl - LOW CARDIOVASCULAR RISK <40 mg/dl - HIGH CARDIOVASCULAR RISK Normal [facility] Comment on above: Performed By: #### T SH, CMP, LIPID, T7, URIC #### [facility] [address] [address] [address] Shabnam Rae LDL CALC NORMAL SEE BELOW Normal [facility] Comment on above: Result Comment: <100 mg/dl OPTIMAL 100 - 129 mg/dl NEAR OR ABOVE OPTIMAL 130 - 159 mg/dl BORDERLINE HIGH 160 - 189 mg/dl HIGH >190 mg/dl VERY HIGH Performed By: #### T SH, CMP, LIPID, T7, URIC #### [facility] [address] [address] [address] Shabnam Rae Triglyceride [Mass/Vol] 99 mg/dL Normal <=150 [facility] Comment on above: Performed By: #### T SH, CMP, LIPID, T7, URIC #### [facility] [address] [address] [address] Shabnam Rae VLDL CALC 19.8 mg/dL Normal [facility] Comment on above: Performed By: #### T SH, CMP, LIPID, T7, URIC #### [facility] [address] [address] [address] Shabnam Rae PROF 14(COMP METB)on 023 Albumin [Mass/Vol] 4.1 g/dL Normal 3.4-5.0 [facility] Comment on above: Performed By: #### T SH, CMP, LIPID, T7, URIC #### [facility] [address] [address] [address] Shabnam Rae Albumin/Globulin [Mass ratio] 1.1 {ratio} Normal [facility] Comment on above: Performed By: #### T SH, CMP, LIPID, T7, URIC #### [facility] [address] [address] [address] Shabnam Rae ALP [Catalytic activity/Vol] 101 U/L Normal 46-116 [facility] Comment on above: Performed By: #### T SH, CMP, LIPID, T7, URIC #### [facility] [address] [place] [address] Dr. Shabnam Rae ALT [Catalytic activity/Vol] 26 U/L Normal 16-63 [facility] Comment on above: Performed By: #### T SH, CMP, LIPID, T7, URIC #### [facility] [address] [place] [address] Dr. Shabnam Rae Anion gap [Moles/Vol] 10.1 mmol/L Normal [facility] Comment on above: Performed By: #### T SH, CMP, LIPID, T7, URIC #### [facility] [address] [place] [address] Dr. Shabnam Rae AST [Catalytic activity/Vol] 19 U/L Normal 15-37 [facility] Comment on above: Performed By: #### T SH, CMP, LIPID, T7, URIC #### [facility] [address] [address] [address] Shabnam Rae Bilirubin [Mass/Vol] 0.8 mg/dL Normal 0.2-1.0 [facility] Comment on above: Performed By: #### T SH, CMP, LIPID, T7, URIC #### [facility] [address] [place] [address] Dr. Shabnam Rae Calcium [Mass/Vol] 9.5 mg/dL Normal 8.5-10.1 [facility] Comment on above: Performed By: #### T SH, CMP, LIPID, T7, URIC #### [facility] [address] [address] [address] Shabnam Rae Chloride [Moles/Vol] 102 mmol/L Normal 98-107 [facility] Comment on above: Performed By: #### T SH, CMP, LIPID, T7, URIC #### [facility] [address] [address] [address] Shabnam Rae CO2 [Moles/Vol] 32.4 mmol/L Critically high 21.0-32.0 [facility] Comment on above: Performed By: #### T SH, CMP, LIPID, T7, URIC #### [facility] [address] [address] [address] Shabnam Rae Creatinine [Mass/Vol] 1.00 mg/dL Normal 0.70-1.30 [facility] Comment on above: Performed By: #### T SH, CMP, LIPID, T7, URIC #### [facility] [address] [address] [address] Shabnam Rae EGFR-AF SOUTH AFRICAN >60 Normal >=60 [facility] Comment on above: Performed By: #### T SH, CMP, LIPID, T7, URIC #### [facility] [address] [address] [address] Shabnam Rae EGFR-NON AF SOUTH AFRICAN >60 Normal >=60 [facility] Comment on above: Performed By: #### T SH, CMP, LIPID, T7, URIC #### [facility] [address] [address] [address] Shabnam Rae Globulin (S) [Mass/Vol] 3.8 g/dL Normal [facility] Comment on above: Performed By: #### T SH, CMP, LIPID, T7, URIC #### [facility] [address] [address] [address] Shabnam Rae Glucose [Mass/Vol] 94 mg/dL Normal 74-106 [facility] Comment on above: Performed By: #### T SH, CMP, LIPID, T7, URIC #### [facility] [address] [address] [address] Shabnam Rae Potassium [Moles/Vol] 3.5 mmol/L Normal 3.5-5.1 [facility] Comment on above: Performed By: #### T SH, CMP, LIPID, T7, URIC #### [facility] [address] [place] [address] Dr. Shabnam Rae Protein [Mass/Vol] 7.9 g/dL Normal 6.4-8.2 [facility] Comment on above: Performed By: #### T SH, CMP, LIPID, T7, URIC #### [facility] [address] [place] [address] Dr. Shabnam Rae Sodium [Moles/Vol] 141 mmol/L Normal 136-145 [facility] Comment on above: Performed By: #### T SH, CMP, LIPID, T7, URIC #### [facility] [address] [place] [address] Dr. Shabnam Rae Urea nitrogen [Mass/Vol] 15.0 mg/dL Normal 7.0-18.0 [facility] Comment on above: Performed By: #### T SH, CMP, LIPID, T7, URIC #### [facility] [address] [place] [address] Dr. Shabnam Rae Urea nitrogen/Creatinine [Mass ratio] 15.0 mg/mg Normal [facility] Comment on above: Performed By: #### T SH, CMP, LIPID, T7, URIC #### [facility] [address] [place] [address] Dr. Shabnam Rae TSHon 12-01-2022 TSH 1.504 uIU/mL Normal 0.358-3.[address] [facility] Comment on above: Performed By: #### T SH, CMP, LIPID, T7, URIC #### [facility] [address] [place] [address] Dr. Shabnam Rae URIC ACID SERUMon 12-01-2022 Urate [Mass/Vol] 6.9 mg/dL Normal 3.5-7.2 [facility] Comment on above: Performed By: #### T SH, CMP, LIPID, T7, URIC #### [facility] [address] [place] [address] Dr. Shabnam Rae TESTOSTERONE, TOTALon 2021 Testosterone [Mass/Vol] 244 ng/dL Critically low 264-916 [facility] Comment on above: Result Comment: Adul t male reference interval is based on a population of healthy nonobese males (BMI <30) between 19 and 39 years old. Diam, et.al. EM 2017,102;8850-0029. PMID: [id number]. Performed By: #### P SAFREE #### [facility] [address] [place] [address] Dr. Shabnam Rae TESTOSTERONE, FREE,DIRECT, T OTALon 03-16-2022 Free Testosterone(Direct) 2.1 pg/mL Critically low 7.2-24.0 [facility] Comment on above: Result Comment: Perf ormed at: BN Performed By: #### C VDTBH #### [facility] [address] [place] [address] Dr. Shabnam Rae Testosterone [Mass/Vol] 252 ng/dL Critically low 264-916 [facility] Comment on above: Result Comment: Adul t male reference interval is based on a population of healthy nonobese males (BMI <30) between 19 and 39 years old. Travison, et.al. JCEM 2017,102;9766-9224. PMID: [id number]. Performed at: CB Performed By: #### C VDTBH #### [facility] [address] [place] [address] Dr. Shabnam Rae Formson 02-26-2022 Forms [id number] 7#1.00CD:127 Normal [facility] Screenson 02-26-2022 Screens [id number] 7#1.00CD:127 Normal [facility] Screens [id number] #1.00CD:127 Normal [facility] Urology Office/Clinic Noteon 02-26-2022 Urology Office/Clinic [...] qualifying data (more content not included)... Normal [facility] Comment on above: Result Comment: Elec tronically Signed By: Viola Grullon MD\.br\Date and Time Signed: 02/26/22 00:20 EDT\.br\Electronically Co-Signed By: Helen Leung\.br\Date and Time Co-Signed: 02/25/22 11:16 EDT Ambulatory Visit Summaryon 0 02-25-2022 Ambulatory Visit Summary SHERI MATTY T :1970 Visit Date:02/25/2022 Ambulatory Visit Instructions Your Diagnosis Hydrocele Varicocele BPH without urinary obstruction Tests Performed Urnls Dip Stick Auto w/o Microscopy POC 12548 Your Care Team Attending Physician - Viola [...] Urnls Dip Stick Auto w/o Microscopy POC 94020 (02/25/2022) Bilirubin Urine Dipstick - Negative Blood Urine Dipstick - Negative Glucose Urine Dipstick - Negative Ketones Urine Dipstick - Negative Leukocytes Urine Dipstick - Negative Nitrite Urine Dipstick - Negative Protein Urine Dipstick - Negative Specific [place] Urine Dipstick - >=1.030 Urine Appearance Urine [...] the hydrocele for any changes. ? Take mnmg-rtu-qaoyzyd and prescription medicines only as told by [...] intended t (more content not included)... Normal [facility] Patient Educationon 02-26-20 Patient Education Urology [...] the hydrocele for any changes. ? Take lvsx-pcg-fczzgmt and prescription medicines only as told by [...] 02/17/2011 Document Revised: 09/10/2018 Document Reviewed: 09/10/2018 [employer] Patient Education ? 2019 [employer]. Normal [facility] ED Note-Physicianon 02-04-20 ED Note-Physician [id number] 62#1.00CD:127 Normal [facility] RAD - Ultrasound Reporton RAD - Ultrasound Report [id number] #1.00CD:127 Normal [facility] RAD - CT Reporton 02-02-2022 RAD - CT Report [id number] 55#1.00CD:127 [facility] RAD - CT Report [id number] 75#1.00CD:127 Normal [facility] CBC AUTO DIFFon 01-05-2022 BASO # 0.0 103/ul Normal 0.0-0.1 [facility] Comment on above: Performed By: #### P SAFREE #### [facility] [address] [place], [place] [address] Dr. Shabnam Rae Basophils/100 WBC (Bld) 0.6 % Normal 0.2-2.0 [facility] Comment on above: Performed By: #### P SAFREE #### [facility] [address] [address] [address] Shabnam Rae EO # 0.1 103/ul Normal 0.0-0.7 [facility] Comment on above: Performed By: #### P SAFREE #### [facility] [address] [address] [address] Shabnam Rae Eosinophils/100 WBC (Bld) 2.1 % Normal 0.9-7.0 [facility] Comment on above: Performed By: #### P SAFREE #### [facility] [address] [place] [address] Dr. Shabnam Rae Erythrocyte distribution width (RBC) [Ratio] 13.1 % Normal 11.0-15.0 [facility] Comment on above: Performed By: #### P SAFREE #### [facility] [address] [place] [address] Dr. Shabnam Rae Hematocrit (Bld) [Volume fraction] 43.1 % Normal 42.0-54.0 [facility] Comment on above: Performed By: #### P SAFREE #### [facility] [address] [place] [address] Dr. Shabnam Rae Hemoglobin (Bld) [Mass/Vol] 13.7 g/dL Critically low 14.0-18.0 [facility] Comment on above: Performed By: #### P SAFREE #### [facility] [address] [place] [address] Dr. Shabnam Rae IG # 0.04 10e3/ul Critically high 0.00-0.03 [facility] Comment on above: Performed By: #### P SAFREE #### [facility] [address] [place] [address] Dr. Shabnam Rae IG % 0.6 % Critically high 0.0-0.[address] [facility] Comment on above: Performed By: #### P SAFREE #### [facility] [address] [place] [address] Dr. Shabnam Rae LYMPH # 0.9 103/ul Critically low 1.2-3.8 [facility] Comment on above: Performed By: #### P SAFREE #### [facility] [address] [address] [address] Shabnam Rae Lymphocytes/100 WBC (Bld) 13.1 % Critically low 20.5-60.0 [facility] Comment on above: Performed By: #### P SAFREE #### [facility] [address] [address] [address] Shabnam Rae MANUAL DIFF REQ NO Normal [facility] Comment on above: Performed By: #### P SAFREE #### [facility] [address] [address] [address] Shabnam Rae MCH (RBC) [Entitic mass] 29.5 pg Normal 25.9-34.0 [facility] Comment on above: Performed By: #### P SAFREE #### [facility] [address] [place] [address] Dr. Shabnam Rae MCHC (RBC) [Mass/Vol] 31.8 g/dL Normal 29.9-35.2 [facility] Comment on above: Performed By: #### P SAFREE #### [facility] [address] [place] [address] Dr. Shabnam Rae MCV (RBC) [Entitic vol] 92.9 fL Normal 80.0-94.0 [facility] Comment on above: Performed By: #### P SAFREE #### [facility] [address] [place] [address] Dr. Shabnam Rae MONO # 0.4 103/ul Normal 0.3-0.8 [facility] Comment on above: Performed By: #### P SAFREE #### [facility] [address] [place] [address] Dr. Shabnam Rae Monocytes/100 WBC (Bld) 5.4 % Normal 1.7-12.0 [facility] Comment on above: Performed By: #### P SAFREE #### [facility] [address] [place] [address] Dr. Shabnam Rae NEUT # 5.2 103/ul Normal 1.4-6.5 [facility] Comment on above: Performed By: #### P SAFREE #### [facility] [address] [address] [address] Shabnam Rae Neutrophils/100 WBC (Bld) 78.2 % Critically high 43.0-75.0 [facility] Comment on above: Performed By: #### P SAFREE #### [facility] [address] [address] [address] Shabnam Rae Platelet mean volume (Bld) [Entitic vol] 10.9 fL Normal 9.5-13.5 [facility] Comment on above: Performed By: #### P SAFREE #### [facility] [address] [address] [address] Shabnam Rae PLT 153 103/ul Normal 150-450 [facility] Comment on above: Performed By: #### P SAFREE #### [facility] [address] [address] [address] Shabnam Rae RBC 4.64 106/ul Critically low 4.70-6.10 [facility] Comment on above: Performed By: #### P SAFREE #### [facility] [address] [address] [address] Shabnam Rae WBC 6.6 103/ul Normal 4.0-11.0 [facility] Comment on above: Performed By: #### P SAFREE #### [facility] [address] [place] [address] Dr. Shabnam Rae CRPon 01-05-2022 CRP 0.9 mg/dL Normal <=1.0 [facility] Comment on above: Performed By: #### P SAFREE #### [facility] [address] [address] [address] Shabnam Rae PROF 14(COMP METB)on 022 Albumin [Mass/Vol] 3.6 g/dL Normal 3.4-5.0 [facility] Comment on above: Performed By: #### P SAFREE #### [facility] [address] [place] [address] Dr. Shabnam Rae Albumin/Globulin [Mass ratio] 1.0 {ratio} Normal [facility] Comment on above: Performed By: #### P SAFREE #### [facility] [address] [address] [address] Shabnam Rae ALP [Catalytic activity/Vol] 114 U/L Normal 46-116 [facility] Comment on above: Performed By: #### P SAFREE #### [facility] [address] [address] [address] Shabnam Rae ALT [Catalytic activity/Vol] 26 U/L Normal 16-63 [facility] Comment on above: Performed By: #### P SAFREE #### [facility] [address] [address] [address] Shabnam Rae Anion gap [Moles/Vol] 9.3 mmol/L Normal [facility] Comment on above: Performed By: #### P SAFREE #### [facility] [address] [place] [address] Dr. Shabnam Rae AST [Catalytic activity/Vol] 19 U/L Normal 15-37 [facility] Comment on above: Performed By: #### P SAFREE #### [facility] [address] [address] [address] Shabnam Rae Bilirubin [Mass/Vol] 0.5 mg/dL Normal 0.2-1.0 [facility] Comment on above: Performed By: #### P SAFREE #### [facility] [address] [place] [address] Dr. Shabnam Rae Calcium [Mass/Vol] 8.9 mg/dL Normal 8.5-10.1 [facility] Comment on above: Performed By: #### P SAFREE #### [facility] [address] [address] [address] Shabnam Rae Chloride [Moles/Vol] 106 mmol/L Normal 98-107 [facility] Comment on above: Performed By: #### P SAFREE #### [facility] [address] [address] [address] Shabnam Rae CO2 [Moles/Vol] 30.7 mmol/L Normal 21.0-32.0 [facility] Comment on above: Performed By: #### P SAFREE #### [facility] [address] [place] [address] Dr. Shabnam Rae Creatinine [Mass/Vol] 1.15 mg/dL Normal 0.70-1.30 [facility] Comment on above: Performed By: #### P SAFREE #### [facility] [address] [place] [address] Dr. Shabnam Rae EGFR-AF SOUTH AFRICAN >60 Normal >=60 [facility] Comment on above: Performed By: #### P SAFREE #### [facility] [address] [place] [address] Dr. Shabnam Rae EGFR-NON AF SOUTH AFRICAN >60 Normal >=60 [facility] Comment on above: Performed By: #### P SAFREE #### [facility] [address] [place] [address] Dr. Shabnam Rae Globulin (S) [Mass/Vol] 3.6 g/dL Normal [facility] Comment on above: Performed By: #### P SAFREE #### [facility] [address] [place] [address] Dr. Shabnam Rae Glucose [Mass/Vol] 117 mg/dL Critically high 74-106 [facility] Comment on above: Performed By: #### P SAFREE #### [facility] [address] [place] [address] Dr. Shabnam Rae Potassium [Moles/Vol] 4.0 mmol/L Normal 3.5-5.1 [facility] Comment on above: Performed By: #### P SAFREE #### [facility] [address] [place] [address] Dr. Shabnam Rae Protein [Mass/Vol] 7.2 g/dL Normal 6.1-8.2 [facility] Comment on above: Performed By: #### P SAFREE #### [facility] [address] [place] [address] Dr. Shabnam Rae Sodium [Moles/Vol] 142 mmol/L Normal 136-145 [facility] Comment on above: Performed By: #### P SAFREE #### [facility] [address] [place] [address] Dr. Shabnam Rae Urea nitrogen [Mass/Vol] 15.0 mg/dL Normal 7.0-18.0 [facility] Comment on above: Performed By: #### P SAFREE #### [facility] [address] [place] [address] Dr. Shabnam Rae Urea nitrogen/Creatinine [Mass ratio] 13.0 mg/mg Normal [facility] Comment on above: Performed By: #### P SAFREE #### [facility] [address] [address] [address] Shabnam Rae US SCROTUMon 01-05-2022 US [...] ALVINA CAICEDO Date: 2022-01-05 08:48 Normal [facility] CBC AUTO DIFFon 01-04-2022 BASO # 0.1 103/ul Normal 0.0-0.1 [facility] Comment on above: Performed By: #### C BC #### [facility] [address] [place] [address] Dr. Shabnam Rae Basophils/100 WBC (Bld) 0.8 % Normal 0.2-2.0 [facility] Comment on above: Performed By: #### C BC #### [facility] Laboratory [address] [place] [address] Dr. Shabnam Rae EO # 0.1 103/ul Normal 0.0-0.7 [facility] Comment on above: Performed By: #### C BC #### [facility] [address] [place] [address] Dr. Shabnam Rae Eosinophils/100 WBC (Bld) 1.5 % Normal 0.9-7.0 [facility] Comment on above: Performed By: #### C BC #### [facility] [address] [place] [address] Dr. Shabnam Rae Erythrocyte distribution width (RBC) [Ratio] 12.8 % Normal 11.0-15.0 [facility] Comment on above: Performed By: #### C BC #### [facility] [address] [place] [address] Dr. Shabnam Rae Hematocrit (Bld) [Volume fraction] 40.3 % Critically low 42.0-54.0 [facility] Comment on above: Performed By: #### C BC #### [facility] [address] [place] [address] Dr. Shabnam Rae Hemoglobin (Bld) [Mass/Vol] 13.4 g/dL Critically low 14.0-18.0 [facility] Comment on above: Performed By: #### C BC #### [facility] [address] [place] [address] Dr. Shabnam Rae IG # 0.03 10e3/ul Normal 0.00-0.03 [facility] Comment on above: Performed By: #### C BC #### [facility] [address] [place] [address] Dr. Shabnam Rae IG % 0.5 % Normal 0.0-0.5 [facility] Comment on above: Performed By: #### C BC #### [facility] [address] [place] [address] Dr. Shabnam Rae LYMPH # 1.0 103/ul Critically low 1.2-3.8 [facility] Comment on above: Performed By: #### C BC #### [facility] [address] [place] [address] Dr. Shabnam Rae Lymphocytes/100 WBC (Bld) 16.4 % Critically low 20.5-60.0 [facility] Comment on above: Performed By: #### C BC #### [facility] [address] [place] [address] Dr. Shabnam Rae MANUAL DIFF REQ NO Normal [facility] Comment on above: Performed By: #### C BC #### [facility] [address] [place] [address] Dr. Shabnam Rae MCH (RBC) [Entitic mass] 29.5 pg Normal 25.9-34.0 [facility] Comment on above: Performed By: #### C BC #### [facility] [address] [place] [address] Dr. Shabnam Rae MCHC (RBC) [Mass/Vol] 33.3 g/dL Normal 29.9-35.2 [facility] Comment on above: Performed By: #### C BC #### [facility] [address] [place] [address] Dr. Shabnam Rae MCV (RBC) [Entitic vol] 88.8 fL Normal 80.0-94.0 [facility] Comment on above: Performed By: #### C BC #### [facility] [address] [place] [address] Dr. Shabnam Rae MONO # 0.6 103/ul Normal 0.3-0.8 [facility] Comment on above: Performed By: #### C BC #### [facility] [address] [place] [address] Dr. Shabnam Rae Monocytes/100 WBC (Bld) 9.6 % Normal 1.7-12.0 [facility] Comment on above: Performed By: #### C BC #### [facility] [address] [place] [address] Dr. Shabnam Rae NEUT # 4.4 103/ul Normal 1.4-6.5 [facility] Comment on above: Performed By: #### C BC #### [facility] [address] [place] [address] Dr. Shabnam Rae Neutrophils/100 WBC (Bld) 71.2 % Normal 43.0-75.0 [facility] Comment on above: Performed By: #### C BC #### [facility] [address] [place] [address] Dr. Shabnam Rae Platelet mean volume (Bld) [Entitic vol] 10.8 fL Normal 9.5-13.5 [facility] Comment on above: Performed By: #### C BC #### [facility] [address] [place] [address] Dr. Shabnam Rae PLT 158 103/ul Normal 150-450 [facility] Comment on above: Performed By: #### C BC #### [facility] [address] [place] [address] Dr. Shabnam Rae RBC 4.54 106/ul Critically low 4.70-6.10 [facility] Comment on above: Performed By: #### C BC #### [facility] [address] [place] [address] Dr. Shabnam Rae WBC 6.2 103/ul Normal 4.0-11.0 [facility] Comment on above: Performed By: #### C BC #### [facility] [address] [place] [address] ABD/PELV W CONon [...] MAYRA BERNAL Date: 2022-01-04 05:19 Normal [facility] CT PELVIS WO CONon CT PELVIS [...] MANUEL BRENNANH Date: 2022-01-04 08:54 Normal [facility] CULTURE URINEon 01-04-2022 CULTURE URINE Culture Observations: No growth Normal [facility] Comment on above: Performed By: #### P [facility] #### [facility] [address] [place] [address] Dr. Shabnam Rae Covid-19 PCR ([facility])on 12-13 SARS-CoV-2 (COVID-19) RNA ELIJAH+probe Ql (Unsp spec) Not detected Normal NOT DETECTED [facility] Comment on above: Result Comment: When diagnostic testing is negative, the possibility of a false negative should be considered in the context of a patient's recent exposures and the presence of clinical signs and symptoms consistent with SARS-CoV-2. This test is not yet approved or cleared by the [place] Food and Drug Administration (FDA). This test was developed by [employer], [place], [place]. The performance characteristics of this test were validated by [facility]. The results are not intended to be used as the sole means for clinical diagnosis or patient management decisions. [facility] is authorized under Clinical Laboratory Improvement [...] for this test is supported by the [place] of Health and Human Service's declaration that [...] used). Performed By: #### C VDTB #### [facility] [address] [place] [address] Dr. Shabnam Rae ER URINE PROFILEon 2 Bilirubin Ql (U) Negative Normal NEGATIVE [facility] Comment on above: Performed By: #### P SASC #### [facility] [address] [place] [address] Dr. Shabnam Rae Clarity (U) CLEAR Normal CLEAR [facility] Comment on above: Performed By: #### P SASC #### [facility] [address] [place] [address] Dr. Shabnam Rae Color (U) YELLOW Normal YELLOW [facility] Comment on above: Performed By: #### P SASC #### [facility] [address] [place] [address] Dr. Shabnam Rae ERUAHD A micrscopic examination will be performed if indicated. Normal [facility] Comment on above: Performed By: #### P SASC #### [facility] [address] [place] [address] Dr. Shabnam Rae Glucose Ql (U) Negative Normal NEGATIVE [facility] Comment on above: Performed By: #### P SASC #### [facility] [address] [place] [address] Dr. Shabnam Rae Hemoglobin Ql (U) Negative Normal NEGATIVE [facility] Comment on above: Performed By: #### P SASC #### [facility] [address] [place] [address] Dr. Shabnam Rae Ketones Ql (U) Negative Normal NEGATIVE [facility] Comment on above: Performed By: #### P SASC #### [facility] [address] [place] [address] Dr. Shabnam Rae LEUKOCYTES Negative Normal NEGATIVE [facility] Comment on above: Performed By: #### P SASC #### [facility] [address] [address] [address] Shabnam Rae Nitrite Ql (U) Negative Normal NEGATIVE [facility] Comment on above: Performed By: #### P SASC #### [facility] [address] [place] [address] Dr. Shabnam Rae pH (U) 6.5 [pH] Normal 5-9 [facility] Comment on above: Performed By: #### P SASC #### [facility] [address] [address] [address] Shabnam Rae SPEC GRAVITY 1.010 Normal 1.005-<=1.025 [facility] Comment on above: Performed By: #### P SASC #### [facility] [address] [place] [address] Dr. Shabnam Rae UA PROTEIN Negative Normal NEGATIVE/ TRACE [facility] Comment on above: Performed By: #### P SASC #### [facility] [address] [place] [address] Dr. Shabnam Rae UR MICRO IND NOT INDICATED Normal [facility] Comment on above: Performed By: #### P SASC #### [facility] [address] [place] [address] Dr. Shabnam Rae Urobilinogen Qn (U) 0.2 {Sarai'U}/dL Normal 0.2 - 1. 0 [facility] Comment on above: Performed By: #### P SASC #### [facility] [address] [place] [address] Dr. Shabnam Rae LACTATE/LACTIC ACIDon 2021 Lactate [Moles/Vol] 1.0 mmol/L Normal 0.4-2.0 [facility] Comment on above: Performed By: #### P SASC #### [facility] [address] [place] [address] Dr. Shabnam Rae PROF CHEM 8 (BAS METB)on Anion gap [Moles/Vol] 10.0 mmol/L Normal [facility] Comment on above: Performed By: #### B MP #### [facility] [address] [address] [address] Shabnam Rae Calcium [Mass/Vol] 8.5 mg/dL Normal 8.5-10.1 [facility] Comment on above: Performed By: #### B MP #### [facility] [address] [address] [address] Shabnam Rae Chloride [Moles/Vol] 103 mmol/L Normal 98-107 [facility] Comment on above: Performed By: #### B MP #### [facility] [address] [address] [address] Shabnam Rae CO2 [Moles/Vol] 29.2 mmol/L Normal 21.0-32.0 [facility] Comment on above: Performed By: #### B MP #### [facility] [address] [address] [address] Shabnam Rae Creatinine [Mass/Vol] 1.25 mg/dL Normal 0.70-1.30 [facility] Comment on above: Performed By: #### B MP #### [facility] [address] [address] [address] Shabnam Rae EGFR-AF SOUTH AFRICAN >60 Normal >=60 [facility] Comment on above: Performed By: #### B MP #### [facility] [address] [address] [address] Shabnam Rae EGFR-NON AF SOUTH AFRICAN >60 Normal >=60 [facility] Comment on above: Performed By: #### B MP #### [facility] [address] [address] [address] Shabnam Rae Glucose [Mass/Vol] 132 mg/dL Critically high 74-106 [facility] Comment on above: Performed By: #### B MP #### [facility] [address] [address] [address] Shabnam Rae Potassium [Moles/Vol] 3.2 mmol/L Critically low 3.5-5.1 [facility] Comment on above: Performed By: #### B MP #### [facility] [address] [address] [address] Shabnam Rae Sodium [Moles/Vol] 139 mmol/L Normal 136-145 [facility] Comment on above: Performed By: #### B MP #### [facility] [address] [address] [address] Shabnam Rae Urea nitrogen [Mass/Vol] 19.0 mg/dL Critically high 7.0-18.0 [facility] Comment on above: Performed By: #### B MP #### [facility] [address] [address] [address] Shabnam Rae Urea nitrogen/Creatinine [Mass ratio] 15.2 mg/mg Normal [facility] Comment on above: Performed By: #### B MP #### [facility] [address] [address] [address] Shabnam Rae CERVICAL SPINE 2 OR 3 [facility] 07-06-2019 CERVICAL SPINE 2 OR 3 [facility] Department of Radiology [address] [place] [id number] Patient Name: MATTY GARCES : 1970 Sex: M Age: Race: White Pt. Location: Patient Status: O Ordered Date: 07/06/2019 9:10:00 AM Completed Date: 07/06/2019 09:21 AM Requesting Provider: LUCIANO VIEIRA Attending Provider: LUCIANO VIEIRA Report Copy To: VENUS MENDEZ Signs & Symptoms: M48.02 Spinal stenosis, cervical region I10 History: [place] Comments: , STAT READ , STAT READ , , , Ordering Provider - LUCAINO VIEIRA MD , Exam: CERVICAL SPINE 2 [...] findings. Electronically signed by:Bernice Hoyt. Transcribed by: [email or web address], User Resident: RADHA CHIN Electronically Signed by: BERNICE HOYT @ 07/06/2019 08:52 PM I personally read this/these film(s) with this resident Normal [facility] Comment on above: Order Comment: , STA T READ , STAT READ , , , Ordering Provider - LUCIANO VIEIRA MD , CERVICAL SPINE 2 OR 3 [facility] 04-06-2019 CERVICAL SPINE 2 OR 3 [facility] Department of Radiology [address] [place] [address] Patient Name: MATTY GARCES : [...] Exam: CERVICAL SPINE [address] [facility] CERVICAL SPINE [address] [facility] 04/06/2019 7:28 AM EDT SIGNS AND SYMPTOMS: [...] study. Electronically signed by:Bernice Hoyt. Transcribed by: [email or web address], User Resident: Electronically Signed by: BERNICE HOYT @ 04/06/2019 04:40 PM Normal [facility] Comment on above: Order Comment: AP/LA T, ODONTOID PLEASE DO SWIMMER'S VIEW FOLLOW UP HARDWARE AND ALIGNMENT, S/P ACDF, RECENT FALLS CERVICAL SPINE 2 OR 3 [facility] 02-17-2019 CERVICAL SPINE 2 OR 3 [facility] Department of Radiology [address] [place] [id number] Patient Name: MATTY GARCES : 1970 [...] ALIGNMENT Exam: CERVICAL SPINE [address] [facility] CERVICAL SPINE 2 OR 3 [facility] 02/17/2019 [...] findings. Electronically signed by:Bella King. Transcribed by: [email or web address], User Resident: EMILE TINAJERO Electronically Signed by: BELLA KING @ 02/20/2019 11:53 AM I personally read this/these film(s) with this resident Normal [facility] Comment on above: Order Comment: C-SPI NE 2 OR 3 VIEW POSTOP, EVALUATION HARDWARE AN ALIGNMENT BASIC METABOLIC PANELon 05-2 Calcium [Mass/Vol] 9.2 mg/dL Normal 8.6-10.3 [facility] Comment on above: Order Comment: No: D o not add to previous draw Performed By: #### 5 0103 #### [facility] [address] [place] [address], [place] Chloride [Moles/Vol] 101 mmol/L Normal 98-107 [facility] Comment on above: Order Comment: No: D o not add to previous draw Performed By: #### 5 0103 #### [facility] [address] [place] [address], [place] CO2 [Moles/Vol] 26 mmol/L Normal 21-31 [facility] Comment on above: Order Comment: No: D o not add to previous draw Performed By: #### 5 0103 #### [facility] [address] [place] [address], [facility] Creatinine [Mass/Vol] 1.02 mg/dL Normal 0.70-1.30 [facility] Comment on above: Order Comment: No: D o not add to previous draw Performed By: #### 5 0103 #### [facility] [address] [place] [address], [facility] GFR/1.73 sq M predicted among blacks MDRD (S/P/Bld) [Vol rate/Area] mL/min/{1.73_m2} Normal >60 [facility] Comment on above: Order Comment: No: D o not add to previous draw Performed By: #### 5 0103 #### [facility] [address] [place] [address], [facility] GFR/1.73 sq M predicted among non-blacks MDRD (S/P/Bld) [Vol rate/Area] mL/min/{1.73_m2} Normal >60 [facility] Comment on above: Order Comment: No: D o not add to previous draw Performed By: #### 5 3 #### [facility] [address] [place] [address], [place] Glucose [Mass/Vol] 124 mg/dL High 70-100 [facility] Comment on above: Order Comment: No: D o not add to previous draw Performed By: #### 5 0103 #### [facility] [address] [place] [address], [place] Potassium [Moles/Vol] 3.9 mmol/L Normal 3.5-5.1 [facility] Comment on above: Order Comment: No: D o not add to previous draw Performed By: #### 5 3 #### [facility] [address] [place] [address], [facility] Sodium [Moles/Vol] 137 mmol/L Normal 136-145 [facility] Comment on above: Order Comment: No: D o not add to previous draw Performed By: #### 5 0103 #### [facility] [address] [place] [address], [facility] Urea nitrogen [Mass/Vol] 15 mg/dL Normal 7-25 [facility] Comment on above: Order Comment: No: D o not add to previous draw Performed By: #### 5 0103 #### [facility] [address] [place] [address], [facility] CBC COMPLETE BLOOD COUNTon - Erythrocyte distribution width (RBC) [Ratio] 13.9 % Normal 11.5-15.0 [facility] Comment on above: Order Comment: No: D o not add to previous draw Performed By: #### 5 0103 #### [facility] [address] [place] [address], [facility] Hematocrit (Bld) [Volume fraction] 50.0 % Normal 39.0-50.0 [facility] Comment on above: Order Comment: No: D o not add to previous draw Performed By: #### 5 0103 #### [facility] [address] [place] [address], [facility] Hemoglobin (Bld) [Mass/Vol] 16.0 g/dL Normal 13.0-17.0 [facility] Comment on above: Order Comment: No: D o not add to previous draw Performed By: #### 5 0103 #### [facility] [address] [place] [address], [facility] MCH (RBC) [Entitic mass] 27.5 pg Normal 27.0-33.0 [facility] Comment on above: Order Comment: No: D o not add to previous draw Performed By: #### 5 0103 #### [facility] [address] [place] [address], [facility] MCHC (RBC) [Mass/Vol] 32.0 g/dL Normal 32.0-35.0 [facility] Comment on above: Order Comment: No: D o not add to previous draw Performed By: #### 5 0103 #### [facility] [address] [place] [address], [facility] MCV (RBC) [Entitic vol] 85.9 fL Normal 82.0-98.0 [facility] Comment on above: Order Comment: No: D o not add to previous draw Performed By: #### 5 0103 #### [facility] [address] [facility] [address], [facility] Nucleated RBC/100 WBC (Bld) [Ratio] 0 % Normal 0-0 [facility] Comment on above: Order Comment: No: D o not add to previous draw Performed By: #### 5 0103 #### [facility] [address] [facility] [place] [address], [facility] PLAT CNT 249 10*3/uL Normal 150-400 [facility] Comment on above: Order Comment: No: D o not add to previous draw Performed By: #### 5 0103 #### [facility] [address] [facility] [place] [address], [facility] RBC (Bld) [#/Vol] 5.82 10*6/uL High 4.20-5.70 [facility] Comment on above: Order Comment: No: D o not add to previous draw Performed By: #### 5 0103 #### [facility] [address] [facility] [place] [id number], [facility] WBC (Bld) [#/Vol] 15.85 10*3/uL High 4.00-10.60 The [facility] Comment on above: Order Comment: No: D o not add to previous draw Performed By: #### 5 0103 #### [facility] [address] [facility] [place], [place] [id number] [place] [address] Operative Reporton 9 Operative Report MR#: [id number] I [facility] Pt. Name: Matty Garces Room #: [id number] Discharge Date: Birthdate: 1970 OPERATIVE REPORT DATE OF SURGERY: 01/30/2019 SURGEON: Luciano Vieira M.D. 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 POSTOPERATIVE DIAGNOSIS: Failed instrumentation at C6-7 on the right. MULTINEEDLE SHIRRER: ADENIKE Lugo. ANESTHESIA: Endotracheal, Hogan. PROCEDURES: Redo [...] Vieira M.D. Date Trans: 01/31/2019 02:31 A/sasha [id number] cc: Venus Mendez M.D. [address], [facility] [phone] [place] [facility] CERVICAL SPINE 2 OR 3 [facility] 01-30-2019 CERVICAL SPINE 2 OR 3 [facility] Department of Radiology [address] [place] [phone] Patient Name: MATTY GARCES : 1970 [...] documentation Electronically signed by:Justus Montano. Transcribed by: [email or web address], User Resident: Electronically Signed by: JUSTUS MONTANO @ 01/30/2019 04:18 PM Normal [facility] Comment on above: Order Comment: C6-7 ACDF POC GLUCOSE LABon 01-30-2019 Glucose [Mass/Vol] 106 mg/dL High 70-100 [facility] Comment on above: Performed By: #### 5 0103 #### [facility] [address] *MRSA/MSSA DNA NASALon 01-23 *MRSA/MSSA DNA NASAL Clinical Report: (D ) Specimen: NASAL SWAB Collected: 01/23/2019 15:02 Status: Final Last Updated: 01/23/2019 20:14 MSSA DNA (Final) Methicillin Susceptible Staphylococcus aureus DNA Detected MRSA DNA (Final) No Methicillin Resistant Staphylococcus aureus DNA Detected Normal [facility] Comment on above: Performed By: #### 5 0103 #### [facility] [address] APTTon 01-23-2019 aPTT Coag (Bld) [Time] 35.4 s High 25.0-35.0 The [facility] Comment on above: Result Comment: [...] THIS PURPOSE. Performed By: #### 5 73, [id number] #### [facility] [address] [place] [address], [facility] BASIC METABOLIC PANELon 05- Calcium [Mass/Vol] 9.5 mg/dL Normal 8.6-10.3 [facility] Comment on above: Performed By: #### 5 Al, 99789 #### [facility] [address] [place] [address], [facility] Chloride [Moles/Vol] 101 mmol/L Normal 98-107 [facility] Comment on above: Performed By: #### 5 7306, [id number] #### [facility] [address] [place] [address], [facility] CO2 [Moles/Vol] 29 mmol/L Normal 21-31 [facility] Comment on above: Performed By: #### 5 73, [id number] #### [facility] [address] [place] [address], [facility] Creatinine [Mass/Vol] 1.08 mg/dL Normal 0.70-1.30 [facility] Comment on above: Performed By: #### 5 73, [id number] #### [facility] [address] [place] [address], [facility] GFR/1.73 sq M predicted among blacks MDRD (S/P/Bld) [Vol rate/Area] mL/min/{1.73_m2} Normal >60 The [facility] Comment on above: Performed By: #### 5 73, 83558 #### [facility] [address] [place] [address], [facility] GFR/1.73 sq M predicted among non-blacks MDRD (S/P/Bld) [Vol rate/Area] mL/min/{1.73_m2} Normal >60 [facility] Comment on above: Performed By: #### 5 7307, [id number] #### [facility] [address] [facility] [place] [address], [facility] Glucose [Mass/Vol] 87 mg/dL Normal 70-100 [facility] Comment on above: Performed By: #### 5 73, [id number] #### [facility] [address] [place] [address], [facility] Potassium [Moles/Vol] 4.0 mmol/L Normal 3.5-5.1 The [facility] Comment on above: Performed By: #### 5 7307, 03147 #### [facility] [address] [facility]. [address] Sodium [Moles/Vol] 137 mmol/L Normal 136-145 The [facility] Comment on above: Performed By: #### 5 7307, 99811 #### [facility] [address] [place] [address], [facility] Urea nitrogen [Mass/Vol] 12 mg/dL Normal 7-25 The [facility] Comment on above: Performed By: #### 5 7307, 88161 #### [facility] [address] [facility] [place] [address], [facility] CBC W/DIFFon 01-23-2019 ABS BASOPHILS 0.1 10*3/uL Normal 0.0-0.2 The [facility] Comment on above: Performed By: #### 5 7307, 16578 #### [facility] [address] [facility] [place] [address], [facility] ABS IMM GRANS 0.0 10*3/uL Normal 0.0-0.2 The [facility] Comment on above: Performed By: #### 5 7306, 08967 #### [facility] [address] [place] [address], [facility] ABS NEUTROPHILS 5.3 10*3/uL Normal 1.6-7.6 [facility] Comment on above: Performed By: #### 5 7306, 90586 #### [facility] [address] [place] [address], [place] Basophils/100 WBC (Bld) 0.9 % Normal 0.0-1.0 The [facility] Comment on above: Performed By: #### 5 7306, 07578 #### [facility] [address] [place] [address], [place] Eosinophils (Bld) [#/Vol] 0.2 10*3/uL Normal 0.0-0.5 The [facility] Comment on above: Performed By: #### 5 7306, 32050 #### [facility] [address] [place] [address], [facility] Eosinophils/100 WBC (Bld) 2.3 % Normal 0.0-6.0 The [facility] Comment on above: Performed By: #### 5 7306, 58282 #### [facility] [address] [place] [address], [place] Erythrocyte distribution width (RBC) [Ratio] 13.8 % Normal 11.5-15.0 The [facility] Comment on above: Performed By: #### 5 7306, 55250 #### [facility] [address] [place] [address], [place] Hematocrit (Bld) [Volume fraction] 49.6 % Normal 39.0-50.0 The [facility] Comment on above: Performed By: #### 5 7306, 95261 #### [facility] [address] [place] [address], [place] Hemoglobin (Bld) [Mass/Vol] 16.4 g/dL Normal 13.0-17.0 The [facility] Comment on above: Performed By: #### 5 7306, 65816 #### [facility] [address] [place] [address], [facility] IMMATURE GRANS 0.5 % Normal 0.0-1.0 The [facility] Comment on above: Performed By: #### 5 7306, 80624 #### [facility] [address] [facility] [place] [address], [facility] Lymphocytes (Bld) [#/Vol] 1.2 10*3/uL Normal 1.2-4.0 The [facility] Comment on above: Performed By: #### 5 7306, 53247 #### [facility] [address] [place] [address], [facility] Lymphocytes/100 WBC (Bld) 16.6 % Low 20.0-45.0 The [facility] Comment on above: Performed By: #### 7306, 97006 #### [facility] [address] [facility] [place] [address], [facility] MCH (RBC) [Entitic mass] 27.8 pg Normal 27.0-33.0 The [facility] Comment on above: Performed By: #### 7306, 96225 #### [facility] [address] [facility] [place] [address], [facility] MCHC (RBC) [Mass/Vol] 33.1 g/dL Normal 32.0-35.0 The [facility] Comment on above: Performed By: #### 5 7306, 41465 #### [facility] [address] [facility] [place] [address], [facility] MCV (RBC) [Entitic vol] 84.2 fL Normal 82.0-98.0 The [facility] Comment on above: Performed By: #### 5 7306, 34619 #### [facility] [address] [place] [address], [facility] Monocytes (Bld) [#/Vol] 0.7 10*3/uL Normal 0.1-1.0 The [facility] Comment on above: Performed By: #### 5 7306, 01228 #### [facility] [address] [place] [id number], [place] MONOS 9.4 % Normal 5.0-12.0 The [facility] Comment on above: Performed By: #### 5 7306, 10967 #### [facility] [address] [place] [id number], [facility] Neutrophils/100 WBC (Bld) 70.3 % Normal 40.0-72.0 The [facility] Comment on above: Performed By: #### 5 7306, 21810 #### [facility] [address] [place] [address], [facility] Nucleated RBC/100 WBC (Bld) [Ratio] 0 % Normal 0-0 The [facility] Comment on above: Performed By: #### 5 Al, 51681 #### [facility] [address] [place] [address], [facility] PLAT CNT 235 10*3/uL Normal 150-400 The [facility] Comment on above: Performed By: #### 5 7306, 99453 #### [facility] [address] [place] [address], [facility] RBC (Bld) [#/Vol] 5.89 10*6/uL High 4.20-5.70 [facility] Comment on above: Performed By: #### 5 7306, 82242 #### [facility] [address] [place] [id number], [place] WBC (Bld) [#/Vol] 7.48 10*3/uL Normal 4.00-10.60 [facility] Comment on above: Performed By: #### 5 7306, 66159 #### [facility] [address] PROTHROMBIN TIMEon 9 INR Coag (PPP) [Relative time] 1.12 {INR} Normal 0.91-1.16 [facility] Comment on above: Result Comment: ACCC P [...] CHEST 1995;108:231S-246S. Performed By: #### 5 7307, 21362 #### [facility] [address] [facility] [facility] PT Coag (PPP) [Time] 14.4 s Normal 12.3-14.8 The [facility] Comment on above: Result Comment: ALL RESULTS MUST BE INTERPRETED WITH RESPECT TO BLOOD DRAWING ARTIFACT OR DILUTION ERROR OF ANTICOAGULANT AT THE TIME OF SAMPLING. Performed By: #### 5 7307, 10420 #### [facility] [address] [place] [address], [facility] TYPE AND SCREENon 01-23-2019 ABO INTERPRETATION A Normal [facility] Comment on above: Performed By: #### 5 7307, 27514 #### [facility] [address] [place] [address], [facility] RH INTERPRETATION Positive Normal [facility] Comment on above: Performed By: #### 5 7307, 80192 #### [address] [address], [facility] CT 3D CERVICAL SPINE WO CONT RASTon 01-12-2019 CT 3D CERVICAL SPINE WO CONTRAST [facility] Department of Radiology [address] [place] [id number] Patient Name: MATTY GARCES : 1970 Sex: M Age: Race: White Pt. Location: Patient Status: D Ordered Date: 01/10/2019 2:15:00 PM Completed Date: 01/12/2019 10:32 AM Requesting Provider: LUCIANO VIEIRA Attending Provider: LUCIANO VIEIRA Report Copy To: VENUS MENDEZ Signs & Symptoms: M48.02 Spinal stenosis, cervical region I10 History: [place] para auth # [id number] 01/10/19-02/09/19 [id number] *er Comments: Exam: CT 3D CERVICAL SPINE [...] incomplete Electronically signed by:Ten Garland. Transcribed by: [email or web address], User Resident: Electronically Signed by: TEN GARLAND @ 01/13/2019 09:18 AM Normal The [facility] CERVICAL SPINE 2 OR 3 [facility] 01-05-2019 CERVICAL SPINE 2 OR 3 [facility] Department of Radiology [address] [place] [phone] Patient Name: MATTY GARCES : 1970 [...] findings. Electronically signed by:Ten Garland. Transcribed by: [email or web address], User Resident: SHELLY DELA CRUZ Electronically Signed by: TEN GARLAND @ 01/05/2019 12:37 PM I personally read this/these film(s) with this resident Normal The [facility] Comment on above: Order Comment: , , = ========= , Ordering Provider - LUCIANO VIEIRA MD , CERVICAL SPINE 2 OR 3 VWSon 08-30-2018 CERVICAL SPINE 2 OR 3 VWS [facility] Department of Radiology [address] [place] [phone] Patient Name: MATTY GARCES : 1970 Sex: M Age: Race: White Pt. Location: Patient Status: O Ordered Date: 08/30/2018 9:35:00 AM Completed Date: 08/30/2018 09:43 AM Requesting Provider: LUCIANO VIEIRA Attending Provider: LUCIANO VIEIRA Report Copy To: VENUS MENDEZ Signs & Symptoms: M50.90 Cervical disc disorder, unsp, unspecified cervical region I10 History: [place] Comments: , POST OP XRAY AP/LAT ONLY [...] findings. Electronically signed by:Bella King. Transcribed by: [email or web address], User Resident: RYAN HEAD Electronically Signed by: BELLA KING @ 08/30/2018 05:45 PM I personally read this/these film(s) with this resident Normal The [facility] Comment on above: Order Comment: , POS T OP XRAY AP/LAT ONLY , POST OP XRAY AP/LAT ONLY , , , Ordering Provider - LUCIANO VIEIRA MD , Operative Reporton 8 Operative Report MR#: [id number] I [facility] Pt. Name: Matty Garces Room #: [id number] Discharge Date: Birthdate: 1970 OPERATIVE REPORT DATE OF SURGERY: 08/17/2018 SURGEON: Luciano Vieira M.D. PREOPERATIVE DIAGNOSIS: Herniated cervical disk at C6-7. POSTOPERATIVE DIAGNOSIS: Herniated cervical disk at C6-7. MULTINEEDLE SHIRRER: ADENIKE Larios. ANESTHESIA: Endotracheal, Braida. PROCEDURE: Anterior [...] Vieira M.D. Date Trans: 08/17/2018 11:25 P/mmo [id number] cc: Venus Mendez M.D. [address], [place] [address] [place] The [facility] CERVICAL SPINE 2 OR 3 [facility] 08-17-2018 CERVICAL SPINE 2 OR 3 [facility] Department of Radiology [address] [place] [phone] Patient Name: MATTY GARCES : 1970 Sex: M Age: Race: White Pt. Location: Patient Status: I Ordered Date: 08/17/2018 8:30:00 AM Completed Date: 08/17/2018 11:49 AM Requesting Provider: LUCIANO VIEIRA Attending Provider: LUCIANO IVEIRA Report Copy To: Signs & Symptoms: C6-7 [...] findings. Electronically signed by:Bernice Hoyt. Transcribed by: [email or web address], User Resident: EMILE TINAJERO Electronically Signed by: BERNICE HOTY @ 08/18/2018 01:06 PM I personally read this/these film(s) with this resident Normal The [facility] Comment on above: Order Comment: C6-7 ACDF with POC GLUCOSE LABon 08-17-2018 Glucose [Mass/Vol] 113 mg/dL High 70-100 The [facility] Comment on above: Performed By: #### 8 5499 #### [facility] [address] [place] [address], [facility] RBC'S 2 UNITSon 08-17-2018 CROSSMATCH INTERP 1 COMP Normal [facility] Comment on above: Performed By: #### 8 6002 #### [facility] [address] [place] [address], [place] CROSSMATCH INTERP 2 COMP Normal The [facility] Comment on above: Performed By: #### 8 6002 #### [facility] [address] [place] [address], [facility] PRODUCT CODE 1 E0336 Normal [facility] Comment on above: Performed By: #### 8 6002 #### [facility] [address] [place] [address], [facility] PRODUCT CODE 2 E0336 Normal [facility] Comment on above: Performed By: #### 8 6002 #### [facility] [address] [place] [address], [facility] PRODUCT STATUS 1 RE Normal The [facility] Comment on above: Result Comment: Resu lt changed by IF on 08/20/2018 07:48. The previous value was XM. Performed By: #### 8 6002 #### [facility] [address] [place] [address], [facility] PRODUCT STATUS 2 RE Normal The [facility] Comment on above: Result Comment: Resu lt changed by IF on 08/20/2018 07:48. The previous value was XM. Performed By: #### 8 6002 #### [facility] [address] [place] [address], [place] UNIT ABO 1 A Normal The [facility] Comment on above: Performed By: #### 8 6002 #### [facility] [address] [place] [address], [place] UNIT ABO 2 A Normal The [facility] Comment on above: Performed By: #### 8 6002 #### [facility] [address] [place] [address], [place] UNIT ID 1 [id number] Normal The [facility] Comment on above: Performed By: #### 8 6002 #### [facility] [address] UNIT ID 2 [id number] Normal The [facility] Comment on above: Performed By: #### 8 6002 #### [facility] [address] [facility]. [address] UNIT RH 1 Positive Normal [facility] Comment on above: Performed By: #### 8 6002 #### [facility] [address] [facility] [address] UNIT RH 2 Positive Normal [facility] Comment on above: Performed By: #### 8 6002 #### [facility] [address] [facility]. [address] *MRSA/MSSA CULTUREon 018 *MRSA/MSSA CULTURE Clinical Report: (D) Specimen: NASAL SWAB Collected: 08/02/2018 12:37 Status: Final Last Updated: 08/03/2018 14:26 ISO (Final) No Methicillin Resistant Staphylococcus aureus Isolated (MRSA) ISO (Final) Methicillin Sensitive Staphylococcus aureus (MSSA) Isolated Normal The [facility] Comment on above: Performed By: #### 3 1302 #### [facility] [address] [facility]. [address] APTTon 08-02-2018 aPTT Coag (Bld) [Time] 31.2 s Normal 25.0-35.0 [facility] Comment on above: Result Comment: ALL RESULTS [...] THIS PURPOSE. Performed By: #### 5 7307, 87380 #### [facility] [address] BASIC METABOLIC PANELon 07-15 Calcium [Mass/Vol] 9.4 mg/dL Normal 8.6-10.3 [facility] Comment on above: Performed By: #### 0 0071 #### [facility] [address] [place] [address], [place] Chloride [Moles/Vol] 103 mmol/L Normal 98-107 The [facility] Comment on above: Performed By: #### 0 0071 #### [facility] [address] [place] [address], [place] CO2 [Moles/Vol] 29 mmol/L Normal 21-31 [facility] Comment on above: Performed By: #### 0 0071 #### [facility] [address] [place] [address], [place] Creatinine [Mass/Vol] 1.06 mg/dL Normal 0.70-1.30 The [facility] Comment on above: Performed By: #### 0 0071 #### [facility] [address] [place] [address], [place] GFR/1.73 sq M predicted among blacks MDRD (S/P/Bld) [Vol rate/Area] mL/min/{1.73_m2} Normal >60 The [facility] Comment on above: Performed By: #### 0 0071 #### [facility] [address] [place] [address], [place] GFR/1.73 sq M predicted among non-blacks MDRD (S/P/Bld) [Vol rate/Area] mL/min/{1.73_m2} Normal >60 The [facility] Comment on above: Performed By: #### 0 0071 #### [facility] [address] [place] [address], [place] Glucose [Mass/Vol] 84 mg/dL Normal 70-100 [facility] Comment on above: Performed By: #### 0 0071 #### [facility] [address] [place] [address], [place] Potassium [Moles/Vol] 4.0 mmol/L Normal 3.5-5.1 The [facility] Comment on above: Performed By: #### 0 0071 #### [facility] [address] [facility] [place] [address], [facility] Sodium [Moles/Vol] 140 mmol/L Normal 136-145 [facility] Comment on above: Performed By: #### 0 0071 #### [facility] [address] Urea nitrogen [Mass/Vol] 20 mg/dL Normal 7-25 The [facility] Comment on above: Performed By: #### 0 1 #### [facility] [address] CBC W/DIFFon 08-02-2018 ABS BASOPHILS 0.1 10*3/uL Normal 0.0-0.2 [facility] Comment on above: Performed By: #### 5 3 #### [facility] [address] ABS IMM GRANS 0.1 10*3/uL Normal 0.0-0.2 [facility] Comment on above: Performed By: #### 5 102 #### [facility] [address] ABS NEUTROPHILS 4.2 10*3/uL Normal 1.6-7.6 The [facility] Comment on above: Performed By: #### 5 102 #### [facility] [address] [place] [address], [facility] Basophils/100 WBC (Bld) 1.3 % High 0.0-1.0 The [facility] Comment on above: Performed By: #### 5 102 #### [facility] [address] [place] [address], [facility] Eosinophils (Bld) [#/Vol] 0.1 10*3/uL Normal 0.0-0.5 The [facility] Comment on above: Performed By: #### 5 0103 #### [facility] [address] [facility] [place] [address], [facility] Eosinophils/100 WBC (Bld) 2.0 % Normal 0.0-6.0 The [facility] Comment on above: Performed By: #### 5 0103 #### [facility] [address] [facility] [place] [address], [facility] Erythrocyte distribution width (RBC) [Ratio] 13.6 % Normal 11.5-15.0 The [facility] Comment on above: Performed By: #### 5 0103 #### [facility] [address] [facility] [place] [address], [facility] Hematocrit (Bld) [Volume fraction] 44.3 % Normal 39.0-50.0 The [facility] Comment on above: Performed By: #### 5 0103 #### [facility] [address] [facility] [place] [address], [facility] Hemoglobin (Bld) [Mass/Vol] 15.1 g/dL Normal 13.0-17.0 The [facility] Comment on above: Performed By: #### 5 0103 #### [facility] [address] [facility] [place] [address], [facility] IMMATURE GRANS 1.1 % High 0.0-1.0 [facility] Comment on above: Performed By: #### 5 0103 #### [facility] [address] [facility] [place] [address], [facility] Lymphocytes (Bld) [#/Vol] 1.2 10*3/uL Normal 1.2-4.0 The [facility] Comment on above: Performed By: #### 5 3 #### [facility] [address] [place] [id number], [facility] Lymphocytes/100 WBC (Bld) 18.3 % Low 20.0-45.0 The [facility] Comment on above: Performed By: #### 5 0103 #### [facility] [address] [place] [address], [facility] MCH (RBC) [Entitic mass] 29.0 pg Normal 27.0-33.0 The [facility] Comment on above: Performed By: #### 5 0103 #### [facility] [address] [place] [place] [address], [facility] MCHC (RBC) [Mass/Vol] 34.1 g/dL Normal 32.0-35.0 The [facility] Comment on above: Performed By: #### 5 3 #### [facility] [address] [facility] [place] [address], [facility] MCV (RBC) [Entitic vol] 85.0 fL Normal 82.0-98.0 The [facility] Comment on above: Performed By: #### 5 0103 #### [facility] [address] [facility] [place] [address], [facility] Monocytes (Bld) [#/Vol] 0.7 10*3/uL Normal 0.1-1.0 The [facility] Comment on above: Performed By: #### 5 3 #### [facility] [address] [place] [place] [address], [facility] MONOS 11.1 % Normal 5.0-12.0 The [facility] Comment on above: Performed By: #### 5 3 #### [facility] [address] [facility] [address] Neutrophils/100 WBC (Bld) 66.2 % Normal 40.0-72.0 The [facility] Comment on above: Performed By: #### 5 3 #### [facility] [address] [place] [address], [facility] Nucleated RBC/100 WBC (Bld) [Ratio] 0 % Normal 0-0 The [facility] Comment on above: Performed By: #### 5 0103 #### [facility] [address] PLAT CNT 179 10*3/uL Normal 150-400 The [facility] Comment on above: Performed By: #### 5 0103 #### [facility] [address] RBC (Bld) [#/Vol] 5.21 10*6/uL Normal 4.20-5.70 [facility] Comment on above: Performed By: #### 5 0103 #### [facility] [address] [place] [address], [facility] WBC (Bld) [#/Vol] 6.39 10*3/uL Normal 4.00-10.60 [facility] Comment on above: Performed By: #### 5 0103 #### [address] CERVICAL SPINE 4 OR 5 VIEWSo n 08-02-2018 CERVICAL SPINE 4 OR 5 VIEWS [facility] Department of Radiology [address] [place] [phone] Patient Name: MATTY GARCES : 1970 Sex: M Age: Race: White Pt. Location: Patient Status: D Ordered Date: 08/02/2018 1:05:00 PM Completed Date: 08/02/2018 01:29 PM Requesting Provider: LUCIANO VIEIRA Attending Provider: LUCIANO VIEIRA Report Copy To: VENUS MENDEZ Signs & Symptoms: Z01.89 Encounter for other specified special examinations I10 History: [place] Comments: , PREOP XRAY AP/LAT \EANDE\ FLEX/EX [...] findings. Electronically signed by:Bella King. Transcribed by: [email or web address], User Resident: EMILE TINAJERO Electronically Signed by: BELLA KING @ 08/03/2018 11:58 AM I personally read this/these film(s) with this resident Normal The [facility] Comment on above: Order Comment: , PRE OP XRAY AP/LAT \EANDE\ FLEX/EX , PREOP XRAY AP/LAT \EANDE\ FLEX/EX , , , Ordering Provider - LUCIANO VIEIRA MD , PROTHROMBIN TIMEon 8 INR Coag (PPP) [Relative time] 1.15 {INR} Normal 0.91-1.16 [facility] Comment on above: Result Comment: ACCC P [...] CHEST 1995;108:[id number]. Performed By: #### 5 [id number], [id number] #### [facility] [employer] [address] PT Coag (PPP) [Time] 14.7 s Normal 12.3-14.8 [facility] Comment on above: Result Comment: ALL RESULTS MUST BE INTERPRETED WITH RESPECT TO BLOOD DRAWING ARTIFACT OR DILUTION ERROR OF ANTICOAGULANT AT THE TIME OF SAMPLING. Performed By: #### 5 [id number], [id number] #### [facility] [employer] [address] TYPE AND SCREENon 08-02-2018 ABO INTERPRETATION A Normal [facility] Comment on above: Order Comment: 2 uni ts 2 units 2 units 2 units 2 units Performed By: #### 6 [id number] #### [facility] [address] [place] [address], [facility] RH INTERPRETATION Positive Normal [facility] Comment on above: Order Comment: 2 uni ts 2 units 2 units 2 units 2 units Performed By: #### 6 [id number] #### [facility] [address] [place] [address], [facility] URINALYSIS REFLEXon 08-02-20 Appearance (U) CLEAR Normal CLEAR [facility] Comment on above: Performed By: #### 3 0965 #### [facility] [address] [place] [address], [facility] Bilirubin [Mass/Vol] Negative Normal NEGATIVE The [facility] Comment on above: Performed By: #### 3 0965 #### [facility] [address] [place] [address], [facility] BLOOD Negative Normal NEGATIVE The [facility] Comment on above: Performed By: #### 3 [id number] #### [facility] [address] [place] [address], [facility] Color (U) YELLOW Normal YELLOW The [facility] Comment on above: Performed By: #### 3 [id number] #### [facility] [address] [place] [address], [facility] Glucose [Mass/Vol] 150 mg/dL Abnormal NEGATIVE [facility] Comment on above: Performed By: #### 3 [id number] #### [facility] [address] [place] [address], [facility] KETONE Negative Normal NEGATIVE The [facility] Comment on above: Performed By: #### 3 [id number] #### [facility] [address] [place] [address], [facility] [place] Negative Normal NEGATIVE The [facility] Comment on above: Performed By: #### 3 0965 #### [facility] [address] [place] [address], [place] MICRO NOT DONE negative chemical reactions unless requested in original order Normal The [facility] Comment on above: Performed By: #### 3 [id number] #### [facility] [address] [place] [address], [facility] Nitrite Ql (U) Negative Normal NEGATIVE The [facility] Comment on above: Performed By: #### 3 0965 #### [facility] [address] [place] [address], [facility] pH (Bld) 5.0 Normal 5.0-8.0 [facility] Comment on above: Performed By: #### 3 0965 #### [facility] [address] [facility] [place] [address], [facility] Protein (U) [Mass/Vol] Negative Normal NEGATIVE The [facility] Comment on above: Performed By: #### 3 0965 #### [facility] [address] SPEC GRAV 1.024 High 1.015-1.020 The [facility] Comment on above: Performed By: #### 3 0965 #### [facility] [address] Vital Signs Date Time Vital Sign Value Performing Clinician Facility 07-03-2024 14:45-0400 Body height 188 cm Rubén Geiger MD Work Phone: [facility] 07-03-2024 14:45-0400 Body mass index (BMI) [Ratio] 37.62 kg/m2 Rubén Geiger MD Work Phone: [facility] 07-03-2024 14:45-0400 Body weight 132.9 kg Rubén Geiger MD Work Phone: [facility] 02-25-2022 10:30-0400 Blood Pressure Location Viola Grullon [facility] 02-25-2022 10:30-0400 Diastolic blood pressure 107 mm[Hg] Viola Lue [facility] 02-25-2022 10:30-0400 Heart rate 74 /min Viola Lue [facility] 02-25-2022 10:30-0400 Respiratory rate 16 /min Viola Lue [facility] 02-25-2022 10:30-0400 Systolic blood pressure 157 mm[Hg] Viola Lue [facility] Encounters Encounter Date Encounter Type Care Provider Facility Start: 07-04-2024 End: 07-05-2024 Telephone encounter Rubén Geiger MD Work Phone: [facility] [address] Start: 07-03-2024 End: 07-03-2024 Office outpatient visit 25 minutes Rubén Geiger MD Work Phone: [facility] Comment on above: Excessive daytime sl eepiness (Primary Dx); Obstructive sleep apnea; Primary insomnia; Cubital tunnel syndrome on right Start: 07-03-2024 End: 07-03-2024 ambulatory RUBÉN GEIGER Not Available Start: 07-03-2024 End: 07-03-2024 Bamboo flowsheet Rubén Geiger MD Work Phone: [facility] Start: 07-03-2024 End: 07-03-2024 Bamboo flowsheet Rubén Geiger MD Work Phone: [facility] Start: 05-10-2024 End: 05-11-2024 Refill Rubén Geiger MD Work Phone: [facility] Comment on above: Primary insomnia Start: 03-27-2024 End: 03-27-2024 ambulatory RUBÉN Aden GEIGER Not Available Start: 01-10-2024 End: 01-10-2024 ambulatory VALENCIA DE LEÓN Not Available Start: 01-03-2024 End: 01-03-2024 [facility] Work Phone: Start: 01-03-2024 End: 01-03-2024 Departed Referred DPM Trey [facility] Work Phone: [facility] Start: 12-29-2023 End: 12-29-2023 ambulatory RUBÉN Aden GEIGER Not Available Start: 11-29-2023 End: 11-30-2023 ambulatory Andisai Faustitis Facility:[facility] Start: 10-18-2023 End: 10-19-2023 ambulatory Diallo Faustitis Facility:[facility] Start: 09-27-2023 End: 09-27-2023 ambulatory RUBÉN GEIGER Not Available Start: 08-30-2023 End: 08-31-2023 ambulatory Andikeus Juanytjulianneas Christianneitis Facility:[facility] Start: 07-12-2023 End: 07-13-2023 ambulatory Andikeus Juanytautprasanna Faustitis Facility:[facility] Start: 06-14-2023 End: 06-15-2023 ambulatory Andikeus Juanytautprasanna Faustitis Facility:[facility] Start: 12-06-2022 End: 12-06-[address] VENUS MENDEZ . Facility: Start: 12-05-2022 Encounter for genera l adult medical examination without abnormal findings DR VENUS MENDEZ . [facility] Start: 12-01-2022 End: 12-02-[address] [...] encounter procedure Viola Grullon [facility] Start: 01-04-2022 End: 01-05-[address] VENUS MENDEZ . Facility: Start: 01-30-2019 End: 02-01-2019 Evaluation and management of inpatient PROVIDER UNKNOWN Facility:[facility] Start: 08-17-2018 End: 08-18-2018 Patient encounter procedure PROVIDER UNKNOWN Facility:[facility] Procedures Date Procedure Procedure Detail Performing Clinician Start: 12-01-[address] FRANKLIN MENDEZ . Comment on above: Performed By: #### P [facility] #### [facility] [address] [place] [address] Dr. Shabnam Rae Start: 01-30-2019 FUSION CERV JT W INT BD FUS DEV, ANT APPR A COL, OPEN [facility] Start: 01-30-2019 REMOVAL OF INT FIX F ROM CERVCAL VERTEBRA, OPEN APPROACH [facility] Start: 01-23-2019 Antibody screen PROVIDE R UNKNOWN Comment on above: Performed By: #### 5 [id number], [address] #### [address] Start: 08-17-2018 ANESTH SPINE CORD SURGERY [...] Performed By: #### 6 2586 #### [facility] [address] [address] Start: 02-08-1998 H/O: vasectomy History of vasectomy Rubén Geiger MD Work Phone: Colonoscopy Viola Thrasherlucy Hemorrhoids (disorder) Viola Grullon Hernia of abdominal cavity (disorder) Viola Grullon Tonsillectomy Viola Grullon Plan of Treatment Date Care Activity Detail Author Start: 10-04-2024 End: 10-04-2024 Patient encounter procedure 10/04/2024 2:20 PM EST Office Visit [facility] [address] [facility] [address] [place] [address] Rubén Geiger MD [address] [facility] [address] [address] [facility] Start: 07-03-2024 End: 07-03-2024 Patient encounter procedure [facility] Comment on above: Arrived Start: 05-14-2024 Influenza vaccination Influenza Vacc ine (#1) [facility] Start: 1970 Screening for malign ant neoplasm of colon [facility] Immunizations Immunization Date Immunization Notes Care Provider Fa cility 07-06-2023 influenza virus vacc ine, unspecified formulation Rubén Geiger MD Work Phone: [facility] Payers Date Payer Category Payer Self-pay [id number] 2022 Medicaid [id number] 2022 Medicaid [id number] 2022 Unknown 1970 Unknown [id number] 2.16.8 40.1.719934.3.579.2.647 1970 Unknown [id number] 2.16.8 40.1.854422.3.579.2.647 1970 Unknown [id number] 2.16.84 0.1.138244.3.579.2.593 1970 Unknown [id number] 2.16.84 0.1.455947.3.579.2.593 1969 Unknown [id number] 2.16.84 0.1.159350.3.579.2.593 1969 Unknown [id number] 2.16.84 0.1.498632.3.579.2.593 1969 Unknown [id number] 2.16.84 0.1.330347.3.579.2.593 1969 Unknown [id number] 2.16.84 0.1.139499.3.579.2.593 1969 Unknown [id number] 2.16. 840.1.315074.3.579.2.196 1969 Unknown [id number] 2.16. 840.1.259991.3.579.2.196 1969 Unknown [id number] 2.16. 840.1.452839.3.579.2.196 1969 Unknown [id number] 2.16. 840.1.677078.3.579.2.196 1969 Unknown [id number] 2.16. 840.1.052130.3.579.2.196 1969 Unknown [id number] 2.16.84 0.1.245726.3.579.2.1259 1969 Unknown [id number] 2.16.84 0.1.915764.3.579.2.1259 1969 Unknown [id number] 2.16.84 0.1.636176.3.579.2.1259 1969 Unknown [id number] 2.16.84 0.1.998068.3.579.2.1259 1969 Unknown [id number] 2.16.84 0.1.378518.3.579.2.1259 1969 Unknown [id number] 2.16.84 0.1.281295.3.579.2.1259 1959 Unknown [id number] Unknown [id number] Unknown [id number] 2.16.8 40.1.002911.3.579.2.531 Social History Date Type Detail Facility Tobacco smoking status No Smokin g Status Entered [facility] Start: 03-27-2024 End: 07-03-2024 Sex Assigned At Male [facility] Start: 05-15-2018 Tobacco smoking stat [facility] Ex-smoker (finding) [facility] Start: 1970 Sex Assigned At Male [facility] Start: 03-11-2023 Tobacco smoking stat [facility] Never smoked tobacco [facility] Start: 03-11-2023 Tobacco use and exposure Smokeless tobacco non-user [facility] Start: 03-27-2024 End: 07-03-2024 Alcoholic beverage intake Ex-drinker (finding) [facility] Start: 03-27-2024 End: 07-03-2024 History of Social function [facility] Start: 1970 Sex assigned at Not on file [facility] Functional Status Date Assessment Result Facility 02-25-2022 Functional Status N/A [facility] Clinical Notes 02-25-2022 to 07-04-2024 Telephone Encounter - Nita Anthony - 07/04/2024 4:10 PM EDTTelephone Encounter - Nita Anthony - 07/04/2024 4:10 PM Darcy Geiger MD - 07/03/2024 2:40 PM EDT Note Date & Type Note Facility 07-04-2024 Telephone encounter Note left message regarding prescriptions earlier today and not being at pharmacy. I did call back and spoke to advising they were sent this afternoon. had mentioned Dr. Geiger was also going to start a Vitamin B to help boost energy in the morning. [facility] [place]. [facility] 07-04-2024 Miscellaneous Notes left message regarding prescriptions earlier today and not being at pharmacy. I did call back and spoke to advising they were sent this afternoon. had mentioned Dr. Geiger was also going to start a Vitamin B to help boost energy in the morning. [facility] [place]. documented in this encounter [facility] [...] 1 mg, Oral, 2 times daily HYDROcodone-acetaminophen (Axtell) 5-325 MG tablet hydrOXYzine pamoate (Vistaril) 25 [...] reflexes: Alycia's absent. Ankle clonus absent. Coordination Sbmsoy-ag-qqtr, rapid alternating movements and xpmh-gh-tdaa normal bilaterally without dysmetria. Gait Normal casual, [...] this encounter [facility] 06-09-2023 Note [facility] Continue GDMT- Diuretic therapy Monitor daily weights, I&O, fluid restriction 1.5-2L/day, renal function and electrolytes- [facility] 03-26-2022 Note PROCEDURE: XR FOOT L [...] [place] Date: 2022-03-26 10:47 [facility] 02-25-2022 Hospital Discharg e instructions Patient [...] Watch the hydrocele for any changes. Take yzmb-dvw-bldtldw and prescription medicines only as told by [...] 02/17/2011 Document Revised: 09/10/2018 Document Reviewed: 09/10/2018 [employer] Patient Education 2020 [employer]. Follow Up Care 01/28/2022 10:36:35 With:Mitchel DELGADO, [place] Gregorio, URO Address: When: Unknown [facility] Evaluation + Plan note No data available for this section [facility] Evaluation note No assessment inform ation available [facility] Work Phone: Evaluation note Diagnosis Excessive daytime sleepiness- Primary Obstructive sleep apnea Obstructive sleep apnea (adult) (pediatric) Primary insomnia Persistent disorder of initiating or maintaining sleep Cubital tunnel syndrome on right [facility] Diagnosis Excessive daytime sleepiness- Primary documented [facility] Diagnosis Primary insomnia Persistent disorder of initiating or maintaining sleep documented in this encounter [facility] No data available for this section [facility] Summary Purpose Family History No Family History Records FoundNo Family History Records FoundNo Family History Records FoundNo Family History Records FoundNo Family History Records FoundNo Family History Records FoundNo Family History Records Found Advance Directives Advance Directive Response Recorded Date/ Time Advance Directives No May 12:42pm Hospital Course Note MR#: [id number] [facility] Pt. Name: Matty Garces Admitted: 01/30/2019 Discharged: [...] and content) DATE CREATED AUTHOR 07/19/2019 [facility] DATE CREATED AUTHOR AUTHOR'S ORGANIZ ATION 02/27/2022 [facility] DATE CREATED AUTHOR AUTHOR'S ORGANIZ ATION 12/08/2022 [facility] DATE CREATED AUTHOR AUTHOR'S ORGANIZ ATION 06/17/2023 [facility] DATE CREATED AUTHOR AUTHOR'S ORGANIZ ATION 12/03/2023 [facility] DATE CREATED AUTHOR AUTHOR'S ORGANIZ ATION 03/28/2024 [facility] DATE CREATED AUTHOR AUTHOR'S ORGANIZ ATION 07/05/2024 [facility] EPIC Care Team (unrecognized sect ion and content) Team Status: Inactive Member Role Status Dates Trey Vallejo DPM MS Attending Provider Active Start: January 03, 2024 End: January 03, 2024 Public Relations Consultant Relationship Specialty Start Date End Date Venus Mendez MD [address] [place] [address] PCP - General Family Medicine 01/10/24 Public Relations Consultant Relationship Specialty Start Date End Date Venus Mendez MD [address] [place] [address] PCP - General Family Medicine 01/10/24 Public Relations Consultant Relationship Specialty Start Date End Date Venus Mendez MD [address] [place] [address] PCP - General Family Medicine 01/10/24 Public Relations Consultant Relationship Specialty Start Date End Date Venus Mendez MD [address] [place] [address] PCP - General Family Medicine 01/10/24 Goals (unrecognized section and content) Goals may be documented in a n alternate section Reason for Visit (unrecogniz ed section and content) Reason Comments Med Refill FOR RECORDS PERTAINING TO PATIENTS WHO ARE [...] BE BASED ON THE PRIMARY CLINICAL RECORDS. [employer] provides no warranty or guarantee of the accuracy or completeness of information in this document.
== END 2024-09-08 10:46 | disposition home or self-care (01) ==
LOC: WC 10:45
PROVIDERS: PCP Family Medicine; Visit Provider Podiatrist Foot & Ankle Surgery
DX: E11.621 Type 2 diabetes mellitus with foot ulcer (principal); L97.522 Non-pressure chronic ulcer of other part of left foot with fat layer exposed
CPT/HCPCS: G0463

== ENCOUNTER 2024-09-19 18:07 | Inpatient (IN) | payer MEDICAID, SELFPAY ==
[2024-09-19 18:11] VITALS: BP 130/71; PULSE 88; TEMP 37.2; O2SAT 95; BMI 38.5
--- NOTE | 2024-09-19 18:25 | US_ITS ---
[facility] [place] [id number] Patient Name: MATTY WADE MRN: [id number] date: 1970 Sex: M Assigned Patient Location: ER Current Patient Location: ER Accession/Order Number: [id number] Exam Date: 09/19/2024 19:20 Report Date: 09/19/2024 20:47 At the request of: DWIGHT GARRETT Procedure: US venous doppler LE LT US venous doppler LE LT, 09/19/2024 7:20 PM EST INDICATION: DVT COMPARISON: 08/30/2024 FINDINGS: Left lower extremity venous duplex The visualized veins of the venous system of the left lower extremity are within normal limits with regard to spontaneous flow, phasic flow, augmentation and compression. No intraluminal thrombus formation is identified. No superficial venous thrombus is present. There is subcutaneous edema. US/US venous doppler LE LT IMPRESSION: No evidence of acute deep or superficial venous thrombosis. Electronically authenticated by: YUMIKO LERMA Date: 09/19/2024 20:47
--- NOTE | 2024-09-19 18:26 | ED.GENADUL1 ---
HPI HPI - General Adult General Chief complaint: Extremity Problem, Nontraumatic Stated complaint: left leg pain Time Seen by Provider: 09/19/24 18:10 Source: patient and family Mode of arrival: walk-in History of Present Illness HPI narrative: Patient is a 53-year-old male with a history of chronic pain, chronic ulcer to the left toe and previous ORIF of the left bimalleolar fracture to the left ankle in March 2024 who presents to the emergency department for increasing swelling, redness and pain to the left leg distal to the left knee. Patient states that his symptoms have worsened today, patient's states that his leg looked normal this morning and has had increasing swelling and redness. He has a chronic ulcer to the plantar aspect of the left great toe, believes that this area around the ulcer is more swollen and red today as well. No fevers or vomiting. Patient reports significant pain and burning to the left lower extremity, he is noted to have swelling and redness to the left anterior tibia. He denies any history of diabetes. Related Data Home Medications ?Medication ?Instructions ?Recorded ?Confirmed carvedilol 25 mg tablet 25 mg PO BID 06/14/23 03/14/24 citalopram 20 mg tablet 20 mg PO DAILY 06/14/23 03/14/24 clonazepam 0.5 mg tablet 0.5 mg PO DAILY 06/14/23 03/14/24 doxazosin 8 mg tablet 8 mg PO DAILY 06/14/23 03/14/24 furosemide 20 mg tablet 20 mg PO DAILY 06/14/23 03/14/24 gabapentin 600 mg tablet 600 mg PO Q8H 06/14/23 03/14/24 glycopyrrolate 1 mg tablet 1 mg PO BID 06/14/23 03/14/24 hydroxyzine pamoate 25 mg capsule 25 mg PO QPM 06/14/23 03/14/24 pantoprazole 40 mg tablet,delayed 40 mg PO DAILY 06/14/23 03/14/24 release simvastatin 20 mg tablet 20 mg PO DAILY 06/14/23 03/14/24 testosterone cypionate 100 mg/mL 100 mg subcut .EVERY 2 WEEKS 06/14/23 03/14/24 intramuscular oil tizanidine 4 mg capsule 4 mg PO .EVERY NIGHT 06/14/23 03/14/24 modafinil 200 mg tablet 200 mg PO BID 09/04/23 03/14/24 potassium chloride 10 mEq 10 meq PO Q12H 09/04/23 03/14/24 tablet,extended release amantadine HCl 100 mg tablet 100 mg PO BID 12/28/23 03/14/24 cholecalciferol (vitamin D3) 125 5,000 unit PO DAILY 12/28/23 03/14/24 mcg (5,000 unit) capsule melatonin 10 mg capsule 10 mg PO DAILY 12/28/23 03/14/24 multivitamin (Daily Multi-Vitamin 1 tab PO DAILY 12/28/23 03/14/24 tablet) sumatriptan succinate 100 mg tablet 100 mg PO Q2H PRN migraine headache 12/28/23 03/14/24 Previous Rx's ?Medication ?Instructions ?Recorded aspirin 81 mg tablet,delayed 81 mg PO BID 30 days #60 tabs 01/03/24 release (Adult Low Dose Aspirin) sodium chloride 0.65 % nasal spray 1 spray intranasal BID PRN dry 02/05/24 aerosol nasal passages #15 mL aspirin 81 mg tablet,delayed 81 mg PO BID 30 days #60 tabs 03/15/24 release (Adult Low Dose Aspirin) cefadroxil 500 mg capsule 500 mg PO BID 7 days #14 caps 03/15/24 cholecalciferol (vitamin D3) 125 125 mcg PO DAILY 90 days #90 caps 03/15/24 mcg (5,000 unit) capsule hydrocodone 5 mg-acetaminophen 325 1 tab PO Q6H PRN pain 7 days #28 03/15/24 mg tablet tabs ondansetron 4 mg disintegrating 4 mg PO Q8H PRN nausea and 03/15/24 tablet vomiting 5 days #15 tabs sennosides 8.6 mg tablet (Senna 8.6 mg PO DAILY PRN constipation 7 03/15/24 Laxative) days #7 tabs Allergies Allergy/AdvReac Type Severity Reaction Status Date / Time No Known Drug Allergies Allergy Verified 08/29/24 04:34 Opioid HPI Opioid Management Most Recent Opioid Data: Last Pain Scale 9 09/19/24 18:49 09/19/24 Last ORT Total Score 0 03/14/24 09:48 03/14/24 Last ORT Risk Category Low Risk 03/14/24 09:48 03/14/24 Review of Systems ROS Constitutional Denies: fever or chills Ears, nose, mouth, and throat Denies: throat pain or nasal congestion Cardiovascular Denies: chest pain Respiratory Denies: shortness of breath or cough Gastrointestinal Denies: abdominal pain, nausea or vomiting Integumentary/Breast Reports: redness, skin pain, skin tenderness and skin swelling; Denies: rash Neurological Denies: headache, numbness in extremities or weakness in extremities Hematologic/Lymphatic Denies: easy bruising or easy bleeding PFSH PFS Medical History Prolonged emergence from general anesthesia ?T88.59XA - Other complications of anesthesia, initial encounter (ICD-10) Pain management contract signed ?Z02.89 - Encounter for other administrative examinations (ICD-10) Back pain ?M54.9 - Dorsalgia, unspecified (ICD-10) PTSD (post-traumatic stress disorder) ?F43.10 - Post-traumatic stress disorder, unspecified (ICD-10) Depression ?F32.A - Depression, unspecified (ICD-10) Dysphagia ?R13.10 - Dysphagia, unspecified (ICD-10) Uvulitis ?K12.2 - Cellulitis and abscess of mouth (ICD-10) Insomnia ?G47.00 - Insomnia, unspecified (ICD-10) Migraine ?G43.909 - Migraine, unspecified, not intractable, without status migrainosus (ICD-10) GERD (gastroesophageal reflux disease) ?K21.9 - Gastro-esophageal reflux disease without esophagitis (ICD-10) Dyspnea on exertion ?R06.09 - Other forms of dyspnea (ICD-10) Heart valve disorder ?I38 - Endocarditis, valve unspecified (ICD-10) Hypoglycemia ?E16.2 - Hypoglycemia, unspecified (ICD-10) Delayed recovery from anesthesia Chronic foot ulcer ?L97.509 - Non-pressure chronic ulcer of other part of unspecified foot with unspecified severity (ICD-10) 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 - Central serous chorioretinopathy, unspecified eye (ICD-10) Chronic pain ?G89.29 - Other chronic pain (ICD-10) Narcolepsy ?G47.419 - 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) Anxiety ?F41.9 - Anxiety disorder, unspecified (ICD-10) Upper back pain ?M54.9 - Dorsalgia, unspecified (ICD-10) Low back pain ?M54.50 - Low back pain, unspecified (ICD-10) TMJ (dislocation of temporomandibular joint) ?S03.00XA - Dislocation of jaw, unspecified side, initial encounter (ICD-10) Obesity ?E66.9 - Obesity, unspecified (ICD-10) Sleep apnea ?G47.30 - Sleep apnea, unspecified (ICD-10) Hypertension ?I10 - Essential (primary) hypertension (ICD-10) Surgical History H/O foot surgery ?Z98.890 - Other specified postprocedural states (ICD-10) H/O radiofrequency ablation (RFA) of nerve of lumbar spine ?Z98.890 - Other specified postprocedural states (ICD-10) History of fusion of cervical spine ?Z98.1 - Arthrodesis status (ICD-10) H/O inguinal hernia repair ?Z98.890 - Other specified postprocedural states (ICD-10) ?Z87.19 - Personal history of other diseases of the digestive system (ICD-10) H/O repair of rotator cuff ?Z98.890 - Other specified postprocedural states (ICD-10) History of uvulopalatopharyngoplasty ?Z98.890 - Other specified postprocedural states (ICD-10) Family History Other Family history of diabetes mellitus Family history of hypertension Family history of myocardial infarction Family history of stroke Social History Within the past year, how often did you have a drink containing alcohol: monthly or less Smoking status: Never smoker Non-prescribed substance use: cannabis (any form) Previous occupational history: unemployed Highest level of school completed/degree received: high school graduate Are you now , , , , never or living with a partner: Little interest or pleasure in doing things: not at all Feeling down, depressed, or hopeless: not at all Feel stressed/tense/nervous/anxious/difficulty sleeping: not at all Do you think of yourself as: straight/heterosexual Gender Identity: male Exam Narrative Exam Narrative: Gen.: Awake, alert, in no distress Head: Normocephalic, atraumatic ENT: Moist mucous membranes Respiratory: No respiratory distress Extremities: 3 cm ulcerated area to the plantar aspect of the left great toe at the MTP joint. Surrounding redness and edema noted of the distal foot and toe. Erythema noted to the left anterior tibia with diffuse swelling of the left calf. Diffusely tender to palpation. Left calf is soft and compressible. Psych: Normal mood and affect Neuro: No focal neuro deficit Skin: Warm, dry, intact Constitutional Vital Signs, click to edit/add: Last Vital Signs Temp 98.9 F 09/19/24 18:11 Pulse 88 09/19/24 18:11 Resp 18 09/19/24 18:11 BP 130/71 09/19/24 18:11 Pulse Ox 95 09/19/24 18:11 O2 Del Method Room Air 09/19/24 18:11 Course Vital Signs Vital signs: Vital Signs Temperature 98.9 F 09/19/24 18:11 Pulse Rate 88 09/19/24 18:11 Respiratory Rate 18 09/19/24 18:11 Blood Pressure 130/71 09/19/24 18:11 Pulse Oximetry 95 09/19/24 18:11 Oxygen Delivery Method Room Air 09/19/24 18:11 Temperature 98.9 F 09/19/24 18:11 Pulse Rate 88 09/19/24 18:11 Respiratory Rate 18 09/19/24 18:11 Blood Pressure 130/71 09/19/24 18:11 Pulse Oximetry 95 09/19/24 18:11 Oxygen Delivery Method Room Air 09/19/24 18:11 Medical Decision Making [facility] Narrative Medical decision making narrative: Patient treated with pain medication and Zofran in order to obtain an ultrasound as he was complaining of significant pain with palpation of the leg. Ultrasound shows no evidence of acute process. Labs show normal white blood cell count, normal lactic acid however CRP and sed rates are elevated. Concern for cellulitis of the left lower extremity, treated with IV Zosyn and vancomycin. Blood cultures are pending. Case discussed with the hospitalist and patient will be admitted to Dr. Mendez service for further evaluation and treatment. Stable at time of admission. As the patient falls asleep in the emergency department, he is noted to be borderline hypoxic although he did not have any increased oxygen demands in the ER. When he is awoken, he has no hypoxia. SHARED APC VISIT, PHYSICIAN ATTESTATION: [id number] I performed a substantive part of the MDM during the patient?s E/M visit. I personally evaluated and examined the patient. I personally made or approved the documented management plan and acknowledge its risk of complications. Medical Records Medical records reviewed: Yes I reviewed the patient's medical records Lab Data Lab results reviewed: Yes I reviewed the patient's lab results Labs: Lab Results 09/19/24 Range/Units 18:35 WBC 7.6 (4.0-11.0) 10^3/uL RBC 5.22 (4.70-6.10) 10^6/uL Hgb 14.0 (14.0-18.0) g/dL Hct 44.6 (42.0-54.0) % MCV 85.4 (80.0-94.0) fL MCH 26.8 (25.9-34.0) pg MCHC 31.4 (29.9-35.2) g/dL RDW 15.1 H (11.0-15.0) % Plt Count 182 (150-450) 10^3/uL MPV 9.8 (9.5-13.5) fL Seg Neuts % (Manual) 77.0 H (43.0-75.0) Lymphocytes % (Manual) 6.0 L (20.5-60.0) % Atypical Lymphs % (Man) 9.0 % Monocytes % (Manual) 4.0 (1.7-12.0) % Eosinophils % (Manual) 3.0 (0.9-7.0) % Basophils % (Manual) 1.0 (0.2-2.0) % Neutrophils # (Manual) 5.85 (1.4-6.5) 10^3/uL Lymphocytes # (Manual) 0.45 L (1.20-3.80) 10^3/uL Abs Atypical Lymphs Man 0.68 Monocytes # (Manual) 0.30 (0.30-0.80) 10^3/uL Eosinophils # (Manual) 0.22 (0.00-0.70) 10^3/uL Basophils # (Manual) 0.07 (0.00-0.10) 10^3/uL ESR 51 H (<=20) mm/hr VBG pH 7.476 H (7.330-7.430) VBG pCO2 39.3 L (40.0-52.0) mmHg Sodium 138 (136-145) mmol/L Potassium 3.7 (3.5-5.1) mmol/L Chloride 103 (98-107) mmol/L Carbon Dioxide 28.6 (21.0-32.0) mmol/L Anion Gap 10.1 BUN 12.0 (7.0-18.0) mg/dL Creatinine 1.04 (0.70-1.30) mg/dL Est GFR ( Amer) >60 (>=60 mL/min/1.73m^2) Est GFR (Non-Af Amer) >60 (>=60 mL/min/1.73m^2) BUN/Creatinine Ratio 11.5 Glucose 128 H (74-106) mg/dL Lactate 1.4 (0.4-2.0) mmol/L Calcium 9.2 (8.5-10.1) mg/dL Total Bilirubin 0.5 (0.2-1.0) mg/dL AST 29 (15-37) U/L ALT 25 (16-63) U/L Alkaline Phosphatase 111 (46-116) U/L C-Reactive Protein 2.51 H (<=0.50) mg/dL Total Protein 7.4 (6.4-8.2) g/dL Albumin 3.3 L (3.4-5.0) g/dL Globulin 4.1 g/dL Albumin/Globulin Ratio 0.8 Imaging Data Venous US: Attestation: I have reviewed the pertinent imaging results. Radiologist's impression: ITS Impressions Venous Doppler Study 09/19/24 18:25 IMPRESSION: No evidence of acute deep or superficial venous thrombosis. Electronically authenticated by: YUMIKO LERMA Date: 09/19/2024 20:47 Discharge Plan Discharge Chief Complaint: Extremity Problem, Nontraumatic Time of Disposition Decision: 21:04 Prescriptions / Home Meds: No Action potassium chloride 10 mEq tablet extended release 10 meq PO Q12H modafinil 200 mg tablet 200 mg PO BID sodium chloride 0.65 % aerosol,spray 1 spray intranasal BID PRN (Reason: dry nasal passages) Qty: 15 0RF gabapentin 600 mg tablet 600 mg PO Q8H carvedilol 25 mg tablet 25 mg PO BID Rx Instructions: must administer with a meal/food doxazosin 8 mg tablet 8 mg PO DAILY simvastatin 20 mg tablet 20 mg PO DAILY pantoprazole 40 mg tablet,delayed release (DR/EC) 40 mg PO DAILY glycopyrrolate 1 mg tablet 1 mg PO BID furosemide 20 mg tablet 20 mg PO DAILY tizanidine 4 mg capsule 4 mg PO .EVERY NIGHT testosterone cypionate 100 mg/mL oil 100 mg subcut .EVERY 2 WEEKS citalopram 20 mg tablet 20 mg PO DAILY clonazepam 0.5 mg tablet 0.5 mg PO DAILY hydroxyzine pamoate 25 mg capsule 25 mg PO QPM cholecalciferol (vitamin D3) 125 mcg (5,000 unit) capsule 5,000 unit PO DAILY multivitamin [Daily Multi-Vitamin] Tablet 1 tab PO DAILY melatonin 10 mg capsule 10 mg PO DAILY amantadine HCl 100 mg tablet 100 mg PO BID sumatriptan succinate 100 mg tablet 100 mg PO Q2H PRN (Reason: migraine headache) aspirin [Adult Low Dose Aspirin] 81 mg tablet,delayed release (DR/EC) 81 mg PO BID 30 Days Qty: 60 0RF hydrocodone-acetaminophen 5-325 mg tablet 1 tab PO Q6H PRN (Reason: pain) 7 Days Qty: 28 0RF aspirin [Adult Low Dose Aspirin] 81 mg tablet,delayed release (DR/EC) 81 mg PO BID 30 Days Qty: 60 0RF cefadroxil 500 mg capsule 500 mg PO BID 7 Days Qty: 14 0RF ondansetron 4 mg tablet,disintegrating 4 mg PO Q8H PRN (Reason: nausea and vomiting) 5 Days Qty: 15 0RF cholecalciferol (vitamin D3) 125 mcg (5,000 unit) capsule 125 mcg PO DAILY 90 Days Qty: 90 0RF sennosides [Senna Laxative] 8.6 mg tablet 8.6 mg PO DAILY PRN (Reason: constipation) 7 Days Qty: 7 0RF Print Language: Austrian
[2024-09-19] MEDS: HYDROMORPHONE HCL 1 MG/ML CARTRIDGE IV (18:40)
[2024-09-19] MEDS: ONDANSETRON PF 4 MG/2 ML VIAL IV (18:41)
[2024-09-19 18:44] LABS: PCO2 VBG 39.3 mmHg (40.0-52.0); pH VBG 7.476 (7.330-7.430)
[2024-09-19 18:45] LABS: Hematocrit 44.6 % (42.0-54.0); Mean Corpuscular HGB Conc 31.4 g/dL (29.9-35.2); Mean Corpuscular Hemoglobin 26.8 pg (25.9-34.0); Mean Corpuscular Volume 85.4 fL (80.0-94.0); Mean Platelet Volume 9.8 fL (9.5-13.5); Platelet Count 182 10^3/uL (150-450); Red Blood Count 5.22 10^6/uL (4.70-6.10); Red Cell Distribution Width 15.1 % (11.0-15.0); White Blood Count 7.6 10^3/uL (4.0-11.0)
[2024-09-19 18:55] LABS: Erythrocyte Sedimentation Rate 51 mm/hr (<=20)
[2024-09-19 19:05] LABS: Atypical Lymphocytes Abs Man 0.68; Basophils Abs Manual 0.07 10^3/uL (0.00-0.10); Eosinophils Absolute Manual 0.22 10^3/uL (0.00-0.70); Lymphocytes Absolute Manual 0.45 10^3/uL (1.20-3.80); Segmented Neut Absolute Manual 5.85 10^3/uL (1.4-6.5)
[2024-09-19 19:10] LABS: Alanine Aminotransferase 25 U/L (16-63); Albumin Globulin Ratio 0.8; Albumin Level 3.3 g/dL (3.4-5.0); Alkaline Phosphatase 111 U/L (46-116); Anion Gap 10.1; Aspartate Amino Transferase 29 U/L (15-37); BUN Creatinine Ratio 11.5; Bilirubin Total 0.5 mg/dL (0.2-1.0); C Reactive Protein 2.51 mg/dL (<=0.50); Calcium 9.2 mg/dL (8.5-10.1); Carbon Dioxide 28.6 mmol/L (21.0-32.0); Chloride 103 mmol/L (98-107); Estimated GFR (African America >60 (>=60 mL/min/1.73m^2); Estimated GFR (Non-African Ame >60 (>=60 mL/min/1.73m^2); Globulin 4.1 g/dL; Glucose 128 mg/dL (74-106); Potassium 3.7 mmol/L (3.5-5.1); Sodium 138 mmol/L (136-145); Total Protein 7.4 g/dL (6.4-8.2)
[2024-09-19 19:12] LABS: Lactate/Lactic Acid 1.4 mmol/L (0.4-2.0)
[2024-09-19] MEDS: PIPERACILLIN SODIUM/TAZOBACTAM 4.5 GM in 0.9 % SODIUM CHLORIDE 50 ML IV (21:29)
[2024-09-19] MEDS: VANCOMYCIN HCL 2,000 MG in 0.9 % SODIUM CHLORIDE 500 ML 250 MG IV (21:53)
[2024-09-19 22:17] VITALS: BP 134/77; PULSE 84; TEMP 36.4; O2SAT 94; BMI 38.5
[2024-09-19 22:59] VITALS: BP 134/77; PULSE 84; TEMP 36.4; O2SAT 955
[2024-09-20] VITALS (57 sets, daily range): BP systolic 106–154; BP diastolic 55–101; PULSE 69–94; RESP 14–16; TEMP 36.4–37.1; O2SAT 60–100
[2024-09-20] MEDS: AMANTADINE HCL 100 MG CAPSULE PO ×3 (00:09→20:51)
[2024-09-20] MEDS: HYDROCODONE/ACET 5-325 MG TABLET 1 TAB PO ×2 (00:10→05:05)
[2024-09-20] MEDS: GABAPENTIN 300 MG CAPSULE 600 MG PO ×3 (00:10→09:19)
[2024-09-20] MEDS: ENOXAPARIN SODIUM 40 MG/0.4 ML SYRINGE SUBQ ×2 (00:11→23:10)
[2024-09-20] MEDS: HYDROXYZINE PAMOATE 25 MG CAPSULE PO (00:13)
[2024-09-20] MEDS: PIPERACILLIN SODIUM/TAZOBACTAM 3.375 GM in 0.9 % SODIUM CHLORIDE 50 ML IV ×3 (04:45→23:11)
[2024-09-20 05:56] LABS: Basophils Absolute Auto 0.1 10^3/uL (0.0-0.1); Basophils Percent Auto 0.9 % (0.2-2.0); Eosinophils Absolute Auto 0.1 10^3/uL (0.0-0.7); Eosinophils Percent Auto 2.1 % (0.9-7.0); Hematocrit 45.1 % (42.0-54.0); Hemoglobin 13.8 g/dL (14.0-18.0); Immature Granulocytes Abs Auto 0.07 10^3/uL (0.00-0.03); Immature Granulocytes Pct Auto 1.1 % (0.0-0.5); Lymphocytes Absolute Auto 0.7 10^3/uL (1.2-3.8); Lymphocytes Percent Auto 10.4 % (20.5-60.0); Mean Corpuscular HGB Conc 30.6 g/dL (29.9-35.2); Mean Corpuscular Hemoglobin 26.6 pg (25.9-34.0); Mean Corpuscular Volume 86.9 fL (80.0-94.0); Mean Platelet Volume 10.2 fL (9.5-13.5); Monocytes Absolute Auto 0.8 10^3/uL (0.3-0.8); Monocytes Percent Auto 11.4 % (1.7-12.0); Neutrophils Absolute Auto 4.9 10^3/uL (1.4-6.5); Neutrophils Percent Auto 74.1 % (43.0-75.0); Platelet Count 171 10^3/uL (150-450); Red Blood Count 5.19 10^6/uL (4.70-6.10); Red Cell Distribution Width 15.2 % (11.0-15.0); White Blood Count 6.6 10^3/uL (4.0-11.0)
[2024-09-20 07:07] LABS: Alanine Aminotransferase 27 U/L (16-63); Albumin Globulin Ratio 0.8; Albumin Level 3.1 g/dL (3.4-5.0); Alkaline Phosphatase 109 U/L (46-116); Anion Gap 9.5; Aspartate Amino Transferase 28 U/L (15-37); Bilirubin Total 0.6 mg/dL (0.2-1.0); Calcium 8.7 mg/dL (8.5-10.1); Carbon Dioxide 34.5 mmol/L (21.0-32.0); Chloride 102 mmol/L (98-107); Estimated GFR (African America >60 (>=60 mL/min/1.73m^2); Estimated GFR (Non-African Ame >60 (>=60 mL/min/1.73m^2); Globulin 3.9 g/dL; Glucose 80 mg/dL (74-106); Sodium 142 mmol/L (136-145)
[2024-09-20 07:22] LABS: Glucometer 159 mg/dL (74-106)
--- NOTE | 2024-09-20 07:33 | P.HP_ITS ---
HPI H&P: HPI History of Present Illness Chief complaint: CELLULITIS LLE Narrative: Patient with longstanding foot ulcer, he has been receiving ongoing treatments through the wound center, recent visit as well, yesterday started increasing pain and swelling of his left lower extremity originating from the ulcer in the bottom of his foot, rapidly progressed up his leg over the course of just hours, so presented to emergency room, found to have acute cellulitis with rapid progression, with failed outpatient treatment in the rapid progression was placed on IV antibiotics admitted When I saw patient up in the intensive care unit, resting comfortably in bed without complaint other than his left lower extremity, denies chest pain or shortness of breath. Opioid HPI Opioid Management Most Recent Pain and Opioid Data: Last Pain Scale 5 09/20/24 06:00 09/20/24 Last Pain Assessment 09/20/24 07:00 Last MAR Pain Assessment 09/20/24 05:05 Last ORT Total Score 6 09/19/24 22:17 09/19/24 Last ORT Risk Category Moderate Risk 09/19/24 22:17 09/19/24 Review of Systems ROS Status of ROS 10 or more systems reviewed and unremark able except as noted in history and below [facility] Medical History (Updated 09/19/24 @ 21:10 by ) Peripheral neuropathy ?G62.9 - Polyneuropathy, unspecified (ICD-10) Type 2 diabetes mellitus ?E11.9 - Type 2 diabetes mellitus without complications (ICD-10) Closed fracture of left distal fibula ?S82.832A - Other fracture of upper and lower end of left fibula, initial encounter for closed fracture (ICD-10) Ankle fracture ?S82.899A - Other fracture of unspecified lower leg, initial encounter for closed fracture (ICD-10) Prolonged emergence from general anesthesia ?T88.59XA - Other complications of anesthesia, initial encounter (ICD-10) Pain management contract signed ?Z02.89 - Encounter for other administrative examinations (ICD-10) Back pain ?M54.9 - Dorsalgia, unspecified (ICD-10) PTSD (post-traumatic stress disorder) ?F43.10 - Post-traumatic stress disorder, unspecified (ICD-10) Depression ?F32.A - Depression, unspecified (ICD-10) Dysphagia ?R13.10 - Dysphagia, unspecified (ICD-10) Uvulitis ?K12.2 - Cellulitis and abscess of mouth (ICD-10) Insomnia ?G47.00 - Insomnia, unspecified (ICD-10) Migraine ?G43.909 - Migraine, unspecified, not intractable, without status migrainosus (ICD-10) GERD (gastroesophageal reflux disease) ?K21.9 - Gastro-esophageal reflux disease without esophagitis (ICD-10) Dyspnea on exertion ?R06.09 - Other forms of dyspnea (ICD-10) Heart valve disorder ?I38 - Endocarditis, valve unspecified (ICD-10) Hypoglycemia ?E16.2 - Hypoglycemia, unspecified (ICD-10) Delayed recovery from anesthesia Chronic foot ulcer ?L97.509 - Non-pressure chronic ulcer of other part of unspecified foot with unspecified severity (ICD-10) 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 - Central serous chorioretinopathy, unspecified eye (ICD-10) Chronic pain ?G89.29 - Other chronic pain (ICD-10) Narcolepsy ?G47.419 - 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) Anxiety ?F41.9 - Anxiety disorder, unspecified (ICD-10) Upper back pain ?M54.9 - Dorsalgia, unspecified (ICD-10) Low back pain ?M54.50 - Low back pain, unspecified (ICD-10) TMJ (dislocation of temporomandibular joint) ?S03.00XA - Dislocation of jaw, unspecified side, initial encounter (ICD-10) Obesity ?E66.9 - Obesity, unspecified (ICD-10) Sleep apnea ?G47.30 - Sleep apnea, unspecified (ICD-10) Hypertension ?I10 - Essential (primary) hypertension (ICD-10) Surgical History H/O foot surgery ?Z98.890 - Other specified postprocedural states (ICD-10) H/O radiofrequency ablation (RFA) of nerve of lumbar spine ?Z98.890 - Other specified postprocedural states (ICD-10) History of fusion of cervical spine ?Z98.1 - Arthrodesis status (ICD-10) H/O inguinal hernia repair ?Z98.890 - Other specified postprocedural states (ICD-10) ?Z87.19 - Personal history of other diseases of the digestive system (ICD-10) H/O repair of rotator cuff ?Z98.890 - Other specified postprocedural states (ICD-10) History of uvulopalatopharyngoplasty ?Z98.890 - Other specified postprocedural states (ICD-10) Family History Other Family history of diabetes mellitus Family history of hypertension Family history of myocardial infarction Family history of stroke Social History Within the past year, how often did you have a drink containing alcohol: monthly or less Smoking status: Never smoker Non-prescribed substance use: cannabis (any form) Previous occupational history: unemployed Highest level of school completed/degree received: some college, no degree Are you now , , , , never or living with a partner: Little interest or pleasure in doing things: not at all Feeling down, depressed, or hopeless: not at all Feel stressed/tense/nervous/anxious/difficulty sleeping: not at all Do you think of yourself as: don't know Gender Identity: male Meds Home Medications and Allergies Home Medications ?Medication ?Instructions ?Recorded ?Confirmed ?Type carvedilol 25 mg tablet 25 mg PO BID 06/14/23 09/19/24 History citalopram 20 mg tablet 20 mg PO DAILY 06/14/23 09/19/24 History doxazosin 8 mg tablet 8 mg PO DAILY 06/14/23 09/19/24 History furosemide 20 mg tablet 20 mg PO DAILY 06/14/23 09/19/24 History gabapentin 600 mg tablet 1,200 mg PO .QHS 06/14/23 09/20/24 History glycopyrrolate 1 mg tablet 1 mg PO BID 06/14/23 09/19/24 History hydroxyzine pamoate 25 mg capsule 25 mg PO QPM 06/14/23 09/19/24 History pantoprazole 40 mg tablet,delayed 40 mg PO DAILY 06/14/23 09/19/24 History release simvastatin 20 mg tablet 20 mg PO DAILY 06/14/23 09/19/24 History testosterone cypionate 100 mg/mL 100 mg subcut .EVERY 2 WEEKS 06/14/23 09/19/24 History intramuscular oil tizanidine 4 mg capsule 4 mg PO .EVERY NIGHT 06/14/23 09/19/24 History modafinil 200 mg tablet 200 mg PO BID 09/04/23 09/19/24 History potassium chloride 10 mEq 10 meq PO Q12H 09/04/23 09/19/24 History tablet,extended release amantadine HCl 100 mg tablet 100 mg PO BID 12/28/23 09/19/24 History cholecalciferol (vitamin D3) 125 5,000 unit PO DAILY 12/28/23 09/19/24 History mcg (5,000 unit) capsule melatonin 10 mg capsule 10 mg PO DAILY 12/28/23 09/19/24 History multivitamin (Daily Multi-Vitamin 1 tab PO DAILY 12/28/23 09/19/24 History tablet) aspirin 81 mg tablet,delayed 81 mg PO BID 30 days #60 tabs 01/03/24 09/20/24 Rx release (Adult Low Dose Aspirin) biotin 10 mg tablet 10 mg PO DAILY 09/19/24 09/19/24 History doxepin 10 mg capsule 10 mg PO DAILY PRN sleep 09/19/24 09/19/24 History Allergies Allergy/AdvReac Type Severity Reaction Status Date / Time No Known Drug Allergies Allergy Verified 08/29/24 04:34 Exam Constitutional Vital Signs, click to edit/add: Last Vital Signs Temp 97.5 F L 09/20/24 05:26 Pulse 77 09/20/24 07:29 Resp 18 09/20/24 07:29 BP 126/81 09/20/24 07:29 Pulse Ox 66 L 09/20/24 07:29 O2 Del Method Room Air 09/20/24 07:29 Documenting provider has reviewed patient's vital signs: yes Common normals: no apparent distress Respiratory Common normals: normal respiratory effort and no retractions Cardio Common normals: regular rate and regular rhythm GI Common normals: negative for Normal to inspection, nondistended, normoactive bowel sounds present (Obese) Extremity Common normals: abnormal to inspection (Erythema, calor, dolor left lower extremity up to the level of the knee, ) Other: Foot ulcer with dressing in place on left foot Results Labs Labs: Short CBC 09/19/24 09/20/24 Range/Units 18:35 04:44 WBC 7.6 6.6 (4.0-11.0) 10^3/uL Hgb 14.0 13.8 L (14.0-18.0) g/dL Hct 44.6 45.1 (42.0-54.0) % Plt Count 182 171 (150-450) 10^3/uL BMP 09/19/24 09/20/24 18:35 04:44 Sodium 138 142 Potassium 3.7 4.0 Chloride 103 102 Carbon Dioxide 28.6 34.5 H BUN 12.0 11.0 Creatinine 1.04 1.00 Glucose 128 H 80 Calcium 9.2 8.7 Liver Function 09/19/24 09/20/24 Range/Units 18:35 04:44 Total Bilirubin 0.5 0.6 (0.2-1.0) mg/dL AST 29 28 (15-37) U/L ALT 25 27 (16-63) U/L Alkaline Phosphatase 111 109 (46-116) U/L Albumin 3.3 L 3.1 L (3.4-5.0) g/dL ABG ABG results: 09/19/24 18:35 VBG pH 7.476 H VBG pCO2 39.3 L Assessment and Plan Assessment and Plan (1) Chronic foot ulcer: (2) Cellulitis of left leg: (3) Foot ulcer: (4) Chronic pain syndrome: (5) Lumbar spondylosis: (6) Insomnia: (7) Type 2 diabetes mellitus: (8) Peripheral neuropathy: Plan Admission findings: Increasing pain, uncontrolled hypertension, rapidly progressive cellulitis of left lower extremity with wound failing outpatient treatment to the wound center bottom of left foot Rapidly progressing cellulitis left lower extremity, happened over the course of just hours-continue with IV antibiotics Zosyn and vancomycin. Consult to wound Diabetes mellitus-insulin sliding scale Hypertension-continue with home medications Anxiety and depression continue with home medications Insomnia-continue with home medications Peripheral neuropathy-continue with home medications Narcolepsy-continue with home medications GERD-continue with home medications Hypercholesterolemia-continue with home medications Low back pain-continue with home medications Admission status: Patient initially placed in observation status, if the leg looks better today could possibly be discharged with oral antibiotics, but that seems unlikely will see how the day progresses, more than likely will need to c hange to inpatient status is medically necessary treatment will span 2 midnights
[2024-09-20] MEDS: ASPIRIN 81 MG TABLET.DR PO ×2 (08:10→20:51)
[2024-09-20] MEDS: CARVEDILOL 25 MG TABLET PO ×2 (08:10→20:51)
[2024-09-20] MEDS: OMEPRAZOLE 40 MG CAPSULE.DR PO (08:10)
[2024-09-20] MEDS: FUROSEMIDE 20 MG TABLET PO (08:10)
[2024-09-20] MEDS: DOXAZOSIN MESYLATE 2 MG TABLET 8 MG PO (08:10)
[2024-09-20] MEDS: CITALOPRAM HYDROBROMIDE 20 MG TABLET PO ×2 (08:10→08:57)
[2024-09-20] MEDS: POTASSIUM CHLORIDE 10 MEQ ER TABLET PO ×2 (08:10→20:51)
[2024-09-20] MEDS: MULTIVITAMIN TABLET 1 TAB PO (08:10)
[2024-09-20] MEDS: INSULIN ASPART 300 UNIT/3 ML PEN SUBQ ×2 (08:11→16:22)
[2024-09-20] MEDS: CHOLECALCIFEROL (VITAMIN D3) 125 MCG/5,000 UNIT TABLET PO (08:57)
[2024-09-20] MEDS: MODAFINIL 100 MG TABLET 200 MG PO ×2 (08:57→13:33)
[2024-09-20] MEDS: VANCOMYCIN HCL 1,750 MG in 0.9 % SODIUM CHLORIDE 500 ML 250 MG IV ×2 (11:04→23:40)
[2024-09-20 11:06] LABS: Glucometer 122 mg/dL (74-106)
--- NOTE | 2024-09-20 12:34 | CT_ITS ---
The [address] [address] Patient Name: MATTY WADE MRN: [id number] date: 1970 Sex: M Assigned Patient Location: ICU Current Patient Location: ICU Accession/Order Number: [id number] Exam Date: 09/20/2024 13:15 Report Date: 09/20/2024 14:56 At the request of: VENUS JAEGER Procedure: CT soft tissue neck w con EXAM: CT NECK WITH CONTRAST, 09/20/2024. HISTORY: Hypoxia. COMPARISON: CT cervical spine, 12/06/2022. TECHNIQUE: Postcontrast axial CT images obtained through the neck. Reconstructions obtained in the sagittal and coronal planes. Dose reduction techniques were achieved by using automated exposure control and/or adjustment of mA and/or kV according to patient size and/or use of iterative reconstruction technique. FINDINGS: The visualized intracranial contents are unremarkable. Paranasal sinuses are clear. Masseters are clear. Skull base intact. Adult Care Provider spaces are normal. The parotid glands are normal. Submandibular glands are normal. The tongue and floor of the mouth are normal. Nasopharynx is normal. Oropharynx and retropharyngeal space appear normal. Epiglottis normal. The vocal cords are symmetric. No laryngeal edema. The thyroid gland is normal. Visualized portion of the trachea and esophagus unremarkable. No carotid artery stenosis. Internal jugular veins are normal. No lymphadenopathy. No masses. Lung apices are clear. Previous anterior discectomy and fusion at C5-C6 and C6-C7. No suspicious osseous lesion. CT/CT soft tissue neck w con IMPRESSION: 1. No neck masses or lymphadenopathy. 2. No laryngeal edema. Epiglottis and pharyngeal structures are unremarkable. No acute findings in the neck. Electronically authenticated by: JOSEP BERRY Date: 09/20/2024 14:56
--- NOTE | 2024-09-20 12:34 | CT_ITS ---
[address] [address] Patient Name: MATTY WADE MRN: [id number] date: 1970 Sex: M Assigned Patient Location: ICU Current Patient Location: ICU Accession/Order Number: [id number] Exam Date: 09/20/2024 13:15 Report Date: 09/20/2024 14:15 At the request of: VENUS JAEGER Procedure: CT angio chest EXAMINATION: CT angio chest HISTORY: acute hypoxia COMPARISON: No relevant comparison available. TECHNIQUE: Multi-planar CT images were created with IV contrast. Axial, Coronal, and Sagittal images. Dose reduction techniques were achieved by using automated exposure control and/or adjustment of mA and/or kV according to patient size and/or use of iterative reconstruction technique. FINDINGS: LUNGS: Mild dependent opacities, atelectasis is favored. No significant pulmonary nodule or mass PLEURA: No mass, effusion, or pneumothorax. VASCULATURE: Suboptimal postcontrast opacification of the central pulmonary arterial tree with no definite filling defect to suggest a pulmonary embolus JAQUI: No mass or adenopathy. MEDIASTINUM: No mass or adenopathy. CARDIAC: No enlargement, pericardial thickening, or significant calcification. AORTA: No aneurysm or dissection. CHEST WALL: No mass or axillary adenopathy. BONES: No bone lesion or fracture. LIMITED ABDOMEN: No suspicious findings. Limited images of the upper abdomen. OTHER: Negative. CT/CT angio chest IMPRESSION: No central pulmonary thromboembolic disease Electronically authenticated by: ALVINA CAICEDO Date: 09/20/2024 14:15
--- NOTE | 2024-09-20 12:38 | PC.NURSE ---
updated on pts condition.
[2024-09-20 12:42] LABS: PO2 ABG 91.6 mmHg (80.0-100.0); pH ABG 7.353 (7.350-7.450)
[2024-09-20 12:43] LABS: Allen Test POSITIVE (POSITIVE); BIPAP Pressure 18/10; Base Excess ABG 8.9 mmol/L (-2.0-2.0); Fractionated Inspired Oxygen 35 %; HCO3 ABG 34.4 mmol/L (22.0-26.0); O2 Mode BIPAP; Oxygen Saturation ABG 97.9 %; Puncture Site LR; Rate 14
--- NOTE | 2024-09-20 12:51 | ECG_ITS ---
The [facility] Test Date: 2024-09-20 Pat Name: MATTY WADE Department: Room: [facility] Gender: Male [employer] Licensee: : 1970 Requested By: VENUS JAEGER Order Number: [id number] Reading MD: EMILE WALSH Measurements Intervals [place] Rate: 67 P: 54 OR: 186 QRS: 62 QRSD: 94 T: 31 QT: 394 QTc: 409 Interpretive Statements [address]/T wave changes Electronically Signed On 09-21-2024 20:51:20 EST by EMILE WALSH
[2024-09-20 13:10] LABS: Troponin I High Sensitivity 6.2 pg/mL (4.0-76.1)
[2024-09-20 13:22] LABS: Troponin I High Sensitivity 7.2 pg/mL (4.0-76.1)
--- NOTE | 2024-09-20 13:38 | RESP.RT ---
Patient placed on CPAP for severe WITNESSED APNEA per , CPAP was not suuficient so [employer] placed pt ON BIPAP 18/10 with 35% fio2 . Patient is sitting in chair at this time still going APNEIC while on the BIPAP. DR JAEGER aware. ABG DRAWN
[2024-09-20 16:19] LABS: Glucometer 182 mg/dL (74-106)
--- NOTE | 2024-09-20 17:19 | P.PLCN_ITS ---
History of Present Illness History of Present Illness Consult date: 09/20/24 Requesting physician: Caden Mendez Reason for consult: obstructive sleep apnea (with hypercapnia) Chief complaint: CELLULITIS LLE Narrative: 53yo male admitted with cellulitis last night. This morning, the nurses noticed that the patient appeared up to noted. They had difficulty awakening him. His SpO2 was in the 60s on room air. He was snoring loudly. He was started on a CPAP, but did not tolerate that and was changed to BiPAP. Pulmonary was eventually consulted for further management. I spoke with respiratory therapy who was in the room this afternoon when I saw the patient. He was placed on a BiPAP 18/10, RR 14, FiO2 35%. Patient saturations were in the 90s. It took a few minutes for the patient to wake up after taking the BiPAP off, but then he was able to speak. He appeared tired, but was making sense. 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 He also is being looked into having narcolepsy. He currently has no sleep specialist. He is on multiple medications from multiple providers he states. He is concerned that there are drug interactions. He states 10 years ago, he had to sit down and go through all his medications because he is on so many and as he states he was on medications to treat side effects from side effects from other medications. I did a perspective drug review of his home medications along with currently prescribed medications. He is on multiple sedating medications including gabapentin, tizanidine, doxepin, hydroxyzine, melatonin. He was prescribed hydrocodone/APAP for pain. Additionally, due to hypersomnolence, he is also on modafinil 200 mg twice daily. Review of Systems ROS Status of ROS 10 or more systems reviewed and unremark able except as noted in history and below Integumentary/Breast Reports: skin swelling (Left lower extremity cellulitis) [facility] Medical History Prolonged emergence from general anesthesia ?T88.59XA - Other complications of anesthesia, initial encounter (ICD-10) Pain management contract signed ?Z02.89 - Encounter for other administrative examinations (ICD-10) Back pain ?M54.9 - Dorsalgia, unspecified (ICD-10) PTSD (post-traumatic stress disorder) ?F43.10 - Post-traumatic stress disorder, unspecified (ICD-10) Depression ?F32.A - Depression, unspecified (ICD-10) Dysphagia ?R13.10 - Dysphagia, unspecified (ICD-10) Uvulitis ?K12.2 - Cellulitis and abscess of mouth (ICD-10) Insomnia ?G47.00 - Insomnia, unspecified (ICD-10) Migraine ?G43.909 - Migraine, unspecified, not intractable, without status migrainosus (ICD-10) GERD (gastroesophageal reflux disease) ?K21.9 - Gastro-esophageal reflux disease without esophagitis (ICD-10) Dyspnea on exertion ?R06.09 - Other forms of dyspnea (ICD-10) Heart valve disorder ?I38 - Endocarditis, valve unspecified (ICD-10) Hypoglycemia ?E16.2 - Hypoglycemia, unspecified (ICD-10) Delayed recovery from anesthesia Chronic foot ulcer ?L97.509 - Non-pressure chronic ulcer of other part of unspecified foot with unspecified severity (ICD-10) 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 - Central serous chorioretinopathy, unspecified eye (ICD-10) Chronic pain ?G89.29 - Other chronic pain (ICD-10) Narcolepsy ?G47.419 - 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) Anxiety ?F41.9 - Anxiety disorder, unspecified (ICD-10) Upper back pain ?M54.9 - Dorsalgia, unspecified (ICD-10) Low back pain ?M54.50 - Low back pain, unspecified (ICD-10) TMJ (dislocation of temporomandibular joint) ?S03.00XA - Dislocation of jaw, unspecified side, initial encounter (ICD-10) Obesity ?E66.9 - Obesity, unspecified (ICD-10) Sleep apnea ?G47.30 - Sleep apnea, unspecified (ICD-10) Hypertension ?I10 - Essential (primary) hypertension (ICD-10) Surgical History H/O foot surgery ?Z98.890 - Other specified postprocedural states (ICD-10) H/O radiofrequency ablation (RFA) of nerve of lumbar spine ?Z98.890 - Other specified postprocedural states (ICD-10) History of fusion of cervical spine ?Z98.1 - Arthrodesis status (ICD-10) H/O inguinal hernia repair ?Z98.890 - Other specified postprocedural states (ICD-10) ?Z87.19 - Personal history of other diseases of the digestive system (ICD-10) H/O repair of rotator cuff ?Z98.890 - Other specified postprocedural states (ICD-10) History of uvulopalatopharyngoplasty ?Z98.890 - Other specified postprocedural states (ICD-10) Family History Other Family history of diabetes mellitus Family history of hypertension Family history of myocardial infarction Family history of stroke Social History Within the past year, how often did you have a drink containing alcohol: monthly or less Smoking status: Never smoker Non-prescribed substance use: cannabis (any form) Previous occupational history: unemployed Highest level of school completed/degree received: some college, no degree Are you now , , , , never or living with a partner: Little interest or pleasure in doing things: not at all Feeling down, depressed, or hopeless: not at all Feel stressed/tense/nervous/anxious/difficulty sleeping: not at all Do you think of yourself as: don't know Gender Identity: male Meds Home Medications and Allergies Home Medications ?Medication ?Instructions ?Recorded ?Confirmed ?Type carvedilol 25 mg tablet 25 mg PO BID 06/14/23 09/20/24 History doxazosin 8 mg tablet 8 mg PO DAILY 06/14/23 09/19/24 History furosemide 20 mg tablet 20 mg PO DAILY 06/14/23 09/19/24 History gabapentin 600 mg tablet 1,200 mg PO .QHS 06/14/23 09/20/24 History glycopyrrolate 1 mg tablet 1 mg PO BID 06/14/23 09/19/24 History hydroxyzine pamoate 25 mg capsule 25 mg PO QPM 06/14/23 09/19/24 History pantoprazole 40 mg tablet,delayed 40 mg PO DAILY 06/14/23 09/19/24 History release simvastatin 20 mg tablet 20 mg PO .qhs 06/14/23 09/20/24 History modafinil 200 mg tablet 200 mg PO BID 09/04/23 09/19/24 History potassium chloride 10 mEq 10 meq PO Q12H 09/04/23 09/19/24 History tablet,extended release amantadine HCl 100 mg tablet 100 mg PO BID 12/28/23 09/19/24 History cholecalciferol (vitamin D3) 125 5,000 unit PO DAILY 12/28/23 09/19/24 History mcg (5,000 unit) capsule melatonin 10 mg capsule 10 mg PO .qhs 12/28/23 09/20/24 History multivitamin (Daily Multi-Vitamin 1 tab PO DAILY 12/28/23 09/19/24 History tablet) aspirin 81 mg tablet,delayed 81 mg PO BID 30 days #60 tabs 01/03/24 09/20/24 Rx release (Adult Low Dose Aspirin) biotin 10 mg tablet 10 mg PO DAILY 09/19/24 09/19/24 History citalopram 40 mg tablet 40 mg PO DAILY 09/20/24 09/20/24 History gabapentin 600 mg tablet 600 mg PO DAILY 09/20/24 09/20/24 History (Neurontin) testosterone cypionate 200 mg/mL 300 mg IM Q14D 09/20/24 09/20/24 History intramuscular oil tizanidine 4 mg tablet 4 mg PO .qhs 09/20/24 09/20/24 History Allergies Allergy/AdvReac Type Severity Reaction Status Date / Time No Known Drug Allergies Allergy Verified 08/29/24 04:34 Exam Constitutional Vital Signs, click to edit/add: Last Vital Signs Temp 98 F 09/20/24 12:00 Pulse 90 09/20/24 17:00 Resp 19 09/20/24 17:00 BP 154/80 H 09/20/24 16:24 Pulse Ox 96 09/20/24 16:40 O2 Del Method BIPAP 09/20/24 14:06 O2 Flow Rate 3 09/20/24 10:55 FiO2 35 09/20/24 16:00 Documenting provider has reviewed patient's vital signs: yes Other: Patient was initially obtunded and difficult to arouse, but he eventually woke up and was waking clear, cohesive sentences. HENMT Other: Wearing nasal cannula after took BiPAP mask off. Mallampati class IV with macroglossia & tongue ridging. Chest Common normals: inspection of chest normal Respiratory Auscultation: clear to auscultation bilaterally Cardio Rate: regular rate Rhythm: regular rhythm GI Inspection: central obesity Extremity Other: Findings consistent with cellulitis on the left lower extremity/leg Neuro Motor exam: no tremor noted and no fasciculations Psych Other: Patient was initially obtunded, but after he woke up, he was speaking coherently with fluid thoughts. Results Laboratory Findings ABG, PT/INR, D-dimer: ABG ABG pH 7.353 (7.350-7.450) 09/20/24 12:35 ABG pCO2 62.0 mmHg (35.0-45.0) H* 09/20/24 12:35 ABG pO2 91.6 mmHg (80.0-100.0) 09/20/24 12:35 ABG O2 Saturation 97.9 % 09/20/24 12:35 Abnormal lab findings: Abnormal Labs 09/19/24 09/20/24 09/20/24 18:35 04:44 07:19 Hgb 13.8 L RDW 15.1 H 15.2 H Lymph % (Auto) 10.4 L Lymph # (Auto) 0.7 L Abs Immat Gran (auto) 0.07 H Seg Neuts % (Manual) 77.0 H Lymphocytes % (Manual) 6.0 L Imm/Tot Granulo (auto) 1.1 H Lymphocytes # (Manual) 0.45 L ESR 51 H ABG pCO2 ABG HCO3 ABG Base Excess VBG pH 7.476 H VBG pCO2 39.3 L Carbon Dioxide 34.5 H Glucose 128 H C-Reactive Protein 2.51 H Albumin 3.3 L 3.1 L POC Glucose 159 H 09/20/24 09/20/24 09/20/24 11:05 12:35 16:18 Hgb RDW Lymph % (Auto) Lymph # (Auto) Abs Immat Gran (auto) Seg Neuts % (Manual) Lymphocytes % (Manual) Imm/Tot Granulo (auto) Lymphocytes # (Manual) ESR ABG pCO2 62.0 H* ABG HCO3 34.4 H ABG Base Excess 8.9 H VBG pH VBG pCO2 Carbon Dioxide Glucose C-Reactive Protein Albumin POC Glucose 122 H 182 H Assessment and Plan Assessment and Plan (1) Acute hypercapnic respiratory failure: Assessment and Plan: 1. Acute hypercapnic respiratory failure, symptomatic, secondary to uncompensated PATEL/questionable OHS on top of polypharmacy. Patient has history of obstructive sleep apnea. He is obese with a BMI 38.5. Likely has underlying OHS as well. For now, the main goal is to eliminate any nonessential medications that are sedating or potentially sedating. He has a history of insomnia, but given his current status, I do not feel that he needs to have any sedating medications on his profile. Discontinued doxepin, hydroxyzine, and melatonin at night. He also takes gabapentin at 1200 mg which can be sedating, but given his chronic pain, we will hold off on changing that. Additionally, we will keep tizanidine on his profile for now for any muscle spasms. He was prescribed hydrocodone/APAP for pain. This medication can also suppress his respiratory drive. I have discontinued this and changed over to tramadol for pain control if needed?this is a nonsedating narcotic. Potential risk for serotonin syndrome along with citalopram, but I feel the benefits outweigh the risks for using this pain medication. He is also going to be monitored in the ICU for now. For now, continue with the BiPAP on/off every 2 hours and throughout the night. Cancel ABG at this time and reschedule for tomorrow morning. 2. PATEL. Uncompensated. He states he was tested a decade ago, but does not have a CPAP. He needs to be tested outpatient for treatment. If this can be treated and sleep hygiene is corrected, this may help resolve his daytime hypersomnolence requiring the modafinil, and the modafinil causing insomnia at bedtime. 3. Insomnia. As above. Question secondary to modafinil used for daytime hypersomnolence. For now, given his obtunded status, I would rather him have the modafinil to keep him more alert than for him to drift off to sleep. This will need to be evaluated outpatient. 4. Polypharmacy. I suspect this is causing oversedation, especially at night. He may benefit from a more in-depth perspective drug review. He states he already had 1 of these about 10 years ago when he felt he was overmedicated. 5. Obesity with a BMI of 38.5. Along with hypercapnia, he may have underlying OHS.
--- NOTE | 2024-09-20 18:49 | XR_ITS ---
The [address] [address] Patient Name: MATTY WADE MRN: [id number] date: 1970 Sex: M Assigned Patient Location: ICU Current Patient Location: ICU Accession/Order Number: [id number] Exam Date: 09/20/2024 20:45 Report Date: 09/20/2024 21:43 At the request of: CLARISA BOJORQUEZ Procedure: XR foot LT min 3V Examination:XR ankle LT min 3V, XR foot LT min 3V INDICATION:cellulitis COMPARISON:08/29/2024 x-rays of the left ankle and foot TECHNIQUE:3 left ankle and 3 left foot views are submitted. FINDINGS: Left ankle: Internal fixation hardware is present in the distal left ankle. There are syndesmotic screws extending across the distal tibia and fibula. These screws have surrounding lucency similar in appearance to the prior examination concerning for loosening of the hardware. There is similar hypertrophic changes. No definitive acute fractures are appreciated. There is significant soft tissue edema likely representing cellulitis. No bony erosive changes are present to suggest acute osteomyelitis. Left foot: No definitive acute fractures are present in the left foot. There are erosive changes involving the interphalangeal joint of the first toe. Septic arthropathy cannot be excluded. Subchondral cystic changes are present in the first metatarsophalangeal joint with the related to degenerative osteoarthritis. There is severe swelling of the first toe with extension proximally along the left foot. There is mild to moderate degeneration of the first metatarsophalangeal joint. There is a tiny curvilinear radiopaque foreign bodies projecting along the plantar surface of the hindfoot. Present on the previous exam. XR/XR foot LT min 3V IMPRESSION: 1. No acute osseous abnormalities in the left ankle. Imaging findings are concerning for loosening of the syndesmotic screws. 2. Erosive changes in the interphalangeal joint of the first digit could potentially be secondary to septic arthropathy. 3. Severe soft tissue swelling in the left foot osseous loose secondary to cellulitis. Electronically authenticated by: YUMIKO LERMA Date: 09/20/2024 21:43
--- NOTE | 2024-09-20 18:49 | XR_ITS ---
The [address] [address] Patient Name: MATTY WADE MRN: [id number] date: 1970 Sex: M Assigned Patient Location: ICU Current Patient Location: ICU Accession/Order Number: [id number] Exam Date: 09/20/2024 20:45 Report Date: 09/20/2024 21:43 At the request of: CLARISA BOJORQUEZ Procedure: XR ankle LT min 3V Examination:XR ankle LT min 3V, XR foot LT min 3V INDICATION:cellulitis COMPARISON:08/29/2024 x-rays of the left ankle and foot TECHNIQUE:3 left ankle and 3 left foot views are submitted. FINDINGS: Left ankle: Internal fixation hardware is present in the distal left ankle. There are syndesmotic screws extending across the distal tibia and fibula. These screws have surrounding lucency similar in appearance to the prior examination concerning for loosening of the hardware. There is similar hypertrophic changes. No definitive acute fractures are appreciated. There is significant soft tissue edema likely representing cellulitis. No bony erosive changes are present to suggest acute osteomyelitis. Left foot: No definitive acute fractures are present in the left foot. There are erosive changes involving the interphalangeal joint of the first toe. Septic arthropathy cannot be excluded. Subchondral cystic changes are present in the first metatarsophalangeal joint with the related to degenerative osteoarthritis. There is severe swelling of the first toe with extension proximally along the left foot. There is mild to moderate degeneration of the first metatarsophalangeal joint. There is a tiny curvilinear radiopaque foreign bodies projecting along the plantar surface of the hindfoot. Present on the previous exam. XR/XR ankle LT min 3V IMPRESSION: 1. No acute osseous abnormalities in the left ankle. Imaging findings are concerning for loosening of the syndesmotic screws. 2. Erosive changes in the interphalangeal joint of the first digit could potentially be secondary to septic arthropathy. 3. Severe soft tissue swelling in the left foot osseous loose secondary to cellulitis. Electronically authenticated by: YUMIKO LERMA Date: 09/20/2024 21:43
--- NOTE | 2024-09-20 18:50 | PM.CN ---
Consult Note: [facility] Data of Consult Consult date: 09/20/24 Requesting Physician: Caden Mendez MD Primary Care Provider: Caden Mendez MD Consult Narrative Reason for consult: left diabetic foot infection Narrative: Patient is a 53-year-old male with type 2 diabetes and history of nonhealing ulceration and currently being treated in our wound center for left plantar hallux ulceration. Recently he has been treated with total contact cast for offloading and was doing very well and showing progress of healing however due to noncompliance and getting multiple cast wet as well as cutting the cast off in his garage he was placed into a cam boot at his most recent appointment which was within the last 2 weeks. He presented to the emergency department today relating to rapid onset of increased redness, swelling and pain to his left lower extremity. Labs revealed normal lactate, no leukocytosis, but moderate elevation in CRP and ESR. At bedside patient is sitting in chair eating dinner and has no complaints of systemic signs of infection including chest pain, shortness of breath, nausea, vomiting, fever, chills. Venous Doppler was already obtained and showed no evidence of clot. X-rays of the left foot and ankle have not been obtained cc:: CC: Caden Mendez MD Review of Systems ROS Status of ROS 10 or more systems reviewed and unremarkable except as noted in history and below [facility] Medical History Prolonged emergence from general anesthesia ?T88.59XA - Other complications of anesthesia, initial encounter (ICD-10) Pain management contract signed ?Z02.89 - Encounter for other administrative examinations (ICD-10) Back pain ?M54.9 - Dorsalgia, unspecified (ICD-10) PTSD (post-traumatic stress disorder) ?F43.10 - Post-traumatic stress disorder, unspecified (ICD-10) Depression ?F32.A - Depression, unspecified (ICD-10) Dysphagia ?R13.10 - Dysphagia, unspecified (ICD-10) Uvulitis ?K12.2 - Cellulitis and abscess of mouth (ICD-10) Insomnia ?G47.00 - Insomnia, unspecified (ICD-10) Migraine ?G43.909 - Migraine, unspecified, not intractable, without status migrainosus (ICD-10) GERD (gastroesophageal reflux disease) ?K21.9 - Gastro-esophageal reflux disease without esophagitis (ICD-10) Dyspnea on exertion ?R06.09 - Other forms of dyspnea (ICD-10) Heart valve disorder ?I38 - Endocarditis, valve unspecified (ICD-10) Hypoglycemia ?E16.2 - Hypoglycemia, unspecified (ICD-10) Delayed recovery from anesthesia Chronic foot ulcer ?L97.509 - Non-pressure chronic ulcer of other part of unspecified foot with unspecified severity (ICD-10) 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 - Central serous chorioretinopathy, unspecified eye (ICD-10) Chronic pain ?G89.29 - Other chronic pain (ICD-10) Narcolepsy ?G47.419 - 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) Anxiety ?F41.9 - Anxiety disorder, unspecified (ICD-10) Upper back pain ?M54.9 - Dorsalgia, unspecified (ICD-10) Low back pain ?M54.50 - Low back pain, unspecified (ICD-10) TMJ (dislocation of temporomandibular joint) ?S03.00XA - Dislocation of jaw, unspecified side, initial encounter (ICD-10) Obesity ?E66.9 - Obesity, unspecified (ICD-10) Sleep apnea ?G47.30 - Sleep apnea, unspecified (ICD-10) Hypertension ?I10 - Essential (primary) hypertension (ICD-10) Surgical History H/O foot surgery ?Z98.890 - Other specified postprocedural states (ICD-10) H/O radiofrequency ablation (RFA) of nerve of lumbar spine ?Z98.890 - Other specified postprocedural states (ICD-10) History of fusion of cervical spine ?Z98.1 - Arthrodesis status (ICD-10) H/O inguinal hernia repair ?Z98.890 - Other specified postprocedural states (ICD-10) ?Z87.19 - Personal history of other diseases of the digestive system (ICD-10) H/O repair of rotator cuff ?Z98.890 - Other specified postprocedural states (ICD-10) History of uvulopalatopharyngoplasty ?Z98.890 - Other specified postprocedural states (ICD-10) Family History Other Family history of diabetes mellitus Family history of hypertension Family history of myocardial infarction Family history of stroke Social History Within the past year, how often did you have a drink containing alcohol: monthly or less Smoking status: Never smoker Non-prescribed substance use: cannabis (any form) Previous occupational history: unemployed Highest level of school completed/degree received: some college, no degree Are you now , , , , never or living with a partner: Little interest or pleasure in doing things: not at all Feeling down, depressed, or hopeless: not at all Feel stressed/tense/nervous/anxious/difficulty sleeping: not at all Do you think of yourself as: don't know Gender Identity: male Meds Home Medications and Allergies Home Medications ?Medication ?Instructions ?Recorded ?Confirmed ?Type carvedilol 25 mg tablet 25 mg PO BID 06/14/23 09/20/24 History doxazosin 8 mg tablet 8 mg PO DAILY 06/14/23 09/19/24 History furosemide 20 mg tablet 20 mg PO DAILY 06/14/23 09/19/24 History gabapentin 600 mg tablet 1,200 mg PO .QHS 06/14/23 09/20/24 History glycopyrrolate 1 mg tablet 1 mg PO BID 06/14/23 09/19/24 History hydroxyzine pamoate 25 mg capsule 25 mg PO QPM 06/14/23 09/19/24 History pantoprazole 40 mg tablet,delayed 40 mg PO DAILY 06/14/23 09/19/24 History release simvastatin 20 mg tablet 20 mg PO .qhs 06/14/23 09/20/24 History modafinil 200 mg tablet 200 mg PO BID 09/04/23 09/19/24 History potassium chloride 10 mEq 10 meq PO Q12H 09/04/23 09/19/24 History tablet,extended release amantadine HCl 100 mg tablet 100 mg PO BID 12/28/23 09/19/24 History cholecalciferol (vitamin D3) 125 5,000 unit PO DAILY 12/28/23 09/19/24 History mcg (5,000 unit) capsule melatonin 10 mg capsule 10 mg PO .qhs 12/28/23 09/20/24 History multivitamin (Daily Multi-Vitamin 1 tab PO DAILY 12/28/23 09/19/24 History tablet) aspirin 81 mg tablet,delayed 81 mg PO BID 30 days #60 tabs 01/03/24 09/20/24 Rx release (Adult Low Dose Aspirin) biotin 10 mg tablet 10 mg PO DAILY 09/19/24 09/19/24 History citalopram 40 mg tablet 40 mg PO DAILY 09/20/24 09/20/24 History gabapentin 600 mg tablet 600 mg PO DAILY 09/20/24 09/20/24 History (Neurontin) testosterone cypionate 200 mg/mL 300 mg IM Q14D 09/20/24 09/20/24 History intramuscular oil tizanidine 4 mg tablet 4 mg PO .qhs 09/20/24 09/20/24 History Allergies Allergy/AdvReac Type Severity Reaction Status Date / Time No Known Drug Allergies Allergy Verified 08/29/24 04:34 Exam Narrative Exam Narrative: Skin: Full-thickness ulceration on plantar aspect of left hallux with significant swelling and erythema extending to the level of the knee. No pain on palpation. No fluctuance. Wound base is primarily granular with scant fibrotic tissue. No exposed bone but concern for flexor tendon involvement. Neuro: Absent protective and vibratory sensation Vascular: Palpable pedal pulses. Absent digital hair Musculoskeletal: Range of motion of the left ankle is slightly limited compared to the right ankle but does have history of ankle fracture. No significant deformity. Reduced range of motion of left great toe. Constitutional Vital Signs, click to edit/add: Last Vital Signs Temp 98 F 09/20/24 12:00 Pulse 90 09/20/24 17:00 Resp 19 09/20/24 17:00 BP 154/80 H 09/20/24 16:24 Pulse Ox 96 09/20/24 16:40 O2 Del Method Nasal Cannula 09/20/24 17:57 O2 Flow Rate 3 09/20/24 17:57 FiO2 35 09/20/24 16:00 Results Labs Labs: Short CBC 09/19/24 09/20/24 Range/Units 18:35 04:44 WBC 7.6 6.6 (4.0-11.0) 10^3/uL Hgb 14.0 13.8 L (14.0-18.0) g/dL Hct 44.6 45.1 (42.0-54.0) % Plt Count 182 171 (150-450) 10^3/uL BMP 09/19/24 09/20/24 18:35 04:44 Sodium 138 142 Potassium 3.7 4.0 Chloride 103 102 Carbon Dioxide 28.6 34.5 H BUN 12.0 11.0 Creatinine 1.04 1.00 Glucose 128 H 80 Calcium 9.2 8.7 Liver Function 09/19/24 09/20/24 Range/Units 18:35 04:44 Total Bilirubin 0.5 0.6 (0.2-1.0) mg/dL AST 29 28 (15-37) U/L ALT 25 27 (16-63) U/L Alkaline Phosphatase 111 109 (46-116) U/L Albumin 3.3 L 3.1 L (3.4-5.0) g/dL ABG ABG results: 09/19/24 09/20/24 18:35 12:35 ABG pH 7.353 ABG pCO2 62.0 H* ABG pO2 91.6 ABG HCO3 34.4 H ABG O2 Saturation 97.9 ABG Base Excess 8.9 H VBG pH 7.476 H VBG pCO2 39.3 L Assessment and Plan Assessment and Plan (1) Acute hypercapnic respiratory failure: (2) Ulcer of left foot with muscle involvement without evidence of necrosis: Assessment and Plan: Daily dressing changes with Santyl May weight-bear as tolerated to left heel (3) Type 2 diabetes mellitus with diabetic polyneuropathy: (4) Type 2 diabetes mellitus with foot ulcer: Plan Patient seen and evaluated. Patient education provided. Moderate elevation in inflammatory markers are consistent with cellulitis and are not consistent with acute osteomyelitis however infection has seemingly rapidly progressed and x-rays of the foot and ankle were ordered but not available for review at the time of this dictation. There is concern for flexor tendon involvement but is not frankly exposed. No evidence of abscess but leg is significantly swollen I would like to review his x-rays and his progress overnight to determine whether or not he needs surgical debridement therefore will place the patient n.p.o. after midnight for possible surgery tomorrow
[2024-09-20] MEDS: TIZANIDINE HCL 4 MG TABLET PO (20:51)
[2024-09-20 20:54] LABS: Glucometer 92 mg/dL (74-106)
[2024-09-20] MEDS: ATORVASTATIN CALCIUM 10 MG TABLET PO (23:12)
[2024-09-20] MEDS: GABAPENTIN 400 MG CAPSULE 1200 MG PO (23:41)
[2024-09-20] MEDS: SODIUM CHLORIDE 0.65% OCEAN NASAL SPRAY 1 SPRAY NS (23:42)
[2024-09-21] VITALS (71 sets, daily range): BP systolic 119–150; BP diastolic 67–97; PULSE 56–103; TEMP 36.6–36.9; O2SAT 80–97
[2024-09-21] MEDS: ACETAMINOPHEN 1,000 MG/100 ML PREMIX 400 MG IV (00:15)
[2024-09-21] MEDS: PIPERACILLIN SODIUM/TAZOBACTAM 3.375 GM in 0.9 % SODIUM CHLORIDE 50 ML IV ×3 (04:30→21:45)
[2024-09-21 04:39] LABS: pH ABG 7.419 (7.350-7.450)
[2024-09-21 04:40] LABS: Allen Test POSITIVE (POSITIVE); Base Excess ABG 11.5 mmol/L (-2.0-2.0); HCO3 ABG 36 mmol/L (22.0-26.0); Liters per Minute 3; O2 Mode NASAL CANNULA; Oxygen Saturation ABG 95.4 %; PO2 ABG 71.3 mmHg (80.0-100.0); Puncture Site RR
[2024-09-21 04:42] LABS: ABG PCO2 55.6 mmHg (35.0-45.0)
[2024-09-21 04:54] LABS: Basophils Percent Auto 0.5 % (0.2-2.0); Eosinophils Absolute Auto 0.1 10^3/uL (0.0-0.7); Eosinophils Percent Auto 1.5 % (0.9-7.0); Hemoglobin 14.2 g/dL (14.0-18.0); Immature Granulocytes Abs Auto 0.09 10^3/uL (0.00-0.03); Immature Granulocytes Pct Auto 1.2 % (0.0-0.5); Lymphocytes Absolute Auto 0.7 10^3/uL (1.2-3.8); Lymphocytes Percent Auto 9.6 % (20.5-60.0); Mean Corpuscular HGB Conc 30.9 g/dL (29.9-35.2); Mean Corpuscular Hemoglobin 27.2 pg (25.9-34.0); Monocytes Absolute Auto 0.8 10^3/uL (0.3-0.8); Monocytes Percent Auto 10.3 % (1.7-12.0); Neutrophils Absolute Auto 5.8 10^3/uL (1.4-6.5); Neutrophils Percent Auto 76.9 % (43.0-75.0); Platelet Count 190 10^3/uL (150-450); Red Blood Count 5.23 10^6/uL (4.70-6.10); Red Cell Distribution Width 15.3 % (11.0-15.0); White Blood Count 7.5 10^3/uL (4.0-11.0)
[2024-09-21 05:03] LABS: Anion Gap 5.8; C Reactive Protein 1.65 mg/dL (<=0.50); Calcium 8.8 mg/dL (8.5-10.1); Carbon Dioxide 36.8 mmol/L (21.0-32.0); Chloride 101 mmol/L (98-107); Estimated GFR (African America >60 (>=60 mL/min/1.73m^2); Estimated GFR (Non-African Ame >60 (>=60 mL/min/1.73m^2); Glucose 113 mg/dL (74-106); Potassium 3.6 mmol/L (3.5-5.1); Sodium 140 mmol/L (136-145)
[2024-09-21 07:45] LABS: Glucometer 108 mg/dL (74-106)
--- NOTE | 2024-09-21 08:02 | P.PLPN_ITS ---
Progress Note: A&P Assessment and Plan (1) Acute hypercapnic respiratory failure: Assessment and Plan: [place] [address] Pulmonology Consult Note Signed Patient: MATTY WADE MR#: [id number] : 1970 Acct:[id number] Age/Sex: 53 / M ADM Date: 09/20/24 Loc: ICU 270-1 Date of Service: 09/20/24Attending Dr: Caden Mendez M.D. cc: Caden Mendez M.D.; [place] D.O.~ History of Present Illness History of Present Illness Consult date: 09/20/24 Requesting physician: Caden Mendez Reason for consult: obstructive sleep apnea (with hypercapnia) Chief complaint: CELLULITIS LLE Narrative: 53yo male admitted with cellulitis last night. This morning, the nurses noticed that the patient appeared up to noted. They had difficulty awakening him. His SpO2 was in the 60s on room air. He was snoring loudly. He was started on a CPAP, but did not tolerate that and was changed to BiPAP. Pulmonary was eventually consulted for further management. I spoke with respiratory therapy who was in the room this afternoon when I saw the patient. He was placed on a BiPAP 18/10, RR 14, FiO2 35%. Patient saturations were in the 90s. It took a few minutes for the patient to wake up after taking the BiPAP off, but then he was able to speak. He appeared tired, but was making sense. 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 He also is being looked into having narcolepsy. He currently has no sleep specialist. He is on multiple medications from multiple providers he states. He is concerned that there are drug interactions. He states 10 years ago, he had to sit down and go through all his medications because he is on so many and as he states he was on medications to treat side effects from side effects from other medications. I did a perspective drug review of his home medications along with currently prescribed medications. He is on multiple sedating medications including gabapentin, tizanidine, doxepin, hydroxyzine, melatonin. He was prescribed hydrocodone/APAP for pain. Additionally, due to hypersomnolence, he is also on modafinil 200 mg twice daily. Review of Systems ROS Status of ROS 10 or more systems reviewed and unremark able except as noted in history and below Integumentary/Breast Reports: skin swelling (Left lower extremity cellulitis) [facility] Medical History Prolonged emergence from general anesthesia ?T88.59XA - Other complications of anesthesia, initial encounter (ICD-10)Pain management contract signed ?Z02.89 - Encounter for other administrative examinations (ICD-10)Back pain ?M54.9 - Dorsalgia, unspecified (ICD-10)PTSD (post-traumatic stress disorder) ?F43.10 - Post-traumatic stress disorder, unspecified (ICD-10)Depression ?F32.A - Depression, unspecified (ICD-10)Dysphagia ?R13.10 - Dysphagia, unspecified (ICD-10)Uvulitis ?K12.2 - Cellulitis and abscess of mouth (ICD-10)Insomnia ?G47.00 - Insomnia, unspecified (ICD-10)Migraine ?G43.909 - Migraine, unspecified, not intractable, without status migrainosus (ICD-10)GERD (gastroesophageal reflux disease) ?K21.9 - Gastro-esophageal reflux disease without esophagitis (ICD-10)Dyspnea on exertion ?R06.09 - Other forms of dyspnea (ICD-10)Heart valve disorder ?I38 - Endocarditis, valve unspecified (ICD-10)Hypoglycemia ?E16.2 - Hypoglycemia, unspecified (ICD-10)Delayed recovery from anesthesia Chronic foot ulcer ?L97.509 - Non-pressure chronic ulcer of other part of unspecified foot with unspecified severity (ICD-10)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 - Central serous chorioretinopathy, unspecified eye (ICD-10)Chronic pain ?G89.29 - Other chronic pain (ICD-10)Narcolepsy ?G47.419 - 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)Anxiety ?F41.9 - Anxiety disorder, unspecified (ICD-10)Upper back pain ?M54.9 - Dorsalgia, unspecified (ICD-10)Low back pain ?M54.50 - Low back pain, unspecified (ICD-10)TMJ (dislocation of temporomandibular joint) ?S03.00XA - Dislocation of jaw, unspecified side, initial encounter (ICD- 10)Obesity ?E66.9 - Obesity, unspecified (ICD-10)Sleep apnea ?G47.30 - Sleep apnea, unspecified (ICD-10)Hypertension ?I10 - Essential (primary) hypertension (ICD-10) Surgical History H/O foot surgery ?Z98.890 - Other specified postprocedural states (ICD-10)H/O radiofrequency ablation (RFA) of nerve of lumbar spine ?Z98.890 - Other specified postprocedural states (ICD-10)History of fusion of cervical spine ?Z98.1 - Arthrodesis status (ICD-10)H/O inguinal hernia repair ?Z98.890 - Other specified postprocedural states (ICD-10) ?Z87.19 - Personal history of other diseases of the digestive system (ICD-10)H/O repair of rotator cuff ?Z98.890 - Other specified postprocedural states (ICD-10)History of uvulopalatopharyngoplasty ?Z98.890 - Other specified postprocedural states (ICD-10) Family History Other Family history of diabetes mellitus Family history of hypertension Family history of myocardial infarction Family history of stroke Social History Within the past year, how often did you have a drink containing alcohol: monthly or less Smoking status: Never smoker Non-prescribed substance use: cannabis (any form) Previous occupational history: unemployed Highest level of school completed/degree received: some college, no degree Are you now , , , , never or living with a partner: Little interest or pleasure in doing things: not at all Feeling down, depressed, or hopeless: not at all Feel stressed/tense/nervous/anxious/difficulty sleeping: not at all Do you think of yourself as: don't know Gender Identity: male Meds Home Medications and Allergies Home Medications ?Medication ?Instructions ?Recorded ?Confirmed ?Type carvedilol 25 mg tablet 25 mg PO BID 06/14/23 09/20/24 History doxazosin 8 mg tablet 8 mg PO DAILY 06/14/23 09/19/24 History furosemide 20 mg tablet 20 mg PO DAILY 06/14/23 09/19/24 History gabapentin 600 mg tablet 1,200 mg PO .QHS 06/14/23 09/20/24 History glycopyrrolate 1 mg tablet 1 mg PO BID 06/14/23 09/19/24 History hydroxyzine pamoate 25 mg capsule 25 mg PO QPM 06/14/23 09/19/24 History pantoprazole 40 mg tablet,delayed 40 mg PO DAILY 06/14/23 09/19/24 History release simvastatin 20 mg tablet 20 mg PO .qhs 06/14/23 09/20/24 History modafinil 200 mg tablet 200 mg PO BID 09/04/23 09/19/24 History potassium chloride 10 mEq 10 meq PO Q12H 09/04/23 09/19/24 History tablet,extended release amantadine HCl 100 mg tablet 100 mg PO BID 12/28/23 09/19/24 History cholecalciferol (vitamin D3) 125 5,000 unit PO DAILY 12/28/23 09/19/24 History mcg (5,000 unit) capsule melatonin 10 mg capsule 10 mg PO .qhs 12/28/23 09/20/24 History multivitamin (Daily Multi-Vitamin 1 tab PO DAILY 12/28/23 09/19/24 History tablet) aspirin 81 mg tablet,delayed 81 mg PO BID 30 days #60 tabs 01/03/24 09/20/24 Rx release (Adult Low Dose Aspirin) biotin 10 mg tablet 10 mg PO DAILY 09/19/24 09/19/24 History citalopram 40 mg tablet 40 mg PO DAILY 09/20/24 09/20/24 History gabapentin 600 mg tablet 600 mg PO DAILY 09/20/24 09/20/24 History (Neurontin) testosterone cypionate 200 mg/mL 300 mg IM Q14D 09/20/24 09/20/24 History intramuscular oil tizanidine 4 mg tablet 4 mg PO .qhs 09/20/24 09/20/24 History Allergies Allergy/AdvReac Type Severity Reaction Status Date / Time No Known Drug Allergies Allergy Verified 08/29/24 04:34 Exam Constitutional Vital Signs, click to edit/add: Last Vital Signs Temp 98 F 09/20/24 12:00 Pulse 90 09/20/24 17:00 Resp 19 09/20/24 17:00 BP 154/80 H 09/20/24 16:24 Pulse Ox 96 09/20/24 16:40 O2 Del Method BIPAP 09/20/24 14:06 O2 Flow Rate 3 09/20/24 10:55 FiO2 35 09/20/24 16:00 Documenting provider has reviewed patient's vital signs: yes Other: Patient was initially obtunded and difficult to arouse, but he eventually woke up and was waking clear, cohesive sentences. HENMT Other: Wearing nasal cannula after took BiPAP mask off. Mallampati class IV with macroglossia & tongue ridging. Chest Common normals: inspection of chest normal Respiratory Auscultation: clear to auscultation bilaterally Cardio Rate: regular rate Rhythm: regular rhythm GI Inspection: central obesity Extremity Other: Findings consistent with cellulitis on the left lower extremity/leg Neuro Motor exam: no tremor noted and no fasciculations Psych Other: Patient was initially obtunded, but after he woke up, he was speaking coherently with fluid thoughts. Results Laboratory Findings ABG, PT/INR, D-dimer: ABG ABG pH 7.353 (7.350-7.450) 09/20/24 12:35 ABG pCO2 62.0 mmHg (35.0-45.0) H* 09/20/24 12:35 ABG pO2 91.6 mmHg (80.0-100.0) 09/20/24 12:35 ABG O2 Saturation 97.9 % 09/20/24 12:35 Abnormal lab findings: Abnormal Labs 09/19/24 09/20/24 09/20/24 18:35 04:44 07:19 Hgb 13.8 L RDW 15.1 H 15.2 H Lymph % (Auto) 10.4 L Lymph # (Auto) 0.7 L Abs Immat Gran (auto) 0.07 H Seg Neuts % (Manual) 77.0 H Lymphocytes % (Manual) 6.0 L Imm/Tot Granulo (auto) 1.1 H Lymphocytes # (Manual) 0.45 L ESR 51 H ABG pCO2 ABG HCO3 ABG Base Excess VBG pH 7.476 H VBG pCO2 39.3 L Carbon Dioxide 34.5 H Glucose 128 H C-Reactive Protein 2.51 H Albumin 3.3 L 3.1 L POC Glucose 159 H 09/20/24 09/20/24 09/20/24 11:05 12:35 16:18 Hgb RDW Lymph % (Auto) Lymph # (Auto) Abs Immat Gran (auto) Seg Neuts % (Manual) Lymphocytes % (Manual) Imm/Tot Granulo (auto) Lymphocytes # (Manual) ESR ABG pCO2 62.0 H* ABG HCO3 34.4 H ABG Base Excess 8.9 H VBG pH VBG pCO2 Carbon Dioxide Glucose C-Reactive Protein Albumin POC Glucose 122 H 182 H Assessment and Plan Assessment and Plan (1) Acute hypercapnic respiratory failure: Assessment and Plan: 1. Acute on chronic hypercapnic respiratory failure. Patient has resting hypercapnia with pCO2 >55 this AM without wearing BiPAP. 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 With how obtunded he was yesterday, I stated it is paramount that he be treated for PATEL/OHS which is via BiPAP. He is now refusing the BiPAP despite the lengthy conversation we had yesterday. I stated that OHS can increase his risk of mortality, as he could develop even worsening hypercapnia at home, become obtunded, and if no one is around, he could . He stated life is not worth living. I asked him if he had any plans on harming himself or wanted to . He stated that is not what he told me. I explained that I am verifying that he is not having any suicidal ideations or thoughts. He voiced no. I once again addressed the extreme importance of being treated for the OHS. He continues to refuse. If he has surgery, he is at extremely high risk for perioperative respiratory failure likely requiring a ventilator postoperative. I explained this to the patient and he still refused any BiPAP therapy. As he is refusing treatment, I have nothing further to contribute to his care at this time. I would continue avoiding any possible sedating agents. 2. PATEL with OHS. As above. Patient does have OHS now that his resting hypercapnia is pCO2 >55. He is refusing BiPAP. 3. Insomnia. Question if the insomnia is associated with the modafinil use to treat hypersomnia. I would recommend an extensive chart review regarding polypharmacy with possible over sedating medications. If refuses BiPAP, I would definitely not recommend any sleeping aids. Avoid opiates and benzodiazepines as much as possible. 4. Polypharmacy. Please see note from yesterday. 5. Obesity with a BMI of 38.5. He has underlying PATEL that is not treated, resting pCO2 >55 = OHS. Plan Patient refuses BiPAP; I am signing off. There is no need to follow-up with me outpatient as he refuses treatment. Subjective Subjective Interval history: Despite the extensive discussion with the patient yesterday regarding polypharmacy and concerns of oversedation contributing to hypercapnia, the patient then refused to wear his BiPAP at all. ABG repeated this morning continues to show a underlying hypercapnia, confirming he has obesity hypoventilation syndrome. I explained the risks of untreated PATEL/OHS, patient stated that he understood and did not care. I discussed that he has increased risk of mortality associated with respiratory failure. Despite this, he continues to refuse BiPAP. Exam Constitutional Vital Signs, click to edit/add: Last Vital Signs Temp 98.5 F 09/21/24 04:00 Pulse 82 09/21/24 04:00 Resp 16 09/21/24 04:00 BP 132/83 09/21/24 04:00 Pulse Ox 94 L 09/21/24 04:00 O2 Del Method Nasal Cannula 09/21/24 00:00 O2 Flow Rate 3 09/21/24 04:00 FiO2 35 09/21/24 04:00 Documenting provider has reviewed patient's vital signs: yes Other: Patient was initially obtunded and difficult to arouse, but he eventually woke up and was waking clear, cohesive sentences. HENMT Other: Wearing nasal cannula. Chest Common normals: inspection of chest normal Respiratory Auscultation: clear to auscultation bilaterally Cardio Rate: regular rate Rhythm: regular rhythm GI Inspection: central obesity Neuro Motor exam: no tremor noted and no fasciculations Psych Other: Patient appears somnolent, but is able to have a coherent conversation
--- NOTE | 2024-09-21 08:04 | P.PN_ITS ---
Progress Note: Subjective Subjective Interval history: Patient is awake today, did not sleep well last night, does not like to sleep with the CPAP on did explain to him the benefits of not having hypoxia Exam Constitutional Vital Signs, click to edit/add: Last Vital Signs Temp 98.5 F 09/21/24 04:00 Pulse 82 09/21/24 04:00 Resp 16 09/21/24 04:00 BP 132/83 09/21/24 04:00 Pulse Ox 94 L 09/21/24 04:00 O2 Del Method Nasal Cannula 09/21/24 00:00 O2 Flow Rate 3 09/21/24 04:00 FiO2 35 09/21/24 04:00 Documenting provider has reviewed patient's vital signs: yes Common normals: no apparent distress Respiratory Common normals: normal respiratory effort and no retractions Auscultation: diminished lung sounds Cardio Common normals: regular rate and regular rhythm GI Common normals: negative for Normal to inspection, nondistended, normoactive bowel sounds present (Obese) Extremity Common normals: abnormal to inspection (Erythema, calor, dolor left lower extremity up to the level of the knee, ) Other: Foot ulcer with dressing in place on left foot Progress Note: Objective Labs Labs: Short CBC 09/21/24 Range/Units 04:26 WBC 7.5 (4.0-11.0) 10^3/uL Hgb 14.2 (14.0-18.0) g/dL Hct 46.0 (42.0-54.0) % Plt Count 190 (150-450) 10^3/uL BMP 09/21/24 04:26 Sodium 140 Potassium 3.6 Chloride 101 Carbon Dioxide 36.8 H BUN 6.0 L Creatinine 1.21 Glucose 113 H Calcium 8.8 Progress Note: A&P Assessment and Plan (1) Acute hypercapnic respiratory failure: (2) Ulcer of left foot with muscle involvement without evidence of necrosis: (3) Type 2 diabetes mellitus with diabetic polyneuropathy: (4) Type 2 diabetes mellitus with foot ulcer: Plan Admission findings: Increasing pain, uncontrolled hypertension, rapidly progressive cellulitis of left lower extremity with wound failing outpatient treatment to the wound center bottom of left foot Rapidly progressing cellulitis left lower extremity with possible septic arthritis is noted on x-ray findings-, happened over the course of just hours- continue with IV antibiotics Zosyn and vancomycin. Consult to wound, possible surgical intervention today based on x-ray findings and evaluation by podiatry, CRP is improving, maintain current antibiotics Acute on chronic hypoxic respiratory failure secondary to severe sleep apnea untreated-patient also diagnosed with narcolepsy, encourage patient to wear CPAP at nighttime, plan is in process for obtaining outpatient sleep study to have patient have retitrated for new CPAP equipment. Sedation medications were adjusted yesterday, maintain medications for narcolepsy Diabetes mellitus-insulin sliding scale Hypertension-continue with home medications Anxiety and depression continue with home medications Insomnia-holding sedation medications secondary to hypoxia Peripheral neuropathy-continue with home medications Narcolepsy-continue with home medications GERD-continue with home medications Hypercholesterolemia-continue with home medications Low back pain-continue with home medications Admission status: Patient initially placed in observation status, if the leg looks better today could possibly be discharged with oral antibiotics, but that seems unlikely will see how the day progresses, more than likely will need to change to inpatient status is medically necessary treatment will span 2 midnights ?
[2024-09-21] MEDS: AMANTADINE HCL 100 MG CAPSULE PO ×2 (08:57→21:39)
[2024-09-21] MEDS: OMEPRAZOLE 40 MG CAPSULE.DR PO (08:57)
[2024-09-21] MEDS: FUROSEMIDE 20 MG TABLET PO (08:57)
[2024-09-21] MEDS: DOXAZOSIN MESYLATE 2 MG TABLET 8 MG PO (08:57)
[2024-09-21] MEDS: POTASSIUM CHLORIDE 10 MEQ ER TABLET PO ×2 (08:57→21:39)
[2024-09-21] MEDS: CHOLECALCIFEROL (VITAMIN D3) 125 MCG/5,000 UNIT TABLET PO (08:57)
[2024-09-21] MEDS: MULTIVITAMIN TABLET 1 TAB PO (08:57)
[2024-09-21] MEDS: ASPIRIN 81 MG TABLET.DR PO ×2 (08:57→21:39)
[2024-09-21] MEDS: GABAPENTIN 300 MG CAPSULE 600 MG PO (08:57)
[2024-09-21] MEDS: CITALOPRAM HYDROBROMIDE 20 MG TABLET 40 MG PO (08:57)
[2024-09-21] MEDS: CARVEDILOL 25 MG TABLET PO ×2 (08:57→21:39)
[2024-09-21] MEDS: MODAFINIL 100 MG TABLET 200 MG PO ×2 (09:00→11:45)
--- NOTE | 2024-09-21 09:12 | P.ORON_ITS ---
Brief Operative Note Date of procedure: 09/21/24 Pre-op diagnosis general: Left foot ulcer with deep fascial involvement, cellu litis, type 2 diabetes with neuropathy and foot ulcer Post-op diagnosis: same as pre-op Procedure: Procedure performed: Excisional debridement down to and including fat and fascia left foot ulcer Indications for procedure: Patient is a 53-year-old male who was admitted yesterday for left leg cellulitis/diabetic foot infection. Please see my consultation note for details. Yesterday I ordered x-rays which demonstrated loosening of the syndesmotic screw fixation which is expected and I do not believe contributing to the patient's current illness. The radiologist also noted erosive changes of the great toe noting septic arthritis cannot be excluded. Although I agree with the interpretation the patient's clinical findings do not support deep space infection. At bedside today he is resting comfortably and relates that he is feeling improved. Examination demonstrates residual erythema to the level of the knee which is less intense. No pain on palpation or with attempted range of motion of the great toe, passively or actively. No evidence of deep sinus or bone/tendon exposure. However given the patient's rapid onset of infection I recommended excisional debridement to treat the patient's nonhealing diabetic foot ulcer but also to ensure no underlying abscess, sinus or bone/tendon involvement. I explained this to the patient and answered all of his questions. He provided written and verbal consent. Intraoperative findings: 2.1 x 2.2 cm ulceration on the plantar aspect of the left great toe. No undermining, tunneling or sinus track was observed. Fat and fascia were in fact involved but no evidence of tendon or bone involvement. No purulence. Ulcer base was approximately 80% granular and 20% fibrotic prior to debridement. Ulcer did bleed appropriately. Procedure in detail: At bedside written and verbal consent was obtained and a clean field was used. No anesthesia was necessary due to neuropathy. Correct side and site were confirmed. Excisional debridement was performed with a scalpel down to and including fat and fascia excising all nonviable or questionable tissue. Periwound hyperkeratosis was also removed sharply which also included any areas of senescence. The ulcer base was then further debrided with curettes to 100% healthy granular tissue bed. Surgical site was irrigated. Culture swab was used to obtain a specimen from the ulcer bed. Hemostasis was controlled on the field with temporary pressure. Estimated blood loss was 10 cc. No deep space infection was identified. Dry sterile dressing was applied and patient tolerated the procedure well. Postoperative plan: Patient may bear weight to his left heel in cam boot or surgical shoe Daily dressing change with Santyl should be performed by nursing Follow culture aerobic and anaerobic Continue medical management and broad-spectrum antibiotics Will follow Implants: none Anesthesia: none (Patient has profound peripheral neuropathy therefore no anesthesia was necessary) Surgeon: Trey Vallejo Estimated blood loss (mL): 10 Tourniquet time (min): 0 Pathology: other (Tissue swab) Condition: stable
[2024-09-21 11:12] LABS: Glucometer 141 mg/dL (74-106)
[2024-09-21] MEDS: VANCOMYCIN HCL 1,750 MG in 0.9 % SODIUM CHLORIDE 500 ML 250 MG IV ×2 (11:45→23:02)
--- NOTE | 2024-09-21 12:10 | REH.PTDLY ---
Physical Therapy Daily Note PT Daily Note/Assess Start: 09/21/24 11:58 Freq: Status: Active Protocol: Document 09/21/24 11:59 PEARL (Rec: 09/21/24 12:10 PEARL [id number]) Physical Therapy Daily Note/Assessment Time In 11:32 Time Out 11:48 Subjective Checked with pt's nurse Mansi prior to session about weight bearing status. Nursing states pt is WBAT to the heel, has been no change or new orders put in regarding WB status and pt is ok to be seen by PT. Pt up and ambulating with crutches yesterday. Pt denies any pain currently. Therapeutic Exercise 6 Minutes (minutes) Therapeutic Exercise 0 Units Therapeutic Exercise Instructed in bedside seated exs 10x ea for improved Treatment strength with exs including AP, marching, LAQ and hip abd slides. Therapeutic Activity 8 Minutes (minutes) Therapeutic Activity 1 Units Therapeutic Activity Sit to stand transfers CGA with pt only placing heel on Comments floor. Gait training with crutches CGA with heel only weight bearing 60 feet with cues to keep pt on task. Pt Ind with seated transfers in chair. Legs elevated in recliner post rx with nursing in room. Total Therapy 14 Minutes Total Physical 1 Therapy Units Daily Note Summary Pt requires CGA for safety with transfers and gait. No complaints of increased pain during rx.
--- NOTE | 2024-09-21 15:33 | PC.NURSE ---
pt HR 48, this nurse entered pts room. pt asleep, apneic with snorous respirations. O2 off and spo2 probe off pt. replaced both. attempted to educate pt on benefits of wearing bipap and/or keeping O2 on. pt rolled eyes a this nurse.
[2024-09-21 16:59] LABS: Glucometer 118 mg/dL (74-106)
[2024-09-21] MEDS: GABAPENTIN 400 MG CAPSULE 1200 MG PO (21:38)
[2024-09-21] MEDS: TIZANIDINE HCL 4 MG TABLET PO (21:39)
[2024-09-21] MEDS: ATORVASTATIN CALCIUM 10 MG TABLET PO (21:39)
[2024-09-21] MEDS: INSULIN ASPART 300 UNIT/3 ML PEN SUBQ (21:47)
[2024-09-21 21:50] LABS: Glucometer 150 mg/dL (74-106)
[2024-09-21] MEDS: ENOXAPARIN SODIUM 40 MG/0.4 ML SYRINGE SUBQ (21:50)
[2024-09-22] VITALS (14 sets, daily range): BP systolic 137–148; BP diastolic 82–93; PULSE 69–80; TEMP 36.6–36.9; O2SAT 95
[2024-09-22] MEDS: PIPERACILLIN SODIUM/TAZOBACTAM 3.375 GM in 0.9 % SODIUM CHLORIDE 50 ML IV (04:21)
[2024-09-22 05:06] LABS: Basophils Absolute Auto 0.1 10^3/uL (0.0-0.1); Basophils Percent Auto 0.8 % (0.2-2.0); Eosinophils Absolute Auto 0.1 10^3/uL (0.0-0.7); Eosinophils Percent Auto 1.9 % (0.9-7.0); Hematocrit 47.8 % (42.0-54.0); Hemoglobin 14.6 g/dL (14.0-18.0); Immature Granulocytes Abs Auto 0.09 10^3/uL (0.00-0.03); Immature Granulocytes Pct Auto 1.4 % (0.0-0.5); Lymphocytes Absolute Auto 0.8 10^3/uL (1.2-3.8); Lymphocytes Percent Auto 13.2 % (20.5-60.0); Mean Corpuscular HGB Conc 30.5 g/dL (29.9-35.2); Mean Corpuscular Hemoglobin 26.4 pg (25.9-34.0); Mean Corpuscular Volume 86.6 fL (80.0-94.0); Mean Platelet Volume 9.8 fL (9.5-13.5); Monocytes Absolute Auto 0.7 10^3/uL (0.3-0.8); Monocytes Percent Auto 10.7 % (1.7-12.0); Neutrophils Absolute Auto 4.6 10^3/uL (1.4-6.5); Platelet Count 186 10^3/uL (150-450); Red Blood Count 5.52 10^6/uL (4.70-6.10); Red Cell Distribution Width 15.2 % (11.0-15.0); White Blood Count 6.4 10^3/uL (4.0-11.0)
[2024-09-22 05:27] LABS: Anion Gap 9.6; BUN Creatinine Ratio 6.9; C Reactive Protein 0.89 mg/dL (<=0.50); Calcium 8.9 mg/dL (8.5-10.1); Carbon Dioxide 32.1 mmol/L (21.0-32.0); Chloride 102 mmol/L (98-107); Estimated GFR (African America >60 (>=60 mL/min/1.73m^2); Estimated GFR (Non-African Ame >60 (>=60 mL/min/1.73m^2); Glucose 116 mg/dL (74-106); Potassium 3.7 mmol/L (3.5-5.1); Sodium 140 mmol/L (136-145)
[2024-09-22 05:29] LABS: Vancomycin Trough 22.4 ug/mL (5.0-20.0)
[2024-09-22 07:17] LABS: Glucometer 124 mg/dL (74-106)
--- NOTE | 2024-09-22 07:32 | P.DS_ITS ---
DS: Providers Provider Date of admission: 09/20/24 13:25 Primary care physician: Caden Mendez MD Consults: 09/20/24 Consult to Wound Care Routine Consulting Provider: Ulises Spencer Reason for consultation: left leg cellulits and great toe wound Has provider been notified: Yes 09/20/24 06:25 Consult to Pharmacy Routine Consulting Provider: Reason for consultation: Please [place] me when Med Rec is Updated Has provider been notified: No Consult to Podiatry Routine Consulting Provider: Trey Vallejo Reason for consultation: Foot Wound Has provider been notified: No Occupational Therapy Eval and Treat Routine Reason for consultation: Only if needed for Rehab Has provider been notified: No Physical Therapy Eval and Treat Routine Reason for consultation: Eval and Treat Has provider been notified: No 09/20/24 12:36 Consult to Pulmonology Routine Consulting Provider: [place] Reason for consultation: sleep apnea Has provider been notified: No DS: Diagnosis Discharge Diagnosis (1) Acute hypercapnic respiratory failure: (2) Ulcer of left foot with muscle involvement without evidence of necrosis: (3) Type 2 diabetes mellitus with diabetic polyneuropathy: (4) Type 2 diabetes mellitus with foot ulcer: Plan Admission findings: Increasing pain, uncontrolled hypertension, rapidly progressive cellulitis of left lower extremity with wound failing outpatient treatment to the wound center bottom of left foot Rapidly progressing cellulitis left lower extremity with possible septic arthritis is noted on x-ray findings-, happened over the course of just hours- continue with IV antibiotics Zosyn and vancomycin. Consult to wound, possible surgical intervention today based on x-ray findings and evaluation by podiatry, CRP is improving, maintain current antibiotics Acute on chronic hypoxic respiratory failure secondary to severe sleep apnea untreated-patient also diagnosed with narcolepsy, encourage patient to wear CPAP at nighttime, plan is in process for obtaining outpatient sleep study to have patient have retitrated for new CPAP equipment. Hold sedation medications at home, sleep study at home Diabetes mellitus-stable monitor as an outpatient Hypertension-continue with home medications Anxiety and depression continue with home medications Insomnia-holding sedation medications secondary to hypoxia Peripheral neuropathy-continue with home medications Narcolepsy-continue with home medications GERD-continue with home medications Hypercholesterolemia-continue with home medications Low back pain-continue with home medications Admission status: Patient initially placed in observation status, if the leg looks better today could possibly be discharged with oral antibiotics, but that seems unlikely will see how the day progresses, more than likely will need to change to inpatient status is medically necessary treatment will span 2 midnights ? ? DS: Summary Hospital Course Hospital Course: Patient was admitted with rapidly progressing cellulitis of his left lower extremity originating from diabetic foot wound, was normal and woke up but over the course of several hours was started progressing rapidly up his calf, he was treated aggressively with IV antibiotics, yesterday had a wound debridement, erythema is much improved from admission, now well inside the line of demarcation. Only other issue was his severe sleep apnea and he had acute hypoxic respiratory failure requiring BiPAP ventilation was with hypersomnolence on day 2 of hospitalization, medications were adjusted, he was placed on BiPAP for extended period of time, currently with adjustment in sedation medications he is much improved, still has sleep apnea refusing to wear BiPAP here, states mask does not fit right, his repeat ABG was much improved with pCO2 of under 60, was over 60 during his acute hypoxic respiratory failure event. At this point he is medically stable for discharge. Work on outpatient testing for sleep apnea and continue with antibiotics for cellulitis. Medications see this. See me in the office next week. Time Spent with Patient Time attestation: Total time spent providing and/or coordinating discharge services: Exam Constitutional Vital Signs, click to edit/add: Last Vital Signs Temp 98 F 09/22/24 04:00 Pulse 72 09/22/24 07:20 Resp 15 09/22/24 07:20 BP 137/93 H 09/22/24 07:15 Pulse Ox 95 09/22/24 06:42 O2 Del Method Nasal Cannula 09/22/24 07:00 O2 Flow Rate 3 09/22/24 07:00 FiO2 35 09/22/24 04:00 Documenting provider has reviewed patient's vital signs: yes Common normals: no apparent distress Respiratory Common normals: normal respiratory effort and no retractions Auscultation: diminished lung sounds Cardio Common normals: regular rate and regular rhythm GI Common normals: negative for Normal to inspection, nondistended, normoactive bowel sounds present (Obese) Extremity Common normals: abnormal to inspection (Erythema now well inside the line of demarcation.) General: cyanosis Other: Foot ulcer with dressing in place on left foot DS: Data Data Completed and Pending Labs on day of discharge: Labs from last 24 hours 09/22/24 09/22/24 09/21/24 07:14 04:22 21:46 WBC 6.4 RBC 5.52 Hgb 14.6 Hct 47.8 MCV 86.6 MCH 26.4 MCHC 30.5 RDW 15.2 H Plt Count 186 MPV 9.8 Neut % (Auto) 72.0 Lymph % (Auto) 13.2 L Christian % (Auto) 10.7 Eos % (Auto) 1.9 Baso % (Auto) 0.8 Neut # (Auto) 4.6 Lymph # (Auto) 0.8 L Christian # (Auto) 0.7 Eos # (Auto) 0.1 Baso # (Auto) 0.1 Abs Immat Gran (auto) 0.09 H Imm/Tot Granulo (auto) 1.4 H Sodium 140 Potassium 3.7 Chloride 102 Carbon Dioxide 32.1 H Anion Gap 9.6 BUN 7.0 Creatinine 1.01 Est GFR ( Amer) >60 Est GFR (Non-Af Amer) >60 BUN/Creatinine Ratio 6.9 Glucose 116 H Calcium 8.9 C-Reactive Protein 0.89 H Vancomycin Trough 22.4 H POC Glucose 124 H 150 H 09/21/24 09/21/24 09/21/24 16:57 11:10 07:33 WBC RBC Hgb Hct MCV MCH MCHC RDW Plt Count MPV Neut % (Auto) Lymph % (Auto) Christian % (Auto) Eos % (Auto) Baso % (Auto) Neut # (Auto) Lymph # (Auto) Christian # (Auto) Eos # (Auto) Baso # (Auto) Abs Immat Gran (auto) Imm/Tot Granulo (auto) Sodium Potassium Chloride Carbon Dioxide Anion Gap BUN Creatinine Est GFR ( Amer) Est GFR (Non-Af Amer) BUN/Creatinine Ratio Glucose Calcium C-Reactive Protein Vancomycin Trough POC Glucose 118 H 141 H 108 H Preliminary micro results at discharge 09/19/24 20:07 Blood Culture Result 2 - Preliminary Blood NO GROWTH AT 36-48 HOURS. FINAL TO FOLLOW. 09/19/24 18:35 Blood Culture Result 1 - Preliminary Blood - Left Antecubital NO GROWTH AT 36-48 HOURS. FINAL TO FOLLOW. Discharge Plan Discharge Disposition: Home, Self-Care Discharge Medications: New cefdinir 300 mg capsule 600 mg PO DAILY Qty: 30 0RF doxycycline monohydrate 100 mg capsule 100 mg PO BID Qty: 30 0RF Continued potassium chloride 10 mEq tablet extended release 10 meq PO Q12H modafinil 200 mg tablet 200 mg PO BID Patient Comments: am and noon gabapentin 600 mg tablet 1,200 mg PO .QHS Rx Instructions: 600 MG QAM AND 1200 MG QHS carvedilol 25 mg tablet 25 mg PO BID Rx Instructions: must administer with a meal/food doxazosin 8 mg tablet 8 mg PO DAILY simvastatin 20 mg tablet 20 mg PO .qhs pantoprazole 40 mg tablet,delayed release (DR/EC) 40 mg PO DAILY glycopyrrolate 1 mg tablet 1 mg PO BID furosemide 20 mg tablet 20 mg PO DAILY hydroxyzine pamoate 25 mg capsule 25 mg PO QPM cholecalciferol (vitamin D3) 125 mcg (5,000 unit) capsule 5,000 unit PO DAILY multivitamin [Daily Multi-Vitamin] Tablet 1 tab PO DAILY melatonin 10 mg capsule 10 mg PO .qhs amantadine HCl 100 mg tablet 100 mg PO BID aspirin [Adult Low Dose Aspirin] 81 mg tablet,delayed release (DR/EC) 81 mg PO BID 30 Days Qty: 60 0RF biotin 10 mg tablet 10 mg PO DAILY citalopram 40 mg tablet 40 mg PO DAILY tizanidine 4 mg tablet 4 mg PO .qhs testosterone cypionate 200 mg/mL oil 300 mg IM Q14D gabapentin [Neurontin] 600 mg tablet 600 mg PO DAILY Activity: increase activity as tolerated Diet: advance to your usual diet Print Language: Yoruba Patient Instructions: Cellulitis (GEN) Forms: Portal Instructions
[2024-09-22] MEDS: OMEPRAZOLE 40 MG CAPSULE.DR PO (08:00)
[2024-09-22] MEDS: CARVEDILOL 25 MG TABLET PO (08:00)
[2024-09-22] MEDS: CITALOPRAM HYDROBROMIDE 20 MG TABLET 40 MG PO (08:00)
[2024-09-22] MEDS: ASPIRIN 81 MG TABLET.DR PO (08:00)
[2024-09-22] MEDS: MODAFINIL 100 MG TABLET 200 MG PO (08:00)
[2024-09-22] MEDS: GABAPENTIN 300 MG CAPSULE 600 MG PO (08:00)
[2024-09-22] MEDS: POTASSIUM CHLORIDE 10 MEQ ER TABLET PO (08:00)
[2024-09-22] MEDS: FUROSEMIDE 20 MG TABLET PO (08:00)
[2024-09-22] MEDS: MULTIVITAMIN TABLET 1 TAB PO (08:00)
[2024-09-22] MEDS: DOXAZOSIN MESYLATE 2 MG TABLET 8 MG PO (08:00)
[2024-09-22] MEDS: AMANTADINE HCL 100 MG CAPSULE PO (08:00)
[2024-09-22] MEDS: CHOLECALCIFEROL (VITAMIN D3) 125 MCG/5,000 UNIT TABLET PO (08:00)
[2024-09-22] MEDS: COLLAGENASE CLOSTRIDIUM HIST. 250 UNITS/GM 30 GRAM TUBE 1 APPLIC TOPICAL (08:03)
--- NOTE | 2024-09-22 09:09 | PC.NURSE ---
discharge instructions explained to pt. verbalized understanding.
--- NOTE | 2024-09-22 09:28 | CM.NOTE ---
Discussed with pt and regarding recommendations from PT for HH services, both are in agreement for HH services. Pt does not care what HH company he has, offered to bring pt a list with 5 star [employer] rating to choose from. Pt does not want list, he does not have a preference with HH company. Updated SW.
--- NOTE | 2024-09-22 09:28 | PC.NURSE ---
pt and agreed to home health. case management, karly, made aware.
--- NOTE | 2024-09-22 09:29 | PC.NURSE ---
taken to exit via wheelchair. discharged to private vehicle with belongings.
--- NOTE | 2024-09-22 10:35 | SWNOTE1 ---
[facility] is able to accept. SW to call pt and send final orders.
--- NOTE | 2024-09-22 12:49 | SWNOTE1 ---
[facility] accepted.
--- NOTE | 2024-09-22 13:33 | CM.NOTE ---
Faxed Med list and order to [facility] for HH services.
--- NOTE | 2024-09-22 15:09 | CM.NOTE ---
Called and spoke with pt's regarding update that [facility] would be reaching out to them for services on Wednesday.
[2024-09-24 12:42] LABS: BOX Test Reference Lab FIRELANDS; BOX Test Sent Out WOUND CULTURE
--- NOTE | 2024-09-25 14:18 | CM.DCFOLLOWU ---
Person spoke with: Pt's How are you feeling? He fell at home and got shipped to [facility] for fracture How is your pain? He is still in the hospital
== END 2024-09-22 09:30 | disposition home or self-care (01) | DRG 383 ==
LOC: ER 21:10 → ICU 09-20 07:21
PROVIDERS: Internal Medicine; Physician Assistant; Registered Nurse; Admitting Provider Family Medicine; Emergency Provider Emergency Medicine; PCP Family Medicine; Visit Provider Family Medicine
DX: L03.116 Cellulitis of left lower limb (principal); J96.02 Acute respiratory failure with hypercapnia; J96.21 Acute and chronic respiratory failure with hypoxia; M00.9 Pyogenic arthritis, unspecified; E66.2 Morbid (severe) obesity with alveolar hypoventilation; E11.621 Type 2 diabetes mellitus with foot ulcer; L97.522 Non-pressure chronic ulcer of other part of left foot with fat layer exposed; E11.42 Type 2 diabetes mellitus with diabetic polyneuropathy; E78.00 Pure hypercholesterolemia, unspecified; F32.A Depression, unspecified; F41.1 Generalized anxiety disorder; G47.00 Insomnia, unspecified; G47.419 Narcolepsy without cataplexy; G89.4 Chronic pain syndrome; I10 Essential (primary) hypertension; K21.9 Gastro-esophageal reflux disease without esophagitis; M47.816 Spondylosis without myelopathy or radiculopathy, lumbar region; M54.50 Low back pain, unspecified; Z79.82 Long term (current) use of aspirin; Z79.899 Other long term (current) drug therapy; Z68.38 Body mass index [BMI] 38.0-38.9, adult
CPT/HCPCS: 36415; 36600; 70491; 71275; 73610; 73630; 80048; 80053; 80202; 82800; 82805; 82948; 83605; 83880; 84484; 85007; 85025; 85027; 85652; 86140; 87040; 87070; 87075; 87150; 87186; 87205; 93005; 93971; 94660; 94761; 96365; 96375; 97162; 97165; 97530; 97535; 99285; G0378; J0131; J1171; J1650; J2405; J2543; J3370; Q0177; Q9967

== ENCOUNTER 2024-09-23 05:34 | Emergency (ER) | payer MEDICAID, SELFPAY ==
[2024-09-23] VITALS (14 sets, daily range): BP systolic 113–155; BP diastolic 80–102; PULSE 70–88; TEMP 36.6; O2SAT 88–99; BMI 38.5
--- NOTE | 2024-09-23 05:36 | XR_ITS ---
The [address] [address] Patient Name: MATTY WADE MRN: [id number] date: 1970 Sex: M Assigned Patient Location: ER Current Patient Location: ER Accession/Order Number: [id number] Exam Date: 09/23/2024 05:40 Report Date: 09/23/2024 06:35 At the request of: KAYLIN COX Procedure: XR tibia fibula RT 2V PROCEDURE: XR tibia fibula RT 2V, XR knee RT 3V, XR ankle RT min 3V HISTORY: fall COMPARISON: None. FINDINGS: BONES:Oblique fracture through distal tibial diaphysis with 10 mm lateral displacement of the distal fragment. Comminuted fracture of the distal fibula diaphysis with angulated fragments and lateral displacement of the distal fragment one half of the bone width. Chronic separate ossification adjacent the lateral margin of the tibial plafond. Intact knee joint and ankle joint without acute abnormality or significant degenerative changes. SOFT TISSUES:Soft tissue swelling surrounding the distal lower right leg. No radiopaque foreign body. EFFUSION:None visible. OTHER: Negative. XR/XR tibia fibula RT 2V IMPRESSION: 1. Acute, displaced fractures of the distal right tibia and fibula. 2. No acute abnormality of the right knee and right ankle. Electronically authenticated by: SHY MISTRY Date: 09/23/2024 06:35
--- NOTE | 2024-09-23 05:36 | XR_ITS ---
The [place] [id number] Patient Name: MATTY WADE MRN: [id number] date: 1970 Sex: M Assigned Patient Location: ER Current Patient Location: ER Accession/Order Number: [id number] Exam Date: 09/23/2024 05:40 Report Date: 09/23/2024 06:35 At the request of: KAYLIN COX Procedure: XR ankle RT min 3V PROCEDURE: XR tibia fibula RT 2V, XR knee RT 3V, XR ankle RT min 3V HISTORY: fall COMPARISON: None. FINDINGS: BONES:Oblique fracture through distal tibial diaphysis with 10 mm lateral displacement of the distal fragment. Comminuted fracture of the distal fibula diaphysis with angulated fragments and lateral displacement of the distal fragment one half of the bone width. Chronic separate ossification adjacent the lateral margin of the tibial plafond. Intact knee joint and ankle joint without acute abnormality or significant degenerative changes. SOFT TISSUES:Soft tissue swelling surrounding the distal lower right leg. No radiopaque foreign body. EFFUSION:None visible. OTHER: Negative. XR/XR ankle RT min 3V IMPRESSION: 1. Acute, displaced fractures of the distal right tibia and fibula. 2. No acute abnormality of the right knee and right ankle. Electronically authenticated by: SHY MISTRY Date: 09/23/2024 06:35
--- NOTE | 2024-09-23 05:36 | XR_ITS ---
The [place] [id number] Patient Name: MATTY WADE MRN: [id number] date: 1970 Sex: M Assigned Patient Location: ER Current Patient Location: ER Accession/Order Number: [id number] Exam Date: 09/23/2024 05:40 Report Date: 09/23/2024 06:35 At the request of: KAYLIN COX Procedure: XR knee RT 3V PROCEDURE: XR tibia fibula RT 2V, XR knee RT 3V, XR ankle RT min 3V HISTORY: fall COMPARISON: None. FINDINGS: BONES:Oblique fracture through distal tibial diaphysis with 10 mm lateral displacement of the distal fragment. Comminuted fracture of the distal fibula diaphysis with angulated fragments and lateral displacement of the distal fragment one half of the bone width. Chronic separate ossification adjacent the lateral margin of the tibial plafond. Intact knee joint and ankle joint without acute abnormality or significant degenerative changes. SOFT TISSUES:Soft tissue swelling surrounding the distal lower right leg. No radiopaque foreign body. EFFUSION:None visible. OTHER: Negative. XR/XR knee RT 3V IMPRESSION: 1. Acute, displaced fractures of the distal right tibia and fibula. 2. No acute abnormality of the right knee and right ankle. Electronically authenticated by: SHY MISTRY Date: 09/23/2024 06:35
--- NOTE | 2024-09-23 05:46 | XR_ITS ---
The [address] [address] Patient Name: MATTY WADE MRN: [id number] date: 1970 Sex: M Assigned Patient Location: ER Current Patient Location: ER Accession/Order Number: [id number] Exam Date: 09/23/2024 05:40 Report Date: 09/23/2024 06:35 At the request of: KAYLIN COX Procedure: XR chest 1V EXAMINATION: XR chest 1V HISTORY: preop COMPARISON: No relevant comparison available. FINDINGS: LUNGS: No significant pulmonary parenchymal abnormalities. VASCULATURE: No increased pulmonary vasculature. PLEURA: No pneumothorax, effusion, or pleural thickening. CARDIAC: No cardiomegaly or cardiac silhouette abnormality. MEDIASTINUM: No visible mass or adenopathy. BONES: No fracture or visible bone lesion. OTHER: Negative. XR/XR chest 1V IMPRESSION: 1. Slightly limited by patient positioning. 2. No acute cardiopulmonary process. Electronically authenticated by: SHY MISTRY Date: 09/23/2024 06:35
--- NOTE | 2024-09-23 05:46 | ECG_ITS ---
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
--- OUTSIDE RECORDS SUMMARY | 2024-09-23 05:49 | XMS_ITS | CCD ---
Author Organization [facility] CliniSynm Care Team Providers Care Photographic Editor Name Role Phone UNKNOWN, PROVIDER Admitting Unavailable UNKNOWN, PROVIDER Attending Unavailable VENUS MENDEZ Referring Unavailable VENUS MENDEZ Primary Care Unavailable [place] Procedure Practitioner Unavailab le UNKNOWN, PROVIDER Surgeon Unavailable [place] Procedure Practitioner Unavailab le SANDRA BILL Surgeon Unavailable UNKNOWN, PROVIDER Admitting Unavailable UNKNOWN, PROVIDER Attending Unavailable VENUS MENDEZ Referring Unavailable VENUS MENDEZ Primary Care Unavailable [place] Procedure Practitioner Unavailab le UNKNOWN, PROVIDER Surgeon Unavailable Venus Mendez Primary Care Physician [phone] DONOVAN Admitting Unavailable HOY [...] Aspartame Drug Allergy 08-17-20 18 [facility] Repository (1 source) avoid; Translations: [Unknown] Propensity to adverse reactions (disorder) 08-17-20 18 [facility] (1 source) vitamin B12; Translations: [cyanocobalamin] Drug Allergy Unknown (qualifier value) [facility] (1 source) Acetaminophen / HYDROcodone Drug Allergy [facility] (1 source) Corticosteroids Drug allergy (disorder) [facility] (1 source) fentaNYL Drug Allergy [facility] Repository (1 source) Misc-Food; Translations: [Misc-Food] Food allergy (disorder) [facility] (1 source) Corticosteroids Drug allergy (disorder) 05-14-20 18 [facility] Repository (5 sources) fentaNYL Drug Allergy 07-08-20 [...] sources) Opioid Agonist Start: 03-20-2024 HYDROcodone-acet aminophen ([place]) 5-325 MG tablet 03/20/2024 Active amantadine hydrochloride [...] with food. . 02/22/2023 Active sennosides, senior living 8.6 mg oral tablet (5 sources) Start: [...] by mouth at bedtime. Active Vit D3-Folic Jcab-T4-D1-B12 (1 source) Start: 05-14-2018 take 1 tablet by mouth once daily Vit D3-Folic Xwap-W1-S2-B12 Active 1 TAB PO Daily May 14, [...] 8 06-21-2023 Chronic Other aftercare (1 source) penitentiary (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; Translations: [[facility] 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 ASPIRIN] Onset: 3 Episodic Other aftercare (1 source) Other director long term care (current) drug therapy; Translations: [OTH [facility] CURRENT [...] Test Name Value Interpretation Reference Range Facility [facility] 01-03-2024 L Specimen: [id number] Received: 01/03/24 Status: SOUT Req Num: [id number] Spec Type: Surgical Subm Dr: Trey Vallejo DPM, [place] Tissues: A Bone Fragments - Pathologic Fracture (PROXIMAL PHALANX RIGHT HALLU) Procedures: HE/2, Gross/Micro L5, Decalcification Age/ Patient Sex Location Account Attending Physician Matty Garces 53/M LABELL [id number] Trey Vallejo DPM, MS SPEC NUM: [id number] RECD: 01/03/24 STATUS: GIOVANNI [facility] NUM: [id number] SOFY: 01/03/24 [facility] DR: Trey Vallejo DPM, MS ENTERED: 01/03/24 [...] Sectioning reveals unremarkable yellow, spongy bone matrix. Non Cdl Driver sections are submitted in A1 following decal. Clinical history: Non-pressure chronic ulcer . Right hallux IPJ arthroplasty with wound debridement and graft application TW Specimen: [id number] Received: 01/03/24 Status: GIOVANNI Ophelia Num: [id number] Spec Type: Surgical Subm Dr: Trey Vallejo DPM, MS Tissues: A Bone Fragments - Pathologic Fracture (PROXIMAL PHALANX RIGHT HALLU) Procedures: HE/2, Gross/Micro L5, Decalcification Patient: Matty Garces [id number] (Continued) Specimen: [id number] Received: 01/03/24 (Continued) Signed (signature on file) Viral Rae MD 01/06/24 1838 Specimen: [id number] Received: 01/03/24 Status: GIOVANNI Jacinto Num: [id number] Spec Type: Surgical Subm Dr: Trey Vallejo,DPJose Eduardo, [place] Tissues: A Bone Fragments - Pathologic Fracture (PROXIMAL PHALANX RIGHT HALLU) Procedures: HE/2, Gross/Micro L5, Decalcification Patient: Matty Garces [id number] (Continued) Specimen: [id number] Received: 01/03/24 (Continued) CPT Codes 32228 Specimen: [id number] Received: 01/03/24 Status: GIOVANNI Jacinto Num: [id number] Spec Type: Surgical Subm Dr: Trey Vallejo,[place], [place] Tissues: A Bone Fragments - Pathologic Fracture (PROXIMAL PHALANX RIGHT HALLU) Procedures: HE/2, Gross/Micro L5, Decalcification Patient: Matty Garces [id number] (Continued) Signed (signature on file) Kuldip-Christopher Rae MD 01/06/24 1838 Normal [facility] CT CSPINE WO CONon [...] corpectomy at C5-C6. Electronically authenticated by: [facility] SAID Date: 2022-12-06 06:37 Normal [facility] CT FACIAL BONES WO CONon CT [...] sinus mucoperiosteal thickening Electronically authenticated by: [facility] SA[facility] Date: 2022-12-06 06:41 Normal [facility] CT HEAD WO CONon 12-06-2022 CT [...] ANGEL JORDAN Date: 2022-12-06 06:39 Normal [facility] XR ELBOW RT MIN 3 VIEWSon XR ELBOW RT MIN 3 VIEWS Exam: Radiographs: XR ELBOW RT MIN 3 VIEWS Reason for exam: Elbow pain Comparison: None IMPRESSION: Right elbow degenerative changes. Olecranon spur. Remainder of the right elbow is unremarkable. Electronically authenticated by: MICHAEL CASANOVA Date: 2022-12-06 07:22 Normal [facility] XR FOREARM RT 2Von XR FOREARM RT 2V Exam: Radiographs: XR FOREARM RT 2V Reason for exam: Forearm pain Comparison: None IMPRESSION: Mild degenerative changes in the right elbow and wrist. Right forearm is otherwise unremarkable. Electronically authenticated by: MICHAEL CASANOVA Date: 2022-12-06 08:07 Normal [facility] PSA, FREE AND TOTAL RATIOon 12-03-2022 % Free PSA 9.0 % Normal [facility] Comment on above: Result Comment: The [...] men. Performed By: #### P SAFREE #### [facility] [address] [place] [address] Dr. Shabnam Rae Prostate specific Ag [Mass/Vol] 5.9 ng/mL Critically high 0.0-4.0 [facility] Comment on above: Result Comment: Tanja BRANTLEY methodology. . According to the [place] [employer], Serum PSA should decrease and [...] disease. Performed By: #### P SAFREE #### [facility] [address] [address] [address] Shabnam Rae PSA, Free 0.53 ng/mL Normal N/A [facility] Comment on above: Result Comment: Tanja ayala ECLIA methodology. Performed By: #### P SAFREE #### [facility] [address] [address] [address] Shabnam Rae INSULINon 12-02-2022 Insulin 20.2 uIU/mL Normal 2.6-24.9 [facility] Comment on above: Performed By: #### P SASC #### [facility] [address] [address] [address] Shabnam Rae TESTOSTERONE, TOTALon 2022 Testosterone [Mass/Vol] 256 ng/dL Critically low 264-916 [facility] Comment on above: Result Comment: Adul t male reference interval is based on a population of healthy nonobese males (BMI <30) between 19 and 39 years old. adia Ch.al. JCEM 2017,102;9356-6928. PMID: [id number]. Performed By: #### P SASC #### [facility] [address] [address] [address] Shabnam Rae CBC AUTO DIFFon 12-01-2022 BASO # 0.1 103/ul Normal 0.0-0.1 [facility] Comment on above: Performed By: #### P SASC #### [facility] [address] [address] [address] Shabnam Rae Basophils/100 WBC (Bld) 1.0 % Normal 0.2-2.0 [facility] Comment on above: Performed By: #### P SASC #### [facility] [address] [place] [address] Dr. Shabnam Rae EO # 0.1 103/ul Normal 0.0-0.7 [facility] Comment on above: Performed By: #### P SASC #### [facility] [address] [place] [address] Dr. Shabnam Rae Eosinophils/100 WBC (Bld) 1.8 % Normal 0.9-7.0 [facility] Comment on above: Performed By: #### P SASC #### [facility] [address] [place] [address] Dr. Shabnam Rae Erythrocyte distribution width (RBC) [Ratio] 14.8 % Normal 11.0-15.0 [facility] Comment on above: Performed By: #### P SASC #### [facility] [address] [place] [address] Dr. Shabnam Rae Hematocrit (Bld) [Volume fraction] 49.9 % Normal 42.0-54.0 [facility] Comment on above: Performed By: #### P SASC #### [facility] [address] [place] [address] Dr. Shabnam Rae Hemoglobin (Bld) [Mass/Vol] 16.0 g/dL Normal 14.0-18.0 [facility] Comment on above: Performed By: #### P SASC #### [facility] [address] [place] [address] Dr. Shabnam Rae IG # 0.04 10e3/ul Critically high 0.00-0.03 [facility] Comment on above: Performed By: #### P SASC #### [facility] [address] [place] [address] Dr. Shabnam Rae IG % 0.6 % Critically high 0.0-0.5 [facility] Comment on above: Performed By: #### P SASC #### [facility] [address] [place] [address] Dr. Shabnam Rae LYMPH # 1.0 103/ul Critically low 1.2-3.8 [facility] Comment on above: Performed By: #### P SASC #### [facility] [address] [place] [address] Dr. Shabnam Rae Lymphocytes/100 WBC (Bld) 16.2 % Critically low 20.5-60.0 [facility] Comment on above: Performed By: #### P SASC #### [facility] [address] [place] [address] Dr. Shabnam Rae MANUAL DIFF REQ NO Normal [facility] Comment on above: Performed By: #### P SASC #### [facility] [address] [place] [address] Dr. Shabnam Rae MCH (RBC) [Entitic mass] 27.7 pg Normal 25.9-34.0 [facility] Comment on above: Performed By: #### P SASC #### [facility] [address] [place] [address] Dr. Shabnam Rae MCHC (RBC) [Mass/Vol] 32.1 g/dL Normal 29.9-35.2 [facility] Comment on above: Performed By: #### P SASC #### [facility] [address] [place] [address] Dr. Shabnam Rae MCV (RBC) [Entitic vol] 86.3 fL Normal 80.0-94.0 [facility] Comment on above: Performed By: #### P SASC #### [facility] [address] [place] [address] Dr. Shabnam Rae MONO # 0.5 103/ul Normal 0.3-0.8 [facility] Comment on above: Performed By: #### P SASC #### [facility] [address] [place] [address] Dr. Shabnam Rae Monocytes/100 WBC (Bld) 7.6 % Normal 1.7-12.0 [facility] Comment on above: Performed By: #### P SASC #### [facility] [address] [place] [address] Dr. Shabnam Rae NEUT # 4.6 103/ul Normal 1.4-6.5 [facility] Comment on above: Performed By: #### P SASC #### [facility] [address] [address] [address] Shabnam Rae Neutrophils/100 WBC (Bld) 72.8 % Normal 43.0-75.0 [facility] Comment on above: Performed By: #### P SASC #### [facility] [address] [address] [address] Shabnam Rae Platelet mean volume (Bld) [Entitic vol] 9.8 fL Normal 9.5-13.5 [facility] Comment on above: Performed By: #### P SASC #### [facility] [address] [place] [address] Dr. Shabnam Rae PLT 203 103/ul Normal 150-450 [facility] Comment on above: Performed By: #### P SASC #### [facility] [address] [place] [address] Dr. Shabnam Rae RBC 5.78 106/ul Normal 4.70-6.10 [facility] Comment on above: Performed By: #### P SASC #### [facility] [address] [place] [address] Dr. Shabnam Rae WBC 6.3 103/ul Normal 4.0-11.0 [facility] Comment on above: Performed By: #### P SASC #### [facility] [address] [place] [address] Dr. Shabnam Rae FREE THYROXINE INDEX T7on FTI 2.05 Normal 1.30-4.50 [facility] Comment on above: Performed By: #### T SH, CMP, LIPID, T7, URIC #### [facility] [address] [place] [address] Dr. Shabnam Rae T3U 33.0 % Normal 33.0-40.0 [facility] Comment on above: Performed By: #### T SH, CMP, LIPID, T7, URIC #### [facility] [address] [place] [address] Dr. Shabnam Rae T4 [Mass/Vol] 6.20 ug/dL Normal 4.50-12.10 [facility] Comment on above: Performed By: #### T SH, CMP, LIPID, T7, URIC #### [facility] [address] [address] [address] Shabnam Rae GLYCOHEMOGLOBIN A1Con 2022 ADA RECOMMENDATION SEE BELOW Normal [facility] Comment on above: Result Comment: ADA RECOMMENDED LIMIT 4.0 - 6.0 ADA THERAPEUTIC TARGET < 7.0 ACTION SUGGESTED > 7.0 Performed By: #### P SASC #### [facility] [address] [address] [address] Shabnam Rae Glucose [Mass/Vol] 114 mg/dL Normal [facility] Comment on above: Performed By: #### P SASC #### [facility] [address] [address] [address] Shabnam Rae HbA1c (Bld) [Mass fraction] 5.6 % Normal 4.5-6.2 [facility] Comment on above: Performed By: #### P SASC #### [facility] [address] [address] [address] Shabnam Rae LIPID PROFILEon 12-01-2022 CHOL-HDL RATIO NORM SEE BELOW Normal [facility] Comment on above: Result Comment: 3.3 - 4.4 LOW RISK 4.4 - 7.1 AVERAGE RISK 7.1 - 11.0 MODERATE RISK >11.0 HIGH RISK Performed By: #### T SH, CMP, LIPID, T7, URIC #### [facility] [address] [address] [address] Shabnam Rae Cholesterol [Mass/Vol] 176 mg/dL Normal <=200 [facility] Comment on above: Performed By: #### T SH, CMP, LIPID, T7, URIC #### [facility] [address] [address] [address] Shabnam Rae Cholesterol in HDL [Mass/Vol] 48 mg/dL Normal 40-60 [facility] Comment on above: Performed By: #### T SH, CMP, LIPID, T7, URIC #### [facility] [address] [address] [address] Shabnam Rae Cholesterol in LDL [Mass/Vol] 108.2 mg/dL Normal [facility] Comment on above: Performed By: #### T SH, CMP, LIPID, T7, URIC #### [facility] [address] [address] [address] Shabnam Rae Cholesterol.total/Ch olesterol in HDL [Mass ratio] 3.7 {ratio} Normal [facility] Comment on above: Performed By: #### T SH, CMP, LIPID, T7, URIC #### [facility] [address] [address] [address] Shabnam Rae HDL NORMAL > or = 60 mg/dl - LOW CARDIOVASCULAR RISK <40 mg/dl - HIGH CARDIOVASCULAR RISK Normal [facility] Comment on above: Performed By: #### T SH, CMP, LIPID, T7, URIC #### [facility] [address] [address] [address] Shabnam Rae LDL CALC NORMAL SEE BELOW Normal [facility] Comment on above: Result Comment: <100 mg/dl OPTIMAL 100 - 129 mg/dl NEAR OR ABOVE OPTIMAL 130 - 159 mg/dl BORDERLINE HIGH 160 - 189 mg/dl HIGH >190 mg/dl VERY HIGH Performed By: #### T SH, CMP, LIPID, T7, URIC #### [facility] [address] [address] [address] Shabnam Rae Triglyceride [Mass/Vol] 99 mg/dL Normal <=150 [facility] Comment on above: Performed By: #### T SH, CMP, LIPID, T7, URIC #### [facility] [address] [address] [address] Shabnam Rae VLDL CALC 19.8 mg/dL Normal [facility] Comment on above: Performed By: #### T SH, CMP, LIPID, T7, URIC #### [facility] [address] [address] [address] Shabnam Rae PROF 14(COMP METB)on 023 Albumin [Mass/Vol] 4.1 g/dL Normal 3.4-5.0 [facility] Comment on above: Performed By: #### T SH, CMP, LIPID, T7, URIC #### [facility] [address] [address] [address] Shabnam Rae Albumin/Globulin [Mass ratio] 1.1 {ratio} Normal [facility] Comment on above: Performed By: #### T SH, CMP, LIPID, T7, URIC #### [facility] [address] [address] [address] Shabnam Rae ALP [Catalytic activity/Vol] 101 U/L Normal 46-116 [facility] Comment on above: Performed By: #### T SH, CMP, LIPID, T7, URIC #### [facility] [address] [place] [address] Dr. Shabnam Rae ALT [Catalytic activity/Vol] 26 U/L Normal 16-63 [facility] Comment on above: Performed By: #### T SH, CMP, LIPID, T7, URIC #### [facility] [address] [place] [address] Dr. Shabnam Rae Anion gap [Moles/Vol] 10.1 mmol/L Normal [facility] Comment on above: Performed By: #### T SH, CMP, LIPID, T7, URIC #### [facility] [address] [place] [address] Dr. Shabnam Rae AST [Catalytic activity/Vol] 19 U/L Normal 15-37 [facility] Comment on above: Performed By: #### T SH, CMP, LIPID, T7, URIC #### [facility] [address] [address] [address] Shabnam Rae Bilirubin [Mass/Vol] 0.8 mg/dL Normal 0.2-1.0 [facility] Comment on above: Performed By: #### T SH, CMP, LIPID, T7, URIC #### [facility] [address] [place] [address] Dr. Shabnam Rae Calcium [Mass/Vol] 9.5 mg/dL Normal 8.5-10.1 [facility] Comment on above: Performed By: #### T SH, CMP, LIPID, T7, URIC #### [facility] [address] [address] [address] Shabnam Rae Chloride [Moles/Vol] 102 mmol/L Normal 98-107 [facility] Comment on above: Performed By: #### T SH, CMP, LIPID, T7, URIC #### [facility] [address] [address] [address] Shabnam Rae CO2 [Moles/Vol] 32.4 mmol/L Critically high 21.0-32.0 [facility] Comment on above: Performed By: #### T SH, CMP, LIPID, T7, URIC #### [facility] [address] [address] [address] Shabnam Rae Creatinine [Mass/Vol] 1.00 mg/dL Normal 0.70-1.30 [facility] Comment on above: Performed By: #### T SH, CMP, LIPID, T7, URIC #### [facility] [address] [address] [address] Shabnam Rae EGFR-AF BURMESE >60 Normal >=60 [facility] Comment on above: Performed By: #### T SH, CMP, LIPID, T7, URIC #### [facility] [address] [address] [address] Shabnam Rae EGFR-NON AF BURMESE >60 Normal >=60 [facility] Comment on above: Performed By: #### T SH, CMP, LIPID, T7, URIC #### [facility] [address] [address] [address] Shabnam Rae Globulin (S) [Mass/Vol] 3.8 g/dL Normal [facility] Comment on above: Performed By: #### T SH, CMP, LIPID, T7, URIC #### [facility] [address] [address] [address] Shabnam Rae Glucose [Mass/Vol] 94 mg/dL Normal 74-106 [facility] Comment on above: Performed By: #### T SH, CMP, LIPID, T7, URIC #### [facility] [address] [address] [address] Shabnam Rae Potassium [Moles/Vol] 3.5 mmol/L Normal 3.5-5.1 [facility] Comment on above: Performed By: #### T SH, CMP, LIPID, T7, URIC #### [facility] [address] [place] [address] Dr. Shabnam Rae Protein [Mass/Vol] 7.9 g/dL Normal 6.4-8.2 [facility] Comment on above: Performed By: #### T SH, CMP, LIPID, T7, URIC #### [facility] [address] [place] [address] Dr. Shabnam Rae Sodium [Moles/Vol] 141 mmol/L Normal 136-145 [facility] Comment on above: Performed By: #### T SH, CMP, LIPID, T7, URIC #### [facility] [address] [place] [address] Dr. Shabnam Rae Urea nitrogen [Mass/Vol] 15.0 mg/dL Normal 7.0-18.0 [facility] Comment on above: Performed By: #### T SH, CMP, LIPID, T7, URIC #### [facility] [address] [place] [address] Dr. Shabnam Rae Urea nitrogen/Creatinine [Mass ratio] 15.0 mg/mg Normal [facility] Comment on above: Performed By: #### T SH, CMP, LIPID, T7, URIC #### [facility] [address] [place] [address] Dr. Shabnam Rae TSHon 12-01-2022 TSH 1.504 uIU/mL Normal 0.358-3.740 [facility] Comment on above: Performed By: #### T SH, CMP, LIPID, T7, URIC #### [facility] [address] [place] [address] Dr. Shabnam Rae URIC ACID SERUMon 12-01-2022 Urate [Mass/Vol] 6.9 mg/dL Normal 3.5-7.2 [facility] Comment on above: Performed By: #### T SH, CMP, LIPID, T7, URIC #### [facility] [address] [place] [address] Dr. Shabnam Rae TESTOSTERONE, TOTALon 2021 Testosterone [Mass/Vol] 244 ng/dL Critically low 264-916 [facility] Comment on above: Result Comment: Adul t male reference interval is based on a population of healthy nonobese males (BMI <30) between 19 and 39 years old. Dima, et.al. EM 2017,102;0995-1466. PMID: [id number]. Performed By: #### P SAFREE #### [facility] [address] [place] [address] Dr. Shabnam Rae TESTOSTERONE, FREE,DIRECT, T OTALon 03-16-2022 Free Testosterone(Direct) 2.1 pg/mL Critically low 7.2-24.0 [facility] Comment on above: Result Comment: Perf ormed at: BN Performed By: #### C VDTBH #### [facility] [address] [place] [address] Dr. Shabnam Rae Testosterone [Mass/Vol] 252 ng/dL Critically low 264-916 [facility] Comment on above: Result Comment: Adul t male reference interval is based on a population of healthy nonobese males (BMI <30) between 19 and 39 years old. Travison, et.al. JCEM 2017,102;0820-3943. PMID: [id number]. Performed at: CB Performed By: #### C VDTBH #### [facility] [address] [place] [address] Dr. Shabnam Rae Formson 02-26-2022 Forms [id number] 7#1.00CD:127 Normal [facility] Screenson 02-26-2022 Screens [id number] 7#1.00CD:127 Normal [facility] Screens [id number] #1.00CD:127 Normal [facility] Urology Office/Clinic Noteon 02-26-2022 Urology [...] (more content not included)... Normal [facility] Comment [...] Urnls Dip Stick Auto w/o Microscopy POC 72396 Your Care Team Attending Physician - Viola [...] Urnls Dip Stick Auto w/o Microscopy POC 00820 (02/25/2022) Bilirubin Urine Dipstick - Negative Blood Urine Dipstick - Negative Glucose Urine Dipstick - Negative Ketones Urine Dipstick - Negative Leukocytes Urine Dipstick - Negative Nitrite Urine Dipstick - Negative Protein Urine Dipstick - Negative Specific [place] Urine Dipstick - >=1.030 Urine Appearance Urine [...] the hydrocele for any changes. ? Take tsvy-bwm-vefdwds and prescription medicines only as told by [...] intended t (more content not included)... Normal [facility] Patient Educationon 02-26-20 Patient Education [...] the hydrocele for any changes. ? Take nzjx-plq-osdtcjt and prescription medicines only as told by [...] 02/17/2011 Document Revised: 09/10/2018 Document Reviewed: 09/10/2018 Certify Patient Education ? 2019 [place]. Normal [facility] ED Note-Physicianon 02-04-20 ED Note-Physician [id number] 62#1.00CD:127 Normal [facility] RAD - Ultrasound Reporton RAD - Ultrasound Report [id number] #1.00CD:127 Normal [facility] RAD - CT Reporton 02-02-2022 RAD - CT Report [id number]#1.00CD:127 [facility] RAD - CT Report [id number]#1.00CD:127 Normal [facility] CBC AUTO DIFFon 01-05-2022 BASO # 0.0 103/ul Normal 0.0-0.1 [facility] Comment on above: Performed By: #### P SAFREE #### [facility] [address] [place], [place] [address] Dr. Shabnam Rae Basophils/100 WBC (Bld) 0.6 % Normal 0.2-2.0 [facility] Comment on above: Performed By: #### P SAFREE #### [facility] [address] [place] [address] [address] Shabnam Rae EO # 0.1 103/ul Normal 0.0-0.7 [facility] Comment on above: Performed By: #### P SAFREE #### [facility] [address] [address] [address] Shabnam Rae Eosinophils/100 WBC (Bld) 2.1 % Normal 0.9-7.0 [facility] Comment on above: Performed By: #### P SAFREE #### [facility] [address] [place] [address] Dr. Shabnam Rae Erythrocyte distribution width (RBC) [Ratio] 13.1 % Normal 11.0-15.0 [facility] Comment on above: Performed By: #### P SAFREE #### [facility] [address] [place] [address] Dr. Shabnam Rae Hematocrit (Bld) [Volume fraction] 43.1 % Normal 42.0-54.0 [facility] Comment on above: Performed By: #### P SAFREE #### [facility] [address] [place] [address] Dr. Shabnam Rae Hemoglobin (Bld) [Mass/Vol] 13.7 g/dL Critically low 14.0-18.0 [facility] Comment on above: Performed By: #### P SAFREE #### [facility] [address] [place] [address] Dr. Shabnam Rae IG # 0.04 10e3/ul Critically high 0.00-0.03 [facility] Comment on above: Performed By: #### P SAFREE #### [facility] [address] [place] [address] Dr. Shabnam Rae IG % 0.6 % Critically high 0.0-0.5 [facility] Comment on above: Performed By: #### P SAFREE #### [facility] [address] [place] [address] Dr. Shabnam Rae LYMPH # 0.9 103/ul Critically low 1.2-3.8 [facility] Comment on above: Performed By: #### P SAFREE #### [facility] [address] [address] [address] Shabnam Rae Lymphocytes/100 WBC (Bld) 13.1 % Critically low 20.5-60.0 [facility] Comment on above: Performed By: #### P SAFREE #### [facility] [address] [address] [address] Shabnam Rae MANUAL DIFF REQ NO Normal [facility] Comment on above: Performed By: #### P SAFREE #### [facility] [address] [address] [address] Shabnam Rae MCH (RBC) [Entitic mass] 29.5 pg Normal 25.9-34.0 [facility] Comment on above: Performed By: #### P SAFREE #### [facility] [address] [place] [address] Dr. Shabnam Rae MCHC (RBC) [Mass/Vol] 31.8 g/dL Normal 29.9-35.2 [facility] Comment on above: Performed By: #### P SAFREE #### [facility] [address] [place] [address] Dr. Shabnam Rae MCV (RBC) [Entitic vol] 92.9 fL Normal 80.0-94.0 [facility] Comment on above: Performed By: #### P SAFREE #### [facility] [address] [place] [address] Dr. Shabnam Rae MONO # 0.4 103/ul Normal 0.3-0.8 [facility] Comment on above: Performed By: #### P SAFREE #### [facility] [address] [place] [address] Dr. Shabnam Rae Monocytes/100 WBC (Bld) 5.4 % Normal 1.7-12.0 [facility] Comment on above: Performed By: #### P SAFREE #### [facility] [address] [place] [address] Dr. Shabnam Rae NEUT # 5.2 103/ul Normal 1.4-6.5 [facility] Comment on above: Performed By: #### P SAFREE #### [facility] [address] [address] [address] Shabnam Rae Neutrophils/100 WBC (Bld) 78.2 % Critically high 43.0-75.0 [facility] Comment on above: Performed By: #### P SAFREE #### [facility] [address] [address] [address] Shabnam Rae Platelet mean volume (Bld) [Entitic vol] 10.9 fL Normal 9.5-13.5 [facility] Comment on above: Performed By: #### P SAFREE #### [facility] [address] [address] [address] Shabnam Rae PLT 153 103/ul Normal 150-450 [facility] Comment on above: Performed By: #### P SAFREE #### [facility] [address] [address] [address] Shabnam Rae RBC 4.64 106/ul Critically low 4.70-6.10 [facility] Comment on above: Performed By: #### P SAFREE #### [facility] [address] [address] [address] Shabnam Rae WBC 6.6 103/ul Normal 4.0-11.0 [facility] Comment on above: Performed By: #### P SAFREE #### [facility] [address] [place] [address] Dr. Shabnam Rae CRPon 01-05-2022 CRP 0.9 mg/dL Normal <=1.0 [facility] Comment on above: Performed By: #### P SAFREE #### [facility] [address] [address] [address] Shabnam Rae PROF 14(COMP METB)on 022 Albumin [Mass/Vol] 3.6 g/dL Normal 3.4-5.0 [facility] Comment on above: Performed By: #### P SAFREE #### [facility] [address] [place] [address] Dr. Shabnam Rae Albumin/Globulin [Mass ratio] 1.0 {ratio} Normal [facility] Comment on above: Performed By: #### P SAFREE #### [facility] [address] [address] [address] Shabnam Rae ALP [Catalytic activity/Vol] 114 U/L Normal 46-116 [facility] Comment on above: Performed By: #### P SAFREE #### [facility] [address] [place] [address] [address] Shabnam Rae ALT [Catalytic activity/Vol] 26 U/L Normal 16-63 [facility] Comment on above: Performed By: #### P SAFREE #### [facility] [address] [address] [address] Shabnam Rae Anion gap [Moles/Vol] 9.3 mmol/L Normal [facility] Comment on above: Performed By: #### P SAFREE #### [facility] [address] [place] [address] Dr. Shabnam Rae AST [Catalytic activity/Vol] 19 U/L Normal 15-37 [facility] Comment on above: Performed By: #### P SAFREE #### [facility] [address] [place] [address] [address] Shabnam Rae Bilirubin [Mass/Vol] 0.5 mg/dL Normal 0.2-1.0 [facility] Comment on above: Performed By: #### P SAFREE #### [facility] [address] [place] [address] Dr. Shabnam Rae Calcium [Mass/Vol] 8.9 mg/dL Normal 8.5-10.1 [facility] Comment on above: Performed By: #### P SAFREE #### [facility] [address] [place] [address] [address] Shabnam Rae Chloride [Moles/Vol] 106 mmol/L Normal 98-107 [facility] Comment on above: Performed By: #### P SAFREE #### [facility] [address] [place] [address] [address] Shabnam Rae CO2 [Moles/Vol] 30.7 mmol/L Normal 21.0-32.0 [facility] Comment on above: Performed By: #### P SAFREE #### [facility] [address] [place] [address] Dr. Shabnam Rae Creatinine [Mass/Vol] 1.15 mg/dL Normal 0.70-1.30 [facility] Comment on above: Performed By: #### P SAFREE #### [facility] [address] [place] [address] Dr. Shabnam Rae EGFR-AF BURMESE >60 Normal >=60 [facility] Comment on above: Performed By: #### P SAFREE #### [facility] [address] [place] [address] Dr. Shabnam Rae EGFR-NON AF BURMESE >60 Normal >=60 [facility] Comment on above: Performed By: #### P SAFREE #### [facility] [address] [place] [address] Dr. Shabnam Rae Globulin (S) [Mass/Vol] 3.6 g/dL Normal [facility] Comment on above: Performed By: #### P SAFREE #### [facility] [address] [place] [address] Dr. Shabnam Rae Glucose [Mass/Vol] 117 mg/dL Critically high 74-106 [facility] Comment on above: Performed By: #### P SAFREE #### [facility] [address] [place] [address] Dr. Shabnam Rae Potassium [Moles/Vol] 4.0 mmol/L Normal 3.5-5.1 [facility] Comment on above: Performed By: #### P SAFREE #### [facility] [address] [place] [address] Dr. Shabnam Rae Protein [Mass/Vol] 7.2 g/dL Normal 6.1-8.2 [facility] Comment on above: Performed By: #### P SAFREE #### [facility] [address] [place] [address] Dr. Shabnam Rae Sodium [Moles/Vol] 142 mmol/L Normal 136-145 [facility] Comment on above: Performed By: #### P SAFREE #### [facility] [address] [place] [address] Dr. Shabnam Rae Urea nitrogen [Mass/Vol] 15.0 mg/dL Normal 7.0-18.0 [facility] Comment on above: Performed By: #### P SAFREE #### [facility] [address] [place] [address] Dr. Shabnam Rae Urea nitrogen/Creatinine [Mass ratio] 13.0 mg/mg Normal [facility] Comment on above: Performed By: #### P SAFREE #### [facility] [address] [place] [address] [address] Shabnam Rae US SCROTUMon 01-05-2022 US [...] ALVINA CAICEDO Date: 2022-01-05 08:48 Normal [facility] CBC AUTO DIFFon 01-04-2022 BASO # 0.1 103/ul Normal 0.0-0.1 [facility] Comment on above: Performed By: #### C BC #### [facility] [address] [place] [address] Dr. Shabnam Rae Basophils/100 WBC (Bld) 0.8 % Normal 0.2-2.0 [facility] Comment on above: Performed By: #### C BC #### [facility] [address] [place] [address] Dr. Shabnam Rae EO # 0.1 103/ul Normal 0.0-0.7 [facility] Comment on above: Performed By: #### C BC #### [facility] [address] [place] [address] Dr. Shabnam Rae Eosinophils/100 WBC (Bld) 1.5 % Normal 0.9-7.0 [facility] Comment on above: Performed By: #### C BC #### [facility] [address] [place] [address] Dr. Shabnam Rae Erythrocyte distribution width (RBC) [Ratio] 12.8 % Normal 11.0-15.0 [facility] Comment on above: Performed By: #### C BC #### [facility] [address] [place] [address] Dr. Shabnam Rae Hematocrit (Bld) [Volume fraction] 40.3 % Critically low 42.0-54.0 [facility] Comment on above: Performed By: #### C BC #### [facility] [address] [place] [address] Dr. Shabnam Rae Hemoglobin (Bld) [Mass/Vol] 13.4 g/dL Critically low 14.0-18.0 [facility] Comment on above: Performed By: #### C BC #### [facility] [address] [place] [address] Dr. Shabnam Rae IG # 0.03 10e3/ul Normal 0.00-0.03 [facility] Comment on above: Performed By: #### C BC #### [facility] [address] [place] [address] Dr. Shabnam Rae IG % 0.5 % Normal 0.0-0.5 [facility] Comment on above: Performed By: #### C BC #### [facility] [address] [place] [address] Dr. Shabnam Rae LYMPH # 1.0 103/ul Critically low 1.2-3.8 [facility] Comment on above: Performed By: #### C BC #### [facility] [address] [place] [address] Dr. Shabnam Rae Lymphocytes/100 WBC (Bld) 16.4 % Critically low 20.5-60.0 [facility] Comment on above: Performed By: #### C BC #### [facility] [address] [place] [address] Dr. Shabnam Rae MANUAL DIFF REQ NO Normal [facility] Comment on above: Performed By: #### C BC #### [facility] [address] [place] [address] Dr. Shabnam Rae MCH (RBC) [Entitic mass] 29.5 pg Normal 25.9-34.0 [facility] Comment on above: Performed By: #### C BC #### [facility] [address] [place] [address] Dr. Shabnam Rae MCHC (RBC) [Mass/Vol] 33.3 g/dL Normal 29.9-35.2 [facility] Comment on above: Performed By: #### C BC #### [facility] [address] [place] [address] Dr. Shabnam Rae MCV (RBC) [Entitic vol] 88.8 fL Normal 80.0-94.0 [facility] Comment on above: Performed By: #### C BC #### [facility] [address] [place] [address] Dr. Shabnam Rae MONO # 0.6 103/ul Normal 0.3-0.8 [facility] Comment on above: Performed By: #### C BC #### [facility] [address] [place] [address] Dr. Shabnam Rae Monocytes/100 WBC (Bld) 9.6 % Normal 1.7-12.0 [facility] Comment on above: Performed By: #### C BC #### [facility] [address] [place] [address] Dr. Shabnam Rae NEUT # 4.4 103/ul Normal 1.4-6.5 [facility] Comment on above: Performed By: #### C BC #### [facility] [address] [place] [address] Dr. Shabnam Rae Neutrophils/100 WBC (Bld) 71.2 % Normal 43.0-75.0 [facility] Comment on above: Performed By: #### C BC #### [facility] [address] [place] [address] Dr. Shabnam Rae Platelet mean volume (Bld) [Entitic vol] 10.8 fL Normal 9.5-13.5 [facility] Comment on above: Performed By: #### C BC #### [facility] [address] [place] [address] Dr. Shabnam Rae PLT 158 103/ul Normal 150-450 [facility] Comment on above: Performed By: #### C BC #### [facility] [address] [place] [address] Dr. Shabnam Rae RBC 4.54 106/ul Critically low 4.70-6.10 [facility] Comment on above: Performed By: #### C BC #### [facility] [address] [place] [address] Dr. Shabnam Rae WBC 6.2 103/ul Normal 4.0-11.0 [facility] Comment on above: Performed By: #### C BC #### [facility] [address] [place] [address] ABD/PELV W CONon [...] MAYRA BERNAL Date: 2022-01-04 05:19 Normal [facility] CT PELVIS WO CONon CT PELVIS [...] MANUEL BRENNANH Date: 2022-01-04 08:54 Normal [facility] CULTURE URINEon 01-04-2022 CULTURE URINE Culture Observations: No growth Normal [facility] Comment on above: Performed By: #### P [facility] #### [facility] [address] [place] [address] Dr. Shabnam Rae Covid-19 PCR ([facility])on 12-13 SARS-CoV-2 (COVID-19) RNA ELIJAH+probe Ql (Unsp spec) Not detected Normal NOT DETECTED [facility] Comment on above: Result Comment: When diagnostic testing is negative, the possibility of a false negative should be considered in the context of a patient's recent exposures and the presence of clinical signs and symptoms consistent with SARS-CoV-2. This test is not yet approved or cleared by the [place] Food and Drug Administration (FDA). This test was developed by [employer], [place], [place]. The performance characteristics of this test were validated by [facility]. The results are not intended to be used as the sole means for clinical diagnosis or patient management decisions. The [facility] is authorized under Clinical Laboratory Improvement [...] for this test is supported by the Print Finisher of Health and Human Service's declaration that [...] used). Performed By: #### C VDTB #### [facility] [address] [place] [address] Dr. Shabnam Rae ER URINE PROFILEon 2 Bilirubin Ql (U) Negative Normal NEGATIVE [facility] Comment on above: Performed By: #### P SASC #### [facility] [address] [place] [address] Dr. Shabnam Rae Clarity (U) CLEAR Normal CLEAR [facility] Comment on above: Performed By: #### P SASC #### [facility] [address] [place] [address] Dr. Shabnam Rae Color (U) YELLOW Normal YELLOW [facility] Comment on above: Performed By: #### P SASC #### [facility] [address] [place] [address] Dr. Shabnam Rae ERUAHD A micrscopic examination will be performed if indicated. Normal [facility] Comment on above: Performed By: #### P SASC #### [facility] [address] [place] [address] Dr. Shabnam Rae Glucose Ql (U) Negative Normal NEGATIVE [facility] Comment on above: Performed By: #### P SASC #### [facility] [address] [place] [address] Dr. Shabnam Rae Hemoglobin Ql (U) Negative Normal NEGATIVE [facility] Comment on above: Performed By: #### P SASC #### [facility] [address] [place] [address] Dr. Shabnam Rae Ketones Ql (U) Negative Normal NEGATIVE [facility] Comment on above: Performed By: #### P SASC #### [facility] [address] [place] [address] Dr. Shabnam Rae LEUKOCYTES Negative Normal NEGATIVE [facility] Comment on above: Performed By: #### P SASC #### [facility] [address] [address] [address] Shabnam Rae Nitrite Ql (U) Negative Normal NEGATIVE [facility] Comment on above: Performed By: #### P SASC #### [facility] [address] [place] [address] Dr. Shabnam Rae pH (U) 6.5 [pH] Normal 5-9 [facility] Comment on above: Performed By: #### P SASC #### [facility] [address] [address] [address] Shabnam Rae SPEC GRAVITY 1.010 Normal 1.005-<=1.025 [facility] Comment on above: Performed By: #### P SASC #### [facility] [address] [place] [address] Dr. Shabnam Rae UA PROTEIN Negative Normal NEGATIVE/ TRACE [facility] Comment on above: Performed By: #### P SASC #### [facility] [address] [place] [address] Dr. Shabnam Rae UR MICRO IND NOT INDICATED Normal [facility] Comment on above: Performed By: #### P SASC #### [facility] [address] [place] [address] Dr. Shabnam Rae Urobilinogen Qn (U) 0.2 {Sarai'U}/dL Normal 0.2 - 1. 0 [facility] Comment on above: Performed By: #### P SASC #### [facility] [address] [place] [address] Dr. Shabnam Rae LACTATE/LACTIC ACIDon 2021 Lactate [Moles/Vol] 1.0 mmol/L Normal 0.4-2.0 [facility] Comment on above: Performed By: #### P SASC #### [facility] [address] [place] [address] Dr. Shabnam Rae PROF CHEM 8 (BAS METB)on Anion gap [Moles/Vol] 10.0 mmol/L Normal [facility] Comment on above: Performed By: #### B MP #### [facility] [address] [address] [address] Shabnam Rae Calcium [Mass/Vol] 8.5 mg/dL Normal 8.5-10.1 [facility] Comment on above: Performed By: #### B MP #### [facility] [address] [address] [address] Shabnam Rae Chloride [Moles/Vol] 103 mmol/L Normal 98-107 [facility] Comment on above: Performed By: #### B MP #### [facility] [address] [address] [address] Shabnam Rae CO2 [Moles/Vol] 29.2 mmol/L Normal 21.0-32.0 [facility] Comment on above: Performed By: #### B MP #### [facility] [address] [address] [address] Shabnam Rae Creatinine [Mass/Vol] 1.25 mg/dL Normal 0.70-1.30 [facility] Comment on above: Performed By: #### B MP #### [facility] [address] [address] [address] Shabnam Rae EGFR-AF BURMESE >60 Normal >=60 [facility] Comment on above: Performed By: #### B MP #### [facility] [address] [address] [address] Shabnam Rae EGFR-NON AF BURMESE >60 Normal >=60 [facility] Comment on above: Performed By: #### B MP #### [facility] [address] [address] [address] Shabnam Rae Glucose [Mass/Vol] 132 mg/dL Critically high 74-106 [facility] Comment on above: Performed By: #### B MP #### [facility] [address] [address] [address] Shabnam Rae Potassium [Moles/Vol] 3.2 mmol/L Critically low 3.5-5.1 [facility] Comment on above: Performed By: #### B MP #### [facility] [address] [address] [address] Shabnam Rae Sodium [Moles/Vol] 139 mmol/L Normal 136-145 [facility] Comment on above: Performed By: #### B MP #### [facility] [address] [address] [address] Shabnam Rae Urea nitrogen [Mass/Vol] 19.0 mg/dL Critically high 7.0-18.0 [facility] Comment on above: Performed By: #### B MP #### [facility] [address] [address] [address] Shabnam Rae Urea nitrogen/Creatinine [Mass ratio] 15.2 mg/mg Normal [facility] Comment on above: Performed By: #### B MP #### [facility] [address] [address] [address] Shabnam Rae CERVICAL SPINE 2 OR 3 [facility] 07-06-2019 CERVICAL SPINE 2 OR 3 [facility] Department of Radiology [address] [place] [id number] Patient Name: MATTY GARCES : 1970 Sex: M Age: Race: White Pt. Location: Patient Status: O Ordered Date: 07/06/2019 9:10:00 AM Completed Date: 07/06/2019 09:21 AM Requesting Provider: LUCIANO VIEIRA Attending Provider: LUCIANO VIEIRA Report Copy To: VENUS MENDEZ Signs & Symptoms: M48.02 Spinal stenosis, cervical region I10 History: [place] Comments: , STAT READ , STAT READ [...] findings. Electronically signed by:Bernice Hoyt. Transcribed by: [email or web address], User Resident: RADAH CHIN Electronically Signed by: BERNICE HOYT @ 07/06/2019 08:52 PM I personally read this/these film(s) with this resident Normal [facility] Comment on above: Order Comment: , STA T READ , STAT READ , , , Ordering Provider - LUCIANO VIEIRA MD , CERVICAL SPINE 2 OR 3 [facility] 04-06-2019 CERVICAL SPINE 2 OR 3 [facility] Department of Radiology [address] [place] [address] Patient Name: MATTY GARCES : [...] FALLS Exam: CERVICAL SPINE 2 OR 3 [facility] CERVICAL SPINE 2 OR 3 [facility] 04/06/2019 7:28 AM EDT SIGNS AND [...] study. Electronically signed by:Bernice Hoyt. Transcribed by: [email or web address], User Resident: Electronically Signed by: BERNICE HOYT @ 04/06/2019 04:40 PM Normal [facility] Comment on above: Order Comment: AP/LA T, ODONTOID PLEASE DO SWIMMER'S VIEW FOLLOW UP HARDWARE AND ALIGNMENT, S/P ACDF, RECENT FALLS CERVICAL SPINE 2 OR 3 [facility] 02-17-2019 CERVICAL SPINE 2 OR 3 [facility] Department of Radiology [address] [place] [id number] Patient Name: MATTY GARCES : 1970 [...] ALIGNMENT Exam: CERVICAL SPINE 2 OR 3 [facility] CERVICAL SPINE 2 OR 3 VWS [...] findings. Electronically signed by:Bella King. Transcribed by: [email or web address], User Resident: EMILE TINAJERO Electronically Signed by: BELLA KING @ 02/20/2019 11:53 AM I personally read this/these film(s) with this resident Normal [facility] Comment on above: Order Comment: C-SPI NE 2 OR 3 VIEW POSTOP, EVALUATION HARDWARE AN ALIGNMENT BASIC METABOLIC PANELon 05-2 Calcium [Mass/Vol] 9.2 mg/dL Normal 8.6-10.3 The [facility] Comment on above: Order Comment: No: D o not add to previous draw Performed By: #### 5 0103 #### [facility] [address] [place] [address], [place] Chloride [Moles/Vol] 101 mmol/L Normal 98-107 [facility] Comment on above: Order Comment: No: D o not add to previous draw Performed By: #### 5 0103 #### [facility] [address] [place] [address], [place] CO2 [Moles/Vol] 26 mmol/L Normal 21-31 [facility] Comment on above: Order Comment: No: D o not add to previous draw Performed By: #### 5 0103 #### [facility] [address] [place] [address], [facility] Creatinine [Mass/Vol] 1.02 mg/dL Normal 0.70-1.30 [facility] Comment on above: Order Comment: No: D o not add to previous draw Performed By: #### 5 0103 #### [facility] [address] [place] [address], [facility] GFR/1.73 sq M predicted among blacks MDRD (S/P/Bld) [Vol rate/Area] mL/min/{1.73_m2} Normal >60 [facility] Comment on above: Order Comment: No: D o not add to previous draw Performed By: #### 5 0103 #### [facility] [address] [place] [address], [facility] GFR/1.73 sq M predicted among non-blacks MDRD (S/P/Bld) [Vol rate/Area] mL/min/{1.73_m2} Normal >60 [facility] Comment on above: Order Comment: No: D o not add to previous draw Performed By: #### 5 3 #### [facility] [address] [place] [address], [place] Glucose [Mass/Vol] 124 mg/dL High 70-100 [facility] Comment on above: Order Comment: No: D o not add to previous draw Performed By: #### 5 0103 #### [facility] [address] [place] [address], [place] Potassium [Moles/Vol] 3.9 mmol/L Normal 3.5-5.1 [facility] Comment on above: Order Comment: No: D o not add to previous draw Performed By: #### 5 3 #### [facility] [address] [place] [address], [facility] Sodium [Moles/Vol] 137 mmol/L Normal 136-145 [facility] Comment on above: Order Comment: No: D o not add to previous draw Performed By: #### 5 0103 #### [facility] [address] [place] [address], [facility] Urea nitrogen [Mass/Vol] 15 mg/dL Normal 7-25 [facility] Comment on above: Order Comment: No: D o not add to previous draw Performed By: #### 5 0103 #### [facility] [address] [place] [address], [facility] CBC COMPLETE BLOOD COUNTon - Erythrocyte distribution width (RBC) [Ratio] 13.9 % Normal 11.5-15.0 [facility] Comment on above: Order Comment: No: D o not add to previous draw Performed By: #### 5 0103 #### [facility] [address] [place] [address], [facility] Hematocrit (Bld) [Volume fraction] 50.0 % Normal 39.0-50.0 [facility] Comment on above: Order Comment: No: D o not add to previous draw Performed By: #### 5 0103 #### [facility] [address] [place] [address], [facility] Hemoglobin (Bld) [Mass/Vol] 16.0 g/dL Normal 13.0-17.0 [facility] Comment on above: Order Comment: No: D o not add to previous draw Performed By: #### 5 0103 #### [facility] [address] [place] [address], [facility] MCH (RBC) [Entitic mass] 27.5 pg Normal 27.0-33.0 [facility] Comment on above: Order Comment: No: D o not add to previous draw Performed By: #### 5 0103 #### [facility] [address] [place] [address], [facility] MCHC (RBC) [Mass/Vol] 32.0 g/dL Normal 32.0-35.0 [facility] Comment on above: Order Comment: No: D o not add to previous draw Performed By: #### 5 0103 #### [facility] [address] [place] [address], [facility] MCV (RBC) [Entitic vol] 85.9 fL Normal 82.0-98.0 [facility] Comment on above: Order Comment: No: D o not add to previous draw Performed By: #### 5 0103 #### [facility] [address] [facility] [place] [address], [facility] Nucleated RBC/100 WBC (Bld) [Ratio] 0 % Normal 0-0 [facility] Comment on above: Order Comment: No: D o not add to previous draw Performed By: #### 5 0103 #### [facility] [address] [facility] [place] [address], [facility] PLAT CNT 249 10*3/uL Normal 150-400 [facility] Comment on above: Order Comment: No: D o not add to previous draw Performed By: #### 5 0103 #### [facility] [address] [facility] [place] [address], [facility] RBC (Bld) [#/Vol] 5.82 10*6/uL High 4.20-5.70 [facility] Comment on above: Order Comment: No: D o not add to previous draw Performed By: #### 5 0103 #### [facility] [address] [facility] [place] [id number], [facility] WBC (Bld) [#/Vol] 15.85 10*3/uL High 4.00-10.60 [facility] Comment on above: Order Comment: No: D o not add to previous draw Performed By: #### 5 0103 #### [facility] [address] [facility] [place], [place] [id number] [place] [address] Operative Reporton 9 Operative Report MR#: [id number] I [facility] Pt. Name: Matty Garces Room #: [id number] Discharge Date: Birthdate: 1970 OPERATIVE REPORT DATE OF SURGERY: 01/30/2019 SURGEON: Luciano Vieira M.D. 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 POSTOPERATIVE DIAGNOSIS: Failed instrumentation at C6-7 on the right. CHEMICAL ANALYST: ADENIKE Lugo. ANESTHESIA: Endotracheal, Hogan. PROCEDURES: [...] Vieira M.D. Date Trans: 01/31/2019 02:31 A/sasha [id number] cc: Venus Mendez M.D. [address], [facility] [address] [place] [facility] CERVICAL SPINE 2 OR 3 [facility] 01-30-2019 CERVICAL SPINE 2 OR 3 [facility] Department of Radiology [address] [place] [phone] Patient Name: MATTY GARCES : 1970 [...] documentation Electronically signed by:Justus Montano. Transcribed by: [email or web address], User Resident: Electronically Signed by: JUSTUS MONTANO @ 01/30/2019 04:18 PM Normal [facility] Comment on above: Order Comment: C6-7 ACDF POC GLUCOSE LABon 01-30-2019 Glucose [Mass/Vol] 106 mg/dL High 70-100 [facility] Comment on above: Performed By: #### 5 0103 #### [facility] [address] *MRSA/MSSA DNA NASALon 01-23 *MRSA/MSSA DNA NASAL Clinical Report: (D ) Specimen: NASAL SWAB Collected: 01/23/2019 15:02 Status: Final Last Updated: 01/23/2019 20:14 MSSA DNA (Final) Methicillin Susceptible Staphylococcus aureus DNA Detected MRSA DNA (Final) No Methicillin Resistant Staphylococcus aureus DNA Detected Normal [facility] Comment on above: Performed By: #### 5 0103 #### [facility] [address] APTTon 01-23-2019 aPTT Coag (Bld) [Time] 35.4 s High 25.0-35.0 [facility] Comment on above: Result Comment: [...] THIS PURPOSE. Performed By: #### 5 73, 90174 #### [facility] [address] [place] [address], [facility] BASIC METABOLIC PANELon 05- Calcium [Mass/Vol] 9.5 mg/dL Normal 8.6-10.3 [facility] Comment on above: Performed By: #### 5 Al, 23304 #### [facility] [address] [place] [address], [facility] Chloride [Moles/Vol] 101 mmol/L Normal 98-107 [facility] Comment on above: Performed By: #### 5 7306, 52234 #### [facility] [address] [place] [address], [facility] CO2 [Moles/Vol] 29 mmol/L Normal 21-31 [facility] Comment on above: Performed By: #### 5 73, 41856 #### [facility] [address] [place] [address], [facility] Creatinine [Mass/Vol] 1.08 mg/dL Normal 0.70-1.30 [facility] Comment on above: Performed By: #### 5 73, 34900 #### [facility] [address] [place] [address], [facility] GFR/1.73 sq M predicted among blacks MDRD (S/P/Bld) [Vol rate/Area] mL/min/{1.73_m2} Normal >60 [facility] Comment on above: Performed By: #### 5 73, 06969 #### [facility] [address] [place] [address], [facility] GFR/1.73 sq M predicted among non-blacks MDRD (S/P/Bld) [Vol rate/Area] mL/min/{1.73_m2} Normal >60 [facility] Comment on above: Performed By: #### 5 7307, 20918 #### [facility] [address] [facility] [place] [address], [facility] Glucose [Mass/Vol] 87 mg/dL Normal 70-100 [facility] Comment on above: Performed By: #### 5 73, 01591 #### [facility] [address] [place] [address], [facility] Potassium [Moles/Vol] 4.0 mmol/L Normal 3.5-5.1 [facility] Comment on above: Performed By: #### 5 7307, 14809 #### [facility] [address] [facility]. [address] Sodium [Moles/Vol] 137 mmol/L Normal 136-145 [facility] Comment on above: Performed By: #### 5 7307, 66166 #### [facility] [address] [place] [address], [facility] Urea nitrogen [Mass/Vol] 12 mg/dL Normal 7-25 [facility] Comment on above: Performed By: #### 5 7307, 65057 #### [facility] [address] [facility] [place] [address], [facility] CBC W/DIFFon 01-23-2019 ABS BASOPHILS 0.1 10*3/uL Normal 0.0-0.2 The [facility] Comment on above: Performed By: #### 5 7307, 13490 #### [facility] [address] [facility] [place] [address], [facility] ABS IMM GRANS 0.0 10*3/uL Normal 0.0-0.2 [facility] Comment on above: Performed By: #### 5 7306, 92207 #### [facility] [address] [place] [address], [facility] ABS NEUTROPHILS 5.3 10*3/uL Normal 1.6-7.6 [facility] Comment on above: Performed By: #### 5 7306, 98930 #### [facility] [address] [place] [address], [place] Basophils/100 WBC (Bld) 0.9 % Normal 0.0-1.0 [facility] Comment on above: Performed By: #### 5 7306, 61855 #### [facility] [address] [place] [address], [place] Eosinophils (Bld) [#/Vol] 0.2 10*3/uL Normal 0.0-0.5 [facility] Comment on above: Performed By: #### 5 7306, 99729 #### [facility] [address] [place] [address], [facility] Eosinophils/100 WBC (Bld) 2.3 % Normal 0.0-6.0 [facility] Comment on above: Performed By: #### 5 7306, 85491 #### [facility] [address] [place] [address], [place] Erythrocyte distribution width (RBC) [Ratio] 13.8 % Normal 11.5-15.0 [facility] Comment on above: Performed By: #### 5 7306, 81991 #### [facility] [address] [place] [address], [place] Hematocrit (Bld) [Volume fraction] 49.6 % Normal 39.0-50.0 [facility] Comment on above: Performed By: #### 5 7306, 12748 #### [facility] [address] [place] [address], [place] Hemoglobin (Bld) [Mass/Vol] 16.4 g/dL Normal 13.0-17.0 [facility] Comment on above: Performed By: #### 5 7306, 02593 #### [facility] [address] [facility] [place] [address], [facility] IMMATURE GRANS 0.5 % Normal 0.0-1.0 The [facility] Comment on above: Performed By: #### 5 7306, 10607 #### [facility] [address] [facility] [place] [address], [facility] Lymphocytes (Bld) [#/Vol] 1.2 10*3/uL Normal 1.2-4.0 [facility] Comment on above: Performed By: #### 5 7306, 69904 #### [facility] [address] [place] [address], [facility] Lymphocytes/100 WBC (Bld) 16.6 % Low 20.0-45.0 [facility] Comment on above: Performed By: #### 7306, 49668 #### [facility] [address] [facility] [place] [address], [facility] MCH (RBC) [Entitic mass] 27.8 pg Normal 27.0-33.0 [facility] Comment on above: Performed By: #### 7306, 98807 #### [facility] [address] [facility] [address], [facility] MCHC (RBC) [Mass/Vol] 33.1 g/dL Normal 32.0-35.0 [facility] Comment on above: Performed By: #### 5 7306, 59917 #### [facility] [address] [facility] [place] [address], [facility] MCV (RBC) [Entitic vol] 84.2 fL Normal 82.0-98.0 [facility] Comment on above: Performed By: #### 5 7306, 55543 #### [facility] [address] [facility] [place] [address], [facility] Monocytes (Bld) [#/Vol] 0.7 10*3/uL Normal 0.1-1.0 [facility] Comment on above: Performed By: #### 5 7306, 48758 #### [facility] [address] [place] [id number], [place] MONOS 9.4 % Normal 5.0-12.0 [facility] Comment on above: Performed By: #### 5 7306, 76247 #### [facility] [address] [place] [id number], [facility] Neutrophils/100 WBC (Bld) 70.3 % Normal 40.0-72.0 [facility] Comment on above: Performed By: #### 5 7306, 36892 #### [facility] [address] [place] [address], [facility] Nucleated RBC/100 WBC (Bld) [Ratio] 0 % Normal 0-0 [facility] Comment on above: Performed By: #### 5 Al, 52004 #### [facility] [address] [place] [address], [facility] PLAT CNT 235 10*3/uL Normal 150-400 [facility] Comment on above: Performed By: #### 5 7306, 20588 #### [facility] [address] [place] [address], [facility] RBC (Bld) [#/Vol] 5.89 10*6/uL High 4.20-5.70 The [facility] Comment on above: Performed By: #### 5 7306, 99161 #### [facility] [address] [place] [id number], [place] WBC (Bld) [#/Vol] 7.48 10*3/uL Normal 4.00-10.60 [facility] Comment on above: Performed By: #### 5 7306, 85545 #### [facility] [address] [employer] [address] PROTHROMBIN TIMEon 9 INR Coag (PPP) [Relative time] 1.12 {INR} Normal 0.91-1.16 [facility] Comment on above: Result Comment: ACCC [...] CHEST 1995;108:231S-246S. Performed By: #### 5 7307, 63944 #### [facility] [address] [facility] PT Coag (PPP) [Time] 14.4 s Normal 12.3-14.8 [facility] Comment on above: Result Comment: ALL RESULTS MUST BE INTERPRETED WITH RESPECT TO BLOOD DRAWING ARTIFACT OR DILUTION ERROR OF ANTICOAGULANT AT THE TIME OF SAMPLING. Performed By: #### 5 7307, 64770 #### [facility] [address] [place] [address], [facility] TYPE AND SCREENon 01-23-2019 ABO INTERPRETATION A Normal [facility] Comment on above: Performed By: #### 5 7307, 14823 #### [facility] [address] [place] [address], [facility] RH INTERPRETATION Positive Normal [facility] Comment on above: Performed By: #### 5 7307, 66421 #### [address] [address], [facility] CT 3D CERVICAL SPINE WO CONT RASTon 01-12-2019 CT 3D CERVICAL SPINE WO CONTRAST [facility] Department of Radiology [address] [place] [id number] Patient Name: MATTY GARCES : 1970 Sex: M Age: Race: White Pt. Location: Patient Status: D Ordered Date: 01/10/2019 2:15:00 PM Completed Date: 01/12/2019 10:32 AM Requesting Provider: LUCIANO VIEIRA Attending Provider: LUCIANO VIEIRA Report Copy To: VENUS MENDEZ Signs & Symptoms: M48.02 Spinal stenosis, cervical region I10 History: Althea para auth # [id number] 01/10/19-02/09/19 [id number] *er Comments: Exam: CT 3D CERVICAL SPINE [...] incomplete Electronically signed by:Ten Garland. Transcribed by: [email or web address], User Resident: Electronically Signed by: TEN GARLAND @ 01/13/2019 09:18 AM Normal [facility] CERVICAL SPINE 2 OR 3 [facility] 01-05-2019 CERVICAL SPINE 2 OR 3 [facility] Department of Radiology [address] [place] [phone] Patient Name: MATTY GARCES : 1970 Sex: M Age: Race: White Pt. Location: Patient Status: O Ordered Date: 01/05/2019 9:00:00 AM Completed Date: 01/05/2019 09:06 AM Requesting Provider: LUCIANO VIEIRA Attending Provider: LUCIANO VIEIRA Report Copy To: Signs & Symptoms: M48.02 Spinal stenosis, cervical region I10 History: [place] Comments: , , , Ordering Provider - [...] findings. Electronically signed by:Ten Garland. Transcribed by: [email or web address], User Resident: SHELLY DELA CRUZ Electronically Signed by: TEN GARLAND @ 01/05/2019 12:37 PM I personally read this/these film(s) with this resident Normal [facility] Comment on above: Order Comment: , , = ========= , Ordering Provider - LUCIANO VIEIRA MD , CERVICAL SPINE 2 OR 3 VWSon 08-30-2018 CERVICAL SPINE 2 OR 3 VWS [facility] Department of Radiology [address] [place] [phone] Patient Name: MATTY GARCES : 1970 Sex: M Age: Race: White Pt. Location: Patient Status: O Ordered Date: 08/30/2018 9:35:00 AM Completed Date: 08/30/2018 09:43 AM Requesting Provider: LUCIANO VIEIRA Attending Provider: LUCIANO VIEIRA Report Copy To: VENUS MENDEZ Signs & Symptoms: M50.90 Cervical disc disorder, unsp, unspecified cervical region I10 History: [place] Comments: , POST OP XRAY AP/LAT ONLY [...] findings. Electronically signed by:Bella King. Transcribed by: [email or web address], User Resident: RAYN HEAD Electronically Signed by: BELLA KING @ 08/30/2018 05:45 PM I personally read this/these film(s) with this resident Normal [facility] Comment on above: Order Comment: , POS T OP XRAY AP/LAT ONLY , POST OP XRAY AP/LAT ONLY , , , Ordering Provider - LUCIANO VIEIRA MD , Operative Reporton 8 Operative Report MR#: [id number] I [facility] Pt. Name: Matty Garces Room #: [id number] Discharge Date: Birthdate: 1970 OPERATIVE REPORT DATE OF SURGERY: 08/17/2018 SURGEON: Luciano Vieira M.D. PREOPERATIVE DIAGNOSIS: Herniated cervical disk at C6-7. POSTOPERATIVE DIAGNOSIS: Herniated cervical disk at C6-7. CHEMICAL ANALYST: ADENIKE Larios. ANESTHESIA: Endotracheal, Braida. PROCEDURE: [...] Vieira M.D. Date Trans: 08/17/2018 11:25 P/mmo [id number] cc: Venus Mendez M.D. [address], [place] [address] [place] [facility] CERVICAL SPINE 2 OR 3 [facility] 08-17-2018 CERVICAL SPINE 2 OR 3 [facility] Department of Radiology [address] [place] [phone] Patient Name: MATTY GARCES : 1970 [...] findings. Electronically signed by:Bernice Hoyt. Transcribed by: [email or web address], User Resident: EMILE TINAJERO Electronically Signed by: BERNICE HOYT @ 08/18/2018 01:06 PM I personally read this/these film(s) with this resident Normal [facility] Comment on above: Order Comment: C6-7 ACDF with POC GLUCOSE LABon 08-17-2018 Glucose [Mass/Vol] 113 mg/dL High 70-100 The [facility] Comment on above: Performed By: #### 8 5499 #### [facility] [address] [place] [address], [facility] RBC'S 2 UNITSon 08-17-2018 CROSSMATCH INTERP 1 COMP Normal The [facility] Comment on above: Performed By: #### 8 6002 #### [facility] [address] [place] [address], [place] CROSSMATCH INTERP 2 COMP Normal The [facility] Comment on above: Performed By: #### 8 6002 #### [facility] [address] [place] [address], [facility] PRODUCT CODE 1 E0336 Normal The [facility] Comment on above: Performed By: #### 8 6002 #### [facility] [address] [place] [address], [facility] PRODUCT CODE 2 E0336 Normal The [facility] Comment on above: Performed By: #### 8 6002 #### [facility] [address] [place] [address], [facility] PRODUCT STATUS 1 RE Normal The [facility] Comment on above: Result Comment: Resu lt changed by IF on 08/20/2018 07:48. The previous value was XM. Performed By: #### 8 6002 #### [facility] [address] [place] [address], [facility] PRODUCT STATUS 2 RE Normal The [facility] Comment on above: Result Comment: Resu lt changed by IF on 08/20/2018 07:48. The previous value was XM. Performed By: #### 8 6002 #### [facility] [address] [place] [address], [place] UNIT ABO 1 A Normal [facility] Comment on above: Performed By: #### 8 6002 #### [facility] [address] [place] [address], [place] UNIT ABO 2 A Normal [facility] Comment on above: Performed By: #### 8 6002 #### [facility] [address] [place] [address], [place] UNIT ID 1 [id number] Normal The [facility] Comment on above: Performed By: #### 8 6002 #### [facility] [address] UNIT ID 2 [id number] Normal The [facility] Comment on above: Performed By: #### 8 6002 #### [facility] [address] [facility]. [address] UNIT RH 1 Positive Normal [facility] Comment on above: Performed By: #### 8 6002 #### [facility] [address] [facility] [address] UNIT RH 2 Positive Normal [facility] Comment on above: Performed By: #### 8 6002 #### [facility] [address] [facility]. [address] *MRSA/MSSA CULTUREon 018 *MRSA/MSSA CULTURE Clinical Report: (D) Specimen: NASAL SWAB Collected: 08/02/2018 12:37 Status: Final Last Updated: 08/03/2018 14:26 ISO (Final) No Methicillin Resistant Staphylococcus aureus Isolated (MRSA) ISO (Final) Methicillin Sensitive Staphylococcus aureus (MSSA) Isolated Normal [facility] Comment on above: Performed By: #### 3 1302 #### [facility] [address] [facility]. [address] APTTon 08-02-2018 aPTT Coag (Bld) [Time] 31.2 s Normal 25.0-35.0 [facility] Comment on above: Result Comment: ALL [...] THIS PURPOSE. Performed By: #### 5 [id number], [id number] #### [facility] [address] BASIC METABOLIC PANELon 07-15 Calcium [Mass/Vol] 9.4 mg/dL Normal 8.6-10.3 [facility] Comment on above: Performed By: #### 0 0071 #### [facility] [address] [place] [address], [place] Chloride [Moles/Vol] 103 mmol/L Normal 98-107 [facility] Comment on above: Performed By: #### 0 0071 #### [facility] [address] [place] [address], [place] CO2 [Moles/Vol] 29 mmol/L Normal 21-31 [facility] Comment on above: Performed By: #### 0 0071 #### [facility] [address] [place] [address], [place] Creatinine [Mass/Vol] 1.06 mg/dL Normal 0.70-1.30 [facility] Comment on above: Performed By: #### 0 0071 #### [facility] [address] [place] [address], [place] GFR/1.73 sq M predicted among blacks MDRD (S/P/Bld) [Vol rate/Area] mL/min/{1.73_m2} Normal >60 [facility] Comment on above: Performed By: #### 0 0071 #### [facility] [address] [place] [address], [place] GFR/1.73 sq M predicted among non-blacks MDRD (S/P/Bld) [Vol rate/Area] mL/min/{1.73_m2} Normal >60 [facility] Comment on above: Performed By: #### 0 0071 #### [facility] [address] [place] [address], [place] Glucose [Mass/Vol] 84 mg/dL Normal 70-100 [facility] Comment on above: Performed By: #### 0 0071 #### [facility] [address] [place] [address], [place] Potassium [Moles/Vol] 4.0 mmol/L Normal 3.5-5.1 [facility] Comment on above: Performed By: #### 0 0071 #### [facility] [address] [facility] [place] [address], [facility] Sodium [Moles/Vol] 140 mmol/L Normal 136-145 [facility] Comment on above: Performed By: #### 0 0071 #### [facility] [address] Urea nitrogen [Mass/Vol] 20 mg/dL Normal 7-25 [facility] Comment on above: Performed By: #### 0 1 #### [facility] [address] CBC W/DIFFon 08-02-2018 ABS BASOPHILS 0.1 10*3/uL Normal 0.0-0.2 [facility] Comment on above: Performed By: #### 5 3 #### [facility] [address] ABS IMM GRANS 0.1 10*3/uL Normal 0.0-0.2 [facility] Comment on above: Performed By: #### 5 102 #### [facility] [address] ABS NEUTROPHILS 4.2 10*3/uL Normal 1.6-7.6 [facility] Comment on above: Performed By: #### 5 102 #### [facility] [address] [place] [address], [facility] Basophils/100 WBC (Bld) 1.3 % High 0.0-1.0 [facility] Comment on above: Performed By: #### 5 102 #### [facility] [address] [place] [address], [facility] Eosinophils (Bld) [#/Vol] 0.1 10*3/uL Normal 0.0-0.5 [facility] Comment on above: Performed By: #### 5 0103 #### [facility] [address] [facility] [place] [address], [facility] Eosinophils/100 WBC (Bld) 2.0 % Normal 0.0-6.0 [facility] Comment on above: Performed By: #### 5 0103 #### [facility] [address] [facility] [place] [address], [facility] Erythrocyte distribution width (RBC) [Ratio] 13.6 % Normal 11.5-15.0 [facility] Comment on above: Performed By: #### 5 0103 #### [facility] [address] [facility] [place] [address], [facility] Hematocrit (Bld) [Volume fraction] 44.3 % Normal 39.0-50.0 [facility] Comment on above: Performed By: #### 5 0103 #### [facility] [address] [facility] [place] [address], [facility] Hemoglobin (Bld) [Mass/Vol] 15.1 g/dL Normal 13.0-17.0 [facility] Comment on above: Performed By: #### 5 0103 #### [facility] [address] [facility] [place] [address], [facility] IMMATURE GRANS 1.1 % High 0.0-1.0 [facility] Comment on above: Performed By: #### 5 0103 #### [facility] [address] [facility] [place] [address], [facility] Lymphocytes (Bld) [#/Vol] 1.2 10*3/uL Normal 1.2-4.0 [facility] Comment on above: Performed By: #### 5 3 #### [facility] [address] [place] [id number], [facility] Lymphocytes/100 WBC (Bld) 18.3 % Low 20.0-45.0 [facility] Comment on above: Performed By: #### 5 0103 #### [facility] [address] [facility] [place] [address], [facility] MCH (RBC) [Entitic mass] 29.0 pg Normal 27.0-33.0 [facility] Comment on above: Performed By: #### 5 0103 #### [facility] [address] [facility] [place] [address], [facility] MCHC (RBC) [Mass/Vol] 34.1 g/dL Normal 32.0-35.0 [facility] Comment on above: Performed By: #### 5 3 #### [facility] [address] [facility] [place] [address], [facility] MCV (RBC) [Entitic vol] 85.0 fL Normal 82.0-98.0 [facility] Comment on above: Performed By: #### 5 0103 #### [facility] [address] [facility] [place] [address], [facility] Monocytes (Bld) [#/Vol] 0.7 10*3/uL Normal 0.1-1.0 [facility] Comment on above: Performed By: #### 5 3 #### [facility] [address] [facility] [place] [address], [facility] MONOS 11.1 % Normal 5.0-12.0 [facility] Comment on above: Performed By: #### 5 3 #### [facility] [address] [facility] [address] Neutrophils/100 WBC (Bld) 66.2 % Normal 40.0-72.0 [facility] Comment on above: Performed By: #### 5 3 #### [facility] [address] [place] [address], [facility] Nucleated RBC/100 WBC (Bld) [Ratio] 0 % Normal 0-0 [facility] Comment on above: Performed By: #### 5 0103 #### [facility] [address] PLAT CNT 179 10*3/uL Normal 150-400 [facility] Comment on above: Performed By: #### 5 0103 #### [facility] [address] RBC (Bld) [#/Vol] 5.21 10*6/uL Normal 4.20-5.70 [facility] Comment on above: Performed By: #### 5 0103 #### [facility] [address] [place] [address], [facility] WBC (Bld) [#/Vol] 6.39 10*3/uL Normal 4.00-10.60 [facility] Comment on above: Performed By: #### 5 0103 #### [address] CERVICAL SPINE 4 OR 5 VIEWSo n 08-02-2018 CERVICAL SPINE 4 OR 5 VIEWS [facility] Department of Radiology [address] [place] [id number] Patient Name: MATTY GARCES : 1970 [...] findings. Electronically signed by:Bella King. Transcribed by: [email or web address], User Resident: EMILE TINAJERO Electronically Signed by: BELLA KING @ 08/03/2018 11:58 AM I personally read this/these film(s) with this resident Normal [facility] Comment on above: Order Comment: , PRE OP XRAY AP/LAT \EANDE\ FLEX/EX , PREOP XRAY AP/LAT \EANDE\ FLEX/EX , , , Ordering Provider - LUCIANO VIEIRA MD , PROTHROMBIN TIMEon 8 INR Coag (PPP) [Relative time] 1.15 {INR} Normal 0.91-1.16 [facility] Comment on above: Result Comment: ACCC [...] CHEST 1995;108:[id number]-246S. Performed By: #### 5 7307, 11650 #### [facility] [employer] [address] PT Coag (PPP) [Time] 14.7 s Normal 12.3-14.8 [facility] Comment on above: Result Comment: ALL RESULTS MUST BE INTERPRETED WITH RESPECT TO BLOOD DRAWING ARTIFACT OR DILUTION ERROR OF ANTICOAGULANT AT THE TIME OF SAMPLING. Performed By: #### 5 7307, [id number] #### [facility] [employer] [address] TYPE AND SCREENon 08-02-2018 ABO INTERPRETATION A Normal [facility] Comment on above: Order Comment: 2 uni ts 2 units 2 units 2 units 2 units Performed By: #### 6 2586 #### [facility] 3000 [place] [address], [facility] RH INTERPRETATION Positive Normal [facility] Comment on above: Order Comment: 2 uni ts 2 units 2 units 2 units 2 units Performed By: #### 6 2586 #### [facility] [address] [place] [address], [facility] URINALYSIS REFLEXon 08-02-20 Appearance (U) CLEAR Normal CLEAR [facility] Comment on above: Performed By: #### 3 0965 #### [facility] [address] [place] [address], [facility] Bilirubin [Mass/Vol] Negative Normal NEGATIVE [facility] Comment on above: Performed By: #### 3 0965 #### [facility] [address] [place] [address], [facility] BLOOD Negative Normal NEGATIVE [facility] Comment on above: Performed By: #### 3 0965 #### [facility] [address] [place] [address], [facility] Color (U) YELLOW Normal YELLOW [facility] Comment on above: Performed By: #### 3 0965 #### [facility] [address] [facility] [place] [address], [facility] Glucose [Mass/Vol] 150 mg/dL Abnormal NEGATIVE [facility] Comment on above: Performed By: #### 3 0965 #### [facility] [address] [facility] [place] [address], [facility] KETONE Negative Normal NEGATIVE [facility] Comment on above: Performed By: #### 3 0965 #### [facility] [address] [facility] [place] [address], [facility] [place] Negative Normal NEGATIVE [facility] Comment on above: Performed By: #### 3 0965 #### [facility] [address] [place] [address], [place] MICRO NOT DONE negative chemical reactions unless requested in original order Normal [facility] Comment on above: Performed By: #### 3 0965 #### [facility] [address] [facility] [place] [address], [facility] Nitrite Ql (U) Negative Normal NEGATIVE The [facility] Comment on above: Performed By: #### 3 0965 #### [facility] [address] [place] [address], [facility] pH (Bld) 5.0 Normal 5.0-8.0 [facility] Comment on above: Performed By: #### 3 0965 #### [facility] [address] [facility] [place] [address], [facility] Protein (U) [Mass/Vol] Negative Normal NEGATIVE [facility] Comment on above: Performed By: #### 3 0965 #### [facility] [address] SPEC GRAV 1.024 High 1.015-1.020 [facility] Comment on above: Performed By: #### 3 0965 #### [facility] [address] Vital Signs Date Time Vital Sign Value Performing Clinician Facility 07-03-2024 14:45-0400 Body height 188 cm Rubén Geiger MD Work Phone: [facility] 07-03-2024 14:45-0400 Body mass index (BMI) [Ratio] 37.62 kg/m2 Rubén Geiger MD Work Phone: [facility] 07-03-2024 14:45-0400 Body weight 132.9 kg Rubén Geiger MD Work Phone: [facility] 02-25-2022 10:30-0400 Blood Pressure Location Viola Grullon [facility] 02-25-2022 10:30-0400 Diastolic blood pressure 107 mm[Hg] Viola Lue [facility] 02-25-2022 10:30-0400 Heart rate 74 /min Viola Lue [facility] 02-25-2022 10:30-0400 Respiratory rate 16 /min Viola Lue [facility] 02-25-2022 10:30-0400 Systolic blood pressure 157 mm[Hg] Viola Lue [facility] Encounters Encounter Date Encounter Type Care Provider Facility Start: 07-04-2024 End: 07-05-2024 Telephone encounter Rubén Geiger MD Work Phone: [facility] Start: 07-03-2024 End: 07-03-2024 Office outpatient visit 25 minutes Rubén Geiger MD Work Phone: [facility] Comment on above: Excessive daytime sl eepiness (Primary Dx); Obstructive sleep apnea; Primary insomnia; Cubital tunnel syndrome on right Start: 07-03-2024 End: 07-03-2024 ambulatory RUBÉN GEIGER Not Available Start: 07-03-2024 End: 07-03-2024 Bamboo flowsheet Rubén Geiger MD Work Phone: [facility] Start: 07-03-2024 End: 07-03-2024 Bamboo flowsheet Rubén Geiger MD Work Phone: [facility] Start: 05-10-2024 End: 05-11-2024 Refill Rubén Geiger MD Work Phone: [facility] Comment on above: Primary insomnia Start: 03-27-2024 End: 03-27-2024 ambulatory RUBÉN Aden GEIGER Not Available Start: 01-10-2024 End: 01-10-2024 ambulatory VALENCIA DE LEÓN Not Available Start: 01-03-2024 End: 01-03-2024 [facility] Work Phone: Start: 01-03-2024 End: 01-03-2024 Departed Referred DPM Trey [facility] Work Phone: [facility] [place] [facility] Start: 12-29-2023 End: 12-29-2023 ambulatory RUBÉN Aden GEIGER Not Available Start: 11-29-2023 End: 11-30-2023 ambulatory Andisai Faustitis Facility:[facility] Start: 10-18-2023 End: 10-19-2023 ambulatory Diallo Faustitis Facility:[facility] Start: 09-27-2023 End: 09-27-2023 ambulatory RUBÉN GEIGER Not Available Start: 08-30-2023 End: 08-31-2023 ambulatory Andikeus Juanytjulianneas Christianneitis Facility:[facility] Start: 07-12-2023 End: 07-13-2023 ambulatory Andikeus Juanytautprasanna Faustitis Facility:[facility] Start: 06-14-2023 End: 06-15-2023 ambulatory Andikeus Juanytautprasanna Faustitis Facility:[facility] Start: 12-06-2022 End: 12-06-[address] VENUS MENDEZ . Facility: Start: 12-05-2022 Encounter for genera l adult medical examination without abnormal findings DR VENUS MENDEZ . The [facility] Start: 12-01-2022 End: 12-02-[address] [...] encounter procedure Viola Grullon [facility] Start: 01-04-2022 End: 01-05-[address] VENUS MENDEZ . Facility: Start: 01-30-2019 End: 02-01-2019 Evaluation and management of inpatient PROVIDER UNKNOWN Facility:[facility] Start: 08-17-2018 End: 08-18-2018 Patient encounter procedure PROVIDER UNKNOWN Facility:[facility] Procedures Date Procedure Procedure Detail Performing Clinician Start: 12-01-[address] FRANKLIN MENDEZ . Comment on above: Performed By: #### [facility] #### [facility] [address] [place] [address] Dr. Shabnam Rae Start: 01-30-2019 FUSION CERV JT W INT BD FUS DEV, ANT APPR A COL, OPEN AZ[facility]INE [facility] Start: 01-30-2019 REMOVAL OF INT FIX F ROM CERVCAL VERTEBRA, OPEN APPROACH [facility] Start: 01-23-2019 Antibody screen PROVIDE R UNKNOWN Comment on above: Performed By: #### 5 7307, [id number] #### [address] Start: 08-17-2018 ANESTH SPINE CORD SURGERY [...] By: #### 6 2586 #### [facility] [address] Start: 02-08-1998 H/O: vasectomy History of vasectomy Rubén Geiger MD Work Phone: Colonoscopy Viola Thrasherlucy Hemorrhoids (disorder) Viola Grullon Hernia of abdominal cavity (disorder) Viola Grullon Tonsillectomy Viola Grullon Plan of Treatment Date Care Activity Detail Author Start: 10-04-2024 End: 10-04-2024 Patient encounter procedure 10/04/2024 2:20 PM EST Office Visit [facility] [address] [facility] [address] [place] [address] Rubén Geiger MD 0452 [facility] [address] [address] [facility] Start: 07-03-2024 End: 07-03-2024 Patient encounter procedure [facility] Comment on above: Arrived Start: 05-14-2024 Influenza vaccination Influenza Vacc ine (#1) [facility] Start: 1970 Screening for malign ant neoplasm of colon [facility] Immunizations Immunization Date Immunization Notes Care Provider Fa cility 07-06-2023 influenza virus vacc ine, unspecified formulation Rubén Geiger MD Work Phone: [facility] Payers Date Payer Category Payer Self-pay [id number] 2022 Medicaid [id number] 2022 Medicaid [id number] 2022 Unknown 1970 Unknown [id number] 2.16.8 40.1.388557.3.579.2.647 1970 Unknown [id number] 2.16.8 40.1.820294.3.579.2.647 1970 Unknown [id number] 2.16.84 0.1.080166.3.579.2.593 1970 Unknown [id number] 2.16.84 0.1.954210.3.579.2.593 1970 Unknown [id number] 2.16.84 0.1.107483.3.579.2.593 1970 Unknown [id number] 2.16.84 0.1.972444.3.579.2.593 1970 Unknown [id number] 2.16.84 0.1.568816.3.579.2.593 1970 Unknown [id number] 2.16.84 0.1.203777.3.579.2.593 1970 Unknown [id number] 2.16. 840.1.432220.3.579.2.196 1970 Unknown [id number] 2.16. 840.1.155748.3.579.2.196 1969 Unknown [id number] 2.16. 840.1.053064.3.579.2.196 1969 Unknown [id number] 2.16. 840.1.863335.3.579.2.196 1969 Unknown [id number] 2.16. 840.1.447080.3.579.2.196 1969 Unknown [id number] 2.16.84 0.1.850488.3.579.2.1259 1969 Unknown [id number] 2.16.84 0.1.997590.3.579.2.1259 1969 Unknown [id number] 2.16.84 0.1.380503.3.579.2.1259 1969 Unknown [id number] 2.16.84 0.1.721714.3.579.2.1259 1969 Unknown [id number] 2.16.84 0.1.629690.3.579.2.1259 1969 Unknown [id number] 2.16.84 0.1.745422.3.579.2.1259 1959 Unknown [id number] Unknown [id number] Unknown [id number] 2.16.8 40.1.550472.3.579.2.531 Social History Date Type Detail Facility Tobacco smoking status No Smokin g Status Entered [facility] Start: 03-27-2024 End: 07-03-2024 Sex Assigned At Male [facility] Start: 05-15-2018 Tobacco smoking stat [facility] Ex-smoker (finding) [facility] Start: 1970 Sex Assigned At Male F [facility] Start: 03-11-2023 Tobacco smoking stat [facility] Never smoked tobacco [facility] Start: 03-11-2023 Tobacco use and exposure Smokeless tobacco non-user [facility] Start: 03-27-2024 End: 07-03-2024 Alcoholic beverage intake Ex-drinker (finding) [facility] Start: 03-27-2024 End: 07-03-2024 History of Social function [facility] Start: 1970 Sex assigned at Not on file [facility] Functional Status Date Assessment Result Facility 02-25-2022 Functional Status N/A [facility] Clinical Notes 02-25-2022 to 07-04-2024 [...] energy in the morning. [facility] [place]. [facility] 07-04-2024 Miscellaneous Notes left message regarding prescriptions earlier today and not being at pharmacy. I did call back and spoke to advising they were sent this afternoon. had mentioned Dr. Geiger was also going to start a Vitamin B to help boost energy in the morning. [facility] [place]. documented in this encounter [facility] 07-03-2024 History of Presen t illness Narrative [...] 1 mg, Oral, 2 times daily HYDROcodone-acetaminophen ([place]) 5-325 MG tablet hydrOXYzine pamoate (Vistaril) 25 [...] reflexes: Alycia's absent. Ankle clonus absent. Coordination Rgwbeu-nf-nhnf, rapid alternating movements and gguu-jb-ssyh normal bilaterally without dysmetria. Gait Normal casual, [...] months. documented in this encounter [facility] 06-09-2023 Note [facility] Continue GDMT- Diuretic therapy Monitor daily weights, I&O, fluid restriction 1.5-2L/day, renal function and electrolytes- [facility] 03-26-2022 Note PROCEDURE: XR FOOT [...] authenticated by: ALVINA CAICEDO Date: 2022-03-26 10:47 [facility] 02-25-2022 Hospital Discharg e instructions Patient [...] Watch the hydrocele for any changes. Take ybkp-iuw-zlloltn and prescription medicines only as told by [...] 02/17/2011 Document Revised: 09/10/2018 Document Reviewed: 09/10/2018 Certify Patient Education 2020 [place]. Follow Up Care 01/28/2022 10:36:35 With:Mitchel DELGADO, [place] Gregorio, URO Address: When: Unknown [facility] Evaluation + Plan note No data available for this section [facility] Evaluation note No assessment inform ation available [facility] Work Phone: Evaluation note Diagnosis Excessive [...] available for this section [facility] Summary Purpose Family History No Family History Records FoundNo Family History Records FoundNo Family History Records FoundNo Family History Records FoundNo Family History Records FoundNo Family History Records FoundNo Family History Records Found Advance Directives Advance Directive Response Recorded Date/ Time Advance Directives No May 12:42pm Hospital Course Note MR#: [id number] [place] Pt[address] [...] and content) DATE CREATED AUTHOR 07/19/[address] [facility] DATE CREATED AUTHOR AUTHOR'S ORGANIZ ATION 02/27/2022 [facility] DATE CREATED AUTHOR AUTHOR'S ORGANIZ ATION 12/08/2022 [facility] [place] [facility] DATE CREATED AUTHOR AUTHOR'S ORGANIZ ATION 06/17/2023 [facility] DATE CREATED AUTHOR AUTHOR'S ORGANIZ ATION 12/03/2023 [facility] DATE CREATED AUTHOR AUTHOR'S ORGANIZ ATION 03/28/[address] [facility] DATE CREATED AUTHOR AUTHOR'S ORGANIZ ATION 07/05/2024 [facility] EPIC Care Team (unrecognized sect ion and content) Team Status: Inactive Member Role Status Dates Trey Vallejo DPM MS Attending Provider Active Start: January 03, 2024 End: January 03, 2024 Photographic Editor Relationship Specialty Start Date End Date Venus Mendez MD [address] [place] [address] PCP - General Family Medicine 01/10/24 Photographic Editor Relationship Specialty Start Date End Date Venus Mendez MD [address] [place] [address] PCP - General Family Medicine 01/10/24 Photographic Editor Relationship Specialty Start Date End Date Venus Mendez MD [address] [place] [address] PCP - General Family Medicine 01/10/24 Photographic Editor Relationship Specialty Start Date End Date Venus Mendez MD [address] [place] [address] PCP - General Family Medicine 01/10/24 Goals [...] BE BASED ON THE PRIMARY CLINICAL RECORDS. [employer] provides no warranty or guarantee of the accuracy or completeness of information in this document.
[2024-09-23] MEDS: HYDROMORPHONE HCL 1 MG/ML CARTRIDGE IV ×2 (05:51→08:01)
[2024-09-23] MEDS: ONDANSETRON PF 4 MG/2 ML VIAL IV (05:51)
--- NOTE | 2024-09-23 05:52 | ED.GENADUL1 ---
HPI HPI - General Adult General Chief complaint: Extremity Injury, Lower Stated complaint: RT LEG FRACTURE Time Seen by Provider: 09/23/24 05:35 Source: patient Mode of arrival: ambulance Limitations: no limitations History of Present Illness HPI narrative: Patient is a 53-year-old male who is presenting to the ER today with chief complaint of a fall at home on the same level. Patient is taking baby aspirin daily, patient was just getting up from bed going to the bathroom. Patient had had a misstep, patient stated that he tripped try to catch his balance and patient had a awkward fall on his right foot and ankle and leg. Patient is having significant pain to right lower extremity. EMS staff went to patient's house, patient was laying on the ground. Patient had obvious deformity to right lower extremity. EMS was having difficulty with their splint in their vacuum splint, patient came with a modified splint/vacuum splint to the right lower extremity, ankle and foot. Patient states he did not hit his head. He has no headache or neck pain. No chest pain or shortness of breath. No abdominal pain, nausea or vomiting. No acute complaints. Patient has a chronic open ulceration to the left great toe. And doing chart review, patient was just discharged from the hospital the last several days and he was admitted to the hospital for left leg cellulitis. All systems are negative except as noted/marked. All systems reviewed and otherwise negative. Nurses note and vital signs reviewed and patient is not hypoxic. General: The patient appears to have moderate distress secondary to pain to right lower extremity. Patient is resting uncomfortably on cart. Patient is not toxic, lethargic, or listless Skin: Warm, dry, no pallor noted. There is no rash noted. No petechiae, purpura. Patient's left great toe was seen and evaluated. Patient has approximately 2 x 2 cm stage II/III healing ulceration to the base of the left great toe, no bleeding, no drainage, good granulation tissue, no localized signs of erythema or cellulitis. Dry dressing was on, this was repacked with Xeroform, dry dressing. Head: Normocephalic, atraumatic; no midline or paracervical tenderness to palpation; full range of motion of cervical spine no difficulty. Eye: Normal conjunctiva, no drainage, EOMI. PERRL Ears, Nose, Mouth, and Throat: oral mucosa is moist. Nares patent. Mouth without vesicles. Cardiovascular: Regular Rate and Rhythm, no murmur, gallop, rub Respiratory: Patient is in no distress, no accessory muscle use, lungs are clear to auscultation, no wheezing, rales or rhonchi Back: non-tender, no CVA tenderness bilaterally to percussion. No CT LS midline pain GI: no tenderness to palpation, no masses appreciated. No rebound, guarding, or rigidity noted. No distention Musculoskeletal: Patient has full range of motion of all of the extremities except to his right lower extremity. Patient has obvious deformity to the distal two thirds of his right tib-fib, right Achilles tendon is intact, mild to moderate tenderness palpation to bilateral malleoli. Patient has normal dorsalis pedis pulse. Normal cap refill to all 5 toes of the right foot. No pain in the right hip, no pain to palpation to the bony prominences of right knee. Full range of motion of bilateral upper extremities with no difficulty. no motor, sensory, or focal neurological deficits Neurological: A&O x4, normal speech Psychiatric: Cooperative Related Data Home Medications ?Medication ?Instructions ?Recorded ?Confirmed carvedilol 25 mg tablet 25 mg PO BID 06/14/23 09/23/24 doxazosin 8 mg tablet 8 mg PO DAILY 06/14/23 09/23/24 furosemide 20 mg tablet 20 mg PO DAILY 06/14/23 09/23/24 gabapentin 600 mg tablet 1,200 mg PO .QHS 06/14/23 09/23/24 glycopyrrolate 1 mg tablet 1 mg PO BID 06/14/23 09/23/24 hydroxyzine pamoate 25 mg capsule 25 mg PO QPM 06/14/23 09/23/24 pantoprazole 40 mg tablet,delayed 40 mg PO DAILY 06/14/23 09/23/24 release simvastatin 20 mg tablet 20 mg PO .qhs 06/14/23 09/23/24 modafinil 200 mg tablet 200 mg PO BID 09/04/23 09/23/24 potassium chloride 10 mEq 10 meq PO Q12H 09/04/23 09/23/24 tablet,extended release amantadine HCl 100 mg tablet 100 mg PO BID 12/28/23 09/23/24 cholecalciferol (vitamin D3) 125 5,000 unit PO DAILY 12/28/23 09/23/24 mcg (5,000 unit) capsule melatonin 10 mg capsule 10 mg PO .qhs 12/28/23 09/20/24 multivitamin (Daily Multi-Vitamin 1 tab PO DAILY 12/28/23 09/23/24 tablet) biotin 10 mg tablet 10 mg PO DAILY 09/19/24 09/23/24 citalopram 40 mg tablet 40 mg PO DAILY 09/20/24 09/23/24 gabapentin 600 mg tablet 600 mg PO DAILY 09/20/24 09/23/24 (Neurontin) testosterone cypionate 200 mg/mL 300 mg IM Q14D 09/20/24 09/23/24 intramuscular oil tizanidine 4 mg tablet 4 mg PO .qhs 09/20/24 09/23/24 Previous Rx's ?Medication ?Instructions ?Recorded aspirin 81 mg tablet,delayed 81 mg PO BID 30 days #60 tabs 01/03/24 release (Adult Low Dose Aspirin) cefdinir 300 mg capsule 600 mg (2 x 300 mg) PO DAILY #30 09/22/24 caps doxycycline monohydrate 100 mg 100 mg PO BID #30 caps 09/22/24 capsule Allergies Allergy/AdvReac Type Severity Reaction Status Date / Time No Known Drug Allergies Allergy Verified 09/23/24 05:38 Opioid HPI Opioid Management Most Recent Opioid Data: Last Pain Scale 10 09/23/24 06:15 09/23/24 Last Pain Assessment 09/22/24 09:00 Last ORT Total Score 6 09/19/24 22:17 09/19/24 Last ORT Risk Category Moderate Risk 09/19/24 22:17 09/19/24 [facility] Medical History Prolonged emergence from general anesthesia ?T88.59XA - Other complications of anesthesia, initial encounter (ICD-10) Pain management contract signed ?Z02.89 - Encounter for other administrative examinations (ICD-10) Back pain ?M54.9 - Dorsalgia, unspecified (ICD-10) PTSD (post-traumatic stress disorder) ?F43.10 - Post-traumatic stress disorder, unspecified (ICD-10) Depression ?F32.A - Depression, unspecified (ICD-10) Dysphagia ?R13.10 - Dysphagia, unspecified (ICD-10) Uvulitis ?K12.2 - Cellulitis and abscess of mouth (ICD-10) Insomnia ?G47.00 - Insomnia, unspecified (ICD-10) Migraine ?G43.909 - Migraine, unspecified, not intractable, without status migrainosus (ICD-10) GERD (gastroesophageal reflux disease) ?K21.9 - Gastro-esophageal reflux disease without esophagitis (ICD-10) Dyspnea on exertion ?R06.09 - Other forms of dyspnea (ICD-10) Heart valve disorder ?I38 - Endocarditis, valve unspecified (ICD-10) Hypoglycemia ?E16.2 - Hypoglycemia, unspecified (ICD-10) Delayed recovery from anesthesia Chronic foot ulcer ?L97.509 - Non-pressure chronic ulcer of other part of unspecified foot with unspecified severity (ICD-10) 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 - Central serous chorioretinopathy, unspecified eye (ICD-10) Chronic pain ?G89.29 - Other chronic pain (ICD-10) Narcolepsy ?G47.419 - 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) Anxiety ?F41.9 - Anxiety disorder, unspecified (ICD-10) Upper back pain ?M54.9 - Dorsalgia, unspecified (ICD-10) Low back pain ?M54.50 - Low back pain, unspecified (ICD-10) TMJ (dislocation of temporomandibular joint) ?S03.00XA - Dislocation of jaw, unspecified side, initial encounter (ICD-10) Obesity ?E66.9 - Obesity, unspecified (ICD-10) Sleep apnea ?G47.30 - Sleep apnea, unspecified (ICD-10) Hypertension ?I10 - Essential (primary) hypertension (ICD-10) Surgical History H/O foot surgery ?Z98.890 - Other specified postprocedural states (ICD-10) H/O radiofrequency ablation (RFA) of nerve of lumbar spine ?Z98.890 - Other specified postprocedural states (ICD-10) History of fusion of cervical spine ?Z98.1 - Arthrodesis status (ICD-10) H/O inguinal hernia repair ?Z98.890 - Other specified postprocedural states (ICD-10) ?Z87.19 - Personal history of other diseases of the digestive system (ICD-10) H/O repair of rotator cuff ?Z98.890 - Other specified postprocedural states (ICD-10) History of uvulopalatopharyngoplasty ?Z98.890 - Other specified postprocedural states (ICD-10) Family History Other Family history of diabetes mellitus Family history of hypertension Family history of myocardial infarction Family history of stroke Social History Within the past year, how often did you have a drink containing alcohol: monthly or less Smoking status: Never smoker Non-prescribed substance use: cannabis (any form) Previous occupational history: unemployed Highest level of school completed/degree received: some college, no degree Are you now , , , , never or living with a partner: Little interest or pleasure in doing things: not at all Feeling down, depressed, or hopeless: not at all Feel stressed/tense/nervous/anxious/difficulty sleeping: not at all Do you think of yourself as: don't know Gender Identity: male Exam Constitutional Vital Signs, click to edit/add: Last Vital Signs Temp 98 F 09/23/24 05:36 Pulse 81 09/23/24 06:31 Resp 19 09/23/24 06:31 BP 142/102 H 09/23/24 06:31 Pulse Ox 95 09/23/24 06:31 O2 Del Method Room Air 09/23/24 05:36 Course Vital Signs Vital signs: Vital Signs Temperature 98 F 09/23/24 05:36 Pulse Rate 70 09/23/24 05:36 Respiratory Rate 18 09/23/24 05:36 Blood Pressure 143/97 H 09/23/24 05:36 Pulse Oximetry 97 09/23/24 05:36 Oxygen Delivery Method Room Air 09/23/24 05:36 Temperature 98 F 09/23/24 05:36 Pulse Rate 81 09/23/24 06:31 Respiratory Rate 19 09/23/24 06:31 Blood Pressure 142/102 H 09/23/24 06:31 Pulse Oximetry 95 09/23/24 06:31 Oxygen Delivery Method Room Air 09/23/24 05:36 Medical Decision Making MDM Narrative Medical decision making narrative: Procedure note: Reduction and splint placement of comminuted, complex distal right tib-fib fracture by Dr Glass. With Rowan RN, Keri RN, and Owen RN in the room, supplies were ready to place a long posterior splint and sugar-tong splint. With some reduction in traction, patient did appear to have good alignment. Patient was then placed in a long posterior splint and long sugar-tong splint to the right lower extremity. Splint was assisted with . the patient was neurovascularly intact before and after the splint was placed. the affected bones/injured area had proper alignment in a splint. Education on splint care at home was given at bedside. Patient and family have no questions at discharge. Postreduction films show good AP alignment, the lateral view shows slightly more angulation than initially. After x-ray was seen, some anterior pressure was placed to the distal aspect of the fracture while patient splint was hardening, and this was held in place and his leg was repositioned so that the angulation would improve after the postreduction x-ray was done. Patient remained neurovascular intact the entire time before and after splint placement and after second slight reduction to improve the angulation that was seen on the lateral view. I did call Dr. Louis at [phone]. He recommended transferring patient to a tertiary care center. We had no surgery or anesthesia available today. He recommended secondary to trauma patient be better served at tertiary care center. Patient has been to [facility] many times, and has had several surgeries by Dr. Raymond in the past. 0700 patient has been transition to Dr. Mandujano to arrange final disposition and transfer the patient. Critical care time 45 minutes exclusive from separate billable procedures that were performed. The following was considered in the determination of critical care but not limited to the level of medical decision making, intensive cardiac and/or respiratory monitoring, frequent vital sign monitoring, evaluation of laboratory studies, evaluation of radiographic studies, oxygen monitoring, and constant monitoring and speaking to family at bedside Lab Data Lab results reviewed: Yes I reviewed the patient's lab results Labs: Lab Results 09/23/24 Range/Units 05:47 WBC 7.1 (4.0-11.0) 10^3/uL RBC 5.40 (4.70-6.10) 10^6/uL Hgb 14.5 (14.0-18.0) g/dL Hct 47.2 (42.0-54.0) % MCV 87.4 (80.0-94.0) fL MCH 26.9 (25.9-34.0) pg MCHC 30.7 (29.9-35.2) g/dL RDW 15.6 H (11.0-15.0) % Plt Count 180 (150-450) 10^3/uL MPV 9.6 (9.5-13.5) fL PT 12.9 H (9.0-11.6) sec INR 1.24 APTT 28.7 (22.3-36.2) sec Sodium 142 (136-145) mmol/L Potassium 3.8 (3.5-5.1) mmol/L Chloride 103 (98-107) mmol/L Carbon Dioxide 32.0 (21.0-32.0) mmol/L Anion Gap 10.8 BUN 5.0 L (7.0-18.0) mg/dL Creatinine 1.16 (0.70-1.30) mg/dL Est GFR ( Amer) >60 (>=60 mL/min/1.73m^2) Est GFR (Non-Af Amer) >60 (>=60 mL/min/1.73m^2) BUN/Creatinine Ratio 4.3 Glucose 111 H (74-106) mg/dL Calcium 9.0 (8.5-10.1) mg/dL Troponin I High Sens 10.0 (4.0-76.1) pg/mL Imaging Data CT scan - pelvis: Radiologist's impression: ITS Impressions Ankle X-Ray 09/23/24 05:36 IMPRESSION: 1. Acute, displaced fractures of the distal right tibia and fibula. 2. No acute abnormality of the right knee and right ankle. Electronically authenticated by: SHY MISTRY Date: 09/23/2024 06:35 Knee X-Ray 09/23/24 05:36 IMPRESSION: 1. Acute, displaced fractures of the distal right tibia and fibula. 2. No acute abnormality of the right knee and right ankle. Electronically authenticated by: SHY MISTRY Date: 09/23/2024 06:35 Tibia/Fibula X-Ray 09/23/24 05:36 IMPRESSION: 1. Acute, displaced fractures of the distal right tibia and fibula. 2. No acute abnormality of the right knee and right ankle. Electronically authenticated by: SHY MISTRY Date: 09/23/2024 06:35 Chest X-Ray 09/23/24 05:46 IMPRESSION: 1. Slightly limited by patient positioning. 2. No acute cardiopulmonary process. Electronically authenticated by: SHY MISTRY Date: 09/23/2024 06:35 Tibia/Fibula X-Ray 09/23/24 06:43 IMPRESSION: Acute mildly comminuted, displaced and angulated fractures of the distal right tibia and fibula diaphyses, the angulation has worsened since earlier today. Overlying splint material. Mild right knee degenerative change. Remainder of the right tibia/fibula radiographs is unremarkable. Electronically authenticated by: MICHAEL CASANOVA Date: 09/23/2024 07:22 ECG Data Attestation: I personally reviewed and interpreted this ECG as follows: (Artifact noted. EKG interpretation. Normal sinus rhythm at 72 beats a minute. Normal axis deviation. No acute ST elevation, no acute ectopy. QTc of 429. Nonspecific ST changes.) Discharge Plan Discharge Patient Disposition: Still a Patient
[2024-09-23 06:13] LABS: Hematocrit 47.2 % (42.0-54.0); Hemoglobin 14.5 g/dL (14.0-18.0); Mean Corpuscular HGB Conc 30.7 g/dL (29.9-35.2); Mean Corpuscular Hemoglobin 26.9 pg (25.9-34.0); Mean Corpuscular Volume 87.4 fL (80.0-94.0); Mean Platelet Volume 9.6 fL (9.5-13.5); Platelet Count 180 10^3/uL (150-450); Red Cell Distribution Width 15.6 % (11.0-15.0); White Blood Count 7.1 10^3/uL (4.0-11.0)
[2024-09-23 06:35] LABS: INR 1.24; Prothrombin Time 12.9 sec (9.0-11.6)
[2024-09-23 06:38] LABS: Partial Thromboplastin Time 28.7 sec (22.3-36.2)
--- NOTE | 2024-09-23 06:43 | XR_ITS ---
The [address] [address] Patient Name: MATTY WADE MRN: [id number] date: 1970 Sex: M Assigned Patient Location: ER Current Patient Location: ED.MAIN Accession/Order Number: [id number] Exam Date: 09/23/2024 06:48 Report Date: 09/23/2024 07:22 At the request of: KAYLIN COX Procedure: XR tibia fibula RT 2V Exam: Radiographs: XR tibia fibula RT 2V Reason for exam: reduction Comparison: Plain films from earlier today XR/XR tibia fibula RT 2V IMPRESSION: Acute mildly comminuted, displaced and angulated fractures of the distal right tibia and fibula diaphyses, the angulation has worsened since earlier today. Overlying splint material. Mild right knee degenerative change. Remainder of the right tibia/fibula radiographs is unremarkable. Electronically authenticated by: MICHAEL CASANOVA Date: 09/23/2024 07:22
[2024-09-23 06:48] LABS: Anion Gap 10.8; BUN Creatinine Ratio 4.3; Chloride 103 mmol/L (98-107); Estimated GFR (African America >60 (>=60 mL/min/1.73m^2); Estimated GFR (Non-African Ame >60 (>=60 mL/min/1.73m^2); Glucose 111 mg/dL (74-106); Potassium 3.8 mmol/L (3.5-5.1); Sodium 142 mmol/L (136-145)
--- NOTE | 2024-09-23 07:51 | ED.LOWEXI1 ---
HPI HPI - Extremity Injury (Lower) General Chief Complaint: Extremity Injury, Lower Stated Complaint: RT LEG FRACTURE Time Seen by Provider: 09/23/24 05:35 Source: patient Mode of arrival: ambulance Limitations: no limitations History of Present Illness HPI Narrative: 53-year-old presented to the emergency department and was initially seen by Dr. Glass and signed out to me after discussing the case with him thoroughly. Please see his full history and physical exam. Related Data Home Medications ?Medication ?Instructions ?Recorded ?Confirmed carvedilol 25 mg tablet 25 mg PO BID 06/14/23 09/23/24 doxazosin 8 mg tablet 8 mg PO DAILY 06/14/23 09/23/24 furosemide 20 mg tablet 20 mg PO DAILY 06/14/23 09/23/24 gabapentin 600 mg tablet 1,200 mg PO .QHS 06/14/23 09/23/24 glycopyrrolate 1 mg tablet 1 mg PO BID 06/14/23 09/23/24 hydroxyzine pamoate 25 mg capsule 25 mg PO QPM 06/14/23 09/23/24 pantoprazole 40 mg tablet,delayed 40 mg PO DAILY 06/14/23 09/23/24 release simvastatin 20 mg tablet 20 mg PO .qhs 06/14/23 09/23/24 modafinil 200 mg tablet 200 mg PO BID 09/04/23 09/23/24 potassium chloride 10 mEq 10 meq PO Q12H 09/04/23 09/23/24 tablet,extended release amantadine HCl 100 mg tablet 100 mg PO BID 12/28/23 09/23/24 cholecalciferol (vitamin D3) 125 5,000 unit PO DAILY 12/28/23 09/23/24 mcg (5,000 unit) capsule melatonin 10 mg capsule 10 mg PO .qhs 12/28/23 09/20/24 multivitamin (Daily Multi-Vitamin 1 tab PO DAILY 12/28/23 09/23/24 tablet) biotin 10 mg tablet 10 mg PO DAILY 09/19/24 09/23/24 citalopram 40 mg tablet 40 mg PO DAILY 09/20/24 09/23/24 gabapentin 600 mg tablet 600 mg PO DAILY 09/20/24 09/23/24 (Neurontin) testosterone cypionate 200 mg/mL 300 mg IM Q14D 09/20/24 09/23/24 intramuscular oil tizanidine 4 mg tablet 4 mg PO .qhs 09/20/24 09/23/24 Previous Rx's ?Medication ?Instructions ?Recorded aspirin 81 mg tablet,delayed 81 mg PO BID 30 days #60 tabs 01/03/24 release (Adult Low Dose Aspirin) cefdinir 300 mg capsule 600 mg (2 x 300 mg) PO DAILY #30 09/22/24 caps doxycycline monohydrate 100 mg 100 mg PO BID #30 caps 09/22/24 capsule Allergies Allergy/AdvReac Type Severity Reaction Status Date / Time No Known Drug Allergies Allergy Verified 09/23/24 05:38 Opioid HPI Opioid Management Most Recent Pain and Opioid Data: Last Pain Scale 10 09/23/24 06:15 09/23/24 Last Pain Assessment 09/22/24 09:00 Last ORT Total Score 6 09/19/24 22:17 09/19/24 Last ORT Risk Category Moderate Risk 09/19/24 22:17 09/19/24 PFS PFS Medical History Prolonged emergence from general anesthesia ?T88.59XA - Other complications of anesthesia, initial encounter (ICD-10) Pain management contract signed ?Z02.89 - Encounter for other administrative examinations (ICD-10) Back pain ?M54.9 - Dorsalgia, unspecified (ICD-10) PTSD (post-traumatic stress disorder) ?F43.10 - Post-traumatic stress disorder, unspecified (ICD-10) Depression ?F32.A - Depression, unspecified (ICD-10) Dysphagia ?R13.10 - Dysphagia, unspecified (ICD-10) Uvulitis ?K12.2 - Cellulitis and abscess of mouth (ICD-10) Insomnia ?G47.00 - Insomnia, unspecified (ICD-10) Migraine ?G43.909 - Migraine, unspecified, not intractable, without status migrainosus (ICD-10) GERD (gastroesophageal reflux disease) ?K21.9 - Gastro-esophageal reflux disease without esophagitis (ICD-10) Dyspnea on exertion ?R06.09 - Other forms of dyspnea (ICD-10) Heart valve disorder ?I38 - Endocarditis, valve unspecified (ICD-10) Hypoglycemia ?E16.2 - Hypoglycemia, unspecified (ICD-10) Delayed recovery from anesthesia Chronic foot ulcer ?L97.509 - Non-pressure chronic ulcer of other part of unspecified foot with unspecified severity (ICD-10) 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 - Central serous chorioretinopathy, unspecified eye (ICD-10) Chronic pain ?G89.29 - Other chronic pain (ICD-10) Narcolepsy ?G47.419 - 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) Anxiety ?F41.9 - Anxiety disorder, unspecified (ICD-10) Upper back pain ?M54.9 - Dorsalgia, unspecified (ICD-10) Low back pain ?M54.50 - Low back pain, unspecified (ICD-10) TMJ (dislocation of temporomandibular joint) ?S03.00XA - Dislocation of jaw, unspecified side, initial encounter (ICD-10) Obesity ?E66.9 - Obesity, unspecified (ICD-10) Sleep apnea ?G47.30 - Sleep apnea, unspecified (ICD-10) Hypertension ?I10 - Essential (primary) hypertension (ICD-10) Surgical History H/O foot surgery ?Z98.890 - Other specified postprocedural states (ICD-10) H/O radiofrequency ablation (RFA) of nerve of lumbar spine ?Z98.890 - Other specified postprocedural states (ICD-10) History of fusion of cervical spine ?Z98.1 - Arthrodesis status (ICD-10) H/O inguinal hernia repair ?Z98.890 - Other specified postprocedural states (ICD-10) ?Z87.19 - Personal history of other diseases of the digestive system (ICD-10) H/O repair of rotator cuff ?Z98.890 - Other specified postprocedural states (ICD-10) History of uvulopalatopharyngoplasty ?Z98.890 - Other specified postprocedural states (ICD-10) Family History Other Family history of diabetes mellitus Family history of hypertension Family history of myocardial infarction Family history of stroke Social History Within the past year, how often did you have a drink containing alcohol: monthly or less Smoking status: Never smoker Non-prescribed substance use: cannabis (any form) Previous occupational history: unemployed Highest level of school completed/degree received: some college, no degree Are you now , , , , never or living with a partner: Little interest or pleasure in doing things: not at all Feeling down, depressed, or hopeless: not at all Feel stressed/tense/nervous/anxious/difficulty sleeping: not at all Do you think of yourself as: don't know Gender Identity: male Exam Constitutional Vital Signs, click to edit/add: Last Vital Signs Temp 98 F 09/23/24 05:36 Pulse 72 09/23/24 06:59 Resp 12 09/23/24 06:59 BP 137/96 H 09/23/24 07:00 Pulse Ox 98 09/23/24 06:59 O2 Del Method Room Air 09/23/24 05:36 Course Vital Signs Vital signs: Vital Signs Temperature 98 F 09/23/24 05:36 Pulse Rate 70 09/23/24 05:36 Respiratory Rate 18 09/23/24 05:36 Blood Pressure 143/97 H 09/23/24 05:36 Pulse Oximetry 97 09/23/24 05:36 Oxygen Delivery Method Room Air 09/23/24 05:36 Temperature 98 F 09/23/24 05:36 Pulse Rate 72 09/23/24 06:59 Respiratory Rate 12 09/23/24 06:59 Blood Pressure 137/96 H 09/23/24 07:00 Pulse Oximetry 98 09/23/24 06:59 Oxygen Delivery Method Room Air 09/23/24 05:36 MDM - Extremity Injury (Lower) MDM Narrative Medical decision making narrative: The patient has a closed comminuted tibia-fibula fracture of his right leg. This has been partially reduced by Dr. Glass and splinted by Dr. Glass. I have spoken to Dr. Dwyer at [facility], orthopedics, who accepts the patient. He will be sent to the emergency department there and I have spoken to their emergency department physician. The patient is agreeable and stable for transfer. No evidence of compartment syndrome. Differential Diagnosis Differential diagnosis: Likely other (Fracture) Lab Data Attestation: I reviewed the patient's lab results. Labs: Lab Results 09/23/24 Range/Units 05:47 WBC 7.1 (4.0-11.0) 10^3/uL RBC 5.40 (4.70-6.10) 10^6/uL Hgb 14.5 (14.0-18.0) g/dL Hct 47.2 (42.0-54.0) % MCV 87.4 (80.0-94.0) fL MCH 26.9 (25.9-34.0) pg MCHC 30.7 (29.9-35.2) g/dL RDW 15.6 H (11.0-15.0) % Plt Count 180 (150-450) 10^3/uL MPV 9.6 (9.5-13.5) fL PT 12.9 H (9.0-11.6) sec INR 1.24 APTT 28.7 (22.3-36.2) sec Sodium 142 (136-145) mmol/L Potassium 3.8 (3.5-5.1) mmol/L Chloride 103 (98-107) mmol/L Carbon Dioxide 32.0 (21.0-32.0) mmol/L Anion Gap 10.8 BUN 5.0 L (7.0-18.0) mg/dL Creatinine 1.16 (0.70-1.30) mg/dL Est GFR ( Amer) >60 (>=60 mL/min/1.73m^2) Est GFR (Non-Af Amer) >60 (>=60 mL/min/1.73m^2) BUN/Creatinine Ratio 4.3 Glucose 111 H (74-106) mg/dL Calcium 9.0 (8.5-10.1) mg/dL Troponin I High Sens 10.0 (4.0-76.1) pg/mL Imaging Data Right tib-fib: Radiologist's impression: ITS Impressions Ankle X-Ray 09/23/24 05:36 IMPRESSION: 1. Acute, displaced fractures of the distal right tibia and fibula. 2. No acute abnormality of the right knee and right ankle. Electronically authenticated by: SHY MISTRY Date: 09/23/2024 06:35 Knee X-Ray 09/23/24 05:36 IMPRESSION: 1. Acute, displaced fractures of the distal right tibia and fibula. 2. No acute abnormality of the right knee and right ankle. Electronically authenticated by: SHY MISTRY Date: 09/23/2024 06:35 Tibia/Fibula X-Ray 09/23/24 05:36 IMPRESSION: 1. Acute, displaced fractures of the distal right tibia and fibula. 2. No acute abnormality of the right knee and right ankle. Electronically authenticated by: SHY MISTRY Date: 09/23/2024 06:35 Chest X-Ray 09/23/24 05:46 IMPRESSION: 1. Slightly limited by patient positioning. 2. No acute cardiopulmonary process. Electronically authenticated by: SHY MISTRY Date: 09/23/2024 06:35 Tibia/Fibula X-Ray 09/23/24 06:43 IMPRESSION: Acute mildly comminuted, displaced and angulated fractures of the distal right tibia and fibula diaphyses, the angulation has worsened since earlier today. Overlying splint material. Mild right knee degenerative change. Remainder of the right tibia/fibula radiographs is unremarkable. Electronically authenticated by: MICHAEL CASANOVA Date: 09/23/2024 07:22 Discharge Plan Discharge Chief Complaint: Extremity Injury, Lower Clinical Impression: Closed fracture of right tibia and fibula Patient Disposition: [facility] Time of Disposition Decision: 07:50 Discharge Location: [facility] Mode of Transportation: EMS
[2024-09-23 08:01] LABS: Basophils Abs Manual 0.07 10^3/uL (0.00-0.10); Eosinophils Absolute Manual 0.21 10^3/uL (0.00-0.70); Lymphocytes Absolute Manual 0.78 10^3/uL (1.20-3.80); Monocytes Absolute Manual 0.63 10^3/uL (0.30-0.80); Segmented Neut Absolute Manual 5.39 10^3/uL (1.4-6.5)
== END 2024-09-23 09:28 | disposition short-term general hospital (02) ==
PROVIDERS: Emergency Medicine; Emergency Provider Emergency Medicine; PCP Family Medicine
DX: S82.301A Unspecified fracture of lower end of right tibia, initial encounter for closed fracture (principal); S82.831A Other fracture of upper and lower end of right fibula, initial encounter for closed fracture; W01.0XXA Fall on same level from slipping, tripping and stumbling without subsequent striking against object, initial encounter; L97.529 Non-pressure chronic ulcer of other part of left foot with unspecified severity; Z98.1 Arthrodesis status
CPT/HCPCS: 36415; 71045; 73562; 73590; 73610; 80048; 84484; 85007; 85027; 85610; 85730; 93005; 96374; 96375; 96376; 99285; J1171; J2405

== ENCOUNTER 2024-10-05 16:01 | Emergency (ER) | payer MEDICAID, SELFPAY ==
[2024-10-05 16:18] VITALS: BP 126/72; PULSE 89; TEMP 36.8; O2SAT 94; BMI 39.8
--- NOTE | 2024-10-05 16:23 | US_ITS ---
The [address] [address] Patient Name: MATTY WADE MRN: [id number] date: 1970 Sex: M Assigned Patient Location: ER Current Patient Location: ED.MAIN Accession/Order Number: [id number] Exam Date: 10/05/2024 19:00 Report Date: 10/05/2024 20:16 At the request of: TAMEKA DUGGAN Procedure: US venous doppler LE RT EXAM: US Duplex Right Lower Extremity Veins CLINICAL INDICATION: swelling post surgery TECHNIQUE: Real-time duplex ultrasound scan of the right lower extremity veins integrating B-mode two-dimensional vascular structure, Doppler spectral analysis, color flow Doppler imaging and compression. COMPARISON: No relevant prior studies available. FINDINGS: DEEP VEINS: Unremarkable. No DVT in the visualized common femoral, femoral, proximal deep femoral or popliteal veins. The veins demonstrate normal color flow, are normally compressible, with normal phasic flow and/or augmentation response. SUPERFICIAL VEINS: Unremarkable. No thrombus in the visualized great saphenous vein. SOFT TISSUES: No acute findings. No popliteal cyst. US/US venous doppler LE RT IMPRESSION: No evidence of DVT in the right lower extremity veins. Electronically authenticated by: DIOMEDES NAM Date: 10/05/2024 20:16
[2024-10-05 17:12] LABS: Basophils Absolute Auto 0.1 10^3/uL (0.0-0.1); Basophils Percent Auto 0.8 % (0.2-2.0); Eosinophils Absolute Auto 0.2 10^3/uL (0.0-0.7); Eosinophils Percent Auto 2.2 % (0.9-7.0); Hemoglobin 12.5 g/dL (14.0-18.0); Immature Granulocytes Abs Auto 0.21 10^3/uL (0.00-0.03); Immature Granulocytes Pct Auto 2.3 % (0.0-0.5); Lymphocytes Absolute Auto 0.9 10^3/uL (1.2-3.8); Lymphocytes Percent Auto 9.8 % (20.5-60.0); Mean Corpuscular HGB Conc 31.3 g/dL (29.9-35.2); Mean Corpuscular Volume 86.4 fL (80.0-94.0); Mean Platelet Volume 9.2 fL (9.5-13.5); Monocytes Absolute Auto 0.7 10^3/uL (0.3-0.8); Monocytes Percent Auto 7.7 % (1.7-12.0); Neutrophils Percent Auto 77.2 % (43.0-75.0); Platelet Count 240 10^3/uL (150-450); Red Blood Count 4.63 10^6/uL (4.70-6.10); Red Cell Distribution Width 15.3 % (11.0-15.0); White Blood Count 9.1 10^3/uL (4.0-11.0)
[2024-10-05 17:28] LABS: Alanine Aminotransferase 28 U/L (16-63); Albumin Globulin Ratio 0.7; Albumin Level 3.2 g/dL (3.4-5.0); Alkaline Phosphatase 134 U/L (46-116); Anion Gap 5.9; Aspartate Amino Transferase 25 U/L (15-37); BUN Creatinine Ratio 8.3; Bilirubin Total 0.7 mg/dL (0.2-1.0); Calcium 9.6 mg/dL (8.5-10.1); Carbon Dioxide 34.8 mmol/L (21.0-32.0); Chloride 98 mmol/L (98-107); Estimated GFR (African America >60 (>=60 mL/min/1.73m^2); Estimated GFR (Non-African Ame >60 (>=60 mL/min/1.73m^2); Globulin 4.4 g/dL; Glucose 96 mg/dL (74-106); Potassium 3.7 mmol/L (3.5-5.1); Sodium 135 mmol/L (136-145); Total Protein 7.6 g/dL (6.4-8.2)
--- NOTE | 2024-10-05 18:40 | ED.LOWEXI1 ---
HPI HPI - Extremity Injury (Lower) General Chief Complaint: Extremity Injury, Lower Stated Complaint: FOOT PAIN, HOME HEALTH POSS BLOOD CLOT Time Seen by Provider: 10/05/24 16:23 Source: patient and family Mode of arrival: Wheelchair Limitations: physical limitation History of Present Illness HPI Narrative: 54 year old male presents to the ED for increased pain, swelling to his right lower leg. His visiting nurse noticed swelling, increased warmth over the past 2-3 days. Pt denies fever, chills, weakness. He took oxycodone this morning. He is accompanied by family. Pt reports a fracture to the right tibia and fibula on 09/23/24; he had surgery on 09/24/24 at [facility]. He is taking two antibiotics for cellulitis; he has one week left. His family member states one is doxycycline; she cannot recall the name of the other. He was advised to come to the ED to rule out DVT. He reports he has one oxycodone left; states he was prescribed 10 after the surgery. X-ray from 09/23/24: Acute mildly comminuted, displaced and angulated fractures of the distal right tibia and fibula diaphyses. Related Data Home Medications ?Medication ?Instructions ?Recorded ?Confirmed carvedilol 25 mg tablet 25 mg PO BID 06/14/23 09/23/24 doxazosin 8 mg tablet 8 mg PO DAILY 06/14/23 09/23/24 furosemide 20 mg tablet 20 mg PO DAILY 06/14/23 09/23/24 gabapentin 600 mg tablet 1,200 mg PO .QHS 06/14/23 09/23/24 glycopyrrolate 1 mg tablet 1 mg PO BID 06/14/23 09/23/24 hydroxyzine pamoate 25 mg capsule 25 mg PO QPM 06/14/23 09/23/24 pantoprazole 40 mg tablet,delayed 40 mg PO DAILY 06/14/23 09/23/24 release simvastatin 20 mg tablet 20 mg PO .qhs 06/14/23 09/23/24 modafinil 200 mg tablet 200 mg PO BID 09/04/23 09/23/24 potassium chloride 10 mEq 10 meq PO Q12H 09/04/23 09/23/24 tablet,extended release amantadine HCl 100 mg tablet 100 mg PO BID 12/28/23 09/23/24 cholecalciferol (vitamin D3) 125 5,000 unit PO DAILY 12/28/23 09/23/24 mcg (5,000 unit) capsule melatonin 10 mg capsule 10 mg PO .qhs 12/28/23 09/20/24 multivitamin (Daily Multi-Vitamin 1 tab PO DAILY 12/28/23 09/23/24 tablet) biotin 10 mg tablet 10 mg PO DAILY 09/19/24 09/23/24 citalopram 40 mg tablet 40 mg PO DAILY 09/20/24 09/23/24 gabapentin 600 mg tablet 600 mg PO DAILY 09/20/24 09/23/24 (Neurontin) testosterone cypionate 200 mg/mL 300 mg IM Q14D 09/20/24 09/23/24 intramuscular oil tizanidine 4 mg tablet 4 mg PO .qhs 09/20/24 09/23/24 Previous Rx's ?Medication ?Instructions ?Recorded aspirin 81 mg tablet,delayed 81 mg PO BID 30 days #60 tabs 01/03/24 release (Adult Low Dose Aspirin) cefdinir 300 mg capsule 600 mg (2 x 300 mg) PO DAILY #30 09/22/24 caps doxycycline monohydrate 100 mg 100 mg PO BID #30 caps 09/22/24 capsule oxycodone 5 mg tablet 5 mg PO Q8H PRN pain 5 days #15 10/05/24 tabs Allergies Allergy/AdvReac Type Severity Reaction Status Date / Time No Known Drug Allergies Allergy Verified 10/05/24 16:18 Opioid HPI Opioid Management Most Recent Pain and Opioid Data: Last Pain Scale 8 10/05/24 19:40 10/05/24 Last ED Pain Assessment 10/05/24 20:54 Last MAR Pain Assessment 10/05/24 18:51 Last ORT Total Score 6 09/19/24 22:17 09/19/24 Last ORT Risk Category Moderate Risk 09/19/24 22:17 09/19/24 Review of Systems ROS Constitutional Denies: fever or chills Cardiovascular Reports: swelling of feet/ankles; Denies: chest pain or lightheadedness Respiratory Denies: shortness of breath Gastrointestinal Denies: abdominal pain Musculoskeletal Denies: back pain Integumentary/Breast Reports: redness, skin swelling and changes in skin color Neurological Denies: numbness in extremities or weakness in extremities [facility] Medical History Prolonged emergence from general anesthesia ?T88.59XA - Other complications of anesthesia, initial encounter (ICD-10) Pain management contract signed ?Z02.89 - Encounter for other administrative examinations (ICD-10) Back pain ?M54.9 - Dorsalgia, unspecified (ICD-10) PTSD (post-traumatic stress disorder) ?F43.10 - Post-traumatic stress disorder, unspecified (ICD-10) Depression ?F32.A - Depression, unspecified (ICD-10) Dysphagia ?R13.10 - Dysphagia, unspecified (ICD-10) Uvulitis ?K12.2 - Cellulitis and abscess of mouth (ICD-10) Insomnia ?G47.00 - Insomnia, unspecified (ICD-10) Migraine ?G43.909 - Migraine, unspecified, not intractable, without status migrainosus (ICD-10) GERD (gastroesophageal reflux disease) ?K21.9 - Gastro-esophageal reflux disease without esophagitis (ICD-10) Dyspnea on exertion ?R06.09 - Other forms of dyspnea (ICD-10) Heart valve disorder ?I38 - Endocarditis, valve unspecified (ICD-10) Hypoglycemia ?E16.2 - Hypoglycemia, unspecified (ICD-10) Delayed recovery from anesthesia Chronic foot ulcer ?L97.509 - Non-pressure chronic ulcer of other part of unspecified foot with unspecified severity (ICD-10) 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 - Central serous chorioretinopathy, unspecified eye (ICD-10) Chronic pain ?G89.29 - Other chronic pain (ICD-10) Narcolepsy ?G47.419 - 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) Anxiety ?F41.9 - Anxiety disorder, unspecified (ICD-10) Upper back pain ?M54.9 - Dorsalgia, unspecified (ICD-10) Low back pain ?M54.50 - Low back pain, unspecified (ICD-10) TMJ (dislocation of temporomandibular joint) ?S03.00XA - Dislocation of jaw, unspecified side, initial encounter (ICD-10) Obesity ?E66.9 - Obesity, unspecified (ICD-10) Sleep apnea ?G47.30 - Sleep apnea, unspecified (ICD-10) Hypertension ?I10 - Essential (primary) hypertension (ICD-10) Surgical History H/O foot surgery ?Z98.890 - Other specified postprocedural states (ICD-10) H/O radiofrequency ablation (RFA) of nerve of lumbar spine ?Z98.890 - Other specified postprocedural states (ICD-10) History of fusion of cervical spine ?Z98.1 - Arthrodesis status (ICD-10) H/O inguinal hernia repair ?Z98.890 - Other specified postprocedural states (ICD-10) ?Z87.19 - Personal history of other diseases of the digestive system (ICD-10) H/O repair of rotator cuff ?Z98.890 - Other specified postprocedural states (ICD-10) History of uvulopalatopharyngoplasty ?Z98.890 - Other specified postprocedural states (ICD-10) Family History Other Family history of diabetes mellitus Family history of hypertension Family history of myocardial infarction Family history of stroke Social History Within the past year, how often did you have a drink containing alcohol: monthly or less Smoking status: Never smoker Non-prescribed substance use: cannabis (any form) Previous occupational history: unemployed Highest level of school completed/degree received: some college, no degree Are you now , , , , never or living with a partner: Little interest or pleasure in doing things: not at all Feeling down, depressed, or hopeless: not at all Feel stressed/tense/nervous/anxious/difficulty sleeping: not at all Do you think of yourself as: don't know Gender Identity: male Exam Constitutional Vital Signs, click to edit/add: Last Vital Signs Temp 98.3 F 10/05/24 16:18 Pulse 89 10/05/24 16:18 Resp 20 10/05/24 16:18 BP 126/72 10/05/24 16:18 Pulse Ox 94 L 10/05/24 16:18 O2 Del Method Room Air 10/05/24 16:18 Common normals: no apparent distress and oriented x3 General appearance: cooperative Eye Common normals: conjunctivae normal and no scleral icterus Neck & C-Spine Common normals: supple Respiratory Common normals: normal respiratory effort Effort & inspection: able to speak in complete sentences and symmetric chest movement Cardio Common normals: regular rate Peripheral pulses: posterior tibial pulses present and dorsalis pedis pulses present Extremity Other: Bruising in various stages of healing noted to right knee, lower leg, foot. There are sutures in place to surgical sites on the right medial lower leg, above the knee, and to the proximal lower leg. No erythema or drainage from the sites. There is swelling to the right lower leg. No increased warmth noted when compared to the left leg. Tenderness to right leg. Distal sensation intact. Pedal pulses palpable. Neuro Common normals: oriented x3 and moves all extremities Sensorium/orientation: awake and alert Speech: speech normal Course Vital Signs Vital signs: Vital Signs Temperature 98.3 F 10/05/24 16:18 Pulse Rate 89 10/05/24 16:18 Respiratory Rate 20 10/05/24 16:18 Blood Pressure 126/72 10/05/24 16:18 Pulse Oximetry 94 L 10/05/24 16:18 Oxygen Delivery Method Room Air 10/05/24 16:18 Temperature 98.3 F 10/05/24 16:18 Pulse Rate 89 10/05/24 16:18 Respiratory Rate 20 10/05/24 16:18 Blood Pressure 126/72 10/05/24 16:18 Pulse Oximetry 94 L 10/05/24 16:18 Oxygen Delivery Method Room Air 10/05/24 16:18 MDM - Extremity Injury (Lower) MDM Narrative Medical decision making narrative: Venous Doppler was negative for DVT of the RLE. WBC count was unremarkable. Findings were discussed with the patient and his family member. He has antibiotics at home that he is going to continue as directed. He reported improvement in his discomfort with the medication he was given here. [facility] was reviewed. A prescription was provided for oxycodone. Follow up with pcp and the orthopedic surgeon for a recheck, further evaluation and treatment. Differential Diagnosis Differential diagnosis: Likely other (DVT, cellulitis, leg pain. ) Medical Records Attestation: I reviewed the patient's medical records. Lab Data Attestation: I reviewed the patient's lab results. Labs: Lab Results 01/23/25 Range/Units 17:01 WBC 9.1 (4.0-11.0) 10^3/uL RBC 4.63 L (4.70-6.10) 10^6/uL Hgb 12.5 L (14.0-18.0) g/dL Hct 40.0 L (42.0-54.0) % MCV 86.4 (80.0-94.0) fL MCH 27.0 (25.9-34.0) pg MCHC 31.3 (29.9-35.2) g/dL RDW 15.3 H (11.0-15.0) % Plt Count 240 (150-450) 10^3/uL MPV 9.2 L (9.5-13.5) fL Neut % (Auto) 77.2 H (43.0-75.0) % Lymph % (Auto) 9.8 L (20.5-60.0) % [facility] % (Auto) 7.7 (1.7-12.0) % Eos % (Auto) 2.2 (0.9-7.0) % Baso % (Auto) 0.8 (0.2-2.0) % Neut # (Auto) 7.0 H (1.4-6.5) 10^3/uL Lymph # (Auto) 0.9 L (1.2-3.8) 10^3/uL [facility] # (Auto) 0.7 (0.3-0.8) 10^3/uL Eos # (Auto) 0.2 (0.0-0.7) 10^3/uL Baso # (Auto) 0.1 (0.0-0.1) 10^3/uL Abs Immat Gran (auto) 0.21 H (0.00-0.03) 10^3/uL Imm/Tot Granulo (auto) 2.3 H (0.0-0.5) % Sodium 135 L (136-145) mmol/L Potassium 3.7 (3.5-5.1) mmol/L Chloride 98 (98-107) mmol/L Carbon Dioxide 34.8 H (21.0-32.0) mmol/L Anion Gap 5.9 BUN 9.0 (7.0-18.0) mg/dL Creatinine 1.08 (0.70-1.30) mg/dL Est GFR ( Amer) >60 (>=60 mL/min/1.73m^2) Est GFR (Non-Af Amer) >60 (>=60 mL/min/1.73m^2) BUN/Creatinine Ratio 8.3 Glucose 96 (74-106) mg/dL Calcium 9.6 (8.5-10.1) mg/dL Total Bilirubin 0.7 (0.2-1.0) mg/dL AST 25 (15-37) U/L ALT 28 (16-63) U/L Alkaline Phosphatase 134 H (46-116) U/L Total Protein 7.6 (6.4-8.2) g/dL Albumin 3.2 L (3.4-5.0) g/dL Globulin 4.4 g/dL Albumin/Globulin Ratio 0.7 Imaging Data Venous Doppler: Attestation: I have reviewed the pertinent imaging results. Radiologist's impression: ITS Impressions Venous Doppler Study 10/05/24 16:23 IMPRESSION: No evidence of DVT in the right lower extremity veins. Electronically authenticated by: DIOMEDES NAM Date: 10/05/2024 20:16 Discharge Plan Discharge Chief Complaint: Extremity Injury, Lower Clinical Impression: Leg pain, right Patient Disposition: Home, Self-Care Time of Disposition Decision: 20:29 Condition: Good Mode of Transportation: Private Vehicle Prescriptions / Home Meds: New oxycodone 5 mg tablet 5 mg PO Q8H PRN (Reason: pain) 5 Days Qty: 15 0RF No Action potassium chloride 10 mEq tablet extended release 10 meq PO Q12H modafinil 200 mg tablet 200 mg PO BID Patient Comments: am and noon gabapentin 600 mg tablet 1,200 mg PO .QHS Rx Instructions: 600 MG QAM AND 1200 MG QHS carvedilol 25 mg tablet 25 mg PO BID Rx Instructions: must administer with a meal/food doxazosin 8 mg tablet 8 mg PO DAILY simvastatin 20 mg tablet 20 mg PO .qhs pantoprazole 40 mg tablet,delayed release (DR/EC) 40 mg PO DAILY glycopyrrolate 1 mg tablet 1 mg PO BID furosemide 20 mg tablet 20 mg PO DAILY hydroxyzine pamoate 25 mg capsule 25 mg PO QPM cholecalciferol (vitamin D3) 125 mcg (5,000 unit) capsule 5,000 unit PO DAILY multivitamin [Daily Multi-Vitamin] Tablet 1 tab PO DAILY melatonin 10 mg capsule 10 mg PO .qhs amantadine HCl 100 mg tablet 100 mg PO BID aspirin [Adult Low Dose Aspirin] 81 mg tablet,delayed release (DR/EC) 81 mg PO BID 30 Days Qty: 60 0RF biotin 10 mg tablet 10 mg PO DAILY citalopram 40 mg tablet 40 mg PO DAILY tizanidine 4 mg tablet 4 mg PO .qhs testosterone cypionate 200 mg/mL oil 300 mg IM Q14D gabapentin [Neurontin] 600 mg tablet 600 mg PO DAILY cefdinir 300 mg capsule 600 mg PO DAILY Qty: 30 0RF doxycycline monohydrate 100 mg capsule 100 mg PO BID Qty: 30 0RF Print Language: Croatian Instructions: Leg Pain (ED) Additional Instructions: Return to the ER for worsening symptoms. Referrals: Caden Mendez MD [Primary Care Provider] - 1 week Discharge Date/Time: 10/05/24 20:57
[2024-10-05 18:42] VITALS: BP 153/104; PULSE 93; TEMP 36.4; O2SAT 97
[2024-10-05] MEDS: MORPHINE SULFATE 4 MG/ML VIAL IV (18:51)
[2024-10-05] MEDS: ONDANSETRON PF 4 MG/2 ML VIAL IV (18:51)
[2024-10-05 19:39] VITALS: O2SAT 95
[2024-10-05 19:40] VITALS: BP 134/81; O2SAT 94
[2024-10-05] MEDS: HYDROMORPHONE HCL 0.5 MG/0.5 ML SYRINGE IV (19:50)
[2024-10-05 20:00] VITALS: BP 128/77; O2SAT 93
[2024-10-05 20:56] VITALS: O2SAT 95
== END 2024-10-05 20:57 | disposition home or self-care (01) ==
PROVIDERS: Emergency Provider Emergency Medicine; PCP Family Medicine
DX: M79.604 Pain in right leg (principal); S82.401D Unspecified fracture of shaft of right fibula, subsequent encounter for closed fracture with routine healing; S82.201D Unspecified fracture of shaft of right tibia, subsequent encounter for closed fracture with routine healing; Z98.890 Other specified postprocedural states
CPT/HCPCS: 36415; 80053; 85025; 93971; 96374; 96375; 99285; J1171; J2270; J2405

== ENCOUNTER 2024-10-07 15:13 | Emergency (ER) | payer MEDICAID, SELFPAY ==
[2024-10-07 15:17] VITALS: BP 120/74; PULSE 95; TEMP 36.8; O2SAT 95; BMI 38.5
--- NOTE | 2024-10-07 15:30 | US_ITS ---
The [address] [address] Patient Name: MATTY WADE MRN: [id number] date: 1970 Sex: M Assigned Patient Location: ER Current Patient Location: ER Accession/Order Number: [id number] Exam Date: 10/07/2024 15:34 Report Date: 10/07/2024 16:42 At the request of: DWIGHT GARRETT Procedure: US venous doppler LE RT EXAM: US venous doppler LE RT HISTORY: DVT edema/erythema. Clinical suspicion of DVT. COMPARISON: 10/05/2024. TECHNIQUE: Evaluation right leg veins groin to proximal calf including deep veins saphenous vein at the groin with grayscale, color Doppler, spectral Doppler and compression evaluation. FINDINGS: Deep veins are well visualized from the groin to the proximal calf. Veins demonstrate normal color flow without thrombus or occlusion. Normal compressibility and augmentation. Saphenous vein at the groin is patent. No abnormal fluid collection. US/US venous doppler LE RT IMPRESSION: Negative study without DVT. No change. Electronically authenticated by: CARIE SAAB Date: 10/07/2024 16:42
--- NOTE | 2024-10-07 15:30 | ED.GENADUL1 ---
HPI HPI - General Adult General Chief complaint: Extremity Problem, Nontraumatic Stated complaint: edema Time Seen by Provider: 10/07/24 15:26 Source: patient Mode of arrival: Wheelchair Limitations: no limitations History of Present Illness HPI narrative: Patient is a 54-year-old male well-known to this emergency department who presents to the ER for redness, increased pain and swelling to the right lower extremity that he noticed this afternoon. He was admitted to this emergency department for left lower extremity cellulitis several weeks ago, after his discharge he had a mechanical fall at home and was found to have a right tib-fib fracture. He was transferred to tertiary care and had surgery on 09/24/2024. There has been no drainage from the surgical sites. No medications taken prior to arrival. He has not had any fevers or vomiting. No new injuries. Patient reports most of his pain in the posterior right calf distally. There are areas of healing ecchymosis to the right lateral calf that he states he has had since surgery that are not new or different today. Related Data Home Medications ?Medication ?Instructions ?Recorded ?Confirmed carvedilol 25 mg tablet 25 mg PO BID 06/14/23 09/23/24 doxazosin 8 mg tablet 8 mg PO DAILY 06/14/23 09/23/24 furosemide 20 mg tablet 20 mg PO DAILY 06/14/23 09/23/24 gabapentin 600 mg tablet 1,200 mg PO .QHS 06/14/23 09/23/24 glycopyrrolate 1 mg tablet 1 mg PO BID 06/14/23 09/23/24 hydroxyzine pamoate 25 mg capsule 25 mg PO QPM 06/14/23 09/23/24 pantoprazole 40 mg tablet,delayed 40 mg PO DAILY 06/14/23 09/23/24 release simvastatin 20 mg tablet 20 mg PO .qhs 06/14/23 09/23/24 modafinil 200 mg tablet 200 mg PO BID 09/04/23 09/23/24 potassium chloride 10 mEq 10 meq PO Q12H 09/04/23 09/23/24 tablet,extended release amantadine HCl 100 mg tablet 100 mg PO BID 12/28/23 09/23/24 cholecalciferol (vitamin D3) 125 5,000 unit PO DAILY 12/28/23 09/23/24 mcg (5,000 unit) capsule melatonin 10 mg capsule 10 mg PO .qhs 12/28/23 09/20/24 multivitamin (Daily Multi-Vitamin 1 tab PO DAILY 12/28/23 09/23/24 tablet) biotin 10 mg tablet 10 mg PO DAILY 09/19/24 09/23/24 citalopram 40 mg tablet 40 mg PO DAILY 09/20/24 09/23/24 gabapentin 600 mg tablet 600 mg PO DAILY 09/20/24 09/23/24 (Neurontin) testosterone cypionate 200 mg/mL 300 mg IM Q14D 09/20/24 09/23/24 intramuscular oil tizanidine 4 mg tablet 4 mg PO .qhs 09/20/24 09/23/24 Previous Rx's ?Medication ?Instructions ?Recorded aspirin 81 mg tablet,delayed 81 mg PO BID 30 days #60 tabs 01/03/24 release (Adult Low Dose Aspirin) cefdinir 300 mg capsule 600 mg (2 x 300 mg) PO DAILY #30 09/22/24 caps doxycycline monohydrate 100 mg 100 mg PO BID #30 caps 09/22/24 capsule oxycodone 5 mg tablet 5 mg PO Q8H PRN pain 5 days #15 10/05/24 tabs Allergies Allergy/AdvReac Type Severity Reaction Status Date / Time No Known Drug Allergies Allergy Verified 10/07/24 15:23 Opioid HPI Opioid Management Most Recent Opioid Data: Last Pain Scale 8 10/05/24 19:40 10/05/24 Last ED Pain Assessment 10/07/24 19:12 Last ORT Total Score 6 09/19/24 22:17 09/19/24 Last ORT Risk Category Moderate Risk 09/19/24 22:17 09/19/24 Review of Systems ROS Constitutional Denies: fever or chills Ears, nose, mouth, and throat Denies: throat pain or nasal congestion Respiratory Denies: shortness of breath Gastrointestinal Denies: nausea or vomiting Musculoskeletal Reports: extremity pain and extremity swelling; Denies: back pain or neck pain Integumentary/Breast Reports: redness, skin pain, skin tenderness and skin swelling; Denies: rash Neurological Denies: numbness in extremities or weakness in extremities Hematologic/Lymphatic Denies: easy bruising or easy bleeding [facility] Medical History Prolonged emergence from general anesthesia ?T88.59XA - Other complications of anesthesia, initial encounter (ICD-10) Pain management contract signed ?Z02.89 - Encounter for other administrative examinations (ICD-10) Back pain ?M54.9 - Dorsalgia, unspecified (ICD-10) PTSD (post-traumatic stress disorder) ?F43.10 - Post-traumatic stress disorder, unspecified (ICD-10) Depression ?F32.A - Depression, unspecified (ICD-10) Dysphagia ?R13.10 - Dysphagia, unspecified (ICD-10) Uvulitis ?K12.2 - Cellulitis and abscess of mouth (ICD-10) Insomnia ?G47.00 - Insomnia, unspecified (ICD-10) Migraine ?G43.909 - Migraine, unspecified, not intractable, without status migrainosus (ICD-10) GERD (gastroesophageal reflux disease) ?K21.9 - Gastro-esophageal reflux disease without esophagitis (ICD-10) Dyspnea on exertion ?R06.09 - Other forms of dyspnea (ICD-10) Heart valve disorder ?I38 - Endocarditis, valve unspecified (ICD-10) Hypoglycemia ?E16.2 - Hypoglycemia, unspecified (ICD-10) Delayed recovery from anesthesia Chronic foot ulcer ?L97.509 - Non-pressure chronic ulcer of other part of unspecified foot with unspecified severity (ICD-10) 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 - Central serous chorioretinopathy, unspecified eye (ICD-10) Chronic pain ?G89.29 - Other chronic pain (ICD-10) Narcolepsy ?G47.419 - 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) Anxiety ?F41.9 - Anxiety disorder, unspecified (ICD-10) Upper back pain ?M54.9 - Dorsalgia, unspecified (ICD-10) Low back pain ?M54.50 - Low back pain, unspecified (ICD-10) TMJ (dislocation of temporomandibular joint) ?S03.00XA - Dislocation of jaw, unspecified side, initial encounter (ICD-10) Obesity ?E66.9 - Obesity, unspecified (ICD-10) Sleep apnea ?G47.30 - Sleep apnea, unspecified (ICD-10) Hypertension ?I10 - Essential (primary) hypertension (ICD-10) Surgical History H/O foot surgery ?Z98.890 - Other specified postprocedural states (ICD-10) H/O radiofrequency ablation (RFA) of nerve of lumbar spine ?Z98.890 - Other specified postprocedural states (ICD-10) History of fusion of cervical spine ?Z98.1 - Arthrodesis status (ICD-10) H/O inguinal hernia repair ?Z98.890 - Other specified postprocedural states (ICD-10) ?Z87.19 - Personal history of other diseases of the digestive system (ICD-10) H/O repair of rotator cuff ?Z98.890 - Other specified postprocedural states (ICD-10) History of uvulopalatopharyngoplasty ?Z98.890 - Other specified postprocedural states (ICD-10) Family History Other Family history of diabetes mellitus Family history of hypertension Family history of myocardial infarction Family history of stroke Social History Within the past year, how often did you have a drink containing alcohol: monthly or less Smoking status: Never smoker Non-prescribed substance use: cannabis (any form) Previous occupational history: unemployed Highest level of school completed/degree received: some college, no degree Are you now , , , , never or living with a partner: Little interest or pleasure in doing things: not at all Feeling down, depressed, or hopeless: not at all Feel stressed/tense/nervous/anxious/difficulty sleeping: not at all Do you think of yourself as: don't know Gender Identity: male Exam Narrative Exam Narrative: Gen.: Awake, alert, in no distress Head: Normocephalic, atraumatic ENT: Moist mucous membranes Respiratory: No respiratory distress Extremities: Right lower extremity with multiple healing surgical incisions, sutures in place with no dehiscence or drainage. Diffuse ecchymosis in various stages of healing to the right lower extremity. Right calf is edematous, tight and painful posteriorly/distally. Patient is able to flex and extend the toes of the right foot. Psych: Normal mood and affect Neuro: No focal neuro deficit Skin: Warm, dry, intact Constitutional Vital Signs, click to edit/add: Last Vital Signs Temp 98.2 F 10/07/24 18:15 Pulse 89 10/07/24 18:16 Resp 18 10/07/24 18:16 BP 113/46 L 10/07/24 18:16 Pulse Ox 94 L 10/07/24 18:16 O2 Del Method Room Air 10/07/24 15:17 Course Vital Signs Vital signs: Vital Signs Temperature 98.2 F 10/07/24 15:17 Pulse Rate 95 H 10/07/24 15:17 Respiratory Rate 20 10/07/24 15:17 Blood Pressure 120/74 10/07/24 15:17 Pulse Oximetry 95 10/07/24 15:17 Oxygen Delivery Method Room Air 10/07/24 15:17 Temperature 98.2 F 10/07/24 18:15 Pulse Rate 89 10/07/24 18:16 Respiratory Rate 18 10/07/24 18:16 Blood Pressure 113/46 L 10/07/24 18:16 Pulse Oximetry 94 L 10/07/24 18:16 Oxygen Delivery Method Room Air 10/07/24 15:17 Medical Decision Making MDM Narrative Medical decision making narrative: Patient is an extremely poor historian, however he is hemodynamically stable in the ER. He does not know the name of his surgeon at [facility]. Documentation shows that the patient was accepted by Dr. Dwyer for orthopedics. Documentation also shows that the patient was seen in this emergency department 2 days ago for increasing swelling, pain and redness to the right lower extremity and was discharged home to finish his antibiotics. He apparently was prescribed cefdinir and doxycycline on 09/22 to be taken for 15 days, scheduled to be ended today. 1718: Laboratory studies reviewed and noted, CRP and sed rates are elevated, however white blood cell count and lactic acid are normal. Ultrasound with no evidence of DVT. Patient reevaluated by attending physician. We are awaiting a phone call from [facility] orthopedics. Concern for cellulitis at this time that is worsening. Patient is a poorly compliant, he missed his outpatient follow-up appointment and has been walking on his right leg. Zosyn and vancomycin ordered for antibiotic coverage in the ER. 1827: Case was discussed with Dr. Ferrell for orthopedics who recommended transferring the patient to [facility] emergency department. He was accepted by the emergency department physician. On reevaluation by myself and attending physician, the patient states he does not want to go to [place]. He has an appointment with his primary care provider this week. He was instructed that he can either sign out AGAINST MEDICAL ADVICE after receiving IV Zosyn and vancomycin or he can be transferred to [facility] to be evaluated by orthopedics. He was made aware as he continues to bounce back to the emergency department multiple times since his surgery, that he should have orthopedic evaluation. At this time the patient and his are contemplating if he will go through with the transfer or not. 191: Patient is agreeable to transfer at this time. Transport is pending to take him to [facility]. This patient was evaluated by myself and Dr. Richey multiple times. Critical care time 35 minutes. SHARED APC VISIT, PHYSICIAN ATTESTATION: [id number] I performed a substantive part of the MDM during the patient?s E/M visit. I personally evaluated and examined the patient. I personally made or approved the documented management plan and acknowledge its risk of complications. Medical Records Medical records reviewed: Yes I reviewed the patient's medical records Lab Data Lab results reviewed: Yes I reviewed the patient's lab results Labs: Lab Results 10/07/24 Range/Units 15:40 WBC 8.8 (4.0-11.0) 10^3/uL RBC 4.74 (4.70-6.10) 10^6/uL Hgb 12.7 L (14.0-18.0) g/dL Hct 41.7 L (42.0-54.0) % MCV 88.0 (80.0-94.0) fL MCH 26.8 (25.9-34.0) pg MCHC 30.5 (29.9-35.2) g/dL RDW 15.7 H (11.0-15.0) % Plt Count 251 (150-450) 10^3/uL MPV 9.1 L (9.5-13.5) fL Neut % (Auto) 80.6 H (43.0-75.0) % Lymph % (Auto) 8.9 L (20.5-60.0) % Martin % (Auto) 6.6 (1.7-12.0) % Eos % (Auto) 1.7 (0.9-7.0) % Baso % (Auto) 0.8 (0.2-2.0) % Neut # (Auto) 7.1 H (1.4-6.5) 10^3/uL Lymph # (Auto) 0.8 L (1.2-3.8) 10^3/uL Martin # (Auto) 0.6 (0.3-0.8) 10^3/uL Eos # (Auto) 0.2 (0.0-0.7) 10^3/uL Baso # (Auto) 0.1 (0.0-0.1) 10^3/uL Abs Immat Gran (auto) 0.12 H (0.00-0.03) 10^3/uL Imm/Tot Granulo (auto) 1.4 H (0.0-0.5) % ESR 69 H (<=20) mm/hr VBG pH 7.444 H (7.330-7.430) VBG pCO2 51.7 (40.0-52.0) mmHg Sodium 140 (136-145) mmol/L Potassium 3.9 (3.5-5.1) mmol/L Chloride 100 (98-107) mmol/L Carbon Dioxide 35.2 H (21.0-32.0) mmol/L Anion Gap 8.7 BUN 12.0 (7.0-18.0) mg/dL Creatinine 1.29 (0.70-1.30) mg/dL Est GFR ( Amer) >60 (>=60 mL/min/1.73m^2) Est GFR (Non-Af Amer) 58 L (>=60 mL/min/1.73m^2) BUN/Creatinine Ratio 9.3 Glucose 98 (74-106) mg/dL Lactate 2.0 (0.4-2.0) mmol/L Calcium 9.7 (8.5-10.1) mg/dL Total Bilirubin 0.6 (0.2-1.0) mg/dL AST 19 (15-37) U/L ALT 23 (16-63) U/L Alkaline Phosphatase 151 H (46-116) U/L C-Reactive Protein 2.61 H (<=0.50) mg/dL Total Protein 7.6 (6.4-8.2) g/dL Albumin 3.3 L (3.4-5.0) g/dL Globulin 4.3 g/dL Albumin/Globulin Ratio 0.8 Imaging Data Venous US: Attestation: I have reviewed the pertinent imaging results. Radiologist's impression: ITS Impressions Venous Doppler Study 10/07/24 15:30 IMPRESSION: Negative study without DVT. No change. Electronically authenticated by: CARIE SAAB Date: 10/07/2024 16:42 Critical Care Time Critical Care Time Critical Care Time: Yes Total Critical Care Time: 35 Attestation: 35 min of critical care time assessed for multiple evaluations, discussions with patient and family and transfer to tertiary care Discharge Plan Discharge Chief Complaint: Extremity Problem, Nontraumatic Clinical Impression: Pain in right leg, Cellulitis of right leg, Post-operative infection Patient Disposition: [facility] Time of Disposition Decision: 19:19 Discharge Location: [facility] Condition: Good Mode of Transportation: EMS Prescriptions / Home Meds: No Action potassium chloride 10 mEq tablet extended release 10 meq PO Q12H modafinil 200 mg tablet 200 mg PO BID Patient Comments: am and noon oxycodone 5 mg tablet 5 mg PO Q8H PRN (Reason: pain) 5 Days Qty: 15 0RF gabapentin 600 mg tablet 1,200 mg PO .QHS Rx Instructions: 600 MG QAM AND 1200 MG QHS carvedilol 25 mg tablet 25 mg PO BID Rx Instructions: must administer with a meal/food doxazosin 8 mg tablet 8 mg PO DAILY simvastatin 20 mg tablet 20 mg PO .qhs pantoprazole 40 mg tablet,delayed release (DR/EC) 40 mg PO DAILY glycopyrrolate 1 mg tablet 1 mg PO BID furosemide 20 mg tablet 20 mg PO DAILY hydroxyzine pamoate 25 mg capsule 25 mg PO QPM cholecalciferol (vitamin D3) 125 mcg (5,000 unit) capsule 5,000 unit PO DAILY multivitamin [Daily Multi-Vitamin] Tablet 1 tab PO DAILY melatonin 10 mg capsule 10 mg PO .qhs amantadine HCl 100 mg tablet 100 mg PO BID aspirin [Adult Low Dose Aspirin] 81 mg tablet,delayed release (DR/EC) 81 mg PO BID 30 Days Qty: 60 0RF biotin 10 mg tablet 10 mg PO DAILY citalopram 40 mg tablet 40 mg PO DAILY tizanidine 4 mg tablet 4 mg PO .qhs testosterone cypionate 200 mg/mL oil 300 mg IM Q14D gabapentin [Neurontin] 600 mg tablet 600 mg PO DAILY cefdinir 300 mg capsule 600 mg PO DAILY Qty: 30 0RF doxycycline monohydrate 100 mg capsule 100 mg PO BID Qty: 30 0RF Print Language: Nigerien Referrals: Caden Mendez MD [Primary Care Provider] - 1 week
--- OUTSIDE RECORDS SUMMARY | 2024-10-07 15:36 | XMS_ITS | CCD ---
Author Organization [facility] CliniSymt Care Team Providers Care Gm Name Role Phone UNKNOWN, PROVIDER Admitting Unavailable UNKNOWN, PROVIDER Attending Unavailable VENUS JAEGER Referring Unavailable VENUS JAEGER Primary Care Unavailable AL Procedure Practitioner Unavailab le UNKNOWN, PROVIDER Surgeon Unavailable AL Procedure Practitioner Unavailab le SANDRA BILL Surgeon Unavailable UNKNOWN, PROVIDER Admitting Unavailable UNKNOWN, PROVIDER Attending Unavailable VENUS JAEGER Referring Unavailable VENUS JAEGER Primary Care Unavailable AL Procedure Practitioner Unavailab le UNKNOWN, PROVIDER Surgeon Unavailable Venus Jaeger Primary Care Physician [phone] DONOVAN Admitting Unavailable HOY ., DR DONOVAN Attending Unavailable HOY ., DR DONOVAN Primary Care Unavailable HOY ., DR DONOVAN Consulting Unavailable HOY ., DR DONOVAN Admitting Unavailable HOY ., DR DONOVAN Attending Unavailable HOY ., DR DONOVAN Primary Care Unavailable HOY ., DR DONOVAN Consulting Unavailable HOY ., DR DONOAVN Admitting Unavailable HOY ., DR DONOVAN Attending [...] MANUEL Consulting Unavailable MAYRA BERNAL Consulting Unavailable Christianneitis , Andisai Berkowitz Attending Unavailable Giedraitis , Andrius Woo Attending Unavailable Giedraitis , Andrius Woo Attending Unavailable Giedraitis , Andrius Woo Attending Unavailable Giedraitis , Andrius Berkowitz Attending Unavailable Highlander, DPJose Eduardo Smith Attending Provider Venus Jaeger MD Primary Care Provider [phone] RUBÉN GEIGER Attending Unavailable GEIGERRUBÉN FRANK Attending Unavailable APLING, VALENCIA Pate Attending Unavailable APLING, VALENCIA B Referring Unavailable GEIGERRUBÉN Attending Unavailable GEIGERRUBÉN FRANK Attending Unavailable Highlander DPM, Trey Smith Attending Provider Trey Vallejo Admitting Unavailable Highlander, Trey Smith Attending Unavailable Highlander, Trey Smith Attending Unavailable Highlander, Trey Smith Admitting Unavailable SUYAPA, SHIN Referring Unavailable SUYAPA, SHIN Referring Unavailable SELMA, SANDRINE Referring Unavailable SUYAPA, SHIN Referring Unavailable SUYAPA, SHIN Referring Unavailable AMEGEE, TONIO Referring Unavailable SUAREZ, MARIANNA Referring Unavailable SELMA, SANDRINE Referring Unavailable AMEGEE, TONIO Referring Unavailable SELMA, SANDRINE Referring Unavailable SUYAPA, SHIN Referring Unavailable HINDERS, MARILOU Referring Unavailable KATKOSERA Referring Unavailable HERNANDEZ, LICO Admitting Unavailable HERNANDEZ, LICO Attending Unavailable AMEGEE, TONIO Referring Unavailable SUYAPA, SHIN Referring Unavailable Allergies Allergy Classification Reported Allergen(s) Allergy Type Date of Onset Reaction(s) Facility (1 source) Aspartame Drug Allergy 08-17-20 [facility] Repository (1 source) avoid; Translations: [Unknown] Propensity to adverse reactions (disorder) 08-17-20 [facility] Repository (1 source) vitamin B12; Translations: [cyanocobalamin] Drug Allergy Unknown (qualifier value) [facility] (1 source) Acetaminophen / HYDROcodone Drug Allergy [facility] Repository (1 source) Corticosteroids Drug allergy (disorder) [facility] (1 source) fentaNYL Drug Allergy [facility] Repository (1 source) Misc-Food; Translations: [Misc-Food] Food allergy (disorder) [facility] (6 sources) fentaNYL Drug Allergy 07-08-20 21 Unknown [facility] (6 sources) HYDROcodone Drug Allergy 07-08-20 21 Unknown [facility] (6 sources) Morphine And Codeine Drug Allergy 07-08-20 Unknown [facility] (6 sources) Other Propensity to adverse reactions 07-08-20 [facility] (1 source) Corticosteroids Drug allergy (disorder) 05-14-20 [facility] Repository Medications Current Medications Medication Drug Class(es) Dates Sig (Normalized) Sig (Original) acetaminophen 325 mg / HYDROcodone bitartrate 5 mg oral tablet (6 sources) Opioid Agonist Start: 03-20-2024 HYDROcodone-acet aminophen (Peck) 5-325 MG tablet 03/20/2024 Active amantadine hydrochloride 100 mg oral tablet (6 sources) Influenza A M2 Protein Inhibitor Start: 04-10-2024 End: 04-10-2025 take 1 tablet by mouth in the morning amantadine (Symmetrel) 100 MG tablet Indications: Excessive daytime sleepiness , Primary insomnia Take 1 tablet (100 mg) by mouth in the morning and at noon 180 tablet 3 04/10/2024 04/10/2025 Active aspirin 81 mg delayed release oral tablet (8 sources) Platelet Aggregation Inhibitor, Nonsteroidal Anti-inflammatory Drug Start: 05-14-2018 take 1 tablet by mouth once daily Aspirin 81 mg Tablet,Delayed Release (Dr/Ec) Active 81 MG PO Daily May 13, 2018 11:00pm ASPIRIN 81 MG ch ewable tablet Chew 81 mg in the morning. Active B-D 3CC LUER-SAYRA SYR 23GX1 23G X 1 3 ML misc (6 sources) Start: 05-18-2023 B-D 3CC LUER-L OK SYR 23GX1 23G X 1 3 ML misc USE 1 SYRINGE INTRAMUSCULARLY ONCE A WEEK 05/18/2023 Active Biotin (9 sources) Start: 02-26-2022 BIOTIN BIOTIN Start Date: 02/26/22 Status: Ordered Start: 05-14-2018 take 1 tablet by mouth once da rodney Biotin 10 mg Tablet Active 10 MG PO Daily May 13, 2018 11:00pm carvedilol 25 mg oral tablet (9 sources) alpha-Adrenergic Jorge L, beta-Adrenergic Jorge L Start: 02-26-2022 carvedilol 25 mg Tab Refills(s) 0 Start Date: 02/26/22 Status: Ordered Start: 05-14-2018 take 1 tablet by [facility] twice daily Carvedilol 12.5 mg Tablet Active 12.5 MG PO Twice daily May 13, 2018 11:00pm celecoxib 100 mg oral capsule (6 sources) Nonsteroidal Anti-inflammatory Drug CeleBREX 100 MG capsule 1 (one) time each day at the same time Active cholecalciferol 0.125 mg oral capsule (6 sources) Vitamin D Start: 2023 cholecalciferol (Vitamin D-3) 125 MCG (5000 UT) capsule 03/15/2024 Active citalopram 20 mg oral tablet (6 sources) Serotonin Reuptake Inhibitor Start: 2022 CeleXA 20 MG tablet 1 (one) time each day at the same time. 06/02/2023 Active clonazePAM 1 mg oral tablet (10 sources) Benzodiazepine Start: 2023 End: 2024 take 1 tablet by mouth at bedtime clonazePAM (KlonoPIN) 1 MG tablet Indications: Primary insomnia Take 1 tablet (1 mg) by mouth at bedtime 30 tablet 2 07/04/2024 Active Start: 02-26-2022 ClonazePAM 0.5 mg Tab Refills(s) 0 Start Date: 02/26/22 Status: Ordered Start: 05-14-2018 take 2 tablets by [facility] at bedtime Clonazepam 0.5 mg Tablet Active 0.05 mg/kg PO Bedtime May 13, 2018 11:00pm Start: 05-14-2018 take 1 mg by mouth at bedtime Clonazepam Active 0.05 mg/kg PO Bedtime May 14, 2018 12:00am diazePAM 5 mg oral tablet (2 sources) Benzodiazepine Start: 05-14-2018 take 1 tablet by mouth at bedtime Diazepam 5 mg Tablet Active 5 MG PO Bedtime May 13, 2018 11:00pm diclofenac sodium 75 mg delayed release oral tablet (2 sources) Nonsteroidal Anti-inflammatory Drug Start: 05-14-2018 take 1 tablet by mouth twice daily Diclofenac Sodium 75 mg Tablet,Delayed Release (Dr/Ec) Active 75 MG PO Twice daily May 13, 2018 11:00pm doxazosin 8 mg oral tablet (7 sources) alpha-Adrenergic Jorge L Start: 02-26-2022 doxazosin 8 mg oral tablet Refills(s) 0 Start Date: 02/26/22 Status: Ordered doxepin hydrochloride 10 mg oral capsule (8 sources) Tricyclic Antidepressant Start: 02-26-2022 doxepin 10 mg Cap Refills(s) 0 Start Date: 02/26/22 Status: Ordered DULoxetine 60 mg delayed release oral capsule (6 sources) Serotonin and Norepinephrine Reuptake Inhibitor take 1 capsule by mouth in the morning DULoxetine (Cymbalta) [address] capsule Take 60 mg by mouth in the morning and 60 mg in the evening. Active escitalopram 20 mg oral tablet (6 sources) Serotonin Reuptake Inhibitor take 1 tablet by mouth in the morning escitalopram (Lexapro) 20 MG tablet Take 20 mg by mouth in the morning. Active furosemide 20 mg oral tablet (6 sources) Loop Diuretic take 1 tablet by mouth in the morning furosemide (Lasix) 20 MG tablet Take 20 mg by mouth in the morning. Active gabapentin 600 mg oral tablet (9 sources) Anti-epileptic Agent Start: 05-14-2018 take 1 tablet by mouth three times daily Gabapentin 600 mg Tablet Active 600 MG PO Three times daily May 13, 2018 11:00pm glycopyrrolate 1 mg oral tablet (7 sources) Start: 01-22-2023 take 1 tablet by mouth in the morning glycopyrrolate (Robinul) 1 MG tablet Take 1 mg by mouth in the morning and 1 mg before bedtime. 01/22/2023 Active Start: 02-26-2022 glycopyrrolate 1 mg oral tablet Refills(s) 0 Start Date: 02/26/22 Status: Ordered hydrOXYzine pamoate 25 mg oral capsule (6 sources) Antihistamine Start: 05-11-2024 take 1 capsule by mouth once daily at bedtime hydrOXYzine pamoate (Vistaril) 25 MG capsule Indications: Primary insomnia TAKE ONE CAPSULE BY MOUTH ONCE DAILY AT BEDTIME 30 capsule 11 05/11/2024 Active lisinopril 10 mg oral tablet (2 sources) Angiotensin Converting Enzyme Inhibitor Start: 05-14-2018 take 1 tablet by mouth once daily Lisinopril 10 mg Tablet Active 10 MG PO Daily May 13, 2018 11:00pm meclizine hydrochloride 25 mg chewable tablet (6 sources) Antiemetic Meclizine HCl 25 MG chewable tablet Chew 25 mg 1 (one) time each day at the same time. Active melatonin 10 mg oral capsule (8 sources) Start: 07-14-2023 End: 07-04-2025 take 1 capsule by mouth at bedtime Melatonin 10 MG capsule Indications: Primary insomnia Take 10 mg by mouth at bedtime 90 capsule 3 07/04/2024 07/04/2025 Active Multiple Vitamins-Minerals (Multi For Him 50+) tablet (6 sources) Multiple Vitamins-Minerals (Multi For Him 50+) tablet as directed Orally Active omeprazole 40 mg delayed release oral capsule (2 sources) Proton Pump Inhibitor Start: 05-14-2018 take 1 capsule by mouth twice daily Omeprazole 40 mg Capsule,Delayed Release(Dr/Ec) Active 40 MG PO Twice daily May 13, 2018 11:00pm ondansetron 4 mg disintegrating oral tablet (14 sources) Serotonin-3 Receptor Antagonist Start: 03-15-2024 ondansetron ODT (Zofran-ODT) 4 MG disintegrating tablet 03/15/2024 Active Start: 05-14-2018 Ondansetron 4 mg Tablet,Disintegrating Active 4 MG PO every 6 to 8 hours as needed for Nausea And Vomiting May 13, 2018 11:00pm ondansetron (Zof ran) 4 MG tablet Take 4 mg by mouth if needed. Active OXcarbazepine 300 mg oral tablet (6 sources) Anti-epileptic Agent take 1 tablet by mouth at bedtime OXcarbazepine (Trileptal) 300 MG tablet Take 300 mg by mouth at bedtime. Active pantoprazole 40 mg delayed release oral tablet (7 sources) Proton Pump Inhibitor Start: [address] Tab Refills(s) 0 Start Date: 02/26/22 Status: Ordered potassium chloride 10 meq extended release oral tablet (6 sources) Start: 023 take 1 tablet by mouth at mealtime potassium chloride CR (Klor-Con) 10 MEQ ER tablet Take 10 mEq by mouth in the morning. Take with food. . 02/22/2023 Active sennosides, jail 8.6 mg oral tablet (6 sources) Start: 07-03-2 024 senna (Senokot) 8.6 MG tablet 03/15/2024 Active simvastatin 20 mg oral tablet (9 sources) HMG-CoA Reductase Inhibitor Start: take 1 tablet by mouth once daily Simvastatin 20 mg Tablet Active 20 MG PO Daily May 13, 2018 11:00pm SUMAtriptan 100 mg oral tablet (8 sources) Serotonin-1b and Serotonin-1d Receptor Agonist Start: Sumatriptan Succinate 100 mg Tablet Active 100 MG PO EVERY 2-4 HOURS as needed for Migraine Headache May 13, 2018 11:00pm take 1 tablet by mouth once ALAINA triptan (Imitrex) 100 MG tablet Take 100 mg by mouth 1 (one) time if needed. Active 1 ml testosterone cypionate 200 mg/ml injection (6 sources) Androgen testosterone cyp ionate (Depo-Testosterone) 200 MG/ML injection Inject 200 mg into the shoulder, thigh, or buttocks every 14 (fourteen) days. Active thiamine 100 mg oral tablet (2 sources) Start: End: take 1 tablet by mouth once daily thiamine (Vitamin B-1) 100 MG tablet Indications: Excessive daytime sleepiness Take 1 tablet (100 mg) by mouth Daily 30 tablet 11 07/05/2024 07/05/2025 Active tiZANidine 4 mg oral capsule (8 sources) Central alpha-2 Adrenergic Agonist Start: take 1 capsule by mouth at bedtime Tizanidine 4 mg Capsule Active 4 MG PO Bedtime May 13, 2018 11:00pm take 1 tablet by mouth at bedtim e tiZANidine (Zanaflex) 4 MG tablet Take 4 mg by mouth at bedtime. Active Vit D3-Folic Getn-S9-G2-B12 (1 source) Start: 05-14-2018 take 1 tablet by mouth once daily Vit D3-Folic Ckgh-[id number]-W8-B12 Active 1 TAB PO Daily May 14, 2018 12:00am Vit D3-Folic Shpo-T5-R9-B12 2,000-800-0.32 unit-mcg-mg Tablet (1 source) Start: 05-14-2018 take 1 tablet by mouth once daily Vit D3-Folic Yxcg-I3-G2-B12 2,000-800-0.32 unit-mcg-mg Tablet Active 1 TAB PO Daily May 13, 2018 11:00pm Completed/Discontinued Medications Medication Drug Class(es) Dates Sig (Normalized) Sig (Original) modafinil 200 mg oral tablet (10 sources) Sympathomimetic-l estevan Agent Start: 04-10-2024 End: 12-31-2024 take 1 tablet by mouth in the morning modafinil (Provigil) 200 MG tablet Indications: Excessive daytime sleepiness , Obstructive sleep apnea Take 1 tablet (200 mg) by mouth in the morning and at noon 180 tablet 07/04/2024 10/02/2024 Discontinued (Reorder) Start: 02-26-2022 modafinil 200 mg Tab Refills(s) 0 Start Date: 02/26/22 Status: Ordered Problems Active Problems Problem Classification Problem Date Documented Date Episodic/Chronic Anxiety disorders (7 sources) Anxiety disorder, unspecified; Translations: [Anxiety disorder] Onset: 6 06-21-2023 Chronic Blindness and vision defects (1 source) Unspecified visual loss; Translations: [UNSPECIFIED VISUAL LOSS] Onset: 2 Chronic Delirium, dementia, and amnestic and other cognitive disorders (6 sources) 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; Translations: [Unspecified mental disorder due to known physiological condition] Onset: 1 06-21-2023 Chronic Diabetes mellitus without complication (13 sources) Type 2 diabetes mellitus without complications; Translations: [Diabetes mellitus without complication] Onset: 8 06-24-2023 Chronic Disorders of lipid metabolism (1 source) Pure hypercholesterolemia, unspecified; Translations: [PURE HYPERCHOLESTEROLEMIA UNSPEC] Onset: 3 Chronic E Codes: Fall (3 sources) Unspecified fall, initial encounter; Translations: [UNSPECIFIED FALL INITIAL ENCOUNTER] Onset: 3 Episodic E Codes: Place of occurrence (2 sources) Unspecified place in unspecified non-institutional (private) residence as the place of occurrence of the external cause; Translations: [Unspecified place in unspecified non-institutional (private) residence as the place of occurrence of the external cause] Onset: 5 Episodic Esophageal disorders (1 source) Gastro-esophageal reflux disease without esophagitis; Translations: [GERD WITHOUT ESOPHAGITIS] Onset: 3 Chronic Essential hypertension (7 sources) Essential (primary) hypertension; Translations: [Hypertensive disorder] Onset: 9 06-21-2023 Chronic Fracture of lower limb (4 sources) Unspecified fracture of shaft of right tibia, initial encounter for closed fracture; Translations: [Unspecified fracture of shaft of right fibula, initial encounter for closed fracture] Onset: 5 Episodic Headache; including migraine (6 sources) Migraine; Translations: [Migraine, unspecified, not intractable, without status migrainosus] Onset: 7 06-21-2023 Chronic Hyperplasia of prostate (1 source) Benign prostatic hypertrophy without outflow obstruction; Translations: [Benign prostatic hyperplasia without lower urinary tract symptoms] Onset: 2 Chronic Miscellaneous mental health disorders (9 sources) Primary insomnia; Translations: [Primary insomnia] Onset: 3 03-11-2023 Chronic Mood disorders (1 source) Major depressive disorder, single episode, unspecified; Translations: [MARITZA DEPRESS D/O SINGLE EPIS UNS] Onset: 2 Chronic Mood disorders (1 source) Mood disorders; Translations: [DEPRESSION UNSPECIFIED] Onset: 3 Osteoarthritis (7 sources) Unspecified osteoarthritis, unspecified site; Translations: [Arthritis of right acromioclavicular joint] Onset: 8 06-21-2023 Chronic Other aftercare (1 source) exterminator (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; Translations: [GRINDER TENDER 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 ASPIRIN] Onset: 3 Episodic Other aftercare (1 source) Other termination clerk (current) drug therapy; Translations: [OTH SHELTER CURRENT DRUG THERAPY] Onset: 3 Episodic Other connective tissue disease (3 sources) Pain in right forearm; Translations: [PAIN IN RIGHT FOREARM] Onset: 3 Episodic Other connective tissue disease (1 source) Arthrodesis status; Translations: [ARTHRODESIS STATUS] Onset: 3 Episodic Other connective tissue disease (2 sources) Muscle weakness of upper limb; Translations: [Other symptoms and signs involving the musculoskeletal system] 08-25-2023 Episodic Comment on above: Problem List clean-u p per request of Phys. EHR Cmte Other diseases of veins and lymphatics (1 [...] Onset: 3 Episodic Other male genital disorders (6 sources) Secondary erectile dysfunction; Translations: [Male erectile [...] Onset: 2 Chronic Other nervous system disorders (6 sources) Carpal tunnel syndrome of right wrist; Translations: [Carpal tunnel syndrome, right upper limb] Onset: 8 06-21-2023 Chronic Other nervous system disorders (8 sources) Lesion of ulnar nerve, right upper limb; Translations: [Lesion of ulnar nerve] Onset: 3 06-21-2023 Chronic Other nervous system disorders (6 sources) Chronic pain; Translations: [Other chronic pain] Onset: 8 06-21-2023 Chronic Other nervous system disorders (6 sources) Ulnar nerve entrapment; Translations: [Lesion of ulnar nerve, unspecified upper limb] Onset: 3 06-21-2023 Chronic Residual codes; unclassified (1 source) Sleep apnea, unspecified; Translations: [SLEEP APNEA UNSPECIFIED] Onset: 3 Chronic Residual codes; unclassified (10 sources) Daytime somnolence; Translations: [Other hypersomnia] Onset: 3 03-11-2023 Chronic Residual codes; unclassified (9 sources) Obstructive sleep apnea syndrome; Translations: [Obstructive sleep apnea (adult) (pediatric)] Onset: 3 06-21-2023 Chronic Residual codes; unclassified (2 sources) Obstructive sleep apnea (adult) (pediatric); Translations: [Obstructive sleep apnea (adult) (pediatric)] Onset: 5 Chronic Spondylosis; intervertebral disc disorders; other back [...] Date Episodic/Chronic Coma; stupor; and brain damage (6 sources) Clouded consciousness; Translations: [Stupor] Onset: 03-03-2012 06-21-2023 Episodic E Codes: Natural/environment (1 source) Exposure to other specified factors, initial encounter; Translations: [EXPOSURE OTHER SPEC FACTORS INITIAL] Onset: 04-27-2022 Episodic Gastritis and duodenitis (6 sources) Gastritis; Translations: [Gastritis, unspecified, without bleeding] Onset: 05-09-2013 06-21-2023 Episodic Heart valve disorders (6 sources) Systolic murmur; Translations: [Cardiac murmur, unspecified] Onset: 06-24-2023 06-24-2023 Episodic Immunizations and screening for infectious disease (1 source) Encounter for immunization; Translations: [ENCOUNTER FOR IMMUNIZATION] Onset: 04-27-2022 Episodic Inflammatory conditions of male genital organs (4 sources) Inflammatory disorders of scrotum; Translations: [INFLAMMATORY DISORDERS OF SCROTUM] Onset: 01-04-2022 Episodic Malaise and fatigue (6 sources) Fatigue; Translations: [Other fatigue] Onset: 03-03-2012 06-21-2023 Episodic Noninfectious gastroenteritis (6 sources) Gastroenteritis; Translations: [Noninfective gastroenteritis and colitis, unspecified] Onset: 04-10-2015 06-21-2023 Episodic Nonspecific chest pain (12 sources) Chest discomfort; Translations: [Other chest pain] Onset: 11-30-2011 06-21-2023 Episodic Open wounds of extremities (4 sources) Puncture wound without foreign body, left foot, initial encounter; Translations: [PUNCT WOUND W/O FB LT FOOT INITIAL] Onset: 03-26-2022 Episodic Other circulatory disease (6 sources) Capillary hemangioma; Translations: [Nevus, non-neoplastic] Onset: 05-28-2008 06-21-2023 Episodic Other connective tissue disease (6 sources) Spasm of cervical paraspinous muscle; Translations: [Other muscle spasm] Onset: 03-11-2023 03-11-2023 Episodic Other connective tissue disease (6 sources) Bursitis; Translations: [Bursopathy, unspecified] Onset: 02-27-2011 06-21-2023 Episodic Other connective tissue disease (6 sources) Foot pain; Translations: [Pain in unspecified foot] Onset: 10-07-2012 06-21-2023 Episodic Other connective tissue disease (6 sources) Muscle pain; Translations: [Myalgia, unspecified site] Onset: 12-02-2012 06-21-2023 Episodic Other connective tissue disease (6 sources) Impingement syndrome of shoulder region; Translations: [Impingement syndrome of unspecified shoulder] Onset: 01-25-2003 06-21-2023 Episodic Other connective tissue disease (6 sources) Lateral epicondylitis; Translations: [Lateral epicondylitis, unspecified elbow] Onset: 06-24-2023 06-24-2023 Episodic Other connective tissue disease (6 sources) Other symptoms and signs involving the musculoskeletal system; Translations: [Other musculoskeletal symptoms referable to limbs] Onset: 12-29-2023 12-29-2023 Episodic Other lower respiratory disease (6 sources) Dyspnea; Translations: [Dyspnea, unspecified] Onset: 11-30-2011 06-21-2023 Episodic Other nervous system disorders (8 sources) Numbness of upper limb; Translations: [Anesthesia of skin] Onset: 12-29-2023 08-25-2023 Episodic Comment on above: Problem List clean-u p per request of Phys. EHR Cmte Other non-traumatic joint disorders (6 sources) Ankle edema; Translations: [Effusion, unspecified ankle] Onset: 05-15-2014 06-21-2023 Episodic Other non-traumatic joint disorders (6 sources) Joint pain; Translations: [Pain in unspecified joint] Onset: 09-03-2009 06-21-2023 Episodic Other screening for suspected conditions (not mental disorders or infectious disease) (18 sources) Encounter for screening for malignant neoplasm of prostate; Translations: [Elevated prostate specific antigen [PSA]] Onset: 03-13-2022 Episodic Other skin disorders (6 sources) Excessive sweating; Translations: [Generalized hyperhidrosis] Onset: 12-18-2015 06-21-2023 Episodic Other skin disorders (6 sources) Senile hyperkeratosis; Translations: [Actinic keratosis] Onset: 03-28-2015 06-21-2023 Episodic Other skin disorders (6 sources) Hyperhidrosis; Translations: [Generalized hyperhidrosis] Onset: 06-24-2023 06-24-2023 Episodic Other upper respiratory infections (6 sources) Upper respiratory infection; Translations: [Acute upper respiratory infection, unspecified] Onset: 12-05-2010 06-21-2023 Episodic Skin and subcutaneous tissue infections (6 sources) Cellulitis; Translations: [Cellulitis, unspecified] Onset: 03-31-2013 06-21-2023 Episodic Spondylosis; intervertebral disc disorders; other back problems (20 sources) Cervical disc prolapse with radiculopathy; Translations: [Cervical disc disorder with radiculopathy, unspecified cervical region] Onset: 10-11-2018 08-25-2023 Episodic Comment on above: Problem List clean-u p per request of Phys. EHR Cmte Urinary tract infections (6 sources) Urinary tract infectious disease; Translations: [Urinary tract infection, site not specified] Onset: 06-28-2014 06-21-2023 Episodic Results Test Name Value Interpretation Reference Range [address] 10-04-2024 36 [facility] call ed and is seeing the patient for wound care, PT, and OT. Seeing patient a couple times a week could specify a number of times. States is also doing dressing changes. [phone] Normal [facility] 36on 09-29-2024 36 Patient in home PT called and wanted to confirm if Dr. Hahn does the in home therapy approvals/orders or if he had to follow up with his PCP, senior copywriter informed her he does. Patient is scheduled for 10/05/24. Normal [facility] BASIC METABOLIC PANELon 09-13 Anion gap [Moles/Vol] 7 mmol/L Normal 7-20 [facility] Comment on above: Performed By: #### L [id number] ####[facility] ([facility])[address] [place] [place] [address] Calcium [Mass/Vol] 9.6 mg/dL Normal 8.6-10.3 [place] [facility] / [facility] Comment on above: Performed By: #### L [id number] ####[facility] (BEAKER)[address] [place] [address] Chloride [Moles/Vol] 98 mmol/L Normal 98-107 [facility] Comment on above: Performed By: #### L [id number] ####[facility] (BEAKER)[address] [place] [address] CO2 [Moles/Vol] 34 mmol/L High 21-31 [facility] Comment on above: Performed By: #### L [id number] ####[facility] (BEAKER)[address] [place] [address] Creatinine [Mass/Vol] 0.92 mg/dL Normal 0.70-1.30 [facility] Comment on above: Performed By: #### L [id number] ####[facility] ([facility])[address] [place] [address] GLOMERULAR FILTRATION RATE ML/MIN/1.73 SQ M.PREDICTED 98.9 mL/min/1.73m*2 Normal >60.[address] [facility] Comment on above: Result Comment: The [facility]???s estimated glomerular filtration rate (eGFR) will no longer include consideration of race in its calculation. The National Kidney Foundation???s eGFR Task Force developed new recommendations for the estimation of the glomerular filtration rate in the [place] They recommend immediate implementation of the new equation refit without the race variable in all laboratories because the calculation does not include race. In addition to not including race in the calculation and reporting, it included diversity in its development, and has acceptable performance characteristics and potential consequences that do not disproportionately affect any one group of individuals. Performed By: #### L [id number] ####[facility] ([facility])[address] [place] [address] Glucose [Mass/Vol] 99 mg/dL Normal 70-100 [facility] Comment on above: Performed By: #### L [id number] ####[facility] [place] [address] Potassium [Moles/Vol] 4.3 mmol/L Normal 3.5-5.1 [facility] Comment on above: Performed By: #### L [id number] ####[facility] ([facility])[address] [place] [address] Sodium [Moles/Vol] 135 mmol/L Low 136-145 [facility] Comment on above: Performed By: #### L [id number] ####[facility] ([facility] [place] [address] Urea nitrogen [Mass/Vol] 20 mg/dL Normal 7-25 [facility] Comment on above: Performed By: #### L [id number] ####[facility] ([facility] [place] [address] UREA NITROGEN/CREATININE (MASS RATIO) IN SER/PLAS 21.7 Normal [facility] Comment on above: Performed By: #### L [id number] ####[facility] (BEAKER)[address] [place] [address] CBCon 09-28-2024 Erythrocyte distribution width (RBC) [Ratio] 15.3 % High 11.5-15.0 [facility] Comment on above: Performed By: #### L [id number] ####[facility] ([facility] [place] [address] ERYTHROCYTE MEAN CORPUSCULAR HEMOGLOBIN CONCENTRATION (G/DL) BY AUTOMATED 30.9 g/dL Low 32.0-35.0 [facility] Comment on above: Performed By: #### L [id number] ####[facility] ([facility])[address] [place] [address] Hematocrit (Bld) [Volume fraction] 44.4 % Normal 39.0-55.0 [facility] Comment on above: Performed By: #### L [id number] ####[facility] ([facility])[address] [place] [address] Hemoglobin (Bld) [Mass/Vol] 13.7 g/dL Normal 13.0-17.0 [facility] Comment on above: Performed By: #### L [id number] ####[facility] ([facility])[address] [place] [address] MCH (RBC) [Entitic mass] 26.5 pg Low 27.0-33.0 [facility] Comment on above: Performed By: #### L [id number] ####[facility] ([facility])[address] [place] [address] MCV (RBC) [Entitic vol] 85.9 fL Normal 82.0-98.0 [facility] Comment on above: Performed By: #### L [id number] ####[facility] ([facility])[address] [place] [address] PLATELETS (10*3/UL) IN BLOOD AUTOMATED COUNT 208 10*3/uL Normal 150-400 [facility] Comment on above: Performed By: #### L [id number] ####[facility] ([facility])[address] [place] [address] RBC (Bld) [#/Vol] 5.17 10*6/uL Normal 4.20-5.70 [facility] Comment on above: Performed By: #### L [id number] ####[facility] (BEAKER)[address] [place] [address] WBC (Bld) [#/Vol] 10.65 10*3/uL High 4.00-10.60 [facility] Comment on above: Performed By: #### L [id number] ####[facility] (BEAKER)[address] [place] [address] CONSULTon 09-28-2024 CONSULT Patient tried CPAP i n the past and was unable to tolerate due to migraines and bleeding sinuses. Started patient on humidified CPAP and patient tolerated well. OP sleep study ordered. Pulmonary Navigator Notes STOP-Bang Questionnaire Do you snore loudly?: Yes Do you often feel tired or fatigued after your sleep?: Yes Has anyone ever observed you stop breathing in your sleep?: Yes Do you have or are you being treated for high blood pressure?: Yes Recent BMI (Calculated): 38.4 Is BMI greater than 35 kg/m2?: 1=Yes Age older than 50 years old?: 1=Yes Is your neck circumference greater than 17 inches (Male) or 16 inches (Female)?: Yes Gender - Male: 1=Yes STOP-Bang Total Score: 8 Interventions Referrals/Orders: Yes, Sleep Time Spent: 20 Normal [facility] DSon 09-28-2024 DS Admission Admitted 09/23/2024 for Fall, syncope Comminuted right tib/fib fracture CHF HTN Hypomagnesemia Enlarged right hilar node Enlarged prostate Discharge Diagnosis Fall, syncope Comminuted right tib/fib fracture CHF HTN Hypomagnesemia Enlarged right hilar node Enlarged prostate Obstructive sleep apnea Morbid obesity Atrial flutter, new onset [place]charge [place] [facility] [place] Discharge Medications Your medication list START taking these medications Instructions Last Dose Given Next Dose Due acetaminophen 500 mg tablet Commonly known as: Tylenol Take 1 tablet (500 mg) by mouth every 6 (six) hours if needed for mild pain (1-3 pain score). calcium 500 mg calcium (1,250 mg) tablet Take 1 tablet (500 mg) by mouth with breakfast, with lunch, and with evening meal. cholecalciferol 50 MCG (2000 UT) tablet Commonly known as: Vitamin D-3 Start taking on: September 29, 2024 Take 1 tablet (50 mcg) by mouth in the morning for 30 doses. methocarbamoL 1,000 mg tablet Take 1,000 mg by mouth if needed in the morning, at noon, and at bedtime for muscle spasms. oxyCODONE 5 mg immediate release tablet Commonly known as: Roxicodone Take 1 tablet (5 mg) by mouth every 6 (six) hours if needed for severe pain (8-10 pain score). sennosides-docusate sodium 8.6-50 mg tablet Commonly known as: Breanna-Colace Take 1 tablet by mouth two times daily. CHANGE how you take these medications Instructions Last Dose Given Next Dose Due aspirin 81 mg EC tablet What changed: You were already taking a medication with the same name, and this prescription was added. Make sure you understand how and when to take each. Take 1 tablet (81 mg) by mouth two times daily for 28 days. aspirin 81 mg EC tablet Start taking on: October 27, 2024 What changed: These instructions start on October 27, 2024. If you are unsure what to do until then, ask your doctor or other care provider. Take 1 tablet (81 mg) by mouth in the morning. Do not start before October 27, 2024. CONTINUE taking these medications Instructions Last Dose Given Next Dose Due amantadine 100 mg capsule Commonly known as: Symmetrel carvedilol 25 mg tablet Commonly known as: Coreg citalopram 20 mg tablet Commonly known as: CeleXA clonazePAM 0.5 mg tablet Commonly known as: KlonoPIN doxazosin 8 mg tablet Commonly known as: Cardura doxepin 10 mg capsule Commonly known as: SINEquan furosemide 20 mg tablet Commonly known as: Lasix gabapentin 600 mg tablet Commonly known as: Neurontin glycopyrrolate 1 mg tablet Commonly known as: Robinul hydrOXYzine pamoate 25 mg capsule Commonly known as: Vistaril meclizine 25 mg tablet Commonly known as: Antivert modafinil 200 mg tablet Commonly known as: Provigil multivitamin tablet ondansetron 4 mg tablet Commonly known as: Zofran pantoprazole 40 mg EC tablet Commonly known as: ProtoNix potassium chloride ER 10 mEq ER capsule Commonly known as: Micro-K sildenafil 25 mg tablet Commonly known as: Viagra simvastatin 20 mg tablet Commonly known as: Zocor SUMAtriptan 100 mg tablet Commonly known as: Imitrex tiZANidine 4 mg capsule Commonly known as: Zanaflex Where to Get Your Medications These medications were sent to [facility] - [place], [place] - [address] [place] [address] [place] [address], [facility] [address] acetaminophen 500 mg tablet aspirin 81 mg EC tablet calcium 500 mg calcium (1,250 mg) tablet cholecalciferol 50 MCG (2000 UT) tablet methocarbamoL 1,000 mg tablet sennosides-docusate sodium 8.6-50 mg tablet You can get these medications from any pharmacy Bring a paper prescription for each of these medications oxyCODONE 5 mg immediate release tablet Information about where to get these medications is not yet available Ask your nurse or doctor about these medications aspirin 81 mg EC tablet Activity Activity as tolerated with assistance. No driving until cleared by ortho. Diet Continue on the same type of diet and foods as you were eating before your admission. Drink plenty of water. Allergies Patient has no known allergies. Hospital Course Matty Garces is a 54 y.o. y/o male who presented as a trauma consult on 09/23/2024 following a syncopal fall at home in which he sustained a commuted right tib/fib fracture. Ortho was consulted and took patient to OR on 09/24/24 for IMN on right tibia. Patient was evaluated by PT/OT who recommended IPR on discharge however patient refused this stating he already has [facility] set up and wants to go home. Vascular surgery was consulted for a chronic left foot ulcer. Pulmonary navigator was consulted for PATEL and recommended OP sleep study. On day of discharge, Trauma team was informed at approximately 1730 per [facility] that patient went into a-flutter and sustained for approximately 2 hours fro (more content not included)... [facility] Letter (Out)on 09-28-2024 Letter (Out) [id number] Francisco Javier Garces 1970 M Date Provider Department Center 09/28/2024 [id number], GENERIC PRO*INIT None No family history on file Normal [facility] MAGNESIUMon 09-28-2024 Magnesium [Mass/Vol] 2.0 mg/dL Normal 1.9-2.7 [facility] Comment on above: Performed By: #### L [id number] ####[facility] (BEAKER)[address] [place] [address] NURSNOTEon 09-28-2024 NURSNOTE PT signed AMA paperwork with trama team. Pt left with belongings and family. AMA paperwork in patient chart. Normal [facility] PHOSPHORUSon 09-28-2024 Magnesium [Mass/Vol] 3.3 mg/dL Normal 2.5-5.0 [facility] Comment on above: Performed By: #### L [id number] ####[facility] (BEAKER)[address] [place] [address] 30on 09-27-2024 30 The patient is Moderately Stable - Low risk of patient condition declining or worsening The patient's goals for the shift include comfort The clinical goals for the shift include VSS, pain control Over the shift, the patient did not make progress toward the following goals. Barriers to progression include unstable VS. Recommendations to address these barriers include continue medications as ordered Normal [facility] 30 Daily Case Managemen t Update Multidisciplinary rounds have been completed. Barriers to Discharge: Pending clinical course; POD3 IMN; 4L NC. Patient refusing CPaP at rest/sleep, Pulm brennen consulted and following. PT/OT recommending IPR, PMR consulted and recommend IPR. Patient and spouse would like to go home with [facility]. Referrals sent, pending accepting [facility] agency>>Radha Mendenhall [facility] accepting. NURY recommended--ariadna mo, bedside commode--scripts written and face to face notes signed.>>need sent to Attributor for fulfillment. SW following. Diet: Dietary Orders (From admission, onward) Start Ordered 09/27/24843 Special Kitchen Request Once Comments: Please add regular coke to tray and bottled water Thank you 09/27/2484309/27/24 0836 Special Kitchen Request Once Comments: Apple, banana, orange, blueberry muffin, butter, white toast, butter,coffee sugar cream, whole milk 09/27/24 0841 09/26/24 1854 Special Kitchen Request Once Comments: Whole apple, whole orange, side salad with ranch, hamburger with side of cheese, lettuce, tomato and onion, garden vegetable plate and mediterranean salad plate 09/26/24 1855 09/26/24 1355 Special Kitchen Request Once Comments: Whole orange, whole apple, mashed potatoes and gravy, roast beef 09/26/24 1355 09/24/24 1240 Regular Diet Diet effective now Question: Room Service? Answer: Yes 09/24/24 1242 Physician Expected Discharge Date: 09/27/2024 Discharge Delays: PT Six Click Score: 14 OT Six Click Score: 19 PT Recommendations: Inpatient rehab facility placement (Pt requesting home discharge and will need equipment listed below for safe mobility as well as home health PT/OT.) OT Recommendations: Inpatient rehab facility placement New Consults: Consult Orders (From admission, onward) Start Ordered 09/23/24 1232 Inpatient consult to Trauma Surgery Once Specialty: Trauma Surgery Provider: (Not yet assigned) Question Answer Comment [employer] TRAUMA SURGERY TEAM Reason for Consult? R tib fib facrture Level of Consultation Production Support Developer assumes full responsibility 09/23/24 1231 09/23/24 1221 Inpatient consult to Cardiology Once Specialty: Cardiology Provider: (Not yet assigned) Question Answer Comment [employer] CARDIOLOGY TEAM Reason for Consult? Breanna-operative risk stratification Level of Consultation Consultation and Management 09/23/24 1221 Ancillary Consults (From admission, onward) Start Ordered 09/25/24 1411 Inpatient Consult to Pulmonary Navigator Once Provider: (Not yet assigned) Question: Reason for consult Answer: Snoring/Possible PATEL 09/25/24 1410 Therapy Orders (From admission, onward) Start Ordered 09/24/24 1240 PT eval and treat Until therapy completed Question: Reason for PT? Answer: Post muscular skeletal surgical procedure 09/24/24 1242 09/24/24 1240 OT eval and treat Until therapy completed Question: Reason for OT? Answer: Post muscular skeletal surgical procedure 09/24/24 1242 Normal [facility] 30 The patient is Moderately Stable - Low risk of patient condition declining or worsening The patient's goals for the shift include Comfort The clinical goals for the shift include VSS Over the shift, the patient did not make progress toward the following goals. Barriers to progression include vss, comfort, safety. Recommendations to address these barriers include monitor VS, medicate for pain as ordered maintain safety precautions. Normal [facility] 30 The patient is Moderately Stable - Low risk of patient condition declining or worsening The patient's goals for the shift include Comfort The clinical goals for the shift include VSS Problem: Pain - Adult Goal: Verbalizes/displays adequate comfort level or baseline comfort level Outcome: Progressing Flowsheets (Taken 09/27/202414) Verbalizes/displays adequate comfort level or baseline comfort level: Encourage patient to monitor pain and request assistance Assess pain using appropriate pain scale Administer analgesics based on type and severity of pain and evaluate response Implement non-pharmacological measures as appropriate and evaluate response Consider cultural and social influences on pain and pain management Problem: Safety - Adult Goal: Free from fall injury Outcome: Progressing Flowsheets (Taken 09/27/202414) Free from fall injury: Assess patient frequently for physical needs Identify cognitive and physical deficits and behaviors that affect risk of falls [place] fall precautions as indicated by assessment Educate patient/family on patient safety, including physical limitations Instruct patient to call for assistance with activity based on assessment Modify environment to reduce risk of injury Normal [facility] BASIC METABOLIC PANELon 09-13 Anion gap [Moles/Vol] 9 mmol/L Normal 7-20 [facility] Comment on above: Performed By: #### L [id number] #### [facility] (BEAKER) [address] [place] [address] Calcium [Mass/Vol] 9.3 mg/dL Normal 8.6-10.3 [facility] Comment on above: Performed By: #### L [id number] #### [facility] (BEAKER) [address] [place] [address] Chloride [Moles/Vol] 99 mmol/L Normal 98-107 [facility] Comment on above: Performed By: #### L [id number] #### [facility] (BEAKER) [address] [place] [address] CO2 [Moles/Vol] 33 mmol/L High 21-31 [facility] Comment on above: Performed By: #### L [id number] #### [facility] ([facility]) [address] [place] [address] Creatinine [Mass/Vol] 0.89 mg/dL Normal 0.70-1.30 [facility] Comment on above: Performed By: #### L [id number] #### [facility] ([facility]) [address] [place] [address] GLOMERULAR FILTRATION RATE ML/MIN/1.73 SQ M.PREDICTED 101.8 mL/min/1.73m*2 Normal >60.0 [facility] Comment on above: Result Comment: The [facility]???s estimated glomerular filtration rate (eGFR) will no longer include consideration of race in its calculation. The National Kidney Foundation???s eGFR Task Force developed new recommendations for the estimation of the glomerular filtration rate in the [place] They recommend immediate implementation of the new equation refit without the race variable in all laboratories because the calculation does not include race. In addition to not including race in the calculation and reporting, it included diversity in its development, and has acceptable performance characteristics and potential consequences that do not disproportionately affect any one group of individuals. Performed By: #### L [id number] #### [facility] ([facility]) [address] [place] [address] Glucose [Mass/Vol] 95 mg/dL Normal 70-100 [facility] Comment on above: Performed By: #### L [id number] #### [facility] ([facility]) [address] [place] [address] Potassium [Moles/Vol] 4.1 mmol/L Normal 3.5-5.1 [facility] Comment on above: Performed By: #### L [id number] #### [facility] ([facility]) [address] [place] [address] Sodium [Moles/Vol] 137 mmol/L Normal 136-145 [facility] Comment on above: Performed By: #### L [id number] #### [facility] ([facility]) [address] [place] [address] Urea nitrogen [Mass/Vol] 17 mg/dL Normal 7-25 [facility] Comment on above: Performed By: #### L [id number] #### [facility] ([facility]) [address] [place] [address] UREA NITROGEN/CREATININE (MASS RATIO) IN SER/PLAS 19.1 Normal [facility] Comment on above: Performed By: #### L [id number] #### [facility] ([facility]) [address] [place] [address] CBCon 09-27-2024 Erythrocyte distribution width (RBC) [Ratio] 15.4 % High 11.5-15.0 [facility] Comment on above: Performed By: #### L [id number] #### [facility] ([facility]) [address] [place] [address] ERYTHROCYTE MEAN CORPUSCULAR HEMOGLOBIN CONCENTRATION (G/DL) BY AUTOMATED 30.8 g/dL Low 32.0-35.0 [facility] Comment on above: Performed By: #### L [id number] #### [facility] ([facility]) [address] [place] [address] Hematocrit (Bld) [Volume fraction] 45.5 % Normal 39.0-55.0 [facility] Comment on above: Performed By: #### L [id number] #### [facility] [address] [place] [address] Hemoglobin (Bld) [Mass/Vol] 14.0 g/dL Normal 13.0-17.0 [facility] Comment on above: Performed By: #### L [id number] #### [facility] [address] [place] [address] MCH (RBC) [Entitic mass] 26.5 pg Low 27.0-33.0 [facility] Comment on above: Performed By: #### L [id number] #### [facility] (BEAKER) [address] [place] [address] MCV (RBC) [Entitic vol] 86.0 fL Normal 82.0-98.0 [facility] Comment on above: Performed By: #### L [id number] #### [facility] ([facility]) [address] [place] [address] PLATELETS (10*3/UL) IN BLOOD AUTOMATED COUNT 199 10*3/uL Normal 150-400 [facility] Comment on above: Performed By: #### L [id number] #### [facility] ([facility]) [address] [place] [address] RBC (Bld) [#/Vol] 5.29 10*6/uL Normal 4.20-5.70 [facility] Comment on above: Performed By: #### L [id number] #### [facility] ([facility]) [address] [place] [address] WBC (Bld) [#/Vol] 10.21 10*3/uL Normal 4.00-10.60 [facility] Comment on above: Performed By: #### L [id number] #### [facility] ([facility]) [address] [place] [address] MAGNESIUMon 09-27-2024 Magnesium [Mass/Vol] 1.9 mg/dL Normal 1.9-2.7 [facility] Comment on above: Performed By: #### L [id number] ####[facility] ([facility])[address] [place] [address] PHOSPHORUSon 09-27-2024 Magnesium [Mass/Vol] 4.4 mg/dL Normal 2.5-5.0 [facility] Comment on above: Performed By: #### L [id number] #### [facility] ([facility]) [address] [place] [place] [address] VENOUS BLOOD GAS WITH IONIZE D CALCIUMon 09-27-2024 Base excess Calc (BldV) [Moles/Vol] 9.2 mmol/L Normal [facility] Comment on above: Performed By: #### L [id number] ####[facility] RESPIRAT[facility] [id number] [place] [address] [facility] CALCIUM IONIZED (MMOL/L) IN BLOOD 1.27 mmol/L Normal 1.15-1.33 [facility] Comment on above: Performed By: #### L [id number] ####[facility] RES[facility] [id number] [place] [address] [facility] CO2 (BldV) [Partial pressure] 50 mm[Hg] Normal 40-50 [facility] Comment on above: Performed By: #### L [id number] ####[facility] RESPIRATORY [id number] [place] [address] [facility] HCO3 (Bld) [Moles/Vol] 34.8 mmol/L Normal [facility] Comment on above: Performed By: #### L [id number] ####[facility] RESPIRATORY [id number] [place] [address] [facility] Oxygen (BldV) [Partial pressure] 53 mm[Hg] High 35-45 [facility] Comment on above: Performed By: #### L [id number] ####[facility] RESPIRATORY [id number] [place] [address] [facility] OXYGEN SATURATION (%) IN VENOUS BLOOD 87.1 % High 65.0-75.[address] [facility] Comment on above: Performed By: #### L [id number] ####[facility] RESPIRATORY [id number] [place] [address] [facility] PH OF VENOUS BLOOD 7.45 High 7.31-7.41 [facility] Comment on above: Performed By: #### L [id number] ####[facility] RESPIRATORY [id number] [place] [address] [facility] BASIC METABOLIC PANELon 09-13 Anion gap [Moles/Vol] 8 mmol/L Normal 7-20 [facility] Comment on above: Performed By: #### L [id number] ####[facility] LAB (BEAKER)[address] [place] [address] Calcium [Mass/Vol] 9.4 mg/dL Normal 8.6-10.3 [facility] Comment on above: Performed By: #### L [id number] ####[facility] LAB (BEAKER)[address] [place] [address] Chloride [Moles/Vol] 99 mmol/L Normal 98-107 [facility] Comment on above: Performed By: #### L [id number] ####[facility] LAB (BEAKER)[address] [place] [address] CO2 [Moles/Vol] 36 mmol/L High 21-31 [facility] Comment on above: Performed By: #### L [id number] ####[facility] [place] [address] Creatinine [Mass/Vol] 0.91 mg/dL Normal 0.70-1.30 [facility] Comment on above: Performed By: #### L [id number] ####[facility] ([facility])[address] [place] [address] GLOMERULAR FILTRATION RATE ML/MIN/1.73 SQ M.PREDICTED 100.2 mL/min/1.73m*2 Normal >60.0 [facility] Comment on above: Result Comment: The [facility]???s estimated glomerular filtration rate (eGFR) will no longer include consideration of race in its calculation. The National Kidney Foundation???s eGFR Task Force developed new recommendations for the estimation of the glomerular filtration rate in the [place] They recommend immediate implementation of the new equation refit without the race variable in all laboratories because the calculation does not include race. In addition to not including race in the calculation and reporting, it included diversity in its development, and has acceptable performance characteristics and potential consequences that do not disproportionately affect any one group of individuals. Performed By: #### L [id number] ####[facility] ([facility] [place] [address] Glucose [Mass/Vol] 85 mg/dL Normal 70-100 [facility] Comment on above: Performed By: #### L [id number] ####[facility] LAB (BEAKER)[address] [place] [address] Potassium [Moles/Vol] 3.8 mmol/L Normal 3.5-5.1 [facility] Comment on above: Performed By: #### L [id number] ####[facility] LAB (BEAKER)[address] [place] [address] Sodium [Moles/Vol] 139 mmol/L Normal 136-145 [facility] Comment on above: Performed By: #### L [id number] ####[facility] LAB (BEAKER)[address] [place] [address] Urea nitrogen [Mass/Vol] 18 mg/dL Normal 7-25 [facility] Comment on above: Performed By: #### L [id number] ####[facility] LAB (BEAKER)[address] [place] [address] UREA NITROGEN/CREATININE (MASS RATIO) IN SER/PLAS 19.8 Normal [facility] Comment on above: Performed By: #### L [id number] ####[facility] LAB (BEAKER)[address] [place] [address] CBCon 09-26-2024 Erythrocyte distribution width (RBC) [Ratio] 15.4 % High 11.5-15.0 [facility] Comment on above: Performed By: #### L [id number] ####[facility] LAB (BEAKER)[address] [place] [address] ERYTHROCYTE MEAN CORPUSCULAR HEMOGLOBIN CONCENTRATION (G/DL) BY AUTOMATED 31.1 g/dL Low 32.0-35.0 [facility] Comment on above: Performed By: #### L [id number] ####[facility] LAB (BEAKER)[address] [place] [address] Hematocrit (Bld) [Volume fraction] 43.8 % Normal 39.0-55.0 [facility] Comment on above: Performed By: #### L [id number] ####[facility] LAB (BEAKER)[address] [place] [address] Hemoglobin (Bld) [Mass/Vol] 13.6 g/dL Normal 13.0-17.0 [facility] Comment on above: Performed By: #### L [id number] ####[facility] LAB (BEAKER)[address] [place] [address] MCH (RBC) [Entitic mass] 26.3 pg Low 27.0-33.0 [facility] Comment on above: Performed By: #### L [id number] ####[facility] LAB ([facility])[address] [place] [address] MCV (RBC) [Entitic vol] 84.7 fL Normal 82.0-98.0 [facility] Comment on above: Performed By: #### L [id number] ####[facility] ([facility])[address] [place] [address] PLATELETS (10*3/UL) IN BLOOD AUTOMATED COUNT 186 10*3/uL Normal 150-400 [facility] Comment on above: Performed By: #### L [id number] ####[facility] ([facility])[address] [place] [address] RBC (Bld) [#/Vol] 5.17 10*6/uL Normal 4.20-5.70 [facility] Comment on above: Performed By: #### L [id number] ####[facility] ([facility])[address] [place] [address] WBC (Bld) [#/Vol] 9.63 10*3/uL Normal 4.00-10.60 [facility] Comment on above: Performed By: #### L [id number] ####[facility] ([facility])[address] [place] [address] MAGNESIUMon 09-26-2024 Magnesium [Mass/Vol] 1.9 mg/dL Normal 1.9-2.7 [facility] Comment on above: Performed By: #### L [id number] #### [facility] ([facility]) [address] [place] [address] PHOSPHORUSon 09-26-2024 Magnesium [Mass/Vol] 2.6 mg/dL Normal 2.5-5.0 [facility] Comment on above: Performed By: #### L [id number] #### [facility] LAB (BEAKER) [address] [place] [address] 30on 09-25-2024 30 Problem: Pain - Adul t Goal: Verbalizes/displays adequate comfort level or baseline comfort level Outcome: Progressing Problem: Safety - Adult Goal: Free from fall injury Outcome: Progressing Problem: Discharge Planning Goal: Discharge to home or other facility with appropriate resources Outcome: Progressing Problem: Chronic Conditions and Co-morbidities Goal: Patient's chronic conditions and co-morbidity symptoms are monitored and maintained or improved Outcome: Progressing Problem: Neurosensory - Adult Goal: Achieves stable or improved neurological status Outcome: Progressing Goal: Absence of seizures Outcome: Progressing Goal: Remains free of injury related to seizures activity Outcome: Progressing Goal: Achieves maximal functionality and self care Outcome: Progressing Problem: Respiratory - Adult Goal: Achieves optimal ventilation and oxygenation Outcome: Progressing Problem: Cardiovascular - Adult Goal: Maintains optimal cardiac output and hemodynamic stability Outcome: Progressing Goal: Absence of cardiac dysrhythmias or at baseline Outcome: Progressing Problem: Skin/Tissue Integrity - Adult Goal: Skin integrity remains intact Outcome: Progressing Goal: Incisions, wounds, or drain sites healing without S/S of infection Outcome: Progressing Goal: Oral mucous membranes remain intact Outcome: Progressing Problem: Musculoskeletal - Adult Goal: Return mobility to safest level of function Outcome: Progressing Goal: Maintain proper alignment of affected body part Outcome: Progressing Goal: Return ADL status to a safe level of function Outcome: Progressing Problem: Gastrointestinal - Adult Goal: Minimal or absence of nausea and vomiting Outcome: Progressing Goal: Maintains or returns to baseline bowel function Outcome: Progressing Goal: Maintains adequate nutritional intake Outcome: Progressing Goal: Establish and maintain optimal ostomy function Outcome: Progressing Problem: Genitourinary - Adult Goal: Absence of urinary retention Outcome: Progressing Goal: Urinary catheter remains patent Outcome: Progressing Problem: Infection - Adult Goal: Absence of infection at discharge Outcome: Progressing Goal: Absence of infection during hospitalization Outcome: Progressing Goal: Absence of fever/infection during anticipated neutropenic period Outcome: Progressing Problem: Metabolic/Fluid and Electrolytes - Adult Goal: Electrolytes maintained within normal limits Outcome: Progressing Goal: Hemodynamic stability and optimal renal function maintained Outcome: Progressing Goal: Glucose maintained within prescribed range Outcome: Progressing Problem: Hematologic - Adult Goal: Maintains hematologic stability Outcome: Progressing The patient is Moderately Stable - Low risk of patient condition declining or worsening The patient's goals for the shift include pain control The clinical goals for the shift include vss,,free of pain Over the shift, the patient did not make progress toward the following goals. Barriers to progression include sleep apnea. Recommendations to address these barriers include consult for respiratory therapy. Normal [facility] 30 Daily Case Managemen t Update Multidisciplinary rounds have been completed. Barriers to Discharge: Pending clinical course; patient requiring 10L salter at this time, pulmonary navigator consulted for possible PATEL. CXR ordered, no acute findings. Patient will require a home O2 evaluation if unable to wean oxygen. PT/OT recommending IPR, PMR consulted and recommend IPR. Patient and spouse would like to go home with [facility]. Referrals sent, pending accepting [facility] agency. DME recommended--gabrielle khalil, ariadna kilgore, bedside commode--scripts written and face to face notes signed. Diet: Dietary Orders (From admission, onward) Start Ordered 09/24/24 1240 Regular Diet Diet effective now Question: Room Service? Answer: Yes 09/24/24 1242 Physician Expected Discharge Date: 09/25/2024 Discharge Delays: PT Six Click Score: 16 OT Six Click Score: 17 PT Recommendations: Inpatient rehab facility placement (Pt requesting home discharge and will need equipment listed below for safe mobility as well as home health PT/OT.) OT Recommendations: Inpatient rehab facility placement (Pt currently reporting desire to return home upon discharge; expected to require frequent assist with ADLs and mobility, PT/OT, bariatric manual wheelchair with elevating leg rests/bariatric RW/bariatric bedside commode) New Consults: Consult Orders (From admission, onward) Start Ordered 09/23/24 1232 Inpatient consult to Trauma Surgery Once Specialty: Trauma Surgery Provider: (Not yet assigned) Question Answer Comment [employer] TRAUMA SURGERY TEAM Reason for Consult? R tib fib facrture Level of Consultation Production Support Developer assumes full responsibility 09/23/24 1231 09/23/24 1221 Inpatient consult to Cardiology Once Specialty: Cardiology Provider: (Not yet assigned) Question Answer Comment [employer] CARDIOLOGY TEAM Reason for Consult? Breanna-operative risk stratification Level of Consultation Consultation and Management 09/23/24 1221 Ancillary Consults (From admission, onward) Start Ordered 09/25/24 1411 Inpatient Consult to Pulmonary Navigator Once Provider: (Not yet assigned) Question: Reason for consult Answer: Snoring/Possible PATEL 09/25/24 1410 Therapy Orders (From admission, onward) Start Ordered 09/24/24 1240 PT eval and treat Until therapy completed Question: Reason for PT? Answer: Post muscular skeletal surgical procedure 09/24/24 1242 09/24/24 1240 OT eval and treat Until therapy completed Question: Reason for OT? Answer: Post muscular skeletal surgical procedure 09/24/24 1242 Normal [facility] BASIC METABOLIC PANELon 09-13 Anion gap [Moles/Vol] 9 mmol/L Normal 7-20 [facility] Comment on above: Performed By: #### L [id number] ####[facility] (BEAKER)[address] [place] [address] Calcium [Mass/Vol] 8.9 mg/dL Normal 8.6-10.3 [facility] Comment on above: Performed By: #### L [id number] ####[facility] LAB (BEAKER)[address] [place] [address] Chloride [Moles/Vol] 97 mmol/L Low 98-107 [facility] Comment on above: Performed By: #### L [id number] ####[facility] LAB (BEAKER)[address] [place] [address] CO2 [Moles/Vol] 32 mmol/L High 21-31 [facility] Comment on above: Performed By: #### L [id number] ####[facility] LAB (BEAKER)[address] [place] [address] Creatinine [Mass/Vol] 0.91 mg/dL Normal 0.70-1.30 [facility] Comment on above: Performed By: #### L [id number] ####[facility] LAB (BEAKER)[address] [facility] [address] GLOMERULAR FILTRATION RATE ML/MIN/1.73 SQ M.PREDICTED 100.2 mL/min/1.73m*2 Normal >60.0 [facility] Comment on above: Result Comment: The [facility]???s estimated glomerular filtration rate (eGFR) will no longer include consideration of race in its calculation. The National Kidney Foundation???s eGFR Task Force developed new recommendations for the estimation of the glomerular filtration rate in the [place] They recommend immediate implementation of the new equation refit without the race variable in all laboratories because the calculation does not include race. In addition to not including race in the calculation and reporting, it included diversity in its development, and has acceptable performance characteristics and potential consequences that do not disproportionately affect any one group of individuals. Performed By: #### L [id number] ####[facility] ([facility])[address] [facility] [address] Glucose [Mass/Vol] 141 mg/dL High 70-100 [facility] Comment on above: Performed By: #### L [id number] ####[facility] ([facility])[address] [facility] [address] Potassium [Moles/Vol] 4.2 mmol/L Normal 3.5-5.1 [facility] Comment on above: Performed By: #### L [id number] ####[facility] ([facility])[address] [facility] [address] Sodium [Moles/Vol] 134 mmol/L Low 136-145 [facility] Comment on above: Performed By: #### L [id number] ####[facility] ([facility])[address] [facility] [address] Urea nitrogen [Mass/Vol] 15 mg/dL Normal 7-25 [facility] Comment on above: Performed By: #### L [id number] ####[facility] ([facility])[address] [facility] [address] UREA NITROGEN/CREATININE (MASS RATIO) IN SER/PLAS 16.5 Normal [facility] Comment on above: Performed By: #### L [id number] ####[facility] ([facility])[address] [facility] [address] CBCon 09-25-2024 Erythrocyte distribution width (RBC) [Ratio] 14.9 % Normal 11.5-15.0 [facility] Comment on above: Performed By: #### L [id number] #### [facility] ([facility]) [address] [place] [address] ERYTHROCYTE MEAN CORPUSCULAR HEMOGLOBIN CONCENTRATION (G/DL) BY AUTOMATED 31.1 g/dL Low 32.0-35.0 [facility] Comment on above: Performed By: #### L [id number] #### [facility] [address] [place] [address] Hematocrit (Bld) [Volume fraction] 45.4 % Normal 39.0-55.0 [facility] Comment on above: Performed By: #### L [id number] #### [facility] [address] [place] [address] Hemoglobin (Bld) [Mass/Vol] 14.1 g/dL Normal 13.0-17.0 [facility] Comment on above: Performed By: #### L [id number] #### [facility] ([facility]) [address] [place] [address] MCH (RBC) [Entitic mass] 26.3 pg Low 27.0-33.0 [facility] Comment on above: Performed By: #### L [id number] #### [facility] ([facility]) [address] [place] [address] MCV (RBC) [Entitic vol] 84.5 fL Normal 82.0-98.0 [facility] Comment on above: Performed By: #### L [id number] #### [facility] ([facility]) [address] [place] [address] PLATELETS (10*3/UL) IN BLOOD AUTOMATED COUNT 205 10*3/uL Normal 150-400 [facility] Comment on above: Performed By: #### L [id number] #### [facility] [address] [place] [address] RBC (Bld) [#/Vol] 5.37 10*6/uL Normal 4.20-5.70 [facility] Comment on above: Performed By: #### L [id number] #### [facility] [address] [place] [address] WBC (Bld) [#/Vol] 14.37 10*3/uL High 4.00-10.60 [facility] Comment on above: Performed By: #### L [id number] #### [facility] ([facility] [address] [place] [address] MAGNESIUMon 09-25-2024 Magnesium [Mass/Vol] 2.1 mg/dL Normal 1.9-2.7 [facility] Comment on above: Performed By: #### L [id number] ####[facility] ([facility] [place] [address] NURSNOTEon 09-25-2024 NURSLEONORE Trauma RN met adrian dunham at bedside and provided the Trauma Services Patient Brochure. Patient will follow-up with Orthopedics 10/05/2024 at 0900. No further needs currently. Normal [facility] PHOSPHORUSon 09-25-2024 Magnesium [Mass/Vol] 2.8 mg/dL Normal 2.5-5.0 [facility] Comment on above: Performed By: #### L [id number] ####[facility] ([facility])[address] [place] [address] 30on 09-24-2024 30 The patient is Moderately Stable - Low risk of patient condition declining or worsening The patient's goals for the shift include pain control The clinical goals for the shift include vss,,free of pain Over the shift, the patient did not make progress toward the following goals. Barriers to progression include Problem: Pain - Adult Goal: Verbalizes/displays adequate comfort level or baseline comfort level Outcome: Progressing Problem: Safety - Adult Goal: Free from fall injury Outcome: Progressing Normal [facility] BASIC METABOLIC PANELon 09-13 Anion gap [Moles/Vol] 8 mmol/L Normal 7-20 [facility] Comment on above: Performed By: #### L [id number] ####[facility] ([facility] [place] [address] Calcium [Mass/Vol] 9.1 mg/dL Normal 8.6-10.3 [facility] Comment on above: Performed By: #### L [id number] ####[facility] LAB (BEAKER)[address] [place] [address] Chloride [Moles/Vol] 98 mmol/L Normal 98-107 [facility] Comment on above: Performed By: #### L [id number] ####[facility] (BEAKER)[address] [place] [address] CO2 [Moles/Vol] 35 mmol/L High 21-31 [facility] Comment on above: Performed By: #### L [id number] ####[facility] ([facility] [place] [address] Creatinine [Mass/Vol] 1.02 mg/dL Normal 0.70-1.30 [facility] Comment on above: Performed By: #### L [id number] ####[facility] ([facility])[address] [place] [address] GLOMERULAR FILTRATION RATE ML/MIN/1.73 SQ M.PREDICTED 87.3 mL/min/1.73m*2 Normal >60.[address] [facility] Comment on above: Result Comment: The [facility]???s estimated glomerular filtration rate (eGFR) will no longer include consideration of race in its calculation. The National Kidney Foundation???s eGFR Task Force developed new recommendations for the estimation of the glomerular filtration rate in the [place] They recommend immediate implementation of the new equation refit without the race variable in all laboratories because the calculation does not include race. In addition to not including race in the calculation and reporting, it included diversity in its development, and has acceptable performance characteristics and potential consequences that do not disproportionately affect any one group of individuals. Performed By: #### L [id number] ####[facility] ([facility] [place] [address] Glucose [Mass/Vol] 103 mg/dL High 70-100 [facility] Comment on above: Performed By: #### L [id number] ####[facility] ([facility] [place] [address] Potassium [Moles/Vol] 4.2 mmol/L Normal 3.5-5.1 [facility] Comment on above: Performed By: #### L [id number] ####[facility] ([facility])[address] [place] [address] Sodium [Moles/Vol] 137 mmol/L Normal 136-145 [facility] Comment on above: Performed By: #### L [id number] ####[facility] [address] Urea nitrogen [Mass/Vol] 11 mg/dL Normal 7-25 [facility] Comment on above: Performed By: #### L [id number] ####[facility] ([facility])[address] [place] [address] UREA NITROGEN/CREATININE (MASS RATIO) IN SER/PLAS 10.8 Normal [facility] Comment on above: Performed By: #### L [id number] ####[facility] ([facility])[address] [place] [address] CBCon 09-24-2024 Erythrocyte distribution width (RBC) [Ratio] 15.5 % High 11.5-15.0 [facility] Comment on above: Performed By: #### L [id number] ####[facility] ([facility])[address] [address] ERYTHROCYTE MEAN CORPUSCULAR HEMOGLOBIN CONCENTRATION (G/DL) BY AUTOMATED 30.4 g/dL Low 32.0-35.0 [facility] Comment on above: Performed By: #### L [id number] ####[facility] ([facility] [place] [address] Hematocrit (Bld) [Volume fraction] 46.4 % Normal 39.0-55.0 [facility] Comment on above: Performed By: #### L [id number] ####[facility] ([facility] [place] [address] Hemoglobin (Bld) [Mass/Vol] 14.1 g/dL Normal 13.0-17.0 [facility] Comment on above: Performed By: #### L [id number] ####[facility] ([facility])[address] [place] [address] MCH (RBC) [Entitic mass] 26.4 pg Low 27.0-33.0 [facility] Comment on above: Performed By: #### L [id number] ####[facility] ([facility] [place] [address] MCV (RBC) [Entitic vol] 86.7 fL Normal 82.0-98.0 [facility] Comment on above: Performed By: #### L [id number] ####[facility] ([facility])[address] [place] [address] PLATELETS (10*3/UL) IN BLOOD AUTOMATED COUNT 175 10*3/uL Normal 150-400 [facility] Comment on above: Performed By: #### L [id number] ####[facility] ([facility])[address] [place] [address] RBC (Bld) [#/Vol] 5.35 10*6/uL Normal 4.20-5.70 [facility] Comment on above: Performed By: #### L [id number] ####[facility] ([facility])[address] [place] [address] WBC (Bld) [#/Vol] 7.56 10*3/uL Normal 4.00-10.60 [facility] Comment on above: Performed By: #### L [id number] ####[facility] ([facility])[address] [place] [address] CONSULTon 09-24-2024 CONSULT Physical Medicine an d Rehabilitation Consult Note Patient not staffed by PM&R today due to surgery today for IMN placement. Our team will staff tomorrow, 09/25/23. Silvia Zaldivar MD Normal [facility] MAGNESIUMon 09-24-2024 Magnesium [Mass/Vol] 2.2 mg/dL Normal 1.9-2.7 [facility] Comment on above: Performed By: #### L [id number] ####[facility] ([facility] [place] [address] OPNOTEon 09-24-2024 OPNOTE -- Attestation signed by Sandrine Hahn MD at 09/25/2024 8:00 AM By using the attestations below, the signing clinician agrees that I have read and verify that the documentation has been personally reviewed by me and ensure that the documentation accurately reflects the encounter. GC: I personally saw this patient on the day of the encounter, performed the rodriges portion(s) of the service and participated in the management and confirm the resident's documentation. Please note there may be an additional personal documentation from me. Procedure Attestation Level of Attending Supervision for Procedure I was present for the entire procedure CLOSED INSERTION, INTRAMEDULLARY WENDY, TIBIA (R) Operative Note Date: 09/23/2024 - 09/24/2024 Location: [facility] OR Name: Matty Toni Garces, : 1970, Diagnosis Pre-op Diagnosis * Closed fracture of right tibia and fibula, initial encounter [S82.201A, S82.401A] * Fall at home, initial encounter [W19.XXXA, Y92.009] Post-op Diagnosis * Closed fracture of right tibia and fibula, initial encounter [S82.201A, S82.401A] * Fall at home, initial encounter [W19.XXXA, Y92.009] Procedures Treatment of right tibial shaft fracture by intramedullary implant with interlocking screws [CPT: 17685] Stress exam of right ankle under anesthesia [CPT: 29776] Intraoperative use of fluoroscopy less than 1 hour by physician [CPT: 86883] Surgeons Primary: Sandrine Hahn MD Resident - Assisting: Bienvenido Trinidad MD; Luis Felipe Rivas MD; Gina Alvarez MD Procedure Summary Anesthesia: General ASA: III Estimated Blood Loss: 50 cc Total IV Fluids: See anesthesia record Drains: Male External Urinary Catheter (Active) Output (mL) 1500 mL 09/24/24 0400 Implants: Synthes 9 mm x 375 mm suprapatellar tibial nail-advanced Synthes 5 mm x 42 mm interlocking screw Synthes 5 mm x 45 mm interlocking screw Synthes 5 mm x 46 mm interlocking screw Synthes 5 mm x 34 mm interlocking screw Staff: Parts Picker: Emi Francis RN Fumigator And Sterilizer: CHARLINE Montejo Scrub Person: Araseli Butler CST Indications: Matty Garces is an 53 y.o. male who presented as a transfer from [facility] on 09/23/2024. Patient was transferred due to findings of a right distal third tibial shaft fracture after a fall in the shower. The fracture was closed and was subsequently reduced and splinted at [place] in a long-leg splint. Patient made stable overnight and was deemed ready for OR on 09/24/2024. Given the fracture morphology and characteristics, we feel he would be a good candidate for intramedullary nailing. Procedure Details: The patient was seen in the preoperative area. The risks, benefits, complications, treatment options, non-operative alternatives, expected recovery and outcomes were discussed with the patient. The possibilities of reaction to medication, pulmonary aspiration, injury to surrounding structures, bleeding, recurrent infection, the need for additional procedures, failure to diagnose a condition, and creating a complication requiring transfusion or operation were discussed with the patient. The patient concurred with the proposed plan, giving informed consent. The site of surgery was properly marked by attending physician. Prophylactic antibiotics have been ordered and given within 1 hours of incision. . have been ordered including unilateral sequential compression device. The patient was then taken back to the operating theater and placed in supine position on the operating table. Anesthesia was induced without complications. The right lower extremity was then prepped and draped in a standard sterile fashion. A time-out was next performed to confirm the correct patient, correct procedure, and correct laterality. Operative personnel were introduced as well. The bony landmarks about the knee were palpated for a suprapatellar approach for IM nailing. An incision was made approximately 1 fingerbreadth proximal to the patella in the midline. This was carried through the skin and subcutaneous tissue. The quad tendon this was split in line with its fibers leaving a small cuff just proximal to the patella. I was able to easily pass my index finger between the patella and the trochlea and would not require any significant further release of the patella for the procedure. I then inserted the trocar and soft tissue sleeves through the patellofemoral joint down to the proximal aspect of the tibia. Once this was in appropriate position a guidewire for the Synthes tibia IM nail was inserted into the proximal tibia. Biplanar fluoroscopy was used to confirm appropriate positioning and once this was done it was inserted into the proximal tibia. Then, while maintaining the position of the soft t (more content not included)... Normal [facility] PHOSPHORUSon 09-24-2024 Magnesium [Mass/Vol] 4.0 mg/dL Normal 2.5-5.0 [facility] Comment on above: Performed By: #### L [id number] ####[facility] ([facility])[address] [place] [address] POCT GLUCOSE METER UNSOLICIT ED RESULTSon 09-24-2024 Glucose [Mass/Vol] 100 mg/dL Normal 70-105 [facility] Comment on above: Order Comment: Waive d Testing in the ED is performed under the ED CLIA certificate #[id number]. Result Comment: asor [email or web address] Performed By: #### L [id number] #### [facility] ([facility]) [address] [place] [address] APTTon 09-23-2024 ACTIVATED PARTIAL THROMBOPLASTIN TIME IN PPP BY COAGULATION ASSAY 31.2 Seconds Normal 25.0-35.0 [facility] Comment on above: Result Comment: Clin ical significance of the APTT is questionable in the presence of heparin. Performed By: #### L [id number] #### [facility] ([facility]) [address] [place] [address] CBC WITH AUTO DIFFERENTIALon 09-23-2024 Basophils (Bld) [#/Vol] 0.05 10*3/uL Normal 0.00-0.20 [facility] Comment on above: Performed By: #### L [id number] #### [facility] ([facility]) [address] [place] [address] Basophils/100 WBC (Bld) 0.5 % Normal 0.0-1.0 [facility] Comment on above: Performed By: #### L [id number] #### [facility] ([facility]) [address] [place] [address] Eosinophils (Bld) [#/Vol] 0.11 10*3/uL Normal 0.00-0.50 [facility] Comment on above: Performed By: #### L [id number] #### [facility] [address] [place] [address] Eosinophils/100 WBC (Bld) 1.0 % Normal 0.0-6.0 [facility] Comment on above: Performed By: #### L [id number] #### [facility] ([facility] [address] [place] [address] Erythrocyte distribution width (RBC) [Ratio] 15.9 % High 11.5-15.0 [facility] Comment on above: Performed By: #### L [id number] #### [facility] ([facility]) [address] [place] [address] ERYTHROCYTE MEAN CORPUSCULAR HEMOGLOBIN CONCENTRATION (G/DL) BY AUTOMATED 30.3 g/dL Low 32.0-35.0 [facility] Comment on above: Performed By: #### L [id number] #### [facility] ([facility]) [address] [place] [address] Hematocrit (Bld) [Volume fraction] 47.8 % Normal 39.0-55.0 [facility] Comment on above: Performed By: #### L [id number] #### [facility] ([facility]) [address] [place] [address] Hemoglobin (Bld) [Mass/Vol] 14.5 g/dL Normal 13.0-17.0 [facility] Comment on above: Performed By: #### L [id number] #### [facility] ([facility]) [address] [place] [address] Immature granulocytes (Bld) [#/Vol] 0.10 10*3/uL Normal 0.00-0.20 [facility] Comment on above: Performed By: #### L [id number] #### [facility] ([facility]) [address] [place] [address] Immature granulocytes/100 WBC (Bld) 0.9 % Normal 0.0-1.0 [facility] Comment on above: Performed By: #### L [id number] #### [facility] ([facility]) [address] [place] [address] Lymphocytes (Bld) [#/Vol] 0.74 10*3/uL Low 1.20-4.00 [facility] Comment on above: Performed By: #### L [id number] #### [facility] ([facility]) [address] [place] [address] Lymphocytes/100 WBC (Bld) 7.0 % Low 20.0-45.0 [facility] Comment on above: Performed By: #### L [id number] #### [facility] [address] [place] [address] MCH (RBC) [Entitic mass] 26.4 pg Low 27.0-33.0 [facility] Comment on above: Performed By: #### L [id number] #### [facility] ([facility] [address] [place] [address] MCV (RBC) [Entitic vol] 87.1 fL Normal 82.0-98.0 [facility] Comment on above: Performed By: #### L [id number] #### [facility] ([facility]) [address] [place] [address] Monocytes (Bld) [#/Vol] 0.73 10*3/uL Normal 0.10-1.00 [facility] Comment on above: Performed By: #### L [id number] #### [facility] [address] [place] [address] Monocytes/100 WBC (Bld) 6.9 % Normal 5.0-12.0 [facility] Comment on above: Performed By: #### L [id number] #### [facility] ([facility]) [address] [place] [address] Neutrophils (Bld) [#/Vol] 8.83 10*3/uL High 1.60-7.60 [facility] Comment on above: Performed By: #### L [id number] #### [facility] ([facility]) [address] [place] [address] Neutrophils/100 WBC (Bld) 83.7 % High 40.0-72.0 [facility] Comment on above: Performed By: #### L [id number] #### [facility] ([facility]) [address] [place] [address] NRBC (PER 100 WBCS) BY AUTOMATED COUNT 0.0 % Normal 0 [facility] Comment on above: Performed By: #### L [id number] #### [facility] ([facility]) [address] [place] [address] PLATELETS (10*3/UL) IN BLOOD AUTOMATED COUNT 188 10*3/uL Normal 150-400 [facility] Comment on above: Performed By: #### L [id number] #### [facility] ([facility]) [address] [place] [address] RBC (Bld) [#/Vol] 5.49 10*6/uL Normal 4.20-5.70 [facility] Comment on above: Performed By: #### L [id number] #### [facility] [address] [place] [address] WBC (Bld) [#/Vol] 10.56 10*3/uL Normal 4.00-10.60 [facility] Comment on above: Performed By: #### L [id number] #### [facility] ([facility]) [address] [place] [address] COMPREHENSIVE METABOLIC PANE Clif 09-23-2024 Albumin [Mass/Vol] 3.9 g/dL Normal 3.5-5.7 [facility] Comment on above: Performed By: #### L [id number] ####[facility] ([facility])[address] [place] [address] ALP [Catalytic activity/Vol] 98 U/L Normal 34-104 [facility] Comment on above: Performed By: #### L [id number] ####[facility] ([facility])[address] [place] [address] ALT [Catalytic activity/Vol] 34 U/L Normal 7-52 [facility] Comment on above: Performed By: #### L [id number] ####[facility] ([facility])[address] [place] [address] Anion gap [Moles/Vol] 11 mmol/L Normal 7-20 [facility] Comment on above: Performed By: #### L [id number] ####[facility] ([facility])[address] [place] [address] AST [Catalytic activity/Vol] 63 U/L High 13-39 [facility] Comment on above: Performed By: #### L [id number] ####[facility] ([facility])[address] [place] [address] Bilirubin [Mass/Vol] 0.7 mg/dL Normal 0.3-1.0 [facility] Comment on above: Performed By: #### L [id number] ####[facility] ([facility])[address] [place] [address] Calcium [Mass/Vol] 8.9 mg/dL Normal 8.6-10.3 [facility] Comment on above: Performed By: #### L [id number] ####[facility] ([facility])[address] [place] [address] Chloride [Moles/Vol] 101 mmol/L Normal 98-107 [facility] Comment on above: Performed By: #### L [id number] ####[facility] ([facility])[address] [place] [address] CO2 [Moles/Vol] 27 mmol/L Normal 21-31 [facility] Comment on above: Performed By: #### L [id number] ####[facility] ([facility])[address] [place] [address] Creatinine [Mass/Vol] 0.96 mg/dL Normal 0.70-1.30 [facility] Comment on above: Performed By: #### L [id number] ####[facility] ([facility])[address] [place] [address] GLOMERULAR FILTRATION RATE ML/MIN/1.73 SQ M.PREDICTED 93.9 mL/min/1.73m*2 Normal >60.[address] [facility] Comment on above: Result Comment: The [facility]???s estimated glomerular filtration rate (eGFR) will no longer include consideration of race in its calculation. The National Kid[employer] Foundation???s eGFR Task Force developed new recommendations for the estimation of the glomerular filtration rate in the [place] They recommend immediate implementation of the new equation refit without the race variable in all laboratories because the calculation does not include race. In addition to not including race in the calculation and reporting, it included diversity in its development, and has acceptable performance characteristics and potential consequences that do not disproportionately affect any one group of individuals. Performed By: #### L [id number] ####[facility] ([facility])[address] [place] [address] Glucose [Mass/Vol] 93 mg/dL Normal 70-100 [facility] Comment on above: Performed By: #### L [id number] ####[facility] ([facility])[address] [place] [address] Potassium [Moles/Vol] 4.3 mmol/L Normal 3.5-5.1 [facility] Comment on above: Performed By: #### L [id number] ####[facility] ([facility])[address] [place] [address] Protein [Mass/Vol] 7.2 g/dL Normal 6.0-8.3 [facility] Comment on above: Performed By: #### L [id number] ####[facility] ([facility])[address] [place] [address] Sodium [Moles/Vol] 135 mmol/L Low 136-145 [facility] Comment on above: Performed By: #### L [id number] ####[facility] [place] [address] Urea nitrogen [Mass/Vol] 8 mg/dL Normal 7-25 [facility] Comment on above: Performed By: #### L [id number] ####[facility] ([facility])[address] [place] [address] UREA NITROGEN/CREATININE (MASS RATIO) IN SER/PLAS 8.3 Normal [facility] Comment on above: Performed By: #### L [id number] ####[facility] [place] [address] CONSULTon 09-23-2024 CONSULT -- Attestation signed by Sandrine Hahn MD at 09/24/2024 10:13 AM By using the attestations below, the signing clinician agrees that I have read and verify that the documentation has been personally reviewed by me and ensure that the documentation accurately reflects the encounter. GC: I personally saw this patient on the day of the encounter, performed the rodriges portion(s) of the service and participated in the management and confirm the resident's documentation. Please note there may be an additional personal documentation from me. Additional Comments: Orthopedic Surgery Subjective Leg Injury 09/23/24 Matty Garces is a 53 y.o. male presenting to the ED with pain and deformity secondary to right tibial shaft fracture as demonstrated on imaging following a fall at home in the shower. Patient claims that he had slipped in the shower and heard a snapping sound for falling to the floor. Complains of pain at this time and notes deformity. Denies any numbness/tingling/weak ness. Denies any knee or other LE pain, denies any back pain. Denies head/neck injury, LOC, or any other significant injury. Currently taking any blood thinners: No History Past Surgical History: Procedure Laterality Date ABDOMINAL SURGERY Past Medical History: Diagnosis Date Hypertension Pertinent review of systems negative except for what is documented in the HPI. Objective General: Vitals: 09/23/24 1530 BP: 143/88 Pulse: 98 Resp: 17 Temp: 36.8 ???C (98.2 ???F) SpO2: (!) 71% General: AOx3, mild distress 2/2 pain RLE: dressing clean, dry, and intact no open wounds or lesions minor overlying ecchymosis and abrasions No leg length discrepency No obvious deformity no warmth no erythema compartments soft and compressible sensation intact t/sp/dp/s/s good cap refill, 2+ DP/PT splint in place LABS Results from last 7 days Lab Units 09/23/24 1403 GLUCOSE mg/dL 93 SODIUM mmol/L 135* POTASSIUM mmol/L 4.3 CO2 mmol/L 27 CHLORIDE mmol/L 101 BUN mg/dL 8 CREATININE mg/dL 0.96 CALCIUM mg/dL 8.9 MAGNESIUM mg/dL 1.8* Results from last 7 days Lab Units 09/23/24 1212 WBC AUTO 10*3/uL 10.56 HEMOGLOBIN g/dL 14.5 HEMATOCRIT % 47.8 PLATELETS AUTO 10*3/uL 188 INR 1.28* Imaging XR chest 1 view Result Date: 09/23/2024 Unremarkable single view chest Electronically signed: Fahad Frazier. XR tibia fibula 2 views right Result Date: 09/23/2024 As above Electronically signed: Fahad Frazier. CT abdomen pelvis w IV contrast Result Date: 09/23/2024 Impression: * Unremarkable CT abdomen pelvis as above. * Enlarged prostate. Correlation PSA is advised. * Electronically signed: Fahad Frazier. CT chest w IV contrast Result Date: 09/23/2024 1. Hyperinflation chronic lung disease. 2. Prominent right hilar node. Although this may be reactive given calcified contralateral hilar nodes, follow-up surveillance imaging is advised. Specifically CT scan of the chest with contrast 3-4 months is recommended. Electronically signed: Fahad Frazier. CT tibia fibula right wo IV contrast Result Date: 09/23/2024 1. Comminuted fracture of the tibia and fibular shafts as above. No findings of intra-articular involvement. 2. Advanced degenerative changes of the knee Electronically signed: Fahad Frazier. CT cervical spine wo IV contrast Result Date: 09/23/2024 Multilevel lower cervical spine fusion without acute fracture nor listhesis. Electronically signed: Fahad Frazier. CT head wo IV contrast Result Date: 09/23/2024 Impression: * Unremarkable unenhanced CT brain * Electronically signed: Fahad Frazier. No MRI results found for the past 24 hours Assessment/Plan Matty Garces is a 53 y.o. male with a transverse fracture of the right tibial shaft and transverse fracture of the fibula after slipping in the shower Plan: -After speaking at length with patient regarding conservative and operative options including risks/benefits/alterna tives/indications, patient is agreeable to operative management via IMN -Admit to trauma -Plan for OR on 09/24/2024, informed consent was obtained -Consults to be placed: Cardiology -Diet: N.p.o. at midnight -Weight bearing & activity status: NWB RLE -q2h compartment checks -DVT ppx: hold for OR -Pain control, ice, and elevation of extremity -Antibiotics: Ancef -PT/OT: Following surgery -Remainder of care per primary team This plan was discussed in detail with Dr. Hahn. Gina Alvarez MD Orthopaedic Surgery, Resident Ortho Pager [phone] 09/23/24 6:55 PM May contact the on-call resident with any concerns via the Orthopaedic pager at any time. Normal [facility] CT ABDOMEN PELVIS W IV CONTR Barak 09-23-2024 CT ABDOMEN PELVIS W IV CONTRAST Clinical History and Information: Injury, pain, fall Findings: Contrast: None Multidetector helical CT was performed of the abdomen and pelvis. Axial sagittal coronal images were reviewed. Automated exposure control was utilized. All CT scans at this facility use dose modulation, iterative reconstruction, and/or weight based dosing when appropriate to reduce radiation dose to as low as reasonably achievable. Comparison:None The liver, spleen, pancreas, kidneys and adrenal glands unremarkable. No retroperitoneal pelvic nor inguinal adenopathy. No mesenteric edema. No gallstone. No biliary tree dilatation. Contrast-enhancement portal vein splenic vein and SMV. Abdominal aorta is normal in size. Small inguinal hernias right greater than left. No bowel obstruction Prostate prominent in size. Lumbar spine satisfactory alignment. No compression deformity nor listhesis. Multilevel spurring. IMPRESSION: Impression: * Unremarkable CT abdomen pelvis as above. * Enlarged prostate. Correlation PSA is advised. * Electronically signed: Fahad Frazier. Normal [facility] CT CERVICAL SPINE WO IV CONT RASTon 09-23-2024 CT CERVICAL SPINE WO IV CONTRAST CT CERVICAL SPINE WO IV CONTRAST 09/23/2024 12:35 PM CLINICAL INDICATIONS: Fall injury and pain PROTOCOL: TECHNIQUE: Multi detector CT axial slices of the cervical spine are obtained from the occiput to the upper thoracic vertebral body without IV contrast. Volumetric acquisition sagittal, coronal, and 3-D reconstructions were performed and reviewed on a separate workstation. All CT scans at this facility use dose modulation, iterative reconstruction, and/or weight based dosing when appropriate to reduce radiation dose to as low as reasonably achievable COMPARISON: None. FINDINGS: Fusion at C5, C6, C7. No acute fracture nor listhesis. Mild facet osteoarthritis. Facets and satisfactory alignment. No acute compression deformity nor listhesis. C1-C2 occipital condyles satisfactory alignment. Dens intact. IMPRESSION: Multilevel lower cervical spine fusion without acute fracture nor listhesis. Electronically signed: Fahad Frazier. Normal [facility] CT CHEST W IV CONTRASTon CT CHEST W IV CONTRAST CT CHEST W IV CONTRAST 09/23/2024 12:32 PM CLINICAL INDICATIONS: Fall injury pain PROTOCOL: CONTRAST: 100 mL's Omni 350 TECHNIQUE: Multidetector CT axial slices of the chest were obtained with IV contrast. Multiplanar reformats were performed and viewed on a separate workstation and reviewed to further define anatomy and possible pathology. All CT scans at this facility use dose modulation, iterative reconstruction, and/or weight based dosing when appropriate to reduce radiation dose to as low as reasonably achievable. COMPARISON: None. FINDINGS: The lungs are hyperinflated. There is lower lobe atelectasis and dependent edema. No volume loss or consolidation. Prominent right hilar node measuring 1.9 x 1.4 cm. Continued surveillance imaging is advised. Smaller left hilar nodes are partially calcified. No acute probably reactive. No other mediastinal or hilar nodes of concern at this time. Thyroid uniformly enhances. No supraclavicular or axillary adenopathy. Heart size normal. No significant coronary calcifications. Thoracic spine satisfactory alignment. No compression deformity nor listhesis. Upper Abdomen: Within normal limits. IMPRESSION: 1. Hyperinflation chronic lung disease. 2. Prominent right hilar node. Although this may be reactive given calcified contralateral hilar nodes, follow-up surveillance imaging is advised. Specifically CT scan of the chest with contrast 3-4 months is recommended. Electronically signed: Fahad Frazier. Normal [facility] CT HEAD WO IV CONTRASTon CT HEAD WO IV CONTRAST Clinical History and Information: Fall injury pain Findings: Contrast: None Multidetector helical CT was performed of the brain. Axial sagittal coronal images were reviewed. Automated exposure control was utilized. All CT scans at this facility use dose modulation, iterative reconstruction, and/or weight based dosing when appropriate to reduce radiation dose to as low as reasonably achievable. Comparison:None * No acute hemorrhage, midline shift, nor edema. * Ventricles and cisterns are unremarkable. * Bone images of the calvarium are normal. IMPRESSION: Impression: * Unremarkable unenhanced CT brain * Electronically signed: Fahad Frazier. Normal [facility] CT TIBIA FIBULA RIGHT WO IV CONTRASTon 09-23-2024 CT TIBIA FIBULA RIGHT WO IV CONTRAST CT TIBIA FIBULA RIGHT WO IV CONTRAST 09/23/2024 12:33 PM CLINICAL INDICATIONS: Fracture TECHNIQUE: Multidetector CT axial slices were obtained without IV contrast. Multiplanar reformats, MIP, volume rendered 3-D images were generated on a separate workstation and reviewed to further define anatomy and possible pathology. All CT scans at this facility use dose modulation, iterative reconstruction, and/or weight based dosing when appropriate to reduce radiation dose to as low as reasonably achievable COMPARISON: None. FINDINGS: Comminuted fracture of the distal tibia numerous fracture fragments. There is also a displaced fracture of the adjacent fibular shaft. There is anterior angulation of the distal tibia. There is no significant displacement. No intra-articular involvement. Fracture planes are several centimeters superior to the ankle mortise and tibial fibular syndesmosis. Proximal tibia and fibula intact. Calcification of the patellar tendon and degenerative changes of the right knee. Suprapatellar effusion. Degenerative changes of the ankle. No soft tissue hematoma IMPRESSION: 1. Comminuted fracture of the tibia and fibular shafts as above. No findings of intra-articular involvement. 2. Advanced degenerative changes of the knee Electronically signed: Fahad Frazier. Normal [facility] EDNURSon 09-23-2024 EDNURS Mode of arrival (squ ad #, walk in, police, etc): SEMS Chief complaint(s): Right leg fracture Arrival Note (brief scenario, treatment ADULT AND PEDIATRIC NEUROLOGIST, etc): Patient arrives via [facility] from [facility] to be seen by orthopedics for Right tib-fib fracture. Patient arrives with Rt leg splinted [facility] EDPROVon 09-23-2024 EDPROV History of Present Illness Chief Complaint Patient presents with Leg Injury Initial evaluation completed by Dr. Lang. Matty Garces is a 53 y/o male presenting to the ED with c/o leg injury. Pt was transferred from [facility] for right distal tibfib fracture. Pt states that at around 4 am he was walking to the bathroom when he had a misstep and fell injuring right leg with deformities. Pt reports that he could not move from floor and denies head trauma or LOC. Pt could not move off of the floor. Pt denies abd pain, CP, SOB, numbness, weakness, or vomiting. Per chart review, noted to have comminuted displaced and angulated tibfib fracture on right. It was attempted to reduce it and there was repeat imaging that showed more angulation. Pt has hx of heart failure/cardiomyopathy . Pt states that he sees a neurologist and is on meds for seizures but is unsure what they are. History provided by: Patient Amo Coma Scale Score: 15 History Past Medical History: Diagnosis Date Hypertension Past Surgical History: Procedure Laterality Date ABDOMINAL SURGERY No family history on file. Social History Tobacco Use Smoking status: Never Smokeless tobacco: Never Substance Use Topics Alcohol use: Yes Comment: monthly Drug use: Yes Types: Marijuana Review of Systems Review of Systems Respiratory: Negative for shortness of breath. Cardiovascular: Negative for chest pain. Gastrointestinal: Negative for abdominal pain and vomiting. Musculoskeletal: Right leg tibfib fracture Neurological: Negative for syncope, weakness and numbness. Physical Exam ED Triage Vitals [09/23/24 1049] Temp Heart Rate Resp BP 36.7 ???C (98.1 ???F) 92 14 (!) 164/96 SpO2 Temp Source Heart Rate Source Patient Position 95 % Oral Monitor Lying BP Location FiO2 (%) Right arm -- Physical Exam Vitals and nursing note reviewed. Constitutional: General: He is not in acute distress. Appearance: Normal appearance. HENT: Head: Normocephalic and atraumatic. Eyes: Conjunctiva/sclera: Conjunctivae normal. Pupils: Pupils are equal, round, and reactive to light. Cardiovascular: Rate and Rhythm: Normal rate and regular rhythm. Pulses: Normal pulses. Heart sounds: Normal heart sounds. Comments: Difficulty palpating right foot due to splint. Pulmonary: Effort: Pulmonary effort is normal. Breath sounds: Normal breath sounds. Abdominal: Palpations: Abdomen is soft. Tenderness: There is no abdominal tenderness. Musculoskeletal: General: No swelling. Normal range of motion. Cervical back: Normal range of motion and neck supple. Comments: Pt has chronic stage 2/3 ulcer at the base of the left great toe, at baseline for patient. No surrounding erythema or warmth. RLE in long posterior splint with cap refill of right toes less than 2. Foot is warm to touch. Skin: General: Skin is warm and dry. Capillary Refill: Capillary refill takes less than 2 seconds. Neurological: General: No focal deficit present. Mental Status: He is alert and oriented to person, place, and time. Sensory: No sensory deficit. Procedures ED Course & MDM Diagnoses as of 09/23/24 1140 Closed fracture of right tibia and fibula, initial encounter Fall, initial encounter Medical Decision Making Melanie Au Said iman, documented on behalf of Dr. Lang. Chief complaint leg injury Plan of Care: XR tibia fibula 2 views right, XR chest 1 view, CT tibia fibula right wo IV contrast, CBC and differential, Comprehensive metabolic panel, Protime-INR, APTT, Type and screen, CBC auto differential, Ambulatory referral to Primary Care, Diet NPO, Inpatient Consult to Orthopaedic Surgery, HYDROmorphone (Dilaudid) injection 1 mg (1 mg intravenous Given 09/23/24 1057) Ortho will come see pt. Trauma accepted to admit pt and recommended basic blood work. ----- RESULTS ----- Labs: Labs Reviewed PROTIME-INR - Abnormal Result Value Protime 15.9 (*) INR 1.28 (*) CBC WITH AUTO DIFFERENTIAL - Abnormal Auto WBC 10.56 RBC 5.49 Hemoglobin 14.5 Hematocrit 47.8 MCV 87.1 MCH 26.4 (*) MCHC 30.3 (*) RDW 15.9 (*) Neutrophils Relative 83.7 (*) Lymphocytes Relative 7.0 (*) Monocytes Relative 6.9 Eosinophils Relative 1.0 Basophils Relative 0.5 Neutrophils Absolute 8.83 (*) Lymphocytes Absolute 0.74 (*) Monocytes Absolute 0.73 Eosinophils Absolute 0.11 Basophils Absolute 0.05 Platelets 188 nRBC % 0.0 Immature Granulocytes Relative 0.9 Immature Granulocytes Absolute 0.10 APTT - Normal aPTT 31.2 CBC AND DIFFERENTIAL Narrative: The following orders were created for panel order CBC and differential. Procedure Abnormality Status --------- ------ CBC auto differential[[id number]] Abnormal Final result Please view results for these tests on the individual orders. TYPE AND SCREEN ABO G (more content not included)... Normal [facility] ETHANOLon 09-23-2024 ETHANOL (MG/DL) IN SER/PLAS <10 Normal <10 [facility] Comment on above: Performed By: #### L [id number] #### [facility] (BEAKER) [address] [place] [address] ETHANOL CALCULATED (%) <0.01 Normal [facility] Comment on above: Performed By: #### L [id number] #### [facility] ([facility]AKER) [address] [place] [address] HPon 09-23-2024 [facility] Trauma Surgery Chief Complaint: Trauma Fall Mechanism of Injury: 53 y.o. year old male who was brought in via EMS. He had no C-collar or back board in place. Circumstances of injury: Patient states that he was recently admitted to [place] for cellulitis to the [facility], he was discharged yesterday and this morning was home, he got out of bed to take a shower and had a micro seizure and heard his right ankle snap. Denies hitting head or LOC but admits that he doesn't remember the whole event. He went back to [place] ED where a right tib/fib fracture was found and patient was transferred to [facility] Of note patient is on anticoagulant/antiplat elets. Baby aspirin, however he was receiving Shots to prevent blood clots while inpatient at [place] Review of Systems: General: No For Chills, Fatigue, Fever, recent weight loss or weight gain Head/Neck: no blurry vision, tinnitus, headache Respiratory: No Cough, Shortness Of Breath, Or Wheezing Cardiovascular: No Chest Pain Or Dyspnea On Exertion Gastrointestinal: No Abdominal Pain, Nausea, Vomiting Or Diarrhea. No Hematochezia Genito-Urinary: No Dysuria, Trouble Voiding, Or Hematuria Musculoskeletal: No Gait Disturbance, Weakness +right ankle pain Endocrine: no heat or cold intolerance, no hyperglycemia, no polyuria Neurological: No TIA Or Stroke Symptoms, Dizziness, Confusion, Numbness/Tingling, Visual Changes Psych: No history of depression, anxiety or substance abuse Dermatological: No Skin Changes, Rash, Nail Or Hair Changes History Past Medical History: has a past medical history of Hypertension., Heart failure, cellulitis, Past Surgical History: has a past surgical history that includes Abdominal surgery. Cervical fusion, hernia repair, Allergies: Patient has no known allergies. Home Medications: Medications Prior to Admission Medication Sig Dispense Refill Last Dose amantadine (Symmetrel) 100 mg capsule Take 100 mg by mouth two times daily. aspirin 81 mg EC tablet Take 81 mg by mouth in the morning. carvedilol (Coreg) 25 mg tablet Take 25 mg by mouth with breakfast and with evening meal. citalopram (CeleXA) 20 mg tablet Take 20 mg by mouth in the morning. clonazePAM (KlonoPIN) 0.5 mg tablet Take 0.5 mg by mouth at bedtime. doxazosin (Cardura) 8 mg tablet Take 8 mg by mouth at bedtime. doxepin (SINEquan) 10 mg capsule Take 10 mg by mouth if needed at bedtime for sleep. furosemide (Lasix) 20 mg tablet Take 20 mg by mouth in the morning. gabapentin (Neurontin) 600 mg tablet Take 600 mg by mouth three times daily. glycopyrrolate (Robinul) 1 mg tablet Take 1 mg by mouth two times daily. hydrOXYzine pamoate (Vistaril) 25 mg capsule Take 25 mg by mouth if needed at bedtime for anxiety. meclizine (Antivert) 25 mg tablet Take 25 mg by mouth if needed in the morning, at noon, and at bedtime for dizziness. modafinil (Provigil) 200 mg tablet Take 200 mg by mouth twice a day. multivitamin tablet Take 1 tablet by mouth in the morning. ondansetron (Zofran) 4 mg tablet Take 4 mg by mouth every 8 (eight) hours if needed for nausea or vomiting. pantoprazole (ProtoNix) 40 mg EC tablet Take 40 mg by mouth before breakfast. Do not crush, chew, or split. potassium chloride ER (Micro-K) 10 mEq ER capsule Take 10 mEq by mouth two times daily. Do not crush or chew. sildenafil (Viagra) 25 mg tablet Take 25 mg by mouth if needed each day for erectile dysfunction. simvastatin (Zocor) 20 mg tablet Take 20 mg by mouth at bedtime. SUMAtriptan (Imitrex) 100 mg tablet Take 100 mg by mouth 1 (one) time if needed for migraine. tiZANidine (Zanaflex) 4 mg capsule Take 4 mg by mouth in the evening. Social History: reports that he has never smoked. He has never used smokeless tobacco. He reports current alcohol use. He reports current drug use. Drug: Marijuana. Family History: pulled available information in Epic from previous visits No family history on file. Objective Vitals: BP: (145-164)/(86-96) 149/86 (09/23 1144) Systolic BP Percentile: -- Diastolic BP Percentile: -- Temp: [36.7 ???C (98.1 ???F)] 36.7 ???C (98.1 ???F) (09/23 1048) Temp Source: Oral (09/23 1048) Heart Rate: [89-95] 89 (09/23 1144) Resp: [14-21] 21 (09/23 1144) SpO2: [95 %-98 %] 95 % (09/23 1144) Height: [188 cm (6' 2 )] 188 cm (6' 2 ) (09/23 1048) Weight: [136 kg (300 lb)] 136 kg (300 lb) (09/23 1048) Amo Coma Scale Score: 15 No intake or output data in the 24 hours ending 09/23/241499 Physical Exam: General: Awake, Alert, No acute distress Head: Normocephalic and Atraumatic. Mid Face Stable. Nares Patent Bilaterally, No Epistaxis. Mouth Clear Of Foreign Bodies, No Lacerations Or Abrasions, Teeth Intact. No fluid or blood draining from the ear, nose or mouth. Eyes: PERRL, EOMI Neurologic: Alert And Oriented to self, place and time. Moving Extremities and Following Commands. CN 2-12 Grossly Intact, GCS 15 Neck: Cervica (more content not included)... Normal [facility] LACTIC ACID, PLASMAon 2024 LACTATE (MMOL/L) IN SER/PLAS 0.6 mmol/L Normal 0.5-2.2 [facility] Comment on above: Performed By: #### L [id number] #### [facility] (BEAKER) [address] [place] [address] MAGNESIUMon 09-23-2024 Magnesium [Mass/Vol] 1.8 mg/dL Low 1.9-2.7 [facility] Comment on above: Performed By: #### L [id number] #### [facility] (BEAKER) [address] [facility] [place] [address] PHOSPHORUSon 09-23-2024 Magnesium [Mass/Vol] 3.5 mg/dL Normal 2.5-5.0 [facility] Comment on above: Performed By: #### L [id number] ####[facility] (BEAKER)[address] [place] [address] PROTIME-INRon 09-23-2024 INR IN PPP BY COAGULATION ASSAY 1.28 High 0.90-1.10 [facility] Comment on above: Result Comment: ACCC P RECOMMENDED INR FOR WARFARIN THERAPY CONDITION INR PROPHYLAXIS OF VENOUS THROMBOSIS 2-3 (HIGH-RISK SURGERY) TREATMENT OF VENOUS THROMBOSIS 2-3 TREATMENT OF PULMONARY EMBOLISM 2-3 PREVENTION OF SYSTEMIC EMBOLISM: 2-3 ACUTE MYOCARDIAL INFARCTION TISSUE HEART VALVES VALVULAR HEART DISEASE ATRIAL FIBRILLATION RECURRENT SYSTEMIC EMBOLISM MECHANICAL HEART VALVE 2.5-3.5 FROM: ORAL ANTICOAGULANTS. MECHANISM OF ACTION, CLINICAL EFFECTIVENESS, AND OPTIMAL THERAPEUTIC RANGE. CHEST 1995;108:231S-246S. Performed By: #### L [id number] #### [facility] (BEAKER) [address] [place] [address] PROTHROMBIN TIME (PT) IN PPP BY COAGULATION ASSAY 15.9 Seconds High 12.3-14.8 [facility] Comment on above: Performed By: #### L [id number] #### [facility] (BEAKER) [address] [facility] [place] [address] TOXICOLOGY PANEL URINEon AMPHETAMINE+METHAMPH ETAMINE SCREEN (PRESENCE) IN URINE Negative Normal Negative [facility] Comment on above: Performed By: #### L [id number] ####[facility] ([facility])[address] [place] [address] BARBITURATES PRESENCE IN URINE BY SCREEN METHOD Negative Normal Negative [facility] Comment on above: Performed By: #### L [id number] ####[facility] (BEAKER)[address] [place] [address] Benzodiazepines Ql (U) Negative Normal Negative [facility] Comment on above: Performed By: #### L [id number] ####[facility] [place] [address] CANNABINOID (PRESENCE) IN URINE BY SCREEN METHOD Negative Normal Negative [facility] Comment on above: Performed By: #### L [id number] ####[facility] [place] [address] Cocaine Ql (U) Negative Normal Negative [facility] Comment on above: Performed By: #### L [id number] ####[facility] ([facility])[address] [place] [address] METHADONE (PRESENCE) IN URINE BY SCREEN METHOD Negative Normal Negative [facility] Comment on above: Performed By: #### L [id number] ####[facility] ([facility])[address] [place] [address] OPIATES (PRESENCE) IN URINE BY SCREEN METHOD Positive Abnormal Negative [facility] Comment on above: Performed By: #### L [id number] ####[facility] ([facility])[address] [place] [address] PHENCYCLIDINE PRESENCE IN URINE BY SCREEN METHOD Negative Normal Negative [facility] Comment on above: Performed By: #### L [id number] ####[facility] (BEAKER)[address] [place] [address] Propoxyphene Screen Ql (U) Negative Normal Negative [facility] Comment on above: Performed By: #### L [id number] ####[facility] (BEAKER)[address] [place] [address] TRICYCLIC ANTIDEPRESSANTS (PRESENCE) IN URINE Negative Normal Negative [facility] Comment on above: Performed By: #### L [id number] ####[facility] ([facility])[address] [place] [address] TROPONIN Ion 09-23-2024 Troponin I.cardiac [Mass/Vol] 0.01 ng/mL Normal 0.00-0.04 [facility] Comment on above: Performed By: #### L [id number] #### [facility] ([facility]) [address] [place] [address] TYPE AND SCREENon 09-23-2024 AB SCREEN Negative Normal [facility] Comment on above: Performed By: #### L [id number] #### [facility] ([facility]) [address] [place] [address] ABO group Nom (Bld) A Normal [facility] Comment on above: Performed By: #### L [id number] #### [facility] ([facility]) [address] [place] [address] RH TYPE IN BLOOD Positive Normal [facility] Comment on above: Performed By: #### L [id number] #### [facility] ([facility]) [address] [place] [address] URINALYSISon 09-23-2024 BILIRUBIN, TOTAL PRESENCE IN URINE Negative Normal Negative [facility] Comment on above: Order Comment: Micro scopics not performed on urines with negative chemical reactions unless requested on original order. Performed By: #### L [id number] #### [facility] ([facility]) [address] [place] [address] Clarity (U) Clear Normal Clear [facility] Comment on above: Order Comment: Micro scopics not performed on urines with negative chemical reactions unless requested on original order. Performed By: #### L [id number] #### [facility] ([facility]) [address] [place] [address] Color (U) Yellow Normal Colorless, Yellow, Light-Yellow [facility] Comment on above: Order Comment: Micro scopics not performed on urines with negative chemical reactions unless requested on original order. Performed By: #### L [id number] #### [facility] [facility] ([facility]) [address] [place] [address] GLUCOSE (MG/DL) IN URINE Normal Normal Normal [facility] Comment on above: Order Comment: Micro scopics not performed on urines with negative chemical reactions unless requested on original order. Performed By: #### L [id number] #### [facility] ([facility]) [address] [place] [address] HEMOGLOBIN PRESENCE IN URINE Negative Normal Negative [facility] Comment on above: Order Comment: Micro scopics not performed on urines with negative chemical reactions unless requested on original order. Performed By: #### L [id number] #### [facility] ([facility]) [address] [place] [address] Ketones Ql (U) Negative Normal Negative [facility] Comment on above: Order Comment: Micro scopics not performed on urines with negative chemical reactions unless requested on original order. Performed By: #### L [id number] #### [facility] ([facility]) [address] [place] [address] LEUKOCYTE ESTERASE PRESENCE IN URINE BY TEST STRIP Negative Normal Negative [facility] Comment on above: Order Comment: Micro scopics not performed on urines with negative chemical reactions unless requested on original order. Performed By: #### L [id number] #### [facility] ([facility]) [address] [place] [address] NITRITE PRESENCE IN URINE Negative Normal Negative [facility] Comment on above: Order Comment: Micro scopics not performed on urines with negative chemical reactions unless requested on original order. Performed By: #### L [id number] #### [facility] ([facility]) [address] [place] [address] pH (U) 6.0 [pH] Normal 5.0-8.0 [facility] Comment on above: Order Comment: Micro scopics not performed on urines with negative chemical reactions unless requested on original order. Performed By: #### L [id number] #### [facility] ([facility]) [address] [place] [address] Protein (U) [Mass/Vol] Negative Normal Negative [facility] Comment on above: Order Comment: Micro scopics not performed on urines with negative chemical reactions unless requested on original order. Performed By: #### L [id number] #### [facility] ([facility]) [address] [place] [address] Specific gravity (U) [Rel density] 1.050 High 1.010-1.030 [facility] Comment on above: Order Comment: Micro scopics not performed on urines with negative chemical reactions unless requested on original order. Performed By: #### L [id number] #### [facility] ([facility]) [address] [place] [address] UROBILINOGEN (MG/DL) IN URINE Normal Normal Normal [facility] Comment on above: Order Comment: Micro scopics not performed on urines with negative chemical reactions unless requested on original order. Performed By: #### L [id number] #### [facility] ([facility]) [address] [place] [address] VITAMIN D 25 HYDROXYon 09-23 CALCIDIOL (25 [place] VITAMIN D3) (NG/ML) IN SER/PLAS 42.6 ng/mL Normal 30.0-80.0 [facility] Comment on above: Result Comment: >80. 0 Toxicity possible Performed By: #### L [id number] #### [facility] ([facility]) [address] [place] [address] Superficial Wound Cultureon 09-21-2024 Superficial Wound Culture ORGANISM: Methicillin Resis Staph Aureus (O:MRSA) Quantity of Growth Light Growth Aerobic ADAM Charge (PCMIC38) --- SUSCEPTIBILITY -- ORGANISM: O:MRSA ANTIBIOTIC INTERPRETATION ADAM Azithromycin R >4 Ceftaroline S 1 Clindamycin S 0.5 Daptomycin S 1 Linezolid S 4 Oxacillin R >2 Penicillin R >2 Tetracycline S <4 Trimethoprim/Sulfameth oxazole R >2 Vancomycin S 1 S = SUSCEPTIBLE I = INTERMEDIATE R = RESISTANT BLANK = DATA NOT AVAILABLE, OR DRUG NOT ADVISABLE OR TESTED R* = RESISTANCE DUE TO EXTENDED SPECTRUM BETA-LACTAMASES ESBL = EXTENDED SPECTRUM BETA-LACTAMASE TFG = THYMIDINE-DEPENDENT STRAIN [place] = BETA-LACTAMASE POSITIVE IB = INDUCIBLE BETA-LACTAMASE. APPEARS IN PLACE OF 'S' WITH SPECIES KNOWN TO POSSESS INDUCIBLE BETA-LACTAMASES. POTENTIALLY THEY MAY BECOME RESISTANT TO ALL B-LACTAM DRUGS. PERFORMED BY: [place] [address] PATHOLOGIST SPOOL HAULER STEVE ANGEL M.D. Normal [facility] Comment on above: Performed By: #### C USUP #### [address] 01-03-2024 L Specimen: [id number] Received: 01/03/24 Status: GIOVANNI Prince Num: [id number] Spec Type: Surgical Subm Dr: Trey Vallejo DPM, [place] Tissues: A Bone Fragments - Pathologic Fracture (PROXIMAL PHALANX RIGHT HALLU) Procedures: HE/2, Gross/Micro L5, Decalcification Age/ Patient Sex Location Account Attending Physician Matty Garces 53/M LABE[facility] [id number] Trey Vallejo DPM, MS SPEC NUM: [id number] RECD: 01/03/24 STATUS: GIOVANNI PRINCE NUM: [id number] SOFY: 01/03/[address]: Trey Vallejo DPM, [place] ENTERED: 01/03/[address] [facility] DR: Toño,Ayesha SPEC TYPE: Surgical [...] Sectioning reveals unremarkable yellow, spongy bone matrix. Lining Machine Operator sections are submitted in A1 following decal. Clinical history: Non-pressure chronic ulcer . Right hallux IPJ arthroplasty with wound debridement and graft application TW ---- Specimen: [id number] Received: 01/03/24 Status: GIOVANNI Prince Num: [id number] Spec Type: Surgical Subm Dr: Trey Vallejo,DPJose Eduardo, [place] Tissues: A Bone Fragments - Pathologic Fracture (PROXIMAL PHALANX RIGHT HALLU) Procedures: HE/2, Gross/Micro L5, Decalcification ---- Patient: Matty Garces [id number] (Continued) ---- Specimen: [id number] Received: 01/03/24 (Continued) Signed (signature on file) Viral Rae MD 01/06/24 1838 ---- Specimen: [id number] Received: 01/03/24 Status: GIOVANNI Prince Num: [id number] Spec Type: Surgical Subm Dr: Trey Vallejo,DPM, MS Tissues: A Bone Fragments - Pathologic Fracture (PROXIMAL PHALANX RIGHT HALLU) Procedures: HE/2, Gross/Micro L5, Decalcification ---- Patient: Matty Garces [id number] (Continued) ---- Specimen: [id number] Received: 01/03/24 (Continued) CPT Codes 55487 ---- ---- Specimen: [id number] Received: 01/03/24 Status: GIOVANNI Prince Num: [id number] Spec Type: Surgical Subm Dr: Trey Vallejo,[place], [place] Tissues: A Bone Fragments - Pathologic Fracture (PROXIMAL PHALANX RIGHT HALLU) Procedures: HE/2, Gross/Micro L5, Decalcification ---- Patient: Matty Garces [id number] (Continued) ---- Signed (signature on file) Viral Rae MD 01/06/24 1838 Normal [facility] CT CSPINE WO CONon CT CSPINE WO CON EXAM: CT CSPINE WO C ON 12/06/2022 5:22 AM EDT [place]001 CLINICAL STATEMENT: [...] ANGEL SAID Date: 2022-12-06 06:37 Normal [facility] CT FACIAL BONES WO CONon [...] ANGEL SAID Date: 2022-12-06 06:41 Normal [facility] CT HEAD WO CONon 12-06-2022 [...] ANGEL SAID Date: 2022-12-06 06:39 [address] [facility] XR ELBOW RT MIN 3 VIEWSon XR ELBOW RT MIN 3 VIEWS Exam: Radiographs: XR ELBOW RT MIN 3 VIEWS Reason for exam: Elbow pain Comparison: None IMPRESSION: Right elbow degenerative changes. Olecranon spur. Remainder of the right elbow is unremarkable. Electronically authenticated by: MICHAEL CASANOVA Date: 2022-12-06 07:22 Normal [facility] XR FOREARM RT 2Von XR FOREARM RT 2V Exam: Radiographs: X R FOREARM RT 2V Reason for exam: Forearm pain Comparison: None IMPRESSION: Mild degenerative changes in the right elbow and wrist. Right forearm is otherwise unremarkable. Electronically authenticated by: MICHAEL CASANOVA Date: 2022-12-06 08:07 [address] [facility] PSA, FREE AND TOTAL RATIOon [...] men. Performed By: #### P SAFREE #### [facility] [address] [address] [address] Shabnam Rae Prostate specific Ag [Mass/Vol] 5.9 ng/mL Critically high 0.0-4.0 [facility] Comment on above: Result Comment: Tanja BRANTLEY methodology. . According to the [place] [employer], Serum PSA should decrease and [...] disease. Performed By: #### P SAFREE #### [facility] [address] [address] [address] Shabnam Rae PSA, Free 0.53 ng/mL Normal N/A [facility] Comment on above: Result Comment: [place] ECLIA methodology. Performed By: #### P SAFREE #### [facility] [address] [place] [address] Dr. Shabnam Rae INSULINon 12-02-2022 Insulin 20.2 uIU/mL Normal 2.6-24.9 [facility] Comment on above: Performed By: #### P SASC #### [facility] [address] [place] [address] Dr. Shabnam Rae TESTOSTERONE, TOTALon 2022 Testosterone [Mass/Vol] 256 ng/dL Critically low 264-916 [facility] Comment on above: Result Comment: Adul t male reference interval is based on a population of healthy nonobese males (BMI <30) between 19 and 39 years old. Dima et.al. JCEM 2017,102;4527-7673. PMID: [id number]. Performed By: #### P SASC #### [facility] [address] [place] [address] Dr. Shabnam Rae CBC AUTO DIFFon 12-01-2022 BASO # 0.1 103/ul Normal 0.0-0.1 [facility] Comment on above: Performed By: #### P SASC #### [facility] [address] [place] [address] Dr. Shabnam Rae Basophils/100 WBC (Bld) 1.0 % Normal 0.2-2.0 [facility] Comment on above: Performed By: #### P SASC #### [facility] [address] [place] [address] Dr. Shabnam Rae EO # 0.1 103/ul Normal 0.0-0.7 [facility] Comment on above: Performed By: #### P SASC #### [facility] [address] [place] [address] Dr. Shabnam Rae Eosinophils/100 WBC (Bld) 1.8 % Normal 0.9-7.0 [facility] Comment on above: Performed By: #### P SASC #### [facility] [address] [place] [address] Dr. Shabnam Rae Erythrocyte distribution width (RBC) [Ratio] 14.8 % Normal 11.0-15.0 [facility] Comment on above: Performed By: #### P SASC #### [facility] [address] [place] [address] Dr. Shabnam Rae Hematocrit (Bld) [Volume fraction] 49.9 % Normal 42.0-54.0 [facility] Comment on above: Performed By: #### P SASC #### [facility] [address] [place] [address] Dr. Shabnam Rae Hemoglobin (Bld) [Mass/Vol] 16.0 g/dL Normal 14.0-18.0 [facility] Comment on above: Performed By: #### P SASC #### [facility] [address] [place] [address] Dr. Shabnam Rae IG # 0.04 10e3/ul Critically high 0.00-0.03 [facility] Comment on above: Performed By: #### P SASC #### [facility] [address] [place] [address] Dr. Shabnam Rae IG % 0.6 % Critically high 0.0-0.5 [facility] Comment on above: Performed By: #### P SASC #### [facility] [address] [place] [address] Dr. Shabnam Rae LYMPH # 1.0 103/ul Critically low 1.2-3.8 [facility] Comment on above: Performed By: #### P SASC #### [facility] [address] [place] [address] Dr. Shabnam Rae Lymphocytes/100 WBC (Bld) 16.2 % Critically low 20.5-60.0 [facility] Comment on above: Performed By: #### P SASC #### [facility] [address] [place] [address] Dr. Shabnam Rae MANUAL DIFF REQ NO Normal [facility] Comment on above: Performed By: #### P SASC #### [facility] [address] [place] [address] Dr. Shabnam Rae MCH (RBC) [Entitic mass] 27.7 pg Normal 25.9-34.0 [facility] Comment on above: Performed By: #### P SASC #### [facility] [address] [address] [address] Shabnam Rae MCHC (RBC) [Mass/Vol] 32.1 g/dL Normal 29.9-35.2 [facility] Comment on above: Performed By: #### P SASC #### [facility] [address] [place] [address] Dr. Shabnam Rae MCV (RBC) [Entitic vol] 86.3 fL Normal 80.0-94.0 [facility] Comment on above: Performed By: #### P SASC #### [facility] [address] [place] [address] Dr. Shabnam Rae MONO # 0.5 103/ul Normal 0.3-0.8 [facility] Comment on above: Performed By: #### P SASC #### [facility] [address] [place] [address] Dr. Shabnam Rae Monocytes/100 WBC (Bld) 7.6 % Normal 1.7-12.0 [facility] Comment on above: Performed By: #### P SASC #### [facility] [address] [place] [address] Dr. Shabnam Rae NEUT # 4.6 103/ul Normal 1.4-6.[address] [facility] Comment on above: Performed By: #### P SASC #### [facility] [address] [place] [address] Dr. Shabnam Rae Neutrophils/100 WBC (Bld) 72.8 % Normal 43.0-75.[address] [facility] Comment on above: Performed By: #### P SASC #### [facility] [address] [place] [address] Dr. Shabnam Rae Platelet mean volume (Bld) [Entitic vol] 9.8 fL Normal 9.5-13.5 [facility] Comment on above: Performed By: #### P SASC #### [facility] [address] [place] [address] Dr. Shabnam Rae PLT 203 103/ul Normal 150-450 [facility] Comment on above: Performed By: #### P SASC #### [facility] [address] [address] [address] Shabnam Rae RBC 5.78 106/ul Normal 4.70-6.10 [facility] Comment on above: Performed By: #### P SASC #### [facility] [address] [address] [address] Shabnam Rae WBC 6.3 103/ul Normal 4.0-11.0 [facility] Comment on above: Performed By: #### P SASC #### [facility] [address] [address] [address] Shabnam Rae FREE THYROXINE INDEX T7on FTI 2.05 Normal 1.30-4.50 [facility] Comment on above: Performed By: #### T SH, CMP, LIPID, T7, URIC #### [facility] [address] [place] [address] Dr. Shabnam Rae T3U 33.0 % Normal 33.0-40.0 [facility] Comment on above: Performed By: #### T SH, CMP, LIPID, T7, URIC #### [facility] [address] [address] [address] Shabnam Rae T4 [Mass/Vol] 6.20 ug/dL Normal 4.50-12.10 [facility] Comment on above: Performed By: #### T SH, CMP, LIPID, T7, URIC #### [facility] [address] [address] [address] Shabnam Rae GLYCOHEMOGLOBIN A1Con 2022 ADA RECOMMENDATION SEE BELOW Normal [facility] Comment on above: Result Comment: ADA RECOMMENDED LIMIT 4.0 - 6.0 ADA THERAPEUTIC TARGET < 7.0 ACTION SUGGESTED > 7.0 Performed By: #### P SASC #### [facility] [address] [place] [address] Dr. Shabnam Rae Glucose [Mass/Vol] 114 mg/dL Normal [facility] Comment on above: Performed By: #### P SASC #### [facility] [address] [address] [address] Shabnam Rae HbA1c (Bld) [Mass fraction] 5.6 % Normal 4.5-6.2 [facility] Comment on above: Performed By: #### P SASC #### [facility] [address] [address] [address] Shabnam Rae LIPID PROFILEon 12-01-2022 CHOL-HDL RATIO NORM SEE BELOW Normal [facility] Comment on above: Result Comment: 3.3 - 4.4 LOW RISK 4.4 - 7.1 AVERAGE RISK 7.1 - 11.0 MODERATE RISK >11.0 HIGH RISK Performed By: #### T SH, CMP, LIPID, T7, URIC #### [facility] [address] [address] [address] Shabnam Rae Cholesterol [Mass/Vol] 176 mg/dL Normal <=200 [facility] Comment on above: Performed By: #### T SH, CMP, LIPID, T7, URIC #### [facility] [address] [address] [address] Shabnam Rae Cholesterol in HDL [Mass/Vol] 48 mg/dL Normal 40-60 [facility] Comment on above: Performed By: #### T SH, CMP, LIPID, T7, URIC #### [facility] [address] [address] [address] Shabnam Rae Cholesterol in LDL [Mass/Vol] 108.2 mg/dL Normal [facility] Comment on above: Performed By: #### T SH, CMP, LIPID, T7, URIC #### [facility] [address] [address] [address] Shabnam Rae Cholesterol.total/Ch olesterol in HDL [Mass ratio] 3.7 {ratio} Normal [facility] Comment on above: Performed By: #### T SH, CMP, LIPID, T7, URIC #### [facility] [address] [address] [address] Shabnam Rae HDL NORMAL > or = 60 mg/dl - LO W CARDIOVASCULAR RISK <40 mg/dl - HIGH CARDIOVASCULAR RISK Normal [facility] Comment on above: Performed By: #### T SH, CMP, LIPID, T7, URIC #### [facility] [address] [address] [address] Shabnam Rae LDL CALC NORMAL SEE BELOW Normal [facility] Comment on above: Result Comment: <100 mg/dl OPTIMAL 100 - 129 mg/dl NEAR OR ABOVE OPTIMAL 130 - 159 mg/dl BORDERLINE HIGH 160 - 189 mg/dl HIGH >190 mg/dl VERY HIGH Performed By: #### T SH, CMP, LIPID, T7, URIC #### [facility] [address] [address] [address] Shabnam Rae Triglyceride [Mass/Vol] 99 mg/dL Normal <=150 [facility] Comment on above: Performed By: #### T SH, CMP, LIPID, T7, URIC #### [facility] [address] [address] [address] Shabnam Rae VLDL CALC 19.8 mg/dL Normal [facility] Comment on above: Performed By: #### T SH, CMP, LIPID, T7, URIC #### [facility] [address] [address] [address] Shabnam Rae PROF 14(COMP METB)on 023 Albumin [Mass/Vol] 4.1 g/dL Normal 3.4-5.0 [facility] Comment on above: Performed By: #### T SH, CMP, LIPID, T7, URIC #### [facility] [address] [address] [address] Shabnam Rae Albumin/Globulin [Mass ratio] 1.1 {ratio} Normal [facility] Comment on above: Performed By: #### T SH, CMP, LIPID, T7, URIC #### [facility] [address] [address] [address] Shabnam Rae ALP [Catalytic activity/Vol] 101 U/L Normal 46-116 [facility] Comment on above: Performed By: #### T SH, CMP, LIPID, T7, URIC #### [facility] [address] [address] [address] Shabnam Rae ALT [Catalytic activity/Vol] 26 U/L Normal 16-63 [facility] Comment on above: Performed By: #### T SH, CMP, LIPID, T7, URIC #### [facility] [address] [address] [address] Shabnam Rae Anion gap [Moles/Vol] 10.1 mmol/L Normal [facility] Comment on above: Performed By: #### T SH, CMP, LIPID, T7, URIC #### [facility] [address] [place] [address] Dr. Shabnam Rae AST [Catalytic activity/Vol] 19 U/L Normal 15-[address] [facility] Comment on above: Performed By: #### T SH, CMP, LIPID, T7, URIC #### [facility] [address] [place] [address] Dr. Shabnam Rae Bilirubin [Mass/Vol] 0.8 mg/dL Normal 0.2-1.0 [facility] Comment on above: Performed By: #### T SH, CMP, LIPID, T7, URIC #### [facility] [address] [place] [address] Dr. Shabnam Rae Calcium [Mass/Vol] 9.5 mg/dL Normal 8.5-10.1 [facility] Comment on above: Performed By: #### T SH, CMP, LIPID, T7, URIC #### [facility] [address] [place] [address] Dr. Shabnam Rae Chloride [Moles/Vol] 102 mmol/L Normal 98-[address] [facility] Comment on above: Performed By: #### T SH, CMP, LIPID, T7, URIC #### [facility] [address] [place] [address] Dr. Shabnam Rae CO2 [Moles/Vol] 32.4 mmol/L Critically high 21.0-32.[address] [facility] Comment on above: Performed By: #### T SH, CMP, LIPID, T7, URIC #### [facility] [address] [place] [address] Dr. Shabnam Rae Creatinine [Mass/Vol] 1.00 mg/dL Normal 0.70-1.30 [facility] Comment on above: Performed By: #### T SH, CMP, LIPID, T7, URIC #### [facility] [address] [address] [address] Shabnam Rae EGFR-AF [place] >60 Normal >=60 [facility] Comment on above: Performed By: #### T SH, CMP, LIPID, T7, URIC #### [facility] [address] [address] [address] Shabnam Rae EGFR-NON AF [place] >60 Normal >=[address] [facility] Comment on above: Performed By: #### T SH, CMP, LIPID, T7, URIC #### [facility] [address] [address] [address] Shabnam Rae Globulin (S) [Mass/Vol] 3.8 g/dL Normal [facility] Comment on above: Performed By: #### T SH, CMP, LIPID, T7, URIC #### [facility] [address] [place] [address] Dr. Shabnam Rae Glucose [Mass/Vol] 94 mg/dL Normal 74-106 [facility] Comment on above: Performed By: #### T SH, CMP, LIPID, T7, URIC #### [facility] [address] [address] [address] Shabnam Rae Potassium [Moles/Vol] 3.5 mmol/L Normal 3.5-5.[address] [facility] Comment on above: Performed By: #### T SH, CMP, LIPID, T7, URIC #### [facility] [address] [address] [address] Shabnam Rae Protein [Mass/Vol] 7.9 g/dL Normal 6.4-8.2 [facility] Comment on above: Performed By: #### T SH, CMP, LIPID, T7, URIC #### [facility] [address] [place] [address] Dr. Shabnam Rae Sodium [Moles/Vol] 141 mmol/L Normal 136-145 [facility] Comment on above: Performed By: #### T SH, CMP, LIPID, T7, URIC #### [facility] [address] [place] [place] [address] Dr. Shabnam Rae Urea nitrogen [Mass/Vol] 15.0 mg/dL Normal 7.0-18.0 [facility] Comment on above: Performed By: #### T SH, CMP, LIPID, T7, URIC #### [facility] [address] [address] [address] Shabnam Rae Urea nitrogen/Creatinine [Mass ratio] 15.0 mg/mg Normal [facility] Comment on above: Performed By: #### T SH, CMP, LIPID, T7, URIC #### [facility] [address] [address] [address] Shabnam Rae TSHon 12-01-2022 TSH 1.504 uIU/mL Normal 0.358-3.740 [facility] Comment on above: Performed By: #### T SH, CMP, LIPID, T7, URIC #### [facility] [address] [address] [address] Shabnam Rae URIC ACID SERUMon 12-01-2022 Urate [Mass/Vol] 6.9 mg/dL Normal 3.5-7.2 [facility] Comment on above: Performed By: #### T SH, CMP, LIPID, T7, URIC #### [facility] [address] [address] [address] Shabnam Rae TESTOSTERONE, TOTALon 2021 Testosterone [Mass/Vol] 244 ng/dL Critically low 264-916 [facility] Comment on above: Result Comment: Adul t male reference interval is based on a population of healthy nonobese males (BMI <30) between 19 and 39 years old. Dima et.al. JCEM 2017,102;1771-9315. PMID: [id number]. Performed By: #### P SAFREE #### [facility] [address] [address] [address] Shabnam Rae TESTOSTERONE, FREE,DIRECT, T OTALon 03-16-2022 Free Testosterone(Direct) 2.1 pg/mL Critically low 7.2-24.0 [facility] Comment on above: Result Comment: Perf ormed at: BN Performed By: #### C VDTBH #### [facility] [address] [place], [place] [address] Dr. Shabnam Rae Testosterone [Mass/Vol] 252 ng/dL Critically low 264-[address] [facility] Comment on above: Result Comment: Adul t male reference interval is based on a population of healthy nonobese males (BMI <30) between 19 and 39 years old. adia Ch.al. JCEM 2017,102;2597-7979. PMID: [id number]. Performed at: CB Performed By: #### C VDTB #### [facility] [id number] Shabnam Rae Formson 02-26-2022 Forms [id number]#1. 00CD:127 Normal [facility] Screenson 02-26-2022 Screens [id number]. 00CD:127 Normal [facility] Screens [id number] 0CD:127 Normal [facility] Urology Office/Clinic Noteon 02-26-2022 Urology Office/Clinic [...] 02/25/2022 11:15:58. . Documentation recorded by the scribHelen ayala, accurately reflects the services(s) I performed and decisions made by me. Authenticated by Dr. Grullon on 02/26/2022 00:19:46. Problem List/Past Medical History Ongoing No qualifying data (more content not included)... Normal [facility] Comment on above: Result Comment: Elec tronically Signed By: Viola Grullon MD\.br\Date and Time Signed: 02/26/22 00:20 EDT\.br\Electronically Co-Signed By: Helen Leung\.br\Date and Time Co-Signed: 02/25/22 11:16 EDT Ambulatory Visit Summaryon 0 02-25-2022 Ambulatory Visit Summary MATTY GARCES :1970 Visit Date:02/25/2022 Ambulatory Visit Instructions Your Diagnosis Hydrocele Varicocele BPH without urinary obstruction Tests Performed Urnls Dip Stick Auto w/o Microscopy POC 12274 Your Care Team Attending Physician - Viola [...] Urnls Dip Stick Auto w/o Microscopy POC 72712 (02/25/2022) Bilirubin Urine Dipstick - Negative Blood Urine Dipstick - Negative Glucose Urine Dipstick - Negative Ketones Urine Dipstick - Negative Leukocytes Urine Dipstick - Negative Nitrite Urine Dipstick - Negative Protein Urine Dipstick - Negative Specific [place] Urine Dipstick - >=1.030 Urine Appearance Urine [...] the hydrocele for any changes. ? Take dghk-yid-wiszxtz and prescription medicines only as told by [...] (more content not included)... Normal [facility] Patient Educationon 02-26-20 Patient Education Urology [...] the hydrocele for any changes. ? Take hnpf-ewm-neuejvm and prescription medicines only as told by [...] 02/17/2011 Document Revised: 09/10/2018 Document Reviewed: 09/10/2018 [employer] Patient Education ? 2020 [employer] [facility] ED Note-Physicianon 02-04-20 ED Note-Physician [id number] .00CD:127 Normal [facility] RAD - Ultrasound Reporton RAD - Ultrasound Report [id number] 0CD:127 Normal [facility] RAD - CT Reporton 02-02-2022 RAD - CT Report [id number] .00CD:127 Normal [facility] RAD - CT Report [id number] .00CD:127 Normal [facility] CBC AUTO DIFFon 01-05-2022 BASO # 0.0 103/ul Normal 0.0-0.1 [facility] Comment on above: Performed By: #### P SAFREE #### [facility] [address] [place] [address] Dr. Shabnam Rae Basophils/100 WBC (Bld) 0.6 % Normal 0.2-2.0 [facility] Comment on above: Performed By: #### P SAFREE #### [facility] [address] [place] [address] Dr. Shabnam Rae EO # 0.1 103/ul Normal 0.0-0.7 [facility] Comment on above: Performed By: #### P SAFREE #### [facility] [address] [address] [address] Shabnam Rae Eosinophils/100 WBC (Bld) 2.1 % Normal 0.9-7.0 [facility] Comment on above: Performed By: #### P SAFREE #### [facility] [address] [place] [address] Dr. Shabnam Rae Erythrocyte distribution width (RBC) [Ratio] 13.1 % Normal 11.0-15.0 [facility] Comment on above: Performed By: #### P SAFREE #### [facility] [address] [place] [address] Dr. Shabnam Rae Hematocrit (Bld) [Volume fraction] 43.1 % Normal 42.0-54.0 [facility] Comment on above: Performed By: #### P SAFREE #### [facility] [address] [address] [address] Shabnam Rae Hemoglobin (Bld) [Mass/Vol] 13.7 g/dL Critically low 14.0-18.0 [facility] Comment on above: Performed By: #### P SAFREE #### [facility] [address] [address] [address] Shabnam Rae IG # 0.04 10e3/ul Critically high 0.00-0.03 [facility] Comment on above: Performed By: #### P SAFREE #### [facility] [address] [place] [address] Dr. Shabnam Rae IG % 0.6 % Critically high 0.0-0.[address] [facility] Comment on above: Performed By: #### P SAFREE #### [facility] [address] [place] [address] Dr. Shabnam Rae LYMPH # 0.9 103/ul Critically low 1.2-3.8 [facility] Comment on above: Performed By: #### P SAFREE #### [facility] [address] [place] [address] Dr. Shabnam Rae Lymphocytes/100 WBC (Bld) 13.1 % Critically low 20.5-60.[address] [facility] Comment on above: Performed By: #### P SAFREE #### [facility] [address] [place] [address] Dr. Shabnam Rae MANUAL DIFF REQ NO Normal [facility] Comment on above: Performed By: #### P SAFREE #### [facility] [address] [address] [address] Shabnam Rae MCH (RBC) [Entitic mass] 29.5 pg Normal 25.9-34.0 [facility] Comment on above: Performed By: #### P SAFREE #### [facility] [address] [place] [address] Dr. Shabnam Rae MCHC (RBC) [Mass/Vol] 31.8 g/dL Normal 29.9-35.[address] [facility] Comment on above: Performed By: #### P SAFREE #### [facility] [address] [place] [address] Dr. Shabnam Rae MCV (RBC) [Entitic vol] 92.9 fL Normal 80.0-94.[address] [facility] Comment on above: Performed By: #### P SAFREE #### [facility] [address] [place] [address] Dr. Shabnam Rae MONO # 0.4 103/ul Normal 0.3-0.[address] [facility] Comment on above: Performed By: #### P SAFREE #### [facility] [address] [place] [address] Dr. Shabnam Rae Monocytes/100 WBC (Bld) 5.4 % Normal 1.7-12.[address] [facility] Comment on above: Performed By: #### P SAFREE #### [facility] [address] [place] [address] Dr. Shabnam Rae NEUT # 5.2 103/ul Normal 1.4-6.[address] [facility] Comment on above: Performed By: #### P SAFREE #### [facility] [address] [place] [address] Dr. Shabnam Rae Neutrophils/100 WBC (Bld) 78.2 % Critically high 43.0-75.[address] [facility] Comment on above: Performed By: #### P SAFREE #### [facility] [address] [place] [address] Dr. Shabnam Rae Platelet mean volume (Bld) [Entitic vol] 10.9 fL Normal 9.5-13.[address] [facility] Comment on above: Performed By: #### P SAFREE #### [facility] [address] [place] [address] Dr. Shabnam Rae PLT 153 103/ul Normal 150-[address] [facility] Comment on above: Performed By: #### P SAFREE #### [facility] [address] [place] [address] Dr. Shabnam Rae RBC 4.64 106/ul Critically low 4.70-6.[address] [facility] Comment on above: Performed By: #### P SAFREE #### [facility] [address] [address] [address] Shabnam Rae WBC 6.6 103/ul Normal 4.0-11.0 [facility] Comment on above: Performed By: #### P SAFREE #### [facility] [address] [address] [address] Shabnam Rae CRPon 01-05-2022 CRP 0.9 mg/dL Normal <=1.0 [facility] Comment on above: Performed By: #### P SAFREE #### [facility] [address] [place] [address] Dr. Shabnam Rae PROF 14(COMP METB)on 022 Albumin [Mass/Vol] 3.6 g/dL Normal 3.4-5.0 [facility] Comment on above: Performed By: #### P SAFREE #### [facility] [address] [place] [address] Dr. Shabnam Rae Albumin/Globulin [Mass ratio] 1.0 {ratio} Normal [facility] Comment on above: Performed By: #### P SAFREE #### [facility] [address] [place] [address] Dr. Shabnam Rae ALP [Catalytic activity/Vol] 114 U/L Normal 46-[address] [facility] Comment on above: Performed By: #### P SAFREE #### [facility] [address] [place] [address] Dr. Shabnam Rae ALT [Catalytic activity/Vol] 26 U/L Normal 16-63 [facility] Comment on above: Performed By: #### P SAFREE #### [facility] [address] [place] [address] Dr. Shabnam Rae Anion gap [Moles/Vol] 9.3 mmol/L Normal [facility] Comment on above: Performed By: #### P SAFREE #### [facility] [address] [place] [address] Dr. Shabnam Rae AST [Catalytic activity/Vol] 19 U/L Normal 15-37 [facility] Comment on above: Performed By: #### P SAFREE #### [facility] [address] [place] [address] Dr. Shabnam Rae Bilirubin [Mass/Vol] 0.5 mg/dL Normal 0.2-1.0 [facility] Comment on above: Performed By: #### P SAFREE #### [facility] [address] [place] [address] Dr. Shabnam Rae Calcium [Mass/Vol] 8.9 mg/dL Normal 8.5-10.1 [facility] Comment on above: Performed By: #### P SAFREE #### [facility] [address] [place] [address] Dr. Shabnam Rae Chloride [Moles/Vol] 106 mmol/L Normal 98-107 [facility] Comment on above: Performed By: #### P SAFREE #### [facility] [address] [place] [address] Dr. Shabnam Rae CO2 [Moles/Vol] 30.7 mmol/L Normal 21.0-32.0 [facility] Comment on above: Performed By: #### P SAFREE #### [facility] [address] [place] [address] Dr. Shabnam Rae Creatinine [Mass/Vol] 1.15 mg/dL Normal 0.70-1.30 [facility] Comment on above: Performed By: #### P SAFREE #### [facility] [address] [place] [address] Dr. Shabnam Rae EGFR-AF [place] >60 Normal >=60 [facility] Comment on above: Performed By: #### P SAFREE #### [facility] [address] [place] [address] Dr. Shabnam Rae EGFR-NON AF [place] >60 Normal >=60 [facility] Comment on above: Performed By: #### P SAFREE #### [facility] [address] [place] [address] Dr. Shabnam Rae Globulin (S) [Mass/Vol] 3.6 g/dL Normal [facility] Comment on above: Performed By: #### P SAFREE #### [facility] [address] [place] [address] Dr. Shabnam Rae Glucose [Mass/Vol] 117 mg/dL Critically high 74-106 [facility] Comment on above: Performed By: #### P SAFREE #### [facility] [address] [place] [address] Dr. Shabnam Rae Potassium [Moles/Vol] 4.0 mmol/L Normal 3.5-5.1 [facility] Comment on above: Performed By: #### P SAFREE #### [facility] [address] [place] [address] Dr. Shabnam Rae Protein [Mass/Vol] 7.2 g/dL Normal 6.1-8.2 [facility] Comment on above: Performed By: #### P SAFREE #### [facility] [address] [place] [address] Dr. Shabnam Rae Sodium [Moles/Vol] 142 mmol/L Normal 136-145 [facility] Comment on above: Performed By: #### P SAFREE #### [facility] [address] [place] [address] Dr. Shabnam Rae Urea nitrogen [Mass/Vol] 15.0 mg/dL Normal 7.0-18.0 [facility] Comment on above: Performed By: #### P SAFREE #### [facility] [address] [place] [address] Dr. Shabnam Rae Urea nitrogen/Creatinine [Mass ratio] 13.0 mg/mg Normal [facility] Comment on above: Performed By: #### P SAFREE #### [facility] [address] [place] [address] Dr. Shabnam Rae US SCROTUMon 01-05-2022 US [...] ALVINA CAICEDO Date: 2022-01-05 08:48 [address] [facility] CBC AUTO DIFFon 01-04-2022 BASO # 0.1 103/ul Normal 0.0-0.1 [facility] Comment on above: Performed By: #### C BC #### [facility] [address] [place] [address] Dr. Shabnam Rae Basophils/100 WBC (Bld) 0.8 % Normal 0.2-2.0 [facility] Comment on above: Performed By: #### C BC #### [facility] [address] [place] [address] Dr. Shabnam Rae EO # 0.1 103/ul Normal 0.0-0.[address] [facility] Comment on above: Performed By: #### C BC #### [facility] [address] [place] [address] Dr. Shabnam Rae Eosinophils/100 WBC (Bld) 1.5 % Normal 0.9-7.0 [facility] Comment on above: Performed By: #### C BC #### [facility] [address] [place] [address] Dr. Shabnam Rae Erythrocyte distribution width (RBC) [Ratio] 12.8 % Normal 11.0-15.0 [facility] Comment on above: Performed By: #### C BC #### [facility] [address] [place] [address] Dr. Shabnam Rae Hematocrit (Bld) [Volume fraction] 40.3 % Critically low 42.0-54.0 [facility] Comment on above: Performed By: #### C BC #### [facility] [address] [place] [address] Dr. Shabnam Rae Hemoglobin (Bld) [Mass/Vol] 13.4 g/dL Critically low 14.0-18.0 [facility] Comment on above: Performed By: #### C BC #### [facility] [address] [place] [address] Dr. Shabnam Rae IG # 0.03 10e3/ul Normal 0.00-0.03 [facility] Comment on above: Performed By: #### C BC #### [facility] [address] [place] [address] Dr. Shabnam Rae IG % 0.5 % Normal 0.0-0.5 [facility] Comment on above: Performed By: #### C BC #### [facility] [address] [place] [address] Dr. Shabnam Rae LYMPH # 1.0 103/ul Critically low 1.2-3.8 [facility] Comment on above: Performed By: #### C BC #### [facility] [address] [place] [address] Dr. Shabnam Rae Lymphocytes/100 WBC (Bld) 16.4 % Critically low 20.5-60.0 [facility] Comment on above: Performed By: #### C BC #### [facility] [address] [place] [address] Dr. Shabnam Rae MANUAL DIFF REQ NO Normal [facility] Comment on above: Performed By: #### C BC #### [facility] [address] [place] [address] Dr. Shabnam Rae MCH (RBC) [Entitic mass] 29.5 pg Normal 25.9-34.0 [facility] Comment on above: Performed By: #### C BC #### [facility] [address] [place] [address] Dr. Shabnam Rae MCHC (RBC) [Mass/Vol] 33.3 g/dL Normal 29.9-35.2 [facility] Comment on above: Performed By: #### C BC #### [facility] [address] [place] [address] Dr. Shabnam Rae MCV (RBC) [Entitic vol] 88.8 fL Normal 80.0-94.0 [facility] Comment on above: Performed By: #### C BC #### [facility] [address] [place] [address] Dr. Shabnam Rae MONO # 0.6 103/ul Normal 0.3-0.[address] [facility] Comment on above: Performed By: #### C BC #### [facility] [address] [place] [address] Dr. Shabnam Rae Monocytes/100 WBC (Bld) 9.6 % Normal 1.7-12.0 [facility] Comment on above: Performed By: #### C BC #### [facility] [address] [place] [address] Dr. Shabnam Rae NEUT # 4.4 103/ul Normal 1.4-6.[address] [facility] Comment on above: Performed By: #### C BC #### [facility] [address] [place] [address] Dr. Shabnam Rae Neutrophils/100 WBC (Bld) 71.2 % Normal 43.0-75.[address] [facility] Comment on above: Performed By: #### C BC #### [facility] [address] [place] [address] Dr. Shabnam Rae Platelet mean volume (Bld) [Entitic vol] 10.8 fL Normal 9.5-13.[address] [facility] Comment on above: Performed By: #### C BC #### [facility] [address] [place] [address] Dr. Shabnam Rae PLT 158 103/ul Normal 150-450 [facility] Comment on above: Performed By: #### C BC #### [facility] [address], [place] [address] Dr. Shabnam Rae RBC 4.54 106/ul Critically low 4.70-6.10 [facility] Comment on above: Performed By: #### C BC #### [facility] [address] [place], [place] [address] Dr. Shabnam Rae WBC 6.2 103/ul Normal 4.0-11.0 [facility] Comment on above: Performed By: #### C BC #### [facility] [address] [place], [place] [address] ABD/PELV W CONon [...] MAYRA BERNAL Date: 2022-01-04 05:19 Normal [facility] CT PELVIS WO CONon 2 CT PELVIS WO CON EXAMINATION: CT PELV IS WO CON 01/04/2022 COMPARISON: CT of the [...] MANUEL HOUGH Date: 2022-01-04 08:54 Normal [facility] CULTURE URINEon 01-04-2022 CULTURE URINE Culture Observations : No growth Normal [facility] Comment on above: Performed By: #### P SASC #### [facility] [address] [address] [address] Shabnam Rae Covid-19 PCR ([facility])on 12-13 SARS-CoV-2 (COVID-19) RNA ELIJAH+probe Ql (Unsp spec) Not detected Normal NOT DETECTED [facility] [...] Administration (FDA). This test was developed by [employer], [place], [place]. The performance characteristics of this test were validated by [facility]. The results are not intended to be used as the sole means for clinical diagnosis or patient management decisions. [facility] is authorized under Clinical Laboratory [...] for this test is supported by the Sales Account Specialist of Health and Human Service's declaration that [...] used). Performed By: #### C VDTBH #### [facility] [address] [address] [address] Shabnam Rae ER URINE PROFILEon 2 Bilirubin Ql (U) Negative Normal NEGATIVE [facility] Comment on above: Performed By: #### P SASC #### [facility] [address] [place], [place] [address] Dr. Shabnam Rae Clarity (U) CLEAR Normal CLEAR [facility] Comment on above: Performed By: #### P SASC #### [facility] [address] [address] [address] Shabnam Rae Color (U) YELLOW Normal YELLOW [facility] Comment on above: Performed By: #### P SASC #### [facility] [address] [address] [address] Shabnam HERNANDEZ A micrscopic examination will be performed if indicated. Normal [facility] Comment on above: Performed By: #### P SASC #### [facility] [address] [address] [address] Shabnam Rae Glucose Ql (U) Negative Normal NEGATIVE [facility] Comment on above: Performed By: #### P SASC #### [facility] [address] [place] [address] Dr. Shabnam Rae Hemoglobin Ql (U) Negative Normal NEGATIVE [facility] Comment on above: Performed By: #### P SASC #### [facility] [address] [address] [address] Shabnam Rae Ketones Ql (U) Negative Normal NEGATIVE [facility] Comment on above: Performed By: #### P SASC #### [facility] [address] [address] [address] Shabnam Rae LEUKOCYTES Negative Normal NEGATIVE [facility] Comment on above: Performed By: #### P SASC #### [facility] [address] [address] [address] Shabnam Rae Nitrite Ql (U) Negative Normal NEGATIVE [facility] Comment on above: Performed By: #### P SASC #### [facility] [address] [address] [address] Shabnam Rae pH (U) 6.5 [pH] Normal 5-[address] [facility] Comment on above: Performed By: #### P SASC #### [facility] [address] [place] [address] Dr. Shabnam Rae SPEC GRAVITY 1.010 Normal 1.005-<=1.025 [facility] Comment on above: Performed By: #### P SASC #### [facility] [address] [address] [address] Shabnam Rae UA PROTEIN Negative Normal NEGATIVE/ TRACE [facility] Comment on above: Performed By: #### P SASC #### [facility] [address] [place] [address] Dr. Shabnam Rae UR MICRO IND NOT INDICATED Normal [facility] Comment on above: Performed By: #### P SASC #### [facility] [address] [place] [address] Dr. Shabnam Rae Urobilinogen Qn (U) 0.2 {Sarai'U}/dL Normal 0.2 - 1. 0 [facility] Comment on above: Performed By: #### P SASC #### [facility] [address] [place] [address] Dr. Shabnam Rae LACTATE/LACTIC ACIDon 2021 Lactate [Moles/Vol] 1.0 mmol/L Normal 0.4-2.0 [facility] Comment on above: Performed By: #### P SASC #### [facility] [address] [place] [address] Dr. Shabnam Rae PROF CHEM 8 (BAS METB)on Anion gap [Moles/Vol] 10.0 mmol/L Normal [facility] Comment on above: Performed By: #### B MP #### [facility] [address] [place] [address] Dr. Shabnam Rae Calcium [Mass/Vol] 8.5 mg/dL Normal 8.5-10.1 [facility] Comment on above: Performed By: #### B MP #### [facility] [address] [place] [address] Dr. Shabnam Rae Chloride [Moles/Vol] 103 mmol/L Normal 98-107 [facility] Comment on above: Performed By: #### B MP #### [facility] [address] [place] [address] Dr. Shabnam Rae CO2 [Moles/Vol] 29.2 mmol/L Normal 21.0-32.0 [facility] Comment on above: Performed By: #### B MP #### [facility] [address] [address] [address] Shabnam Rae Creatinine [Mass/Vol] 1.25 mg/dL Normal 0.70-1.30 [facility] Comment on above: Performed By: #### B MP #### [facility] [address] [address] [address] Shabnam Rae EGFR-AF [place] >60 Normal >=60 [facility] Comment on above: Performed By: #### B MP #### [facility] [address] [address] [address] Shabnam Rae EGFR-NON AF [place] >60 Normal >=60 [facility] Comment on above: Performed By: #### B MP #### [facility] [address] [place] [address] Dr. Shabnam Rae Glucose [Mass/Vol] 132 mg/dL Critically high 74-106 [facility] Comment on above: Performed By: #### B MP #### [facility] [address] [address] [address] Shabnam Rae Potassium [Moles/Vol] 3.2 mmol/L Critically low 3.5-5.1 [facility] Comment on above: Performed By: #### B MP #### [facility] [address] [place] [address] Dr. Shabnam Rae Sodium [Moles/Vol] 139 mmol/L Normal 136-145 [facility] Comment on above: Performed By: #### B MP #### [facility] [address] [address] [address] Shabnam Rae Urea nitrogen [Mass/Vol] 19.0 mg/dL Critically high 7.0-18.0 [facility] Comment on above: Performed By: #### B MP #### [facility] [address] [place] [address] Dr. Shabnam Rae Urea nitrogen/Creatinine [Mass ratio] 15.2 mg/mg Normal [facility] Comment on above: Performed By: #### B MP #### [facility] [address] [address] [address] Shabnam Rae CERVICAL SPINE 2 OR 3 VWSon 07-06-2019 CERVICAL SPINE 2 OR 3 VWS [facility] Department of Radiology [address] [place] [id number] ======== Patient Name: MATTY GARCES : 1970 Sex: M Age: Race: White Pt. Location: Patient Status: O Ordered Date: 07/06/2019 9:10:00 AM Completed Date: 07/06/2019 09:21 AM Requesting Provider: LUCIANO DAVIS Attending Provider: LUCIANO DAVIS Report Copy To: VENUS JAEGER Signs & Symptoms: M48.02 Spinal stenosis, cervical region I10 History: Althea Comments: , STAT READ , STAT READ , , , Ordering Provider - LUCIANO DAVIS MD , Exam: CERVICAL SPINE 2 OR 3 VWS ======== CERVICAL SPINE 2 OR 3 VWS 07/06/2019 9:21 AM EDT SIGNS AND SYMPTOMS: M48.02 Spinal stenosis, cervical region I10; neck and bilateral arm pain most recent surgery check hardware; , STAT READ , STAT READ , , , Ordering Provider - LUCIANO DAVIS MD , TECHNOLOGIST COMMENTS: neck and bilateral [...] findings. Electronically signed by:Bernice Hoyt. Transcribed by: [email or web address], User Resident: RADHA CHIN Electronically Signed by: BERNICE HOYT @ 07/06/2019 08:52 PM I personally read this/these film(s) with this resident Normal The [facility] Comment on above: Order Comment: , STA T READ , STAT READ , , , Ordering Provider - LUCIANO DAVIS MD , CERVICAL SPINE 2 OR 3 [facility] 04-06-2019 CERVICAL SPINE 2 OR 3 [facility] Department of Radiology [address] [place] [id number] ======== Patient Name: MATTY GARCES : 1970 Sex: M Age: Race: White Pt. Location: Patient Status: O Ordered Date: 04/06/2019 7:10:00 AM Completed Date: 04/06/2019 07:28 AM Requesting Provider: LUCIANO DAVIS Attending Provider: LUCIANO DAVIS Report Copy To: VENUS JAEGER Signs & Symptoms: CERVICAL DISC DISORDER, UNSPECIFIED CERVICAL REGION History: FAILED ALTHEA / ORDER SCANNED INTO RIS Comments: AP/LAT, ODONTOID PLEASE DO SWIMMER'S VIEW FOLLOW UP HARDWARE AND ALIGNMENT, S/P ACDF, RECENT FALLS Exam: CERVICAL SPINE 2 OR 3 S ======== CERVICAL SPINE 2 OR 3 S 04/06/2019 [...] study. Electronically signed by:Bernice Hoyt. Transcribed by: [email or web address], User Resident: Electronically Signed by: BERNICE HOYT @ 04/06/2019 04:40 PM Normal [facility] Comment on above: Order Comment: AP/LA T, ODONTOID PLEASE DO SWIMMER'S VIEW FOLLOW UP HARDWARE AND ALIGNMENT, S/P ACDF, RECENT FALLS CERVICAL SPINE 2 OR 3 [facility] 02-17-2019 CERVICAL SPINE 2 OR 3 [facility] Department of Radiology [address] [place] [id number] ======== Patient Name: MATTY GARCES : 1970 Sex: M Age: Race: White Pt. Location: Patient Status: D Ordered Date: 02/17/2019 8:50:00 AM Completed Date: 02/17/2019 09:02 AM Requesting Provider: LUCIANO DAVIS Attending Provider: LUCIANO DAVIS Report Copy To: VENUS JAEGER Signs & Symptoms: CERVICALGIA History: FAILED ALTHEA ORDER / SCANNED INTO RIS Comments: C-SPINE 2 OR 3 VIEW POSTOP, EVALUATION HARDWARE AN ALIGNMENT Exam: CERVICAL SPINE 2 OR 3 VWS ======== CERVICAL SPINE 2 OR 3 VWS 02/17/2019 [...] removal of C6-7 ACDF plate. Approved by:Florentino Duval on 02/17/2019 6:24 PM EDT. I, Bella King, have reviewed the images and report and concur with these findings. Electronically signed by:Bella King. Transcribed by: [email or web address], User Resident: KENNETH DUVAL Electronically Signed by: BELLA KING @ 02/20/2019 11:53 AM I personally read this/these film(s) with this resident Normal [facility] Comment on above: Order Comment: C-SPI NE 2 OR 3 VIEW POSTOP, EVALUATION HARDWARE AN ALIGNMENT BASIC METABOLIC PANELon 05-2 Calcium [Mass/Vol] 9.2 mg/dL Normal 8.6-10.3 [facility] Comment on above: Order Comment: No: D o not add to previous draw Performed By: #### 5 0103 #### [facility] [address] [place] [address], [facility] Chloride [Moles/Vol] 101 mmol/L Normal 98-107 [facility] Comment on above: Order Comment: No: D o not add to previous draw Performed By: #### 5 0103 #### [facility] [address] [place] [address], [place] CO2 [Moles/Vol] 26 mmol/L Normal 21-31 [facility] Comment on above: Order Comment: No: D o not add to previous draw Performed By: #### 5 0103 #### [facility] [address] [place] [address], [facility] Creatinine [Mass/Vol] 1.02 mg/dL Normal 0.70-1.30 [facility] Comment on above: Order Comment: No: D o not add to previous draw Performed By: #### 5 0103 #### [facility] [address] [place] [address], [place] GFR/1.73 sq M predicted among blacks MDRD (S/P/Bld) [Vol rate/Area] mL/min/{1.73_m2} Normal >60 [facility] Comment on above: Order Comment: No: D o not add to previous draw Performed By: #### 5 0103 #### [facility] [address] [place] [address], [place] GFR/1.73 sq M predicted among non-blacks MDRD (S/P/Bld) [Vol rate/Area] mL/min/{1.73_m2} Normal >60 [facility] Comment on above: Order Comment: No: D o not add to previous draw Performed By: #### 5 0103 #### [facility] [address] [place] [address], [place] Glucose [Mass/Vol] 124 mg/dL High 70-100 [facility] Comment on above: Order Comment: No: D o not add to previous draw Performed By: #### 5 0103 #### [facility] [address] [place] [address], [place] Potassium [Moles/Vol] 3.9 mmol/L Normal 3.5-5.1 [facility] Comment on above: Order Comment: No: D o not add to previous draw Performed By: #### 5 0103 #### [facility] [address] [place] [address], [place] Sodium [Moles/Vol] 137 mmol/L Normal 136-145 [facility] Comment on above: Order Comment: No: D o not add to previous draw Performed By: #### 5 0103 #### [facility] [address] [place] [address], [place] Urea nitrogen [Mass/Vol] 15 mg/dL Normal 7-25 [facility] Comment on above: Order Comment: No: D o not add to previous draw Performed By: #### 5 0103 #### [facility] [address] [place] [address], [place] CBC COMPLETE BLOOD COUNTon - Erythrocyte distribution width (RBC) [Ratio] 13.9 % Normal 11.5-15.0 [facility] Comment on above: Order Comment: No: D o not add to previous draw Performed By: #### 5 0103 #### [facility] [address] [place] [id number], [facility] Hematocrit (Bld) [Volume fraction] 50.0 % Normal 39.0-50.0 [facility] Comment on above: Order Comment: No: D o not add to previous draw Performed By: #### 5 0103 #### [facility] [address] [place] [id number], [facility] Hemoglobin (Bld) [Mass/Vol] 16.0 g/dL Normal 13.0-17.0 [facility] Comment on above: Order Comment: No: D o not add to previous draw Performed By: #### 5 0103 #### [facility] [address] [facility] [place] [id number], [facility] MCH (RBC) [Entitic mass] 27.5 pg Normal 27.0-33.0 [facility] Comment on above: Order Comment: No: D o not add to previous draw Performed By: #### 5 0103 #### [facility] [address] [place] [address], [facility] MCHC (RBC) [Mass/Vol] 32.0 g/dL Normal 32.0-35.0 [facility] Comment on above: Order Comment: No: D o not add to previous draw Performed By: #### 5 0103 #### [facility] [address] [facility] [place] [address], [facility] MCV (RBC) [Entitic vol] 85.9 fL Normal 82.0-98.0 [facility] Comment on above: Order Comment: No: D o not add to previous draw Performed By: #### 5 0103 #### [facility] [address] [place] [id number], [facility] Nucleated RBC/100 WBC (Bld) [Ratio] 0 % Normal 0-0 [facility] Comment on above: Order Comment: No: D o not add to previous draw Performed By: #### 5 0103 #### [facility] [address] PLAT CNT 249 10*3/uL Normal 150-400 The [facility] Comment on above: Order Comment: No: D o not add to previous draw Performed By: #### 5 0103 #### [facility] [address] RBC (Bld) [#/Vol] 5.82 10*6/uL High 4.20-5.70 [facility] Comment on above: Order Comment: No: D o not add to previous draw Performed By: #### 5 0103 #### [facility] [address] WBC (Bld) [#/Vol] 15.85 10*3/uL High 4.00-10.60 [facility] Comment on above: Order Comment: No: D o not add to previous draw Performed By: #### 5 0103 #### [facility] [address] Operative Reporton 9 Operative Report MR#: [id number] I [facility] Pt. Name: Matty Garces Room #: 5CD [id number] Discharge Date: Birthdate: 1970 OPERATIVE REPORT DATE OF SURGERY: 01/30/2019 SURGEON: Luciano Davis M.D. 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 POSTOPERATIVE DIAGNOSIS: Failed instrumentation at C6-7 on the right. RUBBER AND POUNDER: ADENIKE Lugo. ANESTHESIA: Endotracheal, Hogan. PROCEDURES: Redo [...] in usual fashion. Electronically Signed by: Luciano Davis M.D. 02/02/2019 04:44 P Luciano Davis M.D. Date Dict: 01/30/2019/04:52 P/Luciano Davis M.D. Date Trans: 01/31/2019 02:31 A/mmo [id number] cc: Venus Jaeger M.D. [address], [place] [address] Normal [facility] CERVICAL SPINE 2 OR 3 VWSon 01-30-2019 CERVICAL SPINE 2 OR 3 VWS [facility] Department of Radiology [address] [place] [phone] ======== Patient Name: MATTY GARCES : 1970 Sex: M Age: Race: White Pt. Location: Patient Status: O Ordered Date: 01/30/2019 7:05:00 AM Completed Date: 01/30/2019 04:12 PM Requesting Provider: LUCIANO DAVIS Attending Provider: LUCIANO DAVIS Report Copy To: Signs & Symptoms: C6-7 ACDF History: C6-7 ACDF Comments: C6-7 ACDF Exam: CERVICAL SPINE 2 OR 3 VWS ======== CERVICAL SPINE 2 OR 3 VWS 01/30/2019 [...] documentation Electronically signed by:Justus Murphy. Transcribed by: [email or web address], User Resident: Electronically Signed by: JUSTUS MURPHY @ 01/30/2019 04:18 PM Normal [facility] Comment on above: Order Comment: C6-7 ACDF POC GLUCOSE LABon 01-30-2019 Glucose [Mass/Vol] 106 mg/dL High 70-100 [facility] on above: Performed By: #### 5 0103 #### [facility] [address] *MRSA/MSSA DNA NASALon 01-23 *MRSA/MSSA DNA NASAL Clinical Report: (D ) Specimen: NASAL SWAB Collected: 01/23/2019 15:02 Status: Final Last Updated: 01/23/2019 20:14 MSSA DNA (Final) Methicillin Susceptible Staphylococcus aureus DNA Detected MRSA DNA (Final) No Methicillin Resistant Staphylococcus aureus DNA Detected Normal [facility] Comment on above: Performed By: #### 5 0103 #### [facility] [address] APTTon 01-23-2019 aPTT Coag (Bld) [Time] 35.4 s High 25.0-35.0 [facility] Comment on above: Result Comment: ALL [...] THIS PURPOSE. Performed By: #### 5 7307, 32301 #### [facility] [address] [place] [address], [facility] BASIC METABOLIC PANELon 01-11 Calcium [Mass/Vol] 9.5 mg/dL Normal 8.6-10.3 [facility] Comment on above: Performed By: #### 5 7307, 77252 #### [facility] [address] [place] [address], [place] Chloride [Moles/Vol] 101 mmol/L Normal 98-107 [facility] Comment on above: Performed By: #### 5 7307, 74843 #### [facility] [address] [place] [address], [place] CO2 [Moles/Vol] 29 mmol/L Normal 21-31 [facility] Comment on above: Performed By: #### 5 73, 96626 #### [facility] [address] [place] [address], [place] Creatinine [Mass/Vol] 1.08 mg/dL Normal 0.70-1.30 [facility] Comment on above: Performed By: #### 5 73, 84466 #### [facility] [address] [place] [address], [place] GFR/1.73 sq M predicted among blacks MDRD (S/P/Bld) [Vol rate/Area] mL/min/{1.73_m2} Normal >60 [facility] Comment on above: Performed By: #### 5 7307, 00730 #### [facility] [address] [place] [address], [place] GFR/1.73 sq M predicted among non-blacks MDRD (S/P/Bld) [Vol rate/Area] mL/min/{1.73_m2} Normal >60 [facility] Comment on above: Performed By: #### 5 7307, 15940 #### [facility] [address] [place] [address], [place] Glucose [Mass/Vol] 87 mg/dL Normal 70-100 [facility] Comment on above: Performed By: #### 5 7307, 88408 #### [facility] [address] [place] [address], [place] Potassium [Moles/Vol] 4.0 mmol/L Normal 3.5-5.1 [facility] Comment on above: Performed By: #### 5 7307, 12870 #### [facility] [address] Sodium [Moles/Vol] 137 mmol/L Normal 136-145 [facility] Comment on above: Performed By: #### 5 7307, 06490 #### [facility] [address] [facility]. [address] Urea nitrogen [Mass/Vol] 12 mg/dL Normal 7-25 [facility] Comment on above: Performed By: #### 5 7307, 38870 #### [facility] [address] CBC W/DIFFon 01-23-2019 ABS BASOPHILS 0.1 10*3/uL Normal 0.0-0.2 The [facility] Comment on above: Performed By: #### 5 7307, 08235 #### [facility] [address] ABS IMM GRANS 0.0 10*3/uL Normal 0.0-0.2 The [facility] Comment on above: Performed By: #### 5 7307, 97933 #### [facility] [address] ABS NEUTROPHILS 5.3 10*3/uL Normal 1.6-7.6 The [facility] Comment on above: Performed By: #### 5 7307, 75476 #### [facility] [address] [facility]. [address] Basophils/100 WBC (Bld) 0.9 % Normal 0.0-1.0 [facility] Comment on above: Performed By: #### 5 7307, 96427 #### [facility] [address] [place] [address], [facility] Eosinophils (Bld) [#/Vol] 0.2 10*3/uL Normal 0.0-0.5 [facility] Comment on above: Performed By: #### 5 7306, 24821 #### [facility] [address] [place] [address], [facility] Eosinophils/100 WBC (Bld) 2.3 % Normal 0.0-6.0 [facility] Comment on above: Performed By: #### 5 7306, 47739 #### [facility] [address] Erythrocyte distribution width (RBC) [Ratio] 13.8 % Normal 11.5-15.0 [facility] Comment on above: Performed By: #### 5 7306, 81521 #### [facility] [address] [facility] [address] Hematocrit (Bld) [Volume fraction] 49.6 % Normal 39.0-50.0 [facility] Comment on above: Performed By: #### 5 7306, 49623 #### [facility] [address] [facility] Hemoglobin (Bld) [Mass/Vol] 16.4 g/dL Normal 13.0-17.0 [facility] Comment on above: Performed By: #### 5 7306, 25709 #### [facility] [address] [place] [address], [facility] IMMATURE GRANS 0.5 % Normal 0.0-1.0 The [facility] Comment on above: Performed By: #### 5 7306, 07118 #### [facility] [address] [place] [address], [facility] Lymphocytes (Bld) [#/Vol] 1.2 10*3/uL Normal 1.2-4.0 [facility] Comment on above: Performed By: #### 5 7306, 57485 #### [facility] [address] [place] [address], [facility] Lymphocytes/100 WBC (Bld) 16.6 % Low 20.0-45.0 [facility] Comment on above: Performed By: #### 5 7306, 68145 #### [facility] [address] [place] [id number], [facility] MCH (RBC) [Entitic mass] 27.8 pg Normal 27.0-33.0 [facility] Comment on above: Performed By: #### 5 7306, 36728 #### [facility] [address] [place] [address], [facility] MCHC (RBC) [Mass/Vol] 33.1 g/dL Normal 32.0-35.0 [facility] Comment on above: Performed By: #### 5 7306, 73283 #### [facility] [address] [facility] [place] [address], [facility] MCV (RBC) [Entitic vol] 84.2 fL Normal 82.0-98.0 [facility] Comment on above: Performed By: #### 5 7306, 35307 #### [facility] [address] [place] [address], [facility] Monocytes (Bld) [#/Vol] 0.7 10*3/uL Normal 0.1-1.0 [facility] Comment on above: Performed By: #### 5 7306, 31907 #### [facility] [address] [facility] [place] [address], [facility] MONOS 9.4 % Normal 5.0-12.0 [facility] Comment on above: Performed By: #### 5 7306, 17931 #### [facility] [address] [place] [id number], [facility] Neutrophils/100 WBC (Bld) 70.3 % Normal 40.0-72.0 [facility] Comment on above: Performed By: #### 5 7306, 12905 #### [facility] [address] [facility]. [address] Nucleated RBC/100 WBC (Bld) [Ratio] 0 % Normal 0-0 [facility] Comment on above: Performed By: #### 5 7307, 39159 #### [facility] [address] [place] [address], [facility] PLAT CNT 235 10*3/uL Normal 150-400 The [facility] Comment on above: Performed By: #### 5 7307, 22323 #### [facility] [address] [place] [address], [facility] RBC (Bld) [#/Vol] 5.89 10*6/uL High 4.20-5.70 [facility] Comment on above: Performed By: #### 5 7307, 33430 #### [facility] [address] [place] [address], [facility] WBC (Bld) [#/Vol] 7.48 10*3/uL Normal 4.00-10.60 [facility] Comment on above: Performed By: #### 5 7307, 16110 #### [facility] [address] PROTHROMBIN TIMEon 9 INR Coag (PPP) [Relative time] 1.12 {INR} Normal 0.91-1.16 [facility] Comment on above: Result Comment: ACCC [...] CHEST 1995;108:231S-246S. Performed By: #### 5 7307, 68923 #### [facility] [address] [facility] [address] PT Coag (PPP) [Time] 14.4 s Normal 12.3-14.8 [facility] Comment on above: Result Comment: ALL RESULTS MUST BE INTERPRETED WITH RESPECT TO BLOOD DRAWING ARTIFACT OR DILUTION ERROR OF ANTICOAGULANT AT THE TIME OF SAMPLING. Performed By: #### 5 7307, 24758 #### [facility] [address] [facility] TYPE AND SCREENon 01-23-2019 ABO INTERPRETATION A Normal [facility] Comment on above: Performed By: #### 5 7307, 84884 #### [facility] [address] [facility] RH INTERPRETATION Positive Normal [facility] Comment on above: Performed By: #### 5 7307, 28522 #### [facility] [address] [facility] 3D CERVICAL SPINE WO CONT RASTon 01-12-2019 CT 3D CERVICAL SPINE WO CONTRAST [facility] Department of Radiology [address] [place] [address] ======== Patient Name: MATTY GARCES : 1970 Sex: M Age: Race: White Pt. Location: 85 Patient Status: D Ordered Date: 01/10/2019 2:15:00 PM Completed Date: 01/12/2019 10:32 AM Requesting Provider: LUCIANO DAVIS Attending Provider: LUCIANO DAVIS Report Copy To: VENUS JAEGER Signs & Symptoms: M48.02 Spinal stenosis, cervical region I10 History: Althea para auth # [id number] 01/10/19-02/09/19 [id number] *er Comments: Exam: CT 3D CERVICAL SPINE WO CONTRAST ======== CT 3D CERVICAL SPINE WO CONTRAST 01/12/2019 [...] C6-C7 level is incomplete Electronically signed by:Ten Uriarte. Transcribed by: [email or web address], User Resident: Electronically Signed by: TEN URIARTE @ 01/13/2019 09:18 AM [facility] CERVICAL SPINE 2 OR 3 [facility] 01-05-2019 CERVICAL SPINE 2 OR 3 [facility] Department of Radiology [address] [place] [id number] ======== Patient Name: MATTY GARCES : 1970 Sex: M Age: Race: White Pt. Location: Patient Status: O Ordered Date: 01/05/2019 9:00:00 AM Completed Date: 01/05/2019 09:06 AM Requesting Provider: LUCIANO DAVIS Attending Provider: LUCIANO DAVIS Report Copy To: Signs & Symptoms: M48.02 Spinal stenosis, cervical region I10 History: [place] Comments: , , , Ordering Provider - LUCIANO DAVIS MD , Exam: CERVICAL SPINE 2 OR 3 S ======== CERVICAL SPINE 2 OR 3 [facility] 01/05/2019 9:06 AM EDT SIGNS AND SYMPTOMS: M48.02 Spinal stenosis, cervical region I10 TECHNOLOGIST COMMENTS: neck pain, left side worse, surgery this past august QUESTION FOR THE RADIOLOGIST: , , , Ordering Provider - LUCIANO DAVIS MD , PROTOCOLS: AP, Odontoid and Lateral [...] on 01/05/2019 11:53 AM EDT. I, Ten Uriarte, have reviewed the images and report and concur with these findings. Electronically signed by:Ten Uriarte. Transcribed by: [email or web address], User Resident: SHELLY DELA CRUZ Electronically Signed by: TEN URIARTE @ 01/05/2019 12:37 PM I personally read this/these film(s) with this resident Normal [facility] Comment on above: Order Comment: , , = ========= , Ordering Provider - LUCIANO DAVIS MD , CERVICAL SPINE 2 OR 3 [facility] 08-30-2018 CERVICAL SPINE 2 OR 3 [facility] Department of Radiology [address] [place] [id number] ======== Patient Name: MATTY GARCES : 1970 Sex: M Age: Race: White Pt. Location: Patient Status: O Ordered Date: 08/30/2018 9:35:00 AM Completed Date: 08/30/2018 09:43 AM Requesting Provider: LUCIANO DAVIS Attending Provider: LUCIANO DAVIS Report Copy To: VENUS JAEGER Signs & Symptoms: M50.90 Cervical disc disorder, unsp, unspecified cervical region I10 History: [place] Comments: , POST OP XRAY AP/LAT ONLY , POST OP XRAY AP/LAT ONLY , , , Ordering Provider - LUCIANO DAVIS MD , Exam: CERVICAL SPINE 2 OR 3 [facility] ======== CERVICAL SPINE 2 OR 3 [facility] 08/30/2018 9:43 AM EST SIGNS AND SYMPTOMS: M50.90 Cervical disc disorder, unsp, unspecified cervical region I10 TECHNOLOGIST COMMENTS: pt states having neck surgery on 08-17-18 QUESTION FOR THE RADIOLOGIST: , POST OP XRAY AP/LAT ONLY , POST OP XRAY AP/LAT ONLY , , , Ordering Provider - LUCIANO DAVIS MD , PROTOCOLS: AP, Odontoid and Lateral [...] of the prevertebral soft tissues. Approved by:Ryan Anderson on 08/30/2018 2:29 PM EST. I, Bella King, have reviewed the images and report and concur with these findings. Electronically signed by:Bella King. Transcribed by: [email or web address], User Resident: RYAN ANDERSON Electronically Signed by: BELLA KING @ 08/30/2018 05:45 PM I personally read this/these film(s) with this resident Normal [facility] Comment on above: Order Comment: , POS T OP XRAY AP/LAT ONLY , POST OP XRAY AP/LAT ONLY , , , Ordering Provider - LUCIANO DAVIS MD , Operative Reporton 8 Operative Report MR#: [id number] I [facility] Pt. Name: Matty Garces Room #: [id number] Discharge Date: Birthdate: 1970 OPERATIVE REPORT DATE OF SURGERY: 08/17/2018 SURGEON: Luciano Davis M.D. PREOPERATIVE DIAGNOSIS: Herniated cervical disk at C6-7. POSTOPERATIVE DIAGNOSIS: Herniated cervical disk at C6-7. RUBBER AND POUNDER: ADENIKE Larios. ANESTHESIA: Endotracheal, Braida. PROCEDURE: Anterior [...] tolerated the procedure. Electronically Signed by: Luciano Davis M.D. 08/22/2018 06:34 A Luciano Davis M.D. Date Dict: 08/17/2018/12:31 P/Luciano Davis M.D. Date Trans: 08/17/2018 11:25 P/sasha [id number] cc: Venus Jaeger M.D. [address] [place] [address] Normal [facility] CERVICAL SPINE 2 OR 3 [facility] 08-17-2018 CERVICAL SPINE 2 OR 3 S [facility] Department of Radiology [address] [place] [id number] ======== Patient Name: MATTY GARCES : 1970 Sex: M Age: Race: White Pt. Location: Patient Status: I Ordered Date: 08/17/2018 8:30:00 AM Completed Date: 08/17/2018 11:49 AM Requesting Provider: LUCIANO DAVIS Attending Provider: LUCIANO DAVIS Report Copy To: Signs & Symptoms: C6-7 ACDF with History: C6-7 ACDF with Comments: C6-7 ACDF with Exam: CERVICAL SPINE 2 OR 3 [facility] ======== CERVICAL SPINE 2 OR 3 [facility] 08/17/2018 11:49 AM EST SIGNS AND [...] seconds of fluoroscopy time utilized by Dr. Davis. Approved by:Florentino Duval on 08/17/2018 11:57 AM EST. I, Bernice Hoyt, have reviewed the images and report and concur with these findings. Electronically signed by:Bernice Hoyt. Transcribed by: [email or web address], User Resident: KENNETH DUVAL Electronically Signed by: BERNICE HOYT @ 08/18/2018 01:06 PM I personally read this/these film(s) with this resident Normal [facility] Comment on above: Order Comment: C6-7 ACDF with POC GLUCOSE LABon 08-17-2018 Glucose [Mass/Vol] 113 mg/dL High 70-100 [facility] Comment on above: Performed By: #### 8 [id number] #### [facility] [address] [place] [address], [facility] RBC'S 2 UNITSon 08-17-2018 CROSSMATCH INTERP 1 COMP Normal [facility] Comment on above: Performed By: #### 8 6002 #### [facility] [address] [place] [address], [facility] CROSSMATCH INTERP 2 COMP Normal [facility] Comment on above: Performed By: #### 8 6002 #### [facility] [address] [place] [address], [facility] PRODUCT CODE [address] [facility] Comment on above: Performed By: #### 8 6002 #### [facility] [address] [place] [address], [place] PRODUCT CODE 2 E0336 Normal [facility] Comment on above: Performed By: #### 8 6002 #### [facility] [address] [place] [address], [facility] PRODUCT STATUS 1 RE Normal [facility] Comment on above: Result Comment: Resu lt changed by IF on 08/20/2018 07:48. The previous value was XM. Performed By: #### 8 6002 #### [facility] [address] [place] [address], [facility] PRODUCT STATUS 2 RE Normal [facility] Comment on above: Result Comment: Resu lt changed by IF on 08/20/2018 07:48. The previous value was XM. Performed By: #### 8 6002 #### [facility] [address] UNIT ABO 1 A Normal [facility] Comment on above: Performed By: #### 8 6002 #### [facility] [address] [facility] [address] UNIT ABO 2 A Normal [facility] Comment on above: Performed By: #### 8 6002 #### [facility] [address] UNIT ID 1 [id number] Normal [facility] Comment on above: Performed By: #### 8 6002 #### [facility] [address] [facility] UNIT ID 2 [id number] Normal [facility] Comment on above: Performed By: #### 8 6002 #### [facility] [address] [facility] [place] [address], [facility] UNIT RH 1 Positive Normal [facility] Comment on above: Performed By: #### 8 6002 #### [facility] [address] [place] [address], [facility] UNIT RH 2 Positive Normal [facility] Comment on above: Performed By: #### 8 6002 #### [facility] [address] [facility] *MRSA/MSSA CULTUREon 08-02- 018 *MRSA/MSSA CULTURE Clinical Report: (D) Specimen: NASAL SWAB Collected: 08/02/2018 12:37 Status: Final Last Updated: 08/03/2018 14:26 ISO (Final) No Methicillin Resistant Staphylococcus aureus Isolated (MRSA) ISO (Final) Methicillin Sensitive Staphylococcus aureus (MSSA) Isolated Normal [facility] Comment on above: Performed By: #### 3 1302 #### [facility] [address] [place] [address], [facility] APTTon 08-02-2018 aPTT Coag (Bld) [Time] 31.2 s Normal 25.0-35.0 [facility] Comment on above: Result Comment: ALL RESULTS [...] THIS PURPOSE. Performed By: #### 5 7307, 74211 #### [facility] [address] [place] [address], [facility] BASIC METABOLIC PANELon 07-15 Calcium [Mass/Vol] 9.4 mg/dL Normal 8.6-10.3 [facility] Comment on above: Performed By: #### 0 0071 #### [facility] [address] [facility] [place] [address], [facility] Chloride [Moles/Vol] 103 mmol/L Normal 98-107 [facility] Comment on above: Performed By: #### 0 0071 #### [facility] [address] [facility] [place] [address], [place] CO2 [Moles/Vol] 29 mmol/L Normal 21-31 [facility] Comment on above: Performed By: #### 0 0071 #### [facility] [address] [place] [address], [facility] Creatinine [Mass/Vol] 1.06 mg/dL Normal 0.70-1.30 [facility] Comment on above: Performed By: #### 0 0071 #### [facility] [address] [place] [address], [place] GFR/1.73 sq M predicted among blacks MDRD (S/P/Bld) [Vol rate/Area] mL/min/{1.73_m2} Normal >60 [facility] Comment on above: Performed By: #### 0 0071 #### [facility] [address] [place] [address], [place] GFR/1.73 sq M predicted among non-blacks MDRD (S/P/Bld) [Vol rate/Area] mL/min/{1.73_m2} Normal >60 [facility] Comment on above: Performed By: #### 0 0071 #### [facility] [address] [place] [address], [place] Glucose [Mass/Vol] 84 mg/dL Normal 70-100 [facility] Comment on above: Performed By: #### 0 0071 #### [facility] [address] [place] [address], [place] Potassium [Moles/Vol] 4.0 mmol/L Normal 3.5-5.1 [facility] Comment on above: Performed By: #### 0 0071 #### [facility] [address] [place] [address], [place] Sodium [Moles/Vol] 140 mmol/L Normal 136-145 [facility] Comment on above: Performed By: #### 0 0071 #### [facility] [address] [place] [address], [place] Urea nitrogen [Mass/Vol] 20 mg/dL Normal 7-25 [facility] Comment on above: Performed By: #### 0 0071 #### [facility] [address] [place] [address], [place] CBC W/DIFFon 11-20-2018 ABS BASOPHILS 0.1 10*3/uL Normal 0.0-0.2 [facility] Comment on above: Performed By: #### 5 0103 #### [facility] [address] [facility] [place] [address], [facility] ABS IMM GRANS 0.1 10*3/uL Normal 0.0-0.2 [facility] Comment on above: Performed By: #### 5 0103 #### [facility] [address] [place] [address], [facility] ABS NEUTROPHILS 4.2 10*3/uL Normal 1.6-7.6 [facility] Comment on above: Performed By: #### 5 0103 #### [facility] [address] Basophils/100 WBC (Bld) 1.3 % High 0.0-1.0 [facility] Comment on above: Performed By: #### 5 0103 #### [facility] [address] [place] [address], [facility] Eosinophils (Bld) [#/Vol] 0.1 10*3/uL Normal 0.0-0.5 [facility] Comment on above: Performed By: #### 5 0103 #### [facility] [address] [place] [address], [facility] Eosinophils/100 WBC (Bld) 2.0 % Normal 0.0-6.0 [facility] Comment on above: Performed By: #### 5 0103 #### [facility] [address] Erythrocyte distribution width (RBC) [Ratio] 13.6 % Normal 11.5-15.0 [facility] Comment on above: Performed By: #### 5 0103 #### [facility] [address] [place] [address], [facility] Hematocrit (Bld) [Volume fraction] 44.3 % Normal 39.0-50.0 [facility] Comment on above: Performed By: #### 5 0103 #### [facility] [address] [facility] [place] [address], [facility] Hemoglobin (Bld) [Mass/Vol] 15.1 g/dL Normal 13.0-17.0 [facility] Comment on above: Performed By: #### 5 0103 #### [facility] [address] [facility] [place] [address], [facility] IMMATURE GRANS 1.1 % High 0.0-1.0 [facility] Comment on above: Performed By: #### 5 0103 #### [facility] [address] [facility] Lymphocytes (Bld) [#/Vol] 1.2 10*3/uL Normal 1.2-4.0 [facility] Comment on above: Performed By: #### 5 0103 #### [facility] [address] [place] [address], [facility] Lymphocytes/100 WBC (Bld) 18.3 % Low 20.0-45.0 [facility] Comment on above: Performed By: #### 5 0103 #### [facility] [address] [place] [address], [facility] MCH (RBC) [Entitic mass] 29.0 pg Normal 27.0-33.0 [facility] Comment on above: Performed By: #### 5 0103 #### [facility] [address] [facility] [place] [address], [facility] MCHC (RBC) [Mass/Vol] 34.1 g/dL Normal 32.0-35.0 [facility] Comment on above: Performed By: #### 5 3 #### [facility] [address] [facility] [place] [address], [facility] MCV (RBC) [Entitic vol] 85.0 fL Normal 82.0-98.0 [facility] Comment on above: Performed By: #### 5 0103 #### [facility] [address] [place] [address], [facility] Monocytes (Bld) [#/Vol] 0.7 10*3/uL Normal 0.1-1.0 [facility] Comment on above: Performed By: #### 5 0103 #### [facility] [address] [place] [address], [facility] MONOS 11.1 % Normal 5.0-12.0 [facility] Comment on above: Performed By: #### 5 0103 #### [facility] [address] [place] [address], [facility] Neutrophils/100 WBC (Bld) 66.2 % Normal 40.0-72.0 [facility] Comment on above: Performed By: #### 5 3 #### [facility] [address] [facility] [place] [address], [facility] Nucleated RBC/100 WBC (Bld) [Ratio] 0 % Normal 0-0 [facility] Comment on above: Performed By: #### 5 102 #### [facility] [address] [place] [address], [facility] PLAT CNT 179 10*3/uL Normal 150-400 [facility] Comment on above: Performed By: #### 3 #### [facility] [address] [place] [address], [facility] RBC (Bld) [#/Vol] 5.21 10*6/uL Normal 4.20-5.70 [facility] Comment on above: Performed By: #### 102 #### [facility] [address] [place] [address], [place] WBC (Bld) [#/Vol] 6.39 10*3/uL Normal 4.00-10.60 [facility] Comment on above: Performed By: #### 5 0103 #### [id number] [place] [address] CERVICAL SPINE 4 OR 5 VIEWSo n 08-02-2018 CERVICAL SPINE 4 OR 5 VIEWS [facility] Department of Radiology [address] [place] [phone] ======== Patient Name: MATTY GARCES : 1970 Sex: M Age: Race: White Pt. Location: Patient Status: D Ordered Date: 08/02/2018 1:05:00 PM Completed Date: 08/02/2018 01:29 PM Requesting Provider: LUCIANO DAVIS Attending Provider: LUCIANO DAVIS Report Copy To: VENUS JAEGER Signs & Symptoms: Z01.89 Encounter for other specified special examinations I10 History: [place] Comments: , PREOP XRAY AP/LAT \EANDE\ FLEX/EX , PREOP XRAY AP/LAT \EANDE\ FLEX/EX , , , Ordering Provider - LUCIANO DAVIS MD , Exam: CERVICAL SPINE 4 OR 5 VIEWS ======== CERVICAL SPINE 4 OR 5 VIEWS 08/02/2018 [...] in alignment or hardware complication. Approved by:Florentino Duval on 08/02/2018 5:59 PM EST. I, Bella King, have reviewed the images and report and concur with these findings. Electronically signed by:Bella King. Transcribed by: [email or web address], User Resident: KENNETH DUVAL Electronically Signed by: BELLA KING @ 08/03/2018 11:58 AM I personally read this/these film(s) with this resident Normal [facility] Comment on above: Order Comment: , PRE OP XRAY AP/LAT \EANDE\ FLEX/EX , PREOP XRAY AP/LAT \EANDE\ FLEX/EX , , , Ordering Provider - LUCIANO DAVIS MD , PROTHROMBIN TIMEon 8 INR Coag (PPP) [Relative time] 1.15 {INR} Normal 0.91-1.16 [facility] Comment on above: Result Comment: ACCC [...] CHEST 1995;108:231S-246S. Performed By: #### 5 7307, 18454 #### [facility] [address] PT Coag (PPP) [Time] 14.7 s Normal 12.3-14.8 [facility] Comment on above: Result Comment: ALL RESULTS MUST BE INTERPRETED WITH RESPECT TO BLOOD DRAWING ARTIFACT OR DILUTION ERROR OF ANTICOAGULANT AT THE TIME OF SAMPLING. Performed By: #### 5 7307, [id number] #### [facility] [address] [facility] [address] TYPE AND SCREENon 08-02-2018 ABO INTERPRETATION A Normal [facility] Comment on above: Order Comment: 2 uni ts 2 units 2 units 2 units 2 units Performed By: #### 6 2586 #### [facility] [address] [place] [address], [facility] RH INTERPRETATION Positive Normal [facility] Comment on above: Order Comment: 2 uni ts 2 units 2 units 2 units 2 units Performed By: #### 6 2586 #### [facility] [address] [facility] [place], [place] [id number] [place] [address] URINALYSIS REFLEXon 08-02-20 18 Appearance (U) CLEAR Normal CLEAR [facility] Comment on above: Performed By: #### 3 0965 #### [facility] [address] [facility] [place] [address], [facility] Bilirubin [Mass/Vol] Negative Normal NEGATIVE [facility] Comment on above: Performed By: #### 3 0965 #### [facility] [address] [place] [address], [facility] BLOOD Negative Normal NEGATIVE [facility] Comment on above: Performed By: #### 3 0965 #### [facility] [address] [place] [address], [facility] Color (U) YELLOW Normal YELLOW [facility] Comment on above: Performed By: #### 3 0965 #### [facility] [address] [place] [address], [facility] Glucose [Mass/Vol] 150 mg/dL Abnormal NEGATIVE [facility] Comment on above: Performed By: #### 3 0965 #### [facility] [address] [facility] [place] [address], [facility] KETONE Negative Normal NEGATIVE [facility] Comment on above: Performed By: #### 3 0965 #### [facility] [address] [facility] [place] [address], [facility] [place] Negative Normal NEGATIVE [facility] Comment on above: Performed By: #### 3 0965 #### [facility] [address] [place] [address], [facility] MICRO NOT DONE negative chemical reactions unless requested in original order Normal [facility] Comment on above: Performed By: #### 3 0965 #### [facility] [address] [facility] [place] [address], [facility] Nitrite Ql (U) Negative Normal NEGATIVE [facility] Comment on above: Performed By: #### 3 0965 #### [facility] [address] [place] [address], [facility] pH (Bld) 5.0 Normal 5.0-8.0 [facility] Comment on above: Performed By: #### 3 0965 #### [facility] [address] [place] [address], [facility] Protein (U) [Mass/Vol] Negative Normal NEGATIVE The [facility] Comment on above: Performed By: #### [id number] #### [facility] [address] SPEC GRAV 1.024 High 1.015-1.020 The [facility] Comment on above: Performed By: #### [id number] #### [facility] [address] Vital Signs Date Time Vital Sign Value Performing Clinician Facility 07-03-2024 14:45-0400 Body height 188 cm Rubén Geiger MD Work Phone: [facility] 07-03-2024 14:45-0400 Body mass index (BMI) [Ratio] 37.62 kg/m2 Rubén Geiger MD Work Phone: [facility] 07-03-2024 14:45-0400 Body weight 132.9 kg Rubén Geiger MD Work Phone: [facility] 02-25-2022 10:30-0400 Blood Pressure Location Viola Lue [facility] 02-25-2022 10:30-0400 Diastolic blood pressure 107 mm[Hg] Viola Lue [facility] 02-25-2022 10:30-0400 Heart rate 74 /min Viola Lue [facility] 02-25-2022 10:30-0400 Respiratory rate 16 /min Viola Lue [facility] 02-25-2022 10:30-0400 Systolic blood pressure 157 mm[Hg] Viola Lue [facility] Encounters Encounter Date Encounter Type Care Provider Facility Start: 10-02-2024 End: 10-02-2024 Refill Marianna Sheehan [facility] Comment on above: Excessive daytime sl eepiness; Obstructive sleep apnea Start: 09-28-2024 Evaluation and management of inpatient MARIANNA SUAREZ [facility] Start: 09-25-2024 Evaluation and management of inpatient MARILOU TOMLIN [facility] Start: 09-25-2024 Evaluation and management of inpatient [facility] Start: 09-24-2024 Evaluation and management of inpatient [facility] Start: 09-24-2024 Evaluation and management of inpatient SANDRINE HAHN [facility] Start: 09-24-2024 Evaluation and management of inpatient [facility] Start: 09-23-2024 Emergency department patient visit [facility] Start: 09-23-2024 Emergency department patient visit [facility] Start: 09-23-2024 Emergency department patient visit [facility] Start: 09-23-2024 End: 09-28-2024 Evaluation and management of inpatient SERA WAYNE [facility] Start: 09-21-2024 End: 09-21-2024 [facility] Work Phone: Start: 09-21-2024 End: 09-21-2024 Departed Referred Trey Vallejo DPM Work Phone: [facility] Start: 07-04-2024 End: 07-05-2024 Telephone encounter Rubén Geiger MD Work Phone: [facility] Start: 07-03-2024 End: 07-03-2024 Office outpatient visit 25 minutes Rubén Geiger MD Work Phone: [facility] Comment on above: Excessive daytime sl eepiness (Primary Dx); Obstructive sleep apnea; Primary insomnia; Cubital tunnel syndrome on right Start: 07-03-2024 End: 07-03-2024 ambulatory RUBÉN GEIGER Not Available Start: 07-03-2024 End: 07-03-2024 Joshuaboo flowsheet Rubén Geiger MD Work Phone: [facility] Start: 07-03-2024 End: 07-03-2024 Bamboo flowsheet Rubén Geiger MD Work Phone: [facility] Start: 05-10-2024 End: 05-11-2024 Refill Rubén Geiger MD Work Phone: [facility] Comment on above: Primary insomnia Start: 03-27-2024 End: 03-27-2024 ambulatory RUBÉN GEIGER Not Available Start: 01-10-2024 End: 01-10-2024 ambulatory VALENCIA Rio APLING Not Available Start: 01-03-2024 End: 01-03-2024 ambulatory Trey Smith [facility] Work Phone: Start: 01-03-2024 End: 01-03-2024 Departed Referred DPM Trey [facility] Work Phone: [facility] Start: 12-29-2023 End: 12-29-2023 ambulatory RUBÉN GEIGER Not Available Start: 11-29-2023 End: 11-30-2023 ambulatory Diallo Beauchamp MD Facility:[facility] Start: 10-18-2023 End: 10-19-2023 ambulatory Diallo Beauchamp MD Facility: [facility] Start: 09-27-2023 End: 09-27-2023 ambulatory RUBÉN GEIGER Not Available Start: 08-30-2023 End: 08-31-2023 ambulatory Diallo Beauchamp MD Facility: [facility] Start: 07-12-2023 End: 07-13-2023 ambulatory Diallo Beauchamp MD Facility:[facility] Start: 06-14-2023 End: 06-15-2023 ambulatory Diallo Beauchamp MD Facility:[facility] Start: 12-06-2022 End: 12-06-[address] VENUS JAEGER . Facility: Start: 12-05-2022 Encounter for genera l adult medical examination without abnormal findings DR VENUS JAEGER . [facility] Start: 12-01-2022 End: 12-02-[address] VENUS JAEGER . Facility: Start: 12-01-2022 End: 12-02-2022 Encounter for general adult medical examination without abnormal findings DR VENUS JAEGER . Facility:[facility] Start: 07-10-2022 End: 07-11-[address] VENUS JAEGER . Facility: Start: 03-26-2022 End: 03-26-[address] VENUS JAEGER . Facility: Start: 03-13-2022 End: 03-14-[address] VENUS JAEEGR . Facility: Start: 02-25-2022 End: 02-25-2022 Patient encounter procedure Viola Grullon [facility] Start: 01-04-2022 End: 01-05-[address] VENUS JAEGER . Facility: Start: 01-30-2019 End: 02-01-2019 Evaluation and management of inpatient PROVIDER UNKNOWN Facility:[facility] Start: 08-17-2018 End: 08-18-2018 Patient encounter procedure PROVIDER UNKNOWN Facility:[facility] Procedures Date Procedure Procedure Detail Performing Clinician Start: 12-01-[address] FRANKLIN JAEGER . Comment on above: Performed By: #### P [facility] #### [facility] [address] [place] [address] Dr. Shabnam Rae Start: 01-30-2019 FUSION CERV JT W INT BD FUS DEV, ANT APPR A COL, OPEN AZEDINE [facility] Start: 01-30-2019 REMOVAL OF INT FIX F ROM CERVCAL VERTEBRA, OPEN APPROACH AZ[facility] Start: 01-23-2019 Antibody screen PROVIDE R UNKNOWN Comment on above: Performed By: #### [id number] #### [facility] [address] Start: 08-17-2018 ANESTH SPINE CORD SURGERY [...] By: #### [id number] #### [facility] [address] Start: 02-08-1998 H/O: vasectomy History of vasectomy Rubén Geiger MD Work Phone: Colonoscopy Viola Grullon Hemorrhoids (disorder) Viola Lue Hernia of abdominal cavity (disorder) Viola Lue Tonsillectomy Viola Lufrance Plan of Treatment Date Care Activity Detail Author Start: 10-04-2024 End: 10-04-2024 Patient encounter procedure 10/04/2024 2:20 PM EST Office Visit [facility] [address] [facility] [address] [place] [address] Rubén Geiger MD [address] [facility] [address] Knight [address] [place] [address] [id number] [facility] Start: 09-21-2024 Superficial Wound Culture Superficial Wound Culture [facility] Start: 07-03-2024 End: 07-03-2024 Patient encounter procedure [facility] Comment on above: Arrived Start: 05-14-2024 Influenza vaccination Influenza Vacc ine (#1) [facility] Start: 1970 Screening for malign ant neoplasm of colon [facility] Bacteria identified in Unspecified specimen by Aerobe culture [facility] Immunizations Immunization Date Immunization Notes Care Provider Fa eli 07-06-2023 influenza virus vacc ine, unspecified formulation Rubén Geiger MD Work Phone: [facility] Healthcare Payers Date Payer Category Payer Self-pay [id number] 2022 Medicaid [id number] 2022 Medicaid [id number] 2022 Unknown 1970 Unknown [id number] 2.16.8 40.1.174164.3.579.2.647 1970 Unknown [id number] 2.16.8 40.1.133774.3.579.2.647 1970 Unknown [id number] 2.16.84 0.1.356327.3.579.2.593 1970 Unknown [id number] 2.16.84 0.1.460965.3.579.2.593 1969 Unknown [id number] 2.16.84 0.1.759755.3.579.2.593 1969 Unknown [id number] 2.16.84 0.1.214350.3.579.2.593 1969 Unknown [id number] 2.16.84 0.1.188813.3.579.2.593 1969 Unknown [id number] 2.16.84 0.1.652896.3.579.2.593 1969 Unknown [id number] 2.16. 840.1.084946.3.579.2.196 1969 Unknown [id number] 2.16. 840.1.649577.3.579.2.196 1969 Unknown [id number] 2.16. 840.1.087359.3.579.2.196 1969 Unknown [id number] 2.16. 840.1.491706.3.579.2.196 1969 Unknown [id number] 2.16. 840.1.855367.3.579.2.196 1969 Unknown [id number] 2.16.84 0.1.465802.3.579.2.1259 1969 Unknown [id number] 2.16.84 0.1.836127.3.579.2.1259 1969 Unknown [id number] 2.16.84 0.1.926239.3.579.2.9 1969 Unknown [id number] 2.16.84 0.1.280173.3.579.2.1259 1969 Unknown [id number] 2.16.84 0.1.904786.3.579.2.1259 1969 Unknown [id number] 2.16.84 0.1.918865.3.579.2.1259 1959 Unknown [id number] Unknown [id number] Unknown [id number] 2.16.8 40.1.757262.3.579.2.531 Unknown [id number] 2.16.8 40.1.485088.3.579.2.531 Social History Date Type Detail Facility Tobacco smoking status No Smokin g Status Entered [facility] Start: 03-27-2024 End: 07-03-2024 Sex Assigned At Male [facility] Start: 05-15-2018 End: 05-15-2018 Tobacco smoking status INIS Ex-smoker (finding) [facility] Start: 1970 Sex Assigned At Male [facility] Start: 03-11-2023 [facility] Start: 03-11-2023 Tobacco use and exposure Smokeless tobacco non-user [facility] Start: 03-27-2024 End: 07-03-2024 Alcoholic beverage intake Ex-drinker (finding) [facility] Start: 03-27-2024 End: 07-03-2024 History of Social function [facility] Start: 1970 Sex assigned at Not on file N [facility] Start: 09-22-2024 Sex Male (finding) [facility] Functional Status Date Assessment Result Facility 02-25-2022 Functional Status N/A [facility] Clinical Notes 02-25-2022 to 10-02-2024 Telephone Encounter - Marianna Sheehan LPN - 10/02/2024 2:19 PM ESTTelephone Encounter - Marianna Sheehan LPN - 10/02/2024 2:19 PM ESTTelephone Encounter - Nita Anthony - 07/04/2024 4:10 PM EDT Note Date & Type Note Facility 10-02-2024 Telephone encounter Note Provigil refill request to [facility] sent to provider. Last appt. 07/03/24 [facility] 10-02-2024 Miscellaneous Notes Provigil refill request to [facility] sent to provider. Last appt. 07/03/24 documented in this encounter [facility] 09-28-2024 Note Trauma team informed at approximately 1730 per [facility] that patient went into a-flutter and sustained for approximately 2 hours from approximately [phone]. Trauma team ordered a STAT ECG and inpatient consultation to cardiology, Discharge orders were rescinded with plan for patient to stay one additional night for cardiology evaluation. This plan was discussed with patient with and son in room. Patient denies a history of arrhythmia including a-flutter and states that he would like to leave tonight AMA. Complications of this and other arrhythmias were discussed with patient and family in room including but not limited to heart attack, stroke, and . Patient note understanding with the risks associated with an untreated arrhythmia and still state that he wants to leave CHASIDY vega paperwork reviewed and signed [facility] 09-28-2024 Note 09/28/24 1537 Home Oxygen Therapy Evaluation Pulse Oximetry on room air at Rest 94 Pulse Ox on room air while walking 96 Patient Qualification for home oxygen Does not qualify for home oxygen this visit (When pt is sleeping, apnea is noted and at times saturation drops but when pt is awake and moving his oxygenation is stable) [facility] 09-28-2024 Note [facility] Trauma Surgery Progress Note Subjective Patient was seen resting comfortably in bed this morning. He reports pain in right leg is well controlled on current regimen. Patient has been able to ambulate to the bathroom with assistance. He denies numbness, tingling, loss of movement/significant weakness of RLE. Patient denies chest pain, SOB, NVD, constipation. Objective Vitals: BP: (128-146)/(78-90) 144/79 (09/28 1199) Systolic BP Percentile: -- Diastolic BP Percentile: -- Temp: [36.5 ???C (97.7 ???F)-37 ???C (98.6 ???F)] 36.5 ???C (97.7 ???F) (09/28 1199) Temp Source: Temporal (09/28 1199) Heart Rate: [75-102] 75 (09/28 1199) Resp: [12-26] 25 (09/28 1199) SpO2: [95 %-100 %] 95 % (09/28 1199) Height: -- Weight: [135 kg (296 lb 15.4 oz)] 135 kg (296 lb 15.4 oz) (09/28 353) Amo Coma Scale Score: 15 FiO2 (%): [50 %] 50 % Intake/Output Summary (Last 24 hours) at 09/28/2024 1527 Last data filed at 09/28/2024 1400 Gross per 24 hour Intake 480 ml Output 1750 ml Net -1270 ml Physical Exam: General: Awake, Alert, No acute distress Head: Normocephalic And Atraumatic. Eyes: EOMI. Atraumatic Neurologic: Alert And Oriented X3. Moving Extremities And Following Commands. Lungs: Clear To Auscultation Bilaterally With Normal Work Of Breathing On Room Air Chest Wall: Chest Rise Symmetrical. Heart: RRR. Normal S1/S2. No Obvious Murmurs Abdomen: Soft, Mildly tender to palpation in LLQ , And Nondistended With Normoactive Bowel Sounds. No Guarding, Non-Peritoneal Extremities: ALVARO wrap present on RLE. No Gross Deformities. Pulse, Motor, And Sensation Intact Bilaterally Skin: Warm And Dry. Normal For Ethnicity Psych: Friendly, Cooperative Labs: Recent Results (from the past 12 hour(s)) Basic metabolic panel Collection Time: 09/28/24 3:58 AM Result Value Ref Range Sodium 135 (L) 136 - 145 mmol/L Potassium 4.3 3.5 - 5.1 mmol/L Chloride 98 98 - 107 mmol/L CO2 34 (H) 21 - 31 mmol/L BUN 20 7 - 25 mg/dL Creatinine 0.92 0.70 - 1.30 mg/dL Glucose 99 70 - 100 mg/dL Calcium 9.6 8.6 - 10.3 mg/dL Anion Gap 7 7 - 20 mmol/L eGFR 98.9 >60.0 mL/min/1.73m*2 BUN/Creatinine Ratio 21.7 CBC Collection Time: 09/28/24 3:58 AM Result Value Ref Range Auto WBC 10.65 (H) 4.00 - 10.60 10*3/uL RBC 5.17 4.20 - 5.70 10*6/uL Hemoglobin 13.7 13.0 - 17.0 g/dL Hematocrit 44.4 39.0 - 55.0 % MCV 85.9 82.0 - 98.0 fL MCH 26.5 (L) 27.0 - 33.0 pg MCHC 30.9 (L) 32.0 - 35.0 g/dL RDW 15.3 (H) 11.5 - 15.0 % Platelets 208 150 - 400 10*3/uL Magnesium Collection Time: 09/28/24 3:58 AM Result Value Ref Range Magnesium 2.0 1.9 - 2.7 mg/dL Phosphorus Collection Time: 09/28/24 3:58 AM Result Value Ref Range Phosphorus 3.3 2.5 - 5.0 mg/dL Radiologic studies: No X-ray results found for the past [address] results found for the past 24 hours No MRI results found for the past 24 hours EKG: Encounter Date: 09/23/24 ECG 12 lead Result Value Ventricular Rate 82 Atrial Rate 82 AL Interval 164 QRS DURATION 92 QT Interval 386 QTC CALCULATION(BAZETT) 450 P Cavalier 61 R-Cavalier 18 T Wave Cavalier 69 Impression Normal sinus rhythm Normal ECG When compared with ECG of 23-SEP-2024 14:15, No significant change was found Confirmed by Fabian RAM, JESSICA Carr ([id number]) on 09/24/2024 10:24:43 PM Assessment The patient is a 53 y.o. year old male who presented as a trauma following Fall and sustained the following injuries. Catalogue of Injuries #Fall, Syncope #Comminuted right tib/fib fracture Incidental findings #Enlarged right hilar node #Enlarged prostate Medical issues #CHF #HTN #Hypomagnesemia #Obstructive sleep apnea #Morbid obesity Plan Neuro: -Neuro checks q4hrs -Pain control multimodal with acetaminophen, gabapentin, robaxin, and PRN roxicodone. CV: Syncopal workup -Telemetry monitoring -Echo, carotids ordered for syncopal workup. Both negative for acute findings. Respiratory: Possible sleep apnea - Keep SpO2 above 92% - Incentive spirometry every 1 hour while awake - CPAP at night, Patient still refusing, pulmonary navigator consultation FEN/GI: -Check daily labs, replace electrolytes as appropriate -Diet: Regular -GI: PO Pantoprazole (GERD) -Bowel regimen: Scheduled breanna-colace and glycolax : -Is and Os q4hrs MSK: Right tib/fib fracture -Activity: WBAT RLE per ortho -PT/OT eval and treat -Ortho consultation for right comminuted tib/fib fracture. Went to OR 09/24 for fixation. Prophylaxis: -Bowel regimen: Scheduled dulcolax and miralax -DVT: SCDs, Lovenox 40 mg BID Other: -CODE STATUS: Full Dispo: -Medically clear for discharge. -Patient requesting discharge home with C, PT/OT recommending walker, commode, and rolling wheelchair. [facility] 09-28-2024 Note Physical Therapy Physical Therapy Treatment Patient Name: Matty Garces : 1970 Today's Date: 09/28/2024 Time Calculation Start Time 1358 Stop Time 1453 Time Calculation (min) 55 min PT Therapeutic Procedures Time Entry Therapeutic Activity Time Entry 27 Co-tx with LATHAM to facilitate purposeful activity, 2/2 high fall risk, impaired act tolerance, & increased burden of assist for transfers & functional ambulation; To maintain safety of patient & staff. Patient Active Problem List Diagnosis Non-ischemic cardiomyopathy (CMS/HCC) Diastolic dysfunction with chronic heart failure (CMS/HCC) Benign hypertensive cardiomyopathy with heart failure (CMS/HCC) Chronic combined systolic and diastolic congestive heart failure, NYHA class 2 (CMS/HCC) Fall at home, initial encounter Closed fracture of right fibula and tibia HTN (hypertension) PATEL (obstructive sleep apnea) Gastroesophageal reflux disease Obese 09/28/24 1359 PT Last Visit PT Received On 09/28/24 General Family/Caregiver Present No Subjective My head is hurting. (Nursing reported pt ok for therapy. Pt in bed, agreeable.) Activity Tolerance Endurance Stage II Stage II (METs 1.4-2.0) - Sitting 10-20 mins Number of Rest Breaks 2 Activity Tolerance Comments Pt performed bed mobility, unsupported sitting EOB, self care tasks, AROM, transfers, prolonged standing, and ambulation with moderate increase in fatigue. Precautions LE Weight Bearing Status Right;WBAT;Left;PWB heel weight bearing (L)LE; pt does not maintain. Has offloading shoe Medical Precautions fall risk, telemetry, bed/chair alarm, supplemental O2 PRN Post-Surgical Precautions R closed reduction and IMN on 09/24/24; WBAT Pain Assessment Pain Assessment Pt c/o head and (R)LE pain, did not rate Cognition Arousal/Alertness Appropriate responses to stimuli Orientation Level Oriented X4 Following Commands Follows one step commands with increased time;Follows one step commands with repetition Safety Judgment Decreased awareness of need for safety;Decreased awareness of need for assistance Awareness of Errors Decreased awareness of errors;Assistance required to identify errors made;Assistance required to correct errors made Attention Span Attends with cues to redirect Problem Solving Assistance required to identify errors made;Assistance required to generate solutions Cognition Comments Patient pleasant and cooperative Patient did require significant cues throughout session for attention to task, redirecting, and promoting increased safety awareness. Slurred speech at times. General Assessment Skin Integrity ALVARO wrap to (R)LE, dressing to L great toe Static Sitting Balance Static Sitting-Balance Support Feet supported Static Sitting-Level of Assistance Distant supervision Static Sitting-Comment/Number of Minutes Supervision for safety during unsupported sitting EOB due to impulsive behavior and mild unsteadiness. Dynamic Sitting Balance Dynamic Sitting-Balance Support Feet supported;Unilateral upper extremity supported Dynamic Sitting Balance-Level of Assistance Close supervision Dynamic Sitting-Comments SBA for safety during scooting, positioning, and self care tasks while seated unsupported EOB and commode due to impaired awareness and mild unsteadiness. Static Standing Balance Static Standing-Balance Support With device;Left upper extremity supported;Right upper extremity supported Static Standing-Level of Assistance Minimum assistance Static Standing-Comment/Number of Minutes CGA -> min assist to maintain balance during standing with and without UE support Dynamic Standing Balance Dynamic Standing-Balance Support With device;Left upper extremity supported;Right upper extremity supported Dynamic Standing Balance-Level of Assistance Minimum assistance Dynamic Standing-Comments min assist x 1 and SBA x 1 for safety during functional mobility and self care tasks with RW for support due to unsteadiness, difficulty maintaining weight bearing precautions, and impulsive behavior. Ambulation Ambulation Yes Ambulation 1 Comments/Distance (ft) 1 Pt ambulated ~14' with RW for support, min assist x 1 and SBA x 1 to ensure balance and safety. Max cues for technique with fair carry over. Unsteadiness throughout, difficulty maintaining weight bearing restrictions despite cues. Slow pace, increased pain (R)LE. Unable to safely increase distance. Stairs Stairs No Bed Mobility Bed Mobility Yes Bed Mobility 1 Bed Mobility Comments 1 Supine to sit to (R) performed with min assist and cues. Transfers Transfer Yes Transfer 1 Trials/Comments 1 Sit to stand from elevated EOB, recliner, and commode performed with min assist x 1 and CGA x 1 for lift, balance, and RW management. Increased time, effort, and cues required. Transfers 2 Trials/Comments 2 Stand to sit to EOB, commode, and recliner (more content not included)... [facility] 09-28-2024 Note Occupational Therapy Occupational Therapy Treatment Patient Name: Matty Garces : 1970 Today's Date: 09/28/2024 09/28/24 1358 Time Calculation Start Time 1358 Stop Time 1453 (co-tx) Time Calculation (min) 55 min OT Therapeutic Procedures Time Entry Self Care/Home Management (ADLs) Time Entry 28 Problem List Patient Active Problem List Diagnosis Non-ischemic cardiomyopathy (CMS/HCC) Diastolic dysfunction with chronic heart failure (CMS/HCC) Benign hypertensive cardiomyopathy with heart failure (CMS/HCC) Chronic combined systolic and diastolic congestive heart failure, NYHA class 2 (CMS/HCC) Fall at home, initial encounter Closed fracture of right fibula and tibia HTN (hypertension) PATEL (obstructive sleep apnea) Gastroesophageal reflux disease Obese Co-tx with ADULT AND PEDIATRIC NEUROLOGIST to facilitate purposeful activity, 2/2 high fall risk, impaired dyn standing balance & act tolerance, poor safety awareness, & poor safety awareness with STS, transfers, & functional ambulation; To maintain safety of patient & staff. 09/28/24 1358 OT Last Visit OT Received On 09/28/24 General Subjective I got my w/c 3rd hand...from my [id number]. Treatment Duration (min) 55 Minutes Response to Previous Treatment Patient reporting fatigue but able to participate Family/Caregiver Present No Precautions LE Weight Bearing Status Right;WBAT;Left;PWB (heel weight bearing L/LE; pt does not maintain. Has offloading shoe) Medical Precautions fall risk, telemetry, bed/chair alarm Pain Assessment Pain Assessment (Pt reported headache, but did not quantify) Cognition Overall Cognitive Status Impaired Arousal/Alertness Appropriate responses to stimuli Orientation Level Oriented X4 Following Commands Follows one step commands with increased time;Follows one step commands with repetition Safety Judgment Decreased awareness of need for assistance;Impulsive;Decreased awareness of need for safety Awareness of Errors Decreased awareness of errors Deficits Decreased awareness of deficits Attention Span Attends with cues to redirect Problem Solving Assistance required to identify errors made;Assistance required to generate solutions Communication (Pt's speech slurred during session, repetition required for comprehension.) Cognition Comments Pt cooperative during session, & required significant cues throughout session for attention to task, redirecting, continuation, & safety awareness. Pt does not maintain precs. General Assessment Hearing mild [place] Skin Integrity ALVARO wrap to RLE, DFU to L great toe Grooming Grooming Level of Assistance Setup Grooming Where Assessed Other (Comment) (sitting on BSC) Grooming Comments to complete facial care & oral care with cues for continuation, 2/2 perseverance. UE Bathing UE Bathing Level of Assistance Setup UE Bathing Where Assessed Other (Comment) ([facility]) UE Bathing Comments to complete 100% UBB sitting on [facility]. Cues for continuation, 2/2 perseveration. LE Bathing LE Bathing Level of Assistance Contact guard LE Bathing Where Assessed Other (Comment) ([facility]) LE Bathing Comments BLEs bathed sitting on [facility]; Pt stood with device for breanna-hygiene & required CGA to maintain balance. UE Dressing UE Dressing Level of Assistance Setup UE Dressing Where Assessed Sitting in chair UE Dressing Comments to don gown Toileting Toileting Level of Assistance Contact guard Where Assessed Bedside commode Toileting Comments CGA during breanna-care post BM, standing at [facility]. Unsteadiness present. Static Sitting Balance Static Sitting-Balance Support Feet supported Static Sitting-Level of Assistance Distant supervision Static Sitting-Comment/Number of Minutes Supervision for safety Dynamic Sitting Balance Dynamic Sitting-Balance Support Feet supported;Unilateral upper extremity supported Dynamic Sitting Balance-Level of Assistance Close supervision Dynamic Sitting-Comments SBA for safety scooting EOB, positioning on [facility] Static Standing Balance Static Standing-Balance Support With device;Right upper extremity supported;Left upper extremity supported Static Standing-Level of Assistance Contact guard Static Standing-Comment/Number of Minutes CGA for safety standing with RW, 2/2 unsteaadiness. Dynamic Standing Balance Dynamic Standing-Balance Support With device;Right upper extremity supported;Left upper extremity supported;Unilateral upper extremity supported Dynamic Standing Balance-Level of Assistance Minimum assistance;Close supervision Dynamic Standing-Comments CGA during breanna-care & hygiene in stance at [facility] with RW. Add'l SBA for safety. Pt very unsteady with poor awareness. CGA during functional ambulation with device. Cues for safety awareness, & maintaining WB precs. Bed Mobility 1 Bed Mobility From 1 Supine Bed Mobility Type 1 To Bed Mobility to 1 Short sit Level of Assistance 1 Close superv (more content not included)... [facility] 09-28-2024 Note Called [facility] by phone to check on status of pt's DME (wheelchair, walker, bedside commode). Was advised they did not receive it [facility] and would need it direct faxed to [phone]. Faxed referral and was advised they will only be able to provide manual wheelchair and bedside commode as Medicaid only approves 1 mobility device each 5 years and it would benefit pt to use it on more expensive item. Was also advised his wheelchair might require a pre-cert. Met with pt and updated him on above info. Asked pt whether he would be able to have family assist him home while waiting on wheelchair to be approved but he doesn't think he will be able to but gave consent to call . UPDATE 3:05PM- Spoke with [facility] again and was advised the wheelchair could take up to 2 weeks to be approved by insurance but they would plan on delivering the DME to pt's house. Spoke with [facility] by phone and advised her the pt had adamantly refused rehab prior and asked whether she felt comfortable w/ pt returning home w/ their old wheelchair which apparently has a wobbly wheel and she stated they will be able to make it work. Pt still needing Ultrasound and home O2 eval but discharge order is in. Advised to plan for discharge around 6pm tonight. Also spoke with [facility] and was provided w/ fax [phone] to send AVS once ready. UPDATE 4:05PM- Direct faxed final AVS to [facility]. [facility] 09-28-2024 Note [facility] W[facility] Surgery DAILY PROGRESS NOTE Subjective Patient seen and examined at bedside. No acute events overnight. Sleeping in an out during exam- per RN didn't sleep welllast night. Denies pain to the left ulcer. Objective Vitals: Vitals: 09/28/24 0800 BP: 146/89 Pulse: 101 Resp: 21 Temp: 37 ???C (98.6 ???F) SpO2: 97% I/O last 3 completed shifts: In: 720 (5.3 mL/kg) [P.O.:720] Out: 3550 (26.4 mL/kg) [Urine:3550 (0.7 mL/kg/hr)] Weight: 134.7 kg No intake/output data recorded. Physical Exam Physical Exam Constitutional: Appearance: Normal appearance. HENT: Head: Normocephalic and atraumatic. Cardiovascular: Rate and Rhythm: Normal rate and regular rhythm. Comments: 2+ DP, PT on the left Pulmonary: Effort: Pulmonary effort is normal. No respiratory distress. Abdominal: General: There is no distension. Palpations: Abdomen is soft. Tenderness: There is no abdominal tenderness. Musculoskeletal: Left lower leg: No edema. Skin: General: Skin is warm and dry. Comments: Left foot DFU to base of great toe with healthy red viable tissue. No underlying fluctuance, bogginess, expressible purulence. No erythema, calor, induration to breanna-wound. Neurological: General: No focal deficit present. Mental Status: He is alert and oriented to person, place, and time. Mental status is at baseline. Psychiatric: Mood and Affect: Mood normal. Behavior: Behavior normal. Left great toe Labs: Results from last 7 days Lab Units 09/28/24 0358 09/27/24 0351 09/26/24 0447 09/25/24 0407 09/24/24 0355 WBC AUTO 10*3/uL 10.65* 10.21 9.63 14.37* 7.56 HEMOGLOBIN g/dL 13.7 14.0 13.6 14.1 14.1 HEMATOCRIT % 44.4 45.5 43.8 45.4 46.4 PLATELETS AUTO 10*3/uL 208 199 186 205 175 Results from last 7 days Lab Units 09/28/24 0358 09/27/24 0351 09/26/24 0447 09/25/24 0407 09/24/24 0355 SODIUM mmol/L 135* 137 139 134* 137 POTASSIUM mmol/L 4.3 4.1 3.8 4.2 4.2 CO2 mmol/L 34* 33* 36* 32* 35* BUN mg/dL 20 17 18 15 11 CREATININE mg/dL 0.92 0.89 0.91 0.91 1.02 Results from last 7 days Lab Units 09/23/24 1212 INR 1.28* Medications: acetaminophen, 1,000 mg, oral, q8h calcium, 500 mg, oral, TID with meals carvedilol, 25 mg, oral, BID with meals cholecalciferol, 2,000 Units, oral, Daily clonazePAM, 0.5 mg, oral, Nightly enoxaparin, 40 mg, subcutaneous, BID furosemide, 20 mg, oral, Daily gabapentin, 600 mg, oral, TID glycopyrrolate, 1 mg, oral, BID methocarbamol, 1,000 mg, oral, 4x daily modafinil, 200 mg, oral, BID Oxygen Therapy, , inhalation, Continuous pantoprazole, 40 mg, oral, Daily before breakfast polyethylene glycol, 17 g, oral, Daily sennosides-docusate sodium, 1 tablet, oral, BID simvastatin, 20 mg, oral, Nightly Imaging: Vasc Us Carotid Artery Duplex Bilateral Narrative: Procedure: The carotid arteries, including common carotid, internal and external carotid artery were evaluated bilaterally. This was done using real-time imaging with velocity measurement, color Doppler, and spectral analysis. The vertebral arteries were evaluated bilaterally using color ultrasound and velocity measurement. Procedure: The carotid arteries, including common carotid, internal and external carotid artery were evaluated bilaterally. This was done using real-time imaging with velocity measurement, color Doppler, and spectral analysis. The vertebral arteries were evaluated bilaterally using color ultrasound and velocity measurement. Impression: Right: Limited study due to patient excessive breathing and movement. Heterogeneous irregular plaque with no significant proximal ICA spectral Doppler or color flow disturbances: ICA 68/14 cm/sec; consistent with <50% diameter reduction. Antegrade vertebral artery flow. Left: Heterogeneous irregular plaque with no significant proximal ICA spectral Doppler or color flow disturbances: ICA 73/16 cm/sec; consistent with <50% diameter reduction. Antegrade vertebral artery flow. Right: Limited study due to patient excessive breathing and movement. Heterogeneous irregular plaque with no significant proximal ICA spectral Doppler or color flow disturbances: ICA 68/14 cm/sec; consistent with <50% diameter reduction. Antegrade vertebral artery flow. Left: Heterogeneous irregular plaque with no significant proximal ICA spectral Doppler or color flow disturbances: ICA 73/16 cm/sec; consistent with <50% diameter reduction. Antegrade vertebral artery flow. Conclusions: Limited study patienet noncooperative. Antegrade flow of bilateral vertebral arteries. <50% stenosis in right internal carotid artery. <50% stenosis in left internal carotid artery. XR chest 1 view Narrative: XR CHEST 1 VIEW CLINICAL INDICATION: Increased oxygen requirements. COMPARISON: 09/23/2024. Impression: 1. No focal airspace disease or significant pleural effusion. 2. Unchanged cardiomediastinal silho (more content not included)... [facility] 01-15-2025 Note Discharge Planning: Home with [facility] sent to [facility]. The patient would like the DME either delivered to the hospital or his home prior to discharge. [facility] 09-27-2024 Note Occupational Therapy Occupational Therapy Treatment Patient Name: Matty Garces : 1970 Today's Date: 09/27/2024 Time in:1357 Time out:1450 Total time:53 minutes,23 min OT, additional for ADULT AND PEDIATRIC NEUROLOGIST [place] provided to maximize safety as progressed functional mobility secondary to fall risk/unsteadiness etc Discharge Recommendation:inpatient rehab,patient wanting home Problem List Patient Active Problem List Diagnosis Non-ischemic cardiomyopathy (CMS/HCC) Diastolic dysfunction with chronic heart failure (CMS/HCC) Benign hypertensive cardiomyopathy with heart failure (CMS/HCC) Chronic combined systolic and diastolic congestive heart failure, NYHA class 2 (CMS/HCC) Fall at home, initial encounter Closed fracture of right fibula and tibia HTN (hypertension) PATEL (obstructive sleep apnea) Gastroesophageal reflux disease Obese 09/27/24 1449 OT Last Visit OT Received On 09/27/24 General:RN approve oob tx session,ended session with patient in bedside chair with call light, needs in reach, chair alarm on Subjective Patient states I guess we can try something Family/Caregiver Present No Precautions LE Weight Bearing Status Right;WBAT;Left;PWB Post-Surgical Precautions R closed reduction and IMN on 09/24/24 Pain Assessment Pain Assessment (Pain noted in right LE post functional mobility) Cognition Overall Cognitive Status WFL Arousal/Alertness Appropriate responses to stimuli Orientation Level Oriented X4 Following Commands Follows one step commands consistently;Follows one step commands with increased time Safety Judgment Decreased awareness of need for safety;Decreased awareness of need for assistance Awareness of Errors Decreased awareness of errors;Assistance required to identify errors made;Assistance required to correct errors made Deficits Decreased awareness of deficits Attention Span Difficulty dividing attention;Difficulty attending to directions;Attends with cues to redirect Problem Solving Assistance required to identify errors made;Assistance required to generate solutions;Assistance required to implement solutions Cognition Comments Patient pleasant and cooperative Patient did require significant cues through out session for attention to task, redirecting, and promoting increased safety awareness UE Bathing UE Bathing Level of Assistance Setup;Moderate verbal cues UE Bathing Where Assessed Edge of bed UE Bathing Comments Patient washed face and upper body, increased time as patient washed upper body multiple times, required increased reminders which parts had already been completed etc LE Bathing LE Bathing Level of Assistance Setup;Close supervision LE Bathing Where Assessed Other (Comment) LE Bathing Comments Patient washed lower back, parts of LE's, Min A for ensureing max safety as patient stood, patient complete breanna hygiene UE Dressing UE Dressing Level of Assistance Minimum assistance UE Dressing Where Assessed Edge of bed UE Dressing Comments to melecio wright Functional Standing Tolerance Functional Standing Tolerance Comments Patient tolerate short duration of standing, x2 functional tranfers, fatigue noted and some pain in right LE Static Sitting Balance Static Sitting-Balance Support Feet supported;Unilateral upper extremity supported Static Sitting-Level of Assistance Distant supervision Dynamic Sitting Balance Dynamic Sitting-Balance Support Feet supported;Unilateral upper extremity supported Dynamic Sitting Balance-Level of Assistance Close supervision Dynamic Sitting-Comments To complete bathing tasks/reaching etc Static Standing Balance Static Standing-Balance Support With device;Left upper extremity supported;Right upper extremity supported (RW) Static Standing-Level of Assistance Minimum assistance (x2 for max safety as patient demo'sincreased difficulty as fatigue and pain incresases) Static Standing-Comment/Number of Minutes (Patient demo significant difficulty maintaining heel weight bearing, provided) Dynamic Standing Balance Dynamic Standing-Balance Support With device;Left upper extremity supported;Right upper extremity supported (RW) Dynamic Standing Balance-Level of Assistance Minimum assistance (x2) Dynamic Standing-Comments x2 for max safety, patient does demonstrate some unsteadiness and difficulty maintaining weightbearing precautions Bed Mobility Bed Mobility Yes Bed Mobility 1 Bed Mobility From 1 Supine Bed Mobility Type 1 To Bed Mobility to 1 Short sit Level of Assistance 1 Close supervision;Minimal verbal cues Transfers Transfer Yes Transfer 1 Transfer From 1 Bed;Sit Transfer Type 1 To and from Transfer to 1 Stand Technique 1 Sit to stand;Stand to sit Transfer Device 1 rolling walker (bariatric RW) Transfer Level of Assistance 1 x2;Moderate verbal cues Trials/Comments 1 cues for technique, precautions etc Transfers 2 (more content not included)... [facility] 09-27-2024 Note Physical Therapy Physical Therapy Treatment Patient Name: Matty Garces : 1970 Today's Date: 09/27/2024 Time Calculation Start Time 1357 Stop Time 1450 Time Calculation (min) 53 min PT Therapeutic Procedures Time Entry Therapeutic Activity Time Entry 26 Co-tx with LATHAM to facilitate purposeful activity, 2/2 high fall risk, impaired act tolerance, & increased burden of assist transfers & functional ambulation; To maintain safety of patient & staff. Patient Active Problem List Diagnosis Non-ischemic cardiomyopathy (CMS/HCC) Diastolic dysfunction with chronic heart failure (CMS/HCC) Benign hypertensive cardiomyopathy with heart failure (CMS/HCC) Chronic combined systolic and diastolic congestive heart failure, NYHA class 2 (CMS/HCC) Fall at home, initial encounter Closed fracture of right fibula and tibia HTN (hypertension) PATEL (obstructive sleep apnea) Gastroesophageal reflux disease Obese 09/27/24 1358 PT Last Visit PT Received On 09/27/24 General Family/Caregiver Present No Subjective Now my knee hurts. (Nursing reported pt ok for therapy. Pt in bed, agreeable.) Activity Tolerance Endurance Stage II Number of Rest Breaks 2 Activity Tolerance Comments Pt performed bed mobility, unsupported sitting EOB, self care tasks, AROM, transfers, prolonged standing, and ambulation with moderate increase in fatigue. Precautions LE Weight Bearing Status Right;WBAT;Left;PWB (heel weight bearing (L)LE; offloading shoe) Medical Precautions fall risk, telemetry, bed/chair alarm Post-Surgical Precautions R closed reduction and IMN on 09/24/24; WBAT Pain Assessment Pain Assessment (Pain noted in right LE post functional mobility) Cognition Overall Cognitive Status WFL Arousal/Alertness Appropriate responses to stimuli Orientation Level Oriented X4 Following Commands Follows one step commands with increased time;Follows one step commands with repetition Safety Judgment Decreased awareness of need for safety;Decreased awareness of need for assistance Awareness of Errors Decreased awareness of errors;Assistance required to identify errors made;Assistance required to correct errors made Deficits Decreased awareness of deficits Attention Span Difficulty dividing attention;Difficulty attending to directions;Attends with cues to redirect Problem Solving Assistance required to identify errors made;Assistance required to generate solutions;Assistance required to implement solutions Cognition Comments Patient pleasant and cooperative Patient did require significant cues through out session for attention to task, redirecting, and promoting increased safety awareness General Assessment Skin Integrity ALVARO wrap to RLE, DFU to L great toe Therapeutic Exercise Therapeutic Exercise Activity 1 (B)LE AROM Static Sitting Balance Static Sitting-Balance Support Feet supported;Unilateral upper extremity supported Static Sitting-Level of Assistance Distant supervision Static Sitting-Comment/Number of Minutes SBA for safety during unsupported sitting EOB due to impulsive behavior and mild unsteadiness. (~15 minutes for self care tasks) Dynamic Sitting Balance Dynamic Sitting-Balance Support Feet supported;Unilateral upper extremity supported Dynamic Sitting Balance-Level of Assistance Close supervision Dynamic Sitting-Comments SBA for safety during scooting, positioning, and self care tasks while seated unsupported EOB due to impaired awareness and mild unsteadiness. Static Standing Balance Static Standing-Balance Support With device;Left upper extremity supported;Right upper extremity supported Static Standing-Level of Assistance Minimum assistance Static Standing-Comment/Number of Minutes CGA -> min assist to maintain balance during standing with and without UE support Dynamic Standing Balance Dynamic Standing-Balance Support With device;Left upper extremity supported;Right upper extremity supported Dynamic Standing Balance-Level of Assistance Minimum assistance Dynamic Standing-Comments min assist x2 for safety during functional mobility and self care tasks with RW for support due to unsteadiness and difficulty maintaining weight bearing precautions Ambulation Ambulation Yes Ambulation 1 Comments/Distance (ft) 1 Pt ambulated ~14' with RW for support, min assist x 2 to ensure balance, safety, and line management. Max cues for technique with fair carry over. Unsteadiness throughout, difficulty maintaining weight bearing restrictions despite cues. Slow pace, increased pain (R)LE. Unable to safely increase distance. Stairs Stairs No Bed Mobility Bed Mobility Yes Bed Mobility 1 Bed Mobility Comments 1 Supine to sit to (R) performed with min assist and cues. Transfers Transfer Yes Transfer 1 Trials/Comments 1 Sit to stand from elevated EOB performed x 2 with min assist x 1 and CGA x 1 for lift, balance, (more content not included)... [facility] 09-27-2024 Note Attestation signed by Fahad Rizzo MD at 09/28/2024 7:41 AM Patient seen and examined with trauma team [facility] Trauma Surgery Progress Note Subjective Patient was seen resting in bed this morning. He states his right knee is still significantly painful. Discussion was had about sending patient to facility for physical rehabilitation but patient is adamant that he wants to go home. He denies chest pain, SOB, nausea, vomiting, changes in bowel habits. Objective Vitals: BP: (138-158)/(76-99) 140/97 (09/27 799) Systolic BP Percentile: -- Diastolic BP Percentile: -- Temp: [36.5 ???C (97.7 ???F)-36.8 ???C (98.3 ???F)] 36.5 ???C (97.7 ???F) (09/27 799) Temp Source: Oral (09/27 799) Heart Rate: [81-96] 89 (09/27 819) Resp: [17-26] 21 (09/26 2045) SpO2: [89 %-100 %] 100 % (09/27 819) Height: -- Weight: [136 kg (299 lb 2.6 oz)] 136 kg (299 lb 2.6 oz) (09/27 338) Kennedy Coma Scale Score: 15 Intake/Output Summary (Last 24 hours) at 09/27/2024 1112 Last data filed at 09/27/2024 0500 Gross per 24 hour Intake 240 ml Output 1600 ml Net -1360 ml Physical Exam Constitutional: Appearance: He is not ill-appearing. HENT: Right Ear: External ear normal. Left Ear: External ear normal. Nose: Nose normal. Mouth/Throat: Mouth: Mucous membranes are moist. Pharynx: Oropharynx is clear. Eyes: Extraocular Movements: Extraocular movements intact. Conjunctiva/sclera: Conjunctivae normal. Cardiovascular: Rate and Rhythm: Normal rate and regular rhythm. Pulses: Normal pulses. Heart sounds: Normal heart sounds. Pulmonary: Effort: Pulmonary effort is normal. No respiratory distress. Breath sounds: Normal breath sounds. Abdominal: General: Bowel sounds are normal. There is no distension. Palpations: Abdomen is soft. There is no mass. Tenderness: There is no abdominal tenderness. Musculoskeletal: General: Signs of injury present. Normal range of motion. Cervical back: Normal range of motion and neck supple. Comments: RLE bandage in place. Neurovascularly intact distal to injury Neurological: General: No focal deficit present. Mental Status: He is alert and oriented to person, place, and time. Labs: Recent Results (from the past 12 hour(s)) Basic metabolic panel Collection Time: 09/27/24 3:51 AM Result Value Ref Range Sodium 137 136 - 145 mmol/L Potassium 4.1 3.5 - 5.1 mmol/L Chloride 99 98 - 107 mmol/L CO2 33 (H) 21 - 31 mmol/L BUN 17 7 - 25 mg/dL Creatinine 0.89 0.70 - 1.30 mg/dL Glucose 95 70 - 100 mg/dL Calcium 9.3 8.6 - 10.3 mg/dL Anion Gap 9 7 - 20 mmol/L eGFR 101.8 >60.0 mL/min/1.73m*2 BUN/Creatinine Ratio 19.1 CBC Collection Time: 09/27/24 3:51 AM Result Value Ref Range Auto WBC 10.21 4.00 - 10.60 10*3/uL RBC 5.29 4.20 - 5.70 10*6/uL Hemoglobin 14.0 13.0 - 17.0 g/dL Hematocrit 45.5 39.0 - 55.0 % MCV 86.0 82.0 - 98.0 fL MCH 26.5 (L) 27.0 - 33.0 pg MCHC 30.8 (L) 32.0 - 35.0 g/dL RDW 15.4 (H) 11.5 - 15.0 % Platelets 199 150 - 400 10*3/uL Magnesium Collection Time: 09/27/24 3:51 AM Result Value Ref Range Magnesium 1.9 1.9 - 2.7 mg/dL Phosphorus Collection Time: 09/27/24 3:51 AM Result Value Ref Range Phosphorus 4.4 2.5 - 5.0 mg/dL Venous blood gas with ionized calcium Collection Time: 09/27/24 9:06 AM Result Value Ref Range pH, Diaz 7.45 (H) 7.31 - 7.41 pCO2, Diaz 50 40 - 50 mmHg pO2, Diaz 53 (H) 35 - 45 mmHg HCO3, Venous 34.8 mmol/L Calcium, Ion 1.27 1.15 - 1.33 mmol/L O2 Sat, Diaz 87.1 (H) 65.0 - 75.0 % Base Excess, Diza 9.2 mmol/L Radiologic studies: No X-ray results found for the past [address] results found for the past 24 hours No MRI results found for the past 24 hours EKG: Encounter Date: 09/23/24 ECG 12 lead Result Value Ventricular Rate 82 Atrial Rate 82 AL Interval 164 QRS DURATION 92 QT Interval 386 QTC CALCULATION(BAZETT) 450 P Cavalier 61 R-Cavalier 18 T Wave Cavalier 69 Impression Normal sinus rhythm Normal ECG When compared with ECG of 23-SEP-2024 14:15, No significant change was found Confirmed by Fabian RAM, JESSICA Carr ([id number]) on 09/24/2024 10:24:43 PM Assessment The patient is a 53 y.o. year old male who presented as a trauma following Fall and sustained the following injuries. Catalogue of Injuries Fall, Syncope Comminuted right tib/fib fracture Incidental findings Enlarged right hilar node Enlarged prostate Medical issues CHF HTN Hypomagnesemia Obstructive sleep apnea Morbid obesity Plan Neuro: -Neuro checks q4hrs -Pain control multimodal with acetaminophen, gabapentin, robaxin, PRN roxicodone, and dilaudid PRN breakthrough. CV: Syncopal workup -Telemetry monitoring -Echo, carotids ordered for syncopal workup. Both negative for acute findings. Respiratory: (more content not included)... [facility] 09-26-2024 Note Per patients romain aaron was to start with [facility] on the day of admit. Referral made as requested. SW following. [facility] 09-26-2024 Note [facility]ascular and Wound Surgery DAILY PROGRESS NOTE Subjective Patient seen and examined at bedside. No acute events overnight. Vital signs stable. Denies pain to the left ulcer. Patient states he follows regularly with tyre finisher and examiner at OSH and plans to follow-up with them at discharge. Denies fever, chills, chest pain, shortness of breath, abdominal pain Objective Vitals: Vitals: 09/26/24 1515 BP: (!) 146/99 Pulse: 96 Resp: 26 Temp: 36.8 ???C (98.2 ???F) SpO2: 98% I/O last 3 completed shifts: In: 880 (6.4 mL/kg) [P.O.:780; IV Piggyback:100] Out: 1525 (11.1 mL/kg) [Urine:1525 (0.3 mL/kg/hr)] Weight: 137.7 kg No intake/output data recorded. Physical Exam Physical Exam Constitutional: Appearance: Normal appearance. HENT: Head: Normocephalic and atraumatic. Cardiovascular: Rate and Rhythm: Normal rate and regular rhythm. Pulmonary: Effort: Pulmonary effort is normal. No respiratory distress. Abdominal: General: There is no distension. Palpations: Abdomen is soft. Tenderness: There is no abdominal tenderness. Musculoskeletal: Left lower leg: No edema. Skin: General: Skin is warm and dry. Comments: Left foot DFU to base of great toe with muscle exposure. No underlying fluctuance, bogginess, expressible purulence. No erythema, calor, induration to breanna-wound. Neurological: General: No focal deficit present. Mental Status: He is alert and oriented to person, place, and time. Mental status is at baseline. Psychiatric: Mood and Affect: Mood normal. Behavior: Behavior normal. Labs: Results from last 7 days Lab Units 09/26/2444609/25/2440609/24/2435409/23/24 1212 WBC AUTO 10*3/uL 9.63 14.37* 7.56 10.56 HEMOGLOBIN g/dL 13.6 14.1 14.1 14.5 HEMATOCRIT % 43.8 45.4 46.4 47.8 PLATELETS AUTO 10*3/uL 186 205 175 188 Results from last 7 days Lab Units 09/26/2444609/25/247 09/24/24 0355 09/23/24 1403 SODIUM mmol/L 139 134* 137 135* POTASSIUM mmol/L 3.8 4.2 4.2 4.3 CO2 mmol/L 36* 32* 35* 27 BUN mg/dL 18 15 11 8 CREATININE mg/dL 0.91 0.91 1.02 0.96 Results from last 7 days Lab Units 09/23/24 1212 INR 1.28* Medications: acetaminophen, 1,000 mg, oral, q8h calcium, 500 mg, oral, TID with meals carvedilol, 25 mg, oral, BID with meals cholecalciferol, 2,000 Units, oral, Daily clonazePAM, 0.5 mg, oral, Nightly enoxaparin, 40 mg, subcutaneous, BID furosemide, 20 mg, oral, Daily gabapentin, 600 mg, oral, TID glycopyrrolate, 1 mg, oral, BID methocarbamol, 1,000 mg, oral, 4x daily modafinil, 200 mg, oral, BID Oxygen Therapy, , inhalation, Continuous pantoprazole, 40 mg, oral, Daily before breakfast polyethylene glycol, 17 g, oral, Daily potassium chloride CR, 10 mEq, oral, BID Salter Nasal Cannula - Oxygen Therapy, , inhalation, Continuous sennosides-docusate sodium, 1 tablet, oral, BID simvastatin, 20 mg, oral, Nightly Imaging: Vasc Us Carotid Artery Duplex Bilateral Narrative: Procedure: The carotid arteries, including common carotid, internal and external carotid artery were evaluated bilaterally. This was done using real-time imaging with velocity measurement, color Doppler, and spectral analysis. The vertebral arteries were evaluated bilaterally using color ultrasound and velocity measurement. Procedure: The carotid arteries, including common carotid, internal and external carotid artery were evaluated bilaterally. This was done using real-time imaging with velocity measurement, color Doppler, and spectral analysis. The vertebral arteries were evaluated bilaterally using color ultrasound and velocity measurement. Impression: Right: Limited study due to patient excessive breathing and movement. Heterogeneous irregular plaque with no significant proximal ICA spectral Doppler or color flow disturbances: ICA 68/14 cm/sec; consistent with <50% diameter reduction. Antegrade vertebral artery flow. Left: Heterogeneous irregular plaque with no significant proximal ICA spectral Doppler or color flow disturbances: ICA 73/16 cm/sec; consistent with <50% diameter reduction. Antegrade vertebral artery flow. Right: Limited study due to patient excessive breathing and movement. Heterogeneous irregular plaque with no significant proximal ICA spectral Doppler or color flow disturbances: ICA 68/14 cm/sec; consistent with <50% diameter reduction. Antegrade vertebral artery flow. Left: Heterogeneous irregular plaque with no significant proximal ICA spectral Doppler or color flow disturbances: ICA 73/16 cm/sec; consistent with <50% diameter reduction. Antegrade vertebral artery flow. Conclusions: Limited study patienet noncooperative. Antegrade flow of bilateral vertebral arteries. <50% stenosis in right internal carotid artery. <50% stenosis in left internal carotid artery. XR chest 1 view Narrative: XR CHEST 1 VIEW CLINICAL INDICATION: Increased oxygen requirements. COMPARISON: (more content not included)... [facility] 09-26-2024 Note Occupational Therapy Occupational Therapy Treatment Note Patient Name: Matty Garces Patient Date of : 1970 Today's Date: 09/26/24 Time in: 1058 Time Out: 1220 Total Time: 82 Past Medical History and Past Surgical History Patient Active Problem List Diagnosis Non-ischemic cardiomyopathy (CMS/HCC) Diastolic dysfunction with chronic heart failure (CMS/HCC) Benign hypertensive cardiomyopathy with heart failure (CMS/HCC) Chronic combined systolic and diastolic congestive heart failure, NYHA class 2 (CMS/HCC) Fall at home, initial encounter Closed fracture of right fibula and tibia HTN (hypertension) PATEL (obstructive sleep apnea) Gastroesophageal reflux disease Obese Past Medical History: Diagnosis Date Hypertension Past Surgical History: Procedure Laterality Date ABDOMINAL SURGERY OT Received On 09/26/2024 Subjective Im not going to go to a facility. I need to be home to take care of my ! Objective 1 Pt was up in chair at EOS with alarm on with [place] HARP's elevated Objective 2 Mar[employer] And Granite Polisher discussed importance of discharging to facility for continued therapy prior to going home however, pt declines. Pt transfers are currently unsafe with senior copywriter questioning ability to maintain WB status. OT Discharge Recommendation Inpatient Rehab/PM&R However, pt declines need for placement. OT Equipment Recommendations Tub Transfer Bench, Raised toilet seat General Pain 0 Pain Location Pain Comments Precautions: chair alarm, Fall risk, IV, oxygen, telemetry UE WB status bilateral, WBAT LE WB status left, Heel WB only Cognition Orientation Oriented x4 Attention Span impaired Needed cues to redirect and stay on task Memory intact Sequencing intact Problem Solving impaired Pt lacks insight to deficits Other Pt is impulsive during standing/transfer activities. Marble And Granite Polisher questions pts safety while at home. General Assessment Vision wears reading glasses Hearing Intact Communication Intact Skin: Eczema Edema: Mild in R forefoot Balance: Sitting Static Balance: Balance support RUE support, LUE support, Unilateral UE Support, No UE Support, Feet Supported Level of Assist: Supervision/set -up Comments: While sitting EOB Sitting Dynamic Balance: Balance support RUE support, LUE support, Unilateral UE Support, No UE Support, Feet Supported Level of Assist: Supervision/set -up Comments: Standing Static Balance: Balance support R UE support, L UE support, Unilateral UE support, Rolling Walker Level of Assist: CGA Comments: With cues for wt bearing status Standing Dynamic Balance: Balance support R UE support, L UE support, Unilateral UE support, Rolling Walker Level of Assist: CGA Comments: With cues for wt bearing Activities of Daily Living Grooming: Level of Assistance: Supervision/set -up Where Assessed: Sitting EOB, no assistive device Comments: UB dressing: Level of Assistance: Minimal assist Where Assessed: From chair, No equipment used Comments: Assist required due to lines UB bathing: Level of Assistance: Supervision/set -up Where Assessed: Sitting EOB, None Comments: LB Bathing Level of Assistance: CGA Where Assessed: Standing, Rolling Walker Comments: Pt stood with use of walker and hands on for safety to complete breanna hygiene. Cues required for heel wt bearing only through L LE Bed Mobility: HOB flat, use of rails. Pt practiced bed mobility (as he will be sleeping in his bed at home) Pt required increase time and multiple practices but was able to sit EOB. Rolling Left: SBA/Supervision Comments: Supine to Sit: SBA/Supervision Comments: Transfers: Sit to Stand: Minimal Assist , Rolling Walker Comments: Stand to Sit: SBA/Supervision, None Comments: To chair: Minimal Assist , Rolling Walker Comments: Pt required cues for technique and WB status Assessment: OT Assessment OT Impairments: Decreased ADL status, Decreased safe judgment during ADL, Decreased endurance, Decreased functional mobility, Decreased IADLs OT Assessment/ANNA Summary: Pt would benefit from continued therapy to increase balance, safety and endurance during functional mobility and independence with ADL's however, pt declines need for placement. Prognosis: Fair Evaluation/Treatment Tolerance: Patient tolerated treatment well Medical Staff Made Aware: Yes Strengths: Housing layout, Living arrangement secure, Support and attitude of living partners, Support of extended family/friends, Ability to acquire knowledge, Capable of completing ADLs semi/independent Barriers to Discharge: Capable of completing ADLs semi/independent (decreased IADL's) OT Education/Comments: Transfer techniques, DME for home, need for placement to facility, weight bear status/precautions. Plan: Plan Level of assist: 1 assist Treatment Interventions: ADL retraining, Functional transfer training, Endurance training, Patient/f (more content not included)... [facility] 09-26-2024 Note Orthopaedic Surgery Orthopaedic Surgery Progress Note Date: 09/26/2024 SUBJECTIVE: Pain is well improved. Patient was able to sleep through the night. He reports increased pain, however, his pain medication have been decreased due to respiratory depression. No acute events overnight. Denies numbness/tingling, fevers/chills, SOB. OBJECTIVE BP 151/81 Pulse 87 Temp 36.6 ???C (97.9 ???F) Resp 18 Ht 1.88 m (6' 2 ) Wt (!) 138 kg (303 lb 9.2 oz) SpO2 96% BMI 38.98 kg/m??? General: No acute distress, alert and cooperative with exam MSK: RLE - Alvaro bandage in place, no bleeding of strikethrough - Compartments of the right leg compressible, No pain with passive extension of the great toe - SILT in superficial peroneal, deep peroneal, sural, saph nerve dist - Motor function intact in tibial, deep peroneal, superficial peroneal dist - Brisk capillary refill Labs Lab Results Component Value Date WBC 9.63 09/26/2024 HGB 13.6 09/26/2024 HCT 43.8 09/26/2024 MCV 84.7 09/26/2024 PLT 186 09/26/2024 Lab Results Component Value Date GLU 124 (H) 01/31/2019 CALCIUM 9.4 09/26/2024 NA 139 09/26/2024 K 3.8 09/26/2024 CO2 36 (H) 09/26/2024 CL 99 09/26/2024 BUN 18 09/26/2024 CREATININE 0.91 09/26/2024 Imaging: XR TIBIA FIBULA 2 VIEWS RIGHT 09/24/2024 1:01 PM CLINICAL INDICATIONS: ORIF COMPARISON: Preoperative films FINDINGS: Intramedullary wendy in place. Multiple fracture planes of the tibia and fibula. Overall alignment is significantly improved compared to preoperative exam. IMPRESSION: Stable alignment following ORIF ASSESSMENT: Matty Garces is a 53 y.o. male POD 2 s/p R closed reduction and IMN PLAN PLAN: Compartments continue to be compressible. Continue to ice and elevate right lower extremity Weightbearing Status: WBAT right lower extremity DVT prophylaxis: Continue per primary team. Will need 4 weeks of DVT ppx from day of surgery, Ortho prefers Lovenox however primary team may substitute for alternative as indicated Antibiotics: Completed perioperative ancef Aggressive Ice and Elevation of RLE with 3 pillows and Ice bags Dressings will be first changed by orthopedic surgery team. Please reinforce as necessary PT OT postoperatively Pain control per primary. recommend multimodal Follow up: Patient will need to follow-up with Sandrine Hahn MD 10-14 days from day of surgery upon discharge. Please call orthopedic surgery with any questions or concerns. Can be reached at the orthopedic pager: [phone] Luis Felipe Rivas MD 09/26/24 7:24 AM Ortho Pager: [phone] [facility] 09-26-2024 Note [facility] Trauma Surgery Progress Note Subjective Subjective: Patient seen on 5AB this morning resting in bed. No acute events overnight. We had an at length discussion about his respiratory status, sleep apnea, and pain control. Unfortunately, his oxygen saturations decrease with pain medications. Discussed using CPAP while resting, but patient remains resistant to CPAP. Discussed syncopal workup, which is negative for acute findings. Discussed discharge planning, with PT/OT recommending IPR, while patient adamantly refusing discharge to any facility. Objective Objective Vitals: BP: (121-151)/(76-96) 151/81 (09/26 399) Systolic BP Percentile: -- Diastolic BP Percentile: -- Temp: [36.4 ???C (97.6 ???F)-36.6 ???C (97.9 ???F)] 36.6 ???C (97.9 ???F) (09/25 2014) Temp Source: Oral (09/25 1599) Heart Rate: [61-95] 87 (09/26 399) Resp: [13-25] 18 (09/26 399) SpO2: [86 %-98 %] 96 % (09/26 399) Height: -- Weight: [138 kg (303 lb 9.2 oz)] 138 kg (303 lb 9.2 oz) (09/263) Kennedy Coma Scale Score: 15 Intake/Output Summary (Last 24 hours) at 09/26/2024 0616 Last data filed at 09/26/2024 0500 Gross per 24 hour Intake 780 ml Output 1525 ml Net -745 ml Physical Exam Constitutional: General: He is not in acute distress. Appearance: He is obese. HENT: Head: Normocephalic and atraumatic. Right Ear: External ear normal. Left Ear: External ear normal. Nose: Nose normal. Mouth/Throat: Mouth: Mucous membranes are moist. Pharynx: Oropharynx is clear. Eyes: Extraocular Movements: Extraocular movements intact. Pupils: Pupils are equal, round, and reactive to light. Cardiovascular: Rate and Rhythm: Normal rate and regular rhythm. Pulses: Normal pulses. Heart sounds: Normal heart sounds. Pulmonary: Effort: Pulmonary effort is normal. Breath sounds: Normal breath sounds. Comments: 6LNC Abdominal: General: Bowel sounds are normal. There is no distension. Palpations: Abdomen is soft. Tenderness: There is no abdominal tenderness. Musculoskeletal: General: Signs of injury (RLE Alvaro wrapped from Thigh to toe. CDI.) present. Normal range of motion. Cervical back: Normal range of motion and neck supple. Skin: General: Skin is warm and dry. Capillary Refill: Capillary refill takes less than 2 seconds. Neurological: General: No focal deficit present. Mental Status: He is alert and oriented to person, place, and time. Mental status is at baseline. Psychiatric: Mood and Affect: Mood normal. Behavior: Behavior normal. Thought Content: Thought content normal. Judgment: Judgment normal. Labs: Recent Results (from the past 12 hour(s)) Basic metabolic panel Collection Time: 09/26/24 4:47 AM Result Value Ref Range Sodium 139 136 - 145 mmol/L Potassium 3.8 3.5 - 5.1 mmol/L Chloride 99 98 - 107 mmol/L CO2 36 (H) 21 - 31 mmol/L BUN 18 7 - 25 mg/dL Creatinine 0.91 0.70 - 1.30 mg/dL Glucose 85 70 - 100 mg/dL Calcium 9.4 8.6 - 10.3 mg/dL Anion Gap 8 7 - 20 mmol/L eGFR 100.2 >60.0 mL/min/1.73m*2 BUN/Creatinine Ratio 19.8 CBC Collection Time: 09/26/24 4:47 AM Result Value Ref Range Auto WBC 9.63 4.00 - 10.60 10*3/uL RBC 5.17 4.20 - 5.70 10*6/uL Hemoglobin 13.6 13.0 - 17.0 g/dL Hematocrit 43.8 39.0 - 55.0 % MCV 84.7 82.0 - 98.0 fL MCH 26.3 (L) 27.0 - 33.0 pg MCHC 31.1 (L) 32.0 - 35.0 g/dL RDW 15.4 (H) 11.5 - 15.0 % Platelets 186 150 - 400 10*3/uL Magnesium Collection Time: 09/26/24 4:47 AM Result Value Ref Range Magnesium 1.9 1.9 - 2.7 mg/dL Phosphorus Collection Time: 09/26/24 4:47 AM Result Value Ref Range Phosphorus 2.6 2.5 - 5.0 mg/dL Radiologic studies: XR chest 1 view Result Date: 09/25/2024 1. No focal airspace disease or significant pleural effusion. 2. Unchanged cardiomediastinal silhouette. Electronically signed: Edmund Valenzuela MD. No CT results found for the past 24 hours No MRI results found for the past 24 hours EKG: Encounter Date: 09/23/24 ECG 12 lead Result Value Ventricular Rate 82 Atrial Rate 82 AL Interval 164 QRS DURATION 92 QT Interval 386 QTC CALCULATION(BAZETT) 450 P Cavalier 61 R-Cavalier 18 T Wave Cavalier 69 Impression Normal sinus rhythm Normal ECG When compared with ECG of 23-SEP-2024 14:15, No significant change was found Confirmed by Fabian RAM, JESSICA Carr ([id number]) on 09/24/2024 10:24:43 PM Assessment The patient is a 53 y.o. year old male who presented as a trauma following Fall and sustained the following injuries. Catalogue of Injuries Fall Comminuted right tib/fib fracture Incidental findings Enlarged right hilar node Enlarged prostate Medical issues CHF HTN Hypomagnesemia Obstructive sleep apnea Morbid obesity Plan Neuro: -Neuro checks q4hrs -Pain control multimodal with acetaminophen, gabapentin, robaxin, PRN roxicodone, and dilaudid PRN breakthrough. Increasing robaxin dose today. CV: Syncopal workup -Telemetry monitori (more content not included)... [facility] 09-25-2024 Note Pt was seen early th is morning about wearing BiPap for possible sleep apnea due to periods of apnea and decreased oxygen saturation overnight. Pt refused BiPap, stating he has tried it before and it gives him migraines. Pt was agreeable to wearing a salter at night to help with oxygenation. 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 Referral Reason Follow up;Information Patient Information Primary Caregiver Spouse Activities of Daily Living Assistive Device Walker;Wheelchair Behavior Oriented Communication Talks;Understands speaking Discharge Planning Living Arrangements Spouse/significant other Support Systems Spouse/significant other Type of Residence Private residence;[facility] (await name of agency from ) Post Acute Services In home services (agreeable to [facility]) Type of Home Care Services (Current) Skilled Home Servicies;Home OT;Home PT ([facility] was just going to start services before admit) Patient's goal for discharge home with [facility] Does the patient need discharge transport arranged? No () Screened by [facility]. Pt declines SNF placement and is agreeable to take pt home with [facility]. Await name of [facility] agency that was approved to start services. Pt will likely need RT for home O2. Will follow up with pt's for [facility] agency. thinks [facility] agency is [facility] or [facility]. SW will follow with referrals. [facility] 09-25-2024 Note 09/25/24 1332 Admission Assessment Questions Verify insurance with patient Yes Do you understand medical disease or what brought you into the hospital? Yes Who is your current PCP? Venus Jaeger MD Can I schedule a follow up appointment for you at the time of discharge? No Do you understand why you are taking your current medications? Yes Are you taking your medications as prescribed? Yes Did patient provide teach back? No Pharmacy Bedside Delivery Status Interested Does the patient have a immigration case manager assigned to them through their insurance? No Living Arrangement (Current/Prior to Hospitalization) Private residence;Home self care Does the patient have history of HHC or SNF? Yes (pt could not remember the [facility] agency name, neither could ) Assistive Device Walker;Wheelchair (using MIL's DME, needs own DME, scripts requested) Patient's goal for discharge Home w/HHC Was patient reminded that goal for discharge is 11am? No Does the patient have transportation at discharge? Yes Type of Residence Private residence;Home care staff Is PT/OT appropriate? Yes Is PT/OT ordered? Yes Is SW consult appropriate? Yes Is SW consult ordered? Yes Do you understand the benefits of MyChart? Yes Were you able to send link and activate MyChart? No Assessment completed with , patient deferred to . [facility] 09-25-2024 Note The findings from is face to face encounter indicate the reason this patient requires a bedside commode. Patient is physically incapable of using regular toilet facilities. Patient is confined to 1 level of the home with no toilet on that level Marilou Tomlin [facility] Department of Surgery - Trauma [phone] [facility] 09-25-2024 Note The findings from is face to face encounter indicate the reason this patient requires a Bariatric Wheelchair. Patient has a mobility limitation that significantly impairs his/her ability to participate in one or more mobility-related activities of daily living such as toileting, feeding, dressing, grooming, and bathing in the home. The mobility limitation cannot be sufficiently resolved by the use of an appropriately fitted cane or walker Use of a manual wheelchair will significantly improve the patient's ability to participate in MRADLs and the patient will use it on a regular basis in the home. Patient has sufficient upper extremity function and other physical and mental capabilities needed to safely self-propel the manual wheelchair that is provided in the home during a typical day The patient has expressed a willingness to use the manual wheelchair that is provided in the home Marilou Tomlin [facility] Department of Surgery - Trauma [phone] [facility] 09-25-2024 Note The findings from is face to face encounter indicate the reason this patient requires a bariatric rolling walker. Due to Right tibia/fibula fracture, I have ordered a walker. The patient???s medical condition limits his/her mobility and impairs his/her ability to participate in MRADLS. The patient???s mobility limitation cannot be sufficiently resoled by the use of a cane and can be with the use of a walker. The patient can safely use the walker. It will significantly improve the patient???s ability to participate in MRADLS and he/she will use it on a regular basis. It is apparent the patient would benefit from obtaining a walker and the benefits and need have been discussed with the patient Mariloukathie Tomlin [facility] Department of Surgery - Trauma [phone] [facility] 09-25-2024 Note Physical Therapy Physical Therapy Evaluation Patient Name: Matty Garces : 1970 Today's Date: 09/25/2024 Time Calculation Start Time 0937 Stop Time 1016 Time Calculation (min) 39 min PT Evaluation Time Entry PT Evaluation (Moderate) Time Entry 29 PT Therapeutic Procedures Time Entry Therapeutic Activity Time Entry 10 PT Discharge Recommendations: Inpatient rehab facility placement (Pt requesting home discharge and will need equipment listed below for safe mobility as well as home health PT/OT.) Equipment Recommended: manual wheelchair, rolling walker, bedside commode (bariatric rolling walker, bariatric wheelchair with elevated leg rests, bedside commode) Pt is a 53 year old male admitted 09/23/24 as a transfer from [facility] complaining of R tibial shaft transverse fx and R fibula transverse fx s/p fall in shower. Pt underwent R closed reduction and IMN on 09/24/24. Pt additionally with baseline DFU to L great toe. General Family/Caregiver Present: No Subjective: If I stand on this leg, it's going to snap again. RN and pt agreeable to PT eval this date. Co-eval with OT. Pt supine in bed upon arrival and left up in chair with chair alarm on and call light in reach, RN aware. Pt pleasant and cooperative. PT Diagnosis: decreased functional mobility Patient Active Problem List Diagnosis Non-ischemic cardiomyopathy (CMS/HCC) Diastolic dysfunction with chronic heart failure (CMS/HCC) Benign hypertensive cardiomyopathy with heart failure (CMS/HCC) Chronic combined systolic and diastolic congestive heart failure, NYHA class 2 (CMS/HCC) Fall at home, initial encounter Closed fracture of right fibula and tibia HTN (hypertension) PATEL (obstructive sleep apnea) Gastroesophageal reflux disease Obese Past Medical History: Diagnosis Date Hypertension Past Surgical History: Procedure Laterality Date ABDOMINAL SURGERY Precautions Precautions LE Weight Bearing Status: Right, WBAT, Left, PWB (heel WB only on LLE) Medical Precautions: fall risk, IV, telemetry, bed alarm, chair alarm, oxygen (8L salter) Post-Surgical Precautions: s/p closed reduction and IMN to R tibia on 09/24/24 Pain Pain Assessment Pain Assessment: 0-10 Pain Score: 7 Pain Type: Acute pain, Surgical pain Pain Location: Leg Pain Orientation: Right Cognition Cognition Overall Cognitive Status: Within Functional Limits Arousal/Alertness: Appropriate responses to stimuli Orientation Level: Oriented X4 Following Commands: Follows one step commands without difficulty Safety Judgment: Decreased awareness of need for assistance, Decreased awareness of need for safety Awareness of Errors: Assistance required to identify errors made Deficits: Fully aware of deficits Attention Span: Attends with cues to redirect Memory: Appears intact Problem Solving: Assistance required to identify errors made Communication: Intact Cognition Comments: cues for safety awareness and proper positioning with fair/good return demo General Assessment General Assessment Hearing: mild ALTURAS Skin Integrity: alvaro wrap to RLE, wound to base of L great toe Edema: RLE, B great toes Hand Dominance: Right Home Living Home Living Type of Home: House Lives With: Spouse () Home Adaptive Equipment: None (pt's wheelchair is currently broken) Home Layout: Two level, Full bath main level, Able to live on main level with bedroom/bathroom, Stairs to alternate level with rails (bedroom is upstairs, pt reports he is able to sleep on the main level if needed) Alternate Level Stairs-Number of Steps: f/f (bedroom) Home Access: Ramped entrance Bathroom Shower/Tub: Tub/shower unit Bathroom Toilet: Standard Bathroom Equipment: Grab bars in shower, Hand-held shower Bathroom Accessibility: wheelchair fits in bathroom Prior Level of Function Prior Function Level of [place]: Independent with ADLs and functional transfers, Independent with homemaking with ambulation Prior Functional Mobility: Independent without device Receives Help From: (pt reports is unable to care for him and he typically cares for her, son able to assist PRN) ADL Assistance: Independent Homemaking Assistance: Independent Prior Function Comments: Pt recently fractured LLE in March 2024 and used a wheelchair to mobilize. Most recently not using DME for mobility. Vision Basic Assessment Vision - Basic Assessment Current Vision: Wears glasses only for reading Activity Tolerance Activity Tolerance Ambulation comments: Pt takes a few steps from EOB to chair with SBA. Endurance: Stage II Stage II (METs 1.4-2.0) - Sittin-20 mins Number of Rest Breaks: 2 Activity Tolerance Comments: Pt with mild SOB noted and demos increased fatigue with minimal activity. SPO2 at 96% on 8L salter. General Assessments Proprioception Proprioception: No apparent deficits Perception Inattention/Neglect: A (more content not included)... [facility] 09-25-2024 Note Attestation signed by Gabriel Seay MD at 09/25/2024 12:44 PM I saw and evaluated the patient personally participating in the rodriges portions of the service. I reviewed the resident???s note. I agree with the resident???s findings and plan. Please note there may be additional comments below and/or corrections to the resident note. Patient has an appropriate level of functional goals to qualify for an IPR stay. I feel he would tolerate an aggressive rehab program and has medical complexity including LLE wounds. Patient at this time would like to pursue outpatient therapy. Of note, he requested a RX for replacement manual W/C. Since his current chair is over 5 years old he likely qualifies for replacement. - Gabriel Seay MD Physical Medicine and Rehabilitation Consult Note Patient Identification Matty Garces is a 53 y.o. male. : 1970 Admit Date: 09/23/2024 Attending Provider: Lico Hernandez MD Primary Care Physician: Venus Jaeger MD Admitting Diagnosis: Fall, initial encounter [W19.XXXA] Closed fracture of right tibia and fibula, initial encounter [S82.201A, S82.401A] Fall at home, initial encounter [W19.XXXA, Y92.009] Assessment/Plan Patient has deficits in activities of daily living, gait, mobility and strength secondary to the following diagnoses. Principal Problem: Fall at home, initial encounter Active Problems: Closed fracture of right fibula and tibia Patient's medical chart and hospital course thus far have been reviewed, and the following conditions would directly affect the rehabilitation plan and would therefore need to monitored during the rehab process should the patient meet criteria for admission to IPR: Assessment: Russell fracture of the right tibial shaft and fibula s/p closed reduction and IMN-4 weeks of DVT continued from 09/23, preferentially Lovenox, maintain weightbearing as tolerated Syncopal events- patient describes as micro-seizures, has completed extensive workup outpatient Chronic wounds to the left lower extremity-currently on therapy with Vashe soak for 5 minutes, collagen, ABD, Kerlix CHF, hypertension, hypomagnesemia-noted Plan of Care: Patient with diagnosis of Russell fracture of the right tibial shaft and fibula s/p closed reduction and IMN with medical complexity including chronic wound to left lower extremity, CHF, hypertension, hypomagnesemia. After discussion, patient is only interested in discharging home. He has a handicap accessible in-law suite with wheelchair accessible kitchen, bathroom, and bedroom, he also has a wheelchair ramp to enter the home. He notes he fractured his LLE in March 2024 and did fine at home. However, if he should change his mind he would be a good candidate for IPR. Patient has not yet received physical therapy. When therapy documentation shows patient can tolerate out of bed therapy, based on our evaluation, it is likely he would be able to tolerate 3 hours of multi-disciplinary therapy per day. Goals would be mod I for ADLs, bed mobility, transfers and ambulation. Estimated length of stay 1-2 weeks NOTE: Patients being followed by the PM and R service may not be seen every day if the plan has not changed; however, we continue to follow all active consults through daily chart review, and will continue to communicate our current plan either through a formal progress note, or through use of the sticky note communication system. If there is any uncertainty about our current plan, please feel free to contact our service. Subjective Reason for Consultation: Possible inpatient rehabilitation admission Chief Complaint: Left lower extremity pain History of present illness: Patient is a 53-year-old male with past medical history of diabetes, hypertension, heart failure and cellulitis to the left lower extremity who was admitted 09/23 for a traverse fracture of the right tibial shaft and fibula. On 09/24 patient underwent right closed reduction and intramedullary nailing without complications and remains weightbearing as tolerated to left lower extremity. Patient experiences micro-seizures of unknown origin and has had extensive outpatient workup. He believes he had one of these events in the shower, leading to his fall. Recent Physical and Occupational Therapy Assessments: None Previous Level of Function: Independent ADLs and homemaking Home Set-up and Support System: Has a handicap accessible in-law suite with wheelchair accessible kitchen, bathroom, and bedroom, he also has a wheelchair ramp to enter the home. Current Facility-Administered Medications: acetaminophen (Tylenol) tablet 1,000 mg, 1,000 mg, oral, q8h, ROMAIN Acevedo, 1,000 mg at 09/25/24 0647 calcium tablet 500 mg, 500 mg, oral, TID wit (more content not included)... [facility] 09-25-2024 Note Occupational Therapy Occupational Therapy Evaluation Patient Name: Matty Garces : 1970 Today's Date: 09/25/2024 Start Time 0938 Stop Time 1016 Time Calculation (min) 38 min OT Evaluation Time Entry OT Evaluation (Moderate) Time Entry 30 OT Therapeutic Procedures Time Entry Self Care/Home Management (ADLs) Time Entry 8 General Subjective: Just anxious Pt pleasant and cooperative Family/Caregiver Present: No Objective: RN ok'd pt for therapy this date, pt agreeable. Co-eval with PT. Pt supine in bed upon arrival, retired to seated in recliner upon exit. Alarm on, RN aware, call light within reach, all needs addressed. Activity Orders: None Present Illness 53 year-old male admitted 09/23/24 as a transfer from H complaining of R tibial shaft transverse fx and R fibula transverse fx s/p fall in shower. Pt underwent R closed reduction and IMN on 09/24/24. Pt additionally with baseline DFU to L great toe. OT Diagnosis Decreased functional independence and performance of ADLs. Patient Active Problem List Diagnosis Non-ischemic cardiomyopathy (CMS/HCC) Diastolic dysfunction with chronic heart failure (CMS/HCC) Benign hypertensive cardiomyopathy with heart failure (CMS/HCC) Chronic combined systolic and diastolic congestive heart failure, NYHA class 2 (CMS/HCC) Fall at home, initial encounter Closed fracture of right fibula and tibia HTN (hypertension) PATEL (obstructive sleep apnea) Gastroesophageal reflux disease Obese Past Medical History: Diagnosis Date Hypertension Past Surgical History: Procedure Laterality Date ABDOMINAL SURGERY Precautions Precautions LE Weight Bearing Status: Right, WBAT, Left, PWB (Heel WB to LLE per Vascular PA via SecureChat) Medical Precautions: fall risk, IV, telemetry, bed alarm, chair alarm, oxygen (8L salter) Post-Surgical Precautions: R closed reduction and IMN on 09/24/24 Pain Pain Assessment Pain Assessment: 0-10 Pain Score: 7 Pain Type: Acute pain, Surgical pain Pain Location: Leg Pain Orientation: Right Pain Interventions: Ambulation/increased activity, Repositioned (RN aware, pt deferred cold pack) Cognition Cognition Overall Cognitive Status: Within Functional Limits Arousal/Alertness: Appropriate responses to stimuli Orientation Level: Oriented X4 Following Commands: Follows one step commands with increased time, Follows one step commands consistently Safety Judgment: Decreased awareness of need for assistance, Decreased awareness of need for safety Awareness of Errors: Assistance required to identify errors made Deficits: Fully aware of deficits Attention Span: Attends with cues to redirect Memory: Appears intact Problem Solving: Assistance required to identify errors made Communication: Intact Cognition Comments: Pt somewhat anxious with WB activities, required encouragement and increased time for all tasks. Cue provided for safety, positioning, WB status with fair carryover General Assessment General Assessment Hearing: Mild ALTURAS Skin Integrity: ALVARO wrap to RLE, DFU to L great toe Edema: Observed to RLE Hand Dominance: Right Home Living Home Living Type of Home: House Lives With: Spouse () Home Adaptive Equipment: None (Pt reports wheelchair is currently broken) Home Layout: Two level, Full bath main level, Able to live on main level with bedroom/bathroom, Stairs to alternate level with rails (Bedroom is on 2nd floor but able to stay on 1st floor, tub/shower unit is on 1st floor, walk-in shower is on 2nd floor) Alternate Level Stairs-Number of Steps: Full flight Home Access: Ramped entrance Bathroom Shower/Tub: Tub/shower unit, Walk-in shower Bathroom Toilet: Standard Bathroom Equipment: Grab bars in shower, Hand-held shower Bathroom Accessibility: Wheelchair fits in bathroom Prior Level of Function Prior Function Prior Functional Mobility: Independent without device Receives Help From: Family (Pt reports unable to assist, he is typically the primary caregiver, son assists PRN) ADL Assistance: Independent Homemaking Assistance: Independent Driving: Independent Prior Function Comments: Pt reports recent LLE fx in March 2024, requiring use of MWC or crutches for mobility d/t NWB LLE, had progressed to ambulation without AD Static Sitting Balance Static Sitting Balance Static Sitting-Balance Support: Feet supported Static Sitting-Level of Assistance: Distant supervision Dynamic Sitting Balance Dynamic Sitting Balance Dynamic Sitting-Balance Support: Feet supported, Unilateral upper extremity supported Dynamic Sitting Balance-Level of Assistance: Close supervision Static Standing Balance Static Standing Balance Static Standing-Balance Support: With device (Bariatric RW) Static Standing-Level of Assistance: Close supervision Static Standing-Comment/Number of Minutes: Pt does not maintain LLE heel WB de (more content not included)... [facility] 09-25-2024 Note Orthopaedic Surgery Orthopaedic Surgery Progress Note Date: 09/25/2024 SUBJECTIVE: Pain is well improved. Patient slept comfortably through the night. No acute events overnight. Denies numbness/tingling, fevers/chills, SOB. OBJECTIVE BP (!) 128/99 Pulse 92 Temp 36.6 ???C (97.9 ???F) (Oral) Resp 20 Ht 1.88 m (6' 2 ) Wt (!) 140 kg (309 lb 4.9 oz) SpO2 94% BMI 39.71 kg/m??? General: No acute distress, alert and cooperative with exam MSK: RLE - Alvaro bandage in place, no bleeding of strikethrough - Compartments of the left leg compressible, No pain with passive extension of the great toe - SILT in superficial peroneal, deep peroneal, sural, saph nerve dist - Motor function intact in tibial, deep peroneal, superficial peroneal dist - Brisk capillary refill Labs Lab Results Component Value Date WBC 14.37 (H) 09/25/2024 HGB 14.1 09/25/2024 HCT 45.4 09/25/2024 MCV 84.5 09/25/2024 PLT 205 09/25/2024 Lab Results Component Value Date GLU 124 (H) 01/31/2019 CALCIUM 8.9 09/25/2024 NA 134 (L) 09/25/2024 K 4.2 09/25/2024 CO2 32 (H) 09/25/2024 CL 97 (L) 09/25/2024 BUN 15 09/25/2024 CREATININE 0.91 09/25/2024 Imaging: XR TIBIA FIBULA 2 VIEWS RIGHT 09/24/2024 1:01 PM CLINICAL INDICATIONS: ORIF COMPARISON: Preoperative films FINDINGS: Intramedullary wendy in place. Multiple fracture planes of the tibia and fibula. Overall alignment is significantly improved compared to preoperative exam. IMPRESSION: Stable alignment following ORIF ASSESSMENT: Matty Garces is a 53 y.o. male POD 1 s/p R closed reduction and IMN PLAN PLAN: Compartments compressible at this time. Continue to ice and elevate right lower extremity Weightbearing Status: WBAT right lower extremity DVT prophylaxis: Ok to start chemical prophylaxis today. Will need 4 weeks of DVT ppx from day of surgery, Ortho prefers Lovenox however primary team may substitute for alternative as indicated Antibiotics: 24-hour postoperative Ancef Dressings will be first changed by orthopedic surgery team. Please reinforce as necessary PT OT postoperatively Pain control per primary. recommend multimodal Follow up: Patient will need to follow-up with Sandrine Hahn MD 10-14 days from day of surgery upon discharge. Luis Felipe Rivas MD 09/25/24 7:02 AM Ortho Pager: [phone] [facility] 09-25-2024 Note [facility] Trauma Surgery Progress Note Subjective Subjective: Patient seen on 5AB resting in bed. No complaints overnight. Discussed needing to work with therapy today to decide best discharge plan for him. Patient endorses some pain, but it is managed with his current pain regimen. Objective Objective Vitals: BP: (128-164)/(85-112) 128/99 (09/24 151) Systolic BP Percentile: -- Diastolic BP Percentile: -- Temp: [36.2 ???C (97.2 ???F)-36.9 ???C (98.4 ???F)] 36.6 ???C (97.9 ???F) (09/24 2016) Temp Source: Oral (09/24 2016) Heart Rate: [73-107] 92 (09/25 299) Resp: [8-21] 20 (09/25 299) SpO2: [92 %-100 %] 94 % (09/25 333) Height: [188 cm (6' 2 )] 188 cm (6' 2 ) (09/24 951) Weight: [138 kg (304 lb 3.8 oz)-140 kg (309 lb 4.9 oz)] 140 kg (309 lb 4.9 oz) (09/25 299) Amo Coma Scale Score: 15 Intake/Output Summary (Last 24 hours) at 09/25/2024 0622 Last data filed at 09/25/2024 0234 Gross per 24 hour Intake 1657 ml Output 1650 ml Net 7 ml Physical Exam Constitutional: General: He is not in acute distress. Appearance: He is obese. HENT: Head: Normocephalic and atraumatic. Right Ear: External ear normal. Left Ear: External ear normal. Nose: Nose normal. Mouth/Throat: Mouth: Mucous membranes are moist. Pharynx: Oropharynx is clear. Eyes: Extraocular Movements: Extraocular movements intact. Pupils: Pupils are equal, round, and reactive to light. Cardiovascular: Rate and Rhythm: Normal rate and regular rhythm. Pulses: Normal pulses. Heart sounds: Normal heart sounds. Pulmonary: Effort: Pulmonary effort is normal. Breath sounds: Normal breath sounds. Comments: 6LNC Abdominal: General: Bowel sounds are normal. There is no distension. Palpations: Abdomen is soft. Tenderness: There is no abdominal tenderness. Musculoskeletal: General: Signs of injury (RLE Alvaro wrapped from Thigh to toe. CDI.) present. Normal range of motion. Cervical back: Normal range of motion and neck supple. Skin: General: Skin is warm and dry. Capillary Refill: Capillary refill takes less than 2 seconds. Neurological: General: No focal deficit present. Mental Status: He is alert and oriented to person, place, and time. Mental status is at baseline. Psychiatric: Mood and Affect: Mood normal. Behavior: Behavior normal. Thought Content: Thought content normal. Judgment: Judgment normal. Labs: Recent Results (from the past 12 hour(s)) Basic metabolic panel Collection Time: 09/25/24 4:07 AM Result Value Ref Range Sodium 134 (L) 136 - 145 mmol/L Potassium 4.2 3.5 - 5.1 mmol/L Chloride 97 (L) 98 - 107 mmol/L CO2 32 (H) 21 - 31 mmol/L BUN 15 7 - 25 mg/dL Creatinine 0.91 0.70 - 1.30 mg/dL Glucose 141 (H) 70 - 100 mg/dL Calcium 8.9 8.6 - 10.3 mg/dL Anion Gap 9 7 - 20 mmol/L eGFR 100.2 >60.0 mL/min/1.73m*2 BUN/Creatinine Ratio 16.5 CBC Collection Time: 09/25/24 4:07 AM Result Value Ref Range Auto WBC 14.37 (H) 4.00 - 10.60 10*3/uL RBC 5.37 4.20 - 5.70 10*6/uL Hemoglobin 14.1 13.0 - 17.0 g/dL Hematocrit 45.4 39.0 - 55.0 % MCV 84.5 82.0 - 98.0 fL MCH 26.3 (L) 27.0 - 33.0 pg MCHC 31.1 (L) 32.0 - 35.0 g/dL RDW 14.9 11.5 - 15.0 % Platelets 205 150 - 400 10*3/uL Magnesium Collection Time: 09/25/24 4:07 AM Result Value Ref Range Magnesium 2.1 1.9 - 2.7 mg/dL Phosphorus Collection Time: 09/25/24 4:07 AM Result Value Ref Range Phosphorus 2.8 2.5 - 5.0 mg/dL Radiologic studies: XR tibia fibula 2 views right Result Date: 09/24/2024 Stable alignment following ORIF Electronically signed: Fahad Frazier. No CT results found for the past 24 hours No MRI results found for the past 24 hours EKG: Encounter Date: 09/23/24 ECG 12 lead Result Value Ventricular Rate 82 Atrial Rate 82 AL Interval 164 QRS DURATION 92 QT Interval 386 QTC CALCULATION(BAZETT) 450 P Cavalier 61 R-Cavalier 18 T Wave Cavalier 69 Impression Normal sinus rhythm Normal ECG When compared with ECG of 23-SEP-2024 14:15, No significant change was found Confirmed by Fabian RAM, JESSICA Carr ([id number]) on 09/24/2024 10:24:43 PM Assessment The patient is a 53 y.o. year old male who presented as a trauma following Fall and sustained the following injuries. Catalogue of Injuries Fall Comminuted right tib/fib fracture Incidental findings Enlarged right hilar node Enlarged prostate Medical issues CHF HTN Hypomagnesemia Plan Neuro: -Neuro checks q4hrs -Pain control multimodal with acetaminophen, gabapentin, robaxin, PRN roxicodone, and dilaudid PRN breakthrough. CV: Syncopal workup -Telemetry monitoring -Cardiology consulted for breanna-operative risk stratification. - Echo, carotids ordered for syncopal workup. Both pending. Respiratory: -Incentive spirometry every 1 hour while awake FEN/GI: -Check daily labs, replace electrolytes as appropriate -Diet: Regular -GI: Not indicated -Bowel regimen: Scheduled breanna-colace an (more content not included)... [facility] 09-24-2024 Note [facility] Vascular Surgery/Wound Care CONSULTATION Reason for Consult: Left foot ulcer Subjective History of Present Illness: Matty Garces is a 53 y.o. male with a PMH of DM, HTN, HF and recent cellulitis to [facility] . He is admitted for transverse fracture of the right tibial shaft and transverse fracture of the fibula. Patient reports the wound to the base of his first toe on his left foot is chronic for many years and nonhealing. Denies history of wound infection or osteomyelitis. Patient denies outpatient wound care. Patient does not have diabetic footwear. Reports he keeps the wound covered most of the time but does not have specific wound care. Denies pain to wound but states he reports decreased sensation due to neuropathy. Denies recent fever, chills, increased pain, drainage color changes or size/depth to the wound. Review of Systems Constitutional: Negative for chills and fever. Respiratory: Negative for shortness of breath. Cardiovascular: Negative for chest pain. Gastrointestinal: Negative for abdominal pain. Neurological: Negative for dizziness and light-headedness. Past Medical History: Diagnosis Date Hypertension Past Surgical History: Procedure Laterality Date ABDOMINAL SURGERY No Known Allergies Current Facility-Administered Medications: acetaminophen (Tylenol) tablet 1,000 mg, 1,000 mg, oral, q8h, ROMAIN Acevedo, 1,000 mg at 09/24/24 153 carvedilol (Coreg) tablet 25 mg, 25 mg, oral, BID with meals, ROMAIN Acevedo, 25 mg at 09/24/24 1728 ceFAZolin (Ancef) 3 g in sodium chloride 0.9 % 100 mL IVPB, 3 g, intravenous, q8h, Luis Felipe Rivas MD, Stopped at 09/24/24 1813 clonazePAM (KlonoPIN) tablet 0.5 mg, 0.5 mg, oral, Nightly, ROMAIN Acevedo, 0.5 mg at 09/24/242157 enoxaparin (Lovenox) syringe 40 mg, 40 mg, subcutaneous, BID, ROMAIN Acevedo, 40 mg at 09/24/242157 furosemide (Lasix) tablet 20 mg, 20 mg, oral, Daily, RMOAIN Acevedo, 20 mg at 09/24/24 0906 gabapentin (Neurontin) capsule 600 mg, 600 mg, oral, TID, ROMAIN Acevedo, 600 mg at 09/24/242157 HYDROmorphone (Dilaudid) injection 0.5 mg, 0.5 mg, intravenous, q3h PRN, ROMAIN Acevedo, 0.5 mg at 09/24/24 173 methocarbamol (Robaxin) tablet 500 mg, 500 mg, oral, 4x daily, ROMAIN Acevedo, 500 mg at 09/24/242157 ondansetron HCl (PF) (Zofran) injection 4 mg, 4 mg, intravenous, Once PRN, Jeffery Casey MD ondansetron ODT (Zofran-ODT) disintegrating tablet 4 mg, 4 mg, oral, q8h PRN OR ondansetron HCl (PF) (Zofran) injection 4 mg, 4 mg, intravenous, q6h PRN, Luis Felipe Rivas MD oxyCODONE (Roxicodone) immediate release tablet 10 mg, 10 mg, oral, q4h PRN, ROMAIN Acevedo, 10 mg at 09/24/24 1533 oxyCODONE (Roxicodone) immediate release tablet 5 mg, 5 mg, oral, q4h PRN, ROMAIN Acevedo Oxygen Therapy, , inhalation, Continuous, ROMAIN Hernandez, Oxygen On at 09/23/242044 polyethylene glycol (Glycolax) packet 17 g, 17 g, oral, Daily, ROMAIN Acevedo sennosides-docusate sodium (Beranna-Colace) 8.6-50 mg per tablet 1 tablet, 1 tablet, oral, BID, ROMAIN Acevedo, 1 tablet at 09/24/242157 Social History Socioeconomic History Marital status: Spouse name: Not on file Number of children: Not on file Years of education: Not on file Highest education level: Not on file Occupational History Not on file Tobacco Use Smoking status: Never Smokeless tobacco: Never Substance and Sexual Activity Alcohol use: Yes Comment: monthly Drug use: Yes Types: Marijuana Sexual activity: Not Currently Other Topics Concern Not on file Social History Narrative Not on file Social Determinants of Health Financial Resource Strain: Low Risk (09/23/2024) Overall Financial Resource Strain (CARDIA) Difficulty of Paying Living Expenses: Not very hard Food Insecurity: No Food Insecurity (09/23/2024) Hunger Vital Sign Worried About Running Out of Food in the Last Year: Never true Ran Out of Food in the Last Year: Not on file Transportation Needs: No Transportation Needs (09/23/2024) Transportation Lack of Transportation (Medical): No Lack of Transportation (Non-Medical): Not on file Physical Activity: Not on file Stress: Not on file Social Connections: Not on file Intimate Partner Violence: Unknown (09/23/2024) Humiliation, Afraid, Rape, and Kick questionnaire Fear of Current or Ex-Partner: No Emotionally Abused: Not on file Physically Abused: Not on file Sexually Abused: Not on file Housing Stability: Low Risk (09/23/2024) Housing Stability Vital Sign Unable to Pay for Housing in the Last Year: No Number of Times Moved in the Last Year: Not on file Homeless in the Last Year: No No family history on file. Objective Physical Exam Constitutional: Appearance: Normal appearance. HENT: Head: Normocephalic and atraumatic. Cardiovascular: Rate and Rhythm: Normal rate and regular rhythm. Pulmonary: Effort: Pulmonar (more content not included)... [facility] 09-24-2024 Note Orthopaedic Surgery Orthopaedic Surgery Progress Note Date: 09/24/2024 SUBJECTIVE: Pt reporting pain is improved since surgery. He continues to ice and elevate the leg. He denies numbness, tingling, pain uncontrolled by medication, or weakness. OBJECTIVE BP (!) 128/99 Pulse 107 Temp 36.6 ???C (97.9 ???F) (Oral) Resp 20 Ht 1.88 m (6' 2 ) Wt (!) 138 kg (304 lb 3.8 oz) SpO2 92% BMI 39.06 kg/m??? General: No acute distress, alert and cooperative with exam MSK: RLE - Alvaro bandage in place, no bleeding of strikethrough - Compartments of the left leg compressible - SILT in superficial peroneal, deep peroneal, sural, saph nerve dist - Motor function intact in tibial, deep peroneal, superficial peroneal dist - Brisk capillary refill Labs Lab Results Component Value Date WBC 7.56 09/24/2024 HGB 14.1 09/24/2024 HCT 46.4 09/24/2024 MCV 86.7 09/24/2024 PLT 175 09/24/2024 Lab Results Component Value Date GLU 124 (H) 01/31/2019 CALCIUM 9.1 09/24/2024 NA 137 09/24/2024 K 4.2 09/24/2024 CO2 35 (H) 09/24/2024 CL 98 09/24/2024 BUN 11 09/24/2024 CREATININE 1.02 09/24/2024 Imaging: XR TIBIA FIBULA 2 VIEWS RIGHT 09/24/2024 1:01 PM CLINICAL INDICATIONS: ORIF COMPARISON: Preoperative films FINDINGS: Intramedullary wendy in place. Multiple fracture planes of the tibia and fibula. Overall alignment is significantly improved compared to preoperative exam. IMPRESSION: Stable alignment following ORIF ASSESSMENT: Matty Garces is a 53 y.o. male POD 0 s/p R closed reduction and IMN PLAN PLAN: Compartments compressible at this time. Continue to ice and elevate right lower extremity Weightbearing Status: WBAT left lower extremity DVT prophylaxis: Will need 4 weeks of DVT ppx from day of surgery, Ortho prefers Lovenox however primary team may substitute for alternative as indicated Antibiotics: 24-hour postoperative Ancef Dressings will be first changed by orthopedic surgery team. Please reinforce as necessary PT OT postoperatively Pain control per primary. recommend multimodal Follow up: Patient will need to follow-up with Sandrine Hahn MD 10-14 days from day of surgery upon discharge. LAZ BRO MD 09/24/24 10:29 PM Ortho Pager: [phone] [facility] 09-24-2024 Note Patient: Matty Ward Procedure Summary Date: 09/24/24 Room / Location: [facility] OPERATING ROOM 05 / [facility] Operating Room Anesthesia Start: 1020 Anesthesia Stop: 1324 Procedure: CLOSED INSERTION, INTRAMEDULLARY WENDY, TIBIA (Right: Leg Lower) Diagnosis: Closed fracture of right tibia and fibula, initial encounter Fall at home, initial encounter (Closed fracture of right tibia and fibula, initial encounter [S82.201A, S82.401A]) (Fall at home, initial encounter [W19.XXXA, Y92.009]) Surgeons: Sandrine Hahn MD Responsible Provider: Jeffery Casey MD Anesthesia Type: general ASA Status: 3 - Emergent Anesthesia Type: general Vitals Value Taken Time BP 145/89 09/24/24 1420 Temp 36.3 ???C (97.3 ???F) 09/24/24 1420 Pulse 81 09/24/24 1420 Resp 16 09/24/24 1420 SpO2 96 % 09/24/24 1420 Anesthesia Post Evaluation Patient location during evaluation: PACU Patient participation: complete - patient participated Level of consciousness: sleepy but conscious Pain management: adequate Multimodal analgesia pain management approach Airway patency: Baseline PATEL. Cardiovascular status: acceptable Respiratory status: nonlabored ventilation and nasal cannula (On 4L NC, same as in preop) Hydration status: acceptable No notable events documented. [facility] 09-24-2024 Note Airway Date/Time: 09/24/2024 10:35 AM Urgency: elective General Information and Staff Patient location during procedure: OR Anesthesiologist: Jeffery Casey MD Resident/DUCT LAYER HELPER/CAA: Kenneth Marina MD Performed: resident/DUCT LAYER HELPER/CAA Indications and Patient Condition Indications for airway management: anesthesia Spontaneous Ventilation: absent Sedation level: deep Preoxygenated: yes Mask difficulty assessment: 3 - difficult mask (inadequate, unstable or two providers) +/- NMBA Final Airway Details Final airway type: endotracheal airway Successful airway: ETT Cuffed: yes Successful intubation technique: video laryngoscopy Facilitating devices/methods: intubating stylet Endotracheal tube insertion site: oral Blade: Edward Blade size: #4 ETT size (mm): 7.5 Cormack-Lehane Classification: grade IIa - partial view of glottis Placement verified by: chest auscultation and capnometry Measured from: lips ETT to lips (cm): 23 Number of attempts at approach: 1 Number of other approaches attempted: 0 [facility] 09-24-2024 Note Patient: Matty Ward Procedure Information Date/Time: 09/24/24 1000 Procedure: CLOSED INSERTION, INTRAMEDULLARY WENDY, TIBIA (Right: Leg Lower) Location: [facility] OPERATING ROOM 05 / [facility] Operating Room Surgeons: Sandrine Hahn MD Relevant Problems Anesthesia (+) PATEL (obstructive sleep apnea) Cardio Recent EKG shows normal sinus rhythm. Patient states has been told he has a valve problem but is unsure. METS > 4 (+) HTN (hypertension) GI (+) Gastroesophageal reflux disease Circulatory (+) Diastolic dysfunction with chronic heart failure (CMS/HCC) Musculoskeletal (+) Closed fracture of right fibula and tibia Endocrine/Metabolic (+) Obese Clinical information reviewed: Tobacco Allergies Meds Med Hx Surg Hx Fam Hx Soc Hx Past Medical History: Diagnosis Date Hypertension Past Surgical History: Procedure Laterality Date ABDOMINAL SURGERY No Known Allergies Estimated Date of Delivery: None noted. Patient Active Problem List Diagnosis Non-ischemic cardiomyopathy (CMS/HCC) Diastolic dysfunction with chronic heart failure (CMS/HCC) Benign hypertensive cardiomyopathy with heart failure (CMS/HCC) Chronic combined systolic and diastolic congestive heart failure, NYHA class 2 (CMS/HCC) Fall at home, initial encounter Closed fracture of right fibula and tibia HTN (hypertension) PATEL (obstructive sleep apnea) Gastroesophageal reflux disease Scheduled Meds:acetaminophen, 1,000 mg, oral, q8h carvedilol, 25 mg, oral, BID with meals ceFAZolin, 3 g, intravenous, Once clonazePAM, 0.5 mg, oral, Nightly furosemide, 20 mg, oral, Daily gabapentin, 600 mg, oral, TID methocarbamol, 500 mg, oral, 4x daily Oxygen Therapy, , inhalation, Continuous polyethylene glycol, 17 g, oral, Daily sennosides-docusate sodium, 1 tablet, oral, BID Continuous Infusions: PRN Meds:.PRN medications: HYDROmorphone, oxyCODONE, oxyCODONE BP (!) 151/112 Pulse 78 Temp 36.6 ???C (97.8 ???F) (Oral) Resp 14 Ht 1.88 m (6' 2 ) Wt (!) 138 kg (304 lb 7.3 oz) SpO2 96% BMI 39.09 kg/m??? Results from last 7 days Lab Units 09/24/24 0355 WBC AUTO 10*3/uL 7.56 HEMOGLOBIN g/dL 14.1 HEMATOCRIT % 46.4 PLATELETS AUTO 10*3/uL 175 Results from last 7 days Lab Units 09/24/24 0355 09/23/24 1403 SODIUM mmol/L 137 135* POTASSIUM mmol/L 4.2 4.3 CHLORIDE mmol/L 98 101 CO2 mmol/L 35* 27 BUN mg/dL 11 8 CREATININE mg/dL 1.02 0.96 CALCIUM mg/dL 9.1 8.9 TOTAL PROTEIN g/dL -- 7.2 BILIRUBIN TOTAL mg/dL -- 0.7 ALK PHOS U/L -- 98 ALT U/L -- 34 AST U/L -- 63* GLUCOSE mg/dL 103* 93 Encounter Date: 09/23/24 ECG 12 lead Result Value Ventricular Rate 97 Atrial Rate 97 AL Interval 156 QRS DURATION 84 QT Interval 368 QTC CALCULATION(BAZETT) 467 P Cavalier 54 R-Cavalier 60 T Wave Cavalier 12 Impression Normal sinus rhythm Normal ECG When compared with ECG of 13-JAN-2016 10:09, No significant change was found No echocardiogram results found for the past 12 months Physical Exam Airway Mallampati: IV TM distance: >3 FB Neck ROM: limited Cardiovascular - normal exam Dental Comments: Poor dentation throughout, missing most teeth Pulmonary (+) decreased breath sounds Comments: On 2L nasal canula Abdominal (+) obese Other findings: METS > 4, not limited by anginal symptoms. Anesthesia Plan ASA 3 - emergent general (GETA with standard ASA monitoring. PNB deferred PSR.) The patient is not a current smoker. Patient was previously instructed to abstain from smoking on day of procedure. Patient did not smoke on day of procedure. Education provided regarding risk of obstructive sleep apnea. intravenous induction Postoperative administration of opioids is intended. Trial extubation is planned. Anesthetic plan and risks discussed with patient. Use of blood products discussed with patient who consented to blood products. Plan discussed with attending and resident. Additional Equipment Requests [facility] 09-24-2024 Note Subjective Patient resting comfortably in bed. Admits to continued pain and spasms to the RLE overnight. Denies new aches/pain. Denies headache, neck pain, nausea, vomiting, abdominal pain Objective BP: (138-184)/(86-112) 141/92 (09/24 951) Systolic BP Percentile: -- Diastolic BP Percentile: -- Temp: [36.6 ???C (97.8 ???F)-36.9 ???C (98.4 ???F)] 36.9 ???C (98.4 ???F) (09/24 951) Temp Source: Temporal (09/24 951) Heart Rate: [63-98] 73 (09/24 951) Resp: [8-23] 19 (09/24 951) SpO2: [71 %-100 %] 98 % (09/24 951) Height: [188 cm (6' 2 )] 188 cm (6' 2 ) (09/24 951) Weight: [136 kg (300 lb)-138 kg (304 lb 7.3 oz)] 138 kg (304 lb 3.8 oz) (09/24 951) Kennedy Coma Scale Score: 15 Intake/Output Summary (Last 24 hours) at 09/24/2024 1022 Last data filed at 09/24/2024 0400 Gross per 24 hour Intake 308.33 ml Output 1900 ml Net -1591.67 ml Recent Results (from the past 12 hour(s)) Basic metabolic panel Collection Time: 09/24/24 3:55 AM Result Value Ref Range Sodium 137 136 - 145 mmol/L Potassium 4.2 3.5 - 5.1 mmol/L Chloride 98 98 - 107 mmol/L CO2 35 (H) 21 - 31 mmol/L BUN 11 7 - 25 mg/dL Creatinine 1.02 0.70 - 1.30 mg/dL Glucose 103 (H) 70 - 100 mg/dL Calcium 9.1 8.6 - 10.3 mg/dL Anion Gap 8 7 - 20 mmol/L eGFR 87.3 >60.0 mL/min/1.73m*2 BUN/Creatinine Ratio 10.8 CBC Collection Time: 09/24/24 3:55 AM Result Value Ref Range Auto WBC 7.56 4.00 - 10.60 10*3/uL RBC 5.35 4.20 - 5.70 10*6/uL Hemoglobin 14.1 13.0 - 17.0 g/dL Hematocrit 46.4 39.0 - 55.0 % MCV 86.7 82.0 - 98.0 fL MCH 26.4 (L) 27.0 - 33.0 pg MCHC 30.4 (L) 32.0 - 35.0 g/dL RDW 15.5 (H) 11.5 - 15.0 % Platelets 175 150 - 400 10*3/uL Magnesium Collection Time: 09/24/24 3:55 AM Result Value Ref Range Magnesium 2.2 1.9 - 2.7 mg/dL Phosphorus Collection Time: 09/24/24 3:55 AM Result Value Ref Range Phosphorus 4.0 2.5 - 5.0 mg/dL POCT glucose meter Collection Time: 09/24/24 10:01 AM Result Value Ref Range Glucose POC 100 70 - 105 mg/dL XR chest 1 view Result Date: 09/23/2024 Unremarkable single view chest Electronically signed: Fahad Frazier. CT head wo IV contrast Result Date: 09/23/2024 Impression: * Unremarkable unenhanced CT brain * Electronically signed: Fahad Frazier. Physical Exam: Tertiary examination General: Awake, Alert, No acute distress Head: Normocephalic And Atraumatic. Mid Face Stable. Nares Patent Bilaterally, No Epistaxis. Mouth Clear Of Foreign Bodies, No Lacerations Or Abrasions, Teeth Intact Eyes: PERRL. EOMI. Atraumatic Neurologic: Alert And Oriented X3. Moving Extremities And Following Commands. CN 2-12 Grossly Intact Neck: Cervical Spine Is Nontender To Palpation Without Step-Offs, Crepitus, Or Deformity. No Abrasions, Contusions, Or Ecchymosis Noted Back: Thoracic And Lumbar Spine Are Nontender To Palpation Without Step-Offs, Crepitus, Or Deformity. No Abrasions, Contusions, Or Ecchymosis Noted Lungs: Clear To Auscultation Bilaterally With Normal Work Of Breathing On 2L NC Chest Wall: Chest Rise Symmetrical. No Crepitus, Deformities, Lacerations, Or Abrasions Heart: RRR. Normal S1/S2. No Obvious Murmurs Abdomen: Soft, Nontender, And Nondistended With Normoactive Bowel Sounds. No Guarding, Non-Peritoneal Pelvis: Pelvis Is Stable To Compression GI/: No Blood At The Urinary Meatus. No Gross Hematuria Extremities: RLE in Splint, patient able to wiggle toes, LLE with chronic ulcers. Motor, And Sensation Intact Bilaterally Skin: Warm And Dry. Normal For Ethnicity Psych: Friendly, Cooperative Assessment/Plan Principal Problem: Fall at home, initial encounter Active Problems: Closed fracture of right fibula and tibia Assessment The patient is a 53 y.o. year old male who presented as a trauma following Fall and sustained the following injuries. Catalogue of Injuries Fall Comminuted right tib/fib fracture Incidental findings Enlarged right hilar node Enlarged prostate Medical issues CHF HTN Hypomagnesemia Plan Neuro: -Neuro checks q4hrs -Pain control: Multimodal pain control with scheduled tylenol, gabapentin, robaxin, PRN roxicodone, and dilaudid PRN breakthrough CV: Possible syncopal event v patient reported micro seizure -Telemetry monitoring -Cardiology consulted for breanna-operative risk stratification -Echo, carotids ordered for syncope workup Respiratory: -Incentive spirometry every 1 hour while awake FEN/GI: -Check daily labs, replace electrolytes as appropriate -Diet: NPO for OR with ortho -Bowel regimen: Scheduled dulcolax and miralax : -Is and Os q4hrs MSK: -Activity: NWB RLE -PT/OT eval and treat -Ortho consultation for Right comminuted tib/fib fractures. Recommendations: OR on 09/24 Prophylaxis: -GI: Not indicated -Bowel regimen: Scheduled Breanna-colace and miralax -DVT: SCDs, restart lovenox post-operatively Other: -Wound care consultation for chronic wounds to LLE, wounds (more content not included)... [facility] 09-24-2024 Note Physical Therapy Name: Matty Garces Date of : 1970 Today's Date: 09/24/24 Pt is unable to be seen for therapy at this time secondary to Surgery today for fixation of frature. Will check back and complete therapy session as appropriate. Check No Charge Time attempted: 0759 Janet Lovelace PT, MPT [facility] 09-24-2024 Note Orthopaedic Surgery Orthopaedic Surgery Progress Note Date: 09/24/2024 Surgery: 09/24/2024 - CLOSED INSERTION, INTRAMEDULLARY WENDY, TIBIA (R) SUBJECTIVE: NAEON. Patient reports some increased pain at the fracture site. However, he does report that this is not the most pain he has felt since his fracture. He has had no issues with the splint. He has not been adequately elevating the right lower extremity. Denies any numbness/tingling. OBJECTIVE BP (!) 151/112 Pulse 78 Temp 36.8 ???C (98.2 ???F) (Temporal) Resp 14 Ht 1.88 m (6' 2 ) Wt (!) 138 kg (304 lb 7.3 oz) SpO2 96% BMI 39.09 kg/m??? General: No acute distress, alert and cooperative with exam MSK: Right LE - Long leg splint in place. - ROM: Deferred due to known fracture - Compartments of leg and thigh are soft and compressible. No pain with passive extension of the foot digits - SILT in superficial peroneal, deep peroneal, sural, saph, tibial nerve distributions - Motor function intact to EHL/FHL - 5/5 strength to great toe extension/flexion - Foot is WWP with BCR x 5 Labs Lab Results Component Value Date WBC 7.56 09/24/2024 HGB 14.1 09/24/2024 HCT 46.4 09/24/2024 MCV 86.7 09/24/2024 PLT 175 09/24/2024 Lab Results Component Value Date GLU 124 (H) 01/31/2019 CALCIUM 9.1 09/24/2024 NA 137 09/24/2024 K 4.2 09/24/2024 CO2 35 (H) 09/24/2024 CL 98 09/24/2024 BUN 11 09/24/2024 CREATININE 1.02 09/24/2024 Lab Results Component Value Date INR 1.28 (H) 09/23/2024 Imaging: XR chest 1 view Result Date: 09/23/2024 Unremarkable single view chest Electronically signed: Fahad Frazier. XR tibia fibula 2 views right Result Date: 09/23/2024 As above Electronically signed: Fahad Frazier. CT abdomen pelvis w IV contrast Result Date: 09/23/2024 Impression: * Unremarkable CT abdomen pelvis as above. * Enlarged prostate. Correlation PSA is advised. * Electronically signed: Fahad Frazier. CT chest w IV contrast Result Date: 09/23/2024 1. Hyperinflation chronic lung disease. 2. Prominent right hilar node. Although this may be reactive given calcified contralateral hilar nodes, follow-up surveillance imaging is advised. Specifically CT scan of the chest with contrast 3-4 months is recommended. Electronically signed: Fahad Frazier. CT tibia fibula right wo IV contrast Result Date: 09/23/2024 1. Comminuted fracture of the tibia and fibular shafts as above. No findings of intra-articular involvement. 2. Advanced degenerative changes of the knee Electronically signed: Fahad Frazier. CT cervical spine wo IV contrast Result Date: 09/23/2024 Multilevel lower cervical spine fusion without acute fracture nor listhesis. Electronically signed: Fahad Frazier. CT head wo IV contrast Result Date: 09/23/2024 Impression: * Unremarkable unenhanced CT brain * Electronically signed: Fahad Frazier. No MRI results found for the past 24 hours ASSESSMENT: Matty Garces is a 53 y.o. male with a closed right distal 1/3 tibia and fibula fracture sustained after a slip and fall in the shower PLAN -Patient is still amenable to Operative intervention with insertion of right tibial intramedullary nail. -Plan for OR on today, informed consent was obtained -Cardiology consulted for preoperative risk stratification. Appreciate recommendations -Diet: N.p.o. -Weight bearing & activity status: NWB RLE -q2h compartment checks -DVT ppx: hold for OR -Pain control, -Aggressive ice, and elevation of extremity above level of the heart -Antibiotics: preoperative Ancef -PT/OT: Following surgery -Remainder of care per primary team Luis Felipe Rivas MD Orthopaedic Surgery, PGY-2 Ortho Pager [phone] 09/24/24 7:29 AM I am available via [email or web address] 6a-6p. May contact the on-call resident with any concerns via the Orthopaedic pager at any time. [facility] 07-04-2024 Telephone encounter Note left message regarding prescriptions earlier today and not being at pharmacy. I did call back and spoke to advising they were sent this afternoon. had mentioned Dr. Geiger was also going to start a Vitamin B to help boost energy in the morning. [facility] [place]. [facility] 07-04-2024 Miscellaneous Notes left message regarding prescriptions earlier today and not being at pharmacy. I did call back and spoke to advising they were sent this afternoon. had mentioned Dr. Geiger was also going to start a Vitamin B to help boost energy in the morning. [facility] in [place]. documented in this encounter [facility] 07-03-2024 History of Present illness Narrative Images from the original note [...] 1 mg, Oral, 2 times daily HYDROcodone-acetaminophen (Peck) 5-325 MG tablet hydrOXYzine pamoate (Vistaril) 25 [...] Wan ULNAR NERVE TRANSPOSITION Left 2014 UVULOPALATOPHARYNGOPLASTY Procedure:U.P.P.P.;Disease:Trach eal stenosis Social History Tobacco Use Smoking status: [...] reflexes: Alycia's absent. Ankle clonus absent. Coordination Ocfmlo-ci-samc, rapid alternating movements and gfvr-vj-uwwn normal bilaterally without dysmetria. Gait Normal casual, [...] up 3 months. documented in this encounter [facility] 03-26-2022 Note PROCEDURE: XR FOOT L [...] 2022-03-26 10:47 [facility] 02-25-2022 Hospital Discharge instructions Patient Education 02/25/2022 11:09:43 Hydrocele, Adult [...] Watch the hydrocele for any changes. Take [id number] and prescription medicines only as told by [...] 02/17/2011 Document Revised: 09/10/2018 Document Reviewed: 09/10/2018 [employer] Patient Education 2020 [employer] Follow Up Care 01/28/2022 10:36:35 With:Mitchel DELGADO, Viola Cohn, URL, URO Address: When: Unknown [facility] Evaluation + Plan note No data available for this section [facility] Evaluation note No assessment inform ation available [facility] Work Phone: Evaluation note Diagnosis Excessive [...] maintaining sleep [facility] Diagnosis Excessive daytime sleepiness Obstructive sleep apnea Obstructive sleep apnea (adult) (pediatric) documented in this encounter [facility] No data available for this section [facility] Summary Purpose Family History No Family History Records FoundNo Family History Records FoundNo Family History Records FoundNo Family History Records FoundNo Family History Records FoundNo Family History Records FoundNo Family History Records Found Advance Directives No Advanced Directives Records Found Advance Directive Response Recorded Date/ Time Advance Directives No May 12:42pm Advance Directive Response Recorded Date/ Time Advance Directives No May 11:42am Hospital Course Note MR#: [id number] [facility] Pt. Name: Matty Garces Admitted: 01/30/2019 Discharged: 02/01/2019 Date of : 1970 Physician: Luciano Davis M.D. DISCHARGE SUMMARY PRINCIPAL DIAGNOSIS: Cervical hardware [...] DATE CREATED AUTHOR AUTHOR'S ORGANIZ ATION 02/27/2022 [facility] DATE CREATED AUTHOR AUTHOR'S ORGANIZ ATION 12/08/2022 [facility] DATE CREATED AUTHOR AUTHOR'S ORGANIZ ATION 12/03/2023 [facility] DATE CREATED AUTHOR AUTHOR'S ORGANIZ ATION 07/05/2024 [facility] EPIC DATE CREATED AUTHOR AUTHOR'S ORGANIZ ATION 09/26/2024 [facility] DATE CREATED AUTHOR AUTHOR'S ORGANIZ ATION 10/05/2024 [facility] Care Team (unrecognized sect ion and content) Team Status: Inactive Member Role Status Dates Trey Vallejo DPM MS Attending Provider Active Start: January 03, 2024 End: January 03, 2024 Gm Relationship Specialty Start Date End Date Venus Jaeger MD [address] [place] [address] PCP - General Family Medicine 01/10/24 Gm Relationship Specialty Start Date End Date Venus Jaeger MD [address] [place] [address] PCP - General Family Medicine 01/10/24 Gm Relationship Specialty Start Date End Date Venus Jaeger MD [address] [place] [address] PCP - General Family Medicine 01/10/24 Gm Relationship Specialty Start Date End Date Venus Jaeger MD [address] [place] [address] PCP - General Family Medicine 01/10/24 Team Status: Inactive Member Role Status Dates Trey Vallejo DPM MS Attending Provider Active Start: September 21, 2024 End: September 21, 2024 Gm Relationship Specialty Start Date End Date Venus Jaeger MD [address] [place] [address] PCP - General Family [facility] 01/10/24 Goals (unrecognized section and content) Goals [...] BE BASED ON THE PRIMARY CLINICAL RECORDS. [employer] [facility]. provides no warranty or guarantee of the accuracy or completeness of information in this document.
[2024-10-07 15:48] LABS: Basophils Absolute Auto 0.1 10^3/uL (0.0-0.1); Basophils Percent Auto 0.8 % (0.2-2.0); Eosinophils Absolute Auto 0.2 10^3/uL (0.0-0.7); Eosinophils Percent Auto 1.7 % (0.9-7.0); Hematocrit 41.7 % (42.0-54.0); Hemoglobin 12.7 g/dL (14.0-18.0); Immature Granulocytes Abs Auto 0.12 10^3/uL (0.00-0.03); Immature Granulocytes Pct Auto 1.4 % (0.0-0.5); Lymphocytes Absolute Auto 0.8 10^3/uL (1.2-3.8); Lymphocytes Percent Auto 8.9 % (20.5-60.0); Mean Corpuscular HGB Conc 30.5 g/dL (29.9-35.2); Mean Corpuscular Hemoglobin 26.8 pg (25.9-34.0); Mean Platelet Volume 9.1 fL (9.5-13.5); Monocytes Absolute Auto 0.6 10^3/uL (0.3-0.8); Monocytes Percent Auto 6.6 % (1.7-12.0); Neutrophils Absolute Auto 7.1 10^3/uL (1.4-6.5); Neutrophils Percent Auto 80.6 % (43.0-75.0); Platelet Count 251 10^3/uL (150-450); Red Blood Count 4.74 10^6/uL (4.70-6.10); Red Cell Distribution Width 15.7 % (11.0-15.0); White Blood Count 8.8 10^3/uL (4.0-11.0)
[2024-10-07] MEDS: ONDANSETRON PF 4 MG/2 ML VIAL IV (15:48)
[2024-10-07 16:09] LABS: Alanine Aminotransferase 23 U/L (16-63); Albumin Globulin Ratio 0.8; Albumin Level 3.3 g/dL (3.4-5.0); Alkaline Phosphatase 151 U/L (46-116); Anion Gap 8.7; Aspartate Amino Transferase 19 U/L (15-37); BUN Creatinine Ratio 9.3; Bilirubin Total 0.6 mg/dL (0.2-1.0); C Reactive Protein 2.61 mg/dL (<=0.50); Calcium 9.7 mg/dL (8.5-10.1); Carbon Dioxide 35.2 mmol/L (21.0-32.0); Chloride 100 mmol/L (98-107); Estimated GFR (African America >60 (>=60 mL/min/1.73m^2); Estimated GFR (Non-African Ame 58 (>=60 mL/min/1.73m^2); Globulin 4.3 g/dL; Glucose 98 mg/dL (74-106); Potassium 3.9 mmol/L (3.5-5.1); Sodium 140 mmol/L (136-145); Total Protein 7.6 g/dL (6.4-8.2)
[2024-10-07 16:17] LABS: PCO2 VBG 51.7 mmHg (40.0-52.0); pH VBG 7.444 (7.330-7.430)
[2024-10-07 16:24] LABS: Erythrocyte Sedimentation Rate 69 mm/hr (<=20)
[2024-10-07 17:16] VITALS: BP 97/57; PULSE 66; O2SAT 99
[2024-10-07] MEDS: PIPERACILLIN SODIUM/TAZOBACTAM 4.5 GM in 0.9 % SODIUM CHLORIDE 50 ML IV (17:41)
[2024-10-07] MEDS: VANCOMYCIN HCL 2,000 MG in 0.9 % SODIUM CHLORIDE 500 ML 250 MG IV (18:08)
[2024-10-07 18:15] VITALS: TEMP 36.8
[2024-10-07 18:16] VITALS: BP 113/46; PULSE 89; O2SAT 94
[2024-10-07] MEDS: OXYCODONE HCL 5 MG TABLET PO (19:26)
[2024-10-07 20:02] VITALS: BP 100/56; PULSE 72; O2SAT 94
[2024-10-07 21:10] VITALS: BP 111/49; PULSE 87; TEMP 36.8; O2SAT 95
[2024-10-08 02:25] VITALS: BP 118/63; PULSE 90; O2SAT 93
[2024-10-08] MEDS: PIPERACILLIN SODIUM/TAZOBACTAM 3.375 GM in 0.9 % SODIUM CHLORIDE 50 ML IV (04:08)
[2024-10-08 04:43] VITALS: BP 118/68; PULSE 90; O2SAT 93
== END 2024-10-08 04:43 | disposition short-term general hospital (02) ==
PROVIDERS: Physician Assistant; Emergency Provider Emergency Medicine; PCP Family Medicine
DX: T81.40XA Infection following a procedure, unspecified, initial encounter (principal); L03.115 Cellulitis of right lower limb; M79.604 Pain in right leg; Z98.890 Other specified postprocedural states; Z98.1 Arthrodesis status; Z91.199 Patient's noncompliance with other medical treatment and regimen due to unspecified reason
CPT/HCPCS: 36415; 80053; 82800; 83605; 85025; 85652; 86140; 87040; 93971; 96365; 96366; 96368; 96375; 99285; J2405; J2543; J3370

== ENCOUNTER 2024-10-18 11:53 | Outpatient (OUT) | payer MEDICAID, SELFPAY | END 2024-10-18 11:54 | disposition home or self-care (01) | LOC: WC 10-20 11:53 | PROVIDERS: PCP Family Medicine; Visit Provider Physician Assistant | DX: E11.621 Type 2 diabetes mellitus with foot ulcer (principal); L97.522 Non-pressure chronic ulcer of other part of left foot with fat layer exposed | CPT/HCPCS: G0463 ==

== ENCOUNTER 2024-11-08 10:23 | Outpatient (OUT) | payer MEDICAID, SELFPAY ==
--- OUTSIDE RECORDS SUMMARY | 2024-11-08 10:43 | XMS_ITS | CCD ---
Author Organization [facility] CliniSyga Care Team Providers Care Livestock Farmers Name Role Phone UNKNOWN, PROVIDER Admitting Unavailable UNKNOWN, PROVIDER Attending Unavailable VENUS JAEGER Referring Unavailable VENUS JAEGER Primary Care Unavailable [place] Procedure Practitioner Unavailab le UNKNOWN, PROVIDER Surgeon Unavailable [place] Procedure Practitioner Unavailab le SANDRA BILL Surgeon Unavailable UNKNOWN, PROVIDER Admitting Unavailable UNKNOWN, PROVIDER Attending Unavailable VENUS JAEGER Referring Unavailable VENUS JAEGER Primary Care Unavailable [place] Procedure Practitioner Unavailab le UNKNOWN, PROVIDER Surgeon Unavailable Venus Jaeger Primary Care Physician [phone] DONOVAN Admitting Unavailable HOY [...] HOUGH Consulting Unavailable MAYRA BERNAL Consulting Unavailable Giedraitis , Andrius Berkowitz Attending Unavailable Giedraitis , Andrius Woo Attending Unavailable Giedraitis , Andrius Woo Attending Unavailable Giedraitis , Andrius Vytmiguelina Attending Unavailable Giedraitis , Andrius Vytmiguelina Attending Unavailable Highlander, CHINO Smith Attending Provider Venus Jaeger MD Primary Care Provider [phone] RUBÉN GEIGER Attending Unavailable RUBÉN GEIGER Attending Unavailable APLING, VALENCIA Pate Attending Unavailable APLING, VALENCIA B Referring Unavailable GEIGERRUBÉN FRANK Attending Unavailable RUBÉN GEIGER Attending Unavailable Highlander DPKeri, Trey Smith Attending Provider Trey Vallejo Admitting Unavailable Highlander, Trey Smith Attending Unavailable Highlander, Trey Smith Attending Unavailable HighlanderTrey Admitting Unavailable MARIANNA SUAREZ Referring Unavailable SUYAPA, SHIN Referring Unavailable SUYAPA, SHIN Referring Unavailable SELMA, SANDRINE Referring Unavailable MAI, LEONIE Referring Unavailable SUYAPA, SHIN Referring Unavailable SUYAPA, SHIN Referring Unavailable HINDERS, MARILOU Referring Unavailable AMEGEE, TONIO Referring Unavailable AMEGEE, TONIO Referring Unavailable SELMA, SANDRINE Referring Unavailable AMEGEE, TONIO Referring Unavailable SELMA, SANDRINE Referring Unavailable SUYAPA, SHIN Referring Unavailable KATKOSERA Referring Unavailable HERNANDEZ, LICO Admitting Unavailable HERNANDEZ, LICO Attending Unavailable HAYARMANDO Referring Unavailable SHAUNFABIOLA Admitting Unavailable CARENAROLDO Attending Unavailable SUYAPA, SHIN Referring Unavailable Allergies Allergy Classification Reported Allergen(s) Allergy Type Date of Onset Reaction(s) Facility (1 source) Aspartame Drug Allergy 08-17-20 [facility] (1 source) avoid; Translations: [Unknown] Propensity to adverse reactions (disorder) 08-17-20 18 [facility] (1 source) vitamin B12; Translations: [cyanocobalamin] Drug Allergy Unknown (qualifier value) [facility] (1 source) Acetaminophen / HYDROcodone Drug Allergy [facility] (1 source) Corticosteroids Drug allergy (disorder) [facility] (1 source) fentaNYL Drug Allergy [facility] (1 source) Misc-Food; Translations: [Misc-Food] Food allergy (disorder) [facility] (7 sources) fentaNYL Drug Allergy 07-08-20 Unknown [facility] (7 sources) HYDROcodone Drug Allergy 07-08-20 Unknown [facility] (7 sources) Morphine And Codeine Drug Allergy 07-08-20 Unknown [facility] (7 sources) Other Propensity to adverse reactions 07-08-20 [facility] (1 source) Corticosteroids Drug allergy (disorder) 05-14-20 [facility] Repository Medications Current Medications Medication Drug Class(es) Dates Sig (Normalized) Sig (Original) acetaminophen 325 mg / HYDROcodone bitartrate 5 mg oral tablet (7 sources) Opioid Agonist Start: 03-20-2024 HYDROcodone-acet aminophen ([place]) 5-325 MG tablet 03/20/2024 Active amantadine hydrochloride 100 mg oral tablet (7 sources) Influenza A M2 Protein Inhibitor Start: 04-10-2024 End: 04-10-2025 take 1 tablet by mouth in the morning amantadine (Symmetrel) 100 MG tablet Indications: Excessive daytime sleepiness , Primary insomnia Take 1 tablet (100 mg) by mouth in the morning and at noon 180 tablet 3 04/10/2024 04/10/2025 Active aspirin 81 mg delayed release oral tablet (9 sources) Platelet Aggregation Inhibitor, Nonsteroidal Anti-inflammatory Drug Start: 05-14-2018 take 1 tablet by mouth once daily Aspirin 81 mg Tablet,Delayed Release (Dr/Ec) Active 81 MG PO Daily May 13, 2018 11:00pm ASPIRIN 81 MG ch ewable tablet Chew 81 mg in the morning. Active B-D 3CC LUER-SAYRA SYR 23GX1 23G X 1 3 ML misc (7 sources) Start: 05-18-2023 B-D 3CC LUER-L OK SYR 23GX1 23G X 1 3 ML misc USE 1 SYRINGE INTRAMUSCULARLY ONCE A WEEK 05/18/2023 Active Biotin (10 sources) Start: 02-26-2022 BIOTIN BIOTIN Start Date: 02/26/22 Status: Ordered Start: 05-14-2018 take 1 tablet by mouth once da rodney Biotin 10 mg Tablet Active 10 MG PO Daily May 13, 2018 11:00pm carvedilol 25 mg oral tablet (10 sources) alpha-Adrenergic Jorge L, beta-Adrenergic Jorge L Start: 02-26-2022 carvedilol 25 mg Tab Refills(s) 0 Start Date: 02/26/22 Status: Ordered Start: 05-14-2018 [facility] Carvedilol 12.5 mg Tablet Active 12.5 MG PO Twice daily May 13, 2018 11:00pm celecoxib 100 mg oral capsule (7 sources) Nonsteroidal Anti-inflammatory Drug CeleBREX 100 MG capsule 1 (one) time each day at the same time Active cholecalciferol 0.125 mg oral capsule (7 sources) Vitamin D Start: 2023 cholecalciferol (Vitamin D-3) 125 MCG (5000 UT) capsule 03/15/2024 Active citalopram 20 mg oral tablet (7 sources) Serotonin Reuptake Inhibitor Start: 2022 CeleXA 20 MG tablet 1 (one) time each day at the same time. 06/02/2023 Active clonazePAM 1 mg oral tablet (11 sources) Benzodiazepine Start: 2023 End: 2024 take 1 tablet by mouth at bedtime clonazePAM (KlonoPIN) 1 MG tablet Indications: Primary insomnia Take 1 tablet (1 mg) by mouth at bedtime 30 tablet 2 07/04/2024 Active Start: 02-26-2022 ClonazePAM 0.5 mg Tab Refills(s) 0 Start Date: 02/26/22 Status: Ordered Start: 05-14-2018 take 2 tablets by [facility] at bedtime Clonazepam 0.5 mg Tablet Active [...] 2018 11:00pm doxazosin 8 mg oral tablet (8 sources) alpha-Adrenergic Jorge L Start: 02-26-2022 doxazosin 8 mg oral tablet Refills(s) 0 Start Date: 02/26/22 Status: Ordered doxepin hydrochloride 10 mg oral capsule (9 sources) Tricyclic Antidepressant Start: 02-26-2022 doxepin 10 mg Cap Refills(s) 0 Start Date: 02/26/22 Status: Ordered DULoxetine 60 mg delayed release oral capsule (7 sources) Serotonin and Norepinephrine Reuptake Inhibitor take 1 capsule by mouth in the morning DULoxetine (Cymbalta) [address] capsule Take 60 mg by mouth in the morning and 60 mg in the evening. Active escitalopram 20 mg oral tablet (7 sources) Serotonin Reuptake Inhibitor take 1 tablet by mouth in the morning escitalopram (Lexapro) 20 MG tablet Take 20 mg by mouth in the morning. Active furosemide 20 mg oral tablet (7 sources) Loop Diuretic take 1 tablet by mouth in the morning furosemide (Lasix) 20 MG tablet Take 20 mg by mouth in the morning. Active gabapentin 600 mg oral tablet (10 sources) Anti-epileptic Agent Start: 05-14-2018 take 1 tablet by mouth three times daily Gabapentin 600 mg Tablet Active 600 MG PO Three times daily May 13, 2018 11:00pm glycopyrrolate 1 mg oral tablet (8 sources) Start: 01-22-2023 take 1 tablet by mouth in the morning glycopyrrolate (Robinul) 1 MG tablet Take 1 mg by mouth in the morning and 1 mg before bedtime. 01/22/2023 Active Start: 02-26-2022 glycopyrrolate 1 mg oral tablet Refills(s) 0 Start Date: 02/26/22 Status: Ordered hydrOXYzine pamoate 25 mg oral capsule (7 sources) Antihistamine Start: 05-11-2024 take 1 capsule [...] 11:00pm meclizine hydrochloride 25 mg chewable tablet (7 sources) Antiemetic Meclizine HCl 25 MG chewable tablet Chew 25 mg 1 (one) time each day at the same time. Active melatonin 10 mg oral capsule (9 sources) Start: 07-14-2023 End: 07-04-2025 take 1 capsule by mouth at bedtime Melatonin 10 MG capsule Indications: Primary insomnia Take 10 mg by mouth at bedtime 90 capsule 3 07/04/2024 07/04/2025 Active modafinil 200 mg oral tablet (11 sources) Sympathomimetic-lik e Agent Start: 04-10-2024 End: 12-31-2024 take 1 tablet by mouth in the morning modafinil (Provigil) 200 MG tablet Indications: Excessive daytime sleepiness , Obstructive sleep apnea Take 1 tablet (200 mg) by mouth in the morning and at noon 180 tablet 10/02/2024 12/31/2024 Active Start: 02-26-2022 modafinil 200 mg Tab Refills(s) 0 Start Date: 02/26/22 Status: Ordered Multiple Vitamins-Minerals (Multi For Him 50+) tablet (7 sources) Multiple Vitamins-Minerals (Multi For Him 50+) tablet as directed Orally Active omeprazole 40 mg delayed release oral capsule (2 sources) Proton Pump Inhibitor Start: 018 take 1 capsule by mouth twice daily Omeprazole 40 mg Capsule,Delayed Release(Dr/Ec) Active 40 MG PO Twice daily May 13, 2018 11:00pm ondansetron 4 mg disintegrating oral tablet (16 sources) Serotonin-3 Receptor Antagonist Start: 024 ondansetron ODT (Zofran-ODT) 4 MG disintegrating tablet 03/15/2024 Active Start: 05-14-2018 Ondansetron 4 mg Tablet,Disintegrating Active 4 MG PO every 6 to 8 hours as needed for Nausea And Vomiting May 13, 2018 11:00pm ondansetron (Zof ran) 4 MG tablet Take 4 mg by mouth if needed. Active OXcarbazepine 300 mg oral tablet (7 sources) Anti-epileptic Agent take 1 tablet by mouth at bedtime OXcarbazepine (Trileptal) 300 MG tablet Take 300 mg by mouth at bedtime. Active pantoprazole 40 mg delayed release oral tablet (8 sources) Proton Pump Inhibitor Start: Pantoprazole [address] Tab Refills(s) 0 Start Date: 02/26/22 Status: Ordered potassium chloride 10 meq extended release oral tablet (7 sources) Start: take 1 tablet by mouth at mealtime potassium chloride CR (Klor-Con) 10 MEQ ER tablet Take 10 mEq by mouth in the morning. Take with food. . 02/22/2023 Active sennosides, fdc 8.6 mg oral tablet (7 sources) Start: senna (Senokot) 8.6 MG tablet 03/15/2024 Active simvastatin 20 mg oral tablet (10 sources) HMG-CoA Reductase Inhibitor Start: take 1 tablet by mouth once daily Simvastatin 20 mg Tablet Active 20 MG PO Daily May 13, 2018 11:00pm SUMAtriptan 100 mg oral tablet (9 sources) Serotonin-1b and Serotonin-1d Receptor Agonist Start: Sumatriptan Succinate 100 mg Tablet Active 100 MG PO EVERY 2-4 HOURS as needed for Migraine Headache May 13, 2018 11:00pm take 1 tablet by mouth once ALAINA triptan (Imitrex) 100 MG tablet Take 100 mg by mouth 1 (one) time if needed. Active 1 ml testosterone cypionate 200 mg/ml injection (7 sources) Androgen testosterone cyp ionate (Depo-Testosterone) 200 MG/ML injection Inject 200 mg into the shoulder, thigh, or buttocks every 14 (fourteen) days. Active thiamine 100 mg oral tablet (3 sources) Start: End: 025 take 1 tablet by mouth once daily thiamine (Vitamin B-1) 100 MG tablet Indications: Excessive daytime sleepiness Take 1 tablet (100 mg) by mouth Daily 30 tablet 11 07/05/2024 07/05/2025 Active tiZANidine 4 mg oral capsule (9 sources) Central alpha-2 Adrenergic Agonist Start: take 1 capsule by mouth at bedtime Tizanidine 4 mg Capsule Active 4 MG PO Bedtime May 13, 2018 11:00pm take 1 tablet by mouth at bedtim e tiZANidine (Zanaflex) 4 MG tablet Take 4 mg by mouth at bedtime. Active Vit D3-Folic Igwu-I3-P3-B12 (1 source) Start: 05-14-2018 take 1 tablet by mouth once daily Vit D3-Folic Azfk-A2-K0-B12 Active 1 TAB PO Daily May 14, 2018 12:00am Vit D3-Folic Icqy-D2-O7-B12 2,000-800-0.32 unit-mcg-mg Tablet (1 source) Start: 05-14-2018 take 1 tablet by mouth once daily Vit D3-Folic Ubar-K8-S3-B12 2,000-800-0.32 unit-mcg-mg Tablet Active 1 TAB PO Daily May 13, 2018 11:00pm Problems Active Problems Problem Classification Problem Date Documented Date Episodic/Chronic Anxiety disorders (8 sources) Anxiety disorder, unspecified; Translations: [Anxiety disorder] Onset: 6 06-21-2023 Chronic Blindness and vision defects (1 source) Unspecified visual loss; Translations: [UNSPECIFIED VISUAL LOSS] Onset: 2 Chronic Delirium, dementia, and amnestic and other cognitive disorders (7 sources) 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; Translations: [Unspecified mental disorder due to known physiological condition] Onset: 1 06-21-2023 Chronic Diabetes mellitus without complication (15 sources) Type 2 diabetes mellitus without complications; [...] WITHOUT ESOPHAGITIS] Onset: 3 Chronic Essential hypertension (8 sources) Essential (primary) hypertension; Translations: [Hypertensive disorder] Onset: 9 06-21-2023 Chronic Fracture of lower limb (4 sources) Unspecified fracture of shaft of right tibia, initial encounter for closed fracture; Translations: [Unspecified fracture of shaft of right fibula, initial encounter for closed fracture] Onset: 5 Episodic Headache; including migraine (7 sources) Migraine; Translations: [Migraine, unspecified, not intractable, without status migrainosus] Onset: 7 06-21-2023 Chronic Hyperplasia of prostate (1 source) Benign prostatic hypertrophy without outflow obstruction; Translations: [Benign prostatic hyperplasia without lower urinary tract symptoms] Onset: 2 Chronic Miscellaneous mental health disorders (10 sources) Primary insomnia; Translations: [Primary insomnia] Onset: 3 03-11-2023 Chronic Mood disorders (1 source) Major depressive disorder, single episode, unspecified; Translations: [MARITZA DEPRESS D/O SINGLE EPIS UNS] Onset: 2 Chronic Mood disorders (1 source) Mood disorders; Translations: [DEPRESSION UNSPECIFIED] Onset: 3 Osteoarthritis (8 sources) Unspecified osteoarthritis, unspecified site; Translations: [Arthritis of right acromioclavicular joint] Onset: 8 06-21-2023 Chronic Other aftercare (1 source) nursing home (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; Translations: [SENIOR CARE 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 ASPIRIN] Onset: 3 Episodic Other aftercare (1 source) Other termite renewal inspector (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) drug therapy; Translations: [OTH SENIOR CARE [...] Onset: 3 Episodic Other male genital disorders (7 sources) Secondary erectile dysfunction; Translations: [Male erectile [...] Onset: 2 Chronic Other nervous system disorders (7 sources) Carpal tunnel syndrome of right wrist; Translations: [Carpal tunnel syndrome, right upper limb] Onset: 8 06-21-2023 Chronic Other nervous system disorders (9 sources) Lesion of ulnar nerve, right upper limb; Translations: [Lesion of ulnar nerve] Onset: 3 06-21-2023 Chronic Other nervous system disorders (7 sources) Chronic pain; Translations: [Other chronic pain] Onset: 8 06-21-2023 Chronic Other nervous system disorders (7 sources) Ulnar nerve entrapment; Translations: [Lesion of ulnar nerve, unspecified upper limb] Onset: 3 06-21-2023 Chronic Other nervous system disorders (1 source) Cataplexy and narcolepsy; Translations: [Narcolepsy with cataplexy] Onset: 5 10-04-2024 Chronic Residual codes; unclassified (1 source) Sleep apnea, unspecified; Translations: [SLEEP APNEA UNSPECIFIED] Onset: 3 Chronic Residual codes; unclassified (11 sources) Daytime somnolence; Translations: [Other hypersomnia] Onset: 3 03-11-2023 Chronic Residual codes; unclassified (10 sources) Obstructive sleep apnea syndrome; Translations: [Obstructive sleep apnea (adult) (pediatric)] Onset: 3 06-21-2023 Chronic Residual codes; unclassified (2 sources) Obstructive sleep apnea (adult) (pediatric); Translations: [Obstructive sleep apnea (adult) (pediatric)] Onset: 5 Chronic Skin and subcutaneous tissue infections (11 sources) Cellulitis; Translations: [Cellulitis, unspecified] Onset: 3 06-21-2023 Episodic Spondylosis; intervertebral disc disorders; other [...] Date Episodic/Chronic Coma; stupor; and brain damage (7 sources) Clouded consciousness; Translations: [Stupor] Onset: 03-03-2012 06-21-2023 Episodic E Codes: Natural/environment (1 source) Exposure to other specified factors, initial encounter; Translations: [EXPOSURE OTHER SPEC FACTORS INITIAL] Onset: 04-27-2022 Episodic Gastritis and duodenitis (7 sources) Gastritis; Translations: [Gastritis, unspecified, without bleeding] Onset: 05-09-2013 06-21-2023 Episodic Heart valve disorders (7 sources) Systolic murmur; Translations: [Cardiac murmur, unspecified] Onset: 06-24-2023 06-24-2023 Episodic Immunizations and screening for infectious disease (1 source) Encounter for immunization; Translations: [ENCOUNTER FOR IMMUNIZATION] Onset: 04-27-2022 Episodic Inflammatory conditions of male genital organs (4 sources) Inflammatory disorders of scrotum; Translations: [INFLAMMATORY DISORDERS OF SCROTUM] Onset: 01-04-2022 Episodic Malaise and fatigue (7 sources) Fatigue; Translations: [Other fatigue] Onset: 03-03-2012 06-21-2023 Episodic Noninfectious gastroenteritis (7 sources) Gastroenteritis; Translations: [Noninfective gastroenteritis and colitis, unspecified] Onset: 04-10-2015 06-21-2023 Episodic Nonspecific chest pain (14 sources) Chest discomfort; Translations: [Other chest pain] Onset: 11-30-2011 06-21-2023 Episodic Open wounds of extremities (4 sources) Puncture wound without foreign body, left foot, initial encounter; Translations: [PUNCT WOUND W/O FB LT FOOT INITIAL] Onset: 03-26-2022 Episodic Other circulatory disease (7 sources) Capillary hemangioma; Translations: [Nevus, non-neoplastic] Onset: 05-28-2008 06-21-2023 Episodic Other connective tissue disease (7 sources) Spasm of cervical paraspinous muscle; Translations: [Other muscle spasm] Onset: 03-11-2023 03-11-2023 Episodic Other connective tissue disease (7 sources) Bursitis; Translations: [Bursopathy, unspecified] Onset: 02-27-2011 06-21-2023 Episodic Other connective tissue disease (7 sources) Foot pain; Translations: [Pain in unspecified foot] Onset: 10-07-2012 06-21-2023 Episodic Other connective tissue disease (7 sources) Muscle pain; Translations: [Myalgia, unspecified site] Onset: 12-02-2012 06-21-2023 Episodic Other connective tissue disease (7 sources) Impingement syndrome of shoulder region; Translations: [Impingement syndrome of unspecified shoulder] Onset: 01-25-2003 06-21-2023 Episodic Other connective tissue disease (7 sources) Lateral epicondylitis; Translations: [Lateral epicondylitis, unspecified elbow] Onset: 06-24-2023 06-24-2023 Episodic Other connective tissue disease (7 sources) Other symptoms and signs involving the musculoskeletal system; Translations: [Other musculoskeletal symptoms referable to limbs] Onset: 12-29-2023 12-29-2023 Episodic Other lower respiratory disease (7 sources) Dyspnea; Translations: [Dyspnea, unspecified] Onset: 11-30-2011 06-21-2023 Episodic Other nervous system disorders (9 sources) Numbness of upper limb; Translations: [Anesthesia of skin] Onset: 12-29-2023 08-25-2023 Episodic Comment on above: Problem List clean-u p per request of Phys. EHR Cmte Other non-traumatic joint disorders (7 sources) Ankle edema; Translations: [Effusion, unspecified ankle] Onset: 05-15-2014 06-21-2023 Episodic Other non-traumatic joint disorders (7 sources) Joint pain; Translations: [Pain in unspecified joint] Onset: 09-03-2009 06-21-2023 Episodic Other screening for suspected conditions (not mental disorders or infectious disease) (20 sources) Encounter for screening for malignant neoplasm of prostate; Translations: [Elevated prostate specific antigen [PSA]] Onset: 03-13-2022 Episodic Other skin disorders (7 sources) Excessive sweating; Translations: [Generalized hyperhidrosis] Onset: 12-18-2015 06-21-2023 Episodic Other skin disorders (7 sources) Senile hyperkeratosis; Translations: [Actinic keratosis] Onset: 03-28-2015 06-21-2023 Episodic Other skin disorders (7 sources) Hyperhidrosis; Translations: [Generalized hyperhidrosis] Onset: 06-24-2023 06-24-2023 Episodic Other upper respiratory infections (7 sources) Upper respiratory infection; Translations: [Acute upper respiratory infection, unspecified] Onset: 12-05-2010 06-21-2023 Episodic Spondylosis; intervertebral disc disorders; other back problems (20 sources) Cervical disc prolapse with radiculopathy; Translations: [Cervical disc disorder with radiculopathy, unspecified cervical region] Onset: 10-11-2018 08-25-2023 Episodic Comment on above: Problem List clean-u p per request of Phys. EHR Cmte Urinary tract infections (7 sources) Urinary tract infectious disease; Translations: [Urinary tract infection, site not specified] Onset: 06-28-2014 06-21-2023 Episodic Results Test Name Value Interpretation Reference Range Facility BASIC METABOLIC PANELon 09-14 Anion gap [Moles/Vol] 8 mmol/L Normal 7-20 [facility] Comment on above: Performed By: #### L [id number] #### [facility] ([facility]) [address] [place] [address] Calcium [Mass/Vol] 9.7 mg/dL Normal 8.6-10.3 [facility] Comment on above: Performed By: #### L [id number] #### [facility] ([facility]) [address] [place] [address] Chloride [Moles/Vol] 97 mmol/L Low 98-107 [facility] Comment on above: Performed By: #### L [id number] #### [facility] ([facility]) [address] [place] [address] CO2 [Moles/Vol] 35 mmol/L High 21-31 [facility] Comment on above: Performed By: #### L [id number] #### [facility] ([facility]) [address] [place] [address] Creatinine [Mass/Vol] 1.02 mg/dL Normal 0.70-1.30 [facility] Comment on above: Performed By: #### L [id number] #### [facility] ([facility]) [address] [place] [address] GLOMERULAR FILTRATION RATE ML/MIN/1.73 SQ M.PREDICTED 86.8 mL/min/1.73m*2 Normal >60.0 [facility] Comment on above: Result Comment: [facility]???s estimated glomerular filtration rate (eGFR) will [...] group of individuals. Performed By: #### L [id number] #### [facility] ([facility]) [address] [place] [address] Glucose [Mass/Vol] 80 mg/dL Normal 70-100 [facility] Comment on above: Performed By: #### L [id number] #### [facility] ([facility]) [address] [place] [address] Potassium [Moles/Vol] 4.2 mmol/L Normal 3.5-5.1 [facility] Comment on above: Performed By: #### L [id number] #### [facility] ([facility]) [address] [place] [address] Sodium [Moles/Vol] 136 mmol/L Normal 136-145 [facility] Comment on above: Performed By: #### L [id number] #### [facility] ([facility]) [address] [place] [address] Urea nitrogen [Mass/Vol] 8 mg/dL Normal 7-25 [facility] Comment on above: Performed By: #### L [id number] #### [facility] ([facility]) [address] [place] [address] UREA NITROGEN/CREATININE (MASS RATIO) IN SER/PLAS 7.8 Normal [facility] Comment on above: Performed By: #### L [id number] #### [facility] ([facility]) [address] [place] [address] CBC WITH AUTO DIFFERENTIALon 10-11-2024 Basophils (Bld) [#/Vol] 0.06 10*3/uL Normal 0.00-0.20 [facility] Comment on above: Performed By: #### L [id number] ####[facility] ([facility])[address] [facility] [place] [address] Basophils/100 WBC (Bld) 0.9 % Normal 0.0-1.0 [facility] Comment on above: Performed By: #### L [id number] ####[facility] ([facility])[address] [place] [address] Eosinophils (Bld) [#/Vol] 0.21 10*3/uL Normal 0.00-0.50 [facility] Comment on above: Performed By: #### L [id number] ####[facility] ([facility])[address] [place] [address] Eosinophils/100 WBC (Bld) 3.0 % Normal 0.0-6.0 [facility] Comment on above: Performed By: #### L [id number] ####[facility] ([facility])[address] [place] [address] Erythrocyte distribution width (RBC) [Ratio] 16.7 % High 11.5-15.0 [facility] Comment on above: Performed By: #### L [id number] ####[facility] ([facility])[address] [place] [address] ERYTHROCYTE MEAN CORPUSCULAR HEMOGLOBIN CONCENTRATION (G/DL) BY AUTOMATED 29.9 g/dL Low 32.0-35.0 [facility] [facility] Comment on above: Performed By: #### L [id number] ####[facility] ([facility] [place] [address] Hematocrit (Bld) [Volume fraction] 44.5 % Normal 39.0-55.0 [facility] Comment on above: Performed By: #### L [id number] ####[facility] ([facility])[address] [place] [address] Hemoglobin (Bld) [Mass/Vol] 13.3 g/dL Normal 13.0-17.0 [facility] Comment on above: Performed By: #### L [id number] ####[facility] ([facility])[address] [place] [address] Immature granulocytes (Bld) [#/Vol] 0.11 10*3/uL Normal 0.00-0.20 [facility] Comment on above: Performed By: #### L [id number] ####[facility] ([facility])[address] [place] [address] Immature granulocytes/100 WBC (Bld) 1.6 % High 0.0-1.0 [facility] Comment on above: Performed By: #### L [id number] ####[facility] ([facility])[address] [place] [address] Lymphocytes (Bld) [#/Vol] 0.91 10*3/uL Low 1.20-4.00 [facility] Comment on above: Performed By: #### L [id number] ####[facility] ([facility] [place] [address] Lymphocytes/100 WBC (Bld) 12.9 % Low 20.0-45.0 [facility] Comment on above: Performed By: #### L [id number] ####[facility] ([facility] [place] [address] MCH (RBC) [Entitic mass] 26.9 pg Low 27.0-33.0 [facility] Comment on above: Performed By: #### L [id number] ####[facility] ([facility] [place] [address] MCV (RBC) [Entitic vol] 89.9 fL Normal 82.0-98.0 [facility] Comment on above: Performed By: #### L [id number] ####[facility] ([facility])[address] [place] [address] Monocytes (Bld) [#/Vol] 0.65 10*3/uL Normal 0.10-1.00 [facility] Comment on above: Performed By: #### L [id number] ####[facility] ([facility])[address] [place] [address] Monocytes/100 WBC (Bld) 9.2 % Normal 5.0-12.0 [facility] Comment on above: Performed By: #### L [id number] ####[facility] ([facility])[address] [place] [address] Neutrophils (Bld) [#/Vol] 5.11 10*3/uL Normal 1.60-7.60 [facility] Comment on above: Performed By: #### L [id number] ####[facility] ([facility] [place] [address] Neutrophils/100 WBC (Bld) 72.4 % High 40.0-72.0 [facility] Comment on above: Performed By: #### L [id number] ####[facility] ([facility] [place] [address] NRBC (PER 100 WBCS) BY AUTOMATED COUNT 0.0 % Normal 0 [facility] Comment on above: Performed By: #### L [id number] ####[facility] ([facility])[address] [place] [address] PLATELETS (10*3/UL) IN BLOOD AUTOMATED COUNT 218 10*3/uL Normal 150-400 [facility] Comment on above: Performed By: #### L [id number] ####[facility] ([facility])[address] [place] [address] RBC (Bld) [#/Vol] 4.95 10*6/uL Normal 4.20-5.70 [facility] Comment on above: Performed By: #### L [id number] ####[facility] ([facility] [place] [address] WBC (Bld) [#/Vol] 7.05 10*3/uL Normal 4.00-10.60 [facility] Comment on above: Performed By: #### L [id number] ####[facility] ([facility])[address] [place] [address] BASIC METABOLIC PANELon - Anion gap [Moles/Vol] 9 mmol/L Normal 7-20 [facility] Comment on above: Performed By: #### L [id number] #### [facility] ([facility]) [address] [place] [address] Calcium [Mass/Vol] 9.5 mg/dL Normal 8.6-10.3 [facility] Comment on above: Performed By: #### L [id number] #### [facility] ([facility]) [address] [place] [address] Chloride [Moles/Vol] 96 mmol/L Low 98-107 [facility] Comment on above: Performed By: #### L [id number] #### [facility] ([facility]) [address] [place] [address] CO2 [Moles/Vol] 34 mmol/L High 21-31 [facility] Comment on above: Performed By: #### L [id number] #### [facility] ([facility]) [address] [place] [address] Creatinine [Mass/Vol] 0.93 mg/dL Normal 0.70-1.30 [facility] Comment on above: Performed By: #### L [id number] #### [facility] ([facility]) [address] [place] [address] GLOMERULAR FILTRATION RATE ML/MIN/1.73 SQ M.PREDICTED 97.0 mL/min/1.73m*2 Normal >60.0 [facility] Comment on above: Result Comment: [facility]???s estimated glomerular filtration rate (eGFR) will [...] group of individuals. Performed By: #### L [id number] #### [facility] ([facility]) [address] [place] [address] Glucose [Mass/Vol] 85 mg/dL Normal 70-100 [facility] Comment on above: Performed By: #### L [id number] #### [facility] ([facility] [address] [place] [address] Potassium [Moles/Vol] 4.0 mmol/L Normal 3.5-5.1 [facility] Comment on above: Performed By: #### L [id number] #### [facility] ([facility] [address] [place] [address] Sodium [Moles/Vol] 135 mmol/L Low 136-145 [facility] Comment on above: Performed By: #### L [id number] #### [facility] ([facility]) [address] [place] [address] Urea nitrogen [Mass/Vol] 8 mg/dL Normal 7-25 [facility] Comment on above: Performed By: #### L [id number] #### [facility] ([facility]) [address] [place] [address] UREA NITROGEN/CREATININE (MASS RATIO) IN SER/PLAS 8.6 Normal [facility] Comment on above: Performed By: #### L [id number] #### [facility] ([facility]) [address] [place] [address] C-REACTIVE PROTEINon 025 C REACTIVE PROTEIN (MG/L) IN SER/PLAS 11.5 mg/L High <=5.0 [facility] Comment on above: Result Comment: Test ing performed using a new methodology, turbidimetry. Normal ranges have been updated. Old normal range was <8 mg/L. Performed By: #### L [id number] #### [facility] ([facility]) [address] [place] [address] CBC WITH AUTO DIFFERENTIALon 10-10-2024 Basophils (Bld) [#/Vol] 0.08 10*3/uL Normal 0.00-0.20 [facility] Comment on above: Performed By: #### L [id number] ####[facility] ([facility])[address] [place] [address] Basophils/100 WBC (Bld) 1.1 % High 0.0-1.0 [facility] Comment on above: Performed By: #### L [id number] ####[facility] ([facility] [place] [address] Eosinophils (Bld) [#/Vol] 0.19 10*3/uL Normal 0.00-0.50 [facility] Comment on above: Performed By: #### L [id number] ####[facility] ([facility])[address] [place] [address] Eosinophils/100 WBC (Bld) 2.7 % Normal 0.0-6.0 [facility] Comment on above: Performed By: #### L [id number] ####[facility] ([facility])[address] [place] [address] Erythrocyte distribution width (RBC) [Ratio] 16.6 % High 11.5-15.0 [facility] Comment on above: Performed By: #### L [id number] ####[facility] ([facility])[address] [place] [address] ERYTHROCYTE MEAN CORPUSCULAR HEMOGLOBIN CONCENTRATION (G/DL) BY AUTOMATED 30.1 g/dL Low 32.0-35.0 [facility] Comment on above: Performed By: #### L [id number] ####[facility] ([facility])[address] [place] [address] Hematocrit (Bld) [Volume fraction] 44.5 % Normal 39.0-55.0 [facility] Comment on above: Performed By: #### L [id number] ####[facility] ([facility])[address] [place] [address] Hemoglobin (Bld) [Mass/Vol] 13.4 g/dL Normal 13.0-17.0 [facility] Comment on above: Performed By: #### L [id number] ####[facility] ([facility])[address] [place] [address] Immature granulocytes (Bld) [#/Vol] 0.10 10*3/uL Normal 0.00-0.20 [facility] Comment on above: Performed By: #### L [id number] ####[facility] ([facility])[address] [place] [address] Immature granulocytes/100 WBC (Bld) 1.4 % High 0.0-1.0 [facility] Comment on above: Performed By: #### L [id number] ####[facility] ([facility])[address] [place] [address] Lymphocytes (Bld) [#/Vol] 0.90 10*3/uL Low 1.20-4.00 [facility] Comment on above: Performed By: #### L [id number] ####[facility] ([facility] [place] [address] Lymphocytes/100 WBC (Bld) 12.8 % Low 20.0-45.0 [facility] Comment on above: Performed By: #### L [id number] ####[facility] ([facility] [place] [address] MCH (RBC) [Entitic mass] 26.9 pg Low 27.0-33.0 [facility] Comment on above: Performed By: #### L [id number] ####[facility] ([facility] [place] [address] MCV (RBC) [Entitic vol] 89.4 fL Normal 82.0-98.0 [facility] Comment on above: Performed By: #### L [id number] ####[facility] ([facility])[address] [place] [address] Monocytes (Bld) [#/Vol] 0.60 10*3/uL Normal 0.10-1.00 [facility] Comment on above: Performed By: #### L [id number] ####[facility] ([facility] [place] [address] Monocytes/100 WBC (Bld) 8.5 % Normal 5.0-12.0 [facility] Comment on above: Performed By: #### L [id number] ####[facility] ([facility])[address] [place] [address] Neutrophils (Bld) [#/Vol] 5.17 10*3/uL Normal 1.60-7.60 [facility] Comment on above: Performed By: #### L [id number] ####[facility] ([facility])[address] [place] [address] Neutrophils/100 WBC (Bld) 73.5 % High 40.0-72.0 [facility] Comment on above: Performed By: #### L [id number] ####[facility] ([facility])[address] [place] [address] NRBC (PER 100 WBCS) BY AUTOMATED COUNT 0.0 % Normal 0 [facility] Comment on above: Performed By: #### L [id number] ####[facility] ([facility])[address] [place] [address] PLATELETS (10*3/UL) IN BLOOD AUTOMATED COUNT 243 10*3/uL Normal 150-400 [facility] Comment on above: Performed By: #### L [id number] ####[facility] ([facility])[address] [place] [address] RBC (Bld) [#/Vol] 4.98 10*6/uL Normal 4.20-5.70 [facility] Comment on above: Performed By: #### L [id number] ####[facility] ([facility])[address] [place] [address] WBC (Bld) [#/Vol] 7.04 10*3/uL Normal 4.00-10.60 [facility] Comment on above: Performed By: #### L [id number] ####[facility] ([facility])[address] [place] [address] SEDIMENTATION RATEon 025 SEDIMENTATION RATE, ERYTHROCYTE 54 mm/hr High <20 [facility] Comment on above: Performed By: #### L [id number] #### [facility] ([facility] [address] [place] [address] VANCOMYCIN, PEAKon 5 VANCOMYCIN (UG/ML) IN SER/PLAS - PEAK 23.0 ug/mL Normal 20.0-50.0 [facility] Comment on above: Performed By: #### L [id number] #### [facility] ([facility]) [address] [place] [address] VANCOMYCIN, TROUGHon 025 VANCOMYCIN (UG/ML) IN SER/PLAS - TROUGH 19.2 ug/mL Normal 5.0-20.0 [facility] Comment on above: Performed By: #### L [id number] #### [facility] [address] [place] [address] 36on 10-09-2024 36 Spoke with facility and patient was admitted back here at [place] yesterday. They will call back if they need any orders. Normal [facility] BASIC METABOLIC PANELon 09-14 Anion gap [Moles/Vol] 9 mmol/L Normal 7-20 [facility] Comment on above: Performed By: #### L [id number] ####[facility] ([facility] [place] [address] Calcium [Mass/Vol] 9.4 mg/dL Normal 8.6-10.3 [facility] Comment on above: Performed By: #### L [id number] ####[facility] ([facility])[address] [place] [address] Chloride [Moles/Vol] 96 mmol/L Low 98-107 [facility] Comment on above: Performed By: #### L [id number] ####[facility] ([facility])[address] [place] [address] CO2 [Moles/Vol] 36 mmol/L High 21-31 [facility] Comment on above: Performed By: #### L [id number] ####[facility] ([facility])[address] [place] [address] Creatinine [Mass/Vol] 0.98 mg/dL Normal 0.70-1.30 [facility] Comment on above: Performed By: #### L [id number] ####[facility] ([facility])[address] [place] [address] GLOMERULAR FILTRATION RATE ML/MIN/1.73 SQ M.PREDICTED 91.1 mL/min/1.73m*2 Normal >60.0 [facility] Comment on above: Result Comment: [facility]???s estimated glomerular filtration rate (eGFR) will [...] of individuals. Performed By: #### L [id number] ####[facility] ([facility])[address] [place] [address] Glucose [Mass/Vol] 90 mg/dL Normal 70-100 [facility] Comment on above: Performed By: #### L [id number] ####[facility] ([facility])[address] [place] [address] Potassium [Moles/Vol] 4.0 mmol/L Normal 3.5-5.1 [facility] Comment on above: Performed By: #### L [id number] ####[facility] ([facility])[address] [place] [address] Sodium [Moles/Vol] 137 mmol/L Normal 136-145 [facility] Comment on above: Performed By: #### L [id number] ####[facility] ([facility])[address] [facility] [address] Urea nitrogen [Mass/Vol] 7 mg/dL Normal 7-25 [facility] Comment on above: Performed By: #### L [id number] ####[facility] ([facility])[address] [facility] [address] UREA NITROGEN/CREATININE (MASS RATIO) IN SER/PLAS 7.1 Normal [facility] Comment on above: Performed By: #### L [id number] ####[facility] ([facility])[address] [place] [address] CBCon 10-09-2024 Erythrocyte distribution width (RBC) [Ratio] 16.2 % High 11.5-15.0 [facility] Comment on above: Performed By: #### L [id number] #### [facility] ([facility]) [address] [place] [address] ERYTHROCYTE MEAN CORPUSCULAR HEMOGLOBIN CONCENTRATION (G/DL) BY AUTOMATED 30.5 g/dL Low 32.0-35.0 [facility] Comment on above: Performed By: #### L [id number] #### [facility] ([facility]) [address] [place] [address] Hematocrit (Bld) [Volume fraction] 42.0 % Normal 39.0-55.0 [facility] Comment on above: Performed By: #### L [id number] #### [facility] ([facility]) [address] [place] [address] Hemoglobin (Bld) [Mass/Vol] 12.8 g/dL Low 13.0-17.0 [facility] Comment on above: Performed By: #### L [id number] #### [facility] ([facility]) [address] [place] [address] MCH (RBC) [Entitic mass] 26.9 pg Low 27.0-33.0 [facility] Comment on above: Performed By: #### L [id number] #### [facility] ([facility]) [address] [place] [address] MCV (RBC) [Entitic vol] 88.2 fL Normal 82.0-98.0 [facility] Comment on above: Performed By: #### L [id number] #### [facility] ([facility]) [address] [place] [address] PLATELETS (10*3/UL) IN BLOOD AUTOMATED COUNT 240 10*3/uL Normal 150-400 [facility] Comment on above: Performed By: #### L [id number] #### [facility] ([facility]) [address] [place] [address] RBC (Bld) [#/Vol] 4.76 10*6/uL Normal 4.20-5.70 [facility] Comment on above: Performed By: #### L [id number] #### [facility] ([facility]) [address] [facility] [address] WBC (Bld) [#/Vol] 8.22 10*3/uL Normal 4.00-10.60 [facility] Comment on above: Performed By: #### L [id number] #### [facility] ([facility]) [address] [facility] [place] [address] MAGNESIUMon 10-09-2024 Magnesium [Mass/Vol] 2.0 mg/dL Normal 1.9-2.7 [facility] Comment on above: Performed By: #### L [id number] #### [facility] ([facility]) [address] [place] [address] BLOOD CULTUREon 10-08-2024 Bacteria identified Cx Nom (Bld) No growth at 5 days Normal [facility] Comment on above: Performed By: #### L [id number] ####[facility] ([facility])[address] [place] [address] Order Comment: From a different site than #1. Performed By: #### L [id number] #### [facility] ([facility]) [address] [facility] [place] [address] C-REACTIVE PROTEINon 025 C REACTIVE PROTEIN (MG/L) IN SER/PLAS 26.6 mg/L High <=5.0 [facility] Comment on above: Result Comment: Test ing performed using a new methodology, turbidimetry. Normal ranges have been updated. Old normal range was <8 mg/L. Performed By: #### L [id number] ####[facility] ([facility])[address] [place] [address] CBC WITH AUTO DIFFERENTIALon 10-08-2024 Basophils (Bld) [#/Vol] 0.06 10*3/uL Normal 0.00-0.20 [facility] Comment on above: Performed By: #### L [id number] #### [facility] ([facility]) [address] [place] [address] Basophils/100 WBC (Bld) 0.8 % Normal 0.0-1.0 [facility] Comment on above: Performed By: #### L [id number] #### [facility] ([facility]) [address] [place] [address] Eosinophils (Bld) [#/Vol] 0.17 10*3/uL Normal 0.00-0.50 [facility] Comment on above: Performed By: #### L [id number] #### [facility] ([facility]) [address] [place] [address] Eosinophils/100 WBC (Bld) 2.3 % Normal 0.0-6.0 [facility] Comment on above: Performed By: #### L [id number] #### [facility] ([facility]) [address] [place] [address] Erythrocyte distribution width (RBC) [Ratio] 16.0 % High 11.5-15.0 [facility] Comment on above: Performed By: #### L [id number] #### [facility] ([facility]) [address] [place] [address] ERYTHROCYTE MEAN CORPUSCULAR HEMOGLOBIN CONCENTRATION (G/DL) BY AUTOMATED 30.3 g/dL Low 32.0-35.0 [facility] Comment on above: Performed By: #### L [id number] #### [facility] ([facility]) [address] [place] [address] Hematocrit (Bld) [Volume fraction] 40.9 % Normal 39.0-55.0 [facility] Comment on above: Performed By: #### L [id number] #### [facility] ([facility]) [address] [place] [address] Hemoglobin (Bld) [Mass/Vol] 12.4 g/dL Low 13.0-17.0 [facility] Comment on above: Performed By: #### L [id number] #### [facility] ([facility]) [address] [place] [address] Immature granulocytes (Bld) [#/Vol] 0.10 10*3/uL Normal 0.00-0.20 [facility] Comment on above: Performed By: #### L [id number] #### [facility] ([facility]) [address] [place] [address] Immature granulocytes/100 WBC (Bld) 1.4 % High 0.0-1.0 [facility] Comment on above: Performed By: #### L [id number] #### [facility] ([facility]) [address] [place] [address] Lymphocytes (Bld) [#/Vol] 0.73 10*3/uL Low 1.20-4.00 [facility] Comment on above: Performed By: #### L [id number] #### [facility] ([facility]) [address] [place] [address] Lymphocytes/100 WBC (Bld) 10.0 % Low 20.0-45.0 [facility] Comment on above: Performed By: #### L [id number] #### [facility] ([facility]) [address] [place] [address] MCH (RBC) [Entitic mass] 26.7 pg Low 27.0-33.0 [facility] Comment on above: Performed By: #### L [id number] #### [facility] ([facility]) [address] [place] [address] MCV (RBC) [Entitic vol] 88.0 fL Normal 82.0-98.0 [facility] Comment on above: Performed By: #### L [id number] #### [facility] [address] [place] [address] Monocytes (Bld) [#/Vol] 0.52 10*3/uL Normal 0.10-1.00 [facility] Comment on above: Performed By: #### L [id number] #### [facility] ([facility]) [address] [place] [address] Monocytes/100 WBC (Bld) 7.1 % Normal 5.0-12.0 [facility] Comment on above: Performed By: #### L [id number] #### [facility] ([facility]) [address] [place] [address] Neutrophils (Bld) [#/Vol] 5.73 10*3/uL Normal 1.60-7.60 [facility] Comment on above: Performed By: #### L [id number] #### [facility] ([facility]) [address] [address] Neutrophils/100 WBC (Bld) 78.4 % High 40.0-72.0 [facility] Comment on above: Performed By: #### L [id number] #### [facility] ([facility]) [address] [place] [address] NRBC (PER 100 WBCS) BY AUTOMATED COUNT 0.0 % Normal 0 [facility] Comment on above: Performed By: #### L [id number] #### [facility] ([facility]) [address] [place] [address] PLATELETS (10*3/UL) IN BLOOD AUTOMATED COUNT 231 10*3/uL Normal 150-400 [facility] Comment on above: Performed By: #### L [id number] #### [facility] ([facility]) [address] [place] [address] RBC (Bld) [#/Vol] 4.65 10*6/uL Normal 4.20-5.70 [facility] Comment on above: Performed By: #### L [id number] #### [facility] ([facility]) [address] [address] WBC (Bld) [#/Vol] 7.31 10*3/uL Normal 4.00-10.60 [facility] Comment on above: Performed By: #### L [id number] #### [facility] ([facility]) [address] [place] [address] COMPREHENSIVE METABOLIC PANE Clif 10-08-2024 Albumin [Mass/Vol] 3.7 g/dL Normal 3.5-5.7 [facility] Comment on above: Performed By: #### L [id number] #### [facility] ([facility] [address] [place] [address] ALP [Catalytic activity/Vol] 130 U/L High 34-104 [facility] Comment on above: Performed By: #### L [id number] #### [facility] ([facility]) [address] [place] [address] ALT [Catalytic activity/Vol] 14 U/L Normal 7-52 [facility] Comment on above: Performed By: #### L [id number] #### [facility] ([facility]) [address] [place] [address] Anion gap [Moles/Vol] 9 mmol/L Normal 7-20 [facility] Comment on above: Performed By: #### L [id number] #### [facility] ([facility]) [address] [place] [address] AST [Catalytic activity/Vol] 19 U/L Normal 13-39 [facility] Comment on above: Performed By: #### L [id number] #### [facility] ([facility]) [address] [place] [address] Bilirubin [Mass/Vol] 0.7 mg/dL Normal 0.3-1.0 [facility] Comment on above: Performed By: #### L [id number] #### [facility] ([facility]) [address] [place] [address] Calcium [Mass/Vol] 9.5 mg/dL Normal 8.6-10.3 [facility] Comment on above: Performed By: #### L [id number] #### [facility] ([facility]) [address] [place] [address] Chloride [Moles/Vol] 99 mmol/L Normal 98-107 [facility] Comment on above: Performed By: #### L [id number] #### [facility] ([facility]) [address] [place] [address] CO2 [Moles/Vol] 37 mmol/L High 21-31 [facility] Comment on above: Performed By: #### L [id number] #### [facility] ([facility]) [address] [place] [address] Creatinine [Mass/Vol] 0.96 mg/dL Normal 0.70-1.30 [facility] Comment on above: Performed By: #### L [id number] #### [facility] ([facility]) [address] [place] [address] GLOMERULAR FILTRATION RATE ML/MIN/1.73 SQ M.PREDICTED 93.3 mL/min/1.73m*2 Normal >60.0 [facility] Comment on above: Result Comment: [facility]???s estimated glomerular filtration rate (eGFR) will [...] group of individuals. Performed By: #### L [id number] #### [facility] ([facility]) [address] [place] [address] Glucose [Mass/Vol] 83 mg/dL Normal 70-100 [facility] Comment on above: Performed By: #### L [id number] #### [facility] ([facility]) [address] [place] [address] Potassium [Moles/Vol] 4.2 mmol/L Normal 3.5-5.1 [facility] Comment on above: Performed By: #### L [id number] #### [facility] ([facility]) [address] [place] [address] Protein [Mass/Vol] 7.1 g/dL Normal 6.0-8.3 [facility] Comment on above: Performed By: #### L [id number] #### [facility] ([facility]) [address] [place] [address] Sodium [Moles/Vol] 141 mmol/L Normal 136-145 [facility] Comment on above: Performed By: #### L [id number] #### [facility] ([facility]) [address] [place] [address] Urea nitrogen [Mass/Vol] 10 mg/dL Normal 7-25 [facility] Comment on above: Performed By: #### L [id number] #### [facility] ([facility]) [address] [place] [address] UREA NITROGEN/CREATININE (MASS RATIO) IN SER/PLAS 10.4 [facility] Comment on above: Performed By: #### L [id number] #### [facility] ([facility]) [address] [place] [address] CONSULTon 10-08-2024 CONSULT -- Attestation signed by Leonie Mai MD at 10/08/2024 12:10 PM Patient discussed with me and I agree with above. WBC normal. CRP pending. No change on x-rays. Will follow clinically. Orthopaedic Surgery CHIEF COMPLAINT: Cellulitis HPI: Matty Garces is a 54 y.o. male s/p right imn of r tibia on 09/24/24 with complaint of cellulitis of right lower. Orthopaedic surgery is consulted for possible infection to the right lower extremity. On evaluation patient states that he has fullness, 8/10 pain and weakness of right lower extremity. Denies any new numbness/tingling/weak ness. Denies any fevers/sweats/chills or other constitutional symptoms. Pt does have a history of orthopaedic surgery with indwelling hardware near the area of concern. Date/description of surgery: 09/24/24 R IMN of Tibia Currently taking any blood thinners: No History Past Medical History: Diagnosis Date Hypertension Past Surgical History: Procedure Laterality Date ABDOMINAL SURGERY FRACTURE SURGERY No Known Allergies Current Facility-Administered Medications: acetaminophen (Tylenol) tablet 650 mg, 650 mg, oral, q6h PRN, Tonya Lerner NP melatonin tablet 5 mg, 5 mg, oral, Nightly PRN, Tonya Lerner NP morphine injection 2 mg, 2 mg, intravenous, q4h PRN, Tonya Lerner NP naloxone (Narcan) injection 0.2 mg, 0.2 mg, intravenous, PRN OR naloxone (Narcan) injection 0.2 mg, 0.2 mg, intramuscular, PRN OR naloxone (Narcan) injection 0.2 mg, 0.2 mg, subcutaneous, PRN, Tonya Lerner NP ondansetron ODT (Zofran-ODT) disintegrating tablet 4 mg, 4 mg, oral, q8h PRN OR ondansetron HCl (PF) (Zofran) injection 4 mg, 4 mg, intravenous, q6h PRN, Tonya Lerner NP oxyCODONE (Roxicodone) immediate release tablet 5 mg, 5 mg, oral, q4h PRN, Tonya Lerner NP sennosides-docusate sodium (Mary Lou-Colace) 8.6-50 mg per tablet 1 tablet, 1 tablet, oral, Daily PRN, Tonya Lerner NP Current Outpatient Medications: acetaminophen (Tylenol) 500 mg tablet, Take 1 tablet (500 mg) by mouth every 6 (six) hours if needed for mild pain (1-3 pain score)., Disp: 30 tablet, Rfl: 0 amantadine (Symmetrel) 100 mg capsule, Take 100 mg by mouth two times daily., Disp: , Rfl: [START ON 10/27/2024] aspirin 81 mg EC tablet, Take 1 tablet (81 mg) by mouth in the morning. Do not start before October 27, 2024., Disp: , Rfl: aspirin 81 mg EC tablet, Take 1 tablet (81 mg) by mouth two times daily for 28 days., Disp: 56 tablet, Rfl: 0 calcium 500 mg calcium (1,250 mg) tablet, Take 1 tablet (500 mg) by mouth with breakfast, with lunch, and with evening meal., Disp: 90 tablet, Rfl: 0 carvedilol (Coreg) 25 mg tablet, Take 25 mg by mouth with breakfast and with evening meal., Disp: , Rfl: cholecalciferol (Vitamin D-3) 50 MCG (2000 UT) tablet, Take 1 tablet (50 mcg) by mouth in the morning for 30 doses., Disp: 30 tablet, Rfl: 0 citalopram (CeleXA) 20 mg tablet, Take 20 mg by mouth in the morning., Disp: , Rfl: clonazePAM (KlonoPIN) 0.5 mg tablet, Take 0.5 mg by mouth at bedtime., Disp: , Rfl: doxazosin (Cardura) 8 mg tablet, Take 8 mg by mouth at bedtime., Disp: , Rfl: doxepin (SINEquan) 10 mg capsule, Take 10 mg by mouth if needed at bedtime for sleep., Disp: , Rfl: furosemide (Lasix) 20 mg tablet, Take 20 mg by mouth in the morning., Disp: , Rfl: gabapentin (Neurontin) 600 mg tablet, Take 600 mg by mouth three times daily., Disp: , Rfl: glycopyrrolate (Robinul) 1 mg tablet, Take 1 mg by mouth two times daily., Disp: , Rfl: hydrOXYzine pamoate (Vistaril) 25 mg capsule, Take 25 mg by mouth if needed at bedtime for anxiety., Disp: , Rfl: meclizine (Antivert) 25 mg tablet, Take 25 mg by mouth if needed in the morning, at noon, and at bedtime for dizziness., Disp: , Rfl: methocarbamol 1,000 mg tablet, Take 1,000 mg by mouth if needed in the morning, at noon, and at bedtime for muscle spasms., Disp: 10 tablet, Rfl: 0 modafinil (Provigil) 200 mg tablet, Take 200 mg by mouth twice a day., Disp: , Rfl: multivitamin tablet, Take 1 tablet by mouth in the morning., Disp: , Rfl: ondansetron (Zofran) 4 mg tablet, Take 4 mg by mouth every 8 (eight) hours if needed for nausea or vomiting., Disp: , Rfl: oxyCODONE (Roxicodone) 5 mg immediate release tablet, Take 1 tablet (5 mg) by mouth every 6 (six) hours if needed for severe pain (8-10 pain score)., Disp: 10 tablet, Rfl: 0 pantoprazole (ProtoNix) 40 mg EC tablet, Take 40 mg by mouth before breakfast. Do not crush, chew, or split., Disp: , Rfl: potassium chloride ER (Micro-K) 10 mEq ER capsule, Take 10 mEq by mouth two times daily. Do not crush or chew., Disp: , Rfl: sennosides-docusate sodium (Mary Lou-Colace) 8.6-50 mg tablet, Take 1 tablet by mouth two times daily., Disp: 60 tablet, Rfl: 0 sildenafil (Viagra) 25 mg ta (more content not included)... Normal [facility] EDNURSon 10-08-2024 EDNURS Arrival: transfer fr [facility] ED Complaint: cellulitis to right leg, hx surgery on 09/24 Notes: patient arrived on this day via [facility] from [place] [facility] for pain to the right leg. Previous surgery at [facility] on 09/24 for right leg tib/fib fracture. Per [place] staff, patient arrived with increased pain, redness and swelling to right lower extremity. Ultrasound was negative for DVT. [place] ED treated for cellulitis, administered dose of zosyn at 0330, vancomycin at 2030 and 5mg oxycontin at 1930. Patient endorsed non-compliance, did not have post surgery follow up appointment and has been putting weight on leg. History of hypertension, patient O2 desat to 88% when sleeping. Per [place], patient non-compliant with bipap. Upon arrival, patient endorsed pain 8/10 and nausea. Patient denied chest pain, fever, chills and shortness of breath. Normal [facility] EDPROVon 10-08-2024 EDPROV [facility] [id number] EMERGENCY DEPARTMENT ENCOUNTER CHIEF COMPLAINT Chief Complaint Patient presents with Cellulitis HISTORY OF PRESENT ILLNESS Matty Garces is a 54 y.o. male who presents with a Chief Complaint Patient presents with Cellulitis REVIEW OF SYSTEMS Review of Systems Musculoskeletal: Positive for arthralgias. Skin: Positive for rash. All other systems reviewed and are negative. The patient is a 54-year-old male who was transferred from [facility] for cellulitis involving recent right lower extremity surgery. Patient had surgical pair of a tibia fracture on September 24. The patient states that he went to [place] emergency department today due to increased swelling. Patient was given Zosyn and vancomycin at [facility]. Patient states that he is having pain in his right lower extremity. PAST MEDICAL HISTORY has a past medical history of Hypertension. SURGICAL HISTORY has a past surgical history that includes Abdominal surgery and Fracture surgery. CURRENT MEDICATIONS Previous Medications ACETAMINOPHEN (TYLENOL) 500 MG TABLET Take 1 tablet (500 mg) by mouth every 6 (six) hours if needed for mild pain (1-3 pain score). AMANTADINE (SYMMETREL) 100 MG CAPSULE Take 100 mg by mouth two times daily. ASPIRIN 81 MG EC TABLET Take 1 tablet (81 mg) by mouth in the morning. Do not start before October 27, 2024. ASPIRIN 81 MG EC TABLET Take 1 tablet (81 mg) by mouth two times daily for 28 days. CALCIUM 500 MG CALCIUM (1,250 MG) TABLET Take 1 tablet (500 mg) by mouth with breakfast, with lunch, and with evening meal. CARVEDILOL (COREG) 25 MG TABLET Take 25 mg by mouth with breakfast and with evening meal. CHOLECALCIFEROL (VITAMIN D-3) 50 MCG (1999 UT) TABLET Take 1 tablet (50 mcg) by mouth in the morning for 30 doses. CITALOPRAM (CELEXA) 20 MG TABLET Take 20 mg by mouth in the morning. CLONAZEPAM (KLONOPIN) 0.5 MG TABLET Take 0.5 mg by mouth at bedtime. DOXAZOSIN (CARDURA) 8 MG TABLET Take 8 mg by mouth at bedtime. DOXEPIN (SINEQUAN) 10 MG CAPSULE Take 10 mg by mouth if needed at bedtime for sleep. FUROSEMIDE (LASIX) 20 MG TABLET Take 20 mg by mouth in the morning. GABAPENTIN (NEURONTIN) 600 MG TABLET Take 600 mg by mouth three times daily. GLYCOPYRROLATE (ROBINUL) 1 MG TABLET Take 1 mg by mouth two times daily. HYDROXYZINE PAMOATE (VISTARIL) 25 MG CAPSULE Take 25 mg by mouth if needed at bedtime for anxiety. MECLIZINE (ANTIVERT) 25 MG TABLET Take 25 mg by mouth if needed in the morning, at noon, and at bedtime for dizziness. METHOCARBAMOL 1,000 MG TABLET Take 1,000 mg by mouth if needed in the morning, at noon, and at bedtime for muscle spasms. MODAFINIL (PROVIGIL) 200 MG TABLET Take 200 mg by mouth twice a day. MULTIVITAMIN TABLET Take 1 tablet by mouth in the morning. ONDANSETRON (ZOFRAN) 4 MG TABLET Take 4 mg by mouth every 8 (eight) hours if needed for nausea or vomiting. OXYCODONE (ROXICODONE) 5 MG IMMEDIATE RELEASE TABLET Take 1 tablet (5 mg) by mouth every 6 (six) hours if needed for severe pain (8-10 pain score). PANTOPRAZOLE (PROTONIX) 40 MG EC TABLET Take 40 mg by mouth before breakfast. Do not crush, chew, or split. POTASSIUM CHLORIDE ER (MICRO-K) 10 MEQ ER CAPSULE Take 10 mEq by mouth two times daily. Do not crush or chew. SENNOSIDES-DOCUSATE SODIUM (MARY LOU-COLACE) 8.6-50 MG TABLET Take 1 tablet by mouth two times daily. SILDENAFIL (VIAGRA) 25 MG TABLET Take 25 mg by mouth if needed each day for erectile dysfunction. SIMVASTATIN (ZOCOR) 20 MG TABLET Take 20 mg by mouth at bedtime. SUMATRIPTAN (IMITREX) 100 MG TABLET Take 100 mg by mouth 1 (one) time if needed for migraine. TIZANIDINE (ZANAFLEX) 4 MG CAPSULE Take 4 mg by mouth in the evening. ALLERGIES has No Known Allergies. FAMILY HISTORY has no family status information on file. family history is not on file. SOCIAL HISTORY reports that he has never smoked. He has never used smokeless tobacco. He reports current alcohol use. He reports that he does not currently use drugs after having used the following drugs: Marijuana. PHYSICIAL EXAM INITIAL VITALS: height is 1.88 m (6' 2 ) and weight is 134 kg (295 lb). His oral temperature is 36.4 ???C (97.6 ???F). His blood pressure is 138/99 (abnormal) and his pulse is 87. His respiration is 10 and oxygen saturation is 100%. Physical Exam Vitals and nursing note reviewed. Constitutional: Appearance: He is well-developed. HENT: Head: Normocephalic and atraumatic. Nose: Nose normal. Mouth/Throat: Mouth: Mucous membranes are moist. Pharynx: Oropharynx is clear. Eyes: Conjunctiva/sclera: Conjunctivae normal. Cardiovascular: Rate and Rhythm: Normal rate and regular rhythm. Heart sounds: Normal heart sounds. No murmur heard. Pulmonary: Effort: Pulmonary effort is normal. No respiratory distress. B (more content not included)... Normal [facility] MAGNESIUMon 10-08-2024 Magnesium [Mass/Vol] 1.8 mg/dL Low 1.9-2.7 [facility] Comment on above: Performed By: #### L [id number] #### [facility] ([facility]) [address] [place] [address] SEDIMENTATION RATEon 025 SEDIMENTATION RATE, ERYTHROCYTE 56 mm/hr High <20 [facility] Comment on above: Performed By: #### L [id number] #### [facility] ([facility]) [address] [place] [address] VITAMIN D 25 HYDROXYon 10-08 CALCIDIOL (25 [place] VITAMIN D3) (NG/ML) IN SER/PLAS 37.0 ng/mL Normal 30.0-80.0 [facility] Comment on above: Result Comment: >80. 0 Toxicity possible Performed By: #### L [id number] ####[facility] ([facility])[address] [place] [address] 36on 10-04-2024 36 [facility] call ed and is seeing the patient for wound care, PT, and OT. Seeing patient a couple times a week could specify a number of times. States is also doing dressing changes. [phone] [facility] Telephoneon 10-04-2024 Telephone [id number] Francisco Javier Garces 1970 M Date Provider Department Center 10/04/2024 [id number] MCCORMACK MP ORTHO MPORTHO No family history on file Reason for Visit and Comments: Information [Other] [facility] 36on 09-29-2024 36 Patient in home PT called and wanted to confirm if Dr. Hahn does the in home therapy approvals/orders or if he had to follow up with his PCP, contract writer informed her he does. Patient is scheduled for 10/05/24. [facility] BASIC METABOLIC PANELon 09-13 Anion gap [Moles/Vol] 7 mmol/L Normal 7-20 [facility] Comment on above: Performed By: #### L [id number] ####[facility] ([facility])[address] [place] [address] Calcium [Mass/Vol] 9.6 mg/dL Normal 8.6-10.3 [facility] Comment on above: Performed By: #### L [id number] ####[facility] ([facility])[address] [place] [address] Chloride [Moles/Vol] 98 mmol/L Normal 98-107 [facility] Comment on above: Performed By: #### L [id number] ####[facility] ([facility])[address] [place] [address] CO2 [Moles/Vol] 34 mmol/L High 21-31 [facility] Comment on above: Performed By: #### L [id number] ####[facility] ([facility])[address] [place] [address] Creatinine [Mass/Vol] 0.92 mg/dL Normal 0.70-1.30 [facility] Comment on above: Performed By: #### L [id number] ####[facility] ([facility] [place] [address] GLOMERULAR FILTRATION RATE ML/MIN/1.73 SQ M.PREDICTED 98.9 mL/min/1.73m*2 Normal >60.0 [facility] Comment on above: Result Comment: [facility]???s estimated glomerular filtration rate (eGFR) will [...] of individuals. Performed By: #### L [id number] ####[facility] ([facility] [place] [address] Glucose [Mass/Vol] 99 mg/dL Normal 70-100 [facility] Comment on above: Performed By: #### L [id number] ####[facility] ([facility])[address] [place] [address] Potassium [Moles/Vol] 4.3 mmol/L Normal 3.5-5.1 [facility] Comment on above: Performed By: #### L [id number] ####[facility] ([facility])[address] [place] [address] Sodium [Moles/Vol] 135 mmol/L Low 136-145 [facility] Comment on above: Performed By: #### L [id number] ####[facility] ([facility])[address] [place] [address] Urea nitrogen [Mass/Vol] 20 mg/dL Normal 7-25 [facility] Comment on above: Performed By: #### L [id number] ####[facility] ([facility])[address] [place] [address] UREA NITROGEN/CREATININE (MASS RATIO) IN SER/PLAS 21.7 Normal [facility] Comment on above: Performed By: #### L [id number] ####[facility] ([facility])[address] [place] [address] CBCon 09-28-2024 Erythrocyte distribution width (RBC) [Ratio] 15.3 % High 11.5-15.0 [facility] Comment on above: Performed By: #### L [id number] #### [facility] ([facility]) [address] [place] [address] ERYTHROCYTE MEAN CORPUSCULAR HEMOGLOBIN CONCENTRATION (G/DL) BY AUTOMATED 30.9 g/dL Low 32.0-35.0 [facility] Comment on above: Performed By: #### L [id number] #### [facility] ([facility]) [address] [place] [address] Hematocrit (Bld) [Volume fraction] 44.4 % Normal 39.0-55.0 [facility] Comment on above: Performed By: #### L [id number] #### [facility] ([facility]) [address] [place] [address] Hemoglobin (Bld) [Mass/Vol] 13.7 g/dL Normal 13.0-17.0 [facility] Comment on above: Performed By: #### L [id number] #### [facility] ([facility]) [address] [place] [address] MCH (RBC) [Entitic mass] 26.5 pg Low 27.0-33.0 [facility] Comment on above: Performed By: #### L [id number] #### [facility] ([facility]) [address] [place] [address] MCV (RBC) [Entitic vol] 85.9 fL Normal 82.0-98.0 [facility] Comment on above: Performed By: #### L [id number] #### [facility] ([facility]) [address] [place] [address] PLATELETS (10*3/UL) IN BLOOD AUTOMATED COUNT 208 10*3/uL Normal 150-400 [facility] Comment on above: Performed By: #### L [id number] #### [facility] ([facility]) [address] [place] [address] RBC (Bld) [#/Vol] 5.17 10*6/uL Normal 4.20-5.70 [facility] Comment on above: Performed By: #### L [id number] #### [facility] ([facility]) [address] [place] [address] WBC (Bld) [#/Vol] 10.65 10*3/uL High 4.00-10.60 [facility] Comment on above: Performed By: #### L [id number] #### [facility] ([facility]) [address] [place] [address] CONSULTon 09-28-2024 CONSULT Patient tried CPAP i [...] Referrals/Orders: Yes, Sleep Time Spent: 20 [facility] DSon 09-28-2024 DS Admission Admitted 09/23/2024 for Fall, syncope Comminuted right tib/fib fracture CHF HTN Hypomagnesemia Enlarged right hilar node Enlarged prostate Discharge Diagnosis Fall, syncope Comminuted right tib/fib fracture CHF HTN Hypomagnesemia Enlarged right hilar node Enlarged prostate Obstructive sleep apnea Morbid obesity Atrial flutter, new onset Discharge [place] [facility] [place]charge Medications Your medication list START [...] sodium 8.6-50 mg tablet Commonly known as: Mary Lou-Colace Take 1 tablet by mouth two times [...] Medications [facility] [address] [facility] [place] [address] [facility] [place] [address], [facility] [address] acetaminophen 500 mg tablet aspirin 81 mg [...] patient refused this stating he already has [facility] set up and wants to go home. Vascular surgery was consulted for a chronic left foot ulcer. Pulmonary navigator was consulted for PATEL and recommended OP sleep study. On day of discharge, Trauma team was informed at approximately 1730 per [facility] that patient went into a-flutter and sustained for approximately 2 hours fro (more content not included)... [facility] EDPROVon 09-28-2024 EDPROV This report has been cancelled. [facility] Letter (Out)on 09-28-2024 Letter (Out) [id number] Francisco Javier Garces Toni 1970 M Date Provider Department Center 09/28/2024 [id number], GENERIC PRO*INIT None No family history on file [facility] MAGNESIUMon 09-28-2024 Magnesium [Mass/Vol] 2.0 mg/dL Normal 1.9-2.7 [facility] Comment on above: Performed By: #### L [id number] #### [facility] ([facility]) [address] [place] [address] NURSNOTEon 09-28-2024 NURSNOTE PT signed AMA paperwork with trama team. Pt left with belongings and family. AMA paperwork in patient chart. [facility] PHOSPHORUSon 09-28-2024 Magnesium [Mass/Vol] 3.3 mg/dL Normal 2.5-5.0 [facility] Comment on above: Performed By: #### L [id number] ####[facility] ([facility])[address] [place] [address] 30on 09-27-2024 30 The patient is Moderately [...] these barriers include continue medications as ordered [facility] 30 Daily Case Managemen t Update Multidisciplinary rounds have been completed. Barriers to Discharge: Pending clinical course; POD3 IMN; 4L NC. Patient refusing CPaP at rest/sleep, Pulm brennen consulted and following. PT/OT recommending IPR, PMR consulted and recommend IPR. Patient and spouse would like to go home with [facility]. Referrals sent, pending accepting [facility] agency>>Radha Mendenhall [facility] accepting. DME recommended--ariadna mo, bedside commode--scripts written and face to face notes signed.>>need sent to [employer] for fulfillment. SW following. Diet: Dietary Orders (From admission, onward) Start Ordered 09/27/24 0844 Special Kitchen Request Once Comments: Please add regular coke to tray and bottled water Thank you 09/27/24 0844 09/27/24 0836 Special Kitchen Request Once Comments: Apple, [...] R tib fib facrture Level of Consultation Scooping Machine Tender assumes full responsibility 09/23/24 1231 09/23/24 1221 Inpatient consult to Cardiology Once Specialty: Cardiology Provider: (Not yet assigned) Question Answer Comment Consulting Group CARDIOLOGY TEAM Reason for Consult? Mary Lou-operative risk stratification Level of Consultation Consultation and [...] Post muscular skeletal surgical procedure 09/24/24 1242 [facility] 30 The patient is Moderately Stable [...] pain as ordered maintain safety precautions. [facility] 30 The patient is Moderately Stable [...] and behaviors that affect risk of falls Wittmann fall precautions as indicated by assessment Educate patient/family on patient safety, including physical limitations Instruct patient to call for assistance with activity based on assessment Modify environment to reduce risk of injury [facility] BASIC METABOLIC PANELon 09-13 Anion gap [Moles/Vol] 9 mmol/L Normal 7-20 [facility] Comment on above: Performed By: #### L [id number] #### [facility] ([facility]) [address] [place] [address] Calcium [Mass/Vol] 9.3 mg/dL Normal 8.6-10.3 [facility] Comment on above: Performed By: #### L [id number] #### [facility] ([facility] [address] [place] [address] Chloride [Moles/Vol] 99 mmol/L Normal 98-107 [facility] Comment on above: Performed By: #### L [id number] #### [facility] ([facility]) [address] [place] [address] CO2 [Moles/Vol] 33 mmol/L High 21-31 [facility] Comment on above: Performed By: #### L [id number] #### [facility] ([facility]) [address] [place] [address] Creatinine [Mass/Vol] 0.89 mg/dL Normal 0.70-1.30 [facility] Comment on above: Performed By: #### L [id number] #### [facility] ([facility]) [address] [place] [address] GLOMERULAR FILTRATION RATE ML/MIN/1.73 SQ M.PREDICTED 101.8 mL/min/1.73m*2 Normal >60.0 [facility] Comment on above: Result Comment: [facility]???s estimated glomerular filtration rate (eGFR) will [...] group of individuals. Performed By: #### L [id number] #### [facility] ([facility]) [address] [place] [address] Glucose [Mass/Vol] 95 mg/dL Normal 70-100 [facility] Comment on above: Performed By: #### L [id number] #### [facility] ([facility]) [address] [place] [address] Potassium [Moles/Vol] 4.1 mmol/L Normal 3.5-5.1 [facility] Comment on above: Performed By: #### L [id number] #### [facility] [address] [place] [address] Sodium [Moles/Vol] 137 mmol/L Normal 136-145 [facility] Comment on above: Performed By: #### L [id number] #### [facility] ([facility]) [address] [place] [address] Urea nitrogen [Mass/Vol] 17 mg/dL Normal 7-25 [facility] Comment on above: Performed By: #### L [id number] #### [facility] [facility] ([facility]) [address] [place] [address] UREA NITROGEN/CREATININE (MASS RATIO) IN SER/PLAS 19.1 Normal [facility] Comment on above: Performed By: #### L [id number] #### [facility] ([facility]) [address] [place] [address] CBCon 09-27-2024 Erythrocyte distribution width (RBC) [Ratio] 15.4 % High 11.5-15.0 [facility] Comment on above: Performed By: #### L [id number] #### [facility] ([facility]) [address] [place] [address] ERYTHROCYTE MEAN CORPUSCULAR HEMOGLOBIN CONCENTRATION (G/DL) BY AUTOMATED 30.8 g/dL Low 32.0-35.0 [facility] Comment on above: Performed By: #### L [id number] #### [facility] ([facility] [address] [place] [address] Hematocrit (Bld) [Volume fraction] 45.5 % Normal 39.0-55.0 [facility] Comment on above: Performed By: #### L [id number] #### [facility] ([facility] [address] [place] [address] Hemoglobin (Bld) [Mass/Vol] 14.0 g/dL Normal 13.0-17.0 [facility] Comment on above: Performed By: #### L [id number] #### [facility] ([facility]) [address] [place] [address] MCH (RBC) [Entitic mass] 26.5 pg Low 27.0-33.0 [facility] Comment on above: Performed By: #### L [id number] #### [facility] ([facility]) [address] [place] [address] MCV (RBC) [Entitic vol] 86.0 fL Normal 82.0-98.0 [facility] Comment on above: Performed By: #### L [id number] #### [facility] ([facility]) [address] [place] [address] PLATELETS (10*3/UL) IN BLOOD AUTOMATED COUNT 199 10*3/uL Normal 150-400 [facility] Comment on above: Performed By: #### L [id number] #### [facility] ([facility]) [address] [place] [address] RBC (Bld) [#/Vol] 5.29 10*6/uL Normal 4.20-5.70 [facility] Comment on above: Performed By: #### L [id number] #### [facility] ([facility]) [address] [place] [address] WBC (Bld) [#/Vol] 10.21 10*3/uL Normal 4.00-10.60 [facility] Comment on above: Performed By: #### L [id number] #### [facility] ([facility]) [address] [place] [address] MAGNESIUMon 09-27-2024 Magnesium [Mass/Vol] 1.9 mg/dL Normal 1.9-2.7 [facility] Comment on above: Performed By: #### L [id number] #### [facility] [address] [place] [address] PHOSPHORUSon 09-27-2024 Magnesium [Mass/Vol] 4.4 mg/dL Normal 2.5-5.0 [facility] Comment on above: Performed By: #### L [id number] #### [facility] ([facility]) [address] [place] [address] VENOUS BLOOD GAS WITH IONIZE D CALCIUMon 09-27-2024 Base excess Calc (BldV) [Moles/Vol] 9.2 mmol/L Normal [facility] Comment on above: Performed By: #### L [id number] ####[facility] [id number] [place] [address] [facility] CALCIUM IONIZED (MMOL/L) IN BLOOD 1.27 mmol/L Normal 1.15-1.33 [facility] Comment on above: Performed By: #### L [id number] ####[facility] [id number] [place] [address] [facility] CO2 (BldV) [Partial pressure] 50 mm[Hg] Normal 40-50 [facility] Comment on above: Performed By: #### L [id number] ####[facility] [id number] [place] [address] [facility] HCO3 (Bld) [Moles/Vol] 34.8 mmol/L Normal [facility] Comment on above: Performed By: #### L [id number] ####[facility] [id number] [place] [address] [facility] Oxygen (BldV) [Partial pressure] 53 mm[Hg] High 35-45 [facility] Comment on above: Performed By: #### L [id number] ####[facility] [id number] [place] [address] [facility] OXYGEN SATURATION (%) IN VENOUS BLOOD 87.1 % High 65.0-75.0 [facility] Comment on above: Performed By: #### L [id number] ####[facility] [id number] [place] [address] [facility] PH OF VENOUS BLOOD 7.45 High 7.31-7.41 [facility] Comment on above: Performed By: #### L [id number] ####[facility] [id number] [place] [address] [facility] BASIC METABOLIC PANELon 09-13 Anion gap [Moles/Vol] 8 mmol/L Normal 7-20 [facility] Comment on above: Performed By: #### L [id number] #### [facility] ([facility]) [address] [place] [address] Calcium [Mass/Vol] 9.4 mg/dL Normal 8.6-10.3 [facility] Comment on above: Performed By: #### L [id number] #### [facility] ([facility]) [address] [place] [address] Chloride [Moles/Vol] 99 mmol/L Normal 98-107 [facility] Comment on above: Performed By: #### L [id number] #### [facility] ([facility]) [address] [place] [address] CO2 [Moles/Vol] 36 mmol/L High 21-31 [facility] Comment on above: Performed By: #### L [id number] #### [facility] ([facility]) [address] [place] [address] Creatinine [Mass/Vol] 0.91 mg/dL Normal 0.70-1.30 [facility] Comment on above: Performed By: #### L [id number] #### [facility] ([facility]) [address] [place] [address] GLOMERULAR FILTRATION RATE ML/MIN/1.73 SQ M.PREDICTED 100.2 mL/min/1.73m*2 Normal >60.0 [facility] Comment on above: Result Comment: [facility]???s estimated glomerular filtration rate (eGFR) will [...] group of individuals. Performed By: #### L [id number] #### [facility] ([facility]) [address] [place] [address] Glucose [Mass/Vol] 85 mg/dL Normal 70-100 [facility] Comment on above: Performed By: #### L [id number] #### [facility] ([facility]) [address] [place] [address] Potassium [Moles/Vol] 3.8 mmol/L Normal 3.5-5.1 [facility] Comment on above: Performed By: #### L [id number] #### [facility] ([facility]) [address] [place] [address] Sodium [Moles/Vol] 139 mmol/L Normal 136-145 [facility] Comment on above: Performed By: #### L [id number] #### [facility] ([facility]) [address] [place] [address] Urea nitrogen [Mass/Vol] 18 mg/dL Normal 7-25 [facility] Comment on above: Performed By: #### L [id number] #### [facility] ([facility]) [address] [place] [address] UREA NITROGEN/CREATININE (MASS RATIO) IN SER/PLAS 19.8 Normal [facility] Comment on above: Performed By: #### L [id number] #### [facility] ([facility]) [address] [place] [address] CBCon 09-26-2024 Erythrocyte distribution width (RBC) [Ratio] 15.4 % High 11.5-15.0 [facility] Comment on above: Performed By: #### L [id number] #### [facility] ([facility]) [address] [place] [address] ERYTHROCYTE MEAN CORPUSCULAR HEMOGLOBIN CONCENTRATION (G/DL) BY AUTOMATED 31.1 g/dL Low 32.0-35.0 [facility] Comment on above: Performed By: #### L [id number] #### [facility] ([facility]) [address] [place] [address] Hematocrit (Bld) [Volume fraction] 43.8 % Normal 39.0-55.0 [facility] Comment on above: Performed By: #### L [id number] #### [facility] ([facility]) [address] [place] [address] Hemoglobin (Bld) [Mass/Vol] 13.6 g/dL Normal 13.0-17.0 [facility] Comment on above: Performed By: #### L [id number] #### [facility] ([facility]) [address] [place] [address] MCH (RBC) [Entitic mass] 26.3 pg Low 27.0-33.0 [facility] Comment on above: Performed By: #### L [id number] #### [facility] ([facility]) [address] [place] [address] MCV (RBC) [Entitic vol] 84.7 fL Normal 82.0-98.0 [facility] Comment on above: Performed By: #### L [id number] #### [facility] ([facility]) [address] [place] [address] PLATELETS (10*3/UL) IN BLOOD AUTOMATED COUNT 186 10*3/uL Normal 150-400 [facility] Comment on above: Performed By: #### L [id number] #### [facility] ([facility]) [address] [place] [address] RBC (Bld) [#/Vol] 5.17 10*6/uL Normal 4.20-5.70 [facility] Comment on above: Performed By: #### L [id number] #### [facility] ([facility]) [address] [place] [address] WBC (Bld) [#/Vol] 9.63 10*3/uL Normal 4.00-10.60 [facility] Comment on above: Performed By: #### L [id number] #### [facility] ([facility]) [address] [place] [address] MAGNESIUMon 09-26-2024 Magnesium [Mass/Vol] 1.9 mg/dL Normal 1.9-2.7 [facility] Comment on above: Performed By: #### L [id number] #### [facility] ([facility]) [address] [place] [address] PHOSPHORUSon 09-26-2024 Magnesium [Mass/Vol] 2.6 mg/dL Normal 2.5-5.0 [facility] Comment on above: Performed By: #### L [id number] #### [facility] ([facility]) [address] [place] [address] 30on 09-25-2024 30 Problem: Pain - Adul [...] barriers include consult for respiratory therapy. Normal [facility] 30 Daily Case Managemen t Update [...] spouse would like to go home with [facility]. Referrals sent, pending accepting [facility] agency. DME recommended--gabrielle khalil, ariadna kilgore, bedside [...] R tib fib facrture Level of Consultation Scooping Machine Tender assumes full responsibility 09/23/24 1231 09/23/24 1221 Inpatient consult to Cardiology Once Specialty: Cardiology Provider: (Not yet assigned) Question Answer Comment Consulting Group CARDIOLOGY TEAM Reason for Consult? Mary Lou-operative risk stratification Level of Consultation Consultation and [...] muscular skeletal surgical procedure 09/24/24 1242 Normal [facility] BASIC METABOLIC PANELon 09-13 Anion gap [Moles/Vol] 9 mmol/L Normal - [facility] Comment on above: Performed By: #### L [id number] ####[facility] ([facility])[address] [facility] [place] [address] Calcium [Mass/Vol] 8.9 mg/dL Normal 8.6-10.3 [facility] Comment on above: Performed By: #### L [id number] ####[facility] ([facility])[address] [facility] [place] [address] Chloride [Moles/Vol] 97 mmol/L Low 98-107 [facility] Comment on above: Performed By: #### L [id number] ####[facility] ([facility])[address] [facility] [place] [address] CO2 [Moles/Vol] 32 mmol/L High 21-31 [facility] Comment on above: Performed By: #### L [id number] ####[facility] ([facility])[address] [facility] [place] [address] Creatinine [Mass/Vol] 0.91 mg/dL Normal 0.70-1.30 [facility] Comment on above: Performed By: #### L [id number] ####[facility] ([facility])[address] [place] [address] GLOMERULAR FILTRATION RATE ML/MIN/1.73 SQ M.PREDICTED 100.2 mL/min/1.73m*2 Normal >60.0 [facility] Comment on above: Result Comment: [facility]???s estimated glomerular filtration rate (eGFR) will [...] of individuals. Performed By: #### L [id number] ####[facility] ([facility])[address] [place] [address] Glucose [Mass/Vol] 141 mg/dL High 70-100 [facility] Comment on above: Performed By: #### L [id number] ####[facility] ([facility])[address] [place] [address] Potassium [Moles/Vol] 4.2 mmol/L Normal 3.5-5.1 [facility] Comment on above: Performed By: #### L [id number] ####[facility] ([facility])[address] [place] [address] Sodium [Moles/Vol] 134 mmol/L Low 136-145 [facility] Comment on above: Performed By: #### L [id number] ####[facility] ([facility])[address] [place] [address] Urea nitrogen [Mass/Vol] 15 mg/dL Normal 7-25 [facility] Comment on above: Performed By: #### L [id number] ####[facility] ([facility])[address] [place] [address] UREA NITROGEN/CREATININE (MASS RATIO) IN SER/PLAS 16.5 Normal [facility] Comment on above: Performed By: #### L [id number] ####[facility] ([facility])[address] [place] [address] CBCon 09-25-2024 Erythrocyte distribution width (RBC) [Ratio] 14.9 % Normal 11.5-15.0 [facility] Comment on above: Performed By: #### L [id number] #### [facility] ([facility]) [address] [place] [address] ERYTHROCYTE MEAN CORPUSCULAR HEMOGLOBIN CONCENTRATION (G/DL) BY AUTOMATED 31.1 g/dL Low 32.0-35.0 [facility] Comment on above: Performed By: #### L [id number] #### [facility] ([facility]) [address] [place] [address] Hematocrit (Bld) [Volume fraction] 45.4 % Normal 39.0-55.0 [facility] Comment on above: Performed By: #### L [id number] #### [facility] ([facility]) [address] [place] [address] Hemoglobin (Bld) [Mass/Vol] 14.1 g/dL Normal 13.0-17.0 [facility] Comment on above: Performed By: #### L [id number] #### [facility] ([facility]) [address] [place] [address] MCH (RBC) [Entitic mass] 26.3 pg Low 27.0-33.0 [facility] Comment on above: Performed By: #### L [id number] #### [facility] ([facility]) [address] [place] [address] MCV (RBC) [Entitic vol] 84.5 fL Normal 82.0-98.0 [facility] Comment on above: Performed By: #### L [id number] #### [facility] ([facility]) [address] [place] [address] PLATELETS (10*3/UL) IN BLOOD AUTOMATED COUNT 205 10*3/uL Normal 150-400 [facility] Comment on above: Performed By: #### L [id number] #### [facility] ([facility]) [address] [place] [address] RBC (Bld) [#/Vol] 5.37 10*6/uL Normal 4.20-5.70 [facility] Comment on above: Performed By: #### L [id number] #### [facility] ([facility]) [address] [place] [address] WBC (Bld) [#/Vol] 14.37 10*3/uL High 4.00-10.60 [facility] Comment on above: Performed By: #### L [id number] #### [facility] ([facility]) [address] [place] [address] MAGNESIUMon 09-25-2024 Magnesium [Mass/Vol] 2.1 mg/dL Normal 1.9-2.7 [facility] Comment on above: Performed By: #### L [id number] ####[facility] ([facility])[address] [place] [address] NURSNOTEon 09-25-2024 YSABEL Trauma RN met adrian dunham at bedside and provided the Trauma Services Patient Brochure. Patient will follow-up with Orthopedics 10/05/2024 at 0900. No further needs currently. Normal [facility] PHOSPHORUSon 09-25-2024 Magnesium [Mass/Vol] 2.8 mg/dL Normal 2.5-5.0 [facility] Comment on above: Performed By: #### L [id number] ####[facility] ([facility])[address] [place] [address] 30on 09-24-2024 30 The patient is Moderately [...] Free from fall injury Outcome: Progressing Normal [facility] BASIC METABOLIC PANELon 09-13 Anion gap [Moles/Vol] 8 mmol/L Normal 7-20 [facility] Comment on above: Performed By: #### L [id number] ####[facility] ([facility])[address] [place] [address] Calcium [Mass/Vol] 9.1 mg/dL Normal 8.6-10.3 [facility] Comment on above: Performed By: #### L [id number] ####[facility] ([facility])[address] [place] [address] Chloride [Moles/Vol] 98 mmol/L Normal 98-107 [facility] Comment on above: Performed By: #### L [id number] ####[facility] ([facility])[address] [place] [address] CO2 [Moles/Vol] 35 mmol/L High 21- [facility] Comment on above: Performed By: #### L [id number] ####[facility] ([facility])[address] [place] [address] Creatinine [Mass/Vol] 1.02 mg/dL Normal 0.70-1.30 [facility] Comment on above: Performed By: #### L [id number] ####[facility] ([facility])[address] [place] [address] GLOMERULAR FILTRATION RATE ML/MIN/1.73 SQ M.PREDICTED 87.3 mL/min/1.73m*2 Normal >60.0 [facility] Comment on above: Result Comment: [facility]???s estimated glomerular filtration rate (eGFR) will [...] of individuals. Performed By: #### L [id number] ####[facility] ([facility])[address] [place] [address] Glucose [Mass/Vol] 103 mg/dL High 70-100 [facility] Comment on above: Performed By: #### L [id number] ####[facility] ([facility])[address] [place] [address] Potassium [Moles/Vol] 4.2 mmol/L Normal 3.5-5.1 [facility] Comment on above: Performed By: #### L [id number] ####[facility] ([facility])[address] [place] [address] Sodium [Moles/Vol] 137 mmol/L Normal 136-145 [facility] Comment on above: Performed By: #### L [id number] ####[facility] ([facility])[address] [place] [address] Urea nitrogen [Mass/Vol] 11 mg/dL Normal 7-25 [facility] Comment on above: Performed By: #### L [id number] ####[facility] ([facility])[address] [place] [address] UREA NITROGEN/CREATININE (MASS RATIO) IN SER/PLAS 10.8 Normal [facility] Comment on above: Performed By: #### L [id number] ####[facility] ([facility])[address] [place] [address] CBCon 09-24-2024 Erythrocyte distribution width (RBC) [Ratio] 15.5 % High 11.5-15.0 [facility] Comment on above: Performed By: #### L [id number] #### [facility] ([facility]) [address] [place] [address] ERYTHROCYTE MEAN CORPUSCULAR HEMOGLOBIN CONCENTRATION (G/DL) BY AUTOMATED 30.4 g/dL Low 32.0-35.0 [facility] Comment on above: Performed By: #### L [id number] #### [facility] [address] [place] [address] Hematocrit (Bld) [Volume fraction] 46.4 % Normal 39.0-55.0 [facility] Comment on above: Performed By: #### L [id number] #### [facility] ([facility]) [address] [place] [address] Hemoglobin (Bld) [Mass/Vol] 14.1 g/dL Normal 13.0-17.0 [facility] Comment on above: Performed By: #### L [id number] #### [facility] ([facility]) [address] [place] [address] MCH (RBC) [Entitic mass] 26.4 pg Low 27.0-33.0 [facility] Comment on above: Performed By: #### L [id number] #### [facility] ([facility]) [address] [place] [address] MCV (RBC) [Entitic vol] 86.7 fL Normal 82.0-98.0 [facility] Comment on above: Performed By: #### L [id number] #### [facility] ([facility]) [address] [place] [address] PLATELETS (10*3/UL) IN BLOOD AUTOMATED COUNT 175 10*3/uL Normal 150-400 [facility] Comment on above: Performed By: #### L [id number] #### [facility] ([facility]) [address] [place] [address] RBC (Bld) [#/Vol] 5.35 10*6/uL Normal 4.20-5.70 [facility] Comment on above: Performed By: #### L [id number] #### [facility] ([facility]) [address] [place] [address] WBC (Bld) [#/Vol] 7.56 10*3/uL Normal 4.00-10.60 [facility] Comment on above: Performed By: #### L [id number] #### [facility] ([facility]) [address] [place] [address] CONSULTon 09-24-2024 CONSULT Physical Medicine an d Rehabilitation Consult Note Patient not staffed by PM&R today due to surgery today for IMN placement. Our team will staff tomorrow, 09/25/23. Silvia Zaldivar MD [facility] MAGNESIUMon 09-24-2024 Magnesium [Mass/Vol] 2.2 mg/dL Normal 1.9-2.7 [facility] Comment on above: Performed By: #### L [id number] #### [facility] ([facility]) [address] [place] [address] OPNOTEon 09-24-2024 OPNOTE -- Attestation signed by [...] Operative Note Date: 09/23/2024 - 09/24/2024 Location: [facility] OR Name: Matty Garces, : 1970, Diagnosis Pre-op Diagnosis * Closed fracture of right tibia and fibula, initial encounter [S82.201A, S82.401A] * Fall at home, initial encounter [W19.XXXA, Y92.009] Post-op Diagnosis * Closed fracture of right tibia and fibula, initial encounter [S82.201A, S82.401A] * Fall at home, initial encounter [W19.XXXA, Y92.009] Procedures Treatment of right tibial shaft fracture by intramedullary implant with interlocking screws [CPT: 60011] Stress exam of right ankle under anesthesia [CPT: 37130] Intraoperative use of fluoroscopy less than 1 hour by physician [CPT: 56409] Surgeons Primary: Sandrine Hahn MD Resident - [...] mm x 34 mm interlocking screw Staff: [employer] Supervisor: Emi Francis RN Operations And Maintenance Manager: CHARLINE Montejo Scrub Person: Araseli Butler CST Indications: Matty Garces is an 53 y.o. male who presented as a transfer from [facility] on 09/23/2024. Patient was transferred due to findings of a right distal third tibial shaft fracture after a fall in the shower. The fracture was closed and was subsequently reduced and splinted at [place] in a long-leg splint. Patient made stable [...] soft t (more content not included)... Normal [facility] PHOSPHORUSon 09-24-2024 Magnesium [Mass/Vol] 4.0 mg/dL Normal 2.5-5.0 [facility] Comment on above: Performed By: #### L [id number] #### [facility] ([facility]) [address] [place] [address] POCT GLUCOSE METER UNSOLICIT ED RESULTSon 09-24-2024 Glucose [Mass/Vol] 100 mg/dL Normal 70-105 [facility] Comment on above: Order Comment: Waive d Testing in the ED is performed under the ED CLIA certificate #[id number]. Result Comment: asor [email or web address] Performed By: #### L [id number] #### [facility] [address] [place] [address] APTTon 09-23-2024 ACTIVATED PARTIAL THROMBOPLASTIN TIME IN PPP BY COAGULATION ASSAY 31.2 Seconds Normal 25.0-35.0 [facility] Comment on above: Result Comment: Clin ical significance of the APTT is questionable in the presence of heparin. Performed By: #### L [id number] ####[facility] ([facility])[address] [place] [address] CBC WITH AUTO DIFFERENTIALon 09-23-2024 Basophils (Bld) [#/Vol] 0.05 10*3/uL Normal 0.00-0.20 [facility] Comment on above: Performed By: #### L [id number] ####[facility] ([facility])[address] [place] [address] Basophils/100 WBC (Bld) 0.5 % Normal 0.0-1.0 [facility] Comment on above: Performed By: #### L [id number] ####[facility] ([facility])[address] [place] [address] Eosinophils (Bld) [#/Vol] 0.11 10*3/uL Normal 0.00-0.50 [facility] Comment on above: Performed By: #### L [id number] ####[facility] ([facility])[address] [place] [address] Eosinophils/100 WBC (Bld) 1.0 % Normal 0.0-6.0 [facility] Comment on above: Performed By: #### L [id number] ####[facility] ([facility])[address] [place] [address] Erythrocyte distribution width (RBC) [Ratio] 15.9 % High 11.5-15.0 [facility] Comment on above: Performed By: #### L [id number] ####[facility] ([facility])[address] [place] [address] ERYTHROCYTE MEAN CORPUSCULAR HEMOGLOBIN CONCENTRATION (G/DL) BY AUTOMATED 30.3 g/dL Low 32.0-35.0 [facility] Comment on above: Performed By: #### L [id number] ####[facility] ([facility])[address] [place] [address] Hematocrit (Bld) [Volume fraction] 47.8 % Normal 39.0-55.0 [facility] Comment on above: Performed By: #### L [id number] ####[facility] ([facility])[address] [place] [address] Hemoglobin (Bld) [Mass/Vol] 14.5 g/dL Normal 13.0-17.0 [facility] Comment on above: Performed By: #### L [id number] ####[facility] ([facility])[address] [place] [address] Immature granulocytes (Bld) [#/Vol] 0.10 10*3/uL Normal 0.00-0.20 [facility] Comment on above: Performed By: #### L [id number] ####[facility] ([facility])[address] [place] [address] Immature granulocytes/100 WBC (Bld) 0.9 % Normal 0.0-1.0 [facility] Comment on above: Performed By: #### L [id number] ####[facility] ([facility])[address] [place] [address] Lymphocytes (Bld) [#/Vol] 0.74 10*3/uL Low 1.20-4.00 [facility] Comment on above: Performed By: #### L [id number] ####[facility] ([facility] [place] [address] Lymphocytes/100 WBC (Bld) 7.0 % Low 20.0-45.0 [facility] Comment on above: Performed By: #### L [id number] ####[facility] ([facility])[address] [place] [address] MCH (RBC) [Entitic mass] 26.4 pg Low 27.0-33.0 [facility] Comment on above: Performed By: #### L [id number] ####[facility] ([facility])[address] [place] [address] MCV (RBC) [Entitic vol] 87.1 fL Normal 82.0-98.0 [facility] Comment on above: Performed By: #### L [id number] ####[facility] ([facility])[address] [place] [address] Monocytes (Bld) [#/Vol] 0.73 10*3/uL Normal 0.10-1.00 [facility] Comment on above: Performed By: #### L [id number] ####[facility] ([facility])[address] [place] [address] Monocytes/100 WBC (Bld) 6.9 % Normal 5.0-12.0 [facility] Comment on above: Performed By: #### L [id number] ####[facility] ([facility])[address] [place] [address] Neutrophils (Bld) [#/Vol] 8.83 10*3/uL High 1.60-7.60 [facility] Comment on above: Performed By: #### L [id number] ####[facility] ([facility] [place] [address] Neutrophils/100 WBC (Bld) 83.7 % High 40.0-72.0 [facility] Comment on above: Performed By: #### L [id number] ####[facility] ([facility] [place] [address] NRBC (PER 100 WBCS) BY AUTOMATED COUNT 0.0 % Normal 0 [facility] Comment on above: Performed By: #### L [id number] ####[facility] ([facility])[address] [place] [address] PLATELETS (10*3/UL) IN BLOOD AUTOMATED COUNT 188 10*3/uL Normal 150-400 [facility] Comment on above: Performed By: #### L [id number] ####[facility] ([facility])[address] [place] [address] RBC (Bld) [#/Vol] 5.49 10*6/uL Normal 4.20-5.70 [facility] Comment on above: Performed By: #### L [id number] ####[facility] ([facility] [place] [address] WBC (Bld) [#/Vol] 10.56 10*3/uL Normal 4.00-10.60 [facility] Comment on above: Performed By: #### L [id number] ####[facility] ([facility])[address] [place] [address] COMPREHENSIVE METABOLIC PANE Clif 09-23-2024 Albumin [Mass/Vol] 3.9 g/dL Normal 3.5-5.7 [facility] Comment on above: Performed By: #### L [id number] ####[facility] ([facility] [place] [address] ALP [Catalytic activity/Vol] 98 U/L Normal 34-104 [facility] Comment on above: Performed By: #### L [id number] ####[facility] ([facility])[address] [place] [address] ALT [Catalytic activity/Vol] 34 U/L Normal 7-52 [facility] Comment on above: Performed By: #### L [id number] ####[facility] ([facility])[address] [place] [address] Anion gap [Moles/Vol] 11 mmol/L Normal 7-20 [facility] Comment on above: Performed By: #### L [id number] ####[facility] ([facility])[address] [place] [address] AST [Catalytic activity/Vol] 63 U/L High 13-39 [facility] Comment on above: Performed By: #### L [id number] ####[facility] ([facility])[address] [place] [address] Bilirubin [Mass/Vol] 0.7 mg/dL Normal 0.3-1.0 [facility] Comment on above: Performed By: #### L [id number] ####[facility] ([facility])[address] [place] [address] Calcium [Mass/Vol] 8.9 mg/dL Normal 8.6-10.3 [facility] Comment on above: Performed By: #### L [id number] ####[facility] ([facility] [place] [address] Chloride [Moles/Vol] 101 mmol/L Normal 98-107 [facility] Comment on above: Performed By: #### L [id number] ####[facility] ([facility] [place] [address] CO2 [Moles/Vol] 27 mmol/L Normal 21-31 [facility] Comment on above: Performed By: #### L [id number] ####[facility] ([facility])[address] [place] [address] Creatinine [Mass/Vol] 0.96 mg/dL Normal 0.70-1.30 [facility] Comment on above: Performed By: #### L [id number] ####[facility] ([facility])[address] [place] [address] GLOMERULAR FILTRATION RATE ML/MIN/1.73 SQ M.PREDICTED 93.9 mL/min/1.73m*2 Normal >60.0 [facility] Comment on above: Result Comment: [facility]???s estimated glomerular filtration rate (eGFR) will [...] of individuals. Performed By: #### L [id number] ####[facility] ([facility] [place] [address] Glucose [Mass/Vol] 93 mg/dL Normal 70-100 [facility] Comment on above: Performed By: #### L [id number] ####[facility] ([facility])[address] [place] [address] Potassium [Moles/Vol] 4.3 mmol/L Normal 3.5-5.1 [facility] Comment on above: Performed By: #### L [id number] ####[facility] ([facility])[address] [place] [address] Protein [Mass/Vol] 7.2 g/dL Normal 6.0-8.3 [facility] Comment on above: Performed By: #### L [id number] ####[facility] ([facility])[address] [place] [address] Sodium [Moles/Vol] 135 mmol/L Low 136-145 [facility] Comment on above: Performed By: #### L [id number] ####[facility] ([facility])[address] [place] [address] Urea nitrogen [Mass/Vol] 8 mg/dL Normal 7-25 [facility] Comment on above: Performed By: #### L [id number] ####[facility] ([facility])[address] [place] [address] UREA NITROGEN/CREATININE (MASS RATIO) IN SER/PLAS 8.3 Normal [facility] Comment on above: Performed By: #### L [id number] ####[facility] ([facility])[address] [place] [address] CONSULTon 09-23-2024 CONSULT -- Attestation signed by [...] Alvarez MD Orthopaedic Surgery, Resident Ortho Pager [phone] 09/23/24 6:55 PM May contact the on-call resident with any concerns via the Orthopaedic pager at any time. Normal [facility] CT ABDOMEN PELVIS W IV CONTR [...] advised. * Electronically signed: Fahad Frazier. Normal [facility] CT CERVICAL SPINE WO IV CONT [...] nor listhesis. Electronically signed: Fahad Frazier. Normal [facility] CT CHEST W IV CONTRASTon CT [...] is recommended. Electronically signed: Fahad Frazier. Normal [facility] CT HEAD WO IV CONTRASTon CT [...] brain * Electronically signed: Fahad Frazier. Normal [facility] CT TIBIA FIBULA RIGHT WO IV [...] the knee Electronically signed: Fahad Frazier. Normal [facility] EDNURSon 09-23-2024 EDNURS Mode of arrival (squ ad #, walk in, police, etc): [facility] Chief complaint(s): Right leg fracture Arrival Note (brief scenario, treatment COB SAWYER, etc): Patient arrives via [facility] from [facility] to be seen by orthopedics for Right tib-fib fracture. Patient arrives with Rt leg splinted Normal [facility] EDPROVon 09-23-2024 EDPROV History of Present Illness Chief Complaint Patient presents with Leg Injury Initial evaluation completed by Dr. Lang. Matty Garces is a 53 y/o male presenting to the ED with c/o leg injury. Pt was transferred from [facility] for right distal tibfib fracture. Pt states [...] what they are. History provided by: Patient Kennedy Coma Scale Score: 15 History Past Medical [...] encounter Fall, initial encounter Medical Decision Making IMelanie Jose valerio, documented on behalf of Dr. Lang. Chief [...] Procedure Abnormality Status --------- ------ CBC auto differential[[id number]] Abnormal Final result Please view results for these tests on the individual orders. TYPE AND SCREEN ABO G (more content not included)... Normal [facility] ETHANOLon 09-23-2024 ETHANOL (MG/DL) IN SER/PLAS <10 Normal <10 [facility] Comment on above: Performed By: #### L [id number] #### [facility] ([facility]) [address] [place] [address] ETHANOL CALCULATED (%) <0.01 Normal [facility] Comment on above: Performed By: #### L [id number] #### [facility] ([facility]) [address] [place] [address] HPon 09-23-2024 [facility] Trauma Surgery Chief Complaint: Trauma Fall Mechanism of Injury: 53 y.o. year old male who was brought in via EMS. He had no C-collar or back board in place. Circumstances of injury: Patient states that he was recently admitted to [place] for cellulitis to the E, he was discharged yesterday and this morning was home, he got out of bed to take a shower and had a micro seizure and heard his right ankle snap. Denies hitting head or LOC but admits that he doesn't remember the whole event. He went back to [place] ED where a right tib/fib fracture was found and patient was transferred to [facility] Of note patient is on anticoagulant/antiplat elets. Baby aspirin, however he was receiving Shots to prevent blood clots while inpatient at [place] Review of Systems: General: No For Chills, [...] Marijuana. Family History: pulled available information in [facility] from previous visits No family history on [...] lb)] 136 kg (300 lb) (09/23 1048) Kennedy Coma Scale Score: 15 No intake or output data in the 24 hours ending 09/23/24 1500 Physical Exam: General: Awake, Alert, No acute [...] Neck: Cervica (more content not included)... Normal [facility] LACTIC ACID, PLASMAon 2024 LACTATE (MMOL/L) IN SER/PLAS 0.6 mmol/L Normal 0.5-2.2 [facility] Comment on above: Performed By: #### L [id number] #### [facility] ([facility]) [address] [place] [address] MAGNESIUMon 09-23-2024 Magnesium [Mass/Vol] 1.8 mg/dL Low 1.9-2.7 [facility] Comment on above: Performed By: #### L [id number] ####[facility] ([facility])[address] [place] [address] PHOSPHORUSon 09-23-2024 Magnesium [Mass/Vol] 3.5 mg/dL Normal 2.5-5.0 [facility] Comment on above: Performed By: #### L [id number] #### [facility] ([facility]) [address] [place] [address] PROTIME-INRon 09-23-2024 INR IN PPP BY COAGULATION ASSAY 1.28 High 0.90-1.10 [facility] Comment on above: Result Comment: ACCC [...] RANGE. CHEST 1995;108:231S-246S. Performed By: #### L [id number] #### [facility] ([facility]) [address] [place] [address] PROTHROMBIN TIME (PT) IN PPP BY COAGULATION ASSAY 15.9 Seconds High 12.3-14.8 [facility] Comment on above: Performed By: #### L [id number] #### [facility] ([facility]) [address] [place] [address] TOXICOLOGY PANEL URINEon AMPHETAMINE+METHAMPH ETAMINE SCREEN (PRESENCE) IN URINE Negative Normal Negative [facility] Comment on above: Performed By: #### L [id number] #### [facility] ([facility]) [address] [place] [address] BARBITURATES PRESENCE IN URINE BY SCREEN METHOD Negative Normal Negative [facility] Comment on above: Performed By: #### L [id number] #### [facility] ([facility]) [address] [place] [address] Benzodiazepines Ql (U) Negative Normal Negative [facility] Comment on above: Performed By: #### L [id number] #### [facility] ([facility]) [address] [place] [address] CANNABINOID (PRESENCE) IN URINE BY SCREEN METHOD Negative Normal Negative [facility] Comment on above: Performed By: #### L [id number] #### [facility] ([facility]) [address] [place] [address] Cocaine Ql (U) Negative Normal Negative [facility] Comment on above: Performed By: #### L [id number] #### [facility] ([facility]) [address] [place] [address] METHADONE (PRESENCE) IN URINE BY SCREEN METHOD Negative Normal Negative [facility] Comment on above: Performed By: #### L [id number] #### [facility] ([facility]) [address] [place] [address] OPIATES (PRESENCE) IN URINE BY SCREEN METHOD Positive Abnormal Negative [facility] Comment on above: Performed By: #### L [id number] #### [facility] ([facility]) [address] [place] [address] PHENCYCLIDINE PRESENCE IN URINE BY SCREEN METHOD Negative Normal Negative [facility] Comment on above: Performed By: #### L [id number] #### [facility] ([facility]) [address] [place] [address] Propoxyphene Screen Ql (U) Negative Normal Negative [facility] Comment on above: Performed By: #### L [id number] #### [facility] ([facility]) [address] [place] [address] TRICYCLIC ANTIDEPRESSANTS (PRESENCE) IN URINE Negative Normal Negative [facility] Comment on above: Performed By: #### L [id number] #### [facility] ([facility]) [address] [place] [address] TROPONIN Ion 09-23-2024 Troponin I.cardiac [Mass/Vol] 0.01 ng/mL Normal 0.00-0.04 [facility] Comment on above: Performed By: #### L [id number] #### [facility] ([facility]) [address] [place] [address] TYPE AND SCREENon 09-23-2024 AB SCREEN Negative Normal [facility] Comment on above: Performed By: #### L [id number] #### [facility] ([facility]) [address] [place] [address] ABO group Nom (Bld) A Normal [facility] Comment on above: Performed By: #### L [id number] #### [facility] ([facility]) [address] [place] [address] RH TYPE IN BLOOD Positive Normal [facility] Comment on above: Performed By: #### L [id number] #### [facility] ([facility]) [address] [place] [address] URINALYSISon 09-23-2024 BILIRUBIN, TOTAL PRESENCE IN URINE Negative Normal Negative [facility] Comment on above: Order Comment: Micro scopics not performed on urines with negative chemical reactions unless requested on original order. Performed By: #### L [id number] ####[facility] ([facility])[address] [place] [address] Clarity (U) Clear Normal Clear [facility] Comment on above: Order Comment: Micro scopics not performed on urines with negative chemical reactions unless requested on original order. Performed By: #### L [id number] ####[facility] ([facility])[address] [facility] [address] Color (U) Yellow Normal Colorless, Yellow, Light-Yellow [facility] Comment on above: Order Comment: Micro scopics not performed on urines with negative chemical reactions unless requested on original order. Performed By: #### L [id number] ####[facility] ([facility])[address] [facility] [address] GLUCOSE (MG/DL) IN URINE Normal Normal Normal [facility] Comment on above: Order Comment: Micro scopics not performed on urines with negative chemical reactions unless requested on original order. Performed By: #### L [id number] ####[facility] ([facility])[address] [place] [address] HEMOGLOBIN PRESENCE IN URINE Negative Normal Negative [facility] Comment on above: Order Comment: Micro scopics not performed on urines with negative chemical reactions unless requested on original order. Performed By: #### L [id number] ####[facility] ([facility])[address] [place] [place] [address] Ketones Ql (U) Negative Normal Negative [facility] Comment on above: Order Comment: Micro scopics not performed on urines with negative chemical reactions unless requested on original order. Performed By: #### L [id number] ####[facility] ([facility])[address] [place] [place] [address] LEUKOCYTE ESTERASE PRESENCE IN URINE BY TEST STRIP Negative Normal Negative [facility] Comment on above: Order Comment: Micro scopics not performed on urines with negative chemical reactions unless requested on original order. Performed By: #### L [id number] ####[facility] ([facility])[address] [place] [address] NITRITE PRESENCE IN URINE Negative Normal Negative [facility] Comment on above: Order Comment: Micro scopics not performed on urines with negative chemical reactions unless requested on original order. Performed By: #### L [id number] ####[facility] ([facility])[address] [place], [place] [address] pH (U) 6.0 [pH] Normal 5.0-8.0 [facility] Comment on above: Order Comment: Micro scopics not performed on urines with negative chemical reactions unless requested on original order. Performed By: #### L [id number] ####[facility] ([facility])[address] [place], [place] [address] Protein (U) [Mass/Vol] Negative Normal Negative [facility] Comment on above: Order Comment: Micro scopics not performed on urines with negative chemical reactions unless requested on original order. Performed By: #### L [id number] ####[facility] ([facility])[address] [place] [address] Specific gravity (U) [Rel density] 1.050 High 1.010-1.030 [facility] Comment on above: Order Comment: Micro scopics not performed on urines with negative chemical reactions unless requested on original order. Performed By: #### L [id number] ####[facility] ([facility])[address] [place] [address] UROBILINOGEN (MG/DL) IN URINE Normal Normal Normal [facility] Comment on above: Order Comment: Micro scopics not performed on urines with negative chemical reactions unless requested on original order. Performed By: #### L [id number] ####[facility] ([facility])[address] [place] [address] VITAMIN D 25 HYDROXYon 09-23 CALCIDIOL (25 [place] VITAMIN D3) (NG/ML) IN SER/PLAS 42.6 ng/mL Normal 30.0-80.0 [facility] Comment on above: Result Comment: >80. 0 Toxicity possible Performed By: #### L [id number] #### [facility] ([facility]) [address] [place] [address] Superficial Wound Cultureon 09-21-2024 Superficial Wound Culture [...] RESISTANT TO ALL B-LACTAM DRUGS. PERFORMED BY: [place] [address] PATHOLOGIST CHARGE AUTHORIZER STEVE ANGEL M.D. Normal [facility] Comment on above: Performed By: #### C USUP #### [address] 01-03-2024 L Specimen: [id number] Received: 01/03/24 Status: GIOVANNI Prince Num: [id number] Spec Type: Surgical Subm Dr: Trey Vallejo DPM, MS Tissues: A Bone Fragments - Pathologic Fracture (PROXIMAL PHALANX RIGHT HALLU) Procedures: HE/2, Gross/Micro L5, Decalcification Age/ Patient Sex Location Account Attending Physician Matty Garces 53/M LABELL [id number] Trey Vallejo DPM, MS SPEC NUM: [id number] RECD: 01/03/24 STATUS: GIOVANNI PRINCE NUM: [id number] SOFY: 01/03/[address]: Trey Vallejo DPM, MS ENTERED: 01/03/[address]: Toño,Ayesha SPEC TYPE: Surgical DEPT: SEEMA [...] Sectioning reveals unremarkable yellow, spongy bone matrix. Clinical Education Manager sections are submitted in A1 following decal. Clinical history: Non-pressure chronic ulcer . Right hallux IPJ arthroplasty with wound debridement and graft application TW ---- Specimen: [id number] Received: 01/03/24 Status: GIOVANNI Ophelia Num: [id number] Spec Type: Surgical Subm Dr: Trey Vallejo,DPM, MS Tissues: A Bone Fragments - Pathologic Fracture (PROXIMAL PHALANX RIGHT HALLU) Procedures: ACRMENDilan, Gross/Micro L5, Decalcification ---- Patient: Matty Garces [id number] (Continued) ---- Specimen: [id number] Received: 01/03/24 (Continued) Signed (signature on file) Viral Rae MD 01/06/24 1838 ---- Specimen: [id number] Received: 01/03/24 Status: GIAToni Prince Num: [id number] Spec Type: Surgical Subm Dr: Trey Vallejo,[place], [place] Tissues: A Bone Fragments - Pathologic Fracture (PROXIMAL PHALANX RIGHT HALLU) Procedures: HE/2, Gross/Micro L5, Decalcification ---- Patient: Matty Garces [id number] (Continued) ---- Specimen: [id number] Received: 01/03/24 (Continued) CPT Codes 02796 ---- ---- Specimen: [id number] Received: 01/03/24 Status: GIOVANNI Prince Num: [id number] Spec Type: Surgical Subm Dr: Trey Vallejo,DPKeri, MS Tissues: A Bone Fragments - Pathologic Fracture (PROXIMAL PHALANX RIGHT HALLU) Procedures: HE/2, Gross/Micro L5, Decalcification ---- Patient: Matty Garces [id number] (Continued) ---- Signed (signature on file) Viral Rae MD 01/06/24 9088 Normal [facility] CT MORGAN WO PHYLLISon 3 CT MORGAN WO CON EXAM: CT CSPINE WO C [...] ANGEL SAID Date: 2022-12-06 06:37 Normal [facility] CT FACIAL BONES WO CONon CT [...] ANGEL SAID Date: 2022-12-06 06:41 Normal [facility] CT HEAD WO CONon 12-06-2022 [...] Normal [facility] XR ELBOW RT MIN 3 VIEWSon XR ELBOW RT MIN 3 VIEWS Exam: Radiographs: XR ELBOW RT MIN 3 VIEWS Reason for exam: Elbow pain Comparison: None IMPRESSION: Right elbow degenerative changes. Olecranon spur. Remainder of the right elbow is unremarkable. Electronically authenticated by: MICHAEL CASANOVA Date: 2022-12-06 07:22 Normal [facility] XR FOREARM RT 2Von 3 XR FOREARM RT 2V Exam: Radiographs: X R FOREARM RT 2V Reason for exam: Forearm pain Comparison: None IMPRESSION: Mild degenerative changes in the right elbow and wrist. Right forearm is otherwise unremarkable. Electronically authenticated by: MICHAEL CASANOVA Date: 2022-12-06 08:07 Normal [facility] PSA, FREE AND TOTAL RATIOon 12-03-2022 % Free PSA 9.0 % Normal [facility] Comment on [...] SAFREE #### [facility] [address] [address] [address] Shabnam Rae Prostate specific Ag [Mass/Vol] 5.9 ng/mL Critically high 0.0-4.0 [facility] Comment on above: Result Comment: Tanja BRANTLEY methodology. . According to the [employer], Serum PSA should decrease and [...] SAFREE #### [facility] [address] [place] [address] Dr. Shabnam Rae PSA, Free 0.53 ng/mL Normal N/A [facility] Comment on above: Result Comment: Tanja ayala ECLIA methodology. Performed By: #### P SAFREE #### [facility] [address] [place] [address] Dr. Shabnam Rae INSULINon 12-02-2022 Insulin 20.2 uIU/mL Normal 2.6-24.9 [facility] Comment on above: Performed By: #### P SASC #### [facility] [address] [place] [address] Dr. Shabnam Rae TESTOSTERONE, TOTALon 2022 Testosterone [Mass/Vol] 256 ng/dL Critically low 264-916 [facility] Comment on above: Result Comment: Adul t male reference interval is based on a population of healthy nonobese males (BMI <30) between 19 and 39 years old. Dima, et.al. JCEM 2017,102;5693-2432. PMID: [id number]. Performed By: #### P SASC #### [facility] [address] [place] [address] Dr. Shabnam Rae CBC AUTO DIFFon 12-01-2022 BASO # 0.1 103/ul Normal 0.0-0.1 [facility] Comment on above: Performed By: #### P SASC #### [facility] [address] [place] [address] Dr. Shabnam Rae Basophils/100 WBC (Bld) 1.0 % Normal 0.2-2.0 [facility] Comment on above: Performed By: #### P SASC #### [facility] [address] [place] [address] Dr. Shabnam Rae EO # 0.1 103/ul Normal 0.0-0.7 [facility] Comment on above: Performed By: #### P SASC #### [facility] [address] [address] [address] Shabnam Rae Eosinophils/100 WBC (Bld) 1.8 % Normal 0.9-7.0 [facility] Comment on above: Performed By: #### P SASC #### [facility] [address] [place] [address] [address] Shabnam Rae Erythrocyte distribution width (RBC) [Ratio] 14.8 % Normal 11.0-15.0 [facility] Comment on above: Performed By: #### P SASC #### [facility] [address] [place] [address] [address] Shabnam Rae Hematocrit (Bld) [Volume fraction] 49.9 % Normal 42.0-54.0 [facility] Comment on above: Performed By: #### P SASC #### [facility] [address] [place] [address] Dr. Shabnam Rae Hemoglobin (Bld) [Mass/Vol] 16.0 g/dL Normal 14.0-18.0 [facility] Comment on above: Performed By: #### P SASC #### [facility] [address] [place] [address] Dr. Shabnam Rae IG # 0.04 10e3/ul Critically high 0.00-0.03 [facility] Comment on above: Performed By: #### P SASC #### [facility] [address] [address] [address] Shabnam Rae IG % 0.6 % Critically high 0.0-0.5 [facility] Comment on above: Performed By: #### P SASC #### [facility] [address] [place] [address] Dr. Shabnam Rae LYMPH # 1.0 103/ul Critically low 1.2-3.8 [facility] Comment on above: Performed By: #### P SASC #### [facility] [address] [place] [address] Dr. Shabnam Rae Lymphocytes/100 WBC (Bld) 16.2 % Critically low 20.5-60.0 [facility] Comment on above: Performed By: #### P SASC #### [facility] [address] [place] [address] Dr. Shabnam Rae MANUAL DIFF REQ NO Normal [facility] Comment on above: Performed By: #### P SASC #### [facility] [address] [place] [address] Dr. Shabnam Rae MCH (RBC) [Entitic mass] 27.7 pg Normal 25.9-34.0 [facility] Comment on above: Performed By: #### P SASC #### [facility] [address] [place] [address] Dr. Shabnam Rae MCHC (RBC) [Mass/Vol] 32.1 g/dL Normal 29.9-35.2 [facility] Comment on above: Performed By: #### P SASC #### [facility] [address] [place] [address] Dr. Shabnam Rae MCV (RBC) [Entitic vol] 86.3 fL Normal 80.0-94.0 [facility] Comment on above: Performed By: #### P SASC #### [facility] [address] [place] [address] Dr. Shabnam Rae MONO # 0.5 103/ul Normal 0.3-0.8 [facility] Comment on above: Performed By: #### P SASC #### [facility] [address] [place] [address] Dr. Shabnam Rae Monocytes/100 WBC (Bld) 7.6 % Normal 1.7-12.0 [facility] Comment on above: Performed By: #### P SASC #### [facility] [address] [place] [address] Dr. Shabnam Rae NEUT # 4.6 103/ul Normal 1.4-6.5 [facility] Comment on above: Performed By: #### P SASC #### [facility] [address] [place] [address] Dr. Shabnam Rae Neutrophils/100 WBC (Bld) 72.8 % Normal 43.0-75.0 [facility] Comment on above: Performed By: #### P SASC #### [facility] [address] [address] [address] Shabnam Rae Platelet mean volume (Bld) [Entitic vol] 9.8 fL Normal 9.5-13.5 [facility] Comment on above: Performed By: #### P SASC #### [facility] [address] [address] [address] Shabnam Rae PLT 203 103/ul Normal 150-450 [facility] Comment on above: Performed By: #### P SASC #### [facility] [address] [address] [address] Shabnam Rae RBC 5.78 106/ul Normal 4.70-6.10 [facility] Comment on above: Performed By: #### P SASC #### [facility] [address] [address] [address] Shabnam Rae WBC 6.3 103/ul Normal 4.0-11.0 [facility] Comment on above: Performed By: #### P SASC #### [facility] [address] [address] [address] Shabnam Rae FREE THYROXINE INDEX T7on FTI 2.05 Normal 1.30-4.50 [facility] Comment on above: Performed By: #### T SH, CMP, LIPID, T7, URIC #### [facility] [address] [address] [address] Shabnam Rae T3U 33.0 % Normal 33.0-40.0 [facility] Comment on above: Performed By: #### T SH, CMP, LIPID, T7, URIC #### [facility] [address] [address] [address] Shabnam Rae T4 [Mass/Vol] 6.20 ug/dL Normal 4.50-12.10 [facility] Comment on above: Performed By: #### T SH, CMP, LIPID, T7, URIC #### [facility] [address] [address] [address] Shabnam Rae GLYCOHEMOGLOBIN A1Con 2022 ADA RECOMMENDATION SEE BELOW Normal [facility] Comment on above: Result Comment: ADA RECOMMENDED LIMIT 4.0 - 6.0 ADA THERAPEUTIC TARGET < 7.0 ACTION SUGGESTED > 7.0 Performed By: #### P SASC #### [facility] [address] [address] [address] Shabnam Rae Glucose [Mass/Vol] 114 mg/dL Normal [facility] Comment on above: Performed By: #### P SASC #### [facility] [address] [address] [address] Shabnam Rae HbA1c (Bld) [Mass fraction] 5.6 % Normal 4.5-6.2 [facility] Comment on above: Performed By: #### P SASC #### [facility] [address] [place] [address] Dr. Shabnam Rae LIPID PROFILEon 12-01-2022 CHOL-HDL RATIO NORM SEE BELOW Normal [facility] Comment on above: Result Comment: 3.3 - 4.4 LOW RISK 4.4 - 7.1 AVERAGE RISK 7.1 - 11.0 MODERATE RISK >11.0 HIGH RISK Performed By: #### T SH, CMP, LIPID, T7, URIC #### [facility] [address] [address] [address] Shabnam Rae Cholesterol [Mass/Vol] 176 mg/dL Normal <=200 [facility] Comment on above: Performed By: #### T SH, CMP, LIPID, T7, URIC #### [facility] [address] [address] [address] Shabnam Rae Cholesterol in HDL [Mass/Vol] 48 mg/dL Normal 40-60 [facility] Comment on above: Performed By: #### T SH, CMP, LIPID, T7, URIC #### [facility] [address] [address] [address] Shabnam Rae Cholesterol in LDL [Mass/Vol] 108.2 mg/dL Normal [facility] Comment on above: Performed By: #### T SH, CMP, LIPID, T7, URIC #### [facility] [address] [address] [address] Shabnam Rae Cholesterol.total/Ch olesterol in HDL [Mass ratio] 3.7 {ratio} Normal [facility] Comment on above: Performed By: #### T SH, CMP, LIPID, T7, URIC #### [facility] [address] [address] [address] Shabnam Rae HDL NORMAL > or = 60 mg/dl - LO W CARDIOVASCULAR RISK <40 mg/dl - HIGH CARDIOVASCULAR RISK Normal [facility] Comment on above: Performed By: #### T SH, CMP, LIPID, T7, URIC #### [facility] [address] [address] [address] hSabnam Rae LDL CALC NORMAL SEE BELOW Normal [facility] Comment on above: Result Comment: <100 mg/dl OPTIMAL 100 - 129 mg/dl NEAR OR ABOVE OPTIMAL 130 - 159 mg/dl BORDERLINE HIGH 160 - 189 mg/dl HIGH >190 mg/dl VERY HIGH Performed By: #### T SH, CMP, LIPID, T7, URIC #### [facility] [address] [address] [address] Shabnam Rae Triglyceride [Mass/Vol] 99 mg/dL Normal <=150 [facility] Comment on above: Performed By: #### T SH, CMP, LIPID, T7, URIC #### [facility] [address] [place] [address] Dr. Shabnam Rae VLDL CALC 19.8 mg/dL Normal [facility] Comment on above: Performed By: #### T SH, CMP, LIPID, T7, URIC #### [facility] [address] [place] [address] Dr. Shabnam Rae PROF 14(COMP METB)on 023 Albumin [Mass/Vol] 4.1 g/dL Normal 3.4-5.0 [facility] Comment on above: Performed By: #### T SH, CMP, LIPID, T7, URIC #### [facility] [address] [place] [address] Dr. Shabnam Rae Albumin/Globulin [Mass ratio] 1.1 {ratio} Normal [facility] Comment on above: Performed By: #### T SH, CMP, LIPID, T7, URIC #### [facility] [address] [address] [address] Shabnam Rae ALP [Catalytic activity/Vol] 101 U/L Normal 46-116 [facility] Comment on above: Performed By: #### T SH, CMP, LIPID, T7, URIC #### [facility] [address] [address] [address] Shabnam Rae ALT [Catalytic activity/Vol] 26 U/L Normal 16-63 [facility] Comment on above: Performed By: #### T SH, CMP, LIPID, T7, URIC #### [facility] [address] [address] [address] Shabnam Rae Anion gap [Moles/Vol] 10.1 mmol/L Normal [facility] Comment on above: Performed By: #### T SH, CMP, LIPID, T7, URIC #### [facility] [address] [address] [address] Shabnam Rae AST [Catalytic activity/Vol] 19 U/L Normal 15-37 [facility] Comment on above: Performed By: #### T SH, CMP, LIPID, T7, URIC #### [facility] [address] [address] [address] Shabnam Rae Bilirubin [Mass/Vol] 0.8 mg/dL Normal 0.2-1.0 [facility] Comment on above: Performed By: #### T SH, CMP, LIPID, T7, URIC #### [facility] [address] [address] [address] Shabnam Rae Calcium [Mass/Vol] 9.5 mg/dL Normal 8.5-10.1 [facility] Comment on above: Performed By: #### T SH, CMP, LIPID, T7, URIC #### [facility] [address] [address] [address] Shabnam Rae Chloride [Moles/Vol] 102 mmol/L Normal 98-107 [facility] Comment on above: Performed By: #### T SH, CMP, LIPID, T7, URIC #### [facility] [address] [address] [address] Shabnam Rae CO2 [Moles/Vol] 32.4 mmol/L Critically high 21.0-32.0 [facility] Comment on above: Performed By: #### T SH, CMP, LIPID, T7, URIC #### [facility] [address] [place] [address] Dr. Shabnam Rae Creatinine [Mass/Vol] 1.00 mg/dL Normal 0.70-1.30 [facility] Comment on above: Performed By: #### T SH, CMP, LIPID, T7, URIC #### [facility] [address] [place] [address] Dr. Shabnam Rae EGFR-AF TAIWANESE >60 Normal >=[address] [facility] Comment on above: Performed By: #### T SH, CMP, LIPID, T7, URIC #### [facility] [address] [place] [address] Dr. Shabnam Rae EGFR-NON AF TAIWANESE >60 Normal >=60 [facility] Comment on above: Performed By: #### T SH, CMP, LIPID, T7, URIC #### [facility] [address] [place] [address] Dr. Shabnam Rae Globulin (S) [Mass/Vol] 3.8 g/dL Normal [facility] Comment on above: Performed By: #### T SH, CMP, LIPID, T7, URIC #### [facility] [address] [place] [address] Dr. Shabnam Rae Glucose [Mass/Vol] 94 mg/dL Normal 74-106 [facility] Comment on above: Performed By: #### T SH, CMP, LIPID, T7, URIC #### [facility] [address] [place] [address] Dr. Shabnam Rae Potassium [Moles/Vol] 3.5 mmol/L Normal 3.5-5.1 [facility] Comment on above: Performed By: #### T SH, CMP, LIPID, T7, URIC #### [facility] [address] [place] [address] Dr. Shabnam Rae Protein [Mass/Vol] 7.9 g/dL Normal 6.4-8.2 [facility] Comment on above: Performed By: #### T SH, CMP, LIPID, T7, URIC #### [facility] [address] [address] [address] Shabnam Rae Sodium [Moles/Vol] 141 mmol/L Normal 136-145 [facility] Comment on above: Performed By: #### T SH, CMP, LIPID, T7, URIC #### [facility] [address] [address] [address] Shabnam Rae Urea nitrogen [Mass/Vol] 15.0 mg/dL Normal 7.0-18.0 [facility] Comment on above: Performed By: #### T SH, CMP, LIPID, T7, URIC #### [facility] [address] [address] [address] Shabnam Rae Urea nitrogen/Creatinine [Mass ratio] 15.0 mg/mg Normal [facility] Comment on above: Performed By: #### T SH, CMP, LIPID, T7, URIC #### [facility] [address] [address] [address] Shabnam Rae TSHon 12-01-2022 TSH 1.504 uIU/mL Normal 0.358-3.740 [facility] Comment on above: Performed By: #### T SH, CMP, LIPID, T7, URIC #### [facility] [address] [address] [address] Shabnam Rae URIC ACID SERUMon 12-01-2022 Urate [Mass/Vol] 6.9 mg/dL Normal 3.5-7.2 [facility] Comment on above: Performed By: #### T SH, CMP, LIPID, T7, URIC #### [facility] [address] [place] [address] Dr. Shabnam Rae TESTOSTERONE, TOTALon 2021 Testosterone [Mass/Vol] 244 ng/dL Critically low 264-916 [facility] Comment on above: Result Comment: Adul t male reference interval is based on a population of healthy nonobese males (BMI <30) between 19 and 39 years old. Dima et.al. JCEM 2017,102;5089-6899. PMID: [id number]. Performed By: #### P SAFREE #### [facility] [address] [place], [place] [address] Dr. Shabnam Rae TESTOSTERONE, FREE,DIRECT, T OTALon 03-16-2022 Free Testosterone(Direct) 2.1 pg/mL Critically low 7.2-24.0 [facility] Comment on above: Result Comment: Perf ormed at: BN Performed By: #### C VDTBH #### [facility] [id number] Shabnam Rae Testosterone [Mass/Vol] 252 ng/dL Critically low 264-916 [facility] Comment on above: Result Comment: Adul t male reference interval is based on a population of healthy nonobese males (BMI <30) between 19 and 39 years old. adia Ch.al. JCEM 2017,102;4889-7978. PMID: [id number]. Performed at: CB Performed By: #### C VDTBH #### [facility] [address] [address] [address] Shabnam Rae Formson 02-26-2022 Forms [id number]. 00CD:127 Normal [facility] Screenson 02-26-2022 Screens [id number]#1. 00CD:127 Normal [facility] Screens [id number]#1.0 0CD:127 Normal [facility] Urology Office/Clinic Noteon 02-26-2022 Urology Office/Clinic [...] qualifying data (more content not included)... Normal [facility] Comment on above: Result Comment: Elec tronically Signed By: Viola Grullon MD\.br\Date and Time Signed: 02/26/22 00:20 EDT\.br\Electronically Co-Signed By: Helen Leung\.br\Date and Time Co-Signed: 02/25/22 11:16 EDT Ambulatory Visit Summaryon 0 02-25-2022 Ambulatory Visit Summary MATTY GARCES :1970 Visit Date:02/25/2022 Ambulatory Visit Instructions Your Diagnosis Hydrocele Varicocele BPH without urinary obstruction Tests Performed Urnls Dip Stick Auto w/o Microscopy POC 94096 Your Care Team Attending Physician - Viola [...] Urnls Dip Stick Auto w/o Microscopy POC 14178 (02/25/2022) Bilirubin Urine Dipstick - Negative Blood Urine Dipstick - Negative Glucose Urine Dipstick - Negative Ketones Urine Dipstick - Negative Leukocytes Urine Dipstick - Negative Nitrite Urine Dipstick - Negative Protein Urine Dipstick - Negative Specific [place] Urine Dipstick - >=1.030 Urine Appearance Urine [...] the hydrocele for any changes. ? Take xnda-mkw-yxihmuh and prescription medicines only as told by [...] intended t (more content not included)... Normal [facility] Patient Educationon 02-26-20 Patient Education Urology [...] the hydrocele for any changes. ? Take afpo-kth-nhwfrji and prescription medicines only as told by [...] 02/17/2011 Document Revised: 09/10/2018 Document Reviewed: 09/10/2018 [employer] Patient Education ? 2019 [employer] Normal [facility] ED Note-Physicianon 02-04-20 ED Note-Physician [id number] .00CD:127 [facility] RAD - Ultrasound Reporton RAD - Ultrasound Report [id number] 0CD:127 [facility] RAD - CT Reporton 02-02-2022 RAD - CT Report [id number] .00CD:127 Normal [facility] RAD - CT Report [id number] .00CD:127 Normal [facility] CBC AUTO DIFFon 01-05-2022 BASO # 0.0 103/ul Normal 0.0-0.1 [facility] Comment on above: Performed By: #### P SAFREE #### [facility] [address] [address] [address] Shabnam Rae Basophils/100 WBC (Bld) 0.6 % Normal 0.2-2.0 [facility] Comment on above: Performed By: #### P SAFREE #### [facility] [address] [address] [address] Shabnam Rae EO # 0.1 103/ul Normal 0.0-0.7 [facility] Comment on above: Performed By: #### P SAFREE #### [facility] [address] [address] [address] Shabnam Rae Eosinophils/100 WBC (Bld) 2.1 % Normal 0.9-7.0 [facility] Comment on above: Performed By: #### P SAFREE #### [facility] [address] [address] [address] Shabnam Rae Erythrocyte distribution width (RBC) [Ratio] 13.1 % Normal 11.0-15.0 [facility] Comment on above: Performed By: #### P SAFREE #### [facility] [address] [address] [address] Shabnam Rae Hematocrit (Bld) [Volume fraction] 43.1 % Normal 42.0-54.0 [facility] Comment on above: Performed By: #### P SAFREE #### [facility] [address] [place] [address] Dr. Shabnam Rae Hemoglobin (Bld) [Mass/Vol] 13.7 g/dL Critically low 14.0-18.0 [facility] Comment on above: Performed By: #### P SAFREE #### [facility] [address] [place] [address] Dr. Shabnam Rae IG # 0.04 10e3/ul Critically high 0.00-0.03 [facility] Comment on above: Performed By: #### P SAFREE #### [facility] [address] [place] [address] Dr. Shabnam Rae IG % 0.6 % Critically high 0.0-0.5 [facility] Comment on above: Performed By: #### P SAFREE #### [facility] [address] [address] [address] Shabnam Rae LYMPH # 0.9 103/ul Critically low 1.2-3.8 [facility] Comment on above: Performed By: #### P SAFREE #### [facility] [address] [address] [address] Shabnam Rae Lymphocytes/100 WBC (Bld) 13.1 % Critically low 20.5-60.0 [facility] Comment on above: Performed By: #### P SAFREE #### [facility] [address] [place] [address] Dr. Shabnam Rae MANUAL DIFF REQ NO Normal [facility] Comment on above: Performed By: #### P SAFREE #### [facility] [address] [address] [address] Shabnam Rae MCH (RBC) [Entitic mass] 29.5 pg Normal 25.9-34.0 [facility] Comment on above: Performed By: #### P SAFREE #### [facility] [address] [place] [address] Dr. Shabnam Rae MCHC (RBC) [Mass/Vol] 31.8 g/dL Normal 29.9-35.2 [facility] Comment on above: Performed By: #### P SAFREE #### [facility] [address] [place] [address] Dr. Shabnam Rae MCV (RBC) [Entitic vol] 92.9 fL Normal 80.0-94.0 [facility] Comment on above: Performed By: #### P SAFREE #### [facility] [address] [place] [address] Dr. Shabnam Rae MONO # 0.4 103/ul Normal 0.3-0.8 [facility] Comment on above: Performed By: #### P SAFREE #### [facility] [address] [place] [address] Dr. Shabnam Rae Monocytes/100 WBC (Bld) 5.4 % Normal 1.7-12.0 [facility] Comment on above: Performed By: #### P SAFREE #### [facility] [address] [place] [address] Dr. Shabnam Rae NEUT # 5.2 103/ul Normal 1.4-6.5 [facility] Comment on above: Performed By: #### P SAFREE #### [facility] [address] [place] [address] Dr. Shabnam Rae Neutrophils/100 WBC (Bld) 78.2 % Critically high 43.0-75.0 [facility] Comment on above: Performed By: #### P SAFREE #### [facility] [address] [place] [address] Dr. Shabnam Rae Platelet mean volume (Bld) [Entitic vol] 10.9 fL Normal 9.5-13.5 [facility] Comment on above: Performed By: #### P SAFREE #### [facility] [address] [place] [address] Dr. Shabnam Rae PLT 153 103/ul Normal 150-450 [facility] Comment on above: Performed By: #### P SAFREE #### [facility] [address] [address] [address] Shabnam Rae RBC 4.64 106/ul Critically low 4.70-6.10 [facility] Comment on above: Performed By: #### P SAFREE #### [facility] [address] [address] [address] Shabnam Rae WBC 6.6 103/ul Normal 4.0-11.0 [facility] Comment on above: Performed By: #### P SAFREE #### [facility] [address] [place] [address] Dr. Shabnam Rae CRPon 01-05-2022 CRP 0.9 mg/dL Normal <=1.0 [facility] Comment on above: Performed By: #### P SAFREE #### [facility] [address] [place] [address] Dr. Shabnam Rae PROF 14(COMP METB)on 022 Albumin [Mass/Vol] 3.6 g/dL Normal 3.4-5.0 [facility] Comment on above: Performed By: #### P SAFREE #### [facility] [address] [place] [address] Dr. Shabnam Rae Albumin/Globulin [Mass ratio] 1.0 {ratio} Normal [facility] Comment on above: Performed By: #### P SAFREE #### [facility] [address] [place] [address] Dr. Shabnam Rae ALP [Catalytic activity/Vol] 114 U/L Normal 46-116 [facility] Comment on above: Performed By: #### P SAFREE #### [facility] [address] [place] [address] Dr. Shabnam Rae ALT [Catalytic activity/Vol] 26 U/L Normal 16-63 [facility] Comment on above: Performed By: #### P SAFREE #### [facility] [address] [address] [address] Shabnam Rae Anion gap [Moles/Vol] 9.3 mmol/L Normal [facility] Comment on above: Performed By: #### P SAFREE #### [facility] [address] [address] [address] Shabnam Rae AST [Catalytic activity/Vol] 19 U/L Normal 15-37 [facility] Comment on above: Performed By: #### P SAFREE #### [facility] [address] [address] [address] Shabnam Rae Bilirubin [Mass/Vol] 0.5 mg/dL Normal 0.2-1.0 [facility] Comment on above: Performed By: #### P SAFREE #### [facility] [address] [address] [address] Shabnam Rae Calcium [Mass/Vol] 8.9 mg/dL Normal 8.5-10.1 [facility] Comment on above: Performed By: #### P SAFREE #### [facility] [address] [address] [address] Shabnam Rae Chloride [Moles/Vol] 106 mmol/L Normal 98-107 [facility] Comment on above: Performed By: #### P SAFREE #### [facility] [address] [address] [address] Shabnam Rae CO2 [Moles/Vol] 30.7 mmol/L Normal 21.0-32.0 [facility] Comment on above: Performed By: #### P SAFREE #### [facility] [address] [address] [address] Shabnam Rae Creatinine [Mass/Vol] 1.15 mg/dL Normal 0.70-1.30 [facility] Comment on above: Performed By: #### P SAFREE #### [facility] [address] [address] [address] Shabnam Rae EGFR-AF TAIWANESE >60 Normal >=60 [facility] Comment on above: Performed By: #### P SAFREE #### [facility] [address] [address] [address] Shabnam Rae EGFR-NON AF TAIWANESE >60 Normal >=60 [facility] Comment on above: Performed By: #### P SAFREE #### [facility] [address] [address] [address] Shabnam Rae Globulin (S) [Mass/Vol] 3.6 g/dL Normal [facility] Comment on above: Performed By: #### P SAFREE #### [facility] [address] [address] [address] Shabnam Rae Glucose [Mass/Vol] 117 mg/dL Critically high 74-106 [facility] Comment on above: Performed By: #### P SAFREE #### [facility] [address] [address] [address] Shabnam Rae Potassium [Moles/Vol] 4.0 mmol/L Normal 3.5-5.1 [facility] Comment on above: Performed By: #### P SAFREE #### [facility] [address] [address] [address] Shabnam Rae Protein [Mass/Vol] 7.2 g/dL Normal 6.1-8.2 [facility] Comment on above: Performed By: #### P SAFREE #### [facility] [address] [place] [address] Dr. Shabnam Rae Sodium [Moles/Vol] 142 mmol/L Normal 136-145 [facility] Comment on above: Performed By: #### P SAFREE #### [facility] [facility] [address] [address] [address] Shabnam Rae Urea nitrogen [Mass/Vol] 15.0 mg/dL Normal 7.0-18.0 [facility] Comment on above: Performed By: #### P SAFREE #### [facility] [address] [address] [address] Shabnam aRe Urea nitrogen/Creatinine [Mass ratio] 13.0 mg/mg Normal [facility] Comment on above: Performed By: #### P SAFREE #### [facility] [address] [address] [address] Shabnam Rae US SCROTUMon 01-05-2022 US [...] Normal [facility] CBC AUTO DIFFon 01-04-2022 BASO # 0.1 103/ul Normal 0.0-0.1 [facility] Comment on above: Performed By: #### C BC #### [facility] [address] [place] [address] Dr. Shabnam Rae Basophils/100 WBC (Bld) 0.8 % Normal 0.2-2.0 [facility] Comment on above: Performed By: #### C BC #### [facility] [address] [place] [address] Dr. Shabnam Rae EO # 0.1 103/ul Normal 0.0-0.7 [facility] Comment on above: Performed By: #### C BC #### [facility] [address] [place] [address] Dr. Shabnam Rae Eosinophils/100 WBC (Bld) 1.5 % Normal 0.9-7.0 [facility] Comment on above: Performed By: #### C BC #### [facility] [address] [place] [address] Dr. Shabnam Rae Erythrocyte distribution width (RBC) [Ratio] 12.8 % Normal 11.0-15.0 [facility] Comment on above: Performed By: #### C BC #### [facility] [address] [place] [address] Dr. Shabnam Rae Hematocrit (Bld) [Volume fraction] 40.3 % Critically low 42.0-54.0 [facility] Comment on above: Performed By: #### C BC #### [facility] [address] [place] [address] Dr. Shabnam Rae Hemoglobin (Bld) [Mass/Vol] 13.4 g/dL Critically low 14.0-18.0 [facility] Comment on above: Performed By: #### C BC #### [facility] [address] [place] [address] Dr. Shabnam Rae IG # 0.03 10e3/ul Normal 0.00-0.03 [facility] Comment on above: Performed By: #### C BC #### [facility] [address] [place] [address] Dr. Shabnam Rae IG % 0.5 % Normal 0.0-0.5 [facility] Comment on above: Performed By: #### C BC #### [facility] [address] [place] [address] Dr. Shabnam Rae LYMPH # 1.0 103/ul Critically low 1.2-3.8 [facility] Comment on above: Performed By: #### C BC #### [facility] [address] [place] [address] Dr. Shabnam Rae Lymphocytes/100 WBC (Bld) 16.4 % Critically low 20.5-60.0 [facility] Comment on above: Performed By: #### C BC #### [facility] [address] [place] [address] Dr. Shabnam Rae MANUAL DIFF REQ NO Normal [facility] Comment on above: Performed By: #### C BC #### [facility] [address] [place] [address] Dr. Shabnam Rae MCH (RBC) [Entitic mass] 29.5 pg Normal 25.9-34.0 [facility] Comment on above: Performed By: #### C BC #### [facility] [address] [place] [address] Dr. Shabnam Rae MCHC (RBC) [Mass/Vol] 33.3 g/dL Normal 29.9-35.2 [facility] Comment on above: Performed By: #### C BC #### [facility] [address] [place] [address] Dr. Shabnam Rae MCV (RBC) [Entitic vol] 88.8 fL Normal 80.0-94.0 [facility] Comment on above: Performed By: #### C BC #### [facility] [address] [place] [address] Dr. Shabnam Rae MONO # 0.6 103/ul Normal 0.3-0.8 [facility] Comment on above: Performed By: #### C BC #### [facility] [address] [place] [address] Dr. Shabnam Rae Monocytes/100 WBC (Bld) 9.6 % Normal 1.7-12.0 [facility] Comment on above: Performed By: #### C BC #### [facility] [address] [place] [address] Dr. Shabnam Rae NEUT # 4.4 103/ul Normal 1.4-6.5 [facility] Comment on above: Performed By: #### C BC #### [facility] [address] [place] [address] Dr. Shabnam Rae Neutrophils/100 WBC (Bld) 71.2 % Normal 43.0-75.0 [facility] Comment on above: Performed By: #### C BC #### [facility] [address] [place], [place] [address] Dr. Shabnam Rae Platelet mean volume (Bld) [Entitic vol] 10.8 fL Normal 9.5-13.5 [facility] Comment on above: Performed By: #### C BC #### [facility] [address] [place] [address] [address] Shabnam Rae PLT 158 103/ul Normal 150-450 [facility] Comment on above: Performed By: #### C BC #### [facility] [address] [place], [place] [address] Dr. Shabnam Rae RBC 4.54 106/ul Critically low 4.70-6.10 [facility] Comment on above: Performed By: #### C BC #### [facility] [address] [place], [place] [id number] Dr. Shabnam Rae WBC 6.2 103/ul Normal 4.0-11.0 [facility] Comment on above: Performed By: #### C BC #### [facility] [address] [place] [address] ABD/PELV W CONon [...] Normal [facility] CT PELVIS WO CONon 2 [...] MANUEL HOUGH Date: 2022-01-04 08:54 Normal [facility] CULTURE URINEon 01-04-2022 CULTURE URINE Culture Observations : No growth Normal [facility] Comment on above: Performed By: #### P SASC #### [facility] [address] [address] [address] Shabnam Rae Covid-19 PCR ([facility])on 12-13 SARS-CoV-2 (COVID-19) RNA ELIJAH+probe Ql (Unsp spec) Not detected Normal NOT DETECTED [facility] Comment on [...] Administration (FDA). This test was developed by [employer], [place], [place]. The performance characteristics of this test were validated by [facility]. The results are not intended to be used as the sole means for clinical diagnosis or patient management decisions. [facility] is authorized under Clinical Laboratory [...] for this test is supported by the [place] of Health and Human Service's declaration that [...] used). Performed By: #### C VDTBH #### [facility] [address] [address] [address] Shabnam HUERTAS URINE PROFILEon 2 Bilirubin Ql (U) Negative Normal NEGATIVE [facility] Comment on above: Performed By: #### P SASC #### [facility] [address] [address] [address] Shabnam Rae Clarity (U) CLEAR Normal CLEAR [facility] Comment on above: Performed By: #### P SASC #### [facility] [address] [address] [address] Shabnam Rae Color (U) YELLOW Normal YELLOW [facility] Comment on above: Performed By: #### P SASC #### [facility] [address] [address] [address] Shabnam HERNANDEZ A micrscopic examination will be performed if indicated. Normal [facility] Comment on above: Performed By: #### P SASC #### [facility] [address] [address] [address] Shabnam Rae Glucose Ql (U) Negative Normal NEGATIVE [facility] Comment on above: Performed By: #### P SASC #### [facility] [address] [address] [address] Shabnam Rae Hemoglobin Ql (U) Negative Normal NEGATIVE [facility] Comment on above: Performed By: #### P SASC #### [facility] [address] [address] [address] Shabnam Rae Ketones Ql (U) Negative Normal NEGATIVE [facility] Comment on above: Performed By: #### P SASC #### [facility] [address] [address] [address] Shabnam Rae LEUKOCYTES Negative Normal NEGATIVE [facility] Comment on above: Performed By: #### P SASC #### [facility] [address] [address] [address] Shabnam Rae Nitrite Ql (U) Negative Normal NEGATIVE [facility] Comment on above: Performed By: #### P SASC #### [facility] [address] [address] [address] Shabnam Rae pH (U) 6.5 [pH] Normal 5-9 [facility] Comment on above: Performed By: #### P SASC #### [facility] [address] [place] [address] Dr. Shabnam Rae SPEC GRAVITY 1.010 Normal 1.005-<=1.025 [facility] Comment on above: Performed By: #### P SASC #### [facility] [address] [place] [address] Dr. Shabnam Rae UA PROTEIN Negative Normal NEGATIVE/ TRACE [facility] Comment on above: Performed By: #### P SASC #### [facility] [address] [place] [address] Dr. Shabnam Rae UR MICRO IND NOT INDICATED Normal [facility] Comment on above: Performed By: #### P SASC #### [facility] [address] [place] [address] Dr. Shabnam Rae Urobilinogen Qn (U) 0.2 {Sarai'U}/dL Normal 0.2 - 1. 0 [facility] Comment on above: Performed By: #### P SASC #### [facility] [address] [place] [address] Dr. Shabnam Rae LACTATE/LACTIC ACIDon 2021 Lactate [Moles/Vol] 1.0 mmol/L Normal 0.4-2.0 [facility] Comment on above: Performed By: #### P SASC #### [facility] [address] [place] [address] Dr. Shabnam Rae PROF CHEM 8 (BAS METB)on Anion gap [Moles/Vol] 10.0 mmol/L Normal [facility] Comment on above: Performed By: #### B MP #### [facility] [address] [place] [address] Dr. Shabnam Rae Calcium [Mass/Vol] 8.5 mg/dL Normal 8.5-10.1 [facility] Comment on above: Performed By: #### B MP #### [facility] [address] [place], [place] [id number] Dr. Shabnam Rae Chloride [Moles/Vol] 103 mmol/L Normal 98-107 [facility] Comment on above: Performed By: #### B MP #### [facility] [address] [address] [address] Shabnam Rae CO2 [Moles/Vol] 29.2 mmol/L Normal 21.0-32.0 [facility] Comment on above: Performed By: #### B MP #### [facility] [address] [address] [address] Shabnam Rae Creatinine [Mass/Vol] 1.25 mg/dL Normal 0.70-1.30 [facility] Comment on above: Performed By: #### B MP #### [facility] [address] [place] [address] Dr. Shabnam Rae EGFR-AF TAIWANESE >60 Normal >=60 [facility] Comment on above: Performed By: #### B MP #### [facility] [address] [place] [address] Dr. Shabnam Rae EGFR-NON AF TAIWANESE >60 Normal >=60 [facility] Comment on above: Performed By: #### B MP #### [facility] [address] [place] [address] Dr. Shabnam Rae Glucose [Mass/Vol] 132 mg/dL Critically high 74-106 [facility] Comment on above: Performed By: #### B MP #### [facility] [address] [place] [address] Dr. Shabnam Rae Potassium [Moles/Vol] 3.2 mmol/L Critically low 3.5-5.1 [facility] Comment on above: Performed By: #### B MP #### [facility] [address] [address] [address] Shabnam Rae Sodium [Moles/Vol] 139 mmol/L Normal 136-145 [facility] Comment on above: Performed By: #### B MP #### [facility] [address] [address] [address] Shabnam Rae Urea nitrogen [Mass/Vol] 19.0 mg/dL Critically high 7.0-18.0 [facility] Comment on above: Performed By: #### B MP #### [facility] [address] [address] [address] Shabnam Rae Urea nitrogen/Creatinine [Mass ratio] 15.2 mg/mg Normal [facility] Comment on above: Performed By: #### B MP #### [facility] [address] [address] [address] Shabnam Rae CERVICAL SPINE 2 OR 3 VWSon 07-06-2019 CERVICAL SPINE 2 OR 3 VWS [facility] Department of Radiology [address] [place] [address] ======== Patient Name: MATTY GARCES [...] findings. Electronically signed by:Bernice Hoyt. Transcribed by: [email or web address], User Resident: RADHA CHIN Electronically Signed by: BERNICE HOYT @ 07/06/2019 08:52 PM I personally read this/these film(s) with this resident Normal [facility] Comment on above: Order Comment: , STA T READ , STAT READ , , , Ordering Provider - LUCIANO DAVIS MD , CERVICAL SPINE 2 OR 3 [facility] 04-06-2019 CERVICAL SPINE 2 OR 3 S [facility] Department of Radiology [address] [place] [id number] ======== Patient Name: MATTY GARCES : 1970 Sex: M Age: Race: White Pt. Location: 85 Patient Status: O Ordered Date: 04/06/2019 7:10:00 [...] ======== CERVICAL SPINE 2 OR 3 VWS 04/06/2019 [...] study. Electronically signed by:Bernice Hoyt. Transcribed by: [email or web address], User Resident: Electronically Signed by: BERNICE HOYT @ 04/06/2019 04:40 PM Normal [facility] Comment on above: Order Comment: AP/LA T, ODONTOID PLEASE DO SWIMMER'S VIEW FOLLOW UP HARDWARE AND ALIGNMENT, S/P ACDF, RECENT FALLS CERVICAL SPINE 2 OR 3 Son 02-17-2019 CERVICAL SPINE 2 OR 3 S [facility] Department of Radiology [address] [place] [id number] ======== Patient Name: MATTY GARCES : [...] Exam: CERVICAL SPINE [address] [facility] ======== CERVICAL SPINE 2 OR 3 S 02/17/2019 [...] removal of C6-7 ACDF plate. Approved by:Florentino Dvual on 02/17/2019 6:24 PM EDT. I, Bella King, have reviewed the images and report and concur with these findings. Electronically signed by:Bella King. Transcribed by: [email or web address], User Resident: KENNETH DUVAL Electronically Signed by: BELLA KING @ 02/20/2019 11:53 AM I personally read this/these film(s) with this resident Normal [facility] Comment on above: Order Comment: C-SPI NE 2 OR 3 VIEW POSTOP, EVALUATION HARDWARE AN ALIGNMENT BASIC METABOLIC PANELon 05-2 Calcium [Mass/Vol] 9.2 mg/dL Normal 8.6-10.3 [facility] Comment on above: Order Comment: No: D o not add to previous draw Performed By: #### 5 0103 #### [facility] [address] [place] [address], [place] Chloride [Moles/Vol] 101 mmol/L Normal 98-107 [facility] Comment on above: Order Comment: No: D o not add to previous draw Performed By: #### 5 0103 #### [facility] [address] [place] [address], [place] CO2 [Moles/Vol] 26 mmol/L Normal 21-31 [facility] Comment on above: Order Comment: No: D o not add to previous draw Performed By: #### 5 0103 #### [facility] [address] [place] [address], [place] Creatinine [Mass/Vol] 1.02 mg/dL Normal 0.70-1.30 [facility] Comment on above: Order Comment: No: D o not add to previous draw Performed By: #### 5 0103 #### [facility] [address] [place] [address], [place] GFR/1.73 sq M predicted among blacks MDRD (S/P/Bld) [Vol rate/Area] mL/min/{1.73_m2} Normal >60 [facility] Comment on above: Order Comment: No: D o not add to previous draw Performed By: #### 5 0103 #### [facility] [address] [place] [address], [place] GFR/1.73 sq M predicted among non-blacks MDRD (S/P/Bld) [Vol rate/Area] mL/min/{1.73_m2} Normal >60 [facility] Comment on above: Order Comment: No: D o not add to previous draw Performed By: #### 5 0103 #### [facility] [address] [place] [address], [place] Glucose [Mass/Vol] 124 mg/dL High 70-100 [facility] Comment on above: Order Comment: No: D o not add to previous draw Performed By: #### 5 0103 #### [facility] [address] [place] [address], [place] Potassium [Moles/Vol] 3.9 mmol/L Normal 3.5-5.1 [facility] Comment on above: Order Comment: No: D o not add to previous draw Performed By: #### 5 0103 #### [facility] [address] [place] [address], [place] Sodium [Moles/Vol] 137 mmol/L Normal 136-145 [facility] Comment on above: Order Comment: No: D o not add to previous draw Performed By: #### 5 0103 #### [facility] [address] [place] [address], [place] Urea nitrogen [Mass/Vol] 15 mg/dL Normal 7-25 [facility] Comment on above: Order Comment: No: D o not add to previous draw Performed By: #### 5 0103 #### [facility] [address] [place] [id number], [facility] CBC COMPLETE BLOOD COUNT01-31-2019 Erythrocyte distribution width (RBC) [Ratio] 13.9 % Normal 11.5-15.0 [facility] Comment on above: Order Comment: No: D o not add to previous draw Performed By: #### 5 3 #### [facility] [address] [place] [address], [facility] Hematocrit (Bld) [Volume fraction] 50.0 % Normal 39.0-50.0 [facility] Comment on above: Order Comment: No: D o not add to previous draw Performed By: #### 5 0103 #### [facility] [address] [place] [id number], [facility] Hemoglobin (Bld) [Mass/Vol] 16.0 g/dL Normal 13.0-17.0 [facility] Comment on above: Order Comment: No: D o not add to previous draw Performed By: #### 5 3 #### [facility] [address] [place] [address], [facility] MCH (RBC) [Entitic mass] 27.5 pg Normal 27.0-33.0 [facility] Comment on above: Order Comment: No: D o not add to previous draw Performed By: #### 5 0103 #### [facility] [address] [place] [id number], [facility] MCHC (RBC) [Mass/Vol] 32.0 g/dL Normal 32.0-35.0 [facility] Comment on above: Order Comment: No: D o not add to previous draw Performed By: #### 5 3 #### [facility] [address] MCV (RBC) [Entitic vol] 85.9 fL Normal 82.0-98.0 [facility] Comment on above: Order Comment: No: D o not add to previous draw Performed By: #### 5 0103 #### [facility] [address] [place] [address], [facility] Nucleated RBC/100 WBC (Bld) [Ratio] 0 % Normal 0-0 [facility] Comment on above: Order Comment: No: D o not add to previous draw Performed By: #### 5 0103 #### [facility] [address] [facility] [place] [address], [facility] PLAT CNT 249 10*3/uL Normal 150-400 [facility] Comment on above: Order Comment: No: D o not add to previous draw Performed By: #### 5 0103 #### [facility] [address] [place] [address], [facility] RBC (Bld) [#/Vol] 5.82 10*6/uL High 4.20-5.70 [facility] Comment on above: Order Comment: No: D o not add to previous draw Performed By: #### 5 0103 #### [facility] [address] [place] [address], [facility] WBC (Bld) [#/Vol] 15.85 10*3/uL High 4.00-10.60 [facility] Comment on above: Order Comment: No: D o not add to previous draw Performed By: #### 5 0103 #### [facility] [address] Operative Reporton 9 Operative Report MR#: [id number] I [facility] Pt. Name: Matty Garces Room #: [id number] Discharge Date: Birthdate: 1970 OPERATIVE REPORT DATE OF SURGERY: 01/30/2019 SURGEON: Luciano Davis M.D. 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 POSTOPERATIVE DIAGNOSIS: Failed instrumentation at C6-7 on the right. RADIOLOGIC TECHNOLOGY PROGRAM DIRECTOR: ADENIKE Lugo. ANESTHESIA: Jennifer, Edison. PROCEDURES: Redo [...] P/Luciano Davis M.D. Date Trans: 01/31/2019 02:31 A/sasha [id number] cc: Venus Jaeger M.D. [address], [facility] Eze [facility] [id number] [facility] CERVICAL SPINE 2 OR 3 [facility] 01-30-2019 CERVICAL SPINE 2 OR 3 [facility] Department of Radiology [address] [place] [id number] ======== Patient Name: MATTY GARCES : 1970 Sex: M Age: Race: White Pt. Location: Patient Status: O Ordered Date: 01/30/2019 7:05:00 AM Completed Date: 01/30/2019 04:12 PM Requesting Provider: LUCIANO DAVIS Attending Provider: LUCIANO DAVIS Report Copy To: Signs & Symptoms: C6-7 ACDF History: C6-7 ACDF Comments: C6-7 ACDF Exam: CERVICAL SPINE [address] [facility] ======== CERVICAL SPINE 2 OR 3 VWS [...] documentation Electronically signed by:Justus Murphy. Transcribed by: [email or web address], User Resident: Electronically Signed by: JUSTUS MURPHY @ 01/30/2019 04:18 PM Normal [facility] Comment on above: Order Comment: C6-7 ACDF POC GLUCOSE LABon 01-30-2019 Glucose [Mass/Vol] 106 mg/dL High 70-100 [facility] Comment on above: Performed By: #### 5 0103 #### [facility] [address] [facility]. [address] *MRSA/MSSA DNA NASALon 01-23 *MRSA/MSSA DNA NASAL Clinical Report: (D ) Specimen: NASAL SWAB Collected: 01/23/2019 15:02 Status: Final Last Updated: 01/23/2019 20:14 MSSA DNA (Final) Methicillin Susceptible Staphylococcus aureus DNA Detected MRSA DNA (Final) No Methicillin Resistant Staphylococcus aureus DNA Detected Normal [facility] Comment on above: Performed By: #### 5 0103 #### [facility] [address] [facility]. [address] APTTon 01-23-2019 aPTT Coag (Bld) [Time] 35.4 s High 25.0-35.0 [facility] Comment on above: Result Comment: ALL [...] FOR THIS PURPOSE. Performed By: #### 5 7306, [id number] #### [facility] [address] [place] [address], [facility] BASIC METABOLIC PANELon 05- Calcium [Mass/Vol] 9.5 mg/dL Normal 8.6-10.3 [facility] Comment on above: Performed By: #### 5 Al, [id number] #### [facility] [address] [place] [address], [place] Chloride [Moles/Vol] 101 mmol/L Normal 98-107 [facility] Comment on above: Performed By: #### 5 7306, 70893 #### [facility] [address] [place] [address], [place] CO2 [Moles/Vol] 29 mmol/L Normal 21-31 [facility] Comment on above: Performed By: #### 5 7306, 28187 #### [facility] [address] [place] [address], [place] Creatinine [Mass/Vol] 1.08 mg/dL Normal 0.70-1.30 [facility] Comment on above: Performed By: #### 5 Al, 37412 #### [facility] [address] [place] [address], [place] GFR/1.73 sq M predicted among blacks MDRD (S/P/Bld) [Vol rate/Area] mL/min/{1.73_m2} Normal >60 [facility] Comment on above: Performed By: #### 5 7306, 06305 #### [facility] [address] [place] [address], [place] GFR/1.73 sq M predicted among non-blacks MDRD (S/P/Bld) [Vol rate/Area] mL/min/{1.73_m2} Normal >60 [facility] Comment on above: Performed By: #### 5 73Al, 70851 #### [facility] [address] [place] [address], [facility] Glucose [Mass/Vol] 87 mg/dL Normal 70-100 [facility] Comment on above: Performed By: #### 5 7307, 34508 #### [facility] [address] [place] [address], [facility] Potassium [Moles/Vol] 4.0 mmol/L Normal 3.5-5.1 [facility] Comment on above: Performed By: #### 5 7306, 44148 #### [facility] [address] [facility] [place] [address], [facility] Sodium [Moles/Vol] 137 mmol/L Normal 136-145 [facility] Comment on above: Performed By: #### 5 7306, 27569 #### [facility] [address] [facility]. [address] Urea nitrogen [Mass/Vol] 12 mg/dL Normal 7-25 [facility] Comment on above: Performed By: #### 5 7306, 01487 #### [facility] [address] [facility] [place] [address], [facility] CBC W/DIFFon 01-23-2019 ABS BASOPHILS 0.1 10*3/uL Normal 0.0-0.2 [facility] Comment on above: Performed By: #### 5 7307, 08094 #### [facility] [address] [facility]. [address] ABS IMM GRANS 0.0 10*3/uL Normal 0.0-0.2 [facility] Comment on above: Performed By: #### 5 7307, 91242 #### [facility] [address] [facility] [facility]. [address] ABS NEUTROPHILS 5.3 10*3/uL Normal 1.6-7.6 [facility] Comment on above: Performed By: #### 5 7307, 63926 #### [facility] [address] [place] [address], [facility] Basophils/100 WBC (Bld) 0.9 % Normal 0.0-1.0 [facility] Comment on above: Performed By: #### 7306, 67023 #### [facility] [address] [place] [address], [facility] Eosinophils (Bld) [#/Vol] 0.2 10*3/uL Normal 0.0-0.5 [facility] Comment on above: Performed By: #### 7306, 40351 #### [facility] [address] [place] [address], [facility] Eosinophils/100 WBC (Bld) 2.3 % Normal 0.0-6.0 [facility] Comment on above: Performed By: #### 7306, 56931 #### [facility] [address] [facility] [address] Erythrocyte distribution width (RBC) [Ratio] 13.8 % Normal 11.5-15.0 [facility] Comment on above: Performed By: #### 7306, 12511 #### [facility] [address] [facility] [place] [address], [facility] Hematocrit (Bld) [Volume fraction] 49.6 % Normal 39.0-50.0 [facility] Comment on above: Performed By: #### 5 7306, 78911 #### [facility] [address] [place] [id number], [facility] Hemoglobin (Bld) [Mass/Vol] 16.4 g/dL Normal 13.0-17.0 [facility] Comment on above: Performed By: #### 7306, 13779 #### [facility] [address] [place] [id number], [facility] IMMATURE GRANS 0.5 % Normal 0.0-1.0 The [facility] Comment on above: Performed By: #### 5 7306, 55404 #### [facility] [address] [place] [address], [facility] Lymphocytes (Bld) [#/Vol] 1.2 10*3/uL Normal 1.2-4.0 [facility] Comment on above: Performed By: #### 7306, 00148 #### [facility] [address] [place] [address], [facility] Lymphocytes/100 WBC (Bld) 16.6 % Low 20.0-45.0 [facility] Comment on above: Performed By: #### 7306, 06711 #### [facility] [address] [facility] [place] [address], [facility] MCH (RBC) [Entitic mass] 27.8 pg Normal 27.0-33.0 [facility] Comment on above: Performed By: #### 7306, 91363 #### [facility] [address] MCHC (RBC) [Mass/Vol] 33.1 g/dL Normal 32.0-35.0 [facility] Comment on above: Performed By: #### 5 7306, 95167 #### [facility] [address] [facility] [place] [place] [address], [facility] MCV (RBC) [Entitic vol] 84.2 fL Normal 82.0-98.0 [facility] Comment on above: Performed By: #### 5 7306, 59005 #### [facility] [address] [facility] [place] [place] [address], [facility] Monocytes (Bld) [#/Vol] 0.7 10*3/uL Normal 0.1-1.0 [facility] Comment on above: Performed By: #### 7306, 37003 #### [facility] [address] [place] [address], [facility] MONOS 9.4 % Normal 5.0-12.0 [facility] Comment on above: Performed By: #### 5 7307, 18697 #### [facility] [address] [place] [address], [facility] Neutrophils/100 WBC (Bld) 70.3 % Normal 40.0-72.0 [facility] Comment on above: Performed By: #### 5 7307, 56770 #### [facility] [address] [facility] [place] [place] [address], [facility] Nucleated RBC/100 WBC (Bld) [Ratio] 0 % Normal 0-0 [facility] Comment on above: Performed By: #### 5 7307, 46326 #### [facility] [address] [place] [address], [facility] PLAT CNT 235 10*3/uL Normal 150-400 [facility] Comment on above: Performed By: #### 5 7307, 71560 #### [facility] [address] [facility] [place] [address], [facility] RBC (Bld) [#/Vol] 5.89 10*6/uL High 4.20-5.70 [facility] Comment on above: Performed By: #### 5 7307, 06609 #### [facility] [address] [facility] [place] [address], [facility] WBC (Bld) [#/Vol] 7.48 10*3/uL Normal 4.00-10.60 [facility] Comment on above: Performed By: #### 5 7307, 11278 #### [facility] [address] [facility] [place] [address], [facility] PROTHROMBIN TIMEon 9 INR Coag (PPP) [Relative time] 1.12 {INR} Normal 0.91-1.16 [facility] Comment on above: Result Comment: ACCC [...] CHEST 1995;108:231S-246S. Performed By: #### 5 7307, 86225 #### [address] PT Coag (PPP) [Time] 14.4 s Normal 12.3-14.8 [facility] Comment on above: Result Comment: ALL RESULTS MUST BE INTERPRETED WITH RESPECT TO BLOOD DRAWING ARTIFACT OR DILUTION ERROR OF ANTICOAGULANT AT THE TIME OF SAMPLING. Performed By: #### 5 7307, 78718 #### [address] TYPE AND SCREENon 01-23-2019 ABO INTERPRETATION A Normal [facility] Comment on above: Performed By: #### 5 7307, 71352 #### [facility] [address] [place] [address], [facility] RH INTERPRETATION Positive Normal [facility] Comment on above: Performed By: #### 5 7307, 25533 #### [facility] [address] 3D CERVICAL SPINE WO CONT RASTon 01-12-2019 CT 3D CERVICAL SPINE WO CONTRAST [facility] Department of Radiology [address] [place] [address] ======== Patient Name: MATTY GARCES : 1970 Sex: M Age: Race: White Pt. Location: Patient Status: D Ordered Date: 01/10/2019 2:15:00 PM Completed Date: 01/12/2019 10:32 AM Requesting Provider: LUCIANO DAVIS Attending Provider: LUCIANO DAVIS Report Copy To: VENUS JAEGER Signs & Symptoms: M48.02 Spinal stenosis, cervical region I10 History: Althea para auth # [id number] 01/10/19-02/09/19 [id number] *er Comments: Exam: CT 3D CERVICAL SPINE [...] incomplete Electronically signed by:Ten Uriarte. Transcribed by: [email or web address], User Resident: Electronically Signed by: TEN URIARTE @ 01/13/2019 09:18 AM [place] [facility] CERVICAL SPINE 2 OR 3 [facility] 01-05-2019 CERVICAL SPINE 2 OR 3 [facility] Department of Radiology [address] [place] [id number] ======== Patient Name: MATTY GARCES : 1970 Sex: M Age: Race: White Pt. Location: Patient Status: O Ordered Date: 01/05/2019 9:00:00 AM Completed Date: 01/05/2019 09:06 AM Requesting Provider: LUCIANO DAVIS Attending Provider: LUCIANO DAVIS Report Copy To: Signs & Symptoms: M48.02 Spinal stenosis, cervical region I10 History: [place] Comments: , , , Ordering Provider - LUCIANO DAVIS MD , Exam: CERVICAL SPINE [address] [facility] ======== CERVICAL SPINE [address] [facility] 01/05/2019 9:06 AM EDT SIGNS [...] findings. Electronically signed by:Ten Uriarte. Transcribed by: [email or web address], User Resident: SHELLY DELA CRUZ Electronically Signed by: TEN URIARTE @ 01/05/2019 12:37 PM I personally read this/these film(s) with this resident Normal [facility] Comment on above: Order Comment: , , = ========= , Ordering Provider - LUCIANO DAVIS MD , CERVICAL SPINE 2 OR 3 [facility] 08-30-2018 CERVICAL SPINE 2 OR 3 [facility] Department of Radiology [address] [place] [id number] ======== Patient Name: MATTY GARCES : [...] findings. Electronically signed by:Bella King. Transcribed by: [email or web address], User Resident: RYAN ANDERSON Electronically Signed by: BELLA KING @ 08/30/2018 05:45 PM I personally read this/these film(s) with this resident Normal [facility] Comment on above: Order Comment: , POS T OP XRAY AP/LAT ONLY , POST OP XRAY AP/LAT ONLY , , , Ordering Provider - LUCIANO DAVIS MD , Operative Reporton 8 Operative Report MR#: [id number] I [facility] Pt. Name: Matty Garces Room #: [id number] Discharge Date: Birthdate: 1970 OPERATIVE REPORT DATE OF SURGERY: 08/17/2018 SURGEON: Luciano Davis M.D. PREOPERATIVE DIAGNOSIS: Herniated cervical disk at C6-7. POSTOPERATIVE DIAGNOSIS: Herniated cervical disk at C6-7. RADIOLOGIC TECHNOLOGY PROGRAM DIRECTOR: ADENIKE Larios. ANESTHESIA: Endotracheal, Braida. PROCEDURE: Anterior [...] size 8. l. Plate size 17 mm. keri. RADHA. ESTIMATED BLOOD LOSS: Minimal. OPERATIVE INDICATION: [...] Davis M.D. Date Trans: 08/17/2018 11:25 P/sasha [id number] cc: Venus Jaeger M.D. [address], [place] [address] Normal [facility] CERVICAL SPINE 2 OR 3 [facility] 08-17-2018 CERVICAL SPINE 2 OR 3 S [facility] Department of Radiology [address] [place] [address] ======== Patient Name: MATTY GARCES [...] ======== CERVICAL SPINE 2 OR 3 [facility] 08/17/2018 [...] findings. Electronically signed by:Bernice Hoyt. Transcribed by: [email or web address], User Resident: KENNETH DUVAL Electronically Signed by: BERNICE HOYT @ 08/18/2018 01:06 PM I personally read this/these film(s) with this resident Normal [facility] Comment on above: Order Comment: C6-7 ACDF with POC GLUCOSE LABon 08-17-2018 Glucose [Mass/Vol] 113 mg/dL High 70-100 [facility] Comment on above: Performed By: #### 8 5499 #### [facility] [address] [facility] [place] [address], [facility] RBC'S 2 UNITSon 08-17-2018 CROSSMATCH INTERP 1 COMP Normal [facility] Comment on above: Performed By: #### 8 6002 #### [facility] [address] [facility] [address], [place] CROSSMATCH INTERP 2 COMP Normal [facility] Comment on above: Performed By: #### 8 6002 #### [facility] [address] [facility] [place] [address], [facility] PRODUCT CODE 1 E0336 Normal [facility] Comment on above: Performed By: #### 8 6002 #### [facility] [address] [place] [address], [facility] PRODUCT CODE 2 E0336 Normal [facility] Comment on above: Performed By: #### 8 6002 #### [facility] [address] [place] [address], [place] PRODUCT STATUS 1 RE Normal [facility] Comment on above: Result Comment: Resu lt changed by IF on 08/20/2018 07:48. The previous value was XM. Performed By: #### 8 6002 #### [facility] [address] [place] [address], [place] PRODUCT STATUS 2 RE Normal [facility] Comment on above: Result Comment: Resu lt changed by IF on 08/20/2018 07:48. The previous value was XM. Performed By: #### 8 6002 #### [facility] [address] [place] [address], [facility] UNIT ABO 1 A Normal [facility] Comment on above: Performed By: #### 8 6002 #### [facility] [address] [place] [address], [place] UNIT ABO 2 A Normal [facility] Comment on above: Performed By: #### 8 6002 #### [facility] [address] [place] [address], [place] UNIT ID 1 [id number] Normal The [facility] Comment on above: Performed By: #### 8 6002 #### [facility] [address] [place] [address], [place] UNIT ID 2 [id number] Normal [facility] Comment on above: Performed By: #### 8 6002 #### [facility] [address] [place] [address], [place] UNIT RH 1 Positive Normal [facility] Comment on above: Performed By: #### 8 6002 #### [facility] [address] [facility]. [address] UNIT RH 2 Positive Normal [facility] Comment on above: Performed By: #### 8 6002 #### [facility] [address] *MRSA/MSSA CULTUREon 018 *MRSA/MSSA CULTURE Clinical Report: (D) Specimen: NASAL SWAB Collected: 08/02/2018 12:37 Status: Final Last Updated: 08/03/2018 14:26 ISO (Final) No Methicillin Resistant Staphylococcus aureus Isolated (MRSA) ISO (Final) Methicillin Sensitive Staphylococcus aureus (MSSA) Isolated Normal [facility] Comment on above: Performed By: #### 3 1302 #### [facility] [address] APTTon 08-02-2018 aPTT Coag (Bld) [Time] 31.2 s Normal 25.0-35.0 [facility] Comment on above: Result Comment: ALL [...] THIS PURPOSE. Performed By: #### 5 7307, 19981 #### [facility] [address] BASIC METABOLIC PANELon 07-15 Calcium [Mass/Vol] 9.4 mg/dL Normal 8.6-10.3 [facility] Comment on above: Performed By: #### 0 0071 #### [facility] [address] Chloride [Moles/Vol] 103 mmol/L Normal 98-107 [facility] Comment on above: Performed By: #### 0 0071 #### [facility] [address] [place] [address], [place] CO2 [Moles/Vol] 29 mmol/L Normal 21-31 The [facility] Comment on above: Performed By: #### 0 0071 #### [facility] [address] [place] [address], [place] Creatinine [Mass/Vol] 1.06 mg/dL Normal 0.70-1.30 [facility] Comment on above: Performed By: #### 0 0071 #### [facility] [address] [place] [address], [place] GFR/1.73 sq M predicted among blacks MDRD (S/P/Bld) [Vol rate/Area] mL/min/{1.73_m2} Normal >60 [facility] Comment on above: Performed By: #### 0 0071 #### [facility] [address] [place] [address], [place] GFR/1.73 sq M predicted among non-blacks MDRD (S/P/Bld) [Vol rate/Area] mL/min/{1.73_m2} Normal >60 [facility] Comment on above: Performed By: #### 0 0071 #### [facility] [address] [place] [address], [place] Glucose [Mass/Vol] 84 mg/dL Normal 70-100 [facility] Comment on above: Performed By: #### 0 0071 #### [facility] [address] [place] [address], [place] Potassium [Moles/Vol] 4.0 mmol/L Normal 3.5-5.1 [facility] Comment on above: Performed By: #### 0 0071 #### [facility] [address] [place] [address], [place] Sodium [Moles/Vol] 140 mmol/L Normal 136-145 [facility] Comment on above: Performed By: #### 0 0071 #### [facility] [address] Urea nitrogen [Mass/Vol] 20 mg/dL Normal 7-25 [facility] Comment on above: Performed By: #### 0 0071 #### [facility] [address] [place] [address], [facility] CBC W/DIFFon 08-02-2018 ABS BASOPHILS 0.1 10*3/uL Normal 0.0-0.2 [facility] Comment on above: Performed By: #### 5 0103 #### [facility] [address] ABS IMM GRANS 0.1 10*3/uL Normal 0.0-0.2 [facility] Comment on above: Performed By: #### 5 0103 #### [facility] [address] ABS NEUTROPHILS 4.2 10*3/uL Normal 1.6-7.6 [facility] Comment on above: Performed By: #### 5 102 #### [facility] [address] [place] [address], [facility] Basophils/100 WBC (Bld) 1.3 % High 0.0-1.0 [facility] Comment on above: Performed By: #### 5 0103 #### [facility] [address] [place] [address], [facility] Eosinophils (Bld) [#/Vol] 0.1 10*3/uL Normal 0.0-0.5 [facility] Comment on above: Performed By: #### 5 0103 #### [facility] [address] [place] [address], [facility] Eosinophils/100 WBC (Bld) 2.0 % Normal 0.0-6.0 [facility] Comment on above: Performed By: #### 5 3 #### [facility] [address] [facility]. [address] Erythrocyte distribution width (RBC) [Ratio] 13.6 % Normal 11.5-15.0 [facility] Comment on above: Performed By: #### 3 #### [facility] [address] [facility] [place] [address], [facility] Hematocrit (Bld) [Volume fraction] 44.3 % Normal 39.0-50.0 [facility] Comment on above: Performed By: #### 102 #### [facility] [address] Hemoglobin (Bld) [Mass/Vol] 15.1 g/dL Normal 13.0-17.0 [facility] Comment on above: Performed By: #### 102 #### [facility] [address] [facility]. [address] IMMATURE GRANS 1.1 % High 0.0-1.0 [facility] Comment on above: Performed By: #### 102 #### [facility] [address] Lymphocytes (Bld) [#/Vol] 1.2 10*3/uL Normal 1.2-4.0 [facility] Comment on above: Performed By: #### 3 #### [facility] [address] [facility]. [address] Lymphocytes/100 WBC (Bld) 18.3 % Low 20.0-45.0 [facility] Comment on above: Performed By: #### 102 #### [facility] [address] MCH (RBC) [Entitic mass] 29.0 pg Normal 27.0-33.0 [facility] Comment on above: Performed By: #### 102 #### [facility] [address] MCHC (RBC) [Mass/Vol] 34.1 g/dL Normal 32.0-35.0 [facility] Comment on above: Performed By: #### 5 0103 #### [facility] [address] [place] [address], [facility] MCV (RBC) [Entitic vol] 85.0 fL Normal 82.0-98.0 [facility] Comment on above: Performed By: #### 3 #### [facility] [address] [facility] [place] [address], [facility] Monocytes (Bld) [#/Vol] 0.7 10*3/uL Normal 0.1-1.0 [facility] Comment on above: Performed By: #### 3 #### [facility] [address] [facility] [address] MONOS 11.1 % Normal 5.0-12.0 [facility] Comment on above: Performed By: #### 3 #### [facility] [address] [facility]. [address] Neutrophils/100 WBC (Bld) 66.2 % Normal 40.0-72.0 [facility] Comment on above: Performed By: #### 3 #### [facility] [address] [facility] [place] [address], [facility] Nucleated RBC/100 WBC (Bld) [Ratio] 0 % Normal 0-0 [facility] Comment on above: Performed By: #### 5 3 #### [facility] [address] [facility] [place] [address], [facility] PLAT CNT 179 10*3/uL Normal 150-400 [facility] Comment on above: Performed By: #### 3 #### [facility] [address] RBC (Bld) [#/Vol] 5.21 10*6/uL Normal 4.20-5.70 [facility] Comment on above: Performed By: #### 5 0103 #### [facility] [address] WBC (Bld) [#/Vol] 6.39 10*3/uL Normal 4.00-10.60 [facility] Comment on above: Performed By: #### 5 0103 #### [facility] [address] CERVICAL SPINE 4 OR 5 VIEWSo n 08-02-2018 CERVICAL SPINE 4 OR 5 VIEWS [facility] Department of Radiology [address] [place] [phone] ======== Patient Name: MATTY GARCES : 1970 Sex: M Age: Race: White Pt. Location: Patient Status: D Ordered Date: 08/02/2018 1:05:00 PM Completed Date: 08/02/2018 01:29 PM Requesting Provider: LUCIANO DAVIS Attending Provider: LUCIANO DAVIS Report Copy To: VENUS JAEGER Signs & Symptoms: Z01.89 Encounter for other specified special examinations I10 History: [place] Comments: , PREOP XRAY AP/LAT \EANDE\ FLEX/EX [...] findings. Electronically signed by:Bella King. Transcribed by: [email or web address], User Resident: KENNETH DUVAL Electronically Signed by: BELLA KING @ 08/03/2018 11:58 AM I personally read this/these film(s) with this resident Normal [facility] Comment on above: Order Comment: , PRE OP XRAY AP/LAT \EANDE\ FLEX/EX , PREOP XRAY AP/LAT \EANDE\ FLEX/EX , , , Ordering Provider - LUCIANO DAVIS MD , PROTHROMBIN TIMEon 8 INR Coag (PPP) [Relative time] 1.15 {INR} Normal 0.91-1.16 [facility] Comment on above: Result Comment: ACCC [...] CHEST 1995;108:231S-246S. Performed By: #### 5 7307, 28039 #### [facility] [employer] [address] PT Coag (PPP) [Time] 14.7 s Normal 12.3-14.8 [facility] Comment on above: Result Comment: ALL RESULTS MUST BE INTERPRETED WITH RESPECT TO BLOOD DRAWING ARTIFACT OR DILUTION ERROR OF ANTICOAGULANT AT THE TIME OF SAMPLING. Performed By: #### 5 7307, 61671 #### [facility] [address] TYPE AND SCREENon 08-02-2018 ABO INTERPRETATION A Normal [facility] Comment on above: Order Comment: 2 uni ts 2 units 2 units 2 units 2 units Performed By: #### 6 2586 #### [facility] [address] RH INTERPRETATION Positive Normal The [facility] Comment on above: Order Comment: 2 uni ts 2 units 2 units 2 units 2 units Performed By: #### 6 2586 #### [facility] [address] URINALYSIS REFLEXon 11-20-20 18 Appearance (U) CLEAR Normal CLEAR [facility] Comment on above: Performed By: #### 3 0965 #### [facility] [address] [place] [address], [facility] Bilirubin [Mass/Vol] Negative Normal NEGATIVE [facility] Comment on above: Performed By: #### 3 0965 #### [facility] [address] [place] [address], [facility] BLOOD Negative Normal NEGATIVE [facility] Comment on above: Performed By: #### 3 0965 #### [facility] [address] [place] [address], [place] Color (U) YELLOW Normal YELLOW [facility] Comment on above: Performed By: #### 3 0965 #### [facility] [address] [place] [address], [facility] Glucose [Mass/Vol] 150 mg/dL Abnormal NEGATIVE [facility] Comment on above: Performed By: #### 3 0965 #### [facility] [address] [place] [address], [facility] KETONE Negative Normal NEGATIVE [facility] Comment on above: Performed By: #### 3 0965 #### [facility] [address] [place] [address], [facility] [place] Negative Normal NEGATIVE [facility] Comment on above: Performed By: #### 3 0965 #### [facility] [address] [place] [address], [place] MICRO NOT DONE negative chemical reactions unless requested in original order Normal [facility] Comment on above: Performed By: #### 3 0965 #### [facility] [address] [place] [address], [place] Nitrite Ql (U) Negative Normal NEGATIVE [facility] Comment on above: Performed By: #### 3 0965 #### [facility] [address] [place] [address], [facility] pH (Bld) 5.0 Normal 5.0-8.0 [facility] Comment on above: Performed By: #### 3 0965 #### [facility] [address] [place] [address], [facility] Protein (U) [Mass/Vol] Negative Normal NEGATIVE [facility] Comment on above: Performed By: #### 3 0965 #### [facility] [address] [place] [address], [facility] SPEC GRAV 1.024 High 1.015-1.020 [facility] Comment on above: Performed By: #### 3 0965 #### [facility] [address] [facility] [address], [facility] Vital Signs Date Time Vital Sign Value Performing Clinician Facility 07-03-2024 14:45-0400 Body height 188 cm Rubén Geiger MD Work Phone: [facility] 07-03-2024 14:45-0400 Body mass index (BMI) [Ratio] 37.62 kg/m2 Rubén Geiger MD Work Phone: [facility] 07-03-2024 14:45-0400 Body weight 132.9 kg Rubén Geiger MD Work Phone: [facility] 02-25-2022 10:30-0400 Blood Pressure Location Viola Mitchel [facility] 02-25-2022 10:30-0400 Diastolic blood pressure 107 mm[Hg] Viola Lue [facility] 02-25-2022 10:30-0400 Heart rate 74 /min Viola Lue [facility] 02-25-2022 10:30-0400 Respiratory rate 16 /min Viola Grullon [facility] 02-25-2022 10:30-0400 Systolic blood pressure 157 mm[Hg] Viola Grullon [facility] Encounters Encounter Date Encounter Type Care Provider Facility Start: 10-12-2024 End: 10-12-2024 Telephone encounter Heather Miguel NP Work Phone: [facility] Start: 10-08-2024 Evaluation and management of inpatient LEONIE BETHFORD [facility] Start: 10-08-2024 End: 10-11-2024 Evaluation and management of inpatient ARMANDO MORENA [facility] Start: 10-02-2024 End: 10-02-2024 Refill Marianna Sheehan HYDRODYNAMICS TEACHER [facility] Comment on above: Excessive daytime sl eepiness; Obstructive sleep apnea Start: 09-28-2024 Evaluation and management of inpatient MARIANNA SUAREZ [facility] Start: 09-25-2024 Evaluation and management of inpatient MARILOU ISRAEL [facility] Start: 09-25-2024 Evaluation and management of inpatient SHIN [facility] Start: 09-24-2024 Evaluation and management of inpatient [facility] Start: 09-24-2024 Evaluation and management of inpatient SANDRINE HAHN [facility] Start: 09-24-2024 Evaluation and management of inpatient [facility] Start: 09-23-2024 Emergency department patient visit [facility] Start: 09-23-2024 Emergency department patient visit [facility] Start: 09-23-2024 Emergency department patient visit [facility] Start: 09-23-2024 End: 09-28-2024 Evaluation and management of inpatient SERA WAYNE [facility] Start: 09-21-2024 End: 09-21-2024 ambulatory Trey Smith [facility] Work Phone: Start: 09-21-2024 End: 09-21-2024 Departed Referred Trey Vallejo DPM Work Phone: [facility] Start: 07-04-2024 End: 07-05-2024 Telephone encounter [...] Bamboo flowsheet Rubén Geiger MD Work Phone: [facility] Start: 07-03-2024 End: 07-03-2024 Bamwilmao flowsheet Rubén Geiger MD Work Phone: [facility] Start: 05-10-2024 End: 05-11-2024 Refill Rubén Geiger MD Work Phone: [facility] Comment on above: Primary insomnia Start: 03-27-2024 End: 03-27-2024 ambulatory RUBÉN GEIGER Not Available Start: 01-10-2024 End: 01-10-2024 ambulatory VALENCIA DE LEÓN Not Available Start: 01-03-2024 End: 01-03-2024 ambulatory Trey Smith [facility] Work Phone: Start: 01-03-2024 End: 01-03-2024 Departed Referred DPM Trey Vallejo Work Phone: [facility] Start: 12-29-2023 End: 12-29-2023 ambulatory RUBÉN GEIGER Not Available Start: 11-29-2023 End: 11-30-2023 ambulatory Diallo Beauchamp MD Facility:[facility] Start: 10-18-2023 End: 10-19-2023 ambulatory Andisai Beauchamp MD Facility:[facility] Start: 09-27-2023 End: 09-27-2023 ambulatory RUBÉN GEIGER Not Available Start: 08-30-2023 End: 08-31-2023 ambulatory Diallo Beauchamp MD Facility:[facility] Start: 07-12-2023 End: 07-13-2023 ambulatory Andisai Beauchamp MD Facility:[facility] Start: 06-14-2023 End: 06-15-2023 ambulatory Diallo Beauchamp MD Facility:[facility] Start: 12-06-2022 End: 12-06-[address] VENUS JAEGER . Facility:[facility] Start: 12-05-2022 Encounter for genera l adult medical examination without abnormal findings DR VENUS JAEGER . [facility] Start: 12-01-2022 End: 12-02-[address] VENUS JAEGER . Facility:[facility] Start: 12-01-2022 End: 12-02-2022 Encounter for general adult medical examination without abnormal findings DR VENUS JAEGER . Facility:[facility] Start: 07-10-2022 End: 07-11-[address] VENUS JAEGER . Facility:[facility] Start: 03-26-2022 End: 03-26-[address] VENUS JAEGER . Facility:[facility] Start: 03-13-2022 End: 03-14-[address] VENUS JAEGER . Facility:[facility] Start: 02-25-2022 End: 02-25-2022 Patient encounter procedure Viola Grullon [facility] Start: 01-04-2022 End: 01-05-[address] VENUS JAEGER . Facility: Start: 01-30-2019 End: 02-01-2019 Evaluation and management of inpatient PROVIDER UNKNOWN Facility:[facility] Start: 08-17-2018 End: 08-18-2018 Patient encounter procedure PROVIDER UNKNOWN Facility:[facility] Procedures Date Procedure Procedure Detail Performing Clinician Start: 12-01-[address] FRANKLIN JAEGER . Comment on above: Performed By: #### P [facility] #### [facility] [address] [place] [address] Dr. Shabnam Rae Start: 01-30-2019 FUSION CERV JT W INT BD FUS DEV, ANT APPR A COL, OPEN AZEDINE MEDHKOUR Start: 01-30-2019 REMOVAL OF INT FIX F ROM CERVCAL VERTEBRA, OPEN APPROACH AZEDINE [facility]HK[facility] Start: 01-23-2019 Antibody screen PROVIDE R UNKNOWN Comment on above: Performed By: #### [id number] #### [facility] [address] [facility] Start: 08-17-2018 ANESTH SPINE CORD SURGERY [...] units Performed By: #### [id number] #### [facility] [address] [facility] Start: 02-08-1998 H/O: vasectomy History of vasectomy Rubén Geiger MD Work Phone: Colonoscopy Viola Grullon Hemorrhoids (disorder) Viola Grullon Hernia of abdominal cavity (disorder) Viola Grullon Tonsillectomy Viola Grullon Plan of Treatment Date Care Activity Detail Author Start: 01-03-2025 End: 01-03-2025 Patient encounter procedure 01/03/2025 3:00 PM EDT Office Visit [facility] [address] [address] Rubén Geiger MD [address] [facility] [address] [place] [address] [id number] [facility] Start: 10-04-2024 End: 10-04-2024 Patient encounter procedure 10/04/2024 2:20 PM EST Office Visit [facility] [address] [facility] [address] [place] [address] Rubén Geiger MD [address] [facility] [address] [place] [id number] [facility] Start: 09-21-2024 Superficial Wound Culture Superficial Wound Culture [facility] Start: 07-03-2024 End: 07-03-2024 Patient encounter procedure [facility] Comment on above: Arrived Start: 05-14-2024 Influenza vaccination Influenza Vacc ine (#1) [facility] Start: 1970 [facility] Bacteria identified in Unspecified specimen by Aerobe culture [facility] Immunizations Immunization Date Immunization Notes Care Provider Fa cility 07-06-2023 influenza virus vacc ine, unspecified formulation Rubén Geiger MD Work Phone: [facility] Healthcare Payers Date Payer Category Payer Self-pay [id number] 2022 Medicaid [id number] 2022 Medicaid [id number] 2022 Unknown 1970 Unknown [id number] 2.16.8 40.1.281375.3.579.2.647 1970 Unknown [id number] 2.16.8 40.1.104718.3.579.2.647 1970 Unknown [id number] 2.16.84 0.1.038800.3.579.2.593 1970 Unknown [id number] 2.16.84 0.1.564903.3.579.2.593 1969 Unknown [id number] 2.16.84 0.1.656195.3.579.2.593 1969 Unknown [id number] 2.16.84 0.1.251425.3.579.2.593 1969 Unknown [id number] 2.16.84 0.1.240822.3.579.2.593 1969 Unknown [id number] 2.16.84 0.1.724625.3.579.2.593 1969 Unknown [id number] 2.16. 840.1.923439.3.579.2.196 1969 Unknown [id number] 2.16. 840.1.559532.3.579.2.196 1969 Unknown [id number] 2.16. 840.1.752409.3.579.2.196 1969 Unknown [id number] 2.16. 840.1.015190.3.579.2.196 1969 Unknown [id number] 2.16. 840.1.462892.3.579.2.196 1969 Unknown [id number] 2.16.84 0.1.121310.3.579.2.1259 1969 Unknown [id number] 2.16.84 0.1.448189.3.579.2.1259 1969 Unknown [id number] 2.16.84 0.1.088413.3.579.2.1259 1969 Unknown [id number] 2.16.84 0.1.100779.3.579.2.1259 1969 Unknown [id number] 2.16.84 0.1.472701.3.579.2.1259 1969 Unknown [id number] 2.16.84 0.1.386044.3.579.2.1259 1959 Unknown [id number] Unknown [id number] Unknown [id number] 2.16.8 40.1.428374.3.579.2.531 Unknown [id number] 2.16.8 40.1.671322.3.579.2.531 Social History Date Type Detail Facility Tobacco smoking status No Smokin g Status Entered [facility] Start: 03-27-2024 End: 07-03-2024 Sex Assigned At Male [facility] Start: 05-15-2018 End: 05-15-2018 Tobacco smoking status ARIS Ex-smoker (finding) [facility] Start: 1970 Sex Assigned At Male [facility] Start: 03-11-2023 Tobacco smoking stat us [facility] Never smoked tobacco [facility] Start: 03-11-2023 Tobacco use and exposure Smokeless tobacco non-user [facility] Start: 03-27-2024 End: 07-03-2024 Alcoholic beverage intake Ex-drinker (finding) [facility] Start: 03-27-2024 End: 07-03-2024 History of Social function [facility] Start: 1970 Sex assigned at Not on file [facility] Start: 09-22-2024 Sex Male (finding) [facility] Functional Status Date Assessment Result Facility 02-25-2022 Functional Status N/A [facility] Clinical Notes 02-25-2022 to 10-12-2024 Telephone Encounter - Heather Miguel NP - 10/12/2024 7:20 PM ESTTelephone Encounter - Heather Miguel NP - 10/12/2024 7:20 PM Elsi Geiger MD - 07/03/2024 2:40 PM EDT Note Date & Type Note Facility 10-12-2024 Telephone encounter Note Did we send in Xywav REMS form for this patient? [facility] pharmacy calls that the form we sent in had white out on the titration section on the form. They need new form without white out on it? I do not see anything in media sent and if I search patient chat. [facility] 10-12-2024 Miscellaneous Notes Did we send in Xywav REMS form for this patient? [facility] pharmacy calls that the form we sent in had white out on the titration section on the form. They need new form without white out on it? I do not see anything in media sent and if I search patient chat. documented in this encounter [facility] 10-11-2024 Note Occupational Therapy Occupational Therapy Treatment Note Patient Name: Matty Garces Patient Date of : 1970 Today's Date: 10/11/24 Time in: 1338 Time Out: 1403 Total Time: 25 Past Medical History and Past Surgical History Patient Active Problem List Diagnosis Non-ischemic cardiomyopathy (CMS/HCC) Diastolic dysfunction with chronic heart failure (CMS/HCC) Benign hypertensive cardiomyopathy with heart failure (CMS/HCC) Chronic combined systolic and diastolic congestive heart failure, NYHA class 2 (CMS/HCC) Fall at home, initial encounter Closed fracture of right fibula and tibia HTN (hypertension) PATEL (obstructive sleep apnea) Gastroesophageal reflux disease Obese Left leg cellulitis Anxiety disorder Open wound of left great toe Cellulitis of left leg Past Medical History: Diagnosis Date Hypertension Past Surgical History: Procedure Laterality Date ABDOMINAL SURGERY FRACTURE SURGERY OT Received On 10/11/2024 Subjective When I get home, Im going to put in a elba toilet. (Cash Register Repairer suggesting a RTS or to have son put in toilet however, pt stated that he will replace the toilet himself) Objective 1 Pt was up in chair at EOS with on her way. Objective 2 Cash Register Repairer provided education on home and bathroom safety. Pt verbalized understanding. OT Discharge Recommendation Home with assist OT Equipment Recommendations Raised toilet seat (Which pt declines) General Pain 4 Pain Location R LE Pain Comments Precautions: UE WB status bilateral, WBAT LE WB status bilateral, WBAT Cognition Orientation Oriented x4 Attention Span intact Needed cues to redirect Memory intact Sequencing intact Problem Solving impaired Follows one step commands with repetition. Other Pt lacks insight to deficits General Assessment Vision intact Hearing Intact Communication Intact Skin: Discoloration of B LE's Edema: None noted Balance: Sitting Static Balance: Balance support RUE support, LUE support, Unilateral UE Support, No UE Support, Feet Supported Level of Assist: Supervision/set -up Comments: While sitting EOB Sitting Dynamic Balance: Balance support RUE support, LUE support, Unilateral UE Support, No UE Support, Feet Supported Level of Assist: Supervision/set -up Comments: While demo'ing ability to complete LB dressing tasks Standing Static Balance: Balance support R UE support, L UE support, Rolling Walker Level of Assist: Supervision/set -up Comments: Activities of Daily Living UB dressing: Level of Assistance: Supervision/set -up Where Assessed: From chair, No equipment used Comments: To doff gown and don shirt LB dressing: Level of Assistance: Where Assessed: Comments: Pt did not participate in LB dressing techniques however was able to bring B LE up to demo ability to reach for dressing. Bed Mobility: With HOB flat, no rails Rolling Right: SBA/Supervision Comments: Supine to Sit: SBA/Supervision Comments: Transfers: Sit to Stand: SBA/Supervision, Rolling Walker Comments: Stand to Sit: SBA/Supervision, None Comments: To chair: SBA/Supervision, Rolling Walker Comments: Functional Ambulation: Pt ambulated with use of walker and hands on for safety as pt stated that he has a h/o seizure activity causing him to black out and fall without warning Assessment: OT Assessment OT Impairments: Decreased ADL status, Decreased safe judgment during ADL, Decreased endurance, Decreased functional mobility, Decreased IADLs OT Assessment/ANNA Summary: Pt is progressing toward goals but would benefit from continued therapy to increase balance, safety and endurance during functional mobility and ADL's to return to PLOF Prognosis: Fair Evaluation/Treatment Tolerance: Patient tolerated treatment well Medical Staff Made Aware: Yes Strengths: Ability to acquire knowledge, Housing layout, Living arrangement secure, Support and attitude of living partners, Support of extended family/friends Barriers to Discharge: Insight into problems OT Education/Comments: Purpose of therapy, AE and home safety Plan: Plan Level of assist: 1 assist Treatment Interventions: ADL retraining, Functional transfer training, Endurance training, Cognitive reorientation, Neuromuscular reeducation, Equipment evaluation/education OT Plan: Skilled OT OT Frequency: 1 time per day until discharge & PRN OT Discharge Recommendations: Home Equipment Recommended: toilet riser OT - Discharge Recommendations Placed: Yes AM-PAC 6 Clicks Putting on and taking off regular lower body clothing?: A Little (Min Assist/Contact Guard/Supervision) Bathing(Including washing,rinsing,drying)?: A Little (Min Assist/Contact Guard/Supervision) Toileting, which includes using the toilet,bedpan,or urinal?: A Little (Min Assist/Contact Guard/Supervision) Putting on and taking off regular upper body clothing?: A Little (Min Henrietta (more content not included)... [facility] 10-11-2024 Note Hospital Medicine Discharge Summary Final Discharge Diagnosis: Left leg cellulitis Open wound of left great toe HTN Anxiety disorder Chronic combined systolic and diastolic Congestive heart failure, NYHA II Closed fracture of right fibula and tibia Admission Diagnosis: Left leg cellulitis [L03.116] Cellulitis of right lower extremity [L03.115] Cellulitis of left leg [L03.116] Hospital course: 54-year-old male who came from [facility] due to left lower extremity cellulitis. The patient does have history significant for right leg tibia/fibula fracture status post intramedullary wendy placement on 09/24/2024. Patient was admitted to the medical floor and was seen by orthopedics and vascular surgery. Patient was started on broad-spectrum antibiotics with vancomycin and cefepime. X-rays were done, he was found to have swelling of the right lower extremity with no changes with the bone. Discussed with orthopedics, his presentation is more likely related to cellulitis, they were not concerned about deep tissue infection or osteomyelitis. Patient was seen by vascular surgery during this admission to manage his wounds with no need for debridement. Patient will be continued on oral antibiotics with Augmentin and to follow-up with orthopedics as an outpatient, he is scheduled to see them in 2 weeks. Discharged home with home health care in stable condition on 10/11/2024. Surgical, Invasive or Diagnostic Procedures Done During Admission: None Consultations During Admission: Orthopedics and Vascular Surgery Dear Dr. Mil MD, Matty is advised to follow up with you within 1-2 weeks. Items to follow up in ambulatory setting: None Follow-up with: Urology and Vascular Surgery Scheduled appointments: Future Appointments Date Time Provider Department Center 10/26/2024 2:50 PM Sandrine Hahn MD [facility] Your medication list START taking these medications Instructions Last Dose Given Next Dose Due amLODIPine 5 mg tablet Commonly known as: Norvasc Start taking on: October 12, 2024 Take 1 tablet (5 mg) by mouth in the morning for 96 doses. amoxicillin-pot clavulanate 875-125 mg tablet Commonly known as: Augmentin Take 1 tablet by mouth two times daily for 10 days. CHANGE how you take these medications Instructions Last Dose Given Next Dose Due aspirin 81 mg EC tablet Start taking on: October 27, 2024 What changed: Another medication with the same name was removed. Continue taking this medication, and follow the directions you see here. Take 1 tablet (81 mg) by mouth in the morning. Do not start before October 27, 2024. CONTINUE taking these medications Instructions Last Dose Given Next Dose Due acetaminophen 500 mg tablet Commonly known as: Tylenol Take 1 tablet (500 mg) by mouth every 6 (six) hours if needed for mild pain (1-3 pain score). amantadine 100 mg capsule Commonly known as: Symmetrel calcium 500 mg calcium (1,250 mg) tablet Take 1 tablet (500 mg) by mouth with breakfast, with lunch, and with evening meal. carvedilol 25 mg tablet Commonly known as: Coreg cholecalciferol 50 MCG (2000 UT) tablet Commonly known as: Vitamin D-3 Take 1 tablet (50 mcg) by mouth in the morning for 30 doses. citalopram 40 mg tablet Commonly known as: CeleXA clonazePAM [...] 25 mg tablet Commonly known as: Antivert methocarbamoL 1,000 mg tablet Take 1,000 mg by mouth if needed in the morning, at noon, and at bedtime for muscle spasms. modafinil 200 mg tablet Commonly known as: Provigil multivitamin tablet ondansetron 4 mg tablet Commonly known as: Zofran oxyCODONE 5 mg immediate release tablet Commonly known as: Roxicodone Take 1 tablet (5 mg) by mouth every 6 (six) hours if needed for severe pain (8-10 pain score). pantoprazole 40 mg EC tablet Commonly known as: ProtoNix potassium chloride ER 10 mEq ER capsule Commonly known as: Micro-K sennosides-docusate sodium 8.6-50 mg tablet Commonly known as: Mary Lou-Colace Take 1 tablet by mouth two times daily. sildenafil 25 mg tablet Commonly known as: Viagra simvastatin 20 mg tablet Commonly known as: Zocor SUMAtriptan 100 mg tablet Commonly known as: Imitrex testosterone cypionate 200 mg/mL injection Commonly known as: Depo-Testosterone tiZANidine 4 mg capsule Commonly known as: Zanaflex Where to Get Your Medications These medications were sent to [facility] - [place], [place] - [address] [facility] [place] [address] [facility] [place] [address], [facility] [id number] Phone (more content not included)... [facility] 10-11-2024 Note Pharmacy Dosing Serv ice - Vancomycin Follow Up Note Drug: Vancomycin Duration: Day 4 of empiric therapy Indication: complicated skin and soft tissue infection AUC 400-600 mg*hr/L and trough 10-20 mcg/mL Other Antimicrobial Regimens: Cefepime Labs and Renal Function Lab Results Component Value Date WBC 7.05 10/11/2024 WBC 7.04 10/10/2024 WBC 8.22 10/09/2024 Lab Results Component Value Date BUN 8 10/11/2024 BUN 8 10/10/2024 BUN 7 10/09/2024 CREATININE 1.02 10/11/2024 CREATININE 0.93 10/10/2024 CREATININE 0.98 10/09/2024 I/O: stable Estimated Pharmacokinetic Parameters: Vancomycin Pk Date/Time Value Ref Range Status 10/10/2024 02:46 PM 23.0 20.0 - 50.0 ug/mL Final Vancomycin Tr Date/Time Value Ref Range Status 10/10/2024 05:49 AM 19.2 5.0 - 20.0 ug/mL Final Weight used to calculate CrCl and Ke: actual body weight Last Dose: 1750 mg Date: 10/10 Time: 927 1st level: 23.0 mcg/mL drawn ~5 hours post-dose 2nd level: 19.2 mcg/mL drawn ~7 hours post-dose Pharmacokinetic Parameters: Vd: 66.1 L Ke: 0.106 hr -1 T1/2: 6.5 hr AUC: 498 mg*hr/L Trough: 12.7 mcg/mL Microbiology: -Bcx NGTD Assessment / Comments: -Therapeutic AUC and trough, continue current regimen. -Antimicrobial agents have appropriate automatic stop dates? yes -Current risk factors for nephrotoxicity: Concomitant diuretics -Comments on renal function / baseline serum creatinine: Renal function at baseline and stable Plan: -Continue current regimen of vancomycin 1750 mg every 12 hours - Plan to recheck serum peak and trough levels in 5-7 days if patient remains on therapy. -Check BUN/SCr daily -Pharmacy will follow up daily on culture and sensitivity results and renal function -Please do not hesitate to contact us with comments or questions Thank you, Sudha Camacho, PharmD, 10/11/24 [facility] 10-11-2024 Note Attestation signed by Sandrine Hahn MD at 10/11/2024 8:44 AM By using the attestations below, the [...] additional personal documentation from me. Additional Comments: Orthopaedic Surgery Orthopaedic Surgery Plan of Care Note Date: 10/11/2024 Surgery: - R tibial IMN on 09/24/24 Patient was seen and evaluated yesterday at bedside, at which time our team determined that there is no indication for further orthopaedic surgical interventions. His CRP is also downtrending (11.5 from 26.6). Since he will no longer benefit from inpatient orthopaedic evaluation, orthopaedic surgery will be signing off. May contact the on-call resident with any concerns via the Orthopaedic pager ([phone]) at any time. Jazzmine Casanova MD Orthopedic Surgery Resident, PGY 1 [facility] 10-10-2024 Note Hospital Medicine Daily Progress Note - 10/10/2024 6:40 PM; Room: [address] [place] [address] Admission: 10/08/2024 5:47 AM; Length of stay: 2 days THE HOSPITALIST TEAM PREFERS TO USE drchron[employer] CHAT FOR NON-URGENT COMMUNICATION 7AM-7PM. IF I DO NOT RESPOND WITHIN 20 MINUTES OR URGENT MATTERS, PLEASE CALL THROUGH THE GRAVITY PROSPECTING OBSERVER HELPER. FROM 7PM-7AM, PLEASE PAGE [phone](COVR). Code Status: Full Code Barriers to Discharge: Left lower extremity cellulitis. Expected Discharge Date: 1-2 days Discharge Destination: home Overview Patient is seen for evaluation and management of LLE wound and cellulitis. Subjective Patient seen and examined, Discussed with RN, reporting no new symptoms, continues to feel anxious and having pain of the left lower extremity. Physical Exam Visit Vitals BP 125/85 (BP Location: Right arm, Patient Position: Lying) Pulse 78 Temp 36.5 ???C (97.7 ???F) (Oral) Resp 19 Intake/Output Summary (Last 24 hours) at 10/10/2024 1840 Last data filed at 10/10/2024 1633 Gross per 24 hour Intake 850 ml Output 1300 ml Net -450 ml Estimated body mass index is 29.72 kg/m??? as calculated from the following: Height as of this encounter: 1.88 m (6' 2 ). Weight as of this encounter: 105 kg (231 lb 7.7 oz). Constitutional: no distress CV: RRR, normal S1-S2, no murmurs Resp: CTA, no crackles or wheezing Abd: Soft, non-tender Extremities: RLE erythematous and edematous, LLE wrapped; media reviewed Skin : Warm, dry Neuro: No focal deficit. At baseline. Psych: Anxious Active Inpatient Problems Principal Problem: Left leg cellulitis Active Problems: HTN (hypertension) Anxiety disorder Open wound of left great toe Cellulitis of left leg Chronic combined systolic and diastolic congestive heart failure, NYHA class 2 (CMS/HCC) Closed fracture of right fibula and tibia Assessment and Plan Left leg cellulitis Open wound of left great toe -Continue vanco and zosyn, Will de-escalate antibiotics in a.m. if cultures continues to be negative. -BCX NGTD - vascular surgery evaluated the patient, no concerns for deep tissue infection that needs debridement. HTN -Continue home modafinil, coreg Anxiety disorder -Continue home citalopram, clonazepam Chronic combined systolic and diastolic congestive heart failure, NYHA II -Not in exacerbation -Continue home furosemide, coreg, asa Closed fracture of right fibula and tibia -Ortho following, no intervention -WBAT VTE Prophylaxis: Heparin subcutaneous Scheduled Meds amantadine, 100 mg, oral, BID amLODIPine, 5 mg, oral, Daily aspirin, 81 mg, oral, BID carvedilol, 25 mg, oral, BID with meals cefepime, 2 g, intravenous, q8h citalopram, 20 mg, oral, Daily clonazePAM, 0.5 mg, oral, Nightly doxazosin, 8 mg, oral, Nightly furosemide, 20 mg, oral, Daily gabapentin, 600 mg, oral, BID heparin (porcine), 5,000 Units, subcutaneous, TID modafinil, 200 mg, oral, BID pantoprazole, 40 mg, oral, Daily before breakfast simvastatin, 20 mg, oral, Nightly tiZANidine, 4 mg, oral, Nightly vancomycin, 1.75 g, intravenous, q12h Pertinent Investigations Hematology: Results from last 7 days Lab Units 10/10/24 0911 10/10/24 0549 10/09/24 0617 10/08/24 0938 CRP mg/L 11.5* -- -- 26.6* WBC AUTO 10*3/uL -- 7.04 8.22 -- HEMOGLOBIN g/dL -- 13.4 12.8* -- HEMATOCRIT % -- 44.5 42.0 -- MCV fL -- 89.4 88.2 -- PLATELETS AUTO 10*3/uL -- 243 240 -- Chemistry: Results from last 7 days Lab Units 10/10/24 0549 10/09/24 0617 10/08/24 0735 SODIUM mmol/L 135* 137 141 POTASSIUM mmol/L 4.0 4.0 4.2 CHLORIDE mmol/L 96* 96* 99 CO2 mmol/L 34* 36* 37* BUN mg/dL 8 7 10 CREATININE mg/dL 0.93 0.98 0.96 GLUCOSE mg/dL 85 90 83 MAGNESIUM mg/dL -- 2.0 1.8* CALCIUM mg/dL 9.5 9.4 9.5 Results from last 7 days Lab Units 10/08/24 0735 AST U/L 19 ALT U/L 14 ALK PHOS U/L 130* BILIRUBIN TOTAL mg/dL 0.7 Historical Values: (Includes values prior to this admission) No results found for: PREALBUMIN , TSH , T3FREE , FREET4 , CORTISOL , FEV1 , [id number] , DLCO , RVSP , HDL , LDL No results found for: [id number] , IRON , TIBC , C3 , C4 , JEROME , CANCA , ASO , PSA , CEA , CA125 , CA199 , AFP , CA153 Imaging XR tibia fibula 2 views right Narrative: XR TIBIA FIBULA 2 VIEWS RIGHT 10/08/2024 8:43 AM CLINICAL INDICATIONS: Follow-up tibia fracture and hardware fixation COMPARISON: September 2024 FINDINGS: Comminuted fracture of the distal third tibia diaphysis noted. Intramedullary wendy with proximal distal screw fixation present. No significant callus formation or bony bridging at this early point. Minor residual angulation and fragmentation of the fibular fracture. Hardware appears uncomplicated. Impression: * Stable alignment and appearance of hardware fixation tibia fracture. Electronically signed: Scott Lynn. Discharge Planning Expected Discharge Disposition: Home-Health Care c (06) PT (more content not included)... [facility] 10-10-2024 Note [facility] Vascular Surgery/Wound Care CONSULTATION Reason for Consult: RLE cellulitis and L great toe DFU Subjective History of Present Illness: Matty Garces is a 54 y.o. male with a PMH of DM, HTN, and HF. He is admitted for treatment of RLE cellulitis and L great toe DFU. Patient is known to our service from his recent admission on 09/24/24 where we followed him for his left great toe DFU. At that time, wound did appear to be healing well without infection or complication. Wound care at that time included collagen, SilvaSorb, Adaptic, ABD, dry dressing. Patient reports that he has followed with marker assembler in [place] for many years for treatment of his left great toe DFU. States that is chronic and has been minimal healing progress until recently. Patient states he would like to resume care with this marker assembler at discharge. He has not been able to see marker assembler since previous discharge due to scheduling issues. Because of this, he has not had targeted wound care at home since previous admission but states he has kept wound clean, dry, and covered. Denies recent changes to wound including increased pain, drainage, color, size, warmth. Does not utilize diabetic footwear. States he first noticed erythema, pain and swelling to his right lower extremity 2 days prior toadmission. Recently underwent surgery to his right tibia but reports keeping surgical site closed with sutures, clean and dry. Patient is currently on cefepime and vancomycin. Reports significant improvement in pain and erythema to his right lower extremity. States it has returned to its baseline appearance ayers. Patient does not have recent vascular imaging. Denies history of other wounds, claudication, rest pain. Review of Systems Constitutional: Negative for chills and fever. Respiratory: Negative for shortness of breath. Cardiovascular: Negative for chest pain. Gastrointestinal: Negative for abdominal pain. Skin: Positive for color change and wound. Neurological: Negative for weakness and numbness. Past Medical History: Diagnosis Date Hypertension Past Surgical History: Procedure Laterality Date ABDOMINAL SURGERY FRACTURE SURGERY No Known Allergies Current Facility-Administered Medications: acetaminophen (Tylenol) tablet 650 mg, 650 mg, oral, q6h PRN, Tonya Lerner NP amantadine (Symmetrel) capsule 100 mg, 100 mg, oral, BID, Tonya Lerner NP, 100 mg at 10/10/24 0820 amLODIPine (Norvasc) tablet 5 mg, 5 mg, oral, Daily, Ze Echevarria MD, 5 mg at 10/10/24 08 aspirin EC tablet 81 mg, 81 mg, oral, BID, Tonya Lerner NP, 81 mg at 10/10/24 0820 carvedilol (Coreg) tablet 25 mg, 25 mg, oral, BID with meals, Tonya Lerner NP, 25 mg at 10/10/24 0820 [COMPLETED] cefepime (Maxipime) 2 g in sodium chloride 0.9 % 50 mL IVPB, 2 g, intravenous, Once, Stopped at 10/08/24 1028 FOLLOWED BY cefepime (Maxipime) 2 g in sodium chloride 0.9 % 50 mL IVPB, 2 g, intravenous, q8h, Tonya Lerner NP, Stopped at 10/10/24 1220 citalopram (CeleXA) tablet 20 mg, 20 mg, oral, Daily, Tonya Lerner NP, 20 mg at 10/10/24 0820 clonazePAM (KlonoPIN) tablet 0.5 mg, 0.5 mg, oral, Nightly, Tnoya Lerner NP, 0.5 mg at 10/09/24 2230 doxazosin (Cardura) tablet 8 mg, 8 mg, oral, Nightly, Tonya Lerner NP, 8 mg at 10/09/24 2230 furosemide (Lasix) tablet 20 mg, 20 mg, oral, Daily, Tonya Lerner NP, 20 mg at 10/10/24 08 gabapentin (Neurontin) capsule 600 mg, 600 mg, oral, BID, Tonya Lerner NP, 600 mg at 10/10/24 0820 heparin (porcine) injection 5,000 Units, 5,000 Units, subcutaneous, TID, Sergei Brown MD, 5,000 Units at 10/10/24 0820 melatonin tablet 5 mg, 5 mg, oral, Nightly PRN, Tonya Lerner NP modafinil (Provigil) tablet 200 mg, 200 mg, oral, BID, Tonya Lerner NP, 200 mg at 10/10/24 0820 ondansetron ODT (Zofran-ODT) disintegrating tablet 4 mg, 4 mg, oral, q8h PRN, 4 mg at 10/09/24 2239 OR ondansetron HCl (PF) (Zofran) injection 4 mg, 4 mg, intravenous, q6h PRN, Tonya Lerner NP oxyCODONE (Roxicodone) immediate release tablet 5 mg, 5 mg, oral, q4h PRN, Tonya Lerner NP, 5 mg at 10/10/24 1419 pantoprazole (ProtoNix) EC tablet 40 mg, 40 mg, oral, Daily before breakfast, Tonya Lerner NP, 40 mg at 10/09/24 0651 sennosides-docusate sodium (Mary Lou-Colace) 8.6-50 mg per tablet 1 tablet, 1 tablet, oral, Daily PRN, Tonya Lerner NP, 1 tablet at 10/10/24 0820 simvastatin (Zocor) tablet 20 mg, 20 mg, oral, Nightly, Tonya Lerner NP, 20 mg at 10/09/24 2230 tiZANidine (Zanaflex) tablet 4 mg, 4 mg, oral, Nightly, Tonya Lerner NP, 4 mg at 10/09/24 2230 vancomycin 1.75 gram/350 mL piggyback 1.75 g, 1.75 g, intravenous, q12h, Tonya Lerner NP, Stopped at 10/10/24 1113 Social History Socioeconomic History Marital status: Spouse name: Not on file Number of children: Not on file Years of education: Not on file Highest education level: Not on file Occupational Histor (more content not included)... [facility] 10-10-2024 Note Physical Therapy Physical Therapy Treatment Patient Name: Matty Garces : 1970 Today's Date: 10/10/2024 10/10/24 Time Calculation Start Time 1339 Stop Time 1412 Time Calculation (min) 33 min PT Therapeutic Procedures Time Entry Therapeutic Activity Time Entry 21 Therapeutic Exercise Time Entry 12 Patient Active Problem List Diagnosis Non-ischemic cardiomyopathy (CMS/HCC) Diastolic dysfunction with chronic heart failure (CMS/HCC) Benign hypertensive cardiomyopathy with heart failure (CMS/HCC) Chronic combined systolic and diastolic congestive heart failure, NYHA class 2 (CMS/HCC) Fall at home, initial encounter Closed fracture of right fibula and tibia HTN (hypertension) PATEL (obstructive sleep apnea) Gastroesophageal reflux disease Obese Left leg cellulitis Anxiety disorder Open wound of left great toe Cellulitis of left leg 10/10/24 1339 PT Last Visit PT Received On 10/10/24 Response to Previous Treatment Patient with no complaints from previous session. General Family/Caregiver Present No Subjective I don't want to be in the chair or the bed, I just want to go home. Pt laying flat in bed with RLE elevated upon entry. Agreeable to participate and stay in chair at end of session. Activity Tolerance Endurance Stage III Activity Tolerance Comments Pt tolerated exercises, bed mobility, EOB sitting, ambulation and transfers this date with increased RLE pain. Precautions LE Weight Bearing Status Right;WBAT (No wt bearing status noted for L LE/foot wound. Pt reports he has an off-loading shoe at home, but does not wear it ( it's a trip hazard ). Reports he does not put as much pressure on the ball of his foot as he does on the heel.) Medical Precautions fall risk, telmetery Pain Assessment Pain Assessment ( I don't like to rate my pain on that scale. Increased pain in RLE, does not rate.) Cognition Arousal/Alertness Appropriate responses to stimuli Orientation Level Oriented X4 Following Commands Follows one step commands with increased time;Follows one step commands with repetition Safety Judgment Decreased awareness of need for safety Awareness of Errors Assistance required to identify errors made Deficits Decreased awareness of deficits Attention Span Attends with cues to redirect Problem Solving Assistance required to identify errors made;Assistance required to generate solutions;Assistance required to implement solutions Communication Intact Cognition Comments Exhibits tangential speech, cues to redirect. Exhibits decreased insight to deficits and safety. Pt states he does not ask for pain meds and tries to stay away from them so he doesn't seem drug seeking. Very little eye contact. General Assessment Skin Integrity redness noted on distal R LE with areas marked Edema R LE moderate edema Therapeutic Exercise Therapeutic Exercise Activity 1 RLE AAROM SLR, SKTC x10 reps to strengthen and improve ease of mobility Therapeutic Exercise Activity 2 RLE AROM LAQs, seated marches, passive calf stretch Static Sitting Balance Static Sitting-Balance Support Feet supported Static Sitting-Level of Assistance Distant supervision Static Sitting-Comment/Number of Minutes untimed at EOB Dynamic Sitting Balance Dynamic Sitting-Balance Support Feet supported Dynamic Sitting-Balance Forward lean;Lateral lean;Reaching for objects Dynamic Sitting Balance-Level of Assistance Close supervision Dynamic Sitting-Comments no LOB Static Standing Balance Static Standing-Balance Support Right upper extremity supported;Left upper extremity supported;With device (RW) Static Standing-Level of Assistance Contact guard Static Standing-Comment/Number of Minutes CGA for safety, pt reports ~20% wt bearing into RLE, increased reliance into RW Dynamic Standing Balance Dynamic Standing-Balance Support Right upper extremity supported;Left upper extremity supported;With device (RW) Dynamic Standing Balance-Level of Assistance Contact guard;Minimum assistance Dynamic Standing-Comments CGA -> Min A for stability with ambulation Ambulation Ambulation Yes Ambulation 1 Surface 1 Level tile Device 1 Rolling walker Assistance 1 Contact guard;Minimum assistance;Moderate verbal cues Quality of Gait 1 RLE externally rotates and ocassional does not stay within WILFREDO of RW, reports wt bearing ~20% into RLE, decreased stance time RLE, step-to gait pattern, unsteady, x1 LOB requiring Min A to stabilize Comments/Distance (ft) 1 ~26' difficulty with turns Bed Mobility Bed Mobility Yes Bed Mobility 1 Bed Mobility From 1 Supine Bed Mobility Type 1 To Bed Mobility to 1 Short sit Level of Assistance 1 Close supervision Bed Mobility Comments 1 Completes with bed flat, requires increased time/effort Transfers Transfer Yes Transfer 1 Transfer From 1 Bed Transfer Type 1 To Transfer to 1 Stand Technique 1 S (more content not included)... [facility] 10-10-2024 Note . Pharmacy Dosing Service - Vancomycin Daily IVent Vancomycin Day 3 of empiric therapy Indication: complicated skin and soft tissue infection Target: AUC 400-600 mg*hr/L and trough 10-20 mcg/mL Other Antimicrobial Regimens: cefepime -Antimicrobial agents have appropriate automatic stop dates? yes -Missed administrations? no -New Microbiology results? no -Renal function stable? yes -Date of last level evaluation? 10/08 Lab Results Component Value Date WBC 7.31 10/08/2024 WBC 10.65 (H) 09/28/2024 WBC 10.21 09/27/2024 Lab Results Component Value Date BUN 10 10/08/2024 BUN 20 09/28/2024 BUN 17 09/27/2024 CREATININE 0.96 10/08/2024 CREATININE 0.92 09/28/2024 CREATININE 0.89 09/27/2024 Vancomycin Tr Date/Time Value Ref Range Status 10/10/2024 05:49 AM 19.2 5.0 - 20.0 ug/mL Final Plan -Continue current regimen of vancomycin 1750 mg every 12 hours - Check levels if therapy expected to continue after 5 days. -Check BUN/SCr daily Altaf Martin, PharmD, 10/09/24 [facility] 10-09-2024 Note Occupational Therapy Occupational Therapy Evaluation Patient Name: Matty Garces : 1970 Today's Date: 10/09/2024 Time in:1504 Time out: 1526 Present Illness History: 54 y/o M presented from [facility] with R LE cellulitis. Patient was recently admitted for R LE tib/fib fracture s/p closed insertion IMN 09/24/2024. Patient is WBAT R LE. General Subjective: Lets get this done, I will behave pleasant and cooperative OT Diagnosis: Decreased functional status and independence with ADLs Family/Caregiver Present: No Patient Active Problem List Diagnosis Non-ischemic cardiomyopathy (CMS/HCC) Diastolic dysfunction with chronic heart failure (CMS/HCC) Benign hypertensive cardiomyopathy with heart failure (CMS/HCC) Chronic combined systolic and diastolic congestive heart failure, NYHA class 2 (CMS/HCC) Fall at home, initial encounter Closed fracture of right fibula and tibia HTN (hypertension) PATEL (obstructive sleep apnea) Gastroesophageal reflux disease Obese Left leg cellulitis Anxiety disorder Open wound of left great toe Cellulitis of left leg Past Medical History: Diagnosis Date Hypertension Past Surgical History: Procedure Laterality Date ABDOMINAL SURGERY FRACTURE SURGERY Precautions Precautions LE Weight Bearing Status: Right, WBAT Medical Precautions: fall risk, IV Pain Pain Assessment Pain Assessment: 0-10 Pain Score: 4 Pain Type: Acute pain Pain Location: Leg Pain Orientation: Lower Cognition Cognition Arousal/Alertness: Appropriate responses to stimuli Orientation Level: Oriented to person, Oriented to situation Following Commands: Follows one step commands with increased time, Follows one step commands with repetition Safety Judgment: Decreased awareness of need for assistance, Decreased awareness of need for safety Awareness of Errors: Assistance required to identify errors made, Assistance required to correct errors made Deficits: Decreased awareness of deficits Attention Span: Appears intact Problem Solving: Assistance required to generate solutions, Assistance required to identify errors made Communication: Intact General Assessment General Assessment Hearing: WFL. Skin Integrity: redness noted on distal R LE with areas marked Edema: R LE moderate edema Hand Dominance: Right Home Living Home Living Type of Home: House Lives With: Spouse Home Adaptive Equipment: Walker rolling, Wheelchair-manual, Crutches Home Layout: Two level, Full bath main level (reports he has first floor guest room with full bathroom) Home Access: Ramped entrance Bathroom Shower/Tub: Tub/shower unit Bathroom Toilet: Standard Bathroom Equipment: Grab bars in shower, Hand-held shower Prior Level of Function Prior Function Level of George: Independent with ADLs and functional transfers, Independent with homemaking with ambulation Prior Functional Mobility: Independent without device Receives Help From: Family ADL Assistance: Independent Homemaking Assistance: Independent Prior IADLs IADL History Homemaking Responsibilities: Yes Static Sitting Balance Static Sitting Balance Static Sitting-Balance Support: Feet supported Static Sitting-Level of Assistance: Distant supervision Static Sitting-Comment/Number of Minutes: unlimited Dynamic Sitting Balance Dynamic Sitting Balance Dynamic Sitting-Balance Support: Feet supported Dynamic Sitting-Balance: Lateral lean, Forward lean, Reaching for objects Dynamic Sitting Balance-Level of Assistance: Close supervision Static Standing Balance Static Standing Balance Static Standing-Balance Support: With device (RW) Static Standing-Level of Assistance: Close supervision Dynamic Standing Balance Dynamic Standing Balance Dynamic Standing-Balance Support: With device (RW) Dynamic Standing-Balance: Forward lean, Lateral lean, Reaching for objects Dynamic Standing Balance-Level of Assistance: Contact guard ADL ADL Eating Assistance: Independent Grooming Assistance: Stand by UE Dressing Assistance: Stand by (doffing gown seated EOB) LE Dressing Assistance: Maximal (donning socks seated EOB) Bed Mobility Bed Mobility Bed Mobility: Yes Bed Mobility 1 Bed Mobility From 1: Supine Bed Mobility Type 1: To and from Bed Mobility to 1: Short sit Level of Assistance 1: Close supervision Transfers Transfers Transfer: Yes Transfer 1 Transfer From 1: Bed Transfer Type 1: To and from Transfer to 1: Stand Technique 1: Sit to stand, Stand to sit Transfer Device 1: rolling walker Transfer Level of Assistance 1: Close supervision Objective General Assessments Activity Tolerance Ambulation comments: Patient tolerated functional mobility with RW from EOB to doorway, then returned to seated EOB. Endurance: Stage III Activity Tolerance Comments: Patient tolerated dressing tasks, bed mobility, transfers and fu (more content not included)... [facility] 10-09-2024 Note 10/09/24 0909 Admission Assessment Questions Verify insurance with patient [...] Status Interested Does the patient have a welfare case worker assigned to them through their insurance? No Living Arrangement (Current/Prior to Hospitalization) Private residence (lives with ) Does the patient have history of C or SNF? Yes (Active with [facility]) Assistive Device Wheelchair;Bedside Commode;Walker Patient's goal for discharge Home with [facility] Was patient reminded that goal for discharge is 11am? No Does the patient have transportation at discharge? Yes Type of Residence Private residence;Home care staff Is PT/OT appropriate? Yes Is PT/OT ordered? Yes Is SW consult appropriate? Yes Is SW consult ordered? Yes Do you understand the benefits of MyChart? Yes Were you able to send link and activate MyChart? No [facility] 10-09-2024 Note Hospital Medicine Daily Progress Note - 10/09/2024 12:13 PM; Room: 6136/6136- Admission: 10/08/2024 5:47 AM; Length of stay: 1 days THE HOSPITALIST TEAM PREFERS TO USE [employer] CHAT FOR NON-URGENT COMMUNICATION 7AM-7PM. IF I DO NOT RESPOND WITHIN 20 MINUTES OR URGENT MATTERS, PLEASE CALL THROUGH THE [employer]PECTING OBSERVER HELPER. FROM 7PM-7AM, PLEASE PAGE [phone](COVR). Code Status: Full Code Barriers to Discharge: Wound/Vascular eval Expected Discharge Date: 1-2 days Discharge Destination: home Overview Patient is seen for evaluation and management of LLE wound and cellulitis. Subjective Patient seen and examined. patient does appear uncomfortable also very lethargic. And communicate briefly and apologizes for feeling so tired. Will drift off in the middle of conversation. Unfortunately review of systems very limited Physical Exam Visit Vitals BP 119/82 (BP Location: Right arm, Patient Position: Lying) Pulse 78 Temp 36.5 ???C (97.7 ???F) (Oral) Resp 18 Intake/Output Summary (Last 24 hours) at 10/09/2024 1213 Last data filed at 10/09/2024 1205 Gross per 24 hour Intake 1140 ml Output 2750 ml Net -1610 ml Estimated body mass index is 30.42 kg/m??? as calculated from the following: Height as of this encounter: 1.88 m (6' 2 ). Weight as of this encounter: 107 kg (236 lb 14.4 oz). Constitutional: mild distress, lethargic, obese Eyes: EOMI, normal conjunctiva Mouth: Moist, no lesions CV: RRR, normal S1-S2, no murmurs Resp: CTA, no crackles or wheezing Abd: Soft, non-tender Extremities: RLE erythematous and edematous, LLE wrapped; media reviewed Skin : Warm, dry Neuro: lethargic, no focal deficits Psych: Appropriate mood and affect Active Inpatient Problems Principal Problem: Left leg cellulitis Active Problems: HTN (hypertension) Anxiety disorder Open wound of left great toe Cellulitis of left leg Chronic combined systolic and diastolic congestive heart failure, NYHA class 2 (CMS/HCC) Closed fracture of right fibula and tibia Assessment and Plan Left leg cellulitis Open wound of left great toe -Continue vanco and zosyn -BCX NGTD -Consult Vascular/Wound -Likely can discharge on antibiotics unless debridement warranted HTN -Continue home modafinil, coreg Anxiety disorder -Continue home citalopram, clonazepam Chronic combined systolic and diastolic congestive heart failure, NYHA II -Not in exacerbation -Continue home furosemide, coreg, asa Closed fracture of right fibula and tibia -Ortho following, no intervention -WBAT VTE Prophylaxis: Heparin subcutaneous Scheduled Meds amantadine, 100 mg, oral, BID amLODIPine, 5 mg, oral, Daily aspirin, 81 mg, oral, BID carvedilol, 25 mg, oral, BID with meals cefepime, 2 g, intravenous, q8h citalopram, 20 mg, oral, Daily clonazePAM, 0.5 mg, oral, Nightly doxazosin, 8 mg, oral, Nightly furosemide, 20 mg, oral, Daily gabapentin, 600 mg, oral, BID modafinil, 200 mg, oral, BID pantoprazole, 40 mg, oral, Daily before breakfast simvastatin, 20 mg, oral, Nightly tiZANidine, 4 mg, oral, Nightly vancomycin, 1.75 g, intravenous, q12h Pertinent Investigations Hematology: Results from last 7 days Lab Units 10/09/24 0617 10/08/24 0938 10/08/24 0735 CRP mg/L -- 26.6* -- WBC AUTO 10*3/uL 8.22 -- 7.31 HEMOGLOBIN g/dL 12.8* -- 12.4* HEMATOCRIT % 42.0 -- 40.9 MCV fL 88.2 -- 88.0 PLATELETS AUTO 10*3/uL 240 -- 231 Chemistry: Results from last 7 days Lab Units 10/09/24 0617 10/08/24 0735 SODIUM mmol/L 137 141 POTASSIUM mmol/L 4.0 4.2 CHLORIDE mmol/L 96* 99 CO2 mmol/L 36* 37* BUN mg/dL 7 10 CREATININE mg/dL 0.98 0.96 GLUCOSE mg/dL 90 83 MAGNESIUM mg/dL -- 1.8* CALCIUM mg/dL 9.4 9.5 Results from last 7 days Lab Units 10/08/24 0735 AST U/L 19 ALT U/L 14 ALK PHOS U/L 130* BILIRUBIN TOTAL mg/dL 0.7 Historical Values: (Includes values prior to this admission) No results found for: PREALBUMIN , TSH , T3FREE , FREET4 , CORTISOL , FEV1 , ZDQ1QIQ , DLCO , RVSP , HDL , LDL No results found for: [id number] , IRON , TIBC , C3 , C4 , JEROME , CANCA , ASO , PSA , CEA , CA125 , CA199 , AFP , CA153 Imaging XR tibia fibula 2 views right Narrative: XR TIBIA FIBULA 2 VIEWS RIGHT 10/08/2024 8:43 AM CLINICAL INDICATIONS: Follow-up tibia fracture and hardware fixation COMPARISON: September 2024 FINDINGS: Comminuted fracture of the distal third tibia diaphysis noted. Intramedullary wendy with proximal distal screw fixation present. No significant callus formation or bony bridging at this early point. Minor residual angulation and fragmentation of the fibular fracture. Hardware appears uncomplicated. Impression: * Stable alignment and appearance of hardware fixation tibia fracture. Electronically signed: Scott Lynn. Discharge Planning Expected Discharge Disposition: [place] [facility] [place] Discharge Recommendations: Home PT Signed C (more content not included)... [facility] 10-09-2024 Note Physical Therapy Physical Therapy Re-Evaluation Patient Name: Matty Garces : 1970 Today's Date: 10/09/2024 General Subjective: Attempted to see pt earlier today ([phone]) for mobility assessment. Pt deferred d/t pain increasing. Discussed with pt utilizing pain meds to improve mobility tolerance (per RN, was trying to avoid taking pain pills.) Pt agreeable to take pain medication and attempting PT later. RN notified. Returned at this time with pt agreeable to PT. Pt amb in room and ford. Returned to supine in bed for elevation of R LE and stretching of ankle. Call light given. PT Diagnosis: Decreased functional mobility s/p recent IMN R tibia with cellulitis Patient Active Problem List Diagnosis Non-ischemic cardiomyopathy (CMS/HCC) Diastolic dysfunction with chronic heart failure (CMS/HCC) Benign hypertensive cardiomyopathy with heart failure (CMS/HCC) Chronic combined systolic and diastolic congestive heart failure, NYHA class 2 (CMS/HCC) Fall at home, initial encounter Closed fracture of right fibula and tibia HTN (hypertension) PATEL (obstructive sleep apnea) Gastroesophageal reflux disease Obese Left leg cellulitis Anxiety disorder Open wound of left great toe Cellulitis of left leg Past Medical History: Diagnosis Date Hypertension Past Surgical History: Procedure Laterality Date ABDOMINAL SURGERY FRACTURE SURGERY Precautions Precautions LE Weight Bearing Status: Right, WBAT (No wt bearing status noted for L LE/foot wound. Pt reports he has an off-loading shoe at home, but does not wear it ( it's a trip hazard ). Reports he does not put as much pressure on the ball of his foot as he does on the heel.) Medical Precautions: fall risk, IV Pain Pain Assessment Pain Assessment: 0-10 Pain Score: 4 Pain Type: Acute pain Pain Location: Leg Pain Orientation: Right, Lower Pain Interventions: Elevated Cognition Cognition Arousal/Alertness: Appropriate responses to stimuli Following Commands: Follows one step commands without difficulty Safety Judgment: Good awareness of safety precautions Awareness of Errors: Assistance required to correct errors made, Assistance required to identify errors made Deficits: Decreased awareness of deficits Attention Span: Attends with cues to redirect Communication: Intact General Assessment General Assessment Hearing: Appears functional. Skin Integrity: Surgical sites- noted stitches in place. Erythema lower leg. Edema: R LE edema improved per pt. General Assessments Activity Tolerance Endurance: Stage III Stage III (METs 2.0-3.0) - Sitting to Standin-20 mins Sensation Light Touch: No apparent deficits Coordination Movements are Fluid and Coordinated: Yes Postural Control Posture Assessment: Forward flexed at waist in standing. Postural Control: Within Functional Limits Static Sitting Balance Static Sitting-Balance Support: Right upper extremity supported, Left upper extremity supported, Feet supported Static Sitting-Level of Assistance: Distant supervision Dynamic Sitting Balance Dynamic Sitting-Balance Support: Right upper extremity supported, Left upper extremity supported, Feet supported Dynamic Sitting-Balance: Forward lean Dynamic Sitting Balance-Level of Assistance: Close supervision Static Standing Balance Static Standing-Balance Support: Right upper extremity supported, Left upper extremity supported, With device Static Standing-Level of Assistance: Contact guard Dynamic Standing Balance Dynamic Standing-Balance Support: Right upper extremity supported, Left upper extremity supported, With device Dynamic Standing Balance-Level of Assistance: Contact guard, Minimum assistance Functional Assessments Bed Mobility Bed Mobility: Yes Bed Mobility 1 Bed Mobility From 1: Supine Bed Mobility Type 1: To and from Bed Mobility to 1: Short sit Level of Assistance 1: Close supervision Transfers Transfer: Yes Transfer 1 Transfer From 1: Sit, Bed Transfer Type 1: To and from Transfer to 1: Stand Technique 1: Sit to stand, Stand to sit Transfer Device 1: rolling walker Transfer Level of Assistance 1: Contact guard Ambulation Ambulation: Yes Ambulation 1 Surface 1: Level tile Device 1: Rolling walker Assistance 1: Contact guard, Minimum assistance Quality of Gait 1: Pt with occ. LOB during amb with CG/min assist to correct. Cues to push walker instead of picking it up. Also, note R LE externally rotated during amb- cues given to turn foot more forward. Step-to gait with minimal wt bearing on R LE d/t pain. Comments/Distance (ft) 1: ~48 Stairs Stairs: No Extremity Assessments RLE Assessment RLE Assessment: (Able to demonstrate anti-gravity strength at hip to lift leg in/out of bed. Decreased ankle ROM- to neutral with PROM. No DF noted at this time.) Therapeutic Exercise Therapeutic Exercise Therape (more content not included)... [facility] 10-09-2024 Note . Pharmacy Dosing Service - Vancomycin Daily IVent Vancomycin Day 2 of empiric therapy Indication: complicated skin and soft tissue infection Target: AUC 400-600 mg*hr/L and trough 10-20 mcg/mL Other Antimicrobial Regimens: cefepime -Antimicrobial agents have appropriate automatic stop dates? yes -Missed administrations? no -New Microbiology results? no -Renal function stable? yes -Date of last level evaluation? 10/08 Lab Results Component Value Date WBC 7.31 10/08/2024 WBC 10.65 (H) 09/28/2024 WBC 10.21 09/27/2024 Lab Results Component Value Date BUN 10 10/08/2024 BUN 20 09/28/2024 BUN 17 09/27/2024 CREATININE 0.96 10/08/2024 CREATININE 0.92 09/28/2024 CREATININE 0.89 09/27/2024 Plan -Continue current regimen of vancomycin 1750 mg every 12 hours -Plan to check serum peak and trough levels at steady state -Check BUN/SCr daily Altaf Martin, PharmD, 10/09/24 [facility] 10-09-2024 Note Orthopaedic Surgery Orthopaedic Surgery Progress Note Date: 10/09/2024 Surgery: - R tibial IMN on 09/24/24 SUBJECTIVE: NAEON, pain controlled, denies CP/SOB. Patient has been receiving IV cefepime and vancomycin. States his pain is improving.Feel his leg is less swollen. Denies joint pain in the knee or ankle. Denies subjective fevers, OBJECTIVE BP 125/71 (BP Location: Right arm, Patient Position: Lying) Pulse 74 Temp 36.7 ???C (98.1 ???F) (Oral) Resp 17 Ht 1.88 m (6' 2 ) Wt 134 kg (295 lb) SpO2 96% BMI 37.88 kg/m??? General: No acute distress, alert and cooperative with exam MSK: Right LE - erythema overlying anterior midshaft tibia region marked out on skin. and Surgical incisions appear to be intact with good healing. No clear sign of infection involving the incisions - ROM: Reasonable painless postoperative ROM of the knee and ankle - Compartments of thigh and leg are soft and compressible - SILT in superficial peroneal, deep peroneal, sural, saph, tibial nerve distributions - Motor function intact to EHL/FHL/GS/TA - 5/5 strength to dorsi and plantar flexion, great toe extension/flexion - Foot is WWP with BCR x 5, 1+ DP pulse Labs Lab Results Component Value Date WBC 7.31 10/08/2024 HGB 12.4 (L) 10/08/2024 HCT 40.9 10/08/2024 MCV 88.0 10/08/2024 PLT 231 10/08/2024 Lab Results Component Value Date GLU 124 (H) 01/31/2019 CALCIUM 9.5 10/08/2024 NA 141 10/08/2024 K 4.2 10/08/2024 CO2 37 (H) 10/08/2024 CL 99 10/08/2024 BUN 10 10/08/2024 CREATININE 0.96 10/08/2024 Lab Results Component Value Date INR 1.28 (H) 09/23/2024 Imaging: XR tibia fibula 2 views right Result Date: 10/08/2024 * Stable alignment and appearance of hardware fixation tibia fracture. Electronically signed: Scott Lynn. No CT results found for the past 24 hours No MRI results found for the past 24 hours ASSESSMENT:Matty Garces is a 54 y.o. male with concern for infection to the right lower extremity. Patient is 2 weeks s/p r tibial imn with Dr Hahn. Appears to have superficial cellulitis of the right lower leg. Plan: No plans for operative intervention at this time WBAT RLE Abx: Per primary, recommend broad spectrum Trend ESR and CRP DVT ppx: Per primary team Dressing: Ok to shower, running water only, no submerging incision Ice, elevate extremity PT/OT as able Multimodal pain control Diet: Regular as tolerated Vitamin D / Calcium supplementation Will continue to follow, remainder of care per primary Luis Felipe Rivas MD Orthopaedic Surgery, PGY-2 Ortho Pager [phone] 10/09/24 6:38 AM I am available via [employer] 6a-6p. May contact the on-call resident with any concerns via the Orthopaedic pager at any time. [facility] 10-08-2024 Note Case was discussed w [email or web address] the [facility] on 10/08/2024. I agree with the history, physical, assessment, and plan of care. I discussed the findings and therapeutic plan. I agree with the documentation, except for any updates below. Fabiola Wade DO [facility] 10-08-2024 Note Physical Therapy Ashwini lindsey Patient Name: Matty Garces Today's Date: 10/08/2024 Admit Date: 10/08/2024 Time In: 1:20pm Time Out: 1:45pm Cumulative minutes: 25 minutes Billed minutes: 25 minutes; 15 min eval; 10 min therapeutic exercise to review HEP x10 reps. History of present illness Per H&P: Matty Garces is an 54 y.o. male who came from [facility] with LLE cellulitis. Patient has PMH of hypertension, diastolic heart failure, GERD, anxiety. He recently was admitted here and had right leg tib/fib fracture and seen by our ortho team and had closed insertion with intramedullary wendy on 09/24/24 and was discharged home. He reports he went to [place] ER due to increased pain, swelling and redness to his incisions. He denies any fevers, no chills, no nausea or vomiting. He does not have any drainage from any incisions. Per hospital course note from 09/23/24-09/28/24 Matty Garces is a 54 y.o. y/o [...] patient refused this stating he already has C set up and wants to go home. Vascular surgery was consulted for a chronic left foot ulcer. Pulmonary navigator was consulted for PATEL and recommended OP sleep study. On day of discharge, Trauma team was informed at approximately 1730 per [facility] that patient went into a-flutter and sustained for approximately 2 hours from approximately 4743-3446. Trauma team ordered a STAT ECG and inpatient consultation to cardiology, Discharge orders were rescinded with plan for patient to stay one additional night for cardiology evaluation. This plan was discussed with patient with and son in room. Patient denied a history of arrhythmia including a-flutter and states that he would like to leave tonight AMA. Complications of this and other arrhythmias were discussed with patient and family in room including but not limited to heart attack, stroke, and . Patient note understanding with the risks associated with an untreated arrhythmia and still state that he wants to leave tonight, AMA AMA paperwork reviewed and signed, patient left hospital 09/28/24 Currently: Spoke to RN regarding WB status: NWB R LE at this time until clearance from ortho on further WB progressions. Unclear L LE status, he does have chronic wound in L foot plantar great toe region. He was getting home PT/OT/wound care prior to this admission. Patient very restless in bed upon PT arrival, he recently had pain medications and reports this reduced pain from 8/10 to 7/10 however continues to have high pain levels and is not yet willing to try to get up out of bed. He is agreeable to trying this tomorrow if pain is reduced, deferred full mobility assessment to bed evaluation today, will further assess as able. Activity: per RN, ok to see patient. Activity orders: out of bed 3 times daily, NWB R LE unless okay by ortho, unclear L LE WB status. Patient agreeable to therapy. At end of session patient with call light in reach and resting supine R LE elevated in bed. PMH/PSH per chart Patient Active Problem List Diagnosis Non-ischemic cardiomyopathy (CMS/HCC) Diastolic dysfunction with chronic heart failure (CMS/HCC) Benign hypertensive cardiomyopathy with heart failure (CMS/HCC) Chronic combined systolic and diastolic congestive heart failure, NYHA class 2 (CMS/HCC) Fall at home, initial encounter Closed fracture of right fibula and tibia HTN (hypertension) PATEL (obstructive sleep apnea) Gastroesophageal reflux disease Obese Left leg cellulitis Anxiety disorder Open wound of left great toe Past Medical History: Diagnosis Date Hypertension Past Surgical History: Procedure Laterality Date ABDOMINAL SURGERY FRACTURE SURGERY Prior level of function Between surgery and this admission patient was using RW and WBAT and doing quite well he states that when pain increased he was needing to rely on w/c as he could not tolerate weight on R LE. He states he also has crutches he can use. Prior to injury he was independent with ADLs, states he almost never drives, and was not working. does most of driving/grocery shopping. Home set-up Patient lives with spouse in a 2 story home with 5 small steps to enter with 1 handrail. Bedroom location: 1st floor set-up. Bathroom location: 1st floor full bath with tub/shower combination. Adaptive Equipment rolling walker, shower chair, grab bars in shower, manual wheelchair, crutches. Pain 7/10 pain R LE. Orientation Patient alert and oriented x4.. Precautions IV, telemetry, fall risk, R LE elevated, L foot wrapped, NWB R LE until clear by ortho, L LE unclear WB status. Objective assessment (more content not included)... [facility] 10-08-2024 Note Pharmacy Dosing Serv ice - Vancomycin Initial Consult Note Pharmacy has been consulted for the dosing and evaluation of Drug: Vancomycin Indication: complicated skin and soft tissue infection AUC 400-600 mg*hr/L and trough 10-20 mcg/mL Other Antimicrobial Regimens: cefepime Labs and Renal Function Total body weight: 134 kg (295 lb) [place] body weight: 82.2 kg (181 lb 3.5 oz) Adjusted ideal body weight: 103 kg (226 lb 11.7 oz) Body mass index is 37.88 kg/m???. Lab Results Component Value Date WBC 7.31 10/08/2024 WBC 10.65 (H) 09/28/2024 WBC 10.21 09/27/2024 Lab Results Component Value Date BUN 10 10/08/2024 BUN 20 09/28/2024 BUN 17 09/27/2024 CREATININE 0.96 10/08/2024 CREATININE 0.92 09/28/2024 CREATININE 0.89 09/27/2024 CrCl or renal function: 125 mL/min I/O: I/O last 3 completed shifts: In: - (0 mL/kg) Out: 500 (3.7 mL/kg) [Urine:500 (0.1 mL/kg/hr)] Weight: 133.8 kg Estimated Pharmacokinetic Parameters: Weight used to calculate CrCl and Ke: adjusted body weight (due to obesity) Pharmacokinetic Parameters: Vd: 66.9 L Ke: 0.109 hr -1 T1/2: 6.3 hr Microbiology: -Blood cultures pending -MRSA Nares ordered? N/A Assessment / Comments: - 54 year old male from [place] with LLE cellulitis -Had intramedullary wendy placed on 09/24/24 but experienced increased pain, swelling, and redness -Current risk factors for nephrotoxicity: None -Comments on renal function / baseline serum creatinine: baseline Scr ~0.8-1 -Recent vancomycin history: Yes Plan: -Start vancomycin 2000 mg once, followed by vancomycin 1750 mg every 12 hours for a predicted AUC of 477.8 mg*hr/L and trough of 12 mcg/mL -Plan to check serum peak and trough levels at steady state -Check BUN/SCr daily -Pharmacy will follow up daily on culture and sensitivity results and renal function -Please do not hesitate to contact us with comments or questions Thank you, Altaf Martin, PharmD, 10/08/24 [facility] 10-08-2024 Note Will consult wound care [facility] 10-08-2024 Note Continue vanco and z osyn Ortho following Will get blood cultures [facility] 10-08-2024 Note Continue citalopram, clonazepam [facility] 10-08-2024 Note [facility]afinil, [facility] Not in exacerbation Continue furosemide, coreg, asa [facility] 10-08-2024 Note Ortho following, con cern for possible infection Admit to med surg Activity orders per ortho with LLE Cardiac diet Will get labs this morning and follow up on results Daily bmp and cbc to monitor kidney function, electrolytes, hgb and wbc Case will be discussed with attending physician [facility] 10-08-2024 Note Hospital Medicine History and Physical 10/08/2024 7:26 AM THE HOSPITALIST TEAM PREFERS TO USE [employer] CHAT FOR NON-URGENT COMMUNICATION 7AM-7PM. IF I DO NOT RESPOND WITHIN 20 MINUTES OR URGENT MATTERS, PLEASE CALL THROUGH THE GRAVITY PROSPECTING OBSERVER HELPER. FROM 7PM-7AM, PLEASE PAGE [phone](COVR). Chief Complaint Chief Complaint Patient presents with Cellulitis History of Present Illness Matty Garces is an 54 y.o. male who came from [facility] with LLE cellulitis. Patient has PMH of hypertension, diastolic heart failure, GERD, anxiety. He recently was admitted here and had right leg tib/fib fracture and seen by our ortho team and had closed insertion with intramedullary wendy on 09/24/24 and was discharged home. He reports he went to [place] ER due to increased pain, swelling and redness to his incisions. He denies any fevers, no chills, no nausea or vomiting. He does not have any drainage from any incisions. Review of System and Physical Exam Temp: [36.4 ???C (97.6 ???F)] 36.4 ???C (97.6 ???F) Heart Rate: [86-90] 86 Resp: [10-21] 15 BP: (130-141)/(85-99) 130/86 Physical Exam Vitals reviewed. Constitutional: General: He is awake. He is not in acute distress. Appearance: Normal appearance. He is not ill-appearing. Cardiovascular: Rate and Rhythm: Normal rate and regular rhythm. Heart sounds: Normal heart sounds. Pulmonary: Effort: Pulmonary effort is normal. No tachypnea, accessory muscle usage or respiratory distress. Abdominal: General: Bowel sounds are normal. There is no distension. Palpations: Abdomen is soft. Tenderness: There is no abdominal tenderness. Skin: Comments: Erythema,swelling, incision sites are intact from previous surgery Neurological: Mental Status: He is alert and oriented to person, place, and time. Mental status is at baseline. Psychiatric: Attention and Perception: Attention normal. Mood and Affect: Mood normal. Speech: Speech normal. Behavior: Behavior is cooperative. Review of Systems Constitutional: Negative for activity change, appetite change, diaphoresis and fever. HENT: Negative. Eyes: Negative. Respiratory: Negative for shortness of breath. Cardiovascular: Negative for chest pain. Gastrointestinal: Negative. Negative for abdominal distention. Endocrine: Negative. Genitourinary: Negative. Musculoskeletal: Positive for joint swelling (knee, ankle). Skin: Negative. Allergic/Immunologic: Negative. Neurological: Negative. Hematological: Negative. Psychiatric/Behavioral: Negative. Assessment and Plan Assessment & Plan Left leg cellulitis Continue vanco and zosyn Ortho following Will get blood cultures Open wound of left great toe Will consult wound care HTN (hypertension) Continue modafinil, coreg Anxiety disorder Continue citalopram, clonazepam Chronic combined systolic and diastolic congestive heart failure, NYHA class 2 (CMS/[facility]) Not in exacerbation Continue furosemide, coreg, asa Closed fracture of right fibula and tibia Ortho following, concern for possible infection Admit to med surg Activity orders per ortho with LLE Cardiac diet Will get labs this morning and follow up on results Daily bmp and cbc to monitor kidney function, electrolytes, hgb and wbc Case will be discussed with attending physician VTE Prophylaxis: Will start AFTER PROCEDURE; potential wash out with ortho ----- Focus of this inpatient stay will remain on problems that need acute care setting for care. We will review available studies and will order additional labs, imaging and other studies as appropriate. As needed medicines are ordered as appropriate. VTE Prophylaxis will be ordered as appropriate. Please see above for management plan for individual hospital problems. Home medications are reviewed and will be continued as appropriate. Patient will be continued to be followed during this hospital stay by a member of [facility]. Past Medical History Past Medical History: Diagnosis Date Hypertension Past Surgical History Past Surgical History: Procedure Laterality Date ABDOMINAL SURGERY FRACTURE SURGERY Social History Social History Socioeconomic History Marital status: Spouse name: Not on file Number of children: Not on file Years of education: Not on file Highest education level: Not on file Occupational History Not on file Tobacco Use Smoking status: Never Smokeless tobacco: Never Vaping Use Vaping status: Never Used Substance and Sexual Activity Alcohol use: Yes Comment: monthly Drug use: Not Currently Types: Marijuana Sexual activity: Not Currently Other Topics Concern Not on file Social History Narrative Not on file Social Determinants of Health Financial Resource Strain: Low Risk (09/23/2024) Overall Financial Resource Strain (CARDIA) Difficulty of Paying Living Expenses: Not very hard Food Insecurity: No Food Insecurity (more content not included)... [facility] 10-02-2024 Telephone encounter Note Provigil refill request to [facility] sent to provider. Last appt. 07/03/24 [facility] 10-02-2024 Miscellaneous Notes Provigil refill request to [facility] sent to provider. Last appt. 07/03/24 documented in this encounter [facility] 09-28-2024 Note Trauma team informed at approximately 1730 per [facility] that patient went into a-flutter and sustained for approximately 2 hours from approximately 7325-2567. Trauma team ordered a STAT ECG and [...] still state that he wants to leave tonight, AMA AMA paperwork reviewed and signed [facility] 09-28-2024 Note 09/28/24 1537 Home Oxygen Therapy Evaluation Pulse Oximetry on room air at Rest 94 Pulse Ox on room air while walking 96 Patient Qualification for home oxygen Does not qualify for home oxygen this visit (When pt is sleeping, apnea is noted and at times saturation drops but when pt is awake and moving his oxygenation is stable) [facility] 09-28-2024 Note [facility] Trauma Surgery Progress Note Subjective Patient [...] (97.7 ???F) (09/28 1199) Temp Source: Temporal (01/16 1200) Heart Rate: [75-102] 75 (09/28 1200) Resp: [12-26] 25 (09/28 1200) SpO2: [95 %-100 %] 95 % (09/28 1200) Height: -- Weight: [135 kg (296 lb 15.4 oz)] 135 kg (296 lb 15.4 oz) (09/28 035) Kennedy Coma Scale Score: 15 FiO2 (%): [50 [...] Value Ventricular Rate 82 Atrial Rate 82 TN Interval 164 QRS DURATION 92 QT Interval 386 QTC CALCULATION(BAZETT) 450 P Hoyt 61 R-Hoyt 18 T Wave Hoyt 69 Impression Normal sinus rhythm Normal ECG [...] -GI: PO Pantoprazole (GERD) -Bowel regimen: Scheduled mary lou-colace and glycolax : -Is and Os q4hrs MSK: Right tib/fib fracture -Activity: WBAT RLE per ortho -PT/OT eval and treat -Ortho consultation for right comminuted tib/fib fracture. Went to OR 09/24 for fixation. Prophylaxis: -Bowel regimen: Scheduled dulcolax and miralax -DVT: SCDs, Lovenox 40 mg BID Other: -CODE STATUS: Full Dispo: -Medically clear for discharge. -Patient requesting discharge home with [facility], PT/OT recommending walker, commode, and rolling wheelchair. [facility] 09-28-2024 Note Physical Therapy Physical Therapy [...] commode, and recliner (more content not included)... [facility] 09-28-2024 Note Occupational Therapy Occupational Therapy [...] apnea) Gastroesophageal reflux disease Obese Co-tx with COB SAWYER to facilitate purposeful activity, 2/2 high fall risk, impaired dyn standing balance & act tolerance, poor safety awareness, & poor safety awareness with STS, transfers, & functional ambulation; To maintain safety of patient & staff. 09/28/24 1358 OT Last Visit OT Received On 09/28/24 General Subjective I got my w/c 3rd hand...from my [id number]. Treatment Duration (min) 55 Minutes Response to [...] not maintain precs. General Assessment Hearing mild [place] Skin Integrity ALVARO wrap to RLE, DFU to L great toe Grooming Grooming Level of Assistance Setup Grooming Where Assessed Other (Comment) (sitting on [facility]) Grooming Comments to complete facial care & oral care with cues for continuation, 2/2 perseverance. UE Bathing UE Bathing Level of Assistance Setup UE Bathing Where Assessed Other (Comment) ([facility]) UE Bathing Comments to complete 100% UBB sitting on [facility]. Cues for continuation, 2/2 perseveration. LE Bathing LE Bathing Level of Assistance Contact guard LE Bathing Where Assessed Other (Comment) ([facility]) LE Bathing Comments BLEs bathed sitting on [facility]; Pt stood with device for mary lou-hygiene & required CGA to maintain balance. UE Dressing UE Dressing Level of Assistance Setup UE Dressing Where Assessed Sitting in chair UE Dressing Comments to don gown Toileting Toileting Level of Assistance Contact guard Where Assessed Bedside commode Toileting Comments CGA during mary lou-care post BM, standing at [facility]. Unsteadiness present. Static Sitting Balance Static Sitting-Balance Support Feet supported Static Sitting-Level of Assistance Distant supervision Static Sitting-Comment/Number of Minutes Supervision for safety Dynamic Sitting Balance Dynamic Sitting-Balance Support Feet supported;Unilateral upper extremity supported Dynamic Sitting Balance-Level of Assistance Close supervision Dynamic Sitting-Comments SBA for safety scooting EOB, positioning on [facility] Static Standing Balance Static Standing-Balance Support With device;Right upper extremity supported;Left upper extremity supported Static Standing-Level of Assistance Contact guard Static Standing-Comment/Number of Minutes CGA for safety standing with RW, 2/2 unsteaadiness. Dynamic Standing Balance Dynamic Standing-Balance Support With device;Right upper extremity supported;Left upper extremity supported;Unilateral upper extremity supported Dynamic Standing Balance-Level of Assistance Minimum assistance;Close supervision Dynamic Standing-Comments CGA during mary lou-care & hygiene in stance at [facility] with RW. Add'l SBA for safety. Pt very unsteady with poor awareness. CGA during functional ambulation with device. Cues for safety awareness, & maintaining WB precs. Bed Mobility 1 Bed Mobility From 1 Supine Bed Mobility Type 1 To Bed Mobility to 1 Short sit Level of Assistance 1 Close superv (more content not included)... [facility] 09-28-2024 Note Called [email or web address] m[employer] by phone to check on status of pt's DME (wheelchair, walker, bedside commode). Was advised they did not receive it via [employer] and would need it direct faxed to [phone]. Faxed referral and was advised they will [...] to call . UPDATE 3:05PM- Spoke with [employer] again and was advised the wheelchair could [...] discharge around 6pm tonight. Also spoke with [facility] and was provided w/ fax [phone] to send AVS once ready. UPDATE 4:05PM- Direct faxed final AVS to [facility]. [facility] 09-28-2024 Note [facility] Vascular and Wound Surgery DAILY PROGRESS [...] expressible purulence. No erythema, calor, induration to mary lou-wound. Neurological: General: No focal deficit present. Mental Status: He is alert and oriented to person, place, and time. Mental status is at baseline. Psychiatric: Mood and Affect: Mood normal. Behavior: Behavior normal. Left great toe Labs: Results from last 7 days Lab Units 09/28/2435709/27/2435009/26/2444609/25/2440609/24/24 0355 WBC AUTO 10*3/uL 10.65* 10.21 9.63 14.37* 7.56 HEMOGLOBIN g/dL 13.7 14.0 13.6 14.1 14.1 HEMATOCRIT % 44.4 45.5 43.8 45.4 46.4 PLATELETS AUTO 10*3/uL 208 199 186 205 175 Results from last 7 days Lab Units 09/28/2435709/27/2435009/26/2444609/25/2440609/24/24 0355 SODIUM mmol/L 135* 137 139 134* [...] Unchanged cardiomediastinal silho (more content not included)... [facility] 09-27-2024 Note Discharge Planning: Home with [facility] The patient was accepted by [facility]. DME referral sent to [employer]. The patient would like the DME either delivered to the hospital or his home prior to discharge. [facility] 09-27-2024 Note Occupational Therapy Occupational Therapy Treatment Patient Name: Matty Garces : 1970 Today's Date: 09/27/2024 Time in:1357 Time out:1450 Total time:53 minutes,23 min OT, additional for COB SAWYER [place] provided to maximize safety as progressed [...] max safety as patient stood, patient complete mary lou hygiene UE Dressing UE Dressing Level of [...] etc Transfers 2 (more content not included)... [facility] 09-27-2024 Note Physical Therapy Physical Therapy [...] for lift, balance, (more content not included)... [facility] 09-27-2024 Note Attestation signed by Fahad Rizzo MD at 09/28/2024 7:41 AM Patient seen and examined with trauma team [facility] Trauma Surgery Progress Note Subjective Patient [...] kg (299 lb 2.6 oz) (09/27 338) [place] Coma Scale Score: 15 Intake/Output Summary (Last [...] (H) 65.0 - 75.0 % Base Excess, Diaz 9.2 mmol/L Radiologic studies: No X-ray results found for the past [address] results found for the past 24 hours No MRI results found for the past 24 hours EKG: Encounter Date: 09/23/24 ECG 12 lead Result Value Ventricular Rate 82 Atrial Rate 82 TN Interval 164 QRS DURATION 92 QT Interval 386 QTC CALCULATION(BAZETT) 450 P Hoyt 61 R-Hoyt 18 T Wave Hoyt 69 Impression Normal sinus rhythm Normal ECG [...] acute findings. Respiratory: (more content not included)... [facility] 09-26-2024 Note Per patients romain aaron was to start with Radha Mendenhall [facility] on the day of admit. Referral made as requested. SW following. [facility] 09-26-2024 Note [facility] Vascular and Wound Surgery DAILY PROGRESS NOTE Subjective Patient seen and examined at bedside. No acute events overnight. Vital signs stable. Denies pain to the left ulcer. Patient states he follows regularly with marker assembler at OSH and plans to follow-up with [...] expressible purulence. No erythema, calor, induration to mary lou-wound. Neurological: General: No focal deficit present. Mental Status: He is alert and oriented to person, place, and time. Mental status is at baseline. Psychiatric: Mood and Affect: Mood normal. Behavior: Behavior normal. Labs: Results from last 7 days Lab Units 09/26/24 0447 09/25/24 0407 09/24/24 0355 09/23/24 1212 WBC AUTO 10*3/uL 9.63 14.37* 7.56 10.56 HEMOGLOBIN g/dL 13.6 14.1 14.1 14.5 HEMATOCRIT % 43.8 45.4 46.4 47.8 PLATELETS AUTO 10*3/uL 186 205 175 188 Results from last 7 days Lab Units 09/26/24 0447 09/25/24 0407 09/24/24 0355 09/23/24 1403 SODIUM mmol/L 139 [...] BID simvastatin, 20 mg, oral, Nightly Imaging: [facility] Carotid Artery Duplex Bilateral Narrative: Procedure: [...] oxygen requirements. COMPARISON: (more content not included)... [facility] 09-26-2024 Note Occupational Therapy Occupational Therapy [...] chair at EOS with alarm on with B LE's elevated Objective 2 Cash Register Repairer discussed importance of discharging to facility for continued therapy prior to going home however, pt declines. Pt transfers are currently unsafe with contract writer questioning ability to maintain WB status. OT [...] Other Pt is impulsive during standing/transfer activities. Cash Register Repairer questions pts safety while at home. General [...] and hands on for safety to complete mary lou hygiene. 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 [facility] 09-26-2024 Note Orthopaedic Surgery Orthopaedic Surgery [...] Can be reached at the orthopedic pager: [phone] Luis Felipe Rivas MD 09/26/24 7:24 AM Ortho Pager: [phone] [facility] 09-26-2024 Note [facility] Trauma Surgery Progress Note Subjective Subjective: [...] Objective Objective Vitals: BP: (121-151)/(76-96) 151/81 (09/26 0400) Systolic BP Percentile: -- Diastolic BP Percentile: -- Temp: [36.4 ???C (97.6 ???F)-36.6 ???C (97.9 ???F)] 36.6 ???C (97.9 ???F) (09/25 2014) Temp Source: Oral (09/25 1599) Heart Rate: [61-95] 87 (09/26 399) Resp: [13-25] 18 (09/26 399) SpO2: [86 %-98 %] 96 % (09/26 399) Height: -- Weight: [138 kg (303 lb 9.2 oz)] 138 kg (303 lb 9.2 oz) (09/26 0433) [place] Coma Scale Score: 15 Intake/Output Summary (Last 24 hours) at 09/26/2024 0626 Last data filed at 09/26/2024 0500 Gross [...] Value Ventricular Rate 82 Atrial Rate 82 TN Interval 164 QRS DURATION 92 QT Interval 386 QTC CALCULATION(BAZETT) 450 P Hoyt 61 R-Hoyt 18 T Wave Hoyt 69 Impression Normal sinus rhythm Normal ECG [...] workup -Telemetry monitori (more content not included)... [facility] 09-25-2024 Note Pt was seen early th is morning about wearing BiPap for possible sleep apnea due to periods of apnea and decreased oxygen saturation overnight. Pt refused BiPap, stating he has tried it before and it gives him migraines. Pt was agreeable to wearing a salter at night to help with oxygenation. 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 Referral Reason Follow up;Information Patient Information Primary Caregiver Spouse Activities of Daily Living Assistive Device Walker;Wheelchair Behavior Oriented Communication Talks;Understands speaking Discharge Planning Living Arrangements Spouse/significant other Support Systems Spouse/significant other Type of Residence Private residence;[facility] (await name of agency from ) Post Acute Services In home services (agreeable to [facility]) Type of Home Care Services (Current) Skilled Home Servicies;Home OT;Home PT ([facility] was just going to start services before admit) Patient's goal for discharge home with [facility] Does the patient need discharge transport arranged? No () Screened by [facility]. Pt declines SNF placement and is agreeable to take pt home with [facility]. Await name of [facility] agency that was approved to start services. Pt will likely need RT for home O2. Will follow up with pt's for [facility] agency. thinks [facility] agency is [facility] or [facility]. SW will follow with referrals. [facility] 09-25-2024 Note 09/25/24 1332 Admission Assessment [...] Status Interested Does the patient have a welfare case worker assigned to them through their insurance? No Living Arrangement (Current/Prior to Hospitalization) Private residence;Home self care Does the patient have history of HHC or SNF? Yes (pt could not remember the HHC agency name, neither could ) Assistive Device [...] completed with , patient deferred to . [facility] 09-25-2024 Note The findings from is face to face encounter indicate the reason this patient requires a bedside commode. Patient is physically incapable of using regular toilet facilities. Patient is confined to 1 level of the home with no toilet on that level Marilou Tomlin APRN-SILVIANO Department of Surgery - Trauma [phone] [facility] 09-25-2024 Note The findings from is [...] is provided in the home Marilou Tomlin APRN-OPERATIONS SECTION MANAGER Department of Surgery - Trauma [phone] [facility] 09-25-2024 Note The findings from th is face to face encounter indicate the [...] need have been discussed with the patient Marilou Tomlin [facility] Department of Surgery - Trauma [phone] [facility] 09-25-2024 Note Physical Therapy Physical Therapy [...] male admitted 09/23/24 as a transfer from [facility] complaining of R tibial shaft transverse fx [...] demo General Assessment General Assessment Hearing: mild PLATINUM Skin Integrity: alvaro wrap to RLE, wound [...] Level of Function Prior Function Level of George: Independent with ADLs and functional transfers, Independent [...] Perception Inattention/Neglect: A (more content not included)... [facility] 09-25-2024 Note Attestation signed by Gabriel [...] meet criteria for admission to IPR: Assessment: Kaufman fracture of the right tibial shaft and [...] Plan of Care: Patient with diagnosis of Kaufman fracture of the right tibial shaft and [...] oral, TID wit (more content not included)... [facility] 09-25-2024 Note Occupational Therapy Occupational Therapy [...] male admitted 09/23/24 as a transfer from [facility] complaining of R tibial shaft transverse fx [...] carryover General Assessment General Assessment Hearing: Mild PLATINUM Skin Integrity: ALVARO wrap to RLE, DFU [...] heel WB de (more content not included)... [facility] 09-25-2024 Note Orthopaedic Surgery Orthopaedic Surgery [...] Rivas MD 09/25/24 7:02 AM Ortho Pager: [phone] [facility] 09-25-2024 Note [facility] Trauma Surgery Progress Note Subjective Subjective: Patient seen on 5AB resting in bed. No complaints overnight. Discussed needing to work with therapy today to decide best discharge plan for him. Patient endorses some pain, but it is managed with his current pain regimen. Objective Objective Vitals: BP: (128-164)/(85-112) 128/99 (09/24 1515) Systolic BP Percentile: -- Diastolic BP Percentile: -- Temp: [36.2 ???C (97.2 ???F)-36.9 ???C (98.4 ???F)] 36.6 ???C (97.9 ???F) (09/24 2016) Temp Source: Oral (09/24 2016) Heart Rate: [73-107] 92 (09/25 030) Resp: [8-21] 20 (09/25 299) SpO2: [92 %-100 %] 94 % (09/25 033) Height: [188 cm (6' 2 )] 188 cm (6' 2 ) (09/24 09) Weight: [138 kg (304 lb 3.8 oz)-140 kg (309 lb 4.9 oz)] 140 kg (309 lb 4.9 oz) (09/25 299) [place] Coma Scale Score: 15 Intake/Output Summary [...] Value Ventricular Rate 82 Atrial Rate 82 TN Interval 164 QRS DURATION 92 QT Interval 386 QTC CALCULATION(BAZETT) 450 P Hoyt 61 R-Hoyt 18 T Wave Hoyt 69 Impression Normal sinus rhythm Normal ECG [...] Syncopal workup -Telemetry monitoring -Cardiology consulted for mary lou-operative risk stratification. - Echo, carotids ordered for syncopal workup. Both pending. Respiratory: -Incentive spirometry every 1 hour while awake FEN/GI: -Check daily labs, replace electrolytes as appropriate -Diet: Regular -GI: Not indicated -Bowel regimen: Scheduled mary lou-colace an (more content not included)... [facility] 09-24-2024 Note [facility] Vascular Surgery/Wound Care CONSULTATION Reason for Consult: Left foot ulcer Subjective History of Present Illness: Matty Garces is a 53 y.o. male with a PMH of DM, HTN, HF and recent cellulitis to [facility] . He is admitted for transverse fracture [...] q8h, ROMAIN Acevedo, 1,000 mg at 09/24/24 1533 carvedilol (Coreg) tablet 25 mg, 25 mg, oral, BID with meals, ROMAIN Acevedo, 25 mg at 09/24/24 1728 ceFAZolin (Ancef) 3 g in sodium chloride 0.9 % 100 mL IVPB, 3 g, intravenous, q8h, Luis Felipe Rivas MD, Stopped at 09/24/24 181 clonazePAM (KlonoPIN) tablet 0.5 mg, 0.5 mg, oral, Nightly, ROMAIN Acevedo, 0.5 mg at 09/24/24 215 enoxaparin (Lovenox) syringe 40 mg, 40 mg, subcutaneous, BID, ROMAIN Acevedo, 40 mg at 09/24/24 215 furosemide (Lasix) tablet 20 mg, 20 mg, oral, Daily, ROMAIN Acevedo, 20 mg at 09/24/24 0906 gabapentin (Neurontin) capsule 600 mg, 600 mg, oral, TID, ROMAIN Acevedo, 600 mg at 09/24/24 215 HYDROmorphone (Dilaudid) injection 0.5 mg, 0.5 mg, intravenous, q3h PRN, ROMAIN Acevedo, 0.5 mg at 09/24/24 1733 methocarbamol (Robaxin) tablet 500 mg, 500 mg, oral, 4x daily, ROMAIN Acevedo, 500 mg at 09/24/24 215 ondansetron HCl (PF) (Zofran) injection 4 mg, [...] g, oral, Daily, ROMAIN Acevedo sennosides-docusate sodium (Mary Lou-Colace) 8.6-50 mg per tablet 1 tablet, 1 tablet, oral, BID, RMOAIN Acevedo, 1 tablet at 09/24/242157 Social History [...] Pulmonary: Effort: Pulmonar (more content not included)... [facility] 09-24-2024 Note Orthopaedic Surgery Orthopaedic Surgery [...] BRO MD 09/24/24 10:29 PM Ortho Pager: [phone] [facility] 09-24-2024 Note Patient: Matty Ward Procedure Summary Date: 09/24/24 Room / Location: [facility] OPERATING ROOM 05 / [facility] Operating Room Anesthesia Start: 1020 Anesthesia [...] Hydration status: acceptable No notable events documented. [facility] 09-24-2024 Note Airway Date/Time: 09/24/2024 10:35 AM Urgency: elective General Information and Staff Patient location during procedure: OR Anesthesiologist: Jeffery Casey MD Resident/CALCULATION REVIEWER/CAA: Kenneth Marina MD Performed: resident/CALCULATION REVIEWER/CAA Indications and Patient Condition Indications for airway [...] 1 Number of other approaches attempted: 0 [facility] 09-24-2024 Note Patient: Matty Ward Procedure Information Date/Time: 09/24/24 1000 Procedure: CLOSED INSERTION, INTRAMEDULLARY WENDY, TIBIA (Right: Leg Lower) Location: [facility] OPERATING ROOM 05 / [facility] Operating Room Surgeons: Sandrine Hahn MD [...] Value Ventricular Rate 97 Atrial Rate 97 TN Interval 156 QRS DURATION 84 QT Interval 368 QTC CALCULATION(BAZETT) 467 P Hoyt 54 R-Hoyt 60 T Wave Hoyt 12 Impression Normal sinus rhythm Normal ECG [...] with attending and resident. Additional Equipment Requests [facility] 09-24-2024 Note Subjective Patient resting comfortably [...] Unremarkable single view chest Electronically signed: Fahad Cutler CT head wo IV contrast Result Date: 09/23/2024 Impression: * Unremarkable unenhanced CT brain * Electronically signed: Fahad Cutler Physical Exam: Tertiary examination General: Awake, Alert, [...] micro seizure -Telemetry monitoring -Cardiology consulted for mary lou-operative risk stratification -Echo, carotids ordered for syncope [...] Prophylaxis: -GI: Not indicated -Bowel regimen: Scheduled Mary Lou-colace and miralax -DVT: SCDs, restart lovenox post-operatively Other: -Wound care consultation for chronic wounds to LLE, wounds (more content not included)... [facility] 09-24-2024 Note Physical Therapy Name: Matty Garces Date of : 1970 Today's Date: 09/24/24 Pt is unable to be seen for therapy at this time secondary to Surgery today for fixation of frature. Will check back and complete therapy session as appropriate. Check No Charge Time attempted: 0759 Janet Lovelace PT, MPT [facility] 09-24-2024 Note Orthopaedic Surgery Orthopaedic Surgery [...] Unremarkable single view chest Electronically signed: Fahad rFazier. XR tibia fibula 2 views right Result [...] Rivas MD Orthopaedic Surgery, PGY-2 Ortho Pager [phone] 09/24/24 7:29 AM I am available via [employer] 6a-6p. May contact the on-call resident with any concerns via the Orthopaedic pager at any time. [facility] 07-04-2024 Telephone encounter Note left message regarding prescriptions earlier today and not being at pharmacy. I did call back and spoke to advising they were sent this afternoon. had mentioned Dr. Geiger was also going to start a Vitamin B to help boost energy in the morning. [employer] in [place]. [facility] 07-04-2024 Miscellaneous Notes left message regarding prescriptions earlier today and not being at pharmacy. I did call back and spoke to advising they were sent this afternoon. had mentioned Dr. Geiger was also going to start a Vitamin B to help boost energy in the morning. [employer] in [place]. documented in this encounter [facility] 07-03-2024 History of Present illness Narrative [...] 1 mg, Oral, 2 times daily HYDROcodone-acetaminophen ([place]) 5-325 MG tablet hydrOXYzine pamoate (Vistaril) 25 [...] reflexes: Alycia's absent. Ankle clonus absent. Coordination Wclkxe-gy-fhpt, rapid alternating movements and weqe-iq-ttgs normal bilaterally without dysmetria. Gait Normal casual, [...] up 3 months. documented in this encounter [facility] 03-26-2022 Note PROCEDURE: XR FOOT [...] authenticated by: ALVINA CAICEDO Date: 2022-03-26 10:47 [facility] 02-25-2022 Hospital Discharge instructions Patient Education 02/25/2022 [...] Watch the hydrocele for any changes. Take kiwi-syc-gzwuxrc and prescription medicines only as told by [...] 02/17/2011 Document Revised: 09/10/2018 Document Reviewed: 09/10/2018 [employer] Patient Education 2019 [employer]. Follow Up Care 01/28/2022 10:36:35 With:Mitchel DELGADO, Viola Cohn URL, URO Address: When: Unknown [facility] Evaluation + Plan note No data available for this section [facility] Evaluation note No assessment inform ation available [facility] Work Phone: Evaluation note Diagnosis Excessive daytime [...] available for this section [facility] Summary Purpose Family History No [...] May 11:42am Hospital Course Note MR#: [id number] [facility] Pt. Name: Matty Garces Admitted: 01/30/2019 [...] section and content) DATE CREATED AUTHOR 07/19/2019 [facility] DATE CREATED AUTHOR AUTHOR'S ORGANIZ ATION 02/27/2022 [facility] DATE CREATED AUTHOR AUTHOR'S ORGANIZ ATION 12/08/2022 [facility] DATE CREATED AUTHOR AUTHOR'S ORGANIZ ATION 12/03/2023 [facility] DATE CREATED AUTHOR AUTHOR'S ORGANIZ ATION 07/05/2024 [facility] DATE CREATED AUTHOR AUTHOR'S ORGANIZ ATION 09/26/2024 [facility] DATE CREATED AUTHOR AUTHOR'S ORGANIZ ATION 10/15/2024 [facility] Care Team (unrecognized sect ion and content) Team Status: Inactive Member Role Status Dates Trey Vallejo DPM MS Attending Provider Active Start: January 03, 2024 End: January 03, 2024 [employer] Relationship Specialty Start Date End Date Venus Jaeger MD [address] [place] [address] PCP - General Family Medicine 01/10/24 [employer] Relationship Specialty Start Date End Date Venus Jaeger MD [address] [place] [address] PCP - General Family Medicine 01/10/24 [employer] Relationship Specialty Start Date End Date Venus Jaeger MD [address] [facility] [place] [address] PCP - General Family Medicine 01/10/24 [employer] Relationship Specialty Start Date End Date Venus Jaeger MD [address] [place] [address] PCP - General Family Medicine 01/10/24 Team Status: Inactive Member Role Status Dates Trey Vallejo DPM MS Attending Provider Active Start: September 21, 2024 End: September 21, 2024 [employer] Relationship Specialty Start Date End Date Venus Jaeger MD [address] [place] [address] PCP - General Family Medicine 01/10/24 Goals [...] BE BASED ON THE PRIMARY CLINICAL RECORDS. [employer] [facility]. provides no warranty or guarantee of the accuracy or completeness of information in this document.
== END 2024-11-08 10:24 | disposition home or self-care (01) ==
LOC: WC 10:23
PROVIDERS: PCP Family Medicine; Visit Provider Physician Assistant
DX: E11.621 Type 2 diabetes mellitus with foot ulcer (principal); L97.522 Non-pressure chronic ulcer of other part of left foot with fat layer exposed
CPT/HCPCS: G0463

== ENCOUNTER 2025-03-05 16:15 | Observation (INO) | payer MEDICAID, SELFPAY ==
--- OUTSIDE RECORDS SUMMARY | 2024-10-31 07:19 | XMS_ITS ---
Author Organization [facility] in [place] Address [address] [place] [address] Care Team Providers Care Wigs Salesperson Name Role Phone Kareem Mendez Primary Care Provider REASON FOR VISIT refill Medications Medication SIG (Take, Route, Fr equency, Duration) Notes Start Date End Date Status Carvedilol 25 MG 1 tablet with food O rally Twice a day for 30 days 10/31/2024 Active Encounters Encounter Location Date Provider Diagnosis [facility] [address] [place] [address] 10/31/2024 Kareem Mendez Plan Of Treatment Medication Medication Name Sig Start Date Stop Date Notes Carvedilol 25 MG 1 tablet with food O rally Twice a day for 30 days 10/31/2024 Progress Notes * Alden WADE TDOB: 0 (54 yo M)Acc No.[id number]:10/31/2024 Patient: Clotilde ALEMAN Alden Muñoz :1970 A ge:54 Y S ex:Male Address:[address], [address] * Refills Start Carvedilol Tablet, 25 MG, Orally, 60, 1 tablet with food, Twice a day, 30 days, Refills=11 * true * Date: Generated for Printi ng/Fapang/eTransmitting on: 0 03/06/2025 07:04 AM EDT
--- OUTSIDE RECORDS SUMMARY | 2024-10-31 07:19 | XMS_ITS ---
Author Organization [facility] in [place] Address [address] [place] [address] Care Team Providers Care Belt Loop Cutter Name Role Phone Kareem Mendez Primary Care Provider REASON FOR VISIT refill Medications Medication SIG (Take, Route, Fr equency, Duration) Notes Start Date End Date Status Carvedilol 25 MG 1 tablet with food O rally Twice a day for 30 days 10/31/2024 Active Encounters Encounter Location Date Provider Diagnosis [facility] [address] [place] [address] 10/31/2024 Kareem Mendez Plan Of Treatment Medication Medication Name Sig Start Date Stop Date Notes Carvedilol 25 MG 1 tablet with food O rally Twice a day for 30 days 10/31/2024 Progress Notes * Alden WADE TDOB: 0 (54 yo M)Acc No.[id number]:10/31/2024 Patient: Clotilde ALEMAN Alden Muñoz :1970 A ge:54 Y S ex:Male Address:[address], [address] * Refills Start Carvedilol Tablet, 25 MG, Orally, 60, 1 tablet with food, Twice a day, 30 days, Refills=11 * true * Date: Generated for Printi ng/Fapang/eTransmitting on: 0 03/05/2025 04:37 PM EDT
--- OUTSIDE RECORDS SUMMARY | 2024-12-13 09:30 | XMS_ITS ---
Author Organization [facility] in [place] Address [address] [place] [address] Care Team Providers Care Mural Painter Name Role Phone Kareem Mendez Primary Care Provider [phone] Allergies Allergen (clinical drug ingredient) Drug/Non Drug Allergy documented on EMR Reaction Allergy Type Onset Date Status hydrocodone Hydrocodone hives Drug Allergy Act silverio fentanyl Fentanyl hives Drug Allergy Active REASON FOR VISIT ear pain Medications Medication SIG (Take, Route, Frequency, Duration) Notes Start Date End Date Status Carvedilol 25 MG 1 tablet with food O rally Twice a day for 30 days 10/31/2024 Active CeleXA 40 MG 1 tablet Orally Once a day for 30 days 07/06/2024 Active Biotin 10 MG 1 tablet Orally Once a day Active Cholecalciferol 125 MCG (5000 UT) 1 tablet on the tongue and allow to dissolve Orally Once a day Active clonazePAM 0.5 MG 1 tablet Orally Q HS Active BD Luer-Yaquelin Syringe 23G X 1 3 ML USE DIRECTED to INJECT testosterone every 2 (TWO) weeks for 28 Active tiZANidine HCl 4 MG 1 tablet Orally at bedtime for 30 days 04/19/2023 Active Amantadine HCl 100 MG 1 tablet Orally BI D for 30 days Active amLODIPine Besylate 5 MG 1 tablet Orally Once a day Active Aspirin 81 81 MG 1 tablet Orally Once a day Active Nvdwmdor-Czwacpwej-IF 3.5-24337-9 4 drops into affected ear Otic Three times a day 12/13/2024 Active SUMAtriptan Succinate 100 MG 1 tablet at least 2 hours between doses as needed Orally Twice a day Active Testosterone Cypionate 200 MG/ML INJECT 1 AND 1/2 ML EVERY 2 WEEKS VIA INTRAMUSCULAR ROUTE for 28 07/06/2024 Active Sildenafil Citrate 50 MG 1 tablet as nee ded Orally Q 3 days for 10 days 04/04/2024 Active Simvastatin 20 mg TAKE ONE TABLET BY M OUTH DAILY IN THE EVENING for 30 Active Modafinil 200 MG 1 tablet in the morn ing Orally BID Active Multi For Him 50+ - as directed Orally Active Potassium Chloride ER 10 MEQ TAKE ONE TABLET BY MOUTH TWICE A DAY WITH FOOD for 30 Active Ondansetron 4 MG 1 tablet on the tong ue and allow to dissolve Orally Once a day Active Pantoprazole Sodium 40 MG 1 tablet Orall y Once a day for 30 days Active hydrOXYzine Pamoate 25 MG 1 capsule at b edtime as needed Orally Q HS Active Meclizine HCl 12.5 MG 1 tablet as needed Orally prn every 12 hrs Active Glycopyrrolate 1 mg TAKE ONE TABLET BY M OUTH TWICE A DAY for 30 Active HYDROcodone-Acetaminophen 5-325 MG 1 tablet as needed Orally Q 8 hrs PRN for 7 days 04/04/2024 Active Gabapentin 600 mg TAKE 1 TABLET BY ZACARIAS TH DAILY IN THE MORNING AND 2 TABLETS EVERYDAY IN THE EVENING for 30 Active Doxazosin Mesylate 8 MG 1 tablet Orally Once a day for 90 days Active Furosemide 20 mg TAKE ONE TABLET BY M OUTH ONCE DAILY FOR 30 DAYS for 30 Active Social History Tobacco Use: Social History Observation Description Date Details (start date - stop date) Never Smoker NA - NA Tobacco Use/Smoking Question Answer Notes Patient is a nonsmoker AUDIT-C (Standard) Question Answer Notes Did you have a drink containing alcohol in the p ast year? No Points 0 Interpretation Negative Problems Problem Type SNOMED Code ICD Code Onset Dates Problem Status W/U Status Risk Notes Problem Otitis externa of left ear (606725694954 9109) Otitis externa of left ear (H60.92) Active confirmed Problem Otitis externa (3024863) Otitis externa (H60.90) Active confirmed Vital Signs Weight 278.0 lbs 12/13/2024 Height 75 in 12/13/2024 Blood pressure systolic 126 mm Hg 12/14/19 25 Blood pressure diastolic 82 mm Hg 025 BMI 34.74 kg/m2 12/13/2024 Encounters Encounter Location Date Provider Diagnosis [facility] [address] [place] [address] 12/13/2024 Kareem Mendez Acute otitis media, left H66.92 ; Otalgia of left ear H92.02 and Otitis externa of left ear H60.92 Assessments Encounter Date Diagnosis (ICD Code) Assessment Notes Treatment Notes Treatment Clinical Notes Section Notes 12/13/2024 Acute otitis media, left (ICD-10 - H66.92) 12/13/2024 Otalgia of left ear (ICD-10 - H92.02) 12/13/2024 Otitis externa of left ear (ICD-10 - H60.92) 12/13/2024 Other You have been prescribed antibiotics for otitis media. Antibiotics may bother your stomach, so try taking them with a light meal (unless instructed otherwise by your pharmacist). It is important to take them until they are finished. You can use oaxs-zel-fewvyss acetaminophen or ibuprofen if needed for pain. You have been prescribed antibiotics. You should be extra vigilant about hand washing or using hand neon pumper gel. You should follow up with your Primary Care Physician or return to clinic if not improving in the next 3-5 days. Plan Of Treatment Medication Medication Name Sig Start Date Stop Date Notes Bycjqrpf-Eqooxjeks-SO 3.5-97585-0 4 drops into affected ear Otic Three times a day 12/13/2024 Treatment Notes Assessment Notes Other You have been prescr ibed antibiotics for otitis media. Antibiotics may bother your stomach, so try taking them with a light meal (unless instructed otherwise by your pharmacist). It is important to take them until they are finished. You can use puup-dbo-nsgoktb acetaminophen or ibuprofen if needed for pain. You have been prescribed antibiotics. You should be extra vigilant about hand washing or using hand neon pumper gel. You should follow up with your Primary Care Physician or return to clinic if not improving in the next 3-5 days. Next Appt Details Follow Up: 3-5 days, if no i mprovement, Reason: Progress Notes * Alden WADE TDOB: 0 (54 yo M)Acc No.[id number]:12/13/2024 Progress Note Patient: Alden VAZQUEZ [facility] Maggie :1970 A ge:54 Y S ex:Male Date:12/13/2024 [facility] [place] [facility] [id number] Check In:01:02 PM ESTCheck O ut:01:26 PM EST Subjective: * Chief Complaints: * E ar pain * HPI: O titis Media: The patient complains of s ymptoms of an ear infection.? The symptoms have been present for 1 -2 days. The symptoms are m oderate. Symptomatic treatment has included O TC medication. Associated symptoms include p ain in one or both ears, fever. G eneral: Left ear pain - no other comlaints. * ROS: E NT: Comments S ee HPI for details. C ardiovascular: Edema d enies. P alpitations d enies. ? R espiratory: Chest pain d enies. C ough d enies. ? G astrointestinal: Abdominal pain d enies. D ecreased appetite d enies. S kin: Rash d enies. * Active Problem List E29.1 Decreased testostero ne level Modified On:12/06/2023U Status:confirmed M54.16 Lumbar radiculopathy Modified On:06/02/2023U Status:confirmed G47.10 Hypersomnia Modified On:10/29/2023U Status:confirmed I38 Systolic murmur Modified On:05/27/2023U Status:confirmed R61 Hyperhidrosis Modified On:05/27/2023U Status:confirmed M51.37 Degenerative disc di sease at L5-S1 level Modified On:05/27/2023U Status:confirmed M46.96 Lumbar spondylitis Modified On:05/27/2023U Status:confirmed E11.9 Diabetes Modified On:05/27/2023 Status:confirmed M50.90 Cervical disc diseas e Modified On:05/27/2023 Status:confirmed G56.00 Carpal tunnel syndro me Modified On:05/27/2023U Status:confirmed M77.10 Lateral epicondyliti s Modified On:05/27/2023U Status:confirmed G89.29 Chronic pain Modified On:06/02/2023U Status:confirmed K21.9 GERD (gastroesophage al reflux disease) Modified On:05/27/2023U Status:confirmed G47.00 Insomnia Modified On:05/27/2023 Status:confirmed N52.9 Impotence Modified On:05/27/2023U Status:confirmed F41.9 Anxiety Modified On:05/27/2023U Status:confirmed G47.33 PATEL (obstructive sle ep apnea) Modified On:05/27/2023U Status:confirmed G43.909 Migraine Modified On:08/11/2023 Status:confirmed L03.90 Cellulitis Modified On:08/25/2023 Status:confirmed R10.11 Right upper quadrant abdominal pain Modified On:10/13/2023U Status:confirmed J18.9 Pneumonia Modified On:11/12/2023U Status:confirmed L97.519 Foot ulcer, right Modified On:12/01/2023U Status:confirmed M71.9 Bursitis Modified On:12/20/2023U Status:confirmed L97.512 Chronic ulcer of rig ht foot with fat layer exposed Modified On:12/28/2023U Status:confirmed E11.621 Type 2 diabetes crow itus with foot ulcer Modified On:03/06/2024U Status:confirmed S82.402A Left fibular fractur e Modified On:03/15/2024U Status:confirmed M14.672 Charcot's joint, lef t ankle and foot Modified On:04/04/2024U Status:confirmed E11.42 Controlled type 2 di abetes mellitus with diabetic polyneuropathy, unspecified whether continuous churn buttermaker insulin use Modified On:04/10/2024U Status:confirmed M25.572 Left ankle pain Modified On:04/20/2024U Status:confirmed E11.9 Diabetes mellitus Modified On:04/24/2024U Status:confirmed F32.9 Depression Modified On:07/06/2024U Status:confirmed L97.522 Chronic ulcer of gre at toe of left foot with fat layer exposed Modified On:09/18/2024U Status:confirmed J96.22 Acute and chronic re spiratory failure with hypercapnia Modified On:09/22/2024 Status:confirmed G47.33 Obstructive sleep ap lorna (adult) (pediatric) Modified On:09/22/2024 Status:confirmed G47.00 Insomnia, unspecifie d Modified On:09/22/2024 Status:confirmed Z68.38 Body mass index [BMI ] 38.0-38.9, adult Modified On:09/22/2024 Status:confirmed I10 Hypertension Modified On:10/16/2024 Status:confirmed L97.525 Non-pressure chronic ulcer of other part of left foot with muscle involvement without evidence of necrosis Modified On:10/30/2024 Status:confirmed H60.90 Otitis externa Modified On:12/13/2024 Status:confirmed H60.92 Otitis externa of le ft ear Modified On:12/14/2024 Status:confirmed * Medical History: * Surgical History: V ASECTOMY UVULOPLASTY TONSILLECTOMY RIGHT SHOULDER CERVICAL DECOMPRESSION REVISED C6-C7 OSTEOTOMY HEAD OF FIRST PHALANX ORIF left ankle Lateral Malleolus Fx, Closed Reduction Post Malleolus Fx 03/15/24 * Hospitalization/Major Diagno stic Procedure: s ee above cervical surgery 2019cervical 2018 * Family History: F ather: alive 85 yrs, diagnosed with Diabetes mellitus without mention of complication, type II or unspecified type, not stated as uncontrolled, Unspecified heart disease, Unspecified polyarthropathy or polyarthritis, pelvic region and thigh. M other: alive 78 yrs. B rother(s): alive.?Sister(s): alive. S on(s): alive. D aughter(s): alive. 4 brother(s) , 2 sister(s) - healthy. 1 son(s) , 1 daughter(s) - healthy. . * Social History: T obacco Use: T obacco Use/Smoking P atient is a n onsmoker D rug/Alcohol: A JUSTIN-C (Standard) D id you have a drink containing alcohol in the past year? N o P oints 0 I nterpretation N egative * Medications: T akingAmantadine HCl 100 MG Tablet 1 tablet Orally BID amLODIPine Besylate 5 MG Tablet 1 tablet Orally Once a day Aspirin 81(Aspirin) 81 MG Tablet Delayed Release 1 tablet Orally Once a day BD Luer-Yaquelin Syringe(Syringe/Needle (Disp)) 23G X 1 3 ML Miscellaneous USE DIRECTED to INJECT testosterone every 2 (TWO) weeks Biotin 10 MG Tablet 1 tablet Orally Once a day Carvedilol 25 MG Tablet 1 tablet with food Orally Twice a day CeleXA(Citalopram Hydrobromide) 40 MG Tablet 1 tablet Orally Once a day Cholecalciferol 125 MCG (5000 UT) Tablet Disintegrating 1 tablet on the tongue and allow to dissolve Orally Once a day clonazePAM 0.5 MG Tablet 1 tablet Orally Q HS Doxazosin Mesylate 8 MG Tablet 1 tablet Orally Once a day Furosemide 20 mg Tablet TAKE ONE TABLET BY MOUTH ONCE DAILY FOR 30 DAYS Gabapentin 600 mg Tablet TAKE 1 TABLET BY MOUTH DAILY IN THE MORNING AND 2 TABLETS EVERYDAY IN THE EVENING Glycopyrrolate 1 mg Tablet TAKE ONE TABLET BY MOUTH TWICE A DAY HYDROcodone-Acetaminophen 5-325 MG Tablet 1 tablet as needed Orally Q 8 hrs PRN hydrOXYzine Pamoate 25 MG Capsule 1 capsule at bedtime as needed Orally Q HS Meclizine HCl 12.5 MG Tablet 1 tablet as needed Orally prn every 12 hrs Modafinil 200 MG Tablet 1 tablet in the morning Orally BID Multi For Him 50+(Multiple Vitamins-Minerals) - Tablet as directed Orally Ondansetron 4 MG Tablet Disintegrating 1 tablet on the tongue and allow to dissolve Orally Once a day Pantoprazole Sodium 40 MG Tablet Delayed Release 1 tablet Orally Once a day Potassium Chloride ER 10 MEQ Tablet Extended Release TAKE ONE TABLET BY MOUTH TWICE A DAY WITH FOOD Sildenafil Citrate 50 MG Tablet 1 tablet as needed Orally Q 3 days Simvastatin 20 mg Tablet TAKE ONE TABLET BY MOUTH DAILY IN THE EVENING SUMAtriptan Succinate 100 MG Tablet 1 tablet at least 2 hours between doses as needed Orally Twice a day Testosterone Cypionate 200 MG/ML Solution INJECT 1 AND 1/2 ML EVERY 2 WEEKS VIA INTRAMUSCULAR ROUTE tiZANidine HCl 4 MG Tablet 1 tablet Orally at bedtime Medication List reviewed and reconciled with the patientTaking Amantadine HCl 100 MG Tablet 1 tablet Orally BID Taking amLODIPine Besylate 5 MG Tablet 1 tablet Orally Once a day Taking Aspirin 81(Aspirin) 81 MG Tablet Delayed Release 1 tablet Orally Once a day Taking BD Luer-Yaquelin Syringe(Syringe/Needle (Disp)) 23G X 1 3 ML Miscellaneous USE DIRECTED to INJECT testosterone every 2 (TWO) weeks Taking Biotin 10 MG Tablet 1 tablet Orally Once a day Taking Carvedilol 25 MG Tablet 1 tablet with food Orally Twice a day Taking CeleXA(Citalopram Hydrobromide) 40 MG Tablet 1 tablet Orally Once a day Taking Cholecalciferol 125 MCG (5000 UT) Tablet Disintegrating 1 tablet on the tongue and allow to dissolve Orally Once a day Taking clonazePAM 0.5 MG Tablet 1 tablet Orally Q HS Taking Doxazosin Mesylate 8 MG Tablet 1 tablet Orally Once a day Taking Furosemide 20 mg Tablet TAKE ONE TABLET BY MOUTH ONCE DAILY FOR 30 DAYS Taking Gabapentin 600 mg Tablet TAKE 1 TABLET BY MOUTH DAILY IN THE MORNING AND 2 TABLETS EVERYDAY IN THE EVENING Taking Glycopyrrolate 1 mg Tablet TAKE ONE TABLET BY MOUTH TWICE A DAY Taking HYDROcodone-Acetaminophen 5-325 MG Tablet 1 tablet as needed Orally Q 8 hrs PRN Taking hydrOXYzine Pamoate 25 MG Capsule 1 capsule at bedtime as needed Orally Q HS Taking Meclizine HCl 12.5 MG Tablet 1 tablet as needed Orally prn every 12 hrs Taking Modafinil 200 MG Tablet 1 tablet in the morning Orally BID Taking Multi For Him 50+(Multiple Vitamins-Minerals) - Tablet as directed Orally Taking Ondansetron 4 MG Tablet Disintegrating 1 tablet on the tongue and allow to dissolve Orally Once a day Taking Pantoprazole Sodium 40 MG Tablet Delayed Release 1 tablet Orally Once a day Taking Potassium Chloride ER 10 MEQ Tablet Extended Release TAKE ONE TABLET BY MOUTH TWICE A DAY WITH FOOD Taking Sildenafil Citrate 50 MG Tablet 1 tablet as needed Orally Q 3 days Taking Simvastatin 20 mg Tablet TAKE ONE TABLET BY MOUTH DAILY IN THE EVENING Taking SUMAtriptan Succinate 100 MG Tablet 1 tablet at least 2 hours between doses as needed Orally Twice a day Taking Testosterone Cypionate 200 MG/ML Solution INJECT 1 AND 1/2 ML EVERY 2 WEEKS VIA INTRAMUSCULAR ROUTE Taking tiZANidine HCl 4 MG Tablet 1 tablet Orally at bedtime Medication List reviewed and reconciled with the patient * Allergies: F entanyl: hives - Allergy - Criticality HighHydrocodone: hives - Allergy - Criticality Highno[Allergies Verified] Objective: * Vitals: W t:278.0lbs, Ht: 75 in, BP:126/82mm Hg, BMI:34.74Index, Ht-cm: 190.5 cm, Wt-k.1 kg. * Examination: G eneral Examination: GENERAL APPEARANCE: in no acute distress, well developed, well nourished. EYES: pupils equal, round, reactive to light and accomodations, sclera non-icteric. ENT: normocephalic, autraumatic. EARS: . ORAL CAVITY: mucosa moist. THROAT: no erythema, no exudate. LUNGS: clear to auscultation bilaterally. CARDIO: regular rate and rhythm, S1, S2 normal, no murmurs. ABDOMEN: soft, nontender, nondistended, bowel sounds present, normal. SKIN: warm and dry, no suspicious lesions. EXTREMITIES: no clubbing, cyanosis, or edema. NEUROLOGIC: nonfocal, motor strength normal upper and lower extremities, sensory exam intact. NECK/THYROID: neck supple, full range of motion, no cervical lymphadenopathy. Assessment: * Assessment: 1. A cute otitis media, left - H66.92 2 . O talgia of left ear - H92.02? 3. O titis externa of left ear - H60.92 Plan: * Treatment: * Procedure Codes: * Preventive Medicine: Screenings/Counseling: B [place] ACTION PLAN Above Normal BMI Follow-up D ietary management education, guidance, and counseling * Follow Up: 3 -5 days, if no improvement * * Sign off status: Completed Visit Status: C HK (Check Out) true * Provider: Sarah Mendez ([facility])MD Date: 0 12/13/2024 Generated for Angelo santos/Gómez/eTnarcisasmitting on: 0 03/05/2025 04:37 PM EDT History and Physical Notes * HPI (History of Present Illness) Category Sub-Category Detail Notes Category Not es General Left ear pain - no other comlaints Otitis Media The patient complain s of symptoms of an ear infection The symptoms have been present for 1-2 d ays The symptoms are moderate Symptomatic treatment has included OTC m edication Associated symptoms include pain in one or both ears, fever Examination Category Sub-Category Detail Notes Category Not es General Examination GENERAL APPEARANCE: in no ac renard distress, well developed, well nourished EYES: pupils equal, round, reactive to light and accomodations, sclera non-icteric EARS: THROAT: no erythema, no exud ate CARDIO: regular rate and rhy thm, S1, S2 normal, no murmurs LUNGS: clear to auscultatio n bilaterally ABDOMEN: soft, nontender, non distended, bowel sounds present, normal NEUROLOGIC: nonfocal, motor stre ngth normal upper and lower extremities, sensory exam intact SKIN: warm and dry, no jerilyn picious lesions EXTREMITIES: no clubbing, cyanosi s, or edema ORAL CAVITY: mucosa moist ENT: normocephalic, autra umatic NECK/THYROID: neck supple, full ra nge of motion, no cervical lymphadenopathy
--- OUTSIDE RECORDS SUMMARY | 2024-12-13 09:30 | XMS_ITS ---
Author Organization [facility] in [place] Address [address] [place] [address] Care Team Providers Care Intelligence Intern Name Role Phone Kareem Mendez Primary Care Provider [phone] Allergies Allergen (clinical drug ingredient) Drug/Non Drug [...] 1 tablet Orally Once a day Active Knycllmm-Gheuekpum-YM 3.5-84382-4 4 drops into affected ear Otic Three [...] W/U Status Risk Notes Problem Otitis externa (6172683) Otitis externa (H60.90) Active confirmed Problem Otitis externa of left ear (751215033722 9109) Otitis externa of left ear (H60.92) Active confirmed Vital Signs Weight 278.0 lbs 12/13/2024 Height 75 in 12/13/2024 Blood pressure systolic 126 mm Hg 12/14/19 25 Blood pressure diastolic 82 mm Hg 025 BMI 34.74 kg/m2 12/13/2024 Encounters Encounter Location Date Provider Diagnosis [facility] [address] [place] [address] 12/13/2024 Kareem Mendez Acute otitis media, left [...] until they are finished. You can use yjyf-lhg-ikkjvly acetaminophen or ibuprofen if needed for pain. You have been prescribed antibiotics. You should be extra vigilant about hand washing or using hand threading machine feeder automatic gel. You should follow up with your Primary Care Physician or return to clinic if not improving in the next 3-5 days. Plan Of Treatment Medication Medication Name Sig Start Date Stop Date Notes Ltyxlbks-Alhqcmozw-OD 3.5-89180-8 4 drops into affected ear Otic Three times a day 12/13/2024 Treatment Notes Assessment Notes Other You have been prescr ibed antibiotics for otitis media. Antibiotics may bother your stomach, so try taking them with a light meal (unless instructed otherwise by your pharmacist). It is important to take them until they are finished. You can use wigu-huh-xajkgpe acetaminophen or ibuprofen if needed for pain. You have been prescribed antibiotics. You should be extra vigilant about hand washing or using hand threading machine feeder automatic gel. You should follow up with your Primary Care Physician or return to clinic if not improving in the next 3-5 days. Next Appt Details Follow Up: 3-5 days, if no i mprovement, Reason: Progress Notes * Alden WADE TDOB: 0 (54 yo M)Acc No.[id number]:12/13/2024 Progress Note Patient: Alden VAZQUEZ [facility] :1970 A ge:54 Y S ex:Male Date:12/13/2024 Address[facility] [place] [facility] [id number] Check In:01:02 PM ESTCheck O ut:01:26 PM [...] abetes mellitus with diabetic polyneuropathy, unspecified whether terminal makeup operator insulin use Modified On:04/10/2024U Status:confirmed M25.572 Left [...] Procedure Codes: * Preventive Medicine: Screenings/Counseling: B [place] ACTION PLAN Above Normal BMI Follow-up D ietary management education, guidance, and counseling * Follow Up: 3 -5 days, if no improvement * * Sign off status: Completed Visit Status: C HK (Check Out) true * Provider: Sarah Mendez ([facility])MD Date: 0 12/13/2024 Generated for Angelo santos/Gómez/eTransmitting on: 0 03/06/2025 07:04 AM EDT History and Physical Notes * HPI [...]
--- OUTSIDE RECORDS SUMMARY | 2025-02-22 11:15 | XMS_ITS ---
Author Organization The [facility] in [place] Address [address] [place] [address] Care Team Providers Care Graphics Artist Name Role Phone Andrea Kareem Primary Care Provider Allergies Allergen (clinical drug ingredient) Drug/Non Drug Allergy documented on EMR Reaction Allergy Type Onset Date Status hydrocodone Hydrocodone hives Drug Allergy Act silverio fentanyl Fentanyl hives Drug Allergy Active Reason For Referral Diagnosis 1 Ankle pain (M25.579) Referral Organization [facility] Medicine Referring Provider First Name Kareem Referring Provider Last Name Andrea Referring Provider Speciality Family Med jayden Referred Provider Trey Vallejo Referred Provider Specialty Podiatry Referral Priority Routine REASON FOR VISIT multiple issues, Discuss ordering some testing- C.Diff and lab yearly lab work was done in July- he wants to know if he is considered a diabetic? Is not on any meds but chart listed as one, Handicap Placard, Epi pen for when bee keeping, Needs refill of furosemide and glycopyrrolate- [facility] Medications Medication SIG (Take, Route, Frequency, Duration) Notes Start Date End Date Status Glycopyrrolate 1 mg TAKE ONE TABLET BY M OUTH TWICE A DAY for 30 Active amLODIPine Besylate 5 mg TAKE ONE TABLET BY MOUTH ONCE DAILY IN THE MORNING for 30 Active Amantadine HCl 100 MG 1 tablet Orally BI D for 30 days Active BD Luer-Yaquelin Syringe 23G X 1 3 ML USE DIRECTED to INJECT testosterone every 2 (TWO) weeks for 28 Active Aspirin 81 81 MG 1 tablet Orally Once a day Active Furosemide 20 mg TAKE ONE TABLET BY M OUTH ONCE DAILY FOR 30 DAYS for 30 Active tiZANidine HCl 4 MG 1 tablet Orally at bedtime for 30 days 04/19/2023 Active Simvastatin 20 mg TAKE ONE TABLET BY M OUTH DAILY IN THE EVENING for 30 Active Testosterone Cypionate 200 MG/ML INJECT 1 AND 1/2 ML EVERY 2 WEEKS VIA INTRAMUSCULAR ROUTE for 28 01/07/2025 Active SUMAtriptan Succinate 100 MG 1 tablet at least 2 hours between doses as needed Orally Twice a day Active Ondansetron 4 MG 1 tablet on the tong ue and allow to dissolve Orally Once a day Active Potassium Chloride ER 10 MEQ TAKE ONE TABLET BY MOUTH TWICE A DAY WITH FOOD for 30 Active Pantoprazole Sodium 40 MG 1 tablet Orall y Once a day for 30 days Active Sildenafil Citrate 50 MG 1 tablet as nee ded Orally Q 3 days for 10 days 04/04/2024 Active Modafinil 200 MG 1 tablet in the morn ing Orally BID Active Meclizine HCl 12.5 MG 1 tablet as needed Orally prn every 12 hrs Active Multi For Him 50+ - as directed Orally Active EpiPen 2-Doug 0.3 MG/0.3ML as directed In jection once 02/22/2025 Active hydrOXYzine Pamoate 25 MG 1 capsule at b edtime as needed Orally Q HS Active Cholecalciferol 125 MCG (5000 UT) 1 tablet on the tongue and allow to dissolve Orally Once a day Active Doxazosin Mesylate 8 MG 1 tablet Orally Once a day for 90 days Active clonazePAM 0.5 MG 1 tablet Orally Q HS Active Gabapentin 600 mg TAKE 1 TABLET BY ZACARIAS TH DAILY IN THE MORNING AND 2 TABLETS EVERYDAY IN THE EVENING for 30 Active HYDROcodone-Acetaminophen 5-325 MG 1 tablet as needed Orally Q 8 hrs PRN for 7 days 04/04/2024 Active Carvedilol 25 MG 1 tablet with food O rally Twice a day for 30 days 10/31/2024 Active Biotin 10 MG 1 tablet Orally Once a day Active CeleXA 40 MG 1 tablet Orally Once a day for 30 days 07/06/2024 Active Social History Tobacco Use: Social History Observation Description Date Details (start date - stop date) Never Smoker NA - NA Tobacco Use/Smoking Question Answer Notes Patient is a nonsmoker Vital Signs Weight 276.6 lbs 02/22/2025 Height 75 in 02/22/2025 Blood pressure systolic 128 mm Hg 02/23/20 25 Blood pressure diastolic 84 mm Hg 025 BMI 34.57 kg/m2 02/22/2025 Encounters Encounter Location Date Provider Diagnosis [facility] [address] [place] [address] 02/22/2025 Kareem Mendez Lumbar radiculopathy M54.16 ; Decreased testosterone level E29.1 ; Insomnia G47.00 ; Type 2 diabetes mellitus with foot ulcer E11.621 ; Hypertension I10 and Ankle pain M25.579 Assessments Encounter Date Diagnosis (ICD Code) Assessment Notes Treatment Notes Treatment Clinical Notes Section Notes 02/22/2025 Lumbar radiculopathy (ICD-10 - M54.16) 02/22/2025 Decreased testosterone level (ICD-10 - E29.1) 02/22/2025 Insomnia (ICD-10 - G47.00) 02/22/2025 Type 2 diabetes mellitus with foot ulcer (ICD-10 - E11.621) 02/22/2025 Hypertension (ICD-10 - I10) 02/22/2025 Ankle pain (ICD-10 - M25.579) Plan Of Treatment Medication Medication Name Sig Start Date Stop Date Notes Glycopyrrolate 1 mg TAKE ONE TABLET BY M OUTH TWICE A DAY for 30 Furosemide 20 mg TAKE ONE TABLET BY M OUTH ONCE DAILY FOR 30 DAYS for 30 EpiPen 2-Doug 0.3 MG/0.3ML as directed Injection once 02/22 Referrals Referral Date Details 02/22/2025 02/22/2025, Trey hirsch Progress Notes * Alden WADE TDOB: 0 (54 yo M)Acc No.[id number]:02/22/2025 Progress Note Patient: Alden VAZQUEZ Provider: Sarah Mendez ([facility])MD :1970 A ge:54 Y S ex:Male Date:02/22/2025 Address:[address] [place] [address] [place], [id number] Check In:03:15 PM ESTCheck O ut:03:44 PM EST Subjective: * Chief Complaints: * M ultiple issuesDiscuss ordering some testing- C.Diff and lab yearly lab work was done in July- he wants to know if he is considered a diabetic? Is not on any meds but chart listed as oneHandicap PlacardEpi pen for when bee keepingNeeds refill of furosemide and glycopyrrolate- [facility] * HPI: G eneral: needlasixna dn glycoyrollate filled edema persisting DM _ borderline - stable. * ROS: E ENT: hearing changes d enies. v isual changes d enies.?non-healing mouth sores d enies. s wollen glands or neck lumps d enies. h oarseness d enies. s ore throat d enies. d ifficulty swallowing d enies. n ose bleeds d enies. n sophie congestion d enies. e ar ache d enies. e ar discharge?denies. r inging in ears d enies. l ight sensitivity d enies. e ye pain d enies. b lurring d enies. e ye irritation d enies. d ouble vision d enies.?vision loss d enies. G eneral/Constitutional: Sweats: D enies. F atigue d enies. S leep problems d enies. A norexia d enies. M alaise d enies. W eight loss d enies.?Fatigue or Weakness d enies. F ever or Chills d enies. C ardiovascular: Shortness of Breath w/lying flat d enies. L ightheadedness/dizziness d enies. C hest tightness/ heavy pressure d enies. S welling of legs, ankles, or feet d enies. W aking up with shortness of breath d enies. C hest pain denies. P alpitations d enies. W eight gain d enies. R espiratory: Chronic or frequent cough d enies. C oughing up blood?denies. D ifficulty breathing d enies. P roductive cough d enies. S noring?denies. S hortness of breath that awakens from sleep (PND) d enies. C hest pain d enies. S putum production d enies. W heezing d enies. M usculoskeletal: Joint pain d enies. J oint Fluid d enies. B ack pain d enies. K nee pain d enies. N ramya pain d enies. J oint Stiffness d enies. M uscle cramps d enies. W eakness of muscles d enies. A rthritis d enies. M uscle aches d enies. P ain in shoulder(s) d enies. S wollen joints d enies. * Active Problem List E29.1 Decreased testostero ne level Modified On:12/06/2023U Status:confirmed M54.16 Lumbar radiculopathy Modified On:06/02/2023U Status:confirmed G47.10 Hypersomnia Modified On:10/29/2023 Status:confirmed I38 Systolic murmur Modified On:05/27/2023U Status:confirmed R61 Hyperhidrosis Modified On:05/27/2023U Status:confirmed M51.37 Degenerative disc di sease at L5-S1 level Modified On:05/27/2023U Status:confirmed M46.96 Lumbar spondylitis Modified On:05/27/2023U Status:confirmed E11.9 Diabetes Modified On:05/27/2023U Status:confirmed M50.90 Cervical disc diseas e Modified On:05/27/2023 Status:confirmed G56.00 Carpal tunnel syndro me Modified On:05/27/2023U Status:confirmed M77.10 Lateral epicondyliti s Modified On:05/27/2023U Status:confirmed G89.29 Chronic pain Modified On:06/02/2023U Status:confirmed K21.9 GERD (gastroesophage al reflux disease) Modified On:05/27/2023U Status:confirmed G47.00 Insomnia Modified On:05/27/2023U Status:confirmed N52.9 Impotence Modified On:05/27/2023U Status:confirmed F41.9 [...] diabetes crow itus with foot ulcer Modified On:03/06/2024 Status:confirmed S82.402A Left fibular fractur e Modified On:03/15/2024U Status:confirmed M14.672 Charcot's joint, lef t ankle and foot Modified On:04/04/2024U Status:confirmed E11.42 Controlled type 2 di abetes mellitus with diabetic polyneuropathy, unspecified whether alf insulin use Modified On:04/10/2024U Status:confirmed M25.572 Left ankle pain Modified On:04/20/2024U Status:confirmed E11.9 Diabetes mellitus Modified On:04/24/2024U Status:confirmed F32.9 Depression Modified On:07/06/2024U Status:confirmed L97.522 Chronic ulcer of gre at toe of left foot with fat layer exposed Modified On:09/18/2024U Status:confirmed J96.22 Acute and chronic re spiratory failure with hypercapnia Modified On:09/22/2024U Status:confirmed G47.33 Obstructive sleep ap lorna (adult) (pediatric) Modified On:09/22/2024U Status:confirmed G47.00 Insomnia, unspecifie d Modified On:09/22/2024U Status:confirmed Z68.38 Body mass index [BMI ] 38.0-38.9, adult Modified On:01/10/2025W/U Status:confirmed I10 Hypertension Modified On:10/16/2024/U Status:confirmed L97.525 Non-pressure chronic ulcer of other part of left foot with muscle involvement without evidence of necrosis Modified On:10/30/2024/U Status:confirmed H60.90 Otitis externa Modified On:12/13/2024/U Status:confirmed H60.92 Otitis externa of le ft ear Modified On:12/14/2024/U Status:confirmed * Medical History: * Surgical History: V ASECTOMY UVULOPLASTY TONSILLECTOMY RIGHT SHOULDER CERVICAL DECOMPRESSION REVISED C6-C7 OSTEOTOMY HEAD OF FIRST PHALANX ORIF left ankle Lateral Malleolus Fx, Closed Reduction Post Malleolus Fx 03/15/24 * Hospitalization/Major Diagno stic Procedure: s ee above cervical surgery 2019cervical 2018 * Family History: F ather: alive 85 yrs, diagnosed with Unspecified heart disease, Unspecified polyarthropathy or polyarthritis, pelvic region and thigh, Diabetes mellitus without mention of complication, type II or unspecified type, not stated as uncontrolled. M other: alive 78 yrs. B rother(s): alive.?Sister(s): alive. S on(s): alive. D syder(s): alive. 4 brother(s) , 2 sister(s) - healthy. 1 son(s) , 1 daughter(s) - healthy. . * Social History: T obacco Use: T obacco Use/Smoking P atient is a n onsmoker * Medications: T akingAmantadine HCl 100 MG Tablet 1 tablet Orally BID amLODIPine Besylate 5 mg Tablet TAKE ONE TABLET BY MOUTH ONCE DAILY IN THE MORNING Aspirin 81(Aspirin) 81 MG Tablet Delayed Release [...] MG Tablet 1 tablet Orally at bedtime Taking Amantadine HCl 100 MG Tablet 1 tablet Orally BID Taking amLODIPine Besylate 5 mg Tablet TAKE ONE TABLET BY MOUTH ONCE DAILY IN THE MORNING Taking Aspirin 81(Aspirin) 81 MG Tablet Delayed [...] BY MOUTH TWICE A DAY Taking HYDROcodone-Acetaminophen 5- 325 MG Tablet 1 tablet as needed Orally [...] MG Tablet 1 tablet Orally at bedtime KxmjbxbrdlyrLpvimxnu-Hiputoixt-QI 3.5-87418-5 Suspension 4 drops into affected ear Otic Three times a day Medication List reviewed and reconciled with the patientDiscontinued Rydzsdkw-Gtgrklqvh-MH 3.5-60329-6 Suspension 4 drops into affected ear Otic Three times a day Medication List reviewed and reconciled with the patient * Allergies: F entanyl: hives - Allergy - Criticality HighHydrocodone: hives - Allergy - Criticality Highno[Allergies Verified] Objective: * Vitals: W t:276.6lbs, Ht: 75 in, BP:128/84mm Hg, BMI:34.57Index, Ht-cm: 190.5 cm, Wt-k.46 kg. * Examination: P hysical Exam: GENERAL: w ell developed, well nourished, in no acute distress. HEAD: n ormocephalic/atraumatic. EYES: p upils equal, round and reactive to light, conjunctivae and sclerae normal. EARS: n o deformity or lesion of external ear, canals and TM appear normal bilaterally, TM's intact, not inflamed with normal light reflex, hearing grossly normal to conversational speech. NOSE: n o deformity, discharge, inflammation, or lesions.? MOUTH: m ucous membranes moist, normal oropharynx and posterior pharynx without lesions or exudates, tongue normal, dentition normal. NECK: n ramya supple, no masses or palpable cervical nodes, trachea midline, thyroid without nodules, masses, tenderness, or enlargement. CHEST: n o chest wall deformity, no chest wall tenderness.? LUNGS: n ormal respiratory effort and clear to auscultation, no wheezes, rales, or rhonchi, good air exchange. CARDIO: r egular rate and rhythm, normal S1 and S2, nor murmur, rub, or gallop. PULSES: n ormal capillary refill. ABDOMEN: s oft, non-distended, non-tender, no masses. MUSCULOSKELETAL: n o deformity or scoliosis noted, normal range of motion, joints normal, no erythema, edema, effusion, or ecchymosis. EXTREMITY: n o clubbing, cyanosis, edema, or deformity with normal ROM in both upper and lower bilateral extremities. NEUROLOGIC: g rossly normal. SKIN: n o rashes, ulcerations, or suspicious lesions. LYMPH NODES: n o cervical adenopathy, nodes normal. MENTAL STATUS: a lert and oriented x3, normal mood and affect. Assessment: * Assessment: 1. L umbar radiculopathy - M54.16 (Primary) 2 . D ecreased testosterone level - E29.1 3 . I nsomnia - G47.00 4 . T ype 2 diabetes mellitus with foot ulcer - E11.621 5 . H ypertension - I10 6 . A nkle pain - M25.579 Plan: * Treatment: 2. A nkle pain Start EpiPen 2-Doug Solution Auto-injector, 0.3 MG/0.3ML, as directed, Injection, once, 1, Refills 11. Referral To:[facility] Reason: * Procedure Codes: * Preventive Medicine: Screenings/Counseling: B ND ACTION PLAN Above Normal BMI Follow-up D ietary management education, guidance, and counseling * * Sign off status: Completed Visit Status: C HK (Check Out) true * Provider: Sarah Mendez ([facility])MD Date: 0 02/22/2025 Generated for Printi ng/Faxing/eTransmitting on: 0 03/05/2025 04:37 PM EDT History and Physical Notes * HPI (History of Present Illness) Category Sub-Category Detail Notes Category Not es General needlasixna dn glycoyrollate filled edema persisting DM _ borderline - stable Examination Category Sub-Category Detail Notes Category Not es Physical Exam GENERAL: well developed, well nourished, in no acute distress HEAD: normocephalic/atraum atic EYES: pupils equal, round and reactive to light, conjunctivae and sclerae normal EARS: no deformity or lesi on of external ear, canals and TM appear normal bilaterally, TM's intact, not inflamed with normal light reflex, hearing grossly normal to conversational speech NOSE: no deformity, discha rge, inflammation, or lesions MOUTH: mucous membranes saba st, normal oropharynx and posterior pharynx without lesions or exudates, tongue normal, dentition normal NECK: neck supple, no mass es or palpable cervical nodes, trachea midline, thyroid without nodules, masses, tenderness, or enlargement CHEST: no chest wall deform ity, no chest wall tenderness LUNGS: normal respiratory e ffort and clear to auscultation, no wheezes, rales, or rhonchi, good air exchange CARDIO: regular rate and rhy thm, normal S1 and S2, nor murmur, rub, or gallop PULSES: normal capillary ref ill ABDOMEN: soft, non-distended, non-tender, no masses RECTAL: MUSCULOSKELETAL: no deformity or scol iosis noted, normal range of motion, joints normal, no erythema, edema, effusion, or ecchymosis EXTREMITY: no clubbing, cyanosi s, edema, or deformity with normal ROM in both upper and lower bilateral extremities NEUROLOGIC: grossly normal SKIN: no rashes, ulceratio ns, or suspicious lesions LYMPH NODES: no cervical adenopat hy, nodes normal MENTAL STATUS: alert and oriented x 3, normal mood and affect Consultation Request Notes Referral Date Referring Provider Referred Provider Not es 02/22/2025 Kareem Mendez Peter
--- OUTSIDE RECORDS SUMMARY | 2025-02-22 11:15 | XMS_ITS ---
Author Organization [facility] in [place] Address [address] [place] [address] Care Team Providers Care Shelver Name Role Phone Andrea Kareem Primary Care Provider Allergies Allergen (clinical drug ingredient) Drug/Non Drug Allergy documented on EMR Reaction Allergy Type Onset Date Status hydrocodone Hydrocodone hives Drug Allergy Act silverio fentanyl Fentanyl hives Drug Allergy Active Reason For Referral Diagnosis 1 Ankle pain (M25.579) Referral Organization [facility] Medicine Referring Provider First Name Kareem Referring [...] 02/22/2025 Encounters Encounter Location Date Provider Diagnosis [facility] [address] [place] [address] 02/22/2025 Kareem Mendez Lumbar radiculopathy M54.16 ; [...] Alden WADE TDOB: 0 (54 yo M)Acc No.[id number]:02/22/2025 Progress Note Patient: Alden VAZQUEZ Provider: Sarah Mendez ([facility])MD :1970 A ge:54 Y S ex:Male Date:02/22/2025 Address:[address] [place] [address] [place], [id number] Check In:03:15 PM ESTCheck O ut:03:44 PM [...] abetes mellitus with diabetic polyneuropathy, unspecified whether correction insulin use Modified On:04/10/2024U Status:confirmed M25.572 Left [...] MG Tablet 1 tablet Orally at bedtime MnbdvhpcyexiFfuzezeo-Cwjcrgdms-EM 3.5-95890-7 Suspension 4 drops into affected ear Otic Three times a day Medication List reviewed and reconciled with the patientDiscontinued Czccrzns-Xwunkarmb-DV 3.5-35874-1 Suspension 4 drops into affected ear Otic [...] Procedure Codes: * Preventive Medicine: Screenings/Counseling: B MN ACTION PLAN Above Normal BMI Follow-up D ietary management education, guidance, and counseling * * Sign off status: Completed Visit Status: C HK (Check Out) true * Provider: Sarah Mendez ([facility])MD Date: 0 02/22/2025 Generated for Printi ng/Faxing/eTransmitting on: 0 03/06/2025 07:04 AM EDT History [...]
[2025-03-05] VITALS (7 sets, daily range): BP systolic 104–149; BP diastolic 69–96; PULSE 64–92; TEMP 36.3–37.3; O2SAT 95–98; BMI 37.2; BMI 34.3
--- OUTSIDE RECORDS SUMMARY | 2025-03-05 16:37 | XMS_ITS | Encounter Summary ---
Author Organization [facility] Address [address] [place] [address] Care Team Providers Care Door Closer Mechanic Name Role Phone Caden Mendez MD Primary Care Provider [phone] Encounter Details Date Type Department Care Team (Late Contact Info) Description 03/11/2023 External Result Encounter [facility] External Department Unsolicited Christiano Geiger MD [address] [place] [id number] Social History Tobacco Use Types Packs/Day Years Used Date Smoking Tobacco: Never Smokeless Tobacco: Never Alcohol Use Standard Drinks/Week Comments Never 0 (1 standard drink = 0.6 oz pur e alcohol) Sex and Gender Information Value Date Recorded Sex Assigned at Not on file Legal Sex Male 7:12 PM EDT Gender Identity Not on file Sexual Orientation Not on file documented as of this encounter Plan of Treatment Upcoming Encounters Date Type Department Care Team (Late st Contact Info) Description 04/04/2025 11:20 AM EDT Office Visit [facility] [address] [facility] [address] [place] [phone] Christiano Geiger MD [address], [place] [address] documented as of this encounter Procedures Procedure Name Priority Date/Time Associated Diagnosis Comments XR CERVICAL SPINE COMPLETE 4-5 VIEWS 03/11/2023 3:44 PM EDT documented in this encounter Results * XR cervical spine complete 4 to 5 views (03/11/2023 3:44 PM EDT) Anatomical Region Laterality Modality Spine, C-spine Radiographic Cecilia ging 03/11/2023 3:44 PM EDT Impressions 03/12/2023 8:34 AM EDT Stable C5-6 fusion changes. Similar degenerative change. Limited assessment of C7-T1 level. Impression dictated by: Crow Contreras M.D.03/11/2023 3:48 PM Dictation Location: [facility]--03 Transcribed By: PWS 03/11/23 1548 Dictated By: Crow Contreras DO 03/11/23 1544 Signed By: <Electronically signed by Crow Contreras DO in OV> 03/11/23 1548 Narrative 03/12/2023 8:34 AM EDT [facility] Main [place] [id number] XRay Report Signed Patient: Alden Garces MR#: [id number] 97 : 1970 Acct:[id number] Age/Sex: 52 / M ADM Date: 03/11/23 Loc: ICXD Room: Type: [facility] Attending Dr: Christiano Geiger MD Copies [...] SOFT TISSUES: Unremarkable XR/XR cervical spine 5V* Procedure Note Radiology, Radiologist, - 03/12/2023 [facility] Main [address] [address] XRay Report Signed Patient: Alden Garces TMR#: [id number] 97 : 1970Acct:[id number] Age/Sex: 52 / MADM Date: 03/11/23 Loc: ICXD Room:Type: [facility] Attending Dr: Christiano Geiger MD Copies [...] C3-4 and C4-5 and bilateral bony neural foraminalnarrowing. DENS: Intact CRANIOCERVICAL JUNCTION: Unremarkable SOFT TISSUES: Unremarkable XR/XR cervical spine 5V* IMPRESSION: Stable C5-6 fusion changes. Similar degenerative change. Limitedassessment of C7-T1 level. Impression dictated by: Crow Contreras M.D.03/11/2023 3:48 PM Dictation Location: [place] [address] Transcribed By: [facility] [place] 03/11/23 1548 Dictated By: Crow Contreras DO 03/11/23 1544 Signed By: <Electronically signed by Crow Contreras DO in OV> 03/11/23 1548 us Christiano Geiger MD IMG XR PROCEDURES Final Resul t documented in this encounter Visit Diagnoses Not on filedocumented in this encounter Care Teams Door Closer Mechanic Relationship Specialty Start Date End Date Caden Mendez MD PCP - General Family Medicine 01/10/24 documented as of this encounter
--- OUTSIDE RECORDS SUMMARY | 2025-03-05 16:37 | XMS_ITS | Encounter Summary ---
Author Organization [facility] Address [address] [place] [address] Care Team Providers Care Computing Systems Mechanic Name Role Phone Caden Mendez MD Primary Care Provider [phone] Encounter Details Date Type Department Care Team ([facility] Contact Info) Description 03/24/2023 Abstract [facility] [address] [place] [phone] Christiano Geiger MD [address] [place] [address] Social History Tobacco Use Types Packs/Day Years Used Date Smoking Tobacco: Never Smokeless Tobacco: Never Tobacco Cessation:Counseling Given: Not Answered Alcohol Use Standard Drinks/Week Comments Never 0 (1 standard drink = 0.6 oz pur e alcohol) Sex and Gender Information Value Date Recorded Sex Assigned at Not on file Legal Sex Male 7:12 PM EDT Gender Identity Not on file Sexual Orientation Not on file documented as of this encounter Plan of Treatment Upcoming Encounters Date Type Department Care Team ([facility] Contact Info) Description 04/04/2025 11:20 AM EDT [facility] [address] [facility] [facility] [address] [place] [phone] Christiano Geiger MD [address] [place] [phone] documented as of this encounter Visit Diagnoses Not on filedocumented in this encounter Care Teams Computing Systems Mechanic Relationship Specialty Start Date End Date Caden Mendez MD PCP - General Family Medicine 01/10/24 documented as of this encounter
--- OUTSIDE RECORDS SUMMARY | 2025-03-05 16:37 | XMS_ITS | Patient Health Record ---
Author Organization [facility] Servic es Address [address] [place] [address] Care Team Providers Care Sewer Hand Name Role Phone Fela Álvarez Primary Care Provider Stephie Calzada Unavailable Reason For Referral No Information Encounters Encounter Location Date Provider Diagnosis [facility] [address] [place] [place] [address] 02/15/2025 Stephie Messina [address] [phone] 01/16/2025 Stephie Messina Cracked tooth K03.81 ; Dental caries on pit and fissure surface penetrating into dentin K02.52 ; Necrosis of pulp K04.1 ; Encounter for dental examination and cleaning with abnormal findings Z01.21 ; Other dental procedure status Z98.818 and Partial loss of teeth, unspecified cause, class I K08.401 Assessments Encounter Date Diagnosis (ICD Code) Assessment Notes Treatment Notes Treatment Clinical Notes Section Notes 01/16/2025 Cracked tooth (ICD-10 - K03.81) 01/16/2025 Dental caries on pit and fissure surface penetrating into dentin (ICD-10 - K02.52) 01/16/2025 Necrosis of pulp (ICD-10 - K04.1) 01/16/2025 Encounter for dental examination and cleaning with abnormal findings (ICD-10 - Z01.21) 01/16/2025 Other dental procedure status (ICD-10 - Z98.818) 01/16/2025 Partial loss of teeth, unspecified cause, class I (ICD-10 - K08.401) Plan Of Treatment No Information Insurance Providers Payer Name Payer Address Payer Phone Subscriber Number Group Number Insured Name Patient Relationship to Insured Coverage Start Date Coverage End Date [employer] [place] [employer] [address] [place] [address] [phone] [id number] MATTY WADE Self - patient is the insured 3 [employer] [place] [employer] [address] [place] [address] [id number] MATTY WADE Self - patient is the insured 3 [employer] [address] [address] [place] [address] [id number] MATTY WADE Self - patient is the insured 5
--- OUTSIDE RECORDS SUMMARY | 2025-03-05 16:38 | XMS_ITS | Encounter Summary ---
Author Organization [facility] Address [address] [place] [address] Care Team Providers Care Information Security Consultant Name Role Phone Caden Mendez MD Primary Care Provider [phone] Encounter Details Date Type Department Care Team ([facility] Contact Info) Description 07/17/2023 Abstract [facility] [address] [place] [phone] Christiano Geiger MD [address] [facility] [address] [place] [id number] Social History Tobacco Use Types Packs/Day Years [...] Encounters Date Type Department Care Team (Late Contact Info) Description 04/04/2025 11:20 AM EDT Office Visit [facility] [address] [place] [phone] Christiano Geiger MD [address] [place] [phone] documented as of this encounter Visit Diagnoses Not on filedocumented in this encounter Care Teams Information Security Consultant Relationship Specialty Start Date End Date Caden Mendez MD PCP - General Family Medicine 01/10/24 documented as of this encounter
--- OUTSIDE RECORDS SUMMARY | 2025-03-05 16:38 | XMS_ITS | Clinical Summary ---
Author Organization [facility] Address [address] [place] [address] Care Team Providers Care Paver Operator Name Role Phone Caden Mendez MD Primary Care Provider [phone] Allergies Active Allergy Reactions Criticality Noted Date Comments Fentanyl Unknown 07/08/2021 Hydrocodone Unknown 07/08/2021 Morphine And Codeine Unknown 07/08/2021 Other 07/08/2021 Other Reaction(s): Unknown, will accelerate blindness in eye Medications biotin 10 MG tablet Take 10 mg by mouth every 12 (twelve) hours. Active carvedilol (Coreg) 25 MG tablet Take 25 mg by mouth in the morning and 25 mg in the evening. Take with meals. Active doxazosin (Cardura) 8 MG tablet Take 8 mg by mouth in the morning. Active doxepin (SINEquan) 10 MG capsule Take 10 mg by mouth as needed at bedtime. Active DULoxetine (Cymbalta) [address] capsule Take 60 mg by mouth in the morning and 60 mg in the evening. Active escitalopram (Lexapro) 20 MG tablet Take 20 mg by mouth in the morning. Active ASPIRIN 81 MG chewable tablet Chew 81 mg in the morning. Active furosemide (Lasix) 20 MG tablet Take 20 mg by mouth in the morning. Active gabapentin (Neurontin) 600 MG tablet Take 600 mg by mouth in the morning and 600 mg before bedtime. Active glycopyrrolate (Robinul) 1 MG tablet Take 1 mg by mouth in the morning and 1 mg before bedtime. 01/23/20 Active Meclizine HCl 25 MG chewable tablet Chew 25 mg 1 (one) time each day at the same time. Active ondansetron (Zofran) 4 MG tablet Take 4 mg by mouth if needed. Active OXcarbazepine (Trileptal) 300 MG tablet Take 300 mg by mouth at bedtime. Active pantoprazole (ProtoNix) 40 MG EC tablet Take 40 mg by mouth in the morning. Take before meals. Active potassium chloride CR (Klor-Con) 10 MEQ ER tablet Take 10 mEq by mouth in the morning. Take with food. . 02/23/20 23 Active simvastatin (Zocor) 20 MG tablet Take 20 mg by mouth at bedtime. Active SUMAtriptan (Imitrex) 100 MG tablet Take 100 mg by mouth 1 (one) time if needed. Active testosterone cypionate (Depo-Testosteron e) 200 MG/ML injection Inject 200 mg into the shoulder, thigh, or buttocks every 14 (fourteen) days. Active tiZANidine (Zanaflex) 4 MG tablet Take 4 mg by mouth at bedtime. Active CeleXA 20 MG tablet 1 (one) time each day at the same time. 06/02/20 23 Active Multiple Vitamins-Minerals (Multi For Him 50+) tablet as directed Orally Active B-D 3CC LUER-SAYRA SYR 23GX1 23G X 1 3 ML misc USE 1 SYRINGE INTRAMUSCULARLY ONCE A WEEK 05/18/20 23 Active CeleBREX 100 MG capsule 1 (one) time each day at the same time Active HYDROcodone-aceta minophen ([place]) 5-325 MG tablet 03/20/20 24 Active cholecalciferol (Vitamin D-3) 125 MCG (5000 UT) capsule 03/15/20 24 Active senna (Senokot) 8.6 MG tablet 03/15/20 24 Active ondansetron ODT (Zofran-ODT) 4 MG disintegrating tablet 03/15/20 24 Active amantadine (Symmetrel) 100 MG tabletIndications :Excessive daytime sleepiness,Primar y insomnia Take 1 tablet (100 mg) by mouth in the morning and at noon 180 tablet 3 04/10/20 24 025 Active hydrOXYzine pamoate (Vistaril) 25 MG capsuleIndication s:Primary insomnia TAKE ONE CAPSULE BY MOUTH ONCE DAILY AT BEDTIME 30 capsule 11 05/11/20 24 Active clonazePAM (KlonoPIN) 1 MG tabletIndications :Primary insomnia Take 1 tablet (1 mg) by mouth at bedtime 30 tablet 2 07/04/20 24 Active Melatonin 10 MG capsuleIndication s:Primary insomnia Take 10 mg by mouth at bedtime 90 capsule 3 07/04/20 24 025 Active thiamine (Vitamin B-1) 100 MG tabletIndications :Excessive daytime sleepiness Take 1 tablet (100 mg) by mouth Daily 30 tablet 11 07/05/20 24 025 Active modafinil (Provigil) 200 MG tabletIndications :Excessive daytime sleepiness,Obstru ctive sleep apnea Take 1 tablet (200 mg) by mouth in the morning and at noon 180 tablet 01/04/20 25 025 Active Active Problems Problem Noted Date Diagnosed Date Cellulitis of left lower extremity 10/08/2024 Open wound of left great toe 10/08/2024 Primary narcolepsy with cataplexy 10/04/2024 Obese 09/24/2024 Closed fracture of right fibula and tibia 2024 Fall at home, initial encounter 09/23/2024 Weakness of left upper extremity 12/29/2023 Left upper extremity numbness 12/29/2023 Herniation of cervical inter vertebral disc with radiculopathy 12/29/2023 Decreased testosterone level 06/24/2023 Degeneration of lumbosacral intervertebral disc 06/24/2023 Diabetes mellitus without complication Hyperhidrosis 06/24/2023 Impotence of organic origin 06/24/2023 Lateral epicondylitis 06/24/2023 Lumbar radiculopathy 06/24/2023 Systolic murmur 06/24/2023 Unspecified inflammatory spondylopathy, lumbar r egion 06/24/2023 Cardiovascular stress test abnormal 06/21/2023 Chest discomfort 06/21/2023 Cubital tunnel syndrome on right 06/21/2023 Benign hypertensive cardiomyopathy with heart fa ilure 06/09/2023 Chronic combined systolic an d diastolic congestive heart failure, NYHA class 2 06/09/2023 Overview (10/15/2024): EF 45-50% with mild DD Diastolic dysfunction with chronic heart failure 06/09/2023 Non-ischemic cardiomyopathy 06/09/2023 Primary insomnia 03/11/2023 Excessive daytime sleepiness 03/11/2023 Cervical paraspinal muscle spasm 03/11/2023 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 06/26/2021 Spinal stenosis in cervical region 10/11/2018 Cervical disc disorder 06/01/2018 Carpal tunnel syndrome of right wrist 03/24/2018 Arthritis of right acromioclavicular joint 12/30 Other chronic pain 12/30/2017 Excessive sweating 12/18/2015 Gastroenteritis 04/10/2015 Senile hyperkeratosis 03/28/2015 Urinary tract infectious disease 06/28/2014 Ankle edema 05/15/2014 Ulnar nerve entrapment 07/14/2013 Gastritis 05/09/2013 Cellulitis 03/31/2013 Disorder of intervertebral disc of lumbar spine 12/02/2012 Muscle pain 12/02/2012 Foot pain 10/07/2012 Clouded consciousness 03/03/2012 Fatigue 03/03/2012 Dyspnea 11/30/2011 Chest pain 11/30/2011 Bursitis 02/27/2011 Upper respiratory infection 12/05/2010 Joint pain 09/03/2009 Hypertensive disorder 10/18/2008 Capillary hemangioma 05/28/2008 Diabetes mellitus 11/22/2007 Migraine 05/03/2007 Anxiety disorder 12/09/2005 Impingement syndrome of shoulder region 01/26/20 03 Obstructive sleep apnea 11/06/2002 History of vasectomy 02/08/1998 Encounters Date Type Department Care Team Description 01/03/2025 2:40 PM EDT Office Visit [facility] [address] [place] [phone] Christiano Geiger MD Primary narcolepsy with cataplexy (HCC) (Primary Dx); Excessive daytime sleepiness; Obstructive sleep apnea 01/03/2025 Bamboo flowsheet [facility] [address] [place] [phone] Christiano Geiger MD 01/03/2025 Travel 12/11/2024 4:10 PM EDT Telemedicine [facility] [address] [place] [phone] Christiano Geiger MD Cubital tunnel syndrome on right (Primary Dx); Cervical paraspinal muscle spasm; Degeneration of intervertebral disc of lumbosacral region with discogenic back pain and lower extremity pain; Narcolepsy cataplexy syndrome (HCC) 12/11/2024 Travel 12/09/2024 Travel from Last 3 Months Family History Medical History Relation Name Comments Diabetes Father Glaucoma Mother Relation Name Status Comments Father Alive Mother Alive Social History Tobacco Use Types Packs/Day Years Used Date Smoking Tobacco: Never Smokeless Tobacco: Never Tobacco Cessation:Counseling Given: Not Answered Alcohol Use Standard Drinks/Week Comments Not Currently 0 (1 standard drink = 0.6 oz pur e alcohol) Sex and Gender Information Value Date Recorded Sex Assigned at Not on file Legal Sex Male 7:12 PM EDT Gender Identity Not on file Sexual Orientation Not on file Last Filed Vital Signs Vital Sign Reading Time Taken Comments Blood Pressure 122/78 03/27/2024 9:20 AM EDT Pulse - - Temperature - - Respiratory Rate - - Oxygen Saturation - - Inhaled Oxygen Concentration - - Weight 125 kg (275 lb) 01/03/2025 2:44 PM EDT Height 188 cm (6' 2 ) 01/03/2025 2:44 PM EDT Body Mass Index 35.31 01/03/2025 2:44 PM EDT Plan of Treatment Upcoming Encounters Date Type Department Care Team (Late st Contact Info) Description 04/04/2025 11:20 AM EDT Office Visit [facility] [address] [facility] [address] [place] [address] Christiano Geiger MD [address] [facility] [address] [place] [address] Health Maintenance Due Date Last Done Comments CT Colonography 1969 Colonoscopy 1969 Colorectal Cancer Screening 1970 FIT-DNA 1970 FIT 1970 FOBT 1970 Sigmoidoscopy 1969 Influenza Vaccine Completed 07/07/2024, , 07/15/2022, Additional history exists Insurance [employer] [employer] [place] Care Teams Paver Operator Relationship Specialty Start Date End Date Caden Mendez MD PCP - General Family Medicine 01/10/24
--- OUTSIDE RECORDS SUMMARY | 2025-03-05 16:38 | XMS_ITS | Clinical Summary ---
Author Organization [facility] Address [address] [place] [address] Care Team Providers Care Chairman & Co Founder Name Role Phone Caden Mendez MD Primary Care Provider [phone] Allergies No known active allergies Medications traMADOL 50 mg tablet Take 50 mg by mouth every 6 hours as needed. Active pregabalin (LYRICA) 300 mg capsule Take 300 mg by mouth twice daily. Active DICLOFENAC SODIUM/MISOPROST OL (ARTHROTEC 75 ORAL) Take by mouth twice daily. Active DULoxetine 60 mg capsule Take 60 mg by mouth twice daily. Active DIVALPROEX SODIUM (DIVALPROEX ORAL) Take 250 mg by mouth once daily. Active HYDROcodone-Acet aminophen (VICODIN) 5-300 mg Tab Take 1 tablet by mouth every 6 hours as needed. Active Family History Medical History Relation Comments Coronary Artery Disease Father Hypertension Father Blindness Maternal Grandmother Cataract Maternal Grandmother Glaucoma Maternal Grandmother Glaucoma Mother Blindness Paternal Grandmother Cataract Paternal Grandmother Relation Status Comments Father Maternal Grandmother Mother Paternal Grandmother Social History Tobacco Use Types Packs/Day Years Used Date Smoking Tobacco: Never Alcohol Use Standard Drinks/Week Comments Yes 0 (1 standard drink = 0.6 oz pur e alcohol) sparingly Sex and Gender Information Value Date Recorded Sex Assigned at Not on file Legal Sex Male 10:16 AM EST Gender Identity Not on file Sexual Orientation Not on file Last Filed Vital Signs Vital Sign Reading Time Taken Comments Blood Pressure 144/102 04/06/2012 12:54 PM EDT Pulse 84 04/06/2012 12:54 PM EDT Temperature 37.1 C (98.7 F) 04/06/2012 12:54 PM EDT Respiratory Rate - - Oxygen Saturation - - Inhaled Oxygen Concentration - - Weight 107.5 kg (237 lb) 04/06/2012 12:54 PM EDT Height - - Body Mass Index - - Plan of Treatment Health Maintenance Due Date Last Done Comments Anxiety Screening 1987 Depression Screening 1987 HIV Screening 1987 Hepatitis C Screening 1987 DTaP,Tdap,Td Vaccine (1 - Tdap) 1988 Hepatitis B Vaccine (1 of 3 - 19+ 3-dose series) 10/[address] Colonography 2014 Cologuard (FIT-DNA) 2014 Colonoscopy 2014 Colorectal Cancer Screening 2014 Fecal Occult Blood 2014 Prostate Cancer Screening Discussion 2014 Sigmoidoscopy 2014 Diabetes Screening 05/17/2015 05/17/2012 Pneumococcal Vaccine: 50+ (1 of 1 - PCV) 2019 Shingrix Vaccine (1 of 2) 2019 Covid-19 Vaccine (1 - 2023- season) 2024 Influenza Vaccine (Season Ended) 2025 Procedures Procedure Name Priority Date/Time Associated Diagnosis Comments COMPREHENSIVE METABOLIC PANEL Routine 05/17/2012 1:47 PM EDT Myalgia from Last 3 Months or Most Recently Relevant to Health Maintenance Results * (ABNORMAL) COMP METABOLIC PANEL (05/17/2012 1:47 PM EDT) Protein, Total 7.5 6.0 - 8.4 g/dL [facility] Albumin 4.8 3.5 - 5.0 g/dL [facility] Calcium 9.6 8.5 - 10.5 mg/dL [facility] Bilirubin, Total 0.3 0.0 - 1.5 mg/dL [facility] Alkaline Phosphatase 70 40 - 150 U/L [facility] AST 20 7 - 40 U/L [facility] Glucose 54(L) 65 - 100 mg/dL [facility] BUN 25 10 - 25 mg/dL [facility] Creatinine 1.00 0.70 - 1.40 mg/dL [facility] Sodium 143 135 - 146 mmol/L [facility] Potassium 3.5 3.5 - 5.0 mmol/L [facility] Chloride 104 98 - 110 mmol/L [facility] CO2 28 23 - 32 mmol/L [facility] Anion Gap 11 0 - 15 mmol/L [facility] ALT 30 5 - 50 U/L [facility] eGFR- >60 [facility] eGFR-All Other Races >60 . [facility] Comment: eGFR (Estimated GFR) Units of measure: mL/min/1.73 meters squared eGFR is derived from the reexpressed MDRD Study equation using the following parameters: serum creatinine, age, gender and race. The creatinine assay has been calibrated to be traceable to IDMS. An eGFR <60 mL/min/1.73m2 for >3 months is consistent with chronic kidney disease. Refer to KDOQI guidelines for clinical interpretation. Blood specimen (specimen) BLOOD SPECIMEN / Unknown 05/17/2012 1:47 PM EDT 05/17/2012 1:49 PM EDT Joan Smith MD LABORATORY Final Result [facility] [address] [place] [address] from Last 3 Months or Most Recently Relevant to Health Maintenance Insurance [employer] [employer] [place] Care Teams Chairman & Co Founder Relationship Specialty Start Date End Date Caden Mendez MD PCP - General Family Medicine 03/08/12
--- NOTE | 2025-03-05 17:37 | XR_ITS ---
[facility] [place] [id number] Patient Name: MATTY WADE MRN: [id number] date: 1970 Sex: M Assigned Patient Location: ER Current Patient Location: Accession/Order Number: [id number] Exam Date: 03/05/2025 18:27 Report Date: 03/05/2025 18:33 At the request of: FABRICIO RYAN Procedure: XR ankle RT min 3V XR ankle RT min 3V 03/05/2025 5:53 PM SIGNS AND SYMPTOMS: Right ankle pain PROTOCOL: Frontal, lateral, and oblique radiographs of the right ankle COMPARISON: 09/23/2024 FINDINGS: There is evidence of interval hardware fixation of the distal tibial fracture. No hardware complications. There is a healing fracture of the distal fibula. Remote bony fragments are separate from the distal fibula. The ankle mortise is intact. There is diffuse soft tissue swelling. There is achilles surface calcaneal spurring. There is a similar linear radiodense foreign body in the soft tissues along the second and third metatarsals. XR/XR ankle RT min 3V IMPRESSION: No acute bony injury. Diffuse soft tissue swelling is noted. There is evidence of interval hardware fixation of the distal tibial fracture. No hardware complications. There is a healing fracture of the distal fibula. There is a similar linear radiodense foreign body in the soft tissues along the second and third metatarsals. Impression dictated by: Francis Irving M.D. 03/05/2025 6:33 PM Dictation Location: [place] [address] Electronically authenticated by: [id number] Y Date: 03/05/2025 18:33
--- NOTE | 2025-03-05 19:08 | ECG_ITS ---
[facility] Test Date: 2025-03-05 Pat Name: MATTY WADE Department: Room: - Gender: Male President And Chief Operating Officer: : 1970 Requested By: 0923 Order Number: [id number] Reading MD: RAMIRO WALLS M.D. Measurements Intervals Marcellus Rate: 76 P: 60 WI: 178 QRS: 69 QRSD: 100 T: 46 QT: 406 QTc: 437 Interpretive Statements 1100 Sinus rhythm 0102 ARTIFACT PRESENT 9110 normal ECG Compared to ECG 09/23/2024 05:51:07 No significant changes Electronically Signed On 03-06-2025 9:29:34 EDT by RAMIRO WALLS M.D.
[2025-03-05] MEDS: 0.9 % SODIUM CHLORIDE 1,000 ML 1000 ML IV (20:30)
[2025-03-05] MEDS: MORPHINE SULFATE 2 MG/ML SYRINGE IV (20:30)
[2025-03-05] MEDS: ONDANSETRON PF 4 MG/2 ML VIAL IV (20:34)
[2025-03-05 20:36] LABS: Basophils Percent Auto 0.6 % (0.2-2.0); Eosinophils Absolute Auto 0.1 10^3/uL (0.0-0.7); Eosinophils Percent Auto 1.1 % (0.9-7.0); Hematocrit 41.9 % (42.0-54.0); Immature Granulocytes Abs Auto 0.05 10^3/uL (0.00-0.03); Immature Granulocytes Pct Auto 0.8 % (0.0-0.5); Lymphocytes Absolute Auto 0.9 10^3/uL (1.2-3.8); Lymphocytes Percent Auto 13.4 % (20.5-60.0); Mean Corpuscular HGB Conc 33.4 g/dL (29.9-35.2); Mean Corpuscular Hemoglobin 29.1 pg (25.9-34.0); Mean Corpuscular Volume 87.1 fL (80.0-94.0); Mean Platelet Volume 9.6 fL (9.5-13.5); Monocytes Absolute Auto 0.7 10^3/uL (0.3-0.8); Monocytes Percent Auto 10.5 % (1.7-12.0); Neutrophils Absolute Auto 4.9 10^3/uL (1.4-6.5); Neutrophils Percent Auto 73.6 % (43.0-75.0); Platelet Count 156 10^3/uL (150-450); Red Blood Count 4.81 10^6/uL (4.70-6.10); Red Cell Distribution Width 14.5 % (11.0-15.0); White Blood Count 6.7 10^3/uL (4.0-11.0)
[2025-03-05] MEDS: APIXABAN 5 MG TABLET 10 MG PO (20:38)
[2025-03-05] MEDS: PIPERACILLIN SODIUM/TAZOBACTAM 3.375 GM in 0.9 % SODIUM CHLORIDE 50 ML IV (20:38)
--- NOTE | 2025-03-05 20:46 | ED.GENADUL1 ---
Documented by User: Jess Castañeda 03/05/25 20:49 HPI HPI - General Adult General Chief complaint: Extremity Injury, Lower Stated complaint: PAIN IN R ANKLE Time Seen by Provider: 03/05/25 17:36 Source: patient Limitations: no limitations History of Present Illness HPI narrative: 54-year-old male presents here chief complaint right lower extremity pain redness and swelling patient states pain began several days ago. He has a history of multiple lower extremity surgeries. He denies any known injury or trauma. Right lower extremity tenderness is noted on exam. He complains of fever and chills. Patient has seen her banking teacher Dr. Hernan Gauthier in the past. He is not currently taking any antibiotics. Related Data Home Medications ?Medication ?Instructions ?Recorded ?Confirmed carvedilol 25 mg tablet 25 mg PO BID 06/14/23 03/05/25 doxazosin 8 mg tablet 8 mg PO DAILY 06/14/23 03/05/25 furosemide 20 mg tablet 20 mg PO DAILY 06/14/23 03/05/25 gabapentin 600 mg tablet 1,200 mg PO .QHS 06/14/23 03/05/25 glycopyrrolate 1 mg tablet 1 mg PO BID 06/14/23 03/05/25 hydroxyzine pamoate 25 mg capsule 25 mg PO QPM 06/14/23 03/05/25 pantoprazole 40 mg tablet,delayed 40 mg PO DAILY 06/14/23 03/05/25 release simvastatin 20 mg tablet 20 mg PO .qhs 06/14/23 03/05/25 modafinil 200 mg tablet 200 mg PO BID 09/04/23 03/05/25 potassium chloride 10 mEq 10 meq PO Q12H 09/04/23 03/05/25 tablet,extended release amantadine HCl 100 mg tablet 100 mg PO BID 12/28/23 03/05/25 cholecalciferol (vitamin D3) 125 5,000 unit PO DAILY 12/28/23 03/05/25 mcg (5,000 unit) capsule melatonin 10 mg capsule 10 mg PO .qhs 12/28/23 03/05/25 multivitamin (Daily Multi-Vitamin 1 tab PO DAILY 12/28/23 03/05/25 tablet) biotin 10 mg tablet 10 mg PO DAILY 09/19/24 03/05/25 citalopram 40 mg tablet 40 mg PO DAILY 09/20/24 03/05/25 gabapentin 600 mg tablet 600 mg PO DAILY 09/20/24 03/05/25 (Neurontin) testosterone cypionate 200 mg/mL 300 mg IM Q14D 09/20/24 03/05/25 intramuscular oil acetaminophen 500 mg tablet mg 03/05/25 Previous Rx's ?Medication ?Instructions ?Recorded aspirin 81 mg tablet,delayed 81 mg PO BID 30 days #60 tabs 01/03/24 release (Adult Low Dose Aspirin) Allergies Allergy/AdvReac Type Severity Reaction Status Date / Time No Known Drug Allergies Allergy Verified 03/05/25 16:28 Opioid HPI Opioid Management Most Recent Opioid Data: Last Pain Scale 8 Today, 20:30 Last MAR Pain Assessment Today, 20:30 Last ORT Total Score 6 09/19/24, 22:17 Last ORT Risk Category Moderate Risk 09/19/24, 22:17 Review of Systems ROS Status of ROS 10 or more systems reviewed and unremarkable except as noted in history and below [facility] Medical History Prolonged emergence from general anesthesia ?T88.59XA - Other complications of anesthesia, initial encounter (ICD-10) Pain management contract signed ?Z02.89 - Encounter for other administrative examinations (ICD-10) Back pain ?M54.9 - Dorsalgia, unspecified (ICD-10) PTSD (post-traumatic stress disorder) ?F43.10 - Post-traumatic stress disorder, unspecified (ICD-10) Depression ?F32.A - Depression, unspecified (ICD-10) Dysphagia ?R13.10 - Dysphagia, unspecified (ICD-10) Uvulitis ?K12.2 - Cellulitis and abscess of mouth (ICD-10) Insomnia ?G47.00 - Insomnia, unspecified (ICD-10) Migraine ?G43.909 - Migraine, unspecified, not intractable, without status migrainosus (ICD-10) GERD (gastroesophageal reflux disease) ?K21.9 - Gastro-esophageal reflux disease without esophagitis (ICD-10) Dyspnea on exertion ?R06.09 - Other forms of dyspnea (ICD-10) Heart valve disorder ?I38 - Endocarditis, valve unspecified (ICD-10) Hypoglycemia ?E16.2 - Hypoglycemia, unspecified (ICD-10) Delayed recovery from anesthesia Chronic foot ulcer ?L97.509 - Non-pressure chronic ulcer of other part of unspecified foot with unspecified severity (ICD-10) 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 - Central serous chorioretinopathy, unspecified eye (ICD-10) Chronic pain ?G89.29 - Other chronic pain (ICD-10) Narcolepsy ?G47.419 - 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) Anxiety ?F41.9 - Anxiety disorder, unspecified (ICD-10) Upper back pain ?M54.9 - Dorsalgia, unspecified (ICD-10) Low back pain ?M54.50 - Low back pain, unspecified (ICD-10) TMJ (dislocation of temporomandibular joint) ?S03.00XA - Dislocation of jaw, unspecified side, initial encounter (ICD-10) Obesity ?E66.9 - Obesity, unspecified (ICD-10) Sleep apnea ?G47.30 - Sleep apnea, unspecified (ICD-10) Hypertension ?I10 - Essential (primary) hypertension (ICD-10) Surgical History H/O foot surgery ?Z98.890 - Other specified postprocedural states (ICD-10) H/O radiofrequency ablation (RFA) of nerve of lumbar spine ?Z98.890 - Other specified postprocedural states (ICD-10) History of fusion of cervical spine ?Z98.1 - Arthrodesis status (ICD-10) H/O inguinal hernia repair ?Z98.890 - Other specified postprocedural states (ICD-10) ?Z87.19 - Personal history of other diseases of the digestive system (ICD-10) H/O repair of rotator cuff ?Z98.890 - Other specified postprocedural states (ICD-10) History of uvulopalatopharyngoplasty ?Z98.890 - Other specified postprocedural states (ICD-10) Family History Other Family history of diabetes mellitus Family history of hypertension Family history of myocardial infarction Family history of stroke Social History Within the past year, how often did you have a drink containing alcohol: monthly or less Smoking status: Never smoker Non-prescribed substance use: cannabis (any form) Previous occupational history: unemployed Highest level of school completed/degree received: some college, no degree Are you now , , , , never or living with a partner: Little interest or pleasure in doing things: not at all Feeling down, depressed, or hopeless: not at all Feel stressed/tense/nervous/anxious/difficulty sleeping: not at all Do you think of yourself as: don't know Gender Identity: male Exam Narrative Exam Narrative: All Systems are negative except as noted/marked.All systems reviewed and otherwise negative Nurses note and vital signs reviewed and patient is not hypoxic. General: The patient appears well and in no apparent distress. Patient is resting comfortably on cart. Skin: Warm, dry, no pallor noted. Head: Normocephalic, atraumatic Eye: Normal conjunctiva, no drainage, EOMI. PERRL Ears, Nose, Mouth, and Throat: oral mucosa is moist. Nares patent. Mouth without vesicles. Ear canals patent. Tm's without Erythema Cardiovascular: Regular Rate and Rhythm Respiratory: Patient is in no distress, no accessory muscle use, lungs are clear to auscultation, no wheezing, rales or rhonchi Back: non-tender, no CVA tenderness bilaterally to percussion. GI: Normal bowel sounds, no tenderness to palpation, no masses appreciated. No rebound, guarding, or rigidity noted. Musculoskeletal: right lower extremity pain, swelliing, redness, The patient has evidence of right calf tenderness, no pitting edema, symmetrical pulses noted bilaterally Neurological: A&O x4, normal speech Psychiatric: Cooperative Constitutional Vital Signs, click to edit/add: Last Vital Signs Temp 99.1 F 03/05/25 16:28 Pulse 92 H 03/05/25 16:28 Resp 20 03/05/25 16:28 BP 126/93 H 03/05/25 16:28 Pulse Ox 98 03/05/25 16:28 O2 Del Method Room Air 03/05/25 16:28 Course Vital Signs Vital signs: Vital Signs Temperature 99.1 F 03/05/25 16:28 Pulse Rate 92 H 03/05/25 16:28 Respiratory Rate 20 03/05/25 16:28 Blood Pressure 126/93 H 03/05/25 16:28 Pulse Oximetry 98 03/05/25 16:28 Oxygen Delivery Method Room Air 03/05/25 16:28 Temperature 99.1 F 03/05/25 16:28 Pulse Rate 92 H 03/05/25 16:28 Respiratory Rate 20 03/05/25 16:28 Blood Pressure 126/93 H 03/05/25 16:28 Pulse Oximetry 98 03/05/25 16:28 Oxygen Delivery Method Room Air 03/05/25 16:28 Medical Decision Making MDM Narrative Medical decision making narrative: 54-year-old male presents here chief complaint right lower extremity pain redness and swelling patient states pain began several days ago. He has a history of multiple lower extremity surgeries. He denies any known injury or trauma. Right lower extremity tenderness is noted on exam. He complains of fever and chills. Patient has seen her banking teacher Dr. Hernan Gauthier in the past. He is not currently taking any antibiotics. Differential Diagnosis Differential Diagnosis: cellulitis, dvt Medical Records Medical records reviewed: Yes I reviewed the patient's medical records Lab Data Lab results reviewed: Yes I reviewed the patient's lab results Labs: Lab Results 03/05/25 Range/Units 20:10 WBC 6.7 (4.0-11.0) 10^3/uL RBC 4.81 (4.70-6.10) 10^6/uL Hgb 14.0 (14.0-18.0) g/dL Hct 41.9 L (42.0-54.0) % MCV 87.1 (80.0-94.0) fL MCH 29.1 (25.9-34.0) pg MCHC 33.4 (29.9-35.2) g/dL RDW 14.5 (11.0-15.0) % Plt Count 156 (150-450) 10^3/uL MPV 9.6 (9.5-13.5) fL Neut % (Auto) 73.6 (43.0-75.0) % Lymph % (Auto) 13.4 L (20.5-60.0) % [place] % (Auto) 10.5 (1.7-12.0) % Eos % (Auto) 1.1 (0.9-7.0) % Baso % (Auto) 0.6 (0.2-2.0) % Neut # (Auto) 4.9 (1.4-6.5) 10^3/uL Lymph # (Auto) 0.9 L (1.2-3.8) 10^3/uL [place] # (Auto) 0.7 (0.3-0.8) 10^3/uL Eos # (Auto) 0.1 (0.0-0.7) 10^3/uL Baso # (Auto) 0.0 (0.0-0.1) 10^3/uL Abs Immat Gran (auto) 0.05 H (0.00-0.03) 10^3/uL Imm/Tot Granulo (auto) 0.8 H (0.0-0.5) % PT 12.7 H (9.0-11.6) sec INR 1.22 APTT 35.3 (22.3-36.2) sec Sodium 140 (136-145) mmol/L Potassium 4.1 (3.5-5.1) mmol/L Chloride 101 (98-107) mmol/L Carbon Dioxide 32.4 H (21.0-32.0) mmol/L Anion Gap 10.7 BUN 13.0 (7.0-18.0) mg/dL Creatinine 0.88 (0.70-1.30) mg/dL Est GFR ( Amer) >60 (>=60 mL/min/1.73m^2) Est GFR (Non-Af Amer) >60 (>=60 mL/min/1.73m^2) BUN/Creatinine Ratio 14.8 Glucose 101 (74-106) mg/dL Lactate 1.2 (0.4-2.0) mmol/L Calcium 10.0 (8.5-10.1) mg/dL Total Bilirubin 0.6 (0.2-1.0) mg/dL AST 19 (15-37) U/L ALT 21 (16-63) U/L Alkaline Phosphatase 244 H (46-116) U/L Troponin I High Sens 7.3 (4.0-76.1) pg/mL NT-Pro-B Natriuret Pep 170.0 (<=900.0) pg/mL Total Protein 8.1 (6.4-8.2) g/dL Albumin 3.5 (3.4-5.0) g/dL Globulin 4.6 g/dL Albumin/Globulin Ratio 0.8 Imaging Data Venous US: Radiologist's impression: ITS Impressions Ankle X-Ray 03/05/25 17:37 IMPRESSION: No acute bony injury. Diffuse soft tissue swelling is noted. There is evidence of interval hardware fixation of the distal tibial fracture. No hardware complications. There is a healing fracture of the distal fibula. There is a similar linear radiodense foreign body in the soft tissues along the second and third metatarsals. Impression dictated by: Francis Irving M.D. 03/05/2025 6:33 PM Dictation Location: [employer] Electronically authenticated by: [id number] Y Date: 03/05/2025 18:33 Discharge Plan Discharge Chief Complaint: Extremity Injury, Lower Clinical Impression: Leg pain, right, Cellulitis of right leg, DVT (deep venous thrombosis) Patient Disposition: Admitted as Observation Time of Disposition Decision: 20:42 Condition: Good Documented by User: Crow Glass MD 03/05/25 21:12 HPI HPI - General Adult General Chief complaint: Extremity Injury, Lower Stated complaint: PAIN IN R ANKLE Time Seen by Provider: 03/05/25 17:36 History of Present Illness HPI narrative: 54-year-old male presents here chief complaint right lower extremity pain redness and swelling patient states pain began several days ago. He has a history of multiple lower extremity surgeries. He denies any known injury or trauma. Right lower extremity tenderness is noted on exam. He complains of fever and chills. Patient has seen her banking teacher Dr. Hernan Gauthier in the past. He is not currently taking any antibiotics. Related Data Home Medications ?Medication ?Instructions ?Recorded ?Confirmed carvedilol 25 mg tablet 25 mg PO BID 06/14/23 03/05/25 doxazosin 8 mg tablet 8 mg PO DAILY 06/14/23 03/05/25 furosemide 20 mg tablet 20 mg PO DAILY 10/02/23 06/23/25 gabapentin 600 mg tablet 1,200 mg PO .QHS 06/14/23 03/05/25 glycopyrrolate 1 mg tablet 1 mg PO BID 06/14/23 03/05/25 hydroxyzine pamoate 25 mg capsule 25 mg PO QPM 06/14/23 03/05/25 pantoprazole 40 mg tablet,delayed 40 mg PO DAILY 06/14/23 03/05/25 release simvastatin 20 mg tablet 20 mg PO .qhs 06/14/23 03/05/25 modafinil 200 mg tablet 200 mg PO BID 09/04/23 03/05/25 potassium chloride 10 mEq 10 meq PO Q12H 09/04/23 03/05/25 tablet,extended release amantadine HCl 100 mg tablet 100 mg PO BID 12/28/23 03/05/25 cholecalciferol (vitamin D3) 125 5,000 unit PO DAILY 12/28/23 03/05/25 mcg (5,000 unit) capsule melatonin 10 mg capsule 10 mg PO .qhs 12/28/23 03/05/25 multivitamin (Daily Multi-Vitamin 1 tab PO DAILY 12/28/23 03/05/25 tablet) biotin 10 mg tablet 10 mg PO DAILY 09/19/24 03/05/25 citalopram 40 mg tablet 40 mg PO DAILY 09/20/24 03/05/25 gabapentin 600 mg tablet 600 mg PO DAILY 09/20/24 03/05/25 (Neurontin) testosterone cypionate 200 mg/mL 300 mg IM Q14D 09/20/24 03/05/25 intramuscular oil acetaminophen 500 mg tablet mg 03/05/25 Previous Rx's ?Medication ?Instructions ?Recorded aspirin 81 mg tablet,delayed 81 mg PO BID 30 days #60 tabs 01/03/24 release (Adult Low Dose Aspirin) Allergies Allergy/AdvReac Type Severity Reaction Status Date / Time No Known Drug Allergies Allergy Verified 03/05/25 16:28 Opioid HPI Opioid Management Most Recent Opioid Data: Last Pain Scale 8 Today, 20:30 Last MAR Pain Assessment Today, 20:30 Last ORT Total Score 6 09/19/24, 22:17 Last ORT Risk Category Moderate Risk 09/19/24, 22:17 [facility] Medical History Prolonged emergence from general anesthesia ?T88.59XA - Other complications of anesthesia, initial encounter (ICD-10) Pain management contract signed ?Z02.89 - Encounter for other administrative examinations (ICD-10) Back pain ?M54.9 - Dorsalgia, unspecified (ICD-10) PTSD (post-traumatic stress disorder) ?F43.10 - Post-traumatic stress disorder, unspecified (ICD-10) Depression ?F32.A - Depression, unspecified (ICD-10) Dysphagia ?R13.10 - Dysphagia, unspecified (ICD-10) Uvulitis ?K12.2 - Cellulitis and abscess of mouth (ICD-10) Insomnia ?G47.00 - Insomnia, unspecified (ICD-10) Migraine ?G43.909 - Migraine, unspecified, not intractable, without status migrainosus (ICD-10) GERD (gastroesophageal reflux disease) ?K21.9 - Gastro-esophageal reflux disease without esophagitis (ICD-10) Dyspnea on exertion ?R06.09 - Other forms of dyspnea (ICD-10) Heart valve disorder ?I38 - Endocarditis, valve unspecified (ICD-10) Hypoglycemia ?E16.2 - Hypoglycemia, unspecified (ICD-10) Delayed recovery from anesthesia Chronic foot ulcer ?L97.509 - Non-pressure chronic ulcer of other part of unspecified foot with unspecified severity (ICD-10) 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 - Central serous chorioretinopathy, unspecified eye (ICD-10) Chronic pain ?G89.29 - Other chronic pain (ICD-10) Narcolepsy ?G47.419 - 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) Anxiety ?F41.9 - Anxiety disorder, unspecified (ICD-10) Upper back pain ?M54.9 - Dorsalgia, unspecified (ICD-10) Low back pain ?M54.50 - Low back pain, unspecified (ICD-10) TMJ (dislocation of temporomandibular joint) ?S03.00XA - Dislocation of jaw, unspecified side, initial encounter (ICD-10) Obesity ?E66.9 - Obesity, unspecified (ICD-10) Sleep apnea ?G47.30 - Sleep apnea, unspecified (ICD-10) Hypertension ?I10 - Essential (primary) hypertension (ICD-10) Surgical History H/O foot surgery ?Z98.890 - Other specified postprocedural states (ICD-10) H/O radiofrequency ablation (RFA) of nerve of lumbar spine ?Z98.890 - Other specified postprocedural states (ICD-10) History of fusion of cervical spine ?Z98.1 - Arthrodesis status (ICD-10) H/O inguinal hernia repair ?Z98.890 - Other specified postprocedural states (ICD-10) ?Z87.19 - Personal history of other diseases of the digestive system (ICD-10) H/O repair of rotator cuff ?Z98.890 - Other specified postprocedural states (ICD-10) History of uvulopalatopharyngoplasty ?Z98.890 - Other specified postprocedural states (ICD-10) Family History Other Family history of diabetes mellitus Family history of hypertension Family history of myocardial infarction Family history of stroke Social History Within the past year, how often did you have a drink containing alcohol: monthly or less Smoking status: Never smoker Non-prescribed substance use: cannabis (any form) Previous occupational history: unemployed Highest level of school completed/degree received: some college, no degree Are you now , , , , never or living with a partner: Little interest or pleasure in doing things: not at all Feeling down, depressed, or hopeless: not at all Feel stressed/tense/nervous/anxious/difficulty sleeping: not at all Do you think of yourself as: don't know Gender Identity: male Exam Constitutional Vital Signs, click to edit/add: Last Vital Signs Temp 99.1 F 03/05/25 16:28 Pulse 92 H 03/05/25 16:28 Resp 20 03/05/25 16:28 BP 126/93 H 03/05/25 16:28 Pulse Ox 98 03/05/25 16:28 O2 Del Method Room Air 03/05/25 16:28 Course Vital Signs Vital signs: Vital Signs Temperature 99.1 F 03/05/25 16:28 Pulse Rate 92 H 03/05/25 16:28 Respiratory Rate 20 03/05/25 16:28 Blood Pressure 126/93 H 03/05/25 16:28 Pulse Oximetry 98 03/05/25 16:28 Oxygen Delivery Method Room Air 03/05/25 16:28 Temperature 99.1 F 03/05/25 16:28 Pulse Rate 92 H 03/05/25 16:28 Respiratory Rate 20 03/05/25 16:28 Blood Pressure 126/93 H 03/05/25 16:28 Pulse Oximetry 98 03/05/25 16:28 Oxygen Delivery Method Room Air 03/05/25 16:28 Medical Decision Making MDM Narrative Medical decision making narrative: 54-year-old male presents here chief complaint right lower extremity pain redness and swelling patient states pain began several days ago. He has a history of multiple lower extremity surgeries. He denies any known injury or trauma. Right lower extremity tenderness is noted on exam. He complains of fever and chills. Patient has seen her banking teacher Dr. Vallejo in the past. He is not currently taking any antibiotics. I, Dr Glass, have reviewed the above progress note and course of action in the ER; agree with the above. I have personally gone over history and physical, and discussed disposition and treatment plan with the PA. Patient was seen by Jess Castañeda PA-C. Patient case was staffed with Dr. Jean, not Dr. Glass. Patient's case was transitioned to Dr. Jean at 1920 and patient case was presented by Jess to Dr. Jean. Patient had lengthy stay in the ER, secondary to high ER volume, but Dr. Glass never saw or evaluated this patient is not aware of this patient's case. Lab Data Labs: Lab Results 03/05/25 Range/Units 20:10 WBC 6.7 (4.0-11.0) 10^3/uL RBC 4.81 (4.70-6.10) 10^6/uL Hgb 14.0 (14.0-18.0) g/dL Hct 41.9 L (42.0-54.0) % MCV 87.1 (80.0-94.0) fL MCH 29.1 (25.9-34.0) pg MCHC 33.4 (29.9-35.2) g/dL RDW 14.5 (11.0-15.0) % Plt Count 156 (150-450) 10^3/uL MPV 9.6 (9.5-13.5) fL Neut % (Auto) 73.6 (43.0-75.0) % Lymph % (Auto) 13.4 L (20.5-60.0) % [place] % (Auto) 10.5 (1.7-12.0) % Eos % (Auto) 1.1 (0.9-7.0) % Baso % (Auto) 0.6 (0.2-2.0) % Neut # (Auto) 4.9 (1.4-6.5) 10^3/uL Lymph # (Auto) 0.9 L (1.2-3.8) 10^3/uL [place] # (Auto) 0.7 (0.3-0.8) 10^3/uL Eos # (Auto) 0.1 (0.0-0.7) 10^3/uL Baso # (Auto) 0.0 (0.0-0.1) 10^3/uL Abs Immat Gran (auto) 0.05 H (0.00-0.03) 10^3/uL Imm/Tot Granulo (auto) 0.8 H (0.0-0.5) % PT 12.7 H (9.0-11.6) sec INR 1.22 APTT 35.3 (22.3-36.2) sec Sodium 140 (136-145) mmol/L Potassium 4.1 (3.5-5.1) mmol/L Chloride 101 (98-107) mmol/L Carbon Dioxide 32.4 H (21.0-32.0) mmol/L Anion Gap 10.7 BUN 13.0 (7.0-18.0) mg/dL Creatinine 0.88 (0.70-1.30) mg/dL Est GFR ( Amer) >60 (>=60 mL/min/1.73m^2) Est GFR (Non-Af Amer) >60 (>=60 mL/min/1.73m^2) BUN/Creatinine Ratio 14.8 Glucose 101 (74-106) mg/dL Lactate 1.2 (0.4-2.0) mmol/L Calcium 10.0 (8.5-10.1) mg/dL Total Bilirubin 0.6 (0.2-1.0) mg/dL AST 19 (15-37) U/L ALT 21 (16-63) U/L Alkaline Phosphatase 244 H (46-116) U/L Troponin I High Sens 7.3 (4.0-76.1) pg/mL NT-Pro-B Natriuret Pep 170.0 (<=900.0) pg/mL Total Protein 8.1 (6.4-8.2) g/dL Albumin 3.5 (3.4-5.0) g/dL Globulin 4.6 g/dL Albumin/Globulin Ratio 0.8 Imaging Data Venous US: Radiologist's impression: ITS Impressions Ankle X-Ray 03/05/25 17:37 IMPRESSION: No acute bony injury. Diffuse soft tissue swelling is noted. There is evidence of interval hardware fixation of the distal tibial fracture. No hardware complications. There is a healing fracture of the distal fibula. There is a similar linear radiodense foreign body in the soft tissues along the second and third metatarsals. Impression dictated by: Francis Irving M.D. 03/05/2025 6:33 PM [facility]ictation [facility] Electron[facility] authenticated by: [id number] Y Date: 03/05/2025 18:33 Discharge Plan Discharge Chief Complaint: Extremity Injury, Lower Clinical Impression: Leg pain, right, Cellulitis of right leg, DVT (deep venous thrombosis) Patient Disposition: Admitted as Observation Time of Disposition Decision: 20:42 Condition: Good
[2025-03-05 20:53] LABS: INR 1.22; Partial Thromboplastin Time 35.3 sec (22.3-36.2); Prothrombin Time 12.7 sec (9.0-11.6)
[2025-03-05 20:55] LABS: Lactate/Lactic Acid 1.2 mmol/L (0.4-2.0)
[2025-03-05 21:02] LABS: Alanine Aminotransferase 21 U/L (16-63); Albumin Globulin Ratio 0.8; Albumin Level 3.5 g/dL (3.4-5.0); Alkaline Phosphatase 244 U/L (46-116); Anion Gap 10.7; Aspartate Amino Transferase 19 U/L (15-37); BUN Creatinine Ratio 14.8; Bilirubin Total 0.6 mg/dL (0.2-1.0); Carbon Dioxide 32.4 mmol/L (21.0-32.0); Chloride 101 mmol/L (98-107); Estimated GFR (African America >60 (>=60 mL/min/1.73m^2); Estimated GFR (Non-African Ame >60 (>=60 mL/min/1.73m^2); Globulin 4.6 g/dL; Glucose 101 mg/dL (74-106); Potassium 4.1 mmol/L (3.5-5.1); Sodium 140 mmol/L (136-145); Total Protein 8.1 g/dL (6.4-8.2); Troponin I High Sensitivity 7.3 pg/mL (4.0-76.1)
--- NOTE | 2025-03-05 21:41 | PC.NURSE ---
Advertising Executive checked on bed situation and was told it will be awhile. Pt informed of continued wait.
[2025-03-05] MEDS: CARVEDILOL 25 MG TABLET PO (21:57)
[2025-03-05] MEDS: ATORVASTATIN CALCIUM 10 MG TABLET PO (21:58)
[2025-03-05] MEDS: GABAPENTIN 400 MG CAPSULE 1200 MG PO (21:58)
[2025-03-05] MEDS: HYDROXYZINE PAMOATE 25 MG CAPSULE PO (21:58)
[2025-03-05] MEDS: POTASSIUM CHLORIDE 10 MEQ ER TABLET PO (21:58)
--- NOTE | 2025-03-05 22:28 | PC.NURSE ---
Pt aware of continued wait. Snacks and drink given.
--- NOTE | 2025-03-05 23:07 | PC.NURSE ---
Report given. Charge Master Coordinator to take pt up to floor.
--- OUTSIDE RECORDS SUMMARY | 2025-03-05 23:22 | XMS_ITS | CCD ---
Author Organization [facility] Care Team Providers Care Child Care Education Coordinator Name Role Phone UNKNOWN, PROVIDER Admitting Unavailable UNKNOWN, PROVIDER Attending Unavailable VENUS JAEGER Referring Unavailable VENUS JAEGER Primary Care Unavailable ND Procedure Practitioner Unavailab le UNKNOWN, PROVIDER Surgeon Unavailable ND Procedure Practitioner Unavailab le SANDRA BILL Surgeon Unavailable UNKNOWN, PROVIDER Admitting Unavailable UNKNOWN, PROVIDER Attending Unavailable VENUS JAEGER Referring Unavailable VENUS JAEGER Primary Care Unavailable ND Procedure Practitioner Unavailab le UNKNOWN, PROVIDER Surgeon Unavailable Venus Jaeger Primary Care Physician MIL ., DR DONOVAN [...] Unavailable MAYRA BERNAL Consulting Unavailable Giedraitis , Andisai Berkowitz Attending Unavailable Giedraitis , Andrius Berkowitz Attending Unavailable Giedraitis , Andrius Woo Attending Unavailable Giedraitis , Andrius Juanytmiguelina Attending Unavailable Giedraitis , Andrius Woo Attending Unavailable CHINO Vallejo Attending Provider [phone] Venus Jaeger MD Primary Care Provider [phone] Yoni MAGANA, Trey Smith Attending Provider Trey Vallejo Admitting Unavailable Trey Vallejo Attending Unavailable Trey Vallejo Attending Unavailable Trey Vallejo Admitting Unavailable SUAREZMARIANNA Referring Unavailable SUYAPA, SHIN Referring Unavailable SUYAPA, SHIN Referring Unavailable SELMA, SANDRINE Referring Unavailable MAI, LEONIE Referring Unavailable SUYAPA, SHIN Referring Unavailable SUYAPA, SHIN Referring Unavailable HINDERS, MARILOU Referring Unavailable AMEGEE, TONIO Referring Unavailable AMEGEE, TONIO Referring Unavailable SELMA, SANDRINE Referring Unavailable AMEGEE, TONIO Referring Unavailable SELMA, SANDRINE Referring Unavailable SUYAPA, SHIN Referring Unavailable KATKO, SERA Referring Unavailable HERNANDEZ, LICO Admitting Unavailable HERNANDEZ, LICO Attending Unavailable HAY, ARMANDO Referring Unavailable SHAUN, FABIOLA Admitting Unavailable CARENAROLDO Attending Unavailable SUYAPA, SHIN Referring Unavailable RUBÉN GEIGER Attending Unavailable RUBÉN GEIGER Attending Unavailable APLINGVALENCIA Attending Unavailable APLINGVALENCIA Referring Unavailable RUBÉN GEIGER Attending Unavailable RUBÉN GEIGER Attending Unavailable Allergies Allergy Classification Reported Allergen(s) Allergy Type Date of Onset Reaction(s) Facility (1 source) Aspartame Drug Allergy 08-17-20 [facility] (1 source) avoid; Translations: [Unknown] Propensity to adverse reactions (disorder) 08-17-20 18 [facility] (1 source) vitamin B12; Translations: [cyanocobalamin] Drug Allergy Unknown (qualifier value) [facility] (1 source) Acetaminophen / HYDROcodone Drug Allergy [facility] (1 source) Corticosteroids Drug allergy (disorder) [facility] (1 source) fentaNYL Drug Allergy [facility] (1 source) Misc-Food; Translations: [Misc-Food] Food allergy (disorder) [facility] (13 sources) fentaNYL Drug Allergy 07-08-20 Unknown [facility] (13 sources) HYDROcodone Drug Allergy 07-08-20 Unknown [facility] (13 sources) Morphine And Codeine Drug Allergy 07-08-20 Unknown [facility] (13 sources) Other Propensity to adverse reactions 07-08-20 [facility] (1 source) Corticosteroids Drug allergy (disorder) 05-14-20 [facility] Repository Medications Current Medications Medication Drug Class(es) Dates Sig (Normalized) Sig (Original) acetaminophen 325 mg / HYDROcodone bitartrate 5 mg oral tablet (13 sources) Opioid Agonist Start: 03-20-2024 HYDROcodone-acet aminophen ([place]) 5-325 MG tablet 03/20/2024 Active amantadine hydrochloride 100 mg oral tablet (13 sources) Influenza A M2 Protein Inhibitor Start: 04-10-2024 End: 04-10-2025 take 1 tablet by mouth in the morning amantadine (Symmetrel) 100 MG tablet Indications: Excessive daytime sleepiness , Primary insomnia Take 1 tablet (100 mg) by mouth in the morning and at noon 180 tablet 3 04/10/2024 04/10/2025 Active aspirin 81 mg delayed release oral tablet (15 sources) Platelet Aggregation Inhibitor, Nonsteroidal Anti-inflammatory Drug Start: 05-14-2018 take 1 tablet by mouth once daily Aspirin 81 mg Tablet,Delayed Release (Dr/Ec) Active 81 MG PO Daily May 13, 2018 11:00pm ASPIRIN 81 MG ch ewable tablet Chew 81 mg in the morning. Active B-D 3CC LUER-SAYRA SYR 23GX1 23G X 1 3 ML misc (13 sources) Start: 05-18-2023 B-D 3CC LUER-L OK SYR 23GX1 23G X 1 3 ML misc USE 1 SYRINGE INTRAMUSCULARLY ONCE A WEEK 05/18/2023 Active Biotin (16 sources) Start: 02-26-2022 BIOTIN BIOTIN Start Date: 02/26/22 Status: Ordered Start: 05-14-2018 take 1 tablet by mouth once da rodney Biotin 10 mg Tablet Active 10 MG PO Daily May 13, 2018 11:00pm carvedilol 25 mg oral tablet (16 sources) alpha-Adrenergic Jorge L, beta-Adrenergic Jorge L Start: 02-26-2022 carvedilol 25 mg Tab Refills(s) 0 Start Date: 02/26/22 Status: Ordered Start: 05-14-2018 [facility] Carvedilol 12.5 mg Tablet Active 12.5 MG PO Twice daily May 13, 2018 11:00pm celecoxib 100 mg oral capsule (13 sources) Nonsteroidal Anti-inflammatory Drug CeleBREX 100 MG capsule 1 (one) time each day at the same time Active cholecalciferol 0.125 mg oral capsule (13 sources) Vitamin D Start: 2023 cholecalciferol (Vitamin D-3) 125 MCG (5000 UT) capsule 03/15/2024 Active citalopram 20 mg oral tablet (13 sources) Serotonin Reuptake Inhibitor Start: 2022 CeleXA 20 MG tablet 1 (one) time each day at the same time. 06/02/2023 Active clonazePAM 1 mg oral tablet (17 sources) Benzodiazepine Start: 2023 End: 2024 take 1 tablet by mouth at bedtime clonazePAM (KlonoPIN) 1 MG tablet Indications: Primary insomnia Take 1 tablet (1 mg) by mouth at bedtime 30 tablet 2 07/04/2024 Active Start: 02-26-2022 ClonazePAM 0.5 mg Tab Refills(s) 0 Start Date: 02/26/22 Status: Ordered Start: 05-14-2018 take 2 tablets by mo [facility] at bedtime Clonazepam 0.5 mg [...] 2018 11:00pm doxazosin 8 mg oral tablet (14 sources) alpha-Adrenergic Jorge L Start: 02-26-2022 doxazosin 8 mg oral tablet Refills(s) 0 Start Date: 02/26/22 Status: Ordered doxepin hydrochloride 10 mg oral capsule (15 sources) Tricyclic Antidepressant Start: 02-26-2022 doxepin 10 mg Cap Refills(s) 0 Start Date: 02/26/22 Status: Ordered DULoxetine 60 mg delayed release oral capsule (13 sources) Serotonin and Norepinephrine Reuptake Inhibitor take 1 capsule by mouth in the morning DULoxetine (Cymbalta) [address] capsule Take 60 mg by mouth in the morning and 60 mg in the evening. Active escitalopram 20 mg oral tablet (13 sources) Serotonin Reuptake Inhibitor take 1 tablet by mouth in the morning escitalopram (Lexapro) 20 MG tablet Take 20 mg by mouth in the morning. Active furosemide 20 mg oral tablet (13 sources) Loop Diuretic take 1 tablet by mouth in the morning furosemide (Lasix) 20 MG tablet Take 20 mg by mouth in the morning. Active gabapentin 600 mg oral tablet (16 sources) Anti-epileptic Agent Start: 05-14-2018 take 1 tablet by mouth three times daily Gabapentin 600 mg Tablet Active 600 MG PO Three times daily May 13, 2018 11:00pm glycopyrrolate 1 mg oral tablet (14 sources) Start: 01-22-2023 take 1 tablet by mouth in the morning glycopyrrolate (Robinul) 1 MG tablet Take 1 mg by mouth in the morning and 1 mg before bedtime. 01/22/2023 Active Start: 02-26-2022 glycopyrrolate 1 mg oral tablet Refills(s) 0 Start Date: 02/26/22 Status: Ordered hydrOXYzine pamoate 25 mg oral capsule (13 sources) Antihistamine Start: 05-11-2024 take 1 capsule [...] 11:00pm meclizine hydrochloride 25 mg chewable tablet (13 sources) Antiemetic Meclizine HCl 25 MG chewable tablet Chew 25 mg 1 (one) time each day at the same time. Active melatonin 10 mg oral capsule (15 sources) Start: 07-14-2023 End: 07-04-2025 take 1 capsule by mouth at bedtime Melatonin 10 MG capsule Indications: Primary insomnia Take 10 mg by mouth at bedtime 90 capsule 3 07/04/2024 07/04/2025 Active Multiple Vitamins-Minerals (Multi For Him 50+) tablet (13 sources) Multiple Vitamins-Minerals (Multi For Him 50+) tablet as directed Orally Active omeprazole 40 mg delayed release oral capsule (2 sources) Proton Pump Inhibitor Start: 05-14-2018 take 1 capsule by mouth twice daily Omeprazole 40 mg Capsule,Delayed Release(Dr/Ec) Active 40 MG PO Twice daily May 13, 2018 11:00pm ondansetron 4 mg oral tablet (20 sources) Serotonin-3 Receptor Antagonist Start: 11-14-2024 End: 12-14-2024 take 2 tablets by mouth every eight hours for nausea ondansetron (Zofran) 4 MG tablet Indications: Projectile vomiting with nausea Take 2 tablets (8 mg) by mouth every 8 (eight) hours if needed for nausea or vomiting 30 tablet 3 11/14/2024 12/14/2024 Active Start: 03-15-2024 ondansetron OD T (Zofran-ODT) 4 MG disintegrating tablet 03/15/2024 Active Start: 05-14-2018 Ondansetron 4 mg Tablet,Disintegrating Active 4 MG PO every 6 to 8 hours as needed for Nausea And Vomiting May 13, 2018 11:00pm ondansetron (Zof ran) 4 MG tablet Take 4 mg by mouth if needed. Active OXcarbazepine 300 mg oral tablet (13 sources) Anti-epileptic Agent take 1 tablet by mouth at bedtime OXcarbazepine (Trileptal) 300 MG tablet Take 300 mg by mouth at bedtime. Active pantoprazole 40 mg delayed release oral tablet (14 sources) Proton Pump Inhibitor Start: Pantoprazole [address] Tab Refills(s) 0 Start Date: 02/26/22 Status: Ordered potassium chloride 10 meq extended release oral tablet (13 sources) Start: take 1 tablet by mouth at mealtime potassium chloride CR (Klor-Con) 10 MEQ ER tablet Take 10 mEq by mouth in the morning. Take with food. . 02/22/2023 Active sennosides, longterm 8.6 mg oral tablet (13 sources) Start: senna (Senokot) 8.6 MG tablet 03/15/2024 Active simvastatin 20 mg oral tablet (16 sources) HMG-CoA Reductase Inhibitor Start: take 1 tablet by mouth once daily Simvastatin 20 mg Tablet Active 20 MG PO Daily May 13, 2018 11:00pm SUMAtriptan 100 mg oral tablet (15 sources) Serotonin-1b and Serotonin-1d Receptor Agonist Start: Sumatriptan Succinate 100 mg Tablet Active 100 MG PO EVERY 2-4 HOURS as needed for Migraine Headache May 13, 2018 11:00pm take 1 tablet by mouth once ALAINA triptan (Imitrex) 100 MG tablet Take 100 mg by mouth 1 (one) time if needed. Active 1 ml testosterone cypionate 200 mg/ml injection (13 sources) Androgen testosterone cyp ionate (Depo-Testosterone) 200 MG/ML injection Inject 200 mg into the shoulder, thigh, or buttocks every 14 (fourteen) days. Active thiamine 100 mg oral tablet (9 sources) Start: End: take 1 tablet by mouth once daily thiamine (Vitamin B-1) 100 MG tablet Indications: Excessive daytime sleepiness Take 1 tablet (100 mg) by mouth Daily 30 tablet 11 07/05/2024 07/05/2025 Active tiZANidine 4 mg oral capsule (15 sources) Central alpha-2 Adrenergic Agonist Start: take 1 capsule by mouth at bedtime Tizanidine 4 mg Capsule Active 4 MG PO Bedtime May 13, 2018 11:00pm take 1 tablet by mouth at bedtim e tiZANidine (Zanaflex) 4 MG tablet Take 4 mg by mouth at bedtime. Active Vit D3-Folic Jypy-H0-U4-B12 (1 source) Start: 05-14-2018 take 1 tablet by mouth once daily Vit D3-Folic Dltg-U1-U2-B12 Active 1 TAB PO Daily May 14, 2018 12:00am Vit D3-Folic Lvuz-Y5-I8-B12 2,000-800-0.32 unit-mcg-mg Tablet (1 source) Start: 05-14-2018 take 1 tablet by mouth once daily Vit D3-Folic Vmup-A5-R3-B12 2,000-800-0.32 unit-mcg-mg Tablet Active 1 TAB PO Daily May 13, 2018 11:00pm Completed/Discontinued Medications Medication Drug Class(es) Dates Sig (Normalized) Sig (Original) modafinil 200 mg oral tablet (19 sources) Sympathomimetic-l estevan Agent Start: 04-10-2024 End: 04-03-2025 take 1 tablet by mouth in the morning modafinil (Provigil) 200 MG tablet Indications: Excessive daytime sleepiness , Obstructive sleep apnea Take 1 tablet (200 mg) by mouth in the morning and at noon 180 tablet 10/02/2024 01/03/2025 Discontinued (Reorder) Start: 02-26-2022 modafinil 200 mg Tab Refills(s) 0 Start Date: 02/26/22 Status: Ordered Problems Active Problems Problem Classification Problem Date Documented Date Episodic/Chronic Anxiety disorders (14 sources) Anxiety disorder, unspecified; Translations: [Anxiety disorder] Onset: 6 06-21-2023 Chronic Blindness and vision defects (1 source) Unspecified visual loss; Translations: [UNSPECIFIED VISUAL LOSS] Onset: 2 Chronic Congestive heart failure; nonhypertensive (12 sources) Chronic combined systolic and diastolic heart failure; Translations: [Chronic combined systolic (congestive) and diastolic (congestive) heart failure] Onset: 3 10-15-2024 Chronic Delirium, dementia, and amnestic and other cognitive disorders (13 sources) 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; Translations: [Unspecified mental disorder due to known physiological condition] Onset: 1 06-21-2023 Chronic Diabetes mellitus without complication (20 sources) Type 2 diabetes mellitus without complications; Translations: [Diabetes mellitus without complication] Onset: 8 06-24-2023 Chronic Disorders of lipid metabolism (1 source) Pure hypercholesterolemia, unspecified; Translations: [PURE HYPERCHOLESTEROLEMIA UNSPEC] Onset: 3 Chronic E Codes: Place of occurrence (2 sources) Unspecified place in unspecified non-institutional (private) residence as the place of occurrence of the external cause; Translations: [Unspecified place in unspecified non-institutional (private) residence as the place of occurrence of the external cause] Onset: 5 Episodic Esophageal disorders (1 source) Gastro-esophageal reflux disease without esophagitis; Translations: [GERD WITHOUT ESOPHAGITIS] Onset: 3 Chronic Essential hypertension (14 sources) Essential (primary) hypertension; Translations: [Hypertensive disorder] Onset: 9 06-21-2023 Chronic Headache; including migraine (13 sources) Migraine; Translations: [Migraine, unspecified, not intractable, without status migrainosus] Onset: 7 06-21-2023 Chronic Hyperplasia of prostate (1 source) Benign prostatic hypertrophy without outflow obstruction; Translations: [Benign prostatic hyperplasia without lower urinary tract symptoms] Onset: 2 Chronic Hypertension with complications and secondary hypertension (6 sources) Hypertensive heart failure; Translations: [Hypertensive heart disease with heart failure] Onset: 3 10-15-2024 Chronic Miscellaneous mental health disorders (16 sources) Primary insomnia; Translations: [Primary insomnia] Onset: 3 03-11-2023 Chronic Mood disorders (1 source) Major depressive disorder, single episode, unspecified; Translations: [MARITZA DEPRESS D/O SINGLE EPIS UNS] Onset: 2 Chronic Mood disorders (1 source) Mood disorders; Translations: [DEPRESSION UNSPECIFIED] Onset: 3 Nausea and vomiting (1 source) Projectile vomiting; Translations: [Projectile vomiting] 11-14-2024 Episodic Open wounds of extremities (10 sources) Puncture wound without foreign body, left foot, initial encounter; Translations: [Open wound of left great toe] Onset: 2 Episodic Osteoarthritis (14 sources) Unspecified osteoarthritis, unspecified site; Translations: [Arthritis of right acromioclavicular joint] Onset: 8 06-21-2023 Chronic Other aftercare (1 source) 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; Translations: [FPC 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 ASPIRIN] Onset: 3 Episodic Other aftercare (1 source) Other terminal computer operator (current) drug therapy; Translations: [OTH FPC CURRENT [...] Onset: 3 Episodic Other male genital disorders (13 sources) Secondary erectile dysfunction; Translations: [Male erectile [...] Onset: 2 Chronic Other nervous system disorders (13 sources) Carpal tunnel syndrome of right wrist; Translations: [Carpal tunnel syndrome, right upper limb] Onset: 8 06-21-2023 Chronic Other nervous system disorders (17 sources) Lesion of ulnar nerve, right upper limb; Translations: [Lesion of ulnar nerve] Onset: 3 06-21-2023 Chronic Other nervous system disorders (13 sources) Chronic pain; Translations: [Other chronic pain] Onset: 8 06-21-2023 Chronic Other nervous system disorders (13 sources) Ulnar nerve entrapment; Translations: [Lesion of ulnar nerve, unspecified upper limb] Onset: 3 06-21-2023 Chronic Other nervous system disorders (11 sources) Cataplexy and narcolepsy; Translations: [Narcolepsy with cataplexy] Onset: 5 10-04-2024 Chronic Other nutritional; endocrine; and metabolic disorders (6 sources) Obesity; Translations: [Obesity, unspecified] Onset: 5 10-15-2024 Chronic Mary Lou-; endo-; and myocarditis; cardiomyopathy (except that caused by tuberculosis or sexually transmitted disease) (6 sources) Cardiomyopathy; Translations: [Other cardiomyopathies] Onset: 3 10-15-2024 Chronic Residual codes; unclassified (1 source) Sleep apnea, unspecified; Translations: [SLEEP APNEA UNSPECIFIED] Onset: 3 Chronic Residual codes; unclassified (19 sources) Daytime somnolence; Translations: [Other hypersomnia] Onset: 3 03-11-2023 Chronic Residual codes; unclassified (18 sources) Obstructive sleep apnea syndrome; Translations: [Obstructive sleep apnea (adult) (pediatric)] Onset: 3 06-21-2023 Chronic Residual codes; unclassified (2 sources) Obstructive sleep apnea (adult) (pediatric); Translations: [Obstructive sleep apnea (adult) (pediatric)] Onset: 5 Chronic Skin and subcutaneous tissue infections (20 sources) Cellulitis; Translations: [Cellulitis, unspecified] Onset: 3 [...] Date Episodic/Chronic Coma; stupor; and brain damage (13 sources) Clouded consciousness; Translations: [Stupor] Onset: 03-03-2012 06-21-2023 Episodic E Codes: Fall (9 sources) Unspecified fall, initial encounter; Translations: [Fall in home] Onset: 12-07-2022 Episodic E Codes: Natural/environment (1 source) Exposure to other specified factors, initial encounter; Translations: [EXPOSURE OTHER SPEC FACTORS INITIAL] Onset: 04-27-2022 Episodic Fracture of lower limb (10 sources) Unspecified fracture of shaft of right tibia, initial encounter for closed fracture; Translations: [Unspecified fracture of shaft of right fibula, initial encounter for closed fracture] Onset: 09-23-2024 Episodic Gastritis and duodenitis (13 sources) Gastritis; Translations: [Gastritis, unspecified, without bleeding] Onset: 05-09-2013 06-21-2023 Episodic Heart valve disorders (13 sources) Systolic murmur; Translations: [Cardiac murmur, unspecified] Onset: 06-24-2023 06-24-2023 Episodic Immunizations and screening for infectious disease (1 source) Encounter for immunization; Translations: [ENCOUNTER FOR IMMUNIZATION] Onset: 04-27-2022 Episodic Inflammatory conditions of male genital organs (4 sources) Inflammatory disorders of scrotum; Translations: [INFLAMMATORY DISORDERS OF SCROTUM] Onset: 01-04-2022 Episodic Malaise and fatigue (13 sources) Fatigue; Translations: [Other fatigue] Onset: 03-03-2012 06-21-2023 Episodic Noninfectious gastroenteritis (13 sources) Gastroenteritis; Translations: [Noninfective gastroenteritis and colitis, unspecified] Onset: 04-10-2015 06-21-2023 Episodic Nonspecific chest pain (20 sources) Chest discomfort; Translations: [Other chest pain] Onset: 11-30-2011 06-21-2023 Episodic Other circulatory disease (13 sources) Capillary hemangioma; Translations: [Nevus, non-neoplastic] Onset: 05-28-2008 06-21-2023 Episodic Other connective tissue disease (15 sources) Spasm of cervical paraspinous muscle; Translations: [Other muscle spasm] Onset: 03-11-2023 03-11-2023 Episodic Other connective tissue disease (13 sources) Bursitis; Translations: [Bursopathy, unspecified] Onset: 02-27-2011 06-21-2023 Episodic Other connective tissue disease (13 sources) Foot pain; Translations: [Pain in unspecified foot] Onset: 10-07-2012 06-21-2023 Episodic Other connective tissue disease (13 sources) Muscle pain; Translations: [Myalgia, unspecified site] Onset: 12-02-2012 06-21-2023 Episodic Other connective tissue disease (13 sources) Impingement syndrome of shoulder region; Translations: [Impingement syndrome of unspecified shoulder] Onset: 01-25-2003 06-21-2023 Episodic Other connective tissue disease (13 sources) Lateral epicondylitis; Translations: [Lateral epicondylitis, unspecified elbow] Onset: 06-24-2023 06-24-2023 Episodic Other connective tissue disease (13 sources) Other symptoms and signs involving the musculoskeletal system; Translations: [Other musculoskeletal symptoms referable to limbs] Onset: 12-29-2023 12-29-2023 Episodic Other lower respiratory disease (13 sources) Dyspnea; Translations: [Dyspnea, unspecified] Onset: 11-30-2011 06-21-2023 Episodic Other nervous system disorders (15 sources) Numbness of upper limb; Translations: [Anesthesia of skin] Onset: 12-29-2023 08-25-2023 Episodic Comment on above: Problem List clean-u p per request of Phys. EHR Cmte Other non-traumatic joint disorders (13 sources) Ankle edema; Translations: [Effusion, unspecified ankle] Onset: 05-15-2014 06-21-2023 Episodic Other non-traumatic joint disorders (13 sources) Joint pain; Translations: [Pain in unspecified joint] Onset: 09-03-2009 06-21-2023 Episodic Other screening for suspected conditions (not mental disorders or infectious disease) (20 sources) Encounter for screening for malignant neoplasm of prostate; Translations: [Elevated prostate specific antigen [PSA]] Onset: 03-13-2022 Episodic Other skin disorders (13 sources) Excessive sweating; Translations: [Generalized hyperhidrosis] Onset: 12-18-2015 06-21-2023 Episodic Other skin disorders (13 sources) Senile hyperkeratosis; Translations: [Actinic keratosis] Onset: 03-28-2015 06-21-2023 Episodic Other skin disorders (13 sources) Hyperhidrosis; Translations: [Generalized hyperhidrosis] Onset: 06-24-2023 06-24-2023 Episodic Other upper respiratory infections (13 sources) Upper respiratory infection; Translations: [Acute upper respiratory infection, unspecified] Onset: 12-05-2010 06-21-2023 Episodic Spondylosis; intervertebral disc disorders; other back problems (20 sources) Cervical disc prolapse with radiculopathy; Translations: [Cervical disc disorder with radiculopathy, unspecified cervical region] Onset: 10-11-2018 08-25-2023 Episodic Comment on above: Problem List clean-u p per request of Phys. EHR Cmte Urinary tract infections (13 sources) Urinary tract infectious disease; Translations: [Urinary tract infection, site not specified] Onset: 06-28-2014 06-21-2023 Episodic Results Test Name Value Interpretation Reference Range Facility BASIC METABOLIC PANELon 09-14 Anion gap [Moles/Vol] 8 mmol/L Normal 7-20 [facility] Comment on above: Performed By: #### L [id number] #### [facility] ([facility]) [address] [place] [address] Calcium [Mass/Vol] 9.7 mg/dL Normal 8.6-10.3 [facility] Comment on above: Performed By: #### L [id number] #### [facility] ([facility]) [address] [place] [address] Chloride [Moles/Vol] 97 mmol/L Low 98-107 [facility] Comment on above: Performed By: #### L [id number] #### [facility] ([facility]) [address] [place] [address] CO2 [Moles/Vol] 35 mmol/L High 21-31 [facility] Comment on above: Performed By: #### L [id number] #### [facility] ([facility]) [address] [place] [address] Creatinine [Mass/Vol] 1.02 mg/dL Normal 0.70-1.30 [facility] Comment on above: Performed By: #### L [id number] #### [facility] ([facility]) [address] [place] [address] GLOMERULAR FILTRATION RATE ML/MIN/1.73 SQ M.PREDICTED 86.8 mL/min/1.73m*2 Normal >60.0 [facility] Comment on above: Result Comment: [facility]???s estimated glomerular filtration rate (eGFR) will no [...] individuals. Performed By: #### L [id number] #### [facility] ([facility]) [address] [place] [address] Glucose [Mass/Vol] 80 mg/dL Normal 70-100 [facility] Comment on above: Performed By: #### L [id number] #### [facility] ([facility]) [address] [place] [address] Potassium [Moles/Vol] 4.2 mmol/L Normal 3.5-5.1 [facility] Comment on above: Performed By: #### L [id number] #### [facility] ([facility]) [address] [place] [address] Sodium [Moles/Vol] 136 mmol/L Normal 136-145 [facility] Comment on above: Performed By: #### L [id number] #### [facility] ([facility]) [address] [place] [address] Urea nitrogen [Mass/Vol] 8 mg/dL Normal 7-25 [facility] Comment on above: Performed By: #### L [id number] #### [facility] ([facility]) [address] [place] [address] UREA NITROGEN/CREATININE (MASS RATIO) IN SER/PLAS 7.8 Normal [facility] Comment on above: Performed By: #### L [id number] #### [facility] ([facility]) [address] [place] [address] CBC WITH AUTO DIFFERENTIALon 10-11-2024 Basophils (Bld) [#/Vol] 0.06 10*3/uL Normal 0.00-0.20 [facility] Comment on above: Performed By: #### L [id number] ####[facility] ([facility])[address] [place] [address] Basophils/100 WBC (Bld) 0.9 % Normal 0.0-1.0 [facility] Comment on above: Performed By: #### L [id number] ####[facility] ([facility])[address] [place] [address] Eosinophils (Bld) [#/Vol] 0.21 10*3/uL Normal 0.00-0.50 [facility] Comment on above: Performed By: #### L [id number] ####[facility] ([facility])[address] [place] [address] Eosinophils/100 WBC (Bld) 3.0 % Normal 0.0-6.0 [facility] Comment on above: Performed By: #### L [id number] ####[facility] ([facility] [place] [address] Erythrocyte distribution width (RBC) [Ratio] 16.7 % High 11.5-15.0 [facility] Comment on above: Performed By: #### L [id number] ####[facility] ([facility])[address] [place] [address] ERYTHROCYTE MEAN CORPUSCULAR HEMOGLOBIN CONCENTRATION (G/DL) BY AUTOMATED 29.9 g/dL Low 32.0-35.0 [facility] Comment on above: Performed By: #### L [id number] ####[facility] ([facility] [place] [address] Hematocrit (Bld) [Volume fraction] 44.5 % Normal 39.0-55.0 [facility] Comment on above: Performed By: #### L [id number] ####[facility] ([facility])[address] [place] [address] Hemoglobin (Bld) [Mass/Vol] 13.3 g/dL Normal 13.0-17.0 [facility] Comment on above: Performed By: #### L [id number] ####[facility] ([facility])[address] [place] [address] Immature granulocytes (Bld) [#/Vol] 0.11 10*3/uL Normal 0.00-0.20 [facility] Comment on above: Performed By: #### L [id number] ####[facility] ([facility])[address] [place] [address] Immature granulocytes/100 WBC (Bld) 1.6 % High 0.0-1.0 [facility] Comment on above: Performed By: #### L [id number] ####[facility] ([facility])[address] [place] [address] Lymphocytes (Bld) [#/Vol] 0.91 10*3/uL Low 1.20-4.00 [facility] Comment on above: Performed By: #### L [id number] ####[facility] ([facility])[address] [place] [address] Lymphocytes/100 WBC (Bld) 12.9 % Low 20.0-45.0 [facility] Comment on above: Performed By: #### L [id number] ####[facility] ([facility])[address] [place] [address] MCH (RBC) [Entitic mass] 26.9 pg Low 27.0-33.0 [facility] Comment on above: Performed By: #### L [id number] ####[facility] ([facility] [place] [address] MCV (RBC) [Entitic vol] 89.9 fL Normal 82.0-98.0 [facility] Comment on above: Performed By: #### L [id number] ####[facility] ([facility])[address] [place] [address] Monocytes (Bld) [#/Vol] 0.65 10*3/uL Normal 0.10-1.00 [facility] Comment on above: Performed By: #### L [id number] ####[facility] ([facility])[address] [place] [address] Monocytes/100 WBC (Bld) 9.2 % Normal 5.0-12.0 [facility] Comment on above: Performed By: #### L [id number] ####[facility] ([facility])[address] [place] [address] Neutrophils (Bld) [#/Vol] 5.11 10*3/uL Normal 1.60-7.60 [facility] Comment on above: Performed By: #### L [id number] ####[facility] ([facility])[address] [place] [address] Neutrophils/100 WBC (Bld) 72.4 % High 40.0-72.0 [facility] Comment on above: Performed By: #### L [id number] ####[facility] ([facility])[address] [place] [address] NRBC (PER 100 WBCS) BY AUTOMATED COUNT 0.0 % Normal 0 [facility] Comment on above: Performed By: #### L [id number] ####[facility] ([facility])[address] [place] [address] PLATELETS (10*3/UL) IN BLOOD AUTOMATED COUNT 218 10*3/uL Normal 150-400 [facility] Comment on above: Performed By: #### L [id number] ####[facility] ([facility])[address] [place] [address] RBC (Bld) [#/Vol] 4.95 10*6/uL Normal 4.20-5.70 [facility] Comment on above: Performed By: #### L [id number] ####[facility] ([facility])[address] [place] [address] WBC (Bld) [#/Vol] 7.05 10*3/uL Normal 4.00-10.60 [facility] Comment on above: Performed By: #### L [id number] ####[facility] ([facility])[address] [place] [address] BASIC METABOLIC PANELon 09-14 Anion gap [Moles/Vol] 9 mmol/L Normal 7-20 [facility] Comment on above: Performed By: #### L [id number] #### [facility] ([facility]) [address] [place] [address] Calcium [Mass/Vol] 9.5 mg/dL Normal 8.6-10.3 [facility] Comment on above: Performed By: #### L [id number] #### [facility] ([facility]) [address] [place] [address] Chloride [Moles/Vol] 96 mmol/L Low 98-107 [facility] Comment on above: Performed By: #### L [id number] #### [facility] ([facility]) [address] [place] [address] CO2 [Moles/Vol] 34 mmol/L High 21-31 [facility] Comment on above: Performed By: #### L [id number] #### [facility] ([facility]) [address] [place] [address] Creatinine [Mass/Vol] 0.93 mg/dL Normal 0.70-1.30 [facility] Comment on above: Performed By: #### L [id number] #### [facility] ([facility]) [address] [place] [address] GLOMERULAR FILTRATION RATE ML/MIN/1.73 SQ M.PREDICTED 97.0 mL/min/1.73m*2 Normal >60.0 [facility] Comment on above: Result Comment: The [facility]???s estimated glomerular filtration rate (eGFR) will no [...] individuals. Performed By: #### L [id number] #### [facility] ([facility]) [address] [place] [address] Glucose [Mass/Vol] 85 mg/dL Normal 70-100 [facility] Comment on above: Performed By: #### L [id number] #### [facility] ([facility]) [address] [place] [address] Potassium [Moles/Vol] 4.0 mmol/L Normal 3.5-5.1 [facility] Comment on above: Performed By: #### L [id number] #### [facility] ([facility]) [address] [place] [address] Sodium [Moles/Vol] 135 mmol/L Low 136-145 [facility] Comment on above: Performed By: #### L [id number] #### [facility] ([facility]) [address] [place] [address] Urea nitrogen [Mass/Vol] 8 mg/dL Normal 7-25 [facility] Comment on above: Performed By: #### L [id number] #### [facility] ([facility]) [address] [place] [address] UREA NITROGEN/CREATININE (MASS RATIO) IN SER/PLAS 8.6 Normal [facility] Comment on above: Performed By: #### L [id number] #### [facility] ([facility]) [address] [place] [address] C-REACTIVE PROTEINon 025 C REACTIVE PROTEIN (MG/L) IN SER/PLAS 11.5 mg/L High <=5.0 [facility] Comment on above: Result Comment: Test ing performed using a new methodology, turbidimetry. Normal ranges have been updated. Old normal range was <8 mg/L. Performed By: #### L [id number] #### [facility] ([facility]) [address] [place] [address] CBC WITH AUTO DIFFERENTIALon 10-10-2024 Basophils (Bld) [#/Vol] 0.08 10*3/uL Normal 0.00-0.20 [facility] Comment on above: Performed By: #### L [id number] ####[facility] ([facility])[address] [place] [address] Basophils/100 WBC (Bld) 1.1 % High 0.0-1.0 [facility] Comment on above: Performed By: #### L [id number] ####[facility] ([facility])[address] [place] [address] Eosinophils (Bld) [#/Vol] 0.19 10*3/uL Normal 0.00-0.50 [facility] Comment on above: Performed By: #### L [id number] ####[facility] ([facility])[address] [facility] [address] Eosinophils/100 WBC (Bld) 2.7 % Normal 0.0-6.0 [facility] Comment on above: Performed By: #### L [id number] ####[facility] ([facility])[address] [place] [address] Erythrocyte distribution width (RBC) [Ratio] 16.6 % High 11.5-15.0 [facility] Comment on above: Performed By: #### L [id number] ####[facility] ([facility])[address] [place] [address] ERYTHROCYTE MEAN CORPUSCULAR HEMOGLOBIN CONCENTRATION (G/DL) BY AUTOMATED 30.1 g/dL Low 32.0-35.0 [facility] Comment on above: Performed By: #### L [id number] ####[facility] ([facility])[address] [place] [address] Hematocrit (Bld) [Volume fraction] 44.5 % Normal 39.0-55.0 [facility] Comment on above: Performed By: #### L [id number] ####[facility] ([facility])[address] [place] [address] Hemoglobin (Bld) [Mass/Vol] 13.4 g/dL Normal 13.0-17.0 [facility] Comment on above: Performed By: #### L [id number] ####[facility] ([facility])[address] [place] [address] Immature granulocytes (Bld) [#/Vol] 0.10 10*3/uL Normal 0.00-0.20 [facility] Comment on above: Performed By: #### L [id number] ####[facility] ([facility])[address] [place] [address] Immature granulocytes/100 WBC (Bld) 1.4 % High 0.0-1.0 [facility] Comment on above: Performed By: #### L [id number] ####[facility] ([facility])[address] [place] [address] Lymphocytes (Bld) [#/Vol] 0.90 10*3/uL Low 1.20-4.00 [facility] Comment on above: Performed By: #### L [id number] ####[facility] ([facility])[address] [place] [address] Lymphocytes/100 WBC (Bld) 12.8 % Low 20.0-45.0 [facility] Comment on above: Performed By: #### L [id number] ####[facility] ([facility])[address] [place] [address] MCH (RBC) [Entitic mass] 26.9 pg Low 27.0-33.0 [facility] Comment on above: Performed By: #### L [id number] ####[facility] ([facility])[address] [place] [address] MCV (RBC) [Entitic vol] 89.4 fL Normal 82.0-98.0 [facility] Comment on above: Performed By: #### L [id number] ####[facility] ([facility])[address] [place] [address] Monocytes (Bld) [#/Vol] 0.60 10*3/uL Normal 0.10-1.00 [facility] Comment on above: Performed By: #### L [id number] ####[facility] ([facility])[address] [place] [address] Monocytes/100 WBC (Bld) 8.5 % Normal 5.0-12.0 [facility] Comment on above: Performed By: #### L [id number] ####[facility] ([facility])[address] [place] [address] Neutrophils (Bld) [#/Vol] 5.17 10*3/uL Normal 1.60-7.60 [facility] Comment on above: Performed By: #### L [id number] ####[facility] ([facility])[address] [place] [address] Neutrophils/100 WBC (Bld) 73.5 % High 40.0-72.0 [facility] Comment on above: Performed By: #### L [id number] ####[facility] ([facility])[address] [place] [address] NRBC (PER 100 WBCS) BY AUTOMATED COUNT 0.0 % Normal 0 [facility] Comment on above: Performed By: #### L [id number] ####[facility] ([facility])[address] [place] [address] PLATELETS (10*3/UL) IN BLOOD AUTOMATED COUNT 243 10*3/uL Normal 150-400 [facility] Comment on above: Performed By: #### L [id number] ####[facility] ([facility])[address] [place] [address] RBC (Bld) [#/Vol] 4.98 10*6/uL Normal 4.20-5.70 [facility] Comment on above: Performed By: #### L [id number] ####[facility] ([facility])[address] [place] [address] WBC (Bld) [#/Vol] 7.04 10*3/uL Normal 4.00-10.60 [facility] Comment on above: Performed By: #### L [id number] ####[facility])[address] [address] SEDIMENTATION RATEon 025 SEDIMENTATION RATE, ERYTHROCYTE 54 mm/hr High <20 [facility] Comment on above: Performed By: #### L [id number] #### [facility] ([facility]) [address] [place] [address] VANCOMYCIN, PEAKon 5 VANCOMYCIN (UG/ML) IN SER/PLAS - PEAK 23.0 ug/mL Normal 20.0-50.0 [facility] Comment on above: Performed By: #### L [id number] #### [facility] ([facility]) [address] [place] [address] VANCOMYCIN, TROUGHon 025 VANCOMYCIN (UG/ML) IN SER/PLAS - TROUGH 19.2 ug/mL Normal 5.0-20.0 [facility] Comment on above: Performed By: #### L [id number] #### [facility] ([facility]) [address] [place] [address] 36on 10-09-2024 36 Spoke with facility and patient was admitted back here at [place] yesterday. They will call back if they need any orders. Normal [facility] BASIC METABOLIC PANELon 01-2 Anion gap [Moles/Vol] 9 mmol/L Normal - [facility] Comment on above: Performed By: #### L [id number] ####[facility] ([facility])[address] [place] [address] Calcium [Mass/Vol] 9.4 mg/dL Normal 8.6-10.3 [facility] Comment on above: Performed By: #### L [id number] ####[facility] ([facility])[address] [place] [address] Chloride [Moles/Vol] 96 mmol/L Low 98-107 [facility] Comment on above: Performed By: #### L [id number] ####[facility] ([facility])[address] [place] [address] CO2 [Moles/Vol] 36 mmol/L High - [facility] Comment on above: Performed By: #### L [id number] ####[facility] ([facility])[address] [place] [address] Creatinine [Mass/Vol] 0.98 mg/dL Normal 0.70-1.30 [facility] Comment on above: Performed By: #### L [id number] ####[facility] ([facility])[address] [place] [address] GLOMERULAR FILTRATION RATE ML/MIN/1.73 SQ M.PREDICTED 91.1 mL/min/1.73m*2 Normal >60.0 [facility] Comment on above: Result Comment: [facility]???s estimated glomerular filtration rate (eGFR) will no [...] of individuals. Performed By: #### L [id number] ####[facility] ([facility])[address] [place] [address] Glucose [Mass/Vol] 90 mg/dL Normal 70-100 [facility] Comment on above: Performed By: #### L [id number] ####[facility] ([facility])[address] [place] [address] Potassium [Moles/Vol] 4.0 mmol/L Normal 3.5-5.1 [facility] Comment on above: Performed By: #### L [id number] ####[facility] ([facility])[address] [place] [address] Sodium [Moles/Vol] 137 mmol/L Normal 136-145 [facility] Comment on above: Performed By: #### L [id number] ####[facility])[address] [place] [address] Urea nitrogen [Mass/Vol] 7 mg/dL Normal 7-25 [facility] Comment on above: Performed By: #### L [id number] ####[facility])[address] [facility] [address] UREA NITROGEN/CREATININE (MASS RATIO) IN SER/PLAS 7.1 Normal [facility] Comment on above: Performed By: #### L [id number] ####[facility] ([facility])[address] [place] [address] CBCon 10-09-2024 Erythrocyte distribution width (RBC) [Ratio] 16.2 % High 11.5-15.0 [facility] Comment on above: Performed By: #### L [id number] #### [facility] ([facility]) [address] [place] [address] ERYTHROCYTE MEAN CORPUSCULAR HEMOGLOBIN CONCENTRATION (G/DL) BY AUTOMATED 30.5 g/dL Low 32.0-35.0 [facility] Comment on above: Performed By: #### L [id number] #### [facility] ([facility]) [address] [place] [address] Hematocrit (Bld) [Volume fraction] 42.0 % Normal 39.0-55.0 [facility] Comment on above: Performed By: #### L [id number] #### [facility] ([facility]) [address] [place] [address] Hemoglobin (Bld) [Mass/Vol] 12.8 g/dL Low 13.0-17.0 [facility] Comment on above: Performed By: #### L [id number] #### [facility] ([facility]) [address] [place] [address] MCH (RBC) [Entitic mass] 26.9 pg Low 27.0-33.0 [facility] Comment on above: Performed By: #### L [id number] #### [facility]) [address] [place] [address] MCV (RBC) [Entitic vol] 88.2 fL Normal 82.0-98.0 [facility] Comment on above: Performed By: #### L [id number] #### [facility]) [address] [place] [address] PLATELETS (10*3/UL) IN BLOOD AUTOMATED COUNT 240 10*3/uL Normal 150-400 [facility] Comment on above: Performed By: #### L [id number] #### [facility]) [address] [place] [address] RBC (Bld) [#/Vol] 4.76 10*6/uL Normal 4.20-5.70 [facility] Comment on above: Performed By: #### L [id number] #### [facility]) [address] [place] [address] WBC (Bld) [#/Vol] 8.22 10*3/uL Normal 4.00-10.60 [facility] Comment on above: Performed By: #### L [id number] #### [facility]) [address] [place] [address] MAGNESIUMon 10-09-2024 Magnesium [Mass/Vol] 2.0 mg/dL Normal 1.9-2.7 [facility] Comment on above: Performed By: #### L [id number] #### [facility]) [address] [place] [address] BLOOD CULTUREon 10-08-2024 Bacteria identified Cx Nom (Bld) No growth at 5 days Normal [facility] Comment on above: Performed By: #### L [id number] ####[facility] ([facility])[place] [address] Order Comment: From a different site than #1. Performed By: #### L [id number] #### [facility]) [facility] [place] [address] C-REACTIVE PROTEINon 025 C REACTIVE PROTEIN (MG/L) IN SER/PLAS 26.6 mg/L High <=5.0 [facility] Comment on above: Result Comment: Test ing performed using a new methodology, turbidimetry. Normal ranges have been updated. Old normal range was <8 mg/L. Performed By: #### L [id number] ####[facility])[address] [place] [address] CBC WITH AUTO DIFFERENTIALon 10-08-2024 Basophils (Bld) [#/Vol] 0.06 10*3/uL Normal 0.00-0.20 [facility] Comment on above: Performed By: #### L [id number] #### [facility]) [address] [place] [address] Basophils/100 WBC (Bld) 0.8 % Normal 0.0-1.0 [facility] Comment on above: Performed By: #### L [id number] #### [facility]) [address] [facility] [place] [address] Eosinophils (Bld) [#/Vol] 0.17 10*3/uL Normal 0.00-0.50 [facility] Comment on above: Performed By: #### L [id number] #### [facility] ([facility]) [address] [place] [address] Eosinophils/100 WBC (Bld) 2.3 % Normal 0.0-6.0 [facility] Comment on above: Performed By: #### L [id number] #### [facility]) [address] [place] [address] Erythrocyte distribution width (RBC) [Ratio] 16.0 % High 11.5-15.0 [facility] Comment on above: Performed By: #### L [id number] #### [facility]) [address] [place] [address] ERYTHROCYTE MEAN CORPUSCULAR HEMOGLOBIN CONCENTRATION (G/DL) BY AUTOMATED 30.3 g/dL Low 32.0-35.0 [facility] Comment on above: Performed By: #### L [id number] #### [facility]) [address] [place] [address] Hematocrit (Bld) [Volume fraction] 40.9 % Normal 39.0-55.0 [facility] Comment on above: Performed By: #### L [id number] #### [facility]) [address] [place] [address] Hemoglobin (Bld) [Mass/Vol] 12.4 g/dL Low 13.0-17.0 [facility] Comment on above: Performed By: #### L [id number] #### [facility]) [address] [place] [address] Immature granulocytes (Bld) [#/Vol] 0.10 10*3/uL Normal 0.00-0.20 [facility] Comment on above: Performed By: #### L [id number] #### [facility]) [address] [place] [address] Immature granulocytes/100 WBC (Bld) 1.4 % High 0.0-1.0 [facility] Comment on above: Performed By: #### L [id number] #### [facility] [address] [place] [address] Lymphocytes (Bld) [#/Vol] 0.73 10*3/uL Low 1.20-4.00 [facility] Comment on above: Performed By: #### [id number] #### [facility] ([facility]) [address] [place] [address] Lymphocytes/100 WBC (Bld) 10.0 % Low 20.0-45.0 [facility] Comment on above: Performed By: #### [id number] #### [facility] ([facility]) [address] [place] [address] MCH (RBC) [Entitic mass] 26.7 pg Low 27.0-33.0 [facility] Comment on above: Performed By: #### L [id number] #### [facility] ([facility]) [address] [place] [address] MCV (RBC) [Entitic vol] 88.0 fL Normal 82.0-98.0 [facility] Comment on above: Performed By: #### [id number] #### [facility] ([facility]) [address] [place] [address] Monocytes (Bld) [#/Vol] 0.52 10*3/uL Normal 0.10-1.00 [facility] Comment on above: Performed By: #### L [id number] #### [facility] ([facility]) [address] [place] [address] Monocytes/100 WBC (Bld) 7.1 % Normal 5.0-12.0 [facility] Comment on above: Performed By: #### L [id number] #### [facility] ([facility]) [address] [place] [address] Neutrophils (Bld) [#/Vol] 5.73 10*3/uL Normal 1.60-7.60 [facility] Comment on above: Performed By: #### L [id number] #### [facility] ([facility]) [address] [place] [address] Neutrophils/100 WBC (Bld) 78.4 % High 40.0-72.0 [facility] Comment on above: Performed By: #### L [id number] #### [facility] ([facility]) [address] [place] [address] NRBC (PER 100 WBCS) BY AUTOMATED COUNT 0.0 % Normal 0 [facility] Comment on above: Performed By: #### L [id number] #### [facility] ([facility]) [address] [place] [address] PLATELETS (10*3/UL) IN BLOOD AUTOMATED COUNT 231 10*3/uL Normal 150-400 [facility] Comment on above: Performed By: #### L [id number] #### [facility] ([facility]) [address] [place] [address] RBC (Bld) [#/Vol] 4.65 10*6/uL Normal 4.20-5.70 [facility] Comment on above: Performed By: #### L [id number] #### [facility] ([facility]) [address] [place] [address] WBC (Bld) [#/Vol] 7.31 10*3/uL Normal 4.00-10.60 [facility] Comment on above: Performed By: #### L [id number] #### [facility] ([facility]) [address] [place] [address] COMPREHENSIVE METABOLIC PANE Clif 10-08-2024 Albumin [Mass/Vol] 3.7 g/dL Normal 3.5-5.7 [facility] Comment on above: Performed By: #### L [id number] #### [facility] ([facility]) [address] [place] [address] ALP [Catalytic activity/Vol] 130 U/L High 34-104 [facility] Comment on above: Performed By: #### L [id number] #### [facility] ([facility]) [address] [place] [address] ALT [Catalytic activity/Vol] 14 U/L Normal 7-52 [facility] Comment on above: Performed By: #### L [id number] #### [facility] ([facility]) [address] [place] [address] Anion gap [Moles/Vol] 9 mmol/L Normal 7-20 [facility] Comment on above: Performed By: #### L [id number] #### [facility] ([facility]) [address] [place] [address] AST [Catalytic activity/Vol] 19 U/L Normal 13-39 [facility] Comment on above: Performed By: #### L [id number] #### [facility] ([facility]) [address] [place] [address] Bilirubin [Mass/Vol] 0.7 mg/dL Normal 0.3-1.0 [facility] Comment on above: Performed By: #### L [id number] #### [facility] ([facility]) [address] [place] [address] Calcium [Mass/Vol] 9.5 mg/dL Normal 8.6-10.3 [facility] Comment on above: Performed By: #### L [id number] #### [facility] ([facility]) [address] [place] [address] Chloride [Moles/Vol] 99 mmol/L Normal 98-107 [facility] Comment on above: Performed By: #### L [id number] #### [facility] ([facility]) [address] [place] [address] CO2 [Moles/Vol] 37 mmol/L High 21-31 [facility] Comment on above: Performed By: #### L [id number] #### [facility] ([facility]) [address] [place] [address] Creatinine [Mass/Vol] 0.96 mg/dL Normal 0.70-1.30 [facility] Comment on above: Performed By: #### L [id number] #### [facility] ([facility]) [address] [place] [address] GLOMERULAR FILTRATION RATE ML/MIN/1.73 SQ M.PREDICTED 93.3 mL/min/1.73m*2 Normal >60.0 [facility] Comment on above: Result Comment: The [facility]???s estimated glomerular filtration rate (eGFR) will no [...] individuals. Performed By: #### L [id number] #### [facility]) [address] [place] [address] Glucose [Mass/Vol] 83 mg/dL Normal 70-100 [facility] Comment on above: Performed By: #### L [id number] #### [facility] ([facility]) [address] [place] [address] Potassium [Moles/Vol] 4.2 mmol/L Normal 3.5-5.1 [facility] Comment on above: Performed By: #### L [id number] #### [facility]) [address] [place] [address] Protein [Mass/Vol] 7.1 g/dL Normal 6.0-8.3 [facility] Comment on above: Performed By: #### L [id number] #### [facility] ([facility]) [address] [place] [address] Sodium [Moles/Vol] 141 mmol/L Normal 136-145 [facility] Comment on above: Performed By: #### L [id number] #### [facility] ([facility]) [address] [place] [address] Urea nitrogen [Mass/Vol] 10 mg/dL Normal 7-25 [facility] Comment on above: Performed By: #### L [id number] #### [facility] ([facility]) [address] [place] [address] UREA NITROGEN/CREATININE (MASS RATIO) IN SER/PLAS 10.4 Normal [facility] Comment on above: Performed By: #### L [id number] #### [facility] ([facility]) [address] [place] [address] CONSULTon 10-08-2024 CONSULT -- Attestation signed by [...] mg ta (more content not included)... Normal [facility] EDNURSon 10-08-2024 EDNURS Arrival: transfer fr [facility] Complaint: cellulitis to right leg, hx surgery on 09/24 Notes: patient arrived on this day [facility] from [facility] for pain to the right leg. Previous surgery at [facility] on 09/24 for right leg tib/fib fracture. Per [facility] staff, patient arrived with increased pain, redness and swelling to right lower extremity. Ultrasound was negative for DVT. [facility] treated for cellulitis, administered dose of zosyn at 0330, vancomycin at 2030 and 5mg oxycontin at 1930. Patient endorsed non-compliance, did not have post surgery follow up appointment and has been putting weight on leg. History of hypertension, patient O2 desat to 88% when sleeping. Per [facility], patient non-compliant with bipap. Upon arrival, patient endorsed pain 8/10 and nausea. Patient denied chest pain, fever, chills and shortness of breath. Normal [facility] EDPROVon 10-08-2024 EDPROV [facility] [address] [facility] [id number] EMERGENCY DEPARTMENT ENCOUNTER CHIEF COMPLAINT Chief Complaint Patient presents with Cellulitis HISTORY OF PRESENT ILLNESS Matty Garces is a 54 y.o. male who presents with a Chief Complaint Patient presents with Cellulitis REVIEW OF SYSTEMS Review of Systems Musculoskeletal: Positive for arthralgias. Skin: Positive for rash. All other systems reviewed and are negative. The patient is a 54-year-old male who was transferred from [facility] for cellulitis involving recent right lower extremity surgery. Patient had surgical pair of a tibia fracture on September 24. The patient states that he went to [facility] emergency department today due to increased swelling. Patient was given Zosyn and vancomycin at [facility]. Patient states that he is having pain [...] evening meal. CHOLECALCIFEROL (VITAMIN D-3) 50 MCG (2000 UT) TABLET Take 1 tablet (50 mcg) [...] distress. B (more content not included)... Normal [facility] MAGNESIUMon 10-08-2024 Magnesium [Mass/Vol] 1.8 mg/dL Low 1.9-2.7 [facility] Comment on above: Performed By: #### L [id number] #### [facility] ([facility]) [address] [place] [address] SEDIMENTATION RATEon 025 SEDIMENTATION RATE, ERYTHROCYTE 56 mm/hr High <20 [facility] Comment on above: Performed By: #### L [id number] #### [facility] ([facility]) [address] [place] [address] VITAMIN D 25 HYDROXYon 10-08 CALCIDIOL (25 [place] VITAMIN D3) (NG/ML) IN SER/PLAS 37.0 ng/mL Normal 30.0-80.0 [facility] Comment on above: Result Comment: >80. 0 Toxicity possible Performed By: #### L [id number] ####[facility] ([facility])[address] [place] [address] 36on 10-04-2024 36 [facility] and is seeing the patient for wound care, PT, and OT. Seeing patient a couple times a week could specify a number of times. States is also doing dressing changes. [phone] [facility] Telephoneon 10-04-2024 Telephone [id number] Francisco Javier Garces 1970 Date Provider Department Center 10/04/2024 [id number] MCCORMACK MP ORTHO MPORTHO No family history on file Reason for Visit and Comments: Information [Other] [facility] 36on 09-29-2024 36 Patient in home PT called and wanted to confirm if Dr. Hahn does the in home therapy approvals/orders or if he had to follow up with his PCP, development writer informed her he does. Patient is scheduled for 10/05/24. [facility] BASIC METABOLIC PANELon 09-13 Anion gap [Moles/Vol] 7 mmol/L Normal 7-20 [facility] Comment on above: Performed By: #### L [id number] ####[facility] [place] [address] Calcium [Mass/Vol] 9.6 mg/dL Normal 8.6-10.3 [facility] Comment on above: Performed By: #### L [id number] ####[facility] [place] [address] Chloride [Moles/Vol] 98 mmol/L Normal 98-107 [facility] Comment on above: Performed By: #### L [id number] ####[facility] ([facility])[address] [place] [address] CO2 [Moles/Vol] 34 mmol/L High 21-31 [facility] Comment on above: Performed By: #### L [id number] ####[facility] [place] [address] Creatinine [Mass/Vol] 0.92 mg/dL Normal 0.70-1.30 [facility] Comment on above: Performed By: #### L [id number] ####[facility] ([facility] [place] [address] GLOMERULAR FILTRATION RATE ML/MIN/1.73 SQ M.PREDICTED 98.9 mL/min/1.73m*2 Normal >60.0 [facility] Comment on above: Result Comment: The [facility]???s estimated glomerular filtration rate (eGFR) will no [...] of individuals. Performed By: #### L [id number] ####[facility] ([facility])[address] [place] [address] Glucose [Mass/Vol] 99 mg/dL Normal 70-100 [facility] Comment on above: Performed By: #### L [id number] ####[facility] ([facility])[address] [place] [address] Potassium [Moles/Vol] 4.3 mmol/L Normal 3.5-5.1 [facility] Comment on above: Performed By: #### L [id number] ####[facility] [place] [address] Sodium [Moles/Vol] 135 mmol/L Low 136-145 [facility] Comment on above: Performed By: #### L [id number] ####[facility] [place] [address] Urea nitrogen [Mass/Vol] 20 mg/dL Normal 7-25 [facility] Comment on above: Performed By: #### L [id number] ####[facility] [place] [address] UREA NITROGEN/CREATININE (MASS RATIO) IN SER/PLAS 21.7 Normal [facility] Comment on above: Performed By: #### L [id number] ####[facility] ([facility])[address] [place] [address] CBCon 09-28-2024 Erythrocyte distribution width (RBC) [Ratio] 15.3 % High 11.5-15.0 [facility] Comment on above: Performed By: #### L [id number] #### [facility] ([facility]) [address] [place] [address] ERYTHROCYTE MEAN CORPUSCULAR HEMOGLOBIN CONCENTRATION (G/DL) BY AUTOMATED 30.9 g/dL Low 32.0-35.0 [facility] Comment on above: Performed By: #### L [id number] #### [facility] ([facility]) [address] [place] [address] Hematocrit (Bld) [Volume fraction] 44.4 % Normal 39.0-55.0 [facility] Comment on above: Performed By: #### L [id number] #### [facility]) [address] [place] [address] Hemoglobin (Bld) [Mass/Vol] 13.7 g/dL Normal 13.0-17.0 [facility] Comment on above: Performed By: #### L [id number] #### [facility]) [address] [place] [address] MCH (RBC) [Entitic mass] 26.5 pg Low 27.0-33.0 [facility] Comment on above: Performed By: #### L [id number] #### [facility]) [address] [place] [address] MCV (RBC) [Entitic vol] 85.9 fL Normal 82.0-98.0 [facility] Comment on above: Performed By: #### L [id number] #### [facility]) [address] [place] [address] PLATELETS (10*3/UL) IN BLOOD AUTOMATED COUNT 208 10*3/uL Normal 150-400 [facility] Comment on above: Performed By: #### L [id number] #### [facility]) [address] [place] [address] RBC (Bld) [#/Vol] 5.17 10*6/uL Normal 4.20-5.70 [facility] Comment on above: Performed By: #### L [id number] #### [facility]) [address] [place] [address] WBC (Bld) [#/Vol] 10.65 10*3/uL High 4.00-10.60 [facility] Comment on above: Performed By: #### L [id number] #### [facility]) [address] [place] [address] CONSULTon 09-28-2024 CONSULT Patient tried CPAP i [...] Referrals/Orders: Yes, Sleep Time Spent: 20 Normal [facility] DSon 09-28-2024 DS Admission Admitted 09/23/2024 for Fall, syncope Comminuted right tib/fib fracture CHF HTN Hypomagnesemia Enlarged right hilar node Enlarged prostate Discharge Diagnosis Fall, syncope Comminuted right tib/fib fracture CHF HTN Hypomagnesemia Enlarged right hilar node Enlarged prostate Obstructive sleep apnea Morbid obesity Atrial flutter, new onset Discharge Dis[place] [facility] [place] [...] Medications These medications were sent to [facility] - [place], [place] - [address] [place] [address] [place] [address], [facility] [address] acetaminophen 500 mg tablet aspirin 81 mg EC tablet calcium 500 mg calcium (1,250 mg) tablet cholecalciferol 50 MCG (1999 UT) tablet methocarbamoL 1,000 mg tablet sennosides-docusate [...] team was informed at approximately 1730 per [facility] that patient went into a-flutter and sustained for approximately 2 hours fro (more content not included)... Normal [facility] EDPROVon 09-28-2024 EDPROV This report has been cancelled. Normal [facility] Letter (Out)on 09-28-2024 Letter (Out) [id number] Francisco Javier Garces 1970 M Date Provider Department Center 09/28/2024 [id number], GENERIC PRO*INIT None No family history on file Normal [facility] MAGNESIUMon 09-28-2024 Magnesium [Mass/Vol] 2.0 mg/dL Normal 1.9-2.7 [facility] Comment on above: Performed By: #### L [id number] #### [facility] ([facility]) [address] [place] [address] NURSNOTEon 01-16-2025 NURSNOTE PT signed AMA paperwork with trama team. Pt left with belongings and family. AMA paperwork in patient chart. Normal [facility] PHOSPHORUSon 09-28-2024 Magnesium [Mass/Vol] 3.3 mg/dL Normal 2.5-5.0 [facility] Comment on above: Performed By: #### L [id number] ####[facility] ([facility])[address] [place] [address] 30on 09-27-2024 30 The patient is Moderately [...] barriers include continue medications as ordered Normal [facility] 30 Daily Case Managemen t Update Multidisciplinary rounds have been completed. Barriers to Discharge: Pending clinical course; POD3 IMN; 4L NC. Patient refusing CPaP at rest/sleep, Pulm brennen consulted and following. PT/OT recommending IPR, PMR consulted and recommend IPR. Patient and spouse would like to go home with [facility]. Referrals sent, pending accepting [facility] agency>>Radha Mendenhall [facility] accepting. DME recommended--ariadna mo, bedside commode--scripts written and face to face notes signed.>>need sent to [employer] for fulfillment. SW following. Diet: Dietary Orders (From admission, onward) Start Ordered 09/27/24 08 Special Kitchen Request Once Comments: Please add [...] R tib fib facrture Level of Consultation Repairer And Checker assumes full responsibility 09/23/24 1231 09/23/24 1221 [...] Post muscular skeletal surgical procedure 09/24/24 1242 [facility] 30 The patient is Moderately Stable [...] for pain as ordered maintain safety precautions. [facility] 30 The patient is Moderately Stable [...] and behaviors that affect risk of falls Ronks fall precautions as indicated by assessment Educate patient/family on patient safety, including physical limitations Instruct patient to call for assistance with activity based on assessment Modify environment to reduce risk of injury Normal [facility] BASIC METABOLIC PANELon 09-13 Anion gap [Moles/Vol] 9 mmol/L Normal 7-20 [facility] Comment on above: Performed By: #### L [id number] #### [facility] ([facility]) [address] [place] [address] Calcium [Mass/Vol] 9.3 mg/dL Normal 8.6-10.3 [facility] Comment on above: Performed By: #### L [id number] #### [facility] ([facility]) [address] [place] [address] Chloride [Moles/Vol] 99 mmol/L Normal 98-107 [facility] Comment on above: Performed By: #### L [id number] #### [facility] ([facility]) [address] [place] [address] CO2 [Moles/Vol] 33 mmol/L High 21-31 [facility] Comment on above: Performed By: #### L [id number] #### [facility] ([facility]) [address] [place] [address] Creatinine [Mass/Vol] 0.89 mg/dL Normal 0.70-1.30 [facility] Comment on above: Performed By: #### L [id number] #### [facility]) [address] [facility] [place] [address] GLOMERULAR FILTRATION RATE ML/MIN/1.73 SQ M.PREDICTED 101.8 mL/min/1.73m*2 Normal >60.0 [facility] Comment on above: Result Comment: The [facility]???s estimated glomerular filtration rate (eGFR) will no [...] individuals. Performed By: #### L [id number] #### [facility]) [address] [place] [address] Glucose [Mass/Vol] 95 mg/dL Normal 70-100 [facility] Comment on above: Performed By: #### L [id number] #### [facility]) [address] [place] [address] Potassium [Moles/Vol] 4.1 mmol/L Normal 3.5-5.1 [facility] Comment on above: Performed By: #### L [id number] #### [facility]) [address] [place] [address] Sodium [Moles/Vol] 137 mmol/L Normal 136-145 [facility] Comment on above: Performed By: #### L [id number] #### [facility]) [address] [place] [address] Urea nitrogen [Mass/Vol] 17 mg/dL Normal 7-25 [facility] Comment on above: Performed By: #### L [id number] #### [facility]) [address] [place] [address] UREA NITROGEN/CREATININE (MASS RATIO) IN SER/PLAS 19.1 Normal [facility] Comment on above: Performed By: #### L [id number] #### [facility] [address] [place] [address] CBCon 09-27-2024 Erythrocyte distribution width (RBC) [Ratio] 15.4 % High 11.5-15.0 [facility] Comment on above: Performed By: #### L [id number] #### [facility]) [address] [place] [address] ERYTHROCYTE MEAN CORPUSCULAR HEMOGLOBIN CONCENTRATION (G/DL) BY AUTOMATED 30.8 g/dL Low 32.0-35.0 [facility] Comment on above: Performed By: #### L [id number] #### [facility]) [address] [place] [address] Hematocrit (Bld) [Volume fraction] 45.5 % Normal 39.0-55.0 [facility] Comment on above: Performed By: #### L [id number] #### [facility] [address] [place] [address] Hemoglobin (Bld) [Mass/Vol] 14.0 g/dL Normal 13.0-17.0 [facility] Comment on above: Performed By: #### L [id number] #### [facility]) [address] [place] [address] MCH (RBC) [Entitic mass] 26.5 pg Low 27.0-33.0 [facility] Comment on above: Performed By: #### L [id number] #### [facility] [address] [place] [address] MCV (RBC) [Entitic vol] 86.0 fL Normal 82.0-98.0 [facility] Comment on above: Performed By: #### L [id number] #### [facility] [address] [place] [address] PLATELETS (10*3/UL) IN BLOOD AUTOMATED COUNT 199 10*3/uL Normal 150-400 [facility] Comment on above: Performed By: #### L [id number] #### [facility]) [address] [place] [address] RBC (Bld) [#/Vol] 5.29 10*6/uL Normal 4.20-5.70 [facility] Comment on above: Performed By: #### L [id number] #### [facility]) [address] [place] [address] WBC (Bld) [#/Vol] 10.21 10*3/uL Normal 4.00-10.60 [facility] Comment on above: Performed By: #### L [id number] #### [facility]) [address] [place] [address] MAGNESIUMon 09-27-2024 Magnesium [Mass/Vol] 1.9 mg/dL Normal 1.9-2.7 [facility] Comment on above: Performed By: #### L [id number] #### [facility] [address] [place] [address] PHOSPHORUSon 09-27-2024 Magnesium [Mass/Vol] 4.4 mg/dL Normal 2.5-5.0 [facility] Comment on above: Performed By: #### L [id number] #### [facility]) [address] [place] [address] VENOUS BLOOD GAS WITH IONIZE D CALCIUMon 09-27-2024 Base excess Calc (BldV) [Moles/Vol] 9.2 mmol/L Normal [facility] Comment on above: Performed By: #### L [id number] ####[facility]PIR[facility] [id number] [place] [address] [place] CALCIUM IONIZED (MMOL/L) IN BLOOD 1.27 mmol/L Normal 1.15-1.33 [facility] Comment on above: Performed By: #### L [id number] ####[facility] RES[facility] [id number] [place] [address] [place] CO2 (BldV) [Partial pressure] 50 mm[Hg] Normal 40-50 [facility] Comment on above: Performed By: #### L [id number] ####[facility] RESPIRAT[facility] [id number] [place] [address] [facility] HCO3 (Bld) [Moles/Vol] 34.8 mmol/L Normal [facility] Comment on above: Performed By: #### L [id number] ####[facility] RESPIRATORY [id number] [place] [address] [facility] Oxygen (BldV) [Partial pressure] 53 mm[Hg] High 35-45 [facility] Comment on above: Performed By: #### L [id number] ####[facility] RESPIRATORY [id number] [place] [address] [facility] OXYGEN SATURATION (%) IN VENOUS BLOOD 87.1 % High 65.0-75.0 [facility] Comment on above: Performed By: #### L [id number] ####[facility] RESPIRATORY [id number] [place] [address] [facility] PH OF VENOUS BLOOD 7.45 High 7.31-7.41 [facility] Comment on above: Performed By: #### L [id number] ####[facility] RESPIRATORY [id number] [place] [address] [facility] BASIC METABOLIC PANELon 09-13 Anion gap [Moles/Vol] 8 mmol/L Normal 7-20 [facility] Comment on above: Performed By: #### L [id number] #### [facility] ([facility]) [address] [place] [address] Calcium [Mass/Vol] 9.4 mg/dL Normal 8.6-10.3 [facility] Comment on above: Performed By: #### L [id number] #### [facility] ([facility]) [address] [place] [address] Chloride [Moles/Vol] 99 mmol/L Normal 98-107 [facility] Comment on above: Performed By: #### L [id number] #### [facility] ([facility]) [address] [place] [address] CO2 [Moles/Vol] 36 mmol/L High 21-31 [facility] Comment on above: Performed By: #### L [id number] #### [facility] [address] [place] [address] Creatinine [Mass/Vol] 0.91 mg/dL Normal 0.70-1.30 [facility] Comment on above: Performed By: #### L [id number] #### [facility] [address] [facility] [place] [address] GLOMERULAR FILTRATION RATE ML/MIN/1.73 SQ M.PREDICTED 100.2 mL/min/1.73m*2 Normal >60.0 [facility] Comment on above: Result Comment: [facility]???s estimated glomerular filtration rate (eGFR) will no [...] individuals. Performed By: #### L [id number] #### [facility]) [address] [place] [address] Glucose [Mass/Vol] 85 mg/dL Normal 70-100 [facility] Comment on above: Performed By: #### L [id number] #### [facility] ([facility]) [address] [place] [address] Potassium [Moles/Vol] 3.8 mmol/L Normal 3.5-5.1 [facility] Comment on above: Performed By: #### L [id number] #### [facility] ([facility]) [address] [place] [address] Sodium [Moles/Vol] 139 mmol/L Normal 136-145 [facility] Comment on above: Performed By: #### L [id number] #### [facility] ([facility]) [address] [place] [address] Urea nitrogen [Mass/Vol] 18 mg/dL Normal 7-25 [facility] Comment on above: Performed By: #### L [id number] #### [facility] ([facility]) [address] [place] [address] UREA NITROGEN/CREATININE (MASS RATIO) IN SER/PLAS 19.8 Normal [facility] Comment on above: Performed By: #### L [id number] #### [facility] ([facility] [address] [place] [address] CBCon 09-26-2024 Erythrocyte distribution width (RBC) [Ratio] 15.4 % High 11.5-15.0 [facility] Comment on above: Performed By: #### L [id number] #### [facility] ([facility]) [address] [place] [address] ERYTHROCYTE MEAN CORPUSCULAR HEMOGLOBIN CONCENTRATION (G/DL) BY AUTOMATED 31.1 g/dL Low 32.0-35.0 [facility] Comment on above: Performed By: #### L [id number] #### [facility] ([facility]) [address] [place] [address] Hematocrit (Bld) [Volume fraction] 43.8 % Normal 39.0-55.0 [facility] Comment on above: Performed By: #### L [id number] #### [facility] ([facility]) [address] [place] [address] Hemoglobin (Bld) [Mass/Vol] 13.6 g/dL Normal 13.0-17.0 [facility] Comment on above: Performed By: #### L [id number] #### [facility] ([facility]) [address] [place] [address] MCH (RBC) [Entitic mass] 26.3 pg Low 27.0-33.0 [facility] Comment on above: Performed By: #### L [id number] #### [facility] ([facility]) [address] [place] [address] MCV (RBC) [Entitic vol] 84.7 fL Normal 82.0-98.0 [facility] Comment on above: Performed By: #### L [id number] #### [facility] ([facility]) [address] [place] [address] PLATELETS (10*3/UL) IN BLOOD AUTOMATED COUNT 186 10*3/uL Normal 150-400 [facility] Comment on above: Performed By: #### L [id number] #### [facility] ([facility]) [address] [place] [address] RBC (Bld) [#/Vol] 5.17 10*6/uL Normal 4.20-5.70 [facility] Comment on above: Performed By: #### L [id number] #### [facility] ([facility]) [address] [place] [address] WBC (Bld) [#/Vol] 9.63 10*3/uL Normal 4.00-10.60 [facility] Comment on above: Performed By: #### L [id number] #### [facility] ([facility]) [address] [place] [address] MAGNESIUMon 09-26-2024 Magnesium [Mass/Vol] 1.9 mg/dL Normal 1.9-2.7 [facility] Comment on above: Performed By: #### L [id number] #### [facility] ([facility]) [address] [place] [address] PHOSPHORUSon 09-26-2024 Magnesium [Mass/Vol] 2.6 mg/dL Normal 2.5-5.0 [facility] Comment on above: Performed By: #### L [id number] #### [facility] ([facility]) [address] [place] [address] 30on 09-25-2024 30 Problem: Pain - Adul [...] barriers include consult for respiratory therapy. Normal [facility] 30 Daily Case Managemen t Update Multidisciplinary [...] spouse would like to go home with [facility]. Referrals sent, pending accepting [facility] agency. DME recommended--wheelchai r, rolling walker, bedside commode--scripts written and face to face [...] R tib fib facrture Level of Consultation Repairer And Checker assumes full responsibility 09/23/24 1231 09/23/24 1221 [...] muscular skeletal surgical procedure 09/24/24 1242 Normal [facility] BASIC METABOLIC PANELon 09-13 Anion gap [Moles/Vol] 9 mmol/L Normal 7-20 [facility] Comment on above: Performed By: #### L [id number] ####[facility] ([facility])[address] [place] [address] Calcium [Mass/Vol] 8.9 mg/dL Normal 8.6-10.3 [facility] Comment on above: Performed By: #### L [id number] ####[facility] ([facility])[address] [place] [address] Chloride [Moles/Vol] 97 mmol/L Low 98-107 [facility] Comment on above: Performed By: #### L [id number] ####[facility] ([facility])[address] [place] [address] CO2 [Moles/Vol] 32 mmol/L High 21-31 [facility] Comment on above: Performed By: #### L [id number] ####[facility] ([facility])[address] [place] [address] Creatinine [Mass/Vol] 0.91 mg/dL Normal 0.70-1.30 [facility] Comment on above: Performed By: #### L [id number] ####[facility] ([facility])[address] [place] [address] GLOMERULAR FILTRATION RATE ML/MIN/1.73 SQ M.PREDICTED 100.2 mL/min/1.73m*2 Normal >60.0 [facility] Comment on above: Result Comment: The [facility]???s estimated glomerular filtration rate (eGFR) will no [...] of individuals. Performed By: #### L [id number] ####[facility] ([facility])[address] [place] [address] Glucose [Mass/Vol] 141 mg/dL High 70-100 [facility] Comment on above: Performed By: #### L [id number] ####[facility] ([facility])[address] [place] [address] Potassium [Moles/Vol] 4.2 mmol/L Normal 3.5-5.1 [facility] Comment on above: Performed By: #### L [id number] ####[facility] ([facility])[address] [place] [address] Sodium [Moles/Vol] 134 mmol/L Low 136-145 [facility] Comment on above: Performed By: #### L [id number] ####[facility] ([facility])[address] [place] [address] Urea nitrogen [Mass/Vol] 15 mg/dL Normal 7-25 [facility] Comment on above: Performed By: #### L [id number] ####[facility] ([facility])[address] [facility] [address] UREA NITROGEN/CREATININE (MASS RATIO) IN SER/PLAS 16.5 Normal [facility] Comment on above: Performed By: #### L [id number] ####[facility] ([facility])[address] [place] [address] CBCon 09-25-2024 Erythrocyte distribution width (RBC) [Ratio] 14.9 % Normal 11.5-15.0 [facility] Comment on above: Performed By: #### L [id number] #### [facility] ([facility]) [address] [place] [address] ERYTHROCYTE MEAN CORPUSCULAR HEMOGLOBIN CONCENTRATION (G/DL) BY AUTOMATED 31.1 g/dL Low 32.0-35.0 [facility] Comment on above: Performed By: #### L [id number] #### [facility] ([facility]) [address] [place] [address] Hematocrit (Bld) [Volume fraction] 45.4 % Normal 39.0-55.0 [facility] Comment on above: Performed By: #### L [id number] #### [facility] ([facility]) [address] [place] [address] Hemoglobin (Bld) [Mass/Vol] 14.1 g/dL Normal 13.0-17.0 [facility] Comment on above: Performed By: #### L [id number] #### [facility] ([facility]) [address] [place] [address] MCH (RBC) [Entitic mass] 26.3 pg Low 27.0-33.0 [facility] Comment on above: Performed By: #### L [id number] #### [facility] ([facility]) [address] [place] [address] MCV (RBC) [Entitic vol] 84.5 fL Normal 82.0-98.0 [facility] Comment on above: Performed By: #### L [id number] #### [facility] ([facility]) [address] [place] [address] PLATELETS (10*3/UL) IN BLOOD AUTOMATED COUNT 205 10*3/uL Normal 150-400 [facility] Comment on above: Performed By: #### L [id number] #### [facility] ([facility]) [address] [place] [address] RBC (Bld) [#/Vol] 5.37 10*6/uL Normal 4.20-5.70 [facility] Comment on above: Performed By: #### L [id number] #### [facility] ([facility]) [address] [place] [address] WBC (Bld) [#/Vol] 14.37 10*3/uL High 4.00-10.60 [facility] Comment on above: Performed By: #### L [id number] #### [facility] ([facility]) [address] [place] [address] MAGNESIUMon 09-25-2024 Magnesium [Mass/Vol] 2.1 mg/dL Normal 1.9-2.7 [facility] Comment on above: Performed By: #### L [id number] ####[facility] ([facility])[address] [place] [address] NURSNOTEon 09-25-2024 NURSLEONORE Trauma RN met adrian dunham at bedside and provided the Trauma Services Patient Brochure. Patient will follow-up with Orthopedics 10/05/2024 at 0900. No further needs currently. Normal [facility] PHOSPHORUSon 09-25-2024 Magnesium [Mass/Vol] 2.8 mg/dL Normal 2.5-5.0 [facility] Comment on above: Performed By: #### L [id number] ####[facility] ([facility])[address] [place] [address] 30on 09-24-2024 30 The patient is Moderately [...] Free from fall injury Outcome: Progressing Normal [facility] BASIC METABOLIC PANELon 09-13 Anion gap [Moles/Vol] 8 mmol/L Normal 7-20 [facility] Comment on above: Performed By: #### L [id number] ####[facility] ([facility])[address] [place] [address] Calcium [Mass/Vol] 9.1 mg/dL Normal 8.6-10.3 [facility] Comment on above: Performed By: #### L [id number] ####[facility] ([facility])[address] [place] [address] Chloride [Moles/Vol] 98 mmol/L Normal 98-107 [facility] Comment on above: Performed By: #### L [id number] ####[facility] ([facility])[address] [place] [address] CO2 [Moles/Vol] 35 mmol/L High 21-31 [facility] Comment on above: Performed By: #### L [id number] ####[facility] ([facility])[address] [place] [address] Creatinine [Mass/Vol] 1.02 mg/dL Normal 0.70-1.30 [facility] Comment on above: Performed By: #### L [id number] ####[facility] ([facility])[address] [place] [address] GLOMERULAR FILTRATION RATE ML/MIN/1.73 SQ M.PREDICTED 87.3 mL/min/1.73m*2 Normal >60.0 [facility] Comment on above: Result Comment: The [facility]???s estimated glomerular filtration rate (eGFR) will no [...] of individuals. Performed By: #### L [id number] ####[facility] ([facility])[address] [place] [address] Glucose [Mass/Vol] 103 mg/dL High 70-100 [facility] Comment on above: Performed By: #### L [id number] ####[facility] ([facility])[address] [place] [address] Potassium [Moles/Vol] 4.2 mmol/L Normal 3.5-5.1 [facility] Comment on above: Performed By: #### L [id number] ####[facility] ([facility])[address] [place] [address] Sodium [Moles/Vol] 137 mmol/L Normal 136-145 [facility] Comment on above: Performed By: #### L [id number] ####[facility] ([facility])[address] [place] [address] Urea nitrogen [Mass/Vol] 11 mg/dL Normal 7-25 [facility] Comment on above: Performed By: #### L [id number] ####[facility] ([facility])[address] [place] [address] UREA NITROGEN/CREATININE (MASS RATIO) IN SER/PLAS 10.8 Normal [facility] Comment on above: Performed By: #### L [id number] ####[facility] ([facility])[address] [place] [address] CBCon 09-24-2024 Erythrocyte distribution width (RBC) [Ratio] 15.5 % High 11.5-15.0 [facility] Comment on above: Performed By: #### L [id number] #### [facility] ([facility]) [address] [facility] [place] [address] ERYTHROCYTE MEAN CORPUSCULAR HEMOGLOBIN CONCENTRATION (G/DL) BY AUTOMATED 30.4 g/dL Low 32.0-35.0 [facility] Comment on above: Performed By: #### L [id number] #### [facility] ([facility]) [address] [place] [address] Hematocrit (Bld) [Volume fraction] 46.4 % Normal 39.0-55.0 [facility] Comment on above: Performed By: #### L [id number] #### [facility] ([facility]) [address] [facility] [place] [address] Hemoglobin (Bld) [Mass/Vol] 14.1 g/dL Normal 13.0-17.0 [facility] Comment on above: Performed By: #### L [id number] #### [facility] ([facility]) [address] [place] [address] MCH (RBC) [Entitic mass] 26.4 pg Low 27.0-33.0 [facility] Comment on above: Performed By: #### L [id number] #### [facility] ([facility]) [address] [place] [address] MCV (RBC) [Entitic vol] 86.7 fL Normal 82.0-98.0 [facility] Comment on above: Performed By: #### L [id number] #### [facility] ([facility]) [address] [place] [address] PLATELETS (10*3/UL) IN BLOOD AUTOMATED COUNT 175 10*3/uL Normal 150-400 [facility] Comment on above: Performed By: #### L [id number] #### [facility] ([facility]) [address] [place] [address] RBC (Bld) [#/Vol] 5.35 10*6/uL Normal 4.20-5.70 [facility] Comment on above: Performed By: #### L [id number] #### [facility] ([facility]) [address] [place] [address] WBC (Bld) [#/Vol] 7.56 10*3/uL Normal 4.00-10.60 [facility] Comment on above: Performed By: #### L [id number] #### [facility] ([facility]) [address] [place] [address] CONSULTon 09-24-2024 CONSULT Physical Medicine an d Rehabilitation Consult Note Patient not staffed by PM&R today due to surgery today for IMN placement. Our team will staff tomorrow, 09/25/23. Silvia Zaldivar MD Normal [facility] MAGNESIUMon 09-24-2024 Magnesium [Mass/Vol] 2.2 mg/dL Normal 1.9-2.7 [facility] Comment on above: Performed By: #### L [id number] #### [facility]) [address] [place] [address] OPNOTEon 09-24-2024 OPNOTE -- Attestation signed by [...] Operative Note Date: 09/23/2024 - 09/24/2024 Location: [facility] OR Name: Matty Garces, : 1970, [...] by intramedullary implant with interlocking screws [CPT: 93803] Stress exam of right ankle under anesthesia [CPT: 50899] Intraoperative use of fluoroscopy less than 1 hour by physician [CPT: 71584] Surgeons Primary: Sandrine Hahn MD Resident - [...] mm x 34 mm interlocking screw Staff: Bakery Assistant: Emi Francis RN Desk Representative: CHARLINE Montejo Scrub Person: Araseli Butler CST Indications: Matty Garces is an 53 y.o. male who presented as a transfer from [facility] on 09/23/2024. Patient was transferred due to findings of a right distal third tibial shaft fracture after a fall in the shower. The fracture was closed and was subsequently reduced and splinted at [place] in a long-leg splint. Patient made stable [...] soft t (more content not included)... Normal [facility] PHOSPHORUSon 09-24-2024 Magnesium [Mass/Vol] 4.0 mg/dL Normal 2.5-5.0 [facility] Comment on above: Performed By: #### L [id number] #### [facility]) [address] [place] [address] POCT GLUCOSE METER UNSOLICIT ED RESULTSon 09-24-2024 Glucose [Mass/Vol] 100 mg/dL Normal 70-105 [facility] Comment on above: Order Comment: Waive d Testing in the ED is performed under the ED CLIA certificate #[id number]. Result Comment: asor [id number] Performed By: #### L [id number] #### [facility]) [address] [place] [address] APTTon 09-23-2024 ACTIVATED PARTIAL THROMBOPLASTIN TIME IN PPP BY COAGULATION ASSAY 31.2 Seconds Normal 25.0-35.0 [facility] Comment on above: Result Comment: Clin ical significance of the APTT is questionable in the presence of heparin. Performed By: #### L [id number] ####[facility] ([facility])[address] [place] [address] CBC WITH AUTO DIFFERENTIALon 09-23-2024 Basophils (Bld) [#/Vol] 0.05 10*3/uL Normal 0.00-0.20 [facility] Comment on above: Performed By: #### L [id number] ####[facility] ([facility])[address] [place] [address] Basophils/100 WBC (Bld) 0.5 % Normal 0.0-1.0 [facility] Comment on above: Performed By: #### L [id number] ####[facility] ([facility])[address] [place] [address] Eosinophils (Bld) [#/Vol] 0.11 10*3/uL Normal 0.00-0.50 [facility] Comment on above: Performed By: #### L [id number] ####[facility] ([facility])[address] [place] [address] Eosinophils/100 WBC (Bld) 1.0 % Normal 0.0-6.0 [facility] Comment on above: Performed By: #### L [id number] ####[facility] ([facility])[address] [place] [address] Erythrocyte distribution width (RBC) [Ratio] 15.9 % High 11.5-15.0 [facility] Comment on above: Performed By: #### L [id number] ####[facility] ([facility])[address] [place] [address] ERYTHROCYTE MEAN CORPUSCULAR HEMOGLOBIN CONCENTRATION (G/DL) BY AUTOMATED 30.3 g/dL Low 32.0-35.0 [facility] Comment on above: Performed By: #### L [id number] ####[facility] ([facility])[address] [place] [address] Hematocrit (Bld) [Volume fraction] 47.8 % Normal 39.0-55.0 [facility] Comment on above: Performed By: #### L [id number] ####[facility] ([facility])[address] [place] [address] Hemoglobin (Bld) [Mass/Vol] 14.5 g/dL Normal 13.0-17.0 [facility] Comment on above: Performed By: #### L [id number] ####[facility] ([facility])[address] [place] [address] Immature granulocytes (Bld) [#/Vol] 0.10 10*3/uL Normal 0.00-0.20 [facility] Comment on above: Performed By: #### L [id number] ####[facility] ([facility])[address] [place] [address] Immature granulocytes/100 WBC (Bld) 0.9 % Normal 0.0-1.0 [facility] Comment on above: Performed By: #### L [id number] ####[facility] ([facility])[address] [place] [address] Lymphocytes (Bld) [#/Vol] 0.74 10*3/uL Low 1.20-4.00 [facility] Comment on above: Performed By: #### L [id number] ####[facility] ([facility])[address] [place] [address] Lymphocytes/100 WBC (Bld) 7.0 % Low 20.0-45.0 [facility] Comment on above: Performed By: #### L [id number] ####[facility] ([facility])[address] [place] [address] MCH (RBC) [Entitic mass] 26.4 pg Low 27.0-33.0 [facility] Comment on above: Performed By: #### L [id number] ####[facility] ([facility])[address] [place] [address] MCV (RBC) [Entitic vol] 87.1 fL Normal 82.0-98.0 [facility] Comment on above: Performed By: #### L [id number] ####[facility] ([facility])[address] [place] [address] Monocytes (Bld) [#/Vol] 0.73 10*3/uL Normal 0.10-1.00 [facility] Comment on above: Performed By: #### L [id number] ####[facility] ([facility])[address] [place] [address] Monocytes/100 WBC (Bld) 6.9 % Normal 5.0-12.0 [facility] Comment on above: Performed By: #### L [id number] ####[facility] ([facility] [place] [address] Neutrophils (Bld) [#/Vol] 8.83 10*3/uL High 1.60-7.60 [facility] Comment on above: Performed By: #### L [id number] ####[facility])[address] [place] [address] Neutrophils/100 WBC (Bld) 83.7 % High 40.0-72.0 [facility] Comment on above: Performed By: #### L [id number] ####[facility] ([facility])[address] [place] [address] NRBC (PER 100 WBCS) BY AUTOMATED COUNT 0.0 % Normal 0 [facility] Comment on above: Performed By: #### L [id number] ####[facility] ([facility])[address] [place] [address] PLATELETS (10*3/UL) IN BLOOD AUTOMATED COUNT 188 10*3/uL Normal 150-400 [facility] Comment on above: Performed By: #### L [id number] ####[facility])[address] [place], [place] [address] RBC (Bld) [#/Vol] 5.49 10*6/uL Normal 4.20-5.70 [facility] Comment on above: Performed By: #### L [id number] ####[facility])[address] [place] [address] WBC (Bld) [#/Vol] 10.56 10*3/uL Normal 4.00-10.60 [facility] Comment on above: Performed By: #### L [id number] ####[facility] ([facility] [place] [address] COMPREHENSIVE METABOLIC PANE Clif 09-23-2024 Albumin [Mass/Vol] 3.9 g/dL Normal 3.5-5.7 [facility] Comment on above: Performed By: #### L [id number] ####[facility] ([facility])[address] [place] [address] ALP [Catalytic activity/Vol] 98 U/L Normal 34-104 [facility] Comment on above: Performed By: #### L [id number] ####[facility] ([facility])[address] [place] [address] ALT [Catalytic activity/Vol] 34 U/L Normal 7-52 [facility] Comment on above: Performed By: #### L [id number] ####[facility] ([facility])[address] [place] [address] Anion gap [Moles/Vol] 11 mmol/L Normal 7-20 [facility] Comment on above: Performed By: #### L [id number] ####[facility] ([facility])[address] [place] [address] AST [Catalytic activity/Vol] 63 U/L High 13-39 [facility] Comment on above: Performed By: #### L [id number] ####[facility] ([facility])[address] [place] [address] Bilirubin [Mass/Vol] 0.7 mg/dL Normal 0.3-1.0 [facility] Comment on above: Performed By: #### L [id number] ####[facility] ([facility])[address] [place] [address] Calcium [Mass/Vol] 8.9 mg/dL Normal 8.6-10.3 [facility] Comment on above: Performed By: #### L [id number] ####[facility] ([facility])[address] [place] [address] Chloride [Moles/Vol] 101 mmol/L Normal 98-107 [facility] Comment on above: Performed By: #### L [id number] ####[facility] ([facility])[address] [place] [address] CO2 [Moles/Vol] 27 mmol/L Normal 21-31 [facility] Comment on above: Performed By: #### L [id number] ####[facility] ([facility])[address] [place] [address] Creatinine [Mass/Vol] 0.96 mg/dL Normal 0.70-1.30 [facility] Comment on above: Performed By: #### L [id number] ####[facility] ([facility])[address] [place] [address] GLOMERULAR FILTRATION RATE ML/MIN/1.73 SQ M.PREDICTED 93.9 mL/min/1.73m*2 Normal >60.0 [facility] Comment on above: Result Comment: [facility]???s estimated glomerular filtration rate (eGFR) will no [...] of individuals. Performed By: #### L [id number] ####[facility] ([facility])[address] [place] [address] Glucose [Mass/Vol] 93 mg/dL Normal 70-100 [facility] Comment on above: Performed By: #### L [id number] ####[facility] ([facility])[address] [place] [address] Potassium [Moles/Vol] 4.3 mmol/L Normal 3.5-5.1 [facility] Comment on above: Performed By: #### L [id number] ####[facility] ([facility])[address] [place] [address] Protein [Mass/Vol] 7.2 g/dL Normal 6.0-8.3 [facility] Comment on above: Performed By: #### L [id number] ####[facility] ([facility])[address] [place] [address] Sodium [Moles/Vol] 135 mmol/L Low 136-145 [facility] Comment on above: Performed By: #### L [id number] ####[facility] (BEAKER)[address] [place] [address] Urea nitrogen [Mass/Vol] 8 mg/dL Normal 7-25 [facility] Comment on above: Performed By: #### L [id number] ####[facility] (ALY)[address] [place] [address] UREA NITROGEN/CREATININE (MASS RATIO) IN SER/PLAS 8.3 Normal [facility] Comment on above: Performed By: #### L AB17 ####[facility] ([place])[address] [place] [address] CONSULTon 09-23-2024 CONSULT -- Attestation signed by [...] Alvarez MD Orthopaedic Surgery, Resident Ortho Pager [phone] 09/23/24 6:55 PM May contact the on-call resident with any concerns via the Orthopaedic pager at any time. Normal [facility] CT ABDOMEN PELVIS W IV CONTR Barak [...] advised. * Electronically signed: Fahad Frazier. Normal [facility] CT CERVICAL SPINE WO IV CONT RASTon [...] nor listhesis. Electronically signed: Fahad Frazier. Normal [facility] CT CHEST W IV CONTRASTon CT CHEST [...] is recommended. Electronically signed: Fahad Frazier. Normal [facility] CT HEAD WO IV CONTRASTon CT HEAD [...] brain * Electronically signed: Fahad Frazier. Normal [facility] CT TIBIA FIBULA RIGHT WO IV CONTRASTon [...] the knee Electronically signed: Fahad Frazier. 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 Patient arrives with Rt leg splinted Normal [facility] EDPROVon 09-23-2024 EDPROV History of Present Illness Chief Complaint Patient presents with Leg Injury Initial evaluation completed by Dr. Lang. Matty Garces is a 53 y/o male presenting to the ED with c/o leg injury. Pt was transferred from [facility] for right distal tibfib fracture. Pt [...] injection 1 mg (1 mg intravenous Given 1/11/25 1057) Ortho will come see pt. Trauma [...] Procedure Abnormality Status --------- ------ CBC auto differential[[id number]] Abnormal Final result Please view results for these tests on the individual orders. TYPE AND SCREEN ABO G (more content not included)... Normal [facility] ETHANOLon 09-23-2024 ETHANOL (MG/DL) IN SER/PLAS <10 Normal <10 [facility] Comment on above: Performed By: #### L AB46 #### [facility] [employer]) [address] [place] [address] ETHANOL CALCULATED (%) <0.01 Normal [facility] Comment on above: Performed By: #### L AB46 #### [facility] [employer]) [address] [place] [address] HPon 09-23-2024 [facility] Trauma Surgery Chief Complaint: Trauma Fall Mechanism of Injury: 53 y.o. year old male who was brought in via EMS. He had no C-collar or back board in place. Circumstances of injury: Patient states that he was recently admitted to [place] for cellulitis to the [facility], he was discharged yesterday and this morning was home, he got out of bed to take a shower and had a micro seizure and heard his right ankle snap. Denies hitting head or LOC but admits that he doesn't remember the whole event. He went back to [place] ED where a right tib/fib fracture was found and patient was transferred to [facility] Of note patient is on anticoagulant/antiplat elets. Baby aspirin, however he was receiving Shots to prevent blood clots while inpatient at [place] Review of Systems: General: No For Chills, [...] Marijuana. Family History: pulled available information in [facility] from previous visits No family history on file. Objective Vitals: BP: (145-164)/(86-96) 149/86 (09/23 1145) Systolic BP Percentile: -- Diastolic BP Percentile: [...] lb)] 136 kg (300 lb) (09/23 1048) [place] Coma Scale Score: 15 No intake or [...] Neck: Cervica (more content not included)... Normal [facility] LACTIC ACID, PLASMAon 2024 LACTATE (MMOL/L) IN SER/PLAS 0.6 mmol/L Normal 0.5-2.2 [facility] Comment on above: Performed By: #### L AB95 #### [facility] (BEAKER) [address] [place] [address] MAGNESIUMon 09-23-2024 Magnesium [Mass/Vol] 1.8 mg/dL Low 1.9-2.7 [facility] Comment on above: Performed By: #### L [id number] ####[facility] (BEAKER)[address] [place] [address] PHOSPHORUSon 09-23-2024 Magnesium [Mass/Vol] 3.5 mg/dL Normal 2.5-5.0 [facility] Comment on above: Performed By: #### L AB113 #### [facility] (BEAKER) [address] [place] [address] PROTIME-INRon 09-23-2024 INR IN PPP BY COAGULATION ASSAY 1.28 High 0.90-1.10 [facility] Comment on above: Result [...] 1995;108:231S-246S. Performed By: #### L AB46 #### [facility] [address] [place] [address] PROTHROMBIN TIME (PT) IN PPP BY COAGULATION ASSAY 15.9 Seconds High 12.3-14.8 [facility] Comment on above: Performed By: #### L AB46 #### [facility]) [address] [place] [address] TOXICOLOGY PANEL URINEon AMPHETAMINE+METHAMPH ETAMINE SCREEN (PRESENCE) IN URINE Negative Normal Negative [facility] Comment on above: Performed By: #### L [id number] #### [facility] [address] [place] [address] BARBITURATES PRESENCE IN URINE BY SCREEN METHOD Negative Normal Negative [facility] Comment on above: Performed By: #### L [id number] #### [facility]) [address] [place] [address] Benzodiazepines Ql (U) Negative Normal Negative [facility] Comment on above: Performed By: #### L [id number] #### [facility] ([facility]) [address] [place] [address] CANNABINOID (PRESENCE) IN URINE BY SCREEN METHOD Negative Normal Negative [facility] Comment on above: Performed By: #### L [id number] #### [facility] ([facility]) [address] [place] [address] Cocaine Ql (U) Negative Normal Negative [facility] Comment on above: Performed By: #### L AB113 #### [facility] ([facility]) [address] [place] [address] METHADONE (PRESENCE) IN URINE BY SCREEN METHOD Negative Normal Negative [facility] Comment on above: Performed By: #### L [id number] #### [facility] ([facility]) [address] [place] [address] OPIATES (PRESENCE) IN URINE BY SCREEN METHOD Positive Abnormal Negative [facility] Comment on above: Performed By: #### L [id number] #### [facility] ([facility]) [address] [facility] [place] [address] PHENCYCLIDINE PRESENCE IN URINE BY SCREEN METHOD Negative Normal Negative [facility] Comment on above: Performed By: #### L [id number] #### [facility] ([facility]) [address] [place] [address] Propoxyphene Screen Ql (U) Negative Normal Negative [facility] Comment on above: Performed By: #### L [id number] #### [facility] ([facility]) [address] [place] [address] TRICYCLIC ANTIDEPRESSANTS (PRESENCE) IN URINE Negative Normal Negative [facility] Comment on above: Performed By: #### L [id number] #### [facility] ([facility]) [address] [facility] [place] [address] TROPONIN Ion 09-23-2024 Troponin I.cardiac [Mass/Vol] 0.01 ng/mL Normal 0.00-0.04 [facility] Comment on above: Performed By: #### L AB46 #### [facility] ([facility]) [address] [place] [address] TYPE AND SCREENon 09-23-2024 AB SCREEN Negative Normal [facility] Comment on above: Performed By: #### L AB46 #### [facility] ([facility]) [address] [place] [address] ABO group Nom (Bld) A Normal [facility] Comment on above: Performed By: #### L AB46 #### [facility] ([facility]) [address] [place] [address] RH TYPE IN BLOOD Positive Normal [facility] Comment on above: Performed By: #### L AB46 #### [facility] ([facility]) [address] [place] [address] URINALYSISon 09-23-2024 BILIRUBIN, TOTAL PRESENCE IN URINE Negative Normal Negative [facility] Comment on above: Order Comment: Micro scopics not performed on urines with negative chemical reactions unless requested on original order. Performed By: #### L [id number] ####[facility] ([facility])[address] [place] [address] Clarity (U) Clear Normal Clear [facility] Comment on above: Order Comment: Micro scopics not performed on urines with negative chemical reactions unless requested on original order. Performed By: #### L [id number] ####[facility] ([facility])[address] [place] [address] Color (U) Yellow Normal Colorless, Yellow, Light-Yellow [facility] Comment on above: Order Comment: Micro scopics not performed on urines with negative chemical reactions unless requested on original order. Performed By: #### L [id number] ####[facility] ([facility])[address] [place] [address] GLUCOSE (MG/DL) IN URINE Normal Normal Normal [facility] Comment on above: Order Comment: Micro scopics not performed on urines with negative chemical reactions unless requested on original order. Performed By: #### L [id number] ####[facility] (BEAKER)[address] [place] [address] HEMOGLOBIN PRESENCE IN URINE Negative Normal Negative [facility] Comment on above: Order Comment: Micro scopics not performed on urines with negative chemical reactions unless requested on original order. Performed By: #### L [id number] ####[facility] [place] [address] Ketones Ql (U) Negative Normal Negative [facility] Comment on above: Order Comment: Micro scopics not performed on urines with negative chemical reactions unless requested on original order. Performed By: #### L [id number] ####[facility] ([facility])[address] [place] [address] LEUKOCYTE ESTERASE PRESENCE IN URINE BY TEST STRIP Negative Normal Negative [facility] Comment on above: Order Comment: Micro scopics not performed on urines with negative chemical reactions unless requested on original order. Performed By: #### L [id number] ####[facility] ([facility])[address] [place] [address] NITRITE PRESENCE IN URINE Negative Normal Negative [facility] Comment on above: Order Comment: Micro scopics not performed on urines with negative chemical reactions unless requested on original order. Performed By: #### L [id number] ####[facility] ([facility])[address] [place] [address] pH (U) 6.0 [pH] Normal 5.0-8.0 [facility] Comment on above: Order Comment: Micro scopics not performed on urines with negative chemical reactions unless requested on original order. Performed By: #### L [id number] ####[facility] ([facility])[address] [place] [address] Protein (U) [Mass/Vol] Negative Normal Negative [facility] Comment on above: Order Comment: Micro scopics not performed on urines with negative chemical reactions unless requested on original order. Performed By: #### L [id number] ####[facility] [place] [address] Specific gravity (U) [Rel density] 1.050 High 1.010-1.030 [facility] Comment on above: Order Comment: Micro scopics not performed on urines with negative chemical reactions unless requested on original order. Performed By: #### L [id number] ####[facility] ([facility])[address] [place] [address] UROBILINOGEN (MG/DL) IN URINE Normal Normal Normal [facility] Comment on above: Order Comment: Micro scopics not performed on urines with negative chemical reactions unless requested on original order. Performed By: #### L [id number] ####[facility] ([facility])[address] [place] [address] VITAMIN D 25 HYDROXYon 09-23 CALCIDIOL (25 [place] VITAMIN D3) (NG/ML) IN SER/PLAS 42.6 ng/mL Normal 30.0-80.0 [facility] Comment on above: Result Comment: >80. 0 Toxicity possible Performed By: #### L [id number] #### [facility] ([facility]) [address] [place] [address] Superficial Wound Cultureon 09-21-2024 Superficial Wound Culture [...] RESISTANT TO ALL B-LACTAM DRUGS. PERFORMED BY: [id number] PATHOLOGIST HOSPICE NURSE PRACTITIONER STEVE ANGEL M.D. Normal [facility] Comment on above: Performed By: #### C USUP #### [address] [address] [place] Clif 01-03-2024 L Specimen: [id number] Received: 01/03/24 Status: GIAToni Prince Num: [id number] Spec Type: Surgical Subm Dr: Trey Vallejo DPM, [place] Tissues: A Bone Fragments - Pathologic Fracture (PROXIMAL PHALANX RIGHT HALLU) Procedures: HE/2, Gross/Micro L5, Decalcification Age/ Patient Sex Location Account Attending Physician MiliMatty Toni 53/M LABELL [id number] Trey Vallejo DPM, [place] SPEC NUM: [id number] RECD: 01/03/24 STATUS: GIOVANNI PRINCE NUM: [id number] SOFY: 01/03/[address]: Trey Vallejo DPM, [place] ENTERED: 01/03/[address] [facility] DR: Toño,Ayesha SPEC TYPE: Surgical DEPT: [...] Sectioning reveals unremarkable yellow, spongy bone matrix. Accountant Auditor sections are submitted in A1 following decal. Clinical history: Non-pressure chronic ulcer . Right hallux IPJ arthroplasty with wound debridement and graft application TW ---- Specimen: [id number] Received: 01/03/24 Status: GIOVANNI Prince Num: [id number] Spec Type: Surgical Subm Dr: Trey Vallejo,[place], [place] Tissues: A Bone Fragments - Pathologic Fracture (PROXIMAL PHALANX RIGHT HALLU) Procedures: HE/2, Gross/Micro L5, Decalcification ---- Patient: Matty Garces [id number] (Continued) ---- Specimen: [id number] Received: 01/03/24 (Continued) Signed (signature on file) Viral Rae MD 01/06/24 1838 ---- Specimen: [id number] Received: 01/03/24 Status: GIOVANNI Prince Num: [id number] Spec Type: Surgical Subm Dr: Trey Vallejo DPM, [place] Tissues: A Bone Fragments - Pathologic Fracture (PROXIMAL PHALANX RIGHT HALLU) Procedures: HE/2, Gross/Micro L5, Decalcification ---- Patient: Matty Garces Toni [id number] (Continued) ---- Specimen: [id number] Received: 01/03/24 (Continued) CPT Codes 52263 ---- ---- Specimen: [id number] Received: 01/03/24 Status: GIOVANNI Prince Num: [id number] Spec Type: Surgical Subm Dr: Trey Vallejo DPM, [place] Tissues: A Bone Fragments - Pathologic Fracture (PROXIMAL PHALANX RIGHT HALLU) Procedures: HE/2, Gross/Micro L5, Decalcification ---- Patient: Matty Garces [id number] (Continued) ---- Signed (signature on file) Viral Rae MD 01/06/24 1838 Normal [facility] CT CSPINE WO CONon CT CSPINE WO CON EXAM: CT MORGAN WO C ON 12/06/2022 5:22 AM EDT [...] by: ANGEL JORDAN Date: 2022-12-06 06:37 Normal [facility] CT FACIAL BONES WO CONon CT [...] ANGEL SAID Date: 2022-12-06 06:41 Normal [facility] CT HEAD WO CONon 12-06-2022 CT HEAD [...] ANGEL JORDAN Date: 2022-12-06 06:39 Normal [facility] XR ELBOW RT MIN 3 VIEWSon XR ELBOW RT MIN 3 VIEWS Exam: Radiographs: XR ELBOW RT MIN 3 VIEWS Reason for exam: Elbow pain Comparison: None IMPRESSION: Right elbow degenerative changes. Olecranon spur. Remainder of the right elbow is unremarkable. Electronically authenticated by: MICHAEL CASANOVA Date: 2022-12-06 07:22 Normal [facility] XR FOREARM RT 2Von 3 XR FOREARM RT 2V Exam: Radiographs: X R FOREARM RT 2V Reason for exam: Forearm pain Comparison: None IMPRESSION: Mild degenerative changes in the right elbow and wrist. Right forearm is otherwise unremarkable. Electronically authenticated by: MICHAEL CASANOVA Date: 2022-12-06 08:07 Normal [facility] PSA, FREE AND TOTAL RATIOon 12-03-2022 % Free PSA 9.0 % Normal [facility] Comment on above: Result Comment: The [...] men. Performed By: #### P SAFREE #### [facility] [address] [place] [address] Dr. Shabnam Rae Prostate specific Ag [Mass/Vol] 5.9 ng/mL Critically high 0.0-4.0 [facility] Comment on above: Result Comment: Roch e ECLIA methodology. . According to the [place] [employer], Serum PSA should decrease and [...] disease. Performed By: #### P SAFREE #### [facility] [address] [place] [address] Dr. Shabnam Rae PSA, Free 0.53 ng/mL Normal N/A [facility] Comment on above: Result Comment: [place] e ECLIA methodology. Performed By: #### P SAFREE #### [facility] [address] [place] [address] Dr. Shabnam Rae INSULINon 12-02-2022 Insulin 20.2 uIU/mL Normal 2.6-24.9 [facility] Comment on above: Performed By: #### P SASC #### [facility] [address] [place] [address] Dr. Shabnam Rae TESTOSTERONE, TOTALon 2022 Testosterone [Mass/Vol] 256 ng/dL Critically low 264-916 [facility] Comment on above: Result Comment: Adul t male reference interval is based on a population of healthy nonobese males (BMI <30) between 19 and 39 years old. adia Ch.al. JCEM 2017,102;6058-3998. PMID: [id number]. Performed By: #### P SASC #### [facility] [address] [address] [address] Shabnam Rae CBC AUTO DIFFon 12-01-2022 BASO # 0.1 103/ul Normal 0.0-0.1 [facility] Comment on above: Performed By: #### P SASC #### [facility] [address] [address] [address] Shabnam Rae Basophils/100 WBC (Bld) 1.0 % Normal 0.2-2.0 [facility] Comment on above: Performed By: #### P SASC #### [facility] [address] [address] [address] Shabnam Rae EO # 0.1 103/ul Normal 0.0-0.7 [facility] Comment on above: Performed By: #### P SASC #### [facility] [address] [address] [address] Shabnam Rae Eosinophils/100 WBC (Bld) 1.8 % Normal 0.9-7.0 [facility] Comment on above: Performed By: #### P SASC #### [facility] [address] [address] [address] Shabnam Rae Erythrocyte distribution width (RBC) [Ratio] 14.8 % Normal 11.0-15.0 [facility] Comment on above: Performed By: #### P SASC #### [facility] [address] [place] [address] Dr. Shabnam Rae Hematocrit (Bld) [Volume fraction] 49.9 % Normal 42.0-54.0 [facility] Comment on above: Performed By: #### P SASC #### [facility] [address] [address] [address] Shabnam Rae Hemoglobin (Bld) [Mass/Vol] 16.0 g/dL Normal 14.0-18.0 [facility] Comment on above: Performed By: #### P SASC #### [facility] [address] [address] [address] Shabnam Rae IG # 0.04 10e3/ul Critically high 0.00-0.03 [facility] Comment on above: Performed By: #### P SASC #### [facility] [address] [address] [address] Shabnam Rae IG % 0.6 % Critically high 0.0-0.5 [facility] Comment on above: Performed By: #### P SASC #### [facility] [address] [place] [address] Dr. Shabnam Rae LYMPH # 1.0 103/ul Critically low 1.2-3.[address] [facility] Comment on above: Performed By: #### P SASC #### [facility] [address] [place] [address] Dr. Shabnam Rae Lymphocytes/100 WBC (Bld) 16.2 % Critically low 20.5-60.0 [facility] Comment on above: Performed By: #### P SASC #### [facility] [address] [place] [address] Dr. Shabnam Rae MANUAL DIFF REQ NO Normal [facility] Comment on above: Performed By: #### P SASC #### [facility] [address] [address] [address] Shabnam Rae MCH (RBC) [Entitic mass] 27.7 pg Normal 25.9-34.0 [facility] Comment on above: Performed By: #### P SASC #### [facility] [address] [place] [address] Dr. Shabnam Rae MCHC (RBC) [Mass/Vol] 32.1 g/dL Normal 29.9-35.2 [facility] Comment on above: Performed By: #### P SASC #### [facility] [address] [address] [address] Shabnam Rae MCV (RBC) [Entitic vol] 86.3 fL Normal 80.0-94.0 [facility] Comment on above: Performed By: #### P SASC #### [facility] [address] [address] [address] Shabnam Rae MONO # 0.5 103/ul Normal 0.3-0.8 [facility] Comment on above: Performed By: #### P SASC #### [facility] [address] [address] [address] Shabnam Rae Monocytes/100 WBC (Bld) 7.6 % Normal 1.7-12.0 [facility] Comment on above: Performed By: #### P SASC #### [facility] [address] [place] [address] Dr. Shabnam Rae NEUT # 4.6 103/ul Normal 1.4-6.5 [facility] Comment on above: Performed By: #### P SASC #### [facility] [address] [place] [address] Dr. Shabnam Rae Neutrophils/100 WBC (Bld) 72.8 % Normal 43.0-75.0 [facility] Comment on above: Performed By: #### P SASC #### [facility] [address] [place] [address] Dr. Shabnam Rae Platelet mean volume (Bld) [Entitic vol] 9.8 fL Normal 9.5-13.5 [facility] Comment on above: Performed By: #### P SASC #### [facility] [address] [place] [address] Dr. Shabnam Rae PLT 203 103/ul Normal 150-450 [facility] Comment on above: Performed By: #### P SASC #### [facility] [address] [place] [address] Dr. Shabnam Rae RBC 5.78 106/ul Normal 4.70-6.10 [facility] Comment on above: Performed By: #### P SASC #### [facility] [address] [address] [address] Shabnam Rae WBC 6.3 103/ul Normal 4.0-11.0 [facility] Comment on above: Performed By: #### P SASC #### [facility] [address] [address] [address] Shabnam Rae FREE THYROXINE INDEX T7on FTI 2.05 Normal 1.30-4.50 [facility] Comment on above: Performed By: #### T SH, CMP, LIPID, T7, URIC #### [facility] [facility] [address] [address] [address] Shabnam Rae T3U 33.0 % Normal 33.0-40.0 [facility] Comment on above: Performed By: #### T SH, CMP, LIPID, T7, URIC #### [facility] [address] [place] [address] Dr. Shabnam Rae T4 [Mass/Vol] 6.20 ug/dL Normal 4.50-12.10 The [facility] Comment on above: Performed By: #### T SH, CMP, LIPID, T7, URIC #### [facility] [address] [address] [address] Shabnam Rae GLYCOHEMOGLOBIN A1Con 2022 ADA RECOMMENDATION SEE BELOW Normal The [facility] Comment on above: Result Comment: ADA RECOMMENDED LIMIT 4.0 - 6.0 ADA THERAPEUTIC TARGET < 7.0 ACTION SUGGESTED > 7.0 Performed By: #### P SASC #### [facility] [address] [address] [address] Shabnam Rae Glucose [Mass/Vol] 114 mg/dL Normal [facility] Comment on above: Performed By: #### P SASC #### [facility] [address] [place] [address] Dr. Shabnam Rae HbA1c (Bld) [Mass fraction] 5.6 % Normal 4.5-6.2 [facility] Comment on above: Performed By: #### P SASC #### [facility] [address] [place] [address] Dr. Shabnam Rae LIPID PROFILEon 12-01-2022 CHOL-HDL RATIO NORM SEE BELOW Normal [facility] Comment on above: Result Comment: 3.3 - 4.4 LOW RISK 4.4 - 7.1 AVERAGE RISK 7.1 - 11.0 MODERATE RISK >11.0 HIGH RISK Performed By: #### T SH, CMP, LIPID, T7, URIC #### [facility] [address] [place] [address] Dr. Shabnam Rae Cholesterol [Mass/Vol] 176 mg/dL Normal <=200 [facility] Comment on above: Performed By: #### T SH, CMP, LIPID, T7, URIC #### [facility] [address] [address] [address] Shabnam Rae Cholesterol in HDL [Mass/Vol] 48 mg/dL Normal 40-60 [facility] Comment on above: Performed By: #### T SH, CMP, LIPID, T7, URIC #### [facility] [address] [place] [address] Dr. Shabnam Rae Cholesterol in LDL [Mass/Vol] 108.2 mg/dL Normal [facility] Comment on above: Performed By: #### T SH, CMP, LIPID, T7, URIC #### [facility] [address] [address] [address] Shabnam Rae Cholesterol.total/Ch olesterol in HDL [Mass ratio] 3.7 {ratio} Normal [facility] Comment on above: Performed By: #### T SH, CMP, LIPID, T7, URIC #### [facility] [address] [address] [address] Shabnam Rae HDL NORMAL > or = 60 mg/dl - LO W CARDIOVASCULAR RISK <40 mg/dl - HIGH CARDIOVASCULAR RISK Normal [facility] Comment on above: Performed By: #### T SH, CMP, LIPID, T7, URIC #### [facility] [address] [place] [address] Dr. Shabnam Rae LDL CALC NORMAL SEE BELOW Normal [facility] Comment on above: Result Comment: <100 mg/dl OPTIMAL 100 - 129 mg/dl NEAR OR ABOVE OPTIMAL 130 - 159 mg/dl BORDERLINE HIGH 160 - 189 mg/dl HIGH >190 mg/dl VERY HIGH Performed By: #### T SH, CMP, LIPID, T7, URIC #### [facility] [address] [address] [address] Shabnam Rae Triglyceride [Mass/Vol] 99 mg/dL Normal <=150 [facility] Comment on above: Performed By: #### T SH, CMP, LIPID, T7, URIC #### [facility] [address] [address] [address] Shabnam Rae VLDL CALC 19.8 mg/dL Normal [facility] Comment on above: Performed By: #### T SH, CMP, LIPID, T7, URIC #### [facility] [address] [address] [address] Shabnam Rae PROF 14(COMP METB)on 023 Albumin [Mass/Vol] 4.1 g/dL Normal 3.4-5.0 [facility] Comment on above: Performed By: #### T SH, CMP, LIPID, T7, URIC #### [facility] [address] [place] [address] Dr. Shabnam Rae Albumin/Globulin [Mass ratio] 1.1 {ratio} Normal [facility] Comment on above: Performed By: #### T SH, CMP, LIPID, T7, URIC #### [facility] [address] [place] [address] Dr. Shabnam Rae ALP [Catalytic activity/Vol] 101 U/L Normal 46-116 [facility] Comment on above: Performed By: #### T SH, CMP, LIPID, T7, URIC #### [facility] [address] [place] [address] Dr. Shabnam Rae ALT [Catalytic activity/Vol] 26 U/L Normal 16-63 [facility] Comment on above: Performed By: #### T SH, CMP, LIPID, T7, URIC #### [facility] [address] [place] [address] Dr. Shabnam Rae Anion gap [Moles/Vol] 10.1 mmol/L Normal [facility] Comment on above: Performed By: #### T SH, CMP, LIPID, T7, URIC #### [facility] [address] [address] [address] Shabnam Rae AST [Catalytic activity/Vol] 19 U/L Normal 15-37 [facility] Comment on above: Performed By: #### T SH, CMP, LIPID, T7, URIC #### [facility] [address] [address] [address] Shabnam Rae Bilirubin [Mass/Vol] 0.8 mg/dL Normal 0.2-1.0 [facility] Comment on above: Performed By: #### T SH, CMP, LIPID, T7, URIC #### [facility] [address] [address] [address] Shabnam Rae Calcium [Mass/Vol] 9.5 mg/dL Normal 8.5-10.1 [facility] Comment on above: Performed By: #### T SH, CMP, LIPID, T7, URIC #### [facility] [address] [place] [address] Dr. Shabnam Rae Chloride [Moles/Vol] 102 mmol/L Normal 98-107 [facility] Comment on above: Performed By: #### T SH, CMP, LIPID, T7, URIC #### [facility] [address] [address] [address] Shabnam Rae CO2 [Moles/Vol] 32.4 mmol/L Critically high 21.0-32.0 [facility] Comment on above: Performed By: #### T SH, CMP, LIPID, T7, URIC #### [facility] [address] [place] [address] Dr. Shabnam Rae Creatinine [Mass/Vol] 1.00 mg/dL Normal 0.70-1.30 [facility] Comment on above: Performed By: #### T SH, CMP, LIPID, T7, URIC #### [facility] [address] [place] [address] Dr. Shabnam Rae EGFR-AF SURINAMESE >60 Normal >=60 [facility] Comment on above: Performed By: #### T SH, CMP, LIPID, T7, URIC #### [facility] [address] [place] [address] Dr. Shabnam Rae EGFR-NON AF SURINAMESE >60 Normal >=60 The [facility] Comment on above: Performed By: #### T SH, CMP, LIPID, T7, URIC #### [facility] [address] [address] [address] Shabnam Rae Globulin (S) [Mass/Vol] 3.8 g/dL Normal [facility] Comment on above: Performed By: #### T SH, CMP, LIPID, T7, URIC #### [facility] [address] [address] [address] Shabnam Rae Glucose [Mass/Vol] 94 mg/dL Normal 74-[address] [facility] Comment on above: Performed By: #### T SH, CMP, LIPID, T7, URIC #### [facility] [address] [place] [address] Dr. Shabnam Rae Potassium [Moles/Vol] 3.5 mmol/L Normal 3.5-5.1 [facility] Comment on above: Performed By: #### T SH, CMP, LIPID, T7, URIC #### [facility] [address] [place] [address] Dr. Shabnam Rae Protein [Mass/Vol] 7.9 g/dL Normal 6.4-8.[address] [facility] Comment on above: Performed By: #### T SH, CMP, LIPID, T7, URIC #### [facility] [address] [place] [address] Dr. Shabnam Rae Sodium [Moles/Vol] 141 mmol/L Normal 136-[address] [facility] Comment on above: Performed By: #### T SH, CMP, LIPID, T7, URIC #### [facility] [address] [place] [address] Dr. Shabnam Rae Urea nitrogen [Mass/Vol] 15.0 mg/dL Normal 7.0-18.0 [facility] Comment on above: Performed By: #### T SH, CMP, LIPID, T7, URIC #### [facility] [address] [place] [address] Dr. Shabnam Rae Urea nitrogen/Creatinine [Mass ratio] 15.0 mg/mg Normal [facility] Comment on above: Performed By: #### T SH, CMP, LIPID, T7, URIC #### [facility] [address] [address] [address] Shabnam Rae TSHon 12-01-2022 TSH 1.504 uIU/mL Normal 0.358-3.740 [facility] Comment on above: Performed By: #### T SH, CMP, LIPID, T7, URIC #### [facility] [address] [address] [address] Shabnam Rae URIC ACID SERUMon 12-01-2022 Urate [Mass/Vol] 6.9 mg/dL Normal 3.5-7.2 [facility] Comment on above: Performed By: #### T SH, CMP, LIPID, T7, URIC #### [facility] [address] [place] [address] Dr. Shabnam Rae TESTOSTERONE, TOTALon 2021 Testosterone [Mass/Vol] 244 ng/dL Critically low 264-916 [facility] Comment on above: Result Comment: Adul t male reference interval is based on a population of healthy nonobese males (BMI <30) between 19 and 39 years old. Travison, et.al. JCEM 2017,102;4566-9702. PMID: [id number]. Performed By: #### P SAFREE #### [facility] [address] [place] [address] Dr. Shabnam Rae TESTOSTERONE, FREE,DIRECT, T OTALon 03-16-2022 Free Testosterone(Direct) 2.1 pg/mL Critically low 7.2-24.0 [facility] Comment on above: Result Comment: Perf ormed at: BN Performed By: #### C VDTBH #### [facility] [address] [place] [address] Dr. Shabnam Rae Testosterone [Mass/Vol] 252 ng/dL Critically low 264-916 [facility] Comment on above: Result Comment: Adul t male reference interval is based on a population of healthy nonobese males (BMI <30) between 19 and 39 years old. Travison, et.al. JCEM 2017,102;2505-6466. PMID: [id number]. Performed at: CB Performed By: #### C [facility] #### [facility] [id number] Shabnam Rae Formson 02-26-2022 Forms [id number]. 00CD:127 Normal [facility] Screenson 02-26-2022 Screens [id number]#1. 00CD:127 Normal [facility] Screens [id number] 0CD:127 Normal [facility] Urology Office/Clinic Noteon 02-26-2022 Urology [...] qualifying data (more content not included)... Normal [facility] Comment on above: Result [...] Urnls Dip Stick Auto w/o Microscopy POC 64828 Your Care Team Attending Physician - Viola [...] Urnls Dip Stick Auto w/o Microscopy POC 56403 (02/25/2022) Bilirubin Urine Dipstick - Negative Blood Urine Dipstick - Negative Glucose Urine Dipstick - Negative Ketones Urine Dipstick - Negative Leukocytes Urine Dipstick - Negative Nitrite Urine Dipstick - Negative Protein Urine Dipstick - Negative Specific [place] Urine Dipstick - >=1.030 Urine Appearance Urine [...] the hydrocele for any changes. ? Take wyfh-xpz-ufhkiou and prescription medicines only as told by [...] intended t (more content not included)... Normal [facility] Patient Educationon 02-26-20 Patient Education [...] the hydrocele for any changes. ? Take hffm-cyt-ytqoiry and prescription medicines only as told by [...] 02/17/2011 Document Revised: 09/10/2018 Document Reviewed: 09/10/2018 [employer] Patient Education ? [address] [employer] [facility] ED Note-Physicianon 02-04-20 ED Note-Physician [id number] .00CD:127 [facility] RAD - Ultrasound Reporton RAD - Ultrasound Report [id number] 0CD:127 [facility] RAD - CT Reporton 02-02-2022 RAD - CT Report [id number] .00CD:127 Normal [facility] RAD - CT Report [id number] .00CD:127 Normal [facility] CBC AUTO DIFFon 01-05-2022 BASO # 0.0 103/ul Normal 0.0-0.1 [facility] Comment on above: Performed By: #### P SAFREE #### [facility] [address] [address] [address] Shabnam Rae Basophils/100 WBC (Bld) 0.6 % Normal 0.2-2.0 [facility] Comment on above: Performed By: #### P SAFREE #### [facility] [address] [place] [address] Dr. Shabnam Rae EO # 0.1 103/ul Normal 0.0-0.7 [facility] Comment on above: Performed By: #### P SAFREE #### [facility] [address] [address] [address] Shabnam Rae Eosinophils/100 WBC (Bld) 2.1 % Normal 0.9-7.0 [facility] Comment on above: Performed By: #### P SAFREE #### [facility] [address] [address] [address] Shabnam Rae Erythrocyte distribution width (RBC) [Ratio] 13.1 % Normal 11.0-15.0 [facility] Comment on above: Performed By: #### P SAFREE #### [facility] [address] [place] [address] Dr. Shabnam Rae Hematocrit (Bld) [Volume fraction] 43.1 % Normal 42.0-54.0 [facility] Comment on above: Performed By: #### P SAFREE #### [facility] [address] [place] [address] Dr. Shabnam Rae Hemoglobin (Bld) [Mass/Vol] 13.7 g/dL Critically low 14.0-18.0 [facility] Comment on above: Performed By: #### P SAFREE #### [facility] [address] [address] [address] Shabnam Rae IG # 0.04 10e3/ul Critically high 0.00-0.03 [facility] Comment on above: Performed By: #### P SAFREE #### [facility] [address] [address] [address] Shabnam Rae IG % 0.6 % Critically high 0.0-0.5 [facility] Comment on above: Performed By: #### P SAFREE #### [facility] [address] [address] [address] Shabnam Rae LYMPH # 0.9 103/ul Critically low 1.2-3.8 [facility] Comment on above: Performed By: #### P SAFREE #### [facility] [address] [place] [address] Dr. Shabnam Rae Lymphocytes/100 WBC (Bld) 13.1 % Critically low 20.5-60.0 [facility] Comment on above: Performed By: #### P SAFREE #### [facility] [address] [address] [address] Shabnam Rae MANUAL DIFF REQ NO Normal [facility] Comment on above: Performed By: #### P SAFREE #### [facility] [address] [address] [address] Shabnam Rae MCH (RBC) [Entitic mass] 29.5 pg Normal 25.9-34.0 [facility] Comment on above: Performed By: #### P SAFREE #### [facility] [address] [address] [address] Shabnam Rae MCHC (RBC) [Mass/Vol] 31.8 g/dL Normal 29.9-35.2 [facility] Comment on above: Performed By: #### P SAFREE #### [facility] [address] [place] [address] Dr. Shabnam Rae MCV (RBC) [Entitic vol] 92.9 fL Normal 80.0-94.0 [facility] Comment on above: Performed By: #### P SAFREE #### [facility] [address] [address] [address] Shabnam Rae MONO # 0.4 103/ul Normal 0.3-0.8 [facility] Comment on above: Performed By: #### P SAFREE #### [facility] [address] [address] [address] Shabnam Rae Monocytes/100 WBC (Bld) 5.4 % Normal 1.7-12.0 [facility] Comment on above: Performed By: #### P SAFREE #### [facility] [address] [address] [address] Shabnam Rae NEUT # 5.2 103/ul Normal 1.4-6.5 [facility] Comment on above: Performed By: #### P SAFREE #### [facility] [address] [address] [address] Shabnam Rae Neutrophils/100 WBC (Bld) 78.2 % Critically high 43.0-75.0 [facility] Comment on above: Performed By: #### P SAFREE #### [facility] [address] [address] [address] Shabnam Rae Platelet mean volume (Bld) [Entitic vol] 10.9 fL Normal 9.5-13.5 [facility] Comment on above: Performed By: #### P SAFREE #### [facility] [address] [address] [address] Shabnam Rae PLT 153 103/ul Normal 150-450 [facility] Comment on above: Performed By: #### P SAFREE #### [facility] [address] [address] [address] Shabnam Rae RBC 4.64 106/ul Critically low 4.70-6.10 [facility] Comment on above: Performed By: #### P SAFREE #### [facility] [address] [address] [address] Shabnam Rae WBC 6.6 103/ul Normal 4.0-11.0 [facility] Comment on above: Performed By: #### P SAFREE #### [facility] [address] [place] [address] Dr. Shabnam Rae CRPon 01-05-2022 CRP 0.9 mg/dL Normal <=1.0 [facility] Comment on above: Performed By: #### P SAFREE #### [facility] [address] [place] [address] Dr. Shabnam Rae PROF 14(COMP METB)on 022 Albumin [Mass/Vol] 3.6 g/dL Normal 3.4-5.0 [facility] Comment on above: Performed By: #### P SAFREE #### [facility] [address] [place] [address] Dr. Shabnam Rae Albumin/Globulin [Mass ratio] 1.0 {ratio} Normal [facility] Comment on above: Performed By: #### P SAFREE #### [facility] [address] [place] [address] Dr. Shabnam Rae ALP [Catalytic activity/Vol] 114 U/L Normal 46-116 [facility] Comment on above: Performed By: #### P SAFREE #### [facility] [address] [place] [address] Dr. Shabnam Rae ALT [Catalytic activity/Vol] 26 U/L Normal 16-63 [facility] Comment on above: Performed By: #### P SAFREE #### [facility] [address] [place] [address] Dr. Shabnam Rae Anion gap [Moles/Vol] 9.3 mmol/L Normal [facility] Comment on above: Performed By: #### P SAFREE #### [facility] [address] [place] [address] Dr. Shabnam Rae AST [Catalytic activity/Vol] 19 U/L Normal 15-37 [facility] Comment on above: Performed By: #### P SAFREE #### [facility] [address] [place] [address] Dr. Shabnam Rae Bilirubin [Mass/Vol] 0.5 mg/dL Normal 0.2-1.0 [facility] Comment on above: Performed By: #### P SAFREE #### [facility] [address] [address] [address] Shabnam Rae Calcium [Mass/Vol] 8.9 mg/dL Normal 8.5-10.1 [facility] Comment on above: Performed By: #### P SAFREE #### [facility] [address] [address] [address] Shabnam Rae Chloride [Moles/Vol] 106 mmol/L Normal 98-107 [facility] Comment on above: Performed By: #### P SAFREE #### [facility] [address] [address] [address] Shabnam Rae CO2 [Moles/Vol] 30.7 mmol/L Normal 21.0-32.0 [facility] Comment on above: Performed By: #### P SAFREE #### [facility] [address] [address] [address] Shabnam Rae Creatinine [Mass/Vol] 1.15 mg/dL Normal 0.70-1.30 [facility] Comment on above: Performed By: #### P SAFREE #### [facility] [address] [address] [address] Shabnam Rae EGFR-AF SURINAMESE >60 Normal >=60 [facility] Comment on above: Performed By: #### P SAFREE #### [facility] [address] [address] [address] Shabnam Rae EGFR-NON AF SURINAMESE >60 Normal >=60 [facility] Comment on above: Performed By: #### P SAFREE #### [facility] [address] [address] [address] Shabnam Rae Globulin (S) [Mass/Vol] 3.6 g/dL Normal [facility] Comment on above: Performed By: #### P SAFREE #### [facility] [address] [address] [address] Shabnam Rae Glucose [Mass/Vol] 117 mg/dL Critically high 74-106 [facility] Comment on above: Performed By: #### P SAFREE #### [facility] [address] [address] [address] Shabnam Rae Potassium [Moles/Vol] 4.0 mmol/L Normal 3.5-5.1 [facility] Comment on above: Performed By: #### P SAFREE #### [facility] [address] [address] [address] Shabnam Rae Protein [Mass/Vol] 7.2 g/dL Normal 6.1-8.[address] [facility] Comment on above: Performed By: #### P SAFREE #### [facility] [address] [address] [address] Shabnam Rae Sodium [Moles/Vol] 142 mmol/L Normal 136-[address] [facility] Comment on above: Performed By: #### P SAFREE #### [facility] [address] [address] [address] Shabnam Rae Urea nitrogen [Mass/Vol] 15.0 mg/dL Normal 7.0-18.0 [facility] Comment on above: Performed By: #### P SAFREE #### [facility] [address] [address] [address] Shabnam Rae Urea nitrogen/Creatinine [Mass ratio] 13.0 mg/mg Normal [facility] Comment on above: Performed By: #### P SAFREE #### [facility] [address] [place] [address] Dr. Shabnam Rae US SCROTUMon 01-05-2022 [place] [...] ALVINA CAICEDO Date: 2022-01-05 08:48 Normal The [facility] CBC AUTO DIFFon 01-04-2022 BASO # 0.1 103/ul Normal 0.0-0.1 [facility] Comment on above: Performed By: #### C BC #### [facility] Laboratory [address] [place] [address] Dr. Shabnam Rae Basophils/100 WBC (Bld) 0.8 % Normal 0.2-2.0 [facility] Comment on above: Performed By: #### C BC #### [facility] Laboratory [address] [place] [address] Dr. Shabnam Rae EO # 0.1 103/ul Normal 0.0-0.7 [facility] Comment on above: Performed By: #### C BC #### [facility] Laboratory [address] [place] [address] Dr. Shabnam Rae Eosinophils/100 WBC (Bld) 1.5 % Normal 0.9-7.0 [facility] Comment on above: Performed By: #### C BC #### [facility] Laboratory [address] [place] [address] Dr. Shabnam Rae Erythrocyte distribution width (RBC) [Ratio] 12.8 % Normal 11.0-15.0 [facility] Comment on above: Performed By: #### C BC #### [facility] Laboratory [address] [place] [address] Dr. Shabnam Rae Hematocrit (Bld) [Volume fraction] 40.3 % Critically low 42.0-54.0 [facility] Comment on above: Performed By: #### C BC #### [facility] Laboratory [address] [place] [address] Dr. Shabnam Rae Hemoglobin (Bld) [Mass/Vol] 13.4 g/dL Critically low 14.0-18.0 [facility] Comment on above: Performed By: #### C BC #### [facility] Laboratory [address] [place] [address] Dr. Shabnam Rae IG # 0.03 10e3/ul Normal 0.00-0.03 [facility] Comment on above: Performed By: #### C BC #### [facility] Laboratory [address] [place] [address] Dr. Shabnam Rae IG % 0.5 % Normal 0.0-0.5 [facility] Comment on above: Performed By: #### C BC #### [facility] Laboratory [address] [place] [address] Dr. Shabnam Rae LYMPH # 1.0 103/ul Critically low 1.2-3.8 [facility] Comment on above: Performed By: #### C BC #### [facility] Laboratory [address] [place] [address] Dr. Shabnam Rae Lymphocytes/100 WBC (Bld) 16.4 % Critically low 20.5-60.0 [facility] Comment on above: Performed By: #### C BC #### [facility] Laboratory [address] [place] [address] Dr. Shabnam Rae MANUAL DIFF REQ NO Normal [facility] Comment on above: Performed By: #### C BC #### [facility] Laboratory [address] [place] [address] Dr. Shabnam Rae MCH (RBC) [Entitic mass] 29.5 pg Normal 25.9-34.0 [facility] Comment on above: Performed By: #### C BC #### [facility] Laboratory [address] [place] [address] Dr. Shabnam Rae MCHC (RBC) [Mass/Vol] 33.3 g/dL Normal 29.9-35.2 [facility] Comment on above: Performed By: #### C BC #### [facility] Laboratory [address] [address] [address] Shabnam Rae MCV (RBC) [Entitic vol] 88.8 fL Normal 80.0-94.0 [facility] Comment on above: Performed By: #### C BC #### [facility] Laboratory [id number] Shabnam Rae MONO # 0.6 103/ul Normal 0.3-0.8 [facility] Comment on above: Performed By: #### C BC #### [facility] Laboratory [address] [address] [address] Shabnam Rae Monocytes/100 WBC (Bld) 9.6 % Normal 1.7-12.0 [facility] Comment on above: Performed By: #### C BC #### [facility] Laboratory [address] [address] [address] Shabnam Rae NEUT # 4.4 103/ul Normal 1.4-6.5 [facility] Comment on above: Performed By: #### C BC #### [facility] Laboratory [address] [address] [address] Shabnam Rae Neutrophils/100 WBC (Bld) 71.2 % Normal 43.0-75.0 [facility] Comment on above: Performed By: #### C BC #### [facility] Laboratory [address] [address] [address] Shabnam Rae Platelet mean volume (Bld) [Entitic vol] 10.8 fL Normal 9.5-13.5 [facility] Comment on above: Performed By: #### C BC #### [facility] Laboratory [address] [address] [address] Shabnam Rae PLT 158 103/ul Normal 150-450 [facility] Comment on above: Performed By: #### C BC #### [facility] Laboratory [id number] Shabnam Rae RBC 4.54 106/ul Critically low 4.70-6.10 [facility] Comment on above: Performed By: #### C BC #### [facility] Laboratory [id number] Shabnam Rae WBC 6.2 103/ul Normal 4.0-11.0 [facility] Comment on above: Performed By: #### C #### [facility] Laboratory [address] [place] [address] ABD/PELV W CONon [...] MAYRA BERNAL Date: 2022-01-04 05:19 Normal [facility] CT PELVIS WO CONon 2 CT PELVIS [...] with scrotal ultrasound recommended. Electronically authenticated by: [facility] Date: 2022-01-04 08:54 Normal [facility] CULTURE URINEon 01-04-2022 CULTURE URINE Culture Observations : No growth Normal [facility] Comment on above: Performed By: #### P [facility] #### [facility] Laboratory [address] [place] [address] Dr. Shabnam Rae [facility]-13 SARS-CoV-2 (COVID-19) RNA ELIJAH+probe Ql (Unsp spec) Not detected Normal NOT DETECTED The [facility] Comment on above: Result Comment: When diagnostic testing is negative, the possibility of a false negative should be considered in the context of a patient's recent exposures and the presence of clinical signs and symptoms consistent with SARS-CoV-2. This test is not yet approved or cleared by the [place] Food and Drug Administration (FDA). This test was developed by [employer], [place], [place]. The performance characteristics of this test were validated by The [facility] Laboratory. The results are not intended to be used as the sole means for clinical diagnosis or patient management decisions. The [facility] is authorized under Clinical Laboratory Improvement Amendments [...] for this test is supported by the [employer] of Health and Human Service's [...] used). Performed By: #### C VDTBH #### [facility] Laboratory [address] [place] [address] Dr. Shabnam Rae ER URINE PROFILEon 2 Bilirubin Ql (U) Negative Normal NEGATIVE [facility] Comment on above: Performed By: #### P SASC #### [facility] Laboratory [address] [place] [address] Dr. Shabnam Rae Clarity (U) CLEAR Normal CLEAR [facility] Comment on above: Performed By: #### P SASC #### [facility] Laboratory [address] [place] [address] Dr. Shabnam Rae Color (U) YELLOW Normal YELLOW [facility] Comment on above: Performed By: #### P SASC #### [facility] Laboratory [address] [place] [address] Dr. Shabnam Rae ERUAHD A micrscopic examination will be performed if indicated. Normal [facility] Comment on above: Performed By: #### P SASC #### [facility] Laboratory [address] [address] [address] Shabnam Rae Glucose Ql (U) Negative Normal NEGATIVE [facility] Comment on above: Performed By: #### P SASC #### [facility] Laboratory [address] [address] [address] Shabnam Rae Hemoglobin Ql (U) Negative Normal NEGATIVE [facility] Comment on above: Performed By: #### P SASC #### [facility] Laboratory [address] [address] [address] Shabnam Rae Ketones Ql (U) Negative Normal NEGATIVE [facility] Comment on above: Performed By: #### P SASC #### [facility] Laboratory [address] [place] [address] Dr. Shabnam Rae LEUKOCYTES Negative Normal NEGATIVE [facility] Comment on above: Performed By: #### P SASC #### [facility] [address] [address] [address] Shabnam Rae Nitrite Ql (U) Negative Normal NEGATIVE [facility] Comment on above: Performed By: #### P SASC #### [facility] Laboratory [address] [address] [address] Shabnam Rae pH (U) 6.5 [pH] Normal 5-9 [facility] Comment on above: Performed By: #### P SASC #### [facility] Laboratory [address] [address] [address] Shabnam Rae SPEC GRAVITY 1.010 Normal 1.005-<=1.025 [facility] Comment on above: Performed By: #### P SASC #### [facility] Laboratory [address] [address] [address] Shabnam Rae UA PROTEIN Negative Normal NEGATIVE/ TRACE [facility] Comment on above: Performed By: #### P SASC #### [facility] Laboratory [address] [place] [address] Dr. Shabnam Rae UR MICRO IND NOT INDICATED Normal [facility] Comment on above: Performed By: #### P SASC #### [facility] Laboratory [address] [place] [address] Dr. Shabnam Rae Urobilinogen Qn (U) 0.2 {Sarai'U}/dL Normal 0.2 - 1. 0 [facility] Comment on above: Performed By: #### P SASC #### [facility] Laboratory [address] [place] [address] Dr. Shabnam Rae LACTATE/LACTIC ACIDon 2021 Lactate [Moles/Vol] 1.0 mmol/L Normal 0.4-2.0 [facility] Comment on above: Performed By: #### P SASC #### [facility] Laboratory [address] [place] [address] Dr. Shabnam Rae PROF CHEM 8 (BAS METB)on Anion gap [Moles/Vol] 10.0 mmol/L Normal [facility] Comment on above: Performed By: #### B MP #### [facility] Laboratory [address] [place] [address] Dr. Shabnam Rae Calcium [Mass/Vol] 8.5 mg/dL Normal 8.5-10.1 [facility] Comment on above: Performed By: #### B MP #### [facility] Laboratory [address] [place] [address] Dr. Shabnam Rae Chloride [Moles/Vol] 103 mmol/L Normal 98-107 [facility] Comment on above: Performed By: #### B MP #### [facility] Laboratory [address] [place] [address] Dr. Shabnam Rae CO2 [Moles/Vol] 29.2 mmol/L Normal 21.0-32.0 [facility] Comment on above: Performed By: #### B MP #### [facility] Laboratory [address] [place] [address] Dr. Shabnam Rae Creatinine [Mass/Vol] 1.25 mg/dL Normal 0.70-1.30 [facility] Comment on above: Performed By: #### B MP #### [facility] Laboratory [address] [place] [address] Dr. Shabnam Rae EGFR-AF SURINAMESE >60 Normal >=60 [facility] Comment on above: Performed By: #### B MP #### [facility] Laboratory [address] [address] [address] Shabnam Rae EGFR-NON AF SURINAMESE >60 Normal >=60 [facility] Comment on above: Performed By: #### B MP #### [facility] Laboratory [address] [address] [address] Shabnam Rae Glucose [Mass/Vol] 132 mg/dL Critically high 74-106 [facility] Comment on above: Performed By: #### B MP #### [facility] Laboratory [address] [address] [address] Shabnam Rae Potassium [Moles/Vol] 3.2 mmol/L Critically low 3.5-5.1 [facility] Comment on above: Performed By: #### B MP #### [facility] Laboratory [address] [address] [address] Shabnam Rae Sodium [Moles/Vol] 139 mmol/L Normal 136-145 [facility] Comment on above: Performed By: #### B MP #### [facility] Laboratory [address] [address] [address] Shabnam Rae Urea nitrogen [Mass/Vol] 19.0 mg/dL Critically high 7.0-18.0 [facility] Comment on above: Performed By: #### B MP #### [facility] Laboratory [address] [address] [address] Shabnam Rae Urea nitrogen/Creatinine [Mass ratio] 15.2 mg/mg Normal [facility] Comment on above: Performed By: #### B MP #### [facility] Laboratory [address] [address] [address] Shabnam Rae CERVICAL SPINE 2 OR 3 [facility] 07-06-2019 CERVICAL SPINE 2 OR 3 [facility] Department of Radiology [address] [place] [id number] ======== Patient Name: MATTY GARCES : 1970 Sex: M Age: Race: White Pt. Location: Patient Status: O Ordered Date: 07/06/2019 9:10:00 AM Completed Date: 07/06/2019 09:21 AM Requesting Provider: LUCIANO DAVIS Attending Provider: LUCIANO DAVIS Report Copy To: VENUS JAEGER Signs & Symptoms: M48.02 Spinal stenosis, cervical region I10 History: [place] Comments: , STAT READ , STAT READ [...] findings. Electronically signed by:Bernice Hoyt. Transcribed by: [email or web address], User Resident: RADHA CHIN Electronically Signed by: BERNICE HOYT @ 07/06/2019 08:52 PM I personally read this/these film(s) with this resident Normal [facility] Comment on above: Order Comment: , STA T READ , STAT READ , , , Ordering Provider - LUCIANO DAVIS MD , CERVICAL SPINE 2 OR 3 [facility] 04-06-2019 CERVICAL SPINE 2 OR 3 [facility] Department of Radiology [address] [place] [id number] ======== Patient Name: MATTY GARCES : [...] FALLS Exam: CERVICAL SPINE 2 OR 3 [facility] ======== CERVICAL SPINE 2 OR 3 S [...] study. Electronically signed by:Bernice Hoyt. Transcribed by: [email or web address], User Resident: Electronically Signed by: BERNICE HOYT @ 04/06/2019 04:40 PM Normal [facility] Comment on above: Order Comment: AP/LA T, ODONTOID PLEASE DO SWIMMER'S VIEW FOLLOW UP HARDWARE AND ALIGNMENT, S/P ACDF, RECENT FALLS CERVICAL SPINE 2 OR 3 [facility] 02-17-2019 CERVICAL SPINE 2 OR 3 [facility] Department of Radiology [address] [place] [id number] ======== Patient Name: MATTY GARCES : [...] findings. Electronically signed by:Bella King. Transcribed by: [email or web address], User Resident: KENNETH DUVAL Electronically Signed by: BELLA KING @ 02/20/2019 11:53 AM I personally read this/these film(s) with this resident Normal [facility] Comment on above: Order Comment: C-SPI NE 2 OR 3 VIEW POSTOP, EVALUATION HARDWARE AN ALIGNMENT BASIC METABOLIC PANELon 05-2 Calcium [Mass/Vol] 9.2 mg/dL Normal 8.6-10.3 [facility] Comment on above: Order Comment: No: D o not add to previous draw Performed By: #### 5 0103 #### [facility] [address] [place] [address], [place] Chloride [Moles/Vol] 101 mmol/L Normal 98-107 [facility] Comment on above: Order Comment: No: D o not add to previous draw Performed By: #### 5 0103 #### [facility] [address] [place] [address], [place] CO2 [Moles/Vol] 26 mmol/L Normal 21-31 [facility] Comment on above: Order Comment: No: D o not add to previous draw Performed By: #### 5 0103 #### [facility] [address] [place] [address], [place] Creatinine [Mass/Vol] 1.02 mg/dL Normal 0.70-1.30 [facility] Comment on above: Order Comment: No: D o not add to previous draw Performed By: #### 5 0103 #### [facility] [address] [place] [address], [place] GFR/1.73 sq M predicted among blacks MDRD (S/P/Bld) [Vol rate/Area] mL/min/{1.73_m2} Normal >60 [facility] Comment on above: Order Comment: No: D o not add to previous draw Performed By: #### 5 0103 #### [facility] [address] [place] [address], [place] GFR/1.73 sq M predicted among non-blacks MDRD (S/P/Bld) [Vol rate/Area] mL/min/{1.73_m2} Normal >60 [facility] Comment on above: Order Comment: No: D o not add to previous draw Performed By: #### 5 0103 #### [facility] [address] [place] [address], [facility] Glucose [Mass/Vol] 124 mg/dL High 70-100 [facility] Comment on above: Order Comment: No: D o not add to previous draw Performed By: #### 5 0103 #### [facility] [address] [place] [address], [facility] Potassium [Moles/Vol] 3.9 mmol/L Normal 3.5-5.1 [facility] Comment on above: Order Comment: No: D o not add to previous draw Performed By: #### 5 0103 #### [facility] [address] [place] [address], [facility] Sodium [Moles/Vol] 137 mmol/L Normal 136-145 [facility] Comment on above: Order Comment: No: D o not add to previous draw Performed By: #### 5 0103 #### [facility] [address] [place] [address], [facility] Urea nitrogen [Mass/Vol] 15 mg/dL Normal 7-25 [facility] Comment on above: Order Comment: No: D o not add to previous draw Performed By: #### 5 0103 #### [facility] [address] [place] [address], [facility] CBC COMPLETE BLOOD COUNTon 0 - Erythrocyte distribution width (RBC) [Ratio] 13.9 % Normal 11.5-15.0 [facility] Comment on above: Order Comment: No: D o not add to previous draw Performed By: #### 5 0103 #### [facility] [address] [place] [address], [facility] Hematocrit (Bld) [Volume fraction] 50.0 % Normal 39.0-50.0 [facility] Comment on above: Order Comment: No: D o not add to previous draw Performed By: #### 5 0103 #### [facility] [address] [place] [address], [facility] Hemoglobin (Bld) [Mass/Vol] 16.0 g/dL Normal 13.0-17.0 [facility] Comment on above: Order Comment: No: D o not add to previous draw Performed By: #### 5 0103 #### [facility] [address] [place] [address], [facility] MCH (RBC) [Entitic mass] 27.5 pg Normal 27.0-33.0 [facility] Comment on above: Order Comment: No: D o not add to previous draw Performed By: #### 5 0103 #### [facility] [address] [place] [address], [facility] MCHC (RBC) [Mass/Vol] 32.0 g/dL Normal 32.0-35.0 [facility] Comment on above: Order Comment: No: D o not add to previous draw Performed By: #### 5 0103 #### [facility] [address] [facility] [place] [address], [facility] MCV (RBC) [Entitic vol] 85.9 fL Normal 82.0-98.0 [facility] Comment on above: Order Comment: No: D o not add to previous draw Performed By: #### 5 0103 #### [facility] [address] [place] [address], [facility] Nucleated RBC/100 WBC (Bld) [Ratio] 0 % Normal 0-0 [facility] Comment on above: Order Comment: No: D o not add to previous draw Performed By: #### 5 0103 #### [facility] [address] [place] [id number], [facility] PLAT CNT 249 10*3/uL Normal 150-400 [facility] Comment on above: Order Comment: No: D o not add to previous draw Performed By: #### 5 0103 #### [facility] [address] [place] [address], [facility] RBC (Bld) [#/Vol] 5.82 10*6/uL High 4.20-5.70 [facility] Comment on above: Order Comment: No: D o not add to previous draw Performed By: #### 5 0103 #### [facility] [address] [place] [id number], [facility] WBC (Bld) [#/Vol] 15.85 10*3/uL High 4.00-10.60 [facility] Comment on above: Order Comment: No: D o not add to previous draw Performed By: #### 5 0103 #### [facility] [address] Operative Reporton 9 Operative Report MR#: [id number] I [facility] Pt. Name: Matty Garces Room #: [id number] Discharge Date: Birthdate: 1970 OPERATIVE REPORT DATE OF SURGERY: 01/30/2019 SURGEON: Luciano Davis M.D. 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 POSTOPERATIVE DIAGNOSIS: Failed instrumentation at C6-7 on the right. DIALYSIS BIOMED TECHNICIAN: ADENIKE Lugo. ANESTHESIA: Endotracheal, Hogan. PROCEDURES: [...] P Luciano Davis M.D. Date Dict: 01/30/2019/04:52 Norma/Luciano Davis M.D. Date Trans: 01/31/2019 02:31 Mark DIXON_JN:[id number] cc: Venus Jaeger M.D. [address], [facility] [phone] [facility] CERVICAL SPINE 2 OR 3 [facility] 01-30-2019 CERVICAL SPINE 2 OR 3 [facility] Department of Radiology [address] [place] [address] ======== Patient Name: MATTY GARCES : 1970 Sex: M Age: Race: White Pt. Location: Patient Status: O Ordered Date: 01/30/2019 7:05:00 AM Completed Date: 01/30/2019 04:12 PM Requesting Provider: LUCIANO DAVIS Attending Provider: LUCIANO DAVIS Report Copy To: Signs & Symptoms: C6-7 ACDF History: C6-7 ACDF Comments: C6-7 ACDF Exam: CERVICAL SPINE 2 OR 3 [facility] ======== CERVICAL SPINE 2 OR 3 [facility] 01/30/2019 4:12 PM EDT SIGNS AND SYMPTOMS: C6-7 ACDF TECHNOLOGIST COMMENTS: Intra op ACDF C6-7 with , 30 sec of fluoro time used QUESTION FOR THE RADIOLOGIST: C6-7 ACDF PROTOCOLS: AP, Odontoid and Lateral views were obtained. COMPARISON: None FINDINGS: 5 images were obtained. Fluoroscopic time as utilized above. IMPRESSION: For documentation Electronically signed by:Justus Murphy. Transcribed by: [email or web address], User Resident: Electronically Signed by: JUSTUS MURPHY @ 01/30/2019 04:18 PM Normal [facility] Comment on above: Order Comment: C6-7 ACDF POC GLUCOSE LABon 01-30-2019 Glucose [Mass/Vol] 106 mg/dL High 70-100 [facility] Comment on above: Performed By: #### 5 0103 #### [facility] [address] [facility] [address] *MRSA/MSSA DNA NASALon 01-23 *MRSA/MSSA DNA NASAL Clinical Report: (D ) Specimen: NASAL SWAB Collected: 01/23/2019 15:02 Status: Final Last Updated: 01/23/2019 20:14 MSSA DNA (Final) Methicillin Susceptible Staphylococcus aureus DNA Detected MRSA DNA (Final) No Methicillin Resistant Staphylococcus aureus DNA Detected Normal [facility] Comment on above: Performed By: #### 5 0103 #### [facility] 3000 [facility]. [address] APTTon 01-23-2019 aPTT Coag (Bld) [Time] 35.4 s High 25.0-35.0 [facility] Comment on above: Result [...] THIS PURPOSE. Performed By: #### 5 7307, 15301 #### [facility] 3000 [facility] [place] [address], [facility] BASIC METABOLIC PANELon 01-11 Calcium [Mass/Vol] 9.5 mg/dL Normal 8.6-10.3 [facility] Comment on above: Performed By: #### 5 7307, 34373 #### [facility] 3000 [facility] [place] [address], [facility] Chloride [Moles/Vol] 101 mmol/L Normal 98-107 [facility] Comment on above: Performed By: #### 5 7307, 84772 #### [facility] [address] [facility] [place] [address], [facility] CO2 [Moles/Vol] 29 mmol/L Normal 21-31 [facility] Comment on above: Performed By: #### 5 7307, 55208 #### [facility] [address] [place] [address], [place] Creatinine [Mass/Vol] 1.08 mg/dL Normal 0.70-1.30 [facility] Comment on above: Performed By: #### 5 7307, 21544 #### [facility] [address] [place] [address], [place] GFR/1.73 sq M predicted among blacks MDRD (S/P/Bld) [Vol rate/Area] mL/min/{1.73_m2} Normal >60 [facility] Comment on above: Performed By: #### 5 7306, 36957 #### [facility] [address] [place] [address], [place] GFR/1.73 sq M predicted among non-blacks MDRD (S/P/Bld) [Vol rate/Area] mL/min/{1.73_m2} Normal >60 [facility] Comment on above: Performed By: #### 5 7307, 80576 #### [facility] [address] [place] [address], [place] Glucose [Mass/Vol] 87 mg/dL Normal 70-100 [facility] Comment on above: Performed By: #### 5 7307, 57580 #### [facility] [address] [place] [address], [place] Potassium [Moles/Vol] 4.0 mmol/L Normal 3.5-5.1 [facility] Comment on above: Performed By: #### 5 7307, 24018 #### [facility] [address] [place] [address], [place] Sodium [Moles/Vol] 137 mmol/L Normal 136-145 [facility] Comment on above: Performed By: #### 5 7307, 62840 #### [facility] [address] [facility] [place] [place] [address], [facility] Urea nitrogen [Mass/Vol] 12 mg/dL Normal 7-25 [facility] Comment on above: Performed By: #### 5 73, 67358 #### [facility] 3000 [facility] [place] [address], [facility] CBC W/DIFFon 01-23-2019 ABS BASOPHILS 0.1 10*3/uL Normal 0.0-0.2 [facility] Comment on above: Performed By: #### 5 Al, 98186 #### [facility] 3000 [facility] [place] [address], [facility] ABS IMM GRANS 0.0 10*3/uL Normal 0.0-0.2 [facility] Comment on above: Performed By: #### 5 73Al, 72498 #### [facility] [address] [facility] [place] [address], [facility] ABS NEUTROPHILS 5.3 10*3/uL Normal 1.6-7.6 [facility] Comment on above: Performed By: #### 5 73Al, 75227 #### [facility] [address] [facility] [place] [address], [facility] Basophils/100 WBC (Bld) 0.9 % Normal 0.0-1.0 [facility] Comment on above: Performed By: #### 5 73Al, 97560 #### [facility] [address] [facility] [place] [address], [facility] Eosinophils (Bld) [#/Vol] 0.2 10*3/uL Normal 0.0-0.5 [facility] Comment on above: Performed By: #### 5 73, 58661 #### [facility] [address] [facility] [place] [address], [facility] Eosinophils/100 WBC (Bld) 2.3 % Normal 0.0-6.0 [facility] Comment on above: Performed By: #### 5 7306, 17049 #### [facility] [address] Erythrocyte distribution width (RBC) [Ratio] 13.8 % Normal 11.5-15.0 [facility] Comment on above: Performed By: #### 5 7306, 77917 #### [facility] [address] [place] [address], [facility] Hematocrit (Bld) [Volume fraction] 49.6 % Normal 39.0-50.0 [facility] Comment on above: Performed By: #### 5 7306, 61071 #### [facility] 3000 [facility]. [address] Hemoglobin (Bld) [Mass/Vol] 16.4 g/dL Normal 13.0-17.0 [facility] Comment on above: Performed By: #### 5 7306, 62770 #### [facility] 3000 [facility] [address] IMMATURE GRANS 0.5 % Normal 0.0-1.0 [facility] Comment on above: Performed By: #### 5 7306, 79737 #### [facility] [address] [facility] [place] [address], [facility] Lymphocytes (Bld) [#/Vol] 1.2 10*3/uL Normal 1.2-4.0 [facility] Comment on above: Performed By: #### 5 7306, 51222 #### [facility] [address] [facility] [place] [address], [facility] Lymphocytes/100 WBC (Bld) 16.6 % Low 20.0-45.0 [facility] Comment on above: Performed By: #### 5 7306, 97158 #### [facility] [address] [place] [address], [place] MCH (RBC) [Entitic mass] 27.8 pg Normal 27.0-33.0 [facility] Comment on above: Performed By: #### 5 7306, 26823 #### [facility] 3000 [facility] [address] MCHC (RBC) [Mass/Vol] 33.1 g/dL Normal 32.0-35.0 [facility] Comment on above: Performed By: #### 5 7306, 92818 #### [facility] 3000 [facility] [address] MCV (RBC) [Entitic vol] 84.2 fL Normal 82.0-98.0 [facility] Comment on above: Performed By: #### 5 7306, 46166 #### [facility] 3000 [facility] [address] Monocytes (Bld) [#/Vol] 0.7 10*3/uL Normal 0.1-1.0 [facility] Comment on above: Performed By: #### 5 7306, 39691 #### [facility] 3000 [facility]. [address] MONOS 9.4 % Normal 5.0-12.0 [facility] Comment on above: Performed By: #### 5 7306, 69507 #### [facility] 3000 [facility]. [address] Neutrophils/100 WBC (Bld) 70.3 % Normal 40.0-72.0 [facility] Comment on above: Performed By: #### 5 7306, 39459 #### [facility] [address] [facility] [place] [address], [facility] Nucleated RBC/100 WBC (Bld) [Ratio] 0 % Normal 0-0 [facility] Comment on above: Performed By: #### 5 73, 71314 #### [facility] 3000 [facility]. [address] PLAT CNT 235 10*3/uL Normal 150-400 [facility] Comment on above: Performed By: #### 5 7307, 78480 #### [facility] 3000 [facility] [address] RBC (Bld) [#/Vol] 5.89 10*6/uL High 4.20-5.70 [facility] Comment on above: Performed By: #### 5 7307, 50622 #### [facility] 3000 [facility] [address] WBC (Bld) [#/Vol] 7.48 10*3/uL Normal 4.00-10.60 [facility] Comment on above: Performed By: #### 5 7307, 04972 #### [facility] [address] PROTHROMBIN TIMEon 9 INR Coag (PPP) [Relative time] 1.12 {INR} Normal 0.91-1.16 [facility] Comment on above: Result Comment: ACCC P [...] CHEST 1995;108:[id number]-246S. Performed By: #### 5 7307, 89449 #### [facility] [address] PT Coag (PPP) [Time] 14.4 s Normal 12.3-14.8 [facility] Comment on above: Result Comment: ALL RESULTS MUST BE INTERPRETED WITH RESPECT TO BLOOD DRAWING ARTIFACT OR DILUTION ERROR OF ANTICOAGULANT AT THE TIME OF SAMPLING. Performed By: #### 5 7307, 00055 #### [facility] [address] TYPE AND SCREENon 01-23-2019 ABO INTERPRETATION A Normal [facility] Comment on above: Performed By: #### 5 7307, 20552 #### [facility] [address] [place] [address], [facility] RH INTERPRETATION Positive Normal The [facility] Comment on above: Performed By: #### 5 7307, 72062 #### [facility] [address] [facility] [address] 3D CERVICAL SPINE WO CONT RASTon 01-12-2019 CT 3D CERVICAL SPINE WO CONTRAST [facility] Department of Radiology [address] [place] [id number] ======== Patient Name: MATTY GARCES : 1970 Sex: M Age: Race: White Pt. Location: Patient Status: D Ordered Date: 01/10/2019 2:15:00 PM Completed Date: 01/12/2019 10:32 AM Requesting Provider: LUCIANO DAVIS Attending Provider: LUCIANO DAVIS Report Copy To: HOY, VENUS Signs & Symptoms: M48.02 Spinal stenosis, cervical region I10 History: Althea otto auth # [id number] 01/10/19-02/09/19 11516 *er Comments: Exam: CT 3D CERVICAL SPINE [...] incomplete Electronically signed by:Ten Uriarte. Transcribed by: [email or web address], User Resident: Electronically Signed by: TEN Posadas GILL @ 01/13/2019 09:18 AM Normal [facility] CERVICAL SPINE 2 OR 3 Son 01-05-2019 CERVICAL SPINE 2 OR 3 [facility] Department of Radiology [address] [place] [id number] ======== Patient Name: MATTY GARCES : [...] , Exam: CERVICAL SPINE 2 OR 3 [facility] ======== CERVICAL SPINE 2 OR 3 S 01/05/2019 [...] findings. Electronically signed by:Ten Uriarte. Transcribed by: [email or web address], User Resident: SHELLY DELA CRUZ Electronically Signed by: TEN URIARTE @ 01/05/2019 12:37 PM I personally read this/these film(s) with this resident Normal [facility] Comment on above: Order Comment: , , = ========= , Ordering Provider - LUCIANO DAVIS MD , CERVICAL SPINE 2 OR 3 [facility] 08-30-2018 CERVICAL SPINE 2 OR 3 [facility] Department of Radiology [address] [place] [phone] ======== Patient Name: MATTY GARCES : 1970 Sex: M Age: Race: White Pt. Location: Patient Status: O Ordered Date: 08/30/2018 9:35:00 AM Completed Date: 08/30/2018 09:43 AM Requesting Provider: LUCIANO DAVIS Attending Provider: LUCIANO DAVIS Report Copy To: VENUS JAEGER Signs & Symptoms: M50.90 Cervical disc disorder, unsp, unspecified cervical region I10 History: [place] Comments: , POST OP XRAY AP/LAT ONLY [...] findings. Electronically signed by:Bella King. Transcribed by: [email or web address], User Resident: RYAN ANDERSON Electronically Signed by: BELLA KING @ 08/30/2018 05:45 PM I personally read this/these film(s) with this resident Normal [facility] Comment on above: Order Comment: , POS T OP XRAY AP/LAT ONLY , POST OP XRAY AP/LAT ONLY , , , Ordering Provider - LUCIANO DAVIS MD , Operative Reporton 8 Operative Report MR#: [id number] I [facility] Pt. Name: Matty Garces Room #: [id number] Discharge Date: Birthdate: 1970 OPERATIVE REPORT DATE OF SURGERY: 08/17/2018 SURGEON: Luciano Daivs M.D. PREOPERATIVE DIAGNOSIS: Herniated cervical disk at C6-7. POSTOPERATIVE DIAGNOSIS: Herniated cervical disk at C6-7. DIALYSIS BIOMED TECHNICIAN: ADENIKE Larios. ANESTHESIA: Endotracheal, Braida. PROCEDURE: [...] Davis M.D. Date Trans: 08/17/2018 11:25 P/sasha [id number] cc: Venus Jaeger M.D. [address] [place] [address] Normal [facility] CERVICAL SPINE 2 OR 3 [facility] 08-17-2018 CERVICAL SPINE 2 OR 3 [facility] Department of Radiology [address] [place] [phone] ======== Patient Name: MATTY GARCES : [...] findings. Electronically signed by:Bernice Hoyt. Transcribed by: [email or web address], User Resident: KENNETH DUVAL Electronically Signed by: BERNICE HOYT @ 08/18/2018 01:06 PM I personally read this/these film(s) with this resident Normal [facility] Comment on above: Order Comment: C6-7 ACDF with POC GLUCOSE LABon 08-17-2018 Glucose [Mass/Vol] 113 mg/dL High 70-100 [facility] Comment on above: Performed By: #### 8 5499 #### [facility] 3000 [facility] [place] [address], [facility] RBC'S 2 UNITSon 08-17-2018 CROSSMATCH INTERP 1 COMP Normal [facility] Comment on above: Performed By: #### 8 6002 #### [facility] [address] [facility] [place] [address], [facility] CROSSMATCH INTERP 2 COMP Normal [facility] Comment on above: Performed By: #### 8 6002 #### [facility] 3000 [facility]. [address] PRODUCT CODE 1 E0336 Normal [facility] Comment on above: Performed By: #### 8 6002 #### [facility] [address] [facility] [place] [address], [facility] PRODUCT CODE 2 E0336 Normal [facility] Comment on above: Performed By: #### 8 6002 #### [facility] [address] [facility] [place] [address], [facility] PRODUCT STATUS 1 RE Normal [facility] Comment on above: Result Comment: Resu lt changed by IF on 08/20/2018 07:48. The previous value was XM. Performed By: #### 8 6002 #### [facility] 3000 [facility] [place] [address], [facility] PRODUCT STATUS 2 RE Normal [facility] Comment on above: Result Comment: Resu lt changed by IF on 08/20/2018 07:48. The previous value was XM. Performed By: #### 8 6002 #### [facility] [address] [place] [address], [facility] UNIT ABO 1 A Normal [facility] Comment on above: Performed By: #### 8 6002 #### [facility] [address] [place] [address], [facility] UNIT ABO 2 A Normal [facility] Comment on above: Performed By: #### 8 6002 #### [facility] [address] [place] [address], [facility] UNIT ID 1 [id number] Normal [facility] Comment on above: Performed By: #### 8 6002 #### [facility] [address] [place] [address], [facility] UNIT ID 2 [id number] Normal [facility] Comment on above: Performed By: #### 8 6002 #### [facility] [address] [place] [address], [facility] UNIT RH 1 Positive Normal [facility] Comment on above: Performed By: #### 8 6002 #### [facility] [address] [place] [address], [facility] UNIT RH 2 Positive Normal [facility] Comment on above: Performed By: #### 8 6002 #### [facility] [address] [place] [address], [facility] *MRSA/MSSA CULTUREon 018 *MRSA/MSSA CULTURE Clinical Report: (D) Specimen: NASAL SWAB Collected: 08/02/2018 12:37 Status: Final Last Updated: 08/03/2018 14:26 ISO (Final) No Methicillin Resistant Staphylococcus aureus Isolated (MRSA) ISO (Final) Methicillin Sensitive Staphylococcus aureus (MSSA) Isolated Normal [facility] Comment on above: Performed By: #### 3 1302 #### [facility] [address] APTTon 08-02-2018 aPTT Coag (Bld) [Time] 31.2 s Normal 25.0-35.0 [facility] Comment on above: Result [...] THIS PURPOSE. Performed By: #### 5 7307, 67372 #### [facility] 3000 [facility]. [address] BASIC METABOLIC PANELon 07-15 Calcium [Mass/Vol] 9.4 mg/dL Normal 8.6-10.3 [facility] Comment on above: Performed By: #### 0 0071 #### [facility] [address] [facility] [place] [address], [facility] Chloride [Moles/Vol] 103 mmol/L Normal 98-107 [facility] Comment on above: Performed By: #### 0 0071 #### [facility] [address] [facility] [address], [facility] CO2 [Moles/Vol] 29 mmol/L Normal 21-31 [facility] Comment on above: Performed By: #### 0 0071 #### [facility] [address] [facility] [place] [address], [facility] Creatinine [Mass/Vol] 1.06 mg/dL Normal 0.70-1.30 [facility] Comment on above: Performed By: #### 0 0071 #### [facility] [address] [facility] [place] [address], [facility] GFR/1.73 sq M predicted among blacks MDRD (S/P/Bld) [Vol rate/Area] mL/min/{1.73_m2} Normal >60 [facility] Comment on above: Performed By: #### 0 0071 #### [facility] [address] [facility] [place] [address], [facility] GFR/1.73 sq M predicted among non-blacks MDRD (S/P/Bld) [Vol rate/Area] mL/min/{1.73_m2} Normal >60 [facility] Comment on above: Performed By: #### 0 0071 #### [facility] [address] [facility] [place] [address], [facility] Glucose [Mass/Vol] 84 mg/dL Normal 70-100 [facility] Comment on above: Performed By: #### 0 0071 #### [facility] [address] [place] [address], [facility] Potassium [Moles/Vol] 4.0 mmol/L Normal 3.5-5.1 [facility] Comment on above: Performed By: #### 0 0071 #### [facility] [address] [facility] [place] [address], [facility] Sodium [Moles/Vol] 140 mmol/L Normal 136-145 [facility] Comment on above: Performed By: #### 0 0071 #### [facility] [address] [facility] [place] [address], [facility] Urea nitrogen [Mass/Vol] 20 mg/dL Normal 7-25 [facility] Comment on above: Performed By: #### 0 0071 #### [facility] [address] [facility] [place] [address], [facility] CBC W/DIFFon 08-02-2018 ABS BASOPHILS 0.1 10*3/uL Normal 0.0-0.2 [facility] Comment on above: Performed By: #### 5 0103 #### [facility] [address] [place] [address], [facility] ABS IMM GRANS 0.1 10*3/uL Normal 0.0-0.2 [facility] Comment on above: Performed By: #### 5 0103 #### [facility] [address] [place] [address], [facility] ABS NEUTROPHILS 4.2 10*3/uL Normal 1.6-7.6 [facility] Comment on above: Performed By: #### 5 0103 #### [facility] [address] [place] [address], [facility] Basophils/100 WBC (Bld) 1.3 % High 0.0-1.0 [facility] Comment on above: Performed By: #### 5 0103 #### [facility] [address] [facility] [place] [address], [facility] Eosinophils (Bld) [#/Vol] 0.1 10*3/uL Normal 0.0-0.5 [facility] Comment on above: Performed By: #### 5 0103 #### [facility] [address] [place] [address], [facility] Eosinophils/100 WBC (Bld) 2.0 % Normal 0.0-6.0 [facility] Comment on above: Performed By: #### 5 0103 #### [facility] [address] [facility] [place] [address], [facility] Erythrocyte distribution width (RBC) [Ratio] 13.6 % Normal 11.5-15.0 [facility] Comment on above: Performed By: #### 5 3 #### [facility] [address] [facility] [place] [address], [facility] Hematocrit (Bld) [Volume fraction] 44.3 % Normal 39.0-50.0 [facility] Comment on above: Performed By: #### 5 3 #### [facility] [address] [place] [address], [facility] Hemoglobin (Bld) [Mass/Vol] 15.1 g/dL Normal 13.0-17.0 [facility] Comment on above: Performed By: #### 5 0103 #### [facility] [address] [place] [address], [facility] IMMATURE GRANS 1.1 % High 0.0-1.0 [facility] Comment on above: Performed By: #### 5 0103 #### [facility] [address] [place] [address], [facility] Lymphocytes (Bld) [#/Vol] 1.2 10*3/uL Normal 1.2-4.0 [facility] Comment on above: Performed By: #### 5 0103 #### [facility] [address] Lymphocytes/100 WBC (Bld) 18.3 % Low 20.0-45.0 [facility] Comment on above: Performed By: #### 5 0103 #### [facility] [address] [place] [address], [facility] MCH (RBC) [Entitic mass] 29.0 pg Normal 27.0-33.0 [facility] Comment on above: Performed By: #### 5 0103 #### [facility] [address] MCHC (RBC) [Mass/Vol] 34.1 g/dL Normal 32.0-35.0 [facility] Comment on above: Performed By: #### 5 3 #### [facility] [address] [place] [address], [facility] MCV (RBC) [Entitic vol] 85.0 fL Normal 82.0-98.0 [facility] Comment on above: Performed By: #### 5 3 #### [facility] [address] [place] [address], [facility] Monocytes (Bld) [#/Vol] 0.7 10*3/uL Normal 0.1-1.0 [facility] Comment on above: Performed By: #### 5 0103 #### [facility] [address] [place] [address], [facility] MONOS 11.1 % Normal 5.0-12.0 [facility] Comment on above: Performed By: #### 5 0103 #### [facility] [address] [place] [address], [facility] Neutrophils/100 WBC (Bld) 66.2 % Normal 40.0-72.0 [facility] Comment on above: Performed By: #### 5 0103 #### [facility] [address] [place] [address], [facility] Nucleated RBC/100 WBC (Bld) [Ratio] 0 % Normal 0-0 [facility] Comment on above: Performed By: #### 5 0103 #### [facility] [address] PLAT CNT 179 10*3/uL Normal 150-400 [facility] Comment on above: Performed By: #### 5 0103 #### [facility] [address] [place] [address], [facility] RBC (Bld) [#/Vol] 5.21 10*6/uL Normal 4.20-5.70 [facility] Comment on above: Performed By: #### 5 0103 #### [facility] [facility] [address] [place] [address], [facility] WBC (Bld) [#/Vol] 6.39 10*3/uL Normal 4.00-10.60 [facility] Comment on above: Performed By: #### 5 3 #### [facility] [address] CERVICAL SPINE 4 OR 5 VIEWSo n 08-02-2018 CERVICAL SPINE 4 OR 5 VIEWS [facility] Department of Radiology [address] [place] [phone] ======== Patient Name: MATTY GARCES : [...] findings. Electronically signed by:Bella King. Transcribed by: [email or web address], User Resident: KENNETH DUVAL Electronically Signed by: BELLA KING @ 08/03/2018 11:58 AM I personally read this/these film(s) with this resident Normal The [facility] Comment on above: Order Comment: , PRE OP XRAY AP/LAT \EANDE\ FLEX/EX , PREOP XRAY AP/LAT \EANDE\ FLEX/EX , , , Ordering Provider - LUCIANO DAVIS MD , PROTHROMBIN TIMEon 8 INR Coag (PPP) [Relative time] 1.15 {INR} Normal 0.91-1.16 The [facility] Comment on above: Result [...] CHEST 1995;[id number]. Performed By: #### 5 7307, [id number] #### [facility] [address] [place] [address], [facility] PT Coag (PPP) [Time] 14.7 s Normal 12.3-14.8 The [facility] Comment on above: Result Comment: ALL RESULTS MUST BE INTERPRETED WITH RESPECT TO BLOOD DRAWING ARTIFACT OR DILUTION ERROR OF ANTICOAGULANT AT THE TIME OF SAMPLING. Performed By: #### 5 7307, [id number] #### [facility] [address] [place] [address], [facility] TYPE AND SCREENon 08-02-2018 ABO INTERPRETATION A Normal [facility] Comment on above: Order Comment: 2 uni ts 2 units 2 units 2 units 2 units Performed By: #### 6 2586 #### [facility] [address] [place] [address], [facility] RH INTERPRETATION Positive Normal The [facility] Comment on above: Order Comment: 2 uni ts 2 units 2 units 2 units 2 units Performed By: #### 6 [id number] #### [facility] [address] [place] [address], [facility] URINALYSIS REFLEXon 08-02-20 18 Appearance (U) CLEAR Normal CLEAR The [facility] Comment on above: Performed By: #### 3 0965 #### [facility] [address] [place] [address], [facility] Bilirubin [Mass/Vol] Negative Normal NEGATIVE The [facility] Comment on above: Performed By: #### 3 0965 #### [facility] [address] [place] [address], [facility] BLOOD Negative Normal NEGATIVE The [facility] Comment on above: Performed By: #### 3 0965 #### [facility] [address] [place] [address], [facility] Color (U) YELLOW Normal YELLOW The [facility] Comment on above: Performed By: #### 3 0965 #### [facility] [address] [facility] [place] [address], [facility] Glucose [Mass/Vol] 150 mg/dL Abnormal NEGATIVE The [facility] Comment on above: Performed By: #### 3 0965 #### [facility] [address] [place] [address], [facility] KETONE Negative Normal NEGATIVE The [facility] Comment on above: Performed By: #### 3 0965 #### [facility] [address] [facility] [place] [address], [facility] [place] Negative Normal NEGATIVE The [facility] Comment on above: Performed By: #### 3 0965 #### [facility] [address] [place] [address], [facility] MICRO NOT DONE negative chemical reactions unless requested in original order Normal The [facility] Comment on above: Performed By: #### 3 0965 #### [facility] [address] [place] [address], [facility] Nitrite Ql (U) Negative Normal NEGATIVE The [facility] Comment on above: Performed By: #### 3 0965 #### [facility] [address] [place] [address], [facility] pH (Bld) 5.0 Normal 5.0-8.0 The [facility] Comment on above: Performed By: #### 3 0965 #### [facility] [address] [place] [address], [facility] Protein (U) [Mass/Vol] Negative Normal NEGATIVE The [facility] Comment on above: Performed By: #### 3 0965 #### [facility] [address] [place] [address], [facility] SPEC GRAV 1.024 High 1.015-1.020 The [facility] Comment on above: Performed By: #### 3 0965 #### [facility] [address] [facility] [place] [address], [facility] Vital Signs Date Time Vital Sign Value Performing Clinician Facility 01-03-2025 14:44-0400 Body height 188 cm Rubén Geiger MD Work Phone: [facility] 01-03-2025 14:44-0400 Body mass index (BMI) [Ratio] 35.31 kg/m2 Rubén Geiger MD Work Phone: [facility] 01-03-2025 14:44-0400 Body weight 124.74 kg Rubén Geiger MD Work Phone: [facility] 07-03-2024 14:45-0400 Body height 188 cm Rubén Geiger MD Work Phone: [facility] 07-03-2024 14:45-0400 Body mass index (BMI) [Ratio] 37.62 kg/m2 Rubén Geiger MD Work Phone: [facility] 07-03-2024 14:45-0400 Body weight 132.9 kg Rubén Geiger MD Work Phone: [facility] 02-25-2022 10:30-0400 Blood Pressure Location Viola Lue [facility] 02-25-2022 10:30-0400 Diastolic blood pressure 107 mm[Hg] Viola Lue [facility] 02-25-2022 10:30-0400 Heart rate 74 /min Viola Lue [facility] 02-25-2022 10:30-0400 Respiratory rate 16 /min Viola Lue [facility] 02-25-2022 10:30-0400 Systolic blood pressure 157 mm[Hg] Viola Grullon [facility] Encounters Encounter Date Encounter Type Care Provider Facility Start: 01-03-2025 End: 01-03-2025 Office outpatient visit 25 minutes Rubén Geiger MD Work Phone: [facility] Comment on above: Primary narcolepsy w ith cataplexy (CMS/HCC) (Primary Dx); Excessive daytime sleepiness; Obstructive sleep apnea Start: 01-03-2025 End: 01-03-2025 ambulatory RUBÉN GEIGER Not Available Start: 01-03-2025 End: 01-03-2025 Jeremy flowsheet Rubén Geiger MD Work Phone: [facility] Start: 01-03-2025 End: 01-03-2025 Bamboo flowsheet Rubén Geiger MD Work Phone: [facility] Start: 12-11-2024 End: 12-11-2024 ambulatory RUBÉN GEIGER Not Available Start: 12-11-2024 End: 12-11-2024 Office outpatient visit 25 minutes Rubén Geiger MD Work Phone: [facility] Comment on above: 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 Other Phone: [facility] Start: 10-12-2024 End: 10-12-2024 Telephone encounter Heather Miguel NP Work Phone: [facility] 210 Start: 10-08-2024 Evaluation and manag ement of inpatient [facility] Start: 10-08-2024 End: 10-11-2024 Evaluation and management of inpatient ARMANDO BERG [facility] Start: 10-02-2024 End: 10-02-2024 Refill Marianna Sheehan [facility] Comment on above: Excessive daytime sl eepiness; Obstructive sleep apnea Start: 09-28-2024 Evaluation and manag ement of inpatient MARIANNA SUAREZ [facility] Start: 09-25-2024 Evaluation and manag ement of inpatient MARILOU TOMLIN [facility] Start: 09-25-2024 Evaluation and manag ement of inpatient [facility] Start: 09-24-2024 Evaluation and manag ement of inpatient [facility] Start: 09-24-2024 Evaluation and manag ement of inpatient SANDRINE HAHN [facility] Start: 09-24-2024 Evaluation and manag ement of inpatient [facility] Start: 09-23-2024 Emergency department patient visit [facility] Start: 09-23-2024 Emergency department patient visit [facility] Start: 09-23-2024 Emergency department patient visit [facility] Start: 09-23-2024 End: 09-28-2024 Evaluation and management of inpatient SERA WAYNE [facility] Start: 09-21-2024 End: 09-21-2024 [facility]ulatory [facility] Work Phone: Start: 09-21-2024 End: 09-21-2024 Departed Referred Trey Vallejo DPM Work Phone: [facility] Start: 07-04-2024 End: 07-05-2024 Telephone encounter [...] [facility] Start: 07-03-2024 End: 07-03-2024 Bamboo flowsheet Rubén Geiger MD Work Phone: [facility] Start: 05-10-2024 End: 05-11-2024 Refill Rubén Geiger MD Work Phone: [facility] Comment on above: Primary insomnia Start: 03-27-2024 End: 03-27-2024 ambulatory RUBÉN GEIGER Not Available Start: 01-10-2024 End: 01-10-2024 ambulatory VALENCIA Pate APLING Not Available Start: 01-03-2024 End: 01-03-2024 ambulatory Trey Smith [facility] Work Phone: Start: 01-03-2024 End: 01-03-2024 Departed Referred DPM [facility] Work Phone: [facility] Start: 11-29-2023 End: 11-30-2023 ambulatory Diallo Beauchamp MD Facility: [facility] Start: 10-18-2023 End: 10-19-2023 ambulatory Diallo Beauchamp MD Facility:[facility] Start: 08-30-2023 End: 08-31-2023 ambulatory Diallo Beauchamp MD Facility: [facility] Start: 07-12-2023 End: 07-13-2023 ambulatory Diallo Beauchamp MD Facility: [facility] Start: 06-14-2023 End: 06-15-2023 ambulatory Diallo Beauchamp MD Facility:[facility] Start: 12-06-2022 End: 12-06-[address] VENUS JAEGER . Facility: Start: 12-05-2022 Encounter for genera l adult medical examination without abnormal findings DR VENUS JAEGER . The [facility] Start: 12-01-2022 End: 12-02-[address] VENUS JAEGER . Facility: Start: 12-01-2022 End: 12-02-2022 Encounter for general adult medical examination without abnormal findings DR VENUS JAEGER . Facility:[facility] Start: 07-10-2022 End: 07-11-[address] VENUS JAEGER . Facility:[facility] Start: 03-26-2022 End: 03-26-[address] VENSU JAEGER . Facility: Start: 03-13-2022 End: 03-14-[address] VENUS JAEGER . Facility: Start: 02-25-2022 End: 02-25-2022 Patient encounter procedure Viola Grullon [facility] Start: 01-04-2022 End: 01-05-[address] VENUS JAEGER . Facility: Start: 01-30-2019 End: 02-01-2019 Evaluation and management of inpatient PROVIDER UNKNOWN Facility:[facility] Start: 08-17-2018 End: 08-18-2018 Patient encounter procedure PROVIDER UNKNOWN Facility:[facility] Procedures Date Procedure Procedure Detail Performing Clinician Start: 12-01-[address] FRANKLIN JAEGER . Comment on above: Performed By: #### P [facility] #### [facility] Laboratory [address] [address] [address] Shabnam Rae Start: 01-30-2019 FUSION CERV JT W INT BD FUS DEV, ANT APPR A COL, OPEN [facility] Start: 01-30-2019 REMOVAL OF INT FIX F ROM CERVCAL VERTEBRA, OPEN APPROACH [facility] Start: 01-23-2019 Antibody screen PROVIDE R UNKNOWN Comment on above: Performed By: #### 5 [id number], [id number] #### [facility] [address] [facility] [place] [address], [facility] Start: 08-17-2018 ANESTH SPINE CORD SURGERY SANDRA [...] units Performed By: #### 6 [id number] #### [facility] [address] [place] [address], [facility] Start: 02-08-1998 H/O: vasectomy History of vasectomy Rubén Geiger MD Work Phone: Colonoscopy Viola Grullon Hemorrhoids (disorder) Viola Grullon Hernia of abdominal cavity (disorder) Viola Grullon Tonsillectomy Viola Grullon Plan of Treatment Date Care Activity Detail Author Start: 04-04-2025 End: 04-04-2025 Patient encounter procedure 04/04/2025 11:20 AM EDT Office Visit [facility] [address] [phone] Rubén Geiger MD [address] [facility] [address] [place] [address] [id number] [facility] Start: 01-03-2025 End: 01-03-2025 Patient encounter procedure [facility] Comment on above: Arrived Start: 10-04-2024 End: 10-04-2024 Patient encounter procedure 10/04/2024 2:20 PM EST Office Visit [facility] [address] [phone] Rubén Geiger MD [address] [facility] [address] [place] [id number] [facility] Start: 09-21-2024 Superficial Wound Culture Superficial Wound Culture [facility] Start: 07-03-2024 End: 07-03-2024 Patient encounter procedure [facility] Comment on above: Arrived Start: 05-14-2024 Influenza vaccination Influenza Vacc ine (#1) [facility] Start: 1970 Screening for malign ant neoplasm of colon [facility] Bacteria identified in Unspecified specimen by Aerobe culture [facility] Immunizations Immunization Date Immunization Notes Care Provider Fa cility 07-06-2023 influenza virus vacc ine, unspecified formulation Rubén Geiger MD Work Phone: [facility] Payers Date Payer Category Payer Self-pay [id number] 2022 Medicaid [id number] 2022 Medicaid [id number] 2022 Unknown 1970 Unknown [id number] 2.16.8 40.1.881281.3.579.2.647 1969 Unknown [id number] 2.16.8 40.1.515326.3.579.2.647 1969 Unknown [id number] 2.16.84 0.1.936113.3.579.2.593 1969 Unknown [id number] 2.16.84 0.1.629864.3.579.2.593 1969 Unknown [id number] 2.16.84 0.1.747509.3.579.2.593 1969 Unknown [id number] 2.16.84 0.1.393678.3.579.2.593 1969 Unknown [id number] 2.16.84 0.1.338131.3.579.2.593 1969 Unknown [id number] 2.16.84 0.1.994712.3.579.2.593 1969 Unknown [id number] 2.16. 840.1.907820.3.579.2.196 1969 Unknown [id number] 2.16. 840.1.540650.3.579.2.196 1969 Unknown [id number] 2.16. 840.1.731939.3.579.2.196 1969 Unknown [id number] 2.16. 840.1.788682.3.579.2.196 1969 Unknown [id number] 2.16. 840.1.721104.3.579.2.196 1969 Unknown [id number] 2.16.84 0.1.819985.3.579.2.1259 1969 Unknown [id number] 2.16.84 0.1.154959.3.579.2.1259 1969 Unknown [id number] 2.16.84 0.1.196573.3.579.2.1259 1969 Unknown [id number] 2.16.84 0.1.040849.3.579.2.1259 1969 Unknown [id number] 2.16.84 0.1.882882.3.579.2.1259 1969 Unknown [id number] 2.16.84 0.1.799910.3.579.2.1259 1959 Unknown [id number] Unknown [id number] Unknown [id number] 2.16.8 40.1.530967.3.579.2.531 Unknown [id number] 2.16.8 40.1.451161.3.579.2.531 Social History Date Type Detail Facility Tobacco smoking status No Smokin g Status Entered [facility] Start: 03-27-2024 End: 07-03-2024 Sex Assigned At Male [facility] Start: 05-15-2018 End: 05-15-2018 Tobacco smoking status NHIS Ex-smoker (finding) [facility] Start: 1970 Sex Assigned At Male F [facility] Start: 03-11-2023 Tobacco smoking stat us NHIS Never smoked tobacco [facility] Start: 03-11-2023 Tobacco use and exposure Smokeless tobacco non-user [facility] Start: 03-27-2024 End: 07-03-2024 Alcoholic beverage intake Ex-drinker (finding) [facility] Start: 03-27-2024 End: 07-03-2024 History of Social function [facility] Start: 1970 Sex assigned at Not on file [facility] Start: 09-22-2024 Sex Male (finding) [facility] Functional Status Date Assessment Result Facility 02-25-2022 Functional Status N/A [facility] Clinical Notes 02-25-2022 to 01-03-2025 Rbuén Geiger MD - 01/03/2025 2:40 PM EDTBmaris Geiger MD - 12/11/2024 4:10 PM EDTTelephone Encounter - Isabella Manzano - 11/14/2024 9:49 AM EST Note Date & Type Note Facility 01-03-2025 History of Present illness Narrative Images from the original note were not included. Patient states that he is still having issues walking around due to surgery that he had from a fall. States that he is still having issues with his ankles. States that he broke his leg due to the fall. Patient states that it will take 6 months to heal. Patient states that sleep is doing better then it was with the Xywav. Patient states that he is currently taking 4.5 each night. Patient states that if he takes full dose then he will get 3-4 hours a sleep. Patient states that when he only takes 1/2 dose it will take him an hour to fall asleep. Patient states that if he is calm when he takes dose and goes to bed he can fall asleep right away but if he has a lot going on then it takes him longer. States that when he wakes up he is up and then can't fall back to sleep. Patient feels like he still needs higher dose to help. Patient states that he is still taking naps during the day and sleeps in two shift . States that sleeping in shifts does better for him. CHIEF COMPLAINT REASON FOR VISIT : HPI: Matty Garces is a 54 y.o. male who presents for CURRENT MEDICATIONS: ALLERGIES/DISCONTINUE MEDICATIONS Current Outpatient Medications [...] 1 mg, Oral, 2 times daily HYDROcodone-acetaminophen ([place]) 5-325 MG tablet hydrOXYzine pamoate (Vistaril) 25 [...] (DEPO-TESTOSTERONE) 200 mg, Intramuscular, Every 14 days thiamine (VITAMIN B-1) 100 mg, Oral, Daily tiZANidine (ZANAFLEX) 4 mg, Oral, Nightly Allergies Allergen Reactions Fentanyl Unknown Hydrocodone Unknown Morphine And Codeine Unknown Other Other Reaction(s): Unknown, will accelerate blindness in eye Medications Discontinued During This Encounter Medication Reason modafinil (Provigil) 200 MG tablet Reorder PAST MEDICAL HISTORY: SURGICAL/SOCIAL/FAMILY HISTORY DEPRESSION SCREEN: [...] Wan ULNAR NERVE TRANSPOSITION Left 2014 UVULOPALATOPHARYNGOPLASTY Procedure:U.P.P.P.;Disease:Trachea l stenosis Social History Tobacco Use Smoking status: Never Smokeless tobacco: Never Substance Use Topics Alcohol use: Not Currently Drug use: Never Family History Problem Relation Name Age of Onset Glaucoma Mother Diabetes Father Depression: Not on file REVIEW OF SYMPTOMS: Review of Systems Const: Denies appetite change, fever, chills. Allergy: Denies medication reaction. Ocular: Denies visual acuity change. ENT: Denies hearing change. Endoc: Denies weight loss. Resp: Denies dyspnoea, wheezing. Cardiac: Denies angina, palpitations. GI: Denies nausea, vomiting. Haem: Denies bleeding. : Denies incontinence. MSK: Denies arthralgias, joint oedema. Derm: Denies rash, hair loss. Neuro: Denies ataxia, tremor. Also see HPI for elements of ROS documented therein and for details of positive findings, which shall supersede the foregoing. OBJECTIVE: 01/03/2025 2:44 PM 07/03/2024 2:45 PM 03/27/2024 9:20 AM Vitals BMI 35.31 kg/m2 37.62 kg/m2 39.29 kg/m2 BSA (m2) 2.55 m2 2.64 m2 2.69 m2 Systolic 122 Diastolic 78 Height (in) 6' 2 6' 2 6' 2 Weight (lb) 275 293 306 Visit Report Report Report Report EXAM: Neurological Exam GENERAL EXAMINATION Appearance: in no acute distress, well developed, well nourished. Head: normocephalic, atraumatic. Eyes: pupils equal, round, reactive to light and accommodation. Ears: normal. Mouth: mucosa moist. Throat: clear. Neck: neck supple, full range of motion, no cervical lymphadenopathy. Skin: no suspicious lesions, warm and dry. Heart: no murmurs, regular rate and rhythm, S1, S2 normal. Lungs: clear to auscultation bilaterally. Abdomen: normal, bowel sounds present, soft, nontender, nondistended. Extremities: no clubbing, cyanosis, or edema. NEUROLOGICAL EXAMINATION Mental Status: The patient is alert and oriented to person, place, and time. Except as noted, thought content, form, and comprehension was normal. Phonation, articulation, resonance, and prosody are normal. Cranial Nerves: Pupils were 4.0 millimeters, equal, round, and reactive to light and accommodation, both directly and consensually. Visual mae were full by confrontation. There was no ptosis; extra-ocular movements were full; and there was no nystagmus. Funduscopic exam is normal. Masseters are of normal strength. Facial movement is normal. Hearing is grossly intact. There is no dysarthria. The gag reflex is equal bilaterally. Sternocleidomastoids and trapezii are of normal strength. The tongue protrudes in the midline. Motor: Muscle testing was performed in all four extremities, including at least plant and maintenance technician, finger abductors, biceps, triceps, deltoid, toe flexors and extensors, tibialis anterior, triceps surae, quadriceps femoris, biceps femoris, and iliopsoases. Tone is normal. Muscle bulk is normal. Fasciculations are not seen . Pronator drift was not evident. Sensory: Sensation to touch, temperature, and vibration was normal in the arms, legs and face. Romberg is negative. Reflexes: Biceps, triceps, brachioradialis are 2/4 bilaterally. Patellar and Achilles reflexes are 2/4 bilaterally. Plantar responses were flexor bilaterally. Coordination: Dysmetria and dysdiadochokinesia are absent. Tremor is absent; dystonia is absent; chorea is absent. Gait And Station: Station and gait are normal. Apraxia and spasticity are not evident. Arm swing is normal. Toe, heel, and tandem walking are performed without difficulty. Musculoskeletal: Trigger-point tenderness was absent. There is no spasm of the trapezii or paraspinals. PROCEDURE: NONE ASSESSMENT AND PLAN: Diagnoses and all orders for this visit: Primary narcolepsy with cataplexy (CMS/HCC) -The patient was counseled on the risks of stroke, Ml, and sudden with PATEL, along with the need for compliance with CPAP/BiPAP treatment. -I counseled the patient on the possible side effects and interactions of medications. -Consider a follow up sleep study with MSLT. Excessive daytime sleepiness - modafinil (Provigil) 200 MG tablet; Take 1 tablet (200 mg) by mouth in the morning and at noon Obstructive sleep apnea - modafinil (Provigil) 200 MG tablet; Take 1 tablet (200 mg) by mouth in the morning and at noon Increase Xywav to 6mg documented in this encounter [facility] 12-11-2024 History of Present illness Narrative Images from the original note were not included. CHIEF COMPLAINT REASON FOR VISIT : HPI: Matty Garces is a 54 y.o. male who presents for follow up for his insomnia. He did present for a televisit. CURRENT MEDICATIONS: ALLERGIES/DISCONTINUE MEDICATIONS Current Outpatient Medications [...] 1 mg, Oral, 2 times daily HYDROcodone-acetaminophen ([place]) 5-325 MG tablet hydrOXYzine pamoate (Vistaril) 25 MG capsule TAKE ONE CAPSULE BY MOUTH ONCE DAILY AT BEDTIME Meclizine HCl 25 mg, Oral, Every 24 hours Melatonin 10 mg, Oral, Nightly modafinil (PROVIGIL) 200 mg, Oral, 2 times daily (04/24) Multiple Vitamins-Minerals (Multi For Him 50+) tablet as directed Orally ondansetron (ZOFRAN) 4 mg, Oral, As needed ondansetron (ZOFRAN) 8 mg, Oral, Every 8 hours PRN ondansetron ODT (Zofran-ODT) 4 MG disintegrating tablet [...] (DEPO-TESTOSTERONE) 200 mg, Intramuscular, Every 14 days thiamine (VITAMIN B-1) 100 mg, Oral, Daily tiZANidine (ZANAFLEX) 4 mg, Oral, Nightly Allergies [...] Wan ULNAR NERVE TRANSPOSITION Left 2014 UVULOPALATOPHARYNGOPLASTY Procedure:U.P.P.P.;Disease:Trachea l stenosis Social History Tobacco Use Smoking status: Never Smokeless tobacco: Never Substance Use Topics Alcohol use: Not Currently Drug use: Never Family History Problem Relation Name Age of Onset Glaucoma Mother Diabetes Father Depression: Not on file REVIEW OF SYMPTOMS: Review of Systems Const: Denies appetite change, fever, chills. Allergy: Denies medication reaction. Ocular: Denies visual acuity change. ENT: Denies hearing change. Endoc: Denies weight loss. Resp: Denies dyspnoea, wheezing. Cardiac: Denies angina, palpitations. GI: Denies nausea, vomiting. Haem: Denies bleeding. : Denies incontinence. MSK: Denies arthralgias, joint oedema. Derm: Denies rash, hair loss. Neuro: Denies ataxia, tremor. Also see HPI for elements of ROS documented therein and for details of positive findings, which shall supersede the foregoing. OBJECTIVE: 07/03/2024 2:45 PM 03/27/2024 9:20 AM 12/29/2023 9:03 AM Vitals BMI 37.62 kg/m2 39.29 kg/m2 39.37 kg/m2 BSA (m2) 2.64 m2 2.69 m2 2.69 m2 Systolic 122 Diastolic 78 Height (in) 6' 2 6' 2 6' 2 Weight (lb) 293 306 306.6 Visit Report Report Report Report EXAM: Neurological Exam GENERAL EXAMINATION Appearance: in no acute distress, well developed, well nourished. Head: normocephalic, atraumatic. Eyes: pupils equal, round, reactive to light and accommodation. Ears: normal. Mouth: mucosa moist. Throat: clear. Neck: neck supple, full range of motion, no cervical lymphadenopathy. Skin: no suspicious lesions, warm and dry. Heart: no murmurs, regular rate and rhythm, S1, S2 normal. Lungs: clear to auscultation bilaterally. Abdomen: normal, bowel sounds present, soft, nontender, nondistended. Extremities: no clubbing, cyanosis, or edema. NEUROLOGICAL EXAMINATION Mental Status: The patient is alert and oriented to person, place, and time. Except as noted, thought content, form, and comprehension was normal. Phonation, articulation, resonance, and prosody are normal. Cranial Nerves: Pupils were 4.0 millimeters, equal, round, and reactive to light and accommodation, both directly and consensually. Visual mae were full by confrontation. There was no ptosis; extra-ocular movements were full; and there was no nystagmus. Funduscopic exam is normal. Masseters are of normal strength. Facial movement is normal. Hearing is grossly intact. There is no dysarthria. The gag reflex is equal bilaterally. Sternocleidomastoids and trapezii are of normal strength. The tongue protrudes in the midline. Motor: Muscle testing was performed in all four extremities, including at least plant and maintenance technician, finger abductors, biceps, triceps, deltoid, toe flexors and extensors, tibialis anterior, triceps surae, quadriceps femoris, biceps femoris, and iliopsoases. Tone is normal. Muscle bulk is normal. Fasciculations are not seen . Pronator drift was not evident. Sensory: Sensation to touch, temperature, and vibration was normal in the arms, legs and face. Romberg is negative. Reflexes: Biceps, triceps, brachioradialis are 2/4 bilaterally. Patellar and Achilles reflexes are 2/4 bilaterally. Plantar responses were flexor bilaterally. Coordination: Dysmetria and dysdiadochokinesia are absent. Tremor is absent; dystonia is absent; chorea is absent. Gait And Station: Station and gait are normal. Apraxia and spasticity are not evident. Arm swing is normal. Toe, heel, and tandem walking are performed without difficulty. Musculoskeletal: Trigger-point tenderness was absent. There is no spasm of the trapezii or paraspinals. PROCEDURE: NONE ASSESSMENT AND PLAN: Diagnoses and all orders for this visit: Cubital tunnel syndrome on right Cervical paraspinal muscle spasm Degeneration of intervertebral disc of lumbosacral region with discogenic back pain and lower extremity pain Narcolepsy cataplexy syndrome (CMS/HCC) Matty Garces is a 54 y.o. year old male who presents with episodes of altered levels of consciousness possibly due to seizure, syncope or most likely secondary to his Narcolepsy with cataplexyand no signs of cerebral hypoperfusion secondary to intracranial or extracranial stenosis. documented in this encounter [facility] 11-14-2024 Telephone encounter Note Pt called for refill on Zofran. [facility] Work Phone: 11-14-2024 Miscellaneous Notes Pt called for refill on Zofran. documented in this encounter [facility] 10-12-2024 Telephone encounter Note Did we send in [employer] REMS form for this patient? [facility] calls that the form we sent in had white out on the titration section on the form. They need new form without white out on it? I do not see anything in media sent and if I search patient chat. [facility] 10-12-2024 Miscellaneous Notes Did we send in [employer] REMS form for this patient? [facility] calls that the form we sent in had white out on the titration section on the form. They need new form without white out on it? I do not see anything in media sent and if I search patient chat. documented in this encounter [facility] 10-11-2024 Note Occupational Therapy Occupational Therapy Treatment [...] going to put in a elba toilet. ([employer] suggesting a RTS or to have son put in toilet however, pt stated that he will replace the toilet himself) Objective 1 Pt was up in chair at [facility] with on her way. Objective 2 [employer] provided education on home and bathroom safety. [...] endurance, Decreased functional mobility, Decreased IADLs OT Assessment/FARMER GENERAL Summary: Pt is progressing toward goals but [...] Little (Min Henrietta (more content not included)... [facility] 10-11-2024 Note Hospital Medicine Discharge Summary Final Discharge Diagnosis: Left leg cellulitis Open wound of left great toe HTN Anxiety disorder Chronic combined systolic and diastolic Congestive heart failure, NYHA II Closed fracture of right fibula and tibia Admission Diagnosis: Left leg cellulitis [L03.116] Cellulitis of right lower extremity [L03.115] Cellulitis of left leg [L03.116] Hospital course: 54-year-old male who came from [facility] due to left lower extremity cellulitis. The [...] and Vascular Surgery Dear Dr. Mil MD, Andrew is advised to follow up with you [...] Medications These medications were sent to [facility] - [place], [place] - [address] [place] [address], [place] [address] Phone (more content not included)... [facility] 10-11-2024 Note Pharmacy Dosing Serv ice - [...] questions Thank you, Sudha Camacho, PharmD, 10/11/24 [facility] 10-11-2024 Note Attestation signed by Sandrine Hahn [...] with any concerns via the Orthopaedic pager ([phone]) at any time. Jazzmine Casanova MD Orthopedic Surgery Resident, PGY 1 [facility] 10-10-2024 Note Hospital Medicine Daily Progress Note - 10/10/2024 6:40 PM; Room: 6136/6136- Admission: 10/08/2024 5:47 AM; Length of stay: 2 days THE HOSPITALIST TEAM PREFERS TO USE [employer] CHAT FOR NON-URGENT COMMUNICATION 7AM-7PM. IF I DO NOT RESPOND WITHIN 20 MINUTES OR URGENT MATTERS, PLEASE CALL THROUGH THE LINE PULLER. FROM 7PM-7AM, PLEASE PAGE [phone](COVR). Code Status: Full Code Barriers to Discharge: [...] , FREET4 , CORTISOL , FEV1 , NST2OCF , DLCO , RVSP , HDL , LDL No results found for: [id number] , IRON , TIBC , C3 , [...] c (06) PT (more content not included)... [facility] 10-10-2024 Note [facility] Vascular Surgery/Wound Care CONSULTATION Reason for Consult: [...] Patient reports that he has followed with [facility] business analyst in [place] for many years for treatment of his left great toe DFU. States that is chronic and has been minimal healing progress until recently. Patient states he would like to resume care with this [facility] business analyst at discharge. He has not been able to see [facility] f[facility] business analyst since previous discharge due to scheduling issues. [...] Ze Echevarria MD, 5 mg at 10/10/24 0820 aspirin EC tablet 81 mg, 81 mg, [...] tablet 0.5 mg, 0.5 mg, oral, Nightly, Tonya Lerner NP, 0.5 mg at 10/09/24 2230 doxazosin (Cardura) tablet 8 mg, 8 mg, oral, Nightly, Tonya Lerner NP, 8 mg at 10/09/24 2230 furosemide (Lasix) tablet 20 mg, 20 mg, oral, Daily, Tonya Lerner NP, 20 mg at 10/10/24 0820 gabapentin (Neurontin) capsule 600 mg, 600 mg, [...] file Occupational Histor (more content not included)... [facility] 10-10-2024 Note Physical Therapy Physical Therapy Treatment [...] Technique 1 S (more content not included)... [facility] 10-10-2024 Note . Pharmacy Dosing Service - [...] -Check BUN/SCr daily Altaf Martin, PharmD, 10/09/24 [facility] 10-09-2024 Note Occupational Therapy Occupational Therapy Evaluation Patient Name: Matty Garces : 1970 Today's Date: 10/09/2024 Time in:1504 Time out: 1526 Present Illness History: 54 y/o M presented from [facility] with R LE cellulitis. Patient was recently [...] Level of Function Prior Function Level of Bailey: Independent with ADLs and functional transfers, Independent [...] transfers and fu (more content not included)... [facility] 10-09-2024 Note 10/09/24 0909 Admission Assessment Questions [...] Status Interested Does the patient have a pillowcase turner assigned to them through their insurance? No Living Arrangement (Current/Prior to Hospitalization) Private residence (lives with ) Does the patient have history of C or SNF? Yes (Active with aRdha/Abdirashid [facility]) Assistive Device Wheelchair;Bedside Commode;Walker Patient's goal for discharge Home with [facility] Was patient reminded that goal for discharge is 11am? No Does the patient have transportation at discharge? Yes Type of Residence Private residence;Home care staff Is PT/OT appropriate? Yes Is PT/OT ordered? Yes Is SW consult appropriate? Yes Is SW consult ordered? Yes Do you understand the benefits of MyChart? Yes Were you able to send link and activate MyChart? No [facility] 10-09-2024 Note Hospital Medicine Daily Progress Note - 10/09/2024 12:13 PM; Room: 6136/6136-01 Admission: 10/08/2024 5:47 AM; Length of stay: 1 days THE HOSPITALIST TEAM PREFERS TO USE [employer] CHAT FOR NON-URGENT COMMUNICATION 7AM-7PM. IF I DO NOT RESPOND WITHIN 20 MINUTES OR URGENT MATTERS, PLEASE CALL THROUGH THE LINE PULLER. FROM 7PM-7AM, PLEASE PAGE [phone](COVR). Code Status: Full Code Barriers to Discharge: [...] , FREET4 , CORTISOL , FEV1 , [id number] , DLCO , RVSP , HDL , LDL No results found for: [id number] , IRON , TIBC , C3 , [...] Discharge Planning Expected Discharge Disposition: [place] [facility] [place] Discharge Recommendations: Home PT Signed C (more content not included)... [facility] 10-09-2024 Note Physical Therapy Physical Therapy Re-Evaluation Patient Name: Matty Garces : 1970 Today's Date: 10/09/2024 General Subjective: Attempted to see pt earlier today ([id number]) for mobility assessment. Pt deferred d/t pain [...] Therapeutic Exercise Therape (more content not included)... [facility] 10-09-2024 Note . Pharmacy Dosing Service - [...] -Check BUN/SCr daily Altaf Martin, PharmD, 10/09/24 [facility] 10-09-2024 Note Orthopaedic Surgery Orthopaedic Surgery Progress [...] Rivas MD Orthopaedic Surgery, PGY-2 Ortho Pager [phone] 10/09/24 6:38 AM I am available via [employer] 6a-6p. May contact the on-call resident with any concerns via the Orthopaedic pager at any time. [facility] 10-08-2024 Note Case was discussed w ith the AYAKA on 10/08/2024. I agree with the history, physical, assessment, and plan of care. I discussed the findings and therapeutic plan. I agree with the documentation, except for any updates below. Fabiola Wade DO [facility] 10-08-2024 Note Physical Therapy Ashwini lindsey Patient Name: Matty Garces Today's Date: 10/08/2024 Admit Date: 10/08/2024 Time In: 1:20pm Time Out: 1:45pm Cumulative minutes: 25 minutes Billed minutes: 25 minutes; 15 min eval; 10 min therapeutic exercise to review HEP x10 reps. History of present illness Per H&P: Matty Garces is an 54 y.o. male who came from [facility] with LLE cellulitis. Patient has PMH of hypertension, diastolic heart failure, GERD, anxiety. He recently was admitted here and had right leg tib/fib fracture and seen by our ortho team and had closed insertion with intramedullary wendy on 09/24/24 and was discharged home. He reports he went to [place] ER due to increased pain, swelling and [...] team was informed at approximately 1730 per [facility] that patient went into a-flutter and sustained for approximately 2 hours from approximately 3523-0571. Trauma team ordered a STAT ECG and [...] still state that he [facility] to [facility], [facility] paperwork reviewed and signed, patient left hospital [...] status. Objective assessment (more content not included)... [facility] 10-08-2024 Note Pharmacy Dosing Serv ice - Vancomycin Initial Consult Note Pharmacy has been consulted for the dosing and evaluation of Drug: Vancomycin Indication: complicated skin and soft tissue infection AUC 400-600 mg*hr/L and trough 10-20 mcg/mL Other Antimicrobial Regimens: cefepime Labs and Renal Function Total body weight: 134 kg (295 lb) [place]xton body weight: 82.2 kg (181 lb 3.5 [...] Comments: - 54 year old male from [place] with LLE cellulitis -Had intramedullary wendy placed [...] questions Thank you, Altaf Martin, PharmD, 10/08/24 [facility] 10-08-2024 Note Will consult wound care [facility] 10-08-2024 Note Continue vanco and z osyn Ortho following Will get blood cultures [facility] 10-08-2024 Note Continue citalopram, clonazepam [facility] 10-08-2024 Note Continue modafinil, coreg Beckijarad cantrell [facility] 10-08-2024 Note Not in exacerbation Continue furosemide, coreg, asa [facility] 10-08-2024 Note Ortho following, con cern for possible infection Admit to med surg Activity orders per ortho with LLE Cardiac diet Will get labs this morning and follow up on results Daily bmp and cbc to monitor kidney function, electrolytes, hgb and wbc Case will be discussed with attending physician [facility] 10-08-2024 Note Hospital Medicine History and Physical 10/08/2024 7:26 AM THE HOSPITALIST TEAM PREFERS TO USE [employer] FOR NON-URGENT COMMUNICATION 7AM-7PM. IF I DO NOT RESPOND WITHIN 20 MINUTES OR URGENT MATTERS, PLEASE CALL THROUGH THE LINE PULLER. FROM 7PM-7AM, PLEASE PAGE [phone](COVR). Chief Complaint Chief Complaint Patient presents with Cellulitis History of Present Illness Matty Garces is an 54 y.o. male who came from [facility] with LLE cellulitis. Patient has PMH of hypertension, diastolic heart failure, GERD, anxiety. He recently was admitted here and had right leg tib/fib fracture and seen by our ortho team and had closed insertion with intramedullary wendy on 09/24/24 and was discharged home. He reports he went to [place] ER due to increased pain, swelling and [...] congestive heart failure, NYHA class 2 (CMS/HCC) Not in exacerbation Continue furosemide, coreg, asa [...] this hospital stay by a member of [facility]. Past Medical History Past Medical History: [...] No Food Insecurity (more content not included)... [facility] 10-02-2024 Telephone encounter Note Provigil refill request to [facility] sent to provider. Last appt. 07/03/24 [facility] 10-02-2024 Miscellaneous Notes Provigil refill request to [facility] sent to provider. Last appt. 07/03/24 documented in this encounter [facility] 09-28-2024 Note Trauma team informed at approximately 1730 per [place] that patient went into a-flutter and sustained for approximately 2 hours from approximately 6490-6062. Trauma team ordered a STAT ECG and [...] tonight, AMA AMA paperwork reviewed and signed [facility] 09-28-2024 Note 09/28/24 1537 Home Oxygen Therapy Evaluation Pulse Oximetry on room air at Rest 94 Pulse Ox on room air while walking 96 Patient Qualification for home oxygen Does not qualify for home oxygen this visit (When pt is sleeping, apnea is noted and at times saturation drops but when pt is awake and moving his oxygenation is stable) [facility] 09-28-2024 Note [facility] Trauma Surgery Progress Note Subjective Patient was [...] kg (296 lb 15.4 oz) (09/28 035) [place] Coma Scale Score: 15 FiO2 (%): [50 [...] Value Ventricular Rate 82 Atrial Rate 82 ND Interval 164 QRS DURATION 92 QT Interval 386 QTC CALCULATION(BAZETT) 450 P [place] 61 R-[place] 18 T Wave [place] 69 Impression Normal sinus rhythm Normal ECG [...] PT/OT recommending walker, commode, and rolling wheelchair. [facility] 09-28-2024 Note Physical Therapy Physical Therapy Treatment [...] commode, and recliner (more content not included)... [facility] 09-28-2024 Note Occupational Therapy Occupational Therapy Treatment [...] apnea) Gastroesophageal reflux disease Obese Co-tx with LABORATORY AIDE to facilitate purposeful activity, 2/2 high fall risk, impaired dyn standing balance & act tolerance, poor safety awareness, & poor safety awareness with STS, transfers, & functional ambulation; To maintain safety of patient & staff. 09/28/24 1358 OT Last Visit OT Received On 09/28/24 General Subjective I got my w/c 3rd hand...from my [id number]. Treatment Duration (min) 55 Minutes Response to [...] not maintain precs. General Assessment Hearing mild Koi Skin Integrity ALVARO wrap to RLE, DFU to L great toe Grooming Grooming Level of Assistance Setup Grooming Where Assessed Other (Comment) (sitting on BSC) Grooming Comments to complete facial care & oral care with cues for continuation, 2/2 perseverance. UE Bathing UE Bathing Level of Assistance Setup UE Bathing Where Assessed Other (Comment) (BSC) UE Bathing Comments to complete 100% UBB sitting on BSC. Cues for continuation, 2/2 perseveration. LE Bathing LE Bathing Level of Assistance Contact guard LE Bathing Where Assessed Other (Comment) (BSC) LE Bathing Comments BLEs bathed sitting on BSC; Pt stood with device for mary lou-hygiene & required CGA to maintain balance. UE Dressing UE Dressing Level of Assistance Setup UE Dressing Where Assessed Sitting in chair UE Dressing Comments to don gown Toileting Toileting Level of Assistance Contact guard Where Assessed Bedside commode Toileting Comments CGA during mary lou-care post BM, standing at [facility]. Unsteadiness present. Static Sitting Balance Static Sitting-Balance Support Feet supported Static Sitting-Level of Assistance Distant supervision Static Sitting-Comment/Number of Minutes Supervision for safety Dynamic Sitting Balance Dynamic Sitting-Balance Support Feet supported;Unilateral upper extremity supported Dynamic Sitting Balance-Level of Assistance Close supervision Dynamic Sitting-Comments SBA for safety scooting EOB, positioning on C Static Standing Balance Static Standing-Balance Support With [...] mary lou-care & hygiene in stance at [facility] with RW. Add'l SBA for safety. Pt very unsteady with poor awareness. CGA during functional ambulation with device. Cues for safety awareness, & maintaining WB precs. Bed Mobility 1 Bed Mobility From 1 Supine Bed Mobility Type 1 To Bed Mobility to 1 Short sit Level of Assistance 1 Close superv (more content not included)... [facility] 09-28-2024 Note Called [facility] by phone to check on status of pt's DME (wheelchair, walker, bedside commode). Was advised they did not receive it via [email or web address] and would need it direct faxed to [phone]. Faxed referral and was advised they will [...] to call . UPDATE 3:05PM- Spoke with [facility] again and was advised the wheelchair could [...] discharge around 6pm tonight. Also spoke with [facility] and was provided w/ fax [phone] to send AVS once ready. UPDATE 4:05PM- Direct faxed final AVS to [facility]. [facility] 09-28-2024 Note [facility] Vascular and Wound Surgery DAILY PROGRESS NOTE [...] 7 days Lab Units 09/28/24 0358 09/27/24 03509/26/2444609/25/247 09/24/24 0355 WBC AUTO 10*3/uL 10.65* 10.21 9.63 14.37* 7.56 HEMOGLOBIN g/dL 13.7 14.0 13.6 14.1 14.1 HEMATOCRIT % 44.4 45.5 43.8 45.4 46.4 PLATELETS AUTO 10*3/uL 208 199 186 205 175 Results from last 7 days Lab Units 09/28/248 09/27/2435009/26/2444609/25/2440609/24/24 0355 SODIUM mmol/L 135* 137 139 134* [...] BID simvastatin, 20 mg, oral, Nightly Imaging: [facility] Carotid Artery Duplex Bilateral Narrative: Procedure: [...] Unchanged cardiomediastinal silho (more content not included)... [facility] 09-27-2024 Note Discharge Planning: Home with [facility] The patient was accepted by [facility]. DME referral sent to [facility]. The patient would like the DME either delivered to the hospital or his home prior to discharge. [facility] 09-27-2024 Note Occupational Therapy Occupational Therapy Treatment Patient Name: Matty Garces : 1970 Today's Date: 09/27/2024 Time in:1357 Time out:1450 Total time:53 minutes,23 min OT, additional for LABORATORY AIDE [place] provided to maximize safety as progressed [...] Edge of bed UE Dressing Comments to doff and don gown Functional Standing Tolerance Functional Standing Tolerance Comments [...] etc Transfers 2 (more content not included)... [facility] 09-27-2024 Note Physical Therapy Physical Therapy Treatment [...] for lift, balance, (more content not included)... [facility] 09-27-2024 Note Attestation signed by Fahad Rizzo MD at 09/28/2024 7:41 AM Patient seen and examined with trauma team [facility] Trauma Surgery Progress Note Subjective Patient was [...] kg (299 lb 2.6 oz) (09/27 338) [place] Coma Scale Score: 15 Intake/Output Summary (Last [...] Value Ventricular Rate 82 Atrial Rate 82 ND Interval 164 QRS DURATION 92 QT Interval 386 QTC CALCULATION(BAZETT) 450 P [place] 61 R-[place] 18 T Wave [place] 69 Impression Normal sinus rhythm Normal ECG [...] acute findings. Respiratory: (more content not included)... [facility] 09-26-2024 Note Per patients romain aaron was to start with Radha Mendenhall [facility] on the day of admit. Referral made as requested. SW following. [facility] 09-26-2024 Note [facility] Vascular and Wound Surgery DAILY PROGRESS NOTE Subjective Patient seen and examined at bedside. No acute events overnight. Vital signs stable. Denies pain to the left ulcer. Patient states he follows regularly with [facility] and plans to follow-up with [...] Results from last 7 days Lab Units 09/26/2444609/25/24 0407 09/24/24 0355 09/23/24 1212 WBC AUTO 10*3/uL 9.63 14.37* 7.56 10.56 HEMOGLOBIN g/dL 13.6 14.1 14.1 14.5 HEMATOCRIT % 43.8 45.4 46.4 47.8 PLATELETS AUTO 10*3/uL 186 205 175 188 Results from last 7 days Lab Units 09/26/247 09/25/24 0407 09/24/24 0355 09/23/24 1403 SODIUM [...] oxygen requirements. COMPARISON: (more content not included)... [facility] 09-26-2024 Note Occupational Therapy Occupational Therapy Treatment [...] on with [place] HARP's elevated Objective 2 Fire[employer] Portable Boiler discussed importance of discharging to facility for continued therapy prior to going home however, pt declines. Pt transfers are currently unsafe with development writer questioning ability to maintain WB status. [...] Other Pt is impulsive during standing/transfer activities. Firer Portable Boiler questions pts safety while at home. General [...] endurance, Decreased functional mobility, Decreased IADLs OT Assessment/FARMER GENERAL Summary: Pt would benefit from continued therapy [...] Endurance training, Patient/f (more content not included)... [facility] 09-26-2024 Note Orthopaedic Surgery Orthopaedic Surgery Progress [...] Can be reached at the orthopedic pager: [phone] Luis Felipe Rivas MD 09/26/24 7:24 AM Ortho Pager: [phone] [facility] 09-26-2024 Note [facility] Trauma Surgery Progress Note Subjective Subjective: Patient [...] 138 kg (303 lb 9.2 oz) (09/26 432) [place] Coma Scale Score: 15 Intake/Output Summary (Last [...] Value Ventricular Rate 82 Atrial Rate 82 ND Interval 164 QRS DURATION 92 QT Interval 386 QTC CALCULATION(BAZETT) 450 P [place] 61 R-[place] 18 T Wave [place] 69 Impression Normal sinus rhythm Normal ECG [...] workup -Telemetry monitori (more content not included)... [facility] 09-25-2024 Note Pt was seen early th is morning about wearing BiPap for possible sleep apnea due to periods of apnea and decreased oxygen saturation overnight. Pt refused BiPap, stating he has tried it before and it gives him migraines. Pt was agreeable to wearing a salter at night to help with oxygenation. 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 Referral Reason Follow up;Information Patient Information Primary Caregiver Spouse Activities of Daily Living Assistive Device Walker;Wheelchair Behavior Oriented Communication Talks;Understands speaking Discharge Planning Living Arrangements Spouse/significant other Support Systems Spouse/significant other Type of Residence Private residence;[facility] (await name of agency from ) Post Acute Services In home services (agreeable to [facility]) Type of Home Care Services (Current) Skilled Home Servicies;Home OT;Home PT ([facility] was just going to start services before admit) Patient's goal for discharge home with [facility] Does the patient need discharge transport arranged? No () Screened by [facility]. Pt declines SNF placement and is agreeable to take pt home with [facility]. Await name of [facility] agency that was approved to start services. Pt will likely need RT for home O2. Will follow up with pt's for [facility] agency. thinks [facility] agency is [employer] [facility] or [employer] [facility]. SW will follow with referrals. [facility] 09-25-2024 Note 09/25/24 1332 Admission Assessment Questions [...] Status Interested Does the patient have a pillowcase turner assigned to them through their insurance? No Living Arrangement (Current/Prior to Hospitalization) Private residence;Home self care Does the patient have history of HHC or SNF? Yes (pt could not remember the [facility] agency name, neither could ) Assistive Device [...] completed with , patient deferred to . [facility] 09-25-2024 Note The findings from is face to face encounter indicate the reason this patient requires a bedside commode. Patient is physically incapable of using regular toilet facilities. Patient is confined to 1 level of the home with no toilet on that level Marilou Tomlin [facility] Department of Surgery - Trauma [facility] [place] [address] 09-25-2024 Note The findings from is face [...] is provided in the home Marilou Tomlin [facility] Department of Surgery - Trauma [address] [place] [address] 09-25-2024 Note The findings from is face [...] have been discussed with the patient Marilou Sada [facility] Department of Surgery - Trauma [facility] [place] [address] 09-25-2024 Note Physical Therapy Physical Therapy Evaluation [...] male admitted 09/23/24 as a transfer from [facility] complaining of R tibial shaft transverse fx [...] demo General Assessment General Assessment Hearing: mild IONE Skin Integrity: alvaro wrap to RLE, wound [...] Level of Function Prior Function Level of Bailey: Independent with ADLs and functional transfers, Independent [...] Perception Inattention/Neglect: A (more content not included)... [facility] 09-25-2024 Note Attestation signed by Gabriel Seay [...] meet criteria for admission to IPR: Assessment: Chaves fracture of the right tibial shaft and [...] Plan of Care: Patient with diagnosis of Chaves fracture of the right tibial shaft and [...] oral, TID wit (more content not included)... [facility] 09-25-2024 Note Occupational Therapy Occupational Therapy Evaluation [...] male admitted 09/23/24 as a transfer from [facility] complaining of R tibial shaft transverse fx [...] carryover General Assessment General Assessment Hearing: Mild IONE Skin Integrity: ALVARO wrap to RLE, DFU [...] heel WB de (more content not included)... [facility] 09-25-2024 Note Orthopaedic Surgery Orthopaedic Surgery Progress [...] Rivas MD 09/25/24 7:02 AM Ortho Pager: [phone] [facility] 09-25-2024 Note [facility] Trauma Surgery Progress Note Subjective Subjective: Patient [...] (09/24 2016) Heart Rate: [73-107] 92 (09/25 0300) Resp: [8-21] 20 (09/25 0300) SpO2: [92 %-100 %] 94 % (09/25 0334) Height: [188 cm (6' 2 )] 188 cm (6' 2 ) (09/24 0952) Weight: [138 kg (304 lb 3.8 oz)-140 kg (309 lb 4.9 oz)] 140 kg (309 lb 4.9 oz) (09/25 0300) [place] Coma Scale Score: 15 Intake/Output Summary [...] Value Ventricular Rate 82 Atrial Rate 82 ND Interval 164 QRS DURATION 92 QT Interval 386 QTC CALCULATION(BAZETT) 450 P [place] 61 R-[place] 18 T Wave [place] 69 Impression Normal sinus rhythm Normal ECG [...] mary lou-colace an (more content not included)... [facility] 09-24-2024 Note [facility] Vascular Surgery/Wound Care CONSULTATION Reason for Consult: Left foot ulcer Subjective History of Present Illness: Matty Garces is a 53 y.o. male with a PMH of DM, HTN, HF and recent cellulitis to [facility] . He is admitted for transverse [...] oral, Daily, ROMAIN Acevedo, 20 mg at 09/24/24905 gabapentin (Neurontin) capsule 600 mg, 600 mg, [...] PRN, ROMAIN Acevedo, 10 mg at 09/24/24 153 oxyCODONE (Roxicodone) immediate release tablet 5 mg, 5 mg, oral, q4h PRN, ROMAIN Acevedo Oxygen Therapy, , inhalation, Continuous, ROMAIN Hernandez, Oxygen On at 09/23/242044 polyethylene glycol (Glycolax) packet 17 g, 17 g, oral, Daily, ROMAIN Acevedo sennosides-docusate sodium (Mary Lou-Colace) 8.6-50 mg per tablet 1 tablet, 1 tablet, oral, BID, ROMAIN Acevedo, 1 tablet at 09/24/24 9995 Social History Socioeconomic History Marital status: Spouse [...] Pulmonary: Effort: Pulmonar (more content not included)... [facility] 09-24-2024 Note Orthopaedic Surgery Orthopaedic Surgery Progress [...] BRO MD 09/24/24 10:29 PM Ortho Pager: [phone] [facility] 09-24-2024 Note Patient: Matty Ward Procedure Summary Date: 09/24/24 Room / Location: [facility] OPERATING ROOM 05 / [facility] Operating Room Anesthesia Start: 1020 Anesthesia Stop: [...] Hydration status: acceptable No notable events documented. [facility] 09-24-2024 Note Airway Date/Time: 09/24/2024 10:35 AM Urgency: elective General Information and Staff Patient location during procedure: OR Anesthesiologist: Jeffery Casey MD Resident/DRAG CAR RACER/CAA: Kenneth Marina MD Performed: resident/DRAG CAR RACER/CAA Indications and Patient Condition Indications for airway [...] 1 Number of other approaches attempted: 0 [facility] 09-24-2024 Note Patient: Matty Ward Procedure Information Date/Time: 09/24/24 1000 Procedure: CLOSED INSERTION, INTRAMEDULLARY WENDY, TIBIA (Right: Leg Lower) Location: [facility] OPERATING ROOM 05 / [facility] Operating Room Surgeons: Sandrine Hahn MD Relevant [...] Value Ventricular Rate 97 Atrial Rate 97 ND Interval 156 QRS DURATION 84 QT Interval 368 QTC CALCULATION(BAZETT) 467 P [place] 54 R-[place] 60 T Wave [place] 12 Impression Normal sinus rhythm Normal ECG [...] with attending and resident. Additional Equipment Requests [facility] 09-24-2024 Note Subjective Patient resting comfortably in [...] kg (304 lb 3.8 oz) (09/24 951) [place] Coma Scale Score: 15 Intake/Output Summary (Last [...] to LLE, wounds (more content not included)... [facility] 09-24-2024 Note Physical Therapy Name: Matty Garces Date of : 1970 Today's Date: 09/24/24 Pt is unable to be seen for therapy at this time secondary to Surgery today for fixation of frature. Will check back and complete therapy session as appropriate. Check No Charge Time attempted: 0759 Janet Lovelace PT, MPT [facility] 09-24-2024 Note Orthopaedic Surgery Orthopaedic Surgery Progress [...] Rivas MD Orthopaedic Surgery, PGY-2 Ortho Pager [phone] 09/24/24 7:29 AM I am available via [employer] 6a-6p. May contact the on-call resident with any concerns via the Orthopaedic pager at any time. [facility] 07-04-2024 Telephone encounter Note left message regarding prescriptions earlier today and not being at pharmacy. I did call back and spoke to advising they were sent this afternoon. had mentioned Dr. Geiger was also going to start a Vitamin B to help boost energy in the morning. [facility] [place]. [facility] 07-04-2024 Miscellaneous Notes left message regarding prescriptions earlier today and not being at pharmacy. I did call back and spoke to advising they were sent this afternoon. had mentioned Dr. Geiger was also going to start a Vitamin B to help boost energy in the morning. [facility] [place]. documented in this encounter [facility] 07-03-2024 History of Present illness Narrative Images from the original note were not included. CHIEF COMPLAINT REASON FOR VISIT: Insomnia HPI: Matty Garces is a 53 y.o. male who presents for a follow up. He states he has finally been able to walk again the 3rd week of April. He states he has [...] 1 mg, Oral, 2 times daily HYDROcodone-acetaminophen ([place]) 5-325 MG tablet hydrOXYzine pamoate (Vistaril) 25 [...] repair Dr. Wan ULNAR NERVE TRANSPOSITION Left 2015 UVULOPALATOPHARYNGOPLASTY Procedure:U.P.P.P.;Disease:Trachea l stenosis Social History Tobacco Use Smoking status: [...] reflexes: Alycia's absent. Ankle clonus absent. Coordination Ebshrc-yp-fano, rapid alternating movements and jqth-qs-lfsf normal bilaterally without dysmetria. Gait Normal casual, [...] up 3 months. documented in this encounter [facility] 03-26-2022 Note PROCEDURE: XR FOOT L [...] 2022-03-26 10:47 [facility] 02-25-2022 Hospital Discharge instructions Patient Education [...] Watch the hydrocele for any changes. Take gwoc-mgt-zuebmkb and prescription medicines only as told by [...] 02/17/2011 Document Revised: 09/10/2018 Document Reviewed: 09/10/[address] Patient Education 2020 [employer]. Follow Up Care 01/28/2022 10:36:35 With:Mitchel DELGADO, Viola Cohn, URL, URO Address: When: Unknown [facility] Evaluation + Plan note No data available for this section [facility] Evaluation note No assessment inform ation available [facility] Work Phone: Evaluation note Diagnosis [...] (adult) (pediatric) [facility] Diagnosis Projectile vomiting with nausea- Primary [facility] Diagnosis Cubital tunnel syndrome on right- Primary Cervical paraspinal muscle spasm Spasm of muscle Degeneration of intervertebral disc of lumbosacral region with discogenic back pain and lower extremity pain 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 [facility] Diagnosis Primary narcolepsy with cataplexy (CMS/HCC)- Primary Excessive daytime sleepiness Obstructive sleep apnea Obstructive sleep apnea (adult) (pediatric) [facility] No data available for this section [facility] To[facility] Summary Purpose Family History No Family History Records FoundNo Family History Records FoundNo Family History Records FoundNo Family History Records FoundNo Family History Records FoundNo Family History Records FoundNo Family History Records Found Advance Directives Advance Directive Response Recorded Date/ Time Advance Directives No May 12:42pm Advance Directive Response Recorded Date/ Time Advance Directives No May 11:42am Hospital Course Note MR#: [id number] [facility] Pt. Name: Matty Garces Admitted: [...] DATE CREATED AUTHOR 07/19/2019 [facility] DATE CREATED AUTHOR AUTHOR'S ORGANIZ ATION 02/27/2022 [facility] DATE CREATED AUTHOR AUTHOR'S ORGANIZ ATION 12/08/2022 [facility] DATE CREATED AUTHOR AUTHOR'S ORGANIZ ATION 12/03/[address] [facility] DATE CREATED AUTHOR AUTHOR'S ORGANIZ ATION 09/26/2024 [facility] DATE CREATED AUTHOR AUTHOR'S ORGANIZ ATION 10/15/2024 [facility] DATE CREATED AUTHOR AUTHOR'S ORGANIZ ATION 01/04/2025 [facility] Special[facility] Care Team (unrecognized sect ion and content) Team Status: Inactive Member Role Status Dates Trye Vallejo DPM MS Attending Provider Active Start: January 03, 2024 End: January 03, 2024 Child Care Education Coordinator Relationship Specialty Start Date End Date Venus Jaeger MD [address] [place] [address] PCP - General Family Medicine 01/10/24 Child Care Education Coordinator Relationship Specialty Start Date End Date Venus Jaegre MD [address] [place] [address] PCP - General Family Medicine 01/10/24 Child Care Education Coordinator Relationship Specialty Start Date End Date Venus Jaeger MD [address] [place] [address] PCP - General Family Medicine 01/10/24 Child Care Education Coordinator Relationship Specialty Start Date End Date Venus Jaeger MD [address] [place] [address] PCP - General Family Medicine 01/10/24 Team Status: Inactive Member Role Status Dates Trey Vallejo DPM MS Attending Provider Active Start: September 21, 2024 End: September 21, 2024 Child Care Education Coordinator Relationship Specialty Start Date End Date Venus Jaeger MD [address] [place] [address] PCP - General Family Medicine 01/10/24 Child Care Education Coordinator Relationship Specialty Start Date End Date Venus Jaeger MD [address] [place] [address] PCP - General Family Medicine 01/10/24 Child Care Education Coordinator Relationship Specialty Start Date End Date Venus Jaeger MD [address] [place] [address] PCP - General Family Medicine 01/10/24 Child Care Education Coordinator Relationship Specialty Start Date End Date Venus Jaeger MD [address] [place] [address] PCP - General Family Medicine 01/10/24 Child Care Education Coordinator Relationship Specialty Start Date End Date Venus Jaeger MD [address] [place] [address] PCP - General Family Medicine 01/10/24 Goals [...] BE BASED ON THE PRIMARY CLINICAL RECORDS. [facility]. provides no warranty or guarantee of the accuracy or completeness of information in this document.
[2025-03-06] MEDS: PIPERACILLIN SODIUM/TAZOBACTAM 3.375 GM in 0.9 % SODIUM CHLORIDE 50 ML IV (03:15)
[2025-03-06 04:23] VITALS: BP 97/58; PULSE 72; TEMP 36.9; O2SAT 67
[2025-03-06 04:24] VITALS: O2SAT 90
--- NOTE | 2025-03-06 04:25 | PC.NURSE ---
Left toe bleeding and slight drainage. Cleansed with soap and water and betadine. Telfa pad placed and wraped with curlex. Patient tolerated well
[2025-03-06 04:58] VITALS: O2SAT 67
[2025-03-06 05:00] VITALS: PULSE 81; RESP 16; O2SAT 98
[2025-03-06 05:38] LABS: Hematocrit 40.3 % (42.0-54.0); Hemoglobin 13.3 g/dL (14.0-18.0); Mean Corpuscular Hemoglobin 29.4 pg (25.9-34.0); Mean Platelet Volume 9.9 fL (9.5-13.5); Platelet Count 152 10^3/uL (150-450); Red Blood Count 4.53 10^6/uL (4.70-6.10); Red Cell Distribution Width 14.6 % (11.0-15.0); White Blood Count 6.8 10^3/uL (4.0-11.0)
[2025-03-06 05:48] LABS: Anion Gap 10.4; BUN Creatinine Ratio 16.1; Calcium 9.2 mg/dL (8.5-10.1); Chloride 105 mmol/L (98-107); Estimated GFR (African America >60 (>=60 mL/min/1.73m^2); Estimated GFR (Non-African Ame >60 (>=60 mL/min/1.73m^2); Glucose 112 mg/dL (74-106); Potassium 4.4 mmol/L (3.5-5.1); Sodium 142 mmol/L (136-145)
--- OUTSIDE RECORDS SUMMARY | 2025-03-06 07:04 | XMS_ITS | Clinical Summary ---
Author Organization [facility] Address [address] [place] [address] Care Team Providers Care Wheel Installer Name Role Phone Caden Mendez MD Primary Care Provider [phone] Christiano Geiger MD Unavailable [phone] Trey Vallejo DPM Unavailable [phone] Allergies No known active allergies Medications gabapentin (Neurontin) 600 mg tablet Take 600 mg by mouth three times daily. Active carvedilol (Coreg) 25 mg tablet Take 25 mg by mouth with breakfast and with evening meal. Active doxazosin (Cardura) 8 mg tablet Take 8 mg by mouth at bedtime. Active simvastatin (Zocor) 20 mg tablet Take 20 mg by mouth at bedtime. Active pantoprazole (ProtoNix) 40 mg EC tablet Take 40 mg by mouth before breakfast. Do not crush, chew, or split. Active glycopyrrolate (Robinul) 1 mg tablet Take 1 mg by mouth two times daily. Active furosemide (Lasix) 20 mg tablet Take 20 mg by mouth in the morning. Active potassium chloride ER (Micro-K) 10 mEq ER capsule Take 10 mEq by mouth two times daily. Do not crush or chew. Active sildenafil (Viagra) 25 mg tablet Take 25 mg by mouth if needed each day for erectile dysfunction. Active tiZANidine (Zanaflex) 4 mg capsule Take 4 mg by mouth in the evening. Active citalopram (CeleXA) 40 mg tablet Take 40 mg by mouth in the morning. Active multivitamin tablet Take 1 tablet by mouth in the morning. Active modafinil (Provigil) 200 mg tablet Take 200 mg by mouth twice a day. Active clonazePAM (KlonoPIN) 0.5 mg tablet Take 0.5 mg by mouth at bedtime. Active amantadine (Symmetrel) 100 mg capsule Take 100 mg by mouth two times daily. Active doxepin (SINEquan) 10 mg capsule Take 10 mg by mouth if needed at bedtime for sleep. Active SUMAtriptan (Imitrex) 100 mg tablet Take 100 mg by mouth 1 (one) time if needed for migraine. Active ondansetron (Zofran) 4 mg tablet Take 4 mg by mouth every 8 (eight) hours if needed for nausea or vomiting. Active meclizine (Antivert) 25 mg tablet Take 25 mg by mouth if needed in the morning, at noon, and at bedtime for dizziness. Active hydrOXYzine pamoate (Vistaril) 25 mg capsule Take 25 mg by mouth at bedtime. For insomnia Active methocarbamol 1,000 mg tabletIndicatio ns:Closed fracture of right tibia and fibula, initial encounter Take 1,000 mg by mouth if needed in the morning, at noon, and at bedtime for muscle spasms. 10 tablet 5 Active testosterone cypionate (Depo-Testoster one) 200 mg/mL injection Inject 300 mg into the shoulder, thigh, or buttocks every 14 (fourteen) days. Active amLODIPine (Norvasc) 5 mg tabletIndicatio ns:Cellulitis of left leg Take 1 tablet (5 mg) by mouth in the morning for 96 doses. 30 tablet 3 5 Active Active Problems Problem Noted Date Diagnosed Date Cellulitis of left leg 10/09/2024 Left leg cellulitis 10/08/2024 Assessment & Plan (10/08/2024 7:47 AM EST): Continue vanco and zosyn Ortho following Will get blood cultures Open wound of left great toe 10/08/2024 Assessment & Plan (10/08/2024 8:36 AM EST): Will consult wound care HTN (hypertension) 09/24/2024 Assessment & Plan (10/08/2024 7:47 AM EST): Continue modafinil, coreg PATEL (obstructive sleep apnea) 09/24/2024 Gastroesophageal reflux disease 09/24/2024 Obese 09/24/2024 Fall at home, initial encounter 09/23/2024 Closed fracture of right fibula and tibia 2024 Assessment & Plan (10/08/2024 7:47 AM EST): Ortho following, concern for possible infection Admit to med surg Activity orders per ortho with LLE Cardiac diet Will get labs this morning and follow up on results Daily bmp and cbc to monitor kidney function, electrolytes, hgb and wbc Case will be discussed with attending physician Non-ischemic cardiomyopathy 06/09/2023 Diastolic dysfunction with chronic heart failure 06/09/2023 Benign hypertensive cardiomyopathy with heart fa ilure 06/09/2023 Chronic combined systolic an d diastolic congestive heart failure, NYHA class 2 06/09/2023 Overview (06/09/2023): EF 45-50% with mild DD Assessment & Plan (10/08/2024 7:47 AM EST): Not in exacerbation Continue furosemide, coreg, asa Anxiety disorder 12/09/2005 Assessment & Plan (10/08/2024 7:47 AM EST): Continue citalopram, clonazepam Social History Tobacco Use Types Packs/Day Years Used Date Smoking Tobacco: Never Smokeless Tobacco: Never Tobacco Cessation:Counseling Given: Not Answered Alcohol Use Standard Drinks/Week Comments Yes 0 (1 standard drink = 0.6 oz pur e alcohol) monthly [facility] Utilities Answer Date Recorded In the past 12 months has [employer], [employer] [place], or water [employer] threatened to shut off services in your home? No 10/08/2024 Humiliation, Afraid, Rape, and Kick questionnair e Answer Date Recorded Within the last year, have y ou been afraid of your partner or ex-partner? No 10/08/2024 Emotionally Abused Not on file 10/08/2024 Physically Abused Not on file 10/08/2024 Sexually Abused Not on file 10/08/2024 Overall Financial Resource Strain (CARDIA) Answe r Date Recorded How hard is it for you to pa y for the very basics like food, housing, medical care, and heating? Not very hard 10/08/2024 Transportation Answer Date Recorded In the past 12 months, has l ack of transportation kept you from medical appointments or from getting medications? No 10/08/2024 Lack of Transportation (Non-Medical) Not on file 10/08/2024 Housing Stability Vital Sign Answer Isiah e Recorded In the last 12 months, was t here a time when you were not able to pay the mortgage or rent on time? No 10/08/2024 Number of Times Moved in the Last Year Not on fi le 10/08/2024 At any time in the past 12 m [facility], were you homeless or living in a mcc (including now)? No 10/08/2024 Hunger Vital Sign Answer Date Recorded Within the past 12 months, y ou worried that your food would run out before you got the money to buy more. Never true 10/08/19 25 Ran Out of Food in the Last Year Not on file 10/08/2024 Sex and Gender Information Value Date Recorded Sex Assigned at Male 09/23/2024 11:46 AM EST Legal Sex Male 10:17 PM EDT Gender Identity Male 09/23/2024 11:46 AM EST Sexual Orientation Choose not to disclose 2024 11:46 AM EST Last Filed Vital Signs Vital Sign Reading Time Taken Comments Blood Pressure 139/88 10/11/2024 6:26 AM EST Pulse 72 10/11/2024 6:26 AM EST Temperature 36.7 C (98.1 F) 10/11/2024 6:26 AM EST Respiratory Rate 20 10/11/2024 6:26 AM EST Oxygen Saturation 98% 10/11/2024 6:26 AM EST Inhaled Oxygen Concentration - - Weight 105 kg (231 lb 7.7 oz) 10/10/2024 6:57 AM EST Height 188 cm (6' 2 ) 10/08/2024 5:58 AM EST Body Mass Index 29.72 10/08/2024 5:58 AM EST Plan of Treatment Health Maintenance Due Date Last Done Comments CT Colonography 1969 Colonoscopy 1969 Colorectal Cancer Screening 1969 Diabetes: Hemoglobin A1C 1969 FIT-DNA 1969 FIT 1969 FOBT 1969 Sigmoidoscopy 1969 Diabetes: Retinopathy Screening 1979 Depression Screening 1981 Diabetes: Urine Protein Screening 1988 Hepatitis B Vaccines (1 of 3 - 19+ 3-dose series) 1988 Pneumococcal Vaccine: Pediatrics (0 to 5 Years) and At-Risk Patients (6 to 64 Years) (1 of 2 - PCV) 1988 Adult Tetanus 1991 Zoster Vaccines (1 of 2) 2019 COVID-19 Vaccine (4 - season) 2024 08/18/2021, 12/24/2020, 12/02/2020 Influenza Vaccine Completed 07/07/2024, , 07/15/2022, Additional history exists HIB Vaccines Aged Out No longer eligi ble based on patient's age to complete this topic HPV Vaccines Aged Out No longer eligi ble based on patient's age to complete this topic IPV Vaccines Aged Out No longer eligi ble based on patient's age to complete this topic Meningococcal B Vaccine Aged Out No l onger eligible based on patient's age to complete this topic Meningococcal Vaccine Aged Out No taran pablo eligible based on patient's age to complete this topic Rotavirus Vaccines Aged Out No longer eligible based on patient's age to complete this topic Medical Devices Implanted Type Area Professor Of Economics Device Identifier Shelf Expiration Date Model / Serial / Lot Tibial Nail Implanted:Qty: 1 on 09/24/2024 by Sandrine Field MD at [facility] Nail Right: [employer] 01/10/2034 04.043.145 S / / [id number] Screw Implanted:Qty: 1 on 09/24/2024 by Sandrine Field MD at [facility] Screw Right: [employer] [id number] 05/13/2034 04.045.042 S / / [id number] Screw Implanted:Qty: 1 on 09/24/2024 by Sandrine Field MD at [facility] Screw Right: [employer] [id number] 03/12/2034 04.045.044 S / / [id number] Screw Implanted:Qty: 1 on 09/24/2024 by Sandrine Field MD at [facility] Screw Right: [employer] [id number] 09/12/2033 04.045.046 S / / [id number] Screw Implanted:Qty: 1 on 09/24/2024 by Sandrine Field MD at [facility] Screw Right: [employer] [id number] 05/13/2034 04.045.034 S / / [id number] Insurance [facility] MEDICAID Advance Directives * Full Code (Latest Code Status on File) Date Activated Date Inactivated Comments 10/08/2024 7:17 AM 10/11/2024 4:47 PM * Full Code Date Activated Date Inactivated Comments 09/23/2024 1:50 PM 09/28/2024 8:43 PM Care Teams Wheel Installer Relationship Specialty Start Date End Date Caden Mendez MD [address] [facility] [place] [address] PCP - General 09/23/24 Christiano Geiger MD [address] [place] [id number] 10/11/24 Trey Vallejo DPM Address: [address] [place] [address] [place] [address] Podiatry 10/11/24
--- OUTSIDE RECORDS SUMMARY | 2025-03-06 07:04 | XMS_ITS | Referral Summary ---
Author Organization [facility] Address [address] [place] [address] Care Team Providers Care Guest Room Inspector Name Role Phone Caden Mendez MD Primary Care Provider [phone] Christiano Geiger MD Unavailable [phone] Trey Vallejo DPM Unavailable [phone] Allergies No known active allergies Medications gabapentin [...] = 0.6 oz pur e alcohol) monthly [facility] Utilities Answer Date Recorded In the past 12 months has [employer], [employer], or water [employer] threatened to shut off services in your [...] any time in the past 12 m [facility], were you homeless or living in a snf (including now)? No 10/08/2024 Hunger Vital Sign [...] 10/08/2024 5:58 AM EST Plan of Treatment Not on file Medical Devices Implanted Type Area Hall Worker Device Identifier Shelf Expiration Date Model / Serial / Lot Tibial Nail Implanted:Qty: 1 on 09/24/2024 by Sandrine Field MD at [facility] Nail Right: [employer] 01/10/2034 04.043.145 S / / [id number] Screw Implanted:Qty: 1 on 09/24/2024 by Sandrine Field MD at [facility] Screw Right: [employer] [id number] 05/13/2034 04.045.042 S / / [id number] Screw Implanted:Qty: 1 on 09/24/2024 by Sandrine Field MD at [facility] Screw Right: [employer] [id number] 03/12/2034 04.045.044 S / / [id number] Screw Implanted:Qty: 1 on 09/24/2024 by Sandrine Field MD at [facility] Screw Right: [employer] [id number] 09/12/2033 04.045.046 S / / [id number] Screw Implanted:Qty: 1 on 09/24/2024 by Sandrine Field MD at [facility] Screw Right: [employer] [id number] 05/13/2034 04.045.034 S / / [id number] Insurance [facility] MEDICAID Advance Directives * Full Code (Latest Code Status on File) Date Activated Date Inactivated Comments 10/08/2024 7:17 AM 10/11/2024 4:47 PM * Full Code Date Activated Date Inactivated Comments 09/23/2024 1:50 PM 09/28/2024 8:43 PM Care Teams Guest Room Inspector Relationship Specialty Start Date End Date Caden Mendez MD [address] [facility] [address] [address] PCP - General 09/23/24 Christiano Geiger MD [address] [facility] [address] [place] [address] 10/11/24 Trey Vallejo DPM Address: [address] [place] [address] [place] [address] Podiatry 10/11/24
--- OUTSIDE RECORDS SUMMARY | 2025-03-06 07:05 | XMS_ITS | Patient Health Record ---
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 Name Role Phone Kareem Mendez Primary Care Provider [phone] Clarisa Vallejo Unavailable [phone] Harriett Gooden Unavailable [phone] Allergies Allergen (clinical drug ingredient) Drug/Non Drug Allergy documented on EMR Reaction Allergy Type Onset Date Status hydrocodone Hydrocodone hives Drug Allergy Act silverio fentanyl Fentanyl hives Drug Allergy Active Results Component Value Reference Range Notes ALBUMIN Reviewed date:03/14/2024 10:15:23 PM Interpretation: Performing Lab: Notes/Report: [facility] , Albumin Level 3.4 3.4-5.0 g/dL Performing Lab: see note ML - [facility] LB BNP Reviewed date:03/14/2024 10:15:23 PM Interpretation: Performing Lab: Notes/Report: [facility] , NT Pro B Type Natriuretic Pept 78.0 <=900.0 pg/mL Performing Lab: see note ML - [facility] LB CBC AUTO DIFF Reviewed date:03/14/2024 10:15:23 PM Interpretation: Performing Lab: Notes/Report: [facility] , White Blood Count 10.1 4.0-11.0 10 3/uL Red Blood Count 5.75 4.70-6.10 10 6/uL Hemoglobin 15.3 14.0-18.0 g/dL Hematocrit 49.1 42.0-54.0 % Mean Corpuscular Volume 85.4 80.0-94.0 fL Mean Corpuscular Hemoglobin 26.6 25.9-34.0 pg Mean Corpuscular HGB Conc 31.2 29.9-35.2 g/dL Red Cell Distribution Width 17.1 11.0-15.0 % Platelet Count 159 150-450 10 3/uL Mean Platelet Volume 9.9 9.5-13.5 fL Neutrophils Percent Auto 78.6 43.0-75.0 % Lymphocytes Percent Auto 5.5 20.5-60.0 % Monocytes Percent Auto 11.6 1.7-12.0 % Eosinophils Percent Auto 3.0 0.9-7.0 % Basophils Percent Auto 0.6 0.2-2.0 % Immature Granulocytes Pct Auto 0.7 0.0-0.5 % Neutrophils Absolute Auto 7.9 1.4-6.5 10 3/uL Lymphocytes Absolute Auto 0.6 1.2-3.8 10 3/uL Monocytes Absolute Auto 1.2 0.3-0.8 10 3/uL Eosinophils Absolute Auto 0.3 0.0-0.7 10 3/uL Basophils Absolute Auto 0.1 0.0-0.1 10 3/uL Immature Granulocytes Abs Auto 0.07 0.00-0.03 10 3/uL Performing Lab: see note ML - [facility] LB SGOT Reviewed date:03/14/2024 10:15:23 PM Interpretation: Performing Lab: Notes/Report: [facility] , Aspartate Amino Transferase 20 15-37 U/L Performing Lab: see note - [facility] LB SGPT Reviewed date:03/14/2024 10:15:23 PM Interpretation: Performing Lab: Notes/Report: [facility] , Alanine Aminotransferase 33 16-63 U/L Performing Lab: see note ML - [facility] LB ALKALINE PHOSPHA Reviewed date:03/14/2024 10:15:23 PM Interpretation: Performing Lab: Notes/Report: [facility] , Alkaline Phosphatase 109 46-116 U/L Performing Lab: see note - [facility] LB Bilirubin Total Reviewed date:03/14/2024 10:15:23 PM Interpretation: Performing Lab: Notes/Report: [facility] , Bilirubin Total 0.7 0.2-1.0 mg/dL Performing Lab: see note ML - [facility] LB Total Protein Reviewed date:03/14/2024 10:15:23 PM Interpretation: Performing Lab: Notes/Report: [facility] , Total Protein 7.4 6.4-8.2 g/dL Performing Lab: see note ML - [facility] LB FREE T3 Reviewed date:07/07/2024 12:32:15 PM Interpretation: Performing Lab: Notes/Report: [facility] , Free T3 2.65 2.18-3.98 pg/mL Performing Lab: see note ML - [facility] LB GLYCOHEMOGLOBIN A1C Reviewed date:07/09/2024 09:11:21 PM Interpretation: Performing Lab: Notes/Report: [facility] , Glycohemoglobin A1C 5.9 4.5-6.2 % ADA RECOMMENDED LIMIT 4.0 - 6.0 ADA THERAPEUTIC TARGET < 7.0 ACTION SUGGESTED > 7.0 Estimated Average Glucose 123 Performing Lab: see note - [facility] PROF 14(COMP METB) Reviewed date:07/07/2024 12:32:15 PM Interpretation: Performing Lab: Notes/Report: [facility] , Sodium 139 136-145 mmol/L Potassium 3.8 3.5-5.1 mmol/L Chloride 100 98-107 mmol/L Carbon Dioxide 30.9 21.0-32.0 mmol/L Anion Gap 11.9 Glucose 111 74-106 mg/dL Blood Urea Nitrogen 14.0 7.0-18.0 mg/dL Creatinine 1.12 0.70-1.30 mg/dL Estimated GFR ( Elizabeth >60 >=60 mL/min/1.73m 2 Estimated GFR (Non- Gwen >60 >=60 mL/min/1.73m 2 BUN Creatinine Ratio 12.5 Calcium 9.7 8.5-10.1 mg/dL Bilirubin Total 0.7 0.2-1.0 mg/dL Aspartate Amino Transferase 18 15-37 U/L Alanine Aminotransferase 20 16-63 U/L Alkaline Phosphatase 164 46-116 U/L Total Protein 8.3 6.4-8.2 g/dL Albumin Level 3.6 3.4-5.0 g/dL Globulin 4.7 Albumin Globulin Ratio 0.8 Performing Lab: see note ML - [facility] LB T4 Reviewed date:07/07/2024 12:32:15 PM Interpretation: Performing Lab: Notes/Report: [facility] , T4 Thyroxine 6.20 4.50-12.10 ug/dL Performing Lab: see note - [facility] LB TSH Reviewed date:07/07/2024 12:32:15 PM Interpretation: Performing Lab: Notes/Report: [facility] , Thyroid Stimulating Hormone 0.944 0.358-3.740 uIU/mL Performing Lab: see note - [facility] LB Erythrocyte Sedimentation Ra te Reviewed date:08/29/2024 12:27:30 PM Interpretation: Performing Lab: Notes/Report: [facility] , Erythrocyte Sedimentation Rate 51 <=20 mm/hr Performing Lab: see note - [facility] LB US venous doppler LE BI Reviewed date:09/19/2024 07:12:29 PM Interpretation: Performing Lab: Notes/Report: Source Facility: [place] [address] [place] [address] Ultrasound Report Signed Patient: MATTY GARCES MR#: [id number] : 1970 Acct:[id number] Age/Sex: 53 / M ADM Date: 08/30/24 Loc: Attending Dr: Harriett Gooden Ordering Physician: Harriett Gooden Date of Service: 08/30/24 Procedure(s): US venous doppler LE LT Accession Number(s): [id number] cc: Venus Mendez M.D.; Harriett Gooden [place] [address] Patient Name: MATTY GARCES MRN: [id number] date: 1970 Sex: M Assigned Patient Location: Current Patient Location: Accession/Order Number: [id number] Exam Date: 08/30/2024 15:36 Report Date: 08/30/2024 16:31 At the request of: HARRIETT GOODEN Procedure: US venous doppler LE LT EXAMINATION: US venous doppler LE LT HISTORY: Left Leg Thrombosis COMPARISON: No relevant comparison available. FINDINGS: REGION: Left lower extremity THROMBI: None. COMPRESSIBILITY: Normal compressibility. FLOW: Normal waveform and antegrade flow between 5 and 20 cm/s. OTHER: None. US/US venous doppler LE LT IMPRESSION: 1. No deep vein thrombus within the left lower extremity. Electronically authenticated by: SHY DAVIS Date: 08/30/2024 16:31 Dictated By: Shy Davis M.D. Signed By: 08/30/24 1633 DD/ 1631 TD/TT: Rn Internal Medicine: [place] [address] Ultrasound Report Signed Patient: JOSEPH GARCES MR#: [id number] : 1970 Acct:[id number] Age/Sex: 53 / M ADM Date: 08/30/24 Loc: Attending Dr: Jocelyn Gooden Ordering Physician: Harriett Gooden Date of Service: 08/30/24 Procedure(s): US kamaljit ous doppler LE LT Accession Number(s): [id number] cc: Venus Mendez M.D. ; Harriett Gooden [place] [address] Patient Name: MATTY GARCES MRN: [id number] date: 1970 Sex: M Assigned Patient Location: Current Patient Loca tion: Accession/Order Numb er: [id number] Exam Date: 15:36 Report Date: 08/30/2024 16:31 At the request of: HARRIETT GOODEN Procedure: US venous doppler LE LT EXAMINATION: US veno us doppler LE LT HISTORY: Left Leg Thrombosis COMPARISON: No relev ant comparison available. FINDINGS: REGION: Left lower extremity THROMBI: None. COMPRESSIBILITY: Nor mal compressibility. FLOW: Normal wavefor m and antegrade flow between 5 and 20 cm/s. OTHER: None. U S/US venous doppler LE LT IMPRESSION: 1. No deep vein thro mbus within the left lower extremity. Electronically authenticated by: SHY DAVIS Date: 08/30/2024 16:31 Dictated By: Shy Davis M.D. Signed By: 08/30/24 1633 DD/ 163 TD/TT: Rn Internal Medicine: Venous Blood Gas Reviewed date:09/19/2024 07:12:29 PM Interpretation: Performing Lab: Notes/Report: [facility] , pH VBG 7.476 7.330-7.430 PCO2 VBG 39.3 40.0-52.0 mmHg Performing Lab: see note - [facility] LB BLOOD GASES BTY Reviewed date:09/20/2024 07:18:09 PM Interpretation: Performing Lab: Notes/Report: [facility] , pH ABG 7.353 7.350-7.450 ABG PCO2 62.0 35.0-45.0 mmHg RESULTS PHIL D TO ALEXIS MARTE RN PO2 ABG 91.6 80.0-100.0 mmHg HCO3 ABG 34.4 22.0-26.0 mmol/L Base Excess ABG 8.9 -2.0-2.0 mmol/L Oxygen Saturation ABG 97.9 Mundo Test POSITIVE POSITIVE O2 Mode BIPAP Fractionated Inspired Oxygen 35 Puncture Site LR BIPAP Pressure 18/10 Rate 14 Performing Lab: see note - [facility] LB CT angio chest Reviewed date:09/20/2024 07:18:09 PM Interpretation: Performing Lab: Notes/Report: Source Facility: [place] [address] [place] [address] CT Scan Report Signed Patient: MATTY GARCES MR#: [id number] : 1970 Acct:[id number] Age/Sex: 53 / M ADM Date: 09/19/24 Loc: ICU 270-[address]: Venus Mendez M.D. Ordering Physician: Venus Mendez M.D. Date of Service: 09/20/24 Procedure(s): CT angio chest Accession Number(s): [id number] cc: Venus Mendez M.D. [place] [address] Patient Name: MATTY GARCES MRN: [id number] date: 1970 Sex: M Assigned Patient Location: ICU Current Patient Location: ICU Accession/Order Number: [id number] Exam Date: 09/20/2024 13:15 Report Date: 09/20/2024 14:15 At the request of: VENUS MENDEZ Procedure: CT angio chest EXAMINATION: CT angio chest HISTORY: acute hypoxia COMPARISON: No relevant comparison available. TECHNIQUE: Multi-planar CT images were created with IV contrast. Axial, Coronal, and Sagittal images. Dose reduction techniques were achieved by using automated exposure control and/or adjustment of mA and/or kV according to patient size and/or use of iterative reconstruction technique. FINDINGS: LUNGS: Mild dependent opacities, atelectasis is favored. No significant pulmonary nodule or mass PLEURA: No mass, effusion, or pneumothorax. VASCULATURE: Suboptimal postcontrast opacification of the central pulmonary arterial tree with no definite filling defect to suggest a pulmonary embolus JAQUI: No mass or adenopathy. MEDIASTINUM: No mass or adenopathy. CARDIAC: No enlargement, pericardial thickening, or significant calcification. AORTA: No aneurysm or dissection. CHEST WALL: No mass or axillary adenopathy. BONES: No bone lesion or fracture. LIMITED ABDOMEN: No suspicious findings. Limited images of the upper abdomen. OTHER: Negative. CT/CT angio chest IMPRESSION: No central pulmonary thromboembolic disease Electronically authenticated by: ALVINA CAICEDO Date: 09/20/2024 14:15 Dictated By: Alvina Caicedo M.D. Signed By: 09/20/24 1418 DD/ 1415 TD/TT: Rn Internal Medicine: [place] [address] CT Scan Report Signed Patient: JOSEPH GARCES MR#: [id number] : 1970 Acct:[id number] Age/Sex: 53 / M ADM Date: 09/19/24 Loc: ICU 270-[address]: Jim Mendez M.D. Ordering Physician: Venus Mendez M.D. Date of Service: 09/20/24 Procedure(s): CT ang io chest Accession Number(s): [id number] cc: Venus Mendez M.D. The [address] [address] Patient Name: MATTY GARCES MRN: [id number] date: 1970 Sex: M Assigned Patient Location: ICU Current Patient Loca tion: ICU Accession/Order Numb er: [id number] Exam Date: 09/20/2024 13:15 Report Date: 09/20/2024 14:15 At the request of: VENUS MENDEZ Procedure: CT angio chest EXAMINATION: CT stephen o chest HISTORY: acute hypoxia COMPARISON: No relev ant comparison available. TECHNIQUE: Multi-eliane verna CT images were created with IV contrast. Axial, Coronal, and Sagitta l images. Dose reduction techniques were achieved by using automated exposure control and/or adjustment of mA and/or kV according to patient size and/or use of iterative reconstruction technique. FINDINGS: LUNGS: Mild dependen t opacities, atelectasis is favored. No significant pulmonary nodule or mass PLEURA: No mass, effusion, or pneumothorax. VASCULATURE: Subopti mal postcontrast opacification of the central pulmonary arterial tree with n o definite filling defect to suggest a pulmonary embolus JAQUI: No mass or adenopathy. MEDIASTINUM: No mass or adenopathy. CARDIAC: No enlargem ent, pericardial thickening, or significant calcification. AORTA: No aneurysm o r dissection. CHEST WALL: No mass or axillary adenopathy. BONES: No bone lesio n or fracture. LIMITED ABDOMEN: No suspicious findings. Limited images of the upper abdomen. OTHER: Negative. C T/CT angio chest IMPRESSION: No central pulmonary thromboembolic disease Electronically authenticated by: ALVINA CAICEDO Date: 09/20/2024 14:15 Dictated By: Donald Caicedo M.D. Signed By: 09/20/24 1418 DD/ 14 TD/TT: Rn Internal Medicine: PROF KYLE Roe ([facility]) Reviewed date:09/24/2024 10:37:52 AM Interpretation: Performing Lab: Notes/Report: [facility] , Sodium 142 136-145 mmol/L Potassium 3.8 3.5-5.1 mmol/L Chloride 103 98-107 mmol/L Carbon Dioxide 32.0 21.0-32.0 mmol/L Anion Gap 10.8 Glucose 111 74-106 mg/dL Blood Urea Nitrogen 5.0 7.0-18.0 mg/dL Creatinine 1.16 0.70-1.30 mg/dL Estimated GFR ( Elizabeth >60 >=60 mL/min/1.73m 2 Estimated GFR (Non- Gwen >60 >=60 mL/min/1.73m 2 BUN Creatinine Ratio 4.3 Calcium 9.0 8.5-10.1 mg/dL Performing Lab: see note ML - [facility] LB Manual Differential Reviewed date:09/24/2024 10:37:52 AM Interpretation: Performing Lab: Notes/Report: [facility] , Segmented Neutrophils % Manual 76.0 43.0-75.0 Lymphocytes Percent Manual 11.0 20.5-60.0 % Monocytes Percent Manual 9.0 1.7-12.0 % Eosinophils Percent Manual 3.0 0.9-7.0 % Basophils Percent Manual 1.0 0.2-2.0 % Segmented Neut Absolute Manual 5.39 1.4-6.5 10 3/uL Lymphocytes Absolute Manual 0.78 1.20-3.80 10 3/uL Monocytes Absolute Manual 0.63 0.30-0 .80 10 3/uL Eosinophils Absolute Manual 0.21 0.00-0.70 10 3/uL Basophils Abs Manual 0.07 0.00-0.10 1 0 3/uL Performing Lab: see note ML - [facility] LB Troponin I High Sensitivity Reviewed date:09/24/2024 10:37:52 AM Interpretation: Performing Lab: Notes/Report: [facility] , Troponin I High Sensitivity 10.0 4.0-76.1 pg/mL CUT-OFF POINTS HAVE BEEN ESTABLISHED BASED ON THE FOURTH UNIVERSAL DEFINITION OF MYOCARDIAL INFARCTION. THE UPPER REFERENCE LIMIT (URL) OF TROPONIN, DEFINED THE 99TH PERCENTILE OF cTnI DISTRIBUTION IN A REFERENCE POPULATION, HAS BEEN CONFIRMED THE DECISION THRESHOLD FOR DC DIAGNOSIS. 99TH PERCENTILE = 76.2 PG/ML NOTE: HIGH-SENSITIVITY TROPONIN ASSAY IS NOT INTENDED TO BE USED IN ISOLATION BUT SHOULD BE INTERPRETED IN CONJUNCTION WITH OTHER DIAGNOSTIC AND CLINICAL INFORMATION. Performing Lab: see note ML - [facility] LB XR tibia fibula RT 2V Reviewed date:09/24/2024 10:37:52 AM Interpretation: Performing Lab: Notes/Report: Source Facility: [facility]-[address], [place] [address] [address] XRay Report Signed Patient: MATTY GARCES MR#: [id number] : 1970 Acct:[id number] Age/Sex: 53 / M ADM Date: 09/23/24 Loc: ER Attending Dr: Ordering Physician: Crow Glass Date of Service: 09/23/24 Procedure(s): XR tibia fibula RT 2V Accession Number(s): [id number] cc: Venus Mendez M.D.; Crow Glass [place] [address] Patient Name: MATTY GARCES MRN: [facility]:[id number] date: 1970 Sex: M Assigned Patient Location: ER Current Patient Location: ED.MAIN Accession/Order Number: [id number] Exam Date: 09/23/2024 06:48 Report Date: 09/23/2024 07:22 At the request of: CROW GLASS Procedure: XR tibia fibula RT 2V Exam: Radiographs: XR tibia fibula RT 2V Reason for exam: reduction Comparison: Plain films from earlier today XR/XR tibia fibula RT 2V IMPRESSION: Acute mildly comminuted, displaced and angulated fractures of the distal right tibia and fibula diaphyses, the angulation has worsened since earlier today. Overlying splint material. Mild right knee degenerative change. Remainder of the right tibia/fibula radiographs is unremarkable. Electronically authenticated by: MICHAEL CASANOVA Date: 09/23/2024 07:22 Dictated By: Michael Casanova M.D. Signed By: 09/23/2425 DD/ 1 TD/TT: Rn Internal Medicine: [place] [address] XRay Report Signed Patient: JOSEPH GARCES MR#: [id number] : 1970 Acct:[id number] Age/Sex: 53 / M ADM Date: 09/23/24 Loc: ER Attending Dr: Ordering Physician: Crow Glass Date of Service: 09/23/24 Procedure(s): XR tib ia fibula RT 2V Accession Number(s): [id number] cc: Venus Mendez M.D. ; Crow Glass [place] [id number] Patient Name: MATTY GARCES MRN: [id number] date: 1970 Sex: M Assigned Patient Location: ER Current Patient Loca tion: ED.MAIN Accession/Order Numb er: [id number] Exam Date: 09/23/2024 06:48 Report Date: 09/23/2024 07:22 At the request of: CROW GLASS Procedure: XR tibia fibula RT 2V Exam: Radiographs: X R tibia fibula RT 2V Reason for exam: reduction Comparison: Plain fi lms from earlier today X R/XR tibia fibula RT 2V IMPRESSION: Acute mildly comminu debi, displaced and angulated fractures of the distal right tibia and fibula diaphyses, the angulation has worsened since earlier today. Overlying splint material. Mild right knee degenerative change. Remainder of the rig ht tibia/fibula radiographs is unremarkable. Electronically authenticated by: MICHAEL CASANOVA Date: 09/23/2024 07:22 Dictated By: Jack Casanova M.D. Signed By: 09/23/24724 DD/ 1 TD/TT: Rn Internal Medicine: US venous doppler LE BI Reviewed date:10/08/2024 12:37:32 PM Interpretation: Performing Lab: Notes/Report: Source Facility: [place] [address] Ultrasound Report Signed Patient: MATTY GARCES MR#: [id number] : 1970 Acct:[id number] Age/Sex: 54 / M ADM Date: 10/05/24 Loc: ER Attending Dr: Ordering Physician: Melissa Duggan Date of Service: 10/05/24 Procedure(s): US venous doppler LE RT Accession Number(s): [id number] cc: Venus Mendez M.D.; Melissa Duggan [place] [id number] Patient Name: MATTY GARCES MRN: [id number] date: 1970 Sex: M Assigned Patient Location: ER Current Patient Location: ED.MAIN Accession/Order Number: [id number] Exam Date: 10/05/2024 19:00 Report Date: 10/05/2024 20:16 At the request of: MELISSA DUGGAN Procedure: US venous doppler LE RT EXAM: US Duplex Right Lower Extremity Veins CLINICAL INDICATION: swelling post surgery TECHNIQUE: Real-time duplex ultrasound scan of the right lower extremity veins integrating B-mode two-dimensional vascular structure, Doppler spectral analysis, color flow Doppler imaging and compression. COMPARISON: No relevant prior studies available. FINDINGS: DEEP VEINS: Unremarkable. No DVT in the visualized common femoral, femoral, proximal deep femoral or popliteal veins. The veins demonstrate normal color flow, are normally compressible, with normal phasic flow and/or augmentation response. SUPERFICIAL VEINS: Unremarkable. No thrombus in the visualized great saphenous vein. SOFT TISSUES: No acute findings. No popliteal cyst. US/US venous doppler LE RT IMPRESSION: No evidence of DVT in the right lower extremity veins. Electronically authenticated by: DIOMEDES ALONSO Date: 10/05/2024 20:16 Dictated By: Diomedes Alonso M.A. Signed By: 10/05/242017 DD/ 15 TD/TT: Rn Internal Medicine: [place] [address] Ultrasound Report Signed Patient: JOSEPH GARCES MR#: [id number] : 1970 Acct:[id number] Age/Sex: 54 / M ADM Date: 10/05/24 Loc: ER Attending Dr: Ordering Physician: Melissa Duggan Date of Service: 10/05/24 Procedure(s): US kamaljit ous doppler LE RT Accession Number(s): [id number] cc: Venus Mendez M.D. ; Melissa Duggan [place] [phone] Patient Name: MATTY GARCES MRN: [id number] date: 1970 Sex: M Assigned Patient Location: ER Current Patient Loca tion: ED.MAIN Accession/Order Numb er: [id number] Exam Date: 10/05/2024 19:00 Report Date: 10/05/2024 20:16 At the request of: MELISSA DUGGAN Procedure: US venous doppler LE RT EXAM: US Duplex Righ t Lower Extremity Veins CLINICAL INDICATION: swelling post surgery TECHNIQUE: Real-time duplex ultrasound scan of the right lower extremity veins integrating B-mode two-dimensional vascular structure, Doppler spectral analysis, color flow Doppler imaging and compression. COMPARISON: No relev ant prior studies available. FINDINGS: DEEP VEINS: Unremark able. No DVT in the visualized common femoral, femoral, proximal deep femora l or popliteal veins. The veins demonstrate normal color flow, are normally compressible, with normal phasic flow and/or augmentation response. SUPERFICIAL VEINS: Unremarkable. No thrombus in the visualized great saphenous vein. SOFT TISSUES: No acu te findings. No popliteal cyst. U S/US venous doppler LE RT IMPRESSION: No evidence of DVT i n the right lower extremity veins. Electronically authenticated by: DIOMEDES ALONSO Date: 10/05/2024 20:16 Dictated By: Diomedes Alonso M.A. Signed By: 10/05/242017 DD/ 15 TD/TT: Rn Internal Medicine: JACKY tibia fibula RT 2V Reviewed date:09/24/2024 10:37:52 AM Interpretation: Performing Lab: Notes/Report: Source Facility: [place] [address] [place] [address] XRay Report Signed Patient: MATTY GARCES MR#: [id number] : 1970 Acct:[id number] Age/Sex: 53 / M ADM Date: 09/23/24 Loc: ER Attending Dr: Ordering Physician: Crow Glass Date of Service: 09/23/24 Procedure(s): XR tibia fibula RT 2V Accession Number(s): [id number] cc: Venus Mendez M.D.; Crow Glass [place] [address] Patient Name: MATTY GARCES MRN: [facility]:[id number] date: 1970 Sex: M Assigned Patient Location: ER Current Patient Location: ER Accession/Order Number: [id number] Exam Date: 09/23/2024 05:40 Report Date: 09/23/2024 06:35 At the request of: CROW GLASS Procedure: XR tibia fibula RT 2V PROCEDURE: XR tibia fibula RT 2V, XR knee RT 3V, XR ankle RT min 3V HISTORY: fall COMPARISON: None. FINDINGS: BONES:Oblique fracture through distal tibial diaphysis with 10 mm lateral displacement of the distal fragment. Comminuted fracture of the distal fibula diaphysis with angulated fragments and lateral displacement of the distal fragment one half of the bone width. Chronic separate ossification adjacent the lateral margin of the tibial plafond. Intact knee joint and ankle joint without acute abnormality or significant degenerative changes. SOFT TISSUES:Soft tissue swelling surrounding the distal lower right leg. No radiopaque foreign body. EFFUSION:None visible. OTHER: Negative. XR/XR tibia fibula RT 2V IMPRESSION: 1. Acute, displaced fractures of the distal right tibia and fibula. 2. No acute abnormality of the right knee and right ankle. Electronically authenticated by: SHY DAVIS Date: 09/23/2024 06:35 Dictated By: Shy Davis M.D. Signed By: 09/23/2438 DD/ TD/TT: Rn Internal Medicine: [place] [address] XRay Report Signed Patient: JOSEPH GARCES MR#: [id number] : 1970 Acct:[id number] Age/Sex: 53 / M ADM Date: 09/23/24 Loc: ER Attending Dr: Ordering Physician: Crow Glass Date of Service: 09/23/24 Procedure(s): XR tib ia fibula RT 2V Accession Number(s): [id number] cc: Venus Mendez M.D. ; Crow Glass [place] [phone] Patient Name: MATTY GARCES MRN: [id number] date: 1970 Sex: M Assigned Patient Location: ER Current Patient Loca tion: ER Accession/Order Numb er: [id number] Exam Date: 09/23/2024 05:40 Report Date: 09/23/2024 06:35 At the request of: CROW GLASS Procedure: XR tibia fibula RT 2V PROCEDURE: XR tibia fibula RT 2V, XR knee RT 3V, XR ankle RT min 3V HISTORY: fall COMPARISON: None. FINDINGS: BONES:Oblique fractu re through distal tibial diaphysis with 10 mm lateral displacement of the distal fragment. Comminuted fracture of the distal fibula diaphysis with angul ated fragments and lateral displacement of the distal fragment one half of the bone width. Chronic separate ossification adjacent the lateral margin of th e tibial plafond. Intact knee joint and ankle joint without acute abnormality or significant degenerative changes. SOFT TISSUES:Soft ti ssue swelling surrounding the distal lower right leg. No radiopaque foreign body. EFFUSION:None visible. OTHER: Negative. X R/XR tibia fibula RT 2V IMPRESSION: 1. Acute, displaced fractures of the distal right tibia and fibula. 2. No acute abnormal ity of the right knee and right ankle. Electronically authenticated by: SHY DAVIS Date: 09/23/2024 06:35 Dictated By: Shy Davis M.D. Signed By: 09/23/2438 DD/ TD/TT: Rn Internal Medicine: XR chest 1V Reviewed date:09/24/2024 10:37:52 AM Interpretation: Performing Lab: Notes/Report: Source Facility: [place] [address] [place] [address] XRay Report Signed Patient: MATTY GARCES MR#: [id number] : 1970 Acct:[id number] Age/Sex: 53 / M ADM Date: 09/23/24 Loc: ER Attending Dr: Ordering Physician: Crow Glass Date of Service: 09/23/24 Procedure(s): XR chest 1V Accession Number(s): [id number] cc: Venus Mendez M.D.; Crow Glass [place] [address] Patient Name: MATTY GARCES MRN: [id number] date: 1970 Sex: M Assigned Patient Location: ER Current Patient Location: ER Accession/Order Number: [id number] Exam Date: 09/23/2024 05:40 Report Date: 09/23/2024 06:35 At the request of: CROW GLASS Procedure: XR chest 1V EXAMINATION: XR chest 1V HISTORY: preop COMPARISON: No relevant comparison available. FINDINGS: LUNGS: No significant pulmonary parenchymal abnormalities. VASCULATURE: No increased pulmonary vasculature. PLEURA: No pneumothorax, effusion, or pleural thickening. CARDIAC: No cardiomegaly or cardiac silhouette abnormality. MEDIASTINUM: No visible mass or adenopathy. BONES: No fracture or visible bone lesion. OTHER: Negative. XR/XR chest 1V IMPRESSION: 1. Slightly limited by patient positioning. 2. No acute cardiopulmonary process. Electronically authenticated by: SHY DAVIS Date: 09/23/2024 06:35 Dictated By: Shy Davis M.D. Signed By: 09/23/2438 DD/ TD/TT: Rn Internal Medicine: [place] [address] XRay Report Signed Patient: JOSEPH GARCES MR#: [id number] : 1970 Acct:[id number] Age/Sex: 53 / M ADM Date: 09/23/24 Loc: ER Attending Dr: Ordering Physician: Crow Glass Date of Service: 09/23/24 Procedure(s): XR chest 1V Accession Number(s): [id number] cc: Venus Mendez M.D. ; Crow Glass [address] [address] Patient Name: MATTY GARCES MRN: [id number] date: 1970 Sex: M Assigned Patient Location: ER Current Patient Loca tion: ER Accession/Order Numb er: [id number] Exam Date: 09/23/2024 05:40 Report Date: 09/23/2024 06:35 At the request of: CROW GLASS Procedure: XR chest 1V EXAMINATION: XR chest 1V HISTORY: preop COMPARISON: No relev ant comparison available. FINDINGS: LUNGS: No significan t pulmonary parenchymal abnormalities. VASCULATURE: No incr eased pulmonary vasculature. PLEURA: No pneumotho rax, effusion, or pleural thickening. CARDIAC: No cardiome joslyn or cardiac silhouette abnormality. MEDIASTINUM: No visi ble mass or adenopathy. BONES: No fracture o r visible bone lesion. OTHER: Negative. X R/XR chest 1V IMPRESSION: 1. Slightly limited by patient positioning. 2. No acute cardiopulmonary process. Electronically authenticated by: SHY DAVIS Date: 09/23/2024 06:35 Dictated By: Shy Davis M.D. Signed By: 09/23/2438 DD/ 4 TD/TT: Rn Internal Medicine: ECG 12 lead Reviewed date:09/25/2024 08:20:56 PM Interpretation: Performing Lab: Notes/Report: Source Facility: [place] [address] Electrocardiograph Report Signed Patient: MATTY GARCES MR#: [id number] : 1970 Acct:[id number] Age/Sex: 53 / M ADM Date: 09/23/24 Loc: ER Attending Dr: Ordering Physician: Crow Glass Date of Service: 09/23/24 Procedure(s): ECG 12 lead Accession Number(s): [id number] cc: [facility] Test Date: 2024-09-23 Pat Name: MATTY GARCES Department: Room: - Gender: Male Crown Buffer: : 1970 Requested By: VENUS MENDEZ Order Number: [id number] Reading MD: VENUS MNEDEZ Measurements Intervals [place] Rate: 72 P: 43 [place]: 184 QRS: 53 QRSD: 94 T: 23 QT: 406 QTc: 429 Interpretive Statements 1100 Sinus rhythm 4068 Nonspecific Twave abnormality 9130 borderline ECG Compared to ECG 09/20/2024 13:05:52 ST (T wave) deviation no longer present Electronically Signed On 09-25-2024 8:09:26 EST by VENUS MENDEZ Dictated By: Venus Mendez M.D. Signed By: 09/25/24808 DD/ 0551 TD/TT: Rn Internal Medicine: [place] [address] Electrocardiograph Report Signed Patient: JOSEPH GARCES MR#: [id number] : 1970 Acct:[id number] Age/Sex: 53 / M ADM Date: 09/23/24 Loc: ER Attending Dr: Ordering Physician: Crow Glass Date of Service: 09/23/24 Procedure(s): ECG 12 lead Accession Number(s): [id number] cc: [facility] Test Date: 2024-09-23 Pat Name: MATTY GÓMEZ IN Department: 53 Room: - Gender: Male Crown Buffer: : 1970 Requ ested By: VENUS MENDEZ Order Number: [id number] Reading MD: VENUS MENDEZ Measurements Intervals [place] Rate: 72 P: 43 [place]: 184 QRS: 53 QRSD: 94 T: 23 QT: 406 QTc: 429 Interpretive Statements 1100 Sinus rhythm 4068 Nonspecific Twa ve abnormality 9130 borderline ECG Compared to ECG 09/20/2024 13:05:52 ST (T wave) deviatio n no longer present Electronically Donna d On 09-25-2024 8:09:26 EST by VENUS MENDEZ Dictated By: Rodo Mendez M.D. Signed By: 09/25/24808 DD/ 0551 TD/TT: Rn Internal Medicine: JACKY restrepo RT min 3V Reviewed date:09/24/2024 10:37:52 AM Interpretation: Performing Lab: Notes/Report: Source Facility: [place] [address] [place] [address] XRay Report Signed Patient: MATTY GARCES MR#: [id number] : 1970 Acct:[id number] Age/Sex: 53 / M ADM Date: 09/23/24 Loc: ER Attending Dr: Ordering Physician: Crow Glass Date of Service: 09/23/24 Procedure(s): XR ankle RT min 3V Accession Number(s): [id number] cc: Venus Mendez M.D.; Crow Glass [place] [address] Patient Name: MATTY GARCES MRN: [id number] date: 1970 Sex: M Assigned Patient Location: ER Current Patient Location: ER Accession/Order Number: [id number] Exam Date: 09/23/2024 05:40 Report Date: 09/23/2024 06:35 At the request of: CROW GLASS Procedure: XR ankle RT min 3V PROCEDURE: XR tibia fibula RT 2V, XR knee RT 3V, XR ankle RT min 3V HISTORY: fall COMPARISON: None. FINDINGS: BONES:Oblique fracture through distal tibial diaphysis with 10 mm lateral displacement of the distal fragment. Comminuted fracture of the distal fibula diaphysis with angulated fragments and lateral displacement of the distal fragment one half of the bone width. Chronic separate ossification adjacent the lateral margin of the tibial plafond. Intact knee joint and ankle joint without acute abnormality or significant degenerative changes. SOFT TISSUES:Soft tissue swelling surrounding the distal lower right leg. No radiopaque foreign body. EFFUSION:None visible. OTHER: Negative. XR/XR ankle RT min 3V IMPRESSION: 1. Acute, displaced fractures of the distal right tibia and fibula. 2. No acute abnormality of the right knee and right ankle. Electronically authenticated by: SHY DAVIS Date: 09/23/2024 06:35 Dictated By: Shy Davis M.D. Signed By: 09/23/24 0637 DD/ 0635 TD/TT: Rn Internal Medicine: [place] [address] XRay Report Signed Patient: JOSEPH GARCES MR#: [id number] : 1970 Acct:[id number] Age/Sex: 53 / M ADM Date: 09/23/24 Loc: ER Attending Dr: Ordering Physician: Crow Glass Date of Service: 09/23/24 Procedure(s): XR ank le RT min 3V Accession Number(s): [id number] cc: Venus Mendez M.D. ; Crow Glass [place] [address] Patient Name: MATTY GARCES MRN: [id number] date: 1970 Sex: M Assigned Patient Location: ER Current Patient Loca tion: ER Accession/Order Numb er: [id number] Exam Date: 09/23/2024 05:40 Report Date: 09/23/2024 06:35 At the request of: CROW GLASS Procedure: XR ankle RT min 3V PROCEDURE: XR tibia fibula RT 2V, XR knee RT 3V, XR ankle RT min 3V HISTORY: fall COMPARISON: None. FINDINGS: BONES:Oblique fractu re through distal tibial diaphysis with 10 mm lateral displacement of the distal fragment. Comminuted fracture of the distal fibula diaphysis with angul ated fragments and lateral displacement of the distal fragment one half of the bone width. Chronic separate ossification adjacent the lateral margin of th e tibial plafond. Intact knee joint and ankle joint without acute abnormality or significant degenerative changes. SOFT TISSUES:Soft ti ssue swelling surrounding the distal lower right leg. No radiopaque foreign body. EFFUSION:None visible. OTHER: Negative. X R/XR ankle RT min 3V IMPRESSION: 1. Acute, displaced fractures of the distal right tibia and fibula. 2. No acute abnormal ity of the right knee and right ankle. Electronically authenticated by: SHY DAVIS Date: 09/23/2024 06:35 Dictated By: Shy Davis M.D. Signed By: 09/23/24 0637 DD/ 0635 TD/TT: Rn Internal Medicine: XR KNEE RT 3V Reviewed date:09/24/2024 10:37:52 AM Interpretation: Performing Lab: Notes/Report: Source Facility: [facility]-[address] [place] [address] [place] [address] XRay Report Signed Patient: MATTY GARCES MR#: [id number] : 1970 Acct:[id number] Age/Sex: 53 / M ADM Date: 09/23/24 Loc: ER Attending Dr: Ordering Physician: Crow Glass Date of Service: 09/23/24 Procedure(s): XR knee RT 3V Accession Number(s): [id number] cc: Venus Mendez M.D.; Crow Glass [place] [address] Patient Name: MATTY GARCES MRN: [id number] date: 1970 Sex: M Assigned Patient Location: ER Current Patient Location: ER Accession/Order Number: [id number] Exam Date: 09/23/2024 05:40 Report Date: 09/23/2024 06:35 At the request of: CROW GLASS Procedure: XR knee RT 3V PROCEDURE: XR tibia fibula RT 2V, XR knee RT 3V, XR ankle RT min 3V HISTORY: fall COMPARISON: None. FINDINGS: BONES:Oblique fracture through distal tibial diaphysis with 10 mm lateral displacement of the distal fragment. Comminuted fracture of the distal fibula diaphysis with angulated fragments and lateral displacement of the distal fragment one half of the bone width. Chronic separate ossification adjacent the lateral margin of the tibial plafond. Intact knee joint and ankle joint without acute abnormality or significant degenerative changes. SOFT TISSUES:Soft tissue swelling surrounding the distal lower right leg. No radiopaque foreign body. EFFUSION:None visible. OTHER: Negative. XR/XR knee RT 3V IMPRESSION: 1. Acute, displaced fractures of the distal right tibia and fibula. 2. No acute abnormality of the right knee and right ankle. Electronically authenticated by: SHY DAVIS Date: 09/23/2024 06:35 Dictated By: Shy Davis M.D. Signed By: 09/23/2437 DD/ 4 TD/TT: Rn Internal Medicine: [place] [address] XRay Report Signed Patient: JOSEPH GARCES MR#: [id number] : 1970 Acct:[id number] Age/Sex: 53 / M ADM Date: 09/23/24 Loc: ER Attending Dr: Ordering Physician: Crow Glass Date of Service: 09/23/24 Procedure(s): XR kne e RT 3V Accession Number(s): [id number] cc: Venus Mendez M.D. ; Crow Glass The [address] [address] Patient Name: MATTY GARCES MRN: [id number] date: 1970 Sex: M Assigned Patient Location: ER Current Patient Loca tion: ER Accession/Order Numb er: [id number] Exam Date: 09/23/2024 05:40 Report Date: 09/23/2024 06:35 At the request of: CROW GLASS Procedure: XR knee RT 3V PROCEDURE: XR tibia fibula RT 2V, XR knee RT 3V, XR ankle RT min 3V HISTORY: fall COMPARISON: None. FINDINGS: BONES:Oblique fractu re through distal tibial diaphysis with 10 mm lateral displacement of the distal fragment. Comminuted fracture of the distal fibula diaphysis with angul ated fragments and lateral displacement of the distal fragment one half of the bone width. Chronic separate ossification adjacent the lateral margin of th e tibial plafond. Intact knee joint and ankle joint without acute abnormality or significant degenerative changes. SOFT TISSUES:Soft ti ssue swelling surrounding the distal lower right leg. No radiopaque foreign body. EFFUSION:None visible. OTHER: Negative. X R/XR knee RT 3V IMPRESSION: 1. Acute, displaced fractures of the distal right tibia and fibula. 2. No acute abnormal ity of the right knee and right ankle. Electronically authenticated by: SHY DAVIS Date: 09/23/2024 06:35 Dictated By: Shy Davis M.D. Signed By: 09/23/2437 DD/ TD/TT: Rn Internal Medicine: Erythrocyte Sedimentation Ra te Reviewed date:10/08/2024 12:37:32 PM Interpretation: Performing Lab: Notes/Report: [facility] , Erythrocyte Sedimentation Rate 69 <=20 mm/hr Performing Lab: see note ML - [facility] LB Prothrombin Time INR Reviewed date:09/24/2024 10:37:52 AM Interpretation: Performing Lab: Notes/Report: [facility] , Prothrombin Time 12.9 9.0-11.6 sec INR 1.24 DESIRED INR: 2.0-3.0 CONDITIONS NOT LISTED BELOW 2.5-3.5 FOR PROSTHETIC HEART VALVE REPLACEMENT 2.5-3.5 RECURRENT THROMBOSIS Performing Lab: see note ML - [facility] LB PTT Reviewed date:09/24/2024 10:37:52 AM Interpretation: Performing Lab: Notes/Report: [facility] , Partial Thromboplastin Time 28.7 22.3-36.2 sec Performing Lab: see note ML - [facility] LB BNP Reviewed date:03/05/2025 09:30:34 PM Interpretation: Performing Lab: Notes/Report: [facility] , NT Pro B Type Natriuretic Pept 170.0 <=900.0 pg/mL Performing Lab: see note ML - [facility] LB CBC AUTO DIFF Reviewed date:03/05/2025 09:30:34 PM Interpretation: Performing Lab: Notes/Report: [facility] , White Blood Count 6.7 4.0-11.0 10 3/uL Red Blood Count 4.81 4.70-6.10 10 6/uL Hemoglobin 14.0 14.0-18.0 g/dL Hematocrit 41.9 42.0-54.0 % Mean Corpuscular Volume 87.1 80.0-94.0 fL Mean Corpuscular Hemoglobin 29.1 25.9-34.0 pg Mean Corpuscular HGB Conc 33.4 29.9-35.2 g/dL Red Cell Distribution Width 14.5 11.0-15.0 % Platelet Count 156 150-450 10 3/uL Mean Platelet Volume 9.6 9.5-13.5 fL Neutrophils Percent Auto 73.6 43.0-75.0 % Lymphocytes Percent Auto 13.4 20.5-60.0 % Monocytes Percent Auto 10.5 1.7-12.0 % Eosinophils Percent Auto 1.1 0.9-7.0 % Basophils Percent Auto 0.6 0.2-2.0 % Immature Granulocytes Pct Auto 0.8 0.0-0.5 % Neutrophils Absolute Auto 4.9 1.4-6.5 10 3/uL Lymphocytes Absolute Auto 0.9 1.2-3.8 10 3/uL Monocytes Absolute Auto 0.7 0.3-0.8 10 3/uL Eosinophils Absolute Auto 0.1 0.0-0.7 10 3/uL Basophils Absolute Auto 0.0 0.0-0.1 10 3/uL Immature Granulocytes Abs Auto 0.05 0.00-0.03 10 3/uL Performing Lab: see note - [facility] LACTATE or LACTIC ACID Reviewed date:03/05/2025 09:30:34 PM Interpretation: Performing Lab: Notes/Report: [facility] , Lactate/Lactic Acid 1.2 0.4-2.0 mmol/L Performing Lab: see note [facility] PROF 14(COMP METB) Reviewed date:03/05/2025 09:30:34 PM Interpretation: Performing Lab: Notes/Report: [facility] , Sodium 140 136-145 mmol/L Potassium 4.1 3.5-5.1 mmol/L Chloride 101 98-107 mmol/L Carbon Dioxide 32.4 21.0-32.0 mmol/L Anion Gap 10.7 Glucose 101 74-106 mg/dL Blood Urea Nitrogen 13.0 7.0-18.0 mg/dL Creatinine 0.88 0.70-1.30 mg/dL Estimated GFR ( Elizabeth >60 >=60 mL/min/1.73m 2 Estimated GFR (Non- Gwen >60 >=60 mL/min/1.73m 2 BUN Creatinine Ratio 14.8 Calcium 10.0 8.5-10.1 mg/dL Bilirubin Total 0.6 0.2-1.0 mg/dL Aspartate Amino Transferase 19 15-37 U/L Alanine Aminotransferase 21 16-63 U/L Alkaline Phosphatase 244 46-116 U/L Total Protein 8.1 6.4-8.2 g/dL Albumin Level 3.5 3.4-5.0 g/dL Globulin 4.6 Albumin Globulin Ratio 0.8 Performing Lab: see note ML - [facility] PTT Reviewed date:03/05/2025 09:30:34 PM Interpretation: Performing Lab: Notes/Report: [facility] , Partial Thromboplastin Time 35.3 22.3-36.2 sec Performing Lab: see note - [facility] LB Prothrombin Time INR Reviewed date:03/05/2025 09:30:34 PM Interpretation: Performing Lab: Notes/Report: [facility] , Prothrombin Time 12.7 9.0-11.6 sec INR 1.22 DESIRED INR: 2.0-3.0 CONDITIONS NOT LISTED BELOW 2.5-3.5 FOR PROSTHETIC HEART VALVE REPLACEMENT 2.5-3.5 RECURRENT THROMBOSIS Performing Lab: see note ML - [facility] LB Troponin I High Sensitivity Reviewed date:03/05/2025 09:30:34 PM Interpretation: Performing Lab: Notes/Report: [facility] , Troponin I High Sensitivity 7.3 4.0-76.1 pg/mL CUT-OFF POINTS HAVE BEEN ESTABLISHED BASED ON THE FOURTH UNIVERSAL DEFINITION OF MYOCARDIAL INFARCTION. THE UPPER REFERENCE LIMIT (URL) OF TROPONIN, DEFINED THE 99TH PERCENTILE OF cTnI DISTRIBUTION IN A REFERENCE POPULATION, HAS BEEN CONFIRMED THE DECISION THRESHOLD FOR DC DIAGNOSIS. 99TH PERCENTILE = 76.2 PG/ML NOTE: HIGH-SENSITIVITY TROPONIN ASSAY IS NOT INTENDED TO BE USED IN ISOLATION BUT SHOULD BE INTERPRETED IN CONJUNCTION WITH OTHER DIAGNOSTIC AND CLINICAL INFORMATION. Performing Lab: see note ML - [facility] LB XR ankle RT min 3V Reviewed date:03/05/2025 08:19:57 PM Interpretation: Performing Lab: Notes/Report: Source Facility: [place] [address] XRay Report Signed Patient: MATTY GARCES MR#: [id number] : 1970 Acct:[id number] Age/Sex: 54 / M ADM Date: 03/05/25 Loc: ER Attending Dr: Ordering Physician: Jess Ryan Date of Service: 03/05/25 Procedure(s): XR ankle RT min 3V Accession Number(s): [id number] cc: Jess Ryan; Venus Mendez M.D. [place] [address] Patient Name: MATTY GARCES MRN: [id number] date: 1970 Sex: M Assigned Patient Location: ER Current Patient Location: ER Accession/Order Number: [id number] Exam Date: 03/05/2025 18:27 Report Date: 03/05/2025 18:33 At the request of: JESS RYAN Procedure: XR ankle RT min 3V XR ankle RT min 3V 03/05/2025 5:53 PM SIGNS AND SYMPTOMS: Right ankle pain PROTOCOL: Frontal, lateral, and oblique radiographs of the right ankle COMPARISON: 09/23/2024 FINDINGS: There is evidence of interval hardware fixation of the distal tibial fracture. No hardware complications. There is a healing fracture of the distal fibula. Remote bony fragments are separate from the distal fibula. The ankle mortise is intact. There is diffuse soft tissue swelling. There is achilles surface calcaneal spurring. There is a similar linear radiodense foreign body in the soft tissues along the second and third metatarsals. XR/XR ankle RT min 3V IMPRESSION: No acute bony injury. Diffuse soft tissue swelling is noted. There is evidence of interval hardware fixation of the distal tibial fracture. No hardware complications. There is a healing fracture of the distal fibula. There is a similar linear radiodense foreign body in the soft tissues along the second and third metatarsals. Impression dictated by: Francis Irving M.D. 03/05/2025 6:33 PM Dictation Location: [place] [address] Electronically authenticated by: [id number] Y Date: 03/05/2025 18:33 Dictated By: Francis Irving M.D. Signed By: 03/05/251835 DD/ 32 TD/TT: Rn Internal Medicine: [place] [address] XRay Report Signed Patient: JOSEPH GARCES MR#: [id number] : 1970 Acct:[id number] Age/Sex: 54 / M ADM Date: 03/05/25 Loc: ER Attending Dr: Ordering Physician: Jess Ryan Date of Service: 03/05/25 Procedure(s): XR ank le RT min 3V Accession Number(s): [id number] cc: Jess Ryan; Venus Mendez M.D. [address] [address] Patient Name: MATTY GARCES MRN: [id number] date: 1970 Sex: M Assigned Patient Location: ER Current Patient Loca tion: ER Accession/Order Numb er: [id number] Exam Date: 03/05/2025 18:27 Report Date: 03/05/2025 18:33 At the request of: JESS RYAN Procedure: XR ankle RT min 3V XR ankle RT min 3V 03/05/2025 5:53 PM SIGNS AND SYMPTOMS: Right ankle pain PROTOCOL: Frontal, lateral, and oblique radiographs of the right ankle COMPARISON: 09/23/2024 FINDINGS: There is evidence of interval hardware fixation of the distal tibial fracture. No hardware complications. There is a healing fracture of the distal fibula. Remote bony fragment s are separate from the distal fibula. The ankle mortise is intact. There is diffuse soft tissue swelling. There is achilles surface calcaneal spurring. There is a similar linear radiodense foreign body in the soft tissues along t he second and third metatarsals. X R/XR ankle RT min 3V IMPRESSION: No acute bony injury. Diffuse soft tissue swelling is noted. There is evidence of interval hardware fixation of the distal tibial fracture. No hardware complications. There is a healing fracture of the distal fibula. There is a similar l inear radiodense foreign body in the soft tissues along the second and third metatarsals. Impression dictated by: Francis Irving M.D. 03/05/2025 6:33 PM Dictation Location: [place] [address] Electronically authenticated by: [id number] Y Date: 03/05/2025 18:33 Dictated By: Francis Irving M.D. Signed By: 03/05/251835 DD/ 32 TD/TT: Rn Internal Medicine: ECG 12 lead Reviewed date:03/05/2025 09:30:34 PM Interpretation: Performing Lab: Notes/Report: Source Facility: [place] [address] [place] [address] Electrocardiograph Report Draft Patient: MATTY GARCES MR#: [id number] : 1970 Acct:[id number] Age/Sex: 54 / M ADM Date: 03/05/25 Loc: ER Attending Dr: Ordering Physician: Jess Ryan Date of Service: 03/05/25 Procedure(s): ECG 12 lead Accession Number(s): [id number] cc: [facility] Test Date: 2025-03-05 Pat Name: MATTY GARCES Department: Room: - Gender: Male Crown Buffer: : 1970 Requested By: 0923 Order Number: [id number] Reading MD: Measurements Intervals [place] Rate: 76 P: 60 [place]: 178 QRS: 69 QRSD: 100 T: 46 QT: 406 QTc: 437 Interpretive Statements 1100 Sinus rhythm 0102 ARTIFACT PRESENT 9110 normal ECG No previous ECG available for comparison Dictated By: Hannah Rodriguez Signed By: DD/ 06 TD/TT: Rn Internal Medicine: [place] [address] Electrocardiograph Report Draft Patient: JOSEPH GARCES MR#: [id number] : 1970 Acct:[id number] Age/Sex: 54 / M ADM Date: 03/05/25 Loc: ER Attending Dr: Ordering Physician: Jess Ryan Date of Service: 03/05/25 Procedure(s): ECG 12 lead Accession Number(s): [id number] cc: [facility] Test Date: 2025-03-05 Pat Name: MATTY GÓMEZ CELENA Department: 53 Room: - Gender: Male Crown Buffer: : 1970 Requ ested By: 0923 Order Number: [id number] Reading MD: Measurements Intervals [place] Rate: 76 P: 60 [place]: 178 QRS: 69 QRSD: 100 T: 46 QT: 406 QTc: 437 Interpretive Statements 1100 Sinus rhythm 0102 ARTIFACT PRESENT 9110 normal ECG No previous ECG avai lable for comparison Dictated By: Hannah Rodriguez Signed By: DD/ 06 TD/TT: Rn Internal Medicine: CHEM 8 (BAS METB) (Not yet reviewed by provider) Interpretation: Performing Lab: Notes/Report: [facility] , Sodium 142 136-145 mmol/L Potassium 4.4 3.5-5.1 mmol/L Chloride 105 98-107 mmol/L Carbon Dioxide 31.0 21.0-32.0 mmol/L Anion Gap 10.4 Glucose 112 74-106 mg/dL Blood Urea Nitrogen 14.0 7.0-18.0 mg/dL Creatinine 0.87 0.70-1.30 mg/dL Estimated GFR ( Elizabeth >60 >=60 mL/min/1.73m 2 Estimated GFR (Non- Gwen >60 >=60 mL/min/1.73m 2 BUN Creatinine Ratio 16.1 Calcium 9.2 8.5-10.1 mg/dL Performing Lab: see note - [facility] CBC no Diff (Hemogram) (Not yet reviewed by provider) Interpretation: Performing Lab: Notes/Report: [facility] , White Blood Count 6.8 4.0-11.0 10 3/uL Red Blood Count 4.53 4.70-6.10 10 6/uL Hemoglobin 13.3 14.0-18.0 g/dL Hematocrit 40.3 42.0-54.0 % Mean Corpuscular Volume 89.0 80.0-94.0 fL Mean Corpuscular Hemoglobin 29.4 25.9-34.0 pg Mean Corpuscular HGB Conc 33.0 29.9-35.2 g/dL Red Cell Distribution Width 14.6 11.0-15.0 % Platelet Count 152 150-450 10 3/uL Mean Platelet Volume 9.9 9.5-13.5 fL Performing Lab: see note - [facility] CBC AUTO DIFF Reviewed date:09/24/2024 10:37:52 AM Interpretation: Performing Lab: Notes/Report: [facility] , White Blood Count 7.1 4.0-11.0 10 3/uL Red Blood Count 5.40 4.70-6.10 10 6/uL Hemoglobin 14.5 14.0-18.0 g/dL Hematocrit 47.2 42.0-54.0 % Mean Corpuscular Volume 87.4 80.0-94.0 fL Mean Corpuscular Hemoglobin 26.9 25.9-34.0 pg Mean Corpuscular HGB Conc 30.7 29.9-35.2 g/dL Red Cell Distribution Width 15.6 11.0-15.0 % Platelet Count 180 150-450 10 3/uL Mean Platelet Volume 9.6 9.5-13.5 fL Performing Lab: see note ML - [facility] VANCOMYCIN TROUGH Reviewed date:09/24/2024 10:37:52 AM Interpretation: Performing Lab: Notes/Report: [facility] , Vancomycin Trough 22.4 5.0-20.0 ug/mL Performing Lab: see note ML - [facility] LB PROF CHEM 8 (BAS METB) Reviewed date:09/24/2024 10:37:52 AM Interpretation: Performing Lab: Notes/Report: [facility] , Sodium 140 136-145 mmol/L Potassium 3.7 3.5-5.1 mmol/L Chloride 102 98-107 mmol/L Carbon Dioxide 32.1 21.0-32.0 mmol/L Anion Gap 9.6 Glucose 116 74-106 mg/dL Blood Urea Nitrogen 7.0 7.0-18.0 mg/dL Creatinine 1.01 0.70-1.30 mg/dL Estimated GFR ( Elizabeth >60 >=60 mL/min/1.73m 2 Estimated GFR (Non- Gwen >60 >=60 mL/min/1.73m 2 BUN Creatinine Ratio 6.9 Calcium 8.9 8.5-10.1 mg/dL Performing Lab: see note ML - [facility] LB CRP Reviewed date:09/24/2024 10:37:52 AM Interpretation: Performing Lab: Notes/Report: [facility] , C Reactive Protein 0.89 <=0.50 mg/dL Performing Lab: see note ML - [facility] LB CBC AUTO DIFF Reviewed date:09/24/2024 10:37:52 AM Interpretation: Performing Lab: Notes/Report: [facility] , White Blood Count 6.4 4.0-11.0 10 3/uL Red Blood Count 5.52 4.70-6.10 10 6/uL Hemoglobin 14.6 14.0-18.0 g/dL Hematocrit 47.8 42.0-54.0 % Mean Corpuscular Volume 86.6 80.0-94.0 fL Mean Corpuscular Hemoglobin 26.4 25.9-34.0 pg Mean Corpuscular HGB Conc 30.5 29.9-35.2 g/dL Red Cell Distribution Width 15.2 11.0-15.0 % Platelet Count 186 150-450 10 3/uL Mean Platelet Volume 9.8 9.5-13.5 fL Neutrophils Percent Auto 72.0 43.0-75.0 % Lymphocytes Percent Auto 13.2 20.5-60.0 % Monocytes Percent Auto 10.7 1.7-12.0 % Eosinophils Percent Auto 1.9 0.9-7.0 % Basophils Percent Auto 0.8 0.2-2.0 % Immature Granulocytes Pct Auto 1.4 0.0-0.5 % Neutrophils Absolute Auto 4.6 1.4-6.5 10 3/uL Lymphocytes Absolute Auto 0.8 1.2-3.8 10 3/uL Monocytes Absolute Auto 0.7 0.3-0.8 10 3/uL Eosinophils Absolute Auto 0.1 0.0-0.7 10 3/uL Basophils Absolute Auto 0.1 0.0-0.1 10 3/uL Immature Granulocytes Abs Auto 0.09 0.00-0.03 10 3/uL Performing Lab: see note - [facility] LB Box Test Reviewed date:09/24/2024 05:28:36 PM Interpretation: Performing Lab: Notes/Report: WOUND CULTURE L GREAT TOE [facility] , BOX Test Sent Out WOUND CULTURE BOX Test Reference Lab [facility] B[facility] Test Date Sent 09/21/24 BOX Test Result SEE SCANNED REPORT Performing Lab: see note [facility] LB PROF CHEM 8 (BAS METB) Reviewed date:09/21/2024 01:02:57 PM Interpretation: Performing Lab: Notes/Report: [facility] , Sodium 140 136-145 mmol/L Potassium 3.6 3.5-5.1 mmol/L Chloride 101 98-107 mmol/L Carbon Dioxide 36.8 21.0-32.0 mmol/L Anion Gap 5.8 Glucose 113 74-106 mg/dL Blood Urea Nitrogen 6.0 7.0-18.0 mg/dL Creatinine 1.21 0.70-1.30 mg/dL Estimated GFR ( Elizabeth >60 >=60 mL/min/1.73m 2 Estimated GFR (Non- Gwen >60 >=60 mL/min/1.73m 2 BUN Creatinine Ratio 5.0 Calcium 8.8 8.5-10.1 mg/dL Performing Lab: see note ML - [facility] LB CRP Reviewed date:09/21/2024 01:02:57 PM Interpretation: Performing Lab: Notes/Report: [facility] , C Reactive Protein 1.65 <=0.50 mg/dL Performing Lab: see note - [facility] LB Troponin I High Sensitivity Reviewed date:09/20/2024 07:18:09 PM Interpretation: Performing Lab: Notes/Report: [facility] , Troponin I High Sensitivity 7.2 4.0-76.1 pg/mL CUT-OFF POINTS HAVE BEEN ESTABLISHED BASED ON THE FOURTH UNIVERSAL DEFINITION OF MYOCARDIAL INFARCTION. THE UPPER REFERENCE LIMIT (URL) OF TROPONIN, DEFINED THE 99TH PERCENTILE OF cTnI DISTRIBUTION IN A REFERENCE POPULATION, HAS BEEN CONFIRMED THE DECISION THRESHOLD FOR DC DIAGNOSIS. 99TH PERCENTILE = 76.2 PG/ML NOTE: HIGH-SENSITIVITY TROPONIN ASSAY IS NOT INTENDED TO BE USED IN ISOLATION BUT SHOULD BE INTERPRETED IN CONJUNCTION WITH OTHER DIAGNOSTIC AND CLINICAL INFORMATION. Performing Lab: see note - [facility] LB CT soft tissue neck w con Reviewed date:09/20/2024 07:18:09 PM Interpretation: Performing Lab: Notes/Report: Source Facility: [place] [address] [place] [address] CT Scan Report Signed Patient: MATTY GARCES MR#: [id number] : 1970 Acct:[id number] Age/Sex: 53 / M ADM Date: 09/19/24 Loc: ICU 270-[address]: Venus Mendez M.D. Ordering Physician: Venus Mendez M.D. Date of Service: 09/20/24 Procedure(s): CT soft tissue neck w con Accession Number(s): [id number] cc: Venus Mendez M.D. [place] [address] Patient Name: MATTY GARCES MRN: [id number] date: 1970 Sex: M Assigned Patient Location: ICU Current Patient Location: ICU Accession/Order Number: [id number] Exam Date: 09/20/2024 13:15 Report Date: 09/20/2024 14:56 At the request of: VENUS MENDEZ Procedure: CT soft tissue neck w con EXAM: CT NECK WITH CONTRAST, 09/20/2024. HISTORY: Hypoxia. COMPARISON: CT cervical spine, 12/06/2022. TECHNIQUE: Postcontrast axial CT images obtained through the neck. Reconstructions obtained in the sagittal and coronal planes. Dose reduction techniques were achieved by using automated exposure control and/or adjustment of mA and/or kV according to patient size and/or use of iterative reconstruction technique. FINDINGS: The visualized intracranial contents are unremarkable. Paranasal sinuses are clear. Masseters are clear. Skull base intact. B[employer]ai [employer]ist spaces are normal. The parotid glands are normal. Submandibular glands are normal. The tongue and floor of the mouth are normal. Nasopharynx is normal. Oropharynx and retropharyngeal space appear normal. Epiglottis normal. The vocal cords are symmetric. No laryngeal edema. The thyroid gland is normal. Visualized portion of the trachea and esophagus unremarkable. No carotid artery stenosis. Internal jugular veins are normal. No lymphadenopathy. No masses. Lung apices are clear. Previous anterior discectomy and fusion at C5-C6 and C6-C7. No suspicious osseous lesion. CT/CT soft tissue neck w con IMPRESSION: 1. No neck masses or lymphadenopathy. 2. No laryngeal edema. Epiglottis and pharyngeal structures are unremarkable. No acute findings in the neck. Electronically authenticated by: EZEQUIEL LEMUS Date: 09/20/2024 14:56 Dictated By: Ezequiel Lemus M.D. Signed By: 09/20/24 1458 DD/ 1456 TD/TT: Rn Internal Medicine: [place] [address] CT Scan Report Signed Patient: JOSEPH GARCES MR#: [id number] : 1970 Acct:[id number] Age/Sex: 53 / M ADM Date: 09/19/24 Loc: ICU 270-[address]: Jim Mendez M.D. Ordering Physician: Venus Mendez M.D. Date of Service: 09/20/24 Procedure(s): CT sof t tissue neck w con Accession Number(s): [id number] cc: Venus Mendez M.D. The [place] [id number] Patient Name: MATTY GARCES MRN: [id number] date: 1970 Sex: M Assigned Patient Location: ICU Current Patient Loca tion: ICU Accession/Order Numb er: [id number] Exam Date: 09/20/2024 13:15 Report Date: 09/20/2024 14:56 At the request of: VENUS MENDEZ Procedure: CT soft t issue neck w con EXAM: CT NECK WITH CONTRAST, 09/20/2024. HISTORY: Hypoxia. COMPARISON: CT cervi shira spine, 12/06/2022. TECHNIQUE: Postcontr ast axial CT images obtained through the neck. Reconstructions obta ined in the sagittal and coronal planes. Dose reduction techniques were achi eved by using automated exposure control and/or adjustment of mA and/or kV acco rding to patient size and/or use of iterative reconstruction technique. FINDINGS: The visual ized intracranial contents are unremarkable. Paranasal sinuses are clear. Masseters are clear. Skull base intact. Bonsai Culturist spaces are normal. The paro tid glands are normal. Submandibular glands are normal. The tongue and floor of the mouth are normal. Nasopharynx is анна l. Oropharynx and retropharyngeal space appear normal. Epiglottis normal. T he vocal cords are symmetric. No laryngeal edema. The thyroid gland is nor mal. Visualized portion of the trachea and esophagus unremarkable. No car otid artery stenosis. Internal jugular veins are normal. No lymphadenopathy. No masses. Lung apices are clear. Previous anterior discectomy and fusion at C5-C6 and C6-C7. No suspicious osseous lesion. C T/CT soft tissue neck w con IMPRESSION: 1. No neck masses or lymphadenopathy. 2. No laryngeal amadou a. Epiglottis and pharyngeal structures are unremarkable. No acute findings in the neck. Electronically authenticated by: EZEQUIEL LEMUS Date: 09/20/2024 14:56 Dictated By: Sarah Lemus M.D. Signed By: 09/20/24 1458 DD/ 1456 TD/TT: Rn Internal Medicine: ECG 12 lead Reviewed date:09/21/2024 09:07:03 PM Interpretation: Performing Lab: Notes/Report: Source Facility: [place] [address] [place] [address] Electrocardiograph Report Signed Patient: MATTY GARCES MR#: [id number] : 1970 Acct:[id number] Age/Sex: 53 / M ADM Date: 09/19/24 Loc: ICU [address]: Venus Mendez M.D. Ordering Physician: Venus Mendez M.D. Date of Service: 09/20/24 Procedure(s): ECG 12 lead Accession Number(s): [id number] cc: [facility] Test Date: 2024-09-20 Pat Name: MATTY GARCES Department: Room: [facility] Gender: Male Crown Buffer: : 1970 Requested By: VENUS MENDEZ Order Number: [id number] Reading MD: KENNETH ROWE Measurements Intervals [place] Rate: 67 P: 54 [place]: 186 QRS: 62 QRSD: 94 T: 31 QT: 394 QTc: 409 Interpretive Statements [address]/T wave changes Electronically Signed On 09-21-2024 20:51:20 EST by KENNETH ROWE Dictated By: Kenneth Rowe D.O. Signed By: 09/21/242050 DD/ 1305 TD/TT: Rn Internal Medicine: [place] [address] Electrocardiograph Report Signed Patient: JOSEPH GARCES MR#: [id number] : 1970 Acct:[id number] Age/Sex: 53 / M ADM Date: 09/19/24 Loc: ICU [address]: Jim Mendez M.D. Ordering Physician: Venus Mendez M.D. Date of Service: 09/20/24 Procedure(s): ECG 12 lead Accession Number(s): [id number] cc: [facility] Test Date: 2024-09-20 Pat Name: MATTY GÓMEZ IN Department: 53 Room: [facility] Gender: Male Crown Buffer: : 1970 Requ ested By: VENUS MENDEZ Order Number: [id number] Reading MD: KENNETH ROWE Measurements Intervals [place] Rate: 67 P: 54 [place]: 186 QRS: 62 QRSD: 94 T: 31 QT: 394 QTc: 409 Interpretive Statements [address] N[address] ST/T wav e changes Electronically Donna d On 09-21-2024 20:51:20 EST by KENNETH ROWE Dictated By: Kenneth Rowe D.O. Signed By: 09/21/242050 DD/ 130 TD/TT: Rn Internal Medicine: Troponin I High Sensitivity Reviewed date:09/20/2024 07:18:09 PM Interpretation: Performing Lab: Notes/Report: [facility] , Troponin I High Sensitivity 6.2 4.0-76.1 pg/mL CUT-OFF POINTS HAVE BEEN ESTABLISHED BASED ON THE FOURTH UNIVERSAL DEFINITION OF MYOCARDIAL INFARCTION. THE UPPER REFERENCE LIMIT (URL) OF TROPONIN, DEFINED THE 99TH PERCENTILE OF cTnI DISTRIBUTION IN A REFERENCE POPULATION, HAS BEEN CONFIRMED THE DECISION THRESHOLD FOR DC DIAGNOSIS. 99TH PERCENTILE = 76.2 PG/ML NOTE: HIGH-SENSITIVITY TROPONIN ASSAY IS NOT INTENDED TO BE USED IN ISOLATION BUT SHOULD BE INTERPRETED IN CONJUNCTION WITH OTHER DIAGNOSTIC AND CLINICAL INFORMATION. Performing Lab: see note ML - [facility] LB PROF 14(COMP METB) Reviewed date:09/20/2024 07:18:09 PM Interpretation: Performing Lab: Notes/Report: [facility] , Sodium 142 136-145 mmol/L Potassium 4.0 3.5-5.1 mmol/L Chloride 102 98-107 mmol/L Carbon Dioxide 34.5 21.0-32.0 mmol/L Anion Gap 9.5 Glucose 80 74-106 mg/dL Blood Urea Nitrogen 11.0 7.0-18.0 mg/dL Creatinine 1.00 0.70-1.30 mg/dL Estimated GFR ( Elizabeth >60 >=60 mL/min/1.73m 2 Estimated GFR (Non- Gwen >60 >=60 mL/min/1.73m 2 BUN Creatinine Ratio 11.0 Calcium 8.7 8.5-10.1 mg/dL Bilirubin Total 0.6 0.2-1.0 mg/dL Aspartate Amino Transferase 28 15-37 U/L Alanine Aminotransferase 27 16-63 U/L Alkaline Phosphatase 109 46-116 U/L Total Protein 7.0 6.4-8.2 g/dL Albumin Level 3.1 3.4-5.0 g/dL Globulin 3.9 Albumin Globulin Ratio 0.8 Performing Lab: see note ML - [facility] LB CBC AUTO DIFF Reviewed date:09/20/2024 07:18:09 PM Interpretation: Performing Lab: Notes/Report: [facility] , White Blood Count 6.6 4.0-11.0 10 3/uL Red Blood Count 5.19 4.70-6.10 10 6/uL Hemoglobin 13.8 14.0-18.0 g/dL Hematocrit 45.1 42.0-54.0 % Mean Corpuscular Volume 86.9 80.0-94.0 fL Mean Corpuscular Hemoglobin 26.6 25.9-34.0 pg Mean Corpuscular HGB Conc 30.6 29.9-35.2 g/dL Red Cell Distribution Width 15.2 11.0-15.0 % Platelet Count 171 150-450 10 3/uL Mean Platelet Volume 10.2 9.5-13.5 fL Neutrophils Percent Auto 74.1 43.0-75.0 % Lymphocytes Percent Auto 10.4 20.5-60.0 % Monocytes Percent Auto 11.4 1.7-12.0 % Eosinophils Percent Auto 2.1 0.9-7.0 % Basophils Percent Auto 0.9 0.2-2.0 % Immature Granulocytes Pct Auto 1.1 0.0-0.5 % Neutrophils Absolute Auto 4.9 1.4-6.5 10 3/uL Lymphocytes Absolute Auto 0.7 1.2-3.8 10 3/uL Monocytes Absolute Auto 0.8 0.3-0.8 10 3/uL Eosinophils Absolute Auto 0.1 0.0-0.7 10 3/uL Basophils Absolute Auto 0.1 0.0-0.1 10 3/uL Immature Granulocytes Abs Auto 0.07 0.00-0.03 10 3/uL Performing Lab: see note ML - [facility] LB BNP Reviewed date:09/20/2024 07:18:09 PM Interpretation: Performing Lab: Notes/Report: [facility] , NT Pro B Type Natriuretic Pept 185.0 <=900.0 pg/mL Performing Lab: see note ML - [facility] LB US venous doppler LE BI Reviewed date:09/20/2024 07:18:09 PM Interpretation: Performing Lab: Notes/Report: Source Facility: [facility]-[address] [place] [address] [place] [address] Ultrasound Report Signed Patient: MATTY GARCES MR#: [id number] : 1970 Acct:[id number] Age/Sex: 53 / M ADM Date: 09/19/24 Loc: ER Attending Dr: Ordering Physician: Dwight Garrett Date of Service: 09/19/24 Procedure(s): US venous doppler LE LT Accession Number(s): [id number] cc: Venus Mendez M.D.; Dwight Garrett [place] [address] Patient Name: MATTY GARCES MRN: [id number] date: 1970 Sex: M Assigned Patient Location: ER Current Patient Location: ER Accession/Order Number: [id number] Exam Date: 09/19/2024 19:20 Report Date: 09/19/2024 20:47 At the request of: DWIGHT GARRETT Procedure: US venous doppler LE LT US venous doppler LE LT, 09/19/2024 7:20 PM EST INDICATION: DVT COMPARISON: 08/30/2024 FINDINGS: Left lower extremity venous duplex The visualized veins of the venous system of the left lower extremity are within normal limits with regard to spontaneous flow, phasic flow, augmentation and compression. No intraluminal thrombus formation is identified. No superficial venous thrombus is present. There is subcutaneous edema. US/US venous doppler LE LT IMPRESSION: No evidence of acute deep or superficial venous thrombosis. Electronically authenticated by: LATISHA LARSEN Date: 09/19/2024 20:47 Dictated By: Latisha Laresn M.D. Signed By: 09/19/242049 DD/ 46 TD/TT: Rn Internal Medicine: The [address] [place] [address] Ultrasound Report Signed Patient: JOSEPH GARCES MR#: [id number] : 1970 Acct:[id number] Age/Sex: 53 / M ADM Date: 09/19/24 Loc: ER Attending Dr: Ordering Physician: Dwight Garrett Date of Service: 09/19/24 Procedure(s): US kamaljit ous doppler LE LT Accession Number(s): [id number] cc: Venus Mendez M.D. ; Dwight Garrett [place] [address] Patient Name: MATTY GARCES MRN: [id number] date: 1970 Sex: M Assigned Patient Location: ER Current Patient Loca tion: ER Accession/Order Numb er: [id number] Exam Date: 09/19/2024 19:20 Report Date: 09/19/2024 20:47 At the request of: DWIGHT GARRETT Procedure: US venous doppler LE LT US venous doppler LE LT, 09/19/2024 7:20 PM EST INDICATION: DVT COMPARISON: 08/30/2024 FINDINGS: Left lower extremity venous duplex The visualized veins of the venous system of the left lower extremity are within normal limits with regard to spontaneous flow, phasic flow, augmentation and compression. No intraluminal thrombus formation is identified. No superficial venous thrombus is present. There is subcutaneou s edema. U S/US venous doppler LE LT IMPRESSION: No evidence of acute deep or superficial venous thrombosis. Electronically authenticated by: LATISHA LARSEN Date: 09/19/2024 20:47 Dictated By: Latisha Larsen M.D. Signed By: 09/19/242049 DD/ 46 TD/TT: Rn Internal Medicine: Manual Differential Reviewed date:09/19/2024 07:12:29 PM Interpretation: Performing Lab: Notes/Report: [facility] , Segmented Neutrophils % Manual 77.0 43.0-75.0 Lymphocytes Percent Manual 6.0 20.5-60.0 % Monocytes Percent Manual 4.0 1.7-12.0 % Eosinophils Percent Manual 3.0 0.9-7.0 % Basophils Percent Manual 1.0 0.2-2.0 % Atypical Lymphocytes % Manual 9.0 Segmented Neut Absolute Manual 5.85 1.4-6.5 10 3/uL Lymphocytes Absolute Manual 0.45 1.20-3.80 10 3/uL Monocytes Absolute Manual 0.30 0.30-0 .80 10 3/uL Eosinophils Absolute Manual 0.22 0.00-0.70 10 3/uL Basophils Abs Manual 0.07 0.00-0.10 1 0 3/uL Atypical Lymphocytes Abs Man 0.68 Performing Lab: see note ML - [facility] Erythrocyte Sedimentation Ra te Reviewed date:09/19/2024 07:12:29 PM Interpretation: Performing Lab: Notes/Report: [facility] , Erythrocyte Sedimentation Rate 51 <=20 mm/hr Performing Lab: see note - [facility] LB Blood Culture 2 Reviewed date:09/25/2024 08:20:56 PM Interpretation: Performing Lab: Notes/Report: [facility] , Blood Culture 2 See Below For Report Blood Culture 2 NG5D NO GROWTH AT 5 DAYS. Performing Lab: see note - [facility] LB Blood Culture 1 Reviewed date:09/25/2024 08:20:56 PM Interpretation: Performing Lab: Notes/Report: [facility] , Blood Culture 1 See Below For Report Blood Culture 1 NG5D NO GROWTH AT 5 DAYS. Performing Lab: see note [facility] LB PROF 14(COMP METB) Reviewed date:09/20/2024 07:18:09 PM Interpretation: Performing Lab: Notes/Report: [facility] , Sodium 138 136-145 mmol/L Potassium 3.7 3.5-5.1 mmol/L Chloride 103 98-107 mmol/L Carbon Dioxide 28.6 21.0-32.0 mmol/L Anion Gap 10.1 Glucose 128 74-106 mg/dL Blood Urea Nitrogen 12.0 7.0-18.0 mg/dL Creatinine 1.04 0.70-1.30 mg/dL Estimated GFR ( Elizabeth >60 >=60 mL/min/1.73m 2 Estimated GFR (Non- Gwen >60 >=60 mL/min/1.73m 2 BUN Creatinine Ratio 11.5 Calcium 9.2 8.5-10.1 mg/dL Bilirubin Total 0.5 0.2-1.0 mg/dL Aspartate Amino Transferase 29 15-37 U/L Alanine Aminotransferase 25 16-63 U/L Alkaline Phosphatase 111 46-116 U/L Total Protein 7.4 6.4-8.2 g/dL Albumin Level 3.3 3.4-5.0 g/dL Globulin 4.1 Albumin Globulin Ratio 0.8 Performing Lab: see note ML - [facility] LB LACTATE or LACTIC ACID Reviewed date:09/20/2024 07:18:09 PM Interpretation: Performing Lab: Notes/Report: [facility] , Lactate/Lactic Acid 1.4 0.4-2.0 mmol/L Performing Lab: see note ML - [facility] LB CRP Reviewed date:09/20/2024 07:18:09 PM Interpretation: Performing Lab: Notes/Report: [facility] , C Reactive Protein 2.51 <=0.50 mg/dL Performing Lab: see note ML - [facility] LB CBC AUTO DIFF Reviewed date:09/19/2024 07:12:29 PM Interpretation: Performing Lab: Notes/Report: [facility] , White Blood Count 7.6 4.0-11.0 10 3/uL Red Blood Count 5.22 4.70-6.10 10 6/uL Hemoglobin 14.0 14.0-18.0 g/dL Hematocrit 44.6 42.0-54.0 % Mean Corpuscular Volume 85.4 80.0-94.0 fL Mean Corpuscular Hemoglobin 26.8 25.9-34.0 pg Mean Corpuscular HGB Conc 31.4 29.9-35.2 g/dL Red Cell Distribution Width 15.1 11.0-15.0 % Platelet Count 182 150-450 10 3/uL Mean Platelet Volume 9.8 9.5-13.5 fL Performing Lab: see note ML - [facility] LB XR ankle LT min 3V Reviewed date:08/29/2024 12:27:30 PM Interpretation: Performing Lab: Notes/Report: Source Facility: [facility]-[address] [place] [address] [place] [address] XRay Report Signed Patient: MATTY GARCES MR#: [id number] : 1970 Acct:[id number] Age/Sex: 53 / M ADM Date: 08/29/24 Loc: ER Attending Dr: Ordering Physician: Ramandeep Amaral Date of Service: 08/29/24 Procedure(s): XR ankle LT min 3V Accession Number(s): [id number] cc: Venus Mendez M.D.; Ramandeep Amaral [place] [address] Patient Name: MATTY GARCES MRN: [id number] date: 1970 Sex: M Assigned Patient Location: ED.MAIN Current Patient Location: ER Accession/Order Number: [id number] Exam Date: 08/29/2024 05:10 Report Date: 08/29/2024 05:32 At the request of: RAMANDEEP AMARAL Procedure: XR ankle LT min 3V EXAM: XR foot LT min 3V, XR ankle LT min 3V HISTORY: left foot ulcer, base of great toe COMPARISON: Left ankle radiographs dated 07/04/2024. TECHNIQUE: 3 views of the left ankle and 4 views of the left foot were obtained. FINDINGS: There are postsurgical changes of ORIF of a remote distal left fibular fracture. The fracture line remains visible. There is stable mild lucency about the 2 syndesmotic screws. No acute fracture or dislocation is seen. There is a well-corticated ossific density at the tip of the medial malleolus that is likely related to remote trauma. There are scattered degenerative changes. There is no significant left ankle joint effusion. There is a small Achilles calcaneal enthesophyte. There appears to be some air within the soft tissues between the bases of the first and second toes. No radiographic evidence of osteomyelitis is seen. XR/XR ankle LT min 3V IMPRESSION: 1. There appears to be some air within the soft tissues between the bases of the left first and second toes. No radiographic evidence of osteomyelitis is seen. If there is persistent concern, further evaluation with MRI is recommended. 2. Postsurgical changes as described with stable lucency about the syndesmotic screws, concerning for loosening. Electronically authenticated by: Kristin CHANEY Date: 08/29/2024 05:32 Dictated By: Ty Chaney M.D. Signed By: 08/29/24 0535 DD/ 0532 TD/TT: Rn Internal Medicine: The [address] [address] XRay Report Signed Patient: JOSEPH GARCES MR#: [id number] : 1970 Acct:[id number] Age/Sex: 53 / M ADM Date: 08/29/24 Loc: ER Attending Dr: Ordering Physician: Ramandeep Amaral Date of Service: 08/29/24 Procedure(s): XR ank le LT min 3V Accession Number(s): [id number] cc: Venus Mendez M.D. ; Ramandeep Amaral [address] [address] Patient Name: MATTY GARCES MRN: [id number] date: 1970 Sex: M Assigned Patient Location: ED.MAIN Current Patient Loca tion: ER Accession/Order Numb er: [id number] Exam Date: 05:10 Report Date: 08/29/2024 05:32 At the request of: RAMANDEEP AMARAL Procedure: XR ankle LT min 3V EXAM: XR foot LT min 3V, XR ankle LT min 3V HISTORY: left foot u lcer, base of great toe COMPARISON: Left ank le radiographs dated 07/04/2024. TECHNIQUE: 3 views o f the left ankle and 4 views of the left foot were obtained. FINDINGS: There are postsurgical changes of ORIF of a remote distal left fibular fracture. Th e fracture line remains visible. There is stable mild lucency about the 2 syndesmotic screws. No acute fracture or dislocation is seen. There is a well-corticated ossific density at the tip of the medial malleolus that is li belle related to remote trauma. There are scattered degenerative changes . There is no significant left ankle joint effusion. There is a small Achilles calcaneal enthesophyte. There appears to be some air within the soft tissues bet ween the bases of the first and second toes. No radiographic evidenc e of osteomyelitis is seen. X R/XR ankle LT min 3V IMPRESSION: 1. There appears to be some air within the soft tissues between the bases of the left first and s econd toes. No radiographic evidence of osteomyelitis is seen. If there is persistent concern, further evaluation with MRI is recommended. 2. Postsurgical isidro ges as described with stable lucency about the syndesmotic screws, concerning f or loosening. Electronically authenticated by: Kristin CHANEY Date: 08/29/2024 05:32 Dictated By: Ty Chaney M.D. Signed By: 08/29/2435 DD/ 1 TD/TT: Rn Internal Medicine: ECG 12 lead Reviewed date:08/29/2024 12:27:30 PM Interpretation: Performing Lab: Notes/Report: Source Facility: [place] [address] Electrocardiograph Report Signed Patient: MATTY GARCES MR#: [id number] : 1970 Acct:[id number] Age/Sex: 53 / M ADM Date: 08/29/24 Loc: ER Attending Dr: Ordering Physician: Ramandeep Amaral Date of Service: 08/29/24 Procedure(s): ECG 12 lead Accession Number(s): [id number] cc: [facility] Test Date: 2024-08-29 Pat Name: MATTY GARCES Department: Room: - Gender: Male Crown Buffer: : 1970 Requested By: VENUS MENDEZ Order Number: [id number] Reading MD: VENUS MENDEZ Measurements Intervals [place] Rate: 99 P: 58 [place]: 168 QRS: 54 QRSD: 90 T: 30 QT: 336 QTc: 392 Interpretive Statements 1100 Sinus rhythm [address] depression 4564 Twave abnormality, possible lateral ischemia 9150 abnormal ECG Compared to ECG 03/14/2024 12:48:16 ST (T wave) deviation now present Possible ischemia now present T-wave abnormality no longer present Electronically Signed On 08-29-2024 6:59:02 EST by VENUS MENDEZ Dictated By: Venus Mendez M.D. Signed By: 08/29/24 0659 DD/ 0500 TD/TT: Rn Internal Medicine: [place] [address] Electrocardiograph Report Signed Patient: JOSEPH GARCES MR#: [id number] : 1970 Acct:[id number] Age/Sex: 53 / M ADM Date: 08/29/24 Loc: ER Attending Dr: Ordering Physician: Ramandeep Amaral Date of Service: 08/29/24 Procedure(s): ECG 12 lead Accession Number(s): [id number] cc: [facility] Test Date: 2024-08-29 Pat Name: MATTY GÓMEZ IN Department: 53 Room: - Gender: Male Crown Buffer: : 1970 Requ ested By: VENUS MENDEZ Order Number: [id number] Reading MD: VENUS MENDEZ Measurements Intervals [place] Rate: 99 P: 58 [place]: 168 QRS: 54 QRSD: 90 T: 30 QT: 336 QTc: 392 Interpretive Statements 1100 Sinus rhythm [address] depression 4564 Twave abnormali ty, possible lateral ischemia 9150 abnormal ECG Compared to ECG 03/14/2024 12:48:16 ST (T wave) deviatio n now present Possible ischemia no w present T-wave abnormality n o longer present Electronically Donna d On 08-29-2024 6:59:02 EST by VENUS MENDEZ Dictated By: Rodo Mendez M.D. Signed By: 08/29/24 0659 DD/ 0500 TD/TT: Rn Internal Medicine: XR foot LT min 3V Reviewed date:08/29/2024 12:27:30 PM Interpretation: Performing Lab: Notes/Report: Source Facility: [place] [address] [place] [address] XRay Report Signed Patient: MATTY GARCES MR#: [id number] : 1970 Acct:[id number] Age/Sex: 53 / M ADM Date: 08/29/24 Loc: ER Attending Dr: Ordering Physician: Ramandeep Amaral Date of Service: 08/29/24 Procedure(s): XR foot LT min 3V Accession Number(s): [id number] cc: Venus Mendez M.D.; Ramandeep Marker [place] [id number] Patient Name: MATTY GARCES MRN: [facility]:[id number] date: 1970 Sex: M Assigned Patient Location: ED.MAIN Current Patient Location: ER Accession/Order Number: [id number] Exam Date: 08/29/2024 05:10 Report Date: 08/29/2024 05:32 At the request of: RAMANDEEP MARKER Procedure: XR foot LT min 3V EXAM: XR foot LT min 3V, XR ankle LT min 3V HISTORY: left foot ulcer, base of great toe COMPARISON: Left ankle radiographs dated 07/04/2024. TECHNIQUE: 3 views of the left ankle and 4 views of the left foot were obtained. FINDINGS: There are postsurgical changes of ORIF of a remote distal left fibular fracture. The fracture line remains visible. There is stable mild lucency about the 2 syndesmotic screws. No acute fracture or dislocation is seen. There is a well-corticated ossific density at the tip of the medial malleolus that is likely related to remote trauma. There are scattered degenerative changes. There is no significant left ankle joint effusion. There is a small Achilles calcaneal enthesophyte. There appears to be some air within the soft tissues between the bases of the first and second toes. No radiographic evidence of osteomyelitis is seen. XR/XR foot LT min 3V IMPRESSION: 1. There appears to be some air within the soft tissues between the bases of the left first and second toes. No radiographic evidence of osteomyelitis is seen. If there is persistent concern, further evaluation with MRI is recommended. 2. Postsurgical changes as described with stable lucency about the syndesmotic screws, concerning for loosening. Electronically authenticated by: Kristin CHANEY Date: 08/29/2024 05:32 Dictated By: Ty Chaney M.D. Signed By: 08/29/2435 DD/ 1 TD/TT: Rn Internal Medicine: [place] [address] XRay Report Signed Patient: JOSEPH GARCES MR#: [id number] : 1970 Acct:[id number] Age/Sex: 53 / M ADM Date: 08/29/24 Loc: ER Attending Dr: Ordering Physician: Ramandeep Amaral Date of Service: 08/29/24 Procedure(s): XR shahzad t LT min 3V Accession Number(s): [id number] cc: Venus Mendez M.D. ; Ramandeep Amaral [place] [address] Patient Name: MATTY GARCES MRN: [facility]:[id number] date: 1970 Sex: M Assigned Patient Location: ED.MAIN Current Patient Loca tion: ER Accession/Order Numb er: [id number] Exam Date: 05:10 Report Date: 08/29/2024 05:32 At the request of: RAMANDEEP AMARAL Procedure: XR foot L T min 3V EXAM: XR foot LT min 3V, XR ankle LT min 3V HISTORY: left foot u lcer, base of great toe COMPARISON: Left ank le radiographs dated 07/04/2024. TECHNIQUE: 3 views o f the left ankle and 4 views of the left foot were obtained. FINDINGS: There are postsurgical changes of ORIF of a remote distal left fibular fracture. Th e fracture line remains visible. There is stable mild lucency about the 2 syndesmotic screws. No acute fracture or dislocation is seen. There is a well-corticated ossific density at the tip of the medial malleolus that is li belle related to remote trauma. There are scattered degenerative changes . There is no significant left ankle joint effusion. There is a small Achilles calcaneal enthesophyte. There appears to be some air within the soft tissues bet ween the bases of the first and second toes. No radiographic evidenc e of osteomyelitis is seen. X R/XR foot LT min 3V IMPRESSION: 1. There appears to be some air within the soft tissues between the bases of the left first and s econd toes. No radiographic evidence of osteomyelitis is seen. If there is persistent concern, further evaluation with MRI is recommended. 2. Postsurgical isidro ges as described with stable lucency about the syndesmotic screws, concerning f or loosening. Electronically authenticated by: Kristin CHANEY Date: 08/29/2024 05:32 Dictated By: Ty Chaney M.D. Signed By: 08/29/2435 DD/ TD/TT: Rn Internal Medicine: PROF Deutsch(COMP METB) Reviewed date:08/29/2024 12:27:30 PM Interpretation: Performing Lab: Notes/Report: [facility] , Sodium 137 136-145 mmol/L Potassium 3.4 3.5-5.1 mmol/L Chloride 100 98-107 mmol/L Carbon Dioxide 28.6 21.0-32.0 mmol/L Anion Gap 11.8 Glucose 95 74-106 mg/dL Blood Urea Nitrogen 13.0 7.0-18.0 mg/dL Creatinine 1.40 0.70-1.30 mg/dL Estimated GFR ( Elizabeth >60 >=60 mL/min/1.73m 2 Estimated GFR (Non- Gwen 53 >=60 mL/min/1.73m 2 BUN Creatinine Ratio 9.3 Calcium 8.9 8.5-10.1 mg/dL Bilirubin Total 0.7 0.2-1.0 mg/dL Aspartate Amino Transferase 34 15-37 U/L Alanine Aminotransferase 28 16-63 U/L Alkaline Phosphatase 150 46-116 U/L Total Protein 8.0 6.4-8.2 g/dL Albumin Level 3.7 3.4-5.0 g/dL Globulin 4.3 Albumin Globulin Ratio 0.9 Performing Lab: see note ML - [facility] LB LACTATE or LACTIC ACID Reviewed date:08/29/2024 12:27:30 PM Interpretation: Performing Lab: Notes/Report: [facility] , Lactate/Lactic Acid 2.1 0.4-2.0 mmol/L RESULTS CALLED TO GUI LIANG RN @BY Supriya Nunes at 0508 Performing Lab: see note ML - [facility] LB CBC AUTO DIFF Reviewed date:08/29/2024 12:27:30 PM Interpretation: Performing Lab: Notes/Report: [facility] , White Blood Count 11.3 4.0-11.0 10 3/uL Red Blood Count 5.73 4.70-6.10 10 6/uL Hemoglobin 15.4 14.0-18.0 g/dL Hematocrit 48.5 42.0-54.0 % Mean Corpuscular Volume 84.6 80.0-94.0 fL Mean Corpuscular Hemoglobin 26.9 25.9-34.0 pg Mean Corpuscular HGB Conc 31.8 29.9-35.2 g/dL Red Cell Distribution Width 15.3 11.0-15.0 % Platelet Count 159 150-450 10 3/uL Mean Platelet Volume 9.2 9.5-13.5 fL Neutrophils Percent Auto 83.2 43.0-75.0 % Lymphocytes Percent Auto 6.9 20.5-60.0 % Monocytes Percent Auto 7.7 1.7-12.0 % Eosinophils Percent Auto 1.1 0.9-7.0 % Basophils Percent Auto 0.5 0.2-2.0 % Immature Granulocytes Pct Auto 0.6 0.0-0.5 % Neutrophils Absolute Auto 9.4 1.4-6.5 10 3/uL Lymphocytes Absolute Auto 0.8 1.2-3.8 10 3/uL Monocytes Absolute Auto 0.9 0.3-0.8 10 3/uL Eosinophils Absolute Auto 0.1 0.0-0.7 10 3/uL Basophils Absolute Auto 0.1 0.0-0.1 10 3/uL Immature Granulocytes Abs Auto 0.07 0.00-0.03 10 3/uL Performing Lab: see note ML - [facility] LB XR foot LT min 3V Reviewed date:08/29/2024 12:27:30 PM Interpretation: Performing Lab: Notes/Report: Source Facility: [facility]-[address] [place] [address] [place] [address] XRay Report Signed Patient: MATTY GARCES MR#: [id number] : 1970 Acct:[id number] Age/Sex: 53 / M ADM Date: 08/22/24 Loc: Attending Dr: Harriett Gooden Ordering Physician: Harriett Gooden Date of Service: 08/22/24 Procedure(s): XR foot LT min 3V Accession Number(s): [id number] cc: Venus Mendez M.D.; Harriett Gooden [address] [id number] Patient Name: MATTY GARCES MRN: [id number]:[id number] date: 1970 Sex: M Assigned Patient Location: Current Patient Location: Accession/Order Number: [id number] Exam Date: 08/22/2024 13:51 Report Date: 08/23/2024 08:00 At the request of: HARRIETT GOODEN Procedure: XR foot LT min 3V PROCEDURE: XR foot LT min 3V COMPARISON: 07/04/2024 ankle x-ray HISTORY: LEFT FOOT PAIN FINDINGS: BONES:No acute fracture or dislocation. Moderate to severe degenerative changes of the first toe with a shortened appearance. Remote fixation hardware and continued healing of a distal fibular fracture partially visualized SOFT TISSUES:Soft tissue swelling of the first toe EFFUSION:None visible. OTHER: Negative. XR/XR foot LT min 3V IMPRESSION: Chronic degenerative and/or posttraumatic changes of the first toe with soft tissue swelling/thickening Electronically authenticated by: ALVINA CAICEDO Date: 08/23/2024 08:00 Dictated By: Alvina Caicedo M.D. Signed By: 08/23/24 08 DD/ 08 TD/TT: Rn Internal Medicine: [place] [address] XRay Report Signed Patient: JOSEPH GARCES MR#: [id number] : 1970 Acct:[id number] Age/Sex: 53 / M ADM Date: 08/22/24 Loc: Attending Dr: Jocelyn Gooden Ordering Physician: Harriett Gooden Date of Service: 08/22/24 Procedure(s): XR shahzad t LT min 3V Accession Number(s): [id number] cc: Venus Mendez M.D. ; Harriett Gooden [address] [address] Patient Name: MATTY GARCES MRN: [id number]:[id number] date: 1970 Sex: M Assigned Patient Location: Current Patient Location: Accession/Order Numb er: [id number] Exam Date: 13:51 Report Date: 08/23/2024 08:00 At the request of: HARRIETT GOODEN Procedure: XR foot L T min 3V PROCEDURE: XR foot L T min 3V COMPARISON: 07/04/20 24 ankle x-ray HISTORY: LEFT FOOT PAIN FINDINGS: BONES:No acute fract ure or dislocation. Moderate to severe degenerative changes of the first toe wit h a shortened appearance. Remote fixation hardware and continued healing of a distal fibular fracture partially visualized SOFT TISSUES:Soft ti ssue swelling of the first toe EFFUSION:None visible. OTHER: Negative. X R/XR foot LT min 3V IMPRESSION: Chronic degenerative and/or posttraumatic changes of the first toe with soft tissue swelling/thickening Electronically authenticated by: ALVINA CAICEDO Date: 08/23/2024 08:00 Dictated By: Donald Caicedo M.D. Signed By: 08/23/24801 DD/ 9 TD/TT: Rn Internal Medicine: PROF KYLE Roe ([facility]) Reviewed date:08/29/2024 12:27:30 PM Interpretation: Performing Lab: Notes/Report: [facility] , Sodium 137 136-145 mmol/L Potassium 4.4 3.5-5.1 mmol/L Chloride 103 98-107 mmol/L Carbon Dioxide 29.2 21.0-32.0 mmol/L Anion Gap 9.2 Glucose 134 74-106 mg/dL Blood Urea Nitrogen 13.0 7.0-18.0 mg/dL Creatinine 1.12 0.70-1.30 mg/dL Estimated GFR ( Elizabeth >60 >=60 mL/min/1.73m 2 Estimated GFR (Non- Gwen >60 >=60 mL/min/1.73m 2 BUN Creatinine Ratio 11.6 Calcium 9.2 8.5-10.1 mg/dL Performing Lab: see note ML - [facility] LB CRP Reviewed date:08/29/2024 12:27:30 PM Interpretation: Performing Lab: Notes/Report: [facility] , C Reactive Protein 0.54 <=0.50 mg/dL Performing Lab: see note ML - [facility] LB CBC AUTO DIFF Reviewed date:08/29/2024 12:27:30 PM Interpretation: Performing Lab: Notes/Report: [facility] , White Blood Count 9.1 4.0-11.0 10 3/uL Red Blood Count 5.89 4.70-6.10 10 6/uL Hemoglobin 16.0 14.0-18.0 g/dL Hematocrit 50.2 42.0-54.0 % Mean Corpuscular Volume 85.2 80.0-94.0 fL Mean Corpuscular Hemoglobin 27.2 25.9-34.0 pg Mean Corpuscular HGB Conc 31.9 29.9-35.2 g/dL Red Cell Distribution Width 15.6 11.0-15.0 % Platelet Count 191 150-450 10 3/uL Mean Platelet Volume 9.2 9.5-13.5 fL Neutrophils Percent Auto 77.5 43.0-75.0 % Lymphocytes Percent Auto 11.5 20.5-60.0 % Monocytes Percent Auto 7.5 1.7-12.0 % Eosinophils Percent Auto 1.3 0.9-7.0 % Basophils Percent Auto 0.9 0.2-2.0 % Immature Granulocytes Pct Auto 1.3 0.0-0.5 % Neutrophils Absolute Auto 7.0 1.4-6.5 10 3/uL Lymphocytes Absolute Auto 1.0 1.2-3.8 10 3/uL Monocytes Absolute Auto 0.7 0.3-0.8 10 3/uL Eosinophils Absolute Auto 0.1 0.0-0.7 10 3/uL Basophils Absolute Auto 0.1 0.0-0.1 10 3/uL Immature Granulocytes Abs Auto 0.12 0.00-0.03 10 3/uL Performing Lab: see note ML - [facility] LB PSA SCREENING Reviewed date:08/05/2024 10:32:26 AM Interpretation: Performing Lab: Notes/Report: [facility] , Prostate Specific Antigen Scrn 2.37 <=4.00 ng/mL Performing Lab: see note ML - [facility] LB PROF 14(COMP METB) Reviewed date:08/05/2024 10:32:26 AM Interpretation: Performing Lab: Notes/Report: [facility] , Sodium 141 136-145 mmol/L Potassium 4.0 3.5-5.1 mmol/L Chloride 101 98-107 mmol/L Carbon Dioxide 32.8 21.0-32.0 mmol/L Anion Gap 11.2 Glucose 89 74-106 mg/dL Blood Urea Nitrogen 11.0 7.0-18.0 mg/dL Creatinine 1.21 0.70-1.30 mg/dL Estimated GFR ( Elizabeth >60 >=60 mL/min/1.73m 2 Estimated GFR (Non- Gwen >60 >=60 mL/min/1.73m 2 BUN Creatinine Ratio 9.1 Calcium 8.9 8.5-10.1 mg/dL Bilirubin Total 0.9 0.2-1.0 mg/dL Aspartate Amino Transferase 27 15-37 U/L Alanine Aminotransferase 26 16-63 U/L Alkaline Phosphatase 147 46-116 U/L Total Protein 7.9 6.4-8.2 g/dL Albumin Level 3.6 3.4-5.0 g/dL Globulin 4.3 Albumin Globulin Ratio 0.8 Performing Lab: see note ML - [facility] LB LIPID PROFILE Reviewed date:08/05/2024 10:32:26 AM Interpretation: Performing Lab: Notes/Report: [facility] , Triglycerides 123 <=150 mg/dL Cholesterol 174 <=200 mg/dL HDL Cholesterol 37 40-60 mg/dL > or =60 mg/dl - LOW CARDIOVASCULAR RISK <40 mg/dl - HIGH CARDIOVASCULAR RISK LDL Cholesterol Calculated 113.0 <100 mg/dl OPTIMAL 100-129 mg/dl NEAR OR ABOVE OPTIMAL 130-159 mg/dl BORDERLINE HIGH 160-189 mg/dl HIGH >190 mg/dl VERY HIGH VLDL CHOLESTEROL 24.6 Chol HDL Ratio 4.7 3.3 - 4.4 LOW RISK 4.4 - 7.1 AVERAGE RISK 7.1 - 11.0 MODERATE RISK >11.0 HIGH RISK Performing Lab: see note ML - [facility] LB CBC AUTO DIFF Reviewed date:08/05/2024 10:32:26 AM Interpretation: Performing Lab: Notes/Report: [facility] , White Blood Count 9.3 4.0-11.0 10 3/uL Red Blood Count 5.89 4.70-6.10 10 6/uL Hemoglobin 15.8 14.0-18.0 g/dL Hematocrit 50.4 42.0-54.0 % Mean Corpuscular Volume 85.6 80.0-94.0 fL Mean Corpuscular Hemoglobin 26.8 25.9-34.0 pg Mean Corpuscular HGB Conc 31.3 29.9-35.2 g/dL Red Cell Distribution Width 15.9 11.0-15.0 % Platelet Count 163 150-450 10 3/uL Mean Platelet Volume 9.7 9.5-13.5 fL Neutrophils Percent Auto 77.1 43.0-75.0 % Lymphocytes Percent Auto 10.8 20.5-60.0 % Monocytes Percent Auto 8.9 1.7-12.0 % Eosinophils Percent Auto 1.4 0.9-7.0 % Basophils Percent Auto 0.9 0.2-2.0 % Immature Granulocytes Pct Auto 0.9 0.0-0.5 % Neutrophils Absolute Auto 7.2 1.4-6.5 10 3/uL Lymphocytes Absolute Auto 1.0 1.2-3.8 10 3/uL Monocytes Absolute Auto 0.8 0.3-0.8 10 3/uL Eosinophils Absolute Auto 0.1 0.0-0.7 10 3/uL Basophils Absolute Auto 0.1 0.0-0.1 10 3/uL Immature Granulocytes Abs Auto 0.08 0.00-0.03 10 3/uL Performing Lab: see note ML - [facility] LB XR ankle LT min 3V Reviewed date:08/05/2024 10:32:26 AM Interpretation: Performing Lab: Notes/Report: Source Facility: [facility]-[address] [place] [address] [place] [address] XRay Report Signed Patient: MATTY GARCES MR#: [id number] : 1970 Acct:[id number] Age/Sex: 53 / M ADM Date: 07/04/24 Loc: RAD Attending Dr: Clarisa Vallejo D.P.M. Ordering Physician: Clarisa Vallejo D.P.M. Date of Service: 07/04/24 Procedure(s): XR ankle LT min 3V Accession Number(s): [id number] cc: Clarisa Vallejo D.P.M.; Venus Mendez M.D. [place] [address] Patient Name: MATTY GARCES MRN: [id number]:[id number] date: 1970 Sex: M Assigned Patient Location: RAD Current Patient Location: Accession/Order Number: [id number] Exam Date: 07/04/2024 08:59 Report Date: 07/08/2024 09:09 At the request of: CLARISA VALLEJO Procedure: XR ankle LT min 3V EXAM: XR ankle LT min 3V HISTORY: LEFT ANKLE PAIN COMPARISON: 06/13/2024 FINDINGS/IMPRESSION: 1. Plate and screw fixation of the distal fibula. Screw fixation of the distal tibiofibular syndesmosis. 2. Ankle mortise is maintained. 3. Subcutaneous soft tissue edema about the ankle. 4. Ankle joint effusion. 5. Mild degeneration of the mid foot. 6. Calcaneal Achilles enthesophyte. Electronically authenticated by: EDMUND YOUNG Date: 07/08/2024 09:09 Dictated By: Edmund Young M.D. Signed By: 07/08/24910 DD/ 8 TD/TT: Rn Internal Medicine: [place] [address] XRay Report Signed Patient: JOSEPH GARCES MR#: [id number] : 1970 Acct:[id number] Age/Sex: 53 / M ADM Date: 07/04/24 Loc: [facility] Attending Dr: Clarisa Vallejo D.P.M. Ordering Physician: Clarisa Vallejo D.P.M. Date of Service: 07/04/24 Procedure(s): XR ank le LT min 3V Accession Number(s): [id number] cc: Clarisa Vallejo D.P.M.; Venus Mendez M.D. [facility] [place] [id number] Patient Name: MATTY GARCES MRN: [id number]:[id number] date: 1970 Sex: M Assigned Patient Location: [facility] Current Patient Location: Accession/Order Numb er: [id number] Exam Date: 08:59 Report Date: 07/08/2024 09:09 At the request of: CLARISA VALLEJO Procedure: XR ankle LT min 3V EXAM: XR ankle LT min 3V HISTORY: LEFT ANKLE PAIN COMPARISON: 06/13/2024 FINDINGS/IMPRESSION: 1. Plate and screw fixation of the distal fibula. Screw fixation of the distal tibiofibular syndesmosis. 2. Ankle mortise is maintained. 3. Subcutaneous soft tissue edema about the ankle. 4. Ankle joint effusion. 5. Mild degeneration of the mid foot. 6. Calcaneal Damian s enthesophyte. Electronically authenticated by: EDMUND YOUNG Date: 07/08/2024 09:09 Dictated By: Angely Young M.D. Signed By: 07/08/24910 DD/ 8 TD/TT: Rn Internal Medicine: CBC AUTO DIFF Reviewed date:07/07/2024 12:32:15 PM Interpretation: Performing Lab: Notes/Report: [facility] , White Blood Count 9.1 4.0-11.0 10 3/uL Red Blood Count 6.32 4.70-6.10 10 6/uL Hemoglobin 16.9 14.0-18.0 g/dL Hematocrit 54.0 42.0-54.0 % Mean Corpuscular Volume 85.4 80.0-94.0 fL Mean Corpuscular Hemoglobin 26.7 25.9-34.0 pg Mean Corpuscular HGB Conc 31.3 29.9-35.2 g/dL Red Cell Distribution Width 16.9 11.0-15.0 % Platelet Count 205 150-450 10 3/uL Mean Platelet Volume 10.2 9.5-13.5 fL Neutrophils Percent Auto 77.6 43.0-75.0 % Lymphocytes Percent Auto 12.2 20.5-60.0 % Monocytes Percent Auto 7.3 1.7-12.0 % Eosinophils Percent Auto 1.2 0.9-7.0 % Basophils Percent Auto 0.7 0.2-2.0 % Immature Granulocytes Pct Auto 1.0 0.0-0.5 % Neutrophils Absolute Auto 7.1 1.4-6.5 10 3/uL Lymphocytes Absolute Auto 1.1 1.2-3.8 10 3/uL Monocytes Absolute Auto 0.7 0.3-0.8 10 3/uL Eosinophils Absolute Auto 0.1 0.0-0.7 10 3/uL Basophils Absolute Auto 0.1 0.0-0.1 10 3/uL Immature Granulocytes Abs Auto 0.09 0.00-0.03 10 3/uL Performing Lab: see note ML - [facility] LB XR ankle LT min 3V Reviewed date:07/07/2024 12:32:15 PM Interpretation: Performing Lab: Notes/Report: Source Facility: [facility]-[address] [place] [address] [place] [address] XRay Report Signed Patient: MATTY GARCES MR#: [id number] : 1970 Acct:[id number] Age/Sex: 53 / M ADM Date: 06/13/24 Loc: EC Attending Dr: Clarisa Vallejo D.P.M. Ordering Physician: Clarisa Vallejo D.P.M. Date of Service: 06/13/24 Procedure(s): XR ankle LT min 3V Accession Number(s): [id number] cc: Clarisa Vallejo D.P.M.; Venus Mendez M.D. [place] [address] Patient Name: MATTY GARCES MRN: [id number]:[id number] date: 1970 Sex: M Assigned Patient Location: Current Patient Location: Accession/Order Number: [id number] Exam Date: 06/13/2024 11:21 Report Date: 06/14/2024 07:43 At the request of: CLARISA VALLEJO Procedure: XR ankle LT min 3V PROCEDURE: XR ankle LT min 3V COMPARISON: 05/23/2024 HISTORY: LEFT ANKLE PAIN FINDINGS: BONES:Complex distal fibular fracture with internal fixation utilizing a plate and multiple screws 2 of which are across the syndesmosis. Interval bone formation with callus and partial bony bridging SOFT TISSUES:Moderate soft tissue swelling EFFUSION:Joint effusion OTHER: Negative. XR/XR ankle LT min 3V IMPRESSION: Stable healing distal fibular fracture with internal fixation Electronically authenticated by: ALVINA CAICEDO Date: 06/14/2024 07:43 Dictated By: Alvina Caicedo M.D. Signed By: 06/14/24745 DD/ 2 TD/TT: Rn Internal Medicine: [place] [address] XRay Report Signed Patient: JOSEPH GARCES MR#: [id number] : 1970 Acct:[id number] Age/Sex: 53 / M ADM Date: 06/13/24 Loc: EC Attending Dr: Clarisa Vallejo D.P.M. Ordering Physician: Clarisa Vallejo D.P.M. Date of Service: 06/13/24 Procedure(s): XR ank le LT min 3V Accession Number(s): [id number] cc: Clarisa Vallejo D.P.M.; Venus Mendez M.D. [place] [address] Patient Name: MATTY GARCES MRN: [id number]:[id number] date: 1970 Sex: M Assigned Patient Location: Current Patient Location: Accession/Order Numb er: [id number] Exam Date: 11:21 Report Date: 06/14/2024 07:43 At the request of: CLARISA VALLEJO Procedure: XR ankle LT min 3V PROCEDURE: XR ankle LT min 3V COMPARISON: 05/23/2024 HISTORY: LEFT ANKLE PAIN FINDINGS: BONES:Complex distal fibular fracture with internal fixation utilizing a plate and multiple screws 2 of which are across the syndesmosis. Interval bone formation with callu s and partial bony bridging SOFT TISSUES:Moderat e soft tissue swelling EFFUSION:Joint effusion OTHER: Negative. X R/XR ankle LT min 3V IMPRESSION: Stable healing dista l fibular fracture with internal fixation Electronically authenticated by: ALVINA CAICEDO Date: 06/14/2024 07:43 Dictated By: Donald Caicedo M.D. Signed By: 06/14/24745 DD/ 2 TD/TT: Rn Internal Medicine: XR ankle LT min 3V Reviewed date:07/07/2024 12:32:16 PM Interpretation: Performing Lab: Notes/Report: Source Facility: [facility]-[address], [place] [address] XRay Report Signed Patient: MATTY GARCES MR#: [id number] : 1970 Acct:[id number] Age/Sex: 53 / M ADM Date: 04/20/24 Loc: EC Attending Dr: Harriett Gooden Ordering Physician: Harriett Gooden Date of Service: 04/20/24 Procedure(s): XR ankle LT min 3V Accession Number(s): [id number] cc: Venus Mendez M.D.; Harriett Gooden [place] [address] Patient Name: MATTY GARCES MRN: [facility]:[id number] date: 1970 Sex: M Assigned Patient Location: Current Patient Location: Accession/Order Number: [id number] Exam Date: 04/20/2024 14:13 Report Date: 04/24/2024 14:08 At the request of: HARRIETT GOODEN Procedure: XR ankle LT min 3V PROCEDURE: XR ankle LT min 3V COMPARISON: 04/04/2024 HISTORY: LEFT ANKLE PAIN FINDINGS: BONES:Stable complex distal fibular fracture with internal fixation utilizing a lateral plate and screws. Fusion across the superior tibiofibular syndesmosis. No mechanical failure. Moderate enthesopathic spurring of the calcaneus at the Achilles insertion. Minimal interval bone formation SOFT TISSUES:Mild ankle soft tissue swelling EFFUSION:Ankle joint effusion OTHER: Negative. XR/XR ankle LT min 3V IMPRESSION: Stable healing fibular fracture with internal fixation Electronically authenticated by: ALVINA CAICEDO Date: 04/24/2024 14:08 Dictated By: Alvina Caicedo M.D. Signed By: 04/24/24 1411 DD/ 1408 TD/TT: Rn Internal Medicine: [place] [address] XRay Report Signed Patient: JOSEPH GARCES MR#: [id number] : 1970 Acct:[id number] Age/Sex: 53 / M ADM Date: 04/20/24 Loc: EC Attending Dr: Jocelyn Gooden Ordering Physician: Harriett Gooden Date of Service: 04/20/24 Procedure(s): XR ank le LT min 3V Accession Number(s): [id number] cc: Venus Mendez M.D. ; Harriett Gooden [place] [address] Patient Name: MATTY GARCES MRN: [id number] date: 1970 Sex: M Assigned Patient Location: EC Current Patient Location: Accession/Order Numb er: [id number] Exam Date: 04/20/2024 14:13 Report Date: 04/24/2024 14:08 At the request of: HARRIETT GOODEN Procedure: XR ankle LT min 3V PROCEDURE: XR ankle LT min 3V COMPARISON: 04/04/2024 HISTORY: LEFT ANKLE PAIN FINDINGS: BONES:Stable complex distal fibular fracture with internal fixation utilizing a lateral plate and sc rews. Fusion across the superior tibiofibular syndesmosis. No mechanical failur e. Moderate enthesopathic spurring of the calcaneus at the Achilles insertion. Minimal interval bone formation SOFT TISSUES:Mild an kle soft tissue swelling EFFUSION:Ankle joint effusion OTHER: Negative. X R/XR ankle LT min 3V IMPRESSION: Stable healing fibul ar fracture with internal fixation Electronically authenticated by: ALVINA CAICEDO Date: 04/24/2024 14:08 Dictated By: Donald Caicedo M.D. Signed By: 04/24/24 1411 DD/ 1408 TD/TT: Rn Internal Medicine: XR ankle LT min 3V Reviewed date:07/07/2024 12:32:16 PM Interpretation: Performing Lab: Notes/Report: Source Facility: [place] [address] [place] [address] XRay Report Signed Patient: MATTY GARCES MR#: [id number] : 1970 Acct:[id number] Age/Sex: 53 / M ADM Date: 05/23/24 Loc: EC Attending Dr: Clarisa Valljeo D.P.M. Ordering Physician: Clarisa Vallejo D.P.M. Date of Service: 05/23/24 Procedure(s): XR ankle LT min 3V Accession Number(s): [id number] cc: Clarisa Vallejo D.P.M.; Venus Mendez M.D. [facility] [place] [address] Patient Name: MATTY GARCES MRN: [id number] date: 1970 Sex: M Assigned Patient Location: EC Current Patient Location: Accession/Order Number: [id number] Exam Date: 05/23/2024 11:14 Report Date: 05/24/2024 10:32 At the request of: CLARISA VALLEJO Procedure: XR ankle LT min 3V PROCEDURE: XR ankle LT min 3V HISTORY: LEFT ANKLE PAIN COMPARISON: XR ankle left 05/02/2024 FINDINGS: BONES:Prior distal fibular fracture with lateral plate and screw repair and fusion of the tibial-fibular syndesmosis. Minimal increased density of the fracture line suggesting early bone healing. SOFT TISSUES:No visible soft tissue swelling. EFFUSION:None visible. OTHER: Negative. XR/XR ankle LT min 3V IMPRESSION: 1. Stable surgical repair of distal fibular fracture without evidence of hardware failure or change in alignment. 2. Changes of early bone healing. Electronically authenticated by: SHY DAVIS Date: 05/24/2024 10:32 Dictated By: Shy Davis M.D. Signed By: 05/24/24 1034 DD/ 1032 TD/TT: Rn Internal Medicine: [place] [address] XRay Report Signed Patient: JOSEPH GARCES MR#: [id number] : 1970 Acct:[id number] Age/Sex: 53 / M ADM Date: 05/23/24 Loc: EC Attending Dr: Clarisa Vallejo D.P.M. Ordering Physician: Clarisa Vallejo D.P.M. Date of Service: 05/23/24 Procedure(s): XR ank le LT min 3V Accession Number(s): [id number] cc: Clarisa Vallejo D.P.M.; Venus Mendez M.D. The [place] [id number] Patient Name: MATTY GARCES MRN: [id number]:[id number] date: 1970 Sex: M Assigned Patient Location: Current Patient Location: Accession/Order Numb er: [id number] Exam Date: 05/23/2024 11:14 Report Date: 05/24/2024 10:32 At the request of: CLARISA VALLEJO Procedure: XR ankle LT min 3V PROCEDURE: XR ankle LT min 3V HISTORY: LEFT ANKLE PAIN COMPARISON: XR ankle left 05/02/2024 FINDINGS: BONES:Prior distal fibular fracture with lateral plate and screw repair and fusion of the tibial-fibular syndesmosis. Minimal increased density of the fracture line sugges ting early bone healing. SOFT TISSUES:No visi ble soft tissue swelling. EFFUSION:None visible. OTHER: Negative. X R/XR ankle LT min 3V IMPRESSION: 1. Stable surgical r epair of distal fibular fracture without evidence of hardware failure or change in alignment. 2. Changes of early bone healing. Electronically authenticated by: SHY DAVIS Date: 05/24/2024 10:32 Dictated By: Shy Davis M.D. Signed By: 05/24/24 1034 DD/ 1032 TD/TT: Rn Internal Medicine: PROF Deutsch(COMP METB) Reviewed date:03/16/2024 12:55:11 PM Interpretation: Performing Lab: Notes/Report: [facility] , Sodium 135 136-145 mmol/L Potassium 3.8 3.5-5.1 mmol/L Chloride 98 98-107 mmol/L Carbon Dioxide 31.1 21.0-32.0 mmol/L Anion Gap 9.7 Glucose 103 74-106 mg/dL Blood Urea Nitrogen 9.0 7.0-18.0 mg/dL Creatinine 0.99 0.70-1.30 mg/dL Estimated GFR ( Elizabeth >60 >=60 Estimated GFR (Non- Gwen >60 >=60 BUN Creatinine Ratio 9.1 Calcium 9.1 8.5-10.1 mg/dL Bilirubin Total 0.8 0.2-1.0 mg/dL Aspartate Amino Transferase 16 15-37 U/L Alanine Aminotransferase 25 16-63 U/L Alkaline Phosphatase 101 46-116 U/L Total Protein 7.2 6.4-8.2 g/dL Albumin Level 3.0 3.4-5.0 g/dL Globulin 4.2 Albumin Globulin Ratio 0.7 Performing Lab: see note ML - [facility] LB CBC AUTO DIFF Reviewed date:03/16/2024 12:55:11 PM Interpretation: Performing Lab: Notes/Report: [facility] , White Blood Count 10.3 4.0-11.0 10 3/uL Red Blood Count 5.46 4.70-6.10 10 6/uL Hemoglobin 14.4 14.0-18.0 g/dL Hematocrit 47.3 42.0-54.0 % Mean Corpuscular Volume 86.6 80.0-94.0 fL Mean Corpuscular Hemoglobin 26.4 25.9-34.0 pg Mean Corpuscular HGB Conc 30.4 29.9-35.2 g/dL Red Cell Distribution Width 16.9 11.0-15.0 % Platelet Count 155 150-450 10 3/uL Mean Platelet Volume 10.1 9.5-13.5 fL Neutrophils Percent Auto 79.4 43.0-75.0 % Lymphocytes Percent Auto 6.3 20.5-60.0 % Monocytes Percent Auto 9.7 1.7-12.0 % Eosinophils Percent Auto 2.9 0.9-7.0 % Basophils Percent Auto 0.6 0.2-2.0 % Immature Granulocytes Pct Auto 1.1 0.0-0.5 % Neutrophils Absolute Auto 8.1 1.4-6.5 10 3/uL Lymphocytes Absolute Auto 0.7 1.2-3.8 10 3/uL Monocytes Absolute Auto 1.0 0.3-0.8 10 3/uL Eosinophils Absolute Auto 0.3 0.0-0.7 10 3/uL Basophils Absolute Auto 0.1 0.0-0.1 10 3/uL Immature Granulocytes Abs Auto 0.11 0.00-0.03 10 3/uL Performing Lab: see note ML - [facility] LB XR chest 1V Reviewed date:03/14/2024 10:15:23 PM Interpretation: Performing Lab: Notes/Report: Source Facility: [place] [address] [place] [address] XRay Report Signed Patient: MATTY GARCES MR#: [id number] : 1970 Acct:[id number] Age/Sex: 53 / M ADM Date: 03/14/24 Loc: MS 221-[address]: Venus Mendez M.D. Ordering Physician: Venus Mendez M.D. Date of Service: 03/14/24 Procedure(s): XR chest 1V Accession Number(s): [id number] cc: Venus Mendez M.D. [place] [address] Patient Name: MATTY GARCES MRN: [id number]:[id number] date: 1970 Sex: M Assigned Patient Location: ME Current Patient Location: ME Accession/Order Number: [id number] Exam Date: 03/14/2024 13:10 Report Date: 03/14/2024 13:40 At the request of: VENUS MENDZE Procedure: XR chest 1V EXAMINATION: XR chest 1V HISTORY: Dyspnea COMPARISON: No relevant comparison available. FINDINGS: LUNGS: No significant pulmonary parenchymal abnormalities. VASCULATURE: No increased pulmonary vasculature. PLEURA: No pneumothorax, effusion, or pleural thickening. CARDIAC: No cardiomegaly or cardiac silhouette abnormality. MEDIASTINUM: No visible mass or adenopathy. BONES: Prior mechanical fusion of lower cervical spine. OTHER: Negative. XR/XR chest 1V IMPRESSION: 1. No acute cardiopulmonary process. Electronically authenticated by: SHY DAVIS Date: 03/14/2024 13:40 Dictated By: Shy Davis M.D. Signed By: 03/14/24 1342 DD/ 1340 TD/TT: Rn Internal Medicine: [place] [address] XRay Report Signed Patient: JOSEPH GARCES MR#: [id number] : 1970 Acct:[id number] Age/Sex: 53 / M ADM Date: 03/14/24 Loc: MS 221-[address]: Jim Mendez M.D. Ordering Physician: Venus Mendez M.D. Date of Service: 03/14/24 Procedure(s): XR chest 1V Accession Number(s): [id number] cc: Venus Mendez M.D. [place] [address] Patient Name: MATTY GARCES MRN: [id number] date: 1970 Sex: M Assigned Patient Location: MS Current Patient Loca tion: MS Accession/Order Numb er: [id number] Exam Date: 03/14/2024 13:10 Report Date: 03/14/2024 13:40 At the request of: VENUS MENDEZ Procedure: XR chest 1V EXAMINATION: XR chest 1V HISTORY: Dyspnea COMPARISON: No relev ant comparison available. FINDINGS: LUNGS: No significan t pulmonary parenchymal abnormalities. VASCULATURE: No incr eased pulmonary vasculature. PLEURA: No pneumotho rax, effusion, or pleural thickening. CARDIAC: No cardiome joslyn or cardiac silhouette abnormality. MEDIASTINUM: No visi ble mass or adenopathy. BONES: Prior mechani shira fusion of lower cervical spine. OTHER: Negative. X R/XR chest 1V IMPRESSION: 1. No acute cardiopulmonary process. Electronically authenticated by: SHY DAVIS Date: 03/14/2024 13:40 Dictated By: Shy Davis M.D. Signed By: 03/14/24 1342 DD/ 1340 TD/TT: Rn Internal Medicine: XR ankle LT min 3V Reviewed date:03/16/2024 12:55:11 PM Interpretation: Performing Lab: Notes/Report: Source Facility: [facility]-[address] [place] [address] [place] [address] XRay Report Signed Patient: MATTY GARCES MR#: [id number] : 1970 Acct:[id number] Age/Sex: 53 / M ADM Date: 03/14/24 Loc: MS 221-[address]: Venus Mendez M.D. Ordering Physician: Antonina Guerrier D.P.M. Date of Service: 03/15/24 Procedure(s): XR ankle LT min 3V Accession Number(s): [id number] cc: Venus Mendez M.D.; Antonina Guerrier D.P.M. [address] [address] Patient Name: MATTY GARCES MRN: [facility]:[id number] date: 1970 Sex: M Assigned Patient Location: MS Current Patient Location: Accession/Order Number: [id number] Exam Date: 03/15/2024 16:00 Report Date: 03/15/2024 21:35 At the request of: ANTONINA GUERRIER Procedure: XR ankle LT min 3V Exam: Radiographs: XR ankle LT min 3V Reason for exam: postop xr pacu Comparison: Plain films from yesterday XR/XR ankle LT min 3V IMPRESSION: New plate and screw internal fixation of the distal left fibula fracture with syndesmotic screws. Expected postoperative soft tissue emphysema and swelling. Overlying cast material. Tibiotalar joint degenerative change. Remainder unremarkable. Electronically authenticated by: MICHAEL CASANOVA Date: 03/15/2024 21:35 Dictated By: Michael Casanova M.D. Signed By: 03/15/242137 DD/ 34 TD/TT: Rn Internal Medicine: [place] [address] XRay Report Signed Patient: JOSEPH GARCES MR#: [id number] : 1970 Acct:[id number] Age/Sex: 53 / M ADM Date: 03/14/24 Loc: MS 221-[address]: Jim Mendez M.D. Ordering Physician: Antonina Guerrier D.P.M. Date of Service: 03/15/24 Procedure(s): XR ank le LT min 3V Accession Number(s): [id number] cc: Venus Mendez M.D. ; Antonina Guerrier D.P.M. [place] [address] Patient Name: MATTY GARCES MRN: [id number]:[id number] date: 1970 Sex: M Assigned Patient Location: MS Current Patient Location: Accession/Order Numb er: [id number] Exam Date: 03/15/2024 16:00 Report Date: 03/15/2024 21:35 At the request of: ANTONINA GUERRIER Procedure: XR ankle LT min 3V Exam: Radiographs: X R ankle LT min 3V Reason for exam: pos top xr pacu Comparison: Plain fi lms from yesterday X R/XR ankle LT min 3V IMPRESSION: New plate and screw internal fixation of the distal left fibula fracture with syndesmotic screws. Expected postoperative soft tissue emphysema and swelling. Overlying cast mater ial. Tibiotalar joint degenerative change. Remainder unremarkable. Electronically authenticated by: MICHAEL CASANOVA Date: 03/15/2024 21:35 Dictated By: Jack Casanova M.D. Signed By: 03/15/242137 DD/ 34 TD/TT: Rn Internal Medicine: CARISSA chandler Reviewed date:03/14/2024 10:15:23 PM Interpretation: Performing Lab: Notes/Report: Source Facility: [place] [address] Cardiology Report Signed Patient: MATTY GARCES MR#: [id number] : 1970 Acct:[id number] Age/Sex: 53 / M ADM Date: 03/14/24 Loc: MS 221-[address]: Venus Mendez M.D. Ordering Physician: Venus Mendez M.D. Date of Service: 03/14/24 Procedure(s): CARISSA echo limited Accession Number(s): [id number] cc: Venus Mendez M.D. Patient Name: MATTY GARCES MR#: [id number] : 1970 Exam Date: 03/14/2024 Ordering Doctor: DR Venus Mendez . ECHOCARDIOGRAM REPORT PROCEDURE: CA ECHO LIMITED INDICATIONS: pre-op , hx pulm hypertension COMPARISON: None. DESCRIPTION: Limited ECHOCARDIOGRAM Real-time transthoracic echocardiography with 2D and M-mode performed. QUALITY: Technical quality was adequate. LEFT VENTRICLE: Normal chamber size. Moderate concentric left ventricular hypertrophy. Global left ventricular systolic function is at the lower limits of normal. LV EF: Visual estimation of left ventricular ejection fraction is 50-55%. DIASTOLIC: ATRIAL SEPTUM: LEFT ATRIUM: Normal chamber size. RIGHT ATRIUM: Mild dilatation. RIGHT VENTRICLE: Normal chamber size. Normal right ventricular systolic function. TRICUSPID VALVE: Normal mobility and thickness. No evidence of pulmonary hypertension. RVSP 15 mmHg MITRAL VALVE: Mildly thickened with normal mobility. AORTIC VALVE: Normal trileaflet appearance. Normal leaflet mobility. AORTIC ROOT: Normal diameter and appearance. PULMONIC VALVE: Not well visualized. PERICARDIUM: No evidence of pericardial effusion. IVC: Collapses with inspirations. Normal size. PLEURA: CONCLUSION: 1. Moderate concentric left ventricular hypertrophy with low normal systolic function. Estimated LVEF is 50 to 55%. 2. Normal right ventricular size and systolic function. 3. Normal right-sided pressures. 4. No pericardial effusion. 5. Limited study performed with limited Doppler interrogation as requested. Adult Echocardiography Procedure Report Left Ventricle LVEDD (3.7 - 5.6 cm): 4.73 cm LVESD (2.2 - 4.0 cm): 3.70 cm LVIVS thickness (0.6 - 1.2 cm): 1.40 cm LVPW thickness (0.5 - 1.0 cm): 1.41 cm LVOT Diameter 2.01 cm Left Ventricular Ejection Fraction: 50-55% Left Atrium LA Volume Index (2D A2C): 33.48 ml/m2 Left Atrium Systolic Dimension: 3.88 cm Mitral Valve Right Ventricle RV Internal Diastolic Dimension: 3.11 cm Aorta AO Root Diam: 3.04 cm Ascending Ao Diam: 2.85 cm Aortic Valve Tricuspid Valve Peak Velocity (Regurgitant Flow): 1.44 m/s, 1.73 m/s Pulmonic Valve Right Atrium Right Atrium Systolic Pressure: 51.29 ml, 51.29 ml Dictated by: Ramiro Walls M.D. on 03/14/2024 at 15:09 Approved by: Ramiro Walls M.D. on 03/14/2024 at 15:13 Dictated By: RAMIRO WALLS Signed By: 03/14/24 1514 DD/ 151 TD/TT: Rn Internal Medicine: [place] [address] Cardiology Report Signed Patient: JOSEPH GARCES MR#: [id number] : 1970 Acct:[id number] Age/Sex: 53 / M ADM Date: 03/14/24 Loc: MS 221-[address]: Jim Mendez M.D. Ordering Physician: Venus Mendez M.D. Date of Service: 03/14/24 Procedure(s): CA ech o limited Accession Number(s): [id number] cc: Venus Mendez M.D. Patient Name: MATTY GARCES MR#: [id number] : 1970 Exam Date: 03/14/2024 Ordering Doctor: DR Venus Mendez . ECHOCARDIOGRAM REPORT PROCEDURE: CA ECHO LIMITED INDICATIONS: pre-op , hx pulm hypertension COMPARISON: None. DESCRIPTION: Limited ECHOCARDIOGRAM Real-time transthoracic echocardiography wit h 2D and M-mode performed. QUALITY: Technical quality was adequate. LEFT VENTRICLE: Norm al chamber size. Moderate concentric left ventricular hypertrophy. Global left ventricular systolic function is at the lower limits of normal. LV EF: Visual estima tion of left ventricular ejection fraction is 50-55%. DIASTOLIC: ATRIAL SEPTUM: LEFT ATRIUM: Normal chamber size. RIGHT ATRIUM: Mild dilatation. RIGHT VENTRICLE: Nor mal chamber size. Normal right ventricular systolic function. TRICUSPID VALVE: Nor mal mobility and thickness. No evidence of pulmonary hypertension. RVSP 1 5 mmHg MITRAL VALVE: Mildly thickened with normal mobility. AORTIC VALVE: Normal trileaflet appearance. Normal leaflet mobility. AORTIC ROOT: Normal diameter and appearance. PULMONIC VALVE: Not well visualized. PERICARDIUM: No evid ence of pericardial effusion. IVC: Collapses with inspirations. Normal size. PLEURA: CONCLUSION: 1. Moderate concentr ic left ventricular hypertrophy with low normal systolic function. Estimated LVEF is 50 to 55%. 2. Normal right ventricular size and systolic function. 3. Normal right-side d pressures. 4. No pericardial effusion. 5. Limited study performed with limited Doppler interrogation as requested. Adult Echocardiograp hy Procedure Report Left Ventricle LVEDD (3.7 - 5.6 cm) : 4.73 cm LVESD (2.2 - 4.0 cm) : 3.70 cm LVIVS thickness (0.6 - 1.2 cm): 1.40 cm LVPW thickness (0.5 - 1.0 cm): 1.41 cm LVOT Diameter 2.01 cm Left Ventricular Eje ction Fraction: 50-55% Left Atrium LA Volume Index (2D A2C): 33.48 ml/m2 Left Atrium Systolic Dimension: 3.88 cm Mitral Valve Right Ventricle RV Internal Diastoli c Dimension: 3.11 cm Aorta AO Root Diam: 3.04 cm Ascending Ao Diam: 2 .85 cm Aortic Valve Tricuspid Valve Peak Velocity (Regurgitant Flow): 1.44 m/s, 1.73 m/s Pulmonic Valve Right Atrium Right Atrium Systoli c Pressure: 51.29 ml, 51.29 ml Dictated by: Ramiro Walls M.D. on 03/14/2024 at 15:09 Approved by: Ramiro Walls M.D. on 03/14/2024 at 15:13 Dictated By: RAMIRO WALLS Signed By: 03/14/24 1514 DD/ 1513 TD/TT: Rn Internal Medicine: ECG 12 lead Reviewed date:03/16/2024 12:55:11 PM Interpretation: Performing Lab: Notes/Report: Source Facility: [place] [address] [place] [address] Electrocardiograph Report Signed Patient: MATTY GARCES MR#: [id number] : 1970 Acct:[id number] Age/Sex: 53 / M ADM Date: 03/14/24 Loc: MS 221-[address]: Venus Mendez M.D. Ordering Physician: Venus Mendez M.D. Date of Service: 03/14/24 Procedure(s): ECG 12 lead Accession Number(s): [id number] cc: [facility] Test Date: 2024-03-14 Pat Name: MATTY GARCES Department: Room: [facility] Gender: Male Crown [place]: : 1970 Requested By: VENUS MENDEZ Order Number: [id number] Reading MD: KENNETH ROWE Measurements Intervals [place] Rate: 74 P: 42 [place]: 173 QRS: 18 QRSD: 98 T: 52 QT: 391 QTc: 434 Interpretive Statements SINUS RHYTHM NONSPECIFIC T-WAVE ABNORMALITY Compared to ECG 12/28/2023 09:59:58 T-wave abnormality now present Electronically Signed On 03-15-2024 6:48:11 EDT by KENNETH ROWE Dictated By: Kenneth Rowe D.O. Signed By: 03/15/2448 DD/ 47 TD/TT: Rn Internal Medicine: [place] [address] Electrocardiograph Report Signed Patient: JOSEPH GARCES MR#: [id number] : 1970 Acct:[id number] Age/Sex: 53 / M ADM Date: 03/14/24 Loc: MS 221- Attending Dr: Jim Mendez M.D. Ordering Physician: Venus Mendez M.D. Date of Service: 03/14/24 Procedure(s): ECG 12 lead Accession Number(s): [id number] cc: [facility] Test Date: 2024-03-14 Pat Name: MATTY GÓMEZ IN Department: 53 Room: [facility] Gender: Male Crown Buffer: : 1970 Requ ested By: VENUS MENDEZ Order Number: [id number] Reading MD: KENNETH ROWE Measurements Intervals [place] Rate: 74 P: 42 [place]: 173 QRS: 18 QRSD: 98 T: 52 QT: 391 QTc: 434 Interpretive Statements SINUS RHYTHM NONSPECIFIC T-WAVE ABNORMALITY Compared to ECG 12/28/2023 09:59:58 T-wave abnormality n ow present Electronically Donna d On 03-15-2024 6:48:11 EDT by KENNETH ROWE Dictated By: Kenneth Rowe D.O. Signed By: 03/15/2448 DD/ TD/TT: Rn Internal Medicine: JACKY Marshall Reviewed date:03/14/2024 10:15:23 PM Interpretation: Performing Lab: Notes/Report: Source Facility: [place] [address] [place] [id number] XRay Report Signed Patient: MATTY GARCES MR#: [id number] : 1970 Acct:[id number] Age/Sex: 53 / M ADM Date: 03/14/24 Loc: ER Attending Dr: Ordering Physician: Sera Wayne M.D. Date of Service: 03/14/24 Procedure(s): XR knee LT 3V Accession Number(s): [id number] cc: Venus Mendez M.D.; Sera Wayne M.D. [place] [address] Patient Name: MATTY GARCES MRN: [id number] date: 1970 Sex: M Assigned Patient Location: ER Current Patient Location: ER Accession/Order Number: [id number] Exam Date: 03/14/2024 07:45 Report Date: 03/14/2024 08:16 At the request of: SERA WAYNE Procedure: XR knee LT 3V PROCEDURE: XR knee LT 3V HISTORY: fall COMPARISON: None. FINDINGS: BONES:Chronic, prominent degenerative enthesophyte along the anterior margin of patella and evidence of prior [place]-Schlatter syndrome along the proximal anterior margin of tibial tuberosity. SOFT TISSUES:Soft tissue thickening anterior to the patella. EFFUSION:Small joint effusion. OTHER: Negative. XR/XR knee LT 3V IMPRESSION: 1. Anterior soft tissue thickening suggestive of prepatellar bursitis. 2. Small joint effusion. 3. No acute bone abnormality. Electronically authenticated by: SHY DAVIS Date: 03/14/2024 08:16 Dictated By: Shy Davis M.D. Signed By: 03/14/24817 DD/ 5 TD/TT: Rn Internal Medicine: [place] [address] XRay Report Signed Patient: JOSEPH GARCES MR#: [id number] : 1970 Acct:[id number] Age/Sex: 53 / M ADM Date: 03/14/24 Loc: ER Attending Dr: Ordering Physician: Sera Wayne M.D. Date of Service: 03/14/24 Procedure(s): XR kne e LT 3V Accession Number(s): [id number] cc: Venus Mendez M.D. ; Sera Wayne M.D. [place] [id number] Patient Name: MATTY GARCES MRN: [facility]:[id number] date: 1970 Sex: M Assigned Patient Location: ER Current Patient Loca tion: ER Accession/Order Numb er: [id number] Exam Date: 03/14/2024 07:45 Report Date: 03/14/2024 08:16 At the request of: SERA WAYNE Procedure: XR knee LT 3V PROCEDURE: XR knee LT 3V HISTORY: fall COMPARISON: None. FINDINGS: BONES:Chronic, promi nent degenerative enthesophyte along the anterior margin of patella and evidence of prior [place]-Schlatter syndrome along the proximal anterior margin of t ibial tuberosity. SOFT TISSUES:Soft ti ssue thickening anterior to the patella. EFFUSION:Small joint effusion. OTHER: Negative. X R/XR knee LT 3V IMPRESSION: 1. Anterior soft tis abdifatah thickening suggestive of prepatellar bursitis. 2. Small joint effusion. 3. No acute bone abnormality. Electronically authenticated by: SHY DAVIS Date: 03/14/2024 08:16 Dictated By: Shy Davis M.D. Signed By: 03/14/24817 DD/ 5 TD/TT: Rn Internal Medicine: Troponin I High Sensitivity Reviewed date:03/14/2024 10:15:23 PM Interpretation: Performing Lab: Notes/Report: [facility] , Troponin I High Sensitivity 8.6 4.0-76.1 pg/mL CUT-OFF POINTS HAVE BEEN ESTABLISHED BASED ON THE FOURTH UNIVERSAL DEFINITION OF MYOCARDIAL INFARCTION. THE UPPER REFERENCE LIMIT (URL) OF TROPONIN, DEFINED THE 99TH PERCENTILE OF cTnI DISTRIBUTION IN A REFERENCE POPULATION, HAS BEEN CONFIRMED THE DECISION THRESHOLD FOR DC DIAGNOSIS. 99TH PERCENTILE = 76.2 PG/ML NOTE: HIGH-SENSITIVITY TROPONIN ASSAY IS NOT INTENDED TO BE USED IN ISOLATION BUT SHOULD BE INTERPRETED IN CONJUNCTION WITH OTHER DIAGNOSTIC AND CLINICAL INFORMATION. Performing Lab: see note ML - [facility] Prothrombin Time INR Reviewed date:03/14/2024 10:15:23 PM Interpretation: Performing Lab: Notes/Report: [facility] , Prothrombin Time 12.1 9.0-11.6 sec INR 1.16 DESIRED INR: 2.0-3.0 CONDITIONS NOT LISTED BELOW 2.5-3.5 FOR PROSTHETIC HEART VALVE REPLACEMENT 2.5-3.5 RECURRENT THROMBOSIS Performing Lab: see note ML - [facility] LB PTT Reviewed date:03/14/2024 10:15:23 PM Interpretation: Performing Lab: Notes/Report: [facility] , Partial Thromboplastin Time 35.1 22.3-36.2 sec Performing Lab: see note [facility] PROF CHEM 8 (BAS METB) Reviewed date:03/14/2024 10:15:23 PM Interpretation: Performing Lab: Notes/Report: [facility] , Sodium 138 136-145 mmol/L Potassium 3.6 3.5-5.1 mmol/L Chloride 99 98-107 mmol/L Carbon Dioxide 31.1 21.0-32.0 mmol/L Anion Gap 11.5 Glucose 107 74-106 mg/dL Blood Urea Nitrogen 12.0 7.0-18.0 mg/dL Creatinine 1.04 0.70-1.30 mg/dL Estimated GFR ( Elizabeth >60 >=60 Estimated GFR (Non- Gwen >60 >=60 BUN Creatinine Ratio 11.5 Calcium 9.3 8.5-10.1 mg/dL Performing Lab: see note ML - [facility] LB MAGNESIUM Reviewed date:03/14/2024 10:15:23 PM Interpretation: Performing Lab: Notes/Report: [facility] , Magnesium 2.2 1.8-2.4 mg/dL Performing Lab: see note - [facility] GLYCOHEMOGLOBIN A1C Reviewed date:08/05/2024 10:32:26 AM Interpretation: Performing Lab: Notes/Report: [facility] , Glycohemoglobin A1C 6.3 4.5-6.2 % ADA RECOMMENDED LIMIT 4.0 - 6.0 ADA THERAPEUTIC TARGET < 7.0 ACTION SUGGESTED > 7.0 Estimated Average Glucose 134 Performing Lab: see note ML - [facility] LB CRP Reviewed date:10/08/2024 12:37:32 PM Interpretation: Performing Lab: Notes/Report: [facility] , C Reactive Protein 2.61 <=0.50 mg/dL Performing Lab: see note ML - [facility] LB CBC AUTO DIFF Reviewed date:10/08/2024 12:37:32 PM Interpretation: Performing Lab: Notes/Report: [facility] , White Blood Count 8.8 4.0-11.0 10 3/uL Red Blood Count 4.74 4.70-6.10 10 6/uL Hemoglobin 12.7 14.0-18.0 g/dL Hematocrit 41.7 42.0-54.0 % Mean Corpuscular Volume 88.0 80.0-94.0 fL Mean Corpuscular Hemoglobin 26.8 25.9-34.0 pg Mean Corpuscular HGB Conc 30.5 29.9-35.2 g/dL Red Cell Distribution Width 15.7 11.0-15.0 % Platelet Count 251 150-450 10 3/uL Mean Platelet Volume 9.1 9.5-13.5 fL Neutrophils Percent Auto 80.6 43.0-75.0 % Lymphocytes Percent Auto 8.9 20.5-60.0 % Monocytes Percent Auto 6.6 1.7-12.0 % Eosinophils Percent Auto 1.7 0.9-7.0 % Basophils Percent Auto 0.8 0.2-2.0 % Immature Granulocytes Pct Auto 1.4 0.0-0.5 % Neutrophils Absolute Auto 7.1 1.4-6.5 10 3/uL Lymphocytes Absolute Auto 0.8 1.2-3.8 10 3/uL Monocytes Absolute Auto 0.6 0.3-0.8 10 3/uL Eosinophils Absolute Auto 0.2 0.0-0.7 10 3/uL Basophils Absolute Auto 0.1 0.0-0.1 10 3/uL Immature Granulocytes Abs Auto 0.12 0.00-0.03 10 3/uL Performing Lab: see note ML - [facility] LB PROF 14(COMP METB) Reviewed date:10/05/2024 06:15:03 PM Interpretation: Performing Lab: Notes/Report: [facility] , Sodium 135 136-145 mmol/L Potassium 3.7 3.5-5.1 mmol/L Chloride 98 98-107 mmol/L Carbon Dioxide 34.8 21.0-32.0 mmol/L Anion Gap 5.9 Glucose 96 74-106 mg/dL Blood Urea Nitrogen 9.0 7.0-18.0 mg/dL Creatinine 1.08 0.70-1.30 mg/dL Estimated GFR ( Elizabeth >60 >=60 mL/min/1.73m 2 Estimated GFR (Non- Gwen >60 >=60 mL/min/1.73m 2 BUN Creatinine Ratio 8.3 Calcium 9.6 8.5-10.1 mg/dL Bilirubin Total 0.7 0.2-1.0 mg/dL Aspartate Amino Transferase 25 15-37 U/L Alanine Aminotransferase 28 16-63 U/L Alkaline Phosphatase 134 46-116 U/L Total Protein 7.6 6.4-8.2 g/dL Albumin Level 3.2 3.4-5.0 g/dL Globulin 4.4 Albumin Globulin Ratio 0.7 Performing Lab: see note ML - [facility] LB CBC AUTO DIFF Reviewed date:10/05/2024 06:15:03 PM Interpretation: Performing Lab: Notes/Report: [facility] , White Blood Count 9.1 4.0-11.0 10 3/uL Red Blood Count 4.63 4.70-6.10 10 6/uL Hemoglobin 12.5 14.0-18.0 g/dL Hematocrit 40.0 42.0-54.0 % Mean Corpuscular Volume 86.4 80.0-94.0 fL Mean Corpuscular Hemoglobin 27.0 25.9-34.0 pg Mean Corpuscular HGB Conc 31.3 29.9-35.2 g/dL Red Cell Distribution Width 15.3 11.0-15.0 % Platelet Count 240 150-450 10 3/uL Mean Platelet Volume 9.2 9.5-13.5 fL Neutrophils Percent Auto 77.2 43.0-75.0 % Lymphocytes Percent Auto 9.8 20.5-60.0 % Monocytes Percent Auto 7.7 1.7-12.0 % Eosinophils Percent Auto 2.2 0.9-7.0 % Basophils Percent Auto 0.8 0.2-2.0 % Immature Granulocytes Pct Auto 2.3 0.0-0.5 % Neutrophils Absolute Auto 7.0 1.4-6.5 10 3/uL Lymphocytes Absolute Auto 0.9 1.2-3.8 10 3/uL Monocytes Absolute Auto 0.7 0.3-0.8 10 3/uL Eosinophils Absolute Auto 0.2 0.0-0.7 10 3/uL Basophils Absolute Auto 0.1 0.0-0.1 10 3/uL Immature Granulocytes Abs Auto 0.21 0.00-0.03 10 3/uL Performing Lab: see note ML - [facility] LB LACTATE or LACTIC ACID Reviewed date:10/08/2024 12:37:32 PM Interpretation: Performing Lab: Notes/Report: [facility] , Lactate/Lactic Acid 2.0 0.4-2.0 mmol/L Performing Lab: see note [facility] LB PROF 14(COMP METB) Reviewed date:10/08/2024 12:37:32 PM Interpretation: Performing Lab: Notes/Report: [facility] , Sodium 140 136-145 mmol/L Potassium 3.9 3.5-5.1 mmol/L Chloride 100 98-107 mmol/L Carbon Dioxide 35.2 21.0-32.0 mmol/L Anion Gap 8.7 Glucose 98 74-106 mg/dL Blood Urea Nitrogen 12.0 7.0-18.0 mg/dL Creatinine 1.29 0.70-1.30 mg/dL Estimated GFR ( Elizabeth >60 >=60 mL/min/1.73m 2 Estimated GFR (Non- Gwen 58 >=60 mL/min/1.73m 2 BUN Creatinine Ratio 9.3 Calcium 9.7 8.5-10.1 mg/dL Bilirubin Total 0.6 0.2-1.0 mg/dL Aspartate Amino Transferase 19 15-37 U/L Alanine Aminotransferase 23 16-63 U/L Alkaline Phosphatase 151 46-116 U/L Total Protein 7.6 6.4-8.2 g/dL Albumin Level 3.3 3.4-5.0 g/dL Globulin 4.3 Albumin Globulin Ratio 0.8 Performing Lab: see note ML - [facility] LB Blood Culture 1 Reviewed date:10/14/2024 04:42:10 PM Interpretation: Performing Lab: Notes/Report: RIGHT AC [facility] , Blood Culture 1 See Below For Report Blood Culture 1 NG5D NO GROWTH AT 5 DAYS. Performing Lab: see note - [facility] LB Blood Culture 2 Reviewed date:10/14/2024 04:42:10 PM Interpretation: Performing Lab: Notes/Report: LEFT AC [facility] , Blood Culture 2 See Below For Report Blood Culture 2 NG5D NO GROWTH AT 5 DAYS. Performing Lab: see note - [facility] LB Venous Blood Gas Reviewed date:10/08/2024 12:37:32 PM Interpretation: Performing Lab: Notes/Report: [facility] , pH VBG 7.444 7.330-7.430 PCO2 VBG 51.7 40.0-52.0 mmHg Performing Lab: see note [facility] US venous doppler LE BI Reviewed date:10/08/2024 12:37:32 PM Interpretation: Performing Lab: Notes/Report: Source Facility: [place] [address] Ultrasound Report Signed Patient: MATTY GARCES MR#: [id number] : 1970 Acct:[id number] Age/Sex: 54 / M ADM Date: 10/07/24 Loc: ER Attending Dr: Ordering Physician: Dwight Garrett Date of Service: 10/07/24 Procedure(s): US venous doppler LE RT Accession Number(s): [id number] cc: Venus Mendez M.D.; Dwight Garrett [place] [address] Patient Name: MATTY GARCES MRN: [id number] date: 1970 Sex: M Assigned Patient Location: ER Current Patient Location: ER Accession/Order Number: [id number] Exam Date: 10/07/2024 15:34 Report Date: 10/07/2024 16:42 At the request of: DWIGHT GARRETT Procedure: US venous doppler LE RT EXAM: US venous doppler LE RT HISTORY: DVT edema/erythema. Clinical suspicion of DVT. COMPARISON: 10/05/2024. TECHNIQUE: Evaluation right leg veins groin to proximal calf including deep veins saphenous vein at the groin with grayscale, color Doppler, spectral Doppler and compression evaluation. FINDINGS: Deep veins are well visualized from the groin to the proximal calf. Veins demonstrate normal color flow without thrombus or occlusion. Normal compressibility and augmentation. Saphenous vein at the groin is patent. No abnormal fluid collection. US/US venous doppler LE RT IMPRESSION: Negative study without DVT. No change. Electronically authenticated by: DWIGHT SAAB Date: 10/07/2024 16:42 Dictated By: Dwight Saab M.D. Signed By: 10/07/241643 DD/ 41 TD/TT: Rn Internal Medicine: [place] [address] Ultrasound Report Signed Patient: JOSEPH GARCES MR#: [id number] : 1970 Acct:[id number] Age/Sex: 54 / M ADM Date: 10/07/24 Loc: ER Attending Dr: Ordering Physician: Dwight Garrett Date of Service: 10/07/24 Procedure(s): US kamaljit ous doppler LE RT Accession Number(s): [id number] cc: Venus Mendez M.D. ; Dwight Garrett [place] [id number] Patient Name: MATTY GARCES MRN: [facility]:[id number] date: 1970 Sex: M Assigned Patient Location: ER Current Patient Loca tion: ER Accession/Order Numb er: [id number] Exam Date: 10/07/2024 15:34 Report Date: 10/07/2024 16:42 At the request of: DWIGHT GARRETT Procedure: US venous doppler LE RT EXAM: US venous dopp ler LE RT HISTORY: DVT edema/erythema. Clinical suspicion of DVT. COMPARISON: 10/05/2024. TECHNIQUE: Evaluatio n right leg veins groin to proximal calf including deep veins saphenous vein at the groin with grayscale, color Doppler, spectral Doppler and compress ion evaluation. FINDINGS: Deep veins are well visualized from the groin to the proximal calf. Veins demonstrate no rmal color flow without thrombus or occlusion. Normal compressibility and augmentation. Saphenous vein at the groin is patent. No abnormal fluid collection. U S/US venous doppler LE RT IMPRESSION: Negative study witho ut DVT. No change. Electronically authenticated by: DWIGHT SAAB Date: 10/07/2024 16:42 Dictated By: Dwight Saab M.D. Signed By: 10/07/241643 DD/ 41 TD/TT: Rn Internal Medicine: CBC AUTO DIFF Reviewed date:09/21/2024 01:02:57 PM Interpretation: Performing Lab: Notes/Report: [facility] , White Blood Count 7.5 4.0-11.0 10 3/uL Red Blood Count 5.23 4.70-6.10 10 6/uL Hemoglobin 14.2 14.0-18.0 g/dL Hematocrit 46.0 42.0-54.0 % Mean Corpuscular Volume 88.0 80.0-94.0 fL Mean Corpuscular Hemoglobin 27.2 25.9-34.0 pg Mean Corpuscular HGB Conc 30.9 29.9-35.2 g/dL Red Cell Distribution Width 15.3 11.0-15.0 % Platelet Count 190 150-450 10 3/uL Mean Platelet Volume 10.0 9.5-13.5 fL Neutrophils Percent Auto 76.9 43.0-75.0 % Lymphocytes Percent Auto 9.6 20.5-60.0 % Monocytes Percent Auto 10.3 1.7-12.0 % Eosinophils Percent Auto 1.5 0.9-7.0 % Basophils Percent Auto 0.5 0.2-2.0 % Immature Granulocytes Pct Auto 1.2 0.0-0.5 % Neutrophils Absolute Auto 5.8 1.4-6.5 10 3/uL Lymphocytes Absolute Auto 0.7 1.2-3.8 10 3/uL Monocytes Absolute Auto 0.8 0.3-0.8 10 3/uL Eosinophils Absolute Auto 0.1 0.0-0.7 10 3/uL Basophils Absolute Auto 0.0 0.0-0.1 10 3/uL Immature Granulocytes Abs Auto 0.09 0.00-0.03 10 3/uL Performing Lab: see note ML - [facility] LB BLOOD GASES BTY Reviewed date:09/21/2024 08:35:02 AM Interpretation: Performing Lab: Notes/Report: [facility] , pH ABG 7.419 7.350-7.450 ABG PCO2 55.6 35.0-45.0 mmHg RESULTS VILLARREAL D TO GLENDY JAMES RN at 0440 PO2 ABG 71.3 80.0-100.0 mmHg HCO3 ABG 36 22.0-26.0 mmol/L Base Excess ABG 11.5 -2.0-2.0 mmol/L Oxygen Saturation ABG 95.4 Mundo Test POSITIVE POSITIVE O2 Mode NASAL CANNULA Liters per Minute 3 Puncture Site RR Performing Lab: see note - [facility] LB XR ankle LT min 3V Reviewed date:09/21/2024 09:07:03 PM Interpretation: Performing Lab: Notes/Report: Source Facility: [facility]-[address] [place] [address] [place] [address] XRay Report Signed Patient: MATTY GARCES MR#: [id number] : 1970 Acct:[id number] Age/Sex: 53 / M ADM Date: 09/19/24 Loc: ICU 270-[address]: Venus Mendez M.D. Ordering Physician: Clarisa Vallejo D.P.M. Date of Service: 09/20/24 Procedure(s): XR ankle LT min 3V Accession Number(s): [id number] cc: Clarisa Vallejo D.P.M.; Venus Mendez M.D. [place] [address] Patient Name: MATTY GARCES MRN: [id number] date: 1970 Sex: M Assigned Patient Location: ICU Current Patient Location: ICU Accession/Order Number: [id number] Exam Date: 09/20/2024 20:45 Report Date: 09/20/2024 21:43 At the request of: CLARISA VALLEJO Procedure: XR ankle LT min 3V Examination:XR ankle LT min 3V, XR foot LT min 3V INDICATION:cellulitis COMPARISON:08/29/2024 x-rays of the left ankle and foot TECHNIQUE:3 left ankle and 3 left foot views are submitted. FINDINGS: Left ankle: Internal fixation hardware is present in the distal left ankle. There are syndesmotic screws extending across the distal tibia and fibula. These screws have surrounding lucency similar in appearance to the prior examination concerning for loosening of the hardware. There is similar hypertrophic changes. No definitive acute fractures are appreciated. There is significant soft tissue edema likely representing cellulitis. No bony erosive changes are present to suggest acute osteomyelitis. Left foot: No definitive acute fractures are present in the left foot. There are erosive changes involving the interphalangeal joint of the first toe. Septic arthropathy cannot be excluded. Subchondral cystic changes are present in the first metatarsophalangeal joint with the related to degenerative osteoarthritis. There is severe swelling of the first toe with extension proximally along the left foot. There is mild to moderate degeneration of the first metatarsophalangeal joint. There is a tiny curvilinear radiopaque foreign bodies projecting along the plantar surface of the hindfoot. Present on the previous exam. XR/XR ankle LT min 3V IMPRESSION: 1. No acute osseous abnormalities in the left ankle. Imaging findings are concerning for loosening of the syndesmotic screws. 2. Erosive changes in the interphalangeal joint of the first digit could potentially be secondary to septic arthropathy. 3. Severe soft tissue swelling in the left foot osseous loose secondary to cellulitis. Electronically authenticated by: LATISHA LARSEN Date: 09/20/2024 21:43 Dictated By: Latisha Larsen M.D. Signed By: 09/20/242144 DD/ 42 TD/TT: Rn Internal Medicine: [place] [address] XRay Report Signed Patient: JOSEPH GARCES MR#: [id number] : 1970 Acct:[id number] Age/Sex: 53 / M ADM Date: 09/19/24 Loc: ICU 270-[address]: Jim Mendez M.D. Ordering Physician: Clarisa Vallejo D.P.M. Date of Service: 09/20/24 Procedure(s): XR ank le LT min 3V Accession Number(s): [id number] cc: Clarisa Vallejo D.P.M.; Venus Mendez M.D. The [place] [id number] Patient Name: MATTY GARCES MRN: [id number] date: 1970 Sex: M Assigned Patient Location: ICU Current Patient Loca tion: ICU Accession/Order Numb er: [id number] Exam Date: 09/20/2024 20:45 Report Date: 09/20/2024 21:43 At the request of: CLARISA VALLEJO Procedure: XR ankle LT min 3V Examination:XR ankle LT min 3V, XR foot LT min 3V INDICATION:cellulitis COMPARISON: 4 x-rays of the left ankle and foot TECHNIQUE:3 left ank le and 3 left foot views are submitted. FINDINGS: Left ankle: Internal fixation hardware is present in the distal left ankle. There are syndesmoti c screws extending across the distal tibia and fibula. These screws have surrounding lucency similar in appearance to the prior examination concerni ng for loosening of the hardware. There is similar hypertrophic changes . No definitive acute fractures are appreciated. There is significant soft tis abdifatah edema likely representing cellulitis. No bony erosive changes are present to suggest acute osteomyelitis. Left foot: No defini tive acute fractures are present in the left foot. There are erosive changes involving the interphalangeal joint of the first toe. Septic arthropathy c annot be excluded. Subchondral cystic changes are present in the first metatarsophalangeal joint with the related to degenerative osteoarthritis. Ther e is severe swelling of the first toe with extension proximally along the left foot. There is mild to moderate degeneration of the first metatarsophala ngeal joint. There is a tiny curvilinear radiopaque foreign bodies projecting al khadijah the plantar surface of the hindfoot. Present on the previous exam. X R/XR ankle LT min 3V IMPRESSION: 1. No acute osseous abnormalities in the left ankle. Imaging findings are concerning for loose isaac of the syndesmotic screws. 2. Erosive changes i n the interphalangeal joint of the first digit could potentially be secon cele to septic arthropathy. 3. Severe soft tissu e swelling in the left foot osseous loose secondary to cellulitis. Electronically authenticated by: LATISHA LARSEN Date: 09/20/2024 21:43 Dictated By: Latisha Larsen M.D. Signed By: 09/20/242144 DD/ 42 TD/TT: Rn Internal Medicine: XR foot LT min 3V Reviewed date:09/21/2024 09:07:03 PM Interpretation: Performing Lab: Notes/Report: Source Facility: [place] [address] XRay Report Signed Patient: MATTY GARCES MR#: [id number] : 1970 Acct:[id number] Age/Sex: 53 / M ADM Date: 09/19/24 Loc: ICU [address]: Venus Mendez M.D. Ordering Physician: Clarisa Vallejo D.P.M. Date of Service: 09/20/24 Procedure(s): XR foot LT min 3V Accession Number(s): [id number] cc: Clarisa Vallejo D.P.M.; Venus Mendez M.D. [place] [address] Patient Name: MATTY GARCES MRN: [id number] date: 1970 Sex: M Assigned Patient Location: ICU Current Patient Location: ICU Accession/Order Number: [id number] Exam Date: 09/20/2024 20:45 Report Date: 09/20/2024 21:43 At the request of: CLARISA VALLEJO Procedure: XR foot LT min 3V Examination:XR ankle LT min 3V, XR foot LT min 3V INDICATION:cellulitis COMPARISON:08/29/2024 x-rays of the left ankle and foot TECHNIQUE:3 left ankle and 3 left foot views are submitted. FINDINGS: Left ankle: Internal fixation hardware is present in the distal left ankle. There are syndesmotic screws extending across the distal tibia and fibula. These screws have surrounding lucency similar in appearance to the prior examination concerning for loosening of the hardware. There is similar hypertrophic changes. No definitive acute fractures are appreciated. There is significant soft tissue edema likely representing cellulitis. No bony erosive changes are present to suggest acute osteomyelitis. Left foot: No definitive acute fractures are present in the left foot. There are erosive changes involving the interphalangeal joint of the first toe. Septic arthropathy cannot be excluded. Subchondral cystic changes are present in the first metatarsophalangeal joint with the related to degenerative osteoarthritis. There is severe swelling of the first toe with extension proximally along the left foot. There is mild to moderate degeneration of the first metatarsophalangeal joint. There is a tiny curvilinear radiopaque foreign bodies projecting along the plantar surface of the hindfoot. Present on the previous exam. XR/XR foot LT min 3V IMPRESSION: 1. No acute osseous abnormalities in the left ankle. Imaging findings are concerning for loosening of the syndesmotic screws. 2. Erosive changes in the interphalangeal joint of the first digit could potentially be secondary to septic arthropathy. 3. Severe soft tissue swelling in the left foot osseous loose secondary to cellulitis. Electronically authenticated by: LATISHA LARSEN Date: 09/20/2024 21:43 Dictated By: Latisha Larsen M.D. Signed By: 09/20/242144 DD/ 42 TD/TT: Rn Internal Medicine: [place] [address] XRay Report Signed Patient: JOSEPH GARCES MR#: [id number] : 1970 Acct:[id number] Age/Sex: 53 / M ADM Date: 09/19/24 Loc: ICU 270-[address]: Jim Mendez M.D. Ordering Physician: Clarisa Vallejo D.P.M. Date of Service: 09/20/24 Procedure(s): XR shahzad t LT min 3V Accession Number(s): [id number] cc: Clarisa Vallejo D.P.M.; Venus Mendez M.D. [address] [address] Patient Name: MATTY GARCES MRN: [id number] date: 1970 Sex: M Assigned Patient Location: ICU Current Patient Loca tion: ICU Accession/Order Numb er: [id number] Exam Date: 09/20/2024 20:45 Report Date: 09/20/2024 21:43 At the request of: CLARISA VALLEJO Procedure: XR foot L T min 3V Examination:XR ankle LT min 3V, XR foot LT min 3V INDICATION:cellulitis COMPARISON: 4 x-rays of the left ankle and foot TECHNIQUE:3 left ank le and 3 left foot views are submitted. FINDINGS: Left ankle: Internal fixation hardware is present in the distal left ankle. There are syndesmoti c screws extending across the distal tibia and fibula. These screws have surrounding lucency similar in appearance to the prior examination concerni ng for loosening of the hardware. There is similar hypertrophic changes . No definitive acute fractures are appreciated. There is significant soft tis abdifatah edema likely representing cellulitis. No bony erosive changes are present to suggest acute osteomyelitis. Left foot: No defini tive acute fractures are present in the left foot. There are erosive changes involving the interphalangeal joint of the first toe. Septic arthropathy c annot be excluded. Subchondral cystic changes are present in the first metatarsophalangeal joint with the related to degenerative osteoarthritis. Ther e is severe swelling of the first toe with extension proximally along the left foot. There is mild to moderate degeneration of the first metatarsophala ngeal joint. There is a tiny curvilinear radiopaque foreign bodies projecting al khadijah the plantar surface of the hindfoot. Present on the previous exam. X R/XR foot LT min 3V IMPRESSION: 1. No acute osseous abnormalities in the left ankle. Imaging findings are concerning for loose isaac of the syndesmotic screws. 2. Erosive changes i n the interphalangeal joint of the first digit could potentially be secon cele to septic arthropathy. 3. Severe soft tissu e swelling in the left foot osseous loose secondary to cellulitis. Electronically authenticated by: LATISHA LARSEN Date: 09/20/2024 21:43 Dictated By: Latisha Larsen M.D. Signed By: 09/20/242144 DD/ 42 TD/TT: Rn Internal Medicine: Reason For Referral Diagnosis 1 Impingement of shoul candido (M25.819) Referral Organization [facility] Referring Provider First Name Kareem Referring Provider Last Name Andrea Referring Provider Speciality [facility] icine Referred Provider [facility], Physical Therap y Referred Provider Specialty Physical Med icine and Rehabilitation Referral Priority Routine Diagnosis 1 Ankle pain (M25.579) Referral Organization [facility] Referring Provider First Name Kareem Referring Provider Last Name Andrea Referring Provider Speciality [facility] icine Referred Provider Clarisa Vallejo Referred Provider Specialty Podiatry Referral Priority Routine Medications Medication SIG (Take, Route, Frequency, Duration) Notes Start Date End Date Status Glycopyrrolate 1 mg TAKE ONE TABLET BY M OUTH TWICE A DAY for 30 Active Modafinil 200 MG 1 tablet in the morn ing Orally BID Active Furosemide 20 mg TAKE ONE TABLET BY M OUTH ONCE DAILY FOR 30 DAYS for 30 Active Meclizine HCl 12.5 MG 1 tablet as needed Orally prn every 12 hrs Active Multi For Him 50+ - as directed Orally Active Ondansetron 4 MG 1 tablet on the tong ue and allow to dissolve Orally Once a day Active Gabapentin 600 mg TAKE 1 TABLET BY ZACARIAS TH DAILY IN THE MORNING AND 2 TABLETS EVERYDAY IN THE EVENING for 30 Active hydrOXYzine Pamoate 25 MG 1 capsule at b edtime as needed Orally Q HS Active HYDROcodone-Acetaminophen 5-325 MG 1 tablet as needed Orally Q 8 hrs PRN for 7 days 04/04/2024 Active Carvedilol 25 MG 1 tablet with food O rally Twice a day for 30 days 10/31/2024 Active Biotin 10 MG 1 tablet Orally Once a day Active tiZANidine HCl 4 MG 1 tablet Orally at bedtime for 30 days 04/19/2023 Active Cholecalciferol 125 MCG (5000 UT) 1 tablet on the tongue and allow to dissolve Orally Once a day Active CeleXA 40 MG 1 tablet Orally Once a day for 30 days 07/06/2024 Active Doxazosin Mesylate 8 MG 1 tablet Orally Once a day for 90 days Active EpiPen 2-Doug 0.3 MG/0.3ML as directed In jection once 02/22/2025 Active clonazePAM 0.5 MG 1 tablet Orally Q HS Active Potassium Chloride ER 10 MEQ TAKE ONE TABLET BY MOUTH TWICE A DAY WITH FOOD for 30 Active Pantoprazole Sodium 40 MG 1 tablet Orall y Once a day for 30 days Active amLODIPine Besylate 5 mg TAKE ONE TABLET BY MOUTH ONCE DAILY IN THE MORNING for 30 Active Simvastatin 20 mg TAKE ONE TABLET BY M OUTH DAILY IN THE EVENING for 30 Active Amantadine HCl 100 MG 1 tablet Orally BI D for 30 days Active Sildenafil Citrate 50 MG 1 tablet as nee ded Orally Q 3 days for 10 days 04/04/2024 Active BD Luer-Yaquelin Syringe 23G X 1 3 ML USE DIRECTED to INJECT testosterone every 2 (TWO) weeks for 28 Active Testosterone Cypionate 200 MG/ML INJECT 1 AND 1/2 ML EVERY 2 WEEKS VIA INTRAMUSCULAR ROUTE for 28 01/07/2025 Active Aspirin 81 81 MG 1 tablet Orally Once a day Active SUMAtriptan Succinate 100 MG 1 tablet at least 2 hours between doses as needed Orally Twice a day Active Social History Tobacco Use: Social History Observation Description Date Details (start date - stop date) Never Smoker NA - NA Tobacco Use/Smoking Question Answer Notes Patient is a nonsmoker Alcohol Screen (Audit-C) Question Answer Notes Did you have a drink containing alcohol in the p ast year? No Points 0 Interpretation Negative AUDIT-C (Standard) Question Answer Notes Did you have a drink containing alcohol in the p ast year? No Points 0 Interpretation Negative Problems Problem Type SNOMED Code ICD Code Onset Dates Problem Status W/U Status Risk Notes Problem 14468061 Obstructive sleep apnea (adult) (pediatric) (G47.33) Active confirmed Problem Foot ulcer due to type 2 diabetes mellitus (6602450437181) Type 2 diabetes mellitus with foot ulcer (E11.621) Active confirmed Problem 071597889 Insomnia, unspecified (G47.00) Active confirmed Problem 4938301012915 Acute and chronic respiratory failure with hypercapnia (J96.22) Active confirmed Problem 044313474 Charcot's joint, left ankle and foot (M14.672) Active confirmed Problem Hypertension (45055134) Hypertension (I10) Active confirmed Problem Gastroesophageal reflux disease (495446283) GERD (gastroesophagea l reflux disease) (K21.9) Active confirmed Problem Carpal tunnel syndrome (14541670) Carpal tunnel syndrome (G56.00) Active confirmed Problem Anxiety (67617325) Anxiety (F41.9) Active confi rmed Problem Pneumonia (168986470) Pneumonia (J18.9) Active confirmed Problem Depression (007689206) Depression (F32.9) Active confirmed Problem Obstructive sleep apnea syndrome (94314388) PATEL (obstructive sleep apnea) (G47.33) Active confirmed Problem Insomnia (201191662) Insomnia (G47.00) Active confirmed Problem Migraine (27633497) Migraine (G43.909) Active confirmed Problem Lumbar radiculopathy (186763799) Lumbar radiculopathy (M54.16) Active confirmed Problem Hypersomnia (62519370) Hypersomnia (G47.10) Active confirmed Problem Lumbar spondylitis (M46.96) Active confirmed Problem Cervical disc disease (088518829) Cervical disc disease (M50.90) Active confirmed Problem Systolic murmur (34835883) Systolic murmur (I38) Active confirmed Problem Cellulitis (473064408) Cellulitis (L03.90) Active confirmed Problem Chronic pain (68503564) Chronic pain (G89.29) Active confirmed Problem Lateral epicondylitis (485094391) Lateral epicondylitis (M77.10) Active confirmed Problem Otitis externa (3432783) Otitis externa (H60.90) Active confirmed Problem Otitis externa of left ear (4660082382869036) Otitis externa of left ear (H60.92) Active confirmed Problem Arthralgia of the ankle and/or foot (770523932) Left ankle pain (M25.572) Active confirmed Problem Right upper quadrant pain (273772395) Right upper quadrant abdominal pain (R10.11) Active confirmed Problem Bursitis (27091582) Bursitis (M71.9) Active con firmed Problem Impotence (N52.9) Active confirmed Problem Decreased testosterone level (359981764) Decreased testosterone level (E29.1) Active confirmed Problem Left fibular fracture (S82.402A) Active confirmed Problem Ulcer of right foot (disorder) (950211112) Foot ulcer, right (L97.519) Active confirmed Problem Non-pressure chronic ulcer of other part of left foot with muscle involvement without evidence of necrosis (L97.525) Active confirmed Problem Ulcer of big toe (disorder) (141760045) Chronic ulcer of great toe of left foot with fat layer exposed (L97.522) Active confirmed Problem Hyperhidrosis (787439792) Hyperhidrosis (R61) Active confirmed Problem Type II diabetes mellitus without complication (136990762) Diabetes (E11.9) Active confirmed Problem Diabetes mellitus (34074506) Diabetes mellitus (E11.9) Active confirmed Problem 207274541 Body mass index [BMI] 38.0-38.9, adult (Z68.38) Active confirmed Problem Polyneuropathy due to type 2 diabetes mellitus (572983061) Controlled type 2 diabetes mellitus with diabetic polyneuropathy, unspecified whether alf insulin use (E11.42) Active confirmed Problem Chronic ulcer of right foot (disorder) (36788522045166141) Chronic ulcer of right foot with fat layer exposed (L97.512) Active confirmed Problem Degeneration of lumbosacral intervertebral disc (00491851) Degenerative disc disease at L5-S1 level (M51.37) Active confirmed Vital Signs Heart Rate 88 /min 07/04/2024 Temperature 97.0 degrees Fahrenheit 07/04/2024 Respiratory Rate 16 /min 04/04/2024 Blood pressure diastolic 84 mm Hg 02/22/2025 Oximetry 98 % 07/04/2024 Height 75 in 02/22/2025 Blood pressure systolic 128 mm Hg 02/22/2025 Weight 276.6 lbs 02/22/2025 BMI 34.57 kg/m2 02/22/2025 Encounters Encounter Location Date Provider Diagnosis [facility] (PODIATRY) [address] [place] [address] [place] [address] 03/28/2024 Harriett Gooden Other fracture of upper and lower end of left fibula, subsequent encounter for closed fracture with routine healing S82.832D and Chronic ulcer of right foot with fat layer exposed L97.512 [facility] [address] [place] [address] 03/15/2024 Clarisa Vallejo [facility] ([facility]) [address] [facility] [facility] [place] [address] 04/04/2024 Clarisa Vallejo Other fracture of left lower leg, initial encounter for closed fracture S82.892A and Charcot's joint, left ankle and foot M14.672 [facility] ([facility]) [address] [place] [address] [place] [address] 04/11/2024 Clarisa Vallejo Left fibular fracture S82.402A and Charcot's joint, left ankle and foot M14.672 [facility] ([facility]) [address] [place] [address] [place] [address] 03/30/2024 Harriett Giacomo Left fibular fracture S82.402A [facility] ([facility]) [address] [place] [address] [place] [address] 04/20/2024 Harriett Giacomo Left ankle pain M25.572 ; Charcot's joint, left ankle and foot M14.672 and Left fibular fracture S82.402A [facility] ([facility]) [address] [place] [address] [place] [address] 05/02/2024 Peter Antonyander Charcot's joint, left ankle and foot M14.672 ; Ankle fracture, left S82.892A and Left ankle pain M25.572 [facility] ([facility]) [address] [place] [address] [place] [address] 04/24/2024 Harriett Giacomo Charcot's joint, left ankle and foot M14.672 and Pain in right ankle and joints of right foot M25.571 [facility] ([facility]) [address] [place] [address] [place] [address] 05/30/2024 Peter Yoni Charcot's joint, left ankle and foot M14.672 and Left fibular fracture S82.402A [facility] ([facility]) [address] [place] [address] [place] [address] 05/23/2024 Peter Antonyander Charcot's joint, left ankle and foot M14.672 ; Ankle fracture, left S82.892A and Left ankle pain M25.572 [facility] ([facility]) [address] [place] [address] [place] [address] 06/13/2024 Clarisa Vallejo Left fibular fracture S82.402A ; Charcot's joint, left ankle and foot M14.672 and Left ankle pain M25.572 [facility] ([facility]) [address] [place] [address] [place] [address] 07/04/2024 Clarisa Vallejo Charcot's joint, left ankle and foot M14.672 ; Left fibular fracture S82.402A and Left ankle pain M25.572 [facility] [address] [place] [address] 07/06/2024 Kareem Andrea HTN (hypertension) I10 ; Lumbar radiculopathy M54.16 ; Diabetes E11.9 ; GERD (gastroesophageal reflux disease) K21.9 ; Depression F32.9 and Impingement of shoulder M25.[address] [address] 10/16/2024 Kareem Hoy Cellulitis L03.90 and Hypertension I10 [address] [address] 12/13/2024 Kareem Hoy Acute otitis media, left H66.92 ; Otalgia of left ear H92.02 and Otitis externa of left ear H60.[address] [address] 02/22/2025 Kareem Hoy Lumbar radiculopathy M54.16 ; Decreased testosterone level E29.1 ; Insomnia G47.00 ; Type 2 diabetes mellitus with foot ulcer E11.621 ; Hypertension I10 and Ankle pain M25.579 [facility] (POD[facility]ATRY) [address] [place] [address] [place] [address] 03/20/2024 Harriett Gooden [address] [address] 04/04/2024 Kareem Mendez [address] [address] 06/22/2024 Kareem Mendez [address] [address] 07/07/2024 Kareem Mendez [facility] [address] [place] [address] 08/03/2024 Kareem Mendez Chronic pain G89.29 ; Migraine G43.909 ; HTN (hypertension) I10 ; Diabetes E11.9 and Screening for prostate cancer Z12.5 [facility] [address] [facility] [place] [address] 08/05/2024 K[facility] [address] [facility] [place] [address] 09/20/2024 [facility] [address] [facility] [place] [address] 09/20/2024 K[facility] [address] [facility] [place] [address] 09/24/2024 Kare[facility] [address] [facility] [place] [address] 09/25/2024 Kareme lamont [facility] [address] [facility] [place] [address] 09/29/2024 Kareem Mendez [facility] [address] [facility] [place] [address] 10/02/2024 K[facility] [address] [facility] [place] [address] 10/05/2024 [facility] [address] [facility] [place] [address] 10/17/2024 Kareem Mendez [facility] [address] [facility] [place] [address] 10/20/2024 Kareem Barillaslamont [facility] [address] [facility] [place] [address] 10/31/2024 Kareem Mendez Assessments Encounter Date Diagnosis (ICD Code) Assessment Notes Treatment Notes Treatment Clinical Notes Section Notes 03/28/2024 Other fracture of upper and lower end of left fibula, subsequent encounter for closed fracture with routine healing (ICD-10 - S82.832D) The patient is a 53-year-old gentleman who is 2 weeks status post ORIF of an unstable fibular fracture, DOS: 03/15/2024. He is progressing as expected. No evidence of infection or DVT on examination. After verbal consent, the patient was placed into a well-padded total contact cast with the ankle in neutral position according to heat treating operator instructions (TCC EZ). He is to remain nonweightbearing. Elevation and ice behind the knee encouraged. Ulcer on the right hallux is improving. Follow-up next week for cast change and possible removal of madison/sutures, then in [address] Vallejo. I would like simulated weightbearing ankle x-rays at follow-up. 03/28/2024 Chronic ulcer of right foot with fat layer exposed (ICD-10 - L97.512) 04/04/2024 Charcot's joint, left ankle and foot (ICD-10 - M14.672) 04/04/2024 Other fracture of left lower leg, initial encounter for closed fracture (ICD-10 - S82.892A) Patient is 20 days status post ORIF of distal fibula, closed management of posterior malleolus fracture and syndesmotic stabilization. Roughly half of his madison were removed today. Then after verbal consent he was placed into a well-padded total contact cast given his neuropathy this should be treated as if a Charcot event. I recommended he wean down and off of pain medicine. He requests a refill which was provided and he was told that this would be his last prescription for [place]. He should remain nonambulatory but may place his foot down for balance only when necessary. He will follow-up in a week for cast change and will follow-up in 2 weeks with repeat x-rays and follow-up with me 04/11/2024 Charcot's joint, left ankle and foot (ICD-10 - M14.672) 04/11/2024 Left fibular fracture (ICD-10 - S82.402A) Patient is roughly 4 weeks status post ORIF of his fibula with syndesmotic fixation. He is neuropathic and thus treated as an acute Charcot. He is doing well and his skin has healed and all madison were discontinued. He was placed into a well-padded total contact cast with the foot and ankle in a neutral position. He may begin weightbearing as tolerated in the total contact cast and follow-up in a week with weightbearing ankle x-rays If x-rays and clinically his ankle remained stable may consider transitioning to a cam boot at follow-up 03/30/2024 Left fibular fracture (ICD-10 - S82.402A) 04/20/2024 Charcot's joint, left ankle and foot (ICD-10 - M14.672) Patient is roughly 5 weeks status post ORIF of his fibula with syndesmotic fixation, DOS: 03/15/24. He is neuropathic and thus treated as an acute Charcot. He is doing well. No evidence of infection or DVT on examination. X-rays were reviewed and are stable. He was transition to a cam boot. He must wear the boot for all ambulatory activity. He may remove the boot several times per day for active ankle joint range of motion exercises. He may continue 50% weightbearing for transfers and balance. RICE therapy and dbsp-icg-bqdyrjh analgesia as needed. Follow-up in 2 to [address] Vallejo, sooner if any issues arise. I would like weightbearing ankle x-rays at follow-up. 04/20/2024 Left ankle pain (ICD-10 - M25.572) 05/02/2024 Ankle fracture, left (ICD-10 - S82.892A) 04/24/2024 Charcot's joint, left ankle and foot (ICD-10 - M14.672) 04/24/2024 Pain in right ankle and joints of right foot (ICD-10 - M25.571) 05/30/2024 Charcot's joint, left ankle and foot (ICD-10 - M14.672) .Patient seen and evaluated. Patient education provided patient removed his cast and transition himself to cam boot. His pain and swelling are controlled and there is no evidence of infection or DVT today. He may continue weightbearing as tolerated in cam boot for the next 2 to 3 weeks at which time I would like him to follow-up for weightbearing ankle x-rays 05/30/2024 Left fibular fracture (ICD-10 - S82.402A) 05/23/2024 Charcot's joint, left ankle and foot (ICD-10 - M14.672) Patient is status post ORIF of fibular fracture with syndesmotic fixation for acute ankle fracture secondary to Charcot. He is placed into a cam boot at last visit however began having pain over his medial ankle. I recommended total contact cast which she was placed in to today and was allowed to dry in a neutral position. He may partial weight-bear around the house but otherwise should rest and keep as much weight off his foot as possible. He will follow-up in a week for a potential cast change. 05/02/2024 Charcot's joint, left ankle and foot (ICD-10 - M14.672) Patient is doing really well after ORIF of fibular malleolus fracture and syndesmotic fixation. He may weight-bear as tolerated in the cam boot. Continue rest, elevation. He will follow-up in 3 to 4 weeks with weightbearing ankle x-rays 05/23/2024 Ankle fracture, left (ICD-10 - S82.892A) 06/13/2024 Charcot's joint, left ankle and foot (ICD-10 - M14.672) 06/13/2024 Left fibular fracture (ICD-10 - S82.402A) Patient is nearly 3 months status post ORIF of the fibula for acute Charcot fracture of the ankle. He is doing well and has been walking in the cam boot without issue. He may transition normal shoes. I still would like for him to take it easy and only perform activity that is absolutely necessary. I would like to see him in 2 to 3 weeks to ensure this increase in activity does not cause a problem therefore I would like weightbearing ankle x-rays at follow-up 07/04/2024 Charcot's joint, left ankle and foot (ICD-10 - M14.672) Since last appointment patient has transition out of the cam boot and back into normal shoes. He is in flip-flops today and relates to improvement in pain and function since transitioning out of the cam boot. I strongly recommended diabetic shoes given his high risk of ulceration and other complications associated with diabetes. Given his high risk I do recommend close follow-up in the next 6 weeks with weightbearing ankle x-rays 07/04/2024 Left fibular fracture (ICD-10 - S82.402A) 07/06/2024 HTN (hypertension) (ICD-10 - I10) good here 07/06/2024 Lumbar radiculopathy (ICD-10 - M54.16) 10/16/2024 Hypertension (ICD-10 - I10) 10/16/2024 Cellulitis (ICD-10 - L03.90) 12/13/2024 Acute otitis media, left (ICD-10 - H66.92) 02/22/2025 Lumbar radiculopathy (ICD-10 - M54.16) 02/22/2025 Decreased testosterone level (ICD-10 - E29.1) 08/03/2024 Migraine (ICD-10 - G43.909) 08/03/2024 Chronic pain (ICD-10 - G89.29) 12/13/2024 Otalgia of left ear (ICD-10 - H92.02) 08/03/2024 HTN (hypertension) (ICD-10 - I10) 02/22/2025 Insomnia (ICD-10 - G47.00) 07/06/2024 Diabetes (ICD-10 - E11.9) not checking it often - says is normla 07/04/2024 Left ankle pain (ICD-10 - M25.572) 06/13/2024 Left ankle pain (ICD-10 - M25.572) 05/02/2024 Left ankle pain (ICD-10 - M25.572) 05/23/2024 Left ankle pain (ICD-10 - M25.572) 04/20/2024 Left fibular fracture (ICD-10 - S82.402A) 07/06/2024 GERD (gastroesophageal reflux disease) (ICD-10 - K21.9) 02/22/2025 Type 2 diabetes mellitus with foot ulcer (ICD-10 - E11.621) 12/13/2024 Otitis externa of left ear (ICD-10 - H60.92) 08/03/2024 Diabetes (ICD-10 - E11.9) 02/22/2025 Hypertension (ICD-10 - I10) 07/06/2024 Depression (ICD-10 - F32.9) needs meds adjusted 07/06/2024 Impingement of shoulder (ICD-10 - M25.819) 08/03/2024 Screening for prostate cancer (ICD-10 - Z12.5) 02/22/2025 Ankle pain (ICD-10 - M25.579) 12/13/2024 Other You have been prescribed antibiotics for otitis media. Antibiotics may bother your stomach, so try taking them with a light meal (unless instructed otherwise by your pharmacist). It is important to take them until they are finished. You can use gdqv-bpv-bubdgwt acetaminophen or ibuprofen if needed for pain. You have been prescribed antibiotics. You should be extra vigilant about hand washing or using hand technical operator gel. You should follow up with your Primary Care Physician or return to clinic if not improving in the next 3-5 days. Plan Of Treatment Pending Test Test Name Order Date CMP (COMPLETE METABOLIC PANEL) 3 CMP (COMPLETE METABOLIC PANEL) 4 CMP (COMPLETE METABOLIC PANEL) HEMOGLOBIN A1C (GLYCO) 07/06/2024 HEMOGLOBIN A1C (GLYCO) 10/29/2023 HEMOGLOBIN A1C (GLYCO) 06/02/2023 LIPID PANEL (CHOL/TRIG/HDL/LDL) 06/02/20 CBC WITH DIFF 06/02/2023 CBC WITH DIFF 10/29/2023 CBC WITH DIFF 07/06/2024 PSA, PROSTATE-SPECIFIC ANTIGEN 3 XR Ankle LT (3 views) * (164) 04/04/2024 XR Ankle LT (3 views) * (164) 04/20/2024 XR Ankle LT (3 views) * (164) 05/02/2024 XR Ankle LT (3 views) * (164) 05/23/2024 XR Ankle LT (3 views) * (164) 06/13/2024 XR Ankle LT (3 views) * (164) 07/04/2024 RHEUMATOID PANEL 07/06/2024 Sleep study - Diagnostic Polysonogram COMPREHENSIVE METABOLIC PROFILE WITH GFR 08/03/2024 OCCULT BLOOD, FECAL, IMMUNOASSAY 024 CBC W/AUTO DIFF 08/03/2024 STOOL OCCULT BLOOD 06/02/2023 AMMONIA 10/29/2023 BNP 10/29/2023 PROF CHEM 8 (BAS METB) 03/06/2025 TESTOSTERONE, TOTAL 12/06/2023 TESTOSTERONE, TOTAL 07/06/2024 US ABD 10/13/2023 XR ANKLE RT MIN 3 VIEWS 08/11/2023 XR FOOT RT MIN 3 VIEWS 10/29/2023 XR FOOT RT MIN 3 VIEWS 08/11/2023 THYROID PANEL (T4/TSH/FREE T3) THYROID PANEL (T4/TSH/FREE T3) 4 THYROID PANEL (T4/TSH/FREE T3) 4 CBC no Diff (Hemogram) 03/06/2025 PSA, SCREENING 08/03/2024 Lipid Panel 08/03/2024 Insurance Providers Payer Name Payer Address Payer Phone Subscriber Number Group Number Insured Name Patient Relationship to Insured Coverage Start Date Coverage End Date [employer] [place] [address] [address] [place] [address] [id number] Matty Garces Self - patient is the insured 3 Medications Administered Medication Instructions Date of Administration Dosage Notes Ceftriaxone 1 gram 08/25/2023 1 g 1 gm Ceftriaxone 1 gram 12/20/2023 1 g Kenalog-40 09/09/2023 120 mg 120 Kenalog-40 10/06/2023 120 mg 120 Kenalog-40 12/20/2023 120 mg Ketorolac Tromethamine 07/23/2023 60 mg Ketorolac Tromethamine 08/11/2023 60 mg 60 Ketorolac Tromethamine 08/25/2023 60 mg 60 Ketorolac Tromethamine 09/09/2023 60 mg 60 Ketorolac Tromethamine 11/29/2023 60 mg Ketorolac Tromethamine 12/20/2023 60 mg Orphenadrine Citrate 07/23/2023 60 mg Orphenadrine Citrate 08/11/2023 60 mg 60 Orphenadrine Citrate 08/25/2023 60 mg 60 Orphenadrine Citrate 11/29/2023 60 mg Medical (General) History Medical History History ICD Code HTN DECREASED TESTOSTERONE LEVEL LUMBAR RADICULOPATHY HYPERSOMNIA SYSTOLIC MURMUR HYPERHIDROSIS DEGENERATIVE DISC DISEASE LUMBAR SPONDYLOSIS DIABETES CERVICALDISC DISEASE CARPAL TUNNEL LATERAL EPICONDYLITIS CHRONIC PAIN GERD INSOMNIA IMPOTENCE ANXIETY PATEL Surgical History Surgery Date(Month/Year) VASECTOMY UVULOPLASTY TONSILLECTOMY RIGHT SHOULDER CERVICAL DECOMPRESSION REVISED C6-C7 OSTEOTOMY HEAD OF FIRST PHALANX ORIF left ankle Lateral Mall eolus Fx, Closed Reduction Post Malleolus Fx 03/15/24 Hospitalization History Reason Date(Month/Year) cervical 2018 cervical surgery 2019 see above
--- OUTSIDE RECORDS SUMMARY | 2025-03-06 07:05 | XMS_ITS | Patient Health Record ---
Author Organization [facility] es Address [address] [place] [address] Care Team Providers Care Graphic Engineer Name Role Phone Fela Álvarez Primary Care Provider Stephie Calzada Unavailable Reason For Referral No Information Encounters Encounter Location Date Provider Diagnosis [address] [address] 01/16/2025 Stephie Messina Cracked tooth K03.81 ; Dental caries on pit and fissure surface penetrating into dentin K02.52 ; Necrosis of pulp K04.1 ; Encounter for dental examination and cleaning with abnormal findings Z01.21 ; Other dental procedure status Z98.818 and Partial loss of teeth, unspecified cause, class I K08.401 [facility] [address] [place] [address] 02/15/2025 Stephie Messina Assessments Encounter Date Diagnosis (ICD Code) Assessment [...] Coverage Start Date Coverage End Date [employer] [place] [employer] [address] [place] [address] [phone] [id number] MATTY WADE Self - patient is the insured 3 [employer] [address] [place] [address] [phone] [id number] MATTY WADE Self - patient is the insured 3 [employer] [address] [address] [place] [address] [id number] MATTY WADE Self - patient is the insured 5
--- OUTSIDE RECORDS SUMMARY | 2025-03-06 07:05 | XMS_ITS | Clinical Summary ---
Author Organization [facility] Address [address] [place] [address] Care Team Providers Care School Adjustment Counselor Name Role Phone Caden Mendez MD Primary Care Provider [phone] Allergies No known active allergies Medications traMADOL [...] Protein, Total 7.5 6.0 - 8.4 g/dL [facility] Albumin 4.8 3.5 - 5.0 g/dL [facility] Calcium 9.6 8.5 - 10.5 mg/dL [facility] Bilirubin, Total 0.3 0.0 - 1.5 mg/dL [facility] Alkaline Phosphatase 70 40 - 150 U/L [facility] AST 20 7 - 40 U/L [facility] Glucose 54(L) 65 - 100 mg/dL [facility] BUN 25 10 - 25 mg/dL [facility] Creatinine 1.00 0.70 - 1.40 mg/dL [facility] Sodium 143 135 - 146 mmol/L [facility] Potassium 3.5 3.5 - 5.0 mmol/L [facility] Chloride 104 98 - 110 mmol/L [facility] CO2 28 23 - 32 mmol/L [facility] Anion Gap 11 0 - 15 mmol/L [facility] ALT 30 5 - 50 U/L [facility] eGFR- >60 [facility] eGFR-All Other Races >60 . [facility] Comment: eGFR (Estimated GFR) Units of [...] EDT Joan Smith MD LABORATORY Final Result [facility] [address] [place] [address] from Last 3 Months or Most Recently Relevant to Health Maintenance Insurance [employer] [place] Care Teams School Adjustment Counselor Relationship Specialty Start Date End Date Caden Mendez MD PCP - General Family Medicine 03/08/12
--- OUTSIDE RECORDS SUMMARY | 2025-03-06 07:05 | XMS_ITS | Encounter Summary ---
Author Organization [facility] Address [address] [place] [address] Care Team Providers Care Financial Intern Name Role Phone Caden Mendez MD Primary Care Provider [phone] Encounter Details Date Type Department Care Team (Late Contact Info) Description 03/11/2023 External Result Encounter [facility] External Department Unsolicited Christiano Geiger MD [address] [place] [phone] Social History Tobacco Use Types Packs/Day [...] Office Visit [facility] [address] [facility] [address] [address] [place] [phone] Christiano Geiger MD [address], [place] [address] documented as of this encounter [...] Crow Contreras M.D.03/11/2023 3:48 PM Dictation Location: [facility]--03 Transcribed By: PWS 03/11/23 1548 Dictated By: Crow Contreras DO 03/11/23 1544 Signed By: <Electronically signed by Crow Contreras DO in OV> 03/11/23 1548 Narrative 03/12/2023 8:34 AM EDT [facility] [place] [id number] XRay Report Signed Patient: Alden Garces MR#: [id number] 97 : 1970 Acct:[id number] Age/Sex: 52 / M ADM Date: 03/11/23 Loc: ICXD Room: Type: [facility] Attending Dr: Christiano Geiger MD Copies to: [...] 5V* Procedure Note Radiology, Radiologist, - 03/12/2023 [facility] [address] [address] XRay Report Signed Patient: Alden Garces TMR#: [id number] 97 : 1970Acct:[id number] Age/Sex: 52 / MADM Date: 03/11/23 Loc: ICXD Room:Type: [facility] Attending Dr: Christiano Geiger MD Copies to: [...] Crow Contreras M.D.03/11/2023 3:48 PM Dictation Location: [place] [address] Transcribed By: [facility] 03/11/23 1548 Dictated By: Crow Contreras DO 03/11/23 1544 Signed By: <Electronically signed by Crow Contreras DO in OV> 03/11/23 1548 us Christiano Geiger MD IMG XR PROCEDURES Final Resul t documented in this encounter Visit Diagnoses Not on filedocumented in this encounter Care Teams Financial Intern Relationship Specialty Start Date End Date Caden Mendez MD PCP - General Family Medicine 01/10/24 documented as of this encounter
--- OUTSIDE RECORDS SUMMARY | 2025-03-06 07:05 | XMS_ITS | Encounter Summary ---
Author Organization [facility] Address [address] [place] [address] Care Team Providers Care Hearse Driver Name Role Phone Caden Mendez MD Primary Care Provider [phone] Encounter Details Date Type Department Care Team ([facility] Contact Info) Description 03/24/2023 Abstract [facility] [address] [place] [phone] Christiano Geiger MD [address] [place] [phone] Social History Tobacco Use Types Packs/Day Years [...] Upcoming Encounters Date Type Department Care Team ([facility] Contact Info) Description 04/04/2025 11:20 AM EDT Office Visit [facility] [address] [facility] [address] [place] [phone] Christiano Geiger MD [address] [place] [address] [phone] documented as of this encounter Visit Diagnoses Not on filedocumented in this encounter Care Teams Hearse Driver Relationship Specialty Start Date End Date Caden Mendez MD PCP - General Family Medicine 01/10/24 documented as of this encounter
--- OUTSIDE RECORDS SUMMARY | 2025-03-06 07:05 | XMS_ITS | Encounter Summary ---
Author Organization [facility] Address [address] [place] [address] [place] [address] Care Team Providers Care Operating Systems Specialist Name Role Phone Caden Mendez MD Primary Care Provider [phone] Encounter Details Date Type Department Care Team ([facility] Contact Info) Description 07/17/2023 Abstract [facility] [address] [place] [phone] Christiano Geiger MD [address] [facility] [address] [place] [phone] Social History Tobacco Use Types Packs/Day Years [...] NEUR [address] [place] [address] [place] [phone] Christiano Geiger MD [address] [place] [address] [phone] documented as of this encounter Visit Diagnoses Not on filedocumented in this encounter Care Teams Operating Systems Specialist Relationship Specialty Start Date End Date Caden Mendez MD PCP - General Family Medicine 01/10/24 documented as of this encounter
--- OUTSIDE RECORDS SUMMARY | 2025-03-06 07:05 | XMS_ITS | Clinical Summary ---
Author Organization [facility] Address [address] [place] [address] Care Team Providers Care Accountant Budget Name Role Phone Caden Mendez MD Primary Care Provider [phone] Allergies Active Allergy Reactions Criticality Noted Date [...] morning and 1 mg before bedtime. 01/23/20 23 Active Meclizine HCl 25 MG chewable tablet [...] at the same time Active HYDROcodone-aceta minophen ([place]) 5-325 MG tablet 03/20/20 24 Active cholecalciferol [...] NEUR [address] [place] [address] [place] [phone] Christiano Geiger MD Primary narcolepsy with cataplexy (HCC) (Primary Dx); Excessive daytime sleepiness; Obstructive sleep apnea 01/03/2025 Bamboo flowsheet [facility] [address] [place] [phone] Christiano Geiger MD 01/03/2025 Travel 12/11/2024 4:10 PM EDT Telemedicine [facility] [address] [place] [address] [place] [phone] Christiano Geiger MD Cubital tunnel syndrome on [...] [facility] [address] [facility] [address] [place] [address] Christiano Geiger MD [address] [facility] [address] [place] [phone] Health Maintenance Due Date Last Done Comments CT Colonography 1970 Colonoscopy 1970 Colorectal Cancer Screening 1970 FIT-DNA 1970 FIT 1970 FOBT 1970 Sigmoidoscopy 1970 Influenza Vaccine Completed 07/07/2024, , 07/15/2022, Additional history exists Insurance [employer] [place] Care Teams Accountant Budget Relationship Specialty Start Date End Date Caden Mendez MD PCP - General Family Medicine 01/10/24
--- OUTSIDE RECORDS SUMMARY | 2025-03-06 07:09 | XMS_ITS | CCD ---
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 Name Role Phone UNKNOWN, PROVIDER Admitting Unavailable UNKNOWN, PROVIDER Attending Unavailable VENUS JAEGER Referring Unavailable VENUS JAEGER Primary Care Unavailable [place] Procedure Practitioner Unavailab le UNKNOWN, PROVIDER Surgeon Unavailable [place] Procedure Practitioner Unavailab le SANDRA BILL Surgeon Unavailable UNKNOWN, PROVIDER Admitting Unavailable UNKNOWN, PROVIDER Attending Unavailable VENUS JAEGER Referring Unavailable VENUS JAEGER Primary Care Unavailable [place] Procedure Practitioner Unavailab le UNKNOWN, PROVIDER Surgeon Unavailable Venus Jaeger Primary Care Physician [phone] DONOVAN Admitting Unavailable HOY [...] Woo Attending Unavailable CHINO Vallejo Attending Provider Venus Jaeger MD Primary Care Provider [phone] Yoni MAGANA, Trey Smith Attending Provider Trey [...] (1 source) Aspartame Drug Allergy 08-17-20 [facility] Rep[facility] (1 source) avoid; Translations: [Unknown] Propensity to adverse reactions (disorder) 08-17-20 18 [facility] (1 source) vitamin B12; Translations: [cyanocobalamin] Drug Allergy Unknown (qualifier value) [facility] (1 source) Acetaminophen / HYDROcodone Drug Allergy [facility] Repository (1 source) Corticosteroids Drug allergy (disorder) [facility] (1 source) fentaNYL Drug Allergy [facility] (1 source) Misc-Food; Translations: [Misc-Food] Food allergy (disorder) [facility] Repository (13 sources) fentaNYL Drug Allergy 07-08-20 Unknown [facility] (13 sources) HYDROcodone Drug Allergy 07-08-20 Unknown [facility] Healthcare (13 sources) Morphine And Codeine Drug Allergy 07-08-20 Unknown [facility] Healthcare (13 sources) Other Propensity to adverse reactions 07-08-20 [facility] Healthcare (1 source) Corticosteroids Drug allergy (disorder) 05-14-20 [facility] Repository Medications Current Medications Medication Drug Class(es) Dates Sig (Normalized) Sig (Original) acetaminophen 325 mg / HYDROcodone bitartrate 5 mg oral tablet (13 sources) Opioid Agonist Start: 03-20-2024 HYDROcodone-acet aminophen (Porter) 5-325 MG tablet 03/20/2024 Active amantadine hydrochloride [...] Ordered Start: 05-14-2018 [facility] Carvedilol 12.5 mg Tablet Active [...] Start: 05-14-2018 take 2 tablets by mo [facility] at bedtime Clonazepam 0.5 mg [...] Take with food. . 02/22/2023 Active sennosides, group home 8.6 mg oral tablet (13 sources) Start: [...] by mouth at bedtime. 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; Translations: [[facility] 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 ASPIRIN] Onset: 3 Episodic Other aftercare (1 source) Other technician terminal and repeater (current) drug therapy; Translations: [OTH [facility] CURRENT [...] Anion gap [Moles/Vol] 8 mmol/L Normal 7-20 [facility] Comment on above: Performed By: #### L [id number] #### [facility] ([facility]) [address] [place] [address] Calcium [Mass/Vol] 9.7 mg/dL Normal 8.6-10.3 [facility] Comment on above: Performed By: #### L [id number] #### [facility] ([facility]) [address] [place] [address] Chloride [Moles/Vol] 97 mmol/L Low 98-107 [facility] Comment on above: Performed By: #### L [id number] #### [facility] ([facility]) [address] [place] [address] CO2 [Moles/Vol] 35 mmol/L High 21-[address] [facility] Comment on above: Performed By: #### L [id number] #### [facility] ([facility]) [address] [place] [address] Creatinine [Mass/Vol] 1.02 mg/dL Normal 0.70-1.30 [facility] Comment on above: Performed By: #### L [id number] #### [facility] ([facility]) [address] [place] [address] GLOMERULAR FILTRATION RATE ML/MIN/1.73 SQ M.PREDICTED 86.8 mL/min/1.73m*2 Normal >60.0 [facility] Comment on above: Result Comment: [facility]???s estimated glomerular filtration rate (eGFR) will [...] individuals. Performed By: #### L [id number] #### [facility] ([facility]) [address] [place] [address] Glucose [Mass/Vol] 80 mg/dL Normal 70-100 [facility] Comment on above: Performed By: #### L [id number] #### [facility] ([facility]) [address] [place] [address] Potassium [Moles/Vol] 4.2 mmol/L Normal 3.5-5.1 [facility] Comment on above: Performed By: #### L [id number] #### [facility] ([facility]) [address] [place] [address] Sodium [Moles/Vol] 136 mmol/L Normal 136-145 [facility] Comment on above: Performed By: #### L [id number] #### [facility] ([facility]) [address] [place] [address] Urea nitrogen [Mass/Vol] 8 mg/dL Normal 7-25 [facility] Comment on above: Performed By: #### L [id number] #### [facility] ([facility]) [address] [place] [address] UREA NITROGEN/CREATININE (MASS RATIO) IN SER/PLAS 7.8 Normal [facility] Comment on above: Performed By: #### L [id number] #### [facility] ([facility]) [address] [place] [address] CBC WITH AUTO DIFFERENTIALon 10-11-2024 Basophils (Bld) [#/Vol] 0.06 10*3/uL Normal 0.00-0.20 [facility] Comment on above: Performed By: #### L [id number] ####[facility] ([facility])[address] [place] [address] Basophils/100 WBC (Bld) 0.9 % Normal 0.0-1.0 [facility] Comment on above: Performed By: #### L [id number] ####[facility] ([facility])[address] [place] [address] Eosinophils (Bld) [#/Vol] 0.21 10*3/uL Normal 0.00-0.50 [facility] Comment on above: Performed By: #### L [id number] ####[facility] ([facility])[address] [place] [address] Eosinophils/100 WBC (Bld) 3.0 % Normal 0.0-6.0 [facility] Comment on above: Performed By: #### L [id number] ####[facility] [place] [address] Erythrocyte distribution width (RBC) [Ratio] 16.7 % High 11.5-15.0 [facility] Comment on above: Performed By: #### L [id number] ####[facility] ([facility])[address] [place] [address] ERYTHROCYTE MEAN CORPUSCULAR HEMOGLOBIN CONCENTRATION (G/DL) BY AUTOMATED 29.9 g/dL Low 32.0-35.0 [facility] Comment on above: Performed By: #### L [id number] ####[facility] [place] [address] Hematocrit (Bld) [Volume fraction] 44.5 % Normal 39.0-55.0 [facility] Comment on above: Performed By: #### L [id number] ####[facility] ([facility])[address] [place] [address] Hemoglobin (Bld) [Mass/Vol] 13.3 g/dL Normal 13.0-17.0 [facility] Comment on above: Performed By: #### L [id number] ####[facility] ([facility])[address] [place] [address] Immature granulocytes (Bld) [#/Vol] 0.11 10*3/uL Normal 0.00-0.20 [facility] Comment on above: Performed By: #### L [id number] ####[facility] ([facility])[address] [place] [address] Immature granulocytes/100 WBC (Bld) 1.6 % High 0.0-1.0 [facility] Comment on above: Performed By: #### L [id number] ####[facility] ([facility])[address] [place] [address] Lymphocytes (Bld) [#/Vol] 0.91 10*3/uL Low 1.20-4.00 [facility] Comment on above: Performed By: #### L [id number] ####[facility] ([facility])[address] [place] [address] Lymphocytes/100 WBC (Bld) 12.9 % Low 20.0-45.0 [facility] Comment on above: Performed By: #### L [id number] ####[facility] ([facility])[address] [place] [address] MCH (RBC) [Entitic mass] 26.9 pg Low 27.0-33.0 [facility] Comment on above: Performed By: #### L [id number] ####[facility] [place] [address] MCV (RBC) [Entitic vol] 89.9 fL Normal 82.0-98.0 [facility] Comment on above: Performed By: #### L [id number] ####[facility] ([facility])[address] [place] [address] Monocytes (Bld) [#/Vol] 0.65 10*3/uL Normal 0.10-1.00 [facility] Comment on above: Performed By: #### L [id number] ####[facility] ([facility])[address] [place] [address] Monocytes/100 WBC (Bld) 9.2 % Normal 5.0-12.0 [facility] Comment on above: Performed By: #### L [id number] ####[facility] ([facility])[address] [place] [address] Neutrophils (Bld) [#/Vol] 5.11 10*3/uL Normal 1.60-7.60 [facility] Comment on above: Performed By: #### L [id number] ####[facility] ([facility])[address] [place] [address] Neutrophils/100 WBC (Bld) 72.4 % High 40.0-72.0 [facility] Comment on above: Performed By: #### L [id number] ####[facility] ([facility])[address] [place] [address] NRBC (PER 100 WBCS) BY AUTOMATED COUNT 0.0 % Normal 0 [facility] Comment on above: Performed By: #### L [id number] ####[facility] ([facility])[address] [place] [address] PLATELETS (10*3/UL) IN BLOOD AUTOMATED COUNT 218 10*3/uL Normal 150-400 [facility] Comment on above: Performed By: #### L [id number] ####[facility] ([facility])[address] [place] [address] RBC (Bld) [#/Vol] 4.95 10*6/uL Normal 4.20-5.70 [facility] Comment on above: Performed By: #### L [id number] ####[facility] ([facility])[address] [place] [address] WBC (Bld) [#/Vol] 7.05 10*3/uL Normal 4.00-10.60 [facility] Comment on above: Performed By: #### L [id number] ####[facility] ([facility])[address] [place] [address] BASIC METABOLIC PANELon 09-14 Anion gap [Moles/Vol] 9 mmol/L Normal 7-20 [facility] Comment on above: Performed By: #### L [id number] #### [facility] ([facility]) [address] [place] [address] Calcium [Mass/Vol] 9.5 mg/dL Normal 8.6-10.3 [facility] Comment on above: Performed By: #### L [id number] #### [facility] ([facility]) [address] [place] [address] Chloride [Moles/Vol] 96 mmol/L Low 98-107 [facility] Comment on above: Performed By: #### L [id number] #### [facility] ([facility]) [address] [place] [address] CO2 [Moles/Vol] 34 mmol/L High 21-[address] [facility] Comment on above: Performed By: #### L [id number] #### [facility] ([facility]) [address] [place] [address] Creatinine [Mass/Vol] 0.93 mg/dL Normal 0.70-1.30 [facility] Comment on above: Performed By: #### L [id number] #### [facility] ([facility]) [address] [place] [address] GLOMERULAR FILTRATION RATE ML/MIN/1.73 SQ M.PREDICTED 97.0 mL/min/1.73m*2 Normal >60.0 [facility] Comment on above: Result Comment: [facility]???s estimated glomerular filtration rate (eGFR) will [...] individuals. Performed By: #### L [id number] #### [facility] ([facility]) [address] [place] [address] Glucose [Mass/Vol] 85 mg/dL Normal 70-100 [facility] Comment on above: Performed By: #### L [id number] #### [facility] ([facility]) [address] [place] [address] Potassium [Moles/Vol] 4.0 mmol/L Normal 3.5-5.1 [facility] Comment on above: Performed By: #### L [id number] #### [facility] ([facility]) [address] [place] [address] Sodium [Moles/Vol] 135 mmol/L Low 136-145 [facility] Comment on above: Performed By: #### L [id number] #### [facility] ([facility]) [address] [place] [address] Urea nitrogen [Mass/Vol] 8 mg/dL Normal 7-25 [facility] Comment on above: Performed By: #### L [id number] #### [facility] ([facility]) [address] [place] [address] UREA NITROGEN/CREATININE (MASS RATIO) IN SER/PLAS 8.6 Normal [facility] Comment on above: Performed By: #### L [id number] #### [facility] ([facility]) [address] [place] [address] C-REACTIVE PROTEINon 025 C REACTIVE PROTEIN (MG/L) IN SER/PLAS 11.5 mg/L High <=5.0 [facility] Comment on above: Result Comment: Test ing performed using a new methodology, turbidimetry. Normal ranges have been updated. Old normal range was <8 mg/L. Performed By: #### L [id number] #### [facility] ([facility]) [address] [place] [address] CBC WITH AUTO DIFFERENTIALon 10-10-2024 Basophils (Bld) [#/Vol] 0.08 10*3/uL Normal 0.00-0.20 [facility] Comment on above: Performed By: #### L [id number] ####[facility] ([facility])[address] [place] [address] Basophils/100 WBC (Bld) 1.1 % High 0.0-1.0 [facility] Comment on above: Performed By: #### L [id number] ####[facility] ([facility])[address] [place] [address] Eosinophils (Bld) [#/Vol] 0.19 10*3/uL Normal 0.00-0.50 [facility] Comment on above: Performed By: #### L [id number] ####[facility] ([facility])[address] [facility] [place] [address] Eosinophils/100 WBC (Bld) 2.7 % Normal 0.0-6.0 [facility] Comment on above: Performed By: #### L [id number] ####[facility] ([facility])[address] [place] [address] Erythrocyte distribution width (RBC) [Ratio] 16.6 % High 11.5-15.0 [facility] Comment on above: Performed By: #### L [id number] ####[facility] [place] [address] ERYTHROCYTE MEAN CORPUSCULAR HEMOGLOBIN CONCENTRATION (G/DL) BY AUTOMATED 30.1 g/dL Low 32.0-35.0 [facility] Comment on above: Performed By: #### L [id number] ####[facility] ([facility])[address] [place] [address] Hematocrit (Bld) [Volume fraction] 44.5 % Normal 39.0-55.0 [facility] Comment on above: Performed By: #### L [id number] ####[facility] [place] [address] Hemoglobin (Bld) [Mass/Vol] 13.4 g/dL Normal 13.0-17.0 [facility] Comment on above: Performed By: #### L [id number] ####[facility] ([facility])[address] [place] [address] Immature granulocytes (Bld) [#/Vol] 0.10 10*3/uL Normal 0.00-0.20 [facility] Comment on above: Performed By: #### L [id number] ####[facility] ([facility])[address] [place] [address] Immature granulocytes/100 WBC (Bld) 1.4 % High 0.0-1.0 [facility] Comment on above: Performed By: #### L [id number] ####[facility] ([facility])[address] [place] [address] Lymphocytes (Bld) [#/Vol] 0.90 10*3/uL Low 1.20-4.00 [facility] Comment on above: Performed By: #### L [id number] ####[facility] ([facility])[address] [place] [address] Lymphocytes/100 WBC (Bld) 12.8 % Low 20.0-45.0 [facility] Comment on above: Performed By: #### L [id number] ####[facility] ([facility])[address] [place] [address] MCH (RBC) [Entitic mass] 26.9 pg Low 27.0-33.0 [facility] Comment on above: Performed By: #### L [id number] ####[facility] ([facility])[address] [place] [address] MCV (RBC) [Entitic vol] 89.4 fL Normal 82.0-98.0 [facility] Comment on above: Performed By: #### L [id number] ####[facility] ([facility])[address] [place] [address] Monocytes (Bld) [#/Vol] 0.60 10*3/uL Normal 0.10-1.00 [facility] Comment on above: Performed By: #### L [id number] ####[facility] ([facility])[address] [place] [address] Monocytes/100 WBC (Bld) 8.5 % Normal 5.0-12.0 [facility] Comment on above: Performed By: #### L [id number] ####[facility] ([facility])[address] [place] [address] Neutrophils (Bld) [#/Vol] 5.17 10*3/uL Normal 1.60-7.60 [facility] Comment on above: Performed By: #### L [id number] ####[facility] [place] [address] Neutrophils/100 WBC (Bld) 73.5 % High 40.0-72.0 [facility] Comment on above: Performed By: #### L [id number] ####[facility] [place] [address] NRBC (PER 100 WBCS) BY AUTOMATED COUNT 0.0 % Normal 0 [facility] Comment on above: Performed By: #### L [id number] ####[facility] ([facility])[address] [place] [address] PLATELETS (10*3/UL) IN BLOOD AUTOMATED COUNT 243 10*3/uL Normal 150-400 [facility] Comment on above: Performed By: #### L [id number] ####[facility] ([facility])[address] [place] [address] RBC (Bld) [#/Vol] 4.98 10*6/uL Normal 4.20-5.70 [facility] Comment on above: Performed By: #### L [id number] ####[facility] ([facility])[address] [place] [address] WBC (Bld) [#/Vol] 7.04 10*3/uL Normal 4.00-10.60 [facility] Comment on above: Performed By: #### L [id number] ####[facility] ([facility])[address] [place] [address] SEDIMENTATION RATEon 025 SEDIMENTATION RATE, ERYTHROCYTE 54 mm/hr High <20 [facility] Comment on above: Performed By: #### L [id number] #### [facility] ([facility]) [address] [place] [address] VANCOMYCIN, PEAKon 5 VANCOMYCIN (UG/ML) IN SER/PLAS - PEAK 23.0 ug/mL Normal 20.0-50.0 [facility] Comment on above: Performed By: #### L [id number] #### [facility] ([facility]) [address] [place] [address] VANCOMYCIN, TROUGHon 025 VANCOMYCIN (UG/ML) IN SER/PLAS - TROUGH 19.2 ug/mL Normal 5.0-20.0 [facility] Comment on above: Performed By: #### L [id number] #### [facility] ([facility]) [address] [place] [address] 36on 10-09-2024 36 Spoke with facility and patient was admitted back here at [place] yesterday. They will call back if they need any orders. Normal [facility] BASIC METABOLIC PANELon 01-2 Anion gap [Moles/Vol] 9 mmol/L Normal - [facility] Comment on above: Performed By: #### L [id number] ####[facility] ([facility])[address] [place] [address] Calcium [Mass/Vol] 9.4 mg/dL Normal 8.6-10.3 [facility] Comment on above: Performed By: #### L [id number] ####[facility] [place] [address] Chloride [Moles/Vol] 96 mmol/L Low 98-107 [facility] Comment on above: Performed By: #### L [id number] ####[facility] ([facility])[address] [place] [address] CO2 [Moles/Vol] 36 mmol/L High - [facility] Comment on above: Performed By: #### L [id number] ####[facility] ([facility])[address] [place] [address] Creatinine [Mass/Vol] 0.98 mg/dL Normal 0.70-1.30 [facility] Comment on above: Performed By: #### L [id number] ####[facility] [place] [address] GLOMERULAR FILTRATION RATE ML/MIN/1.73 SQ M.PREDICTED 91.1 mL/min/1.73m*2 Normal >60.0 [facility] Comment on above: Result Comment: [facility]???s estimated glomerular filtration rate (eGFR) will [...] of individuals. Performed By: #### L [id number] ####[facility] ([facility])[address] [place] [address] Glucose [Mass/Vol] 90 mg/dL Normal 70-100 [facility] Comment on above: Performed By: #### L [id number] ####[facility] [place] [address] Potassium [Moles/Vol] 4.0 mmol/L Normal 3.5-5.1 [facility] Comment on above: Performed By: #### L [id number] ####[facility] [place] [address] Sodium [Moles/Vol] 137 mmol/L Normal 136-145 [facility] Comment on above: Performed By: #### L [id number] ####[facility])[address] [place] [address] Urea nitrogen [Mass/Vol] 7 mg/dL Normal 7-25 [facility] Comment on above: Performed By: #### L [id number] ####[facility] ([facility])[address] [facility] [place] [address] UREA NITROGEN/CREATININE (MASS RATIO) IN SER/PLAS 7.1 Normal [facility] Comment on above: Performed By: #### L [id number] ####[facility] [place] [address] CBCon 10-09-2024 Erythrocyte distribution width (RBC) [Ratio] 16.2 % High 11.5-15.0 [facility] Comment on above: Performed By: #### L [id number] #### [facility] [address] [place] [address] ERYTHROCYTE MEAN CORPUSCULAR HEMOGLOBIN CONCENTRATION (G/DL) BY AUTOMATED 30.5 g/dL Low 32.0-35.0 [facility] Comment on above: Performed By: #### L [id number] #### [facility] [address] [place] [address] Hematocrit (Bld) [Volume fraction] 42.0 % Normal 39.0-55.0 [facility] Comment on above: Performed By: #### L [id number] #### [facility] ([facility]) [address] [place] [address] Hemoglobin (Bld) [Mass/Vol] 12.8 g/dL Low 13.0-17.0 [facility] Comment on above: Performed By: #### L [id number] #### [facility] ([facility]) [address] [place] [address] MCH (RBC) [Entitic mass] 26.9 pg Low 27.0-33.0 [facility] Comment on above: Performed By: #### L [id number] #### [facility] ([facility]) [address] [place] [address] MCV (RBC) [Entitic vol] 88.2 fL Normal 82.0-98.0 [facility] Comment on above: Performed By: #### L [id number] #### [facility] ([facility]) [address] [place] [address] PLATELETS (10*3/UL) IN BLOOD AUTOMATED COUNT 240 10*3/uL Normal 150-400 [facility] Comment on above: Performed By: #### L [id number] #### [facility] ([facility]) [address] [place] [address] RBC (Bld) [#/Vol] 4.76 10*6/uL Normal 4.20-5.70 [facility] Comment on above: Performed By: #### L [id number] #### [facility] ([facility]) [address] [place] [place] [address] WBC (Bld) [#/Vol] 8.22 10*3/uL Normal 4.00-10.60 [facility] [facility] Comment on above: Performed By: #### L [id number] #### [facility]) [address] [place] [address] MAGNESIUMon 10-09-2024 Magnesium [Mass/Vol] 2.0 mg/dL Normal 1.9-2.7 [facility] Comment on above: Performed By: #### L [id number] #### [facility] ([facility]) [address] [place] [address] BLOOD CULTUREon 10-08-2024 Bacteria identified Cx Nom (Bld) No growth at 5 days Normal [facility] Comment on above: Performed By: #### L [id number] ####[facility] ([facility])[place] [address] Order Comment: From a different site than #1. Performed By: #### L [id number] #### [facility] ([facility]) [facility] [address] C-REACTIVE PROTEINon 025 C REACTIVE PROTEIN (MG/L) IN SER/PLAS 26.6 mg/L High <=5.0 [facility] Comment on above: Result Comment: Test ing performed using a new methodology, turbidimetry. Normal ranges have been updated. Old normal range was <8 mg/L. Performed By: #### L [id number] ####[facility] ([facility])[place] [address] CBC WITH AUTO DIFFERENTIALon 10-08-2024 Basophils (Bld) [#/Vol] 0.06 10*3/uL Normal 0.00-0.20 [facility] Comment on above: Performed By: #### L [id number] #### [facility] ([facility]) [address] [place] [address] Basophils/100 WBC (Bld) 0.8 % Normal 0.0-1.0 [facility] Comment on above: Performed By: #### L [id number] #### [facility]) [address] [place] [address] Eosinophils (Bld) [#/Vol] 0.17 10*3/uL Normal 0.00-0.50 [facility] Comment on above: Performed By: #### L [id number] #### [facility] ([facility]) [address] [place] [address] Eosinophils/100 WBC (Bld) 2.3 % Normal 0.0-6.0 [facility] Comment on above: Performed By: #### L [id number] #### [facility] ([facility]) [address] [place] [address] Erythrocyte distribution width (RBC) [Ratio] 16.0 % High 11.5-15.0 [facility] Comment on above: Performed By: #### L [id number] #### [facility] ([facility]) [address] [place] [address] ERYTHROCYTE MEAN CORPUSCULAR HEMOGLOBIN CONCENTRATION (G/DL) BY AUTOMATED 30.3 g/dL Low 32.0-35.0 [facility] Comment on above: Performed By: #### L [id number] #### [facility] ([facility]) [address] [place] [address] Hematocrit (Bld) [Volume fraction] 40.9 % Normal 39.0-55.0 [facility] Comment on above: Performed By: #### L [id number] #### [facility]) [address] [place] [address] Hemoglobin (Bld) [Mass/Vol] 12.4 g/dL Low 13.0-17.0 [facility] Comment on above: Performed By: #### L [id number] #### [facility]) [address] [place] [address] Immature granulocytes (Bld) [#/Vol] 0.10 10*3/uL Normal 0.00-0.20 [facility] Comment on above: Performed By: #### L [id number] #### [facility]) [address] [place] [address] Immature granulocytes/100 WBC (Bld) 1.4 % High 0.0-1.0 [facility] Comment on above: Performed By: #### L [id number] #### [facility] [address] [place] [address] Lymphocytes (Bld) [#/Vol] 0.73 10*3/uL Low 1.20-4.00 [facility] Comment on above: Performed By: #### L [id number] #### [facility] [address] [place] [address] Lymphocytes/100 WBC (Bld) 10.0 % Low 20.0-45.0 [facility] Comment on above: Performed By: #### L [id number] #### [facility] ([facility]) [address] [place] [address] MCH (RBC) [Entitic mass] 26.7 pg Low 27.0-33.0 [facility] Comment on above: Performed By: #### L [id number] #### [facility] ([facility]) [address] [place] [address] MCV (RBC) [Entitic vol] 88.0 fL Normal 82.0-98.0 [facility] Comment on above: Performed By: #### L [id number] #### [facility]) [address] [place] [address] Monocytes (Bld) [#/Vol] 0.52 10*3/uL Normal 0.10-1.00 [facility] Comment on above: Performed By: #### L [id number] #### [facility] ([facility]) [address] [place] [address] Monocytes/100 WBC (Bld) 7.1 % Normal 5.0-12.0 [facility] Comment on above: Performed By: #### L [id number] #### [facility] [address] [place] [address] Neutrophils (Bld) [#/Vol] 5.73 10*3/uL Normal 1.60-7.60 [facility] Comment on above: Performed By: #### L [id number] #### [facility] ([facility]) [address] [place] [address] Neutrophils/100 WBC (Bld) 78.4 % High 40.0-72.0 [facility] Comment on above: Performed By: #### L [id number] #### [facility] ([facility]) [address] [place] [address] NRBC (PER 100 WBCS) BY AUTOMATED COUNT 0.0 % Normal 0 [facility] Comment on above: Performed By: #### L [id number] #### [facility]) [address] [place] [address] PLATELETS (10*3/UL) IN BLOOD AUTOMATED COUNT 231 10*3/uL Normal 150-400 [facility] Comment on above: Performed By: #### L [id number] #### [facility]) [address] [place] [address] RBC (Bld) [#/Vol] 4.65 10*6/uL Normal 4.20-5.70 [facility] Comment on above: Performed By: #### L [id number] #### [facility]) [address] [place] [address] WBC (Bld) [#/Vol] 7.31 10*3/uL Normal 4.00-10.60 [facility] Comment on above: Performed By: #### L [id number] #### [facility]) [address] [place] [address] COMPREHENSIVE METABOLIC PANE Clif 10-08-2024 Albumin [Mass/Vol] 3.7 g/dL Normal 3.5-5.7 [facility] Comment on above: Performed By: #### L [id number] #### [facility]) [address] [place] [address] ALP [Catalytic activity/Vol] 130 U/L High 34-104 [facility] Comment on above: Performed By: #### L [id number] #### [facility]) [address] [place] [address] ALT [Catalytic activity/Vol] 14 U/L Normal 7-52 [facility] Comment on above: Performed By: #### L [id number] #### [facility] ([facility]) [address] [place] [address] Anion gap [Moles/Vol] 9 mmol/L Normal 7-20 [facility] Comment on above: Performed By: #### L [id number] #### [facility] ([facility]) [address] [place] [address] AST [Catalytic activity/Vol] 19 U/L Normal 13-39 [facility] Comment on above: Performed By: #### L [id number] #### [facility] ([facility]) [address] [place] [address] Bilirubin [Mass/Vol] 0.7 mg/dL Normal 0.3-1.0 [facility] Comment on above: Performed By: #### L [id number] #### [facility] ([facility]) [address] [place] [address] Calcium [Mass/Vol] 9.5 mg/dL Normal 8.6-10.3 [facility] Comment on above: Performed By: #### L [id number] #### [facility] ([facility]) [address] [place] [address] Chloride [Moles/Vol] 99 mmol/L Normal 98-107 [facility] Comment on above: Performed By: #### L [id number] #### [facility] ([facility]) [address] [place] [address] CO2 [Moles/Vol] 37 mmol/L High 21-[address] [facility] Comment on above: Performed By: #### L [id number] #### [facility] ([facility]) [address] [place] [address] Creatinine [Mass/Vol] 0.96 mg/dL Normal 0.70-1.30 [facility] Comment on above: Performed By: #### L [id number] #### [facility] ([facility]) [address] [place] [address] GLOMERULAR FILTRATION RATE ML/MIN/1.73 SQ M.PREDICTED 93.3 mL/min/1.73m*2 Normal >60.0 [facility] Comment on above: Result Comment: [facility]???s estimated glomerular filtration rate (eGFR) will [...] individuals. Performed By: #### L [id number] #### [facility]) [address] [place] [address] Glucose [Mass/Vol] 83 mg/dL Normal 70-100 [facility] Comment on above: Performed By: #### L [id number] #### [facility] ([facility]) [address] [place] [address] Potassium [Moles/Vol] 4.2 mmol/L Normal 3.5-5.1 [facility] Comment on above: Performed By: #### L [id number] #### [facility]) [address] [place] [place] [address] Protein [Mass/Vol] 7.1 g/dL Normal 6.0-8.3 [facility] Comment on above: Performed By: #### L [id number] #### [facility]) [address] [place] [address] Sodium [Moles/Vol] 141 mmol/L Normal 136-145 [facility] Comment on above: Performed By: #### L [id number] #### [facility]) [address] [place] [address] Urea nitrogen [Mass/Vol] 10 mg/dL Normal 7-25 [facility] Comment on above: Performed By: #### L [id number] #### [facility] ([facility]) [address] [place] [address] UREA NITROGEN/CREATININE (MASS RATIO) IN SER/PLAS 10.4 Normal [facility] Comment on above: Performed By: #### L [id number] #### [facility] ([facility]) [address] [place] [address] CONSULTon 10-08-2024 CONSULT -- Attestation signed by [...] mg ta (more content not included)... Normal [facility] EDNURSon 10-08-2024 EDNURS Arrival: transfer fr [facility] Complaint: cellulitis to right leg, hx surgery on 09/24 Notes: patient arrived on this day [facility] from [facility] for pain to the right leg. Previous surgery at [facility] on 09/24 for right leg tib/fib fracture. Per [facility] staff, patient arrived with increased pain, redness and swelling to right lower extremity. Ultrasound was negative for DVT. [facility] ED treated for cellulitis, administered dose of zosyn at 0330, vancomycin at 2030 and 5mg oxycontin at 1930. Patient endorsed non-compliance, did not have post surgery follow up appointment and has been putting weight on leg. History of hypertension, patient O2 desat to 88% when sleeping. Per [facility], patient non-compliant with bipap. Upon arrival, patient endorsed pain 8/10 and nausea. Patient denied chest pain, fever, chills and shortness of breath. Normal [facility] EDPROVon 10-08-2024 EDPROV [facility] [address] [facility] [id number] EMERGENCY DEPARTMENT ENCOUNTER CHIEF COMPLAINT Chief Complaint Patient presents with Cellulitis HISTORY OF PRESENT ILLNESS Matty Garces is a 54 y.o. male who presents with a Chief Complaint Patient presents with Cellulitis REVIEW OF SYSTEMS Review of Systems Musculoskeletal: Positive for arthralgias. Skin: Positive for rash. All other systems reviewed and are negative. The patient is a 54-year-old male who was transferred from [facility] for cellulitis involving recent right lower extremity surgery. Patient had surgical pair of a tibia fracture on September 24. The patient states that he went to [facility] emergency department today due to increased swelling. Patient was given Zosyn and vancomycin at [facility]. Patient states that he is having [...] distress. B (more content not included)... Normal [facility] MAGNESIUMon 10-08-2024 Magnesium [Mass/Vol] 1.8 mg/dL Low 1.9-2.7 [facility] Comment on above: Performed By: #### L [id number] #### [facility]) [address] [place] [address] SEDIMENTATION RATEon 025 SEDIMENTATION RATE, ERYTHROCYTE 56 mm/hr High <20 [facility] Comment on above: Performed By: #### L [id number] #### [facility]) [address] [place] [address] VITAMIN D 25 HYDROXYon 10-08 CALCIDIOL (25 [place] VITAMIN D3) (NG/ML) IN SER/PLAS 37.0 ng/mL Normal 30.0-80.0 [facility] Comment on above: Result Comment: >80. 0 Toxicity possible Performed By: #### L [id number] ####[facility])[address] [place] [address] 36on 10-04-2024 36 [facility] and is seeing the patient for wound care, PT, and OT. Seeing patient a couple times a week could specify a number of times. States is also doing dressing changes. [phone] [facility] Telephoneon 10-04-2024 Telephone [id number] Francisco Javier Garces 1970 Date Provider Department Center 10/04/2024 [id number] MCCORMACK MP ORTHO MPORTHO No family history on file Reason for Visit and Comments: Information [Other] [facility] 36on 09-29-2024 36 Patient in home PT called and wanted to confirm if Dr. Hahn does the in home therapy approvals/orders or if he had to follow up with his PCP, staff writer informed her he does. Patient is scheduled for 10/05/24. [facility] BASIC METABOLIC PANELon 09-13 Anion gap [Moles/Vol] 7 mmol/L Normal 7-20 [facility] Comment on above: Performed By: #### L [id number] ####[facility] [place] [address] Calcium [Mass/Vol] 9.6 mg/dL Normal 8.6-10.3 [facility] Comment on above: Performed By: #### L [id number] ####[facility] ([facility] [place] [address] Chloride [Moles/Vol] 98 mmol/L Normal 98-107 [facility] Comment on above: Performed By: #### L [id number] ####[facility] ([facility])[address] [place] [address] CO2 [Moles/Vol] 34 mmol/L High 21-[address] [facility] Comment on above: Performed By: #### L [id number] ####[facility] [place] [address] Creatinine [Mass/Vol] 0.92 mg/dL Normal 0.70-1.30 [facility] Comment on above: Performed By: #### L [id number] ####[facility] ([facility] [place] [address] GLOMERULAR FILTRATION RATE ML/MIN/1.73 SQ M.PREDICTED 98.9 mL/min/1.73m*2 Normal >60.0 [facility] Comment on above: Result Comment: [facility]???s estimated glomerular filtration rate (eGFR) will [...] of individuals. Performed By: #### L [id number] ####[facility] ([facility])[address] [place] [address] Glucose [Mass/Vol] 99 mg/dL Normal 70-100 [facility] Comment on above: Performed By: #### L [id number] ####[facility] ([facility])[address] [place] [address] Potassium [Moles/Vol] 4.3 mmol/L Normal 3.5-5.1 [facility] Comment on above: Performed By: #### L [id number] ####[facility] [place] [address] Sodium [Moles/Vol] 135 mmol/L Low 136-145 [facility] Comment on above: Performed By: #### L [id number] ####[facility] [place] [address] Urea nitrogen [Mass/Vol] 20 mg/dL Normal 7-25 [facility] Comment on above: Performed By: #### L [id number] ####[facility] [place] [address] UREA NITROGEN/CREATININE (MASS RATIO) IN SER/PLAS 21.7 Normal [facility] Comment on above: Performed By: #### L [id number] ####[facility] ([facility])[address] [place] [address] CBCon 09-28-2024 Erythrocyte distribution width (RBC) [Ratio] 15.3 % High 11.5-15.0 [facility] Comment on above: Performed By: #### L [id number] #### [facility] ([facility]) [address] [place] [address] ERYTHROCYTE MEAN CORPUSCULAR HEMOGLOBIN CONCENTRATION (G/DL) BY AUTOMATED 30.9 g/dL Low 32.0-35.0 [facility] Comment on above: Performed By: #### L [id number] #### [facility] ([facility]) [address] [place] [address] Hematocrit (Bld) [Volume fraction] 44.4 % Normal 39.0-55.0 [facility] Comment on above: Performed By: #### L [id number] #### [facility]) [address] [place] [address] Hemoglobin (Bld) [Mass/Vol] 13.7 g/dL Normal 13.0-17.0 [facility] Comment on above: Performed By: #### L [id number] #### [facility]) [address] [place] [address] MCH (RBC) [Entitic mass] 26.5 pg Low 27.0-33.0 [facility] Comment on above: Performed By: #### L [id number] #### [facility]) [address] [place] [address] MCV (RBC) [Entitic vol] 85.9 fL Normal 82.0-98.0 [facility] Comment on above: Performed By: #### L [id number] #### [facility]) [address] [place] [address] PLATELETS (10*3/UL) IN BLOOD AUTOMATED COUNT 208 10*3/uL Normal 150-400 [facility] Comment on above: Performed By: #### L [id number] #### [facility]) [address] [place] [address] RBC (Bld) [#/Vol] 5.17 10*6/uL Normal 4.20-5.70 [facility] Comment on above: Performed By: #### L [id number] #### [facility]) [address] [place] [address] WBC (Bld) [#/Vol] 10.65 10*3/uL High 4.00-10.60 [facility] Comment on above: Performed By: #### L [id number] #### [facility]) [address] [place] [address] CONSULTon 09-28-2024 CONSULT Patient tried CPAP i [...] Referrals/Orders: Yes, Sleep Time Spent: 20 Normal [facility] DSon 09-28-2024 DS Admission Admitted 09/23/2024 for Fall, syncope Comminuted right tib/fib fracture CHF HTN Hypomagnesemia Enlarged right hilar node Enlarged prostate Discharge Diagnosis Fall, syncope Comminuted right tib/fib fracture CHF HTN Hypomagnesemia Enlarged right hilar node Enlarged prostate Obstructive sleep apnea Morbid obesity Atrial flutter, new onset Discharge Disposition Home-Health Care [facility] (06) Discharge Medications Your medication list START [...] Medications These medications were sent to [facility] - [place], [place] - [address] [place] [address] [place] [address], [facility] [address] acetaminophen 500 mg tablet aspirin 81 mg [...] team was informed at approximately 1730 per [facility] that patient went into a-flutter and sustained for approximately 2 hours fro (more content not included)... Normal [facility] EDPROVon 09-28-2024 EDPROV This report has been cancelled. Normal [facility] Letter (Out)on 09-28-2024 Letter (Out) [id number] Francisco Javier Garces 1970 M Date Provider Department Center 09/28/2024 [id number], GENERIC PRO*INIT None No family history on file Normal [facility] MAGNESIUMon 09-28-2024 Magnesium [Mass/Vol] 2.0 mg/dL Normal 1.9-2.7 [facility] Comment on above: Performed By: #### L [id number] #### [facility] ([facility]) [address] [place] [address] NURSNOTEon 01-16-2025 NURSNOTE PT signed AMA paperwork with trama team. Pt left with belongings and family. AMA paperwork in patient chart. Normal [facility] PHOSPHORUSon 09-28-2024 Magnesium [Mass/Vol] 3.3 mg/dL Normal 2.5-5.0 [facility] Comment on above: Performed By: #### L [id number] ####[facility] ([facility])[address] [place] [address] 30on 09-27-2024 30 The patient is Moderately [...] barriers include continue medications as ordered Normal [facility] 30 Daily Case Managemen t Update Multidisciplinary rounds have been completed. Barriers to Discharge: Pending clinical course; POD3 IMN; 4L NC. Patient refusing CPaP at rest/sleep, Pulm brennen consulted and following. PT/OT recommending IPR, PMR consulted and recommend IPR. Patient and spouse would like to go home with [facility]. Referrals sent, pending accepting [facility] agency>>Radha Mendenhall [facility] accepting. DME recommended--ariadna mo, bedside commode--scripts written and face to face notes signed.>>need sent to [employer] for fulfillment. SW following. Diet: Dietary Orders [...] R tib fib facrture Level of Consultation Crew Member assumes full responsibility 09/23/24 1231 09/23/24 1221 [...] Post muscular skeletal surgical procedure 09/24/24 1242 [facility] 30 The patient is Moderately Stable [...] for pain as ordered maintain safety precautions. [facility] 30 The patient is Moderately Stable [...] and behaviors that affect risk of falls Leary fall precautions as indicated by assessment Educate patient/family on patient safety, including physical limitations Instruct patient to call for assistance with activity based on assessment Modify environment to reduce risk of injury Normal [facility] BASIC METABOLIC PANELon 09-13 Anion gap [Moles/Vol] 9 mmol/L Normal 7-20 [facility] Comment on above: Performed By: #### L [id number] #### [facility] ([facility]) [address] [place] [address] Calcium [Mass/Vol] 9.3 mg/dL Normal 8.6-10.3 [facility] Comment on above: Performed By: #### L [id number] #### [facility] ([facility]) [address] [place] [address] Chloride [Moles/Vol] 99 mmol/L Normal 98-107 [facility] Comment on above: Performed By: #### L [id number] #### [facility] ([facility]) [address] [place] [address] CO2 [Moles/Vol] 33 mmol/L High 21-[address] [facility] Comment on above: Performed By: #### L [id number] #### [facility] ([facility]) [address] [place] [address] Creatinine [Mass/Vol] 0.89 mg/dL Normal 0.70-1.30 [facility] Comment on above: Performed By: #### L [id number] #### [facility] [address] [facility] [place] [address] GLOMERULAR FILTRATION RATE ML/MIN/1.73 SQ M.PREDICTED 101.8 mL/min/1.73m*2 Normal >60.0 [facility] Comment on above: Result Comment: [facility]???s estimated glomerular filtration rate (eGFR) will [...] individuals. Performed By: #### L [id number] #### [facility]) [address] [place] [address] Glucose [Mass/Vol] 95 mg/dL Normal 70-100 [facility] Comment on above: Performed By: #### L [id number] #### [facility]) [address] [place] [address] Potassium [Moles/Vol] 4.1 mmol/L Normal 3.5-5.1 [facility] Comment on above: Performed By: #### L [id number] #### [facility]) [address] [place] [address] Sodium [Moles/Vol] 137 mmol/L Normal 136-145 [facility] Comment on above: Performed By: #### L [id number] #### [facility]) [address] [place] [address] Urea nitrogen [Mass/Vol] 17 mg/dL Normal 7-25 [facility] Comment on above: Performed By: #### L [id number] #### [facility]) [address] [place] [address] UREA NITROGEN/CREATININE (MASS RATIO) IN SER/PLAS 19.1 Normal [facility] Comment on above: Performed By: #### L [id number] #### [facility] [address] [place] [address] CBCon 09-27-2024 Erythrocyte distribution width (RBC) [Ratio] 15.4 % High 11.5-15.0 [facility] Comment on above: Performed By: #### L [id number] #### [facility] ([facility]) [address] [place] [address] ERYTHROCYTE MEAN CORPUSCULAR HEMOGLOBIN CONCENTRATION (G/DL) BY AUTOMATED 30.8 g/dL Low 32.0-35.0 [facility] Comment on above: Performed By: #### L [id number] #### [facility] ([facility]) [address] [place] [address] Hematocrit (Bld) [Volume fraction] 45.5 % Normal 39.0-55.0 [facility] Comment on above: Performed By: #### L [id number] #### [facility] ([facility]) [address] [place] [address] Hemoglobin (Bld) [Mass/Vol] 14.0 g/dL Normal 13.0-17.0 [facility] Comment on above: Performed By: #### L [id number] #### [facility] ([facility]) [address] [place] [address] MCH (RBC) [Entitic mass] 26.5 pg Low 27.0-33.0 [facility] Comment on above: Performed By: #### L [id number] #### [facility] [address] [place] [address] MCV (RBC) [Entitic vol] 86.0 fL Normal 82.0-98.0 [facility] Comment on above: Performed By: #### L [id number] #### [facility] [address] [place] [address] PLATELETS (10*3/UL) IN BLOOD AUTOMATED COUNT 199 10*3/uL Normal 150-400 [facility] Comment on above: Performed By: #### L [id number] #### [facility] ([facility]) [address] [place] [address] RBC (Bld) [#/Vol] 5.29 10*6/uL Normal 4.20-5.70 [facility] Comment on above: Performed By: #### L [id number] #### [facility] ([facility]) [address] [place] [address] WBC (Bld) [#/Vol] 10.21 10*3/uL Normal 4.00-10.60 [facility] Comment on above: Performed By: #### L [id number] #### [facility] ([facility]) [address] [place] [address] MAGNESIUMon 09-27-2024 Magnesium [Mass/Vol] 1.9 mg/dL Normal 1.9-2.7 [facility] Comment on above: Performed By: #### L [id number] #### [facility] ([facility]) [address] [place] [address] PHOSPHORUSon 09-27-2024 Magnesium [Mass/Vol] 4.4 mg/dL Normal 2.5-5.0 [facility] Comment on above: Performed By: #### L [id number] #### [facility] ([facility]) [address] [place] [address] VENOUS BLOOD GAS WITH IONIZE D CALCIUMon 09-27-2024 Base excess Calc (BldV) [Moles/Vol] 9.2 mmol/L Normal [facility] Comment on above: Performed By: #### L [id number] ####[facility] RESPIRATORY [id number] [place] [address] [place] CALCIUM IONIZED (MMOL/L) IN BLOOD 1.27 mmol/L Normal 1.15-1.33 [facility] Comment on above: Performed By: #### L [id number] ####[facility] RESPIR[facility] [id number] [place] [address] [place] CO2 (BldV) [Partial pressure] 50 mm[Hg] Normal 40-50 [facility] Comment on above: Performed By: #### L [id number] ####[facility] RESPIRATORY [id number] [place] [address] [facility] HCO3 (Bld) [Moles/Vol] 34.8 mmol/L Normal [facility] Comment on above: Performed By: #### L [id number] ####[facility] RESPIRATORY [id number] [place] [address] [facility] Oxygen (BldV) [Partial pressure] 53 mm[Hg] High 35-45 [facility] Comment on above: Performed By: #### L [id number] ####[facility] RESPIRATORY [id number] [place] [address] [facility] OXYGEN SATURATION (%) IN VENOUS BLOOD 87.1 % High 65.0-75.0 [facility] Comment on above: Performed By: #### L [id number] ####[facility] RESPIRATORY [id number] [place] [address] [facility] PH OF VENOUS BLOOD 7.45 High 7.31-7.41 [facility] Comment on above: Performed By: #### L [id number] ####[facility] RESPIRATORY [id number] [place] [address] [facility] BASIC METABOLIC PANELon 09-13 Anion gap [Moles/Vol] 8 mmol/L Normal 7-20 [facility] Comment on above: Performed By: #### L [id number] #### [facility] ([facility]) [address] [place] [address] Calcium [Mass/Vol] 9.4 mg/dL Normal 8.6-10.3 [facility] Comment on above: Performed By: #### L [id number] #### [facility] ([facility]) [address] [place] [address] Chloride [Moles/Vol] 99 mmol/L Normal 98-107 [facility] Comment on above: Performed By: #### L [id number] #### [facility] ([facility]) [address] [place] [place] [address] CO2 [Moles/Vol] 36 mmol/L High 21-[address] [facility] Comment on above: Performed By: #### L [id number] #### [facility] ([facility]) [address] [place] [address] Creatinine [Mass/Vol] 0.91 mg/dL Normal 0.70-1.30 [facility] Comment on above: Performed By: #### L [id number] #### [facility] ([facility]) [address] [place] [address] GLOMERULAR FILTRATION RATE ML/MIN/1.73 SQ M.PREDICTED 100.2 mL/min/1.73m*2 Normal >60.0 [facility] Comment on above: Result Comment: [facility]???s estimated glomerular filtration rate (eGFR) will [...] individuals. Performed By: #### L [id number] #### [facility] ([facility]) [address] [place] [address] Glucose [Mass/Vol] 85 mg/dL Normal 70-100 [facility] Comment on above: Performed By: #### L [id number] #### [facility] ([facility]) [address] [place] [address] Potassium [Moles/Vol] 3.8 mmol/L Normal 3.5-5.1 [facility] Comment on above: Performed By: #### L [id number] #### [facility] ([facility]) [address] [place] [address] Sodium [Moles/Vol] 139 mmol/L Normal 136-145 [facility] Comment on above: Performed By: #### L [id number] #### [facility] ([facility]) [address] [place] [address] Urea nitrogen [Mass/Vol] 18 mg/dL Normal 7-25 [facility] Comment on above: Performed By: #### L [id number] #### [facility] ([facility]) [address] [place] [address] UREA NITROGEN/CREATININE (MASS RATIO) IN SER/PLAS 19.8 Normal [facility] Comment on above: Performed By: #### L [id number] #### [facility] [address] [place] [address] CBCon 09-26-2024 Erythrocyte distribution width (RBC) [Ratio] 15.4 % High 11.5-15.0 [facility] Comment on above: Performed By: #### L [id number] #### [facility] ([facility]) [address] [place] [address] ERYTHROCYTE MEAN CORPUSCULAR HEMOGLOBIN CONCENTRATION (G/DL) BY AUTOMATED 31.1 g/dL Low 32.0-35.0 [facility] Comment on above: Performed By: #### L [id number] #### [facility] ([facility]) [address] [place] [address] Hematocrit (Bld) [Volume fraction] 43.8 % Normal 39.0-55.0 [facility] Comment on above: Performed By: #### L [id number] #### [facility] [address] [place] [address] Hemoglobin (Bld) [Mass/Vol] 13.6 g/dL Normal 13.0-17.0 [facility] Comment on above: Performed By: #### L [id number] #### [facility] [address] [place] [address] MCH (RBC) [Entitic mass] 26.3 pg Low 27.0-33.0 [facility] Comment on above: Performed By: #### L [id number] #### [facility] [address] [place] [address] MCV (RBC) [Entitic vol] 84.7 fL Normal 82.0-98.0 [facility] Comment on above: Performed By: #### L [id number] #### [facility] ([facility]) [address] [place] [address] PLATELETS (10*3/UL) IN BLOOD AUTOMATED COUNT 186 10*3/uL Normal 150-400 [facility] Comment on above: Performed By: #### L [id number] #### [facility] ([facility]) [address] [place] [address] RBC (Bld) [#/Vol] 5.17 10*6/uL Normal 4.20-5.70 [facility] Comment on above: Performed By: #### L [id number] #### [facility] ([facility]) [address] [place] [address] WBC (Bld) [#/Vol] 9.63 10*3/uL Normal 4.00-10.60 [facility] Comment on above: Performed By: #### L [id number] #### [facility] ([facility]) [address] [place] [address] MAGNESIUMon 09-26-2024 Magnesium [Mass/Vol] 1.9 mg/dL Normal 1.9-2.7 [facility] Comment on above: Performed By: #### L [id number] #### [facility] ([facility]) [address] [place] [address] PHOSPHORUSon 09-26-2024 Magnesium [Mass/Vol] 2.6 mg/dL Normal 2.5-5.0 [facility] Comment on above: Performed By: #### L [id number] #### [facility] ([facility]) [address] [place] [address] 30on 09-25-2024 30 Problem: Pain - Adul [...] barriers include consult for respiratory therapy. Normal [facility] 30 Daily Case Managemen t Update [...] spouse would like to go home with [facility]. Referrals sent, pending accepting [facility] agency. DME recommended--wheelchai r, rolling walker, bedside [...] R tib fib facrture Level of Consultation Crew Member assumes full responsibility 09/23/24 1231 09/23/24 1221 [...] muscular skeletal surgical procedure 09/24/24 1242 Normal [facility] BASIC METABOLIC PANELon 09-13 Anion gap [Moles/Vol] 9 mmol/L Normal 7-20 [facility] Comment on above: Performed By: #### L [id number] ####[facility] ([facility])[address] [place] [address] Calcium [Mass/Vol] 8.9 mg/dL Normal 8.6-10.3 [facility] Comment on above: Performed By: #### L [id number] ####[facility] ([facility])[address] [place] [address] Chloride [Moles/Vol] 97 mmol/L Low 98-107 [facility] Comment on above: Performed By: #### L [id number] ####[facility] ([facility])[address] [place] [address] CO2 [Moles/Vol] 32 mmol/L High 21-[address] [facility] Comment on above: Performed By: #### L [id number] ####[facility] ([facility])[address] [place] [address] Creatinine [Mass/Vol] 0.91 mg/dL Normal 0.70-1.30 [facility] Comment on above: Performed By: #### L [id number] ####[facility] ([facility])[address] [place] [address] GLOMERULAR FILTRATION RATE ML/MIN/1.73 SQ M.PREDICTED 100.2 mL/min/1.73m*2 Normal >60.0 [facility] Comment on above: Result Comment: [facility]???s estimated glomerular filtration rate (eGFR) will [...] of individuals. Performed By: #### L [id number] ####[facility] ([facility])[address] [place] [address] Glucose [Mass/Vol] 141 mg/dL High 70-100 [facility] Comment on above: Performed By: #### L [id number] ####[facility] ([facility])[address] [place] [address] Potassium [Moles/Vol] 4.2 mmol/L Normal 3.5-5.1 [facility] Comment on above: Performed By: #### L [id number] ####[facility] ([facility])[address] [address] Sodium [Moles/Vol] 134 mmol/L Low 136-145 [facility] Comment on above: Performed By: #### L [id number] ####[facility] ([facility])[address] [place] [address] Urea nitrogen [Mass/Vol] 15 mg/dL Normal 7-25 [facility] Comment on above: Performed By: #### L [id number] ####[facility] ([facility])[address] [facility] [place] [address] UREA NITROGEN/CREATININE (MASS RATIO) IN SER/PLAS 16.5 Normal [facility] Comment on above: Performed By: #### L [id number] ####[facility] ([facility])[address] [place] [address] CBCon 09-25-2024 Erythrocyte distribution width (RBC) [Ratio] 14.9 % Normal 11.5-15.0 [facility] Comment on above: Performed By: #### L [id number] #### [facility] ([facility]) [address] [place] [address] ERYTHROCYTE MEAN CORPUSCULAR HEMOGLOBIN CONCENTRATION (G/DL) BY AUTOMATED 31.1 g/dL Low 32.0-35.0 [facility] Comment on above: Performed By: #### L [id number] #### [facility] ([facility]) [address] [place] [address] Hematocrit (Bld) [Volume fraction] 45.4 % Normal 39.0-55.0 [facility] Comment on above: Performed By: #### L [id number] #### [facility] [address] [place] [address] Hemoglobin (Bld) [Mass/Vol] 14.1 g/dL Normal 13.0-17.0 [facility] Comment on above: Performed By: #### L [id number] #### [facility] [address] [place] [address] MCH (RBC) [Entitic mass] 26.3 pg Low 27.0-33.0 [facility] Comment on above: Performed By: #### L [id number] #### [facility] [address] [place] [address] MCV (RBC) [Entitic vol] 84.5 fL Normal 82.0-98.0 [facility] Comment on above: Performed By: #### L [id number] #### [facility] [address] [place] [address] PLATELETS (10*3/UL) IN BLOOD AUTOMATED COUNT 205 10*3/uL Normal 150-400 [facility] Comment on above: Performed By: #### L [id number] #### [facility] [address] [place] [address] RBC (Bld) [#/Vol] 5.37 10*6/uL Normal 4.20-5.70 [facility] Comment on above: Performed By: #### L [id number] #### [facility] ([facility]) [address] [place] [address] WBC (Bld) [#/Vol] 14.37 10*3/uL High 4.00-10.60 [facility] Comment on above: Performed By: #### L [id number] #### [facility] ([facility]) [address] [place] [address] MAGNESIUMon 09-25-2024 Magnesium [Mass/Vol] 2.1 mg/dL Normal 1.9-2.7 [facility] Comment on above: Performed By: #### L [id number] ####[facility] [place] [address] NURSNOTEon 09-25-2024 NURSLEONORE Trauma RN met adrian dunham at bedside and provided the Trauma Services Patient Brochure. Patient will follow-up with Orthopedics 10/05/2024 at 0900. No further needs currently. Normal [facility] PHOSPHORUSon 09-25-2024 Magnesium [Mass/Vol] 2.8 mg/dL Normal 2.5-5.0 [facility] Comment on above: Performed By: #### L [id number] ####[facility] ([facility])[address] [place] [address] 30on 09-24-2024 30 The patient is Moderately [...] Free from fall injury Outcome: Progressing Normal [facility] BASIC METABOLIC PANELon 09-13 Anion gap [Moles/Vol] 8 mmol/L Normal 7-20 [facility] Comment on above: Performed By: #### L [id number] ####[facility] [place] [address] Calcium [Mass/Vol] 9.1 mg/dL Normal 8.6-10.3 [facility] Comment on above: Performed By: #### L [id number] ####[facility] [place] [address] Chloride [Moles/Vol] 98 mmol/L Normal 98-107 [facility] Comment on above: Performed By: #### L [id number] ####[facility] ([facility])[address] [place] [address] CO2 [Moles/Vol] 35 mmol/L High 21-[address] [facility] Comment on above: Performed By: #### L [id number] ####[facility] [place] [address] Creatinine [Mass/Vol] 1.02 mg/dL Normal 0.70-1.30 [facility] Comment on above: Performed By: #### L [id number] ####[facility] ([facility] [place] [address] GLOMERULAR FILTRATION RATE ML/MIN/1.73 SQ M.PREDICTED 87.3 mL/min/1.73m*2 Normal >60.0 [facility] Comment on above: Result Comment: [facility]???s estimated glomerular filtration rate (eGFR) will [...] of individuals. Performed By: #### L [id number] ####[facility] ([facility])[address] [place] [address] Glucose [Mass/Vol] 103 mg/dL High 70-100 [facility] Comment on above: Performed By: #### L [id number] ####[facility] ([facility])[address] [place] [address] Potassium [Moles/Vol] 4.2 mmol/L Normal 3.5-5.1 [facility] Comment on above: Performed By: #### L [id number] ####[facility] ([facility])[address] [place] [address] Sodium [Moles/Vol] 137 mmol/L Normal 136-145 [facility] Comment on above: Performed By: #### L [id number] ####[facility] [place] [address] Urea nitrogen [Mass/Vol] 11 mg/dL Normal 7-25 [facility] Comment on above: Performed By: #### L [id number] ####[facility] ([facility])[address] [place] [address] UREA NITROGEN/CREATININE (MASS RATIO) IN SER/PLAS 10.8 Normal [facility] Comment on above: Performed By: #### L [id number] ####[facility] ([facility])[address] [place] [address] CBCon 09-24-2024 Erythrocyte distribution width (RBC) [Ratio] 15.5 % High 11.5-15.0 [facility] Comment on above: Performed By: #### L [id number] #### [facility]) [address] [place] [address] ERYTHROCYTE MEAN CORPUSCULAR HEMOGLOBIN CONCENTRATION (G/DL) BY AUTOMATED 30.4 g/dL Low 32.0-35.0 [facility] Comment on above: Performed By: #### L [id number] #### [facility]) [address] [place] [address] Hematocrit (Bld) [Volume fraction] 46.4 % Normal 39.0-55.0 [facility] Comment on above: Performed By: #### L [id number] #### [facility]) [address] [place] [address] Hemoglobin (Bld) [Mass/Vol] 14.1 g/dL Normal 13.0-17.0 [facility] Comment on above: Performed By: #### L [id number] #### [facility] [address] [place] [address] MCH (RBC) [Entitic mass] 26.4 pg Low 27.0-33.0 [facility] Comment on above: Performed By: #### L [id number] #### [facility]) [address] [place] [address] MCV (RBC) [Entitic vol] 86.7 fL Normal 82.0-98.0 [facility] Comment on above: Performed By: #### L [id number] #### [facility]) [address] [place] [address] PLATELETS (10*3/UL) IN BLOOD AUTOMATED COUNT 175 10*3/uL Normal 150-400 [facility] Comment on above: Performed By: #### L [id number] #### [facility] ([facility]) [address] [place] [address] RBC (Bld) [#/Vol] 5.35 10*6/uL Normal 4.20-5.70 [facility] Comment on above: Performed By: #### L [id number] #### [facility]) [address] [place] [address] WBC (Bld) [#/Vol] 7.56 10*3/uL Normal 4.00-10.60 [facility] Comment on above: Performed By: #### L [id number] #### [facility]) [address] [place] [address] CONSULTon 09-24-2024 CONSULT Physical Medicine an d Rehabilitation Consult Note Patient not staffed by PM&R today due to surgery today for IMN placement. Our team will staff tomorrow, 09/25/23. Silvia Zaldivar MD Normal [facility] MAGNESIUMon 09-24-2024 Magnesium [Mass/Vol] 2.2 mg/dL Normal 1.9-2.7 [facility] Comment on above: Performed By: #### L [id number] #### [facility]) [address] [place] [address] OPNOTEon 09-24-2024 OPNOTE -- Attestation signed by [...] Operative Note Date: 09/23/2024 - 09/24/2024 Location: [facility] OR Name: Matty Garces, : [...] by intramedullary implant with interlocking screws [CPT: 13209] Stress exam of right ankle under anesthesia [CPT: 11339] Intraoperative use of fluoroscopy less than 1 hour by physician [CPT: 17269] Surgeons Primary: Sandrine Hahn MD Resident - [...] mm x 34 mm interlocking screw Staff: [employer] Delivery Driver: Emi Francis RN Supervisor Special Effects: CHARLINE Montejo Scrub Person: Araseli Butler CST Indications: Matty Garces is an 53 y.o. male who presented as a transfer from [facility] on 09/23/2024. Patient was transferred due to findings of a right distal third tibial shaft fracture after a fall in the shower. The fracture was closed and was subsequently reduced and splinted at [place] in a long-leg splint. Patient made stable [...] soft t (more content not included)... Normal [facility] PHOSPHORUSon 09-24-2024 Magnesium [Mass/Vol] 4.0 mg/dL Normal 2.5-5.0 [facility] Comment on above: Performed By: #### L [id number] #### [facility]) [address] [place] [address] POCT GLUCOSE METER UNSOLICIT ED RESULTSon 09-24-2024 Glucose [Mass/Vol] 100 mg/dL Normal 70-105 [facility] Comment on above: Order Comment: Waive d Testing in the ED is performed under the ED CLIA certificate #[id number]. Result Comment: asor [email or web address] Performed By: #### L [id number] #### [facility]) [address] [place] [address] APTTon 09-23-2024 ACTIVATED PARTIAL THROMBOPLASTIN TIME IN PPP BY COAGULATION ASSAY 31.2 Seconds Normal 25.0-35.0 [facility] Comment on above: Result Comment: Clin ical significance of the APTT is questionable in the presence of heparin. Performed By: #### L [id number] ####[facility])[address] [place] [address] CBC WITH AUTO DIFFERENTIALon 09-23-2024 Basophils (Bld) [#/Vol] 0.05 10*3/uL Normal 0.00-0.20 [facility] Comment on above: Performed By: #### L [id number] ####[facility])[address] [place] [address] Basophils/100 WBC (Bld) 0.5 % Normal 0.0-1.0 [facility] Comment on above: Performed By: #### L [id number] ####[facility] ([facility])[address] [place] [address] Eosinophils (Bld) [#/Vol] 0.11 10*3/uL Normal 0.00-0.50 [facility] Comment on above: Performed By: #### L [id number] ####[facility] ([facility])[address] [place] [address] Eosinophils/100 WBC (Bld) 1.0 % Normal 0.0-6.0 [facility] Comment on above: Performed By: #### L [id number] ####[facility] ([facility])[address] [place] [address] Erythrocyte distribution width (RBC) [Ratio] 15.9 % High 11.5-15.0 [facility] Comment on above: Performed By: #### L [id number] ####[facility] ([facility])[address] [place] [address] ERYTHROCYTE MEAN CORPUSCULAR HEMOGLOBIN CONCENTRATION (G/DL) BY AUTOMATED 30.3 g/dL Low 32.0-35.0 [facility] Comment on above: Performed By: #### L [id number] ####[facility] (BEAKER)[address] [place] [address] Hematocrit (Bld) [Volume fraction] 47.8 % Normal 39.0-55.0 [facility] Comment on above: Performed By: #### L [id number] ####[facility] (BEAKER)[address] [place] [address] Hemoglobin (Bld) [Mass/Vol] 14.5 g/dL Normal 13.0-17.0 [facility] Comment on above: Performed By: #### L [id number] ####[facility] [facility] (BEAKER)[address] [place] [address] Immature granulocytes (Bld) [#/Vol] 0.10 10*3/uL Normal 0.00-0.20 [facility] Comment on above: Performed By: #### L [id number] ####[facility] (BEAKER)[address] [place] [address] Immature granulocytes/100 WBC (Bld) 0.9 % Normal 0.0-1.0 [facility] Comment on above: Performed By: #### L [id number] ####[facility] (BEAKER)[address] [place] [address] Lymphocytes (Bld) [#/Vol] 0.74 10*3/uL Low 1.20-4.00 [facility] Comment on above: Performed By: #### L [id number] ####[facility] (BEAKER)[address] [place] [address] Lymphocytes/100 WBC (Bld) 7.0 % Low 20.0-45.0 [facility] Comment on above: Performed By: #### L [id number] ####[facility] (BEAKER)[address] [place] [address] MCH (RBC) [Entitic mass] 26.4 pg Low 27.0-33.0 [facility] Comment on above: Performed By: #### L [id number] ####[facility] (BEAKER)[address] [place] [address] MCV (RBC) [Entitic vol] 87.1 fL Normal 82.0-98.0 [facility] Comment on above: Performed By: #### L [id number] ####[facility] (BEAKER)[address] [place] [address] Monocytes (Bld) [#/Vol] 0.73 10*3/uL Normal 0.10-1.00 [facility] Comment on above: Performed By: #### L [id number] ####[facility] (BEAKER)[address] [place] [address] Monocytes/100 WBC (Bld) 6.9 % Normal 5.0-12.0 [facility] Comment on above: Performed By: #### L [id number] ####[facility] [place] [address] Neutrophils (Bld) [#/Vol] 8.83 10*3/uL High 1.60-7.60 [facility] Comment on above: Performed By: #### L [id number] ####[facility] ([facility])[address] [place] [address] Neutrophils/100 WBC (Bld) 83.7 % High 40.0-72.0 [facility] Comment on above: Performed By: #### L [id number] ####[facility] ([facility])[address] [place] [address] NRBC (PER 100 WBCS) BY AUTOMATED COUNT 0.0 % Normal 0 [facility] Comment on above: Performed By: #### L [id number] ####[facility] ([facility])[address] [place] [address] PLATELETS (10*3/UL) IN BLOOD AUTOMATED COUNT 188 10*3/uL Normal 150-400 [facility] Comment on above: Performed By: #### L [id number] ####[facility] ([facility])[address] [place], [place] [address] RBC (Bld) [#/Vol] 5.49 10*6/uL Normal 4.20-5.70 [facility] Comment on above: Performed By: #### L [id number] ####[facility] ([facility])[address] [address] WBC (Bld) [#/Vol] 10.56 10*3/uL Normal 4.00-10.60 [facility] Comment on above: Performed By: #### L [id number] ####[facility] [place] [address] COMPREHENSIVE METABOLIC PANE Clif 09-23-2024 Albumin [Mass/Vol] 3.9 g/dL Normal 3.5-5.7 [facility] Comment on above: Performed By: #### L [id number] ####[facility] (BEAKER)[address] [place] [address] ALP [Catalytic activity/Vol] 98 U/L Normal 34-104 [facility] Comment on above: Performed By: #### L [id number] ####[facility] (BEAKER)[address] [place] [address] ALT [Catalytic activity/Vol] 34 U/L Normal 7-52 [facility] Comment on above: Performed By: #### L [id number] ####[facility] (BEAKER)[address] [place] [address] Anion gap [Moles/Vol] 11 mmol/L Normal 7-20 [facility] Comment on above: Performed By: #### L [id number] ####[facility] (BEAKER)[address] [place] [address] AST [Catalytic activity/Vol] 63 U/L High 13-39 [facility] Comment on above: Performed By: #### L [id number] ####[facility] (BEAKER)[address] [place] [address] Bilirubin [Mass/Vol] 0.7 mg/dL Normal 0.3-1.0 [facility] Comment on above: Performed By: #### L [id number] ####[facility] (BEAKER)[address] [place] [address] Calcium [Mass/Vol] 8.9 mg/dL Normal 8.6-10.3 [facility] Comment on above: Performed By: #### L [id number] ####[facility] (BEAKER)[address] [place] [address] Chloride [Moles/Vol] 101 mmol/L Normal 98-107 [facility] Comment on above: Performed By: #### L [id number] ####[facility] (BEAKER)[address] [place] [address] CO2 [Moles/Vol] 27 mmol/L Normal 21-[address] [facility] Comment on above: Performed By: #### L [id number] ####[facility] ([facility])[address] [place] [address] Creatinine [Mass/Vol] 0.96 mg/dL Normal 0.70-1.30 [facility] Comment on above: Performed By: #### L [id number] ####[facility] ([facility])[address] [place] [address] GLOMERULAR FILTRATION RATE ML/MIN/1.73 SQ M.PREDICTED 93.9 mL/min/1.73m*2 Normal >60.0 [facility] Comment on above: Result Comment: The [facility]???s estimated glomerular filtration rate (eGFR) will [...] of individuals. Performed By: #### L [id number] ####[facility] ([facility])[address] [place] [address] Glucose [Mass/Vol] 93 mg/dL Normal 70-100 [facility] Comment on above: Performed By: #### L [id number] ####[facility] ([facility])[address] [place] [address] Potassium [Moles/Vol] 4.3 mmol/L Normal 3.5-5.1 [facility] Comment on above: Performed By: #### L [id number] ####[facility] ([facility])[address] [place] [address] Protein [Mass/Vol] 7.2 g/dL Normal 6.0-8.3 [facility] Comment on above: Performed By: #### L [id number] ####[facility] ([facility])[address] [place] [address] Sodium [Moles/Vol] 135 mmol/L Low 136-145 [facility] Comment on above: Performed By: #### L [id number] ####[facility] (BEAKER)[address] [place] [address] Urea nitrogen [Mass/Vol] 8 mg/dL Normal 7-25 [facility] Comment on above: Performed By: #### L [id number] ####[facility] ([place])[address] [place] [address] UREA NITROGEN/CREATININE (MASS RATIO) IN SER/PLAS 8.3 Normal [facility] Comment on above: Performed By: #### L [id number] ####[facility] ([place])[address] [place] [address] CONSULTon 09-23-2024 CONSULT -- Attestation signed by [...] Alvarez MD Orthopaedic Surgery, Resident Ortho Pager [phone] 09/23/24 6:55 PM May contact the on-call resident with any concerns via the Orthopaedic pager at any time. Normal [facility] CT ABDOMEN PELVIS W IV CONTR [...] advised. * Electronically signed: Fahad Frazier. Normal [facility] CT CERVICAL SPINE WO IV CONT [...] nor listhesis. Electronically signed: Fahad Frazier. Normal [facility] CT CHEST W IV CONTRASTon CT [...] is recommended. Electronically signed: Fahad Frazier. Normal [facility] CT HEAD WO IV CONTRASTon CT [...] brain * Electronically signed: Fahad Frazier. Normal [facility] CT TIBIA FIBULA RIGHT WO IV [...] the knee Electronically signed: Fahad Frazier. Normal [facility] EDNURSon 09-23-2024 EDNURS Mode of arrival (squ ad #, walk in, police, etc): SEMS Chief complaint(s): Right leg fracture Arrival Note (brief scenario, treatment SPORTS COMMENTATOR, etc): Patient arrives via [facility] from [facility] to be seen by orthopedics for Right tib-fib fracture. Patient arrives with Rt leg splinted Normal [facility] EDPROVon 09-23-2024 EDPROV History of Present Illness Chief Complaint Patient presents with Leg Injury Initial evaluation completed by Dr. Lang. Matty Garces is a 53 y/o male presenting to the ED with c/o leg injury. Pt was transferred from [facility] for right distal tibfib fracture. Pt states [...] Procedure Abnormality Status --------- ------ CBC auto differential[[id number]] Abnormal Final result Please view results for these tests on the individual orders. TYPE AND SCREEN ABO G (more content not included)... Normal [facility] ETHANOLon 09-23-2024 ETHANOL (MG/DL) IN SER/PLAS <10 Normal <10 [facility] Comment on above: Performed By: #### L [id number] #### [facility]) [address] [place] [address] ETHANOL CALCULATED (%) <0.01 Normal [facility] Comment on above: Performed By: #### L [id number] #### [facility]) [address] [place] [address] HPon 09-23-2024 [facility] Trauma Surgery Chief Complaint: Trauma Fall Mechanism of Injury: 53 y.o. year old male who was brought in via EMS. He had no C-collar or back board in place. Circumstances of injury: Patient states that he was recently admitted to [facility] for cellulitis to the [facility], he was discharged yesterday and this morning was home, he got out of bed to take a shower and had a micro seizure and heard his right ankle snap. Denies hitting head or LOC but admits that he doesn't remember the whole event. He went back to [facility] ED where a right tib/fib fracture was found and patient was transferred to [facility] Of note patient is on anticoagulant/antiplat elets. Baby aspirin, however he was receiving Shots to prevent blood clots while inpatient at [facility] Review of Systems: General: No For Chills, [...] Marijuana. Family History: pulled available information in [facility] from previous visits No family history on [...] lb)] 136 kg (300 lb) (09/23 1048) [place] Coma Scale Score: 15 No intake or [...] Neck: Cervica (more content not included)... Normal [facility] LACTIC ACID, PLASMAon 2024 LACTATE (MMOL/L) IN SER/PLAS 0.6 mmol/L Normal 0.5-2.2 [facility] Comment on above: Performed By: #### L [id number] #### [facility] (BEAKER) [address] [place] [address] MAGNESIUMon 09-23-2024 Magnesium [Mass/Vol] 1.8 mg/dL Low 1.9-2.7 [facility] Comment on above: Performed By: #### L [id number] ####[facility] (BEAKER)[address] [place] [address] PHOSPHORUSon 09-23-2024 Magnesium [Mass/Vol] 3.5 mg/dL Normal 2.5-5.0 [facility] Comment on above: Performed By: #### L [id number] #### [facility] (BEAKER) [address] [place] [address] PROTIME-INRon 09-23-2024 INR IN PPP BY COAGULATION ASSAY 1.28 High 0.90-1.10 [facility] Comment on above: Result Comment: [...] 1995;108:231S-246S. Performed By: #### L [id number] #### [facility]) [address] [place] [address] PROTHROMBIN TIME (PT) IN PPP BY COAGULATION ASSAY 15.9 Seconds High 12.3-14.8 [facility] Comment on above: Performed By: #### L [id number] #### [facility]) [address] [place] [address] TOXICOLOGY PANEL URINEon AMPHETAMINE+METHAMPH ETAMINE SCREEN (PRESENCE) IN URINE Negative Normal Negative [facility] Comment on above: Performed By: #### L [id number] #### [facility]) [address] [place] [address] BARBITURATES PRESENCE IN URINE BY SCREEN METHOD Negative Normal Negative [facility] Comment on above: Performed By: #### L [id number] #### [facility] [address] [place] [address] Benzodiazepines Ql (U) Negative Normal Negative [facility] Comment on above: Performed By: #### L [id number] #### [facility] ([facility]) [address] [place] [address] CANNABINOID (PRESENCE) IN URINE BY SCREEN METHOD Negative Normal Negative [facility] Comment on above: Performed By: #### L [id number] #### [facility] ([facility]) [address] [place] [address] Cocaine Ql (U) Negative Normal Negative [facility] Comment on above: Performed By: #### L [id number] #### [facility] ([facility]) [address] [place] [address] METHADONE (PRESENCE) IN URINE BY SCREEN METHOD Negative Normal Negative [facility] Comment on above: Performed By: #### L [id number] #### [facility] ([facility]) [address] [place] [address] OPIATES (PRESENCE) IN URINE BY SCREEN METHOD Positive Abnormal Negative [facility] Comment on above: Performed By: #### L [id number] #### [facility]) [address] [place] [address] PHENCYCLIDINE PRESENCE IN URINE BY SCREEN METHOD Negative Normal Negative [facility] Comment on above: Performed By: #### L [id number] #### [facility] ([facility]) [address] [place] [address] Propoxyphene Screen Ql (U) Negative Normal Negative [facility] Comment on above: Performed By: #### L [id number] #### [facility] ([facility]) [address] [place] [address] TRICYCLIC ANTIDEPRESSANTS (PRESENCE) IN URINE Negative Normal Negative [facility] Comment on above: Performed By: #### L [id number] #### [facility]) [address] [place] [address] TROPONIN Ion 09-23-2024 Troponin I.cardiac [Mass/Vol] 0.01 ng/mL Normal 0.00-0.04 [facility] Comment on above: Performed By: #### L [id number] #### [facility] ([facility]) [address] [place] [address] TYPE AND SCREENon 09-23-2024 AB SCREEN Negative Normal [facility] Comment on above: Performed By: #### L [id number] #### [facility] ([facility]) [address] [place] [address] ABO group Nom (Bld) A Normal [facility] Comment on above: Performed By: #### L [id number] #### [facility] ([facility]) [address] [place] [address] RH TYPE IN BLOOD Positive Normal [facility] Comment on above: Performed By: #### L [id number] #### [facility] ([facility]) [address] [place] [address] URINALYSISon 09-23-2024 BILIRUBIN, TOTAL PRESENCE IN URINE Negative Normal Negative [facility] Comment on above: Order Comment: Micro scopics not performed on urines with negative chemical reactions unless requested on original order. Performed By: #### L [id number] ####[facility] ([facility])[address] [place] [address] Clarity (U) Clear Normal Clear [facility] Comment on above: Order Comment: Micro scopics not performed on urines with negative chemical reactions unless requested on original order. Performed By: #### L [id number] ####[facility] ([facility])[address] [place] [address] Color (U) Yellow Normal Colorless, Yellow, Light-Yellow [facility] Comment on above: Order Comment: Micro scopics not performed on urines with negative chemical reactions unless requested on original order. Performed By: #### L [id number] ####[facility] ([facility])[address] [place] [address] GLUCOSE (MG/DL) IN URINE Normal Normal Normal [facility] Comment on above: Order Comment: Micro scopics not performed on urines with negative chemical reactions unless requested on original order. Performed By: #### L [id number] ####[facility] (BEAKER)[address] [place] [address] HEMOGLOBIN PRESENCE IN URINE Negative Normal Negative [facility] Comment on above: Order Comment: Micro scopics not performed on urines with negative chemical reactions unless requested on original order. Performed By: #### L [id number] ####[facility] [place] [address] Ketones Ql (U) Negative Normal Negative [facility] Comment on above: Order Comment: Micro scopics not performed on urines with negative chemical reactions unless requested on original order. Performed By: #### L [id number] ####[facility] ([facility])[address] [place] [address] LEUKOCYTE ESTERASE PRESENCE IN URINE BY TEST STRIP Negative Normal Negative [facility] Comment on above: Order Comment: Micro scopics not performed on urines with negative chemical reactions unless requested on original order. Performed By: #### L [id number] ####[facility] ([facility])[address] [place] [address] NITRITE PRESENCE IN URINE Negative Normal Negative [facility] Comment on above: Order Comment: Micro scopics not performed on urines with negative chemical reactions unless requested on original order. Performed By: #### L [id number] ####[facility] ([facility])[address] [place] [address] pH (U) 6.0 [pH] Normal 5.0-8.0 [facility] Comment on above: Order Comment: Micro scopics not performed on urines with negative chemical reactions unless requested on original order. Performed By: #### L [id number] ####[facility] ([facility])[address] [place] [address] Protein (U) [Mass/Vol] Negative Normal Negative [facility] Comment on above: Order Comment: Micro scopics not performed on urines with negative chemical reactions unless requested on original order. Performed By: #### L [id number] ####[facility] [place] [address] Specific gravity (U) [Rel density] 1.050 High 1.010-1.030 [facility] Comment on above: Order Comment: Micro scopics not performed on urines with negative chemical reactions unless requested on original order. Performed By: #### L [id number] ####[facility] ([facility])[address] [place] [address] UROBILINOGEN (MG/DL) IN URINE Normal Normal Normal [facility] Comment on above: Order Comment: Micro scopics not performed on urines with negative chemical reactions unless requested on original order. Performed By: #### L [id number] ####[facility] ([facility])[address] [place] [address] VITAMIN D 25 HYDROXYon 09-23 CALCIDIOL (25 [place] VITAMIN D3) (NG/ML) IN SER/PLAS 42.6 ng/mL Normal 30.0-80.0 [facility] Comment on above: Result Comment: >80. 0 Toxicity possible Performed By: #### L [id number] #### [facility] ([facility]) [address] [place] [address] Superficial Wound Cultureon 09-21-2024 Superficial Wound Culture [...] RESISTANT TO ALL B-LACTAM DRUGS. PERFORMED BY: [place] [id number] PATHOLOGIST DIGITAL PRODUCT MANAGER STEVE ANGEL M.D. Normal [facility] Comment on above: Performed By: #### C USUP #### [address] [address] [place] Clif 01-03-2024 L Specimen: [id number] Received: 01/03/24 Status: GIAToni Prince Num: [id number] Spec Type: Surgical Subm Dr: Trey Vallejo DPM, [place] Tissues: A Bone Fragments - Pathologic Fracture (PROXIMAL PHALANX RIGHT HALLU) Procedures: HE/2, Gross/Micro L5, Decalcification Age/ Patient Sex Location Account Attending Physician MiliMatty Toni 53/M [place] [id number] Trey Vallejo DPM, [place] SPEC NUM: [id number] RECD: 01/03/24 STATUS: GIOVANNI PRINCE NUM: [id number] SOFY: 01/03/[address]: Trey Vallejo DPM, [place] ENTERED: 01/03/24 [facility] DR: Toño,Ayesha SPEC TYPE: Surgical DEPT: [...] Sectioning reveals unremarkable yellow, spongy bone matrix. Regional Sales Executive sections are submitted in A1 following decal. Clinical history: Non-pressure chronic ulcer . Right hallux IPJ arthroplasty with wound debridement and graft application TW ---- Specimen: [id number] Received: 01/03/24 Status: GIOVANNI Prince Num: [id number] Spec Type: Surgical Subm Dr: Trey Vallejo,[place], [place] Tissues: A Bone Fragments - Pathologic Fracture (PROXIMAL PHALANX RIGHT HALLU) Procedures: HE/2, Gross/Micro L5, Decalcification ---- Patient: Matty Garces [id number] (Continued) ---- Specimen: [id number] Received: 01/03/24 (Continued) Signed (signature on file) Viral Rae MD 01/06/24 1838 ---- Specimen: [id number] Received: 01/03/24 Status: GIOVANNI Prince Num: [id number] Spec Type: Surgical Subm Dr: Trey Vallejo DPM, [place] Tissues: A Bone Fragments - Pathologic Fracture (PROXIMAL PHALANX RIGHT HALLU) Procedures: HE/2, Gross/Micro L5, Decalcification ---- Patient: Matty Garces Toni [id number] (Continued) ---- Specimen: [id number] Received: 01/03/24 (Continued) CPT Codes 89244 ---- ---- Specimen: [id number] Received: 01/03/24 Status: GIOVANNI Prince Num: [id number] Spec Type: Surgical Subm Dr: Trey Vallejo DPM, [place] Tissues: A Bone Fragments - Pathologic Fracture (PROXIMAL PHALANX RIGHT HALLU) Procedures: HE/2, Gross/Micro L5, Decalcification ---- Patient: Matty Garces [id number] (Continued) ---- Signed (signature on file) Viral Rae MD 01/06/24 1838 Normal [facility] CT CSPINE WO CONon [...] by: ANGEL JORDAN Date: 2022-12-06 06:37 Normal [facility] CT FACIAL BONES WO CONon [...] Date: 2022-12-06 06:41 Normal [facility] CT HEAD WO CONon 12-06-2022 CT [...] ANGEL JORDAN Date: 2022-12-06 06:39 Normal [facility] XR ELBOW RT MIN 3 VIEWSon XR ELBOW RT MIN 3 VIEWS Exam: Radiographs: XR ELBOW RT MIN 3 VIEWS Reason for exam: Elbow pain Comparison: None IMPRESSION: Right elbow degenerative changes. Olecranon spur. Remainder of the right elbow is unremarkable. Electronically authenticated by: MICHAEL CASANOVA Date: 2022-12-06 07:22 Normal [facility] XR FOREARM RT 2Von 3 XR FOREARM RT 2V Exam: Radiographs: X R FOREARM RT 2V Reason for exam: Forearm pain Comparison: None IMPRESSION: Mild degenerative changes in the right elbow and wrist. Right forearm is otherwise unremarkable. Electronically authenticated by: MICHAEL CASANOVA Date: 2022-12-06 08:07 Normal [facility] PSA, FREE AND TOTAL RATIOon 12-03-2022 % Free PSA 9.0 % Normal [facility] Comment on above: Result [...] By: #### P SAFREE #### [facility] [address] [place] [address] Dr. Shabnam Rae Prostate specific Ag [Mass/Vol] 5.9 ng/mL Critically high 0.0-4.0 [facility] Comment on above: Result Comment: Roch e ECLIA methodology. . According to the [place] [employer], Serum PSA should decrease and [...] By: #### P SAFREE #### [facility] [address] [place] [address] Dr. Shabnam Rae PSA, Free 0.53 ng/mL Normal N/A [facility] Comment on above: Result Comment: Roch e ECLIA methodology. Performed By: #### P SAFREE #### [facility] [address] [place] [address] Dr. Shabnam Rae INSULINon 12-02-2022 Insulin 20.2 uIU/mL Normal 2.6-24.9 [facility] Comment on above: Performed By: #### P SASC #### [facility] [address] [place] [address] Dr. Shabnam Rae TESTOSTERONE, TOTALon 2022 Testosterone [Mass/Vol] 256 ng/dL Critically low 264-916 [facility] Comment on above: Result Comment: Adul t male reference interval is based on a population of healthy nonobese males (BMI <30) between 19 and 39 years old. adia Ch.al. JCEM 2017,102;3176-7463. PMID: [id number]. Performed By: #### P SASC #### [facility] [address] [address] [address] Shabnam Rae CBC AUTO DIFFon 12-01-2022 BASO # 0.1 103/ul Normal 0.0-0.1 [facility] Comment on above: Performed By: #### P SASC #### [facility] [address] [place] [address] [address] Shabnam Rae Basophils/100 WBC (Bld) 1.0 % Normal 0.2-2.0 [facility] Comment on above: Performed By: #### P SASC #### [facility] [address] [place] [address] [address] Shabnam Rae EO # 0.1 103/ul Normal 0.0-0.7 [facility] Comment on above: Performed By: #### P SASC #### [facility] [address] [address] [address] Shabnam Rae Eosinophils/100 WBC (Bld) 1.8 % Normal 0.9-7.0 [facility] Comment on above: Performed By: #### P SASC #### [facility] [address] [address] [address] Shabnam Rae Erythrocyte distribution width (RBC) [Ratio] 14.8 % Normal 11.0-15.0 [facility] Comment on above: Performed By: #### P SASC #### [facility] [address] [place] [address] Dr. Shabnam Rae Hematocrit (Bld) [Volume fraction] 49.9 % Normal 42.0-54.0 [facility] Comment on above: Performed By: #### P SASC #### [facility] [address] [address] [address] Shabnam Rae Hemoglobin (Bld) [Mass/Vol] 16.0 g/dL Normal 14.0-18.0 [facility] Comment on above: Performed By: #### P SASC #### [facility] [address] [address] [address] Shabnam Rae IG # 0.04 10e3/ul Critically high 0.00-0.03 [facility] Comment on above: Performed By: #### P SASC #### [facility] [address] [address] [address] Shabnam Rae IG % 0.6 % Critically high 0.0-0.5 [facility] Comment on above: Performed By: #### P SASC #### [facility] [address] [place] [address] Dr. Shabnam Rae LYMPH # 1.0 103/ul Critically low 1.2-3.8 [facility] Comment on above: Performed By: #### P SASC #### [facility] [address] [place] [address] Dr. Shabnam Rae Lymphocytes/100 WBC (Bld) 16.2 % Critically low 20.5-60.0 [facility] Comment on above: Performed By: #### P SASC #### [facility] [address] [place] [address] Dr. Shabnam Rae MANUAL DIFF REQ NO Normal [facility] Comment on above: Performed By: #### P SASC #### [facility] [address] [address] [address] Shabnam Rae MCH (RBC) [Entitic mass] 27.7 pg Normal 25.9-34.0 [facility] Comment on above: Performed By: #### P SASC #### [facility] [address] [place] [address] Dr. Shabnam Rae MCHC (RBC) [Mass/Vol] 32.1 g/dL Normal 29.9-35.2 [facility] Comment on above: Performed By: #### P SASC #### [facility] [address] [address] [address] Shabnam Rae MCV (RBC) [Entitic vol] 86.3 fL Normal 80.0-94.0 [facility] Comment on above: Performed By: #### P SASC #### [facility] [address] [address] [address] Shabnam Rae MONO # 0.5 103/ul Normal 0.3-0.8 [facility] Comment on above: Performed By: #### P SASC #### [facility] [address] [address] [address] Shabnam Rae Monocytes/100 WBC (Bld) 7.6 % Normal 1.7-12.0 [facility] Comment on above: Performed By: #### P SASC #### [facility] [address] [place] [address] Dr. Shabnam Rae NEUT # 4.6 103/ul Normal 1.4-6.5 [facility] Comment on above: Performed By: #### P SASC #### [facility] [address] [place] [address] Dr. Shabnam Rae Neutrophils/100 WBC (Bld) 72.8 % Normal 43.0-75.0 [facility] Comment on above: Performed By: #### P SASC #### [facility] [address] [place] [address] Dr. Shabnam Rae Platelet mean volume (Bld) [Entitic vol] 9.8 fL Normal 9.5-13.5 [facility] Comment on above: Performed By: #### P SASC #### [facility] [address] [place] [address] Dr. Shabnam Rae PLT 203 103/ul Normal 150-450 [facility] Comment on above: Performed By: #### P SASC #### [facility] [address] [place] [address] Dr. Shabnam Rae RBC 5.78 106/ul Normal 4.70-6.10 [facility] Comment on above: Performed By: #### P SASC #### [facility] [address] [address] [address] Shabnam Rae WBC 6.3 103/ul Normal 4.0-11.0 [facility] Comment on above: Performed By: #### P SASC #### [facility] [address] [address] [address] Shabnam Rae FREE THYROXINE INDEX T7on FTI 2.05 Normal 1.30-4.50 [facility] Comment on above: Performed By: #### T SH, CMP, LIPID, T7, URIC #### [facility] [address] [address] [address] Shabnam Rae T3U 33.0 % Normal 33.0-40.0 [facility] Comment on above: Performed By: #### T SH, CMP, LIPID, T7, URIC #### [facility] [address] [place] [address] Dr. Shabnam Rae T4 [Mass/Vol] 6.20 ug/dL Normal 4.50-12.10 [facility] Comment on above: Performed By: #### T SH, CMP, LIPID, T7, URIC #### [facility] [address] [address] [address] Shabnam Rae GLYCOHEMOGLOBIN A1Con 2022 ADA RECOMMENDATION SEE BELOW Normal [facility] Comment on above: Result Comment: ADA RECOMMENDED LIMIT 4.0 - 6.0 ADA THERAPEUTIC TARGET < 7.0 ACTION SUGGESTED > 7.0 Performed By: #### P SASC #### [facility] [address] [address] [address] Shabnam Rae Glucose [Mass/Vol] 114 mg/dL Normal [facility] Comment on above: Performed By: #### P SASC #### [facility] [address] [place] [address] Dr. Shabnam Rae HbA1c (Bld) [Mass fraction] 5.6 % Normal 4.5-6.2 [facility] Comment on above: Performed By: #### P SASC #### [facility] [address] [place] [address] Dr. Shabnam Rae LIPID PROFILEon 12-01-2022 CHOL-HDL RATIO NORM SEE BELOW Normal [facility] Comment on above: Result Comment: 3.3 - 4.4 LOW RISK 4.4 - 7.1 AVERAGE RISK 7.1 - 11.0 MODERATE RISK >11.0 HIGH RISK Performed By: #### T SH, CMP, LIPID, T7, URIC #### [facility] [address] [place] [address] Dr. Shabnam Rae Cholesterol [Mass/Vol] 176 mg/dL Normal <=200 [facility] Comment on above: Performed By: #### T SH, CMP, LIPID, T7, URIC #### [facility] [address] [address] [address] Shabnam Rae Cholesterol in HDL [Mass/Vol] 48 mg/dL Normal 40-60 [facility] Comment on above: Performed By: #### T SH, CMP, LIPID, T7, URIC #### [facility] [address] [place] [address] Dr. Shabnam Rae Cholesterol in LDL [Mass/Vol] 108.2 mg/dL Normal [facility] Comment on above: Performed By: #### T SH, CMP, LIPID, T7, URIC #### [facility] [address] [address] [address] Shabnam Rae Cholesterol.total/Ch olesterol in HDL [Mass ratio] 3.7 {ratio} Normal [facility] Comment on above: Performed By: #### T SH, CMP, LIPID, T7, URIC #### [facility] [address] [address] [address] Shabnam Rae HDL NORMAL > or = 60 mg/dl - LO W CARDIOVASCULAR RISK <40 mg/dl - HIGH CARDIOVASCULAR RISK Normal [facility] Comment on above: Performed By: #### T SH, CMP, LIPID, T7, URIC #### [facility] [address] [place] [address] Dr. Shabnam Rae LDL CALC NORMAL SEE BELOW Normal [facility] Comment on above: Result Comment: <100 mg/dl OPTIMAL 100 - 129 mg/dl NEAR OR ABOVE OPTIMAL 130 - 159 mg/dl BORDERLINE HIGH 160 - 189 mg/dl HIGH >190 mg/dl VERY HIGH Performed By: #### T SH, CMP, LIPID, T7, URIC #### [facility] [address] [address] [address] Shabnam Rae Triglyceride [Mass/Vol] 99 mg/dL Normal <=150 [facility] Comment on above: Performed By: #### T SH, CMP, LIPID, T7, URIC #### [facility] [address] [address] [address] Shabnam Rae VLDL CALC 19.8 mg/dL Normal [facility] Comment on above: Performed By: #### T SH, CMP, LIPID, T7, URIC #### [facility] [address] [address] [address] Shabnam Rae PROF 14(COMP METB)on 023 Albumin [Mass/Vol] 4.1 g/dL Normal 3.4-5.0 [facility] Comment on above: Performed By: #### T SH, CMP, LIPID, T7, URIC #### [facility] [address] [place] [address] Dr. Shabnam Rae Albumin/Globulin [Mass ratio] 1.1 {ratio} Normal [facility] Comment on above: Performed By: #### T SH, CMP, LIPID, T7, URIC #### [facility] [address] [place] [address] Dr. Shabnam Rae ALP [Catalytic activity/Vol] 101 U/L Normal 46-116 [facility] Comment on above: Performed By: #### T SH, CMP, LIPID, T7, URIC #### [facility] [address] [place] [address] Dr. Shabnam Rae ALT [Catalytic activity/Vol] 26 U/L Normal 16-63 [facility] Comment on above: Performed By: #### T SH, CMP, LIPID, T7, URIC #### [facility] [address] [place] [address] Dr. Shabnam Rae Anion gap [Moles/Vol] 10.1 mmol/L Normal [facility] Comment on above: Performed By: #### T SH, CMP, LIPID, T7, URIC #### [facility] [address] [address] [address] Shabnam Rae AST [Catalytic activity/Vol] 19 U/L Normal 15-37 [facility] Comment on above: Performed By: #### T SH, CMP, LIPID, T7, URIC #### [facility] [address] [address] [address] Shabnam Rae Bilirubin [Mass/Vol] 0.8 mg/dL Normal 0.2-1.0 [facility] Comment on above: Performed By: #### T SH, CMP, LIPID, T7, URIC #### [facility] [address] [address] [address] Shabnam Rae Calcium [Mass/Vol] 9.5 mg/dL Normal 8.5-10.1 [facility] Comment on above: Performed By: #### T SH, CMP, LIPID, T7, URIC #### [facility] [address] [place] [address] Dr. Shabnam Rae Chloride [Moles/Vol] 102 mmol/L Normal 98-107 [facility] Comment on above: Performed By: #### T SH, CMP, LIPID, T7, URIC #### [facility] [address] [address] [address] Shabnam Rae CO2 [Moles/Vol] 32.4 mmol/L Critically high 21.0-32.0 [facility] Comment on above: Performed By: #### T SH, CMP, LIPID, T7, URIC #### [facility] [address] [place] [address] Dr. Shabnam Rae Creatinine [Mass/Vol] 1.00 mg/dL Normal 0.70-1.30 [facility] Comment on above: Performed By: #### T SH, CMP, LIPID, T7, URIC #### [facility] [address] [place] [address] Dr. Shabnam Rae EGFR-AF [place] >60 Normal >=60 [facility] Comment on above: Performed By: #### T SH, CMP, LIPID, T7, URIC #### [facility] [address] [place] [address] Dr. Shabnam Rae EGFR-NON AF [place] >60 Normal >=60 [facility] Comment on above: Performed By: #### T SH, CMP, LIPID, T7, URIC #### [facility] [address] [address] [address] Shabnam Rae Globulin (S) [Mass/Vol] 3.8 g/dL Normal [facility] Comment on above: Performed By: #### T SH, CMP, LIPID, T7, URIC #### [facility] [address] [address] [address] Shabnam Rae Glucose [Mass/Vol] 94 mg/dL Normal 74-106 [facility] Comment on above: Performed By: #### T SH, CMP, LIPID, T7, URIC #### [facility] [address] [place] [address] Dr. Shabnam Rae Potassium [Moles/Vol] 3.5 mmol/L Normal 3.5-5.1 [facility] Comment on above: Performed By: #### T SH, CMP, LIPID, T7, URIC #### [facility] [address] [place] [address] Dr. Shabnam Rae Protein [Mass/Vol] 7.9 g/dL Normal 6.4-8.2 [facility] Comment on above: Performed By: #### T SH, CMP, LIPID, T7, URIC #### [facility] [address] [place] [address] Dr. Shabnam Rae Sodium [Moles/Vol] 141 mmol/L Normal 136-145 [facility] Comment on above: Performed By: #### T SH, CMP, LIPID, T7, URIC #### [facility] [address] [place] [address] Dr. Shabnam Rae Urea nitrogen [Mass/Vol] 15.0 mg/dL Normal 7.0-18.0 [facility] Comment on above: Performed By: #### T SH, CMP, LIPID, T7, URIC #### [facility] [address] [place] [address] Dr. Shabnam Rae Urea nitrogen/Creatinine [Mass ratio] 15.0 mg/mg Normal [facility] Comment on above: Performed By: #### T SH, CMP, LIPID, T7, URIC #### [facility] [address] [address] [address] Shabnam Rae TSHon 12-01-2022 TSH 1.504 uIU/mL Normal 0.358-3.740 [facility] Comment on above: Performed By: #### T SH, CMP, LIPID, T7, URIC #### [facility] [address] [address] [address] Shabnam Rae URIC ACID SERUMon 12-01-2022 Urate [Mass/Vol] 6.9 mg/dL Normal 3.5-7.2 [facility] Comment on above: Performed By: #### T SH, CMP, LIPID, T7, URIC #### [facility] [address] [place] [address] Dr. Shabnam Rae TESTOSTERONE, TOTALon 2021 Testosterone [Mass/Vol] 244 ng/dL Critically low 264-916 [facility] Comment on above: Result Comment: Adul t male reference interval is based on a population of healthy nonobese males (BMI <30) between 19 and 39 years old. Travison, et.al. JCEM 2017,102;9278-4339. PMID: 59484790. Performed By: #### P SAFREE #### [facility] [address] [place] [address] Dr. Shabnam Rae TESTOSTERONE, FREE,DIRECT, T OTALon 03-16-2022 Free Testosterone(Direct) 2.1 pg/mL Critically low 7.2-24.0 [facility] Comment on above: Result Comment: Perf ormed at: BN Performed By: #### C VDTBH #### [facility] [address] [place] [address] Dr. Shabnam Rae Testosterone [Mass/Vol] 252 ng/dL Critically low 264-916 [facility] Comment on above: Result Comment: Adul t male reference interval is based on a population of healthy nonobese males (BMI <30) between 19 and 39 years old. Travison, et.al. JCEM 2017,102;1584-1129. PMID: [id number]. Performed at: CB Performed By: #### C [facility] #### [facility] [id number] Shabnam Rae Formson 02-26-2022 Forms [id number]. 00CD:127 Normal [facility] Screenson 02-26-2022 Screens [id number]#1. 00CD:127 Normal [facility] Screens [id number]#1.0 0CD:127 Normal [facility] Urology Office/Clinic Noteon 02-26-2022 Urology Office/Clinic [...] qualifying data (more content not included)... Normal [facility] Comment on above: Result Comment: Elec tronically Signed By: Viola Grullon MD\.br\Date and Time Signed: 02/26/22 00:20 EDT\.br\Electronically Co-Signed By: Helen Leung\.br\Date and Time Co-Signed: 02/25/22 11:16 EDT Ambulatory Visit Summaryon 0 02-25-2022 Ambulatory Visit Summary MATTY GARCES :1970 Visit Date:02/25/2022 Ambulatory Visit Instructions Your Diagnosis Hydrocele Varicocele BPH without urinary obstruction Tests Performed Urnls Dip Stick Auto w/o Microscopy POC 35179 Your Care Team Attending Physician - Viola [...] Urnls Dip Stick Auto w/o Microscopy POC 66700 (02/25/2022) Bilirubin Urine Dipstick - Negative Blood Urine Dipstick - Negative Glucose Urine Dipstick - Negative Ketones Urine Dipstick - Negative Leukocytes Urine Dipstick - Negative Nitrite Urine Dipstick - Negative Protein Urine Dipstick - Negative Specific [place] Urine Dipstick - >=1.030 Urine Appearance Urine [...] the hydrocele for any changes. ? Take bqjo-bfa-nsxooxv and prescription medicines only as told by [...] intended t (more content not included)... Normal [facility] Patient Educationon 02-26-20 Patient Education Urology [...] the hydrocele for any changes. ? Take ybnq-rgt-kbivxbc and prescription medicines only as told by [...] 02/17/2011 Document Revised: 09/10/2018 Document Reviewed: 09/10/2018 [employer] Patient Education ? 2019 [employer] [facility] ED Note-Physicianon 02-04-20 ED Note-Physician [id number] .00CD:127 [facility] RAD - Ultrasound Reporton RAD - Ultrasound Report [id number] 0CD:127 [facility] RAD - CT Reporton 02-02-2022 RAD - CT Report [id number] .00CD:127 Normal [facility] RAD - CT Report [id number] .00CD:127 Normal [facility] CBC AUTO DIFFon 01-05-2022 BASO # 0.0 103/ul Normal 0.0-0.1 [facility] Comment on above: Performed By: #### P SAFREE #### [facility] [address] [address] [address] Shabnam Rae Basophils/100 WBC (Bld) 0.6 % Normal 0.2-2.0 [facility] Comment on above: Performed By: #### P SAFREE #### [facility] [address] [place] [address] Dr. Shabnam Rae EO # 0.1 103/ul Normal 0.0-0.7 [facility] Comment on above: Performed By: #### P SAFREE #### [facility] [address] [address] [address] Shabnam Rae Eosinophils/100 WBC (Bld) 2.1 % Normal 0.9-7.0 [facility] Comment on above: Performed By: #### P SAFREE #### [facility] [address] [address] [address] Shabnam Rae Erythrocyte distribution width (RBC) [Ratio] 13.1 % Normal 11.0-15.0 [facility] Comment on above: Performed By: #### P SAFREE #### [facility] [address] [place] [address] Dr. Shabnam Rae Hematocrit (Bld) [Volume fraction] 43.1 % Normal 42.0-54.0 [facility] Comment on above: Performed By: #### P SAFREE #### [facility] [address] [place] [address] Dr. Shabnam Rae Hemoglobin (Bld) [Mass/Vol] 13.7 g/dL Critically low 14.0-18.0 [facility] Comment on above: Performed By: #### P SAFREE #### [facility] [address] [address] [address] Shabnam Rae IG # 0.04 10e3/ul Critically high 0.00-0.03 [facility] Comment on above: Performed By: #### P SAFREE #### [facility] [address] [address] [address] Shabnam Rae IG % 0.6 % Critically high 0.0-0.5 [facility] Comment on above: Performed By: #### P SAFREE #### [facility] [address] [address] [address] Shabnam Rae LYMPH # 0.9 103/ul Critically low 1.2-3.8 [facility] Comment on above: Performed By: #### P SAFREE #### [facility] [address] [place] [address] Dr. Shabnam Rae Lymphocytes/100 WBC (Bld) 13.1 % Critically low 20.5-60.0 [facility] Comment on above: Performed By: #### P SAFREE #### [facility] [address] [address] [address] Shabnam Rae MANUAL DIFF REQ NO Normal [facility] Comment on above: Performed By: #### P SAFREE #### [facility] [address] [address] [address] Shabnam Rae MCH (RBC) [Entitic mass] 29.5 pg Normal 25.9-34.0 [facility] Comment on above: Performed By: #### P SAFREE #### [facility] [address] [address] [address] Shabnam Rae MCHC (RBC) [Mass/Vol] 31.8 g/dL Normal 29.9-35.2 [facility] Comment on above: Performed By: #### P SAFREE #### [facility] [address] [place] [address] Dr. Shabnam Rae MCV (RBC) [Entitic vol] 92.9 fL Normal 80.0-94.0 [facility] Comment on above: Performed By: #### P SAFREE #### [facility] [address] [address] [address] Shabnam Rae MONO # 0.4 103/ul Normal 0.3-0.8 [facility] Comment on above: Performed By: #### P SAFREE #### [facility] [address] [address] [address] Shabnam Rae Monocytes/100 WBC (Bld) 5.4 % Normal 1.7-12.0 [facility] Comment on above: Performed By: #### P SAFREE #### [facility] [address] [address] [address] Shabnam Rae NEUT # 5.2 103/ul Normal 1.4-6.5 [facility] Comment on above: Performed By: #### P SAFREE #### [facility] [address] [address] [address] Shabnam Rae Neutrophils/100 WBC (Bld) 78.2 % Critically high 43.0-75.0 [facility] Comment on above: Performed By: #### P SAFREE #### [facility] [address] [address] [address] Shabnam Rae Platelet mean volume (Bld) [Entitic vol] 10.9 fL Normal 9.5-13.5 [facility] Comment on above: Performed By: #### P SAFREE #### [facility] [address] [address] [address] Shabnam Rae PLT 153 103/ul Normal 150-450 [facility] Comment on above: Performed By: #### P SAFREE #### [facility] [address] [address] [address] Shabnam Rae RBC 4.64 106/ul Critically low 4.70-6.10 [facility] Comment on above: Performed By: #### P SAFREE #### [facility] [address] [address] [address] Shabnam Rae WBC 6.6 103/ul Normal 4.0-11.0 [facility] Comment on above: Performed By: #### P SAFREE #### [facility] [address] [place] [address] Dr. Shabnam Rae CRPon 01-05-2022 CRP 0.9 mg/dL Normal <=1.0 [facility] Comment on above: Performed By: #### P SAFREE #### [facility] [address] [place] [address] Dr. Shabnam Rae PROF 14(COMP METB)on 022 Albumin [Mass/Vol] 3.6 g/dL Normal 3.4-5.0 [facility] Comment on above: Performed By: #### P SAFREE #### [facility] [address] [place] [address] Dr. Shabnam Rae Albumin/Globulin [Mass ratio] 1.0 {ratio} Normal [facility] Comment on above: Performed By: #### P SAFREE #### [facility] [address] [place] [address] Dr. Shabnam Rae ALP [Catalytic activity/Vol] 114 U/L Normal 46-116 [facility] Comment on above: Performed By: #### P SAFREE #### [facility] [address] [place] [address] Dr. Shabnam Rae ALT [Catalytic activity/Vol] 26 U/L Normal 16-63 [facility] Comment on above: Performed By: #### P SAFREE #### [facility] [address] [place] [address] Dr. Shabnam Rae Anion gap [Moles/Vol] 9.3 mmol/L Normal [facility] Comment on above: Performed By: #### P SAFREE #### [facility] [address] [place] [address] Dr. Shabnam Rae AST [Catalytic activity/Vol] 19 U/L Normal 15-37 [facility] Comment on above: Performed By: #### P SAFREE #### [facility] [address] [place] [address] Dr. Shabnam Rae Bilirubin [Mass/Vol] 0.5 mg/dL Normal 0.2-1.0 [facility] Comment on above: Performed By: #### P SAFREE #### [facility] [address] [address] [address] Shabnam Rae Calcium [Mass/Vol] 8.9 mg/dL Normal 8.5-10.1 [facility] Comment on above: Performed By: #### P SAFREE #### [facility] [address] [address] [address] Shabnam Rae Chloride [Moles/Vol] 106 mmol/L Normal 98-107 [facility] Comment on above: Performed By: #### P SAFREE #### [facility] [address] [address] [address] Shabnam Rae CO2 [Moles/Vol] 30.7 mmol/L Normal 21.0-32.0 [facility] Comment on above: Performed By: #### P SAFREE #### [facility] [address] [address] [address] Shabnam Rae Creatinine [Mass/Vol] 1.15 mg/dL Normal 0.70-1.30 [facility] Comment on above: Performed By: #### P SAFREE #### [facility] [address] [address] [address] Shabnam Rae EGFR-AF [place] >60 Normal >=60 [facility] Comment on above: Performed By: #### P SAFREE #### [facility] [address] [address] [address] Shabnam Rae EGFR-NON AF [place] >60 Normal >=60 [facility] Comment on above: Performed By: #### P SAFREE #### [facility] [address] [address] [address] Shabnam Rae Globulin (S) [Mass/Vol] 3.6 g/dL Normal [facility] Comment on above: Performed By: #### P SAFREE #### [facility] [address] [address] [address] Shabnam Rae Glucose [Mass/Vol] 117 mg/dL Critically high 74-106 [facility] Comment on above: Performed By: #### P SAFREE #### [facility] [address] [address] [address] Shabnam Rae Potassium [Moles/Vol] 4.0 mmol/L Normal 3.5-5.1 [facility] Comment on above: Performed By: #### P SAFREE #### [facility] [address] [address] [address] Shabnam Rae Protein [Mass/Vol] 7.2 g/dL Normal 6.1-8.2 [facility] Comment on above: Performed By: #### P SAFREE #### [facility] [address] [address] [address] Shabnam Rae Sodium [Moles/Vol] 142 mmol/L Normal 136-145 [facility] Comment on above: Performed By: #### P SAFREE #### [facility] [address] [address] [address] Shabnam Rae Urea nitrogen [Mass/Vol] 15.0 mg/dL Normal 7.0-18.0 [facility] Comment on above: Performed By: #### P SAFREE #### [facility] [address] [address] [address] Shabnam Rae Urea nitrogen/Creatinine [Mass ratio] 13.0 mg/mg Normal [facility] Comment on above: Performed By: #### P SAFREE #### [facility] [address] [place] [address] Dr. Shabnam Rae US SCROTUMon 01-05-2022 US [...] Date: 2022-01-05 08:48 Normal [facility] CBC AUTO DIFFon 01-04-2022 BASO # 0.1 103/ul Normal 0.0-0.1 [facility] Comment on above: Performed By: #### C BC #### [facility] [address] [place] [address] Dr. Shabnam Rae Basophils/100 WBC (Bld) 0.8 % Normal 0.2-2.0 [facility] Comment on above: Performed By: #### C BC #### [facility] [address] [place] [address] Dr. Shabnam Rae EO # 0.1 103/ul Normal 0.0-0.7 [facility] Comment on above: Performed By: #### C BC #### [facility] [address] [place] [address] Dr. Shabnam Rae Eosinophils/100 WBC (Bld) 1.5 % Normal 0.9-7.0 [facility] Comment on above: Performed By: #### C BC #### [facility] [address] [place] [address] Dr. Shabnam Rae Erythrocyte distribution width (RBC) [Ratio] 12.8 % Normal 11.0-15.0 [facility] Comment on above: Performed By: #### C BC #### [facility] [address] [place] [address] Dr. Shabnam Rae Hematocrit (Bld) [Volume fraction] 40.3 % Critically low 42.0-54.0 [facility] Comment on above: Performed By: #### C BC #### [facility] [address] [place] [address] Dr. Shabnam Rae Hemoglobin (Bld) [Mass/Vol] 13.4 g/dL Critically low 14.0-18.0 [facility] Comment on above: Performed By: #### C BC #### [facility] [address] [place] [address] Dr. Shabnam Rae IG # 0.03 10e3/ul Normal 0.00-0.03 [facility] Comment on above: Performed By: #### C BC #### [facility] [address] [place] [address] Dr. Shabnam Rae IG % 0.5 % Normal 0.0-0.5 [facility] Comment on above: Performed By: #### C BC #### [facility] [address] [place] [address] Dr. Shabnam Rae LYMPH # 1.0 103/ul Critically low 1.2-3.8 [facility] Comment on above: Performed By: #### C BC #### [facility] [address] [place] [address] Dr. Shabnam Rae Lymphocytes/100 WBC (Bld) 16.4 % Critically low 20.5-60.0 [facility] Comment on above: Performed By: #### C BC #### [facility] [address] [place] [address] Dr. Shabnam Rae MANUAL DIFF REQ NO Normal [facility] Comment on above: Performed By: #### C BC #### [facility] [address] [place] [address] Dr. Shabnam Rae MCH (RBC) [Entitic mass] 29.5 pg Normal 25.9-34.0 [facility] Comment on above: Performed By: #### C BC #### [facility] [address] [place] [address] Dr. Shabnam Rae MCHC (RBC) [Mass/Vol] 33.3 g/dL Normal 29.9-35.2 [facility] Comment on above: Performed By: #### C BC #### [facility] [address] [address] [address] Shabnam Rae MCV (RBC) [Entitic vol] 88.8 fL Normal 80.0-94.0 [facility] Comment on above: Performed By: #### C BC #### [facility] [id number] Shabnam Rae MONO # 0.6 103/ul Normal 0.3-0.8 [facility] Comment on above: Performed By: #### C BC #### [facility] [address] [address] [address] Shabnam Rae Monocytes/100 WBC (Bld) 9.6 % Normal 1.7-12.0 [facility] Comment on above: Performed By: #### C BC #### [facility] [address] [address] [address] Shabnam aRe NEUT # 4.4 103/ul Normal 1.4-6.5 [facility] Comment on above: Performed By: #### C BC #### [facility] [address] [address] [address] Shabnam Rae Neutrophils/100 WBC (Bld) 71.2 % Normal 43.0-75.0 [facility] Comment on above: Performed By: #### C BC #### [facility] [address] [address] [address] Shabnam Rae Platelet mean volume (Bld) [Entitic vol] 10.8 fL Normal 9.5-13.5 [facility] Comment on above: Performed By: #### C BC #### [facility] [address] [address] [address] Shabnam Rae PLT 158 103/ul Normal 150-450 [facility] Comment on above: Performed By: #### C BC #### [facility] [id number] Shabnam Rae RBC 4.54 106/ul Critically low 4.70-6.10 [facility] Comment on above: Performed By: #### C BC #### [facility] [id number] Shabnam Rae WBC 6.2 103/ul Normal 4.0-11.0 [facility] Comment on above: Performed By: #### C #### [facility] [address] [place] [address] ABD/PELV W CONon [...] Date: 2022-01-04 05:19 Normal [facility] CT PELVIS WO CONon 2 CT [...] with scrotal ultrasound recommended. Electronically authenticated by: [facility] Date: 2022-01-04 08:54 Normal [facility] CULTURE URINEon 01-04-2022 CULTURE URINE Culture Observations : No growth Normal [facility] Comment on above: Performed By: #### P [facility] #### [facility] [address] [place] [address] Dr. Shabnam Rae [facility]-13 SARS-CoV-2 (COVID-19) RNA ELIJAH+probe Ql (Unsp spec) Not detected Normal NOT DETECTED [facility] Comment on above: Result Comment: When diagnostic testing is negative, the possibility of a false negative should be considered in the context of a patient's recent exposures and the presence of clinical signs and symptoms consistent with SARS-CoV-2. This test is not yet approved or cleared by the [place] Food and Drug Administration (FDA). This test was developed by [employer], [place], [place]. The performance characteristics of this test were validated by [facility]. The results are not intended to be used as the sole means for clinical diagnosis or patient management decisions. The [facility] is authorized under Clinical Laboratory Improvement [...] for this test is supported by the [employer] Worker of Health and Human Service's declaration that [...] By: #### C VDTBH #### [facility] [address] [place] [address] Dr. Shabnam Rae ER URINE PROFILEon 2 Bilirubin Ql (U) Negative Normal NEGATIVE [facility] Comment on above: Performed By: #### P SASC #### [facility] [address] [place] [address] Dr. Shabnam Rae Clarity (U) CLEAR Normal CLEAR [facility] Comment on above: Performed By: #### P SASC #### [facility] [address] [place] [address] Dr. Shabnam Rae Color (U) YELLOW Normal YELLOW [facility] Comment on above: Performed By: #### P SASC #### [facility] [address] [place] [address] Dr. Shabnam Rae ERUAHD A micrscopic examination will be performed if indicated. Normal [facility] Comment on above: Performed By: #### P SASC #### [facility] [address] [address] [address] Shabnam Rae Glucose Ql (U) Negative Normal NEGATIVE [facility] Comment on above: Performed By: #### P SASC #### [facility] [address] [address] [address] Shabnam Rae Hemoglobin Ql (U) Negative Normal NEGATIVE [facility] Comment on above: Performed By: #### P SASC #### [facility] [address] [address] [address] Shabnam Rae Ketones Ql (U) Negative Normal NEGATIVE [facility] Comment on above: Performed By: #### P SASC #### [facility] [address] [place] [address] Dr. Shabnam Rae LEUKOCYTES Negative Normal NEGATIVE [facility] Comment on above: Performed By: #### P SASC #### [facility] [address] [address] [address] Shabnam Rae Nitrite Ql (U) Negative Normal NEGATIVE [facility] Comment on above: Performed By: #### P SASC #### [facility] [address] [address] [address] Shabnam Rae pH (U) 6.5 [pH] Normal 5-9 [facility] Comment on above: Performed By: #### P SASC #### [facility] [address] [address] [address] Shabnam Rae SPEC GRAVITY 1.010 Normal 1.005-<=1.025 [facility] Comment on above: Performed By: #### P SASC #### [facility] [address] [address] [address] Shabnam Rae UA PROTEIN Negative Normal NEGATIVE/ TRACE [facility] Comment on above: Performed By: #### P SASC #### [facility] [address] [place] [address] Dr. Shabnam Rae UR MICRO IND NOT INDICATED Normal [facility] Comment on above: Performed By: #### P SASC #### [facility] [address] [place] [address] Dr. Shabnam Rae Urobilinogen Qn (U) 0.2 {Sarai'U}/dL Normal 0.2 - 1. 0 [facility] Comment on above: Performed By: #### P SASC #### [facility] [address] [place] [address] Dr. Shabnam Rae LACTATE/LACTIC ACIDon 2021 Lactate [Moles/Vol] 1.0 mmol/L Normal 0.4-2.0 [facility] Comment on above: Performed By: #### P SASC #### [facility] [address] [place] [address] Dr. Shabnam Rae PROF CHEM 8 (BAS METB)on Anion gap [Moles/Vol] 10.0 mmol/L Normal [facility] Comment on above: Performed By: #### B MP #### [facility] [address] [place] [address] Dr. Shabnam Rae Calcium [Mass/Vol] 8.5 mg/dL Normal 8.5-10.1 [facility] Comment on above: Performed By: #### B MP #### [facility] [address] [place] [address] Dr. Shabnam Rae Chloride [Moles/Vol] 103 mmol/L Normal 98-107 [facility] Comment on above: Performed By: #### B MP #### [facility] [address] [place] [address] Dr. Shabnam Rae CO2 [Moles/Vol] 29.2 mmol/L Normal 21.0-32.[address] [facility] Comment on above: Performed By: #### B MP #### [facility] [address] [place] [address] Dr. Shabnam Rae Creatinine [Mass/Vol] 1.25 mg/dL Normal 0.70-1.30 [facility] Comment on above: Performed By: #### B MP #### [facility] [address] [place] [address] Dr. Shabnam Rae EGFR-AF [place] >60 Normal >=60 [facility] Comment on above: Performed By: #### B MP #### [facility] [address] [address] [address] Shabnam Rae EGFR-NON AF [place] >60 Normal >=60 [facility] Comment on above: Performed By: #### B MP #### [facility] [address] [address] [address] Shabnam Rae Glucose [Mass/Vol] 132 mg/dL Critically high 74-106 [facility] Comment on above: Performed By: #### B MP #### [facility] [address] [address] [address] Shabnam Rae Potassium [Moles/Vol] 3.2 mmol/L Critically low 3.5-5.1 [facility] Comment on above: Performed By: #### B MP #### [facility] [address] [address] [address] Shabnam Rae Sodium [Moles/Vol] 139 mmol/L Normal 136-145 [facility] Comment on above: Performed By: #### B MP #### [facility] [address] [address] [address] Shabnam Rae Urea nitrogen [Mass/Vol] 19.0 mg/dL Critically high 7.0-18.0 [facility] Comment on above: Performed By: #### B MP #### [facility] [address] [address] [address] Shabnam Rae Urea nitrogen/Creatinine [Mass ratio] 15.2 mg/mg Normal [facility] Comment on above: Performed By: #### B MP #### [facility] [address] [address] [address] Shabnam Rae CERVICAL SPINE 2 OR 3 [facility] 07-06-2019 CERVICAL SPINE 2 OR 3 [facility] Department of Radiology [address] [place] [phone] ======== Patient Name: MATTY GARCES : 1970 Sex: M Age: Race: White Pt. Location: Patient Status: O Ordered Date: 07/06/2019 9:10:00 AM Completed Date: 07/06/2019 09:21 AM Requesting Provider: LUCIANO DAVIS Attending Provider: LUCIANO DAVIS Report Copy To: VENUS JAEGER Signs & Symptoms: M48.02 Spinal stenosis, cervical region I10 History: Gilbert Comments: , STAT READ , STAT READ [...] findings. Electronically signed by:Bernice Hoyt. Transcribed by: [email or web address], User Resident: RADHA CHIN Electronically Signed by: BERNICE HOYT @ 07/06/2019 08:52 PM I personally read this/these film(s) with this resident Normal [facility] Comment on above: Order Comment: , STA T READ , STAT READ , , , Ordering Provider - LUCIANO DAVIS MD , CERVICAL SPINE 2 OR 3 [facility] 04-06-2019 CERVICAL SPINE 2 OR 3 [facility] Department of Radiology [address] [place] [phone] ======== Patient Name: MATTY GARCES : [...] FALLS Exam: CERVICAL SPINE 2 OR 3 [facility] ======== CERVICAL SPINE 2 OR [...] study. Electronically signed by:Bernice Hoyt. Transcribed by: [email or web address], User Resident: Electronically Signed by: BERNICE HOYT @ 04/06/2019 04:40 PM Normal [facility] Comment on above: Order Comment: AP/LA T, ODONTOID PLEASE DO SWIMMER'S VIEW FOLLOW UP HARDWARE AND ALIGNMENT, S/P ACDF, RECENT FALLS CERVICAL SPINE 2 OR 3 [facility] 02-17-2019 CERVICAL SPINE 2 OR 3 [facility] Department of Radiology [address] [place] [phone] ======== Patient Name: MATTY GARCES : [...] findings. Electronically signed by:Bella King. Transcribed by: [email or web address], User Resident: KENNETH DUVAL Electronically Signed by: BELLA KING @ 02/20/2019 11:53 AM I personally read this/these film(s) with this resident Normal [facility] Comment on above: Order Comment: C-SPI NE 2 OR 3 VIEW POSTOP, EVALUATION HARDWARE AN ALIGNMENT BASIC METABOLIC PANELon 05-2 Calcium [Mass/Vol] 9.2 mg/dL Normal 8.6-10.3 [facility] Comment on above: Order Comment: No: D o not add to previous draw Performed By: #### 5 0103 #### [facility] [address] [place] [address], [place] Chloride [Moles/Vol] 101 mmol/L Normal 98-107 [facility] Comment on above: Order Comment: No: D o not add to previous draw Performed By: #### 5 0103 #### [facility] [address] [place] [address], [place] CO2 [Moles/Vol] 26 mmol/L Normal 21-31 [facility] Comment on above: Order Comment: No: D o not add to previous draw Performed By: #### 5 0103 #### [facility] [address] [place] [address], [place] Creatinine [Mass/Vol] 1.02 mg/dL Normal 0.70-1.30 [facility] Comment on above: Order Comment: No: D o not add to previous draw Performed By: #### 5 0103 #### [facility] [address] [place] [address], [place] GFR/1.73 sq M predicted among blacks MDRD (S/P/Bld) [Vol rate/Area] mL/min/{1.73_m2} Normal >60 [facility] Comment on above: Order Comment: No: D o not add to previous draw Performed By: #### 5 0103 #### [facility] [address] [place] [address], [place] GFR/1.73 sq M predicted among non-blacks MDRD (S/P/Bld) [Vol rate/Area] mL/min/{1.73_m2} Normal >60 [facility] Comment on above: Order Comment: No: D o not add to previous draw Performed By: #### 5 0103 #### [facility] [address] [place] [address], [facility] Glucose [Mass/Vol] 124 mg/dL High 70-100 [facility] Comment on above: Order Comment: No: D o not add to previous draw Performed By: #### 5 0103 #### [facility] [address] [place] [address], [facility] Potassium [Moles/Vol] 3.9 mmol/L Normal 3.5-5.1 [facility] Comment on above: Order Comment: No: D o not add to previous draw Performed By: #### 5 0103 #### [facility] [address] [place] [address], [facility] Sodium [Moles/Vol] 137 mmol/L Normal 136-145 [facility] Comment on above: Order Comment: No: D o not add to previous draw Performed By: #### 5 0103 #### [facility] [address] [place] [address], [facility] Urea nitrogen [Mass/Vol] 15 mg/dL Normal 7-25 [facility] Comment on above: Order Comment: No: D o not add to previous draw Performed By: #### 5 0103 #### [facility] [address] [place] [address], [facility] CBC COMPLETE BLOOD COUNTon 0 - Erythrocyte distribution width (RBC) [Ratio] 13.9 % Normal 11.5-15.0 [facility] Comment on above: Order Comment: No: D o not add to previous draw Performed By: #### 5 0103 #### [facility] [address] [place] [address], [facility] Hematocrit (Bld) [Volume fraction] 50.0 % Normal 39.0-50.0 [facility] Comment on above: Order Comment: No: D o not add to previous draw Performed By: #### 5 0103 #### [facility] [address] [place] [address], [facility] Hemoglobin (Bld) [Mass/Vol] 16.0 g/dL Normal 13.0-17.0 [facility] Comment on above: Order Comment: No: D o not add to previous draw Performed By: #### 5 0103 #### [facility] [address] [place] [address], [facility] MCH (RBC) [Entitic mass] 27.5 pg Normal 27.0-33.0 [facility] Comment on above: Order Comment: No: D o not add to previous draw Performed By: #### 5 0103 #### [facility] [address] [place] [address], [facility] MCHC (RBC) [Mass/Vol] 32.0 g/dL Normal 32.0-35.0 [facility] Comment on above: Order Comment: No: D o not add to previous draw Performed By: #### 5 0103 #### [facility] [address] [place] [address], [facility] MCV (RBC) [Entitic vol] 85.9 fL Normal 82.0-98.0 [facility] Comment on above: Order Comment: No: D o not add to previous draw Performed By: #### 5 0103 #### [facility] [address] [place] [address], [facility] Nucleated RBC/100 WBC (Bld) [Ratio] 0 % Normal 0-0 [facility] Comment on above: Order Comment: No: D o not add to previous draw Performed By: #### 5 0103 #### [facility] [address] [place] [id number], [facility] PLAT CNT 249 10*3/uL Normal 150-[address] [facility] Comment on above: Order Comment: No: D o not add to previous draw Performed By: #### 5 0103 #### [facility] [address] [place] [address], [facility] RBC (Bld) [#/Vol] 5.82 10*6/uL High 4.20-5.70 [facility] Comment on above: Order Comment: No: D o not add to previous draw Performed By: #### 5 0103 #### [facility] [address] [place] [id number], [facility] WBC (Bld) [#/Vol] 15.85 10*3/uL High 4.00-10.60 [facility] Comment on above: Order Comment: No: D o not add to previous draw Performed By: #### 5 0103 #### [facility] [address] Operative Reporton 9 Operative Report MR#: [id number] I [facility] Pt. Name: Matty Garces Room #: [id number] Discharge Date: Birthdate: 1970 OPERATIVE REPORT DATE OF SURGERY: 01/30/2019 SURGEON: Luciano Davis M.D. 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 POSTOPERATIVE DIAGNOSIS: Failed instrumentation at C6-7 on the right. PROFESSOR OF HISTORICAL THEOLOGY: ADENIKE Lugo. ANESTHESIA: Endotracheal, Hogan. PROCEDURES: Redo [...] Davis M.D. Date Trans: 01/31/2019 02:31 Mark DIXON_JN:[id number] cc: Venus Jaeger M.D. [address], [facility] [phone] [facility] CERVICAL SPINE 2 OR 3 [facility] 01-30-2019 CERVICAL SPINE 2 OR 3 [facility] Department of Radiology [address] [place] [address] ======== Patient Name: MATTY GARCES : 1970 Sex: M Age: Race: White Pt. Location: Patient Status: O Ordered Date: 01/30/2019 7:05:00 AM Completed Date: 01/30/2019 04:12 PM Requesting Provider: LUCIANO DAVIS Attending Provider: LUCIANO DAVIS Report Copy To: Signs & Symptoms: C6-7 ACDF History: C6-7 ACDF Comments: C6-7 ACDF Exam: CERVICAL SPINE 2 OR 3 [facility] ======== CERVICAL SPINE 2 OR 3 [facility] 01/30/2019 4:12 PM EDT SIGNS AND SYMPTOMS: C6-7 ACDF TECHNOLOGIST COMMENTS: Intra op ACDF C6-7 with , 30 sec of fluoro time used QUESTION FOR THE RADIOLOGIST: C6-7 ACDF PROTOCOLS: AP, Odontoid and Lateral views were obtained. COMPARISON: None FINDINGS: 5 images were obtained. Fluoroscopic time as utilized above. IMPRESSION: For documentation Electronically signed by:Justus Murphy. Transcribed by: [email or web address], User Resident: Electronically Signed by: JUSTUS MURPHY @ 01/30/2019 04:18 PM Normal [facility] Comment on above: Order Comment: C6-7 ACDF POC GLUCOSE LABon 01-30-2019 Glucose [Mass/Vol] 106 mg/dL High 70-100 [facility] Comment on above: Performed By: #### 5 0103 #### [facility] [address] [facility]. [address] *MRSA/MSSA DNA NASALon 01-23 *MRSA/MSSA DNA NASAL Clinical Report: (D ) Specimen: NASAL SWAB Collected: 01/23/2019 15:02 Status: Final Last Updated: 01/23/2019 20:14 MSSA DNA (Final) Methicillin Susceptible Staphylococcus aureus DNA Detected MRSA DNA (Final) No Methicillin Resistant Staphylococcus aureus DNA Detected Normal [facility] Comment on above: Performed By: #### 5 0103 #### [facility] [address] [facility]. [address] APTTon 01-23-2019 aPTT Coag (Bld) [Time] 35.4 s High 25.0-35.0 [facility] Comment on above: Result Comment: [...] THIS PURPOSE. Performed By: #### 5 7307, [id number] #### [facility] [address] [facility] [place] [address], [facility] BASIC METABOLIC PANELon 01-11 Calcium [Mass/Vol] 9.5 mg/dL Normal 8.6-10.3 The [facility] Comment on above: Performed By: #### 5 7307, 60528 #### [facility] [address] [facility] [place] [place] [address], [facility] Chloride [Moles/Vol] 101 mmol/L Normal 98-107 [facility] Comment on above: Performed By: #### 5 7307, 05503 #### [facility] [address] [facility] [place] [address], [facility] CO2 [Moles/Vol] 29 mmol/L Normal 21-31 The [facility] Comment on above: Performed By: #### 5 7307, 83709 #### [facility] [address] [place] [address], [place] Creatinine [Mass/Vol] 1.08 mg/dL Normal 0.70-1.30 [facility] Comment on above: Performed By: #### 5 7307, 04742 #### [facility] [address] [place] [address], [place] GFR/1.73 sq M predicted among blacks MDRD (S/P/Bld) [Vol rate/Area] mL/min/{1.73_m2} Normal >60 [facility] Comment on above: Performed By: #### 5 7306, 92176 #### [facility] [address] [place] [address], [place] GFR/1.73 sq M predicted among non-blacks MDRD (S/P/Bld) [Vol rate/Area] mL/min/{1.73_m2} Normal >60 [facility] Comment on above: Performed By: #### 5 7307, 15112 #### [facility] [address] [place] [address], [place] Glucose [Mass/Vol] 87 mg/dL Normal 70-100 [facility] Comment on above: Performed By: #### 5 7307, 00713 #### [facility] [address] [place] [address], [place] Potassium [Moles/Vol] 4.0 mmol/L Normal 3.5-5.1 [facility] Comment on above: Performed By: #### 5 7307, 60065 #### [facility] [address] [place] [address], [place] Sodium [Moles/Vol] 137 mmol/L Normal 136-145 [facility] Comment on above: Performed By: #### 5 7307, 56835 #### [facility] [address] [facility] [place] [address], [facility] Urea nitrogen [Mass/Vol] 12 mg/dL Normal 7-25 [facility] Comment on above: Performed By: #### 5 73, 37208 #### [facility] [address] [facility] [place] [address], [facility] CBC W/DIFFon 01-23-2019 ABS BASOPHILS 0.1 10*3/uL Normal 0.0-0.2 The [facility] Comment on above: Performed By: #### 5 Al, 19213 #### [facility] [address] [facility] [place] [address], [facility] ABS IMM GRANS 0.0 10*3/uL Normal 0.0-0.2 The [facility] Comment on above: Performed By: #### 5 73Al, 93151 #### [facility] [address] [facility] [place] [address], [facility] ABS NEUTROPHILS 5.3 10*3/uL Normal 1.6-7.6 The [facility] Comment on above: Performed By: #### 5 73Al, 02967 #### [facility] [address] [facility] [place] [address], [facility] Basophils/100 WBC (Bld) 0.9 % Normal 0.0-1.0 [facility] Comment on above: Performed By: #### 5 73Al, 34405 #### [facility] [address] [facility] [place] [address], [facility] Eosinophils (Bld) [#/Vol] 0.2 10*3/uL Normal 0.0-0.5 [facility] Comment on above: Performed By: #### 5 73, 25048 #### [facility] [address] [facility] [place] [place] [address], [facility] Eosinophils/100 WBC (Bld) 2.3 % Normal 0.0-6.0 [facility] Comment on above: Performed By: #### 5 7306, 46163 #### [facility] [address] Erythrocyte distribution width (RBC) [Ratio] 13.8 % Normal 11.5-15.0 [facility] Comment on above: Performed By: #### 5 7306, 35655 #### [facility] [address] [place] [address], [facility] Hematocrit (Bld) [Volume fraction] 49.6 % Normal 39.0-50.0 [facility] Comment on above: Performed By: #### 5 7306, 84845 #### [facility] [address] [facility] [address] Hemoglobin (Bld) [Mass/Vol] 16.4 g/dL Normal 13.0-17.0 [facility] Comment on above: Performed By: #### 5 7306, 90800 #### [facility] [address] [facility] [address] IMMATURE GRANS 0.5 % Normal 0.0-1.0 The [facility] Comment on above: Performed By: #### 5 7306, 86248 #### [facility] [address] [facility] [place] [place] [address], [facility] Lymphocytes (Bld) [#/Vol] 1.2 10*3/uL Normal 1.2-4.0 [facility] Comment on above: Performed By: #### 5 7306, 75783 #### [facility] [address] [facility] [place] [address], [facility] Lymphocytes/100 WBC (Bld) 16.6 % Low 20.0-45.0 [facility] Comment on above: Performed By: #### 5 7306, 56292 #### [facility] [address] [place] [address], [place] MCH (RBC) [Entitic mass] 27.8 pg Normal 27.0-33.0 [facility] Comment on above: Performed By: #### 5 7306, 51709 #### [facility] [address] [facility] [address] MCHC (RBC) [Mass/Vol] 33.1 g/dL Normal 32.0-35.0 [facility] Comment on above: Performed By: #### 5 7306, 54041 #### [facility] [address] [facility] [address] MCV (RBC) [Entitic vol] 84.2 fL Normal 82.0-98.0 [facility] Comment on above: Performed By: #### 5 7306, 61056 #### [facility] [address] [facility] [address] Monocytes (Bld) [#/Vol] 0.7 10*3/uL Normal 0.1-1.0 [facility] Comment on above: Performed By: #### 5 7306, 08567 #### [facility] [address] [facility]. [address] MONOS 9.4 % Normal 5.0-12.0 [facility] Comment on above: Performed By: #### 5 7306, 10022 #### [facility] [address] [facility]. [address] Neutrophils/100 WBC (Bld) 70.3 % Normal 40.0-72.0 [facility] Comment on above: Performed By: #### 5 7306, 11975 #### [facility] [address] [facility] [place] [address], [facility] Nucleated RBC/100 WBC (Bld) [Ratio] 0 % Normal 0-0 [facility] Comment on above: Performed By: #### 5 73, 28254 #### [facility] [address] [facility] [address] PLAT CNT 235 10*3/uL Normal 150-[address] [facility] Comment on above: Performed By: #### 5 7307, 42035 #### [facility] [address] [facility] [address] RBC (Bld) [#/Vol] 5.89 10*6/uL High 4.20-5.70 The [facility] Comment on above: Performed By: #### 5 7307, 01231 #### [facility] [address] [facility] [address] WBC (Bld) [#/Vol] 7.48 10*3/uL Normal 4.00-10.60 The [facility] Comment on above: Performed By: #### 5 7307, 66234 #### [facility] [address] PROTHROMBIN TIMEon 9 INR Coag (PPP) [Relative time] 1.12 {INR} Normal 0.91-1.16 [facility] Comment on above: Result Comment: ACCC [...] CHEST 1995;108:231S-246S. Performed By: #### 5 7307, 42307 #### [facility] [address] PT Coag (PPP) [Time] 14.4 s Normal 12.3-14.8 [facility] Comment on above: Result Comment: ALL RESULTS MUST BE INTERPRETED WITH RESPECT TO BLOOD DRAWING ARTIFACT OR DILUTION ERROR OF ANTICOAGULANT AT THE TIME OF SAMPLING. Performed By: #### 5 7307, 95009 #### [facility] [address] TYPE AND SCREENon 01-23-2019 ABO INTERPRETATION A Normal The [facility] Comment on above: Performed By: #### 5 7307, 55124 #### [facility] [address] [place] [address], [facility] RH INTERPRETATION Positive Normal The [facility] Comment on above: Performed By: #### 5 7307, 98308 #### [facility] [address] [facility] [address] 3D CERVICAL SPINE WO CONT RASTon 01-12-2019 CT 3D CERVICAL SPINE WO CONTRAST [facility] Department of Radiology [address] [place] [id number] ======== Patient Name: MATTY GARCES : 1970 Sex: M Age: Race: White Pt. Location: Patient Status: D Ordered Date: 01/10/2019 2:15:00 PM Completed Date: 01/12/2019 10:32 AM Requesting Provider: LUCIANO DAVIS Attending Provider: LUCIANO DAVIS Report Copy To: HOY, VENUS Signs & Symptoms: M48.02 Spinal stenosis, cervical region I10 History: Althea otto auth # [id number] 01/10/19-02/09/19 [id number] *er Comments: Exam: CT 3D CERVICAL SPINE [...] incomplete Electronically signed by:Ten Uriarte. Transcribed by: [email or web address], User Resident: Electronically Signed by: TEN Posadas GILL @ 01/13/2019 09:18 AM Normal [facility] CERVICAL SPINE 2 OR 3 Son 01-05-2019 CERVICAL SPINE 2 OR 3 [facility] Department of Radiology [address] [place] [id number] ======== Patient Name: MATTY GARCES : [...] , Exam: CERVICAL SPINE 2 OR 3 [facility] ======== CERVICAL SPINE 2 OR [...] findings. Electronically signed by:Ten Uriarte. Transcribed by: [email or web address], User Resident: SHELLY DELA CRUZ Electronically Signed by: TEN URIARTE @ 01/05/2019 12:37 PM I personally read this/these film(s) with this resident Normal [facility] Comment on above: Order Comment: , , = ========= , Ordering Provider - LUCIANO DAVIS MD , CERVICAL SPINE 2 OR 3 [facility] 08-30-2018 CERVICAL SPINE 2 OR 3 [facility] Department of Radiology [address] [place] [phone] ======== Patient Name: MATTY GARCES : 1970 Sex: M Age: Race: White Pt. Location: Patient Status: O Ordered Date: 08/30/2018 9:35:00 AM Completed Date: 08/30/2018 09:43 AM Requesting Provider: LUCIANO DAVIS Attending Provider: LUCIANO DAVIS Report Copy To: VENUS JAEGER Signs & Symptoms: M50.90 Cervical disc disorder, unsp, unspecified cervical region I10 History: [place] Comments: , POST OP XRAY AP/LAT ONLY [...] findings. Electronically signed by:Bella King. Transcribed by: [email or web address], User Resident: RYAN ANDERSON Electronically Signed by: BELLA KING @ 08/30/2018 05:45 PM I personally read this/these film(s) with this resident Normal [facility] Comment on above: Order Comment: , POS T OP XRAY AP/LAT ONLY , POST OP XRAY AP/LAT ONLY , , , Ordering Provider - LUCIANO DAVIS MD , Operative Reporton 8 Operative Report MR#: [id number] I [facility] Pt. Name: Matty Garces Room #: [id number] Discharge Date: Birthdate: 1970 OPERATIVE REPORT DATE OF SURGERY: 08/17/2018 SURGEON: Luciano Davis M.D. PREOPERATIVE DIAGNOSIS: Herniated cervical disk at C6-7. POSTOPERATIVE DIAGNOSIS: Herniated cervical disk at C6-7. PROFESSOR OF HISTORICAL THEOLOGY: ADENIKE Larios. ANESTHESIA: Endotracheal, Braida. PROCEDURE: Anterior [...] Davis M.D. Date Trans: 08/17/2018 11:25 P/sasha [id number] cc: Venus Jaeger M.D. [address] [place] [address] Normal [facility] CERVICAL SPINE 2 OR 3 [facility] 08-17-2018 CERVICAL SPINE 2 OR 3 [facility] Department of Radiology [address] [place] [phone] ======== Patient Name: MATTY GARCES : [...] findings. Electronically signed by:Bernice Hoyt. Transcribed by: [email or web address], User Resident: KENNETH DUVAL Electronically Signed by: BERNICE HOYT @ 08/18/2018 01:06 PM I personally read this/these film(s) with this resident Normal [facility] Comment on above: Order Comment: C6-7 ACDF with POC GLUCOSE LABon 08-17-2018 Glucose [Mass/Vol] 113 mg/dL High 70-100 The [facility] Comment on above: Performed By: #### 8 5499 #### [facility] [address] [facility] [place] [address], [facility] RBC'S 2 UNITSon 08-17-2018 CROSSMATCH INTERP 1 COMP Normal [facility] Comment on above: Performed By: #### 8 6002 #### [facility] [address] [facility] [place] [address], [facility] CROSSMATCH INTERP 2 COMP Normal [facility] Comment on above: Performed By: #### 8 6002 #### [facility] [address] [facility]. [address] PRODUCT CODE 1 E0336 Normal The [facility] Comment on above: Performed By: #### 8 6002 #### [facility] [address] [facility] [place] [address], [facility] PRODUCT CODE 2 E0336 Normal [facility] Comment on above: Performed By: #### 8 6002 #### [facility] [address] [facility] [place] [address], [facility] PRODUCT STATUS 1 RE Normal The [facility] Comment on above: Result Comment: Resu lt changed by IF on 08/20/2018 07:48. The previous value was XM. Performed By: #### 8 6002 #### [facility] [address] [facility] [place] [address], [facility] PRODUCT STATUS 2 RE Normal [facility] Comment on above: Result Comment: Resu lt changed by IF on 08/20/2018 07:48. The previous value was XM. Performed By: #### 8 6002 #### [facility] [address] [place] [address], [facility] UNIT ABO 1 A Normal [facility] Comment on above: Performed By: #### 8 6002 #### [facility] [address] [place] [address], [facility] UNIT ABO 2 A Normal [facility] Comment on above: Performed By: #### 8 6002 #### [facility] [address] [place] [address], [facility] UNIT ID 1 [id number] Normal The [facility] Comment on above: Performed By: #### 8 6002 #### [facility] [address] [place] [address], [facility] UNIT ID 2 [id number] Normal The [facility] Comment on above: Performed By: #### 8 6002 #### [facility] [address] [place] [address], [facility] UNIT RH 1 Positive Normal [facility] Comment on above: Performed By: #### 8 6002 #### [facility] [address] [place] [address], [facility] UNIT RH 2 Positive Normal [facility] Comment on above: Performed By: #### 8 6002 #### [facility] [address] [place] [address], [facility] *MRSA/MSSA CULTUREon 018 *MRSA/MSSA CULTURE Clinical Report: (D) Specimen: NASAL SWAB Collected: 08/02/2018 12:37 Status: Final Last Updated: 08/03/2018 14:26 ISO (Final) No Methicillin Resistant Staphylococcus aureus Isolated (MRSA) ISO (Final) Methicillin Sensitive Staphylococcus aureus (MSSA) Isolated Normal [facility] Comment on above: Performed By: #### 3 1302 #### [facility] [address] APTTon 08-02-2018 aPTT Coag (Bld) [Time] 31.2 s Normal 25.0-35.0 [facility] Comment on above: Result Comment: [...] THIS PURPOSE. Performed By: #### 5 7307, 52718 #### [facility] [address] [facility]. [address] BASIC METABOLIC PANELon 07-15 Calcium [Mass/Vol] 9.4 mg/dL Normal 8.6-10.3 [facility] Comment on above: Performed By: #### 0 0071 #### [facility] [address] [facility] [place] [address], [facility] Chloride [Moles/Vol] 103 mmol/L Normal 98-107 [facility] Comment on above: Performed By: #### 0 0071 #### [facility] [address] [facility] [place] [address], [facility] CO2 [Moles/Vol] 29 mmol/L Normal 21-31 [facility] Comment on above: Performed By: #### 0 0071 #### [facility] [address] [facility] [place] [address], [facility] Creatinine [Mass/Vol] 1.06 mg/dL Normal 0.70-1.30 [facility] Comment on above: Performed By: #### 0 0071 #### [facility] [address] [facility] [place] [address], [facility] GFR/1.73 sq M predicted among blacks MDRD (S/P/Bld) [Vol rate/Area] mL/min/{1.73_m2} Normal >60 [facility] Comment on above: Performed By: #### 0 0071 #### [facility] [address] [facility] [place] [address], [facility] GFR/1.73 sq M predicted among non-blacks MDRD (S/P/Bld) [Vol rate/Area] mL/min/{1.73_m2} Normal >60 [facility] Comment on above: Performed By: #### 0 0071 #### [facility] [address] [facility] [place] [address], [facility] Glucose [Mass/Vol] 84 mg/dL Normal 70-100 The [facility] Comment on above: Performed By: #### 0 0071 #### [facility] [address] [place] [address], [facility] Potassium [Moles/Vol] 4.0 mmol/L Normal 3.5-5.1 [facility] Comment on above: Performed By: #### 0 0071 #### [facility] [address] [facility] [place] [address], [facility] Sodium [Moles/Vol] 140 mmol/L Normal 136-145 The [facility] Comment on above: Performed By: #### 0 0071 #### [facility] [address] [facility] [place] [address], [facility] Urea nitrogen [Mass/Vol] 20 mg/dL Normal 7-25 [facility] Comment on above: Performed By: #### 0 0071 #### [facility] [address] [facility] [place] [address], [facility] CBC W/DIFFon 08-02-2018 ABS BASOPHILS 0.1 10*3/uL Normal 0.0-0.2 The [facility] Comment on above: Performed By: #### 5 0103 #### [facility] [address] [place] [address], [facility] ABS IMM GRANS 0.1 10*3/uL Normal 0.0-0.2 The [facility] Comment on above: Performed By: #### 5 0103 #### [facility] [address] [place] [address], [facility] ABS NEUTROPHILS 4.2 10*3/uL Normal 1.6-7.6 The [facility] Comment on above: Performed By: #### 5 0103 #### [facility] [address] [place] [address], [facility] Basophils/100 WBC (Bld) 1.3 % High 0.0-1.0 [facility] Comment on above: Performed By: #### 5 0103 #### [facility] [address] [facility] [place] [address], [facility] Eosinophils (Bld) [#/Vol] 0.1 10*3/uL Normal 0.0-0.5 [facility] Comment on above: Performed By: #### 5 0103 #### [facility] [address] [place] [address], [facility] Eosinophils/100 WBC (Bld) 2.0 % Normal 0.0-6.0 [facility] Comment on above: Performed By: #### 5 0103 #### [facility] [address] [facility] [place] [address], [facility] Erythrocyte distribution width (RBC) [Ratio] 13.6 % Normal 11.5-15.0 [facility] Comment on above: Performed By: #### 5 3 #### [facility] [address] [facility] [place] [address], [facility] Hematocrit (Bld) [Volume fraction] 44.3 % Normal 39.0-50.0 [facility] Comment on above: Performed By: #### 5 3 #### [facility] [address] [place] [address], [facility] Hemoglobin (Bld) [Mass/Vol] 15.1 g/dL Normal 13.0-17.0 [facility] Comment on above: Performed By: #### 5 0103 #### [facility] [address] [place] [address], [facility] IMMATURE GRANS 1.1 % High 0.0-1.0 [facility] Comment on above: Performed By: #### 5 0103 #### [facility] [address] [place] [address], [facility] Lymphocytes (Bld) [#/Vol] 1.2 10*3/uL Normal 1.2-4.0 [facility] Comment on above: Performed By: #### 5 0103 #### [facility] [address] Lymphocytes/100 WBC (Bld) 18.3 % Low 20.0-45.0 [facility] Comment on above: Performed By: #### 5 0103 #### [facility] [address] [place] [address], [facility] MCH (RBC) [Entitic mass] 29.0 pg Normal 27.0-33.0 [facility] Comment on above: Performed By: #### 5 0103 #### [facility] [address] MCHC (RBC) [Mass/Vol] 34.1 g/dL Normal 32.0-35.0 [facility] Comment on above: Performed By: #### 5 3 #### [facility] [address] [place] [address], [facility] MCV (RBC) [Entitic vol] 85.0 fL Normal 82.0-98.0 [facility] Comment on above: Performed By: #### 5 3 #### [facility] [address] [place] [address], [facility] Monocytes (Bld) [#/Vol] 0.7 10*3/uL Normal 0.1-1.0 [facility] Comment on above: Performed By: #### 5 0103 #### [facility] [address] [place] [address], [facility] MONOS 11.1 % Normal 5.0-12.0 [facility] Comment on above: Performed By: #### 5 0103 #### [facility] [address] [place] [address], [facility] Neutrophils/100 WBC (Bld) 66.2 % Normal 40.0-72.0 [facility] Comment on above: Performed By: #### 5 0103 #### [facility] [address] [place] [address], [facility] Nucleated RBC/100 WBC (Bld) [Ratio] 0 % Normal 0-0 [facility] Comment on above: Performed By: #### 5 0103 #### [facility] [address] PLAT CNT 179 10*3/uL Normal 150-[address] [facility] Comment on above: Performed By: #### 5 0103 #### [facility] [address] [place] [address], [facility] RBC (Bld) [#/Vol] 5.21 10*6/uL Normal 4.20-5.70 The [facility] Comment on above: Performed By: #### 5 0103 #### [facility] [address] [place] [address], [facility] WBC (Bld) [#/Vol] 6.39 10*3/uL Normal 4.00-10.60 The [facility] Comment on above: Performed By: #### 5 3 #### [facility] [address] CERVICAL SPINE 4 OR 5 VIEWSo n 08-02-2018 CERVICAL SPINE 4 OR 5 VIEWS [facility] Department of Radiology [address] [place] [id number] ======== Patient Name: MATTY GARCES : [...] findings. Electronically signed by:Bella King. Transcribed by: [email or web address], User Resident: KENNETH DUVAL Electronically Signed by: BELLA KING @ 08/03/2018 11:58 AM I personally read this/these film(s) with this resident Normal [facility] Comment on above: Order Comment: , PRE OP XRAY AP/LAT \EANDE\ FLEX/EX , PREOP XRAY AP/LAT \EANDE\ FLEX/EX , , , Ordering Provider - LUCIANO DAVIS MD , PROTHROMBIN TIMEon 8 INR Coag (PPP) [Relative time] 1.15 {INR} Normal 0.91-1.16 [facility] Comment on above: Result Comment: [...] CHEST 1995;108:231S-246S. Performed By: #### 5 7307, [id number] #### [facility] [address] [place] [address], [facility] PT Coag (PPP) [Time] 14.7 s Normal 12.3-14.8 [facility] Comment on above: Result Comment: ALL RESULTS MUST BE INTERPRETED WITH RESPECT TO BLOOD DRAWING ARTIFACT OR DILUTION ERROR OF ANTICOAGULANT AT THE TIME OF SAMPLING. Performed By: #### 5 7307, [id number] #### [facility] [address] [place] [address], [facility] TYPE AND SCREENon 08-02-2018 ABO INTERPRETATION A Normal [facility] Comment on above: Order Comment: 2 uni ts 2 units 2 units 2 units 2 units Performed By: #### 6 2586 #### [facility] [address] [place] [address], [facility] RH INTERPRETATION Positive Normal The [facility] Comment on above: Order Comment: 2 uni ts 2 units 2 units 2 units 2 units Performed By: #### 6 2586 #### [facility] [address] [place] [address], [facility] URINALYSIS REFLEXon 08-02-20 18 Appearance (U) CLEAR Normal CLEAR The [facility] Comment on above: Performed By: #### 3 0965 #### [facility] [address] [place] [address], [facility] Bilirubin [Mass/Vol] Negative Normal NEGATIVE [facility] Comment on above: Performed By: #### 3 0965 #### [facility] [address] [place] [address], [facility] BLOOD Negative Normal NEGATIVE [facility] Comment on above: Performed By: #### 3 0965 #### [facility] [address] [place] [address], [facility] Color (U) YELLOW Normal YELLOW [facility] Comment on above: Performed By: #### 3 0965 #### [facility] [address] [facility] [address], [facility] Glucose [Mass/Vol] 150 mg/dL Abnormal NEGATIVE The [facility] Comment on above: Performed By: #### 3 0965 #### [facility] [address] [place] [address], [facility] KETONE Negative Normal NEGATIVE [facility] Comment on above: Performed By: #### 3 0965 #### [facility] [address] [facility] [address], [facility] [place] Negative Normal NEGATIVE [facility] Comment on above: Performed By: #### 3 0965 #### [facility] [address] [place] [address], [facility] MICRO NOT DONE negative chemical reactions unless requested in original order Normal [facility] Comment on above: Performed By: #### 3 0965 #### [facility] [address] [place] [address], [facility] Nitrite Ql (U) Negative Normal NEGATIVE The [facility] Comment on above: Performed By: #### 3 0965 #### [facility] [address] [place] [address], [facility] pH (Bld) 5.0 Normal 5.0-8.0 [facility] Comment on above: Performed By: #### 3 0965 #### [facility] [address] [place] [address], [facility] Protein (U) [Mass/Vol] Negative Normal NEGATIVE [facility] Comment on above: Performed By: #### 3 0965 #### [facility] [address] [place] [address], [facility] SPEC GRAV 1.024 High 1.015-1.[address] [facility] Comment on above: Performed By: #### 3 0965 #### [facility] [address] [facility] [place] [address], [facility] Vital Signs Date Time Vital Sign Value Performing Clinician Facility 01-03-2025 14:44-0400 Body height 188 cm Rubén Geiger MD Work Phone: [facility] 01-03-2025 14:44-0400 Body mass index (BMI) [Ratio] 35.31 kg/m2 Rubén Geiger MD Work Phone: [facility] 01-03-2025 14:44-0400 Body weight 124.74 kg Rubén Geiger MD Work Phone: [facility] 07-03-2024 14:45-0400 Body height 188 cm Rubén Geiger MD Work Phone: [facility] 07-03-2024 14:45-0400 Body mass index (BMI) [Ratio] 37.62 kg/m2 Rubén Geiger MD Work Phone: [facility] 07-03-2024 14:45-0400 Body weight 132.9 kg Rubén Geiger MD Work Phone: [facility] 02-25-2022 10:30-0400 Blood Pressure Location Viola Lue [facility] 02-25-2022 10:30-0400 Diastolic blood pressure 107 mm[Hg] Viola Lue [facility] 02-25-2022 10:30-0400 Heart rate 74 /min Viola Lue [facility] 02-25-2022 10:30-0400 Respiratory rate 16 /min Viola Lue [facility] 02-25-2022 10:30-0400 Systolic blood pressure 157 mm[Hg] Viola Grullon [facility] Encounters Encounter Date Encounter Type Care Provider Facility Start: 01-03-2025 End: 01-03-2025 Office outpatient visit 25 minutes Rubén Geiger MD Work Phone: [facility] Comment on above: Primary narcolepsy w ith cataplexy (CMS/HCC) (Primary Dx); Excessive daytime sleepiness; Obstructive sleep apnea Start: 01-03-2025 End: 01-03-2025 ambulatory RUBÉN GEIGER Not Available Start: 01-03-2025 End: 01-03-2025 Jeremy flowsheet Rubén Geiger MD Work Phone: [facility] Start: 01-03-2025 End: 01-03-2025 Bamboo flowsheet Rubén Geiger MD Work Phone: [facility] Start: 12-11-2024 End: 12-11-2024 ambulatory RUBÉN GEIGER Not Available Start: 12-11-2024 End: 12-11-2024 Office outpatient visit 25 minutes Rubén Geiger MD Work Phone: 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 Other Phone: [facility] Start: 10-12-2024 End: 10-12-2024 Telephone encounter Heather Miguel NP Work Phone: [facility] 210 Start: 10-08-2024 Evaluation and manag ement of inpatient [facility] Start: 10-08-2024 End: 10-11-2024 Evaluation and management of inpatient ARMANDO BERG [facility] Start: 10-02-2024 End: 10-02-2024 Refill Marianna Sheehan [facility] Comment on above: Excessive daytime sl eepiness; Obstructive sleep apnea Start: 09-28-2024 Evaluation and manag ement of inpatient MARIANNA SUAREZ [facility] Start: 09-25-2024 Evaluation and manag ement of inpatient MARILOU TOMLIN [facility] Start: 09-25-2024 Evaluation and manag ement of inpatient [facility] Start: 09-24-2024 Evaluation and manag ement of inpatient [facility] Start: 09-24-2024 Evaluation and manag ement of inpatient SANDRINE HAHN [facility] Start: 09-24-2024 Evaluation and manag ement of inpatient [facility] Start: 09-23-2024 Emergency department patient visit [facility] Start: 09-23-2024 Emergency department patient visit [facility] Start: 09-23-2024 Emergency department patient visit [facility] Start: 09-23-2024 End: 09-28-2024 Evaluation and management of inpatient SERA WAYNE [facility] Start: 09-21-2024 End: 09-21-[address] [facility] Work Phone: Start: 09-21-2024 End: 09-21-2024 Departed Referred Trey Vallejo DPM Work Phone: [facility] Start: 07-04-2024 End: 07-05-2024 Telephone encounter [...] Start: 01-03-2024 End: 01-03-2024 ambulatory Trey Smith [facility] Work Phone: Start: 01-03-2024 End: 01-03-2024 Departed Referred DPM [facility] Work Phone: [facility] Start: 11-29-2023 End: 11-30-2023 ambulatory Diallo Beauchamp MD Facility: [facility] Start: 10-18-2023 End: 10-19-2023 ambulatory Diallo Beauchamp MD Facility:[facility] Start: 08-30-2023 End: 08-31-2023 ambulatory Diallo Beauchamp MD Facility: [facility] Start: 07-12-2023 End: 07-13-2023 ambulatory Diallo Beauchamp MD Facility: [facility] Start: 06-14-2023 End: 06-15-2023 ambulatory Diallo Beauchamp MD Facility:[facility] Start: 12-06-2022 End: 12-06-[address] VENUS JAEGER . Facility: Start: 12-05-2022 Encounter for genera l adult medical examination without abnormal findings DR VENUS JAEGER . The [facility] Start: 12-01-2022 End: 12-02-[address] [...] encounter procedure Viola Grullon [facility] Start: 01-04-2022 End: 01-05-[address] VENUS JAEGER . Facility: Start: 01-30-2019 End: 02-01-2019 Evaluation and management of inpatient PROVIDER UNKNOWN Facility:[facility] Start: 08-17-2018 End: 08-18-2018 Patient encounter procedure PROVIDER UNKNOWN Facility:[facility] Procedures Date Procedure Procedure Detail Performing Clinician Start: 12-01-[address] FRANKLIN JAEGER . Comment on above: Performed By: #### P [facility] #### [facility] [address] [address] [address] Shabnam Rae Start: 01-30-2019 FUSION CERV JT W INT BD FUS DEV, ANT APPR A COL, OPEN [facility] Start: 01-30-2019 REMOVAL OF INT FIX F ROM CERVCAL VERTEBRA, OPEN APPROACH [facility] Start: 01-23-2019 Antibody screen PROVIDE R UNKNOWN Comment on above: Performed By: #### 5 7307, [id number] #### [facility] [address] [facility] [place] [address], [facility] Start: 08-17-2018 ANESTH SPINE CORD SURGERY SANDRA [...] By: #### 6 2586 #### [facility] [address] [place] [address], [facility] Start: 02-08-1998 H/O: vasectomy History of vasectomy Rubén Geiger MD Work Phone: Colonoscopy [facility] Grullon Hemorrhoids (disorder) Viola Grullon Hernia of abdominal cavity (disorder) Viola Grullon Tonsillectomy Viola Grullon Plan of Treatment Date Care Activity Detail Author Start: 04-04-2025 End: 04-04-2025 Patient encounter procedure 04/04/2025 11:20 AM EDT Office Visit [facility] [address] [phone] Rubén Geiger MD [address] [facility] [address] Knight [address] [place] [id number] [facility] Start: 01-03-2025 End: 01-03-2025 Patient encounter procedure [facility] Comment on above: Arrived Start: 10-04-2024 End: 10-04-2024 Patient encounter procedure 10/04/2024 2:20 PM EST Office Visit [facility] [address] [phone] Rubén Geiger MD [address] [facility] [address] [place] [address] [facility] Start: 09-21-2024 Superficial Wound Culture Superficial Wound Culture [facility] Start: 07-03-2024 End: 07-03-2024 Patient encounter procedure [facility] Comment on above: Arrived Start: 05-14-2024 Influenza vaccination Influenza Vacc ine (#1) [facility] Start: 1970 Screening for malign ant neoplasm of colon [facility] Bacteria identified in Unspecified specimen by Aerobe culture [facility] Immunizations Immunization Date Immunization Notes Care Provider Fa cility 07-06-2023 influenza virus vacc ine, unspecified formulation Rubén Geiger MD Work Phone: [facility] Healthcare Payers Date Payer Category Payer Self-pay [id number] 2022 Medicaid [id number] 2022 Medicaid [id number] 2022 Unknown 1970 Unknown [id number] 2.16.8 40.1.780459.3.579.2.647 1970 Unknown [id number] 2.16.8 40.1.850522.3.579.2.647 1970 Unknown [id number] 2.16.84 0.1.039398.3.579.2.593 1970 Unknown [id number] 2.16.84 0.1.561244.3.579.2.593 1969 Unknown [id number] 2.16.84 0.1.205122.3.579.2.593 1969 Unknown [id number] 2.16.84 0.1.866005.3.579.2.593 1969 Unknown [id number] 2.16.84 0.1.435800.3.579.2.593 1969 Unknown [id number] 2.16.84 0.1.563767.3.579.2.593 1969 Unknown [id number] 2.16. 840.1.557706.3.579.2.196 1969 Unknown [id number] 2.16. 840.1.786656.3.579.2.196 1969 Unknown [id number] 2.16. 840.1.221720.3.579.2.196 1969 Unknown [id number] 2.16. 840.1.084894.3.579.2.196 1969 Unknown [id number] 2.16. 840.1.810220.3.579.2.196 1969 Unknown [id number] 2.16.84 0.1.379463.3.579.2.1259 1969 Unknown [id number] 2.16.84 0.1.658928.3.579.2.1259 1969 Unknown [id number] 2.16.84 0.1.037953.3.579.2.1259 1969 Unknown [id number] 2.16.84 0.1.078431.3.579.2.1259 1969 Unknown [id number] 2.16.84 0.1.439121.3.579.2.1259 1969 Unknown [id number] 2.16.84 0.1.539875.3.579.2.1259 1959 Unknown [id number] Unknown [id number] Unknown [id number] 2.16.8 40.1.012352.3.579.2.531 Unknown [id number] 2.16.8 40.1.578596.3.579.2.531 Social History Date Type Detail Facility Tobacco smoking status No Smokin g Status Entered [facility] Start: 03-27-2024 End: 07-03-2024 Sex Assigned At Male [facility] Start: 05-15-2018 End: 05-15-2018 Tobacco smoking status NHIS Ex-smoker (finding) [facility] Start: 1970 Sex Assigned At Male F [facility] Start: 03-11-2023 Tobacco smoking stat us NHIS Never smoked tobacco [facility] Start: 03-11-2023 Tobacco use and exposure Smokeless tobacco non-user [facility] Start: 03-27-2024 End: 07-03-2024 Alcoholic beverage intake Ex-drinker (finding) [facility] Start: 03-27-2024 End: 07-03-2024 History of Social function [facility] Start: 1970 Sex assigned at Not on file [facility] Start: 09-22-2024 Sex Male (finding) [facility] Functional Status Date Assessment Result Facility 02-25-2022 Functional Status N/A [facility] Clinical Notes 02-25-2022 to 01-03-2025 Rubén Geiger MD - 01/03/2025 2:40 PM EDTBmaris [...] 1 mg, Oral, 2 times daily HYDROcodone-acetaminophen (Porter) 5-325 MG tablet hydrOXYzine pamoate (Vistaril) 25 [...] in all four extremities, including at least hand cutter apprentice, finger abductors, biceps, triceps, deltoid, toe flexors [...] Xywav to 6mg documented in this encounter [facility] 12-11-2024 History of Present illness Narrative Images [...] 1 mg, Oral, 2 times daily HYDROcodone-acetaminophen (Porter) 5-325 MG tablet hydrOXYzine pamoate (Vistaril) 25 [...] in all four extremities, including at least hand cutter apprentice, finger abductors, biceps, triceps, deltoid, toe flexors [...] or extracranial stenosis. documented in this encounter [facility] 11-14-2024 Telephone encounter Note Pt called for refill on Zofran. [facility] Work Phone: 11-14-2024 Miscellaneous Notes Pt called for refill on Zofran. documented in this encounter [facility] 10-12-2024 Telephone encounter Note Did we send in Xywav REMS form for this patient? [facility] pharmacy calls that the form we sent in had white out on the titration section on the form. They need new form without white out on it? I do not see anything in media sent and if I search patient chat. [facility] 10-12-2024 Miscellaneous Notes Did we send in Xywav REMS form for this patient? [facility] pharmacy calls that the form we sent in had white out on the titration section on the form. They need new form without white out on it? I do not see anything in media sent and if I search patient chat. documented in this encounter [facility] 10-11-2024 Note Occupational Therapy Occupational Therapy [...] going to put in a elba toilet. (Breeder Hen Service Technician suggesting a RTS or to have son put in toilet however, pt stated that he will replace the toilet himself) Objective 1 Pt was up in chair at EOS with on her way. Objective 2 Breeder Hen Service Technician provided education on home and bathroom safety. 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 [facility] 10-11-2024 Note Hospital Medicine Discharge Summary Final Discharge Diagnosis: Left leg cellulitis Open wound of left great toe HTN Anxiety disorder Chronic combined systolic and diastolic Congestive heart failure, NYHA II Closed fracture of right fibula and tibia Admission Diagnosis: Left leg cellulitis [L03.116] Cellulitis of right lower extremity [L03.115] Cellulitis of left leg [L03.116] Hospital course: 54-year-old male who came from [facility] due to left lower extremity cellulitis. [...] Medications These medications were sent to [facility] - [place], [place] - [address] [facility] [address], [place] [address] Phone (more content not included)... [facility] 10-11-2024 Note Pharmacy Dosing Serv ice [...] questions Thank you, Sudha Camacho, PharmD, 10/11/24 [facility] 10-11-2024 Note Attestation signed by Sandrine [...] with any concerns via the Orthopaedic pager ([phone]) at any time. Jazzmine Casanova MD Orthopedic Surgery Resident, PGY 1 [facility] 10-10-2024 Note Hospital Medicine Daily Progress Note - 10/10/2024 6:40 PM; Room: 6136/6136- Admission: 10/08/2024 5:47 AM; Length of stay: 2 days THE HOSPITALIST TEAM PREFERS TO USE [employer] CHAT FOR NON-URGENT COMMUNICATION 7AM-7PM. IF I DO NOT RESPOND WITHIN 20 MINUTES OR URGENT MATTERS, PLEASE CALL THROUGH THE SUPERVISOR CAR AND YARD. FROM 7PM-7AM, PLEASE PAGE [phone](COVR). Code Status: Full Code Barriers to Discharge: [...] , FREET4 , CORTISOL , FEV1 , [id number] , DLCO , RVSP , HDL , LDL No results found for: [id number] , IRON , TIBC , C3 , [...] c (06) PT (more content not included)... [facility] 10-10-2024 Note [facility] Surgery/Wound Care CONSULTATION Reason for Consult: [...] Patient reports that he has followed with electric sign wirer in [place] for many years for treatment of his left great toe DFU. States that is chronic and has been minimal healing progress until recently. Patient states he would like to resume care with this electric sign wirer at discharge. He has not been able to see electric sign wirer since previous discharge due to scheduling issues. [...] file Occupational Histor (more content not included)... [facility] 10-10-2024 Note Physical Therapy Physical Therapy [...] Technique 1 S (more content not included)... [facility] 10-10-2024 Note . Pharmacy Dosing Service [...] -Check BUN/SCr daily Altaf Martin, PharmD, 10/09/24 [facility] 10-09-2024 Note Occupational Therapy Occupational Therapy Evaluation Patient Name: Matty Garces : 1970 Today's Date: 10/09/2024 Time in:1504 Time out: 1526 Present Illness History: 54 y/o M presented from [facility] with R LE cellulitis. Patient was recently [...] Level of Function Prior Function Level of [place]: Independent with ADLs and functional transfers, Independent [...] transfers and fu (more content not included)... [facility] 10-09-2024 Note 10/09/24 0909 Admission Assessment [...] Status Interested Does the patient have a block and case maker assigned to them through their insurance? No Living Arrangement (Current/Prior to Hospitalization) Private residence (lives with ) Does the patient have history of C or SNF? Yes (Active with [facility]) Assistive Device Wheelchair;Bedside Commode;Walker Patient's goal for discharge Home with [facility] Was patient reminded that goal for discharge is 11am? No Does the patient have transportation at discharge? Yes Type of Residence Private residence;Home care staff Is PT/OT appropriate? Yes Is PT/OT ordered? Yes Is SW consult appropriate? Yes Is SW consult ordered? Yes Do you understand the benefits of MyChart? Yes Were you able to send link and activate MyChart? No [facility] 10-09-2024 Note Hospital Medicine Daily Progress Note - 10/09/2024 12:13 PM; Room: 6136/6136-01 Admission: 10/08/2024 5:47 AM; Length of stay: 1 days THE HOSPITALIST TEAM PREFERS TO USE [employer] CHAT FOR NON-URGENT COMMUNICATION 7AM-7PM. IF I DO NOT RESPOND WITHIN 20 MINUTES OR URGENT MATTERS, PLEASE CALL THROUGH THE SUPERVISOR CAR AND Y[employer]. FROM 7PM-7AM, PLEASE PAGE [phone](COVR). Code Status: Full Code Barriers to Discharge: [...] , FREET4 , CORTISOL , FEV1 , [id number] , DLCO , RVSP , HDL , LDL No results found for: [id number] , IRON , TIBC , C3 , [...] Discharge Planning Expected Discharge Disposition: Home-Health Care [facility] (06) PT Discharge Recommendations: Home PT Signed C (more content not included)... [facility] 10-09-2024 Note Physical Therapy Physical Therapy Re-Evaluation Patient Name: Matty Garces : 1970 Today's Date: 10/09/2024 General Subjective: Attempted to see pt earlier today ([id number]) for mobility assessment. Pt deferred d/t pain [...] Therapeutic Exercise Therape (more content not included)... [facility] 10-09-2024 Note . Pharmacy Dosing Service [...] -Check BUN/SCr daily Altaf Martin, PharmD, 10/09/24 [facility] 10-09-2024 Note Orthopaedic Surgery Orthopaedic Surgery [...] Rivas MD Orthopaedic Surgery, PGY-2 Ortho Pager [phone] 10/09/24 6:38 AM I am available via OnDeck 6a-6p. May contact the on-call resident with any concerns via the Orthopaedic pager at any time. [facility] 10-08-2024 Note Case was discussed w ith the AYAKA on 10/08/2024. I agree with the history, physical, assessment, and plan of care. I discussed the findings and therapeutic plan. I agree with the documentation, except for any updates below. Fabiola Wade DO [facility] 10-08-2024 Note Physical Therapy Ashwini lindsey Patient Name: Matty Garces Today's Date: 10/08/2024 Admit Date: 10/08/2024 Time In: 1:20pm Time Out: 1:45pm Cumulative minutes: 25 minutes Billed minutes: 25 minutes; 15 min eval; 10 min therapeutic exercise to review HEP x10 reps. History of present illness Per H&P: Matty Garces is an 54 y.o. male who came from [facility] with LLE cellulitis. Patient has PMH of hypertension, diastolic heart failure, GERD, anxiety. He recently was admitted here and had right leg tib/fib fracture and seen by our ortho team and had closed insertion with intramedullary wendy on 09/24/24 and was discharged home. He reports he went to [place] [facility] due to increased pain, swelling and [...] team was informed at approximately 1730 per [facility] that patient went into a-flutter and sustained for approximately 2 hours from approximately 7900-1833. Trauma team ordered a STAT ECG and [...] still state that he wants to leave [facility] hospital, [facility] paperwork reviewed and signed, patient left hospital [...] status. Objective assessment (more content not included)... [facility] 10-08-2024 Note Pharmacy Dosing Serv ice - Vancomycin Initial Consult Note Pharmacy has been consulted for the dosing and evaluation of Drug: Vancomycin Indication: complicated skin and soft tissue infection AUC 400-600 mg*hr/L and trough 10-20 mcg/mL Other Antimicrobial Regimens: cefepime Labs and Renal Function Total body weight: 134 kg (295 lb) Kirksey body weight: 82.2 kg (181 lb 3.5 [...] Comments: - 54 year old male from [place] with LLE cellulitis -Had intramedullary wendy placed [...] questions Thank you, Altaf Martin, PharmD, 10/08/24 [facility] 10-08-2024 Note Will consult wound care [facility] 10-08-2024 Note Continue vanco and z osyn Ortho following Will get blood cultures [facility] 10-08-2024 Note Continue citalopram, clonazepam [facility] 10-08-2024 Note Continue modafinil, coreg Beckijarad cantrell [facility] 10-08-2024 Note Not in exacerbation Continue furosemide, coreg, asa [facility] 10-08-2024 Note Ortho following, con cern for possible infection Admit to med surg Activity orders per ortho with LLE Cardiac diet Will get labs this morning and follow up on results Daily bmp and cbc to monitor kidney function, electrolytes, hgb and wbc Case will be discussed with attending physician [facility] 10-08-2024 Note Hospital Medicine History and Physical 10/08/2024 7:26 AM THE HOSPITALIST TEAM PREFERS TO USE [employer] FOR NON-URGENT COMMUNICATION 7AM-7PM. IF I DO NOT RESPOND WITHIN 20 MINUTES OR URGENT MATTERS, PLEASE CALL THROUGH THE SUPERVISOR CAR AND YARD. FROM 7PM-7AM, PLEASE PAGE [phone](COVR). Chief Complaint Chief Complaint Patient presents with Cellulitis History of Present Illness Matty Garces is an 54 y.o. male who came from [facility] with LLE cellulitis. Patient has PMH of hypertension, diastolic heart failure, GERD, anxiety. He recently was admitted here and had right leg tib/fib fracture and seen by our ortho team and had closed insertion with intramedullary wendy on 09/24/24 and was discharged home. He reports he went to [place] [facility] due to increased pain, swelling and [...] this hospital stay by a member of [facility]. Past Medical History Past Medical [...] No Food Insecurity (more content not included)... [facility] 10-02-2024 Telephone encounter Note Provigil refill request to [facility] [place] sent to provider. Last appt. 07/03/24 [facility] 10-02-2024 Miscellaneous Notes Provigil refill request to [facility] [place] sent to provider. Last appt. 07/03/24 documented in this encounter [facility] 09-28-2024 Note Trauma team informed at approximately 1730 per [place] that patient went into a-flutter and sustained for approximately 2 hours from approximately 3177-8341. Trauma team ordered a STAT ECG and [...] tonight, AMA AMA paperwork reviewed and signed [facility] 09-28-2024 Note 09/28/24 1537 Home Oxygen Therapy Evaluation Pulse Oximetry on room air at Rest 94 Pulse Ox on room air while walking 96 Patient Qualification for home oxygen Does not qualify for home oxygen this visit (When pt is sleeping, apnea is noted and at times saturation drops but when pt is awake and moving his oxygenation is stable) [facility] 09-28-2024 Note [facility] Progress Note Subjective Patient was [...] kg (296 lb 15.4 oz) (09/28 035) [place] Coma Scale Score: 15 FiO2 (%): [50 [...] Value Ventricular Rate 82 Atrial Rate 82 WI Interval 164 QRS DURATION 92 QT Interval 386 QTC CALCULATION(BAZETT) 450 P Westbrook 61 R-Westbrook 18 T Wave Westbrook 69 Impression Normal sinus rhythm Normal ECG [...] PT/OT recommending walker, commode, and rolling wheelchair. [facility] 09-28-2024 Note Physical Therapy Physical Therapy Treatment Patient Name: aMtty Garces : 1970 Today's Date: 09/28/2024 Time [...] commode, and recliner (more content not included)... [facility] 09-28-2024 Note Occupational Therapy Occupational Therapy [...] apnea) Gastroesophageal reflux disease Obese Co-tx with SPORTS COMMENTATOR to facilitate purposeful activity, 2/2 high fall risk, impaired dyn standing balance & act tolerance, poor safety awareness, & poor safety awareness with STS, transfers, & functional ambulation; To maintain safety of patient & staff. 09/28/24 1358 OT Last Visit OT Received On 09/28/24 General Subjective I got my w/c 3rd hand...from my olwcsd-ij-tvp. Treatment Duration (min) 55 Minutes Response to [...] not maintain precs. General Assessment Hearing mild [place] Skin Integrity ALVARO wrap to RLE, DFU [...] during mary lou-care post BM, standing at [facility]. Unsteadiness present. Static Sitting Balance Static Sitting-Balance [...] mary lou-care & hygiene in stance at [facility] with RW. Add'l SBA for safety. Pt very unsteady with poor awareness. CGA during functional ambulation with device. Cues for safety awareness, & maintaining WB precs. Bed Mobility 1 Bed Mobility From 1 Supine Bed Mobility Type 1 To Bed Mobility to 1 Short sit Level of Assistance 1 Close superv (more content not included)... [facility] 09-28-2024 Note Called [facility] by phone to check on status of pt's DME (wheelchair, walker, bedside commode). Was advised they did not receive it via [employer] and would need it direct faxed to [phone]. Faxed referral and was advised they will [...] to call . UPDATE 3:05PM- Spoke with [employer] again and was advised the wheelchair could [...] discharge around 6pm tonight. Also spoke with [facility] and was provided w/ fax [phone] to send AVS once ready. UPDATE 4:05PM- Direct faxed final AVS to [facility]. [facility] 09-28-2024 Note [facility] DAILY PROGRESS NOTE [...] BID simvastatin, 20 mg, oral, Nightly Imaging: [facility] Carotid Artery Duplex Bilateral Narrative: [...] Unchanged cardiomediastinal silho (more content not included)... [facility] 09-27-2024 Note Discharge Planning: Home with [facility] The patient was accepted by [facility]. DME referral sent to [employer]. The patient would like the DME either delivered to the hospital or his home prior to discharge. [facility] 09-27-2024 Note Occupational Therapy Occupational Therapy Treatment Patient Name: Matty Garces : 1970 Today's Date: 09/27/2024 Time in:1357 Time out:1450 Total time:53 minutes,23 min OT, additional for SPORTS COMMENTATOR [place] provided to maximize safety as progressed [...] etc Transfers 2 (more content not included)... [facility] 09-27-2024 Note Physical Therapy Physical Therapy [...] for lift, balance, (more content not included)... [facility] 09-27-2024 Note Attestation signed by Fahad Rizzo MD at 09/28/2024 7:41 AM Patient seen and examined with trauma team [facility] Progress Note Subjective Patient was [...] kg (299 lb 2.6 oz) (09/27 338) [place] Coma Scale Score: 15 Intake/Output Summary (Last [...] Value Ventricular Rate 82 Atrial Rate 82 WI Interval 164 QRS DURATION 92 QT Interval 386 QTC CALCULATION(BAZETT) 450 P Westbrook 61 R-Westbrook 18 T Wave [place] 69 Impression Normal sinus rhythm Normal ECG [...] acute findings. Respiratory: (more content not included)... [facility] 09-26-2024 Note Per patients romain aaron was to start with Radha Mendenhall [facility] on the day of admit. Referral made as requested. SW following. [facility] 09-26-2024 Note [facility] DAILY PROGRESS NOTE Subjective Patient seen and examined at bedside. No acute events overnight. Vital signs stable. Denies pain to the left ulcer. Patient states he follows regularly with electric sign wirer at OSH and plans to follow-up with [...] oxygen requirements. COMPARISON: (more content not included)... [facility] 09-26-2024 Note Occupational Therapy Occupational Therapy [...] on with [place] HARP's elevated Objective 2 Breeder Hen Service Technician discussed importance of discharging to facility for continued therapy prior to going home however, pt declines. Pt transfers are currently unsafe with staff writer questioning ability to maintain WB status. [...] Other Pt is impulsive during standing/transfer activities. Breeder Hen Service Technician questions pts safety while at home. 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 [facility] 09-26-2024 Note Orthopaedic Surgery Orthopaedic Surgery [...] Can be reached at the orthopedic pager: [phone] Luis Felipe Rivas MD 09/26/24 7:24 AM Ortho Pager: [phone] [facility] 09-26-2024 Note [facility] Tra[facility] Progress Note Subjective Subjective: Patient [...] kg (303 lb 9.2 oz) (09/26 432) [place] Coma Scale Score: 15 Intake/Output Summary (Last [...] Value Ventricular Rate 82 Atrial Rate 82 WI Interval 164 QRS DURATION 92 QT Interval 386 QTC CALCULATION(BAZETT) 450 P [place] 61 R-Westbrook 18 T Wave [place] 69 Impression Normal sinus rhythm Normal ECG [...] workup -Telemetry monitori (more content not included)... [facility] 09-25-2024 Note Pt was seen early th is morning about wearing BiPap for possible sleep apnea due to periods of apnea and decreased oxygen saturation overnight. Pt refused BiPap, stating he has tried it before and it gives him migraines. Pt was agreeable to wearing a salter at night to help with oxygenation. [facility] 09-25-2024 Note 09/25/24 1528 Referral Data Referral Source demurrage worker Referral Reason Follow up;Information Patient Information Primary Caregiver Spouse Activities of Daily Living Assistive Device Walker;Wheelchair Behavior Oriented Communication Talks;Understands speaking Discharge Planning Living Arrangements Spouse/significant other Support Systems Spouse/significant other Type of Residence Private residence;[facility] (await name of agency from ) Post Acute Services In home services (agreeable to [facility]) Type of Home Care Services (Current) Skilled Home Servicies;Home OT;Home PT ([facility] was just going to start services before admit) Patient's goal for discharge home with [facility] Does the patient need discharge transport arranged? No () Screened by [facility]. Pt declines SNF placement and is agreeable to take pt home with [facility]. Await name of [facility] agency that was approved to start services. Pt will likely need RT for home O2. Will follow up with pt's for [facility] agency. thinks [facility] agency is [facility] [facility] or [employer] [facility]. SW will follow with referrals. [facility] 09-25-2024 Note 09/25/24 1332 Admission Assessment [...] Status Interested Does the patient have a block and case maker assigned to them through their insurance? No Living Arrangement (Current/Prior to Hospitalization) Private residence;Home self care Does the patient have history of HHC or SNF? Yes (pt could not remember the [facility] agency name, neither could ) Assistive Device [...] completed with , patient deferred to . [facility] 09-25-2024 Note The findings from is face to face encounter indicate the reason this patient requires a bedside commode. Patient is physically incapable of using regular toilet facilities. Patient is confined to 1 level of the home with no toilet on that level Marilou Tomlin [facility] Department of Surgery - Trauma [facility] [place] [address] 09-25-2024 Note The findings from is face [...] is provided in the home Marilou Tomlin [facility] Department of Surgery - Trauma [address] [place] [address] 09-25-2024 Note The findings from is face [...] been discussed with the patient Marilou Sada [facility] Department of Surgery - Trauma [facility] [place] [address] 09-25-2024 Note Physical Therapy Physical Therapy Evaluation [...] male admitted 09/23/24 as a transfer from [facility] complaining of R tibial shaft [...] demo General Assessment General Assessment Hearing: mild [place] Skin Integrity: alvaro wrap to RLE, wound [...] Level of Function Prior Function Level of [place]: Independent with ADLs and functional transfers, Independent [...] Perception Inattention/Neglect: A (more content not included)... [facility] 09-25-2024 Note Attestation signed by Gabriel [...] meet criteria for admission to IPR: Assessment: [place] fracture of the right tibial shaft and [...] Plan of Care: Patient with diagnosis of [place] fracture of the right tibial shaft and [...] oral, TID wit (more content not included)... [facility] 09-25-2024 Note Occupational Therapy Occupational Therapy [...] carryover General Assessment General Assessment Hearing: Mild [place] Skin Integrity: ALVARO wrap to RLE, DFU [...] heel WB de (more content not included)... [facility] 09-25-2024 Note Orthopaedic Surgery Orthopaedic Surgery [...] Rivas MD 09/25/24 7:02 AM Ortho Pager: [phone] [facility] 09-25-2024 Note [facility] Progress Note Subjective Subjective: Patient [...] Value Ventricular Rate 82 Atrial Rate 82 WI Interval 164 QRS DURATION 92 QT Interval 386 QTC CALCULATION(BAZETT) 450 P Westbrook 61 R-Westbrook 18 T Wave Westbrook 69 Impression Normal sinus rhythm Normal ECG [...] mary lou-colace an (more content not included)... [facility] 09-24-2024 Note [facility] V[facility] Surgery/Wound Care CONSULTATION Reason for Consult: Left foot ulcer Subjective History of Present Illness: Matty Garces is a 53 y.o. male with a PMH of DM, HTN, HF and recent cellulitis to [facility] . He is admitted for transverse [...] BID, ROMAIN Acevedo, 1 tablet at 09/24/24 1635 Social History Socioeconomic History Marital status: Spouse [...] Pulmonary: Effort: Pulmonar (more content not included)... [facility] 09-24-2024 Note Orthopaedic Surgery Orthopaedic Surgery [...] BRO MD 09/24/24 10:29 PM Ortho Pager: [phone] [facility] 09-24-2024 Note Patient: Matty Ward Procedure Summary Date: 09/24/24 Room / Location: [facility] OPERATING ROOM 05 / [facility] Operating Room Anesthesia Start: 1020 Anesthesia [...] Hydration status: acceptable No notable events documented. [facility] 09-24-2024 Note Airway Date/Time: 09/24/2024 10:35 AM Urgency: elective General Information and Staff Patient location during procedure: OR Anesthesiologist: Jeffery Casey MD Resident/WIRELESS SALES EXPERT/CAA: Kenneth Marina MD Performed: resident/WIRELESS SALES EXPERT/CAA Indications and Patient Condition Indications for airway [...] 1 Number of other approaches attempted: 0 [facility] 09-24-2024 Note Patient: Matty Ward Procedure Information Date/Time: 09/24/24 1000 Procedure: CLOSED INSERTION, INTRAMEDULLARY WENDY, TIBIA (Right: Leg Lower) Location: [facility] OPERATING ROOM 05 / [facility] Operating Room Surgeons: Sandrine Hahn MD [...] Value Ventricular Rate 97 Atrial Rate 97 WI Interval 156 QRS DURATION 84 QT Interval 368 QTC CALCULATION(BAZETT) 467 P Westbrook 54 R-Westbrook 60 T Wave [place] 12 Impression Normal sinus rhythm Normal ECG [...] with attending and resident. Additional Equipment Requests [facility] 09-24-2024 Note Subjective Patient resting comfortably [...] kg (304 lb 3.8 oz) (09/24 951) [place] Coma Scale Score: 15 Intake/Output Summary (Last [...] to LLE, wounds (more content not included)... [facility] 09-24-2024 Note Physical Therapy Name: Matty Garces Date of : 1970 Today's Date: 09/24/24 Pt is unable to be seen for therapy at this time secondary to Surgery today for fixation of frature. Will check back and complete therapy session as appropriate. Check No Charge Time attempted: 0759 Janet Lovelace PT, MPT [facility] 09-24-2024 Note Orthopaedic Surgery Orthopaedic Surgery [...] Rivas MD Orthopaedic Surgery, PGY-2 Ortho Pager [phone] 09/24/24 7:29 AM I am available via [employer] 6a-6p. May contact the on-call resident with any concerns via the Orthopaedic pager at any time. [facility] 07-04-2024 Telephone encounter Note left message regarding prescriptions earlier today and not being at pharmacy. I did call back and spoke to advising they were sent this afternoon. had mentioned Dr. Geiger was also going to start a Vitamin B to help boost energy in the morning. [facility] [place]. [facility] 07-04-2024 Miscellaneous Notes left message regarding prescriptions earlier today and not being at pharmacy. I did call back and spoke to advising they were sent this afternoon. had mentioned Dr. Geiger was also going to start a Vitamin B to help boost energy in the morning. [facility] [place]. documented in this encounter [facility] 07-03-2024 History of Present illness Narrative [...] 1 mg, Oral, 2 times daily HYDROcodone-acetaminophen (Porter) 5-325 MG tablet hydrOXYzine pamoate (Vistaril) 25 [...] reflexes: Alycia's absent. Ankle clonus absent. Coordination Qmoxir-eg-tuav, rapid alternating movements and cyhi-nd-auer normal bilaterally without dysmetria. Gait Normal casual, [...] up 3 months. documented in this encounter [facility] 03-26-2022 Note PROCEDURE: XR FOOT L [...] authenticated by: ALVINA CAICEDO Date: 2022-03-26 10:47 [facility] 02-25-2022 Hospital Discharge instructions Patient [...] Watch the hydrocele for any changes. Take yial-dao-oybaumz and prescription medicines only as told by [...] 02/17/2011 Document Revised: 09/10/2018 Document Reviewed: 09/10/2018 [employer] Patient Education 2020 SMR SITE. Follow Up Care 01/28/2022 10:36:35 With:Mitchel DELGADO, Viola Cohn, URL, URO Address: When: Unknown [facility] Evaluation + Plan note No data available for this section [facility] Evaluation note No assessment inform ation available [facility] Work Phone: Evaluation note Diagnosis [...] [facility] Toño Summary Purpose Family History No [...] May 11:42am Hospital Course Note MR#: [id number] [facility] Pt. Name: Matty Graces Admitted: 01/30/2019 Discharged: 02/01/2019 Date of : [...] and content) DATE CREATED AUTHOR 07/19/2019 [facility] DATE CREATED AUTHOR AUTHOR'S ORGANIZ ATION 02/27/2022 [facility] DATE CREATED AUTHOR AUTHOR'S ORGANIZ ATION 12/08/2022 [facility] DATE CREATED AUTHOR AUTHOR'S ORGANIZ ATION 12/03/2023 [facility] DATE CREATED AUTHOR AUTHOR'S ORGANIZ ATION 09/26/2024 [facility] [address] [facility] DATE CREATED AUTHOR AUTHOR'S ORGANIZ ATION 10/15/[address] [facility] DATE CREATED AUTHOR AUTHOR'S ORGANIZ ATION 01/04/2025 [facility] Care Team (unrecognized sect ion and content) Team Status: Inactive Member Role Status Dates Trey Vallejo DPM [place] Attending Provider Active Start: January 03, 2024 End: January 03, 2024 Shredded Filler Hopper Feeder Relationship Specialty Start Date End Date Venus Jaeger MD [address] [place] [address] PCP - General Family Medicine 01/10/24 Shredded Filler Hopper Feeder Relationship Specialty Start Date End Date Venus Jaeger MD [address] [place] [address] PCP - General Family Medicine 01/10/24 Shredded Filler Hopper Feeder Relationship Specialty Start Date End Date Venus Jaeger MD [address] [place] [address] PCP - General Family Medicine 01/10/24 Shredded Filler Hopper Feeder Relationship Specialty Start Date End Date Venus Jaeger MD [address] [place] [address] PCP - General Family Medicine 01/10/24 Team Status: Inactive Member Role Status Dates Trey Vallejo DPM [place] Attending Provider Active Start: September 21, 2024 End: September 21, 2024 Shredded Filler Hopper Feeder Relationship Specialty Start Date End Date Venus Jaeger MD [address] [place] [address] PCP - General Family Medicine 01/10/24 Shredded Filler Hopper Feeder Relationship Specialty Start Date End Date Venus Jaeger MD [address] [place] [address] PCP - General Family Medicine 01/10/24 Shredded Filler Hopper Feeder Relationship Specialty Start Date End Date Venus Jaeger MD [address] [place] [address] PCP - General Family Medicine 01/10/24 Shredded Filler Hopper Feeder Relationship Specialty Start Date End Date Venus Jaeger MD [address] [place] [address] PCP - General Family Medicine 01/10/24 Shredded Filler Hopper Feeder Relationship Specialty Start Date End Date Venus Jaeger MD [address] [place] [address] PCP - General Family Medicine 01/10/24 Goals [...] BE BASED ON THE PRIMARY CLINICAL RECORDS. [employer] [facility]. provides no warranty or guarantee of the accuracy or completeness of information in this document.
--- NOTE | 2025-03-06 07:45 | PM.HP ---
HPI H&P: HPI History of Present Illness Chief complaint: RT LEG PAIN, CELLULITIS RT LEG, DVT Narrative: In er with celluotis - found ryanne have DRVT and possibel cellulitis -which is recurrent Opioid HPI Opioid Management Most Recent Pain and Opioid Data: Last Pain Scale 7 Today, 09:05 Last Pain Assessment Today, 00:00 Last MAR Pain Assessment 03/05/25, 20:30 Last ORT Total Score 0 03/05/25, 23:46 Last ORT Risk Category Low Risk 03/05/25, 23:46 Review of Systems ROS Status of ROS 10 or more systems reviewed and unremarkable except as noted in history and below [facility] Medical History Prolonged emergence from general anesthesia ?T88.59XA - Other complications of anesthesia, initial encounter (ICD-10) Pain management contract signed ?Z02.89 - Encounter for other administrative examinations (ICD-10) Back pain ?M54.9 - Dorsalgia, unspecified (ICD-10) PTSD (post-traumatic stress disorder) ?F43.10 - Post-traumatic stress disorder, unspecified (ICD-10) Depression ?F32.A - Depression, unspecified (ICD-10) Dysphagia ?R13.10 - Dysphagia, unspecified (ICD-10) Uvulitis ?K12.2 - Cellulitis and abscess of mouth (ICD-10) Insomnia ?G47.00 - Insomnia, unspecified (ICD-10) Migraine ?G43.909 - Migraine, unspecified, not intractable, without status migrainosus (ICD-10) GERD (gastroesophageal reflux disease) ?K21.9 - Gastro-esophageal reflux disease without esophagitis (ICD-10) Dyspnea on exertion ?R06.09 - Other forms of dyspnea (ICD-10) Heart valve disorder ?I38 - Endocarditis, valve unspecified (ICD-10) Hypoglycemia ?E16.2 - Hypoglycemia, unspecified (ICD-10) Delayed recovery from anesthesia Chronic foot ulcer ?L97.509 - Non-pressure chronic ulcer of other part of unspecified foot with unspecified severity (ICD-10) 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 - Central serous chorioretinopathy, unspecified eye (ICD-10) Chronic pain ?G89.29 - Other chronic pain (ICD-10) Narcolepsy ?G47.419 - 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) Anxiety ?F41.9 - Anxiety disorder, unspecified (ICD-10) Upper back pain ?M54.9 - Dorsalgia, unspecified (ICD-10) Low back pain ?M54.50 - Low back pain, unspecified (ICD-10) TMJ (dislocation of temporomandibular joint) ?S03.00XA - Dislocation of jaw, unspecified side, initial encounter (ICD-10) Obesity ?E66.9 - Obesity, unspecified (ICD-10) Sleep apnea ?G47.30 - Sleep apnea, unspecified (ICD-10) Hypertension ?I10 - Essential (primary) hypertension (ICD-10) Surgical History H/O foot surgery ?Z98.890 - Other specified postprocedural states (ICD-10) H/O radiofrequency ablation (RFA) of nerve of lumbar spine ?Z98.890 - Other specified postprocedural states (ICD-10) History of fusion of cervical spine ?Z98.1 - Arthrodesis status (ICD-10) H/O inguinal hernia repair ?Z98.890 - Other specified postprocedural states (ICD-10) ?Z87.19 - Personal history of other diseases of the digestive system (ICD-10) H/O repair of rotator cuff ?Z98.890 - Other specified postprocedural states (ICD-10) History of uvulopalatopharyngoplasty ?Z98.890 - Other specified postprocedural states (ICD-10) Family History Other Family history of diabetes mellitus Family history of hypertension Family history of myocardial infarction Family history of stroke Social History Within the past year, how often did you have a drink containing alcohol: monthly or less Smoking status: Never smoker Non-prescribed substance use: cannabis (any form) Previous occupational history: unemployed Highest level of school completed/degree received: high school graduate Are you now , , , , never or living with a partner: Little interest or pleasure in doing things: more than half the days Feeling down, depressed, or hopeless: more than half the days Feel stressed/tense/nervous/anxious/difficulty sleeping: not at all Do you think of yourself as: don't know Gender Identity: male Meds Home Medications and Allergies Home Medications ?Medication ?Instructions ?Recorded ?Confirmed ?Type carvedilol 25 mg tablet 25 mg PO BID 06/14/23 03/05/25 History doxazosin 8 mg tablet 8 mg PO DAILY 06/14/23 03/05/25 History furosemide 20 mg tablet 20 mg PO DAILY 06/14/23 03/05/25 History gabapentin 600 mg tablet 600 mg PO DAILY 06/14/23 03/06/25 History glycopyrrolate 1 mg tablet 1 mg PO BID 06/14/23 03/05/25 History pantoprazole 40 mg tablet,delayed 40 mg PO DAILY 06/14/23 03/05/25 History release simvastatin 20 mg tablet 20 mg PO .qhs 06/14/23 03/05/25 History modafinil 200 mg tablet 200 mg PO BID 09/04/23 03/05/25 History potassium chloride 10 mEq 10 meq PO Q12H 09/04/23 03/05/25 History tablet,extended release amantadine HCl 100 mg tablet 100 mg PO BID 12/28/23 03/05/25 History cholecalciferol (vitamin D3) 125 5,000 unit PO DAILY 12/28/23 03/05/25 History mcg (5,000 unit) capsule multivitamin (Daily Multi-Vitamin 1 tab PO DAILY 12/28/23 03/05/25 History tablet) biotin 10 mg tablet 10 mg PO DAILY 09/19/24 03/05/25 History citalopram 40 mg tablet 40 mg PO DAILY 09/20/24 03/05/25 History testosterone cypionate 200 mg/mL 300 mg IM Q14D 09/20/24 03/05/25 History intramuscular oil amlodipine 5 mg tablet 5 mg PO QAM 03/06/25 03/06/25 History apixaban 5 mg tablet (Eliquis) 10 mg (2 x 5 mg) PO BID #60 tabs 03/06/25 Rx aspirin 81 mg tablet,delayed 81 mg PO DAILY 03/06/25 03/05/25 History release (Adult Low Dose Aspirin) cefdinir 300 mg capsule 300 mg PO BID #20 caps 03/06/25 Rx doxycycline monohydrate 100 mg 100 mg PO BID 10 days #20 caps 03/06/25 Rx capsule meclizine 25 mg tablet 25 mg PO DAILY PRN dizziness 03/06/25 03/06/25 History ondansetron HCl 4 mg tablet 8 mg PO Q8H PRN nausea and vomiting 03/06/25 03/06/25 History sildenafil 25 mg tablet 25 mg PO Q24H 03/06/25 03/06/25 History sodium, calcium, magnesium, 4.5 g PO HS 03/06/25 03/06/25 History potassium oxybates 0.5 gram/mL oral soln (Xywav) sumatriptan succinate 100 mg 100 mg PO Q2H PRN migraine headache 03/06/25 03/06/25 History tablet (Imitrex) Allergies Allergy/AdvReac Type Severity Reaction Status Date / Time No Known Drug Allergies Allergy Verified 03/05/25 16:28 Exam Constitutional Vital Signs, click to edit/add: Last Vital Signs Temp 98.4 F 03/06/25 04:23 Pulse 81 03/06/25 05:00 Resp 18 03/06/25 04:23 BP 97/58 03/06/25 04:23 Pulse Ox 98 03/06/25 05:00 O2 Del Method Nasal Cannula 03/06/25 04:58 O2 Flow Rate 2 03/06/25 04:58 FiO2 40 03/06/25 05:00 Documenting provider has reviewed patient's vital signs: yes Chest Common normals: inspection of chest normal Respiratory Common normals: normal respiratory effort and no retractions Cardio Common normals: regular rate, regular rhythm and S2 normal heart sound Extremity Common normals: abnormal to inspection (mild edmea and erythema bilateral lower legs) Results Labs Labs: Short CBC 03/05/25 03/06/25 Range/Units 20:10 05:18 WBC 6.7 6.8 (4.0-11.0) 10^3/uL Hgb 14.0 13.3 L (14.0-18.0) g/dL Hct 41.9 L 40.3 L (42.0-54.0) % Plt Count 156 152 (150-450) 10^3/uL BMP 03/05/25 03/06/25 20:10 05:18 Sodium 140 142 Potassium 4.1 4.4 Chloride 101 105 Carbon Dioxide 32.4 H 31.0 BUN 13.0 14.0 Creatinine 0.88 0.87 Glucose 101 112 H Calcium 10.0 9.2 Liver Function 03/05/25 Range/Units 20:10 Total Bilirubin 0.6 (0.2-1.0) mg/dL AST 19 (15-37) U/L ALT 21 (16-63) U/L Alkaline Phosphatase 244 H (46-116) U/L Albumin 3.5 (3.4-5.0) g/dL Assessment and Plan Assessment and Plan (1) DVT (deep venous thrombosis): Plan DVT lower ext with cellultis - pt states pain is better adn erythema uis better and edema is better - will d/c to home and see me in the office in 2 days, medications see list
[2025-03-06 09:05] VITALS: BP 127/78; PULSE 73; TEMP 36.7; O2SAT 91
--- OUTSIDE RECORDS SUMMARY | 2025-03-06 09:55 | XMS_ITS | Encounter Summary ---
Author Organization [facility] Address [address] [place] [address] Care Team Providers Care Top Hat Body Maker Name Role Phone Caden Mendez MD Primary Care Provider [phone] Encounter Details Date Type Department Care Team ([facility] Contact Info) Description 03/24/2023 Abstract [facility] [address] [place] [phone] Christiano Geiger MD [address] [place] [address] Social History Tobacco Use Types Packs/Day Years [...] Upcoming Encounters Date Type Department Care Team ([facility] Contact Info) Description 04/04/2025 11:20 AM EDT Office Visit [facility] [address] [facility] [address] [place] [phone] Christiano Geiger MD [address] [place] [address] [phone] documented as of this encounter Visit Diagnoses Not on filedocumented in this encounter Care Teams Top Hat Body Maker Relationship Specialty Start Date End Date Caden Mendez MD PCP - General Family Medicine 01/10/24 documented as of this encounter
--- OUTSIDE RECORDS SUMMARY | 2025-03-06 09:55 | XMS_ITS | Clinical Summary ---
Author Organization [facility] Address [address] [place] [address] Care Team Providers Care Supply Coordinator Name Role Phone Caden Mendez MD Primary Care Provider [phone] Allergies No known active allergies Medications traMADOL [...] Protein, Total 7.5 6.0 - 8.4 g/dL [facility] Albumin 4.8 3.5 - 5.0 g/dL [facility] Calcium 9.6 8.5 - 10.5 mg/dL [facility] Bilirubin, Total 0.3 0.0 - 1.5 mg/dL [facility] Alkaline Phosphatase 70 40 - 150 U/L [facility] AST 20 7 - 40 U/L [facility] Glucose 54(L) 65 - 100 mg/dL [facility] BUN 25 10 - 25 mg/dL [facility] Creatinine 1.00 0.70 - 1.40 mg/dL [facility] Sodium 143 135 - 146 mmol/L [facility] Potassium 3.5 3.5 - 5.0 mmol/L [facility] Chloride 104 98 - 110 mmol/L [facility] CO2 28 23 - 32 mmol/L [facility] Anion Gap 11 0 - 15 mmol/L [facility] ALT 30 5 - 50 U/L [facility] eGFR- >60 [facility] eGFR-All Other Races >60 . [facility] Comment: eGFR (Estimated GFR) Units of [...] EDT Joan Smith MD LABORATORY Final Result [facility] [address] [place] [address] from Last 3 Months or Most Recently Relevant to Health Maintenance Insurance [employer] [employer] [place] Care Teams Supply Coordinator Relationship Specialty Start Date End Date Caden Mendez MD PCP - General Family Medicine 03/08/12
--- OUTSIDE RECORDS SUMMARY | 2025-03-06 09:55 | XMS_ITS | Encounter Summary ---
Author Organization [facility] Address [address] [place] [address] Care Team Providers Care Employment Advisor Name Role Phone Caden Mendez MD Primary Care Provider [phone] Encounter Details Date Type Department Care Team (Late st Contact Info) Description 03/05/2025 Clinisync Result Encounter [facility] External Department Unsolicited Jess Castañeda PA [address] [place] [address] [address] [place], [place] [phone] Social History Tobacco Use Types Packs/Day Years Used Date Smoking Tobacco: Never Smokeless Tobacco: Never Alcohol Use Standard Drinks/Week Comments Not Currently [...] [facility] [address] [facility] [address] [place] [phone] Christiano Geiger MD [address] [place] [address] [phone] documented as of this encounter Procedures Procedure Name Priority Date/Time Associated Diagnosis Comments ECG 12-LEAD 03/05/2025 9:07 PM EDT documented in this encounter Results * ECG 12-LEAD (03/05/2025 9:07 PM EDT) Anatomical Region Laterality Modality Other 03/05/2025 9:07 PM EDT Narrative 03/06/2025 9:29 AM EDT The [address] [address] Electrocardiograph Report Signed Patient: MATTY WADE MR#: [id number] : 1970 Acct:[id number] Age/Sex: 54 / M ADM Date: 03/05/25 Loc: [place] 221-[address]: Caden Mendez M.D. Ordering Physician: Jess Castañeda Date of Service: 03/05/25 Procedure(s): ECG 12 lead Accession Number(s): [id number] cc: The [facility] Test Date: 2025-03-05 Pat Name: MATTY WADE Department: Room: - Gender: Male Ditcher Operator: : 1970 Requested By: 0923 Order Number: [id number] Reading MD: RAMIRO WALLS M.D. Measurements Intervals [place] Rate: 76 P: 60 [place]: 178 QRS: 69 QRSD: 100 T: 46 QT: 406 QTc: 437 Interpretive Statements 1100 Sinus rhythm 0102 ARTIFACT PRESENT 9110 normal ECG Compared to ECG 09/23/2024 05:51:07 No significant changes Electronically Signed On 03-06-2025 9:29:34 EDT by RAMIRO WALLS M.D. Dictated By: RAMIRO WALLS Signed By: 03/06/25928 DD/ 06 TD/TT: Operations Architect: Procedure Note Radiology, Radiologist, MD - 03/06/[address] [address] Electrocardiograph Report Signed Patient: MATTY WADE TMR#: [id number] : 1970Acct:[id number] Age/Sex: 54 / MADM Date: 03/05/25 Loc: [place] 221-[address]: Caden Mendez M.D. Ordering Physician: Jess Castañeda Date of Service: 03/05/25 Procedure(s): ECG 12 lead Accession Number(s): [id number] cc: The [facility] Test Date: 2025-03-05 Pat Name: MATTY WADE Department: Room: - Gender: Male Ditcher Operator: : 1970 Requested By: 0923 Order Number: [id number] Reading MD: RAMIRO WALLS M.D. Measurements Intervals [place] Rate: 76 P: 60 [place]: 178 QRS: 69 QRSD: 100 T: 46 QT: 406 QTc: 437 Interpretive Statements 1100 Sinus rhythm 0102 ARTIFACT PRESENT 9110 normal ECG Compared to ECG 09/23/2024 05:51:07 No significant changes Electronically Signed On 03-06-2025 9:29:34 EDT by RAMIRO WALLS M.D. Dictated By: RAMIRO WALLS Signed By:03/06/25928 DD/ 06 TD/TT: Operations Architect: Jess [facility] Final Result documented in this encounter Visit Diagnoses Not on filedocumented in this encounter Care Teams Employment Advisor Relationship Specialty Start Date End Date Caden Mendez MD PCP - General Family Medicine 01/10/24 documented as of this encounter
--- OUTSIDE RECORDS SUMMARY | 2025-03-06 09:55 | XMS_ITS | Encounter Summary ---
Author Organization [facility] Address [address] [place] [address] Care Team Providers Care Tracer Lathe Set Up Operator Name Role Phone Caden Mendez MD Primary Care Provider [phone] Encounter Details Date Type Department Care Team ([facility] Contact Info) Description 07/17/2023 Abstract [facility] [address] [place] [phone] Christiano Geiger MD [address] [facility] [address] [place] [phone] Social History Tobacco Use Types Packs/Day Years [...] NEUR [address] [place] [address] [place] [phone] Christiano Geiger MD [address] [place] [address] [phone] documented as of this encounter Visit Diagnoses Not on filedocumented in this encounter Care Teams Tracer Lathe Set Up Operator Relationship Specialty Start Date End Date Caden Mendez MD PCP - General Family Medicine 01/10/24 documented as of this encounter
--- OUTSIDE RECORDS SUMMARY | 2025-03-06 09:55 | XMS_ITS | Clinical Summary ---
Author Organization [facility] Address [address] [place] [address] Care Team Providers Care Hotel Administrative Assistant Name Role Phone Caden Mendez MD Primary Care Provider [phone] Allergies Active Allergy Reactions Criticality Noted Date [...] at the same time Active HYDROcodone-aceta minophen ([place]) 5-325 MG tablet 03/20/20 24 Active cholecalciferol [...] Encounters Date Type Department Care Team Description 03/05/2025 Clinisync Result Encounter [facility] External Department Unsolicited Jess Castañeda PA 01/03/2025 2:40 PM EDT Office Visit [facility] [address] [place] [address] [place] [address] Christiano Geiger MD Primary narcolepsy with cataplexy (HCC) (Primary Dx); Excessive daytime sleepiness; Obstructive sleep apnea 01/03/2025 Bamboo flowsheet [facility] [address] [place] [address] Christiano Geiger MD 01/03/2025 Travel 12/11/2024 4:10 PM EDT Telemedicine [facility] [address] [place] [address] [place] [phone] Christiano Geiger MD Cubital tunnel syndrome on [...] [facility] [address] [facility] [address] [place] [address] Christiano Geiger MD [address] [facility] [address] [place] [address] Health Maintenance Due Date Last Done Comments CT Colonography 1970 Colonoscopy 1970 Colorectal Cancer Screening 1970 FIT-DNA 1970 FIT 1970 FOBT 1970 Sigmoidoscopy 1970 Influenza Vaccine Completed 07/07/2024, , 07/15/2022, Additional history exists Procedures Procedure Name Priority Date/Time Associated Diagnosis Comments ECG 12-LEAD 03/05/2025 9:07 PM EDT from Last 3 Months Results * ECG 12-LEAD (03/05/2025 9:07 PM EDT) Anatomical Region Laterality Modality Other 03/05/2025 9:07 PM EDT Narrative 03/06/2025 9:29 [place] [address] Electrocardiograph Report Signed Patient: MATTY WADE MR#: [id number] : 1970 Acct:[id number] Age/Sex: 54 / M ADM Date: 03/05/25 Loc: [place] 221-[address]: Caden Mendez M.D. Ordering Physician: Jess Castañeda Date of Service: 03/05/25 Procedure(s): ECG 12 lead Accession Number(s): [id number] cc: The [facility] Test Date: 2025-03-05 Pat Name: MATTY WADE Department: Room: - Gender: Male Keno Writer / Runner: : 1970 Requested By: 0923 Order Number: [id number] Reading MD: RAMIRO WALLS M.D. Measurements Intervals [place] Rate: 76 P: 60 [place]: 178 QRS: 69 QRSD: 100 T: 46 QT: 406 QTc: 437 Interpretive Statements 1100 Sinus rhythm 0102 ARTIFACT PRESENT 9110 normal ECG Compared to ECG 09/23/2024 05:51:07 No significant changes Electronically Signed On 03-06-2025 9:29:34 EDT by RAMIRO WALLS M.D. Dictated By: RAMIRO WALLS Signed By: 03/06/25 0929 DD/ 06 TD/TT: Channel Specialist: Procedure Note Radiology, Radiologist, - 03/06/2025 The [place] [id number] Electrocardiograph Report Signed Patient: MATTY WADE TMR#: [id number] : 1970Acct:[id number] Age/Sex: 54 / MADM Date: 03/05/25 Loc: MS 221-[address]: Caden Mendez M.D. Ordering Physician: Jess Castañeda Date of Service: 03/05/25 Procedure(s): ECG 12 lead Accession Number(s): [id number] cc: The [facility] Test Date: 2025-03-05 Pat Name: MATTY WADE Department: Room: - Gender: Male Keno Writer / Runner: : 1970 Requested By: 0923 Order Number: [id number] Reading MD: RAMIRO WALLS M.D. Measurements Intervals [place] Rate: 76 P: 60 [place]: 178 QRS: 69 QRSD: 100 T: 46 QT: 406 QTc: 437 Interpretive Statements 1100 Sinus rhythm 0102 ARTIFACT PRESENT 9110 normal ECG Compared to ECG 09/23/2024 05:51:07 No significant changes Electronically Signed On 03-06-2025 9:29:34 EDT by RAMIRO WALLS M.D. Dictated By: RAMIRO WALLS Signed By:03/06/25928 DD/ 06 TD/TT: Channel Specialist: us Jess [facility] Final Result from Last 3 Months Insurance [employer] [place] Care Teams Hotel Administrative Assistant Relationship Specialty Start Date End Date Caden Mendez MD PCP - General Family Medicine 01/10/24
--- OUTSIDE RECORDS SUMMARY | 2025-03-06 09:55 | XMS_ITS | Clinical Summary ---
Author Organization [facility] Address [address] [place] [address] Care Team Providers Care Tax Representative Name Role Phone Caden Mendez MD Primary Care Provider [phone] Christiano Geiger MD Unavailable [phone] Trey Vallejo DPM Unavailable [phone] Allergies No known active allergies Medications gabapentin [...] = 0.6 oz pur e alcohol) monthly [facility] Utilities Answer Date Recorded In the past 12 months has [employer], [employer], or water [employer] threatened to shut off services in your [...] any time in the past 12 m [facility], were you homeless or living in a alf (including now)? No 10/08/2024 Hunger Vital Sign [...] this topic Medical Devices Implanted Type Area Chief Of Vital Statistics Device Identifier Shelf Expiration Date Model / Serial / Lot Tibial Nail Implanted:Qty: 1 on 09/24/2024 by Sandrine Field MD at [facility] Nail Right: [employer] 01/10/2034 04.043.145 S / / [id number] Screw Implanted:Qty: 1 on 09/24/2024 by Sandrine Field MD at [facility] Screw Right: [employer] [id number] 05/13/2034 04.045.042 S / / [id number] Screw Implanted:Qty: 1 on 09/24/2024 by Sandrine Field MD at [facility] Screw Right: [employer] [id number] 03/12/2034 04.045.044 S / / [id number] Screw Implanted:Qty: 1 on 09/24/2024 by Sandrine Field MD at [facility] Screw Right: [employer] [id number] 09/12/2033 04.045.046 S / / [id number] Screw Implanted:Qty: 1 on 09/24/2024 by Sandrine Field MD at [facility] Screw Right: [employer] [id number] 05/13/2034 04.045.034 S / / [id number] Insurance [facility] MEDICAID Advance Directives * Full Code (Latest Code Status on File) Date Activated Date Inactivated Comments 10/08/2024 7:17 AM 10/11/2024 4:47 PM * Full Code Date Activated Date Inactivated Comments 09/23/2024 1:50 PM 09/28/2024 8:43 PM Care Teams Tax Representative Relationship Specialty Start Date End Date Caden Mendez MD [address] [facility] [place] [address] PCP - General 09/23/24 Christiano Geiger MD [address] [place] [address] 10/11/24 Trey Vallejo DPM Address: [address] [place] [address] [place] [address] Podiatry 10/11/24
--- OUTSIDE RECORDS SUMMARY | 2025-03-06 09:55 | XMS_ITS | Encounter Summary ---
Author Organization [facility] Address [address] [place] [address] Care Team Providers Care Antenna Specialist Name Role Phone Caden Mendez MD Primary Care Provider [phone] Encounter Details Date Type Department Care Team (Late Contact Info) Description 03/11/2023 External Result Encounter [facility] External Department Unsolicited Christiano Geiger MD [address] [place] [address] Social History Tobacco Use Types Packs/Day [...] Office Visit [facility] [address] [facility] [address] [place] [phone] Christiano Geiger MD [address], [place] [address] documented as of this encounter [...] Crow Contreras M.D.03/11/2023 3:48 PM Dictation Location: [facility]03 Transcribed By: PWS 03/11/23 1548 Dictated By: Crow Contreras DO 03/11/23 1544 Signed By: <Electronically signed by Crow Contreras DO in OV> 03/11/23 1548 Narrative 03/12/2023 8:34 AM EDT [facility] Main [place] [id number] XRay Report Signed Patient: Alden Garces MR#: [id number] : 1970 Acct:[id number] Age/Sex: 52 / M ADM Date: 03/11/23 Loc: ICXD Room: Type: [facility] Attending Dr: Christiano Geiger MD Copies to: [...] 5V* Procedure Note Radiology, Radiologist, - 03/12/2023 [facility] Main [address] [address] XRay Report Signed Patient: Alden Garces TMR#: [id number] : 1970Acct:[id number] Age/Sex: 52 / MADM Date: 03/11/23 Loc: ICXD Room:Type: [facility] Attending Dr: Christiano Geiger MD Copies to: [...] Crow Contreras M.D.03/11/2023 3:48 PM Dictation Location: [place] [address] Transcribed By: [facility] 03/11/23 1548 Dictated By: Crow Contreras DO 03/11/23 1544 Signed By: <Electronically signed by Crow Contreras DO in OV> 03/11/23 1548 us Christiano Geiger MD IMG XR PROCEDURES Final Resul t documented in this encounter Visit Diagnoses Not on filedocumented in this encounter Care Teams Antenna Specialist Relationship Specialty Start Date End Date Caden Mendze MD PCP - General Family Medicine 01/10/24 documented as of this encounter
[2025-03-06] MEDS: POTASSIUM CHLORIDE 10 MEQ ER TABLET PO (10:32)
[2025-03-06] MEDS: GABAPENTIN 300 MG CAPSULE 600 MG PO (10:32)
[2025-03-06] MEDS: CARVEDILOL 25 MG TABLET PO (10:33)
[2025-03-06] MEDS: CITALOPRAM HYDROBROMIDE 20 MG TABLET 40 MG PO (10:33)
[2025-03-06] MEDS: DOXAZOSIN MESYLATE 2 MG TABLET 8 MG PO (10:33)
[2025-03-06] MEDS: PANTOPRAZOLE SODIUM 40 MG TABLET.DR PO (10:33)
[2025-03-06] MEDS: MULTIVITAMIN TABLET 1 TAB PO (10:33)
[2025-03-06] MEDS: APIXABAN 5 MG TABLET 10 MG PO (10:33)
[2025-03-06] MEDS: ASPIRIN 81 MG TABLET.DR PO (10:34)
[2025-03-06] MEDS: FUROSEMIDE 20 MG TABLET PO (10:34)
[2025-03-06] MEDS: AMLODIPINE BESYLATE 5 MG TABLET PO (10:34)
--- NOTE | 2025-03-06 11:24 | PM.CN ---
Consult Note: [facility] Data of Consult Consult date: 03/06/25 Requesting Physician: Caden Mendez MD Primary Care Provider: Caden Mendez MD Consult Narrative Reason for consult: Right leg cellulitis/DVT Narrative: Patient is a 54-year-old male with type 2 diabetes and peripheral neuropathy and history of recurrent/recalcitrant diabetic foot ulcers. Patient seen at bedside and relates to worsening pain, swelling and erythema of his right leg which prompted him to present to the emergency department yesterday. Venous Doppler demonstrated DVT of posterior tibial vein as compared to venous Doppler obtained in September 2024 which was negative for DVT. He was admitted and started on Eliquis 10 mg BID. He is also receiving Zosyn for cellulitis of his right lower extremity. Patient relates that his pain has improved. As an outpatient he has been undergoing local wound care for ulceration on plantar left hallux. He denies pain to this area but admits to chronic swelling localized to the left hallux. cc:: CC: Caden Mendez MD Review of Systems ROS Status of ROS 10 or more systems reviewed and unremarkable except as noted in history and below [facility] Medical History Prolonged emergence from general anesthesia ?T88.59XA - Other complications of anesthesia, initial encounter (ICD-10) Pain management contract signed ?Z02.89 - Encounter for other administrative examinations (ICD-10) Back pain ?M54.9 - Dorsalgia, unspecified (ICD-10) PTSD (post-traumatic stress disorder) ?F43.10 - Post-traumatic stress disorder, unspecified (ICD-10) Depression ?F32.A - Depression, unspecified (ICD-10) Dysphagia ?R13.10 - Dysphagia, unspecified (ICD-10) Uvulitis ?K12.2 - Cellulitis and abscess of mouth (ICD-10) Insomnia ?G47.00 - Insomnia, unspecified (ICD-10) Migraine ?G43.909 - Migraine, unspecified, not intractable, without status migrainosus (ICD-10) GERD (gastroesophageal reflux disease) ?K21.9 - Gastro-esophageal reflux disease without esophagitis (ICD-10) Dyspnea on exertion ?R06.09 - Other forms of dyspnea (ICD-10) Heart valve disorder ?I38 - Endocarditis, valve unspecified (ICD-10) Hypoglycemia ?E16.2 - Hypoglycemia, unspecified (ICD-10) Delayed recovery from anesthesia Chronic foot ulcer ?L97.509 - Non-pressure chronic ulcer of other part of unspecified foot with unspecified severity (ICD-10) 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 - Central serous chorioretinopathy, unspecified eye (ICD-10) Chronic pain ?G89.29 - Other chronic pain (ICD-10) Narcolepsy ?G47.419 - 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) Anxiety ?F41.9 - Anxiety disorder, unspecified (ICD-10) Upper back pain ?M54.9 - Dorsalgia, unspecified (ICD-10) Low back pain ?M54.50 - Low back pain, unspecified (ICD-10) TMJ (dislocation of temporomandibular joint) ?S03.00XA - Dislocation of jaw, unspecified side, initial encounter (ICD-10) Obesity ?E66.9 - Obesity, unspecified (ICD-10) Sleep apnea ?G47.30 - Sleep apnea, unspecified (ICD-10) Hypertension ?I10 - Essential (primary) hypertension (ICD-10) Surgical History H/O foot surgery ?Z98.890 - Other specified postprocedural states (ICD-10) H/O radiofrequency ablation (RFA) of nerve of lumbar spine ?Z98.890 - Other specified postprocedural states (ICD-10) History of fusion of cervical spine ?Z98.1 - Arthrodesis status (ICD-10) H/O inguinal hernia repair ?Z98.890 - Other specified postprocedural states (ICD-10) ?Z87.19 - Personal history of other diseases of the digestive system (ICD-10) H/O repair of rotator cuff ?Z98.890 - Other specified postprocedural states (ICD-10) History of uvulopalatopharyngoplasty ?Z98.890 - Other specified postprocedural states (ICD-10) Family History Other Family history of diabetes mellitus Family history of hypertension Family history of myocardial infarction Family history of stroke Social History Within the past year, how often did you have a drink containing alcohol: monthly or less Smoking status: Never smoker Non-prescribed substance use: cannabis (any form) Previous occupational history: unemployed Highest level of school completed/degree received: high school graduate Are you now , , , , never or living with a partner: Little interest or pleasure in doing things: more than half the days Feeling down, depressed, or hopeless: more than half the days Feel stressed/tense/nervous/anxious/difficulty sleeping: not at all Do you think of yourself as: don't know Gender Identity: male Meds Home Medications and Allergies Home Medications ?Medication ?Instructions ?Recorded ?Confirmed ?Type carvedilol 25 mg tablet 25 mg PO BID 06/14/23 03/05/25 History doxazosin 8 mg tablet 8 mg PO DAILY 06/14/23 03/05/25 History furosemide 20 mg tablet 20 mg PO DAILY 06/14/23 03/05/25 History gabapentin 600 mg tablet 600 mg PO DAILY 06/14/23 03/06/25 History glycopyrrolate 1 mg tablet 1 mg PO BID 06/14/23 03/05/25 History pantoprazole 40 mg tablet,delayed 40 mg PO DAILY 06/14/23 03/05/25 History release simvastatin 20 mg tablet 20 mg PO .qhs 06/14/23 03/05/25 History modafinil 200 mg tablet 200 mg PO BID 09/04/23 03/05/25 History potassium chloride 10 mEq 10 meq PO Q12H 09/04/23 03/05/25 History tablet,extended release amantadine HCl 100 mg tablet 100 mg PO BID 12/28/23 03/05/25 History cholecalciferol (vitamin D3) 125 5,000 unit PO DAILY 12/28/23 03/05/25 History mcg (5,000 unit) capsule multivitamin (Daily Multi-Vitamin 1 tab PO DAILY 12/28/23 03/05/25 History tablet) biotin 10 mg tablet 10 mg PO DAILY 09/19/24 03/05/25 History citalopram 40 mg tablet 40 mg PO DAILY 09/20/24 03/05/25 History testosterone cypionate 200 mg/mL 300 mg IM Q14D 09/20/24 03/05/25 History intramuscular oil amlodipine 5 mg tablet 5 mg PO QAM 03/06/25 03/06/25 History apixaban 5 mg tablet (Eliquis) 10 mg (2 x 5 mg) PO BID #60 tabs 03/06/25 Rx aspirin 81 mg tablet,delayed 81 mg PO DAILY 03/06/25 03/05/25 History release (Adult Low Dose Aspirin) cefdinir 300 mg capsule 300 mg PO BID #20 caps 03/06/25 Rx doxycycline monohydrate 100 mg 100 mg PO BID 10 days #20 caps 03/06/25 Rx capsule meclizine 25 mg tablet 25 mg PO DAILY PRN dizziness 03/06/25 03/06/25 History ondansetron HCl 4 mg tablet 8 mg PO Q8H PRN nausea and vomiting 03/06/25 03/06/25 History sildenafil 25 mg tablet 25 mg PO Q24H 03/06/25 03/06/25 History sodium, calcium, magnesium, 4.5 g PO HS 03/06/25 03/06/25 History potassium oxybates 0.5 gram/mL oral soln (Xywav) sumatriptan succinate 100 mg 100 mg PO Q2H PRN migraine headache 03/06/25 03/06/25 History tablet (Imitrex) Allergies Allergy/AdvReac Type Severity Reaction Status Date / Time No Known Drug Allergies Allergy Verified 03/05/25 16:28 Exam Narrative Exam Narrative: There is an area of erythema on the right medial leg with no open wound/ulceration. Plantar left great toe has a full-thickness ulceration with periwound hyperkeratosis and fibrogranular wound bed. Negative probe to bone. Constitutional Vital Signs, click to edit/add: Last Vital Signs Temp 98.1 F 03/06/25 09:05 Pulse 73 03/06/25 09:05 Resp 16 03/06/25 09:05 BP 127/78 03/06/25 09:05 Pulse Ox 91 L 03/06/25 09:05 O2 Del Method Room Air 03/06/25 09:05 O2 Flow Rate 2 03/06/25 04:58 FiO2 40 03/06/25 05:00 Results Labs Labs: Short CBC 03/05/25 03/06/25 Range/Units 20:10 05:18 WBC 6.7 6.8 (4.0-11.0) 10^3/uL Hgb 14.0 13.3 L (14.0-18.0) g/dL Hct 41.9 L 40.3 L (42.0-54.0) % Plt Count 156 152 (150-450) 10^3/uL BMP 03/05/25 03/06/25 20:10 05:18 Sodium 140 142 Potassium 4.1 4.4 Chloride 101 105 Carbon Dioxide 32.4 H 31.0 BUN 13.0 14.0 Creatinine 0.88 0.87 Glucose 101 112 H Calcium 10.0 9.2 Liver Function 03/05/25 Range/Units 20:10 Total Bilirubin 0.6 (0.2-1.0) mg/dL AST 19 (15-37) U/L ALT 21 (16-63) U/L Alkaline Phosphatase 244 H (46-116) U/L Albumin 3.5 (3.4-5.0) g/dL Assessment and Plan Assessment and Plan (1) DVT (deep venous thrombosis): Assessment and Plan: Medical management per hospitalist (2) Cellulitis of right leg: Assessment and Plan: Medical management per hospitalist (3) Type 2 diabetes mellitus with foot ulcer: (4) Type 2 diabetes mellitus with diabetic polyneuropathy: (5) Ulcer of left foot with muscle involvement without evidence of necrosis: Assessment and Plan: Daily dry sterile dressing changes with Santyl, 4 x 4 gauze and Kerlix Plan Patient seen at bedside. Patient may weight-bear as tolerated with surgical shoe. X-ray of his left foot was ordered as was Santyl for daily dressing changes No surgical intervention planned during this hospital stay Call with updates -patient may follow-up in wound center within 1 week from discharge
[2025-03-06 11:30] VITALS: PULSE 78; O2SAT 96
[2025-03-06] MEDS: CHOLECALCIFEROL (VITAMIN D3) 125 MCG/5,000 UNIT TABLET PO (12:03)
[2025-03-06] MEDS: AMANTADINE HCL 100 MG CAPSULE PO (12:03)
[2025-03-06] MEDS: MODAFINIL 100 MG TABLET 200 MG PO (12:04)
--- NOTE | 2025-03-06 12:26 | XR_ITS ---
[facility] [place] [id number] Patient Name: MATTY WADE MRN: [id number] date: 1970 Sex: M Assigned Patient Location: [place] Current Patient Location: [place] Accession/Order Number: [id number] Exam Date: 03/06/2025 13:16 Report Date: 03/06/2025 13:19 At the request of: CLARISA BOJORQUEZ DPJose Eduardo Procedure: XR foot LT min 3V XR foot LT min 3V 03/06/2025 12:56 PM SIGNS AND SYMPTOMS: ^hallux ulcer ^Y PROTOCOL: Frontal, lateral, and oblique radiographs of the left foot COMPARISON: None FINDINGS: There is subcutaneous emphysema or soft tissue swelling along the great toe centered at the interphalangeal joint. There is accompanying osteopenia along the interphalangeal joint. This is suspicious for cellulitis and osteomyelitis. There is no fracture or dislocation. There is Achilles surface calcaneal spurring. Postop changes are noted in the distal tibia and fibula. There is a 4 mm radiodense linear foreign body in the plantar soft tissues of the heel. XR/XR foot LT min 3V IMPRESSION: There is subcutaneous emphysema or soft tissue swelling along the great toe centered at the interphalangeal joint. There is accompanying osteopenia along the interphalangeal joint. This is suspicious for cellulitis and osteomyelitis. There is a 4 mm radiodense linear foreign body in the plantar soft tissues of the heel. Impression dictated by: Francis Irving M.D. 03/06/2025 1:19 PM Dictation Location: [place] [address] Electronically authenticated by: [id number] Y Date: 03/06/2025 13:19
--- NOTE | 2025-03-07 13:29 | CM.DCFOLLOWU ---
1st attempt 03/07/25, no answer
[2025-03-07 14:34] LABS: A. calcoaceticus-baumannii Cpx NOT DETECTED (NOT DETECTE); Bacteroides fragilis NOT DETECTED (NOT DETECTE); Candida albicans NOT DETECTED (NOT DETECTE); Candida auris NOT DETECTED (NOT DETECTE); Candida glabrata NOT DETECTED (NOT DETECTE); Candida krusei NOT DETECTED (NOT DETECTE); Candida parapsilosis NOT DETECTED (NOT DETECTE); Candida tropicalis NOT DETECTED (NOT DETECTE); Cryptococcus neoformans/gattii NOT DETECTED (NOT DETECTE); Enterobacter cloacae complex NOT DETECTED (NOT DETECTE); Enterobacterales NOT DETECTED (NOT DETECTE); Enterococcus faecalis NOT DETECTED (NOT DETECTE); Enterococcus faecium NOT DETECTED (NOT DETECTE); Haemophilus influenzae NOT DETECTED (NOT DETECTE); Klebsiella aerogenes NOT DETECTED (NOT DETECTE); Klebsiella pneumoniae group NOT DETECTED (NOT DETECTE); Listeria monocytogenes NOT DETECTED (NOT DETECTE); Neisseria meningitidis NOT DETECTED (NOT DETECTE); Proteus spp. NOT DETECTED (NOT DETECTE); Pseudomonas aeruginosa NOT DETECTED (NOT DETECTE); Salmonella spp. NOT DETECTED (NOT DETECTE); Serratia marcescens NOT DETECTED (NOT DETECTE); Staphylococcus epidermidis NOT DETECTED (NOT DETECTE); Staphylococcus lugdunensis NOT DETECTED (NOT DETECTE); Staphylococcus spp. NOT DETECTED (NOT DETECTE); Stenotrophomonas maltophilia NOT DETECTED (NOT DETECTE); Streptococcus agalactiae NOT DETECTED (NOT DETECTE); Streptococcus pneumoniae NOT DETECTED (NOT DETECTE); Streptococcus pyogenes NOT DETECTED (NOT DETECTE); Streptococcus spp. NOT DETECTED (NOT DETECTE)
[2025-03-07 15:48] LABS: Source Blood
--- NOTE | 2025-03-12 14:27 | CM.DCFOLLOWU ---
03/12-3rd attempt. No answer
== END 2025-03-06 14:10 | disposition home or self-care (01) ==
LOC: ER 20:44 → MS 03-06 06:48
PROVIDERS: Physician Assistant; Registered Nurse; Admitting Provider Family Medicine; Emergency Provider Emergency Medicine; PCP Family Medicine; Visit Provider Family Medicine
DX: I82.441 Acute embolism and thrombosis of right tibial vein (principal); M79.604 Pain in right leg; L03.115 Cellulitis of right lower limb; Z98.1 Arthrodesis status; E11.42 Type 2 diabetes mellitus with diabetic polyneuropathy; E11.621 Type 2 diabetes mellitus with foot ulcer; L97.525 Non-pressure chronic ulcer of other part of left foot with muscle involvement without evidence of necrosis; E11.628 Type 2 diabetes mellitus with other skin complications
CPT/HCPCS: 36415; 73610; 73630; 80048; 80053; 83605; 83880; 84484; 85025; 85027; 85610; 85730; 87040; 87077; 87150; 93005; 93971; 94660; 94761; 96365; 96366; 96375; 99285; G0378; J2270; J2405; J2543; Q0177

== ENCOUNTER 2025-04-10 13:13 | Outpatient (OUT) | payer MEDICAID, SELFPAY ==
--- OUTSIDE RECORDS SUMMARY | 2025-04-04 11:20 | XMS_ITS | Encounter Summary ---
Author Organization [facility] Address [address] [facility] [place] [address] Care Team Providers Care Mail Handler Equipment Operator Name Role Phone Caden Mendez MD Primary Care Provider [phone] Reason for Referral * Medications - Closed Specialty Diagnoses / Procedures Referred By Tangela muñoz Referred To Contact Diagnoses Narcolepsy cataplexy syndrome (HCC) Christiano Geiger MD [address] [place] [address] Phone: tel: fax: Referral ID Status Reason Start Date Expiration Date Visits Re quested Visits Authorized [id number] Closed 1 1 Reason for Visit * Reason Comments Narcolepsy Sleep Apnea Encounter Details Date Type Department Care Team (Late Contact Info) Description 04/04/2025 11:20 AM EDT Office Visit [facility] [address] [address] Christiano Geiger MD [address] [place] [address] [id number] Narcolepsy cataplexy syndrome (HCC) (Primary Dx); Excessive daytime sleepiness; Cervical disc disorder; Intractable chronic migraine with aura with status migrainosus Social History Tobacco Use Types Packs/Day Years [...] on file documented as of this encounter Last Filed Vital Signs Vital Sign Reading Time Taken Comments Blood Pressure 114/90 04/04/2025 11:03 AM EDT Pulse 114 04/04/2025 11:03 AM EDT Temperature - - Respiratory Rate - - Oxygen Saturation - - Inhaled Oxygen Concentration - - Weight 120 kg (265 lb) 04/04/2025 11:03 AM EDT Height 188 cm (6' 2 ) 04/04/2025 11:03 AM EDT Body Mass Index 34.02 04/04/2025 11:03 AM EDT documented in this encounter Progress Notes * Christiano Geiger MD - 04/04/2025 11:20 AM EDT Images from the original note were not included. Subjective Alden Garces is a 54 y.o. male who presents for Narcolepsy and Sleep Apnea History of Present Illness The patient presents for evaluation of narcolepsy. He reports a general feeling of unwellness, which he attributes to missing some of his medications.His sleep medication, Xywav, is effective 8 out of 10 times when taken. However, during periods of high stress, its efficacy seems to diminish. He is considering increasing the dosage on particularlydifficult nights. He is due for a refill of Xywav as it has . He describes the taste of the medication as unpleasant, likening it to a salty, bitter flavor. To make it more palatable, he mixesit with orange juice and water. He recalls an incident where he woke up in the middle of the night to use the bathroom but was so exhausted that he had to crawl to the bathroom as he could not stand. He also mentions that the time it takes for the medication to take effect varies, sometimes taking 35 minutes and other times up rupali hour and a half. He notes that when he is relaxed and ready to sleep, the experience is not unpleasant. He has tried various treatments for his condition, including exotic approaches from other countries. He believes that the medication is helping him establish a regular sleep schedule. He estimates that he sleeps well 8 out of 10 nights, which is a significant improvement from his previous state where he only slept well 1 out of 2 days on average per month. He occasionally falls asleep before taking the medication. He recalls instances where he would go 2 to 3 nights without sleep, leading to extreme fatigue and accidents such as falls resulting in broken legs and ankles. He also mentions a near-miss incident where he almost fell into a stove while cooking. He is currently taking Xywav 3 mg twice daily. MEDICATIONS CURRENT MEDS: Xywav 3 g Oral Twice daily Review of Systems Const: Denies appetite change, [...] positive findings, which shall supersede the foregoing. Objective Blood pressure 114/90, pulse (!) 114, height 6' 2 , weight 265 lb. Physical Exam Vital Signs: Weight: 265 lbs GENERAL EXAMINATION Appearance: in no acute distress, [...] equal, round, and reactive to light and accommodation,both directly and consensually. Visual mae were full [...] in all four extremities, including at least general dentist/owner, finger abductors, biceps, triceps, deltoid, toe flexors [...] and spasticity are not evident. Arm swing isnormal. Toe, heel, and tandem walking are performed without difficulty. Musculoskeletal: Trigger-point tenderness was absent. There is no spasm of the trapezii or paraspinals. Results Assessment & Plan 1. Narcolepsy. He reports that his current dose of Xywav is effective approximately 8 out of 10 times, but he experiences difficulty sleeping when stressed. He has been advised to increase his Xywav dosage to 3.375mg. A prescription refill for Xywav will be sent to [facility]. If symptomspersist or worsen, further adjustments to the medication regimen will be considered. 2. The patient was counseled on the risks of stroke, Ml, and sudden with PATEL, along with the need for compliance with CPAP/BiPAP treatment. 3. Migraine headaches, will use Imitrex 100 mg po prn CABRAL 4. Vertigo of central origin and neck issues Physical therapy will be ordered for presumed cervicalradiculopathy to see if we can increase mobility, decrease pain and improve neurological function of the upper extremities. Follow-up The patient will follow up in 3 months. 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
--- OUTSIDE RECORDS SUMMARY | 2025-04-10 13:15 | XMS_ITS | Encounter Summary ---
Author Organization [facility] Address [address] [facility] [place] [address] Care Team Providers Care Marble Installer Name Role Phone Caden eMndez MD Primary Care Provider [phone] Encounter Details Date Type Department Care Team ([facility] Contact Info) Description 03/24/2023 Abstract [facility] [address] [place] [phone] Christiano Geiger MD [address] [place] [address] Social History Tobacco Use Types Packs/Day Years [...] Upcoming Encounters Date Type Department Care Team ([facility] Contact Info) Description 06/27/2025 11:00 AM EDT [facility] [address] [facility] [address] [place] [phone] Christiano Geiger MD [address] [place] [address] documented as of this encounter Visit Diagnoses Not on filedocumented in this encounter Care Teams Marble Installer Relationship Specialty Start Date End Date Caden Mendez MD PCP - General Family Medicine 01/10/24 documented as of this encounter
--- OUTSIDE RECORDS SUMMARY | 2025-04-10 13:15 | XMS_ITS | Clinical Summary ---
Author Organization [facility] Address [address] [place] [address] Care Team Providers Care Medical Assistant Per Diem Name Role Phone Caden Mendez MD Primary Care Provider [phone] Allergies No known active allergies Medications traMADOL [...] 2019 Shingrix Vaccine (1 of 2) 2019 Influenza Vaccine (#1) 2025 Procedures Procedure Name Priority Date/Time Associated Diagnosis Comments COMPREHENSIVE METABOLIC PANEL Routine 05/17/2012 1:47 PM EDT Myalgia from Last 3 Months or Most Recently Relevant to Health Maintenance Results * (ABNORMAL) COMP METABOLIC PANEL (05/17/2012 1:47 PM EDT) Protein, Total 7.5 6.0 - 8.4 g/dL [facility] Albumin 4.8 3.5 - 5.0 g/dL [facility] Calcium 9.6 8.5 - 10.5 mg/dL [facility] Bilirubin, Total 0.3 0.0 - 1.5 mg/dL [facility] Alkaline Phosphatase 70 40 - 150 U/L [facility] AST 20 7 - 40 U/L [facility] Glucose 54(L) 65 - 100 mg/dL [facility] BUN 25 10 - 25 mg/dL [facility] Creatinine 1.00 0.70 - 1.40 mg/dL [facility] Sodium 143 135 - 146 mmol/L [facility] Potassium 3.5 3.5 - 5.0 mmol/L [facility] Chloride 104 98 - 110 mmol/L [facility] CO2 28 23 - 32 mmol/L [facility] Anion Gap 11 0 - 15 mmol/L [facility] ALT 30 5 - 50 U/L [facility] eGFR- >60 [facility] eGFR-All Other Races >60 . [facility] Comment: eGFR (Estimated GFR) Units [...] EDT Joan Smith MD LABORATORY Final Result [facility] [address] [facility] [place] [address] from Last 3 Months or Most Recently Relevant to Health Maintenance Insurance [employer] [place] Care Teams Medical Assistant Per Diem Relationship Specialty Start Date End Date Caden Mendez MD PCP - General Family Medicine 03/08/12
--- OUTSIDE RECORDS SUMMARY | 2025-04-10 13:15 | XMS_ITS | Encounter Summary ---
Author Organization [facility] Address [address] [facility] [place] [address] Care Team Providers Care Spray Painting Machine Operator Name Role Phone Caden Mendez MD Primary Care Provider [phone] Encounter Details Date Type Department Care Team ([facility] Contact Info) Description 04/04/2025 Bamboo flowsheet [facility] [address] [place] [phone] Christiano Geiger MD [address] [place] [address] [phone] Social History Tobacco Use Types Packs/Day Years [...] Department Care Team (Late Contact Info) Description 06/27/2025 11:00 AM EDT Office Visit [facility] [address] [facility] [address] [place] [address] Christiano Geiger MD [address] [place] [address] [phone] documented as of this encounter Visit Diagnoses Not on filedocumented in this encounter Care Teams Spray Painting Machine Operator Relationship Specialty Start Date End Date Caden Mendez MD PCP - General Family Medicine 01/10/24 documented as of this encounter
--- OUTSIDE RECORDS SUMMARY | 2025-04-10 13:15 | XMS_ITS | Clinical Summary ---
Author Organization [facility] Address [address] [place] [address] Care Team Providers Care Aircraft Time Clerk Name Role Phone Caden Mendez MD Primary Care Provider [phone] Christiano Geiger MD Unavailable [phone] Trey Vallejo DPM Unavailable [phone] Allergies No known active allergies Medications gabapentin [...] = 0.6 oz pur e alcohol) monthly [facility] Utilities Answer Date Recorded In the past 12 months has [employer], [employer], or water [employer] threatened to shut off services in your [...] any time in the past 12 m [facility], were you homeless or living in a long-term (including now)? No 10/08/2024 Hunger Vital Sign [...] season) 2024 08/18/2021, 12/24/2020, 12/02/2020 Influenza Vaccine (#1) 2025 , 07/06/2023, 07/15/2022, Additional history exists HIB Vaccines Aged [...] this topic Medical Devices Implanted Type Area Dipper And Drier Device Identifier Shelf Expiration Date Model / Serial / Lot Tibial Nail Implanted:Qty: 1 on 09/24/2024 by Sandrine Field MD at [facility] Nail Right: Tibia [employer]ynthes 01/10/2034 04.043.145 S / / [id number] Screw Implanted:Qty: 1 on 09/24/2024 by Sandrine Field MD at [facility] Screw Right: Tibia [employer] [id number] 05/13/2034 04.045.042 S / / [id number] Screw Implanted:Qty: 1 on 09/24/2024 by Sandrine Field MD at [facility] Screw Right: Tibia [employer] [id number] 03/12/2034 04.045.044 S / / [id number] Screw Implanted:Qty: 1 on 09/24/2024 by Sandrine Field MD at [facility] Screw Right: Tibia [employer] [id number] 09/12/2033 04.045.046 S / / [id number] Screw Implanted:Qty: 1 on 09/24/2024 by Sandrine Field MD at [facility] Screw Right: Tibia [employer] [id number] 05/13/2034 04.045.034 S / / [id number] Insurance RO[address] [place] [phone] [facility] MEDICAID Advance Directives * Full Code (Latest Code Status on File) Date Activated Date Inactivated Comments 10/08/2024 7:17 AM 10/11/2024 4:47 PM * Full Code Date Activated Date Inactivated Comments 09/23/2024 1:50 PM 09/28/2024 8:43 PM Care Teams Aircraft Time Clerk Relationship Specialty Start Date End Date Caden Mendez MD [address] [facility] [place] [address] PCP - General 09/23/24 Christiano Geiger MD [address] [place] [phone] 10/11/24 Trey Vallejo DPM Address: [address] [place] [address] [place] [address] Podiatry 10/11/24
--- OUTSIDE RECORDS SUMMARY | 2025-04-10 13:15 | XMS_ITS | Encounter Summary ---
Author Organization [facility] Address [address] [place] [address] Care Team Providers Care Mileage Clerk Name Role Phone Caden Mendez MD Primary Care Provider [phone] Encounter Details Date Type Department Care Team (Late st Contact Info) Description 03/11/2023 External Result Encounter [facility] External Department Unsolicited Christiano Geiger MD [address] [place] [phone] Social History Tobacco Use Types Packs/Day [...] Description 06/27/2025 11:00 AM EDT Office Visit [facility] [address] [facility] [address] [place] [phone] Christiano Geiger MD [address] [place] [address] [phone] documented as of this encounter Procedures Procedure [...] Crow Contreras M.D.03/11/2023 3:48 PM Dictation Location: [facility]03 Transcribed By: PWS 03/11/23 1548 Dictated By: Crow Contreras DO 03/11/23 1544 Signed By: <Electronically signed by Crow Contreras DO in OV> 03/11/23 1548 Narrative 03/12/2023 8:34 AM EDT [facility] Main [place] [id number] XRay Report Signed Patient: Alden Garces MR#: [id number] 97 : 1970 Acct:[id number] Age/Sex: 52 / M ADM Date: 03/11/23 Loc: ICXD Room: Type: [facility] Attending Dr: Christiano Geiger MD Copies to: [...] 5V* Procedure Note Radiology, Radiologist, - 03/12/2023 [facility] Main [place] [id number] XRay Report Signed Patient: Alden Garces TMR#: [id number] : 1970Acct:[id number] Age/Sex: 52 / MADM Date: 03/11/23 Loc: ICXD Room:Type: [facility] Attending Dr: Christiano Geiger MD Copies to: [...] Crow Contreras M.D.03/11/2023 3:48 PM Dictation Location: [place] [address] Transcribed By: [facility] 03/11/23 1548 Dictated By: Crow Contreras DO 03/11/23 1544 Signed By: <Electronically signed by Crow Contreras DO in OV> 03/11/23 1548 us Christiano Geiger MD IMG XR PROCEDURES Final Resul t documented in this encounter Visit Diagnoses Not on filedocumented in this encounter Care Teams Mileage Clerk Relationship Specialty Start Date End Date Caden Mendez MD PCP - General Family Medicine 01/10/24 documented as of this encounter
--- OUTSIDE RECORDS SUMMARY | 2025-04-10 13:15 | XMS_ITS | Encounter Summary ---
Author Organization [facility] Address [address] [facility] [place] [address] Care Team Providers Care Cut Off Sawyer Name Role Phone Caden Mendez MD Primary Care Provider [phone] Encounter Details Date Type Department Care Team (Late st Contact Info) Description 04/02/2025 Telephone [facility] [address] [facility] [address] [place] [phone] Christiano Geiger MD [address] [facility] [address] [phone] Social History Tobacco Use Types Packs/Day Years [...] on file documented as of this encounter Miscellaneous Notes * Telephone Encounter - Heather Miguel NP - 04/04/2025 5:51 PM EDT I called and spoke with pharmacist to refill prescription for 3 months and 1 refill. He should be good for 6 months. * Telephone Encounter - Heather Miguel NP - 04/04/2025 4:18 PM EDT Giulia leaves voicemail. If you do not mind to send that prescription refill to our pharmacy, that would be great. Our phone number is [phone], option 3. And then option for would get you directly to a pharmacist. Our fax number is [phone] and we are open Wednesday through Wednesday, 7AM to 8PM central standard time. * Telephone Encounter - Nita Raj - 04/02/2025 10:51 AM EDT [facility] pharmacy left message requesting refill of Xywav. documented in this encounter Plan of Treatment Upcoming Encounters Date Type Department Care Team (Late st Contact Info) Description 06/27/2025 11:00 AM EDT Office Visit [facility] Saurabh [facility] [address] [facility] [address] [place] [address] Christiano Geiger MD [address] [address] documented as of this encounter Visit Diagnoses Not on filedocumented in this encounter Care Teams Cut Off Sawyer Relationship Specialty Start Date End Date Caden Mendez MD PCP - General Family Medicine 01/10/24 documented as of this encounter
--- OUTSIDE RECORDS SUMMARY | 2025-04-10 13:15 | XMS_ITS | Encounter Summary ---
Author Organization [facility] Address [address] [facility] [place] [address] Care Team Providers Care Agricultural Equipment Test Engineer Name Role Phone Caden Mendez MD Primary Care Provider [phone] Encounter Details Date Type Department Care Team ([facility] Contact Info) Description 07/17/2023 Abstract [facility]EWEL[facility] Castro [facility] [address] [place] [phone] Christiano Geiger MD [address] [facility] [address] [place] [address] Social History Tobacco Use Types Packs/Day Years [...] Office Visit FLORIDAClotilde Saurabh Neurology [address] [facility] [address] [place] [phone] Christiano Geiger MD [address] [place] [address] documented as of this encounter Visit Diagnoses Not on filedocumented in this encounter Care Teams Agricultural Equipment Test Engineer Relationship Specialty Start Date End Date Caden Mendez MD PCP - General Family Medicine 01/10/24 documented as of this encounter
--- OUTSIDE RECORDS SUMMARY | 2025-04-10 13:15 | XMS_ITS | Clinical Summary ---
Author Organization [facility] Healthcare Address [address] [place] [address] Care Team Providers Care Pattern Painter Name Role Phone Caden Mendez MD Primary Care Provider [phone] Allergies Active Allergy Reactions Criticality Noted Date [...] at the same time Active HYDROcodone-aceta minophen ([place]) 5-325 MG tablet 03/20/20 24 Active cholecalciferol (Vitamin D-3) 125 MCG (5000 UT) capsule 03/15/20 24 Active senna (Senokot) 8.6 MG tablet 03/15/20 24 Active ondansetron ODT (Zofran-ODT) 4 MG disintegrating tablet 03/15/20 24 Active amantadine (Symmetrel) 100 MG tabletIndications :Excessive daytime sleepiness,Primar y insomnia Take 1 tablet (100 mg) by mouth in the morning and at noon 180 tablet 3 04/10/20 24 Active hydrOXYzine pamoate (Vistaril) 25 MG capsuleIndication [...] and at noon 180 tablet 01/04/20 25 Active oxybates, calcium, magnesium, potassium and sodium, (Xywav) 500 MG/ML solutionIndicatio ns:Narcolepsy cataplexy syndrome (HCC) Take 3.75 g by mouth at bedtime 225 mL 2 04/04/20 25 025 Active Active Problems Problem Noted Date Diagnosed Date Cellulitis of left lower extremity 10/08/2024 Open wound of left great toe 10/08/2024 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 [address] [place] [address] Christiano Geiger MD 03/05/2025 Clinisync Result Encounter [facility] External Department Unsolicited Jess Castañeda PA from Last 3 Months Family History Medical [...] Mass Index 34.02 04/04/2025 11:03 AM EDT Plan of Treatment Upcoming Encounters Date Type Department Care Team (Late st Contact Info) Description 06/27/2025 11:00 AM EDT Office Visit [facility] S[facility]abh [facility] [address] [facility] [address] [place] [phone] Christiano Geiger MD [address] [facility] [address] [place] [address] Health Maintenance Due Date Last Done Comments CT Colonography 1970 Colonoscopy 1970 Colorectal Cancer Screening 1970 FIT-DNA 1970 FIT 1970 FOBT 1970 Sigmoidoscopy 1970 Influenza Vaccine (#1) 2025 , 07/06/2023, 07/15/2022, Additional history exists Procedures Procedure Name Priority Date/Time Associated Diagnosis Comments ECG 12-LEAD 03/05/2025 9:07 PM EDT BLOOD CULTURE ID 2 PANEL Routine 03/05/2025 8:20 PM EDT from Last 3 Months Results * ECG 12-LEAD (03/05/2025 9:07 PM EDT) Anatomical Region Laterality Modality Other 03/05/2025 9:07 PM EDT Narrative 03/06/2025 9:29 AM EDT The [address] [address] Electrocardiograph Report Signed Patient: MATTY WADE MR#: [id number] : 1970 Acct:[id number] Age/Sex: 54 / M ADM Date: 03/05/25 Loc: [place] 221-[address]: Caden Mendez M.D. Ordering Physician: Jess Castañeda Date of Service: 03/05/25 Procedure(s): ECG 12 lead Accession Number(s): [id number] cc: [facility] Test Date: 2025-03-05 Pat Name: MATTY WADE Department: Room: - Gender: Male Litigation Counsel: : 1970 Requested By: 0923 Order Number: [id number] Reading MD: RAMIRO WALLS M.D. Measurements Intervals [place] Rate: 76 P: 60 IN: 178 QRS: 69 QRSD: 100 T: 46 QT: 406 QTc: 437 Interpretive Statements 1100 Sinus rhythm 0102 ARTIFACT PRESENT 9110 normal ECG Compared to ECG 09/23/2024 05:51:07 No significant changes Electronically Signed On 03-06-2025 9:29:34 EDT by RAMIRO WALLS M.D. Dictated By: RAMIRO WALLS Signed By: 03/06/25928 DD/ 06 TD/TT: Hand Funnel Coater: Procedure Note Radiology, Radiologist, - 03/06/[address] [address] Electrocardiograph Report Signed Patient: MATTY WADE TMR#: [id number] : 1970Acct:[id number] Age/Sex: 54 / MADM Date: 03/05/25 Loc: [place] 221-[address]: Caden Mendez M.D. Ordering Physician: Jess Castañeda Date of Service: 03/05/25 Procedure(s): ECG 12 lead Accession Number(s): [id number] cc: [facility] Test Date: 2025-03-05 Pat Name: MATTY WADE Department: Room: - Gender: Male Litigation Counsel: : 1970 Requested By: 0923 Order Number: [id number] Reading MD: RAMIRO WALLS M.D. Measurements Intervals [place] Rate: 76 P: 60 IN: 178 QRS: 69 QRSD: 100 T: 46 QT: 406 QTc: 437 Interpretive Statements 1100 Sinus rhythm 0102 ARTIFACT PRESENT 9110 normal ECG Compared to ECG 09/23/2024 05:51:07 No significant changes Electronically Signed On 03-06-2025 9:29:34 EDT by RAMIRO WALLS M.D. Dictated By: RAMIRO WALLS Signed By:03/06/25928 DD/ 06 TD/TT: Hand Funnel Coater: Jess HOYOS [facility] Final Result * BLOOD CULTURE ID 2 PANEL (03/05/2025 8:20 PM EDT) CTX-M NOT APPLICABLE NOT DETECTE TB[facility] IMP NOT APPLICABLE NOT DETECTE TBH KPC NOT APPLICABLE NOT DETECTE TBH MCR-1 NOT APPLICABLE NOT DETECTE TBH MECA/C NOT APPLICABLE NOT DETECTE TBH MECA/C AND MREJ (MRSA) NOT APPLICABLE NOT DETECTE TBH NDM NOT APPLICABLE NOT DETECTE TBH OXA-48-LIKE NOT APPLICABLE NOT DETECTE TBH GENEVIEVE/B NOT APPLICABLE NOT DETECTE TBH VIM NOT APPLICABLE NOT DETECTE TBH SOURCE Blood TBH ENTEROCOCCUS FAECALIS NOT DETECTED NOT DETECTE TBH ENTEROCOCCUS FAECIUM NOT DETECTED NOT DETECTE TBH LISTERIA MONOCYTOGENES NOT DETECTED NOT DETECTE TBH STAPHYLOCOCCUS SPP. NOT DETECTED NOT DETECTE TBH STAPHYLOCOCCUS AUREUS NOT DETECTED NOT DETECTE TBH STAPHYLOCOCCUS EPIDERMIDIS NOT DETECTED NOT DETECTE TBH STAPHYLOCOCCUS LUGDUNENSIS NOT DETECTED NOT DETECTE TBH STREPTOCOCCUS SPP. NOT DETECTED NOT DETECTE TBH STREPTOCOCCUS AGALACTIAE NOT DETECTED NOT DETECTE TBH STREPTOCOCCUS PNEUMONIAE NOT DETECTED NOT DETECTE TBH STREPTOCOCCUS PYOGENES NOT DETECTED NOT DETECTE TBH A. CALCOACETICUS-BAUMA NNII CPX NOT DETECTED NOT DETECTE TBH BACTEROIDES FRAGILIS NOT DETECTED NOT DETECTE TBH ENTEROBACTERALES NOT DETECTED NOT DETECTE TBH ENTEROBACTER CLOACAE COMPLEX NOT DETECTED NOT DETECTE TBH ESCHERICHIA COLI NOT DETECTED NOT DETECTE TBH KLEBSIELLA AEROGENES NOT DETECTED NOT DETECTE TBH KLEBSIELLA OXYTOCA NOT DETECTED NOT DETECTE TBH KLEBSIELLA PNEUMONIAE GROUP NOT DETECTED NOT DETECTE TBH PROTEUS SPP. NOT DETECTED NOT DETECTE TBH SALMONELLA SPP. NOT DETECTED NOT DETECTE TBH SERRATIA MARCESCENS NOT DETECTED NOT DETECTE TBH HAEMOPHILUS INFLUENZAE NOT DETECTED NOT DETECTE TBH NEISSERIA MENINGITIDIS NOT DETECTED NOT DETECTE TBH PSEUDOMONAS AERUGINOSA NOT DETECTED NOT DETECTE TBH TBH STENOTROPHOMONAS MALTOPHILIA NOT DETECTED NOT DETECTE TBH ELKIN ALBICANS NOT DETECTED NOT DETECTE TBH ELKIN AURIS NOT DETECTED NOT DETECTE TBH ELKIN GLABRATA NOT DETECTED NOT DETECTE TBH ELKIN KRUSEI NOT DETECTED NOT DETECTE TBH ELKIN PARAPSILOSIS NOT DETECTED NOT DETECTE TBH ELKIN TROPICALIS NOT DETECTED NOT DETECTE TBH CRYPTOCOCCUS NEOFORMANS/GATTII NOT DETECTED NOT DETECTE TBH 03/05/2025 8:20 PM EDT 03/07/2025 2:31 PM EDT Narrative [facility] - 03/07/2025 3:48 PM EDT Jess HOYOS LAB BLOOD ORDERABLES Final Resul t [facility] TB from Last 3 Months Insurance [facility] MEDICAID [place] Care Teams Pattern Painter Relationship Specialty Start Date End Date Caden Mendez MD PCP - General Family Medicine 01/10/24
--- OUTSIDE RECORDS SUMMARY | 2025-04-10 13:15 | XMS_ITS | Encounter Summary ---
Author Organization [facility] Address [address] [facility] [place] [address] Care Team Providers Care 2Nd Grade Teacher Name Role Phone Caden Mendez MD Primary Care Provider [phone] Encounter Details Date Type Department Care Team (Latest Contact Info) Description 04/04/2025 Travel Social History Tobacco Use Types Packs/Day Years [...] Office Visit [facility]EWELS Wiley [facility] [address] [facility] [address] [place] [phone] Christiano Geiger MD [address] [facility] [address] [place] [address] documented as of this encounter Visit Diagnoses Not on filedocumented in this encounter Care Teams 2Nd Grade Teacher Relationship Specialty Start Date End Date Caden Mendez MD PCP - General Family Medicine 01/10/24 documented as of this encounter
--- NOTE | 2025-04-10 13:39 | CT_ITS ---
The [address] [address] Patient Name: MATTY WADE MRN: [id number] date: 1970 Sex: M Assigned Patient Location: CT Current Patient Location: CT Accession/Order Number: [id number] Exam Date: 04/10/2025 15:45 Report Date: 04/10/2025 15:56 At the request of: VENUS JAEGER MD Procedure: CT ankle RT wo con CT right ankle WITHOUT CONTRAST : CLINICAL HISTORY: Chronic right ankle pain for 6 months COMPARISON: None TECHNIQUE: Spiral axial unenhanced images were obtained through the right ankle. Sagittal, coronal reconstructions were also reviewed. This CT exam was performed using one or more following dose reduction techniques: Automated exposure control, adjustment of the mA and/or kV according to patient size, or use of iterative reconstruction technique. FINDINGS: Bones are grossly demineralized. There appears to be incomplete healing fractures of the distal tibia and fibula with hardware involving the distal tibia. Both fractures appear comminuted. There is surrounding callus formation involving both fractures. Ankle mortise appears intact with degenerative change. Presumed remote injury involving the lateral malleolus. Degenerative changes are seen involving the visualized hindfoot and midfoot. No significant soft tissue swelling is present. No fluid collection to suggest abscess.. CT/CT ankle RT wo con IMPRESSION: INCOMPLETE HEALING COMMINUTED FRACTURES INVOLVING THE DISTAL TIBIA AND FIBULA WITH HARDWARE INVOLVING THE DISTAL TIBIA. NO ACUTE BONY PROCESS IS SEEN. DEGENERATIVE CHANGES INVOLVING THE ANKLE MORTISE WITH PRESUMED REMOTE TRAUMA INVOLVING THE LATERAL MALLEOLUS. Impression dictated by: Bora Gomez Jr., D.O. 04/10/2025 3:56 PM Dictation Location: [employer] Electronically authenticated by: [id number] Y Date: 04/10/2025 15:56
== END 2025-04-10 13:14 | disposition home or self-care (01) ==
LOC: CT 13:13
PROVIDERS: PCP Family Medicine; Visit Provider Family Medicine
DX: M25.571 Pain in right ankle and joints of right foot (principal); S82.391G Other fracture of lower end of right tibia, subsequent encounter for closed fracture with delayed healing; S89.391 Other physeal fracture of lower end of right fibula
CPT/HCPCS: 73700

== ENCOUNTER 2025-04-24 11:16 | Outpatient (OUT) | payer MEDICAID, SELFPAY ==
[2025-04-24 11:46] LABS: Hematocrit 43.3 % (42.0-54.0); Hemoglobin 14.5 g/dL (14.0-18.0); Immature Granulocytes Abs Auto 0.08 10^3/uL (0.00-0.03); Immature Granulocytes Pct Auto 1.1 % (0.0-0.5); Lymphocytes Absolute Auto 1.0 10^3/uL (1.2-3.8); Mean Corpuscular HGB Conc 33.5 g/dL (29.9-35.2); Mean Corpuscular Hemoglobin 30.0 pg (25.9-34.0); Mean Corpuscular Volume 89.6 fL (80.0-94.0); Platelet Count 202 10^3/uL (150-450); Red Blood Count 4.83 10^6/uL (4.70-6.10); White Blood Count 7.6 10^3/uL (4.0-11.0)
[2025-04-24 12:04] LABS: Alanine Aminotransferase 21 U/L (16-63); Albumin Globulin Ratio 0.8; Albumin Level 3.5 g/dL (3.4-5.0); Alkaline Phosphatase 222 U/L (46-116); Anion Gap 7.5; Aspartate Amino Transferase 14 U/L (15-37); Blood Urea Nitrogen 11.0 mg/dL (7.0-18.0); Calcium 9.2 mg/dL (8.5-10.1); Carbon Dioxide 29.3 mmol/L (21.0-32.0); Chloride 103 mmol/L (98-107); Estimated GFR (African America >60 (>=60 mL/min/1.73m^2); Estimated GFR (Non-African Ame >60 (>=60 mL/min/1.73m^2); Globulin 4.4 g/dL; Glucose 105 mg/dL (74-106); Potassium 3.8 mmol/L (3.5-5.1); Sodium 136 mmol/L (136-145); Total Protein 7.9 g/dL (6.4-8.2)
== END 2025-04-24 11:17 | disposition home or self-care (01) ==
LOC: LAB 11:17
PROVIDERS: PCP Family Medicine; Visit Provider Family Medicine
DX: I10 Essential (primary) hypertension (principal)
CPT/HCPCS: 36415; 80053; 84403; 85025

== ENCOUNTER 2025-05-07 11:26 | Outpatient (OUT) | payer MEDICAID, SELFPAY ==
--- NOTE | 2025-05-07 | XR_ITS ---
The [address] [address] Patient Name: MATTY WADE MRN: [id number] date: 1970 Sex: M Assigned Patient Location: [facility] Current Patient Location: [facility] Accession/Order Number: [id number] Exam Date: 05/07/2025 11:50 Report Date: 05/07/2025 12:43 At the request of: OG ALLEN DO Procedure: XR tibia fibula RT 2V 2 views right tibia and fibula plain film HISTORY: Right lower extremity pain. Fell. COMPARISON: 09/23/2024 ACUTE FINDINGS: Healing of distal tibia and fibular fracture. Callus formation. DEGENERATIVE CHANGE: Similar SOFT TISSUE FINDINGS: Unremarkable JOINT EFFUSION: None POSTOP CHANGES: Femoral intramedullary fixation. No hardware complication BONE MINERALIZATION: Adequate XR/XR tibia fibula RT 2V IMPRESSION: No acute fracture. Healing fracture with stable alignment and hardware Impression dictated by: Crow Contreras M.D. 05/07/2025 12:43 PM Dictation Location: [facility] Electronically authenticated by: [id number] Y Date: 05/07/2025 12:43
--- OUTSIDE RECORDS SUMMARY | 2025-05-07 11:28 | XMS_ITS | Encounter Summary ---
Author Organization [facility] Address [address] [facility] [place] [address] Care Team Providers Care Truck Driving Instructor Name Role Phone Caden Mendez MD Primary Care Provider [phone] Encounter Details Date Type Department Care Team ([facility] Contact Info) Description 03/24/2023 Abstract [facility] [address] [place] [phone] Christiano Geiger MD [address] [place] [phone] Social History Tobacco Use Types Packs/Day Years [...] 06/27/2025 11:00 AM EDT Office Visit FLORIDAClotilde WelchSaurabh Neurology [address] [facility] [address] [place] [phone] Christiano Geiger MD [address] [place] [address] documented as of this encounter Visit Diagnoses Not on filedocumented in this encounter Care Teams Truck Driving Instructor Relationship Specialty Start Date End Date Caden Mendez MD PCP - General Family Medicine 01/10/24 documented as of this encounter
--- OUTSIDE RECORDS SUMMARY | 2025-05-07 11:28 | XMS_ITS | Clinical Summary ---
Author Organization [facility] Address [address] [facility] [place] [address] Care Team Providers Care Cocktail Waitress Name Role Phone Unavailable Primary Care Provider Unavailabl e Source Comments The following information is NOT included in Care Everywhere downloads:Psychiatric notes, ECG results, Cardiac Rehab notes, Pulmonary Function notes, data from [employer] (includes but not limited toPregnancy data,audiograms, eye exams, pre-surgical evaluation notes, well-child exam data).[facility] Medications TRAMADOL HCL ORAL Take by mouth Active hydrocodone-acet aminophen (VICODIN) 5-500 MG per tablet Take 1 Tab by mouth every 6 hours as needed Active DULoxetine HCl (CYMBALTA ORAL) Take by mouth Active Pregabalin (LYRICA ORAL) Take by mouth Active CARVEDILOL ORAL Take by mouth Active Social History Tobacco Use Types Packs/Day Years Used Date Smoking Tobacco: Never Alcohol Use Standard Drinks/Week Comments No 0 (1 standard drink = 0.6 oz pur e alcohol) Substance Use Types Use/Week Comments No Sex and Gender Information Value Date Recorded Sex Assigned at Not on file Legal Sex Male 1:17 PM EST Gender Identity Not on file Sexual Orientation Not on file Plan of Treatment Health Maintenance Due Date Last Done Comments Colonoscopy 1970 HIV Test 1984 Hepatitis C Antibody 1987 Tdap Booster 1987 Hepatitis A (HAV) Vaccine (optional start 19+ years) 0 1988 Hepatitis B (HBV) Vaccine (1 of 3 - 19+ 3-dose series) 1988 Tetanus (Td or Tdap) Booster 1988 Cholesterol 2004 CRC Screening 2014 Cologuard (Stool DNA) 2014 FIT 2014 Pneumococcal Vaccine(s) (50+ yrs) (1 of 1 - PCV) 10/03 Shingles (RZV) Vaccine (1 of 2) 2019 COVID-19 Vaccine (1 - 2023- season) 2024 Influenza Vaccine (#1) 2025 Insurance MEDICAID
--- OUTSIDE RECORDS SUMMARY | 2025-05-07 11:28 | XMS_ITS | Clinical Summary ---
Author Organization [facility] Healthcare Address [address] [place] [address] Care Team Providers Care Band Lining Bander Name Role Phone Caden Mendez MD Primary Care Provider [phone] Allergies Active Allergy Reactions Criticality Noted Date [...] at the same time Active HYDROcodone-aceta minophen ([place]) 5-325 MG tablet 03/20/20 24 Active cholecalciferol [...] mouth at bedtime 30 tablet 2 07/04/20 Active Melatonin 10 MG capsuleIndication s:Primary insomnia Take 10 mg by mouth at bedtime 90 capsule 3 07/04/20 24 2024 Active thiamine (Vitamin B-1) 100 MG tabletIndications :Excessive daytime sleepiness Take 1 tablet (100 mg) by mouth Daily 30 tablet 11 07/05/20 24 2024 Active modafinil (Provigil) 200 MG tabletIndications :Excessive daytime sleepiness,Obstru ctive sleep apnea Take 1 tablet (200 mg) by mouth in the morning and at noon 180 tablet 01/04/20 Active oxybates, calcium, magnesium, potassium and sodium, (Xywav) 500 MG/ML solutionIndicatio ns:Narcolepsy cataplexy syndrome (HCC) Take 3.75 g by mouth at bedtime 225 mL 2 04/04/20 25 2024 Active Problems Problem Noted Date Diagnosed Date [...] Visit [facility] [address] [phone] Christiano Geiger MD Narcolepsy cataplexy syndrome (HCC) (Primary Dx); Excessive daytime sleepiness; Cervical disc disorder; Intractable chronic migraine with aura with status migrainosus 04/04/2025 Bamboo flowsheet [facility] [address] [place] [phone] Christiano Geiger MD 04/04/2025 Travel 04/02/2025 Telephone [facility] [address] [facility] [address] [place] [address] Christiano Geiger MD 03/05/2025 Clinisync [...] Office Visit [facility] [address] [facility] [address] [place] [phone] Christiano Geiger MD [address] [facility] [address] [place] [address] Health Maintenance Due Date Last Done Comments [...] EDT Narrative 03/06/2025 9:29 AM EDT The [address] [address] Electrocardiograph Report Signed Patient: MATTY WADE MR#: [id number] : 1970 Acct:[id number] Age/Sex: 54 / M ADM Date: 03/05/25 Loc: [place] 221-[address]: Caden Mendez M.D. Ordering Physician: Jess Castañeda Date of Service: 03/05/25 Procedure(s): ECG 12 lead Accession Number(s): [id number] cc: The [facility] Test Date: 2025-03-05 Pat Name: MATTY WADE Department: Room: - Gender: Male Senior Counsel: : 1970 Requested By: 0923 Order Number: [id number] Reading MD: RAMIRO WALLS M.D. Measurements Intervals [place] Rate: 76 P: 60 KS: 178 QRS: 69 QRSD: 100 T: 46 QT: 406 QTc: 437 Interpretive Statements 1100 Sinus rhythm 0102 ARTIFACT PRESENT 9110 normal ECG Compared to ECG 09/23/2024 05:51:07 No significant changes Electronically Signed On 03-06-2025 9:29:34 EDT by RAMRIO WALLS M.D. Dictated By: RAMIRO WALLS Signed By: 03/06/2529 DD/ 06 TD/TT: It Security Specialist: Procedure Note Radiology, Radiologist, - 03/06/[address] [address] Electrocardiograph Report Signed Patient: MATTY WADE TMR#: [id number] : 1970Acct:[id number] Age/Sex: 54 / MADM Date: 03/05/25 Loc: [place] 221-[address]: Caden Mendez M.D. Ordering Physician: Jess Castañeda Date of Service: 03/05/25 Procedure(s): ECG 12 lead Accession Number(s): [id number] cc: The [facility] Test Date: 2025-03-05 Pat Name: MATTY WADE Department: Room: - Gender: Male Senior Counsel: : 1970 Requested By: 0923 Order Number: [id number] Reading MD: RAMIRO WALLS M.D. Measurements Intervals [place] Rate: 76 P: 60 KS: 178 QRS: 69 QRSD: 100 T: 46 QT: 406 QTc: 437 Interpretive Statements 1100 Sinus rhythm 0102 ARTIFACT PRESENT 9110 normal ECG Compared to ECG 09/23/2024 05:51:07 No significant changes Electronically Signed On 03-06-2025 9:29:34 EDT by RAMIRO WALLS M.D. Dictated By: RAMIRO WALLS Signed By:03/06/25928 DD/ 06 TD/TT: It Security Specialist: Jess Castañeda [place] [facility] Final Result * BLOOD CULTURE [...] LAB BLOOD ORDERABLES Final Resul t [facility] from Last 3 Months Insurance [facility] MEDICAID [place] Care Teams Band Lining Bander Relationship Specialty Start Date End Date Caden Mendez MD PCP - General Family Medicine 01/10/24
--- OUTSIDE RECORDS SUMMARY | 2025-05-07 11:28 | XMS_ITS | Clinical Summary ---
Author Organization [facility] Address [address] [place] [address] Care Team Providers Care Liquor Rectifier Name Role Phone Caden Mendez MD Primary Care Provider [phone] Allergies No known active allergies Medications traMADOL [...] Protein, Total 7.5 6.0 - 8.4 g/dL [facility] Albumin 4.8 3.5 - 5.0 g/dL [facility] Calcium 9.6 8.5 - 10.5 mg/dL [facility] Bilirubin, Total 0.3 0.0 - 1.5 mg/dL [facility] Alkaline Phosphatase 70 40 - 150 U/L [facility] AST 20 7 - 40 U/L [facility] Glucose 54(L) 65 - 100 mg/dL [facility] BUN 25 10 - 25 mg/dL [facility] Creatinine 1.00 0.70 - 1.40 mg/dL [facility] Sodium 143 135 - 146 mmol/L [facility] Potassium 3.5 3.5 - 5.0 mmol/L [facility] Chloride 104 98 - 110 mmol/L [facility] CO2 28 23 - 32 mmol/L [facility] Anion Gap 11 0 - 15 mmol/L [facility] ALT 30 5 - 50 U/L [facility] eGFR- >[address] [facility] eGFR-All Other Races >60 . [facility] Comment: eGFR (Estimated GFR) [...] EDT Joan Smith MD LABORATORY Final Result [facility] [address] [place] [address] from Last 3 Months or Most Recently Relevant to Health Maintenance Insurance [employer] MEDICAID OF [place] Care Teams Liquor Rectifier Relationship Specialty Start Date End Date Caden Mendez MD PCP - General Family Medicine 03/08/12
--- OUTSIDE RECORDS SUMMARY | 2025-05-07 11:28 | XMS_ITS | Encounter Summary ---
Author Organization [facility] Address [address] [facility] [place] [address] Care Team Providers Care Flash Welder Name Role Phone Caden Mendez MD Primary Care Provider [phone] Encounter Details Date Type Department Care Team (Special Care [facility] Contact Info) Description 07/17/2023 Abstract [facility] [address] [place] [phone] Christiano Geiger MD [address] [facility] [address] [place] [phone] Social History Tobacco Use Types Packs/Day Years [...] [facility] [address] [facility] [address] [place] [phone] Christiano Geiger MD [address] [place] [address] documented as of this encounter Visit Diagnoses Not on filedocumented in this encounter Care Teams Flash Welder Relationship Specialty Start Date End Date Caden Mendez MD PCP - General Family Medicine 01/10/24 documented as of this encounter
--- OUTSIDE RECORDS SUMMARY | 2025-05-07 11:28 | XMS_ITS | Encounter Summary ---
Author Organization [facility] Address [address] [place] [address] Care Team Providers Care Pigment And Lacquer Mixer Name Role Phone Caden Mendez MD Primary Care Provider [phone] Encounter Details Date Type Department Care Team (Late st Contact Info) Description 03/11/2023 External Result Encounter [facility] External Department Unsolicited Christiano Geiger MD [address] [place] [phone] Social History Tobacco Use Types Packs/Day [...] [address] [facility] [address] [place] [phone] Christiano Geiger MD [address] [place] [address] [phone] documented as of this encounter Procedures Procedure [...] Crow Contreras M.D.03/11/2023 3:48 PM Dictation Location: [facility]--03 Transcribed By: PWS 03/11/23 1548 Dictated By: Crow Contreras DO 03/11/23 1544 Signed By: <Electronically signed by Crow Contreras DO in OV> 03/11/23 1548 Narrative 03/12/2023 8:34 AM EDT [facility] Main [place] [id number] XRay Report Signed Patient: Alden Garces MR#: [id number] : 1970 Acct:[id number] Age/Sex: 52 / M ADM Date: 03/11/23 Loc: ICXD Room: Type: [facility] Attending Dr: Christiano Geiger MD Copies [...] 5V* Procedure Note Radiology, Radiologist, - 03/12/2023 [facility] Main [place] [id number] XRay Report Signed Patient: Alden Garces TMR#: [id number] : 1970Acct:[id number] Age/Sex: 52 / MADM Date: 03/11/23 Loc: ICXD Room:Type: [facility] Attending Dr: Christiano Geiger MD Copies [...] Crow Contreras M.D.03/11/2023 3:48 PM Dictation Location: [place] [address] Transcribed By: [facility] 03/11/23 1548 Dictated By: Crow Contreras DO 03/11/23 1544 Signed By: <Electronically signed by Crow Contreras DO in OV> 03/11/23 1548 us Christiano Geiger MD IMG XR PROCEDURES Final Resul t documented in this encounter Visit Diagnoses Not on filedocumented in this encounter Care Teams Pigment And Lacquer Mixer Relationship Specialty Start Date End Date Caden Mendez MD PCP - General Family Medicine 01/10/24 documented as of this encounter
== END 2025-05-07 11:27 | disposition home or self-care (01) ==
LOC: RAD 11:26
PROVIDERS: PCP Family Medicine; Visit Provider Orthopaedic Surgery Orthopaedic Trauma
DX: M79.604 Pain in right leg (principal); S82.841D Displaced bimalleolar fracture of right lower leg, subsequent encounter for closed fracture with routine healing
CPT/HCPCS: 73590

== ENCOUNTER 2025-06-16 01:13 | Inpatient (IN) | payer MEDICAID, SELFPAY ==
[2025-06-16] VITALS (7 sets, daily range): BP systolic 121–156; BP diastolic 64–90; PULSE 77–97; TEMP 36.5–36.7; O2SAT 93–97; BMI 62.3; BMI 34.9
--- OUTSIDE RECORDS SUMMARY | 2025-06-16 01:20 | XMS_ITS | CCD ---
Author Organization [facility] Care Team Providers Care Rn Integrity Name Role Phone UNKNOWN, PROVIDER Admitting Unavailable UNKNOWN, PROVIDER Attending Unavailable VENUS JAEGER Referring Unavailable VENUS JAEGER Primary Care Unavailable DC Procedure Practitioner Unavailab le UNKNOWN, PROVIDER Surgeon Unavailable DC Procedure Practitioner Unavailab le SANDRA BILL Surgeon Unavailable UNKNOWN, PROVIDER Admitting Unavailable UNKNOWN, PROVIDER Attending Unavailable VENUS JAEGER Referring Unavailable VENUS JAEGER Primary Care Unavailable DC Procedure Practitioner Unavailab le UNKNOWN, PROVIDER Surgeon [...] MANUEL Consulting Unavailable MAYRA BERNAL Consulting Unavailable Giedraitis , Andrius Berkowitz Attending Unavailable Giedraitis , Andrius Woo Attending Unavailable Giedraitis , Andrius Woo Attending Unavailable Giedraitis , Andrius Woo Attending Unavailable Giedraitis , Andrius Woo Attending Unavailable CHINO Vallejo Attending Provider [phone] Venus Jaeger MD Primary Care Provider [phone] Yoni MAGANA, Trey Smith Attending Provider [phone] MARIANNA SUAREZ Referring Unavailable SUYAPA, SHIN Referring Unavailable SUYAPA, SHIN Referring Unavailable SELMA, SANDRINE Referring Unavailable MAI, WADEER Referring Unavailable SUYAPA, SHIN Referring Unavailable SUYAPA, SHIN Referring Unavailable HINDERS, MARILOU Referring Unavailable AMEGEE, TONIO Referring Unavailable AMEGEE, TONIO Referring Unavailable ESLMA, SANDRINE Referring Unavailable AMEGEE, TONIO Referring Unavailable SELMA, SANDRINE Referring Unavailable SUYAPA, SHIN Referring Unavailable KATKO, SERA Referring Unavailable HERNANDEZ, LICO Admitting Unavailable HERNANDEZ, LICO Attending Unavailable HAYARMANDO Referring Unavailable SHAUN, FABIOLA Admitting Unavailable CARENAROLDO LEWIS Attending Unavailable SUYAPA, SHIN Referring Unavailable Venus Jaeger MD Primary Care Provider [phone] RUBÉN GEIGER Attending Unavailable RUBÉN GEIGER Attending Unavailable RUBÉN GEIGER Attending Unavailable RUBÉN GEIGER Attending Unavailable Venus Jaeger MD Primary Care Provider [phone] Jameel Coats DO Attending Provider Trey Vallejo Admitting Unavailable Trey Vallejo Attending Unavailable Venus Jaeger Primary Care Unavailable Jameel Coats Admitting Unavailable Jameel Coats Attending Unavailable Allergies Allergy Classification Reported Allergen(s) Allergy Type Date of Onset Reaction(s) Facility (1 source) Aspartame Drug Allergy 08-17-20 18 [facility]ository (1 source) avoid; Translations: [Unknown] Propensity to adverse reactions (disorder) 08-17-20 18 [facility] (1 source) vitamin B12; Translations: [cyanocobalamin] Drug Allergy Unknown (qualifier value) [facility] (1 source) Acetaminophen / HYDROcodone Drug Allergy [facility] (1 source) Corticosteroids Drug allergy (disorder) [facility] (1 source) fentaNYL Drug Allergy [facility] (1 source) Misc-Food; Translations: [Misc-Food] Food allergy (disorder) [facility] (19 sources) fentaNYL Drug Allergy 07-08-20 Unknown [facility] (19 sources) HYDROcodone Drug Allergy 07-08-20 Unknown [facility] (19 sources) Morphine And Codeine Drug Allergy 07-08-20 Unknown [facility] (19 sources) Other Propensity to adverse reactions 07-08-20 [facility] (1 source) Corticosteroids Drug allergy (disorder) 05-07-20 [facility] Repository Medications Current Medications Medication Drug Class(es) Dates Sig (Normalized) Sig (Original) acetaminophen 325 mg / HYDROcodone bitartrate 5 mg oral tablet (19 sources) Opioid Agonist Start: 03-20-2024 HYDROcodone-aceta minophen (Friedens) 5-325 MG tablet 03/20/2024 Active amantadine hydrochloride 100 mg oral tablet (20 sources) Influenza A M2 Protein Inhibitor Start: 05-07-2025 End: 05-16-2026 take 1 tablet by mouth in the morning amantadine (Symmetrel) 100 MG tablet Indications: Excessive daytime sleepiness , Primary insomnia TAKE 1 TABLET (100 MG) BY MOUTH IN THE MORNING AND AT NOON 60 tablet 11 05/16/2025 05/16/2026 Active Start: 04-10-2024 End: 04-10-2025 take 1 tablet by mouth in the morning amantadine (Symmetrel) 100 MG tablet Indications: Excessive daytime sleepiness , Primary insomnia Take 1 tablet (100 mg) by mouth in the morning and at noon 180 tablet 3 04/10/2024 04/10/2025 Active aspirin 81 mg delayed release oral tablet (20 sources) Platelet Aggregation Inhibitor, Nonsteroidal Anti-inflammatory Drug Start: 05-14-2018 take 1 tablet by mouth once daily ASPIRIN 81 MG ch ewable tablet Chew 81 mg in the morning. Active B-D 3CC LUER-SAYRA SYR 23GX1 23G X 1 3 ML misc (19 sources) Start: 05-18-2023 B-D 3CC LUER-L OK SYR 23GX1 23G X 1 3 ML misc USE 1 SYRINGE INTRAMUSCULARLY ONCE A WEEK 05/18/2023 Active Biotin (20 sources) Start: 02-26-2022 BIOTIN BIOTIN Start Date: 02/26/22 Status: Ordered Start: 05-14-2018 take 1 tablet by mouth once da rodney celecoxib 100 mg oral capsule (19 sources) Nonsteroidal Anti-inflammatory Drug CeleBREX 100 MG capsule 1 (one) time each day at the same time Active cholecalciferol 0.125 mg oral capsule (19 sources) Vitamin D Start: 2023 cholecalciferol (Vitamin D-3) 125 MCG (5000 UT) capsule 03/15/2024 Active clonazePAM 1 mg oral tablet (20 sources) Benzodiazepine Start: 2023 End: 2024 take 1 tablet by mouth at bedtime clonazePAM (KlonoPIN) 1 MG tablet Indications: Primary insomnia Take 1 tablet (1 mg) by mouth at bedtime 30 tablet 2 07/04/2024 Active Start: 02-26-2022 ClonazePAM 0.5 mg Tab Refills(s) 0 Start Date: 02/26/22 Status: Ordered Start: 05-14-2018 take 2 tablets by mo uth at bedtime Start: 05-14-2018 take 1 mg by mouth at bedtime Clonazepam Active 0.05 mg/kg PO Bedtime May 14, 2018 12:00am diazePAM 5 mg oral tablet (4 sources) Benzodiazepine Start: 05-14-2018 take 1 tablet by mouth at bedtime diclofenac sodium 75 mg delayed release oral tablet (4 sources) Nonsteroidal Anti-inflammatory Drug Start: 05-14-2018 take 1 tablet by mouth twice daily doxazosin 8 mg oral tablet (20 sources) alpha-Adrenergic Jorge L Start: 02-26-2022 doxazosin 8 mg oral tablet Refills(s) 0 Start Date: 02/26/22 Status: Ordered doxepin hydrochloride 10 mg oral capsule (20 sources) Tricyclic Antidepressant Start: 02-26-2022 doxepin 10 mg Cap Refills(s) 0 Start Date: 02/26/22 Status: Ordered DULoxetine 60 mg delayed release oral capsule (19 sources) Serotonin and Norepinephrine Reuptake Inhibitor take 1 capsule by mouth in the morning DULoxetine (Cymbalta) [address] capsule Take 60 mg by mouth in the morning and 60 mg in the evening. Active escitalopram 20 mg oral tablet (19 sources) Serotonin Reuptake Inhibitor take 1 tablet by mouth in the morning escitalopram (Lexapro) 20 MG tablet Take 20 mg by mouth in the morning. Active gabapentin 600 mg oral tablet (20 sources) Anti-epileptic Agent Start: 05-14-2018 take 1 tablet by mouth three times daily hydrOXYzine pamoate 25 mg oral capsule (19 sources) Antihistamine Start: 05-11-2024 take 1 capsule by mouth once daily at bedtime hydrOXYzine pamoate (Vistaril) 25 MG capsule Indications: Primary insomnia TAKE ONE CAPSULE BY MOUTH ONCE DAILY AT BEDTIME 30 capsule 11 05/11/2024 Active lisinopril 10 mg oral tablet (4 sources) Angiotensin Converting Enzyme Inhibitor Start: 05-14-2018 take 1 tablet by mouth once daily meclizine hydrochloride 25 mg chewable tablet (19 sources) Antiemetic Meclizine HCl 25 MG chewable tablet Chew 25 mg 1 (one) time each day at the same time. Active melatonin 10 mg oral capsule (20 sources) Start: 07-14-2023 End: 07-04-2025 take 1 capsule by mouth at bedtime Melatonin 10 MG capsule Indications: Primary insomnia Take 10 mg by mouth at bedtime 90 capsule 3 07/04/2024 07/04/2025 Active modafinil 200 mg oral tablet (20 sources) Sympathomimetic-like Agent Start: 05-07-2025 End: 08-14-2025 take 1 tablet by mouth in the morning modafinil (Provigil) 200 MG tablet Indications: Excessive daytime sleepiness , Obstructive sleep apnea TAKE 1 TABLET (200 MG) BY MOUTH IN THE MORNING AND AT NOON 60 tablet 2 05/16/2025 08/14/2025 Active Start: 04-10-2024 End: 04-03-2025 take 1 tablet by mouth in the morning modafinil (Provigil) 200 MG tablet Indications: Excessive daytime sleepiness , Obstructive sleep apnea Take 1 tablet (200 mg) by mouth in the morning and at noon 180 tablet 01/03/2025 Active Start: 02-26-2022 modafinil 200 mg Tab Refills(s) 0 Start Date: 02/26/22 Status: Ordered Multiple Vitamins-Minerals (Multi For Him 50+) tablet (19 sources) Multiple Vitamins-Minerals (Multi For Him 50+) tablet as directed Orally Active omeprazole 40 mg delayed release oral capsule (4 sources) Proton Pump Inhibitor Start: take 1 capsule by mouth twice daily ondansetron 4 mg oral tablet (20 sources) Serotonin-3 Receptor Antagonist Start: End: take 2 tablets by mouth every eight hours for nausea ondansetron (Zofran) 4 MG tablet Indications: Projectile vomiting with nausea Take 2 tablets (8 mg) by mouth every 8 (eight) hours if needed for nausea or vomiting 30 tablet 3 11/14/2024 12/14/2024 Active Start: 03-15-2024 ondansetron OD T (Zofran-ODT) 4 MG disintegrating tablet 03/15/2024 Active Start: 05-14-2018 ondansetron (Zof ran) 4 MG tablet Take 4 mg by mouth if needed. Active OXcarbazepine 300 mg oral tablet (19 sources) Anti-epileptic Agent take 1 tablet by mouth at bedtime OXcarbazepine (Trileptal) 300 MG tablet Take 300 mg by mouth at bedtime. Active oxybates, calcium, magnesium, potassium and sodium, (Xywav) 500 MG/ML solution (2 sources) Start: End: take 3.75 g by mouth at bedtime oxybates, calcium, magnesium, potassium and sodium, (Xywav) 500 MG/ML solution Indications: Narcolepsy cataplexy syndrome (HCC) Take 3.75 g by mouth at bedtime 225 mL 2 04/04/2025 05/04/2025 Active potassium chloride 10 meq extended release oral tablet (19 sources) Start: take 1 tablet by mouth at mealtime potassium chloride CR (Klor-Con) 10 MEQ ER tablet Take 10 mEq by mouth in the morning. Take with food. . 02/22/2023 Active sennosides, fpc 8.6 mg oral tablet (19 sources) Start: senna (Senokot) 8.6 MG tablet 03/15/2024 Active simvastatin 20 mg oral tablet (20 sources) HMG-CoA Reductase Inhibitor Start: take 1 tablet by mouth once daily SUMAtriptan 100 mg oral tablet (20 sources) Serotonin-1b and Serotonin-1d Receptor Agonist Start: take 1 tablet by mouth once ALAINA triptan (Imitrex) 100 MG tablet Take 100 mg by mouth 1 (one) time if needed. Active 1 ml testosterone cypionate 200 mg/ml injection (19 sources) Androgen testosterone cyp ionate (Depo-Testosterone) 200 MG/ML injection Inject 200 mg into the shoulder, thigh, or buttocks every 14 (fourteen) days. Active thiamine 100 mg oral tablet (15 sources) Start: End: take 1 tablet by mouth once daily thiamine (Vitamin B-1) 100 MG tablet Indications: Excessive daytime sleepiness Take 1 tablet (100 mg) by mouth Daily 30 tablet 11 07/05/2024 07/05/2025 Active tiZANidine 4 mg oral capsule (20 sources) Central alpha-2 Adrenergic Agonist Start: take 1 capsule by mouth at bedtime take 1 tablet by mouth at bedtim e tiZANidine (Zanaflex) 4 MG tablet Take 4 mg by mouth at bedtime. Active Vit D3-Folic Pyhz-H3-T2-B12 (1 source) Start: 05-14-2018 take 1 tablet by mouth once daily Vit D3-Folic Jszt-I7-[id number]-B12 Active 1 TAB PO Daily May 14, 2018 12:00am Vit D3-Folic Dgtn-T6-W6-B12 2,000-800-0.32 unit-mcg-mg Tablet (3 sources) Start: 05-14-2018 take 1 tablet by mouth once daily Start: 05-14-2018 take 1 tablet by shruthi th once daily Vit D3-Folic Trmf-K5-L1-B12 2,000-800-0.32 unit-mcg-mg Tablet Active 1 TAB PO Daily May 13, 2018 11:00pm Completed/Discontinued Medications Medication Drug Class(es) Dates Sig (Normalized) Sig (Original) apixaban 5 mg oral tablet (2 sources) Factor Xa Inhibitor Start: 05-07-2025 Apixaban (Eliquis) 5 mg tablet Discontinued MG PO May 07, 2025 12:00am carvedilol 25 mg oral tablet (20 sources) alpha-Adrenergic Jorge L, beta-Adrenergic Jorge L Start: 02-26-2022 Carvedilol 25 mg tablet Discontinued MG PO May 07, 2025 12:00am Start: 05-14-2018 take 1 tablet by mouth twice d aily citalopram 40 mg oral tablet (20 sources) Serotonin Reuptake Inhibitor Start: 05-07-2025 Citalopram 40 mg tab let Discontinued MG PO May 07, 2025 12:00am Start: 06-02-2023 CeleXA 20 MG t ablet 1 (one) time each day at the same time. 06/02/2023 Active furosemide 20 mg oral tablet (20 sources) Loop Diuretic Start: 05-07-2025 Furosemide 20 mg tablet Discontinued MG PO May 07, 2025 12:00am glycopyrrolate 1 mg oral tablet (20 sources) Start: 01-22-2023 Glycopyrrolate 1 mg tablet Discontinued MG PO May 07, 2025 12:00am Start: 02-26-2022 glycopyrrolate 1 mg oral tablet Refills(s) 0 Start Date: 02/26/22 Status: Ordered pantoprazole 40 mg delayed release oral tablet (20 sources) Proton Pump Inhibitor Start: 02-26-2022 Pantoprazole 40 mg tablet,delayed release (DR/EC) Discontinued MG PO May 07, 2025 12:00am Problems Active Problems Problem Classification Problem Date Documented Date Episodic/Chronic Anxiety disorders (20 sources) Anxiety disorder, unspecified; Translations: [Anxiety disorder] Onset: 6 06-21-2023 Chronic Blindness and vision defects (1 source) Unspecified visual loss; Translations: [UNSPECIFIED VISUAL LOSS] Onset: 2 Chronic Congestive heart failure; nonhypertensive (20 sources) Chronic combined systolic and diastolic heart failure; Translations: [Chronic combined systolic (congestive) and diastolic (congestive) heart failure] Onset: 3 10-15-2024 Chronic Delirium, dementia, and amnestic and other cognitive disorders (19 sources) Specific nonpsychotic mental disorders following organic [...] WITHOUT ESOPHAGITIS] Onset: 3 Chronic Essential hypertension (20 sources) Essential (primary) hypertension; Translations: [Hypertensive disorder] Onset: 9 06-21-2023 Chronic Fracture of lower limb (20 sources) Unspecified fracture of shaft of right tibia, initial encounter for closed fracture; Translations: [Unspecified fracture of shaft of right fibula, initial encounter for closed fracture] Onset: 5 Episodic Headache; including migraine (20 sources) Migraine; Translations: [Migraine, unspecified, not intractable, without status migrainosus] Onset: 7 06-21-2023 Chronic Hyperplasia of prostate (1 source) Benign prostatic hypertrophy without outflow obstruction; Translations: [Benign prostatic hyperplasia without lower urinary tract symptoms] Onset: 2 Chronic Hypertension with complications and secondary hypertension (12 sources) Hypertensive heart failure; Translations: [Hypertensive heart disease with heart failure] Onset: 3 10-15-2024 Chronic Miscellaneous mental health disorders (20 sources) Primary insomnia; Translations: [Primary insomnia] Onset: 3 03-11-2023 Chronic Mood disorders (1 source) Major depressive disorder, single episode, unspecified; Translations: [MARITZA DEPRESS D/O SINGLE EPIS UNS] Onset: 2 Chronic Mood disorders (1 source) Mood disorders; Translations: [DEPRESSION UNSPECIFIED] Onset: 3 Nausea and vomiting (1 source) Projectile vomiting; Translations: [Projectile vomiting] 11-14-2024 Episodic Osteoarthritis (20 sources) Unspecified osteoarthritis, unspecified site; Translations: [Arthritis of right acromioclavicular joint] Onset: 8 06-21-2023 Chronic Other aftercare (1 source) long term care social worker (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; Translations: [SECURITY GUARD 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 ASPIRIN] Onset: 3 Episodic Other aftercare (1 source) Other fpc (current) drug therapy; Translations: [OTH JAIL CURRENT DRUG THERAPY] Onset: 3 Episodic Other bone disease and musculoskeletal deformities (2 sources) Hypertrophy of bone; Translations: [Hypertrophy of bone, unspecified tibia and fibula] 05-07-2025 Episodic Other bone disease and musculoskeletal deformities (1 source) Hypertrophy of bone, unspecified tibia and fibula; Translations: [Hypertrophy of bone, unspecified tibia and fibula] Onset: 5 Episodic Other connective tissue disease (3 sources) [...] per request of Phys. EHR Cmte Other connective tissue disease (20 sources) Other symptoms and signs involving the musculoskeletal system; Translations: [Other musculoskeletal symptoms referable to limbs] Onset: 4 12-29-2023 Episodic Comment on above: Problem List clean-u p per request of Phys. EHR Cmte Other connective tissue disease (2 sources) Pain in right lower limb; Translations: [Pain in right leg] 05-07-2025 Episodic Other diseases of veins and lymphatics [...] Onset: 3 Episodic Other male genital disorders (19 sources) Secondary erectile dysfunction; Translations: [Male erectile [...] Onset: 2 Chronic Other nervous system disorders (19 sources) Carpal tunnel syndrome of right wrist; Translations: [Carpal tunnel syndrome, right upper limb] Onset: 8 06-21-2023 Chronic Other nervous system disorders (20 sources) Lesion of ulnar nerve, right upper limb; Translations: [Lesion of ulnar nerve] Onset: 3 06-21-2023 Chronic Other nervous system disorders (19 sources) Chronic pain; Translations: [Other chronic pain] Onset: 8 06-21-2023 Chronic Other nervous system disorders (19 sources) Ulnar nerve entrapment; Translations: [Lesion of ulnar nerve, unspecified upper limb] Onset: 3 06-21-2023 Chronic Other nervous system disorders (20 sources) Cataplexy and narcolepsy; Translations: [Narcolepsy with cataplexy] Onset: 5 10-04-2024 Chronic Other nervous system disorders (20 sources) Numbness of upper limb; Translations: [Anesthesia of skin] Onset: 4 08-25-2023 Episodic Comment on above: Problem List clean-u p per request of Phys. EHR Cmte Other nutritional; endocrine; and metabolic disorders (12 sources) Obesity; Translations: [Obesity, unspecified] Onset: 5 10-15-2024 Chronic Mary Lou-; endo-; and myocarditis; cardiomyopathy (except that caused by tuberculosis or sexually transmitted disease) (12 sources) Cardiomyopathy; Translations: [Other cardiomyopathies] Onset: 3 10-15-2024 Chronic Residual codes; unclassified (1 source) Sleep apnea, unspecified; Translations: [SLEEP APNEA UNSPECIFIED] Onset: 3 Chronic Residual codes; unclassified (20 sources) Daytime somnolence; Translations: [Other hypersomnia] Onset: 3 03-11-2023 Chronic Residual codes; unclassified (20 sources) Obstructive sleep apnea syndrome; Translations: [Obstructive sleep apnea (adult) (pediatric)] Onset: 3 06-21-2023 Chronic Residual codes; unclassified (2 sources) Obstructive sleep apnea (adult) (pediatric); Translations: [Obstructive sleep apnea (adult) (pediatric)] Onset: 5 Chronic Spondylosis; intervertebral disc disorders; other back problems (20 sources) Cervical disc disorder; Translations: [Cervical disc disorder, unspecified, unspecified cervical region] Onset: 3 06-21-2023 Chronic Spondylosis; intervertebral disc disorders; other back problems (20 sources) Cervical disc prolapse with radiculopathy; Translations: [Cervical disc disorder with radiculopathy, unspecified cervical region] Onset: 9 08-25-2023 Episodic Comment on above: Problem List clean-u p per request of Phys. EHR Cmte Superficial injury; contusion (2 sources) Contusion of right forearm, initial encounter; Translations: [Contusion of other part of head, initial encounter] Onset: 3 Episodic Unclassified (1 source) CONTACT W/AND (SUSP) EXPOS COVID-19; Translations: [CONTACT W/AND (SUSP) EXPOS COVID-19] Onset: 2 Past or Other Problems Problem Classification Problem Date Documented Date Episodic/Chronic Coma; stupor; and brain damage (19 sources) Clouded consciousness; Translations: [Stupor] Onset: 03-03-2012 06-21-2023 Episodic E Codes: Fall (15 sources) Unspecified fall, initial encounter; Translations: [Fall in home] Onset: 12-07-2022 Episodic E Codes: Natural/environment (1 source) Exposure to other specified factors, initial encounter; Translations: [EXPOSURE OTHER SPEC FACTORS INITIAL] Onset: 04-27-2022 Episodic Gastritis and duodenitis (19 sources) Gastritis; Translations: [Gastritis, unspecified, without bleeding] Onset: 05-09-2013 06-21-2023 Episodic Heart valve disorders (19 sources) Systolic murmur; Translations: [Cardiac murmur, unspecified] Onset: 06-24-2023 06-24-2023 Episodic Immunizations and screening for infectious disease (1 source) Encounter for immunization; Translations: [ENCOUNTER FOR IMMUNIZATION] Onset: 04-27-2022 Episodic Inflammatory conditions of male genital organs (4 sources) Inflammatory disorders of scrotum; Translations: [INFLAMMATORY DISORDERS OF SCROTUM] Onset: 01-04-2022 Episodic Malaise and fatigue (19 sources) Fatigue; Translations: [Other fatigue] Onset: 03-03-2012 06-21-2023 Episodic Noninfectious gastroenteritis (19 sources) Gastroenteritis; Translations: [Noninfective gastroenteritis and colitis, unspecified] Onset: 04-10-2015 06-21-2023 Episodic Nonspecific chest pain (20 sources) Chest discomfort; Translations: [Other chest pain] Onset: 11-30-2011 06-21-2023 Episodic Open wounds of extremities (16 sources) Puncture wound without foreign body, left foot, initial encounter; Translations: [Open wound of left great toe] Onset: 03-26-2022 Episodic Other circulatory disease (19 sources) Capillary hemangioma; Translations: [Nevus, non-neoplastic] Onset: 05-28-2008 06-21-2023 Episodic Other connective tissue disease (20 sources) Spasm of cervical paraspinous muscle; Translations: [Other muscle spasm] Onset: 03-11-2023 03-11-2023 Episodic Other connective tissue disease (19 sources) Bursitis; Translations: [Bursopathy, unspecified] Onset: 02-27-2011 06-21-2023 Episodic Other connective tissue disease (19 sources) Foot pain; Translations: [Pain in unspecified foot] Onset: 10-07-2012 06-21-2023 Episodic Other connective tissue disease (19 sources) Muscle pain; Translations: [Myalgia, unspecified site] Onset: 12-02-2012 06-21-2023 Episodic Other connective tissue disease (19 sources) Impingement syndrome of shoulder region; Translations: [Impingement syndrome of unspecified shoulder] Onset: 01-25-2003 06-21-2023 Episodic Other connective tissue disease (19 sources) Lateral epicondylitis; Translations: [Lateral epicondylitis, unspecified elbow] Onset: 06-24-2023 06-24-2023 Episodic Other lower respiratory disease (19 sources) Dyspnea; Translations: [Dyspnea, unspecified] Onset: 11-30-2011 06-21-2023 Episodic Other non-traumatic joint disorders (19 sources) Ankle edema; Translations: [Effusion, unspecified ankle] Onset: 05-15-2014 06-21-2023 Episodic Other non-traumatic joint disorders (19 sources) Joint pain; Translations: [Pain in unspecified joint] Onset: 09-03-2009 06-21-2023 Episodic Other screening for suspected conditions (not mental disorders or infectious disease) (20 sources) Encounter for screening for malignant neoplasm of prostate; Translations: [Elevated prostate specific antigen [PSA]] Onset: 03-13-2022 Episodic Other skin disorders (19 sources) Excessive sweating; Translations: [Generalized hyperhidrosis] Onset: 12-18-2015 06-21-2023 Episodic Other skin disorders (19 sources) Senile hyperkeratosis; Translations: [Actinic keratosis] Onset: 03-28-2015 06-21-2023 Episodic Other skin disorders (19 sources) Hyperhidrosis; Translations: [Generalized hyperhidrosis] Onset: 06-24-2023 06-24-2023 Episodic Other upper respiratory infections (19 sources) Upper respiratory infection; Translations: [Acute upper respiratory infection, unspecified] Onset: 12-05-2010 06-21-2023 Episodic Skin and subcutaneous tissue infections (20 sources) Cellulitis; Translations: [Cellulitis, unspecified] Onset: 03-31-2013 06-21-2023 Episodic Urinary tract infections (19 sources) Urinary tract infectious disease; Translations: [Urinary tract infection, site not specified] Onset: 06-28-2014 06-21-2023 Episodic Results Test Name Value Interpretation Reference Range Facility CT lower leg RT wo conon CT lower leg RT wo con [facility] Main [address] [address] [address] Scan Report Signed Patient: Matty Garces MR#: [id number] 97 : 1970 Acct:[id number] Age/Sex: 54 / M ADM Date: 05/29/25 Loc: CT Room: Type: [facility] CLI Attending Dr: Jameel Coats DO Copies to: Jameel Coats DO Ordering Provider: Jameel Coats DO Date of Service: 05/29/25 CT/CT lower leg RT wo con: S82.201A - Unspecified fracture of shaft of right tibia, ... CT lower leg RT wo con 05/29/2025 3:56 PM SIGNS AND SYMPTOMS: Nonhealing fracture TECHNIQUE: Multidetector CT axial slices of the left tibia and fibula without IV contrast. Multiplanar and 3-D reformats were performed and viewed on a separate workstation and reviewed to further define anatomy and possible pathology. CT was performed with one or more of the following dose reduction techniques: Automated exposure control, adjustment of the mA and/or kV according to patient size, or use of iterative reconstruction technique. COMPARISON: 05/07/2025 and 04/10/2025 FINDINGS: There is evidence of previous intramedullary fixation of a distal tibial shaft fracture. The fracture line is incompletely healed. The hardware is grossly intact. There is lucency surrounding the intramedullary wendy along the distal aspect of the fracture hardware loosening. There is no change in alignment. Oblique fracture lines are noted in the mid shaft with evidence of incomplete healing. There is an incompletely healed fracture of the distal shaft of the fibula. Diffuse soft tissue swelling is noted from the knee to the ankle. Periarticular osteopenia is noted at the tibiotalar junction, at the calcaneocuboid junction, at the talonavicular junction, and throughout the cuneiforms. This may represent osteopenia secondary to disuse. Additionally this may represent sequelae of chronic regional pain syndrome. CT/CT lower leg RT wo con IMPRESSION: There is lucency surrounding the intramedullary wendy along the distal aspect of the fracture hardware loosening. There is no change in alignment. There is an incompletely healed fracture of the distal tibia. Oblique fracture lines are noted in the mid shaft with evidence of incomplete healing. There is an incompletely healed fracture of the distal shaft of the fibula. Periarticular osteopenia is noted at the tibiotalar junction, at the calcaneocuboid junction, at the talonavicular junction, and throughout the cuneiforms. This may represent osteopenia secondary to disuse. Additionally this may represent sequelae of chronic regional pain syndrome. Impression dictated by: Francis Irving M.D. 05/29/2025 11:40 PM Dictation Location: [place] [address] Transcribed By: [facility] 05/29/25 2340 Dictated By: Francis Irving II, MD 05/29/25 5139 Signed By: 05/29/25 2340 Normal [facility] ECG 12-LEADon 03-06-[address] [address] Electrocardiograph Report Signed Patient: MATTY GARCES MR#: [id number] : 1970 Acct:[id number] Age/Sex: 54 / M ADM Date: 03/05/25 Loc: MS 221-[address]: Venus Jaeger M.D. 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 Measurements Intervals [place] Rate: 76 P: 60 DC: 178 QRS: 69 QRSD: 100 T: 46 QT: 406 QTc: 437 Interpretive Statements 1100 Sinus rhythm 0102 ARTIFACT PRESENT 9110 normal ECG Compared to ECG 09/23/2024 05:51:07 No significant changes Electronically Signed On 03-06-2025 9:29:34 EDT by RAMIRO WALLS M.D. Dictated By: RAMIRO WALLS Signed By: 03/06/25928 DD/ 06 TD/TT: Raised Printer: [facility] Radiology, Radiologist, - 03/06/2025 [place] [address] Electrocardiograph Report Signed Patient: MATTY GARCES MR#: [id number] : 1970 Acct:[id number] Age/Sex: 54 / M ADM Date: 03/05/25 Loc: MS 221-[address]: Venus Jaeger M.D. 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 Measurements Intervals [place] Rate: 76 P: 60 DC: 178 QRS: 69 QRSD: 100 T: 46 QT: 406 QTc: 437 Interpretive Statements 1100 Sinus rhythm 0102 ARTIFACT PRESENT 9110 normal ECG Compared to ECG 09/23/2024 05:51:07 No significant changes Electronically Signed On 03-06-2025 9:29:34 EDT by RAMIRO WALLS M.D. Dictated By: RAMIRO WALLS Signed By: 03/06/25928 DD/ 06 TD/TT: Raised Printer: [facility] ECG 12-LEADOrdered By: Radio logist Radiology on 03-06-2025 [facility] Work Phone: ECG 12-LEADon 03-05-2025 Radiology Study observation (narrative) [facility] BASIC METABOLIC PANELon 09-14 Anion gap [Moles/Vol] 8 mmol/L Normal 7-20 [facility] Comment on above: Performed By: #### L [id number] #### [facility] ([place]) [address] [place] [address] Calcium [Mass/Vol] 9.7 mg/dL Normal 8.6-10.3 [facility] Comment on above: Performed By: #### L [id number] #### [facility] ([facility]) [address] [place] [address] Chloride [Moles/Vol] 97 mmol/L Low 98-107 [facility] Comment on above: Performed By: #### L [id number] #### [facility] ([facility]) [address] [place] [address] CO2 [Moles/Vol] 35 mmol/L High 21-31 [facility] Comment on above: Performed By: #### L [id number] #### [facility] ([facility]) [address] [place] [address] Creatinine [Mass/Vol] 1.02 mg/dL Normal 0.70-1.30 [facility] Comment on above: Performed By: #### L [id number] #### [facility] ([facility]) [address] [place] [address] GLOMERULAR FILTRATION RATE ML/MIN/1.73 SQ M.PREDICTED 86.8 mL/min/1.73m*2 Normal >60.0 [facility] Comment on above: Result Comment: [facility]???s estimated glomerular filtration rate (eGFR) will [...] Performed By: #### L [id number] #### [facility] ([facility]) [address] [place] [address] Glucose [Mass/Vol] 80 mg/dL Normal 70-100 [facility] Comment on above: Performed By: #### L [id number] #### [facility] ([facility]) [address] [place] [address] Potassium [Moles/Vol] 4.2 mmol/L Normal 3.5-5.1 [facility] Comment on above: Performed By: #### L [id number] #### [facility] ([facility]) [address] [place] [address] Sodium [Moles/Vol] 136 mmol/L Normal 136-145 [facility] Comment on above: Performed By: #### L [id number] #### [facility] ([facility]) [address] [place] [address] Urea nitrogen [Mass/Vol] 8 mg/dL Normal 7-25 [facility] Comment on above: Performed By: #### L [id number] #### [facility] ([facility]) [address] [place] [address] UREA NITROGEN/CREATININE (MASS RATIO) IN SER/PLAS 7.8 Normal [facility] Comment on above: Performed By: #### L [id number] #### [facility] ([facility]) [address] [place] [address] CBC WITH AUTO DIFFERENTIALon 10-11-2024 Basophils (Bld) [#/Vol] 0.06 10*3/uL Normal 0.00-0.20 [facility] Comment on above: Performed By: #### L [id number] ####[facility] ([facility])[address] [place] [address] Basophils/100 WBC (Bld) 0.9 % Normal 0.0-1.0 [facility] Comment on above: Performed By: #### L [id number] ####[facility] ([facility])[address] [place] [address] Eosinophils (Bld) [#/Vol] 0.21 10*3/uL Normal 0.00-0.50 [facility] Comment on above: Performed By: #### L [id number] ####[facility] ([facility])[address] [place] [address] Eosinophils/100 WBC (Bld) 3.0 % Normal 0.0-6.0 [facility] Comment on above: Performed By: #### L [id number] ####[facility] ([facility])[address] [place] [address] Erythrocyte distribution width (RBC) [Ratio] 16.7 % High 11.5-15.0 [facility] Comment on above: Performed By: #### L [id number] ####[facility] ([facility])[address] [place] [address] ERYTHROCYTE MEAN CORPUSCULAR HEMOGLOBIN CONCENTRATION (G/DL) BY AUTOMATED 29.9 g/dL Low 32.0-35.0 [facility] Comment on above: Performed By: #### L [id number] ####[facility] ([facility] [place] [address] Hematocrit (Bld) [Volume fraction] 44.5 % Normal 39.0-55.0 [facility] Comment on above: Performed By: #### L [id number] ####[facility] ([facility])[address] [place] [address] Hemoglobin (Bld) [Mass/Vol] 13.3 g/dL Normal 13.0-17.0 [facility] Comment on above: Performed By: #### L [id number] ####[facility] ([facility])[address] [place] [address] Immature granulocytes (Bld) [#/Vol] 0.11 10*3/uL Normal 0.00-0.20 [facility] Comment on above: Performed By: #### L [id number] ####[facility] ([facility])[address] [place] [address] Immature granulocytes/100 WBC (Bld) 1.6 % High 0.0-1.0 [facility] Comment on above: Performed By: #### L [id number] ####[facility] ([facility])[address] [place] [address] Lymphocytes (Bld) [#/Vol] 0.91 10*3/uL Low 1.20-4.00 [facility] Comment on above: Performed By: #### L [id number] ####[facility] ([facility])[address] [place] [address] Lymphocytes/100 WBC (Bld) 12.9 % Low 20.0-45.0 [facility] Comment on above: Performed By: #### L [id number] ####[facility] ([facility])[address] [place] [address] MCH (RBC) [Entitic mass] 26.9 pg Low 27.0-33.0 [facility] Comment on above: Performed By: #### L [id number] ####[facility] ([facility])[address] [place] [address] MCV (RBC) [Entitic vol] 89.9 fL Normal 82.0-98.0 [facility] Comment on above: Performed By: #### L [id number] ####[facility] ([facility])[address] [place] [address] Monocytes (Bld) [#/Vol] 0.65 10*3/uL Normal 0.10-1.00 [facility] Comment on above: Performed By: #### L [id number] ####[facility] ([facility])[address] [place] [address] Monocytes/100 WBC (Bld) 9.2 % Normal 5.0-12.0 [facility] Comment on above: Performed By: #### L [id number] ####[facility] ([facility])[address] [place] [address] Neutrophils (Bld) [#/Vol] 5.11 10*3/uL Normal 1.60-7.60 [facility] Comment on above: Performed By: #### L [id number] ####[facility] ([facility])[address] [place] [address] Neutrophils/100 WBC (Bld) 72.4 % High 40.0-72.0 [facility] Comment on above: Performed By: #### L [id number] ####[facility] ([facility])[address] [place] [address] NRBC (PER 100 WBCS) BY AUTOMATED COUNT 0.0 % Normal 0 [facility] Comment on above: Performed By: #### L [id number] ####[facility] ([facility])[address] [place] [address] PLATELETS (10*3/UL) IN BLOOD AUTOMATED COUNT 218 10*3/uL Normal 150-400 [facility] Comment on above: Performed By: #### L [id number] ####[facility] ([facility])[address] [place] [address] RBC (Bld) [#/Vol] 4.95 10*6/uL Normal 4.20-5.70 [facility] Comment on above: Performed By: #### L [id number] ####[facility] ([facility])[address] [place] [address] WBC (Bld) [#/Vol] 7.05 10*3/uL Normal 4.00-10.60 [facility] Comment on above: Performed By: #### L [id number] ####[facility] ([facility])[address] [place] [address] BASIC METABOLIC PANELon -2 Anion gap [Moles/Vol] 9 mmol/L Normal 7-20 [facility] Comment on above: Performed By: #### L [id number] #### [facility] ([facility] [address] [place] [address] Calcium [Mass/Vol] 9.5 mg/dL Normal 8.6-10.3 [facility] Comment on above: Performed By: #### L [id number] #### [facility] ([facility] [address] [place] [address] Chloride [Moles/Vol] 96 mmol/L Low 98-107 [facility] Comment on above: Performed By: #### L [id number] #### [facility] ([facility] [address] [place] [address] CO2 [Moles/Vol] 34 mmol/L High 21-31 [facility] Comment on above: Performed By: #### L [id number] #### [facility] ([facility]) [address] [place] [address] Creatinine [Mass/Vol] 0.93 mg/dL Normal 0.70-1.30 [facility] Comment on above: Performed By: #### L [id number] #### [facility] ([facility]) [address] [place] [address] GLOMERULAR FILTRATION RATE ML/MIN/1.73 SQ M.PREDICTED 97.0 mL/min/1.73m*2 Normal >60.0 [facility] Comment on above: Result Comment: [facility]???s estimated glomerular filtration rate (eGFR) will [...] Performed By: #### L [id number] #### [facility] ([facility] [address] [place] [address] Glucose [Mass/Vol] 85 mg/dL Normal 70-100 [facility] Comment on above: Performed By: #### L [id number] #### [facility] ([facility] [address] [place] [address] Potassium [Moles/Vol] 4.0 mmol/L Normal 3.5-5.1 [facility] Comment on above: Performed By: #### L [id number] #### [facility] ([facility] [address] [place] [address] Sodium [Moles/Vol] 135 mmol/L Low 136-145 [facility] Comment on above: Performed By: #### L [id number] #### [facility] ([facility]) [address] [place] [address] Urea nitrogen [Mass/Vol] 8 mg/dL Normal 7-25 [facility] Comment on above: Performed By: #### L [id number] #### [facility] ([facility]) [address] [place] [address] UREA NITROGEN/CREATININE (MASS RATIO) IN SER/PLAS 8.6 Normal [facility] Comment on above: Performed By: #### L [id number] #### [facility] ([facility]) [address] [place] [address] C-REACTIVE PROTEINon 025 C REACTIVE PROTEIN (MG/L) IN SER/PLAS 11.5 mg/L High <=5.0 [facility] Comment on above: Result Comment: Test ing performed using a new methodology, turbidimetry. Normal ranges have been updated. Old normal range was <8 mg/L. Performed By: #### L [id number] #### [facility] ([facility]) [address] [place] [address] CBC WITH AUTO DIFFERENTIALon 10-10-2024 Basophils (Bld) [#/Vol] 0.08 10*3/uL Normal 0.00-0.20 [facility] Comment on above: Performed By: #### L [id number] ####[facility] ([facility])[address] [place] [address] Basophils/100 WBC (Bld) 1.1 % High 0.0-1.0 [facility] Comment on above: Performed By: #### L [id number] ####[facility] ([facility])[address] [place] [address] Eosinophils (Bld) [#/Vol] 0.19 10*3/uL Normal 0.00-0.50 [facility] Comment on above: Performed By: #### L [id number] ####[facility] ([facility])[address] [place] [address] Eosinophils/100 WBC (Bld) 2.7 % Normal 0.0-6.0 [facility] Comment on above: Performed By: #### L [id number] ####[facility] ([facility])[address] [place] [address] Erythrocyte distribution width (RBC) [Ratio] 16.6 % High 11.5-15.0 [facility] Comment on above: Performed By: #### L [id number] ####[facility] ([facility])[address] [place] [address] ERYTHROCYTE MEAN CORPUSCULAR HEMOGLOBIN CONCENTRATION (G/DL) BY AUTOMATED 30.1 g/dL Low 32.0-35.0 [facility] Comment on above: Performed By: #### L [id number] ####[facility] ([facility])[address] [place] [address] Hematocrit (Bld) [Volume fraction] 44.5 % Normal 39.0-55.0 [facility] Comment on above: Performed By: #### L [id number] ####[facility] ([facility])[address] [place] [address] Hemoglobin (Bld) [Mass/Vol] 13.4 g/dL Normal 13.0-17.0 [facility] Comment on above: Performed By: #### L [id number] ####[facility] ([facility])[address] [place] [address] Immature granulocytes (Bld) [#/Vol] 0.10 10*3/uL Normal 0.00-0.20 [facility] Comment on above: Performed By: #### L [id number] ####[facility] ([facility])[address] [place] [address] Immature granulocytes/100 WBC (Bld) 1.4 % High 0.0-1.0 [facility] Comment on above: Performed By: #### L [id number] ####[facility] ([facility])[address] [place] [address] Lymphocytes (Bld) [#/Vol] 0.90 10*3/uL Low 1.20-4.00 [facility] Comment on above: Performed By: #### L [id number] ####[facility] ([facility])[address] [place] [address] Lymphocytes/100 WBC (Bld) 12.8 % Low 20.0-45.0 [facility] Comment on above: Performed By: #### L [id number] ####[facility] ([facility])[address] [place] [address] MCH (RBC) [Entitic mass] 26.9 pg Low 27.0-33.0 [facility] Comment on above: Performed By: #### L [id number] ####[facility] ([facility])[address] [place] [address] MCV (RBC) [Entitic vol] 89.4 fL Normal 82.0-98.0 [facility] Comment on above: Performed By: #### L [id number] ####[facility] ([facility])[address] [place] [address] Monocytes (Bld) [#/Vol] 0.60 10*3/uL Normal 0.10-1.00 [facility] Comment on above: Performed By: #### L [id number] ####[facility] ([facility])[address] [place] [address] Monocytes/100 WBC (Bld) 8.5 % Normal 5.0-12.0 [facility] Comment on above: Performed By: #### L [id number] ####[facility] ([facility])[address] [place] [address] Neutrophils (Bld) [#/Vol] 5.17 10*3/uL Normal 1.60-7.60 [facility] Comment on above: Performed By: #### L [id number] ####[facility] ([facility])[address] [place] [address] Neutrophils/100 WBC (Bld) 73.5 % High 40.0-72.0 [facility] Comment on above: Performed By: #### L [id number] ####[facility] ([facility])[address] [place] [address] NRBC (PER 100 WBCS) BY AUTOMATED COUNT 0.0 % Normal 0 [facility] Comment on above: Performed By: #### L [id number] ####[facility] ([facility])[address] [place] [address] PLATELETS (10*3/UL) IN BLOOD AUTOMATED COUNT 243 10*3/uL Normal 150-400 [facility] Comment on above: Performed By: #### L [id number] ####[facility] ([facility])[address] [place] [address] RBC (Bld) [#/Vol] 4.98 10*6/uL Normal 4.20-5.70 [facility] Comment on above: Performed By: #### L [id number] ####[facility] ([facility])[address] [place] [address] WBC (Bld) [#/Vol] 7.04 10*3/uL Normal 4.00-10.60 [facility] Comment on above: Performed By: #### L [id number] ####[facility] ([facility])[address] [place] [address] SEDIMENTATION RATEon 025 SEDIMENTATION RATE, ERYTHROCYTE 54 mm/hr High <20 [facility] Comment on above: Performed By: #### L [id number] #### [facility] ([facility]) [address] [place] [address] VANCOMYCIN, PEAKon 5 VANCOMYCIN (UG/ML) IN SER/PLAS - PEAK 23.0 ug/mL Normal 20.0-50.0 [facility] Comment on above: Performed By: #### L [id number] #### [facility] ([facility] [address] [place] [address] VANCOMYCIN, TROUGHon 025 VANCOMYCIN (UG/ML) IN SER/PLAS - TROUGH 19.2 ug/mL Normal 5.0-20.0 [facility] Comment on above: Performed By: #### L [id number] #### [facility] ([facility]) [address] [place] [address] 36on 10-09-2024 36 Spoke with facility and patient was admitted back here at [facility] yesterday. They will call back if they need any orders. Normal [facility] BASIC METABOLIC PANELon 09-14 Anion gap [Moles/Vol] 9 mmol/L Normal 04-01 [facility] Comment on above: Performed By: #### L [id number] ####[facility] ([facility])[address] [place] [address] Calcium [Mass/Vol] 9.4 mg/dL Normal 8.6-10.3 [facility] Comment on above: Performed By: #### L [id number] ####[facility] ([facility])[address] [place] [address] Chloride [Moles/Vol] 96 mmol/L Low 98-107 [facility] Comment on above: Performed By: #### L [id number] ####[facility] ([facility])[address] [place] [address] CO2 [Moles/Vol] 36 mmol/L High 21-31 [facility] Comment on above: Performed By: #### L [id number] ####[facility] ([facility])[address] [place] [address] Creatinine [Mass/Vol] 0.98 mg/dL Normal 0.70-1.30 [facility] Comment on above: Performed By: #### L [id number] ####[facility] ([facility])[address] [place] [address] GLOMERULAR FILTRATION RATE ML/MIN/1.73 SQ M.PREDICTED 91.1 mL/min/1.73m*2 Normal >60.0 [facility] Comment on above: Result Comment: [facility]???s estimated glomerular filtration rate (eGFR) will [...] individuals. Performed By: #### L [id number] ####[facility] ([facility])[address] [place] [address] Glucose [Mass/Vol] 90 mg/dL Normal 70-100 [facility] Comment on above: Performed By: #### L [id number] ####[facility] ([facility])[address] [place] [address] Potassium [Moles/Vol] 4.0 mmol/L Normal 3.5-5.1 [facility] Comment on above: Performed By: #### L [id number] ####[facility] ([facility])[address] [place] [address] Sodium [Moles/Vol] 137 mmol/L Normal 136-145 [facility] Comment on above: Performed By: #### L [id number] ####[facility] ([facility])[address] [place] [address] Urea nitrogen [Mass/Vol] 7 mg/dL Normal 7-25 [facility] Comment on above: Performed By: #### L [id number] ####[facility] ([facility])[address] [place] [address] UREA NITROGEN/CREATININE (MASS RATIO) IN SER/PLAS 7.1 Normal [facility] Comment on above: Performed By: #### L [id number] ####[facility] ([facility])[address] [place] [address] CBCon 10-09-2024 Erythrocyte distribution width (RBC) [Ratio] 16.2 % High 11.5-15.0 [facility] Comment on above: Performed By: #### L [id number] #### [facility] ([facility] [address] [place] [address] ERYTHROCYTE MEAN CORPUSCULAR HEMOGLOBIN CONCENTRATION (G/DL) BY AUTOMATED 30.5 g/dL Low 32.0-35.0 [facility] Comment on above: Performed By: #### L [id number] #### [facility] ([facility] [address] [place] [address] Hematocrit (Bld) [Volume fraction] 42.0 % Normal 39.0-55.0 [facility] Comment on above: Performed By: #### L [id number] #### [facility] ([facility]) [address] [place] [address] Hemoglobin (Bld) [Mass/Vol] 12.8 g/dL Low 13.0-17.0 [facility] Comment on above: Performed By: #### L [id number] #### [facility] ([facility]) [address] [place] [address] MCH (RBC) [Entitic mass] 26.9 pg Low 27.0-33.0 [facility] Comment on above: Performed By: #### L [id number] #### [facility] ([facility]) [address] [place] [address] MCV (RBC) [Entitic vol] 88.2 fL Normal 82.0-98.0 [facility] Comment on above: Performed By: #### L [id number] #### [facility] ([facility]) [address] [place] [address] PLATELETS (10*3/UL) IN BLOOD AUTOMATED COUNT 240 10*3/uL Normal 150-400 [facility] Comment on above: Performed By: #### L [id number] #### [facility] ([facility]) [address] [place] [address] RBC (Bld) [#/Vol] 4.76 10*6/uL Normal 4.20-5.70 [facility] Comment on above: Performed By: #### L [id number] #### [facility] ([facility]) [address] [place] [address] WBC (Bld) [#/Vol] 8.22 10*3/uL Normal 4.00-10.60 [facility] Comment on above: Performed By: #### L [id number] #### [facility] ([facility]) [address] [place] [address] MAGNESIUMon 10-09-2024 Magnesium [Mass/Vol] 2.0 mg/dL Normal 1.9-2.7 [facility] Comment on above: Performed By: #### L [id number] #### [facility] ([facility]) [address] [place] [address] BLOOD CULTUREon 10-08-2024 Bacteria identified Cx Nom (Bld) No growth at 5 days Normal [facility] Comment on above: Performed By: #### L [id number] ####[facility] ([facility])[place] [address] Order Comment: From a different site than #1. Performed By: #### L [id number] #### [facility] ([facility]) [place] [address] C-REACTIVE PROTEINon 025 C REACTIVE PROTEIN (MG/L) IN SER/PLAS 26.6 mg/L High <=5.0 [facility] Comment on above: Result Comment: Test ing performed using a new methodology, turbidimetry. Normal ranges have been updated. Old normal range was <8 mg/L. Performed By: #### L [id number] ####[facility] ([facility])[address] [place] [address] CBC WITH AUTO DIFFERENTIALon 10-08-2024 Basophils (Bld) [#/Vol] 0.06 10*3/uL Normal 0.00-0.20 [facility] Comment on above: Performed By: #### L [id number] #### [facility] ([facility]) [address] [place] [address] Basophils/100 WBC (Bld) 0.8 % Normal 0.0-1.0 [facility] Comment on above: Performed By: #### L [id number] #### [facility] ([facility]) [address] [place] [address] Eosinophils (Bld) [#/Vol] 0.17 10*3/uL Normal 0.00-0.50 [facility] Comment on above: Performed By: #### L [id number] #### [facility] ([facility]) [address] [place] [address] Eosinophils/100 WBC (Bld) 2.3 % Normal 0.0-6.0 [facility] Comment on above: Performed By: #### L [id number] #### [facility] ([facility]) [address] [place] [address] Erythrocyte distribution width (RBC) [Ratio] 16.0 % High 11.5-15.0 [facility] Comment on above: Performed By: #### L [id number] #### [facility] ([facility]) [address] [place] [address] ERYTHROCYTE MEAN CORPUSCULAR HEMOGLOBIN CONCENTRATION (G/DL) BY AUTOMATED 30.3 g/dL Low 32.0-35.0 [facility] Comment on above: Performed By: #### L [id number] #### [facility] ([facility]) [address] [place] [address] Hematocrit (Bld) [Volume fraction] 40.9 % Normal 39.0-55.0 [facility] Comment on above: Performed By: #### L [id number] #### [facility] ([facility]) [address] [place] [address] Hemoglobin (Bld) [Mass/Vol] 12.4 g/dL Low 13.0-17.0 [facility] Comment on above: Performed By: #### L [id number] #### [facility] ([facility] [address] [place] [address] Immature granulocytes (Bld) [#/Vol] 0.10 10*3/uL Normal 0.00-0.20 [facility] Comment on above: Performed By: #### L [id number] #### [facility] ([facility] [address] [place] [address] Immature granulocytes/100 WBC (Bld) 1.4 % High 0.0-1.0 [facility] Comment on above: Performed By: #### L [id number] #### [facility] ([facility] [address] [place] [address] Lymphocytes (Bld) [#/Vol] 0.73 10*3/uL Low 1.20-4.00 [facility] Comment on above: Performed By: #### L [id number] #### [facility] ([facility]) [address] [place] [address] Lymphocytes/100 WBC (Bld) 10.0 % Low 20.0-45.0 [facility] Comment on above: Performed By: #### L [id number] #### [facility] ([facility]) [address] [place] [address] MCH (RBC) [Entitic mass] 26.7 pg Low 27.0-33.0 [facility] Comment on above: Performed By: #### L [id number] #### [facility] ([facility]) [address] [place] [address] MCV (RBC) [Entitic vol] 88.0 fL Normal 82.0-98.0 [facility] Comment on above: Performed By: #### L [id number] #### [facility] ([facility]) [address] [place] [address] Monocytes (Bld) [#/Vol] 0.52 10*3/uL Normal 0.10-1.00 [facility] Comment on above: Performed By: #### L [id number] #### [facility] ([facility]) [address] [place] [address] Monocytes/100 WBC (Bld) 7.1 % Normal 5.0-12.0 [facility] Comment on above: Performed By: #### L [id number] #### [facility] ([facility] [address] [place] [address] Neutrophils (Bld) [#/Vol] 5.73 10*3/uL Normal 1.60-7.60 [facility] Comment on above: Performed By: #### L [id number] #### [facility] ([facility] [address] [place] [address] Neutrophils/100 WBC (Bld) 78.4 % High 40.0-72.0 [facility] Comment on above: Performed By: #### L [id number] #### [facility] ([facility]) [address] [place] [address] NRBC (PER 100 WBCS) BY AUTOMATED COUNT 0.0 % Normal 0 [facility] Comment on above: Performed By: #### L [id number] #### [facility] ([facility]) [address] [place] [address] PLATELETS (10*3/UL) IN BLOOD AUTOMATED COUNT 231 10*3/uL Normal 150-400 [facility] Comment on above: Performed By: #### L [id number] #### [facility] ([facility]) [address] [place] [address] RBC (Bld) [#/Vol] 4.65 10*6/uL Normal 4.20-5.70 [facility] Comment on above: Performed By: #### L [id number] #### [facility] ([facility]) [address] [place] [address] WBC (Bld) [#/Vol] 7.31 10*3/uL Normal 4.00-10.60 [facility] Comment on above: Performed By: #### L [id number] #### [facility] ([facility] [address] [place] [address] COMPREHENSIVE METABOLIC PANE Clif 10-08-2024 Albumin [Mass/Vol] 3.7 g/dL Normal 3.5-5.7 [facility] Comment on above: Performed By: #### L [id number] #### [facility] ([facility] [address] [place] [address] ALP [Catalytic activity/Vol] 130 U/L High 34-104 [facility] Comment on above: Performed By: #### L [id number] #### [facility] ([facility]) [address] [place] [address] ALT [Catalytic activity/Vol] 14 U/L Normal 7-52 [facility] Comment on above: Performed By: #### L [id number] #### [facility] ([facility]) [address] [place] [address] Anion gap [Moles/Vol] 9 mmol/L Normal 7-20 [facility] Comment on above: Performed By: #### L [id number] #### [facility] ([facility]) [address] [place] [address] AST [Catalytic activity/Vol] 19 U/L Normal 13-39 [facility] Comment on above: Performed By: #### L [id number] #### [facility] ([facility]) [address] [place] [address] Bilirubin [Mass/Vol] 0.7 mg/dL Normal 0.3-1.0 [facility] Comment on above: Performed By: #### L [id number] #### [facility] ([facility]) [address] [place] [address] Calcium [Mass/Vol] 9.5 mg/dL Normal 8.6-10.3 [facility] Comment on above: Performed By: #### L [id number] #### [facility] ([facility]) [address] [place] [address] Chloride [Moles/Vol] 99 mmol/L Normal 98-107 [facility] Comment on above: Performed By: #### L [id number] #### [facility] ([facility]) [address] [place] [address] CO2 [Moles/Vol] 37 mmol/L High 21-31 [facility] Comment on above: Performed By: #### L [id number] #### [facility] ([facility] [address] [place] [address] Creatinine [Mass/Vol] 0.96 mg/dL Normal 0.70-1.30 [facility] Comment on above: Performed By: #### L [id number] #### [facility] ([facility]) [address] [place] [address] GLOMERULAR FILTRATION RATE ML/MIN/1.73 SQ M.PREDICTED 93.3 mL/min/1.73m*2 Normal >60.0 [facility] Comment on above: Result Comment: [facility]???s estimated glomerular filtration rate (eGFR) will [...] Performed By: #### L [id number] #### [facility] ([facility]) [address] [place] [address] Glucose [Mass/Vol] 83 mg/dL Normal 70-100 [facility] Comment on above: Performed By: #### L [id number] #### [facility] ([facility]) [address] [place] [address] Potassium [Moles/Vol] 4.2 mmol/L Normal 3.5-5.1 [facility] Comment on above: Performed By: #### L [id number] #### [facility] ([facility]) [address] [place] [address] Protein [Mass/Vol] 7.1 g/dL Normal 6.0-8.3 [facility] Comment on above: Performed By: #### L [id number] #### [facility] ([facility] [address] [place] [address] Sodium [Moles/Vol] 141 mmol/L Normal 136-145 [facility] Comment on above: Performed By: #### L [id number] #### [facility] ([facility]) [address] [place] [address] Urea nitrogen [Mass/Vol] 10 mg/dL Normal 7- [facility] Comment on above: Performed By: #### L [id number] #### [facility] ([facility]ER) [address] [place] [address] UREA NITROGEN/CREATININE (MASS RATIO) IN SER/PLAS 10.4 Normal [facility] Comment on above: Performed By: #### L [id number] #### [facility] ([facility] [address] [place] [address] CONSULTon 10-08-2024 CONSULT -- Attestation signed by [...] mg ta (more content not included)... Normal [facility] EDNURSon 10-08-2024 EDNURS Arrival: transfer fr [facility] ED Complaint: cellulitis to right leg, hx surgery on 09/24 Notes: patient arrived on this day [facility] from [facility] for pain to the right leg. Previous surgery at [facility] on 09/24 for right leg tib/fib fracture. Per [place] staff, patient arrived with increased pain, redness and swelling to right lower extremity. Ultrasound was negative for DVT. [place] ED treated for cellulitis, administered dose of zosyn at 0330, vancomycin at 2030 and 5mg oxycontin at 1930. Patient endorsed non-compliance, did not have post surgery follow up appointment and has been putting weight on leg. History of hypertension, patient O2 desat to 88% when sleeping. Per [place], patient non-compliant with bipap. Upon arrival, patient endorsed pain 8/10 and nausea. Patient denied chest pain, fever, chills and shortness of breath. Normal [facility] EDPROVon 10-08-2024 EDPROV [facility] [address] [facility] [address] EMERGENCY DEPARTMENT ENCOUNTER CHIEF COMPLAINT Chief Complaint Patient presents with Cellulitis HISTORY OF PRESENT ILLNESS Matty Graces is a 54 y.o. male who presents with a Chief Complaint Patient presents with Cellulitis REVIEW OF SYSTEMS Review of Systems Musculoskeletal: Positive for arthralgias. Skin: Positive for rash. All other systems reviewed and are negative. The patient is a 54-year-old male who was transferred from [facility] for cellulitis involving recent right lower extremity surgery. Patient had surgical pair of a tibia fracture on September 24. The patient states that he went to [place] emergency department today due to increased swelling. Patient was given Zosyn and vancomycin at [facility]. Patient states that he is having [...] distress. B (more content not included)... Normal [facility] MAGNESIUMon 10-08-2024 Magnesium [Mass/Vol] 1.8 mg/dL Low 1.9-2.7 [facility] Comment on above: Performed By: #### L [id number] #### [facility] ([facility]) [address] [place] [address] SEDIMENTATION RATEon 025 SEDIMENTATION RATE, ERYTHROCYTE 56 mm/hr High <20 [facility] Comment on above: Performed By: #### L [id number] #### [facility] ([facility]) [address] [place] [address] VITAMIN D 25 HYDROXYon 10-08 CALCIDIOL (25 [place] VITAMIN D3) (NG/ML) IN SER/PLAS 37.0 ng/mL Normal 30.0-80.0 [facility] Comment on above: Result Comment: >80. 0 Toxicity possible Performed By: #### L [id number] ####[facility] ([facility])[address] [place] [address] 36on 10-04-2024 36 [facility] call ed and is seeing the patient for wound care, PT, and OT. Seeing patient a couple times a week could specify a number of times. States is also doing dressing changes. [phone] Normal [facility] Telephoneon 10-04-2024 Telephone [phone] Francisco Javier Garces 1970 M Date Provider Department Center 10/04/2024 [id number]-EOVZGUMATT MCCORM[facility] No family history on file Reason for Visit and Comments: Information [Other] Normal [facility] 36on 09-29-2024 36 Patient in home PT called and wanted to confirm if Dr. Hahn does the in home therapy approvals/orders or if he had to follow up with his PCP, jingle writer informed her he does. Patient is scheduled for 10/05/24. Normal [facility] BASIC METABOLIC PANELon 09-13 Anion gap [Moles/Vol] 7 mmol/L Normal 7-20 [facility] Comment on above: Performed By: #### L [id number] ####[facility] ([facility])[address] [facility]VCreatorBoxDEPART[facility] [address] Calcium [Mass/Vol] 9.6 mg/dL Normal 8.6-10.3 [facility] Comment on above: Performed By: #### L [id number] ####[facility] ([facility])[address] [place] [address] Chloride [Moles/Vol] 98 mmol/L Normal 98-107 [facility] Comment on above: Performed By: #### L [id number] ####[facility] ([facility])[address] [place] [address] CO2 [Moles/Vol] 34 mmol/L High 21-31 [facility] Comment on above: Performed By: #### L [id number] ####[facility] ([facility])[address] [facility]oof[facility] [place] [address] Creatinine [Mass/Vol] 0.92 mg/dL Normal 0.70-1.30 [facility] Comment on above: Performed By: #### L [id number] ####[facility] ([facility])[address] [facility]ordit[place] [address] GLOMERULAR FILTRATION RATE ML/MIN/1.73 SQ M.PREDICTED 98.9 mL/min/1.73m*2 Normal >60.0 [facility] Comment on above: Result Comment: [facility]???s estimated glomerular filtration rate (eGFR) will [...] individuals. Performed By: #### L [id number] ####[facility] ([facility])[address] [place] [address] Glucose [Mass/Vol] 99 mg/dL Normal 70-100 [facility] Comment on above: Performed By: #### L [id number] ####[facility] ([facility])[address] [place] [address] Potassium [Moles/Vol] 4.3 mmol/L Normal 3.5-5.1 [facility] Comment on above: Performed By: #### L [id number] ####[facility] ([facility])[address] [place] [address] Sodium [Moles/Vol] 135 mmol/L Low 136-145 [facility] Comment on above: Performed By: #### L [id number] ####[facility] ([facility])[address] [place] [address] Urea nitrogen [Mass/Vol] 20 mg/dL Normal 7-25 [facility] Comment on above: Performed By: #### L [id number] ####[facility] ([facility])[address] [place] [address] UREA NITROGEN/CREATININE (MASS RATIO) IN SER/PLAS 21.7 Normal [facility] Comment on above: Performed By: #### L [id number] ####[facility] ([facility])[address] [place] [address] CBCon 09-28-2024 Erythrocyte distribution width (RBC) [Ratio] 15.3 % High 11.5-15.0 [facility] Comment on above: Performed By: #### L [id number] #### [facility] ([facility] [address] [place] [address] ERYTHROCYTE MEAN CORPUSCULAR HEMOGLOBIN CONCENTRATION (G/DL) BY AUTOMATED 30.9 g/dL Low 32.0-35.0 [facility] Comment on above: Performed By: #### L [id number] #### [facility] ([facility]) [address] [place] [address] Hematocrit (Bld) [Volume fraction] 44.4 % Normal 39.0-55.0 [facility] Comment on above: Performed By: #### L [id number] #### [facility] ([facility]) [address] [place] [address] Hemoglobin (Bld) [Mass/Vol] 13.7 g/dL Normal 13.0-17.0 [facility] Comment on above: Performed By: #### L [id number] #### [facility] ([facility]) [address] [place] [address] MCH (RBC) [Entitic mass] 26.5 pg Low 27.0-33.0 [facility] Comment on above: Performed By: #### L [id number] #### [facility] ([facility]) [address] [place] [address] MCV (RBC) [Entitic vol] 85.9 fL Normal 82.0-98.0 [facility] Comment on above: Performed By: #### L [id number] #### [facility] ([facility]) [address] [place] [address] PLATELETS (10*3/UL) IN BLOOD AUTOMATED COUNT 208 10*3/uL Normal 150-400 [facility] Comment on above: Performed By: #### L [id number] #### [facility] ([facility]) [address] [place] [address] RBC (Bld) [#/Vol] 5.17 10*6/uL Normal 4.20-5.70 [facility] Comment on above: Performed By: #### L [id number] #### [facility] ([facility] [address] [place] [address] WBC (Bld) [#/Vol] 10.65 10*3/uL High 4.00-10.60 [facility] Comment on above: Performed By: #### L [id number] #### [facility] ([facility]) [address] [place] [address] CONSULTon 09-28-2024 CONSULT Patient tried CPAP i [...] Referrals/Orders: Yes, Sleep Time Spent: 20 Normal [facility] DSon 09-28-2024 DS Admission Admitted 09/23/2024 for Fall, syncope Comminuted right tib/fib fracture CHF HTN Hypomagnesemia Enlarged right hilar node Enlarged prostate Discharge Diagnosis Fall, syncope Comminuted right tib/fib fracture CHF HTN Hypomagnesemia Enlarged right hilar node Enlarged prostate Obstructive sleep apnea Morbid obesity Atrial flutter, new onset Discharge Disposition Home-Health Care Sv (06) Discharge Medications Your medication list START [...] and with evening meal. cholecalciferol 50 MCG (1999) tablet Commonly known as: Vitamin D-3 Start [...] Medications These medications were sent to [facility] - [place], [place] - [address], [facility] [address] acetaminophen 500 mg tablet aspirin 81 mg [...] team was informed at approximately 1730 per [facility] that patient went into a-flutter and sustained for approximately 2 hours fro (more content not included)... [facility] EDPROVon 09-28-2024 EDPROV This report has been cancelled. [facility] Letter (Out)on 09-28-2024 Letter (Out) [id number] Francisco Javier Garces 1970 M Date Provider Department Center 09/28/2024 [id number], GENERIC PRO*INIT None No family history on file Normal [facility] MAGNESIUMon 09-28-2024 Magnesium [Mass/Vol] 2.0 mg/dL Normal 1.9-2.7 [facility] Comment on above: Performed By: #### L [id number] #### [facility] ([facility]AKER) [address] [place] [address] NURSNOTEon 09-28-2024 NURSNOTE PT signed AMA paperwork with trama team. Pt left with belongings and family. AMA paperwork in patient chart. Normal [facility] PHOSPHORUSon 09-28-2024 Magnesium [Mass/Vol] 3.3 mg/dL Normal 2.5-5.0 [facility] Comment on above: Performed By: #### L [id number] ####[facility] ([facility])[address] [place] [address] 30on 09-27-2024 30 The patient is Moderately [...] barriers include continue medications as ordered Normal [facility] 30 Daily Case Managemen t Update Multidisciplinary rounds have been completed. Barriers to Discharge: Pending clinical course; POD3 IMN; 4L NC. Patient refusing CPaP at rest/sleep, Pulm brennen consulted and following. PT/OT recommending IPR, PMR consulted and recommend IPR. Patient and spouse would like to go home with [facility]. Referrals sent, pending accepting [facility] agency>>Radha Mendenhall [facility] accepting. NURY recommended--ariadna mo, bedside commode--scripts written and face to face notes signed.>>need sent to [facility] for fulfillment. SW following. Diet: Dietary Orders [...] R tib fib facrture Level of Consultation Transmission Maintenance Supervisor assumes full responsibility 09/23/24 1231 09/23/24 1221 [...] muscular skeletal surgical procedure 09/24/24 1242 Normal [facility] 30 The patient is Moderately Stable [...] pain as ordered maintain safety precautions. Normal [facility] 30 The patient is Moderately Stable [...] and behaviors that affect risk of falls Mitchell fall precautions as indicated by assessment Educate patient/family on patient safety, including physical limitations Instruct patient to call for assistance with activity based on assessment Modify environment to reduce risk of injury Normal [facility] BASIC METABOLIC PANELon 09-13 Anion gap [Moles/Vol] 9 mmol/L Normal 7-20 [facility] Comment on above: Performed By: #### L [id number] #### [facility] ([facility]AKER) [address] [place] [address] Calcium [Mass/Vol] 9.3 mg/dL Normal 8.6-10.3 [facility] Comment on above: Performed By: #### L [id number] #### [facility] ([facility]AKER) [address] [place] [address] Chloride [Moles/Vol] 99 mmol/L Normal 98-107 [facility] Comment on above: Performed By: #### L [id number] #### [facility] ([facility]ER) [address] [place] [address] CO2 [Moles/Vol] 33 mmol/L High 21-31 [facility] Comment on above: Performed By: #### L [id number] #### [facility] ([facility]) [address] [place] [address] Creatinine [Mass/Vol] 0.89 mg/dL Normal 0.70-1.30 [facility] Comment on above: Performed By: #### L [id number] #### [facility] ([facility]) [address] [place] [address] GLOMERULAR FILTRATION RATE ML/MIN/1.73 SQ M.PREDICTED 101.8 mL/min/1.73m*2 Normal >60.0 [facility] Comment on above: Result Comment: [facility]???s estimated glomerular filtration rate (eGFR) will [...] Performed By: #### L [id number] #### [facility] ([facility]) [address] [place] [address] Glucose [Mass/Vol] 95 mg/dL Normal 70-100 [facility] Comment on above: Performed By: #### L [id number] #### [facility] ([facility]) [address] [facility] [place] [address] Potassium [Moles/Vol] 4.1 mmol/L Normal 3.5-5.1 [facility] Comment on above: Performed By: #### L [id number] #### [facility] ([facility]) [address] [place] [address] Sodium [Moles/Vol] 137 mmol/L Normal 136-145 [facility] Comment on above: Performed By: #### L [id number] #### [facility] ([facility]) [address] [place] [address] Urea nitrogen [Mass/Vol] 17 mg/dL Normal 7-25 [facility] Comment on above: Performed By: #### L [id number] #### [facility] ([facility] [address] [place] [address] UREA NITROGEN/CREATININE (MASS RATIO) IN SER/PLAS 19.1 Normal [facility] Comment on above: Performed By: #### L [id number] #### [facility] ([facility] [address] [place] [address] CBCon 09-27-2024 Erythrocyte distribution width (RBC) [Ratio] 15.4 % High 11.5-15.0 [facility] Comment on above: Performed By: #### L [id number] #### [facility] ([facility]) [address] [place] [address] ERYTHROCYTE MEAN CORPUSCULAR HEMOGLOBIN CONCENTRATION (G/DL) BY AUTOMATED 30.8 g/dL Low 32.0-35.0 [facility] Comment on above: Performed By: #### L [id number] #### [facility] ([facility]) [address] [place] [address] Hematocrit (Bld) [Volume fraction] 45.5 % Normal 39.0-55.0 [facility] Comment on above: Performed By: #### L [id number] #### [facility] ([facility] [address] [place] [address] Hemoglobin (Bld) [Mass/Vol] 14.0 g/dL Normal 13.0-17.0 [facility] Comment on above: Performed By: #### L [id number] #### [facility] ([facility] [address] [place] [address] MCH (RBC) [Entitic mass] 26.5 pg Low 27.0-33.0 [facility] Comment on above: Performed By: #### L [id number] #### [facility] (BEAKER) [address] [place] [address] MCV (RBC) [Entitic vol] 86.0 fL Normal 82.0-98.0 [facility] Comment on above: Performed By: #### L [id number] #### [facility] ([facility]) [address] [place] [address] PLATELETS (10*3/UL) IN BLOOD AUTOMATED COUNT 199 10*3/uL Normal 150-400 [facility] Comment on above: Performed By: #### L [id number] #### [facility] ([facility]) [address] [place] [address] RBC (Bld) [#/Vol] 5.29 10*6/uL Normal 4.20-5.70 [facility] Comment on above: Performed By: #### L [id number] #### [facility] ([facility]) [address] [place] [address] WBC (Bld) [#/Vol] 10.21 10*3/uL Normal 4.00-10.60 [facility] Comment on above: Performed By: #### L [id number] #### [facility] ([facility]) [address] [place] [address] MAGNESIUMon 09-27-2024 Magnesium [Mass/Vol] 1.9 mg/dL Normal 1.9-2.7 [facility] Comment on above: Performed By: #### L [id number] #### [facility] ([facility]) [address] [place] [address] PHOSPHORUSon 09-27-2024 Magnesium [Mass/Vol] 4.4 mg/dL Normal 2.5-5.0 [facility] Comment on above: Performed By: #### L [id number] #### [facility] ([facility]) [address] [facility] [place] [address] VENOUS BLOOD GAS WITH IONIZE D CALCIUMon 09-27-2024 Base excess Calc (BldV) [Moles/Vol] 9.2 mmol/L Normal [facility] Comment on above: Performed By: #### L [id number] ####[facility] [id number] [place] [address] [facility] CALCIUM IONIZED (MMOL/L) IN BLOOD 1.27 mmol/L Normal 1.15-1.33 [facility] Comment on above: Performed By: #### L [id number] ####[facility] [id number] [place] [address] [facility] CO2 (BldV) [Partial pressure] 50 mm[Hg] Normal 40-50 [facility] Comment on above: Performed By: #### L [id number] ####[facility] [id number] [place] [address] [facility] HCO3 (Bld) [Moles/Vol] 34.8 mmol/L Normal [facility] Comment on above: Performed By: #### L [id number] ####[facility] [id number] [place] [address] [facility] Oxygen (BldV) [Partial pressure] 53 mm[Hg] High 35-45 [facility] Comment on above: Performed By: #### L [id number] ####[facility] [id number] [place] [address] [facility] OXYGEN SATURATION (%) IN VENOUS BLOOD 87.1 % High 65.0-75.0 [facility] Comment on above: Performed By: #### L [id number] ####[facility] [id number] [place] [address] [facility] PH OF VENOUS BLOOD 7.45 High 7.31-7.41 [facility] Comment on above: Performed By: #### L [id number] ####[facility] [id number] [place] [address] [facility] BASIC METABOLIC PANELon 09-13 Anion gap [Moles/Vol] 8 mmol/L Normal 7-20 [facility] Comment on above: Performed By: #### L [id number] #### [facility] ([facility]ER) [address] [place] [address] Calcium [Mass/Vol] 9.4 mg/dL Normal 8.6-10.3 [facility] Comment on above: Performed By: #### L [id number] #### [facility] ([facility]) [address] [place] [address] Chloride [Moles/Vol] 99 mmol/L Normal 98-107 [facility] Comment on above: Performed By: #### L [id number] #### [facility] ([facility]) [address] [place] [address] CO2 [Moles/Vol] 36 mmol/L High 21-31 [facility] Comment on above: Performed By: #### L [id number] #### [facility] ([facility]) [address] [place] [address] Creatinine [Mass/Vol] 0.91 mg/dL Normal 0.70-1.30 [facility] Comment on above: Performed By: #### L [id number] #### [facility] ([facility]) [address] [place] [address] GLOMERULAR FILTRATION RATE ML/MIN/1.73 SQ M.PREDICTED 100.2 mL/min/1.73m*2 Normal >60.0 [facility] Comment on above: Result Comment: [facility]???s estimated glomerular filtration rate (eGFR) will [...] Performed By: #### L [id number] #### [facility] ([facility]) [address] [place] [address] Glucose [Mass/Vol] 85 mg/dL Normal 70-100 [facility] Comment on above: Performed By: #### L [id number] #### [facility] ([facility]) [address] [place] [address] Potassium [Moles/Vol] 3.8 mmol/L Normal 3.5-5.1 [facility] Comment on above: Performed By: #### L [id number] #### [facility] ([facility] [address] [place] [address] Sodium [Moles/Vol] 139 mmol/L Normal 136-145 [facility] Comment on above: Performed By: #### L [id number] #### [facility] ([facility] [address] [place] [address] Urea nitrogen [Mass/Vol] 18 mg/dL Normal 7-25 [facility] Comment on above: Performed By: #### L [id number] #### [facility] ([facility]) [address] [place] [address] UREA NITROGEN/CREATININE (MASS RATIO) IN SER/PLAS 19.8 Normal [facility] Comment on above: Performed By: #### L [id number] #### [facility] ([facility]) [address] [place] [address] CBCon 09-26-2024 Erythrocyte distribution width (RBC) [Ratio] 15.4 % High 11.5-15.0 [facility] Comment on above: Performed By: #### L [id number] #### [facility] ([facility] [address] [place] [address] ERYTHROCYTE MEAN CORPUSCULAR HEMOGLOBIN CONCENTRATION (G/DL) BY AUTOMATED 31.1 g/dL Low 32.0-35.0 [facility] Comment on above: Performed By: #### L [id number] #### [facility] ([facility]) [address] [place] [address] Hematocrit (Bld) [Volume fraction] 43.8 % Normal 39.0-55.0 [facility] Comment on above: Performed By: #### L [id number] #### [facility] ([facility] [address] [place] [address] Hemoglobin (Bld) [Mass/Vol] 13.6 g/dL Normal 13.0-17.0 [facility] Comment on above: Performed By: #### L [id number] #### [facility] ([facility]) [address] [place] [address] MCH (RBC) [Entitic mass] 26.3 pg Low 27.0-33.0 [facility] Comment on above: Performed By: #### L [id number] #### [facility] ([facility]) [address] [place] [address] MCV (RBC) [Entitic vol] 84.7 fL Normal 82.0-98.0 [facility] Comment on above: Performed By: #### L [id number] #### [facility] ([facility]) [address] [place] [address] PLATELETS (10*3/UL) IN BLOOD AUTOMATED COUNT 186 10*3/uL Normal 150-400 [facility] Comment on above: Performed By: #### L [id number] #### [facility] ([facility]) [address] [place] [address] RBC (Bld) [#/Vol] 5.17 10*6/uL Normal 4.20-5.70 [facility] Comment on above: Performed By: #### L [id number] #### [facility] ([facility]) [address] [place] [address] WBC (Bld) [#/Vol] 9.63 10*3/uL Normal 4.00-10.60 [facility] Comment on above: Performed By: #### L [id number] #### [facility] ([facility]) [address] [place] [address] MAGNESIUMon 09-26-2024 Magnesium [Mass/Vol] 1.9 mg/dL Normal 1.9-2.7 [facility] Comment on above: Performed By: #### L [id number] #### [facility] ([facility] [address] [place] [address] PHOSPHORUSon 09-26-2024 Magnesium [Mass/Vol] 2.6 mg/dL Normal 2.5-5.0 [facility] Comment on above: Performed By: #### L [id number] #### [facility] ([facility]ER) [address] [place] [address] 30on 09-25-2024 30 Problem: Pain - Adul [...] barriers include consult for respiratory therapy. Normal [facility] 30 Daily Case Managemen t Update [...] spouse would like to go home with [facility]. Referrals sent, pending accepting [facility] agency. DME recommended--gabrielle khalil, ariadna kilgore, bedside [...] R tib fib facrture Level of Consultation Transmission Maintenance Supervisor assumes full responsibility 09/23/24 1231 09/23/24 1221 [...] muscular skeletal surgical procedure 09/24/24 1242 Normal [facility] BASIC METABOLIC PANELon 09-13 Anion gap [Moles/Vol] 9 mmol/L Normal 7-20 [facility] Comment on above: Performed By: #### L [id number] ####[facility] ([facility])[address] [place] [address] Calcium [Mass/Vol] 8.9 mg/dL Normal 8.6-10.3 [facility] Comment on above: Performed By: #### L [id number] ####[facility] ([facility] [place] [address] Chloride [Moles/Vol] 97 mmol/L Low 98-107 [facility] Comment on above: Performed By: #### L [id number] ####[facility] (BEAKER)[address] [place] [address] CO2 [Moles/Vol] 32 mmol/L High 21-31 [facility] Comment on above: Performed By: #### L [id number] ####[facility] (BEAKER)[address] [place] [address] Creatinine [Mass/Vol] 0.91 mg/dL Normal 0.70-1.30 [facility] Comment on above: Performed By: #### L [id number] ####[facility] ([facility])[address] [place] [address] GLOMERULAR FILTRATION RATE ML/MIN/1.73 SQ M.PREDICTED 100.2 mL/min/1.73m*2 Normal >60.0 [facility] Comment on above: Result Comment: [facility]???s estimated glomerular filtration rate (eGFR) will [...] individuals. Performed By: #### L [id number] ####[facility] ([facility])[address] [place] [address] Glucose [Mass/Vol] 141 mg/dL High 70-100 [facility] Comment on above: Performed By: #### L [id number] ####[facility] ([facility])[address] [place] [address] Potassium [Moles/Vol] 4.2 mmol/L Normal 3.5-5.1 [facility] Comment on above: Performed By: #### L [id number] ####[facility] ([facility])[address] [place] [address] Sodium [Moles/Vol] 134 mmol/L Low 136-145 [facility] Comment on above: Performed By: #### L [id number] ####[facility] ([facility] [place] [address] Urea nitrogen [Mass/Vol] 15 mg/dL Normal 7-25 [facility] Comment on above: Performed By: #### L [id number] ####[facility] ([facility] [place] [address] UREA NITROGEN/CREATININE (MASS RATIO) IN SER/PLAS 16.5 Normal [facility] Comment on above: Performed By: #### L [id number] ####[facility] (BEAKER)[address] [place] [address] CBCon 09-25-2024 Erythrocyte distribution width (RBC) [Ratio] 14.9 % Normal 11.5-15.0 [facility] Comment on above: Performed By: #### L [id number] #### [facility] ([facility]) [address] [place] [address] ERYTHROCYTE MEAN CORPUSCULAR HEMOGLOBIN CONCENTRATION (G/DL) BY AUTOMATED 31.1 g/dL Low 32.0-35.0 [facility] Comment on above: Performed By: #### L [id number] #### [facility] ([facility]) [address] [place] [address] Hematocrit (Bld) [Volume fraction] 45.4 % Normal 39.0-55.0 [facility] Comment on above: Performed By: #### L [id number] #### [facility] ([facility]) [address] [place] [address] Hemoglobin (Bld) [Mass/Vol] 14.1 g/dL Normal 13.0-17.0 [facility] Comment on above: Performed By: #### L [id number] #### [facility] ([facility]) [address] [place] [address] MCH (RBC) [Entitic mass] 26.3 pg Low 27.0-33.0 [facility] Comment on above: Performed By: #### L [id number] #### [facility] ([facility]) [address] [place] [address] MCV (RBC) [Entitic vol] 84.5 fL Normal 82.0-98.0 [facility] Comment on above: Performed By: #### L [id number] #### [facility] ([facility]) [address] [place] [address] PLATELETS (10*3/UL) IN BLOOD AUTOMATED COUNT 205 10*3/uL Normal 150-400 [facility] Comment on above: Performed By: #### L [id number] #### [facility] ([facility]) [address] [place] [address] RBC (Bld) [#/Vol] 5.37 10*6/uL Normal 4.20-5.70 [facility] Comment on above: Performed By: #### L [id number] #### [facility] ([facility]) [address] [place] [address] WBC (Bld) [#/Vol] 14.37 10*3/uL High 4.00-10.60 [facility] Comment on above: Performed By: #### L [id number] #### [facility] ([facility]) [address] [place] [address] MAGNESIUMon 09-25-2024 Magnesium [Mass/Vol] 2.1 mg/dL Normal 1.9-2.7 [facility] Comment on above: Performed By: #### L [id number] ####[facility] ([facility])[address] [place] [address] NURSNOTEon 09-25-2024 NURSNOTE Trauma RN met adrian dunham at bedside and provided the Trauma Services Patient Brochure. Patient will follow-up with Orthopedics 10/05/2024 at 0900. No further needs currently. Normal [facility] PHOSPHORUSon 09-25-2024 Magnesium [Mass/Vol] 2.8 mg/dL Normal 2.5-5.0 [facility] Comment on above: Performed By: #### L [id number] ####[facility] ([facility])[address] [place] [address] 30on 09-24-2024 30 The patient is Moderately [...] Free from fall injury Outcome: Progressing Normal [facility] BASIC METABOLIC PANELon 09-13 Anion gap [Moles/Vol] 8 mmol/L Normal 7-20 [facility] Comment on above: Performed By: #### L [id number] ####[facility] ([facility])[address] [place] [address] Calcium [Mass/Vol] 9.1 mg/dL Normal 8.6-10.3 [facility] Comment on above: Performed By: #### L [id number] ####[facility] ([facility])[address] [place] [address] Chloride [Moles/Vol] 98 mmol/L Normal 98-107 [facility] Comment on above: Performed By: #### L [id number] ####[facility] ([facility])[address] [place] [address] CO2 [Moles/Vol] 35 mmol/L High 21-31 [facility] Comment on above: Performed By: #### L [id number] ####[facility] ([facility])[address] [place] [address] Creatinine [Mass/Vol] 1.02 mg/dL Normal 0.70-1.30 [facility] Comment on above: Performed By: #### L [id number] ####[facility] ([facility])[address] [place] [address] GLOMERULAR FILTRATION RATE ML/MIN/1.73 SQ M.PREDICTED 87.3 mL/min/1.73m*2 Normal >60.0 [facility] Comment on above: Result Comment: [facility]???s estimated glomerular filtration rate (eGFR) will [...] individuals. Performed By: #### L [id number] ####[facility] ([facility])[address] [place] [address] Glucose [Mass/Vol] 103 mg/dL High 70-100 [facility] Comment on above: Performed By: #### L [id number] ####[facility] (BEAKER)[address] [place] [address] Potassium [Moles/Vol] 4.2 mmol/L Normal 3.5-5.1 [facility] Comment on above: Performed By: #### L [id number] ####[facility] (BEAKER)[address] [place] [address] Sodium [Moles/Vol] 137 mmol/L Normal 136-145 [facility] Comment on above: Performed By: #### L [id number] ####[facility] ([facility] [place] [address] Urea nitrogen [Mass/Vol] 11 mg/dL Normal 7-25 [facility] Comment on above: Performed By: #### L [id number] ####[facility] ([facility])[address] [place] [address] UREA NITROGEN/CREATININE (MASS RATIO) IN SER/PLAS 10.8 Normal [facility] Comment on above: Performed By: #### L [id number] ####[facility] ([facility] [place] [address] CBCon 09-24-2024 Erythrocyte distribution width (RBC) [Ratio] 15.5 % High 11.5-15.0 [facility] Comment on above: Performed By: #### L [id number] #### [facility] ([facility] [address] [place] [address] ERYTHROCYTE MEAN CORPUSCULAR HEMOGLOBIN CONCENTRATION (G/DL) BY AUTOMATED 30.4 g/dL Low 32.0-35.0 [facility] Comment on above: Performed By: #### L [id number] #### [facility] ([facility] [address] [place] [address] Hematocrit (Bld) [Volume fraction] 46.4 % Normal 39.0-55.0 [facility] Comment on above: Performed By: #### L [id number] #### [facility] (BEAKER) [address] [place] [address] Hemoglobin (Bld) [Mass/Vol] 14.1 g/dL Normal 13.0-17.0 [facility] Comment on above: Performed By: #### L [id number] #### [facility] ([facility]) [address] [place] [address] MCH (RBC) [Entitic mass] 26.4 pg Low 27.0-33.0 [facility] Comment on above: Performed By: #### L [id number] #### [facility] ([facility]) [address] [place] [address] MCV (RBC) [Entitic vol] 86.7 fL Normal 82.0-98.0 [facility] Comment on above: Performed By: #### L [id number] #### [facility] ([facility]) [address] [place] [address] PLATELETS (10*3/UL) IN BLOOD AUTOMATED COUNT 175 10*3/uL Normal 150-400 [facility] Comment on above: Performed By: #### L [id number] #### [facility] ([facility]) [address] [place] [address] RBC (Bld) [#/Vol] 5.35 10*6/uL Normal 4.20-5.70 [facility] Comment on above: Performed By: #### L [id number] #### [facility] ([facility]) [address] [place] [address] WBC (Bld) [#/Vol] 7.56 10*3/uL Normal 4.00-10.60 [facility] Comment on above: Performed By: #### L [id number] #### [facility] ([facility]) [address] [place] [address] CONSULTon 09-24-2024 CONSULT Physical Medicine an d Rehabilitation Consult Note Patient not staffed by PM&R today due to surgery today for IMN placement. Our team will staff tomorrow, 09/25/23. Silvia Zaldivar MD Normal [facility] MAGNESIUMon 09-24-2024 Magnesium [Mass/Vol] 2.2 mg/dL Normal 1.9-2.7 [facility] Comment on above: Performed By: #### L [id number] #### [facility] [address] OPNOTEon 09-24-2024 OPNOTE -- Attestation signed by [...] Operative Note Date: 09/23/2024 - 09/24/2024 Location: [facility] OR Name: Matty Dunham Garces, : 1970, Diagnosis Pre-op Diagnosis * Closed fracture of right tibia and fibula, initial encounter [S82.201A, S82.401A] * Fall at home, initial encounter [W19.XXXA, Y92.009] Post-op Diagnosis * Closed fracture of right tibia and fibula, initial encounter [S82.201A, S82.401A] * Fall at home, initial encounter [W19.XXXA, Y92.009] Procedures Treatment of right tibial shaft fracture by intramedullary implant with interlocking screws [CPT: 22811] Stress exam of right ankle under anesthesia [CPT: 20195] Intraoperative use of fluoroscopy less than 1 hour by physician [CPT: 18624] Surgeons Primary: Sandrine Hahn MD Resident - [...] mm x 34 mm interlocking screw Staff: Propeller Tester: Emi Francis RN Special Warfare Operator: CHARLINE Montejo Scrub Person: Araseli Butler CST Indications: Matty Garces is an 53 y.o. male who presented as a transfer from [facility] on 09/23/2024. Patient was transferred due to findings of a right distal third tibial shaft fracture after a fall in the shower. The fracture was closed and was subsequently reduced and splinted at [place] in a long-leg splint. Patient made stable [...] soft t (more content not included)... Normal [facility] PHOSPHORUSon 09-24-2024 Magnesium [Mass/Vol] 4.0 mg/dL Normal 2.5-5.0 [facility] Comment on above: Performed By: #### L [id number] #### [facility] ([place]) [address] [place] [address] POCT GLUCOSE METER UNSOLICIT ED RESULTSon 09-24-2024 Glucose [Mass/Vol] 100 mg/dL Normal 70-105 [facility] Comment on above: Order Comment: Waive d Testing in the ED is performed under the ED CLIA certificate #[id number]. Result Comment: asor ia3 Performed By: #### L [id number] #### [facility] (BEAKER) [address] [place] [address] APTTon 09-23-2024 ACTIVATED PARTIAL THROMBOPLASTIN TIME IN PPP BY COAGULATION ASSAY 31.2 Seconds Normal 25.0-35.0 [facility] Comment on above: Result Comment: Clin ical significance of the APTT is questionable in the presence of heparin. Performed By: #### L [id number] ####[facility] (BEAKER)[address] [place] [address] CBC WITH AUTO DIFFERENTIALon 09-23-2024 Basophils (Bld) [#/Vol] 0.05 10*3/uL Normal 0.00-0.20 [facility] Comment on above: Performed By: #### L [id number] ####[facility] ([facility])[address] [place] [address] Basophils/100 WBC (Bld) 0.5 % Normal 0.0-1.0 [facility] Comment on above: Performed By: #### L [id number] ####[facility] ([facility])[address] [place] [address] Eosinophils (Bld) [#/Vol] 0.11 10*3/uL Normal 0.00-0.50 [facility] Comment on above: Performed By: #### L [id number] ####[facility] ([facility])[address] [place] [address] Eosinophils/100 WBC (Bld) 1.0 % Normal 0.0-6.0 [facility] Comment on above: Performed By: #### L [id number] ####[facility] ([facility])[address] [place] [address] Erythrocyte distribution width (RBC) [Ratio] 15.9 % High 11.5-15.0 [facility] Comment on above: Performed By: #### L [id number] ####[facility] ([facility])[address] [place] [address] ERYTHROCYTE MEAN CORPUSCULAR HEMOGLOBIN CONCENTRATION (G/DL) BY AUTOMATED 30.3 g/dL Low 32.0-35.0 [facility] Comment on above: Performed By: #### L [id number] ####[facility] ([facility] [place] [address] Hematocrit (Bld) [Volume fraction] 47.8 % Normal 39.0-55.0 [facility] Comment on above: Performed By: #### L [id number] ####[facility] (BEAKER)[address] [place] [address] Hemoglobin (Bld) [Mass/Vol] 14.5 g/dL Normal 13.0-17.0 [facility] Comment on above: Performed By: #### L [id number] ####[facility] (BEAKER)[address] [place] [address] Immature granulocytes (Bld) [#/Vol] 0.10 10*3/uL Normal 0.00-0.20 [facility] Comment on above: Performed By: #### L [id number] ####[facility] (BEAKER)[address] [place] [address] Immature granulocytes/100 WBC (Bld) 0.9 % Normal 0.0-1.0 [facility] Comment on above: Performed By: #### L [id number] ####[facility] ([facility] [place] [address] Lymphocytes (Bld) [#/Vol] 0.74 10*3/uL Low 1.20-4.00 [facility] Comment on above: Performed By: #### L [id number] ####[facility] (BEAKER)[address] [place] [address] Lymphocytes/100 WBC (Bld) 7.0 % Low 20.0-45.0 [facility] Comment on above: Performed By: #### L [id number] ####[facility] (BEAKER)[address] [place] [address] MCH (RBC) [Entitic mass] 26.4 pg Low 27.0-33.0 [facility] Comment on above: Performed By: #### L [id number] ####[facility] (BEAKER)[address] [place] [address] MCV (RBC) [Entitic vol] 87.1 fL Normal 82.0-98.0 [facility] Comment on above: Performed By: #### L [id number] ####[facility] (BEAKER)[address] [place] [address] Monocytes (Bld) [#/Vol] 0.73 10*3/uL Normal 0.10-1.00 [facility] Comment on above: Performed By: #### L [id number] ####[facility] ([facility]ER)[address] [place] [address] Monocytes/100 WBC (Bld) 6.9 % Normal 5.0-12.0 [facility] Comment on above: Performed By: #### L [id number] ####[facility] ([facility]ER)[address] [place] [address] Neutrophils (Bld) [#/Vol] 8.83 10*3/uL High 1.60-7.60 [facility] Comment on above: Performed By: #### L [id number] ####[facility] (BEAKER)[address] [place] [address] Neutrophils/100 WBC (Bld) 83.7 % High 40.0-72.0 [facility] Comment on above: Performed By: #### L [id number] ####[facility] (BEAKER)[address] [place] [address] NRBC (PER 100 WBCS) BY AUTOMATED COUNT 0.0 % Normal 0 [facility] Comment on above: Performed By: #### L [id number] ####[facility] (BEAKER)[address] [place] [address] PLATELETS (10*3/UL) IN BLOOD AUTOMATED COUNT 188 10*3/uL Normal 150-400 [facility] Comment on above: Performed By: #### L [id number] ####[facility] (BEAKER)[address] [place] [address] RBC (Bld) [#/Vol] 5.49 10*6/uL Normal 4.20-5.70 [facility] Comment on above: Performed By: #### L [id number] ####[facility] (BEAKER)[address] [place] [address] WBC (Bld) [#/Vol] 10.56 10*3/uL Normal 4.00-10.60 [facility] Comment on above: Performed By: #### L [id number] ####[facility] ([facility] [place] [address] COMPREHENSIVE METABOLIC PANE Clif 09-23-2024 Albumin [Mass/Vol] 3.9 g/dL Normal 3.5-5.7 [facility] Comment on above: Performed By: #### L [id number] ####[facility] ([facility])[address] [place] [address] ALP [Catalytic activity/Vol] 98 U/L Normal 34-104 [facility] Comment on above: Performed By: #### L [id number] ####[facility] ([facility] [place] [address] ALT [Catalytic activity/Vol] 34 U/L Normal 7-52 [facility] Comment on above: Performed By: #### L [id number] ####[facility] ([facility])[address] [place] [address] Anion gap [Moles/Vol] 11 mmol/L Normal 7-20 [facility] Comment on above: Performed By: #### L [id number] ####[facility] ([facility] [place] [address] AST [Catalytic activity/Vol] 63 U/L High 13-39 [facility] Comment on above: Performed By: #### L [id number] ####[facility] ([facility])[address] [place] [address] Bilirubin [Mass/Vol] 0.7 mg/dL Normal 0.3-1.0 [facility] Comment on above: Performed By: #### L [id number] ####[facility] ([facility])[address] [place] [address] Calcium [Mass/Vol] 8.9 mg/dL Normal 8.6-10.3 [facility] Comment on above: Performed By: #### L [id number] ####[facility] ([facility])[address] [place] [address] Chloride [Moles/Vol] 101 mmol/L Normal 98-107 [facility] Comment on above: Performed By: #### L [id number] ####[facility] ([facility])[address] [place] [address] CO2 [Moles/Vol] 27 mmol/L Normal 21-31 [facility] Comment on above: Performed By: #### L [id number] ####[facility] ([facility])[address] [place] [address] Creatinine [Mass/Vol] 0.96 mg/dL Normal 0.70-1.30 [facility] Comment on above: Performed By: #### L [id number] ####[facility] ([facility])[address] [place] [address] GLOMERULAR FILTRATION RATE ML/MIN/1.73 SQ M.PREDICTED 93.9 mL/min/1.73m*2 Normal >60.0 [facility] Comment on above: Result Comment: [facility]???s estimated glomerular filtration rate (eGFR) will [...] individuals. Performed By: #### L [id number] ####[facility] ([facility])[address] [place] [address] Glucose [Mass/Vol] 93 mg/dL Normal 70-100 [facility] Comment on above: Performed By: #### L [id number] ####[facility] ([facility])[address] [place] [address] Potassium [Moles/Vol] 4.3 mmol/L Normal 3.5-5.1 [facility] Comment on above: Performed By: #### L [id number] ####[facility] (BEAKER)[address] [place] [address] Protein [Mass/Vol] 7.2 g/dL Normal 6.0-8.3 [facility] Comment on above: Performed By: #### L [id number] ####[facility] (BEAKER)[address] [place] [address] Sodium [Moles/Vol] 135 mmol/L Low 136-145 [facility] Comment on above: Performed By: #### L [id number] ####[facility] ([facility]AKER)[address] [place] [address] Urea nitrogen [Mass/Vol] 8 mg/dL Normal 7-25 [facility] Comment on above: Performed By: #### L [id number] ####[facility] (BE[facility]ER)[address] [place] [address] UREA NITROGEN/CREATININE (MASS RATIO) IN SER/PLAS 8.3 Normal [facility] Comment on above: Performed By: #### L [id number] ####[facility] ([facility]ER)[address] [place] [address] CONSULTon 09-23-2024 CONSULT -- Attestation signed by [...] found for the past 24 hours Assessment/Plan Mtaty Garces is a 53 y.o. male with [...] Alvarez MD Orthopaedic Surgery, Resident Ortho Pager [phone] 09/23/24 6:55 PM May contact the on-call resident with any concerns via the Orthopaedic pager at any time. Normal [facility] CT ABDOMEN PELVIS W IV CONTR [...] advised. * Electronically signed: Fahad Frazier. Normal [facility] CT CERVICAL SPINE WO IV CONT [...] nor listhesis. Electronically signed: Fahad Frazier. Normal [facility] CT CHEST W IV CONTRASTon CT [...] is recommended. Electronically signed: Fahad Frazier. Normal [facility] CT HEAD WO IV CONTRASTon CT [...] brain * Electronically signed: Fahad Frazier. Normal [facility] CT TIBIA FIBULA RIGHT WO IV [...] the knee Electronically signed: Fahad Frazier. Normal [facility] EDNURSon 09-23-2024 EDNURS Mode of arrival (squ ad #, walk in, police, etc): [facility] Chief complaint(s): Right leg fracture Arrival Note (brief scenario, treatment BANKRUPTCY PARALEGAL, etc): Patient arrives via [facility] from [facility] to be seen by orthopedics for Right tib-fib fracture. Patient arrives with Rt leg splinted Normal [facility] EDPROVon 09-23-2024 EDPROV History of Present Illness Chief Complaint Patient presents with Leg Injury Initial evaluation completed by Dr. Lang. Matty Garces is a 53 y/o male presenting to the ED with c/o leg injury. Pt was transferred from [facility] for right distal tibfib fracture. Pt states [...] what they are. History provided by: Patient [place] Coma Scale Score: 15 History Past Medical [...] Procedure Abnormality Status --------- ------ CBC auto differential[[id number]] Abnormal Final result Please view results for these tests on the individual orders. TYPE AND SCREEN ABO G (more content not included)... Normal [facility] ETHANOLon 09-23-2024 ETHANOL (MG/DL) IN SER/PLAS <10 Normal <10 [facility] Comment on above: Performed By: #### L [id number] #### [facility] ([facility]) [address] [place] [address] ETHANOL CALCULATED (%) <0.01 Normal [facility] Comment on above: Performed By: #### L [id number] #### [facility] (BEAKER) [address] [place] [address] HPon 09-23-2024 [facility] Trauma Surgery Chief Complaint: Trauma Fall Mechanism of Injury: 53 y.o. year old male who was brought in via EMS. He had no C-collar or back board in place. Circumstances of injury: Patient states that he was recently admitted to [facility] for cellulitis to the [facility], he was discharged yesterday and this morning was home, he got out of bed to take a shower and had a micro seizure and heard his right ankle snap. Denies hitting head or LOC but admits that he doesn't remember the whole event. He went back to [facility] ED where a right tib/fib fracture was found and patient was transferred to [facility] Of note patient is on anticoagulant/antiplat elets. Baby aspirin, however he was receiving Shots to prevent blood clots while inpatient at [facility] Review of Systems: General: No For Chills, [...] lb)] 136 kg (300 lb) (09/23 1048) [place] Coma Scale Score: 15 No intake or [...] Neck: Cervica (more content not included)... Normal [facility] LACTIC ACID, PLASMAon 2024 LACTATE (MMOL/L) IN SER/PLAS 0.6 mmol/L Normal 0.5-2.2 [facility] Comment on above: Performed By: #### L [id number] #### [facility] ([place]) [address] [place] [address] MAGNESIUMon 09-23-2024 Magnesium [Mass/Vol] 1.8 mg/dL Low 1.9-2.7 [facility] Comment on above: Performed By: #### L [id number] ####[facility] (BEAKER)[address] [place] [address] PHOSPHORUSon 09-23-2024 Magnesium [Mass/Vol] 3.5 mg/dL Normal 2.5-5.0 [facility] Comment on above: Performed By: #### L [id number] #### [facility] ([facility]ER) [address] [place] [address] PROTIME-INRon 09-23-2024 INR IN PPP BY COAGULATION ASSAY 1.28 High 0.90-1.10 [facility] Comment on above: Result Comment: ACCC [...] Performed By: #### L [id number] #### [facility] ([facility]AKER) [address] [place] [address] PROTHROMBIN TIME (PT) IN PPP BY COAGULATION ASSAY 15.9 Seconds High 12.3-14.8 [facility] Comment on above: Performed By: #### L [id number] #### [facility] ([facility]) [address] [place] [address] TOXICOLOGY PANEL URINEon AMPHETAMINE+METHAMPH ETAMINE SCREEN (PRESENCE) IN URINE Negative Normal Negative [facility] Comment on above: Performed By: #### L [id number] #### [facility] ([facility]) [address] [place] [address] BARBITURATES PRESENCE IN URINE BY SCREEN METHOD Negative Normal Negative [facility] Comment on above: Performed By: #### L [id number] #### [facility] ([facility]) [address] [place] [address] Benzodiazepines Ql (U) Negative Normal Negative [facility] Comment on above: Performed By: #### L [id number] #### [facility] ([facility]) [address] [place] [address] CANNABINOID (PRESENCE) IN URINE BY SCREEN METHOD Negative Normal Negative [facility] Comment on above: Performed By: #### L [id number] #### [facility] ([facility]) [address] [place] [address] Cocaine Ql (U) Negative Normal Negative [facility] Comment on above: Performed By: #### L [id number] #### [facility] ([facility]) [address] [place] [address] METHADONE (PRESENCE) IN URINE BY SCREEN METHOD Negative Normal Negative [facility] Comment on above: Performed By: #### L [id number] #### [facility] ([facility]) [address] [place] [address] OPIATES (PRESENCE) IN URINE BY SCREEN METHOD Positive Abnormal Negative [facility] Comment on above: Performed By: #### L [id number] #### [facility] ([facility]) [address] [place] [address] PHENCYCLIDINE PRESENCE IN URINE BY SCREEN METHOD Negative Normal Negative [facility] Comment on above: Performed By: #### L [id number] #### [facility] ([facility]) [address] [place] [address] Propoxyphene Screen Ql (U) Negative Normal Negative [facility] Comment on above: Performed By: #### L [id number] #### [facility] ([facility]) [address] [place] [address] TRICYCLIC ANTIDEPRESSANTS (PRESENCE) IN URINE Negative Normal Negative [facility] Comment on above: Performed By: #### L [id number] #### [facility] ([facility]) [address] [place] [address] TROPONIN Ion 09-23-2024 Troponin I.cardiac [Mass/Vol] 0.01 ng/mL Normal 0.00-0.04 [facility] Comment on above: Performed By: #### L [id number] #### [facility] ([facility]) [address] [place] [address] TYPE AND SCREENon 09-23-2024 AB SCREEN Negative Normal [facility] Comment on above: Performed By: #### L [id number] #### [facility] ([facility]) [address] [place] [address] ABO group Nom (Bld) A Normal [facility] Comment on above: Performed By: #### L [id number] #### [facility] ([facility]) [address] [place] [address] RH TYPE IN BLOOD Positive Normal [facility] Comment on above: Performed By: #### L [id number] #### [facility] ([facility]) [address] [place] [address] URINALYSISon 09-23-2024 BILIRUBIN, TOTAL PRESENCE IN URINE Negative Normal Negative [facility] Comment on above: Order Comment: Micro scopics not performed on urines with negative chemical reactions unless requested on original order. Performed By: #### L [id number] ####[facility] ([facility])[address] [place] [address] Clarity (U) Clear Normal Clear [facility] Comment on above: Order Comment: Micro scopics not performed on urines with negative chemical reactions unless requested on original order. Performed By: #### L [id number] ####[facility] ([facility])[address] [place] [address] Color (U) Yellow Normal Colorless, Yellow, Light-Yellow [facility] Comment on above: Order Comment: Micro scopics not performed on urines with negative chemical reactions unless requested on original order. Performed By: #### L [id number] ####[facility] ([facility])[address] [place] [address] GLUCOSE (MG/DL) IN URINE Normal Normal Normal [facility] Comment on above: Order Comment: Micro scopics not performed on urines with negative chemical reactions unless requested on original order. Performed By: #### L [id number] ####[facility] ([facility])[address] [place] [address] HEMOGLOBIN PRESENCE IN URINE Negative Normal Negative [facility] Comment on above: Order Comment: Micro scopics not performed on urines with negative chemical reactions unless requested on original order. Performed By: #### L [id number] ####[facility] ([facility])[address] [place] [address] Ketones Ql (U) Negative Normal Negative [facility] Comment on above: Order Comment: Micro scopics not performed on urines with negative chemical reactions unless requested on original order. Performed By: #### L [id number] ####[facility] ([facility])[address] [place] [address] LEUKOCYTE ESTERASE PRESENCE IN URINE BY TEST STRIP Negative Normal Negative [facility] Comment on above: Order Comment: Micro scopics not performed on urines with negative chemical reactions unless requested on original order. Performed By: #### L [id number] ####[facility] ([facility])[address] [place] [address] NITRITE PRESENCE IN URINE Negative Normal Negative [facility] Comment on above: Order Comment: Micro scopics not performed on urines with negative chemical reactions unless requested on original order. Performed By: #### L [id number] ####[facility] ([facility])[address] [place] [address] pH (U) 6.0 [pH] Normal 5.0-8.0 [facility] Comment on above: Order Comment: Micro scopics not performed on urines with negative chemical reactions unless requested on original order. Performed By: #### L [id number] ####[facility] ([facility] [place] [address] Protein (U) [Mass/Vol] Negative Normal Negative [facility] Comment on above: Order Comment: Micro scopics not performed on urines with negative chemical reactions unless requested on original order. Performed By: #### L [id number] ####[facility] ([facility])[address] [place] [address] Specific gravity (U) [Rel density] 1.050 High 1.010-1.030 [facility] Comment on above: Order Comment: Micro scopics not performed on urines with negative chemical reactions unless requested on original order. Performed By: #### L [id number] ####[facility] ([facility])[address] [place] [address] UROBILINOGEN (MG/DL) IN URINE Normal Normal Normal [facility] Comment on above: Order Comment: Micro scopics not performed on urines with negative chemical reactions unless requested on original order. Performed By: #### L [id number] ####[facility] ([facility])[address] [place] [address] VITAMIN D 25 HYDROXYon 09-23 CALCIDIOL (25 [place] VITAMIN D3) (NG/ML) IN SER/PLAS 42.6 ng/mL Normal 30.0-80.0 [facility] Comment on above: Result Comment: >80. 0 Toxicity possible Performed By: #### L [id number] #### [facility] ([facility]) [address] [place] [address] Superficial Wound Cultureon 09-21-2024 Superficial Wound Culture [...] RESISTANT TO ALL B-LACTAM DRUGS. PERFORMED BY: [facility] [address] [place] [address] PATHOLOGIST STUDIO ARTIST STEVE ANGEL M.D. Normal [facility] Comment on above: Performed By: #### C USUP #### [address] CSPINE WO CONon CT CSPINE WO [...] by: ANGEL JORDAN Date: 2022-12-06 06:37 Normal [facility] CT FACIAL BONES WO CONon CT [...] ANGEL SAID Date: 2022-12-06 06:41 Normal [facility] CT HEAD WO CONon 12-06-2022 CT [...] ANGEL JORDAN Date: 2022-12-06 06:39 Normal [facility] XR ELBOW RT MIN 3 VIEWSon XR ELBOW RT MIN 3 VIEWS Exam: Radiographs: XR ELBOW RT MIN 3 VIEWS Reason for exam: Elbow pain Comparison: None IMPRESSION: Right elbow degenerative changes. Olecranon spur. Remainder of the right elbow is unremarkable. Electronically authenticated by: MICHAEL CASANOVA Date: 2022-12-06 07:22 Normal [facility] XR FOREARM RT 2Von 3 XR FOREARM RT 2V Exam: Radiographs: X R FOREARM RT 2V Reason for exam: Forearm pain Comparison: None IMPRESSION: Mild degenerative changes in the right elbow and wrist. Right forearm is otherwise unremarkable. Electronically authenticated by: MICHAEL CASANOVA Date: 2022-12-06 08:07 Normal [facility] PSA, FREE AND TOTAL RATIOon 12-03-2022 % Free PSA 9.0 % Normal [facility] Comment on above: Result Comment: The [...] men. Performed By: #### P SAFREE #### [facility] [address] [address] [address] Shabnam Rae Prostate specific Ag [Mass/Vol] 5.9 ng/mL Critically high 0.0-4.0 [facility] Comment on above: [...] disease. Performed By: #### P SAFREE #### [facility] [address] [address] [address] Shabnam Rae PSA, Free 0.53 ng/mL Normal N/A [facility] Comment on above: Result Comment: Tanja ayala ECLIA methodology. Performed By: #### P SAFREE #### [facility] [address] [place] [address] Dr. Shabnam Rae INSULINon 12-02-2022 Insulin 20.2 uIU/mL Normal 2.6-24.9 [facility] Comment on above: Performed By: #### P SASC #### [facility] [address] [place] [address] Dr. Shabnam Rae TESTOSTERONE, TOTALon 2022 Testosterone [Mass/Vol] 256 ng/dL Critically low 264-916 [facility] Comment on above: Result Comment: Adul t male reference interval is based on a population of healthy nonobese males (BMI <30) between 19 and 39 years old. adia Ch.al. JCEM 2017,102;4192-0017. PMID: [id number]. Performed By: #### P SASC #### [facility] [address] [address] [address] Shabnam Rae CBC AUTO DIFFon 12-01-2022 BASO # 0.1 103/ul Normal 0.0-0.1 [facility] Comment on above: Performed By: #### P SASC #### [facility] [address] [address] [address] Shabnam Rae Basophils/100 WBC (Bld) 1.0 % Normal 0.2-2.0 [facility] Comment on above: Performed By: #### P SASC #### [facility] [address] [address] [address] Shabnam Rae EO # 0.1 103/ul Normal 0.0-0.7 [facility] Comment on above: Performed By: #### P SASC #### [facility] [address] [address] [address] Shabnam Rae Eosinophils/100 WBC (Bld) 1.8 % Normal 0.9-7.0 [facility] Comment on above: Performed By: #### P SASC #### [facility] [address] [address] [address] Shabnam Rae Erythrocyte distribution width (RBC) [Ratio] 14.8 % Normal 11.0-15.0 [facility] Comment on above: Performed By: #### P SASC #### [facility] [address] [address] [address] Shabnam Rae Hematocrit (Bld) [Volume fraction] 49.9 % Normal 42.0-54.0 [facility] Comment on above: Performed By: #### P SASC #### [facility] [address] [address] [address] Shabnam Rae Hemoglobin (Bld) [Mass/Vol] 16.0 g/dL Normal 14.0-18.0 [facility] Comment on above: Performed By: #### P SASC #### [facility] [address] [address] [address] Shabnam Rae IG # 0.04 10e3/ul Critically high 0.00-0.03 [facility] Comment on above: Performed By: #### P SASC #### [facility] [address] [address] [address] Shabnam Rae IG % 0.6 % Critically high 0.0-0.5 [facility] Comment on above: Performed By: #### P SASC #### [facility] [address] [address] [address] Shabnam Rae LYMPH # 1.0 103/ul Critically low 1.2-3.8 [facility] Comment on above: Performed By: #### P SASC #### [facility] [address] [address] [address] Shabnam Rae Lymphocytes/100 WBC (Bld) 16.2 % Critically low 20.5-60.0 [facility] Comment on above: Performed By: #### P SASC #### [facility] [address] [address] [address] Shabnam Rae MANUAL DIFF REQ NO Normal [facility] Comment on above: Performed By: #### P SASC #### [facility] [address] [address] [address] Shabnam Rae MCH (RBC) [Entitic mass] 27.7 pg Normal 25.9-34.0 [facility] Comment on above: Performed By: #### P SASC #### [facility] [address] [address] [address] Shabnam Rae MCHC (RBC) [Mass/Vol] 32.1 g/dL Normal 29.9-35.2 [facility] Comment on above: Performed By: #### P SASC #### [facility] [address] [address] [address] Shabnam Rae MCV (RBC) [Entitic vol] 86.3 fL Normal 80.0-94.0 [facility] Comment on above: Performed By: #### P SASC #### [facility] [address] [address] [address] Shabnam Rae MONO # 0.5 103/ul Normal 0.3-0.8 [facility] Comment on above: Performed By: #### P SASC #### [facility] [address] [address] [address] Shabnam Rae Monocytes/100 WBC (Bld) 7.6 % Normal 1.7-12.0 [facility] Comment on above: Performed By: #### P SASC #### [facility] [address] [address] [address] Shabnam Rae NEUT # 4.6 103/ul Normal 1.4-6.5 [facility] Comment on above: Performed By: #### P SASC #### [facility] [address] [address] [address] Shabnam Rae Neutrophils/100 WBC (Bld) 72.8 % Normal 43.0-75.0 [facility] Comment on above: Performed By: #### P SASC #### [facility] [address] [place] [address] Dr. Shabnam Rae Platelet mean volume (Bld) [Entitic vol] 9.8 fL Normal 9.5-13.5 [facility] Comment on above: Performed By: #### P SASC #### [facility] [address] [place] [address] Dr. Shabnam Rae PLT 203 103/ul Normal 150-450 [facility] Comment on above: Performed By: #### P SASC #### [facility] [address] [address] [address] Shabnam Rae RBC 5.78 106/ul Normal 4.70-6.10 [facility] Comment on above: Performed By: #### P SASC #### [facility] [address] [address] [address] Shabnam Rae WBC 6.3 103/ul Normal 4.0-11.0 [facility] Comment on above: Performed By: #### P SASC #### [facility] [address] [place] [address] Dr. Shabnam Rae FREE THYROXINE INDEX T7on FTI 2.05 Normal 1.30-4.50 [facility] Comment on above: Performed By: #### T SH, CMP, LIPID, T7, URIC #### [facility] [address] [address] [address] Shabnam Rae T3U 33.0 % Normal 33.0-40.0 [facility] Comment on above: Performed By: #### T SH, CMP, LIPID, T7, URIC #### [facility] [address] [address] [address] Shabnam Rae T4 [Mass/Vol] 6.20 ug/dL Normal 4.50-12.10 [facility] Comment on above: Performed By: #### T SH, CMP, LIPID, T7, URIC #### [facility] [address] [address] [address] Shabnam Rae GLYCOHEMOGLOBIN A1Con 2022 ADA RECOMMENDATION SEE BELOW Normal [facility] Comment on above: Result Comment: ADA RECOMMENDED LIMIT 4.0 - 6.0 ADA THERAPEUTIC TARGET < 7.0 ACTION SUGGESTED > 7.0 Performed By: #### P SASC #### [facility] [address] [address] [address] Shabnam Rae Glucose [Mass/Vol] 114 mg/dL Normal [facility] Comment on above: Performed By: #### P SASC #### [facility] [address] [address] [address] Shabnam Rae HbA1c (Bld) [Mass fraction] 5.6 % Normal 4.5-6.2 [facility] Comment on above: Performed By: #### P SASC #### [facility] [address] [address] [address] Shabnam Rae LIPID PROFILEon 12-01-2022 CHOL-HDL RATIO NORM SEE BELOW Normal [facility] Comment on above: Result Comment: 3.3 - 4.4 LOW RISK 4.4 - 7.1 AVERAGE RISK 7.1 - 11.0 MODERATE RISK >11.0 HIGH RISK Performed By: #### T SH, CMP, LIPID, T7, URIC #### [facility] [address] [address] [address] Shabnam Rae Cholesterol [Mass/Vol] 176 mg/dL Normal <=200 [facility] Comment on above: Performed By: #### T SH, CMP, LIPID, T7, URIC #### [facility] [address] [address] [address] Shabnam Rae Cholesterol in HDL [Mass/Vol] 48 mg/dL Normal 40-60 [facility] Comment on above: Performed By: #### T SH, CMP, LIPID, T7, URIC #### [facility] [address] [address] [address] Shabnam Rae Cholesterol in LDL [Mass/Vol] 108.2 mg/dL Normal [facility] Comment on above: Performed By: #### T SH, CMP, LIPID, T7, URIC #### [facility] [address] [address] [address] Shabnam Rae Cholesterol.total/Ch olesterol in HDL [Mass ratio] 3.7 {ratio} Normal [facility] Comment on above: Performed By: #### T SH, CMP, LIPID, T7, URIC #### [facility] [address] [address] [address] Shabnam Rae HDL NORMAL > or = 60 mg/dl - LO W CARDIOVASCULAR RISK <40 mg/dl - HIGH CARDIOVASCULAR RISK Normal [facility] Comment on above: Performed By: #### T SH, CMP, LIPID, T7, URIC #### [facility] [address] [address] [address] Shabnam Rae LDL CALC NORMAL SEE BELOW Normal [facility] Comment on above: Result Comment: <100 mg/dl OPTIMAL 100 - 129 mg/dl NEAR OR ABOVE OPTIMAL 130 - 159 mg/dl BORDERLINE HIGH 160 - 189 mg/dl HIGH >190 mg/dl VERY HIGH Performed By: #### T SH, CMP, LIPID, T7, URIC #### [facility] [address] [address] [address] Shabnam Rae Triglyceride [Mass/Vol] 99 mg/dL Normal <=150 [facility] Comment on above: Performed By: #### T SH, CMP, LIPID, T7, URIC #### [facility] [address] [address] [address] Shabnam Rae VLDL CALC 19.8 mg/dL Normal [facility] Comment on above: Performed By: #### T SH, CMP, LIPID, T7, URIC #### [facility] [address] [address] [address] Shabnam Rae PROF 14(COMP METB)on 023 Albumin [Mass/Vol] 4.1 g/dL Normal 3.4-5.0 [facility] Comment on above: Performed By: #### T SH, CMP, LIPID, T7, URIC #### [facility] [address] [address] [address] Shabnam Rae Albumin/Globulin [Mass ratio] 1.1 {ratio} Normal [facility] Comment on above: Performed By: #### T SH, CMP, LIPID, T7, URIC #### [facility] [address] [place] [address] Dr. Shabnam Rae ALP [Catalytic activity/Vol] 101 U/L Normal 46-116 [facility] Comment on above: Performed By: #### T SH, CMP, LIPID, T7, URIC #### [facility] [address] [place] [address] Dr. Shabnam Rae ALT [Catalytic activity/Vol] 26 U/L Normal 16-63 [facility] Comment on above: Performed By: #### T SH, CMP, LIPID, T7, URIC #### [facility] [address] [place] [address] Dr. Shabnam Rae Anion gap [Moles/Vol] 10.1 mmol/L Normal [facility] Comment on above: Performed By: #### T SH, CMP, LIPID, T7, URIC #### [facility] [address] [address] [address] Shabnam Rae AST [Catalytic activity/Vol] 19 U/L Normal 15-37 [facility] Comment on above: Performed By: #### T SH, CMP, LIPID, T7, URIC #### [facility] [address] [place] [address] Dr. Shabnam Rae Bilirubin [Mass/Vol] 0.8 mg/dL Normal 0.2-1.0 [facility] Comment on above: Performed By: #### T SH, CMP, LIPID, T7, URIC #### [facility] [address] [address] [address] Shabnam Rae Calcium [Mass/Vol] 9.5 mg/dL Normal 8.5-10.1 [facility] Comment on above: Performed By: #### T SH, CMP, LIPID, T7, URIC #### [facility] [address] [place] [address] Dr. Shabnam Rae Chloride [Moles/Vol] 102 mmol/L Normal 98-107 [facility] Comment on above: Performed By: #### T SH, CMP, LIPID, T7, URIC #### [facility] [address] [place] [address] Dr. Shabnam Rae CO2 [Moles/Vol] 32.4 mmol/L Critically high 21.0-32.0 [facility] Comment on above: Performed By: #### T SH, CMP, LIPID, T7, URIC #### [facility] [address] [place] [address] Dr. Shabnam Rae Creatinine [Mass/Vol] 1.00 mg/dL Normal 0.70-1.30 [facility] Comment on above: Performed By: #### T SH, CMP, LIPID, T7, URIC #### [facility] [address] [place] [address] Dr. Shabnam Rae EGFR-AF TURKMEN >60 Normal >=60 [facility] Comment on above: Performed By: #### T SH, CMP, LIPID, T7, URIC #### [facility] [address] [place] [address] Dr. Shabnam Rae EGFR-NON AF TURKMEN >60 Normal >=60 [facility] Comment on above: Performed By: #### T SH, CMP, LIPID, T7, URIC #### [facility] [address] [place] [address] Dr. Shabnam Rae Globulin (S) [Mass/Vol] 3.8 g/dL Normal [facility] Comment on above: Performed By: #### T SH, CMP, LIPID, T7, URIC #### [facility] [address] [address] [address] Shabnam Rae Glucose [Mass/Vol] 94 mg/dL Normal 74-106 [facility] Comment on above: Performed By: #### T SH, CMP, LIPID, T7, URIC #### [facility] [address] [address] [address] Shabnam Rae Potassium [Moles/Vol] 3.5 mmol/L Normal 3.5-5.1 [facility] Comment on above: Performed By: #### T SH, CMP, LIPID, T7, URIC #### [facility] [address] [place] [address] Dr. Shabnam Rae Protein [Mass/Vol] 7.9 g/dL Normal 6.4-8.2 [facility] Comment on above: Performed By: #### T SH, CMP, LIPID, T7, URIC #### [facility] [address] [place] [address] Dr. Shabnam Rae Sodium [Moles/Vol] 141 mmol/L Normal 136-145 [facility] Comment on above: Performed By: #### T SH, CMP, LIPID, T7, URIC #### [facility] [address] [place] [address] Dr. Shabnam Rae Urea nitrogen [Mass/Vol] 15.0 mg/dL Normal 7.0-18.0 [facility] Comment on above: Performed By: #### T SH, CMP, LIPID, T7, URIC #### [facility] [address] [place] [address] Dr. Shabnam Rae Urea nitrogen/Creatinine [Mass ratio] 15.0 mg/mg Normal [facility] Comment on above: Performed By: #### T SH, CMP, LIPID, T7, URIC #### [facility] [address] [place] [address] Dr. Shabnam Rae TSHon 12-01-2022 TSH 1.504 uIU/mL Normal 0.358-3.740 [facility] Comment on above: Performed By: #### T SH, CMP, LIPID, T7, URIC #### [facility] [address] [address] [address] Shabnam Rae URIC ACID SERUMon 12-01-2022 Urate [Mass/Vol] 6.9 mg/dL Normal 3.5-7.2 [facility] Comment on above: Performed By: #### T SH, CMP, LIPID, T7, URIC #### [facility] [address] [place] [address] Dr. Shabnam Rae TESTOSTERONE, TOTALon 2021 Testosterone [Mass/Vol] 244 ng/dL Critically low 264-916 [facility] Comment on above: Result Comment: Adul t male reference interval is based on a population of healthy nonobese males (BMI <30) between 19 and 39 years old. Dima, et.al. JCEM 2017,102;5333-2534. PMID: 72789774. Performed By: #### P SAFREE #### [facility] [address] [place] [address] Dr. Shabnam Rae TESTOSTERONE, FREE,DIRECT, T OTALon 03-16-2022 Free Testosterone(Direct) 2.1 pg/mL Critically low 7.2-24.0 [facility] Comment on above: Result Comment: Perf ormed at: BN Performed By: #### C VDTBH #### [facility] [address] [place] [address] Dr. Shabnam Rae Testosterone [Mass/Vol] 252 ng/dL Critically low 264-916 [facility] Comment on above: Result Comment: Adul t male reference interval is based on a population of healthy nonobese males (BMI <30) between 19 and 39 years old. Travison, et.al. JCEM 2017,102;7844-3108. PMID: [id number]. Performed at: CB Performed By: #### C VDTBH #### [facility] [address] [place] [address] Dr. Shabnam Rae Formson 02-26-2022 Forms [id number]#1. 00CD:127 Normal [facility] Screenson 02-26-2022 Screens [id number]#1. 00CD:127 Normal [facility] Screens [id number]#1.0 0CD:127 Normal [facility] Urology Office/Clinic Noteon 02-26-2022 Urology Office/Clinic Note [...] (more content not included)... Normal [facility] Comment on above: Result Comment: Elec tronically Signed By: Viola Grullon MD\.br\Date and Time Signed: 02/26/22 00:20 EDT\.br\Electronically Co-Signed By: Helen Leung\.br\Date and Time Co-Signed: 02/25/22 11:16 EDT Ambulatory Visit Summaryon 0 02-25-2022 Ambulatory Visit Summary MATTY GARCES Toni :1970 Visit Date:02/25/2022 Ambulatory Visit Instructions Your Diagnosis Hydrocele Varicocele BPH without urinary obstruction Tests Performed Urnls Dip Stick Auto w/o Microscopy POC 94032 Your Care Team Attending Physician - Viola Grullon MD Primary Care Physician - Venus Jaeger MD Procedures Performed Colonoscopy, Hemorrhoid, Hernia, Tonsillectomy. Discharge Vitals Heart Rate (Peripheral) 74 Respiratory Rate 16 Blood Pressure 157/107 Height 189.6 cm Height 189.6 cm Weight 119.9 kg Weight 119.9 kg BMI 33.35 What to do next You Need to Schedule the Following Appointments Follow Up with Viola Grullon MD, JOSHUAL, URO When: Where: Test Results Urnls Dip Stick Auto w/o Microscopy POC 74813 (02/25/2022) Bilirubin Urine Dipstick - Negative Blood Urine Dipstick - Negative Glucose Urine Dipstick - Negative Ketones Urine Dipstick - Negative Leukocytes Urine Dipstick - Negative Nitrite Urine Dipstick - Negative Protein Urine Dipstick - Negative Specific [place] Urine Dipstick - >=1.030 Urine Appearance Urine [...] the hydrocele for any changes. ? Take dndg-aar-kyclfzv and prescription medicines only as told by [...] (more content not included)... Normal [facility] Patient Educationon 02-26-20 Patient Education Urology Hydrocele, [...] the hydrocele for any changes. ? Take wqzn-qww-vhgrrnd and prescription medicines only as told by [...] 02/17/2011 Document Revised: 09/10/2018 Document Reviewed: 09/10/2018 [employer] Patient Education ? 2019 [employer] [facility] ED Note-Physicianon 02-04-20 ED Note-Physician [id number] .00CD:127 [facility] RAD - Ultrasound Reporton RAD - Ultrasound Report [id number]#1.0 0CD:127 [facility] RAD - CT Reporton 02-02-2022 RAD - CT Report [id number] .00CD:127 [facility] RAD - CT Report [id number] .00CD:127 [facility] CBC AUTO DIFFon 01-05-2022 BASO # 0.0 103/ul Normal 0.0-0.1 [facility] Comment on above: Performed By: #### P SAFREE #### [facility] [address] [place] [address] Dr. Shabnam Rae Basophils/100 WBC (Bld) 0.6 % Normal 0.2-2.0 [facility] Comment on above: Performed By: #### P SAFREE #### [facility] [address] [place] [address] Dr. Shabnam Rae EO # 0.1 103/ul Normal 0.0-0.7 [facility] Comment on above: Performed By: #### P SAFREE #### [facility] [address] [place] [address] Dr. Shabnam Rae Eosinophils/100 WBC (Bld) 2.1 % Normal 0.9-7.0 [facility] Comment on above: Performed By: #### P SAFREE #### [facility] [address] [place] [address] Dr. Shabnam Rae Erythrocyte distribution width (RBC) [Ratio] 13.1 % Normal 11.0-15.0 [facility] Comment on above: Performed By: #### P SAFREE #### [facility] [address] [place] [address] Dr. Shabnam Rae Hematocrit (Bld) [Volume fraction] 43.1 % Normal 42.0-54.0 [facility] Comment on above: Performed By: #### P SAFREE #### [facility] [address] [place] [address] Dr. Shabnam Rae Hemoglobin (Bld) [Mass/Vol] 13.7 g/dL Critically low 14.0-18.0 [facility] Comment on above: Performed By: #### P SAFREE #### [facility] [address] [place] [address] Dr. Shabnam Rae IG # 0.04 10e3/ul Critically high 0.00-0.03 [facility] Comment on above: Performed By: #### P SAFREE #### [facility] [address] [place] [address] Dr. Shabnam Rae IG % 0.6 % Critically high 0.0-0.5 [facility] Comment on above: Performed By: #### P SAFREE #### [facility] [address] [place] [address] Dr. Shabnam Rae LYMPH # 0.9 103/ul Critically low 1.2-3.8 [facility] Comment on above: Performed By: #### P SAFREE #### [facility] [address] [place] [address] Dr. Shabnam Rae Lymphocytes/100 WBC (Bld) 13.1 % Critically low 20.5-60.0 [facility] Comment on above: Performed By: #### P SAFREE #### [facility] [address] [place] [address] Dr. Shabnam Rae MANUAL DIFF REQ NO Normal [facility] Comment on above: Performed By: #### P SAFREE #### [facility] [address] [place] [address] Dr. Shabnam Rae MCH (RBC) [Entitic mass] 29.5 pg Normal 25.9-34.0 [facility] Comment on above: Performed By: #### P SAFREE #### [facility] [address] [place] [address] Dr. Shabnam Rae MCHC (RBC) [Mass/Vol] 31.8 g/dL Normal 29.9-35.2 [facility] Comment on above: Performed By: #### P SAFREE #### [facility] [address] [place] [address] Dr. Shabnam Rae MCV (RBC) [Entitic vol] 92.9 fL Normal 80.0-94.0 [facility] Comment on above: Performed By: #### P SAFREE #### [facility] [address] [place] [address] Dr. Shabnam Rae MONO # 0.4 103/ul Normal 0.3-0.8 [facility] Comment on above: Performed By: #### P SAFREE #### [facility] [address] [place] [address] Dr. Shabnam Rae Monocytes/100 WBC (Bld) 5.4 % Normal 1.7-12.0 [facility] Comment on above: Performed By: #### P SAFREE #### [facility] [address] [place] [address] Dr. Shabnam Rae NEUT # 5.2 103/ul Normal 1.4-6.5 [facility] Comment on above: Performed By: #### P SAFREE #### [facility] [address] [place] [address] Dr. Shabnam Rae Neutrophils/100 WBC (Bld) 78.2 % Critically high 43.0-75.0 [facility] Comment on above: Performed By: #### P SAFREE #### [facility] [address] [place] [address] Dr. Shabnam Rae Platelet mean volume (Bld) [Entitic vol] 10.9 fL Normal 9.5-13.5 [facility] Comment on above: Performed By: #### P SAFREE #### [facility] [address] [place] [address] Dr. Shabnam Rae PLT 153 103/ul Normal 150-450 [facility] Comment on above: Performed By: #### P SAFREE #### [facility] [address] [place] [address] Dr. Shabnam Rae RBC 4.64 106/ul Critically low 4.70-6.10 [facility] Comment on above: Performed By: #### P SAFREE #### [facility] [address] [place] [address] Dr. Shabnam Rae WBC 6.6 103/ul Normal 4.0-11.0 [facility] Comment on above: Performed By: #### P SAFREE #### [facility] [address] [place] [address] Dr. Shabnam Rae CRPon 01-05-2022 CRP 0.9 mg/dL Normal <=1.0 [facility] Comment on above: Performed By: #### P SAFREE #### [facility] [address] [place] [address] Dr. Shabnam Rae PROF 14(COMP METB)on 022 Albumin [Mass/Vol] 3.6 g/dL Normal 3.4-5.0 [facility] Comment on above: Performed By: #### P SAFREE #### [facility] [address] [place] [address] Dr. Shabnam Rae Albumin/Globulin [Mass ratio] 1.0 {ratio} Normal [facility] Comment on above: Performed By: #### P SAFREE #### [facility] [address] [place] [address] Dr. Shabnam Rae ALP [Catalytic activity/Vol] 114 U/L Normal 46-116 [facility] Comment on above: Performed By: #### P SAFREE #### [facility] [address] [place] [address] Dr. Shabnam Rae ALT [Catalytic activity/Vol] 26 U/L Normal 16-63 [facility] Comment on above: Performed By: #### P SAFREE #### [facility] [address] [place] [address] Dr. Shabnam Rae Anion gap [Moles/Vol] 9.3 mmol/L Normal [facility] Comment on above: Performed By: #### P SAFREE #### [facility] [address] [place] [address] Dr. Shabnam Rae AST [Catalytic activity/Vol] 19 U/L Normal 15-37 [facility] Comment on above: Performed By: #### P SAFREE #### [facility] [address] [place] [address] Dr. Shabnam Rae Bilirubin [Mass/Vol] 0.5 mg/dL Normal 0.2-1.0 [facility] Comment on above: Performed By: #### P SAFREE #### [facility] [address] [place] [address] Dr. Shabnam Rae Calcium [Mass/Vol] 8.9 mg/dL Normal 8.5-10.1 [facility] Comment on above: Performed By: #### P SAFREE #### [facility] [address] [place] [address] Dr. Shabnam Rae Chloride [Moles/Vol] 106 mmol/L Normal 98-107 [facility] Comment on above: Performed By: #### P SAFREE #### [facility] [address] [address] [address] Shabnam Rae CO2 [Moles/Vol] 30.7 mmol/L Normal 21.0-32.0 [facility] Comment on above: Performed By: #### P SAFREE #### [facility] [address] [address] [address] Shabnam Rae Creatinine [Mass/Vol] 1.15 mg/dL Normal 0.70-1.30 [facility] Comment on above: Performed By: #### P SAFREE #### [facility] [address] [place] [address] Dr. Shabnam Rae EGFR-AF TURKMEN >60 Normal >=60 [facility] Comment on above: Performed By: #### P SAFREE #### [facility] [address] [address] [address] Shabnam Rae EGFR-NON AF TURKMEN >60 Normal >=60 [facility] Comment on above: Performed By: #### P SAFREE #### [facility] [address] [address] [address] Shabnam Rae Globulin (S) [Mass/Vol] 3.6 g/dL Normal [facility] Comment on above: Performed By: #### P SAFREE #### [facility] [address] [address] [address] Shabnam Rae Glucose [Mass/Vol] 117 mg/dL Critically high 74-106 [facility] Comment on above: Performed By: #### P SAFREE #### [facility] [address] [address] [address] Shabnam Rae Potassium [Moles/Vol] 4.0 mmol/L Normal 3.5-5.1 [facility] Comment on above: Performed By: #### P SAFREE #### [facility] [address] [place] [address] Dr. Shabnam Rae Protein [Mass/Vol] 7.2 g/dL Normal 6.1-8.2 [facility] Comment on above: Performed By: #### P SAFREE #### [facility] [address] [address] [address] Shabnam Rae Sodium [Moles/Vol] 142 mmol/L Normal 136-145 [facility] Comment on above: Performed By: #### P SAFREE #### [facility] [address] [address] [address] Shabnam Rae Urea nitrogen [Mass/Vol] 15.0 mg/dL Normal 7.0-18.0 [facility] Comment on above: Performed By: #### P SAFREE #### [facility] [address] [address] [address] Shabnam Rae Urea nitrogen/Creatinine [Mass ratio] 13.0 mg/mg Normal [facility] Comment on above: Performed By: #### P SAFREE #### [facility] [address] [address] [address] Shabnam Rae US SCROTUMon 01-05-2022 US [...] ALVINA CAICEDO Date: 2022-01-05 08:48 Normal [facility] CBC AUTO DIFFon 01-04-2022 BASO # 0.1 103/ul Normal 0.0-0.1 [facility] Comment on above: Performed By: #### C BC #### [facility] [address] [place] [address] Dr. Shabanm Rae Basophils/100 WBC (Bld) 0.8 % Normal 0.2-2.0 [facility] Comment on above: Performed By: #### C BC #### [facility] [address] [place] [address] Dr. Shabnam Rae EO # 0.1 103/ul Normal 0.0-0.7 [facility] Comment on above: Performed By: #### C BC #### [facility] [address] [place] [address] Dr. Shabnam Rae Eosinophils/100 WBC (Bld) 1.5 % Normal 0.9-7.0 [facility] Comment on above: Performed By: #### C BC #### [facility] [address] [place] [address] Dr. Shabnam Rae Erythrocyte distribution width (RBC) [Ratio] 12.8 % Normal 11.0-15.0 [facility] Comment on above: Performed By: #### C BC #### [facility] [address] [place] [address] Dr. Shabnam Rae Hematocrit (Bld) [Volume fraction] 40.3 % Critically low 42.0-54.0 [facility] Comment on above: Performed By: #### C BC #### [facility] [address] [place] [address] Dr. Shabnam Rae Hemoglobin (Bld) [Mass/Vol] 13.4 g/dL Critically low 14.0-18.0 [facility] Comment on above: Performed By: #### C BC #### [facility] [address] [place] [address] Dr. Shabnam Rae IG # 0.03 10e3/ul Normal 0.00-0.03 [facility] Comment on above: Performed By: #### C BC #### [facility] [address] [place] [address] Dr. Shabnam Rae IG % 0.5 % Normal 0.0-0.5 [facility] Comment on above: Performed By: #### C BC #### [facility] [address] [place] [address] Dr. Shabnam Rae LYMPH # 1.0 103/ul Critically low 1.2-3.8 [facility] Comment on above: Performed By: #### C BC #### [facility] [address] [place] [address] Dr. Shabnam Rae Lymphocytes/100 WBC (Bld) 16.4 % Critically low 20.5-60.0 [facility] Comment on above: Performed By: #### C BC #### [facility] [address] [place] [address] Dr. Shabnam Rae MANUAL DIFF REQ NO Normal [facility] Comment on above: Performed By: #### C BC #### [facility] [address] [place] [address] Dr. Shabnam Rae MCH (RBC) [Entitic mass] 29.5 pg Normal 25.9-34.0 [facility] Comment on above: Performed By: #### C BC #### [facility] [address] [place] [address] Dr. Shabnam Rae MCHC (RBC) [Mass/Vol] 33.3 g/dL Normal 29.9-35.2 [facility] Comment on above: Performed By: #### C BC #### [facility] [address] [place] [address] Dr. Shabnam Rae MCV (RBC) [Entitic vol] 88.8 fL Normal 80.0-94.0 [facility] Comment on above: Performed By: #### C BC #### [facility] [address] [place] [address] Dr. Shabnam Rae MONO # 0.6 103/ul Normal 0.3-0.8 [facility] Comment on above: Performed By: #### C BC #### [facility] [address] [address] [address] Shabnam Rae Monocytes/100 WBC (Bld) 9.6 % Normal 1.7-12.0 [facility] Comment on above: Performed By: #### C BC #### [facility] [address] [address] [address] Shabnam Rae NEUT # 4.4 103/ul Normal 1.4-6.5 [facility] Comment on above: Performed By: #### C BC #### [facility] [address] [place] [address] Dr. Shabnam Rae Neutrophils/100 WBC (Bld) 71.2 % Normal 43.0-75.0 [facility] Comment on above: Performed By: #### C BC #### [facility] [address] [place] [address] Dr. Shabnam Rae Platelet mean volume (Bld) [Entitic vol] 10.8 fL Normal 9.5-13.5 [facility] Comment on above: Performed By: #### C BC #### [facility] [address] [place] [address] Dr. Shabnam Rae PLT 158 103/ul Normal 150-450 [facility] Comment on above: Performed By: #### C BC #### [facility] [address] [place] [address] Dr. Shabnam Rae RBC 4.54 106/ul Critically low 4.70-6.10 [facility] Comment on above: Performed By: #### C BC #### [facility] [address] [place] [address] Dr. Shabnam Rae WBC 6.2 103/ul Normal 4.0-11.0 [facility] Comment on above: Performed By: #### C BC #### [facility] [address] [place] [address] ABD/PELV W CONon [...] MAYRA BERNAL Date: 2022-01-04 05:19 Normal [facility] CT PELVIS WO CONon CT PELVIS WO CON EXAMINATION: CT PELV [...] MANUEL BRENNANH Date: 2022-01-04 08:54 Normal [facility] CULTURE URINEon 01-04-2022 CULTURE URINE Culture Observations : No growth Normal [facility] Comment on above: Performed By: #### P [facility] #### [facility] [address] [place] [address] Dr. Shabnam Rae Covid-19 PCR ([facility])on 12-13 SARS-CoV-2 (COVID-19) RNA ELIJAH+probe Ql (Unsp spec) Not detected Normal NOT DETECTED [facility] Comment on above: Result Comment: When diagnostic testing is negative, the possibility of a false negative should be considered in the context of a patient's recent exposures and the presence of clinical signs and symptoms consistent with SARS-CoV-2. This test is not yet approved or cleared by the [place] Food and Drug Administration (FDA). This test was developed by [employer], [place], [place]. The performance characteristics of this test were validated by [facility]. The results are not intended to be used as the sole means for clinical diagnosis or patient management decisions. [facility] is authorized under Clinical Laboratory Improvement [...] for this test is supported by the [employer] Manager of Health and Human Service's declaration [...] used). Performed By: #### C VDTB #### [facility] [address] [place] [address] Dr. Shabnam Rae ER URINE PROFILEon 2 Bilirubin Ql (U) Negative Normal NEGATIVE [facility] Comment on above: Performed By: #### P SASC #### [facility] [address] [place] [address] Dr. Shabnam Rae Clarity (U) CLEAR Normal CLEAR [facility] Comment on above: Performed By: #### P SASC #### [facility] [address] [place] [address] Dr. Shabnam Rae Color (U) YELLOW Normal YELLOW [facility] Comment on above: Performed By: #### P SASC #### [facility] [address] [place] [address] Dr. Shabnam Rae ERUAHD A micrscopic examination will be performed if indicated. Normal [facility] Comment on above: Performed By: #### P SASC #### [facility] [address] [place] [address] Dr. Shabnam Rae Glucose Ql (U) Negative Normal NEGATIVE [facility] Comment on above: Performed By: #### P SASC #### [facility] [address] [place] [address] Dr. Shabnam Rae Hemoglobin Ql (U) Negative Normal NEGATIVE [facility] Comment on above: Performed By: #### P SASC #### [facility] [address] [address] [address] Shabnam Rae Ketones Ql (U) Negative Normal NEGATIVE [facility] Comment on above: Performed By: #### P SASC #### [facility] [address] [address] [address] Shabnam Rae LEUKOCYTES Negative Normal NEGATIVE [facility] Comment on above: Performed By: #### P SASC #### [facility] [address] [address] [address] Shabnam Rae Nitrite Ql (U) Negative Normal NEGATIVE [facility] Comment on above: Performed By: #### P SASC #### [facility] [address] [place] [address] Dr. Shabnam Rae pH (U) 6.5 [pH] Normal 5-9 [facility] [facility] Comment on above: Performed By: #### P SASC #### [facility] [address] [place] [address] Dr. Shabnam Rae SPEC GRAVITY 1.010 Normal 1.005-<=1.025 [facility] Comment on above: Performed By: #### P SASC #### [facility] [address] [place] [address] Dr. Shabnam Rae UA PROTEIN Negative Normal NEGATIVE/ TRACE [facility] Comment on above: Performed By: #### P SASC #### [facility] [address] [address] [address] Shabnam Rae UR MICRO IND NOT INDICATED Normal [facility] Comment on above: Performed By: #### P SASC #### [facility] [address] [address] [address] Shabnam Rae Urobilinogen Qn (U) 0.2 {Sarai'U}/dL Normal 0.2 - 1. 0 [facility] Comment on above: Performed By: #### P SASC #### [facility] [address] [place] [address] Dr. Shabnam Rae LACTATE/LACTIC ACIDon 2021 Lactate [Moles/Vol] 1.0 mmol/L Normal 0.4-2.0 [facility] Comment on above: Performed By: #### P SASC #### [facility] [address] [address] [address] Shabnam Rae PROF CHEM 8 (BAS METB)on Anion gap [Moles/Vol] 10.0 mmol/L Normal [facility] Comment on above: Performed By: #### B MP #### [facility] [address] [address] [address] Shabnam Rae Calcium [Mass/Vol] 8.5 mg/dL Normal 8.5-10.1 [facility] Comment on above: Performed By: #### B MP #### [facility] [address] [place] [address] Dr. Shabnam Rae Chloride [Moles/Vol] 103 mmol/L Normal 98-107 [facility] Comment on above: Performed By: #### B MP #### [facility] [address] [address] [address] Shabnam Rae CO2 [Moles/Vol] 29.2 mmol/L Normal 21.0-32.0 [facility] Comment on above: Performed By: #### B MP #### [facility] [address] [place] [address] Dr. Shabnam Rae Creatinine [Mass/Vol] 1.25 mg/dL Normal 0.70-1.30 [facility] Comment on above: Performed By: #### B MP #### [facility] [address] [address] [address] Shabnam Rae EGFR-AF TURKMEN >60 Normal >=60 The [facility] Comment on above: Performed By: #### B MP #### [facility] [address] [address] [address] Shabnam Rae EGFR-NON AF TURKMEN >60 Normal >=60 [facility] Comment on above: Performed By: #### B MP #### [facility] [address] [place] [address] Dr. Shabnam Rae Glucose [Mass/Vol] 132 mg/dL Critically high 74-106 T [facility] Comment on above: Performed By: #### B MP #### [facility] [address] [address] [address] Shabnam Rae Potassium [Moles/Vol] 3.2 mmol/L Critically low 3.5-5.1 [facility] Comment on above: Performed By: #### B MP #### [facility] [address] [address] [address] Shabnam Rae Sodium [Moles/Vol] 139 mmol/L Normal 136-145 [facility] Comment on above: Performed By: #### B MP #### [facility] [address] [address] [address] Shabnam Rae Urea nitrogen [Mass/Vol] 19.0 mg/dL Critically high 7.0-18.0 [facility] Comment on above: Performed By: #### B MP #### [facility] [address] [address] [address] Shabnam Rae Urea nitrogen/Creatinine [Mass ratio] 15.2 mg/mg Normal [facility] Comment on above: Performed By: #### B MP #### [facility] [address] [place] [address] Dr. Shabnam Rae CERVICAL SPINE 2 OR 3 [facility] 07-06-2019 CERVICAL SPINE 2 OR 3 [facility] Department of Radiology [address] [place] [id number] ======== Patient Name: MATTY GARCES : 1970 Sex: M Age: Race: White Pt. Location: Patient Status: O Ordered Date: 07/06/2019 9:10:00 AM Completed Date: 07/06/2019 09:21 AM Requesting Provider: LUCIANO DAVIS Attending Provider: LUCIANO DAVIS Report Copy To: MIL VENUS Signs & Symptoms: M48.02 Spinal stenosis, cervical region I10 History: [place] Comments: , STAT READ , STAT READ [...] soft tissue. * Alignment appears appropriate. Approved by:aRdha Ballard on 07/06/2019 11:31 AM EDT. I, Bernice Hoyt, have reviewed the images and report and concur with these findings. Electronically signed by:Bernice Hoyt. Transcribed by: [email or web address], User Resident: RADHA CHIN Electronically Signed by: BERNICE HOYT @ 07/06/2019 08:52 PM I personally read this/these film(s) with this resident Normal [facility] Comment on above: Order Comment: , STA T READ , STAT READ , , , Ordering Provider - LUCIANO DAVIS MD , CERVICAL SPINE 2 OR 3 Son 04-06-2019 CERVICAL SPINE 2 OR 3 S [facility] Department of Radiology [address] [place] [id number] ======== Patient Name: MATTY GARCES : [...] FALLS Exam: CERVICAL SPINE 2 OR 3 [facility] ======== CERVICAL SPINE 2 OR [...] study. Electronically signed by:Bernice Hoyt. Transcribed by: [email or web address], User Resident: Electronically Signed by: BERNICE HOYT @ 04/06/2019 04:40 PM Normal [facility] Comment on above: Order Comment: AP/LA T, ODONTOID PLEASE DO SWIMMER'S VIEW FOLLOW UP HARDWARE AND ALIGNMENT, S/P ACDF, RECENT FALLS CERVICAL SPINE 2 OR 3 [facility] 02-17-2019 CERVICAL SPINE 2 OR 3 [facility] Department of Radiology [address] [place] [id number] ======== Patient Name: MATTY GARCES : [...] S ======== CERVICAL SPINE 2 OR 3 VWS [...] findings. Electronically signed by:Bella King. Transcribed by: [email or web address], User Resident: KENNETH DUVAL Electronically Signed by: BELLA KING @ 02/20/2019 11:53 AM I personally read this/these film(s) with this resident Normal [facility] Comment on above: Order Comment: C-SPI NE 2 OR 3 VIEW POSTOP, EVALUATION HARDWARE AN ALIGNMENT BASIC METABOLIC PANELon 01-12 Calcium [Mass/Vol] 9.2 mg/dL Normal 8.6-10.3 [facility] Comment on above: Order Comment: No: D o not add to previous draw Performed By: #### 5 0103 #### [facility] [address] [place] [address], [place] Chloride [Moles/Vol] 101 mmol/L Normal 98-107 [facility] Comment on above: Order Comment: No: D o not add to previous draw Performed By: #### 5 0103 #### [facility] [address] [place] [address], [place] CO2 [Moles/Vol] 26 mmol/L Normal 21-31 [facility] Comment on above: Order Comment: No: D o not add to previous draw Performed By: #### 5 0103 #### [facility] [address] [place] [address], [place] Creatinine [Mass/Vol] 1.02 mg/dL Normal 0.70-1.30 [facility] Comment on above: Order Comment: No: D o not add to previous draw Performed By: #### 5 0103 #### [facility] [address] [place] [address], [place] GFR/1.73 sq M predicted among blacks MDRD (S/P/Bld) [Vol rate/Area] mL/min/{1.73_m2} Normal >60 [facility] Comment on above: Order Comment: No: D o not add to previous draw Performed By: #### 5 0103 #### [facility] [address] [place] [address], [place] GFR/1.73 sq M predicted among non-blacks MDRD (S/P/Bld) [Vol rate/Area] mL/min/{1.73_m2} Normal >60 [facility] Comment on above: Order Comment: No: D o not add to previous draw Performed By: #### 5 0103 #### [facility] [address] [place] [address], [place] Glucose [Mass/Vol] 124 mg/dL High 70-100 [facility] Comment on above: Order Comment: No: D o not add to previous draw Performed By: #### 5 0103 #### [facility] [address] [place] [address], [place] Potassium [Moles/Vol] 3.9 mmol/L Normal 3.5-5.1 [facility] Comment on above: Order Comment: No: D o not add to previous draw Performed By: #### 5 0103 #### [facility] [address] [place] [address], [place] Sodium [Moles/Vol] 137 mmol/L Normal 136-145 [facility] Comment on above: Order Comment: No: D o not add to previous draw Performed By: #### 5 0103 #### [facility] [address] [place] [address], [place] Urea nitrogen [Mass/Vol] 15 mg/dL Normal 7-25 [facility] Comment on above: Order Comment: No: D o not add to previous draw Performed By: #### 5 0103 #### [facility] [address] [place] [address], [place] CBC COMPLETE BLOOD COUNTon - Erythrocyte distribution width (RBC) [Ratio] 13.9 % Normal 11.5-15.0 [facility] Comment on above: Order Comment: No: D o not add to previous draw Performed By: #### 5 0103 #### [facility] [address] [place] [address], [place] Hematocrit (Bld) [Volume fraction] 50.0 % Normal 39.0-50.0 [facility] Comment on above: Order Comment: No: D o not add to previous draw Performed By: #### 5 0103 #### [facility] [address] [place] [address], [place] Hemoglobin (Bld) [Mass/Vol] 16.0 g/dL Normal 13.0-17.0 [facility] Comment on above: Order Comment: No: D o not add to previous draw Performed By: #### 5 0103 #### [facility] [address] [place] [address], [facility] MCH (RBC) [Entitic mass] 27.5 pg Normal 27.0-33.0 [facility] Comment on above: Order Comment: No: D o not add to previous draw Performed By: #### 5 0103 #### [facility] [address] [place] [address], [facility] MCHC (RBC) [Mass/Vol] 32.0 g/dL Normal 32.0-35.0 [facility] Comment on above: Order Comment: No: D o not add to previous draw Performed By: #### 5 0103 #### [facility] [address] [place] [address], [facility] MCV (RBC) [Entitic vol] 85.9 fL Normal 82.0-98.0 [facility] Comment on above: Order Comment: No: D o not add to previous draw Performed By: #### 5 0103 #### [facility] [address] [place] [address], [facility] Nucleated RBC/100 WBC (Bld) [Ratio] 0 % Normal 0-0 [facility] Comment on above: Order Comment: No: D o not add to previous draw Performed By: #### 5 0103 #### [facility] [address] [place] [address], [facility] PLAT CNT 249 10*3/uL Normal 150-400 [facility] Comment on above: Order Comment: No: D o not add to previous draw Performed By: #### 5 0103 #### [facility] [address] [place] [address], [facility] RBC (Bld) [#/Vol] 5.82 10*6/uL High 4.20-5.70 [facility] Comment on above: Order Comment: No: D o not add to previous draw Performed By: #### 5 0103 #### [facility] [address] [place] [address], [facility] WBC (Bld) [#/Vol] 15.85 10*3/uL High 4.00-10.60 [facility] Comment on above: Order Comment: No: D o not add to previous draw Performed By: #### 5 0103 #### [facility] [address] Operative Reporton 9 Operative Report MR#: [id number] I [facility] Pt. Name: Matty Garces Room #: [id number] Discharge Date: Birthdate: 1970 OPERATIVE REPORT DATE OF SURGERY: 01/30/2019 SURGEON: Luciano Davis M.D. 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 POSTOPERATIVE DIAGNOSIS: Failed instrumentation at C6-7 on the right. SCIENCE SPECIALIST: ADENIKE Lugo. ANESTHESIA: Endotracheal, Hogan. PROCEDURES: Redo [...] Davis M.D. Date Trans: 01/31/2019 02:31 Mark [id number] cc: Venus Jaeger M.D. [address] [id number] [place] [facility] CERVICAL SPINE 2 OR 3 [facility] 01-30-2019 CERVICAL SPINE 2 OR 3 [facility] Department of Radiology [address] [place] [address] ======== Patient Name: MATTY GARCES [...] documentation Electronically signed by:Justus Murphy. Transcribed by: [email or web address], User Resident: Electronically Signed by: JUSTUS MURPHY @ 01/30/2019 04:18 PM Normal [facility] Comment on above: Order Comment: C6-7 ACDF POC GLUCOSE LABon 01-30-2019 Glucose [Mass/Vol] 106 mg/dL High 70-100 [facility] Comment on above: Performed By: #### 5 0103 #### [address] [place] [address], [facility] *MRSA/MSSA DNA NASALon 01-23 *MRSA/MSSA DNA NASAL Clinical Report: (D ) Specimen: NASAL SWAB Collected: 01/23/2019 15:02 Status: Final Last Updated: 01/23/2019 20:14 MSSA DNA (Final) Methicillin Susceptible Staphylococcus aureus DNA Detected MRSA DNA (Final) No Methicillin Resistant Staphylococcus aureus DNA Detected Normal [facility] Comment on above: Performed By: #### 5 0103 #### [facility] [address] [place] [address], [facility] APTTon 01-23-2019 aPTT Coag (Bld) [Time] 35.4 s High 25.0-35.0 [facility] Comment on above: Result Comment: ALL [...] THIS PURPOSE. Performed By: #### 5 7307, [address]08 #### [facility] [address] [facility] [place] [address], [facility] BASIC METABOLIC PANELon 01-11 Calcium [Mass/Vol] 9.5 mg/dL Normal 8.6-10.3 [facility] Comment on above: Performed By: #### 5 7307, 59456 #### [facility] [address] [facility] [place] [address], [facility] Chloride [Moles/Vol] 101 mmol/L Normal 98-107 [facility] Comment on above: Performed By: #### 5 7307, 22432 #### [facility] [address] [facility] [place] [address], [facility] CO2 [Moles/Vol] 29 mmol/L Normal 21-31 [facility] Comment on above: Performed By: #### 5 7307, 13831 #### [facility] [address] [place] [address], [facility] Creatinine [Mass/Vol] 1.08 mg/dL Normal 0.70-1.30 [facility] Comment on above: Performed By: #### 5 73, 42766 #### [facility] [address] [place] [address], [place] GFR/1.73 sq M predicted among blacks MDRD (S/P/Bld) [Vol rate/Area] mL/min/{1.73_m2} Normal >60 [facility] Comment on above: Performed By: #### 5 73, 55533 #### [facility] [address] [place] [address], [place] GFR/1.73 sq M predicted among non-blacks MDRD (S/P/Bld) [Vol rate/Area] mL/min/{1.73_m2} Normal >60 [facility] Comment on above: Performed By: #### 5 73, 15903 #### [facility] [address] [place] [address], [place] Glucose [Mass/Vol] 87 mg/dL Normal 70-100 [facility] Comment on above: Performed By: #### 5 73, 35125 #### [facility] [address] [place] [address], [place] Potassium [Moles/Vol] 4.0 mmol/L Normal 3.5-5.1 [facility] Comment on above: Performed By: #### 5 7307, 94009 #### [facility] [address] [place] [address], [place] Sodium [Moles/Vol] 137 mmol/L Normal 136-145 [facility] Comment on above: Performed By: #### 5 7307, 58450 #### [facility] [address] [place] [address], [place] Urea nitrogen [Mass/Vol] 12 mg/dL Normal 7-25 [facility] Comment on above: Performed By: #### 5 7307, 66885 #### [facility] [address] [place] [address], [place] CBC W/DIFFon 05-13-2019 ABS BASOPHILS 0.1 10*3/uL Normal 0.0-0.2 The [facility] Comment on above: Performed By: #### 5 Al, 83330 #### [facility] [address] [facility]. [address] ABS IMM GRANS 0.0 10*3/uL Normal 0.0-0.2 The [facility] Comment on above: Performed By: #### 5 Al, 70516 #### [facility] [address] ABS NEUTROPHILS 5.3 10*3/uL Normal 1.6-7.6 The [facility] Comment on above: Performed By: #### 5 Al, [address]34 #### [facility] [address] Basophils/100 WBC (Bld) 0.9 % Normal 0.0-1.0 [facility] Comment on above: Performed By: #### 5 Al, 10428 #### [facility] [address] [place] [address], [facility] Eosinophils (Bld) [#/Vol] 0.2 10*3/uL Normal 0.0-0.5 [facility] Comment on above: Performed By: #### 5 Al, 76442 #### [facility] [address] Eosinophils/100 WBC (Bld) 2.3 % Normal 0.0-6.0 [facility] Comment on above: Performed By: #### 5 Al, 17889 #### [facility] [address] Erythrocyte distribution width (RBC) [Ratio] 13.8 % Normal 11.5-15.0 [facility] Comment on above: Performed By: #### 5 Al, 83226 #### [facility] [address] [place] [address], [facility] Hematocrit (Bld) [Volume fraction] 49.6 % Normal 39.0-50.0 [facility] Comment on above: Performed By: #### 5 7306, 32713 #### [facility] [address] [place] [address], [facility] Hemoglobin (Bld) [Mass/Vol] 16.4 g/dL Normal 13.0-17.0 [facility] Comment on above: Performed By: #### 5 7306, 34786 #### [facility] [address] [facility] [place] [address], [facility] IMMATURE GRANS 0.5 % Normal 0.0-1.0 The [facility] Comment on above: Performed By: #### 7306, 25341 #### [facility] [address] [facility] [place] [address], [facility] Lymphocytes (Bld) [#/Vol] 1.2 10*3/uL Normal 1.2-4.0 [facility] Comment on above: Performed By: #### 5 7306, 33017 #### [facility] [address] [facility] [place] [address], [facility] Lymphocytes/100 WBC (Bld) 16.6 % Low 20.0-45.0 [facility] Comment on above: Performed By: #### 5 7306, 13551 #### [facility] [address] [facility] [place] [address], [facility] MCH (RBC) [Entitic mass] 27.8 pg Normal 27.0-33.0 [facility] Comment on above: Performed By: #### 5 7306, 79422 #### [facility] [address] [place] [address], [facility] MCHC (RBC) [Mass/Vol] 33.1 g/dL Normal 32.0-35.0 [facility] Comment on above: Performed By: #### 5 7306, 20165 #### [facility] [address] [place] [address], [facility] MCV (RBC) [Entitic vol] 84.2 fL Normal 82.0-98.0 [facility] Comment on above: Performed By: #### 5 7306, 29832 #### [facility] [address] [place] [address], [facility] Monocytes (Bld) [#/Vol] 0.7 10*3/uL Normal 0.1-1.0 [facility] Comment on above: Performed By: #### 5 7306, 16309 #### [facility] [address] [facility] [place] [address], [facility] MONOS 9.4 % Normal 5.0-12.0 [facility] Comment on above: Performed By: #### 5 7306, 55570 #### [facility] [address] [place] [address], [facility] Neutrophils/100 WBC (Bld) 70.3 % Normal 40.0-72.0 [facility] Comment on above: Performed By: #### 5 7306, 74444 #### [facility] [address] [place] [address], [facility] Nucleated RBC/100 WBC (Bld) [Ratio] 0 % Normal 0-0 [facility] Comment on above: Performed By: #### 5 7306, 36383 #### [facility] [address] [place] [address], [facility] PLAT CNT 235 10*3/uL Normal 150-400 [facility] Comment on above: Performed By: #### 5 73, 26705 #### [facility] [address] [place] [id number], [facility] RBC (Bld) [#/Vol] 5.89 10*6/uL High 4.20-5.70 [facility] Comment on above: Performed By: #### 5 7307, 43556 #### [facility] [address] WBC (Bld) [#/Vol] 7.48 10*3/uL Normal 4.00-10.60 [facility] Comment on above: Performed By: #### 5 7307, 47004 #### [facility] [address] PROTHROMBIN TIMEon 9 INR Coag (PPP) [Relative time] 1.12 {INR} Normal 0.91-1.16 [facility] Comment on above: Result Comment: ACCC [...] CHEST 1995;108:[id number]-246S. Performed By: #### 5 7307, 94686 #### [facility] [address] PT Coag (PPP) [Time] 14.4 s Normal 12.3-14.8 [facility] Comment on above: Result Comment: ALL RESULTS MUST BE INTERPRETED WITH RESPECT TO BLOOD DRAWING ARTIFACT OR DILUTION ERROR OF ANTICOAGULANT AT THE TIME OF SAMPLING. Performed By: #### 5 7307, 63256 #### [facility] [address] [place] [address], [facility] TYPE AND SCREENon 01-23-2019 ABO INTERPRETATION A Normal [facility] Comment on above: Performed By: #### 5 7307, 06951 #### [facility] [address] [place] [address], [facility] RH INTERPRETATION Positive Normal [facility] Comment on above: Performed By: #### 5 7307, 36395 #### [facility] [address] [place] [address], [facility] CT 3D CERVICAL SPINE WO CONT RASTon 01-12-2019 CT 3D CERVICAL SPINE WO CONTRAST [facility] Department of Radiology [address] [place] [address] ======== Patient Name: MATTY GARCES : 1970 Sex: M Age: Race: White Pt. Location: Patient Status: D Ordered Date: 01/10/2019 2:15:00 PM Completed Date: 01/12/2019 10:32 AM Requesting Provider: LUCIANO DAVIS Attending Provider: LUCIANO DAVIS Report Copy To: VENUS JAEGER Signs & Symptoms: M48.02 Spinal stenosis, cervical region I10 History: [place] para auth # [id number] 01/10/19-02/09/19 [id number] *er Comments: Exam: CT 3D CERVICAL SPINE [...] incomplete Electronically signed by:Ten Uriarte. Transcribed by: [email or web address], User Resident: Electronically Signed by: TEN URIARTE @ 01/13/2019 09:18 AM Normal [facility] CERVICAL SPINE 2 OR 3 [facility] 01-05-2019 CERVICAL SPINE 2 OR 3 [facility] Department of Radiology [address] [place] [id number] ======== Patient Name: MATTY GARCES : 1970 Sex: M Age: Race: White Pt. Location: 85 Patient Status: O Ordered Date: 01/05/2019 9:00:00 AM Completed Date: 01/05/2019 09:06 AM Requesting Provider: LUCIANO DAVIS Attending Provider: LUCIANO DAVIS Report Copy To: Signs & Symptoms: M48.02 Spinal stenosis, cervical region I10 History: [place] Comments: , , , Ordering Provider - LUCIANO DAVIS MD , Exam: CERVICAL SPINE 2 OR 3 [facility] ======== CERVICAL SPINE 2 OR 3 [facility] 01/05/2019 [...] findings. Electronically signed by:Ten Uriarte. Transcribed by: [email or web address], User Resident: SHELLY DELA CRUZ Electronically Signed by: TEN URIARTE @ 01/05/2019 12:37 PM I personally read this/these film(s) with this resident Normal [facility] Comment on above: Order Comment: , , = ========= , Ordering Provider - LUCIANO DAVIS MD , CERVICAL SPINE 2 OR 3 [facility] 08-30-2018 CERVICAL SPINE 2 OR 3 [facility] Department of Radiology [address] [place] [id number] ======== Patient Name: MATTY GARCES : 1970 Sex: M Age: Race: White Pt. Location: Patient Status: O Ordered Date: 08/30/2018 9:35:00 AM Completed Date: 08/30/2018 09:43 AM Requesting Provider: LUCIANO DAVIS Attending Provider: LUCIANO DAVIS Report Copy To: VENUS JAEGER Signs & Symptoms: M50.90 Cervical disc disorder, unsp, unspecified cervical region I10 History: [place] Comments: , POST OP XRAY AP/LAT ONLY , POST OP XRAY AP/LAT ONLY , , , Ordering Provider - LUCIANO DAVIS MD , Exam: CERVICAL SPINE 2 OR 3 [facility] ======== CERVICAL SPINE 2 OR [...] findings. Electronically signed by:Bella King. Transcribed by: [email or web address], User Resident: RYAN ANDERSON Electronically Signed by: BELLA KING @ 08/30/2018 05:45 PM I personally read this/these film(s) with this resident Normal [facility] Comment on above: Order Comment: , POS T OP XRAY AP/LAT ONLY , POST OP XRAY AP/LAT ONLY , , , Ordering Provider - LUCIANO DAVIS MD , Operative Reporton 8 Operative Report MR#: [id number] I [facility] Pt. Name: Matty Garces #: [id number] Discharge Date: Birthdate: 1970 OPERATIVE REPORT DATE OF SURGERY: 08/17/2018 SURGEON: Luciano Davis M.D. PREOPERATIVE DIAGNOSIS: Herniated cervical disk at C6-7. POSTOPERATIVE DIAGNOSIS: Herniated cervical disk at C6-7. SCIENCE SPECIALIST: ADENIKE Larios. ANESTHESIA: Endotracheal, Braida. PROCEDURE: Anterior [...] A Luciano Davis M.D. Date Dict: 08/17/2018/12:31 P/Luciaon Davis M.D. Date Trans: 08/17/2018 11:25 P/sasha [id number] cc: Venus Jaeger M.D. [address], [facility] [id number] [place] [facility] CERVICAL SPINE 2 OR 3 [facility] 08-17-2018 CERVICAL SPINE 2 OR 3 [facility] Department of Radiology [address] [place] [id number] ======== Patient Name: MATTY GARCES : [...] findings. Electronically signed by:Bernice Hoyt. Transcribed by: [email or web address], User Resident: KENNETH DUVAL Electronically Signed by: BERNICE HOYT @ 08/18/2018 01:06 PM I personally read this/these film(s) with this resident Normal [facility] Comment on above: Order Comment: C6-7 ACDF with POC GLUCOSE LABon 08-17-2018 Glucose [Mass/Vol] 113 mg/dL High 70-100 [facility] Comment on above: Performed By: #### 8 [id number] #### [facility] [address] [place] [address], [place] RBC'S 2 UNITSon 08-17-2018 CROSSMATCH INTERP 1 COMP Normal [facility] Comment on above: Performed By: #### 8 6002 #### [facility] [address] [place] [address], [place] CROSSMATCH INTERP 2 COMP Normal [facility] Comment on above: Performed By: #### 8 6002 #### [facility] [address] [place] [address], [place] PRODUCT CODE 1 E0336 Normal The [facility] Comment on above: Performed By: #### 8 6002 #### [facility] [address] [place] [address], [place] PRODUCT CODE 2 E0336 Normal The [facility] Comment on above: Performed By: #### 8 6002 #### [facility] [address] [place] [address], [place] PRODUCT STATUS 1 RE Normal [facility] Comment on above: Result Comment: Resu lt changed by IF on 08/20/2018 07:48. The previous value was XM. Performed By: #### 8 6002 #### [facility] [address] [place] [address], [place] PRODUCT STATUS 2 RE Normal The [facility] Comment on above: Result Comment: Resu lt changed by IF on 08/20/2018 07:48. The previous value was XM. Performed By: #### 8 6002 #### [facility] [address] [place] [address], [place] UNIT ABO 1 A Normal [facility] Comment on above: Performed By: #### 8 6002 #### [facility] [address] [place] [address], [place] UNIT ABO 2 A Normal [facility] Comment on above: Performed By: #### 8 6002 #### [facility] [address] UNIT ID 1 [id number] Normal [facility] Comment on above: Performed By: #### 8 6002 #### [facility] [address] [place] [address], [facility] UNIT ID 2 [id number] Normal [facility] Comment on above: Performed By: #### 8 6002 #### [facility] [address] [facility] [place] [address], [facility] UNIT RH 1 Positive Normal [facility] Comment on above: Performed By: #### 8 6002 #### [facility] [address] [facility] [address] UNIT RH 2 Positive Normal [facility] Comment on above: Performed By: #### 8 6002 #### [facility] [address] [facility] [address] *MRSA/MSSA CULTUREon 018 *MRSA/MSSA CULTURE Clinical Report: (D) Specimen: NASAL SWAB Collected: 08/02/2018 12:37 Status: Final Last Updated: 08/03/2018 14:26 ISO (Final) No Methicillin Resistant Staphylococcus aureus Isolated (MRSA) ISO (Final) Methicillin Sensitive Staphylococcus aureus (MSSA) Isolated Normal [facility] Comment on above: Performed By: #### 3 1302 #### [facility] [address] APTTon 08-02-2018 aPTT Coag (Bld) [Time] 31.2 s Normal 25.0-35.0 [facility] Comment on above: Result Comment: ALL [...] THIS PURPOSE. Performed By: #### 5 7307, 03834 #### [facility] [address] [place] [address], [facility] BASIC METABOLIC PANELon 11-2 0 Calcium [Mass/Vol] 9.4 mg/dL Normal 8.6-10.3 [facility] Comment on above: Performed By: #### 0 0071 #### [facility] [address] [place] [address], [facility] Chloride [Moles/Vol] 103 mmol/L Normal 98-107 [facility] Comment on above: Performed By: #### 0 0071 #### [facility] [address] [place] [address], [facility] CO2 [Moles/Vol] 29 mmol/L Normal 21-31 [facility] Comment on above: Performed By: #### 0 0071 #### [facility] [address] [place] [address], [facility] Creatinine [Mass/Vol] 1.06 mg/dL Normal 0.70-1.30 [facility] Comment on above: Performed By: #### 0 0071 #### [facility] [address] [place] [address], [facility] GFR/1.73 sq M predicted among blacks MDRD (S/P/Bld) [Vol rate/Area] mL/min/{1.73_m2} Normal >60 [facility] Comment on above: Performed By: #### 0 0071 #### [facility] [address] [place] [id number], [facility] GFR/1.73 sq M predicted among non-blacks MDRD (S/P/Bld) [Vol rate/Area] mL/min/{1.73_m2} Normal >60 [facility] Comment on above: Performed By: #### 0 0071 #### [facility] [address] [facility] [place] [address], [facility] Glucose [Mass/Vol] 84 mg/dL Normal 70-100 [facility] Comment on above: Performed By: #### 0 0071 #### [facility] [address] [facility] [place] [address], [facility] Potassium [Moles/Vol] 4.0 mmol/L Normal 3.5-5.1 [facility] Comment on above: Performed By: #### 0 0071 #### [facility] 3000 [facility] [place] [address], [facility] Sodium [Moles/Vol] 140 mmol/L Normal 136-145 [facility] Comment on above: Performed By: #### 0 1 #### [facility] [address] Urea nitrogen [Mass/Vol] 20 mg/dL Normal 7-25 [facility] Comment on above: Performed By: #### 0 1 #### [facility] [address] [facility] [place] [address], [facility] CBC W/DIFFon 08-02-2018 ABS BASOPHILS 0.1 10*3/uL Normal 0.0-0.2 The [facility] Comment on above: Performed By: #### 5 102 #### [facility] 3000 [facility]. [address] ABS IMM GRANS 0.1 10*3/uL Normal 0.0-0.2 The [facility] Comment on above: Performed By: #### 5 102 #### [facility] [address] ABS NEUTROPHILS 4.2 10*3/uL Normal 1.6-7.6 The [facility] Comment on above: Performed By: #### 5 102 #### [facility] [address] [place] [address], [facility] Basophils/100 WBC (Bld) 1.3 % High 0.0-1.0 [facility] Comment on above: Performed By: #### 5 0103 #### [facility] [address] [place] [address], [facility] Eosinophils (Bld) [#/Vol] 0.1 10*3/uL Normal 0.0-0.5 [facility] Comment on above: Performed By: #### 5 0103 #### [facility] [address] [facility] [place] [address], [facility] Eosinophils/100 WBC (Bld) 2.0 % Normal 0.0-6.0 [facility] Comment on above: Performed By: #### 5 3 #### [facility] [address] [facility] [address] Erythrocyte distribution width (RBC) [Ratio] 13.6 % Normal 11.5-15.0 [facility] Comment on above: Performed By: #### 5 3 #### [facility] [address] Hematocrit (Bld) [Volume fraction] 44.3 % Normal 39.0-50.0 [facility] Comment on above: Performed By: #### 5 3 #### [facility] [address] [facility] [address] Hemoglobin (Bld) [Mass/Vol] 15.1 g/dL Normal 13.0-17.0 [facility] Comment on above: Performed By: #### 5 0103 #### [facility] [address] [facility] [place] [address], [facility] IMMATURE GRANS 1.1 % High 0.0-1.0 The [facility] Comment on above: Performed By: #### 5 3 #### [facility] [address] Lymphocytes (Bld) [#/Vol] 1.2 10*3/uL Normal 1.2-4.0 [facility] Comment on above: Performed By: #### 5 3 #### [facility] [address] [place] [address], [facility] Lymphocytes/100 WBC (Bld) 18.3 % Low 20.0-45.0 [facility] Comment on above: Performed By: #### 102 #### [facility] [address] [place] [address], [facility] MCH (RBC) [Entitic mass] 29.0 pg Normal 27.0-33.0 [facility] Comment on above: Performed By: #### 102 #### [facility] [address] MCHC (RBC) [Mass/Vol] 34.1 g/dL Normal 32.0-35.0 [facility] Comment on above: Performed By: #### 102 #### [facility] [address] [place] [address], [facility] MCV (RBC) [Entitic vol] 85.0 fL Normal 82.0-98.0 [facility] Comment on above: Performed By: #### 3 #### [facility] [address] [place] [address], [facility] Monocytes (Bld) [#/Vol] 0.7 10*3/uL Normal 0.1-1.0 [facility] Comment on above: Performed By: #### 5 3 #### [facility] [address] [place] [address], [facility] MONOS 11.1 % Normal 5.0-12.0 [facility] Comment on above: Performed By: #### 5 3 #### [facility] [address] [place] [id number], [facility] Neutrophils/100 WBC (Bld) 66.2 % Normal 40.0-72.0 [facility] Comment on above: Performed By: #### 5 0103 #### [facility] [address] [facility] [place] [address], [facility] Nucleated RBC/100 WBC (Bld) [Ratio] 0 % Normal 0-0 [facility] Comment on above: Performed By: #### 5 0103 #### [facility] [address] [place] [address], [facility] PLAT CNT 179 10*3/uL Normal 150-400 [facility] Comment on above: Performed By: #### 5 0103 #### [facility] [address] [place] [address], [facility] RBC (Bld) [#/Vol] 5.21 10*6/uL Normal 4.20-5.70 The [facility] Comment on above: Performed By: #### 5 0103 #### [facility] [address] [place] [address], [facility] WBC (Bld) [#/Vol] 6.39 10*3/uL Normal 4.00-10.60 The [facility] Comment on above: Performed By: #### 5 0103 #### [address] CERVICAL SPINE 4 OR 5 VIEWSo n 08-02-2018 CERVICAL SPINE 4 OR 5 VIEWS [facility] Department of Radiology [address] [place] [address] ======== Patient Name: MATTY GARCES : 1970 Sex: M Age: Race: White Pt. Location: 85 Patient Status: D Ordered Date: 08/02/2018 1:05:00 PM Completed Date: 08/02/2018 01:29 PM Requesting Provider: LUCIANO DAVIS Attending Provider: LUCIANO DAVIS Report Copy To: VENUS JAEGER Signs & Symptoms: Z01.89 Encounter for other specified special examinations I10 History: [place] Comments: , PREOP XRAY AP/LAT \EANDE\ FLEX/EX [...] findings. Electronically signed by:Bella King. Transcribed by: [email or web address], User Resident: KENNETH DUVAL Electronically Signed by: BELLA KING @ 08/03/2018 11:58 AM I personally read this/these film(s) with this resident Normal [facility] Comment on above: Order Comment: , PRE OP XRAY AP/LAT \EANDE\ FLEX/EX , PREOP XRAY AP/LAT \EANDE\ FLEX/EX , , , Ordering Provider - LUCIANO DAVIS MD , PROTHROMBIN TIMEon 8 INR Coag (PPP) [Relative time] 1.15 {INR} Normal 0.91-1.16 [facility] Comment on above: Result Comment: ACCC [...] CHEST 1995;108:[id number]. Performed By: #### 5 7307, 64538 #### [facility] [address] PT Coag (PPP) [Time] 14.7 s Normal 12.3-14.8 [facility] Comment on above: Result Comment: ALL RESULTS MUST BE INTERPRETED WITH RESPECT TO BLOOD DRAWING ARTIFACT OR DILUTION ERROR OF ANTICOAGULANT AT THE TIME OF SAMPLING. Performed By: #### 5 7307, [id number] #### [facility] [address] [place] [address], [facility] TYPE AND SCREENon 08-02-2018 ABO INTERPRETATION A Normal [facility] Comment on above: Order Comment: 2 uni ts 2 units 2 units 2 units 2 units Performed By: #### 6 2586 #### [facility] [address] [place] [address], [facility] RH INTERPRETATION Positive Normal The [facility] Comment on above: Order Comment: 2 uni ts 2 units 2 units 2 units 2 units Performed By: #### 6 2586 #### [facility] [address] [place] [address], [facility] URINALYSIS REFLEXon 08-02-20 18 Appearance (U) CLEAR Normal CLEAR The [facility] Comment on above: Performed By: #### 3 0965 #### [facility] [address] [place] [address], [place] Bilirubin [Mass/Vol] Negative Normal NEGATIVE [facility] Comment on above: Performed By: #### 3 0965 #### [facility] [address] [place] [address], [place] BLOOD Negative Normal NEGATIVE [facility] Comment on above: Performed By: #### 3 0965 #### [facility] [address] [place] [address], [place] Color (U) YELLOW Normal YELLOW [facility] Comment on above: Performed By: #### 3 0965 #### [facility] [address] [place] [address], [place] Glucose [Mass/Vol] 150 mg/dL Abnormal NEGATIVE [facility] Comment on above: Performed By: #### 3 0965 #### [facility] [address] [place] [address], [place] KETONE Negative Normal NEGATIVE [facility] Comment on above: Performed By: #### 3 0965 #### [facility] [address] [place] [address], [facility] [place] Negative Normal NEGATIVE [facility] Comment on above: Performed By: #### 3 0965 #### [facility] [address] [place] [address], [place] MICRO NOT DONE negative chemical reactions unless requested in original order Normal [facility] Comment on above: Performed By: #### 3 0965 #### [facility] [address] [place] [address], [facility] Nitrite Ql (U) Negative Normal NEGATIVE The [facility] Comment on above: Performed By: #### 3 0965 #### [facility] [address] [place] [address], [facility] pH (Bld) 5.0 Normal 5.0-8.0 [facility] Comment on above: Performed By: #### 3 0965 #### [facility] [address] [place] [address], [facility] Protein (U) [Mass/Vol] Negative Normal NEGATIVE [facility] Comment on above: Performed By: #### 3 0965 #### [facility] [address] [place] [address], [facility] SPEC GRAV 1.024 High 1.015-1.020 [facility] Comment on above: Performed By: #### 3 0965 #### [facility] 3000 [facility] [place] [address], [facility] Vital Signs Date Time Vital Sign Value Performing Clinician Facility 04-04-2025 11:03-0400 Body height 188 cm Rubén Geiger MD Work Phone: [facility] 04-04-2025 11:03-0400 Body mass index (BMI) [Ratio] 34.02 kg/m2 Rubén Geiger MD Work Phone: [facility] 04-04-2025 11:03-0400 Body weight 120.2 kg Rubén Geiger MD Work Phone: [facility] 04-04-2025 11:03-0400 Diastolic blood pressure 90 mm[Hg] Rubén Geiger MD Work Phone: [facility] 04-04-2025 11:03-0400 Heart rate 114 /min Rubén Geiger MD Work Phone: [facility] 04-04-2025 11:03-0400 Systolic blood pressure 114 mm[Hg] Rubén Geiger MD Work Phone: [facility] 01-03-2025 14:44-0400 Body height 188 cm Rubén Geiger MD Work Phone: [facility] 01-03-2025 14:44-0400 Body mass index (BMI) [Ratio] 35.31 kg/m2 Rubén Geiger MD Work Phone: [facility] 01-03-2025 14:44-0400 Body weight 124.74 kg Rubén Geiger MD Work Phone: [facility] 07-03-2024 14:45-0400 Body height 188 cm Rubén Geiger MD Work Phone: [facility] 07-03-2024 14:45-0400 Body mass index (BMI) [Ratio] 37.62 kg/m2 Rubén Geiger MD Work Phone: [facility] 07-03-2024 14:45-0400 Body weight 132.9 kg Rubén Geiger MD Work Phone: [facility] 02-25-2022 10:30-0400 Blood Pressure Location Viola Lufrance [facility] 02-25-2022 10:30-0400 Diastolic blood pressure 107 mm[Hg] Viola Lue [facility] 02-25-2022 10:30-0400 Heart rate 74 /min [facility] 02-25-2022 10:30-0400 Respiratory rate 16 /min [facility] Lue [facility] 02-25-2022 10:30-0400 Systolic blood pressure 157 mm[Hg] Viola Lue [facility] Encounters Encounter Date Encounter Type Care Provider Facility Start: 05-29-2025 End: 05-29-2025 Patient encounter procedure Jameel Coats DO -CT Scan [facility] Work Phone: Start: 05-29-2025 End: 05-29-2025 ambulatory Venus Jaeger MD Work Phone: [facility] Work Phone: Start: 05-15-2025 End: 05-16-2025 Corie Miguel NP Work Phone: [facility] Comment on above: Excessive daytime sl eepiness; Primary insomnia Excessive daytime sl eepiness; Obstructive sleep apnea Start: 05-07-2025 End: 05-07-2025 ambulatory Venus Jaeger MD Work Phone: [facility] Work Phone: Start: 05-07-2025 End: 05-07-2025 Patient encounter procedure Jameel Coats DO -[facility] Work Phone: Start: 04-04-2025 End: 04-04-2025 Bamboo flowsheet Rubén Geiger MD Work Phone: [facility] Start: 04-04-2025 End: 04-04-2025 Bamboo flowsheet Rubén Geiger MD Work Phone: [facility] Start: 04-04-2025 End: 04-04-2025 Office outpatient visit 25 minutes Rubén Geiger MD Work Phone: [facility] Comment on above: Narcolepsy cataplexy syndrome (HCC) (Primary Dx); Excessive daytime sleepiness; Cervical disc disorder; Intractable chronic migraine with aura with status migrainosus Start: 04-04-2025 End: 04-04-2025 ambulatory RUBÉN GEIGER Not Available Start: 03-05-2025 End: 03-06-2025 Clinisync Result Encounter Jess HOYOS Work Phone: [facility] External Department Unsolicited Start: 03-05-2025 End: 03-06-2025 Clinisync Result Encounter Jess HOYOS Work Phone: [facility] External Department Unsolicited Start: 01-03-2025 End: 01-03-2025 Office outpatient visit 25 minutes Rubén Geiger MD Work Phone: [facility] Comment on above: Primary narcolepsy w ith cataplexy (CMS/HCC) (Primary Dx); Excessive daytime sleepiness; Obstructive sleep apnea Start: 01-03-2025 End: 01-03-2025 ambulatory RUBÉN GEIGER Not Available Start: 01-03-2025 End: 01-03-2025 Bamboo flowsheet Rubén Geiger MD Work Phone: [facility] Start: 01-03-2025 End: 01-03-2025 Bamboo flowsheet Rubén Geiger MD Work Phone: [facility] Start: 12-11-2024 End: 12-11-2024 ambulatory RUBÉN GEIGER Not Available Start: 12-11-2024 End: 12-11-2024 Office outpatient visit 25 minutes Rubén Geiger MD Work Phone: [facility] Comment on above: 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); Cervical paraspinal muscle spasm; Degeneration of intervertebral disc of lumbosacral region with discogenic back pain and lower extremity pain; Narcolepsy cataplexy syndrome (CMS/HCC) Start: 11-14-2024 End: 11-14-2024 Telephone encounter Liz Israel Other Phone: [facility] Start: 10-12-2024 End: 10-12-2024 Telephone encounter Heather Miguel MANAGER BUSINESS INFORMATION Work Phone: [facility] 210 Start: 10-08-2024 Evaluation and manag ement of inpatient LEONIE BETHFORD [facility] Start: 10-08-2024 End: 10-11-2024 Evaluation and management of inpatient ARMANDO BERG [facility] Start: 10-02-2024 End: 10-02-2024 Refill Marianna Sheehan LPN [facility] 210 Comment on above: Excessive daytime sl eepiness; Obstructive sleep apnea Start: 09-28-2024 Evaluation and manag ement of inpatient MARIANNA SUAREZ [facility] Start: 09-25-2024 Evaluation and manag ement of inpatient MARILOU TOMLIN [facility] Start: 09-25-2024 Evaluation and manag ement of inpatient [facility] Start: 09-24-2024 Evaluation and manag ement of inpatient [facility] Start: 09-24-2024 Evaluation and manag ement of inpatient SANDRINE HAHN [facility] Start: 09-24-2024 Evaluation and manag ement of inpatient [facility] Start: 09-23-2024 Emergency department patient visit [facility] Start: 09-23-2024 Emergency department patient visit [facility] Start: 09-23-2024 Emergency department patient visit [facility] Start: 09-23-2024 End: 09-28-2024 Evaluation and management of inpatient SERA WAYNE [facility] Start: 09-21-2024 End: 09-21-2024 [facility] Work Phone: Start: 09-21-2024 End: 09-21-2024 Departed Referred Trey Vallejo DPM Work Phone: [facility] Start: [...] NEUR Comment on above: Primary insomnia Start: 01-03-2024 End: 01-03-2024 ambulatory DPM Trey Vallejo Work Phone: [facility] Work Phone: Start: 01-03-2024 End: 01-03-2024 Departed Referred DPM Trey Vallejo Work Phone: [facility] Start: 11-29-2023 End: 11-30-2023 ambulatory Diallo Beauchamp MD Facility:[facility] Start: 10-18-2023 End: 10-19-2023 ambulatory Diallo Beauchamp MD Facility:[facility] Start: 08-30-2023 End: 08-31-2023 ambulatory Diallo Beauchamp MD Facility:[facility] Start: 07-12-2023 End: 07-13-2023 ambulatory Diallo Beauchamp MD Facility:[facility] Start: 06-14-2023 End: 06-15-2023 ambulatory Diallo Beauchamp MD Facility:[facility] Start: 12-06-2022 End: 12-06-[address] VENUS JAEGER . Facility:[facility] Start: 12-05-2022 Encounter for genera l adult medical examination without abnormal findings DR VENUS JAEGER . [facility] Start: 12-01-2022 End: 12-02-[address] [...] encounter procedure Viola Grullon [facility] Start: 01-04-2022 End: 01-05-[address] VENUS JAEGER . Facility: Start: 01-30-2019 End: 02-01-2019 Evaluation and management of inpatient PROVIDER UNKNOWN Facility:[facility] Start: 08-17-2018 End: 08-18-2018 Patient encounter procedure PROVIDER UNKNOWN Facility:[facility] Procedures Date Procedure Procedure Detail Performing Clinician Start: 05-29-2025 CT of lower leg with out contrast Venus Jaeger MD Work Phone: Start: 03-05-2025 ECG 12-LEAD Jess HOYOS Work Phone: Start: 12-01-[address] FRANKLIN JAEGER . Comment on above: Performed By: #### P [facility] #### [facility] [address] [place] [address] [address] Shabnam Rae Start: 01-30-2019 FUSION CERV JT W INT BD FUS DEV, ANT APPR A COL, OPEN [facility] Start: 01-30-2019 REMOVAL OF INT FIX F ROM CERVCAL VERTEBRA, OPEN APPROACH [facility] Start: 01-23-2019 Antibody screen PROVIDE R UNKNOWN Comment on above: Performed By: #### 5 [id number], [id number] #### [facility] [address] Start: 08-17-2018 ANESTH SPINE CORD SURGERY [...] units Performed By: #### 6 2586 #### [facility] [address] Start: 02-08-1998 H/O: vasectomy History of vasectomy Rubén Geiger MD Work Phone: Colonoscopy Viola Grullon Hemorrhoids (disorder) Viola Grullon Hernia of abdominal cavity (disorder) Viola Grullon Tonsillectomy Viola Grullon Plan of Treatment Date Care Activity Detail Author Start: 06-27-2025 End: 06-27-2025 Patient encounter procedure [facility] Start: 05-14-2025 Influenza vaccination Influenza Vacc ine (#1) [facility] Start: 04-04-2025 End: 04-04-2025 Patient encounter procedure [facility] Comment on above: Arrived Start: 01-03-2025 End: 01-03-2025 Patient encounter procedure [facility] Comment on above: Arrived Start: 10-04-2024 End: 10-04-2024 Patient encounter procedure 10/04/2024 2:20 PM EST Office Visit [facility] [address] [place] [address] Rubén Geiger MD [address] [facility] [address] [address] [facility] Start: 09-21-2024 Superficial Wound Culture Superficial Wound Culture [facility] Start: 07-03-2024 End: 07-03-2024 Patient encounter procedure [facility] Comment on above: Arrived Start: 05-14-2024 Influenza vaccination Influenza Vacc ine (#1) [facility] Start: 1970 Screening for malign ant neoplasm of colon [facility] Bacteria identified in Unspecified specimen by Aerobe culture [facility] CT Lower leg - right W contrast IV [facility] XR Tibia and Fibula - right 2 Views [facility] Immunizations Immunization Date Immunization Notes Care Provider Fa cility 07-07-2024 influenza virus vacc ine, unspecified formulation Rubén Geiger MD Work Phone: [facility] 07-06-2023 influenza virus vacc ine, unspecified formulation Rubén Geiger MD Work Phone: [facility] Payers Date Payer Category Payer Self-pay [id number] 2022 Medicaid [id number] 2022 Medicaid [id number] 2022 Unknown 1970 Unknown [id number] 2.16.8 40.1.550192.3.579.2.647 1970 Unknown [id number] 2.16.8 40.1.628884.3.579.2.647 1970 Unknown [id number] 2.16.84 0.1.922335.3.579.2.593 1969 Unknown [id number] 2.16.84 0.1.972901.3.579.2.593 1969 Unknown [id number] 2.16.84 0.1.665826.3.579.2.593 1969 Unknown [id number] 2.16.84 0.1.776286.3.579.2.593 1969 Unknown [id number] 2.16.84 0.1.950666.3.579.2.593 1969 Unknown [id number] 2.16.84 0.1.137766.3.579.2.593 1969 Unknown [id number] 2.16. 840.1.583730.3.579.2.196 1969 Unknown [id number] 2.16. 840.1.463357.3.579.2.196 1969 Unknown [id number] 2.16. 840.1.770624.3.579.2.196 1969 Unknown [id number] 2.16. 840.1.742229.3.579.2.196 1969 Unknown [id number] 2.16. 840.1.472910.3.579.2.196 1969 Unknown [id number] 2.16.8 40.1.439032.3.579.2.1259 1969 Unknown [id number] 2.16.84 0.1.440700.3.579.2.1259 1969 Unknown [id number] 2.16.84 0.1.789114.3.579.2.1259 1969 Unknown [id number] 2.16.84 0.1.943976.3.579.2.1259 1959 Unknown [id number] Unknown [id number] Unknown [id number] 2.16.8 40.1.640805.3.579.2.531 Unknown [id number] 2.16.8 40.1.781610.3.579.2.531 Social History Date Type Detail Facility Tobacco smoking status No Smokin g Status Entered [facility] Start: 03-27-2024 End: 07-03-2024 Sex Assigned At Male [facility] Start: 05-15-2018 End: 05-15-2018 Tobacco smoking status NEIS Ex-smoker (finding) [facility] Start: 1970 Sex Assigned At Male [facility] Start: 03-11-2023 [facility] Start: 03-11-2023 Tobacco use and exposure Smokeless tobacco non-user [facility] Start: 03-27-2024 End: 07-03-2024 Alcoholic beverage intake Ex-drinker (finding) [facility] Start: 03-27-2024 End: 07-03-2024 History of Social function [facility] Start: 1970 Sex assigned at Not on file [facility] Start: 09-22-2024 Sex Male (finding) [facility] Functional Status Date Assessment Result Facility 02-25-2022 Functional Status N/A [facility] Clinical Notes 02-25-2022 to 05-29-2025 Telephone Encounter - Heather Miguel NP - 05/16/2025 8:45 AM EDTTelephone Encounter - Heather Miguel NP - 05/16/2025 8:45 AM EDT Note Date & Type Note Facility 05-29-2025 Radiology Diagnostic study note [facility] Main [address] Scan Report Signed Patient: Matty Garces MR#: [id number] : 1970 Acct:[id number] Age/Sex: 54 / M ADM Date: 5 Loc: CT Room: Type: [facility] Attending Dr: Jameel Coats DO Copies to: Jameel Coats DO~ Ordering Provider: Jameel Coats DO Date of Service: 05/29/25 CT/CT lower leg RT wo con: S82.201A - Unspecified fracture of shaft of right tibia, ... CT lower leg RT wo con 05/29/2025 3:56 PM SIGNS AND SYMPTOMS: Nonhealing fracture TECHNIQUE: Multidetector CT axial slices of the left tibia and fibula without IVcontrast. Multiplanar and 3-D reformats were performed and viewed on a separate workstation and reviewed to further define anatomy and possible pathology. CT was performed with one or more of the following dose reduction techniques: Automated exposure control, adjustment of the mA and/or kV according to patient size, or use of iterative reconstruction technique. COMPARISON: 05/07/2025 and 04/10/2025 FINDINGS: There is evidence of previous intramedullary fixation of a distal tibial shaft fracture. The fracture line is incompletely healed. The hardware is grossly intact. There is lucency surrounding the intramedullary wendy along the distal aspect of the fracture hardware loosening. There is no change in alignment. Oblique fracture lines are noted in the mid shaft with evidence of incomplete healing. There is an incompletely healed fracture of the distal shaft of the fibula. Diffuse soft tissue swelling is noted from the knee to the ankle. Periarticular osteopenia is noted at the tibiotalar junction, at the calcaneocuboid junction, at the talonavicular junction, and throughout the cuneiforms. This may represent osteopenia secondary to disuse. Additionally this may represent sequelae of chronic regional pain syndrome. CT/CT lower leg RT wo con IMPRESSION: There is lucency surrounding the intramedullary wendy along the distal aspect of the fracture hardware loosening. There is no change in alignment. There is an incompletely healed fracture of the distal tibia. Oblique fracture lines are noted in the mid shaft with evidence of incomplete healing. There is an incompletely healed fracture of the distal shaft of the fibula. Periarticular osteopenia is noted at the tibiotalar junction, at the calcaneocuboid junction, at the talonavicular junction, and throughout the cuneiforms. This may represent osteopenia secondary to disuse. Additionally this may represent sequelae of chronic regional pain syndrome. Impression dictated by: Francis Irving M.D. 05/29/2025 11:40 PM Dictation Location: [facility]17 Transcribed By: [facility] 05/29/25 234 Dictated By: Francis Irving II, MD 05/29/25 232 Signed By: 05/29/252339 [facility] Work Phone: 05-16-2025 Telephone encounter Note OARRS reviewed [facility] 05-16-2025 Miscellaneous Notes OARRS reviewed documented in this encounter [facility] 05-07-2025 Evaluation note Diagnosis Onset Date Resolution Hypertrophy of bone of lower leg noneactive May 07 11:21am Fracture of right tibia and fibula noneactive May 07 11:21am Right leg pain noneactive April 11:21am [facility] Work Phone: 1(738) 267-249207-23-2025 History of Present illness Narrative* Rubén Geiger MD - 04/04/2025 11:20 AM EDT Images from the original note were not included. Subjective Matty Garces is a 54 y.o. male [...] in all four extremities, including at least metal forger's assistant, finger abductors, biceps, triceps, deltoid, toe flexors [...] refill for Xywav will be sent to [facility]. If symptomspersist or worsen, further [...] up in 3 months. documented in this [facility]04-23-2025 History of Present illness Narrative* Rubén Geiger MD - 01/03/2025 2:40 PM EDT Images from the original note were [...] dose then he will get 3-4 hours asleep. Patient states that when he only takes [...] shift . States that sleeping in shifts doesbetter for him. CHIEF COMPLAINT REASON FOR VISIT [...] 1 mg, Oral, 2 times daily HYDROcodone-acetaminophen (Friedens) 5-325 MG tablet hydrOXYzine pamoate (Vistaril) 25 [...] Wan ULNAR NERVE TRANSPOSITION Left 2014 UVULOPALATOPHARYNGOPLASTY Procedure:U.P.P.P.;Disease:Tracheal stenosis Social History Tobacco Use Smoking status: [...] in all four extremities, including at least metal forger's assistant, finger abductors, biceps, triceps, deltoid, toe flexors [...] Increase Xywav to 6mg documented in this encounterFulton State [id number] History of Present illness Narrative* Rubén Geiger MD - 12/11/2024 4:10 PM EDT Images from the original note were [...] 1 mg, Oral, 2 times daily HYDROcodone-acetaminophen (Friedens) 5-325 MG tablet hydrOXYzine pamoate (Vistaril) 25 [...] Wan ULNAR NERVE TRANSPOSITION Left 2014 UVULOPALATOPHARYNGOPLASTY Procedure:U.P.P.P.;Disease:Tracheal stenosis Social History Tobacco Use Smoking status: [...] in all four extremities, including at least metal forger's assistant, finger abductors, biceps, triceps, deltoid, toe flexors [...] intracranial or extracranial stenosis. documented in this [facility]03-04-2025 Telephone encounter Note* Telephone Encounter - Isabella Manzano - 11/14/2024 9:49 AM EST Pt called for refill on Zofran. [facility] Work Phone: [phone]) [phone] Miscellaneous Notes* Telephone Encounter - Isabella Manzano - 11/14/2024 9:49 AM EST Pt called for refill on Zofran. documented in this [facility]01-30-2025 Telephone encounter Note* Telephone Encounter - Heather Miguel NP - 10/12/2024 7:20 PM EST Did we send in Xywav REMS form for this patient? [facility] calls that the form we sent in had white out on the titration section on the form. They need new form without white out on it? I do notsee anything in media sent and if I search patient chat. [facility] [id number] Miscellaneous Notes* Telephone Encounter - Heather Miguel NP - 10/12/2024 7:20 PM EST Did we send in Xywav REM[facility] form for this patient[facility] we sent in had white out on the titration section on the form. They need new form without white out on it? I do notsee anything in media sent and if I search patient chat. documented in this encounterFulton State [id number] NoteOccupational Therapy Occupational Therapy Treatment Note Patient Name: [...] going to put in a elba toilet. (Unload Associate suggesting a RTS or to have son put in toilet however, pt stated that he will replace the toilet himself) Objective 1 Pt was up in chair at EOS with on her way. Objective 2 Unload Associate provided education on home and bathroom safety. [...] endurance, Decreased functional mobility, Decreased IADLs OT Assessment/RADIOLOGY MANAGER Summary: Pt is progressing toward goals but [...] A Little (Min Henri[place] (more content not included)...[facility] 10-11-2024 NoteHospital Medicine Discharge Summary Final Discharge Diagnosis: Left leg cellulitis Open wound of left great toe HTN Anxiety disorder Chronic combined systolic and diastolic Congestive heart failure, NYHA II Closed fracture of right fibula and tibia Admission Diagnosis: Left leg cellulitis [L03.116] Cellulitis of right lower extremity [L03.115] Cellulitis of left leg [L03.116] Hospital course: 54-year-old male who came from [facility] due to left lower extremity cellulitis. [...] Provider Department Center 10/26/2024 2:50 PM Sandrine aHhn MD MP ORTHO MPORTHO Your medication list [...] Medications These medications were sent to [facility] - [place], [place] - [address] [place] [address] [place] [address], [facility] [address] Phone (more content not included)...[facility] 10-11-2024 NotePharmacy Dosing Service - Vancomycin Follow Up Note Drug: Vancomycin [...] or questions Thank you, Sudha Camacho, PharmD, 10/11/24[facility]01-29-2025 Note Attestation signed by Sandrine Hahn MD [...] with any concerns via the Orthopaedic pager ([phone]) at any time. Jazzmine Casanova MD Orthopedic Surgery Resident, PGY 1[facility]01-28-2025 NoteHospital Medicine Daily Progress Note - 10/10/2024 6:40 PM; Room: [address] [place] [address] Admission: 10/08/2024 5:47 AM; Length of stay: 2 days THE HOSPITALIST TEAM PREFERS TO USE Taxizu CHAT FOR NON-URGENT COMMUNICATION 7AM-7PM. IF I DO NOT RESPOND WITHIN 20 MINUTES OR URGENT MATTERS, PLEASE CALL THROUGH THE CHIP MIXING MACHINE OPERATOR. FROM 7PM-7AM, PLEASE PAGE [phone](COVR). Code Status: Full Code Barriers to Discharge: [...] , FREET4 , CORTISOL , FEV1 , PWQ2QKN , DLCO , RVSP , HDL , LDL No results found for: [id number] , IRON , TIBC , C3 , [...] Discharge Planning Expected Discharge Disposition: Home-Health Care Svc (06) PT (more content not included)...[facility]01-28-2025 [facility]ATION Reason for [...] Patient reports that he has followed with lining cutter in [place] for many years for treatment of his left great toe DFU. States that is chronic and has been minimal healing progress until recently. Patient states he would like to resume care with this lining cutter at discharge. He has not been able to see lining cutter since previous discharge due to scheduling issues. [...] on file Occupational Histor (more content not included)...[facility]01-28-2025 NotePhysical Therapy Physical Therapy Treatment Patient Name: Matty [...] rotates and ocassional does not stay within WILFRDEO of RW, reports wt bearing ~20% into [...] Stand Technique 1 S (more content not included)...[facility] 10-10-2024 Note. Pharmacy Dosing Service - Vancomycin Daily IVent [...] days. -Check BUN/SCr daily Altaf Martin, PharmD, 10/09/24[facility]01-27-2025 Note Occupational Therapy Occupational Therapy Evaluation Patient Name: Matty Garces : 1970 Today's Date: 10/09/2024 Time in:1504 Time out: 1526 Present Illness History: 54 y/o M presented from [facility] with R LE cellulitis. Patient [...] Level of Function Prior Function Level of [place]: Independent with ADLs and functional transfers, Independent [...] mobility, transfers and fu (more content not included)...[facility]01-27-2025 Note10/09/24 0909 Admission Assessment Questions Verify insurance with [...] Status Interested Does the patient have a medical case worker assigned to them through their insurance? No Living Arrangement (Current/Prior to Hospitalization) Private residence (lives with ) Does the patient have history of HHC or SNF? Yes (Active with [facility]) Assistive Device Wheelchair;Bedside Commode;Walker Patient's goal for discharge Home with HHC Was patient reminded that goal for discharge is 11am? No Does the patient have transportation at discharge? Yes Type of Residence Private residence;Home care staff Is PT/OT appropriate? Yes Is PT/OT ordered? Yes Is SW consult appropriate? Yes Is SW consult ordered? Yes Do you understand the benefits of MyChart? Yes Were you able to send link and activate MyChart? [facility]01-27-2025 NoteHospital Medicine Daily Progress Note - 10/09/2024 12:13 PM; Room: [address] [place] [address] Admission: 10/08/2024 5:47 AM; Length of stay: 1 days THE HOSPITALIST TEAM PREFERS TO USE Offerboard FOR NON-URGENT COMMUNICATION 7AM-7PM. IF I DO NOT RESPOND WITHIN 20 MINUTES OR URGENT MATTERS, PLEASE CALL THROUGH THE CHIP MIXING MACHINE OPERATOR. FROM 7PM-7AM, PLEASE PAGE [phone](COVR). Code Status: Full Code Barriers to Discharge: [...] , FREET4 , CORTISOL , FEV1 , EOS6AKL , DLCO , RVSP , HDL , LDL No results found for: [id number] , IRON , TIBC , C3 , [...] Discharge Disposition: Home-Health Care c (06) PT Discharge Recommendations: Home PT Signed C (more content not included)...[facility]01-27-2025 NotePhysical Therapy Physical Therapy Re-Evaluation Patient Name: Matty Garces : 1970 Today's Date: 10/09/2024 General Subjective: Attempted to see pt earlier today ([id number]) for mobility assessment. Pt deferred d/t pain [...] Exercise Therapeutic Exercise Therape (more content not included)...[facility] 10-09-2024 Note. Pharmacy Dosing Service - Vancomycin Daily IVent [...] steady state -Check BUN/SCr daily Altaf Martin, ErinD, 10/09/24[facility]01-27-2025 Note Orthopaedic Surgery Orthopaedic Surgery Progress Note [...] hardware fixation tibia fracture. Electronically signed: Scott Bello No CT results found for the past [...] Rivas MD Orthopaedic Surgery, PGY-2 Ortho Pager [phone] 10/09/24 6:38 AM I am available via gantto 6a-6p. May contact the on-call resident with any concerns via the Orthopaedic pager at any time.[facility]01-26-2025 NoteCase was discussed with the AYAKA on 10/08/2024. I agree with the history, physical, assessment, and plan of care. I discussed the findings and therapeutic plan. I agree with the documentation, except for any updates below. Fabiola Wade, [facility]01-26-2025 NotePhysical Therapy Evaluation Patient Name: Matty Garces Today's Date: 10/08/2024 Admit Date: 10/08/2024 Time In: 1:20pm Time Out: 1:45pm Cumulative minutes: 25 minutes Billed minutes: 25 minutes; 15 min eval; 10 min therapeutic exercise to review HEP x10 reps. History of present illness Per H&P: Matty Garces is an 54 y.o. male who came from [facility] with LLE cellulitis. Patient has PMH of hypertension, diastolic heart failure, GERD, anxiety. He recently was admitted here and had right leg tib/fib fracture and seen by our ortho team and had closed insertion with intramedullary wendy on 09/24/24 and was discharged home. He reports he went to [place] ER due to increased pain, swelling and [...] patient refused this stating he already has HHC set up and wants to go home. Vascular surgery was consulted for a chronic left foot ulcer. Pulmonary navigator was consulted for PATEL and recommended OP sleep study. On day of discharge, Trauma team was informed at approximately 1730 per [facility] that patient went into a-flutter and sustained for approximately 2 hours from approximately 2550-7231. Trauma team ordered a STAT ECG and [...] WB status. Objective assessment (more content not included)...[facility] [id number] NotePharmacy Dosing Service - Vancomycin Initial Consult Note Pharmacy has been consulted for the dosing and evaluation of Drug: Vancomycin Indication: complicated skin and soft tissue infection AUC 400-600 mg*hr/L and trough 10-20 mcg/mL Other Antimicrobial Regimens: cefepime Labs and Renal Function Total body weight: 134 kg (295 lb) [place] body weight: 82.2 kg (181 lb 3.5 [...] Comments: - 54 year old male from [place] with LLE cellulitis -Had intramedullary wendy placed [...] or questions Thank you, Altaf Martin, PharmD, 10/08/24[facility]01-26-2025 Note Will consult wound careUn[facility]01-26-2025 Note Continue vanco and zosyn Ortho following Will get blood culturesUnFlower [facility]01-26-2025 Note Continue citalopram, clonazepamUnFlower Hospital01-26-2025 NoteContinue modafinil, coregUnFlower Hospital01-26-2025 Note Not in exacerbation Continue furosemide, coreg, asaUnFlower Hospital01-26-2025 NoteOrtho following, concern for possible infection Admit to med surg Activity orders per ortho with LLE Cardiac diet Will get labs this morning and follow up on results Daily bmp and cbc to monitor kidney function, electrolytes, hgb and wbc Case will be discussed with attending physicianUnFlower Hospital01-26-2025 NoteHospital Medicine History and Physical 10/08/2024 7:26 AM THE HOSPITALIST TEAM PREFERS TO USE Taxizu CHAT FOR NON-URGENT COMMUNICATION 7AM-7PM. IF I DO NOT RESPOND WITHIN 20 MINUTES OR URGENT MATTERS, PLEASE CALL THROUGH THE CHIP MIXING MACHINE OPERATOR. FROM 7PM-7AM, PLEASE PAGE [phone](COVR). Chief Complaint Chief Complaint Patient presents with Cellulitis History of Present Illness Matty Garces is an 54 y.o. male who came from [facility] with LLE cellulitis. Patient has PMH of hypertension, diastolic heart failure, GERD, anxiety. He recently was admitted here and had right leg tib/fib fracture and seen by our ortho team and had closed insertion with intramedullary wendy on 09/24/24 and was discharged home. He reports he went to [place] ER due to increased pain, swelling and [...] this hospital stay by a member of [facility]. Past Medical History Past Medical [...] Insecurity: No Food Insecurity (more content not included)...[facility]01-20-2025 Telephone encounter Note* Telephone Encounter - Marianna Sheehan LPN - 10/02/2024 2:19 PM EST Provigil refill request to [facility] sent to provider. Last appt. 07/03/24 [facility] [id number] Miscellaneous Notes* Telephone Encounter - Marianna Sheehan LPN - 10/02/2024 2:19 PM EST Provigil refill request to [facility] sent to provider. Last appt. 07/03/24 documented in this encounterFulton State [id number] NoteTrauma team informed at approximately 1730 per [facility] that patient went into a-flutter and sustained for approximately 2 hours from approximately 9238-5507. Trauma team ordered a STAT ECG and [...] tonight, AMA AMA paperwork reviewed and signed [facility]01-16-2025 Note09/28/24 1537 Home Oxygen Therapy Evaluation Pulse Oximetry on room air at Rest 94 Pulse Ox on room air while walking 96 Patient Qualification for home oxygen Does not qualify for home oxygen this visit (When pt is sleeping, apnea is noted and at times saturation drops but when pt is awake and moving his oxygenation is stable)[facility]01-16-2025 NoteUnDunlap [facility] Hospital Trauma Surgery Progress Note Subjective Patient [...] kg (296 lb 15.4 oz) (09/28 035) [place] Coma Scale Score: 15 FiO2 (%): [50 [...] Value Ventricular Rate 82 Atrial Rate 82 DC Interval 164 QRS DURATION 92 QT Interval 386 QTC CALCULATION(BAZETT) 450 P [place] 61 R-[place] 18 T Wave [place] 69 Impression Normal sinus rhythm Normal ECG [...] C, PT/OT recommending walker, commode, and rolling wheelchair.[facility]01-16-2025 Note Physical Therapy Physical Therapy Treatment Patient [...] EOB, commode, and recliner (more content not included)...[facility]01-16-2025 NoteOccupational Therapy Occupational Therapy Treatment Patient Name: Matty [...] apnea) Gastroesophageal reflux disease Obese Co-tx with BANKRUPTCY [place] to facilitate purposeful activity, 2/2 high fall risk, impaired dyn standing balance & act tolerance, poor safety awareness, & poor safety awareness with STS, transfers, & functional ambulation; To maintain safety of patient & staff. 09/28/24 1358 OT Last Visit OT Received On 09/28/24 General Subjective I got my w/c 3rd hand...from my hrvept-dz-njs. Treatment Duration (min) 55 Minutes Response to [...] not maintain precs. General Assessment Hearing mild [place] Skin Integrity ALVARO wrap to RLE, DFU to L great toe Grooming Grooming Level of Assistance Setup Grooming Where Assessed Other (Comment) (sitting on [facility]) Grooming Comments to complete facial care & oral care with cues for continuation, 2/2 perseverance. UE Bathing UE Bathing Level of Assistance Setup UE Bathing Where Assessed Other (Comment) ([facility]) UE Bathing Comments to complete 100% UBB sitting on [facility]. Cues for continuation, 2/2 perseveration. LE Bathing LE Bathing Level of Assistance Contact guard LE Bathing Where Assessed Other (Comment) ([facility]) LE Bathing Comments BLEs bathed sitting on BS; Pt stood with device for mary lou-hygiene & required CGA to maintain balance. UE Dressing UE Dressing Level of Assistance Setup UE Dressing Where Assessed Sitting in chair UE Dressing Comments to don gown Toileting Toileting Level of Assistance Contact guard Where Assessed Bedside commode Toileting Comments CGA during mary lou-care post BM, standing at [facility]. Unsteadiness present. Static Sitting Balance Static Sitting-Balance Support Feet supported Static Sitting-Level of Assistance Distant supervision Static Sitting-Comment/Number of Minutes Supervision for safety Dynamic Sitting Balance Dynamic Sitting-Balance Support Feet supported;Unilateral upper extremity supported Dynamic Sitting Balance-Level of Assistance Close supervision Dynamic Sitting-Comments SBA for safety scooting EOB, positioning on [facility] Static Standing Balance Static Standing-Balance Support With [...] mary lou-care & hygiene in stance at [facility] with RW. Add'l SBA for safety. Pt very unsteady with poor awareness. CGA during functional ambulation with device. Cues for safety awareness, & maintaining WB precs. Bed Mobility 1 Bed Mobility From 1 Supine Bed Mobility Type 1 To Bed Mobility to 1 Short sit Level of Assistance 1 Close superv (more content not included)...[facility]01-16-2025 NoteCalThinkature by phone to check on status of pt's DME (wheelchair, walker, bedside commode). Was advised they did not receive it via [employer] and would need it direct faxed to [phone]. Faxed referral and was advised they will [...] to call . UPDATE 3:05PM- Spoke with [facility] again and was advised the wheelchair could [...] discharge around 6pm tonight. Also spoke with [facility] and was provided w/ fax [phone] to send AVS once ready. UPDATE 4:05PM- Direct faxed final AVS to [facility]01-16-2025 [facility]UnDunlap [facility] Hospital Vascular and Wound Surgery DAILY PROGRESS [...] days Lab Units 09/28/24 0358 09/27/24 0351 09/26/2444609/25/247 09/24/24 0355 WBC AUTO 10*3/uL 10.65* 10.21 9.63 14.37* 7.56 HEMOGLOBIN g/dL 13.7 14.0 13.6 14.1 14.1 HEMATOCRIT % 44.4 45.5 43.8 45.4 46.4 PLATELETS AUTO 10*3/uL 208 199 186 205 175 Results from last 7 days Lab Units 09/28/24 0358 09/27/24 0351 09/26/2444609/25/247 09/24/24 0355 SODIUM mmol/L 135* 137 139 [...] BID simvastatin, 20 mg, oral, Nightly Imaging: [facility] Carotid Artery Duplex Bilateral [...] 2. Unchanged cardiomediastinal silho (more content not included)...[facility]01-15-2025 NoteDischarge Planning: Home with [facility] The patient was accepted by [facility]. DME referral sent to [facility]. The patient would like the DME either delivered to the hospital or his home prior to discharge.[facility]01-15-2025 Note Occupational Therapy Occupational Therapy Treatment Patient Name: Matty Garces : 1970 Today's Date: 09/27/2024 Time in:1357 Time out:1450 Total time:53 minutes,23 min OT, additional for BANKRUPTCY [place] provided to maximize safety as progressed [...] precautions etc Transfers 2 (more content not included)...[facility]01-15-2025 Note Physical Therapy Physical Therapy Treatment Patient [...] 1 for lift, balance, (more content not included)...[facility]01-15-2025 Note Attestation signed by Fahad Rizzo MD at 09/28/2024 7:41 AM Patient seen and examined with trauma team [facility] Trauma Surgery Progress Note Subjective Patient was [...] Value Ventricular Rate 82 Atrial Rate 82 DC Interval 164 QRS DURATION 92 QT Interval 386 QTC CALCULATION(BAZETT) 450 P [place] 61 R-L[place] 18 T Wave [place] 69 Impression Normal sinus rhythm Normal ECG [...] for acute findings. Respiratory: (more content not included)...[facility] 09-26-2024 NotePer patients patient was to start with Radha Mendenhall [facility] on the day of admit. Referral made as requested. SW following.[facility]01-14-2025 NoteUnDunlap [facility] Vascular and Wound Surgery DAILY PROGRESS NOTE Subjective Patient seen and examined at bedside. No acute events overnight. Vital signs stable. Denies pain to the left ulcer. Patient states he follows regularly with lining cutter at [facility] and plans to follow-up with [...] from last 7 days Lab Units 09/26/2444609/25/247 09/24/2435409/23/24 1212 WBC AUTO 10*3/uL 9.63 14.37* 7.56 10.56 HEMOGLOBIN g/dL 13.6 14.1 14.1 14.5 HEMATOCRIT % 43.8 45.4 46.4 47.8 PLATELETS AUTO 10*3/uL 186 205 175 188 Results from last 7 days Lab Units 09/26/2444609/25/24 0407 09/24/24 0355 09/23/24 1403 SODIUM mmol/L [...] BID simvastatin, 20 mg, oral, Nightly Imaging: [facility] Carotid Artery Duplex Bilateral [...] Increased oxygen requirements. COMPARISON: (more content not included)...[facility] 09-26-2024 NoteOccupational Therapy Occupational Therapy Treatment Note Patient Name: [...] on with B LE's elevated Objective 2 Unload Associate discussed importance of discharging to facility for continued therapy prior to going home however, pt declines. Pt transfers are currently unsafe with jingle writer questioning ability to maintain WB status. [...] Other Pt is impulsive during standing/transfer activities. Unload Associate questions pts safety while at home. General [...] endurance, Decreased functional mobility, Decreased IADLs OT Assessment/RADIOLOGY MANAGER Summary: Pt would benefit from continued therapy [...] training, Endurance training, Patient/f (more content not included)...[facility]01-14-2025 NoteOrthopaedic Surgery Orthopaedic Surgery Progress Note Date: 09/26/2024 [...] Can be reached at the orthopedic pager: [phone] Luis Felipe Rivas MD 09/26/24 7:24 AM Ortho Pager: [phone]01-14-2025 Note [facility] Trauma Surgery Progress Note Subjective Subjective: Patient [...] ???F) (09/25 2014) Temp Source: Oral (09/25 1600) Heart Rate: [61-95] 87 (09/26 399) Resp: [13-25] 18 (09/26 399) SpO2: [86 %-98 %] 96 % (09/26 0400) Height: -- Weight: [138 kg (303 lb 9.2 oz)] 138 kg (303 lb 9.2 oz) (09/26 0433) [place] Coma Scale Score: 15 Intake/Output Summary (Last [...] Value Ventricular Rate 82 Atrial Rate 82 DC Interval 164 QRS DURATION 92 QT Interval 386 QTC CALCULATION(BAZETT) 450 P [place] 61 R-[place] 18 T Wave [place] 69 Impression Normal sinus rhythm Normal ECG [...] Syncopal workup -Telemetry monitori (more content not included)...[facility]01-13-2025 NotePt was seen early this morning about wearing BiPap for possible sleep apnea due to periods of apnea and decreased oxygen saturation overnight. Pt refused BiPap, stating he has tried it before and it gives him migraines. 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 Referral Reason Follow up;Information Patient Information Primary Caregiver Spouse Activities of Daily Living Assistive Device Walker;Wheelchair Behavior Oriented Communication Talks;Understands speaking Discharge Planning Living Arrangements Spouse/significant other Support Systems Spouse/significant other Type of Residence Private residence;[facility] (await name of agency from ) Post Acute Services In home services (agreeable to [facility]) Type of Home Care Services (Current) Skilled Home Servicies;Home OT;Home PT ([facility] was just going to start services before admit) Patient's goal for discharge home with [facility] Does the patient need discharge transport arranged? No () Screened by [facility]. Pt declines SNF placement and is agreeable to take pt home with [facility]. Await name of [facility] agency that was approved to start services. Pt will likely need RT for home O2. Will follow up with pt's for [facility] agency. thinks [facility] agency is [facility] or [facility]. SW will follow with referrals.[facility]01-13-2025 Note09/25/24 1332 Admission Assessment Questions Verify insurance with [...] Status Interested Does the patient have a medical case worker assigned to them through their insurance? No Living Arrangement (Current/Prior to Hospitalization) Private residence;Home self care Does the patient have history of HHC or SNF? Yes (pt could not remember the [facility] agency name, neither could ) Assistive Device [...] Assessment completed with , patient deferred to .[facility]01-13-2025 NoteThe findings from this face to face encounter indicate the reason this patient requires a bedside commode. Patient is physically incapable of using regular toilet facilities. Patient is confined to 1 level of the home with no toilet on that level Marilou Tomlin APRNFRAMINGHAM UN[facility] Department of Surgery - Trauma [phone]01-13-2025 NoteThe findings from this face to face encounter indicate the reason [...] is provided in the home Marilou Tomlin APRN-[facility] Department of Surgery - Trauma [phone]01-13-2025 NoteThe findings from this face to face encounter indicate the reason [...] been discussed with the patient Marilou Tomlin CHEMICAL TANK WORKER-HOLE PUNCHER [employer] Department of Surgery - Trauma [phone]01-13-2025 NotePhysical Therapy Physical Therapy Evaluation Patient Name: Matty [...] demo General Assessment General Assessment Hearing: mild [place] Skin Integrity: alvaro wrap to RLE, wound [...] Level of Function Prior Function Level of [place]: Independent with ADLs and functional transfers, Independent [...] deficits Perception Inattention/Neglect: A (more content not included)...[facility]01-13-2025 Note Attestation signed by Gabriel Seay MD [...] meet criteria for admission to IPR: Assessment: [place] fracture of the right tibial shaft and [...] Plan of Care: Patient with diagnosis of [place] fracture of the right tibial shaft and [...] oral, TID wit (more content not included)... [facility]01-13-2025 NoteOccupational Therapy Occupational Therapy Evaluation Patient Name: Matty [...] male admitted 09/23/24 as a transfer from [facility] complaining of R tibial shaft transverse [...] carryover General Assessment General Assessment Hearing: Mild [place] Skin Integrity: ALVARO wrap to RLE, DFU [...] LLE heel WB de (more content not included)...[facility]01-13-2025 NoteOrthopaedic Surgery Orthopaedic Surgery Progress Note Date: 09/25/2024 [...] Rivas MD 09/25/24 7:02 AM Ortho Pager: [phone] Hospital01-13-2025 Note [facility] Trauma Surgery Progress Note Subjective Subjective: Patient [...] kg (309 lb 4.9 oz) (09/25 299) [place] Coma Scale Score: 15 Intake/Output Summary (Last [...] Value Ventricular Rate 82 Atrial Rate 82 DC Interval 164 QRS DURATION 92 QT Interval 386 QTC CALCULATION(BAZETT) 450 P [place] 61 R-L[place]hanna 18 T Wave [place] 69 Impression Normal sinus rhythm Normal ECG [...] mary lou-colace an (more content not included)... [facility]01-12-2025 NoteUnDunlap Memorial Hospital Vascular Surgery/Wound Care CONSULTATION Reason for Consult: Left foot ulcer Subjective History of Present Illness: Matty Garces is a 53 y.o. male with a PMH of DM, HTN, HF and recent cellulitis to [facility] . He is admitted for transverse [...] TID, ROMAIN Acevedo, 600 mg at 09/24/24 2158 HYDROmorphone (Dilaudid) injection 0.5 mg, 0.5 mg, [...] rhythm. Pulmonary: Effort: Pulmonar (more content not included)...[facility]01-12-2025 NoteOrthopaedic Surgery Orthopaedic Surgery Progress Note Date: 09/24/2024 [...] BRO MD 09/24/24 10:29 PM Ortho Pager: [phone] Hospital01-12-2025 Note Patient: Matty Garces Procedure Summary Date: 09/24/24 Room / Location: [facility] OPERATING ROOM 05 / [facility] Operating Room Anesthesia Start: 1020 Anesthesia [...] preop) Hydration status: acceptable No notable events documented.[facility]01-12-2025 Note Airway Date/Time: 09/24/2024 10:35 AM Urgency: elective General Information and Staff Patient location during procedure: OR Anesthesiologist: Jeffery Casey MD Resident/BOX BLANK MACHINE FEEDER/CAA: Kenneth Marina MD Performed: resident/BOX BLANK MACHINE FEEDER/CAA Indications and Patient Condition Indications for airway [...] approach: 1 Number of other approaches attempted: 0UnFlower Hospital 09-24-2024 NotePatient: Matty Garces Procedure Information Date/Time: 09/24/24 1000 Procedure: CLOSED INSERTION, INTRAMEDULLARY WENDY, TIBIA (Right: Leg Lower) Location: [facility] OPERATING ROOM 05 / [facility] Operating Room Surgeons: Sandrine Hahn MD [...] Value Ventricular Rate 97 Atrial Rate 97 DC Interval 156 QRS DURATION 84 QT Interval 368 QTC CALCULATION(BAZETT) 467 P L[place]anna 54 R-Loyalhanna 60 T Wave [place] 12 Impression Normal sinus rhythm Normal ECG [...] discussed with attending and resident. Additional Equipment RequestsFort Hamilton Hospital01-12-2025 Note Subjective Patient resting comfortably in bed. [...] kg (304 lb 3.8 oz) (09/24 951) [place] Coma Scale Score: 15 Intake/Output Summary (Last [...] wounds to LLE, wounds (more content not included)...[facility]01-12-2025 NotePhysical Therapy Name: Matty Garces Date of : 1970 Today's Date: 09/24/24 Pt is unable to be seen for therapy at this time secondary to Surgery today for fixation of frature. Will check back and complete therapy session as appropriate. Check No Charge Time attempted: 0759 Janet Lovelace PT, [facility]ENTERUnF[facility] Hospital01-12-2025 Note Orthopaedic Surgery Orthopaedic Surgery Progress Note [...] Rivas MD Orthopaedic Surgery, PGY-2 Ortho Pager [phone] 09/24/24 7:29 AM I am available via gantto 6a-6p. May contact the on-call resident with any concerns via the Orthopaedic pager at any time.[facility]10-22-2024 Telephone encounter Note* Telephone Encounter - Nita Anthony - 07/04/2024 4:10 PM EDT left message regarding prescriptions earlier today and not being at pharmacy. I did call back and spoke to advising they were sent this afternoon. had mentioned Dr. Geiger was also going to start a Vitamin B to help boost energy in the morning. [facility] in [place]. [facility] [id number] Miscellaneous Notes* Telephone Encounter - Nita Anthony - 07/04/2024 4:10 PM EDT left message regarding prescriptions earlier today and not being at pharmacy. I did call back and spoke to advising they were sent this afternoon. had mentioned Dr. Geiger was also going to start a Vitamin B to help boost energy in the morning. [facility] in [place]. documented in this encounterFulton State [id number] History of Present illness Narrative* Rubén Geiger MD - 07/03/2024 2:40 PM EDT Images from the original note were [...] He states he feels like he is gettingall mixed up again. He states he was [...] 1 mg, Oral, 2 times daily HYDROcodone-acetaminophen (Friedens) 5-325 MG tablet hydrOXYzine pamoate (Vistaril) 25 [...] Wan ULNAR NERVE TRANSPOSITION Left 2014 UVULOPALATOPHARYNGOPLASTY Procedure:U.P.P.P.;Disease:Tracheal stenosis Social History Tobacco Use Smoking status: [...] Oriented to person, place and time. Recent andremote memory are intact. Speech is normal. Language [...] reflexes: Alycia's absent. Ankle clonus absent. Coordination Jakbra-gg-uiqw, rapid alternating movements and aree-yw-vniv normal bilaterally without dysmetria. Gait Normal casual, [...] Follow up 3 months. documented in this encounterFulton State [id number] NotePROCEDURE: XR FOOT LT MIN 3 VIEWS COMPARISON: 06/04/2020 HISTORY: Pain [...] Electronically authenticated by: ALVINA CAICEDO Date: 2022-03-26 10:47[facility]06-15-2022 Hospital Discharge instructions Patient Education 02/25/2022 11:09:43 Hydrocele, Adult Hydrocele, Adult A hydrocele is a collection of fluid in the loose pouch of skin that holds the testicles (scrotum).This may happen because: The amount of fluid [...] watch and wait or watchful waiting) until thecondition goes away or symptoms develop. If treatment [...] Watch the hydrocele for any changes. Take icxn-tnm-nujvpwn and prescription medicines only as told by [...] on their own. If a hydrocele causes pain,treatment may be given to ease the pain. This information is not intended to replace advice given to you by your health care provider. Make sure you discuss any questions you have with your health care provider. Document Released: 02/17/2011 Document Revised: 09/10/2018 Document Reviewed: 09/10/2018 [employer] Patient Education 2020 [employer]. 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 Excessive daytime sleepiness Cervical disc disorder Intractable chronic migraine with aura with status migrainosus documented in this encounter [facility] HealthcareEvaluation note* Diagnosis Onset Date Resolution Status Admit Date Hypertrophy of bone of lower leg noneactive May 07 11:21am Fracture of right tibia and fibula noneactive May 07 11:21am Right leg pain noneactive April 11:21am [facility] Work Phone: Evaluation note* Diagnosis Excessive daytime sleepiness Primary insomnia Persistent disorder of initiating or maintaining sleep documented in this encounter [facility] HealthcareEvaluation note* Diagnosis Excessive daytime sleepiness Obstructive sleep apnea Obstructive sleep apnea (adult) (pediatric) documented in this encounter [facility] HealthcareProgress note No data available for this section [facility] reason for referral (narrative)No reason for referral information availableSelect [facility] Work Phone: Summary Purpose Family History No Family History [...] May 11:42am Hospital Course Note MR#: [id number] I [facility] Pt. Name: Matty Garces Admitted: [...] on pain medicatio (more content not included)... Chief Complaint and Reason for Visit Chief Complaint Admit Date [facility] NEW RT TIB FIB FX W POSSIBLE INFECTI ON WX [facility] May 07, 2025 11:21am S82.201A S82.401A M89.369 May 3:26pm Reason for Visit Admit Date Hypertrophy of bone of lower leg May 07, 2025 11:21am Fracture of right tibia and fibula Augus t 2024 11:21am Right leg pain May 07, 2025 11 :21am Chief Complaint Admit Date [facility] NEW RT TIB FIB FX W POSSIBLE INFECTI ON WX [facility] May 07, 2025 11:21am Reason for Visit Admit Date Hypertrophy of bone of lower leg May 07, 2025 11:21am Fracture of right tibia and fibula Augus t 2024 11:21am Right leg pain May 07, 2025 11 :21am Additional Source Comments (unrecognized sect ion and content) No Status Records FoundNo Status Records FoundNo Status Records FoundNo Status Records FoundNo Status Records FoundNo Status Records FoundNo Status Records Found INFORMATION SOURCE (unrecogn ized section and content) DATE CREATED AUTHOR 07/19/2019 [facility] DATE CREATED AUTHOR AUTHOR'S ORGANIZ ATION 02/27/2022 [facility] DATE CREATED AUTHOR AUTHOR'S ORGANIZ ATION 12/08/2022 [facility] DATE CREATED AUTHOR AUTHOR'S ORGANIZ ATION 12/03/2023 [facility] DATE CREATED AUTHOR AUTHOR'S ORGANIZ ATION 10/15/2024 [facility] DATE CREATED AUTHOR AUTHOR'S ORGANIZ ATION 04/05/2025 [facility] DATE CREATED AUTHOR AUTHOR'S ORGANIZ ATION 05/30/2025 [facility] Care Team (unrecognized sect ion and content) Team Status: Inactive Member Role Status Dates Trey Vallejo DPM MS Attending Provider Active Start: January 03, 2024 End: January 03, 2024 Rn Integrity Relationship Specialty Start Date End Date Venus Jaeger MD [address] [place] [facility] [place] [address] PCP - General Family Medicine 01/10/24 Rn Integrity Relationship Specialty Start Date End Date Venus Jaeger MD [address] [place] [facility] [address] PCP - General Family Medicine 01/10/24 Rn Integrity Relationship Specialty Start Date End Date Venus Jaeger MD [address] [place] [facility] [place] [address] PCP - General Family Medicine 01/10/24 Rn Integrity Relationship Specialty Start Date End Date Venus Jaeger MD [address] [place] [facility] [place] [address] PCP - General Family Medicine 01/10/24 Team Status: Inactive Member Role Status Dates Trey Vallejo DPM MS Attending Provider Active Start: September 21, 2024 End: September 21, 2024 Rn Integrity Relationship Specialty Start Date End Date Venus Jaeger MD [address] [place] [facility] [place] [address] PCP - General Family Medicine 01/10/24 Rn Integrity Relationship Specialty Start Date End Date Venus Jaeger MD [address] [place] [facility] [place] [address] PCP - General Family Medicine 01/10/24 Rn Integrity Relationship Specialty Start Date End Date Venus Jaeger MD [address] [place] [facility] [place] [address] PCP - General Family Medicine 01/10/24 Rn Integrity Relationship Specialty Start Date End Date Venus Jaeger MD [address] [place] [address] PCP - General Family Medicine 01/10/24 Rn Integrity Relationship Specialty Start Date End Date Venus Jaeger MD [address] [place] [address] PCP - General Family Medicine 01/10/24 Rn Integrity Relationship Specialty Start Date End Date Venus Jaeger MD PCP - General Family Medicine 01/10/24 Rn Integrity Relationship Specialty Start Date End Date Venus Jaeger MD PCP - General Family Medicine 01/10/24 Rn Integrity Relationship Specialty Start Date End Date Venus Jaeger MD PCP - General Family Medicine 01/10/24 Team Status: Active Member Role Status Dates Venus Jaeger MD Primary Care Provider Active Team Status: Inactive Member Role Status Dates Venus Jaeger MD Primary Care Provider Active Start: May 07, 2025 End: May 07, 2025 Jameel Coats DO Attending Provider Active S tart: May 07, 2025 End: May 07, 2025 Rn Integrity Relationship Specialty Start Date End Date Venus Jaeger MD PCP - General Family Medicine 01/10/24 Rn Integrity Relationship Specialty Start Date End Date Venus Jaeger MD PCP - General Family Medicine 01/10/24 Team Status: Inactive Member Role Status Dates Venus Jaeger MD Primary Care Provider Active Start: May 29, 2025 End: May 29, 2025 Jameel Coats Attending Provider Active S tart: May 29, 2025 End: May 29, 2025 Goals (unrecognized section and content) Goals may be documented in a n alternate section Reason for Visit (unrecogniz ed section and content) Reason Comments Med Refill Reason Comments Narcolepsy Sleep Apnea FOR RECORDS PERTAINING TO PATIENTS WHO ARE [...] BE BASED ON THE PRIMARY CLINICAL RECORDS. [facility] [employer] [facility]. provides no warranty or guarantee of the accuracy or completeness of information in this document.
--- NOTE | 2025-06-16 01:36 | XR_ITS ---
The [address] [address] Patient Name: MATTY WADE MRN: [id number] date: 1970 Sex: M Assigned Patient Location: ED.MAIN Current Patient Location: [place] Accession/Order Number: [id number] Exam Date: 06/16/2025 02:06 Report Date: 06/16/2025 08:38 At the request of: SERA WAYEN MD Procedure: XR foot LT min 3V LEFT FOOT - 3 views CLINICAL HISTORY: Hallux infection COMPARISON: Left foot 03/06/2025 FINDINGS: Toe positioning is suboptimal. There is diffuse soft tissue swelling involving the first digit similar to the prior study. Degenerative changes involving the first digit grossly similar to the prior study. No definitive plain film evidence of acute osteomyelitis. Hardware fixation is seen involving the distal tibia and fibula. Mild degenerative changes involving the midfoot. XR/XR foot LT min 3V IMPRESSION: DIFFUSE SOFT TISSUE SWELLING INVOLVING THE FIRST DIGIT SIMILAR TO THE PRIOR STUDY WITH DEGENERATIVE CHANGE. NO DEFINITIVE ACUTE BONY PROCESS OR PLAIN FILM EVIDENCE OF OSTEOMYELITIS IS SEEN WHEN COMPARED TO THE PRIOR STUDY. Impression dictated by: Bora Gomez Jr., D.O. 06/16/2025 8:38 AM [facility] Electron[facility] authenticated by: [id number] Y Date: 06/16/2025 08:38
--- NOTE | 2025-06-16 01:44 | ED.GENADUL1 ---
HPI HPI - General Adult General Chief complaint: Extremity Problem, Nontraumatic Stated complaint: LE PAIN Time Seen by Provider: 06/16/25 01:30 Source: patient Mode of arrival: walk-in Limitations: no limitations History of Present Illness HPI narrative: 54-year-old male presenting to the emergency department for a wound on his left great toe. He states about a week ago he was wearing flip-flops and hit it on a rock. He has a wound there that has not been healing and now he states it smells bad and he has had some pus coming out of it. He is not diabetic. The pain is mild to moderate. Related Data Home Medications ?Medication ?Instructions ?Recorded ?Confirmed carvedilol 25 mg tablet 25 mg PO BID 06/14/23 03/05/25 doxazosin 8 mg tablet 8 mg PO DAILY 06/14/23 03/05/25 furosemide 20 mg tablet 20 mg PO DAILY 06/14/23 03/05/25 gabapentin 600 mg tablet 600 mg PO DAILY 06/14/23 03/06/25 glycopyrrolate 1 mg tablet 1 mg PO BID 06/14/23 03/05/25 pantoprazole 40 mg tablet,delayed 40 mg PO DAILY 06/14/23 03/05/25 release simvastatin 20 mg tablet 20 mg PO .qhs 06/14/23 03/05/25 modafinil 200 mg tablet 200 mg PO BID 09/04/23 03/05/25 potassium chloride 10 mEq 10 meq PO Q12H 09/04/23 03/05/25 tablet,extended release amantadine HCl 100 mg tablet 100 mg PO BID 12/28/23 03/05/25 cholecalciferol (vitamin D3) 125 5,000 unit PO DAILY 12/28/23 03/05/25 mcg (5,000 unit) capsule multivitamin (Daily Multi-Vitamin 1 tab PO DAILY 12/28/23 03/05/25 tablet) biotin 10 mg tablet 10 mg PO DAILY 09/19/24 03/05/25 citalopram 40 mg tablet 40 mg PO DAILY 09/20/24 03/05/25 testosterone cypionate 200 mg/mL 300 mg IM Q14D 09/20/24 03/05/25 intramuscular oil amlodipine 5 mg tablet 5 mg PO QAM 03/06/25 03/06/25 aspirin 81 mg tablet,delayed 81 mg PO DAILY 03/06/25 03/05/25 release (Adult Low Dose Aspirin) meclizine 25 mg tablet 25 mg PO DAILY PRN dizziness 03/06/25 03/06/25 ondansetron HCl 4 mg tablet 8 mg PO Q8H PRN nausea and vomiting 03/06/25 03/06/25 sildenafil 25 mg tablet 25 mg PO Q24H 03/06/25 03/06/25 sodium, calcium, magnesium, 4.5 g PO HS 03/06/25 03/06/25 potassium oxybates 0.5 gram/mL oral soln (Xywav) sumatriptan succinate 100 mg 100 mg PO Q2H PRN migraine headache 03/06/25 03/06/25 tablet (Imitrex) Previous Rx's ?Medication ?Instructions ?Recorded apixaban 5 mg tablet (Eliquis) 10 mg (2 x 5 mg) PO BID #60 tabs 03/06/25 cefdinir 300 mg capsule 300 mg PO BID #20 caps 03/06/25 doxycycline monohydrate 100 mg 100 mg PO BID 10 days #20 caps 03/06/25 capsule Allergies Allergy/AdvReac Type Severity Reaction Status Date / Time No Known Drug Allergies Allergy Verified 06/16/25 01:28 Opioid HPI Opioid Management Most Recent Opioid Data: Last Pain Scale 7 03/06/25, 09:05 Last ORT Total Score 0 03/05/25, 23:46 Last ORT Risk Category Low Risk 03/05/25, 23:46 Review of Systems ROS Narrative A ten point review of systems is negative except as noted above. [facility] Medical History Prolonged emergence from general anesthesia ?T88.59XA - Other complications of anesthesia, initial encounter (ICD-10) Pain management contract signed ?Z02.89 - Encounter for other administrative examinations (ICD-10) Back pain ?M54.9 - Dorsalgia, unspecified (ICD-10) PTSD (post-traumatic stress disorder) ?F43.10 - Post-traumatic stress disorder, unspecified (ICD-10) Depression ?F32.A - Depression, unspecified (ICD-10) Dysphagia ?R13.10 - Dysphagia, unspecified (ICD-10) Uvulitis ?K12.2 - Cellulitis and abscess of mouth (ICD-10) Insomnia ?G47.00 - Insomnia, unspecified (ICD-10) Migraine ?G43.909 - Migraine, unspecified, not intractable, without status migrainosus (ICD-10) GERD (gastroesophageal reflux disease) ?K21.9 - Gastro-esophageal reflux disease without esophagitis (ICD-10) Dyspnea on exertion ?R06.09 - Other forms of dyspnea (ICD-10) Heart valve disorder ?I38 - Endocarditis, valve unspecified (ICD-10) Hypoglycemia ?E16.2 - Hypoglycemia, unspecified (ICD-10) Delayed recovery from anesthesia Chronic foot ulcer ?L97.509 - Non-pressure chronic ulcer of other part of unspecified foot with unspecified severity (ICD-10) 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 - Central serous chorioretinopathy, unspecified eye (ICD-10) Chronic pain ?G89.29 - Other chronic pain (ICD-10) Narcolepsy ?G47.419 - 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) Anxiety ?F41.9 - Anxiety disorder, unspecified (ICD-10) Upper back pain ?M54.9 - Dorsalgia, unspecified (ICD-10) Low back pain ?M54.50 - Low back pain, unspecified (ICD-10) TMJ (dislocation of temporomandibular joint) ?S03.00XA - Dislocation of jaw, unspecified side, initial encounter (ICD-10) Obesity ?E66.9 - Obesity, unspecified (ICD-10) Sleep apnea ?G47.30 - Sleep apnea, unspecified (ICD-10) Hypertension ?I10 - Essential (primary) hypertension (ICD-10) Surgical History H/O foot surgery ?Z98.890 - Other specified postprocedural states (ICD-10) H/O radiofrequency ablation (RFA) of nerve of lumbar spine ?Z98.890 - Other specified postprocedural states (ICD-10) History of fusion of cervical spine ?Z98.1 - Arthrodesis status (ICD-10) H/O inguinal hernia repair ?Z98.890 - Other specified postprocedural states (ICD-10) ?Z87.19 - Personal history of other diseases of the digestive system (ICD-10) H/O repair of rotator cuff ?Z98.890 - Other specified postprocedural states (ICD-10) History of uvulopalatopharyngoplasty ?Z98.890 - Other specified postprocedural states (ICD-10) Family History Other Family history of diabetes mellitus Family history of hypertension Family history of myocardial infarction Family history of stroke Social History Within the past year, how often did you have a drink containing alcohol: monthly or less Smoking status: Never smoker Non-prescribed substance use: cannabis (any form) Previous occupational history: unemployed Highest level of school completed/degree received: high school graduate Are you now , , , , never or living with a partner: Little interest or pleasure in doing things: more than half the days Feeling down, depressed, or hopeless: more than half the days Feel stressed/tense/nervous/anxious/difficulty sleeping: not at all Do you think of yourself as: don't know Gender Identity: male Exam Narrative Exam Narrative: Nurses note and vital signs reviewed and patient is not hypoxic. General:The patient appears well and in no apparent distress.Patient is resting comfortably on cart. Skin:Warm, dry, no pallor noted.There is no rash noted. Head:Normocephalic, atraumatic Eye: Normal conjunctiva, no drainage Ears, Nose, Mouth, and Throat: oral mucosa is moist. Nares patent. Cardiovascular:Regular Rate and Rhythm Respiratory:Patient is in no distress, no accessory muscle use, lungs are clear to auscultation, no wheezing, rales or rhonchi Back:non-tender GI: Soft and nontender Musculoskeletal: Left hallux is swollen and erythematous and there is a wound which is circular with missing skin, it is ulcerated. Neurological:A&O, normal speech Psychiatric:Cooperative Constitutional Vital Signs, click to edit/add: Last Vital Signs Temp 98.1 F 06/16/25 01:24 Pulse 97 H 06/16/25 01:24 Resp 18 06/16/25 01:24 BP 142/84 H 06/16/25 01:24 Pulse Ox 97 06/16/25 01:24 O2 Del Method Room Air 06/16/25 01:24 Course Vital Signs Vital signs: Vital Signs Temperature 98.1 F 06/16/25 01:24 Pulse Rate 97 H 06/16/25 01:24 Respiratory Rate 18 06/16/25 01:24 Blood Pressure 142/84 H 06/16/25 01:24 Pulse Oximetry 97 06/16/25 01:24 Oxygen Delivery Method Room Air 06/16/25 01:24 Temperature 98.1 F 06/16/25 01:24 Pulse Rate 97 H 06/16/25 01:24 Respiratory Rate 18 06/16/25 01:24 Blood Pressure 142/84 H 06/16/25 01:24 Pulse Oximetry 97 06/16/25 01:24 Oxygen Delivery Method Room Air 06/16/25 01:24 Medical Decision Making MDM Narrative Medical decision making narrative: Blood work is nonspecific. X-ray of the foot on my interpretation shows degenerative changes and questionable osteomyelitis. ESR and CRP are elevated. He was given IV vancomycin and Zosyn and will be admitted. Findings were discussed with the patient. Differential Diagnosis Differential Diagnosis: Cellulitis, abscess, osteomyelitis Lab Data Lab results reviewed: Yes I reviewed the patient's lab results Labs: Lab Results 06/16/25 06/16/25 Range/Units 01:34 02:00 WBC 8.6 (4.0-11.0) 10^3/uL RBC 4.76 (4.70-6.10) 10^6/uL Hgb 13.4 L (14.0-18.0) g/dL Hct 42.5 (42.0-54.0) % MCV 89.3 (80.0-94.0) fL MCH 28.2 (25.9-34.0) pg MCHC 31.5 (29.9-35.2) g/dL RDW 13.8 (11.0-15.0) % Plt Count 168 (150-450) 10^3/uL MPV 10.0 (9.5-13.5) fL Neut % (Auto) 79.1 H (43.0-75.0) % Lymph % (Auto) 10.1 L (20.5-60.0) % Patrick % (Auto) 8.3 (1.7-12.0) % Eos % (Auto) 1.4 (0.9-7.0) % Baso % (Auto) 0.6 (0.2-2.0) % Neut # (Auto) 6.8 H (1.4-6.5) 10^3/uL Lymph # (Auto) 0.9 L (1.2-3.8) 10^3/uL Patrick # (Auto) 0.7 (0.3-0.8) 10^3/uL Eos # (Auto) 0.1 (0.0-0.7) 10^3/uL Baso # (Auto) 0.1 (0.0-0.1) 10^3/uL Abs Immat Gran (auto) 0.04 H (0.00-0.03) 10^3/uL Imm/Tot Granulo (auto) 0.5 (0.0-0.5) % ESR 46 H (<=20) mm/hr Sodium 142 (136-145) mmol/L Potassium 3.4 L (3.5-5.1) mmol/L Chloride 103 (98-107) mmol/L Carbon Dioxide 31.8 (21.0-32.0) mmol/L Anion Gap 10.6 BUN 12.0 (7.0-18.0) mg/dL Creatinine 1.04 (0.70-1.30) mg/dL Est GFR ( Amer) >60 (>=60 mL/min/1.73m^2) Est GFR (Non-Af Amer) >60 (>=60 mL/min/1.73m^2) BUN/Creatinine Ratio 11.5 Glucose 116 H (74-106) mg/dL Calcium 9.3 (8.5-10.1) mg/dL C-Reactive Protein 2.79 H (<=0.50) mg/dL POC Glucose 109 H (74-106) mg/dL Imaging Data Left foot x-ray: My impression: Degenerative changes, questionable osteomyelitis Discharge Plan Discharge Chief Complaint: Extremity Problem, Nontraumatic Clinical Impression: Cellulitis of foot, left Patient Disposition: Admitted As Inpatient Time of Disposition Decision: 02:15 Condition: Fair
[2025-06-16 02:28] LABS: Hematocrit 42.5 % (42.0-54.0); Hemoglobin 13.4 g/dL (14.0-18.0); Immature Granulocytes Abs Auto 0.04 10^3/uL (0.00-0.03); Immature Granulocytes Pct Auto 0.5 % (0.0-0.5); Lymphocytes Absolute Auto 0.9 10^3/uL (1.2-3.8); Mean Corpuscular HGB Conc 31.5 g/dL (29.9-35.2); Mean Corpuscular Hemoglobin 28.2 pg (25.9-34.0); Mean Corpuscular Volume 89.3 fL (80.0-94.0); Platelet Count 168 10^3/uL (150-450); Red Blood Count 4.76 10^6/uL (4.70-6.10); White Blood Count 8.6 10^3/uL (4.0-11.0)
[2025-06-16 02:37] LABS: Anion Gap 10.6; Blood Urea Nitrogen 12.0 mg/dL (7.0-18.0); Calcium 9.3 mg/dL (8.5-10.1); Carbon Dioxide 31.8 mmol/L (21.0-32.0); Chloride 103 mmol/L (98-107); Estimated GFR (African America >60 (>=60 mL/min/1.73m^2); Estimated GFR (Non-African Ame >60 (>=60 mL/min/1.73m^2); Glucose 116 mg/dL (74-106); Potassium 3.4 mmol/L (3.5-5.1); Sodium 142 mmol/L (136-145)
[2025-06-16 02:46] LABS: Lactate/Lactic Acid 1.8 mmol/L (0.4-2.0)
[2025-06-16] MEDS: PIPERACILLIN SODIUM/TAZOBACTAM 3.375 GM in 0.9 % SODIUM CHLORIDE 50 ML IV ×3 (02:49→20:00)
--- OUTSIDE RECORDS SUMMARY | 2025-06-16 03:20 | XMS_ITS | CCD ---
Author Organization [facility] CliniSysc Care Team Providers Care Supply Requirements Officer Name Role Phone UNKNOWN, PROVIDER Admitting Unavailable UNKNOWN, PROVIDER Attending Unavailable VENUS JAEGER Referring Unavailable VENUS JAEGER Primary Care Unavailable [place] Procedure Practitioner Unavailab le UNKNOWN, PROVIDER Surgeon Unavailable [place] Procedure Practitioner Unavailab le SANDRA BILL Surgeon Unavailable UNKNOWN, PROVIDER Admitting Unavailable UNKNOWN, PROVIDER Attending Unavailable VENUS JAEGER Referring Unavailable VENUS JAEGER Primary Care Unavailable [place] Procedure Practitioner Unavailab le UNKNOWN, PROVIDER Surgeon Unavailable Venus Jaeger Primary Care Physician [phone] DONOVAN Admitting Unavailable HOY [...] Provider Venus Jaeger MD Primary Care Provider [phone] Yoni MAGANA, Trey Smith Attending Provider [phone] MARIANNA SUAREZ Referring Unavailable SUYAPA, SHIN Referring [...] Unavailable Venus Jaeger MD Primary Care Provider [phone] RUBÉN GEIGER Attending Unavailable RUBÉN GEIGER Attending Unavailable RUBÉN GEIGER Attending Unavailable RUBÉN GEIGER Attending Unavailable Venus Jaeger MD Primary Care Provider [phone] Jameel Coats DO Attending Provider Trey Vallejo Admitting Unavailable Trey Vallejo Attending Unavailable Venus Jaeger Primary Care Unavailable Jameel Coats Admitting Unavailable Jameel Coats Attending Unavailable Allergies Allergy Classification Reported Allergen(s) Allergy Type Date of Onset Reaction(s) Facility (1 source) Aspartame Drug Allergy 08-17-20 18 [facility] Repository (1 source) avoid; Translations: [Unknown] Propensity to adverse reactions (disorder) 08-17-20 18 [facility] Repository (1 source) vitamin B12; Translations: [cyanocobalamin] Drug Allergy Unknown (qualifier value) [facility] (1 source) Acetaminophen / HYDROcodone Drug Allergy [facility] Repository (1 source) Corticosteroids Drug allergy (disorder) [facility] Repository (1 source) fentaNYL Drug Allergy [facility] Repository (1 source) Misc-Food; Translations: [Misc-Food] Food allergy (disorder) [facility] Repository (19 sources) fentaNYL Drug Allergy 07-08-20 Unknown [facility] (19 sources) HYDROcodone Drug Allergy 07-08-20 Unknown [facility] (19 sources) Morphine And Codeine Drug Allergy 07-08-20 Unknown [facility] (19 sources) Other Propensity to adverse reactions 07-08-20 [facility] (1 source) Corticosteroids Drug allergy (disorder) 05-07-20 [facility] Repository Medications Current Medications Medication Drug Class(es) Dates Sig (Normalized) Sig (Original) acetaminophen 325 mg / HYDROcodone bitartrate 5 mg oral tablet (19 sources) Opioid Agonist Start: 03-20-2024 HYDROcodone-aceta minophen ([place]) 5-325 MG tablet 03/20/2024 Active amantadine hydrochloride [...] Take with food. . 02/22/2023 Active sennosides, custodial 8.6 mg oral tablet (19 sources) Start: [...] by mouth at bedtime. 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 05/29/2025 11:40 PM Dictation Location: [place] [address] Transcribed By: [facility] 05/29/25 2340 Dictated By: Francis Irving II, MD 05/29/25 1774 Signed By: 05/29/25 2340 Normal [facility] ECG 12-LEADon 03-06-[address] [address] Electrocardiograph Report Signed Patient: MATTY GARCES MR#: [id number] : 1970 Acct:[id number] Age/Sex: 54 / M ADM Date: 03/05/25 Loc: [place] 221-[address]: Venus Jaeger M.D. 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 Measurements Intervals [place] Rate: 76 P: 60 [place]: 178 QRS: 69 QRSD: 100 T: 46 QT: 406 QTc: 437 Interpretive Statements 1100 Sinus rhythm 0102 ARTIFACT PRESENT 9110 normal ECG Compared to ECG 09/23/2024 05:51:07 No significant changes Electronically Signed On 03-06-2025 9:29:34 EDT by RAMIRO WALLS M.D. Dictated By: RAMIRO WALLS Signed By: 03/06/25928 DD/ 06 TD/TT: Sports Medicine Masseur: [facility] Radiology, Radiologist, - 03/06/2025 [place] [address] Electrocardiograph Report Signed Patient: MATTY GARCES MR#: [id number] : 1970 Acct:[id number] Age/Sex: 54 / M ADM Date: 03/05/25 Loc: [place] 221-[address]: Venus Jaeger M.D. 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 Measurements Intervals [place] Rate: 76 P: 60 [place]: 178 QRS: 69 QRSD: 100 T: 46 QT: 406 QTc: 437 Interpretive Statements 1100 Sinus rhythm 0102 ARTIFACT PRESENT 9110 normal ECG Compared to ECG 09/23/2024 05:51:07 No significant changes Electronically Signed On 03-06-2025 9:29:34 EDT by RAMIRO WALLS M.D. Dictated By: RAMIRO WALLS Signed By: 03/06/25928 DD/ 06 TD/TT: Sports Medicine Masseur: [facility] [employer] ECG 12-LEADOrdered By: Radio logist Radiology on 03-06-2025 [facility] [employer] Work Phone: ECG 12-LEADon 03-05-2025 Radiology Study observation (narrative) [facility] [employer] BASIC METABOLIC PANELon 09-14 Anion gap [Moles/Vol] 8 mmol/L Normal 7-20 [facility] Comment on above: Performed By: #### L [id number] #### [facility] [address] [place] [address] Calcium [Mass/Vol] 9.7 mg/dL Normal 8.6-10.3 [facility] Comment on above: Performed By: #### L [id number] #### [facility] ([facility]) [address] [place] [address] Chloride [Moles/Vol] 97 mmol/L Low 98-107 [facility] Comment on above: Performed By: #### L [id number] #### [facility] ([facility]) [address] [place] [address] CO2 [Moles/Vol] 35 mmol/L High 21-31 [facility] Comment on above: Performed By: #### L [id number] #### [facility] ([facility]) [address] [place] [address] Creatinine [Mass/Vol] 1.02 mg/dL Normal 0.70-1.30 [facility] Comment on above: Performed By: #### L [id number] #### [facility] ([facility]) [address] [place] [address] GLOMERULAR FILTRATION RATE ML/MIN/1.73 SQ M.PREDICTED 86.8 mL/min/1.73m*2 Normal >60.0 [facility] Comment on above: Result Comment: [facility]???s estimated glomerular filtration rate (eGFR) will [...] individuals. Performed By: #### L [id number] #### [facility] ([facility]) [address] [place] [address] Glucose [Mass/Vol] 80 mg/dL Normal 70-100 [facility] Comment on above: Performed By: #### L [id number] #### [facility] ([facility]) [address] [place] [address] Potassium [Moles/Vol] 4.2 mmol/L Normal 3.5-5.1 [facility] Comment on above: Performed By: #### L [id number] #### [facility] ([facility]) [address] [place] [address] Sodium [Moles/Vol] 136 mmol/L Normal 136-145 [facility] Comment on above: Performed By: #### L [id number] #### [facility] ([facility]) [address] [place] [address] Urea nitrogen [Mass/Vol] 8 mg/dL Normal 7-25 [facility] Comment on above: Performed By: #### L [id number] #### [facility] ([facility]) [address] [place] [address] UREA NITROGEN/CREATININE (MASS RATIO) IN SER/PLAS 7.8 Normal [facility] Comment on above: Performed By: #### L [id number] #### [facility] ([facility]) [address] [place] [address] CBC WITH AUTO DIFFERENTIALon 10-11-2024 Basophils (Bld) [#/Vol] 0.06 10*3/uL Normal 0.00-0.20 [facility] Comment on above: Performed By: #### L [id number] ####[facility] ([facility])[address] [place] [address] Basophils/100 WBC (Bld) 0.9 % Normal 0.0-1.0 [facility] Comment on above: Performed By: #### L [id number] ####[facility] ([facility])[address] [place] [address] Eosinophils (Bld) [#/Vol] 0.21 10*3/uL Normal 0.00-0.50 [facility] Comment on above: Performed By: #### L [id number] ####[facility] ([facility])[address] [place] [address] Eosinophils/100 WBC (Bld) 3.0 % Normal 0.0-6.0 [facility] Comment on above: Performed By: #### L [id number] ####[facility] ([facility])[address] [place] [address] Erythrocyte distribution width (RBC) [Ratio] 16.7 % High 11.5-15.0 [facility] Comment on above: Performed By: #### L [id number] ####[facility] ([facility])[address] [place] [address] ERYTHROCYTE MEAN CORPUSCULAR HEMOGLOBIN CONCENTRATION (G/DL) BY AUTOMATED 29.9 g/dL Low 32.0-35.0 [facility] Comment on above: Performed By: #### L [id number] ####[facility] [place] [address] Hematocrit (Bld) [Volume fraction] 44.5 % Normal 39.0-55.0 [facility] Comment on above: Performed By: #### L [id number] ####[facility] ([facility])[address] [place] [address] Hemoglobin (Bld) [Mass/Vol] 13.3 g/dL Normal 13.0-17.0 [facility] Comment on above: Performed By: #### L [id number] ####[facility] ([facility])[address] [place] [address] Immature granulocytes (Bld) [#/Vol] 0.11 10*3/uL Normal 0.00-0.20 [facility] Comment on above: Performed By: #### L [id number] ####[facility] ([facility])[address] [place] [address] Immature granulocytes/100 WBC (Bld) 1.6 % High 0.0-1.0 [facility] Comment on above: Performed By: #### L [id number] ####[facility] ([facility])[address] [place] [address] Lymphocytes (Bld) [#/Vol] 0.91 10*3/uL Low 1.20-4.00 [facility] Comment on above: Performed By: #### L [id number] ####[facility] ([facility])[address] [place] [address] Lymphocytes/100 WBC (Bld) 12.9 % Low 20.0-45.0 [facility] Comment on above: Performed By: #### L [id number] ####[facility] ([facility])[address] [place] [address] MCH (RBC) [Entitic mass] 26.9 pg Low 27.0-33.0 [facility] Comment on above: Performed By: #### L [id number] ####[facility] ([facility])[address] [place] [address] MCV (RBC) [Entitic vol] 89.9 fL Normal 82.0-98.0 [facility] Comment on above: Performed By: #### L [id number] ####[facility] ([facility])[address] [place] [address] Monocytes (Bld) [#/Vol] 0.65 10*3/uL Normal 0.10-1.00 [facility] Comment on above: Performed By: #### L [id number] ####[facility] ([facility])[address] [place] [address] Monocytes/100 WBC (Bld) 9.2 % Normal 5.0-12.0 [facility] Comment on above: Performed By: #### L [id number] ####[facility] ([facility])[address] [place] [address] Neutrophils (Bld) [#/Vol] 5.11 10*3/uL Normal 1.60-7.60 [facility] Comment on above: Performed By: #### L [id number] ####[facility] ([facility])[address] [place] [address] Neutrophils/100 WBC (Bld) 72.4 % High 40.0-72.0 [facility] Comment on above: Performed By: #### L [id number] ####[facility] ([facility])[address] [place] [address] NRBC (PER 100 WBCS) BY AUTOMATED COUNT 0.0 % Normal 0 [facility] Comment on above: Performed By: #### L [id number] ####[facility] ([facility])[address] [place] [address] PLATELETS (10*3/UL) IN BLOOD AUTOMATED COUNT 218 10*3/uL Normal 150-400 [facility] Comment on above: Performed By: #### L [id number] ####[facility] ([facility])[address] [place] [address] RBC (Bld) [#/Vol] 4.95 10*6/uL Normal 4.20-5.70 [facility] Comment on above: Performed By: #### L [id number] ####[facility] ([facility])[address] [place] [address] WBC (Bld) [#/Vol] 7.05 10*3/uL Normal 4.00-10.60 [facility] Comment on above: Performed By: #### L [id number] ####[facility] ([facility])[address] [place] [address] BASIC METABOLIC PANELon -2 Anion gap [Moles/Vol] 9 mmol/L Normal 7-20 [facility] Comment on above: Performed By: #### L [id number] #### [facility] [address] [place] [address] Calcium [Mass/Vol] 9.5 mg/dL Normal 8.6-10.3 [facility] Comment on above: Performed By: #### L [id number] #### [facility] [address] [place] [address] Chloride [Moles/Vol] 96 mmol/L Low 98-107 [facility] Comment on above: Performed By: #### L [id number] #### [facility] [address] [place] [address] CO2 [Moles/Vol] 34 mmol/L High 21-31 [facility] Comment on above: Performed By: #### L [id number] #### [facility] ([facility]) [address] [place] [address] Creatinine [Mass/Vol] 0.93 mg/dL Normal 0.70-1.30 [facility] Comment on above: Performed By: #### L [id number] #### [facility] ([facility]) [address] [place] [address] GLOMERULAR FILTRATION RATE ML/MIN/1.73 SQ M.PREDICTED 97.0 mL/min/1.73m*2 Normal >60.0 [facility] Comment on above: Result Comment: [facility]???s estimated glomerular filtration rate (eGFR) will [...] individuals. Performed By: #### L [id number] #### [facility] [address] [place] [address] Glucose [Mass/Vol] 85 mg/dL Normal 70-100 [facility] Comment on above: Performed By: #### L [id number] #### [facility] [address] [place] [address] Potassium [Moles/Vol] 4.0 mmol/L Normal 3.5-5.1 [facility] Comment on above: Performed By: #### L [id number] #### [facility] [address] [place] [address] Sodium [Moles/Vol] 135 mmol/L Low 136-145 [facility] Comment on above: Performed By: #### L [id number] #### [facility] ([facility]) [address] [place] [address] Urea nitrogen [Mass/Vol] 8 mg/dL Normal 7-25 [facility] Comment on above: Performed By: #### L [id number] #### [facility] ([facility]) [address] [place] [address] UREA NITROGEN/CREATININE (MASS RATIO) IN SER/PLAS 8.6 Normal [facility] Comment on above: Performed By: #### L [id number] #### [facility] ([facility]) [address] [place] [address] C-REACTIVE PROTEINon 025 C REACTIVE PROTEIN (MG/L) IN SER/PLAS 11.5 mg/L High <=5.0 [facility] Comment on above: Result Comment: Test ing performed using a new methodology, turbidimetry. Normal ranges have been updated. Old normal range was <8 mg/L. Performed By: #### L [id number] #### [facility] ([facility]) [address] [place] [address] CBC WITH AUTO DIFFERENTIALon 10-10-2024 Basophils (Bld) [#/Vol] 0.08 10*3/uL Normal 0.00-0.20 [facility] Comment on above: Performed By: #### L [id number] ####[facility] ([facility])[address] [place] [address] Basophils/100 WBC (Bld) 1.1 % High 0.0-1.0 [facility] Comment on above: Performed By: #### L [id number] ####[facility] ([facility])[address] [place] [address] Eosinophils (Bld) [#/Vol] 0.19 10*3/uL Normal 0.00-0.50 [facility] Comment on above: Performed By: #### L [id number] ####[facility] ([facility])[address] [place] [address] Eosinophils/100 WBC (Bld) 2.7 % Normal 0.0-6.0 [facility] Comment on above: Performed By: #### L [id number] ####[facility] ([facility])[address] [place] [address] Erythrocyte distribution width (RBC) [Ratio] 16.6 % High 11.5-15.0 [facility] Comment on above: Performed By: #### L [id number] ####[facility] ([facility])[address] [place] [address] ERYTHROCYTE MEAN CORPUSCULAR HEMOGLOBIN CONCENTRATION (G/DL) BY AUTOMATED 30.1 g/dL Low 32.0-35.0 [facility] Comment on above: Performed By: #### L [id number] ####[facility] ([facility])[address] [place] [address] Hematocrit (Bld) [Volume fraction] 44.5 % Normal 39.0-55.0 [facility] Comment on above: Performed By: #### L [id number] ####[facility] ([facility])[address] [place] [address] Hemoglobin (Bld) [Mass/Vol] 13.4 g/dL Normal 13.0-17.0 [facility] Comment on above: Performed By: #### L [id number] ####[facility] ([facility])[address] [place] [address] Immature granulocytes (Bld) [#/Vol] 0.10 10*3/uL Normal 0.00-0.20 [facility] Comment on above: Performed By: #### L [id number] ####[facility] ([facility])[address] [place] [address] Immature granulocytes/100 WBC (Bld) 1.4 % High 0.0-1.0 [facility] Comment on above: Performed By: #### L [id number] ####[facility] ([facility])[address] [place] [address] Lymphocytes (Bld) [#/Vol] 0.90 10*3/uL Low 1.20-4.00 [facility] Comment on above: Performed By: #### L [id number] ####[facility] ([facility])[address] [place] [address] Lymphocytes/100 WBC (Bld) 12.8 % Low 20.0-45.0 [facility] Comment on above: Performed By: #### L [id number] ####[facility] ([facility])[address] [place] [address] MCH (RBC) [Entitic mass] 26.9 pg Low 27.0-33.0 [facility] Comment on above: Performed By: #### L [id number] ####[facility] ([facility])[address] [place] [address] MCV (RBC) [Entitic vol] 89.4 fL Normal 82.0-98.0 [facility] Comment on above: Performed By: #### L [id number] ####[facility] ([facility])[address] [place] [address] Monocytes (Bld) [#/Vol] 0.60 10*3/uL Normal 0.10-1.00 [facility] Comment on above: Performed By: #### L [id number] ####[facility] ([facility])[address] [place] [address] Monocytes/100 WBC (Bld) 8.5 % Normal 5.0-12.0 [facility] Comment on above: Performed By: #### L [id number] ####[facility] ([facility])[address] [place] [address] Neutrophils (Bld) [#/Vol] 5.17 10*3/uL Normal 1.60-7.60 [facility] Comment on above: Performed By: #### L [id number] ####[facility] ([facility])[address] [place] [address] Neutrophils/100 WBC (Bld) 73.5 % High 40.0-72.0 [facility] Comment on above: Performed By: #### L [id number] ####[facility] ([facility])[address] [place] [address] NRBC (PER 100 WBCS) BY AUTOMATED COUNT 0.0 % Normal 0 [facility] Comment on above: Performed By: #### L [id number] ####[facility] ([facility])[address] [place] [address] PLATELETS (10*3/UL) IN BLOOD AUTOMATED COUNT 243 10*3/uL Normal 150-400 [facility] Comment on above: Performed By: #### L [id number] ####[facility] ([facility])[address] [place] [address] RBC (Bld) [#/Vol] 4.98 10*6/uL Normal 4.20-5.70 [facility] Comment on above: Performed By: #### L [id number] ####[facility] ([facility])[address] [place] [address] WBC (Bld) [#/Vol] 7.04 10*3/uL Normal 4.00-10.60 [facility] Comment on above: Performed By: #### L [id number] ####[facility] ([facility])[address] [place] [address] SEDIMENTATION RATEon 025 SEDIMENTATION RATE, ERYTHROCYTE 54 mm/hr High <20 [facility] Comment on above: Performed By: #### L [id number] #### [facility] ([facility]) [address] [place] [address] VANCOMYCIN, PEAKon 5 VANCOMYCIN (UG/ML) IN SER/PLAS - PEAK 23.0 ug/mL Normal 20.0-50.0 [facility] Comment on above: Performed By: #### L [id number] #### [facility] [address] [place] [address] VANCOMYCIN, TROUGHon 025 VANCOMYCIN (UG/ML) IN SER/PLAS - TROUGH 19.2 ug/mL Normal 5.0-20.0 [facility] Comment on above: Performed By: #### L [id number] #### [facility] ([facility]) [address] [place] [address] 36on 10-09-2024 36 Spoke with facility and patient was admitted back here at [place] yesterday. They will call back if they need any orders. Normal [facility] BASIC METABOLIC PANELon 09-14 Anion gap [Moles/Vol] 9 mmol/L Normal 04-01 [facility] Comment on above: Performed By: #### L [id number] ####[facility] ([facility])[address] [place] [address] Calcium [Mass/Vol] 9.4 mg/dL Normal 8.6-10.3 [facility] Comment on above: Performed By: #### L [id number] ####[facility] ([facility])[address] [place] [address] Chloride [Moles/Vol] 96 mmol/L Low 98-107 [facility] Comment on above: Performed By: #### L [id number] ####[facility] ([facility])[address] [place] [address] CO2 [Moles/Vol] 36 mmol/L High 21-31 [facility] [facility] Comment on above: Performed By: #### L [id number] ####[facility] ([facility])[address] [place] [address] Creatinine [Mass/Vol] 0.98 mg/dL Normal 0.70-1.30 [facility] Comment on above: Performed By: #### L [id number] ####[facility] ([facility])[address] [place] [address] GLOMERULAR FILTRATION RATE ML/MIN/1.73 SQ M.PREDICTED 91.1 mL/min/1.73m*2 Normal >60.0 [facility] Comment on above: Result Comment: The [facility]???s estimated glomerular filtration rate (eGFR) will [...] of individuals. Performed By: #### L [id number] ####[facility] ([facility])[address] [place] [address] Glucose [Mass/Vol] 90 mg/dL Normal 70-100 [facility] Comment on above: Performed By: #### L [id number] ####[facility] ([facility])[address] [place] [address] Potassium [Moles/Vol] 4.0 mmol/L Normal 3.5-5.1 [facility] Comment on above: Performed By: #### L [id number] ####[facility] ([facility])[address] [place] [address] Sodium [Moles/Vol] 137 mmol/L Normal 136-145 [facility] Comment on above: Performed By: #### L [id number] ####[facility] ([facility])[address] [place] [address] Urea nitrogen [Mass/Vol] 7 mg/dL Normal 7-25 [facility] Comment on above: Performed By: #### L [id number] ####[facility] ([facility])[address] [place] [address] UREA NITROGEN/CREATININE (MASS RATIO) IN SER/PLAS 7.1 Normal [facility] Comment on above: Performed By: #### L [id number] ####[facility] ([facility])[address] [place] [address] CBCon 10-09-2024 Erythrocyte distribution width (RBC) [Ratio] 16.2 % High 11.5-15.0 [facility] Comment on above: Performed By: #### L [id number] #### [facility] ([facility] [address] [place] [address] ERYTHROCYTE MEAN CORPUSCULAR HEMOGLOBIN CONCENTRATION (G/DL) BY AUTOMATED 30.5 g/dL Low 32.0-35.0 [facility] Comment on above: Performed By: #### L [id number] #### [facility] [address] [place] [address] Hematocrit (Bld) [Volume fraction] 42.0 % Normal 39.0-55.0 [facility] Comment on above: Performed By: #### L [id number] #### [facility] ([facility]) [address] [place] [address] Hemoglobin (Bld) [Mass/Vol] 12.8 g/dL Low 13.0-17.0 [facility] Comment on above: Performed By: #### L [id number] #### [facility] ([facility]) [address] [place] [address] MCH (RBC) [Entitic mass] 26.9 pg Low 27.0-33.0 [facility] Comment on above: Performed By: #### L [id number] #### [facility] ([facility]) [address] [place] [address] MCV (RBC) [Entitic vol] 88.2 fL Normal 82.0-98.0 [facility] Comment on above: Performed By: #### L [id number] #### [facility] ([facility]) [address] [place] [address] PLATELETS (10*3/UL) IN BLOOD AUTOMATED COUNT 240 10*3/uL Normal 150-400 [facility] Comment on above: Performed By: #### L [id number] #### [facility] ([facility]) [address] [place] [address] RBC (Bld) [#/Vol] 4.76 10*6/uL Normal 4.20-5.70 [facility] Comment on above: Performed By: #### L [id number] #### [facility] ([facility]) [address] [place] [address] WBC (Bld) [#/Vol] 8.22 10*3/uL Normal 4.00-10.60 [facility] Comment on above: Performed By: #### L [id number] #### [facility] ([facility]) [address] [place] [address] MAGNESIUMon 10-09-2024 Magnesium [Mass/Vol] 2.0 mg/dL Normal 1.9-2.7 [facility] Comment on above: Performed By: #### L [id number] #### [facility] ([facility]) [address] [place] [address] BLOOD CULTUREon 10-08-2024 Bacteria identified Cx Nom (Bld) No growth at 5 days Normal [facility] Comment on above: Performed By: #### L [id number] ####[facility] ([facility])[place] [address] Order Comment: From a different site than #1. Performed By: #### L [id number] #### [facility] ([facility]) [place] [address] C-REACTIVE PROTEINon 025 C REACTIVE PROTEIN (MG/L) IN SER/PLAS 26.6 mg/L High <=5.0 [facility] Comment on above: Result Comment: Test ing performed using a new methodology, turbidimetry. Normal ranges have been updated. Old normal range was <8 mg/L. Performed By: #### L [id number] ####[facility] ([facility])[address] [place] [address] CBC WITH AUTO DIFFERENTIALon 10-08-2024 Basophils (Bld) [#/Vol] 0.06 10*3/uL Normal 0.00-0.20 [facility] Comment on above: Performed By: #### L [id number] #### [facility] ([facility]) [address] [place] [address] Basophils/100 WBC (Bld) 0.8 % Normal 0.0-1.0 [facility] Comment on above: Performed By: #### L [id number] #### [facility] ([facility]) [address] [place] [address] Eosinophils (Bld) [#/Vol] 0.17 10*3/uL Normal 0.00-0.50 [facility] Comment on above: Performed By: #### L [id number] #### [facility] ([facility]) [address] [place] [address] Eosinophils/100 WBC (Bld) 2.3 % Normal 0.0-6.0 [facility] Comment on above: Performed By: #### L [id number] #### [facility] ([facility]) [address] [place] [address] Erythrocyte distribution width (RBC) [Ratio] 16.0 % High 11.5-15.0 [facility] Comment on above: Performed By: #### L [id number] #### [facility] ([facility]) [address] [place] [address] ERYTHROCYTE MEAN CORPUSCULAR HEMOGLOBIN CONCENTRATION (G/DL) BY AUTOMATED 30.3 g/dL Low 32.0-35.0 [facility] Comment on above: Performed By: #### L [id number] #### [facility] ([facility]) [address] [place] [address] Hematocrit (Bld) [Volume fraction] 40.9 % Normal 39.0-55.0 [facility] Comment on above: Performed By: #### L [id number] #### [facility] ([facility]) [address] [place] [address] Hemoglobin (Bld) [Mass/Vol] 12.4 g/dL Low 13.0-17.0 [facility] Comment on above: Performed By: #### L [id number] #### [facility] ([facility]) [address] [place] [address] Immature granulocytes (Bld) [#/Vol] 0.10 10*3/uL Normal 0.00-0.20 [facility] Comment on above: Performed By: #### L [id number] #### [facility] ([facility]) [address] [place] [address] Immature granulocytes/100 WBC (Bld) 1.4 % High 0.0-1.0 [facility] Comment on above: Performed By: #### L [id number] #### [facility] ([facility]) [address] [place] [address] Lymphocytes (Bld) [#/Vol] 0.73 10*3/uL Low 1.20-4.00 [facility] Comment on above: Performed By: #### L [id number] #### [facility] ([facility]) [address] [place] [address] Lymphocytes/100 WBC (Bld) 10.0 % Low 20.0-45.0 [facility] Comment on above: Performed By: #### L [id number] #### [facility] ([facility]) [address] [place] [address] MCH (RBC) [Entitic mass] 26.7 pg Low 27.0-33.0 [facility] Comment on above: Performed By: #### L [id number] #### [facility] ([facility]) [address] [place] [address] MCV (RBC) [Entitic vol] 88.0 fL Normal 82.0-98.0 [facility] Comment on above: Performed By: #### L [id number] #### [facility] ([facility]) [address] [place] [address] Monocytes (Bld) [#/Vol] 0.52 10*3/uL Normal 0.10-1.00 [facility] Comment on above: Performed By: #### L [id number] #### [facility] ([facility]) [address] [place] [address] Monocytes/100 WBC (Bld) 7.1 % Normal 5.0-12.0 [facility] Comment on above: Performed By: #### L [id number] #### [facility] ([facility]) [address] [place] [address] Neutrophils (Bld) [#/Vol] 5.73 10*3/uL Normal 1.60-7.60 [facility] Comment on above: Performed By: #### L [id number] #### [facility] ([facility]) [address] [place] [address] Neutrophils/100 WBC (Bld) 78.4 % High 40.0-72.0 [facility] Comment on above: Performed By: #### L [id number] #### [facility] ([facility]) [address] [place] [address] NRBC (PER 100 WBCS) BY AUTOMATED COUNT 0.0 % Normal 0 [facility] Comment on above: Performed By: #### L [id number] #### [facility] ([facility]) [address] [place] [address] PLATELETS (10*3/UL) IN BLOOD AUTOMATED COUNT 231 10*3/uL Normal 150-400 [facility] Comment on above: Performed By: #### L [id number] #### [facility] ([facility]) [address] [place] [address] RBC (Bld) [#/Vol] 4.65 10*6/uL Normal 4.20-5.70 [facility] Comment on above: Performed By: #### L [id number] #### [facility] ([facility]) [address] [place] [address] WBC (Bld) [#/Vol] 7.31 10*3/uL Normal 4.00-10.60 [facility] Comment on above: Performed By: #### L [id number] #### [facility] ([facility]) [address] [place] [address] COMPREHENSIVE METABOLIC PANE Clif 10-08-2024 Albumin [Mass/Vol] 3.7 g/dL Normal 3.5-5.7 [facility] Comment on above: Performed By: #### L [id number] #### [facility] ([facility]) [address] [place] [address] ALP [Catalytic activity/Vol] 130 U/L High 34-104 [facility] Comment on above: Performed By: #### L [id number] #### [facility] ([facility]) [address] [place] [address] ALT [Catalytic activity/Vol] 14 U/L Normal 7-52 [facility] Comment on above: Performed By: #### L [id number] #### [facility] ([facility]) [address] [place] [address] Anion gap [Moles/Vol] 9 mmol/L Normal 7-20 [facility] Comment on above: Performed By: #### L [id number] #### [facility] ([facility]) [address] [place] [address] AST [Catalytic activity/Vol] 19 U/L Normal 13-39 [facility] Comment on above: Performed By: #### L [id number] #### [facility] ([facility]) [address] [place] [address] Bilirubin [Mass/Vol] 0.7 mg/dL Normal 0.3-1.0 [facility] Comment on above: Performed By: #### L [id number] #### [facility] ([facility]) [address] [place] [address] Calcium [Mass/Vol] 9.5 mg/dL Normal 8.6-10.3 [facility] Comment on above: Performed By: #### L [id number] #### [facility] ([facility]) [address] [place] [address] Chloride [Moles/Vol] 99 mmol/L Normal 98-107 [facility] Comment on above: Performed By: #### L [id number] #### [facility] ([facility]) [address] [place] [address] CO2 [Moles/Vol] 37 mmol/L High 21-31 [facility] Comment on above: Performed By: #### L [id number] #### [facility] ([facility]) [address] [place] [address] Creatinine [Mass/Vol] 0.96 mg/dL Normal 0.70-1.30 [facility] Comment on above: Performed By: #### L [id number] #### [facility] ([facility]) [address] [place] [address] GLOMERULAR FILTRATION RATE ML/MIN/1.73 SQ M.PREDICTED 93.3 mL/min/1.73m*2 Normal >60.0 [facility] Comment on above: Result Comment: [facility]???s estimated glomerular filtration rate (eGFR) will [...] individuals. Performed By: #### L [id number] #### [facility] ([facility]) [address] [place] [address] Glucose [Mass/Vol] 83 mg/dL Normal 70-100 [facility] Comment on above: Performed By: #### L [id number] #### [facility] ([facility]) [address] [place] [address] Potassium [Moles/Vol] 4.2 mmol/L Normal 3.5-5.1 [facility] Comment on above: Performed By: #### L [id number] #### [facility] ([facility]) [address] [place] [address] Protein [Mass/Vol] 7.1 g/dL Normal 6.0-8.3 [facility] Comment on above: Performed By: #### L [id number] #### [facility] ([facility]) [address] [place] [address] Sodium [Moles/Vol] 141 mmol/L Normal 136-145 [facility] Comment on above: Performed By: #### L [id number] #### [facility] ([facility]) [address] [place] [address] Urea nitrogen [Mass/Vol] 10 mg/dL Normal 7- [facility] Comment on above: Performed By: #### L [id number] #### [facility] ([facility]ER) [address] [place] [address] UREA NITROGEN/CREATININE (MASS RATIO) IN SER/PLAS 10.4 Normal [facility] Comment on above: Performed By: #### L [id number] #### [facility] ([facility]) [address] [place] [address] CONSULTon 10-08-2024 CONSULT -- Attestation signed by [...] ta (more content not included)... Normal [facility] EDNURSon 10-08-2024 EDNURS Arrival: transfer fr [facility] ED Complaint: cellulitis to right leg, hx surgery on 09/24 Notes: patient arrived on this day via [facility] from [place] [facility] for pain to the right leg. Previous surgery at [facility] on 09/24 for right leg tib/fib fracture. Per [place] staff, patient arrived with increased pain, redness and swelling to right lower extremity. Ultrasound was negative for DVT. [place] ED treated for cellulitis, administered dose of zosyn at 0330, vancomycin at 2030 and 5mg oxycontin at 1930. Patient endorsed non-compliance, did not have post surgery follow up appointment and has been putting weight on leg. History of hypertension, patient O2 desat to 88% when sleeping. Per [place], patient non-compliant with bipap. Upon arrival, patient endorsed pain 8/10 and nausea. Patient denied chest pain, fever, chills and shortness of breath. Normal [facility] EDPROVon 10-08-2024 EDPROV [facility] [address] [facility] [address] EMERGENCY DEPARTMENT ENCOUNTER CHIEF COMPLAINT Chief Complaint Patient presents with Cellulitis HISTORY OF PRESENT ILLNESS Matty Garces is a 54 y.o. male who presents with a Chief Complaint Patient presents with Cellulitis REVIEW OF SYSTEMS Review of Systems Musculoskeletal: Positive for arthralgias. Skin: Positive for rash. All other systems reviewed and are negative. The patient is a 54-year-old male who was transferred from [facility] for cellulitis involving recent right lower extremity surgery. Patient had surgical pair of a tibia fracture on September 24. The patient states that he went to [place] emergency department today due to increased swelling. Patient was given Zosyn and vancomycin at [facility]. Patient states that he is having [...] B (more content not included)... Normal [facility] MAGNESIUMon 10-08-2024 Magnesium [Mass/Vol] 1.8 mg/dL Low 1.9-2.7 [facility] Comment on above: Performed By: #### L [id number] #### [facility] ([facility]) [address] [place] [address] SEDIMENTATION RATEon 025 SEDIMENTATION RATE, ERYTHROCYTE 56 mm/hr High <20 [facility] Comment on above: Performed By: #### L [id number] #### [facility] ([facility]) [address] [place] [address] VITAMIN D 25 HYDROXYon 10-08 CALCIDIOL (25 [place] VITAMIN D3) (NG/ML) IN SER/PLAS 37.0 ng/mL Normal 30.0-80.0 [facility] Comment on above: Result Comment: >80. 0 Toxicity possible Performed By: #### L [id number] ####[facility] (BE[facility]ER)[address] [place] [address] 36on 10-04-2024 36 [facility] call ed and is seeing the patient for wound care, PT, and OT. Seeing patient a couple times a week could specify a number of times. States is also doing dressing changes. [phone] Normal [facility] Telephoneon 10-04-2024 Telephone [phone] Francisco Javier Garces 1970 M Date Provider Department Center 10/04/2024 [id number]-SOPKTAMATT MCCORMACK [facility] No family history on file Reason for Visit and Comments: Information [Other] Normal [facility] 36on 09-29-2024 36 Patient in home PT called and wanted to confirm if Dr. Hahn does the in home therapy approvals/orders or if he had to follow up with his PCP, advertising copywriter informed her he does. Patient is scheduled for 10/05/24. Normal [facility] BASIC METABOLIC PANELon 09-13 Anion gap [Moles/Vol] 7 mmol/L Normal 7-20 [facility] Comment on above: Performed By: #### L [id number] ####[facility] ([facility])[address] [place] [address] Calcium [Mass/Vol] 9.6 mg/dL Normal 8.6-10.3 [facility] Comment on above: Performed By: #### L [id number] ####[facility] ([facility])[address] [place] [address] Chloride [Moles/Vol] 98 mmol/L Normal 98-107 [facility] Comment on above: Performed By: #### L [id number] ####[facility] ([facility]ER)[address] [place] [address] CO2 [Moles/Vol] 34 mmol/L High 21-31 [facility] Comment on above: Performed By: #### L [id number] ####[facility] ([facility]ER)[address] [place] [address] Creatinine [Mass/Vol] 0.92 mg/dL Normal 0.70-1.30 [facility] Comment on above: Performed By: #### L [id number] ####[facility] ([facility]ER)[address] [place] [address] GLOMERULAR FILTRATION RATE ML/MIN/1.73 SQ M.PREDICTED 98.9 mL/min/1.73m*2 Normal >60.0 [facility] Comment on above: Result Comment: [facility]???s estimated glomerular filtration rate (eGFR) will [...] of individuals. Performed By: #### L [id number] ####[facility] ([facility])[address] [place] [address] Glucose [Mass/Vol] 99 mg/dL Normal 70-100 [facility] Comment on above: Performed By: #### L [id number] ####[facility] ([facility])[address] [place] [address] Potassium [Moles/Vol] 4.3 mmol/L Normal 3.5-5.1 [facility] Comment on above: Performed By: #### L [id number] ####[facility] ([facility])[address] [place] [address] Sodium [Moles/Vol] 135 mmol/L Low 136-145 [facility] Comment on above: Performed By: #### L [id number] ####[facility] ([facility])[address] [place] [address] Urea nitrogen [Mass/Vol] 20 mg/dL Normal 7-25 [facility] Comment on above: Performed By: #### L [id number] ####[facility] ([facility])[address] [place] [address] UREA NITROGEN/CREATININE (MASS RATIO) IN SER/PLAS 21.7 Normal [facility] Comment on above: Performed By: #### L [id number] ####[facility] ([facility])[address] [place] [address] CBCon 09-28-2024 Erythrocyte distribution width (RBC) [Ratio] 15.3 % High 11.5-15.0 [facility] Comment on above: Performed By: #### L [id number] #### [facility]) [address] [place] [address] ERYTHROCYTE MEAN CORPUSCULAR HEMOGLOBIN CONCENTRATION (G/DL) BY AUTOMATED 30.9 g/dL Low 32.0-35.0 [facility] Comment on above: Performed By: #### L [id number] #### [facility] ([facility]) [address] [place] [address] Hematocrit (Bld) [Volume fraction] 44.4 % Normal 39.0-55.0 [facility] Comment on above: Performed By: #### L [id number] #### [facility] ([facility]) [address] [place] [address] Hemoglobin (Bld) [Mass/Vol] 13.7 g/dL Normal 13.0-17.0 [facility] Comment on above: Performed By: #### L [id number] #### [facility] ([facility]) [address] [place] [address] MCH (RBC) [Entitic mass] 26.5 pg Low 27.0-33.0 [facility] Comment on above: Performed By: #### L [id number] #### [facility] ([facility]) [address] [place] [address] MCV (RBC) [Entitic vol] 85.9 fL Normal 82.0-98.0 [facility] Comment on above: Performed By: #### L [id number] #### [facility] ([facility]) [address] [place] [address] PLATELETS (10*3/UL) IN BLOOD AUTOMATED COUNT 208 10*3/uL Normal 150-400 [facility] Comment on above: Performed By: #### L [id number] #### [facility] ([facility]) [address] [place] [address] RBC (Bld) [#/Vol] 5.17 10*6/uL Normal 4.20-5.70 [facility] Comment on above: Performed By: #### L [id number] #### [facility] ([facility]) [address] [place] [address] WBC (Bld) [#/Vol] 10.65 10*3/uL High 4.00-10.60 [facility] Comment on above: Performed By: #### L [id number] #### [facility] ([facility]ER) [address] [place] [address] CONSULTon 09-28-2024 CONSULT Patient tried CPAP i [...] Yes, Sleep Time Spent: 20 Normal [facility] DSon 09-28-2024 DS Admission Admitted 09/23/2024 [...] Medications These medications were sent to [facility] - [place], [place] - [address], [facility] [address] acetaminophen 500 mg tablet aspirin 81 mg [...] team was informed at approximately 1730 per [facility] that patient went into a-flutter and sustained for approximately 2 hours fro (more content not included)... [facility] EDPROVon 09-28-2024 EDPROV This report has been cancelled. [facility] Letter (Out)on 09-28-2024 Letter (Out) [id number] Francisco Javier Garces 1970 M Date Provider Department Center 09/28/2024 [id number], GENERIC PRO*INIT None No family history on file Normal [facility] MAGNESIUMon 09-28-2024 Magnesium [Mass/Vol] 2.0 mg/dL Normal 1.9-2.7 [facility] Comment on above: Performed By: #### L [id number] #### [facility] (BEAKER) [address] [place] [address] NURSNOTEon 09-28-2024 NURSNOTE PT signed AMA paperwork with trama team. Pt left with belongings and family. AMA paperwork in patient chart. Normal [facility] PHOSPHORUSon 09-28-2024 Magnesium [Mass/Vol] 3.3 mg/dL Normal 2.5-5.0 [facility] Comment on above: Performed By: #### L [id number] ####[facility] ([facility])[address] [place] [address] 30on 09-27-2024 30 The patient is Moderately [...] include continue medications as ordered Normal [facility] 30 Daily Case Managemen t Update Multidisciplinary rounds have been completed. Barriers to Discharge: Pending clinical course; POD3 IMN; 4L NC. Patient refusing CPaP at rest/sleep, Pulm brennen consulted and following. PT/OT recommending IPR, PMR consulted and recommend IPR. Patient and spouse would like to go home with [facility]. Referrals sent, pending accepting [facility] agency>>Radha Mendenhall [facility] accepting. NURY recommended--ariadna mo, bedside commode--scripts written and face to face notes signed.>>need sent to [employer] for fulfillment. SW following. Diet: Dietary Orders [...] R tib fib facrture Level of Consultation Private Equity Associate assumes full responsibility 09/23/24 1231 09/23/24 1221 [...] skeletal surgical procedure 09/24/24 1242 Normal [facility] 30 The patient is Moderately Stable [...] pain as ordered maintain safety precautions. Normal [facility] 30 The patient is Moderately Stable [...] and behaviors that affect risk of falls [place] fall precautions as indicated by assessment Educate patient/family on patient safety, including physical limitations Instruct patient to call for assistance with activity based on assessment Modify environment to reduce risk of injury Normal [facility] BASIC METABOLIC PANELon 09-13 Anion gap [Moles/Vol] 9 mmol/L Normal 7-20 [facility] Comment on above: Performed By: #### L [id number] #### [facility] ([facility]AKER) [address] [place] [address] Calcium [Mass/Vol] 9.3 mg/dL Normal 8.6-10.3 [facility] Comment on above: Performed By: #### L [id number] #### [facility] (BEAKER) [address] [place] [address] Chloride [Moles/Vol] 99 mmol/L Normal 98-107 [facility] Comment on above: Performed By: #### L [id number] #### [facility] (BEAKER) [address] [place] [address] CO2 [Moles/Vol] 33 mmol/L High 21-31 [facility] Comment on above: Performed By: #### L [id number] #### [facility] ([facility]) [address] [place] [address] Creatinine [Mass/Vol] 0.89 mg/dL Normal 0.70-1.30 [facility] Comment on above: Performed By: #### L [id number] #### [facility] ([facility]) [address] [place] [address] GLOMERULAR FILTRATION RATE ML/MIN/1.73 SQ M.PREDICTED 101.8 mL/min/1.73m*2 Normal >60.0 [facility] Comment on above: Result Comment: The [facility]???s estimated glomerular filtration rate (eGFR) will [...] individuals. Performed By: #### L [id number] #### [facility] ([facility]) [address] [place] [address] Glucose [Mass/Vol] 95 mg/dL Normal 70-100 [facility] Comment on above: Performed By: #### L [id number] #### [facility] ([facility]) [address] [place] [address] Potassium [Moles/Vol] 4.1 mmol/L Normal 3.5-5.1 [facility] Comment on above: Performed By: #### L [id number] #### [facility] ([facility]) [address] [place] [address] Sodium [Moles/Vol] 137 mmol/L Normal 136-145 [facility] Comment on above: Performed By: #### L [id number] #### [facility] (BEAKER) [address] [place] [address] Urea nitrogen [Mass/Vol] 17 mg/dL Normal 7-25 [facility] Comment on above: Performed By: #### L [id number] #### [facility] [address] [place] [address] UREA NITROGEN/CREATININE (MASS RATIO) IN SER/PLAS 19.1 Normal [facility] Comment on above: Performed By: #### L [id number] #### [facility] [address] [place] [address] CBCon 09-27-2024 Erythrocyte distribution width (RBC) [Ratio] 15.4 % High 11.5-15.0 [facility] Comment on above: Performed By: #### L [id number] #### [facility] ([facility]) [address] [place] [address] ERYTHROCYTE MEAN CORPUSCULAR HEMOGLOBIN CONCENTRATION (G/DL) BY AUTOMATED 30.8 g/dL Low 32.0-35.0 [facility] Comment on above: Performed By: #### L [id number] #### [facility] ([facility]) [address] [place] [address] Hematocrit (Bld) [Volume fraction] 45.5 % Normal 39.0-55.0 [facility] Comment on above: Performed By: #### L [id number] #### [facility] [address] [place] [address] Hemoglobin (Bld) [Mass/Vol] 14.0 g/dL Normal 13.0-17.0 [facility] Comment on above: Performed By: #### L [id number] #### [facility] [address] [place] [address] MCH (RBC) [Entitic mass] 26.5 pg Low 27.0-33.0 [facility] Comment on above: Performed By: #### L [id number] #### [facility] (BEAKER) [address] [place] [address] MCV (RBC) [Entitic vol] 86.0 fL Normal 82.0-98.0 [facility] Comment on above: Performed By: #### L [id number] #### [facility] ([facility]) [address] [place] [address] PLATELETS (10*3/UL) IN BLOOD AUTOMATED COUNT 199 10*3/uL Normal 150-400 [facility] Comment on above: Performed By: #### L [id number] #### [facility] ([facility]) [address] [place] [address] RBC (Bld) [#/Vol] 5.29 10*6/uL Normal 4.20-5.70 [facility] Comment on above: Performed By: #### L [id number] #### [facility] ([facility]) [address] [place] [address] WBC (Bld) [#/Vol] 10.21 10*3/uL Normal 4.00-10.60 [facility] Comment on above: Performed By: #### L [id number] #### [facility] ([facility]) [address] [place] [address] MAGNESIUMon 09-27-2024 Magnesium [Mass/Vol] 1.9 mg/dL Normal 1.9-2.7 [facility] Comment on above: Performed By: #### L [id number] #### [facility] ([facility]) [address] [place] [address] PHOSPHORUSon 09-27-2024 Magnesium [Mass/Vol] 4.4 mg/dL Normal 2.5-5.0 [facility] Comment on above: Performed By: #### L [id number] #### [facility] ([facility]) [address] [place] [address] VENOUS BLOOD GAS WITH IONIZE D CALCIUMon 09-27-2024 Base excess Calc (BldV) [Moles/Vol] 9.2 mmol/L Normal [facility] Comment on above: Performed By: #### L [id number] ####[facility] [id number] [place] [address] [facility] CALCIUM IONIZED (MMOL/L) IN BLOOD 1.27 mmol/L Normal 1.15-1.33 [facility] Comment on above: Performed By: #### L [id number] ####[facility] [id number] [place] [address] [facility] CO2 (BldV) [Partial pressure] 50 mm[Hg] Normal 40-50 [facility] Comment on above: Performed By: #### L [id number] ####[facility] [id number] [place] [address] [facility] HCO3 (Bld) [Moles/Vol] 34.8 mmol/L Normal [facility] Comment on above: Performed By: #### L [id number] ####[facility] [id number] [place] [address] [facility] Oxygen (BldV) [Partial pressure] 53 mm[Hg] High 35-45 [facility] Comment on above: Performed By: #### L [id number] ####[facility] [id number] [place] [address] [facility] OXYGEN SATURATION (%) IN VENOUS BLOOD 87.1 % High 65.0-75.0 [facility] Comment on above: Performed By: #### L [id number] ####[facility] [id number] [place] [address] [facility] PH OF VENOUS BLOOD 7.45 High 7.31-7.41 [facility] Comment on above: Performed By: #### L [id number] ####[facility] [id number] [place] [address] [facility] BASIC METABOLIC PANELon 09-13 Anion gap [Moles/Vol] 8 mmol/L Normal 7-20 [facility] Comment on above: Performed By: #### L [id number] #### [facility] ([facility]AKER) [address] [place] [address] Calcium [Mass/Vol] 9.4 mg/dL Normal 8.6-10.3 [facility] Comment on above: Performed By: #### L [id number] #### [facility] ([facility]) [address] [place] [address] Chloride [Moles/Vol] 99 mmol/L Normal 98-107 [facility] Comment on above: Performed By: #### L [id number] #### [facility] ([facility]) [address] [place] [address] CO2 [Moles/Vol] 36 mmol/L High 21-31 [facility] Comment on above: Performed By: #### L [id number] #### [facility] ([facility]) [address] [place] [address] Creatinine [Mass/Vol] 0.91 mg/dL Normal 0.70-1.30 [facility] Comment on above: Performed By: #### L [id number] #### [facility] ([facility]) [address] [place] [address] GLOMERULAR FILTRATION RATE ML/MIN/1.73 SQ M.PREDICTED 100.2 mL/min/1.73m*2 Normal >60.0 [facility] Comment on above: Result Comment: The [facility]???s estimated glomerular filtration rate (eGFR) will [...] individuals. Performed By: #### L [id number] #### [facility] ([facility]) [address] [place] [address] Glucose [Mass/Vol] 85 mg/dL Normal 70-100 [facility] Comment on above: Performed By: #### L [id number] #### [facility] ([facility]) [address] [place] [address] Potassium [Moles/Vol] 3.8 mmol/L Normal 3.5-5.1 [facility] Comment on above: Performed By: #### L [id number] #### [facility] ([facility] [address] [place] [address] Sodium [Moles/Vol] 139 mmol/L Normal 136-145 [facility] Comment on above: Performed By: #### L [id number] #### [facility] ([facility]) [address] [place] [address] Urea nitrogen [Mass/Vol] 18 mg/dL Normal 7-25 [facility] Comment on above: Performed By: #### L [id number] #### [facility] ([facility]) [address] [place] [address] UREA NITROGEN/CREATININE (MASS RATIO) IN SER/PLAS 19.8 Normal [facility] Comment on above: Performed By: #### L [id number] #### [facility] ([facility]) [address] [place] [address] CBCon 09-26-2024 Erythrocyte distribution width (RBC) [Ratio] 15.4 % High 11.5-15.0 [facility] Comment on above: Performed By: #### L [id number] #### [facility] ([facility] [address] [place] [address] ERYTHROCYTE MEAN CORPUSCULAR HEMOGLOBIN CONCENTRATION (G/DL) BY AUTOMATED 31.1 g/dL Low 32.0-35.0 [facility] Comment on above: Performed By: #### L [id number] #### [facility] ([facility]) [address] [place] [address] Hematocrit (Bld) [Volume fraction] 43.8 % Normal 39.0-55.0 [facility] Comment on above: Performed By: #### L [id number] #### [facility] ([facility] [address] [place] [address] Hemoglobin (Bld) [Mass/Vol] 13.6 g/dL Normal 13.0-17.0 [facility] Comment on above: Performed By: #### L [id number] #### [facility] ([facility]) [address] [place] [address] MCH (RBC) [Entitic mass] 26.3 pg Low 27.0-33.0 [facility] Comment on above: Performed By: #### L [id number] #### [facility] ([facility]) [address] [place] [address] MCV (RBC) [Entitic vol] 84.7 fL Normal 82.0-98.0 [facility] Comment on above: Performed By: #### L [id number] #### [facility] ([facility]) [address] [place] [address] PLATELETS (10*3/UL) IN BLOOD AUTOMATED COUNT 186 10*3/uL Normal 150-400 [facility] Comment on above: Performed By: #### L [id number] #### [facility] ([facility]) [address] [place] [address] RBC (Bld) [#/Vol] 5.17 10*6/uL Normal 4.20-5.70 [facility] Comment on above: Performed By: #### L [id number] #### [facility] ([facility]) [address] [place] [address] WBC (Bld) [#/Vol] 9.63 10*3/uL Normal 4.00-10.60 [facility] Comment on above: Performed By: #### L [id number] #### [facility] ([facility]) [address] [place] [address] MAGNESIUMon 09-26-2024 Magnesium [Mass/Vol] 1.9 mg/dL Normal 1.9-2.7 [facility] Comment on above: Performed By: #### L [id number] #### [facility] ([facility] [address] [place] [address] PHOSPHORUSon 09-26-2024 Magnesium [Mass/Vol] 2.6 mg/dL Normal 2.5-5.0 [facility] Comment on above: Performed By: #### L [id number] #### [facility] (BEAKER) [address] [place] [address] 30on 09-25-2024 30 Problem: Pain - Adul [...] include consult for respiratory therapy. Normal [facility] 30 Daily Case Managemen t Update [...] spouse would like to go home with [facility]. Referrals sent, pending accepting [facility] agency. DME recommended--gabrielle khalil, ariadna kilgore, [...] R tib fib facrture Level of Consultation Private Equity Associate assumes full responsibility 09/23/24 1231 09/23/24 1221 [...] skeletal surgical procedure 09/24/24 1242 Normal [facility] BASIC METABOLIC PANELon 09-13 Anion gap [Moles/Vol] 9 mmol/L Normal 7-20 [facility] Comment on above: Performed By: #### L [id number] ####[facility] ([facility])[address] [facility] [place] [address] Calcium [Mass/Vol] 8.9 mg/dL Normal 8.6-10.3 [facility] Comment on above: Performed By: #### L [id number] ####[facility] ([facility] [place] [address] Chloride [Moles/Vol] 97 mmol/L Low 98-107 [facility] Comment on above: Performed By: #### L [id number] ####[facility] (BEAKER)[address] [facility] [place] [address] CO2 [Moles/Vol] 32 mmol/L High 21-31 [facility] Comment on above: Performed By: #### L [id number] ####[facility] (BEAKER)[address] [facility] [place] [address] Creatinine [Mass/Vol] 0.91 mg/dL Normal 0.70-1.30 [facility] Comment on above: Performed By: #### L [id number] ####[facility] ([facility])[address] [place] [address] GLOMERULAR FILTRATION RATE ML/MIN/1.73 SQ M.PREDICTED 100.2 mL/min/1.73m*2 Normal >60.0 [facility] Comment on above: Result Comment: The [facility]???s estimated glomerular filtration rate (eGFR) will [...] of individuals. Performed By: #### L [id number] ####[facility] ([facility])[address] [place] [address] Glucose [Mass/Vol] 141 mg/dL High 70-100 [facility] Comment on above: Performed By: #### L [id number] ####[facility] ([facility])[address] [place] [address] Potassium [Moles/Vol] 4.2 mmol/L Normal 3.5-5.1 [facility] Comment on above: Performed By: #### L [id number] ####[facility] ([facility])[address] [place] [address] Sodium [Moles/Vol] 134 mmol/L Low 136-145 [facility] Comment on above: Performed By: #### L [id number] ####[facility] [place] [address] Urea nitrogen [Mass/Vol] 15 mg/dL Normal 7-25 [facility] Comment on above: Performed By: #### L [id number] ####[facility] ([facility] [place] [address] UREA NITROGEN/CREATININE (MASS RATIO) IN SER/PLAS 16.5 Normal [facility] Comment on above: Performed By: #### L [id number] ####[facility] (BEAKER)[address] [place] [address] CBCon 09-25-2024 Erythrocyte distribution width (RBC) [Ratio] 14.9 % Normal 11.5-15.0 [facility] Comment on above: Performed By: #### L [id number] #### [facility] ([facility]) [address] [place] [address] ERYTHROCYTE MEAN CORPUSCULAR HEMOGLOBIN CONCENTRATION (G/DL) BY AUTOMATED 31.1 g/dL Low 32.0-35.0 [facility] Comment on above: Performed By: #### L [id number] #### [facility] ([facility]) [address] [place] [address] Hematocrit (Bld) [Volume fraction] 45.4 % Normal 39.0-55.0 [facility] Comment on above: Performed By: #### L [id number] #### [facility] ([facility]) [address] [place] [address] Hemoglobin (Bld) [Mass/Vol] 14.1 g/dL Normal 13.0-17.0 [facility] Comment on above: Performed By: #### L [id number] #### [facility] ([facility]) [address] [place] [address] MCH (RBC) [Entitic mass] 26.3 pg Low 27.0-33.0 [facility] Comment on above: Performed By: #### L [id number] #### [facility] ([facility]) [address] [place] [address] MCV (RBC) [Entitic vol] 84.5 fL Normal 82.0-98.0 [facility] Comment on above: Performed By: #### L [id number] #### [facility] ([facility]) [address] [place] [address] PLATELETS (10*3/UL) IN BLOOD AUTOMATED COUNT 205 10*3/uL Normal 150-400 [facility] Comment on above: Performed By: #### L [id number] #### [facility] ([facility]) [address] [place] [address] RBC (Bld) [#/Vol] 5.37 10*6/uL Normal 4.20-5.70 [facility] Comment on above: Performed By: #### L [id number] #### [facility] ([facility]) [address] [place] [address] WBC (Bld) [#/Vol] 14.37 10*3/uL High 4.00-10.60 [facility] Comment on above: Performed By: #### L [id number] #### [facility] ([facility]) [address] [place] [address] MAGNESIUMon 09-25-2024 Magnesium [Mass/Vol] 2.1 mg/dL Normal 1.9-2.7 [facility] Comment on above: Performed By: #### L [id number] ####[facility] ([facility])[address] [place] [address] NURSNOTEon 09-25-2024 NURSNOTE Trauma RN met adrian dunham at bedside and provided the Trauma Services Patient Brochure. Patient will follow-up with Orthopedics 10/05/2024 at 0900. No further needs currently. Normal [facility] PHOSPHORUSon 09-25-2024 Magnesium [Mass/Vol] 2.8 mg/dL Normal 2.5-5.0 [facility] Comment on above: Performed By: #### L [id number] ####[facility] ([facility])[address] [place] [address] 30on 09-24-2024 30 The patient is Moderately [...] from fall injury Outcome: Progressing Normal [facility] BASIC METABOLIC PANELon 09-13 Anion gap [Moles/Vol] 8 mmol/L Normal 7-20 [facility] Comment on above: Performed By: #### L [id number] ####[facility] ([facility])[address] [place] [address] Calcium [Mass/Vol] 9.1 mg/dL Normal 8.6-10.3 [facility] Comment on above: Performed By: #### L [id number] ####[facility] ([facility])[address] [place] [address] Chloride [Moles/Vol] 98 mmol/L Normal 98-107 [facility] Comment on above: Performed By: #### L [id number] ####[facility] ([facility])[address] [place] [address] CO2 [Moles/Vol] 35 mmol/L High 21-31 [facility] Comment on above: Performed By: #### L [id number] ####[facility] ([facility])[address] [place] [address] Creatinine [Mass/Vol] 1.02 mg/dL Normal 0.70-1.30 [facility] Comment on above: Performed By: #### L [id number] ####[facility] ([facility])[address] [place] [address] GLOMERULAR FILTRATION RATE ML/MIN/1.73 SQ M.PREDICTED 87.3 mL/min/1.73m*2 Normal >60.0 [facility] Comment on above: Result Comment: The [facility]???s estimated glomerular filtration rate (eGFR) will [...] of individuals. Performed By: #### L [id number] ####[facility] ([facility])[address] [place] [address] Glucose [Mass/Vol] 103 mg/dL High 70-100 [facility] Comment on above: Performed By: #### L [id number] ####[facility] (BEAKER)[address] [place] [address] Potassium [Moles/Vol] 4.2 mmol/L Normal 3.5-5.1 [facility] Comment on above: Performed By: #### L [id number] ####[facility] (BEAKER)[address] [place] [address] Sodium [Moles/Vol] 137 mmol/L Normal 136-145 [facility] Comment on above: Performed By: #### L [id number] ####[facility] ([facility] [place] [address] Urea nitrogen [Mass/Vol] 11 mg/dL Normal 7-25 [facility] Comment on above: Performed By: #### L [id number] ####[facility] ([facility])[address] [place] [address] UREA NITROGEN/CREATININE (MASS RATIO) IN SER/PLAS 10.8 Normal [facility] Comment on above: Performed By: #### L [id number] ####[facility] ([facility] [place] [address] CBCon 09-24-2024 Erythrocyte distribution width (RBC) [Ratio] 15.5 % High 11.5-15.0 [facility] Comment on above: Performed By: #### L [id number] #### [facility] ([facility] [address] [place] [address] ERYTHROCYTE MEAN CORPUSCULAR HEMOGLOBIN CONCENTRATION (G/DL) BY AUTOMATED 30.4 g/dL Low 32.0-35.0 [facility] Comment on above: Performed By: #### L [id number] #### [facility] [address] [place] [address] Hematocrit (Bld) [Volume fraction] 46.4 % Normal 39.0-55.0 [facility] Comment on above: Performed By: #### L [id number] #### [facility] (BEAKER) [address] [place] [address] Hemoglobin (Bld) [Mass/Vol] 14.1 g/dL Normal 13.0-17.0 [facility] Comment on above: Performed By: #### L [id number] #### [facility] ([facility]) [address] [place] [address] MCH (RBC) [Entitic mass] 26.4 pg Low 27.0-33.0 [facility] Comment on above: Performed By: #### L [id number] #### [facility] ([facility]) [address] [place] [address] MCV (RBC) [Entitic vol] 86.7 fL Normal 82.0-98.0 [facility] Comment on above: Performed By: #### L [id number] #### [facility] ([facility]) [address] [place] [address] PLATELETS (10*3/UL) IN BLOOD AUTOMATED COUNT 175 10*3/uL Normal 150-400 [facility] Comment on above: Performed By: #### L [id number] #### [facility] ([facility]) [address] [place] [address] RBC (Bld) [#/Vol] 5.35 10*6/uL Normal 4.20-5.70 [facility] Comment on above: Performed By: #### L [id number] #### [facility] ([facility]) [address] [place] [address] WBC (Bld) [#/Vol] 7.56 10*3/uL Normal 4.00-10.60 [facility] Comment on above: Performed By: #### L [id number] #### [facility] ([facility]) [address] [place] [address] CONSULTon 09-24-2024 CONSULT Physical Medicine an d Rehabilitation Consult Note Patient not staffed by PM&R today due to surgery today for IMN placement. Our team will staff tomorrow, 09/25/23. Silvia Zaldivar MD Normal [facility] MAGNESIUMon 09-24-2024 Magnesium [Mass/Vol] 2.2 mg/dL Normal 1.9-2.7 [facility] Comment on above: Performed By: #### L [id number] #### [facility] [address] OPNOTEon 09-24-2024 OPNOTE -- Attestation signed by [...] Operative Note Date: 09/23/2024 - 09/24/2024 Location: [facility] Name: Matty Dunham Garces, : 1970, [...] by intramedullary implant with interlocking screws [CPT: 29660] Stress exam of right ankle under anesthesia [CPT: 79703] Intraoperative use of fluoroscopy less than 1 hour by physician [CPT: 73159] Surgeons Primary: Sandrine Hahn MD Resident - [...] mm x 34 mm interlocking screw Staff: Lithographic Etcher: Emi Francis RN Seat Cover Maker: CHARLINE Montejo Scrub Person: Araseli Butler CST Indications: Matty Garces is an 53 y.o. male who presented as a transfer from [facility] on 09/23/2024. Patient was transferred due to findings of a right distal third tibial shaft fracture after a fall in the shower. The fracture was closed and was subsequently reduced and splinted at [place] in a long-leg splint. Patient made stable [...] (more content not included)... Normal [facility] PHOSPHORUSon 09-24-2024 Magnesium [Mass/Vol] 4.0 mg/dL Normal 2.5-5.0 [facility] Comment on above: Performed By: #### L [id number] #### [facility] ([place]) [address] [place] [address] POCT GLUCOSE METER UNSOLICIT ED RESULTSon 09-24-2024 Glucose [Mass/Vol] 100 mg/dL Normal 70-105 [facility] Comment on above: Order Comment: Waive d Testing in the ED is performed under the ED CLIA certificate #[id number]. Result Comment: [email or web address] [email or web address] Performed By: #### L [id number] #### [facility] (BEAKER) [address] [place] [address] APTTon 09-23-2024 ACTIVATED PARTIAL THROMBOPLASTIN TIME IN PPP BY COAGULATION ASSAY 31.2 Seconds Normal 25.0-35.0 [facility] Comment on above: Result Comment: Clin ical significance of the APTT is questionable in the presence of heparin. Performed By: #### L [id number] ####[facility] (BEAKER)[address] [place] [address] CBC WITH AUTO DIFFERENTIALon 09-23-2024 Basophils (Bld) [#/Vol] 0.05 10*3/uL Normal 0.00-0.20 [facility] Comment on above: Performed By: #### L [id number] ####[facility] ([facility])[address] [place] [address] Basophils/100 WBC (Bld) 0.5 % Normal 0.0-1.0 [facility] Comment on above: Performed By: #### L [id number] ####[facility] ([facility])[address] [place] [address] Eosinophils (Bld) [#/Vol] 0.11 10*3/uL Normal 0.00-0.50 [facility] Comment on above: Performed By: #### L [id number] ####[facility] ([facility])[address] [place] [address] Eosinophils/100 WBC (Bld) 1.0 % Normal 0.0-6.0 [facility] Comment on above: Performed By: #### L [id number] ####[facility] ([facility])[address] [place] [address] Erythrocyte distribution width (RBC) [Ratio] 15.9 % High 11.5-15.0 [facility] Comment on above: Performed By: #### L [id number] ####[facility] ([facility])[address] [place] [address] ERYTHROCYTE MEAN CORPUSCULAR HEMOGLOBIN CONCENTRATION (G/DL) BY AUTOMATED 30.3 g/dL Low 32.0-35.0 [facility] Comment on above: Performed By: #### L [id number] ####[facility] ([facility])[address] [place] [address] Hematocrit (Bld) [Volume fraction] 47.8 % Normal 39.0-55.0 [facility] Comment on above: Performed By: #### L [id number] ####[facility] (BEAKER)[address] [place] [address] Hemoglobin (Bld) [Mass/Vol] 14.5 g/dL Normal 13.0-17.0 [facility] Comment on above: Performed By: #### L [id number] ####[facility] (BEAKER)[address] [place] [address] Immature granulocytes (Bld) [#/Vol] 0.10 10*3/uL Normal 0.00-0.20 [facility] Comment on above: Performed By: #### L [id number] ####[facility] (BEAKER)[address] [place] [address] Immature granulocytes/100 WBC (Bld) 0.9 % Normal 0.0-1.0 [facility] Comment on above: Performed By: #### L [id number] ####[facility] ([facility] [place] [address] Lymphocytes (Bld) [#/Vol] 0.74 10*3/uL Low 1.20-4.00 [facility] Comment on above: Performed By: #### L [id number] ####[facility] (BEAKER)[address] [place] [address] Lymphocytes/100 WBC (Bld) 7.0 % Low 20.0-45.0 [facility] Comment on above: Performed By: #### L [id number] ####[facility] (BEAKER)[address] [place] [address] MCH (RBC) [Entitic mass] 26.4 pg Low 27.0-33.0 [facility] Comment on above: Performed By: #### L [id number] ####[facility] (BEAKER)[address] [place] [address] MCV (RBC) [Entitic vol] 87.1 fL Normal 82.0-98.0 [facility] Comment on above: Performed By: #### L [id number] ####[facility] (BEAKER)[address] [place] [address] Monocytes (Bld) [#/Vol] 0.73 10*3/uL Normal 0.10-1.00 [facility] Comment on above: Performed By: #### L [id number] ####[facility] (BEAKER)[address] [place] [address] Monocytes/100 WBC (Bld) 6.9 % Normal 5.0-12.0 [facility] Comment on above: Performed By: #### L [id number] ####[facility] (BEAKER)[address] [place] [address] Neutrophils (Bld) [#/Vol] 8.83 10*3/uL High 1.60-7.60 [facility] Comment on above: Performed By: #### L [id number] ####[facility] (BEAKER)[address] [place] [address] Neutrophils/100 WBC (Bld) 83.7 % High 40.0-72.0 [facility] Comment on above: Performed By: #### L [id number] ####[facility] (BEAKER)[address] [place] [address] NRBC (PER 100 WBCS) BY AUTOMATED COUNT 0.0 % Normal 0 [facility] Comment on above: Performed By: #### L [id number] ####[facility] (BEAKER)[address] [place] [address] PLATELETS (10*3/UL) IN BLOOD AUTOMATED COUNT 188 10*3/uL Normal 150-400 [facility] Comment on above: Performed By: #### L [id number] ####[facility] (BEAKER)[address] [place] [address] RBC (Bld) [#/Vol] 5.49 10*6/uL Normal 4.20-5.70 [facility] Comment on above: Performed By: #### L [id number] ####[facility] (BEAKER)[address] [place] [address] WBC (Bld) [#/Vol] 10.56 10*3/uL Normal 4.00-10.60 [facility] Comment on above: Performed By: #### L [id number] ####[facility] ([facility] [place] [address] COMPREHENSIVE METABOLIC PANE Clif 09-23-2024 Albumin [Mass/Vol] 3.9 g/dL Normal 3.5-5.7 [facility] Comment on above: Performed By: #### L [id number] ####[facility] ([facility])[address] [place] [address] ALP [Catalytic activity/Vol] 98 U/L Normal 34-104 [facility] Comment on above: Performed By: #### L [id number] ####[facility] ([facility])[address] [place] [address] ALT [Catalytic activity/Vol] 34 U/L Normal 7-52 [facility] Comment on above: Performed By: #### L [id number] ####[facility] ([facility])[address] [place] [address] Anion gap [Moles/Vol] 11 mmol/L Normal 7-20 [facility] Comment on above: Performed By: #### L [id number] ####[facility] ([facility] [place] [address] AST [Catalytic activity/Vol] 63 U/L High 13-39 [facility] Comment on above: Performed By: #### L [id number] ####[facility] ([facility])[address] [place] [address] Bilirubin [Mass/Vol] 0.7 mg/dL Normal 0.3-1.0 [facility] Comment on above: Performed By: #### L [id number] ####[facility] ([facility])[address] [place] [address] Calcium [Mass/Vol] 8.9 mg/dL Normal 8.6-10.3 [facility] Comment on above: Performed By: #### L [id number] ####[facility] ([facility])[address] [place] [address] Chloride [Moles/Vol] 101 mmol/L Normal 98-107 [facility] Comment on above: Performed By: #### L [id number] ####[facility] ([facility])[address] [place] [address] CO2 [Moles/Vol] 27 mmol/L Normal 21-31 [facility] Comment on above: Performed By: #### L [id number] ####[facility] ([facility])[address] [place] [address] Creatinine [Mass/Vol] 0.96 mg/dL Normal 0.70-1.30 [facility] Comment on above: Performed By: #### L [id number] ####[facility] ([facility])[address] [place] [address] GLOMERULAR FILTRATION RATE ML/MIN/1.73 SQ M.PREDICTED 93.9 mL/min/1.73m*2 Normal >60.0 [facility] Comment on above: Result Comment: The [facility]???s estimated glomerular filtration rate (eGFR) will [...] of individuals. Performed By: #### L [id number] ####[facility] ([facility])[address] [place] [address] Glucose [Mass/Vol] 93 mg/dL Normal 70-100 [facility] Comment on above: Performed By: #### L [id number] ####[facility] ([facility])[address] [place] [address] Potassium [Moles/Vol] 4.3 mmol/L Normal 3.5-5.1 [facility] Comment on above: Performed By: #### L [id number] ####[facility] (BEAKER)[address] [facility] [place] [address] Protein [Mass/Vol] 7.2 g/dL Normal 6.0-8.3 [facility] Comment on above: Performed By: #### L [id number] ####[facility] (BEAKER)[address] [place] [address] Sodium [Moles/Vol] 135 mmol/L Low 136-145 [facility] Comment on above: Performed By: #### L [id number] ####[facility] (BEAKER)[address] [facility] [place] [address] Urea nitrogen [Mass/Vol] 8 mg/dL Normal 7-25 [facility] Comment on above: Performed By: #### L [id number] ####[facility] (BEAKER)[address] [facility] [place] [address] UREA NITROGEN/CREATININE (MASS RATIO) IN SER/PLAS 8.3 Normal [facility] Comment on above: Performed By: #### L [id number] ####[facility] (BEAKER)[address] [place] [address] CONSULTon 09-23-2024 CONSULT -- Attestation signed by [...] Alvarez MD Orthopaedic Surgery, Resident Ortho Pager [phone] 09/23/24 6:55 PM May contact the on-call resident with any concerns via the Orthopaedic pager at any time. Normal [facility] CT ABDOMEN PELVIS W IV CONTR [...] * Electronically signed: Fahad Frazier. Normal [facility] CT CERVICAL SPINE WO IV CONT [...] listhesis. Electronically signed: Fahad Frazier. Normal [facility] CT CHEST W IV CONTRASTon CT [...] recommended. Electronically signed: Fahad Frazier. Normal [facility] CT HEAD WO IV CONTRASTon CT [...] * Electronically signed: Fahad Frazier. Normal [facility] CT TIBIA FIBULA RIGHT WO IV [...] knee Electronically signed: Fahad Frazier. 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 Patient arrives with Rt leg splinted Normal [facility] EDPROVon 09-23-2024 EDPROV History of Present Illness Chief Complaint Patient presents with Leg Injury Initial evaluation completed by Dr. Lang. Matty Garces is a 53 y/o male presenting to the ED with c/o leg injury. Pt was transferred from [facility] for right distal tibfib fracture. Pt [...] what they are. History provided by: Patient Vilas Coma Scale Score: 15 History Past Medical [...] Procedure Abnormality Status --------- ------ CBC auto differential[[id number]] Abnormal Final result Please view results for these tests on the individual orders. TYPE AND SCREEN ABO G (more content not included)... Normal [facility] ETHANOLon 09-23-2024 ETHANOL (MG/DL) IN SER/PLAS <10 Normal <10 [facility] Comment on above: Performed By: #### L [id number] #### [facility] (BEAKER) [address] [place] [address] ETHANOL CALCULATED (%) <0.01 Normal [facility] Comment on above: Performed By: #### L [id number] #### [facility] (BEAKER) [address] [place] [address] HPon 09-23-2024 [facility] Trauma Surgery Chief Complaint: Trauma Fall Mechanism of Injury: 53 y.o. year old male who was brought in via EMS. He had no C-collar or back board in place. Circumstances of injury: Patient states that he was recently admitted to [place] for cellulitis to the [facility], he was discharged yesterday and this morning was home, he got out of bed to take a shower and had a micro seizure and heard his right ankle snap. Denies hitting head or LOC but admits that he doesn't remember the whole event. He went back to [place] ED where a right tib/fib fracture was found and patient was transferred to [facility] Of note patient is on anticoagulant/antiplat elets. Baby aspirin, however he was receiving Shots to prevent blood clots while inpatient at [place] Review of Systems: General: No For Chills, [...] lb)] 136 kg (300 lb) (09/23 1048) Vilas Coma Scale Score: 15 No intake or [...] Cervica (more content not included)... Normal [facility] LACTIC ACID, PLASMAon 2024 LACTATE (MMOL/L) IN SER/PLAS 0.6 mmol/L Normal 0.5-2.2 [facility] Comment on above: Performed By: #### L [id number] #### [facility] ([place]) [address] [place] [address] MAGNESIUMon 09-23-2024 Magnesium [Mass/Vol] 1.8 mg/dL Low 1.9-2.7 [facility] Comment on above: Performed By: #### L [id number] ####[facility] (BEAKER)[address] [place] [address] PHOSPHORUSon 09-23-2024 Magnesium [Mass/Vol] 3.5 mg/dL Normal 2.5-5.0 [facility] Comment on above: Performed By: #### L [id number] #### [facility] (BEAKER) [address] [place] [address] PROTIME-INRon 09-23-2024 INR IN PPP BY COAGULATION ASSAY 1.28 High 0.90-1.10 [facility] Comment on above: Result Comment: ACCC [...] 1995;[id number]. Performed By: #### L [id number] #### [facility] (BEAKER) [address] [place] [address] PROTHROMBIN TIME (PT) IN PPP BY COAGULATION ASSAY 15.9 Seconds High 12.3-14.8 [facility] Comment on above: Performed By: #### L [id number] #### [facility] (BEAKER) [address] [place] [address] TOXICOLOGY PANEL URINEon AMPHETAMINE+METHAMPH ETAMINE SCREEN (PRESENCE) IN URINE Negative Normal Negative [facility] Comment on above: Performed By: #### L [id number] #### [facility] ([facility]) [address] [place] [address] BARBITURATES PRESENCE IN URINE BY SCREEN METHOD Negative Normal Negative [facility] Comment on above: Performed By: #### L [id number] #### [facility] ([facility]) [address] [place] [address] Benzodiazepines Ql (U) Negative Normal Negative [facility] Comment on above: Performed By: #### L [id number] #### [facility] ([facility]) [address] [place] [address] CANNABINOID (PRESENCE) IN URINE BY SCREEN METHOD Negative Normal Negative [facility] Comment on above: Performed By: #### L [id number] #### [facility] ([facility]) [address] [place] [address] Cocaine Ql (U) Negative Normal Negative [facility] Comment on above: Performed By: #### L [id number] #### [facility] ([facility]) [address] [place] [address] METHADONE (PRESENCE) IN URINE BY SCREEN METHOD Negative Normal Negative [facility] Comment on above: Performed By: #### L [id number] #### [facility] ([facility]) [address] [place] [address] OPIATES (PRESENCE) IN URINE BY SCREEN METHOD Positive Abnormal Negative [facility] Comment on above: Performed By: #### L [id number] #### [facility] ([facility]) [address] [place] [address] PHENCYCLIDINE PRESENCE IN URINE BY SCREEN METHOD Negative Normal Negative [facility] Comment on above: Performed By: #### L [id number] #### [facility] ([facility]) [address] [place] [address] Propoxyphene Screen Ql (U) Negative Normal Negative [facility] Comment on above: Performed By: #### L [id number] #### [facility] ([facility]) [address] [place] [address] TRICYCLIC ANTIDEPRESSANTS (PRESENCE) IN URINE Negative Normal Negative [facility] Comment on above: Performed By: #### L [id number] #### [facility] ([facility]) [address] [place] [address] TROPONIN Ion 09-23-2024 Troponin I.cardiac [Mass/Vol] 0.01 ng/mL Normal 0.00-0.04 [facility] Comment on above: Performed By: #### L [id number] #### [facility] ([facility]) [address] [place] [address] TYPE AND SCREENon 09-23-2024 AB SCREEN Negative Normal [facility] Comment on above: Performed By: #### L [id number] #### [facility] ([facility]) [address] [place] [address] ABO group Nom (Bld) A Normal [facility] Comment on above: Performed By: #### L [id number] #### [facility] ([facility]) [address] [place] [address] RH TYPE IN BLOOD Positive Normal [facility] Comment on above: Performed By: #### L [id number] #### [facility] ([facility]) [address] [place] [address] URINALYSISon 09-23-2024 BILIRUBIN, TOTAL PRESENCE IN URINE Negative Normal Negative [facility] Comment on above: Order Comment: Micro scopics not performed on urines with negative chemical reactions unless requested on original order. Performed By: #### L [id number] ####[facility] ([facility])[address] [place] [address] Clarity (U) Clear Normal Clear [facility] Comment on above: Order Comment: Micro scopics not performed on urines with negative chemical reactions unless requested on original order. Performed By: #### L [id number] ####[facility] ([facility])[address] [place] [address] Color (U) Yellow Normal Colorless, Yellow, Light-Yellow [facility] Comment on above: Order Comment: Micro scopics not performed on urines with negative chemical reactions unless requested on original order. Performed By: #### L [id number] ####[facility] ([facility])[address] [place] [address] GLUCOSE (MG/DL) IN URINE Normal Normal Normal [facility] Comment on above: Order Comment: Micro scopics not performed on urines with negative chemical reactions unless requested on original order. Performed By: #### L [id number] ####[facility] ([facility])[address] [place] [address] HEMOGLOBIN PRESENCE IN URINE Negative Normal Negative [facility] Comment on above: Order Comment: Micro scopics not performed on urines with negative chemical reactions unless requested on original order. Performed By: #### L [id number] ####[facility] ([facility])[address] [place] [address] Ketones Ql (U) Negative Normal Negative [facility] Comment on above: Order Comment: Micro scopics not performed on urines with negative chemical reactions unless requested on original order. Performed By: #### L [id number] ####[facility] ([facility])[address] [place] [address] LEUKOCYTE ESTERASE PRESENCE IN URINE BY TEST STRIP Negative Normal Negative [facility] Comment on above: Order Comment: Micro scopics not performed on urines with negative chemical reactions unless requested on original order. Performed By: #### L [id number] ####[facility] ([facility])[address] [place] [address] NITRITE PRESENCE IN URINE Negative Normal Negative [facility] Comment on above: Order Comment: Micro scopics not performed on urines with negative chemical reactions unless requested on original order. Performed By: #### L [id number] ####[facility] ([facility])[address] [place] [address] pH (U) 6.0 [pH] Normal 5.0-8.0 [facility] Comment on above: Order Comment: Micro scopics not performed on urines with negative chemical reactions unless requested on original order. Performed By: #### L [id number] ####[facility] [place] [address] Protein (U) [Mass/Vol] Negative Normal Negative [facility] Comment on above: Order Comment: Micro scopics not performed on urines with negative chemical reactions unless requested on original order. Performed By: #### L [id number] ####[facility] ([facility])[address] [place] [address] Specific gravity (U) [Rel density] 1.050 High 1.010-1.030 [facility] Comment on above: Order Comment: Micro scopics not performed on urines with negative chemical reactions unless requested on original order. Performed By: #### L [id number] ####[facility] ([facility])[address] [place] [address] UROBILINOGEN (MG/DL) IN URINE Normal Normal Normal [facility] Comment on above: Order Comment: Micro scopics not performed on urines with negative chemical reactions unless requested on original order. Performed By: #### L [id number] ####[facility] ([facility])[address] [place] [address] VITAMIN D 25 HYDROXYon 09-23 CALCIDIOL (25 [place] VITAMIN D3) (NG/ML) IN SER/PLAS 42.6 ng/mL Normal 30.0-80.0 [facility] Comment on above: Result Comment: >80. 0 Toxicity possible Performed By: #### L [id number] #### [facility] ([facility]) [address] [place] [address] Superficial Wound Cultureon 09-21-2024 Superficial Wound Culture [...] RESISTANT TO ALL B-LACTAM DRUGS. PERFORMED BY: [facility] [address] [place] [address] PATHOLOGIST CENTRAL SUPPLY NURSE STEVE ANGEL M.D. Normal [facility] Comment on above: Performed By: #### C USUP #### [address] CSPINE WO CONon CT CSPINE [...] ANGEL JORDAN Date: 2022-12-06 06:37 Normal [facility] CT FACIAL BONES WO CONon [...] Date: 2022-12-06 06:41 Normal [facility] CT HEAD WO CONon 12-06-2022 CT [...] Date: 2022-12-06 06:39 Normal [facility] XR ELBOW RT MIN 3 VIEWSon XR ELBOW RT MIN 3 VIEWS Exam: Radiographs: XR ELBOW RT MIN 3 VIEWS Reason for exam: Elbow pain Comparison: None IMPRESSION: Right elbow degenerative changes. Olecranon spur. Remainder of the right elbow is unremarkable. Electronically authenticated by: MICHAEL CASANOVA Date: 2022-12-06 07:22 Normal [facility] XR FOREARM RT 2Von 3 XR FOREARM RT 2V Exam: Radiographs: X R FOREARM RT 2V Reason for exam: Forearm pain Comparison: None IMPRESSION: Mild degenerative changes in the right elbow and wrist. Right forearm is otherwise unremarkable. Electronically authenticated by: MICHAEL CASANOVA Date: 2022-12-06 08:07 Normal [facility] PSA, FREE AND TOTAL RATIOon 12-03-2022 % Free PSA 9.0 % Normal [facility] Comment on above: Result Comment: The [...] By: #### P SAFREE #### [facility] [address] [address] [address] Shabnam Rae Prostate specific Ag [Mass/Vol] 5.9 ng/mL Critically high 0.0-4.0 [facility] Comment on above: Result Comment: Tanja BRANTLEY methodology. . According to the [employer], Serum PSA should decrease and [...] By: #### P SAFREE #### [facility] [address] [address] [address] Shabnam Rae PSA, Free 0.53 ng/mL Normal N/A [facility] Comment on above: Result Comment: Tanja ayala ECLIA methodology. Performed By: #### P SAFREE #### [facility] [address] [place] [address] Dr. Shabnam Rae INSULINon 12-02-2022 Insulin 20.2 uIU/mL Normal 2.6-24.9 [facility] Comment on above: Performed By: #### P SASC #### [facility] [address] [place] [address] Dr. Shabnam Rae TESTOSTERONE, TOTALon 2022 Testosterone [Mass/Vol] 256 ng/dL Critically low 264-916 [facility] Comment on above: Result Comment: Adul t male reference interval is based on a population of healthy nonobese males (BMI <30) between 19 and 39 years old. adia Ch.al. JCEM 2017,102;9517-5098. PMID: [id number]. Performed By: #### P SASC #### [facility] [address] [address] [address] Shabnam Rae CBC AUTO DIFFon 12-01-2022 BASO # 0.1 103/ul Normal 0.0-0.1 [facility] Comment on above: Performed By: #### P SASC #### [facility] [address] [address] [address] Shabnam Rae Basophils/100 WBC (Bld) 1.0 % Normal 0.2-2.0 [facility] Comment on above: Performed By: #### P SASC #### [facility] [address] [address] [address] Shabnam Rae EO # 0.1 103/ul Normal 0.0-0.7 [facility] Comment on above: Performed By: #### P SASC #### [facility] [address] [address] [address] Shabnam Rae Eosinophils/100 WBC (Bld) 1.8 % Normal 0.9-7.0 [facility] Comment on above: Performed By: #### P SASC #### [facility] [address] [address] [address] Shabnam Rae Erythrocyte distribution width (RBC) [Ratio] 14.8 % Normal 11.0-15.0 [facility] Comment on above: Performed By: #### P SASC #### [facility] [address] [address] [address] Shabnam Rae Hematocrit (Bld) [Volume fraction] 49.9 % Normal 42.0-54.0 [facility] Comment on above: Performed By: #### P SASC #### [facility] [address] [address] [address] Shabnam Rae Hemoglobin (Bld) [Mass/Vol] 16.0 g/dL Normal 14.0-18.0 [facility] Comment on above: Performed By: #### P SASC #### [facility] [address] [address] [address] Shabnam Rae IG # 0.04 10e3/ul Critically high 0.00-0.03 [facility] Comment on above: Performed By: #### P SASC #### [facility] [address] [address] [address] Shabnam Rae IG % 0.6 % Critically high 0.0-0.[address] [facility] Comment on above: Performed By: #### P SASC #### [facility] [address] [address] [address] Shabnam Rae LYMPH # 1.0 103/ul Critically low 1.2-3.8 [facility] Comment on above: Performed By: #### P SASC #### [facility] [address] [address] [address] Shabnam Rae Lymphocytes/100 WBC (Bld) 16.2 % Critically low 20.5-60.0 [facility] Comment on above: Performed By: #### P SASC #### [facility] [address] [address] [address] Shabnam Rae MANUAL DIFF REQ NO Normal [facility] Comment on above: Performed By: #### P SASC #### [facility] [address] [address] [address] Shabnam Rae MCH (RBC) [Entitic mass] 27.7 pg Normal 25.9-34.0 [facility] Comment on above: Performed By: #### P SASC #### [facility] [address] [address] [address] Shabnam Rae MCHC (RBC) [Mass/Vol] 32.1 g/dL Normal 29.9-35.2 [facility] Comment on above: Performed By: #### P SASC #### [facility] [address] [address] [address] Shabnam Rae MCV (RBC) [Entitic vol] 86.3 fL Normal 80.0-94.0 [facility] Comment on above: Performed By: #### P SASC #### [facility] [address] [address] [address] Shabnam Rae MONO # 0.5 103/ul Normal 0.3-0.8 [facility] Comment on above: Performed By: #### P SASC #### [facility] [address] [address] [address] Shabnam Rae Monocytes/100 WBC (Bld) 7.6 % Normal 1.7-12.0 [facility] Comment on above: Performed By: #### P SASC #### [facility] [address] [address] [address] Shabnam Rae NEUT # 4.6 103/ul Normal 1.4-6.5 [facility] Comment on above: Performed By: #### P SASC #### [facility] [address] [address] [address] Shabnam Rae Neutrophils/100 WBC (Bld) 72.8 % Normal 43.0-75.0 [facility] Comment on above: Performed By: #### P SASC #### [facility] [address] [place] [address] Dr. Shabnam Rae Platelet mean volume (Bld) [Entitic vol] 9.8 fL Normal 9.5-13.5 [facility] Comment on above: Performed By: #### P SASC #### [facility] [address] [place] [address] Dr. Shabnam Rae PLT 203 103/ul Normal 150-450 [facility] Comment on above: Performed By: #### P SASC #### [facility] [address] [address] [address] Shabnam Rae RBC 5.78 106/ul Normal 4.70-6.10 [facility] Comment on above: Performed By: #### P SASC #### [facility] [address] [address] [address] Shabnam Rae WBC 6.3 103/ul Normal 4.0-11.0 [facility] Comment on above: Performed By: #### P SASC #### [facility] [address] [place] [address] Dr. Shabnam Rae FREE THYROXINE INDEX T7on FTI 2.05 Normal 1.30-4.50 [facility] Comment on above: Performed By: #### T SH, CMP, LIPID, T7, URIC #### [facility] [address] [address] [address] Shabnam Rae T3U 33.0 % Normal 33.0-40.0 [facility] Comment on above: Performed By: #### T SH, CMP, LIPID, T7, URIC #### [facility] [address] [address] [address] Shabnam Rae T4 [Mass/Vol] 6.20 ug/dL Normal 4.50-12.10 [facility] Comment on above: Performed By: #### T SH, CMP, LIPID, T7, URIC #### [facility] [address] [address] [address] Shabnam Rae GLYCOHEMOGLOBIN A1Con 2022 ADA RECOMMENDATION SEE BELOW Normal [facility] Comment on above: Result Comment: ADA RECOMMENDED LIMIT 4.0 - 6.0 ADA THERAPEUTIC TARGET < 7.0 ACTION SUGGESTED > 7.0 Performed By: #### P SASC #### [facility] [address] [address] [address] Shabnam Rae Glucose [Mass/Vol] 114 mg/dL Normal [facility] Comment on above: Performed By: #### P SASC #### [facility] [address] [address] [address] Shabnam Rae HbA1c (Bld) [Mass fraction] 5.6 % Normal 4.5-6.2 [facility] Comment on above: Performed By: #### P SASC #### [facility] [address] [address] [address] Shabnam Rae LIPID PROFILEon 12-01-2022 CHOL-HDL RATIO NORM SEE BELOW Normal [facility] Comment on above: Result Comment: 3.3 - 4.4 LOW RISK 4.4 - 7.1 AVERAGE RISK 7.1 - 11.0 MODERATE RISK >11.0 HIGH RISK Performed By: #### T SH, CMP, LIPID, T7, URIC #### [facility] [address] [address] [address] Shabnam Rae Cholesterol [Mass/Vol] 176 mg/dL Normal <=200 [facility] Comment on above: Performed By: #### T SH, CMP, LIPID, T7, URIC #### [facility] [address] [address] [address] Shabnam Rae Cholesterol in HDL [Mass/Vol] 48 mg/dL Normal 40-60 [facility] Comment on above: Performed By: #### T SH, CMP, LIPID, T7, URIC #### [facility] [address] [address] [address] Shabnam Rae Cholesterol in LDL [Mass/Vol] 108.2 mg/dL Normal [facility] Comment on above: Performed By: #### T SH, CMP, LIPID, T7, URIC #### [facility] [address] [address] [address] Shabnam Rae Cholesterol.total/Ch olesterol in HDL [Mass ratio] 3.7 {ratio} Normal [facility] Comment on above: Performed By: #### T SH, CMP, LIPID, T7, URIC #### [facility] [address] [address] [address] Shabnam Rae HDL NORMAL > or = 60 mg/dl - LO W CARDIOVASCULAR RISK <40 mg/dl - HIGH CARDIOVASCULAR RISK Normal [facility] Comment on above: Performed By: #### T SH, CMP, LIPID, T7, URIC #### [facility] [address] [address] [address] Shabnam Rae LDL CALC NORMAL SEE BELOW Normal [facility] Comment on above: Result Comment: <100 mg/dl OPTIMAL 100 - 129 mg/dl NEAR OR ABOVE OPTIMAL 130 - 159 mg/dl BORDERLINE HIGH 160 - 189 mg/dl HIGH >190 mg/dl VERY HIGH Performed By: #### T SH, CMP, LIPID, T7, URIC #### [facility] [address] [address] [address] Shabnam Rae Triglyceride [Mass/Vol] 99 mg/dL Normal <=150 [facility] Comment on above: Performed By: #### T SH, CMP, LIPID, T7, URIC #### [facility] [address] [address] [address] Shabnam Rae VLDL CALC 19.8 mg/dL Normal [facility] Comment on above: Performed By: #### T SH, CMP, LIPID, T7, URIC #### [facility] [address] [address] [address] Shabnam Rae PROF 14(COMP METB)on 023 Albumin [Mass/Vol] 4.1 g/dL Normal 3.4-5.0 [facility] Comment on above: Performed By: #### T SH, CMP, LIPID, T7, URIC #### [facility] [address] [address] [address] Shabnam Rae Albumin/Globulin [Mass ratio] 1.1 {ratio} Normal [facility] Comment on above: Performed By: #### T SH, CMP, LIPID, T7, URIC #### [facility] [address] [place] [address] Dr. Shabnam Rae ALP [Catalytic activity/Vol] 101 U/L Normal 46-116 [facility] Comment on above: Performed By: #### T SH, CMP, LIPID, T7, URIC #### [facility] [address] [place] [address] Dr. Shabnam Rae ALT [Catalytic activity/Vol] 26 U/L Normal 16-63 [facility] Comment on above: Performed By: #### T SH, CMP, LIPID, T7, URIC #### [facility] [address] [place] [address] Dr. Shabnam Rae Anion gap [Moles/Vol] 10.1 mmol/L Normal [facility] Comment on above: Performed By: #### T SH, CMP, LIPID, T7, URIC #### [facility] [address] [address] [address] Shabnam Rae AST [Catalytic activity/Vol] 19 U/L Normal 15-37 [facility] Comment on above: Performed By: #### T SH, CMP, LIPID, T7, URIC #### [facility] [address] [place] [address] Dr. Shabnam Rae Bilirubin [Mass/Vol] 0.8 mg/dL Normal 0.2-1.0 [facility] Comment on above: Performed By: #### T SH, CMP, LIPID, T7, URIC #### [facility] [address] [address] [address] Shabnam Rae Calcium [Mass/Vol] 9.5 mg/dL Normal 8.5-10.1 [facility] Comment on above: Performed By: #### T SH, CMP, LIPID, T7, URIC #### [facility] [address] [place] [address] Dr. Shabnam Rae Chloride [Moles/Vol] 102 mmol/L Normal 98-107 [facility] Comment on above: Performed By: #### T SH, CMP, LIPID, T7, URIC #### [facility] [address] [place] [address] Dr. Shabnam Rae CO2 [Moles/Vol] 32.4 mmol/L Critically high 21.0-32.0 [facility] Comment on above: Performed By: #### T SH, CMP, LIPID, T7, URIC #### [facility] [address] [place] [address] Dr. Shabnam Rae Creatinine [Mass/Vol] 1.00 mg/dL Normal 0.70-1.30 [facility] Comment on above: Performed By: #### T SH, CMP, LIPID, T7, URIC #### [facility] [address] [place] [address] Dr. Shabnam Rae EGFR-AF SALVADOREAN >60 Normal >=60 [facility] Comment on above: Performed By: #### T SH, CMP, LIPID, T7, URIC #### [facility] [address] [place] [address] Dr. Shabnam Rae EGFR-NON AF [place]OREAN >60 Normal >=60 [facility] Comment on above: Performed By: #### T SH, CMP, LIPID, T7, URIC #### [facility] [address] [place] [address] Dr. Shabnam Rae Globulin (S) [Mass/Vol] 3.8 g/dL Normal [facility] Comment on above: Performed By: #### T SH, CMP, LIPID, T7, URIC #### [facility] [address] [address] [address] Shabnam Rae Glucose [Mass/Vol] 94 mg/dL Normal 74-106 [facility] Comment on above: Performed By: #### T SH, CMP, LIPID, T7, URIC #### [facility] [address] [address] [address] Shabnam Rae Potassium [Moles/Vol] 3.5 mmol/L Normal 3.5-5.1 [facility] Comment on above: Performed By: #### T SH, CMP, LIPID, T7, URIC #### [facility] [address] [place] [address] Dr. Shabnam Rae Protein [Mass/Vol] 7.9 g/dL Normal 6.4-8.2 [facility] Comment on above: Performed By: #### T SH, CMP, LIPID, T7, URIC #### [facility] [address] [place] [address] Dr. Shabnam Rae Sodium [Moles/Vol] 141 mmol/L Normal 136-145 [facility] Comment on above: Performed By: #### T SH, CMP, LIPID, T7, URIC #### [facility] [address] [place] [address] Dr. Shabnam Rae Urea nitrogen [Mass/Vol] 15.0 mg/dL Normal 7.0-18.0 [facility] Comment on above: Performed By: #### T SH, CMP, LIPID, T7, URIC #### [facility] [address] [place] [address] Dr. Shabnam Rae Urea nitrogen/Creatinine [Mass ratio] 15.0 mg/mg Normal [facility] Comment on above: Performed By: #### T SH, CMP, LIPID, T7, URIC #### [facility] [address] [place] [address] Dr. Shabnam Rae TSHon 12-01-2022 TSH 1.504 uIU/mL Normal 0.358-3.740 [facility] Comment on above: Performed By: #### T SH, CMP, LIPID, T7, URIC #### [facility] [address] [address] [address] Shabnam Rae URIC ACID SERUMon 12-01-2022 Urate [Mass/Vol] 6.9 mg/dL Normal 3.5-7.2 [facility] Comment on above: Performed By: #### T SH, CMP, LIPID, T7, URIC #### [facility] [address] [place] [address] Dr. Shabnam Rae TESTOSTERONE, TOTALon 2021 Testosterone [Mass/Vol] 244 ng/dL Critically low 264-916 [facility] Comment on above: Result Comment: Adul t male reference interval is based on a population of healthy nonobese males (BMI <30) between 19 and 39 years old. Dima, et.al. JCEM 2017,102;8204-5895. PMID: [id number]. Performed By: #### P SAFREE #### [facility] [address] [place] [address] Dr. Shabnam Rae TESTOSTERONE, FREE,DIRECT, T OTALon 03-16-2022 Free Testosterone(Direct) 2.1 pg/mL Critically low 7.2-24.0 [facility] Comment on above: Result Comment: Perf ormed at: BN Performed By: #### C VDTBH #### [facility] [address] [place] [address] Dr. Shabnam Rae Testosterone [Mass/Vol] 252 ng/dL Critically low 264-916 [facility] Comment on above: Result Comment: Adul t male reference interval is based on a population of healthy nonobese males (BMI <30) between 19 and 39 years old. Travison, et.al. JCEM 2017,102;3040-9715. PMID: [id number]. Performed at: CB Performed By: #### C VDTBH #### [facility] [address] [place] [address] Dr. Shabnam Rae Formson 02-26-2022 Forms [id number]#1. 00CD:127 Normal [facility] Screenson 02-26-2022 Screens [id number]. 00CD:127 Normal [facility] Screens [id number] 0CD:127 Normal [facility] Urology Office/Clinic Noteon 02-26-2022 Urology Office/Clinic Note [...] qualifying data (more content not included)... Normal [facility] Comment on above: Result Comment: Elec tronically Signed By: Viola Grullon MD\.br\Date and Time Signed: 02/26/22 00:20 EDT\.br\Electronically Co-Signed By: Helen Leung\.br\Date and Time Co-Signed: 02/25/22 11:16 EDT Ambulatory Visit Summaryon 0 02-25-2022 Ambulatory Visit Summary MATTY GARCES Toni :1970 Visit Date:02/25/2022 Ambulatory Visit Instructions Your Diagnosis Hydrocele Varicocele BPH without urinary obstruction Tests Performed Urnls Dip Stick Auto w/o Microscopy POC 95166 Your Care Team Attending Physician - Viola [...] Urnls Dip Stick Auto w/o Microscopy POC 96844 (02/25/2022) Bilirubin Urine Dipstick - Negative Blood Urine Dipstick - Negative Glucose Urine Dipstick - Negative Ketones Urine Dipstick - Negative Leukocytes Urine Dipstick - Negative Nitrite Urine Dipstick - Negative Protein Urine Dipstick - Negative Specific [place] Urine Dipstick - >=1.030 Urine Appearance Urine [...] the hydrocele for any changes. ? Take cthu-dvm-whuubku and prescription medicines only as told by [...] intended t (more content not included)... Normal [facility] Patient Educationon 02-26-20 Patient Education Urology Hydrocele, [...] the hydrocele for any changes. ? Take izfa-wnm-nmihdtj and prescription medicines only as told by [...] 02/17/2011 Document Revised: 09/10/2018 Document Reviewed: 09/10/2018 [employer] Patient Education ? 2019 [employer] [facility] ED Note-Physicianon 02-04-20 ED Note-Physician [id number] .00CD:127 [facility] RAD - Ultrasound Reporton RAD - Ultrasound Report [id number]#1.0 0CD:127 [facility] RAD - CT Reporton 02-02-2022 RAD - CT Report [id number] .00CD:127 [facility] RAD - CT Report [id number]:[id number] CBC AUTO DIFFon 01-05-2022 BASO # 0.0 103/ul Normal 0.0-0.1 [facility] Comment on above: Performed By: #### P SAFREE #### [facility] [address] [place] [address] Dr. Shabnam Rae Basophils/100 WBC (Bld) 0.6 % Normal 0.2-2.0 [facility] Comment on above: Performed By: #### P SAFREE #### [facility] [address] [place] [address] Dr. Shabnam Rae EO # 0.1 103/ul Normal 0.0-0.7 [facility] Comment on above: Performed By: #### P SAFREE #### [facility] [address] [place] [address] Dr. Shabnam Rae Eosinophils/100 WBC (Bld) 2.1 % Normal 0.9-7.0 [facility] Comment on above: Performed By: #### P SAFREE #### [facility] [address] [place] [address] Dr. Shabnam Rae Erythrocyte distribution width (RBC) [Ratio] 13.1 % Normal 11.0-15.0 [facility] Comment on above: Performed By: #### P SAFREE #### [facility] [address] [place] [address] Dr. Shabnam Rae Hematocrit (Bld) [Volume fraction] 43.1 % Normal 42.0-54.0 [facility] Comment on above: Performed By: #### P SAFREE #### [facility] [address] [place] [address] Dr. Shabnam Rae Hemoglobin (Bld) [Mass/Vol] 13.7 g/dL Critically low 14.0-18.0 [facility] Comment on above: Performed By: #### P SAFREE #### [facility] [address] [place] [address] Dr. Shabnam Rae IG # 0.04 10e3/ul Critically high 0.00-0.03 [facility] Comment on above: Performed By: #### P SAFREE #### [facility] [address] [place] [address] Dr. Shabnam Rae IG % 0.6 % Critically high 0.0-0.[address] [facility] Comment on above: Performed By: #### P SAFREE #### [facility] [address] [place] [address] Dr. Shabnam Rae LYMPH # 0.9 103/ul Critically low 1.2-3.8 [facility] Comment on above: Performed By: #### P SAFREE #### [facility] [address] [place] [address] Dr. Shabnam Rae Lymphocytes/100 WBC (Bld) 13.1 % Critically low 20.5-60.0 [facility] Comment on above: Performed By: #### P SAFREE #### [facility] [address] [place] [address] Dr. Shabnam Rae MANUAL DIFF REQ NO Normal [facility] Comment on above: Performed By: #### P SAFREE #### [facility] [address] [place] [address] Dr. Shabnam Rae MCH (RBC) [Entitic mass] 29.5 pg Normal 25.9-34.0 [facility] Comment on above: Performed By: #### P SAFREE #### [facility] [address] [place] [address] Dr. Shabnam Rae MCHC (RBC) [Mass/Vol] 31.8 g/dL Normal 29.9-35.2 [facility] Comment on above: Performed By: #### P SAFREE #### [facility] [address] [place] [address] Dr. Shabnam Rae MCV (RBC) [Entitic vol] 92.9 fL Normal 80.0-94.0 [facility] Comment on above: Performed By: #### P SAFREE #### [facility] [address] [place] [address] Dr. Shabnam Rae MONO # 0.4 103/ul Normal 0.3-0.8 [facility] Comment on above: Performed By: #### P SAFREE #### [facility] [address] [place] [address] Dr. Shabnam Rae Monocytes/100 WBC (Bld) 5.4 % Normal 1.7-12.0 [facility] Comment on above: Performed By: #### P SAFREE #### [facility] [address] [place] [address] Dr. Shabnam Rae NEUT # 5.2 103/ul Normal 1.4-6.5 [facility] Comment on above: Performed By: #### P SAFREE #### [facility] [address] [place] [address] Dr. Shabnam Rae Neutrophils/100 WBC (Bld) 78.2 % Critically high 43.0-75.0 [facility] Comment on above: Performed By: #### P SAFREE #### [facility] [address] [place] [address] Dr. Shabnam Rae Platelet mean volume (Bld) [Entitic vol] 10.9 fL Normal 9.5-13.5 [facility] Comment on above: Performed By: #### P SAFREE #### [facility] [address] [place] [address] Dr. Shabnam Rae PLT 153 103/ul Normal 150-450 [facility] Comment on above: Performed By: #### P SAFREE #### [facility] [address] [place] [address] Dr. Shabnam Rae RBC 4.64 106/ul Critically low 4.70-6.10 [facility] Comment on above: Performed By: #### P SAFREE #### [facility] [address] [place] [address] Dr. Shabnam Rae WBC 6.6 103/ul Normal 4.0-11.0 [facility] Comment on above: Performed By: #### P SAFREE #### [facility] [address] [place] [address] Dr. Shabnam Rae CRPon 01-05-2022 CRP 0.9 mg/dL Normal <=1.0 [facility] Comment on above: Performed By: #### P SAFREE #### [facility] [address] [place] [address] Dr. Shabnam Rae PROF 14(COMP METB)on 022 Albumin [Mass/Vol] 3.6 g/dL Normal 3.4-5.0 [facility] Comment on above: Performed By: #### P SAFREE #### [facility] [address] [place] [address] Dr. Shabnam Rae Albumin/Globulin [Mass ratio] 1.0 {ratio} Normal [facility] Comment on above: Performed By: #### P SAFREE #### [facility] [address] [place] [address] Dr. Shabnam Rae ALP [Catalytic activity/Vol] 114 U/L Normal 46-116 [facility] Comment on above: Performed By: #### P SAFREE #### [facility] [address] [place] [address] Dr. Shabnam Rae ALT [Catalytic activity/Vol] 26 U/L Normal 16-63 [facility] Comment on above: Performed By: #### P SAFREE #### [facility] [address] [place] [address] Dr. Shabnam Rae Anion gap [Moles/Vol] 9.3 mmol/L Normal [facility] Comment on above: Performed By: #### P SAFREE #### [facility] [address] [place] [address] Dr. Shabnam Rae AST [Catalytic activity/Vol] 19 U/L Normal 15-37 [facility] Comment on above: Performed By: #### P SAFREE #### [facility] [address] [place] [address] Dr. Shabnam Rae Bilirubin [Mass/Vol] 0.5 mg/dL Normal 0.2-1.0 [facility] Comment on above: Performed By: #### P SAFREE #### [facility] [address] [place] [address] Dr. Shabnam Rae Calcium [Mass/Vol] 8.9 mg/dL Normal 8.5-10.1 [facility] Comment on above: Performed By: #### P SAFREE #### [facility] [address] [place] [address] Dr. Shabnam Rae Chloride [Moles/Vol] 106 mmol/L Normal 98-107 [facility] Comment on above: Performed By: #### P SAFREE #### [facility] [address] [address] [address] Shabnam Rae CO2 [Moles/Vol] 30.7 mmol/L Normal 21.0-32.0 [facility] Comment on above: Performed By: #### P SAFREE #### [facility] [address] [address] [address] Shabnam Rae Creatinine [Mass/Vol] 1.15 mg/dL Normal 0.70-1.30 [facility] Comment on above: Performed By: #### P SAFREE #### [facility] [address] [place] [address] Dr. Shabnam Rae EGFR-AF SALVADOREAN >60 Normal >=60 [facility] Comment on above: Performed By: #### P SAFREE #### [facility] [address] [address] [address] Shabnam Rae EGFR-NON AF SALVADOREAN >60 Normal >=60 [facility] Comment on above: Performed By: #### P SAFREE #### [facility] [address] [address] [address] Shabnam Rae Globulin (S) [Mass/Vol] 3.6 g/dL Normal [facility] Comment on above: Performed By: #### P SAFREE #### [facility] [address] [address] [address] Shabnam Rae Glucose [Mass/Vol] 117 mg/dL Critically high 74-106 [facility] Comment on above: Performed By: #### P SAFREE #### [facility] [address] [address] [address] Shabnam Rae Potassium [Moles/Vol] 4.0 mmol/L Normal 3.5-5.1 [facility] Comment on above: Performed By: #### P SAFREE #### [facility] [address] [place] [address] Dr. Shabnam Rae Protein [Mass/Vol] 7.2 g/dL Normal 6.1-8.2 [facility] Comment on above: Performed By: #### P SAFREE #### [facility] [address] [address] [address] Shabnam Rae Sodium [Moles/Vol] 142 mmol/L Normal 136-145 [facility] Comment on above: Performed By: #### P SAFREE #### [facility] [address] [address] [address] Shabnam Rae Urea nitrogen [Mass/Vol] 15.0 mg/dL Normal 7.0-18.0 [facility] Comment on above: Performed By: #### P SAFREE #### [facility] [address] [address] [address] Shabnam Rae Urea nitrogen/Creatinine [Mass ratio] 13.0 mg/mg Normal [facility] Comment on above: Performed By: #### P SAFREE #### [facility] [address] [address] [address] Shabnam Rae US SCROTUMon 01-05-2022 US [...] Date: 2022-01-05 08:48 Normal [facility] CBC AUTO DIFFon 01-04-2022 BASO # 0.1 103/ul Normal 0.0-0.1 [facility] Comment on above: Performed By: #### C BC #### [facility] [address] [place] [address] Dr. Shabnam Rae Basophils/100 WBC (Bld) 0.8 % Normal 0.2-2.0 [facility] Comment on above: Performed By: #### C BC #### [facility] [address] [place] [address] Dr. Shabnam Rae EO # 0.1 103/ul Normal 0.0-0.7 [facility] Comment on above: Performed By: #### C BC #### [facility] [address] [place] [address] Dr. Shabnam Rae Eosinophils/100 WBC (Bld) 1.5 % Normal 0.9-7.0 [facility] Comment on above: Performed By: #### C BC #### [facility] [address] [place] [address] Dr. Shabnam Rae Erythrocyte distribution width (RBC) [Ratio] 12.8 % Normal 11.0-15.0 [facility] Comment on above: Performed By: #### C BC #### [facility] [address] [place] [address] Dr. Shabnam Rae Hematocrit (Bld) [Volume fraction] 40.3 % Critically low 42.0-54.0 [facility] Comment on above: Performed By: #### C BC #### [facility] [address] [place] [address] Dr. Shabnam Rae Hemoglobin (Bld) [Mass/Vol] 13.4 g/dL Critically low 14.0-18.0 [facility] Comment on above: Performed By: #### C BC #### [facility] [address] [place] [address] Dr. Shabnam Rae IG # 0.03 10e3/ul Normal 0.00-0.03 [facility] Comment on above: Performed By: #### C BC #### [facility] [address] [place] [address] Dr. Shabnam Rae IG % 0.5 % Normal 0.0-0.5 [facility] Comment on above: Performed By: #### C BC #### [facility] [address] [place] [address] Dr. Shabnam Rae LYMPH # 1.0 103/ul Critically low 1.2-3.8 [facility] Comment on above: Performed By: #### C BC #### [facility] [address] [place] [address] Dr. Shabnam Rae Lymphocytes/100 WBC (Bld) 16.4 % Critically low 20.5-60.0 [facility] Comment on above: Performed By: #### C BC #### [facility] [address] [place] [address] Dr. Shabnam Rae MANUAL DIFF REQ NO Normal [facility] Comment on above: Performed By: #### C BC #### [facility] [address] [place] [address] Dr. Shabnam Rae MCH (RBC) [Entitic mass] 29.5 pg Normal 25.9-34.0 [facility] Comment on above: Performed By: #### C BC #### [facility] [address] [place] [address] Dr. Shabnam Rae MCHC (RBC) [Mass/Vol] 33.3 g/dL Normal 29.9-35.2 [facility] Comment on above: Performed By: #### C BC #### [facility] [address] [place] [address] Dr. Shabnam Rae MCV (RBC) [Entitic vol] 88.8 fL Normal 80.0-94.0 [facility] Comment on above: Performed By: #### C BC #### [facility] [address] [place] [address] Dr. Shabnam Rae MONO # 0.6 103/ul Normal 0.3-0.8 [facility] Comment on above: Performed By: #### C BC #### [facility] [address] [address] [address] Shabnam Rae Monocytes/100 WBC (Bld) 9.6 % Normal 1.7-12.0 [facility] Comment on above: Performed By: #### C BC #### [facility] [address] [address] [address] Shabnam Rae NEUT # 4.4 103/ul Normal 1.4-6.5 [facility] Comment on above: Performed By: #### C BC #### [facility] [address] [place] [address] Dr. Shabnam Rae Neutrophils/100 WBC (Bld) 71.2 % Normal 43.0-75.0 [facility] Comment on above: Performed By: #### C BC #### [facility] [address] [place] [address] Dr. Shabnam Rae Platelet mean volume (Bld) [Entitic vol] 10.8 fL Normal 9.5-13.5 [facility] Comment on above: Performed By: #### C BC #### [facility] [address] [place] [address] Dr. Shabnam Rae PLT 158 103/ul Normal 150-450 [facility] Comment on above: Performed By: #### C BC #### [facility] [address] [place] [address] Dr. Shabnam Rae RBC 4.54 106/ul Critically low 4.70-6.10 [facility] Comment on above: Performed By: #### C BC #### [facility] [address] [place] [address] Dr. Shabnam Rae WBC 6.2 103/ul Normal 4.0-11.0 [facility] Comment on above: Performed By: #### C BC #### [facility] [address] [place] [address] ABD/PELV W CONon [...] Date: 2022-01-04 05:19 Normal [facility] CT PELVIS WO CONon CT PELVIS [...] Date: 2022-01-04 08:54 Normal [facility] CULTURE URINEon 01-04-2022 CULTURE URINE Culture Observations : No growth Normal [facility] Comment on above: Performed By: #### P [facility] #### [facility] [address] [place] [address] Dr. Shabnam Rae Covid-19 PCR ([facility])on 12-13 SARS-CoV-2 (COVID-19) RNA ELIJAH+probe Ql (Unsp spec) Not detected Normal NOT DETECTED [facility] Comment on above: Result Comment: When diagnostic testing is negative, the possibility of a false negative should be considered in the context of a patient's recent exposures and the presence of clinical signs and symptoms consistent with SARS-CoV-2. This test is not yet approved or cleared by the [place] Food and Drug Administration (FDA). This test was developed by [employer], [place], [place]. The performance characteristics of this test were validated by [facility]. The results are not intended to be used as the sole means for clinical diagnosis or patient management decisions. [facility] is authorized under Clinical Laboratory Improvement [...] for this test is supported by the Manager Decision Support of Health and Human Service's declaration that [...] used). Performed By: #### C VDTB #### [facility] [address] [place] [address] Dr. Shabnam Rae ER URINE PROFILEon 2 Bilirubin Ql (U) Negative Normal NEGATIVE [facility] Comment on above: Performed By: #### P SASC #### [facility] [address] [place] [address] Dr. Shabnam Rae Clarity (U) CLEAR Normal CLEAR [facility] Comment on above: Performed By: #### P SASC #### [facility] [address] [place] [address] Dr. Shabnam Rae Color (U) YELLOW Normal YELLOW [facility] Comment on above: Performed By: #### P SASC #### [facility] [address] [place] [address] Dr. Shabnam Rae ERUAHD A micrscopic examination will be performed if indicated. Normal [facility] Comment on above: Performed By: #### P SASC #### [facility] [address] [place] [address] Dr. Shabnam Rae Glucose Ql (U) Negative Normal NEGATIVE [facility] Comment on above: Performed By: #### P SASC #### [facility] [address] [place] [address] Dr. Shabnam Rae Hemoglobin Ql (U) Negative Normal NEGATIVE [facility] Comment on above: Performed By: #### P SASC #### [facility] [address] [address] [address] Shabnam Rae Ketones Ql (U) Negative Normal NEGATIVE [facility] Comment on above: Performed By: #### P SASC #### [facility] [address] [address] [address] Shabnam Rae LEUKOCYTES Negative Normal NEGATIVE [facility] Comment on above: Performed By: #### P SASC #### [facility] [address] [address] [address] Shabnam Rae Nitrite Ql (U) Negative Normal NEGATIVE [facility] Comment on above: Performed By: #### P SASC #### [facility] [address] [place] [address] Dr. Shabnam Rae pH (U) 6.5 [pH] Normal 5-9 [facility] Comment on above: Performed By: #### P SASC #### [facility] [address] [place] [address] Dr. Shabnam Rae SPEC GRAVITY 1.010 Normal 1.005-<=1.[address] [facility] Comment on above: Performed By: #### P SASC #### [facility] [address] [place] [address] Dr. Shabnam Rae UA PROTEIN Negative Normal NEGATIVE/ TRACE [facility] Comment on above: Performed By: #### P SASC #### [facility] [address] [address] [address] Shabnam Rae UR MICRO IND NOT INDICATED Normal [facility] Comment on above: Performed By: #### P SASC #### [facility] [address] [address] [address] Shabnam Rae Urobilinogen Qn (U) 0.2 {Sarai'U}/dL Normal 0.2 - 1. 0 [facility] Comment on above: Performed By: #### P SASC #### [facility] [address] [place] [address] Dr. Shabnam Rae LACTATE/LACTIC ACIDon 2021 Lactate [Moles/Vol] 1.0 mmol/L Normal 0.4-2.0 [facility] Comment on above: Performed By: #### P SASC #### [facility] [address] [address] [address] Shabnam Rae PROF CHEM 8 (BAS METB)on Anion gap [Moles/Vol] 10.0 mmol/L Normal [facility] Comment on above: Performed By: #### B MP #### [facility] [address] [address] [address] Shabnam Rae Calcium [Mass/Vol] 8.5 mg/dL Normal 8.5-10.1 [facility] Comment on above: Performed By: #### B MP #### [facility] [address] [place] [address] Dr. Shabnam Rae Chloride [Moles/Vol] 103 mmol/L Normal 98-107 [facility] Comment on above: Performed By: #### B MP #### [facility] [address] [address] [address] Shabnam Rae CO2 [Moles/Vol] 29.2 mmol/L Normal 21.0-32.0 [facility] Comment on above: Performed By: #### B MP #### [facility] [address] [place] [address] Dr. Shabnam Rae Creatinine [Mass/Vol] 1.25 mg/dL Normal 0.70-1.30 [facility] Comment on above: Performed By: #### B MP #### [facility] [address] [address] [address] Shabnam Rae EGFR-AF SALVADOREAN >60 Normal >=60 [facility] Comment on above: Performed By: #### B MP #### [facility] [address] [address] [address] Shabnam Rae EGFR-NON AF SALVADOREAN >60 Normal >=60 [facility] Comment on above: Performed By: #### B MP #### [facility] [address] [place] [address] Dr. Shabnam Rae Glucose [Mass/Vol] 132 mg/dL Critically high 74-106 [facility] Comment on above: Performed By: #### B MP #### [facility] [address] [address] [address] Shabnam Rae Potassium [Moles/Vol] 3.2 mmol/L Critically low 3.5-5.1 [facility] Comment on above: Performed By: #### B MP #### [facility] [address] [address] [address] Shabnam Rae Sodium [Moles/Vol] 139 mmol/L Normal 136-145 [facility] Comment on above: Performed By: #### B MP #### [facility] [address] [address] [address] Shabnam Rae Urea nitrogen [Mass/Vol] 19.0 mg/dL Critically high 7.0-18.0 [facility] Comment on above: Performed By: #### B MP #### [facility] [address] [address] [address] Shabnam Rae Urea nitrogen/Creatinine [Mass ratio] 15.2 mg/mg Normal [facility] Comment on above: Performed By: #### B MP #### [facility] [address] [place] [address] Dr. Shabnam Rae CERVICAL SPINE 2 OR 3 [facility] 07-06-2019 CERVICAL SPINE 2 OR 3 [facility] Department of Radiology [address] [place] [id number] ======== Patient Name: MATTY GARCES : 1970 Sex: M Age: Race: White Pt. Location: Patient Status: O Ordered Date: 07/06/2019 9:10:00 AM Completed Date: 07/06/2019 09:21 AM Requesting Provider: LUCIANO DAVIS Attending Provider: LUCIANO DAVIS Report Copy To: MIL VENUS Signs & Symptoms: M48.02 Spinal stenosis, cervical region I10 History: [place] Comments: , STAT READ , STAT READ [...] findings. Electronically signed by:Bernice Hoyt. Transcribed by: [email or web address], User Resident: RADHA CHIN Electronically Signed by: BERNICE HOYT @ 07/06/2019 08:52 PM I personally read this/these film(s) with this resident Normal [facility] Comment on above: Order Comment: , STA T READ , STAT READ , , , Ordering Provider - LUCIANO DAVIS MD , CERVICAL SPINE 2 OR 3 Son 04-06-2019 CERVICAL SPINE 2 OR 3 S [facility] Department of Radiology [address] [place] [id number] ======== Patient Name: MATTY GARCES : [...] FALLS Exam: CERVICAL SPINE 2 OR 3 [facility] ======== CERVICAL SPINE 2 OR 3 [...] study. Electronically signed by:Bernice Hoyt. Transcribed by: [email or web address], User Resident: Electronically Signed by: BERNICE HOYT @ 04/06/2019 04:40 PM Normal [facility] Comment on above: Order Comment: AP/LA T, ODONTOID PLEASE DO SWIMMER'S VIEW FOLLOW UP HARDWARE AND ALIGNMENT, S/P ACDF, RECENT FALLS CERVICAL SPINE 2 OR 3 [facility] 02-17-2019 CERVICAL SPINE 2 OR 3 [facility] Department of Radiology [address] [place] [id number] ======== Patient Name: MATTY GARCES : [...] findings. Electronically signed by:Bella King. Transcribed by: [email or web address], User Resident: KENNETH DUVAL Electronically Signed by: BELLA KING @ 02/20/2019 11:53 AM I personally read this/these film(s) with this resident Normal [facility] Comment on above: Order Comment: C-SPI NE 2 OR 3 VIEW POSTOP, EVALUATION HARDWARE AN ALIGNMENT BASIC METABOLIC PANELon 01-12 Calcium [Mass/Vol] 9.2 mg/dL Normal 8.6-10.3 [facility] Comment on above: Order Comment: No: D o not add to previous draw Performed By: #### 5 0103 #### [facility] [address] [place] [address], [place] Chloride [Moles/Vol] 101 mmol/L Normal 98-107 [facility] Comment on above: Order Comment: No: D o not add to previous draw Performed By: #### 5 0103 #### [facility] [address] [place] [address], [place] CO2 [Moles/Vol] 26 mmol/L Normal 21-31 The [facility] Comment on above: Order Comment: No: D o not add to previous draw Performed By: #### 5 0103 #### [facility] [address] [place] [address], [place] Creatinine [Mass/Vol] 1.02 mg/dL Normal 0.70-1.30 [facility] Comment on above: Order Comment: No: D o not add to previous draw Performed By: #### 5 0103 #### [facility] [address] [place] [address], [place] GFR/1.73 sq M predicted among blacks MDRD (S/P/Bld) [Vol rate/Area] mL/min/{1.73_m2} Normal >60 [facility] Comment on above: Order Comment: No: D o not add to previous draw Performed By: #### 5 0103 #### [facility] [address] [place] [address], [place] GFR/1.73 sq M predicted among non-blacks MDRD (S/P/Bld) [Vol rate/Area] mL/min/{1.73_m2} Normal >60 [facility] Comment on above: Order Comment: No: D o not add to previous draw Performed By: #### 5 0103 #### [facility] [address] [place] [address], [place] Glucose [Mass/Vol] 124 mg/dL High 70-100 [facility] Comment on above: Order Comment: No: D o not add to previous draw Performed By: #### 5 0103 #### [facility] [address] [place] [address], [place] Potassium [Moles/Vol] 3.9 mmol/L Normal 3.5-5.1 [facility] Comment on above: Order Comment: No: D o not add to previous draw Performed By: #### 5 0103 #### [facility] [address] [place] [address], [place] Sodium [Moles/Vol] 137 mmol/L Normal 136-145 [facility] Comment on above: Order Comment: No: D o not add to previous draw Performed By: #### 5 0103 #### [facility] [address] [place] [address], [place] Urea nitrogen [Mass/Vol] 15 mg/dL Normal 7-25 [facility] Comment on above: Order Comment: No: D o not add to previous draw Performed By: #### 5 0103 #### [facility] [address] [place] [address], [place] CBC COMPLETE BLOOD COUNTon - Erythrocyte distribution width (RBC) [Ratio] 13.9 % Normal 11.5-15.0 [facility] Comment on above: Order Comment: No: D o not add to previous draw Performed By: #### 5 0103 #### [facility] [address] [place] [address], [place] Hematocrit (Bld) [Volume fraction] 50.0 % Normal 39.0-50.0 [facility] Comment on above: Order Comment: No: D o not add to previous draw Performed By: #### 5 0103 #### [facility] [address] [place] [address], [place] Hemoglobin (Bld) [Mass/Vol] 16.0 g/dL Normal 13.0-17.0 [facility] Comment on above: Order Comment: No: D o not add to previous draw Performed By: #### 5 0103 #### [facility] [address] [place] [address], [facility] MCH (RBC) [Entitic mass] 27.5 pg Normal 27.0-33.0 [facility] Comment on above: Order Comment: No: D o not add to previous draw Performed By: #### 5 0103 #### [facility] [address] [place] [address], [facility] MCHC (RBC) [Mass/Vol] 32.0 g/dL Normal 32.0-35.0 [facility] Comment on above: Order Comment: No: D o not add to previous draw Performed By: #### 5 0103 #### [facility] [address] [place] [address], [facility] MCV (RBC) [Entitic vol] 85.9 fL Normal 82.0-98.0 [facility] Comment on above: Order Comment: No: D o not add to previous draw Performed By: #### 5 0103 #### [facility] [address] [place] [address], [facility] Nucleated RBC/100 WBC (Bld) [Ratio] 0 % Normal 0-0 [facility] Comment on above: Order Comment: No: D o not add to previous draw Performed By: #### 5 0103 #### [facility] [address] [place] [address], [facility] PLAT CNT 249 10*3/uL Normal 150-400 [facility] Comment on above: Order Comment: No: D o not add to previous draw Performed By: #### 5 0103 #### [facility] [address] [place] [address], [facility] RBC (Bld) [#/Vol] 5.82 10*6/uL High 4.20-5.70 [facility] Comment on above: Order Comment: No: D o not add to previous draw Performed By: #### 5 0103 #### [facility] [address] [place] [address], [facility] WBC (Bld) [#/Vol] 15.85 10*3/uL High 4.00-10.60 [facility] Comment on above: Order Comment: No: D o not add to previous draw Performed By: #### 5 0103 #### [facility] [address] Operative Reporton 9 Operative Report MR#: [id number] I [facility] Pt. Name: Matty Garces Room #: [id number] Discharge Date: Birthdate: 1970 OPERATIVE REPORT DATE OF SURGERY: 01/30/2019 SURGEON: Luciano Davis M.D. 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 POSTOPERATIVE DIAGNOSIS: Failed instrumentation at C6-7 on the right. 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 ANESTHESIA: Endotracheal, Hogan. PROCEDURES: Redo [...] Davis M.D. Date Trans: 01/31/2019 02:31 Mark [id number] cc: Venus Jaeger M.D. [address] [address] [place] [facility] CERVICAL SPINE 2 OR 3 [facility] 01-30-2019 CERVICAL SPINE 2 OR 3 [facility] Department of Radiology [address] [place] [address] ======== Patient Name: MATTY GARCES [...] documentation Electronically signed by:Justus Murphy. Transcribed by: [email or web address], User Resident: Electronically Signed by: UJSTUS MURPHY @ 01/30/2019 04:18 PM Normal [facility] Comment on above: Order Comment: C6-7 ACDF POC GLUCOSE LABon 01-30-2019 Glucose [Mass/Vol] 106 mg/dL High 70-100 [facility] Comment on above: Performed By: #### 5 0103 #### [place] [address] [place] [address], [facility] *MRSA/MSSA DNA NASALon 01-23 *MRSA/MSSA DNA NASAL Clinical Report: (D ) Specimen: NASAL SWAB Collected: 01/23/2019 15:02 Status: Final Last Updated: 01/23/2019 20:14 MSSA DNA (Final) Methicillin Susceptible Staphylococcus aureus DNA Detected MRSA DNA (Final) No Methicillin Resistant Staphylococcus aureus DNA Detected Normal [facility] Comment on above: Performed By: #### 5 0103 #### [facility] [address] [place] [address], [facility] APTTon 01-23-2019 aPTT Coag (Bld) [Time] 35.4 s High 25.0-35.0 [facility] Comment on above: Result Comment: ALL [...] THIS PURPOSE. Performed By: #### 5 7307, 34603 #### [facility] [address] [place] [address], [facility] BASIC METABOLIC PANELon 01-11 Calcium [Mass/Vol] 9.5 mg/dL Normal 8.6-10.3 [facility] Comment on above: Performed By: #### 5 7307, 48451 #### [facility] [address] [place] [address], [facility] Chloride [Moles/Vol] 101 mmol/L Normal 98-107 [facility] Comment on above: Performed By: #### 5 7307, 31518 #### [facility] [address] [place] [address], [facility] CO2 [Moles/Vol] 29 mmol/L Normal 21-31 The [facility] Comment on above: Performed By: #### 5 7307, 27469 #### [facility] [address] [place] [address], [facility] Creatinine [Mass/Vol] 1.08 mg/dL Normal 0.70-1.30 [facility] Comment on above: Performed By: #### 5 73, 24560 #### [facility] [address] [place] [address], [place] GFR/1.73 sq M predicted among blacks MDRD (S/P/Bld) [Vol rate/Area] mL/min/{1.73_m2} Normal >60 [facility] Comment on above: Performed By: #### 5 73, 76042 #### [facility] [address] [place] [address], [place] GFR/1.73 sq M predicted among non-blacks MDRD (S/P/Bld) [Vol rate/Area] mL/min/{1.73_m2} Normal >60 [facility] Comment on above: Performed By: #### 5 73, 63867 #### [facility] [address] [place] [address], [place] Glucose [Mass/Vol] 87 mg/dL Normal 70-100 [facility] Comment on above: Performed By: #### 5 73, 80268 #### [facility] [address] [place] [address], [place] Potassium [Moles/Vol] 4.0 mmol/L Normal 3.5-5.1 [facility] Comment on above: Performed By: #### 5 7307, 27505 #### [facility] [address] [place] [address], [place] Sodium [Moles/Vol] 137 mmol/L Normal 136-145 [facility] Comment on above: Performed By: #### 5 7307, 74090 #### [facility] [address] [place] [address], [place] Urea nitrogen [Mass/Vol] 12 mg/dL Normal 7-25 [facility] Comment on above: Performed By: #### 5 7307, 55937 #### [facility] [address] [place] [address], [place] CBC W/DIFFon 05-13-2019 ABS BASOPHILS 0.1 10*3/uL Normal 0.0-0.2 The [facility] Comment on above: Performed By: #### 5 Al, 04360 #### [facility] [address] [facility]. [address] ABS IMM GRANS 0.0 10*3/uL Normal 0.0-0.2 The [facility] Comment on above: Performed By: #### 5 Al, 54432 #### [facility] [address] ABS NEUTROPHILS 5.3 10*3/uL Normal 1.6-7.6 [facility] Comment on above: Performed By: #### 5 Al, 20801 #### [facility] [address] Basophils/100 WBC (Bld) 0.9 % Normal 0.0-1.0 [facility] Comment on above: Performed By: #### 5 Al, 57296 #### [facility] [address] [place] [address], [facility] Eosinophils (Bld) [#/Vol] 0.2 10*3/uL Normal 0.0-0.5 [facility] Comment on above: Performed By: #### 5 Al, 94837 #### [facility] [address] Eosinophils/100 WBC (Bld) 2.3 % Normal 0.0-6.0 [facility] Comment on above: Performed By: #### 5 Al, 62775 #### [facility] [address] Erythrocyte distribution width (RBC) [Ratio] 13.8 % Normal 11.5-15.0 [facility] Comment on above: Performed By: #### 5 Al, 17659 #### [facility] [address] [place] [address], [facility] Hematocrit (Bld) [Volume fraction] 49.6 % Normal 39.0-50.0 [facility] Comment on above: Performed By: #### 5 7306, 99469 #### [facility] [address] [place] [address], [facility] Hemoglobin (Bld) [Mass/Vol] 16.4 g/dL Normal 13.0-17.0 [facility] Comment on above: Performed By: #### 5 7306, 57671 #### [facility] [address] [place] [address], [facility] IMMATURE GRANS 0.5 % Normal 0.0-1.0 The [facility] Comment on above: Performed By: #### 7306, 33279 #### [facility] [address] [place] [address], [facility] Lymphocytes (Bld) [#/Vol] 1.2 10*3/uL Normal 1.2-4.0 [facility] Comment on above: Performed By: #### 5 7306, 89570 #### [facility] [address] [place] [address], [facility] Lymphocytes/100 WBC (Bld) 16.6 % Low 20.0-45.0 [facility] Comment on above: Performed By: #### 5 7306, 02157 #### [facility] [address] [place] [address], [facility] MCH (RBC) [Entitic mass] 27.8 pg Normal 27.0-33.0 [facility] Comment on above: Performed By: #### 5 7306, 83889 #### [facility] [address] [place] [address], [facility] MCHC (RBC) [Mass/Vol] 33.1 g/dL Normal 32.0-35.0 [facility] Comment on above: Performed By: #### 5 7306, 36233 #### [facility] [address] [place] [address], [facility] MCV (RBC) [Entitic vol] 84.2 fL Normal 82.0-98.0 [facility] Comment on above: Performed By: #### 5 7306, 95835 #### [facility] [address] [place] [address], [facility] Monocytes (Bld) [#/Vol] 0.7 10*3/uL Normal 0.1-1.0 [facility] Comment on above: Performed By: #### 5 7306, 83553 #### [facility] [address] [place] [address], [facility] MONOS 9.4 % Normal 5.0-12.0 [facility] Comment on above: Performed By: #### 5 7306, 76267 #### [facility] [address] [place] [address], [facility] Neutrophils/100 WBC (Bld) 70.3 % Normal 40.0-72.0 [facility] Comment on above: Performed By: #### 5 7306, 50688 #### [facility] [address] [place] [address], [facility] Nucleated RBC/100 WBC (Bld) [Ratio] 0 % Normal 0-0 [facility] Comment on above: Performed By: #### 5 7306, 01874 #### [facility] [address] [place] [address], [facility] PLAT CNT 235 10*3/uL Normal 150-400 The [facility] Comment on above: Performed By: #### 5 73, 87069 #### [facility] [address] [place] [id number], [facility] RBC (Bld) [#/Vol] 5.89 10*6/uL High 4.20-5.70 [facility] Comment on above: Performed By: #### 5 7307, 41941 #### [facility] [address] WBC (Bld) [#/Vol] 7.48 10*3/uL Normal 4.00-10.60 [facility] Comment on above: Performed By: #### 5 7307, 70274 #### [facility] [address] PROTHROMBIN TIMEon 9 INR Coag (PPP) [Relative time] 1.12 {INR} Normal 0.91-1.16 [facility] Comment on above: Result Comment: ACCC [...] CHEST 1995;108:231S-246S. Performed By: #### 5 7307, 69112 #### [facility] [address] PT Coag (PPP) [Time] 14.4 s Normal 12.3-14.8 [facility] Comment on above: Result Comment: ALL RESULTS MUST BE INTERPRETED WITH RESPECT TO BLOOD DRAWING ARTIFACT OR DILUTION ERROR OF ANTICOAGULANT AT THE TIME OF SAMPLING. Performed By: #### 5 7307, 29443 #### [facility] [address] [place] [address], [facility] TYPE AND SCREENon 01-23-2019 ABO INTERPRETATION A Normal [facility] Comment on above: Performed By: #### 5 7307, 05985 #### [facility] [address] [place] [address], [facility] RH INTERPRETATION Positive Normal [facility] Comment on above: Performed By: #### 5 7307, 01825 #### [facility] [address] [place] [address], [facility] CT 3D CERVICAL SPINE WO CONT RASTon 01-12-2019 CT 3D CERVICAL SPINE WO CONTRAST [facility] Department of Radiology [address] [place] [address] ======== Patient Name: MATTY GARCES : 1970 Sex: M Age: Race: White Pt. Location: Patient Status: D Ordered Date: 01/10/2019 2:15:00 PM Completed Date: 01/12/2019 10:32 AM Requesting Provider: LUCIANO DAVIS Attending Provider: LUCIANO DAVIS Report Copy To: VENUS JAEGER Signs & Symptoms: M48.02 Spinal stenosis, cervical region I10 History: [place] para auth # [id number] 01/10/19-02/09/19 [id number] *er Comments: Exam: CT 3D CERVICAL SPINE [...] incomplete Electronically signed by:Ten Uriarte. Transcribed by: [email or web address], User Resident: Electronically Signed by: TEN URIARTE @ 01/13/2019 09:18 AM Normal [facility] CERVICAL SPINE 2 OR 3 [facility] 01-05-2019 CERVICAL SPINE 2 OR 3 [facility] Department of Radiology [address] [place] [phone] ======== Patient Name: MATTY GARCES : 1970 Sex: M Age: Race: White Pt. Location: 85 Patient Status: O Ordered Date: 01/05/2019 9:00:00 AM Completed Date: 01/05/2019 09:06 AM Requesting Provider: LUCIANO DAVIS Attending Provider: LUCIANO DAVIS Report Copy To: Signs & Symptoms: M48.02 Spinal stenosis, cervical region I10 History: [place] Comments: , , , Ordering Provider - [...] findings. Electronically signed by:Ten Uriarte. Transcribed by: [email or web address], User Resident: SHELLY DELA CRUZ Electronically Signed by: TEN URIARTE @ 01/05/2019 12:37 PM I personally read this/these film(s) with this resident Normal [facility] Comment on above: Order Comment: , , = ========= , Ordering Provider - LUICANO DAVIS MD , CERVICAL SPINE 2 OR 3 [facility] 08-30-2018 CERVICAL SPINE 2 OR 3 [facility] Department of Radiology [address] [place] [phone] ======== Patient Name: MATTY GARCES : 1970 Sex: M Age: Race: White Pt. Location: Patient Status: O Ordered Date: 08/30/2018 9:35:00 AM Completed Date: 08/30/2018 09:43 AM Requesting Provider: LUCIANO DAVIS Attending Provider: LUCIANO DAVIS Report Copy To: VENUS JAEGER Signs & Symptoms: M50.90 Cervical disc disorder, unsp, unspecified cervical region I10 History: [place] Comments: , POST OP XRAY AP/LAT ONLY , POST OP XRAY AP/LAT ONLY , , , Ordering Provider - LUCIANO DAVIS MD , Exam: CERVICAL SPINE 2 OR 3 [facility] ======== CERVICAL SPINE 2 OR 3 [...] findings. Electronically signed by:Bella King. Transcribed by: [email or web address], User Resident: RYAN ANDERSON Electronically Signed by: BELLA KING @ 08/30/2018 05:45 PM I personally read this/these film(s) with this resident Normal [facility] Comment on above: Order Comment: , POS T OP XRAY AP/LAT ONLY , POST OP XRAY AP/LAT ONLY , , , Ordering Provider - LUCIANO DAVIS MD , Operative Reporton 8 Operative Report MR#: [id number] I [facility] Pt. Name: Matty Garces #: [id number] Discharge Date: Birthdate: 1970 OPERATIVE REPORT DATE OF SURGERY: 08/17/2018 SURGEON: Luciano Davis M.D. PREOPERATIVE DIAGNOSIS: Herniated cervical disk at C6-7. POSTOPERATIVE DIAGNOSIS: Herniated cervical disk at C6-7. 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 ANESTHESIA: Endotracheal, Braida. PROCEDURE: [...] Davis M.D. Date Trans: 08/17/2018 11:25 P/sasha [id number] cc: Venus Jaeger M.D. [address], [facility] [address] [place] [facility] CERVICAL SPINE 2 OR 3 [facility] 08-17-2018 CERVICAL SPINE 2 OR 3 [facility] Department of Radiology [address] [place] [id number] ======== Patient Name: MATTY GARCES : [...] findings. Electronically signed by:Bernice Hoyt. Transcribed by: [email or web address], User Resident: KENNETH DUVAL Electronically Signed by: BERNICE HOYT @ 08/18/2018 01:06 PM I personally read this/these film(s) with this resident Normal [facility] Comment on above: Order Comment: C6-7 ACDF with POC GLUCOSE LABon 08-17-2018 Glucose [Mass/Vol] 113 mg/dL High 70-100 [facility] Comment on above: Performed By: #### 8 5499 #### [facility] [address] [place] [address], [place] RBC'S 2 UNITSon 08-17-2018 CROSSMATCH INTERP 1 COMP Normal [facility] Comment on above: Performed By: #### 8 6002 #### [facility] [address] [place] [address], [place] CROSSMATCH INTERP 2 COMP Normal [facility] Comment on above: Performed By: #### 8 6002 #### [facility] [address] [place] [address], [place] PRODUCT CODE 1 E0336 Normal [facility] Comment on above: Performed By: #### 8 6002 #### [facility] [address] [place] [address], [place] PRODUCT CODE 2 E0336 Normal [facility] Comment on above: Performed By: #### 8 6002 #### [facility] [address] [place] [address], [place] PRODUCT STATUS 1 RE Normal [facility] Comment on above: Result Comment: Resu lt changed by IF on 08/20/2018 07:48. The previous value was XM. Performed By: #### 8 6002 #### [facility] [address] [place] [address], [place] PRODUCT STATUS 2 RE Normal [facility] Comment on above: Result Comment: Resu lt changed by IF on 08/20/2018 07:48. The previous value was XM. Performed By: #### 8 6002 #### [facility] [address] [place] [address], [place] UNIT ABO 1 A Normal [facility] Comment on above: Performed By: #### 8 6002 #### [facility] [address] [place] [address], [place] UNIT ABO 2 A Normal [facility] Comment on above: Performed By: #### 8 6002 #### [facility] [address] UNIT ID 1 [id number] Normal [facility] Comment on above: Performed By: #### 8 6002 #### [facility] [address] [place] [address], [facility] UNIT ID 2 [id number] Normal [facility] Comment on above: Performed By: #### 8 6002 #### [facility] [address] [place] [address], [facility] UNIT RH 1 Positive Normal [facility] Comment on above: Performed By: #### 8 6002 #### [facility] [address] [facility] UNIT RH 2 Positive Normal [facility] Comment on above: Performed By: #### 8 6002 #### [facility] [address] [facility] *MRSA/MSSA CULTUREon 018 *MRSA/MSSA CULTURE Clinical Report: (D) Specimen: NASAL SWAB Collected: 08/02/2018 12:37 Status: Final Last Updated: 08/03/2018 14:26 ISO (Final) No Methicillin Resistant Staphylococcus aureus Isolated (MRSA) ISO (Final) Methicillin Sensitive Staphylococcus aureus (MSSA) Isolated Normal [facility] Comment on above: Performed By: #### 3 1302 #### [facility] [address] APTTon 08-02-2018 aPTT Coag (Bld) [Time] 31.2 s Normal 25.0-35.0 [facility] Comment on above: Result Comment: ALL [...] THIS PURPOSE. Performed By: #### 5 [id number], [id number] #### [facility] [address] [place] [address], [facility] BASIC METABOLIC PANELon 11-2 0 Calcium [Mass/Vol] 9.4 mg/dL Normal 8.6-10.3 [facility] Comment on above: Performed By: #### 0 0071 #### [facility] [address] [place] [address], [facility] Chloride [Moles/Vol] 103 mmol/L Normal 98-107 [facility] Comment on above: Performed By: #### 0 0071 #### [facility] [address] [place] [address], [facility] CO2 [Moles/Vol] 29 mmol/L Normal 21-31 [facility] Comment on above: Performed By: #### 0 0071 #### [facility] [address] [place] [address], [facility] Creatinine [Mass/Vol] 1.06 mg/dL Normal 0.70-1.30 [facility] Comment on above: Performed By: #### 0 0071 #### [facility] [address] [place] [address], [facility] GFR/1.73 sq M predicted among blacks MDRD (S/P/Bld) [Vol rate/Area] mL/min/{1.73_m2} Normal >60 [facility] Comment on above: Performed By: #### 0 0071 #### [facility] [address] [place] [id number], [facility] GFR/1.73 sq M predicted among non-blacks MDRD (S/P/Bld) [Vol rate/Area] mL/min/{1.73_m2} Normal >60 [facility] Comment on above: Performed By: #### 0 0071 #### [facility] [address] [facility] [place] [address], [facility] Glucose [Mass/Vol] 84 mg/dL Normal 70-100 [facility] Comment on above: Performed By: #### 0 0071 #### [facility] [address] [place] [address], [facility] Potassium [Moles/Vol] 4.0 mmol/L Normal 3.5-5.1 [facility] Comment on above: Performed By: #### 0 0071 #### [facility] [address] [place] [address], [facility] Sodium [Moles/Vol] 140 mmol/L Normal 136-145 [facility] Comment on above: Performed By: #### 0 1 #### [facility] [address] Urea nitrogen [Mass/Vol] 20 mg/dL Normal 7-25 [facility] Comment on above: Performed By: #### 0 1 #### [facility] [address] [place] [address], [facility] CBC W/DIFFon 08-02-2018 ABS BASOPHILS 0.1 10*3/uL Normal 0.0-0.2 The [facility] Comment on above: Performed By: #### 5 102 #### [facility] [address] [facility] ABS IMM GRANS 0.1 10*3/uL Normal 0.0-0.2 [facility] Comment on above: Performed By: #### 5 102 #### [facility] [address] ABS NEUTROPHILS 4.2 10*3/uL Normal 1.6-7.6 [facility] Comment on above: Performed By: #### 5 102 #### [facility] [address] [place] [address], [facility] Basophils/100 WBC (Bld) 1.3 % High 0.0-1.0 [facility] Comment on above: Performed By: #### 5 0103 #### [facility] [address] [place] [address], [facility] Eosinophils (Bld) [#/Vol] 0.1 10*3/uL Normal 0.0-0.5 [facility] Comment on above: Performed By: #### 5 0103 #### [facility] [address] [place] [address], [facility] Eosinophils/100 WBC (Bld) 2.0 % Normal 0.0-6.0 [facility] Comment on above: Performed By: #### 5 3 #### [facility] [address] [facility] Erythrocyte distribution width (RBC) [Ratio] 13.6 % Normal 11.5-15.0 [facility] Comment on above: Performed By: #### 5 3 #### [facility] [address] Hematocrit (Bld) [Volume fraction] 44.3 % Normal 39.0-50.0 [facility] Comment on above: Performed By: #### 5 3 #### [facility] [address] [facility] Hemoglobin (Bld) [Mass/Vol] 15.1 g/dL Normal 13.0-17.0 [facility] Comment on above: Performed By: #### 5 0103 #### [facility] [address] [place] [address], [facility] IMMATURE GRANS 1.1 % High 0.0-1.0 [facility] Comment on above: Performed By: #### 5 3 #### [facility] [address] Lymphocytes (Bld) [#/Vol] 1.2 10*3/uL Normal 1.2-4.0 [facility] Comment on above: Performed By: #### 5 3 #### [facility] [address] [place] [address], [facility] Lymphocytes/100 WBC (Bld) 18.3 % Low 20.0-45.0 [facility] Comment on above: Performed By: #### 102 #### [facility] [address] [place] [address], [facility] MCH (RBC) [Entitic mass] 29.0 pg Normal 27.0-33.0 [facility] Comment on above: Performed By: #### 102 #### [facility] [address] MCHC (RBC) [Mass/Vol] 34.1 g/dL Normal 32.0-35.0 [facility] Comment on above: Performed By: #### 102 #### [facility] [address] [place] [address], [facility] MCV (RBC) [Entitic vol] 85.0 fL Normal 82.0-98.0 [facility] Comment on above: Performed By: #### 3 #### [facility] [address] [place] [address], [facility] Monocytes (Bld) [#/Vol] 0.7 10*3/uL Normal 0.1-1.0 [facility] Comment on above: Performed By: #### 5 3 #### [facility] [address] [place] [address], [facility] MONOS 11.1 % Normal 5.0-12.0 [facility] Comment on above: Performed By: #### 5 3 #### [facility] [address] [place] [id number], [facility] Neutrophils/100 WBC (Bld) 66.2 % Normal 40.0-72.0 [facility] Comment on above: Performed By: #### 5 0103 #### [facility] [address] [place] [address], [facility] Nucleated RBC/100 WBC (Bld) [Ratio] 0 % Normal 0-0 [facility] Comment on above: Performed By: #### 5 0103 #### [facility] [address] [place] [address], [facility] PLAT CNT 179 10*3/uL Normal 150-400 [facility] Comment on above: Performed By: #### 5 0103 #### [facility] [address] [place] [address], [facility] RBC (Bld) [#/Vol] 5.21 10*6/uL Normal 4.20-5.70 [facility] Comment on above: Performed By: #### 5 0103 #### [facility] [address] [place] [address], [facility] WBC (Bld) [#/Vol] 6.39 10*3/uL Normal 4.00-10.60 [facility] Comment on above: Performed By: #### 5 0103 #### [address] CERVICAL SPINE 4 OR 5 VIEWSo n 08-02-2018 CERVICAL SPINE 4 OR 5 VIEWS [facility] Department of Radiology [address] [place] [address] ======== Patient Name: MATTY GARCES : 1970 Sex: M Age: Race: White Pt. Location: 85 Patient Status: D Ordered Date: 08/02/2018 1:05:00 PM Completed Date: 08/02/2018 01:29 PM Requesting Provider: LUCIANO DAVIS Attending Provider: LUCIANO DAVIS Report Copy To: VENUS JAEGER Signs & Symptoms: Z01.89 Encounter for other specified special examinations I10 History: [place] Comments: , PREOP XRAY AP/LAT \EANDE\ FLEX/EX [...] findings. Electronically signed by:Bella King. Transcribed by: [email or web address], User Resident: KENNETH DUVAL Electronically Signed by: BELLA KING @ 08/03/2018 11:58 AM I personally read this/these film(s) with this resident Normal [facility] Comment on above: Order Comment: , PRE OP XRAY AP/LAT \EANDE\ FLEX/EX , PREOP XRAY AP/LAT \EANDE\ FLEX/EX , , , Ordering Provider - LUCIANO DAVIS MD , PROTHROMBIN TIMEon 8 INR Coag (PPP) [Relative time] 1.15 {INR} Normal 0.91-1.16 [facility] Comment on above: Result Comment: ACCC [...] CHEST 1995;108:[id number]. Performed By: #### 5 7307, 70541 #### [facility] [address] PT Coag (PPP) [Time] 14.7 s Normal 12.3-14.8 [facility] Comment on above: Result Comment: ALL RESULTS MUST BE INTERPRETED WITH RESPECT TO BLOOD DRAWING ARTIFACT OR DILUTION ERROR OF ANTICOAGULANT AT THE TIME OF SAMPLING. Performed By: #### 5 7307, [id number] #### [facility] [address] [place] [address], [facility] TYPE AND SCREENon 08-02-2018 ABO INTERPRETATION A Normal [facility] Comment on above: Order Comment: 2 uni ts 2 units 2 units 2 units 2 units Performed By: #### 6 2586 #### [facility] [address] [place] [address], [facility] RH INTERPRETATION Positive Normal The [facility] Comment on above: Order Comment: 2 uni ts 2 units 2 units 2 units 2 units Performed By: #### 6 2586 #### [facility] [address] [place] [address], [facility] URINALYSIS REFLEXon 08-02-20 18 Appearance (U) CLEAR Normal CLEAR [facility] Comment on above: Performed By: #### 3 0965 #### [facility] [address] [place] [address], [place] Bilirubin [Mass/Vol] Negative Normal NEGATIVE [facility] Comment on above: Performed By: #### 3 0965 #### [facility] [address] [place] [address], [place] BLOOD Negative Normal NEGATIVE [facility] Comment on above: Performed By: #### 3 0965 #### [facility] [address] [place] [address], [place] Color (U) YELLOW Normal YELLOW [facility] Comment on above: Performed By: #### 3 0965 #### [facility] [address] [place] [address], [place] Glucose [Mass/Vol] 150 mg/dL Abnormal NEGATIVE [facility] Comment on above: Performed By: #### 3 0965 #### [facility] [address] [place] [address], [place] KETONE Negative Normal NEGATIVE [facility] Comment on above: Performed By: #### 3 0965 #### [facility] [address] [place] [address], [facility] [place] Negative Normal NEGATIVE [facility] Comment on above: Performed By: #### 3 0965 #### [facility] [address] [place] [address], [place] MICRO NOT DONE negative chemical reactions unless requested in original order Normal [facility] Comment on above: Performed By: #### 3 0965 #### [facility] [address] [place] [address], [facility] Nitrite Ql (U) Negative Normal NEGATIVE [facility] Comment on above: Performed By: #### 3 0965 #### [facility] [address] [place] [address], [facility] pH (Bld) 5.0 Normal 5.0-8.0 [facility] Comment on above: Performed By: #### 3 0965 #### [facility] [address] [place] [address], [facility] Protein (U) [Mass/Vol] Negative Normal NEGATIVE [facility] Comment on above: Performed By: #### 3 0965 #### [facility] [address] [place] [address], [facility] SPEC GRAV 1.024 High 1.015-1.020 [facility] Comment on above: Performed By: #### 3 0965 #### [facility] [address] [place] [address], [facility] Vital Signs Date Time Vital Sign Value Performing Clinician Facility 04-04-2025 11:03-0400 Body height 188 cm Rubén Geiger MD Work Phone: [facility] 04-04-2025 11:03-0400 Body mass index (BMI) [Ratio] 34.02 kg/m2 Rubén Geiger MD Work Phone: [facility] 04-04-2025 11:03-0400 Body weight 120.2 kg Rubén Geiger MD Work Phone: [facility] 04-04-2025 11:03-0400 Diastolic blood pressure 90 mm[Hg] Rubén Geiger MD Work Phone: [facility] 04-04-2025 11:03-0400 Heart rate 114 /min Rubén Geiger MD Work Phone: [facility] 04-04-2025 11:03-0400 Systolic blood pressure 114 mm[Hg] Rubén Geiger MD Work Phone: [facility] 01-03-2025 14:44-0400 Body height 188 cm Rubén Geiger MD Work Phone: [facility] 01-03-2025 14:44-0400 Body mass index (BMI) [Ratio] 35.31 kg/m2 Rubén Geiger MD Work Phone: [facility] 01-03-2025 14:44-0400 Body weight 124.74 kg Rubén Geiger MD Work Phone: [facility] 07-03-2024 14:45-0400 Body height 188 cm Rubén Geiger MD Work Phone: [facility] 07-03-2024 14:45-0400 Body mass index (BMI) [Ratio] 37.62 kg/m2 Rubén Geiger MD Work Phone: [facility] 07-03-2024 14:45-0400 Body weight 132.9 kg Rubén Geiger MD Work Phone: [facility] 02-25-2022 10:30-0400 Blood Pressure Location Viola Lufrance [facility] 02-25-2022 10:30-0400 Diastolic blood pressure 107 mm[Hg] Viola Lue [facility] 02-25-2022 10:30-0400 Heart rate 74 /min [facility] 02-25-2022 10:30-0400 Respiratory rate 16 /min [facility] Lue [facility] 02-25-2022 10:30-0400 Systolic blood pressure 157 mm[Hg] Viola Lue [facility] Encounters Encounter Date Encounter Type Care Provider Facility Start: 05-29-2025 End: 05-29-2025 Patient encounter procedure Jameel Coats DO -CT Scan [facility] Work Phone: Start: 05-29-2025 End: 05-29-2025 ambulatory Venus Jaeger MD Work Phone: [facility] Work Phone: Start: 05-15-2025 End: 05-16-2025 Corie Miguel NP Work Phone: [facility] Comment on above: Excessive daytime sl eepiness; Primary insomnia Excessive daytime sl eepiness; Obstructive sleep apnea Start: 05-07-2025 End: 05-07-2025 ambulatory Venus Jaeger MD Work Phone: [facility] Work Phone: Start: 05-07-2025 End: 05-07-2025 Patient encounter procedure Jameel Coats DO -[facility] Work Phone: Start: 04-04-2025 End: 04-04-2025 Bamboo [...] Clinisync Result Encounter Jess HOYOS Work Phone: [facility] External Department Unsolicited Start: 03-05-2025 End: 03-06-2025 Clinisync Result Encounter Jess HOYOS Work Phone: [facility] External Department Unsolicited Start: 01-03-2025 End: 01-03-2025 [...] 11-14-2024 Telephone encounter Liz Israel Other Phone: [facility] Start: 10-12-2024 End: 10-12-2024 Telephone encounter Heather Miguel BATTERY TEST ENGINEER Work Phone: [facility] Start: 10-08-2024 Evaluation and manag ement of inpatient LEONIE BETHFORD [facility] Start: 10-08-2024 End: 10-11-2024 Evaluation and management of inpatient ARMANDO BERG [facility] Start: 10-02-2024 End: 10-02-2024 Refill Marianna Sheehan LPN [facility] Comment on above: Excessive daytime sl eepiness; Obstructive sleep apnea Start: 09-28-2024 Evaluation and manag ement of inpatient MARIANNA SUAREZ [facility] Start: 09-25-2024 Evaluation and manag ement of inpatient MARILOU TOMLIN [facility] Start: 09-25-2024 Evaluation and manag ement of inpatient [facility] Start: 09-24-2024 Evaluation and manag ement of inpatient [facility] Start: 09-24-2024 Evaluation and manag ement of inpatient SANDRINE HAHN [facility] Start: 09-24-2024 Evaluation and manag ement of inpatient [facility] Start: 09-23-2024 Emergency department patient visit [facility] Start: 09-23-2024 Emergency department patient visit [facility] Start: 09-23-2024 Emergency department patient visit [facility] Start: 09-23-2024 End: 09-28-2024 Evaluation and management of inpatient SERA WAYNE [facility] Start: 09-21-2024 End: 09-21-2024 ambulatory [facility] Work Phone: Start: 09-21-2024 End: 09-21-2024 Departed Referred Trey Vallejo DPM Work Phone: [facility] Start: [...] 01-03-2024 ambulatory DPM Trey Vallejo Work Phone: [facility] Work Phone: Start: 01-03-2024 End: 01-03-2024 Departed Referred DPM Trey Vallejo Work Phone: [facility] Start: 11-29-2023 End: 11-30-2023 ambulatory Diallo Beauchamp MD Facility:[facility] Start: 10-18-2023 End: 10-19-2023 ambulatory Diallo Beauchamp MD Facility:[facility] Start: 08-30-2023 End: 08-31-2023 ambulatory Diallo Beauchamp MD Facility:[facility] Start: 07-12-2023 End: 07-13-2023 ambulatory Diallo Beauchamp MD Facility:[facility] Start: 06-14-2023 End: 06-15-2023 ambulatory Diallo Beauchamp MD Facility:[facility] Start: 12-06-2022 End: 12-06-[address] VENUS JAEGER . Facility:[facility] Start: 12-05-2022 Encounter for genera l adult medical examination without abnormal findings DR VENUS JAEGER . [facility] Start: 12-01-2022 End: 12-02-2022 ambulatory [...] encounter procedure Viola Grullon [facility] Start: 01-04-2022 End: 01-05-2022 ambulatory [...] Comment on above: Performed By: #### P [facility] #### [facility] [address] [place] [address] [address] Shabnam Rae Start: 01-30-2019 FUSION CERV JT W INT BD FUS DEV, ANT APPR A COL, OPEN [facility] Start: 01-30-2019 REMOVAL OF INT FIX F ROM CERVCAL VERTEBRA, OPEN APPROACH [facility] Start: 01-23-2019 Antibody screen PROVIDE R UNKNOWN Comment on above: Performed By: #### 5 7307, [id number] #### [facility] [address] Start: 08-17-2018 ANESTH SPINE CORD SURGERY [...] Performed By: #### 6 2586 #### [facility] [address] Start: 02-08-1998 H/O: vasectomy History of vasectomy Rubén Geiger MD Work Phone: Colonoscopy Viola Grullon Hemorrhoids (disorder) Viola Grullon Hernia of abdominal cavity (disorder) Viola Grullon Tonsillectomy Viola Grullon Plan of Treatment Date Care Activity Detail Author Start: 06-27-2025 End: 06-27-2025 Patient encounter procedure [facility] Start: 05-14-2025 Influenza vaccination Influenza Vacc ine (#1) [facility] Start: 04-04-2025 End: 04-04-2025 Patient encounter procedure [facility] Comment on above: Arrived Start: 01-03-2025 End: 01-03-2025 Patient encounter procedure [facility] Comment on above: Arrived Start: 10-04-2024 End: 10-04-2024 Patient encounter procedure 10/04/2024 2:20 PM EST [facility] [address] [place] [address] Rubén Geiger MD [address] [facility] [address] [address] [facility] Start: 09-21-2024 Superficial Wound Culture Superficial Wound Culture [facility] Start: 07-03-2024 End: 07-03-2024 Patient encounter procedure [facility] Comment on above: Arrived Start: 05-14-2024 Influenza vaccination Influenza Vacc ine (#1) [facility] Start: 1970 Screening for malign ant neoplasm of colon [facility] Bacteria identified in Unspecified specimen by Aerobe culture [facility] CT Lower leg - right W contrast IV [facility] XR Tibia and Fibula - right 2 Views [facility] Immunizations Immunization Date Immunization Notes Care Provider Fa cility 07-07-2024 influenza virus vacc ine, unspecified formulation Rubén Geiger MD Work Phone: [facility] 07-06-2023 influenza virus vacc ine, unspecified formulation Rubén Geiger MD Work Phone: [facility] Payers Date Payer Category Payer Self-pay [id number] 2022 Medicaid [id number] 2022 Medicaid [id number] 2022 Unknown 1970 Unknown [id number] 2.16.8 40.1.447081.3.579.2.647 1970 Unknown [id number] 2.16.8 40.1.171724.3.579.2.647 1970 Unknown [id number] 2.16.84 0.1.953258.3.579.2.593 1970 Unknown [id number] 2.16.84 0.1.721542.3.579.2.593 1970 Unknown [id number] 2.16.84 0.1.202051.3.579.2.593 1970 Unknown [id number] 2.16.84 0.1.549657.3.579.2.593 1970 Unknown [id number] 2.16.84 0.1.101144.3.579.2.593 1970 Unknown [id number] 2.16.84 0.1.776466.3.579.2.593 1970 Unknown [id number] 2.16. 840.1.006541.3.579.2.196 1970 Unknown [id number] 2.16. 840.1.458246.3.579.2.196 1970 Unknown [id number] 2.16. 840.1.313521.3.579.2.196 1970 Unknown [id number] 2.16. 840.1.416817.3.579.2.196 1970 Unknown [id number] 2.16. 840.1.979399.3.579.2.196 1970 Unknown [id number] 2.16.8 40.1.290667.3.579.2.1259 1969 Unknown [id number] 2.16.84 0.1.373453.3.579.2.1259 1970 Unknown [id number] 2.16.84 0.1.028226.3.579.2.1259 1969 Unknown [id number] 2.16.84 0.1.484092.3.579.2.1259 1959 Unknown [id number] Unknown [id number] Unknown [id number] 2.16.8 40.1.227848.3.579.2.531 Unknown [id number] 2.16.8 40.1.733537.3.579.2.531 Social History Date Type Detail Facility Tobacco smoking status No Smokin g Status Entered [facility] Start: 03-27-2024 End: 07-03-2024 Sex Assigned At Male [facility] Start: 05-15-2018 End: 05-15-2018 Tobacco smoking status CAIS Ex-smoker (finding) [facility] Start: 1970 Sex Assigned At Male [facility] Start: 03-11-2023 [facility] Start: 03-11-2023 Tobacco use and exposure Smokeless tobacco non-user [facility] Start: 03-27-2024 End: 07-03-2024 Alcoholic beverage intake Ex-drinker (finding) [facility] Start: 03-27-2024 End: 07-03-2024 History of Social function [facility] Start: 1970 Sex assigned at Not on file [facility] Start: 09-22-2024 Sex Male (finding) [facility] Functional Status Date Assessment Result Facility 02-25-2022 Functional Status N/A [facility] Clinical Notes 02-25-2022 to 05-29-2025 Telephone Encounter - Heather Miguel NP - 05/16/2025 8:45 AM EDTTelephone Encounter - Heather Miguel NP - 05/16/2025 8:45 AM EDT Note Date & Type Note Facility 05-29-2025 Radiology Diagnostic study note [facility] Main [address] Scan Report Signed Patient: Matty Garces MR#: [id number] : 1970 Acct:[id number] Age/Sex: 54 / M ADM Date: 5 Loc: CT Room: Type: [facility] Attending Dr: Jameel Coats DO Copies to: [...] Irving M.D. 05/29/2025 11:40 PM Dictation Location: [facility]--17 Transcribed By: [facility] 05/29/25 234 Dictated By: Francis Irving II, MD 05/29/25 232 Signed By: [id number] [facility] Work Phone: 05-16-2025 Telephone encounter Note OARRS reviewed [facility] 05-16-2025 Miscellaneous Notes OARRS reviewed documented in this encounter [facility] 05-07-2025 Evaluation note Diagnosis Onset Date Resolution Hypertrophy of bone of lower leg noneactive May 07 11:21am Fracture of right tibia and fibula noneactive May 07 11:21am Right leg pain noneactive April 11:21am [facility] Work Phone: [phone]) 929-242607-23-2025 History of Present illness Narrative* Rubén Geiger [...] in all four extremities, including at least piece hand, finger abductors, biceps, triceps, deltoid, toe flexors [...] refill for Xywav will be sent to [facility]. If symptomspersist or worsen, [...] up in 3 months. documented in this [facility]04-23-2025 History of Present illness Narrative* Rubén Geiger [...] 1 mg, Oral, 2 times daily HYDROcodone-acetaminophen (Elmira) 5-325 MG tablet hydrOXYzine pamoate (Vistaril) 25 [...] in all four extremities, including at least piece hand, finger abductors, biceps, triceps, deltoid, toe flexors [...] Increase Xywav to 6mg documented in this encounterWestern Missouri Mental Health [id number] History of Present illness Narrative* Rubén Geiger [...] 1 mg, Oral, 2 times daily HYDROcodone-acetaminophen (Elmira) 5-325 MG tablet hydrOXYzine pamoate (Vistaril) 25 [...] Right 01/17/2018 [place] shoulder labral repair Dr. aWn ULNAR NERVE TRANSPOSITION Left 2014 UVULOPALATOPHARYNGOPLASTY Procedure:U.P.P.P.;Disease:Tracheal [...] in all four extremities, including at least piece hand, finger abductors, biceps, triceps, deltoid, toe flexors [...] intracranial or extracranial stenosis. documented in this [facility]03-04-2025 Telephone encounter Note* Telephone Encounter - Isabella Manzano - 11/14/2024 9:49 AM EST Pt called for refill on Zofran. [facility] Work Phone: [phone] Miscellaneous Notes* Telephone Encounter - Isabella Manzano - 11/14/2024 9:49 AM EST Pt called for refill on Zofran. documented in this [facility]01-30-2025 Telephone encounter Note* Telephone Encounter - Heather [...] sent and if I search patient chat. [facility] [id number] Miscellaneous Notes* Telephone Encounter - Heather Miguel NP - 10/12/2024 7:20 PM EST Did we send in Xywav REMS form for this patient[facility] the form we sent in had white out on the titration section on the form. They need new form without white out on it? I do notsee anything in media sent and if I search patient chat. documented in this encounterWestern Missouri Mental Health [id number] NoteOccupational Therapy Occupational Therapy Treatment Note Patient [...] going to put in a elba toilet. (Forest Fire Fighters Dispatcher suggesting a RTS or to have son put in toilet however, pt stated that he will replace the toilet himself) Objective 1 Pt was up in chair at EOS with on her way. Objective 2 [employer] Dispatcher provided education on home and bathroom safety. [...] endurance, Decreased functional mobility, Decreased IADLs OT Assessment/NEONATAL INTENSIVE CARE NURSE Summary: Pt is progressing toward goals but [...] A Little (Min Henrietta (more content not included)...[facility] 10-11-2024 NoteHospital Medicine Discharge Summary Final Discharge Diagnosis: Left leg cellulitis Open wound of left great toe HTN Anxiety disorder Chronic combined systolic and diastolic Congestive heart failure, NYHA II Closed fracture of right fibula and tibia Admission Diagnosis: Left leg cellulitis [L03.116] Cellulitis of right lower extremity [L03.115] Cellulitis of left leg [L03.116] Hospital course: 54-year-old male who came from [facility] due to left lower extremity cellulitis. [...] Medications These medications were sent to [facility] - [place], [place] - [address], [facility] [address] Phone (more content not included)...[facility] 10-11-2024 NotePharmacy Dosing Service - Vancomycin [...] or questions Thank you, Sudha Camacho, PharmD, 10/11/24[facility]01-29-2025 Note Attestation signed by Sandrine Hahn [...] with any concerns via the Orthopaedic pager ([phone]) at any time. Jazzmine Casanova MD Orthopedic Surgery Resident, PGY 1[facility]01-28-2025 NoteHospital Medicine Daily Progress Note - 10/10/2024 6:40 PM; Room: [address] [place] [address] Admission: 10/08/2024 5:47 AM; Length of stay: 2 days THE HOSPITALIST TEAM PREFERS TO USE Dry Lube CHAT FOR NON-URGENT COMMUNICATION 7AM-7PM. IF I DO NOT RESPOND WITHIN 20 MINUTES OR URGENT MATTERS, PLEASE CALL THROUGH THE TRESTLEMAN. FROM 7PM-7AM, PLEASE PAGE [phone](COVR). Code Status: Full Code Barriers to Discharge: [...] , FREET4 , CORTISOL , FEV1 , OTW5HWC , DLCO , RVSP , HDL , LDL No results found for: RMYVOTEL83 , IRON , TIBC , C3 , [...] Care Svc (06) PT (more content not included)...[facility]01-28-2025 NoteUnChildren's Hospital for Rehabilitation Vascular Surgery/Wound Care CONSULTATION Reason for Consult: [...] Patient reports that he has followed with police manager in [place] for many years for treatment of his left great toe DFU. States that is chronic and has been minimal healing progress until recently. Patient states he would like to resume care with this police manager at discharge. He has not been able to see police manager since previous discharge due to scheduling issues. [...] 5 mg, 5 mg, oral, q4h PRN, oTnya Lerner NP, 5 mg at 10/10/24 1419 [...] on file Occupational Histor (more content not included)...[facility]01-28-2025 NotePhysical Therapy Physical Therapy Treatment Patient [...] Stand Technique 1 S (more content not included)...[facility] 10-10-2024 Note. Pharmacy Dosing Service - [...] days. -Check BUN/SCr daily Altaf Martin, PharmD, 10/09/24[facility]01-27[facility]2025 Note Occupational Therapy Occupational Therapy Evaluation Patient Name: Matty Garces : 1970 Today's Date: 10/09/2024 Time in:1504 Time out: 1526 Present Illness History: 54 y/o M presented from [facility] with R LE cellulitis. Patient was [...] Level of Function Prior Function Level of [place]: Independent with ADLs and functional transfers, Independent [...] mobility, transfers and fu (more content not included)...[facility]01-27-2025 Note10/09/24 0909 Admission Assessment Questions Verify [...] Status Interested Does the patient have a supportive employment case manager assigned to them through their insurance? No Living Arrangement (Current/Prior to Hospitalization) Private residence (lives with ) Does the patient have history of HHC or SNF? Yes (Active with [facility]) Assistive Device Wheelchair;Bedside Commode;Walker Patient's goal [...] able to send link and activate MyChart? [facility]01-27-2025 NoteHospital Medicine Daily Progress Note - 10/09/2024 12:13 PM; Room: [address] [place] [address] Admission: 10/08/2024 5:47 AM; Length of stay: 1 days THE HOSPITALIST TEAM PREFERS TO USE STAT-Diagnostica FOR NON-URGENT COMMUNICATION 7AM-7PM. IF I DO NOT RESPOND WITHIN 20 MINUTES OR URGENT MATTERS, PLEASE CALL THROUGH THE TRESTLEMAN. FROM 7PM-7AM, PLEASE PAGE [phone](COVR). Code Status: Full Code Barriers to Discharge: [...] , FREET4 , CORTISOL , FEV1 , XWF7FSO , DLCO , RVSP , HDL , LDL No results found for: SJEVVHBD19 , IRON , TIBC , C3 , [...] Home PT Signed C (more content not included)...[facility]01-27-2025 NotePhysical Therapy Physical Therapy Re-Evaluation Patient Name: Matty Garces : 1970 Today's Date: 10/09/2024 General Subjective: Attempted to see pt earlier today ([id number]) for mobility assessment. Pt deferred d/t pain [...] Exercise Therapeutic Exercise Therape (more content not included)...[facility] 10-09-2024 Note. Pharmacy Dosing Service - [...] state -Check BUN/SCr daily Altaf Martin, ErinD, 10/09/24[facility]01-27-2025 Note Orthopaedic Surgery Orthopaedic Surgery Progress [...] Rivas MD Orthopaedic Surgery, PGY-2 Ortho Pager [phone] 10/09/24 6:38 AM I am available via LoveIt 6a-6p. May contact the on-call resident with any concerns via the Orthopaedic pager at any time.[facility]01-26-2025 NoteCase was discussed with the AYAKA on 10/08/2024. I agree with the history, physical, assessment, and plan of care. I discussed the findings and therapeutic plan. I agree with the documentation, except for any updates below. Fabiola Wade, [facility]01-26-2025 NotePhysical Therapy Evaluation Patient Name: Matty Garces Today's Date: 10/08/2024 Admit Date: 10/08/2024 Time In: 1:20pm Time Out: 1:45pm Cumulative minutes: 25 minutes Billed minutes: 25 minutes; 15 min eval; 10 min therapeutic exercise to review HEP x10 reps. History of present illness Per H&P: Matty Garces is an 54 y.o. male who came from [facility] with LLE cellulitis. Patient has PMH of hypertension, diastolic heart failure, GERD, anxiety. He recently was admitted here and had right leg tib/fib fracture and seen by our ortho team and had closed insertion with intramedullary wendy on 09/24/24 and was discharged home. He reports he went to [place] ER due to increased pain, swelling and [...] sustained for approximately 2 hours from approximately 3432-7318. Trauma team ordered a STAT ECG and [...] (more content not included)...[facility] [id number] NotePharmacy Dosing Service - Vancomycin Initial Consult Note Pharmacy has been consulted for the dosing and evaluation of Drug: Vancomycin Indication: complicated skin and soft tissue infection AUC 400-600 mg*hr/L and trough 10-20 mcg/mL Other Antimicrobial Regimens: cefepime Labs and Renal Function Total body weight: 134 kg (295 lb) [place] body weight: 82.2 kg (181 lb 3.5 [...] Comments: - 54 year old male from [place] with LLE cellulitis -Had intramedullary wendy placed [...] or questions Thank you, Altaf Martin, PharmD, 10/08/24UnUniversity [facility]als Port[facility] Center01-26-2025 Note Will consult wound careUnUniversity Hospitals Portage Medical Center01-26-2025 Note Continue vanco and zosyn Ortho following Will get blood culturesUnUniversity Hospitals Portage Medical Center01-26-2025 Note Continue citalopram, clonazepamUnUniversity [facility]als [facility]01-26-2025 NoteContinue modafinil, coregUnUniversity Hospitals Portage Medical Center01-26-2025 Note Not in exacerbation Continue furosemide, coreg, asaUnUniversity Hospitals Portage Medical Center01-26-2025 NoteOrtho following, concern for possible infection Admit to med surg Activity orders per ortho with LLE Cardiac diet Will get labs this morning and follow up on results Daily bmp and cbc to monitor kidney function, electrolytes, hgb and wbc Case will be discussed with attending physicianUnUniversity Hospitals Portage Medical Center01-26-2025 NoteHospital Medicine History and Physical 10/08/2024 7:26 AM THE HOSPITALIST TEAM PREFERS TO USE Dry Lube CHAT FOR NON-URGENT COMMUNICATION 7AM-7PM. IF I DO NOT RESPOND WITHIN 20 MINUTES OR URGENT MATTERS, PLEASE CALL THROUGH THE TRESTLEMAN. FROM 7PM-7AM, PLEASE PAGE [phone](COVR). Chief Complaint Chief Complaint Patient presents with Cellulitis History of Present Illness Matty Garces is an 54 y.o. male who came from [facility] with LLE cellulitis. Patient has PMH of hypertension, diastolic heart failure, GERD, anxiety. He recently was admitted here and had right leg tib/fib fracture and seen by our ortho team and had closed insertion with intramedullary wendy on 09/24/24 and was discharged home. He reports he went to [place] ER due to increased pain, swelling and [...] this hospital stay by a member of [facility]. Past Medical History Past [...] Insecurity: No Food Insecurity (more content not included)...[facility]01-20-2025 Telephone encounter Note* Telephone Encounter - Marianna Sheehan LPN - 10/02/2024 2:19 PM EST Provigil refill request to [facility] sent to provider. Last appt. 07/03/24 [facility] [id number] Miscellaneous Notes* Telephone Encounter - Marianna Sheehan LPN - 10/02/2024 2:19 PM EST Provigil refill request to [facility] sent to provider. Last appt. 07/03/24 documented in this encounterWestern Missouri Mental Health [id number] NoteTrauma team informed at approximately 1730 per [facility] that patient went into a-flutter and sustained for approximately 2 hours from approximately 0688-0063. Trauma team ordered a STAT ECG and [...] tonight, AMA AMA paperwork reviewed and signed UnUniversity Hospitals [facility] Center01-16-2025 Note09/28/24 1537 Home Oxygen Therapy Evaluation Pulse Oximetry on room air at Rest 94 Pulse Ox on room air while walking 96 Patient Qualification for home oxygen Does not qualify for home oxygen this visit (When pt is sleeping, apnea is noted and at times saturation drops but when pt is awake and moving his oxygenation is stable)[facility]01-16-2025 NoteUnChildren's Hospital for Rehabilitation Trauma Surgery Progress Note Subjective Patient was [...] kg (296 lb 15.4 oz) (09/28 035) Vilas Coma Scale Score: 15 FiO2 (%): [50 [...] Value Ventricular Rate 82 Atrial Rate 82 [place] Interval 164 QRS DURATION 92 QT Interval 386 QTC CALCULATION(BAZETT) 450 P Odell 61 R-Odell 18 T Wave Odell 69 Impression Normal sinus rhythm Normal ECG [...] C, PT/OT recommending walker, commode, and rolling wheelchair.[facility]01-16-2025 Note Physical Therapy Physical Therapy Treatment [...] EOB, commode, and recliner (more content not included)...[facility]01-16-2025 NoteOccupational Therapy Occupational Therapy Treatment Patient [...] apnea) Gastroesophageal reflux disease Obese Co-tx with HEALTH AND SAFETY DIRECTOR to facilitate purposeful activity, 2/2 high fall risk, impaired dyn standing balance & act tolerance, poor safety awareness, & poor safety awareness with STS, transfers, & functional ambulation; To maintain safety of patient & staff. 09/28/24 1358 OT Last Visit OT Received On 09/28/24 General Subjective I got my w/c 3rd hand...from my xvaolr-bd-ldb. Treatment Duration (min) 55 Minutes Response to [...] not maintain precs. General Assessment Hearing mild Yocha Dehe Skin Integrity ALVARO wrap to RLE, DFU to L great toe Grooming Grooming Level of Assistance Setup Grooming Where Assessed Other (Comment) (sitting on [facility]) Grooming Comments to complete facial care & oral care with cues for continuation, 2/2 perseverance. UE Bathing UE Bathing Level of Assistance Setup UE Bathing Where Assessed Other (Comment) ([facility]) UE Bathing Comments to complete 100% UBB sitting on [facility]. Cues for continuation, 2/2 perseveration. LE Bathing LE Bathing Level of Assistance Contact guard LE Bathing Where Assessed Other (Comment) ([facility]) LE Bathing Comments BLEs bathed sitting on BS; Pt stood with device for mary lou-hygiene & required CGA to maintain balance. UE Dressing UE Dressing Level of Assistance Setup UE Dressing Where Assessed Sitting in chair UE Dressing Comments to don gown Toileting Toileting Level of Assistance Contact guard Where Assessed Bedside commode Toileting Comments CGA during mary lou-care post BM, standing at [facility]. Unsteadiness present. Static Sitting Balance Static Sitting-Balance Support Feet supported Static Sitting-Level of Assistance Distant supervision Static Sitting-Comment/Number of Minutes Supervision for safety Dynamic Sitting Balance Dynamic Sitting-Balance Support Feet supported;Unilateral upper extremity supported Dynamic Sitting Balance-Level of Assistance Close supervision Dynamic Sitting-Comments SBA for safety scooting EOB, positioning on [facility] Static Standing Balance Static Standing-Balance Support With [...] mary lou-care & hygiene in stance at [facility] with RW. Add'l SBA for safety. Pt very unsteady with poor awareness. CGA during functional ambulation with device. Cues for safety awareness, & maintaining WB precs. Bed Mobility 1 Bed Mobility From 1 Supine Bed Mobility Type 1 To Bed Mobility to 1 Short sit Level of Assistance 1 Close superv (more content not included)...[facility]01-16-2025 NoteCalRetailVector by phone to check on status of pt's DME (wheelchair, walker, bedside commode). Was advised they did not receive it via [employer] and would need it direct faxed to [phone]. Faxed referral and was advised they will [...] to call . UPDATE 3:05PM- Spoke with [facility] again and was advised the wheelchair could [...] discharge around 6pm tonight. Also spoke with [facility] and was provided w/ fax [phone] to send AVS once ready. UPDATE 4:05PM- Direct faxed final AVS to [facility]01-16-2025 NoteUnChildren's Hospital for Rehabilitation Vascular and Wound Surgery DAILY PROGRESS NOTE [...] BID simvastatin, 20 mg, oral, Nightly Imaging: [facility] Carotid Artery Duplex Bilateral Narrative: Procedure: [...] 2. Unchanged cardiomediastinal silho (more content not included)...[facility]01-15-2025 NoteDischarge Planning: Home with [facility] The patient was accepted by [facility]. DME referral sent to [facility]. The patient would like the DME either delivered to the hospital or his home prior to discharge.[facility]01-15-2025 Note Occupational Therapy Occupational Therapy Treatment Patient Name: Matty Garces : 1970 Today's Date: 09/27/2024 Time in:1357 Time out:1450 Total time:53 minutes,23 min OT, additional for HEALTH AND SAFETY DIRECTOR [place] provided to maximize safety as progressed [...] precautions etc Transfers 2 (more content not included)...[facility]01-15-2025 Note Physical Therapy Physical Therapy Treatment [...] 1 for lift, balance, (more content not included)...[facility]01-15-2025 Note Attestation signed by Fahad Rizzo MD at 09/28/2024 7:41 AM Patient seen and examined with trauma team [facility] Trauma Surgery Progress Note Subjective Patient was [...] Value Ventricular Rate 82 Atrial Rate 82 [place] Interval 164 QRS DURATION 92 QT Interval 386 QTC CALCULATION(BAZETT) 450 P Odell 61 R-Odell 18 T Wave Odell 69 Impression Normal sinus rhythm Normal ECG [...] for acute findings. Respiratory: (more content not included)...[facility] 09-26-2024 NotePer patients patient was to start with Radha Mendenhall [facility] on the day of admit. Referral made as requested. SW following.[facility]01-14-2025 NoteUnChildren's Hospital for Rehabilitation Vascular and Wound Surgery DAILY PROGRESS NOTE Subjective Patient seen and examined at bedside. No acute events overnight. Vital signs stable. Denies pain to the left ulcer. Patient states he follows regularly with police manager [facility] and plans to follow-up with [...] BID simvastatin, 20 mg, oral, Nightly Imaging: [facility] Carotid Artery Duplex Bilateral Narrative: Procedure: [...] Increased oxygen requirements. COMPARISON: (more content not included)...[facility] 09-26-2024 NoteOccupational Therapy Occupational Therapy Treatment [...] on with B LE's elevated Objective 2 [employer] Dispatcher discussed importance of discharging to facility for continued therapy prior to going home however, pt declines. Pt transfers are currently unsafe with advertising copywriter questioning ability to maintain WB status. [...] Other Pt is impulsive during standing/transfer activities. [employer] Dispatcher questions pts safety while at home. General [...] endurance, Decreased functional mobility, Decreased IADLs OT Assessment/NEONATAL INTENSIVE CARE NURSE Summary: Pt would benefit from continued therapy [...] training, Endurance training, Patient/f (more content not included)...[facility]01-14-2025 NoteOrthopaedic Surgery Orthopaedic Surgery Progress Note [...] Can be reached at the orthopedic pager: [phone] Luis Felipe Rivas MD 09/26/24 7:24 AM Ortho Pager: [phone] Hospitals Portage Medical Center01-14-2025 Note [facility] Trauma Surgery Progress Note Subjective Subjective: Patient [...] kg (303 lb 9.2 oz) (09/26 0433) Vilas Coma Scale Score: 15 Intake/Output Summary (Last [...] Value Ventricular Rate 82 Atrial Rate 82 [place] Interval 164 QRS DURATION 92 QT Interval 386 QTC CALCULATION(BAZETT) 450 P Odell 61 R-Odell 18 T Wave Odell 69 Impression Normal sinus rhythm Normal ECG [...] Syncopal workup -Telemetry monitori (more content not included)...[facility]01-13-2025 NotePt was seen early this morning about wearing BiPap for possible sleep apnea due to periods of apnea and decreased oxygen saturation overnight. Pt refused BiPap, stating he has tried it before and it gives him migraines. 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 Referral Reason Follow up;Information Patient Information Primary Caregiver Spouse Activities of Daily Living Assistive Device Walker;Wheelchair Behavior Oriented Communication Talks;Understands speaking Discharge Planning Living Arrangements Spouse/significant other Support Systems Spouse/significant other Type of Residence Private residence;[facility] (await name of agency from ) Post Acute Services In home services (agreeable to [facility]) Type of Home Care Services (Current) Skilled Home Servicies;Home OT;Home PT ([facility] was just going to start services before admit) Patient's goal for discharge home with [facility] Does the patient need discharge transport arranged? No () Screened by [facility]. Pt declines SNF placement and is agreeable to take pt home with [facility]. Await name of [facility] agency that was approved to start services. Pt will likely need RT for home O2. Will follow up with pt's for [facility] agency. thinks [facility] agency is [facility] or [facility]. SW will follow with referrals.[facility]01-13-2025 Note09/25/24 1332 Admission Assessment Questions Verify [...] Status Interested Does the patient have a supportive employment case manager assigned to them through their insurance? No Living Arrangement (Current/Prior to Hospitalization) Private residence;Home self care Does the patient have history of HHC or SNF? Yes (pt could not remember the [facility] agency name, neither could ) Assistive [...] Assessment completed with , patient deferred to .[facility]01-13-2025 NoteThe findings from this face to face encounter indicate the reason this patient requires a bedside commode. Patient is physically incapable of using regular toilet facilities. Patient is confined to 1 level of the home with no toilet on that level Marilou Tomlin APRNWEST [facility] Department of Surgery - Trauma [phone]01-13-2025 NoteThe findings from this face to [...] is provided in the home Marilou Tomlin APRN-[facility] Department of Surgery - Trauma [phone]01-13-2025 NoteThe findings from this face to [...] been discussed with the patient Marilou Tomlin POWER REACTOR SUPERVISOR-LEAD TECHNOLOGIST IN CYTOGENETICS Department of Surgery - Trauma [phone] NotePhysical Therapy Physical Therapy Evaluation Patient [...] demo General Assessment General Assessment Hearing: mild ATMAUTLUAK Skin Integrity: alvaro wrap to RLE, wound [...] Level of Function Prior Function Level of Audrain: Independent with ADLs and functional transfers, Independent [...] deficits Perception Inattention/Neglect: A (more content not included)...[facility]01-13-2025 Note Attestation signed by Gabriel Seay [...] meet criteria for admission to IPR: Assessment: Saunders fracture of the right tibial shaft and [...] Plan of Care: Patient with diagnosis of Saunders fracture of the right tibial shaft and [...] TID wit (more content not included)... [facility]01-13-2025 NoteOccupational Therapy Occupational Therapy Evaluation Patient [...] male admitted 09/23/24 as a transfer from [facility] complaining of R tibial shaft transverse [...] carryover General Assessment General Assessment Hearing: Mild AT[place] Skin Integrity: ALVARO wrap to RLE, DFU [...] LLE heel WB de (more content not included)...[facility]01-13-2025 NoteOrthopaedic Surgery Orthopaedic Surgery Progress Note [...] Rivas MD 09/25/24 7:02 AM Ortho Pager: [phone] Hospitals Portage [facility]01-13-2025 Note [facility] Trauma Surgery Progress Note Subjective Subjective: Patient [...] kg (309 lb 4.9 oz) (09/25 299) Vilas Coma Scale Score: 15 Intake/Output Summary (Last [...] Value Ventricular Rate 82 Atrial Rate 82 [place] Interval 164 QRS DURATION 92 QT Interval 386 QTC CALCULATION(BAZETT) 450 P Odell 61 R-Odell 18 T Wave Odell 69 Impression Normal sinus rhythm Normal ECG [...] lou-colace an (more content not included)... [facility]01-12-2025 [facility]UnChildren[facility] for [facility] Vascular Surgery/Wound Care CONSULTATION Reason for Consult: Left foot ulcer Subjective History of Present Illness: Matty Garces is a 53 y.o. male with a PMH of DM, HTN, HF and recent cellulitis to [facility] . He is admitted for transverse fracture [...] rhythm. Pulmonary: Effort: Pulmonar (more content not included)...[facility]01-12-2025 NoteOrthopaedic Surgery Orthopaedic Surgery Progress Note [...] BRO MD 09/24/24 10:29 PM Ortho Pager: [phone] Hospitals Portage Medical Center01-12-2025 Note Patient: Matty Garces Procedure Summary Date: 09/24/24 Room / Location: [facility] OPERATING ROOM 05 / [facility] Operating Room Anesthesia Start: 1020 Anesthesia [...] preop) Hydration status: acceptable No notable events documented.[facility]01-12-2025 Note Airway Date/Time: 09/24/2024 10:35 AM Urgency: elective General Information and Staff Patient location during procedure: OR Anesthesiologist: Jeffery Casey MD Resident/SCRAPER BURRER/CAA: Kenneth Marina MD Performed: resident/SCRAPER BURRER/CAA Indications and Patient Condition Indications for airway [...] approach: 1 Number of other approaches attempted: 0UnUniversity Hospitals Portage Medical Center 09-24-2024 NotePatient: Matty Garces Procedure Information Date/Time: 09/24/24 1000 Procedure: CLOSED INSERTION, INTRAMEDULLARY WENDY, TIBIA (Right: Leg Lower) Location: [facility] OPER[facility]OM 05 / [facility] Operating Room Surgeons: Sandrine Hahn MD [...] Value Ventricular Rate 97 Atrial Rate 97 [place] Interval 156 QRS DURATION 84 QT Interval 368 QTC CALCULATION(BAZETT) 467 P Odell 54 R-Odell 60 T Wave Odell 12 Impression Normal sinus rhythm Normal ECG [...] discussed with attending and resident. Additional Equipment RequestsMercy Health Defiance Hospital01-12-2025 Note Subjective Patient resting comfortably in [...] kg (304 lb 3.8 oz) (09/24 951) Vilas Coma Scale Score: 15 Intake/Output Summary (Last [...] wounds to LLE, wounds (more content not included)...[facility]01-12-2025 NotePhysical Therapy Name: Matty Garces Date of : 1970 Today's Date: 09/24/24 Pt is unable to be seen for therapy at this time secondary to Surgery today for fixation of frature. Will check back and complete therapy session as appropriate. Check No Charge Time attempted: 0759 Jaent Lovelace PT, [facility] HOSPITALUnUniversity Hospitals [facility]age [facility]01-12-2025 Note Orthopaedic Surgery Orthopaedic Surgery Progress Note [...] Rivas MD Orthopaedic Surgery, PGY-2 Ortho Pager [phone] 09/24/24 7:29 AM I am available via LoveIt 6a-6p. May contact the on-call resident with any concerns via the Orthopaedic pager at any time.[facility]10-22-2024 Telephone encounter Note* Telephone Encounter - Nita Anthony - 07/04/2024 4:10 PM EDT left message regarding prescriptions earlier today and not being at pharmacy. I did call back and spoke to advising they were sent this afternoon. had mentioned Dr. Geiger was also going to start a Vitamin B to help boost energy in the morning. [facility] [place]. [facility] [id number] Miscellaneous Notes* Telephone Encounter - Nita nAthony - 07/04/2024 4:10 PM EDT left message regarding prescriptions earlier today and not being at pharmacy. I did call back and spoke to advising they were sent this afternoon. had mentioned Dr. Geiger was also going to start a Vitamin B to help boost energy in the morning. [facility] in [place]. documented in this encounterWestern Missouri Mental Health [id number] History of Present illness Narrative* Rubén Geiger [...] 1 mg, Oral, 2 times daily HYDROcodone-acetaminophen ([place]) 5-325 MG tablet hydrOXYzine pamoate (Vistaril) 25 [...] reflexes: Alycia's absent. Ankle clonus absent. Coordination Ljibrh-ul-bvrd, rapid alternating movements and enup-gm-yoye normal bilaterally without dysmetria. Gait Normal casual, [...] Follow up 3 months. documented in this encounterWestern Missouri Mental Health [id number] NotePROCEDURE: XR FOOT LT MIN 3 VIEWS [...] Electronically authenticated by: ALVINA CAICEDO Date: 2022-03-26 10:47[facility] Hospital Discharge instructions Patient Education 02/25/2022 [...] Watch the hydrocele for any changes. Take trhz-juf-ygwyarx and prescription medicines only as told by [...] 02/17/2011 Document Revised: 09/10/2018 Document Reviewed: 09/10/2018 [employer] Patient Education 2020 [employer]. Follow Up Care 01/28/2022 10:36:35 With:Mitchel DELGADO, [place] Gregorio, URO Address: When: Unknown [facility] evaluation + Plan note No data available for this section [facility] evaluation noteNo assessment information available [facility] Work Phone: Evaluation note* Diagnosis Excessive daytime [...] with status migrainosus documented in this encounter [facility] HealthcareEvaluation note* Diagnosis Onset Date Resolution Status Admit Date Hypertrophy of bone of lower leg noneactive May 07 11:21am Fracture of right tibia and fibula noneactive May 07 11:21am Right leg pain noneactive April 11:21am [facility] Work Phone: Evaluation note* Diagnosis Excessive daytime sleepiness Primary insomnia Persistent disorder of initiating or maintaining sleep documented in this encounter [facility] HealthcareEvaluation note* Diagnosis Excessive daytime sleepiness Obstructive sleep apnea Obstructive sleep apnea (adult) (pediatric) documented in this encounter [facility] HealthcareProgress note No data available for this section [facility] reason for referral (narrative)No reason for referral information availableMemorial [facility] Work Phone: Summary Purpose Family History No [...] 11:42am Hospital Course Note MR#: [id number] I [facility] [...] section and content) DATE CREATED AUTHOR 07/19/2019 [facility] DATE CREATED AUTHOR AUTHOR'S ORGANIZ ATION 02/27/2022 [facility] DATE CREATED AUTHOR AUTHOR'S ORGANIZ ATION 12/08/2022 [facility] DATE CREATED AUTHOR AUTHOR'S ORGANIZ ATION 12/03/2023 [facility] DATE CREATED AUTHOR AUTHOR'S ORGANIZ ATION 10/15/2024 [facility] DATE CREATED AUTHOR AUTHOR'S ORGANIZ ATION 04/05/2025 [facility] DATE CREATED AUTHOR AUTHOR'S ORGANIZ ATION 05/30/2025 [facility] Care Team (unrecognized sect ion and content) Team Status: Inactive Member Role Status Dates Trey Vallejo DPM MS Attending Provider Active Start: January 03, 2024 End: January 03, 2024 Supply Requirements Officer Relationship Specialty Start Date End Date Venus Jaeger MD [address] [facility] [place] [address] PCP - General Family Medicine 01/10/24 Supply Requirements Officer Relationship Specialty Start Date End Date Venus Jaeger MD [address] [facility] [place] [address] PCP - General Family Medicine 01/10/24 Supply Requirements Officer Relationship Specialty Start Date End Date Venus Jaeger MD [address] [facility] [place] [address] PCP - General Family Medicine 01/10/24 Supply Requirements Officer Relationship Specialty Start Date End Date Venus Jaeger MD [address] [facility] [place] [address] PCP - General Family Medicine 01/10/24 Team Status: Inactive Member Role Status Dates Trey Vallejo DPM MS Attending Provider Active Start: September 21, 2024 End: September 21, 2024 Supply Requirements Officer Relationship Specialty Start Date End Date Venus Jaeger MD [address] [facility] [place] [address] PCP - General Family Medicine 01/10/24 Supply Requirements Officer Relationship Specialty Start Date End Date Venus Jaeger MD [address] [facility] [place] [address] PCP - General Family Medicine 01/10/24 Supply Requirements Officer Relationship Specialty Start Date End Date Venus Jaeger MD [address] [facility] [place] [address] PCP - General Family Medicine 01/10/24 Supply Requirements Officer Relationship Specialty Start Date End Date Venus Jaeger MD [address] [place] [address] PCP - General Family Medicine 01/10/24 Supply Requirements Officer Relationship Specialty Start Date End Date Venus Jaeger MD [address] [place] [address] PCP - General Family Medicine 01/10/24 Supply Requirements Officer Relationship Specialty Start Date End Date Venus Jaeger MD PCP - General Family Medicine 01/10/24 Supply Requirements Officer Relationship Specialty Start Date End Date Venus Jaeger MD PCP - General Family Medicine 01/10/24 Supply Requirements Officer Relationship Specialty Start Date End Date Venus [...] May 07, 2025 End: May 07, 2025 Supply Requirements Officer Relationship Specialty Start Date End Date Venus Jaeger MD PCP - General Family Medicine 01/10/24 Supply Requirements Officer Relationship Specialty Start Date End Date Venus [...] BE BASED ON THE PRIMARY CLINICAL RECORDS. [facility] [employer] [facility]. provides no warranty or guarantee of the accuracy or completeness of information in this document.
--- NOTE | 2025-06-16 03:25 | PHOTOS ---
right leg and foot
--- NOTE | 2025-06-16 03:29 | PHOTOS ---
left leg and foot
[2025-06-16] MEDS: VANCOMYCIN HCL 2,000 MG in 0.9 % SODIUM CHLORIDE 500 ML 250 MG IV (04:21)
[2025-06-16] MEDS: POTASSIUM CHLORIDE 10 MEQ ER TABLET 30 MEQ PO (05:49)
[2025-06-16] MEDS: 0.9 % SODIUM CHLORIDE 1,000 ML 100 ML IV (05:49)
[2025-06-16] MEDS: APIXABAN 5 MG TABLET PO ×2 (09:25→21:07)
[2025-06-16] MEDS: FUROSEMIDE 20 MG TABLET PO (09:25)
[2025-06-16] MEDS: MODAFINIL 100 MG TABLET 200 MG PO ×2 (09:25→21:07)
[2025-06-16] MEDS: ASPIRIN 81 MG TABLET.DR PO (09:25)
[2025-06-16] MEDS: POTASSIUM CHLORIDE 10 MEQ ER TABLET PO ×2 (09:26→21:07)
[2025-06-16] MEDS: CARVEDILOL 25 MG TABLET PO ×2 (09:26→21:07)
[2025-06-16] MEDS: AMANTADINE HCL 100 MG CAPSULE PO ×2 (09:26→21:07)
[2025-06-16] MEDS: DOXAZOSIN MESYLATE 2 MG TABLET 8 MG PO (09:26)
[2025-06-16] MEDS: GABAPENTIN 300 MG CAPSULE 600 MG PO (09:26)
[2025-06-16] MEDS: MULTIVITAMIN TABLET 1 TAB PO (09:26)
[2025-06-16] MEDS: CITALOPRAM HYDROBROMIDE 20 MG TABLET 40 MG PO (09:26)
[2025-06-16] MEDS: PANTOPRAZOLE SODIUM 40 MG TABLET.DR PO (09:26)
[2025-06-16] MEDS: SUMATRIPTAN SUCCINATE 50 MG TABLET 100 MG PO (09:30)
--- NOTE | 2025-06-16 10:35 | PM.HP ---
HPI H&P: HPI History of Present Illness Chief complaint: LE PAIN, FOOT INFECTION Narrative: This is a 54-year-old man who came to the emergency room in the overnight hours and got initial admission orders by my colleague Dr. Ernandez. About 1 week ago he scuffed the bottom of his left great toe while doing some yard work. The patient says that he was putting some of that honey stuff on the wound at home. But a couple days before he came in the left big toe began to swell and began to have drainage and had a foul odor. The patient became very concerned about gangrene. So he came to the ER late on a Wednesday night/early Wednesday morning. In the ER he was administered IV vancomycin and IV Zosyn. When I go to see the patient he indicates that he has been seeing podiatry with Dr. Vallejo for a variety of issues for a long time. He has a wound on the right foot that has been healing slowly. He has a history of tib-fib fracture to the left lateral ankle that was treated with plates and screws. He then describes that a few months ago he had a right sided fracture that was treated by the orthopedic surgery people at [facility] with a madhu they got inserted in the knee and then went all the way down the bone. The patient says that he does not have diabetes. He does have polyneuropathy of an uncertain clinical significance, and he describes getting EMG and NCS studies done by the neurologists office. And he has chronic bony changes to both ankles that do resemble some early Charcot changes. He denies having shaking whole - body fevers or chills or rigors at home but admits that he may not always pay attention to those symptoms because he feels hot and sweaty all the time anyway. He has been getting jolts of electrical-like pain from that wound on the right great toe but says he sometimes gets jolts of that pain from the left foot anyway. Sometime over the summer, around March, the patient was found to have a deep vein thrombus in his right leg. His medication list looks like he has taken the correct dose of 10 mg of Eliquis twice daily to start for 3 weeks and now is on 5 mg twice daily after that. The patient admits that he does not know most of the medications on his list. Opioid HPI Opioid Management Most Recent Pain and Opioid Data: Last Pain Scale 5 Today, 08:00 Last Pain Assessment Today, 04:00 Last ORT Total Score 0 Today, 03:40 Last ORT Risk Category Low Risk Today, 03:40 Review of Systems ROS Narrative 10 point review of systems is completed and is negative except as mentioned elsewhere in this documentation. [facility] Medical History DVT (deep venous thrombosis) ?I82.409 - Acute embolism and thrombosis of unspecified deep veins of unspecified lower extremity (ICD-10) Cellulitis of right leg ?L03.115 - Cellulitis of right lower limb (ICD-10) Pain in right leg ?M79.604 - Pain in right leg (ICD-10) Type 2 diabetes mellitus with foot ulcer ?E11.621 - Type 2 diabetes mellitus with foot ulcer (ICD-10) ?L97.509 - Non-pressure chronic ulcer of other part of unspecified foot with unspecified severity (ICD-10) Type 2 diabetes mellitus with diabetic polyneuropathy ?E11.42 - Type 2 diabetes mellitus with diabetic polyneuropathy (ICD-10) Acute hypercapnic respiratory failure ?J96.02 - Acute respiratory failure with hypercapnia (ICD-10) Foot ulcer ?L97.509 - Non-pressure chronic ulcer of other part of unspecified foot with unspecified severity (ICD-10) Cellulitis of left leg ?L03.116 - Cellulitis of left lower limb (ICD-10) Chronic foot ulcer ?L97.509 - Non-pressure chronic ulcer of other part of unspecified foot with unspecified severity (ICD-10) Chronic pain syndrome ?G89.4 - Chronic pain syndrome (ICD-10) Lumbar spondylosis ?M47.816 - Spondylosis without myelopathy or radiculopathy, lumbar region (ICD-10) Peripheral neuropathy ?G62.9 - Polyneuropathy, unspecified (ICD-10) Type 2 diabetes mellitus ?E11.9 - Type 2 diabetes mellitus without complications (ICD-10) Closed fracture of left distal fibula ?S82.832A - Other fracture of upper and lower end of left fibula, initial encounter for closed fracture (ICD-10) Ankle fracture ?S82.899A - Other fracture of unspecified lower leg, initial encounter for closed fracture (ICD-10) Prolonged emergence from general anesthesia ?T88.59XA - Other complications of anesthesia, initial encounter (ICD-10) Pain management contract signed ?Z02.89 - Encounter for other administrative examinations (ICD-10) Back pain ?M54.9 - Dorsalgia, unspecified (ICD-10) PTSD (post-traumatic stress disorder) ?F43.10 - Post-traumatic stress disorder, unspecified (ICD-10) Depression ?F32.A - Depression, unspecified (ICD-10) Dysphagia ?R13.10 - Dysphagia, unspecified (ICD-10) Uvulitis ?K12.2 - Cellulitis and abscess of mouth (ICD-10) Insomnia ?G47.00 - Insomnia, unspecified (ICD-10) Migraine ?G43.909 - Migraine, unspecified, not intractable, without status migrainosus (ICD-10) GERD (gastroesophageal reflux disease) ?K21.9 - Gastro-esophageal reflux disease without esophagitis (ICD-10) Dyspnea on exertion ?R06.09 - Other forms of dyspnea (ICD-10) Heart valve disorder ?I38 - Endocarditis, valve unspecified (ICD-10) Hypoglycemia ?E16.2 - Hypoglycemia, unspecified (ICD-10) Delayed recovery from anesthesia Chronic foot ulcer ?L97.509 - Non-pressure chronic ulcer of other part of unspecified foot with unspecified severity (ICD-10) 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 - Central serous chorioretinopathy, unspecified eye (ICD-10) Chronic pain ?G89.29 - Other chronic pain (ICD-10) Narcolepsy ?G47.419 - 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) Anxiety ?F41.9 - Anxiety disorder, unspecified (ICD-10) Upper back pain ?M54.9 - Dorsalgia, unspecified (ICD-10) Low back pain ?M54.50 - Low back pain, unspecified (ICD-10) TMJ (dislocation of temporomandibular joint) ?S03.00XA - Dislocation of jaw, unspecified side, initial encounter (ICD-10) Obesity ?E66.9 - Obesity, unspecified (ICD-10) Sleep apnea ?G47.30 - Sleep apnea, unspecified (ICD-10) Hypertension ?I10 - Essential (primary) hypertension (ICD-10) Surgical History H/O foot surgery ?Z98.890 - Other specified postprocedural states (ICD-10) H/O radiofrequency ablation (RFA) of nerve of lumbar spine ?Z98.890 - Other specified postprocedural states (ICD-10) History of fusion of cervical spine ?Z98.1 - Arthrodesis status (ICD-10) H/O inguinal hernia repair ?Z98.890 - Other specified postprocedural states (ICD-10) ?Z87.19 - Personal history of other diseases of the digestive system (ICD-10) H/O repair of rotator cuff ?Z98.890 - Other specified postprocedural states (ICD-10) History of uvulopalatopharyngoplasty ?Z98.890 - Other specified postprocedural states (ICD-10) Family History Father Family history of CHF (congestive heart failure) Family history of diabetes mellitus Family history of hypertension Grandfather Family history of myocardial infarction Family history of stroke Grandmother Family history of stroke Social History Within the past year, how often did you have a drink containing alcohol: 2-4 times a month Within the past year, how many standard drinks containing alcohol did you have on a typical day: 1 or 2 Within the past year, how often did you have six or more drinks on one occasion: less than monthly Total score: 1 Score interpretation: A score less than 4 is consistent with normal alcohol consumption. Smoking status: Never smoker Non-prescribed substance use: cannabis (any form) Previous occupational history: unemployed Highest level of school completed/degree received: some college, no degree Are you now , , , , never or living with a partner: Little interest or pleasure in doing things: several days Feeling down, depressed, or hopeless: several days Feel stressed/tense/nervous/anxious/difficulty sleeping: not at all Do you think of yourself as: straight/heterosexual Gender Identity: male Meds Home Medications and Allergies Home Medications ?Medication ?Instructions ?Recorded ?Confirmed ?Type carvedilol 25 mg tablet 25 mg PO BID 06/14/23 06/16/25 History doxazosin 8 mg tablet 8 mg PO DAILY 06/14/23 06/16/25 History furosemide 20 mg tablet 20 mg PO DAILY 06/14/23 06/16/25 History gabapentin 600 mg tablet 600 mg PO DAILY 06/14/23 06/16/25 History glycopyrrolate 1 mg tablet 1 mg PO BID 06/14/23 06/16/25 History pantoprazole 40 mg tablet,delayed 40 mg PO DAILY 06/14/23 06/16/25 History release simvastatin 20 mg tablet 20 mg PO .qhs 06/14/23 06/16/25 History modafinil 200 mg tablet 200 mg PO BID 09/04/23 06/16/25 History potassium chloride 10 mEq 10 meq PO Q12H 09/04/23 06/16/25 History tablet,extended release amantadine HCl 100 mg tablet 100 mg PO BID 12/28/23 06/16/25 History cholecalciferol (vitamin D3) 125 6,000 unit PO DAILY 12/28/23 06/16/25 History mcg (5,000 unit) capsule multivitamin (Daily Multi-Vitamin 1 tab PO DAILY 12/28/23 06/16/25 History tablet) biotin 10 mg tablet 10 mg PO DAILY 09/19/24 06/16/25 History citalopram 40 mg tablet 40 mg PO DAILY 09/20/24 06/16/25 History testosterone cypionate 200 mg/mL 300 mg IM Q14D 09/20/24 06/16/25 History intramuscular oil apixaban 5 mg tablet (Eliquis) 10 mg (2 x 5 mg) PO BID #60 tabs 03/06/25 06/16/25 Rx aspirin 81 mg tablet,delayed 81 mg PO DAILY 03/06/25 06/16/25 History release (Adult Low Dose Aspirin) meclizine 25 mg tablet 25 mg PO DAILY PRN dizziness 03/06/25 06/16/25 History ondansetron HCl 4 mg tablet 8 mg PO Q8H PRN nausea and vomiting 03/06/25 06/16/25 History sildenafil 25 mg tablet 25 mg PO Q24H 03/06/25 06/16/25 History sodium, calcium, magnesium, 4.5 g PO HS 03/06/25 06/16/25 History potassium oxybates 0.5 gram/mL oral soln (Xywav) sumatriptan succinate 100 mg 100 mg PO Q2H PRN migraine headache 03/06/25 06/16/25 History tablet (Imitrex) Allergies Allergy/AdvReac Type Severity Reaction Status Date / Time No Known Drug Allergies Allergy Verified 06/16/25 01:28 Exam Narrative Exam Narrative: Nurses note and vital signs reviewed. General: The patient is lying in bed sleeping with lights off saying that his migraine is almost gone. Skin: Warm, dry, no pallor noted.There is no rash noted. Head: Normocephalic, atraumatic Eye: Normal conjunctiva, normal sclera, EOMI. Cardiovascular: Regular Rate and Rhythm to auscultation without any murmurs. Respiratory: Clear to auscultation throughout. No wheezing. No rhonchi. No crackles. GI: Soft and nontender to palpation, with normal bowel sounds to auscultation. Neurologic: He is awake and alert and oriented x 3 with normal speech. Psychiatric: Mood and affect are normal. Lower extremities: Both lower extremities do not really have any gross edema in the legs to suggest ongoing (acute phase) deep vein thrombosis. Left food: Left hallux is swollen and enlarged to 50% and very mildly erythematous and there is a wound which is circular with missing skin, that is a quarter size in diameter and about 5 mm deep. No gross purulence is draining, and no rosenda redness of cellulitis is spreading up the toe at this time. The left lateral ankle area, palpating over the hardware, is not warm or hot or painful. Constitutional Vital Signs, click to edit/add: Last Vital Signs Temp 97.7 F 06/16/25 07:57 Pulse 78 06/16/25 07:57 Resp 20 06/16/25 07:57 BP 142/81 H 06/16/25 07:57 Pulse Ox 95 06/16/25 07:57 O2 Del Method Room Air 06/16/25 07:57 Results Labs Labs: Short CBC 06/16/25 Range/Units 02:00 WBC 8.6 (4.0-11.0) 10^3/uL Hgb 13.4 L (14.0-18.0) g/dL Hct 42.5 (42.0-54.0) % Plt Count 168 (150-450) 10^3/uL BMP 06/16/25 02:00 Sodium 142 Potassium 3.4 L Chloride 103 Carbon Dioxide 31.8 BUN 12.0 Creatinine 1.04 Glucose 116 H Calcium 9.3 Assessment and Plan Assessment and Plan (1) Open wound of left great toe: Qualifiers: Encounter type: initial encounter Qualified Code(s): S91.102A - Unspecified open wound of left great toe without damage to nail, initial encounter (2) DVT (deep venous thrombosis): Qualifiers: DVT location: lower extremity Affected thrombotic vein of extremity: unspecified vein of extremity Chronicity: unspecified Laterality: left Qualified Code(s): I82.402 - Acute embolism and thrombosis of unspecified deep veins of left lower extremity (3) Lumbar spondylosis: (4) Peripheral neuropathy: Qualifiers: Peripheral neuropathy type: polyneuropathy, other Qualified Code(s): G62.89 - Other specified polyneuropathies (5) Sleep apnea: Qualifiers: Sleep apnea type: unspecified type Qualified Code(s): G47.30 - Sleep apnea, unspecified (6) Narcolepsy: Plan Assessment: Open wound of the left great toe. Possible osteomyelitis. Possible bacteremia. Long-term medical problems: DVT about 3 months ago to the right lower extremity, on anticoagulation with Eliquis 5 mg twice daily. Neuropathy to the lower extremities, likely due to lumbar spine issues. Obstructive sleep apnea and narcolepsy. Plan: Hospital admission, with inpatient status. Continue IV antibiotics with Zosyn, and vancomycin dosed by pharmacy. Consideration was given to using Zyvox, but this would have drug to drug interactions with his mental health medications. Blood cultures are currently taken and pending. Other home medications have been reviewed and continued where he takes them at home. Anticipate consultation to podiatry once the weekend is over. X-ray of the emergency room did not show obvious osteomyelitis in the left foot but this patient may require an MRI, which can not be completed until Wednesday at the earliest. Check labs with BMP, CBC, ESR, and CRP daily. Continue the anticoagulation with Eliquis 5 mg twice daily that he takes at home.
[2025-06-16] MEDS: VANCOMYCIN HCL 1,750 MG in 0.9 % SODIUM CHLORIDE 500 ML 250 MG IV (16:00)
[2025-06-16] MEDS: ATORVASTATIN CALCIUM 10 MG TABLET PO (21:07)
[2025-06-17] MEDS: PIPERACILLIN SODIUM/TAZOBACTAM 3.375 GM in 0.9 % SODIUM CHLORIDE 50 ML IV ×3 (03:08→20:42)
[2025-06-17 03:12] VITALS: BP 146/86; PULSE 80; TEMP 36.6; O2SAT 95
[2025-06-17] MEDS: PANTOPRAZOLE SODIUM 40 MG TABLET.DR PO (05:47)
[2025-06-17 06:53] LABS: Hematocrit 46.1 % (42.0-54.0); Hemoglobin 14.8 g/dL (14.0-18.0); Immature Granulocytes Abs Auto 0.04 10^3/uL (0.00-0.03); Immature Granulocytes Pct Auto 0.5 % (0.0-0.5); Lymphocytes Absolute Auto 0.9 10^3/uL (1.2-3.8); Mean Corpuscular HGB Conc 32.1 g/dL (29.9-35.2); Mean Corpuscular Hemoglobin 28.5 pg (25.9-34.0); Mean Corpuscular Volume 88.8 fL (80.0-94.0); Platelet Count 191 10^3/uL (150-450); Red Blood Count 5.19 10^6/uL (4.70-6.10); White Blood Count 8.3 10^3/uL (4.0-11.0)
[2025-06-17 06:56] LABS: Anion Gap 12.7; Blood Urea Nitrogen 7.0 mg/dL (7.0-18.0); Calcium 8.5 mg/dL (8.5-10.1); Carbon Dioxide 29.1 mmol/L (21.0-32.0); Chloride 101 mmol/L (98-107); Estimated GFR (African America >60 (>=60 mL/min/1.73m^2); Estimated GFR (Non-African Ame >60 (>=60 mL/min/1.73m^2); Glucose 100 mg/dL (74-106); Potassium 3.8 mmol/L (3.5-5.1); Sodium 139 mmol/L (136-145)
[2025-06-17] MEDS: VANCOMYCIN HCL 1,750 MG in 0.9 % SODIUM CHLORIDE 500 ML 250 MG IV ×2 (07:05→20:42)
[2025-06-17 07:09] VITALS: BP 140/91; PULSE 76; TEMP 36.6; O2SAT 96
[2025-06-17] MEDS: POTASSIUM CHLORIDE 10 MEQ ER TABLET PO ×2 (09:01→20:42)
[2025-06-17] MEDS: CITALOPRAM HYDROBROMIDE 20 MG TABLET 40 MG PO (09:01)
[2025-06-17] MEDS: APIXABAN 5 MG TABLET PO ×2 (09:01→20:42)
[2025-06-17] MEDS: MULTIVITAMIN TABLET 1 TAB PO (09:01)
[2025-06-17] MEDS: ASPIRIN 81 MG TABLET.DR PO (09:01)
[2025-06-17] MEDS: DOXAZOSIN MESYLATE 2 MG TABLET 8 MG PO (09:01)
[2025-06-17] MEDS: GABAPENTIN 300 MG CAPSULE 600 MG PO (09:01)
[2025-06-17] MEDS: CARVEDILOL 25 MG TABLET PO ×2 (09:01→20:42)
[2025-06-17] MEDS: MODAFINIL 100 MG TABLET 200 MG PO ×2 (09:01→20:42)
[2025-06-17] MEDS: FUROSEMIDE 20 MG TABLET PO (09:02)
[2025-06-17] MEDS: AMANTADINE HCL 100 MG CAPSULE PO ×2 (09:03→20:42)
--- NOTE | 2025-06-17 11:07 | PM.IMPN1 ---
Progress Note: A&P Assessment and Plan (1) Open wound of left great toe: Qualifiers: Encounter type: initial encounter Qualified Code(s): S91.102A - Unspecified open wound of left great toe without damage to nail, initial encounter (2) DVT (deep venous thrombosis): Qualifiers: Affected thrombotic vein of extremity: unspecified vein of extremity Chronicity: unspecified DVT location: lower extremity Laterality: left Qualified Code(s): I82.402 - Acute embolism and thrombosis of unspecified deep veins of left lower extremity (3) Lumbar spondylosis: (4) Peripheral neuropathy: Qualifiers: Peripheral neuropathy type: polyneuropathy, other Qualified Code(s): G62.89 - Other specified polyneuropathies (5) Sleep apnea: Qualifiers: Sleep apnea type: unspecified type Qualified Code(s): G47.30 - Sleep apnea, unspecified (6) Narcolepsy: (7) Pre-diabetes: Plan Assessment: Open wound of the left great toe. Possible osteomyelitis. Possible bacteremia. A1C of 6.3 indicating pre-diabetes. Long-term medical problems: DVT about 3 months ago to the right lower extremity, now on anticoagulation with Eliquis 5 mg twice daily. Neuropathy to the lower extremities, likely due to lumbar spine issues. Obstructive sleep apnea and narcolepsy. Plan: Continue IV antibiotics with Zosyn, and vancomycin dosed by pharmacy. Consideration was given to using Zyvox, but this would have drug to drug interactions with his mental health medications. Blood cultures are currently taken and pending. Other home medications have been reviewed and continued the way that he takes them at home. Anticipate consultation to podiatry once the weekend is over. X-ray of the ER did not show obvious osteomyelitis in the left foot but this patient may require an MRI, which can not be completed until Wednesday at the earliest. Check labs with BMP, CBC, ESR, and CRP daily. Continue the anticoagulation with Eliquis 5 mg twice daily that he takes at home. Internal Medicine - PN: Subj Subjective Interval history: The patient feels about the same today. No new symptoms: No chest pain, no cough, no abdominal pain, no diarrhea, and no dysuria. Still getting brief shooting pains from his left great toe, but no pains from his left ankle or heel. This patient has had a lot of foot wounds and a lot of apparent foot infections, more than I would anticipate for a non-diabetic patient. His A1c did come back at 6.3. I counseled the patient that he has prediabetes and that he is just 0.2 points away from being in the diabetic region. The patient agreed to cut down on carbohydrates. He said I drink a lot of lemonade. And so I said that with reducing free carbohydrates and increasing his exercise he hopefully can prevent diabetes from developing over the next few decades. Exam Narrative Exam Narrative: General: The patient is lying in bed sleeping Shoulders: Muscle pain in his left trapezius. Pt states it was probably from slinging that sledge hammer. Cardiovascular: Regular Rate and Rhythm to auscultation without any murmurs. Respiratory: Clear to auscultation throughout. No wheezing. No rhonchi. No crackles. GI: Soft and nontender to palpation, with normal bowel sounds to auscultation. Lower extremities: Both lower extremities do not really have any gross edema in the legs to suggest ongoing (acute phase) deep vein thrombosis. Left FOOT: Left hallux is swollen and enlarged to 50% and very mildly erythematous and there is a wound which is circular with missing skin, that is a quarter size in diameter and about 5 mm deep. No gross purulence is draining, and no rosenda redness of cellulitis is spreading up the toe at this time. The left lateral ankle area, palpating over the hardware, is not warm or hot or painful. Constitutional Vital Signs, click to edit/add: Last Vital Signs Temp 98 F 06/17/25 07:09 Pulse 76 06/17/25 07:09 Resp 20 06/17/25 07:09 BP 140/91 06/17/25 07:09 Pulse Ox 96 06/17/25 07:09 O2 Del Method Room Air 06/17/25 07:09 Internal Medicine - PN: Obj Da Labs Labs: Laboratory Results - last 24 hr 06/16/25 06/17/25 09:35 05:45 WBC 8.3 RBC 5.19 Hgb 14.8 Hct 46.1 MCV 88.8 MCH 28.5 MCHC 32.1 RDW 13.8 Plt Count 191 MPV 10.2 Neut % (Auto) 79.0 H Lymph % (Auto) 10.3 L [place] % (Auto) 7.3 Eos % (Auto) 2.3 Baso % (Auto) 0.6 Neut # (Auto) 6.5 Lymph # (Auto) 0.9 L [place] # (Auto) 0.6 Eos # (Auto) 0.2 Baso # (Auto) 0.1 Abs Immat Gran (auto) 0.04 H Imm/Tot Granulo (auto) 0.5 ESR 61 H 88 H Sodium 139 Potassium 3.8 Chloride 101 Carbon Dioxide 29.1 Anion Gap 12.7 BUN 7.0 Creatinine 0.81 Est GFR ( Amer) >60 Est GFR (Non-Af Amer) >60 BUN/Creatinine Ratio 8.6 Glucose 100 Calcium 8.5 C-Reactive Protein 2.92 H
[2025-06-17] MEDS: 0.9 % SODIUM CHLORIDE 250 ML 10 ML IV (12:10)
[2025-06-17] MEDS: LOPERAMIDE HCL 2 MG CAPSULE PO (13:05)
[2025-06-17 14:30] VITALS: BP 149/87; PULSE 74; TEMP 37.2; O2SAT 96
[2025-06-17 19:00] VITALS: BP 143/77; PULSE 77; TEMP 36.5; O2SAT 97
[2025-06-17] MEDS: ATORVASTATIN CALCIUM 10 MG TABLET PO (21:01)
[2025-06-18 05:00] VITALS: BP 127/73; PULSE 72; TEMP 36.4; O2SAT 93
[2025-06-18] MEDS: PIPERACILLIN SODIUM/TAZOBACTAM 3.375 GM in 0.9 % SODIUM CHLORIDE 50 ML IV (05:11)
[2025-06-18] MEDS: PANTOPRAZOLE SODIUM 40 MG TABLET.DR PO (05:12)
[2025-06-18 05:54] LABS: Hematocrit 44.8 % (42.0-54.0); Hemoglobin 14.2 g/dL (14.0-18.0); Immature Granulocytes Abs Auto 0.05 10^3/uL (0.00-0.03); Immature Granulocytes Pct Auto 0.6 % (0.0-0.5); Lymphocytes Absolute Auto 1.0 10^3/uL (1.2-3.8); Mean Corpuscular HGB Conc 31.7 g/dL (29.9-35.2); Mean Corpuscular Hemoglobin 27.9 pg (25.9-34.0); Mean Corpuscular Volume 88.0 fL (80.0-94.0); Platelet Count 193 10^3/uL (150-450); Red Blood Count 5.09 10^6/uL (4.70-6.10); White Blood Count 7.7 10^3/uL (4.0-11.0)
[2025-06-18 06:03] LABS: Anion Gap 10.5; Blood Urea Nitrogen 8.0 mg/dL (7.0-18.0); Calcium 8.7 mg/dL (8.5-10.1); Carbon Dioxide 30.4 mmol/L (21.0-32.0); Chloride 102 mmol/L (98-107); Estimated GFR (African America >60 (>=60 mL/min/1.73m^2); Estimated GFR (Non-African Ame >60 (>=60 mL/min/1.73m^2); Glucose 82 mg/dL (74-106); Potassium 3.9 mmol/L (3.5-5.1); Sodium 139 mmol/L (136-145)
--- NOTE | 2025-06-18 07:45 | CM.NOTE ---
Rounds made with Dr. Ernandez, discussed with pt plan of care. oYni consulted for further recommendations. No discharge today, pt inpatient status.
[2025-06-18 07:58] VITALS: BP 140/88; PULSE 71; TEMP 37.1; O2SAT 92
[2025-06-18 08:05] VITALS: PULSE 71
[2025-06-18] MEDS: VANCOMYCIN HCL 1,750 MG in 0.9 % SODIUM CHLORIDE 500 ML 250 MG IV ×2 (09:30→19:49)
[2025-06-18] MEDS: APIXABAN 5 MG TABLET PO ×2 (09:34→21:36)
[2025-06-18] MEDS: ASPIRIN 81 MG TABLET.DR PO (09:34)
[2025-06-18] MEDS: AMANTADINE HCL 100 MG CAPSULE PO ×2 (09:34→21:36)
[2025-06-18] MEDS: MODAFINIL 100 MG TABLET 200 MG PO ×2 (09:35→21:36)
[2025-06-18] MEDS: DOXAZOSIN MESYLATE 2 MG TABLET 8 MG PO (09:35)
[2025-06-18] MEDS: POTASSIUM CHLORIDE 10 MEQ ER TABLET PO ×2 (09:36→21:36)
[2025-06-18] MEDS: GABAPENTIN 300 MG CAPSULE 600 MG PO (09:36)
[2025-06-18] MEDS: CITALOPRAM HYDROBROMIDE 20 MG TABLET 40 MG PO (09:36)
[2025-06-18] MEDS: CARVEDILOL 25 MG TABLET PO ×2 (09:36→21:36)
[2025-06-18] MEDS: FUROSEMIDE 20 MG TABLET PO (09:36)
[2025-06-18] MEDS: MULTIVITAMIN TABLET 1 TAB PO (09:37)
--- NOTE | 2025-06-18 11:04 | MR_ITS ---
[address] [address] Patient Name: MATTY WADE MRN: [id number] date: 1970 Sex: M Assigned Patient Location: [place] Current Patient Location: [place] Accession/Order Number: [id number] Exam Date: 06/18/2025 13:30 Report Date: 06/18/2025 19:34 At the request of: ROBIN TOBAR MD Procedure: MR foot LT wo con MR foot LT wo con 06/18/2025 2:35 PM SIGNS AND SYMPTOMS: ^Infected foot ulcer along the plantar aspect of the first toe r/o abscess or osteomyelitis PROTOCOL: Multiplanar multisequence MR images of the left foot without contrast COMPARISON: 06/16/2025. FINDINGS: Lisfranc ligament: Intact. Hallux: Osseous: There is marrow edema along the plantar aspect of the proximal phalanx of the great toe greatest along the plantar surface distally adjacent to the interphalangeal joint suspicious for osteomyelitis. Extensor tendon: Normal. Flexor tendon: Normal. First metatarsophalangeal joint: Moderate degenerative changes are noted. Hallux-sesamoid complex: Normal. Second ray: Osseous: Normal. Extensor tendon: Normal. Flexor tendon: Normal. Second metatarsophalangeal joint: Intact. Plantar plate: Normal. Third ray: Osseous: Normal. Extensor tendon: Normal. Flexor tendon: Normal. Third metatarsophalangeal joint: Intact. Plantar plate: Normal. Fourth ray: Osseous: Normal. Extensor tendon: Normal. Flexor tendon: Normal. Fourth metatarsophalangeal joint: Intact. Plantar plate: Normal. Fifth ray: Osseous: Normal. Extensor tendon: Normal. Flexor tendon: Normal. Fifth metatarsophalangeal joint: Intact. Plantar plate: Normal. Interspaces: Interdigital (Hu) neuroma: None. Intermetatarsal bursitis: None. Soft tissues: There is soft tissue ulceration along the base of the great toe beneath the interphalangeal joints with diffuse soft tissue swelling of the great toe consistent with cellulitis. Muscles: Normal. Bones: Achilles surface calcaneal spurring is noted. Nerves: Normal. Blood vessels: Normal. MR/MR foot LT wo con IMPRESSION: There is soft tissue ulceration along the base of the great toe beneath the interphalangeal joint. There is accompanying soft tissue swelling consistent with cellulitis. Marrow edema is noted along the plantar surface of the proximal phalanx of the great toe adjacent to the interphalangeal joint consistent with osteomyelitis. Impression dictated by: Francis Irving M.D. 06/18/2025 7:34 PM Dictation Location: [place] [address] Electronically authenticated by: [id number] Y Date: 06/18/2025 19:34
--- NOTE | 2025-06-18 11:14 | PM.PN ---
Progress Note: Subjective Subjective Interval history: Pain and discomfort in the left leg. No chest pain or palpitation. No abdominal pain, nausea or vomiting. Exam Narrative Exam Narrative: General: The patient is lying in bed sleeping Shoulders: Muscle pain in his left trapezius. Pt states it was probably from slinging that sledge hammer. Cardiovascular: Regular Rate and Rhythm to auscultation without any murmurs. Respiratory: Clear to auscultation throughout. No wheezing. No rhonchi. No crackles. GI: Soft and nontender to palpation, with normal bowel sounds to auscultation. Lower extremities: Both lower extremities do not really have any gross edema in the legs to suggest ongoing (acute phase) deep vein thrombosis. Left FOOT: Left hallux is swollen and enlarged to 50% and very mildly erythematous and there is a wound which is circular with missing skin, that is a quarter size in diameter and about 5 mm deep. No gross purulence is draining, and no rosenda redness of cellulitis is spreading up the toe at this time. The left lateral ankle area, palpating over the hardware, is not warm or hot or painful. Constitutional Vital Signs, click to edit/add: Last Vital Signs Temp 98.8 F 06/18/25 07:58 Pulse 71 06/18/25 08:05 Resp 18 06/18/25 08:05 BP 140/88 06/18/25 07:58 Pulse Ox 92 L 06/18/25 07:58 O2 Del Method Room Air 06/18/25 07:58 Progress Note: Objective Labs Labs: Short CBC 06/18/25 Range/Units 05:29 WBC 7.7 (4.0-11.0) 10^3/uL Hgb 14.2 (14.0-18.0) g/dL Hct 44.8 (42.0-54.0) % Plt Count 193 (150-450) 10^3/uL BMP 06/18/25 05:29 Sodium 139 Potassium 3.9 Chloride 102 Carbon Dioxide 30.4 BUN 8.0 Creatinine 1.01 Glucose 82 Calcium 8.7 Progress Note: A&P Assessment and Plan (1) Open wound of left great toe: Qualifiers: Encounter type: initial encounter Qualified Code(s): S91.102A - Unspecified open wound of left great toe without damage to nail, initial encounter (2) DVT (deep venous thrombosis): Qualifiers: Affected thrombotic vein of extremity: unspecified vein of extremity Chronicity: unspecified DVT location: lower extremity Laterality: left Qualified Code(s): I82.402 - Acute embolism and thrombosis of unspecified deep veins of left lower extremity (3) Lumbar spondylosis: (4) Peripheral neuropathy: Qualifiers: Peripheral neuropathy type: polyneuropathy, other Qualified Code(s): G62.89 - Other specified polyneuropathies (5) Sleep apnea: Qualifiers: Sleep apnea type: unspecified type Qualified Code(s): G47.30 - Sleep apnea, unspecified (6) Narcolepsy: (7) Pre-diabetes: Plan Infected foot ulcer. Previous MRSA infection. Continue vancomycin. Change Zosyn to ceftazidime. MRI rule out abscess and/or osteomyelitis Arterial study rule out PVD Diabetes Accu-Chek with sliding scale coverage. Reported history of DVT Continue Eliquis Neuropathy Continue Neurontin Hypertension Continue meds Chronic, subacute medical conditions not listed above, abnormal labs and imaging. These would need to be addressed. Could be addressed later on or in the outpatient setting by PCP collaboration with other needed outpatient providers when time and condition are appropriate.
--- NOTE | 2025-06-18 11:39 | SWNOTE1 ---
SW consulted for transportation. SW stopped in and spoke with pt in regards to transportation issues. Pt does have several appointments that he does need to get to. He does voice he has family/friends that can help him. He voiced frustrations with making sure they remember to transport and that he can be a burden to those people. Pt does live in [facility]. SW did advise there is [employer] transpotation for [facility], but SW is unsure if they travel outside of [facility]. Pt stated that they do, but the people who go out of [facility] end up waiting the longest to get picked back up. SW asked pt if he ever called his insurance, pt has [employer] medicaid. Pt was not aware of this. SW to provide number, but did advise has to call several days in advance and potential of waiting to be picked back up as well. SW did advise since he is ambulatory that he could do a taxi out of [place], but that would be out of pocket cost. Pt did voiced frustrations with resources, spoke about dental resources he has tried using in past as well. SW did provide pt with phone number off the back of his insurance card that stated transportation scheduling. He voiced appreciation.
--- NOTE | 2025-06-18 13:14 | XR_ITS ---
[address] [address] Patient Name: MATTY WADE MRN: [id number] date: 1970 Sex: M Assigned Patient Location: [place] Current Patient Location: [place] Accession/Order Number: [id number] Exam Date: 06/18/2025 13:15 Report Date: 06/18/2025 13:22 At the request of: ROBIN TOBAR MD Procedure: XR foreign body eye UBALDO Orbits 2 views. Reason for exam: Pre-MRI. FINDINGS: No radiopaque foreign body. No bony destruction. XR/XR foreign body eye UBALDO IMPRESSION: No radio opaque foreign body. Impression dictated by: Bora Gomez Jr. DMarileeOMarilee 06/18/2025 1:22 PM Dictation Location: [place] [address] Electronically authenticated by: [id number] Y Date: 06/18/2025 13:22
[2025-06-18] MEDS: DICLOFENAC SODIUM 1% 100 GM TUBE TOPICAL ×2 (14:11→17:56)
[2025-06-18] MEDS: CEFTAZIDIME 1,000 MG in 0.9 % SODIUM CHLORIDE 50 ML 100 MG IV (17:26)
[2025-06-18 19:52] VITALS: BP 150/85; PULSE 76; TEMP 36.6; O2SAT 97
[2025-06-18] MEDS: ATORVASTATIN CALCIUM 10 MG TABLET PO (21:36)
[2025-06-19] MEDS: CEFTAZIDIME 1,000 MG in 0.9 % SODIUM CHLORIDE 50 ML 100 MG IV ×3 (02:45→17:50)
[2025-06-19] MEDS: PANTOPRAZOLE SODIUM 40 MG TABLET.DR PO (05:11)
[2025-06-19] MEDS: DICLOFENAC SODIUM 1% 100 GM TUBE TOPICAL ×4 (05:12→21:15)
[2025-06-19 05:59] LABS: Anion Gap 11.2; Blood Urea Nitrogen 10.0 mg/dL (7.0-18.0); Calcium 9.3 mg/dL (8.5-10.1); Carbon Dioxide 30.7 mmol/L (21.0-32.0); Chloride 103 mmol/L (98-107); Estimated GFR (African America >60 (>=60 mL/min/1.73m^2); Estimated GFR (Non-African Ame >60 (>=60 mL/min/1.73m^2); Glucose 139 mg/dL (74-106); Potassium 3.9 mmol/L (3.5-5.1); Sodium 141 mmol/L (136-145)
[2025-06-19 08:18] VITALS: BP 136/89; PULSE 69; TEMP 36.4; O2SAT 94
[2025-06-19] MEDS: AMANTADINE HCL 100 MG CAPSULE PO ×2 (08:31→21:13)
[2025-06-19] MEDS: MODAFINIL 100 MG TABLET 200 MG PO ×2 (08:31→21:13)
[2025-06-19] MEDS: MULTIVITAMIN TABLET 1 TAB PO (08:31)
[2025-06-19] MEDS: CARVEDILOL 25 MG TABLET PO ×2 (08:31→21:13)
[2025-06-19] MEDS: GABAPENTIN 300 MG CAPSULE 600 MG PO (08:31)
[2025-06-19] MEDS: APIXABAN 5 MG TABLET PO (08:31)
[2025-06-19] MEDS: ASPIRIN 81 MG TABLET.DR PO (08:31)
[2025-06-19] MEDS: DOXAZOSIN MESYLATE 2 MG TABLET 8 MG PO (08:31)
[2025-06-19] MEDS: CITALOPRAM HYDROBROMIDE 20 MG TABLET 40 MG PO (08:31)
[2025-06-19] MEDS: POTASSIUM CHLORIDE 10 MEQ ER TABLET PO ×2 (08:32→21:13)
[2025-06-19] MEDS: VANCOMYCIN HCL 1,750 MG in 0.9 % SODIUM CHLORIDE 500 ML 250 MG IV ×2 (08:32→20:11)
[2025-06-19] MEDS: 0.9 % SODIUM CHLORIDE 250 ML 10 ML IV (08:32)
[2025-06-19] MEDS: FUROSEMIDE 20 MG TABLET PO (08:32)
--- NOTE | 2025-06-19 10:06 | CM.NOTE ---
Rounds made with . scheduled to see the patient today due to MRI results. 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
--- NOTE | 2025-06-19 10:25 | PM.CN ---
Consult Note: [facility] Data of Consult Consult date: 06/19/25 Requesting Physician: Bonnie Ernandez MD Primary Care Provider: Caden Mendez MD Consult Narrative Reason for consult: Left diabetic foot infection Narrative: Patient is a 54-year-old male with pre-diabetes, peripheral neuropathy and recurrent left great toe ulceration. Over the weekend patient noticed increased redness swelling and malodor to the right great toe prompting him to present to the emergency department and was ultimately admitted. Lower extremity arterial Doppler showed no evidence of stenosis. MRI demonstrated findings consistent with osteomyelitis of the hallux proximal phalanx. Although since receiving broad-spectrum antibiotics he relates that he is feeling somewhat better although has a poor appetite. He is on Eliquis for previous DVT. cc:: CC: Bonnie Ernandez MD Review of Systems ROS Status of ROS 10 or more systems reviewed and unremarkable except as noted in history and below [facility] Medical History DVT (deep venous thrombosis) ?I82.409 - Acute embolism and thrombosis of unspecified deep veins of unspecified lower extremity (ICD-10) Cellulitis of right leg ?L03.115 - Cellulitis of right lower limb (ICD-10) Pain in right leg ?M79.604 - Pain in right leg (ICD-10) Type 2 diabetes mellitus with foot ulcer ?E11.621 - Type 2 diabetes mellitus with foot ulcer (ICD-10) ?L97.509 - Non-pressure chronic ulcer of other part of unspecified foot with unspecified severity (ICD-10) Type 2 diabetes mellitus with diabetic polyneuropathy ?E11.42 - Type 2 diabetes mellitus with diabetic polyneuropathy (ICD-10) Acute hypercapnic respiratory failure ?J96.02 - Acute respiratory failure with hypercapnia (ICD-10) Foot ulcer ?L97.509 - Non-pressure chronic ulcer of other part of unspecified foot with unspecified severity (ICD-10) Cellulitis of left leg ?L03.116 - Cellulitis of left lower limb (ICD-10) Chronic foot ulcer ?L97.509 - Non-pressure chronic ulcer of other part of unspecified foot with unspecified severity (ICD-10) Chronic pain syndrome ?G89.4 - Chronic pain syndrome (ICD-10) Lumbar spondylosis ?M47.816 - Spondylosis without myelopathy or radiculopathy, lumbar region (ICD-10) Peripheral neuropathy ?G62.9 - Polyneuropathy, unspecified (ICD-10) Type 2 diabetes mellitus ?E11.9 - Type 2 diabetes mellitus without complications (ICD-10) Closed fracture of left distal fibula ?S82.832A - Other fracture of upper and lower end of left fibula, initial encounter for closed fracture (ICD-10) Ankle fracture ?S82.899A - Other fracture of unspecified lower leg, initial encounter for closed fracture (ICD-10) Prolonged emergence from general anesthesia ?T88.59XA - Other complications of anesthesia, initial encounter (ICD-10) Pain management contract signed ?Z02.89 - Encounter for other administrative examinations (ICD-10) Back pain ?M54.9 - Dorsalgia, unspecified (ICD-10) PTSD (post-traumatic stress disorder) ?F43.10 - Post-traumatic stress disorder, unspecified (ICD-10) Depression ?F32.A - Depression, unspecified (ICD-10) Dysphagia ?R13.10 - Dysphagia, unspecified (ICD-10) Uvulitis ?K12.2 - Cellulitis and abscess of mouth (ICD-10) Insomnia ?G47.00 - Insomnia, unspecified (ICD-10) Migraine ?G43.909 - Migraine, unspecified, not intractable, without status migrainosus (ICD-10) GERD (gastroesophageal reflux disease) ?K21.9 - Gastro-esophageal reflux disease without esophagitis (ICD-10) Dyspnea on exertion ?R06.09 - Other forms of dyspnea (ICD-10) Heart valve disorder ?I38 - Endocarditis, valve unspecified (ICD-10) Hypoglycemia ?E16.2 - Hypoglycemia, unspecified (ICD-10) Delayed recovery from anesthesia Chronic foot ulcer ?L97.509 - Non-pressure chronic ulcer of other part of unspecified foot with unspecified severity (ICD-10) 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 - Central serous chorioretinopathy, unspecified eye (ICD-10) Chronic pain ?G89.29 - Other chronic pain (ICD-10) Narcolepsy ?G47.419 - 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) Anxiety ?F41.9 - Anxiety disorder, unspecified (ICD-10) Upper back pain ?M54.9 - Dorsalgia, unspecified (ICD-10) Low back pain ?M54.50 - Low back pain, unspecified (ICD-10) TMJ (dislocation of temporomandibular joint) ?S03.00XA - Dislocation of jaw, unspecified side, initial encounter (ICD-10) Obesity ?E66.9 - Obesity, unspecified (ICD-10) Sleep apnea ?G47.30 - Sleep apnea, unspecified (ICD-10) Hypertension ?I10 - Essential (primary) hypertension (ICD-10) Surgical History H/O foot surgery ?Z98.890 - Other specified postprocedural states (ICD-10) H/O radiofrequency ablation (RFA) of nerve of lumbar spine ?Z98.890 - Other specified postprocedural states (ICD-10) History of fusion of cervical spine ?Z98.1 - Arthrodesis status (ICD-10) H/O inguinal hernia repair ?Z98.890 - Other specified postprocedural states (ICD-10) ?Z87.19 - Personal history of other diseases of the digestive system (ICD-10) H/O repair of rotator cuff ?Z98.890 - Other specified postprocedural states (ICD-10) History of uvulopalatopharyngoplasty ?Z98.890 - Other specified postprocedural states (ICD-10) Family History Father Family history of CHF (congestive heart failure) Family history of diabetes mellitus Family history of hypertension Grandfather Family history of myocardial infarction Family history of stroke Grandmother Family history of stroke Social History Within the past year, how often did you have a drink containing alcohol: 2-4 times a month Within the past year, how many standard drinks containing alcohol did you have on a typical day: 1 or 2 Within the past year, how often did you have six or more drinks on one occasion: less than monthly Total score: 1 Score interpretation: A score less than 4 is consistent with normal alcohol consumption. Smoking status: Never smoker Non-prescribed substance use: cannabis (any form) Previous occupational history: unemployed Highest level of school completed/degree received: some college, no degree Are you now , , , , never or living with a partner: Little interest or pleasure in doing things: several days Feeling down, depressed, or hopeless: several days Feel stressed/tense/nervous/anxious/difficulty sleeping: not at all Do you think of yourself as: straight/heterosexual Gender Identity: male Meds Home Medications and Allergies Home Medications ?Medication ?Instructions ?Recorded ?Confirmed ?Type carvedilol 25 mg tablet 25 mg PO BID 06/14/23 06/16/25 History doxazosin 8 mg tablet 8 mg PO DAILY 06/14/23 06/16/25 History furosemide 20 mg tablet 20 mg PO DAILY 06/14/23 06/16/25 History gabapentin 600 mg tablet 600 mg PO DAILY 06/14/23 06/16/25 History glycopyrrolate 1 mg tablet 1 mg PO BID 06/14/23 06/16/25 History pantoprazole 40 mg tablet,delayed 40 mg PO DAILY 06/14/23 06/16/25 History release simvastatin 20 mg tablet 20 mg PO .qhs 06/14/23 06/16/25 History modafinil 200 mg tablet 200 mg PO BID 09/04/23 06/16/25 History potassium chloride 10 mEq 10 meq PO Q12H 09/04/23 06/16/25 History tablet,extended release amantadine HCl 100 mg tablet 100 mg PO BID 12/28/23 06/16/25 History cholecalciferol (vitamin D3) 125 6,000 unit PO DAILY 12/28/23 06/16/25 History mcg (5,000 unit) capsule multivitamin (Daily Multi-Vitamin 1 tab PO DAILY 12/28/23 06/16/25 History tablet) biotin 10 mg tablet 10 mg PO DAILY 09/19/24 06/16/25 History citalopram 40 mg tablet 40 mg PO DAILY 09/20/24 06/16/25 History testosterone cypionate 200 mg/mL 300 mg IM Q14D 09/20/24 06/16/25 History intramuscular oil apixaban 5 mg tablet (Eliquis) 10 mg (2 x 5 mg) PO BID #60 tabs 03/06/25 06/16/25 Rx aspirin 81 mg tablet,delayed 81 mg PO DAILY 03/06/25 06/16/25 History release (Adult Low Dose Aspirin) meclizine 25 mg tablet 25 mg PO DAILY PRN dizziness 03/06/25 06/16/25 History ondansetron HCl 4 mg tablet 8 mg PO Q8H PRN nausea and vomiting 03/06/25 06/16/25 History sildenafil 25 mg tablet 25 mg PO Q24H 03/06/25 06/16/25 History sodium, calcium, magnesium, 4.5 g PO HS 03/06/25 06/16/25 History potassium oxybates 0.5 gram/mL oral soln (Xywav) sumatriptan succinate 100 mg 100 mg PO Q2H PRN migraine headache 03/06/25 06/16/25 History tablet (Imitrex) Allergies Allergy/AdvReac Type Severity Reaction Status Date / Time No Known Drug Allergies Allergy Verified 06/16/25 01:28 Exam Narrative Exam Narrative: Skin: Full-thickness ulceration down to and including fat and fascia located on the plantar aspect of the left hallux. The great toe is significantly swollen with erythema localized to the great toe. No purulence or fluctuance. Neuro: Absent protective and vibratory sensation Vascular: Pedal pulses are faintly palpable. Absent digital hair growth. No calf pain on squeeze Musculoskeletal: Range of motion of the hallux MPJ and IPJ is pain-free and there is no pain out of proportion. Compartments are soft. Constitutional Vital Signs, click to edit/add: Last Vital Signs Temp 97.5 F L 06/19/25 08:18 Pulse 69 06/19/25 08:18 Resp 18 06/19/25 08:18 BP 136/89 06/19/25 08:18 Pulse Ox 94 L 06/19/25 08:18 O2 Del Method Room Air 06/19/25 08:18 Results Labs Labs: [facility] 06/19/25 05:00 Sodium 141 Potassium 3.9 Chloride 103 Carbon Dioxide 30.7 BUN 10.0 Creatinine 0.88 Glucose 139 H Calcium 9.3 Assessment and Plan Assessment and Plan (1) DVT (deep venous thrombosis): Qualifiers: Affected thrombotic vein of extremity: unspecified vein of extremity Chronicity: unspecified DVT location: lower extremity Laterality: left Qualified Code(s): I82.402 - Acute embolism and thrombosis of unspecified deep veins of left lower extremity (2) Lumbar spondylosis: (3) Peripheral neuropathy: Qualifiers: Peripheral neuropathy type: polyneuropathy, other Qualified Code(s): G62.89 - Other specified polyneuropathies (4) Sleep apnea: Qualifiers: Sleep apnea type: unspecified type Qualified Code(s): G47.30 - Sleep apnea, unspecified (5) Narcolepsy: (6) Pre-diabetes: (7) Skin ulcer of left great toe with necrosis of bone: (8) Osteomyelitis of foot, left, acute: Plan Patient seen and evaluated at bedside. I had a long discussion with the patient regarding his recurrent left great toe ulcer which now appears to have bone infection. I discussed the potential risks and benefits of surgical versus nonsurgical treatment specifically local wound care versus bone debridement and possible amputation. Patient would like to undergo surgical intervention to clear deep space infection. Hold Eliquis until after surgery N.p.o. after midnight I discussed the case with Dr. Ernandez Surgery planned for tomorrow at noon
--- NOTE | 2025-06-19 13:28 | P.PN_ITS ---
Progress Note: Subjective Subjective Interval history: Pain and discomfort in the left leg. No chest pain or palpitation. No abdominal pain, nausea or vomiting. Exam Narrative Exam Narrative: General: The patient is lying in bed sleeping Shoulders: Muscle pain in his left trapezius. Pt states it was probably from slinging that sledge hammer. Cardiovascular: Regular Rate and Rhythm to auscultation without any murmurs. Respiratory: Clear to auscultation throughout. No wheezing. No rhonchi. No crackles. GI: Soft and nontender to palpation, with normal bowel sounds to auscultation. Lower extremities: Both lower extremities do not really have any gross edema in the legs to suggest ongoing (acute phase) deep vein thrombosis. Left FOOT: Left hallux is swollen and enlarged to 50% and very mildly erythematous and there is a wound which is circular with missing skin, that is a quarter size in diameter and about 5 mm deep. No gross purulence is draining, and no rosenda redness of cellulitis is spreading up the toe at this time. The left lateral ankle area, palpating over the hardware, is not warm or hot or painful. Constitutional Vital Signs, click to edit/add: Last Vital Signs Temp 97.5 F L 06/19/25 08:18 Pulse 69 06/19/25 08:18 Resp 18 06/19/25 08:18 BP 136/89 06/19/25 08:18 Pulse Ox 94 L 06/19/25 08:18 O2 Del Method Room Air 06/19/25 08:18 Progress Note: Objective Labs Labs: [facility] 06/19/25 05:00 Sodium 141 Potassium 3.9 Chloride 103 Carbon Dioxide 30.7 BUN 10.0 Creatinine 0.88 Glucose 139 H Calcium 9.3 Progress Note: A&P Assessment and Plan (1) DVT (deep venous thrombosis): Qualifiers: Affected thrombotic vein of extremity: unspecified vein of extremity Chronicity: unspecified DVT location: lower extremity Laterality: left Qualified Code(s): I82.402 - Acute embolism and thrombosis of unspecified deep veins of left lower extremity (2) Lumbar spondylosis: (3) Peripheral neuropathy: Qualifiers: Peripheral neuropathy type: polyneuropathy, other Qualified Code(s): G62.89 - Other specified polyneuropathies (4) Sleep apnea: Qualifiers: Sleep apnea type: unspecified type Qualified Code(s): G47.30 - Sleep apnea, unspecified (5) Narcolepsy: (6) Pre-diabetes: (7) Skin ulcer of left great toe with necrosis of bone: (8) Osteomyelitis of foot, left, acute: (9) Open wound of left great toe: Qualifiers: Encounter type: initial encounter Qualified Code(s): S91.102A - Unspecified open wound of left great toe without damage to nail, initial encounter Plan Infected foot ulcer. Previous MRSA infection. Repeat wound cultures positive for MRSA MRI confirms evidence of osteomyelitis Continue vancomycin and ceftazidime Arterial studies negative for significant stenosis. I discussed this case with Dr. Vallejo who is planning to proceed with the surgical intervention tomorrow. Diabetes. Questionable, borderline A1c is ranging between 5.5 and 6.3. Accu-Chek with sliding scale coverage. Reported history of DVT Continue Eliquis Hold Eliquis in preparation for surgery tomorrow Neuropathy Continue Neurontin Hypertension Continue meds Chronic, subacute medical conditions not listed above, abnormal labs and imaging. These would need to be addressed. Could be addressed later on or in the outpatient setting by PCP collaboration with other needed outpatient providers when time and condition are appropriate.
[2025-06-19 13:52] VITALS: BP 143/89; PULSE 68; TEMP 36.7; O2SAT 94
[2025-06-19 19:37] VITALS: BP 153/89; PULSE 68; TEMP 36.4; O2SAT 92
[2025-06-19] MEDS: ATORVASTATIN CALCIUM 10 MG TABLET PO (21:13)
[2025-06-19] MEDS: DEXTROSE 5%-0.9% NACL 1,000 ML 1,000 ML 75 ML IV (23:35)
[2025-06-20] MEDS: CEFTAZIDIME 1,000 MG in 0.9 % SODIUM CHLORIDE 50 ML 100 MG IV ×3 (01:34→18:21)
[2025-06-20 03:45] VITALS: BP 146/90; PULSE 66; TEMP 36.7; O2SAT 91
[2025-06-20 07:45] VITALS: BP 124/87; PULSE 75; TEMP 36.6; O2SAT 96
--- NOTE | 2025-06-20 07:47 | PM.PN ---
Progress Note: Subjective Subjective Interval history: Pain and discomfort in the left leg. No chest pain or palpitation. No abdominal pain, nausea or vomiting. Exam Narrative Exam Narrative: General: The patient is lying in bed sleeping Shoulders: Muscle pain in his left trapezius. Pt states it was probably from slinging that sledge hammer. Cardiovascular: Regular Rate and Rhythm to auscultation without any murmurs. Respiratory: Clear to auscultation throughout. No wheezing. No rhonchi. No crackles. GI: Soft and nontender to palpation, with normal bowel sounds to auscultation. Lower extremities: Both lower extremities do not really have any gross edema in the legs to suggest ongoing (acute phase) deep vein thrombosis. Left FOOT: Left hallux is swollen and enlarged to 50% and very mildly erythematous and there is a wound which is circular with missing skin, that is a quarter size in diameter and about 5 mm deep. No gross purulence is draining, and no rosenda redness of cellulitis is spreading up the toe at this time. The left lateral ankle area, palpating over the hardware, is not warm or hot or painful. Constitutional Vital Signs, click to edit/add: Last Vital Signs Temp 97.9 F 06/20/25 07:45 Pulse 75 06/20/25 07:45 Resp 18 06/20/25 07:45 BP 124/87 06/20/25 07:45 Pulse Ox 96 06/20/25 07:45 O2 Del Method Room Air 06/20/25 07:45 Progress Note: A&P Assessment and Plan (1) DVT (deep venous thrombosis): Qualifiers: Affected thrombotic vein of extremity: unspecified vein of extremity Chronicity: unspecified DVT location: lower extremity Laterality: left Qualified Code(s): I82.402 - Acute embolism and thrombosis of unspecified deep veins of left lower extremity (2) Lumbar spondylosis: (3) Peripheral neuropathy: Qualifiers: Peripheral neuropathy type: polyneuropathy, other Qualified Code(s): G62.89 - Other specified polyneuropathies (4) Sleep apnea: Qualifiers: Sleep apnea type: unspecified type Qualified Code(s): G47.30 - Sleep apnea, unspecified (5) Narcolepsy: (6) Pre-diabetes: (7) Skin ulcer of left great toe with necrosis of bone: (8) Osteomyelitis of foot, left, acute: (9) Open wound of left great toe: Qualifiers: Encounter type: initial encounter Qualified Code(s): S91.102A - Unspecified open wound of left great toe without damage to nail, initial encounter Plan Infected foot ulcer. MRSA foot cellulitis. MRI confirms evidence of osteomyelitis likely MRSA. Continue vancomycin and ceftazidime Arterial studies negative for significant stenosis. I discussed this case with Dr. Vallejo who is planning to proceed with the surgical intervention today. Diabetes. Questionable, borderline A1c is ranging between 5.5 and 6.3. Accu-Chek with sliding scale coverage. Reported history of DVT Continue Eliquis Hold Eliquis in preparation for surgery today Neuropathy Continue Neurontin Hypertension Continue meds Chronic, subacute medical conditions not listed above, abnormal labs and imaging. These would need to be addressed. Could be addressed later on or in the outpatient setting by PCP collaboration with other needed outpatient providers when time and condition are appropriate.
[2025-06-20] MEDS: AMANTADINE HCL 100 MG CAPSULE PO ×2 (08:11→21:47)
[2025-06-20] MEDS: DOXAZOSIN MESYLATE 2 MG TABLET 4 MG PO (08:11)
[2025-06-20] MEDS: POTASSIUM CHLORIDE 10 MEQ ER TABLET PO ×2 (08:11→21:47)
[2025-06-20] MEDS: CARVEDILOL 25 MG TABLET PO ×2 (08:11→21:47)
[2025-06-20] MEDS: MODAFINIL 100 MG TABLET 200 MG PO ×2 (08:11→21:47)
[2025-06-20] MEDS: VANCOMYCIN HCL 1,750 MG in 0.9 % SODIUM CHLORIDE 500 ML 250 MG IV ×2 (08:11→20:46)
[2025-06-20] MEDS: MULTIVITAMIN TABLET 1 TAB PO (08:11)
[2025-06-20] MEDS: CITALOPRAM HYDROBROMIDE 20 MG TABLET 40 MG PO (08:12)
[2025-06-20] MEDS: FUROSEMIDE 20 MG TABLET PO (08:12)
[2025-06-20] MEDS: GABAPENTIN 300 MG CAPSULE 600 MG PO (08:12)
--- NOTE | 2025-06-20 09:30 | CM.NOTE ---
Dr. Ernandez given final aeorbic culture result by Jamar Vick.
--- NOTE | 2025-06-20 09:36 | SWNOTE1 ---
RADHA received a message from case management and final culture results have been sent by Ramandeep at [facility]. RADHA took final culture results to Dr. Ernandez.
--- NOTE | 2025-06-20 12:26 | PM.ORONB ---
Brief Operative Note Date of procedure: 06/20/25 Pre-op diagnosis general: Left hallux ulceration with osteomyelitis Post-op diagnosis: same as pre-op Procedure: Procedure performed: Left hallux amputation Indications for procedure: See consultation note for details but in short patient was admitted through the emergency department on 06/16/25 and workup revealed osteomyelitis of the proximal phalanx of the left great toe. In the preoperative area I discussed with the patient all potential risks and benefits of surgical intervention with hallux amputation versus conservative care. Patient wished to undergo amputation and the above procedure. Intraoperative findings: Full-thickness ulceration with fibrogranular bed on the plantar aspect of the left great toe. No abscess or purulent drainage. Bone quality of the first metatarsal was within normal limits. Procedure in detail: Patient was identified in preop holding by myself which time correct side and site were marked and consent was reviewed/obtained. Patient brought back in the operating theater placed in table supine position and IV sedation was administered. No additional antibiotics were given as he is receiving broad-spectrum antibiotics on the floor. Left foot was prepped and draped in usual sterile fashion and formal timeout was performed. Local anesthesia consisting of 10 cc of 1% lidocaine plain and 10 cc of 0.5% Marcaine plain were used and administered as a standard digital block. A plantar based racquet shaped incision was placed over the base of the left great toe allowing the ulceration to be completely excised. Care was taken to preserve as much healthy skin as possible while also excising the toenail. Then further dissection allowed the great toe to be disarticulated at the metatarsal phalangeal joint. The amputated toe was passed the back table to be sent as specimen. Surgical site was irrigated with copious muscle sterile saline. Then a clean rongeur was used to obtain a specimen from the first metatarsal to ensure all infected and compromised bone had been excised. The preserved skin flap was refashioned sharply trimming away redundant skin to allow closure without tension. Skin was then closed in a single layer with nonabsorbable suture. A dry sterile dressing and surgical shoe were then applied. Patient tolerated the procedure and anesthesia well was transferred to the recovery room with vital signs stable and brisk capillary refill to the toes. Postoperative plan: Discharge planning per the hospitalist; patient may be discharged home on 2 weeks of oral antibiotics Patient may partial weight-bear to the left heel with the surgical shoe Keep surgical dressing clean dry and intact until follow-up at the wound center next week Implants: None Anesthesia: MAC and local Surgeon: Trey Vallejo Fashion Consultant Selling: Harika Curtis Estimated blood loss (mL): 25 Pathology: other (hallux amputation; 1st metatarsal bone ) Condition: stable Disposition: PACU
--- NOTE | 2025-06-20 12:37 | XR_ITS ---
[address] [address] Patient Name: MATTY WADE MRN: [id number] date: 1970 Sex: M Assigned Patient Location: MS Current Patient Location: [place] Accession/Order Number: [id number] Exam Date: 06/20/2025 14:16 Report Date: 06/20/2025 22:20 At the request of: CLARISA BOJORQUEZ DPM Procedure: XR foot LT min 3V Left FOOT - 3 views CLINICAL HISTORY: osteomyelitis left hallux s/p amputation COMPARISON: MRI 06/18/2025 FINDINGS: Postsurgical changes status post amputation of the first digit. There is soft tissue swelling identified at the operative site which could be reactive due to recent surgery. Remaining osseous structures are otherwise unremarkable. Postsurgical changes distal tibia/fibula. XR/XR foot LT min 3V IMPRESSION: Interval amputation of the first digit.. Soft tissue swelling identified at the operative site consistent with surgery.. Impression dictated by: Venkat Rodas M.D. 06/20/2025 10:20 PM Dictation Location: [place] [address] Electronically authenticated by: [id number] Y Date: 06/20/2025 22:20
[2025-06-20] MEDS: LIDOCAINE HCL 1% 100 MG/10 ML MDV INJ (12:48)
[2025-06-20] MEDS: BUPIVACAINE HCL 0.5% PF 50 MG/10 ML VIAL INJ (12:48)
[2025-06-20 13:30] VITALS: BP 152/105; PULSE 66; TEMP 36.7; O2SAT 90
[2025-06-20] MEDS: DICLOFENAC SODIUM 1% 100 GM TUBE TOPICAL ×2 (18:20→21:47)
[2025-06-20] MEDS: 0.9 % SODIUM CHLORIDE 250 ML 10 ML IV (18:21)
[2025-06-20 18:35] VITALS: BP 139/86; PULSE 68; TEMP 36.4; O2SAT 92
[2025-06-20 19:34] VITALS: BP 130/68; PULSE 71; TEMP 36.6; O2SAT 91
[2025-06-20] MEDS: ATORVASTATIN CALCIUM 10 MG TABLET PO (21:47)
[2025-06-20] MEDS: [UNRECOGNIZED DRUG - OTHER] 4.5 EACH PO (21:50)
[2025-06-21] MEDS: CEFTAZIDIME 1,000 MG in 0.9 % SODIUM CHLORIDE 50 ML 100 MG IV (03:08)
[2025-06-21] MEDS: HYDROMORPHONE HCL 0.5 MG/0.5 ML SYRINGE 0.25 MG IV (03:24)
[2025-06-21 05:22] LABS: Hematocrit 46.7 % (42.0-54.0); Hemoglobin 14.6 g/dL (14.0-18.0); Mean Corpuscular HGB Conc 31.3 g/dL (29.9-35.2); Mean Corpuscular Hemoglobin 27.6 pg (25.9-34.0); Mean Corpuscular Volume 88.3 fL (80.0-94.0); Platelet Count 203 10^3/uL (150-450); Red Blood Count 5.29 10^6/uL (4.70-6.10); White Blood Count 7.8 10^3/uL (4.0-11.0)
[2025-06-21 05:33] LABS: Anion Gap 11.4; Blood Urea Nitrogen 15.0 mg/dL (7.0-18.0); Calcium 9.1 mg/dL (8.5-10.1); Carbon Dioxide 29.5 mmol/L (21.0-32.0); Chloride 103 mmol/L (98-107); Estimated GFR (African America >60 (>=60 mL/min/1.73m^2); Estimated GFR (Non-African Ame >60 (>=60 mL/min/1.73m^2); Glucose 105 mg/dL (74-106); Potassium 3.9 mmol/L (3.5-5.1); Sodium 140 mmol/L (136-145)
[2025-06-21] MEDS: PANTOPRAZOLE SODIUM 40 MG TABLET.DR PO (05:54)
[2025-06-21] MEDS: DICLOFENAC SODIUM 1% 100 GM TUBE TOPICAL (05:54)
--- NOTE | 2025-06-21 07:24 | PM.DS1 ---
DS: Providers Provider Date of admission: 06/16/25 03:15 Primary care physician: Caden Mendez MD Consults: 06/16/25 Consult to Pharmaceutical Salesperson Routine Reason for consult:: Transportation 06/17/25 10:04 Consult to Podiatry Routine Consulting Provider: Trey Vallejo Reason for consultation: left great toe open wound Has provider been notified: No DS: Diagnosis Discharge Diagnosis (1) DVT (deep venous thrombosis): Qualifiers: Affected thrombotic vein of extremity: unspecified vein of extremity Chronicity: unspecified DVT location: lower extremity Laterality: left Qualified Code(s): I82.402 - Acute embolism and thrombosis of unspecified deep veins of left lower extremity (2) Lumbar spondylosis: (3) Peripheral neuropathy: Qualifiers: Peripheral neuropathy type: polyneuropathy, other Qualified Code(s): G62.89 - Other specified polyneuropathies (4) Sleep apnea: Qualifiers: Sleep apnea type: unspecified type Qualified Code(s): G47.30 - Sleep apnea, unspecified (5) Narcolepsy: (6) Pre-diabetes: (7) Skin ulcer of left great toe with necrosis of bone: (8) Osteomyelitis of foot, left, acute: (9) Open wound of left great toe: Qualifiers: Encounter type: initial encounter Qualified Code(s): S91.102A - Unspecified open wound of left great toe without damage to nail, initial encounter Plan As listed above, below and others that are not listed DS: Summary Hospital Course Hospital Course: Mr. Garces is a 54-year-old gentleman who came in with pain and discomfort in the left foot and was diagnosed having cellulitis and MRSA osteomyelitis of the left foot. Infected foot ulcer. MRSA foot cellulitis. MRI confirms evidence of osteomyelitis likely MRSA. Continue vancomycin and ceftazidime. This will be changed to oral clindamycin. MRSA is sensitive to clinda. Patient is on multiple medications that could potentially interact with linezolid. Arterial studies negative for significant stenosis. Status post amputation. Please refer to procedure note for details. Cleared for discharge by telecommunications officer. Patient is to follow-up with the wound clinic. Partial weight bearing with surgical shoe. Diabetes. Questionable, borderline A1c is ranging between 5.5 and 6.3. Accu-Chek with sliding scale coverage. 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 Reported history of DVT Continue Eliquis Neuropathy Continue Neurontin Hypertension Continue meds Chronic, subacute medical conditions not listed above, abnormal labs and imaging. These would need to be addressed. Could be addressed later on or in the outpatient setting by PCP collaboration with other needed outpatient providers when time and condition are appropriate. Patient has multiple complex medical issues as listed above and others that are not listed. All appear to be stable. I do not have any clear or strong clinical justification to extend inpatient hospitalization. Patient however will require close and frequent monitoring as well as additional work-up, investigation and therapeutic intervention that could take place from this point on post discharge. That is to prevent relapse, decompensation, rehospitalization and other medical implications.. I instructed patient to ask her primary care doctor to obtain [facility] record entirely to address abnormalities seen on labs and imaging that I have and have not addressed during this hospitalization, follow-up on pending blood work, imaging and pathology is if available and to follow-up on needed medical care in the outpatient setting. Time Spent with Patient Time attestation: Total time spent providing and/or coordinating discharge services: Exam Constitutional Vital Signs, click to edit/add: Last Vital Signs Temp 97.9 F 06/20/25 19:34 Pulse 71 06/20/25 19:34 Resp 18 06/20/25 19:39 BP 130/68 06/20/25 19:34 Pulse Ox 91 L 06/20/25 19:34 O2 Del Method Room Air 06/20/25 19:34 DS: Data Data Completed and Pending Labs on day of discharge: Labs from last 24 hours 06/21/25 04:59 WBC 7.8 RBC 5.29 Hgb 14.6 Hct 46.7 MCV 88.3 MCH 27.6 MCHC 31.3 RDW 13.4 Plt Count 203 MPV 9.7 Sodium 140 Potassium 3.9 Chloride 103 Carbon Dioxide 29.5 Anion Gap 11.4 BUN 15.0 Creatinine 0.83 Est GFR ( Amer) >60 Est GFR (Non-Af Amer) >60 BUN/Creatinine Ratio 18.1 Glucose 105 Calcium 9.1 Preliminary micro results at discharge 06/16/25 02:01 Blood Culture Result 2 - Preliminary Blood - Left Antecubital NO GROWTH AT 36-48 HOURS. FINAL TO FOLLOW. 06/16/25 02:00 Blood Culture Result 1 - Preliminary Blood - Right Antecubital NO GROWTH AT 36-48 HOURS. FINAL TO FOLLOW. Discharge Plan Discharge Disposition: Home, Self-Care Condition: Fair Discharge Medications: New clindamycin HCl 300 mg capsule 300 mg PO TID 14 Days Qty: 42 0RF Continued potassium chloride 10 mEq tablet extended release 10 meq PO Q12H modafinil 200 mg tablet 200 mg PO BID Patient Comments: am and noon gabapentin 600 mg tablet 600 mg PO DAILY carvedilol 25 mg tablet 25 mg PO BID Rx Instructions: must administer with a meal/food simvastatin 20 mg tablet 20 mg PO .qhs pantoprazole 40 mg tablet,delayed release (DR/EC) 40 mg PO DAILY furosemide 20 mg tablet 20 mg PO DAILY cholecalciferol (vitamin D3) 125 mcg (5,000 unit) capsule 6,000 unit PO DAILY Patient Comments: takes at noon multivitamin [Daily Multi-Vitamin] Tablet 1 tab PO DAILY amantadine HCl 100 mg tablet 100 mg PO BID biotin 10 mg tablet 10 mg PO DAILY citalopram 40 mg tablet 40 mg PO DAILY testosterone cypionate 200 mg/mL oil 300 mg IM Q14D sildenafil 25 mg tablet 25 mg PO Q24H Xywav 0.5 gram/mL solution 4.5 g PO HS sumatriptan succinate [Imitrex] 100 mg tablet 100 mg PO Q2H PRN (Reason: migraine headache) Rx Instructions: do not exceed 2 doses per 24 hrs meclizine 25 mg tablet 25 mg PO DAILY PRN (Reason: dizziness) aspirin [Adult Low Dose Aspirin] 81 mg tablet,delayed release (DR/EC) 81 mg PO DAILY Changed doxazosin 8 mg tablet 4 mg PO DAILY Qty: 0 0RF Eliquis 5 mg Tablet 5 mg PO BID MDD 2 po BID for 6 days then 1 po Qty: 60 11RF Discontinued glycopyrrolate 1 mg tablet 1 mg PO BID ondansetron HCl 4 mg tablet 8 mg PO Q8H PRN (Reason: nausea and vomiting) Print Language: Chadian Activity Restrictions/Additional Instructions: I may not have addressed or treated all of your medical illnesses or the abnormal blood work or imaging studies during this hospitalization. Please ask your primary care provider to obtain [facility] records entirely to follow up on all of the abnormal physical, laboratory, and imaging findings that I have not addressed. Please return back to the emergency room or seek medical attention if your symptoms worsen or return. Follow-up with the wound clinic next week Partial weightbearing to the left heel with surgical shoe. Discharging you from [facility] does not mean that your medical care ends here and now. You may still need additional monitoring, work up, investigation, and treatment plan to be handled from this point on by out patient providers including your primary care provider and specialists. For any medication question, please contact your retail pharmacist or your primary care provider. Thank you. Forms: Portal Instructions Referrals: Caden Mendez MD [Primary Care Provider, Family Practice] Trey Vallejo DPM [Physician, Podiatry]
[2025-06-21 07:46] VITALS: BP 136/58; PULSE 70; TEMP 37.2; O2SAT 90
--- NOTE | 2025-06-21 07:50 | CM.NOTE ---
Rounds made with Dr. Ernandez, pt will discharge to home today on oral antibiotics. Dr. Ernandez discussed with pt culture results and discharge planning. Pt will f/u with Dr. Vallejo and PCP.
[2025-06-21] MEDS: AMANTADINE HCL 100 MG CAPSULE PO (08:09)
[2025-06-21] MEDS: VANCOMYCIN HCL 1,750 MG in 0.9 % SODIUM CHLORIDE 500 ML 250 MG IV (08:09)
[2025-06-21] MEDS: CARVEDILOL 25 MG TABLET PO (08:09)
[2025-06-21] MEDS: GABAPENTIN 300 MG CAPSULE 600 MG PO (08:10)
[2025-06-21] MEDS: DOXAZOSIN MESYLATE 2 MG TABLET 4 MG PO (08:10)
[2025-06-21] MEDS: FUROSEMIDE 20 MG TABLET PO (08:10)
[2025-06-21] MEDS: CITALOPRAM HYDROBROMIDE 20 MG TABLET 40 MG PO (08:10)
[2025-06-21] MEDS: MODAFINIL 100 MG TABLET 200 MG PO (08:11)
[2025-06-21] MEDS: POTASSIUM CHLORIDE 10 MEQ ER TABLET PO (08:12)
[2025-06-21] MEDS: MULTIVITAMIN TABLET 1 TAB PO (08:12)
--- NOTE | 2025-06-22 12:31 | CM.DCFOLLOWU ---
Person spoke with:Alden How are you feeling? Better How is your pain? It's minimal Did you understand your discharge instructions? Yes Do you have any questions about your discharge instructions? No Were you given any prescriptions at discharge? Yes Were you able to get your prescriptions filled? Yes Do you understand how to take your medications as ordered? Yes Do you have any questions about your follow up appointment and do you plan to keep your follow up appointment? No questions. Yes I plan on keeping my appts. Is there anything else that you would like to discuss? No Questions/Comments/Concerns/Other:Pt was instructed to leave dressing intact until follow up appt with the wound clinic
== END 2025-06-21 11:05 | disposition home or self-care (01) | DRG 314 ==
LOC: ER 02:15 → MS 03:16
PROVIDERS: Hospitalist; Podiatrist Foot & Ankle Surgery; Admitting Provider Internal Medicine; Emergency Provider Emergency Medicine; PCP Family Medicine; Visit Provider Internal Medicine
PROC: 0Y6Q0Z0 Detachment at Left 1st Toe, Complete, Open Approach (ICD-10-PCS; principal; 2025-06-20 12:00)
DX: E11.69 Type 2 diabetes mellitus with other specified complication (principal); M86.172 Other acute osteomyelitis, left ankle and foot; S91.102A Unspecified open wound of left great toe without damage to nail, initial encounter; X58.XXXA Exposure to other specified factors, initial encounter; Y93.H2 Activity, gardening and landscaping; M47.816 Spondylosis without myelopathy or radiculopathy, lumbar region; Z98.1 Arthrodesis status; G47.419 Narcolepsy without cataplexy; Z79.01 Long term (current) use of anticoagulants; G47.33 Obstructive sleep apnea (adult) (pediatric); L03.116 Cellulitis of left lower limb; Z86.718 Personal history of other venous thrombosis and embolism; Z86.14 Personal history of Methicillin resistant Staphylococcus aureus infection; I10 Essential (primary) hypertension; E11.42 Type 2 diabetes mellitus with diabetic polyneuropathy; F32.A Depression, unspecified; F43.10 Post-traumatic stress disorder, unspecified; K21.9 Gastro-esophageal reflux disease without esophagitis; F41.9 Anxiety disorder, unspecified; Z79.82 Long term (current) use of aspirin; Z79.899 Other long term (current) drug therapy; E11.621 Type 2 diabetes mellitus with foot ulcer; L97.524 Non-pressure chronic ulcer of other part of left foot with necrosis of bone; B95.62 Methicillin resistant Staphylococcus aureus infection as the cause of diseases classified elsewhere; E66.01 Morbid (severe) obesity due to excess calories; Z68.39 Body mass index [BMI] 39.0-39.9, adult; E11.319 Type 2 diabetes mellitus with unspecified diabetic retinopathy without macular edema
CPT/HCPCS: 36415; 70030; 73630; 73718; 80048; 80202; 82948; 83036; 83605; 85025; 85027; 85652; 86140; 87040; 87070; 87075; 87077; 87102; 87116; 87186; 87205; 87206; 93925; 96365; 99285; 99999; J0665; J0713; J1171; J2250; J2543; J2704; J3010; J3373

== ENCOUNTER 2025-06-27 13:23 | Outpatient (OUT) | payer MEDICAID, SELFPAY ==
--- OUTSIDE RECORDS SUMMARY | 2025-06-27 13:25 | XMS_ITS | Clinical Summary ---
Author Organization [facility] Address [address] [place] [address] Care Team Providers Care Journalism Internship Name Role Phone Caden Mendez MD Primary Care Provider [phone] Christiano Geiger MD Unavailable [phone] Trey Vallejo DPM Unavailable [phone] Allergies No known active allergies Medications gabapentin [...] = 0.6 oz pur e alcohol) monthly [facility] Utilities Answer Date Recorded In the past 12 months has [employer], [employer], or water [employer] threatened to shut off services in your [...] any time in the past 12 [facility], were you homeless or living in a assisted (including now)? No 10/08/2024 Hunger Vital Sign [...] of 2) 2019 COVID-19 Vaccine (4 - 2024- season) 2025 08/18/2021, 12/24/2020, 12/02/2020 Influenza Vaccine (#1) 2025 [...] this topic Medical Devices Implanted Type Area Stock Dealer Device Identifier Shelf Expiration Date Model / Serial / Lot Tibial Nail Implanted:Qty: 1 on 09/24/2024 by Sandrine Field MD at [facility] Nail Right: [employer] 01/10/2034 04.043.145 S / / [id number] Screw Implanted:Qty: 1 on 09/24/2024 by Sandrine Field MD at [facility] Screw Right: [employer] [id number] 05/13/2034 04.045.042 S / / [id number] Screw Implanted:Qty: 1 on 09/24/2024 by Sandrine Field MD at [facility] Screw Right: [employer] [id number] 03/12/2034 04.045.044 S / / [id number] Screw Implanted:Qty: 1 on 09/24/2024 by Sandrine Field MD at [facility] Screw Right: [employer] [id number] 09/12/2033 04.045.046 S / / [id number] Screw Implanted:Qty: 1 on 09/24/2024 by Sandrine Field MD at [facility] Screw Right: [employer] [id number] 05/13/2034 04.045.034 S / / [id number] [place] [id number] [facility] MEDICAID Advance Directives * Full Code (Latest Code Status on File) Date Activated Date Inactivated Comments 10/08/2024 7:17 AM 10/11/2024 4:47 PM * Full Code Date Activated Date Inactivated Comments 09/23/2024 1:50 PM 09/28/2024 8:43 PM Care Teams Journalism Internship Relationship Specialty Start Date End Date Caden Mendez MD [address] [facility] [place] [address] PCP - General 09/23/24 Christiano Geiger MD [address] [place] [id number] 10/11/24 Trey Vallejo DPM Address: [address] [place] [address] [place] [address] Podiatry 10/11/24
--- OUTSIDE RECORDS SUMMARY | 2025-06-27 13:26 | XMS_ITS | Encounter Summary ---
Author Organization [facility] Address [address] [place] [address] Care Team Providers Care Reservoir Engineer Name Role Phone Caden Mendez MD Primary Care Provider [phone] Encounter Details Date Type Department Care Team (Late st Contact Info) Description 03/24/2023 Abstract [facility] [address] [place] [phone] Christiano Geiger MD [address] [facility] [address] [place] [id number] Social History Tobacco Use Types Packs/Day Years [...] as of this encounter Plan of Treatment Not on file documented as of this encounter Visit Diagnoses Not on filedocumented in this encounter Care Teams Reservoir Engineer Relationship Specialty Start Date End Date Caden Mendez MD PCP - General Family Medicine 01/10/24 documented as of this encounter
--- OUTSIDE RECORDS SUMMARY | 2025-06-27 13:26 | XMS_ITS | Patient Health Record ---
Author Organization [facility] in [place] Address [address] [place] [address] Care Team Providers Care Out Of Town Collection Clerk Name Role Phone Kareem Mendez Primary Care Provider [phone] Clarisa Vallejo [phone] Allergies Allergen (clinical drug ingredient) Drug/Non Drug Allergy documented on EMR Reaction Allergy Type Onset Date Status hydrocodone Hydrocodone hives Drug Allergy Act silverio fentanyl Fentanyl hives Drug Allergy Active Results Component Value Reference Range Notes CBC AUTO DIFF Reviewed date:07/07/2024 12:32:15 PM Interpretation: Performing Lab: Notes/Report: [facility] , White Blood Count 9.1 4.0-11.0 [...] Performing Lab: see note ML - [facility] FREE T3 Reviewed date:07/07/2024 12:32:15 PM Interpretation: Performing Lab: Notes/Report: [facility] , Free T3 2.65 2.18-3.98 pg/mL Performing Lab: see note ML - [facility] PROF 14(COMP METB) Reviewed date:07/07/2024 12:32:15 PM Interpretation: Performing Lab: Notes/Report: [facility] , Sodium 139 136-145 mmol/L Potassium [...] 0.8 Performing Lab: see note ML - [facility] LB T4 Reviewed date:07/07/2024 12:32:15 PM Interpretation: Performing Lab: Notes/Report: [facility] , T4 Thyroxine 6.20 4.50-12.10 ug/dL Performing Lab: see note ML - [facility] LB TSH Reviewed date:07/07/2024 12:32:15 PM Interpretation: Performing Lab: Notes/Report: [facility] , Thyroid Stimulating Hormone 0.944 0.35 8-3.740 uIU/mL Performing Lab: see note ML - [facility] LB LIPID PROFILE Reviewed date:08/05/2024 10:32:26 AM Interpretation: Performing Lab: Notes/Report: [facility] , Triglycerides 123 <=150 mg/dL Cholesterol [...] RISK Performing Lab: see note ML - [facility] LB PROF 14(COMP METB) Reviewed date:08/05/2024 10:32:26 AM Interpretation: Performing Lab: Notes/Report: [facility] , Sodium 141 136-145 mmol/L Potassium [...] 0.8 Performing Lab: see note ML - [facility] LB PSA SCREENING Reviewed date:08/05/2024 10:32:26 AM Interpretation: Performing Lab: Notes/Report: [facility] , Prostate Specific Antigen Scrn 2.37 <=4.00 ng/mL Performing Lab: see note ML - [facility] LB CBC AUTO DIFF Reviewed date:08/29/2024 12:27:30 PM Interpretation: Performing Lab: Notes/Report: [facility] , White Blood Count 9.1 4.0-11.0 [...] Performing Lab: see note ML - [facility] LB CRP Reviewed date:08/29/2024 12:27:30 PM Interpretation: Performing Lab: Notes/Report: [facility] , C Reactive Protein 0.54 <=0.50 mg/dL Performing Lab: see note - [facility] PROF CHEM 8 (BAS METB) Reviewed date:08/29/2024 12:27:30 PM Interpretation: Performing Lab: Notes/Report: [facility] , Sodium 137 136-145 mmol/L Potassium [...] 8.5-10.1 mg/dL Performing Lab: see note - [facility] LB Erythrocyte Sedimentation Ra te Reviewed date:08/29/2024 12:27:30 PM Interpretation: Performing Lab: Notes/Report: [facility] , Erythrocyte Sedimentation Rate 51 <=20 mm/hr Performing Lab: see note - [facility] US venous doppler LE BI Reviewed date:09/19/2024 07:12:29 PM Interpretation: Performing Lab: Notes/Report: Source Facility: [facility] [place] [address] [place] [address] Ultrasound Report Signed Patient: MATTY GARCES MR#: [id number] : 1970 Acct:[id number] Age/Sex: 53 / M ADM Date: 08/30/24 Loc: WC Attending Dr: Harriett Gooden Ordering Physician: Harriett Gooden Date of Service: 08/30/24 Procedure(s): US venous doppler LE LT Accession Number(s): [id number] cc: Venus Mendez M.D.; Harriett Gooden [place] [id number] Patient Name: MATTY GARCES MRN: [id number] date: 1970 Sex: M Assigned Patient Location: Current Patient Location: Accession/Order Number: [id number] Exam Date: 08/30/2024 15:36 Report Date: 08/30/2024 [...] Signed By: 08/30/24 1633 DD/ 1631 TD/TT: Stick Puller: CBC AUTO DIFF Reviewed date:09/19/2024 07:12:29 PM Interpretation: Performing Lab: Notes/Report: [facility] , White Blood Count 7.6 4.0-11.0 [...] Performing Lab: see note ML - [facility] LB CRP Reviewed date:09/20/2024 07:18:09 PM Interpretation: Performing Lab: Notes/Report: [facility] , C Reactive Protein 2.51 <=0.50 mg/dL Performing Lab: see note ML - [facility] LB LACTATE or LACTIC ACID Reviewed date:09/20/2024 07:18:09 PM Interpretation: Performing Lab: Notes/Report: [facility] , Lactate/Lactic Acid 1.4 0.4-2.0 mmol/L Performing Lab: see note ML - [facility] LB PROF 14(COMP METB) Reviewed date:09/20/2024 07:18:09 PM Interpretation: Performing Lab: Notes/Report: [facility] , Sodium 138 136-145 mmol/L Potassium [...] 0.8 Performing Lab: see note ML - [facility] LB Blood Culture 2 Reviewed date:09/25/2024 08:20:56 PM Interpretation: Performing Lab: Notes/Report: [facility] , Blood Culture 2 See Below For Report Blood Culture 2 NG5D NO GROWTH AT 5 DAYS. Performing Lab: see note ML - [facility] LB Erythrocyte Sedimentation Ra te Reviewed date:09/19/2024 07:12:29 PM Interpretation: Performing Lab: Notes/Report: [facility] , Erythrocyte Sedimentation Rate 51 <=20 mm/hr Performing Lab: see note ML - [facility] LB Manual Differential Reviewed date:09/19/2024 07:12:29 PM Interpretation: Performing Lab: Notes/Report: [facility] , Segmented Neutrophils % Manual 77.0 43.0-75.0 Lymphocytes Percent Manual 6.0 20.5-60.0 % Monocytes Percent Manual 4.0 1.7-12.0 % Eosinophils Percent Manual 3.0 0.9-7.0 % Basophils Percent Manual 1.0 0.2-2.0 % Atypical Lymphocytes % Manual 9.0 Segmented Neut Absolute Manual 5.85 1.4-6.5 10 3/uL Lymphocytes Absolute Manual 0.45 1.20 -3.80 10 3/uL Monocytes Absolute Manual 0.30 0.30-0 .80 10 3/uL Eosinophils Absolute Manual 0.22 0.00 -0.70 10 3/uL Basophils Abs Manual 0.07 0.00-0.10 1 0 3/uL Atypical Lymphocytes Abs Man 0.68 Performing Lab: see note - [facility] LB US venous doppler LE BI Reviewed date:09/20/2024 07:18:09 PM Interpretation: Performing Lab: Notes/Report: Source Facility: [place] [address] Ultrasound Report Signed Patient: MATTY GARCES MR#: [id number] : 1970 Acct:[id number] Age/Sex: 53 / M ADM Date: 09/19/24 Loc: ER Attending Dr: Ordering Physician: Dwight Garrett Date of Service: 09/19/24 Procedure(s): US venous doppler LE LT Accession Number(s): [id number] cc: Venus Mendez M.D.; Dwight Garrett [place] [phone] Patient Name: MATTY GARCES MRN: [id number] date: 1970 Sex: M Assigned Patient Location: ER Current Patient Location: ER Accession/Order Number: [id number] Exam Date: 09/19/2024 19:20 Report Date: 09/19/2024 [...] M.D. Signed By: 09/19/242049 DD/ 46 TD/TT: Stick Puller: BNP Reviewed date:09/20/2024 07:18:09 PM Interpretation: Performing Lab: Notes/Report: [facility] , NT Pro B Type Natriuretic Pept 185.0 <=900.0 pg/mL Performing Lab: see note ML - [facility] LB CBC AUTO DIFF Reviewed date:09/20/2024 07:18:09 PM Interpretation: Performing Lab: Notes/Report: [facility] , White Blood Count 6.6 4.0-11.0 [...] 3/uL Performing Lab: see note ML - [facility] LB PROF 14(COMP METB) Reviewed date:09/20/2024 07:18:09 PM Interpretation: Performing Lab: Notes/Report: [facility] , Sodium 142 136-145 mmol/L Potassium [...] Performing Lab: see note ML - [facility] LB CT angio chest Reviewed date:09/20/2024 07:18:09 PM Interpretation: Performing Lab: Notes/Report: Source Facility: [facility] [place] [address] [place] [address] CT Scan Report Signed Patient: MATTY GARCES MR#: [id number] : 1970 Acct:[id number] Age/Sex: 53 / M ADM Date: 09/19/24 Loc: ICU 270-[address]: Venus Mendez M.D. Ordering Physician: Venus Mendez M.D. Date of Service: 09/20/24 Procedure(s): CT angio chest Accession Number(s): [id number] cc: Venus Mendez M.D. [place] [phone] Patient Name: MATTY GARCES MRN: [facility]:[id number] date: 1970 Sex: M Assigned Patient Location: ICU Current Patient Location: ICU Accession/Order Number: [id number] Exam Date: 09/20/2024 13:15 Report Date: 09/20/2024 [...] Signed By: 09/20/24 1418 DD/ 1415 TD/TT: Stick Puller: Troponin I High Sensitivity Reviewed date:09/20/2024 07:18:09 PM Interpretation: Performing Lab: Notes/Report: [facility] , Troponin I High Sensitivity 7.2 4.0-76.1 pg/m L CUT-OFF POINTS HAVE BEEN ESTABLISHED BASED ON THE FOURTH UNIVERSAL DEFINITION OF MYOCARDIAL INFARCTION. THE UPPER REFERENCE LIMIT (URL) OF TROPONIN, DEFINED THE 99TH PERCENTILE OF cTnI DISTRIBUTION IN A REFERENCE POPULATION, HAS BEEN CONFIRMED THE DECISION THRESHOLD FOR NE DIAGNOSIS. 99TH PERCENTILE = 76.2 PG/ML NOTE: HIGH-SENSITIVITY TROPONIN ASSAY IS NOT INTENDED TO BE USED IN ISOLATION BUT SHOULD BE INTERPRETED IN CONJUNCTION WITH OTHER DIAGNOSTIC AND CLINICAL INFORMATION. Performing Lab: see note ML - [facility] LB XR foot LT min 3V Reviewed date:09/21/2024 09:07:03 PM Interpretation: Performing Lab: Notes/Report: Source Facility: [facility] [place] [address] [place] [address] XRay Report Signed Patient: MATTY GARCES MR#: [id number] : 1970 Acct:[id number] Age/Sex: 53 / M ADM Date: 09/19/24 Loc: ICU 270-[address]: Venus Mendez M.D. Ordering Physician: Clarisa Vallejo D.P.M. Date of Service: 09/20/24 Procedure(s): XR foot LT min 3V Accession Number(s): [id number] cc: Clarisa Vallejo D.P.M.; Venus Mendez M.D. The [place] [address] Patient Name: MATTY GARCES MRN: [id number] date: 1970 Sex: M Assigned Patient Location: ICU Current Patient Location: ICU Accession/Order Number: [id number] Exam Date: 09/20/2024 20:45 Report Date: 09/20/2024 [...] M.D. Signed By: 09/20/242144 DD/ 42 TD/TT: Stick Puller: XR ankle LT min 3V Reviewed date:09/21/2024 09:07:03 PM Interpretation: Performing Lab: Notes/Report: Source Facility: [facility] [place] [address] [place] [address] XRay Report Signed Patient: MATTY GARCES MR#: [id number] : 1970 Acct:[id number] Age/Sex: 53 / M ADM Date: 09/19/24 Loc: ICU 270-[address]: Venus Mendez M.D. Ordering Physician: Clarisa Vallejo D.P.M. Date of Service: 09/20/24 Procedure(s): XR ankle LT min 3V Accession Number(s): [id number] cc: Clarisa Vallejo D.P.M.; Venus Mendez M.D. [address] [address] Patient Name: MATTY GARCES MRN: [id number] date: 1970 Sex: M Assigned Patient Location: ICU Current Patient Location: ICU Accession/Order Number: [id number] Exam Date: 09/20/2024 20:45 Report Date: 09/20/2024 [...] M.D. Signed By: 09/20/242144 DD/ 42 TD/TT: Stick Puller: BLOOD GASES BTY Reviewed date:09/21/2024 08:35:02 AM Interpretation: Performing Lab: Notes/Report: [facility] , pH ABG 7.419 7.350-7.450 ABG PCO2 55.6 35.0-45.0 mmHg RESULTS VILLARREAL D TO GLENDY JAMES RN at 0440 PO2 ABG 71.3 80.0-100.0 mmHg HCO3 ABG 36 22.0-26.0 mmol/L Base Excess ABG 11.5 -2.0-2.0 mmol/L Oxygen Saturation ABG 95.4 Mundo Test POSITIVE POSITIVE O2 Mode NASAL CANNULA Liters per Minute 3 Puncture Site RR Performing Lab: see note ML - [facility] LB CBC AUTO DIFF Reviewed date:09/21/2024 01:02:57 PM Interpretation: Performing Lab: Notes/Report: [facility] , White Blood Count 7.5 4.0-11.0 [...] 3/uL Performing Lab: see note ML - [facility] CRP Reviewed date:09/21/2024 01:02:57 PM Interpretation: Performing Lab: Notes/Report: [facility] , C Reactive Protein 1.65 <=0.50 mg/dL Performing Lab: see note [facility] PROF CHEM 8 (BAS METB) Reviewed date:09/21/2024 01:02:57 PM Interpretation: Performing Lab: Notes/Report: [facility] , Sodium 140 136-145 mmol/L Potassium [...] 8.8 8.5-10.1 mg/dL Performing Lab: see note - [facility] LB Box Test Reviewed date:09/24/2024 05:28:36 PM Interpretation: Performing Lab: Notes/Report: WOUND CULTURE L GREAT TOE [facility] , BOX Test Sent Out WOUND CULTURE BOX Test Reference Lab [facility] BOX Test Date Sent 09/21/24 BOX Test Result SEE SCANNED REPORT Performing Lab: see note [facility] CBC AUTO DIFF Reviewed date:09/24/2024 10:37:52 AM Interpretation: Performing Lab: Notes/Report: [facility] , White Blood Count 6.4 4.0-11.0 10 [...] Performing Lab: see note ML - [facility] LB CRP Reviewed date:09/24/2024 10:37:52 AM Interpretation: Performing Lab: Notes/Report: [facility] , C Reactive Protein 0.89 <=0.50 mg/dL Performing Lab: see note ML - [facility] LB PROF CHEM 8 (BAS METB) Reviewed date:09/24/2024 10:37:52 AM Interpretation: Performing Lab: Notes/Report: [facility] , Sodium 140 136-145 mmol/L Potassium [...] Performing Lab: see note ML - [facility] LB VANCOMYCIN TROUGH Reviewed date:09/24/2024 10:37:52 AM Interpretation: Performing Lab: Notes/Report: [facility] , Vancomycin Trough 22.4 5.0-20.0 ug/mL Performing Lab: see note ML - [facility] LB CBC AUTO DIFF Reviewed date:10/05/2024 06:15:03 PM Interpretation: Performing Lab: Notes/Report: [facility] , White Blood Count 9.1 4.0-11.0 [...] 10 3/uL Performing Lab: see note - [facility] LB PROF 14(COMP METB) Reviewed date:10/05/2024 06:15:03 PM Interpretation: Performing Lab: Notes/Report: [facility] , Sodium 135 136-145 mmol/L Potassium [...] Globulin Ratio 0.7 Performing Lab: see note - [facility] US venous doppler LE BI Reviewed date:10/08/2024 12:37:32 PM Interpretation: Performing Lab: Notes/Report: Source Facility: [place] [address] [place] [address] Ultrasound Report Signed Patient: MATTY GARCES MR#: [id number] : 1970 Acct:[id number] Age/Sex: 54 / M ADM Date: 10/05/24 Loc: ER Attending Dr: Ordering Physician: Melissa Duggan Date of Service: 10/05/24 Procedure(s): US venous doppler LE RT Accession Number(s): [id number] cc: Venus Mendez M.D.; Melissa Duggan The [address] [address] Patient Name: MATTY GARCES MRN: [id number] date: 1970 Sex: M Assigned Patient Location: ER Current Patient Location: ED.MAIN Accession/Order Number: [id number] Exam Date: 10/05/2024 19:00 Report Date: 10/05/2024 [...] M.A. Signed By: 10/05/242017 DD/ 15 TD/TT: Stick Puller: CBC AUTO DIFF Reviewed date:10/08/2024 12:37:32 PM Interpretation: Performing Lab: Notes/Report: [facility] , White Blood Count 8.8 4.0-11.0 [...] 3/uL Performing Lab: see note ML - [facility] LB CRP Reviewed date:10/08/2024 12:37:32 PM Interpretation: Performing Lab: Notes/Report: [facility] , C Reactive Protein 2.61 <=0.50 mg/dL Performing Lab: see note ML - [facility] LB LACTATE or LACTIC ACID Reviewed date:10/08/2024 12:37:32 PM Interpretation: Performing Lab: Notes/Report: [facility] , Lactate/Lactic Acid 2.0 0.4-2.0 mmol/L Performing Lab: see note ML - [facility] LB PROF 14(COMP METB) Reviewed date:10/08/2024 12:37:32 PM Interpretation: Performing Lab: Notes/Report: [facility] , Sodium 140 136-145 mmol/L Potassium [...] Globulin Ratio 0.8 Performing Lab: see note - [facility] LB Blood Culture 1 Reviewed date:10/14/2024 04:42:10 PM Interpretation: Performing Lab: Notes/Report: RIGHT AC [facility] , Blood Culture 1 See Below For Report Blood Culture 1 NG5D NO GROWTH AT 5 DAYS. Performing Lab: see note [facility] Blood Culture 2 Reviewed date:10/14/2024 04:42:10 PM Interpretation: Performing Lab: Notes/Report: LEFT AC [facility] , Blood Culture 2 See Below For Report Blood Culture 2 NG5D NO GROWTH AT 5 DAYS. Performing Lab: see note [facility] Erythrocyte Sedimentation Ra te Reviewed date:10/08/2024 12:37:32 PM Interpretation: Performing Lab: Notes/Report: [facility] , Erythrocyte Sedimentation Rate 69 <=20 mm/hr Performing Lab: see note [facility] Venous Blood Gas Reviewed date:10/08/2024 12:37:32 PM Interpretation: Performing Lab: Notes/Report: [facility] , pH VBG 7.444 7.330-7.430 PCO2 VBG 51.7 40.0-52.0 mmHg Performing Lab: see note [facility] US venous doppler LE BI Reviewed date:10/08/2024 12:37:32 PM Interpretation: Performing Lab: Notes/Report: Source Facility: [facility] [place] [address] [place] [address] Ultrasound Report Signed Patient: MATTY GARCES MR#: [id number] : 1970 Acct:[id number] Age/Sex: 54 / M ADM Date: 10/07/24 Loc: ER Attending Dr: Ordering Physician: Dwight Garrett Date of Service: 10/07/24 Procedure(s): US venous doppler LE RT Accession Number(s): [id number] cc: Venus Mendez M.D.; Dwight Garrett [address] [address] Patient Name: MATTY GARCES MRN: [facility]:[id number] date: 1970 Sex: M Assigned Patient Location: ER Current Patient Location: ER Accession/Order Number: [id number] Exam Date: 10/07/2024 15:34 Report Date: 10/07/2024 [...] Dictated By: Dwight Saab M.D. Signed By: 10/07/24 1644 DD/ 41 TD/TT: Stick Puller: BLOOD CULTURE ID PANEL Reviewed date:03/07/2025 09:35:46 PM Interpretation: Performing Lab: Notes/Report: [facility] , CTX-M NOT APPLICABLE NOT DETECTE IMP NOT APPLICABLE NOT DETECTE KPC NOT APPLICABLE NOT DETECTE mcr-1 NOT APPLICABLE NOT DETECTE mecA/C NOT APPLICABLE NOT DETECTE mecA/C and MREJ (MRSA) NOT APPLICABLE NOT DETECTE NDM NOT APPLICABLE NOT DETECTE OXA-48-like NOT APPLICABLE NOT DETECTE Jean-Paul/B NOT APPLICABLE NOT DETECTE VIM NOT APPLICABLE NOT DETECTE Source Blood Enterococcus faecalis NOT DETECTED NOT DETECTE Enterococcus faecium NOT DETECTED NOT DETECTE Listeria monocytogenes NOT DETECTED NOT DETECTE Staphylococcus spp. NOT DETECTED NOT DETECTE Staphylococcus aureus NOT DETECTED NOT DETECTE Staphylococcus epidermidis NOT DETECTED NOT DETECTE Staphylococcus lugdunensis NOT DETECTED NOT DETECTE Streptococcus spp. NOT DETECTED NOT DETECTE Streptococcus agalactiae NOT DETECTED NOT DETECTE Streptococcus pneumoniae NOT DETECTED NOT DETECTE Streptococcus pyogenes NOT DETECTED NOT DETECTE A. calcoaceticus-baumannii Cpx NOT DETECTED NOT DETECTE Bacteroides fragilis NOT DETECTED NOT DETECTE Enterobacterales NOT DETECTED NOT DETECTE Enterobacter cloacae complex NOT DETECTED NOT DETECTE Escherichia coli NOT DETECTED NOT DETECTE Klebsiella aerogenes NOT DETECTED NOT DETECTE Klebsiella oxytoca NOT DETECTED NOT DETECTE Klebsiella pneumoniae group NOT DETECTED NOT DETECTE Proteus spp. NOT DETECTED NOT DETECTE Salmonella spp. NOT DETECTED NOT DETECTE Serratia marcescens NOT DETECTED NOT DETECTE Haemophilus influenzae NOT DETECTED NOT DETECTE Neisseria meningitidis NOT DETECTED NOT DETECTE Pseudomonas aeruginosa NOT DETECTED NOT DETECTE Stenotrophomonas maltophilia NOT DETECTED NOT DETECTE Mary albicans NOT DETECTED NOT DETECTE Mary auris NOT DETECTED NOT DETECTE Mary glabrata NOT DETECTED NOT DETECTE Mary krusei NOT DETECTED NOT DETECTE Mary parapsilosis NOT DETECTED NOT DETECTE Mary tropicalis NOT DETECTED NOT DETECTE Cryptococcus neoformans/gattii NOT DETECTED NOT DETECTE Performing Lab: see note - [facility] LB BNP Reviewed date:03/05/2025 09:30:34 PM Interpretation: Performing Lab: Notes/Report: [facility] , NT Pro B Type Natriuretic Pept 170.0 <=900.0 pg/mL Performing Lab: see note - [facility] LB CBC AUTO DIFF Reviewed date:03/05/2025 09:30:34 PM Interpretation: Performing Lab: Notes/Report: [facility] , White Blood Count 6.7 4.0-11.0 [...] 3/uL Performing Lab: see note ML - [facility] LB LACTATE or LACTIC ACID Reviewed date:03/05/2025 09:30:34 PM Interpretation: Performing Lab: Notes/Report: [facility] , Lactate/Lactic Acid 1.2 0.4-2.0 mmol/L Performing Lab: see note ML - [facility] LB PROF 14(COMP METB) Reviewed date:03/05/2025 09:30:34 PM Interpretation: Performing Lab: Notes/Report: [facility] , Sodium 140 136-145 mmol/L Potassium [...] 0.8 Performing Lab: see note ML - [facility] PTT Reviewed date:03/05/2025 09:30:34 PM Interpretation: Performing Lab: Notes/Report: [facility] , Partial Thromboplastin Time 35.3 22.3-36.2 sec Performing Lab: see note ML - [facility] Blood Culture 1 Reviewed date:03/11/2025 03:17:10 PM Interpretation: Performing Lab: Notes/Report: [facility] , Blood Culture 1 See Below For Report Blood Culture 1 NG5D NO GROWTH AT 5 DAYS.^NO GROWTH AT 5 DAYS. Performing Lab: see note ML - [facility] Prothrombin Time INR Reviewed date:03/05/2025 09:30:34 PM Interpretation: Performing Lab: Notes/Report: [facility] , Prothrombin Time 12.7 9.0-11.6 sec INR 1.22 DESIRED INR: 2.0-3.0 CONDITIONS NOT LISTED BELOW 2.5-3.5 FOR PROSTHETIC HEART VALVE REPLACEMENT 2.5-3.5 RECURRENT THROMBOSIS Performing Lab: see note ML - [facility] Troponin I High Sensitivity Reviewed date:03/05/2025 09:30:34 PM Interpretation: Performing Lab: Notes/Report: [facility] , Troponin I High Sensitivity 7.3 4.0-76.1 pg/m L CUT-OFF POINTS HAVE BEEN ESTABLISHED BASED ON THE FOURTH UNIVERSAL DEFINITION OF MYOCARDIAL INFARCTION. THE UPPER REFERENCE LIMIT (URL) OF TROPONIN, DEFINED THE 99TH PERCENTILE OF cTnI DISTRIBUTION IN A REFERENCE POPULATION, HAS BEEN CONFIRMED THE DECISION THRESHOLD FOR NE DIAGNOSIS. 99TH PERCENTILE = 76.2 PG/ML NOTE: HIGH-SENSITIVITY TROPONIN ASSAY IS NOT INTENDED TO BE USED IN ISOLATION BUT SHOULD BE INTERPRETED IN CONJUNCTION WITH OTHER DIAGNOSTIC AND CLINICAL INFORMATION. Performing Lab: see note ML - [facility] Aerobe ID + Suscept Reviewed date:03/11/2025 05:04:50 PM Interpretation: Performing Lab: Notes/Report: [facility] , Aerobe ID + Suscept See Below For Report Aerobe ID + Suscept O:MICLUT Isolated Aerobe ID + Suscept *ABNORMAL* Aerobe ID + Suscept O:MICLUT Isolated Aerobe ID + Suscept Gram positive cocci Aerobe ID + Suscept O:MICLUT Isolated Aerobe ID + Suscept *ABNORMAL* Aerobe ID + Suscept O:MICLUT Isolated Aerobe ID + Suscept Received aerobic bottle only. Aerobe ID + Suscept O:MICLUT Isolated Aerobe ID + Suscept Identification and sensitivities to follow. Aerobe ID + Suscept O:MICLUT Isolated Aerobe ID + Suscept Organism: Micrococcu s luteus : Aerobe ID + Suscept O:MICLUT Isolated Aerobe ID + Suscept *ABNORMAL* Aerobe ID + Suscept O:MICLUT Isolated Aerobe ID + Suscept Received aerobic bottle only. Aerobe ID + Suscept O:MICLUT Isolated Aerobe ID + Suscept Susceptibility not normally performed on this organism. Aerobe ID + Suscept O:MICLUT Isolated Aerobe ID + Suscept Micrococcus luteus Aerobe ID + Suscept O:MICLUT Isolated Aerobe ID + Suscept See Below For Report Aerobe ID + Suscept O:MICLUT Isolated Aerobe ID + Suscept Performed at: [facility] Aerobe ID + Suscept O:MICLUT Isolated Aerobe ID + Suscept [address] [place] [address] [phone] Aerobe ID + Suscept O:MICLUT Isolated Aerobe ID + Suscept Interchange Agent: Norma Snyder PhD, Phone: [phone] Aerobe ID + Suscept O:MICLUT Isolated Performing Lab: see note - [facility] LB SEE REPORT - Project Admin Id information not found for OBX-specific creative services producer legend XR ankle RT min 3V Reviewed date:03/05/2025 08:19:57 PM Interpretation: Performing Lab: Notes/Report: Source Facility: [place] [address] [place] [address] XRay Report Signed Patient: MATTY GARCES MR#: [id number] : 1970 Acct:[id number] Age/Sex: 54 / M ADM Date: 03/05/25 Loc: ER Attending Dr: Ordering Physician: Jess Ryan Date of Service: 03/05/25 Procedure(s): XR ankle RT min 3V Accession Number(s): [id number] cc: Jess Ryan; Venus Mendez M.D. [place] [id number] Patient Name: MATTY GARCES MRN: [facility]:[id number] date: 1970 Sex: M Assigned Patient Location: ER Current Patient Location: ER Accession/Order Number: [id number] Exam Date: 03/05/2025 18:27 Report Date: 03/05/2025 [...] Irving M.D. 03/05/2025 6:33 PM Dictation Location: [place] [address] Electronically authenticated by: [id number] Y Date: 03/05/2025 18:33 Dictated By: Francis Irving M.D. Signed By: 03/05/251835 DD/ 32 TD/TT: Stick Puller: ECG 12 lead Reviewed date:03/07/2025 09:35:46 PM Interpretation: Performing Lab: Notes/Report: Source Facility: [facility] [place] [address] [address] Electrocardiograph Report Signed Patient: MATTY GARCES MR#: [id number] : 1970 Acct:[id number] Age/Sex: 54 / M ADM Date: 03/05/25 Loc: [place] 221-[address]: Venus Mendez M.D. 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 Measurements Intervals [place] Rate: 76 P: 60 SD: 178 QRS: 69 QRSD: 100 T: 46 QT: 406 QTc: 437 Interpretive Statements 1100 Sinus rhythm 0102 ARTIFACT PRESENT 9110 normal ECG Compared to ECG 09/23/2024 05:51:07 No significant changes Electronically Signed On 03-06-2025 9:29:34 EDT by RAMIRO WALLS M.D. Dictated By: RAMIRO WALLS Signed By: 03/06/25928 DD/ 06 TD/TT: Stick Puller: PROF WRIGHT 8 ([facility]) Reviewed date:03/07/2025 09:35:46 PM Interpretation: Performing Lab: Notes/Report: [facility] , Sodium 142 136-145 mmol/L Potassium [...] 8.5-10.1 mg/dL Performing Lab: see note - [facility] LB CBC no Diff (Hemogram) Reviewed date:03/07/2025 09:35:46 PM Interpretation: Performing Lab: Notes/Report: [facility] , White Blood Count 6.8 4.0-11.0 [...] 9.5-13.5 fL Performing Lab: see note - [facility] LB XR foot LT min 3V Reviewed date:03/07/2025 09:35:46 PM Interpretation: Performing Lab: Notes/Report: Source Facility: [place] [address] [place] [address] XRay Report Signed Patient: MATTY GARCES MR#: [id number] : 1970 Acct:[id number] Age/Sex: 54 / M ADM Date: 03/05/25 Loc: [place] 221-[address]: Venus Mendez M.D. Ordering Physician: Clarisa Vallejo D.P.M. Date of Service: 03/06/25 Procedure(s): XR foot LT min 3V Accession Number(s): [id number] cc: Clarisa Vallejo D.P.M.; Venus Mendez M.D. [place] [address] Patient Name: MATTY GARCES MRN: [id number] date: 1970 Sex: M Assigned Patient Location: MS Current Patient Location: MS Accession/Order Number: [id number] Exam Date: 03/06/2025 13:16 Report Date: 03/06/2025 13:19 At the request of: CLARISA VALLEJO DPM Procedure: XR foot LT min 3V XR foot LT min 3V 03/06/2025 12:56 PM SIGNS AND SYMPTOMS: hallux ulcer Y PROTOCOL: Frontal, lateral, and oblique radiographs of the left foot COMPARISON: None FINDINGS: There is subcutaneous emphysema or soft tissue swelling along the great toe centered at the interphalangeal joint. There is accompanying osteopenia along the interphalangeal joint. This is suspicious for cellulitis and osteomyelitis. There is no fracture or dislocation. There is Achilles surface calcaneal spurring. Postop changes are noted in the distal tibia and fibula. There is a 4 mm radiodense linear foreign body in the plantar soft tissues of the heel. XR/XR foot LT min 3V IMPRESSION: There is subcutaneous emphysema or soft tissue swelling along the great toe centered at the interphalangeal joint. There is accompanying osteopenia along the interphalangeal joint. This is suspicious for cellulitis and osteomyelitis. There is a 4 mm radiodense linear foreign body in the plantar soft tissues of the heel. Impression dictated by: Francis Irving M.D. 03/06/2025 1:19 PM Dictation Location: [place] [address] Electronically authenticated by: [id number] Y Date: 03/06/2025 13:19 Dictated By: Francis Irving M.D. Signed By: 03/06/25 1321 DD/ 1319 TD/TT: Stick Puller: CT ANKLE RT WO CON Reviewed date:04/11/2025 11:11:49 PM Interpretation: Performing Lab: Notes/Report: Source Facility: [facility]-[address] [place] [address] [place] [address] CT Scan Report Signed Patient: MATTY GARCES MR#: [id number] : 1970 Acct:[id number] Age/Sex: 54 / M ADM Date: 04/10/25 Loc: CT Attending Dr: Venus Mendez M.D. Ordering Physician: Venus Mendez M.D. Date of Service: 04/10/25 Procedure(s): CT ankle RT wo con Accession Number(s): [id number] cc: Venus Mendez M.D. [address] [address] Patient Name: MATTY GARCES MRN: [id number] date: 1970 Sex: M Assigned Patient Location: CT Current Patient Location: CT Accession/Order Number: [id number] Exam Date: 04/10/2025 15:45 Report Date: 04/10/2025 15:56 At the request of: VENUS MENDEZ MD Procedure: CT ankle RT wo con CT right ankle WITHOUT CONTRAST : CLINICAL HISTORY: Chronic right ankle pain for 6 months COMPARISON: None TECHNIQUE: Spiral axial unenhanced images were obtained through the right ankle. Sagittal, coronal reconstructions were also reviewed. This CT exam was performed using one or more following dose reduction techniques: Automated exposure control, adjustment of the mA and/or kV according to patient size, or use of iterative reconstruction technique. FINDINGS: Bones are grossly demineralized. There appears to be incomplete healing fractures of the distal tibia and fibula with hardware involving the distal tibia. Both fractures appear comminuted. There is surrounding callus formation involving both fractures. Ankle mortise appears intact with degenerative change. Presumed remote injury involving the lateral malleolus. Degenerative changes are seen involving the visualized hindfoot and midfoot. No significant soft tissue swelling is present. No fluid collection to suggest abscess.. CT/CT ankle RT wo con IMPRESSION: INCOMPLETE HEALING COMMINUTED FRACTURES INVOLVING THE DISTAL TIBIA AND FIBULA WITH HARDWARE INVOLVING THE DISTAL TIBIA. NO ACUTE BONY PROCESS IS SEEN. DEGENERATIVE CHANGES INVOLVING THE ANKLE MORTISE WITH PRESUMED REMOTE TRAUMA INVOLVING THE LATERAL MALLEOLUS. Impression dictated by: Bora Gomez Jr., D.O. 04/10/2025 3:56 PM Dictation Location: [place] [address] Electronically authenticated by: [id number] Y Date: 04/10/2025 15:56 Dictated By: Bora Gomez M.D. Signed By: 04/10/25 1559 DD/ 1556 TD/TT: Stick Puller: Testosterone Reviewed date:04/25/2025 12:59:24 PM Interpretation: Performing Lab: Notes/Report: [facility] , Testosterone >1500 264-916 ng/dL Adult male reference interval is based on a population of healthy nonobese males (BMI <30) between 19 and 39 years old. adia Ch.al. JCEM 2017,102;6518-7943. PMID: [id number]. Performed at: - [facility] [address] [id number] Interchange Agent: Arthur Snyder PhD, Phone: [phone] Performing Lab: see note - [facility] LB XR tibia fibula RT 2V Reviewed date:05/07/2025 06:51:13 PM Interpretation: Performing Lab: Notes/Report: Source Facility: [place] [address] XRay Report Signed Patient: MATTY GARCES MR#: [id number] : 1970 Acct:[id number] Age/Sex: 54 / M ADM Date: 05/07/25 Loc: RAD Attending Dr: Jameel Allen D.O. Ordering Physician: Jameel Allen Date of Service: 05/07/25 Procedure(s): XR tibia fibula RT 2V Accession Number(s): [id number] cc: Venus Mendez M.D.; Jameel Allen [place] [address] Patient Name: MATTY GARCES MRN: [id number] date: 1970 Sex: M Assigned Patient Location: [facility] Current Patient Location: RAD Accession/Order Number: [id number] Exam Date: 05/07/2025 11:50 Report Date: 05/07/2025 12:43 At the request of: JAMEEL ALLEN DO Procedure: XR tibia fibula RT 2V 2 views right tibia and fibula plain film HISTORY: Right lower extremity pain. Fell. COMPARISON: 09/23/2024 ACUTE FINDINGS: Healing of distal tibia and fibular fracture. Callus formation. DEGENERATIVE CHANGE: Similar SOFT TISSUE FINDINGS: Unremarkable JOINT EFFUSION: None POSTOP CHANGES: Femoral intramedullary fixation. No hardware complication BONE MINERALIZATION: Adequate XR/XR tibia fibula RT 2V IMPRESSION: No acute fracture. Healing fracture with stable alignment and hardware Impression dictated by: Crow Contreras M.D. 05/07/2025 12:43 PM Dictation Location: [place] [address] Electronically authenticated by: [id number] Y Date: 05/07/2025 12:43 Dictated By: Crow Contreras D.O. Signed By: 05/07/25 1246 DD/ 1243 TD/TT: Stick Puller: CBC AUTO DIFF Reviewed date:06/16/2025 01:01:31 PM Interpretation: Performing Lab: Notes/Report: [facility] , White Blood Count 8.6 4.0-11.0 10 3/uL Red Blood Count 4.76 4.70-6.10 10 6/uL Hemoglobin 13.4 14.0-18.0 g/dL Hematocrit 42.5 42.0-54.0 % Mean Corpuscular Volume 89.3 80.0-94.0 fL Mean Corpuscular Hemoglobin 28.2 25.9-34.0 pg Mean Corpuscular HGB Conc 31.5 29.9-35.2 g/dL Red Cell Distribution Width 13.8 11.0-15.0 % Platelet Count 168 150-450 10 3/uL Mean Platelet Volume 10.0 9.5-13.5 fL Neutrophils Percent Auto 79.1 43.0-75.0 % Lymphocytes Percent Auto 10.1 20.5-60.0 % Monocytes Percent Auto 8.3 1.7-12.0 % Eosinophils Percent Auto 1.4 0.9-7.0 % Basophils Percent Auto 0.6 0.2-2.0 % Immature Granulocytes Pct Auto 0.5 0.0-0.5 % Neutrophils Absolute Auto 6.8 1.4-6.5 10 3/uL Lymphocytes Absolute Auto 0.9 1.2-3.8 10 3/uL Monocytes Absolute Auto 0.7 0.3-0.8 10 3/uL Eosinophils Absolute Auto 0.1 0.0-0.7 10 3/uL Basophils Absolute Auto 0.1 0.0-0.1 10 3/uL Immature Granulocytes Abs Auto 0.04 0.00-0.03 10 3/uL Performing Lab: see note [facility] PROF CHEM 8 (BAS METB) Reviewed date:06/16/2025 01:01:31 PM Interpretation: Performing Lab: Notes/Report: [facility] , Sodium 142 136-145 mmol/L Potassium 3.4 3.5-5.1 mmol/L Chloride 103 98-107 mmol/L Carbon Dioxide 31.8 21.0-32.0 mmol/L Anion Gap 10.6 Glucose 116 74-106 mg/dL Blood Urea Nitrogen 12.0 7.0-18.0 mg/dL Creatinine 1.04 0.70-1.30 mg/dL Estimated GFR ( Elizabeth >60 >=60 mL/min/1.73m 2 Estimated GFR (Non- Gwen >60 >=60 mL/min/1.73m 2 BUN Creatinine Ratio 11.5 Calcium 9.3 8.5-10.1 mg/dL Performing Lab: see note [facility] Blood Culture 1 Reviewed date:06/21/2025 06:12:36 PM Interpretation: Performing Lab: Notes/Report: [facility] , Blood Culture 1 See Below For Report Blood Culture 1 NG5D NO GROWTH AT 5 DAYS.^NO GROWTH AT 5 DAYS. Performing Lab: see note [facility] Blood Culture 2 Reviewed date:06/21/2025 06:12:36 PM Interpretation: Performing Lab: Notes/Report: [facility] , Blood Culture 2 See Below For Report Blood Culture 2 NG5D NO GROWTH AT 5 DAYS.^NO GROWTH AT 5 DAYS. Performing Lab: see note [facility] Erythrocyte Sedimentation Ra te Reviewed date:06/16/2025 01:01:31 PM Interpretation: Performing Lab: Notes/Report: [facility] , Erythrocyte Sedimentation Rate 46 <=20 mm/hr Performing Lab: see note [facility] Aerobic Culture Reviewed date:06/19/2025 06:54:26 PM Interpretation: Performing Lab: Notes/Report: [facility] , Aerobic Culture See Below For Report Aerobic Culture Organism: Staphylococcus aureus : O:MRSA Isolated O:STAAUR Isolated Organism: 1.1 Antibiotic Interpretation ADAM Status Aerobic Culture *ABNORMAL* Aerobic Culture Organism: Staphylococcus aureus : O:MRSA Isolated O:STAAUR Isolated Organism: 1.1 Antibiotic Interpretation ADAM Status Aerobic Culture Heavy growth Aerobic Culture Organism: Staphylococcus aureus : O:MRSA Isolated O:STAAUR Isolated Organism: 1.1 Antibiotic Interpretation ADAM Status Aerobic Culture Aerobic Culture Organism: Staphylococcus aureus : O:MRSA Isolated O:STAAUR Isolated Organism: 1.1 Antibiotic Interpretation ADAM Status Aerobic Culture Mixed skin estrellita including multiple gram negative rods. Aerobic Culture Organism: Staphylococcus aureus : O:MRSA Isolated O:STAAUR Isolated Organism: 1.1 Antibiotic Interpretation ADAM Status Aerobic Culture Heavy growth Aerobic Culture Organism: Staphylococcus aureus : O:MRSA Isolated O:STAAUR Isolated Organism: 1.1 Antibiotic Interpretation ADAM Status Aerobic Culture Staphylococcus aureus Aerobic Culture Organism: Staphylococcus aureus : O:MRSA Isolated O:STAAUR Isolated Organism: 1.1 Antibiotic Interpretation ADAM Status Aerobic Culture Organism: Methicilli n Resis Staph Aureus : Aerobic Culture Organism: Staphylococcus aureus : O:MRSA Isolated O:STAAUR Isolated Organism: 1.1 Antibiotic Interpretation ADAM Status Aerobic Culture *ABNORMAL* Aerobic Culture Organism: Staphylococcus aureus : O:MRSA Isolated O:STAAUR Isolated Organism: 1.1 Antibiotic Interpretation ADAM Status Aerobic Culture Methicillin - resistant Aerobic Culture Organism: Staphylococcus aureus : O:MRSA Isolated O:STAAUR Isolated Organism: 1.1 Antibiotic Interpretation ADAM Status Aerobic Culture Based on resistance to oxacillin this isolate would be Aerobic Culture Organism: Staphylococcus aureus : O:MRSA Isolated O:STAAUR Isolated Organism: 1.1 Antibiotic Interpretation ADAM Status Aerobic Culture resistant to all currently available beta-lactam Aerobic Culture Organism: Staphylococcus aureus : O:MRSA Isolated O:STAAUR Isolated Organism: 1.1 Antibiotic Interpretation ADAM Status Aerobic Culture antimicrobial agents , with the exception of the newer Aerobic Culture Organism: Staphylococcus aureus : O:MRSA Isolated O:STAAUR Isolated Organism: 1.1 Antibiotic Interpretation ADAM Status Aerobic Culture cephalosporins with anti-MRSA activity, such as Aerobic Culture Organism: Staphylococcus aureus : O:MRSA Isolated O:STAAUR Isolated Organism: 1.1 Antibiotic Interpretation ADAM Status Aerobic Culture Ceftaroline Aerobic Culture Organism: Staphylococcus aureus : O:MRSA Isolated O:STAAUR Isolated Organism: 1.1 Antibiotic Interpretation ADAM Status Aerobic Culture Heavy growth Aerobic Culture Organism: Staphylococcus aureus : O:MRSA Isolated O:STAAUR Isolated Organism: 1.1 Antibiotic Interpretation ADAM Status Aerobic Culture Aerobic Culture Organism: Staphylococcus aureus : O:MRSA Isolated O:STAAUR Isolated Organism: 1.1 Antibiotic Interpretation ADAM Status Aerobic Culture Mixed skin estrellita including multiple gram negative rods. Aerobic Culture Organism: Staphylococcus aureus : O:MRSA Isolated O:STAAUR Isolated Organism: 1.1 Antibiotic Interpretation ADAM Status Aerobic Culture Heavy growth Aerobic Culture Organism: Staphylococcus aureus : O:MRSA Isolated O:STAAUR Isolated Organism: 1.1 Antibiotic Interpretation ADAM Status Aerobic Culture Methicillin Resis Staph Aureus Aerobic Culture Organism: Staphylococcus aureus : O:MRSA Isolated O:STAAUR Isolated Organism: 1.1 Antibiotic Interpretation ADAM Status Aerobic Culture See Below For Report Aerobic Culture Organism: Staphylococcus aureus : O:MRSA Isolated O:STAAUR Isolated Organism: 1.1 Antibiotic Interpretation ADAM Status Aerobic Culture See Below For Report Aerobic Culture Organism: Staphylococcus aureus : O:MRSA Isolated O:STAAUR Isolated Organism: 1.1 Antibiotic Interpretation ADAM Status Aerobic Culture Performed at: [facility] Aerobic Culture Organism: Staphylococcus aureus : O:MRSA Isolated O:STAAUR Isolated Organism: 1.1 Antibiotic Interpretation ADAM Status Aerobic Culture [address] [place], [place] [id number] Aerobic Culture Organism: Staphylococcus aureus : O:MRSA Isolated O:STAAUR Isolated Organism: 1.1 Antibiotic Interpretation ADAM Status Aerobic Culture Interchange Agent: Norma Snyder PhD, Phone: [phone] Aerobic Culture Organism: Staphylococcus aureus : O:MRSA Isolated O:STAAUR Isolated Organism: 1.1 Antibiotic Interpretation ADAM Status Aerobic Culture See Below For Report Aerobic Culture Organism: Staphylococcus aureus : O:MRSA Isolated O:STAAUR Isolated Organism: 1.1 Antibiotic Interpretation ADAM Status Aerobic Culture Ciprofloxacin R F Aerobic Culture Organism: Staphylococcus aureus : O:MRSA Isolated O:STAAUR Isolated Organism: 1.1 Antibiotic Interpretation ADAM Status Aerobic Culture Erythromycin R F Aerobic Culture Organism: Staphylococcus aureus : O:MRSA Isolated O:STAAUR Isolated Organism: 1.1 Antibiotic Interpretation ADAM Status Aerobic Culture Gentamicin S F Aerobic Culture Organism: Staphylococcus aureus : O:MRSA Isolated O:STAAUR Isolated Organism: 1.1 Antibiotic Interpretation ADAM Status Aerobic Culture Levofloxacin R F Aerobic Culture Organism: Staphylococcus aureus : O:MRSA Isolated O:STAAUR Isolated Organism: 1.1 Antibiotic Interpretation ADAM Status Aerobic Culture Linezolid S F Aerobic Culture Organism: Staphylococcus aureus : O:MRSA Isolated O:STAAUR Isolated Organism: 1.1 Antibiotic Interpretation ADAM Status Aerobic Culture Oxacillin R F Aerobic Culture Organism: Staphylococcus aureus : O:MRSA Isolated O:STAAUR Isolated Organism: 1.1 Antibiotic Interpretation ADAM Status Aerobic Culture Penicillin R F Aerobic Culture Organism: Staphylococcus aureus : O:MRSA Isolated O:STAAUR Isolated Organism: 1.1 Antibiotic Interpretation ADAM Status Aerobic Culture Rifampin S F Aerobic Culture Organism: Staphylococcus aureus : O:MRSA Isolated O:STAAUR Isolated Organism: 1.1 Antibiotic Interpretation ADAM Status Aerobic Culture Tetracycline R F Aerobic Culture Organism: Staphylococcus aureus : O:MRSA Isolated O:STAAUR Isolated Organism: 1.1 Antibiotic Interpretation ADAM Status Aerobic Culture Trimethoprim/Sulfame t hoxazole R F Aerobic Culture Organism: Staphylococcus aureus : O:MRSA Isolated O:STAAUR Isolated Organism: 1.1 Antibiotic Interpretation ADAM Status Aerobic Culture Vancomycin S F Aerobic Culture Organism: Staphylococcus aureus : O:MRSA Isolated O:STAAUR Isolated Organism: 1.1 Antibiotic Interpretation ADAM Status Aerobic Culture Clindamycin S F Aerobic Culture Organism: Staphylococcus aureus : O:MRSA Isolated O:STAAUR Isolated Organism: 1.1 Antibiotic Interpretation ADAM Status Performing Lab: see note LC - [facility] LB SEE REPORT - Project Admin Id information not found for OBX-specific creative services producer legend Anaerobic Culture Reviewed date:06/22/2025 12:38:34 PM Interpretation: Performing Lab: Notes/Report: [facility] , Anaerobic Culture See Below For Report Anaerobic Culture Anaerobic Culture Specimen has been received and testing has been initiated. Anaerobic Culture Anaerobic Culture Anaerobic Culture Anaerobic Culture No anaerobic growth in 72 hours. Anaerobic Culture Performing Lab: see note LC - [facility] LB XR foot LT min 3V Reviewed date:06/16/2025 01:01:31 PM Interpretation: Performing Lab: Notes/Report: Source Facility: [place] [address] [place] [address] XRay Report Signed Patient: MATTY GARCES MR#: [id number] : 1970 Acct:[id number] Age/Sex: 54 / M ADM Date: 06/16/25 Loc: [place] 201-[address]: Bonnie Tobar M.D. Ordering Physician: Sera Wayne M.D. Date of Service: 06/16/25 Procedure(s): XR foot LT min 3V Accession Number(s): [id number] cc: Venus Mendez M.D.; Sera Wayne M.D. The [address] [address] Patient Name: MATTY GARCES MRN: [id number] date: 1970 Sex: M Assigned Patient Location: ED.MAIN Current Patient Location: MS Accession/Order Number: [id number] Exam Date: 06/16/2025 02:06 Report Date: 06/16/2025 08:38 At the request of: SERA WAYNE MD Procedure: XR foot LT min 3V LEFT FOOT - 3 views CLINICAL HISTORY: Hallux infection COMPARISON: Left foot 03/06/2025 FINDINGS: Toe positioning is suboptimal. There is diffuse soft tissue swelling involving the first digit similar to the prior study. Degenerative changes involving the first digit grossly similar to the prior study. No definitive plain film evidence of acute osteomyelitis. Hardware fixation is seen involving the distal tibia and fibula. Mild degenerative changes involving the midfoot. XR/XR foot LT min 3V IMPRESSION: DIFFUSE SOFT TISSUE SWELLING INVOLVING THE FIRST DIGIT SIMILAR TO THE PRIOR STUDY WITH DEGENERATIVE CHANGE. NO DEFINITIVE ACUTE BONY PROCESS OR PLAIN FILM EVIDENCE OF OSTEOMYELITIS IS SEEN WHEN COMPARED TO THE PRIOR STUDY. Impression dictated by: Bora Gomez Jr., D.O. 06/16/2025 8:38 AM Dictation Location: [place] [address] Electronically authenticated by: [id number] Y Date: 06/16/2025 08:38 Dictated By: Bora Gomez M.D. Signed By: 06/16/25 0840 DD/ TD/TT: Stick Puller: CRP Reviewed date:06/16/2025 01:01:31 PM Interpretation: Performing Lab: Notes/Report: [facility] , C Reactive Protein 2.79 <=0.50 mg/dL Performing Lab: see note ML - [facility] LB Erythrocyte Sedimentation Ra te Reviewed date:06/16/2025 01:01:31 PM Interpretation: Performing Lab: Notes/Report: [facility] , Erythrocyte Sedimentation Rate 61 <=20 mm/hr Performing Lab: see note ML - [facility] LB Aerobic Culture Reviewed date:06/22/2025 12:38:34 PM Interpretation: Performing Lab: Notes/Report: [facility] , Aerobic Culture See Below For Report Aerobic Culture Organism: Staphylococcus aureus : O:MRSA Isolated O:STAAUR Isolated Organism: 2.1 Antibiotic Interpretation ADAM Status Ciprofloxacin Ciprofloxacin R F Erythromycin Erythromycin R F Gentamicin Gentamicin S F Levofloxacin Levofloxacin R F Linezolid Linezolid S F Oxacillin Oxacillin R F Penicillin Penicillin R F Rifampin Rifampin S F Tetracycline Tetracycline R F Trimethoprim/Sulfamet hoxazole Trimethoprim/Sulfamet hoxazole R F Vancomycin Vancomycin S F Clindamycin Clindamycin S F Aerobic Culture *ABNORMAL* Aerobic Culture Organism: Staphylococcus aureus : O:MRSA Isolated O:STAAUR Isolated Organism: 2.1 Antibiotic Interpretation ADAM Status Ciprofloxacin Ciprofloxacin R F Erythromycin Erythromycin R F Gentamicin Gentamicin S F Levofloxacin Levofloxacin R F Linezolid Linezolid S F Oxacillin Oxacillin R F Penicillin Penicillin R F Rifampin Rifampin S F Tetracycline Tetracycline R F Trimethoprim/Sulfamet hoxazole Trimethoprim/Sulfamet hoxazole R F Vancomycin Vancomycin S F Clindamycin Clindamycin S F Aerobic Culture Heavy growth Aerobic Culture Organism: Staphylococcus aureus : O:MRSA Isolated O:STAAUR Isolated Organism: 2.1 Antibiotic Interpretation ADAM Status Ciprofloxacin Ciprofloxacin R F Erythromycin Erythromycin R F Gentamicin Gentamicin S F Levofloxacin Levofloxacin R F Linezolid Linezolid S F Oxacillin Oxacillin R F Penicillin Penicillin R F Rifampin Rifampin S F Tetracycline Tetracycline R F Trimethoprim/Sulfamet hoxazole Trimethoprim/Sulfamet hoxazole R F Vancomycin Vancomycin S F Clindamycin Clindamycin S F Aerobic Culture Aerobic Culture Organism: Staphylococcus aureus : O:MRSA Isolated O:STAAUR Isolated Organism: 2.1 Antibiotic Interpretation ADAM Status Ciprofloxacin Ciprofloxacin R F Erythromycin Erythromycin R F Gentamicin Gentamicin S F Levofloxacin Levofloxacin R F Linezolid Linezolid S F Oxacillin Oxacillin R F Penicillin Penicillin R F Rifampin Rifampin S F Tetracycline Tetracycline R F Trimethoprim/Sulfamet hoxazole Trimethoprim/Sulfamet hoxazole R F Vancomycin Vancomycin S F Clindamycin Clindamycin S F Aerobic Culture Mixed skin estrellita including multiple gram negative rods. Aerobic Culture Organism: Staphylococcus aureus : O:MRSA Isolated O:STAAUR Isolated Organism: 2.1 Antibiotic Interpretation ADAM Status Ciprofloxacin Ciprofloxacin R F Erythromycin Erythromycin R F Gentamicin Gentamicin S F Levofloxacin Levofloxacin R F Linezolid Linezolid S F Oxacillin Oxacillin R F Penicillin Penicillin R F Rifampin Rifampin S F Tetracycline Tetracycline R F Trimethoprim/Sulfamet hoxazole Trimethoprim/Sulfamet hoxazole R F Vancomycin Vancomycin S F Clindamycin Clindamycin S F Aerobic Culture Heavy growth Aerobic Culture Organism: Staphylococcus aureus : O:MRSA Isolated O:STAAUR Isolated Organism: 2.1 Antibiotic Interpretation ADAM Status Ciprofloxacin Ciprofloxacin R F Erythromycin Erythromycin R F Gentamicin Gentamicin S F Levofloxacin Levofloxacin R F Linezolid Linezolid S F Oxacillin Oxacillin R F Penicillin Penicillin R F Rifampin Rifampin S F Tetracycline Tetracycline R F Trimethoprim/Sulfamet hoxazole Trimethoprim/Sulfamet hoxazole R F Vancomycin Vancomycin S F Clindamycin Clindamycin S F Aerobic Culture Staphylococcus aureus Aerobic Culture Organism: Staphylococcus aureus : O:MRSA Isolated O:STAAUR Isolated Organism: 2.1 Antibiotic Interpretation ADAM Status Ciprofloxacin Ciprofloxacin R F Erythromycin Erythromycin R F Gentamicin Gentamicin S F Levofloxacin Levofloxacin R F Linezolid Linezolid S F Oxacillin Oxacillin R F Penicillin Penicillin R F Rifampin Rifampin S F Tetracycline Tetracycline R F Trimethoprim/Sulfamet hoxazole Trimethoprim/Sulfamet hoxazole R F Vancomycin Vancomycin S F Clindamycin Clindamycin S F Aerobic Culture Organism: Halimaicilli n Dayna Staph Aureus : Aerobic Culture Organism: Staphylococcus aureus : O:MRSA Isolated O:STAAUR Isolated Organism: 2.1 Antibiotic Interpretation ADAM Status Ciprofloxacin Ciprofloxacin R F Erythromycin Erythromycin R F Gentamicin Gentamicin S F Levofloxacin Levofloxacin R F Linezolid Linezolid S F Oxacillin Oxacillin R F Penicillin Penicillin R F Rifampin Rifampin S F Tetracycline Tetracycline R F Trimethoprim/Sulfamet hoxazole Trimethoprim/Sulfamet hoxazole R F Vancomycin Vancomycin S F Clindamycin Clindamycin S F Aerobic Culture *ABNORMAL* Aerobic Culture Organism: Staphylococcus aureus : O:MRSA Isolated O:STAAUR Isolated Organism: 2.1 Antibiotic Interpretation ADAM Status Ciprofloxacin Ciprofloxacin R F Erythromycin Erythromycin R F Gentamicin Gentamicin S F Levofloxacin Levofloxacin R F Linezolid Linezolid S F Oxacillin Oxacillin R F Penicillin Penicillin R F Rifampin Rifampin S F Tetracycline Tetracycline R F Trimethoprim/Sulfamet hoxazole Trimethoprim/Sulfamet hoxazole R F Vancomycin Vancomycin S F Clindamycin Clindamycin S F Aerobic Culture Methicillin - resistant Aerobic Culture Organism: Staphylococcus aureus : O:MRSA Isolated O:[facility] Isolated Organism: 2.1 Antibiotic Interpretation ADAM Status Ciprofloxacin Ciprofloxacin R F Erythromycin Erythromycin R F Gentamicin Gentamicin S F Levofloxacin Levofloxacin R F Linezolid Linezolid S F Oxacillin Oxacillin R F Penicillin Penicillin R F Rifampin Rifampin S F Tetracycline Tetracycline R F Trimethoprim/Sulfamet hoxazole Trimethoprim/Sulfamet hoxazole R F Vancomycin Vancomycin S F Clindamycin Clindamycin S F Aerobic Culture Based on resistance to oxacillin this isolate would be Aerobic Culture Organism: Staphylococcus aureus : O:MRSA Isolated O:[facility] Isolated Organism: 2.1 Antibiotic Interpretation ADAM Status Ciprofloxacin Ciprofloxacin R F Erythromycin Erythromycin R F Gentamicin Gentamicin S F Levofloxacin Levofloxacin R F Linezolid Linezolid S F Oxacillin Oxacillin R F Penicillin Penicillin R F Rifampin Rifampin S F Tetracycline Tetracycline R F Trimethoprim/Sulfamet hoxazole Trimethoprim/Sulfamet hoxazole R F Vancomycin Vancomycin S F Clindamycin Clindamycin S F Aerobic Culture resistant to all currently available beta-lactam Aerobic Culture Organism: Staphylococcus aureus : O:MRSA Isolated O:[facility] Isolated Organism: 2.1 Antibiotic Interpretation ADAM Status Ciprofloxacin Ciprofloxacin R F Erythromycin Erythromycin R F Gentamicin Gentamicin S F Levofloxacin Levofloxacin R F Linezolid Linezolid S F Oxacillin Oxacillin R F Penicillin Penicillin R F Rifampin Rifampin S F Tetracycline Tetracycline R F Trimethoprim/Sulfamet hoxazole Trimethoprim/Sulfamet hoxazole R F Vancomycin Vancomycin S F Clindamycin Clindamycin S F Aerobic Culture antimicrobial agents , with the exception of the newer Aerobic Culture Organism: Staphylococcus aureus : O:MRSA Isolated O:[facility] Isolated Organism: 2.1 Antibiotic Interpretation ADAM Status Ciprofloxacin Ciprofloxacin R F Erythromycin Erythromycin R F Gentamicin Gentamicin S F Levofloxacin Levofloxacin R F Linezolid Linezolid S F Oxacillin Oxacillin R F Penicillin Penicillin R F Rifampin Rifampin S F Tetracycline Tetracycline R F Trimethoprim/Sulfamet hoxazole Trimethoprim/Sulfamet hoxazole R F Vancomycin Vancomycin S F Clindamycin Clindamycin S F Aerobic Culture cephalosporins with anti-MRSA activity, such as Aerobic Culture Organism: Staphylococcus aureus : O:MRSA Isolated O:STAAUR Isolated Organism: 2.1 Antibiotic Interpretation ADAM Status Ciprofloxacin Ciprofloxacin R F Erythromycin Erythromycin R F Gentamicin Gentamicin S F Levofloxacin Levofloxacin R F Linezolid Linezolid S F Oxacillin Oxacillin R F Penicillin Penicillin R F Rifampin Rifampin S F Tetracycline Tetracycline R F Trimethoprim/Sulfamet hoxazole Trimethoprim/Sulfamet hoxazole R F Vancomycin Vancomycin S F Clindamycin Clindamycin S F Aerobic Culture Ceftaroline Aerobic Culture Organism: Staphylococcus aureus : O:MRSA Isolated O:STAAUR Isolated Organism: 2.1 Antibiotic Interpretation ADAM Status Ciprofloxacin Ciprofloxacin R F Erythromycin Erythromycin R F Gentamicin Gentamicin S F Levofloxacin Levofloxacin R F Linezolid Linezolid S F Oxacillin Oxacillin R F Penicillin Penicillin R F Rifampin Rifampin S F Tetracycline Tetracycline R F Trimethoprim/Sulfamet hoxazole Trimethoprim/Sulfamet hoxazole R F Vancomycin Vancomycin S F Clindamycin Clindamycin S F Aerobic Culture Heavy growth Aerobic Culture Organism: Staphylococcus aureus : O:MRSA Isolated O:STAAUR Isolated Organism: 2.1 Antibiotic Interpretation ADAM Status Ciprofloxacin Ciprofloxacin R F Erythromycin Erythromycin R F Gentamicin Gentamicin S F Levofloxacin Levofloxacin R F Linezolid Linezolid S F Oxacillin Oxacillin R F Penicillin Penicillin R F Rifampin Rifampin S F Tetracycline Tetracycline R F Trimethoprim/Sulfamet hoxazole Trimethoprim/Sulfamet hoxazole R F Vancomycin Vancomycin S F Clindamycin Clindamycin S F Aerobic Culture Aerobic Culture Organism: Staphylococcus aureus : O:MRSA Isolated O:STAAUR Isolated Organism: 2.1 Antibiotic Interpretation ADAM Status Ciprofloxacin Ciprofloxacin R F Erythromycin Erythromycin R F Gentamicin Gentamicin S F Levofloxacin Levofloxacin R F Linezolid Linezolid S F Oxacillin Oxacillin R F Penicillin Penicillin R F Rifampin Rifampin S F Tetracycline Tetracycline R F Trimethoprim/Sulfamet hoxazole Trimethoprim/Sulfamet hoxazole R F Vancomycin Vancomycin S F Clindamycin Clindamycin S F Aerobic Culture Mixed skin estrellita including multiple gram negative rods. Aerobic Culture Organism: Staphylococcus aureus : O:MRSA Isolated O:STAAUR Isolated Organism: 2.1 Antibiotic Interpretation ADAM Status Ciprofloxacin Ciprofloxacin R F Erythromycin Erythromycin R F Gentamicin Gentamicin S F Levofloxacin Levofloxacin R F Linezolid Linezolid S F Oxacillin Oxacillin R F Penicillin Penicillin R F Rifampin Rifampin S F Tetracycline Tetracycline R F Trimethoprim/Sulfamet hoxazole Trimethoprim/Sulfamet hoxazole R F Vancomycin Vancomycin S F Clindamycin Clindamycin S F Aerobic Culture Heavy growth Aerobic Culture Organism: Staphylococcus aureus : O:MRSA Isolated O:STAAUR Isolated Organism: 2.1 Antibiotic Interpretation ADAM Status Ciprofloxacin Ciprofloxacin R F Erythromycin Erythromycin R F Gentamicin Gentamicin S F Levofloxacin Levofloxacin R F Linezolid Linezolid S F Oxacillin Oxacillin R F Penicillin Penicillin R F Rifampin Rifampin S F Tetracycline Tetracycline R F Trimethoprim/Sulfamet hoxazole Trimethoprim/Sulfamet hoxazole R F Vancomycin Vancomycin S F Clindamycin Clindamycin S F Aerobic Culture Methicillin Resis Staph Aureus Aerobic Culture Organism: Staphylococcus aureus : O:MRSA Isolated O:STAAUR Isolated Organism: 2.1 Antibiotic Interpretation ADAM Status Ciprofloxacin Ciprofloxacin R F Erythromycin Erythromycin R F Gentamicin Gentamicin S F Levofloxacin Levofloxacin R F Linezolid Linezolid S F Oxacillin Oxacillin R F Penicillin Penicillin R F Rifampin Rifampin S F Tetracycline Tetracycline R F Trimethoprim/Sulfamet hoxazole Trimethoprim/Sulfamet hoxazole R F Vancomycin Vancomycin S F Clindamycin Clindamycin S F Aerobic Culture See Below For Report Aerobic Culture Organism: Staphylococcus aureus : O:MRSA Isolated O:STAAUR Isolated Organism: 2.1 Antibiotic Interpretation ADAM Status Ciprofloxacin Ciprofloxacin R F Erythromycin Erythromycin R F Gentamicin Gentamicin S F Levofloxacin Levofloxacin R F Linezolid Linezolid S F Oxacillin Oxacillin R F Penicillin Penicillin R F Rifampin Rifampin S F Tetracycline Tetracycline R F Trimethoprim/Sulfamet hoxazole Trimethoprim/Sulfamet hoxazole R F Vancomycin Vancomycin S F Clindamycin Clindamycin S F Aerobic Culture See Below For Report Aerobic Culture Organism: Staphylococcus aureus : O:MRSA Isolated O:STAAUR Isolated Organism: 2.1 Antibiotic Interpretation ADAM Status Ciprofloxacin Ciprofloxacin R F Erythromycin Erythromycin R F Gentamicin Gentamicin S F Levofloxacin Levofloxacin R F Linezolid Linezolid S F Oxacillin Oxacillin R F Penicillin Penicillin R F Rifampin Rifampin S F Tetracycline Tetracycline R F Trimethoprim/Sulfamet hoxazole Trimethoprim/Sulfamet hoxazole R F Vancomycin Vancomycin S F Clindamycin Clindamycin S F Aerobic Culture [facility]formed [facility] Aerobic Culture Organism: Staphylococcus aureus : O:MRSA Isolated O:STAAUR Isolated Organism: 2.1 Antibiotic Interpretation ADAM Status Ciprofloxacin Ciprofloxacin R F Erythromycin Erythromycin R F Gentamicin Gentamicin S F Levofloxacin Levofloxacin R F Linezolid Linezolid S F Oxacillin Oxacillin R F Penicillin Penicillin R F Rifampin Rifampin S F Tetracycline Tetracycline R F Trimethoprim/Sulfamet hoxazole Trimethoprim/Sulfamet hoxazole R F Vancomycin Vancomycin S F Clindamycin Clindamycin S F Aerobic Culture [address], [place] [id number] Aerobic Culture Organism: Staphylococcus aureus : O:MRSA Isolated O:STAAUR Isolated Organism: 2.1 Antibiotic Interpretation ADAM Status Ciprofloxacin Ciprofloxacin R F Erythromycin Erythromycin R F Gentamicin Gentamicin S F Levofloxacin Levofloxacin R F Linezolid Linezolid S F Oxacillin Oxacillin R F Penicillin Penicillin R F Rifampin Rifampin S F Tetracycline Tetracycline R F Trimethoprim/Sulfamet hoxazole Trimethoprim/Sulfamet hoxazole R F Vancomycin Vancomycin S F Clindamycin Clindamycin S F Aerobic Culture Interchange Agent: Norma Snyder PhD, Phone: [phone] Aerobic Culture Organism: Staphylococcus aureus : O:MRSA Isolated O:STAAUR Isolated Organism: 2.1 Antibiotic Interpretation ADAM Status Ciprofloxacin Ciprofloxacin R F Erythromycin Erythromycin R F Gentamicin Gentamicin S F Levofloxacin Levofloxacin R F Linezolid Linezolid S F Oxacillin Oxacillin R F Penicillin Penicillin R F Rifampin Rifampin S F Tetracycline Tetracycline R F Trimethoprim/Sulfamet hoxazole Trimethoprim/Sulfamet hoxazole R F Vancomycin Vancomycin S F Clindamycin Clindamycin S F Aerobic Culture See Below For Report Aerobic Culture Organism: Staphylococcus aureus : O:MRSA Isolated O:STAAUR Isolated Organism: 2.1 Antibiotic Interpretation ADAM Status Ciprofloxacin Ciprofloxacin R F Erythromycin Erythromycin R F Gentamicin Gentamicin S F Levofloxacin Levofloxacin R F Linezolid Linezolid S F Oxacillin Oxacillin R F Penicillin Penicillin R F Rifampin Rifampin S F Tetracycline Tetracycline R F Trimethoprim/Sulfamet hoxazole Trimethoprim/Sulfamet hoxazole R F Vancomycin Vancomycin S F Clindamycin Clindamycin S F Aerobic Culture See Below For Report Aerobic Culture Organism: Staphylococcus aureus : O:MRSA Isolated O:STAR Isolated Organism: 2.1 Antibiotic Interpretation ADAM Status Ciprofloxacin Ciprofloxacin R F Erythromycin Erythromycin R F Gentamicin Gentamicin S F Levofloxacin Levofloxacin R F Linezolid Linezolid S F Oxacillin Oxacillin R F Penicillin Penicillin R F Rifampin Rifampin S F Tetracycline Tetracycline R F Trimethoprim/Sulfamet hoxazole Trimethoprim/Sulfamet hoxazole R F Vancomycin Vancomycin S F Clindamycin Clindamycin S F Aerobic Culture See Below For Report Aerobic Culture Organism: Staphylococcus aureus : O:MRSA [facility]olated O[facility] Isolated Organism: 2.1 Antibiotic Interpretation ADAM Status Ciprofloxacin Ciprofloxacin R F Erythromycin Erythromycin R F Gentamicin Gentamicin S F Levofloxacin Levofloxacin R F Linezolid Linezolid S F Oxacillin Oxacillin R F Penicillin Penicillin R F Rifampin Rifampin S F Tetracycline Tetracycline R F Trimethoprim/Sulfamet hoxazole Trimethoprim/Sulfamet hoxazole R F Vancomycin Vancomycin S F Clindamycin Clindamycin S F Aerobic Culture See Below For Report Aerobic Culture Organism: Staphylococcus aureus : O:MRSA Isolated O:[facility] Isolated Organism: 2.1 Antibiotic Interpretation ADAM Status Ciprofloxacin Ciprofloxacin R F Erythromycin Erythromycin R F Gentamicin Gentamicin S F Levofloxacin Levofloxacin R F Linezolid Linezolid S F Oxacillin Oxacillin R F Penicillin Penicillin R F Rifampin Rifampin S F Tetracycline Tetracycline R F Trimethoprim/Sulfamet hoxazole Trimethoprim/Sulfamet hoxazole R F Vancomycin Vancomycin S F Clindamycin Clindamycin S F Aerobic Culture See Below For Report Aerobic Culture Organism: Staphylococcus aureus : O:MRSA Isolated O:STAR Isolated Organism: 2.1 Antibiotic Interpretation ADAM Status Ciprofloxacin Ciprofloxacin R F Erythromycin Erythromycin R F Gentamicin Gentamicin S F Levofloxacin Levofloxacin R F Linezolid Linezolid S F Oxacillin Oxacillin R F Penicillin Penicillin R F Rifampin Rifampin S F Tetracycline Tetracycline R F Trimethoprim/Sulfamet hoxazole Trimethoprim/Sulfamet hoxazole R F Vancomycin Vancomycin S F Clindamycin Clindamycin S F Aerobic Culture See Below For Report Aerobic Culture Organism: Staphylococcus aureus : O:MRSA Isolated O:STAR Isolated Organism: 2.1 Antibiotic Interpretation ADAM Status Ciprofloxacin Ciprofloxacin R F Erythromycin Erythromycin R F Gentamicin Gentamicin S F Levofloxacin Levofloxacin R F Linezolid Linezolid S F Oxacillin Oxacillin R F Penicillin Penicillin R F Rifampin Rifampin S F Tetracycline Tetracycline R F Trimethoprim/Sulfamet hoxazole Trimethoprim/Sulfamet hoxazole R F Vancomycin Vancomycin S F Clindamycin Clindamycin S F Aerobic Culture See Below For Report Aerobic Culture Organism: Staphylococcus aureus : O:MRSA Isolated O:[facility] Isolated Organism: 2.1 Antibiotic Interpretation ADAM Status Ciprofloxacin Ciprofloxacin R F Erythromycin Erythromycin R F Gentamicin Gentamicin S F Levofloxacin Levofloxacin R F Linezolid Linezolid S F Oxacillin Oxacillin R F Penicillin Penicillin R F Rifampin Rifampin S F Tetracycline Tetracycline R F Trimethoprim/Sulfamet hoxazole Trimethoprim/Sulfamet hoxazole R F Vancomycin Vancomycin S F Clindamycin Clindamycin S F Aerobic Culture See Below For Report Aerobic Culture Organism: Staphylococcus aureus : O:MRSA Isolated O:[facility] Isolated Organism: 2.1 Antibiotic Interpretation ADAM Status Ciprofloxacin Ciprofloxacin R F Erythromycin Erythromycin R F Gentamicin Gentamicin S F Levofloxacin Levofloxacin R F Linezolid Linezolid S F Oxacillin Oxacillin R F Penicillin Penicillin R F Rifampin Rifampin S F Tetracycline Tetracycline R F Trimethoprim/Sulfamet hoxazole Trimethoprim/Sulfamet hoxazole R F Vancomycin Vancomycin S F Clindamycin Clindamycin S F Aerobic Culture See Below For Report Aerobic Culture Organism: Staphylococcus aureus : O:MRSA Isolated O:[facility] Isolated Organism: 2.1 Antibiotic Interpretation ADAM Status Ciprofloxacin Ciprofloxacin R F Erythromycin Erythromycin R F Gentamicin Gentamicin S F Levofloxacin Levofloxacin R F Linezolid Linezolid S F Oxacillin Oxacillin R F Penicillin Penicillin R F Rifampin Rifampin S F Tetracycline Tetracycline R F Trimethoprim/Sulfamet hoxazole Trimethoprim/Sulfamet hoxazole R F Vancomycin Vancomycin S F Clindamycin Clindamycin S F Aerobic Culture See Below For Report Aerobic Culture Organism: Staphylococcus aureus : O:MRSA Isolated O:[facility] Isolated Organism: 2.1 Antibiotic Interpretation ADAM Status Ciprofloxacin Ciprofloxacin R F Erythromycin Erythromycin R F Gentamicin Gentamicin S F Levofloxacin Levofloxacin R F Linezolid Linezolid S F Oxacillin Oxacillin R F Penicillin Penicillin R F Rifampin Rifampin S F Tetracycline Tetracycline R F Trimethoprim/Sulfamet hoxazole Trimethoprim/Sulfamet hoxazole R F Vancomycin Vancomycin S F Clindamycin Clindamycin S F Aerobic Culture See Below For Report Aerobic Culture Organism: Staphylococcus aureus : O:MRSA Isolated O:STAAUR Isolated Organism: 2.1 Antibiotic Interpretation ADAM Status Ciprofloxacin Ciprofloxacin R F Erythromycin Erythromycin R F Gentamicin Gentamicin S F Levofloxacin Levofloxacin R F Linezolid Linezolid S F Oxacillin Oxacillin R F Penicillin Penicillin R F Rifampin Rifampin S F Tetracycline Tetracycline R F Trimethoprim/Sulfamet hoxazole Trimethoprim/Sulfamet hoxazole R F Vancomycin Vancomycin S F Clindamycin Clindamycin S F Aerobic Culture See Below For Report Aerobic Culture Organism: Staphylococcus aureus : O:MRSA Isolated O:STAAUR Isolated Organism: 2.1 Antibiotic Interpretation ADAM Status Ciprofloxacin Ciprofloxacin R F Erythromycin Erythromycin R F Gentamicin Gentamicin S F Levofloxacin Levofloxacin R F Linezolid Linezolid S F Oxacillin Oxacillin R F Penicillin Penicillin R F Rifampin Rifampin S F Tetracycline Tetracycline R F Trimethoprim/Sulfamet hoxazole Trimethoprim/Sulfamet hoxazole R F Vancomycin Vancomycin S F Clindamycin Clindamycin S F Aerobic Culture See Below For Report Aerobic Culture Organism: Staphylococcus aureus : O:MRSA Isolated O:STAAUR Isolated Organism: 2.1 Antibiotic Interpretation ADAM Status Ciprofloxacin Ciprofloxacin R F Erythromycin Erythromycin R F Gentamicin Gentamicin S F Levofloxacin Levofloxacin R F Linezolid Linezolid S F Oxacillin Oxacillin R F Penicillin Penicillin R F Rifampin Rifampin S F Tetracycline Tetracycline R F Trimethoprim/Sulfamet hoxazole Trimethoprim/Sulfamet hoxazole R F Vancomycin Vancomycin S F Clindamycin Clindamycin S F Performing Lab: see note LC - [facility] LB SEE REPORT - Project Admin Id information not found for OBX-specific creative services producer legend CBC AUTO DIFF Reviewed date:06/17/2025 02:23:52 PM Interpretation: Performing Lab: Notes/Report: [facility] , White Blood Count 8.3 4.0-11.0 10 3/uL Red Blood Count 5.19 4.70-6.10 10 6/uL Hemoglobin 14.8 14.0-18.0 g/dL Hematocrit 46.1 42.0-54.0 % Mean Corpuscular Volume 88.8 80.0-94.0 fL Mean Corpuscular Hemoglobin 28.5 25.9-34.0 pg Mean Corpuscular HGB Conc 32.1 29.9-35.2 g/dL Red Cell Distribution Width 13.8 11.0-15.0 % Platelet Count 191 150-450 10 3/uL Mean Platelet Volume 10.2 9.5-13.5 fL Neutrophils Percent Auto 79.0 43.0-75.0 % Lymphocytes Percent Auto 10.3 20.5-60.0 % Monocytes Percent Auto 7.3 1.7-12.0 % Eosinophils Percent Auto 2.3 0.9-7.0 % Basophils Percent Auto 0.6 0.2-2.0 % Immature Granulocytes Pct Auto 0.5 0.0-0.5 % Neutrophils Absolute Auto 6.5 1.4-6.5 10 3/uL Lymphocytes Absolute Auto 0.9 1.2-3.8 10 3/uL Monocytes Absolute Auto 0.6 0.3-0.8 10 3/uL Eosinophils Absolute Auto 0.2 0.0-0.7 10 3/uL Basophils Absolute Auto 0.1 0.0-0.1 10 3/uL Immature Granulocytes Abs Auto 0.04 0.00-0.03 10 3/uL Performing Lab: see note ML - [facility] LB CRP Reviewed date:06/17/2025 02:23:52 PM Interpretation: Performing Lab: Notes/Report: [facility] , C Reactive Protein 2.92 <=0.50 mg/dL Performing Lab: see note - [facility] LB PROF CHEM 8 (BAS METB) Reviewed date:06/17/2025 02:23:52 PM Interpretation: Performing Lab: Notes/Report: [facility] , Sodium 139 136-145 mmol/L Potassium 3.8 3.5-5.1 mmol/L Chloride 101 98-107 mmol/L Carbon Dioxide 29.1 21.0-32.0 mmol/L Anion Gap 12.7 Glucose 100 74-106 mg/dL Blood Urea Nitrogen 7.0 7.0-18.0 mg/dL Creatinine 0.81 0.70-1.30 mg/dL Estimated GFR ( Elizabeth >60 >=60 mL/min/1.73m 2 Estimated GFR (Non- Gwen >60 >=60 mL/min/1.73m 2 BUN Creatinine Ratio 8.6 Calcium 8.5 8.5-10.1 mg/dL Performing Lab: see note ML - [facility] LB Erythrocyte Sedimentation Ra te Reviewed date:06/17/2025 02:23:52 PM Interpretation: Performing Lab: Notes/Report: [facility] , Erythrocyte Sedimentation Rate 88 <=20 mm/hr Performing Lab: see note ML - [facility] LB CBC AUTO DIFF Reviewed date:06/18/2025 12:55:01 PM Interpretation: Performing Lab: Notes/Report: [facility] , White Blood Count 7.7 4.0-11.0 10 3/uL Red Blood Count 5.09 4.70-6.10 10 6/uL Hemoglobin 14.2 14.0-18.0 g/dL Hematocrit 44.8 42.0-54.0 % Mean Corpuscular Volume 88.0 80.0-94.0 fL Mean Corpuscular Hemoglobin 27.9 25.9-34.0 pg Mean Corpuscular HGB Conc 31.7 29.9-35.2 g/dL Red Cell Distribution Width 13.7 11.0-15.0 % Platelet Count 193 150-450 10 3/uL Mean Platelet Volume 9.9 9.5-13.5 fL Neutrophils Percent Auto 74.9 43.0-75.0 % Lymphocytes Percent Auto 12.6 20.5-60.0 % Monocytes Percent Auto 8.6 1.7-12.0 % Eosinophils Percent Auto 2.5 0.9-7.0 % Basophils Percent Auto 0.8 0.2-2.0 % Immature Granulocytes Pct Auto 0.6 0.0-0.5 % Neutrophils Absolute Auto 5.8 1.4-6.5 10 3/uL Lymphocytes Absolute Auto 1.0 1.2-3.8 10 3/uL Monocytes Absolute Auto 0.7 0.3-0.8 10 3/uL Eosinophils Absolute Auto 0.2 0.0-0.7 10 3/uL Basophils Absolute Auto 0.1 0.0-0.1 10 3/uL Immature Granulocytes Abs Auto 0.05 0.00-0.03 10 3/uL Performing Lab: see note ML - [facility] LB CRP Reviewed date:06/18/2025 12:55:01 PM Interpretation: Performing Lab: Notes/Report: [facility] , C Reactive Protein 1.51 <=0.50 mg/dL Performing Lab: see note ML - [facility] LB PROF CHEM 8 (BAS METB) Reviewed date:06/18/2025 12:55:01 PM Interpretation: Performing Lab: Notes/Report: [facility] , Sodium 139 136-145 mmol/L Potassium 3.9 3.5-5.1 mmol/L Chloride 102 98-107 mmol/L Carbon Dioxide 30.4 21.0-32.0 mmol/L Anion Gap 10.5 Glucose 82 74-106 mg/dL Blood Urea Nitrogen 8.0 7.0-18.0 mg/dL Creatinine 1.01 0.70-1.30 mg/dL Estimated GFR ( Elizabeth >60 >=60 mL/min/1.73m 2 Estimated GFR (Non- Gwen >60 >=60 mL/min/1.73m 2 BUN Creatinine Ratio 7.9 Calcium 8.7 8.5-10.1 mg/dL Performing Lab: see note ML - [facility] VANCOMYCIN TROUGH Reviewed date:06/18/2025 12:55:01 PM Interpretation: Performing Lab: Notes/Report: [facility] , Vancomycin Trough 14.9 5.0-20.0 ug/mL Performing Lab: see note ML - [facility] LB Erythrocyte Sedimentation Ra te Reviewed date:06/18/2025 12:55:01 PM Interpretation: Performing Lab: Notes/Report: [facility] , Erythrocyte Sedimentation Rate 71 <=20 mm/hr Performing Lab: see note ML - [facility] LB XR FOREIGN BODY EYE Reviewed date:06/18/2025 02:32:50 PM Interpretation: Performing Lab: Notes/Report: Source Facility: [facility]-[address] [place] [address] [place] [address] XRay Report Signed Patient: MATTY GARCES MR#: [id number] : 1970 Acct:[id number] Age/Sex: 54 / M ADM Date: 06/16/25 Loc: [place] 201-[address]: Bonnie Tobar M.D. Ordering Physician: Bonnie Tobar M.D. Date of Service: 06/18/25 Procedure(s): XR foreign body eye UBALDO Accession Number(s): [id number] cc: Venus Mendez M.D.; Bonnie Tobar M.D. [place] [id number] Patient Name: MATTY GARCES MRN: [id number] date: 1970 Sex: M Assigned Patient Location: MS Current Patient Location: [place] Accession/Order Number: [id number] Exam Date: 06/18/2025 13:15 Report Date: 06/18/2025 13:22 At the request of: BONNIE TOBAR MD Procedure: XR foreign body eye UBALDO Orbits 2 views. Reason for exam: Pre-MRI. FINDINGS: No radiopaque foreign body. No bony destruction. XR/XR foreign body eye UBALDO IMPRESSION: No radio opaque foreign body. Impression dictated by: Bora Gomez Jr., D.O. 06/18/2025 1:22 PM Dictation Location: [place] [address] Electronically authenticated by: [id number] Y Date: 06/18/2025 13:22 Dictated By: Bora Gomez M.D. Signed By: 06/18/25 1325 DD/ 132 TD/TT: Stick Puller: MR castañeda wo con Reviewed date:06/19/2025 06:54:26 PM Interpretation: Performing Lab: Notes/Report: Source Facility: [place] [address] Magnetic Resonance Report Signed Patient: MATTY GARCES MR#: [id number] : 1970 Acct:[id number] Age/Sex: 54 / M ADM Date: 06/16/25 Loc: MS 201-[address]: Bonnie Tobar M.D. Ordering Physician: Bonnie Tobar M.D. Date of Service: 06/18/25 Procedure(s): MR castañeda wo con Accession Number(s): [id number] cc: Venus Mendez M.D.; Bonnie Tobar M.D. The [address] [address] Patient Name: MATTY GARCES MRN: [facility]:[id number] date: 1970 Sex: M Assigned Patient Location: MS Current Patient Location: MS Accession/Order Number: [id number] Exam Date: 06/18/2025 13:30 Report Date: 06/18/2025 19:34 At the request of: BONNIE TOBAR MD Procedure: MR foot LT wo con MR foot LT wo con 06/18/2025 2:35 PM SIGNS AND SYMPTOMS: Infected foot ulcer along the plantar aspect of the first toe r/o abscess or osteomyelitis PROTOCOL: Multiplanar multisequence MR images of the left foot without contrast COMPARISON: 06/16/2025. FINDINGS: Lisfranc ligament: Intact. Hallux: Osseous: There is marrow edema along the plantar aspect of the proximal phalanx of the great toe greatest along the plantar surface distally adjacent to the interphalangeal joint suspicious for osteomyelitis. Extensor tendon: Normal. Flexor tendon: Normal. First metatarsophalangeal joint: Moderate degenerative changes are noted. Hallux-sesamoid complex: Normal. Second ray: Osseous: Normal. Extensor tendon: Normal. Flexor tendon: Normal. Second metatarsophalangeal joint: Intact. Plantar plate: Normal. Third ray: Osseous: Normal. Extensor tendon: Normal. Flexor tendon: Normal. Third metatarsophalangeal joint: Intact. Plantar plate: Normal. Fourth ray: Osseous: Normal. Extensor tendon: Normal. Flexor tendon: Normal. Fourth metatarsophalangeal joint: Intact. Plantar plate: Normal. Fifth ray: Osseous: Normal. Extensor tendon: Normal. Flexor tendon: Normal. Fifth metatarsophalangeal joint: Intact. Plantar plate: Normal. Interspaces: Interdigital (Hu) neuroma: None. Intermetatarsal bursitis: None. Soft tissues: There is soft tissue ulceration along the base of the great toe beneath the interphalangeal joints with diffuse soft tissue swelling of the great toe consistent with cellulitis. Muscles: Normal. Bones: Achilles surface calcaneal spurring is noted. Nerves: Normal. Blood vessels: Normal. MR/MR foot LT wo con IMPRESSION: There is soft tissue ulceration along the base of the great toe beneath the interphalangeal joint. There is accompanying soft tissue swelling consistent with cellulitis. Marrow edema is noted along the plantar surface of the proximal phalanx of the great toe adjacent to the interphalangeal joint consistent with osteomyelitis. Impression dictated by: Francis Irving M.D. 06/18/2025 7:34 PM Dictation Location: [place] [address] Electronically authenticated by: [id number] Y Date: 06/18/2025 19:34 Dictated By: Francis Irving M.D. Signed By: 06/18/251936 DD/ 33 TD/TT: Stick Puller: PROF KYLE Roe ([facility]) Reviewed date:06/19/2025 06:54:26 PM Interpretation: Performing Lab: Notes/Report: [facility] , Sodium 141 136-145 mmol/L Potassium 3.9 3.5-5.1 mmol/L Chloride 103 98-107 mmol/L Carbon Dioxide 30.7 21.0-32.0 mmol/L Anion Gap 11.2 Glucose 139 74-106 mg/dL Blood Urea Nitrogen 10.0 7.0-18.0 mg/dL Creatinine 0.88 0.70-1.30 mg/dL Estimated GFR ( Elizabeth >60 >=60 mL/min/1.73m 2 Estimated GFR (Non- Gwen >60 >=60 mL/min/1.73m 2 BUN Creatinine Ratio 11.4 Calcium 9.3 8.5-10.1 mg/dL Performing Lab: see note ML - [facility] LB AFB Specimen Processing Reviewed date:06/21/2025 12:47:02 PM Interpretation: Performing Lab: Notes/Report: 1ST LEFT METATASAL CX [facility] , AFB Specimen Processing See Below For Report AFB Specimen Processing AFB Specimen Processing Tissue Grinding AFB Specimen Processing Performing Lab: see note LC - [facility] LB Acid Fast Smear Reviewed date:06/21/2025 12:47:02 PM Interpretation: Performing Lab: Notes/Report: 1ST LEFT METATASAL CX [facility] , Acid Fast Smear See Below For Report Acid Fast Smear Negative Performing Lab: see note LC - [facility] LB Acid Fast Culture Reviewed date:06/21/2025 12:47:02 PM Interpretation: Performing Lab: Notes/Report: 1ST LEFT METATASAL CX [facility] , Acid Fast Culture See Below For Report Acid Fast Culture Specimen has been received and testing has been initiated. Acid Fast Culture Performed at: [facility] Acid Fast Culture Specimen has been received and testing has been initiated. Acid Fast Culture [address] [place], [place] [id number] Acid Fast Culture Specimen has been received and testing has been initiated. Acid Fast Culture Interchange Agent: Norma Snyedr PhD, Phone: [phone] Acid Fast Culture Specimen has been received and testing has been initiated. Performing Lab: see note - [facility] LB SEE REPORT - Project Admin Id information not found for OBX-specific creative services producer legend Fungus Stain Reviewed date:06/26/2025 02:19:36 PM Interpretation: Performing Lab: Notes/Report: 1ST LEFT METATASAL CX [facility] , Fungus Stain See Below For Report Fungus Stain Fungus Stain RAYMUNDO/Calcofluor preparation: no fungus observed. Fungus Stain Performing Lab: see note [facility] Fungus (Mycology) Culture Reviewed date:06/21/2025 06:12:36 PM Interpretation: Performing Lab: Notes/Report: 1ST LEFT METATASAL CX [facility] , Fungus (Mycology) Culture See Below For Report Fungus (Mycology) Culture Fungus (Mycology) Culture Culture Report: Fungus (Mycology) Culture Fungus (Mycology) Culture The specimen submitted for fungus culture has been received and Fungus (Mycology) Culture Fungus (Mycology) Culture culture has be en initiated. Fungus (Mycology) Culture Fungus (Mycology) Culture Performed at: [facility] Fungus (Mycology) Culture Fungus (Mycology) Culture [address] [place], [place] [id number] Fungus (Mycology) Culture Fungus (Mycology) Culture Interchange Agent: Arthur Snyder PhD, Phone: [phone] Fungus (Mycology) Culture Performing Lab: see note - [facility] LB SEE REPORT - Project Admin Id information not found for OBX-specific creative services producer legend Gram Stain Result Reviewed date:06/22/2025 12:04:05 PM Interpretation: Performing Lab: Notes/Report: 1ST LEFT METATASAL CX [facility] , Gram Stain Result See Below For Report Gram Stain Result Gram Stain Result No white blood cells seen. Gram Stain Result Gram Stain Result Gram Stain Result Gram Stain Result No organisms seen Gram Stain Result Gram Stain Result Performed at: [facility] Gram Stain Result Gram Stain Result [address] [place], [place] [id number] Gram Stain Result Gram Stain Result Interchange Agent: Norma Snyder PhD, Phone: [phone] Gram Stain Result Gram Stain Result * Gram Stain Result Gram Stain Result * This is a correcte d result. * Gram Stain Result Gram Stain Result * Gram Stain Result Gram Stain Result A prior result that was reported as final has been changed. Gram Stain Result Performing Lab: see note [facility] LB SEE REPORT - Project Admin Id information not found for OBX-specific creative services producer legend Anaerobic Cult, Extended Inc ub Reviewed date:06/25/2025 06:32:51 PM Interpretation: Performing Lab: Notes/Report: 1ST LEFT METATASAL CX [facility] , Anaerobic Cult, Extended Incub See Below For Report Anaerobic Cult, Extended Incub Anaerobic Cult, Extended Incub No aerobic or anaerobic growth in 72 hours. Anaerobic Cult, Extended Incub Performing Lab: see note [facility] LB Tissue Culture Reviewed date:06/25/2025 12:43:42 PM Interpretation: Performing Lab: Notes/Report: 1ST LEFT METATASAL CX [facility] , Tissue Culture See Below For Report Tissue Culture Tissue Culture No growth after 18-2 4 hours. Tissue Culture Tissue Culture Tissue Culture Tissue Culture No growth in 36 - 48 hours. Tissue Culture Tissue Culture Tissue Culture Tissue Culture No growth in 56 - 72 hours. Tissue Culture Tissue Culture Performed at: [facility] Tissue Culture Tissue Culture [address] [place], [place] [id number] Tissue Culture Tissue Culture Interchange Agent: Norma Snyder PhD, Phone: [phone] Tissue Culture Performing Lab: see note [facility] LB SEE REPORT - Project Admin Id information not found for OBX-specific creative services producer legend XR foot LT min 3V Reviewed date:06/21/2025 12:47:02 PM Interpretation: Performing Lab: Notes/Report: Source Facility: [place] [address] [address] XRay Report Signed Patient: MATTY GARCES MR#: [id number] : 1970 Acct:[id number] Age/Sex: 54 / M ADM Date: 06/16/25 Loc: MS 201-[address]: Bonnie Tobar M.D. Ordering Physician: Clarisa Vallejo D.P.M. Date of Service: 06/20/25 Procedure(s): XR foot LT min 3V Accession Number(s): [id number] cc: Clarisa Vallejo D.P.M.; Venus Mendez M.D. [address] [address] Patient Name: MATTY GARCES MRN: [id number] date: 1970 Sex: M Assigned Patient Location: [place] Current Patient Location: [place] Accession/Order Number: [id number] Exam Date: 06/20/2025 14:16 Report Date: 06/20/2025 22:20 At the request of: CLARISA VALLEJO DPJose Eduardo Procedure: XR foot LT min 3V Left FOOT - 3 views CLINICAL HISTORY: osteomyelitis left hallux s/p amputation COMPARISON: MRI 06/18/2025 FINDINGS: Postsurgical changes status post amputation of the first digit. There is soft tissue swelling identified at the operative site which could be reactive due to recent surgery. Remaining osseous structures are otherwise unremarkable. Postsurgical changes distal tibia/fibula. XR/XR foot LT min 3V IMPRESSION: Interval amputation of the first digit.. Soft tissue swelling identified at the operative site consistent with surgery.. Impression dictated by: Venkat Rodas M.D. 06/20/2025 10:20 PM Dictation Location: [place] [address] Electronically authenticated by: [id number] Y Date: 06/20/2025 22:20 Dictated By: Venkat Rodas M.D. Signed By: 06/20/252222 DD/ 19 TD/TT: Stick Puller: Tissue Culture Reviewed date:06/25/2025 06:32:51 PM Interpretation: Performing Lab: Notes/Report: 1ST LEFT METATASAL CX [facility] , Tissue Culture See Below For Report Tissue Culture Tissue Culture No growth after 18-2 4 hours. Tissue Culture Tissue Culture Tissue Culture Tissue Culture No growth in 36 - 48 hours. Tissue Culture Tissue Culture Tissue Culture Tissue Culture No growth in 56 - 72 hours. Tissue Culture Tissue Culture Performed at: [facility] Tissue Culture Tissue Culture [address], [place] [id number] Tissue Culture Tissue Culture Interchange Agent: Norma Snyder PhD, Phone: [phone] Tissue Culture Performing Lab: see note - [facility] LB SEE REPORT - Project Admin Id information not found for OBX-specific creative services producer legend Fungus (Mycology) Culture Reviewed date:06/26/2025 02:19:36 PM Interpretation: Performing Lab: Notes/Report: 1ST LEFT METATASAL CX [facility] , Fungus (Mycology) Culture See Below For Report Fungus (Mycology) Culture Fungus (Mycology) Culture Culture Report: Fungus (Mycology) Culture Fungus (Mycology) Culture The specimen submitted for fungus culture has been received and Fungus (Mycology) Culture Fungus (Mycology) Culture culture has be en initiated. Fungus (Mycology) Culture Fungus (Mycology) Culture Performed at: [facility] Fungus (Mycology) Culture Fungus (Mycology) Culture [address] [place], [place] [id number] Fungus (Mycology) Culture Fungus (Mycology) Culture Interchange Agent: Arthur Snyder PhD, Phone: [phone] Fungus (Mycology) Culture Performing Lab: see note - [facility] LB SEE REPORT - Project Admin Id information not found for OBX-specific creative services producer legend PROF CHEM 8 (BAS METB) Reviewed date:06/21/2025 12:47:02 PM Interpretation: Performing Lab: Notes/Report: [facility] , Sodium 140 136-145 mmol/L Potassium 3.9 3.5-5.1 mmol/L Chloride 103 98-107 mmol/L Carbon Dioxide 29.5 21.0-32.0 mmol/L Anion Gap 11.4 Glucose 105 74-106 mg/dL Blood Urea Nitrogen 15.0 7.0-18.0 mg/dL Creatinine 0.83 0.70-1.30 mg/dL Estimated GFR ( Elizabeth >60 >=60 mL/min/1.73m 2 Estimated GFR (Non- Gwen >60 >=60 mL/min/1.73m 2 BUN Creatinine Ratio 18.1 Calcium 9.1 8.5-10.1 mg/dL Performing Lab: see note ML - [facility] LB CBC no Diff (Hemogram) Reviewed date:06/21/2025 12:47:02 PM Interpretation: Performing Lab: Notes/Report: [facility] , White Blood Count 7.8 4.0-11.0 10 3/uL Red Blood Count 5.29 4.70-6.10 10 6/uL Hemoglobin 14.6 14.0-18.0 g/dL Hematocrit 46.7 42.0-54.0 % Mean Corpuscular Volume 88.3 80.0-94.0 fL Mean Corpuscular Hemoglobin 27.6 25.9-34.0 pg Mean Corpuscular HGB Conc 31.3 29.9-35.2 g/dL Red Cell Distribution Width 13.4 11.0-15.0 % Platelet Count 203 150-450 10 3/uL Mean Platelet Volume 9.7 9.5-13.5 fL Performing Lab: see note ML - [facility] LB GLYCOHEMOGLOBIN A1C Reviewed date:06/18/2025 12:55:01 PM Interpretation: Performing Lab: Notes/Report: Comment Add to an already drawn sample [facility] , Glycohemoglobin A1C 5.8 4.5-6.2 % ADA RECOMMENDED LIMIT 4.0 - 6.0 ADA THERAPEUTIC TARGET < 7.0 ACTION SUGGESTED > 7.0 Estimated Average Glucose 120 Performing Lab: see note ML - [facility] LB LACTATE or LACTIC ACID Reviewed date:06/16/2025 01:01:31 PM Interpretation: Performing Lab: Notes/Report: [facility] , Lactate/Lactic Acid 1.8 0.4-2.0 mmol/L Performing Lab: see note ML - [facility] LB CRP Reviewed date:06/16/2025 01:01:31 PM Interpretation: Performing Lab: Notes/Report: [facility] , C Reactive Protein 2.79 <=0.50 mg/dL Performing Lab: see note ML - [facility] LB XR tibia fibula RT 2V Reviewed date:09/24/2024 10:37:52 AM Interpretation: Performing Lab: Notes/Report: Source Facility: [place] [address] XRay Report Signed Patient: MATTY GARCES MR#: [id number] : 1970 Acct:[id number] Age/Sex: 53 / M ADM Date: 09/23/24 Loc: ER Attending Dr: Ordering Physician: Crow Glass Date of Service: 09/23/24 Procedure(s): XR tibia fibula RT 2V Accession Number(s): [id number] cc: Venus Mendez M.D.; Crow Glass [place] [address] Patient Name: MATTY GARCES MRN: [id number] date: 1970 Sex: M Assigned Patient Location: ER Current Patient Location: ED.MAIN Accession/Order Number: [id number] Exam Date: 09/23/2024 06:48 Report Date: 09/23/2024 [...] Dictated By: Michael Casanova M.D. Signed By: 09/23/24724 DD/ 1 TD/TT: Stick Puller: XR tibia fibula RT 2V Reviewed date:09/24/2024 10:37:52 AM Interpretation: Performing Lab: Notes/Report: Source Facility: [place] [address] [place] [address] XRay Report Signed Patient: MATTY GARCES MR#: [id number] : 1970 Acct:[id number] Age/Sex: 53 / M ADM Date: 09/23/24 Loc: ER Attending Dr: Ordering Physician: Crow Glass Date of Service: 09/23/24 Procedure(s): XR tibia fibula RT 2V Accession Number(s): [id number] cc: Venus Mendez M.D.; Crow Glass [address] [address] Patient Name: MATTY GARCES MRN: [id number] date: 1970 Sex: M Assigned Patient Location: ER Current Patient Location: ER Accession/Order Number: [id number] Exam Date: 09/23/2024 05:40 Report Date: 09/23/2024 [...] Davis M.D. Signed By: 09/23/2438 DD/ TD/TT: Stick Puller: XR chest 1V Reviewed date:09/24/2024 10:37:52 AM Interpretation: Performing Lab: Notes/Report: Source Facility: [place] [address] XRay Report Signed Patient: MATTY GARCES MR#: [id number] : 1970 Acct:[id number] Age/Sex: 53 / M ADM Date: 09/23/24 Loc: ER Attending Dr: Ordering Physician: Crow Glass Date of Service: 09/23/24 Procedure(s): XR chest 1V Accession Number(s): [id number] cc: Venus Mendez M.D.; Crow Glass [place] [address] Patient Name: MATTY GARCES MRN: [id number] date: 1970 Sex: M Assigned Patient Location: ER Current Patient Location: ER Accession/Order Number: [id number] Exam Date: 09/23/2024 05:40 Report Date: 09/23/2024 [...] By: Shy Davis M.D. Signed By: 09/23/24 0638 DD/ TD/TT: Stick Puller: ECG 12 lead Reviewed date:09/25/2024 08:20:56 PM Interpretation: Performing Lab: Notes/Report: Source Facility: [place] [address] [place] [address] Electrocardiograph Report Signed Patient: MATTY GARCES MR#: [id number] : 1970 Acct:[id number] Age/Sex: 53 / M ADM Date: 09/23/24 Loc: ER Attending Dr: Ordering Physician: Crow Glass Date of Service: 09/23/24 Procedure(s): ECG 12 lead Accession Number(s): [id number] cc: [facility] Test Date: 2024-09-23 Pat Name: MATTY GARCES Department: Room: - Gender: Male Coding Validator: : 1970 Requested By: VENUS MENDEZ Order Number: [id number] Reading MD: VENUS MENDEZ Measurements Intervals [place] Rate: 72 P: 43 SD: 184 QRS: 53 QRSD: 94 T: 23 QT: 406 QTc: 429 Interpretive Statements 1100 Sinus rhythm 4068 Nonspecific Twave abnormality 9130 borderline ECG Compared to ECG 09/20/2024 13:05:52 ST (T wave) deviation no longer present Electronically Signed On 09-25-2024 8:09:26 EST by VENUS MENDEZ Dictated By: Venus Mendez M.D. Signed By: 09/25/24 0809 DD/ 0551 TD/TT: Stick Puller: JACKY ankle RT min 3V Reviewed date:09/24/2024 10:37:52 AM Interpretation: Performing Lab: Notes/Report: Source Facility: [place] [address] [place] [address] XRay Report Signed Patient: MATTY GARCES MR#: [id number] : 1970 Acct:[id number] Age/Sex: 53 / M ADM Date: 09/23/24 Loc: ER Attending Dr: Ordering Physician: Crow Glass Date of Service: 09/23/24 Procedure(s): XR ankle RT min 3V Accession Number(s): [id number] cc: Venus Mendez M.D.; Crow Glass [place] [address] Patient Name: MATTY GARCES MRN: [facility]:[id number] date: 1970 Sex: M Assigned Patient Location: ER Current Patient Location: ER Accession/Order Number: [id number] Exam Date: 09/23/2024 05:40 Report Date: 09/23/2024 [...] Davis M.D. Signed By: 09/23/2437 DD/ TD/TT: Stick Puller: XR KNEE RT 3V Reviewed date:09/24/2024 10:37:52 AM Interpretation: Performing Lab: Notes/Report: Source Facility: [place] [address] [place] [address] XRay Report Signed Patient: MATTY GARCES MR#: [id number] : 1970 Acct:[id number] Age/Sex: 53 / M ADM Date: 09/23/24 Loc: ER Attending Dr: Ordering Physician: Crow Glass Date of Service: 09/23/24 Procedure(s): XR knee RT 3V Accession Number(s): [id number] cc: Venus Mendez M.D.; Crow Glass [place] [address] Patient Name: MATTY GARCES MRN: [id number] date: 1970 Sex: M Assigned Patient Location: ER Current Patient Location: ER Accession/Order Number: [id number] Exam Date: 09/23/2024 05:40 Report Date: 09/23/2024 [...] Signed By: 09/23/24 0637 DD/ 0635 TD/TT: Stick Puller: Troponin I High Sensitivity Reviewed date:09/24/2024 10:37:52 AM Interpretation: Performing Lab: Notes/Report: [facility] , Troponin I High Sensitivity 10.0 4.0-76.1 pg/m L CUT-OFF POINTS HAVE BEEN ESTABLISHED BASED ON THE FOURTH UNIVERSAL DEFINITION OF MYOCARDIAL INFARCTION. THE UPPER REFERENCE LIMIT (URL) OF TROPONIN, DEFINED THE 99TH PERCENTILE OF cTnI DISTRIBUTION IN A REFERENCE POPULATION, HAS BEEN CONFIRMED THE DECISION THRESHOLD FOR NE DIAGNOSIS. 99TH PERCENTILE = 76.2 PG/ML NOTE: HIGH-SENSITIVITY TROPONIN ASSAY IS NOT INTENDED TO BE USED IN ISOLATION BUT SHOULD BE INTERPRETED IN CONJUNCTION WITH OTHER DIAGNOSTIC AND CLINICAL INFORMATION. Performing Lab: see note ML - [facility] LB Manual Differential Reviewed date:09/24/2024 10:37:52 AM Interpretation: Performing Lab: Notes/Report: [facility] , Segmented Neutrophils % Manual 76.0 43.0-75.0 Lymphocytes Percent Manual 11.0 20.5-60.0 % Monocytes Percent Manual 9.0 1.7-12.0 % Eosinophils Percent Manual 3.0 0.9-7.0 % Basophils Percent Manual 1.0 0.2-2.0 % Segmented Neut Absolute Manual 5.39 1.4-6.5 10 3/uL Lymphocytes Absolute Manual 0.78 1.20 -3.80 10 3/uL Monocytes Absolute Manual 0.63 0.30-0 .80 10 3/uL Eosinophils Absolute Manual 0.21 0.00 -0.70 10 3/uL Basophils Abs Manual 0.07 0.00-0.10 1 0 3/uL Performing Lab: see note ML - [facility] Prothrombin Time INR Reviewed date:09/24/2024 10:37:52 AM Interpretation: Performing Lab: Notes/Report: [facility] , Prothrombin Time 12.9 9.0-11.6 sec INR 1.24 DESIRED INR: 2.0-3.0 CONDITIONS NOT LISTED BELOW 2.5-3.5 FOR PROSTHETIC HEART VALVE REPLACEMENT 2.5-3.5 RECURRENT THROMBOSIS Performing Lab: see note ML - [facility] LB PTT Reviewed date:09/24/2024 10:37:52 AM Interpretation: Performing Lab: Notes/Report: [facility] , Partial Thromboplastin Time 28.7 22.3-36.2 sec Performing Lab: see note ML - [facility] LB PROF CHEM 8 (BAS METB) Reviewed date:09/24/2024 10:37:52 AM Interpretation: Performing Lab: Notes/Report: [facility] , Sodium 142 136-145 mmol/L Potassium [...] 9.0 8.5-10.1 mg/dL Performing Lab: see note - [facility] LB CBC AUTO DIFF Reviewed date:09/24/2024 10:37:52 AM Interpretation: Performing Lab: Notes/Report: [facility] , White Blood Count 7.1 4.0-11.0 [...] 9.6 9.5-13.5 fL Performing Lab: see note - [facility] LB CT soft tissue neck w con Reviewed date:09/20/2024 07:18:09 PM Interpretation: Performing Lab: Notes/Report: Source Facility: [place] [address] CT Scan Report Signed Patient: MATTY GARCES MR#: [id number] : 1970 Acct:[id number] Age/Sex: 53 / M ADM Date: 09/19/24 Loc: ICU 270-[address]: Venus Mendez M.D. Ordering Physician: eVnus Mendez M.D. Date of Service: 09/20/24 Procedure(s): CT soft tissue neck w con Accession Number(s): [id number] cc: Venus Mendez M.D. [place] [address] Patient Name: MATTY GARCES MRN: [id number] date: 1970 Sex: M Assigned Patient Location: ICU Current Patient Location: ICU Accession/Order Number: [id number] Exam Date: 09/20/2024 13:15 Report Date: 09/20/2024 [...] clear. Masseters are clear. Skull base intact. Chocolate Dipper spaces are normal. The parotid glands are [...] Signed By: 09/20/24 1458 DD/ 1456 TD/TT: Stick Puller: ECG 12 lead Reviewed date:09/21/2024 09:07:03 PM Interpretation: Performing Lab: Notes/Report: Source Facility: [place] [address] [place] [address] Electrocardiograph Report Signed Patient: MATTY GARCES MR#: [id number] : 1970 Acct:[id number] Age/Sex: 53 / M ADM Date: 09/19/24 Loc: ICU 270- Attending Dr: Venus Mendez M.D. Ordering Physician: Venus Mendez M.D. Date of Service: 09/20/24 Procedure(s): ECG 12 lead Accession Number(s): [id number] cc: [facility] Test Date: 2024-09-20 Pat Name: MATTY GARCES Department: Room: [facility] Gender: Male Coding Validator: : 1970 Requested By: VENUS MENDEZ Order Number: [id number] Reading MD: KENNETH ROWE Measurements Intervals [place] Rate: 67 P: 54 SD: 186 QRS: 62 QRSD: 94 T: 31 QT: 394 QTc: 409 Interpretive Statements [address]/T wave changes Electronically Signed On 09-21-2024 20:51:20 EST by KENNETH ROWE Dictated By: Kenneth Rowe D.O. Signed By: 09/21/242050 DD/ 130 TD/TT: Stick Puller: Troponin I High Sensitivity Reviewed date:09/20/2024 07:18:09 PM Interpretation: Performing Lab: Notes/Report: [facility] , Troponin I High Sensitivity 6.2 4.0-76.1 pg/m L CUT-OFF POINTS HAVE BEEN ESTABLISHED BASED ON THE FOURTH UNIVERSAL DEFINITION OF MYOCARDIAL INFARCTION. THE UPPER REFERENCE LIMIT (URL) OF TROPONIN, DEFINED THE 99TH PERCENTILE OF cTnI DISTRIBUTION IN A REFERENCE POPULATION, HAS BEEN CONFIRMED THE DECISION THRESHOLD FOR NE DIAGNOSIS. 99TH PERCENTILE = 76.2 PG/ML NOTE: HIGH-SENSITIVITY TROPONIN ASSAY IS NOT INTENDED TO BE USED IN ISOLATION BUT SHOULD BE INTERPRETED IN CONJUNCTION WITH OTHER DIAGNOSTIC AND CLINICAL INFORMATION. Performing Lab: see note ML - [facility] LB BLOOD GASES BTY Reviewed date:09/20/2024 07:18:09 PM Interpretation: Performing Lab: Notes/Report: [facility] , pH ABG 7.353 7.350-7.450 ABG PCO2 62.0 35.0-45.0 mmHg RESULTS VILLARREAL D TO ALEXIS MARTE RN PO2 ABG 91.6 80.0-100.0 mmHg HCO3 ABG 34.4 22.0-26.0 mmol/L Base Excess ABG 8.9 -2.0-2.0 mmol/L Oxygen Saturation ABG 97.9 Mundo Test POSITIVE POSITIVE O2 Mode BIPAP Fractionated Inspired Oxygen 35 Puncture Site LR BIPAP Pressure 18/10 Rate 14 Performing Lab: see note - [facility] LB Venous Blood Gas Reviewed date:09/19/2024 07:12:29 PM Interpretation: Performing Lab: Notes/Report: [facility] , pH VBG 7.476 7.330-7.430 PCO2 VBG 39.3 40.0-52.0 mmHg Performing Lab: see note - [facility] LB Blood Culture 1 Reviewed date:09/25/2024 08:20:56 PM Interpretation: Performing Lab: Notes/Report: [facility] , Blood Culture 1 See Below For Report Blood Culture 1 NG5D NO GROWTH AT 5 DAYS. Performing Lab: see note [facility] LB XR ankle LT min 3V Reviewed date:08/29/2024 12:27:30 PM Interpretation: Performing Lab: Notes/Report: Source Facility: [place] [address] XRay Report Signed Patient: MATTY GARCES MR#: [id number] : 1970 Acct:[id number] Age/Sex: 53 / M ADM Date: 08/29/24 Loc: ER Attending Dr: Ordering Physician: Ramandeep Amaral Date of Service: 08/29/24 Procedure(s): XR ankle LT min 3V Accession Number(s): [id number] cc: Venus Mendez M.D.; Ramandeep Amaral [place] [address] Patient Name: MATTY GARCES MRN: [id number] date: 1970 Sex: M Assigned Patient Location: ED.MAIN Current Patient Location: ER Accession/Order Number: [id number] Exam Date: 08/29/2024 05:10 Report Date: 08/29/2024 [...] Signed By: 08/29/24 0535 DD/ 0532 TD/TT: Stick Puller: ECG 12 lead Reviewed date:08/29/2024 12:27:30 PM Interpretation: Performing Lab: Notes/Report: Source Facility: [place] [address] [place] [address] Electrocardiograph Report Signed Patient: MATTY GARCES MR#: [id number] : 1970 Acct:[id number] Age/Sex: 53 / M ADM Date: 08/29/24 Loc: ER Attending Dr: Ordering Physician: Ramandeep Amaral Date of Service: 08/29/24 Procedure(s): ECG 12 lead Accession Number(s): [id number] cc: [facility] Test Date: 2024-08-29 Pat Name: MATTY GARCES Department: Room: - Gender: Male Coding Validator: : 1970 Requested By: VENUS MENDEZ Order Number: [id number] Reading MD: VENUS MENDEZ Measurements Intervals [place] Rate: 99 P: 58 SD: 168 QRS: 54 QRSD: 90 T: 30 [...] Signed By: 08/29/24 0659 DD/ 0500 TD/TT: Stick Puller: XR foot LT min 3V Reviewed date:08/29/2024 12:27:30 PM Interpretation: Performing Lab: Notes/Report: Source Facility: [place] [address] XRay Report Signed Patient: MATTY GARCES MR#: [id number] : 1970 Acct:[id number] Age/Sex: 53 / M ADM Date: 08/29/24 Loc: ER Attending Dr: Ordering Physician: Ramandeep Amaral Date of Service: 08/29/24 Procedure(s): XR foot LT min 3V Accession Number(s): [id number] cc: Venus Mendez M.D.; Ramandeep Amaral [place] [address] Patient Name: MATTY GARCES MRN: [id number] date: 1970 Sex: M Assigned Patient Location: ED.MAIN Current Patient Location: ER Accession/Order Number: [id number] Exam Date: 08/29/2024 05:10 Report Date: 08/29/2024 05:32 At the request of: RAMANDEEP AMARAL Procedure: XR foot LT min 3V EXAM: [...] Signed By: 08/29/24 0535 DD/ 0532 TD/TT: Stick Puller: PROF Deutsch(COMP METB) Reviewed date:08/29/2024 12:27:30 PM Interpretation: Performing Lab: Notes/Report: [facility] , Sodium 137 136-145 mmol/L Potassium [...] Performing Lab: see note ML - [facility] LB LACTATE or LACTIC ACID Reviewed date:08/29/2024 12:27:30 PM Interpretation: Performing Lab: Notes/Report: [facility] , Lactate/Lactic Acid 2.1 0.4-2.0 mmol/L RESULTS CALLED TO GUI LIANG RN @BY Supriya Nunes at 0508 Performing Lab: see note ML - [facility] LB CBC AUTO DIFF Reviewed date:08/29/2024 12:27:30 PM Interpretation: Performing Lab: Notes/Report: [facility] , White Blood Count 11.3 4.0-11.0 [...] Performing Lab: see note ML - [facility] LB XR foot LT min 3V Reviewed date:08/29/2024 12:27:30 PM Interpretation: Performing Lab: Notes/Report: Source Facility: [facility] [place] [address] [place] [address] XRay Report Signed Patient: MATTY GARCES MR#: [id number] : 1970 Acct:[id number] Age/Sex: 53 / M ADM Date: 08/22/24 Loc: Attending Dr: Harriett Gooden Ordering Physician: Harriett Gooden Date of Service: 08/22/24 Procedure(s): XR foot LT min 3V Accession Number(s): [id number] cc: Venus Mendez M.D.; Harriett Gooden [place] [address] Patient Name: MATTY GARCES MRN: [id number] date: 1970 Sex: M Assigned Patient Location: Current Patient Location: Accession/Order Number: [id number] Exam Date: 08/22/2024 13:51 Report Date: 08/23/2024 [...] Dictated By: Alvina Caicedo M.D. Signed By: 08/23/24801 DD/ 9 TD/TT: Stick Puller: CBC AUTO DIFF Reviewed date:08/05/2024 10:32:26 AM Interpretation: Performing Lab: Notes/Report: [facility] , White Blood Count 9.3 4.0-11.0 [...] Performing Lab: see note ML - [facility] LB XR ankle LT min 3V Reviewed date:08/05/2024 10:32:26 AM Interpretation: Performing Lab: Notes/Report: Source Facility: [facility] [place] [address] [place] [address] XRay Report Signed Patient: MILIMATTY MR#: [id number] : 1970 Acct:[id number] Age/Sex: 53 / M ADM Date: 07/04/24 Loc: RAD Attending Dr: Clarisa Vallejo D.P.M. Ordering Physician: Clarisa Vallejo D.P.M. Date of Service: 07/04/24 Procedure(s): XR ankle LT min 3V Accession Number(s): [id number] cc: Clarisa Vallejo D.P.M.; Venus Mendez M.D. [place] [address] Patient Name: MATTY GARCES MRN: [id number] date: 1970 Sex: M Assigned Patient Location: [facility] Current Patient Location: Accession/Order Number: [id number] Exam Date: 07/04/2024 08:59 Report Date: 07/08/2024 [...] M.D. Signed By: 07/08/24910 DD/ 8 TD/TT: Stick Puller: GLYCOHEMOGLOBIN A1C Reviewed date:07/09/2024 09:11:21 PM Interpretation: Performing Lab: Notes/Report: [facility] , Glycohemoglobin A1C 5.9 4.5-6.2 % ADA RECOMMENDED LIMIT 4.0 - 6.0 ADA THERAPEUTIC TARGET < 7.0 ACTION SUGGESTED > 7.0 Estimated Average Glucose 123 Performing Lab: see note ML - [facility] LB GLYCOHEMOGLOBIN A1C Reviewed date:08/05/2024 10:32:26 AM Interpretation: Performing Lab: Notes/Report: [facility] , Glycohemoglobin A1C 6.3 4.5-6.2 % ADA RECOMMENDED LIMIT 4.0 - 6.0 ADA THERAPEUTIC TARGET < 7.0 ACTION SUGGESTED > 7.0 Estimated Average Glucose 134 Performing Lab: see note ML - [facility] LB PROF 14(COMP METB) Reviewed date:04/24/2025 08:22:26 PM Interpretation: Performing Lab: Notes/Report: [facility] , Sodium 136 136-145 mmol/L Potassium 3.8 3.5-5.1 mmol/L Chloride 103 98-107 mmol/L Carbon Dioxide 29.3 21.0-32.0 mmol/L Anion Gap 7.5 Glucose 105 74-106 mg/dL Blood Urea Nitrogen 11.0 7.0-18.0 mg/dL Creatinine 0.95 0.70-1.30 mg/dL Estimated GFR ( Elizabeth >60 >=60 mL/min/1.73m 2 Estimated GFR (Non- Gwen >60 >=60 mL/min/1.73m 2 BUN Creatinine Ratio 11.6 Calcium 9.2 8.5-10.1 mg/dL Bilirubin Total 0.4 0.2-1.0 mg/dL Aspartate Amino Transferase 14 15-37 U/L Alanine Aminotransferase 21 16-63 U/L Alkaline Phosphatase 222 46-116 U/L Total Protein 7.9 6.4-8.2 g/dL Albumin Level 3.5 3.4-5.0 g/dL Globulin 4.4 Albumin Globulin Ratio 0.8 Performing Lab: see note ML - [facility] LB CBC AUTO DIFF Reviewed date:04/24/2025 08:22:26 PM Interpretation: Performing Lab: Notes/Report: [facility] , White Blood Count 7.6 4.0-11.0 10 3/uL Red Blood Count 4.83 4.70-6.10 10 6/uL Hemoglobin 14.5 14.0-18.0 g/dL Hematocrit 43.3 42.0-54.0 % Mean Corpuscular Volume 89.6 80.0-94.0 fL Mean Corpuscular Hemoglobin 30.0 25.9-34.0 pg Mean Corpuscular HGB Conc 33.5 29.9-35.2 g/dL Red Cell Distribution Width 15.3 11.0-15.0 % Platelet Count 202 150-450 10 3/uL Mean Platelet Volume 9.9 9.5-13.5 fL Neutrophils Percent Auto 74.5 43.0-75.0 % Lymphocytes Percent Auto 13.1 20.5-60.0 % Monocytes Percent Auto 8.9 1.7-12.0 % Eosinophils Percent Auto 1.3 0.9-7.0 % Basophils Percent Auto 1.1 0.2-2.0 % Immature Granulocytes Pct Auto 1.1 0.0-0.5 % Neutrophils Absolute Auto 5.6 1.4-6.5 10 3/uL Lymphocytes Absolute Auto 1.0 1.2-3.8 10 3/uL Monocytes Absolute Auto 0.7 0.3-0.8 10 3/uL Eosinophils Absolute Auto 0.1 0.0-0.7 10 3/uL Basophils Absolute Auto 0.1 0.0-0.1 10 3/uL Immature Granulocytes Abs Auto 0.08 0.00-0.03 10 3/uL Performing Lab: see note ML - [facility] Reason For Referral Diagnosis 1 Impingement of shoul candido (M25.819) Referral Organization [facility] Referring Provider First Name Kareem Referring Provider Last Name [facility] Referring Provider [facility] icine Referred Provider [facility], Physical Therap y Referred Provider Specialty Physical Med icine and Rehabilitation Referral Priority Routine Diagnosis 1 Ankle pain (M25.579) Referral Organization [facility] Referring Provider First Name Kareem Referring Provider Last Name [facility] Clarisa Vallejo Referred Provider Specialty Podiatry Referral Priority Routine Diagnosis 1 Left fibular fractur e (S82.402A) Referral Organization [facility] Referring Provider First Name Kareem Referring Provider Last Name [facility] Referring Provider [facility] icine Referred Provider Fahad Bland Referred Provider Specialty Orthopedic S urgery Referral Priority Routine Medications Medication SIG (Take, Route, Frequency, Duration) Notes Start Date End Date Status Gabapentin 600 mg Take 1 tablet orally once daily; Duration: 30 days Active Cholecalciferol 125 MCG (5000 UT) 1 tablet on the tongue and allow to dissolve Orally Once a day Active Multi For Him 50+ - as directed Orally Active CeleXA 40 MG 1 tablet Orally Once a day; Duration: 30 days 07/06/2024 Active Modafinil 200 MG 1 tablet in the morn ing Orally BID Active Doxazosin Mesylate 8 MG 1 tablet Orally Once a day; Duration: 90 days Active Pantoprazole Sodium 40 MG 1 tablet Orall y Once a day; Duration: 30 days Active Ondansetron 4 MG 1 tablet on the tong ue and allow to dissolve Orally Once a day Active Aspirin 81 81 MG 1 tablet Orally Once a day Active Glycopyrrolate 1 mg TAKE ONE TABLET BY M OUTH TWICE A DAY; Duration: 30 Active Carvedilol 25 MG 1 tablet with food O rally Twice a day; Duration: 30 days 10/31/2024 Active Meclizine HCl 12.5 MG 1 tablet as needed Orally prn every 12 hrs PRN Active Viagra 100 MG 1 tablet as needed O rally Once a day; Duration: 30 days 04/24/2025 Active Biotin 10 MG 1 tablet Orally Once a day Active Amantadine HCl 100 MG 1 tablet Orally BI D; Duration: 30 days Active Furosemide 20 mg TAKE ONE TABLET BY M OUTH ONCE DAILY FOR 30 DAYS; Duration: 30 Active Sildenafil Citrate 25 MG 1 tablet as nee ded Orally daily 04/04/2024 Active EpiPen 2-Doug 0.3 MG/0.3ML as directed In jection once 02/22/2025 Active Potassium Chloride ER 10 MEQ TAKE ONE TABLET BY MOUTH TWICE A DAY WITH FOOD; Duration: 30 Active SUMAtriptan Succinate 100 MG 1 tablet at least 2 hours between doses as needed Orally Twice a day PRN Active Simvastatin 20 mg TAKE ONE TABLET BY M OUTH DAILY IN THE EVENING; Duration: 30 Active BD Luer-Yaquelin Syringe 23G X 1 3 ML USE DIRECTED to INJECT testosterone WEEKLY; Duration: 28 days Active Testosterone Cypionate 200 MG/ML Inject 0.75 mL Intramuscular WEEKLY; Duration: 28 days 01/07/2025 Active Social History Tobacco Use: Social History [...] Problem Status W/U Status Risk Notes Problem Obstructive sleep apnea syndrome (disorder) (33988230) Obstructive sleep apnea (adult) (pediatric) (G47.33) Active confirmed Problem Foot ulcer due to type 2 diabetes mellitus (2157449276052) Type 2 diabetes mellitus with foot ulcer (E11.621) Active confirmed Problem Insomnia (928206096) Insomnia, unspecified (G47.00) Active confirmed Problem Acute on chronic hypoxemic and hypercapnic respiratory failure (disorder) (75437708145021) Acute and chronic respiratory failure with hypercapnia (J96.22) Active confirmed Problem Arthropathy associated with a neurological disorder (89290663) Charcot's joint, left ankle and foot (M14.672) Active confirmed Problem Hypertension (29515508) Hypertension (I10) Active confirmed Problem Gastroesophageal reflux disease (320137324) GERD (gastroesophagea l reflux disease) (K21.9) Active confirmed Problem Carpal tunnel syndrome (41788103) Carpal tunnel syndrome (G56.00) Active confirmed Problem Anxiety (62920748) Anxiety (F41.9) Active confi rmed Problem Pneumonia (109773443) Pneumonia (J18.9) Active confirmed Problem Depression (661509093) Depression (F32.9) Active confirmed Problem Obstructive sleep apnea syndrome (32763763) PATEL (obstructive sleep apnea) (G47.33) Active confirmed Problem Insomnia (552281981) Insomnia (G47.00) Active confirmed Problem Migraine (36988160) Migraine (G43.909) Active confirmed Problem Lumbar radiculopathy (595110755) Lumbar radiculopathy (M54.16) Active confirmed Problem Hypersomnia (11020174) Hypersomnia (G47.10) Active confirmed Problem Lumbar arthritis (disorder) (773041054) Lumbar spondylitis (M46.96) Active confirmed Problem Cervical disc disease (490575931) Cervical disc disease (M50.90) Active confirmed Problem Systolic murmur (48622017) Systolic murmur (I38) Active confirmed Problem Cellulitis (167220998) Cellulitis (L03.90) Active confirmed Problem Chronic pain (22933104) Chronic pain (G89.29) Active confirmed Problem Lateral epicondylitis (709956970) Lateral epicondylitis (M77.10) Active confirmed Problem Otitis externa (1539239) Otitis externa (H60.90) Active confirmed Problem Otitis externa of left ear (8860759860502220) Otitis externa of left ear (H60.92) Active confirmed Problem Arthralgia of the ankle and/or foot (108714918) Left ankle pain (M25.572) Active confirmed Problem Right upper quadrant pain (229128796) Right upper quadrant abdominal pain (R10.11) Active confirmed Problem Bursitis (72764687) Bursitis (M71.9) Active con firmed Problem Erectile dysfunction (disorder) (204928989) Impotence (N52.9) Active confirmed Problem Decreased testosterone level (668478105) Decreased testosterone level (E29.1) Active confirmed Problem Left fibular fracture (S82.402A) Active confirmed Problem Ulcer of right foot (disorder) (211032001) Foot ulcer, right (L97.519) Active confirmed Problem Non-pressure chronic ulcer of other part of left foot with muscle involvement without evidence of necrosis (L97.525) Active confirmed Problem Ulcer of big toe (disorder) (676760145) Chronic ulcer of great toe of left foot with fat layer exposed (L97.522) Active confirmed Problem Hyperhidrosis (068703206) Hyperhidrosis (R61) Active confirmed Problem Type II diabetes mellitus without complication (014386875) Diabetes (E11.9) Active confirmed Problem Diabetes mellitus (06684337) Diabetes mellitus (E11.9) Active confirmed Problem Body mass index 35.00 to 39.99 (761575522962180) Body mass index [BMI] 38.0-38.9, adult (Z68.38) Active confirmed Problem Polyneuropathy due to type 2 diabetes mellitus (470391969) Controlled type 2 diabetes mellitus with diabetic polyneuropathy, unspecified whether care home insulin use (E11.42) Active confirmed Problem Chronic ulcer of right foot (disorder) (17600055589680466) Chronic ulcer of right foot with fat layer exposed (L97.512) Active confirmed Problem Degeneration of lumbosacral intervertebral disc (43193957) Degenerative disc disease at L5-S1 level (M51.37) Active confirmed Vital Signs Heart Rate 88 /min 07/04/2024 Temperature 97.0 degrees Fahrenheit 07/04/2024 Blood pressure diastolic 82 mm Hg 04/27/2025 Oximetry 98 % 07/04/2024 Height 75 in 04/27/2025 Blood pressure systolic 132 mm Hg 04/27/2025 Weight 271.8 lbs 03/15/2025 BMI 33.97 kg/m2 03/15/2025 Encounters Encounter Location Date Provider Diagnosis [address] [address] 04/24/2025 Kareem Hoy Hypertension I10 [address] [address] 10/16/2024 Kareem Hoy Cellulitis L03.90 and Hypertension I10 [address] [address] 12/13/2024 Kareem Hoy Acute otitis media, left H66.92 ; Otalgia of left ear H92.02 and Otitis externa of left ear H60.[address] [address] 02/22/2025 Kareem Hoy Lumbar radiculopathy M54.16 ; Decreased testosterone level E29.1 ; Insomnia G47.00 ; Type 2 diabetes mellitus with foot ulcer E11.621 ; Hypertension I10 and Ankle pain M25.[address] [address] 03/15/2025 Kareem Hoy Lumbar radiculopathy M54.16 ; Diabetes E11.9 ; Controlled type 2 diabetes mellitus with diabetic polyneuropathy, unspecified whether accountant clerk insulin use E11.42 ; Ankle pain, left 719.47 and Ankle pain, right M25.[address] [address] 07/06/2024 Kareem Hoy HTN (hypertension) I10 ; Lumbar radiculopathy M54.16 ; Diabetes E11.9 ; GERD (gastroesophageal reflux disease) K21.9 ; Depression F32.9 and Impingement of shoulder M25.819 [facility] ([facility]) [address] [place] [address] [place] [address] 07/04/2024 Clarisa Vallejo Charcot's joint, left ankle and foot M14.672 ; Left fibular fracture S82.402A and Left ankle pain M25.572 [facility] [address] [facility] [place] [address] 07/07/2024 [facility] [address] [facility] [place] [facility] [place] [address] 08/03/2024 Kareem lamont Chronic pain G89.29 ; Migraine G43.909 ; HTN (hypertension) I10 ; Diabetes E11.9 and Screening for prostate cancer Z12.5 [facility] [address] [facility] [place] [facility] [place] [address] 08/05/2024 [facility] [address] [facility] [place] [address] 09/20/2024 [facility] [address] [facility] [place] [address] 09/20/2024 [facility] [address] [facility] [place] [address] 09/24/2024 [facility] [address] [facility] [place] [address] 09/25/2024 [facility] [address] [facility] [place] [address] 09/29/2024 [facility] [address] [facility] [place] [address] 10/02/2024 [facility] [address] [facility] [place] [address] 10/05/2024 [facility] [address] [facility] [place] [address] 10/17/2024 [facility] [address] [facility] [place] [address] 10/20/2024 [facility] [address] [facility] [place] [address] 10/31/2024 Kareem Mendez [facility] [address] [place] [place] [address] 03/07/2025 Kareem Barillasy [facility] [address] [place] [place] [address] 04/11/2025 Kareem Hoy Left fibular fracture S82.402A [facility] [address] [place] [place] [address] 04/18/2025 Kareem Mendez [facility] [address] [place] [place] [address] 04/24/2025 Kareem Mendez [facility] [address] [place] [address] 04/25/2025 Kareem Hoy HTN (hypertension) I10 and Decreased testosterone level E29.1 [facility] [address] [place] [address] 04/27/2025 Kareem Mendez [facility] [address] [place] [place] [address] 05/18/2025 Kareem Hoy Hypertension I10 [facility] [address] [place] [place] [address] 05/21/2025 Kareem Mendez [facility] [address] [place] [place] [address] 04/27/2025 Kareem Hoy Hypertension I10 Assessments Encounter Date Diagnosis (ICD Code) Assessment Notes Treatment Notes Treatment Clinical Notes Section Notes 07/04/2024 Charcot's joint, left ankle and foot [...] 07/06/2024 Lumbar radiculopathy (ICD-10 - M54.16) 10/16/2024 Cellulitis (ICD-10 - L03.90) 10/16/2024 Hypertension (ICD-10 - I10) 12/13/2024 Acute otitis media, left (ICD-10 - H66.92) 02/22/2025 Lumbar radiculopathy (ICD-10 - M54.16) 02/22/2025 Decreased testosterone level (ICD-10 - E29.1) 04/24/2025 Hypertension (ICD-10 - I10) stop the amlodipine 04/27/2025 Hypertension (ICD-10 - I10) 03/15/2025 Lumbar radiculopathy (ICD-10 - M54.16) 03/15/2025 Diabetes (ICD-10 - E11.9) 08/03/2024 Chronic pain (ICD-10 - G89.29) 08/03/2024 Migraine (ICD-10 - G43.909) 04/11/2025 Left fibular fracture (ICD-10 - S82.402A) 04/25/2025 HTN (hypertension) (ICD-10 - I10) 05/18/2025 Hypertension (ICD-10 - I10) 04/25/2025 Decreased testosterone level (ICD-10 - E29.1) 08/03/2024 HTN (hypertension) (ICD-10 - I10) 03/15/2025 Controlled type 2 diabetes mellitus with diabetic polyneuropathy, unspecified whether care home insulin use (ICD-10 - E11.42) 02/22/2025 Insomnia (ICD-10 - G47.00) 12/13/2024 Otalgia of left ear (ICD-10 - H92.02) 07/06/2024 Diabetes (ICD-10 - E11.9) not checking it often - says is normla 07/04/2024 Left ankle pain (ICD-10 - M25.572) 07/06/2024 GERD (gastroesophageal reflux disease) (ICD-10 - K21.9) 12/13/2024 Otitis externa of left ear (ICD-10 - H60.92) 02/22/2025 Type 2 diabetes mellitus with foot ulcer (ICD-10 - E11.621) 03/15/2025 Ankle pain, left (ICD9-CM - 719.47) 08/03/2024 Diabetes (ICD-10 - E11.9) 03/15/2025 Ankle pain, right (ICD-10 - M25.571) 02/22/2025 Hypertension (ICD-10 - I10) 07/06/2024 Depression (ICD-10 - F32.9) needs meds adjusted 07/06/2024 Impingement of shoulder (ICD-10 - M25.819) 02/22/2025 Ankle pain (ICD-10 - M25.579) 08/03/2024 Screening for prostate cancer (ICD-10 - Z12.5) 12/13/2024 Other You have been prescribed antibiotics for otitis media. Antibiotics may bother your stomach, so try taking them with a light meal (unless instructed otherwise by your pharmacist). It is important to take them until they are finished. You can use srxb-fyd-jxomqlh acetaminophen or ibuprofen if needed for pain. You have been prescribed antibiotics. You should be extra vigilant about hand washing or using hand pipe stem sawyer gel. You should follow up with your Primary Care Physician or return to clinic if not improving in the next 3-5 days. Plan Of Treatment Pending Test Test Name Order Date CMP (COMPLETE METABOLIC PANEL) 3 CMP (COMPLETE METABOLIC PANEL) 4 CMP (COMPLETE METABOLIC PANEL) 4 HEMOGLOBIN A1C (GLYCO) 07/06/2024 HEMOGLOBIN A1C (GLYCO) 10/29/2023 HEMOGLOBIN A1C (GLYCO) 06/02/2023 LIPID PANEL (CHOL/TRIG/HDL/LDL) 06/02/20 23 CBC WITH DIFF 06/02/2023 CBC WITH DIFF [...] OCCULT BLOOD 06/02/2023 AMMONIA 10/29/2023 BNP 10/29/2023 TESTOSTERONE, TOTAL 04/24/2025 TESTOSTERONE, TOTAL 12/06/2023 TESTOSTERONE, TOTAL 07/06/2024 TESTOSTERONE, TOTAL 04/25/2025 US ABD 10/13/2023 XR ANKLE RT MIN 3 VIEWS 08/11/2023 XR FOOT RT MIN 3 VIEWS 10/29/2023 XR FOOT RT MIN 3 VIEWS 08/11/2023 THYROID PANEL (T4/TSH/FREE T3) 3 THYROID PANEL (T4/TSH/FREE T3) 4 THYROID PANEL (T4/TSH/FREE T3) 4 PSA, SCREENING 08/03/2024 Lipid Panel 08/03/2024 CT ANKLE RIGHT WO CONTRAST 03/15/2025 Next Appt Details Provider Name:Kareem Whitt Andrea, 09:45:00 AM, [address] [place], [address], Insurance Providers Payer Name Payer Address Payer Phone Subscriber Number Group Number Insured Name Patient Relationship to Insured Coverage Start Date Coverage End Date [employer] [place] [employer] [address] [address] [place] [address] [phone] [id number] Matty Garces Self - patient is the [...] Fx 03/15/24 Hospitalization History Reason Date(Month/Year) cervical surgery 2018 see above cervical 2018
--- OUTSIDE RECORDS SUMMARY | 2025-06-27 13:26 | XMS_ITS | Patient Health Record ---
Author Organization [facility] Address [address] [place] [address] Care Team Providers Care Business Transformation Consultant Name Role Phone Fela Álvarez Primary Care Provider Stephie Calzada Unavailable Reason For Referral No Information Encounters Encounter Location Date Provider Diagnosis [facility] [address] [place] [address] 02/15/2025 Stephie Messina [address] [address] 01/16/2025 Stephie Messina Cracked tooth K03.81 ; [...] Coverage Start Date Coverage End Date Dental [place] DQ Terminated 24 [address] [place] [phone] [id number] MATTY WADE Self - patient is the insured 3 [employer] [place] BCBS Termed 2024 [address] [place] [address] [id number] MATTY WADE Self - patient is the insured 3 [employer] [address] [address] [place] [address] [id number] MATTY WADE Self - patient is the insured 5
--- OUTSIDE RECORDS SUMMARY | 2025-06-27 13:26 | XMS_ITS | Encounter Summary ---
Author Organization [facility] Address [address] [place] [address] Care Team Providers Care Trial Examiner Name Role Phone Caden Mendez MD Primary Care Provider [phone] Encounter Details Date Type Department Care Team (Late st Contact Info) Description 07/17/2023 Abstract [facility] [address] [place] [phone] Christiano Geiger MD [address] [facility] [address] [place] [address] Social History Tobacco Use Types Packs/Day Years [...] on filedocumented in this encounter Care Teams Trial Examiner Relationship Specialty Start Date End Date Caden Mendez MD PCP - General Family Medicine 01/10/24 documented as of this encounter
--- OUTSIDE RECORDS SUMMARY | 2025-06-27 13:26 | XMS_ITS | Encounter Summary ---
Author Organization [facility] Address [address] [facility] [place] [address] Care Team Providers Care Bobbin Washer Name Role Phone Caden Mendez MD Primary Care Provider [phone] Encounter Details Date Type Department Care Team (Late st Contact Info) Description 06/21/2025 Telephone [facility] [address] [facility] [address] [place] [phone] Radha Wright MA Social History Tobacco Use Types Packs/Day Years [...] Telephone Encounter - Heather Miguel NP - 06/25/2025 8:22 AM EDT I just went with what you guys had on form. I did not increase anything. * Telephone Encounter - Juliana Lambert MA - 06/24/2025 9:53 PM EDT Do you recall increasing this? Looks like you had spoke to them back in March. * Telephone Encounter - Christiano Geiger MD - 06/21/2025 11:00 AM EDT Juliana set up this dose for me to sign please it wont allow BID like pharmacist says * Telephone Encounter - Radha Wright MA - 06/21/2025 9:21 AM EDT Message left from [facility]- Ok, my name is Adriana. I am a pharmacist with [facility], our phone number , option [phone] will connect you with a pharmacist calling in regards to mutual patient of Dr. Geiger, patients name Alden, last name Mili, 1970 in regards to patients Bev. Patient prescription on files for the 2.25g twice nightly. The patient reported to us that his dose has been increased and he is been taking the 3.25g twice daily, but we have not received a new prescription for that dose. So we are needing to request approval from the that the dose increase was authorized by the prescriber and not patient himself and to provide a new prescription. If that is approved, our phone number option 3 then 4. We are here Wednesday through Wednesday from 7AM to 8PM central standard ti pr. Thanks, have a good bye bye documented in this encounter Plan of Treatment Not on file documented as of this encounter Visit Diagnoses Not on filedocumented in this encounter Care Teams Bobbin Washer Relationship Specialty Start Date End Date Caden Mendez MD PCP - General Family Medicine 01/10/24 documented as of this encounter
--- OUTSIDE RECORDS SUMMARY | 2025-06-27 13:26 | XMS_ITS | Clinical Summary ---
Author Organization [facility] Address [address] [place] [address] Care Team Providers Care Loan Representative Name Role Phone Caden Mendez MD Primary Care Provider [phone] Allergies Active Allergy Reactions Criticality Noted Date [...] at the same time Active HYDROcodone-aceta minophen ([place]) 5-325 MG tablet 03/20/20 24 Active cholecalciferol (Vitamin D-3) 125 MCG (5000 UT) capsule 03/15/20 24 Active senna (Senokot) 8.6 MG tablet 03/15/20 24 Active ondansetron ODT (Zofran-ODT) 4 MG disintegrating tablet 03/15/20 24 Active hydrOXYzine pamoate (Vistaril) 25 MG [...] tabletIndications :Excessive daytime sleepiness,Obstru ctive sleep apnea TAKE 1 TABLET (200 MG) BY MOUTH IN THE MORNING AND AT NOON 60 tablet 2 05/16/20 25 025 Active amantadine (Symmetrel) 100 MG tabletIndications :Excessive daytime sleepiness,Primar y insomnia TAKE 1 TABLET (100 MG) BY MOUTH IN THE MORNING AND AT NOON 60 tablet 11 05/16/20 25 026 Active Active Problems Problem Noted Date Diagnosed [...] Encounters Date Type Department Care Team Description 06/21/2025 Telephone [facility] [address] [place] [address] [place] [address] Radha Wright MA 05/15/2025 Refill [facility] [address] [place] [address] [place] [address] Heather Miguel NP Excessive daytime sleepiness; Primary insomnia 05/15/2025 Refill [facility] [address] [place] [address] [place] [address] Christiano Geiger MD Excessive daytime sleepiness; Obstructive sleep apnea 04/04/2025 11:20 AM EDT Office Visit [facility] [address] [place] [address] [place] [address] Christiano Geiger MD Narcolepsy cataplexy syndrome (HCC) (Primary Dx); Excessive daytime sleepiness; Cervical disc disorder; Intractable chronic migraine with aura with status migrainosus 04/04/2025 Bamboo flowsheet [facility] [address] [place] [address] Christiano Geiger MD 04/04/2025 Travel 04/02/2025 Telephone [facility] [place] [facility] [address] [address] Christiano Geiger MD from Last 3 Months Family History Medical [...] 04/04/2025 11:03 AM EDT Plan of Treatment Health Maintenance Due Date Last Done Comments CT Colonography 1970 Colonoscopy 1970 Colorectal Cancer Screening 1970 FIT-DNA 1970 FIT 1970 FOBT 1970 Sigmoidoscopy 1970 Influenza Vaccine (#1) 2025 4, 07/06/2023, 07/15/2022, Additional history exists Insurance [facility] MEDICAID [place] Care Teams Loan Representative Relationship Specialty Start Date End Date Caden Mendez MD PCP - General Family Medicine 01/10/24
--- OUTSIDE RECORDS SUMMARY | 2025-06-27 13:26 | XMS_ITS | Clinical Summary ---
Author Organization [facility] Address [address] [place] [address] Care Team Providers Care Administrative Support Assistant Name Role Phone Unavailable Primary Care Provider Unavailabl e Source Comments The following information is NOT included in Care Everywhere downloads:Psychiatric notes, ECG results, Cardiac Rehab notes, Pulmonary Function notes, data from [facility] (includes but not limited toPregnancy data,audiograms, eye exams, pre-surgical evaluation notes, well-child exam data).[facility] Medications TRAMADOL HCL ORAL Take by mouth [...] of 2) 2019 COVID-19 Vaccine (1 - season) 2025 Influenza Vaccine (#1) 2025 Insurance MEDICAID
--- OUTSIDE RECORDS SUMMARY | 2025-06-27 13:26 | XMS_ITS | Clinical Summary ---
Author Organization [facility] Address [address] [place] [address] Care Team Providers Care Oyster Cultivator Name Role Phone Caden Mendez MD Primary Care Provider [phone] Allergies No known active allergies Medications traMADOL [...] of 2) 2019 Covid-19 Vaccine (1 - 2024- season) 2025 Influenza Vaccine (#1) 2025 Procedures Procedure Name Priority Date/Time Associated Diagnosis Comments COMPREHENSIVE METABOLIC PANEL Routine 05/17/2012 1:47 PM EDT Myalgia from Last 3 Months or Most Recently Relevant to Health Maintenance Results * (ABNORMAL) COMP METABOLIC PANEL (05/17/2012 1:47 PM EDT) Protein, Total 7.5 6.0 - 8.4 g/dL [facility] Albumin 4.8 3.5 - 5.0 g/dL [facility] Calcium 9.6 8.5 - 10.5 mg/dL [facility] Bilirubin, Total 0.3 0.0 - 1.5 mg/dL [facility] Alkaline Phosphatase 70 40 - 150 U/L [facility] AST 20 7 - 40 U/L [facility] Glucose 54(L) 65 - 100 mg/dL [facility] BUN 25 10 - 25 mg/dL [facility] Creatinine 1.00 0.70 - 1.40 mg/dL [facility] Sodium 143 135 - 146 mmol/L [facility] Potassium 3.5 3.5 - 5.0 mmol/L [facility] Chloride 104 98 - 110 mmol/L [facility] CO2 28 23 - 32 mmol/L [facility] Anion Gap 11 0 - 15 mmol/L [facility] ALT 30 5 - 50 U/L [facility] eGFR- >60 [facility] eGFR-All Other Races >60 . [facility] Comment: eGFR (Estimated GFR) Units [...] EDT Joan Smith MD LABORATORY Final Result [facility] [address] [place] [address] from Last 3 Months or Most Recently Relevant to Health Maintenance Insurance [employer] [place] Care Teams Oyster Cultivator Relationship Specialty Start Date End Date Caden Mendez MD PCP - General Family Medicine 03/08/12
--- OUTSIDE RECORDS SUMMARY | 2025-06-27 13:26 | XMS_ITS | Encounter Summary ---
Author Organization [facility] Address [address] [place] [address] Care Team Providers Care Private Investigator Name Role Phone Caden Mendez MD Primary Care Provider [phone] Encounter Details Date Type Department Care Team (Late st Contact Info) Description 03/11/2023 External Result Encounter [facility] External Department Unsolicited Christiano Geiger MD [address] [facility] [address] [phone] Social History Tobacco Use Types Packs/Day Years [...] on file documented as of this encounter Procedures Procedure [...] Crow Contreras M.D.03/11/2023 3:48 PM Dictation Location: [place] [address] Transcribed By: [facility] 03/11/23 1548 Dictated By: Crow Contreras DO 03/11/23 1544 Signed By: <Electronically signed by Crow Contreras DO in OV> 03/11/23 1548 Narrative 03/12/2023 8:34 AM EDT [place] [id number] XRay Report Signed Patient: Alden Garces MR#: [id number] 97 : 1970 Acct:[id number] Age/Sex: 52 / M ADM Date: 03/11/23 Loc: ICXD Room: Type: REG CLI Attending Dr: Christiano Geiger MD Copies to: [...] cervical spine 5V* Procedure Note Radiology, Radiologist, MD - 03/12/[address] [address] XRay Report Signed Patient: Alden Garces TMR#: [id number] 97 : 1970Acct:[id number] Age/Sex: 52 / MADM Date: 03/11/23 Loc: ICXD Room:Type: REG CLI Attending Dr: Christiano Geiger MD Copies to: [...] Crow Contreras M.D.03/11/2023 3:48 PM Dictation Location: [place] [address] Transcribed By: [facility] 03/11/23 1548 Dictated By: Crow Contreras DO 03/11/23 1544 Signed By: <Electronically signed by Crow Contreras DO in OV> 03/11/23 1548 us Christiano Geiger MD IMG XR PROCEDURES Final Resul t documented in this encounter Visit Diagnoses Not on filedocumented in this encounter Care Teams Private Investigator Relationship Specialty Start Date End Date Caden Mendez MD PCP - General Family Medicine 01/10/24 documented as of this encounter
--- OUTSIDE RECORDS SUMMARY | 2025-06-27 13:28 | XMS_ITS | CCD ---
Author Organization [facility] CliniSymt Care Team Providers Care Medical Billing Clerk Name Role Phone UNKNOWN, PROVIDER Admitting Unavailable UNKNOWN, PROVIDER Attending Unavailable VENUS JAEGER Referring Unavailable VENUS JAEGER Primary Care Unavailable [place] Procedure Practitioner Unavailab le UNKNOWN, PROVIDER Surgeon Unavailable [place] Procedure Practitioner Unavailab le SANDRA BILL Surgeon Unavailable UNKNOWN, PROVIDER Admitting Unavailable UNKNOWN, PROVIDER Attending Unavailable VENUS JAEGER Referring Unavailable VENUS JAEGER Primary Care Unavailable [place] Procedure Practitioner Unavailab [...] MANUEL Consulting Unavailable MAYRA BERNAL Consulting Unavailable Gieditis , Andrius Berkowitz Attending Unavailable Giedraitis , Andrius Woo Attending Unavailable Giedraitis , Andrius Woo Attending Unavailable Giedraitis , Andrius Woo Attending Unavailable Giedraitis , Andrius Berkowitz Attending Unavailable CHINO Vallejo Attending Provider [phone] Venus Jaeger MD Primary Care Provider [phone] Trey Vallejo DPM Attending Provider [phone] MARIANNA SUAREZ Referring Unavailable SUYAPA, SHIN Referring Unavailable SUYAPA, SHIN Referring Unavailable SELMA, SANDRINE Referring Unavailable MAI, CHRISTDAVIDER Referring Unavailable SUYAPA, SHIN Referring Unavailable SUYAPA, SHIN Referring Unavailable HINDERS, MARILOU Referring Unavailable AMEGEE, TONIO Referring Unavailable AMEGEE, TONIO Referring Unavailable SELMA, SANDRINE Referring Unavailable AMEGEE, TONIO Referring Unavailable SELMA, SANDRINE Referring Unavailable SUYAPA, SHIN Referring Unavailable KATKO, SERA Referring Unavailable HERNANDEZ, LICO Admitting Unavailable HERNANDEZ, LICO Attending Unavailable ARMANDO BERG Referring Unavailable SHAUN FABIOLA Admitting Unavailable AROLDO FABIAN Attending Unavailable SUYAPA, SHIN Referring Unavailable Venus Jaeger MD Primary Care Provider [phone] RUBÉN GEIGER Attending Unavailable RUBÉN GEIGER Attending Unavailable RUBÉN GEIGER Attending Unavailable RUBÉN GEIGER Attending Unavailable Venus Jaeger MD Primary Care Provider [phone] Jameel Coats DO Attending Provider [phone] Bonnie Ernandez MD Attending Provider Trey Vallejo Attending Unavailable Trey Vallejo Admitting Unavailable Bonnie Ernandez Attending Unavailable Bonnie Ernandez Admitting Unavailable Jameel Coats Attending Unavailable Jameel Coats Admitting Unavailable Venus Jaeger Primary Care Unavailable Allergies Allergy Classification Reported Allergen(s) Allergy Type Date of Onset Reaction(s) Facility (1 source) Aspartame Drug Allergy 12 [facility] Repository (1 source) avoid; Translations: [Unknown] Propensity to adverse reactions (disorder) 08-17-20 [facility] Repository (1 source) vitamin B12; Translations: [cyanocobalamin] Drug Allergy Unknown (qualifier value) [facility] (1 source) Acetaminophen / HYDROcodone Drug Allergy [facility] Repository (1 source) Corticosteroids Drug allergy (disorder) [facility] Repository (1 source) fentaNYL Drug Allergy [facility] Repository (1 source) Misc-Food; Translations: [Misc-Food] Food allergy (disorder) [facility] Repository (19 sources) fentaNYL Drug Allergy 07-08-20 Unknown [facility] (19 sources) HYDROcodone Drug Allergy 07-08-20 Unknown [facility] (19 sources) Morphine And Codeine Drug Allergy 07-08-20 Unknown [facility] Healthcare (19 sources) Other Propensity to adverse reactions 07-08-20 [facility] (1 source) Corticosteroids Drug allergy (disorder) 05-07-20 [facility] Repository Medications Current Medications Medication Drug Class(es) Dates Sig (Normalized) Sig (Original) acetaminophen 325 mg / HYDROcodone bitartrate 5 mg oral tablet (19 sources) Opioid Agonist Start: 03-20-2024 HYDROcodone-acet aminophen ([place]) 5-325 MG tablet 03/20/2024 Active aspirin 81 mg delayed release oral [...] 2018 12:00am diazePAM 5 mg oral tablet (5 sources) Benzodiazepine Start: 05-14-2018 take 1 tablet by mouth at bedtime diclofenac sodium 75 mg delayed release oral tablet (5 sources) Nonsteroidal Anti-inflammatory Drug Start: 05-14-2018 take [...] 05/11/2024 Active lisinopril 10 mg oral tablet (5 sources) Angiotensin Converting Enzyme Inhibitor Start: 05-14-2018 [...] omeprazole 40 mg delayed release oral capsule (5 sources) Proton Pump Inhibitor Start: 05-14-2018 take [...] Take with food. . 02/22/2023 Active sennosides, mcc 8.6 mg oral tablet (19 sources) Start: [...] by mouth at bedtime. Active Vit D3-Folic Wamd-D9-X0-B12 (1 source) Start: 05-14-2018 take 1 tablet by mouth once daily Vit D3-Folic Mrdt-N0-O5-B12 Active 1 TAB PO Daily May 14, 2018 12:00am Vit D3-Folic Rxmm-T4-I1-B12 2,000-800-0.32 unit-mcg-mg Tablet (4 sources) Start: 05-14-2018 take 1 tablet by mouth once daily Start: 05-14-2018 take 1 tablet by shruthi once daily Vit D3-Folic Ffmj-G0-X7-B12 2,000-800-0.32 unit-mcg-mg Tablet Active 1 TAB PO Daily May 13, 2018 11:00pm Completed/Discontinued Medications Medication Drug Class(es) Dates Sig (Normalized) Sig (Original) amantadine hydrochloride 100 mg oral tablet (20 sources) Influenza A M2 Protein Inhibitor Start: 05-07-2025 End: 05-16-2026 Amantadine Hcl 100 mg tablet Discontinued MG PO May 07, 2025 12:00am Start: 04-10-2024 End: 04-10-2025 take 1 tablet by mouth in the morning amantadine (Symmetrel) 100 MG tablet Indications: Excessive daytime sleepiness , Primary insomnia Take 1 tablet (100 mg) by mouth in the morning and at noon 180 tablet 3 04/10/2024 04/10/2025 Active apixaban 5 mg oral tablet (3 sources) Factor Xa Inhibitor Start: 05-07-2025 Apixaban ( Eliquis) 5 mg tablet Discontinued MG PO May 07, 2025 12:00am carvedilol 25 mg oral tablet (20 sources) alpha-Adrenergic Jorge L, beta-Adrenergic Joreg L Start: 02-26-2022 Carvedilol 25 mg tab let Discontinued MG PO May [...] Status: Ordered modafinil 200 mg oral tablet (20 sources) Sympathomimetic-like Agent Start: 05-07-2025 End: 08-14-2025 Modafinil 200 mg tablet Discontinued MG PO May 07, 2025 12:00am Start: 04-10-2024 End: 04-03-2025 take 1 tablet [...] 8 06-21-2023 Chronic Other aftercare (1 source) [facility] (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; Translations: [[employer] 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 ASPIRIN] Onset: 3 Episodic Other aftercare (1 source) Other prison (current) drug therapy; Translations: [OTH SNF CURRENT DRUG THERAPY] Onset: 3 Episodic Other bone disease and musculoskeletal deformities (3 sources) Hypertrophy of bone; Translations: [Hypertrophy of [...] Phys. EHR Cmte Other connective tissue disease (3 sources) Pain in right lower limb; Translations: [...] Range Facility CT lower leg RT wo [facility] CT lower leg RT wo [facility] [place] [address] [place] [address] CT Scan Report Signed Patient: Matty Garces MR#: [id number] : 1970 Acct:[id number] Age/Sex: 54 / M ADM Date: 05/29/25 Loc: CT Room: Type: [facility] CLI Attending Dr: Jameel Coats [...] Irving M.D. 05/29/2025 11:40 PM Dictation Location: [place] [address] Transcribed By: [facility] 05/29/25 234 Dictated By: Francis Irving II, MD 05/29/252328 Signed By: 05/29/252339 Normal [facility] ECG 12-LEADon 03-06-2025 [place] [address] Electrocardiograph Report Signed Patient: MATTY GARCES MR#: [id number] : 1970 Acct:[id number] Age/Sex: 54 / M ADM Date: 03/05/25 Loc: [place] 221-[address]: Venus Jaeger M.D. Ordering Physician: Jess Castañeda Date of Service: 03/05/25 Procedure(s): ECG 12 lead Accession Number(s): [id number] cc: [facility] Test Date: 2025-03-05 Pat Name: MATTY GARCES Department: Room: - Gender: Male Folder And Notcher: : 1970 Requested By: 0923 Order Number: [id number] Reading MD: RAMIRO WALLS M.D. Measurements Intervals [place] Rate: 76 P: 60 KS: 178 QRS: 69 QRSD: 100 T: 46 QT: 406 QTc: 437 Interpretive Statements 1100 Sinus rhythm 0102 ARTIFACT PRESENT 9110 normal ECG Compared to ECG 09/23/2024 05:51:07 No significant changes Electronically Signed On 03-06-2025 9:29:34 EDT by RAMIRO WALLS M.D. Dictated By: RAMIRO WALLS Signed By: 03/06/25928 DD/ 06 TD/TT: Hardwood Floor Sander: [facility] Radiology, Radiologist, - 03/06/[address] [address] Electrocardiograph Report Signed Patient: MATTY GARCES MR#: [id number] : 1970 Acct:[id number] Age/Sex: 54 / M ADM Date: 03/05/25 Loc: MS 221-[address]: Venus Jaeger M.D. Ordering Physician: Jess Castañeda Date of Service: 03/05/25 Procedure(s): ECG 12 lead Accession Number(s): [id number] cc: [facility] Test Date: 2025-03-05 Pat Name: MATTY GARCES Department: Room: - Gender: Male Folder And Notcher: : 1970 Requested By: 0923 Order Number: [id number] Reading MD: RAMIRO WALLS M.D. Measurements Intervals [place] Rate: 76 P: 60 KS: 178 QRS: 69 QRSD: 100 T: 46 QT: 406 QTc: 437 Interpretive Statements 1100 Sinus rhythm 0102 ARTIFACT PRESENT 9110 normal ECG Compared to ECG 09/23/2024 05:51:07 No significant changes Electronically Signed On 03-06-2025 9:29:34 EDT by RAMIRO WALLS M.D. Dictated By: RAMIRO WALLS Signed By: 03/06/25928 DD/ 06 TD/TT: Hardwood Floor Sander: [facility] ECG 12-LEADOrdered By: Radio logist Radiology on 03-06-2025 [facility] Work Phone: ECG 12-LEADon 03-05-2025 Radiology Study observation (narrative) [facility] BASIC METABOLIC PANELon 09-14 Anion gap [Moles/Vol] 8 mmol/L Normal 7-20 [facility] Comment on above: Performed By: #### L [id number] #### [facility] ([facility]) [address] [place] [address] Calcium [Mass/Vol] 9.7 mg/dL Normal 8.6-10.3 [facility] Comment on above: Performed By: #### L [id number] #### [facility] ([facility]) [address] [place] [address] Chloride [Moles/Vol] 97 mmol/L Low 98-107 [facility] Comment on above: Performed By: #### L [id number] #### [facility] (BEAKER) [address] [place] [address] CO2 [Moles/Vol] 35 mmol/L High 21-31 [facility] Comment on above: Performed By: #### L [id number] #### [facility] [address] [place] [address] Creatinine [Mass/Vol] 1.02 mg/dL Normal 0.70-1.30 [facility] Comment on above: Performed By: #### L [id number] #### [facility] ([facility]) [address] [place] [address] GLOMERULAR FILTRATION RATE ML/MIN/1.73 SQ M.PREDICTED 86.8 mL/min/1.73m*2 Normal >60.0 [facility] Comment on above: Result Comment: [facility]???s estimated glomerular filtration rate (eGFR) will no [...] individuals. Performed By: #### L [id number] #### [facility] ([facility] [address] [place] [address] Glucose [Mass/Vol] 80 mg/dL Normal 70-100 [facility] Comment on above: Performed By: #### L [id number] #### [facility] ([facility] [address] [place] [address] Potassium [Moles/Vol] 4.2 mmol/L Normal 3.5-5.1 [facility] Comment on above: Performed By: #### L [id number] #### [facility] ([facility] [address] [place] [address] Sodium [Moles/Vol] 136 mmol/L Normal 136-145 [facility] Comment on above: Performed By: #### L [id number] #### [facility] ([facility]) [address] [place] [address] Urea nitrogen [Mass/Vol] 8 mg/dL Normal 7-25 [facility] Comment on above: Performed By: #### L [id number] #### [facility] ([facility]) [address] [place] [address] UREA NITROGEN/CREATININE (MASS RATIO) IN SER/PLAS 7.8 Normal [facility] Comment on above: Performed By: #### L [id number] #### [facility] ([facility]) [address] [place] [address] CBC WITH AUTO DIFFERENTIALon 10-11-2024 Basophils (Bld) [#/Vol] 0.06 10*3/uL Normal 0.00-0.20 [facility] Comment on above: Performed By: #### L [id number] ####[facility] ([facility])[address] [place] [address] Basophils/100 WBC (Bld) 0.9 % Normal 0.0-1.0 [facility] Comment on above: Performed By: #### L [id number] ####[facility] ([facility] [place] [address] Eosinophils (Bld) [#/Vol] 0.21 10*3/uL Normal 0.00-0.50 [facility] Comment on above: Performed By: #### L [id number] ####[facility] ([facility] [place] [address] Eosinophils/100 WBC (Bld) 3.0 % Normal 0.0-6.0 [facility] Comment on above: Performed By: #### L [id number] ####[facility] ([facility])[address] [place] [address] Erythrocyte distribution width (RBC) [Ratio] 16.7 % High 11.5-15.0 [facility] Comment on above: Performed By: #### L [id number] ####[facility] ([facility])[address] [place] [address] ERYTHROCYTE MEAN CORPUSCULAR HEMOGLOBIN CONCENTRATION (G/DL) BY AUTOMATED 29.9 g/dL Low 32.0-35.0 [facility] Comment on above: Performed By: #### L [id number] ####[facility] ([facility])[address] [place] [address] Hematocrit (Bld) [Volume fraction] 44.5 % Normal 39.0-55.0 [facility] Comment on above: Performed By: #### L [id number] ####[facility] ([facility])[address] [place] [address] Hemoglobin (Bld) [Mass/Vol] 13.3 g/dL Normal 13.0-17.0 [facility] Comment on above: Performed By: #### L [id number] ####[facility] ([facility])[address] [place] [address] Immature granulocytes (Bld) [#/Vol] 0.11 10*3/uL Normal 0.00-0.20 [facility] Comment on above: Performed By: #### L [id number] ####[facility] ([facility])[address] [place] [address] Immature granulocytes/100 WBC (Bld) 1.6 % High 0.0-1.0 [facility] Comment on above: Performed By: #### L [id number] ####[facility] ([facility] [place] [address] Lymphocytes (Bld) [#/Vol] 0.91 10*3/uL Low 1.20-4.00 [facility] Comment on above: Performed By: #### L [id number] ####[facility] ([facility])[address] [place] [address] Lymphocytes/100 WBC (Bld) 12.9 % Low 20.0-45.0 [facility] Comment on above: Performed By: #### L [id number] ####[facility] (BEAKER)[address] [place] [address] MCH (RBC) [Entitic mass] 26.9 pg Low 27.0-33.0 [facility] Comment on above: Performed By: #### L [id number] ####[facility] (BEAKER)[address] [place] [address] MCV (RBC) [Entitic vol] 89.9 fL Normal 82.0-98.0 [facility] Comment on above: Performed By: #### L [id number] ####[facility] (BEAKER)[address] [place] [address] Monocytes (Bld) [#/Vol] 0.65 10*3/uL Normal 0.10-1.00 [facility] Comment on above: Performed By: #### L [id number] ####[facility] (BEAKER)[address] [place] [address] Monocytes/100 WBC (Bld) 9.2 % Normal 5.0-12.0 [facility] Comment on above: Performed By: #### L [id number] ####[facility] ([facility])[address] [place] [address] Neutrophils (Bld) [#/Vol] 5.11 10*3/uL Normal 1.60-7.60 [facility] Comment on above: Performed By: #### L [id number] ####[facility] (BEAKER)[address] [place] [address] Neutrophils/100 WBC (Bld) 72.4 % High 40.0-72.0 [facility] Comment on above: Performed By: #### L [id number] ####[facility] ([facility]ER)[address] [place] [address] NRBC (PER 100 WBCS) BY AUTOMATED COUNT 0.0 % Normal 0 [facility] Comment on above: Performed By: #### L [id number] ####[facility] ([facility])[address] [place] [address] PLATELETS (10*3/UL) IN BLOOD AUTOMATED COUNT 218 10*3/uL Normal 150-400 [facility] Comment on above: Performed By: #### L [id number] ####[facility] ([facility])[address] [place] [address] RBC (Bld) [#/Vol] 4.95 10*6/uL Normal 4.20-5.70 [facility] Comment on above: Performed By: #### L [id number] ####[facility] ([facility])[address] [place] [address] WBC (Bld) [#/Vol] 7.05 10*3/uL Normal 4.00-10.60 [facility] Comment on above: Performed By: #### L [id number] ####[facility] ([facility])[address] [place] [address] BASIC METABOLIC PANELon 09-14 Anion gap [Moles/Vol] 9 mmol/L Normal 7-20 [facility] Comment on above: Performed By: #### L [id number] #### [facility] ([facility]) [address] [place] [address] Calcium [Mass/Vol] 9.5 mg/dL Normal 8.6-10.3 [facility] Comment on above: Performed By: #### L [id number] #### [facility] ([facility] [address] [place] [address] Chloride [Moles/Vol] 96 mmol/L Low 98-107 [facility] Comment on above: Performed By: #### L [id number] #### [facility] ([facility] [address] [place] [address] CO2 [Moles/Vol] 34 mmol/L High 21-31 [facility] Comment on above: Performed By: #### L [id number] #### [facility] ([facility]) [address] [place] [address] Creatinine [Mass/Vol] 0.93 mg/dL Normal 0.70-1.30 [facility] Comment on above: Performed By: #### L [id number] #### [facility] ([facility]) [address] [place] [address] GLOMERULAR FILTRATION RATE ML/MIN/1.73 SQ M.PREDICTED 97.0 mL/min/1.73m*2 Normal >60.0 [facility] Comment on above: Result Comment: [facility]???s estimated glomerular filtration rate (eGFR) will no [...] individuals. Performed By: #### L [id number] #### [facility] ([facility]) [address] [place] [address] Glucose [Mass/Vol] 85 mg/dL Normal 70-100 [facility] Comment on above: Performed By: #### L [id number] #### [facility] ([facility]) [address] [place] [address] Potassium [Moles/Vol] 4.0 mmol/L Normal 3.5-5.1 [facility] Comment on above: Performed By: #### L [id number] #### [facility] ([facility]) [address] [place] [address] Sodium [Moles/Vol] 135 mmol/L Low 136-145 [facility] Comment on above: Performed By: #### L [id number] #### [facility] [address] [place] [address] Urea nitrogen [Mass/Vol] 8 mg/dL Normal 7-25 [facility] Comment on above: Performed By: #### L [id number] #### [facility] ([facility]) [address] [place] [address] UREA NITROGEN/CREATININE (MASS RATIO) IN SER/PLAS 8.6 Normal [facility] Comment on above: Performed By: #### L [id number] #### [facility] ([facility]) [address] [place] [address] C-REACTIVE PROTEINon 025 C REACTIVE PROTEIN (MG/L) IN SER/PLAS 11.5 mg/L High <=5.0 [facility] Comment on above: Result Comment: Test ing performed using a new methodology, turbidimetry. Normal ranges have been updated. Old normal range was <8 mg/L. Performed By: #### L [id number] #### [facility] ([facility]) [address] [place] [address] CBC WITH AUTO DIFFERENTIALon 10-10-2024 Basophils (Bld) [#/Vol] 0.08 10*3/uL Normal 0.00-0.20 [facility] Comment on above: Performed By: #### L [id number] ####[facility] ([facility])[address] [place] [address] Basophils/100 WBC (Bld) 1.1 % High 0.0-1.0 [facility] Comment on above: Performed By: #### L [id number] ####[facility] ([facility])[address] [place] [address] Eosinophils (Bld) [#/Vol] 0.19 10*3/uL Normal 0.00-0.50 [facility] Comment on above: Performed By: #### L [id number] ####[facility] ([facility] [place] [address] Eosinophils/100 WBC (Bld) 2.7 % Normal 0.0-6.0 [facility] Comment on above: Performed By: #### L [id number] ####[facility] ([facility])[address] [place] [address] Erythrocyte distribution width (RBC) [Ratio] 16.6 % High 11.5-15.0 [facility] Comment on above: Performed By: #### L [id number] ####[facility] ([facility])[address] [place] [address] ERYTHROCYTE MEAN CORPUSCULAR HEMOGLOBIN CONCENTRATION (G/DL) BY AUTOMATED 30.1 g/dL Low 32.0-35.0 [facility] Comment on above: Performed By: #### L [id number] ####[facility] ([facility])[address] [place] [address] Hematocrit (Bld) [Volume fraction] 44.5 % Normal 39.0-55.0 [facility] Comment on above: Performed By: #### L [id number] ####[facility] ([facility])[address] [place] [address] Hemoglobin (Bld) [Mass/Vol] 13.4 g/dL Normal 13.0-17.0 [facility] Comment on above: Performed By: #### L [id number] ####[facility] ([facility])[address] [place] [address] Immature granulocytes (Bld) [#/Vol] 0.10 10*3/uL Normal 0.00-0.20 [facility] Comment on above: Performed By: #### L [id number] ####[facility] [place] [address] Immature granulocytes/100 WBC (Bld) 1.4 % High 0.0-1.0 [facility] Comment on above: Performed By: #### L [id number] ####[facility] [place] [address] Lymphocytes (Bld) [#/Vol] 0.90 10*3/uL Low 1.20-4.00 [facility] Comment on above: Performed By: #### L [id number] ####[facility] (BE[facility]ER)[address] [place] [address] Lymphocytes/100 WBC (Bld) 12.8 % Low 20.0-45.0 [facility] [facility] Comment on above: Performed By: #### L [id number] ####[facility] (BEAKER)[address] [place] [address] MCH (RBC) [Entitic mass] 26.9 pg Low 27.0-33.0 [facility] Comment on above: Performed By: #### L [id number] ####[facility] (BEAKER)[address] [place] [address] MCV (RBC) [Entitic vol] 89.4 fL Normal 82.0-98.0 [facility] Comment on above: Performed By: #### L [id number] ####[facility] (BEAKER)[address] [place] [address] Monocytes (Bld) [#/Vol] 0.60 10*3/uL Normal 0.10-1.00 [facility] Comment on above: Performed By: #### L [id number] ####[facility] (BEAKER)[address] [place] [address] Monocytes/100 WBC (Bld) 8.5 % Normal 5.0-12.0 [facility] Comment on above: Performed By: #### L [id number] ####[facility] (BEAKER)[address] [place] [address] Neutrophils (Bld) [#/Vol] 5.17 10*3/uL Normal 1.60-7.60 [facility] Comment on above: Performed By: #### L [id number] ####[facility] (BEAKER)[address] [place] [address] Neutrophils/100 WBC (Bld) 73.5 % High 40.0-72.0 [facility] Comment on above: Performed By: #### L [id number] ####[facility] (BEAKER)[address] [place] [address] NRBC (PER 100 WBCS) BY AUTOMATED COUNT 0.0 % Normal 0 [facility] Comment on above: Performed By: #### L [id number] ####[facility] ([facility])[address] [place] [address] PLATELETS (10*3/UL) IN BLOOD AUTOMATED COUNT 243 10*3/uL Normal 150-400 [facility] Comment on above: Performed By: #### L [id number] ####[facility] ([facility])[address] [place] [address] RBC (Bld) [#/Vol] 4.98 10*6/uL Normal 4.20-5.70 [facility] Comment on above: Performed By: #### L [id number] ####[facility] ([facility])[address] [address] WBC (Bld) [#/Vol] 7.04 10*3/uL Normal 4.00-10.60 [facility] Comment on above: Performed By: #### L [id number] ####[facility] ([facility])[address] [place] [address] SEDIMENTATION RATEon 025 SEDIMENTATION RATE, ERYTHROCYTE 54 mm/hr High <20 [facility] Comment on above: Performed By: #### L [id number] #### [facility] ([facility]) [address] [place] [address] VANCOMYCIN, PEAKon 5 VANCOMYCIN (UG/ML) IN SER/PLAS - PEAK 23.0 ug/mL Normal 20.0-50.0 [facility] Comment on above: Performed By: #### L [id number] #### [facility] ([facility]) [address] [address] VANCOMYCIN, TROUGHon 025 VANCOMYCIN (UG/ML) IN SER/PLAS - TROUGH 19.2 ug/mL Normal 5.0-20.0 [facility] Comment on above: Performed By: #### L [id number] #### [facility] (BEAKER) [address] [address] 36on 10-09-2024 36 Spoke with facility and patient was admitted back here at [facility] yesterday. They will call back if they need any orders. Normal [facility] BASIC METABOLIC PANELon - Anion gap [Moles/Vol] 9 mmol/L Normal 7- [facility] Comment on above: Performed By: #### L [id number] ####[facility] [place] [address] Calcium [Mass/Vol] 9.4 mg/dL Normal 8.6-10.3 [facility] Comment on above: Performed By: #### L [id number] ####[facility] ([facility])[address] [address] Chloride [Moles/Vol] 96 mmol/L Low 98-107 [facility] Comment on above: Performed By: #### L [id number] ####[facility] [place] [address] CO2 [Moles/Vol] 36 mmol/L High 21- [facility] Comment on above: Performed By: #### L [id number] ####[facility] [place] [address] Creatinine [Mass/Vol] 0.98 mg/dL Normal 0.70-1.30 [facility] Comment on above: Performed By: #### L [id number] ####[facility] [place] [address] GLOMERULAR FILTRATION RATE ML/MIN/1.73 SQ M.PREDICTED 91.1 mL/min/1.73m*2 Normal >60.0 [facility] Comment on above: Result Comment: [facility]???s estimated glomerular filtration rate (eGFR) will no [...] of individuals. Performed By: #### L [id number] ####[facility] ([facility])[address] [place] [address] Glucose [Mass/Vol] 90 mg/dL Normal 70-100 [facility] Comment on above: Performed By: #### L [id number] ####[facility] ([facility])[address] [place] [address] Potassium [Moles/Vol] 4.0 mmol/L Normal 3.5-5.1 [facility] Comment on above: Performed By: #### L [id number] ####[facility] ([facility])[address] [place] [address] Sodium [Moles/Vol] 137 mmol/L Normal 136-145 [facility] Comment on above: Performed By: #### L [id number] ####[facility] ([facility])[address] [place] [address] Urea nitrogen [Mass/Vol] 7 mg/dL Normal 7-25 [facility] Comment on above: Performed By: #### L [id number] ####[facility] [place] [address] UREA NITROGEN/CREATININE (MASS RATIO) IN SER/PLAS 7.1 Normal [facility] Comment on above: Performed By: #### L [id number] ####[facility] ([facility] [place] [address] CBCon 10-09-2024 Erythrocyte distribution width (RBC) [Ratio] 16.2 % High 11.5-15.0 [facility] Comment on above: Performed By: #### L [id number] #### [facility] [address] [place] [address] ERYTHROCYTE MEAN CORPUSCULAR HEMOGLOBIN CONCENTRATION (G/DL) BY AUTOMATED 30.5 g/dL Low 32.0-35.0 [facility] Comment on above: Performed By: #### L [id number] #### [facility] ([facility]) [address] [place] [address] Hematocrit (Bld) [Volume fraction] 42.0 % Normal 39.0-55.0 [facility] Comment on above: Performed By: #### L [id number] #### [facility] ([facility]) [address] [place] [address] Hemoglobin (Bld) [Mass/Vol] 12.8 g/dL Low 13.0-17.0 [facility] Comment on above: Performed By: #### L [id number] #### [facility] ([facility]) [address] [place] [address] MCH (RBC) [Entitic mass] 26.9 pg Low 27.0-33.0 [facility] Comment on above: Performed By: #### L [id number] #### [facility] ([facility]) [address] [place] [address] MCV (RBC) [Entitic vol] 88.2 fL Normal 82.0-98.0 [facility] Comment on above: Performed By: #### L [id number] #### [facility] ([facility]) [address] [place] [address] PLATELETS (10*3/UL) IN BLOOD AUTOMATED COUNT 240 10*3/uL Normal 150-400 [facility] Comment on above: Performed By: #### L [id number] #### [facility] ([facility]) [address] [place] [address] RBC (Bld) [#/Vol] 4.76 10*6/uL Normal 4.20-5.70 [facility] Comment on above: Performed By: #### L [id number] #### [facility] ([facility]) [address] [place] [address] WBC (Bld) [#/Vol] 8.22 10*3/uL Normal 4.00-10.60 [facility] Comment on above: Performed By: #### L [id number] #### [facility] ([facility]) [address] [place] [address] MAGNESIUMon 10-09-2024 Magnesium [Mass/Vol] 2.0 mg/dL Normal 1.9-2.7 [facility] Comment on above: Performed By: #### L [id number] #### [facility] ([facility]) [address] [place] [address] BLOOD CULTUREon 10-08-2024 Bacteria identified Cx Nom (Bld) No growth at 5 days Normal [facility] Comment on above: Performed By: #### L [id number] ####[facility] ([facility])[address] [place] [address] Order Comment: From a different site than #1. Performed By: #### L [id number] #### [facility] ([facility]) [address] [place] [address] C-REACTIVE PROTEINon 025 C REACTIVE PROTEIN (MG/L) IN SER/PLAS 26.6 mg/L High <=5.0 [facility] Comment on above: Result Comment: Test ing performed using a new methodology, turbidimetry. Normal ranges have been updated. Old normal range was <8 mg/L. Performed By: #### L [id number] ####[facility] ([facility])[address] [place] [address] CBC WITH AUTO DIFFERENTIALon 10-08-2024 Basophils (Bld) [#/Vol] 0.06 10*3/uL Normal 0.00-0.20 [facility] Comment on above: Performed By: #### L [id number] #### [facility] ([facility]) [address] [place] [address] Basophils/100 WBC (Bld) 0.8 % Normal 0.0-1.0 [facility] Comment on above: Performed By: #### L [id number] #### [facility] ([facility]) [address] [place] [address] Eosinophils (Bld) [#/Vol] 0.17 10*3/uL Normal 0.00-0.50 [facility] Comment on above: Performed By: #### L [id number] #### [facility] (BEAKER) [address] [place] [address] Eosinophils/100 WBC (Bld) 2.3 % Normal 0.0-6.0 [facility] Comment on above: Performed By: #### L [id number] #### [facility] ([facility]) [address] [place] [address] Erythrocyte distribution width (RBC) [Ratio] 16.0 % High 11.5-15.0 [facility] Comment on above: Performed By: #### L [id number] #### [facility] ([facility]) [address] [place] [address] ERYTHROCYTE MEAN CORPUSCULAR HEMOGLOBIN CONCENTRATION (G/DL) BY AUTOMATED 30.3 g/dL Low 32.0-35.0 [facility] Comment on above: Performed By: #### L [id number] #### [facility] ([facility]) [address] [place] [address] Hematocrit (Bld) [Volume fraction] 40.9 % Normal 39.0-55.0 [facility] Comment on above: Performed By: #### L [id number] #### [facility] (BEAKER) [address] [place] [address] Hemoglobin (Bld) [Mass/Vol] 12.4 g/dL Low 13.0-17.0 [facility] Comment on above: Performed By: #### L [id number] #### [facility] (BEAKER) [address] [place] [address] Immature granulocytes (Bld) [#/Vol] 0.10 10*3/uL Normal 0.00-0.20 [facility] Comment on above: Performed By: #### L [id number] #### [facility] (BEAKER) [address] [place] [address] Immature granulocytes/100 WBC (Bld) 1.4 % High 0.0-1.0 [facility] Comment on above: Performed By: #### L [id number] #### [facility] ([facility]) [address] [place] [address] Lymphocytes (Bld) [#/Vol] 0.73 10*3/uL Low 1.20-4.00 [facility] Comment on above: Performed By: #### L [id number] #### [facility] ([facility]) [address] [place] [address] Lymphocytes/100 WBC (Bld) 10.0 % Low 20.0-45.0 [facility] Comment on above: Performed By: #### L [id number] #### [facility] ([facility]) [address] [place] [address] MCH (RBC) [Entitic mass] 26.7 pg Low 27.0-33.0 [facility] Comment on above: Performed By: #### L [id number] #### [facility] ([facility]) [address] [place] [address] MCV (RBC) [Entitic vol] 88.0 fL Normal 82.0-98.0 [facility] Comment on above: Performed By: #### L [id number] #### [facility] ([facility]) [address] [place] [address] Monocytes (Bld) [#/Vol] 0.52 10*3/uL Normal 0.10-1.00 [facility] Comment on above: Performed By: #### L [id number] #### [facility] ([facility]) [address] [place] [address] Monocytes/100 WBC (Bld) 7.1 % Normal 5.0-12.0 [facility] Comment on above: Performed By: #### L [id number] #### [facility] ([facility]) [address] [place] [address] Neutrophils (Bld) [#/Vol] 5.73 10*3/uL Normal 1.60-7.60 [facility] Comment on above: Performed By: #### L [id number] #### [facility] ([facility]) [address] [place] [address] Neutrophils/100 WBC (Bld) 78.4 % High 40.0-72.0 [facility] Comment on above: Performed By: #### L [id number] #### [facility] ([facility]) [address] [place] [address] NRBC (PER 100 WBCS) BY AUTOMATED COUNT 0.0 % Normal 0 [facility] Comment on above: Performed By: #### L [id number] #### [facility] ([facility]) [address] [place] [address] PLATELETS (10*3/UL) IN BLOOD AUTOMATED COUNT 231 10*3/uL Normal 150-400 [facility] Comment on above: Performed By: #### L [id number] #### [facility] ([facility]) [address] [place] [address] RBC (Bld) [#/Vol] 4.65 10*6/uL Normal 4.20-5.70 [facility] Comment on above: Performed By: #### L [id number] #### [facility] ([facility]) [address] [place] [address] WBC (Bld) [#/Vol] 7.31 10*3/uL Normal 4.00-10.60 [facility] Comment on above: Performed By: #### L [id number] #### [facility] ([facility]) [address] [place] [address] COMPREHENSIVE METABOLIC PANE Clif 10-08-2024 Albumin [Mass/Vol] 3.7 g/dL Normal 3.5-5.7 [facility] Comment on above: Performed By: #### L [id number] #### [facility] [address] [place] [address] ALP [Catalytic activity/Vol] 130 U/L High 34-104 [facility] Comment on above: Performed By: #### L [id number] #### [facility] (BEAKER) [address] [place] [address] ALT [Catalytic activity/Vol] 14 U/L Normal 7-52 [facility] Comment on above: Performed By: #### L [id number] #### [facility] (BEAKER) [address] [place] [address] Anion gap [Moles/Vol] 9 mmol/L Normal 7-20 [facility] Comment on above: Performed By: #### L [id number] #### [facility] (BEAKER) [address] [place] [address] AST [Catalytic activity/Vol] 19 U/L Normal 13-39 [facility] Comment on above: Performed By: #### L [id number] #### [facility] [address] [place] [address] Bilirubin [Mass/Vol] 0.7 mg/dL Normal 0.3-1.0 [facility] Comment on above: Performed By: #### L [id number] #### [facility] [address] [place] [address] Calcium [Mass/Vol] 9.5 mg/dL Normal 8.6-10.3 [facility] Comment on above: Performed By: #### L [id number] #### [facility] ([facility] [address] [place] [address] Chloride [Moles/Vol] 99 mmol/L Normal 98-107 [facility] Comment on above: Performed By: #### L [id number] #### [facility] (BEAKER) [address] [place] [address] CO2 [Moles/Vol] 37 mmol/L High 21-31 [facility] Comment on above: Performed By: #### L [id number] #### [facility] ([facility]AKER) [address] [place] [address] Creatinine [Mass/Vol] 0.96 mg/dL Normal 0.70-1.30 [facility] Comment on above: Performed By: #### L [id number] #### [facility] ([facility]) [address] [place] [address] GLOMERULAR FILTRATION RATE ML/MIN/1.73 SQ M.PREDICTED 93.3 mL/min/1.73m*2 Normal >60.0 [facility] Comment on above: Result Comment: [facility]???s estimated glomerular filtration rate (eGFR) will no [...] individuals. Performed By: #### L [id number] #### [facility] ([facility]) [address] [place] [address] Glucose [Mass/Vol] 83 mg/dL Normal 70-100 [facility] Comment on above: Performed By: #### L [id number] #### [facility] ([facility]) [address] [place] [address] Potassium [Moles/Vol] 4.2 mmol/L Normal 3.5-5.1 [facility] Comment on above: Performed By: #### L [id number] #### [facility] ([facility]) [address] [place] [address] Protein [Mass/Vol] 7.1 g/dL Normal 6.0-8.3 [facility] Comment on above: Performed By: #### L [id number] #### [facility] ([facility]) [address] [place] [address] Sodium [Moles/Vol] 141 mmol/L Normal 136-145 [facility] Comment on above: Performed By: #### L [id number] #### [facility] ([facility]) [address] [place] [address] Urea nitrogen [Mass/Vol] 10 mg/dL Normal 7-25 [facility] Comment on above: Performed By: #### L [id number] #### [facility] ([place]) [address] [place] [address] UREA NITROGEN/CREATININE (MASS RATIO) IN SER/PLAS 10.4 Normal [facility] Comment on above: Performed By: #### L [id number] #### [facility] ([place]) [address] [place] [address] CONSULTon 10-08-2024 CONSULT -- Attestation signed by [...] mg ta (more content not included)... Normal [facility] EDNURSon 10-08-2024 EDNURS Arrival: transfer fr [facility] ED Complaint: cellulitis to right leg, hx surgery on 09/24 Notes: patient arrived on this day via [facility] from [facility] for pain to the right leg. Previous surgery at [facility] on 09/24 for right leg tib/fib fracture. Per [facility] staff, patient arrived with increased pain, redness and swelling to right lower extremity. Ultrasound was negative for DVT. [facility] ED treated for cellulitis, administered dose of zosyn at 0330, vancomycin at 2030 and 5mg oxycontin at 1930. Patient endorsed non-compliance, did not have post surgery follow up appointment and has been putting weight on leg. History of hypertension, patient O2 desat to 88% when sleeping. Per [facility], patient non-compliant with bipap. Upon arrival, patient endorsed pain 8/10 and nausea. Patient denied chest pain, fever, chills and shortness of breath. Normal [facility] EDPROVon 10-08-2024 EDPROV [facility] [address] [facility] [address] EMERGENCY DEPARTMENT ENCOUNTER CHIEF COMPLAINT Chief Complaint Patient presents with Cellulitis HISTORY OF PRESENT ILLNESS Matty Garces is a 54 y.o. male who presents with a Chief Complaint Patient presents with Cellulitis REVIEW OF SYSTEMS Review of Systems Musculoskeletal: Positive for arthralgias. Skin: Positive for rash. All other systems reviewed and are negative. The patient is a 54-year-old male who was transferred from [facility] for cellulitis involving recent right lower extremity surgery. Patient had surgical pair of a tibia fracture on September 24. The patient states that he went to [facility] emergency department today due to increased swelling. Patient was given Zosyn and vancomycin at [facility]. Patient states that he is having pain [...] distress. B (more content not included)... Normal [facility] MAGNESIUMon 10-08-2024 Magnesium [Mass/Vol] 1.8 mg/dL Low 1.9-2.7 [facility] Comment on above: Performed By: #### L [id number] #### [facility] ([facility]) [address] [place] [address] SEDIMENTATION RATEon 025 SEDIMENTATION RATE, ERYTHROCYTE 56 mm/hr High <20 [facility] Comment on above: Performed By: #### L [id number] #### [facility] (BEAKER) [address] [place] [address] VITAMIN D 25 HYDROXYon 10-08 CALCIDIOL (25 [place] VITAMIN D3) (NG/ML) IN SER/PLAS 37.0 ng/mL Normal 30.0-80.0 [facility] Comment on above: Result Comment: >80. 0 Toxicity possible Performed By: #### L [id number] ####[facility] ([facility])[address] [place] [address] 36on 10-04-2024 36 [facility] call ed and is seeing the patient for wound care, PT, and OT. Seeing patient a couple times a week could specify a number of times. States is also doing dressing changes. [phone] Normal [facility] Telephoneon 10-04-2024 Telephone [phone] Francisco Javier Garces 1970 M Date Provider Department Center 10/04/2024 [id number] [facility]ORM[facility] MP ORTHO MPORTHO No family history on file Reason for Visit and Comments: Information [Other] Normal [facility] 36on 09-29-2024 36 Patient in home PT called and wanted to confirm if Dr. Hahn does the in home therapy approvals/orders or if he had to follow up with his PCP, writer producer informed her he does. Patient is scheduled for 10/05/24. Normal [facility] BASIC METABOLIC PANELon 09-13 Anion gap [Moles/Vol] 7 mmol/L Normal 7-20 [facility] Comment on above: Performed By: #### L [id number] ####[facility] ([facility])[address] [place] [address] Calcium [Mass/Vol] 9.6 mg/dL Normal 8.6-10.3 [facility] Comment on above: Performed By: #### L [id number] ####[facility] ([facility])[address] [place] [address] Chloride [Moles/Vol] 98 mmol/L Normal 98-107 [facility] Comment on above: Performed By: #### L [id number] ####[facility] ([facility])[address] [place] [address] CO2 [Moles/Vol] 34 mmol/L High 21-31 [facility] Comment on above: Performed By: #### L [id number] ####[facility] ([facility])[address] [place] [address] Creatinine [Mass/Vol] 0.92 mg/dL Normal 0.70-1.30 [facility] Comment on above: Performed By: #### L [id number] ####[facility] ([facility])[address] [place] [address] GLOMERULAR FILTRATION RATE ML/MIN/1.73 SQ M.PREDICTED 98.9 mL/min/1.73m*2 Normal >60.0 [facility] Comment on above: Result Comment: The [facility]???s estimated glomerular filtration rate (eGFR) will no [...] of individuals. Performed By: #### L [id number] ####[facility] ([facility])[address] [place] [address] Glucose [Mass/Vol] 99 mg/dL Normal 70-100 [facility] Comment on above: Performed By: #### L [id number] ####[facility] ([facility])[address] [place] [address] Potassium [Moles/Vol] 4.3 mmol/L Normal 3.5-5.1 [facility] Comment on above: Performed By: #### L [id number] ####[facility] ([facility])[address] [place] [address] Sodium [Moles/Vol] 135 mmol/L Low 136-145 [facility] Comment on above: Performed By: #### L [id number] ####[facility] ([facility])[address] [place] [address] Urea nitrogen [Mass/Vol] 20 mg/dL Normal 7-25 [facility] Comment on above: Performed By: #### L [id number] ####[facility] ([facility])[address] [place] [address] UREA NITROGEN/CREATININE (MASS RATIO) IN SER/PLAS 21.7 Normal [facility] Comment on above: Performed By: #### L [id number] ####[facility] ([facility])[address] [place] [address] CBCon 09-28-2024 Erythrocyte distribution width (RBC) [Ratio] 15.3 % High 11.5-15.0 [facility] Comment on above: Performed By: #### L [id number] #### [facility] ([facility]) [address] [place] [address] ERYTHROCYTE MEAN CORPUSCULAR HEMOGLOBIN CONCENTRATION (G/DL) BY AUTOMATED 30.9 g/dL Low 32.0-35.0 [facility] Comment on above: Performed By: #### L [id number] #### [facility] ([facility]) [address] [place] [address] Hematocrit (Bld) [Volume fraction] 44.4 % Normal 39.0-55.0 [facility] Comment on above: Performed By: #### L [id number] #### [facility] ([facility]) [address] [place] [address] Hemoglobin (Bld) [Mass/Vol] 13.7 g/dL Normal 13.0-17.0 [facility] Comment on above: Performed By: #### L [id number] #### [facility] ([facility]) [address] [place] [address] MCH (RBC) [Entitic mass] 26.5 pg Low 27.0-33.0 [facility] Comment on above: Performed By: #### L [id number] #### [facility] ([facility]) [address] [place] [address] MCV (RBC) [Entitic vol] 85.9 fL Normal 82.0-98.0 [facility] Comment on above: Performed By: #### L [id number] #### [facility] ([facility]) [address] [place] [address] PLATELETS (10*3/UL) IN BLOOD AUTOMATED COUNT 208 10*3/uL Normal 150-400 [facility] Comment on above: Performed By: #### L [id number] #### [facility] ([facility]) [address] [place] [address] RBC (Bld) [#/Vol] 5.17 10*6/uL Normal 4.20-5.70 [facility] Comment on above: Performed By: #### L [id number] #### [facility] ([facility]) [address] [place] [address] WBC (Bld) [#/Vol] 10.65 10*3/uL High 4.00-10.60 [facility] Comment on above: Performed By: #### L [id number] #### [facility] ([place]) [address] [place] [address] CONSULTon 09-28-2024 CONSULT Patient tried CPAP i [...] Referrals/Orders: Yes, Sleep Time Spent: 20 Normal [facility] DSon 09-28-2024 DS Admission Admitted 09/23/2024 for Fall, syncope Comminuted right tib/fib fracture CHF HTN Hypomagnesemia Enlarged right hilar node Enlarged prostate Discharge Diagnosis Fall, syncope Comminuted right tib/fib fracture CHF HTN Hypomagnesemia Enlarged right hilar node Enlarged prostate Obstructive sleep apnea Morbid obesity Atrial flutter, new onset Discharge Disposition Home-Health Care [facility] (06) Discharge Medications Your medication list START [...] Medications These medications were sent to [facility] [place], [place] - [address] [place] [address], [facility] [address] acetaminophen 500 mg tablet aspirin 81 mg [...] patient refused this stating he already has [facility] set up and wants to go home. Vascular surgery was consulted for a chronic left foot ulcer. Pulmonary navigator was consulted for PATEL and recommended OP sleep study. On day of discharge, Trauma team was informed at approximately 1730 per [facility] that patient went into a-flutter and sustained for approximately 2 hours fro (more content not included)... Normal [facility] EDPROVon 09-28-2024 EDPROV This report has been cancelled. [facility] Letter (Out)on 09-28-2024 Letter (Out) [id number] Francisco Javier Garces 1970 M Date Provider Department Center 09/28/2024 [id number], GENERIC PRO*INIT None No family history on file [facility] MAGNESIUMon 09-28-2024 Magnesium [Mass/Vol] 2.0 mg/dL Normal 1.9-2.7 [facility] Comment on above: Performed By: #### L [id number] #### [facility] ([facility]) [address] [place] [address] NURSNOTEon 09-28-2024 NURSNOTE PT signed AMA paperwork with trama team. Pt left with belongings and family. AMA paperwork in patient chart. Normal [facility] PHOSPHORUSon 09-28-2024 Magnesium [Mass/Vol] 3.3 mg/dL Normal 2.5-5.0 [facility] Comment on above: Performed By: #### L [id number] ####[facility] ([facility])[address] [place] [address] 30on 09-27-2024 30 The patient is Moderately [...] barriers include continue medications as ordered Normal [facility] 30 Daily Case Managemen t Update Multidisciplinary rounds have been completed. Barriers to Discharge: Pending clinical course; POD3 IMN; 4L NC. Patient refusing CPaP at rest/sleep, Pulm brennen consulted and following. PT/OT recommending IPR, PMR consulted and recommend IPR. Patient and spouse would like to go home with [facility]. Referrals sent, pending accepting [facility] agency>>Radha Mendenhall [facility] accepting. NURY recommended--ariadna mo, bedside commode--scripts written and face to face notes signed.>>need sent to [email or web address] for fulfillment. SW following. Diet: Dietary Orders (From admission, onward) Start Ordered 09/27/24 08 Special Kitchen Request Once Comments: Please add regular coke to tray and bottled water Thank you 09/27/24 0844 09/27/24 0836 Special Kitchen Request Once Comments: Apple, banana, orange, blueberry muffin, butter, white toast, butter,coffee sugar cream, whole milk 09/27/24 0841 09/26/24 3241 Special Kitchen Request Once Comments: Whole apple, [...] R tib fib facrture Level of Consultation Developmental Therapist assumes full responsibility 09/23/24 1231 09/23/24 1221 [...] muscular skeletal surgical procedure 09/24/24 1242 Normal [facility] 30 The patient is Moderately Stable - [...] pain as ordered maintain safety precautions. Normal [facility] 30 The patient is Moderately Stable - [...] and behaviors that affect risk of falls [place] fall precautions as indicated by assessment Educate patient/family on patient safety, including physical limitations Instruct patient to call for assistance with activity based on assessment Modify environment to reduce risk of injury Normal [facility] BASIC METABOLIC PANELon 09-13 Anion gap [Moles/Vol] 9 mmol/L Normal 7-20 [facility] Comment on above: Performed By: #### L [id number] #### [facility] ([facility]) [address] [place] [address] Calcium [Mass/Vol] 9.3 mg/dL Normal 8.6-10.3 [facility] Comment on above: Performed By: #### L [id number] #### [facility] ([facility]) [address] [place] [address] Chloride [Moles/Vol] 99 mmol/L Normal 98-107 [facility] Comment on above: Performed By: #### L [id number] #### [facility] ([facility]) [address] [place] [address] CO2 [Moles/Vol] 33 mmol/L High 21-31 [facility] Comment on above: Performed By: #### L [id number] #### [facility] ([facility]) [address] [place] [address] Creatinine [Mass/Vol] 0.89 mg/dL Normal 0.70-1.30 [facility] Comment on above: Performed By: #### L [id number] #### [facility] ([facility]) [address] [place] [address] GLOMERULAR FILTRATION RATE ML/MIN/1.73 SQ M.PREDICTED 101.8 mL/min/1.73m*2 Normal >60.0 [facility] Comment on above: Result Comment: The [facility]???s estimated glomerular filtration rate (eGFR) will no [...] individuals. Performed By: #### L [id number] #### [facility] ([facility]) [address] [place] [address] Glucose [Mass/Vol] 95 mg/dL Normal 70-100 [facility] Comment on above: Performed By: #### L [id number] #### [facility] ([facility]) [address] [place] [address] Potassium [Moles/Vol] 4.1 mmol/L Normal 3.5-5.1 [facility] Comment on above: Performed By: #### L [id number] #### [facility] ([facility]) [address] [place] [address] Sodium [Moles/Vol] 137 mmol/L Normal 136-145 [facility] Comment on above: Performed By: #### L [id number] #### [facility] ([facility]) [address] [place] [address] Urea nitrogen [Mass/Vol] 17 mg/dL Normal 7-25 [facility] Comment on above: Performed By: #### L [id number] #### [facility] ([facility]) [address] [place] [address] UREA NITROGEN/CREATININE (MASS RATIO) IN SER/PLAS 19.1 Normal [facility] Comment on above: Performed By: #### L [id number] #### [facility] ([facility]) [address] [place] [address] CBCon 09-27-2024 Erythrocyte distribution width (RBC) [Ratio] 15.4 % High 11.5-15.0 [facility] Comment on above: Performed By: #### L [id number] #### [facility] ([facility]) [address] [place] [address] ERYTHROCYTE MEAN CORPUSCULAR HEMOGLOBIN CONCENTRATION (G/DL) BY AUTOMATED 30.8 g/dL Low 32.0-35.0 [facility] Comment on above: Performed By: #### L [id number] #### [facility] ([facility]) [address] [place] [address] Hematocrit (Bld) [Volume fraction] 45.5 % Normal 39.0-55.0 [facility] Comment on above: Performed By: #### L [id number] #### [facility] ([facility]) [address] [place] [address] Hemoglobin (Bld) [Mass/Vol] 14.0 g/dL Normal 13.0-17.0 [facility] Comment on above: Performed By: #### L [id number] #### [facility] ([facility]) [address] [place] [address] MCH (RBC) [Entitic mass] 26.5 pg Low 27.0-33.0 [facility] Comment on above: Performed By: #### L [id number] #### [facility] [address] [place] [address] MCV (RBC) [Entitic vol] 86.0 fL Normal 82.0-98.0 [facility] Comment on above: Performed By: #### L [id number] #### [facility] ([facility]) [address] [place] [address] PLATELETS (10*3/UL) IN BLOOD AUTOMATED COUNT 199 10*3/uL Normal 150-400 [facility] Comment on above: Performed By: #### L [id number] #### [facility] ([facility]) [address] [place] [address] RBC (Bld) [#/Vol] 5.29 10*6/uL Normal 4.20-5.70 [facility] Comment on above: Performed By: #### L [id number] #### [facility] ([facility]) [address] [place] [address] WBC (Bld) [#/Vol] 10.21 10*3/uL Normal 4.00-10.60 [facility] Comment on above: Performed By: #### L [id number] #### [facility] ([facility]) [address] [place] [address] MAGNESIUMon 09-27-2024 Magnesium [Mass/Vol] 1.9 mg/dL Normal 1.9-2.7 [facility] Comment on above: Performed By: #### L [id number] #### [facility] ([facility]) [address] [facility] [place] [address] PHOSPHORUSon 09-27-2024 Magnesium [Mass/Vol] 4.4 mg/dL Normal 2.5-5.0 [facility] Comment on above: Performed By: #### L [id number] #### [facility] ([facility]) [address] [place] [address] VENOUS BLOOD GAS WITH IONIZE D CALCIUMon 09-27-2024 Base excess Calc (BldV) [Moles/Vol] 9.2 mmol/L Normal [facility] Comment on above: Performed By: #### L [id number] ####[facility] [id number] [place] [address] [place] CALCIUM IONIZED (MMOL/L) IN BLOOD 1.27 mmol/L Normal 1.15-1.33 [facility] Comment on above: Performed By: #### L [id number] ####[facility] [id number] [place] [address] [facility] CO2 (BldV) [Partial pressure] 50 mm[Hg] Normal 40-50 [facility] Comment on above: Performed By: #### L [id number] ####[facility] [id number] [place] [address] [place] HCO3 (Bld) [Moles/Vol] 34.8 mmol/L Normal [facility] Comment on above: Performed By: #### L [id number] ####[facility] [id number] [place] [address] [facility] Oxygen (BldV) [Partial pressure] 53 mm[Hg] High 35-45 [facility] Comment on above: Performed By: #### L [id number] ####[facility] [id number] [place] [address] [facility] OXYGEN SATURATION (%) IN VENOUS BLOOD 87.1 % High 65.0-75.0 [facility] Comment on above: Performed By: #### L [id number] ####[facility] [id number] [place] [address] [facility] PH OF VENOUS BLOOD 7.45 High 7.31-7.41 [facility] Comment on above: Performed By: #### L [id number] ####[facility] [id number] [place] [address] [facility] BASIC METABOLIC PANELon 09-13 Anion gap [Moles/Vol] 8 mmol/L Normal 7-20 [facility] Comment on above: Performed By: #### L [id number] #### [facility] ([facility]) [address] [place] [address] Calcium [Mass/Vol] 9.4 mg/dL Normal 8.6-10.3 [facility] Comment on above: Performed By: #### L [id number] #### [facility] ([facility]) [address] [place] [address] Chloride [Moles/Vol] 99 mmol/L Normal 98-107 [facility] Comment on above: Performed By: #### L [id number] #### [facility] ([facility]) [address] [place] [address] CO2 [Moles/Vol] 36 mmol/L High 21-31 [facility] Comment on above: Performed By: #### L [id number] #### [facility] ([facility]) [address] [place] [address] Creatinine [Mass/Vol] 0.91 mg/dL Normal 0.70-1.30 [facility] Comment on above: Performed By: #### L [id number] #### [facility] ([facility]) [address] [place] [address] GLOMERULAR FILTRATION RATE ML/MIN/1.73 SQ M.PREDICTED 100.2 mL/min/1.73m*2 Normal >60.0 [facility] Comment on above: Result Comment: [facility]???s estimated glomerular filtration rate (eGFR) will no [...] individuals. Performed By: #### L [id number] #### [facility] ([facility]) [address] [place] [address] Glucose [Mass/Vol] 85 mg/dL Normal 70-100 [facility] Comment on above: Performed By: #### L [id number] #### [facility] ([facility]) [address] [place] [address] Potassium [Moles/Vol] 3.8 mmol/L Normal 3.5-5.1 [facility] Comment on above: Performed By: #### L [id number] #### [facility] ([facility]) [address] [place] [address] Sodium [Moles/Vol] 139 mmol/L Normal 136-145 [facility] Comment on above: Performed By: #### L [id number] #### [facility] ([facility]) [address] [place] [address] Urea nitrogen [Mass/Vol] 18 mg/dL Normal 7-25 [facility] Comment on above: Performed By: #### L [id number] #### [facility] [address] [place] [address] UREA NITROGEN/CREATININE (MASS RATIO) IN SER/PLAS 19.8 Normal [facility] Comment on above: Performed By: #### L [id number] #### [facility] [address] [place] [address] CBCon 09-26-2024 Erythrocyte distribution width (RBC) [Ratio] 15.4 % High 11.5-15.0 [facility] Comment on above: Performed By: #### L [id number] #### [facility] [address] [place] [address] ERYTHROCYTE MEAN CORPUSCULAR HEMOGLOBIN CONCENTRATION (G/DL) BY AUTOMATED 31.1 g/dL Low 32.0-35.0 [facility] Comment on above: Performed By: #### L [id number] #### [facility] [address] [place] [address] Hematocrit (Bld) [Volume fraction] 43.8 % Normal 39.0-55.0 [facility] Comment on above: Performed By: #### L [id number] #### [facility] ([facility]) [address] [place] [address] Hemoglobin (Bld) [Mass/Vol] 13.6 g/dL Normal 13.0-17.0 [facility] Comment on above: Performed By: #### L [id number] #### [facility] ([facility]) [address] [place] [address] MCH (RBC) [Entitic mass] 26.3 pg Low 27.0-33.0 [facility] Comment on above: Performed By: #### L [id number] #### [facility] ([facility]) [address] [place] [address] MCV (RBC) [Entitic vol] 84.7 fL Normal 82.0-98.0 [facility] Comment on above: Performed By: #### L [id number] #### [facility] ([facility]) [address] [place] [address] PLATELETS (10*3/UL) IN BLOOD AUTOMATED COUNT 186 10*3/uL Normal 150-400 [facility] Comment on above: Performed By: #### L [id number] #### [facility] ([facility]) [address] [place] [address] RBC (Bld) [#/Vol] 5.17 10*6/uL Normal 4.20-5.70 [facility] Comment on above: Performed By: #### L [id number] #### [facility] ([facility]) [address] [place] [address] WBC (Bld) [#/Vol] 9.63 10*3/uL Normal 4.00-10.60 [facility] Comment on above: Performed By: #### L [id number] #### [facility] ([facility]) [address] [place] [address] MAGNESIUMon 09-26-2024 Magnesium [Mass/Vol] 1.9 mg/dL Normal 1.9-2.7 [facility] Comment on above: Performed By: #### L [id number] #### [facility] ([facility]) [address] [place] [address] PHOSPHORUSon 09-26-2024 Magnesium [Mass/Vol] 2.6 mg/dL Normal 2.5-5.0 [facility] Comment on above: Performed By: #### L [id number] #### [facility] ([facility]) [address] [place] [address] 30on 09-25-2024 30 Problem: Pain - Adul [...] barriers include consult for respiratory therapy. Normal [facility] 30 Daily Case Managemen t Update Multidisciplinary [...] spouse would like to go home with [facility]. Referrals sent, pending accepting [facility] agency. DME recommended--gabrielle khalil, ariadna walker, bedside commode--scripts written and face to [...] R tib fib facrture Level of Consultation Developmental Therapist assumes full responsibility 09/23/24 1231 09/23/24 1221 [...] muscular skeletal surgical procedure 09/24/24 1242 Normal [facility] BASIC METABOLIC PANELon 09-13 Anion gap [Moles/Vol] 9 mmol/L Normal 7-20 [facility] Comment on above: Performed By: #### L [id number] ####[facility] ([facility])[address] [place] [address] Calcium [Mass/Vol] 8.9 mg/dL Normal 8.6-10.3 [facility] Comment on above: Performed By: #### L [id number] ####[facility] ([facility])[address] [place] [address] Chloride [Moles/Vol] 97 mmol/L Low 98-107 [facility] Comment on above: Performed By: #### L [id number] ####[facility] ([facility])[address] [place] [address] CO2 [Moles/Vol] 32 mmol/L High 21-31 [facility] Comment on above: Performed By: #### L [id number] ####[facility] ([facility]ER)[address] [place] [address] Creatinine [Mass/Vol] 0.91 mg/dL Normal 0.70-1.30 [facility] Comment on above: Performed By: #### L [id number] ####[facility] ([facility])[address] [place] [address] GLOMERULAR FILTRATION RATE ML/MIN/1.73 SQ M.PREDICTED 100.2 mL/min/1.73m*2 Normal >60.0 [facility] Comment on above: Result Comment: [facility]???s estimated glomerular filtration rate (eGFR) will no [...] of individuals. Performed By: #### L [id number] ####[facility] [place] [address] Glucose [Mass/Vol] 141 mg/dL High 70-100 [facility] Comment on above: Performed By: #### L [id number] ####[facility] ([facility])[address] [place] [address] Potassium [Moles/Vol] 4.2 mmol/L Normal 3.5-5.1 [facility] Comment on above: Performed By: #### L [id number] ####[facility] [place] [address] Sodium [Moles/Vol] 134 mmol/L Low 136-145 [facility] Comment on above: Performed By: #### L [id number] ####[facility] ([facility] [place] [address] Urea nitrogen [Mass/Vol] 15 mg/dL Normal 7-25 [facility] Comment on above: Performed By: #### L [id number] ####[facility] (BEAKER)[address] [place] [address] UREA NITROGEN/CREATININE (MASS RATIO) IN SER/PLAS 16.5 Normal [facility] Comment on above: Performed By: #### L [id number] ####[facility] (BEAKER)[address] [place] [address] CBCon 09-25-2024 Erythrocyte distribution width (RBC) [Ratio] 14.9 % Normal 11.5-15.0 [facility] Comment on above: Performed By: #### L [id number] #### [facility] (BEAKER) [address] [facility] [place] [address] ERYTHROCYTE MEAN CORPUSCULAR HEMOGLOBIN CONCENTRATION (G/DL) BY AUTOMATED 31.1 g/dL Low 32.0-35.0 [facility] Comment on above: Performed By: #### L [id number] #### [facility] ([facility]) [address] [place] [address] Hematocrit (Bld) [Volume fraction] 45.4 % Normal 39.0-55.0 [facility] Comment on above: Performed By: #### L [id number] #### [facility] ([facility]) [address] [place] [address] Hemoglobin (Bld) [Mass/Vol] 14.1 g/dL Normal 13.0-17.0 [facility] Comment on above: Performed By: #### L [id number] #### [facility] ([facility]) [address] [place] [address] MCH (RBC) [Entitic mass] 26.3 pg Low 27.0-33.0 [facility] Comment on above: Performed By: #### L [id number] #### [facility] ([facility]) [address] [place] [address] MCV (RBC) [Entitic vol] 84.5 fL Normal 82.0-98.0 [facility] Comment on above: Performed By: #### L [id number] #### [facility] ([facility]) [address] [place] [address] PLATELETS (10*3/UL) IN BLOOD AUTOMATED COUNT 205 10*3/uL Normal 150-400 [facility] Comment on above: Performed By: #### L [id number] #### [facility] ([facility]) [address] [place] [address] RBC (Bld) [#/Vol] 5.37 10*6/uL Normal 4.20-5.70 [facility] Comment on above: Performed By: #### L [id number] #### [facility] ([facility]) [address] [place] [address] WBC (Bld) [#/Vol] 14.37 10*3/uL High 4.00-10.60 [facility] Comment on above: Performed By: #### L [id number] #### [facility] ([facility]) [address] [place] [address] MAGNESIUMon 09-25-2024 Magnesium [Mass/Vol] 2.1 mg/dL Normal 1.9-2.7 [facility] Comment on above: Performed By: #### L [id number] ####[facility] ([facility])[address] [place] [address] NURSNOTEon 09-25-2024 NURSNOTE Trauma RN met adrian dunham at bedside and provided the Trauma Services Patient Brochure. Patient will follow-up with Orthopedics 10/05/2024 at 0900. No further needs currently. Normal [facility] PHOSPHORUSon 09-25-2024 Magnesium [Mass/Vol] 2.8 mg/dL Normal 2.5-5.0 [facility] Comment on above: Performed By: #### L [id number] ####[facility] ([facility])[address] [place] [address] 30on 09-24-2024 30 The patient is Moderately [...] Free from fall injury Outcome: Progressing Normal [facility] BASIC METABOLIC PANELon 09-13 Anion gap [Moles/Vol] 8 mmol/L Normal 7-20 [facility] Comment on above: Performed By: #### L [id number] ####[facility] ([facility])[address] [place] [address] Calcium [Mass/Vol] 9.1 mg/dL Normal 8.6-10.3 [facility] Comment on above: Performed By: #### L [id number] ####[facility] (BEAKER)[address] [place] [address] Chloride [Moles/Vol] 98 mmol/L Normal 98-107 [facility] Comment on above: Performed By: #### L [id number] ####[facility] (BEAKER)[address] [place] [address] CO2 [Moles/Vol] 35 mmol/L High 21-31 [facility] Comment on above: Performed By: #### L [id number] ####[facility] ([facility])[address] [place] [address] Creatinine [Mass/Vol] 1.02 mg/dL Normal 0.70-1.30 [facility] Comment on above: Performed By: #### L [id number] ####[facility] ([facility])[address] [place] [address] GLOMERULAR FILTRATION RATE ML/MIN/1.73 SQ M.PREDICTED 87.3 mL/min/1.73m*2 Normal >60.0 [facility] Comment on above: Result Comment: The [facility]???s estimated glomerular filtration rate (eGFR) will no [...] of individuals. Performed By: #### L [id number] ####[facility] (BEAKER)[address] [place] [address] Glucose [Mass/Vol] 103 mg/dL High 70-100 [facility] Comment on above: Performed By: #### L [id number] ####[facility] (BEAKER)[address] [place] [address] Potassium [Moles/Vol] 4.2 mmol/L Normal 3.5-5.1 [facility] Comment on above: Performed By: #### L [id number] ####[facility] (BEAKER)[address] [place] [address] Sodium [Moles/Vol] 137 mmol/L Normal 136-145 [facility] Comment on above: Performed By: #### L [id number] ####[facility] (BEAKER)[address] [place] [address] Urea nitrogen [Mass/Vol] 11 mg/dL Normal 7-25 [facility] Comment on above: Performed By: #### L [id number] ####[facility] (BEAKER)[address] [place] [address] UREA NITROGEN/CREATININE (MASS RATIO) IN SER/PLAS 10.8 Normal [facility] Comment on above: Performed By: #### L [id number] ####[facility] (BEAKER)[address] [place] [address] CBCon 09-24-2024 Erythrocyte distribution width (RBC) [Ratio] 15.5 % High 11.5-15.0 [facility] Comment on above: Performed By: #### L [id number] #### [facility] ([facility]) [address] [place] [address] ERYTHROCYTE MEAN CORPUSCULAR HEMOGLOBIN CONCENTRATION (G/DL) BY AUTOMATED 30.4 g/dL Low 32.0-35.0 [facility] Comment on above: Performed By: #### L [id number] #### [facility] (BEAKER) [address] [place] [address] Hematocrit (Bld) [Volume fraction] 46.4 % Normal 39.0-55.0 [facility] Comment on above: Performed By: #### L [id number] #### [facility] (BEAKER) [address] [place] [address] Hemoglobin (Bld) [Mass/Vol] 14.1 g/dL Normal 13.0-17.0 [facility] Comment on above: Performed By: #### L [id number] #### [facility] (BEAKER) [address] [place] [address] MCH (RBC) [Entitic mass] 26.4 pg Low 27.0-33.0 [facility] Comment on above: Performed By: #### L [id number] #### [facility] ([facility]) [address] [place] [address] MCV (RBC) [Entitic vol] 86.7 fL Normal 82.0-98.0 [facility] Comment on above: Performed By: #### L [id number] #### [facility] ([facility]) [address] [place] [address] PLATELETS (10*3/UL) IN BLOOD AUTOMATED COUNT 175 10*3/uL Normal 150-400 [facility] Comment on above: Performed By: #### L [id number] #### [facility] ([facility]) [address] [place] [address] RBC (Bld) [#/Vol] 5.35 10*6/uL Normal 4.20-5.70 [facility] Comment on above: Performed By: #### L [id number] #### [facility] ([facility]) [address] [place] [address] WBC (Bld) [#/Vol] 7.56 10*3/uL Normal 4.00-10.60 [facility] Comment on above: Performed By: #### L [id number] #### [facility] ([facility]) [address] [place] [address] CONSULTon 09-24-2024 CONSULT Physical Medicine an d Rehabilitation Consult Note Patient not staffed by PM&R today due to surgery today for IMN placement. Our team will staff tomorrow, 09/25/23. Silvia Zaldivar MD Normal [facility] MAGNESIUMon 09-24-2024 Magnesium [Mass/Vol] 2.2 mg/dL Normal 1.9-2.7 [facility] Comment on above: Performed By: #### L [id number] #### [facility] ([facility]) [address] [place] [address] OPNOTEon 09-24-2024 OPNOTE -- Attestation signed by [...] Operative Note Date: 09/23/2024 - 09/24/2024 Location: [facility] OR Name: Matty Dunham Mili, : 1970, Diagnosis Pre-op Diagnosis * Closed fracture of right tibia and fibula, initial encounter [S82.201A, S82.401A] * Fall at home, initial encounter [W19.XXXA, Y92.009] Post-op Diagnosis * Closed fracture of right tibia and fibula, initial encounter [S82.201A, S82.401A] * Fall at home, initial encounter [W19.XXXA, Y92.009] Procedures Treatment of right tibial shaft fracture by intramedullary implant with interlocking screws [CPT: 07319] Stress exam of right ankle under anesthesia [CPT: 80245] Intraoperative use of fluoroscopy less than 1 hour by physician [CPT: 40069] Surgeons Primary: Sandrine Hahn MD Resident - Assisting: Bienvenido Trinidad MD; Luis Felipe Rivas MD; Gina Alavrez MD Procedure Summary Anesthesia: General ASA: III [...] mm x 34 mm interlocking screw Staff: Dial Marker: Emi Francis RN Flow Machine Operator: CHARLINE Montejo Scrub Person: Araseli Butler CST Indications: Matty Garces is an 53 y.o. male who presented as a transfer from [facility] on 09/23/[facility]. Patient was transferred due to findings of a right distal third tibial shaft fracture after a fall in the shower. The fracture was closed and was subsequently reduced and splinted at [place] in a long-leg splint. Patient made stable [...] soft t (more content not included)... Normal [facility] PHOSPHORUSon 09-24-2024 Magnesium [Mass/Vol] 4.0 mg/dL Normal 2.5-5.0 [facility] Comment on above: Performed By: #### L [id number] #### [facility] ([facility]) [address] [place] [address] POCT GLUCOSE METER UNSOLICIT ED RESULTSon 09-24-2024 Glucose [Mass/Vol] 100 mg/dL Normal 70-105 [facility] Comment on above: Order Comment: Waive d Testing in the ED is performed under the ED CLIA certificate #[id number]. Result Comment: asor ia3 Performed By: #### L [id number] #### [facility] ([facility]) [address] [place] [address] APTTon 09-23-2024 ACTIVATED PARTIAL THROMBOPLASTIN TIME IN PPP BY COAGULATION ASSAY 31.2 Seconds Normal 25.0-35.0 [facility] Comment on above: Result Comment: Clin ical significance of the APTT is questionable in the presence of heparin. Performed By: #### L [id number] ####[facility] ([facility])[address] [place] [address] CBC WITH AUTO DIFFERENTIALon 09-23-2024 Basophils (Bld) [#/Vol] 0.05 10*3/uL Normal 0.00-0.20 [facility] Comment on above: Performed By: #### L [id number] ####[facility] (BEAKER)[address] [place] [address] Basophils/100 WBC (Bld) 0.5 % Normal 0.0-1.0 [facility] Comment on above: Performed By: #### L [id number] ####[facility] (BEAKER)[address] [place] [address] Eosinophils (Bld) [#/Vol] 0.11 10*3/uL Normal 0.00-0.50 [facility] Comment on above: Performed By: #### L [id number] ####[facility] (BEAKER)[address] [place] [address] Eosinophils/100 WBC (Bld) 1.0 % Normal 0.0-6.0 [facility] Comment on above: Performed By: #### L [id number] ####[facility] (BEAKER)[address] [place] [address] Erythrocyte distribution width (RBC) [Ratio] 15.9 % High 11.5-15.0 [facility] Comment on above: Performed By: #### L [id number] ####[facility] (BEAKER)[address] [place] [address] ERYTHROCYTE MEAN CORPUSCULAR HEMOGLOBIN CONCENTRATION (G/DL) BY AUTOMATED 30.3 g/dL Low 32.0-35.0 [facility] Comment on above: Performed By: #### L [id number] ####[facility] (BEAKER)[address] [place] [address] Hematocrit (Bld) [Volume fraction] 47.8 % Normal 39.0-55.0 [facility] Comment on above: Performed By: #### L [id number] ####[facility] (BEAKER)[address] [place] [address] Hemoglobin (Bld) [Mass/Vol] 14.5 g/dL Normal 13.0-17.0 [facility] Comment on above: Performed By: #### L [id number] ####[facility] (BEAKER)[address] [place] [address] Immature granulocytes (Bld) [#/Vol] 0.10 10*3/uL Normal 0.00-0.20 [facility] Comment on above: Performed By: #### L [id number] ####[facility] ([facility])[address] [place] [address] Immature granulocytes/100 WBC (Bld) 0.9 % Normal 0.0-1.0 [facility] Comment on above: Performed By: #### L [id number] ####[facility] ([facility])[address] [place] [address] Lymphocytes (Bld) [#/Vol] 0.74 10*3/uL Low 1.20-4.00 [facility] Comment on above: Performed By: #### L [id number] ####[facility] ([facility])[address] [place] [address] Lymphocytes/100 WBC (Bld) 7.0 % Low 20.0-45.0 [facility] Comment on above: Performed By: #### L [id number] ####[facility] ([facility])[address] [place] [address] MCH (RBC) [Entitic mass] 26.4 pg Low 27.0-33.0 [facility] Comment on above: Performed By: #### L [id number] ####[facility] [place] [address] MCV (RBC) [Entitic vol] 87.1 fL Normal 82.0-98.0 [facility] Comment on above: Performed By: #### L [id number] ####[facility] (BEAKER)[address] [place] [address] Monocytes (Bld) [#/Vol] 0.73 10*3/uL Normal 0.10-1.00 [facility] Comment on above: Performed By: #### L [id number] ####[facility] (BEAKER)[address] [place] [address] Monocytes/100 WBC (Bld) 6.9 % Normal 5.0-12.0 [facility] Comment on above: Performed By: #### L [id number] ####[facility] (BEAKER)[address] [place] [address] Neutrophils (Bld) [#/Vol] 8.83 10*3/uL High 1.60-7.60 [facility] Comment on above: Performed By: #### L [id number] ####[facility] (BEAKER)[address] [place] [address] Neutrophils/100 WBC (Bld) 83.7 % High 40.0-72.0 [facility] Comment on above: Performed By: #### L [id number] ####[facility] (BEAKER)[address] [place] [address] NRBC (PER 100 WBCS) BY AUTOMATED COUNT 0.0 % Normal 0 [facility] Comment on above: Performed By: #### L [id number] ####[facility] (BEAKER)[address] [place] [address] PLATELETS (10*3/UL) IN BLOOD AUTOMATED COUNT 188 10*3/uL Normal 150-400 [facility] Comment on above: Performed By: #### L [id number] ####[facility] (BEAKER)[address] [place] [address] RBC (Bld) [#/Vol] 5.49 10*6/uL Normal 4.20-5.70 [facility] Comment on above: Performed By: #### L [id number] ####[facility] (BEAKER)[address] [place] [address] WBC (Bld) [#/Vol] 10.56 10*3/uL Normal 4.00-10.60 [facility] Comment on above: Performed By: #### L [id number] ####[facility] (BEAKER)[address] [place] [address] COMPREHENSIVE METABOLIC PANE Clif 09-23-2024 Albumin [Mass/Vol] 3.9 g/dL Normal 3.5-5.7 [facility] Comment on above: Performed By: #### L [id number] ####[facility] (BEAKER)[address] [place] [address] ALP [Catalytic activity/Vol] 98 U/L Normal 34-104 [facility] Comment on above: Performed By: #### L [id number] ####[facility] (BEAKER)[address] [place] [address] ALT [Catalytic activity/Vol] 34 U/L Normal 7-52 [facility] Comment on above: Performed By: #### L [id number] ####[facility] (BEAKER)[address] [place] [address] Anion gap [Moles/Vol] 11 mmol/L Normal 7-20 [facility] Comment on above: Performed By: #### L [id number] ####[facility] (BEAKER)[address] [place] [address] AST [Catalytic activity/Vol] 63 U/L High 13-39 [facility] Comment on above: Performed By: #### L [id number] ####[facility] (BEAKER)[address] [place] [address] Bilirubin [Mass/Vol] 0.7 mg/dL Normal 0.3-1.0 [facility] Comment on above: Performed By: #### L [id number] ####[facility] (BEAKER)[address] [place] [address] Calcium [Mass/Vol] 8.9 mg/dL Normal 8.6-10.3 [facility] Comment on above: Performed By: #### L [id number] ####[facility] (BEAKER)[address] [place] [address] Chloride [Moles/Vol] 101 mmol/L Normal 98-107 [facility] Comment on above: Performed By: #### L [id number] ####[facility] (BEAKER)[address] [place] [address] CO2 [Moles/Vol] 27 mmol/L Normal 21-31 [facility] Comment on above: Performed By: #### L [id number] ####[facility] (BEAKER)[address] [place] [address] Creatinine [Mass/Vol] 0.96 mg/dL Normal 0.70-1.30 [facility] Comment on above: Performed By: #### L [id number] ####[facility] (BEAKER)[address] [place] [address] GLOMERULAR FILTRATION RATE ML/MIN/1.73 SQ M.PREDICTED 93.9 mL/min/1.73m*2 Normal >60.0 [facility] Comment on above: Result Comment: [facility]???s estimated glomerular filtration rate (eGFR) will no [...] of individuals. Performed By: #### L [id number] ####[facility] (BEAKER)[address] [place] [address] Glucose [Mass/Vol] 93 mg/dL Normal 70-100 [facility] Comment on above: Performed By: #### L [id number] ####[facility] (BEAKER)[address] [place] [address] Potassium [Moles/Vol] 4.3 mmol/L Normal 3.5-5.1 [facility] Comment on above: Performed By: #### L [id number] ####[facility] (BEAKER)[address] [place] [address] Protein [Mass/Vol] 7.2 g/dL Normal 6.0-8.3 [facility] Comment on above: Performed By: #### L [id number] ####[facility] [place] [address] Sodium [Moles/Vol] 135 mmol/L Low 136-145 [facility] Comment on above: Performed By: #### L [id number] ####[facility] ([facility])[address] [place] [address] Urea nitrogen [Mass/Vol] 8 mg/dL Normal 7-25 [facility] Comment on above: Performed By: #### L [id number] ####[facility] ([facility])[address] [place] [address] UREA NITROGEN/CREATININE (MASS RATIO) IN SER/PLAS 8.3 Normal [facility] Comment on above: Performed By: #### L [id number] ####[facility] ([facility])[address] [place] [address] CONSULTon 09-23-2024 CONSULT -- Attestation signed by [...] single view chest Electronically signed: Fahad Cutler XR tibia fibula 2 views right Result Date: 09/23/2024 As above Electronically signed: Fahad Cutler CT abdomen pelvis w IV contrast Result [...] Alvarez MD Orthopaedic Surgery, Resident Ortho Pager [phone] 09/23/24 6:55 PM May contact the on-call resident with any concerns via the Orthopaedic pager at any time. Normal [facility] CT ABDOMEN PELVIS W IV CONTR Barak [...] advised. * Electronically signed: Fahad Frazier. Normal [facility] CT CERVICAL SPINE WO IV CONT RASTon [...] nor listhesis. Electronically signed: Fahad Frazier. Normal [facility] CT CHEST W IV CONTRASTon CT CHEST [...] is recommended. Electronically signed: Fahad Frazier. Normal [facility] CT HEAD WO IV CONTRASTon CT HEAD [...] brain * Electronically signed: Fahad Frazier. Normal [facility] CT TIBIA FIBULA RIGHT WO IV CONTRASTon [...] the knee Electronically signed: Fahad Frazier. Normal [facility] EDNURSon 09-23-2024 EDNURS Mode of arrival (squ ad #, walk in, police, etc): SEMS Chief complaint(s): Right leg fracture Arrival Note (brief scenario, treatment DRAWING BOX TENDER, etc): Patient arrives via [facility] from [facility] to be seen by orthopedics for Right tib-fib fracture. Patient arrives with Rt leg splinted Normal [facility] EDPROVon 09-23-2024 EDPROV History of Present Illness Chief Complaint Patient presents with Leg Injury Initial evaluation completed by Dr. Lang. Matty Garces is a 53 y/o male presenting to the ED with c/o leg injury. Pt was transferred from [facility] for right distal tibfib fracture. Pt [...] what they are. History provided by: Patient [place] Coma Scale Score: 15 History Past Medical [...] Procedure Abnormality Status --------- ------ CBC auto differential[[id number]] Abnormal Final result Please view results for these tests on the individual orders. TYPE AND SCREEN ABO G (more content not included)... Normal [facility] ETHANOLon 09-23-2024 ETHANOL (MG/DL) IN SER/PLAS <10 Normal <10 [facility] Comment on above: Performed By: #### L [id number] #### [facility] (BEAKER) [address] [place] [address] ETHANOL CALCULATED (%) <0.01 Normal [facility] Comment on above: Performed By: #### L [id number] #### [facility] ([place]) [address] [place] [address] HPon 09-23-2024 [facility] Trauma Surgery Chief Complaint: Trauma Fall Mechanism of Injury: 53 y.o. year old male who was brought in via EMS. He had no C-collar or back board in place. Circumstances of injury: Patient states that he was recently admitted to [place] for cellulitis to the [facility], he was discharged yesterday and this morning was home, he got out of bed to take a shower and had a micro seizure and heard his right ankle snap. Denies hitting head or LOC but admits that he doesn't remember the whole event. He went back to [place] ED where a right tib/fib fracture was found and patient was transferred to [facility] Of note patient is on anticoagulant/antiplat elets. Baby aspirin, however he was receiving Shots to prevent blood clots while inpatient at [place] Review of Systems: General: No For Chills, [...] Marijuana. Family History: pulled available information in [facility] from previous visits No family history on file. Objective Vitals: BP: (145-164)/(86-96) 149/86 (01/11 1145) Systolic BP Percentile: -- Diastolic BP [...] Neck: Cervica (more content not included)... Normal [facility] LACTIC ACID, PLASMAon 2024 LACTATE (MMOL/L) IN SER/PLAS 0.6 mmol/L Normal 0.5-2.2 [facility] Comment on above: Performed By: #### L [id number] #### [facility] (BEAKER) [address] [place] [address] MAGNESIUMon 09-23-2024 Magnesium [Mass/Vol] 1.8 mg/dL Low 1.9-2.7 [facility] Comment on above: Performed By: #### L [id number] ####[facility] (BEAKER)[address] [place] [address] PHOSPHORUSon 09-23-2024 Magnesium [Mass/Vol] 3.5 mg/dL Normal 2.5-5.0 [facility] Comment on above: Performed By: #### L [id number] #### [facility] ([employer]) [address] [place] [address] PROTIME-INRon 09-23-2024 INR IN PPP BY COAGULATION ASSAY 1.28 High 0.90-1.10 [facility] Comment on [...] 1995;108:231S-246S. Performed By: #### L [id number] #### [facility] ([employer]) [address] [place] [address] PROTHROMBIN TIME (PT) IN PPP BY COAGULATION ASSAY 15.9 Seconds High 12.3-14.8 [facility] Comment on above: Performed By: #### L [id number] #### [facility] ([employer]) [address] [place] [address] TOXICOLOGY PANEL URINEon AMPHETAMINE+METHAMPH ETAMINE SCREEN (PRESENCE) IN URINE Negative Normal Negative [facility] Comment on above: Performed By: #### L [id number] #### [facility] ([employer]) [address] [place] [address] BARBITURATES PRESENCE IN URINE BY SCREEN METHOD Negative Normal Negative [facility] Comment on above: Performed By: #### L [id number] #### [facility] [address] [place] [address] Benzodiazepines Ql (U) Negative Normal Negative [facility] Comment on above: Performed By: #### L [id number] #### [facility] [address] [place] [address] CANNABINOID (PRESENCE) IN URINE BY SCREEN METHOD Negative Normal Negative [facility] Comment on above: Performed By: #### L [id number] #### [facility] ([facility]) [address] [place] [address] Cocaine Ql (U) Negative Normal Negative [facility] Comment on above: Performed By: #### L [id number] #### [facility] ([facility]) [address] [place] [address] METHADONE (PRESENCE) IN URINE BY SCREEN METHOD Negative Normal Negative [facility] Comment on above: Performed By: #### L [id number] #### [facility] ([facility]) [address] [place] [address] OPIATES (PRESENCE) IN URINE BY SCREEN METHOD Positive Abnormal Negative [facility] Comment on above: Performed By: #### L [id number] #### [facility] ([facility]) [address] [place] [address] PHENCYCLIDINE PRESENCE IN URINE BY SCREEN METHOD Negative Normal Negative [facility] Comment on above: Performed By: #### L [id number] #### [facility] (BEAKER) [address] [place] [address] Propoxyphene Screen Ql (U) Negative Normal Negative [facility] Comment on above: Performed By: #### L [id number] #### [facility] ([facility] [address] [place] [address] TRICYCLIC ANTIDEPRESSANTS (PRESENCE) IN URINE Negative Normal Negative [facility] Comment on above: Performed By: #### L [id number] #### [facility] (BEAKER) [address] [place] [address] TROPONIN Ion 09-23-2024 Troponin I.cardiac [Mass/Vol] 0.01 ng/mL Normal 0.00-0.04 [facility] Comment on above: Performed By: #### L AB46 #### [facility] ([facility]) [address] [place] [address] TYPE AND SCREENon 09-23-2024 AB SCREEN Negative Normal [facility] Comment on above: Performed By: #### L AB46 #### [facility] ([facility]) [address] [place] [address] ABO group Nom (Bld) A Normal [facility] Comment on above: Performed By: #### L [id number] #### [facility] ([facility]) [address] [place] [address] RH TYPE IN BLOOD Positive Normal [facility] Comment on above: Performed By: #### L AB46 #### [facility] ([facility]) [address] [place] [address] URINALYSISon 09-23-2024 BILIRUBIN, TOTAL PRESENCE IN URINE Negative Normal Negative [facility] Comment on above: Order Comment: Micro scopics not performed on urines with negative chemical reactions unless requested on original order. Performed By: #### L [id number] ####[facility] ([facility])[address] [place] [address] Clarity (U) Clear Normal Clear [facility] Comment on above: Order Comment: Micro scopics not performed on urines with negative chemical reactions unless requested on original order. Performed By: #### L [id number] ####[facility] ([facility])[address] [place] [address] Color (U) Yellow Normal Colorless, Yellow, Light-Yellow [facility] Comment on above: Order Comment: Micro scopics not performed on urines with negative chemical reactions unless requested on original order. Performed By: #### L [id number] ####[facility] ([facility])[address] [place] [address] GLUCOSE (MG/DL) IN URINE Normal Normal Normal [facility] Comment on above: Order Comment: Micro scopics not performed on urines with negative chemical reactions unless requested on original order. Performed By: #### L [id number] ####[facility] ([facility])[address] [place] [address] HEMOGLOBIN PRESENCE IN URINE Negative Normal Negative [facility] Comment on above: Order Comment: Micro scopics not performed on urines with negative chemical reactions unless requested on original order. Performed By: #### L [id number] ####[facility] ([facility])[address] [place] [address] Ketones Ql (U) Negative Normal Negative [facility] Comment on above: Order Comment: Micro scopics not performed on urines with negative chemical reactions unless requested on original order. Performed By: #### L [id number] ####[facility] ([facility])[address] [place] [address] LEUKOCYTE ESTERASE PRESENCE IN URINE BY TEST STRIP Negative Normal Negative [facility] Comment on above: Order Comment: Micro scopics not performed on urines with negative chemical reactions unless requested on original order. Performed By: #### L [id number] ####[facility] ([facility])[address] [place] [address] NITRITE PRESENCE IN URINE Negative Normal Negative [facility] Comment on above: Order Comment: Micro scopics not performed on urines with negative chemical reactions unless requested on original order. Performed By: #### L [id number] ####[facility] ([facility])[address] [place] [address] pH (U) 6.0 [pH] Normal 5.0-8.0 [facility] Comment on above: Order Comment: Micro scopics not performed on urines with negative chemical reactions unless requested on original order. Performed By: #### L [id number] ####[facility] ([facility])[address] [place] [address] Protein (U) [Mass/Vol] Negative Normal Negative [facility] Comment on above: Order Comment: Micro scopics not performed on urines with negative chemical reactions unless requested on original order. Performed By: #### L [id number] ####[facility] ([facility])[address] [place] [address] Specific gravity (U) [Rel density] 1.050 High 1.010-1.030 [facility] Comment on above: Order Comment: Micro scopics not performed on urines with negative chemical reactions unless requested on original order. Performed By: #### L [id number] ####[facility] ([facility])[address] [place] [address] UROBILINOGEN (MG/DL) IN URINE Normal Normal Normal [facility] Comment on above: Order Comment: Micro scopics not performed on urines with negative chemical reactions unless requested on original order. Performed By: #### L [id number] ####[facility] ([facility])[address] [place] [address] VITAMIN D 25 HYDROXYon 09-23 CALCIDIOL (25 [place] VITAMIN D3) (NG/ML) IN SER/PLAS 42.6 ng/mL Normal 30.0-80.0 [facility] Comment on above: Result Comment: >80. 0 Toxicity possible Performed By: #### L [id number] #### [facility] ([facility]) [address] [place] [address] Superficial Wound Cultureon 09-21-2024 Superficial Wound Culture [...] RESISTANT TO ALL B-LACTAM DRUGS. PERFORMED BY: [place] [id number] PATHOLOGIST [employer] STEVE ANGEL M.D. Normal [facility] Comment on above: Performed By: #### C USUP #### [place] [id number] [facility] CT CSPINE WO CONon CT CSPINE WO [...] by: ANGEL SAID Date: 2022-12-06 06:37 Normal [facility] CT FACIAL BONES WO CONon [...] ANGEL SAID Date: 2022-12-06 06:41 Normal [facility] CT HEAD WO CONon 12-06-2022 [...] ANGEL JORDAN Date: 2022-12-06 06:39 Normal [facility] XR ELBOW RT MIN 3 VIEWSon XR ELBOW RT MIN 3 VIEWS Exam: Radiographs: XR ELBOW RT MIN 3 VIEWS Reason for exam: Elbow pain Comparison: None IMPRESSION: Right elbow degenerative changes. Olecranon spur. Remainder of the right elbow is unremarkable. Electronically authenticated by: MICHAEL CASANOVA Date: 2022-12-06 07:22 Normal [facility] XR FOREARM RT 2Von XR FOREARM RT 2V Exam: Radiographs: X R FOREARM RT 2V Reason for exam: Forearm pain Comparison: None IMPRESSION: Mild degenerative changes in the right elbow and wrist. Right forearm is otherwise unremarkable. Electronically authenticated by: MICHAEL CASANOVA Date: 2022-12-06 08:07 Normal [facility] PSA, FREE AND TOTAL RATIOon 12-03-2022 % Free PSA 9.0 % Normal [facility] Comment on above: Result [...] men. Performed By: #### P SAFREE #### [facility] [address] [place] [address] [address] Shabnam Rae Prostate specific Ag [Mass/Vol] 5.9 ng/mL Critically high 0.0-4.0 [facility] Comment on above: Result Comment: Tanja ayala ECLIA methodology. . According to the [employer], Serum PSA should decrease and [...] disease. Performed By: #### P SAFREE #### [facility] [address] [place] [address] Dr. Shabnam Rae PSA, Free 0.53 ng/mL Normal N/A [facility] Comment on above: Result Comment: Tanja ayala ECLIA methodology. Performed By: #### P SAFREE #### [facility] [address] [place] [address] Dr. Shabnam Rae INSULINon 12-02-2022 Insulin 20.2 uIU/mL Normal 2.6-24.9 [facility] Comment on above: Performed By: #### P SASC #### [facility] [address] [place] [address] Dr. Shabnam Rae TESTOSTERONE, TOTALon 2022 Testosterone [Mass/Vol] 256 ng/dL Critically low 264-916 [facility] Comment on above: Result Comment: Adul t male reference interval is based on a population of healthy nonobese males (BMI <30) between 19 and 39 years old. Dima et.al. JCEM 2017,102;2743-7983. PMID: [id number]. Performed By: #### P SASC #### [facility] [address] [place] [address] [address] Shabnam Rae CBC AUTO DIFFon 12-01-2022 BASO # 0.1 103/ul Normal 0.0-0.1 [facility] Comment on above: Performed By: #### P SASC #### [facility] [address] [place] [address] [address] Shabnam Rae Basophils/100 WBC (Bld) 1.0 % Normal 0.2-2.0 [facility] Comment on above: Performed By: #### P SASC #### [facility] [address] [place] [address] Dr. Shabnam Rae EO # 0.1 103/ul Normal 0.0-0.7 [facility] Comment on above: Performed By: #### P SASC #### [facility] [address] [place] [address] Dr. Shabnam Rae Eosinophils/100 WBC (Bld) 1.8 % Normal 0.9-7.0 [facility] Comment on above: Performed By: #### P SASC #### [facility] [address] [place] [address] Dr. Shabnam Rae Erythrocyte distribution width (RBC) [Ratio] 14.8 % Normal 11.0-15.0 [facility] Comment on above: Performed By: #### P SASC #### [facility] [address] [place] [address] Dr. Shabnam Rae Hematocrit (Bld) [Volume fraction] 49.9 % Normal 42.0-54.0 [facility] Comment on above: Performed By: #### P SASC #### [facility] [address] [place] [address] Dr. Shabnam Rae Hemoglobin (Bld) [Mass/Vol] 16.0 g/dL Normal 14.0-18.0 [facility] Comment on above: Performed By: #### P SASC #### [facility] [address] [place] [address] Dr. Shabnam Rae IG # 0.04 10e3/ul Critically high 0.00-0.[address] [facility] Comment on above: Performed By: #### P SASC #### [facility] [address] [place] [address] Dr. Shabnam Rae IG % 0.6 % Critically high 0.0-0.5 [facility] Comment on above: Performed By: #### P SASC #### [facility] [address] [place] [address] Dr. Shabnam Rae LYMPH # 1.0 103/ul Critically low 1.2-3.8 [facility] Comment on above: Performed By: #### P SASC #### [facility] [address] [place] [address] Dr. Shabnam Rae Lymphocytes/100 WBC (Bld) 16.2 % Critically low 20.5-60.0 [facility] Comment on above: Performed By: #### P SASC #### [facility] [address] [place] [address] Dr. Shabnam Rae MANUAL DIFF REQ NO Normal [facility] Comment on above: Performed By: #### P SASC #### [facility] [address] [place] [address] Dr. Shabnam Rae MCH (RBC) [Entitic mass] 27.7 pg Normal 25.9-34.0 [facility] Comment on above: Performed By: #### P SASC #### [facility] [address] [place] [address] Dr. Shabnam Rae MCHC (RBC) [Mass/Vol] 32.1 g/dL Normal 29.9-35.2 [facility] Comment on above: Performed By: #### P SASC #### [facility] [address] [place] [address] Dr. Shabnam Rae MCV (RBC) [Entitic vol] 86.3 fL Normal 80.0-94.0 [facility] Comment on above: Performed By: #### P SASC #### [facility] [address] [place] [address] Dr. Shabnam Rae MONO # 0.5 103/ul Normal 0.3-0.8 [facility] Comment on above: Performed By: #### P SASC #### [facility] [address] [place] [address] Dr. Shabnam Rae Monocytes/100 WBC (Bld) 7.6 % Normal 1.7-12.0 [facility] Comment on above: Performed By: #### P SASC #### [facility] [address] [place] [address] [address] Shabnam Rae NEUT # 4.6 103/ul Normal 1.4-6.5 [facility] Comment on above: Performed By: #### P SASC #### [facility] [address] [place] [address] [address] Shabnam Rae Neutrophils/100 WBC (Bld) 72.8 % Normal 43.0-75.0 [facility] Comment on above: Performed By: #### P SASC #### [facility] [address] [place] [address] Dr. Shabnam Rae Platelet mean volume (Bld) [Entitic vol] 9.8 fL Normal 9.5-13.5 [facility] Comment on above: Performed By: #### P SASC #### [facility] [address] [place] [address] [address] Shabnam Rae PLT 203 103/ul Normal 150-450 [facility] Comment on above: Performed By: #### P SASC #### [facility] [address] [place] [address] Dr. Shabnam Rae RBC 5.78 106/ul Normal 4.70-6.10 [facility] Comment on above: Performed By: #### P SASC #### [facility] [address] [place] [address] [address] Shabnam Rae WBC 6.3 103/ul Normal 4.0-11.0 [facility] Comment on above: Performed By: #### P SASC #### [facility] [address] [place] [address] [address] Shabnam Rea FREE THYROXINE INDEX T7on FTI 2.05 Normal 1.30-4.50 [facility] Comment on above: Performed By: #### T SH, CMP, LIPID, T7, URIC #### [facility] [address] [place] [address] Dr. Shabnam Rae T3U 33.0 % Normal 33.0-40.0 [facility] Comment on above: Performed By: #### T SH, CMP, LIPID, T7, URIC #### [facility] [address] [place] [address] [address] Shabnam Rae T4 [Mass/Vol] 6.20 ug/dL Normal 4.50-12.10 [facility] Comment on above: Performed By: #### T SH, CMP, LIPID, T7, URIC #### [facility] [address] [place] [address] [address] Shabnam aRe GLYCOHEMOGLOBIN A1Con 2022 ADA RECOMMENDATION SEE BELOW Normal [facility] Comment on above: Result Comment: ADA RECOMMENDED LIMIT 4.0 - 6.0 ADA THERAPEUTIC TARGET < 7.0 ACTION SUGGESTED > 7.0 Performed By: #### P SASC #### [facility] [address] [place] [address] Dr. Shabnam Rae Glucose [Mass/Vol] 114 mg/dL Normal [facility] Comment on above: Performed By: #### P SASC #### [facility] [address] [place] [address] [address] Shabnam Rae HbA1c (Bld) [Mass fraction] 5.6 % Normal 4.5-6.2 [facility] Comment on above: Performed By: #### P SASC #### [facility] [address] [place] [address] Dr. Shabnam Rae LIPID PROFILEon 12-01-2022 CHOL-HDL RATIO NORM SEE BELOW Normal [facility] Comment on above: Result Comment: 3.3 - 4.4 LOW RISK 4.4 - 7.1 AVERAGE RISK 7.1 - 11.0 MODERATE RISK >11.0 HIGH RISK Performed By: #### T SH, CMP, LIPID, T7, URIC #### [facility] [address] [place] [address] Dr. Shabnam Rae Cholesterol [Mass/Vol] 176 mg/dL Normal <=200 [facility] Comment on above: Performed By: #### T SH, CMP, LIPID, T7, URIC #### [facility] [address] [place] [address] [address] Shabnam Rae Cholesterol in HDL [Mass/Vol] 48 mg/dL Normal 40-60 [facility] Comment on above: Performed By: #### T SH, CMP, LIPID, T7, URIC #### [facility] [address] [place] [address] [address] Shabnam Rae Cholesterol in LDL [Mass/Vol] 108.2 mg/dL Normal [facility] Comment on above: Performed By: #### T SH, CMP, LIPID, T7, URIC #### [facility] [address] [place] [address] [address] Shabnam Rae Cholesterol.total/Ch olesterol in HDL [Mass ratio] 3.7 {ratio} Normal [facility] Comment on above: Performed By: #### T SH, CMP, LIPID, T7, URIC #### [facility] [address] [place] [address] [address] Shabnam Rae HDL NORMAL > or = 60 mg/dl - LO W CARDIOVASCULAR RISK <40 mg/dl - HIGH CARDIOVASCULAR RISK Normal [facility] Comment on above: Performed By: #### T SH, CMP, LIPID, T7, URIC #### [facility] [address] [place] [address] [address] Shabnam Rae LDL CALC NORMAL SEE BELOW Normal [facility] Comment on above: Result Comment: <100 mg/dl OPTIMAL 100 - 129 mg/dl NEAR OR ABOVE OPTIMAL 130 - 159 mg/dl BORDERLINE HIGH 160 - 189 mg/dl HIGH >190 mg/dl VERY HIGH Performed By: #### T SH, CMP, LIPID, T7, URIC #### [facility] [address] [place] [address] [address] Shabnam Rae Triglyceride [Mass/Vol] 99 mg/dL Normal <=150 [facility] Comment on above: Performed By: #### T SH, CMP, LIPID, T7, URIC #### [facility] [address] [place] [address] [address] Shabnam Rae VLDL CALC 19.8 mg/dL Normal [facility] Comment on above: Performed By: #### T SH, CMP, LIPID, T7, URIC #### [facility] [address] [place] [address] Dr. Shabnam Rae PROF 14(COMP METB)on 023 Albumin [Mass/Vol] 4.1 g/dL Normal 3.4-5.0 [facility] Comment on above: Performed By: #### T SH, CMP, LIPID, T7, URIC #### [facility] [address] [place] [address] Dr. Shabnam Rae Albumin/Globulin [Mass ratio] 1.1 {ratio} Normal [facility] Comment on above: Performed By: #### T SH, CMP, LIPID, T7, URIC #### [facility] [address] [place] [address] Dr. Shabnam Rae ALP [Catalytic activity/Vol] 101 U/L Normal 46-116 [facility] Comment on above: Performed By: #### T SH, CMP, LIPID, T7, URIC #### [facility] [address] [place] [address] Dr. Shabnam Rae ALT [Catalytic activity/Vol] 26 U/L Normal 16-63 [facility] Comment on above: Performed By: #### T SH, CMP, LIPID, T7, URIC #### [facility] [address] [place] [address] Dr. Shabnam Rae Anion gap [Moles/Vol] 10.1 mmol/L Normal [facility] Comment on above: Performed By: #### T SH, CMP, LIPID, T7, URIC #### [facility] [address] [place] [address] Dr. Shabnam Rae AST [Catalytic activity/Vol] 19 U/L Normal 15-37 [facility] Comment on above: Performed By: #### T SH, CMP, LIPID, T7, URIC #### [facility] [address] [place] [address] Dr. Shabnam Rae Bilirubin [Mass/Vol] 0.8 mg/dL Normal 0.2-1.0 [facility] Comment on above: Performed By: #### T SH, CMP, LIPID, T7, URIC #### [facility] [address] [place] [address] Dr. Shabnam Rae Calcium [Mass/Vol] 9.5 mg/dL Normal 8.5-10.1 [facility] Comment on above: Performed By: #### T SH, CMP, LIPID, T7, URIC #### [facility] [address] [address] [address] Shabnam Rae Chloride [Moles/Vol] 102 mmol/L Normal 98-107 [facility] Comment on above: Performed By: #### T SH, CMP, LIPID, T7, URIC #### [facility] [address] [address] [address] Shabnam Rae CO2 [Moles/Vol] 32.4 mmol/L Critically high 21.0-32.0 [facility] Comment on above: Performed By: #### T SH, CMP, LIPID, T7, URIC #### [facility] [address] [place] [address] Dr. Shabnam Rae Creatinine [Mass/Vol] 1.00 mg/dL Normal 0.70-1.30 [facility] Comment on above: Performed By: #### T SH, CMP, LIPID, T7, URIC #### [facility] [address] [address] [address] Shabnam Rae EGFR-AF JAMAICAN >60 Normal >=60 [facility] Comment on above: Performed By: #### T SH, CMP, LIPID, T7, URIC #### [facility] [address] [place] [address] Dr. Shabnam Rae EGFR-NON AF JAMAICAN >60 Normal >=60 [facility] Comment on above: Performed By: #### T SH, CMP, LIPID, T7, URIC #### [facility] [address] [address] [address] Shabnam Rae Globulin (S) [Mass/Vol] 3.8 g/dL Normal [facility] Comment on above: Performed By: #### T SH, CMP, LIPID, T7, URIC #### [facility] [address] [address] [address] Shabnam Rae Glucose [Mass/Vol] 94 mg/dL Normal 74-106 [facility] Comment on above: Performed By: #### T SH, CMP, LIPID, T7, URIC #### [facility] [address] [address] [address] Shabnam Rae Potassium [Moles/Vol] 3.5 mmol/L Normal 3.5-5.1 [facility] Comment on above: Performed By: #### T SH, CMP, LIPID, T7, URIC #### [facility] [address] [address] [address] Shabnam Rae Protein [Mass/Vol] 7.9 g/dL Normal 6.4-8.2 [facility] Comment on above: Performed By: #### T SH, CMP, LIPID, T7, URIC #### [facility] [address] [place] [address] Dr. Shabnam Rae Sodium [Moles/Vol] 141 mmol/L Normal 136-145 [facility] Comment on above: Performed By: #### T SH, CMP, LIPID, T7, URIC #### [facility] [address] [place] [address] Dr. Shabnam Rae Urea nitrogen [Mass/Vol] 15.0 mg/dL Normal 7.0-18.0 [facility] Comment on above: Performed By: #### T SH, CMP, LIPID, T7, URIC #### [facility] [address] [place] [address] Dr. Shabnam Rae Urea nitrogen/Creatinine [Mass ratio] 15.0 mg/mg Normal [facility] Comment on above: Performed By: #### T SH, CMP, LIPID, T7, URIC #### [facility] [address] [place] [address] Dr. Shabnam Rae TSHon 12-01-2022 TSH 1.504 uIU/mL Normal 0.358-3.740 [facility] Comment on above: Performed By: #### T SH, CMP, LIPID, T7, URIC #### [facility] [address] [place] [address] Dr. Shabnam Rae URIC ACID SERUMon 12-01-2022 Urate [Mass/Vol] 6.9 mg/dL Normal 3.5-7.2 [facility] Comment on above: Performed By: #### T SH, CMP, LIPID, T7, URIC #### [facility] [address] [id number] Shabnam Rae TESTOSTERONE, TOTALon 2021 Testosterone [Mass/Vol] 244 ng/dL Critically low 264-916 [facility] Comment on above: Result Comment: Adul t male reference interval is based on a population of healthy nonobese males (BMI <30) between 19 and 39 years old. Travison, et.al. JCEM 2017,102;7524-3357. PMID: 68970071. Performed By: #### P SAFREE #### [facility] [address] [place] [address] Dr. Shabnam Rae TESTOSTERONE, FREE,DIRECT, T OTALon 03-16-2022 Free Testosterone(Direct) 2.1 pg/mL Critically low 7.2-24.0 [facility] Comment on above: Result Comment: Perf ormed at: BN Performed By: #### C VDTBH #### [facility] [address] [place] [address] Dr. Shabnam Rae Testosterone [Mass/Vol] 252 ng/dL Critically low 264-916 [facility] Comment on above: Result Comment: Adul t male reference interval is based on a population of healthy nonobese males (BMI <30) between 19 and 39 years old. Travison, et.al. JCEM 2017,102;3473-6850. PMID: [id number]. Performed at: CB Performed By: #### C VDTBH #### [facility] [address] [place] [address] Dr. Shabnam Rae Formson 02-26-2022 Forms [id number]. 00CD:127 Normal [facility] Screenson 02-26-2022 Screens [id number]. 00CD:127 Normal [facility] Screens [id number] 0CD:127 Normal [facility] Urology Office/Clinic Noteon 02-26-2022 Urology Office/Clinic [...] With When Contact Information Viola Grullon MD, [place], [facility] Additional Instructions: Patient Education Hydrocele, Adult [...] 0 02-25-2022 Ambulatory Visit Summary MATTY GARCES Tnoi :1970 Visit Date:02/25/2022 Ambulatory Visit Instructions Your Diagnosis Hydrocele Varicocele BPH without urinary obstruction Tests Performed Urnls Dip Stick Auto w/o Microscopy POC 17529 Your Care Team Attending Physician - Viola [...] Appointments Follow Up with Viola Grullon MD, [facility] When: Where: Test Results Urnls Dip Stick Auto w/o Microscopy POC 84485 (02/25/2022) Bilirubin Urine Dipstick - Negative Blood Urine Dipstick - Negative Glucose Urine Dipstick - Negative Ketones Urine Dipstick - Negative Leukocytes Urine Dipstick - Negative Nitrite Urine Dipstick - Negative Protein Urine Dipstick - Negative Specific [place] Urine Dipstick - >=1.030 Urine Appearance Urine [...] the hydrocele for any changes. ? Take sdcl-eyd-eegupgh and prescription medicines only as told by [...] [facility] Patient Educationon 02-26-20 22 Patient Education Urology Hydrocele, Adult A hydrocele [...] the hydrocele for any changes. ? Take dwya-sci-yrfnpuh and prescription medicines only as told by [...] 02/17/2011 Document Revised: 09/10/2018 Document Reviewed: 09/10/2018 [employer] Patient Education ? 2019 [employer]. [facility] ED Note-Physicianon 02-04-20 ED Note-Physician [id number] .00CD:127 [facility] RAD - Ultrasound Reporton RAD - Ultrasound Report [id number] 0CD:127 Normal [facility] RAD - CT Reporton 02-02-2022 RAD - CT Report [id number] .00CD:127 [facility] RAD - CT Report [id number] .00CD:127 [facility] CBC AUTO DIFFon 01-05-2022 BASO # 0.0 103/ul Normal 0.0-0.1 [facility] Comment on above: Performed By: #### P SAFREE #### [facility] [address] [place] [address] Dr. Shabnam Rae Basophils/100 WBC (Bld) 0.6 % Normal 0.2-2.0 [facility] Comment on above: Performed By: #### P SAFREE #### [facility] [address] [address] [address] Shabnam Rae EO # 0.1 103/ul Normal 0.0-0.7 [facility] Comment on above: Performed By: #### P SAFREE #### [facility] [address] [address] [address] Shabnam Rae Eosinophils/100 WBC (Bld) 2.1 % Normal 0.9-7.0 [facility] Comment on above: Performed By: #### P SAFREE #### [facility] [address] [place] [address] Dr. Shabnam Rae Erythrocyte distribution width (RBC) [Ratio] 13.1 % Normal 11.0-15.0 [facility] Comment on above: Performed By: #### P SAFREE #### [facility] [address] [place] [address] Dr. Shabnam Rae Hematocrit (Bld) [Volume fraction] 43.1 % Normal 42.0-54.0 [facility] Comment on above: Performed By: #### P SAFREE #### [facility] [address] [place] [address] Dr. Shabnam Rae Hemoglobin (Bld) [Mass/Vol] 13.7 g/dL Critically low 14.0-18.0 [facility] Comment on above: Performed By: #### P SAFREE #### [facility] [address] [place] [address] Dr. Shabnam Rae IG # 0.04 10e3/ul Critically high 0.00-0.03 [facility] Comment on above: Performed By: #### P SAFREE #### [facility] [address] [place] [address] Dr. Shabnam Rae IG % 0.6 % Critically high 0.0-0.5 [facility] Comment on above: Performed By: #### P SAFREE #### [facility] [address] [address] [address] Shabnam Rae LYMPH # 0.9 103/ul Critically low 1.2-3.8 [facility] Comment on above: Performed By: #### P SAFREE #### [facility] [address] [address] [address] Shabnam Rae Lymphocytes/100 WBC (Bld) 13.1 % Critically low 20.5-60.0 [facility] Comment on above: Performed By: #### P SAFREE #### [facility] [address] [address] [address] Shabnam Rae MANUAL DIFF REQ NO Normal [facility] Comment on above: Performed By: #### P SAFREE #### [facility] [address] [address] [address] Shabnam Rae MCH (RBC) [Entitic mass] 29.5 pg Normal 25.9-34.0 [facility] Comment on above: Performed By: #### P SAFREE #### [facility] [address] [place] [address] Dr. Shabnam Rae MCHC (RBC) [Mass/Vol] 31.8 g/dL Normal 29.9-35.2 [facility] Comment on above: Performed By: #### P SAFREE #### [facility] [address] [place] [address] Dr. Shabnam Rae MCV (RBC) [Entitic vol] 92.9 fL Normal 80.0-94.0 [facility] Comment on above: Performed By: #### P SAFREE #### [facility] [address] [place] [address] Dr. Shabnam Rae MONO # 0.4 103/ul Normal 0.3-0.8 [facility] Comment on above: Performed By: #### P SAFREE #### [facility] [address] [address] [address] Shabnam Rae Monocytes/100 WBC (Bld) 5.4 % Normal 1.7-12.0 [facility] Comment on above: Performed By: #### P SAFREE #### [facility] [address] [address] [address] Shabnam Rae NEUT # 5.2 103/ul Normal 1.4-6.5 [facility] Comment on above: Performed By: #### P SAFREE #### [facility] [address] [place] [address] Dr. hSabnam Rae Neutrophils/100 WBC (Bld) 78.2 % Critically high 43.0-75.0 [facility] Comment on above: Performed By: #### P SAFREE #### [facility] [address] [address] [address] Shabnam Rae Platelet mean volume (Bld) [Entitic vol] 10.9 fL Normal 9.5-13.5 [facility] Comment on above: Performed By: #### P SAFREE #### [facility] [address] [address] [address] Shabnam Rae PLT 153 103/ul Normal 150-450 [facility] Comment on above: Performed By: #### P SAFREE #### [facility] [address] [place] [address] Dr. Shabnam Rae RBC 4.64 106/ul Critically low 4.70-6.10 [facility] Comment on above: Performed By: #### P SAFREE #### [facility] [address] [place] [address] Dr. Shabnam Rae WBC 6.6 103/ul Normal 4.0-11.0 [facility] Comment on above: Performed By: #### P SAFREE #### [facility] [address] [place] [address] Dr. Shabnam Rae CRPon 01-05-2022 CRP 0.9 mg/dL Normal <=1.0 [facility] Comment on above: Performed By: #### P SAFREE #### [facility] [address] [address] [address] Shabnam Rae PROF 14(COMP METB)on 022 Albumin [Mass/Vol] 3.6 g/dL Normal 3.4-5.0 [facility] Comment on above: Performed By: #### P SAFREE #### [facility] [address] [address] [address] Shabnam Rae Albumin/Globulin [Mass ratio] 1.0 {ratio} Normal [facility] Comment on above: Performed By: #### P SAFREE #### [facility] [address] [address] [address] Shabnam Rae ALP [Catalytic activity/Vol] 114 U/L Normal 46-116 [facility] Comment on above: Performed By: #### P SAFREE #### [facility] [address] [place] [address] Dr. Shabnam Rea ALT [Catalytic activity/Vol] 26 U/L Normal 16-63 [facility] Comment on above: Performed By: #### P SAFREE #### [facility] [address] [place] [address] Dr. Shabnam Rae Anion gap [Moles/Vol] 9.3 mmol/L Normal [facility] Comment on above: Performed By: #### P SAFREE #### [facility] [address] [place] [address] Dr. Shabnam Rae AST [Catalytic activity/Vol] 19 U/L Normal 15-37 [facility] Comment on above: Performed By: #### P SAFREE #### [facility] [address] [place] [address] Dr. Shabnam Rae Bilirubin [Mass/Vol] 0.5 mg/dL Normal 0.2-1.0 [facility] Comment on above: Performed By: #### P SAFREE #### [facility] [address] [place] [address] Dr. Shabnam Rae Calcium [Mass/Vol] 8.9 mg/dL Normal 8.5-10.1 [facility] Comment on above: Performed By: #### P SAFREE #### [facility] [address] [place] [address] Dr. Shabnam Rae Chloride [Moles/Vol] 106 mmol/L Normal 98-107 [facility] Comment on above: Performed By: #### P SAFREE #### [facility] [address] [place] [address] Dr. Shabnam Rae CO2 [Moles/Vol] 30.7 mmol/L Normal 21.0-32.0 [facility] Comment on above: Performed By: #### P SAFREE #### [facility] [address] [place] [address] Dr. Shabnam Rae Creatinine [Mass/Vol] 1.15 mg/dL Normal 0.70-1.30 [facility] Comment on above: Performed By: #### P SAFREE #### [facility] [address] [place] [address] Dr. Shabnam Rae EGFR-AF JAMAICAN >60 Normal >=60 [facility] Comment on above: Performed By: #### P SAFREE #### [facility] [address] [place] [address] Dr. Shabnam Rae EGFR-NON AF [place] >60 Normal >=60 [facility] Comment on above: Performed By: #### P SAFREE #### [facility] [address] [place] [address] Dr. Shabnam Rae Globulin (S) [Mass/Vol] 3.6 g/dL Normal [facility] Comment on above: Performed By: #### P SAFREE #### [facility] [address] [place] [address] Dr. Shabnam Rae Glucose [Mass/Vol] 117 mg/dL Critically high 74-106 T [facility] Comment on above: Performed By: #### P SAFREE #### [facility] [address] [place] [address] Dr. Shabnam Rae Potassium [Moles/Vol] 4.0 mmol/L Normal 3.5-5.1 [facility] Comment on above: Performed By: #### P SAFREE #### [facility] [address] [place] [address] Dr. Shabnam Rae Protein [Mass/Vol] 7.2 g/dL Normal 6.1-8.2 [facility] Comment on above: Performed By: #### P SAFREE #### [facility] [address] [place] [address] Dr. Shabnam Rae Sodium [Moles/Vol] 142 mmol/L Normal 136-145 [facility] Comment on above: Performed By: #### P SAFREE #### [facility] [address] [place] [address] Dr. Shabnam Rae Urea nitrogen [Mass/Vol] 15.0 mg/dL Normal 7.0-18.0 [facility] Comment on above: Performed By: #### P SAFREE #### [facility] [address] [address] [address] Shabnam Rae Urea nitrogen/Creatinine [Mass ratio] 13.0 mg/mg Normal [facility] Comment on above: Performed By: #### P SAFREE #### [facility] [address] [place] [address] Dr. Shabnam Rae US SCROTUMon 01-05-2022 US [...] by: ALVINA CAICEDO Date: 2022-01-05 08:48 Normal [facility] CBC AUTO DIFFon 01-04-2022 BASO # 0.1 103/ul Normal 0.0-0.1 [facility] Comment on above: Performed By: #### C BC #### [facility] [address] [address] [address] Shabnam Rae Basophils/100 WBC (Bld) 0.8 % Normal 0.2-2.0 [facility] Comment on above: Performed By: #### C BC #### [facility] [address] [address] [address] Shabnam Rae EO # 0.1 103/ul Normal 0.0-0.7 [facility] Comment on above: Performed By: #### C BC #### [facility] [address] [place] [address] Dr. Shabnam Rae Eosinophils/100 WBC (Bld) 1.5 % Normal 0.9-7.0 [facility] Comment on above: Performed By: #### C BC #### [facility] [address] [place] [address] Dr. Shabnam Rae Erythrocyte distribution width (RBC) [Ratio] 12.8 % Normal 11.0-15.0 [facility] Comment on above: Performed By: #### C BC #### [facility] [address] [place] [address] Dr. Shabnam Rae Hematocrit (Bld) [Volume fraction] 40.3 % Critically low 42.0-54.0 [facility] Comment on above: Performed By: #### C BC #### [facility] [address] [place] [address] Dr. Shabnam Rae Hemoglobin (Bld) [Mass/Vol] 13.4 g/dL Critically low 14.0-18.0 [facility] Comment on above: Performed By: #### C BC #### [facility] [address] [place] [address] Dr. Shabnam Rae IG # 0.03 10e3/ul Normal 0.00-0.03 [facility] Comment on above: Performed By: #### C BC #### [facility] [address] [place] [address] Dr. Shabnam Rae IG % 0.5 % Normal 0.0-0.5 [facility] Comment on above: Performed By: #### C BC #### [facility] [address] [place] [address] Dr. Shabnam Rae LYMPH # 1.0 103/ul Critically low 1.2-3.8 [facility] Comment on above: Performed By: #### C BC #### [facility] [address] [place] [address] Dr. Shabnam Rae Lymphocytes/100 WBC (Bld) 16.4 % Critically low 20.5-60.0 [facility] Comment on above: Performed By: #### C BC #### [facility] [address] [place] [address] Dr. Shabnam Rae MANUAL DIFF REQ NO Normal [facility] Comment on above: Performed By: #### C BC #### [facility] [address] [place] [address] Dr. Shabnam Rae MCH (RBC) [Entitic mass] 29.5 pg Normal 25.9-34.0 [facility] Comment on above: Performed By: #### C BC #### [facility] [address] [place] [address] Dr. Shabnam Rae MCHC (RBC) [Mass/Vol] 33.3 g/dL Normal 29.9-35.2 [facility] Comment on above: Performed By: #### C BC #### [facility] [address] [place] [address] Dr. Shabnam Rae MCV (RBC) [Entitic vol] 88.8 fL Normal 80.0-94.0 [facility] Comment on above: Performed By: #### C BC #### [facility] [address] [place] [address] Dr. Shabnam Rae MONO # 0.6 103/ul Normal 0.3-0.8 [facility] Comment on above: Performed By: #### C BC #### [facility] [address] [place] [address] Dr. Shabnam Rae Monocytes/100 WBC (Bld) 9.6 % Normal 1.7-12.0 [facility] Comment on above: Performed By: #### C BC #### [facility] [address] [place] [address] Dr. Shabnam Rae NEUT # 4.4 103/ul Normal 1.4-6.5 [facility] Comment on above: Performed By: #### C BC #### [facility] [address] [place] [address] Dr. Shabnam Rae Neutrophils/100 WBC (Bld) 71.2 % Normal 43.0-75.0 [facility] Comment on above: Performed By: #### C BC #### [facility] [address] [place] [address] Dr. Shabnam Rae Platelet mean volume (Bld) [Entitic vol] 10.8 fL Normal 9.5-13.5 [facility] Comment on above: Performed By: #### C BC #### [facility] [address] [place] [address] Dr. Shabnam Rae PLT 158 103/ul Normal 150-450 [facility] Comment on above: Performed By: #### C BC #### [facility] [address] [place] [address] Dr. Shabnam Rae RBC 4.54 106/ul Critically low 4.70-6.10 [facility] Comment on above: Performed By: #### C BC #### [facility] [address] [place] [address] Dr. Shabnam Rae WBC 6.2 103/ul Normal 4.0-11.0 [facility] Comment on above: Performed By: #### C BC #### [facility] [address] [place] [address] ABD/PELV W CONon [...] MAYRA BERNAL Date: 2022-01-04 05:19 Normal [facility] CT PELVIS WO CONon 2 [...] MANUEL HOUGH Date: 2022-01-04 08:54 Normal [facility] CULTURE URINEon 01-04-2022 CULTURE URINE Culture Observations : No growth Normal [facility] Comment on above: Performed By: #### P [facility] #### [facility] [address] [place] [address] Dr. Shabnam Rae Covid-19 PCR ([facility]on 12-13 SARS-CoV-2 (COVID-19) RNA ELIJAH+probe Ql (Unsp spec) Not detected Normal NOT DETECTED [facility] Comment on above: Result Comment: When diagnostic testing is negative, the possibility of a false negative should be considered in the context of a patient's recent exposures and the presence of clinical signs and symptoms consistent with SARS-CoV-2. This test is not yet approved or cleared by the [place] Food and Drug Administration (FDA). This test was developed by [employer], [place], [place]. The performance characteristics of this test were validated by [facility]. The results are not intended to be used as the sole means for clinical diagnosis or patient management decisions. [facility] is authorized under Clinical Laboratory [...] for this test is supported by the [employer] of Health and Human Service's declaration [...] used). Performed By: #### C V[facility] #### [facility] [address] [place] [address] Dr. Shabnam Rae ER URINE PROFILEon 2 Bilirubin Ql (U) Negative Normal NEGATIVE [facility] Comment on above: Performed By: #### P SASC #### [facility] [address] [place] [address] Dr. Shabnam Rae Clarity (U) CLEAR Normal CLEAR [facility] Comment on above: Performed By: #### P SASC #### [facility] [address] [place] [address] Dr. Shabnam Rae Color (U) YELLOW Normal YELLOW [facility] Comment on above: Performed By: #### P SASC #### [facility] [address] [place] [address] Dr. Shabnam Rea ERUD A micrscopic examination will be performed if indicated. Normal [facility] Comment on above: Performed By: #### P SASC #### [facility] [address] [place] [address] Dr. Shabnam Rae Glucose Ql (U) Negative Normal NEGATIVE [facility] Comment on above: Performed By: #### P SASC #### [facility] [address] [place] [address] Dr. Shabnam Rae Hemoglobin Ql (U) Negative Normal NEGATIVE [facility] Comment on above: Performed By: #### P SASC #### [facility] [address] [place] [address] Dr. Shabnam Rae Ketones Ql (U) Negative Normal NEGATIVE [facility] Comment on above: Performed By: #### P SASC #### [facility] [address] [place] [address] Dr. Shabnam Rae LEUKOCYTES Negative Normal NEGATIVE [facility] Comment on above: Performed By: #### P SASC #### [facility] [address] [address] [address] Shabnam Rae Nitrite Ql (U) Negative Normal NEGATIVE [facility] Comment on above: Performed By: #### P SASC #### [facility] [address] [place] [address] Dr. Shabnam Rae pH (U) 6.5 [pH] Normal 5-9 [facility] Comment on above: Performed By: #### P SASC #### [facility] [address] [place] [address] Dr. Shabnam Rae SPEC GRAVITY 1.010 Normal 1.005-<=1.025 [facility] Comment on above: Performed By: #### P SASC #### [facility] [address] [place] [address] Dr. Shabnam Rae UA PROTEIN Negative Normal NEGATIVE/ TRACE [facility] Comment on above: Performed By: #### P SASC #### [facility] [address] [place] [address] Dr. Shabnam Rae UR MICRO IND NOT INDICATED Normal [facility] Comment on above: Performed By: #### P SASC #### [facility] [address] [place] [address] Dr. Shabnam Rae Urobilinogen Qn (U) 0.2 {Sarai'U}/dL Normal 0.2 - 1. 0 [facility] Comment on above: Performed By: #### P SASC #### [facility] [address] [place] [address] Dr. Shabnam Rae LACTATE/LACTIC ACIDon 2021 Lactate [Moles/Vol] 1.0 mmol/L Normal 0.4-2.0 [facility] Comment on above: Performed By: #### P SASC #### [facility] [address] [address] [address] Shanbam Rae PROF CHEM 8 (BAS METB)on Anion gap [Moles/Vol] 10.0 mmol/L Normal [facility] Comment on above: Performed By: #### B MP #### [facility] [address] [address] [address] Shabnam Rae Calcium [Mass/Vol] 8.5 mg/dL Normal 8.5-10.1 [facility] Comment on above: Performed By: #### B MP #### [facility] [address] [address] [address] Shabnam Rae Chloride [Moles/Vol] 103 mmol/L Normal 98-107 [facility] Comment on above: Performed By: #### B MP #### [facility] [address] [place] [address] Dr. Shabnam Rae CO2 [Moles/Vol] 29.2 mmol/L Normal 21.0-32.0 [facility] Comment on above: Performed By: #### B MP #### [facility] [address] [address] [address] Shabnam Rae Creatinine [Mass/Vol] 1.25 mg/dL Normal 0.70-1.30 [facility] Comment on above: Performed By: #### B MP #### [facility] [address] [place] [address] Dr. Shabnam Rae EGFR-AF JAMAICAN >60 Normal >=60 [facility] Comment on above: Performed By: #### B MP #### [facility] [address] [address] [address] Shabnam Rae EGFR-NON AF JAMAICAN >60 Normal >=60 [facility] Comment on above: Performed By: #### B MP #### [facility] [address] [place] [address] Dr. Shabnam Rae Glucose [Mass/Vol] 132 mg/dL Critically high 74-106 T [facility] Comment on above: Performed By: #### B MP #### [facility] [address] [address] [address] Shabnam Rae Potassium [Moles/Vol] 3.2 mmol/L Critically low 3.5-5.1 [facility] Comment on above: Performed By: #### B MP #### [facility] [address] [address] [address] Shabnam Rae Sodium [Moles/Vol] 139 mmol/L Normal 136-145 [facility] Comment on above: Performed By: #### B MP #### [facility] [address] [address] [address] Shabnam Rae Urea nitrogen [Mass/Vol] 19.0 mg/dL Critically high 7.0-18.0 [facility] Comment on above: Performed By: #### B MP #### [facility] [address] [address] [address] Shabnam Rae Urea nitrogen/Creatinine [Mass ratio] 15.2 mg/mg Normal [facility] Comment on above: Performed By: #### B MP #### [facility] [address] [address] [address] Shabnam Rae CERVICAL SPINE 2 OR 3 [facility] 07-06-2019 CERVICAL SPINE 2 OR 3 S [facility] Department of Radiology [address] [place] [id number] ======== Patient Name: MATTY GARCES : [...] findings. Electronically signed by:Bernice Hoyt. Transcribed by: [email or web address], User Resident: RADHA CHIN Electronically Signed by: BERNICE HOYT @ 07/06/2019 08:52 PM I personally read this/these film(s) with this resident Normal [facility] Comment on above: Order Comment: , STA T READ , STAT READ , , , Ordering Provider - LUCIANO DAVIS MD , CERVICAL SPINE 2 OR 3 [facility] 04-06-2019 CERVICAL SPINE 2 OR 3 S [facility] Department of Radiology [address] [place] [id number] ======== Patient Name: MATTY GARCES : [...] FALLS Exam: CERVICAL SPINE 2 OR 3 [facility] ======== CERVICAL SPINE 2 OR 3 [...] study. Electronically signed by:Bernice Hoyt. Transcribed by: [email or web address], User Resident: Electronically Signed by: BERNICE HOYT @ 04/06/2019 04:40 PM Normal [facility] Comment on above: Order Comment: AP/LA T, ODONTOID PLEASE DO SWIMMER'S VIEW FOLLOW UP HARDWARE AND ALIGNMENT, S/P ACDF, RECENT FALLS CERVICAL SPINE 2 OR 3 [facility] 02-17-2019 CERVICAL SPINE 2 OR 3 [facility] Department of Radiology [address] [place] [phone] ======== Patient Name: MATTY GARCES : [...] ALIGNMENT Exam: CERVICAL SPINE 2 OR 3 [facility] ======== CERVICAL SPINE 2 OR 3 [...] findings. Electronically signed by:Bella King. Transcribed by: [email or web address], User Resident: KENNETH DUVAL Electronically Signed by: BELLA KING @ 02/20/2019 11:53 AM I personally read this/these film(s) with this resident Normal [facility] Comment on above: Order Comment: C-SPI NE 2 OR 3 VIEW POSTOP, EVALUATION HARDWARE AN ALIGNMENT BASIC METABOLIC PANELon 05-2 Calcium [Mass/Vol] 9.2 mg/dL Normal 8.6-10.3 The [facility] Comment on above: Order Comment: No: D o not add to previous draw Performed By: #### 5 0103 #### [address] [place] [address], [facility] Chloride [Moles/Vol] 101 mmol/L Normal 98-107 [facility] Comment on above: Order Comment: No: D o not add to previous draw Performed By: #### 5 0103 #### [facility] [address] [place] [address], [place] CO2 [Moles/Vol] 26 mmol/L Normal 21-31 The [facility] Comment on above: Order Comment: No: D o not add to previous draw Performed By: #### 5 0103 #### [facility] [address] [place] [address], [place] Creatinine [Mass/Vol] 1.02 mg/dL Normal 0.70-1.30 [facility] Comment on above: Order Comment: No: D o not add to previous draw Performed By: #### 5 0103 #### [facility] [address] [place] [address], [place] GFR/1.73 sq M predicted among blacks MDRD (S/P/Bld) [Vol rate/Area] mL/min/{1.73_m2} Normal >60 [facility] Comment on above: Order Comment: No: D o not add to previous draw Performed By: #### 5 0103 #### [facility] [address] [place] [address], [place] GFR/1.73 sq M predicted among non-blacks MDRD (S/P/Bld) [Vol rate/Area] mL/min/{1.73_m2} Normal >60 [facility] Comment on above: Order Comment: No: D o not add to previous draw Performed By: #### 5 0103 #### [facility] [address] [place] [address], [place] Glucose [Mass/Vol] 124 mg/dL High 70-100 [facility] Comment on above: Order Comment: No: D o not add to previous draw Performed By: #### 5 0103 #### [facility] [address] [place] [address], [place] Potassium [Moles/Vol] 3.9 mmol/L Normal 3.5-5.1 [facility] Comment on above: Order Comment: No: D o not add to previous draw Performed By: #### 5 0103 #### [facility] [address] [place] [address], [place] Sodium [Moles/Vol] 137 mmol/L Normal 136-145 The [facility] Comment on above: Order Comment: No: D o not add to previous draw Performed By: #### 5 0103 #### [facility] [address] [place] [address], [facility] Urea nitrogen [Mass/Vol] 15 mg/dL Normal 7-25 [facility] Comment on above: Order Comment: No: D o not add to previous draw Performed By: #### 5 0103 #### [facility] [address] [place] [address], [facility] CBC COMPLETE BLOOD COUNTon - Erythrocyte distribution width (RBC) [Ratio] 13.9 % Normal 11.5-15.0 [facility] Comment on above: Order Comment: No: D o not add to previous draw Performed By: #### 5 0103 #### [facility] [address] [place] [address], [facility] Hematocrit (Bld) [Volume fraction] 50.0 % Normal 39.0-50.0 [facility] Comment on above: Order Comment: No: D o not add to previous draw Performed By: #### 5 0103 #### [facility] [address] [place] [address], [place] Hemoglobin (Bld) [Mass/Vol] 16.0 g/dL Normal 13.0-17.0 [facility] Comment on above: Order Comment: No: D o not add to previous draw Performed By: #### 5 0103 #### [facility] [address] [place] [address], [place] MCH (RBC) [Entitic mass] 27.5 pg Normal 27.0-33.0 [facility] Comment on above: Order Comment: No: D o not add to previous draw Performed By: #### 5 0103 #### [facility] [address] [place] [id number], [facility] MCHC (RBC) [Mass/Vol] 32.0 g/dL Normal 32.0-35.0 [facility] Comment on above: Order Comment: No: D o not add to previous draw Performed By: #### 5 0103 #### [facility] [address] [place] [id number], [facility] MCV (RBC) [Entitic vol] 85.9 fL Normal 82.0-98.0 [facility] Comment on above: Order Comment: No: D o not add to previous draw Performed By: #### 5 0103 #### [facility] [address] [place] [id number], [facility] Nucleated RBC/100 WBC (Bld) [Ratio] 0 % Normal 0-0 [facility] Comment on above: Order Comment: No: D o not add to previous draw Performed By: #### 5 0103 #### [facility] [address] [place] [id number], [facility] PLAT CNT 249 10*3/uL Normal 150-400 The [facility] Comment on above: Order Comment: No: D o not add to previous draw Performed By: #### 5 0103 #### [facility] [address] [place] [address], [facility] RBC (Bld) [#/Vol] 5.82 10*6/uL High 4.20-5.70 The [facility] Comment on above: Order Comment: No: D o not add to previous draw Performed By: #### 5 0103 #### [facility] [address] [place] [address], [place] WBC (Bld) [#/Vol] 15.85 10*3/uL High 4.00-10.60 [facility] Comment on above: Order Comment: No: D o not add to previous draw Performed By: #### 5 0103 #### [facility] [address] [place] [id number] Operative Reporton 9 Operative Report MR#: [id number] I [facility] Pt. Name: Matty Garces Room #: [id number] Discharge Date: Birthdate: 1970 OPERATIVE REPORT DATE OF SURGERY: 01/30/2019 SURGEON: Luciano Davis M.D. 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 POSTOPERATIVE DIAGNOSIS: Failed instrumentation at C6-7 on the right. STUDENT ASSISTANT: ADENIKE Lugo. ANESTHESIA: Endotracheal, Hogan. PROCEDURES: Redo [...] Norma/Luciano Davis M.D. Date Trans: 01/31/2019 02:31 Eze/sasha [id number] cc: Venus Jaeger M.D. [address], [facility] [phone] [place] The [facility] CERVICAL SPINE 2 OR 3 [facility] 01-30-2019 CERVICAL SPINE 2 OR 3 [facility] Department of Radiology [address] [place] [phone] ======== Patient Name: MATTY GARECS : 1970 Sex: M Age: Race: White [...] documentation Electronically signed by:Justus Murphy. Transcribed by: [email or web address], User Resident: Electronically Signed by: JUSTUS MURPHY @ 01/30/2019 04:18 PM Normal [facility] Comment on above: Order Comment: C6-7 ACDF POC GLUCOSE LABon 01-30-2019 Glucose [Mass/Vol] 106 mg/dL High 70-100 The [facility] Comment on above: Performed By: #### 5 0103 #### [facility] [address] [place] [address], [facility] *MRSA/MSSA DNA NASALon 01-23 *MRSA/MSSA DNA NASAL Clinical Report: (D ) Specimen: NASAL SWAB Collected: 01/23/2019 15:02 Status: Final Last Updated: 01/23/2019 20:14 MSSA DNA (Final) Methicillin Susceptible Staphylococcus aureus DNA Detected MRSA DNA (Final) No Methicillin Resistant Staphylococcus aureus DNA Detected Normal The [facility] Comment on above: Performed By: #### 5 0103 #### [facility] [address] [place] [address], [facility] APTTon 01-23-2019 aPTT Coag (Bld) [Time] 35.4 s High 25.0-35.0 [facility] Comment on above: Result Comment: [...] THIS PURPOSE. Performed By: #### 5 7307, 92171 #### [facility] [address] [place] [address], [facility] BASIC METABOLIC PANELon 01-11 Calcium [Mass/Vol] 9.5 mg/dL Normal 8.6-10.3 [facility] Comment on above: Performed By: #### 5 7307, 09415 #### [facility] [address] [place] [address], [facility] Chloride [Moles/Vol] 101 mmol/L Normal 98-107 [facility] Comment on above: Performed By: #### 5 7307, 56021 #### [facility] [address] [place] [address], [facility] CO2 [Moles/Vol] 29 mmol/L Normal 21-31 The [facility] Comment on above: Performed By: #### 5 7307, 39223 #### [facility] [address] [place] [id number], [facility] Creatinine [Mass/Vol] 1.08 mg/dL Normal 0.70-1.30 The [facility] Comment on above: Performed By: #### 5 7307, 16984 #### [facility] [address] [place] [address], [facility] GFR/1.73 sq M predicted among blacks MDRD (S/P/Bld) [Vol rate/Area] mL/min/{1.73_m2} Normal >60 The [facility] Comment on above: Performed By: #### 5 73, 81462 #### [facility] [address] [place] [address], [facility] GFR/1.73 sq M predicted among non-blacks MDRD (S/P/Bld) [Vol rate/Area] mL/min/{1.73_m2} Normal >60 [facility] Comment on above: Performed By: #### 5 73, 06017 #### [facility] [address] [place] [address], [facility] Glucose [Mass/Vol] 87 mg/dL Normal 70-100 The [facility] Comment on above: Performed By: #### 5 73Al, 85996 #### [facility] [address] [place] [address], [facility] Potassium [Moles/Vol] 4.0 mmol/L Normal 3.5-5.1 The [facility] Comment on above: Performed By: #### 5 7307, 94779 #### [facility] [address] [place] [address], [facility] Sodium [Moles/Vol] 137 mmol/L Normal 136-145 The [facility] Comment on above: Performed By: #### 5 7307, 28570 #### [facility] [address] [place] [address], [facility] Urea nitrogen [Mass/Vol] 12 mg/dL Normal 7-25 The [facility] Comment on above: Performed By: #### 5 7307, 83422 #### [facility] [address] [place] [address], [facility] CBC W/DIFFon 01-23-2019 ABS BASOPHILS 0.1 10*3/uL Normal 0.0-0.2 The [facility] Comment on above: Performed By: #### 5 7307, 45906 #### [facility] [address] [place] [address], [facility] ABS IMM GRANS 0.0 10*3/uL Normal 0.0-0.2 The [facility] Comment on above: Performed By: #### 5 7306, 29912 #### [facility] [address] [place] [address], [facility] ABS NEUTROPHILS 5.3 10*3/uL Normal 1.6-7.6 The [facility] Comment on above: Performed By: #### 5 7306, 44333 #### [facility] [address] [place] [address], [facility] Basophils/100 WBC (Bld) 0.9 % Normal 0.0-1.0 The [facility] Comment on above: Performed By: #### 7306, 09240 #### [facility] [address] [place] [address], [facility] Eosinophils (Bld) [#/Vol] 0.2 10*3/uL Normal 0.0-0.5 The [facility] Comment on above: Performed By: #### 5 7306, 34121 #### [facility] [address] [place] [address], [facility] Eosinophils/100 WBC (Bld) 2.3 % Normal 0.0-6.0 The [facility] Comment on above: Performed By: #### 5 7306, 53720 #### [facility] [address] [place] [id number], [facility] Erythrocyte distribution width (RBC) [Ratio] 13.8 % Normal 11.5-15.0 The [facility] Comment on above: Performed By: #### 5 7306, 72043 #### [facility] [address] [place] [id number], [place] Hematocrit (Bld) [Volume fraction] 49.6 % Normal 39.0-50.0 [facility] Comment on above: Performed By: #### 5 7306, 28648 #### [facility] [address] [place] [address], [facility] Hemoglobin (Bld) [Mass/Vol] 16.4 g/dL Normal 13.0-17.0 [facility] Comment on above: Performed By: #### 5 7306, 81447 #### [facility] [address] [place] [address], [facility] IMMATURE GRANS 0.5 % Normal 0.0-1.0 The [facility] Comment on above: Performed By: #### 5 7306, 16428 #### [facility] [address] [place] [address], [facility] Lymphocytes (Bld) [#/Vol] 1.2 10*3/uL Normal 1.2-4.0 The [facility] Comment on above: Performed By: #### 5 7306, 06049 #### [facility] [address] [address], [facility] Lymphocytes/100 WBC (Bld) 16.6 % Low 20.0-45.0 The [facility] Comment on above: Performed By: #### 5 7306, 72606 #### [facility] [address] [place] [address], [facility] MCH (RBC) [Entitic mass] 27.8 pg Normal 27.0-33.0 The [facility] Comment on above: Performed By: #### 5 7306, 75393 #### [facility] [address] [place] [address], [facility] MCHC (RBC) [Mass/Vol] 33.1 g/dL Normal 32.0-35.0 The [facility] Comment on above: Performed By: #### 5 7306, 98607 #### [facility] [address] [place] [id number], [facility] MCV (RBC) [Entitic vol] 84.2 fL Normal 82.0-98.0 The [facility] Comment on above: Performed By: #### 5 7306, 15886 #### [facility] [address] [place] [address], [facility] Monocytes (Bld) [#/Vol] 0.7 10*3/uL Normal 0.1-1.0 The [facility] Comment on above: Performed By: #### 5 7306, [id number] #### [facility] [address] [place] [address], [place] MONOS 9.4 % Normal 5.0-12.0 The [facility] Comment on above: Performed By: #### 5 7306, 32006 #### [facility] [address] [place] [address], [place] Neutrophils/100 WBC (Bld) 70.3 % Normal 40.0-72.0 The [facility] Comment on above: Performed By: #### 5 7306, 21131 #### [facility] [address] [place] [address], [place] Nucleated RBC/100 WBC (Bld) [Ratio] 0 % Normal 0-0 The [facility] Comment on above: Performed By: #### 5 7306, 66282 #### [facility] [address] [place] [address], [place] PLAT CNT 235 10*3/uL Normal 150-400 The [facility] Comment on above: Performed By: #### 5 7306, 81797 #### [facility] [address] [place] [address], [place] RBC (Bld) [#/Vol] 5.89 10*6/uL High 4.20-5.70 The [facility] Comment on above: Performed By: #### 5 7306, 83848 #### [facility] [address] [place] [address], [place] WBC (Bld) [#/Vol] 7.48 10*3/uL Normal 4.00-10.60 [facility] Comment on above: Performed By: #### 5 7307, 56318 #### [facility] [address] PROTHROMBIN TIMEon 9 INR Coag (PPP) [...] CHEST 1995;108:231S-246S. Performed By: #### 5 7307, 16985 #### [facility] [address] [place] [address], [facility] PT Coag (PPP) [Time] 14.4 s Normal 12.3-14.8 The [facility] Comment on above: Result Comment: ALL RESULTS MUST BE INTERPRETED WITH RESPECT TO BLOOD DRAWING ARTIFACT OR DILUTION ERROR OF ANTICOAGULANT AT THE TIME OF SAMPLING. Performed By: #### 5 7307, 29217 #### [facility] [address] [place] [address], [facility] TYPE AND SCREENon 01-23-2019 ABO INTERPRETATION A Normal [facility] Comment on above: Performed By: #### 5 7307, 72241 #### [facility] [address] [place] [address], [facility] RH INTERPRETATION Positive Normal The [facility] Comment on above: Performed By: #### 5 7307, 75762 #### [facility] [address] [place] [address], [facility] CT 3D CERVICAL SPINE WO CONT RASTon 01-12-2019 CT 3D CERVICAL SPINE WO CONTRAST [facility] Department of Radiology [address] [place] [id number] ======== Patient Name: MATTY GARCES : 1970 Sex: M Age: Race: White Pt. Location: Patient Status: D Ordered Date: 01/10/2019 2:15:00 PM Completed Date: 01/12/2019 10:32 AM Requesting Provider: LUCIANO DAVIS Attending Provider: LUCIANO DAVIS Report Copy To: VENUS JAEGER Signs & Symptoms: M48.02 Spinal stenosis, cervical region I10 History: Althea para auth # [id number] 01/10/19-02/09/19 19911 *er Comments: Exam: CT 3D CERVICAL SPINE [...] incomplete Electronically signed by:Ten Uriarte. Transcribed by: [email or web address], User Resident: Electronically Signed by: TEN URIARTE @ 01/13/2019 09:18 AM Normal The [facility] CERVICAL SPINE 2 OR 3 [facility] 01-05-2019 CERVICAL SPINE 2 OR 3 [facility] Department of Radiology [address] [place] [address] ======== Patient Name: MATTY GARCES : 1970 Sex: M Age: Race: White Pt. Location: 85 Patient Status: O Ordered Date: 01/05/2019 9:00:00 AM Completed Date: 01/05/2019 09:06 AM Requesting Provider: LUCIANO DAVIS Attending Provider: LUCIANO DAVIS Report Copy To: Signs & Symptoms: M48.02 Spinal stenosis, cervical region I10 History: [place] Comments: , , , Ordering Provider - [...] Dela Cruz on 01/05/2019 11:53 AM EDT. Ten Au, have reviewed the images and report and concur with these findings. Electronically signed by:Ten Uriarte. Transcribed by: [email or web address], User Resident: SHELLY DELA CRUZ Electronically Signed by: TEN URIARTE @ 01/05/2019 12:37 PM I personally read this/these film(s) with this resident Normal The [facility] Comment on above: Order Comment: , , = ========= , Ordering Provider - LUCIANO DAVIS MD , CERVICAL SPINE 2 OR 3 [facility] 08-30-2018 CERVICAL SPINE 2 OR 3 S [facility] Department of Radiology [address] [place] [address] ======== Patient Name: MATTY GARCES : 1970 Sex: M Age: Race: White Pt. Location: Patient Status: O Ordered Date: 08/30/2018 9:35:00 AM Completed Date: 08/30/2018 09:43 AM Requesting Provider: LUCIANO DAVIS Attending Provider: LUCIANO DAVIS Report Copy To: VENUS JAEGER Signs & Symptoms: M50.90 Cervical disc disorder, unsp, unspecified cervical region I10 History: [place] Comments: , POST OP XRAY AP/LAT ONLY , POST OP XRAY AP/LAT ONLY , , , Ordering Provider - LUCIANO DAVIS MD , Exam: CERVICAL SPINE 2 OR 3 [facility] ======== CERVICAL SPINE 2 OR 3 [...] findings. Electronically signed by:Bella King. Transcribed by: [email or web address], User Resident: RYAN ANDERSON Electronically Signed by: [...] Pt. Name: Matty Garces Room #: [id number] Discharge Date: Birthdate: 1970 OPERATIVE REPORT DATE OF SURGERY: 08/17/2018 SURGEON: Luciano Davis M.D. PREOPERATIVE DIAGNOSIS: Herniated cervical disk at C6-7. POSTOPERATIVE DIAGNOSIS: Herniated cervical disk at C6-7. STUDENT ASSISTANT: ADENIKE Larios. ANESTHESIA: Endotracheal, Braida. PROCEDURE: Anterior [...] Davis M.D. Date Trans: 08/17/2018 11:25 P/sasha [id number] cc: Venus Jaeger M.D. [address], [place] [address] [place] The [facility] CERVICAL SPINE 2 OR 3 [facility] 08-17-2018 CERVICAL SPINE 2 OR 3 [facility] Department of Radiology [address] [place] [id number] ======== Patient Name: MATTY GARCES : [...] findings. Electronically signed by:Bernice Hoyt. Transcribed by: [email or web address], User Resident: KENNETH DUVAL Electronically Signed by: BERNICE HOYT @ 08/18/2018 01:06 PM I personally read this/these film(s) with this resident Normal The [facility] Comment on above: Order Comment: C6-7 ACDF with POC GLUCOSE LABon 08-17-2018 Glucose [Mass/Vol] 113 mg/dL High 70-100 [facility] Comment on above: Performed By: #### 8 5499 #### [facility] [address] [place] [address], [place] RBC'S 2 UNITSon 08-17-2018 CROSSMATCH INTERP 1 COMP Normal [facility] Comment on above: Performed By: #### 8 6002 #### [facility] [address] [place] [address], [place] CROSSMATCH INTERP 2 COMP Normal [facility] Comment on above: Performed By: #### 8 6002 #### [facility] [address] [place] [address], [place] PRODUCT CODE 1 E0336 Normal [facility] Comment on above: Performed By: #### 8 6002 #### [facility] [address] [place] [address], [place] PRODUCT CODE 2 E0336 Normal The [facility] Comment on above: Performed By: #### 8 6002 #### [facility] [address] [place] [address], [place] PRODUCT STATUS 1 RE Normal [facility] Comment on above: Result Comment: Resu lt changed by IF on 08/20/2018 07:48. The previous value was XM. Performed By: #### 8 6002 #### [facility] [address] [place] [address], [place] PRODUCT STATUS 2 RE Normal The [facility] Comment on above: Result Comment: Resu lt changed by IF on 08/20/2018 07:48. The previous value was XM. Performed By: #### 8 6002 #### [facility] [address] [place] [address], [place] UNIT ABO 1 A Normal [facility] Comment on above: Performed By: #### 8 6002 #### [facility] [address] [place] [address], [place] UNIT ABO 2 A Normal The [facility] Comment on above: Performed By: #### 8 6002 #### [facility] [address] [place] [address], [place] UNIT ID 1 [id number] Normal The [facility] Comment on above: Performed By: #### 8 6002 #### [facility] [address] [facility] UNIT ID 2 [id number] Normal The [facility] Comment on above: Performed By: #### 8 6002 #### [facility] [address] [facility] UNIT RH 1 Positive Normal [facility] Comment on above: Performed By: #### 8 6002 #### [facility] [address] [facility] UNIT RH 2 Positive Normal [facility] Comment on above: Performed By: #### 8 6002 #### [facility] [address] *MRSA/MSSA CULTUREon 018 *MRSA/MSSA CULTURE Clinical Report: (D) Specimen: NASAL SWAB Collected: 08/02/2018 12:37 Status: Final Last Updated: 08/03/2018 14:26 ISO (Final) No Methicillin Resistant Staphylococcus aureus Isolated (MRSA) ISO (Final) Methicillin Sensitive Staphylococcus aureus (MSSA) Isolated Normal [facility] Comment on above: Performed By: #### 3 1302 #### [facility] [address] APTTon 08-02-2018 aPTT Coag (Bld) [Time] [...] THIS PURPOSE. Performed By: #### 5 7307, 44488 #### [facility] [address] [place] [address], [place] BASIC METABOLIC PANELon 11-2 Calcium [Mass/Vol] 9.4 mg/dL Normal 8.6-10.3 The [facility] Comment on above: Performed By: #### 0 0071 #### [facility] [address] [place] [address], [place] Chloride [Moles/Vol] 103 mmol/L Normal 98-107 The [facility] Comment on above: Performed By: #### 0 0071 #### [facility] [address] [place] [address], [place] CO2 [Moles/Vol] 29 mmol/L Normal 21-31 The [facility] Comment on above: Performed By: #### 0 0071 #### [facility] [address] [place] [address], [place] Creatinine [Mass/Vol] 1.06 mg/dL Normal 0.70-1.30 The [facility] Comment on above: Performed By: #### 0 0071 #### [facility] [address] [place] [address], [place] GFR/1.73 sq M predicted among blacks MDRD (S/P/Bld) [Vol rate/Area] mL/min/{1.73_m2} Normal >60 The [facility] Comment on above: Performed By: #### 0 0071 #### [facility] [address] [place] [address], [place] GFR/1.73 sq M predicted among non-blacks MDRD (S/P/Bld) [Vol rate/Area] mL/min/{1.73_m2} Normal >60 The [facility] Comment on above: Performed By: #### 0 0071 #### [facility] [address] [place] [address], [place] Glucose [Mass/Vol] 84 mg/dL Normal 70-100 The [facility] Comment on above: Performed By: #### 0 0071 #### [facility] [address] Potassium [Moles/Vol] 4.0 mmol/L Normal 3.5-5.1 The [facility] Comment on above: Performed By: #### 0 0071 #### [facility] [address] Sodium [Moles/Vol] 140 mmol/L Normal 136-145 The [facility] Comment on above: Performed By: #### 0 0071 #### [facility] [address] Urea nitrogen [Mass/Vol] 20 mg/dL Normal 7-25 The [facility] Comment on above: Performed By: #### 0 1 #### [facility] [address] CBC W/DIFFon 08-02-2018 ABS BASOPHILS 0.1 10*3/uL Normal 0.0-0.2 The [facility] Comment on above: Performed By: #### 5 102 #### [facility] [address] ABS IMM GRANS 0.1 10*3/uL Normal 0.0-0.2 The [facility] Comment on above: Performed By: #### 5 102 #### [facility] [address] ABS NEUTROPHILS 4.2 10*3/uL Normal 1.6-7.6 The [facility] Comment on above: Performed By: #### 5 102 #### [facility] [address] Basophils/100 WBC (Bld) 1.3 % High 0.0-1.0 The [facility] Comment on above: Performed By: #### 5 0103 #### [facility] [address] [place] [address], [facility] Eosinophils (Bld) [#/Vol] 0.1 10*3/uL Normal 0.0-0.5 The [facility] Comment on above: Performed By: #### 5 0103 #### [facility] [address] [place] [address], [facility] Eosinophils/100 WBC (Bld) 2.0 % Normal 0.0-6.0 The [facility] Comment on above: Performed By: #### 5 0103 #### [facility] [address] [facility] [address] Erythrocyte distribution width (RBC) [Ratio] 13.6 % Normal 11.5-15.0 The [facility] Comment on above: Performed By: #### 5 0103 #### [facility] [address] [facility] Hematocrit (Bld) [Volume fraction] 44.3 % Normal 39.0-50.0 The [facility] Comment on above: Performed By: #### 5 0103 #### [facility] [address] [place] [address], [facility] Hemoglobin (Bld) [Mass/Vol] 15.1 g/dL Normal 13.0-17.0 The [facility] Comment on above: Performed By: #### 5 0103 #### [facility] [address] [facility] [place] [address], [facility] IMMATURE GRANS 1.1 % High 0.0-1.0 [facility] Comment on above: Performed By: #### 5 0103 #### [facility] [address] [place] [address], [facility] Lymphocytes (Bld) [#/Vol] 1.2 10*3/uL Normal 1.2-4.0 The [facility] Comment on above: Performed By: #### 5 3 #### [facility] [address] [facility] [place] [address], [facility] Lymphocytes/100 WBC (Bld) 18.3 % Low 20.0-45.0 The [facility] Comment on above: Performed By: #### 3 #### [facility] [address] [facility] [place] [address], [facility] MCH (RBC) [Entitic mass] 29.0 pg Normal 27.0-33.0 The [facility] Comment on above: Performed By: #### 3 #### [facility] [address] [facility] [place] [address], [facility] MCHC (RBC) [Mass/Vol] 34.1 g/dL Normal 32.0-35.0 The [facility] Comment on above: Performed By: #### 3 #### [facility] [address] [facility] [address] MCV (RBC) [Entitic vol] 85.0 fL Normal 82.0-98.0 The [facility] Comment on above: Performed By: #### 102 #### [facility] [address] [facility] [place] [address], [facility] Monocytes (Bld) [#/Vol] 0.7 10*3/uL Normal 0.1-1.0 The [facility] Comment on above: Performed By: #### 3 #### [facility] [address] [place] [address], [facility] MONOS 11.1 % Normal 5.0-12.0 The [facility] Comment on above: Performed By: #### 3 #### [facility] [address] [place] [address], [facility] Neutrophils/100 WBC (Bld) 66.2 % Normal 40.0-72.0 The [facility] Comment on above: Performed By: #### 5 0103 #### [facility] [address] [place] [address], [facility] Nucleated RBC/100 WBC (Bld) [Ratio] 0 % Normal 0-0 The [facility] Comment on above: Performed By: #### 5 0103 #### [facility] [address] [place] [address], [facility] PLAT CNT 179 10*3/uL Normal 150-400 The [facility] Comment on above: Performed By: #### 5 0103 #### [facility] [address] [place] [address], [facility] RBC (Bld) [#/Vol] 5.21 10*6/uL Normal 4.20-5.70 The [facility] Comment on above: Performed By: #### 5 0103 #### [facility] [address] [place] [address], [facility] WBC (Bld) [#/Vol] 6.39 10*3/uL Normal 4.00-10.60 The [facility] Comment on above: Performed By: #### 5 0103 #### [address] CERVICAL SPINE 4 OR 5 VIEWSo n 08-02-2018 CERVICAL SPINE 4 OR 5 VIEWS [facility] Department of Radiology [address] [place] [id number] ======== Patient Name: MATTY GARCES : 1970 Sex: M Age: Race: White Pt. Location: Patient Status: D Ordered Date: 08/02/2018 1:05:00 PM Completed Date: 08/02/2018 01:29 PM Requesting Provider: LUCIANO DAVIS Attending Provider: LUCIANO DAVIS Report Copy To: MIL VENUS Signs & Symptoms: Z01.89 Encounter for other specified special examinations I10 History: [place] Comments: , PREOP XRAY AP/LAT \EANDE\ FLEX/EX [...] findings. Electronically signed by:Bella King. Transcribed by: [email or web address], User Resident: KENNETH DUVAL Electronically Signed by: [...] CHEST 1995;108:231S-246S. Performed By: #### 5 7307, 33223 #### [facility] [address] [place] [address], [facility] PT Coag (PPP) [Time] 14.7 s Normal 12.3-14.8 The [facility] Comment on above: Result Comment: ALL RESULTS MUST BE INTERPRETED WITH RESPECT TO BLOOD DRAWING ARTIFACT OR DILUTION ERROR OF ANTICOAGULANT AT THE TIME OF SAMPLING. Performed By: #### 5 7307, 97498 #### [facility] [address] [place] [address], [facility] TYPE AND SCREENon 08-02-2018 ABO INTERPRETATION A Normal The [facility] Comment on above: Order Comment: 2 uni ts 2 units 2 units 2 units 2 units Performed By: #### 6 2586 #### [facility] [address] [place] [address], [facility] RH INTERPRETATION Positive Normal The [facility] Comment on above: Order Comment: 2 uni ts 2 units 2 units 2 units 2 units Performed By: #### 6 2586 #### [facility] [address] [place] [address], [facility] URINALYSIS REFLEXon 08-02-20 18 Appearance (U) CLEAR Normal CLEAR The [facility] Comment on above: Performed By: #### 3 0965 #### [facility] [address] [place] [address], [facility] Bilirubin [Mass/Vol] Negative Normal NEGATIVE The [facility] Comment on above: Performed By: #### 3 0965 #### [facility] [address] [place] [address], [place] BLOOD Negative Normal NEGATIVE The [facility] Comment on above: Performed By: #### 3 0965 #### [facility] [address] [place] [address], [place] Color (U) YELLOW Normal YELLOW The [facility] Comment on above: Performed By: #### 3 0965 #### [facility] [address] [facility] [place] [address], [place] Glucose [Mass/Vol] 150 mg/dL Abnormal NEGATIVE The [facility] Comment on above: Performed By: #### 3 0965 #### [facility] [address] [facility] [place] [address], [place] KETONE Negative Normal NEGATIVE The [facility] Comment on above: Performed By: #### 3 0965 #### [facility] [address] [place] [address], [place] Negative Normal NEGATIVE The [facility] Comment on above: Performed By: #### 3 0965 #### [facility] [address] [place] [address], [facility] MICRO NOT DONE negative chemical reactions unless requested in original order Normal The [facility] Comment on above: Performed By: #### 3 0965 #### [facility] [address] [place] [address], [facility] Nitrite Ql (U) Negative Normal NEGATIVE [facility] Comment on above: Performed By: #### 3 0965 #### [facility] [address] pH (Bld) 5.0 Normal 5.0-8.0 [facility] Comment on above: Performed By: #### 3 0965 #### [facility] [address] Protein (U) [Mass/Vol] Negative Normal NEGATIVE [facility] Comment on above: Performed By: #### 3 0965 #### [facility] [address] SPEC GRAV 1.024 High 1.015-1.020 The [facility] Comment on above: Performed By: #### 3 0965 #### [facility] [address] Vital Signs Date Time Vital Sign Value Performing Clinician Facility 04-04-2025 11:03040 Body height 188 cm Rubén Geiger MD Work Phone: [facility] 04-04-2025 11:03040 Body mass index (BMI) [Ratio] 34.02 kg/m2 Rubén Geiger MD Work Phone: [facility] 04-04-2025 11:03040 Body weight 120.2 kg Rubén Geiger MD Work Phone: [facility] 04-04-2025 11:03-0400 Diastolic blood pressure 90 mm[Hg] Rubén Geiger MD Work Phone: [facility] 04-04-2025 11:03-0400 Heart rate 114 /min Rubén Geiger MD Work Phone: [facility] 04-04-2025 11:03-0400 Systolic blood pressure 114 mm[Hg] Rubén Geiger MD Work Phone: [facility] 01-03-2025 14:44-0400 Body height 188 cm Rubén Geiger MD Work Phone: [facility] 01-03-2025 14:44-0400 Body mass index (BMI) [Ratio] 35.31 kg/m2 Rubén Geiger MD Work Phone: [facility] 01-03-2025 14:44-0400 Body weight 124.74 kg Rubén Geiger MD Work Phone: [facility] 07-03-2024 14:45-0400 Body height 188 cm Rubén Geiger MD Work Phone: [facility] 07-03-2024 14:45-0400 Body mass index (BMI) [Ratio] 37.62 kg/m2 Rubén Geiger MD Work Phone: [facility] 07-03-2024 14:45-0400 Body weight 132.9 kg Rubén Geiger MD Work Phone: [facility] 02-25-2022 10:30-0400 Blood Pressure Location Viola Lue [facility] 02-25-2022 10:30-0400 Diastolic blood pressure 107 mm[Hg] Viola Lue [facility] 02-25-2022 10:30-0400 Heart rate 74 /min Viola Lue [facility] 02-25-2022 10:30-0400 Respiratory rate 16 /min Viola Grullon [facility] 02-25-2022 10:30-0400 Systolic blood pressure 157 mm[Hg] Viola Grullon [facility] Encounters Encounter Date Encounter Type Care Provider Facility Start: 06-20-2025 End: 06-20-2025 ambulatory Venus Jaeger MD Work Phone: [facility] Work Phone: Start: 06-20-2025 End: 06-20-2025 Departed Referred Bonnie Ernandez MD -LAB Path Spec [facility] Start: 05-29-2025 End: 05-29-2025 Patient encounter procedure Jameel Coats DO -CT Scan [facility] Work Phone: Start: 05-29-2025 End: 05-29-2025 ambulatory Venus Jaeger MD Work Phone: [facility] Work Phone: Start: 05-15-2025 End: 05-16-2025 Corie Miguel NP Work Phone: [facility] Comment on above: Excessive daytime sl eepiness; Primary insomnia Excessive daytime sl eepiness; Obstructive sleep apnea Start: 05-07-2025 End: 05-07-2025 ambulatory Venus Jaeger MD Work Phone: [facility] Work Phone: Start: 05-07-2025 End: 05-07-2025 Patient encounter procedure Jameel Coats DO -[facility] [place] Work Phone: Start: 04-04-2025 End: 04-04-2025 Bamboo flowsheet Rubén Geiger MD Work Phone: [facility] Start: 04-04-2025 End: 04-04-2025 Bamboo flowsheet Rubén Geiger MD Work Phone: [facility] Start: 04-04-2025 End: 04-04-2025 Office outpatient visit 25 minutes Rubén Geiger MD Work Phone: [facility] Comment on above: Narcolepsy cataplexy syndrome (HCC) (Primary Dx); Excessive daytime sleepiness; Cervical disc disorder; Intractable chronic migraine with aura with status migrainosus Start: 04-04-2025 End: 04-04-2025 ambulatory RUBÉN GEIGER Not Available Start: 03-05-2025 End: 03-06-2025 Clinisync Result Encounter Jess HOOYS Work Phone: [facility] External Department Unsolicited Start: 03-05-2025 End: 03-06-2025 Clinisync Result Encounter Jess HOYOS Work Phone: [facility] External Department Unsolicited Start: 01-03-2025 End: 01-03-2025 Office outpatient visit 25 minutes Rubén Geiger MD Work Phone: [facility] Comment on above: Primary narcolepsy w ith cataplexy (CMS/HCC) (Primary Dx); Excessive daytime sleepiness; Obstructive sleep apnea Start: 01-03-2025 End: 01-03-2025 ambulatory RUBÉN GEIGER Not Available Start: 01-03-2025 End: 01-03-2025 Bamboo flowsheet Rubén Geiger MD Work Phone: [facility] Start: 01-03-2025 End: 01-03-2025 Bamboo flowsheet Rubén Geiger MD Work Phone: [facility] Start: 12-11-2024 End: 12-11-2024 ambulatory RUBÉN GEIGER Not Available Start: 12-11-2024 End: 12-11-2024 Office outpatient visit 25 minutes Rubén Gieger MD Work Phone: [facility] Comment on above: 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); Cervical paraspinal muscle spasm; Degeneration of intervertebral disc of lumbosacral region with discogenic back pain and lower extremity pain; Narcolepsy cataplexy syndrome (CMS/HCC) Start: 11-14-2024 End: 11-14-2024 Telephone encounter Liz Israel Other Phone: [facility] Start: 10-12-2024 End: 10-12-2024 Telephone encounter Heather Miguel PATTERN DRUM MAKER Work Phone: [facility] 210 Start: 10-08-2024 Evaluation and manag ement of inpatient LEONIE [facility] Start: 10-08-2024 End: 10-11-2024 Evaluation and management of inpatient ARMANDO BERG [facility] Start: 10-02-2024 End: 10-02-2024 [address]ill Marianna Sheehan LPN [facility] 210 Comment on above: Excessive daytime sl eepiness; Obstructive sleep apnea Start: 09-28-2024 Evaluation and manag ement of inpatient MARIANNA SUAREZ [facility] Start: 09-25-2024 Evaluation and manag ement of inpatient MARILOU ISRAEL [facility] Start: 09-25-2024 Evaluation and manag ement of inpatient [facility] Start: 09-24-2024 Evaluation and manag ement of inpatient [facility] Start: 09-24-2024 Evaluation and manag ement of inpatient SANDRINE HAHN [facility] Start: 09-24-2024 Evaluation and manag ement of inpatient [facility] Start: 09-23-2024 Emergency department patient visit [facility] Start: 09-23-2024 Emergency department patient visit [facility] Start: 09-23-2024 Emergency department patient visit TONIO AMEGEE [facility] Start: 09-23-2024 End: 09-28-2024 Evaluation and management of inpatient SERA WAYNE [facility] Start: 09-21-2024 End: 09-21-2024 [facility] Work Phone: Start: 09-21-2024 End: 09-21-2024 Departed Referred Trey Vallejo DPM Work Phone: [facility] Start: 07-04-2024 End: 07-05-2024 Telephone encounter Rubén Geiger MD Work Phone: [facility] 210 Start: 07-03-2024 End: 07-03-2024 Office outpatient visit 25 minutes Rubén Geiger MD Work Phone: [facility] Comment on above: Excessive daytime sl eepiness (Primary Dx); Obstructive sleep apnea; Primary insomnia; Cubital tunnel syndrome on right Start: 07-03-2024 End: 07-03-2024 ambulatory RUBÉN GEIGER Not Available Start: 07-03-2024 End: 07-03-2024 Bamboo flowsheet Rubén Geiger MD Work Phone: [facility] NEUROLOGY Start: 07-03-2024 End: 07-03-2024 Bamboo flowsheet Rubén Geiger MD Work Phone: [facility] Start: 05-10-2024 End: 05-11-2024 Refill Rubén Geiger MD Work Phone: [facility] Comment on above: Primary insomnia Start: 01-03-2024 End: 01-03-2024 ambulatory DPM Trey Vallejo Work Phone: [facility] Work Phone: Start: 01-03-2024 End: 01-03-2024 Departed Referred DPM Trey Vallejo Work Phone: [facility] [place] [facility] Start: 11-29-2023 End: 11-30-2023 ambulatory Diallo Faustitis Facility:[facility] Start: 10-18-2023 End: 10-19-2023 ambulatory Diallo Faustitis Facility:[facility] Start: 08-30-2023 End: 08-31-2023 ambulatory Andisai Faustitis Facility:[facility] Start: 07-12-2023 End: 07-13-2023 ambulatory Andikeus Woo Faustitis Facility:[facility] Start: 06-14-2023 End: 06-15-2023 ambulatory Andikeus Woo Faustitis Facility:[facility] Start: 12-06-2022 End: 12-06-[address] VENUS JAEGER . Facility:[facility] Start: 12-05-2022 Encounter for genera l adult medical examination without abnormal findings DR VENUS JAEGER . [facility] Start: 12-01-2022 End: 12-02-2022 [...] Viola Grullon [facility] Start: 01-04-2022 End: 01-05-[address] VENUS JAEGER . Facility: Start: 01-30-2019 End: 02-01-2019 Evaluation and management of inpatient PROVIDER UNKNOWN Facility:[facility] Start: 08-17-2018 End: 08-18-2018 Patient encounter procedure PROVIDER UNKNOWN Facility:[facility] Procedures Date Procedure Procedure Detail Performing Clinician Start: 05-29-2025 CT of lower leg with out contrast Venus Jaeger MD Work Phone: Start: 03-05-2025 ECG 12-LEAD Jess HOYOS Work Phone: Start: 12-01-[address] FRANKLIN JAEGER . Comment on above: Performed By: #### P [facility] #### [facility] [address] [place] [address] Dr. Shabnam Rae Start: 01-30-2019 FUSION CERV JT W INT BD FUS DEV, ANT APPR A COL, OPEN AZEDINE [facility] Start: 01-30-2019 REMOVAL OF INT FIX F ROM CERVCAL VERTEBRA, OPEN APPROACH AZ[facility] Start: 01-23-2019 Antibody screen PROVIDE R UNKNOWN Comment on above: Performed By: #### 5 [id number], [id number] #### [facility] [address] [facility] Start: 08-17-2018 ANESTH SPINE CORD SURGERY [...] units Performed By: #### 6 [id number] #### [facility] [address] Start: 02-08-1998 H/O: vasectomy History of vasectomy Rubén Geiger MD Work Phone: Colonoscopy Viola Grullon Hemorrhoids (disorder) Viola Grullon Hernia of abdominal cavity (disorder) Viola Grullon Tonsillectomy Viola Grullon Plan of Treatment Date Care Activity Detail Author Start: 06-27-2025 End: 06-27-2025 Patient encounter procedure [facility] Start: 05-14-2025 Influenza vaccination Influenza Vacc ine (#1) [facility] Start: 04-04-2025 End: 04-04-2025 Patient encounter procedure [facility] Comment on above: Arrived Start: 01-03-2025 End: 01-03-2025 Patient encounter procedure [facility] Comment on above: Arrived Start: 10-04-2024 End: 10-04-2024 Patient encounter procedure 10/04/2024 2:20 PM EST Office Visit [facility] [address] [facility] [address] [place] [address] Rubén Geiger MD 0239 [facility] [address] [address] [facility] Start: 09-21-2024 Superficial Wound Culture Superficial Wound Culture [facility] Start: 07-03-2024 End: 07-03-2024 Patient encounter procedure [facility] Comment on above: Arrived Start: 05-14-2024 Influenza vaccination Influenza Vacc ine (#1) [facility] Start: 1970 Screening for malign ant neoplasm of colon [facility] Bacteria identified in Unspecified specimen by Aerobe culture [facility] CT Lower leg - right W contrast IV [facility] XR Tibia and Fibula - right 2 Views [facility] Immunizations Immunization Date Immunization Notes Care Provider Fa cility 07-07-2024 influenza virus vacc ine, unspecified formulation Rubén Geiger MD Work Phone: [facility] 07-06-2023 influenza virus vacc ine, unspecified formulation Rubén Geiger MD Work Phone: [facility] Payers Date Payer Category Payer Self-pay [id number] 2022 Medicaid [id number] 2022 Medicaid [id number] 2022 Unknown 1970 Unknown [id number] 2.16.8 40.1.216330.3.579.2.647 1970 Unknown [id number] 2.16.8 40.1.723584.3.579.2.647 1970 Unknown [id number] 2.16.84 0.1.391607.3.579.2.593 1970 Unknown [id number] 2.16.84 0.1.351243.3.579.2.593 1969 Unknown [id number] 2.16.84 0.1.029677.3.579.2.593 1969 Unknown [id number] 2.16.84 0.1.040624.3.579.2.593 1969 Unknown [id number] 2.16.84 0.1.860377.3.579.2.593 1969 Unknown [id number] 2.16.84 0.1.573084.3.579.2.593 1969 Unknown [id number] 2.16. 840.1.786319.3.579.2.196 1970 Unknown [id number] 2.16. 840.1.413683.3.579.2.196 1969 Unknown [id number] 2.16. 840.1.868331.3.579.2.196 1969 Unknown [id number] 2.16. 840.1.279185.3.579.2.196 1969 Unknown [id number] 2.16. 840.1.741837.3.579.2.196 1969 Unknown [id number] 2.16.8 40.1.594389.3.579.2.1259 1969 Unknown [id number] 2.16.84 0.1.769839.3.579.2.1259 1969 Unknown [id number] 2.16.84 0.1.931718.3.579.2.1259 1969 Unknown [id number] 2.16.84 0.1.506425.3.579.2.1259 1959 Unknown [id number] Unknown [id number] Unknown [id number] 2.16.8 40.1.856139.3.579.2.531 Unknown [id number] 2.16.8 40.1.094589.3.579.2.531 Unknown [id number] 2.16.8 40.1.039848.3.579.2.531 Social History Date Type Detail Facility Tobacco smoking status No Smokin g Status Entered [facility] [facility] Start: 03-27-2024 End: 07-03-2024 Sex Assigned At Male [facility] Start: 05-15-2018 End: 05-15-2018 Tobacco smoking status NHIS Ex-smoker (finding) [facility] Start: 1970 Sex Assigned At Male [facility] Start: 03-11-2023 [facility] Start: 03-11-2023 Tobacco use and exposure Smokeless tobacco non-user [facility] Start: 03-27-2024 End: 07-03-2024 Alcoholic beverage intake Ex-drinker (finding) [facility] Start: 03-27-2024 End: 07-03-2024 History of Social function [facility] Start: 1970 Sex assigned at Not on file [facility] Start: 09-22-2024 Sex Male (finding) [facility] Functional Status Date Assessment Result Facility 02-25-2022 Functional Status N/A [facility] [employer] [facility] Clinical Notes 02-25-2022 to 05-29-2025 Telephone Encounter - Heather Miguel NP - 05/16/2025 8:45 AM EDTTelephone Encounter - Heather Miguel, PATTERN DRUM MAKER - 05/16/2025 8:45 AM EDT Note Date & Type Note Facility 05-29-2025 Radiology Diagnostic study note [facility] Main [place] [address] [place], [place] [id number] CT Scan Report Signed Patient: Matty Garces MR#: [id number] : 1970 Acct:[id number] Age/Sex: 54 / M ADM Date: 5 Loc: CT Room: Type: [facility] CLI Attending Dr: Jameel Coats [...] Irving M.D. 05/29/2025 11:40 PM Dictation Location: [facility]--17 Transcribed By: [facility] 05/29/252339 Dictated By: Francis Irving II, MD 05/29/252328 Signed By: 05/29/252339 [facility] Work Phone: 05-16-2025 Telephone encounter Note OARRS reviewed [facility] 05-16-2025 Miscellaneous Notes OARRS reviewed documented in this encounter [facility] 05-07-2025 Evaluation note Diagnosis Onset Date Resolution Hypertrophy of bone of lower leg noneactive May 07 11:21am Fracture of right tibia and fibula noneactive May 07 11:21am Right leg pain noneactive April 11:21am [facility] Work Phone: 1(973) 351-457607-23-2025 History of Present illness Narrative* Rubén Geiger [...] in all four extremities, including at least sports medicine trainer, finger abductors, biceps, triceps, deltoid, toe flexors [...] refill for Xywav will be sent to [facility]. If symptomspersist or worsen, further [...] up in 3 months. documented in this encounterExcelsior Springs Medical [id number] History of Present illness Narrative* Rubén Geiger [...] 1 mg, Oral, 2 times daily HYDROcodone-acetaminophen ([place]) 5-325 MG tablet hydrOXYzine pamoate (Vistaril) 25 [...] in all four extremities, including at least sports medicine trainer, finger abductors, biceps, triceps, deltoid, toe flexors [...] Increase Xywav to 6mg documented in this encounterExcelsior Springs Medical [id number] History of Present illness Narrative* Rubén Geiger [...] 1 mg, Oral, 2 times daily HYDROcodone-acetaminophen ([place]) 5-325 MG tablet hydrOXYzine pamoate (Vistaril) 25 [...] in all four extremities, including at least sports medicine trainer, finger abductors, biceps, triceps, deltoid, toe flexors [...] intracranial or extracranial stenosis. documented in this [facility]03-04-2025 Telephone encounter Note* Telephone Encounter - Isabella Manzano - 11/14/2024 9:49 AM EST Pt called for refill on Zofran. [facility] Work Phone: 1(737) 220-440303-04-2025 Miscellaneous Notes* Telephone Encounter - Isabella Manzano - 11/14/2024 9:49 AM EST Pt called for refill on Zofran. documented in this [facility]01-30-2025 Telephone encounter Note* Telephone Encounter - [...] sent and if I search patient chat. [facility] [id number] Miscellaneous Notes* Telephone Encounter - Heather Miguel NP - 10/12/2024 7:20 PM EST Did we send in Xywav REMS form for this patient? [facility] the form we sent in had white out on the titration section on the form. They need new form without white out on it? I do notsee anything in media sent and if I search patient chat. documented in this encounterExcelsior Springs Medical [id number] NoteOccupational Therapy Occupational Therapy Treatment Note Patient [...] going to put in a elba toilet. (Bracelet And Brooch Maker suggesting a RTS or to have son put in toilet however, pt stated that he will replace the toilet himself) Objective 1 Pt was up in chair at [facility] with on her way. Objective 2 Bracelet And Brooch Maker provided education on home and bathroom safety. [...] Hearing Intact Communication Intact Skin: Discoloration of Rio HARP's Edema: None noted Balance: Sitting Static Balance: [...] dressing techniques however was able to bring [place] HARP up to demo ability to reach for [...] endurance, Decreased functional mobility, Decreased IADLs OT Assessment/HVAC/R SERVICE TECHNICIAN Summary: Pt is progressing toward goals but [...] A Little (Min [place] (more content not included)...[facility] 10-11-2024 NoteHospital Medicine Discharge Summary Final Discharge Diagnosis: Left leg cellulitis Open wound of left great toe HTN Anxiety disorder Chronic combined systolic and diastolic Congestive heart failure, NYHA II Closed fracture of right fibula and tibia Admission Diagnosis: Left leg cellulitis [L03.116] Cellulitis of right lower extremity [L03.115] Cellulitis of left leg [L03.116] Hospital course: 54-year-old male who came from [facility] due to left lower extremity cellulitis. The [...] Time Provider Department Center 10/26/2024 2:50 PM MD BRITTANY Alfaro Your medication list START taking these medications [...] Medications These medications were sent to [facility] [place] [address] [address], [facility] [address] Phone (more content not included)...[facility] 10-11-2024 NotePharmacy Dosing Service - Vancomycin Follow [...] with comments or questions Thank you, Sudha Camacho PharmD, 10/11/24[facility]01-29-2025 Note Attestation signed by Sandrine Hahn MD [...] with any concerns via the Orthopaedic pager ([phone]) at any time. Jazzmine Casanova MD Orthopedic Surgery Resident, PGY 1[facility]01-28-2025 NoteHospital Medicine Daily Progress Note - 10/10/2024 6:40 PM; Room: [address] [place] [address] Admission: 10/08/2024 5:47 AM; Length of stay: 2 days THE HOSPITALIST TEAM PREFERS TO USE Cuídate CHAT FOR NON-URGENT COMMUNICATION 7AM-7PM. IF I DO NOT RESPOND WITHIN 20 MINUTES OR URGENT MATTERS, PLEASE CALL THROUGH THE POULTRY GRADER. FROM 7PM-7AM, PLEASE PAGE [phone](COVR). Code Status: Full Code Barriers to Discharge: [...] , FREET4 , CORTISOL , FEV1 , NHF8SEE , DLCO , RVSP , HDL , LDL No results found for: [id number] , IRON , TIBC , C3 , [...] Care Svc (06) PT (more content not included)...[facility]01-28-20[facility]SULT[facility] Reason for [...] Patient reports that he has followed with biology lecturer in [place] for many years for treatment of his left great toe DFU. States that is chronic and has been minimal healing progress until recently. Patient states he would like to resume care with this biology lecturer at discharge. He has not been able to see biology lecturer since previous discharge due to scheduling issues. [...] Tonya Lerner NP, 600 mg at 10/10/24 08 heparin (porcine) injection 5,000 Units, 5,000 Units, [...] on file Occupational Histor (more content not included)...[facility]01-28-2025 NotePhysical Therapy Physical Therapy Treatment Patient Name: [...] Stand Technique 1 S (more content not included)...[facility] 10-10-2024 Note. Pharmacy Dosing Service - Vancomycin [...] days. -Check BUN/SCr daily Altaf Martin, PharmD, 10/09/24[facility]01-27-2025 Note Occupational Therapy Occupational Therapy Evaluation Patient Name: Matty Garces : 1970 Today's Date: 10/09/2024 Time in:1504 Time out: 1526 Present Illness History: 54 y/o M presented from [facility] with R LE cellulitis. Patient [...] Level of Function Prior Function Level of Holly: Independent with ADLs and functional transfers, Independent [...] mobility, transfers and fu (more content not included)...[facility]01-27-2025 Note10/09/24 0909 Admission Assessment Questions Verify insurance [...] Status Interested Does the patient have a housing case manager assigned to them through their insurance? No Living Arrangement (Current/Prior to Hospitalization) Private residence (lives with ) Does the patient have history of HHC or SNF? Yes (Active with [facility]) Assistive Device Wheelchair;Bedside Commode;Walker Patient's goal for [...] able to send link and activate MyChart? [facility]01-27-2025 NoteHospital Medicine Daily Progress Note - 10/09/2024 12:13 PM; Room: [address] [place] [address] Admission: 10/08/2024 5:47 AM; Length of stay: 1 days THE HOSPITALIST TEAM PREFERS TO USE Cuídate CHAT FOR NON-URGENT COMMUNICATION 7AM-7PM. IF I DO NOT RESPOND WITHIN 20 MINUTES OR URGENT MATTERS, PLEASE CALL THROUGH THE POULTRY GRADER. FROM 7PM-7AM, PLEASE PAGE [phone](COVR). Code Status: Full Code Barriers to Discharge: [...] , FREET4 , CORTISOL , FEV1 , RZY9OCZ , DLCO , RVSP , HDL , LDL No results found for: [id number] , IRON , TIBC , C3 , [...] Planning Expected Discharge Disposition: Home-Health Care Svc () PT Discharge Recommendations: Home PT Signed C (more content not included)...[facility]01-27-2025 NotePhysical Therapy Physical Therapy Re-Evaluation Patient Name: Matty Garces : 1970 Today's Date: 10/09/2024 General Subjective: Attempted to see pt earlier today ([id number]) for mobility assessment. Pt deferred d/t pain [...] Exercise Therapeutic Exercise Therape (more content not included)...[facility] 10-09-2024 Note. Pharmacy Dosing Service - Vancomycin [...] state -Check BUN/SCr daily Altaf Martin, PharmD, 10/09/24[facility]01-27-2025 Note Orthopaedic Surgery Orthopaedic Surgery Progress Note [...] Rivas MD Orthopaedic Surgery, PGY-2 Ortho Pager [phone] 10/09/24 6:38 AM I am available via [employer] 6a-6p. May contact the on-call resident with any concerns via the Orthopaedic pager at any time.[facility]01-26-2025 NoteCase was discussed with the AYAKA on 10/08/2024. I agree with the history, physical, assessment, and plan of care. I discussed the findings and therapeutic plan. I agree with the documentation, except for any updates below. Fabiola Wade, [facility]01-26-2025 NotePhysical Therapy Evaluation Patient Name: Matty Garces Today's Date: 10/08/2024 Admit Date: 10/08/2024 Time In: 1:20pm Time Out: 1:45pm Cumulative minutes: 25 minutes Billed minutes: 25 minutes; 15 min eval; 10 min therapeutic exercise to review HEP x10 reps. History of present illness Per H&P: Matty Garces is an 54 y.o. male who came from [facility] with LLE cellulitis. Patient has PMH of hypertension, diastolic heart failure, GERD, anxiety. He recently was admitted here and had right leg tib/fib fracture and seen by our ortho team and had closed insertion with intramedullary wendy on 09/24/24 and was discharged home. He reports he went to [place] ER due to increased pain, swelling and [...] sustained for approximately 2 hours from approximately [id number]. Trauma team ordered a STAT ECG and [...] WB status. Objective assessment (more content not included)...[facility]01-26-2025 NotePharmacy Dosing Service - Vancomycin Initial Consult Note Pharmacy has been consulted for the dosing and evaluation of Drug: Vancomycin Indication: complicated skin and soft tissue infection AUC 400-600 mg*hr/L and trough 10-20 mcg/mL Other Antimicrobial Regimens: cefepime Labs and Renal Function Total body weight: 134 kg (295 lb) Bladen body weight: 82.2 kg (181 lb 3.5 [...] Comments: - 54 year old male from [place] with LLE cellulitis -Had intramedullary wendy placed [...] or questions Thank you, Altaf Martin, PharmD, 10/08/24[facility] Note Will consult wound careUnSt. Elizabeth Hospital01-26-2025 Note Continue vanco and zosyn Ortho following Will get blood culturesUnSt. Elizabeth Hospital01-26-2025 Note Continue citalopram, clonazepamUnSt. Elizabeth Hospital01-26-2025 NoteContinue modafinil, coregUnSt. Elizabeth Hospital01-26-2025 Note Not in exacerbation Continue furosemide, coreg, asaUnSt. Elizabeth Hospital01-26-2025 NoteOrtho following, concern for possible infection Admit to med surg Activity orders per ortho with LLE Cardiac diet Will get labs this morning and follow up on results Daily bmp and cbc to monitor kidney function, electrolytes, hgb and wbc Case will be discussed with attending physicianUnSt. Elizabeth Hospital01-26-2025 NoteHospital Medicine History and Physical 10/08/2024 7:26 AM THE HOSPITALIST TEAM PREFERS TO USE Cuídate CHAT FOR NON-URGENT COMMUNICATION 7AM-7PM. IF I DO NOT RESPOND WITHIN 20 MINUTES OR URGENT MATTERS, PLEASE CALL THROUGH THE POULTRY GRADER. FROM 7PM-7AM, PLEASE PAGE [phone](COVR). Chief Complaint Chief Complaint Patient presents with Cellulitis History of Present Illness Matty Garces is an 54 y.o. male who came from [facility] with LLE cellulitis. Patient has PMH of hypertension, diastolic heart failure, GERD, anxiety. He recently was admitted here and had right leg tib/fib fracture and seen by our ortho team and had closed insertion with intramedullary wendy on 09/24/24 and was discharged home. He reports he went to [place] [facility] due to increased pain, swelling and [...] this hospital stay by a member of [facility]. Past Medical History Past [...] Insecurity: No Food Insecurity (more content not included)...[facility]01-20-2025 Telephone encounter Note* Telephone Encounter - Marianna Sheehan LPN - 10/02/2024 2:19 PM EST Provigil refill request to [facility] sent to provider. Last appt. 07/03/24 [facility] [id number] Miscellaneous Notes* Telephone Encounter - Marianna Sheehan LPN - 10/02/2024 2:19 PM EST Provigil refill request to [facility] sent to provider. Last appt. 07/03/24 documented in this encounterExcelsior Springs Medical [id number] NoteTrauma team informed at approximately 1730 per [facility] that patient went into a-flutter and sustained for approximately 2 hours from approximately 4036-3661. Trauma team ordered a STAT ECG and [...] tonight, AMA AMA paperwork reviewed and signed [facility] Note09/28/24 1537 Home Oxygen Therapy Evaluation Pulse Oximetry on room air at Rest 94 Pulse Ox on room air while walking 96 Patient Qualification for home oxygen Does not qualify for home oxygen this visit (When pt is sleeping, apnea is noted and at times saturation drops but when pt is awake and moving his oxygenation is stable)[facility]01-16-2025 NoteUnGood [facility]itan [facility] Trauma Surgery Progress Note Subjective Patient [...] Value Ventricular Rate 82 Atrial Rate 82 KS Interval 164 QRS DURATION 92 QT Interval 386 QTC CALCULATION(BAZETT) 450 P Moline 61 R-Moline 18 T Wave Moline 69 Impression Normal sinus rhythm Normal ECG [...] for discharge. -Patient requesting discharge home with [facility], PT/OT recommending walker, commode, and rolling wheelchair.[facility]01-16-2025 Note Physical Therapy Physical Therapy Treatment Patient [...] EOB, commode, and recliner (more content not included)...[facility]01-16-2025 NoteOccupational Therapy Occupational Therapy Treatment Patient Name: [...] apnea) Gastroesophageal reflux disease Obese Co-tx with DRAWING BOX TENDER to facilitate purposeful activity, 2/2 high fall risk, impaired dyn standing balance & act tolerance, poor safety awareness, & poor safety awareness with STS, transfers, & functional ambulation; To maintain safety of patient & staff. 09/28/24 1358 OT Last Visit OT Received On 09/28/24 General Subjective I got my w/c 3rd hand...from my pelogr-fi-nkt. Treatment Duration (min) 55 Minutes Response to [...] not maintain precs. General Assessment Hearing mild [place] Skin Integrity ALVARO wrap to RLE, DFU to L great toe Grooming Grooming Level of Assistance Setup Grooming Where Assessed Other (Comment) (sitting on [facility]) Grooming Comments to complete facial care & oral care with cues for continuation, 2/2 perseverance. UE Bathing UE Bathing Level of Assistance Setup UE Bathing Where Assessed Other (Comment) ([facility]) UE Bathing Comments to complete 100% UBB sitting on [facility]. Cues for continuation, 2/2 perseveration. LE Bathing LE Bathing Level of Assistance Contact guard LE Bathing Where Assessed Other (Comment) ([facility]) LE Bathing Comments BLEs bathed sitting on [facility]; Pt stood with device for mary lou-hygiene & required CGA to maintain balance. UE Dressing UE Dressing Level of Assistance Setup UE Dressing Where Assessed Sitting in chair UE Dressing Comments to don gown Toileting Toileting Level of Assistance Contact guard Where Assessed Bedside commode Toileting Comments CGA during mary lou-care post BM, standing at [facility]. Unsteadiness present. Static Sitting Balance Static Sitting-Balance Support Feet supported Static Sitting-Level of Assistance Distant supervision Static Sitting-Comment/Number of Minutes Supervision for safety Dynamic Sitting Balance Dynamic Sitting-Balance Support Feet supported;Unilateral upper extremity supported Dynamic Sitting Balance-Level of Assistance Close supervision Dynamic Sitting-Comments SBA for safety scooting EOB, positioning on [facility] Static Standing Balance Static Standing-Balance Support With [...] mary lou-care & hygiene in stance at [facility] with RW. Add'l SBA for safety. Pt very unsteady with poor awareness. CGA during functional ambulation with device. Cues for safety awareness, & maintaining WB precs. Bed Mobility 1 Bed Mobility From 1 Supine Bed Mobility Type 1 To Bed Mobility to 1 Short sit Level of Assistance 1 Close superv (more content not included)...[facility]01-16-2025 NoteCalled [employer] by phone to check on status of pt's DME (wheelchair, walker, bedside commode). Was advised they did not receive it via [employer] and would need it direct faxed to [phone]. Faxed referral and was advised they will [...] to call . UPDATE 3:05PM- Spoke with [employer] again and was advised the wheelchair could [...] discharge around 6pm tonight. Also spoke with [facility] and was provided w/ fax [phone] to send AVS once ready. UPDATE 4:05PM- Direct faxed final AVS to [facility]01-16-2025 NoteUnGood [facility] Hospital Vascular and Wound Surgery DAILY PROGRESS [...] days Lab Units 09/28/24 0358 09/27/24 0351 09/26/2444609/25/2440609/24/24 0355 SODIUM mmol/L 135* 137 139 134* [...] 2. Unchanged cardiomediastinal silho (more content not included)...[facility]01-15-2025 NoteDischarge Planning: Home with [facility] The patient was accepted by [facility]. DME referral sent to [facility]. The patient would like the DME either delivered to the hospital or his home prior to discharge.[facility]01-15-2025 Note Occupational Therapy Occupational Therapy Treatment Patient Name: Matty Garces : 1970 Today's Date: 09/27/2024 Time in:1357 Time out:1450 Total time:53 minutes,23 min OT, additional for DRAWING BOX TENDER [place] provided to maximize safety as progressed [...] precautions etc Transfers 2 (more content not included)...[facility]01-15-2025 Note Physical Therapy Physical Therapy Treatment Patient Name: Matty Garces : 1970 Today's Date: 09/27/2024 Time Calculation Start Time 1357 Stop Time 1450 Time Calculation (min) 53 min PT Therapeutic Procedures Time Entry Therapeutic Activity Time Entry 26 Co-tx with ALTHAM to facilitate purposeful activity, 2/2 high fall [...] 1 for lift, balance, (more content not included)...[facility]01-15-2025 Note Attestation signed by Fahad Rizzo MD at 09/28/2024 7:41 AM Patient seen and examined with trauma team [facility] Trauma Surgery Progress Note Subjective Patient was [...] Value Ventricular Rate 82 Atrial Rate 82 KS Interval 164 QRS DURATION 92 QT Interval 386 QTC CALCULATION(BAZETT) 450 P Moline 61 R-Moline 18 T Wave Moline 69 Impression Normal sinus rhythm Normal ECG [...] for acute findings. Respiratory: (more content not included)...[facility] 09-26-2024 NotePer patients patient was to start with Radha Mendenhall [facility] on the day of admit. Referral made as requested. SW following.[facility]01-14-2025 NoteUnGood [facility]aritan Hospital Vascular and Wound Surgery DAILY PROGRESS NOTE Subjective Patient seen and examined at bedside. No acute events overnight. Vital signs stable. Denies pain to the left ulcer. Patient states he follows regularly with biology lecturer at [facility] and plans to follow-up with [...] BID simvastatin, 20 mg, oral, Nightly Imaging: [facility] Carotid Artery Duplex Bilateral Narrative: Procedure: [...] Increased oxygen requirements. COMPARISON: (more content not included)...[facility] 09-26-2024 NoteOccupational Therapy Occupational Therapy Treatment Note [...] on with B LE's elevated Objective 2 Bracelet And Brooch Maker discussed importance of discharging to facility for continued therapy prior to going home however, pt declines. Pt transfers are currently unsafe with writer producer questioning ability to maintain WB status. OT [...] Other Pt is impulsive during standing/transfer activities. Bracelet And Brooch Maker questions pts safety while at home. General [...] endurance, Decreased functional mobility, Decreased IADLs OT Assessment/HVAC/R SERVICE TECHNICIAN Summary: Pt would benefit from continued therapy [...] training, Endurance training, Patient/f (more content not included)...[facility]01-14-2025 NoteOrthopaedic Surgery Orthopaedic Surgery Progress Note Date: [...] Can be reached at the orthopedic pager: [phone] Luis Felipe Rivas MD 09/26/24 7:24 AM Ortho Pager: [phone]. Elizabeth Hospital01-14-2025 Note [facility] Trauma Surgery Progress Note Subjective Subjective: Patient [...] 138 kg (303 lb 9.2 oz) (09/26 043) Kennedy Coma Scale Score: 15 Intake/Output Summary [...] Value Ventricular Rate 82 Atrial Rate 82 KS Interval 164 QRS DURATION 92 QT Interval 386 QTC CALCULATION(BAZETT) 450 P Moline 61 R-Moline 18 T Wave M[place] 69 Impression Normal sinus rhythm Normal ECG [...] Syncopal workup -Telemetry monitori (more content not included)...[facility]01-13-2025 NotePt was seen early this morning about wearing BiPap for possible sleep apnea due to periods of apnea and decreased oxygen saturation overnight. Pt refused BiPap, stating he has tried it before and it gives him migraines. 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 Referral Reason Follow up;Information Patient Information Primary Caregiver Spouse Activities of Daily Living Assistive Device Walker;Wheelchair Behavior Oriented Communication Talks;Understands speaking Discharge Planning Living Arrangements Spouse/significant other Support Systems Spouse/significant other Type of Residence Private residence;[facility] (await name of agency from ) Post Acute Services In home services (agreeable to [facility]) Type of Home Care Services (Current) Skilled Home Servicies;Home OT;Home PT ([facility] was just going to start services before admit) Patient's goal for discharge home with [facility] Does the patient need discharge transport arranged? No () Screened by [facility]. Pt declines SNF placement and is agreeable to take pt home with [facility]. Await name of [facility] agency that was approved to start services. Pt will likely need RT for home O2. Will follow up with pt's for [facility] agency. thinks [facility] agency is [facility] or [facility]. SW will follow with referrals.[facility]01-13-2025 Note09/25/24 1312 Admission Assessment Questions Verify insurance with patient [...] Status Interested Does the patient have a housing case manager assigned to them through their insurance? No Living Arrangement (Current/Prior to Hospitalization) Private residence;Home self care Does the patient have history of HHC or SNF? Yes (pt could not remember the C agency name, neither could ) Assistive Device [...] Assessment completed with , patient deferred to .[facility]01-13-2025 NoteThe findings from this face to face encounter indicate the reason this patient requires a bedside commode. Patient is physically incapable of using regular toilet facilities. Patient is confined to 1 level of the home with no toilet on that level Marilou Tomlin APRN-[facility] Department of Surgery - Trauma [phone]01-13-2025 NoteThe findings from this face to face [...] is provided in the home Marilou Tomlin CHIEF CONTROLLER [employer] Department of Surgery - Trauma [phone]01-13-2025 NoteThe findings from this face to face [...] been discussed with the patient Marilou Tomlin APRN-[facility] Department of Surgery - Trauma [phone]01-13-2025 NotePhysical Therapy Physical Therapy Evaluation Patient Name: [...] male admitted 09/23/24 as a transfer from [facility] complaining of R tibial shaft [...] demo General Assessment General Assessment Hearing: mild [place] Skin Integrity: alvaro wrap to RLE, wound [...] Level of Function Prior Function Level of Holly: Independent with ADLs and functional transfers, Independent [...] deficits Perception Inattention/Neglect: A (more content not included)...[facility]01-13-2025 Note Attestation signed by Gabriel Seay MD [...] meet criteria for admission to IPR: Assessment: [place] fracture of the right tibial shaft and [...] Plan of Care: Patient with diagnosis of [place] fracture of the right tibial shaft and [...] oral, TID wit (more content not included)... [facility]01-13-2025 NoteOccupational Therapy Occupational Therapy Evaluation Patient Name: [...] carryover General Assessment General Assessment Hearing: Mild [place] Skin Integrity: ALVARO wrap to RLE, DFU [...] LLE heel WB de (more content not included)...[facility]01-13-2025 NoteOrthopaedic Surgery Orthopaedic Surgery Progress Note Date: [...] exam. IMPRESSION: Stable alignment following ORIF ASSESSMENT: Mtaty Garces is a 53 y.o. male POD [...] Rivas MD 09/25/24 7:02 AM Ortho Pager: [phone]. Elizabeth Hospital01-13-2025 Note [facility] Trauma Surgery Progress Note Subjective Subjective: Patient [...] Value Ventricular Rate 82 Atrial Rate 82 KS Interval 164 QRS DURATION 92 QT Interval 386 QTC CALCULATION(BAZETT) 450 P Moline 61 R-Moline 18 T Wave Moline 69 Impression Normal sinus rhythm Normal ECG [...] mary lou-colace an (more content not included)... [facility]01-12-2025 NoteUnGood Samaritan Hospital Vascular Surgery/Wound Care CONSULTATION Reason for Consult: Left foot ulcer Subjective History of Present Illness: Matty Garces is a 53 y.o. male with a PMH of DM, HTN, HF and recent cellulitis to [facility] . He is admitted for [...] rhythm. Pulmonary: Effort: Pulmonar (more content not included)...[facility]01-12-2025 NoteOrthopaedic Surgery Orthopaedic Surgery Progress Note Date: [...] BRO MD 09/24/24 10:29 PM Ortho Pager: [phone]. Elizabeth Hospital01-12-2025 Note Patient: Matty Garces Procedure Summary Date: 09/24/24 Room / Location: [facility] OPERATING [facility]OM 05 / [facility] Operating Room Anesthesia Start: 1020 Anesthesia Stop: [...] preop) Hydration status: acceptable No notable events documented.[facility]01-12-2025 Note Airway Date/Time: 09/24/2024 10:35 AM Urgency: elective General Information and Staff Patient location during procedure: OR Anesthesiologist: Jeffery Casey MD Resident/CAR CLEANING SUPERVISOR/CAA: Kenneth Marina MD Performed: resident/CAR CLEANING SUPERVISOR/CAA Indications and Patient Condition Indications for airway [...] approach: 1 Number of other approaches attempted: 0UnSt. Elizabeth Hospital 09-24-2024 NotePatient: Matty Garces Procedure Information Date/Time: 09/24/24 1000 Procedure: CLOSED INSERTION, INTRAMEDULLARY WENDY, TIBIA (Right: Leg Lower) Location: [facility] OPERATING [facility] 05 / [facility] Operating Room Surgeons: Sandrine Hahn MD Relevant [...] Value Ventricular Rate 97 Atrial Rate 97 KS Interval 156 QRS DURATION 84 QT Interval 368 QTC CALCULATION(BAZETT) 467 P Moline 54 R-Moline 60 T Wave Moline 12 Impression Normal sinus rhythm Normal ECG [...] discussed with attending and resident. Additional Equipment RequestsMetroHealth Main Campus Medical Center01-12-2025 Note Subjective Patient resting comfortably in bed. [...] wounds to LLE, wounds (more content not included)...[facility]01-12-2025 NotePhysical Therapy Name: Matty Garces Date of : 1970 Today's Date: 09/24/24 Pt is unable to be seen for therapy at this time secondary to Surgery today for fixation of frature. Will check back and complete therapy session as appropriate. Check No Charge Time attempted: 7822 Janet Lovelace PT, [facility]ITALUnSt[facility]01-12-2025 Note Orthopaedic Surgery Orthopaedic Surgery Progress [...] Rivas MD Orthopaedic Surgery, PGY-2 Ortho Pager [phone] 09/24/24 7:29 AM I am available via [employer] 6a-6p. May contact the on-call resident with any concerns via the Orthopaedic pager at any time.[facility]10-22-2024 Telephone encounter Note* Telephone Encounter - Nita Anthony - 07/04/2024 4:10 PM EDT left message regarding prescriptions earlier today and not being at pharmacy. I did call back and spoke to advising they were sent this afternoon. had mentioned Dr. Geiger was also going to start a Vitamin B to help boost energy in the morning. [employer] in [place]. [facility] [id number] Miscellaneous Notes* Telephone Encounter - Nita Anthony - 07/04/2024 4:10 PM EDT left message regarding prescriptions earlier today and not being at pharmacy. I did call back and spoke to advising they were sent this afternoon. had mentioned Dr. Geiger was also going to start a Vitamin B to help boost energy in the morning. [employer] in [place]. documented in this encounterExcelsior Springs Medical [id number] History of Present illness Narrative* Rubén Geiger [...] 1 mg, Oral, 2 times daily HYDROcodone-acetaminophen ([place]) 5-325 MG tablet hydrOXYzine pamoate (Vistaril) 25 [...] reflexes: Alycia's absent. Ankle clonus absent. Coordination Snritu-sb-agzs, rapid alternating movements and djpw-gc-foxi normal bilaterally without dysmetria. Gait Normal casual, [...] Follow up 3 months. documented in this encounterExcelsior Springs Medical [id number] NotePROCEDURE: XR FOOT LT MIN 3 VIEWS [...] Electronically authenticated by: ALVINA CAICEDO Date: 2022-03-26 10:47[facility]06-15-2022 Hospital Discharge instructions Patient Education 02/25/2022 11:09:43 [...] Watch the hydrocele for any changes. Take uamk-nfj-flohcbm and prescription medicines only as told by [...] 02/17/2011 Document Revised: 09/10/2018 Document Reviewed: 09/10/2018 [employer] Patient Education 2020 [employer]. 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 Excessive daytime sleepiness Cervical disc disorder Intractable chronic migraine with aura with status migrainosus documented in this encounter [facility] HealthcareEvaluation note* Diagnosis Onset Date Resolution Status Admit Date Hypertrophy of bone of lower leg noneactive May 07 11:21am Fracture of right tibia and fibula noneactive May 07 11:21am Right leg pain noneactive April 11:21am [facility] Work Phone: Evaluation note* Diagnosis Excessive daytime sleepiness Primary insomnia Persistent disorder of initiating or maintaining sleep documented in this encounter [facility] HealthcareEvaluation note* Diagnosis Excessive daytime sleepiness Obstructive sleep apnea Obstructive sleep apnea (adult) (pediatric) documented in this encounter [facility] HealthcareProgress note No data available for this section [facility] reason for referral (narrative)No reason for referral information availableC[facility] Work Phone: Summary Purpose Family History [...] May 11:42am Hospital Course Note MR#: [id number] [facility] Pt. Name: Matty Garces Admitted: 01/30/2019 [...] 2025 11 :21am Chief Complaint Admit Date [facility] NEW RT TIB FIB FX W POSSIBLE INFECTI ON WX [facility] May 07, 2025 11:21am Reason for Visit [...] CREATED AUTHOR 07/19/2019 [facility] DATE CREATED AUTHOR AUTHOR'S ORGANIZ ATION 02/27/2022 [facility] DATE CREATED AUTHOR AUTHOR'S ORGANIZ ATION 12/08/2022 [facility] DATE CREATED AUTHOR AUTHOR'S ORGANIZ ATION 12/03/2023 [facility] DATE CREATED AUTHOR AUTHOR'S ORGANIZ ATION 10/15/2024 [facility] DATE CREATED AUTHOR AUTHOR'S ORGANIZ ATION 04/05/2025 [facility] DATE CREATED AUTHOR AUTHOR'S ORGANIZ ATION 06/23/2025 [facility] Care Team (unrecognized sect ion and content) Team Status: Inactive Member Role Status Dates Trey Vallejo DPM MS Attending Provider Active Start: January 03, 2024 End: January 03, 2024 Medical Billing Clerk Relationship Specialty Start Date End Date Venus Jaeger MD [address] [place] [address] PCP - General Family Medicine 01/10/24 Medical Billing Clerk Relationship Specialty Start Date End Date Venus Jaeger MD [address] [place] [address] PCP - General Family Medicine 01/10/24 Medical Billing Clerk Relationship Specialty Start Date End Date Venus Jaeger MD [address] [place] [address] PCP - General Family Medicine 01/10/24 Medical Billing Clerk Relationship Specialty Start Date End Date Venus Jaeger MD [address] [place] [address] PCP - General Family Medicine 01/10/24 Team Status: Inactive Member Role Status Dates Trey Vallejo DPM MS Attending Provider Active Start: September 21, 2024 End: September 21, 2024 Medical Billing Clerk Relationship Specialty Start Date End Date Venus Jaeger MD [address] [place] [address] PCP - General Family Medicine 01/10/24 Medical Billing Clerk Relationship Specialty Start Date End Date Venus Jaeger MD [address] [place] [address] PCP - General Family Medicine 01/10/24 Medical Billing Clerk Relationship Specialty Start Date End Date Venus Jaeger MD [address] [place] [address] PCP - General Family Medicine 01/10/24 Medical Billing Clerk Relationship Specialty Start Date End Date Venus Jaeger MD [address] [place] [address] PCP - General Family Medicine 01/10/24 Medical Billing Clerk Relationship Specialty Start Date End Date Venus Jaeger MD [address] [place] [address] PCP - General Family Medicine 01/10/24 Medical Billing Clerk Relationship Specialty Start Date End Date Venus Jaeger MD PCP - General Family Medicine 01/10/24 Medical Billing Clerk Relationship Specialty Start Date End Date Venus Jaeger MD PCP - General Family Medicine 01/10/24 Medical Billing Clerk Relationship Specialty Start Date End Date Venus [...] May 07, 2025 End: May 07, 2025 Medical Billing Clerk Relationship Specialty Start Date End Date Venus Jaeger MD PCP - General Family Medicine 01/10/24 Medical Billing Clerk Relationship Specialty Start Date End Date Venus Jaeger MD PCP - General Family Medicine 01/10/24 Team Status: Inactive Member Role Status Dates Venus Jaeger MD Primary Care Provider Active Start: May 29, 2025 End: May 29, 2025 Jameel Coats DO Attending Provider Active S tart: May 29, 2025 End: May 29, 2025 Team Status: Inactive Member Role Status Dates Bonnie Ernandez MD Attending Provider Active Sta rt: June 20, 2025 End: June 20, 2025 Goals (unrecognized section and content) Goals [...] BE BASED ON THE PRIMARY CLINICAL RECORDS. [employer] provides no warranty or guarantee of the accuracy or completeness of information in this document.
== END 2025-06-27 13:24 | disposition home or self-care (01) ==
LOC: WC 13:23
PROVIDERS: PCP Family Medicine; Visit Provider Physician Assistant
DX: T87.89 Other complications of amputation stump (principal)
CPT/HCPCS: G0463

== ENCOUNTER 2025-07-10 11:24 | Outpatient (OUT) | payer MEDICAID, SELFPAY ==
--- OUTSIDE RECORDS SUMMARY | 2025-03-15 06:00 | XMS_ITS ---
Author Organization The [facility] in [place] Address [address] [place] [address] Care Team Providers Care Slot Operations Manager Name Role Phone Kareem Mendez Primary Care Provider [phone] REASON FOR VISIT [facility] d/c-624 LEG PAIN Encounters Encounter Location Date Provider Diagnosis [facility] [address] [place] [address] 03/15/2025 aKreem Mendez Plan Of Treatment Next Appt Details Provider Name:Kareem Mendez, 10:45:00 AM, [address] [place], [address], Progress Notes * Alden WADE TDOB: 0 (54 yo M)Acc No.[id number]:03/15/2025 UNLOCKED PROGRESS NOTE Progress Note Patient: Francisco Javier VAZQUEZw Toni :?Caden WhittMarilee Mendez ([facility]), MDDOB:1970???Age: 54 Y???Sex:MaleDate:03/15/2025Phone:[phone]:[address] [facility] [address], [place], [place] Subjective: * Chief Complaints: * 1 . tb d/c-6/24 LEG PAIN. * Medical History: Objective: * Vitals: Assessment: Plan: * Treatment: * * Electronic signature of Kareem Mendez MD, [id number] on 07/10/2025 at 11:28 AM EDT Sign off status: PendingVisit Status:?N/S N/C (No Show/No Charge) * Provider: Sarah Mendez ([facility])MD Date: 0 03/15/2025 Generated for Printing/Faxing/eTransmitting on:?07/10/2025 11:28 AM EDT
--- OUTSIDE RECORDS SUMMARY | 2025-06-28 05:45 | XMS_ITS ---
Author Organization [facility] [place] Address [address] [place] [address] Care Team Providers Care Counter Attendant Name Role Phone Kareem Mendez Primary Care Provider Allergies Allergen (clinical drug ingredient) Drug/Non Drug Allergy documented on EMR Reaction Allergy Type Onset Date Status hydrocodone Hydrocodone hives Drug Allergy ActivefentanylFentanylhivesDrug AllergyActive REASON FOR VISIT [facility] discharge 06-21-25- Left Great Toe Amputation- Dr Vallejo Medications Medication SIG (Take, Route, Frequency, Duration) Notes Start Date End Date Status Testosterone Cypionate 200 MG/ML Inject 0.75 mL Intramuscular WEEKLY; Duration: 28 days 5ActiveSUMAtriptan Succinate 100 MG1 tablet at least 2 hours between doses as needed Orally Twice a dayPRNActiveGlycopyrrolate 1 mgTAKE ONE TABLET BY MOUTH TWICE A DAY; Duration: 30Not-TakingPantoprazole Sodium 40 MG1 tablet Orally Once a day; Duration: 30 daysActiveOndansetron 4 MG1 tablet on the tongue and allow to dissolve Orally Once a dayActiveSildenafil Citrate 25 MG1 tablet as needed Orally daily4ActivePotassium Chloride ER 10 MEQTAKE ONE TABLET BY MOUTH TWICE A DAY WITH FOOD; Duration: 30ActiveSimvastatin 20 mgTAKE ONE TABLET BY MOUTH DAILY IN THE EVENING; Duration: 30ActiveFurosemide 20 mgTAKE ONE TABLET BY MOUTH ONCE DAILY FOR 30 DAYS; Duration: 30ActiveMeclizine HCl 12.5 MG1 tablet as needed Orally prn every 12 hrsPRNActiveGabapentin 600 mgTake 1 tablet orally once daily; Duration: 30 daysActiveMulti For Him 50+ -as directed Orally ActiveModafinil 200 MG1 tablet in the morning Orally BIDActiveEpiPen 2-Doug 0.3 MG/0.3MLas directed Injection once5ActiveCholecalciferol 125 MCG (5000 UT)1 tablet on the tongue and allow to dissolve Orally Once a dayActiveCeleXA 40 MG1 tablet Orally Once a day; Duration: 30 days4ActiveEliquis 5 MGTAKE TWO TABLETS BY MOUTH TWICE A DAY FOR 6 DAYS, THEN 1 TAB TWICE A DAY THEREAFTER Oral; Duration:30 DaysActiveDoxazosin Mesylate 4 MG1 tablet Orally Once a day; Duration: 90 daysActiveAmantadine HCl 100 MG1 tablet Orally BID; Duration: 30 daysActiveAspirin 81 81 MG1 tablet Orally Once a dayActiveCarvedilol 25 MG1 tablet with food Orally Twice a day; Duration: 30 days5ActiveBiotin 10 MG1 tablet Orally Once a dayActiveXywav 500 MG/ML6ml Orally at ctjxmyc5206/28/2025 Active Social History Tobacco Use: Social History Observation Description Date Details (start date - stop date) Never Smoker NA - NA Tobacco Use/Smoking Question Answer Notes Patient is a nonsmoker Vital Signs Weight 268.8 lbs 06/28/2025 Height 75 in 06/28/2025 Blood pressure systolic 130 mm Hg 06/28/20 25 Blood pressure diastolic 88 mm Hg 025 BMI 33.59 kg/m2 06/28/2025 Encounters Encounter Location Date Provider Diagnosis [facility] [address] [place] [address] 06/28/2025 Kareem Mendez Type 2 diabetes crow itus with foot ulcer E11.621 and Hypertension I10 Assessments Encounter Date Diagnosis (ICD Code) Assessment Notes Treatment Notes Treatment Clinical Notes Section Notes 06/28/2025 Type 2 diabetes mellitus with fo ot ulcer (ICD-10 - E11.621) 06/28/2025Hypertension (ICD-10 - I10)disucssed restarting whole doxazosin since bp up sl Plan Of Treatment Treatment Notes Assessment Notes Hypertension disucssed restarting whole doxazosin since bp up sl Next Appt Details Provider Name:Kareem Mendez, 10:45:00 AM, [address] [facility], [place], [address], Progress Notes * Alden WADE TDOB: 0 (54 yo M)Acc No.[id number]:06/28/2025 Progress Note Patient: Alden VAZQUEZ :?Caden Mendez ([facility]), MDDOB:1970???Age: 54 Y???Sex:MaleDate:06/28/2025Phone:[phone]:[id number], [place], [id number] In:09:43 AM ESTCheck Out:10:38 AM EST Subjective: * Chief Complaints: * [facility] discharge 06-21-25- Left Great Toe Amputation- Dr Vallejo * HPI: ???General:? Left great toe - amputation no fever - no chills - stl jesus whee[khadijah - Seeing Dr vallejo -? on AVB? currently HTN - stabel - DBP up sl. * ROS: ???EENT:?hearing changes?denies.?visual changes?denies. non-healing mouth sores?denies.?swollen glands or neck lumps?denies.?hoarseness?denies.?sore throat?denies.?difficulty swallowing?denies.?nose bleeds?denies.?nasal congestion?denies.?ear ache?denies.?ear discharge denies.?ringing in ears?denies.?light sensitivity?denies.?eye pain?denies.?blurring?denies.?eye irritation?denies.?double vision?denies. vision loss?denies.?General/Constitutional:?Sweats:?Denies.?Fatigue?denies.?Sleep proble ms?denies.?Anorexia?denies.?Malaise?denies.?Weight loss?denies. Fatigue or Weakness?denies.?Fever or Chills?denies.?Cardiovascular:?Shortness of Breath w/lying flat?denies.?Lightheadedne ss/dizziness?denies.?Chest tightness/ heavy pressure?denies.?Swelling of legs, a nkles, or feet?denies.?Waking up with shortness of breath?denies.?Chest pain&#16 0;denies.?Palpitations?denies.?Weight gain?denies.?Respiratory:?Chronic or frequent cough?denies.?Coughing up blood&#1 60;denies.?Difficulty breathing?denies.?Productive cough?denies.?Snoring&#1 60;denies.?Shortness of breath that awakens from sleep (PND)?denies.?Chest pain? denies.?Sputum production?denies.?Wheezing?denies.?Musculoskeletal:?Joint pain?denies.?Joint Fluid?denies.?Backpain?denies.?Knee pain?denies.?Neck pain?denies.?Joint Stiffness?denies.?Muscle cramps?denies.?Weakness of muscles?denies.?Arthritis?denies.?Muscle aches?denies.?Pain in shoulder(s)?denies.?Swollen joints?denies.? * Active Problem List E29.1 Decreased testostero ne level Modified On:12/06/2023W/U Status:tvqbywmniZ68.16Lumbar radiculopathy Modified On:06/02/2023/U Status:yqbulpanxW43.10Hypersomnia Modified On:10/29/2023/U Status:rwmeqkcarV27Btjxgaxr murmur Modified On:05/27/2023/U Status:tobqmrzmcB23Fxcgcuerulsdf Modified On:05/27/2023/U Status:octfulcinH14.37Degenerative disc disease at L5- S1 level Modified On:05/27/2023/U Status:inikojhyqR08.96Lumbar spondylitis Modified On:05/27/2023 Status:zuzbwwnpuJ00.9Diabetes Modified On:05/27/2023 Status:axaihgmkfI58.90Cervical disc disease Modified On:05/27/2023 Status:gevafglpdK41.00Carpal tunnel syndrome Modified On:05/27/2023 Status:hlivsvbttP45.10Lateral epicondylitis Modified On:05/27/2023 Status:mxlmhqqqjK21.29Chronic pain Modified On:06/02/2023 Status:qksoahwomR08.9GERD (gastroesophageal reflux disease) Modified On:05/27/2023 Status:wdaymhzvbM36.00Insomnia Modified On:05/27/2023 Status:wkkkpcxfrR42.9Impotence Modified On:05/27/2023 Status:pgymuyhxhN57.9Anxiety Modified On:05/27/2023 Status:zpcseafukY34.33OSA (obstructive sleep apnea) Modified On:05/27/2023 Status:kliecopgiL70.909Migraine Modified On:08/11/2023 Status:vsotcrcdnC55.90Cellulitis Modified On:08/25/2023 Status:oujzuncxiE08.11Right upper quadrant abdominal pain Modified On:10/13/2023U Status:gwngyscrlL82.9Pneumonia Modified On:11/12/2023 Status:edtxkimykL43.519Foot ulcer, right Modified On:12/01/2023U Status:ropeiurqyT88.9Bursitis Modified On:12/20/2023U Status:azwlbnlvvI88.512Chronic ulcer of right foot with fat layer exposed Modified On:12/28/2023U Status:rduyznutjW35.621Type 2 diabetes mellitus with foot ulcer Modified On:03/06/2024U Status:egfiyvclmW89.402ALeft fibular fracture Modified On:03/15/2024U Status:gbqwdqwbdJ15.672Charcot's joint, left ankle and foot Modified On:04/04/2024U Status:cgnmjzllaL07.42Controlled type 2 diabetes mellitus with diabetic polyneuropathy, 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 Modified On:04/10/2024U Status:ejnvbgxkrW87.572Left ankle pain Modified On:04/20/2024 Status:ftfgzxczoL32.9Diabetes mellitus Modified On:04/24/2024 Status:sroepicubG39.9Depression Modified On:07/06/2024 Status:uunawbttgW57.522Chronic ulcer of great toe of left foot with fat layer exposed Modified On:09/18/2024U Status:gcnmtsqjdO96.22Acute and chronic respiratory failure with hypercapnia Modified On:09/22/2024 Status:kavidzwllJ79.33Obstructive sleep apnea (adult) (pediatric) Modified On:09/22/2024 Status:uyyonygpdJ14.00Insomnia, unspecified Modified On:09/22/2024 Status:qgettofrcO78.38Body mass index [BMI] 38.0-38.9, adult Modified On:09/22/2024 Status:agjgmauyjO42Zmecnbovtvxd Modified On:10/16/2024 Status:vfitisqftK37.525Non-pressure chronic ulcer of other part of left foot with muscle involvement without evidence of necrosis Modified On:10/30/2024U Status:kgsssrwcvK40.90Otitis externa Modified On:12/13/2024 Status:mnxndlizzC99.92Otitis externa of left ear Modified On:12/14/2024 Status:confirmed * Medical History: * Surgical History: V ASECTOMY UVULOPLASTY TONSILLECTOMY RIGHT SHOULDER CERVICAL DECOMPRESSION REVISED C6-C7 OSTEOTOMY HEAD OF FIRST PHALANX ORIF left ankle Lateral Malleolus Fx, Closed Reduction Post Malleolus Fx 03/15/24Left Great Toe Amputation 06/2025 * Hospitalization/Major Diagno stic Procedure: s ee above cervical surgery 2019cervical 2018Great Toe Amputation 06/2025 * Family History: F ather: alive 85 yrs, diagnosed with Diabetes, Heart Disease, Arthritis. M other: alive 78 yrs. B hanyer(s): alive. S ister(s): alive. S on(s): alive. D aughter(s): alive. 4 brother(s) , 2 sister(s) - healthy. 1 son(s) , 1 daughter(s) - healthy. . * Social History: ???Tobacco Use:?Tobacco Use/Smoking?Patient is a?nonsmoker * Medications: T akingAmantadine HCl 100 MG Tablet 1 tablet Orally BID Aspirin 81(Aspirin) 81 MG Tablet Delayed Release 1 tablet Orally Once a day Biotin 10 MG Tablet 1 tablet Orally Once a day Carvedilol 25 MG Tablet 1 tablet with food Orally Twice a day CeleXA(Citalopram Hydrobromide) 40 MG Tablet 1 tablet Orally Once a day Cholecalciferol 125 MCG (5000 UT) Tablet Disintegrating 1 tablet on the tongue and allow to dissolve Orally Once a day Doxazosin Mesylate 4 MG Tablet 1 tablet Orally Once a day Eliquis(Apixaban) 5 MG Tablet TAKE TWO TABLETS BY MOUTH TWICE A DAY FOR 6 DAYS, THEN 1 TAB TWICE A DAY THEREAFTER Oral EpiPen 2-Doug(EPINEPHrine) 0.3 MG/0.3ML Solution Auto-injector as directed Injection once Furosemide 20 mg Tablet TAKE ONE TABLET BY MOUTH ONCE DAILY FOR 30 DAYS Gabapentin 600 mg Tablet Take 1 tablet orally once daily Meclizine HCl 12.5 MG Tablet 1 tablet as needed Orally prn every 12 hrs , Notes to Pharmacist: PRNModafinil 200 MG Tablet 1 tablet in the [...] TWICE A DAY WITH FOOD Sildenafil Citrate 25 MG Tablet 1 tablet as needed Orally daily Simvastatin 20 mg Tablet TAKE ONE TABLET BY MOUTH DAILY IN THE EVENING SUMAtriptan Succinate 100 MG Tablet 1 tablet at least 2 hours between doses as needed Orally Twice a day , Notes to Pharmacist: PRNTestosterone Cypionate 200 MG/ML Solution Inject 0.75 mL Intramuscular WEEKLY Xywav(Ca, Mg, K, and Na Oxybates) 500 MG/ML Solution 6ml Orally at bedtime Taking Amantadine HCl 100 MG Tablet 1 tablet Orally BID Taking Aspirin 81(Aspirin) 81 MG Tablet Delayed Release 1 tablet Orally Once a day Taking Biotin 10 MG Tablet 1 tablet Orally Once a day Taking Carvedilol 25 MG Tablet 1 tablet with food Orally Twice a day Taking CeleXA(Citalopram Hydrobromide) 40 MG Tablet 1 tablet Orally Once a day Taking Cholecalciferol 125 MCG (5000 UT) Tablet Disintegrating 1 tablet on the tongue and allow to dissolve Orally Once a day Taking Doxazosin Mesylate 4 MG Tablet 1 tablet Orally Once a day Taking Eliquis(Apixaban) 5 MG Tablet TAKE TWO TABLETS BY MOUTH TWICE A DAY FOR 6 DAYS, THEN 1 TAB TWICE A DAY THEREAFTER Oral Taking EpiPen 2-Doug(EPINEPHrine) 0.3 MG/0.3ML Solution Auto-injector as directed Injection once Taking Furosemide 20 mg Tablet TAKE ONE TABLET BY MOUTH ONCE DAILY FOR 30 DAYS Taking Gabapentin 600 mg Tablet Take 1 tablet orally once daily Taking Meclizine HCl 12.5 MG Tablet 1 tablet as needed Orally prn every 12 hrs , Notes to Pharmacist: PRNTaking Modafinil 200 MG Tablet 1 tablet in the morning Orally BID Taking Multi For Him 50+(Multiple Vitamins- Minerals) - Tablet as directed Orally Taking Ondansetron 4 MG Tablet Disintegrating 1 tablet on the tongue and allow to dissolve Orally Once a day Taking Pantoprazole Sodium 40 MG Tablet Delayed Release 1 tablet Orally Once a day Taking Potassium Chloride ER 10 MEQ Tablet Extended Release TAKE ONE TABLET BY MOUTH TWICE A DAY WITH FOOD Taking Sildenafil Citrate 25 MG Tablet 1 tablet as needed Orally daily Taking Simvastatin 20 mg Tablet TAKE ONE TABLET BY MOUTH DAILY IN THE EVENING Taking SUMAtriptan Succinate 100 MG Tablet 1 tablet at least 2 hours between doses as needed Orally Twice a day , Notes to Pharmacist: PRNTaking Testosterone Cypionate 200 MG/ML Solution Inject 0.75 mL Intramuscular WEEKLY Taking Xywav(Ca, Mg, K, and Na Oxybates) 500 MG/ML Solution 6ml Orally at bedtime Not-Taking/PRNGlycopyrrolate 1 mg Tablet TAKE ONE TABLET BY MOUTH TWICE A DAY Not-Taking/PRN Glycopyrrolate 1 mg Tablet TAKE ONE TABLET BY MOUTH TWICE A DAY DiscontinuedBD Luer-Yaquelin Syringe(Syringe/Needle (Disp)) 23G X 1 3 ML Miscellaneous USE DIRECTED to INJECT testosterone WEEKLY Glycopyrrolate 1 MG Tablet TAKE ONE TABLET BY MOUTH TWICE A DAY Oral Viagra 100 MG Tablet 1 tablet as needed Orally Once a day Medication List reviewed and reconciled with the patientDiscontinued BD Luer-Yaquelin Syringe(Syringe/Needle (Disp)) 23G X 1 3 ML Miscellaneous USE DIRECTED to INJECT testosterone WEEKLY Discontinued Glycopyrrolate 1 MG Tablet TAKE ONE TABLET BY MOUTH TWICE A DAY Oral Discontinued Viagra 100 MG Tablet 1 tablet as needed Orally Once a day Medication List reviewed and reconciled with the patient * Allergies: F entanyl: hives - Allergy - Criticality HighHydrocodone: hives - Allergy - Criticality Highno[Allergies Verified] Objective: * Vitals: W t:268.8lbs, Ht: 75 in, BP:130/88mm Hg, BMI:33.59Index, Ht-cm: 190.5 cm, Wt-k.93 kg. * Examination: ???Physical Exam: ?GENERAL:?well developed, well nourished, in no acute distress.?HEAD:?normocephalic/atraumatic.?EYES:?pupils equal, round and reactive to light, conjunctivae and sclerae normal.?EARS:?no deformity or lesion of external ear, canals and TM appear normal bilaterally, TM's intact, not inflamed with normal light reflex, hearing grossly normal to conversational speech.?NOSE:?no deformity, discharge, inflammation, or lesions. ?MOUTH:?mucous membranes moist, normal oropharynx and posterior pharynx without lesions or exudates, tongue normal, dentition normal.?NECK:?neck supple, no masses or palpable cervical nodes, trachea midline, thyroid without nodules, masses, tenderness, or enlargement.?CHEST:?no chest wall deformity, no chest wall tenderness. ?LUNGS:?normal respiratory effort and clear to auscultation, no wheezes, rales, or rhonchi, good air exchange.?CARDIO:?regular rate and rhythm, normal S1 and S2, nor murmur, rub, or gallop.?PULSES:?normal capillary refill.?ABDOMEN:?soft, non-distended, non-tender, no masses.?MUSCULOSKELETAL:?no deformity or scoliosis noted, normal range of motion, joints normal, no erythema, edema, effusion, or ecchymosis.?EXTREMITY:?no clubbing, cyanosis, edema, or deformity withnormal ROM in both upper and lower bilateral extremities.?NEUROLOGIC:?grossly normal.?SKIN:?no rashes, ulcerations, or suspicious lesions.?LYMPH NODES:?no cervical adenopathy, nodes normal.?MENTAL STATUS:?alert and oriented x3, normal mood and affect.? Assessment: * Assessment: 1.?Type 2 diabetes mellitus with foot ulcer - E11.621 (Primary)???2.?Hypert ension - I10??? Plan: * Treatment: Notes: disucssed restarting whole doxazosin since bp up sl?? * Procedure Codes: * Preventive Medicine: ??Screenings/Counseling:?BMI ACTION PLAN?Above Normal BMI Follow-up?Dietary management education, guidance, and counseling * * Sign off status: CompletedVisit Status:?CHK (Check Out) true * Provider: Sarah Mendez ([facility])MD Date: 1 Generated for Printing/Faxing/eTransmitting on:?07/10/2025 11:27 AM EDT History and Physical Notes * HPI (History of Present Illness) CategorySub-CategoryDetailNotesCategory NotesGeneral Left great toe - amputation no fever - no chills - stl jesus whee[khadijah - Seeing Dr vallejo - on AVB currently HTN - stabel - DBP up sl Examination CategorySub-CategoryDetailNotesCategory NotesPhysical ExamGENERAL:well developed, well nourished, in no acute distressHEAD:normocephalic/atraumatic EYES:pupils equal, round and reactive to light, conjunctivae and sclerae normal EARS:no deformity or lesion of external ear, canals and TM appear normal bilaterally, TM's intact, not inflamed with normal light reflex, hearing grossly normal to conversational speechNOSE:no deformity, discharge, inflammation, or lesionsMOUTH:mucous membranes moist, normal oropharynx and posterior pharynx without lesions or exudates, tonguenormal, dentition normalNECK:neck supple, no masses or palpable cervical nodes, trachea midline, thyroid without nodules, masses, tenderness, or enlargementCHEST:no chest wall deformity, no chest wall tendernessLUNGS:normal respiratory effort and clear to auscultation, no wheezes, rales, or rhonchi, good air exchangeCARDIO:regular rate and rhythm, normal S1 and S2, nor murmur, rub, or gallopPULSES:normal capillary refillABDOMEN:soft, non-distended, non-tender, no massesRECTAL:MUSCULOSKELETAL:no deformity or scoliosis noted, normal range of motion, joints normal, no erythema, edema, effusion, or ecchymosisEXTREMITY:no clubbing, cyanosis, edema, or deformity with normal ROM in both upper and lower bilateral extremitiesNEUROLOGIC:grossly normalSKIN:no rashes, ulcerations, or suspicious lesionsLYMPH NODES:no cervical adenopathy, nodes normalMENTAL STATUS:alert and oriented x3, normal mood and affect
--- OUTSIDE RECORDS SUMMARY | 2025-07-10 11:28 | XMS_ITS | Patient Health Record ---
Author Organization [facility] [place] Address [address] [place] [address] Care Team Providers Care Brick Catcher Name Role Phone Kareem Mendez Primary Care Provider Clarisa Vallejo [phone] Allergies Allergen (clinical drug ingredient) Drug/Non Drug Allergy documented on EMR Reaction Allergy Type Onset Date Status hydrocodone Hydrocodone hives Drug Allergy ActivefentanylFentanylhivesDrug AllergyActive Results Component Value Reference Range Notes CBC AUTO DIFF Reviewed date:08/05/2024 10:32:26 AM Interpretation: Performing Lab: Notes/Report: [facility] , White Blood Count 9.3 4.0-11.0 10 3/uL Red Blood Count5.894.70-6.10 10 6/yJFowdviymkc31.814.0-18.0 g/aNXcprdlotsz52.4 42.0-54.0 %Mean Corpuscular Qvnzzr63.680.0-94.0 fLMean Corpuscular Hemoglobin 26.825.9-34.0 pgMean Corpuscular HGB Conc31.329.9-35.2 g/dLRed Cell Distribution Width15.911.0-15.0 %Platelet Xjbfl683005-934 10 3/uLMean Platelet Volume9.79.5- 13.5 fLNeutrophils Percent Auto77.143.0-75.0 %Lymphocytes Percent Auto10.820.5- 60.0 %Monocytes Percent Auto8.91.7-12.0 %Eosinophils Percent Auto1.40.9-7.0 % Basophils Percent Auto0.90.2-2.0 %Immature Granulocytes Pct Auto0.90.0-0.5 % Neutrophils Absolute Auto7.21.4-6.5 10 3/uLLymphocytes Absolute Auto1.01.2-3.8 10 3/uLMonocytes Absolute Auto0.80.3-0.8 10 3/uLEosinophils Absolute Auto0.10.0- 0.7 10 3/uLBasophils Absolute Auto0.10.0-0.1 10 3/uLImmature Granulocytes Abs Auto0.080.00-0.03 10 3/uLPerforming Lab:see noteML - [facility] LBCRP Reviewed date:08/29/2024 12:27:30 PM Interpretation: Performing Lab: Notes/Report: [facility] ,C Reactive Protein0.54<=0.50 mg/dLPerforming Lab:see noteML - [facility] LBPROF CHEM 8 (BAS METB) Reviewed date:08/29/2024 12:27:30 PM Interpretation: Performing Lab: Notes/Report: [facility] ,Jtfbup213616-386 mmol/LPotassium4.43.5-5.1 mmol/NHamgobds03712-608 mmol/LCarbon Dlzjxmv84.221.0-32.0 mmol/LAnion Gap9.6Mmdxmvo00184-508 mg/dLBlood Urea Nitrogen 13.07.0-18.0 mg/dLCreatinine1.120.70-1.30 mg/dLEstimated GFR ( Elizabeth>60 >=60 mL/min/1.73m 2Estimated GFR (Non- Gwen>60>=60 mL/min/1.73m 2BUN Creatinine Ratio11.0Bpszhkw4.28.5-10.1 mg/dLPerforming Lab:see noteML - [facility] LBXR foot LT min 3V Reviewed date:08/29/2024 12:27:30 PM Interpretation: Performing Lab: Notes/Report: Source Facility: [facility]-[address] [place] [address] [place] [address] XRay Report Signed Patient: MATTY GARCES MR#: [id number] : 1970 Acct:[id number] Age/Sex: 53 / M ADM Date: 08/22/24 Loc: Attending Dr: Brayden Gooden Ordering Physician: Brayden Gooden Date of Service: 08/22/24 Procedure(s): XR foot LT min 3V Accession Number(s): [id number] cc: Venus Mendez M.D.; Brayden Gooden [place] [address] Patient Name: MATTY GARCES MRN: [facility]:[id number] date: 1970 Sex: M Assigned Patient Location: Current Patient Location: Accession/Order Number: [id number] Exam Date: 08/22/2024 13:51 Report Date: 08/23/2024 08:00 At the request of: BRAYDEN GOODEN Procedure: XR foot LT min 3V [...] Alvina Caicedo M.D. Signed By: 08/23/24801 DD/ 08 TD/TT: Roofing Laborer:US venous doppler LE BI Reviewed date:09/19/2024 07:12:29 PM Interpretation: Performing Lab: Notes/Report: Source Facility: [place] [address] [place] [address] Ultrasound Report Signed Patient: MATTY GARCES MR#: [id number] : 1970 Acct:[id number] Age/Sex: 53 / M ADM Date: 08/30/24 Loc: Attending Dr: Brayden Gooden Ordering Physician: Brayden Gooden Date of Service: 08/30/24 Procedure(s): US venous doppler LE LT Accession Number(s): [id number] cc: Venus Mendez M.D.; Brayden Gooden [place] [id number] Patient Name: MATTY GARCES MRN: [facility]:[id number] date: 1970 Sex: M Assigned Patient Location: Current Patient Location: Accession/Order Number: [id number] Exam Date: 08/30/2024 15:36 Report Date: 08/30/2024 16:31 At the request of: BRAYDEN GOODEN Procedure: US venous doppler LE LT [...] the left lower extremity. Electronically authenticated by: ALTAF DAVIS Date: 08/30/2024 16:31 Dictated By: Altaf Davis M.D. Signed By: 08/30/24 1633 DD/ 1631 TD/TT: Roofing Laborer:Blood Culture 1 Reviewed date:09/25/2024 08:20:56 PM Interpretation: Performing Lab: Notes/Report: [facility] ,Blood Culture 1See Below For Report Blood Culture 1 NG5D NO GROWTH AT 5 DAYS. Performing Lab:see noteML - [facility] LBBlood Culture 2 Reviewed date:09/25/2024 08:20:56 PM Interpretation: Performing Lab: Notes/Report: [facility] ,Blood Culture 2See Below For Report Blood Culture 2 NG5D NO GROWTH AT 5 DAYS. Performing Lab:see noteML - [facility] LBUS venous doppler LE BI Reviewed date:09/20/2024 07:18:09 PM Interpretation: Performing Lab: Notes/Report: Source Facility: [place] [address] [place] [address] Ultrasound Report Signed Patient: MATTY GARCES MR#: [id number] : 1970 Acct:[id number] Age/Sex: 53 / M ADM Date: 09/19/24 Loc: ER Attending Dr: Ordering Physician: Veronique Garrett Date of Service: 09/19/24 Procedure(s): US venous doppler LE LT Accession Number(s): [id number] cc: Venus Mendez M.D.; Veronique Garrett [place] [address] Patient Name: MATTY GARCES MRN: [id number]:[id number] date: 1970 Sex: M Assigned Patient Location: ER Current Patient Location: ER Accession/Order Number: [id number] Exam Date: 09/19/2024 19:20 Report Date: 09/19/2024 20:47 At the request of: VERONIQUE GARRETT Procedure: US venous doppler LE LT [...] M.D. Signed By: 09/19/242049 DD/ 46 TD/TT: Roofing Laborer:BLOOD GASES BTY Reviewed date:09/20/2024 07:18:09 PM Interpretation: Performing Lab: Notes/Report: [facility] ,pH ABG7.3537.350-7.450ABG FBB561.035.0-45.0 mmHgRESULTS CALLED TO ALEXIS KAMANN,RNPO2 ABG91.680.0-100.0 mmHgHCO3 ABG34.422.0-26.0 mmol/LBase Excess ABG 8.9-2.0-2.0 mmol/LOxygen Saturation ABG97.9Allen TestPOSITIVEPOSITIVEO2 Mode BIPAPFractionated Inspired Wmemsm45Kilpkmxs SiteLRBIPAP Qnknkmqn17/30Dccy72 Performing Lab:see noteML - [facility] LBBNP Reviewed date:09/20/2024 07:18:09 PM Interpretation: Performing Lab: Notes/Report: [facility] ,NT Pro B Type Natriuretic Eyfo505.0<=900.0 pg/mLPerforming Lab:see note - [facility] LBTroponin I High Sensitivity Reviewed date:09/20/2024 07:18:09 PM Interpretation: Performing Lab: Notes/Report: [facility] ,Troponin I High Sensitivity6.24.0-76.1 pg/mL CUT-OFF POINTS HAVE BEEN ESTABLISHED BASED ON THE FOURTH UNIVERSAL DEFINITION OF MYOCARDIAL INFARCTION. THE UPPER REFERENCE LIMIT (URL) OF TROPONIN, DEFINED THE 99TH PERCENTILE OF cTnI DISTRIBUTION IN A REFERENCE POPULATION, HAS BEEN CONFIRMED THE DECISION THRESHOLD FOR NM DIAGNOSIS. 99TH PERCENTILE = 76.2 PG/ML NOTE: HIGH-SENSITIVITY TROPONIN ASSAY IS NOT INTENDED TO BE USED IN ISOLATION BUT SHOULD BE INTERPRETED IN CONJUNCTION WITH OTHER DIAGNOSTIC AND CLINICAL INFORMATION. Performing Lab:see note - [facility] LBECG 12 lead Reviewed date:09/21/2024 09:07:03 PM Interpretation: Performing Lab: Notes/Report: Source Facility: [place] [address] Electrocardiograph Report Signed Patient: MATTY GARCES MR#: [id number] : 1970 Acct:[id number] Age/Sex: 53 / M ADM Date: 09/19/24 Loc: ICU 270-[address]: Venus Mendez M.D. Ordering Physician: Venus Mendez M.D. Date of Service: 09/20/24 Procedure(s): ECG 12 lead Accession Number(s): [id number] cc: [facility] Test Date: 2024-09-20 Pat Name: MATTY GARCES Department: Room: Formerly named [facility] Gender: Male Cleaning Team Member: : 1970 Requested By: VENUS MENDEZ Order Number: [id number] Reading MD: KENNETH ROWE Measurements Intervals Antler Rate: 67 P: 54 IN: 186 QRS: 62 QRSD: 94 T: 31 QT: 394 QTc: 409 Interpretive Statements [address]/T wave changes Electronically Signed On 09-21-2024 20:51:20 EST by KENNETH ROWE Dictated By: Kenneth Rowe D.O. Signed By: 09/21/242050 DD/ 130 TD/TT: Roofing Laborer:CT soft tissue neck w con Reviewed date:09/20/2024 07:18:09 PM Interpretation: Performing Lab: Notes/Report: Source Facility: [place] [address] CT Scan Report Signed Patient: MATTY GARCES MR#: [id number] : 1970 Acct:[id number] Age/Sex: 53 / M ADM Date: 09/19/24 Loc: ICU Formerly named [facility] Attending Dr: Venus Mendez M.D. Ordering Physician: Venus Mendez M.D. Date of Service: 09/20/24 Procedure(s): CT soft tissue neck w con Accession Number(s): [id number] cc: Venus Mendez M.D. [place] [id number] Patient Name: MATTY GARCES MRN: [id number] date: 1970 Sex: M Assigned Patient Location: ICU Current Patient Location: ICU Accession/Order Number: [id number] Exam Date: 09/20/2024 13:15 Report Date: 09/20/2024 [...] clear. Masseters are clear. Skull base intact. Sanitary Engineering Teacher spaces are normal. The parotid glands are [...] Signed By: 09/20/24 1458 DD/ 1456 TD/TT: Roofing Laborer:Troponin I High Sensitivity Reviewed date:09/20/2024 07:18:09 PM Interpretation: Performing Lab: Notes/Report: [facility] ,Troponin I High Sensitivity7.24.0-76.1 pg/mL CUT-OFF POINTS HAVE BEEN ESTABLISHED BASED ON THE FOURTH UNIVERSAL DEFINITION OF MYOCARDIAL INFARCTION. THE UPPER REFERENCE LIMIT (URL) OF TROPONIN, DEFINED THE 99TH PERCENTILE OF cTnI DISTRIBUTION IN A REFERENCE POPULATION, HAS BEEN CONFIRMED THE DECISION THRESHOLD FOR NM DIAGNOSIS. 99TH PERCENTILE = 76.2 PG/ML NOTE: HIGH-SENSITIVITY TROPONIN ASSAY IS NOT INTENDED TO BE USED IN ISOLATION BUT SHOULD BE INTERPRETED IN CONJUNCTION WITH OTHER DIAGNOSTIC AND CLINICAL INFORMATION. Performing Lab:see noteML - [facility] LBCBC AUTO DIFF Reviewed date:10/05/2024 06:15:03 PM Interpretation: Performing Lab: Notes/Report: [facility] ,White Blood Count9.14.0-11.0 10 3/uLRed Blood Count4.634.70-6.10 10 6/uL Xacutzuvgb86.514.0-18.0 g/yCGsxtpltlfa95.042.0-54.0 %Mean Corpuscular Ggmbor60.4 80.0-94.0 fLMean Corpuscular Dnnmahikwu88.025.9-34.0 pgMean Corpuscular HGB Conc 31.329.9-35.2 g/dLRed Cell Distribution Width15.311.0-15.0 %Platelet Lrblm846 150-450 10 3/uLMean Platelet Volume9.29.5-13.5 fLNeutrophils Percent Auto77.2 43.0-75.0 %Lymphocytes Percent Auto9.820.5-60.0 %Monocytes Percent Auto7.71.7- 12.0 %Eosinophils Percent Auto2.20.9-7.0 %Basophils Percent Auto0.80.2-2.0 % Immature Granulocytes Pct Auto2.30.0-0.5 %Neutrophils Absolute Auto7.01.4-6.5 10 3/uLLymphocytes Absolute Auto0.91.2-3.8 10 3/uLMonocytes Absolute Auto0.70.3-0.8 10 3/uLEosinophils Absolute Auto0.20.0-0.7 10 3/uLBasophils Absolute Auto0.10.0- 0.1 10 3/uLImmature Granulocytes Abs Auto0.210.00-0.03 10 3/uLPerforming Lab:see noteML - [facility] LBPROF 14(COMP METB) Reviewed date:10/05/2024 06:15:03 PM Interpretation: Performing Lab: Notes/Report: [facility] ,Dwvoum993400-010 mmol/LPotassium3.73.5-5.1 mmol/LBjlktccm3962-201 mmol/LCarbon Aoiqims24.821.0-32.0 mmol/LAnion Gap5.7Zvoswzt6622-640 mg/dLBlood Urea Nitrogen 9.07.0-18.0 mg/dLCreatinine1.080.70-1.30 mg/dLEstimated GFR ( Elizabeth>60 >=60 mL/min/1.73m 2Estimated GFR (Non- Gwen>60>=60 mL/min/1.73m 2BUN Creatinine Ratio8.7Esfnvou9.68.5-10.1 mg/dLBilirubin Total0.70.2-1.0 mg/dL Aspartate Amino Efvkyvtvqxn7015-95 U/LAlanine Eurxblkhdbwemxjq1464-89 U/L Alkaline Hoplglhffbt19726-229 U/LTotal Protein7.66.4-8.2 g/dLAlbumin Level3.2 3.4-5.0 g/dLGlobulin4.4Albumin Globulin Ratio0.7Performing Lab:see noteML - [facility] LBBNP Reviewed date:03/05/2025 09:30:34 PM Interpretation: Performing Lab: Notes/Report: [facility] ,NT Pro B Type Natriuretic Hvko676.0<=900.0 pg/mLPerforming Lab:see note - [facility] LBCBC AUTO DIFF Reviewed date:03/05/2025 09:30:34 PM Interpretation: Performing Lab: Notes/Report: [facility] ,White Blood Count6.74.0-11.0 10 3/uLRed Blood Count4.814.70-6.10 10 6/uL Mcmedldbsb08.014.0-18.0 g/iWVccojluclz76.942.0-54.0 %Mean Corpuscular Fowydd64.1 80.0-94.0 fLMean Corpuscular Ftsuvnesba21.125.9-34.0 pgMean Corpuscular HGB Conc 33.429.9-35.2 g/dLRed Cell Distribution Width14.511.0-15.0 %Platelet Zytnn021 150-450 10 3/uLMean Platelet Volume9.69.5-13.5 fLNeutrophils Percent Auto73.6 43.0-75.0 %Lymphocytes Percent Auto13.420.5-60.0 %Monocytes Percent Auto10.51.7- 12.0 %Eosinophils Percent Auto1.10.9-7.0 %Basophils Percent Auto0.60.2-2.0 % Immature Granulocytes Pct Auto0.80.0-0.5 %Neutrophils Absolute Auto4.91.4-6.5 10 3/uLLymphocytes Absolute Auto0.91.2-3.8 10 3/uLMonocytes Absolute Auto0.70.3-0.8 10 3/uLEosinophils Absolute Auto0.10.0-0.7 10 3/uLBasophils Absolute Auto0.00.0- 0.1 10 3/uLImmature Granulocytes Abs Auto0.050.00-0.03 10 3/uLPerforming Lab:see noteML - [facility] LBLACTATE or LACTIC ACID Reviewed date:03/05/2025 09:30:34 PM Interpretation: Performing Lab: Notes/Report: [facility] ,Lactate/Lactic Acid1.20.4-2.0 mmol/LPerforming Lab:see note - [facility] LBPROF 14(COMP METB) Reviewed date:03/05/2025 09:30:34 PM Interpretation: Performing Lab: Notes/Report: [facility] ,Nbufva337004-470 mmol/LPotassium4.13.5-5.1 mmol/VIvcqltto60383-140 mmol/LCarbon [place]40.421.0-32.0 mmol/LAnion Gap10.5Gbysieg15422-057 mg/dLBlood Urea Vbcptexd63.07.0-18.0 mg/dLCreatinine0.880.70-1.30 mg/dLEstimated GFR ( Elizabeth>60>=60 mL/min/1.73m 2Estimated GFR (Non- Gwen>60>=60 mL/min/1.73m 2BUN Creatinine Ratio14.1Rqemrhs05.08.5-10.1 mg/dLBilirubin Total0.60.2-1.0 mg/dLAspartate Amino Glprkrbkati2867-69 U/LAlanine Bmkghqmkawlhqriw4126-11 U/L Alkaline Iuajmqbocyx33386-999 U/LTotal Protein8.16.4-8.2 g/dLAlbumin Level3.5 3.4-5.0 g/dLGlobulin4.6Albumin Globulin Ratio0.8Performing Lab:see note - [facility] LBPTT Reviewed date:03/05/2025 09:30:34 PM Interpretation: Performing Lab: Notes/Report: [facility] ,Partial Thromboplastin Time35.322.3-36.2 secPerforming Lab:see noteML - [facility] LBBlood Culture 1 Reviewed date:03/11/2025 03:17:10 PM Interpretation: Performing Lab: Notes/Report: [facility] ,Blood Culture 1See Below For Report Blood Culture 1 NG5D NO GROWTH AT 5 DAYS.^NO GROWTH AT 5 DAYS. Performing Lab:see noteML - [facility] LBProthrombin Time INR Reviewed date:03/05/2025 09:30:34 PM Interpretation: Performing Lab: Notes/Report: [facility] ,Prothrombin Time12.79.0-11.6 secINR1.22 DESIRED INR: 2.0-3.0 CONDITIONS NOT LISTED BELOW 2.5-3.5 FOR PROSTHETIC HEART VALVE REPLACEMENT 2.5-3.5 RECURRENT THROMBOSIS Performing Lab:see noteML - [facility] LBTroponin I High Sensitivity Reviewed date:03/05/2025 09:30:34 PM Interpretation: Performing Lab: Notes/Report: [facility] ,Troponin I High Sensitivity7.34.0-76.1 pg/mL CUT-OFF POINTS HAVE BEEN ESTABLISHED BASED ON THE FOURTH UNIVERSAL DEFINITION OF MYOCARDIAL INFARCTION. THE UPPER REFERENCE LIMIT (URL) OF TROPONIN, DEFINED THE 99TH PERCENTILE OF cTnI DISTRIBUTION IN A REFERENCE POPULATION, HAS BEEN CONFIRMED THE DECISION THRESHOLD FOR NM DIAGNOSIS. 99TH PERCENTILE = 76.2 PG/ML NOTE: HIGH-SENSITIVITY TROPONIN ASSAY IS NOT INTENDED TO BE USED IN ISOLATION BUT SHOULD BE INTERPRETED IN CONJUNCTION WITH OTHER DIAGNOSTIC AND CLINICAL INFORMATION. Performing Lab:see noteML - [facility] LBAerobe ID + Suscept Reviewed date:03/11/2025 05:04:50 PM Interpretation: Performing Lab: Notes/Report: [facility] ,Aerobe ID + SusceptSee Below For Report Aerobe ID + Suscept O:MICLUT Isolated Aerobe ID + Suscept*ABNORMAL* Aerobe ID + Suscept O:MICLUT Isolated Aerobe ID + SusceptGram positive cocci Aerobe ID + Suscept O:MICLUT Isolated Aerobe ID + Suscept*ABNORMAL* Aerobe ID + Suscept O:MICLUT Isolated Aerobe ID + SusceptReceived aerobic bottle only. Aerobe ID + Suscept O:MICLUT Isolated Aerobe ID + SusceptIdentification and sensitivities to follow. Aerobe ID + Suscept O:MICLUT Isolated Aerobe ID + SusceptOrganism: Micrococcus luteus : Aerobe ID + Suscept O:MICLUT Isolated Aerobe ID + Suscept*ABNORMAL* Aerobe ID + Suscept O:MICLUT Isolated Aerobe ID + SusceptReceived aerobic bottle only. Aerobe ID + Suscept O:MICLUT Isolated Aerobe ID + SusceptSusceptibility not normally performed on this organism. Aerobe ID + Suscept O:MICLUT Isolated Aerobe ID + SusceptMicrococcus luteus Aerobe ID + Suscept O:MICLUT Isolated Aerobe ID + SusceptSee Below For Report Aerobe ID + Suscept O:MICLUT Isolated Aerobe ID + SusceptPerformed at: - [facility] [place] Aerobe ID + Suscept O:MICLUT Isolated Aerobe ID + [id number] [place], [place] [id number] Aerobe ID + Suscept O:MICLUT Isolated Aerobe ID + SusceptLab Director: Arthur Snyder PhD, Phone: [phone] Aerobe ID + Suscept O:MICLUT Isolated Performing Lab:see note LC - [facility] LB SEE REPORT - Spinning Lathe Operator Id information not found for OBX-specific movie producer legend ECG 12 lead Reviewed date:03/07/2025 09:35:46 PM Interpretation: Performing Lab: Notes/Report: Source Facility: [place] [address] [place] [address] Electrocardiograph Report Signed Patient: MATTY GARCES MR#: [id number] : 1970 Acct:[id number] Age/Sex: 54 / M ADM Date: 03/05/25 Loc: MS 221-[address]: Venus Mendez M.D. Ordering Physician: Jess Ryan Date of Service: 03/05/25 Procedure(s): ECG 12 lead Accession Number(s): [id number] cc: [facility] Test Date: 2025-03-05 Pat Name: MATTY GARCES Department: Room: - Gender: Male Cleaning Team Member: : 1970 Requested By: 0923 Order Number: [id number] Reading MD: RAMIRO WALLS M.D. Measurements Intervals Antler Rate: 76 P: 60 IN: 178 QRS: 69 QRSD: 100 T: 46 QT: 406 QTc: 437 Interpretive Statements 1100 Sinus rhythm 0102 ARTIFACT PRESENT 9110 normal ECG Compared to ECG 09/23/2024 05:51:07 No significant changes Electronically Signed On 03-06-2025 9:29:34 EDT by RAMIRO WALLS M.D. Dictated By: RAMIRO WALLS Signed By: 03/06/25928 DD/ 06 TD/TT: Roofing Laborer:PROF WRIGHT 8 ([facility]) Reviewed date:03/07/2025 09:35:46 PM Interpretation: Performing Lab: Notes/Report: [facility] ,Azffsd430624-401 mmol/LPotassium4.43.5-5.1 mmol/IQfxlmsac63356-206 mmol/LCarbon Ozjziqw67.021.0-32.0 mmol/LAnion Gap10.4Aomegai37468-493 mg/dLBlood Urea Bzhtosoe40.07.0-18.0 mg/dLCreatinine0.870.70-1.30 mg/dLEstimated GFR ( Elizabeth>60>=60 mL/min/1.73m 2Estimated GFR (Non- Gwen>60>=60 mL/min/1.73m 2BUN Creatinine Ratio16.3Twsqbak9.28.5-10.1 mg/dLPerforming Lab:see noteML - [facility] LBCBC no Diff (Hemogram) Reviewed date:03/07/2025 09:35:46 PM Interpretation: Performing Lab: Notes/Report: [facility] ,White Blood Count6.84.0-11.0 10 3/uLRed Blood Count4.534.70-6.10 10 6/uL Usaqvljpcb87.314.0-18.0 g/wEJqirrlqxod54.342.0-54.0 %Mean Corpuscular Tzchsp66.0 80.0-94.0 fLMean Corpuscular Enyhjszouo16.425.9-34.0 pgMean Corpuscular HGB Conc 33.029.9-35.2 g/dLRed Cell Distribution Width14.611.0-15.0 %Platelet Ofuzj381 150-450 10 3/uLMean Platelet Volume9.99.5-13.5 fLPerforming Lab:see noteML - [facility] LBXR tibia fibula RT 2V Reviewed date:05/07/2025 06:51:13 PM Interpretation: Performing Lab: Notes/Report: Source Facility: [place] [address] XRay Report Signed Patient: MATTY GARCES MR#: [id number] : 1970 Acct:[id number] Age/Sex: 54 / M ADM Date: 05/07/25 Loc: RAD Attending Dr: Og Allen D.O. Ordering Physician: Og Allen Date of Service: 05/07/25 Procedure(s): XR tibia fibula RT 2V Accession Number(s): [id number] cc: Venus Mendez M.D.; Og Allen [place] [address] Patient Name: MATTY GARCES MRN: [id number] date: 1970 Sex: M Assigned Patient Location: [facility] Current Patient Location: [facility] Accession/Order Number: [id number] Exam Date: 05/07/2025 11:50 Report Date: 05/07/2025 12:43 At the request of: OG ALLEN DO Procedure: XR tibia fibula RT [...] stable alignment and hardware Impression dictated by: Kaylin Contreras M.D. 05/07/2025 12:43 PM Dictation Location: [place] [address] Electronically authenticated by: [id number] Y Date: 05/07/2025 12:43 Dictated By: Kaylin Contreras D.O. Signed By: 05/07/25 1246 DD/ 1243 TD/TT: Roofing Laborer:CBC AUTO DIFF Reviewed date:06/16/2025 01:01:31 PM Interpretation: Performing Lab: Notes/Report: [facility] ,White Blood Count8.64.0-11.0 10 3/uLRed Blood Count4.764.70-6.10 10 6/uL Drgujtuvik81.414.0-18.0 g/kFYypwugeenc05.542.0-54.0 %Mean Corpuscular Gtikxb83.3 80.0-94.0 fLMean Corpuscular Jjwlprczpo13.225.9-34.0 pgMean Corpuscular HGB Conc 31.529.9-35.2 g/dLRed Cell Distribution Width13.811.0-15.0 %Platelet Xnhgw797 150-450 10 3/uLMean Platelet Vfcdbd74.09.5-13.5 fLNeutrophils Percent Auto79.1 43.0-75.0 %Lymphocytes Percent Auto10.120.5-60.0 %Monocytes Percent Auto8.31.7- 12.0 %Eosinophils Percent Auto1.40.9-7.0 %Basophils Percent Auto0.60.2-2.0 % Immature Granulocytes Pct Auto0.50.0-0.5 %Neutrophils Absolute Auto6.81.4-6.5 10 3/uLLymphocytes Absolute Auto0.91.2-3.8 10 3/uLMonocytes Absolute Auto0.70.3-0.8 10 3/uLEosinophils Absolute Auto0.10.0-0.7 10 3/uLBasophils Absolute Auto0.10.0- 0.1 10 3/uLImmature Granulocytes Abs Auto0.040.00-0.03 10 3/uLPerforming Lab:see noteML - [facility] LBCRP Reviewed date:06/16/2025 01:01:31 PM Interpretation: Performing Lab: Notes/Report: [facility] ,C Reactive Protein2.79<=0.50 mg/dLPerforming Lab:see note - [facility] LBLACTATE or LACTIC ACID Reviewed date:06/16/2025 01:01:31 PM Interpretation: Performing Lab: Notes/Report: [facility] ,Lactate/Lactic Acid1.80.4-2.0 mmol/LPerforming Lab:see note - [facility] LBPROF CHEM 8 (BAS METB) Reviewed date:06/16/2025 01:01:31 PM Interpretation: Performing Lab: Notes/Report: [facility] ,Emwghz901807-801 mmol/LPotassium3.43.5-5.1 mmol/DIgvplrqx17660-064 mmol/LCarbon Smnndnh84.821.0-32.0 mmol/LAnion Gap10.4Rolungk95121-580 mg/dLBlood Urea Pweomgbo21.07.0-18.0 mg/dLCreatinine1.040.70-1.30 mg/dLEstimated GFR ( Elizabeth>60>=60 mL/min/1.73m 2Estimated GFR (Non- Gwen>60>=60 mL/min/1.73m 2BUN Creatinine Ratio11.0Gojdorl0.38.5-10.1 mg/dLPerforming Lab:see note - [facility] LBBlood Culture 1 Reviewed date:06/21/2025 06:12:36 PM Interpretation: Performing Lab: Notes/Report: [facility] ,Blood Culture 1See Below For Report Blood Culture 1 NG5D NO GROWTH AT 5 DAYS.^NO GROWTH AT 5 DAYS. Performing Lab:see note - [facility] LBBlood Culture 2 Reviewed date:06/21/2025 06:12:36 PM Interpretation: Performing Lab: Notes/Report: [facility] ,Blood Culture 2See Below For Report Blood Culture 2 NG5D NO GROWTH AT 5 DAYS.^NO GROWTH AT 5 DAYS. Performing Lab:see note - [facility] LBErythrocyte Sedimentation Rate Reviewed date:06/16/2025 01:01:31 PM Interpretation: Performing Lab: Notes/Report: [facility] ,Erythrocyte Sedimentation Rate46<=20 mm/hrPerforming Lab:see noteML - [facility] LBAerobic Culture Reviewed date:06/19/2025 06:54:26 PM Interpretation: Performing Lab: Notes/Report: [facility] ,Aerobic CultureSee Below For Report Aerobic Culture Organism: Staphylococcus aureus : O:MRSA Isolated O:STAAUR Isolated Organism: 1.1 Antibiotic Interpretation ADAM Status Aerobic Culture*ABNORMAL* Aerobic Culture Organism: Staphylococcus aureus : O:MRSA Isolated O:STAAUR Isolated Organism: 1.1 Antibiotic Interpretation ADAM Status Aerobic CultureHeavy growth Aerobic Culture Organism: Staphylococcus aureus : O:MRSA Isolated O:STAAUR Isolated Organism: 1.1 Antibiotic Interpretation ADAM Status Aerobic Culture Aerobic Culture Organism: Staphylococcus aureus : O:MRSA Isolated O:STAAUR Isolated Organism: 1.1 Antibiotic Interpretation ADAM Status Aerobic CultureMixed skin estrellita including multiple gram negative rods. Aerobic Culture Organism: Staphylococcus aureus : O:MRSA Isolated O:STAAUR Isolated Organism: 1.1 Antibiotic Interpretation ADAM Status Aerobic CultureHeavy growth Aerobic Culture Organism: Staphylococcus aureus : O:MRSA Isolated O:STAAUR Isolated Organism: 1.1 Antibiotic Interpretation ADAM Status Aerobic CultureStaphylococcus aureus Aerobic Culture Organism: Staphylococcus aureus : O:MRSA Isolated O:STAAUR Isolated Organism: 1.1 Antibiotic Interpretation ADAM Status Aerobic CultureOrganism: Methicillin Resis Staph Aureus : Aerobic Culture Organism: Staphylococcus aureus : O:MRSA Isolated O:STAAUR Isolated Organism: 1.1 Antibiotic Interpretation ADAM Status Aerobic Culture*ABNORMAL* Aerobic Culture Organism: Staphylococcus aureus : O:MRSA Isolated O:STAAUR Isolated Organism: 1.1 Antibiotic Interpretation ADAM Status Aerobic CultureMethicillin - resistant Aerobic Culture Organism: Staphylococcus aureus : O:MRSA Isolated O:STAAUR Isolated Organism: 1.1 Antibiotic Interpretation ADAM Status Aerobic CultureBased on resistance to oxacillin this isolate would be Aerobic Culture Organism: Staphylococcus aureus : O:MRSA Isolated O:STAAUR Isolated Organism: 1.1 Antibiotic Interpretation ADAM Status Aerobic Cultureresistant to all currently available beta-lactam Aerobic Culture Organism: Staphylococcus aureus : O:MRSA Isolated O:STAAUR Isolated Organism: 1.1 Antibiotic Interpretation ADAM Status Aerobic Cultureantimicrobial agents, with the exception of the newer Aerobic Culture Organism: Staphylococcus aureus : O:MRSA Isolated O:STAAUR Isolated Organism: 1.1 Antibiotic Interpretation ADAM Status Aerobic Culturecephalosporins with anti-MRSA activity, such as Aerobic Culture Organism: Staphylococcus aureus : O:MRSA Isolated O:STAAUR Isolated Organism: 1.1 Antibiotic Interpretation ADAM Status Aerobic CultureCeftaroline Aerobic Culture Organism: Staphylococcus aureus : O:MRSA Isolated O:STAAUR Isolated Organism: 1.1 Antibiotic Interpretation ADAM Status Aerobic CultureHeavy growth Aerobic Culture Organism: Staphylococcus aureus : O:MRSA Isolated O:STAAUR Isolated Organism: 1.1 Antibiotic Interpretation ADAM Status Aerobic Culture Aerobic Culture Organism: Staphylococcus aureus : O:MRSA Isolated O:STAAUR Isolated Organism: 1.1 Antibiotic Interpretation ADAM Status Aerobic CultureMixed skin estrellita including multiple gram negative rods. Aerobic Culture Organism: Staphylococcus aureus : O:MRSA Isolated O:STAAUR Isolated Organism: 1.1 Antibiotic Interpretation ADAM Status Aerobic CultureHeavy growth Aerobic Culture Organism: Staphylococcus aureus : O:MRSA Isolated O:STAAUR Isolated Organism: 1.1 Antibiotic Interpretation ADAM Status Aerobic CultureMethicillin Resis Staph Aureus Aerobic Culture Organism: Staphylococcus aureus : O:MRSA Isolated O:STAAUR Isolated Organism: 1.1 Antibiotic Interpretation ADAM Status Aerobic CultureSee Below For Report Aerobic Culture Organism: Staphylococcus aureus : O:MRSA Isolated O:STAAUR Isolated Organism: 1.1 Antibiotic Interpretation ADAM Status Aerobic CultureSee Below For Report Aerobic Culture Organism: Staphylococcus aureus : O:MRSA Isolated O:STAAUR Isolated Organism: 1.1 Antibiotic Interpretation ADAM Status Aerobic CulturePerformed at: [facility] Aerobic Culture Organism: Staphylococcus aureus : O:MRSA Isolated O:STAAUR Isolated Organism: 1.1 Antibiotic Interpretation ADAM Status Aerobic [id number] [place] [id number] Aerobic Culture Organism: Staphylococcus aureus : O:MRSA Isolated O:STAAUR Isolated Organism: 1.1 Antibiotic Interpretation ADAM Status Aerobic CultureLab Director: Arthur Snyder PhD, Phone: [phone] Aerobic Culture Organism: Staphylococcus aureus : O:MRSA Isolated O:STAAUR Isolated Organism: 1.1 Antibiotic Interpretation ADAM Status Aerobic CultureSee Below For Report Aerobic Culture Organism: Staphylococcus aureus : O:MRSA Isolated O:STAAUR Isolated Organism: 1.1 Antibiotic Interpretation ADAM Status Aerobic CultureCiprofloxacin R F Aerobic Culture Organism: Staphylococcus aureus : O:MRSA Isolated O:STAAUR Isolated Organism: 1.1 Antibiotic Interpretation ADAM Status Aerobic CultureErythromycin R F Aerobic Culture Organism: Staphylococcus aureus : O:MRSA Isolated O:STAAUR Isolated Organism: 1.1 Antibiotic Interpretation ADAM Status Aerobic CultureGentamicin S F Aerobic Culture Organism: Staphylococcus aureus : O:MRSA Isolated O:STAAUR Isolated Organism: 1.1 Antibiotic Interpretation ADAM Status Aerobic CultureLevofloxacin R F Aerobic Culture Organism: Staphylococcus aureus : O:MRSA Isolated O:STAAUR Isolated Organism: 1.1 Antibiotic Interpretation ADAM Status Aerobic CultureLinezolid S F Aerobic Culture Organism: Staphylococcus aureus : O:MRSA Isolated O:STAAUR Isolated Organism: 1.1 Antibiotic Interpretation ADAM Status Aerobic CultureOxacillin R F Aerobic Culture Organism: Staphylococcus aureus : O:MRSA Isolated O:STAAUR Isolated Organism: 1.1 Antibiotic Interpretation ADAM Status Aerobic CulturePenicillin R F Aerobic Culture Organism: Staphylococcus aureus : O:MRSA Isolated O:STAAUR Isolated Organism: 1.1 Antibiotic Interpretation ADAM Status Aerobic CultureRifampin S F Aerobic Culture Organism: Staphylococcus aureus : O:MRSA Isolated O:STAAUR Isolated Organism: 1.1 Antibiotic Interpretation ADAM Status Aerobic CultureTetracycline R F Aerobic Culture Organism: Staphylococcus aureus : O:MRSA Isolated O:STAAUR Isolated Organism: 1.1 Antibiotic Interpretation ADAM Status Aerobic CultureTrimethoprim/Sulfamethoxazole R F Aerobic Culture Organism: Staphylococcus aureus : O:MRSA Isolated O:STAAUR Isolated Organism: 1.1 Antibiotic Interpretation ADAM Status Aerobic CultureVancomycin S F Aerobic Culture Organism: Staphylococcus aureus : O:MRSA Isolated O:STAAUR Isolated Organism: 1.1 Antibiotic Interpretation ADAM Status Aerobic CultureClindamycin S F Aerobic Culture Organism: Staphylococcus aureus : O:MRSA Isolated O:STAAUR Isolated Organism: 1.1 Antibiotic Interpretation ADAM Status Performing Lab:see note LC - [facility] LB SEE 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 Anaerobic Culture Anaerobic Culture Anaerobic Culture Anaerobic CultureNo anaerobic growth in 72 hours. Anaerobic Culture Performing Lab:see noteLC - [facility] LBXR foot LT min 3V Reviewed date:06/16/2025 01:01:31 PM Interpretation: Performing Lab: Notes/Report: Source Facility: [place] [address] [address] XRay Report Signed Patient: MATTY GARCES MR#: [id number] : 1970 Acct:[id number] Age/Sex: 54 / M ADM Date: 06/16/25 Loc: [place] 201-[address]: Bonnie Tobar M.D. Ordering Physician: Sera Wayne M.D. Date of Service: 06/16/25 Procedure(s): XR foot LT min 3V Accession Number(s): [id number] cc: Venus Mendez M.D.; Sera Wayne M.D. [place] [address] Patient Name: MATTY GARCES MRN: [id number] date: 1970 Sex: M Assigned Patient Location: ED.MAIN Current Patient Location: [place] Accession/Order Number: [id number] Exam Date: 06/16/2025 02:06 Report Date: 06/16/2025 [...] Jr., D.O. 06/16/2025 8:38 AM Dictation Location: [place] [address] Electronically authenticated by: [id number] Y Date: 06/16/2025 08:38 Dictated By: Bora Gomez M.D. Signed By: 06/16/2540 DD/ 7 TD/TT: Roofing Laborer:CRP Reviewed date:06/16/2025 01:01:31 PM Interpretation: Performing Lab: Notes/Report: [facility] ,C Reactive Protein2.79<=0.50 mg/dLPerforming Lab:see [facility] LBErythrocyte Sedimentation Rate Reviewed date:06/16/2025 01:01:31 PM Interpretation: Performing Lab: Notes/Report: [facility] ,Erythrocyte Sedimentation Rate61<=20 mm/hrPerforming Lab:see [facility] LBAerobic Culture Reviewed date:06/22/2025 12:38:34 PM Interpretation: Performing Lab: Notes/Report: [facility] ,Aerobic CultureSee Below For Report Aerobic Culture Organism: Staphylococcus aureus : O:MRSA Isolated O:STAAUR Isolated Organism: 2.1 Antibiotic Interpretation ADAM Status Ciprofloxacin Ciprofloxacin R F Erythromycin Erythromycin R F Gentamicin Gentamicin S F Levofloxacin Levofloxacin R F Linezolid Linezolid S F Oxacillin Oxacillin R F Penicillin Penicillin R F Rifampin Rifampin S F Tetracycline Tetracycline R F Trimethoprim/Sulfamethoxazole Trimethoprim/Sulfamethoxazole R F Vancomycin Vancomycin S F Clindamycin Clindamycin S F Aerobic Culture*ABNORMAL* Aerobic Culture Organism: Staphylococcus aureus : O:MRSA Isolated O:STAAUR Isolated Organism: 2.1 Antibiotic Interpretation ADAM Status Ciprofloxacin Ciprofloxacin R F Erythromycin Erythromycin R F Gentamicin Gentamicin S F Levofloxacin Levofloxacin R F Linezolid Linezolid S F Oxacillin Oxacillin R F Penicillin Penicillin R F Rifampin Rifampin S F Tetracycline Tetracycline R F Trimethoprim/Sulfamethoxazole Trimethoprim/Sulfamethoxazole R F Vancomycin Vancomycin S F Clindamycin Clindamycin S F Aerobic CultureHeavy growth Aerobic Culture Organism: Staphylococcus aureus : O:MRSA Isolated O:STAAUR Isolated Organism: 2.1 Antibiotic Interpretation ADAM Status Ciprofloxacin Ciprofloxacin R F Erythromycin Erythromycin R F Gentamicin Gentamicin S F Levofloxacin Levofloxacin R F Linezolid Linezolid S F Oxacillin Oxacillin R F Penicillin Penicillin R F Rifampin Rifampin S F Tetracycline Tetracycline R F Trimethoprim/Sulfamethoxazole Trimethoprim/Sulfamethoxazole R F Vancomycin Vancomycin S F Clindamycin [...] Rifampin S F Tetracycline Tetracycline R F Trimethoprim/Sulfamethoxazole Trimethoprim/Sulfamethoxazole R F Vancomycin Vancomycin S F Clindamycin Clindamycin S F Aerobic CultureMixed skin estrellita including multiple gram negative rods. Aerobic Culture Organism: Staphylococcus aureus : O:MRSA Isolated O:STAAUR Isolated Organism: 2.1 Antibiotic Interpretation ADAM Status Ciprofloxacin Ciprofloxacin R F Erythromycin Erythromycin R F Gentamicin Gentamicin S F Levofloxacin Levofloxacin R F Linezolid Linezolid S F Oxacillin Oxacillin R F Penicillin Penicillin R F Rifampin Rifampin S F Tetracycline Tetracycline R F Trimethoprim/Sulfamethoxazole Trimethoprim/Sulfamethoxazole R F Vancomycin Vancomycin S F Clindamycin Clindamycin S F Aerobic CultureHeavy growth Aerobic Culture Organism: Staphylococcus aureus : O:MRSA Isolated O:STAAUR Isolated Organism: 2.1 Antibiotic Interpretation ADAM Status Ciprofloxacin Ciprofloxacin R F Erythromycin Erythromycin R F Gentamicin Gentamicin S F Levofloxacin Levofloxacin R F Linezolid Linezolid S F Oxacillin Oxacillin R F Penicillin Penicillin R F Rifampin Rifampin S F Tetracycline Tetracycline R F Trimethoprim/Sulfamethoxazole Trimethoprim/Sulfamethoxazole R F Vancomycin Vancomycin S F Clindamycin Clindamycin S F Aerobic CultureStaphylococcus aureus Aerobic Culture Organism: Staphylococcus aureus : O:MRSA Isolated O:STAAUR Isolated Organism: 2.1 Antibiotic Interpretation ADAM Status Ciprofloxacin Ciprofloxacin R F Erythromycin Erythromycin R F Gentamicin Gentamicin S F Levofloxacin Levofloxacin R F Linezolid Linezolid S F Oxacillin Oxacillin R F Penicillin Penicillin R F Rifampin Rifampin S F Tetracycline Tetracycline R F Trimethoprim/Sulfamethoxazole Trimethoprim/Sulfamethoxazole R F Vancomycin Vancomycin S F Clindamycin Clindamycin S F Aerobic CultureOrganism: Methicillin Resis Staph Aureus : Aerobic Culture Organism: Staphylococcus aureus : O:MRSA Isolated O:STAAUR Isolated Organism: 2.1 Antibiotic Interpretation ADAM Status Ciprofloxacin Ciprofloxacin R F Erythromycin Erythromycin R F Gentamicin Gentamicin S F Levofloxacin Levofloxacin R F Linezolid Linezolid S F Oxacillin Oxacillin R F Penicillin Penicillin R F Rifampin Rifampin S F Tetracycline Tetracycline R F Trimethoprim/Sulfamethoxazole Trimethoprim/Sulfamethoxazole R F Vancomycin Vancomycin S F Clindamycin Clindamycin S F Aerobic Culture*ABNORMAL* Aerobic Culture Organism: Staphylococcus aureus : O:MRSA Isolated O:STAAUR Isolated Organism: 2.1 Antibiotic Interpretation ADAM Status Ciprofloxacin Ciprofloxacin R F Erythromycin Erythromycin R F Gentamicin Gentamicin S F Levofloxacin Levofloxacin R F Linezolid Linezolid S F Oxacillin Oxacillin R F Penicillin Penicillin R F Rifampin Rifampin S F Tetracycline Tetracycline R F Trimethoprim/Sulfamethoxazole Trimethoprim/Sulfamethoxazole R F Vancomycin Vancomycin S F Clindamycin Clindamycin S F Aerobic CultureMethicillin - resistant Aerobic Culture Organism: Staphylococcus aureus : O:MRSA Isolated O:STAAUR Isolated Organism: 2.1 Antibiotic Interpretation ADAM Status Ciprofloxacin Ciprofloxacin R F Erythromycin Erythromycin R F Gentamicin Gentamicin S F Levofloxacin Levofloxacin R F Linezolid Linezolid S F Oxacillin Oxacillin R F Penicillin Penicillin R F Rifampin Rifampin S F Tetracycline Tetracycline R F Trimethoprim/Sulfamethoxazole Trimethoprim/Sulfamethoxazole R F Vancomycin Vancomycin S F Clindamycin Clindamycin S F Aerobic CultureBased on resistance to oxacillin this isolate would be Aerobic Culture Organism: Staphylococcus aureus : O:MRSA Isolated O:STAAUR Isolated Organism: 2.1 Antibiotic Interpretation ADAM Status Ciprofloxacin Ciprofloxacin R F Erythromycin Erythromycin R F Gentamicin Gentamicin S F Levofloxacin Levofloxacin R F Linezolid Linezolid S F Oxacillin Oxacillin R F Penicillin Penicillin R F Rifampin Rifampin S F Tetracycline Tetracycline R F Trimethoprim/Sulfamethoxazole Trimethoprim/Sulfamethoxazole R F Vancomycin Vancomycin S F Clindamycin Clindamycin S F Aerobic Cultureresistant to all currently available beta-lactam Aerobic Culture Organism: Staphylococcus aureus : O:MRSA Isolated O:STAAUR Isolated Organism: 2.1 Antibiotic Interpretation ADAM Status Ciprofloxacin Ciprofloxacin R F Erythromycin Erythromycin R F Gentamicin Gentamicin S F Levofloxacin Levofloxacin R F Linezolid Linezolid S F Oxacillin Oxacillin R F Penicillin Penicillin R F Rifampin Rifampin S F Tetracycline Tetracycline R F Trimethoprim/Sulfamethoxazole Trimethoprim/Sulfamethoxazole R F Vancomycin Vancomycin S F Clindamycin Clindamycin S F Aerobic Cultureantimicrobial agents, with the exception of the newer Aerobic Culture Organism: Staphylococcus aureus : O:MRSA Isolated O:STAAUR Isolated Organism: 2.1 Antibiotic Interpretation ADAM Status Ciprofloxacin Ciprofloxacin R F Erythromycin Erythromycin R F Gentamicin Gentamicin S F Levofloxacin Levofloxacin R F Linezolid Linezolid S F Oxacillin Oxacillin R F Penicillin Penicillin R F Rifampin Rifampin S F Tetracycline Tetracycline R F Trimethoprim/Sulfamethoxazole Trimethoprim/Sulfamethoxazole R F Vancomycin Vancomycin S F Clindamycin Clindamycin S F Aerobic Culturecephalosporins with anti-MRSA activity, such as Aerobic Culture Organism: Staphylococcus aureus : O:MRSA Isolated O:STAAUR Isolated Organism: 2.1 Antibiotic Interpretation ADAM Status Ciprofloxacin Ciprofloxacin R F Erythromycin Erythromycin R F Gentamicin Gentamicin S F Levofloxacin Levofloxacin R F Linezolid Linezolid S F Oxacillin Oxacillin R F Penicillin Penicillin R F Rifampin Rifampin S F Tetracycline Tetracycline R F Trimethoprim/Sulfamethoxazole Trimethoprim/Sulfamethoxazole R F Vancomycin Vancomycin S F Clindamycin Clindamycin S F Aerobic CultureCeftaroline Aerobic Culture Organism: Staphylococcus aureus : O:MRSA Isolated O:STAAUR Isolated Organism: 2.1 Antibiotic Interpretation ADAM Status Ciprofloxacin Ciprofloxacin R F Erythromycin Erythromycin R F Gentamicin Gentamicin S F Levofloxacin Levofloxacin R F Linezolid Linezolid S F Oxacillin Oxacillin R F Penicillin Penicillin R F Rifampin Rifampin S F Tetracycline Tetracycline R F Trimethoprim/Sulfamethoxazole Trimethoprim/Sulfamethoxazole R F Vancomycin Vancomycin S F Clindamycin Clindamycin S F Aerobic CultureHeavy growth Aerobic Culture Organism: Staphylococcus aureus : O:MRSA Isolated O:STAAUR Isolated Organism: 2.1 Antibiotic Interpretation ADAM Status Ciprofloxacin Ciprofloxacin R F Erythromycin Erythromycin R F Gentamicin Gentamicin S F Levofloxacin Levofloxacin R F Linezolid Linezolid S F Oxacillin Oxacillin R F Penicillin Penicillin R F Rifampin Rifampin S F Tetracycline Tetracycline R F Trimethoprim/Sulfamethoxazole Trimethoprim/Sulfamethoxazole R F Vancomycin Vancomycin S F Clindamycin [...] Rifampin S F Tetracycline Tetracycline R F Trimethoprim/Sulfamethoxazole Trimethoprim/Sulfamethoxazole R F Vancomycin Vancomycin S F Clindamycin Clindamycin S F Aerobic CultureMixed skin estrellita including multiple gram negative rods. Aerobic Culture Organism: Staphylococcus aureus : O:MRSA Isolated O:STAAUR Isolated Organism: 2.1 Antibiotic Interpretation ADAM Status Ciprofloxacin Ciprofloxacin R F Erythromycin Erythromycin R F Gentamicin Gentamicin S F Levofloxacin Levofloxacin R F Linezolid Linezolid S F Oxacillin Oxacillin R F Penicillin Penicillin R F Rifampin Rifampin S F Tetracycline Tetracycline R F Trimethoprim/Sulfamethoxazole Trimethoprim/Sulfamethoxazole R F Vancomycin Vancomycin S F Clindamycin Clindamycin S F Aerobic CultureHeavy growth Aerobic Culture Organism: Staphylococcus aureus : O:MRSA Isolated O:STAAUR Isolated Organism: 2.1 Antibiotic Interpretation ADAM Status Ciprofloxacin Ciprofloxacin R F Erythromycin Erythromycin R F Gentamicin Gentamicin S F Levofloxacin Levofloxacin R F Linezolid Linezolid S F Oxacillin Oxacillin R F Penicillin Penicillin R F Rifampin Rifampin S F Tetracycline Tetracycline R F Trimethoprim/Sulfamethoxazole Trimethoprim/Sulfamethoxazole R F Vancomycin Vancomycin S F Clindamycin Clindamycin S F Aerobic CultureMethicillin Resis Staph Aureus Aerobic Culture Organism: Staphylococcus aureus : O:MRSA Isolated O:STAAUR Isolated Organism: 2.1 Antibiotic Interpretation ADAM Status Ciprofloxacin Ciprofloxacin R F Erythromycin Erythromycin R F Gentamicin Gentamicin S F Levofloxacin Levofloxacin R F Linezolid Linezolid S F Oxacillin Oxacillin R F Penicillin Penicillin R F Rifampin Rifampin S F Tetracycline Tetracycline R F Trimethoprim/Sulfamethoxazole Trimethoprim/Sulfamethoxazole R F Vancomycin Vancomycin S F Clindamycin Clindamycin S F Aerobic CultureSee Below For Report Aerobic Culture Organism: Staphylococcus aureus : O:MRSA Isolated O:STAAUR Isolated Organism: 2.1 Antibiotic Interpretation ADAM Status Ciprofloxacin Ciprofloxacin R F Erythromycin Erythromycin R F Gentamicin Gentamicin S F Levofloxacin Levofloxacin R F Linezolid Linezolid S F Oxacillin Oxacillin R F Penicillin Penicillin R F Rifampin Rifampin S F Tetracycline Tetracycline R F Trimethoprim/Sulfamethoxazole Trimethoprim/Sulfamethoxazole R F Vancomycin Vancomycin S F Clindamycin Clindamycin S F Aerobic CultureSee Below For Report Aerobic Culture Organism: Staphylococcus aureus : O:MRSA Isolated O:STAAUR Isolated Organism: 2.1 Antibiotic Interpretation ADAM Status Ciprofloxacin Ciprofloxacin R F Erythromycin Erythromycin R F Gentamicin Gentamicin S F Levofloxacin Levofloxacin R F Linezolid Linezolid S F Oxacillin Oxacillin R F Penicillin Penicillin R F Rifampin Rifampin S F Tetracycline Tetracycline R F Trimethoprim/Sulfamethoxazole Trimethoprim/Sulfamethoxazole R F Vancomycin Vancomycin S F Clindamycin Clindamycin S F Aerobic CulturePerformed at: [facility] Aerobic Culture Organism: Staphylococcus aureus : O:MRSA Isolated O:STAAUR Isolated Organism: 2.1 Antibiotic Interpretation ADAM Status Ciprofloxacin Ciprofloxacin R F Erythromycin Erythromycin R F Gentamicin Gentamicin S F Levofloxacin Levofloxacin R F Linezolid Linezolid S F Oxacillin Oxacillin R F Penicillin Penicillin R F Rifampin Rifampin S F Tetracycline Tetracycline R F Trimethoprim/Sulfamethoxazole Trimethoprim/Sulfamethoxazole R F Vancomycin Vancomycin S F Clindamycin Clindamycin S F Aerobic [id number] [place], [place] [id number] Aerobic Culture Organism: Staphylococcus aureus : O:MRSA Isolated O:STAAUR Isolated Organism: 2.1 Antibiotic Interpretation ADAM Status Ciprofloxacin Ciprofloxacin R F Erythromycin Erythromycin R F Gentamicin Gentamicin S F Levofloxacin Levofloxacin R F Linezolid Linezolid S F Oxacillin Oxacillin R F Penicillin Penicillin R F Rifampin Rifampin S F Tetracycline Tetracycline R F Trimethoprim/Sulfamethoxazole Trimethoprim/Sulfamethoxazole R F Vancomycin Vancomycin S F Clindamycin Clindamycin S F Aerobic CultureLab Director: Arthur Snyder PhD, Phone: [phone] Aerobic Culture Organism: Staphylococcus aureus : O:MRSA Isolated O:STAAUR Isolated Organism: 2.1 Antibiotic Interpretation ADAM Status Ciprofloxacin Ciprofloxacin R F Erythromycin Erythromycin R F Gentamicin Gentamicin S F Levofloxacin Levofloxacin R F Linezolid Linezolid S F Oxacillin Oxacillin R F Penicillin Penicillin R F Rifampin Rifampin S F Tetracycline Tetracycline R F Trimethoprim/Sulfamethoxazole Trimethoprim/Sulfamethoxazole R F Vancomycin Vancomycin S F Clindamycin Clindamycin S F Aerobic CultureSee Below For Report Aerobic Culture Organism: Staphylococcus aureus : O:MRSA Isolated O:STAAUR Isolated Organism: 2.1 Antibiotic Interpretation ADAM Status Ciprofloxacin Ciprofloxacin R F Erythromycin Erythromycin R F Gentamicin Gentamicin S F Levofloxacin Levofloxacin R F Linezolid Linezolid S F Oxacillin Oxacillin R F Penicillin Penicillin R F Rifampin Rifampin S F Tetracycline Tetracycline R F Trimethoprim/Sulfamethoxazole Trimethoprim/Sulfamethoxazole R F Vancomycin Vancomycin S F Clindamycin Clindamycin S F Aerobic CultureSee Below For Report Aerobic Culture Organism: Staphylococcus aureus : O:MRSA Isolated O:STAAUR Isolated Organism: 2.1 Antibiotic Interpretation ADAM Status Ciprofloxacin Ciprofloxacin R F Erythromycin Erythromycin R F Gentamicin Gentamicin S F Levofloxacin Levofloxacin R F Linezolid Linezolid S F Oxacillin Oxacillin R F Penicillin Penicillin R F Rifampin Rifampin S F Tetracycline Tetracycline R F Trimethoprim/Sulfamethoxazole Trimethoprim/Sulfamethoxazole R F Vancomycin Vancomycin S F Clindamycin Clindamycin S F Aerobic CultureSee Below For Report Aerobic Culture Organism: Staphylococcus aureus : O:MRSA Isolated O:STAAUR Isolated Organism: 2.1 Antibiotic Interpretation ADAM Status Ciprofloxacin Ciprofloxacin R F Erythromycin Erythromycin R F Gentamicin Gentamicin S F Levofloxacin Levofloxacin R F Linezolid Linezolid S F Oxacillin Oxacillin R F Penicillin Penicillin R F Rifampin Rifampin S F Tetracycline Tetracycline R F Trimethoprim/Sulfamethoxazole Trimethoprim/Sulfamethoxazole R F Vancomycin Vancomycin S F Clindamycin Clindamycin S F Aerobic CultureSee Below For Report Aerobic Culture Organism: Staphylococcus aureus : O:MRSA Isolated O:STAAUR Isolated Organism: 2.1 Antibiotic Interpretation ADAM Status Ciprofloxacin Ciprofloxacin R F Erythromycin Erythromycin R F Gentamicin Gentamicin S F Levofloxacin Levofloxacin R F Linezolid Linezolid S F Oxacillin Oxacillin R F Penicillin Penicillin R F Rifampin Rifampin S F Tetracycline Tetracycline R F Trimethoprim/Sulfamethoxazole Trimethoprim/Sulfamethoxazole R F Vancomycin Vancomycin S F Clindamycin Clindamycin S F Aerobic CultureSee Below For Report Aerobic Culture Organism: Staphylococcus aureus : O:MRSA Isolated O:STAAUR Isolated Organism: 2.1 Antibiotic Interpretation ADAM Status Ciprofloxacin Ciprofloxacin R F Erythromycin Erythromycin R F Gentamicin Gentamicin S F Levofloxacin Levofloxacin R F Linezolid Linezolid S F Oxacillin Oxacillin R F Penicillin Penicillin R F Rifampin Rifampin S F Tetracycline Tetracycline R F Trimethoprim/Sulfamethoxazole Trimethoprim/Sulfamethoxazole R F Vancomycin Vancomycin S F Clindamycin Clindamycin S F Aerobic CultureSee Below For Report Aerobic Culture Organism: Staphylococcus aureus : O:MRSA Isolated O:STAAUR Isolated Organism: 2.1 Antibiotic Interpretation ADAM Status Ciprofloxacin Ciprofloxacin R F Erythromycin Erythromycin R F Gentamicin Gentamicin S F Levofloxacin Levofloxacin R F Linezolid Linezolid S F Oxacillin Oxacillin R F Penicillin Penicillin R F Rifampin Rifampin S F Tetracycline Tetracycline R F Trimethoprim/Sulfamethoxazole Trimethoprim/Sulfamethoxazole R F Vancomycin Vancomycin S F Clindamycin Clindamycin S F Aerobic CultureSee Below For Report Aerobic Culture Organism: Staphylococcus aureus : O:MRSA Isolated O:STAAUR Isolated Organism: 2.1 Antibiotic Interpretation ADAM Status Ciprofloxacin Ciprofloxacin R F Erythromycin Erythromycin R F Gentamicin Gentamicin S F Levofloxacin Levofloxacin R F Linezolid Linezolid S F Oxacillin Oxacillin R F Penicillin Penicillin R F Rifampin Rifampin S F Tetracycline Tetracycline R F Trimethoprim/Sulfamethoxazole Trimethoprim/Sulfamethoxazole R F Vancomycin Vancomycin S F Clindamycin Clindamycin S F Aerobic CultureSee Below For Report Aerobic Culture Organism: Staphylococcus aureus : O:MRSA Isolated O:STAAUR Isolated Organism: 2.1 Antibiotic Interpretation ADAM Status Ciprofloxacin Ciprofloxacin R F Erythromycin Erythromycin R F Gentamicin Gentamicin S F Levofloxacin Levofloxacin R F Linezolid Linezolid S F Oxacillin Oxacillin R F Penicillin Penicillin R F Rifampin Rifampin S F Tetracycline Tetracycline R F Trimethoprim/Sulfamethoxazole Trimethoprim/Sulfamethoxazole R F Vancomycin Vancomycin S F Clindamycin Clindamycin S F Aerobic CultureSee Below For Report Aerobic Culture Organism: Staphylococcus aureus : O:MRSA Isolated O:STAAUR Isolated Organism: 2.1 Antibiotic Interpretation ADAM Status Ciprofloxacin Ciprofloxacin R F Erythromycin Erythromycin R F Gentamicin Gentamicin S F Levofloxacin Levofloxacin R F Linezolid Linezolid S F Oxacillin Oxacillin R F Penicillin Penicillin R F Rifampin Rifampin S F Tetracycline Tetracycline R F Trimethoprim/Sulfamethoxazole Trimethoprim/Sulfamethoxazole R F Vancomycin Vancomycin S F Clindamycin Clindamycin S F Aerobic CultureSee Below For Report Aerobic Culture Organism: Staphylococcus aureus : O:MRSA Isolated O:STAAUR Isolated Organism: 2.1 Antibiotic Interpretation ADAM Status Ciprofloxacin Ciprofloxacin R F Erythromycin Erythromycin R F Gentamicin Gentamicin S F Levofloxacin Levofloxacin R F Linezolid Linezolid S F Oxacillin Oxacillin R F Penicillin Penicillin R F Rifampin Rifampin S F Tetracycline Tetracycline R F Trimethoprim/Sulfamethoxazole Trimethoprim/Sulfamethoxazole R F Vancomycin Vancomycin S F Clindamycin Clindamycin S F Aerobic CultureSee Below For Report Aerobic Culture Organism: Staphylococcus aureus : O:MRSA Isolated O:STAAUR Isolated Organism: 2.1 Antibiotic Interpretation ADAM Status Ciprofloxacin Ciprofloxacin R F Erythromycin Erythromycin R F Gentamicin Gentamicin S F Levofloxacin Levofloxacin R F Linezolid Linezolid S F Oxacillin Oxacillin R F Penicillin Penicillin R F Rifampin Rifampin S F Tetracycline Tetracycline R F Trimethoprim/Sulfamethoxazole Trimethoprim/Sulfamethoxazole R F Vancomycin Vancomycin S F Clindamycin Clindamycin S F Aerobic CultureSee Below For Report Aerobic Culture Organism: Staphylococcus aureus : O:MRSA Isolated O:STAAUR Isolated Organism: 2.1 Antibiotic Interpretation ADAM Status Ciprofloxacin Ciprofloxacin R F Erythromycin Erythromycin R F Gentamicin Gentamicin S F Levofloxacin Levofloxacin R F Linezolid Linezolid S F Oxacillin Oxacillin R F Penicillin Penicillin R F Rifampin Rifampin S F Tetracycline Tetracycline R F Trimethoprim/Sulfamethoxazole Trimethoprim/Sulfamethoxazole R F Vancomycin Vancomycin S F Clindamycin Clindamycin S F Aerobic CultureSee Below For Report Aerobic Culture Organism: Staphylococcus aureus : O:MRSA Isolated O:STAAUR Isolated Organism: 2.1 Antibiotic Interpretation ADAM Status Ciprofloxacin Ciprofloxacin R F Erythromycin Erythromycin R F Gentamicin Gentamicin S F Levofloxacin Levofloxacin R F Linezolid Linezolid S F Oxacillin Oxacillin R F Penicillin Penicillin R F Rifampin Rifampin S F Tetracycline Tetracycline R F Trimethoprim/Sulfamethoxazole Trimethoprim/Sulfamethoxazole R F Vancomycin Vancomycin S F Clindamycin Clindamycin S F Performing Lab:see note LC - [facility] LB SEE REPORT - Spinning Lathe Operator Id information not found for OBX-specific movie producer legend CBC AUTO DIFF Reviewed date:06/17/2025 02:23:52 PM Interpretation: Performing Lab: Notes/Report: [facility] ,White Blood Count8.34.0-11.0 10 3/uLRed Blood Count5.194.70-6.10 10 6/uL Ctvkhczruk03.814.0-18.0 g/vTXhynqodjgd46.142.0-54.0 %Mean Corpuscular Vlbqfh07.8 80.0-94.0 fLMean Corpuscular Zybzhconkn67.525.9-34.0 pgMean Corpuscular HGB Conc 32.129.9-35.2 g/dLRed Cell Distribution Width13.811.0-15.0 %Platelet Yphwt132 150-450 10 3/uLMean Platelet Gtywnn14.29.5-13.5 fLNeutrophils Percent Auto79.0 43.0-75.0 %Lymphocytes Percent Auto10.320.5-60.0 %Monocytes Percent Auto7.31.7- 12.0 %Eosinophils Percent Auto2.30.9-7.0 %Basophils Percent Auto0.60.2-2.0 % Immature Granulocytes Pct Auto0.50.0-0.5 %Neutrophils Absolute Auto6.51.4-6.5 10 3/uLLymphocytes Absolute Auto0.91.2-3.8 10 3/uLMonocytes Absolute Auto0.60.3-0.8 10 3/uLEosinophils Absolute Auto0.20.0-0.7 10 3/uLBasophils Absolute Auto0.10.0- 0.1 10 3/uLImmature Granulocytes Abs Auto0.040.00-0.03 10 3/uLPerforming Lab:see note - [facility] LBCRP Reviewed date:06/17/2025 02:23:52 PM Interpretation: Performing Lab: Notes/Report: [facility] ,C Reactive Protein2.92<=0.50 mg/dLPerforming Lab:see note - [facility] LBPROF CHEM 8 (BAS METB) Reviewed date:06/17/2025 02:23:52 PM Interpretation: Performing Lab: Notes/Report: [facility] ,Kwnfju549002-119 mmol/LPotassium3.83.5-5.1 mmol/SFbmjqvas15366-875 mmol/LCarbon Iwynrfh17.121.0-32.0 mmol/LAnion Gap12.5Owrcemz66188-142 mg/dLBlood Urea Nitrogen7.07.0-18.0 mg/dLCreatinine0.810.70-1.30 mg/dLEstimated GFR ( Elizabeth>60>=60 mL/min/1.73m 2Estimated GFR (Non- Gwen>60>=60 mL/min/1.73m 2BUN Creatinine Ratio8.5Ljqkkbs1.58.5-10.1 mg/dLPerforming Lab:see note - [facility] LBErythrocyte Sedimentation Rate Reviewed date:06/17/2025 02:23:52 PM Interpretation: Performing Lab: Notes/Report: [facility] ,Erythrocyte Sedimentation Rate88<=20 mm/hrPerforming Lab:see noteML - [facility] LBCBC AUTO DIFF Reviewed date:06/18/2025 12:55:01 PM Interpretation: Performing Lab: Notes/Report: [facility] ,White Blood Count7.74.0-11.0 10 3/uLRed Blood Count5.094.70-6.10 10 6/uL Uhhhzaphmq53.214.0-18.0 g/lQKvdgtbybmn20.842.0-54.0 %Mean Corpuscular Vqirjy51.0 80.0-94.0 fLMean Corpuscular Cmsztnalnr19.925.9-34.0 pgMean Corpuscular HGB Conc 31.729.9-35.2 g/dLRed Cell Distribution Width13.711.0-15.0 %Platelet Hfahf776 150-450 10 3/uLMean Platelet Volume9.99.5-13.5 fLNeutrophils Percent Auto74.9 43.0-75.0 %Lymphocytes Percent Auto12.620.5-60.0 %Monocytes Percent Auto8.61.7- 12.0 %Eosinophils Percent Auto2.50.9-7.0 %Basophils Percent Auto0.80.2-2.0 % Immature Granulocytes Pct Auto0.60.0-0.5 %Neutrophils Absolute Auto5.81.4-6.5 10 3/uLLymphocytes Absolute Auto1.01.2-3.8 10 3/uLMonocytes Absolute Auto0.70.3-0.8 10 3/uLEosinophils Absolute Auto0.20.0-0.7 10 3/uLBasophils Absolute Auto0.10.0- 0.1 10 3/uLImmature Granulocytes Abs Auto0.050.00-0.03 10 3/uLPerforming Lab:see noteML - [facility] LBCRP Reviewed date:06/18/2025 12:55:01 PM Interpretation: Performing Lab: Notes/Report: [facility] ,C Reactive Protein1.51<=0.50 mg/dLPerforming Lab:see noteML - [facility] LBGLYCOHEMOGLOBIN A1C Reviewed date:06/18/2025 12:55:01 PM Interpretation: Performing Lab: Notes/Report: Comment Add to an already drawn sample [facility] ,Glycohemoglobin A1C5.84.5-6.2 % ADA RECOMMENDED LIMIT 4.0 - 6.0 ADA THERAPEUTIC TARGET < 7.0 ACTION SUGGESTED > 7.0 Estimated Average Vbognax567Baqnyiypwx Lab:see noteML - [facility] LB PROF CHEM 8 (BAS METB) Reviewed date:06/18/2025 12:55:01 PM Interpretation: Performing Lab: Notes/Report: [facility] ,Zuztgr120799-222 mmol/LPotassium3.93.5-5.1 mmol/OLksdfrhs90377-239 mmol/LCarbon Uuqlzdk35.421.0-32.0 mmol/LAnion Gap10.9Kcxwtpv8799-586 mg/dLBlood Urea Nitrogen 8.07.0-18.0 mg/dLCreatinine1.010.70-1.30 mg/dLEstimated GFR ( Elizabeth>60 >=60 mL/min/1.73m 2Estimated GFR (Non- Gwen>60>=60 mL/min/1.73m 2BUN Creatinine Ratio7.6Luziftk8.78.5-10.1 mg/dLPerforming Lab:see noteML - [facility] LBVANCOMYCIN TROUGH Reviewed date:06/18/2025 12:55:01 PM Interpretation: Performing Lab: Notes/Report: [facility] ,Vancomycin Hkomoe07.95.0-20.0 ug/mLPerforming Lab:see noteML - [facility] LBErythrocyte Sedimentation Rate Reviewed date:06/18/2025 12:55:01 PM Interpretation: Performing Lab: Notes/Report: [facility] ,Erythrocyte Sedimentation Rate71<=20 mm/hrPerforming Lab:see noteML - [facility] LBXR FOREIGN BODY EYE Reviewed date:06/18/2025 02:32:50 PM Interpretation: Performing Lab: Notes/Report: Source Facility: [facility]-[address] [place] [address] [place] [address] XRay Report Signed Patient: MATTY GARCES MR#: [id number] : 1970 Acct:[id number] Age/Sex: 54 / M ADM Date: 06/16/25 Loc: MS 201-[address]: Bonnie Tobar M.D. Ordering Physician: Bonnie Tobar M.D. Date of Service: 06/18/25 Procedure(s): XR foreign body eye UBALDO Accession Number(s): [id number] cc: Venus Mendez M.D.; Bonnie Tobar M.D. [place] [address] Patient Name: MATTY GARCES MRN: [facility]:[id number] date: 1970 Sex: M Assigned Patient Location: MS Current Patient Location: MS Accession/Order Number: [id number] Exam Date: 06/18/2025 13:15 Report Date: 06/18/2025 13:22 At the request of: BONNIE TOBAR MD Procedure: XR foreign body eye UBALDO Orbits 2 views. Reason for exam: Pre-MRI. FINDINGS: No radiopaque foreign body. No bony destruction. XR/XR foreign body eye UBALDO IMPRESSION: No radio opaque foreign body. Impression dictated by: Bora Gomez Jr., D.O. 06/18/2025 1:22 PM Dictation Location: [place] [address] Electronically authenticated by: [id number] Y Date: 06/18/2025 13:22 Dictated By: Bora Gomez M.D. Signed By: 06/18/25 1325 DD/ 1322 TD/TT: Roofing Laborer:MR maddy arroyo Reviewed date:06/19/2025 06:54:26 PM Interpretation: Performing Lab: Notes/Report: Source Facility: [place] [address] [place] [address] Magnetic Resonance Report Signed Patient: MATTY GARCES MR#: [id number] : 1970 Acct:[id number] Age/Sex: 54 / M ADM Date: 06/16/25 Loc: MS 201-[address]: Bonnie Tobar M.D. Ordering Physician: Bonnie Tobar M.D. Date of Service: 06/18/25 Procedure(s): MR foot LT wo con Accession Number(s): [id number] cc: Venus Mendez M.D.; Bonnie Tobar M.D. [place] [id number] Patient Name: MATTY GARCES MRN: [facility]:[id number] date: 1970 Sex: M Assigned Patient Location: MS Current Patient Location: MS Accession/Order Number: [id number] Exam Date: 06/18/2025 13:30 Report Date: 06/18/2025 [...] Irving M.D. 06/18/2025 7:34 PM Dictation Location: [place] [address] Electronically authenticated by: [id number] Y Date: 06/18/2025 19:34 Dictated By: Francis Irving M.D. Signed By: 06/18/251936 DD/ 33 TD/TT: Roofing Laborer:PROF KYLE Roe ([facility]) Reviewed date:06/19/2025 06:54:26 PM Interpretation: Performing Lab: Notes/Report: [facility] ,Qmyvvb623104-529 mmol/LPotassium3.93.5-5.1 mmol/LCyvmaojd86164-160 mmol/LCarbon Ibkaxmg33.721.0-32.0 mmol/LAnion Gap11.5Xfnvyxt16589-985 mg/dLBlood Urea Oamggtsc22.07.0-18.0 mg/dLCreatinine0.880.70-1.30 mg/dLEstimated GFR ( Elizabeth>60>=60 mL/min/1.73m 2Estimated GFR (Non- Gwen>60>=60 mL/min/1.73m 2BUN Creatinine Ratio11.8Okzxsew2.38.5-10.1 mg/dLPerforming Lab:see noteML - [facility] LBAFB Specimen Processing Reviewed date:06/21/2025 12:47:02 PM Interpretation: Performing Lab: Notes/Report: 1ST LEFT METATASAL CX [facility] ,AFB Specimen ProcessingSee Below For Report AFB Specimen Processing AFB Specimen ProcessingTissue Grinding AFB Specimen Processing Performing Lab:see noteLC - [facility] LBAcid Fast Smear Reviewed date:06/21/2025 12:47:02 PM Interpretation: Performing Lab: Notes/Report: 1ST LEFT METATASAL CX [facility] ,Acid Fast SmearSee Below For Report Acid Fast Smear Negative Performing Lab[facility] LBAcid Fast Culture Reviewed date:06/21/2025 12:47:02 PM Interpretation: Performing Lab: Notes/Report: 1ST LEFT METATASAL CX [facility] ,Acid Fast CultureSee Below For Report Acid Fast Culture Specimen has been received and testing has been initiated. Acid Fast CulturePerformed at: [facility] Acid Fast Culture Specimen has been received and testing has been initiated. Acid Fast [address] [place], [place] [id number] Acid Fast Culture Specimen has been received and testing has been initiated. Acid Fast CultureLab Director: Arthur Snyder PhD, Phone: [phone] Acid Fast Culture Specimen has been received and testing has been initiated. Performing Lab:see note - [facility] LB SEE REPORT - Spinning Lathe Operator Id information not found for OBX-specific movie producer legend Fungus Stain Reviewed date:06/26/2025 02:19:36 PM Interpretation: Performing Lab: Notes/Report: 1ST LEFT METATASAL CX [facility] ,Fungus StainSee Below For Report Fungus Stain Fungus StainKOH/Calcofluor preparation: no fungus observed. Fungus Stain Performing Lab:[facility] LBFungus (Mycology) Culture Reviewed date:06/21/2025 06:12:36 PM Interpretation: Performing Lab: Notes/Report: 1ST LEFT METATASAL CX [facility] ,Fungus (Mycology) CultureSee Below For Report Fungus (Mycology) Culture Fungus (Mycology) CultureCulture Report: Fungus (Mycology) Culture Fungus (Mycology) CultureThe specimen submitted for fungus culture has been received and Fungus (Mycology) Culture Fungus (Mycology) Cultureculture has been initiated. Fungus (Mycology) Culture Fungus (Mycology) CulturePerformed at: [facility] Fungus (Mycology) Culture Fungus (Mycology) [address] [place], [place] [id number] Fungus (Mycology) Culture Fungus (Mycology) CultureLab Director: Arthur Snyder PhD, Phone: [phone] Fungus (Mycology) Culture Performing Lab:see note - [facility] LB SEE REPORT - Spinning Lathe Operator Id information not found for OBX-specific movie producer legend Testosterone Reviewed date:04/25/2025 12:59:24 PM Interpretation: Performing Lab: Notes/Report: [facility] ,Testosterone>5703632-344 ng/dL Adult male reference interval is based on a population of healthy nonobese males (BMI <30) between 19 and 39 years old. adia Ch.al. JCEM 2017,102;6237-2631. PMID: 13714326. Performed at: - [address] [id number] B2B Sales Professional: Arthur Snyder PhD, Phone: [phone] Performing Lab:see note - [facility] LBCT ANKLE RT WO CON Reviewed date:04/11/2025 11:11:49 PM Interpretation: Performing Lab: Notes/Report: Source Facility: [place] [address] CT Scan Report Signed Patient: MATTY GARCES MR#: [id number] : 1970 Acct:[id number] Age/Sex: 54 / M ADM Date: 04/10/25 Loc: CT Attending Dr: Venus Mendez M.D. Ordering Physician: Venus Mendez M.D. Date of Service: 04/10/25 Procedure(s): CT ankle RT wo con Accession Number(s): [id number] cc: Venus Mendez M.D. [place] [address] Patient Name: MATTY GARCES MRN: [id number]:[id number] date: 1970 Sex: M Assigned Patient Location: CT Current Patient Location: CT Accession/Order Number: [id number] Exam Date: 04/10/2025 15:45 Report Date: 04/10/2025 [...] Jr., D.O. 04/10/2025 3:56 PM Dictation Location: [place] [address] Electronically authenticated by: [id number] Y Date: 04/10/2025 15:56 Dictated By: Bora Gomez M.D. Signed By: 04/10/25 1559 DD/ 1556 TD/TT: Roofing Laborer:XR foot LT min 3V Reviewed date:03/07/2025 09:35:46 PM Interpretation: Performing Lab: Notes/Report: Source Facility: [place] [address] XRay Report Signed Patient: MATTY GARCES MR#: [id number] : 1970 Acct:[id number] Age/Sex: 54 / M ADM Date: 03/05/25 Loc: MS 221-[address]: Venus Mendez M.D. Ordering Physician: Clarisa Vallejo D.P.M. Date of Service: 03/06/25 Procedure(s): XR foot LT min 3V Accession Number(s): [id number] cc: Clarisa Vallejo D.P.M.; Venus Mendez M.D. [place] [address] Patient Name: MATTY GARCES MRN: [id number] date: 1970 Sex: M Assigned Patient Location: MS Current Patient Location: MS Accession/Order Number: [id number] Exam Date: 03/06/2025 13:16 Report Date: 03/06/2025 [...] Irving M.D. 03/06/2025 1:19 PM Dictation Location: [place] [address] Electronically authenticated by: [id number] Y Date: 03/06/2025 13:19 Dictated By: Francis Irving M.D. Signed By: 03/06/25 1321 DD/ 1319 TD/TT: Roofing Laborer:XR ankle RT min 3V Reviewed date:03/05/2025 08:19:57 PM Interpretation: Performing Lab: Notes/Report: Source Facility: [place] [address] [place] [address] XRay Report Signed Patient: MATTY GARCES MR#: [id number] : 1970 Acct:[id number] Age/Sex: 54 / M ADM Date: 03/05/25 Loc: ER Attending Dr: Ordering Physician: Jess Ryan Date of Service: 03/05/25 Procedure(s): XR ankle RT min 3V Accession Number(s): [id number] cc: Jess Ryan; Venus Mendez M.D. [place] [id number] Patient Name: MATTY GARCES MRN: [id number] date: 1970 Sex: M Assigned Patient Location: ER Current Patient Location: ER Accession/Order Number: [id number] Exam Date: 03/05/2025 18:27 Report Date: 03/05/2025 [...] Irving M.D. 03/05/2025 6:33 PM Dictation Location: [place] [address] Electronically authenticated by: [id number] Y Date: 03/05/2025 18:33 Dictated By: Francis Irving M.D. Signed By: 03/05/251835 DD/ 32 TD/TT: Roofing Laborer:BLOOD CULTURE ID PANEL Reviewed date:03/07/2025 09:35:46 PM Interpretation: Performing Lab: Notes/Report: [facility] ,CTX-MNOT APPLICABLENOT DETECTEIMPNOT APPLICABLENOT DETECTEKPCNOT APPLICABLENOT DETECTEmcr-1NOT APPLICABLENOT DETECTEmecA/CNOT APPLICABLENOT DETECTEmecA/C and MREJ (MRSA)NOT APPLICABLENOT DETECTENDMNOT APPLICABLENOT IEGDCDVSCI-98-tlhzQLU APPLICABLENOT DETECTEvanA/BNOT APPLICABLENOT DETECTEVIMNOT APPLICABLENOT DETECTE SourceBloodEnterococcus faecalisNOT DETECTEDNOT DETECTEEnterococcus faeciumNOT DETECTEDNOT DETECTEListeria monocytogenesNOT DETECTEDNOT DETECTEStaphylococcus spp.NOT DETECTEDNOT DETECTEStaphylococcus aureusNOT DETECTEDNOT DETECTE Staphylococcus epidermidisNOT DETECTEDNOT DETECTEStaphylococcus lugdunensisNOT DETECTEDNOT DETECTEStreptococcus spp.NOT DETECTEDNOT DETECTEStreptococcus agalactiaeNOT DETECTEDNOT DETECTEStreptococcus pneumoniaeNOT DETECTEDNOT DETECTE Streptococcus pyogenesNOT DETECTEDNOT DETECTEA. calcoaceticus-baumannii CpxNOT DETECTEDNOT DETECTEBacteroides fragilisNOT DETECTEDNOT DETECTEEnterobacterales NOT DETECTEDNOT DETECTEEnterobacter cloacae complexNOT DETECTEDNOT DETECTE Escherichia coliNOT DETECTEDNOT DETECTEKlebsiella aerogenesNOT DETECTEDNOT DETECTEKlebsiella oxytocaNOT DETECTEDNOT DETECTEKlebsiella pneumoniae groupNOT DETECTEDNOT DETECTEProteus spp.NOT DETECTEDNOT DETECTESalmonella spp.NOT DETECTEDNOT DETECTESerratia marcescensNOT DETECTEDNOT DETECTEHaemophilus influenzaeNOT DETECTEDNOT DETECTENeisseria meningitidisNOT DETECTEDNOT DETECTE Pseudomonas aeruginosaNOT DETECTEDNOT DETECTEStenotrophomonas maltophiliaNOT DETECTEDNOT DETECTECandida albicansNOT DETECTEDNOT DETECTECandida aurisNOT DETECTEDNOT DETECTECandida glabrataNOT DETECTEDNOT DETECTECandida kruseiNOT DETECTEDNOT DETECTECandida parapsilosisNOT DETECTEDNOT DETECTECandida tropicalis NOT DETECTEDNOT DETECTECryptococcus neoformans/gattiiNOT DETECTEDNOT DETECTE Performing Lab:see noteML - [facility] LBUS venous doppler LE BI Reviewed date:10/08/2024 12:37:32 PM Interpretation: Performing Lab: Notes/Report: Source Facility: [facility]-[address] [place] [address] [address] [address] Ultrasound Report Signed Patient: MATTY GARCES MR#: [id number] : 1970 Acct:[id number] Age/Sex: 54 / M ADM Date: 10/07/24 Loc: ER Attending Dr: Ordering Physician: Veronique Garrett Date of Service: 10/07/24 Procedure(s): US venous doppler LE RT Accession Number(s): [id number] cc: Venus Mendez M.D.; Veronique Garrett [place] [address] Patient Name: MATTY GARCES MRN: [id number] date: 1970 Sex: M Assigned Patient Location: ER Current Patient Location: ER Accession/Order Number: [id number] Exam Date: 10/07/2024 15:34 Report Date: 10/07/2024 16:42 At the request of: VERONIQUE GARRETT Procedure: US venous doppler LE RT [...] without DVT. No change. Electronically authenticated by: CARIE SAAB Date: 10/07/2024 16:42 Dictated By: Carie Saab M.D. Signed By: 10/07/241643 DD/ 41 TD/TT: Roofing Laborer:Venous Blood Gas Reviewed date:10/08/2024 12:37:32 PM Interpretation: Performing Lab: Notes/Report: [facility] ,pH VBG7.4447.330-7.780TQA4 VBG51.740.0-52.0 mmHgPerforming Lab:see noteML - [facility] LBErythrocyte Sedimentation Rate Reviewed date:10/08/2024 12:37:32 PM Interpretation: Performing Lab: Notes/Report: [facility] ,Erythrocyte Sedimentation Rate69<=20 mm/hrPerforming Lab:see note - [facility] LBBlood Culture 2 Reviewed date:10/14/2024 04:42:10 PM Interpretation: Performing Lab: Notes/Report: LEFT AC [facility] ,Blood Culture 2See Below For Report Blood Culture 2 NG5D NO GROWTH AT 5 DAYS. Performing [facility] LBBlood Culture 1 Reviewed date:10/14/2024 04:42:10 PM Interpretation: Performing Lab: Notes/Report: RIGHT [facility] ,Blood Culture 1See Below For Report Blood Culture 1 NG5D NO GROWTH AT 5 DAYS. Performing Lab:see [facility] LBPROF 14(COMP METB) Reviewed date:10/08/2024 12:37:32 PM Interpretation: Performing Lab: Notes/Report: [facility] ,Osenmc613319-596 mmol/LPotassium3.93.5-5.1 mmol/OCrhraktf23320-704 mmol/LCarbon Esmlpll37.221.0-32.0 mmol/LAnion Gap8.5Dszbmdq6359-144 mg/dLBlood Urea Nitrogen 12.07.0-18.0 mg/dLCreatinine1.290.70-1.30 mg/dLEstimated GFR ( Elizabeth>60 >=60 mL/min/1.73m 2Estimated GFR (Non- Ame58>=60 mL/min/1.73m 2BUN Creatinine Ratio9.9Gnylugi6.78.5-10.1 mg/dLBilirubin Total0.60.2-1.0 mg/dL Aspartate Amino Fpnggdvcozk7097-78 U/LAlanine Wrzqdntdvjwgunqe9076-72 U/L Alkaline Wkalrivfusf94973-242 U/LTotal Protein7.66.4-8.2 g/dLAlbumin Level3.3 3.4-5.0 g/dLGlobulin4.3Albumin Globulin Ratio0.8Performing Lab:[facility] LBLACTATE or LACTIC ACID Reviewed date:10/08/2024 12:37:32 PM Interpretation: Performing Lab: Notes/Report: [facility] ,Lactate/Lactic Acid2.00.4-2.0 mmol/LPerforming Lab:see noteML - [facility] LBCRP Reviewed date:10/08/2024 12:37:32 PM Interpretation: Performing Lab: Notes/Report: [facility] ,C Reactive Protein2.61<=0.50 mg/dLPerforming Lab:see noteML - [facility] LBCBC AUTO DIFF Reviewed date:10/08/2024 12:37:32 PM Interpretation: Performing Lab: Notes/Report: [facility] ,White Blood Count8.84.0-11.0 10 3/uLRed Blood Count4.744.70-6.10 10 6/uL Ppavvpfhaa02.714.0-18.0 g/xSLmztejybox93.742.0-54.0 %Mean Corpuscular Bhwzqa41.0 80.0-94.0 fLMean Corpuscular Qxiibqyfkm03.825.9-34.0 pgMean Corpuscular HGB Conc 30.529.9-35.2 g/dLRed Cell Distribution Width15.711.0-15.0 %Platelet Vqrnh933 150-450 10 3/uLMean Platelet Volume9.19.5-13.5 fLNeutrophils Percent Auto80.6 43.0-75.0 %Lymphocytes Percent Auto8.920.5-60.0 %Monocytes Percent Auto6.61.7- 12.0 %Eosinophils Percent Auto1.70.9-7.0 %Basophils Percent Auto0.80.2-2.0 % Immature Granulocytes Pct Auto1.40.0-0.5 %Neutrophils Absolute Auto7.11.4-6.5 10 3/uLLymphocytes Absolute Auto0.81.2-3.8 10 3/uLMonocytes Absolute Auto0.60.3-0.8 10 3/uLEosinophils Absolute Auto0.20.0-0.7 10 3/uLBasophils Absolute Auto0.10.0- 0.1 10 3/uLImmature Granulocytes Abs Auto0.120.00-0.03 10 3/uLPerforming Lab:see noteML - [facility] LBUS venous doppler LE BI Reviewed date:10/08/2024 12:37:32 PM Interpretation: Performing Lab: Notes/Report: Source Facility: [place] [address] Ultrasound Report Signed Patient: MATTY GARCES MR#: [id number] : 1970 Acct:[id number] Age/Sex: 54 / M ADM Date: 10/05/24 Loc: ER Attending Dr: Ordering Physician: Melissa Duggan Date of Service: 10/05/24 Procedure(s): US venous doppler LE RT Accession Number(s): [id number] cc: Venus Mnedez M.D.; Melissa Duggan [place] [address] Patient Name: MATTY GARCES MRN: [id number] date: 1970 Sex: M Assigned Patient Location: ER Current Patient Location: ED.MAIN Accession/Order Number: [id number] Exam Date: 10/05/2024 19:00 Report Date: 10/05/2024 [...] M.A. Signed By: 10/05/242017 DD/ 15 TD/TT: Roofing Laborer:XR tibia fibula RT 2V Reviewed date:09/24/2024 10:37:52 AM Interpretation: Performing Lab: Notes/Report: Source Facility: [place] [address] XRay Report Signed Patient: MATTY GARCES MR#: [id number] : 1970 Acct:[id number] Age/Sex: 53 / M ADM Date: 09/23/24 Loc: ER Attending Dr: Ordering Physician: Kaylin Glass Date of Service: 09/23/24 Procedure(s): XR tibia fibula RT 2V Accession Number(s): [id number] cc: Venus Mendez M.D.; Kaylin Glass [place] [address] Patient Name: MATTY GARCES MRN: [id number] date: 1970 Sex: M Assigned Patient Location: ER Current Patient Location: ED.MAIN Accession/Order Number: [id number] Exam Date: 09/23/2024 06:48 Report Date: 09/23/2024 07:22 At the request of: KAYLIN GLASS Procedure: XR tibia fibula RT 2V [...] M.D. Signed By: 09/23/2425 DD/ 1 TD/TT: Roofing Laborer:XR tibia fibula RT 2V Reviewed date:09/24/2024 10:37:52 AM Interpretation: Performing Lab: Notes/Report: Source Facility: [place] [address] [address] [address] XRay Report Signed Patient: MATTY GARCES MR#: [id number] : 1970 Acct:[id number] Age/Sex: 53 / M ADM Date: 09/23/24 Loc: ER Attending Dr: Ordering Physician: Kaylin Glass Date of Service: 09/23/24 Procedure(s): XR tibia fibula RT 2V Accession Number(s): [id number] cc: Venus Mendez M.D.; Kaylin Glass [place] [address] Patient Name: MATTY GARCES MRN: [id number] date: 1970 Sex: M Assigned Patient Location: ER Current Patient Location: ER Accession/Order Number: [id number] Exam Date: 09/23/2024 05:40 Report Date: 09/23/2024 06:35 At the request of: KAYLIN GLASS Procedure: XR tibia fibula RT 2V [...] knee and right ankle. Electronically authenticated by: ALTAF DAVIS Date: 09/23/2024 06:35 Dictated By: Altaf Davis M.D. 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 1V Reviewed date:09/24/2024 10:37:52 AM Interpretation: Performing Lab: Notes/Report: Source Facility: [place] [address] [place] [address] XRay Report Signed Patient: MATTY GARCES MR#: [id number] : 1970 Acct:[id number] Age/Sex: 53 / M ADM Date: 09/23/24 Loc: ER Attending Dr: Ordering Physician: Kaylin Glass Date of Service: 09/23/24 Procedure(s): XR chest 1V Accession Number(s): [id number] cc: Venus Mendez M.D.; Kaylin Glass [place] [address] Patient Name: MATTY GARCES MRN: [id number] date: 1970 Sex: M Assigned Patient Location: ER Current Patient Location: ER Accession/Order Number: [id number] Exam Date: 09/23/2024 05:40 Report Date: 09/23/2024 06:35 At the request of: KAYLIN GLASS Procedure: XR chest 1V EXAMINATION: XR [...] No acute cardiopulmonary process. Electronically authenticated by: ALTAF DAVIS Date: 09/23/2024 06:35 Dictated By: Altaf Davis M.D. 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 Signed By: 09/25/24 0809 DD/ 0551 TD/TT: Roofing Laborer:XR ankle RT min 3V Reviewed date:09/24/2024 10:37:52 AM Interpretation: Performing Lab: Notes/Report: Source Facility: [place] [address] XRay Report Signed Patient: MATTY GRACES MR#: [id number] : 1970 Acct:[id number] Age/Sex: 53 / M ADM Date: 09/23/24 Loc: ER Attending Dr: Ordering Physician: Kaylin Glass Date of Service: 09/23/24 Procedure(s): XR ankle RT min 3V Accession Number(s): [id number] cc: Venus Mendez M.D.; Kaylin Glass [place] [address] Patient Name: MATTY GARCES MRN: [facility]:[id number] date: 1970 Sex: M Assigned Patient Location: ER Current Patient Location: ER Accession/Order Number: [id number] Exam Date: 09/23/2024 05:40 Report Date: 09/23/2024 06:35 At the request of: KAYLIN GLASS Procedure: XR ankle RT min 3V [...] knee and right ankle. Electronically authenticated by: ALTAF DAVIS Date: 09/23/2024 06:35 Dictated By: Altaf Davis M.D. Signed By: 09/23/2437 DD/ TD/TT: Roofing Laborer:XR KNEE RT 3V Reviewed date:09/24/2024 10:37:52 AM Interpretation: Performing Lab: Notes/Report: Source Facility: [facility]-[address] [place] [address] [place] [address] XRay Report Signed Patient: MATTY GARCES MR#: [id number] : 1970 Acct:[id number] Age/Sex: 53 / M ADM Date: 09/23/24 Loc: ER Attending Dr: Ordering Physician: Kaylin Glass Date of Service: 09/23/24 Procedure(s): XR knee RT 3V Accession Number(s): [id number] cc: Venus Mendez M.D.; Kaylin Glass [place] [address] Patient Name: MATTY GARCES MRN: [id number] date: 1970 Sex: M Assigned Patient Location: ER Current Patient Location: ER Accession/Order Number: [id number] Exam Date: 09/23/2024 05:40 Report Date: 09/23/2024 06:35 At the request of: KAYLIN GLASS Procedure: XR knee RT 3V PROCEDURE: [...] knee and right ankle. Electronically authenticated by: ALTAF DAVIS Date: 09/23/2024 06:35 Dictated By: Altaf Davis M.D. Signed By: 09/23/24 0637 DD/ 0635 TD/TT: Roofing Laborer:Troponin I High Sensitivity Reviewed date:09/24/2024 10:37:52 AM Interpretation: Performing Lab: Notes/Report: [facility] ,Troponin I High Zmeyrisotpx26.04.0-76.1 pg/mL CUT-OFF POINTS HAVE BEEN ESTABLISHED BASED ON THE FOURTH UNIVERSAL DEFINITION OF MYOCARDIAL INFARCTION. THE UPPER REFERENCE LIMIT (URL) OF TROPONIN, DEFINED THE 99TH PERCENTILE OF cTnI DISTRIBUTION IN A REFERENCE POPULATION, HAS BEEN CONFIRMED THE DECISION THRESHOLD FOR NM DIAGNOSIS. 99TH PERCENTILE = 76.2 PG/ML NOTE: HIGH-SENSITIVITY TROPONIN ASSAY IS NOT INTENDED TO BE USED IN ISOLATION BUT SHOULD BE INTERPRETED IN CONJUNCTION WITH OTHER DIAGNOSTIC AND CLINICAL INFORMATION. Performing Lab:see noteML - [facility] LBManual Differential Reviewed date:09/24/2024 10:37:52 AM Interpretation: Performing Lab: Notes/Report: [facility] ,Segmented Neutrophils % Qhigpi56.043.0-75.0Lymphocytes Percent Ancnnx39.020.5- 60.0 %Monocytes Percent Manual9.01.7-12.0 %Eosinophils Percent Manual3.00.9-7.0 %Basophils Percent Manual1.00.2-2.0 %Segmented Neut Absolute Manual5.391.4-6.5 10 3/uLLymphocytes Absolute Manual0.781.20-3.80 10 3/uLMonocytes Absolute Manual 0.630.30-0.80 10 3/uLEosinophils Absolute Manual0.210.00-0.70 10 3/uLBasophils Abs Manual0.070.00-0.10 10 3/uLPerforming Lab:see noteML - [facility] LBProthrombin Time INR Reviewed date:09/24/2024 10:37:52 AM Interpretation: Performing Lab: Notes/Report: [facility] ,Prothrombin Time12.99.0-11.6 secINR1.24 DESIRED INR: 2.0-3.0 CONDITIONS NOT LISTED BELOW 2.5-3.5 FOR PROSTHETIC HEART VALVE REPLACEMENT 2.5-3.5 RECURRENT THROMBOSIS Performing Lab:see noteML - [facility] LBPTT Reviewed date:09/24/2024 10:37:52 AM Interpretation: Performing Lab: Notes/Report: [facility] ,Partial Thromboplastin Time28.722.3-36.2 secPerforming Lab:see noteML - [facility] LBPROF CHEM 8 (BAS METB) Reviewed date:09/24/2024 10:37:52 AM Interpretation: Performing Lab: Notes/Report: [facility] ,Zrtspm031381-020 mmol/LPotassium3.83.5-5.1 mmol/VZavgxcal66281-783 mmol/LCarbon Jdpgcvn94.021.0-32.0 mmol/LAnion Gap10.5Vsihunc16212-992 mg/dLBlood Urea Nitrogen5.07.0-18.0 mg/dLCreatinine1.160.70-1.30 mg/dLEstimated GFR ( Elizabeth>60>=60 mL/min/1.73m 2Estimated GFR (Non- Gwen>60>=60 mL/min/1.73m 2BUN Creatinine Ratio4.6Gjexuov9.08.5-10.1 mg/dLPerforming Lab:see noteML - [facility] LBCBC AUTO DIFF Reviewed date:09/24/2024 10:37:52 AM Interpretation: Performing Lab: Notes/Report: [facility] ,White Blood Count7.14.0-11.0 10 3/uLRed Blood Count5.404.70-6.10 10 6/uL Ozldutakez17.514.0-18.0 g/sXYvykgxaamt44.242.0-54.0 %Mean Corpuscular Cwvoqi65.4 80.0-94.0 fLMean Corpuscular Agllfxnors81.925.9-34.0 pgMean Corpuscular HGB Conc 30.729.9-35.2 g/dLRed Cell Distribution Width15.611.0-15.0 %Platelet Mwpem076 150-450 10 3/uLMean Platelet Volume9.69.5-13.5 fLPerforming Lab:see noteML - [facility] LBVANCOMYCIN TROUGH Reviewed date:09/24/2024 10:37:52 AM Interpretation: Performing Lab: Notes/Report: [facility] ,Vancomycin Kquige89.45.0-20.0 ug/mLPerforming Lab:see noteML - [facility] LBPROF CHEM 8 (BAS METB) Reviewed date:09/24/2024 10:37:52 AM Interpretation: Performing Lab: Notes/Report: [facility] ,Xpfclc611022-846 mmol/LPotassium3.73.5-5.1 mmol/CBqqyelvb03841-107 mmol/LCarbon Kbxcuos85.121.0-32.0 mmol/LAnion Gap9.6Lzkbuoz31819-260 mg/dLBlood Urea Nitrogen 7.07.0-18.0 mg/dLCreatinine1.010.70-1.30 mg/dLEstimated GFR ( Elizabeth>60 >=60 mL/min/1.73m 2Estimated GFR (Non- Gwen>60>=60 mL/min/1.73m 2BUN Creatinine Ratio6.8Irjpvsy3.98.5-10.1 mg/dLPerforming Lab:see noteML - [facility] LBCRP Reviewed date:09/24/2024 10:37:52 AM Interpretation: Performing Lab: Notes/Report: [facility] ,C Reactive Protein0.89<=0.50 mg/dLPerforming Lab:see noteML - [facility] LBCBC AUTO DIFF Reviewed date:09/24/2024 10:37:52 AM Interpretation: Performing Lab: Notes/Report: [facility] ,White Blood Count6.44.0-11.0 10 3/uLRed Blood Count5.524.70-6.10 10 6/uL Vrepvuxjlb30.614.0-18.0 g/oPVrsezmjgub47.842.0-54.0 %Mean Corpuscular Qxasyq87.6 80.0-94.0 fLMean Corpuscular Redhtebykc45.425.9-34.0 pgMean Corpuscular HGB Conc 30.529.9-35.2 g/dLRed Cell Distribution Width15.211.0-15.0 %Platelet Pudnp905 150-450 10 3/uLMean Platelet Volume9.89.5-13.5 fLNeutrophils Percent Auto72.0 43.0-75.0 %Lymphocytes Percent Auto13.220.5-60.0 %Monocytes Percent Auto10.71.7- 12.0 %Eosinophils Percent Auto1.90.9-7.0 %Basophils Percent Auto0.80.2-2.0 % Immature Granulocytes Pct Auto1.40.0-0.5 %Neutrophils Absolute Auto4.61.4-6.5 10 3/uLLymphocytes Absolute Auto0.81.2-3.8 10 3/uLMonocytes Absolute Auto0.70.3-0.8 10 3/uLEosinophils Absolute Auto0.10.0-0.7 10 3/uLBasophils Absolute Auto0.10.0- 0.1 10 3/uLImmature Granulocytes Abs Auto0.090.00-0.03 10 3/uLPerforming Lab:see note - [facility] LBBox Test Reviewed date:09/24/2024 05:28:36 PM Interpretation: Performing Lab: Notes/Report: WOUND CULTURE L GREAT TOE [facility] ,BOX Test Sent OutWOUND CULTUREBOX Test Reference LabFIRELANDSBOX Test Date Sent 09/21/24BOX Test ResultSEE SCANNED REPORTPerforming Lab:see note - [facility] LBPROF CHEM 8 (BAS METB) Reviewed date:09/21/2024 01:02:57 PM Interpretation: Performing Lab: Notes/Report: [facility] ,Dfkzxo568716-083 mmol/LPotassium3.63.5-5.1 mmol/KJsvyqhuk70886-929 mmol/LCarbon Vqimslp11.821.0-32.0 mmol/LAnion Gap5.4Xfbulpt51861-023 mg/dLBlood Urea Nitrogen 6.07.0-18.0 mg/dLCreatinine1.210.70-1.30 mg/dLEstimated GFR ( Elizabeth>60 >=60 mL/min/1.73m 2Estimated GFR (Non- Gwen>60>=60 mL/min/1.73m 2BUN Creatinine Ratio5.8Mpckbji1.88.5-10.1 mg/dLPerforming Lab:see note - [facility] LBCRP Reviewed date:09/21/2024 01:02:57 PM Interpretation: Performing Lab: Notes/Report: [facility] ,C Reactive Protein1.65<=0.50 mg/dLPerforming Lab:see note - [facility] LBCBC AUTO DIFF Reviewed date:09/21/2024 01:02:57 PM Interpretation: Performing Lab: Notes/Report: [facility] ,White Blood Count7.54.0-11.0 10 3/uLRed Blood Count5.234.70-6.10 10 6/uL Bteemegcix40.214.0-18.0 g/pKPbvvbisips03.042.0-54.0 %Mean Corpuscular Iuldeh33.0 80.0-94.0 fLMean Corpuscular Kudqqmtszx95.225.9-34.0 pgMean Corpuscular HGB Conc 30.929.9-35.2 g/dLRed Cell Distribution Width15.311.0-15.0 %Platelet Kvosn385 150-450 10 3/uLMean Platelet Gdhxre04.09.5-13.5 fLNeutrophils Percent Auto76.9 43.0-75.0 %Lymphocytes Percent Auto9.620.5-60.0 %Monocytes Percent Auto10.31.7- 12.0 %Eosinophils Percent Auto1.50.9-7.0 %Basophils Percent Auto0.50.2-2.0 % Immature Granulocytes Pct Auto1.20.0-0.5 %Neutrophils Absolute Auto5.81.4-6.5 10 3/uLLymphocytes Absolute Auto0.71.2-3.8 10 3/uLMonocytes Absolute Auto0.80.3-0.8 10 3/uLEosinophils Absolute Auto0.10.0-0.7 10 3/uLBasophils Absolute Auto0.00.0- 0.1 10 3/uLImmature Granulocytes Abs Auto0.090.00-0.03 10 3/uLPerforming Lab:see noteML - [facility] LBBLOOD GASES BTY Reviewed date:09/21/2024 08:35:02 AM Interpretation: Performing Lab: Notes/Report: [facility] ,pH ABG7.4197.350-7.450ABG XOI060.635.0-45.0 mmHgRESULTS CALLED TO GLENDY JAMES RN at [id number] ABG71.380.0-100.0 mmHgHCO3 PLS6941.0-26.0 mmol/LBase Excess ABG11.5-2.0-2.0 mmol/LOxygen Saturation ABG95.4Allen TestPOSITIVEPOSITIVE O2 ModeNASAL CANNULALiters per Jzcffe1Fignendl SiteRRPerforming Lab:see noteML - [facility] LBXR ankle LT min 3V Reviewed date:09/21/2024 09:07:03 PM Interpretation: Performing Lab: Notes/Report: Source Facility: [place] [address] [place] [address] XRay Report Signed Patient: MATTY GARCES MR#: [id number] : 1970 Acct:[id number] Age/Sex: 53 / M ADM Date: 09/19/24 Loc: ICU 270-[address]: Venus Mendez M.D. Ordering Physician: Clarisa Vallejo D.P.M. Date of Service: 09/20/24 Procedure(s): XR ankle LT min 3V Accession Number(s): [id number] cc: Clarisa Vallejo D.P.M.; Venus Mendez M.D. [place] [address] Patient Name: MATTY GARCES MRN: [id number] date: 1970 Sex: M Assigned Patient Location: ICU Current Patient Location: ICU Accession/Order Number: [id number] Exam Date: 09/20/2024 20:45 Report Date: 09/20/2024 [...] M.D. Signed By: 09/20/242144 DD/ 42 TD/TT: Roofing Laborer:XR foot LT min 3V Reviewed date:09/21/2024 09:07:03 PM Interpretation: Performing Lab: Notes/Report: Source Facility: [place] [address] XRay Report Signed Patient: MATTY GARCES MR#: [id number] : 1970 Acct:[id number] Age/Sex: 53 / M ADM Date: 09/19/24 Loc: ICU 270-[address]: Venus Mendez M.D. Ordering Physician: Clarisa Vallejo D.P.M. Date of Service: 09/20/24 Procedure(s): XR foot LT min 3V Accession Number(s): [id number] cc: Clarisa Vallejo D.P.M.; Venus Mendez M.D. [place] [address] Patient Name: MATTY GARCES MRN: [id number] date: 1970 Sex: M Assigned Patient Location: ICU Current Patient Location: ICU Accession/Order Number: [id number] Exam Date: 09/20/2024 20:45 Report Date: 09/20/2024 [...] M.D. Signed By: 09/20/242144 DD/ 42 TD/TT: Roofing Laborer:CT angio chest Reviewed date:09/20/2024 07:18:09 PM Interpretation: Performing Lab: Notes/Report: Source Facility: [facility]-[address] [place] [address] [place] [address] CT Scan Report Signed Patient: MATTY GARCES MR#: [id number] : 1970 Acct:[id number] Age/Sex: 53 / M ADM Date: 09/19/24 Loc: ICU 270-[address]: Venus Mendez M.D. Ordering Physician: Venus Mendez M.D. Date of Service: 09/20/24 Procedure(s): CT angio chest Accession Number(s): [id number] cc: Venus Mendez M.D. [place] [address] Patient Name: MATTY GARCES MRN: [facility]:[id number] date: 1970 Sex: M Assigned Patient Location: ICU Current Patient Location: ICU Accession/Order Number: [id number] Exam Date: 09/20/2024 13:15 Report Date: 09/20/2024 [...] Signed By: 09/20/24 1418 DD/ 1415 TD/TT: Roofing Laborer:PROF Deutsch(COMP METB) Reviewed date:09/20/2024 07:18:09 PM Interpretation: Performing Lab: Notes/Report: [facility] ,Wngnsf848929-252 mmol/LPotassium4.03.5-5.1 mmol/CJyctchuh98198-913 mmol/LCarbon Wlubskz85.521.0-32.0 mmol/LAnion Gap9.1Qqinkdi8323-588 mg/dLBlood Urea Nitrogen 11.07.0-18.0 mg/dLCreatinine1.000.70-1.30 mg/dLEstimated GFR ( Elizabeth>60 >=60 mL/min/1.73m 2Estimated GFR (Non- Gwen>60>=60 mL/min/1.73m 2BUN Creatinine Ratio11.2Vlgvrdq6.78.5-10.1 mg/dLBilirubin Total0.60.2-1.0 mg/dL Aspartate Amino Mtbqnjvtkgr0520-44 U/LAlanine Qswqytcrkymjmrkt6851-39 U/L Alkaline Vxrepvjlcip46435-333 U/LTotal Protein7.06.4-8.2 g/dLAlbumin Level3.1 3.4-5.0 g/dLGlobulin3.9Albumin Globulin Ratio0.8Performing Lab:see noteML - [facility] LBCBC AUTO DIFF Reviewed date:09/20/2024 07:18:09 PM Interpretation: Performing Lab: Notes/Report: [facility] ,White Blood Count6.64.0-11.0 10 3/uLRed Blood Count5.194.70-6.10 10 6/uL Ejpszvpecp82.814.0-18.0 g/eDOdppncezsz15.142.0-54.0 %Mean Corpuscular Zjhtqq06.9 80.0-94.0 fLMean Corpuscular Pdyzinivsc96.625.9-34.0 pgMean Corpuscular HGB Conc 30.629.9-35.2 g/dLRed Cell Distribution Width15.211.0-15.0 %Platelet Bsndn754 150-450 10 3/uLMean Platelet Bkzacv85.29.5-13.5 fLNeutrophils Percent Auto74.1 43.0-75.0 %Lymphocytes Percent Auto10.420.5-60.0 %Monocytes Percent Auto11.41.7- 12.0 %Eosinophils Percent Auto2.10.9-7.0 %Basophils Percent Auto0.90.2-2.0 % Immature Granulocytes Pct Auto1.10.0-0.5 %Neutrophils Absolute Auto4.91.4-6.5 10 3/uLLymphocytes Absolute Auto0.71.2-3.8 10 3/uLMonocytes Absolute Auto0.80.3-0.8 10 3/uLEosinophils Absolute Auto0.10.0-0.7 10 3/uLBasophils Absolute Auto0.10.0- 0.1 10 3/uLImmature Granulocytes Abs Auto0.070.00-0.03 10 3/uLPerforming Lab:see noteML - [facility] LBVenous Blood Gas Reviewed date:09/19/2024 07:12:29 PM Interpretation: Performing Lab: Notes/Report: [facility] ,pH VBG7.4767.330-7.143HNS4 VBG39.340.0-52.0 mmHgPerforming Lab:see noteML - [facility] LBManual Differential Reviewed date:09/19/2024 07:12:29 PM Interpretation: Performing Lab: Notes/Report: [facility] ,Segmented Neutrophils % Deasxr41.043.0-75.0Lymphocytes Percent Manual6.020.5- 60.0 %Monocytes Percent Manual4.01.7-12.0 %Eosinophils Percent Manual3.00.9-7.0 %Basophils Percent Manual1.00.2-2.0 %Atypical Lymphocytes % Manual9.0Segmented Neut Absolute Manual5.851.4-6.5 10 3/uLLymphocytes Absolute Manual0.451.20-3.80 10 3/uLMonocytes Absolute Manual0.300.30-0.80 10 3/uLEosinophils Absolute Manual 0.220.00-0.70 10 3/uLBasophils Abs Manual0.070.00-0.10 10 3/uLAtypical Lymphocytes Abs Man0.68Performing Lab:see noteML - [facility] LB Erythrocyte Sedimentation Rate Reviewed date:09/19/2024 07:12:29 PM Interpretation: Performing Lab: Notes/Report: [facility] ,Erythrocyte Sedimentation Rate51<=20 mm/hrPerforming Lab:see noteML - [facility] LBPROF 14(COMP METB) Reviewed date:09/20/2024 07:18:09 PM Interpretation: Performing Lab: Notes/Report: [facility] ,Hhuftd310797-705 mmol/LPotassium3.73.5-5.1 mmol/CEslxzglp64351-064 mmol/LCarbon Jfhrkkv46.621.0-32.0 mmol/LAnion Gap10.6Hqsdbqw90241-282 mg/dLBlood Urea Aixdhhdp23.07.0-18.0 mg/dLCreatinine1.040.70-1.30 mg/dLEstimated GFR ( Elizabeth>60>=60 mL/min/1.73m 2Estimated GFR (Non- Gwen>60>=60 mL/min/1.73m 2BUN Creatinine Ratio11.8Ercpiht3.28.5-10.1 mg/dLBilirubin Total0.50.2-1.0 mg/dL Aspartate Amino Rxqcbcrbzpk5005-28 U/LAlanine Zczqasaqcgyewfih1085-64 U/L Alkaline Yethvtuktxy91749-065 U/LTotal Protein7.46.4-8.2 g/dLAlbumin Level3.3 3.4-5.0 g/dLGlobulin4.1Albumin Globulin Ratio0.8Performing Lab:see noteML - [facility] LBLACTATE or LACTIC ACID Reviewed date:09/20/2024 07:18:09 PM Interpretation: Performing Lab: Notes/Report: [facility] ,Lactate/Lactic Acid1.40.4-2.0 mmol/LPerforming Lab:see noteML - [facility] LBCRP Reviewed date:09/20/2024 07:18:09 PM Interpretation: Performing Lab: Notes/Report: [facility] ,C Reactive Protein2.51<=0.50 mg/dLPerforming Lab:see noteML - [facility] LBCBC AUTO DIFF Reviewed date:09/19/2024 07:12:29 PM Interpretation: Performing Lab: Notes/Report: [facility] ,White Blood Count7.64.0-11.0 10 3/uLRed Blood Count5.224.70-6.10 10 6/uL Gdexeqjyqe26.014.0-18.0 g/nKMljdsxohps87.642.0-54.0 %Mean Corpuscular Zzfsnj71.4 80.0-94.0 fLMean Corpuscular Hsufwajblc35.825.9-34.0 pgMean Corpuscular HGB Conc 31.429.9-35.2 g/dLRed Cell Distribution Width15.111.0-15.0 %Platelet Zazqw777 150-450 10 3/uLMean Platelet Volume9.89.5-13.5 fLPerforming Lab:see noteML - [facility] LBXR ankle LT min 3V Reviewed date:08/29/2024 12:27:30 PM Interpretation: Performing Lab: Notes/Report: Source Facility: [facility]-[address] [place] [address] [place] [address] XRay Report Signed Patient: MATTY GARCES MR#: [id number] : 1970 Acct:[id number] Age/Sex: 53 / M ADM Date: 08/29/24 Loc: ER Attending Dr: Ordering Physician: Sukhdev Amaral Date of Service: 08/29/24 Procedure(s): XR ankle LT min 3V Accession Number(s): [id number] cc: Venus Mendez M.D.; Sukhdev Amaral [place] [id number] Patient Name: MATTY GARCES MRN: [id number] date: 1970 Sex: M Assigned Patient Location: ED.MAIN Current Patient Location: ER Accession/Order Number: [id number] Exam Date: 08/29/2024 05:10 Report Date: 08/29/2024 05:32 At the request of: SUKHDEV AMARAL Procedure: XR ankle LT min 3V [...] Signed By: 08/29/24 0535 DD/ 0532 TD/TT: Roofing Laborer:ECG 12 lead Reviewed date:08/29/2024 12:27:30 PM Interpretation: Performing Lab: Notes/Report: Source Facility: [place] [address] [place] [address] Electrocardiograph Report Signed Patient: MATTY GARCES MR#: [id number] : 1970 Acct:[id number] Age/Sex: 53 / M ADM Date: 08/29/24 Loc: ER Attending Dr: Ordering Physician: Sukhdev Amaral Date of Service: 08/29/24 Procedure(s): ECG 12 lead Accession Number(s): [id number] cc: [facility] Test Date: 2024-08-29 Pat Name: MATTY GARCES Department: Room: - Gender: Male Cleaning Team Member: : 1970 Requested By: VENUS MENDEZ Order Number: [id number] Reading MD: VENUS MENDEZ Measurements Intervals [place] Rate: 99 P: 58 IN: 168 QRS: 54 QRSD: 90 T: 30 [...] Signed By: 08/29/24 0659 DD/ 0500 TD/TT: Roofing Laborer:XR foot LT min 3V Reviewed date:08/29/2024 12:27:30 PM Interpretation: Performing Lab: Notes/Report: Source Facility: [place] [address] XRay Report Signed Patient: MATTY GARCES MR#: [id number] : 1970 Acct:[id number] Age/Sex: 53 / M ADM Date: 08/29/24 Loc: ER Attending Dr: Ordering Physician: Sukhdev Amaral Date of Service: 08/29/24 Procedure(s): XR foot LT min 3V Accession Number(s): [id number] cc: Venus Mendez M.D.; Sukhdev Amaral [place] [address] Patient Name: MATTY GARCES MRN: [facility]:[id number] date: 1970 Sex: M Assigned Patient Location: ED.MAIN Current Patient Location: ER Accession/Order Number: [id number] Exam Date: 08/29/2024 05:10 Report Date: 08/29/2024 05:32 At the request of: SUKHDEV AMARAL Procedure: XR foot LT min 3V [...] Signed By: 08/29/24 0535 DD/ 0532 TD/TT: Roofing Laborer:PROF Deutsch(COMP METB) Reviewed date:08/29/2024 12:27:30 PM Interpretation: Performing Lab: Notes/Report: [facility] ,[id number] mmol/LPotassium3.43.5-5.1 mmol/ZFkfsiutf50805-591 mmol/LCarbon Hybarrf96.621.0-32.0 mmol/LAnion Gap11.0Pezxvfn8561-255 mg/dLBlood Urea Nitrogen 13.07.0-18.0 mg/dLCreatinine1.400.70-1.30 mg/dLEstimated GFR ( Elizabeth>60 >=60 mL/min/1.73m 2Estimated GFR (Non- Ame53>=60 mL/min/1.73m 2BUN Creatinine Ratio9.7Akornes7.98.5-10.1 mg/dLBilirubin Total0.70.2-1.0 mg/dL Aspartate Amino Gczimxlvzsq6329-94 U/LAlanine Pyhixfnyvbpcswfy7145-69 U/L Alkaline Vkyklnqwctq48782-852 U/LTotal Protein8.06.4-8.2 g/dLAlbumin Level3.7 3.4-5.0 g/dLGlobulin4.3Albumin Globulin Ratio0.9Performing Lab:see noteML - [facility] LBLACTATE or LACTIC ACID Reviewed date:08/29/2024 12:27:30 PM Interpretation: Performing Lab: Notes/Report: [facility] ,Lactate/Lactic Acid2.10.4-2.0 mmol/L RESULTS CALLED TO GUI LIANG RN @BY Supriya Nunes at 0508 Performing Lab:see noteML - [facility] LBCBC AUTO DIFF Reviewed date:08/29/2024 12:27:30 PM Interpretation: Performing Lab: Notes/Report: [facility] ,White Blood Count11.34.0-11.0 10 3/uLRed Blood Count5.734.70-6.10 10 6/uL Pnyvnojvgb02.414.0-18.0 g/eKNaxjotdbht70.542.0-54.0 %Mean Corpuscular Zfhllf90.6 80.0-94.0 fLMean Corpuscular Oaaafpqdjn53.925.9-34.0 pgMean Corpuscular HGB Conc 31.829.9-35.2 g/dLRed Cell Distribution Width15.311.0-15.0 %Platelet Omoqo562 150-450 10 3/uLMean Platelet Volume9.29.5-13.5 fLNeutrophils Percent Auto83.2 43.0-75.0 %Lymphocytes Percent Auto6.920.5-60.0 %Monocytes Percent Auto7.71.7- 12.0 %Eosinophils Percent Auto1.10.9-7.0 %Basophils Percent Auto0.50.2-2.0 % Immature Granulocytes Pct Auto0.60.0-0.5 %Neutrophils Absolute Auto9.41.4-6.5 10 3/uLLymphocytes Absolute Auto0.81.2-3.8 10 3/uLMonocytes Absolute Auto0.90.3-0.8 10 3/uLEosinophils Absolute Auto0.10.0-0.7 10 3/uLBasophils Absolute Auto0.10.0- 0.1 10 3/uLImmature Granulocytes Abs Auto0.070.00-0.03 10 3/uLPerforming Lab:see noteML - [facility] LBErythrocyte Sedimentation Rate Reviewed date:08/29/2024 12:27:30 PM Interpretation: Performing Lab: Notes/Report: [facility] ,Erythrocyte Sedimentation Rate51<=20 mm/hrPerforming Lab:see noteML - [facility] LBCBC AUTO DIFF Reviewed date:08/29/2024 12:27:30 PM Interpretation: Performing Lab: Notes/Report: [facility] ,White Blood Count9.14.0-11.0 10 3/uLRed Blood Count5.894.70-6.10 10 6/uL Obkdjsxyem20.014.0-18.0 g/xRRgltsqdgwb08.242.0-54.0 %Mean Corpuscular Smaafi83.2 80.0-94.0 fLMean Corpuscular Bgbnqzusop90.225.9-34.0 pgMean Corpuscular HGB Conc 31.929.9-35.2 g/dLRed Cell Distribution Width15.611.0-15.0 %Platelet Uwngs991 150-450 10 3/uLMean Platelet Volume9.29.5-13.5 fLNeutrophils Percent Auto77.5 43.0-75.0 %Lymphocytes Percent Auto11.520.5-60.0 %Monocytes Percent Auto7.51.7- 12.0 %Eosinophils Percent Auto1.30.9-7.0 %Basophils Percent Auto0.90.2-2.0 % Immature Granulocytes Pct Auto1.30.0-0.5 %Neutrophils Absolute Auto7.01.4-6.5 10 3/uLLymphocytes Absolute Auto1.01.2-3.8 10 3/uLMonocytes Absolute Auto0.70.3-0.8 10 3/uLEosinophils Absolute Auto0.10.0-0.7 10 3/uLBasophils Absolute Auto0.10.0- 0.1 10 3/uLImmature Granulocytes Abs Auto0.120.00-0.03 10 3/uLPerforming Lab:see noteML - [facility] LBPSA SCREENING Reviewed date:08/05/2024 10:32:26 AM Interpretation: Performing Lab: Notes/Report: [facility] ,Prostate Specific Antigen Scrn2.37<=4.00 ng/mLPerforming Lab:see noteML - [facility] LBPROF 14(COMP METB) Reviewed date:08/05/2024 10:32:26 AM Interpretation: Performing Lab: Notes/Report: [facility] ,Bxoomg237212-830 mmol/LPotassium4.03.5-5.1 mmol/BYdnvruss46392-650 mmol/LCarbon Orwdqfj82.821.0-32.0 mmol/LAnion Gap11.1Nhcbvib6373-362 mg/dLBlood Urea Nitrogen 11.07.0-18.0 mg/dLCreatinine1.210.70-1.30 mg/dLEstimated GFR ( Elizabeth>60 >=60 mL/min/1.73m 2Estimated GFR (Non- Gwen>60>=60 mL/min/1.73m 2BUN Creatinine Ratio9.5Nxlzjer2.98.5-10.1 mg/dLBilirubin Total0.90.2-1.0 mg/dL Aspartate Amino Qqwcmxpjcsu9030-66 U/LAlanine Jyojkvbcdzhekjvq2725-53 U/L Alkaline Pbcebhosrcp91237-511 U/LTotal Protein7.96.4-8.2 g/dLAlbumin Level3.6 3.4-5.0 g/dLGlobulin4.3Albumin Globulin Ratio0.8Performing Lab:see noteML - [facility] LBLIPID PROFILE Reviewed date:08/05/2024 10:32:26 AM Interpretation: Performing Lab: Notes/Report: [facility] ,Knsvqojkubsyu132<=150 mg/dSRswpxfkfsil092<=200 mg/dLHDL Mcslensviea0275-15 mg/dL > or =60 mg/dl - LOW CARDIOVASCULAR RISK <40 mg/dl - HIGH CARDIOVASCULAR RISK LDL Cholesterol Tdpwcajpnx961.0 <100 mg/dl OPTIMAL 100-129 mg/dl NEAR OR ABOVE OPTIMAL 130-159 mg/dl BORDERLINE HIGH 160-189 mg/dl HIGH >190 mg/dl VERY HIGH VLDL EYFGIUTSPYB28.6Chol HDL Ratio4.7 3.3 - 4.4 LOW RISK 4.4 - 7.1 AVERAGE RISK 7.1 - 11.0 MODERATE RISK >11.0 HIGH RISK Performing Lab:see noteML - [facility] LBGLYCOHEMOGLOBIN A1C Reviewed date:08/05/2024 10:32:26 AM Interpretation: Performing Lab: Notes/Report: [facility] ,Glycohemoglobin A1C6.34.5-6.2 % ADA RECOMMENDED LIMIT 4.0 - 6.0 ADA THERAPEUTIC TARGET < 7.0 ACTION SUGGESTED > 7.0 Estimated Average Llswlcd190Jlcvigghbz Lab:see note - [facility] LB PROF 14(COMP METB) Reviewed date:04/24/2025 08:22:26 PM Interpretation: Performing Lab: Notes/Report: [facility] ,Hrjguw163493-743 mmol/LPotassium3.83.5-5.1 mmol/QKeplhora54165-231 mmol/LCarbon Oqtcxwo86.321.0-32.0 mmol/LAnion Gap7.0Cpaenvr08776-380 mg/dLBlood Urea Nitrogen 11.07.0-18.0 mg/dLCreatinine0.950.70-1.30 mg/dLEstimated GFR ( Elizabeth>60 >=60 mL/min/1.73m 2Estimated GFR (Non- Gwen>60>=60 mL/min/1.73m 2BUN Creatinine Ratio11.5Crfrbig2.28.5-10.1 mg/dLBilirubin Total0.40.2-1.0 mg/dL Aspartate Amino Uhevjjigaal9188-32 U/LAlanine Ycffboxdlserubfc5783-99 U/L Alkaline Pkurrsarnac55009-392 U/LTotal Protein7.96.4-8.2 g/dLAlbumin Level3.5 3.4-5.0 g/dLGlobulin4.4Albumin Globulin Ratio0.8Performing Lab:see note - [facility] LBCBC AUTO DIFF Reviewed date:04/24/2025 08:22:26 PM Interpretation: Performing Lab: Notes/Report: [facility] ,White Blood Count7.64.0-11.0 10 3/uLRed Blood Count4.834.70-6.10 10 6/uL Xdwpbqmclb43.514.0-18.0 g/vFMmxxotnmrc98.342.0-54.0 %Mean Corpuscular Vbflkz84.6 80.0-94.0 fLMean Corpuscular Bumjbrlpze21.025.9-34.0 pgMean Corpuscular HGB Conc 33.529.9-35.2 g/dLRed Cell Distribution Width15.311.0-15.0 %Platelet Svodh802 150-450 10 3/uLMean Platelet Volume9.99.5-13.5 fLNeutrophils Percent Auto74.5 43.0-75.0 %Lymphocytes Percent Auto13.120.5-60.0 %Monocytes Percent Auto8.91.7- 12.0 %Eosinophils Percent Auto1.30.9-7.0 %Basophils Percent Auto1.10.2-2.0 % Immature Granulocytes Pct Auto1.10.0-0.5 %Neutrophils Absolute Auto5.61.4-6.5 10 3/uLLymphocytes Absolute Auto1.01.2-3.8 10 3/uLMonocytes Absolute Auto0.70.3-0.8 10 3/uLEosinophils Absolute Auto0.10.0-0.7 10 3/uLBasophils Absolute Auto0.10.0- 0.1 10 3/uLImmature Granulocytes Abs Auto0.080.00-0.03 10 3/uLPerforming Lab:see noteML - [facility] LBGram Stain Result Reviewed date:06/22/2025 12:04:05 PM Interpretation: Performing Lab: Notes/Report: 1ST LEFT METATASAL CX [facility] ,Gram Stain ResultSee Below For Report Gram Stain Result Gram Stain ResultNo white blood cells seen. Gram Stain Result Gram Stain Result Gram Stain Result Gram Stain ResultNo organisms seen Gram Stain Result Gram Stain ResultPerformed at: - [facility] Gram Stain Result Gram Stain [address] [place], [place] [id number] Gram Stain Result Gram Stain ResultLab Director: Arthur Snyder PhD, Phone: [phone] Gram Stain Result Gram Stain Result Gram Stain Result Gram Stain Result* This is a corrected result. * Gram Stain Result Gram Stain Result Gram Stain Result Gram Stain ResultA prior result that was reported as final has been changed. Gram Stain Result Performing Lab:see note - [facility] LB SEE REPORT - Spinning Lathe Operator Id information not found for OBX-specific movie producer legend Anaerobic Cult, Extended Incub Reviewed date:07/06/2025 03:55:00 PM Interpretation: Performing Lab: Notes/Report: 1ST LEFT METATASAL CX [facility] ,Anaerobic Cult, Extended IncubSee Below For Report Anaerobic Cult, Extended Incub Anaerobic Cult, Extended IncubNo aerobic or anaerobic growth in 72 hours. Anaerobic Cult, Extended Incub Anaerobic Cult, Extended Incub Anaerobic Cult, Extended Incub Anaerobic Cult, Extended IncubNo growth after 14 days. Anaerobic Cult, Extended Incub Performing Lab:see note - [facility] LBTissue Culture Reviewed date:06/25/2025 12:43:42 PM Interpretation: Performing Lab: Notes/Report: 1ST LEFT METATASAL CX [facility] ,Tissue CultureSee Below For Report Tissue Culture Tissue CultureNo growth after 18-24 hours. Tissue Culture Tissue Culture Tissue Culture Tissue CultureNo growth in 36 - 48 hours. Tissue Culture Tissue Culture Tissue Culture Tissue CultureNo growth in 56 - 72 hours. Tissue Culture Tissue CulturePerformed at: [facility] Tissue Culture Tissue [address] [place], [place] [id number] Tissue Culture Tissue CultureLab Director: Arthur Snyder PhD, Phone: [phone] Tissue Culture Performing Lab:see note - [facility] LB SEE REPORT - Spinning Lathe Operator Id information not found for OBX-specific movie producer legend XR foot LT min 3V Reviewed date:06/21/2025 12:47:02 PM Interpretation: Performing Lab: Notes/Report: Source Facility: [place] [address] [place] [address] XRay Report Signed Patient: MATTY GARCES MR#: [id number] : 1970 Acct:[id number] Age/Sex: 54 / M ADM Date: 06/16/25 Loc: MS 201-[address]: Bonnie Tobar M.D. Ordering Physician: Clarisa Vallejo D.P.M. Date of Service: 06/20/25 Procedure(s): XR foot LT min 3V Accession Number(s): [id number] cc: Clarisa Vallejo D.P.M.; Venus Mendez M.D. [place] [id number] Patient Name: MATTY GARCES MRN: [facility]:[id number] date: 1970 Sex: M Assigned Patient Location: [place] Current Patient Location: [place] Accession/Order Number: [id number] Exam Date: 06/20/2025 14:16 Report Date: 06/20/2025 22:20 At the request of: CLARISA VALLEJO DPM Procedure: XR foot LT min 3V Left [...] Rodas M.D. 06/20/2025 10:20 PM Dictation Location: [place] [address] Electronically authenticated by: [id number] Y Date: 06/20/2025 22:20 Dictated By: Venkat Rodas M.D. Signed By: 06/20/252222 DD/ 19 TD/TT: Roofing Laborer:Tissue Culture Reviewed date:07/06/2025 03:55:00 PM Interpretation: Performing Lab: Notes/Report: 1ST LEFT METATASAL CX [facility] ,Tissue CultureSee Below For Report Tissue Culture Tissue CultureNo growth after 18-24 hours. Tissue Culture Tissue Culture Tissue Culture Tissue CultureNo growth in 36 - 48 hours. Tissue Culture Tissue Culture Tissue Culture Tissue CultureNo growth in 56 - 72 hours. Tissue Culture Tissue CulturePerformed at: [facility] Tissue Culture Tissue [address] [place], [place] [id number] Tissue Culture Tissue CultureLab Director: Arthur Snyder PhD, Phone: [phone] Tissue Culture Performing Lab:see note LC - [facility] LB SEE REPORT - Spinning Lathe Operator Id information not found for OBX-specific movie producer legend Fungus (Mycology) Culture Reviewed date:06/26/2025 02:19:36 PM Interpretation: Performing Lab: Notes/Report: 1ST LEFT METATASAL CX [facility] ,Fungus (Mycology) CultureSee Below For Report Fungus (Mycology) Culture Fungus (Mycology) CultureCulture Report: Fungus (Mycology) Culture Fungus (Mycology) CultureThe specimen submitted for fungus culture has been received and Fungus (Mycology) Culture Fungus (Mycology) Cultureculture has been initiated. Fungus (Mycology) Culture Fungus (Mycology) CulturePerformed at: - [facility] [place] Fungus (Mycology) Culture Fungus (Mycology) [address] [place], [place] [id number] Fungus (Mycology) Culture Fungus (Mycology) CultureLab Director: Arthur Snyder PhD, Phone: [phone] Fungus (Mycology) Culture Performing Lab:see note LC - [facility] LB SEE REPORT - Spinning Lathe Operator Id information not found for OBX-specific movie producer legend PROF CHEM 8 (BAS METB) Reviewed date:06/21/2025 12:47:02 PM Interpretation: Performing Lab: Notes/Report: [facility] ,Hpmaks032326-409 mmol/LPotassium3.93.5-5.1 mmol/FLcnciofh86241-351 mmol/LCarbon Ymghfws73.521.0-32.0 mmol/LAnion Gap11.1Ppmklyi71445-544 mg/dLBlood Urea Ahlhynjt88.07.0-18.0 mg/dLCreatinine0.830.70-1.30 mg/dLEstimated GFR ( Elizabeth>60>=60 mL/min/1.73m 2Estimated GFR (Non- Gwen>60>=60 mL/min/1.73m 2BUN Creatinine Ratio18.3Iisnyng7.18.5-10.1 mg/dLPerforming Lab:see noteML - [facility] LBCBC no Diff (Hemogram) Reviewed date:06/21/2025 12:47:02 PM Interpretation: Performing Lab: Notes/Report: [facility] ,White Blood Count7.84.0-11.0 10 3/uLRed Blood Count5.294.70-6.10 10 6/uL Foyqesedod13.614.0-18.0 g/xHEokvfgijwx41.742.0-54.0 %Mean Corpuscular Ieahll48.3 80.0-94.0 fLMean Corpuscular Iqsgbovgzi78.625.9-34.0 pgMean Corpuscular HGB Conc 31.329.9-35.2 g/dLRed Cell Distribution Width13.411.0-15.0 %Platelet Rqofv976 150-450 10 3/uLMean Platelet Volume9.79.5-13.5 fLPerforming Lab:see noteML - [facility] LB Reason For Referral Diagnosis 1 Ankle pain (M25.579) Referral Organization [facility] Referring Provider First Name Kareem Referring Provider Last Name Andrea Referring Provider [facility] Referred Provider Clarisa Vallejo Referred Provider Specialty Podiatry Referral Priority Routine Diagnosis 1 Left fibular fractur e (S82.402A) Referral Organization [facility] Referring Provider First Name Kareem Referring Provider Last Name Andrea Referring Provider [facility] Referred Provider Fahad Bland Referred Provider Specialty Orthopedic S urgery Referral Priority Routine Medications Medication SIG (Take, Route, Frequency, Duration) Notes Start Date End Date Status Xywav 500 MG/ML 6ml Orally at bedtime 5ActiveFurosemide 20 mgTAKE ONE TABLET BY MOUTH ONCE DAILY FOR 30 DAYS; Duration: 30ActiveTestosterone Cypionate 200 MG/MLInject 0.75 mL Intramuscular WEEKLY; Duration: 28 days5ActiveEpiPen 2-Doug 0.3 MG/0.3MLas directed Injection once5ActiveSUMAtriptan Succinate 100 MG1 tablet at least 2 hours between doses as needed Orally Twice a dayPRNActiveMeclizine HCl 12.5 MG1 tablet as needed Orally prn every 12 hrsPRNActiveGlycopyrrolate 1 mgTAKE ONE TABLET BY MOUTH TWICE A DAY; Duration: 30Not-TakingGabapentin 600 mgTake 1 tablet orally once daily; Duration: 30 daysActiveMulti For Him 50+ -as directed OrallyActiveModafinil 200 MG1 tablet in the morning Orally BIDActiveOndansetron 4 MG1 tablet on the tongue and allow to dissolve Orally Once a dayActiveAspirin 81 81 MG1 tablet Orally Once a dayActiveCarvedilol 25 MG1 tablet with food Orally Twice a day; Duration: 30 days5ActiveBiotin 10 MG1 tablet Orally Once a dayActiveCholecalciferol 125 MCG (5000 UT)1 tablet on the tongue and allow to dissolve Orally Once a dayActiveCeleXA 40 MG1 tablet Orally Once a day; Duration: 30 days07/06/2024ctiveEliquis 5 MGTAKE TWO TABLETS BY MOUTH TWICE A DAY FOR 6 DAYS, THEN 1 TAB TWICE A DAY THEREAFTER Oral; Duration:30 DaysActive Doxazosin Mesylate 4 MG1 tablet Orally Once a day; Duration: 90 daysActive Protonix 40 MG1 tablet Orally twice a day; Duration: 30 days5Active Amantadine HCl 100 MG1 tablet Orally BID; Duration: 30 daysActiveSildenafil Citrate 25 MG1 tablet as needed Orally daily04/04/2024ctivePotassium Chloride ER 10 MEQTAKE ONE TABLET BY MOUTH TWICE A DAY WITH FOOD; Duration: 30Active Simvastatin 20 mgTAKE ONE TABLET BY MOUTH DAILY IN THE EVENING; Duration: 30 Active Social History Tobacco Use: Social History Observation Description Date Details (start date - stop date) Never Smoker NA - NA Tobacco Use/Smoking Question Answer Notes Patient is a nonsmoker Alcohol Screen (Audit-C) Question Answer Notes Did you have a drink containing alcohol in the p ast year? No Diulwx3PepdsoegqzmclhUdkjvfzoNDMRZ-L (Standard) Question Answer Notes Did you have a drink containing alcohol in the p ast year? No Xbfybb6LskkxhhtgkfpvtSszbwgmj Problems Problem Type SNOMED Code ICD Code Onset Dates Problem Status W/U Status Risk Notes Problem Obstructive sleep ap lorna syndrome (disorder) (41043331) Obstructive sleep apnea (adult) (pediatric) (G47.33) ActiveconfirmedProblemFoot ulcer due to type 2 diabetes mellitus (9172112833233) Type 2 diabetes mellitus with foot ulcer (E11.621)ActiveconfirmedProblemInsomnia (874179064)Insomnia, unspecified (G47.00)ActiveconfirmedProblemAcute on chronic hypoxemic and hypercapnic respiratory failure (disorder) (83564022770898)Acute and chronic respiratory failure with hypercapnia (J96.22)ActiveconfirmedProblem Arthropathy associated with a neurological disorder (98712784)Charcot's joint, left ankle and foot (M14.672)ActiveconfirmedProblemHypertension (39692513) Hypertension (I10)ActiveconfirmedProblemGastroesophageal reflux disease (243347051)GERD (gastroesophageal reflux disease) (K21.9)ActiveconfirmedProblem Carpal tunnel syndrome (59374565)Carpal tunnel syndrome (G56.00)Activeconfirmed ProblemAnxiety (26751379)Anxiety (F41.9)ActiveconfirmedProblemPneumonia (347807135)Pneumonia (J18.9)ActiveconfirmedProblemDepression (305038475) Depression (F32.9)ActiveconfirmedProblemObstructive sleep apnea syndrome (58744435)PATEL (obstructive sleep apnea) (G47.33)ActiveconfirmedProblemInsomnia (563357608)Insomnia (G47.00)ActiveconfirmedProblemMigraine (15362102)Migraine (G43.909)ActiveconfirmedProblemLumbar radiculopathy (014316687)Lumbar radiculopathy (M54.16)ActiveconfirmedProblemHypersomnia (30963319)Hypersomnia (G47.10)ActiveconfirmedProblemLumbar arthritis (disorder) (888925440)Lumbar spondylitis (M46.96)ActiveconfirmedProblemCervical disc disease (905176550) Cervical disc disease (M50.90)ActiveconfirmedProblemSystolic murmur (65733301) Systolic murmur (I38)ActiveconfirmedProblemCellulitis (045950487)Cellulitis (L03.90)ActiveconfirmedProblemChronic pain (01396089)Chronic pain (G89.29)Active confirmedProblemLateral epicondylitis (280226949)Lateral epicondylitis (M77.10) ActiveconfirmedProblemOtitis externa (4321141)Otitis externa (H60.90)Active confirmedProblemOtitis externa of left ear (0229931218286739)Otitis externa of left ear (H60.92)ActiveconfirmedProblemArthralgia of the ankle and/or foot (752675125)Left ankle pain (M25.572)ActiveconfirmedProblemRight upper quadrant pain (361469114)Right upper quadrant abdominal pain (R10.11)Activeconfirmed ProblemBursitis (61992856)Bursitis (M71.9)ActiveconfirmedProblemErectile dysfunction (disorder) (333517933)Impotence (N52.9)ActiveconfirmedProblem Decreased testosterone level (833861548)Decreased testosterone level (E29.1) ActiveconfirmedProblemLeft fibular fracture (S82.402A)ActiveconfirmedProblem Ulcer of right foot (disorder) (174642850)Foot ulcer, right (L97.519)Active confirmedProblemNon-pressure chronic ulcer of other part of left foot with muscle involvement without evidence of necrosis (L97.525)ActiveconfirmedProblem Ulcer of big toe (disorder) (840717026)Chronic ulcer of great toe of left foot with fat layer exposed (L97.522)ActiveconfirmedProblemHyperhidrosis (056212156) Hyperhidrosis (R61)ActiveconfirmedProblemType II diabetes mellitus without complication (868984729)Diabetes (E11.9)ActiveconfirmedProblemDiabetes mellitus (80299946)Diabetes mellitus (E11.9)ActiveconfirmedProblemBody mass index 35.00 to 39.99 (622839343538242)Body mass index [BMI] 38.0-38.9, adult (Z68.38)Active confirmedProblemPolyneuropathy due to type 2 diabetes mellitus (244193337) Controlled type 2 diabetes mellitus with diabetic polyneuropathy, unspecified whether intermediate insulin use (E11.42)ActiveconfirmedProblemChronic ulcer of right foot (disorder) (72635059219132570)Chronic ulcer of right foot with fat layer exposed (L97.512)ActiveconfirmedProblemDegeneration of lumbosacral intervertebral disc (99760563)Degenerative disc disease at L5-S1 level (M51.37) Activeconfirmed Vital Signs Blood pressure diastolic 88 mm Hg 06/28/2025 Jmfbsg21 in06/28/2025lood pressure ucldzlim321 mm Hg06/28/20251098Goswxe198.8 lbs 06/28/2025BMI33.59 kg/m206/28/2025 Encounters Encounter Location Date Provider Diagnosis [address] [address] 04/24/2025 Kareem Hoy Hypertension I10 [address] [address] 04/27/2025 Kareem Hoy Hypertension I10 [address] [address] 03/15/2025 Kareem Hoy Lumbar radiculopathy M54.16 ; Diabetes E11.9 ; Controlled type 2 diabetes mellitus with diabetic polyneuropathy, unspecified whether intermediate insulin use E11.42 ; Ankle pain, left 719.47 and Ankle pain, right M25.[address] [address] 06/28/2025 Kareem Hoy Type 2 diabetes crow itus with foot ulcer E11.621 and Hypertension I10 [address] [address] 10/16/2024 Kareem Hoy Cellulitis L03.90 an d Hypertension I10 [address] [address] 12/13/2024 Kareem Hoy Acute otitis media, left H66.92 ; Otalgia of left ear H92.02 and Otitis externa of left ear H60.[address] [address] 02/22/2025 Kareem Hoy Lumbar radiculopathy M54.16 ; Decreased testosterone level E29.1 ; Insomnia G47.00 ; Type 2 diabetes mellitus with foot ulcer E11.621 ; Hypertension I10 and Ankle pain M25.579 [facility] [address] [address] 05/18/2025 Kareem Andrea Hypertension I10 [facility] [address] [place] [address] 05/21/2025 Kareem Hoy [facility] [place] [address] 07/09/2025[facility] [place] [address]/Doug [facility] [address]/[facility] [place] [address]/Doug HoyLeft fibular fracture S82.402[facility] [place] [address]/02/2025[facility] [place] [address]/08/2025[facility] [place] [address]/Doug HoyHTN (hypertension) I10 and Decreased testosterone level E29.1[facility] [address]/Doug [facility] [address]/Doug [facility] [facility] [place] [address]/ Kareem [facility] [address]/Doug [facility] [place] [address]/12/2024Doug [facility] [place] [address]/03/2025[facility] [place] [place] [address]/Doug [facility] [place] [address]/ou Eran Chronic pain G89.29 ; Migraine G43.909 ; HTN (hypertension) I10 ; Diabetes E11.9 and Screening for prostate cancer Z12.5[facility] [place] [address]/[facility] [place] [address]/04/2025[facility] [place] [address]/04/2025 Kareem [facility] [place] [address]/08/2025[facility] [place] [address]/Do Eran Assessments Encounter Date Diagnosis (ICD Code) Assessment Notes Treatment Notes Treatment Clinical Notes Section Notes 10/16/2024 Hypertension (ICD-10 - I10) 5Cellulitis (ICD-10 - L03.90)5Acute otitis media, left (ICD-10 - H66.92)02/22/2025Lumbar radiculopathy (ICD-10 - M54.16)02/22/2025Decreased testosterone level (ICD-10 - E29.1)03/15/2025Lumbar radiculopathy (ICD-10 - M54.16)03/15/2025Diabetes (ICD-10 - E11.9)04/24/2025Hypertension (ICD-10 - I10) stop the txebsgrcnz68/15/2025Hypertension (ICD-10 - I10)06/28/2025Type 2 diabetes mellitus with foot ulcer (ICD-10 - E11.621)06/28/2025Hypertension (ICD- 10 - I10)disucssed restarting whole doxazosin since bp up sl08/03/2024Migraine (ICD-10 - G43.909)08/03/2024hronic pain (ICD-10 - G89.29)04/11/2025Left fibular fracture (ICD-10 - S82.402A)04/25/2025HTN (hypertension) (ICD-10 - I10) 05/18/2025Hypertension (ICD-10 - I10)04/25/2025Decreased testosterone level (ICD-10 - E29.1)12/13/2024Otalgia of left ear (ICD-10 - H92.02)08/03/2024HTN (hypertension) (ICD-10 - I10)03/15/2025ontrolled type 2 diabetes mellitus with diabetic polyneuropathy, unspecified whether intermediate insulin use (ICD-10 - E11.42)02/22/2025Insomnia (ICD-10 - G47.00)02/22/2025Type 2 diabetes mellitus with foot ulcer (ICD-10 - E11.621)12/13/2024Otitis externa of left ear (ICD-10 - H60.92)03/15/2025nkle pain, left (ICD9-CM - 719.47)08/03/2024iabetes (ICD-10 - E11.9)03/15/2025nkle pain, right (ICD-10 - M25.571)02/22/2025Hypertension (ICD-10 - I10)02/22/2025nkle pain (ICD-10 - M25.579)08/03/2024Screening for prostate cancer (ICD-10 - Z12.5)12/13/2024OtherYou have been prescribed antibiotics for otitis media. Antibiotics may bother your stomach, so try taking them with a light meal (unless instructed otherwise by your pharmacist). It is important to take them until they are finished. You can use sgwr-syi-vfnzaxo acetaminophen or ibuprofen if needed for pain. You have been prescribed antibiotics. You should be extra vigilant about hand washing or using hand electronic gaming device supervisor gel. You should follow up with your [...] PANEL (T4/TSH/FREE T3) THYROID PANEL (T4/TSH/FREE T3) THYROID PANEL (T4/TSH/FREE T3) PSA, SCREENING 08/03/2024 Lipid Panel 08/03/2024 CT ANKLE RIGHT WO CONTRAST 03/15/2025 Next Appt Details Provider Name:Kareem Mendez, 10:45:00 AM, [address] [facility], [place], [address], Insurance Providers Payer Name Payer Address Payer Phone Subscriber Number Group Number Insured Name Patient Relationship to Insured Coverage Start Date Coverage End Date [employer] [place] [employer] [address] [address] [place] [address] [id number] Adam Garces - patient is the [id number] 2022 Medications Administered Medication Instructions Date of Administration Dosage Notes Ceftriaxone 1 gram g1 gmCeftriaxone 1 gram gKenalog-40120 mg120 Kenalog-40020 qt700Wdxtyij-7765/08/9096618 mgKetorolac Tromethamine mgKetorolac Cuvpeuoucsmm88/29/202360 ao03Oinbovrxn Tromethamine ap05Dqiwuolyo Qgynzjofxwfr27/28/202360 xe62Pqlxugaqy Tromethamine 0 mgKetorolac Uvflwvrfzfdy91/08/906634 mgOrphenadrine Citrate mgOrphenadrine Oeqwumz69 yh05Ehwxmooiwqnr Citrate re36Pbntthjyslgo Faaralm06/18/469009 mg Medical (General) History Medical History History ICD Code HTN DECREASED TESTOSTERONE LEVELLUMBAR RADICULOPATHYHYPERSOMNIASYSTOLIC MURMUR HYPERHIDROSISDEGENERATIVE DISC DISEASELUMBAR SPONDYLOSISDIABETESCERVICALDISC DISEASECARPAL TUNNELLATERAL EPICONDYLITISCHRONIC PAINGERDINSOMNIAIMPOTENCE ANXIETYOSASurgical History Surgery Date(Month/Year) CERVICAL DECOMPRESSION RIGHT SHOULDERTONSILLECTOMYUVULOPLASTYVASECTOMYREVISED C6-J3ZQMQTFZXW HEAD OF FIRST PHALANXORIF left ankle Lateral Malleolus Fx, Closed Reduction Post Malleolus Fx03/15/24Left Great Toe Pupjnfwjml88/2025Hospitalization History Reason Date(Month/Year) 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
--- OUTSIDE RECORDS SUMMARY | 2025-07-10 11:28 | XMS_ITS | Clinical Summary ---
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 Take with meals. Active doxazosin (Cardura) 8 MG tablet Take 8 mg by mouth in the morning.Active doxepin (SINEquan) 10 MG capsule Take 10 mg by mouth as needed at bedtime.Active DULoxetine (Cymbalta) [address] capsule Take 60 mg by mouth in the morning and 60 mg in the evening.Active escitalopram (Lexapro) 20 MG tablet Take 20 mg by mouth in the morning.Active ASPIRIN 81 MG chewable tablet Chew 81 mg in the morning.Active furosemide (Lasix) 20 MG tablet Take 20 mg by mouth in the morning.Active gabapentin (Neurontin) 600 MG tablet Take 600 mg by mouth in the morning and 600 mg before bedtime.Active glycopyrrolate (Robinul) 1 MG tablet Take 1 mg by mouth in the morning and 1 mg before bedtime.01/22/2023ctive Meclizine HCl 25 MG chewable tablet Chew 25 mg 1 (one) time each day at the same time.Active ondansetron (Zofran) 4 MG tablet Take 4 mg by mouth if needed.Active OXcarbazepine (Trileptal) 300 MG tablet Take 300 mg by mouth at bedtime.Active pantoprazole (ProtoNix) 40 MG EC tablet Take 40 mg by mouth in the morning. Take before meals.Active potassium chloride CR (Klor-Con) 10 MEQ ER tablet Take 10 mEq by mouth in the morning. Take with food. .02/22/2023ctive simvastatin (Zocor) 20 MG tablet Take 20 mg by mouth at bedtime.Active SUMAtriptan (Imitrex) 100 MG tablet Take 100 mg by mouth 1 (one) time if needed.Active testosterone cypionate (Depo-Testosterone) 200 MG/ML injection Inject 200 mg into the shoulder, thigh, or buttocks every 14 (fourteen) days. Active tiZANidine (Zanaflex) 4 MG tablet Take 4 mg by mouth at bedtime.Active CeleXA 20 MG tablet 1 (one) time each day at the same time.06/02/2023ctive Multiple Vitamins-Minerals (Multi For Him 50+) tablet as directed OrallyActive B-D 3CC LUER-SAYRA SYR 23GX1 23G X 1 3 ML misc USE 1 SYRINGE INTRAMUSCULARLY ONCE A WEEK05/18/2023ctive CeleBREX 100 MG capsule 1 (one) time each day at the same timeActive HYDROcodone-acetaminophen ([place]) 5-325 MG tablet 03/20/2024ctive cholecalciferol (Vitamin D-3) 125 MCG (5000 UT) capsule 03/15/2024ctive senna (Senokot) 8.6 MG tablet 03/15/2024ctive ondansetron ODT (Zofran-ODT) 4 MG disintegrating tablet 03/15/2024ctive hydrOXYzine pamoate (Vistaril) 25 MG capsule Indications:Primary insomniaTAKE ONE CAPSULE BY MOUTH ONCE DAILY AT BEDTIME 30 capsule ctive clonazePAM (KlonoPIN) 1 MG tablet Indications:Primary insomniaTake 1 tablet (1 mg) by mouth at bedtime 30 tablet ctive modafinil (Provigil) 200 MG tablet Indications:Excessive daytime sleepiness,Obstructive sleep apneaTAKE 1 TABLET (200 MG) BY MOUTH IN THE MORNING AND AT NOON 60 tablet /5Active amantadine (Symmetrel) 100 MG tablet Indications:Excessive daytime sleepiness,Primary insomniaTAKE 1 TABLET (100 MG) BY MOUTH IN THE MORNING AND AT NOON 60 tablet 11005/16/0063916Active Melatonin 10 MG capsule Indications:Primary insomniaTake 10 mg by mouth at bedtime 90 capsule /Expired thiamine (Vitamin B-1) 100 MG tablet Indications:Excessive daytime sleepinessTake 1 tablet (100 mg) by mouth Daily 30 tablet 111/Expired Active Problems ProblemNoted DateDiagnosed DateCellulitis of left lower tiyxugsdd01/26/2025Open wound of left great toe10/08/2024Narcolepsy cataplexy /22/2025Obese 09/24/2024losed fracture of right fibula and tibia09/23/2024Fall at home, initial gzyhmxedg49/11/2025Weakness of left upper teakpkrte36/17/2024Left upper extremity cmawiopm80/17/2024Herniation of cervical intervertebral disc with idnungqpsethh78/17/2024ecreased testosterone level06/24/2023egeneration of lumbosacral intervertebral disc06/24/2023iabetes mellitus without complication 06/24/20232810Gngrxuejdqcyt18/12/2023Impotence of organic ipeuok4906/24/2023Lateral jqtycoxftkcdg26/12/2023Lumbar cqmebtovkkbyd11/12/2023Systolic rteevj84 Unspecified inflammatory spondylopathy, lumbar wozcst2506/24/2023ardiovascular stress test negqlosp68/09/2023hest uhtyxrhuoz82/09/2023ubital tunnel syndrome on right3Benign hypertensive cardiomyopathy with heart failure 06/09/2023hronic combined systolic and diastolic congestive heart failure, NYHA class Overview (10/15/2024): EF 45-50% with mild DD Diastolic dysfunction with chronic heart cusprul0306/09/2023Non-ischemic egwkurxjpomvph18/27/2023Primary xincaxjn02/29/2023Excessive daytime sleepiness 03/11/2023ervical paraspinal muscle spasm03/11/2023Nonpsychotic mental disorder due to organic brain knsuyk5306/26/2021pinal stenosis in cervical region 10/11/2018Cervical disc rcxkihes41/19/2018Carpal tunnel syndrome of right wrist 03/24/2018Arthritis of right acromioclavicular joint12/30/2017Other chronic pain 12/30/2017Excessive vrujiodo45/06/3183Vosvmjwomgyuigg36/29/2015Senile woktvkbigvzvll35/16/2015Urinary tract infectious zrlpspf9706/28/2014nkle edema 05/15/2014Ulnar nerve tjafrbmmff43/01/8852Jceqflpta58/27/2013Cellulitis 03/31/2013Disorder of intervertebral disc of lumbar spine12/02/2012Muscle pain 12/02/2012Foot pain10/07/2012Clouded lvzenfoedlknc24/21/8504Apmajkl60/21/2012 Rihfvcp3511/30/2011Chest pain11/30/20111784Gmiqfpqe56/17/2011Upper respiratory xkqhzmera94/25/2011Joint pain09/03/2009Hypertensive tdipwjtc98/05/2009Capillary pujiqsbeya46/15/2008Diabetes pbnttbyq94/11/0638Pdnilgrn17/21/2007nxiety slekclvj84/29/2006Impingement syndrome of shoulder pepjkj0601/25/2003Obstructive sleep apnea11/06/2002History of lofwtvemk37/29/1998 Encounters DateTypeDepartmentCare RzmzIvziscdrtxy89/09/2025Telephone [facility] [address] [place] [address] Radha Wright MA 05/15/2025Refill [facility] [address] [place] [address] Heather Miguel, [employer]ING [employer]ER Excessive daytime sleepiness; Primary djeucnga49/02/2025Refill [facility] [address] [place] [address] Christiano Geiger MD Excessive daytime sleepiness; Obstructive sleep apneafrom Last 3 Months Family History Medical HistoryRelationNameCommentsDiabetesFatherGlaucomaMotherRelationName StatusCommentsFatherAliveMotherAlive Social History Tobacco UseTypesPacks/DayYears UsedDateSmoking Tobacco: NeverSmokeless Tobacco: Never Tobacco Cessation:Counseling Given: Not Answered Alcohol UseStandard Drinks/WeekCommentsNot Currently0 (1 standard drink = 0.6 oz pure alcohol)Sex and Gender InformationValueDate RecordedSex Assigned at Not on fileLegal KdqWjio0811/25/2022 7:12 PM EDTGender IdentityNot on fileSexual OrientationNot on file Last Filed Vital Signs Vital SignReadingTime TakenCommentsBlood Mmidpchb976/9007 11:03 AM EDT Uhqen35766/23/2025 11:03 AM EDTTemperature--Respiratory Rate--Oxygen Saturation- -Inhaled Oxygen Concentration--Cnstdn623 kg (265 lb)04/04/2025 11:03 AM EDT Ymoyhz035 cm (6' 2 )04/04/2025 11:03 AM EDTBody Mass Index34.0207 11:03 AM EDT Plan of Treatment DateTypeDepartmentCare Team (Latest Contact Info)Ucpqxudxftg03/31/2025 2:40 PM EDTOffice Visit [facility] [address] [facility] [address] [place] [address] Heather Miguel, [employer]ER [address] [facility] [place] [place], [place] [id number] Health MaintenanceDue DateLast DoneCommentsCT Uuguijaaufid45/21/1970Colonoscopy 1969Colorectal Cancer Wfojozqqt75/21/1970FIT-DNA1969FIT1969 FOBT1969 2587Muxsdguzjioxt80/21/1970Influenza Vaccine (#1)51, 07/06/2023, 07/15/2022, Additional history exists Insurance Care Teams Team MemberRelationshipSpecialtyStart DateEnd Date Caden Mendez MD PCP - GeneralFamily Medicine01/10/24
--- OUTSIDE RECORDS SUMMARY | 2025-07-10 11:28 | XMS_ITS | Clinical Summary ---
Author Organization [facility] Address [address] [place] [address] Care Team Providers Care Deck Builder Name Role Phone Unavailable Primary Care Provider Unavailabl e Source Comments The following information is NOT included in Care Everywhere downloads:Psychiatric notes, ECG results, Cardiac Rehab notes, Pulmonary Function notes, data from [employer] (includes but not limited toPregnancy data,audiograms, eye exams, pre-surgical evaluation notes, well-child exam data).[facility] Medications MedicationSigDispense QuantityRefillsLast FilledStart DateEnd DateStatus TRAMADOL HCL ORAL Take by mouthActive hydrocodone-acetaminophen (VICODIN) 5-500 MG per tablet Take 1 Tab by mouth every 6 hours as neededActive DULoxetine HCl (CYMBALTA ORAL) Take by mouthActive Pregabalin (LYRICA ORAL) Take by mouthActive CARVEDILOL ORAL Take by mouthActive Social History Tobacco UseTypesPacks/DayYears UsedDateSmoking Tobacco: NeverAlcohol UseStandard Drinks/WeekCommentsNo0 (1 standard drink = 0.6 oz pure alcohol)Substance Use TypesUse/WeekCommentsNoSex and Gender InformationValueDate RecordedSex Assigned at BirthNot on fileLegal BdkXpmi06/12/2012 1:17 PM ESTGender IdentityNot on file Sexual OrientationNot on file Plan of Treatment Health MaintenanceDue DateLast WzusZocmkjmsZgzgtraxzsx81/21/1970HIV Test 1984Hepatitis C Lpnaorjz56/21/1988Tdap Epcluil8010/03/1987Hepatitis A (HAV) Vaccine (optional start 19+ years)1988Hepatitis B (HBV) Vaccine (1 of 3 - 19+ 3-dose series)1988Tetanus (Td or Tdap) Gyeihxm6210/03/1988Cholesterol 2004CRC Odgydlxnq97/21/2015Cologuard (Stool DNA)2014FIT2014 Pneumococcal Vaccine(s) (50+ yrs) (1 of 1 - PCV)2019Shingles (RZV) Vaccine (1 of 2)2019COVID-19 Vaccine (1 - 2024- season)2025Influenza Vaccine (#1)2025 Insurance
--- OUTSIDE RECORDS SUMMARY | 2025-07-10 11:28 | XMS_ITS | Encounter Summary ---
Author Organization [facility] Address [address] [facility] [place] [address] Care Team Providers Care Wire Preparation Worker Name Role Phone Caden Mendez MD Primary Care Provider [phone] Encounter Details DateTypeDepartmentCare Team (Latest Contact Info)Kalqczhhzgm71/09/2025Telephone [facility] [address] [facility] [address] [place] [address] Radha Wright MA Social History Tobacco UseTypesPacks/DayYears UsedDateSmoking Tobacco: NeverSmokeless Tobacco: NeverAlcohol UseStandard Drinks/WeekCommentsNot Currently0 (1 standard drink = 0.6 oz pure alcohol)Sex and Gender InformationValueDate RecordedSex Assigned at BirthNot on fileLegal HwcCbgr8411/25/2022 7:12 PM EDTGender IdentityNot on file Sexual OrientationNot on filedocumented as of this encounter Miscellaneous Notes * Telephone Encounter - Heather Miguel NP - 06/28/2025 4:29 PM EDT I called pharmacy and verified he is taking 3.25 twice nightly, second dose 2.5- 4 hours later. He was given 1 refill. incorrect dosing that paul picked up in note but he did state increase dose at hislast visit. * Telephone Encounter - Radha Wright MA - 06/28/2025 3:51 PM EDT Pharmacy leaves another message regarding this issue * Telephone Encounter - Heather Miguel NP [...] 06/21/2025 9:21 AM EDT Message left from [facility] pharmacy- Ma, my name is Adriana. I am a pharmacist with [facility]. Pharmacy, our phone number , option [phone] will connect you with a pharmacist calling in regards to mutual patient of Dr. Geiger, patients name Alden, last name Mili, 1970 in regards to patients eBv. Patient prescription on files for the 2.25g [...] from 7AM to 8PM central standard ti me. Thanks, have a good bye bye documented in this encounter Plan of Treatment DateTypeDepartmentCare Team (Latest Contact Info)Jdbodtyldfc78/31/2025 2:40 PM EDTOffice Visit [facility] [address] [facility] [address] [place] [address] Heather Miguel, ELECTROCARDIOGRAPHIC TECHNICIAN [address] [facility] [address] [address] documented as of this encounter Visit Diagnoses Not on filedocumented in this encounter Care Teams Team MemberRelationshipSpecialtyStart DateEnd Date Caden Mendez MD PCP - GeneralFamily Medicine01/10/24documented as of this encounter
--- OUTSIDE RECORDS SUMMARY | 2025-07-10 11:28 | XMS_ITS | Clinical Summary ---
Author Organization [facility] Address [address] [place] [address] Care Team Providers Care Training Program Developer Name Role Phone Caden Mendez MD Primary Care Provider [phone] Christiano Geiger MD Unavailable [phone] Trey Vallejo DPM Unavailable [phone] Allergies No known active allergies Medications MedicationSigDispense QuantityRefillsLast FilledStart DateEnd DateStatus gabapentin (Neurontin) 600 mg tablet Take 600 mg by mouth three times daily.Active carvedilol (Coreg) 25 mg tablet Take 25 mg by mouth with breakfast and with evening meal.Active doxazosin (Cardura) 8 mg tablet Take 8 mg by mouth at bedtime.Active simvastatin (Zocor) 20 mg tablet Take 20 mg by mouth at bedtime.Active pantoprazole (ProtoNix) 40 mg EC tablet Take 40 mg by mouth before breakfast. Do not crush, chew, or split.Active glycopyrrolate (Robinul) 1 mg tablet Take 1 mg by mouth two times daily.Active furosemide (Lasix) 20 mg tablet Take 20 mg by mouth in the morning.Active potassium chloride ER (Micro-K) 10 mEq ER capsule Take 10 mEq by mouth two times daily. Do not crush or chew.Active sildenafil (Viagra) 25 mg tablet Take 25 mg by mouth if needed each day for erectile dysfunction.Active tiZANidine (Zanaflex) 4 mg capsule Take 4 mg by mouth in the evening.Active citalopram (CeleXA) 40 mg tablet Take 40 mg by mouth in the morning.Active multivitamin tablet Take 1 tablet by mouth in the morning.Active modafinil (Provigil) 200 mg tablet Take 200 mg by mouth twice a day.Active clonazePAM (KlonoPIN) 0.5 mg tablet Take 0.5 mg by mouth at bedtime.Active amantadine (Symmetrel) 100 mg capsule Take 100 mg by mouth two times daily.Active doxepin (SINEquan) 10 mg capsule Take 10 mg by mouth if needed at bedtime for sleep.Active SUMAtriptan (Imitrex) 100 mg tablet Take 100 mg by mouth 1 (one) time if needed for migraine.Active ondansetron (Zofran) 4 mg tablet Take 4 mg by mouth every 8 (eight) hours if needed for nausea or vomiting.Active meclizine (Antivert) 25 mg tablet Take 25 mg by mouth if needed in the morning, at noon, and at bedtime for dizziness.Active hydrOXYzine pamoate (Vistaril) 25 mg capsule Take 25 mg by mouth at bedtime. For insomniaActive methocarbamol 1,000 mg tablet Indications:Closed fracture of right tibia and fibula, initial encounterTake 1,000 mg by mouth if needed in the morning, at noon, and at bedtime for muscle spasms. 10 tablet 5Active testosterone cypionate (Depo-Testosterone) 200 mg/mL injection Inject 300 mg into the shoulder, thigh, or buttocks every 14 (fourteen) days. Active amLODIPine (Norvasc) 5 mg tablet Indications:Cellulitis of left legTake 1 tablet (5 mg) by mouth in the morning for 96 doses. 30 tablet 5Active Active Problems ProblemNoted DateDiagnosed DateCellulitis of left leg10/09/2024Left leg naliluhlgt66/26/2025 Assessment & Plan (10/08/2024 7:47 AM EST): Continue vanco and zosyn Ortho following Will get blood cultures Open wound of left great toe10/08/2024 Assessment & Plan (10/08/2024 8:36 AM EST): Will consult wound care HTN (hypertension)09/24/2024 Assessment & Plan (10/08/2024 7:47 AM EST): Continue modafinil, coreg PATEL (obstructive sleep apnea)09/24/2024Gastroesophageal reflux siktbyw0609/24/2024 Obese09/24/2024Fall at home, initial /11/2025losed fracture of right fibula and tibia09/23/2024 Assessment & Plan (10/08/2024 7:47 AM EST): Ortho following, concern for possible infection Admit to med surg Activity orders per ortho with LLE Cardiac diet Will get labs this morning and follow up on results Daily bmp and cbc to monitor kidney function, electrolytes, hgb and wbc Case will be discussed with attending physician Non-ischemic bezziedmrufnhk82/27/2023iastolic dysfunction with chronic heart tksvisn6006/09/2023enign hypertensive cardiomyopathy with heart plgshmq4706/09/2023 Chronic combined systolic and diastolic congestive heart failure, NYHA class 2 06/09/2023 Overview (06/09/2023): EF 45-50% with mild DD Assessment & Plan (10/08/2024 7:47 AM EST): Not in exacerbation Continue furosemide, coreg, asa Anxiety heslxwsi69/29/2006 Assessment & Plan (10/08/2024 7:47 AM EST): Continue citalopram, clonazepam Social History Tobacco UseTypesPacks/DayYears UsedDateSmoking Tobacco: NeverSmokeless Tobacco: Never Tobacco Cessation:Counseling Given: Not Answered Alcohol UseStandard Drinks/WeekCommentsYes0 (1 standard drink = 0.6 oz pure alcohol)monthlyAD[facility] UtilitiesAnswerDate RecordedIn the past 12 months has the [employer], [employer], or water [employer] threatened to shut off services in your home?No10/08/2024Humiliation, Afraid, Rape, and Kick questionnaireAnswerDate RecordedWithin the last year, have you been afraid of your partner or ex-partner?No10/08/2024Emotionally AbusedNot on file10/08/2024Physically Abused Not on file10/08/2024Sexually AbusedNot on file10/08/2024Overall Financial Resource Strain (CARDIA)AnswerDate RecordedHow hard is it for you to pay for the very basics like food, housing, medical care, and heating?Not very hard 10/08/2024TransportationAnswerDate RecordedIn the past 12 months, has lack of transportation kept you from medical appointments or from getting medications?No 10/08/2024Lack of Transportation (Non-Medical)Not on file10/08/2024Housing Stability Vital SignAnswerDate RecordedIn the last 12 months, was there a time when you were not able to pay the mortgage or rent on time?No10/08/2024Number of Times Moved in the Last YearNot on file10/08/2024t any time in the past 12 months, were you homeless or living in a care home (including now)?No10/08/2024 Hunger Vital SignAnswerDate RecordedWithin the past 12 months, you worried that your food would run out before you got the money to buymore.Never true10/08/2024 Ran Out of Food in the Last YearNot on file10/08/2024Sex and Gender Information ValueDate RecordedSex Assigned at NzqbnEtxy15/11/2025 11:46 AM ESTLegal SexMale 03/11/2022 10:17 PM EDTGender ZlrgoihzVqpi52/11/2025 11:46 AM ESTSexual OrientationChoose not to qzdfozjn85/11/2025 11:46 AM EST Last Filed Vital Signs Vital SignReadingTime TakenCommentsBlood Hhzgsxzy159/8810/11/2024 6:26 AM EST Sfiue5530/29/2025 6:26 AM XYBLryvhgmpbhc33.7 ??C (98.1 ??F)10/11/2024 6:26 AM ESTRespiratory Aiyt184910/11/2024 6:26 AM ESTOxygen Ualazimsqa91%10/11/2024 6:26 AM ESTInhaled Oxygen Concentration--Dxxgvx399 kg (231 lb 7.7 oz)10/10/2024 6:57 AM QXUPugyuj942 cm (6' 2 )10/08/2024 5:58 AM ESTBody Mass Index29.72010/08/2024 5:58 AM EST Plan of Treatment Health MaintenanceDue DateLast DoneCommentsCT Qrcvspjvpwnc88/21/1970Colonoscopy 1969Colorectal Cancer Zmdwpftzt80/21/1970Diabetes: Hemoglobin A1C 1969FIT-DNA1969FIT1969FOBT1969 6044Rfigpcbmwkqbf54/21/1970 Diabetes: Retinopathy Mldlcowql59/21/1980Depression Uqrtcxpzo48/21/1982Diabetes: Urine Protein Fdfapiuky37/21/1989Hepatitis B Vaccines (1 of 3 - 19+ 3-dose series)1988Pneumococcal Vaccine: Pediatrics (0 to 5 Years) and At-Risk Patients (6 to 64 Years) (1 of 2 - PCV)1988Adult Vbeutce7110/03/1991Zoster Vaccines (1 of 2)2019COVID-19 Vaccine ( - 2024- season)2025 08/18/2021, 12/24/2020, 12/02/2020Influenza Vaccine (#1), 07/06/2023, 07/15/2022, Additional history existsHIB VaccinesAged OutNo longer eligible based on patient's age to complete this topicHPV VaccinesAged OutNo longer eligible based on patient's age to complete this topicIPV VaccinesAged OutNo longer eligible based on patient's age to complete this topicMeningococcal B VaccineAged OutNo longer eligible based on patient's age to complete this topicMeningococcal VaccineAged OutNo longer eligible based on patient's age to complete this topicRotavirus VaccinesAged OutNo longer eligible based on patient's age to complete this topic Medical Devices ImplantedTypeAreaManufacturerDevice IdentifierShelf Expiration DateModel / Serial / LotTibial Nail Implanted:Qty: 1 on 09/24/2024 by [facility]: [id number] / / [id number] Implanted:Qty: 1 on 09/24/2024 by [facility]: [id number] / / [id number] Implanted:Qty: 1 on 09/24/2024 by Sand[facility]: [id number]/.045.044S / / [id number] Implanted:Qty: 1 on 09/24/2024 by Sand[facility]: [id number]/.045.046S / / [id number] Implanted:Qty: 1 on 09/24/2024 by Sandrine Field [facility]: [id number] / / [id number] Insurance * Guarantor: Alden Garces TypeRelation to PatientDate of BirthPhone Billing AddressPersonal/MblbteIpyv38/[birth year][id number] [place] [phone] Advance Directives * Full Code (Latest Code Status on File) Date ActivatedDate InactivatedComments10/08/2024 7:17 AM10/11/2024 4:47 PM * Full Code Date ActivatedDate InactivatedComments09/23/2024 1:50 PM09/28/2024 8:43 PM Care Teams Team MemberRelationshipSpecialtyStart DateEnd Date Caden Mendez MD [address] [facility] [place] [id number] PCP - General09/23/24 Christiano Geiger MD [address] [facility] [address] [id number] 10/11/24 Trey Vallejo DPM Address: [address] [place] [address] [place] [address] Podiatr10/11/24
--- OUTSIDE RECORDS SUMMARY | 2025-07-10 11:42 | XMS_ITS | CCD ---
Author Organization [facility] Care Team Providers Care Basting Cleaner Name Role Phone UNKNOWN, PROVIDER Admitting Unavailable UNKNOWN, PROVIDER Attending Unavailable VENUS JAEGER Referring Unavailable VENUS JAEGER Primary Care Unavailable MS Procedure Practitioner Unavailab le UNKNOWN, PROVIDER Surgeon Unavailable MS Procedure Practitioner Unavailab le SANDRA BILL Surgeon Unavailable UNKNOWN, PROVIDER Admitting Unavailable UNKNOWN, PROVIDER Attending Unavailable VENUS JAEGER Referring Unavailable VENUS JAEGER Primary Care Unavailable MS Procedure Practitioner Unavailab le UNKNOWN, PROVIDER Surgeon Unavailable Venus Jaeger Primary Care Physician [phone] DONOVAN Admitting Unavailable HOY [...] Attending Unavailable CHINO Vallejo Attending Provider [phone] Venus Jaeger MD Primary Care Provider [phone] Trey Vallejo DPM Attending Provider [phone] MARIANNA SUAREZ Referring Unavailable SUYAPA, SHIN Referring Unavailable SUYAPA, SHIN Referring Unavailable SELMA, SANDRINE Referring Unavailable MAI, CHRISTOPHER Referring Unavailable SUYAPA, SHIN Referring Unavailable SUYAPA, [...] Unavailable Venus Jaeger MD Primary Care Provider [phone] RUBÉN GEIGER Attending Unavailable RUBÉN GEGIER Attending Unavailable RUBÉN GEIGER Attending Unavailable RUBÉN GEIGER Attending Unavailable Venus Jaeger MD Primary Care Provider [phone] Jameel Coats DO Attending Provider [phone] Bonnie Ernandez MD Attending Provider [phone] Trey Vallejo Attending Unavailable Trey Vallejo Admitting Unavailable Bonnie Ernandez Attending Unavailable Bonnie Ernandez Admitting Unavailable Jameel Coats Attending Unavailable Jameel Coats Admitting Unavailable Venus Jaeger Primary Care Unavailable Allergies Allergy ClassificationReported Allergen(s)Allergy TypeDate of OnsetReaction(s) Facility (1 source)AspartameDrug Wzqkhzj38-80-7895Nkc [facility] Repository (1 source)avoid; Translations: [Unknown]Propensity to adverse reactions (disorder)19-16-4449Qwb [facility] Repository (1 source)vitamin B12; Translations: [cyanocobalamin]Drug AllergyUnknown (qualifier value)[facility] (1 source)Acetaminophen / HYDROcodoneDrug AllergyThe [facility] (1 source)CorticosteroidsDrug allergy (disorder)[facility] (1 source)fentaNYLDrug AllergyThe [facility] (1 source)Misc-Food; Translations: [Misc-Food]Food allergy (disorder)[facility] Rep[facility] (19 sources)fentaNYLDrug Dbenedy62-02-3311AotbrwsTAUZ [facility] (19 sources)HYDROcodoneDrug Yillfba52-80-4545SjblodsIBYD Healthcare (19 sources)Morphine And CodeineDrug Hvkxvlw42-29-4879SpmpoojRAWA Healthcare (19 sources)OtherPropensity to adverse -27-4871WDQQ Healthcare (1 source)CorticosteroidsDrug allergy (disorder)84-83-2451CjntsptbdTr[facility] Medications Current Medications MedicationDrug Class(es)DatesSig (Normalized)Sig (Original)acetaminophen 325 mg / HYDROcodone bitartrate 5 mg oral tablet (19 sources)Opioid AgonistStart: 60-73-0151WBMTJqkpcsw-acetaminophen ([place]) 5- 325 MG tablet 03/20/2024 Activeaspirin 81 mg delayed release oral tablet (20 sources)Platelet Aggregation Inhibitor, Nonsteroidal Anti-inflammatory Drug Start: 05-14-1441dplw 1 tablet by mouth once dailyASPIRIN 81 MG chewable tablet Chew 81 mg in the morning. ActiveB-D 3CC LUER-SAYRA SYR 23GX1 23G X 1 3 ML misc (19 sources)Start: 87-37-7680K-D 3CC LUER-SAYRA SYR 23GX1 23G X 1 3 ML misc USE 1 SYRINGE INTRAMUSCULARLY ONCE A WEEK 05/18/2023ctiveBiotin (20 sources)Start: 44-77-1203MFCHZG BIOTIN Start Date: 02/26/22 Status: Ordered Start: 26-74-0940oexh 1 tablet by mouth once dailycelecoxib 100 mg oral capsule (19 sources)Nonsteroidal Anti-inflammatory DrugCeleBREX 100 MG capsule 1 (one) time each day at the same time Activecholecalciferol 0.125 mg oral capsule (19 sources)Vitamin DStart: 33-78-1680prscifpswtekdzl (Vitamin D-3) 125 MCG (5000 UT) capsule 03/15/2024 ActiveclonazePAM 1 mg oral tablet (20 sources)BenzodiazepineStart: 03-27-2024 End: 00-88-0275icev 1 tablet by mouth at bedtimeclonazePAM (KlonoPIN) 1 MG tablet Indications: Primary insomnia Take 1 tablet (1 mg) by mouth at bedtime 30 tablet 2 07/04/2024 ActiveStart: 19-98-8914JdufjntNZD 0.5 mg Tab Refills(s) 0 Start Date: 02/26/22 Status: OrderedStart: 63-74-3276jjhd 2 tablets by mouth at bedtimeStart: 88-07-8472kpbh 1 mg by mouth at bedtimeClonazepam Active 0.05 mg/kg PO Bedtime May 14, 2018 12:00amdiazePAM 5 mg oral tablet (5 sources)BenzodiazepineStart: 18-44-4142ctud 1 tablet by mouth at bedtime diclofenac sodium 75 mg delayed release oral tablet (5 sources)Nonsteroidal Anti-inflammatory DrugStart: 85-43-1479vpxv 1 tablet by mouth twice dailydoxazosin 8 mg oral tablet (20 sources)alpha-Adrenergic BlockerStart: 16-90-7386zaudqkwqf 8 mg oral tablet Refills(s) 0 Start Date: 02/26/22 Status: Ordereddoxepin hydrochloride 10 mg oral capsule (20 sources)Tricyclic AntidepressantStart: 48-27-8852ehqqmck 10 mg Cap Refills(s) 0 Start Date: 02/26/22 Status: OrderedDULoxetine 60 mg delayed release oral capsule (19 sources)Serotonin and Norepinephrine Reuptake Inhibitortake 1 capsule by mouth in the morningDULoxetine (Cymbalta) [address] capsule Take 60 mg by mouth in the morning and 60 mg in the evening.Activeescitalopram 20 mg oral tablet (19 sources)Serotonin Reuptake Inhibitortake 1 tablet by mouth in the morning escitalopram (Lexapro) 20 MG tablet Take 20 mg by mouth in the morning. Active gabapentin 600 mg oral tablet (20 sources)Anti-epileptic AgentStart: 21-41-5976wczr 1 tablet by mouth three times dailyhydrOXYzine pamoate 25 mg oral capsule (19 sources)AntihistamineStart: 76-17-8365suca 1 capsule by mouth once daily at bedtimehydrOXYzine pamoate (Vistaril) 25 MG capsule Indications: Primary insomnia TAKE ONE CAPSULE BY MOUTH ONCE DAILY AT BEDTIME 30 capsule 11 05/11/2024 Activelisinopril 10 mg oral tablet (5 sources)Angiotensin Converting Enzyme InhibitorStart: 27-50-6340monb 1 tablet by mouth once dailymeclizine hydrochloride 25 mg chewable tablet (19 sources)AntiemeticMeclizine HCl 25 MG chewable tablet Chew 25 mg 1 (one) time each day at the same time. Activemelatonin 10 mg oral capsule (20 sources)Start: 07-14-2023 End: 19-32-6489ojds 1 capsule by mouth at bedtimeMelatonin 10 MG capsule Indications: Primary insomnia Take 10 mg by mouth at bedtime 90 capsule 3 07/04/2025 ActiveMultiple Vitamins-Minerals (Multi For Him 50+) tablet (19 sources)Multiple Vitamins-Minerals (Multi For Him 50+) tablet as directed Orally Activeomeprazole 40 mg delayed release oral capsule (5 sources)Proton Pump InhibitorStart: 05-83-2560inry 1 capsule by mouth twice dailyondansetron 4 mg oral tablet (20 sources)Serotonin-3 Receptor AntagonistStart: 11-14-2024 End: 11-03-7891rzvf 2 tablets by mouth every eight hours for nauseaondansetron (Zofran) 4 MG tablet Indications: Projectile vomiting with nausea Take 2 tablets (8 mg)by mouth every 8 (eight) hours if needed for nausea or vomiting 30 tablet 3 11/14/2024 12/14/2024 ActiveStart: 92-48-2463rokyebrwkxv ODT (Zofran-ODT) 4 MG disintegrating tablet 03/15/2024 ActiveStart: 69-98-3657igumsradojj (Zofran) 4 MG tablet Take 4 mg by mouth if needed. ActiveOXcarbazepine 300 mg oral tablet (19 sources)Anti-epileptic Agenttake 1 tablet by mouth at bedtimeOXcarbazepine (Trileptal) 300 MG tablet Take 300 mg by mouth at bedtime. Activeoxybates, calcium, magnesium, potassium and sodium, (Xywav) 500 MG/ML solution (2 sources)Start: 04-04-2025 End: 55-98-7459vmyv 3.75 g by mouth at bedtimeoxybates, calcium, magnesium, potassium and sodium, (Xywav) 500 MG/ML solution Indications: Narcolepsy cataplexy syndrome (HCC) Take 3.75 g by mouth at bedtime 225 mL 2 04/04/2025 05/04/2025 Activepotassium chloride 10 meq extended release oral tablet (19 sources)Start: 63-36-2031hwcm 1 tablet by mouth at mealtimepotassium chloride CR (Klor-Con) 10 MEQ ER tablet Take 10 mEq by mouth in the morning. Take with food. . 02/22/2023 Activesennosides, halfway 8.6 mg oral tablet (19 sources)Start: 65-59-6911luldl (Senokot) 8.6 MG tablet 03/15/2024 Active simvastatin 20 mg oral tablet (20 sources)HMG-CoA Reductase InhibitorStart: 51-67-9933xqrf 1 tablet by mouth once dailySUMAtriptan 100 mg oral tablet (20 sources)Serotonin-1b and Serotonin-1d Receptor AgonistStart: 14-64-4870rrks 1 tablet by mouth onceSUMAtriptan (Imitrex) 100 MG tablet Take 100 mg by mouth 1 (one) time if needed. Active1 ml testosterone cypionate 200 mg/ml injection (19 sources)Androgentestosterone cypionate (Depo-Testosterone) 200 MG/ML injection Inject 200 mg into the shoulder, thigh, or buttocks every 14 (fourteen) days. Activethiamine 100 mg oral tablet (15 sources)Start: 07-05-2024 End: 88-75-6733dvkw 1 tablet by mouth once dailythiamine (Vitamin B-1) 100 MG tablet Indications: Excessive daytime sleepiness Take 1 tablet (100 mg) by mouth Daily 30 tablet 11 07/05/2024 07/05/2025 ActivetiZANidine 4 mg oral capsule (20 sources)Central alpha-2 Adrenergic AgonistStart: 23-36-7484oddp 1 capsule by mouth at bedtimetake 1 tablet by mouth at bedtimetiZANidine (Zanaflex) 4 MG tablet Take 4 mg by mouth at bedtime. ActiveVit D3-Folic Bimk-R6-G9-B12 (1 source)Start: 26-39-7248wetj 1 tablet by mouth once dailyVit D3-Folic Tlpo-Y2-X0-B12 Active 1 TAB PO Daily May 14, 2018 12:00amVit D3-Folic Kion-B2-A0-B12 2,000-800-0.32 unit-mcg-mg Tablet (4 sources)Start: 98-15-5491cfwy 1 tablet by mouth once dailyStart: 05-14-2018 take 1 tablet by mouth once dailyVit D3-Folic Dzuw-A7-V5-B12 2,000-800-0.32 unit-mcg-mg Tablet Active 1 TAB PO Daily May 13, 2018 11:00pm Completed/Discontinued Medications MedicationDrug Class(es)DatesSig (Normalized)Sig (Original)amantadine hydrochloride 100 mg oral tablet (20 sources)Influenza A M2 Protein InhibitorStart: 05-07-2025 End: 61-01-4867Qqptzrdopb Hcl 100 mg tablet Discontinued MG PO May 07, 2025 12:00amStart: 04-10-2024 End: 43-45-0479xrtj 1 tablet by mouth in the morningamantadine (Symmetrel) 100 MG tablet Indications: Excessive daytime sleepiness , Primary insomnia Take 1 tablet (100 mg) by mouth in the morning and at noon 180 tablet 3 04/10/2024 04/10/2025 Activeapixaban 5 mg oral tablet (3 sources)Factor Xa InhibitorStart: 57-65-7665Jxyyztvw (Eliquis) 5 mg tablet Discontinued MG PO May 07, 2025 12:00amcarvedilol 25 mg oral tablet (20 sources)alpha-Adrenergic Jorge L, beta-Adrenergic BlockerStart: 02-26-2022 Carvedilol 25 mg tablet Discontinued MG PO May 07, 2025 12:00amStart: 98-54-3346pyge 1 tablet by mouth twice dailycitalopram 40 mg oral tablet (20 sources)Serotonin Reuptake InhibitorStart: 23-44-9830Ckwvgfdfrz 40 mg tablet Discontinued MG PO May 07, 2025 12:00amStart: 33-88-2747SerpGL 20 MG tablet 1 (one) time each day at the same time. 06/02/2023 Activefurosemide 20 mg oral tablet (20 sources)Loop DiureticStart: 34-88-9536Binogutvlm 20 mg tablet Discontinued MG PO May 07, 2025 12:00amglycopyrrolate 1 mg oral tablet (20 sources)Start: 53-14-5339Gpqkidwuhxzovt 1 mg tablet Discontinued MG PO May 07, 2025 12:00amStart: 65-45-9486jgxkfeaijljoyj 1 mg oral tablet Refills(s) 0 Start Date: 02/26/22 Status: Orderedmodafinil 200 mg oral tablet (20 sources)Sympathomimetic-like AgentStart: 05-07-2025 End: 91-58-0819Mnlwgbsqw 200 mg tablet Discontinued MG PO May 07, 2025 12:00amStart: 04-10-2024 End: 23-18-7183hltq 1 tablet by mouth in the morningmodafinil (Provigil) 200 MG tablet Indications: Excessive daytime sleepiness , Obstructive sleep apnea Take 1 tablet (200 mg) by mouth in the morning and at noon 180 tablet 01/03/2025 ActiveStart: 35-93-0218frkbhfgqf 200 mg Tab Refills(s) 0 Start Date: 02/26/22 Status: Orderedpantoprazole 40 mg delayed release oral tablet (20 sources)Proton Pump InhibitorStart: 35-17-7694Ibmijwbudhci 40 mg tablet,delayed release (DR/EC) Discontinued MG PO May 07, 2025 12:00am Problems Active Problems Problem ClassificationProblemDateDocumented DateEpisodic/ChronicAnxiety disorders (20 sources)Anxiety disorder, unspecified; Translations: [Anxiety disorder] Onset: 643400-73-7685RrdwdhdYqjdmoock and vision defects (1 source)Unspecified visual loss; Translations: [UNSPECIFIED VISUAL LOSS]Onset: 21-33-0985SodyzadOnrvbwgvei heart failure; nonhypertensive (20 sources)Chronic combined systolic and diastolic heart failure; Translations: [Chronic combined systolic (congestive) and diastolic (congestive) heart failure]Onset: 430935-45-2568JrdktamDlblwosi, dementia, and amnestic and other cognitive disorders (19 sources)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; Translations: [Unspecified mental disorder due to known physiological condition]Onset: 325259-23-6228QpkhilpEhssgfuj mellitus without complication (20 sources)Type 2 diabetes mellitus without complications; Translations: [Diabetes mellitus without complication]Onset: hronic Disorders of lipid metabolism (1 source)Pure hypercholesterolemia, unspecified; Translations: [PURE HYPERCHOLESTEROLEMIA UNSPEC]Onset: 77-73-8021ZdgyyryB Codes: Place of occurrence (2 sources)Unspecified place in unspecified non-institutional (private) residence as the place of occurrence of the external cause; Translations: [Unspecified place in unspecified non-institutional (private) residence as the place of occurrence of the external cause]Onset: 06-09-0298UnxcejxmMtzlcksiid disorders (1 source)Gastro-esophageal reflux disease without esophagitis; Translations: [GERD WITHOUT ESOPHAGITIS]Onset: 96-44-7235NkrzoioZwwjsvlfe hypertension (20 sources)Essential (primary) hypertension; Translations: [Hypertensive disorder]Onset: 333787-68-0330HxsimxgXxqowgkf of lower limb (20 sources)Unspecified fracture of shaft of right tibia, initial encounter for closed fracture; Translations: [Unspecified fracture of shaft of right fibula, initial encounter for closed fracture]Onset: 00-67-3142VhdypcgtKltvmick; including migraine (20 sources)Migraine; Translations: [Migraine, unspecified, not intractable, without status migrainosus]Onset: 419420-38-0640NxglhryRpexbzzuusa of prostate (1 source)Benign prostatic hypertrophy without outflow obstruction; Translations: [Benign prostatic hyperplasia without lower urinary tract symptoms]Onset: 49-58-5513DfltgyqRrgcdfotpibo with complications and secondary hypertension (12 sources)Hypertensive heart failure; Translations: [Hypertensive heart disease with heart failure]Onset: 588286-70-6257BglmptbCqdbjhdijuktv mental health disorders (20 sources)Primary insomnia; Translations: [Primary insomnia]Onset: 03-11-2023 31-69-3932HhqkflhRmfn disorders (1 source)Major depressive disorder, single episode, unspecified; Translations: [MARITZA DEPRESS D/O SINGLE EPIS UNS]Onset: 61-15-6696BvdmdnyJqwt disorders (1 source)Mood disorders; Translations: [DEPRESSION UNSPECIFIED]Onset: 85-75-7912Drbtqb and vomiting (1 source)Projectile vomiting; Translations: [Projectile vomiting]11-14-2024 EpisodicOsteoarthritis (20 sources)Unspecified osteoarthritis, unspecified site; Translations: [Arthritis of right acromioclavicular joint]Onset: hronic Other aftercare (1 source)care home (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; Translations: [INVERTED BLOCK OPERATOR 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 ASPIRIN]Onset: 63-22-8987GwpzjouuQjyni aftercare (1 source)Other rn long term care (current) drug therapy; Translations: [OTH DETENTION CURRENT DRUG THERAPY]Onset: 33-05-1134ZgdrfhbrCjrll bone disease and musculoskeletal deformities (3 sources)Hypertrophy of bone; Translations: [Hypertrophy of bone, unspecified tibia and fibula]08-96-0653ZbkulqmaRyzhs bone disease and musculoskeletal deformities (1 source)Hypertrophy of bone, unspecified tibia and fibula; Translations: [Hypertrophy of bone, unspecified tibia and fibula]Onset: 06-37-1965Jexgasan Other connective tissue disease (3 sources)Pain in right forearm; Translations: [PAIN IN RIGHT FOREARM]Onset: 66-30-4357DnfcpowzUizyf connective tissue disease (1 source)Arthrodesis status; Translations: [ARTHRODESIS STATUS]Onset: 06-73-9685FosjxefpYkafl connective tissue disease (2 sources)Muscle weakness of upper limb; Translations: [Other symptoms and signs involving the musculoskeletal system]25-89-1496XkrypxmuQyrzqts on above: Problem List clean-up per request of Phys. EHR CmteOther connective tissue disease (20 sources)Other symptoms and signs involving the musculoskeletal system; Translations: [Other musculoskeletalsymptoms referable to limbs]Onset: 302955-08-3940KanjlhguZtszdiz on above:Problem List clean-up per request of Phys. EHR CmteOther connective tissue disease (3 sources)Pain in right lower limb; Translations: [Pain in right leg]05-07-2025 EpisodicOther diseases of veins and lymphatics (1 source)Varicocele; Translations: [Scrotal varices]Onset: 79-71-1237Ttimrpbq Other ear and sense organ disorders (1 source)Unspecified hearing loss, unspecified ear; Translations: [UNS HEARING LOSS UNSPECIFIED EAR]Onset: 90-75-5725DwfriqsUywnc endocrine disorders (4 sources)Testicular hypofunction; Translations: [TESTICULAR HYPOFUNCTION] Onset: 48-07-6032ZkobczzVomxi inflammatory condition of skin (1 source)Psoriasis, unspecified; Translations: [PSORIASIS UNSPECIFIED]Onset: 23-43-1140McxqfuaKsyik injuries and conditions due to external causes (1 source)Unspecified injury of head, initial encounter; Translations: [UNSPECIFIED INJURY HEAD INITIAL ENC]Onset: 07-83-0949SzqsajtcFxcqn male genital disorders (19 sources)Secondary erectile dysfunction; Translations: [Male erectile dysfunction, unspecified]Onset: 473204-83-5105VgrsdriGovex male genital disorders (1 source)Hydrocele of testis; Translations: [Hydrocele, unspecified]Onset: 67-82-3382LygluborRheuy nervous system disorders (1 source)Narcolepsy without cataplexy; Translations: [NARCOLEPSY WITHOUT CATAPLEXY]Onset: 08-80-2730CnanxkgXenqn nervous system disorders (1 source)Other chronic pain; Translations: [OTHER CHRONIC PAIN]Onset: 89-11-3005YfhlepmUzzfo nervous system disorders (1 source)Polyneuropathy, unspecified; Translations: [POLYNEUROPATHY UNSPECIFIED]Onset: 11-08-2025HycsmedAtuzd nervous system disorders (19 sources)Carpal tunnel syndrome of right wrist; Translations: [Carpal tunnel syndrome, right upper limb]Onset: 886787-01-8368RyafzthXagnn nervous system disorders (20 sources)Lesion of ulnar nerve, right upper limb; Translations: [Lesion of ulnar nerve]Onset: 757723-86-5291BzbwvndQdttp nervous system disorders (19 sources)Chronic pain; Translations: [Other chronic pain]Onset: 12-30-2017 23-66-8765CaamcxcBisgf nervous system disorders (19 sources)Ulnar nerve entrapment; Translations: [Lesion of ulnar nerve, unspecified upper limb]Onset: 174618-69-7790YtfdetoWzbuj nervous system disorders (20 sources)Cataplexy and narcolepsy; Translations: [Narcolepsy with cataplexy] Onset: 379341-19-3711MzwsjsxRrlrt nervous system disorders (20 sources)Numbness of upper limb; Translations: [Anesthesia of skin]Onset: 471881-16-1947TtjwernxEdgqqqo on above:Problem List clean-up per request of Phys. EHR CmteOther nutritional; endocrine; and metabolic disorders (12 sources)Obesity; Translations: [Obesity, unspecified]Onset: 09-24-2024 27-32-4883KauwvzpMnkx-; endo-; and myocarditis; cardiomyopathy (except that caused by tuberculosis or sexually transmitted disease) (12 sources)Cardiomyopathy; Translations: [Other cardiomyopathies]Onset: 462676-50-5475NzwfhrsYngoyatc codes; unclassified (1 source)Sleep apnea, unspecified; Translations: [SLEEP APNEA UNSPECIFIED] Onset: 04-95-3451BvxcsqlCipvwbah codes; unclassified (20 sources)Daytime somnolence; Translations: [Other hypersomnia]Onset: 856505-42-3177WhsbuaqDkryolhi codes; unclassified (20 sources)Obstructive sleep apnea syndrome; Translations: [Obstructive sleep apnea (adult) (pediatric)]Onset: 709959-64-6136YbtjzpeTocgjdoo codes; unclassified (2 sources)Obstructive sleep apnea (adult) (pediatric); Translations: [Obstructive sleep apnea (adult) (pediatric)]Onset: 55-57-4956Fxyzvzh Spondylosis; intervertebral disc disorders; other back problems (20 sources)Cervical disc disorder; Translations: [Cervical disc disorder, unspecified, unspecified cervical region]Onset: hronic Spondylosis; intervertebral disc disorders; other back problems (20 sources)Cervical disc prolapse with radiculopathy; Translations: [Cervical disc disorder with radiculopathy, unspecified cervical region]Onset: 10-11-2018 00-64-0383IsdftlyuKrbyzhh on above:Problem List clean-up per request of Phys. EHR CmteSuperficial injury; contusion (2 sources)Contusion of right forearm, initial encounter; Translations: [Contusion of other part of head, initial encounter]Onset: 51-05-7486Lfxccxyo Unclassified (1 source)CONTACT W/AND (SUSP) EXPOS COVID-19; Translations: [CONTACT W/AND (SUSP) EXPOS COVID-19]Onset: 01-19-2022 Past or Other Problems Problem ClassificationProblemDateDocumented DateEpisodic/ChronicComa; stupor; and brain damage (19 sources)Clouded consciousness; Translations: [Stupor]Onset: 03-03-2012 26-44-4151UxfouselW Codes: Fall (15 sources)Unspecified fall, initial encounter; Translations: [Fall in home] Onset: 40-73-2487PnchntpiT Codes: Natural/environment (1 source)Exposure to other specified factors, initial encounter; Translations: [EXPOSURE OTHER SPEC FACTORS INITIAL]Onset: 90-50-8896EggaozdpJcxpesdke and duodenitis (19 sources)Gastritis; Translations: [Gastritis, unspecified, without bleeding] Onset: 763032-81-0823XhtolyblKgosf valve disorders (19 sources)Systolic murmur; Translations: [Cardiac murmur, unspecified]Onset: 818825-01-8117SvwyuwfvYpqwljajklzkh and screening for infectious disease (1 source)Encounter for immunization; Translations: [ENCOUNTER FOR IMMUNIZATION] Onset: 14-61-0347WwklxjlsYmimbkypvmqp conditions of male genital organs (4 sources)Inflammatory disorders of scrotum; Translations: [INFLAMMATORY DISORDERS OF SCROTUM]Onset: 54-70-1699WthxjhgdCyyuzfd and fatigue (19 sources)Fatigue; Translations: [Other fatigue]Onset: EpisodicNoninfectious gastroenteritis (19 sources)Gastroenteritis; Translations: [Noninfective gastroenteritis and colitis, unspecified]Onset: 297325-75-0110BvbpfoxtImnklphzegy chest pain (20 sources)Chest discomfort; Translations: [Other chest pain]Onset: 11-30-2011 19-12-6485BeyhulroQhnc wounds of extremities (16 sources)Puncture wound without foreign body, left foot, initial encounter; Translations: [Open wound of left great toe]Onset: 18-48-1212CjxupifuWgapu circulatory disease (19 sources)Capillary hemangioma; Translations: [Nevus, non-neoplastic]Onset: 841359-17-9604IyiczoneLkybu connective tissue disease (20 sources)Spasm of cervical paraspinous muscle; Translations: [Other muscle spasm]Onset: 564856-21-4667UozdvfnhSecgc connective tissue disease (19 sources)Bursitis; Translations: [Bursopathy, unspecified]Onset: 02-27-2011 01-39-9671HzxepqqmSeltv connective tissue disease (19 sources)Foot pain; Translations: [Pain in unspecified foot]Onset: 10-07-2012 01-81-9625YjqxrhqlHumrw connective tissue disease (19 sources)Muscle pain; Translations: [Myalgia, unspecified site]Onset: 477477-86-5487KubmptamAircl connective tissue disease (19 sources)Impingement syndrome of shoulder region; Translations: [Impingement syndrome of unspecified shoulder]Onset: 513271-42-1286DkvcuvdgAudky connective tissue disease (19 sources)Lateral epicondylitis; Translations: [Lateral epicondylitis, unspecified elbow]Onset: 239878-04-3585MypzznthGpkon lower respiratory disease (19 sources)Dyspnea; Translations: [Dyspnea, unspecified]Onset: 11-30-2011 29-66-5117KwbwpmqtLhsqx non-traumatic joint disorders (19 sources)Ankle edema; Translations: [Effusion, unspecified ankle]Onset: 906626-16-2801TbcnfizuNfdji non-traumatic joint disorders (19 sources)Joint pain; Translations: [Pain in unspecified joint]Onset: 007412-46-6228PauraeycQdefd screening for suspected conditions (not mental disorders or infectious disease) (20 sources)Encounter for screening for malignant neoplasm of prostate; Translations: [Elevated prostate specific antigen [PSA]]Onset: 03-13-2022 EpisodicOther skin disorders (19 sources)Excessive sweating; Translations: [Generalized hyperhidrosis]Onset: 216280-07-8742WwtkmqzgNonrw skin disorders (19 sources)Senile hyperkeratosis; Translations: [Actinic keratosis]Onset: 269957-98-8340CsiyeafmMwhdj skin disorders (19 sources)Hyperhidrosis; Translations: [Generalized hyperhidrosis]Onset: 146293-32-1302PqftkymmOjcew upper respiratory infections (19 sources)Upper respiratory infection; Translations: [Acute upper respiratory infection, unspecified]Onset: 239392-49-7884AsnlbcglFnwr and subcutaneous tissue infections (20 sources)Cellulitis; Translations: [Cellulitis, unspecified]Onset: 03-31-2013 55-19-2019XtxqccneIqtburu tract infections (19 sources)Urinary tract infectious disease; Translations: [Urinary tract infection, site not specified]Onset: 228475-77-6774Jbufucva Results Test NameValueInterpretationReference RangeFacilityCT lower leg RT wo conon 25-75-3713SF lower leg RT wo [facility] [place] [address] CT Scan Report Signed Patient: Matty Garces MR#: [id number] : 1970 Acct:[id number] Age/Sex: 54 / M ADM Date: 05/29/25 Loc: CT Room: Type: [facility] Attending Dr: Jameel Coats DO Copies to: [...] Irving M.D. 05/29/2025 11:40 PM Dictation Location: [place] [address] Transcribed By: [facility] 05/29/25 6980 Dictated By: Francis Irving II, MD 05/29/25 0357 Signed By: 05/29/25 250[facility] GroupECG 12-LEADon 45-50[place], [place] [address] Electrocardiograph Report Signed Patient: MATTY GARCES MR#: [id number] : 1970 Acct:[id number] Age/Sex: 54 / M ADM Date: 03/05/25 Loc: [place] 221-[address]: Venus Jaeger M.D. Ordering Physician: Jess Castañeda Date of Service: 03/05/25 Procedure(s): ECG 12 lead Accession Number(s): [id number] cc: [facility] Test Date: 2025-03-05 Pat Name: MATTY GARCES Department: Room: - Gender: Male Commissions Manager: : 1970 Requested By: 0923 Order Number: [id number] Reading MD: RAMIRO WALLS M.D. Measurements Intervals [place] Rate: 76 P: 60 MS: 178 QRS: 69 QRSD: 100 T: 46 QT: 406 QTc: 437 Interpretive Statements 1100 Sinus rhythm 0102 ARTIFACT PRESENT 9110 normal ECG Compared to ECG 09/23/2024 05:51:07 No significant changes Electronically Signed On 03-06-2025 9:29:34 EDT by RAMIRO WALLS M.D. Dictated By: RAMIRO WALLS Signed By: 03/06/25928 DD/ 06 TD/TT: Retail Store Clerk:TBHRadiology, Radiologist, - 03/06/2025 [place] [address] Electrocardiograph Report Signed Patient: MATTY GARCES MR#: [id number] : 1970 Acct:[id number] Age/Sex: 54 / M ADM Date: 03/05/25 Loc: [place] 221-[address]: Venus Jaeger M.D. Ordering Physician: Jess Castañeda Date of Service: 03/05/25 Procedure(s): ECG 12 lead Accession Number(s): [id number] cc: [facility] Test Date: 2025-03-05 Pat Name: MATTY GARCES Department: Room: - Gender: Male Commissions Manager: : 1970 Requested By: 0923 Order Number: [id number] Reading MD: RAMIRO WALLS M.D. Measurements Intervals [place] Rate: 76 P: 60 MS: 178 QRS: 69 QRSD: 100 T: 46 QT: 406 QTc: 437 Interpretive Statements 1100 Sinus rhythm 0102 ARTIFACT PRESENT 9110 normal ECG Compared to ECG 09/23/2024 05:51:07 No significant changes Electronically Signed On 03-06-2025 9:29:34 EDT by RAMIRO WALLS M.D. Dictated By: RAMIRO WALLS Signed By: 03/06/25928 DD/ 06 TD/TT: Retail Store Clerk: JEWLES Packer 12-LEADOrdered By: Radiologist Radiology on 25-58-4413[facility] Work Phone: ECG 12-LEADon 91-23-8447Vecdyehkg Study observation (narrative)JEWELS [facility] JacksonBASIC METABOLIC PANELon 28-17-3338Gswab gap [Moles/Vol]8 mmol/LNormal7-20UnKettering Health PrebleComment on above:Performed By: #### [id number] #### [facility] ([facility]) [address] [place], [place] [address]Lmsarkk [Mass/Vol]9.7 mg/dLNormal8.6-10.3UnKettering Health PrebleComment on above:Performed By: #### [id number] #### [facility] ([facility]) [address] [place], [place] [address]Bqzytjhq [Moles/Vol]97 mmol/QOhx02-013XelpfdvvmpKettering Health PrebleComment on above:Performed By: #### [id number] #### [facility] ([facility]) [address] [place], [place] [address]NA5 [Moles/Vol]35 mmol/TEixp57-15ZolrqmjrecKettering Health PrebleComment on above:Performed By: #### [id number] #### [facility] ([facility]) [address] [place], [place] [address]Vknfhlomng [Mass/Vol]1.02 mg/dLNormal0.70-1.30UnKettering Health PrebleComment on above:Performed By: #### [id number] #### [facility] ([facility]) [address] [place] [address]EANGRNVGGJ FILTRATION RATE ML/MIN/1.73 SQ M.CEGGAEOPL74.8 mL/min/1.73m*2Normal>60.0UnKettering Health PrebleComment on above: Result Comment: [facility]???s estimated glomerular filtration rate (eGFR) [...] potential consequences that do not disproportionately affect anyone group of individuals.Performed By: #### [id number] #### [facility] ([facility]) [address] [place], [place] [address]Tmrftat [Mass/Vol]80 mg/xSKfhxwb70-968SgvgjgxmeaKettering Health PrebleComment on above:Performed By: #### [id number] #### [facility] ([facility]) [address] [place] [address]Xujpxrmqm [Moles/Vol]4.2 mmol/LNormal3.5-5.1UnKettering Health PrebleComment on above:Performed By: #### [id number] #### [facility] ([facility]) [address] [place], [place] [address]Fhytvb [Moles/Vol]136 mmol/AAgzyte886-513OwliqghuluKettering Health PrebleComment on above:Performed By: #### [id number] #### [facility] ([facility]) [address] [place], [place] [address]Xgwf nitrogen [Mass/Vol]8 mg/dLNormal7-25UnKettering Health PrebleComment on above:Performed By: #### [id number] #### [facility] ([facility]) [address] [place], [place] [address]LDQV NITROGEN/CREATININE (MASS RATIO) IN SER/PLAS7.8Normal [facility] Medical CenterComment on above:Performed By: #### [id number] #### [facility] ([facility]) [address] [place] [address]RPS WITH AUTO DIFFERENTIALon 89-02-2463Jzpxvkeby (Bld) [#/Vol] 0.06 10*3/uLNormal0.00-0.20UnKettering Health PrebleComment on above: Performed By: #### [id number] ####[facility] ([facility])[address] [place] [address]Rjjqlndnx/100 WBC (Bld)0.9 %Normal0.0-1.0UnKettering Health PrebleComment on above:Performed By: #### [id number] ####[facility] ([facility])[address] [place], [place] [address]Tpjtoexovzq (Bld) [#/Vol]0.21 10*3/uL Normal0.00-0.50UnKettering Health PrebleComment on above:Performed By: #### [id number] ####[facility] ([facility])[address] [facility] [place] [address] Eosinophils/100 WBC (Bld)3.0 %Normal0.0-6.0UnKettering Health Preble Comment on above:Performed By: #### [id number] ####[facility] ([facility])[address] [place], [place] [address]Tfwmxvsuzvi distribution width (RBC) [Ratio]16.7 % High11.5-15.0UnKettering Health PrebleComment on above:Performed By: #### [id number] ####[facility] ([facility])[address] [place] [address] ERYTHROCYTE MEAN CORPUSCULAR HEMOGLOBIN CONCENTRATION (G/DL) BY MJAVITYLL04.9 g/dLLow32.0-35.0UnKettering Health PrebleComment on above:Performed By: #### [id number] ####[facility] ([facility])[address] [facility] [place] [place] [address]Mihtfjndje (Bld) [Volume fraction]44.5 %Htfjzs62.0-55.0UnKettering Health PrebleComment on above:Performed By: #### [id number] ####[facility] ([facility])[address] [place] [address]Kvvuaqpkba (Bld) [Mass/Vol]13.3 g/dL Gqoiqg79.0-17.0UnKettering Health PrebleComment on above:Performed By: #### [id number] ####[facility] ([facility])[address] [place] [address] Immature granulocytes (Bld) [#/Vol]0.11 10*3/uLNormal0.00-0.20UnKettering Health PrebleComment on above:Performed By: #### [id number] ####[facility] ([facility])[address] [place] [address]Zpfzqhsn granulocytes/100 WBC (Bld)1.6 %High0.0-1.0UnKettering Health PrebleComment on above: Performed By: #### [id number] ####[facility] ([facility])[address] [place] [address]Bhfuqhefihi (Bld) [#/Vol]0.91 10*3/uLLow1.20-4.00UnKettering Health PrebleComment on above:Performed By: #### [id number] ####[facility] ([facility])[address] [place] [address]Jvofeivmiju/100 WBC (Bld) 12.9 %Low20.0-45.0UnKettering Health PrebleComment on above:Performed By: #### [id number] ####[facility] [place], [place] [address]QGB (RBC) [Entitic mass]26.9 pgLow27.0-33.0UnKettering Health PrebleComment on above:Performed By: #### [id number] ####[facility] ([facility])[address] [place] [address]TJG (RBC) [Entitic vol]89.9 fLNormal 82.0-98.0UnKettering Health PrebleComment on above:Performed By: #### [id number] ####[facility] ([facility])[address] [place] [address] Monocytes (Bld) [#/Vol]0.65 10*3/uLNormal0.10-1.00UnKettering Health PrebleComment on above:Performed By: #### [id number] ####[facility] ([facility])[address] [place], [place] [address]Ztupplstw/100 WBC (Bld)9.2 %Normal 5.0-12.0UnKettering Health PrebleComment on above:Performed By: #### [id number] ####[facility] ([facility])[address] [place] [address] Neutrophils (Bld) [#/Vol]5.11 10*3/uLNormal1.60-7.60UnKettering Health PrebleComment on above:Performed By: #### [id number] ####[facility] ([facility])[address] [place], [place] [address]Pstltzqaerd/100 WBC (Bld)72.4 %High 40.0-72.0UnKettering Health PrebleComment on above:Performed By: #### [id number] ####[facility] ([facility])[address] [place] [address]AFVS (PER 100 WBCS) BY AUTOMATED COUNT0.0 %Necbge5EmdqszbkrrKettering Health Preble Comment on above:Performed By: #### [id number] ####[facility] ([facility])[address] [place], [place] [address]JCIXDMGXO (10*3/UL) IN BLOOD AUTOMATED CEZLW367 10*3/yIYcgaaz461-029MnavpuqtwkKettering Health PrebleComment on above: Performed By: #### [id number] ####[facility] ([facility])[address] [place], [place] [address]XIY (Bld) [#/Vol]4.95 10*6/uLNormal4.20-5.70UnKettering Health PrebleComment on above:Performed By: #### [id number] ####[facility] ([facility])[address] [place] [address]GLB (Bld) [#/Vol]7.05 10*3/uLNormal4.00-10.60UnKettering Health PrebleComment on above: Performed By: #### [id number] ####[facility] ([facility])[address] [place] [address]QKSSB METABOLIC PANELon 38-48-2581Crjdl gap [Moles/Vol]9 mmol/LNormal7-20UnKettering Health PrebleComment on above:Performed By: #### [id number] #### [facility] ([facility]) [address] [place], [place] [address]Acueoyw [Mass/Vol]9.5 mg/dLNormal8.6-10.3UnKettering Health PrebleComment on above:Performed By: #### [id number] #### [facility] ([facility]) [address] [place], [place] [address]Jtwbxoxf [Moles/Vol]96 mmol/XMki37-917RspdzggnpzKettering Health PrebleComment on above:Performed By: #### [id number] #### [facility] ([facility]) [address] [place], [place] [address]KI8 [Moles/Vol]34 mmol/LZmwa58-13NhtnwygomcKettering Health PrebleComment on above:Performed By: #### [id number] #### [facility] ([facility]) [address] [place], [place] [address]Iszpvrqycb [Mass/Vol]0.93 mg/dLNormal0.70-1.30UnKettering Health PrebleComment on above:Performed By: #### [id number] #### [facility] ([facility]) [address] [place], [place] [address]RGNIZSWJAA FILTRATION RATE ML/MIN/1.73 SQ M.DEOUWBRSW21.0 mL/min/1.73m*2Normal>60.0UnKettering Health PrebleComment on above: Result Comment: [facility]???s estimated glomerular filtration rate (eGFR) [...] potential consequences that do not disproportionately affect anyone group of individuals.Performed By: #### [id number] #### [facility] ([facility]) [address] [place], [place] [address]Lzxngit [Mass/Vol]85 mg/bAJxvvzi92-921QrnytazxcmKettering Health PrebleComment on above:Performed By: #### [id number] #### [facility] ([facility]) [address] [place], [place] [address]Bmvoyeisw [Moles/Vol]4.0 mmol/LNormal3.5-5.1UnKettering Health PrebleComment on above:Performed By: #### [id number] #### [facility] ([facility]) [address] [place], [place] [address]Uedcjk [Moles/Vol]135 mmol/QExc106-708MqcgppepnlKettering Health PrebleComment on above:Performed By: #### [id number] #### [facility] ([facility]) [address] [place], [place] [address]Syee nitrogen [Mass/Vol]8 mg/dLNormal7-25UnKettering Health PrebleComment on above:Performed By: #### [id number] #### [facility] ([facility]) [address] [place], [place] [address]GOQR NITROGEN/CREATININE (MASS RATIO) IN SER/PLAS8.6Normal [facility] CenterComment on above:Performed By: #### [id number] #### [facility] ([facility]) [address] [place] [place], [place] [address]G-XRQOMHVU PROTEINon 10-10-2024 REACTIVE PROTEIN (MG/L) IN SER/PLAS11.5 mg/LHigh<=5.0UnKettering Health PrebleComment on above: Result Comment: Testing performed using a new methodology, turbidimetry. Normal ranges have been updated. Old normal range was <8 mg/L.Performed By: #### [id number] #### [facility] ([facility]) [address] [place], [place] [address]HTV WITH AUTO DIFFERENTIALon 01-40-6107Vkvlsxdew (Bld) [#/Vol] 0.08 10*3/uLNormal0.00-0.20UnKettering Health PrebleComment on above: Performed By: #### [id number] ####[facility] ([facility])[address] [place], [place] [address]Xsqgzltqp/100 WBC (Bld)1.1 %High0.0-1.0UnKettering Health PrebleComment on above:Performed By: #### [id number] ####[facility] ([facility])[address] [place], [place] [address]Jpzctioaqdo (Bld) [#/Vol]0.19 10*3/uL Normal0.00-0.50UnKettering Health PrebleComment on above:Performed By: #### [id number] ####[facility] ([facility])[address] [place] [address] Eosinophils/100 WBC (Bld)2.7 %Normal0.0-6.0UnK[facility] Preble Comment on above:Performed By: #### [id number] ####[facility] ([facility])[address] [place], [place] [address]Siylxauayqh distribution width (RBC) [Ratio]16.6 % High11.5-15.0UnKettering Health PrebleComment on above:Performed By: #### [id number] ####[facility] ([facility])[address] [place] [address] ERYTHROCYTE MEAN CORPUSCULAR HEMOGLOBIN CONCENTRATION (G/DL) BY YOGJXLHEC34.1 g/dLLow32.0-35.0UnKettering Health PrebleComment on above:Performed By: #### [id number] ####[facility] ([facility])[address] [place] [address]Wrygdmzywz (Bld) [Volume fraction]44.5 %Vqcfax21.0-55.0UnKettering Health PrebleComment on above:Performed By: #### [id number] ####[facility] ([facility])[address] [place] [address]Ceooisyqfw (Bld) [Mass/Vol]13.4 g/dL Tcyoxq82.0-17.0UnKettering Health PrebleComment on above:Performed By: #### [id number] ####[facility] ([facility])[address] [place] [address] Immature granulocytes (Bld) [#/Vol]0.10 10*3/uLNormal0.00-0.20UnKettering Health PrebleComment on above:Performed By: #### [id number] ####[facility] ([facility])[address] [place], [place] [address]Qtbirxvr granulocytes/100 WBC (Bld)1.4 %High0.0-1.0UnKettering Health PrebleComment on above: Performed By: #### [id number] ####[facility] ([facility])[address] [place], [place] [address]Npmlvkctmzl (Bld) [#/Vol]0.90 10*3/uLLow1.20-4.00UnKettering Health PrebleComment on above:Performed By: #### [id number] ####[facility] ([facility])[address] [place], [place] [address]Ggqspchdgeq/100 WBC (Bld) 12.8 %Low20.0-45.0UnKettering Health PrebleComment on above:Performed By: #### [id number] ####[facility] ([facility])[address], [place] [address]PIL (RBC) [Entitic mass]26.9 pgLow27.0-33.0UnKettering Health PrebleComment on above:Performed By: #### [id number] ####[facility] ([facility])[address] [place], [place] [address]ANU (RBC) [Entitic vol]89.4 fLNormal 82.0-98.0UnKettering Health PrebleComment on above:Performed By: #### [id number] ####[facility] ([facility])[address] [facility] [place] [address] Monocytes (Bld) [#/Vol]0.60 10*3/uLNormal0.10-1.00UnKettering Health PrebleComment on above:Performed By: #### [id number] ####[facility] ([facility])[address] [place] [place], [place] [address]Pypcwzhng/100 WBC (Bld)8.5 %Normal 5.0-12.0UnKettering Health PrebleComment on above:Performed By: #### [id number] ####[facility] ([facility])[address] [facility] [place] [address] Neutrophils (Bld) [#/Vol]5.17 10*3/uLNormal1.60-7.60UnKettering Health PrebleComment on above:Performed By: #### [id number] ####[facility] ([facility])[address] [facility], [place] [address]Zzhkbryqsdv/100 WBC (Bld)73.5 %High 40.0-72.0UnKettering Health PrebleComment on above:Performed By: #### [id number] ####[facility] ([facility])[address] [place], [place] [address]TKAA (PER 100 WBCS) BY AUTOMATED COUNT0.0 %Tbohlk7VdsvejivilKettering Health Preble Comment on above:Performed By: #### [id number] ####[facility] ([facility])[address] [place] [address]XSKDYCVWL (10*3/UL) IN BLOOD AUTOMATED LHVCO600 10*3/dXBkukwx835-482ClbdimnoypKettering Health PrebleComment on above: Performed By: #### [id number] ####[facility] ([facility])[address] [place] [address]EYL (Bld) [#/Vol]4.98 10*6/uLNormal4.20-5.70UnKettering Health PrebleComment on above:Performed By: #### [id number] ####[facility] ([facility])[address] [place] [address]ERW (Bld) [#/Vol]7.04 10*3/uLNormal4.00-10.60UnKettering Health PrebleComment on above: Performed By: #### [id number] ####[facility] ([facility])[address] [address]CBMAJFATBPRTU RATEon 29-00-5949YZXTEDZXUUOOS RATE, JFDSYTHGDGQ03 mm/hrHigh<20UnKettering Health PrebleComment on above: Performed By: #### [id number] #### [facility] ([facility]) [address] [place] [address]EEKUPWFHUM, PEAKon 71-04-2326QYRGGUBGSI (UG/ML) IN SER/PLAS - PEAK23.0 ug/oONiifzn96.0-50.0UnKettering Health PrebleComment on above:Performed By: #### [id number] #### [facility] ([facility]) [address] [place] [address]MDGURJUTKI, TROUGHon 57-55-1640LLDCRESWIP (UG/ML) IN SER/PLAS - OAEPYT36.2 ug/mLNormal5.0-20.0UnKettering Health PrebleComment on above:Performed By: #### [id number] #### [facility] ([facility]) [address] [place] [address]46xn 62-80-763042Cflll with facility and patient was admitted back here at [facility] yesterday. They will call back if they need any orders.NormalUnKettering Health Preble BASIC METABOLIC PANELon 56-22-8671Hmblk gap [Moles/Vol]9 mmol/LNormal7-20 [facility] CenterComment on above:Performed By: #### [id number] ####[facility] ([facility])[address] [place] [address]Bvhjczz [Mass/Vol]9.4 mg/dLNormal8.6-10.3UnKettering Health PrebleComment on above:Performed By: #### [id number] ####[facility] ([facility])[address] [place] [address]Zivzqbnu [Moles/Vol]96 mmol/XCyp69-088XmtcwcdvtgKettering Health PrebleComment on above:Performed By: #### [id number] ####[facility] ([facility])[address] [place] [address]AY5 [Moles/Vol]36 mmol/CVaql45-38 [facility] CenterComment on above:Performed By: #### [id number] ####[facility] ([facility])[address] [place], [place] [address]Qlymvnyrgk [Mass/Vol]0.98 mg/dLNormal0.70-1.30UnKettering Health PrebleComment on above:Performed By: #### [id number] ####[facility] ([facility])[address] [place], [place] [address]SYQFJIBSWM FILTRATION RATE ML/MIN/1.73 SQ M.IFRJUKXLQ81.1 mL/min/1.73m*2Normal>60.0UnKettering Health PrebleComment on above: Result Comment: [facility]???s estimated glomerular filtration rate (eGFR) [...] potential consequences that do not disproportionately affect anyone group of individuals.Performed By: #### [id number] ####[facility] ([facility])[address] [place] [address]Finpgtj [Mass/Vol]90 mg/tWKcftof51-315EwgqmkvgblKettering Health PrebleComment on above:Performed By: #### [id number] ####[facility] ([facility])[address] [place], [place] [address]Mfstnplmr [Moles/Vol]4.0 mmol/LNormal3.5-5.1UnKettering Health PrebleComment on above:Performed By: #### [id number] ####[facility] ([facility])[address] [place] [address] Sodium [Moles/Vol]137 mmol/XQfgsvq609-540EslcvsjzdvKettering Health Preble Comment on above:Performed By: #### [id number] ####[facility] ([facility])[address] [place], [place] [address]Jona nitrogen [Mass/Vol]7 mg/dLNormal7-25UnKettering Health PrebleComment on above:Performed By: #### [id number] ####[facility] ([facility])[address] [place], [place] [address]HVZR NITROGEN/CREATININE (MASS RATIO) IN SER/PLAS7.1NormalUnKettering Health PrebleComment on above:Performed By: #### [id number] ####[facility] ([facility])[address] [place], [place] [address]GVVhy [id number] distribution width (RBC) [Ratio] 16.2 %High11.5-15.0UnKettering Health PrebleComment on above:Performed By: #### [id number] #### [facility] ([facility]) [address] [place], [place] [address]GJWLVENLQAN MEAN CORPUSCULAR HEMOGLOBIN CONCENTRATION (G/DL) BY GDSAQELEA72.5 g/dLLow32.0-35.0UnKettering Health PrebleComment on above:Performed By: #### [id number] #### [facility] ([facility]) [address] [place] [address]Nrynadyvyz (Bld) [Volume fraction]42.0 %Xltfec87.0-55.0 [facility] CenterComment on above:Performed By: #### [id number] #### [facility] ([facility]) [address] [place] [address]Qcwbnmugqo (Bld) [Mass/Vol]12.8 g/dLLow13.0-17.0UnKettering Health PrebleComment on above:Performed By: #### [id number] #### [facility] ([facility]) [address] [place] [address]AVY (RBC) [Entitic mass]26.9 pgLow27.0-33.0UnKettering Health PrebleComment on above:Performed By: #### [id number] #### [facility] ([facility]) [address] [place], [place] [address]JNU (RBC) [Entitic vol]88.2 gBUjvmsy09.0-98.0UnKettering Health PrebleComment on above:Performed By: #### [id number] #### [facility] ([facility]) [address] [place] [address]FXTJBRDNW (10*3/UL) IN BLOOD AUTOMATED [id number] 10*3/uLNormal 150-400UnKettering Health PrebleComment on above:Performed By: #### [id number] #### [facility] ([facility]) [address] [place], [place] [address]NCB (Bld) [#/Vol]4.76 10*6/uLNormal4.20-5.70UnKettering Health PrebleComment on above:Performed By: #### [id number] #### [facility] ([facility]) [address] [place] [address]ODK (Bld) [#/Vol]8.22 10*3/uLNormal4.00-10.60UnKettering Health PrebleComment on above:Performed By: #### [id number] #### [facility] ([facility]) [address] [place], [place] [address]VOEZZIMJApe 68-35-9907Eqtcfzywi [Mass/Vol]2.0 mg/dLNormal1.9-2.7 [facility] CenterComment on above:Performed By: #### [id number] #### [facility] ([facility]) [address] [facility] [place], [place] [address]UTRPQ CULTUREon 67-89-0183Thstculk identified Cx Nom (Bld)No growth at 5 daysNormalUniversMercy Health Kings Mills HospitalComment on above: Performed By: #### [id number] ####[facility] ([facility])[address] [place], [place] [address]Rmknz Comment: From a different site than #1.Performed By: #### [id number] #### [facility] ([facility]) [address] [place], [place] [address]G-VGWUJABN PROTEINon 10-08-2024 REACTIVE PROTEIN (MG/L) IN SER/PLAS26.6 mg/LHigh<=5.0UnKettering Health PrebleComment on above: Result Comment: Testing performed using a new methodology, turbidimetry. Normal ranges have been updated. Old normal range was <8 mg/L.Performed By: #### [id number] ####[facility] ([facility])[address] [place], [place] [address]MMM WITH AUTO DIFFERENTIALon 22-82-8357Fywkqfxyn (Bld) [#/Vol]0.06 10*3/uLNormal0.00-0.20 [facility] CenterComment on above:Performed By: #### [id number] #### [facility] ([facility]) [address] [place], [place] [address]Wlaauvdjh/100 WBC (Bld)0.8 %Normal0.0-1.0UnKettering Health PrebleComment on above:Performed By: #### [id number] #### [facility] ([facility]) [address] [place], [place] [address]Rzjitheqwxa (Bld) [#/Vol]0.17 10*3/uLNormal0.00-0.50UnKettering Health PrebleComment on above:Performed By: #### [id number] #### [facility] ([facility]) [address] [place] [address]Ggkwmbwvlgy/100 WBC (Bld)2.3 %Normal0.0-6.0UnKettering Health PrebleComment on above:Performed By: #### [id number] #### [facility] ([facility]) [address] [facility], [place] [address]Fupltxpaqrp distribution width (RBC) [Ratio]16.0 %High11.5-15.0 [facility] CenterComment on above:Performed By: #### [id number] #### [facility] ([facility]) [address] [address]JZSKYFKQPUE MEAN CORPUSCULAR HEMOGLOBIN CONCENTRATION (G/DL) BY MVIDNLZKI07.3 g/dLLow32.0-35.0UnKettering Health PrebleComment on above:Performed By: #### [id number] #### [facility] ([facility]) [address] [place], [place] [address]Imiuyxflbf (Bld) [Volume fraction]40.9 %Tjvlgn08.0-55.0 [facility] CenterComment on above:Performed By: #### [id number] #### [facility] ([facility]) [address] [place], [place] [address]Gnrexahliv (Bld) [Mass/Vol]12.4 g/dLLow13.0-17.0UnKettering Health PrebleComment on above:Performed By: #### [id number] #### [facility] ([facility]) [address] [place], [place] [address]Onxpudvd granulocytes (Bld) [#/Vol]0.10 10*3/uLNormal0.00-0.20 [facility] CenterComment on above:Performed By: #### [id number] #### [facility] ([facility]) [address] [place] [address]Tozxtqju granulocytes/100 WBC (Bld)1.4 %High0.0-1.0UnKettering Health PrebleComment on above:Performed By: #### [id number] #### [facility] ([facility]) [address] [place] [address]Bybzpvszqhf (Bld) [#/Vol]0.73 10*3/uLLow1.20-4.00UnKettering Health PrebleComment on above:Performed By: #### [id number] #### [facility] ([facility]) [address] [facility], [place] [address]Jhvzkfsckkj/100 WBC (Bld)10.0 %Low20.0-45.0UnKettering Health PrebleComment on above:Performed By: #### [id number] #### [facility] ([facility]) [address] [place], [place] [address]GUI (RBC) [Entitic mass]26.7 pgLow27.0-33.0UnKettering Health PrebleComment on above:Performed By: #### [id number] #### [facility] ([facility]) [address] [place], [place] [address]YFV (RBC) [Entitic vol]88.0 nWOsfjbv35.0-98.0UnKettering Health PrebleComment on above:Performed By: #### [id number] #### [facility] ([facility]) [address] [place], [place] [address]Mujhvlifh (Bld) [#/Vol]0.52 10*3/uLNormal0.10-1.00UnKettering Health PrebleComment on above:Performed By: #### [id number] #### [facility] ([facility]) [address] [place], [place] [address]Kraranpok/100 WBC (Bld)7.1 %Normal5.0-12.0UnKettering Health PrebleComment on above:Performed By: #### [id number] #### [facility] ([facility]) [address] [place] [address]Magpdnhdxoa (Bld) [#/Vol]5.73 10*3/uLNormal1.60-7.60UnKettering Health PrebleComment on above:Performed By: #### [id number] #### [facility] ([facility]) [address] [place] [address]Afawmsejtfw/100 WBC (Bld)78.4 %High40.0-72.0UnKettering Health PrebleComment on above:Performed By: #### [id number] #### [facility] ([facility]) [address] [place] [address]UQCU (PER 100 WBCS) BY AUTOMATED COUNT0.0 %Cfxddp6GtsrjhxropKettering Health PrebleComment on above:Performed By: #### [id number] #### [facility] ([facility]) [address] [place] [address]GLMTYNFVC (10*3/UL) IN BLOOD AUTOMATED [id number] 10*3/uLNormal 150-400UnKettering Health PrebleComment on above:Performed By: #### [id number] #### [facility] ([facility]) [address] [place] [address]GSU (Bld) [#/Vol]4.65 10*6/uLNormal4.20-5.70UnKettering Health PrebleComment on above:Performed By: #### [id number] #### [facility] ([facility]) [address] [place] [address]YRC (Bld) [#/Vol]7.31 10*3/uLNormal4.00-10.60UnKettering Health PrebleComment on above:Performed By: #### [id number] #### [facility] ([facility]) [address] [place] [address]ZKGRWFHBKTLTL METABOLIC PANELon 86-20-6120Ruvrsif [Mass/Vol]3.7 g/dLNormal3.5-5.7UnKettering Health PrebleComment on above:Performed By: #### [id number] #### [facility] ([facility]) [address] [place], [place] [address]NPO [Catalytic activity/Vol]130 U/VWbzb33-580RxwyvnzrilKettering Health PrebleComment on above:Performed By: #### [id number] #### [facility] ([facility]) [address] [place], [place] [address]DWW [Catalytic activity/Vol]14 U/LNormal7-52UnKettering Health PrebleComment on above:Performed By: #### [id number] #### [facility] ([facility]) [address] [place], [place] [address]Pgtyr gap [Moles/Vol]9 mmol/LNormal7-20UnKettering Health PrebleComment on above:Performed By: #### [id number] #### [facility] ([facility]) [address] [place], [place] [address]LTN [Catalytic activity/Vol]19 U/YGfttgl99-05YahszshcchKettering Health PrebleComment on above:Performed By: #### [id number] #### [facility] ([facility]) [address] [place], [place] [address]Dphinedcy [Mass/Vol]0.7 mg/dLNormal0.3-1.0UnKettering Health PrebleComment on above:Performed By: #### [id number] #### [facility] ([facility]) [address] [place], [place] [address]Obckgws [Mass/Vol]9.5 mg/dLNormal8.6-10.3UnKettering Health PrebleComment on above:Performed By: #### [id number] #### [facility] ([facility]) [address] [place], [place] [address]Lhocgiko [Moles/Vol]99 mmol/WYrckdr57-638OhnbchcwbqKettering Health PrebleComment on above:Performed By: #### [id number] #### [facility] ([facility]) [address] [place], [place] [address]BK1 [Moles/Vol]37 mmol/VMrbv28-24LorigkhyfzKettering Health PrebleComment on above:Performed By: #### [id number] #### [facility] ([facility]) [address] [place] [address]Khcnotmoej [Mass/Vol]0.96 mg/dLNormal0.70-1.30UnKettering Health PrebleComment on above:Performed By: #### [id number] #### [facility] ([facility]) [address] [place] [address]BHWYBTGENS FILTRATION RATE ML/MIN/1.73 SQ M.ZHJBJPHIN12.3 mL/min/1.73m*2Normal>60.0UnKettering Health PrebleComment on above: Result Comment: The [facility]???s estimated glomerular filtration rate (eGFR) [...] potential consequences that do not disproportionately affect anyone group of individuals.Performed By: #### [id number] #### [facility] ([facility]) [address] [place] [address]Krjynfv [Mass/Vol]83 mg/nKMijjct14-772PpekoohcbrKettering Health PrebleComment on above:Performed By: #### [id number] #### [facility] ([facility]) [address] [place] [address]Hpjqlaixi [Moles/Vol]4.2 mmol/LNormal3.5-5.1UnKettering Health PrebleComment on above:Performed By: #### [id number] #### [facility] ([facility]) [address] [place] [address]Tnofykb [Mass/Vol]7.1 g/dLNormal6.0-8.3UnKettering Health PrebleComment on above:Performed By: #### [id number] #### [facility] ([facility]) [address] [place] [address]Kbnsrr [Moles/Vol]141 mmol/OMwabfn118-286UsapyxfzgwKettering Health PrebleComment on above:Performed By: #### [id number] #### [facility] ([facility]) [address] [place] [address]Xiib nitrogen [Mass/Vol]10 mg/dLNormal7-25UnKettering Health PrebleComment on above:Performed By: #### [id number] #### [facility] ([facility]) [address] [place], [place] [address]XFHO NITROGEN/CREATININE (MASS RATIO) IN SER/PLAS10.4Normal [facility] CenterComment on above:Performed By: #### [id number] #### [facility] ([facility]) [address] [place] [address]RDYIPWJgs 20-46-7155PTXNWHW Attestation signed by Jose Angel Mai MD at 10/08/2024 12:10 PM Patient [...] of right lower extremity. Denies any new numbness/tingling/weakness. Denies any fevers/sweats/chills or other constitutional symptoms. [...] (Viagra) 25 mg ta (more content not included)...[facility] CenterEDNURSon 21-51-0469EYYRWLDatkfbz: transfer from [place] ED Complaint: cellulitis to right leg, hx surgery on 09/24 Notes: patient arrived on this day [facility] from [facility] for pain to the right leg. Previous surgery at [facility] on 09/24 for right leg tib/fib fracture. Per [place] staff, patient arrived with increased pain, redness and swelling to right lower extremity. Ultrasound was negative for DVT. [place] ED treated for cellulitis, administered dose of zosyn at 0330, vancomycin at 2030 and 5mg oxycontin at 1930. Patient endorsed non-compliance, did not have post surgery follow up appointment and has been putting weight on leg. History of hypertension, patient O2 desat to 88% when sleeping. Per [place], patient non-compliant with bipap. Upon arrival, patient endorsed pain 8/10 and nausea. Patient denied chest pain, fever, chills and shortness of breath.[facility] EDPROVon 66-08-2432ARSRKWIdivwuzrwhKettering Health Preble Wander [facility] [phone] EMERGENCY DEPARTMENT ENCOUNTER CHIEF COMPLAINT Chief Complaint Patient presents with Cellulitis HISTORY OF PRESENT ILLNESS Matty Garces is a 54 y.o. male who presents with a Chief Complaint Patient presents with Cellulitis REVIEW OF SYSTEMS Review of Systems Musculoskeletal: Positive for arthralgias. Skin: Positive for rash. All other systems reviewed and are negative. The patient is a 54-year-old male who was transferred from [facility] for cellulitis involving recent right lower extremity surgery. Patient had surgical pair of a tibia fracture on September 24. The patient states that he went to [place] emergency department today due to increased swelling. Patient was given Zosyn and vancomycin at [facility]. Patient states that he is [...] No respiratory distress. B (more content not included)...NormalUnKettering Health Preble MAGNESIUMon 81-55-6020Xjwvoawbc [Mass/Vol]1.8 mg/dLLow1.9-2.7UnKettering Health PrebleComment on above:Performed By: #### [id number] #### [facility] ([facility]) [address] [place] [address]PZHAJPKIGAJAM RATEon 72-14-2450WRCQOVMFXDHVO RATE, VOEFZCQOGRU89 mm/hrHigh<20UnKettering Health PrebleComment on above:Performed By: #### [id number] #### [facility] ([facility]) [address] [place] [address]NTKMLPN D 25 HYDROXYon 31-39-3780ZGZEVULRF (25 [place] VITAMIN D3) (NG/ML) IN SER/PLAS37.0 ng/wNLuezaq84.0-80.0UnKettering Health Preble Comment on above:Result Comment: >80.0 Toxicity possiblePerformed By: #### [id number] ####[facility] ([facility])[address] [address]sg [id number] called and is seeing the patient for wound care, PT, and OT. Seeing patient a couple times a week could specify a number of times. States is also doing dressing changes. [phone] [facility] HospitalTelephoneon 10-04-2024 [id number] Matty Garces 1970 M Date Provider Department Center 10/04/2024 [address]-GTHBLTMATT MCCORMACK MP ORTHO MPORTHO No family history on file Reason for Visit and Comments: Information [Other]NormalUnKettering Health Preble36on Patient in home PT called and wanted to confirm if Dr. Field does the in home therapy approvals/orders or if he had to follow up with his PCP, typewriters functional tester informed her he does. Patient is scheduled for 10/05/24.NormalUnKettering Health PrebleBASIC METABOLIC PANELon 85-04-4724Nwpsb gap [Moles/Vol]7 mmol/LNormal7-20 [facility] CenterComment on above:Performed By: #### [id number] ####[facility] ([facility])[address] [place], [place] [address]Lrxxaud [Mass/Vol]9.6 mg/dLNormal8.6-10.3UnKettering Health PrebleComment on above:Performed By: #### [id number] ####[facility] ([facility])[address] [place], [place] [address]Gecpeoee [Moles/Vol]98 mmol/ZNxhmjr76-049AbrmhfufdlKettering Health PrebleComment on above:Performed By: #### [id number] ####[facility] ([facility])[address] [place], [place] [address]ZD8 [Moles/Vol]34 mmol/TPebo74-68 [facility] CenterComment on above:Performed By: #### [id number] ####[facility] ([facility])[address] [place], [place] [address]Gshlzpwzbm [Mass/Vol]0.92 mg/dLNormal0.70-1.30UnKettering Health PrebleComment on above:Performed By: #### [id number] ####[facility] ([facility])[address] [place], [place] [address]MCJCOSXLHY FILTRATION RATE ML/MIN/1.73 SQ M.SIEDTJYTX47.9 mL/min/1.73m*2Normal>60.0UnKettering Health PrebleComment on above: Result Comment: The [facility]???s estimated glomerular filtration rate (eGFR) [...] potential consequences that do not disproportionately affect anyone group of individuals.Performed By: #### [id number] ####[facility] ([facility])[address] [place], [place] [address]Xmprkwc [Mass/Vol]99 mg/jVIaizjr25-630SivtxbcznjKettering Health PrebleComment on above:Performed By: #### [id number] ####[facility] ([facility])[address] [facility] [address]Earxjidwq [Moles/Vol]4.3 mmol/LNormal3.5-5.1UnKettering Health PrebleComment on above:Performed By: #### [id number] ####[facility] ([facility])[address] [place] [address] Sodium [Moles/Vol]135 mmol/SIje349-773GsskjahofaKettering Health PrebleComment on above:Performed By: #### [id number] ####[facility] ([facility])[address] [place], [place] [address]Etaa nitrogen [Mass/Vol]20 mg/dLNormal7-25UnKettering Health PrebleComment on above:Performed By: #### [id number] ####[facility] ([facility])[address] [place], [place] [address]NOVQ NITROGEN/CREATININE (MASS RATIO) IN SER/PLAS21.7NormalUniversMercy Health Kings Mills HospitalComment on above: Performed By: #### [id number] ####[facility] ([facility])[address] [place] [address]VWRpk 94-53-5437Rylfysmhyam distribution width (RBC) [Ratio]15.3 %High 11.5-15.0UnKettering Health PrebleComment on above:Performed By: #### [id number] #### [facility] ([facility]) [address] [place] [address]YQXNOLOPBNN MEAN CORPUSCULAR HEMOGLOBIN CONCENTRATION (G/DL) BY IQBCOSTCA60.9 g/dLLow32.0-35.0UnKettering Health PrebleComment on above:Performed By: #### [id number] #### [facility] ([facility]) [address] [place] [address]Icivxgspwi (Bld) [Volume fraction]44.4 %Yfvcjm81.0-55.0 [facility] CenterComment on above:Performed By: #### [id number] #### [facility] ([facility]) [address] [place] [address]Acgkhaztgo (Bld) [Mass/Vol]13.7 g/sJFzcsap62.0-17.0UnKettering Health PrebleComment on above:Performed By: #### [id number] #### [facility] ([facility]) [address] [place] [address]EWE (RBC) [Entitic mass]26.5 pgLow27.0-33.0UnKettering Health PrebleComment on above:Performed By: #### [id number] #### [facility] ([facility]) [address] [place] [address]KAS (RBC) [Entitic vol]85.9 bVTscsbq87.0-98.0UnKettering Health PrebleComment on above:Performed By: #### [id number] #### [facility] ([facility]) [address] [place] [address]ALZPPXBTC (10*3/UL) IN BLOOD AUTOMATED [id number] 10*3/uLNormal 150-400UnKettering Health PrebleComment on above:Performed By: #### [id number] #### [facility] (AKER) [address] [place] [address]QUP (Bld) [#/Vol]5.17 10*6/uLNormal4.20-5.70[facility] CenterComment on above:Performed By: #### [id number] #### [facility] ([facility]) [address] [place] [address]WYU (Bld) [#/Vol]10.65 10*3/uLHigh4.00-10.60UnKettering Health PrebleComment on above:Performed By: #### [id number] #### [facility] ([facility]) [address] [place] [address]WIVGLOZcv 54-16-3438IUNGHQFXzeuxkc tried CPAP in the past and was unable to tolerate [...] Interventions Referrals/Orders: Yes, Sleep Time Spent: 20 NormalUnKettering Health PrebleDSon 74-79-6014XXUrrdzdlzm Admitted 09/23/2024 for Fall, syncope Comminuted right tib/fib fracture CHF HTN Hypomagnesemia Enlarged right hilar node Enlarged prostate Discharge Diagnosis Fall, syncope Comminuted right tib/fib fracture CHF HTN Hypomagnesemia Enlarged right hilar node Enlarged prostate Obstructive sleep apnea Morbid obesity Atrial flutter, new onset Discharge Disposition Home-Health Care [facility] (06) Discharge Medications Your medication list START [...] Medications These medications were sent to [facility] [place] [address] [address] [place] [address], [facility] [address] acetaminophen 500 mg tablet aspirin 81 mg [...] patient refused this stating he already has [facility] set up and wants to go home. Vascular surgery was consulted for a chronic left foot ulcer. Pulmonary navigator was consulted for PATEL and recommended OP sleep study. On day of discharge, Trauma team was informed at approximately 1730 per [facility] that patient went into a-flutter and sustained for approximately 2 hours fro (more content not included)...[facility] CenterEDPROVon [id number] report has been cancelled.[facility] GeneralLetter (Out)on 66-51-1701Nwclwf (Out)[id number] Matty Garces 1970 M Date Provider Department Center 09/28/2024 [id number], GENERIC PRO*INIT None No family history on fileNormalUniversMercy Health Kings Mills HospitalMAGNESIUMon 71-84-7407Bgwzeozsd [Mass/Vol]2.0 mg/dLNormal1.9-2.7UnKettering Health PrebleComment on above:Performed By: #### [id number] #### [facility] ([facility]) [address] [place], [place] [address]MQLIJKHBne 32-88-8163VRLPVIGSZQ signed AMA paperwork with trama team. Pt left with belongings and family. AMA paperwork in patient chart.[facility] PHOSPHORUSon 87-98-1997Dyjbibcit [Mass/Vol]3.3 mg/dLNormal2.5-5.0UnKettering Health PrebleComment on above:Performed By: #### [id number] ####[facility] ([facility])[address] [place], [place] [address]34ve 22-56-49[address]Grs patient is Moderately Stable - Low risk of patient condition declining or worsening The patient's goals for the shift include comfort The clinical goals for the shift include VSS, pain control Over the shift, the patient did not make progress toward the following goals. Barriers to progression include unstable VS. Recommendations to address these barriers include continue medications as orderedNormUniversity Hospitals [facility]huja Medical Center30Daily Case Management Update Multidisciplinary rounds have been completed. Barriers to Discharge: Pending clinical course; POD3 IMN; 4L NC. Patient refusing CPaP at rest/sleep, Pulm brennen consulted and following. PT/OT recommending IPR, PMR consulted and recommend IPR. Patient and spouse would like to go home with [facility]. Referrals sent, pending accepting [facility] agency>>[facility] accepting. DME recommended--wheelchair, rolling walker, bedside commode--scripts written and face to face notes signed.>>need sent to [employer] company for fulfillment. SW following. Diet: Dietary Orders [...] R tib fib facrture Level of Consultation Anchor Operator assumes full responsibility 09/23/24 1231 09/23/24 1221 [...] Answer: Post muscular skeletal surgical procedure 09/24/24 1242NormalUniSelect Medical Specialty [facility]30The patient is Moderately Stable - Low risk [...] medicate for pain as ordered maintain safety precautions.NormalUnKettering Health Preble30The patient is Moderately Stable - Low risk of patient condition declining or worsening The patient's goals for the shift include Comfort The clinical goals for the shift include VSS Problem: Pain - Adult Goal: Verbalizes/displays adequate comfort level or baseline comfort level Outcome: Progressing Flowsheets (Taken 09/27/2024 001) Verbalizes/displays adequate comfort level or baseline comfort [...] and behaviors that affect risk of falls [place] fall precautions as indicated by assessment Educate patient/family on patient safety, including physical limitations Instruct patient to call for assistance with activity based on assessment Modify environment to reduce risk of injuryNormalUniSelect Medical Specialty Hospital - CincinnatiBASIC METABOLIC PANELon 90-01-1979Ydbww gap [Moles/Vol]9 mmol/LNormal7-20 [facility] CenterComment on above:Performed By: #### [id number] #### [facility] ([facility]AK[facility]) [address] [place], [place] [address]Rjwsira [Mass/Vol]9.3 mg/dLNormal8.6-10.3UnKettering Health PrebleComment on above:Performed By: #### [id number] #### [facility] ([facility]) [address] [place] [address]Ncgsbhth [Moles/Vol]99 mmol/MDyiabk32-595XqfvmmjvnkKettering Health PrebleComment on above:Performed By: #### [id number] #### [facility] ([facility]) [address] [place] [address]PJ7 [Moles/Vol]33 mmol/NRggp92-49CifcgesucoKettering Health PrebleComment on above:Performed By: #### [id number] #### [facility] ([facility]) [address] [place] [address]Mscviccpew [Mass/Vol]0.89 mg/dLNormal0.70-1.30UnKettering Health PrebleComment on above:Performed By: #### [id number] #### [facility] ([facility]) [address] [place], [place] [address]IFWYJCJHKC FILTRATION RATE ML/MIN/1.73 SQ M.JXGFYXWMI947.8 mL/min/1.73m*2Normal>60.0UnKettering Health PrebleComment on above: Result Comment: [facility]???s estimated glomerular filtration rate (eGFR) [...] potential consequences that do not disproportionately affect anyone group of individuals.Performed By: #### [id number] #### [facility] ([facility]) [address] [place] [address]Xgmdcnn [Mass/Vol]95 mg/gKAllpae96-637XycgboaalhKettering Health PrebleComment on above:Performed By: #### [id number] #### [facility] ([facility]) [address] [place], [place] [address]Vyhqisjva [Moles/Vol]4.1 mmol/LNormal3.5-5.1UnKettering Health PrebleComment on above:Performed By: #### [id number] #### [facility] ([facility]) [address] [place] [address]Jqibxt [Moles/Vol]137 mmol/ZIvxkms576-466VagkdalhbcKettering Health PrebleComment on above:Performed By: #### [id number] #### [facility] ([facility]) [address] [place], [place] [address]Bhni nitrogen [Mass/Vol]17 mg/dLNormal7-25UnKettering Health PrebleComment on above:Performed By: #### [id number] #### [facility] ([facility]) [address] [place], [place] [address]RSNK NITROGEN/CREATININE (MASS RATIO) IN SER/PLAS19.1Normal [facility] CenterComment on above:Performed By: #### [id number] #### [facility] ([facility]) [address] [place], [place] [address]EYXzr 41-90-4592Xywykyhsrtg distribution width (RBC) [Ratio]15.4 %High11.5-15.0UnKettering Health PrebleComment on above:Performed By: #### [id number] #### [facility] ([facility]) [address] [place], [place] [address]KFMXGBODGKB MEAN CORPUSCULAR HEMOGLOBIN CONCENTRATION (G/DL) BY RLMMAYFUK03.8 g/dLLow32.0-35.0UnKettering Health PrebleComment on above:Performed By: #### [id number] #### [facility] ([facility]) [address] [place], [place] [address]Oxiaoxirhh (Bld) [Volume fraction]45.5 %Ttrwsz88.0-55.0 [facility] CenterComment on above:Performed By: #### [id number] #### [facility] ([facility]) [address] [place] [address]Eofuumyvze (Bld) [Mass/Vol]14.0 g/fOYujgjw84.0-17.0UnKettering Health PrebleComment on above:Performed By: #### [id number] #### [facility] ([facility]) [address] [address]HYV (RBC) [Entitic mass]26.5 pgLow27.0-33.0UnKettering Health PrebleComment on above:Performed By: #### [id number] #### [facility] ([facility]) [address] [place] [address]FSX (RBC) [Entitic vol]86.0 wJAhucej07.0-98.0UnKettering Health PrebleComment on above:Performed By: #### [id number] #### [facility] ([facility]) [address] [address]WVRDKYNNQ (10*3/UL) IN BLOOD AUTOMATED [id number] 10*3/uLNormal 150-400UnKettering Health PrebleComment on above:Performed By: #### [id number] #### [facility] ([facility]) [address] [place] [address]NJF (Bld) [#/Vol]5.29 10*6/uLNormal4.20-5.70UnKettering Health PrebleComment on above:Performed By: #### [id number] #### [facility] ([facility]) [address] [place] [address]UIH (Bld) [#/Vol]10.21 10*3/uLNormal4.00-10.60UnKettering Health PrebleComment on above:Performed By: #### [id number] #### [facility] ([facility]) [address] [place] [address]KZVEQZMWOcz 44-07-4718Octfggcgl [Mass/Vol]1.9 mg/dLNormal1.9-2.7 [facility] CenterComment on above:Performed By: #### [id number] #### [facility] ([facility]) [address] [place], [place] [address]SIFRKEMVGAhg 78-62-9349Qmmwtgumf [Mass/Vol]4.4 mg/dLNormal 2.5-5.0UnKettering Health PrebleComment on above:Performed By: #### [id number] #### [facility] ([facility]) [address] [place], [place] [address]KHOIXZ BLOOD GAS WITH IONIZED CALCIUMon 31-42-1984Dzsa excess Calc (BldV) [Moles/Vol]9.2 mmol/LNormalUnKettering Health Preble Comment on above:Performed By: #### [id number] ####[facility] RESPIRATORY [id number] [place] [address] USACALCIUM IONIZED (MMOL/L) IN BLOOD1.27 mmol/L Normal1.15-1.33UnKettering Health PrebleComment on above:Performed By: #### [id number] ####[facility] RESPIRATORY [id number] [place] [address] [place] CO2 (BldV) [Partial pressure]50 mm[Hg]Hzlxuy57-98IbykbecftjKettering Health PrebleComment on above:Performed By: #### [id number] ####[facility] RESPIRATORY [id number] [place] [address] USAHCO3 (Bld) [Moles/Vol]34.8 mmol/L NormalUnKettering Health PrebleComment on above:Performed By: #### [id number] ####[facility] RESPIRATORY [id number] [facility] [place] [address] USAOxygen (BldV) [Partial pressure]53 mm[Hg]Vlsu08-44BlpdgjjlndKettering Health Preble Comment on above:Performed By: #### [id number] ####[facility] RESPIRATORY [id number] [place] [address] USAOXYGEN SATURATION (%) IN VENOUS BLOOD87.1 %High 65.0-75.0UnKettering Health PrebleComment on above:Performed By: #### [id number] ####[facility] RESPIRATORY [id number] [place] [address] USAPH OF VENOUS BLOOD7.14Ibrt1.31-7.41UnKettering Health PrebleComment on above:Performed By: #### [id number] ####[facility] RESPIRATORY [id number] [place] [address] USABASIC METABOLIC PANELon 76-67-5358Vzybp gap [Moles/Vol]8 mmol/LNormal7-20UnKettering Health PrebleComment on above:Performed By: #### [id number] #### [facility] ([facility]ER) [address], [place] [address]Smbciql [Mass/Vol]9.4 mg/dLNormal8.6-10.3UnKettering Health PrebleComment on above:Performed By: #### [id number] #### [facility] [address] [place], [place] [address]Gtegzbmw [Moles/Vol]99 mmol/ZIvcpai41-495LzaxxmjndfKettering Health PrebleComment on above:Performed By: #### [id number] #### [facility] (BEAKER) [address] [place], [place] [address]JF2 [Moles/Vol]36 mmol/ZEozt83-38LxdywnikxgKettering Health PrebleComment on above:Performed By: #### [id number] #### [facility] (BEAKER) [address] [place], [place] [address]Aemoozqfqw [Mass/Vol]0.91 mg/dLNormal0.70-1.30UnKettering Health PrebleComment on above:Performed By: #### [id number] #### [facility] (BEAKER) [address], [place] [address]TRGARANCMU FILTRATION RATE ML/MIN/1.73 SQ M.LDXZZKHKL543.2 mL/min/1.73m*2Normal>60.0UnKettering Health PrebleComment on above: Result Comment: [facility]???s estimated glomerular filtration rate (eGFR) [...] potential consequences that do not disproportionately affect anyone group of individuals.Performed By: #### [id number] #### [facility] ([facility]) [address] [place], [place] [address]Rbmreos [Mass/Vol]85 mg/oGUtrfgu56-477GsjgqnwykuKettering Health PrebleComment on above:Performed By: #### [id number] #### [facility] ([facility]) [address] [place], [place] [address]Eahmibhzl [Moles/Vol]3.8 mmol/LNormal3.5-5.1UnKettering Health PrebleComment on above:Performed By: #### [id number] #### [facility] ([facility]) [address] [place], [place] [address]Iiqdne [Moles/Vol]139 mmol/TZluyay556-829XlhavnhswvKettering Health PrebleComment on above:Performed By: #### [id number] #### [facility] ([facility]) [address] [place], [place] [address]Bwdd nitrogen [Mass/Vol]18 mg/dLNormal7-25UnKettering Health PrebleComment on above:Performed By: #### [id number] #### [facility] ([facility]) [address] [place], [place] [address]RMWM NITROGEN/CREATININE (MASS RATIO) IN SER/PLAS19.8Normal [facility] CenterComment on above:Performed By: #### [id number] #### [facility] ([facility]) [address] [place], [place] [address]TWQjo 46-19-3759Ytdltjnexkn distribution width (RBC) [Ratio]15.4 %High11.5-15.0UnKettering Health PrebleComment on above:Performed By: #### [id number] #### [facility] ([facility]) [address] [address]TMWXJSMSLMO MEAN CORPUSCULAR HEMOGLOBIN CONCENTRATION (G/DL) BY WPQNIQHAX05.1 g/dLLow32.0-35.0UnKettering Health PrebleComment on above:Performed By: #### [id number] #### [facility] ([facility]) [address] [place] [address]Ourxpmydyt (Bld) [Volume fraction]43.8 %Uphphb50.0-55.0 [facility] CenterComment on above:Performed By: #### [id number] #### [facility] ([facility]) [address] [place] [address]Jcdlbnwyqe (Bld) [Mass/Vol]13.6 g/qXGlxrix74.0-17.0UnKettering Health PrebleComment on above:Performed By: #### [id number] #### [facility] ([facility]) [address] [place] [address]BCU (RBC) [Entitic mass]26.3 pgLow27.0-33.0UnKettering Health PrebleComment on above:Performed By: #### [id number] #### [facility] ([facility]) [address] [place] [address]SJT (RBC) [Entitic vol]84.7 qQZsegin36.0-98.0UnKettering Health PrebleComment on above:Performed By: #### [id number] #### [facility] ([facility]) [address] [place] [address]TCDMDKNLE (10*3/UL) IN BLOOD AUTOMATED OFDRP999 10*3/uLNormal 150-400UnKettering Health PrebleComment on above:Performed By: #### [id number] #### [facility] ([facility]) [address] [place] [address]ZBX (Bld) [#/Vol]5.17 10*6/uLNormal4.20-5.70UnKettering Health PrebleComment on above:Performed By: #### [id number] #### [facility] ([facility]) [address] [place] [address]CSX (Bld) [#/Vol]9.63 10*3/uLNormal4.00-10.60UnKettering Health PrebleComment on above:Performed By: #### [id number] #### [facility] ([facility]) [address] [place] [address]TSWEPKDUIoa 41-90-2869Hbhuvjdkq [Mass/Vol]1.9 mg/dLNormal1.9-2.7 [facility] CenterComment on above:Performed By: #### [id number] #### [facility] ([facility]) [address] [place] [address]HEOYWWHCTVpn 94-68-7094Hviaixemj [Mass/Vol]2.6 mg/dLNormal 2.5-5.0UnKettering Health PrebleComment on above:Performed By: #### [id number] #### [facility] ([facility]) [address] [place] [address]40wt 38-78-[address]Twmjszk: Pain - Adult Goal: Verbalizes/displays adequate comfort [...] address these barriers include consult for respiratory therapy.[facility]30Daily Case Management Update Multidisciplinary rounds have been completed. Barriers to Discharge: Pending clinical course; patient requiring 10L salter at this time, pulmonary navigator consulted for possible PATEL. CXR ordered, no acute findings. Patient will require a home O2 evaluation if unable to wean oxygen. PT/OT recommending IPR, PMR consulted and recommend IPR. Patient and spouse would like to go home with [facility]. Referrals sent, pending accepting [facility] agency. DME recommended--wheelchair, rolling walker, bedside commode--scripts written and face [...] R tib fib facrture Level of Consultation Anchor Operator assumes full responsibility 09/23/24 1231 09/23/24 1221 [...] Answer: Post muscular skeletal surgical procedure 09/24/24 1242NormalUniversMercy Health Kings Mills HospitalBASIC METABOLIC PANELon 54-94-6049Ztbxl gap [Moles/Vol]9 mmol/LNormal7-20UnKettering Health PrebleComment on above:Performed By: #### [id number] ####[facility] (BEAKER)[address] [place] [address]Mwsgxuv [Mass/Vol]8.9 mg/dLNormal 8.6-10.3UnKettering Health PrebleComment on above:Performed By: #### [id number] ####[facility] (BEAKER)[address] [place] [address]Tauulvcc [Moles/Vol]97 mmol/SNtm39-530DfsagetajmKettering Health PrebleComment on above:Performed By: #### [id number] ####[facility] ([facility])[address] [place] [address]SJ4 [Moles/Vol]32 mmol/HAsjg19-76TcaynmrppkKettering Health PrebleComment on above:Performed By: #### [id number] ####[facility] ([facility])[address] [place] [address]Fhinfduqbu [Mass/Vol]0.91 mg/dLNormal 0.70-1.30UnKettering Health PrebleComment on above:Performed By: #### [id number] ####[facility] ([facility])[address] [place] [address]SSBYFVGXQW FILTRATION RATE ML/MIN/1.73 SQ M.VVRGZWHHX003.2 mL/min/1.73m*2Normal>60.0 [facility] CenterComment on above:Result Comment: [facility]???s estimated glomerular filtration rate (eG FR) will no longer include consideration of race [...] potential consequences that do not disproportionately affect anyone group of individuals. Performed By: #### [id number] ####[facility] ([facility])[address] [place] [address]Nqndohh [Mass/Vol]141 mg/iJQsuo70-271EhaguoyonlKettering Health PrebleComment on above:Performed By: #### [id number] ####[facility] ([facility])[address] [place] [address]Flcjybczn [Moles/Vol]4.2 mmol/LNormal 3.5-5.1UnKettering Health PrebleComment on above:Performed By: #### [id number] ####[facility] ([facility] [place] [address]Qmzdoe [Moles/Vol]134 mmol/WIqo878-166BxssunspvkKettering Health PrebleComment on above:Performed By: #### LAB15 ####[facility] ([facility])[address] [address]Gdmc nitrogen [Mass/Vol]15 mg/dLNormal7-25UnKettering Health PrebleComment on above:Performed By: #### LAB15 ####[facility] ([facility])[address] [place] [address]UDJX NITROGEN/CREATININE (MASS RATIO) IN SER/PLAS16.5NormalUniversMercy Health Kings Mills HospitalComment on above: Performed By: #### [id number] ####[facility] ([facility])[address] [address]XUBoa 23-48-0495Wnpywhjxefq distribution width (RBC) [Ratio]14.9 % Kpgwlf13.5-15.0UnKettering Health PrebleComment on above:Performed By: #### [id number] #### [facility] ([facility]) [address] [address]AJHEHZUZVDC MEAN CORPUSCULAR HEMOGLOBIN CONCENTRATION (G/DL) BY YESJVCEEN31.1 g/dLLow32.0-35.0UnKettering Health PrebleComment on above:Performed By: #### [id number] #### [facility] ([facility]) [address] [address]Hjszdeytmd (Bld) [Volume fraction]45.4 %Hrtwys70.0-55.0 [facility] CenterComment on above:Performed By: #### [id number] #### [facility] ([facility]) [address] [address]Luxztyyksz (Bld) [Mass/Vol]14.1 g/tIQdihex75.0-17.0UnKettering Health PrebleComment on above:Performed By: #### [id number] #### [facility] ([facility]) [address] [address]ZWJ (RBC) [Entitic mass]26.3 pgLow27.0-33.0UnKettering Health PrebleComment on above:Performed By: #### [id number] #### [facility] ([facility]) [address] [address]SXP (RBC) [Entitic vol]84.5 hKIvldqe29.0-98.0UnKettering Health PrebleComment on above:Performed By: #### [id number] #### [facility] ([facility]) [address] [place] [address]SKXSYVTMW (10*3/UL) IN BLOOD AUTOMATED [id number] 10*3/uLNormal 150-400UnKettering Health PrebleComment on above:Performed By: #### [id number] #### [facility] ([facility]) [address] [place] [address]MKL (Bld) [#/Vol]5.37 10*6/uLNormal4.20-5.70UnKettering Health PrebleComment on above:Performed By: #### [id number] #### [facility] ([facility]) [address] [place] [address]TQH (Bld) [#/Vol]14.37 10*3/uLHigh4.00-10.60UnKettering Health PrebleComment on above:Performed By: #### [id number] #### [facility] ([facility]) [address] [address]ELHFSFWIDyq 42-43-1108Kwxxmprij [Mass/Vol]2.1 mg/dLNormal1.9-2.7 [facility] CenterComment on above:Performed By: #### [id number] ####[facility] ([facility])[address] [place] [address]FPLHRXQRmw 48-85-2516FESQHPSNWroszt RN met patient at bedside and provided the Trauma Services Patient Brochure. Patient will follow-up with Orthopedics 10/05/2024 at 0900. No further needs currently.NormalUnKettering Health PreblePHOSPHORUSon 09-25-2024 Magnesium [Mass/Vol]2.8 mg/dLNormal2.5-5.0UnKettering Health Preble Comment on above:Performed By: #### [id number] ####[facility] ([facility])[address] [place] [address]yz [id number] patient is Moderately Stable - Low risk [...] Adult Goal: Free from fall injury Outcome: ProgressingNormalUniversMercy Health Kings Mills HospitalBASIC METABOLIC PANELon 02-78-1135Nxqdw gap [Moles/Vol]8 mmol/LNormal7-20UnKettering Health PrebleComment on above:Performed By: #### [id number] ####[facility] ([facility])[address] [place], [place] [address]Qgjitnq [Mass/Vol]9.1 mg/dLNormal 8.6-10.3UnKettering Health PrebleComment on above:Performed By: #### LAB15 ####[facility] ([facility])[address] [place], [place] [address]Rajxtbvn [Moles/Vol]98 mmol/JIyiyce53-428DykmhzjzxhKettering Health PrebleComment on above:Performed By: #### LAB15 ####[facility] ([facility] [place], [place] [address]MQ0 [Moles/Vol]35 mmol/MZdcn91-77NydjxusqyiKettering Health PrebleComment on above:Performed By: #### LAB15 ####[facility] ([facility])[address] [place], [place] [address]Yrcktqayhh [Mass/Vol]1.02 mg/dLNormal 0.70-1.30UnKettering Health PrebleComment on above:Performed By: #### LAB15 ####[facility] ([facility])[address] [place] [address]RTPZNYJKZH FILTRATION RATE ML/MIN/1.73 SQ M.EXPXNLXMT16.3 mL/min/1.73m*2Normal>60.0 [facility] CenterComment on above:Result Comment: [facility]???s estimated glomerular filtration rate (eG FR) will no longer include consideration of race [...] potential consequences that do not disproportionately affect anyone group of individuals. Performed By: #### LAB15 ####[facility] ([facility])[address] [place] [address]Dwvcjbu [Mass/Vol]103 mg/gDUgem27-255ZvmkigunqsKettering Health PrebleComment on above:Performed By: #### LAB15 ####[facility] ([facility])[address] [place] [address]Hjcvzuzlu [Moles/Vol]4.2 mmol/LNormal 3.5-5.1UnKettering Health PrebleComment on above:Performed By: #### LAB15 ####[facility] ([facility])[address] [place] [address]Naqfsz [Moles/Vol]137 mmol/DXnrzrk953-559GwujpgznzrKettering Health PrebleComment on above:Performed By: #### LAB15 ####[facility] ([facility])[address] [place] [address]Ehkw nitrogen [Mass/Vol]11 mg/dLNormal7-25UnKettering Health PrebleComment on above:Performed By: #### LAB15 ####[facility] ([facility])[address] [place], [place] [address]TWGJ NITROGEN/CREATININE (MASS RATIO) IN SER/PLAS10.8NormalUniversMercy Health Kings Mills HospitalComment on above: Performed By: #### [id number] ####[facility] ([facility])[address] [place] [address]CLTiw 42-73-0383Fzhdlpevywi distribution width (RBC) [Ratio]15.5 %High 11.5-15.0UnKettering Health PrebleComment on above:Performed By: #### [id number] #### [facility] ([facility]) [address] [place] [address]PWMKTAHTUCW MEAN CORPUSCULAR HEMOGLOBIN CONCENTRATION (G/DL) BY DQCHFFMYC85.4 g/dLLow32.0-35.0UnKettering Health PrebleComment on above:Performed By: #### [id number] #### [facility] ([facility]) [address] [place] [address]Lmrhmugyso (Bld) [Volume fraction]46.4 %Zpkmhk15.0-55.0 [facility] CenterComment on above:Performed By: #### [id number] #### [facility] ([facility]) [address] [place], [place] [address]Oqbitjrmik (Bld) [Mass/Vol]14.1 g/fRMpchff64.0-17.0UnKettering Health PrebleComment on above:Performed By: #### [id number] #### [facility] ([facility]) [address] [place] [address]IZL (RBC) [Entitic mass]26.4 pgLow27.0-33.0UnKettering Health PrebleComment on above:Performed By: #### [id number] #### [facility] ([facility]) [address] [place] [address]FUY (RBC) [Entitic vol]86.7 yGMviugj20.0-98.0UnKettering Health PrebleComment on above:Performed By: #### [id number] #### [facility] ([facility]) [address] [place], [place] [address]CJHSNYHEF (10*3/UL) IN BLOOD AUTOMATED [id number] 10*3/uLNormal 150-400UnKettering Health PrebleComment on above:Performed By: #### [id number] #### [facility] ([facility]) [address] [place] [address]KDJ (Bld) [#/Vol]5.35 10*6/uLNormal4.20-5.70UnKettering Health PrebleComment on above:Performed By: #### [id number] #### [facility] ([facility]) [address] [place] [address]CGE (Bld) [#/Vol]7.56 10*3/uLNormal4.00-10.60UnKettering Health PrebleComment on above:Performed By: #### [id number] #### [facility] ([facility]) [address] [place] [address]TQZCMCFjq [id number] Medicine and Rehabilitation Consult Note Patient not staffed by PM&R today due to surgery today for IMN placement. Our team will staff tomorrow, 09/25/23. Silvia Zaldivar MDNormalUniversity Parma Community General HospitalMAGNESIUMon [id number] [Mass/Vol]2.2 mg/dLNormal1.9-2.7UnKettering Health PrebleComment on above:Performed By: #### [id number] #### [facility] ([facility]) [address] [place] [address]SHPEIClm [id number] Attestation signed by Sandrine Field MD at 09/25/2024 8:00 AM By using [...] Operative Note Date: 09/23/2024 - 09/24/2024 Location: [facility] OR Name: Matty Garces, : [...] by intramedullary implant with interlocking screws [CPT: 82965] Stress exam of right ankle under anesthesia [CPT: 20053] Intraoperative use of fluoroscopy less than 1 hour by physician [CPT: 88679] Surgeons Primary: Sandrine Field MD Resident - Assisting: Bienvenido Trinidad MD; [...] x 34 mm interlocking screw Staff: Dial Refinisher: Emi Francis RN Director Of Contracts: CHARLINE Montejo Scrub Person: Araseli Butler CST Indications: Matty Garces is an 53 y.o. male who presented as a transfer from [facility] on 09/23/2024. Patient was transferred due to findings of a right distal third tibial shaft fracture after a fall in the shower. The fracture was closed and was subsequently reduced and splinted at [place] in a long-leg splint. Patient made stable [...] of the soft t (more content not included)...NormalUnKettering Health Preble PHOSPHORUSon 96-50-2713Avqrikjvx [Mass/Vol]4.0 mg/dLNormal2.5-5.0UnKettering Health PrebleComment on above:Performed By: #### [id number] #### [facility] ([facility]) [address] [place], [place] [address]SUHM GLUCOSE METER UNSOLICITED RESULTSon 76-89-3793Pxqdnny [Mass/Vol]100 mg/lAYofclw22-451OoygssoseuKettering Health PrebleComment on above:Order Comment: Waived Testing in the ED is performed under the ED CLIA certificate #[id number].Result Comment: [id number] By: #### [id number] #### [facility] ([facility] [address], [place] [address]OEVChg 28-28-2596SMGGPBGIB PARTIAL THROMBOPLASTIN TIME IN PPP BY COAGULATION ASSAY31.2 TakhpptQuzjyj64.0-35.0UnKettering Health Preble Comment on above:Result Comment: Clinical significance of the APTT is questionable in the presence of heparin.Performed By: #### [id number] ####[facility] ([employer])[address] [place], [place] [address]NRS WITH AUTO DIFFERENTIALon 61-77-9292Auvzriiyk (Bld) [#/Vol]0.05 10*3/uLNormal0.00-0.20 [facility] CenterComment on above:Performed By: #### [id number] ####[facility] (BEBR[facility]DA)[address] [place], [place] [address]Vmbmbakku/100 WBC (Bld)0.5 %Normal0.0-1.0UnKettering Health PrebleComment on above: Performed By: #### [id number] ####[facility] ([facility])[address] [facility] [place], [place] [address]Isgcbkcgbqb (Bld) [#/Vol]0.11 10*3/uLNormal0.00-0.50 [facility] CenterComment on above:Performed By: #### [id number] ####[facility] ([facility])[address] [place], [place] [address]Lkewwoztzbp/100 WBC (Bld)1.0 %Normal0.0-6.0UnKettering Health PrebleComment on above: Performed By: #### [id number] ####[facility] ([facility])[address] [place] [place], [place] [address]Lqbaapnmkvv distribution width (RBC) [Ratio]15.9 %High 11.5-15.0UnKettering Health PrebleComment on above:Performed By: #### [id number] ####[facility] ([facility])[address] [facility] [place] [address] ERYTHROCYTE MEAN CORPUSCULAR HEMOGLOBIN CONCENTRATION (G/DL) BY BISPNULBT17.3 g/dLLow32.0-35.0UnKettering Health PrebleComment on above:Performed By: #### [id number] ####[facility] ([facility])[address] [place], [place] [address]Nlqbszkinc (Bld) [Volume fraction]47.8 %Lbunwh36.0-55.0UnKettering Health PrebleComment on above:Performed By: #### [id number] ####[facility] ([facility])[address] [facility] [place] [place] [address]Hlajqzajbz (Bld) [Mass/Vol]14.5 g/dL Nqqzgn92.0-17.0UnKettering Health PrebleComment on above:Performed By: #### [id number] ####[facility] ([facility])[address] [facility] [place] [address] Immature granulocytes (Bld) [#/Vol]0.10 10*3/uLNormal0.00-0.20UnKettering Health PrebleComment on above:Performed By: #### [id number] ####[facility] ([facility])[address] [place], [place] [address]Szmfgdpl granulocytes/100 WBC (Bld)0.9 %Normal0.0-1.0UnKettering Health PrebleComment on above: Performed By: #### [id number] ####[facility] ([facility])[address] [place], [place] [address]Jjxfterzabh (Bld) [#/Vol]0.74 10*3/uLLow1.20-4.00UnKettering Health PrebleComment on above:Performed By: #### [id number] ####[facility] ([facility])[address] [place], [place] [address]Ykbqfmnzkfi/100 WBC (Bld) 7.0 %Low20.0-45.0UnKettering Health PrebleComment on above:Performed By: #### [id number] ####[facility] ([facility])[address] [place], [place] [address]EBU (RBC) [Entitic mass]26.4 pgLow27.0-33.0UnKettering Health PrebleComment on above:Performed By: #### [id number] ####[facility] ([facility])[address] [place], [place] [address]CGL (RBC) [Entitic vol]87.1 fLNormal 82.0-98.0UnKettering Health PrebleComment on above:Performed By: #### [id number] ####[facility] ([facility])[address] [place] [address] Monocytes (Bld) [#/Vol]0.73 10*3/uLNormal0.10-1.00UnKettering Health PrebleComment on above:Performed By: #### [id number] ####[facility] ([facility])[address] [place], [place] [address]Tadqrkjaz/100 WBC (Bld)6.9 %Normal 5.0-12.0UnKettering Health PrebleComment on above:Performed By: #### [id number] ####[facility] ([facility])[address] [place] [address] Neutrophils (Bld) [#/Vol]8.83 10*3/uLHigh1.60-7.60UnKettering Health PrebleComment on above:Performed By: #### [id number] ####[facility] ([facility])[address] [place] [address]Pfndbatqttp/100 WBC (Bld)83.7 %High 40.0-72.0UnKettering Health PrebleComment on above:Performed By: #### [id number] ####[facility] ([facility])[address] [place] [address]PUND (PER 100 WBCS) BY AUTOMATED COUNT0.0 %Rvewst4HxqkoqvyafKettering Health Preble Comment on above:Performed By: #### [id number] ####[facility] ([facility])[address] [place] [address]HYBAHHCUM (10*3/UL) IN BLOOD AUTOMATED HFMFW531 10*3/wOTvdtbu325-924CctfudwcmaKettering Health PrebleComment on above: Performed By: #### [id number] ####[facility] ([facility])[address] [place] [address]TAY (Bld) [#/Vol]5.49 10*6/uLNormal4.20-5.70UnKettering Health PrebleComment on above:Performed By: #### [id number] ####[facility] ([facility])[address] [place] [address]KVH (Bld) [#/Vol]10.56 10*3/uLNormal4.00-10.60UnKettering Health PrebleComment on above: Performed By: #### [id number] ####[facility] ([facility])[address] [place], [place] [address]OBNPSXCQNZGSX METABOLIC PANELon 23-94-7768Rhasetj [Mass/Vol] 3.9 g/dLNormal3.5-5.7UnKettering Health PrebleComment on above: Performed By: #### [id number] ####[facility] ([facility])[address] [place], [place] [address]ARH [Catalytic activity/Vol]98 U/FMtiqwz95-091KcafhkbdvcKettering Health PrebleComment on above:Performed By: #### [id number] ####[facility] ([facility])[address] [place] [address]RLS [Catalytic activity/Vol]34 U/L Normal7-52UnKettering Health PrebleComment on above:Performed By: #### [id number] ####[facility] ([facility])[address] [place], [place] [address]Yaoeg gap [Moles/Vol]11 mmol/LNormal7-20UnKettering Health PrebleComment on above:Performed By: #### [id number] ####[facility] ([facility])[address] [place], [place] [address]UEV [Catalytic activity/Vol]63 U/AUgci52-42VrbkbrkkcjKettering Health PrebleComment on above:Performed By: #### [id number] ####[facility] ([facility])[address] [place], [place] [address]Oqdzlugvz [Mass/Vol]0.7 mg/dL Normal0.3-1.0UnKettering Health PrebleComment on above:Performed By: #### [id number] ####[facility] ([facility])[address] [place] [address] Calcium [Mass/Vol]8.9 mg/dLNormal8.6-10.3UnK[facility] Health [facility] Comment on above:Performed By: #### [id number] ####[facility] ([facility])[address] [place], [place] [address]Nutzakkf [Moles/Vol]101 mmol/NDpuzxi78-401 [facility] CenterComment on above:Performed By: #### [id number] ####[facility] ([facility])[address] [place], [place] [address]UU6 [Moles/Vol] 27 mmol/HLdatul30-61SdzhqnqruuKettering Health PrebleComment on above: Performed By: #### [id number] ####[facility] ([facility])[address] [place] [address]Gpzhuvvksw [Mass/Vol]0.96 mg/dLNormal0.70-1.30UnKettering Health PrebleComment on above:Performed By: #### [id number] ####[facility] ([facility])[address] [place] [address]BZHGGMWGXJ FILTRATION RATE ML/MIN/1.73 SQ M.DIEJSMXVW07.9 mL/min/1.73m*2Normal>60.0UnK[facility] Health [facility] Comment on above:Result Comment: The [facility]???s estimated glomerular filtration rate (eGFR) will no longer include consideration of race in its calculation. The National Kidney Foundation???s eGFR Task Force developed new recommendations for the estimation of the glomerular filtration ra te in the [place] They recommend immediate implementation of the new equation refit without the race variable in all laboratories because the calculation does not include race. In addition to not including race in the calculation and reporting, it included diversity in its development, and has acceptable performance characteristics and potential consequences that do not disproportionately affect anyone group of individuals.Performed By: #### [id number] ####[facility] ([facility])[address] [place] [address]Knhpwbi [Mass/Vol]93 mg/wBCwrooi95-733HqscqevrlnKettering Health PrebleComment on above:Performed By: #### [id number] ####[facility] ([facility])[address] [place] [address]Wtwqspnjq [Moles/Vol]4.3 mmol/LNormal3.5-5.1UnKettering Health PrebleComment on above:Performed By: #### [id number] ####[facility] ([facility])[address] [place] [address]Grweexo [Mass/Vol]7.2 g/dLNormal 6.0-8.3UnKettering Health PrebleComment on above:Performed By: #### [id number] ####[facility] ([facility])[address] [place], [place] [address]Ilkfnm [Moles/Vol]135 mmol/AAcn543-581ActnyvwnnzKettering Health PrebleComment on above:Performed By: #### [id number] ####[facility] ([facility])[address] [place], [place] [address]Sucs nitrogen [Mass/Vol]8 mg/dLNormal7-25UnKettering Health PrebleComment on above:Performed By: #### [id number] ####[facility] ([facility])[address] [place], [place] [address]MRFN NITROGEN/CREATININE (MASS RATIO) IN SER/PLAS8.3NormalUniversMercy Health Kings Mills HospitalComment on above: Performed By: #### [id number] ####[facility] ([facility])[address] [place], [place] [address]ZUNOKRIsf 83-16-4172CBFSSCO Attestation signed by Sandrine Field MD at 09/24/2024 10:13 AM By using [...] this time and notes deformity. Denies any numbness/tingling/weakness. Denies any knee or other LE pain, [...] patient regarding conservative and operative options including risks/benefits/alternatives/indications, patient is agreeable to operative management via [...] plan was discussed in detail with Dr. Field. Gina Alvarez MD Orthopaedic Surgery, Resident Ortho Pager [phone] 09/23/24 6:55 PM May contact the on-call resident with any concerns via the Orthopaedic pager at any time.[facility] GeneralCT ABDOMEN PELVIS W IV CONTRASTon [id number] ABDOMEN PELVIS W IV CONTRASTClinical History and Information: Injury, pain, fall Findings: [...] PSA is advised. * Electronically signed: Fahad Frazier.[facility] GeneralCT CERVICAL SPINE WO IV CONTRASTon 72-98-3284NJ CERVICAL SPINE WO IV CONTRASTCT CERVICAL SPINE WO IV CONTRAST 09/23/2024 12:35 [...] acute fracture nor listhesis. Electronically signed: Fahad Frazier.[facility] GeneralCT CHEST W IV CONTRASTon [id number] CHEST W IV CONTRASTCT CHEST W IV CONTRAST 09/23/2024 12:32 PM [...] 3-4 months is recommended. Electronically signed: Fahad Frazier.[facility] GeneralCT HEAD WO IV CONTRASTon 43-74-1455ML HEAD WO IV CONTRASTClinical History and Information: Fall injury pain Findings: [...] unenhanced CT brain * Electronically signed: Fahad Frazier.[facility] GeneralCT TIBIA FIBULA RIGHT WO IV CONTRASTon 56-48-7551JJ TIBIA FIBULA RIGHT WO IV CONTRASTCT TIBIA FIBULA RIGHT WO IV CONTRAST 09/23/2024 [...] changes of the knee Electronically signed: Fahad Frazier.[facility] EDNURSon 44-23-5200KPVDEUBpvc of arrival (squad #, walk in, police, etc): [facility]S Chief complaint(s): Right leg fracture Arrival Note (brief scenario, 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 Patient arrives with Rt leg splintedNormalUniversToledo HospitalPROVon 92-63-0511HHHBXWCnauosu of Present Illness Chief Complaint Patient presents with Leg Injury Initial evaluation completed by Dr. Lang. Matty Garces is a 53 y/o male presenting to the ED with c/o leg injury. Pt was transferred from [facility] for right distal tibfib fracture. Pt [...] more angulation. Pt has hx of heart failure/cardiomyopathy. Pt states that he sees a neurologist [...] admit pt and recommended basic blood work. RESULTS Labs: Labs Reviewed PROTIME-INR - Abnormal Result [...] Procedure Abnormality Status --------- ------ CBC auto differential[[id number]] Abnormal Final result Please view results for these tests on the individual orders. TYPE AND SCREEN ABO G (more content not included)...NormalUnKettering Health Preble ETHANOLon 79-65-4816BABXHER (MG/DL) IN SER/PLAS<10Normal<10UnKettering Health PrebleComment on above:Performed By: #### [id number] #### [facility] ([facility]) [address] [place], [place] [address]XCPYOWC CALCULATED (%)<0.01NormalUniversMercy Health Kings Mills HospitalComment on above:Performed By: #### [id number] #### [facility] ([place]) [address] [place], [place] [address]SWzl 25-74-3218WPRvbndqstmf of [place] Trauma Surgery Chief Complaint: Trauma Fall Mechanism of Injury: 53 y.o. year old male who was brought in via EMS. He had no C-collar or back board in place. Circumstances of injury: Patient states that he was recently admitted to [place] for cellulitis to the [facility], he was discharged yesterday and this morning was home, he got out of bed to take a shower and had a micro seizure and heard his right ankle snap. Denies hitting head or LOC but admits that he doesn't remember the whole event. He went back to [place] ED where a right tib/fib fracture was found and patient was transferred to [facility] Of note patient is on anticoagulant/antiplatelets. Baby aspirin, however he was receiving Shots to prevent blood clots while inpatient at [place] Review of Systems: General: No For Chills, [...] Marijuana. Family History: pulled available information in [facility] from previous visits No family history [...] GCS 15 Neck: Cervica (more content not included)...NormalUnKettering Health PrebleLACTIC ACID, PLASMAon 40-13-4746WIUENPF (MMOL/L) IN SER/PLAS0.6 mmol/L Normal0.5-2.2UnKettering Health PrebleComment on above:Performed By: #### [id number] #### [facility] ([facility]) [address] [place], [place] [address]BWRQXBTHMoz 45-52-0807Hiymvuydf [Mass/Vol]1.8 mg/dLLow1.9-2.7 [facility] CenterComment on above:Performed By: #### [id number] ####[facility] ([facility]ER)[address] [place], [place] [address]ASTLSAUAXHwl 77-11-0537Kwztwyctt [Mass/Vol]3.5 mg/dLNormal2.5-5.0UnKettering Health PrebleComment on above:Performed By: #### [id number] #### [facility] ([facility]) [address] [place], [place] [address]XZNPKHD-AVUco 86-02-0739CYL IN PPP BY COAGULATION ASSAY1.28High 0.90-1.10UnKettering Health PrebleComment on above:Result Comment: ACCCP RECOMMENDED INR FOR WARFARIN THERAPY CONDITION INR PROPHYLAXIS OF VENOUS THROMBOSIS 2-3 (HIGH-RISK SURGERY) TREATMENT OF VENOUS THROMBOSIS 2-3 TREATMENT OF PULMONARY EMBOLISM 2-3 PREVENTION OF SYSTEMIC EMBOLISM: 2-3 ACUTE MYOCARDIAL INFARCTION TISSUE HEART VALVES VALVULAR HEART DISEASE ATRIAL FIBRILLATION RECURRENT SYSTEMIC EMBOLISM MECHANICAL HEART VALVE 2.5-3.5 FROM: ORAL ANTICOAGULANTS. MECHANISM OF ACTION, CLINICAL EFFECTIVENESS, AND OPTIMAL THERAPEUTIC RANGE. CHEST 1995;108:231S-246S.Performed By: #### [id number] #### [facility] [employer] [facility]) [address], [place] [address]YSBJSZVIPWD TIME (PT) IN PPP BY COAGULATION ASSAY15.9 Seconds High12.3-14.8UnKettering Health PrebleComment on above:Performed By: #### [id number] #### [facility] [employer] [facility]) [address] [place], [place] [address]GTQJJIXSWI PANEL URINEon 31-86-1386RSCXKIPTREX+METHAMPHETAMINE SCREEN (PRESENCE) IN URINENegativeNormalNegativeUnKettering Health PrebleComment on above:Performed By: #### [id number] #### [facility] [employer]) [address] [place], [place] [address]VLHWUPBZJXCG PRESENCE IN URINE BY SCREEN METHODNegativeNormal NegativeMetroHealth Parma Medical CenterComment on above:Performed By: #### [id number] #### [facility] ([facility]) [address] [place], [place] [address]Hpphoadlppxcppq Ql (U)NegativeNormalNegativeUnKettering Health PrebleComment on above:Performed By: #### [id number] #### [facility] ([facility]) [address] [place], [place] [address]SPBPVXZRCCJ (PRESENCE) IN URINE BY SCREEN METHODNegativeNormal NegativeMetroHealth Parma Medical CenterComment on above:Performed By: #### [id number] #### [facility] ([facility]) [address] [place], [place] [address]Vmhzske Ql (U)NegativeNormalNegativeMetroHealth Parma Medical CenterComment on above:Performed By: #### [id number] #### [facility] ([facility]) [address] [place], [place] [address]ILFECVRUQ (PRESENCE) IN URINE BY SCREEN METHODNegativeNormal NegativeMetroHealth Parma Medical CenterComment on above:Performed By: #### [id number] #### [facility] ([facility]) [address] [place], [place] [address]GJASHAP (PRESENCE) IN URINE BY SCREEN METHODPositiveAbnormal NegativeUnKettering Health PrebleComment on above:Performed By: #### [id number] #### [facility] ([facility]) [address] [place], [place] [address]MXBRPGVPXDQRH PRESENCE IN URINE BY SCREEN METHODNegativeNormal NegativeMetroHealth Parma Medical CenterComment on above:Performed By: #### [id number] #### [facility] ([facility]) [address] [place], [place] [address]Iucjbvvcpynn Screen Ql (U)NegativeNormalNegativeMetroHealth Parma Medical CenterComment on above:Performed By: #### [id number] #### [facility] ([facility]) [address] [place], [place] [address]JXGIDNLWO ANTIDEPRESSANTS (PRESENCE) IN URINENegativeNormal NegativeUnKettering Health PrebleComment on above:Performed By: #### [id number] #### [facility] ([facility]) [address] [place] [address]RKZDNXZW Ion 23-18-1718Uxobnemp I.cardiac [Mass/Vol]0.01 ng/mL Normal0.00-0.04UnKettering Health PrebleComment on above:Performed By: #### [id number] #### [facility] ([facility]) [address] [place] [address]VWKT AND SCREENon 70-96-5068GJ SCREENNegativeNormalUniSelect Medical Specialty Hospital - CincinnatiComment on above:Performed By: #### [id number] #### [facility] ([facility]) [address] [place] [address]OHK group Nom (Bld)ANormalULakeHealth TriPoint Medical Center Comment on above:Performed By: #### [id number] #### [facility] ([facility]) [address] [place] [address]US TYPE IN BLOODPositiveNormalUniSelect Medical Specialty Hospital - CincinnatiComment on above:Performed By: #### [id number] #### [facility] ([facility]) [address] [place] [address]PXYKZZYDFXxu 25-39-2415LKHATTNJO, TOTAL PRESENCE IN URINE NegativeNormalNegativeUnKettering Health PrebleComment on above:Order Comment: Microscopics not performed on urines with negative chemical reactions unless requested on original order.Performed By: #### [id number] ####[facility] ([facility])[address] [place], [place] [address]Edwkrlc (U)ClearNormalClear [facility] Medical CenterComment on above:Order Comment: Microscopics not performed on urines with negative chemical reactions unless requested on original order.Performed By: #### [id number] ####[facility] ([facility])[address] [place], [place] [address]Qehzd (U)YellowNormalColorless, Yellow, Light-YellowUnKettering Health PrebleComment on above:Order Comment: Microscopics not performed on urines with negative chemical reactions unless requested on original order.Performed By: #### [id number] ####[facility] ([facility])[address] [place], [place] [address]BDCVNRS (MG/DL) IN URINENormalNormal NormalUnKettering Health PrebleComment on above:Order Comment: Microscopics not performed on urines with negative chemical reactions unless requested on original order.Performed By: #### [id number] ####[facility] ([facility])[address] [place], [place] [address]IZFFTILIBL PRESENCE IN URINENegative NormalNegativeUnKettering Health PrebleComment on above:Order Comment: Microscopics not performed on urines with negative chemical reactions unless requested on original order.Performed By: #### [id number] ####[facility] ([facility])[address] [place], [place] [address]Ieswxxg Ql (U)NegativeNormalNegative [facility] Medical CenterComment on above:Order Comment: Microscopics not performed on urines with negative chemical reactions unless requested on original order.Performed By: #### [id number] ####[facility] ([facility])[address] [place], [place] [address]MKFUACJYX ESTERASE PRESENCE IN URINE BY TEST STRIP NegativeNormalNegativeUnKettering Health PrebleComment on above:Order Comment: Microscopics not performed on urines with negative chemical reactions unless requested on original order.Performed By: #### [id number] ####[facility] ([facility])[address] [place], [place] [address]HYHSCWW PRESENCE IN URINENegative NormalNegativeUnKettering Health PrebleComment on above:Order Comment: Microscopics not performed on urines with negative chemical reactions unless requested on original order.Performed By: #### [id number] ####[facility] ([facility])[address] [place], [place] [address]sG (U)6.0 [pH]Normal5.0-8.0UnKettering Health PrebleComment on above:Order Comment: Microscopics not performed on urines with negative chemical reactions unless requested on original order.Performed By: #### [id number] ####[facility] ([facility])[address] [place] [address]Llmkced (U) [Mass/Vol]NegativeNormalNegative [facility] Medical CenterComment on above:Order Comment: Microscopics not performed on urines with negative chemical reactions unless requested on original order.Performed By: #### [id number] ####[facility] ([facility])[address] [place] [address]Tgevqchx gravity (U) [Rel density]1.050High 1.010-1.030UnKettering Health PrebleComment on above:Order Comment: Microscopics not performed on urines with negative chemical reactions unless requested on original order.Performed By: #### [id number] ####[facility] ([facility])[address] [place] [place], [place] [address]LUDGGFJQFWNY (MG/DL) IN URINENormal NormalNormalUniversMercy Health Kings Mills HospitalComsurgeons choice medical center on above:Order Comment: Microscopics not performed on urines with negative chemical reactions unless requested on original order.Performed By: #### [id number] ####[facility] ([facility])[address] [place], [place] [address]CNIMJBX D 25 HYDROXYon 09-23-2024 CALCIDIOL (25 [place] VITAMIN D3) (NG/ML) IN SER/PLAS42.6 ng/mIKpjeuf40.0-80.0 [facility] CenterComment on above:Result Comment: >80.0 Toxicity possiblePerformed By: #### [id number] #### [facility] ([facility]) [address] [place], [place] [address]Xpdswnwzxvi Wound Cultureon [id number] Wound Culture ORGANISM: Methicillin Resis Staph Aureus (O:MRSA) Quantity of Growth Light Growth Aerobic ADAM Charge (PCMIC38) SUSCEPTIBILITY ORGANISM: O:MRSA ANTIBIOTIC INTERPRETATION ADAM Azithromycin R >4 Ceftaroline S 1 Clindamycin S 0.5 Daptomycin S 1 Linezolid S 4 Oxacillin R >2 Penicillin R >2 Tetracycline S <4 Trimethoprim/Sulfamethoxazole R >2 Vancomycin S 1 S = [...] RESISTANT TO ALL B-LACTAM DRUGS. PERFORMED BY: [place] [address] PATHOLOGIST DISTRIBUTION ANALYST STEVE ANGEL M.D.[facility] Southside Physician GroupComment on above: Performed By: #### CUSUP #### [place] [id number] USACT CSPINE WO CONon [id number] CSPINE WO CONEXAM: CT CSPINE WO CON 12/06/2022 5:22 AM [...] Electronically authenticated by: ANGEL JORDAN Date: 2022-12-06 06:37[facility] DublinCT FACIAL BONES WO CONon [id number] FACIAL BONES WO CONEXAM: CT FACIAL BONES WO CON 12/06/2022 5:22 [...] Electronically authenticated by: ANGEL JORDAN Date: 2022-12-06 06:41[facility] DublinCT HEAD WO CONon [id number] HEAD WO CONEXAM: CT HEAD WO CON 12/06/2022 5:22 AM [...] Electronically authenticated by: ANGEL JORDAN Date: 2022-12-06 06:39NoThe [facility] of [facility] Medical CenterXR ELBOW RT MIN 3 VIEWSon [id number] ELBOW RT MIN 3 VIEWS Exam: Radiographs: XR ELBOW RT MIN 3 VIEWS Reason for exam: Elbow pain Comparison: None IMPRESSION: Right elbow degenerative changes. Olecranon spur. Remainder of the right elbow is unremarkable. Electronically authenticated by: MICHAEL CASANOVA Date: 2022-12-06 07:22NoThe [facility] of [facility] Medical CenterXR FOREARM RT 2Von [id number] FOREARM RT 2VExam: Radiographs: XR FOREARM RT 2V Reason for exam: Forearm pain Comparison: None IMPRESSION: Mild degenerative changes in the right elbow and wrist. Right forearm is otherwise unremarkable. Electronically authenticated by: MICHAEL CASANOVA Date: 2022-12-06 08:07NoThe [facility] of [facility] Medical CenterPSA, FREE AND TOTAL RATIOon 12-03-2022% Free PSA9.0 %NormalThe [facility] Valley Medical Centerment on above:Result Comment: The table below lists the probability [...] free PSA for any other population of men.Performed By: #### PSAFREE #### [facility] [address] [place] [address] Dr. Shabnam RaeProstate specific Ag [Mass/Vol]5.9 ng/mLCritically high0.0-4.0The [facility] on above:Result Comment: Francheska ECLIA methodology. . According to the [place] [employer], Serum PSA should decrease and [...] of the presence or absence of malignant disease.Performed By: #### PSAFREE #### [facility] [address] [place] [address] Dr. Shabnam RaePSA, Free0.53 ng/mLNormalN/AThe [facility] CenterComsurgeons choice medical center on above:Result Comment: Francheska ECLIA methodology.Performed By: #### PSAFREE #### [facility] [address] [place], [place] [address] Dr. Shabnam RaeINSULINon 87-75-5722Drmkqnv47.2 uIU/mLNormal2.6-24.9The [facility] Medical Centerment on above:Performed By: #### PSASC #### [facility] [address] [place], [place] [address] Dr. Shabnam RaeTESTOSTERONE, TOTALon 03-23-8795Kpbupmtflpld [Mass/Vol]256 ng/dL Critically wqp321-447FdgOhio State University Wexner Medical CenterComment on above:Result Comment: Adult male reference interval is based on a population of healthy nonobese males (BMI <30) between 19 and 39 years old. adia Ch.al. JCEM 2017,102;4195-1738. PMID: [id number].Performed By: #### PSASC #### [facility] [address] [place] [address] Dr. Shabnam Dunham AUTO DIFFon [id number] #0.1 103/ulNormal0.0-0.1The [facility] CenterComment on above:Performed By: #### PSASC #### [facility] [address] [place] [address] Dr. Shabnam RaeBasophils/100 WBC (Bld)1.0 %Normal0.2-2.0[facility] Comment on above:Performed By: #### PSASC #### [facility] [address] [place] [address] Dr. Shabnam Rivera #0.1 103/ulNormal0.0-0.7The [facility] CenterComment on above: Performed By: #### PSASC #### [facility] [address] [place] [address] Dr. Shabnam Smaosinophils/100 WBC (Bld)1.8 %Normal0.9-7.0The [facility] Comment on above:Performed By: #### PSASC #### [facility] [address] [place] [address] Dr. Shabnam Samrythrocyte distribution width (RBC) [Ratio]14.8 %Ofmbtg58.0-15.0 The [facility] CenterComment on above:Performed By: #### PSASC #### [facility] [address] [place] [address] Dr. Shabnam RaeHematocrit (Bld) [Volume fraction]49.9 %Fnbnez09.0-54.0The [facility] CenterComment on above:Performed By: #### PSASC #### [facility] [address] [address] [address] Shabnam RaeHemoglobin (Bld) [Mass/Vol]16.0 g/kLZdgstk45.0-18.0The [facility] CenterComment on above:Performed By: #### PSASC #### [facility] [address] [place] [address] Dr. Shabnam Hayward #0.04 10e3/ulCritically high0.00-0.03The [facility] Comment on above:Performed By: #### PSASC #### [facility] [address] [place] [address] Dr. Shabnam Hayward %0.6 %Critically high0.0-0.5The [facility] CenterComment on above:Performed By: #### PSASC #### [facility] [address] [place] [address] Dr. Shabnam PandyaH #1.0 103/ulCritically low1.2-3.8The [facility] Comment on above:Performed By: #### PSASC #### [facility] [address] [place] [address] Dr. Shabnam Pandyahocytes/100 WBC (Bld)16.2 %Critically low20.5-60.0The [facility] CenterComment on above:Performed By: #### PSASC #### [facility] [address] [place] [address] Dr. Shabnam GranadoUAL DIFF REQNONormalThe [facility] CenterComment on above: Performed By: #### PSASC #### [facility] [address] [place] [address] Dr. Shabnam Nava (RBC) [Entitic mass]27.7 guFbwsvy23.9-34.0The [facility] CenterComment on above:Performed By: #### PSASC #### [facility] [address] [place] [address] Dr. Shabnam Nava (RBC) [Mass/Vol]32.1 g/tATivvfv21.9-35.2The [facility] CenterComment on above:Performed By: #### PSASC #### [facility] [address] [place] [address] Dr. Shabnam NavaV (RBC) [Entitic vol]86.3 xQOufvep15.0-94.0The [facility] CenterComment on above:Performed By: #### PSASC #### [facility] [address] [place] [address] Dr. Shabnam Mcfarland #0.5 103/ulNormal0.3-0.8The [facility] CenterComment on above:Performed By: #### PSASC #### [facility] [address] [place] [address] Dr. Shabnam Brunnerocytes/100 WBC (Bld)7.6 %Normal1.7-12.0The [facility] on above:Performed By: #### PSASC #### [facility] [address] [place] [address] Dr. Shabnam Medrano #4.6 103/ulNormal1.4-6.5The [facility] CenterComment on above:Performed By: #### PSASC #### [facility] [address] [place] [address] Dr. Shabnam Larautrophils/100 WBC (Bld)72.8 %Yzugyc95.0-75.0The [facility] Centerment on above:Performed By: #### PSASC #### [facility] [address] [place] [address] Dr. Shabnam Mendozalet mean volume (Bld) [Entitic vol]9.8 fLNormal9.5-13.5The [facility] CenterComment on above:Performed By: #### PSASC #### [facility] [address] [place] [address] Dr. Shabnam RaePLT203 103/gmTulqma313-153Fry [facility] CenterComment on above: Performed By: #### PSASC #### [facility] [address] [place] [address] Dr. Shabnam RaeRBC5.78 106/ulNormal4.70-6.10The Toño HospitalComment on above:Performed By: #### PSASC #### [facility] [address] [place] [address] [address] Shabnam RaeWBC6.3 103/ulNormal4.0-11.0The [facility] CenterComment on above: Performed By: #### PSASC #### [facility] [address] [place] [address] [address] Shabnam Simms THYROXINE INDEX T7on 87-04-5497XXE8.11Lonmjr5.30-4.50The [facility] on above:Performed By: #### TSH, CMP, LIPID, T7, URIC #### [facility] [address] [place] [address] Dr. Shabnam RaeT3U33.0 %Adqszl10.0-40.0The [facility] on above: Performed By: #### TSH, CMP, LIPID, T7, URIC #### [facility] [address] [place] [address] Dr. Shabnam RaeT4 [Mass/Vol]6.20 ug/dLNormal4.50-12.10The [facility] Comment on above:Performed By: #### TSH, CMP, LIPID, T7, URIC #### [facility] [address] [place] [address] Dr. Shabnam RaeGLYCOHEMOGLOBIN A1Con 17-60-2381IGI RECOMMENDATIONSEE BELOWNormal The [facility] CenterComsurgeons choice medical center on above:Result Comment: ADA RECOMMENDED LIMIT 4.0 - 6.0 ADA THERAPEUTIC TARGET < 7.0 ACTION SUGGESTED > 7.0Performed By: #### PSASC #### [facility] [address] [place] [address] Dr. Shabnam RaeGlucose [Mass/Vol]114 mg/dLNormalThOhioHealth Pickerington Methodist HospitalComsurgeons choice medical center on above:Performed By: #### PSASC #### [facility] [address] [place] [address] Dr. Shabnam RaeHbA1c (Bld) [Mass fraction]5.6 %Normal4.5-6.2The [facility] CenterComment on above:Performed By: #### PSASC #### [facility] [address] [place] [address] [address] Shabnam MarshallID PROFILEon 09-88-4383WXPP-HDL RATIO NORMSEE BELOWSelect Medical OhioHealth Rehabilitation Hospital - DublinComment on above:Result Comment: 3.3 - 4.4 LOW RISK 4.4 - 7.1 AVERAGE RISK 7.1 - 11.0 MODERATE RISK >11.0 HIGH RISKPerformed By: #### TSH, CMP, LIPID, T7, URIC #### [facility] [address] [address] [address] Shabnam RaeCholesterol [Mass/Vol]176 mg/dLNormal<=200[facility] Comment on above:Performed By: #### TSH, CMP, LIPID, T7, URIC #### [facility] [address] [place] [address] Dr. Shabnam RaeCholesterol in HDL [Mass/Vol]48 mg/xYRcxvcq76-62DrqOhio State University Wexner Medical CenterComment on above:Performed By: #### TSH, CMP, LIPID, T7, URIC #### [facility] [address] [place] [address] Dr. Shabnam Mckeonesterol in LDL [Mass/Vol]108.2 mg/dLNoThe [facility] CenterComsurgeons choice medical center on above:Performed By: #### TSH, CMP, LIPID, T7, URIC #### [facility] [address] [place] [address] [address] Shabnam Mckeonesteralissa.total/Cholesterol in HDL [Mass ratio]3.7 {ratio} NormalOhio State University Wexner Medical CenterComment on above:Performed By: #### TSH, CMP, LIPID, T7, URIC #### [facility] [address] [place] [address] [address] Shabnam Hanley NORMAL> or = 60 mg/dl - LOW CARDIOVASCULAR RISK <40 mg/dl - HIGH CARDIOVASCULAR RISKSelect Medical OhioHealth Rehabilitation Hospital - DublinComment on above:Performed By: #### TSH, CMP, LIPID, T7, URIC #### [facility] [address] [place] [address] Dr. Shabnam Basilio CALC NORMALSEE BELOWNoThe University of Toledo Medical CenterComment on above:Result Comment: <100 mg/dl OPTIMAL 100 - 129 mg/dl NEAR OR ABOVE OPTIMAL 130 - 159 mg/dl BORDERLINE HIGH 160 - 189 mg/dl HIGH >190 mg/dl VERY HIGH Performed By: #### TSH, CMP, LIPID, T7, URIC #### [facility] [address] [place] [address] Dr. Shabnam RaeTriglyceride [Mass/Vol]99 mg/dLNormal<=150The [facility] Comment on above:Performed By: #### TSH, CMP, LIPID, T7, URIC #### [facility] [address] [address] [address] hSabnam RaeVLDL CALC19.8 mg/dLNoThe [facility] of [facility] Medical CenterComment on above: Performed By: #### TSH, CMP, LIPID, T7, URIC #### [facility] [address] [place] [address] Dr. Shabnam Ortiz 14(COMP METB)on 32-76-8265Vdbaxez [Mass/Vol]4.1 g/dLNormal 3.4-5.0The [facility] Centerment on above:Performed By: #### TSH, CMP, LIPID, T7, URIC #### [facility] [address] [place] [address] Dr. Shabnam RaeAlbumin/Globulin [Mass ratio]1.1 {ratio}NormalThe [facility] CenterComment on above:Performed By: #### TSH, CMP, LIPID, T7, URIC #### [facility] [address] [place] [address] Dr. Shabnam Rizzo [Catalytic activity/Vol]101 U/SFleafi48-745Xoy [facility] CenterComment on above:Performed By: #### TSH, CMP, LIPID, T7, URIC #### [facility] [address] [place] [address] Dr. Shabnam Sofia [Catalytic activity/Vol]26 U/QUmkkao95-35Vwr [facility] Centerment on above:Performed By: #### TSH, CMP, LIPID, T7, URIC #### [facility] [address] [address] [address] Shabnam Johnsonon gap [Moles/Vol]10.1 mmol/LNormalThe [facility] Comment on above:Performed By: #### TSH, CMP, LIPID, T7, URIC #### [facility] [address] [place] [address] Dr. Shabnam RaeAST [Catalytic activity/Vol]19 U/IHuhjux23-53Drd [facility] CenterComment on above:Performed By: #### TSH, CMP, LIPID, T7, URIC #### [facility] [address] [place] [address] Dr. Shabnam RaeBilirubin [Mass/Vol]0.8 mg/dLNormal0.2-1.0The [facility] Comment on above:Performed By: #### TSH, CMP, LIPID, T7, URIC #### [facility] [address] [place] [address] Dr. Shabnam RaeCalcium [Mass/Vol]9.5 mg/dLNormal8.5-10.1[facility] Comment on above:Performed By: #### TSH, CMP, LIPID, T7, URIC #### [facility] [address] [place] [address] Dr. Shabnam RaeChloride [Moles/Vol]102 mmol/ATltwuz66-575Dep [facility] Comment on above:Performed By: #### TSH, CMP, LIPID, T7, URIC #### [facility] [address] [place] [address] Dr. Shabnam RaeCO2 [Moles/Vol]32.4 mmol/LCritically high21.0-32.0The [facility] CenterComment on above:Performed By: #### TSH, CMP, LIPID, T7, URIC #### [facility] [address] [place] [address] Dr. Shabnam RaeCreatinine [Mass/Vol]1.00 mg/dLNormal0.70-1.30The [facility] CenterComment on above:Performed By: #### TSH, CMP, LIPID, T7, URIC #### [facility] [address] [address] [address] Shabnam SamGFR-AF ARMENIAN>60Normal>=60The [facility] CenterComment on above:Performed By: #### TSH, CMP, LIPID, T7, URIC #### [facility] [address] [address] [address] Shabnam Rivera-NON AF ARMENIAN>60Normal>=60The [facility] CenterComment on above:Performed By: #### TSH, CMP, LIPID, T7, URIC #### [facility] [address] [place] [address] Dr. Shabnam RaeGlobulin (S) [Mass/Vol]3.8 g/dLNormalThe [facility] CenterComment on above:Performed By: #### TSH, CMP, LIPID, T7, URIC #### [facility] [address] [address] [address] Shabnam RaeGlucose [Mass/Vol]94 mg/mNFivomb37-587NvzOhio State University [facility] Medical Center Comment on above:Performed By: #### TSH, CMP, LIPID, T7, URIC #### [facility] [address] [address] [address] Shabnam RaePotassium [Moles/Vol]3.5 mmol/LNormal3.5-5.1The [facility] Comment on above:Performed By: #### TSH, CMP, LIPID, T7, URIC #### [facility] [address] [address] [address] Shabnam RaeProtein [Mass/Vol]7.9 g/dLNormal6.4-8.2The [facility] Comment on above:Performed By: #### TSH, CMP, LIPID, T7, URIC #### [facility] [address] [address] [address] Shabnam RaeSodium [Moles/Vol]141 mmol/BAhfofb604-332JjhOhio State University [facility] Comment on above:Performed By: #### TSH, CMP, LIPID, T7, URIC #### [facility] [address] [address] [address] Shabnam RaeUrea nitrogen [Mass/Vol]15.0 mg/dLNormal7.0-18.0The [facility] CenterComment on above:Performed By: #### TSH, CMP, LIPID, T7, URIC #### [facility] [address] [place] [address] Dr. Shabnam RaeUrea nitrogen/Creatinine [Mass ratio]15.0 mg/mgNormalThe [facility] CenterComment on above:Performed By: #### TSH, CMP, LIPID, T7, URIC #### [facility] [address] [address] [address] Shabnam RaeTSHomeaghan 56-03-4558NSV3.504 uIU/mLNormal0.358-3.740The [facility] CenterComment on above:Performed By: #### TSH, CMP, LIPID, T7, URIC #### [facility] [address] [place] [address] Dr. Shabnam RaeURIC ACID SERUMon 86-24-6867Hzlct [Mass/Vol]6.9 mg/dLNormal 3.5-7.2The [facility] CenterComment on above:Performed By: #### TSH, CMP, LIPID, T7, URIC #### [facility] [address] [place] [address] Dr. Shabnam RaeTESTOSTERONE, TOTALon 24-15-3480Qxsvrujrznzl [Mass/Vol]244 ng/dL Critically yvx989-362Uea [facility] on above:Result Comment: Adult male reference interval is based on a population of healthy nonobese males (BMI <30) between 19 and 39 years old. Dima et.al. JCEM 2017,102;2824-0095. PMID: [id number].Performed By: #### PSAFREE #### [facility] [address] [place] [address] Dr. Shabnam RaeTESTOSTERONE, FREE,DIRECT, TOTALon 75-62-8330Jpsk Testosterone(Direct)2.1 pg/mLCritically low7.2-24.0The [facility] Centerment on above:Result Comment: Performed at: BNPerformed By: #### CVDTBH #### [facility] [address] [place] [address] Dr. Shabnam RaeTestosterone [Mass/Vol]252 ng/dLCritically kqr519-113Qjr [facility] CenterComment on above:Result Comment: Adult male reference interval is based on a population of healthy nonobese males (BMI <30) between 19 and 39 years old. adia Ch.al. JCEM 2017,102;3568-5760. PMID: [id number]. Performed at: CBPerformed By: #### CVDTB #### [facility] [address] [address] [address] Shabnam RaeFormlaquita 35-95-2254Dkyrn [id number]#1.00CD:127[facility] Hospitalcreenson 66-71-0680Jukicgt [id number]#1.00CD:127[facility] [id number]#1.00CD:127[facility], IncUrology Office/Clinic Noteon 79-18-6044Nhvbxzl Office/Clinic NoteChief Complaint referred Hydrocele HPI Staff Matty is [...] recommended. US scrotum US done on 01/04/22 impressionshowed 3.8 cm complex septated right hydrocele, diffuse [...] to report, states he does not know), externalCT scan, US, labs and reports. new pt [...] if he start to have any pain, tenderness,soreness, redness to call office or go to the nearest ER. 2. 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 Not clinically noted today. Denies symptoms or other related issues. 3. BPH without urinary obstruction (N40.0: Benign prostatic hyperplasia without lower urinary tractsymptoms) IPSS- 5.5 EZEQUIEL-14 UA- clear/negative no signs [...] Ongoing No qualifying data (more content not included)...[facility], IncComment on above:Result Comment: Electronically Signed By: Viola Grullon MD\.br\Date and Time Signed: 02/26/22 00:20EDT\.br\Electronically Co-Signed By: Helen Leung\.br\Date and Time Co-Signed: 02/25/22 11:16 EDTAmbulatory Visit Summaryon 53-62-4312Zpkgscrrkm Visit Summary MATTY GARCES :1970 Visit Date:02/25/2022 Ambulatory Visit Instructions Your Diagnosis Hydrocele Varicocele BPH without urinary obstruction Tests Performed Urnls Dip Stick Auto w/o Microscopy POC 88333 Your Care Team Attending Physician - Mitchel DELGADO, Viola Cohn Primary Care Physician - Venus Jaeger MD [...] Urnls Dip Stick Auto w/o Microscopy POC 76284 (02/25/2022) Bilirubin Urine Dipstick - Negative Blood Urine Dipstick - Negative Glucose Urine Dipstick - Negative Ketones Urine Dipstick - Negative Leukocytes Urine Dipstick - Negative Nitrite Urine Dipstick - Negative Protein Urine Dipstick - Negative Specific [place] Urine Dipstick - >=1.030 Urine Appearance Urine Dipstick - Clear Urine Color Urine Dipstick - Yellow Urobilinogen Urine Dipstick - Normal 0.2-1 EU/dl pH Urine Dipstick - 5.5 Allergies Liver (Unknown) Education Materials Hydrocele, Adult A hydrocele is a collection of fluid in the loose pouch of skin that holds the testicles (scrotum).This may happen because: ? The amount of [...] the hydrocele for any changes. ? Take tdtz-xwa-hqcuzdm and prescription medicines only as told by [...] is not intended t (more content not included)...[facility] Educationon [id number] EducationUrology Hydrocele, Adult A hydrocele is a collection of fluid in the loose pouch of skin that holds the testicles (scrotum).This may happen because: ? The amount of fluid produced in the scrotum is not absorbed by the rest of the body. ? Fluid from the abdomen fills the scrotum. Normally, the testicles develop in the abdomen then move (drop) into to the scrotum before . The tube that the testicles travel through usually closesafter the testicles drop. If the tube does [...] the hydrocele for any changes. ? Take pcpp-vnw-drowgdq and prescription medicines only as told by [...] 02/17/2011 Document Revised: 09/10/2018 Document Reviewed: 09/10/2018 [employer] Patient Education ? 2019 [employer] ED Note-Physicianon [id number] Note-Physician [id number]#1.00CD:PradipTexas County Memorial HospitalarunaTwin City HospitalRAD - Ultrasound Reporton [id number] - Ultrasound Report [id number]#1.00CD:PradipSelect [facility], IncRAD - CT Reporton [id number] - CT Report [id number]#1.00CD:[address] [place], [place] [address]RAD - CT [id number]#1.00CD:[facility] City HospitalCBC AUTO DIFFon [id number] #0.0 103/ulNormal 0.0-0.1[facility] CenterComment on above:Performed By: #### PSAFREE #### [facility] [address] [address] [address] Shabnam RaeBasophils/100 WBC (Bld)0.6 %Normal0.2-2.0[facility] Comment on above:Performed By: #### PSAFREE #### [facility] [address] [address] [address] Shabnam Rivera #0.1 103/ulNormal0.0-0.7The [facility] CenterComment on above: Performed By: #### PSAFREE #### [facility] [address] [address] [address] Shabnam Samosinophils/100 WBC (Bld)2.1 %Normal0.9-7.0The [facility] Comment on above:Performed By: #### PSAFREE #### [facility] [address] [address] [address] Shabnam Samrythrocyte distribution width (RBC) [Ratio]13.1 %Vwkiml57.0-15.0 The [facility] CenterComment on above:Performed By: #### PSAFREE #### [facility] [address] [place] [address] Dr. Shabnam Fultonatocrit (Bld) [Volume fraction]43.1 %Jwbdmc66.0-54.0The [facility] CenterComment on above:Performed By: #### PSAFREE #### [facility] [address] [place] [address] Dr. Shabnam RaeHemoglobin (Bld) [Mass/Vol]13.7 g/dLCritically low14.0-18.0The [facility] CenterComment on above:Performed By: #### PSAFREE #### [facility] [address] [place] [address] Dr. Shabnam Hayward #0.04 10e3/ulCritically high0.00-0.03The [facility] Comment on above:Performed By: #### PSAFREE #### [facility] [address] [place] [address] Dr. Shabnam Hayward %0.6 %Critically high0.0-0.5The [facility] CenterComment on above:Performed By: #### PSAFREE #### [facility] [address] [place] [address] Dr. Shabnam Gomez #0.9 103/ulCritically low1.2-3.8The [facility] Comment on above:Performed By: #### PSAFREE #### [facility] [address] [place] [address] Dr. Shabnam Diazmphocytes/100 WBC (Bld)13.1 %Critically low20.5-60.0The [facility] CenterComment on above:Performed By: #### PSAFREE #### [facility] [address] [place] [address] Dr. Shabnam GranadoUAL DIFF REQNONormalThe [facility] CenterComment on above: Performed By: #### PSAFRPRISCILLA #### [facility] [address] [place] [address] Dr. Shanbam Tovar (RBC) [Entitic mass]29.5 nbMlszce01.9-34.0The [facility] CenterComment on above:Performed By: #### PSAFREE #### [facility] [address] [place] [address] Dr. Shabnam Nava (RBC) [Mass/Vol]31.8 g/vDWrvbsc46.9-35.2The [facility] CenterComment on above:Performed By: #### PSAFREE #### [facility] [address] [place] [address] Dr. Shabnam NavaV (RBC) [Entitic vol]92.9 yDCbmptk68.0-94.0The [facility] CenterComment on above:Performed By: #### PSAFREE #### [facility] [address] [place] [address] Dr. Shabnam Mcfarland #0.4 103/ulNormal0.3-0.8The [facility] CenterComment on above:Performed By: #### PSAFREE #### [facility] [address] [place] [address] Dr. Shabnam Brunnerocytes/100 WBC (Bld)5.4 %Normal1.7-12.0The [facility] Comment on above:Performed By: #### PSAFREE #### [facility] [address] [place] [address] Dr. Shabnam Medrano #5.2 103/ulNormal1.4-6.5The [facility] CenterComment on above:Performed By: #### PSAFREE #### [facility] [address] [place] [address] Dr. Shabnam Larautrophils/100 WBC (Bld)78.2 %Critically high43.0-75.0The [facility] CenterComment on above:Performed By: #### PSAFREE #### [facility] [address] [place] [address] Dr. Shabnam Mendozalet mean volume (Bld) [Entitic vol]10.9 fLNormal9.5-13.5The [facility] CenterComment on above:Performed By: #### PSAFRPRISCILLA #### [facility] [address] [place] [address] Dr. Shabnam RaePLT153 103/krCyzqlz037-011Hwi [facility] CenterComment on above: Performed By: #### PSAFRPRISCILLA #### [facility] [address] [place] [address] Dr. Shabnam RaeRBC4.64 106/ulCritically low4.70-6.10The [facility] CenterComment on above:Performed By: #### PSAFRPRISCILLA #### [facility] [address] [place] [address] Dr. Shabnam RaeWBC6.6 103/ulNormal4.0-11.0The [facility] CenterComment on above: Performed By: #### PSAFRPRISCILLA #### [facility] [address] [place] [address] Dr. Shabnam Bang 38-57-6678DXR8.9 mg/dLNormal<=1.0[facility] on above:Performed By: #### PSAFRPRISCILLA #### [facility] [address] [place] [address] Dr. Shabnam Ortiz 14(COMP METB)on 49-62-4779Naocmzh [Mass/Vol]3.6 g/dLNormal 3.4-5.0The [facility] CenterComment on above:Performed By: #### PSAFRPRISCILLA #### [facility] [address] [place] [address] Dr. Shabnam RaeAlbumin/Globulin [Mass ratio]1.0 {ratio}NormalThe [facility] CenterComment on above:Performed By: #### PSAFRPRISCILLA #### [facility] [address] [place] [address] Dr. Shabnam Rizzo [Catalytic activity/Vol]114 U/VNbidlf50-341Pwo [facility] Centerment on above:Performed By: #### PSAFRPRISCILLA #### [facility] [address] [place] [address] Dr. Shabnam Sofia [Catalytic activity/Vol]26 U/TFghgyt06-20Fwb [facility] CenterComment on above:Performed By: #### PSAFREE #### [facility] [address] [place] [address] Dr. Shabnam Johnsonon gap [Moles/Vol]9.3 mmol/LNormalThe [facility] CenterComment on above:Performed By: #### PSAFREE #### [facility] [address] [place] [address] Dr. Shabnam RaeAST [Catalytic activity/Vol]19 U/CRljfio17-55Nxa [facility] CenterComment on above:Performed By: #### PSAFREE #### [facility] [address] [place] [address] Dr. Shabnam RaeBilirubin [Mass/Vol]0.5 mg/dLNormal0.2-1.0The [facility] Comment on above:Performed By: #### PSAFREE #### [facility] [address] [place] [address] Dr. Shabnam RaeCalcium [Mass/Vol]8.9 mg/dLNormal8.5-10.1The [facility] Comment on above:Performed By: #### PSAFREE #### [facility] [address] [place] [address] Dr. Shabnam RaeChloride [Moles/Vol]106 mmol/KIlknwl88-911Dux [facility] Comment on above:Performed By: #### PSAFREE #### [facility] [address] [place] [address] Dr. Shabnam RaeCO2 [Moles/Vol]30.7 mmol/CWfotox37.0-32.0The [facility] Comment on above:Performed By: #### PSAFREE #### [facility] [address] [place] [address] Dr. Shabnam RaeCreatinine [Mass/Vol]1.15 mg/dLNormal0.70-1.30The [facility] CenterComment on above:Performed By: #### PSAFREE #### [facility] [address] [place] [address] Dr. Shabnam SamGFR-AF ARMENIAN>60Normal>=60The [facility] CenterComment on above:Performed By: #### PSAFREE #### [facility] [address] [place] [address] Dr. Shabnam SamGFR-NON AF ARMENIAN>60Normal>=60The [facility] CenterComment on above:Performed By: #### PSAFREE #### [facility] [address] [place] [address] Dr. Shabnam RaeGlobulin (S) [Mass/Vol]3.6 g/dLNormalThe [facility] CenterComment on above:Performed By: #### PSAFREE #### [facility] [address] [place] [address] Dr. Shabnam RaeGlucose [Mass/Vol]117 mg/dLCritically arwt18-689Yqk [facility] CenterComment on above:Performed By: #### PSAFREE #### [facility] [address] [place] [address] Dr. Shabnam RaePotassium [Moles/Vol]4.0 mmol/LNormal3.5-5.1The [facility] Comment on above:Performed By: #### PSAFREE #### [facility] [address] [place] [address] Dr. Shabnam RaeProtein [Mass/Vol]7.2 g/dLNormal6.1-8.2The [facility] Comment on above:Performed By: #### PSAFREE #### [facility] [address] [place] [address] Dr. Shabnam RaeSodium [Moles/Vol]142 mmol/IBpzqhf565-147Onc [facility] Comment on above:Performed By: #### PSAFREE #### [facility] [address] [place] [address] Dr. Shabnam RaeUrea nitrogen [Mass/Vol]15.0 mg/dLNormal7.0-18.0The [facility] CenterComment on above:Performed By: #### PSAFREE #### [facility] [address] [place] [address] Dr. Shabnam RaeUrea nitrogen/Creatinine [Mass ratio]13.0 mg/mgNoThe [facility] Medical CenterComment on above:Performed By: #### PSAFREE #### [facility] [address] [address] [address] Shabnam Floyd SCROTUMon 25-48-1199IR SCROTUMEXAMINATION: US SCROTUM HISTORY: Acute pelvic pain COMPARISON: [...] Electronically authenticated by: ALVINA CAICEDO Date: 2022-01-05 08:48[facility] DublinCB AUTO DIFFon [id number] #0.1 103/ulNormal0.0-0.1The [facility] CenterComment on above:Performed By: #### CBC #### [facility] [address] [place] [address] Dr. Shabnam RaeBasophils/100 WBC (Bld)0.8 %Normal0.2-2.0[facility] Comment on above:Performed By: #### CBC #### [facility] [address] [address] [address] Shabnam Rivera #0.1 103/ulNormal0.0-0.7The [facility] CenterComment on above: Performed By: #### CBC #### [facility] [address] [address] [address] Shabnam Samosinophils/100 WBC (Bld)1.5 %Normal0.9-7.0The [facility] Comment on above:Performed By: #### CBC #### [facility] [address] [place] [address] Dr. Shabnam Samrythrocyte distribution width (RBC) [Ratio]12.8 %Tkrned11.0-15.0 [facility] CenterComment on above:Performed By: #### CBC #### [facility] [address] [place] [address] Dr. Shabnam RaeHematocrit (Bld) [Volume fraction]40.3 %Critically low42.0-54.0 [facility] CenterComment on above:Performed By: #### CBC #### [facility] [address] [place] [address] Dr. Shabnam RaeHemoglobin (Bld) [Mass/Vol]13.4 g/dLCritically low14.0-18.0[facility] CenterComment on above:Performed By: #### CBC #### [facility] [address] [address] [address] Shabnam Hayward #0.03 10e3/ulNormal0.00-0.03The [facility] CenterComment on above:Performed By: #### CBC #### [facility] [address] [place] [address] Dr. Shabnam Hayward %0.5 %Normal0.0-0.5The [facility] CenterComment on above: Performed By: #### CBC #### [facility] [address] [place] [address] Dr. Shabnam Gomez #1.0 103/ulCritically low1.2-3.8The [facility] Comment on above:Performed By: #### CBC #### [facility] [address] [address] [address] Shabnam Diazmphocytes/100 WBC (Bld)16.4 %Critically low20.5-60.0The [facility] CenterComment on above:Performed By: #### CBC #### [facility] [address] [place] [address] Dr. Shabnam Daniel DIFF REQNONormalThe [facility] CenterComment on above: Performed By: #### CBC #### [facility] [address] [address] [address] Shabnam Nava (RBC) [Entitic mass]29.5 egLxbfnh31.9-34.0The [facility] CenterComment on above:Performed By: #### CBC #### [facility] [address] [place] [address] Dr. Shabnam Nava (RBC) [Mass/Vol]33.3 g/vJYfopsx74.9-35.2The [facility] CenterComment on above:Performed By: #### CBC #### [facility] [address] [place] [address] Dr. Shabnam NavaV (RBC) [Entitic vol]88.8 yGUrrwvt31.0-94.0The [facility] CenterComment on above:Performed By: #### CBC #### [facility] [address] [place] [address] Dr. Shabnam Mcfarland #0.6 103/ulNormal0.3-0.8The [facility] CenterComment on above:Performed By: #### CBC #### [facility] [address] [place] [address] Dr. Shabnam Brunnerocytes/100 WBC (Bld)9.6 %Normal1.7-12.0The [facility] Comment on above:Performed By: #### CBC #### [facility] [address] [place] [address] Dr. Shabnam Medrano #4.4 103/ulNormal1.4-6.5The Toño HospitalComment on above:Performed By: #### CBC #### [facility] [address] [place] [address] Dr. Shabnam Larautrophils/100 WBC (Bld)71.2 %Qaarrt29.0-75.0The [facility] CenterComment on above:Performed By: #### CBC #### [facility] [address] [place] [address] Dr. Shabnam RaePlatelet mean volume (Bld) [Entitic vol]10.8 fLNormal9.5-13.5The [facility] CenterComment on above:Performed By: #### CBC #### [facility] [address] [place] [address] Dr. Shabnam RaePLT158 103/dtTbzgsv634-154Gfk [facility] CenterComment on above: Performed By: #### CBC #### [facility] [address] [place] [address] Dr. Shabnam RaeRBC4.54 106/ulCritically low4.70-6.10The [facility] CenterComment on above:Performed By: #### CBC #### [facility] [address] [place] [address] Dr. Shabnam RaeWBC6.2 103/ulNormal4.0-11.0The [facility] CenterComment on above: Performed By: #### CBC #### [facility] [address] [place] [address] Dr. Shabnam RaeCT ABD/PELV W CONon 01-18-9489HP ABD/PELV W CONCT ABD/PELV W CON: 01/04/2022 3:37 AM EDT [...] Electronically authenticated by: MAYRA BERNAL Date: 2022-01-04 05:19Normal The [facility] CenterCT PELVIS WO CONon 57-74-0062NM PELVIS WO CONEXAMINATION: CT PELVIS WO CON 01/04/2022 COMPARISON: CT [...] Electronically authenticated by: MANUEL BRENNANH Date: 2022-01-04 08:54NormHarrison Community HospitalCULTURE URINEon 70-19-6382KITXYXU URINECulture Observations: No growthNoThe University [facility]edo Medical CenterComment on above:Performed By: #### PSASC #### [facility] [address] [place] [address] Dr. Shabnam Mckinney-19 PCR ([facility])on 02-35-7052ZSPJ-CoV-2 (COVID-19) RNA ELIJAH+probe Ql (Unsp spec)Not detectedNormalNOT DETECTEDThe [facility] Comment on above:Result Comment: When diagnostic testing is negative, the possibility of a false negative should be considered in the context of a patient's recent exposures and the presence of clinical signs and symptoms consistent with SARS-CoV-2. This test is not yet approved or cleared by the [place] Food and Drug Administration (FDA). This test was developed by [employer], [place], [place]. The performance characteristics of this test were validated by The [facility]. The results are not intended to be used as the sole means for clinical diagnosis or patient management decisions. The [facility] is authorized under Clinical Laboratory [...] for this test is supported by the Control Specialist of Health and Human Service's declaration [...] which the test may no longer be used).Performed By: #### CVDTBH #### [facility] [address] [place] [address] Dr. Shabnam Cedillo URINE PROFILEon 51-47-9323Zkojexytl Ql (U)NegativeNormal NEGATIVEOhio State University Wexner Medical CenterComment on above:Performed By: #### PSASC #### [facility] [address] [place] [address] Dr. Shabnam Staufferarity (U)CLEARNormalCLEAROhio State University Wexner Medical CenterComment on above: Performed By: #### PSASC #### [facility] [address] [place] [address] Dr. Shabnam Mason (U)YELLOWNormalYELLOWOhio State University Wexner Medical CenterComment on above: Performed By: #### PSASC #### [facility] [address] [place] [address] Dr. Shabnam Plummer micrscopic examination will be performed if indicated. NormalOhio State University Wexner Medical CenterComment on above:Performed By: #### PSASC #### [facility] [address] [place] [address] Dr. Shabnam RaeGlucose Ql (U)NegativeNormalNEGATIVEOhio State University Wexner Medical CenterComment on above:Performed By: #### PSASC #### [facility] [address] [place] [address] Dr. Shabnam RaeHemoglobin Ql (U)NegativeNormalNEGATIVEKettering Health – Soin Medical Center on above:Performed By: #### PSASC #### [facility] [address] [place] [address] Dr. Shabnam RaeKetones Ql (U)NegativeNormalNEGATIVEOhio State University Wexner Medical CenterComment on above:Performed By: #### PSASC #### [facility] [address] [place] [address] Dr. Shabnam RaeLEUKOCYTESNegativeNormalNEGATIVEThe [facility] CenterComment on above:Performed By: #### PSASC #### [facility] [address] [place] [address] Dr. Shabnam Shoretrite Ql (U)NegativeNormalNEGATIVEThe [facility] CenterComment on above:Performed By: #### PSASC #### [facility] [address] [place] [address] Dr. Shabnam RaepH (U)6.5 [pH]Normal5-9The [facility] CenterComment on above: Performed By: #### PSASC #### [facility] [address] [place] [address] Dr. Shabnam RaeSPEC GRAVITY1.584Kjxnix7.005-<=1.025The [facility] CenterComment on above:Performed By: #### PSASC #### [facility] [address] [place] [address] Dr. Shabnam Martínez PROTEINNegativeNormalNEGATIVE/ TRACEThe [facility] Comment on above:Performed By: #### PSASC #### [facility] [address] [place] [address] Dr. Shabnam Sidhu MICRO INDNOT INDICATEDNoThe [facility] CenterComment on above:Performed By: #### PSASC #### [facility] [address] [place] [address] Dr. Shabnam RaeUrobilinogen Qn (U)0.2 {Sarai'U}/dLNormal0.2 - 1.0The [facility] CenterComment on above:Performed By: #### PSASC #### [facility] [address] [place] [address] Dr. Shabnam RaeLACTATE/LACTIC ACIDon 50-57-6358Mjiroau [Moles/Vol]1.0 mmol/L Normal0.4-2.0The [facility] CenterComment on above:Performed By: #### PSASC #### [facility] [address] [place] [address] Dr. Shabnam RaePROF CHEM 8 (BAS METB)on 94-97-9064Oudmz gap [Moles/Vol]10.0 mmol/LNormalOhio State University Wexner Medical CenterComment on above:Performed By: #### BMP #### [facility] [address] [address] [address] Shabnam RaeCalcium [Mass/Vol]8.5 mg/dLNormal8.5-10.1The [facility] Comment on above:Performed By: #### BMP #### [facility] Laboratory [address] [address] [address] Shabnam RaeChloride [Moles/Vol]103 mmol/QWdzmls87-210Gbr [facility] Comment on above:Performed By: #### BMP #### [facility] [address] [place] [address] Dr. Shabnam RaeCO2 [Moles/Vol]29.2 mmol/GDcwqma66.0-32.0The [facility] Comment on above:Performed By: #### BMP #### [facility] [address] [place] [address] Dr. Shabnam RaeCreatinine [Mass/Vol]1.25 mg/dLNormal0.70-1.30The [facility] CenterComment on above:Performed By: #### BMP #### [facility] [address] [place] [address] Dr. Shabnam SamGFR-AF ARMENIAN>60Normal>=60The [facility] CenterComment on above:Performed By: #### BMP #### [facility] [address] [place] [address] Dr. Shabnam SamGFR-NON AF ARMENIAN>60Normal>=60The [facility] CenterComment on above:Performed By: #### BMP #### [facility] [address] [place] [address] Dr. Shabnam RaeGlucose [Mass/Vol]132 mg/dLCritically noob97-400Qqq [facility] CenterComment on above:Performed By: #### BMP #### [facility] [address] [place] [address] Dr. Shabnam RaePotassium [Moles/Vol]3.2 mmol/LCritically low3.5-5.1The [facility] CenterComment on above:Performed By: #### BMP #### [facility] [address] [address] [address] Shabnam RaeSodium [Moles/Vol]139 mmol/ANpqrtk165-484Liv [facility] Comment on above:Performed By: #### BMP #### [facility] [address] [address] [address] Shabnam RaeUrea nitrogen [Mass/Vol]19.0 mg/dLCritically high7.0-18.0The [facility] CenterComment on above:Performed By: #### BMP #### [facility] [address] [address] [address] Shabnam RaeUrea nitrogen/Creatinine [Mass ratio]15.2 mg/mgNormalThe [facility] CenterComment on above:Performed By: #### BMP #### [facility] [address] [address] [address] Shabnam RaeCERVICAL SPINE 2 OR 3 [facility] [id number] SPINE 2 OR 3 [facility] Department of Radiology [address] [place] [phone] Patient Name: MATTY GARCES : 1970 Sex: M Age: Race: White Pt. Location: Patient Status: O Ordered Date: 07/06/2019 9:10:00 AM Completed Date: 07/06/2019 09:21 AM Requesting Provider: LUCIANO DAVIS Attending Provider: LUCIANO DAVIS Report Copy To: VENUS JAEGER Signs & Symptoms: M48.02 Spinal stenosis, cervical region I10 History: [place] Comments: , STAT READ , STAT READ , , , Ordering Provider - LUCIANO DAVIS MD , Exam: CERVICAL SPINE 2 OR 3 [facility] CERVICAL SPINE 2 OR 3 S 07/06/2019 [...] findings. Electronically signed by:Bernice Hoyt. Transcribed by: [email or web address], User Resident: RADHA CHIN Electronically Signed by: BERNICE HOYT @ 07/06/2019 08:52 PM I personally read this/these film(s) with this residentNormalThe University [facility] Medical CenterComment on above:Order Comment: , STAT READ , STAT READ , , , Ordering Provider - LUCIANO DAVIS MD , CERVICAL SPINE 2 OR 3 Son [id number] SPINE 2 OR 3 [facility] of [facility] [address] [place] [phone] Patient Name: MATTY GARCES : 1970 [...] study. Electronically signed by:Bernice Hoyt. Transcribed by: [email or web address], User Resident: Electronically Signed by: BERNICE HOYT @ 04/06/2019 04:40 PMNormalThe [facility] CenterComment on above:Order Comment: AP/LAT, ODONTOID PLEASE DO SWIMMER'S VIEW FOLLOW UP HARDWARE AND ALIGNMENT, S/P ACDF, RECENT FALLSCERVICAL SPINE 2 OR 3 [facility] [id number] SPINE 2 OR 3 [facility] Department of Radiology [address] [place] [phone] Patient Name: MATTY GARCES : 1970 [...] findings. Electronically signed by:Bella King. Transcribed by: [email or web address], User Resident: KENNETH DUVAL Electronically Signed by: BELLA KING @ 02/20/2019 11:53 AM I personally read this/these film(s) with this residentNoGalion Hospitale [facility] CenterComment on above:Order Comment: C-SPINE 2 OR 3 VIEW POSTOP, EVALUATION HARDWARE AN ALIGNMENTBASIC METABOLIC PANELon [id number] [Mass/Vol]9.2 mg/dLNormal8.6-10.3The [facility] CenterComment on above:Order Comment: No: Do not add to previous drawPerformed By: #### 76003 #### [facility] [address] [place] [address], USAChloride [Moles/Vol]101 mmol/EUuzume70-648Fcr [facility] CenterComment on above:Order Comment: No: Do not add to previous drawPerformed By: #### 06161 #### [facility] [address] [place] [address], USACO2 [Moles/Vol]26 mmol/JIkqyog72-25Qrm [facility] CenterComment on above:Order Comment: No: Do not add to previous draw Performed By: #### 71787 #### [facility] [address] [place] [address], USACreatinine [Mass/Vol]1.02 mg/dLNormal0.70-1.30The [facility] CenterComment on above:Order Comment: No: Do not add to previous drawPerformed By: #### 15639 #### [facility] [address] [place] [address], USAGFR/1.73 sq M predicted among blacks MDRD (S/P/Bld) [Vol rate/Area]mL/min/{1.73_m2}Normal>60The [facility] Comment on above:Order Comment: No: Do not add to previous drawPerformed By: #### 70275 #### [facility] [address] [place] [address], USAGFR/1.73 sq M predicted among non-blacks MDRD (S/P/Bld) [Vol rate/Area]mL/min/{1.73_m2}Normal>60The [facility] Comment on above:Order Comment: No: Do not add to previous drawPerformed By: #### 83319 #### [facility] [address] [place] [address], USAGlucose [Mass/Vol]124 mg/xAKwcw46-554Oqa [facility] CenterComment on above:Order Comment: No: Do not add to previous drawPerformed By: #### 14141 #### [facility] [address] [place] [address], USAPotassium [Moles/Vol]3.9 mmol/LNormal3.5-5.1The [facility] CenterComment on above:Order Comment: No: Do not add to previous drawPerformed By: #### 34645 #### [facility] [address] [place] [address], USASodium [Moles/Vol]137 mmol/JSnarwe305-999Hob [facility] CenterComment on above:Order Comment: No: Do not add to previous drawPerformed By: #### 85501 #### [facility] [address] [place] [address], USAUrea nitrogen [Mass/Vol]15 mg/dLNormal7-25The [facility] CenterComment on above:Order Comment: No: Do not add to previous drawPerformed By: #### 02758 #### [facility] [address] [place] [address], [facility] HOSPITALCBC COMPLETE BLOOD COUNTon 86-39-7442Gligrzljlxb distribution width (RBC) [Ratio]13.9 %Vktmha68.5-15.0The [facility] CenterComment on above:Order Comment: No: Do not add to previous draw Performed By: #### 17327 #### [facility] [address] [place] [address], USAHematocrit (Bld) [Volume fraction]50.0 %Ieglhc31.0-50.0The [facility] CenterComment on above:Order Comment: No: Do not add to previous drawPerformed By: #### 74146 #### [facility] [address] [place] [address], USAHemoglobin (Bld) [Mass/Vol]16.0 g/wAUhnhlm89.0-17.0The [facility] CenterComment on above:Order Comment: No: Do not add to previous drawPerformed By: #### 08375 #### [facility] [address] [place] [address], [facility] (RBC) [Entitic mass]27.5 cbJususf73.0-33.0The [facility] CenterComment on above:Order Comment: No: Do not add to previous drawPerformed By: #### 61031 #### [facility] [address] [place] [address], [facility]STERHC (RBC) [Mass/Vol]32.0 g/qSCfwwew51.0-35.0The [facility] CenterComment on above:Order Comment: No: Do not add to previous drawPerformed By: #### 43307 #### [facility] [address] [place] [address], [facility] MCALESTERV (RBC) [Entitic vol]85.9 rOPldkfv96.0-98.0The [facility] CenterComment on above:Order Comment: No: Do not add to previous drawPerformed By: #### 66727 #### [facility] [address] [place] [address], [facility] HOSPITALNucleated RBC/100 WBC (Bld) [Ratio]0 %Normal0-0The [facility] CenterComment on above:Order Comment: No: Do not add to previous drawPerformed By: #### 27377 #### [facility] [address] [place] [address], USAPLAT PEW882 10*3/qCWoeyjy462-704Jhw [facility] CenterComment on above:Order Comment: No: Do not add to previous draw Performed By: #### 70172 #### [facility] [address] [place] [address], [facility] HOSPITALRBC (Bld) [#/Vol]5.82 10*6/uLHigh4.20-5.70The [facility] CenterComment on above:Order Comment: No: Do not add to previous drawPerformed By: #### 85832 #### [facility] [address] [place] [address], [facility] HOSPITALWBC (Bld) [#/Vol]15.85 10*3/uLHigh4.00-10.60The [facility] CenterComment on above:Order Comment: No: Do not add to previous drawPerformed By: #### 41384 #### [facility] [address] [place] [address], [facility] HOSPITALOperative Reporton [id number] ReportMR#: [id number] I [facility] Pt. Name: Matty Garces Room #: [id number] Discharge Date: Birthdate: 1970 OPERATIVE REPORT DATE OF SURGERY: 01/30/2019 SURGEON: Luciano Davis M.D. 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 POSTOPERATIVE DIAGNOSIS: Failed instrumentation at C6-7 on the right. SEAPORT PLANNING MANAGER: ADENIKE Lugo. ANESTHESIA: Endotracheal, Hogan. PROCEDURES: Redo [...] Davis M.D. Date Trans: 01/31/2019 02:31 Mark DN_JN:[id number] cc: Venus Jaeger M.D. [address], [facility] [place] [address]NjggtyMjvMiddletown HospitalCERVICAL SPINE 2 OR 3 [facility] [id number] SPINE 2 OR 3 [facility] of [facility]iology [address] [place] [address] Patient Name: MATTY GARCES: 1970 Sex: M Age: Race: White Pt. [...] documentation Electronically signed by:Justus Murphy. Transcribed by: [email or web address], User Resident: Electronically Signed by: JUSTUS MURPHY @ 01/30/2019 04:18 PMNormalThe [facility] CenterComment on above:Order Comment: C6-7 ACDFPOC GLUCOSE LABon 05-83-5615Rebnpme [Mass/Vol]106 mg/oCReso16-394Chf [facility] CenterComment on above:Performed By: #### 90523 #### [address] [place] [address], [facility]*MRSA/MSSA DNA NASALon 01-23-2019*MRSA/MSSA DNA NASAL Clinical Report: (D) Specimen: NASAL SWAB Collected: 01/23/2019 15:02 Status: Final Last Updated: 01/23/2019 20:14 MSSA DNA (Final) Methicillin Susceptible Staphylococcus aureus DNA Detected MRSA DNA (Final) No Methicillin Resistant Staphylococcus aureus DNA DetectedMiddletown HospitalComment on above:Performed By: #### 42693 #### [facility] [address] [place] [address], [facility] HOSPITALAPTKingman Regional Medical Center 18-88-7526vWML Coag (Bld) [Time]35.4 sHigh25.0-35.0 The [facility] CenterComment on above:Result Comment: ALL RESULTS MUST BE INTERPRETED WITH RESPECT TO BLOOD DRAWING ARTIFACT OR DILUTION ERROR OF ANTICOAGULANT AT THE TIME OF SAMPLING. THE APTT SHOULD NOT BE USED TO MONITOR UNFRACTIONATED HEPARIN THERAPY, THIS LABORATORY NO LONGER HAS AN ESTABLISHED THERAPEUTIC RANGE BASED ON THE APTT. IT IS RECOMMENDED THAT THE UFH - HEPARIN ASSAY (ANTI-XA ACTIVITY) BE USED FOR THIS PURPOSE.Performed By: #### 70088, 16843 #### [facility] [address] [place] [address], USABASIC METABOLIC PANELon 15-42-4843Zhitmyx [Mass/Vol]9.5 mg/dLNormal8.6-10.3The [facility] CenterComment on above: Performed By: #### 60048, 65851 #### [facility] [address] [place] [address], USAChloride [Moles/Vol]101 mmol/QLgrxjq21-231Yyr [facility] CenterComment on above:Performed By: #### 03385, 86649 #### [facility] [address] [place] [address], USACO2 [Moles/Vol]29 mmol/FThncra37-56Quf [facility] CenterComment on above:Performed By: #### 95505, 97493 #### [facility] [address] [place] [address], USACreatinine [Mass/Vol]1.08 mg/dLNormal0.70-1.30The [facility] CenterComment on above:Performed By: #### 23596, 28316 #### [facility] [address] [place] [address], USAGFR/1.73 sq M predicted among blacks MDRD (S/P/Bld) [Vol rate/Area]mL/min/{1.73_m2}Normal>60The [facility] Comment on above:Performed By: #### 84285, 96172 #### [facility] [address] [place] [address], USAGFR/1.73 sq M predicted among non-blacks MDRD (S/P/Bld) [Vol rate/Area]mL/min/{1.73_m2}Normal>60The [facility] Comment on above:Performed By: #### 44558, 68048 #### [facility] [address] [place] [address], USAGlucose [Mass/Vol]87 mg/hWQpzydk71-064Ydt [facility] CenterComment on above:Performed By: #### 38738, 39590 #### [facility] [address] [place] [address], USAPotassium [Moles/Vol]4.0 mmol/LNormal3.5-5.1The [facility] CenterComment on above:Performed By: #### 48273, 73045 #### [facility] [address] [place] [address], USASodium [Moles/Vol]137 mmol/ILydhra526-502Xda [facility] CenterComment on above:Performed By: #### 36773, 20350 #### [facility] [address] [place] [address], USAUrea nitrogen [Mass/Vol]12 mg/dLNormal7-25The [facility] CenterComment on above:Performed By: #### 19769, 14870 #### [facility] [address] [place] [address], USACBC W/DIFFon 82-96-4700YKI BASOPHILS0.1 10*3/uLNormal 0.0-0.2The [facility] CenterComment on above:Performed By: #### 67360, 59069 #### [facility] [address] [place] [address], USAABS IMM GRANS0.0 10*3/uLNormal0.0-0.2The [facility] CenterComment on above:Performed By: #### 11200, 49029 #### [facility] [address] [place] [address], USAABS NEUTROPHILS5.3 10*3/uLNormal1.6-7.6The [facility] CenterComment on above:Performed By: #### 63807, 09384 #### [facility] [address] [place] [address], USABasophils/100 WBC (Bld)0.9 %Normal0.0-1.0The [facility] CenterComment on above:Performed By: #### 09500, 53612 #### [facility] [address] [place] [address], USAEosinophils (Bld) [#/Vol]0.2 10*3/uLNormal0.0-0.5The [facility] CenterComment on above:Performed By: #### 16801, 04865 #### [facility] [address] [place] [address], USAEosinophils/100 WBC (Bld)2.3 %Normal0.0-6.0The [facility] CenterComment on above:Performed By: #### 72156, 86681 #### [facility] [address] [place] [address], USAErythrocyte distribution width (RBC) [Ratio]13.8 %Normal 11.5-15.0The [facility] CenterComment on above:Performed By: #### 81637, 90452 #### [facility] [address] [place] [address], USAHematocrit (Bld) [Volume fraction]49.6 %Xconvd17.0-50.0The [facility] CenterComment on above:Performed By: #### 77541, 99459 #### [facility] [address] [place] [address], USAHemoglobin (Bld) [Mass/Vol]16.4 g/gRYtgnnk84.0-17.0The [facility] CenterComment on above:Performed By: #### 01670, 36094 #### [facility] [address] [place] [address], USAIMMATURE GRANS0.5 %Normal0.0-1.0The [facility] CenterComment on above:Performed By: #### 37588, 81308 #### [facility] [address] [place] [address], USALymphocytes (Bld) [#/Vol]1.2 10*3/uLNormal1.2-4.0The [facility] CenterComment on above:Performed By: #### 90504, 84291 #### [facility] [address] [place] [address], USALymphocytes/100 WBC (Bld)16.6 %Low20.0-45.0The [facility] CenterComment on above:Performed By: #### 32559, 26935 #### [facility] [address] [address], USAMCH (RBC) [Entitic mass]27.8 qlYthtyx42.0-33.0The [facility] CenterComment on above:Performed By: #### 07141, 91320 #### [facility] [address] [place] [address], USAMCHC (RBC) [Mass/Vol]33.1 g/xOOrrbpu57.0-35.0The [facility] CenterComment on above:Performed By: #### 45248, 02465 #### [facility] [address] [place] [address], USAMCV (RBC) [Entitic vol]84.2 yICmwhwn85.0-98.0The [facility] CenterComment on above:Performed By: #### 83223, 65877 #### [facility] [address] [place] [address], USAMonocytes (Bld) [#/Vol]0.7 10*3/uLNormal0.1-1.0The [facility] CenterComment on above:Performed By: #### 82650, 91673 #### [facility] [address] [place] [address], USAMONOS9.4 %Normal5.0-12.0The [facility] CenterComment on above:Performed By: #### 83543, 95385 #### [facility] [address] [place] [address], USANeutrophils/100 WBC (Bld)70.3 %Bqflbb50.0-72.0The [facility] CenterComment on above:Performed By: #### 31249, 50031 #### [facility] [address] [place] [address], USANucleated RBC/100 WBC (Bld) [Ratio]0 %Normal0-0The [facility] CenterComment on above:Performed By: #### 76724, 02182 #### [facility] [address] [place] [address], USAPLAT ISM262 10*3/kJBusmfq714-097Ptl [facility] CenterComment on above:Performed By: #### 07264, 86121 #### [facility] [address] [place] [address], USARBC (Bld) [#/Vol]5.89 10*6/uLHigh4.20-5.70The [facility] CenterComment on above:Performed By: #### 84076, 18027 #### [facility] [address] [place] [address], USAWBC (Bld) [#/Vol]7.48 10*3/uLNormal4.00-10.60The [facility] CenterComment on above:Performed By: #### 65645, 49943 #### [facility] [address] [place] [address], USAPROTHROMBIN TIMEon 26-34-6552ISE Coag (PPP) [Relative time] 1.12 {INR}Normal0.91-1.16The [facility] CenterComment on above:Result Comment: ACCCP RECOMMENDED INR FOR WARFARIN THERAPY ------- CONDITION INR PROPHYLAXIS OF VENOUS THROMBOSIS 2-3 (HIGH-RISK SURGERY) TREATMENT OF VENOUS THROMBOSIS 2-3 TREATMENT OF PULMONARY EMBOLISM 2-3 PREVENTION OF SYSTEMIC EMBOLISM: 2-3 ACUTE MYOCARDIAL INFARCTION TISSUE HEART VALVES VALVULAR HEART DISEASE ATRIAL FIBRILLATION RECURRENT SYSTEMIC EMBOLISM MECHANICAL HEART VALVE 2.5-3.5 FROM: ORAL ANTICOAGULANTS. MECHANISM OF ACTION, CLINICAL EFFECTIVENESS, AND OPTIMAL THERAPEUTIC RANGE. CHEST 1995;108:231S-246S.Performed By: #### 94663, 56309 #### [facility] [address] [place] [address], USAPT Coag (PPP) [Time]14.4 bUknurs67.3-14.8The [facility] CenterComment on above:Result Comment: ALL RESULTS MUST BE INTERPRETED WITH RESPECT TO BLOOD DRAWING ARTIFACT OR DILUTION ERROR OF ANTICOAGULANT AT THE TIME OF SAMPLING.Performed By: #### 20630, 74167 #### [address] [place] [address], [facility] HOSPITALTYPE AND SCREENon 88-48-0511FKC INTERPRETATIONANoRegency Hospital ToledoComment on above:Performed By: #### 17374, 27881 #### [facility] [address] [place] [address], USARH INTERPRETATIONPositiveNoRegency Hospital ToledoComment on above:Performed By: #### 25092, 53081 #### [address] [place] [address], USACT 3D CERVICAL SPINE WO CONTRASTon 26-07-7287KR 3D CERVICAL SPINE WO CONTRASTUnKettering Health Preble Department of Radiology [address] [place] [phone] Patient Name: MATTY GARCES : 1970 Sex: M Age: Race: White Pt. Location: Patient Status: D Ordered Date: 01/10/2019 2:15:00 PM Completed Date: 01/12/2019 10:32 AM Requesting Provider: LUCIANO DAVIS Attending Provider: LUCIANO DAVIS Report Copy To: VENUS JAEGER Signs & Symptoms: M48.02 Spinal stenosis, cervical region I10 History: [place] para auth # [id number] 01/10/19-02/09/19 [id number] *er Comments: Exam: CT 3D CERVICAL SPINE [...] incomplete Electronically signed by:Ten Uriarte. Transcribed by: [email or web address], User Resident: Electronically Signed by: TEN URIARTE @ 01/13/2019 09:18 AMNormalThe [facility] CenterCERVICAL SPINE 2 OR 3 [facility] 01-05-2019 CERVICAL SPINE 2 OR 3 [facility] of [facility] [address] [place], [place] [phone] Patient Name: MATTY GARCES : 1970 Sex: [...] findings. Electronically signed by:Ten Uriarte. Transcribed by: [email or web address], User Resident: SHELLY DELA CRUZ Electronically Signed by: TEN URIARTE @ 01/05/2019 12:37 PM I personally read this/these film(s) with this [facility] HospitalComment on above:Order Comment: , , , Ordering Provider - LUCIANO DAVIS MD , CERVICAL SPINE 2 OR 3 [facility] [id number] SPINE 2 OR 3 [facility] of [facility] [address] [place] [phone] Patient Name: MATTY GARCES : 1970 Sex: M Age: Race: White Pt. Location: Patient Status: O Ordered Date: 08/30/2018 9:35:00 AM Completed Date: 08/30/2018 09:43 AM Requesting Provider: LUCIANO DAVIS Attending Provider: LUCIANO DAVIS Report Copy To: VENUS JAEGER Signs & Symptoms: M50.90 Cervical disc disorder, unsp, unspecified cervical region I10 History: [place] Comments: , POST OP XRAY AP/LAT ONLY , POST OP XRAY AP/LAT ONLY , , , Ordering Provider - CARLOSEDINE MEDHKOUR MD , Exam: CERVICAL SPINE 2 OR [...] findings. Electronically signed by:Bella King. Transcribed by: [email or web address], User Resident: RYAN ANDERSON Electronically Signed by: BELLA KING @ 08/30/2018 05:45 PM I personally read this/these film(s) with this [facility] HospitalComment on above:Order Comment: , POST OP XRAY AP/LAT ONLY , POST OP XRAY AP/LAT ONLY , , , Ordering Provider - LUCIANO DAVIS MD , Operative Reporton [id number] ReportMR#: [id number] I [facility] Pt. Name: Matty Garces Room #: 5CD [id number] Discharge Date: Birthdate: 1970 OPERATIVE REPORT DATE OF SURGERY: 08/17/2018 SURGEON: Luciano Davis M.D. PREOPERATIVE DIAGNOSIS: Herniated cervical disk at C6-7. POSTOPERATIVE DIAGNOSIS: Herniated cervical disk at C6-7. SEAPORT PLANNING MANAGER: ADENIKE Larios. ANESTHESIA: Endotracheal, Braida. PROCEDURE: Anterior [...] Davis M.D. Date Trans: 08/17/2018 11:25 P/sasha [id number]_JN:[id number] cc: Venus Jaeger M.D. [address], [place] [address]AsaxggTcxMiddletown HospitalCERVICAL SPINE 2 OR 3 [facility] [id number] SPINE 2 OR 3 [facility] of Rad[facility] [address] [place] [address] Patient Name: MATTY GARCES : [...] findings. Electronically signed by:Bernice Hoyt. Transcribed by: [id number], User Resident: KENNETH DUVAL Electronically Signed by: BERNICE HOYT @ 08/18/2018 01:06 PM I personally read this/these film(s) with this [facility] Flower HospitalComment on above:Order Comment: C6-7 ACDF with POC GLUCOSE LABon 37-29-0540Urtyqbm [Mass/Vol]113 mg/kGYzak55-723Gkt [facility] CenterComment on above:Performed By: #### [id number] #### [facility] [address] [place] [address], USARBC'S 2 UNITSon 58-92-1242RBOUVVGMGO INTERP 1CKettering Health TroyComment on above:Performed By: #### [id number] #### [facility] [address] [place] [address], USACROSSMATCH INTERP 2CKettering Health TroyComment on above:Performed By: #### [id number] #### [facility] [address] [place] [address], USAPRODUCT CODE [id number] HospitalComment on above:Performed By: #### [id number] #### [facility] [address] [place] [address], USAPRODUCT CODE [id number] HospitalComment on above:Performed By: #### [id number] #### [facility] [address] [place] [address], USAPRODUCT STATUS 1RGalion HospitalComment on above:Result Comment: Result changed by IF on 08/20/2018 07:48. The previous value was XM.Performed By: #### [id number] #### [facility] [address] [place] [address], USAPRODUCT STATUS 2RGalion HospitalComment on above:Result Comment: Result changed by IF on 08/20/2018 07:48. The previous value was XM.Performed By: #### [id number] #### [facility] [address] [place] [address], USAUNIT ABO 1AMiddletown Hospital Comment on above:Performed By: #### [id number] #### [facility] [address] [place] [address], USAUNIT ABO 2AMiddletown Hospital Comment on above:Performed By: #### 57605 #### [facility] [address] [place] [address], USAUNIT ID [id number] [facility] CenterComment on above:Performed By: #### [id number] #### [facility] [address] [place] [address], USAUNIT ID [id number] HospitalComment on above:Performed By: #### [id number] #### [facility] [address] [place] [address], USAUNIT RH 1PosiUniversity Hospitals Beachwood Medical CenterComment on above:Performed By: #### [id number] #### [facility] [address] [address], USAUNIT RH 2PosiUniversity Hospitals Beachwood Medical CenterComment on above:Performed By: #### [id number] #### [facility] [address] [facility]*MRSA/MSSA CULTUREon 08-02-2018*MRSA/MSSA CULTUREClinical Report: (D) Specimen: NASAL SWAB Collected: 08/02/2018 12:37 Status: Final Last Updated: 08/03/2018 14:26 ISO (Final) No Methicillin Resistant Staphylococcus aureus Isolated (MRSA) ISO (Final) Methicillin Sensitive Staphylococcus aureus (MSSA) IsolatedMiddletown HospitalComment on above:Performed By: #### [id number] #### [facility] [address] [place] [address], CIBOLA GENERAL HOSPITALAPTTon 63-25-6960kCJQ Coag (Bld) [Time]31.2 sNormal 25.0-35.0The [facility] Medical CenterComment on above:Result Comment: ALL RESULTS MUST BE INTERPRETED WITH RESPECT TO BLOOD DRAWING ARTIFACT OR DILUTION ERROR OF ANTICOAGULANT AT THE TIME OF SAMPLING. THE APTT SHOULD NOT BE USED TO MONITOR UNFRACTIONATED HEPARIN THERAPY, THIS LABORATORY NO LONGER HAS AN ESTABLISHED THERAPEUTIC RANGE BASED ON THE APTT. IT IS RECOMMENDED THAT THE UFH - HEPARIN ASSAY (ANTI-XA ACTIVITY) BE USED FOR THIS PURPOSE.Performed By: #### [id number], [id number] #### [facility] [address] [place] [address], USABASIC METABOLIC PANELon 41-57-7851Jjjsaab [Mass/Vol]9.4 mg/dLNormal8.6-10.3The [facility] CenterComment on above: Performed By: #### [id number] #### [facility] [address] [place] [address], USAChloride [Moles/Vol]103 mmol/ONuozjw96-620Qyn [facility] CenterComment on above:Performed By: #### 53603 #### [facility] [address] [place] [address], USACO2 [Moles/Vol]29 mmol/SDsmxav53-36Qks [facility] CenterComment on above:Performed By: #### 22421 #### [facility] [address] [place] [address], USACreatinine [Mass/Vol]1.06 mg/dLNormal0.70-1.30The [facility] CenterComment on above:Performed By: #### 23384 #### [facility] [address] [place] [address], USAGFR/1.73 sq M predicted among blacks MDRD (S/P/Bld) [Vol rate/Area]mL/min/{1.73_m2}Normal>60The [facility] Comment on above:Performed By: #### 30018 #### [facility] [address] [place] [address], USAGFR/1.73 sq M predicted among non-blacks MDRD (S/P/Bld) [Vol rate/Area]mL/min/{1.73_m2}Normal>60The [facility] Comment on above:Performed By: #### 84055 #### [facility] [address] [place] [address], C[facility]OL[facility] GENERAL HOSPITALGlucose [Mass/Vol]84 mg/qAXdupws84-793Uii [facility] CenterComment on above:Performed By: #### 43847 #### [facility] [address] [place] [address], USAPotassium [Moles/Vol]4.0 mmol/LNormal3.5-5.1The [facility] CenterComment on above:Performed By: #### 46442 #### [facility] [address] [place] [address], USASodium [Moles/Vol]140 mmol/VKdtdzw473-986Khl [facility] CenterComment on above:Performed By: #### 00426 #### [facility] [address] [place] [address], USAUrea nitrogen [Mass/Vol]20 mg/dLNormal7-25The [facility] CenterComment on above:Performed By: #### 89589 #### [facility] [address] [place] [address], [facility]AL HOSPITALCBC W/DIFFon 62-73-4258XAP BASOPHILS0.1 10*3/uLNormal 0.0-0.2The [facility] CenterComment on above:Performed By: #### 86850 #### [facility] [address] [place] [address], USAABS IMM GRANS0.1 10*3/uLNormal0.0-0.2The [facility] CenterComment on above:Performed By: #### 08347 #### [facility] [address] [place] [address], USAABS NEUTROPHILS4.2 10*3/uLNormal1.6-7.6The [facility] CenterComment on above:Performed By: #### 63657 #### [facility] [address] [place] [address], USABasophils/100 WBC (Bld)1.3 %High0.0-1.0The [facility] Medical CenterComment on above:Performed By: #### 74384 #### [facility] [address] [place] [address], CIBOLA GENERAL HOSPITALEosinophils (Bld) [#/Vol]0.1 10*3/uLNormal0.0-0.5The [facility] CenterComment on above:Performed By: #### 77168 #### [facility] [address] [place] [address], USAEosinophils/100 WBC (Bld)2.0 %Normal0.0-6.0The [facility] CenterComment on above:Performed By: #### 60215 #### [facility] [address] [place] [address], USAErythrocyte distribution width (RBC) [Ratio]13.6 %Normal 11.5-15.0The [facility] CenterComment on above:Performed By: #### 58094 #### [facility] [address] [place] [address], USAHematocrit (Bld) [Volume fraction]44.3 %Nrcjnk28.0-50.0The [facility] CenterComment on above:Performed By: #### 87865 #### [facility] [address] [place] [address], USAHemoglobin (Bld) [Mass/Vol]15.1 g/lOSbjcrs20.0-17.0The [facility] CenterComment on above:Performed By: #### 50102 #### [facility] [address] [place] [address], USAIMMATURE GRANS1.1 %High0.0-1.0The [facility] CenterComment on above:Performed By: #### 59991 #### [facility] [address] [address], CIBOLA GENERAL HOSPITALLymphocytes (Bld) [#/Vol]1.2 10*3/uLNormal1.2-4.0The [facility] CenterComment on above:Performed By: #### 75159 #### [facility] [address] [place] [address], CIBOLA GENERAL HOSPITALLymphocytes/100 WBC (Bld)18.3 %Low20.0-45.0The [facility] CenterComment on above:Performed By: #### 52058 #### [facility] [address] [place] [address], CIBOLA GENERAL HOSPITALMCH (RBC) [Entitic mass]29.0 icKmtadl63.0-33.0The [facility] CenterComment on above:Performed By: #### 15797 #### [facility] [address] [place] [address], CIBOLA GENERAL HOSPITALMCHC (RBC) [Mass/Vol]34.1 g/uNBeohgu85.0-35.0The [facility] CenterComment on above:Performed By: #### 57990 #### [facility] [address] [place] [address], C[facility] GENERAL HOSPITALMCV (RBC) [Entitic vol]85.0 eVFcrjzx76.0-98.0The [facility] CenterComment on above:Performed By: #### 97186 #### [facility] [address] [place] [address], USAMonocytes (Bld) [#/Vol]0.7 10*3/uLNormal0.1-1.0The [facility] CenterComment on above:Performed By: #### 13720 #### [facility] [address] [place] [address], YLAIHHQH87.1 %Normal5.0-12.0The [facility] CenterComment on above:Performed By: #### 52586 #### [facility] [address] [address], USANeutrophils/100 WBC (Bld)66.2 %Bpiruf53.0-72.0The [facility] CenterComment on above:Performed By: #### 50112 #### [facility] [address] [address], C[facility]OLA GENERAL HOSPITALNucleated RBC/100 WBC (Bld) [Ratio]0 %Normal0-0The [facility] CenterComment on above:Performed By: #### 43020 #### [facility] [address] [address], USAPLAT RKH697 10*3/zBVhvzal496-918Ibl [facility] CenterComment on above:Performed By: #### 99838 #### [facility] [address] [place] [address], USARBC (Bld) [#/Vol]5.21 10*6/uLNormal4.20-5.70The [facility] CenterComment on above:Performed By: #### 34714 #### [facility] [address] [place] [address], USAWBC (Bld) [#/Vol]6.39 10*3/uLNormal4.00-10.60The [facility] CenterComment on above:Performed By: #### 84839 #### [facility] [address] [place] [address], [facility]AL HOSPITALCERVICAL SPINE 4 OR 5 VIEWSon 69-33-9645AHSKYYLU SPINE 4 OR 5 VIEWSUnKettering Health Preble Department of Radiology [address] [place], [place] [id number] Patient Name: MATTY GARCES : 1970 Sex: [...] in alignment or hardware complication. Approved by:Florentino Duavl on 08/02/2018 5:59 PM EST. I, Bella King, have reviewed the images and report and concur with these findings. Electronically signed by:Bella King. Transcribed by: [email or web address], User Resident: KENNETH DUVAL Electronically Signed by: BELLA KING @ 08/03/2018 11:58 AM I personally read this/these film(s) with this [facility] HospitalComment on above:Order Comment: , PREOP XRAY AP/LAT \EANDE\ FLEX/EX , PREOP XRAY AP/LAT \EANDE\ FLEX/EX , , , Ordering Provider - LUCIANO DAVIS MD , PROTHROMBIN TIMEon 58-58-1851IER Coag (PPP) [Relative time]1.15 {INR}Normal0.91-1.16The [facility] Comment on above:Result Comment: ACCCP RECOMMENDED INR FOR WARFARIN THERAPY ------- CONDITION INR PROPHYLAXIS OF VENOUS THROMBOSIS 2-3 (HIGH-RISK SURGERY) TREATMENT OF VENOUS THROMBOSIS 2-3 TREATMENT OF PULMONARY EMBOLISM 2-3 PREVENTION OF SYSTEMIC EMBOLISM: 2-3 ACUTE MYOCARDIAL INFARCTION TISSUE HEART VALVES VALVULAR HEART DISEASE ATRIAL FIBRILLATION RECURRENT SYSTEMIC EMBOLISM MECHANICAL HEART VALVE 2.5-3.5 FROM: ORAL ANTICOAGULANTS. MECHANISM OF ACTION, CLINICAL EFFECTIVENESS, AND OPTIMAL THERAPEUTIC RANGE. CHEST 1995;108:231S-246S.Performed By: #### 82027, 47855 #### [facility] [address] [place] [address], USAPT Coag (PPP) [Time]14.7 kGxghqi65.3-14.8The [facility] Medical CenterComment on above:Result Comment: ALL RESULTS MUST BE INTERPRETED WITH RESPECT TO BLOOD DRAWING ARTIFACT OR DILUTION ERROR OF ANTICOAGULANT AT THE TIME OF SAMPLING.Performed By: #### 22506, 59181 #### [facility] [address] [place] [address], USATYPE AND SCREENon 13-77-7729OIU INTERPRETATIONANoRegency Hospital ToledoComment on above:Order Comment: 2 units 2 units 2 units 2 units 2 unitsPerformed By: #### 11006 #### [facility] [address] [place] [address], USARH INTERPRETATIONPositiveNoRegency Hospital ToledoComment on above:Order Comment: 2 units 2 units 2 units 2 units 2 unitsPerformed By: #### 00222 #### [facility] [address] [place] [address], USAURINALYSIS REFLEXon 66-79-2572Okbxezjkqr (U)CLEARNormal CLEARThe [facility] CenterComment on above:Performed By: #### 26245 #### [facility] [address] [place] [address], USABilirubin [Mass/Vol]NegativeNormalNEGATIVEThe [facility] CenterComment on above:Performed By: #### 64265 #### [facility] [address] [place] [address], USABLOODNegativeNormalNEGATIVEThe [facility] CenterComment on above:Performed By: #### 74665 #### [facility] [address] [place] [address], USAColor (U)YELLOWNormalYELLOWThe [facility] CenterComment on above:Performed By: #### 52269 #### [facility] [address] [place] [address], USAGlucose [Mass/Vol]150 mg/dLAbnormalNEGATIVEThe [facility] CenterComment on above:Performed By: #### 46091 #### [facility] [address] [place] [address], USAKETONENegativeNormalNEGATIVEThe [facility] CenterComment on above:Performed By: #### 49280 #### [facility] [address] [place] [address], USALEUK ESTERNegativeNormalNEGATIVEThe [facility] CenterComment on above:Performed By: #### 99644 #### [facility] [address] [place] [address], USAMICRO NOT DONEnegative chemical reactions unless requested in original orderNormalThe [facility] CenterComment on above: Performed By: #### 18948 #### [facility] [address] [place] [address], USANitrite Ql (U)NegativeNormalNEGATIVEThe [facility] CenterComment on above:Performed By: #### 13154 #### [facility] [address] [place] [address], USApH (Bld)5.8Flnbqc3.0-8.0The [facility] CenterComment on above:Performed By: #### 61433 #### [facility] [address] [place] [address], USAProtein (U) [Mass/Vol]NegativeNormalNEGATIVEThe [facility] CenterComment on above:Performed By: #### 97238 #### [facility] [address] [place] [address], USASPEC GRAV1.476Islh9.015-1.020The [facility] CenterComment on above:Performed By: #### 09598 #### [place] [address] Vital Signs Date TimeVital SignValuePerforming GjjmhmlknAketriuo57-11-4383 11:03-0400Body himvbs510 cmRubén Geiger MD Work Phone: 1(171)[address] [place], [place] 0835007-23-2025 11:03-0400Body mass index (BMI) [Ratio]34.02 kg/e4LkiileeRubén Geiger MD Work Phone: 1(286)[address] [place], [place] 0835007-23-2025 11:03-0400Body .2 kgRubén Geiger MD Work Phone: 1(349)[address] [place], [place] 0835007-23-2025 11:03-0400Diastolic blood fhhawhix19 mm[Hg]Rubén Geiger MD Work Phone: 1(468)[address] [place], [place] 0835007-23-2025 11:03-0400Heart fvug109 /min Rubén Geiger MD Work Phone: 1(843)[address] [place], [place] 0835007-23-2025 11:03-0400Systolic blood iyhbuvni785 mm[Hg]Rubén Geiger MD Work Phone: 1(722)[address] [place], [place] 0835004-23-2025 14:44-0400Body cm Rubén Geiger MD Work Phone: 1(230)[address] [place], [place] 0835004-23-2025 14:44-0400Body mass index (BMI) [Ratio]35.31 kg/k9KfdyfspRubén Geiger MD Work Phone: 1(700)[address] [place], [place] 0835004-23-2025 14:44-0400Body siprwy452.74 kgRubén eGiger MD Work Phone: 1(090)[address] [place], [place] 0835010-21-2024 14:45-0400Body hoeeec485 cm Rubén Geiger MD Work Phone: 1(328)[address] [place], [place] 0835010-21-2024 14:45-0400Body mass index (BMI) [Ratio]37.62 kg/e7FhqnsmoRubén Geiger MD Work Phone: [facility] HospitalWwrrxawkpt00-38-8089 14:45-0400Body vbyokf835.9 kgRubén Geiger MD Work Phone: [facility] HospitalXfdxlnynde16-95-0641 10:30-0400Blood Pressure LocationKathy Lue [facility] 06-15-2022 10:30-0400Diastolic blood fhlzthnu046 mm[Hg] Viola Lue [facility] 06-15-2022 10:30-0400Heart rate74 /minKathy Lue [facility] 06-15-2022 10:30-0400Respiratory rate16 /minKathy Lue [facility] 06-15-2022 10:30-0400Systolic blood kcjuzxav330 mm[Hg] Viola Lue [facility] Encounters Encounter DateEncounter TypeCare ProviderFacilityStart: 06-20-2025 End: 45-89-2119dynicxeyeqHaxiipy M Hoy MD Work Phone: [facility] Work Phone: Start: 06-20-2025 End: 04-86-8024Ffezasog ReferredRaritesh Ernandez MD-LAB [facility] Start: 05-29-2025 End: 53-94-8944Hqpmkgg encounter procedureJuapoorva Coats DO-[facility] Work Phone: Start: 05-29-2025 End: 67-25-3148zpwhzegdgpJdugpnr M Hoy MD Work Phone: [facility] Work Phone: Start: 05-15-2025 End: 70-72-6282NgcxkcFfuvduypfkLexi Miguel NP Work Phone: noms [facility] NeurologyComment on above:Excessive daytime sleepiness; Primary insomniaExcessive daytime sleepiness; Obstructive sleep apneaStart: 05-07-2025 End: 70-43-1231yiobdqlseiJvshpss M Hoy MD Work Phone: [facility] Work Phone: Start: 05-07-2025 End: 53-31-4100Ycqruht encounter procedureJameel Coats DO-[facility] Work Phone: Start: 04-04-2025 End: 49-04-5746Mxksopcaesar Geiger MD Work Phone: noms NEUROLOGYStart: 04-04-2025 End: 14-77-9601Ynzoipcaesar Geiger MD Work Phone: noms NEUROLOGYStart: 04-04-2025 End: 28-45-3288Ztbiou outpatient visit 25 minutesRubén Geiger MD Work Phone: noms SWS NEURComment on above:Narcolepsy cataplexy syndrome (HCC) (Primary Dx); Excessive daytime sleepiness; Cervical disc disorder; Intractable chronic migraine with aura with status migrainosusStart: 04-04-2025 End: 46-56-9574pnyrfzdzvpNCQLKPJ W BAUERNot AvailableStart: 03-05-2025 End: 92-14-2706Rtuizwnro Result EncounterJess HOYOS Work Phone: noms External Department UnsolicitedStart: 03-05-2025 End: 83-48-4151Dobwojdcx Result EncounterJess HOYOS Work Phone: noms External Department UnsolicitedStart: 01-03-2025 End: 94-80-0740Zzjsqj outpatient visit 25 minutesRubén Geiger MD Work Phone: noms SWS NEURComment on above:Primary narcolepsy with cataplexy (CMS/HCC) (Primary Dx); Excessive daytime sleepiness; Obstructive sleep apneaStart: 01-03-2025 End: 72-89-8459hrofmwxluuCTGKJNP W BAUERNot AvailableStart: 01-03-2025 End: 88-54-7820Mqpemk Anastasiya Geiger MD Work Phone: noms NEUROLOGYStart: 01-03-2025 End: 63-07-9083Bgneep Anastasiya Geiger MD Work Phone: noms NEUROLOGYStart: 12-11-2024 End: 61-28-0698jzpwkginlqTHUAFPD W BAUERNot AvailableStart: 12-11-2024 End: 99-76-5739Bucfiw outpatient visit 25 minutesRubén Geiger MD Work Phone: noms SWS NEURComment on above:Cubital tunnel syndrome on right (Primary Dx); Cervical paraspinal muscle spasm; Degeneration of intervertebral disc of lumbosacral region with discogenic back pain and lower extremity pain; Narcolepsy cataplexy syndrome (CMS/HCC)Start: 11-14-2024 End: 16-71-9420Lriajzgoc encounterLiz Castanon. EEG. T. Other Phone: noms SWS NEURStart: 10-12-2024 End: 14-07-2793Zgrsddyxn encounterHeather Miguel NP Work Phone: [facility]oms [facility] NEURO 210Start: 95-73-2921Ocdmhltzfj and management of inpatientCHRISTOPHER [facility] Start: 10-08-2024 End: 97-52-8970Hngkibndxy and management of inpatientJACK [facility] Hospitaltart: 10-02-2024 End: 27-32-2744GvcburCnijprn Peterson LPNNOMS [facility] NEURO 210Comment on above: Excessive daytime sleepiness; Obstructive sleep apneaStart: 69-75-5082Jfvpainugb and management of inpatient MARIANNA SUAREZThe Jewish Hospitaltart: 75-92-8573Zyzbprrvld and management of inpatientBRANTLEY HINDERSUniversMercy Health [facility] Start: 73-86-5958Xuqwhxmiyf and management of inpatientJAMIE [facility] Systemtart: 02-86-3016Xadhdnlfrm and management of inpatient SHIN [facility] Systemtart: 04-41-1354Jzqrcpvsug and management of inpatientABDUL MUSTAPHAUniFlower Hospitaltart: 39-85-2727Scofdpopmw and management of inpatientRACHEL [facility] Centertart: 23-73-4516Dwhutpypi department patient visitJAMIE [facility] Systemtart: 42-60-3291Erkunpftt department patient visitJAMIE [facility] Systemtart: 09-23-2024 Emergency department patient visitRACHEL [facility] Centertart: 09-23-2024 End: 01-21-3101Kilhnodzzc and management of inpatientJEFFERY [facility] Centertart: 09-21-2024 End: 41-59-3255jkxqalpgolJrldv D [facility] Work Phone: Start: 09-21-2024 End: 84-81-9637Zisdvsrm ReferredPenn State Health [facility] DPM Work Phone: [facility]-LAB Path Spec [facility] HospStart: 07-04-2024 End: 04-32-5708Ggsfbdehe encounterRubén Geiger MD Work Phone: [facility] NEURO 210Start: 07-03-2024 End: 52-25-0849Fbkesb outpatient visit 25 minutesBremuriel Geiger MD Work Phone: noms SWS NEURComment on above:Excessive daytime sleepiness (Primary Dx); Obstructive sleep apnea; Primary insomnia; Cubital tunnel syndrome on rightStart: 07-03-2024 End: 46-87-7714rrvamxcbfoXFVKAOY W BAUERNot AvailableStart: 07-03-2024 End: 94-58-4629Myiigz Anastasiya Geiger MD Work Phone: noms BM NEUROLOGYStart: 07-03-2024 End: 17-79-6643Rnhbao Anastasiya Geiger MD Work Phone: noms BM NEUROLOGYStart: 05-10-2024 End: 84-55-2035ZhhlxqCctlzsm W Bauer MD Work Phone: noms SWS NEURComment on above:Primary insomniaStart: 01-03-2024 End: 71-05-7207ydkfpafqlmERH Trey Vallejo Work Phone: [facility] Work Phone: Start: 01-03-2024 End: 12-64-0341Nkocdimm ReferredDP Trey [facility] Centerkacie Work Phone: [facility]-LAB Path Spec To[facility] HospStart: 11-29-2023 End: 72-12-1695rixwnoajfjLfmbbpv Vytautas Giedraitis MDFacility:PM [facility] Start: 10-18-2023 End: 45-58-9249jihwymlmayPfuddkv Vytautas Giedraitis MDFacility:[facility] Start: 08-30-2023 End: 08-27-7840szhcybvgkyCtobhug Vytautas Giedraitis MDFacility:PM [place] Start: 07-12-2023 End: 95-21-4213uhqyuaahrfMijlfgp Vytautas Giedraitis MDFacility:PM [place] Start: 06-14-2023 End: 13-50-0932qeirtimnslNpsjtcr Vytautas Giedraitis MDFacility:PM [place] Start: 12-06-2022 End: 11-69-7206xmshqewzgkQS VENUS HOY .Facility:K8Vphea: 41-33-9460Xfjfokyxv for general adult medical examination without abnormal findingsDR VENUS HOY . [facility]tart: 12-01-2022 End: 59-38-4046jgsgucmhhkYM VENUS HOY .Facility:K6Ptmsa: 12-01-2022 End: 84-08-2187Ephofpupw for general adult medical examination without abnormal findingsDR VENUS HOY .Facility:Y6Oagpk: 07-10-2022 End: 25-91-8596camtdjsfggTF VENUS HOY .Facility:W9Afbvl: 03-26-2022 End: 08-29-9579dbsipvdgkgZM VENUS HOY .Facility:D3Qzsyd: 03-13-2022 End: 23-95-9883sdhyqhdrduZB VENUS HOY .Facility:P3Euzoq: 02-25-2022 End: 19-66-5575Jmpahqv encounter procedureViola Grullon [facility] start: 01-04-2022 End: 40-01-1256vyblvbjwjlKN VENUS HOY .Facility:I4Wqkef: 01-30-2019 End: 17-00-6855Oywdbokbgh and management of inpatientPROVIDER UNKNOWN [facility] End: 81-01-0982Jhirbzz encounter procedurePROVIDER UNKNOWNFacility:[facility] Procedures DateProcedureProcedure DetailPerforming ClinicianStart: 66-78-9321YQ of lower leg without contrastDorobert Jaeger MD Work Phone: Start: 65-13-0282VDG 12-LEADSt. [facility] Garry HOYOS Work Phone: Start: 90-77-0980MDU screeningDR VENUS HOY .Comment on above:Performed By: #### PSASC #### [facility] [address] [place] [address] Dr. Shabnam RaeStart: 79-60-7602GKDWWB CERV JT W INTBD FUS DEV, ANT APPR A COL, OPENAZEDINE MEDHKOURStart: 50-47-9786QRUBUQQ OF INT FIX FROM CERVCAL VERTEBRA, OPEN APPROACHAZEDINE MEDHKOURStart: 77-77-9756Whigsupd screenPROVIDER UNKNOWN Comment on above:Performed By: #### [id number], [id number] #### [facility] [address] [place] [address], USAStart: 46-22-3425XYZTSP SPINE CORD SURGERYANTHONY BRAIDA Start: 42-37-7412NUNWHW SPINE FIXATION DEVICEAZEDINE MEDHKOURStart: 08-17-2018 NECK SPINE FUSE\T\REMOV BEL P7GUBWNSN MEDHKOURStart: 83-68-8395YY BONE ALGRFT STRUCT ADD-ONAZEDINE MEDHKOURStart: 99-99-3111Ljklfiji screenPROVIDER UNKNOWN Comment on above:Order Comment: 2 units 2 units 2 units 2 units 2 unitsPerformed By: #### [id number] #### [facility] [address] [place] [address], USAStart: 02-08-1998H/O: vasectomyHistory of vasectomyRubén Geiger MD Work Phone: ColonoscopyKatfranko Lue Hemorrhoids (disorder)Viola Lue Hernia of abdominal cavity (disorder)Viola Lue TonsillectomyKatfranko Lue Plan of Treatment DateCare ActivityDetailAuthorStart: 06-27-2025 End: 75-84-3698Buxhbos encounter procedureNOMS SWS NEURStart: 05-14-2025 Influenza vaccinationInfluenza Vaccine (#1)[facility] HealthcareStart: 04-04-2025 End: 60-10-4460Sulunho encounter procedureNOMS SWS NEURComment on above:Arrived Start: 01-03-2025 End: 03-54-8804Nzgkjdc encounter procedureNOMS SWS NEURComment on above:Arrived Start: 10-04-2024 End: 56-78-3063Eevoita encounter ubkaotgzj72/22/2025 2:20 PM EST Office Visit [facility] [address] [place] [address] uRbén Geiger MD [address] [place] [address] [id number] [facility] NEURStart: 81-94-0739Nkkrwkwkclp Wound CultureSuperficial Wound CultureDelaware County Hospitaltart: 07-03-2024 End: 53-19-5253Yscyjii encounter procedureNOMS [facility] NEURComment on above:Arrived Start: 52-48-5815Wkbwttqoi vaccinationInfluenza Vaccine (#1)[facility] Start: 85-60-5111Izlqnbtuw for malignant neoplasm of colonNOPA Healthcare Bacteria identified in Unspecified specimen by Aerobe cultureTrinity Health System Twin City Medical CenterCT Lower leg - right W contrast [facility]XR Tibia and Fibula - right 2 ViewsHeritage Hospital Immunizations Immunization DateImmunizationNotesCare YnjonpwiEvtgqkvd97-01-2589fddqnhaiw virus vaccine, unspecified formulationRubén Geiger MD Work Phone: [facility] HospitalTpuuwxsieg86-67-7392vaanzitns virus vaccine, unspecified formulationBremuriel Geiger MD Work Phone: [facility] Payers DatePayer CategoryPayerPolicy [id number]-[id number] [id number] [id number] [id number] 2..840.1.358345.3.579.2.647 [id number] 2.16.840.1.939106.3.579.[id number] 2.840.1.480165.3.579.2.31815-43-3157Qqxfwgg6576154 2.84.1.673941.3.579.2.11721-64-4447Ssniucs6864303 2.840.1.701798.3.579.2.77058-05-5966Aqawkqa0854629 2.0.1.162908.3.579.[id number] 2..1.497917.3.579.2.41376-80-6584Fxagxdm0817116 2..1.026271.3.579.2.[id number] 2..1.310492.3.579.2.51956-89-1275Duhvkye109692032 2..1.425425.3.579.2.39168-19-0207Odfqwzi903463274 2..1.162808.3.579.2.00166-05-7457Dkobrjz646720240 2..1.428307.3.579.2.[id number] 2..1.832707.3.579.2.28761-09-1514Jdhftob74678041 2..1.451951.3.579.2.373120-72-1663Qnqbwrc0317527 2..1.559560.3.579.2.842289-35-2384Ocxdvos9327958 2..1.644569.3.579.2.109033-50-5182Ryxbazp0377976 2.840.1.784697.3.579.2.[id number] [id number] 2.16.840.1.386490.3.579.2.873Sgvywjo79812592 2.16840.1.758473.3.579.2.335Tjxknnj16304778 2.840.1.811536.3.579.2.531 Social History DateTypeDetailFacilityTobacco smoking statusNo Smoking Status EnteredExecutive Urology of [facility] start: 03-27-2024 End: 91-28-6978Mnh Assigned At [facility] HospitalMaleExecutive Urology [facility] DIIME start: 05-15-2018 End: 85-58-9638Bxaioov smoking status NHISEx-smoker (finding)[facility] Hospitaltart: 12-44-0217Ryk Assigned At [facility] Hospitaltart: 33-94-3420Rbhshjf smoking status NHISNever smoked tobacco [facility] HealthcareStart: 94-22-9051Eumtuzc use and exposureSmokeless tobacco non-userNOMS HealthcareStart: 03-27-2024 End: 37-45-6279Bdyiwjafx beverage intakeEx-drinker (finding)[facility] Start: 03-27-2024 End: 58-48-4234Vcnmlmx of Social functionNOMS HealthcareStart: 20-16-7346Xwp assigned at birthNot on fileNOMS HealthcareStart: 96-95-7543VbxWycl (finding) [facility] Functional Status DhkhSipebblzvxVyekxoDtcvscam45-72-7790Dfsqseacrd StatusN/AExecutive Urology [facility] Clinical Notes 02-25-2022 to 05-29-2025 Note Date & PzqnQownHrvbgalg76-47-2783 Radiology Diagnostic study noteWood County Hospital [address] [place] [address] CT Scan Report Signed Patient: Matty Garces MR#: [id number] : 1970 Acct:[id number] Age/Sex: 54 / M ADM Date: 5 Loc: CT Room: Type: [facility] Attending Dr: Jameel Coats DO Copies to: [...] shaft of the fibula. Diffuse soft tissue swellingis noted from the knee to the ankle. [...] Irving M.D. 05/29/2025 11:40 PM Dictation Location: [facility]17 Transcribed By: [facility] 05/29/25 234 Dictated By: Francis Irving II, MD 05/29/25 605 Signed By: 05/29/252339 [facility] Work Phone: 1(497) 422-280809-03-2025 Telephone encounter Note* Telephone Encounter - Heather Miguel NP - 05/16/2025 8:45 AM EDT OARRS reviewed [facility] HospitalLphyrekhnp86-57-2658 Miscellaneous Notes* Telephone Encounter - Heather Miguel NP - 05/16/2025 8:45 AM EDT OARRS reviewed documented in this encounterBarnes-Jewish HospitalBugxqbaqtl94-11-6056 Evaluation note* Diagnosis Onset Date Resolution Status Admit Date Hypertrophy of bone of lower leg noneactiveAugust 2024 11:21amFracture of right tibia and fibulanoneactive May 07, 2025 11:21amRight leg painnoneactiveAugust 2024 11:21am [facility] Work Phone: 1(640) 967-295307-23-2025 History of Present illness Narrative* Rubén Geiger [...] in all four extremities, including at least projection engineer, finger abductors, biceps, triceps, deltoid, toe flexors [...] refill for Xywav will be sent to [facility]. If symptomspersist or worsen, further [...] up in 3 months. documented in this encounterBarnes-Jewish HospitalTmtgvmckfz38-84-8630 History of Present illness Narrative* Rubén Geiger [...] 1 mg, Oral, 2 times daily HYDROcodone-acetaminophen ([place]) 5-325 MG tablet hydrOXYzine pamoate (Vistaril) 25 [...] in all four extremities, including at least projection engineer, finger abductors, biceps, triceps, deltoid, toe flexors [...] Increase Xywav to 6mg documented in this encounterBarnes-Jewish HospitalJomzhyfjxp66-16-2053 History of Present illness Narrative* Rubén Geiger [...] 1 mg, Oral, 2 times daily HYDROcodone-acetaminophen ([place]) 5-325 MG tablet hydrOXYzine pamoate (Vistaril) 25 [...] in all four extremities, including at least projection engineer, finger abductors, biceps, triceps, deltoid, toe flexors [...] intracranial or extracranial stenosis. documented in this [facility]03-04-2025 Telephone encounter Note* Telephone Encounter - Isabella Manzano - 11/14/2024 9:49 AM EST Pt called for refill on Zofran. [facility] Work Phone: 1(478) 536-188003-04-2025 Miscellaneous Notes* Telephone Encounter - Isabella Manzano - 11/14/2024 9:49 AM EST Pt called for refill on Zofran. documented in this [facility]01-30-2025 Telephone encounter Note* Telephone Encounter - [...] sent and if I search patient chat. [facility] HospitalJirvanmykm10-31-3364 Miscellaneous Notes* Telephone Encounter - Heather Miguel NP - 10/12/2024 7:20 PM EST Did we send in Xywav REMS form for this patient? [facility] pharmacy calls that the form we sent in had white out on the titration section on the form. They need new form without white out on it? I do notsee anything in media sent and if I search patient chat. documented in this encounterBarnes-Jewish HospitalVoqxdphgup07-93-1100 NoteOccupational Therapy Occupational Therapy Treatment Note Patient [...] going to put in a elba toilet. (Farm Equipment Technician suggesting a RTS or to have son put in toilet however, pt stated that he will replace the toilet himself) Objective 1 Pt was up in chair at [facility] with on her way. Objective 2 Farm Equipment Technician provided education on home and bathroom [...] techniques however was able to bring Rio HRAP up to demo ability to reach for [...] Little (Min Henrietta (more content not included)...[facility] 10-11-2024 NoteHospital Medicine Discharge Summary Final Discharge Diagnosis: Left leg cellulitis Open wound of left great toe HTN Anxiety disorder Chronic combined systolic and diastolic Congestive heart failure, NYHA II Closed fracture of right fibula and tibia Admission Diagnosis: Left leg cellulitis [L03.116] Cellulitis of right lower extremity [L03.115] Cellulitis of left leg [L03.116] Hospital course: 54-year-old male who came from [facility] due to left lower extremity [...] Medications These medications were sent to [facility] [place] [address] [address] [place] [address] [place] [address], [facility] [address] Phone (more content not included)...[facility] 10-11-2024 NotePharmacy Dosing Service - [...] or questions Thank you, Sudha Camacho, PharmD, 10/11/24[facility]01-29-2025 Note Attestation signed by Sandrine Field MD at 10/11/2024 8:44 AM By using [...] with any concerns via the Orthopaedic pager ([phone]) at any time. Jazzmine Casanova MD Orthopedic Surgery Resident, PGY 1[facility]01-28-2025 NoteHospital Medicine Daily Progress Note - 10/10/2024 6:40 PM; Room: [address] [place] [address] Admission: 10/08/2024 5:47 AM; Length of stay: 2 days THE HOSPITALIST TEAM PREFERS TO USE [employer] CHAT FOR NON-URGENT COMMUNICATION 7AM-7PM. IF I DO NOT RESPOND WITHIN 20 MINUTES OR URGENT MATTERS, PLEASE CALL THROUGH THE FIELD REPRESENTATIVES DIRECTOR. FROM 7PM-7AM, PLEASE PAGE [phone](COVR). 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 Patient states he would like to resume care with this child and family services worker at discharge. He has not been able to see child and family services worker since previous discharge due to scheduling issues. [...] file Occupational Histor (more content not included)...[facility]01-28-2025 NotePhysical Therapy Physical Therapy Treatment [...] Technique 1 S (more content not included)...[facility] 10-10-2024 Note. Pharmacy Dosing Service [...] 5 days. -Check BUN/SCr daily Altaf Martin, ErinD, 10/09/24[facility]01-27-2025 Note Occupational Therapy Occupational Therapy Evaluation Patient Name: Matty Garces : 1970 Today's Date: 10/09/2024 Time in:1504 Time out: 1526 Present Illness History: 54 y/o M presented from [facility] with R LE cellulitis. Patient was recently [...] Level of Function Prior Function Level of Ronce[place]: Independent with ADLs and functional transfers, Independent [...] transfers and fu (more content not included)...[facility]01-27-2025 Note10/09/24 0909 Admission Assessment Questions [...] Status Interested Does the patient have a classification case manager assigned to them through their insurance? No Living Arrangement (Current/Prior to Hospitalization) Private residence (lives with ) Does the patient have history of HHC or SNF? Yes (Active with [facility]) Assistive Device Wheelchair;Bedside Commode;Walker Patient's [...] able to send link and activate MyChart? NoUnKettering Health [facility]01-27-2025 NoteHospital Medicine Daily Progress Note - 10/09/2024 12:13 PM; Room: [facility]61[facility] Admission: 10/08/2024 5:47 AM; Length of stay: 1 days THE HOSPITALIST TEAM PREFERS TO USE [employer] CHAT FOR NON-URGENT COMMUNICATION 7AM-7PM. IF I DO NOT RESPOND WITHIN 20 MINUTES OR URGENT MATTERS, PLEASE CALL THROUGH THE FIELD REPRESENTATIVES DIRECTOR. FROM 7PM-7AM, PLEASE PAGE [phone](COVR). Code Status: Full Code Barriers to Discharge: [...] , FREET4 , CORTISOL , FEV1 , LQN8AEA , DLCO , RVSP , HDL , LDL No results found for: BMPMNWBG48 , IRON , TIBC , C3 , [...] fixation tibia fracture. Electronically signed: Scott Bello Discharge Planning Expected Discharge Disposition: Home-Health Care c () PT Discharge Recommendations: Home PT Signed C (more content not included)...[facility]01-27-2025 NotePhysical Therapy Physical Therapy Re-Evaluation Patient Name: Matty Garces : 1970 Today's Date: 10/09/2024 General Subjective: Attempted to see pt earlier today (4344-9600) for mobility assessment. Pt deferred d/t pain [...] Therapeutic Exercise Therape (more content not included)...[facility] 10-09-2024 Note. Pharmacy Dosing Service [...] -Check BUN/SCr daily Altaf Martin, PharmD, 10/09/24[facility]01-27-2025 Note Orthopaedic Surgery Orthopaedic Surgery [...] weeks s/p r tibial imn with Dr Field. Appears to have superficial cellulitis of the [...] Rivas MD Orthopaedic Surgery, PGY-2 Ortho Pager [phone] 10/09/24 6:38 AM I am available via [employer] 6a-6p. May contact the on-call resident with any concerns via the Orthopaedic pager at any time.[facility]01-26-2025 NoteCase was discussed with the AYAKA on 10/08/2024. I agree with the history, physical, assessment, and plan of care. I discussed the findings and therapeutic plan. I agree with the documentation, except for any updates below. Fabiola Wade, [facility]01-26-2025 NotePhysical Therapy Evaluation Patient Name: Matty Garces Today's Date: 10/08/2024 Admit Date: 10/08/2024 Time In: 1:20pm Time Out: 1:45pm Cumulative minutes: 25 minutes Billed minutes: 25 minutes; 15 min eval; 10 min therapeutic exercise to review HEP x10 reps. History of present illness Per H&P: Matty Garces is an 54 y.o. male who came from [facility] with LLE cellulitis. Patient has PMH of hypertension, diastolic heart failure, GERD, anxiety. He recently was admitted here and had right leg tib/fib fracture and seen by our ortho team and had closed insertion with intramedullary wendy on 09/24/24 and was discharged home. He reports he went to [place] ER due to increased pain, swelling and [...] patient refused this stating [facility] and wants to go home. Vascular surgery was consulted for a chronic left foot ulcer. Pulmonary navigator was consulted for PATEL and recommended OP sleep study. On day of discharge, Trauma team was informed at approximately 1730 per [facility] that patient went into a-flutter and sustained for approximately 2 hours from approximately 2044-6162. Trauma team ordered a STAT ECG and [...] to leave CHASIDY vega paperwork reviewed and signed, patient left hospital [...] status. Objective assessment (more content not included)...[facility]01-26-2025 NotePharmacy Dosing Service - Vancomycin Initial Consult Note Pharmacy has been consulted for the dosing and evaluation of Drug: Vancomycin Indication: complicated skin and soft tissue infection AUC 400-600 mg*hr/L and trough 10-20 mcg/mL Other Antimicrobial Regimens: cefepime Labs and Renal Function Total body weight: 134 kg (295 lb) [place] body weight: 82.2 kg (181 lb 3.5 [...] Comments: - 54 year old male from [place] with LLE cellulitis -Had intramedullary wendy placed [...] or questions Thank you, Altaf Martin, PharmD, 10/08/24UnK[facility]tering [facility]01-26-2025 Note Will consult wound careUnKettering Health [facility]01-26-2025 Note Continue vanco and zosyn Ortho following Will get blood culturesUnKettering Health [facility]ble01-26-2025 Note Continue citalopram, clonazepamUnKettering Health [facility]01-26-2025 NoteContinue modafinil, coregUnKettering Health Preble01-26-2025 Note Not in exacerbation Continue furosemide, coreg, asaUnKettering Health Preble01-26-2025 NoteOrtho following, concern for possible infection Admit to med surg Activity orders per ortho with LLE Cardiac diet Will get labs this morning and follow up on results Daily bmp and cbc to monitor kidney function, electrolytes, hgb and wbc Case will be discussed with attending physicianUnKettering Health [facility]01-26-2025 NoteHospital Medicine History and Physical 10/08/2024 7:26 AM THE HOSPITALIST TEAM PREFERS TO USE [employer] CHAT FOR NON-URGENT COMMUNICATION 7AM-7PM. IF I DO NOT RESPOND WITHIN 20 MINUTES OR URGENT MATTERS, PLEASE CALL THROUGH THE FIELD REPRESENTATIVES DIRECTOR. FROM 7PM-7AM, PLEASE PAGE [phone](COVR). Chief Complaint Chief Complaint Patient presents with Cellulitis History of Present Illness Matty Garces is an 54 y.o. male who came from [facility] with LLE cellulitis. Patient has PMH of hypertension, diastolic heart failure, GERD, anxiety. He recently was admitted here and had right leg tib/fib fracture and seen by our ortho team and had closed insertion with intramedullary wendy on 09/24/24 and was discharged home. He reports he went to [place] ER due to increased pain, swelling and [...] this hospital stay by a member of [facility]. Past Medical History Past Medical History: [...] No Food Insecurity (more content not included)...[facility]01-20-2025 Telephone encounter Note* Telephone Encounter - Marianna Sheehan LPN - 10/02/2024 2:19 PM EST Provigil refill request to [facility] sent to provider. Last appt. 07/03/24 [facility] Bkpppmnuue26-91-2431 Miscellaneous Notes* Telephone Encounter - Marianna Sheehan LPN - 10/02/2024 2:19 PM EST Provigil refill request to [facility] sent to provider. Last appt. 07/03/24 documented in this encounterBarnes-Jewish HospitalAtjraqhpjs63-08-3183 NoteTrauma team informed at approximately 1730 per [facility] that patient went into a-flutter and sustained for approximately 2 hours from approximately 7046-3780. Trauma team ordered a STAT ECG and [...] tonight, AMA AMA paperwork reviewed and signed UnK[facility]tering [facility]01-16-2025 Note09/28/24 1537 Home Oxygen Therapy Evaluation Pulse Oximetry on room air at Rest 94 Pulse Ox on room air while walking 96 Patient Qualification for home oxygen Does not qualify for home oxygen this visit (When pt is sleeping, apnea is noted and at times saturation drops but when pt is awake and moving his oxygenation is stable)[facility]01-16-2025 NoteUnTrumbull Regional Medical Center Trauma Surgery Progress Note [...] Temporal (09/28 1199) Heart Rate: [75-102] 75 (01/16 1200) Resp: [12-26] 25 (09/28 1200) SpO2: [95 %-100 %] 95 % (09/28 1200) Height: -- Weight: [135 kg (296 lb 15.4 oz)] 135 kg (296 lb 15.4 oz) (09/28 0354) Kennedy Coma Scale Score: 15 FiO2 (%): [...] Value Ventricular Rate 82 Atrial Rate 82 MS Interval 164 QRS DURATION 92 QT Interval 386 QTC CALCULATION(BAZETT) 450 P [place] 61 R-[place] 18 T Wave [place] 69 Impression Normal sinus rhythm Normal ECG [...] C, PT/OT recommending walker, commode, and rolling wheelchair.[facility]01-16-2025 Note Physical Therapy Physical Therapy [...] commode, and recliner (more content not included)...[facility]01-16-2025 NoteOccupational Therapy Occupational Therapy Treatment [...] apnea) Gastroesophageal reflux disease Obese Co-tx with LOSS MITIGATION SPECIALIST to facilitate purposeful activity, 2/2 high fall risk, impaired dyn standing balance & act tolerance, poor safety awareness, & poor safety awareness with STS, transfers, & functional ambulation; To maintain safety of patient & staff. 09/28/24 1358 OT Last Visit OT Received On 09/28/24 General Subjective I got my w/c 3rd hand...from my vgiovr-dc-akd. Treatment Duration (min) 55 Minutes Response to [...] not maintain precs. General Assessment Hearing mild [place] Skin Integrity ALVARO wrap to RLE, DFU to L great toe Grooming Grooming Level of Assistance Setup Grooming Where Assessed Other (Comment) (sitting on [facility] [place] [place] Grooming Comments to complete facial care & oral care with cues for continuation, 2/2 perseverance. UE Bathing UE Bathing Level of Assistance Setup UE Bathing Where Assessed Other (Comment) ([facility] [place] [place] UE Bathing Comments to complete 100% UBB sitting on [facility] [place] [place]. Cues for continuation, 2/2 perseveration. LE Bathing LE Bathing Level of Assistance Contact guard LE Bathing Where Assessed Other (Comment) ([facility] [place] [place] LE Bathing Comments BLEs bathed sitting on [facility] [place] [place]; Pt stood with device for mary lou-hygiene & required CGA to maintain balance. UE Dressing UE Dressing Level of Assistance Setup UE Dressing Where Assessed Sitting in chair UE Dressing Comments to don gown Toileting Toileting Level of Assistance Contact guard Where Assessed Bedside commode Toileting Comments CGA during mary lou-care post BM, standing at [facility] [place] [place]. Unsteadiness present. Static Sitting Balance Static Sitting-Balance Support Feet supported Static Sitting-Level of Assistance Distant supervision Static Sitting-Comment/Number of Minutes Supervision for safety Dynamic Sitting Balance Dynamic Sitting-Balance Support Feet supported;Unilateral upper extremity supported Dynamic Sitting Balance-Level of Assistance Close supervision Dynamic Sitting-Comments SBA for safety scooting EOB, positioning on [facility] [place] [place] Static Standing Balance Static Standing-Balance Support With [...] mary lou-care & hygiene in stance at [facility] [place] [place] with RW. Add'l SBA for safety. Pt very unsteady with poor awareness. CGA during functional ambulation with device. Cues for safety awareness, & maintaining WB precs. Bed Mobility 1 Bed Mobility From 1 Supine Bed Mobility Type 1 To Bed Mobility to 1 Short sit Level of Assistance 1 Close superv (more content not included)...[facility]01-16-2025 NoteCalled [employer] by phone to check on status of pt's DME (wheelchair, walker, bedside commode). Was advised they did not receive it via [employer] and would need it direct faxed to [phone]. Faxed referral and was advised they will [...] to call . UPDATE 3:05PM- Spoke with [employer] again and was advised the wheelchair could [...] discharge around 6pm tonight. Also spoke with [facility] and was provided w/ fax [phone] to send AVS once ready. UPDATE 4:05PM- Direct faxed final AVS to [facility]01-16-2025 [facility] W[facility] Surgery [...] Unchanged cardiomediastinal silho (more content not included)...[facility]01-15-2025 NoteDischarge Planning: Home with [facility] The patient was accepted by [facility]. DME referral sent to [employer]. The patient would like the DME either delivered to the hospital or his home prior to discharge.[facility]01-15-2025 Note Occupational Therapy Occupational Therapy Treatment Patient Name: Matty Garces : 1970 Today's Date: 09/27/2024 Time in:1357 Time out:1450 Total time:53 minutes,23 min OT, additional for LOSS MITIGATION SPECIALIST [place] provided to maximize safety as progressed [...] etc Transfers 2 (more content not included)...[facility]01-15-2025 Note Physical Therapy Physical Therapy [...] for lift, balance, (more content not included)...[facility]01-15-2025 Note Attestation signed by Fahad Rizzo MD at 09/28/2024 7:41 AM Patient seen and examined with trauma team [facility] Trauma Surgery Progress Note Subjective Patient [...] kg (299 lb 2.6 oz) (09/27 338) [place] Coma Scale Score: 15 Intake/Output Summary (Last [...] Value Ventricular Rate 82 Atrial Rate 82 MS Interval 164 QRS DURATION 92 QT Interval 386 QTC CALCULATION(BAZETT) 450 P [place] 61 R-[place] 18 T Wave [place] 69 Impression Normal sinus rhythm Normal ECG [...] acute findings. Respiratory: (more content not included)...[facility] 09-26-2024 NotePer patients patient was to start with Radha [facility] on the day of admit. Referral made as requested. SW following.[facility]01-14-2025 [facility]UnTr[facility] Vascular and Wound Surgery DAILY PROGRESS NOTE Subjective Patient seen and examined at bedside. No acute events overnight. Vital signs stable. Denies pain to the left ulcer. Patient states he follows regularly with child and family services worker at [facility] and plans to follow-up with [...] BID simvastatin, 20 mg, oral, Nightly Imaging: [facility] Carotid Artery Duplex Bilateral Narrative: Procedure: [...] oxygen requirements. COMPARISON: (more content not included)...[facility] 09-26-2024 NoteOccupational Therapy Occupational Therapy [...] on with B LE's elevated Objective 2 Farm Equipment Technician discussed importance of discharging to facility for continued therapy prior to going home however, pt declines. Pt transfers are currently unsafe with typewriters functional tester questioning ability to maintain WB status. OT [...] Other Pt is impulsive during standing/transfer activities. Farm Equipment Technician questions pts safety while at home. [...] endurance, Decreased functional mobility, Decreased IADLs OT Assessment/MOLD PRESSER Summary: Pt would benefit from continued therapy [...] Endurance training, Patient/f (more content not included)...[facility]01-14-2025 NoteOrthopaedic Surgery Orthopaedic Surgery Progress [...] Patient will need to follow-up with Sandrine Field MD 10-14 days from day of surgery upon discharge. Please call orthopedic surgery with any questions or concerns. Can be reached at the orthopedic pager: [phone] Luis Felipe Rivas MD 09/26/24 7:24 AM Ortho Pager: [phone]01-14-[facility] Note [facility] Trauma Surgery Progress Note Subjective Subjective: [...] kg (303 lb 9.2 oz) (09/26 0433) [place] Coma Scale Score: 15 Intake/Output Summary (Last [...] Value Ventricular Rate 82 Atrial Rate 82 MS Interval 164 QRS DURATION 92 QT Interval 386 QTC CALCULATION(BAZETT) 450 P [place] 61 R-[place] 18 T Wave [place] 69 Impression Normal sinus rhythm Normal ECG [...] workup -Telemetry monitori (more content not included)...[facility]01-13-2025 NotePt was seen early this morning about wearing BiPap for possible sleep apnea due to periods of apnea and decreased oxygen saturation overnight. Pt refused BiPap, stating he has tried it before and it gives him migraines. Pt was agreeable to wearing a salter at night to help with oxygenation.[facility]01-13-2025 Note09/25/24 1528 Referral Data Referral Source drafting layout worker Referral Reason Follow up;Information Patient Information Primary Caregiver Spouse Activities of Daily Living Assistive Device Walker;Wheelchair Behavior Oriented Communication Talks;Understands speaking Discharge Planning Living Arrangements Spouse/significant other Support Systems Spouse/significant other Type of Residence Private residence;[facility] (await name of agency from ) Post Acute Services In home services (agreeable to [facility]) Type of Home Care Services (Current) Skilled Home Servicies;Home OT;Home PT ([facility] was just going to start services before admit) Patient's goal for discharge home with [facility] Does the patient need discharge transport arranged? No () Screened by [facility]. Pt declines SNF placement and is agreeable to take pt home with [facility]. Await name of [facility] agency that was approved to start services. Pt will likely need RT for home O2. Will follow up with pt's for [facility] agency. thinks [facility] agency [facility] or [facility]. SW will follow with referrals.[facility]01-13-2025 Note09/25/24 1332 Admission Assessment Questions Verify insurance [...] Status Interested Does the patient have a classification case manager assigned to them through their [...] completed with , patient deferred to .[facility]01-13-2025 NoteThe findings from this face to face encounter indicate the reason this patient requires a bedside commode. Patient is physically incapable of using regular toilet facilities. Patient is confined to 1 level of the home with no toilet on that level [facility]ilou Tomlin [facility] Department of Surgery - Trauma [phone]01-13-2025 NoteThe findings from this face [...] is provided in the home Marilou Tomlin [facility] Department of Surgery - Trauma [phone]01-13-2025 NoteThe findings from this face [...] have been discussed with the patient Marilou MCDOWELL Department of Surgery - Trauma [phone]01-13-2025 NotePhysical Therapy Physical Therapy Evaluation [...] male admitted 09/23/24 as a transfer from [facility] complaining of R tibial shaft transverse fx [...] demo General Assessment General Assessment Hearing: mild KOTZEBUE Skin Integrity: alvaro wrap to RLE, wound [...] Level of Function Prior Function Level of Ronceverte: Independent with ADLs and functional transfers, Independent [...] Perception Inattention/Neglect: A (more content not included)...[facility]01-13-2025 Note Attestation signed by Gabriel [...] meet criteria for admission to [facility]: Assessment: [place] fracture of the right tibial shaft and [...] Plan of Care: Patient with diagnosis of [place] fracture of the right tibial shaft and [...] TID wit (more content not included)... [facility]01-13-2025 NoteOccupational Therapy Occupational Therapy Evaluation [...] carryover General Assessment General Assessment Hearing: Mild [place] Skin Integrity: ALVARO wrap to RLE, DFU [...] heel WB de (more content not included)...[facility]01-13-2025 NoteOrthopaedic Surgery Orthopaedic Surgery Progress [...] Patient will need to follow-up with Sandrine Field MD 10-14 days from day of surgery upon discharge. Luis Felipe Rivas MD 09/25/24 7:02 AM Ortho Pager: [phone] [facility] Center01-13-2025 Note [facility] Trauma Surgery Progress Note Subjective Subjective: [...] kg (309 lb 4.9 oz) (09/25 299) [place] Coma Scale Score: 15 Intake/Output Summary (Last [...] Value Ventricular Rate 82 Atrial Rate 82 MS Interval 164 QRS DURATION 92 QT Interval 386 QTC CALCULATION(BAZETT) 450 P [place] 61 R-[place] 18 T Wave [place] 69 Impression Normal sinus rhythm Normal ECG [...] lou-colace an (more content not included)... [facility]01-12-2025 [facility]UnTr[facility] Vascular Surgery/Wound Care CONSULTATION Reason for Consult: Left foot ulcer Subjective History of Present Illness: Matty Garces is a 53 y.o. male with a PMH of DM, HTN, HF and recent cellulitis to [facility] . He is admitted for transverse [...] oral, BID, ROMAIN Acevedo, 1 tablet at 09/24/248 Social History Socioeconomic History Marital status: Spouse [...] Pulmonary: Effort: Pulmonar (more content not included)...[facility]01-12-2025 NoteOrthopaedic Surgery Orthopaedic Surgery Progress [...] Patient will need to follow-up with Sandrine Field MD 10-14 days from day of surgery upon discharge. LAZ BRO MD 09/24/24 10:29 PM Ortho Pager: [phone] Health [facility]01-12-2025 Note Patient: Matty Garces Procedure Summary Date: 09/24/24 Room / Location: [facility] OPERATING ROOM 05 / [facility] Operating Room Anesthesia Start: 1020 Anesthesia Stop: 1324 Procedure: CLOSED INSERTION, INTRAMEDULLARY WENDY, TIBIA (Right: Leg Lower) Diagnosis: Closed fracture of right tibia and fibula, initial encounter Fall at home, initial encounter (Closed fracture of right tibia and fibula, initial encounter [S82.201A, S82.401A]) (Fall at home, initial encounter [W19.XXXA, Y92.009]) Surgeons: Sandrine Field MD Responsible Provider: Jeffery Casey MD Anesthesia [...] Hydration status: acceptable No notable events documented.[facility]01-12-2025 Note Airway Date/Time: 09/24/2024 10:35 AM Urgency: elective General Information and Staff Patient location during procedure: OR Anesthesiologist: Jeffery Casey MD Resident/COATING SUPERVISOR/CAA: Kenneth Marina MD Performed: resident/COATING SUPERVISOR/CAA Indications and Patient Condition Indications for [...] approach: 1 Number of other approaches attempted: 0UnKettering Health [facility] 09-24-2024 NotePatient: Matty Garces Procedure Information Date/Time: 09/24/24 1000 Procedure: CLOSED INSERTION, INTRAMEDULLARY WENDY, TIBIA (Right: Leg Lower) Location: [facility] OPERATING ROOM 05 / [facility] Operating Room Surgeons: Sandrine Field MD Relevant Problems Anesthesia (+) PATEL (obstructive [...] Value Ventricular Rate 97 Atrial Rate 97 MS Interval 156 QRS DURATION 84 QT Interval 368 QTC CALCULATION(BAZETT) 467 P [place] 54 R-[place] 60 T Wave [place] 12 Impression Normal sinus rhythm Normal ECG [...] with attending and resident. Additional Equipment RequestsMetroHealth Parma Medical Center01-12-2025 Note Subjective Patient resting comfortably [...] kg (304 lb 3.8 oz) (09/24 951) [place] Coma Scale Score: 15 Intake/Output Summary (Last [...] to LLE, wounds (more content not included)...[facility]01-12-2025 NotePhysical Therapy Name: Matty Garces Date of : 1970 Today's Date: 09/24/24 Pt is unable to be seen for therapy at this time secondary to Surgery today for fixation of frature. Will check back and complete therapy session as appropriate. Check No Charge Time attempted: 0759 Janet Lovelace PT, [facility]ENTERUnK[facility]01-12-2025 Note Orthopaedic Surgery Orthopaedic Surgery Progress Note [...] Rivas MD Orthopaedic Surgery, PGY-2 Ortho Pager [phone] 09/24/24 7:29 AM I am available via [employer] 6a-6p. May contact the on-call resident with any concerns via the Orthopaedic pager at any time.[facility]10-22-2024 Telephone encounter Note* Telephone Encounter - Nita Anthony - 07/04/2024 4:10 PM EDT left message regarding prescriptions earlier today and not being at pharmacy. I did call back and spoke to advising they were sent this afternoon. had mentioned Dr. Geiger was also going to start a Vitamin B to help boost energy in the morning. Q Chip in [place]. [facility] [phone] Miscellaneous Notes* Telephone Encounter - Nita Anthony - 07/04/2024 4:10 PM EDT left message regarding prescriptions earlier today and not being at pharmacy. I did call back and spoke to advising they were sent this afternoon. had mentioned Dr. Geiger was also going to start a Vitamin B to help boost energy in the morning. Q Chip in [place]. documented in this encounterBarnes-Jewish [id number] History of Present illness Narrative* Rubén Geiger [...] 1 mg, Oral, 2 times daily HYDROcodone-acetaminophen ([place]) 5-325 MG tablet hydrOXYzine pamoate (Vistaril) 25 [...] reflexes: Alycia's absent. Ankle clonus absent. Coordination Pwytkn-gv-vfzp, rapid alternating movements and vjwq-sn-fvdy normal bilaterally without dysmetria. Gait Normal casual, [...] Follow up 3 months. documented in this encounterBarnes-Jewish [id number] NotePROCEDURE: XR FOOT LT MIN 3 VIEWS [...] Electronically authenticated by: ALVINA CAICEDO Date: 2022-03-26 10:47[facility]06-15-2022 Hospital Discharge instructions Patient Education [...] Watch the hydrocele for any changes. Take royq-odf-hdzwlwk and prescription medicines only as told by [...] 02/17/2011 Document Revised: 09/10/2018 Document Reviewed: 09/10/2018 [employer] Patient Education 2020 [employer]. 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 Excessive daytime sleepiness Cervical disc disorder Intractable chronic migraine with aura with status migrainosus documented in [facility] encounter [facility]* Diagnosis Onset Date Resolution Status Admit Date Hypertrophy of bone of lower leg noneactiveAugus2024 11:21amFracture of right tibia and fibulanoneactive May 07, 2025 11:21amRight leg painnoneactiveAugus2024 11:21am [facility] Work Phone: Evaluation note* Diagnosis Excessive daytime sleepiness Primary insomnia Persistent disorder of initiating or maintaining sleep documented [facility] encounter [facility]* Diagnosis Excessive daytime sleepiness Obstructive sleep apnea Obstructive sleep apnea (adult) (pediatric) documented in [facility] HealthcareProgress note No data available for this section [facility] reason for referral (narrative)No reason for referral information availableDayton Va Medical Center Work Phone: Summary Purpose Family History No [...] 11:42am Hospital Course Note MR#: [id number] I [facility] Pt. Name: Matty Garces Admitted: 01/30/2019 [...] 2025 11 :21am Chief Complaint Admit Date H NEW RT TIB FIB FX W POSSIBLE [...] and content) DATE CREATED AUTHOR 07/19/2019 [facility] DATE CREATED AUTHOR AUTHOR'S ORGANIZ ATION 02/27/2022 [facility] DATE CREATED AUTHOR AUTHOR'S ORGANIZ ATION 12/08/2022 [facility] DATE CREATED AUTHOR AUTHOR'S ORGANIZ ATION 12/03/2023 [facility] DATE CREATED AUTHOR AUTHOR'S ORGANIZ ATION 10/15/2024 [facility] DATE CREATED AUTHOR AUTHOR'S ORGANIZ ATION 04/05/2025 [facility] DATE CREATED AUTHOR AUTHOR'S ORGANIZ ATION 06/23/2025 [facility] Care Team (unrecognized sect ion and content) Team Status: Inactive Member Role Status Dates Trey Vallejo DPM MS Attending Provider Active Start: January 03, 2024 End: January 03, 2024Team MemberRelationshipSpecialtyStart DateEnd Date Venus Jaeger MD [address] [place] [address] PCP - Generalmi Medicine01/10/24Team MemberRelationshipSpecialtyStart DateEnd Date Venus Jaeger MD [address] [place] [address] PCP - Generalmi Medicine01/10/24Team MemberRelationshipSpecialtyStart DateEnd Date Venus Jaeger MD [address] [place] [address] PCP - Generalmi Medicine01/10/24Team MemberRelationshipSpecialtyStart DateEnd Date Venus Jaeger MD [address] [place] [address] PCP - Generalmi Medicine01/10/24 Team Status: Inactive Member Role Status Dates Trey Vallejo DPM MS Attending Provider Active Start: September 21, 2024 End: September 21, 2024Team MemberRelationshipSpecialtyStart DateEnd Date Vneus Jaeger MD [address] [place] [address] PCP - GeneralFamily Medicine01/10/24Team MemberRelationshipSpecialtyStart DateEnd Date Venus Jaeger MD [address] [place] [address] PCP - GeneralFamily Medicine01/10/24Team MemberRelationshipSpecialtyStart DateEnd Date Venus Jaeger MD [address] [place] [address] PCP - Generalmi Medicine01/10/24Team MemberRelationshipSpecialtyStart DateEnd Date Venus Jaeger MD [address] [place] [address] [facility] - [facility]01/10/24Team MemberRelationshipSpecialtyStart DateEnd Date Venus Jaeger MD [address] [place] [address] PCP - GeneralFamily Medicine01/10/24Team MemberRelationshipSpecialtyStart DateEnd Date Venus Jaeger MD PCP - GeneralFamily Medicine01/10/24Team MemberRelationshipSpecialtyStart DateEnd Date Venus Jaeger MD PCP - GeneralFamily Medicine01/10/24Team MemberRelationshipSpecialtyStart DateEnd Date Venus Jaeger MD PCP - GeneralFamily Medicine01/10/24 Team Status: Active Member Role Status Lacey Jaeger MD Primary Care Provider Active Team Status: Inactive Member Role Status Lacey Jaeger MD Primary Care Provider Active Start: May 07, 2025 End: May 07, 2025JuDania Paulson ProviderActiveStart: May 07, 2025 End: May 07, 2025Team MemberRelationshipSpecialtyStart DateEnd Date Venus Jaeger MD PCP - [facility]01/10/24Team MemberRelationshipSpecialtyStart DateEnd Date Venus Jaeger MD PCP - [facility]01/10/24 Team Status: Inactive Member Role Status Dates Venus Jaeger MD Primary Care Provider Active Start: May 29, 2025 End: May 29, 2025Jameel Eze Dania Coats ProviderActiveStart: May 29, 2025 End: May 29, 2025 Team Status: Inactive Member Role Status Dates Bonnie Ernandez MD Attending Provider Active Sta rt: June 20, 2025 End: June 20, 2025 Goals (unrecognized section and content) Goals may be documented in a n alternate section Reason for Visit (unrecogniz ed section and content) ReasonCommentsMed RefillReasonCommentsNarcolepsySleep Apnea FOR RECORDS PERTAINING TO PATIENTS WHO [...] ON THE PRIMARY CLINICAL RECORDS. [facility] [employer] [facility]. provides no warranty or guarantee of the accuracy or completeness of information in this document.
== END 2025-07-10 11:25 | disposition home or self-care (01) ==
LOC: WC 11:25
PROVIDERS: PCP Family Medicine; Visit Provider Physician Assistant
DX: T87.89 Other complications of amputation stump (principal)
CPT/HCPCS: G0463

== ENCOUNTER 2025-07-18 11:34 | Outpatient (OUT) | payer MEDICAID, SELFPAY ==
--- OUTSIDE RECORDS SUMMARY | 2025-03-15 05:00 | XMS_ITS ---
Author Organization The [facility] in [place] Address [address] [place] [id number] Care Team Providers Care Logistics Program Manager Name Role Phone Kareem Mendez Primary Care Provider [phone] REASON FOR VISIT [facility] d/c-24 LEG PAIN Encounters Encounter Location Date Provider Diagnosis [facility] [address] [place] [address] 03/15/2025 Kareem Mendez Plan Of Treatment Next Appt Details Provider Name:Kareem Mendez, 10:45:00 AM, [address] [place], [address], Progress Notes * Alden WADE TDOB: 0 (54 yo M)Acc No.[id number]:03/15/2025 UNLOCKED PROGRESS NOTE Progress Note Patient: Francisco Javier VAZQUEZw Toni :?Caden Cohn Andrea ([facility]), MDDOB:1970???Age: 54 Y???Sex:MaleDate:03/15/2025Phone:[phone]:[id number] [facility] [address], [place], [place] Subjective: * Chief Complaints: * 1 . tb d/c-6/24 LEG PAIN. * Medical History: Objective: * Vitals: Assessment: Plan: * Treatment: * * Electronic signature of Kareem Mendez MD, [id number] on 07/18/2025 at 11:36 AM EST Sign off status: PendingVisit Status:?N/S N/C (No Show/No Charge) * Provider: Sarah Mendez ([facility])MD Date: 0 03/15/2025 Generated for Printing/Faxing/eTransmitting on:?07/18/2025 11:36 AM EST
--- OUTSIDE RECORDS SUMMARY | 2025-07-18 11:37 | XMS_ITS | Patient Health Record ---
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 Science Teacher Name Role Phone Fela Álvarez Primary Care Provider Stephie aClzada Unavailable [phone] Reason For Referral No Information Encounters Encounter Location Date Provider Diagnosis [facility] [address] [place] [address] 02/15/2025 [facility] [place] [address]/06/2025Fivinnie MessinaCracked tooth K03.81 ; Dental caries on pit and fissure surface penetrating into dentin K02.52 ; Necrosis of pulp K04.1 ; Encounter for dental examination and cleaning with abnormal findings Z01.21 ;Other dental procedure status Z98.818 and Partial loss of teeth, unspecified cause, class I K08.401 Assessments Encounter Date Diagnosis (ICD Code) Assessment Notes Treatment Notes Treatment Clinical Notes Section Notes 01/16/2025 Cracked tooth (ICD-10 - K03.81) 01/16/2025Dental caries on pit and fissure surface penetrating into dentin (ICD- 10 - K02.52)01/16/2025Necrosis of pulp (ICD-10 - K04.1)01/16/2025Encounter for dental examination and cleaning with abnormal findings (ICD-10 - Z01.21) 01/16/2025Other dental procedure status (ICD-10 - Z98.818)01/16/2025Partial loss of teeth, unspecified cause, class I (ICD-10 - K08.401) Plan Of Treatment No Information Insurance Providers Payer Name Payer Address Payer Phone Subscriber Number Group Number Insured Name Patient Relationship to Insured Coverage Start Date Coverage End Date [facility] [place] DQ Terminated [address] [place] [address] [id number] Haily WADE - patient is the ewsrkui71/01/2023Dental Wrap [facility] [place] [employer] Termed [address] [place] [id number] Haily WADE - patient is the [id number] 2022[employer]AL [employer] [address] [address] [place] [phone], ANDREWSelf - patient is the [id number] 2025
--- OUTSIDE RECORDS SUMMARY | 2025-07-18 11:37 | XMS_ITS | Clinical Summary ---
Author Organization [facility] Address [address] [place] [place] [address] Care Team Providers Care Drum Worker Name Role Phone Caden Mendez MD Primary Care Provider [phone] Christiano Geiger MD Unavailable [phone] Trey Vallejo DPM Unavailable [phone] Allergies No known active allergies Medications MedicationSigDispense [...] ProblemNoted DateDiagnosed DateCellulitis of left leg10/09/2024Left leg hltmeuciwz50/26/2025 Assessment & Plan (10/08/2024 7:47 AM EST): Continue vanco and zosyn Ortho following Will get blood cultures Open wound of left great toe10/08/2024 Assessment & Plan (10/08/2024 8:36 AM EST): Will consult wound care HTN (hypertension)09/24/2024 Assessment & Plan (10/08/2024 7:47 AM EST): Continue modafinil, coreg PATEL (obstructive sleep apnea)09/24/2024Gastroesophageal reflux yfeuojr3809/24/2024 Obese09/24/2024Fall at home, initial juxwwajhr32/11/2025losed fracture of right fibula and tibia09/23/2024 Assessment & Plan (10/08/2024 7:47 AM EST): Ortho following, concern for possible infection Admit to med surg Activity orders per ortho with LLE Cardiac diet Will get labs this morning and follow up on results Daily bmp and cbc to monitor kidney function, electrolytes, hgb and wbc Case will be discussed with attending physician Non-ischemic thhkrlulwidmzl34/27/2023iastolic dysfunction with chronic heart rzuhyok6206/09/2023enign hypertensive cardiomyopathy with heart tpkmzod7906/09/2023 Chronic combined systolic and diastolic congestive heart failure, NYHA class 2 06/09/2023 Overview (06/09/2023): EF 45-50% with mild DD Assessment & Plan (10/08/2024 7:47 AM EST): Not in exacerbation Continue furosemide, coreg, asa Anxiety tacjdujp55/29/2006 Assessment & Plan (10/08/2024 7:47 AM EST): Continue citalopram, clonazepam Social History Tobacco UseTypesPacks/DayYears UsedDateSmoking Tobacco: NeverSmokeless Tobacco: Never Tobacco Cessation:Counseling Given: Not Answered Alcohol UseStandard Drinks/WeekCommentsYes0 (1 standard drink = 0.6 oz pure alcohol)monthlyMED[facility] UtilitiesAnswerDate RecordedIn the past 12 months has the [employer], or water [employer] threatened to shut off services in your home?No10/08/2024Humiliation, Afraid, Rape, and Kick questionnaireAnswerDate RecordedWithin the last year, have you been afraid of your partner or ex-partner?No10/08/2024Emotionally AbusedNot on file10/08/2024Physically Abused Not on file10/08/2024Sexually AbusedNot on file10/08/2024Overall Financial Resource Strain (CARDIA)AnswerDate RecordedHow hard is it for you to pay for the very basics like food, housing, medical care, and heating?Not very hard 10/08/2024UT Safety & EnvironmentAnswerDate RecordedFear of Current or Ex-PartnerNot on file11/04/2023Emotionally AbusedNot on file11/04/2023hysically AbusedNot on file11/04/2023Sexually AbusedNot on file11/04/2023hysically or Sexually AbusedNot on file11/04/2023TransportationAnswerDate RecordedIn the past 12 months, has lack of transportation kept you from medical appointments or from getting medications?No10/08/2024Lack of Transportation (Non-Medical)Not on file 10/08/2024Housing Stability Vital SignAnswerDate RecordedIn the last 12 months, was there a time when you were not able to pay the mortgage or rent on time?No 10/08/2024Number of Times Moved in the Last YearNot on file10/08/2024t any time in the past 12 months, were you homeless or living in a mcc (including now)? No10/08/2024Hunger Vital SignAnswerDate RecordedWithin the past 12 months, you worried that your food would run out before you got the money to buymore.Never true10/08/2024Ran Out of Food in the Last YearNot on file10/08/2024Sex and Gender InformationValueDate RecordedSex Assigned at PyjjgKazt92/11/2025 11:46 AM ESTLegal DlxJksw6203/11/2022 10:17 PM EDTGender OlyovjieAgrg98/11/2025 11:46 AM ESTSexual OrientationChoose not to hvostnjk55/11/2025 11:46 AM EST Last Filed Vital Signs Vital SignReadingTime TakenCommentsBlood Avkudfto871/8810/11/2024 6:26 AM EST Vbgwb5694/29/2025 6:26 AM HYIZyuaxpmnqrh62.7 ??C (98.1 ??F)10/11/2024 6:26 AM ESTRespiratory Bhdk190810/11/2024 6:26 AM ESTOxygen Gxhipmzwyu68%10/11/2024 6:26 AM ESTInhaled Oxygen Concentration--Cbipxl763 kg (231 lb 7.7 oz)10/10/2024 6:57 AM OUIOsldtt933 cm (6' 2 )10/08/2024 5:58 AM ESTBody Mass Index29.72010/08/2024 5:58 AM EST Plan of Treatment Health MaintenanceDue DateLast DoneCommentsCT Wmeqqggvvphe94/21/1970Colonoscopy 1969Colorectal Cancer Whtnmmqyj58/21/1970Diabetes: Hemoglobin A1C 1969FIT-DNA1969FIT1969FOBT1969 8475Riymwcvcsygcu80/21/1970 Diabetes: Retinopathy Qmajlansy49/21/1980Depression Pjultxdqc06/21/1982Diabetes: Urine Protein Awbuydlzl49/21/1989Hepatitis B Vaccines (1 of 3 - 19+ 3-dose series)1988Pneumococcal Vaccine: Pediatrics (0 to 5 Years) and At-Risk Patients (6 to 64 Years) (1 of 2 - PCV)1988Adult Pzshxhf9810/03/1991Zoster Vaccines (1 of 2)2019COVID-19 Vaccine ( season)2025 08/18/2021, 12/24/2020, 12/02/2020Influenza Vaccine (#1)51, 07/06/2023, 07/15/2022, Additional history existsHIB VaccinesAged OutNo [...] 09/24/2024 by Sandrine Field [facility]ail[facility]: BhpcyEszlglv09.043.145S / / [id number] Implanted:Qty: 1 on 09/24/2024 by Sandrine Field [facility]: [id number] / / [id number] Implanted:Qty: 1 on 09/24/2024 by Sandrine Field [facility]: [id number] / / [id number] Implanted:Qty: 1 on 09/24/2024 by Sandrine Field MD [facility]: [id number] / / [id number] Implanted:Qty: 1 on 09/24/2024 by Sandrine Field [facility]: [id number] / / [id number] Insurance Advance Directives * Full Code (Latest Code Status on File) Date ActivatedDate InactivatedComments10/08/2024 7:17 AM10/11/2024 4:47 PM * Full Code Date ActivatedDate InactivatedComments09/23/2024 1:50 PM09/28/2024 8:43 PM Care Teams Team MemberRelationshipSpecialtyStart DateEnd Caden Mendez MD [address] [facility] [place] [address] PCP - General09/23/24 Christiano Geiger MD [address] [facility] [address] [address] 10/11/24 Trey Vallejo DPM Address: [address] [place] [address] [place] [address] Podiatr10/11/24
--- OUTSIDE RECORDS SUMMARY | 2025-07-18 11:38 | XMS_ITS | Patient Health Record ---
Author Organization [facility] in [place] Address [address] [place] [address] Care Team Providers Care Automobile Seat Cover Installer Name Role Phone Kareem Mendez Primary Care Provider [phone] Clarisa Vallejo [phone] Allergies Allergen (clinical drug ingredient) Drug/Non Drug Allergy documented on EMR Reaction Allergy Type Onset Date Status hydrocodone Hydrocodone hives Drug Allergy ActivefentanylFentanylhivesDrug AllergyActive Results Component Value Reference Range Notes CBC AUTO DIFF Reviewed date:04/24/2025 08:22:26 PM Interpretation: Performing Lab: Notes/Report: [facility] , White Blood Count 7.6 4.0-11.0 10 3/uL Red Blood Count4.834.70-6.10 10 6/zBEvecariftf18.514.0-18.0 g/lJMzkgjknayc78.3 42.0-54.0 %Mean Corpuscular Omwppc07.680.0-94.0 fLMean Corpuscular Hemoglobin 30.025.9-34.0 pgMean Corpuscular HGB Conc33.529.9-35.2 g/dLRed Cell Distribution Width15.311.0-15.0 %Platelet Wwnuy761303-856 10 3/uLMean Platelet Volume9.99.5- 13.5 fLNeutrophils Percent Auto74.543.0-75.0 %Lymphocytes Percent Auto13.120.5- 60.0 %Monocytes Percent Auto8.91.7-12.0 %Eosinophils Percent Auto1.30.9-7.0 % Basophils Percent Auto1.10.2-2.0 %Immature Granulocytes Pct Auto1.10.0-0.5 % Neutrophils Absolute Auto5.61.4-6.5 10 3/uLLymphocytes Absolute Auto1.01.2-3.8 10 3/uLMonocytes Absolute Auto0.70.3-0.8 10 3/uLEosinophils Absolute Auto0.10.0- 0.7 10 3/uLBasophils Absolute Auto0.10.0-0.1 10 3/uLImmature Granulocytes Abs Auto0.080.00-0.03 10 3/uLPerforming Lab:see note - [facility] LB PROF 14(COMP METB) Reviewed date:04/24/2025 08:22:26 PM Interpretation: Performing Lab: Notes/Report: [facility] ,Ykkcec213390-870 mmol/LPotassium3.83.5-5.1 mmol/FCmeuarzc31630-803 mmol/LCarbon Dweclag21.321.0-32.0 mmol/LAnion Gap7.2Ciccagq23055-146 mg/dLBlood Urea Nitrogen 11.07.0-18.0 mg/dLCreatinine0.950.70-1.30 mg/dLEstimated GFR ( Elizabeth>60 >=60 mL/min/1.73m 2Estimated GFR (Non- Gwen>60>=60 mL/min/1.73m 2BUN Creatinine Ratio11.0Cyysfjr8.28.5-10.1 mg/dLBilirubin Total0.40.2-1.0 mg/dL Aspartate Amino Jrpvydlxkxo2062-91 U/LAlanine Zkkwshszcqsctijb1539-29 U/L Alkaline Zzkhadvjhlx17814-093 U/LTotal Protein7.96.4-8.2 g/dLAlbumin Level3.5 3.4-5.0 g/dLGlobulin4.4Albumin Globulin Ratio0.8Performing Lab:see noteML - [facility] LBGLYCOHEMOGLOBIN A1C Reviewed date:08/05/2024 10:32:26 AM Interpretation: Performing Lab: Notes/Report: [facility] ,Glycohemoglobin A1C6.34.5-6.2 % ADA RECOMMENDED LIMIT 4.0 - 6.0 ADA THERAPEUTIC TARGET < 7.0 ACTION SUGGESTED > 7.0 Estimated Average Nkylfnz555Gsxdjzujsp Lab:see noteML - [facility] LB CBC AUTO DIFF Reviewed date:08/29/2024 12:27:30 PM Interpretation: Performing Lab: Notes/Report: [facility] ,White Blood Count9.14.0-11.0 10 3/uLRed Blood Count5.894.70-6.10 10 6/uL Wdcaumhmwz03.014.0-18.0 g/kHKdrbqfbvku31.242.0-54.0 %Mean Corpuscular Hpfkkw26.2 80.0-94.0 fLMean Corpuscular Mcmyjccxnr15.225.9-34.0 pgMean Corpuscular HGB Conc 31.929.9-35.2 g/dLRed Cell Distribution Width15.611.0-15.0 %Platelet Smlcm141 150-450 10 3/uLMean Platelet Volume9.29.5-13.5 fLNeutrophils Percent Auto77.5 43.0-75.0 %Lymphocytes Percent Auto11.520.5-60.0 %Monocytes Percent Auto7.51.7- 12.0 %Eosinophils Percent Auto1.30.9-7.0 %Basophils Percent Auto0.90.2-2.0 % Immature Granulocytes Pct Auto1.30.0-0.5 %Neutrophils Absolute Auto7.01.4-6.5 10 3/uLLymphocytes Absolute Auto1.01.2-3.8 10 3/uLMonocytes Absolute Auto0.70.3-0.8 10 3/uLEosinophils Absolute Auto0.10.0-0.7 10 3/uLBasophils Absolute Auto0.10.0- 0.1 10 3/uLImmature Granulocytes Abs Auto0.120.00-0.03 10 3/uLPerforming Lab:see noteML - [facility] LBCRP Reviewed date:08/29/2024 12:27:30 PM Interpretation: Performing Lab: Notes/Report: [facility] ,C Reactive Protein0.54<=0.50 mg/dLPerforming Lab:see noteML - [facility] LBPROF CHEM 8 (BAS METB) Reviewed date:08/29/2024 12:27:30 PM Interpretation: Performing Lab: Notes/Report: [facility] ,Keqqib075178-760 mmol/LPotassium4.43.5-5.1 mmol/ZEucpzxse72881-390 mmol/LCarbon Bbbhktz78.221.0-32.0 mmol/LAnion Gap9.3Ezocvhb31562-984 mg/dLBlood Urea Nitrogen 13.07.0-18.0 mg/dLCreatinine1.120.70-1.30 mg/dLEstimated GFR ( Elizabeth>60 >=60 mL/min/1.73m 2Estimated GFR (Non- Gwen>60>=60 mL/min/1.73m 2BUN Creatinine Ratio11.8Toubxad2.28.5-10.1 mg/dLPerforming Lab:see noteML - [facility] LBErythrocyte Sedimentation Rate Reviewed date:08/29/2024 12:27:30 PM Interpretation: Performing Lab: Notes/Report: [facility] ,Erythrocyte Sedimentation Rate51<=20 mm/hrPerforming Lab:see noteML - [facility] LBCBC AUTO DIFF Reviewed date:08/29/2024 12:27:30 PM Interpretation: Performing Lab: Notes/Report: [facility] ,White Blood Count11.34.0-11.0 10 3/uLRed Blood Count5.734.70-6.10 10 6/uL Vouwdqiqml66.414.0-18.0 g/bCNdisosaziz40.542.0-54.0 %Mean Corpuscular Wtylyu56.6 80.0-94.0 fLMean Corpuscular Gxouizzcia91.925.9-34.0 pgMean Corpuscular HGB Conc 31.829.9-35.2 g/dLRed Cell Distribution Width15.311.0-15.0 %Platelet Mmhan169 150-450 10 3/uLMean Platelet Volume9.29.5-13.5 fLNeutrophils Percent Auto83.2 43.0-75.0 %Lymphocytes Percent Auto6.920.5-60.0 %Monocytes Percent Auto7.71.7- 12.0 %Eosinophils Percent Auto1.10.9-7.0 %Basophils Percent Auto0.50.2-2.0 % Immature Granulocytes Pct Auto0.60.0-0.5 %Neutrophils Absolute Auto9.41.4-6.5 10 3/uLLymphocytes Absolute Auto0.81.2-3.8 10 3/uLMonocytes Absolute Auto0.90.3-0.8 10 3/uLEosinophils Absolute Auto0.10.0-0.7 10 3/uLBasophils Absolute Auto0.10.0- 0.1 10 3/uLImmature Granulocytes Abs Auto0.070.00-0.03 10 3/uLPerforming Lab:see noteML - [facility] LBLACTATE or LACTIC ACID Reviewed date:08/29/2024 12:27:30 PM Interpretation: Performing Lab: Notes/Report: [facility] ,Lactate/Lactic Acid2.10.4-2.0 mmol/L RESULTS CALLED TO GUI LIANG RN @BY Supriya Nunes at 0508 Performing Lab:see noteML - [facility] LBPROF 14(COMP METB) Reviewed date:08/29/2024 12:27:30 PM Interpretation: Performing Lab: Notes/Report: [facility] ,Yumngx556824-780 mmol/LPotassium3.43.5-5.1 mmol/ZAodiyxtg61996-444 mmol/LCarbon Sheopmh39.621.0-32.0 mmol/LAnion Gap11.0Ememped8515-413 mg/dLBlood Urea Nitrogen 13.07.0-18.0 mg/dLCreatinine1.400.70-1.30 mg/dLEstimated GFR ( Elizabeth>60 >=60 mL/min/1.73m 2Estimated GFR (Non- Ame53>=60 mL/min/1.73m 2BUN Creatinine Ratio9.3Xmctzyn5.98.5-10.1 mg/dLBilirubin Total0.70.2-1.0 mg/dL Aspartate Amino Mcxyaybtwgz0191-72 U/LAlanine Ahjtuzlfxoiqmkak9628-17 U/L Alkaline Gurdiomlglq67092-279 U/LTotal Protein8.06.4-8.2 g/dLAlbumin Level3.7 3.4-5.0 g/dLGlobulin4.3Albumin Globulin Ratio0.9Performing Lab:see noteML - [facility] LBECG 12 lead Reviewed date:08/29/2024 12:27:30 PM Interpretation: Performing Lab: Notes/Report: Source Facility: [facility]-[address] [place] [address] [place] [address] Electrocardiograph Report Signed Patient: MATTY GARCES MR#: [id number] : 1970 Acct:[id number] Age/Sex: 53 / M ADM Date: 08/29/24 Loc: ER Attending Dr: Ordering Physician: Sukhdev Amaral Date of Service: 08/29/24 Procedure(s): ECG 12 lead Accession Number(s): [id number] cc: [facility] Test Date: 2024-08-29 Pat Name: MATTY GARCES Department: Room: - Gender: Male Yarn Packer: : 1970 Requested By: VENUS MENDEZ Order Number: [id number] Reading MD: VENUS MENDEZ Measurements Intervals [place] Rate: 99 P: 58 MA: 168 QRS: 54 QRSD: 90 T: 30 [...] Signed By: 08/29/24 0659 DD/ 0500 TD/TT: Train Engineer:US venous doppler LOYD PIERSON Reviewed date:09/19/2024 07:12:29 PM Interpretation: Performing Lab: Notes/Report: Source Facility: [facility]-[address] [place] [address] [place] [address] Ultrasound Report Signed Patient: MATTY GARCES MR#: [id number] : 1970 Acct:[id number] Age/Sex: 53 / M ADM Date: 08/30/24 Loc: Attending Dr: Brayden Gooden Ordering Physician: Brayden Gooden Date of Service: 08/30/24 Procedure(s): US venous doppler LE LT Accession Number(s): [id number] cc: Venus Mendez M.D.; Brayden Gooden [place] [id number] Patient Name: MATTY GARCES MRN: [id number]:[id number] date: 1970 Sex: M Assigned Patient Location: Current Patient Location: Accession/Order Number: [id number] Exam Date: 08/30/2024 15:36 Report Date: 08/30/2024 [...] Signed By: 08/30/24 1633 DD/ 1631 TD/TT: Train Engineer:CBC AUTO DIFF Reviewed date:09/19/2024 07:12:29 PM Interpretation: Performing Lab: Notes/Report: [facility] ,White Blood Count7.64.0-11.0 10 3/uLRed Blood Count5.224.70-6.10 10 6/uL Wmclrvngil67.014.0-18.0 g/lSQndkrdrlyn59.642.0-54.0 %Mean Corpuscular Pzffqq79.4 80.0-94.0 fLMean Corpuscular Wjswnwmeyf58.825.9-34.0 pgMean Corpuscular HGB Conc 31.429.9-35.2 g/dLRed Cell Distribution Width15.111.0-15.0 %Platelet Rlyjt618 150-450 10 3/uLMean Platelet Volume9.89.5-13.5 fLPerforming Lab:see note - [facility] LBBlood Culture 1 Reviewed date:09/25/2024 08:20:56 PM Interpretation: Performing Lab: Notes/Report: [facility] ,Blood Culture 1See Below For Report Blood Culture 1 NG5D NO GROWTH AT 5 DAYS. Performing Lab:see note - [facility] LBBlood Culture 2 Reviewed date:09/25/2024 08:20:56 PM Interpretation: Performing Lab: Notes/Report: [facility] ,Blood Culture 2See Below For Report Blood Culture 2 NG5D NO GROWTH AT 5 DAYS. Performing Lab:see [facility] LBErythrocyte Sedimentation Rate Reviewed date:09/19/2024 07:12:29 PM Interpretation: Performing Lab: Notes/Report: [facility] ,Erythrocyte Sedimentation Rate51<=20 mm/hrPerforming Lab:[facility] LBManual Differential Reviewed date:09/19/2024 07:12:29 PM Interpretation: Performing Lab: Notes/Report: [facility] ,Segmented Neutrophils % Bepryq15.043.0-75.0Lymphocytes Percent Manual6.020.5- 60.0 %Monocytes Percent Manual4.01.7-12.0 %Eosinophils Percent Manual3.00.9-7.0 %Basophils Percent Manual1.00.2-2.0 %Atypical Lymphocytes % Manual9.0Segmented Neut Absolute Manual5.851.4-6.5 10 3/uLLymphocytes Absolute Manual0.451.20-3.80 10 3/uLMonocytes Absolute Manual0.300.30-0.80 10 3/uLEosinophils Absolute Manual 0.220.00-0.70 10 3/uLBasophils Abs Manual0.070.00-0.10 10 3/uLAtypical Lymphocytes Abs Man0.68Performing Lab:see note - [facility] LBUS venous doppler LE BI Reviewed date:09/20/2024 07:18:09 PM Interpretation: Performing Lab: Notes/Report: Source Facility: [place] [address] [place] [address] Ultrasound Report Signed Patient: MATTY GARCES MR#: [id number] : 1970 Acct:[id number] Age/Sex: 53 / M ADM Date: 09/19/24 Loc: ER Attending Dr: Ordering Physician: Veronique Garrett Date of Service: 09/19/24 Procedure(s): US venous doppler LE LT Accession Number(s): [id number] cc: Venus Mendez M.D.; Veronique Garrett [place] [address] Patient Name: MATTY GARCES MRN: [id number] date: 1970 Sex: M Assigned Patient Location: ER Current Patient Location: ER Accession/Order Number: [id number] Exam Date: 09/19/2024 19:20 Report Date: 09/19/2024 [...] M.D. Signed By: 09/19/242049 DD/ 46 TD/TT: Train Engineer:BLOOD GASES BTY Reviewed date:09/20/2024 07:18:09 PM Interpretation: Performing Lab: Notes/Report: [facility] ,pH ABG7.3537.350-7.450ABG WFN390.035.0-45.0 mmHgRESULTS CALLED TO ALEXIS MARTE,RNPO2 ABG91.680.0-100.0 mmHgHCO3 ABG34.422.0-26.0 mmol/LBase Excess ABG 8.9-2.0-2.0 mmol/LOxygen Saturation ABG97.9Allen TestPOSITIVEPOSITIVEO2 Mode BIPAPFractionated Inspired Xkbwaf92Pmokpzmg SiteLRBIPAP Fqdwrwzx65/78Fmec23 Performing Lab:see note - [facility] LBBNP Reviewed date:09/20/2024 07:18:09 PM Interpretation: Performing Lab: Notes/Report: [facility] ,NT Pro B Type Natriuretic Cuev389.0<=900.0 pg/mLPerforming Lab:see noteGerman [facility] LBTroponin I High Sensitivity Reviewed date:09/20/2024 07:18:09 PM Interpretation: Performing Lab: Notes/Report: [facility] ,Troponin I High Sensitivity6.24.0-76.1 pg/mL CUT-OFF POINTS HAVE BEEN ESTABLISHED BASED ON THE FOURTH UNIVERSAL DEFINITION OF MYOCARDIAL INFARCTION. THE UPPER REFERENCE LIMIT (URL) OF TROPONIN, DEFINED THE 99TH PERCENTILE OF cTnI DISTRIBUTION IN A REFERENCE POPULATION, HAS BEEN CONFIRMED THE DECISION THRESHOLD FOR CA DIAGNOSIS. 99TH PERCENTILE = 76.2 PG/ML NOTE: HIGH-SENSITIVITY TROPONIN ASSAY IS NOT INTENDED TO BE USED IN ISOLATION BUT SHOULD BE INTERPRETED IN CONJUNCTION WITH OTHER DIAGNOSTIC AND CLINICAL INFORMATION. Performing Lab:[facility] LBECG 12 lead Reviewed date:09/21/2024 09:07:03 PM Interpretation: Performing Lab: Notes/Report: Source Facility: [facility]-[address] [place] [address] Electrocardiograph Report Signed Patient: MATTY GARCES MR#: [id number] : 1970 Acct:[id number] Age/Sex: 53 / M ADM Date: 09/19/24 Loc: ICU 270-[address]: Venus Mendez M.D. Ordering Physician: Venus Mendez M.D. Date of Service: 09/20/24 Procedure(s): ECG 12 lead Accession Number(s): [id number] cc: [facility] Test Date: 2024-09-20 Pat Name: MATTY GARCES Department: Room: [facility] Gender: Male Yarn Packer: : 1970 Requested By: VENUS MENDEZ Order Number: [id number] Reading MD: KENNETH ROWE Measurements Intervals [place] Rate: 67 P: 54 MA: 186 QRS: 62 QRSD: 94 T: 31 QT: 394 QTc: 409 Interpretive Statements [address]/T wave changes Electronically Signed On 09-21-2024 20:51:20 EST by KENNETH ROWE Dictated By: Kenneth Rowe D.O. Signed By: 09/21/242050 DD/ 04 TD/TT: Train Engineer:CT angio chest Reviewed date:09/20/2024 07:18:09 PM Interpretation: Performing Lab: Notes/Report: Source Facility: [place] [address] CT Scan Report Signed Patient: MATTY GARCES MR#: [id number] : 1970 Acct:[id number] Age/Sex: 53 / M ADM Date: 09/19/24 Loc: ICU [facility] Attending Dr: Venus Mendez M.D. Ordering Physician: Venus Mendez M.D. Date of Service: 09/20/24 Procedure(s): CT angio chest Accession Number(s): [id number] cc: Venus Mendez M.D. [place] [address] Patient Name: MATTY GARCES MRN: [id number] date: 1970 Sex: M Assigned Patient Location: ICU Current Patient Location: ICU Accession/Order Number: [id number] Exam Date: 09/20/2024 13:15 Report Date: 09/20/2024 [...] Signed By: 09/20/24 1418 DD/ 1415 TD/TT: Train Engineer:Troponin I High Sensitivity Reviewed date:09/20/2024 07:18:09 PM Interpretation: Performing Lab: Notes/Report: [facility] ,Troponin I High Sensitivity7.24.0-76.1 pg/mL CUT-OFF POINTS HAVE BEEN ESTABLISHED BASED ON THE FOURTH UNIVERSAL DEFINITION OF MYOCARDIAL INFARCTION. THE UPPER REFERENCE LIMIT (URL) OF TROPONIN, DEFINED THE 99TH PERCENTILE OF cTnI DISTRIBUTION IN A REFERENCE POPULATION, HAS BEEN CONFIRMED THE DECISION THRESHOLD FOR CA DIAGNOSIS. 99TH PERCENTILE = 76.2 PG/ML NOTE: HIGH-SENSITIVITY TROPONIN ASSAY IS NOT INTENDED TO BE USED IN ISOLATION BUT SHOULD BE INTERPRETED IN CONJUNCTION WITH OTHER DIAGNOSTIC AND CLINICAL INFORMATION. Performing Lab:see noteML - [facility] LBXR foot LT min 3V Reviewed date:09/21/2024 09:07:03 PM Interpretation: Performing Lab: Notes/Report: Source Facility: [facility]-[address] [place] [address] [place] [address] XRay Report Signed Patient: MATTY GARCES MR#: [id number] : 1970 Acct:[id number] Age/Sex: 53 / M ADM Date: 09/19/24 Loc: ICU 270-[address]: Venus Mendez M.D. Ordering Physician: Clarisa Vallejo D.P.M. Date of Service: 09/20/24 Procedure(s): XR foot LT min 3V Accession Number(s): [id number] cc: Clarisa Vallejo D.P.M.; Venus Mendez M.D. [place] [id number] Patient Name: MATTY GARCES MRN: [id number] date: 1970 Sex: M Assigned Patient Location: ICU Current Patient Location: ICU Accession/Order Number: [id number] Exam Date: 09/20/2024 20:45 Report Date: 09/20/2024 [...] M.D. Signed By: 09/20/242144 DD/ 42 TD/TT: Train Engineer:XR ankle LT min 3V Reviewed date:09/21/2024 09:07:03 PM Interpretation: Performing Lab: Notes/Report: Source Facility: [place] [address] XRay Report Signed Patient: MATTY GARCES MR#: [id number] : 1970 Acct:[id number] Age/Sex: 53 / M ADM Date: 09/19/24 Loc: ICU 270-[address]: Venus Mendez M.D. Ordering Physician: Clarisa Vallejo D.P.M. Date of Service: 09/20/24 Procedure(s): XR ankle LT min 3V Accession Number(s): [id number] cc: Clarisa Vallejo D.P.M.; Venus Mendez M.D. [place] [address] Patient Name: MATTY GARCES MRN: [facility]:[id number] date: 1970 Sex: M Assigned Patient Location: ICU Current Patient Location: ICU Accession/Order Number: [id number] Exam Date: 09/20/2024 20:45 Report Date: 09/20/2024 [...] M.D. Signed By: 09/20/242144 DD/ 42 TD/TT: Train Engineer:BLOOD GASES BTY Reviewed date:09/21/2024 08:35:02 AM Interpretation: Performing Lab: Notes/Report: [facility] ,pH ABG7.4197.350-7.450ABG WCW589.635.0-45.0 mmHgRESULTS CALLED TO GLENDY JAMES RN at 4864XF0 ABG71.380.0-100.0 mmHgHCO3 YPT6116.0-26.0 mmol/LBase Excess ABG11.5-2.0-2.0 mmol/LOxygen Saturation ABG95.4Allen TestPOSITIVEPOSITIVE O2 ModeNASAL CANNULALiters per Cijrof8Nouvkuli SiteRRPerforming Lab:see noteML - [facility] LBCBC AUTO DIFF Reviewed date:09/21/2024 01:02:57 PM Interpretation: Performing Lab: Notes/Report: [facility] ,White Blood Count7.54.0-11.0 10 3/uLRed Blood Count5.234.70-6.10 10 6/uL Flfteqvjtj93.214.0-18.0 g/tACgieuuyrvw03.042.0-54.0 %Mean Corpuscular Mrxvhs79.0 80.0-94.0 fLMean Corpuscular Hkuvlmsrlj29.225.9-34.0 pgMean Corpuscular HGB Conc 30.929.9-35.2 g/dLRed Cell Distribution Width15.311.0-15.0 %Platelet Escui238 150-450 10 3/uLMean Platelet Gswvam75.09.5-13.5 fLNeutrophils Percent Auto76.9 43.0-75.0 %Lymphocytes Percent Auto9.620.5-60.0 %Monocytes Percent Auto10.31.7- 12.0 %Eosinophils Percent Auto1.50.9-7.0 %Basophils Percent Auto0.50.2-2.0 % Immature Granulocytes Pct Auto1.20.0-0.5 %Neutrophils Absolute Auto5.81.4-6.5 10 3/uLLymphocytes Absolute Auto0.71.2-3.8 10 3/uLMonocytes Absolute Auto0.80.3-0.8 10 3/uLEosinophils Absolute Auto0.10.0-0.7 10 3/uLBasophils Absolute Auto0.00.0- 0.1 10 3/uLImmature Granulocytes Abs Auto0.090.00-0.03 10 3/uLPerforming Lab:see noteML - [facility] LBCRP Reviewed date:09/21/2024 01:02:57 PM Interpretation: Performing Lab: Notes/Report: [facility] ,C Reactive Protein1.65<=0.50 mg/dLPerforming Lab:see noteML - [facility] LBPROF CHEM 8 (BAS METB) Reviewed date:09/21/2024 01:02:57 PM Interpretation: Performing Lab: Notes/Report: [facility] ,Tpisqw894022-426 mmol/LPotassium3.63.5-5.1 mmol/HMcehfzox52451-283 mmol/LCarbon Vsebocf95.821.0-32.0 mmol/LAnion Gap5.2Nywuqfl05002-315 mg/dLBlood Urea Nitrogen 6.07.0-18.0 mg/dLCreatinine1.210.70-1.30 mg/dLEstimated GFR ( [place]>60 >=60 mL/min/1.73m 2Estimated GFR (Non- Gwen>60>=60 mL/min/1.73m 2BUN Creatinine Ratio5.7Tdjqrwx1.88.5-10.1 mg/dLPerforming Lab:see note - [facility] LBBox Test Reviewed date:09/24/2024 05:28:36 PM Interpretation: Performing Lab: Notes/Report: WOUND CULTURE L GREAT TOE [facility] ,BOX Test Sent OutWOUND CULTUREBOX Test Reference LabFIRELANDSBOX Test Date Sent 09/21/24BOX Test ResultSEE SCANNED REPORTPerforming Lab:see note - [facility] LBCBC AUTO DIFF Reviewed date:09/24/2024 10:37:52 AM Interpretation: Performing Lab: Notes/Report: [facility] ,White Blood Count7.14.0-11.0 10 3/uLRed Blood Count5.404.70-6.10 10 6/uL Oxcfatmdrg71.514.0-18.0 g/yABqmvflaoaj00.242.0-54.0 %Mean Corpuscular Whadeo02.4 80.0-94.0 fLMean Corpuscular Jwfrtnapao81.925.9-34.0 pgMean Corpuscular HGB Conc 30.729.9-35.2 g/dLRed Cell Distribution Width15.611.0-15.0 %Platelet Najon139 150-450 10 3/uLMean Platelet Volume9.69.5-13.5 fLPerforming Lab:see noteGerman [facility] LBPROF CHEM 8 (BAS METB) Reviewed date:09/24/2024 10:37:52 AM Interpretation: Performing Lab: Notes/Report: [facility] ,Ffjmhr767451-632 mmol/LPotassium3.83.5-5.1 mmol/FTujtidfk74265-728 mmol/LCarbon Azaeujx79.021.0-32.0 mmol/LAnion Gap10.5Kxzsjkc68632-481 mg/dLBlood Urea Nitrogen5.07.0-18.0 mg/dLCreatinine1.160.70-1.30 mg/dLEstimated GFR ( [place]>60>=60 mL/min/1.73m 2Estimated GFR (Non- Gwen>60>=60 mL/min/1.73m 2BUN Creatinine Ratio4.1Locsexd9.08.5-10.1 mg/dLPerforming Lab:see noteML - [facility] LBPTT Reviewed date:09/24/2024 10:37:52 AM Interpretation: Performing Lab: Notes/Report: [facility] ,Partial Thromboplastin Time28.722.3-36.2 secPerforming Lab:see note - [facility] LBProthrombin Time INR Reviewed date:09/24/2024 10:37:52 AM Interpretation: Performing Lab: Notes/Report: [facility] ,Prothrombin Time12.99.0-11.6 secINR1.24 DESIRED INR: 2.0-3.0 CONDITIONS NOT LISTED BELOW 2.5-3.5 FOR PROSTHETIC HEART VALVE REPLACEMENT 2.5-3.5 RECURRENT THROMBOSIS Performing Lab:see noteML - [facility] LBManual Differential Reviewed date:09/24/2024 10:37:52 AM Interpretation: Performing Lab: Notes/Report: [facility] ,Segmented Neutrophils % Udgecs43.043.0-75.0Lymphocytes Percent Bxwkez89.020.5- 60.0 %Monocytes Percent Manual9.01.7-12.0 %Eosinophils Percent Manual3.00.9-7.0 %Basophils Percent Manual1.00.2-2.0 %Segmented Neut Absolute Manual5.391.4-6.5 10 3/uLLymphocytes Absolute Manual0.781.20-3.80 10 3/uLMonocytes Absolute Manual 0.630.30-0.80 10 3/uLEosinophils Absolute Manual0.210.00-0.70 10 3/uLBasophils Abs Manual0.070.00-0.10 10 3/uLPerforming Lab:see noteML - [facility] LBTroponin I High Sensitivity Reviewed date:09/24/2024 10:37:52 AM Interpretation: Performing Lab: Notes/Report: [facility] ,Troponin I High Naoqdozoesk85.04.0-76.1 pg/mL CUT-OFF POINTS HAVE BEEN ESTABLISHED BASED ON THE FOURTH UNIVERSAL DEFINITION OF MYOCARDIAL INFARCTION. THE UPPER REFERENCE LIMIT (URL) OF TROPONIN, DEFINED THE 99TH PERCENTILE OF cTnI DISTRIBUTION IN A REFERENCE POPULATION, HAS BEEN CONFIRMED THE DECISION THRESHOLD FOR CA DIAGNOSIS. 99TH PERCENTILE = 76.2 PG/ML NOTE: HIGH-SENSITIVITY TROPONIN ASSAY IS NOT INTENDED TO BE USED IN ISOLATION BUT SHOULD BE INTERPRETED IN CONJUNCTION WITH OTHER DIAGNOSTIC AND CLINICAL INFORMATION. Performing Lab:see noteML - [facility] LBXR KNEE RT 3V Reviewed date:09/24/2024 10:37:52 AM Interpretation: Performing Lab: Notes/Report: Source Facility: [place] [address] [place] [address] XRay Report Signed Patient: MATTY GARCES MR#: [id number] : 1970 Acct:[id number] Age/Sex: 53 / M ADM Date: 09/23/24 Loc: ER Attending Dr: Ordering Physician: Kaylin Glass Date of Service: 09/23/24 Procedure(s): XR knee RT 3V Accession Number(s): [id number] cc: Venus Mendez M.D.; Kaylin Glass [place] [address] Patient Name: MATTY GARCES MRN: [id number] date: 1970 Sex: M Assigned Patient Location: ER Current Patient Location: ER Accession/Order Number: [id number] Exam Date: 09/23/2024 05:40 Report Date: 09/23/2024 [...] Davis M.D. Signed By: 09/23/24 0637 DD/ TD/TT: Train Engineer:XR ankle RT min 3V Reviewed date:09/24/2024 10:37:52 AM Interpretation: Performing Lab: Notes/Report: Source Facility: [place] [address] XRay Report Signed Patient: MATTY GARCES MR#: [id number] : 1970 Acct:[id number] Age/Sex: 53 / M ADM Date: 09/23/24 Loc: ER Attending Dr: Ordering Physician: Kaylin Glass Date of Service: 09/23/24 Procedure(s): XR ankle RT min 3V Accession Number(s): [id number] cc: Venus Mendez M.D.; Kaylin Glass [place] [address] Patient Name: MATTY GARCES MRN: [id number] date: 1970 Sex: M Assigned Patient Location: ER Current Patient Location: ER Accession/Order Number: [id number] Exam Date: 09/23/2024 05:40 Report Date: 09/23/2024 [...] Davis M.D. 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 Signed By: 09/25/24 0809 DD/ 0551 TD/TT: Train Engineer:XR chest 1V Reviewed date:09/24/2024 10:37:52 AM Interpretation: Performing Lab: Notes/Report: Source Facility: [place] [address] XRay Report Signed Patient: MATTY GARCES MR#: [id number] : 1970 Acct:[id number] Age/Sex: 53 / M ADM Date: 09/23/24 Loc: ER Attending Dr: Ordering Physician: Kaylin Glass Date of Service: 09/23/24 Procedure(s): XR chest 1V Accession Number(s): [id number] cc: Venus Mendez M.D.; Kaylin Glass [place] [address] Patient Name: MATTY GARCES MRN: [id number] date: 1970 Sex: M Assigned Patient Location: ER Current Patient Location: ER Accession/Order Number: [id number] Exam Date: 09/23/2024 05:40 Report Date: 09/23/2024 [...] Altaf Davis M.D. Signed By: 09/23/2438 DD/ TD/TT: Train Engineer:XR tibia fibula RT 2V Reviewed date:09/24/2024 10:37:52 AM Interpretation: Performing Lab: Notes/Report: Source Facility: [place] [address] XRay Report Signed Patient: MATTY GARCES MR#: [id number] : 1970 Acct:[id number] Age/Sex: 53 / M ADM Date: 09/23/24 Loc: ER Attending Dr: Ordering Physician: Kaylin Glass Date of Service: 09/23/24 Procedure(s): XR tibia fibula RT 2V Accession Number(s): [id number] cc: Venus Mendez M.D.; Kaylin Glass [place] [address] Patient Name: MATTY GARCES MRN: [id number] date: 1970 Sex: M Assigned Patient Location: ER Current Patient Location: ER Accession/Order Number: [id number] Exam Date: 09/23/2024 05:40 Report Date: 09/23/2024 [...] M.D. Signed By: 09/23/2438 DD/ 4 TD/TT: Train Engineer:XR tibia fibula RT 2V Reviewed date:09/24/2024 10:37:52 AM Interpretation: Performing Lab: Notes/Report: Source Facility: [place] [address] XRay Report Signed Patient: MATTY GARCES MR#: [id number] : 1970 Acct:[id number] Age/Sex: 53 / M ADM Date: 09/23/24 Loc: ER Attending Dr: Ordering Physician: Kaylin Glass Date of Service: 09/23/24 Procedure(s): XR tibia fibula RT 2V Accession Number(s): [id number] cc: Venus Mendez M.D.; Kaylin Glass [place] [address] Patient Name: MATTY GARCES MRN: [id number] date: 1970 Sex: M Assigned Patient Location: ER Current Patient Location: ED.MAIN Accession/Order Number: [id number] Exam Date: 09/23/2024 06:48 Report Date: 09/23/2024 [...] Michael Casanova M.D. Signed By: 09/23/2425 DD/ TD/TT: Train Engineer:CBC AUTO DIFF Reviewed date:10/05/2024 06:15:03 PM Interpretation: Performing Lab: Notes/Report: [facility] ,White Blood Count9.14.0-11.0 10 3/uLRed Blood Count4.634.70-6.10 10 6/uL Kjjydfyjqz27.514.0-18.0 g/lSEfpoiguqnt60.042.0-54.0 %Mean Corpuscular Yumxov92.4 80.0-94.0 fLMean Corpuscular Appgfevimt90.025.9-34.0 pgMean Corpuscular HGB Conc 31.329.9-35.2 g/dLRed Cell Distribution Width15.311.0-15.0 %Platelet Irehy912 150-450 10 3/uLMean Platelet Volume9.29.5-13.5 fLNeutrophils Percent Auto77.2 43.0-75.0 %Lymphocytes Percent Auto9.820.5-60.0 %Monocytes Percent Auto7.71.7- 12.0 %Eosinophils Percent Auto2.20.9-7.0 %Basophils Percent Auto0.80.2-2.0 % Immature Granulocytes Pct Auto2.30.0-0.5 %Neutrophils Absolute Auto7.01.4-6.5 10 3/uLLymphocytes Absolute Auto0.91.2-3.8 10 3/uLMonocytes Absolute Auto0.70.3-0.8 10 3/uLEosinophils Absolute Auto0.20.0-0.7 10 3/uLBasophils Absolute Auto0.10.0- 0.1 10 3/uLImmature Granulocytes Abs Auto0.210.00-0.03 10 3/uLPerforming Lab:see noteML - [facility] LBPROF 14(COMP METB) Reviewed date:10/05/2024 06:15:03 PM Interpretation: Performing Lab: Notes/Report: [facility] ,Xgskuc977141-313 mmol/LPotassium3.73.5-5.1 mmol/MAwuuhiey4677-805 mmol/LCarbon Gpkopfd09.821.0-32.0 mmol/LAnion Gap5.7Hnsvplb3252-191 mg/dLBlood Urea Nitrogen 9.07.0-18.0 mg/dLCreatinine1.080.70-1.30 mg/dLEstimated GFR ( Elizabeth>60 >=60 mL/min/1.73m 2Estimated GFR (Non- Gwen>60>=60 mL/min/1.73m 2BUN Creatinine Ratio8.7Uzdpjpo6.68.5-10.1 mg/dLBilirubin Total0.70.2-1.0 mg/dL Aspartate Amino Hgmvdrxqhmr4898-27 U/LAlanine Omlwsvbrohhvudom2686-33 U/L Alkaline Ruysxffdzch89219-168 U/LTotal Protein7.66.4-8.2 g/dLAlbumin Level3.2 3.4-5.0 g/dLGlobulin4.4Albumin Globulin Ratio0.7Performing Lab:see noteML - [facility] LBBLOOD CULTURE ID PANEL Reviewed date:03/07/2025 09:35:46 PM Interpretation: Performing Lab: Notes/Report: [facility] ,CTX-MNOT APPLICABLENOT DETECTEIMPNOT APPLICABLENOT DETECTEKPCNOT APPLICABLENOT DETECTEmcr-1NOT APPLICABLENOT DETECTEmecA/CNOT APPLICABLENOT DETECTEmecA/C and MREJ (MRSA)NOT APPLICABLENOT DETECTENDMNOT APPLICABLENOT NZPXDXUZXP-98-ceuvOON APPLICABLENOT DETECTEvanA/BNOT APPLICABLENOT DETECTEVIMNOT APPLICABLENOT DETECTE SourceBloodEnterococcus [...] neoformans/gattiiNOT DETECTEDNOT DETECTE Performing Lab:see noteML - [facility] LBCT ANKLE RT WO CON Reviewed date:04/11/2025 11:11:49 PM Interpretation: Performing Lab: Notes/Report: Source Facility: [place] [address] CT Scan Report Signed Patient: MATTY GARCES MR#: [id number] : 1970 Acct:[id number] Age/Sex: 54 / M ADM Date: 04/10/25 Loc: CT Attending Dr: Venus Mendez M.D. Ordering Physician: Venus Mendez M.D. Date of Service: 04/10/25 Procedure(s): CT ankle RT wo con Accession Number(s): [id number] cc: Venus Mendez M.D. [place] [address] Patient Name: MATTY GARCES MRN: [id number] date: 1970 Sex: M Assigned Patient Location: CT Current Patient Location: CT Accession/Order Number: [id number] Exam Date: 04/10/2025 15:45 Report Date: 04/10/2025 [...] Jr., D.O. 04/10/2025 3:56 PM Dictation Location: [place] [address] Electronically authenticated by: [id number] Y Date: 04/10/2025 15:56 Dictated By: Bora Gomez M.D. Signed By: 04/10/25 1559 DD/ 1556 TD/TT: Train Engineer:XR tibia fibula RT 2V Reviewed date:05/07/2025 06:51:13 PM Interpretation: Performing Lab: Notes/Report: Source Facility: [place] [address] [place] [address] XRay Report Signed Patient: MATTY GARCES MR#: [id number] : 1970 Acct:[id number] Age/Sex: 54 / M ADM Date: 05/07/25 Loc: RAD Attending Dr: Og Allen D.O. Ordering Physician: Og Allen Date of Service: 05/07/25 Procedure(s): XR tibia fibula RT 2V Accession Number(s): [id number] cc: Venus Mendez M.D.; Og Allen The [address] [address] Patient Name: MATTY GARCES MRN: [id number] date: 1970 Sex: M Assigned Patient Location: [facility] Current Patient Location: [facility] Accession/Order Number: [id number] Exam Date: 05/07/2025 11:50 Report Date: 05/07/2025 [...] Contreras M.D. 05/07/2025 12:43 PM Dictation Location: [place] [address] Electronically authenticated by: [id number] Y Date: 05/07/2025 12:43 Dictated By: Kaylin Contreras D.O. Signed By: 05/07/25 1246 DD/ 1243 TD/TT: Train Engineer:CBC AUTO DIFF Reviewed date:06/16/2025 01:01:31 PM Interpretation: Performing Lab: Notes/Report: [facility] ,White Blood Count8.64.0-11.0 10 3/uLRed Blood Count4.764.70-6.10 10 6/uL Silyqozkey73.414.0-18.0 g/pOLykrjmmhep89.542.0-54.0 %Mean Corpuscular Macrzr76.3 80.0-94.0 fLMean Corpuscular Akotuoiqil06.225.9-34.0 pgMean Corpuscular HGB Conc 31.529.9-35.2 g/dLRed Cell Distribution Width13.811.0-15.0 %Platelet Ngvxv628 150-450 10 3/uLMean Platelet Fevdix01.09.5-13.5 fLNeutrophils Percent Auto79.1 43.0-75.0 %Lymphocytes Percent Auto10.120.5-60.0 %Monocytes Percent Auto8.31.7- 12.0 %Eosinophils Percent Auto1.40.9-7.0 %Basophils Percent Auto0.60.2-2.0 % Immature Granulocytes Pct Auto0.50.0-0.5 %Neutrophils Absolute Auto6.81.4-6.5 10 3/uLLymphocytes Absolute Auto0.91.2-3.8 10 3/uLMonocytes Absolute Auto0.70.3-0.8 10 3/uLEosinophils Absolute Auto0.10.0-0.7 10 3/uLBasophils Absolute Auto0.10.0- 0.1 10 3/uLImmature Granulocytes Abs Auto0.040.00-0.03 10 3/uLPerforming Lab:see noteML - [facility] LBPROF CHEM 8 (BAS METB) Reviewed date:06/16/2025 01:01:31 PM Interpretation: Performing Lab: Notes/Report: [facility] ,Wqsohe044874-489 mmol/LPotassium3.43.5-5.1 mmol/VGlxqxplp56113-175 mmol/LCarbon Sfmnlzh16.821.0-32.0 mmol/LAnion Gap10.0Ubnbfkl29501-523 mg/dLBlood Urea Cybpedjf17.07.0-18.0 mg/dLCreatinine1.040.70-1.30 mg/dLEstimated GFR ( Elizabeth>60>=60 mL/min/1.73m 2Estimated GFR (Non- Gwen>60>=60 mL/min/1.73m 2BUN Creatinine Ratio11.8Wdskasc4.38.5-10.1 mg/dLPerforming Lab:see noteML - [facility] LBBlood Culture 1 Reviewed date:06/21/2025 06:12:36 PM Interpretation: Performing Lab: Notes/Report: [facility] ,Blood Culture 1See Below For Report Blood Culture 1 NG5D NO GROWTH AT 5 DAYS.^NO GROWTH AT 5 DAYS. Performing Lab:see noteML - [facility] LBBlood Culture 2 Reviewed date:06/21/2025 06:12:36 PM Interpretation: Performing Lab: Notes/Report: [facility] ,Blood Culture 2See Below For Report Blood Culture 2 NG5D NO GROWTH AT 5 DAYS.^NO GROWTH AT 5 DAYS. Performing Lab:see noteML - [facility] LBErythrocyte Sedimentation Rate Reviewed date:06/16/2025 01:01:31 PM Interpretation: Performing Lab: Notes/Report: [facility] ,Erythrocyte Sedimentation Rate46<=20 mm/hrPerforming Lab:see noteML - [facility] LBAerobic Culture Reviewed date:06/19/2025 06:54:26 PM Interpretation: [...] Interpretation ADAM Status Aerobic CulturePerformed at: [facility] Aerobic Culture Organism: Staphylococcus aureus : O:MRSA Isolated O:STAAUR Isolated Organism: 1.1 Antibiotic Interpretation ADAM Status Aerobic [address] [place], [place] [id number] Aerobic Culture Organism: Staphylococcus aureus : O:MRSA Isolated O:STAAUR Isolated Organism: 1.1 Antibiotic Interpretation ADAM Status Aerobic CultureLab Director: Arthur Snyder PhD, Phone: [phone] Aerobic Culture Organism: Staphylococcus aureus : O:MRSA [...] LC - [facility] LB SEE REPORT - Assembler Engine Id information not found for OBX-specific vp biology legend Anaerobic Culture Reviewed date:06/22/2025 12:38:34 PM [...] PM Interpretation: Performing Lab: Notes/Report: Source Facility: [facility]-[address] [place] [address] [place] [address] XRay Report Signed Patient: MATTY GARCES MR#: [id number] : 1970 Acct:[id number] Age/Sex: 54 / M ADM Date: 06/16/25 Loc: [place] 201-[address]: Bonnie Tobar M.D. Ordering Physician: Sera Wayne M.D. Date of Service: 06/16/25 Procedure(s): XR foot LT min 3V Accession Number(s): [id number] cc: Venus Mendez M.D.; Sera Wayne M.D. [place] [address] Patient Name: MATTY GARCES MRN: [id number] date: 1970 Sex: M Assigned Patient Location: ED.MAIN Current Patient Location: [place] Accession/Order Number: [id number] Exam Date: 06/16/2025 02:06 Report Date: 06/16/2025 [...] Jr., D.O. 06/16/2025 8:38 AM Dictation Location: [place] [address] Electronically authenticated by: [id number] Y Date: 06/16/2025 08:38 Dictated By: Bora Gomez M.D. Signed By: 06/16/25839 DD/ 7 TD/TT: Train Engineer:CRP Reviewed date:06/16/2025 01:01:31 PM Interpretation: Performing Lab: Notes/Report: [facility] ,C Reactive Protein2.79<=0.50 mg/dLPerforming Lab:see noteML - [facility] LBErythrocyte Sedimentation Rate Reviewed date:06/16/2025 01:01:31 PM Interpretation: Performing Lab: Notes/Report: [facility] ,Erythrocyte Sedimentation Rate61<=20 mm/hrPerforming Lab:see noteML - [facility] LBAerobic Culture Reviewed date:06/22/2025 12:38:34 PM Interpretation: [...] Clindamycin S F Aerobic CulturePerformed at: [facility] Aerobic Culture Organism: Staphylococcus aureus : [...] S F Clindamycin Clindamycin S F Aerobic [address] [place], [place] [address] Aerobic Culture Organism: Staphylococcus aureus : O:MRSA [...] Aerobic CultureLab Director: Arthur Snyder PhD, Phone: [phone] Aerobic Culture Organism: Staphylococcus aureus : O:MRSA [...] LC - [facility] LB SEE REPORT - Assembler Engine Id information not found for OBX-specific vp biology legend CBC AUTO DIFF Reviewed date:06/17/2025 02:23:52 PM Interpretation: Performing Lab: Notes/Report: [facility] ,White Blood Count8.34.0-11.0 10 3/uLRed Blood Count5.194.70-6.10 10 6/uL Mrsekyjgxv74.814.0-18.0 g/rHYyvccnlmdl35.142.0-54.0 %Mean Corpuscular Guxsww88.8 80.0-94.0 fLMean Corpuscular Ktmgroglqj61.525.9-34.0 pgMean Corpuscular HGB Conc 32.129.9-35.2 g/dLRed Cell Distribution Width13.811.0-15.0 %Platelet Vjdgn816 150-450 10 3/uLMean Platelet Gxfnlx45.29.5-13.5 fLNeutrophils Percent Auto79.0 43.0-75.0 %Lymphocytes Percent Auto10.320.5-60.0 %Monocytes Percent Auto7.31.7- 12.0 %Eosinophils Percent Auto2.30.9-7.0 %Basophils Percent Auto0.60.2-2.0 % Immature Granulocytes Pct Auto0.50.0-0.5 %Neutrophils Absolute Auto6.51.4-6.5 10 3/uLLymphocytes Absolute Auto0.91.2-3.8 10 3/uLMonocytes Absolute Auto0.60.3-0.8 10 3/uLEosinophils Absolute Auto0.20.0-0.7 10 3/uLBasophils Absolute Auto0.10.0- 0.1 10 3/uLImmature Granulocytes Abs Auto0.040.00-0.03 10 3/uLPerforming Lab:see noteML - [facility] LBCRP Reviewed date:06/17/2025 02:23:52 PM Interpretation: Performing Lab: Notes/Report: [facility] ,C Reactive Protein2.92<=0.50 mg/dLPerforming Lab:see noteML - [facility] LBPROF CHEM 8 (BAS METB) Reviewed date:06/17/2025 02:23:52 PM Interpretation: Performing Lab: Notes/Report: [facility] ,Bmtsro381982-594 mmol/LPotassium3.83.5-5.1 mmol/ETcfthiur91333-966 mmol/LCarbon Xsqantt91.121.0-32.0 mmol/LAnion Gap12.7Ccjjpab85223-601 mg/dLBlood Urea Nitrogen7.07.0-18.0 mg/dLCreatinine0.810.70-1.30 mg/dLEstimated GFR ( [place]>60>=60 mL/min/1.73m 2Estimated GFR (Non- Gwen>60>=60 mL/min/1.73m 2BUN Creatinine Ratio8.7Qpkdkga1.58.5-10.1 mg/dLPerforming Lab:see noteML - [facility] LBErythrocyte Sedimentation Rate Reviewed date:06/17/2025 02:23:52 PM Interpretation: Performing Lab: Notes/Report: [facility] ,Erythrocyte Sedimentation Rate88<=20 mm/hrPerforming Lab:see noteML - [facility] LBCBC AUTO DIFF Reviewed date:06/18/2025 12:55:01 PM Interpretation: Performing Lab: Notes/Report: [facility] ,White Blood Count7.74.0-11.0 10 3/uLRed Blood Count5.094.70-6.10 10 6/uL Nyzovnczdj82.214.0-18.0 g/yZTpuzzclkzd50.842.0-54.0 %Mean Corpuscular Kchtud78.0 80.0-94.0 fLMean Corpuscular Wanldazdur41.925.9-34.0 pgMean Corpuscular HGB Conc 31.729.9-35.2 g/dLRed Cell Distribution Width13.711.0-15.0 %Platelet Tpemv848 150-450 10 3/uLMean Platelet Volume9.99.5-13.5 fLNeutrophils Percent Auto74.9 43.0-75.0 %Lymphocytes Percent Auto12.620.5-60.0 %Monocytes Percent Auto8.61.7- 12.0 %Eosinophils Percent Auto2.50.9-7.0 %Basophils Percent Auto0.80.2-2.0 % Immature Granulocytes Pct Auto0.60.0-0.5 %Neutrophils Absolute Auto5.81.4-6.5 10 3/uLLymphocytes Absolute Auto1.01.2-3.8 10 3/uLMonocytes Absolute Auto0.70.3-0.8 10 3/uLEosinophils Absolute Auto0.20.0-0.7 10 3/uLBasophils Absolute Auto0.10.0- 0.1 10 3/uLImmature Granulocytes Abs Auto0.050.00-0.03 10 3/uLPerforming Lab:[facility] LBCRP Reviewed date:06/18/2025 12:55:01 PM Interpretation: Performing Lab: Notes/Report: [facility] ,C Reactive Protein1.51<=0.50 mg/dLPerforming Lab:see noteGerman [facility] LBGLYCOHEMOGLOBIN A1C Reviewed date:06/18/2025 12:55:01 PM Interpretation: Performing Lab: Notes/Report: Comment Add to an already drawn sample [facility] ,Glycohemoglobin A1C5.84.5-6.2 % ADA RECOMMENDED LIMIT 4.0 - 6.0 ADA THERAPEUTIC TARGET < 7.0 ACTION SUGGESTED > 7.0 Estimated Average Rnmrsiq474Rwkdrbytnr Lab:see [facility] LB PROF CHEM 8 (BAS METB) Reviewed date:06/18/2025 12:55:01 PM Interpretation: Performing Lab: Notes/Report: [facility] ,Wijefv229021-467 mmol/LPotassium3.93.5-5.1 mmol/SCbgklkcp84430-356 mmol/LCarbon Frsnazm86.421.0-32.0 mmol/LAnion Gap10.5Kkwgqet3196-865 mg/dLBlood Urea Nitrogen 8.07.0-18.0 mg/dLCreatinine1.010.70-1.30 mg/dLEstimated GFR ( Elizabeth>60 >=60 mL/min/1.73m 2Estimated GFR (Non- Gwen>60>=60 mL/min/1.73m 2BUN Creatinine Ratio7.7Vuiczdh3.78.5-10.1 mg/dLPerforming Lab:see note - [facility] LBVANCOMYCIN TROUGH Reviewed date:06/18/2025 12:55:01 PM Interpretation: Performing Lab: Notes/Report: [facility] ,Vancomycin Tzdwjz92.95.0-20.0 ug/mLPerforming Lab:see [facility] LBErythrocyte Sedimentation Rate Reviewed date:06/18/2025 12:55:01 PM Interpretation: Performing Lab: Notes/Report: [facility] ,Erythrocyte Sedimentation Rate71<=20 mm/hrPerforming Lab:see note - [facility] LBXR FOREIGN BODY EYE Reviewed date:06/18/2025 02:32:50 PM Interpretation: Performing Lab: Notes/Report: Source Facility: [facility]-[address] [place] [address] [place] [address] XRay Report Signed Patient: MATTY GARCES MR#: [id number] : 1970 Acct:[id number] Age/Sex: 54 / M ADM Date: 06/16/25 Loc: MS 201-[address]: Bonnie Tobar M.D. Ordering Physician: Bonnie Tobar M.D. Date of Service: 06/18/25 Procedure(s): XR foreign body eye UBALDO Accession Number(s): [id number] cc: Venus Mendez M.D.; Bonnie Tobar M.D. [facility] [place] [address] Patient Name: MATTY GARCES MRN: [id number] date: 1970 Sex: M Assigned Patient Location: [place] Current Patient Location: [place] Accession/Order Number: [id number] Exam Date: 06/18/2025 13:15 Report Date: 06/18/2025 13:22 At the request of: BONNIE TOBAR MD Procedure: XR foreign body eye UBALDO Orbits 2 views. Reason for exam: Pre-MRI. FINDINGS: No radiopaque foreign body. No bony destruction. XR/XR foreign body eye UBALDO IMPRESSION: No radio opaque foreign body. Impression dictated by: Bora Gomez Jr., DMarileeOMarilee 06/18/2025 1:22 PM Dictation Location: [place] [address] Electronically authenticated by: [id number] Y Date: 06/18/2025 13:22 Dictated By: Bora Gomez M.D. Signed By: 06/18/251324 DD/ 21 TD/TT: Train Engineer:PROF KYLE Roe ([facility]) Reviewed date:06/19/2025 06:54:26 PM Interpretation: Performing Lab: Notes/Report: [facility] ,Tlgojr733955-293 mmol/LPotassium3.93.5-5.1 mmol/AYgrfherh16796-136 mmol/LCarbon Iwijqte20.721.0-32.0 mmol/LAnion Gap11.3Oirevjv12381-239 mg/dLBlood Urea Uokbcvnu72.07.0-18.0 mg/dLCreatinine0.880.70-1.30 mg/dLEstimated GFR ( [place]>60>=60 mL/min/1.73m 2Estimated GFR (Non- Gwen>60>=60 mL/min/1.73m 2BUN Creatinine Ratio11.2Ilokzko1.38.5-10.1 mg/dLPerforming Lab:see noteML - [facility] LBAFB Specimen Processing Reviewed date:06/21/2025 12:47:02 PM [...] Report Acid Fast Smear Negative Performing Lab:see noteLC - [facility] LBAcid Fast Culture Reviewed date:06/21/2025 12:47:02 PM Interpretation: Performing Lab: Notes/Report: 1ST LEFT METATASAL CX [facility] ,Acid Fast CultureSee Below For Report Acid Fast Culture Specimen has been received and testing has been initiated. Acid Fast CulturePerformed at: - [facility] Acid Fast Culture Specimen has been received and testing has been initiated. Acid Fast [address] [place], [place] [id number] Acid Fast Culture Specimen has been received and testing has been initiated. Acid Fast CultureLab Director: Arthur Snyder PhD, Phone: [phone] Acid Fast Culture Specimen has been received and testing has been initiated. Performing Lab:see note LC - [facility] LB SEE REPORT - Assembler Engine Id information not found for OBX-specific vp biology legend Fungus Stain Reviewed date:06/26/2025 02:19:36 PM Interpretation: Performing Lab: Notes/Report: 1ST LEFT METATASAL CX [facility] ,Fungus StainSee Below For Report Fungus Stain Fungus StainKOH/Calcofluor preparation: no fungus observed. Fungus Stain Performing Lab:see note - [facility] LBFungus (Mycology) Culture Reviewed date:06/21/2025 06:12:36 PM Interpretation: Performing Lab: Notes/Report: 1ST LEFT METATASAL CX [facility] ,Fungus (Mycology) CultureSee Below For Report Fungus (Mycology) Culture Fungus (Mycology) CultureCulture Report: Fungus (Mycology) Culture Fungus (Mycology) CultureThe specimen submitted for fungus culture has been received and Fungus (Mycology) Culture Fungus (Mycology) Cultureculture has been initiated. Fungus (Mycology) Culture Fungus (Mycology) CulturePerformed at: [facility] Fungus (Mycology) Culture Fungus (Mycology) [address] [place], [place] [id number] Fungus (Mycology) Culture Fungus (Mycology) CultureLab Director: Arthur Snyder PhD, Phone: [phone] Fungus (Mycology) Culture Performing Lab:see note - [facility] LB SEE REPORT - Assembler Engine Id information not found for OBX-specific vp biology legend Gram Stain Result Reviewed date:06/22/2025 12:04:05 PM Interpretation: Performing Lab: Notes/Report: 1ST LEFT METATASAL CX [facility] ,Gram Stain ResultSee Below For Report Gram Stain Result Gram Stain ResultNo white blood cells seen. Gram Stain Result Gram Stain Result Gram Stain Result Gram Stain ResultNo organisms seen Gram Stain Result Gram Stain ResultPerformed at: [facility] Gram Stain Result Gram Stain [address] [place], [place] [id number] Gram Stain Result Gram Stain ResultLab Director: Arthur Snyder PhD, Phone: [phone] Gram Stain Result Gram Stain Result Gram Stain Result Gram Stain Result* This is a corrected result. * Gram Stain Result Gram Stain Result Gram Stain Result Gram Stain ResultA prior result that was reported as final has been changed. Gram Stain Result Performing Lab:see note - [facility] LB SEE REPORT - Assembler Engine Id information not found for OBX-specific vp biology legend Anaerobic Cult, Extended Incub Reviewed date:07/06/2025 [...] Cult, Extended Incub Performing Lab:see note - [facility] LBTissue Culture Reviewed date:06/25/2025 12:43:42 PM Interpretation: Performing Lab: Notes/Report: 1ST LEFT METATASAL CX [facility] ,Tissue CultureSee Below For Report Tissue Culture Tissue CultureNo growth after 18-24 hours. Tissue Culture Tissue Culture Tissue Culture Tissue CultureNo growth in 36 - 48 hours. Tissue Culture Tissue Culture Tissue Culture Tissue CultureNo growth in 56 - 72 hours. Tissue Culture Tissue CulturePerformed at: [facility] Tissue Culture Tissue [address] [place], [place] [address] Tissue Culture Tissue CultureLab Director: Arthur Snyder PhD, Phone: [phone] Tissue Culture Performing Lab:see note - [facility] LB SEE REPORT - Assembler Engine Id information not found for OBX-specific vp biology legend XR foot LT min 3V Reviewed date:06/21/2025 12:47:02 PM Interpretation: Performing Lab: Notes/Report: Source Facility: [place] [address] XRay Report Signed Patient: MATTY GARCES MR#: [id number] : 1970 Acct:[id number] Age/Sex: 54 / M ADM Date: 06/16/25 Loc: MS 201-[address]: Bonnie Tobar M.D. Ordering Physician: Clarisa Vallejo D.P.M. Date of Service: 06/20/25 Procedure(s): XR foot LT min 3V Accession Number(s): [id number] cc: Clarisa Vallejo D.P.M.; Venus Mendez M.D. [place] [id number] Patient Name: MATTY GARCES MRN: [id number] date: 1970 Sex: M Assigned Patient Location: MS Current Patient Location: MS Accession/Order Number: [id number] Exam Date: 06/20/2025 14:16 Report Date: 06/20/2025 [...] Rodas M.D. 06/20/2025 10:20 PM Dictation Location: [place] [address] Electronically authenticated by: [id number] Y Date: 06/20/2025 22:20 Dictated By: Venkat Rodas M.D. Signed By: 06/20/252222 DD/ 19 TD/TT: Train Engineer:Tissue Culture Reviewed date:07/06/2025 03:55:00 PM Interpretation: Performing Lab: Notes/Report: 1ST LEFT METATASAL CX [facility] ,Tissue CultureSee Below For Report Tissue Culture Tissue CultureNo growth after 18-24 hours. Tissue Culture Tissue Culture Tissue Culture Tissue CultureNo growth in 36 - 48 hours. Tissue Culture Tissue Culture Tissue Culture Tissue CultureNo growth in 56 - 72 hours. Tissue Culture Tissue CulturePerformed at: - [facility] Tissue Culture Tissue [address] [place], [place] [id number] Tissue Culture Tissue CultureLab Director: Arthur Snyder PhD, Phone: [phone] Tissue Culture Performing Lab:see note LC - [facility] LB SEE REPORT - Assembler Engine Id information not found for OBX-specific vp biology legend Fungus (Mycology) Culture Reviewed date:06/26/2025 02:19:36 PM Interpretation: Performing Lab: Notes/Report: 1ST LEFT METATASAL CX [facility] ,Fungus (Mycology) CultureSee Below For Report Fungus (Mycology) Culture Fungus (Mycology) CultureCulture Report: Fungus (Mycology) Culture Fungus (Mycology) CultureThe specimen submitted for fungus culture has been received and Fungus (Mycology) Culture Fungus (Mycology) Cultureculture has been initiated. Fungus (Mycology) Culture Fungus (Mycology) CulturePerformed at: - [facility] Fungus (Mycology) Culture Fungus (Mycology) [address] [place], [place] [id number] Fungus (Mycology) Culture Fungus (Mycology) CultureLab Director: Arthur Snyder PhD, Phone: [phone] Fungus (Mycology) Culture Performing Lab:see note LC - [facility] LB SEE REPORT - Assembler Engine Id information not found for OBX-specific vp biology legend PROF CHEM 8 (BAS METB) Reviewed date:06/21/2025 12:47:02 PM Interpretation: Performing Lab: Notes/Report: [facility] ,Obqeyt031492-802 mmol/LPotassium3.93.5-5.1 mmol/KFuwkzhlu27920-794 mmol/LCarbon Ptbjepo76.521.0-32.0 mmol/LAnion Gap11.0Xxvgpmq01304-282 mg/dLBlood Urea Ivkubbsr31.07.0-18.0 mg/dLCreatinine0.830.70-1.30 mg/dLEstimated GFR ( Elizabeth>60>=60 mL/min/1.73m 2Estimated GFR (Non- Gwen>60>=60 mL/min/1.73m 2BUN Creatinine Ratio18.1Yhrrrgg1.18.5-10.1 mg/dLPerforming Lab:see noteML - [facility] LBCBC no Diff (Hemogram) Reviewed date:06/21/2025 12:47:02 PM Interpretation: Performing Lab: Notes/Report: [facility] ,White Blood Count7.84.0-11.0 10 3/uLRed Blood Count5.294.70-6.10 10 6/uL Aeiwzqawxi09.614.0-18.0 g/pVAgdkwcliie74.742.0-54.0 %Mean Corpuscular Iwviex57.3 80.0-94.0 fLMean Corpuscular Ojmbsllhpe34.625.9-34.0 pgMean Corpuscular HGB Conc 31.329.9-35.2 g/dLRed Cell Distribution Width13.411.0-15.0 %Platelet Iigsv578 150-450 10 3/uLMean Platelet Volume9.79.5-13.5 fLPerforming Lab:see noteML - [facility] LB foot LT wo con Reviewed date:06/19/2025 06:54:26 PM Interpretation: Performing Lab: Notes/Report: Source Facility: [facility]-[address] [place] [address] [place] [address] Magnetic Resonance Report Signed Patient: MATTY GARCES MR#: [id number] : 1970 Acct:[id number] Age/Sex: 54 / M ADM Date: 06/16/25 Loc: MS 201-[address]: Bonnie Tobar M.D. Ordering Physician: Bonnie Tobar M.D. Date of Service: 06/18/25 Procedure(s): MR foot LT wo con Accession Number(s): [id number] cc: Venus Mendez M.D.; Bonnie Tobar M.D. [place] [address] Patient Name: MATTY GARCES MRN: [id number] date: 1970 Sex: M Assigned Patient Location: MS Current Patient Location: MS Accession/Order Number: [id number] Exam Date: 06/18/2025 13:30 Report Date: 06/18/2025 [...] Irving M.D. 06/18/2025 7:34 PM Dictation Location: [place] [address] Electronically authenticated by: [id number] Y Date: 06/18/2025 19:34 Dictated By: Francis Irving M.D. Signed By: 06/18/251936 DD/ 33 TD/TT: Train Engineer:LACTATE or LACTIC ACID Reviewed date:06/16/2025 01:01:31 PM Interpretation: Performing Lab: Notes/Report: [facility] ,Lactate/Lactic Acid1.80.4-2.0 mmol/LPerforming Lab:see noteML - [facility] LBCRP Reviewed date:06/16/2025 01:01:31 PM Interpretation: Performing Lab: Notes/Report: [facility] ,C Reactive Protein2.79<=0.50 mg/dLPerforming Lab:see noteML - [facility] LBTestosterone Reviewed date:04/25/2025 12:59:24 PM Interpretation: Performing Lab: Notes/Report: [facility] ,Testosterone>1809858-211 ng/dL Adult male reference interval is based on a population of healthy nonobese males (BMI <30) between 19 and 39 years old. adia Ch.al. JCEM 2017,102;6810-8252. PMID: 12043544. Performed at: - [facility] [address] [id number] Field Applications Specialist: Arthur Snyder PhD, Phone: [phone] Performing Lab:see noteLC - [facility] LBXR foot LT min 3V Reviewed date:03/07/2025 09:35:46 PM Interpretation: Performing Lab: Notes/Report: Source Facility: [place] [address] XRay Report Signed Patient: MATTY GARCES MR#: [id number] : 1970 Acct:[id number] Age/Sex: 54 / M ADM Date: 03/05/25 Loc: MS 221-[address]: Venus Mendez M.D. Ordering Physician: Clarisa Vallejo D.P.M. Date of Service: 03/06/25 Procedure(s): XR foot LT min 3V Accession Number(s): [id number] cc: Clarisa Vallejo D.P.M.; Venus Mendez M.D. [place] [address] Patient Name: MATTY GARCES MRN: [id number] date: 1970 Sex: M Assigned Patient Location: MS Current Patient Location: MS Accession/Order Number: [id number] Exam Date: 03/06/2025 13:16 Report Date: 03/06/2025 [...] Irving M.D. 03/06/2025 1:19 PM Dictation Location: [place] [address] Electronically authenticated by: [id number] Y Date: 03/06/2025 13:19 Dictated By: Francis Irving M.D. Signed By: 03/06/25 1321 DD/ 1319 TD/TT: Train Engineer:CBC no Diff (Hemogram) Reviewed date:03/07/2025 09:35:46 PM Interpretation: Performing Lab: Notes/Report: [facility] ,White Blood Count6.84.0-11.0 10 3/uLRed Blood Count4.534.70-6.10 10 6/uL Yqvhgiegsh69.314.0-18.0 g/mFJxamgbhbtb07.342.0-54.0 %Mean Corpuscular Dgpmyw51.0 80.0-94.0 fLMean Corpuscular Lniscuulpo91.425.9-34.0 pgMean Corpuscular HGB Conc 33.029.9-35.2 g/dLRed Cell Distribution Width14.611.0-15.0 %Platelet Kxacz087 150-450 10 3/uLMean Platelet Volume9.99.5-13.5 fLPerforming Lab:see note - [facility] LBPROF CHEM 8 (BAS METB) Reviewed date:03/07/2025 09:35:46 PM Interpretation: Performing Lab: Notes/Report: [facility] ,Scueyt362880-958 mmol/LPotassium4.43.5-5.1 mmol/RVxegthde37930-275 mmol/LCarbon Lkrpqbc26.021.0-32.0 mmol/LAnion Gap10.9Rfooclc16418-192 mg/dLBlood Urea Tssrtdmu64.07.0-18.0 mg/dLCreatinine0.870.70-1.30 mg/dLEstimated GFR ( Elizabeth>60>=60 mL/min/1.73m 2Estimated GFR (Non- Gwen>60>=60 mL/min/1.73m 2BUN Creatinine Ratio16.8Ggdniyr6.28.5-10.1 mg/dLPerforming Lab:see noteML - [facility] LBECG 12 lead Reviewed date:03/07/2025 09:35:46 PM Interpretation: Performing Lab: Notes/Report: Source Facility: [facility]-[address] [place] [address] [place] [address] Electrocardiograph Report Signed Patient: MATTY GARCES MR#: [id number] : 1970 Acct:[id number] Age/Sex: 54 / M ADM Date: 03/05/25 Loc: MS 221-[address]: Venus Mendez M.D. Ordering Physician: Jess Ryan Date of Service: 03/05/25 Procedure(s): ECG 12 lead Accession Number(s): [id number] cc: [facility] Test Date: 2025-03-05 Pat Name: MATTY GARCES Department: Room: - Gender: Male Yarn Packer: : 1970 Requested By: 0923 Order Number: [id number] Reading MD: RAMIRO WALLS M.D. Measurements Intervals [place] Rate: 76 P: 60 MA: 178 QRS: 69 QRSD: 100 T: 46 QT: 406 QTc: 437 Interpretive Statements 1100 Sinus rhythm 0102 ARTIFACT PRESENT 9110 normal ECG Compared to ECG 09/23/2024 05:51:07 No significant changes Electronically Signed On 03-06-2025 9:29:34 EDT by RAMIRO WALLS M.D. Dictated By: RAMIRO WALLS Signed By: 03/06/25928 DD/ 06 TD/TT: Train Engineer:XR ankle RT min 3V Reviewed date:03/05/2025 08:19:57 PM Interpretation: Performing Lab: Notes/Report: Source Facility: [place] [address] XRay Report Signed Patient: MATTY GARCES MR#: [id number] : 1970 Acct:[id number] Age/Sex: 54 / M ADM Date: 03/05/25 Loc: ER Attending Dr: Ordering Physician: Jess Ryan Date of Service: 03/05/25 Procedure(s): XR ankle RT min 3V Accession Number(s): [id number] cc: Jess Ryan; Venus Mendez M.D. [place] [id number] Patient Name: MATTY GARCES MRN: [id number] date: 1970 Sex: M Assigned Patient Location: ER Current Patient Location: ER Accession/Order Number: [id number] Exam Date: 03/05/2025 18:27 Report Date: 03/05/2025 [...] Irving M.D. 03/05/2025 6:33 PM Dictation Location: [place] [address] Electronically authenticated by: [id number] Y Date: 03/05/2025 18:33 Dictated By: Francis Irving M.D. Signed By: 03/05/25 183 DD/ 32 TD/TT: Train Engineer:Aerobe ID + Suscept Reviewed date:03/11/2025 05:04:50 PM [...] Aerobe ID + SusceptPerformed at: - [facility] [place] Aerobe ID + Suscept O:MICLUT Isolated Aerobe ID + [id number] [place], [place] [id number] Aerobe ID + Suscept O:MICLUT Isolated Aerobe ID + SusceptLab Director: Arthur Snyder PhD, Phone: [phone] Aerobe ID + Suscept O:MICLUT Isolated Performing Lab:see note LC - [facility] LB SEE REPORT - Assembler Engine Id information not found for OBX-specific vp biology legend Troponin I High Sensitivity Reviewed date:03/05/2025 09:30:34 PM Interpretation: Performing Lab: Notes/Report: [facility] ,Troponin I High Sensitivity7.34.0-76.1 pg/mL CUT-OFF POINTS HAVE BEEN ESTABLISHED BASED ON THE FOURTH UNIVERSAL DEFINITION OF MYOCARDIAL INFARCTION. THE UPPER REFERENCE LIMIT (URL) OF TROPONIN, DEFINED THE 99TH PERCENTILE OF cTnI DISTRIBUTION IN A REFERENCE POPULATION, HAS BEEN CONFIRMED THE DECISION THRESHOLD FOR CA DIAGNOSIS. 99TH PERCENTILE = 76.2 PG/ML NOTE: HIGH-SENSITIVITY TROPONIN ASSAY IS NOT INTENDED TO BE USED IN ISOLATION BUT SHOULD BE INTERPRETED IN CONJUNCTION WITH OTHER DIAGNOSTIC AND CLINICAL INFORMATION. Performing Lab:see noteML - [facility] LBProthrombin Time INR Reviewed date:03/05/2025 09:30:34 PM Interpretation: Performing Lab: Notes/Report: [facility] ,Prothrombin Time12.79.0-11.6 secINR1.22 DESIRED INR: 2.0-3.0 CONDITIONS NOT LISTED BELOW 2.5-3.5 FOR PROSTHETIC HEART VALVE REPLACEMENT 2.5-3.5 RECURRENT THROMBOSIS Performing Lab:see noteML - [facility] LBBlood Culture 1 Reviewed date:03/11/2025 03:17:10 PM Interpretation: Performing Lab: Notes/Report: [facility] ,Blood Culture 1See Below For Report Blood Culture 1 NG5D NO GROWTH AT 5 DAYS.^NO GROWTH AT 5 DAYS. Performing Lab:see note - [facility] LBPTT Reviewed date:03/05/2025 09:30:34 PM Interpretation: Performing Lab: Notes/Report: [facility] ,Partial Thromboplastin Time35.322.3-36.2 secPerforming Lab:see note - [facility] LBPROF 14(COMP METB) Reviewed date:03/05/2025 09:30:34 PM Interpretation: Performing Lab: Notes/Report: [facility] ,Qqgcrb511700-467 mmol/LPotassium4.13.5-5.1 mmol/WQbpxggic92112-999 mmol/LCarbon Wnqukdq28.421.0-32.0 mmol/LAnion Gap10.7Nyoqvbq66822-823 mg/dLBlood Urea Kedlhdwi69.07.0-18.0 mg/dLCreatinine0.880.70-1.30 mg/dLEstimated GFR ( Elizabeth>60>=60 mL/min/1.73m 2Estimated GFR (Non- Gwen>60>=60 mL/min/1.73m 2BUN Creatinine Ratio14.0Tnffdzm28.08.5-10.1 mg/dLBilirubin Total0.60.2-1.0 mg/dLAspartate Amino Wsryczqynkd8031-66 U/LAlanine Ianmtljtshisymph1986-82 U/L Alkaline Imysvwolxby03910-048 U/LTotal Protein8.16.4-8.2 g/dLAlbumin Level3.5 3.4-5.0 g/dLGlobulin4.6Albumin Globulin Ratio0.8Performing Lab:see noteML - [facility] LBLACTATE or LACTIC ACID Reviewed date:03/05/2025 09:30:34 PM Interpretation: Performing Lab: Notes/Report: [facility] ,Lactate/Lactic Acid1.20.4-2.0 mmol/LPerforming Lab:see note - [facility] LBCBC AUTO DIFF Reviewed date:03/05/2025 09:30:34 PM Interpretation: Performing Lab: Notes/Report: [facility] ,White Blood Count6.74.0-11.0 10 3/uLRed Blood Count4.814.70-6.10 10 6/uL Jvsgbtbuug79.014.0-18.0 g/dKCpqsvecpch66.942.0-54.0 %Mean Corpuscular Vcqbff06.1 80.0-94.0 fLMean Corpuscular Unoychtdli05.125.9-34.0 pgMean Corpuscular HGB Conc 33.429.9-35.2 g/dLRed Cell Distribution Width14.511.0-15.0 %Platelet Rzrtn176 150-450 10 3/uLMean Platelet Volume9.69.5-13.5 fLNeutrophils Percent Auto73.6 43.0-75.0 %Lymphocytes Percent Auto13.420.5-60.0 %Monocytes Percent Auto10.51.7- 12.0 %Eosinophils Percent Auto1.10.9-7.0 %Basophils Percent Auto0.60.2-2.0 % Immature Granulocytes Pct Auto0.80.0-0.5 %Neutrophils Absolute Auto4.91.4-6.5 10 3/uLLymphocytes Absolute Auto0.91.2-3.8 10 3/uLMonocytes Absolute Auto0.70.3-0.8 10 3/uLEosinophils Absolute Auto0.10.0-0.7 10 3/uLBasophils Absolute Auto0.00.0- 0.1 10 3/uLImmature Granulocytes Abs Auto0.050.00-0.03 10 3/uLPerforming Lab:see noteML - [facility] LBBNP Reviewed date:03/05/2025 09:30:34 PM Interpretation: Performing Lab: Notes/Report: [facility] ,NT Pro B Type Natriuretic Kkye492.0<=900.0 pg/mLPerforming Lab:see noteML - [facility] LBUS venous doppler LE BI Reviewed date:10/08/2024 12:37:32 PM Interpretation: Performing Lab: Notes/Report: Source Facility: [facility]-[address] [place] [address] [place] [address] Ultrasound Report Signed Patient: MATTY GARCES MR#: [id number] : 1970 Acct:[id number] Age/Sex: 54 / M ADM Date: 10/07/24 Loc: ER Attending Dr: Ordering Physician: Veronique Garrett Date of Service: 10/07/24 Procedure(s): US venous doppler LE RT Accession Number(s): [id number] cc: Venus Mendez M.D.; Veronique Garrett [place] [id number] Patient Name: MATTY GARCES MRN: [id number] date: 1970 Sex: M Assigned Patient Location: ER Current Patient Location: ER Accession/Order Number: [id number] Exam Date: 10/07/2024 15:34 Report Date: 10/07/2024 [...] Dictated By: Carie Saab M.D. Signed By: 10/07/24 1644 DD/ 1642 TD/TT: Train Engineer:Venous Blood Gas Reviewed date:10/08/2024 12:37:32 PM Interpretation: Performing Lab: Notes/Report: [facility] ,pH VBG7.4447.330-7.215CMV6 VBG51.740.0-52.0 mmHgPerforming Lab:see noteML - [facility] LBErythrocyte Sedimentation Rate Reviewed date:10/08/2024 12:37:32 PM Interpretation: Performing Lab: Notes/Report: [facility] ,Erythrocyte Sedimentation Rate69<=20 mm/hrPerforming Lab:see noteML - [facility] LBBlood Culture 2 Reviewed date:10/14/2024 04:42:10 PM Interpretation: Performing Lab: Notes/Report: LEFT AC [facility] ,Blood Culture 2See Below For Report Blood Culture 2 NG5D NO GROWTH AT 5 DAYS. Performing Lab:see note - [facility] LBBlood Culture 1 Reviewed date:10/14/2024 04:42:10 PM Interpretation: Performing Lab: Notes/Report: RIGHT AC [facility] ,Blood Culture 1See Below For Report Blood Culture 1 NG5D NO GROWTH AT 5 DAYS. Performing Lab:see note - [facility] LBPROF 14(COMP METB) Reviewed date:10/08/2024 12:37:32 PM Interpretation: Performing Lab: Notes/Report: [facility] ,Wvntqw725035-830 mmol/LPotassium3.93.5-5.1 mmol/LWquvlvpl32516-353 mmol/LCarbon Begovtx15.221.0-32.0 mmol/LAnion Gap8.9Bfuoggy5137-110 mg/dLBlood Urea Nitrogen 12.07.0-18.0 mg/dLCreatinine1.290.70-1.30 mg/dLEstimated GFR ( Elizabeth>60 >=60 mL/min/1.73m 2Estimated GFR (Non- Ame58>=60 mL/min/1.73m 2BUN Creatinine Ratio9.4Jfkrdtk5.78.5-10.1 mg/dLBilirubin Total0.60.2-1.0 mg/dL Aspartate Amino Ipqspreptad5193-29 U/LAlanine Rhdyhjpxvzinkppu9297-14 U/L Alkaline Wfskbebmmqh85423-737 U/LTotal Protein7.66.4-8.2 g/dLAlbumin Level3.3 3.4-5.0 g/dLGlobulin4.3Albumin Globulin Ratio0.8Performing Lab:see note - [facility] LBLACTATE or LACTIC ACID Reviewed date:10/08/2024 12:37:32 PM Interpretation: Performing Lab: Notes/Report: [facility] ,Lactate/Lactic Acid2.00.4-2.0 mmol/LPerforming Lab:see noteML - [facility] LBCRP Reviewed date:10/08/2024 12:37:32 PM Interpretation: Performing Lab: Notes/Report: [facility] ,C Reactive Protein2.61<=0.50 mg/dLPerforming Lab:see noteML - [facility] LBCBC AUTO DIFF Reviewed date:10/08/2024 12:37:32 PM Interpretation: Performing Lab: Notes/Report: [facility] ,White Blood Count8.84.0-11.0 10 3/uLRed Blood Count4.744.70-6.10 10 6/uL Vvjceryjcx87.714.0-18.0 g/pITctkdfybcb01.742.0-54.0 %Mean Corpuscular Zdlolo19.0 80.0-94.0 fLMean Corpuscular Tumaaoyjha32.825.9-34.0 pgMean Corpuscular HGB Conc 30.529.9-35.2 g/dLRed Cell Distribution Width15.711.0-15.0 %Platelet Llnha965 150-450 10 3/uLMean Platelet Volume9.19.5-13.5 fLNeutrophils Percent Auto80.6 43.0-75.0 %Lymphocytes Percent Auto8.920.5-60.0 %Monocytes Percent Auto6.61.7- 12.0 %Eosinophils Percent Auto1.70.9-7.0 %Basophils Percent Auto0.80.2-2.0 % Immature Granulocytes Pct Auto1.40.0-0.5 %Neutrophils Absolute Auto7.11.4-6.5 10 3/uLLymphocytes Absolute Auto0.81.2-3.8 10 3/uLMonocytes Absolute Auto0.60.3-0.8 10 3/uLEosinophils Absolute Auto0.20.0-0.7 10 3/uLBasophils Absolute Auto0.10.0- 0.1 10 3/uLImmature Granulocytes Abs Auto0.120.00-0.03 10 3/uLPerforming Lab:see noteML - [facility] LBUS venous doppler LE BI Reviewed date:10/08/2024 12:37:32 PM Interpretation: Performing Lab: Notes/Report: Source Facility: [place] [address] [place] [address] Ultrasound Report Signed Patient: MATTY GARCES MR#: [id number] : 1970 Acct:[id number] Age/Sex: 54 / M ADM Date: 10/05/24 Loc: ER Attending Dr: Ordering Physician: Melissa Duggan Date of Service: 10/05/24 Procedure(s): US venous doppler LE RT Accession Number(s): [id number] cc: Venus Mendez M.D.; Melissa Duggan [place] [address] Patient Name: MATTY GARCES MRN: [id number] date: 1970 Sex: M Assigned Patient Location: ER Current Patient Location: ED.MAIN Accession/Order Number: [id number] Exam Date: 10/05/2024 19:00 Report Date: 10/05/2024 [...] M.A. Signed By: 10/05/242017 DD/ 15 TD/TT: Train Engineer:JESSICA FERRERA Reviewed date:09/24/2024 10:37:52 AM Interpretation: Performing Lab: Notes/Report: [facility] ,Vancomycin Hsuubx90.45.0-20.0 ug/mLPerforming Lab:see noteML - [facility] LBPROF CHEM 8 (BAS METB) Reviewed date:09/24/2024 10:37:52 AM Interpretation: Performing Lab: Notes/Report: [facility] ,Puwbch461290-431 mmol/LPotassium3.73.5-5.1 mmol/HGaktqdsk52295-871 mmol/LCarbon Xyietel88.121.0-32.0 mmol/LAnion Gap9.8Wksrwdw73559-958 mg/dLBlood Urea Nitrogen 7.07.0-18.0 mg/dLCreatinine1.010.70-1.30 mg/dLEstimated GFR ( Elizabeth>60 >=60 mL/min/1.73m 2Estimated GFR (Non- Gwen>60>=60 mL/min/1.73m 2BUN Creatinine Ratio6.5Ejiuslr9.98.5-10.1 mg/dLPerforming Lab:see noteML - [facility] LBCRP Reviewed date:09/24/2024 10:37:52 AM Interpretation: Performing Lab: Notes/Report: [facility] ,C Reactive Protein0.89<=0.50 mg/dLPerforming Lab:see note - [facility] LBCBC AUTO DIFF Reviewed date:09/24/2024 10:37:52 AM Interpretation: Performing Lab: Notes/Report: [facility] ,White Blood Count6.44.0-11.0 10 3/uLRed Blood Count5.524.70-6.10 10 6/uL Jzrehmqdmh77.614.0-18.0 g/xPRzhqoinbzs56.842.0-54.0 %Mean Corpuscular Ffseqd35.6 80.0-94.0 fLMean Corpuscular Wjpjvfwhdj75.425.9-34.0 pgMean Corpuscular HGB Conc 30.529.9-35.2 g/dLRed Cell Distribution Width15.211.0-15.0 %Platelet Fzwjp486 150-450 10 3/uLMean Platelet Volume9.89.5-13.5 fLNeutrophils Percent Auto72.0 43.0-75.0 %Lymphocytes Percent Auto13.220.5-60.0 %Monocytes Percent Auto10.71.7- 12.0 %Eosinophils Percent Auto1.90.9-7.0 %Basophils Percent Auto0.80.2-2.0 % Immature Granulocytes Pct Auto1.40.0-0.5 %Neutrophils Absolute Auto4.61.4-6.5 10 3/uLLymphocytes Absolute Auto0.81.2-3.8 10 3/uLMonocytes Absolute Auto0.70.3-0.8 10 3/uLEosinophils Absolute Auto0.10.0-0.7 10 3/uLBasophils Absolute Auto0.10.0- 0.1 10 3/uLImmature Granulocytes Abs Auto0.090.00-0.03 10 3/uLPerforming Lab:see noteML - [facility] LBCT soft tissue neck w con Reviewed date:09/20/2024 07:18:09 PM Interpretation: Performing Lab: Notes/Report: Source Facility: [place] [address] CT Scan Report Signed Patient: MATTY GARCES MR#: [id number] : 1970 Acct:[id number] Age/Sex: 53 / M ADM Date: 09/19/24 Loc: ICU 270-[address]: Venus Mendez M.D. Ordering Physician: Venus Mendez M.D. Date of Service: 09/20/24 Procedure(s): CT soft tissue neck w con Accession Number(s): [id number] cc: Venus Mendez M.D. [place] [id number] Patient Name: MATTY GARCES MRN: [id number] date: 1970 Sex: M Assigned Patient Location: ICU Current Patient Location: ICU Accession/Order Number: [id number] Exam Date: 09/20/2024 13:15 Report Date: 09/20/2024 [...] clear. Masseters are clear. Skull base intact. Tube Teller spaces are normal. The parotid glands are [...] Signed By: 09/20/24 1458 DD/ 1456 TD/TT: Train Engineer:PROF Deutsch(COMP METB) Reviewed date:09/20/2024 07:18:09 PM Interpretation: Performing Lab: Notes/Report: [facility] ,Vntnrx457640-403 mmol/LPotassium4.03.5-5.1 mmol/QQkrzrrzm59533-155 mmol/LCarbon Rvtdvod87.521.0-32.0 mmol/LAnion Gap9.3Pprzxav7998-255 mg/dLBlood Urea Nitrogen 11.07.0-18.0 mg/dLCreatinine1.000.70-1.30 mg/dLEstimated GFR ( Elizabeth>60 >=60 mL/min/1.73m 2Estimated GFR (Non- Gwen>60>=60 mL/min/1.73m 2BUN Creatinine Ratio11.4Ndixeij4.78.5-10.1 mg/dLBilirubin Total0.60.2-1.0 mg/dL Aspartate Amino Zzruhsktlnp9626-36 U/LAlanine Lutaslmhlvklbief6297-27 U/L Alkaline Boatcjbalya44115-582 U/LTotal Protein7.06.4-8.2 g/dLAlbumin Level3.1 3.4-5.0 g/dLGlobulin3.9Albumin Globulin Ratio0.8Performing Lab:see noteML - [facility] LBCBC AUTO DIFF Reviewed date:09/20/2024 07:18:09 PM Interpretation: Performing Lab: Notes/Report: [facility] ,White Blood Count6.64.0-11.0 10 3/uLRed Blood Count5.194.70-6.10 10 6/uL Corzwoswsy65.814.0-18.0 g/fAMlpqytsjyz18.142.0-54.0 %Mean Corpuscular Ieomqn00.9 80.0-94.0 fLMean Corpuscular Chhlnmxnzx96.625.9-34.0 pgMean Corpuscular HGB Conc 30.629.9-35.2 g/dLRed Cell Distribution Width15.211.0-15.0 %Platelet Lwtyg034 150-450 10 3/uLMean Platelet Gknfnz04.29.5-13.5 fLNeutrophils Percent Auto74.1 43.0-75.0 %Lymphocytes Percent Auto10.420.5-60.0 %Monocytes Percent Auto11.41.7- 12.0 %Eosinophils Percent Auto2.10.9-7.0 %Basophils Percent Auto0.90.2-2.0 % Immature Granulocytes Pct Auto1.10.0-0.5 %Neutrophils Absolute Auto4.91.4-6.5 10 3/uLLymphocytes Absolute Auto0.71.2-3.8 10 3/uLMonocytes Absolute Auto0.80.3-0.8 10 3/uLEosinophils Absolute Auto0.10.0-0.7 10 3/uLBasophils Absolute Auto0.10.0- 0.1 10 3/uLImmature Granulocytes Abs Auto0.070.00-0.03 10 3/uLPerforming Lab:see noteML - [facility] LBVenous Blood Gas Reviewed date:09/19/2024 07:12:29 PM Interpretation: Performing Lab: Notes/Report: [facility] ,pH VBG7.4767.330-7.657GPJ1 VBG39.340.0-52.0 mmHgPerforming Lab:see noteML - [facility] LBPROF 14(COMP METB) Reviewed date:09/20/2024 07:18:09 PM Interpretation: Performing Lab: Notes/Report: [facility] ,Rkvzhg792399-670 mmol/LPotassium3.73.5-5.1 mmol/TFzautgqi96039-462 mmol/LCarbon Bbvokep19.621.0-32.0 mmol/LAnion Gap10.4Oiwpdtu72577-206 mg/dLBlood Urea Owuxipgg68.07.0-18.0 mg/dLCreatinine1.040.70-1.30 mg/dLEstimated GFR ( Elizabeth>60>=60 mL/min/1.73m 2Estimated GFR (Non- Gwen>60>=60 mL/min/1.73m 2BUN Creatinine Ratio11.7Upfjyyu2.28.5-10.1 mg/dLBilirubin Total0.50.2-1.0 mg/dL Aspartate Amino Dxvciszvzsa4706-99 U/LAlanine Kyoibvqkvottglei3537-59 U/L Alkaline Lxjsgcnivjq63447-087 U/LTotal Protein7.46.4-8.2 g/dLAlbumin Level3.3 3.4-5.0 g/dLGlobulin4.1Albumin Globulin Ratio0.8Performing Lab:see noteML - [facility] LBLACTATE or LACTIC ACID Reviewed date:09/20/2024 07:18:09 PM Interpretation: Performing Lab: Notes/Report: [facility] ,Lactate/Lactic Acid1.40.4-2.0 mmol/LPerforming Lab:see noteML - [facility] LBCRP Reviewed date:09/20/2024 07:18:09 PM Interpretation: Performing Lab: Notes/Report: [facility] ,C Reactive Protein2.51<=0.50 mg/dLPerforming Lab:see noteML - [facility] LBXR ankle LT min 3V Reviewed date:08/29/2024 12:27:30 PM Interpretation: Performing Lab: Notes/Report: Source Facility: [facility]-[address] [place] [address] [place] [address] XRay Report Signed Patient: MATTY GARCES MR#: [id number] : 1970 Acct:[id number] Age/Sex: 53 / M ADM Date: 08/29/24 Loc: ER Attending Dr: Ordering Physician: Sukhdev Amaral Date of Service: 08/29/24 Procedure(s): XR ankle LT min 3V Accession Number(s): [id number] cc: Venus Mendez M.D.; Sukhdev Paula [place] [address] Patient Name: MATTY GARCES MRN: [id number] date: 1970 Sex: M Assigned Patient Location: ED.MAIN Current Patient Location: ER Accession/Order Number: [id number] Exam Date: 08/29/2024 05:10 Report Date: 08/29/2024 [...] Signed By: 08/29/24 0535 DD/ 0532 TD/TT: Train Engineer:XR foot LT min 3V Reviewed date:08/29/2024 12:27:30 PM Interpretation: Performing Lab: Notes/Report: Source Facility: [place] [address] XRay Report Signed Patient: MATTY GARCES MR#: [id number] : 1970 Acct:[id number] Age/Sex: 53 / M ADM Date: 08/29/24 Loc: ER Attending Dr: Ordering Physician: Sukhdev Amaral Date of Service: 08/29/24 Procedure(s): XR foot LT min 3V Accession Number(s): [id number] cc: Venus Mendez M.D.; Sukhdev Amaral [place] [address] Patient Name: MATTY GARCES MRN: [id number] date: 1970 Sex: M Assigned Patient Location: ED.MAIN Current Patient Location: ER Accession/Order Number: [id number] Exam Date: 08/29/2024 05:10 Report Date: 08/29/2024 [...] Signed By: 08/29/24 0535 DD/ 0532 TD/TT: Train Engineer:XR foot LT min 3V Reviewed date:08/29/2024 12:27:30 PM Interpretation: Performing Lab: Notes/Report: Source Facility: [place] [address] [place] [address] XRay Report Signed Patient: MATTY GARCES MR#: [id number] : 1970 Acct:[id number] Age/Sex: 53 / M ADM Date: 08/22/24 Loc: Attending Dr: Brayden Gooden Ordering Physician: Brayden Gooden Date of Service: 08/22/24 Procedure(s): XR foot LT min 3V Accession Number(s): [id number] cc: Venus Mendez M.D.; Brayden Gooden [place] [id number] Patient Name: MATTY GARCES MRN: [id number] date: 1970 Sex: M Assigned Patient Location: Current Patient Location: Accession/Order Number: [id number] Exam Date: 08/22/2024 13:51 Report Date: 08/23/2024 [...] M.D. Signed By: 08/23/24801 DD/ 9 TD/TT: Train Engineer:PSA SCREENING Reviewed date:08/05/2024 10:32:26 AM Interpretation: Performing Lab: Notes/Report: [facility] ,Prostate Specific Antigen Scrn2.37<=4.00 ng/mLPerforming Lab:see noteML - [facility] LBPROF 14(COMP METB) Reviewed date:08/05/2024 10:32:26 AM Interpretation: Performing Lab: Notes/Report: [facility] ,Oildgo663537-975 mmol/LPotassium4.03.5-5.1 mmol/MDdkhnxsn53606-053 mmol/LCarbon Iyerbkc49.821.0-32.0 mmol/LAnion Gap11.0Fnurzkm6284-160 mg/dLBlood Urea Nitrogen 11.07.0-18.0 mg/dLCreatinine1.210.70-1.30 mg/dLEstimated GFR ( Elizabeth>60 >=60 mL/min/1.73m 2Estimated GFR (Non- Gwen>60>=60 mL/min/1.73m 2BUN Creatinine Ratio9.2Ldwwubl3.98.5-10.1 mg/dLBilirubin Total0.90.2-1.0 mg/dL Aspartate Amino Flqjvptitbu8697-64 U/LAlanine Fmjuhpugawefgplt8555-81 U/L Alkaline Jiriubrnncm37215-266 U/LTotal Protein7.96.4-8.2 g/dLAlbumin Level3.6 3.4-5.0 g/dLGlobulin4.3Albumin Globulin Ratio0.8Performing Lab:see noteML - [facility] LBLIPID PROFILE Reviewed date:08/05/2024 10:32:26 AM Interpretation: Performing Lab: Notes/Report: [facility] ,Tmhmjbighgccq408<=150 mg/eYYxwyxbmvjpy173<=200 mg/dLHDL Lvulmvbyrfp0857-75 mg/dL > or =60 mg/dl - LOW CARDIOVASCULAR RISK <40 mg/dl - HIGH CARDIOVASCULAR RISK LDL Cholesterol Lshgpwqkep691.0 <100 mg/dl OPTIMAL 100-129 mg/dl NEAR OR ABOVE OPTIMAL 130-159 mg/dl BORDERLINE HIGH 160-189 mg/dl HIGH >190 mg/dl VERY HIGH VLDL PJKKOUNYCOR33.6Chol HDL Ratio4.7 3.3 - 4.4 LOW RISK 4.4 - 7.1 AVERAGE RISK 7.1 - 11.0 MODERATE RISK >11.0 HIGH RISK Performing Lab:see noteML - [facility] LBCBC AUTO DIFF Reviewed date:08/05/2024 10:32:26 AM Interpretation: Performing Lab: Notes/Report: [facility] ,White Blood Count9.34.0-11.0 10 3/uLRed Blood Count5.894.70-6.10 10 6/uL Nufjrkhfqp51.814.0-18.0 g/gKXnglwhzqam12.442.0-54.0 %Mean Corpuscular Oenylw66.6 80.0-94.0 fLMean Corpuscular Egjqlawwwf43.825.9-34.0 pgMean Corpuscular HGB Conc 31.329.9-35.2 g/dLRed Cell Distribution Width15.911.0-15.0 %Platelet Cenkd326 150-450 10 3/uLMean Platelet Volume9.79.5-13.5 fLNeutrophils Percent Auto77.1 43.0-75.0 %Lymphocytes Percent Auto10.820.5-60.0 %Monocytes Percent Auto8.91.7- 12.0 %Eosinophils Percent Auto1.40.9-7.0 %Basophils Percent Auto0.90.2-2.0 % Immature Granulocytes Pct Auto0.90.0-0.5 %Neutrophils Absolute Auto7.21.4-6.5 10 3/uLLymphocytes Absolute Auto1.01.2-3.8 10 3/uLMonocytes Absolute Auto0.80.3-0.8 10 3/uLEosinophils Absolute Auto0.10.0-0.7 10 3/uLBasophils Absolute Auto0.10.0- 0.1 10 3/uLImmature Granulocytes Abs Auto0.080.00-0.03 10 3/uLPerforming Lab:see noteML - [facility] Reason For Referral Diagnosis 1 Ankle pain (M25.579) Referral Organization [facility] Referring Provider First Name Kareem Referring Provider Last Name Andrea Referring Provider [facility] jayden Referred Provider Clarisa Vallejo Referred Provider Specialty Podiatry Referral Priority Routine Diagnosis 1 Left fibular fractur e (S82.402A) Referral Organization [facility] Referring Provider First Name Kareem Referring Provider Last Name [facility] Fahad Bland Referred Provider [...] alcohol in the p ast year? No Rwqvhc6UqwmuyriukdzezCyvkujhzNBGMC-O (Standard) Question Answer Notes Did you have a drink containing alcohol in the p ast year? No Jabvjn8ExlxdjlzbilbwzZzdiorsn Problems Problem Type SNOMED Code ICD Code Onset Dates Problem Status W/U Status Risk Notes Problem Obstructive sleep ap lorna syndrome (disorder) (36681018) Obstructive sleep apnea (adult) (pediatric) (G47.33) ActiveconfirmedProblemFoot ulcer due to type 2 diabetes mellitus (5963327456849) Type 2 diabetes mellitus with foot ulcer (E11.621)ActiveconfirmedProblemInsomnia (574627932)Insomnia, unspecified (G47.00)ActiveconfirmedProblemAcute on chronic hypoxemic and hypercapnic respiratory failure (disorder) (49659283625853)Acute and chronic respiratory failure with hypercapnia (J96.22)ActiveconfirmedProblem Arthropathy associated with a neurological disorder (77609042)Charcot's joint, left ankle and foot (M14.672)ActiveconfirmedProblemHypertension (22082111) Hypertension (I10)ActiveconfirmedProblemGastroesophageal reflux disease (358682512)GERD (gastroesophageal reflux disease) (K21.9)ActiveconfirmedProblem Carpal tunnel syndrome (59161758)Carpal tunnel syndrome (G56.00)Activeconfirmed ProblemAnxiety (45167033)Anxiety (F41.9)ActiveconfirmedProblemPneumonia (628203719)Pneumonia (J18.9)ActiveconfirmedProblemDepression (607948278) Depression (F32.9)ActiveconfirmedProblemObstructive sleep apnea syndrome (70006913)PATEL (obstructive sleep apnea) (G47.33)ActiveconfirmedProblemInsomnia (516808182)Insomnia (G47.00)ActiveconfirmedProblemMigraine (46115928)Migraine (G43.909)ActiveconfirmedProblemLumbar radiculopathy (562814422)Lumbar radiculopathy (M54.16)ActiveconfirmedProblemHypersomnia (45578765)Hypersomnia (G47.10)ActiveconfirmedProblemLumbar arthritis (disorder) (126937981)Lumbar spondylitis (M46.96)ActiveconfirmedProblemCervical disc disease (058283029) Cervical disc disease (M50.90)ActiveconfirmedProblemSystolic murmur (88380820) Systolic murmur (I38)ActiveconfirmedProblemCellulitis (569069716)Cellulitis (L03.90)ActiveconfirmedProblemChronic pain (71938845)Chronic pain (G89.29)Active confirmedProblemLateral epicondylitis (189632362)Lateral epicondylitis (M77.10) ActiveconfirmedProblemOtitis externa (7543193)Otitis externa (H60.90)Active confirmedProblemOtitis externa of left ear (7942530192613399)Otitis externa of left ear (H60.92)ActiveconfirmedProblemArthralgia of the ankle and/or foot (143541152)Left ankle pain (M25.572)ActiveconfirmedProblemRight upper quadrant pain (116852323)Right upper quadrant abdominal pain (R10.11)Activeconfirmed ProblemBursitis (00586063)Bursitis (M71.9)ActiveconfirmedProblemErectile dysfunction (disorder) (658729934)Impotence (N52.9)ActiveconfirmedProblem Decreased testosterone level (080000244)Decreased testosterone level (E29.1) ActiveconfirmedProblemLeft fibular fracture (S82.402A)ActiveconfirmedProblem Ulcer of right foot (disorder) (829359863)Foot ulcer, right (L97.519)Active 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)ActiveconfirmedProblemGangrene due to type 2 diabetes mellitus (disorder) (840515429)Gangrene associated with type 2 diabetes mellitus (E11.52)ActiveconfirmedProblemNon-pressure chronic ulcer of other part of left foot with muscle involvement without evidence of necrosis (L97.525)ActiveconfirmedProblemUlcer of big toe (disorder) (591715985)Chronic ulcer of great toe of left foot with fat layer exposed (L97.522)Activeconfirmed ProblemHyperhidrosis (101580454)Hyperhidrosis (R61)ActiveconfirmedProblemType II diabetes mellitus without complication (031775765)Diabetes (E11.9)Active confirmedProblemDiabetes mellitus (16592655)Diabetes mellitus (E11.9)Active confirmedProblemBody mass index 35.00 to 39.99 (229624900928025)Body mass index [BMI] 38.0-38.9, adult (Z68.38)ActiveconfirmedProblemPolyneuropathy due to type 2 diabetes mellitus (036588051)Controlled type 2 diabetes mellitus with diabetic polyneuropathy, unspecified whether predatory animal exterminator insulin use (E11.42)Active confirmedProblemChronic ulcer of right foot (disorder) (81854156130355532) Chronic ulcer of right foot with fat layer exposed (L97.512)Activeconfirmed ProblemDegeneration of lumbosacral intervertebral disc (34144288)Degenerative disc disease at L5-S1 level (M51.37)Activeconfirmed Vital Signs Blood pressure diastolic 88 mm Hg 06/28/2025 Hzrvlj75 in06/28/2025lood pressure ubcdjlyf897 mm Hg06/28/20252565Odqiqa225.8 lbs 06/28/2025BMI33.59 kg/m206/28/2025 Encounters Encounter Location Date Provider Diagnosis [facility] [address] [facility] [place] [address] 08/03/2024 Kareem Mendez Chronic pain G89.29 ; Migraine G43.909 ; HTN (hypertension) I10 ; Diabetes E11.9 and Screening for prostate cancer Z12.5 [facility] [address] [place] [address] 08/05/2024 Kareem [facility] [place] [address] 09/20/2024Doug [facility] [place] [address]/04/2025Doug [facility] [facility] [address]/08/2025[facility] [place] [address]/Doug [facility] [place] [address]/Doug [facility] [place] [facility] [place] [address]/ Kareem [facility] [place] [address]/[facility] [place] [address]/11/2024Doug HoyCellulitis L03.90 and Hypertension I10 [facility] [facility] [place] [address] 10/17/2024Doug [facility] [place] [facility] [place] [place] [address]/03/2025[facility]BN[facility] [place] [place] [place] [address]/Doug [facility] [place] [address]/10/2024Doug HoyAcute otitis media, left H66.92 ; Otalgia of left ear H92.02 and Otitis externa of left ear H60.92[facility] [facility] [place] [address]/08/2025 Kareem HoyLumbar radiculopathy M54.16 ; Decreased testosterone level E29.1 ; Insomnia G47.00 ; Type 2 diabetes mellitus with foot ulcer E11.621 ; Hypertension I10 and Ankle pain M25.579[facility] [facility] [place] [address]/Doug [facility] [place] [address]/11/2024Doug HoyLumbar radiculopathy M54.16 ; Diabetes E11.9 ; Controlled type 2 diabetes mellitus with diabetic polyneuropathy, unspecified whether predatory animal exterminator insulin use E11.42 ; Ankle pain, left 719.47 and Ankle pain, right M25.571[facility] [facility] [place] [address]/Doug HoyLeft fibular fracture S82.402[facility] [facility] [address]/02/2025Doug [facility] [place] [address]/08/2025Doug HoyHypertension Z26QpywuqyAdventhealth [facility] [place] [address]/08/2025 Kareem [facility] [place] [address]/Doug HoyHTN (hypertension) I10 and Decreased testosterone level E29.1BConejos [facility] Hospital[address] [place] [address]/Doug HoyHypertension U42QubolksAdventhealth Littleton[address] [place] [address]/Doug [facility] [place] [address]/01/2025Doug Hoy Hypertension P55KzjtjvuAdventhealth Littleton[address] [place] [address]/04/2025Doug [facility] [place] [address]/Doug HoyType 2 diabetes mellitus with foot ulcer E11.621 and Hypertension Z96NimlolyAdventhealth Littleton[address] [place] [address]/Doug [facility] [address] [place] [address]/Doug Hoy Assessments Encounter Date Diagnosis (ICD Code) Assessment Notes Treatment Notes Treatment Clinical Notes Section Notes 10/16/2024 Cellulitis (ICD-10 - L03.90) 10/16/2024Hypertension (ICD-10 - I10)12/13/2024ute otitis media, left (ICD-10 - H66.92)02/22/2025Lumbar radiculopathy (ICD-10 - M54.16)02/22/2025Decreased testosterone level (ICD-10 - E29.1)04/24/2025Hypertension (ICD-10 - I10)stop the mylivwudnk84/15/2025Hypertension (ICD-10 - I10)06/28/2025Type 2 diabetes mellitus with foot ulcer (ICD-10 - E11.621)06/28/2025Hypertension (ICD-10 - I10) disucssed restarting whole doxazosin since bp up sl03/15/2025Lumbar radiculopathy (ICD-10 - M54.16)03/15/2025Diabetes (ICD-10 - E11.9)08/03/2024 Chronic pain (ICD-10 - G89.29)08/03/2024Migraine (ICD-10 - G43.909)04/11/2025 Left fibular fracture (ICD-10 - S82.402A)04/25/2025HTN (hypertension) (ICD-10 - I10)05/18/2025Hypertension (ICD-10 - I10)04/25/2025Decreased testosterone level (ICD-10 - E29.1)08/03/2024HTN (hypertension) (ICD-10 - I10)03/15/2025ontrolled type 2 diabetes mellitus with diabetic polyneuropathy, unspecified whether skilled nursing insulin use (ICD-10 - E11.42)02/22/2025Insomnia (ICD-10 - G47.00)12/13/2024 Otalgia of left ear (ICD-10 - H92.02)12/13/2024Otitis externa of left ear (ICD- 10 - H60.92)02/22/2025Type 2 diabetes mellitus with foot ulcer (ICD-10 - E11.621)03/15/2025nkle pain, left (ICD9-CM - 719.47)08/03/2024iabetes (ICD-10 - [...] until they are finished. You can use thvr-onl-uecqlzp acetaminophen or ibuprofen if needed for pain. You have been prescribed antibiotics. You should be extra vigilant about hand washing or using hand casino banker gel. You should follow up with your [...] Provider Name:Kareem Mendez, 10:45:00 AM, [address] [place], [address], Insurance Providers Payer Name Payer Address Payer Phone Subscriber Number Group Number Insured Name Patient Relationship to Insured Coverage Start Date Coverage End Date [employer] [place] [employer] [address] [address] [place] [address] [id number] Adam Garces - patient is the [id number] 2022 Medications Administered Medication Instructions Date of Administration Dosage Notes Ceftriaxone 1 gram g1 gmCeftriaxone 1 gram gKenalog-40120 mg120 Kenalog-40020 pz792Ttcjghn-2316/08/4471831 mgKetorolac Tromethamine mgKetorolac Cgodshsemtro72/29/202360 nr67Tudkibvnt Tromethamine xn19Wtuitnzbv Bkgmhxzmjfsb63/28/202360 vf14Cctzpepcq Tromethamine mgKetorolac Ucicfbweputy83/08/202460 mgOrphenadrine Citrate mgOrphenadrine Cinwrsk51 vb51Rinsmnivotke Citrate xn04Mppiddirjidf Vpgukyz390 mg Medical (General) History Medical History History ICD Code HTN DECREASED TESTOSTERONE LEVELLUMBAR RADICULOPATHYHYPERSOMNIASYSTOLIC MURMUR HYPERHIDROSISDEGENERATIVE DISC DISEASELUMBAR SPONDYLOSISDIABETESCERVICALDISC DISEASECARPAL TUNNELLATERAL EPICONDYLITISCHRONIC PAINGERDINSOMNIAIMPOTENCE ANXIETYOSASurgical History Surgery Date(Month/Year) CERVICAL DECOMPRESSION RIGHT SHOULDERTONSILLECTOMYUVULOPLASTYVASECTOMYREVISED C6-Q1FUDIFBIYR HEAD OF FIRST PHALANXORIF left ankle Lateral Malleolus Fx, Closed Reduction Post Malleolus Fx03/15/24Left Great Toe Oazurppcff55/2025Hospitalization History Reason Date(Month/Year) 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
--- OUTSIDE RECORDS SUMMARY | 2025-07-18 11:38 | XMS_ITS | Clinical Summary ---
Author Organization [facility] Address [address] [place] [address] Care Team Providers Care Python Engineer Name Role Phone Unavailable Primary Care Provider Unavailabl e Source Comments The following information is NOT included in Care Everywhere downloads:Psychiatric notes, ECG results, Cardiac Rehab notes, Pulmonary Function notes, data from [employer] (includes but not limited toPregnancy data,audiograms, eye exams, pre-surgical evaluation notes, well-child exam data).[facility] Medications MedicationSigDispense QuantityRefillsLast FilledStart DateEnd DateStatus TRAMADOL [...] InformationValueDate RecordedSex Assigned at BirthNot on fileLegal VxlVkrh95/12/2012 1:17 PM ESTGender IdentityNot on file Sexual OrientationNot on file Plan of Treatment Health MaintenanceDue DateLast AqldFyzngfjwYwtjjvdgoiu40/21/1970HIV Test 1984Hepatitis C Vpwwydpr78/21/1988Tdap Hqyldho0610/03/1987Hepatitis A (HAV) Vaccine (optional start 19+ years)1988Hepatitis B (HBV) Vaccine (1 of 3 - 19+ 3-dose series)1988Tetanus (Td or Tdap) Wknsgwv8010/03/1988Cholesterol 2004CRC Fmqmijmgi60/21/2015Cologuard (Stool DNA)2014FIT2014 Pneumococcal Vaccine(s) (50+ yrs) (1 of 1 - PCV)2019Shingles (RZV) Vaccine (1 of 2)2019COVID-19 Vaccine (1 - 2024- season)2025Influenza Vaccine (#1)2025 Insurance
--- OUTSIDE RECORDS SUMMARY | 2025-07-18 11:38 | XMS_ITS | Clinical Summary ---
Author Organization [facility] Address [address] [place] [address] Care Team Providers Care Land Conservation Specialist Name Role Phone Caden Mendez MD Primary Care Provider [phone] Allergies No known active allergies Medications MedicationSigDispense QuantityRefillsLast FilledStart DateEnd DateStatus traMADOL 50 mg tablet Take 50 mg by mouth every 6 hours as needed.Active pregabalin (LYRICA) 300 mg capsule Take 300 mg by mouth twice daily.Active DICLOFENAC SODIUM/MISOPROSTOL (ARTHROTEC 75 ORAL) Take by mouth twice daily.Active DULoxetine 60 mg capsule Take 60 mg by mouth twice daily.Active DIVALPROEX SODIUM (DIVALPROEX ORAL) Take 250 mg by mouth once daily.Active HYDROcodone-Acetaminophen (VICODIN) 5-300 mg Tab Take 1 tablet by mouth every 6 hours as needed.Active Family History Medical HistoryRelationCommentsCoronary Artery DiseaseFatherHypertensionFather BlindnessMaternal GrandmotherCataractMaternal GrandmotherGlaucomaMaternal GrandmotherGlaucomaMotherBlindnessPaternal GrandmotherCataractPaternal GrandmotherRelationStatusCommentsFatherMaternal GrandmotherMotherPaternal Grandmother Social History Tobacco UseTypesPacks/DayYears UsedDateSmoking Tobacco: NeverAlcohol UseStandard Drinks/WeekCommentsYes0 (1 standard drink = 0.6 oz pure alcohol)sparinglySex and Gender InformationValueDate RecordedSex Assigned at BirthNot on fileLegal Sex Male08/14/2012 10:16 AM ESTGender IdentityNot on fileSexual OrientationNot on file Last Filed Vital Signs Vital SignReadingTime TakenCommentsBlood Zvuqwrbo271/8314004/06/2012 12:54 PM EDT Hxtbf366504/06/2012 12:54 PM WIJNnivwxpjpgy42.1 ??C (98.7 ??F)04/06/2012 12:54 PM EDTRespiratory Rate--Oxygen Saturation--Inhaled Oxygen Concentration--Weight 107.5 kg (237 lb)04/06/2012 12:54 PM EDTHeight--Body Mass Index-- Plan of Treatment Health MaintenanceDue DateLast DoneCommentsAnxiety Bitddgrcl92/21/1988Depression Myugsknaw95/21/1988HIV Bcjeuetxm57/21/1988Hepatitis C Irperxkzi44/21/1988 DTaP,Tdap,Td Vaccine (1 - Tdap)1988Hepatitis B Vaccine (1 of 3 - 19+ 3- dose series)1988Lipid Ptsljyhiw26/21/2005CT Xxbvvsuzrdin33/21/2015 Cologuard (FIT-DNA)10/03/20143735Ydxzucjfmqw66/21/2015Colorectal Cancer Screening 2014Fecal Occult Blood2014Prostate Cancer Screening Discussion 10/03/20141348Bulvgmxaketqq69/21/2015Diabetes Hgwrnurie57/04/ Pneumococcal Vaccine: 50+ (1 of 1 - PCV)2019Shingrix Vaccine (1 of 2) 2019Covid-19 Vaccine (1 - 2024- season)2025Influenza Vaccine (#1) 2025 Procedures Procedure NamePriorityDate/TimeAssociated DiagnosisCommentsCOMPREHENSIVE METABOLIC OAWOPRvoxzof56/04/2012 1:47 PM EDT Myalgia from Last 3 Months or Most Recently Relevant to Health Maintenance Results * (ABNORMAL) COMP METABOLIC PANEL (05/17/2012 1:47 PM EDT)ComponentValueRef RangeTest MethodAnalysis TimePerformed AtPathologist SignatureProtein, Total 7.56.0 - 8.4 g/dLMER[facility] MAIN LABORATORYAlbumin4.83.5 - 5.0 g/dL [facility] LABORATORYCalcium9.68.5 - 10.5 mg/dLSELECT [facility] LABORATORYBilirubin, Total0.30.0 - 1.5 mg/dLSELECT [facility]ICAL [facility] LABORATORYAlkaline Xqxxgdbrdlp8715 - 150 U/LCPROT[facility] ZDW547 - 40 U/LC[facility] FXDHUPRWBVVgkarhn08(L)65 - 100 mg/dL [facility] XGGAWPQKJWHFP9103 - 25 mg/dLSELECT [facility] LABORATORYCreatinine1.000.70 - 1.40 mg/dLSELECT [facility] Mznwfs566977 - 146 mmol/LCOHIO [facility] MAIN LABORATORYPotassium3.53.5 - 5.0 mmol/LCOHIO VALLEY [facility] HOWNSTSKUZMpvarilh28057 - 110 mmol/LCPROT[facility] WZRFKKLJXDKT55916 - 32 mmol/LCO[facility] MAIN LABORATORYAnion Qlm336 - 15 mmol/LCO[facility] RTEWLQHQMJBUB284 - 50 U/LCPROT[facility] LABORATORYeGFR->60[facility] eGFR-All Other Races>60.[facility] LABORATORYComment: eGFR (Estimated GFR) Units of measure: mL/min/1.73 meters squared eGFR is derived from the reexpressed MDRD Study equation using the following parameters: serum creatinine, age, gender and race. The creatinine assay has been calibrated to be traceable to IDMS. An eGFR <60 mL/min/1.73m2 for >3 months is consistent with chronic kidney disease. Refer to KDOQI guidelines for clinical interpretation. Specimen (Source)Anatomical Location / LateralityCollection Method / Volume Collection TimeReceived TimeBlood specimen (specimen)BLOOD SPECIMEN / Unknown 05/17/2012 1:47 PM EDT05/17/2012 1:49 PM EDT Narrative Authorizing ProviderResult TypeResult StatusJoan Smith MDLABORATORYFinal ResultPerforming OrganizationAddressCity/State/ZIP CodePhone Number [facility] [address] [place] [address] from Last 3 Months or Most Recently Relevant to Health Maintenance Insurance Care Teams Team MemberRelationshipSpecialtyStart DateEnd Date Caden Mendez MD PCP - GeneralFamily Medicine03/08/12
--- OUTSIDE RECORDS SUMMARY | 2025-07-18 11:49 | XMS_ITS | CCD ---
Author Organization [facility] CliniSymd Care Team Providers Care Auto Brake Technician Name Role Phone UNKNOWN, PROVIDER Admitting Unavailable UNKNOWN, PROVIDER Attending Unavailable VENUS JAEGER Referring Unavailable VENUS JAEGER Primary Care Unavailable GA Procedure Practitioner Unavailab le UNKNOWN, PROVIDER Surgeon Unavailable GA Procedure Practitioner Unavailab le SANDRA BILL Surgeon Unavailable UNKNOWN, PROVIDER Admitting Unavailable UNKNOWN, PROVIDER Attending Unavailable VENUS JAEGER Referring Unavailable VENUS JAEGER Primary Care Unavailable GA Procedure Practitioner Unavailab le UNKNOWN, PROVIDER Surgeon [...] HOUGH Consulting Unavailable MAYRA BERNAL Consulting Unavailable Gieditis , Andrius Berkowitz Attending Unavailable Giedraitis , Andrius Woo Attending Unavailable Giedraitis , Andrius Woo Attending Unavailable Giedraitis , Andrius Woo Attending Unavailable Giedraitis , Andrius Woo Attending Unavailable CHINO Vallejo Attending Provider Venus Jaeger MD Primary Care Provider [phone] Yoni MAGANA, Trey Smith Attending Provider [phone] MARIANNA SUAREZ Referring Unavailable SUYAAP, SHIN Referring Unavailable SUYAPA, SHIN Referring Unavailable SELMA, SANDRINE Referring Unavailable MAI, WADEER Referring Unavailable SUYAPA, SHIN Referring Unavailable SUYAPA, SHIN Referring Unavailable HINDERS, MARILOU Referring Unavailable AMEGEE, TONIO Referring Unavailable AMEGEE, TONIO Referring Unavailable SELMA, SANDRINE Referring Unavailable AMEGEE, TONIO Referring Unavailable SELMA, SANDRINE Referring Unavailable SUYAPA, SHIN Referring Unavailable KATKOSERA Referring Unavailable HERNANDEZLICO Admitting Unavailable HERNANDEZ, LICO Attending Unavailable ARMANDO BERG Referring Unavailable SHAUNFABIOLA Admitting Unavailable AROLDO FABIAN Attending Unavailable SUYAPA, SHIN Referring Unavailable Venus Jaeger MD Primary Care Provider [phone] Venus Jaeger MD Primary Care Provider [phone] Jameel Coats DO Attending Provider Bonnie Ernandez MD Attending Provider Trey Vallejo Attending Unavailable Trey Vallejo Admitting Unavailable Bonnie Ernandez Attending Unavailable Bonnie Ernandez Admitting Unavailable Jameel Coats Attending Unavailable Jameel Coats Admitting Unavailable Venus Jaeger Primary Care Unavailable Venus Jaeger MD Primary Care Provider [phone] RUBÉN GEIGER Attending Unavailable RUBÉN GEIGER Attending Unavailable RUBÉN GEIGER Attending Unavailable HEATHER RAINEY Attending Unavailab le Allergies Allergy ClassificationReported Allergen(s)Allergy TypeDate of OnsetReaction(s) Facility (1 source)AspartameDrug Cqrcnio70-60-8313Orr [facility] Repository (1 source)avoid; Translations: [Unknown]Propensity to adverse reactions (disorder)66-95-1531Mbn [facility] Repository (1 source)vitamin B12; Translations: [cyanocobalamin]Drug AllergyUnknown (qualifier value)[facility] (1 source)Acetaminophen / HYDROcodoneDrug AllergyThe [facility] (1 source)CorticosteroidsDrug allergy (disorder)[facility] (1 source)fentaNYLDrug AllergyThe [facility] (1 source)Misc-Food; Translations: [Misc-Food]Food allergy (disorder)[facility] Repository (20 sources)fentaNYLDrug Llcemgg83-20-6597HtmejlrMYQV [facility] (20 sources)HYDROcodoneDrug Usdnvyn97-83-2085QmqegjjROWC [facility] (20 sources)Morphine And CodeineDrug Jplfjms87-12-8077UtrubydJWXA Healthcare (20 sources)OtherPropensity to adverse sdrswhkap40-11-3521XSBX [facility] (1 source)CorticosteroidsDrug allergy (disorder)45-69-5529LekbmshdtHolmes County [facility] Medications Current Medications MedicationDrug Class(es)DatesSig (Normalized)Sig (Original)acetaminophen 325 mg / HYDROcodone bitartrate 5 mg oral tablet (20 sources)Opioid AgonistStart: 59-66-4374ACDYLbafqmu-acetaminophen ([place]) 5- 325 MG tablet 03/20/2024 Activeamantadine hydrochloride 100 mg oral tablet (20 sources)Influenza A M2 Protein InhibitorStart: 05-07-2025 End: 01-76-0163ooni 1 tablet by mouth in the morningamantadine (Symmetrel) 100 MG tablet Indications: Excessive daytime sleepiness , Primary insomnia TAKE 1 TABLET (100 MG) BY MOUTH IN THE MORNING AND AT NOON 60 tablet 11 05/16/2025 05/16/2026 ActiveStart: 04-10-2024 End: 42-42-3392nfiz 1 tablet by mouth in the morningamantadine (Symmetrel) 100 MG tablet Indications: Excessive daytime sleepiness , Primary insomnia Take 1 tablet (100 mg) by mouth in the morning and at noon 180 tablet 3 04/10/2024 04/10/2025 Activeaspirin 81 mg delayed release oral tablet (20 sources)Platelet Aggregation Inhibitor, Nonsteroidal Anti-inflammatory Drug Start: 58-56-1699kdkn 1 tablet by mouth once dailyASPIRIN 81 MG chewable tablet Chew 81 mg in the morning. ActiveB-D 3CC LUER-SAYRA SYR 23GX1 23G X 1 3 ML misc (20 sources)Start: 46-02-7862T-D 3CC LUER-SAYRA SYR 23GX1 23G X 1 3 ML misc USE 1 SYRINGE INTRAMUSCULARLY ONCE A WEEK 05/18/2023ctiveBiotin (20 sources)Start: 05-84-9602TKEVWZ BIOTIN Start Date: 02/26/22 Status: Ordered Start: 49-68-7425pzcn 1 tablet by mouth once dailycelecoxib 100 mg oral capsule (20 sources)Nonsteroidal Anti-inflammatory DrugCeleBREX 100 MG capsule 1 (one) time each day at the same time Activecholecalciferol 0.125 mg oral capsule (20 sources)Vitamin DStart: 50-28-2873mpffeyynczitbah (Vitamin D-3) 125 MCG (5000 UT) capsule 03/15/2024 ActiveclonazePAM 1 mg oral tablet (20 sources)BenzodiazepineStart: 03-27-2024 End: 73-79-1690qhnu 1 tablet by mouth at bedtimeclonazePAM (KlonoPIN) 1 MG tablet Indications: Primary insomnia Take 1 tablet (1 mg) by mouth at bedtime 30 tablet 2 07/04/2024 ActiveStart: 61-26-5012RheyjvvGCH 0.5 mg Tab Refills(s) 0 Start Date: 02/26/22 Status: OrderedStart: 89-52-2348feqy 2 tablets by mouth at bedtimeStart: 31-88-6006yqpg 1 mg by mouth at bedtimeClonazepam Active 0.05 mg/kg PO Bedtime May 14, 2018 12:00amdiazePAM 5 mg oral tablet (5 sources)BenzodiazepineStart: 62-29-5405jtxl 1 tablet by mouth at bedtime diclofenac sodium 75 mg delayed release oral tablet (5 sources)Nonsteroidal Anti-inflammatory DrugStart: 62-49-7361gqmm 1 tablet by mouth twice dailydoxazosin 8 mg oral tablet (20 sources)alpha-Adrenergic BlockerStart: 08-72-0417vnipajlpy 8 mg oral tablet Refills(s) 0 Start Date: 02/26/22 Status: Ordereddoxepin hydrochloride 10 mg oral capsule (20 sources)Tricyclic AntidepressantStart: 07-56-1542alqdqez 10 mg Cap Refills(s) 0 Start Date: 02/26/22 Status: OrderedDULoxetine 60 mg delayed release oral capsule (20 sources)Serotonin and Norepinephrine Reuptake Inhibitortake 1 capsule by mouth in the morningDULoxetine (Cymbalta) [address] capsule Take 60 mg by mouth in the morning and 60 mg in the evening.Activeescitalopram 20 mg oral tablet (20 sources)Serotonin Reuptake Inhibitortake 1 tablet by mouth in the morning escitalopram (Lexapro) 20 MG tablet Take 20 mg by mouth in the morning. Active gabapentin 600 mg oral tablet (20 sources)Anti-epileptic AgentStart: 85-24-8223tdil 1 tablet by mouth three times dailyglycopyrrolate 1 mg oral tablet (20 sources)Start: 53-27-8591jjcc 1 tablet by mouth in the morningglycopyrrolate (Robinul) 1 MG tablet Take 1 mg by mouth in the morning and 1 mg before bedtime. 01/22/2023 ActiveStart: 26-73-7417wqwqjjcdqfdjmw 1 mg oral tablet Refills(s) 0 Start Date: 02/26/22 Status: OrderedhydrOXYzine pamoate 25 mg oral capsule (20 sources)AntihistamineStart: 36-31-8830reql 1 capsule by mouth once daily at bedtimehydrOXYzine pamoate (Vistaril) 25 MG capsule Indications: Primary insomnia TAKE ONE CAPSULE BY MOUTH ONCE DAILY AT BEDTIME 30 capsule 11 05/11/2024 Activelisinopril 10 mg oral tablet (5 sources)Angiotensin Converting Enzyme InhibitorStart: 79-17-3196qzld 1 tablet by mouth once dailymeclizine hydrochloride 25 mg chewable tablet (20 sources)AntiemeticMeclizine HCl 25 MG chewable tablet Chew 25 mg 1 (one) time each day at the same time. Activemelatonin 10 mg oral capsule (20 sources)Start: 07-14-2023 End: 92-47-1662tlsq 1 capsule by mouth at bedtimeMelatonin 10 MG capsule Indications: Primary insomnia Take 10 mg by mouth at bedtime 90 capsule 3 07/04/2025 ActiveMultiple Vitamins-Minerals (Multi For Him 50+) tablet (20 sources)Multiple Vitamins-Minerals (Multi For Him 50+) tablet as directed Orally Activeomeprazole 40 mg delayed release oral capsule (5 sources)Proton Pump InhibitorStart: 95-30-5959vyax 1 capsule by mouth twice dailyondansetron 4 mg oral tablet (20 sources)Serotonin-3 Receptor AntagonistStart: 11-14-2024 End: 00-25-6707adcp 2 tablets by mouth every eight hours for nauseaondansetron (Zofran) 4 MG tablet Indications: Projectile vomiting with nausea Take 2 tablets (8 mg)by mouth every 8 (eight) hours if needed for nausea or vomiting 30 tablet 3 11/14/2024 12/14/2024 ActiveStart: 21-49-8884vrobgwumycq ODT (Zofran-ODT) 4 MG disintegrating tablet 03/15/2024 ActiveStart: 17-00-0221jeyyjmvchnl (Zofran) 4 MG tablet Take 4 mg by mouth if needed. ActiveOXcarbazepine 300 mg oral tablet (20 sources)Anti-epileptic Agenttake 1 tablet by mouth at bedtimeOXcarbazepine (Trileptal) 300 MG tablet Take 300 mg by mouth at bedtime. Activeoxybates, calcium, magnesium, potassium and sodium, (Xywav) 500 MG/ML solution (2 sources)Start: 04-04-2025 End: 74-43-8262wctl 3.75 g by mouth at bedtimeoxybates, calcium, magnesium, potassium and sodium, (Xywav) 500 MG/ML solution Indications: Narcolepsy cataplexy syndrome (HCC) Take 3.75 g by mouth at bedtime 225 mL 2 04/04/2025 05/04/2025 Activepotassium chloride 10 meq extended release oral tablet (20 sources)Start: 76-66-0178nxfv 1 tablet by mouth at mealtimepotassium chloride CR (Klor-Con) 10 MEQ ER tablet Take 10 mEq by mouth in the morning. Take with food. . 02/22/2023 Activesennosides, senior care 8.6 mg oral tablet (20 sources)Start: 70-16-1317btbxh (Senokot) 8.6 MG tablet 03/15/2024 Active simvastatin 20 mg oral tablet (20 sources)HMG-CoA Reductase InhibitorStart: 75-63-5499gkmb 1 tablet by mouth once dailySUMAtriptan 100 mg oral tablet (20 sources)Serotonin-1b and Serotonin-1d Receptor AgonistStart: 45-34-4140zkvq 1 tablet by mouth onceSUMAtriptan (Imitrex) 100 MG tablet Take 100 mg by mouth 1 (one) time if needed. Active1 ml testosterone cypionate 200 mg/ml injection (20 sources)Androgentestosterone cypionate (Depo-Testosterone) 200 MG/ML injection Inject 200 mg into the shoulder, thigh, or buttocks every 14 (fourteen) days. Activethiamine 100 mg oral tablet (15 sources)Start: 07-05-2024 End: 28-16-9599ctmc 1 tablet by mouth once dailythiamine (Vitamin B-1) 100 MG tablet Indications: Excessive daytime sleepiness Take 1 tablet (100 mg) by mouth Daily 30 tablet 11 07/05/2024 07/05/2025 ActivetiZANidine 4 mg oral capsule (20 sources)Central alpha-2 Adrenergic AgonistStart: 86-68-4757aede 1 capsule by mouth at bedtimetake 1 tablet by mouth at bedtimetiZANidine (Zanaflex) 4 MG tablet Take 4 mg by mouth at bedtime. ActiveVit D3-Folic Zicc-I7-Y9-B12 (1 source)Start: 21-77-6601bfpg 1 tablet by mouth once dailyVit D3-Folic Tnry-V7-M4-B12 Active 1 TAB PO Daily May 14, 2018 12:00amVit D3-Folic Smki-Y4-W3-B12 2,000-800-0.32 unit-mcg-mg Tablet (4 sources)Start: 54-58-9416nhiu 1 tablet by mouth once dailyStart: 05-14-2018 take 1 tablet by mouth once dailyVit D3-Folic Rdom-Z4-E5-B12 2,000-800-0.32 unit-mcg-mg Tablet Active 1 TAB PO Daily May 13, 2018 11:00pm Completed/Discontinued Medications MedicationDrug Class(es)DatesSig (Normalized)Sig (Original)apixaban 5 mg oral tablet (3 sources)Factor Xa InhibitorStart: 64-65-3605Fvsnnzvb (Eliquis) 5 mg tablet Discontinued MG PO May 07, 2025 12:00amcarvedilol 25 mg oral tablet (20 sources)alpha-Adrenergic Jorge L, beta-Adrenergic BlockerStart: 02-26-2022 Carvedilol 25 mg tablet Discontinued MG PO May 07, 2025 12:00amStart: 26-16-2072kkzh 1 tablet by mouth twice dailycitalopram 40 mg oral tablet (20 sources)Serotonin Reuptake InhibitorStart: 94-37-4281Ubyhkaadpk 40 mg tablet Discontinued MG PO May 07, 2025 12:00amStart: 67-00-6640BfbyXP 20 MG tablet 1 (one) time each day at the same time. 06/02/2023 Activefurosemide 20 mg oral tablet (20 sources)Loop DiureticStart: 76-87-4730Zptjfgzevo 20 mg tablet Discontinued MG PO May 07, 2025 12:00ammodafinil 200 mg oral tablet (20 sources)Sympathomimetic-like AgentStart: 05-07-2025 End: 08-29-9680sxyz 1 tablet by mouth in the morningmodafinil (Provigil) 200 MG tablet Indications: Excessive daytime sleepiness , Obstructive sleep apnea TAKE 1 TABLET (200 MG) BY MOUTH IN THE MORNING AND AT NOON 60 tablet 2 05/16/2025 07/13/2025 Discontinued (Reorder)Start: 04-10-2024 End: 20-44-6350ahog 1 tablet by mouth in the morningmodafinil (Provigil) 200 MG tablet Indications: Excessive daytime sleepiness , Obstructive sleep apnea Take 1 tablet (200 mg) by mouth in the morning and at noon 180 tablet 01/03/2025 ActiveStart: 54-66-3768mmaxnzjax 200 mg Tab Refills(s) 0 Start Date: 02/26/22 Status: Orderedpantoprazole 40 mg delayed release oral tablet (20 sources)Proton Pump InhibitorStart: 87-91-8638Tjfaqhqzndmv 40 mg tablet,delayed release (DR/EC) Discontinued MG PO May 07, 2025 12:00am Problems Active Problems Problem ClassificationProblemDateDocumented DateEpisodic/ChronicAnxiety disorders (20 sources)Anxiety disorder, unspecified; Translations: [Anxiety disorder] Onset: 367214-67-0338JhbaicpBiyvbjfhh and vision defects (1 source)Unspecified visual loss; Translations: [UNSPECIFIED VISUAL LOSS]Onset: 08-12-7786TkekpwtKjawwzkhti heart failure; nonhypertensive (20 sources)Chronic combined systolic and diastolic heart failure; Translations: [Chronic combined systolic (congestive) and diastolic (congestive) heart failure]Onset: 602346-67-5806GyniuvjJukznzna, dementia, and amnestic and other cognitive disorders (20 sources)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; Translations: [Unspecified mental disorder due to known physiological condition]Onset: 981220-84-7830YsmcmjyNsrnucjw mellitus without complication (20 sources)Type 2 diabetes mellitus without complications; Translations: [Diabetes mellitus without complication]Onset: hronic Disorders of lipid metabolism (1 source)Pure hypercholesterolemia, unspecified; Translations: [PURE HYPERCHOLESTEROLEMIA UNSPEC]Onset: 13-36-4655DotboijJ Codes: Place of occurrence (2 sources)Unspecified place in unspecified non-institutional (private) residence as the place of occurrence of the external cause; Translations: [Unspecified place in unspecified non-institutional (private) residence as the place of occurrence of the external cause]Onset: 01-63-9325CcvdcgbsZofgkwcmch disorders (1 source)Gastro-esophageal reflux disease without esophagitis; Translations: [GERD WITHOUT ESOPHAGITIS]Onset: 54-70-3268PudzdetFthtagydf hypertension (20 sources)Essential (primary) hypertension; Translations: [Hypertensive disorder]Onset: 437738-63-7771IorkynvYjazwcxt; including migraine (20 sources)Migraine; Translations: [Migraine, unspecified, not intractable, without status migrainosus]Onset: 137569-16-3284TyjyhipUqbroapcxym of prostate (1 source)Benign prostatic hypertrophy without outflow obstruction; Translations: [Benign prostatic hyperplasia without lower urinary tract symptoms]Onset: 20-16-9333PsuddhnIbeustjdbugt with complications and secondary hypertension (15 sources)Hypertensive heart failure; Translations: [Hypertensive heart disease with heart failure]Onset: 127138-07-4215OscpjkiPswiqvblszbqq mental health disorders (20 sources)Primary insomnia; Translations: [Primary insomnia]Onset: 03-11-2023 66-71-0552TcmsqlzYfas disorders (1 source)Major depressive disorder, single episode, unspecified; Translations: [MARITZA DEPRESS D/O SINGLE EPIS UNS]Onset: 42-83-3523IbghwseXlgp disorders (1 source)Mood disorders; Translations: [DEPRESSION UNSPECIFIED]Onset: 20-19-1383Qceaxg and vomiting (1 source)Projectile vomiting; Translations: [Projectile vomiting]11-14-2024 EpisodicOsteoarthritis (20 sources)Unspecified osteoarthritis, unspecified site; Translations: [Arthritis of right acromioclavicular joint]Onset: hronic Other aftercare (1 source)watermaster (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; Translations: [STORE LEAD 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 ASPIRIN]Onset: 59-26-8497XlxtopbwZewwf aftercare (1 source)Other intermediate card tender (current) drug therapy; Translations: [OTH STORE LEAD CURRENT DRUG THERAPY]Onset: 11-46-5371UeuopwaoCtwig bone disease and musculoskeletal deformities (3 sources)Hypertrophy of bone; Translations: [Hypertrophy of bone, unspecified tibia and fibula]96-83-2202JxctvfyvEoxoq bone disease and musculoskeletal deformities (1 source)Hypertrophy of bone, unspecified tibia and fibula; Translations: [Hypertrophy of bone, unspecified tibia and fibula]Onset: 94-43-7011Homvzjqn Other connective tissue disease (3 sources)Pain in right forearm; Translations: [PAIN IN RIGHT FOREARM]Onset: 21-50-8872OwfevypgNnzdn connective tissue disease (1 source)Arthrodesis status; Translations: [ARTHRODESIS STATUS]Onset: 14-53-2349KfkrlyntRznbb connective tissue disease (2 sources)Muscle weakness of upper limb; Translations: [Other symptoms and signs involving the musculoskeletal system]11-84-2790KatfxuscWeabjen on above: Problem List clean-up per request of Phys. EHR CmteOther connective tissue disease (3 sources)Pain in right lower limb; Translations: [Pain in right leg]05-07-2025 EpisodicOther diseases of veins and lymphatics (1 source)Varicocele; Translations: [Scrotal varices]Onset: 10-50-7396Pskqcunm Other ear and sense organ disorders (1 source)Unspecified hearing loss, unspecified ear; Translations: [UNS HEARING LOSS UNSPECIFIED EAR]Onset: 90-84-3061RjmhglwZaors endocrine disorders (4 sources)Testicular hypofunction; Translations: [TESTICULAR HYPOFUNCTION] Onset: 54-11-6026LuczfivAvnvp inflammatory condition of skin (1 source)Psoriasis, unspecified; Translations: [PSORIASIS UNSPECIFIED]Onset: 91-22-0127MpezmoyXgskc injuries and conditions due to external causes (1 source)Unspecified injury of head, initial encounter; Translations: [UNSPECIFIED INJURY HEAD INITIAL ENC]Onset: 57-32-2134LwwlzpzrBuibu male genital disorders (20 sources)Secondary erectile dysfunction; Translations: [Male erectile dysfunction, unspecified]Onset: 222357-61-8422AqhtnakMcrpp male genital disorders (1 source)Hydrocele of testis; Translations: [Hydrocele, unspecified]Onset: 40-70-9680ZejwogebQntgt nervous system disorders (1 source)Narcolepsy without cataplexy; Translations: [NARCOLEPSY WITHOUT CATAPLEXY]Onset: 30-93-0522WahedbkKfphc nervous system disorders (1 source)Other chronic pain; Translations: [OTHER CHRONIC PAIN]Onset: 23-59-7339JrewlngDztju nervous system disorders (1 source)Polyneuropathy, unspecified; Translations: [POLYNEUROPATHY UNSPECIFIED]Onset: 78-61-9872KksaaloGkiup nervous system disorders (20 sources)Carpal tunnel syndrome of right wrist; Translations: [Carpal tunnel syndrome, right upper limb]Onset: 397128-80-1078AufkomcEipvy nervous system disorders (20 sources)Lesion of ulnar nerve, right upper limb; Translations: [Lesion of ulnar nerve]Onset: 553543-25-6160ZvsusraTadju nervous system disorders (20 sources)Chronic pain; Translations: [Other chronic pain]Onset: 12-30-2017 81-39-5129SzzeibxQvxju nervous system disorders (20 sources)Ulnar nerve entrapment; Translations: [Lesion of ulnar nerve, unspecified upper limb]Onset: 602239-02-4208XiwmoulDirkj nervous system disorders (20 sources)Cataplexy and narcolepsy; Translations: [Narcolepsy with cataplexy] Onset: 119636-68-2654DzeyihxCnbmr nutritional; endocrine; and metabolic disorders (15 sources)Obesity; Translations: [Obesity, unspecified]Onset: 09-24-2024 11-23-6623TgqixctNraa-; endo-; and myocarditis; cardiomyopathy (except that caused by tuberculosis or sexually transmitted disease) (15 sources)Cardiomyopathy; Translations: [Other cardiomyopathies]Onset: 051638-27-0272AqgurscTiekzopo codes; unclassified (1 source)Sleep apnea, unspecified; Translations: [SLEEP APNEA UNSPECIFIED] Onset: 70-87-0447DnawywuZaigymdh codes; unclassified (20 sources)Daytime somnolence; Translations: [Other hypersomnia]Onset: 293121-95-2127BvezaqgSrafiovx codes; unclassified (20 sources)Obstructive sleep apnea syndrome; Translations: [Obstructive sleep apnea (adult) (pediatric)]Onset: 936413-98-9646MqfjdecYrcjovjf codes; unclassified (2 sources)Obstructive sleep apnea (adult) (pediatric); Translations: [Obstructive sleep apnea (adult) (pediatric)]Onset: 82-56-3834GprcovjGlcwkjku codes; unclassified (5 sources)Other hypersomnia; Translations: [Hypersomnia, unspecified]Onset: 325241-22-3313HarfdtbGsxoozfoetj; intervertebral disc disorders; other back problems (20 sources)Cervical disc disorder; Translations: [Cervical disc disorder, unspecified, unspecified cervical region]Onset: hronic Superficial injury; contusion (2 sources)Contusion of right forearm, initial encounter; Translations: [Contusion of other part of head, initial encounter]Onset: 50-44-1792Efzylxjw Unclassified (1 source)CONTACT W/AND (SUSP) EXPOS COVID-19; Translations: [CONTACT W/AND (SUSP) EXPOS COVID-19]Onset: 01-19-2022 Past or Other Problems Problem ClassificationProblemDateDocumented DateEpisodic/ChronicComa; stupor; and brain damage (20 sources)Clouded consciousness; Translations: [Stupor]Onset: 03-03-2012 81-20-6755YytwhshdK Codes: Fall (18 sources)Unspecified fall, initial encounter; Translations: [Fall in home] Onset: 11-38-3353AjzvppzrH Codes: Natural/environment (1 source)Exposure to other specified factors, initial encounter; Translations: [EXPOSURE OTHER SPEC FACTORS INITIAL]Onset: 91-69-1694SgzlzudiUlxqgmrf of lower limb (20 sources)Unspecified fracture of shaft of right tibia, initial encounter for closed fracture; Translations: [Unspecified fracture of shaft of right fibula, initial encounter for closed fracture]Onset: 25-49-8992BkgmnzdaMhkalfwom and duodenitis (20 sources)Gastritis; Translations: [Gastritis, unspecified, without bleeding] Onset: 481158-03-8282IswxvkicSwkpm valve disorders (20 sources)Systolic murmur; Translations: [Cardiac murmur, unspecified]Onset: 583077-92-6675AqusfyzvYbneqfojsgnse and screening for infectious disease (1 source)Encounter for immunization; Translations: [ENCOUNTER FOR IMMUNIZATION] Onset: 92-08-8079XtcuhjiuYzsvqqdmivdm conditions of male genital organs (4 sources)Inflammatory disorders of scrotum; Translations: [INFLAMMATORY DISORDERS OF SCROTUM]Onset: 54-97-3253JuctxufjEkndmlb and fatigue (20 sources)Fatigue; Translations: [Other fatigue]Onset: EpisodicNoninfectious gastroenteritis (20 sources)Gastroenteritis; Translations: [Noninfective gastroenteritis and colitis, unspecified]Onset: 442069-84-9019ZlqupsrdNyhaqpnaaxm chest pain (20 sources)Chest discomfort; Translations: [Other chest pain]Onset: 11-30-2011 02-87-1157PxeglogqPknx wounds of extremities (19 sources)Puncture wound without foreign body, left foot, initial encounter; Translations: [Open wound of left great toe]Onset: 61-21-0313PjhmpdtoYdsaj circulatory disease (20 sources)Capillary hemangioma; Translations: [Nevus, non-neoplastic]Onset: 765233-19-6893IgwffoymPkjny connective tissue disease (20 sources)Spasm of cervical paraspinous muscle; Translations: [Other muscle spasm]Onset: 634472-57-2121XssdjsdrHpzqa connective tissue disease (20 sources)Bursitis; Translations: [Bursopathy, unspecified]Onset: 02-27-2011 55-10-0342UsqisvgyQphtr connective tissue disease (20 sources)Foot pain; Translations: [Pain in unspecified foot]Onset: 10-07-2012 67-58-6361GzumdvynZntec connective tissue disease (20 sources)Muscle pain; Translations: [Myalgia, unspecified site]Onset: 501421-98-6571VcjaevqpUerne connective tissue disease (20 sources)Impingement syndrome of shoulder region; Translations: [Impingement syndrome of unspecified shoulder]Onset: 725668-25-4531PxdqldvhPqzwx connective tissue disease (20 sources)Lateral epicondylitis; Translations: [Lateral epicondylitis, unspecified elbow]Onset: 691328-96-9305RuxosjdbUawep connective tissue disease (20 sources)Other symptoms and signs involving the musculoskeletal system; Translations: [Other musculoskeletalsymptoms referable to limbs]Onset: [id number]kghv on above:Problem List clean-up per request of Phys. EHR CmteOther lower respiratory disease (20 sources)Dyspnea; Translations: [Dyspnea, unspecified]Onset: 11-30-2011 37-47-7287EkztomylZwizu nervous system disorders (20 sources)Numbness of upper limb; Translations: [Anesthesia of skin]Onset: 432112-89-5472RobmodgxFcvkqkf on above:Problem List clean-up per request of Phys. EHR CmteOther non-traumatic joint disorders (20 sources)Ankle edema; Translations: [Effusion, unspecified ankle]Onset: 587833-79-4921OveafenbOunkn non-traumatic joint disorders (20 sources)Joint pain; Translations: [Pain in unspecified joint]Onset: 637821-12-8911AmbiiqbiNziyq screening for suspected conditions (not mental disorders or infectious disease) (20 sources)Encounter for screening for malignant neoplasm of prostate; Translations: [Elevated prostate specific antigen [PSA]]Onset: 03-13-2022 EpisodicOther skin disorders (20 sources)Excessive sweating; Translations: [Generalized hyperhidrosis]Onset: 680119-24-7513VbwvlfxtIrfie skin disorders (20 sources)Senile hyperkeratosis; Translations: [Actinic keratosis]Onset: 150856-43-6715EdccjvduYwfmc skin disorders (20 sources)Hyperhidrosis; Translations: [Generalized hyperhidrosis]Onset: 164073-09-0388AovukhguInypx upper respiratory infections (20 sources)Upper respiratory infection; Translations: [Acute upper respiratory infection, unspecified]Onset: 248938-14-4152BwvohtypZmbz and subcutaneous tissue infections (20 sources)Cellulitis; Translations: [Cellulitis, unspecified]Onset: 03-31-2013 60-09-1186LrosudkdBfwxjcrypjc; intervertebral disc disorders; other back problems (20 sources)Cervical disc prolapse with radiculopathy; Translations: [Cervical disc disorder with radiculopathy, unspecified cervical region]Onset: 10-11-2018 59-45-5751FfbcplnlWolqrbl on above:Problem List clean-up per request of Phys. EHR CmteUrinary tract infections (20 sources)Urinary tract infectious disease; Translations: [Urinary tract infection, site not specified]Onset: 291275-82-4781Qzivpbre Results Test NameValueInterpretationReference RangeFacilityCT lower leg RT wo pool 08-98-6059HR lower leg RT wo [facility] [place] [address] CT Scan Report Signed Patient: Matty Garces MR#: [id number] : 1970 Acct:[id number] Age/Sex: 54 / M ADM Date: 05/29/25 Loc: CT Room: Type: [facility] CLI Attending Dr: Jameel Coats DO [...] Irving M.D. 05/29/2025 11:40 PM Dictation Location: [place] [address] Transcribed By: [facility] 05/29/25 2340 Dictated By: Francis Irving II, MD 05/29/25 6773 Signed By: 05/29/25 2340[facility] GroupECG 12-LEADon 29-06[place] [address] Electrocardiograph Report Signed Patient: MATTY GARCES MR#: [id number] : 1970 Acct:[id number] Age/Sex: 54 / M ADM Date: 03/05/25 Loc: [place] 221-[address]: Venus Jaeger M.D. 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 Measurements Intervals [place] Rate: 76 P: 60 GA: 178 QRS: 69 QRSD: 100 T: 46 QT: 406 QTc: 437 Interpretive Statements 1100 Sinus rhythm 0102 ARTIFACT PRESENT 9110 normal ECG Compared to ECG 09/23/2024 05:51:07 No significant changes Electronically Signed On 03-06-2025 9:29:34 EDT by RAMIRO WALLS M.D. Dictated By: RAMIRO WALLS Signed By: 03/06/2529 DD/ 06 TD/TT: Contracts Attorney:TBHRadiology, Radiologist, - 03/06/[address] [address] Electrocardiograph Report Signed Patient: MATTY GARCES MR#: [id number] : 1970 Acct:[id number] Age/Sex: 54 / M ADM Date: 03/05/25 Loc: [place] 221-[address]: Venus Jaeger M.D. 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 Measurements Intervals [place] Rate: 76 P: 60 GA: 178 QRS: 69 QRSD: 100 T: 46 QT: 406 QTc: 437 Interpretive Statements 1100 Sinus rhythm 0102 ARTIFACT PRESENT 9110 normal ECG Compared to ECG 09/23/2024 05:51:07 No significant changes Electronically Signed On 03-06-2025 9:29:34 EDT by RAMIRO WALLS M.D. Dictated By: RAMIRO WALLS Signed By: 03/06/25928 DD/ 06 TD/TT: Contracts Attorney: JEWELS Packer 12-LEADOrdered By: Radiologist Radiology on 30-86-9467[facility] Work Phone: ECG 12-LEADon 52-48-8162Fduszgbhh Study observation (narrative)JEWELS LandryBASIC METABOLIC PANELon 75-02-0704Gxdxk gap [Moles/Vol]8 mmol/LNormal7-20UnBellevue HospitalComment on above:Performed By: #### [id number] #### [facility] ([facility]) [address], [place] [address]Deeqryz [Mass/Vol]9.7 mg/dLNormal8.6-10.3UnBellevue HospitalComment on above:Performed By: #### [id number] #### [facility] ([facility]) [address], [place] [address]Qifsicdj [Moles/Vol]97 mmol/PUsh56-279VksgqsduydBellevue HospitalComment on above:Performed By: #### [id number] #### [facility] ([facility]) [address] [place] [address]PY6 [Moles/Vol]35 mmol/OMwaj59-64AeueojxszvBellevue HospitalComment on above:Performed By: #### [id number] #### [facility] ([facility]) [address] [place] [address]Qvnvnnzpug [Mass/Vol]1.02 mg/dLNormal0.70-1.30UnBellevue HospitalComment on above:Performed By: #### [id number] #### [facility] ([facility]) [address] [place] [address]RAOIPTSJJN FILTRATION RATE ML/MIN/1.73 SQ M.VPBPJLRWC18.8 mL/min/1.73m*2Normal>60.0UnBellevue HospitalComment on above: Result Comment: [facility]???s estimated glomerular filtration rate (eGFR) will [...] affect anyone group of individuals.Performed By: #### [id number] #### [facility] ([facility]) [address] [place] [address]Axzvoci [Mass/Vol]80 mg/cHVsbhuc64-366PbviutdckxBellevue HospitalComment on above:Performed By: #### [id number] #### [facility] ([facility]) [address] [place] [address]Aklwxqbhe [Moles/Vol]4.2 mmol/LNormal3.5-5.1UnBellevue HospitalComment on above:Performed By: #### [id number] #### [facility] ([facility]) [address] [place] [address]Nygkbs [Moles/Vol]136 mmol/SPjorti989-447QshlntxwhlBellevue HospitalComment on above:Performed By: #### [id number] #### [facility] ([facility]) [address] [place] [address]Pbjt nitrogen [Mass/Vol]8 mg/dLNormal7-25UnBellevue HospitalComment on above:Performed By: #### [id number] #### [facility] ([facility]) [address] [place], [place] [address]CHYT NITROGEN/CREATININE (MASS RATIO) IN SER/PLAS7.8Normal [facility] HospitalComment on above:Performed By: #### [id number] #### [facility] ([facility]) [address] [place], [place] [address]UUQ WITH AUTO DIFFERENTIALon 12-15-7855Uxezkgjsk (Bld) [#/Vol] 0.06 10*3/uLNormal0.00-0.20UnBellevue HospitalComment on above: Performed By: #### [id number] ####[facility] ([facility])[address] [place], [place] [address]Tzfjyfkgk/100 WBC (Bld)0.9 %Normal0.0-1.0UnBellevue HospitalComment on above:Performed By: #### [id number] ####[facility] ([facility])[address] [place], [place] [address]Yboaxfaekkb (Bld) [#/Vol]0.21 10*3/uL Normal0.00-0.50UnBellevue HospitalComment on above:Performed By: #### [id number] ####[facility] ([facility])[address] [place] [address] Eosinophils/100 WBC (Bld)3.0 %Normal0.0-6.0UnBellevue Hospital Comment on above:Performed By: #### [id number] ####[facility] ([facility])[address] [place], [place] [address]Nekcrwappph distribution width (RBC) [Ratio]16.7 % High11.5-15.0UnBellevue HospitalComment on above:Performed By: #### [id number] ####[facility] ([facility])[address] [place] [address] ERYTHROCYTE MEAN CORPUSCULAR HEMOGLOBIN CONCENTRATION (G/DL) BY UKLHSYOXC95.9 g/dLLow32.0-35.0UnBellevue HospitalComment on above:Performed By: #### [id number] ####[facility] ([facility])[address] [place], [place] [address]Dwbydvliir (Bld) [Volume fraction]44.5 %Lwdkeb39.0-55.0UnBellevue HospitalComment on above:Performed By: #### [id number] ####[facility] ([facility])[address] [place], [place] [address]Ptkeizffkb (Bld) [Mass/Vol]13.3 g/dL Tddfto00.0-17.0UnBellevue HospitalComment on above:Performed By: #### [id number] ####[facility] ([facility])[address] [place] [address] Immature granulocytes (Bld) [#/Vol]0.11 10*3/uLNormal0.00-0.20UnBellevue HospitalComment on above:Performed By: #### [id number] ####[facility] ([facility])[address] [place], [place] [address]Hagbnvyq granulocytes/100 WBC (Bld)1.6 %High0.0-1.0UnBellevue HospitalComment on above: Performed By: #### [id number] ####[facility] ([facility])[address] [place], [place] [address]Lvpexybfdot (Bld) [#/Vol]0.91 10*3/uLLow1.20-4.00UnBellevue HospitalComment on above:Performed By: #### [id number] ####[facility] ([facility])[address] [place], [place] [address]Iuqvppavdny/100 WBC (Bld) 12.9 %Low20.0-45.0UnBellevue HospitalComment on above:Performed By: #### [id number] ####[facility] ([facility])[address] [place], [place] [address]EVL (RBC) [Entitic mass]26.9 pgLow27.0-33.0UnBellevue HospitalComment on above:Performed By: #### [id number] ####[facility] ([facility])[address] [place], [place] [address]IKI (RBC) [Entitic vol]89.9 fLNormal 82.0-98.0UnBellevue HospitalComment on above:Performed By: #### [id number] ####[facility] ([facility])[address] [place] [address] Monocytes (Bld) [#/Vol]0.65 10*3/uLNormal0.10-1.00UnBellevue HospitalComment on above:Performed By: #### [id number] ####[facility] ([facility])[address] [place], [place] [address]Yhijqkhuy/100 WBC (Bld)9.2 %Normal 5.0-12.0UnBellevue HospitalComment on above:Performed By: #### [id number] ####[facility] ([facility])[address] [place] [address] Neutrophils (Bld) [#/Vol]5.11 10*3/uLNormal1.60-7.60UnBellevue HospitalComment on above:Performed By: #### [id number] ####[facility] ([facility])[address] [place], [place] [address]Crybmvkuewb/100 WBC (Bld)72.4 %High 40.0-72.0UnBellevue HospitalComment on above:Performed By: #### [id number] ####[facility] ([facility])[address] [place] [address]VXUA (PER 100 WBCS) BY AUTOMATED COUNT0.0 %Wouctk1SxlaizdalfBellevue Hospital Comment on above:Performed By: #### [id number] ####[facility] ([facility])[address] [place] [address]VZXQYGLNI (10*3/UL) IN BLOOD AUTOMATED [id number] 10*3/sLZzmhtp612-861HrngfuvpxmBellevue HospitalComment on above: Performed By: #### [id number] ####[facility] ([facility])[address] [place], [place] [address]VIP (Bld) [#/Vol]4.95 10*6/uLNormal4.20-5.70UnBellevue HospitalComment on above:Performed By: #### [id number] ####[facility] ([facility])[address] [place] [address]NRO (Bld) [#/Vol]7.05 10*3/uLNormal4.00-10.60UnBellevue HospitalComment on above: Performed By: #### [id number] ####[facility] ([facility])[address] [place], [place] [address]FFRPP METABOLIC PANELon 12-76-9941Ltkzx gap [Moles/Vol]9 mmol/LNormal7-20UnBellevue HospitalComment on above:Performed By: #### [id number] #### [facility] ([facility]) [address] [place], [place] [address]Wppkcsa [Mass/Vol]9.5 mg/dLNormal8.6-10.3UnBellevue HospitalComment on above:Performed By: #### [id number] #### [facility] ([facility]) [address] [place], [place] [address]Ejsszpox [Moles/Vol]96 mmol/MGjc10-032IownytystjBellevue HospitalComment on above:Performed By: #### [id number] #### [facility] ([facility]) [address] [place] [address]DY4 [Moles/Vol]34 mmol/ULurq65-36CwymjwmjauBellevue HospitalComment on above:Performed By: #### [id number] #### [facility] ([facility]) [address] [place] [address]Xtjffnzzfn [Mass/Vol]0.93 mg/dLNormal0.70-1.30UnBellevue HospitalComment on above:Performed By: #### [id number] #### [facility] ([facility]) [address] [address]KEVOOQMAND FILTRATION RATE ML/MIN/1.73 SQ M.RJGFYHHQL44.0 mL/min/1.73m*2Normal>60.0UnBellevue HospitalComment on above: Result Comment: [facility]???s estimated glomerular filtration rate (eGFR) will [...] affect anyone group of individuals.Performed By: #### [id number] #### [facility] ([facility]) [address] [place] [address]Dxpeowp [Mass/Vol]85 mg/rQRkxgml23-795AkeigskfveBellevue HospitalComment on above:Performed By: #### [id number] #### [facility] ([facility]) [address] [place] [address]Fogkggnuh [Moles/Vol]4.0 mmol/LNormal3.5-5.1UnBellevue HospitalComment on above:Performed By: #### [id number] #### [facility] ([facility]) [address] [place] [address]Nbxlem [Moles/Vol]135 mmol/YDyu662-165SuwcduovxjBellevue HospitalComment on above:Performed By: #### [id number] #### [facility] ([facility]) [address] [place], [place] [address]Auaw nitrogen [Mass/Vol]8 mg/dLNormal7-25UnBellevue HospitalComment on above:Performed By: #### [id number] #### [facility] ([facility]) [address] [place], [place] [address]WMRF NITROGEN/CREATININE (MASS RATIO) IN SER/PLAS8.6Normal [facility] HospitalComment on above:Performed By: #### [id number] #### [facility] ([facility]) [address] [place], [place] [address]W-NDEUWTFR PROTEINon 5C REACTIVE PROTEIN (MG/L) IN SER/PLAS11.5 mg/LHigh<=5.0UnBellevue HospitalComment on above: Result Comment: Testing performed using a new methodology, turbidimetry. Normal ranges have been updated. Old normal range was <8 mg/L.Performed By: #### [id number] #### [facility] ([facility]) [address] [place], [place] [address]UND WITH AUTO DIFFERENTIALon 98-40-4258Xhslkbtwu (Bld) [#/Vol] 0.08 10*3/uLNormal0.00-0.20UnBellevue HospitalComment on above: Performed By: #### [id number] ####[facility] ([facility])[address] [place], [place] [address]Ltefclidb/100 WBC (Bld)1.1 %High0.0-1.0UnBellevue HospitalComment on above:Performed By: #### [id number] ####[facility] ([facility])[address] [place], [place] [address]Fedbxsswxze (Bld) [#/Vol]0.19 10*3/uL Normal0.00-0.50UnBellevue HospitalComment on above:Performed By: #### [id number] ####[facility] [place] [address] Eosinophils/100 WBC (Bld)2.7 %Normal0.0-6.0[facility] Comment on above:Performed By: #### [id number] ####[facility] ([facility])[address] [place], [place] [address]Jqinedwhjbw distribution width (RBC) [Ratio]16.6 % High11.5-15.0UnBellevue HospitalComment on above:Performed By: #### [id number] ####[facility] ([facility])[address] [place] [address] ERYTHROCYTE MEAN CORPUSCULAR HEMOGLOBIN CONCENTRATION (G/DL) BY LZFXZWGIO71.1 g/dLLow32.0-35.0UnBellevue HospitalComment on above:Performed By: #### [id number] ####[facility] ([facility])[address] [place], [place] [address]Wzypdbhroe (Bld) [Volume fraction]44.5 %Ynyxya12.0-55.0UnBellevue HospitalComment on above:Performed By: #### [id number] ####[facility] (BEAKER)[address] [place], [place] [address]Dwdppcgwyr (Bld) [Mass/Vol]13.4 g/dL Gsirbu23.0-17.0UnBellevue HospitalComment on above:Performed By: #### [id number] ####[facility] ([facility])[address] [place] [address] Immature granulocytes (Bld) [#/Vol]0.10 10*3/uLNormal0.00-0.20UnBellevue HospitalComment on above:Performed By: #### [id number] ####[facility] ([facility])[address] [place], [place] [address]Phuteslh granulocytes/100 WBC (Bld)1.4 %High0.0-1.0UnBellevue HospitalComment on above: Performed By: #### [id number] ####[facility] ([facility])[address] [place], [place] [address]Rvqznkacpdz (Bld) [#/Vol]0.90 10*3/uLLow1.20-4.00UnBellevue HospitalComment on above:Performed By: #### [id number] ####[facility] ([facility])[address] [place], [place] [address]Zkipsxepnep/100 WBC (Bld) 12.8 %Low20.0-45.0UnBellevue HospitalComment on above:Performed By: #### [id number] ####[facility] ([facility])[address] [place], [place] [address]AIY (RBC) [Entitic mass]26.9 pgLow27.0-33.0UnBellevue HospitalComment on above:Performed By: #### [id number] ####[facility] ([facility])[address] [place], [place] [address]JYC (RBC) [Entitic vol]89.4 fLNormal 82.0-98.0UnBellevue HospitalComment on above:Performed By: #### [id number] ####[facility] ([facility])[address] [place] [address] Monocytes (Bld) [#/Vol]0.60 10*3/uLNormal0.10-1.00UnBellevue HospitalComment on above:Performed By: #### [id number] ####[facility] ([facility])[address] [place] [place], [place] [address]Jolvliluv/100 WBC (Bld)8.5 %Normal 5.0-12.0UnBellevue HospitalComment on above:Performed By: #### [id number] ####[facility] ([facility])[address] [place] [address] Neutrophils (Bld) [#/Vol]5.17 10*3/uLNormal1.60-7.60UnBellevue HospitalComment on above:Performed By: #### [id number] ####[facility] ([facility])[address] [place] [address]Xatiztrcfyq/100 WBC (Bld)73.5 %High 40.0-72.0UnBellevue HospitalComment on above:Performed By: #### [id number] ####[facility] ([facility])[address] [place] [address]MWEX (PER 100 WBCS) BY AUTOMATED COUNT0.0 %Apvnto7EbsrlvyfscBellevue Hospital Comment on above:Performed By: #### [id number] ####[facility] ([facility])[address] [place] [address]KNBRKDZPF (10*3/UL) IN BLOOD AUTOMATED GDIZC642 10*3/xVRcydwe883-491DydhnxtqmiBellevue HospitalComment on above: Performed By: #### [id number] ####[facility] ([facility])[address] [place] [address]RHN (Bld) [#/Vol]4.98 10*6/uLNormal4.20-5.70UnBellevue HospitalComment on above:Performed By: #### [id number] ####[facility] ([facility])[address] [place] [address]JRO (Bld) [#/Vol]7.04 10*3/uLNormal4.00-10.60UnBellevue HospitalComment on above: Performed By: #### [id number] ####[facility] ([facility])[address] [place], [place] [address]RQWKOYCSKBGVK RATEon 69-87-3649JXFHSJKSDGNGL RATE, NDRTOKJZAYT74 mm/hrHigh<20UnBellevue HospitalComment on above: Performed By: #### [id number] #### [facility] ([facility] [address] [place] [address]NTQAXBMXVT, PEAKon 43-51-8500BVHADZFCSN (UG/ML) IN SER/PLAS - PEAK23.0 ug/oTKxitex98.0-50.0UnBellevue HospitalComment on above:Performed By: #### [id number] #### [facility] ([facility]) [address] [place] [address]CIANEPGNLO, TROUGHon 32-14-7229GOLSOUIPES (UG/ML) IN SER/PLAS - VEJFSD35.2 ug/mLNormal5.0-20.0UnBellevue HospitalComment on above:Performed By: #### [id number] #### [facility] ([facility]) [address] [place] [address]uq 87-05-830901Gfpgd with facility and patient was admitted back here at [facility] yesterday. They will call back if they need any orders.NormalUnBellevue Hospital BASIC METABOLIC PANELon 72-26-6212Giecg gap [Moles/Vol]9 mmol/LNormal7-[address] [facility] HospitalComment on above:Performed By: #### [id number] ####[facility] ([facility])[address] [place], [place] [address]Xzapbzw [Mass/Vol]9.4 mg/dLNormal8.6-10.3UnBellevue HospitalComment on above:Performed By: #### [id number] ####[facility] ([facility])[address] [place], [place] [address]Vbjscoyi [Moles/Vol]96 mmol/XYji27-729PtqgncbvfxBellevue HospitalComment on above:Performed By: #### [id number] ####[facility] ([facility])[address] [place], [place] [address]TI5 [Moles/Vol]36 mmol/WEjqk81-[address] [facility] HospitalComment on above:Performed By: #### [id number] ####[facility] ([facility])[address] [place], [place] [address]Wdtlfvgnyp [Mass/Vol]0.98 mg/dLNormal0.70-1.30UnBellevue HospitalComment on above:Performed By: #### [id number] ####[facility] ([facility])[address] [place] [address]SRBTFSKKDX FILTRATION RATE ML/MIN/1.73 SQ M.WMLLQXUWC07.1 mL/min/1.73m*2Normal>60.0UnBellevue HospitalComment on above: Result Comment: [facility]???s estimated glomerular filtration rate (eGFR) will [...] anyone group of individuals.Performed By: #### [id number] ####[facility] ([facility])[address] [place] [address]Muqvaqv [Mass/Vol]90 mg/pBXnlcsa00-774UslhtwwysdBellevue HospitalComment on above:Performed By: #### [id number] ####[facility] ([facility])[address] [place] [address]Tqywkcktx [Moles/Vol]4.0 mmol/LNormal3.5-5.1UnBellevue HospitalComment on above:Performed By: #### [id number] ####[facility] ([facility])[address] [place] [address] Sodium [Moles/Vol]137 mmol/WZrclxc636-202FazdpengwoBellevue Hospital Comment on above:Performed By: #### [id number] ####[facility] ([facility])[address] [place], [place] [address]Wpdc nitrogen [Mass/Vol]7 mg/dLNormal7-25UnBellevue HospitalComment on above:Performed By: #### [id number] ####[facility] ([facility])[address] [place], [place] [address]NRQB NITROGEN/CREATININE (MASS RATIO) IN SER/PLAS7.1NormalUnBellevue HospitalComment on above:Performed By: #### [id number] ####[facility] ([facility])[address] [place] [address]SEMrp [id number] distribution width (RBC) [Ratio] 16.2 %High11.5-15.0UnBellevue HospitalComment on above:Performed By: #### [id number] #### [facility] ([facility]) [address] [address]ELPLCPZJWDF MEAN CORPUSCULAR HEMOGLOBIN CONCENTRATION (G/DL) BY DGRXWSQZS86.5 g/dLLow32.0-35.0UnBellevue HospitalComment on above:Performed By: #### [id number] #### [facility] ([facility]) [address] [place] [address]Gpikcqfwnk (Bld) [Volume fraction]42.0 %Tqcpuc00.0-55.[address] [facility] HospitalComment on above:Performed By: #### [id number] #### [facility] ([facility]) [address] [place] [address]Jcvhltghjv (Bld) [Mass/Vol]12.8 g/dLLow13.0-17.0UnBellevue HospitalComment on above:Performed By: #### [id number] #### [facility] ([facility]) [address] [place] [address]ESR (RBC) [Entitic mass]26.9 pgLow27.0-33.0UnBellevue HospitalComment on above:Performed By: #### [id number] #### [facility] ([facility]) [address] [place] [address]LOP (RBC) [Entitic vol]88.2 yITtsssn40.0-98.0UnBellevue HospitalComment on above:Performed By: #### [id number] #### [facility] ([facility]) [address] [place] [address]VDWCDTBHB (10*3/UL) IN BLOOD AUTOMATED [id number] 10*3/uLNormal 150-400UnBellevue HospitalComment on above:Performed By: #### [id number] #### [facility] ([facility]) [address] [place] [address]OKW (Bld) [#/Vol]4.76 10*6/uLNormal4.20-5.70UnBellevue HospitalComment on above:Performed By: #### [id number] #### [facility] ([facility]) [address] [place] [address]XWK (Bld) [#/Vol]8.22 10*3/uLNormal4.00-10.60UnBellevue HospitalComment on above:Performed By: #### [id number] #### [facility] ([facility]) [address] [place] [address]XOAZQVHTWrx 56-75-0835Hrbambelz [Mass/Vol]2.0 mg/dLNormal1.9-2.[address] [facility] HospitalComment on above:Performed By: #### [id number] #### [facility] ([facility]) [address] [place], [place] [address]QYVSE CULTUREon 73-01-0309Gxgsbrgn identified Cx Nom (Bld)No growth at 5 daysNormalUniversKettering HealthComment on above: Performed By: #### [id number] ####[facility] ([facility])[address] [place], [place] [address]Jwarw Comment: From a different site than #1.Performed By: #### [id number] #### [facility] ([facility]) [address] [facility] [place], [place] [address]M-LQCAZHKY PROTEINon 10-08-2024 REACTIVE PROTEIN (MG/L) IN SER/PLAS26.6 mg/LHigh<=5.0UnBellevue HospitalComment on above: Result Comment: Testing performed using a new methodology, turbidimetry. Normal ranges have been updated. Old normal range was <8 mg/L.Performed By: #### [id number] ####[facility] ([facility] [place] [address]QVK WITH AUTO DIFFERENTIALon 23-02-3033Ntcjusnwl (Bld) [#/Vol]0.06 10*3/uLNormal0.00-0.[address] [facility] HospitalComment on above:Performed By: #### [id number] #### [facility] ([facility]) [address] [address]Bnqtoduso/100 WBC (Bld)0.8 %Normal0.0-1.0UnBellevue HospitalComment on above:Performed By: #### [id number] #### [facility] ([facility]) [address] [place] [address]Tdehjbxmmag (Bld) [#/Vol]0.17 10*3/uLNormal0.00-0.50UnBellevue HospitalComment on above:Performed By: #### [id number] #### [facility] ([facility]) [address] [place], [place] [address]Ekahuwftsat/100 WBC (Bld)2.3 %Normal0.0-6.0UnBellevue HospitalComment on above:Performed By: #### [id number] #### [facility] ([facility]) [address] [place], [place] [address]Zzuvywcumbm distribution width (RBC) [Ratio]16.0 %High11.5-15.[address] [facility] HospitalComment on above:Performed By: #### [id number] #### [facility] ([facility]) [address] [place], [place] [address]NSVLZFGHSZM MEAN CORPUSCULAR HEMOGLOBIN CONCENTRATION (G/DL) BY HMWGAQXRW00.3 g/dLLow32.0-35.0UnBellevue HospitalComment on above:Performed By: #### [id number] #### [facility] ([facility]) [address] [place], [place] [address]Qgbjqrvizh (Bld) [Volume fraction]40.9 %Jppcoi62.0-55.[address] [facility] HospitalComment on above:Performed By: #### [id number] #### [facility] ([facility]) [address] [facility] [place], [place] [address]Ijwsdobulh (Bld) [Mass/Vol]12.4 g/dLLow13.0-17.0UnBellevue HospitalComment on above:Performed By: #### [id number] #### [facility] ([facility]) [address], [place] [address]Wnpgdlsj granulocytes (Bld) [#/Vol]0.10 10*3/uLNormal0.00-0.[address] [facility] HospitalComment on above:Performed By: #### [id number] #### [facility] ([facility]) [address] [place], [place] [address]Fdrkerhb granulocytes/100 WBC (Bld)1.4 %High0.0-1.0UnBellevue HospitalComment on above:Performed By: #### [id number] #### [facility] ([facility]) [address], [place] [address]Larqdlbfztz (Bld) [#/Vol]0.73 10*3/uLLow1.20-4.00UnBellevue HospitalComment on above:Performed By: #### [id number] #### [facility] ([facility]) [address], [place] [address]Ouccsbrsxas/100 WBC (Bld)10.0 %Low20.0-45.0UnBellevue HospitalComment on above:Performed By: #### [id number] #### [facility] ([facility]) [address], [place] [address]TAR (RBC) [Entitic mass]26.7 pgLow27.0-33.0UnBellevue HospitalComment on above:Performed By: #### [id number] #### [facility] ([facility]) [address] [facility] [place], [place] [address]VXF (RBC) [Entitic vol]88.0 gHFimylt56.0-98.0UnBellevue HospitalComment on above:Performed By: #### [id number] #### [facility] ([facility]) [address] [place] [address]Pbyzwnotz (Bld) [#/Vol]0.52 10*3/uLNormal0.10-1.00UnBellevue HospitalComment on above:Performed By: #### [id number] #### [facility] ([facility]) [address] [place] [address]Dvzhhiixi/100 WBC (Bld)7.1 %Normal5.0-12.0UnBellevue HospitalComment on above:Performed By: #### [id number] #### [facility] ([facility]) [address] [place] [address]Okzobaypquq (Bld) [#/Vol]5.73 10*3/uLNormal1.60-7.60UnBellevue HospitalComment on above:Performed By: #### [id number] #### [facility] ([facility]) [address] [place] [address]Iyuivaykwxq/100 WBC (Bld)78.4 %High40.0-72.0UnBellevue HospitalComment on above:Performed By: #### [id number] #### [facility] ([facility]) [address] [place] [address]BBUL (PER 100 WBCS) BY AUTOMATED COUNT0.0 %Pwhonq4BsaygpmvrrBellevue HospitalComment on above:Performed By: #### [id number] #### [facility] ([facility]) [address] [place] [address]YXSOYNKES (10*3/UL) IN BLOOD AUTOMATED UCOPT781 10*3/uLNormal 150-400UnBellevue HospitalComment on above:Performed By: #### [id number] #### [facility] ([facility]) [address] [place] [address]LJN (Bld) [#/Vol]4.65 10*6/uLNormal4.20-5.70UnBellevue HospitalComment on above:Performed By: #### [id number] #### [facility] ([facility]) [address] [place] [address]CCM (Bld) [#/Vol]7.31 10*3/uLNormal4.00-10.60UnBellevue HospitalComment on above:Performed By: #### [id number] #### [facility] ([facility]) [address] [place] [address]ZLTHCZGEMRHLA METABOLIC PANELon 71-94-7180Rxygoyd [Mass/Vol]3.7 g/dLNormal3.5-5.7UnBellevue HospitalComment on above:Performed By: #### [id number] #### [facility] ([facility]) [address] [place] [address]BTH [Catalytic activity/Vol]130 U/ZSbse07-775PppsbntoneBellevue HospitalComment on above:Performed By: #### [id number] #### [facility] ([facility]) [address] [place] [address]CYO [Catalytic activity/Vol]14 U/LNormal7-52UnBellevue HospitalComment on above:Performed By: #### [id number] #### [facility] ([facility]) [address] [place] [address]Mtepu gap [Moles/Vol]9 mmol/LNormal7-20UnBellevue HospitalComment on above:Performed By: #### [id number] #### [facility] ([facility]) [address] [place] [address]TGD [Catalytic activity/Vol]19 U/VBlfmpt08-06DhnwnpfzciBellevue HospitalComment on above:Performed By: #### [id number] #### [facility] ([facility]) [address] [place] [address]Xzbshcdcz [Mass/Vol]0.7 mg/dLNormal0.3-1.0UnBellevue HospitalComment on above:Performed By: #### [id number] #### [facility] ([facility]) [address] [place], [place] [address]Xxfippw [Mass/Vol]9.5 mg/dLNormal8.6-10.3UnBellevue HospitalComment on above:Performed By: #### [id number] #### [facility] ([facility]) [address] [place], [place] [address]Xuuzliyq [Moles/Vol]99 mmol/PHalsak10-659ZcrpqieeslBellevue HospitalComment on above:Performed By: #### [id number] #### [facility] ([facility]) [address] [place], [place] [address]HE3 [Moles/Vol]37 mmol/KLnji51-17AvjjurvepgBellevue HospitalComment on above:Performed By: #### [id number] #### [facility] ([facility]) [address] [place], [place] [address]Xgzwvoqjru [Mass/Vol]0.96 mg/dLNormal0.70-1.30UnBellevue HospitalComment on above:Performed By: #### [id number] #### [facility] ([facility]) [address] [place], [place] [address]GUKFHVXHSJ FILTRATION RATE ML/MIN/1.73 SQ M.GXNTRCGKM23.3 mL/min/1.73m*2Normal>60.0UnBellevue HospitalComment on above: Result Comment: [facility]???s estimated glomerular filtration rate (eGFR) will [...] affect anyone group of individuals.Performed By: #### [id number] #### [facility] ([facility]) [address] [place], [place] [address]Yuyvsww [Mass/Vol]83 mg/lJOmoedk28-257MfcgbbtrveBellevue HospitalComment on above:Performed By: #### [id number] #### [facility] ([facility]) [address] [place] [address]Iobwhgixv [Moles/Vol]4.2 mmol/LNormal3.5-5.1UnBellevue HospitalComment on above:Performed By: #### [id number] #### [facility] ([facility]) [address] [place] [address]Tbkakjy [Mass/Vol]7.1 g/dLNormal6.0-8.3UnBellevue HospitalComment on above:Performed By: #### [id number] #### [facility] ([facility]) [address] [place] [address]Cofsqj [Moles/Vol]141 mmol/XDsgxhh604-372TrugaibvezBellevue HospitalComment on above:Performed By: #### [id number] #### [facility] ([facility]) [address] [place] [address]Cblo nitrogen [Mass/Vol]10 mg/dLNormal7-25UnBellevue HospitalComment on above:Performed By: #### [id number] #### [facility] ([facility]) [address] [place] [address]QHNN NITROGEN/CREATININE (MASS RATIO) IN SER/PLAS10.4Normal [facility] HospitalComment on above:Performed By: #### [id number] #### [facility] ([facility]) [address] [place] [address]KDKWOWJsy 60-92-6887YNGTTBP Attestation signed by Jose Angel Mai MD [...] (Viagra) 25 mg ta (more content not included)...[facility] CenterEDNURSon 28-33-5865XXJAPZNkkakwb: transfer from [facility] Complaint: cellulitis to right leg, hx surgery on 09/24 Notes: patient arrived on this day via [facility] from [facility] for pain to the right leg. Previous surgery at [facility] on 09/24 for right leg tib/fib fracture. Per [facility] staff, patient arrived with increased pain, redness and swelling to right lower extremity. Ultrasound was negative for DVT. [facility] ED treated for cellulitis, administered dose of zosyn at 0330, vancomycin at 2030 and 5mg oxycontin at 1930. Patient endorsed non-compliance, did not have post surgery follow up appointment and has been putting weight on leg. History of hypertension, patient O2 desat to 88% when sleeping. Per [facility], patient non-compliant with bipap. Upon arrival, patient endorsed pain 8/10 and nausea. Patient denied chest pain, fever, chills and shortness of breath.NormalUnBellevue Hospital EDPROVon 29-39-5728TCGLQXHgsfqfnhkwBellevue Hospital [address] [facility] [address] EMERGENCY DEPARTMENT ENCOUNTER CHIEF COMPLAINT Chief Complaint [...] male who was transferred from [facility] for cellulitis involving recent right lower extremity surgery. Patient had surgical pair of a tibia fracture on September 24. The patient states that he went to [facility] emergency department today due to increased swelling. Patient was given Zosyn and vancomycin at [facility]. Patient states that he is [...] No respiratory distress. B (more content not included)...NormalUnBellevue Hospital MAGNESIUMon 14-48-9974Ilqwspvwk [Mass/Vol]1.8 mg/dLLow1.9-2.7UnBellevue HospitalComment on above:Performed By: #### [id number] #### [facility] ([facility]) [address] [place], [place] [address]TPIBBWZDLIYVJ RATEon 06-61-7421NIUTREXHRUVAC RATE, JLKPQMYWTEQ17 mm/hrHigh<20UnBellevue HospitalComment on above:Performed By: #### [id number] #### [facility] ([facility]) [address] [place] [address]AIJNLGQ D 25 HYDROXYon 03-33-7171BQKPABCTW (25 [place] VITAMIN D3) (NG/ML) IN SER/PLAS37.0 ng/zLHogcel54.0-80.0UnBellevue Hospital Comment on above:Result Comment: >80.0 Toxicity possiblePerformed By: #### [id number] ####[facility] ([facility])[address] [address] [phone] for [facility] care, PT, and OT. Seeing patient a couple times a week could specify a number of times. States is also doing dressing changes. [phone] [facility] HospitalTelephoneon 10-04-2024 [id number] Matty Garces 1970 M Date Provider Department Center 10/04/2024 [address]-VUMFTLMATT [facility] MPORTHO No family history on file Reason for Visit and Comments: Information [Other]NormalUnBellevue Hospital36on Patient in home PT called and wanted to confirm if Dr. Field does the in home therapy approvals/orders or if he had to follow up with his PCP, lyric writer informed her he does. Patient is scheduled for 10/05/24.NormalUnBellevue HospitalBASIC METABOLIC PANELon 91-61-6609Pxoto gap [Moles/Vol]7 mmol/LNormal7-[address] [facility] HospitalComment on above:Performed By: #### [id number] ####[facility] ([facility])[address] [address]Gfufqbs [Mass/Vol]9.6 mg/dLNormal8.6-10.3UnBellevue HospitalComment on above:Performed By: #### [id number] ####[facility] ([facility])[address] [address]Bhxfuzqx [Moles/Vol]98 mmol/SVyiban03-293DrsxagehkrBellevue HospitalComment on above:Performed By: #### [id number] ####[facility] ([facility])[address] [place] [address]LB1 [Moles/Vol]34 mmol/YUsmk16-[address] [facility] HospitalComment on above:Performed By: #### [id number] ####[facility] ([facility])[address] [place] [address]Iejfyqzqwn [Mass/Vol]0.92 mg/dLNormal0.70-1.30UnBellevue HospitalComment on above:Performed By: #### [id number] ####[facility] ([facility])[address] [place] [address]BLCGNRJDFL FILTRATION RATE ML/MIN/1.73 SQ M.EWJVETCSD75.9 mL/min/1.73m*2Normal>60.0UnBellevue HospitalComment on above: Result Comment: [facility]???s estimated glomerular filtration rate (eGFR) will [...] anyone group of individuals.Performed By: #### [id number] ####[facility] ([facility])[address] [place] [address]Ylachqd [Mass/Vol]99 mg/iNCxyywz67-046MamxhmfdbqBellevue HospitalComment on above:Performed By: #### [id number] ####[facility] ([facility])[address] [place] [address]Qhilvumyq [Moles/Vol]4.3 mmol/LNormal3.5-5.1UnBellevue HospitalComment on above:Performed By: #### [id number] ####[facility] ([facility])[address] [place] [address] Sodium [Moles/Vol]135 mmol/VGgx379-962KrqmhllwgjBellevue HospitalComment on above:Performed By: #### [id number] ####[facility] ([facility])[address] [address]Ndik nitrogen [Mass/Vol]20 mg/dLNormal7-25UnBellevue HospitalComment on above:Performed By: #### [id number] ####[facility] ([facility])[address] [place] [address]YVLL NITROGEN/CREATININE (MASS RATIO) IN SER/PLAS21.7NormalUniversKettering HealthComment on above: Performed By: #### [id number] ####[facility] ([facility])[address] [address]SMIix 96-06-0529Mfwsmddcmin distribution width (RBC) [Ratio]15.3 %High 11.5-15.0UnBellevue HospitalComment on above:Performed By: #### [id number] #### [facility] ([facility]) [address] [place] [address]IUDINGAWWXB MEAN CORPUSCULAR HEMOGLOBIN CONCENTRATION (G/DL) BY QZEPKREUS63.9 g/dLLow32.0-35.0UnBellevue HospitalComment on above:Performed By: #### [id number] #### [facility] ([facility]) [address] [place] [address]Rgoqvmvwqv (Bld) [Volume fraction]44.4 %Pheliv88.0-55.[address] [facility] HospitalComment on above:Performed By: #### [id number] #### [facility] ([facility]) [address] [place] [address]Odujneqnxq (Bld) [Mass/Vol]13.7 g/fYVpdeut16.0-17.0UnBellevue HospitalComment on above:Performed By: #### [id number] #### [facility] ([facility]) [address] [place] [address]FHF (RBC) [Entitic mass]26.5 pgLow27.0-33.0UnBellevue HospitalComment on above:Performed By: #### [id number] #### [facility] ([facility]) [address] [place] [place], [place] [address]DDZ (RBC) [Entitic vol]85.9 rQSsdoqm66.0-98.0UnBellevue HospitalComment on above:Performed By: #### [id number] #### [facility] ([facility]) [address] [place], [place] [address]TQCGGRLFN (10*3/UL) IN BLOOD AUTOMATED RHTCJ560 10*3/uLNormal 150-400UnBellevue HospitalComment on above:Performed By: #### [id number] #### [facility] ([facility]) [address] [place], [place] [address]NGM (Bld) [#/Vol]5.17 10*6/uLNormal4.20-5.70UnBellevue HospitalComment on above:Performed By: #### [id number] #### [facility] ([facility]) [address] [facility] [place], [place] [address]DRZ (Bld) [#/Vol]10.65 10*3/uLHigh4.00-10.60UnBellevue HospitalComment on above:Performed By: #### [id number] #### [facility] ([facility]) [address] [place], [place] [address]GOUNAMSxh 14-45-6650FBZIIKSUaejffg tried CPAP in the past and was [...] Interventions Referrals/Orders: Yes, Sleep [facility] Spent: 20 [facility] 44-77-5089DVOwpqjljic Admitted 09/23/2024 for Fall, syncope Comminuted right tib/fib fracture CHF HTN Hypomagnesemia Enlarged right hilar node Enlarged prostate Discharge Diagnosis Fall, syncope Comminuted right tib/fib fracture CHF HTN Hypomagnesemia Enlarged right hilar node Enlarged prostate Obstructive sleep apnea Morbid obesity Atrial flutter, new onset Discharge Disposition Home-Health Care [facility] (06) Discharge Medications Your medication [...] Medications These medications were sent to [facility] - [address] [place] [address] [address] [facility] [place] [address], [facility] [address] acetaminophen 500 mg tablet aspirin 81 mg [...] was informed at approximately 1730 per [facility] that patient went into a-flutter and sustained for approximately 2 hours fro (more content not included)...NormalRegency Hospital CompanyPROVon 05-05-7526KPTJWPMlgx report has been cancelled.NormalMercy Health St. Elizabeth Boardman HospitalLetter (Out)on 64-45-4004Fjtdgd (Out)[id number] Matty Garces 1970 M Date Provider Department Center 09/28/2024 U6515-VOSMNHH, GENERIC PRO*INIT None No family history on fileNormalUniversKettering HealthMAGNESIUMon 52-92-1033Flfdmytlj [Mass/Vol]2.0 mg/dLNormal1.9-2.7UnBellevue HospitalComment on above:Performed By: #### [id number] #### [facility] ([facility]) [address], [place] [address]PFDZFCYAly 85-75-1073AYIEFLRYRA signed AMA paperwork with trama team. Pt left with belongings and family. AMA paperwork in patient chart.NormalMercy Health St. [facility] PHOSPHORUSon 50-47-6847Nxglfkoyv [Mass/Vol]3.3 mg/dLNormal2.5-5.0UnBellevue HospitalComment on above:Performed By: #### [id number] ####[facility] ([facility])[address] [place], [place] [address]9ye [phone] patient is Moderately Stable - Low risk of patient condition declining or worsening The patient's goals for the shift include comfort The clinical goals for the shift include VSS, pain control Over the shift, the patient did not make progress toward the following goals. Barriers to progression include unstable VS. Recommendations to address these barriers include continue medications as orderedNormalUnibaylor scott & white medical center [facility] of [facility]30Daily Case Management Update Multidisciplinary rounds have been completed. Barriers to Discharge: Pending clinical course; POD3 IMN; 4L NC. Patient refusing CPaP at rest/sleep, Pulm brennen consulted and following. PT/OT recommending IPR, PMR consulted and recommend IPR. Patient and spouse would like to go home with [facility]. Referrals sent, pending accepting [facility] agency>>Radha Mendenhall [facility] accepting. DME recommended--wheelchair, rolling walker, bedside commode--scripts written and face to face notes signed.>>need sent to [employer] for fulfillment. SW following. Diet: Dietary [...] R tib fib facrture Level of Consultation Trichologist assumes full responsibility 09/23/24 1231 09/23/24 1221 [...] Answer: Post muscular skeletal surgical procedure 09/24/24 1242Normal[facility]30The patient is Moderately Stable - Low risk [...] medicate for pain as ordered maintain safety precautions.[facility]30The patient is Moderately Stable - Low risk of patient condition declining or worsening The patient's goals for the shift include Comfort The clinical goals for the shift include VSS Problem: Pain - Adult Goal: Verbalizes/displays adequate comfort level or baseline comfort level Outcome: Progressing Flowsheets (Taken 09/27/2024 0015) Verbalizes/displays adequate comfort level or baseline comfort [...] from fall injury Outcome: Progressing Flowsheets (Taken 09/27/2024 0015) Free from fall injury: Assess patient frequently for physical needs Identify cognitive and physical deficits and behaviors that affect risk of falls Muir fall precautions as indicated by assessment Educate patient/family on patient safety, including physical limitations Instruct patient to call for assistance with activity based on assessment Modify environment to reduce risk of injuryNormalUniversKettering HealthBASIC METABOLIC PANELon 01-94-4075Uadwz gap [Moles/Vol]9 mmol/LNormal7-[address] [facility] HospitalComment on above:Performed By: #### [id number] #### [facility] ([facility]) [address] [place], [place] [address]Nxplvrc [Mass/Vol]9.3 mg/dLNormal8.6-10.3UnBellevue HospitalComment on above:Performed By: #### [id number] #### [facility] ([facility]) [address] [place], [place] [address]Iipmojdr [Moles/Vol]99 mmol/QEdoqpv59-357LxptskcpjcBellevue HospitalComment on above:Performed By: #### [id number] #### [facility] ([facility]) [address] [place], [place] [address]CZ2 [Moles/Vol]33 mmol/BXlsu22-61SyzgzbyqqgBellevue HospitalComment on above:Performed By: #### [id number] #### [facility] ([facility]) [address] [place], [place] [address]Fitmagaybt [Mass/Vol]0.89 mg/dLNormal0.70-1.30UnBellevue HospitalComment on above:Performed By: #### [id number] #### [facility] ([facility]) [address] [place], [place] [address]WANGQHWGET FILTRATION RATE ML/MIN/1.73 SQ M.YVXECZHCT123.8 mL/min/1.73m*2Normal>60.0UnBellevue HospitalComment on above: Result Comment: [facility]???s estimated glomerular filtration rate (eGFR) will [...] affect anyone group of individuals.Performed By: #### [id number] #### [facility] ([facility]) [address] [place], [place] [address]Psoihma [Mass/Vol]95 mg/ySMgoice70-404KnhsiexcjxBellevue HospitalComment on above:Performed By: #### [id number] #### [facility] ([facility]) [address] [place], [place] [address]Njbaszdtm [Moles/Vol]4.1 mmol/LNormal3.5-5.1UnBellevue HospitalComment on above:Performed By: #### [id number] #### [facility] ([facility]) [address] [place], [place] [address]Zsqdrc [Moles/Vol]137 mmol/IStbbqb657-657HporrwmrhrBellevue HospitalComment on above:Performed By: #### [id number] #### [facility] ([facility]) [address] [place], [place] [address]Uqhu nitrogen [Mass/Vol]17 mg/dLNormal7-25UnBellevue HospitalComment on above:Performed By: #### [id number] #### [facility] ([facility]) [address] [place], [place] [address]UOPC NITROGEN/CREATININE (MASS RATIO) IN SER/PLAS19.1Normal [facility] HospitalComment on above:Performed By: #### [id number] #### [facility] ([facility]) [address] [place], [place] [address]KTLvz 25-33-1441Tfxlfowvqsd distribution width (RBC) [Ratio]15.4 %High11.5-15.0UnBellevue HospitalComment on above:Performed By: #### [id number] #### [facility] ([facility]) [address] [place] [address]SPVUIMNFOCE MEAN CORPUSCULAR HEMOGLOBIN CONCENTRATION (G/DL) BY FYQFQWIJM91.8 g/dLLow32.0-35.0UnBellevue HospitalComment on above:Performed By: #### [id number] #### [facility] ([facility]) [address] [place] [address]Bxoqcsamey (Bld) [Volume fraction]45.5 %Ehfqjg98.0-55.[address] [facility] HospitalComment on above:Performed By: #### [id number] #### [facility] ([facility]) [address] [place] [address]Ysvgxergpk (Bld) [Mass/Vol]14.0 g/fEBwnfgf91.0-17.0UnBellevue HospitalComment on above:Performed By: #### [id number] #### [facility] ([facility]) [address] [place] [address]XUH (RBC) [Entitic mass]26.5 pgLow27.0-33.0UnBellevue HospitalComment on above:Performed By: #### [id number] #### [facility] ([facility]) [address] [place] [address]DAR (RBC) [Entitic vol]86.0 sNAidnsj36.0-98.0UnBellevue HospitalComment on above:Performed By: #### [id number] #### [facility] ([facility]) [address] [place] [address]QNHQSMXFQ (10*3/UL) IN BLOOD AUTOMATED [id number] 10*3/uLNormal 150-400UnBellevue HospitalComment on above:Performed By: #### [id number] #### [facility] ([facility]) [address] [place] [address]XFW (Bld) [#/Vol]5.29 10*6/uLNormal4.20-5.70UnBellevue HospitalComment on above:Performed By: #### [id number] #### [facility] ([facility]) [address] [place], [place] [address]NHM (Bld) [#/Vol]10.21 10*3/uLNormal4.00-10.60UnBellevue HospitalComment on above:Performed By: #### [id number] #### [facility] ([facility]) [address] [place], [place] [address]KZHPQQRIPxz 99-73-6436Nxllogdev [Mass/Vol]1.9 mg/dLNormal1.9-2.[address] [facility] HospitalComment on above:Performed By: #### [id number] #### [facility] ([facility]) [address] [place], [place] [address]KYZKSKNNJIpl 52-21-1860Rlheaqrdr [Mass/Vol]4.4 mg/dLNormal 2.5-5.0UnBellevue HospitalComment on above:Performed By: #### [id number] #### [facility] ([facility]) [address], [place] [address]KQXNWP BLOOD GAS WITH IONIZED CALCIUMon 60-94-1370Yyyp excess Calc (BldV) [Moles/Vol]9.2 mmol/LNormalUnBellevue Hospital Comment on above:Performed By: #### [id number] ####[facility] RESPIRATORY [id number] [place] [address] USACALCIUM IONIZED (MMOL/L) IN BLOOD1.27 mmol/L Normal1.15-1.33UnBellevue HospitalComment on above:Performed By: #### [id number] ####[facility] RESPIRATORY [id number] [place] [address] [place] CO2 (BldV) [Partial pressure]50 mm[Hg]Rryjci72-18FqdtqashyhBellevue HospitalComment on above:Performed By: #### [id number] ####[facility] RESPIRATORY [id number] [place] [address] USAHCO3 (Bld) [Moles/Vol]34.8 mmol/L NormalUnBellevue HospitalComment on above:Performed By: #### [id number] ####[facility] RESPIRATORY [id number] [place] [address] USAOxygen (BldV) [Partial pressure]53 mm[Hg]Ulri79-47HqtcqnsswxBellevue Hospital Comment on above:Performed By: #### [id number] ####[facility] RESPIRATORY [id number] [place] [address] USAOXYGEN SATURATION (%) IN VENOUS BLOOD87.1 %High 65.0-75.0UnBellevue HospitalComment on above:Performed By: #### [id number] ####[facility] RESPIRATORY [id number] [place] [address] USAPH OF VENOUS BLOOD7.24Afkw8.31-7.41UnBellevue HospitalComment on above:Performed By: #### [id number] ####[facility] RESPIRATORY [id number] [place] [address] USABASIC METABOLIC PANELon 97-52-2768Vgxrh gap [Moles/Vol]8 mmol/LNormal7-20UnBellevue HospitalComment on above:Performed By: #### [id number] #### [facility] ([facility]) [address] [place], [place] [address]Bmtrmsu [Mass/Vol]9.4 mg/dLNormal8.6-10.3UnBellevue HospitalComment on above:Performed By: #### [id number] #### [facility] ([facility]) [address] [place] [place], [place] [address]Mejmnqjy [Moles/Vol]99 mmol/HGmtuzd50-263CawmvtzwquBellevue HospitalComment on above:Performed By: #### [id number] #### [facility] ([facility]) [address] [place], [place] [address]NW5 [Moles/Vol]36 mmol/CQmbv00-45XwqwxulwfeBellevue HospitalComment on above:Performed By: #### [id number] #### [facility] ([facility]) [address] [place] [address]Mjaniskvnh [Mass/Vol]0.91 mg/dLNormal0.70-1.30UnBellevue HospitalComment on above:Performed By: #### [id number] #### [facility] ([facility]) [address] [place] [address]DRHPTZODLZ FILTRATION RATE ML/MIN/1.73 SQ M.BAQCFLRYO696.2 mL/min/1.73m*2Normal>60.0UnBellevue HospitalComment on above: Result Comment: [facility]???s estimated glomerular filtration rate (eGFR) will [...] affect anyone group of individuals.Performed By: #### [id number] #### [facility] ([facility]) [address] [place] [address]Tbnmejn [Mass/Vol]85 mg/rGMixjej38-894GzcyfkuxkmBellevue HospitalComment on above:Performed By: #### [id number] #### [facility] ([facility]) [address] [place] [address]Vfktfjmfw [Moles/Vol]3.8 mmol/LNormal3.5-5.1UnBellevue HospitalComment on above:Performed By: #### [id number] #### [facility] ([facility]) [address] [place] [address]Ppxduy [Moles/Vol]139 mmol/PAcmbzo223-297ZxojcqroveBellevue HospitalComment on above:Performed By: #### [id number] #### [facility] ([facility]) [address] [place] [address]Kcfk nitrogen [Mass/Vol]18 mg/dLNormal7-25UnBellevue HospitalComment on above:Performed By: #### [id number] #### [facility] ([facility]) [address] [place] [address]BZNT NITROGEN/CREATININE (MASS RATIO) IN SER/PLAS19.8Normal [facility] HospitalComment on above:Performed By: #### [id number] #### [facility] ([facility]) [address] [place] [address]QUNxi 67-97-7083Gknqqheezff distribution width (RBC) [Ratio]15.4 %High11.5-15.0UnBellevue HospitalComment on above:Performed By: #### [id number] #### [facility] ([facility]) [address] [place] [address]SRXFEDACXRL MEAN CORPUSCULAR HEMOGLOBIN CONCENTRATION (G/DL) BY WFCPSHIWM50.1 g/dLLow32.0-35.0UnBellevue HospitalComment on above:Performed By: #### [id number] #### [facility] ([facility]) [address] [place] [address]Dmpsaknnlh (Bld) [Volume fraction]43.8 %Txqowk32.0-55.[address] [facility] HospitalComment on above:Performed By: #### [id number] #### [facility] ([facility]) [address] [place] [address]Rydgupkhhc (Bld) [Mass/Vol]13.6 g/aJSpchoy48.0-17.0UnBellevue HospitalComment on above:Performed By: #### [id number] #### [facility] ([facility]) [address] [place] [address]PBA (RBC) [Entitic mass]26.3 pgLow27.0-33.0UnBellevue HospitalComment on above:Performed By: #### [id number] #### [facility] [address] [place] [address]VQH (RBC) [Entitic vol]84.7 iIBvyeuf47.0-98.0UnBellevue HospitalComment on above:Performed By: #### [id number] #### [facility] ([facility]) [address] [place] [address]JHFDVUTBR (10*3/UL) IN BLOOD AUTOMATED [id number] 10*3/uLNormal 150-400UnBellevue HospitalComment on above:Performed By: #### [id number] #### [facility] ([facility]) [address] [place], [place] [address]VPP (Bld) [#/Vol]5.17 10*6/uLNormal4.20-5.70UnBellevue HospitalComment on above:Performed By: #### [id number] #### [facility] ([facility]) [address] [place] [address]OLG (Bld) [#/Vol]9.63 10*3/uLNormal4.00-10.60UnBellevue HospitalComment on above:Performed By: #### [id number] #### [facility] ([facility]) [address] [place], [place] [address]VBDHXNMMYbn 23-10-8713Wqdsbkgkv [Mass/Vol]1.9 mg/dLNormal1.9-2.[address] [facility] HospitalComment on above:Performed By: #### [id number] #### [facility] ([facility]) [address] [place], [place] [address]ZGCXLDYPQEen 48-83-7729Fxpdgkule [Mass/Vol]2.6 mg/dLNormal 2.5-5.0UnBellevue HospitalComment on above:Performed By: #### [id number] #### [facility] ([facility]) [address] [place] [address]my 15-03-098619Wjjtsfu: Pain - Adult Goal: Verbalizes/displays adequate comfort [...] address these barriers include consult for respiratory therapy.[facility]30Daily Case Management Update Multidisciplinary rounds have been completed. Barriers to Discharge: Pending clinical course; patient requiring 10L salter at this time, pulmonary navigator consulted for possible PATEL. CXR ordered, no acute findings. Patient will require a home O2 evaluation if unable to wean oxygen. PT/OT recommending IPR, PMR consulted and recommend IPR. Patient and spouse would like to go home with [facility]. Referrals sent, pending accepting [facility] agency. DME recommended--wheelchair, rolling walker, bedside commode--scripts [...] R tib fib facrture Level of Consultation Trichologist assumes full responsibility 09/23/24 1231 09/23/24 1221 [...] Answer: Post muscular skeletal surgical procedure 09/24/24 1242NormalUniversKettering HealthBASIC METABOLIC PANELon 08-31-3960Skbit gap [Moles/Vol]9 mmol/LNormal7-20UnBellevue HospitalComment on above:Performed By: #### [id number] ####[facility] ([facility])[address] [place], [place] [address]Louetvj [Mass/Vol]8.9 mg/dLNormal 8.6-10.3UnBellevue HospitalComment on above:Performed By: #### [id number] ####[facility] ([facility])[address] [place], [place] [address]Kkhlnoaw [Moles/Vol]97 mmol/FHrj08-863ObfeonxrqsBellevue HospitalComment on above:Performed By: #### [id number] ####[facility] ([facility])[address] [place], [place] [address]ID0 [Moles/Vol]32 mmol/SXmoa97-86FlvwkomhtbBellevue HospitalComment on above:Performed By: #### [id number] ####[facility] ([facility])[address] [place], [place] [address]Hmbdyzohus [Mass/Vol]0.91 mg/dLNormal 0.70-1.30UnBellevue HospitalComment on above:Performed By: #### [id number] ####[facility] ([facility])[address] [place], [place] [address]FHJEVZJUHN FILTRATION RATE ML/MIN/1.73 SQ M.EIHECYJQE624.2 mL/min/1.73m*2Normal>60.[address] [facility] HospitalComment on above:Result Comment: [facility]???s estimated glomerular filtration rate (eG FR) will [...] group of individuals. Performed By: #### LAB15 ####[facility] ([facility])[address] [place] [address]Rpajkwk [Mass/Vol]141 mg/tTPlkt01-973KrsmyhdhguBellevue HospitalComment on above:Performed By: #### LAB15 ####[facility] ([facility])[address] [place] [address]Tzrepucsr [Moles/Vol]4.2 mmol/LNormal 3.5-5.1UnBellevue HospitalComment on above:Performed By: #### LAB15 ####[facility] ([facility])[address] [place] [address]Ppwtod [Moles/Vol]134 mmol/ZXdx443-102UvwqurmjzbBellevue HospitalComment on above:Performed By: #### [id number] ####[facility] ([facility])[address] [facility] [place], [place] [address]Mwkt nitrogen [Mass/Vol]15 mg/dLNormal7-25UnBellevue HospitalComment on above:Performed By: #### LAB15 ####[facility] ([facility])[address] [place], [place] [address]HZCK NITROGEN/CREATININE (MASS RATIO) IN SER/PLAS16.5NormalUniversKettering HealthComment on above: Performed By: #### LAB15 ####[facility] ([facility])[address] [place], [place] [address]OOWkm 84-69-8898Wixgsckwvng distribution width (RBC) [Ratio]14.9 % Ugihde21.5-15.0UnBellevue HospitalComment on above:Performed By: #### [id number] #### [facility] ([facility]) [address] [place], [place] [address]QANAFKHGYSP MEAN CORPUSCULAR HEMOGLOBIN CONCENTRATION (G/DL) BY EYICWKSOA60.1 g/dLLow32.0-35.0UnBellevue HospitalComment on above:Performed By: #### [id number] #### [facility] ([facility]) [address] [place] [address]Nwclmlifjp (Bld) [Volume fraction]45.4 %Spvtzi36.0-55.[address] [facility] HospitalComment on above:Performed By: #### [id number] #### [facility] ([facility]) [address] [place] [address]Cqfefgryzd (Bld) [Mass/Vol]14.1 g/mSQkored12.0-17.0UnBellevue HospitalComment on above:Performed By: #### [id number] #### [facility] ([facility]) [address] [place] [address]AGJ (RBC) [Entitic mass]26.3 pgLow27.0-33.0UnBellevue HospitalComment on above:Performed By: #### [id number] #### [facility] ([facility]) [address] [place] [address]RCR (RBC) [Entitic vol]84.5 gUZbcxzz90.0-98.0UnBellevue HospitalComment on above:Performed By: #### [id number] #### [facility] ([facility]) [address] [place] [address]DZHKBWILR (10*3/UL) IN BLOOD AUTOMATED [id number] 10*3/uLNormal 150-400UnBellevue HospitalComment on above:Performed By: #### [id number] #### [facility] ([facility]) [address] [place] [address]SNM (Bld) [#/Vol]5.37 10*6/uLNormal4.20-5.70UnBellevue HospitalComment on above:Performed By: #### [id number] #### [facility] ([facility]) [address] [place] [address]WYB (Bld) [#/Vol]14.37 10*3/uLHigh4.00-10.60UnBellevue HospitalComment on above:Performed By: #### [id number] #### [facility] ([facility]) [place] [address]WLHHYHGBZtg 26-71-5417Mzgtiioum [Mass/Vol]2.1 mg/dLNormal1.9-2.[address] [facility] HospitalComment on above:Performed By: #### [id number] ####[facility] ([facility])[address] [place] [address]HLGTKWWMar 36-96-2090IXCLEGGZYbjksn RN met patient at bedside and provided the Trauma Services Patient Brochure. Patient will follow-up with Orthopedics 10/05/2024 at 0900. No further needs currently.NormalUnBellevue HospitalPHOSPHORUSon 09-25-2024 Magnesium [Mass/Vol]2.8 mg/dLNormal2.5-5.0UnBellevue Hospital Comment on above:Performed By: #### [id number] ####[facility] ([facility])[address] [place] [address]zm 33-16-883281Ryy patient is Moderately Stable - Low risk [...] Adult Goal: Free from fall injury Outcome: ProgressingNormalUniversKettering HealthBASIC METABOLIC PANELon 93-23-4235Rvyfo gap [Moles/Vol]8 mmol/LNormal7-20UnBellevue HospitalComment on above:Performed By: #### LAB15 ####[facility] ([facility])[address] [place] [address]Aractkd [Mass/Vol]9.1 mg/dLNormal 8.6-10.3UnBellevue HospitalComment on above:Performed By: #### LAB15 ####[facility] ([facility])[address] [place], [place] [address]Zpflidgu [Moles/Vol]98 mmol/QCqdnpp91-278GlffbkmgxhBellevue HospitalComment on above:Performed By: #### LAB15 ####[facility] ([facility])[address] [place] [address]YV1 [Moles/Vol]35 mmol/XJvzu59-19HrzjlnirftBellevue HospitalComment on above:Performed By: #### LAB15 ####[facility] ([facility])[address] [place], [place] [address]Csumygnpak [Mass/Vol]1.02 mg/dLNormal 0.70-1.30UnBellevue HospitalComment on above:Performed By: #### LAB15 ####[facility] ([facility])[address] [place], [place] [address]GNQEPATEST FILTRATION RATE ML/MIN/1.73 SQ M.FPYJIHTBY19.3 mL/min/1.73m*2Normal>60.[address] [facility] HospitalComment on above:Result Comment: [facility]???s estimated glomerular filtration rate (eG FR) will [...] group of individuals. Performed By: #### LAB15 ####[facility] ([facility])[address] [place], [place] [address]Sdgjvhi [Mass/Vol]103 mg/rURlrg81-987CiqxmqclamBellevue HospitalComment on above:Performed By: #### LAB15 ####[facility] ([facility])[address] [place], [place] [address]Oifwfdscg [Moles/Vol]4.2 mmol/LNormal 3.5-5.1UnBellevue HospitalComment on above:Performed By: #### LAB15 ####[facility] ([facility])[address] [place] [address]Kqydfp [Moles/Vol]137 mmol/NAmuwdv026-280LvpbjhcpshBellevue HospitalComment on above:Performed By: #### LAB15 ####[facility] ([facility])[address] [place] [address]Gwmf nitrogen [Mass/Vol]11 mg/dLNormal7-25UnBellevue HospitalComment on above:Performed By: #### LAB15 ####[facility] ([facility])[address] [place] [address]JVTZ NITROGEN/CREATININE (MASS RATIO) IN SER/PLAS10.8NormalUniversKettering HealthComment on above: Performed By: #### LAB15 ####[facility] ([facility])[address] [place], [place] [address]QJVhc 16-92-0908Ftovprqlxli distribution width (RBC) [Ratio]15.5 %High 11.5-15.0UnBellevue HospitalComment on above:Performed By: #### [id number] #### [facility] ([facility]) [address] [place] [address]SRNQSKIKWAD MEAN CORPUSCULAR HEMOGLOBIN CONCENTRATION (G/DL) BY OXADIHZUQ44.4 g/dLLow32.0-35.0UnBellevue HospitalComment on above:Performed By: #### [id number] #### [facility] ([facility]) [address] [place], [place] [address]Soytambjgm (Bld) [Volume fraction]46.4 %Bjcntr63.0-55.[address] [facility] HospitalComment on above:Performed By: #### [id number] #### [facility] ([facility]) [address] [place], [place] [address]Qsvdfyksot (Bld) [Mass/Vol]14.1 g/xFKeafzo90.0-17.0UnBellevue HospitalComment on above:Performed By: #### [id number] #### [facility] ([facility]) [address] [place] [address]AQP (RBC) [Entitic mass]26.4 pgLow27.0-33.0UnBellevue HospitalComment on above:Performed By: #### [id number] #### [facility] ([facility]) [address] [place] [address]EVU (RBC) [Entitic vol]86.7 rKAmtran87.0-98.0UnBellevue HospitalComment on above:Performed By: #### [id number] #### [facility] ([facility]) [address] [place] [address]DLFXXVUMK (10*3/UL) IN BLOOD AUTOMATED [id number] 10*3/uLNormal 150-400UnBellevue HospitalComment on above:Performed By: #### [id number] #### [facility] ([facility]) [address] [place] [address]GAK (Bld) [#/Vol]5.35 10*6/uLNormal4.20-5.70UnBellevue HospitalComment on above:Performed By: #### [id number] #### [facility] ([facility]) [address] [place] [address]LDN (Bld) [#/Vol]7.56 10*3/uLNormal4.00-10.60UnBellevue HospitalComment on above:Performed By: #### [id number] #### [facility] ([facility]) [address] [place] [address]XCADXYYoq [phone] Medicine and Rehabilitation Consult Note Patient not staffed by PM&R today due to surgery today for IMN placement. Our team will staff tomorrow, 09/25/23. Silvia Zaldivar MDNormalUniversity Henry County HospitalMAGNESIUMon [id number] [Mass/Vol]2.2 mg/dLNormal1.9-2.7UnSt. Anthony's Hospital Medical CenterComment on above:Performed By: #### [id number] #### [facility] NÉSTOR PRIEST) ALEXX ZHU [address]VADSKSdt [id number] Attestation signed by Sandrine Field MD at [...] Operative Note Date: 09/23/2024 - 09/24/2024 Location: [facility] OR Name: Matty Garces, : [...] by intramedullary implant with interlocking screws [CPT: 70594] Stress exam of right ankle under anesthesia [CPT: 73065] Intraoperative use of fluoroscopy less than 1 hour by physician [CPT: 75729] Surgeons Primary: Sandrine Field MD Resident - [...] mm x 34 mm interlocking screw Staff: Milling Operator: Emi Francis RN Resource Management Planner: CHARLINE Montejo Scrub Person: Araseli Butler CST Indications: Matty Garces is an 53 y.o. male who presented as a transfer from [facility] on 09/23/2024. Patient was transferred due to findings of a right distal third tibial shaft fracture after a fall in the shower. The fracture was closed and was subsequently reduced and splinted at [place] in a long-leg splint. Patient made stable [...] of the soft t (more content not included)...NormalUnBellevue Hospital PHOSPHORUSon 28-96-0342Hmuohzima [Mass/Vol]4.0 mg/dLNormal2.5-5.0UnBellevue HospitalComment on above:Performed By: #### [id number] #### [facility] (AKER) [address], [place] [address]UVXN GLUCOSE METER UNSOLICITED RESULTSon 17-12-6867Ijorbdq [Mass/Vol]100 mg/uZJzptsh78-859QhjwwkazwaBellevue HospitalComment on above:Order Comment: Waived Testing in the ED is performed under the ED CLIA certificate #[id number].Result Comment: ydtfhc8Lpemdohxd By: #### [id number] #### [facility] (BEAKER) [address], [place] [address]JSBUoa 54-90-8583CNPUXRVOJ PARTIAL THROMBOPLASTIN TIME IN PPP BY COAGULATION ASSAY31.2 TyfjfipCgcjrv25.0-35.0UnBellevue Hospital Comment on above:Result Comment: Clinical significance of the APTT is questionable in the presence of heparin.Performed By: #### [id number] ####[facility] ([facility] [place] [address]SZD WITH AUTO DIFFERENTIALon 73-76-4165Kixrkfmej (Bld) [#/Vol]0.05 10*3/uLNormal0.00-0.[address] [facility] HospitalComment on above:Performed By: #### [id number] ####[facility] ([facility])[address] [place] [address]Tesllwwoj/100 WBC (Bld)0.5 %Normal0.0-1.0UnBellevue HospitalComment on above: Performed By: #### [id number] ####[facility] ([facility])[address] [place], [place] [address]Otxvjpvpxdl (Bld) [#/Vol]0.11 10*3/uLNormal0.00-0.[address] [facility] HospitalComment on above:Performed By: #### [id number] ####[facility] ([facility])[address] [place] [address]Ooxufievzkt/100 WBC (Bld)1.0 %Normal0.0-6.0UnBellevue HospitalComment on above: Performed By: #### [id number] ####[facility] ([facility])[address] [place], [place] [address]Myytkwthnui distribution width (RBC) [Ratio]15.9 %High 11.5-15.0UnBellevue HospitalComment on above:Performed By: #### [id number] ####[facility] ([facility])[address] [place] [address] ERYTHROCYTE MEAN CORPUSCULAR HEMOGLOBIN CONCENTRATION (G/DL) BY DLGWCVZQF54.3 g/dLLow32.0-35.0UnBellevue HospitalComment on above:Performed By: #### [id number] ####[facility] ([facility])[address] [place], [place] [address]Kzbcsaxedo (Bld) [Volume fraction]47.8 %Qbxizs69.0-55.0UnBellevue HospitalComment on above:Performed By: #### [id number] ####[facility] ([facility])[address] [place], [place] [address]Dngfntdspm (Bld) [Mass/Vol]14.5 g/dL Ogeqbw64.0-17.0UnBellevue HospitalComment on above:Performed By: #### [id number] ####[facility] ([facility])[address] [place] [address] Immature granulocytes (Bld) [#/Vol]0.10 10*3/uLNormal0.00-0.20UnBellevue HospitalComment on above:Performed By: #### [id number] ####[facility] ([facility])[address] [place], [place] [address]Aaduydyv granulocytes/100 WBC (Bld)0.9 %Normal0.0-1.0UnBellevue HospitalComment on above: Performed By: #### [id number] ####[facility] ([facility])[address] [place], [place] [address]Tusatjmzoax (Bld) [#/Vol]0.74 10*3/uLLow1.20-4.00UnBellevue HospitalComment on above:Performed By: #### [id number] ####[facility] ([facility])[address] [place], [place] [address]Mlcsmjbwpjs/100 WBC (Bld) 7.0 %Low20.0-45.0UnBellevue HospitalComment on above:Performed By: #### [id number] ####[facility] ([facility])[address] [place], [place] [address]VYL (RBC) [Entitic mass]26.4 pgLow27.0-33.0UnBellevue HospitalComment on above:Performed By: #### [id number] ####[facility] (BEAKER)[address] [place], [place] [address]RKF (RBC) [Entitic vol]87.1 fLNormal 82.0-98.0UnBellevue HospitalComment on above:Performed By: #### [id number] ####[facility] ([facility])[address] [place] [address] Monocytes (Bld) [#/Vol]0.73 10*3/uLNormal0.10-1.00UnBellevue HospitalComment on above:Performed By: #### [id number] ####[facility] ([facility])[address] [place], [place] [address]Opbjrzliq/100 WBC (Bld)6.9 %Normal 5.0-12.0UnBellevue HospitalComment on above:Performed By: #### [id number] ####[facility] ([facility])[address] [place] [address] Neutrophils (Bld) [#/Vol]8.83 10*3/uLHigh1.60-7.60UnBellevue HospitalComment on above:Performed By: #### [id number] ####[facility] ([facility])[address] [facility] [place], [place] [address]Qlahjfbhetb/100 WBC (Bld)83.7 %High 40.0-72.0UnBellevue HospitalComment on above:Performed By: #### [id number] ####[facility] ([facility])[address] [place], [place] [address]CBDB (PER 100 WBCS) BY AUTOMATED COUNT0.0 %Uvcdrr6YytawmzahhBellevue Hospital Comment on above:Performed By: #### [id number] ####[facility] ([facility])[address] [facility] [place], [place] [address]IZZGTCAHD (10*3/UL) IN BLOOD AUTOMATED [id number] 10*3/xKNtcahr887-146GnwlekoivhBellevue HospitalComment on above: Performed By: #### [id number] ####[facility] ([facility])[address] [place], [place] [address]SAU (Bld) [#/Vol]5.49 10*6/uLNormal4.20-5.70UnBellevue HospitalComment on above:Performed By: #### [id number] ####[facility] ([facility])[address] [place] [address]FGP (Bld) [#/Vol]10.56 10*3/uLNormal4.00-10.60UnBellevue HospitalComment on above: Performed By: #### [id number] ####[facility] ([facility])[address] [place], [place] [address]YDAMUFERHHDSQ METABOLIC PANELon 56-04-7861Qwzqylj [Mass/Vol] 3.9 g/dLNormal3.5-5.7UnBellevue HospitalComment on above: Performed By: #### [id number] ####[facility] ([facility])[address] [place], [place] [address]CVZ [Catalytic activity/Vol]98 U/BRlzduz20-180IbyfzkhbrwBellevue HospitalComment on above:Performed By: #### [id number] ####[facility] ([facility])[address] [place], [place] [address]LNO [Catalytic activity/Vol]34 U/L Normal7-52UnBellevue HospitalComment on above:Performed By: #### [id number] ####[facility] ([facility])[address] [place], [place] [address]Tmkrf gap [Moles/Vol]11 mmol/LNormal7-20UnBellevue HospitalComment on above:Performed By: #### [id number] ####[facility] ([facility])[address] [place], [place] [address]FRN [Catalytic activity/Vol]63 U/XJhtc84-44QqqhxuuxsyBellevue HospitalComment on above:Performed By: #### [id number] ####[facility] ([facility])[address] [place], [place] [address]Pjdynqezg [Mass/Vol]0.7 mg/dL Normal0.3-1.0UnBellevue HospitalComment on above:Performed By: #### [id number] ####[facility] (BEAKER)[address] [place] [address] Calcium [Mass/Vol]8.9 mg/dLNormal8.6-10.3UnBellevue Hospital Comment on above:Performed By: #### [id number] ####[facility] (BEAKER)[address] [place], [place] [address]Yktjtrgx [Moles/Vol]101 mmol/UPlomcm91-[address] [facility] HospitalComment on above:Performed By: #### [id number] ####[facility] ([facility])[address] [place], [place] [address]AL9 [Moles/Vol] 27 mmol/PXbfpho45-57FvokseebzsBellevue HospitalComment on above: Performed By: #### [id number] ####[facility] ([facility])[address] [place], [place] [address]Zjvvmdhzkq [Mass/Vol]0.96 mg/dLNormal0.70-1.30UnBellevue HospitalComment on above:Performed By: #### [id number] ####[facility] ([facility])[address] [place], [place] [address]LLNIRDYJQS FILTRATION RATE ML/MIN/1.73 SQ M.KSNDAFFMT84.9 mL/min/1.73m*2Normal>60.0UnBellevue Hospital Comment on above:Result Comment: [facility]???s estimated glomerular filtration rate (eGFR) will [...] anyone group of individuals.Performed By: #### [id number] ####[facility] ([facility])[address] [place], [place] [address]Yodhazc [Mass/Vol]93 mg/eZNuuvbn62-697SfwzjsoqplBellevue HospitalComment on above:Performed By: #### [id number] ####[facility] ([facility])[address] [place] [address]Hmouyfawf [Moles/Vol]4.3 mmol/LNormal3.5-5.1UnBellevue HospitalComment on above:Performed By: #### [id number] ####[facility] ([facility])[address] [place] [address]Szyyygm [Mass/Vol]7.2 g/dLNormal 6.0-8.3UnBellevue HospitalComment on above:Performed By: #### [id number] ####[facility] ([facility])[address] [place] [address]Obxsia [Moles/Vol]135 mmol/ZMrc440-955OeaweszxzxBellevue HospitalComment on above:Performed By: #### [id number] ####[facility] ([facility])[address] [place] [address]Dxzl nitrogen [Mass/Vol]8 mg/dLNormal7-25UnBellevue HospitalComment on above:Performed By: #### [id number] ####[facility] ([facility])[address] [place] [address]MKIJ NITROGEN/CREATININE (MASS RATIO) IN SER/PLAS8.3NormalUniversKettering HealthComment on above: Performed By: #### [id number] ####[facility] ([facility])[address] [place] [address]UGBGDTWse 34-21-3324VAUUHBF Attestation signed by Sandrine Field MD at [...] Alvarez MD Orthopaedic Surgery, Resident Ortho Pager [phone] 09/23/24 6:55 PM May contact the on-call resident with any concerns via the Orthopaedic pager at any time.[facility] ABDOMEN PELVIS W IV CONTRASTon 39-35-1382FO ABDOMEN PELVIS W IV CONTRASTClinical History and [...] PSA is advised. * Electronically signed: Fahad Frazier.[facility] CERVICAL SPINE WO IV CONTRASTon 15-58-9057MC CERVICAL SPINE WO IV CONTRASTCT CERVICAL SPINE [...] acute fracture nor listhesis. Electronically signed: Fahad Frazier.[facility] CHEST W IV CONTRASTon 67-84-7727AG CHEST W IV CONTRASTCT CHEST W IV [...] 3-4 months is recommended. 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 Patient arrives with Rt leg splintedNormalUniversPike Community HospitalPROVon 97-83-3208FFTBIFRllrkzf of Present Illness Chief Complaint Patient presents with Leg Injury Initial evaluation completed by Dr. Lang. Matty Garces is a 53 y/o male presenting to the ED with c/o leg injury. Pt was transferred from [facility] for right distal tibfib fracture. Pt [...] what they are. History provided by: Patient [place] Coma Scale Score: 15 History Past Medical [...] encounter Fall, initial encounter Medical Decision Making IMelanie, documented on behalf of Dr. Lang. Chief [...] Procedure Abnormality Status --------- ------ CBC auto differential[[id number]] Abnormal Final result Please view results for these tests on the individual orders. TYPE AND SCREEN ABO G (more content not included)...NormalUnBellevue Hospital ETHANOLon 18-12-6520YYSMYBU (MG/DL) IN SER/PLAS<10Normal<10UnBellevue HospitalComment on above:Performed By: #### [id number] #### [facility] (BEAKER) [address], [place] [address]JQZZOBX CALCULATED (%)<0.01NormalUniversKettering HealthComment on above:Performed By: #### [id number] #### [facility] (BEAKER) [address], [place] [address]JTgv 23-76-0083MPWtpwkboheb of [place] Trauma Surgery Chief Complaint: Trauma Fall Mechanism of Injury: 53 y.o. year old male who was brought in via EMS. He had no C-collar or back board in place. Circumstances of injury: Patient states that he was recently admitted to [place] for cellulitis to the [facility], he was discharged yesterday and this morning was home, he got out of bed to take a shower and had a micro seizure and heard his right ankle snap. Denies hitting head or LOC but admits that he doesn't remember the whole event. He went back to [place] ED where a right tib/fib fracture was found and patient was transferred to [facility] Of note patient is on anticoagulant/antiplatelets. Baby aspirin, however he was receiving Shots to prevent blood clots while inpatient at [place] Review of Systems: General: No For Chills, [...] GCS 15 Neck: Cervica (more content not included)...NormalMercy Health St. Elizabeth Boardman HospitalLACTIC ACID, PLASMAon 02-16-3906TXPQGRL (MMOL/L) IN SER/PLAS0.6 mmol/L Normal0.5-2.2UnBellevue HospitalComment on above:Performed By: #### [id number] #### [facility] ([facility]) [address] [place], [place] [address]ODGYKGGFUon 43-63-0336Uczzmzkhq [Mass/Vol]1.8 mg/dLLow1.9-2.[address] [facility] HospitalComment on above:Performed By: #### [id number] ####[facility] ([facility])[address] [place], [place] [address]UCPAWFGYYBcy 46-82-2394Qylhtyxnc [Mass/Vol]3.5 mg/dLNormal2.5-5.0UnBellevue HospitalComment on above:Performed By: #### [id number] #### [facility] ([facility]) [address], [place] [address]AZPHYTR-HXMit 19-08-1907DOS IN PPP BY COAGULATION ASSAY1.28High 0.90-1.10UnBellevue HospitalComment on above:Result Comment: ACCCP RECOMMENDED INR FOR [...] RANGE. CHEST 1995;108:231S-246S.Performed By: #### [id number] #### [facility] ([facility]) [address] [place], [place] [address]DHJIEVYCXGL TIME (PT) IN PPP BY COAGULATION ASSAY15.9 Seconds High12.3-14.8UnBellevue HospitalComment on above:Performed By: #### [id number] #### [facility] ([facility]) [address] [place], [place] [address]CGVMGFYSHK PANEL URINEon 67-10-7827JBEIQERYAKS+METHAMPHETAMINE SCREEN (PRESENCE) IN URINENegativeNormalNegativeUnBellevue HospitalComment on above:Performed By: #### [id number] #### [facility] ([facility]) [address] [place], [place] [address]TYXUWZQYIYWK PRESENCE IN URINE BY SCREEN METHODNegativeNormal NegativeUnBellevue HospitalComment on above:Performed By: #### [id number] #### [facility] ([facility]) [address] [place] [place], [place] [address]Gnyyjrwzbzxxlht Ql (U)NegativeNormalNegativeUnBellevue HospitalComment on above:Performed By: #### [id number] #### [facility] ([facility]) [address] [place], [place] [address]YQOGQUNQFAQ (PRESENCE) IN URINE BY SCREEN METHODNegativeNormal NegativeUnBellevue HospitalComment on above:Performed By: #### [id number] #### [facility] ([facility]) [address] [place], [place] [address]Njnuzya Ql (U)NegativeNormalNegativeUnBellevue HospitalComment on above:Performed By: #### [id number] #### [facility] ([facility]) [address] [place], [place] [address]UEKVPJRYO (PRESENCE) IN URINE BY SCREEN METHODNegativeNormal NegativeUnBellevue HospitalComment on above:Performed By: #### [id number] #### [facility] ([facility]) [address] [place], [place] [address]EYZBVIQ (PRESENCE) IN URINE BY SCREEN METHODPositiveAbnormal NegativeUnBellevue HospitalComment on above:Performed By: #### [id number] #### [facility] ([facility]) [address] [place] [place], [place] [address]KCWRSBSGHHRJX PRESENCE IN URINE BY SCREEN METHODNegativeNormal NegativeUnBellevue HospitalComment on above:Performed By: #### [id number] #### [facility] ([facility]) [address] [place] [place], [place] [address]Czpsexpvnepn Screen Ql (U)NegativeNormalNegativeUnBellevue HospitalComment on above:Performed By: #### [id number] #### [facility] ([facility]) [address] [place], [place] [address]DDWRFLFIV ANTIDEPRESSANTS (PRESENCE) IN URINENegativeNormal NegativeMercy Health St. Elizabeth Boardman HospitalComment on above:Performed By: #### [id number] #### [facility] ([facility]) [address] [place], [place] [address]MXURTHZN Ion 49-63-0381Yqrwskkx I.cardiac [Mass/Vol]0.01 ng/mL Normal0.00-0.04UnBellevue HospitalComment on above:Performed By: #### [id number] #### [facility] ([facility]) [address] [place], [place] [address]ASJY AND SCREENon 13-32-5363VV SCREENNegativeNormalUniCleveland Clinic Marymount HospitalComment on above:Performed By: #### [id number] #### [facility] ([facility]) [address] [place], [place] [address]TVA group Nom (Bld)ANormalUniversohiohealth pickerington [facility] Comment on above:Performed By: #### [id number] #### [facility] ([facility]) [address] [place], [place] [address]GW TYPE IN BLOODPositiveNormalUniversohiohealth pickerington [facility] Southeast TexasComment on above:Performed By: #### [id number] #### [facility] ([facility]) [address] [place], [place] [address]LYIALQIJKPex 04-83-0334OJRSMUJDR, TOTAL PRESENCE IN URINE NegativeNormalNegativeMercy Health St. Elizabeth Boardman HospitalComment on above:Order Comment: Microscopics not performed on urines with negative chemical reactions unless requested on original order.Performed By: #### [id number] ####[facility] ([facility])[address] [place], [place] [address]Gxhqucr (U)ClearNormalClear [facility] HospitalComment on above:Order Comment: Microscopics not performed on urines with negative chemical reactions unless requested on original order.Performed By: #### [id number] ####[facility] ([facility])[address] [place], [place] [address]Yqady (U)YellowNormalColorless, Yellow, Light-YellowUnBellevue HospitalComment on above:Order Comment: Microscopics not performed on urines with negative chemical reactions unless requested on original order.Performed By: #### [id number] ####[facility] ([facility])[address] [place], [place] [address]FVKDSAB (MG/DL) IN URINENormalNormal NormalUnBellevue HospitalComment on above:Order Comment: Microscopics not performed on urines with negative chemical reactions unless requested on original order.Performed By: #### [id number] ####[facility] ([facility])[address], [place] [address]OALYYAEZBV PRESENCE IN URINENegative NormalNegativeUnBellevue HospitalComment on above:Order Comment: Microscopics not performed on urines with negative chemical reactions unless requested on original order.Performed By: #### [id number] ####[facility] ([facility])[address] [place], [place] [address]Lzcpbhs Ql (U)NegativeNormalNegative [facility] HospitalComment on above:Order Comment: Microscopics not performed on urines with negative chemical reactions unless requested on original order.Performed By: #### [id number] ####[facility] ([facility])[address] [place], [place] [address]EXVSKBUMI ESTERASE PRESENCE IN URINE BY TEST STRIP NegativeNormalNegativeUnBellevue HospitalComment on above:Order Comment: Microscopics not performed on urines with negative chemical reactions unless requested on original order.Performed By: #### [id number] ####[facility] ([facility])[address] [place], [place] [address]KYDITOA PRESENCE IN URINENegative NormalNegativeMercy Health St. Elizabeth Boardman HospitalComment on above:Order Comment: Microscopics not performed on urines with negative chemical reactions unless requested on original order.Performed By: #### [id number] ####[facility] ([facility])[address] [place], [place] [address]hF (U)6.0 [pH]Normal5.0-8.0UnBellevue HospitalComment on above:Order Comment: Microscopics not performed on urines with negative chemical reactions unless requested on original order.Performed By: #### [id number] ####[facility] ([facility])[address] [place], [place] [address]Xuilnoo (U) [Mass/Vol]NegativeNormalNegative [facility] HospitalComment on above:Order Comment: Microscopics not performed on urines with negative chemical reactions unless requested on original order.Performed By: #### [id number] ####[facility] ([facility])[address] [place], [place] [address]Rdvgbdim gravity (U) [Rel density]1.050High 1.010-1.030UnBellevue HospitalComment on above:Order Comment: Microscopics not performed on urines with negative chemical reactions unless requested on original order.Performed By: #### [id number] ####[facility] ([facility])[address] [place], [place] [address]UXFSUEPIVPMB (MG/DL) IN URINENormal NormalNormalUniversKettering HealthComchildren's hospital [facility] [place] on above:Order Comment: Microscopics not performed on urines with negative chemical reactions unless requested on original order.Performed By: #### [id number] ####[facility] ([facility])[address] [place], [place] [address]XEPIICK D 25 HYDROXYon 09-23-2024 CALCIDIOL (25 [place] VITAMIN D3) (NG/ML) IN SER/PLAS42.6 ng/dZErtdif19.0-80.[address] [facility] HospitalComment on above:Result Comment: >80.0 Toxicity possiblePerformed By: #### [id number] #### [facility] ([place]Y) [address] [place], [place] [address]Qlymmugkcoy Wound Cultureon 29-52-7353Ovqjiqkotax Wound Culture ORGANISM: Methicillin Resis Staph Aureus [...] RESISTANT TO ALL B-LACTAM DRUGS. PERFORMED BY: [place] [address] PATHOLOGIST DIRECTOR HRIS STEVE ANGEL M.D.[facility] Physician GroupComment on above: Performed By: #### CUSUP #### [facility] [address] [place] [address] USACT CSPINE WO CONon [id number] BARIINE WO CONEXAM: CT BARIINE WO CON 12/06/2022 5:22 AM EDT [place]001 [...] Electronically authenticated by: ANGEL SAID Date: 2022-12-06 06:37[facility] HospitalCT FACIAL BONES WO CONon [id number] FACIAL BONES WO CONEXAM: CT FACIAL BONES [...] Electronically authenticated by: ANGEL SAID Date: 2022-12-06 06:41NoMercy Health Kings Mills HospitalCT HEAD WO CONon [id number] HEAD WO CONEXAM: CT HEAD WO CON [...] Electronically authenticated by: ANGEL SAID Date: 2022-12-06 06:39[facility] HospitalXR ELBOW RT MIN 3 VIEWSon [id number] ELBOW RT MIN 3 VIEWS Exam: Radiographs: XR ELBOW RT MIN 3 VIEWS Reason for exam: Elbow pain Comparison: None IMPRESSION: Right elbow degenerative changes. Olecranon spur. Remainder of the right elbow is unremarkable. Electronically authenticated by: MICHAEL CASANOVA Date: 2022-12-06 07:22NoMercy Health Kings Mills HospitalXR FOREARM RT 2Von [id number] FOREARM RT 2VExam: Radiographs: XR FOREARM RT 2V Reason for exam: Forearm pain Comparison: None IMPRESSION: Mild degenerative changes in the right elbow and wrist. Right forearm is otherwise unremarkable. Electronically authenticated by: MICHAEL CASANOVA Date: 2022-12-06 08:07NoMercy Health Kings Mills HospitalPSA, FREE AND TOTAL RATIOon 12-03-2022% Free PSA9.0 %NormalThe [facility] Medical CenterComment on above:Result Comment: The table below lists [...] men.Performed By: #### PSAFREE #### [facility] [address] [place] [address] Dr. Shabnam RaeFormerly [facility] specific Ag [Mass/Vol]5.9 ng/mLCritically high0.0-4.0The [facility] Medical CenterComment on above:Result Comment: Francheska ECLIA methodology. . According to the [employer] [place] [employer], Serum PSA should decrease and [...] disease.Performed By: #### PSAFREE #### [facility] [address] [place] [address] Dr. Shabnam RaePSA, Free0.53 ng/mLNormalN/AThe [facility] CenterComment on above:Result Comment: Francheska ECLIA methodology.Performed By: #### PSAFREE #### [facility] [address] [place] [address] Dr. Shabnam RaeINSULINon 37-74-2110Lfdvthh48.2 uIU/mLNormal2.6-24.9The [facility] CenterComment on above:Performed By: #### PSASC #### [facility] [address] [place] [address] Dr. Shabnam RaeTESTOSTERONE, TOTALon 09-45-4733Tpbqbhdvtemi [Mass/Vol]256 ng/dL Critically gxn274-657Jzy [facility] CenterComment on above:Result Comment: Adult male reference interval is based on a population of healthy nonobese males (BMI <30) between 19 and 39 years old. Dima et.al. JCEM 2017,102;5556-6124. PMID: [id number].Performed By: #### PSASC #### [facility] [address] [place] [address] Dr. Shabnam Dunham AUTO DIFFon 23-48-6473AXVR #0.1 103/ulNormal0.0-0.1St. Charles HospitalComment on above:Performed By: #### PSASC #### [facility] [address] [place] [address] Dr. Shabnam RaeBasophils/100 WBC (Bld)1.0 %Normal0.2-2.0The [facility] Comment on above:Performed By: #### PSASC #### [facility] [address] [place] [address] Dr. Shabnam Rivera #0.1 103/ulNormal0.0-0.7The [facility] CenterComment on above: Performed By: #### PSASC #### [facility] [address] [place] [address] Dr. Shabnam Samosinophils/100 WBC (Bld)1.8 %Normal0.9-7.0[facility] Comment on above:Performed By: #### PSASC #### [facility] [address] [place] [address] Dr. Shabnam Samrythrocyte distribution width (RBC) [Ratio]14.8 %Ohyxlu04.0-15.0 The [facility] CenterComment on above:Performed By: #### PSASC #### [facility] [address] [place] [address] Dr. Shabnam RaeHematocrit (Bld) [Volume fraction]49.9 %Wuiwuo12.0-54.0The [facility] CenterComment on above:Performed By: #### PSASC #### [facility] [address] [place] [address] Dr. Shabnam RaeHemoglobin (Bld) [Mass/Vol]16.0 g/lHNtxloq32.0-18.0The [facility] CenterComment on above:Performed By: #### PSASC #### [facility] [address] [place] [address] Dr. Shabnam Hayward #0.04 10e3/ulCritically high0.00-0.03[facility] Comment on above:Performed By: #### PSASC #### [facility] [address] [place] [address] Dr. Shabnam Hayward %0.6 %Critically high0.0-0.5ThRegency Hospital ToledoComment on above:Performed By: #### PSASC #### [facility] [address] [place] [address] Dr. Shabnam PandyaH #1.0 103/ulCritically low1.2-3.8The [facility] Comment on above:Performed By: #### PSASC #### [facility] [address] [place] [address] Dr. Shabnam Diazmphocytes/100 WBC (Bld)16.2 %Critically low20.5-60.0The [facility] CenterComment on above:Performed By: #### PSASC #### [facility] [address] [place] [address] Dr. Shabnam Daniel DIFF REQNONormalThe [facility] CenterComment on above: Performed By: #### PSASC #### [facility] [address] [place] [address] Dr. Shabnam Nava (RBC) [Entitic mass]27.7 siXxmhoc62.9-34.0The [facility] CenterComment on above:Performed By: #### PSASC #### [facility] [address] [place] [address] Dr. Shabnam Nava (RBC) [Mass/Vol]32.1 g/gGAlmanj37.9-35.2The [facility] CenterComment on above:Performed By: #### PSASC #### [facility] [address] [place] [address] Dr. Shabnam Nava (RBC) [Entitic vol]86.3 bPRuwvqb62.0-94.0The [facility] CenterComment on above:Performed By: #### PSASC #### [facility] [address] [place] [address] Dr. Shabnam Mcfarland #0.5 103/ulNormal0.3-0.8The [facility] CenterComment on above:Performed By: #### PSASC #### [facility] [address] [place] [address] Dr. Shabnam Brunnerocytes/100 WBC (Bld)7.6 %Normal1.7-12.0The [facility] Comment on above:Performed By: #### PSASC #### [facility] [address] [place] [address] Dr. Shabnam Medrano #4.6 103/ulNormal1.4-6.5The [facility] CenterComment on above:Performed By: #### PSASC #### [facility] [address] [place] [address] Dr. Shabnam Larautrophils/100 WBC (Bld)72.8 %Pbvjfg75.0-75.0The [facility] CenterComment on above:Performed By: #### PSASC #### [facility] [address] [address] [address] Shabnam Miranda mean volume (Bld) [Entitic vol]9.8 fLNormal9.5-13.5The [facility] CenterComment on above:Performed By: #### PSASC #### [facility] [address] [address] [address] Shabnam RaePLT203 103/duQmoijv382-298Fcd [facility] CenterComment on above: Performed By: #### PSASC #### [facility] [address] [place] [address] Dr. Shabnam RaeRBC5.78 106/ulNormal4.70-6.10The [facility] CenterComment on above:Performed By: #### PSASC #### [facility] [address] [place] [address] Dr. Shabnam RaeWBC6.3 103/ulNormal4.0-11.0The [facility] CenterComment on above: Performed By: #### PSASC #### [facility] [address] [place] [address] Dr. Shabnam RaeFRPRISCILLA THYROXINE INDEX T7on 91-27-9320DEG4.04Qkgumc2.30-4.50The [facility] CenterComment on above:Performed By: #### TSH, CMP, LIPID, T7, URIC #### [facility] [address] [address] [address] Shabnam RaeT3U33.0 %Dytoqo49.0-40.0The [facility] CenterComment on above: Performed By: #### TSH, CMP, LIPID, T7, URIC #### [facility] [address] [address] [address] Shabnam RaeT4 [Mass/Vol]6.20 ug/dLNormal4.50-12.10The [facility] Comment on above:Performed By: #### TSH, CMP, LIPID, T7, URIC #### [facility] [address] [address] [address] Shabnam RaeGLYCOHEMOGLOBIN A1Con 10-29-2306DFS RECOMMENDATIONSEE BELOWNormal The [facility] CenterComment on above:Result Comment: ADA RECOMMENDED LIMIT 4.0 - 6.0 ADA THERAPEUTIC TARGET < 7.0 ACTION SUGGESTED > 7.0Performed By: #### PSASC #### [facility] [address] [place] [address] Dr. Shabnam RaeGlucose [Mass/Vol]114 mg/dLNoMercy Health Kings Mills HospitalComment on above:Performed By: #### PSASC #### [facility] [address] [place] [address] Dr. Shabnam RaeHbA1c (Bld) [Mass fraction]5.6 %Normal4.5-6.2The [facility] CenterComment on above:Performed By: #### PSASC #### [facility] [address] [place] [address] Dr. Shabnam RaeLIPID PROFILEon 18-45-9743FTOK-HDL RATIO NORMSEE [facility] CenterComment on above:Result Comment: 3.3 - 4.4 LOW RISK 4.4 - 7.1 AVERAGE RISK 7.1 - 11.0 MODERATE RISK >11.0 HIGH RISKPerformed By: #### TSH, CMP, LIPID, T7, URIC #### [facility] [address] [place] [address] Dr. Shabnam Mckeonesterol [Mass/Vol]176 mg/dLNormal<=200The [facility] Comment on above:Performed By: #### TSH, CMP, LIPID, T7, URIC #### [facility] [address] [address] [address] Shabnam RaeCholesterol in HDL [Mass/Vol]48 mg/iMSdxxib79-57Mzy [facility] CenterComment on above:Performed By: #### TSH, CMP, LIPID, T7, URIC #### [facility] [address] [place] [address] Dr. Shabnam Mckeonesterol in LDL [Mass/Vol]108.2 mg/dLNoMercy Health Kings Mills HospitalComment on above:Performed By: #### TSH, CMP, LIPID, T7, URIC #### [facility] [address] [address] [address] Shabnam RaeCholesterol.total/Cholesterol in HDL [Mass ratio]3.7 {ratio} NormalThe [facility] CenterComment on above:Performed By: #### TSH, CMP, LIPID, T7, URIC #### [facility] [address] [address] [address] Shabnam Hanley NORMAL> or = 60 mg/dl - LOW CARDIOVASCULAR RISK <40 mg/dl - HIGH CARDIOVASCULAR RISKMount St. Mary HospitalComment on above:Performed By: #### TSH, CMP, LIPID, T7, URIC #### [facility] [address] [address] [address] Shabnam RaeLDL CALC NORMALSEE BELOWMount St. Mary HospitalComment on above:Result Comment: <100 mg/dl OPTIMAL 100 - 129 mg/dl NEAR OR ABOVE OPTIMAL 130 - 159 mg/dl BORDERLINE HIGH 160 - 189 mg/dl HIGH >190 mg/dl VERY HIGH Performed By: #### TSH, CMP, LIPID, T7, URIC #### [facility] [address] [address] [address] Shabnam RaeTriglyceride [Mass/Vol]99 mg/dLNormal<=150The [facility] Comment on above:Performed By: #### TSH, CMP, LIPID, T7, URIC #### [facility] [address] [address] [address] Shabnam RaeVLDL CALC19.8 mg/dLNoMercy Health Kings Mills HospitalComment on above: Performed By: #### TSH, CMP, LIPID, T7, URIC #### [facility] [address] [address] [address] Shabnam RaePROF 14(COMP METB)on 28-41-3823Wvlllip [Mass/Vol]4.1 g/dLNormal 3.4-5.0The [facility] Ohioment on above:Performed By: #### TSH, CMP, LIPID, T7, URIC #### [facility] [address] [address] [address] Shabnam RaeAlbumin/Globulin [Mass ratio]1.1 {ratio}NormalThe [facility] CenterComment on above:Performed By: #### TSH, CMP, LIPID, T7, URIC #### [facility] [address] [place] [address] Dr. Shabnam Rizzo [Catalytic activity/Vol]101 U/GMwezth99-622Aut [facility] CenterComment on above:Performed By: #### TSH, CMP, LIPID, T7, URIC #### [facility] [address] [place] [address] Dr. Shabnam Sofia [Catalytic activity/Vol]26 U/DKeexsw29-52Afe [facility] CenterComment on above:Performed By: #### TSH, CMP, LIPID, T7, URIC #### [facility] [address] [place] [address] Dr. Shabnam Johnsonon gap [Moles/Vol]10.1 mmol/LNormalThe [facility] Comment on above:Performed By: #### TSH, CMP, LIPID, T7, URIC #### [facility] [address] [place] [address] Dr. Shabnam Jean [Catalytic activity/Vol]19 U/KCmhion36-88Nhs [facility] CenterComment on above:Performed By: #### TSH, CMP, LIPID, T7, URIC #### [facility] [address] [place] [address] Dr. Shabnam RaeBilirubin [Mass/Vol]0.8 mg/dLNormal0.2-1.0[facility] Comment on above:Performed By: #### TSH, CMP, LIPID, T7, URIC #### [facility] [address] [place] [address] Dr. Shabnam RaeCalcium [Mass/Vol]9.5 mg/dLNormal8.5-10.1[facility] Comment on above:Performed By: #### TSH, CMP, LIPID, T7, URIC #### [facility] [address] [place] [address] Dr. Shabnam RaeChloride [Moles/Vol]102 mmol/YAlutkw33-091Hmm [facility] Comment on above:Performed By: #### TSH, CMP, LIPID, T7, URIC #### [facility] [address] [place] [address] Dr. Shabnam RaeCO2 [Moles/Vol]32.4 mmol/LCritically high21.0-32.0The [facility] CenterComment on above:Performed By: #### TSH, CMP, LIPID, T7, URIC #### [facility] [address] [place] [address] Dr. Shabnam RaeCreatinine [Mass/Vol]1.00 mg/dLNormal0.70-1.30The [facility] CenterComment on above:Performed By: #### TSH, CMP, LIPID, T7, URIC #### [facility] [address] [place] [address] Dr. Shabnam SamGFR-AF MONTENEGRIN>60Normal>=60The [facility] CenterComment on above:Performed By: #### TSH, CMP, LIPID, T7, URIC #### [facility] [address] [place] [address] Dr. Shabnam SamGFR-NON AF MONTENEGRIN>60Normal>=60The [facility] CenterComment on above:Performed By: #### TSH, CMP, LIPID, T7, URIC #### [facility] [address] [place] [address] Dr. Shabnam RaeGlobulin (S) [Mass/Vol]3.8 g/dLNormalThe [facility] CenterComment on above:Performed By: #### TSH, CMP, LIPID, T7, URIC #### [facility] [address] [place] [address] Dr. Shabnam RaeGlucose [Mass/Vol]94 mg/aIEemiey55-881HsoSt. Charles Hospital Comment on above:Performed By: #### TSH, CMP, LIPID, T7, URIC #### [facility] [address] [place] [address] Dr. Shabnam RaePotassium [Moles/Vol]3.5 mmol/LNormal3.5-5.1The [facility] Comment on above:Performed By: #### TSH, CMP, LIPID, T7, URIC #### [facility] [address] [place] [address] Dr. Shabnam RaeProtein [Mass/Vol]7.9 g/dLNormal6.4-8.2The [facility] Comment on above:Performed By: #### TSH, CMP, LIPID, T7, URIC #### [facility] [address] [place] [address] Dr. Shabnam RaeSodium [Moles/Vol]141 mmol/FLvytem525-397Pxj [facility] Comment on above:Performed By: #### TSH, CMP, LIPID, T7, URIC #### [facility] [address] [place] [address] Dr. Shabnam RaeUrea nitrogen [Mass/Vol]15.0 mg/dLNormal7.0-18.0The [facility] CenterComment on above:Performed By: #### TSH, CMP, LIPID, T7, URIC #### [facility] [address] [place] [address] Dr. Shabnam RaeUrea nitrogen/Creatinine [Mass ratio]15.0 mg/mgNormalThe [facility] CenterComment on above:Performed By: #### TSH, CMP, LIPID, T7, URIC #### [facility] [address] [place] [address] Dr. Shabnam GoldbergHomeaghan 85-01-1189UEU5.504 uIU/mLNormal0.358-3.740The [facility] CenterComment on above:Performed By: #### TSH, CMP, LIPID, T7, URIC #### [facility] [address] [place] [address] Dr. Shabnam RaeURIC ACID SERUMon 47-68-1689Hpsqo [Mass/Vol]6.9 mg/dLNormal 3.5-7.2The [facility] CenterComment on above:Performed By: #### TSH, CMP, LIPID, T7, URIC #### [facility] [address] [place] [address] Dr. Shabnam RaeTESTOSTERONE, TOTALon 89-71-8126Csmyqqkcvuyk [Mass/Vol]244 ng/dL Critically lwg733-734Ubv [facility] CenterComment on above:Result Comment: Adult male reference interval is based on a population of healthy nonobese males (BMI <30) between 19 and 39 years old. Dima, et.al. [facility] 2017,102;6357-4882. PMID: [id number].Performed By: #### PSAFREE #### [facility] [address] [place] [address] Dr. Shabnam RaeTESTOSTERONE, FREE,DIRECT, TOTALon 22-49-5778Fbnb Testosterone(Direct)2.1 pg/mLCritically low7.2-24.0St. [facility] HospitalComment on above:Result Comment: Performed at: BNPerformed By: #### CVDTBH #### [facility] [address] [place] [address] Dr. Shabnam RaeTestosterone [Mass/Vol]252 ng/dLCritically odo964-100Ggq [facility] CenterComment on above:Result Comment: Adult male reference interval is based on a population of healthy nonobese males (BMI <30) between 19 and 39 years old. Travbrad, et.al. [facility] 2017,102;5037-8498. PMID: [id number]. Performed at: CBPerformed By: #### CVDTBH #### [facility] [address] [place] [address] Dr. Shabnam Ashford 57-61-2838Nijbu [id number]#1.00CD:127[facility] Systemcreenson 58-98-4820Zlbqgkz [id number]#1.00CD:127NoAshtabula General [id number]#1.00CD:127[facility] HospitalUrology Office/Clinic Noteon 25-07-6542Mmdpgyn Office/Clinic NoteChief Complaint referred Hydrocele HPI Staff [...] 02/25/2022 11:15:58. . Documentation recorded by the noelleibHelen ayala, accurately reflects the services(s) I performed and decisions made by me. Authenticated by Dr. Grullon on 02/26/2022 00:19:46. Problem List/Past Medical History Ongoing No qualifying data (more content not included)...[facility] HospitalComment on above:Result Comment: Electronically Signed By: Viola Grullon MD\.br\Date and Time Signed: 02/26/22 00:20EDT\.br\Electronically Co-Signed By: Helen Leung\.br\Date and Time Co-Signed: 02/25/22 11:16 EDTAmbulatory Visit Summaryon 00-67-1812Ukqeswsvdt Visit Summary MATTY GARCES :1970 Visit Date:02/25/2022 Ambulatory Visit Instructions Your Diagnosis Hydrocele Varicocele BPH without urinary obstruction Tests Performed Urnls Dip Stick Auto w/o Microscopy POC 12817 Your Care Team Attending Physician - Viola [...] Appointments Follow Up with Viola Grullon MD, URL, URO When: Where: Test Results Urnls Dip Stick Auto w/o Microscopy POC 52247 (02/25/2022) Bilirubin Urine Dipstick - Negative Blood Urine Dipstick - Negative Glucose Urine Dipstick - Negative Ketones Urine Dipstick - Negative Leukocytes Urine Dipstick - Negative Nitrite Urine Dipstick - Negative Protein Urine Dipstick - Negative Specific [place] Urine Dipstick - >=1.030 Urine Appearance Urine [...] the hydrocele for any changes. ? Take salr-pqx-kdlygzg and prescription medicines only as told by [...] is not intended t (more content not included)...[facility] Educationon 49-79-1786Xfyuhfc EducationUrology Hydrocele, Adult A hydrocele is a [...] the hydrocele for any changes. ? Take hzyx-mam-qjellpr and prescription medicines only as told by [...] Reviewed: 09/10/2018 Elsevier Patient Education ? 2019 Project 10K.[facility] ED Note-Physicianon 43-67-3544AR Note-Physician [id number]#1.00CD:[address] [place], [place] [address]RAD - Ultrasound Reporton 59-04-9823LOV - Ultrasound Report [id number]#1.00CD:[address] [place], [place] [address]RAD - CT Reporton 76-12-2923JMF - CT Report [id number]#1.00CD:[address] [place], [place] [address]RAD - CT [id number]#1.00CD:[address] [place], [place] [address]CBC AUTO DIFFon 39-31-1928QHLF #0.0 103/ulNormal 0.0-0.1The [facility] CenterComment on above:Performed By: #### PSAFRPRISCILLA #### [facility] [address] [address] [address] Shabnam Benavidezphils/100 WBC (Bld)0.6 %Normal0.2-2.0The [facility] Comment on above:Performed By: #### PSAFREE #### [facility] [address] [address] [address] Shabnam Rivera #0.1 103/ulNormal0.0-0.7The [facility] CenterComment on above: Performed By: #### PSAFREE #### [facility] [address] [place] [address] Dr. Shabnam Samosinophils/100 WBC (Bld)2.1 %Normal0.9-7.0The [facility] Comment on above:Performed By: #### PSAFREE #### [facility] [address] [place] [address] Dr. Shabnam Samrythrocyte distribution width (RBC) [Ratio]13.1 %Nzwyrw75.0-15.0 The [facility] CenterComment on above:Performed By: #### PSAFREE #### [facility] [address] [place] [address] Dr. Shabnam RaeHematocrit (Bld) [Volume fraction]43.1 %Weuano25.0-54.0The [facility] CenterComment on above:Performed By: #### PSAFREE #### University [facility] [address] [place] [address] Dr. Shabnam RaeHemoglobin (Bld) [Mass/Vol]13.7 g/dLCritically low14.0-18.0The [facility] CenterComment on above:Performed By: #### PSAFREE #### [facility] [address] [place] [address] Dr. Shabnam Hayward #0.04 10e3/ulCritically high0.00-0.03The [facility] Comment on above:Performed By: #### PSAFREE #### [facility] [address] [place] [address] Dr. Shabnam Hayward %0.6 %Critically high0.0-0.5The [facility] CenterComment on above:Performed By: #### PSAFREE #### [facility] [address] [place] [address] Dr. Shabnam Gomez #0.9 103/ulCritically low1.2-3.8The [facility] Comment on above:Performed By: #### PSAFREE #### [facility] [address] [place] [address] Dr. Shabnam Diazmphocytes/100 WBC (Bld)13.1 %Critically low20.5-60.0The [facility] CenterComment on above:Performed By: #### PSAFREE #### [facility] [address] [place] [address] Dr. Shabnam Daniel DIFF REQNONormalThe [facility] CenterComment on above: Performed By: #### PSAFREE #### [facility] [address] [place] [address] Dr. Shabnam Nava (RBC) [Entitic mass]29.5 nsSzrwca78.9-34.0The [facility] CenterComment on above:Performed By: #### PSAFREE #### [facility] [address] [place] [address] Dr. Shabnam Nava (RBC) [Mass/Vol]31.8 g/kKNmbvqs08.9-35.2The [facility] CenterComment on above:Performed By: #### PSAFREE #### [facility] [address] [place] [address] Dr. Shabnam Nava (RBC) [Entitic vol]92.[address] fWFjjtqo15.0-94.0[facility] HospitalComment on above:Performed By: #### PSAFREE #### [facility] [address] [place] [address] Dr. Shbanam Mcfarland #0.4 103/ulNormal0.3-0.8The [facility] CenterComment on above:Performed By: #### PSAFREE #### [facility] [address] [place] [address] Dr. Shabnam Brunnerocytes/100 WBC (Bld)5.4 %Normal1.7-12.0[facility] Comment on above:Performed By: #### PSAFREE #### [facility] [address] [place] [address] Dr. Shabnam Medrano #5.2 103/ulNormal1.4-6.5The [facility] CenterComment on above:Performed By: #### PSAFREE #### [facility] [address] [place] [address] Dr. Shabnam Larautrophils/100 WBC (Bld)78.2 %Critically high43.0-75.0The [facility] CenterComment on above:Performed By: #### PSAFREE #### [facility] [address] [place] [address] Dr. Shabnam Miranda mean volume (Bld) [Entitic vol]10.9 fLNormal9.5-13.5The [facility] CenterComment on above:Performed By: #### PSAFREE #### [facility] [address] [place] [address] Dr. Shabnam RaePLT153 103/ypDmkljp639-918Qyx [facility] CenterComment on above: Performed By: #### PSAFREE #### [facility] [address] [place] [address] Dr. Shabnam RaeRBC4.64 106/ulCritically low4.70-6.10The [facility] CenterComment on above:Performed By: #### PSAFREE #### [facility] [address] [place] [address] Dr. Shabnam RaeWBC6.6 103/ulNormal4.0-11.0The [facility] CenterComment on above: Performed By: #### PSAFREE #### [facility] [address] [place] [address] Dr. Shabnam Bang 00-42-2617RSE9.9 mg/dLNormal<=1.0The [facility] Comment on above:Performed By: #### PSAFREE #### [facility] [address] [place] [address] Dr. Shabnam Ortiz 14(COMP METB)on 93-44-1751Efuxskh [Mass/Vol]3.6 g/dLNormal 3.4-5.0The [facility] CenterComment on above:Performed By: #### PSAFREE #### [facility] [address] [address] [address] Shabnam RaeAlbumin/Globulin [Mass ratio]1.0 {ratio}NormalThe [facility] CenterComment on above:Performed By: #### PSAFREE #### [facility] [address] [address] [address] Shabnam JohnstonP [Catalytic activity/Vol]114 U/UKpfxxi60-839Aht [facility] CenterComment on above:Performed By: #### PSAFREE #### [facility] [address] [address] [address] Shabnam Sofia [Catalytic activity/Vol]26 U/MJqlbch02-97Aor [facility] CenterComment on above:Performed By: #### PSAFREE #### [facility] [address] [address] [address] Shabnam Johnsonon gap [Moles/Vol]9.3 mmol/LNormalThe [facility] CenterComment on above:Performed By: #### PSAFREE #### [facility] [address] [address] [address] Shabnam RaeAST [Catalytic activity/Vol]19 U/HDglxqh61-04Yvi [facility] CenterComment on above:Performed By: #### PSAFREE #### [facility] [address] [address] [address] Shabnam RaeBilirubin [Mass/Vol]0.5 mg/dLNormal0.2-1.0The [facility] Comment on above:Performed By: #### PSAFREE #### [facility] [address] [address] [address] Shabnam RaeCalcium [Mass/Vol]8.9 mg/dLNormal8.5-10.1The [facility] Comment on above:Performed By: #### PSAFREE #### [facility] [address] [address] [address] Shabnam RaeChloride [Moles/Vol]106 mmol/WZgkzwi15-431Hrs [facility] Comment on above:Performed By: #### PSAFREE #### [facility] [address] [address] [address] Shabnam RaeCO2 [Moles/Vol]30.7 mmol/ZIeocoj71.0-32.0The [facility] Comment on above:Performed By: #### PSAFREE #### [facility] [address] [address] [address] Shabnam RaeCreatinine [Mass/Vol]1.15 mg/dLNormal0.70-1.30The [facility] CenterComment on above:Performed By: #### PSAFREE #### [facility] [address] [address] [address] Shabnam SamGFR-AF MONTENEGRIN>60Normal>=60The [facility] CenterComment on above:Performed By: #### PSAFREE #### [facility] [address] [address] [address] Shabnam SamGFR-NON AF MONTENEGRIN>60Normal>=60The [facility] CenterComment on above:Performed By: #### PSAFREE #### [facility] [address] [address] [address] Shabnam RaeGlobulin (S) [Mass/Vol]3.6 g/dLNormalThe [facility] CenterComment on above:Performed By: #### PSAFREE #### [facility] [address] [address] [address] Shabnam RaeGlucose [Mass/Vol]117 mg/dLCritically ybmu47-975Nfw [facility] CenterComment on above:Performed By: #### PSAFREE #### [facility] [address] [address] [address] Shabnam RaePotassium [Moles/Vol]4.0 mmol/LNormal3.5-5.1The [facility] Comment on above:Performed By: #### PSAFREE #### [facility] [address] [address] [address] Shabnam RaeProtein [Mass/Vol]7.2 g/dLNormal6.1-8.2The [facility] Comment on above:Performed By: #### PSAFREE #### [facility] [address] [address] [address] Shabnam RaeSodium [Moles/Vol]142 mmol/AOhpjmv411-915Smw [facility] Comment on above:Performed By: #### PSAFREE #### [facility] [address] [address] [address] Shabnam RaeUrea nitrogen [Mass/Vol]15.0 mg/dLNormal7.0-18.0The [facility] CenterComment on above:Performed By: #### PSAFREE #### [facility] [address] [address] [address] Shabnam Gu nitrogen/Creatinine [Mass ratio]13.0 mg/mgNormalThe [facility] CenterComment on above:Performed By: #### PSAFREE #### [facility] [address] [address] [address] Shabnam Floyd SCROTUMon 11-22-2056XT SCROTUMEXAMINATION: US SCROTUM HISTORY: Acute pelvic pain [...] Electronically authenticated by: ALVINA CAICEDO Date: 2022-01-05 08:48NormalThCleveland Clinic [facility] AUTO DIFFon [id number] #0.1 103/ulNormal0.0-0.1The [facility] CenterComment on above:Performed By: #### CBC #### [facility] [address] [address] [address] Shabnam RaeBasophils/100 WBC (Bld)0.8 %Normal0.2-2.0The [facility] Comment on above:Performed By: #### CBC #### [facility] [address] [place] [address] Dr. Shabnam Rivera #0.1 103/ulNormal0.0-0.7The [facility] CenterComment on above: Performed By: #### CBC #### [facility] [address] [place] [address] Dr. Shabnam Samosinophils/100 WBC (Bld)1.5 %Normal0.9-7.0The [facility] Comment on above:Performed By: #### CBC #### [facility] [address] [place] [address] Dr. Shabnam Samrythrocyte distribution width (RBC) [Ratio]12.8 %Tmyubi27.0-15.0 [facility] [facility] HospitalComment on above:Performed By: #### CBC #### [facility] [address] [place] [address] Dr. Shabnam RaeHematocrit (Bld) [Volume fraction]40.3 %Critically low42.0-54.0 The [facility] CenterComment on above:Performed By: #### CBC #### [facility] [address] [place] [address] Dr. Shabnam RaeHemoglobin (Bld) [Mass/Vol]13.4 g/dLCritically low14.0-18.0The [facility] CenterComment on above:Performed By: #### CBC #### [facility] [address] [address] [address] Shabnam Hayward #0.03 10e3/ulNormal0.00-0.03The [facility] CenterComment on above:Performed By: #### CBC #### [facility] [address] [address] [address] Shabnam Hayward %0.5 %Normal0.0-0.5The [facility] CenterComment on above: Performed By: #### CBC #### [facility] [address] [address] [address] Shabnam Gomez #1.0 103/ulCritically low1.2-3.8The [facility] Comment on above:Performed By: #### CBC #### [facility] [address] [place] [address] Dr. Shabnam Pandyahocytes/100 WBC (Bld)16.4 %Critically low20.5-60.0The [facility] CenterComment on above:Performed By: #### CBC #### [facility] [address] [place] [address] Dr. Shabnam GranadoUAL DIFF REQNONormalThe [facility] CenterComment on above: Performed By: #### CBC #### [facility] [address] [place] [address] Dr. Shabnam Nava (RBC) [Entitic mass]29.5 uhDutdjn54.9-34.0The [facility] CenterComment on above:Performed By: #### CBC #### [facility] [address] [place] [address] Dr. Shabnam Nava (RBC) [Mass/Vol]33.3 g/iVWzbuwt92.9-35.2The [facility] CenterComment on above:Performed By: #### CBC #### [facility] [address] [place] [address] Dr. Shabnam Nava (RBC) [Entitic vol]88.8 wVWzuind42.0-94.0The [facility] CenterComment on above:Performed By: #### CBC #### [facility] [address] [address] [address] Shabnam Mcfarland #0.6 103/ulNormal0.3-0.8The [facility] CenterComment on above:Performed By: #### CBC #### [facility] [address] [address] [address] Shabnam Brunnerocytes/100 WBC (Bld)9.6 %Normal1.7-12.0The [facility] Comment on above:Performed By: #### CBC #### [facility] [address] [place] [address] Dr. Shabnam Medrano #4.4 103/ulNormal1.4-6.5The [facility] CenterComment on above:Performed By: #### CBC #### [facility] [address] [place] [address] Dr. Shabnam Larautrophils/100 WBC (Bld)71.2 %Vlqwqn64.0-75.0The [facility] CenterComment on above:Performed By: #### CBC #### [facility] [address] [place] [address] Dr. Shabnam Miranda mean volume (Bld) [Entitic vol]10.8 fLNormal9.5-13.5The [facility] CenterComment on above:Performed By: #### CBC #### [facility] [address] [place] [address] Dr. Shabnam RaePLT158 103/bdKhlzdp162-602Nxz [facility] CenterComment on above: Performed By: #### CBC #### [facility] [address] [place] [address] Dr. Shabnam RaeRBC4.54 106/ulCritically low4.70-6.10The [facility] CenterComment on above:Performed By: #### CBC #### [facility] [address] [place] [address] Dr. Shabnam RaeWBC6.2 103/ulNormal4.0-11.0The [facility] CenterComment on above: Performed By: #### CBC #### [facility] [address] [address] [address] Shabnam RaeCT ABD/PELV W CONon [id number] ABD/PELV W CONCT ABD/PELV W CON: 01/04/2022 [...] BERNAL Date: 2022-01-04 05:19Normal The [facility] CenterCT PELVIS WO CONon [id number] PELVIS WO CONEXAMINATION: CT PELVIS WO CON [...] Electronically authenticated by: MANUEL HOUGH Date: 2022-01-04 08:54NormAshtabula County Medical CenterCULTURE URINEon [id number] URINECulture Observations: No growthNoMercy Health Kings Mills HospitalComment on above:Performed By: #### PSASC #### [facility] [address] [address] [address] Shabnam Mckinney-19 PCR ([facility])on 89-51-2150LIZH-CoV-2 (COVID-19) RNA ELIJAH+probe Ql (Unsp spec)Not detectedNormalNOT DETECTEDThe [facility] Comment on above:Result Comment: When diagnostic testing is negative, the possibility of a false negative should be considered in the context of a patient's recent exposures and the presence of clinical signs and symptoms consistent with SARS-CoV-2. This test is not yet approved or cleared by the [place] Food and Drug Administration (FDA). This test was developed by [employer], [place], [place]. The performance characteristics of this test were validated by The [facility]. The results are not intended to be used as the sole means for clinical diagnosis or patient management decisions. The [facility] is authorized under Clinical Laboratory [...] for this test is supported by the Table Cover Folder of Health and Human Service's declaration that [...] used).Performed By: #### CVDTBH #### [facility] [address] [place] [address] Dr. Shabnam Cedillo URINE PROFILEon 62-79-7415Nfvfpwbph Ql (U)NegativeNormal NEGATIVEThe [facility] CenterComment on above:Performed By: #### PSASC #### [facility] [address] [place] [address] Dr. Shabnam Haile (U)CLEARNormalCLEARThe [facility] CenterComment on above: Performed By: #### PSASC #### [facility] [address] [place] [address] Dr. Shabnam Mason (U)YELLOWNormalYELLOWPremier Health Miami [facility] Hospital North on above: Performed By: #### PSASC #### [facility] [address] [place] [address] Dr. Shabnam Plummer micrscopic examination will be performed if indicated. NormalThe [facility] CenterComment on above:Performed By: #### PSASC #### [facility] [address] [address] [address] Shabnam RaeGlucose Ql (U)NegativeNormalNEGATIVESt. Charles HospitalComment on above:Performed By: #### PSASC #### [facility] [address] [address] [address] Shabnam RaeHemoglobin Ql (U)NegativeNormalNEGATIVESt. Charles Hospital Comment on above:Performed By: #### PSASC #### [facility] [address] [address] [address] Shabnam RaeKetones Ql (U)NegativeNormalNEGATIVESt. Charles HospitalComment on above:Performed By: #### PSASC #### [facility] [address] [place] [address] Dr. Shabnam RaeLEUKOCYTESNegativeNormalNEGATIVESt. Charles HospitalComment on above:Performed By: #### PSASC #### [facility] [address] [place] [address] Dr. Shabnam RaeNitrite Ql (U)NegativeNormalNEGATIVESt. Charles HospitalComment on above:Performed By: #### PSASC #### [facility] [address] [place] [address] Dr. Shabnam RaepH (U)6.5 [pH]Normal5-9St. [facility] HospitalComment on above: Performed By: #### PSASC #### [facility] [address] [address] [address] Shabnam RaeSPEC GRAVITY1.053Vvksbk9.005-<=1.025St. [facility] HospitalComment on above:Performed By: #### PSASC #### [facility] [address] [place] [address] Dr. Shabnam RaeUA PROTEINNegativeNormalNEGATIVE/ TRACESt. Charles Hospital Comment on above:Performed By: #### PSASC #### [facility] [address] [place] [address] Dr. Shabnam RaeUR MICRO INDNOT INDICATEDNoalThRegency Hospital ToledoComment on above:Performed By: #### PSASC #### [facility] [address] [place] [address] Dr. Shabnam Wubilinogen Qn (U)0.2 {Sarai'U}/dLNormal0.2 - 1.0The [facility] CenterComment on above:Performed By: #### PSASC #### [facility] [address] [place] [address] Dr. Shabnam RaeLACTATE/LACTIC ACIDon 08-65-5416Whklqdc [Moles/Vol]1.0 mmol/L Normal0.4-2.0The [facility] CenterComment on above:Performed By: #### PSASC #### [facility] [address] [place] [address] Dr. Shabnam MoonF CHEM 8 (BAS METB)on 82-29-6248Fibhg gap [Moles/Vol]10.0 mmol/LNormalThe [facility] CenterComment on above:Performed By: #### BMP #### [facility] [address] [place] [address] Dr. Shabnam RaeCalcium [Mass/Vol]8.5 mg/dLNormal8.5-10.1The [facility] Comment on above:Performed By: #### BMP #### [facility] [address] [place] [address] Dr. Shabnam RaeChloride [Moles/Vol]103 mmol/MBzwcwy74-666Hlv [facility] Comment on above:Performed By: #### BMP #### [facility] [address] [place] [address] Dr. Shabnam RaeCO2 [Moles/Vol]29.2 mmol/ZUtkjvw78.0-32.0The [facility] Comment on above:Performed By: #### BMP #### [facility] [address] [place] [address] Dr. Shabnam RaeCreatinine [Mass/Vol]1.25 mg/dLNormal0.70-1.30The [facility] CenterComment on above:Performed By: #### BMP #### [facility] [address] [place] [address] Dr. Shabnam SamGFR-AF MONTENEGRIN>60Normal>=60The [facility] CenterComment on above:Performed By: #### BMP #### [facility] [address] [place] [address] Dr. Shabnam SamGFR-NON AF MONTENEGRIN>60Normal>=60The [facility] CenterComment on above:Performed By: #### BMP #### [facility] [address] [place] [address] Dr. Shabnam RaeGlucose [Mass/Vol]132 mg/dLCritically jzts14-988Gjv [facility] CenterComment on above:Performed By: #### BMP #### [facility] [address] [place] [address] Dr. Shabnam RaePotassium [Moles/Vol]3.2 mmol/LCritically low3.5-5.1The [facility] CenterComment on above:Performed By: #### BMP #### [facility] [address] [place] [address] Dr. Shabnam RaeSodium [Moles/Vol]139 mmol/RBzotwa411-370Pwu [facility] Comment on above:Performed By: #### BMP #### [facility] [address] [place] [address] Dr. Shabnam RaeUrea nitrogen [Mass/Vol]19.0 mg/dLCritically high7.0-18.0The [facility] CenterComment on above:Performed By: #### BMP #### [facility] [address] [place] [address] Dr. Shabnam RaeUrea nitrogen/Creatinine [Mass ratio]15.2 mg/mgNormalThe [facility] CenterComment on above:Performed By: #### BMP #### [facility] [address] [place] [address] Dr. Shabnam RaeCERVICAL SPINE 2 OR 3 [facility] [id number] SPINE 2 OR 3 [facility] Department of Radiology [address] [place] [phone] Patient Name: MATTY GARCES : 1970 Sex: M Age: Race: White Pt. Location: 85 Patient Status: O Ordered Date: 07/06/2019 9:10:00 AM Completed Date: 07/06/2019 09:21 AM Requesting Provider: LUCIANO DAVIS Attending Provider: LUCIANO DAVIS Report Copy To: VENUS JAEGER Signs & Symptoms: M48.02 Spinal stenosis, cervical region I10 History: [place] Comments: , STAT READ , STAT READ [...] findings. Electronically signed by:Bernice Hoyt. Transcribed by: [email or web address], User Resident: RADHA CHIN Electronically Signed by: BERNICE HOYT @ 07/06/2019 08:52 PM I personally read this/these film(s) with this residentRiverside Methodist HospitalComment on above:Order Comment: , STAT READ , STAT READ , , , Ordering Provider - LUCIANO DAVIS MD , CERVICAL SPINE 2 OR 3 [facility] [id number] SPINE 2 OR 3 [facility] Department of [facility]iology [address] [place] [id number] Patient Name: MATTY GARCES : 1970 [...] FALLS Exam: CERVICAL SPINE 2 OR 3 [facility] 2 [facility] 3 [facility] [facility] 04/06/2019 7:28 AM EDT SIGNS [...] study. Electronically signed by:Bernice Hoyt. Transcribed by: [id number], User Resident: Electronically Signed by: BERNICE HOYT @ 04/06/2019 04:40 [facility] CenterComment on above:Order Comment: AP/LAT, ODONTOID PLEASE DO SWIMMER'S VIEW FOLLOW UP HARDWARE AND ALIGNMENT, S/P ACDF, RECENT FALLSCERVICAL SPINE 2 OR 3 [facility] [id number] SPINE 2 OR 3 [facility] Department of Radiology [address] [place] [phone] Patient Name: MATTY GARCES : 1970 [...] findings. Electronically signed by:Bella King. Transcribed by: [email or web address], User Resident: KENNETH DUVAL Electronically Signed by: BELLA KING @ 02/20/2019 11:53 AM I personally read this/these film(s) with this residentRiverside Methodist HospitalComment on above:Order Comment: C-SPINE 2 OR 3 VIEW POSTOP, EVALUATION HARDWARE AN ALIGNMENTBASIC METABOLIC PANELon 69-65-7451Knzkefv [Mass/Vol]9.2 mg/dLNormal8.6-10.3The [facility] HospitalComment on above:Order Comment: No: Do not add to previous drawPerformed By: #### 99227 #### [facility] [address] [place] [address], USAChloride [Moles/Vol]101 mmol/EUvnowi17-543Gbc [facility] HospitalComment on above:Order Comment: No: Do not add to previous drawPerformed By: #### 55607 #### [facility] [address] [place] [address], USACO2 [Moles/Vol]26 mmol/QImhtfb56-62Xti [facility] HospitalComment on above:Order Comment: No: Do not add to previous draw Performed By: #### 59802 #### [facility] [address] [place] [address], USACreatinine [Mass/Vol]1.02 mg/dLNormal0.70-1.30The [facility] HospitalComment on above:Order Comment: No: Do not add to previous drawPerformed By: #### 32231 #### [facility] [address] [place] [address], USAGFR/1.73 sq M predicted among blacks MDRD (S/P/Bld) [Vol rate/Area]mL/min/{1.73_m2}Normal>60The [facility] Comment on above:Order Comment: No: Do not add to previous drawPerformed By: #### 90846 #### [facility] [address] [place] [address], USAGFR/1.73 sq M predicted among non-blacks MDRD (S/P/Bld) [Vol rate/Area]mL/min/{1.73_m2}Normal>60The [facility] Comment on above:Order Comment: No: Do not add to previous drawPerformed By: #### 19505 #### [facility] [address] [place] [address], USAGlucose [Mass/Vol]124 mg/wAPwsn84-541Suc [facility] HospitalComment on above:Order Comment: No: Do not add to previous drawPerformed By: #### 97191 #### [facility] [address] [place] [address], USAPotassium [Moles/Vol]3.9 mmol/LNormal3.5-5.1The [facility] HospitalComment on above:Order Comment: No: Do not add to previous drawPerformed By: #### 67500 #### [facility] [address] [place] [address], USASodium [Moles/Vol]137 mmol/FFyfbue255-395Vrl [facility] HospitalComment on above:Order Comment: No: Do not add to previous drawPerformed By: #### 36837 #### [facility] [address] [place] [address], USAUrea nitrogen [Mass/Vol]15 mg/dLNormal7-25The [facility] HospitalComment on above:Order Comment: No: Do not add to previous drawPerformed By: #### 80994 #### [facility] [address] [place] [address], USACBC COMPLETE BLOOD COUNTon 39-05-7771Drtntusuuab distribution width (RBC) [Ratio]13.9 %Uzjjpn06.5-15.0The [facility] HospitalComment on above:Order Comment: No: Do not add to previous draw Performed By: #### 44644 #### [facility] [address] [place] [address], USAHematocrit (Bld) [Volume fraction]50.0 %Musgel98.0-50.0The [facility] HospitalComment on above:Order Comment: No: Do not add to previous drawPerformed By: #### 83620 #### [facility] [address] [place] [address], USAHemoglobin (Bld) [Mass/Vol]16.0 g/pCRmzwlx77.0-17.0The [facility] HospitalComment on above:Order Comment: No: Do not add to previous drawPerformed By: #### 78991 #### [facility] [address] [place] [address], [facility] TREATMENT CENTERMCH (RBC) [Entitic mass]27.5 nzEgdeir16.0-33.0The [facility] HospitalComment on above:Order Comment: No: Do not add to previous drawPerformed By: #### 02984 #### [facility] [address] [place] [address], [facility] TREATMENT CENTERMCHC (RBC) [Mass/Vol]32.0 g/sUZcwtnn55.0-35.0The [facility] HospitalComment on above:Order Comment: No: Do not add to previous drawPerformed By: #### 59058 #### [facility] [address] [place] [address], [facility] TREATMENT CENTERMCV (RBC) [Entitic vol]85.9 nAHwlurp62.0-98.0The [facility] HospitalComment on above:Order Comment: No: Do not add to previous drawPerformed By: #### 95968 #### [facility] [address] [place] [address], USANucleated RBC/100 WBC (Bld) [Ratio]0 %Normal0-0The [facility] HospitalComment on above:Order Comment: No: Do not add to previous drawPerformed By: #### 73579 #### [facility] [address] [place] [address], USAPLAT XNY656 10*3/vQFxwqkk597-858Mhc [facility] HospitalComment on above:Order Comment: No: Do not add to previous draw Performed By: #### 83209 #### [facility] [address] [place] [address], USARBC (Bld) [#/Vol]5.82 10*6/uLHigh4.20-5.70The [facility] HospitalComment on above:Order Comment: No: Do not add to previous drawPerformed By: #### 27233 #### [facility] [address] [place] [address], USAWBC (Bld) [#/Vol]15.85 10*3/uLHigh4.00-10.60The [facility] HospitalComment on above:Order Comment: No: Do not add to previous drawPerformed By: #### 50851 #### [facility] [address] [place] [address], [facility] TREATMENT CENTEROperative Reporton [id number] ReportMR#: [id number] [facility] Pt. Name: Matty Garces Room #: [id number] Discharge Date: Birthdate: 1970 OPERATIVE REPORT DATE OF SURGERY: 01/30/2019 SURGEON: Luciano Davis M.D. 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 POSTOPERATIVE DIAGNOSIS: Failed instrumentation at C6-7 on the right. 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 ANESTHESIA: Endotracheal, Hogan. PROCEDURES: [...] P/Luciano Davis M.D. Date Trans: 01/31/2019 02:31 Eze/sasha DN_JN:[id number] cc: Venus Jaeger M.D. [address] [place] [address]RaanseAtiRiverside Methodist HospitalCERVICAL SPINE 2 OR 3 Son 02-70-1163TFEDSFVK SPINE 2 OR 3 [facility]ERNARDINOniC[facility] Clinic [facility] Department of Radiology [address] [place] [phone] Patient Name: MATTY GARCES : 1970 [...] documentation Electronically signed by:Justus Murphy. Transcribed by: [email or web address], User Resident: Electronically Signed by: JUSTUS MURPHY @ 01/30/2019 04:[address] [facility] HospitalComment on above:Order Comment: C6-7 ACDFPOC GLUCOSE LABon 10-14-9879Lxtezoy [Mass/Vol]106 mg/jPGvmw14-690Nnr [facility] HospitalComment on above:Performed By: #### 26327 #### [facility] [address] [facility] [place] [address], [facility]*MRSA/MSSA DNA NASALon 01-23-2019*MRSA/MSSA DNA NASAL Clinical Report: (D) Specimen: NASAL SWAB Collected: 01/23/2019 15:02 Status: Final Last Updated: 01/23/2019 20:14 MSSA DNA (Final) Methicillin Susceptible Staphylococcus aureus DNA Detected MRSA DNA (Final) No Methicillin Resistant Staphylococcus aureus DNA DetectedNoMercy Health Clermont HospitalComment on above:Performed By: #### 63926 #### [facility] [address] [facility] [place] [address], [facility] TREATMENT CENTERAPTTon 72-68-3585eSLJ Coag (Bld) [Time]35.4 sHigh25.0-35.[address] [facility] HospitalComment on above:Result Comment: ALL RESULTS MUST BE [...] BE USED FOR THIS PURPOSE.Performed By: #### 07904, 87356 #### [facility] [address] [facility] [place] [address], USABASIC METABOLIC PANELon 14-28-3650Lgnrwlf [Mass/Vol]9.5 mg/dLNormal8.6-10.3The [facility] HospitalComment on above: Performed By: #### 66068, 05469 #### [facility] [address] [facility] [place] [address], USAChloride [Moles/Vol]101 mmol/IAtvpos56-304Qmn [facility] HospitalComment on above:Performed By: #### 78125, 15752 #### [facility] [address] [place] [address], USACO2 [Moles/Vol]29 mmol/NRxvwbi72-20Yrx [facility] HospitalComment on above:Performed By: #### 11777, 82565 #### [facility] [address] [place] [address], USACreatinine [Mass/Vol]1.08 mg/dLNormal0.70-1.30The [facility] HospitalComment on above:Performed By: #### 44196, 72762 #### [facility] [address] [place] [address], USAGFR/1.73 sq M predicted among blacks MDRD (S/P/Bld) [Vol rate/Area]mL/min/{1.73_m2}Normal>60The [facility] Comment on above:Performed By: #### 46891, 43996 #### [facility] [address] [place] [address], USAGFR/1.73 sq M predicted among non-blacks MDRD (S/P/Bld) [Vol rate/Area]mL/min/{1.73_m2}Normal>60The [facility] Comment on above:Performed By: #### 64301, 33372 #### [facility] [address] [place] [address], USAGlucose [Mass/Vol]87 mg/wTIhekdg91-050Mjf [facility] HospitalComment on above:Performed By: #### 89018, 47587 #### [facility] [address] [place] [address], USAPotassium [Moles/Vol]4.0 mmol/LNormal3.5-5.1The [facility] HospitalComment on above:Performed By: #### 88580, 38911 #### [facility] [address] [facility] [place] [address], USASodium [Moles/Vol]137 mmol/CShxyce146-241Goo [facility] HospitalComment on above:Performed By: #### 73934, 14472 #### [facility] [address] [facility] [address], USAUrea nitrogen [Mass/Vol]12 mg/dLNormal7-25The [facility] HospitalComment on above:Performed By: #### 35298, 11596 #### [facility] [address] [facility] [address], [facility] TREATMENT CENTERCBC W/DIFFon 07-60-2245APV BASOPHILS0.1 10*3/uLNormal 0.0-0.2The [facility] HospitalComment on above:Performed By: #### 67960, 83017 #### [facility] [address] [facility] [address], USAABS IMM GRANS0.0 10*3/uLNormal0.0-0.2The [facility] HospitalComment on above:Performed By: #### 25808, 40425 #### [facility] [address] [facility] [address], USAABS NEUTROPHILS5.3 10*3/uLNormal1.6-7.6The [facility] HospitalComment on above:Performed By: #### 83115, 16207 #### [facility] [address] [facility] [place] [address], USABasophils/100 WBC (Bld)0.9 %Normal0.0-1.0The [facility] HospitalComment on above:Performed By: #### 40485, 67841 #### [facility] [address] [facility] [place] [address], USAEosinophils (Bld) [#/Vol]0.2 10*3/uLNormal0.0-0.5The [facility] HospitalComment on above:Performed By: #### 62363, 88047 #### [facility] [address] [place] [address], USAEosinophils/100 WBC (Bld)2.3 %Normal0.0-6.0The [facility] HospitalComment on above:Performed By: #### 18889, 22600 #### [facility] [address] [place] [address], USAErythrocyte distribution width (RBC) [Ratio]13.8 %Normal 11.5-15.0The [facility] HospitalComment on above:Performed By: #### 87080, 63537 #### [facility] [address] [place] [address], USAHematocrit (Bld) [Volume fraction]49.6 %Sbjbdx55.0-50.0The [facility] HospitalComment on above:Performed By: #### 40410, 50215 #### [facility] [address] [place] [address], USAHemoglobin (Bld) [Mass/Vol]16.4 g/wDBuwaph95.0-17.0The [facility] HospitalComment on above:Performed By: #### 56069, 04408 #### [facility] [address] [place] [address], USAIMMATURE GRANS0.5 %Normal0.0-1.0The [facility] HospitalComment on above:Performed By: #### 99393, 72556 #### [facility] [address] [place] [address], USALymphocytes (Bld) [#/Vol]1.2 10*3/uLNormal1.2-4.0The [facility] HospitalComment on above:Performed By: #### 84212, 34089 #### [facility] [address] [place] [address], USALymphocytes/100 WBC (Bld)16.6 %Low20.0-45.0The [facility] HospitalComment on above:Performed By: #### 54046, 69003 #### [facility] [address] [place] [address], [facility] (RBC) [Entitic mass]27.8 cfRbdynk75.0-33.0The [facility] HospitalComment on above:Performed By: #### 23084, 15083 #### [facility] [address] [facility] [place] [address], [facility] TREATMENT CENTERMCHC (RBC) [Mass/Vol]33.1 g/vMCxhjxo20.0-35.0The [facility] HospitalComment on above:Performed By: #### 80156, 42612 #### [facility] [address] [facility] [place] [address], [facility] TREATMENT CENTERMCV (RBC) [Entitic vol]84.2 hOVfitfe04.0-98.0The [facility] HospitalComment on above:Performed By: #### 22536, 01021 #### [facility] [address] [facility] [place] [address], USAMonocytes (Bld) [#/Vol]0.7 10*3/uLNormal0.1-1.0The [facility] HospitalComment on above:Performed By: #### 22721, 45779 #### [facility] [address] [facility] [place] [address], USAMONOS9.4 %Normal5.0-12.0The [facility] HospitalComment on above:Performed By: #### 07333, 92401 #### [facility] [address] [facility] [place] [address], USANeutrophils/100 WBC (Bld)70.3 %Kdyvin02.0-72.0The [facility] HospitalComment on above:Performed By: #### 51839, 85053 #### [facility] [address] [place] [address], USANucleated RBC/100 WBC (Bld) [Ratio]0 %Normal0-0The [facility] HospitalComment on above:Performed By: #### 00902, 56105 #### [facility] [address] [place] [address], USAPLAT MEN565 10*3/tUDomcyp597-255Kqo [facility] HospitalComment on above:Performed By: #### 77524, 66491 #### [facility] [address] [facility] [place] [address], USARBC (Bld) [#/Vol]5.89 10*6/uLHigh4.20-5.70The [facility] HospitalComment on above:Performed By: #### 93925, 38983 #### [facility] [address] [facility] [place] [address], USAWBC (Bld) [#/Vol]7.48 10*3/uLNormal4.00-10.60The [facility] HospitalComment on above:Performed By: #### 68927, 03532 #### [facility] [address] [address], USAPROTHROMBIN TIMEon 55-86-6636KAP Coag (PPP) [Relative time] 1.12 {INR}Normal0.91-1.16The [facility] HospitalComment on above:Result Comment: ACCCP RECOMMENDED INR FOR [...] OPTIMAL THERAPEUTIC RANGE. CHEST 1995;108:231S-246S.Performed By: #### 30533, 78899 #### [facility] [address] [place] [address], USAPT Coag (PPP) [Time]14.4 iDmelpd15.3-14.8The [facility] HospitalComment on above:Result Comment: ALL RESULTS MUST BE INTERPRETED WITH RESPECT TO BLOOD DRAWING ARTIFACT OR DILUTION ERROR OF ANTICOAGULANT AT THE TIME OF SAMPLING.Performed By: #### 54790, 78983 #### [facility] [address] [facility] [place] [address], USATYPE AND SCREENon 03-80-3525IIP INTERPRETATIONANoMercy Health Clermont HospitalComment on above:Performed By: #### 75996, 36611 #### [facility] [address] [facility] [place] [address], USARH INTERPRETATIONPositiveNoMercy Health Clermont HospitalComment on above:Performed By: #### 20112, 73739 #### [facility] [address] [facility] [place] [address], USACT 3D CERVICAL SPINE WO CONTRASTon 80-38-2540MA 3D CERVICAL SPINE WO CONTRASTUnBellevue Hospital Department of Radiology [address] [place] [address] Patient Name: MATTY GARCES : 1970 Sex: M Age: Race: White Pt. Location: 85 Patient Status: D Ordered Date: 01/10/2019 2:15:00 PM Completed Date: 01/12/2019 10:32 AM Requesting Provider: LUCIANO DAVIS Attending Provider: LUCIANO DAVIS Report Copy To: VENUS JAEGER Signs & Symptoms: M48.02 Spinal stenosis, cervical region I10 History: [place] para auth # [id number] 01/10/19-02/09/19 [id number] *er Comments: Exam: CT 3D CERVICAL SPINE [...] incomplete Electronically signed by:Ten Uriarte. Transcribed by: [email or web address], User Resident: Electronically Signed by: TEN URIARTE @ 01/13/2019 09:18 [facility] 2 [facility] 3 [facility] 01-05-2019 CERVICAL SPINE 2 OR 3 SUniCleveland Clinic [facility] Department of Radiology [address] [place] [phone] Patient Name: MATTY GARCES : 1970 Sex: M Age: Race: White Pt. Location: Patient Status: O Ordered Date: 01/05/2019 9:00:00 AM Completed Date: 01/05/2019 09:06 AM Requesting Provider: LUCIANO DAVIS Attending Provider: LUCIANO DAVIS Report Copy To: Signs & Symptoms: M48.02 Spinal stenosis, cervical region I10 History: [place] Comments: , , , Ordering Provider - LUCIANO DAVIS MD , Exam: CERVICAL SPINE 2 OR 3 [facility] CERVICAL SPINE 2 OR 3 [facility] 01/05/2019 [...] findings. Electronically signed by:Ten Uriarte. Transcribed by: [email or web address], User Resident: SHELLY DELA CRUZ Electronically Signed by: TEN URIARTE @ 01/05/2019 12:37 PM I personally read this/these film(s) with this residentRiverside Methodist HospitalComment on above:Order Comment: , , , Ordering Provider - LUCIANO DAVIS MD , CERVICAL SPINE 2 OR 3 [facility] 71-58-1224LOLQVPOI SPINE 2 OR 3 SUniC[facility] Department of Radiology [address] [place] [phone] Patient Name: MATTY GARCES : 1970 Sex: M Age: Race: White Pt. Location: 85 Patient Status: O Ordered Date: 08/30/2018 9:35:00 AM Completed Date: 08/30/2018 09:43 AM Requesting Provider: LUCIANO DAVIS Attending Provider: LUCIANO DAVIS Report Copy To: VENUS JAEGER Signs & Symptoms: M50.90 Cervical disc disorder, unsp, unspecified cervical region I10 History: [place] Comments: , POST OP XRAY AP/LAT ONLY [...] findings. Electronically signed by:Bella King. Transcribed by: [email or web address], User Resident: RYAN ANDERSON Electronically Signed by: BELLA KING @ 08/30/2018 05:45 PM I personally read this/these film(s) with this residentRiverside Methodist HospitalComment on above:Order Comment: , POST OP XRAY AP/LAT ONLY , POST OP XRAY AP/LAT ONLY , , , Ordering Provider - LUCIANO DAVIS MD , Operative Reporton [id number] ReportMR#: [id number] [facility] Pt. Name: Matty Garces Room #: [id number] Discharge Date: Birthdate: 1970 OPERATIVE REPORT DATE OF SURGERY: 08/17/2018 SURGEON: Luciano Davis M.D. PREOPERATIVE DIAGNOSIS: Herniated cervical disk at C6-7. POSTOPERATIVE DIAGNOSIS: Herniated cervical disk at C6-7. 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 ANESTHESIA: Endotracheal, Braida. PROCEDURE: [...] Davis M.D. Date Trans: 08/17/2018 11:25 P/sasha DN_JN:[id number] cc: Venus Jaeger M.D. [address] [place] [address]GrflpsLhqRiverside Methodist HospitalCERVICAL SPINE 2 OR 3 VWSon 41-67-5308MGAETTGT SPINE 2 OR 3 [facility] BERNARDINOniCleveland Clinic [facility] Department of Radiology [address] [place] [address] Patient Name: MATTY GARCES : [...] findings. Electronically signed by:Bernice Hoyt. Transcribed by: [email or web address], User Resident: KENNETH DUVAL Electronically Signed by: BERNICE HOYT @ 08/18/2018 01:06 PM I personally read this/these film(s) with this [facility] HospitalComment on above:Order Comment: C6-7 ACDF with POC GLUCOSE LABon 56-99-4246Ptjkivz [Mass/Vol]113 mg/eMPwon80-574QgpCleveland Clinic Euclid HospitalComment on above:Performed By: #### 45015 #### [facility] [address] [place] [address], USARBC'S 2 UNITSon 42-84-4883WZLFIELOWZ INTERP 1COhioHealth Doctors HospitalComment on above:Performed By: #### 85011 #### [facility] [address] [place] [address], USACROSSMATCH INTERP 2COhioHealth Doctors HospitalComment on above:Performed By: #### 44855 #### [facility] [address] [place] [address], USAPRODUCT CODE [id number] Methodist HospitalComment on above:Performed By: #### 62438 #### [facility] [address] [place] [address], USAPRODUCT CODE [id number] Methodist HospitalComment on above:Performed By: #### [id number] #### [facility] [address] [place] [address], USAPRODUCT STATUS 1ROhioHealth Grady Memorial HospitalComment on above:Result Comment: Result changed by IF on 08/20/2018 07:48. The previous value was XM.Performed By: #### [id number] #### [facility] [address] [place] [address], USAPRODUCT STATUS 2ROhioHealth Grady Memorial HospitalComment on above:Result Comment: Result changed by IF on 08/20/2018 07:48. The previous value was XM.Performed By: #### [id number] #### [facility] [address] [place] [address], USAUNIT ABO 1ARiverside Methodist Hospital Comment on above:Performed By: #### [id number] #### [facility] [address] [place] [address], USAUNIT ABO 2ARiverside Methodist Hospital Comment on above:Performed By: #### [id number] #### [facility] [address] [place] [address], USAUNIT ID [id number] Clinic Euclid HospitalComment on above:Performed By: #### [id number] #### [facility] [address] [place] [address], USAUNIT ID [id number] Methodist HospitalComment on above:Performed By: #### [id number] #### [facility] [address] [place] [address], USAUNIT RH 1PosiPeoples HospitalComment on above:Performed By: #### [id number] #### [facility] [address] [place] [address], USAUNIT RH 2PositiveRiverside Methodist HospitalComment on above:Performed By: #### [id number] #### [facility] [address] [place] [address], [place]*MRSA/MSSA CULTUREon 08-02-2018*MRSA/MSSA CULTUREClinical Report: (D) Specimen: NASAL SWAB Collected: 08/02/2018 12:37 Status: Final Last Updated: 08/03/2018 14:26 ISO (Final) No Methicillin Resistant Staphylococcus aureus Isolated (MRSA) ISO (Final) Methicillin Sensitive Staphylococcus aureus (MSSA) IsolatedNoMercy Health Clermont HospitalComment on above:Performed By: #### [id number] #### [facility] [address] [facility] [address], [facility] TREATMENT CENTERAPTTon 80-84-6606pNUV Coag (Bld) [Time]31.2 sNormal 25.0-35.0The [facility] Boardman HospitalComment on above:Result Comment: ALL RESULTS MUST BE [...] BE USED FOR THIS PURPOSE.Performed By: #### [id number], [id number] #### [facility] [address] [facility] [address], [facility] TREATMENT CENTERBASIC METABOLIC PANELon 53-46-4035Arkbjdh [Mass/Vol]9.4 mg/dLNormal8.6-10.3The [facility] Elizabeth Boardman HospitalComment on above: Performed By: #### [id number] #### [facility] [address] [facility] [place] [address], USAChloride [Moles/Vol]103 mmol/UHhiaxw65-914Tol [facility] Board[facility] HospitalComment on above:Performed By: #### [id number] #### [facility] [address] [facility] [place] [address], USACO2 [Moles/Vol]29 mmol/UQlhglw04-10Oua [facility] HospitalComment on above:Performed By: #### 33035 #### [facility] [address] [place] [place] [address], USACreatinine [Mass/Vol]1.06 mg/dLNormal0.70-1.30The [facility] Boardman HospitalComment on above:Performed By: #### [id number] #### [facility] [address] [place] [address], USAGFR/1.73 sq M predicted among blacks MDRD (S/P/Bld) [Vol rate/Area]mL/min/{1.73_m2}Normal>60The [facility] Comment on above:Performed By: #### [id number] #### [facility] [address] [place] [place] [address], USAGFR/1.73 sq M predicted among non-blacks MDRD (S/P/Bld) [Vol rate/Area]mL/min/{1.73_m2}Normal>60The [facility] Comment on above:Performed By: #### 51063 #### [facility] [address] [place] [address], USAGlucose [Mass/Vol]84 mg/rAQxasym85-611Dtu [facility] HospitalComment on above:Performed By: #### 76512 #### [facility] [address] [place] [place] [address], USAPotassium [Moles/Vol]4.0 mmol/LNormal3.5-5.1The [facility] Board[facility] HospitalComment on above:Performed By: #### [id number] #### [facility] [address] [address], USASodium [Moles/Vol]140 mmol/ANxyynq446-201Qym [facility] HospitalComment on above:Performed By: #### [id number] #### [facility] [address] [place] [address], USAUrea nitrogen [Mass/Vol]20 mg/dLNormal7-25The [facility] HospitalComment on above:Performed By: #### [id number] #### [facility] [address] [facility] [address], [facility] REGION[facility] TREATMENT CENTERCBC W/DIFFon 50-31-3407LBT BASOPHILS0.1 10*3/uLNormal 0.0-0.2The [facility] HospitalComment on above:Performed By: #### [id number] #### [facility] [address] [facility] [address], USAABS IMM GRANS0.1 10*3/uLNormal0.0-0.2The [facility] HospitalComment on above:Performed By: #### 83953 #### [facility] [address] [facility] [address], [facility] TREATMENT CENTERABS NEUTROPHILS4.2 10*3/uLNormal1.6-7.6The [facility] HospitalComment on above:Performed By: #### 52059 #### [facility] [address] [facility] [address], [facility] TREATMENT CENTERBasophils/100 WBC (Bld)1.3 %High0.0-1.0The [facility] HospitalComment on above:Performed By: #### 85846 #### [facility] [address] [facility] [place] [address], [facility] TREATMENT CENTEREosinophils (Bld) [#/Vol]0.1 10*3/uLNormal0.0-0.5The [facility] HospitalComment on above:Performed By: #### 51926 #### [facility] [address] [facility] [address], USAEosinophils/100 WBC (Bld)2.0 %Normal0.0-6.0The [facility] HospitalComment on above:Performed By: #### [id number] #### [facility] [address] [facility] [place] [address], USAErythrocyte distribution width (RBC) [Ratio]13.6 %Normal 11.5-15.0The [facility] HospitalComment on above:Performed By: #### 95547 #### [facility] [address] [place] [address], USAHematocrit (Bld) [Volume fraction]44.3 %Sybcuo90.0-50.0The [facility] HospitalComment on above:Performed By: #### 34577 #### [facility] [address] [address], USAHemoglobin (Bld) [Mass/Vol]15.1 g/hLEniarn74.0-17.0The [facility] HospitalComment on above:Performed By: #### 65012 #### [facility] [address] [facility] [place] [address], USAIMMATURE GRANS1.1 %High0.0-1.0The [facility] HospitalComment on above:Performed By: #### 32103 #### [facility] [address] [address], USALymphocytes (Bld) [#/Vol]1.2 10*3/uLNormal1.2-4.0The [facility] HospitalComment on above:Performed By: #### 52432 #### [facility] [address] [address], USALymphocytes/100 WBC (Bld)18.3 %Low20.0-45.0The [facility] HospitalComment on above:Performed By: #### 49555 #### [facility] [address] [facility] [place] [address], USAMCH (RBC) [Entitic mass]29.0 woReciuj54.0-33.0The [facility] HospitalComment on above:Performed By: #### [id number] #### [facility] [address] [place] [address], USAMCHC (RBC) [Mass/Vol]34.1 g/lETmzuwu04.0-35.0The [facility] HospitalComment on above:Performed By: #### [id number] #### [facility] [address] [place] [address], USAMCV (RBC) [Entitic vol]85.0 hWXbvoqi15.0-98.0The [facility] HospitalComment on above:Performed By: #### 47432 #### [facility] [address] [address], USAMonocytes (Bld) [#/Vol]0.7 10*3/uLNormal0.1-1.0The [facility] HospitalComment on above:Performed By: #### 52200 #### [facility] [address] [place] [address], JULGHFLR41.1 %Normal5.0-12.0The [facility] HospitalComment on above:Performed By: #### 49444 #### [facility] [address] [place] [address], USANeutrophils/100 WBC (Bld)66.2 %Cofqck51.0-72.0The [facility] HospitalComment on above:Performed By: #### 58006 #### [facility] [address] [place] [address], USANucleated RBC/100 WBC (Bld) [Ratio]0 %Normal0-0The [facility] HospitalComment on above:Performed By: #### 76726 #### [facility] [address] [place] [address], USAPLAT YMJ241 10*3/sQKfjwcn747-712Epg [facility] HospitalComment on above:Performed By: #### 55079 #### [facility] [address] [place] [address], USARBC (Bld) [#/Vol]5.21 10*6/uLNormal4.20-5.70The [facility] [place] Medical CenterComment on above:Performed By: #### 23630 #### [address] [address], [facility] REGIONAL TREATMENT CENTERWBC (Bld) [#/Vol]6.39 10*3/uLNormal4.00-10.60The [facility] HospitalComment on above:Performed By: #### 98844 #### [facility] [address] [place] [address], USACERVICAL SPINE 4 OR 5 VIEWSon 81-26-6216ICTRZWSX SPINE 4 OR 5 VIEWSUnBellevue Hospital Department of Radiology [address] [place] [id number] Patient Name: MATTY GARCES : 1970 Sex: M Age: Race: White Pt. Location: Patient Status: D Ordered Date: 08/02/2018 1:05:00 PM Completed Date: 08/02/2018 01:29 PM Requesting Provider: LUCIANO DAVIS Attending Provider: LUCIANO DAVIS Report Copy To: VENUS JAEGER Signs & Symptoms: Z01.89 Encounter for other specified special examinations I10 History: [place] Comments: , PREOP XRAY AP/LAT \EANDE\ FLEX/EX [...] findings. Electronically signed by:Bella King. Transcribed by: [email or web address], User Resident: KENNETH DUVAL Electronically Signed by: BELLA KING @ 08/03/2018 11:58 AM I personally read this/these film(s) with this residentNoMercy Health Clermont HospitalComment on above:Order Comment: , PREOP XRAY AP/LAT \EANDE\ FLEX/EX , PREOP XRAY AP/LAT \EANDE\ FLEX/EX , , , Ordering Provider - LUCIANO DAVIS MD , PROTHROMBIN TIMEon 56-94-3461RAO Coag (PPP) [Relative time]1.15 {INR}Normal0.91-1.16The [facility] Comment on above:Result Comment: ACCCP RECOMMENDED INR [...] OPTIMAL THERAPEUTIC RANGE. CHEST 1995;108:231S-246S.Performed By: #### 51774, 59974 #### [facility] [address] [facility] [address], [facility] TREATMENT CENTERPT Coag (PPP) [Time]14.7 oTpptic03.3-14.8The [facility] HospitalComment on above:Result Comment: ALL RESULTS MUST BE INTERPRETED WITH RESPECT TO BLOOD DRAWING ARTIFACT OR DILUTION ERROR OF ANTICOAGULANT AT THE TIME OF SAMPLING.Performed By: #### 57324, [id number] #### [facility] [address] [facility] [address], [facility] TREATMENT CENTERTYPE AND SCREENon 54-22-8171OSY INTERPRETATIONANoMercy Health Clermont HospitalComment on above:Order Comment: 2 units 2 units 2 units 2 units 2 unitsPerformed By: #### [id number] #### [facility] [address] [facility] [address], USARH INTERPRETATIONPositiveNoMercy Health Clermont HospitalComment on above:Order Comment: 2 units 2 units 2 units 2 units 2 unitsPerformed By: #### [id number] #### [facility] [address] [facility] [address], USAURINALYSIS REFLEXon 70-36-6032Gjnfhsnohf (U)CLEARNormal CLEARThe [facility] Elizabeth Board[facility] HospitalComment on above:Performed By: #### [id number] #### [facility] [address] [place] [address], USABilirubin [Mass/Vol]NegativeNormalNEGATIVEThe [facility] Elizabeth Board[facility] HospitalComment on above:Performed By: #### 03648 #### [facility] [address] [place] [address], USABLOODNegativeNormalNEGATIVEThe [facility] Elizabeth Boardman HospitalComment on above:Performed By: #### 38627 #### [facility] [address] [place] [address], USAColor (U)YELLOWNormalYELLOWThe [facility] Elizabeth Board[facility] HospitalComment on above:Performed By: #### 12731 #### [facility] [address] [place] [address], USAGlucose [Mass/Vol]150 mg/dLAbnormalNEGATIVEThe [facility] Board[facility] HospitalComment on above:Performed By: #### 06845 #### [facility] [address] [place] [address], USAKETONENegativeNormalNEGATIVEThe [facility] HospitalComment on above:Performed By: #### 51160 #### [facility] [address] [place] [address], USALEUK ESTERNegativeNormalNEGATIVEThe [facility] Elizabeth Board[facility] HospitalComment on above:Performed By: #### 13056 #### [facility] [address] [place] [address], USAMICRO NOT DONEnegative chemical reactions unless requested in original orderNormalThe [facility] Elizabeth Board[facility] HospitalComment on above: Performed By: #### [id number] #### [facility] [address] [place] [address], USANitrite Ql (U)NegativeNormalNEGATIVEThe [facility] HospitalComment on above:Performed By: #### 71679 #### [facility] [address] [facility] [place] [address], [facility] TREATMENT CENTERpH (Bld)5.0Dsopav2.0-8.0The [facility] HospitalComment on above:Performed By: #### 90171 #### [facility] [address] [place] [address], [facility] TREATMENT CENTERProtein (U) [Mass/Vol]NegativeNormalNEGATIVEThe [facility] HospitalComment on above:Performed By: #### 36697 #### [facility] [address] [facility] [place] [address], USASPEC GRAV1.364Iqvh4.015-1.020The [facility] Board[facility] HospitalComment on above:Performed By: #### 36051 #### [facility] [address] [place] [address], [facility] Vital Signs Date TimeVital SignValuePerforming YjjscwlrzVslkhiyx95-89-6580 15:09-0400Body nypkgv663 cmJafortino Rainey EDITOR INDEX Work Phone: [facility] HospitalSklrrbbpjp22-49-1434 15:09-0400Body mass index (BMI) [Ratio]34.92 kg/y4GckbqlbbheHeather Rainey EDITOR INDEX Work Phone: [facility] HospitalThluycrksv59-43-0893 15:09-0400Body cqtcoq426.38 kgJafortino Rainey EDITOR INDEX Work Phone: [facility] HospitalQhmptxbmay51-64-9266 15:09-0400Diastolic blood mm[Hg]Heather Rainey EDITOR INDEX Work Phone: [facility] HospitalTmphitguto51-43-2225 15:09-0400Systolic blood udtvzhxa726 mm[Hg]Heather Rainey EDITOR INDEX Work Phone: [facility] HospitalUvzrdmizjh55-49-1382 11:03-0400Body vmubvs401 cm Rubén Geiger MD Work Phone: [facility] HospitalJmmnxhldyq62-14-5147 11:03-0400Body mass index (BMI) [Ratio]34.02 kg/x5IdfpbauRubén Geiger MD Work Phone: [phone] HospitalHuyzhvgddg69-64-6105 11:03-0400Body .2 kgRubén Geiger MD Work Phone: [phone] [place], [place] [address]Dxfmcqkqhr02-66-5403 11:03-0400Diastolic blood mm[Hg]Rubén Geiger MD Work Phone: [phone] [place], [place] [address]Qzikmtmjcg89-34-6963 11:03-0400Heart ieau002 /min Rubén Geiger MD Work Phone: [phone] [place], [place] [address]Saojdhugyb60-31-3848 11:03-0400Systolic blood iydwqvsl718 mm[Hg]Rubén Geiger MD Work Phone: [phone] [place], [place] [address]Fkatylwowx52-76-3618 14:44-0400Body bntrom570 cm Rubén Geiger MD Work Phone: [phone] [place], [place] [address]Xmmymikubb10-79-7398 14:44-0400Body mass index (BMI) [Ratio]35.31 kg/l7UrslkcoRubén Geiger MD Work Phone: [phone] HospitalPpjeambzxd75-93-4949 14:44-0400Body yqppob517.74 kgRubén Geiger MD Work Phone: [facility] HospitalHlmuwpawxy98-06-0027 14:45-0400Body fsdtwy860 cm Rubén Geiger MD Work Phone: [facility] HospitalMoqzeozjoq36-59-0771 14:45-0400Body mass index (BMI) [Ratio]37.62 kg/k2SuokhjzRubén Geiger MD Work Phone: [facility] HospitalQxambnnsay84-80-7153 14:45-0400Body otinel343.9 kgRubén Geiger MD Work Phone: [facility] HospitalNdtslzdsri80-28-7720 10:30-0400Blood Pressure LocationKatLevine Children's Hospitale [facility] 06-15-2022 10:30-0400Diastolic blood aarhpbfy951 mm[Hg] Viola Lue [facility] 06-15-2022 10:30-0400Heart rate74 /minKathy Lue [facility] 06-15-2022 10:30-0400Respiratory rate16 /minKathy Lue [facility] 06-15-2022 10:30-0400Systolic blood zheeaioi338 mm[Hg] Viola Lue [facility] Encounters Encounter DateEncounter TypeCare ProviderFacilityStart: 07-13-2025 End: 78-02-0223Cjvjid outpatient visit 25 minutesHeather Rainey EDITOR INDEX Work Phone: noms [facility] NeurologyComment on above:Excessive daytime sleepiness; Obstructive sleep apneaStart: 07-13-2025 End: 98-39-8579nmwxzywmkcIVTOBOXKWY M GRAZIANINot AvailableStart: 07-13-2025 End: 72-04-9732Ostnjh flowsheetHeather Rainey EDITOR INDEX Work Phone: noms NEUROLOGYStart: 07-13-2025 End: 96-20-0333Hokcjr flowsheetHeather Rainey EDITOR INDEX Work Phone: noms NEUROLOGYStart: 06-20-2025 End: 05-72-6235uvdzgoofgpWfciaqv M Hoy MD Work Phone: [facility] Work Phone: Start: 06-20-2025 End: 37-94-2886Ecqeskof ReferredRafik Massouh MD-LAB [facility] Start: 05-29-2025 End: 97-81-3461Tczybab encounter procedureJustnamita Eze Pauly DO-CT Scan [facility] Work Phone: Start: 05-29-2025 End: 85-69-5327qezjojmvmnThjyouq M Hoy MD Work Phone: [facility] Work Phone: Start: 05-15-2025 End: 63-34-3150CrjwotRqhnkqrred M Graziani NP Work Phone: noms [facility] NeurologyComment on above:Excessive daytime sleepiness; Primary insomniaExcessive daytime sleepiness; Obstructive sleep apneaStart: 05-07-2025 End: 50-10-4815iqknugqiszSzxrbxz M Hoy MD Work Phone: [facility] Work Phone: Start: 05-07-2025 End: 80-12-5016Snfaoat encounter procedureJustnamita Eze Pauly DO-[facility] Work Phone: Start: 04-04-2025 End: 10-91-6635Birzoasilviano Geiger MD Work Phone: noms NEUROLOGYStart: 04-04-2025 End: 74-96-6248Ndghdksilviano Geiger MD Work Phone: noms BM NEUROLOGYStart: 04-04-2025 End: 76-23-5484Jxwtft outpatient visit 25 minutesBremuriel Geiger MD Work Phone: noms SWS NEURComment on above:Narcolepsy cataplexy syndrome (HCC) (Primary Dx); Excessive daytime sleepiness; Cervical disc disorder; Intractable chronic migraine with aura with status migrainosusStart: 04-04-2025 End: 37-98-9577fhnkkdajpdDUDOUNM W BAUERNot AvailableStart: 03-05-2025 End: 37-60-3297Icgzmbedf Result EncounterAmy [place] PA Work Phone: noms External Department UnsolicitedStart: 03-05-2025 End: 56-72-6953Cdazunezl Result EncounterJess HOYOS Work Phone: noms External Department UnsolicitedStart: 01-03-2025 End: 53-30-2808Cnidmu outpatient visit 25 minutesRubén Geiger MD Work Phone: noms SWS NEURComment on above:Primary narcolepsy with cataplexy (CMS/HCC) (Primary Dx); Excessive daytime sleepiness; Obstructive sleep apneaStart: 01-03-2025 End: 19-23-7510elozykjcfhNIOJLRH W BAUERNot AvailableStart: 01-03-2025 End: 63-84-8923Towzricaesar Geiger MD Work Phone: noms NEUROLOGYStart: 01-03-2025 End: 64-20-0374Hlatfucaesar Geiger MD Work Phone: noms BM NEUROLOGYStart: 12-11-2024 End: 33-80-5421inbwvddorlKHNSUAL W BAUERNot AvailableStart: 12-11-2024 End: 76-81-1493Twukgt outpatient visit 25 minutesRubén Geiger MD Work Phone: noms SWS NEURComment on above:Cubital tunnel syndrome on right (Primary Dx); Cervical paraspinal muscle spasm; Degeneration of intervertebral disc of lumbosacral region with discogenic back pain and lower extremity pain; Narcolepsy cataplexy syndrome (CMS/HCC)Start: 11-14-2024 End: 62-03-3758Hjvsygeem Jeff Mason EEG. T. Other Phone: noms SWS NEURStart: 10-12-2024 End: 15-78-8629Xxfdtamcb encounterHeather Rainey NP Work Phone: noms [facility] NEURO 210Start: 58-88-2258Nzuyhtwpoj and management of inpatientCHRISTOPHER [facility] Start: 10-08-2024 End: 62-97-2126Wviaczeuex and management of inpatientJACK [facility] Hospitaltart: 10-02-2024 End: 40-78-7728ZxvqwoIefcvwp Peterson LPNNOMS SV NEURO 210Comment on above: Excessive daytime sleepiness; Obstructive sleep apneaStart: 30-42-2136Ulianjbjdr and management of inpatient MARIANNA ROBERTSTriHealth Bethesda North Hospitaltart: 07-83-9232Rsufuywgey and management of inpatientBRANTLEY HINDERSUniCleveland Clinic Marymount Hospital Start: 77-23-5449Rndlbyikmx and management of inpatientJAMIE Memorial Hospitaltart: 47-42-1425Avytxpusxa and management of inpatient [facility] Hospitaltart: 79-60-4218Lqdotrnanw and management of inpatientABDUL MUSTAPHAUniRegency Hospital Cleveland Westtart: 45-70-6247Qtcbjxgqgt and management of inpatientRACHEL [facility] Hospitaltart: 75-14-3325Xpjlnmsiq department patient visitJAMIE Memorial Hospitaltart: 01-93-6333Prtophlvi department patient visitJAMIE Memorial Hospitaltart: 09-23-2024 Emergency department patient visitRACHEL [facility] Hospitaltart: 09-23-2024 End: 78-65-6248Isqlqpfitq and management of inpatientJEFFERY KATKOTriHealth Bethesda North Hospitaltart: 09-21-2024 End: 25-60-3353ypiomtnwdkRdfpb D [facility] Work Phone: Start: 09-21-2024 End: 73-51-5915Zzgbmphw ReferredGeisinger-Shamokin Area Community Hospital DPM Work Phone: [facility]-LAB Path Spec To[facility] HospStart: 07-04-2024 End: 78-55-0614Ehquziojt encounterRubén Geiger MD Work Phone: [facility] NEURO 210Start: 07-03-2024 End: 63-79-8625Nvhrao outpatient visit 25 minutesRubén Geiger MD Work Phone: [facility] NEURComment on above:Excessive daytime sleepiness (Primary Dx); Obstructive sleep apnea; Primary insomnia; Cubital tunnel syndrome on rightStart: 07-03-2024 End: 70-73-8232Dsiaiq Anastasiya Geiger MD Work Phone: [facility] NEUROLOGYStart: 07-03-2024 End: 84-62-5649Byyzxx Anastasiya Geiger MD Work Phone: [facility] NEUROLOGYStart: 05-10-2024 End: 32-30-1902XzqcezRbxgjhu W Bauer MD Work Phone: [facility] NEURComment on above:Primary insomniaStart: 01-03-2024 End: 40-65-8620qzovxsqdefXHJ Trey [facility] Work Phone: [facility] Work Phone: Start: 01-03-2024 End: 18-66-0271Frvbhdbp ReferredDPM Trey [facility] Work Phone: [facility]-LAB Path Spec [place] [facility]ospStart: 11-29-2023 End: 01-59-7402tsturaytmxEjsoceh Vytautas Giedraitis MDFacility:PM [place] Start: 10-18-2023 End: 75-19-3448mnimobmsqwGfbbzou Vytautas Giedraitis MDFacility:PM [place] Start: 08-30-2023 End: 31-78-8620uungpyubkkBzuyyhy Vytautas Giedraitis MDFacility:PM [place] Start: 07-12-2023 End: 17-02-3187ksrdilacfkUnjfvbn Vytautas Giedraitis MDFacility:PM [place] Start: 06-14-2023 End: 89-95-4464kyjezaoyztTemwure Vytautas Giedraitis MDFacility:PM [place] Start: 12-06-2022 End: 67-08-1956qavsaykigoFC VENUS HOY .Facility:U1Mvsjf: 39-22-8955Sxytjqeyt for general adult medical examination without abnormal findingsDR VENUS HOY . [facility] [place] [facility]Start: 12-01-2022 End: 21-53-2395zuwbodukahYA VENUS HOY .Facility:O2Miukx: 12-01-2022 End: 45-69-3492Zbwkuqyez for general adult medical examination without abnormal findingsDR VENUS HOY .Facility:M1Zrusu: 07-10-2022 End: 25-12-5620lzovkqpxfjVS VENUS HOY .Facility:Y4Umvpn: 03-26-2022 End: 33-26-7090hiyrirmsskIS VENUS HOY .Facility:V0Saynl: 03-13-2022 End: 05-69-3192eggzyqzhzgFX VENUS HOY .Facility:Y2Ocpgu: 02-25-2022 End: 74-95-1263Rmbemhz encounter procedureViola Grullon [facility] start: 01-04-2022 End: 99-77-3415majneyhblfTW VENUS HOY .Facility:D4Nhtdi: 01-30-2019 End: 58-00-4792Fmvnttpdve and management of inpatientPROVIDER UNKNOWN Facility[facility] 08-[facility]-2018 End: 38-77-7512Zxoklwo encounter procedurePROVIDER UNKNOWNFacility:[facility] Procedures DateProcedureProcedure DetailPerforming ClinicianStart: 70-45-8386QF of lower leg without contrastVenus Jaeger MD Work Phone: Start: 17-92-6792YAR 12-LEADAmy Garry HOYOS Work Phone: Start: 16-85-3432AKP screeningDR VENUS HOY .Comment on above:Performed By: #### PSASC #### [facility] [address] [address] [address] Shabnam RaeStart: 79-94-8629VZLKNJ CERV JT W INTBD FUS DEV, ANT APPR A COL, OPENAZEDINE MEDHKOURStart: 46-45-9427NUVBXSB OF INT FIX FROM CERVCAL VERTEBRA, OPEN APPROACHAZEDINE MEDHKOURStart: 71-80-1032Duquevtv screenPROVIDER UNKNOWN Comment on above:Performed By: #### [id number], [id number] #### [facility] [address] [facility] [place] [address], USAStart: 02-87-8821XKKXNS SPINE CORD SURGERYANTHONY BRAIDA Start: 33-94-7990GAMYGT SPINE FIXATION DEVICEAZEDINE MEDHKOURStart: 08-17-2018 NECK SPINE FUSE\T\REMOV BEL P5VLOFMCU MEDHKOURStart: 49-07-5461IS BONE ALGRFT STRUCT ADD-ONAZEDINE MEDHKOURStart: 09-17-7497Pcqibikg screenPROVIDER UNKNOWN Comment on above:Order Comment: 2 units 2 units 2 units 2 units 2 unitsPerformed By: #### [id number] #### [facility] [address] [facility] [place] [address], USAStart: 02-08-1998H/O: vasectomyHistory of vasectomyRubén Geiger MD Work Phone: ColonoscopyKathy Lue Hemorrhoids (disorder)Viola Lue Hernia of abdominal cavity (disorder)Viola Lue TonsillectomyKathy Lue Plan of Treatment DateCare ActivityDetailAuthorStart: 11-05-2025 End: 39-16-1354Zvqtisv encounter idrawngvj08/23/2026 1:20 PM EST Office Visit [facility] [address] [place] [address] Rubén Geiger MD [address] [place] [address] NOMClotilde Wiley NeurologyStart: 07-13-2025 End: 68-76-5803Xmyrfsl encounter /31/2025 2:40 PM EDT Office Visit [facility] [address] [facility] [[email or web address] [address] [place] [address] Heather Rainey, EDITOR INDEX [address] [place] [address], [place] [id number] ArrivedNOMS [facility] Comment on above:ArrivedStart: 06-27-2025 End: 99-36-1712Pmkqcze encounter procedureNOMS [facility] NEURStart: 11-48-1949TYQLN-19 Vaccine ( season)COVID-19 Vaccine ( season)[facility]OMS HealthcareStart: 55-27-1472Kqaxpalyw vaccinationInfluenza Vaccine (#1)[facility] HealthcareStart: 04-04-2025 End: 97-97-4000Sstjycg encounter procedureNOMS SWS NEURComment on above:Arrived Start: 01-03-2025 End: 67-47-0535Tyghjkd encounter procedureNOMS SWS NEURComment on above:Arrived Start: 10-04-2024 End: 41-91-5669Rbxwbdp encounter tcpmekbhu16/22/2025 2:20 PM EST Office Visit [facility] [address] [facility] [[email or web address]] [address] [place] [address] Rubén Geiger MD [address] [facility] [address] [place], [place] [id number] [facility] NEURStart: 36-12-4287Hlaxcytkcup Wound CultureSuperficial Wound CultureVeterans Health Administrationtart: 07-03-2024 End: 19-30-6655Jbiwczi encounter procedureNOMS SWS NEURComment on above:Arrived Start: 31-86-4895Xbjwjndlg vaccinationInfluenza Vaccine (#1)[facility] Start: 64-90-8328Sypsuzoyk B Vaccines (1 of 3 - 19+ 3-dose series)Hepatitis B Vaccines (1 of 3 - 19+ 3-dose series)[facility] HealthcareStart: 1976 DTaP/Tdap/Td Vaccines (1 - Tdap)DTaP/Tdap/Td Vaccines (1 - Tdap)[facility] Healthcare Start: 50-71-4599JSY Vaccines (1 of 1 - Standard series)MMR Vaccines (1 of 1 - Standard series)NOM HealthcareStart: 08-63-0875Wysqkuygv for malignant neoplasm of colonNOMS HealthcareBacteria identified in Unspecified specimen by Aerobe cultureHolmes County Joel Pomerene Memorial HospitalCT Lower leg - right W contrast IV [facility] HospitalXR Tibia and Fibula - right 2 ViewsHCA [facility] Immunizations Immunization DateImmunizationNotesCare HvgwdnuaTvidrodj00-56-6767xxsthxgoe virus vaccine, unspecified formulationJacsaeid Rainey EDITOR INDEX Work Phone: [facility] HospitalNpmkhjmzwj71-24-2582bgoaiqbdx virus vaccine, unspecified formulationBremuriel Geiger MD Work Phone: noBarnes-Jewish West County HospitalSgeovkmyou18-35-7584gldpdiwxo virus vaccine, unspecified formulationBremuriel Geiger MD Work Phone: [facility] Payers DatePayer CategoryPayerPolicy [id number] [id number] [id number] 2..840.1.702540.3.579.2.647 [id number] 2.16840.1.296202.3.579.2.42551-75-3308Yumjegp3000257 2.16.840.1.871027.3.579.2.81680-88-3489Fkhuiea7253133 2..840.1.396035.3.579.2.56722-22-9929Mbzmoog8284062 2.16.840.1.069575.3.579.2.80481-93-1985Iznlhwt0370659 2.840.1.031904.3.579.2.04213-06-3856Ovpzrii8103571 2.840.1.960306.3.579.2.41202-14-3043Vzwtqml8922702 2.840.1.240848.3.579.2.54966-64-0440Qaixngw846221656 2.840.1.556423.3.579.2.89664-30-8869Yastubd511051721 2.840.1.608985.3.579.2.86142-87-7051Jmveglu079879988 2.840.1.402963.3.579.2.01919-75-2512Sxwvktv094067915 2.840.1.897898.3.579.2.94229-15-0908Fzxmgnt776045247 2.840.1.051446.3.579.2.75409-53-2767Qfsxxra03189473 2.840.1.736348.3.579.2.995580-08-3231Lvjohmy85598836 2.840.1.804821.3.579.2.598162-83-4020Wwefdst3798238 2.840.1.721261.3.579.2.972774-81-1530Jsvyznq3238983 2.840.1.219150.3.579.2.978383-82-5162Vdsqyr[id number] [id number] 2.16.840.1.395706.3.579.2.722Nhcuwkm25280073 2.16.840.1.007398.3.579.2.305Evdkgqt08757236 2.16.840.1.864521.3.579.2.531 Social History DateTypeDetailFacilityTobacco smoking statusNo Smoking Status EnteredExecutive Urology [facility] start: 03-27-2024 End: 49-98-8165Hqc Assigned At [facility] CentereExat[facility] start: 05-15-2018 End: 11-45-7238Gumkkgr smoking status NHISEx-smoker (finding)[facility] Administrationtart: 74-64-2516Qzk Assigned At [facility] Hospitaltart: 80-69-4391Jjtqvbs smoking status NHISNever smoked tobacco [facility] HealthcareStart: 83-83-4282Aeuvbni use and exposureSmokeless tobacco non-userNOMS HealthcareStart: 03-27-2024 End: 84-57-5709Tcjhocbff beverage intakeEx-drinker (finding)[facility] Start: 03-27-2024 End: 99-51-7053Mkcwhtn of Social functionNOMS HealthcareStart: 35-79-1712Kig assigned at birthNot on fileNOMS HealthcareStart: 56-63-1352KvbNqta (finding) [facility] Administrationtart: 81-90-9983QvzKtxaZJSY Healthcare Functional Status ArqkRexsakadklCojvdtTsozcpmi35-87-8678Nalzgeuddm StatusN/AExecutive Urology [facility] Clinical Notes 02-25-2022 to 07-13-2025 Note Date & KjfmHdwdFmtcioos18-23-0566 History of Present illness Narrative* Heather Rainey, EDITOR INDEX - 07/13/2025 2:40 PM EDT Images from the original note were not included. Subjective Matty Garces is a 54 y.o. male who presents for Narcolepsy. History of Present Illness Patient here for follow up for Narcolepsy and Sleep Apnea. Patient states that Xywav does help withhim sleeping. States that after 45 min of taking medication he is ready for bed. Patient states that when in hospital they gave a muscle relaxant gel put on the back of his neck helped from getting Migraines. Patient states that he gets about 2 Migraines a week. Patient takes Imitrex for abortive. Tension in neck and head causes Migraines. Patient is needing refill Modafinil. Review of Systems Constitutional: Positive for fatigue. Negative for chills and fever. HENT: Negative for tinnitus. Eyes: Negative for photophobia. Respiratory: Negative for shortness of breath. Cardiovascular: Negative for chest pain. Gastrointestinal: Negative for nausea and vomiting. Genitourinary: Negative for frequency. Musculoskeletal: Positive for neck pain and neck stiffness. Negative for back pain and gait problem. Neurological: Positive for headaches. Negative for dizziness, tremors, weakness, light-headedness and numbness. Psychiatric/Behavioral: Negative. Neurological Exam Mental Status Awake, alert and oriented to person, place and time. Oriented to person, place and time. Speech is normal. Language is fluent with no aphasia. Cranial Nerves CN II: Visual acuity is normal. Visual mae full to confrontation. CN III, IV, : Extraocular movements intact bilaterally. Normal lids and orbits bilaterally. Pupils equal round and reactive to light bilaterally. CN V: Facial sensation is normal. CN VII: Full and symmetric facial movement. CN VIII: Hearing is normal. CN IX, X: Palate elevates symmetrically. Normal gag reflex. CN XI: Shoulder shrug strength is normal. CN XII: Tongue midline without atrophy or fasciculations. Motor Increased muscle tone. Increased cervical/neck paraspinal muscles, severe decreased ROM. Reflexes Right Left Patellar 0 0 Gait Casual gait: Wide stance. Procedures Objective Blood pressure 118/68, height 6' 2 , weight 272 lb. Physical Exam Results Assessment & Plan Narcolepsy Prior to being on Xywav he would fall asleep in the exam rooms. 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 PATEL Hypersomnia treated with Provigil and this also helps his narcolepsy. Severe daytime sleepiness prior to Provigil and Xywav. Neck pain History of cervical fusion. Tizanidine and anesthetic application reduce severity. He has severe limited cervical/neck ROM. Is trigger to headaches and migraines. He takes PRN Imitrex. I discussed with him where to apply TENS unit for neck pain. This was discussed with patient all questions answered. Total time 30 minutes spent reviewing records, performing medically appropriate exam, counseling , education, ordering medication, tests, and/or procedures, documenting health information into the health record, communicating results to the patient, and coordinating care. This clinical note was created utilizing [employer] documentation system. All information has beenthoroughly reviewed, corrected as necessary, and authenticated by the provider to ensure accuracy and completeness. On occasion, [employer] documentation system erroneously drops words or replaces aspoken word with a similar sounding word. Please notify with any questions or concerns regarding this clinical note. documented in this encounterBates County Memorial HospitalLmoozxgsfj54-95-2205 Radiology Diagnostic study [facility] [place] [address] [place] [address] CT Scan Report Signed Patient: Matty Garces MR#: [id number] : 1970 Acct:[id number] Age/Sex: 54 / M ADM Date: 5 Loc: CT Room: Type: [facility] CLI Attending Dr: Jameel Coats DO [...] Irving M.D. 05/29/2025 11:40 PM Dictation Location: [facility]17 Transcribed By: [facility] 05/29/252339 Dictated By: Francis Irving II, MD 05/29/25 9563 Signed By: 05/29/252339 [facility] Work Phone: 1(819) 143-630409-03-2025 Telephone encounter Note* Telephone Encounter - Heather Rainey NP - 05/16/2025 8:45 AM EDT OARRS reviewed [facility] HospitalUjeusywmdl29-76-4613 Miscellaneous Notes* Telephone Encounter - Heather Rainey NP - 05/16/2025 8:45 AM EDT OARRS reviewed documented in this encounterBates County Memorial HospitalZchkhztonj30-54-7258 Evaluation note* Diagnosis Onset Date Resolution Status Admit Date Hypertrophy of bone of lower leg noneactiveAugust 2024 11:21amFracture of right tibia and fibulanoneactive May 07, 2025 11:21amRight leg painnoneactiveAugust 2024 11:21am [facility] Work Phone: 1(657) 177-597407-23-2025 History of Present illness Narrative* Rubén Geiger [...] in all four extremities, including at least government program manager, finger abductors, biceps, triceps, deltoid, toe flexors [...] refill for Xywav will be sent to [facility]. If symptomspersist or worsen, further [...] up in 3 months. documented in this encounterBates County Memorial HospitalHbeeakugeu31-54-8305 History of Present illness Narrative* Rubén Geiger [...] 1 mg, Oral, 2 times daily HYDROcodone-acetaminophen ([place]) 5-325 MG tablet hydrOXYzine pamoate (Vistaril) 25 [...] in all four extremities, including at least government program manager, finger abductors, biceps, triceps, deltoid, toe flexors [...] Increase Xywav to 6mg documented in this encounterBates County Memorial HospitalEgliyvqrta35-85-3635 History of Present illness Narrative* Rubén Geiger [...] 1 mg, Oral, 2 times daily HYDROcodone-acetaminophen ([place]) 5-325 MG tablet hydrOXYzine pamoate (Vistaril) 25 [...] Wan ULNAR NERVE TRANSPOSITION Left 2015 UVULOPALATOPHARYNGOPLASTY Procedure:U.P.P.P.;Disease:Tracheal stenosis Social History Tobacco Use [...] in all four extremities, including at least government program manager, finger abductors, biceps, triceps, deltoid, toe flexors [...] intracranial or extracranial stenosis. documented in this encounterBates County Memorial HospitalYuyhealtzu28-23-1632 Telephone encounter Note* Telephone Encounter - Isabella Manzano - 11/14/2024 9:49 AM EST Pt called for refill on Zofran. [facility] Work Phone: 1(748) 144-233103-04-2025 Miscellaneous Notes* Telephone Encounter - Isabella Manzano - 11/14/2024 9:49 AM EST Pt called for refill on Zofran. documented in this encounterBates County Memorial HospitalBithizfdwx40-33-6729 Telephone encounter Note* Telephone Encounter - Heather Rainey NP - 10/12/2024 7:20 PM EST Did we send in Xywav REMS form for this patient? [facility] calls that the form we sent in had white out on the titration section on the form. They need new form without white out on it? I do notsee anything in media sent and if I search patient chat. [facility] HospitalAcemtighzl43-66-6385 Miscellaneous Notes* Telephone Encounter - Heather Rainey NP - 10/12/2024 7:20 PM EST Did we send in Xywav REMS form for this patient? [facility] calls that the form we sent in had white out on the titration section on the form. They need new form without white out on it? I do notsee anything in media sent and if I search patient chat. documented in this encounterBates County Memorial HospitalWljrengsos61-28-1146 NoteOccupational Therapy Occupational Therapy Treatment Note Patient [...] going to put in a elba toilet. (Prototype Engineer suggesting a RTS or to have son put in toilet however, pt stated that he will replace the toilet himself) Objective 1 Pt was up in chair at [facility] with on her way. Objective 2 Prototype Engineer provided education on home and bathroom safety. [...] (Min Henrietta (more content not included)...[facility] 10-11-2024 NoteHospital Medicine Discharge Summary Final [...] 54-year-old male who came from [facility] due to left lower extremity [...] Provider Department Center 10/26/2024 2:50 PM Sandrine Field MD [facility] Your medication list START taking these medications [...] Medications These medications were sent to [facility] - [place], [place] - [address] [place] [address] [place] [address], [facility] [address] Phone (more content not included)...[facility] 10-11-2024 NotePharmacy Dosing Service - Vancomycin [...] Thank you, Sudha Camacho, PharmD, 10/11/24[facility]01-29-2025 Note Attestation signed by Sandrine Field MD [...] with any concerns via the Orthopaedic pager ([phone]) at any time. Jazzmine Casanova MD Orthopedic Surgery Resident, PGY 1Un[facility]01-28-2025 [facility] Medicine Daily Progress Note - 10/10/2024 6:40 PM; Room: [address] [place] [address] Admission: 10/08/2024 5:47 AM; Length of stay: 2 days THE HOSPITALIST TEAM PREFERS TO USE [employer] CHAT FOR NON-URGENT COMMUNICATION 7AM-7PM. IF I DO NOT RESPOND WITHIN 20 MINUTES OR URGENT MATTERS, PLEASE CALL THROUGH THE RECRUITMENT MANAGER. FROM 7PM-7AM, PLEASE PAGE [phone](COVR). Code Status: Full Code Barriers to Discharge: [...] , FREET4 , CORTISOL , FEV1 , DGH8TGM , DLCO , RVSP , HDL , LDL No results found for: XNYVTOTP76 , IRON , TIBC , C3 , [...] Discharge Planning Expected Discharge Disposition: Home-Health Care [facility] (06) PT (more content not included)...[facility]01-28-2025 [facility]UnSt[facility] V[facility] Surgery/Wound Care CONSULTATION Reason for [...] Patient reports that he has followed with wood gouger in [place] for many years for treatment of his left great toe DFU. States that is chronic and has been minimal healing progress until recently. Patient states he would like to resume care with this wood gouger at discharge. He has not been able to see wood gouger since previous discharge due to scheduling issues. [...] Nightly, Tonya Lerner NP, 20 mg at 10/09/242229 tiZANidine (Zanaflex) tablet 4 mg, 4 mg, oral, Nightly, Tonya Lerner NP, 4 mg at 10/09/242229 vancomycin 1.75 gram/350 mL piggyback 1.75 g, 1.75 g, intravenous, q12h, Tonya Lerner NP, Stopped at 10/10/24 1113 Social History Socioeconomic History Marital status: Spouse name: Not on file Number of children: Not on file Years of education: Not on file Highest education level: Not on file Occupational Histor (more content not included)...[facility]01-28-2025 NotePhysical Therapy Physical Therapy Treatment Patient [...] 1 S (more content not included)...[facility] 10-10-2024 Note. Pharmacy Dosing Service - [...] continue after 5 days. -Check BUN/SCr daily Erin RangelD, 10/09/24[facility]01-27-2025 Note Occupational Therapy Occupational Therapy Evaluation Patient Name: Matty Garces : 1970 Today's Date: 10/09/2024 Time in:1504 Time out: 1526 Present Illness History: 54 y/o M presented from [facility] with R LE cellulitis. Patient was recently [...] Level of Function Prior Function Level of [place]: Independent with ADLs and functional transfers, Independent [...] and fu (more content not included)...[facility]01-27-2025 Note10/09/24 0909 Admission Assessment Questions Verify [...] Status Interested Does the patient have a lead case manager assigned to them through their insurance? No Living Arrangement (Current/Prior to Hospitalization) Private residence (lives with ) Does the patient have history of C or SNF? Yes (Active with Radha/Abdirashid [facility]) Assistive Device Wheelchair;Bedside Commode;Walker Patient's goal for discharge Home with [facility] Was patient reminded that goal for discharge is 11am? No Does the patient have transportation at discharge? Yes Type of Residence Private residence;Home care staff Is PT/OT appropriate? Yes Is PT/OT ordered? Yes Is SW consult appropriate? Yes Is SW consult ordered? Yes Do you understand the benefits of MyChart? Yes Were you able to send link and activate MyChart? [facility]01-27-2025 NoteHospital Medicine Daily Progress Note - 10/09/2024 12:13 PM; Room: [address] [place] [address] Admission: 10/08/2024 5:47 AM; Length of stay: 1 days THE HOSPITALIST TEAM PREFERS TO USE [employer] CHAT FOR NON-URGENT COMMUNICATION 7AM-7PM. IF I DO NOT RESPOND WITHIN 20 MINUTES OR URGENT MATTERS, PLEASE CALL THROUGH THE RECRUITMENT MANAGER. FROM 7PM-7AM, PLEASE PAGE [phone](COVR). Code Status: Full Code Barriers to Discharge: [...] , FREET4 , CORTISOL , FEV1 , SOU4LDP , DLCO , RVSP , HDL , LDL No results found for: VAEBEWEJ76 , IRON , TIBC , C3 , [...] Discharge Planning Expected Discharge Disposition: Home-Health Care [facility] (06) PT Discharge Recommendations: Home PT Signed C (more content not included)...[facility]01-27-2025 NotePhysical Therapy Physical Therapy Re-Evaluation Patient Name: Matty Garces : 1970 Today's Date: 10/09/2024 General Subjective: Attempted to see pt earlier today (0925-9233) for mobility assessment. Pt deferred d/t pain [...] Exercise Therape (more content not included)...[facility] 10-09-2024 Note. Pharmacy Dosing Service - [...] levels at steady state -Check BUN/SCr daily Erin RangelD, 10/09/24UnBellevue Hospital01-27-2025 Note Orthopaedic Surgery Orthopaedic Surgery Progress [...] Rivas MD Orthopaedic Surgery, PGY-2 Ortho Pager [phone] 10/09/24 6:38 AM I am available via [employer] 6a-6p. May contact the on-call resident with any concerns via the Orthopaedic pager at any time.[facility]01-26-2025 NoteCase was discussed with the AYAKA on 10/08/2024. I agree with the history, physical, assessment, and plan of care. I discussed the findings and therapeutic plan. I agree with the documentation, except for any updates below. Fabiola Wade, [facility]01-26-2025 NotePhysical Therapy Evaluation Patient Name: Matty Garces Today's Date: 10/08/2024 Admit Date: 10/08/2024 Time In: 1:20pm Time Out: 1:45pm Cumulative minutes: 25 minutes Billed minutes: 25 minutes; 15 min eval; 10 min therapeutic exercise to review HEP x10 reps. History of present illness Per H&P: Matty Garces is an 54 y.o. male who came from [facility] with LLE cellulitis. Patient has PMH of hypertension, diastolic heart failure, GERD, anxiety. He recently was admitted here and had right leg tib/fib fracture and seen by our ortho team and had closed insertion with intramedullary wendy on 09/24/24 and was discharged home. He reports he went to [place] ER due to increased pain, swelling and [...] patient refused this stating he already has [facility] set up and wants to go home. Vascular surgery was consulted for a chronic left foot ulcer. Pulmonary navigator was consulted for PATEL and recommended OP sleep study. On day of discharge, Trauma team was informed at approximately 1730 per [facility] that patient went into a-flutter and sustained for approximately 2 hours from approximately 0310-6944. Trauma team ordered a STAT ECG and [...] WB status. Objective assessment (more content not included)...[facility]01-26-2025 NotePharmacy Dosing Service - Vancomycin Initial Consult Note Pharmacy has been consulted for the dosing and evaluation of Drug: Vancomycin Indication: complicated skin and soft tissue infection AUC 400-600 mg*hr/L and trough 10-20 mcg/mL Other Antimicrobial Regimens: cefepime Labs and Renal Function Total body weight: 134 kg (295 lb) [place] body weight: 82.2 kg (181 lb 3.5 [...] Comments: - 54 year old male from [place] with LLE cellulitis -Had intramedullary wendy placed [...] or questions Thank you, Altaf Martin, PharmD, 10/08/24[facility]01-26-2025 Note Will consult wound careUnBellevue Hospital01-26-2025 Note Continue vanco and zosyn Ortho following Will get blood culturesUnBellevue Hospital01-26-2025 Note Continue citalopram, clonazepamUnBellevue Hospital01-26-2025 NoteContinue modafinil, coregUnBellevue Hospital01-26-2025 Note Not in exacerbation Continue furosemide, coreg, asaUnBellevue Hospital01-26-2025 NoteOrtho following, concern for possible infection Admit to med surg Activity orders per ortho with LLE Cardiac diet Will get labs this morning and follow up on results Daily bmp and cbc to monitor kidney function, electrolytes, hgb and wbc Case will be discussed with attending physicianMercy Health St. [facility]01-[facility]-2025 NoteHospital Medicine History and Physical 10/08/2024 7:26 AM THE HOSPITALIST TEAM PREFERS TO USE [employer] FOR NON-URGENT COMMUNICATION 7AM-7PM. IF I DO NOT RESPOND WITHIN 20 MINUTES OR URGENT MATTERS, PLEASE CALL THROUGH THE RECRUITMENT MANAGER. FROM 7PM-7AM, PLEASE PAGE [phone](COVR). Chief Complaint Chief Complaint Patient presents with Cellulitis History of Present Illness Matty Garces is an 54 y.o. male who came from [facility] with LLE cellulitis. Patient has PMH of hypertension, diastolic heart failure, GERD, anxiety. He recently was admitted here and had right leg tib/fib fracture and seen by our ortho team and had closed insertion with intramedullary wendy on 09/24/24 and was discharged home. He reports he went to [place] ER due to increased pain, swelling and [...] this hospital stay by a member of [facility]. Past Medical History Past Medical [...] Food Insecurity (more content not included)...[facility]01-20-2025 Telephone encounter Note* Telephone Encounter - Marianna Sheehan LPN - 10/02/2024 2:19 PM EST Provigil refill request to [facility] sent to provider. Last appt. 07/03/24 [id number] Miscellaneous Notes* Telephone Encounter - Marianna Sheehan LPN - 10/02/2024 2:19 PM EST Provigil refill request to [facility] sent to provider. Last appt. 07/03/24 documented in this encounterBates County Memorial [id number] NoteTrauma team informed at approximately 1730 per [facility] that patient went into a-flutter and sustained for approximately 2 hours from approximately 2950-4408. Trauma team ordered a STAT ECG and [...] AMA AMA paperwork reviewed and signed [facility]01-16-2025 Note09/28/24 1537 Home Oxygen Therapy Evaluation Pulse Oximetry on room air at Rest 94 Pulse Ox on room air while walking 96 Patient Qualification for home oxygen Does not qualify for home oxygen this visit (When pt is sleeping, apnea is noted and at times saturation drops but when pt is awake and moving his oxygenation is stable)[facility]01-16-2025 NoteUnSt. [facility]'s Hospital Trauma Surgery Progress Note Subjective Patient [...] Value Ventricular Rate 82 Atrial Rate 82 GA Interval 164 QRS DURATION 92 QT Interval 386 QTC CALCULATION(BAZETT) 450 P Fors[place] 61 R-Forsyth 18 T Wave Fors[place]th 69 Impression Normal sinus rhythm Normal ECG [...] recommending walker, commode, and rolling wheelchair.[facility]01-16-2025 Note Physical Therapy Physical Therapy Treatment [...] and recliner (more content not included)...[facility]01-16-2025 NoteOccupational Therapy Occupational Therapy Treatment Patient [...] apnea) Gastroesophageal reflux disease Obese Co-tx with STORE CLERK CASHIER to facilitate purposeful activity, 2/2 high fall risk, impaired dyn standing balance & act tolerance, poor safety awareness, & poor safety awareness with STS, transfers, & functional ambulation; To maintain safety of patient & staff. 09/28/24 1358 OT Last Visit OT Received On 09/28/24 General Subjective I got my w/c 3rd hand...from my calplj-nf-cxq. Treatment Duration (min) 55 Minutes Response to [...] not maintain precs. General Assessment Hearing mild [place] Skin Integrity ALVARO wrap to RLE, DFU [...] during mary lou-care post BM, standing at [facility]. Unsteadiness present. Static Sitting Balance Static Sitting-Balance Support Feet supported Static Sitting-Level of Assistance Distant supervision Static Sitting-Comment/Number of Minutes Supervision for safety Dynamic Sitting Balance Dynamic Sitting-Balance Support Feet supported;Unilateral upper extremity supported Dynamic Sitting Balance-Level of Assistance Close supervision Dynamic Sitting-Comments SBA for safety scooting EOB, positioning on [facility] Static Standing Balance Static Standing-Balance Support With [...] mary lou-care & hygiene in stance at [facility] with RW. Add'l SBA for safety. Pt very unsteady with poor awareness. CGA during functional ambulation with device. Cues for safety awareness, & maintaining WB precs. Bed Mobility 1 Bed Mobility From 1 Supine Bed Mobility Type 1 To Bed Mobility to 1 Short sit Level of Assistance 1 Close superv (more content not included)...[facility]01-16-2025 NoteCalled [employer] by phone to check on status of pt's DME (wheelchair, walker, bedside commode). Was advised they did not receive it via [facility] [employer] and would need it direct faxed to [phone]. Faxed referral and was advised they will [...] to call . UPDATE 3:05PM- Spoke with [employer] again and was advised the wheelchair could [...] discharge around 6pm tonight. Also spoke with [facility] and was provided w/ fax [phone] to send AVS once ready. UPDATE 4:05PM- Direct faxed final AVS to [facility]01-16-2025 NoteUnSt. Anthony's Hospital Vascular and Wound Surgery DAILY PROGRESS [...] 7 days Lab Units 09/28/24 0358 09/27/24 03509/26/2444609/25/2440609/24/24 0355 SODIUM mmol/L 135* 137 139 134* [...] cardiomediastinal silho (more content not included)...[facility]01-15-2025 NoteDischarge Planning: Home with [facility] The patient was accepted by [facility]. DME referral sent to [facility]. The patient would like the DME either delivered to the hospital or his home prior to discharge.[facility]01-15-2025 Note Occupational Therapy Occupational Therapy Treatment Patient Name: Matty Garces : 1970 Today's Date: 09/27/2024 Time in:1357 Time out:1450 Total time:53 minutes,23 min OT, additional for STORE CLERK CASHIER [place] provided to maximize safety as progressed [...] Transfers 2 (more content not included)...[facility]01-15-2025 Note Physical Therapy Physical Therapy Treatment [...] lift, balance, (more content not included)...[facility]01-15-2025 Note Attestation signed by Fahad Rizzo MD at 09/28/2024 7:41 AM Patient seen and examined with trauma team [facility] Trauma Surgery Progress Note Subjective [...] kg (299 lb 2.6 oz) (09/27 338) [place] Coma Scale Score: 15 Intake/Output Summary (Last [...] Value Ventricular Rate 82 Atrial Rate 82 GA Interval 164 QRS DURATION 92 QT Interval 386 QTC CALCULATION(BAZETT) 450 P Forsyth 61 R-Forsyth 18 T Wave Fors[place] 69 Impression Normal sinus rhythm Normal ECG [...] findings. Respiratory: (more content not included)...[facility] 09-26-2024 NotePer patients patient was to start with Radha Mendenhall [facility] on the day of admit. Referral made as requested. SW following.[facility]01-14-2025 NoteUnSt. Anthony's Hospital Vascular and Wound Surgery DAILY PROGRESS NOTE Subjective Patient seen and examined at bedside. No acute events overnight. Vital signs stable. Denies pain to the left ulcer. Patient states he follows regularly with wood gouger at OSH and plans to follow-up with [...] requirements. COMPARISON: (more content not included)...[facility] 09-26-2024 NoteOccupational Therapy Occupational Therapy Treatment [...] on with B LE's elevated Objective 2 Prototype Engineer discussed importance of discharging to facility for continued therapy prior to going home however, pt declines. Pt transfers are currently unsafe with lyric writer questioning ability to maintain WB status. [...] Other Pt is impulsive during standing/transfer activities. Prototype Engineer questions pts safety while at home. General [...] endurance, Decreased functional mobility, Decreased IADLs OT Assessment/MUSIC SOUND LIGHT TECHNICIAN Summary: Pt would benefit from continued [...] training, Patient/f (more content not included)...[facility]01-14-2025 NoteOrthopaedic Surgery Orthopaedic Surgery Progress Note [...] INDICATIONS: ORIF COMPARISON: Preoperative films FINDINGS: Intramedullary ewndy in place. Multiple fracture planes of the [...] Can be reached at the orthopedic pager: [phone] Luis Felipe Rivas MD 09/26/24 7:24 AM Ortho Pager: [phone] Hospital01-14-2025 Note [facility] Trauma Surgery Progress Note Subjective [...] kg (303 lb 9.2 oz) (09/26 043) [place] Coma Scale Score: 15 Intake/Output Summary (Last [...] Value Ventricular Rate 82 Atrial Rate 82 GA Interval 164 QRS DURATION 92 QT Interval 386 QTC CALCULATION(BAZETT) 450 P [place] 61 R-Forsyth 18 T Wave Fors[place]th 69 Impression Normal sinus rhythm Normal ECG When compared with ECG of 23-SEP-2024 14:15, No significant change was found Confirmed by Fabian RMA, JESSICA Carr ([id number]) on 09/24/2024 10:24:43 PM [...] -Telemetry monitori (more content not included)...[facility]01-13-2025 NotePt was seen early this morning about wearing BiPap for possible sleep apnea due to periods of apnea and decreased oxygen saturation overnight. Pt refused BiPap, stating he has tried it before and it gives him migraines. Pt was agreeable to wearing a salter at night to help with oxygenation.[facility]01-13-2025 Note09/25/24 1528 Referral Data Referral Source nuclear worker technician Referral Reason Follow up;Information Patient Information Primary Caregiver Spouse Activities of Daily Living Assistive Device Walker;Wheelchair Behavior Oriented Communication Talks;Understands speaking Discharge Planning Living Arrangements Spouse/significant other Support Systems Spouse/significant other Type of Residence Private residence;[facility] (await name of agency from ) Post Acute Services In home services (agreeable to [facility]) Type of Home Care Services (Current) Skilled Home Servicies;Home OT;Home PT ([facility] was just going to start services before admit) Patient's goal for discharge home with [facility] Does the patient need discharge transport arranged? No () Screened by [facility]. Pt declines SNF placement and is agreeable to take pt home with [facility]. Await name of [facility] agency that was approved to start services. Pt will likely need RT for home O2. Will follow up with pt's for [facility] agency. thinks [facility] agency is [employer] [facility] or [employer] [facility]. SW will follow with referrals.[facility]01-13-2025 Note09/25/24 1332 Admission Assessment Questions Verify [...] Status Interested Does the patient have a lead case manager assigned to them through their insurance? No Living Arrangement (Current/Prior to Hospitalization) Private residence;Home self care Does the patient have history of HHC or SNF? Yes (pt could not remember the [facility] agency name, neither could ) Assistive [...] with , patient deferred to .[facility]01-13-2025 NoteThe findings from this face to face encounter indicate the reason this patient requires a bedside commode. Patient is physically incapable of using regular toilet facilities. Patient is confined to 1 level of the home with no toilet on that level Marilou Tomlin [facility] Department of Surgery - Trauma [phone]01-13-2025 NoteThe findings from this face to [...] is provided in the home Marilou Tomlin [facility] Department of Surgery - Trauma [facility]-[address] [place], [place] 1955501-13-2025 NoteThe findings from this face to face [...] been discussed with the patient Marilou Tomlin [facility] Department of Surgery - Trauma [phone] [place], [place] [address]01-13-2025 NotePhysical Therapy Physical Therapy Evaluation Patient Name: [...] demo General Assessment General Assessment Hearing: mild [place] Skin Integrity: alvaro wrap to RLE, wound [...] Level of Function Prior Function Level of [place]: Independent with ADLs and functional transfers, Independent [...] Inattention/Neglect: A (more content not included)...[facility]01-13-2025 Note Attestation signed by Gabriel Seay [...] meet criteria for admission to IPR: Assessment: [place] fracture of the right tibial shaft and [...] Plan of Care: Patient with diagnosis of [place] fracture of the right tibial shaft and [...] 1,000 mg, 1,000 mg, oral, q8h, ROMAIN Aecvedo, 1,000 mg at 09/25/24 0647 calcium tablet 500 mg, 500 mg, oral, TID wit (more content not included)... [facility]01-13-2025 NoteOccupational Therapy Occupational Therapy Evaluation Patient [...] carryover General Assessment General Assessment Hearing: Mild [place] Skin Integrity: ALVARO wrap to RLE, DFU [...] WB de (more content not included)...[facility]01-13-2025 NoteOrthopaedic Surgery Orthopaedic Surgery Progress Note [...] Rivas MD 09/25/24 7:02 AM Ortho Pager: [phone] Hospital01-13-2025 Note [facility] Trauma Surgery Progress Note Subjective [...] Value Ventricular Rate 82 Atrial Rate 82 GA Interval 164 QRS DURATION 92 QT Interval 386 QTC CALCULATION(BAZETT) 450 P Forsyth 61 R-Forsyth 18 T Wave Forsyth 69 Impression Normal sinus rhythm Normal ECG [...] an (more content not included)... [facility]01-12-2025 NoteUnSt. Anthony's Hospital Vascular Surgery/Wound Care CONSULTATION Reason for Consult: Left foot ulcer Subjective History of Present Illness: Matty Garces is a 53 y.o. male with a PMH of DM, HTN, HF and recent cellulitis to [facility] . He is admitted for transverse [...] BID, ROMAIN Acevedo, 1 tablet at 09/24/24 2575 Social History Socioeconomic History Marital status: Spouse [...] Effort: Pulmonar (more content not included)...[facility]01-12-2025 NoteOrthopaedic Surgery Orthopaedic Surgery Progress Note [...] BRO MD 09/24/24 10:29 PM Ortho Pager: [phone] Hospital01-12-2025 Note Patient: Matty Garces Procedure Summary Date: 09/24/24 Room / Location: [facility] OPERATING ROOM 05 / [facility] Operating Room Anesthesia Start: 1020 Anesthesia [...] status: acceptable No notable events documented.[facility]01-12-2025 Note Airway Date/Time: 09/24/2024 10:35 AM Urgency: elective General Information and Staff Patient location during procedure: OR Anesthesiologist: Jeffery Casey MD Resident/COATING MIXER TENDER/CAA: Kenneth Marina MD Performed: resident/COATING MIXER TENDER/CAA Indications and Patient Condition Indications for airway [...] approach: 1 Number of other approaches attempted: 0UnBellevue Hospital 09-24-2024 NotePatient: Matty Garces Procedure Information Date/Time: 09/24/24 1000 Procedure: CLOSED INSERTION, INTRAMEDULLARY WENDY, TIBIA (Right: Leg Lower) Location: [facility] OPERATING ROOM 05 / [facility] Operating Room Surgeons: Sandrine Field MD Relevant [...] Value Ventricular Rate 97 Atrial Rate 97 GA Interval 156 QRS DURATION 84 QT Interval 368 QTC CALCULATION(BAZETT) 467 P Forsyth 54 R-Forsyth 60 T Wave Forsyth 12 Impression Normal sinus rhythm Normal ECG [...] attending and resident. Additional Equipment RequestsMercy Health St. Elizabeth [facility]01-12-2025 Note Subjective Patient resting comfortably in [...] LLE, wounds (more content not included)...[facility]01-12-2025 NotePhysical Therapy Name: Matty Garces Date of : 1970 Today's Date: 09/24/24 Pt is unable to be seen for therapy at this time secondary to Surgery today for fixation of frature. Will check back and complete therapy session as appropriate. Check No Charge Time attempted: 0759 Janet Lovelace PT, [facility]ENTERUnB[facility]01-12-2025 Note Orthopaedic Surgery Orthopaedic Surgery Progress [...] Rivas MD Orthopaedic Surgery, PGY-2 Ortho Pager [phone] 09/24/24 7:29 AM I am available via [employer] chat 6a-6p. May contact the on-call resident with any concerns via the Orthopaedic pager at any time.[facility]10-22-2024 Telephone encounter Note* Telephone Encounter - Nita Anthony - 07/04/2024 4:10 PM EDT left message regarding prescriptions earlier today and not being at pharmacy. I did call back and spoke to advising they were sent this afternoon. had mentioned Dr. Geiger was also going to start a Vitamin B to help boost energy in the morning. [facility] [place]. [facility] [id number] Miscellaneous Notes* Telephone Encounter - Nita Anthony - 07/04/2024 4:10 PM EDT left message regarding prescriptions earlier today and not being at pharmacy. I did call back and spoke to advising they were sent this afternoon. had mentioned Dr. Geiger was also going to start a Vitamin B to help boost energy in the morning. [facility] in [place]. documented in this encounterBates County [facility] [id number] History of Present illness Narrative* Rubén Geiger [...] 1 mg, Oral, 2 times daily HYDROcodone-acetaminophen ([place]) 5-325 MG tablet hydrOXYzine pamoate (Vistaril) 25 [...] reflexes: Alycia's absent. Ankle clonus absent. Coordination Bdeyzn-pp-tlgx, rapid alternating movements and uzcb-rx-pigg normal bilaterally without dysmetria. Gait Normal casual, [...] Follow up 3 months. documented in this encounterBates County Memorial [id number] NotePROCEDURE: XR FOOT LT MIN 3 VIEWS [...] Electronically authenticated by: ALVINA CAICEDO Date: 2022-03-26 10:47[facility]06-15-2022 Hospital Discharge instructions Patient Education 02/25/2022 [...] Watch the hydrocele for any changes. Take ngsr-qed-zwbfxqf and prescription medicines only as told by [...] 02/17/2011 Document Revised: 09/10/2018 Document Reviewed: 09/10/2018 [employer] Patient Education 2020 Project 10K. Follow Up Care 01/28/2022 10:36:35 With:Mitchel DELGADO, CHINA Gregorio, URO Address: When: Unknown [facility] evaluation + Plan note No data available for this section [facility] evaluation noteNo assessment information available [facility] Work Phone: Evaluation note* Diagnosis [...] with status migrainosus documented in this encounter [facility]* Diagnosis Onset Date Resolution Status Admit Date Hypertrophy of bone of lower leg noneactiveAugust 2024 11:21amFracture of right tibia and fibulanoneactive May 07, 2025 11:21amRight leg painnoneactiveAugus2024 11:21am [facility] Work Phone: Evaluation note* Diagnosis [...] for this section [facility] reason for referral (narrative)No reason for referral information availableWooster Community Hospital Work Phone: Summary Purpose Family History [...] May 11:42am Hospital Course Note MR#: [id number] [facility] [...] CREATED AUTHOR 07/19/[address] [facility] DATE CREATED AUTHOR AUTHOR'S ORGANIZ ATION 02/27/2022 [facility] DATE CREATED AUTHOR AUTHOR'S ORGANIZ ATION 12/08/2022 [facility] DATE CREATED AUTHOR AUTHOR'S ORGANIZ ATION 12/03/2023 [facility] DATE CREATED AUTHOR AUTHOR'S ORGANIZ ATION 10/15/[address] [facility] DATE CREATED AUTHOR AUTHOR'S ORGANIZ ATION 06/23/2025 [facility] DATE CREATED AUTHOR AUTHOR'S ORGANIZ ATION 07/15/2025 [facility] EPIC Care Team (unrecognized sect ion and content) Team Status: Inactive Member Role Status Dates Trey aVllejo DPM MS Attending Provider Active Start: January 03, 2024 End: January 03, 2024Team MemberRelationshipSpecialtyStart DateEnd Date Venus Jaeger MD [address] [place] [address] PCP - GeneralFamily Medicine01/10/24Team MemberRelationshipSpecialtyStart DateEnd Date Venus Jaeger MD [address] [place] [address] PCP - GeneralFamily Medicine01/10/24Team MemberRelationshipSpecialtyStart DateEnd Date Venus Jaeger MD [address] [place] [facility] [address] PCP - GeneralFamily Medicine01/10/24Team MemberRelationshipSpecialtyStart DateEnd Date Venus Jaeger MD [address] [place] [facility] [address] PCP - GeneralFamily Medicine01/10/24 Team Status: Inactive Member Role Status Dates Trey Valeljo DPM MS Attending Provider Active Start: September 21, 2024 End: September 21, 2024Team MemberRelationshipSpecialtyStart DateEnd Venus Jaeger MD [address] [place] [facility] [address] PCP - GeneralFamily Medicine01/10/24Team MemberRelationshipSpecialtyStart DateEnd Venus Jaeger MD [address] [place] [facility] [address] PCP - GeneralFamily Medicine01/10/24Team MemberRelationshipSpecialtyStart DateEnd Date Venus Jaeger MD [address] [place] [facility] [address] PCP - GeneralFamily Medicine01/10/24Team MemberRelationshipSpecialtyStart DateEnd Date Venus Jaeger MD [address] [place] [facility] [address] PCP - GeneralFamily Medicine01/10/24Team MemberRelationshipSpecialtyStart DateEnd Date Venus Jaeger MD [address] [place] [address] PCP - [facility]01/10/24Team MemberRelationshipSpecialtyStart DateEnd Date Venus Jaeger MD PCP - [facility]01/10/24Team MemberRelationshipSpecialtyStart DateEnd Date Venus Jaeger MD PCP - [facility]01/10/24Team MemberRelationshipSpecialtyStart DateEnd Venus Jaeger MD PCP - [facility]01/10/24 Team Status: Active Member Role Status Lacey Jaeger MD Primary Care Provider Active Team Status: Inactive Member Role Status Lacey Jaeger MD Primary Care Provider Active Start: May 07, 2025 End: May 07, 2025JuDania Paulson ProviderActiveStart: May 07, 2025 End: May 07, 2025Team MemberRelationshipSpecialtyStart DateEnd Date Venus Jaeger MD PCP - [facility]01/10/24Team MemberRelationshipSpecialtyStart DateEnd Venus Jaeger MD PCP - [facility]01/10/24 Team Status: Inactive Member Role Status Lacey Jaeger MD Primary Care Provider Active Start: May 29, 2025 End: May 29, 2025Justin A Pauly , DOAttending ProviderActiveStart: May 29, 2025 End: May 29, 2025 Team Status: Inactive Member Role Status Dates Bonnie Ernandez MD Attending Provider Active Sta rt: June 20, 2025 End: June 20, 2025Team MemberRelationshipSpecialtyStart DateEnd Date Venus Jaeger MD [address] [place] [id number] PCP - [facility]07/13/25Team MemberRelationshipSpecialtyStart Date End Date Venus Jaeger MD [address] [place] [id number] PCP - [facility]07/13/25 Goals (unrecognized section and content) Goals may [...] BE BASED ON THE PRIMARY CLINICAL RECORDS. [employer] [facility]. provides no warranty or guarantee of the accuracy or completeness of information in this document.
== END 2025-07-18 11:35 | disposition home or self-care (01) ==
LOC: WC 11:34
PROVIDERS: PCP Family Medicine; Visit Provider Physician Assistant
DX: T87.89 Other complications of amputation stump (principal); E11.621 Type 2 diabetes mellitus with foot ulcer; L97.525 Non-pressure chronic ulcer of other part of left foot with muscle involvement without evidence of necrosis
CPT/HCPCS: 11043

== ENCOUNTER 2025-08-01 09:38 | Outpatient (OUT) | payer MEDICAID, SELFPAY ==
--- OUTSIDE RECORDS SUMMARY | 2025-08-01 09:46 | XMS_ITS | CCD ---
Author Organization [facility]iniSy[facility] Care Team Providers Care Electrician Front Name Role Phone UNKNOWN, PROVIDER Admitting Unavailable UNKNOWN, PROVIDER Attending Unavailable VENUS JAEGER Referring Unavailable VENUS JAEGER Primary Care Unavailable AK Procedure Practitioner Unavailab le UNKNOWN, PROVIDER Surgeon Unavailable AK Procedure Practitioner Unavailab le SANDRA BILL Surgeon Unavailable UNKNOWN, PROVIDER Admitting Unavailable UNKNOWN, PROVIDER Attending Unavailable VENUS JAEGER Referring Unavailable VENUS JAEGER Primary Care Unavailable AK Procedure Practitioner Unavailab le UNKNOWN, PROVIDER Surgeon [...] Woo Attending Unavailable CHINO Vallejo Attending Provider [phone] Venus Jaeger MD Primary Care Provider [phone] Yoni MAGANA, Trey Smith Attending Provider [phone] MARIANNA SUAREZ Referring Unavailable SUYAPA, SHIN Referring Unavailable SUYAPA, SHIN Referring Unavailable SELMA, SANDRINE Referring Unavailable MAI, WADEER Referring Unavailable SUYAPA, SHIN Referring Unavailable SUYAPA, SIHN Referring Unavailable HINDERS, MARILOU Referring Unavailable AMEGEE, [...] [phone] Venus Jaeger MD Primary Care Provider [phone] Jameel Coats DO Attending Provider Bonnie Ernandez MD Attending Provider Trey Vallejo Attending Unavailable Trey Vallejo Admitting Unavailable Bonnie Ernandez Attending Unavailable Bonnie Ernandez Admitting Unavailable Jameel Coats Attending Unavailable Jameel Coats Admitting Unavailable Venus Jaeger Primary Care Unavailable Venus Jaeger MD Primary Care Provider [phone] RUBÉN GEIGER Attending Unavailable RUBÉN GEIGER Attending Unavailable RUBÉN GEIGER Attending Unavailable HEATHER RAINEY Attending Unavailab le Allergies Allergy ClassificationReported Allergen(s)Allergy TypeDate of OnsetReaction(s) Facility (1 source)AspartameDrug Fcghiql36-64-0459Wxd [facility] (1 source)avoid; Translations: [Unknown]Propensity to adverse reactions (disorder)88-19-1863Lpr [facility] (1 source)vitamin B12; Translations: [cyanocobalamin]Drug AllergyUnknown (qualifier value)[facility] (1 source)Acetaminophen / HYDROcodoneDrug AllergyThe [facility] ([facility] source)CorticosteroidsDrug allergy (disorder)[facility] (1 source)fentaNYLDrug AllergyThe [facility] (1 source)Misc-Food; Translations: [Misc-Food]Food allergy (disorder)[facility] (20 sources)fentaNYLDrug Unmwwar54-54-5994VrvxnsqXRYJ [facility] (20 sources)HYDROcodoneDrug Xjkhbrq92-22-3413KhauxgwHMHT Healthcare (20 sources)Morphine And CodeineDrug Dgoavcw24-01-9534UhyrkjnGQQY Healthcare (20 sources)OtherPropensity to adverse vjblonfwo01-44-3438V[facility] (1 source)CorticosteroidsDrug allergy (disorder)22-38-9899[facility] Medications Current Medications MedicationDrug Class(es)DatesSig (Normalized)Sig (Original)acetaminophen 325 mg / HYDROcodone bitartrate 5 mg oral tablet (20 sources)Opioid AgonistStart: 17-80-2633VWSHKsvjouj-acetaminophen ([place]) 5- 325 MG tablet 03/20/2024 Activeamantadine hydrochloride 100 mg oral tablet (20 sources)Influenza A M2 Protein InhibitorStart: 05-07-2025 End: 02-76-3759jyir 1 tablet by mouth in the morningamantadine (Symmetrel) 100 MG tablet Indications: Excessive daytime sleepiness , Primary insomnia TAKE 1 TABLET (100 MG) BY MOUTH IN THE MORNING AND AT NOON 60 tablet 11 05/16/2025 05/16/2026 ActiveStart: 04-10-2024 End: 22-71-9646wtzz 1 tablet by mouth in the morningamantadine (Symmetrel) 100 MG tablet Indications: Excessive daytime sleepiness , Primary insomnia Take 1 tablet (100 mg) by mouth in the morning and at noon 180 tablet 3 04/10/2024 04/10/2025 Activeaspirin 81 mg delayed release oral tablet (20 sources)Platelet Aggregation Inhibitor, Nonsteroidal Anti-inflammatory Drug Start: 76-97-0749yfkw 1 tablet by mouth once dailyASPIRIN 81 MG chewable tablet Chew 81 mg in the morning. ActiveB-D 3CC LUER-SAYRA SYR 23GX1 23G X 1 3 ML misc (20 sources)Start: 51-30-4866W-D 3CC LUER-SAYRA SYR 23GX1 23G X 1 3 ML misc USE 1 SYRINGE INTRAMUSCULARLY ONCE A WEEK 05/18/2023ctiveBiotin (20 sources)Start: 87-33-3060UBDWVJ BIOTIN Start Date: 02/26/22 Status: Ordered Start: 00-19-0873wyyd 1 tablet by mouth once dailycelecoxib 100 mg oral capsule (20 sources)Nonsteroidal Anti-inflammatory DrugCeleBREX 100 MG capsule 1 (one) time each day at the same time Activecholecalciferol 0.125 mg oral capsule (20 sources)Vitamin DStart: 22-14-4335avephvbnmjrhlfb (Vitamin D-3) 125 MCG (5000 UT) capsule 03/15/2024 ActiveclonazePAM 1 mg oral tablet (20 sources)BenzodiazepineStart: 03-27-2024 End: 51-38-4538hoks 1 tablet by mouth at bedtimeclonazePAM (KlonoPIN) 1 MG tablet Indications: Primary insomnia Take 1 tablet (1 mg) by mouth at bedtime 30 tablet 2 07/04/2024 ActiveStart: 80-50-2019ZtkpijeDUV 0.5 mg Tab Refills(s) 0 Start Date: 02/26/22 Status: OrderedStart: 70-31-9298dayw 2 tablets by mouth at bedtimeStart: 31-90-8533irom 1 mg by mouth at bedtimeClonazepam Active 0.05 mg/kg PO Bedtime May 14, 2018 12:00amdiazePAM 5 mg oral tablet (5 sources)BenzodiazepineStart: 08-94-4626gggh 1 tablet by mouth at bedtime diclofenac sodium 75 mg delayed release oral tablet (5 sources)Nonsteroidal Anti-inflammatory DrugStart: 11-46-5442nomd 1 tablet by mouth twice dailydoxazosin 8 mg oral tablet (20 sources)alpha-Adrenergic BlockerStart: 01-39-2007gvagaarox 8 mg oral tablet Refills(s) 0 Start Date: 02/26/22 Status: Ordereddoxepin hydrochloride 10 mg oral capsule (20 sources)Tricyclic AntidepressantStart: 39-84-0511jetqqde 10 mg Cap Refills(s) 0 Start Date: [...] 600 mg oral tablet (20 sources)Anti-epileptic AgentStart: 10-59-2056qklc 1 tablet by mouth three times dailyglycopyrrolate 1 mg oral tablet (20 sources)Start: 93-08-8562nszb 1 tablet by mouth in the morningglycopyrrolate (Robinul) 1 MG tablet Take 1 mg by mouth in the morning and 1 mg before bedtime. 01/22/2023 ActiveStart: 79-09-8672qsdkzbcmzzebqu 1 mg oral tablet Refills(s) 0 Start Date: 02/26/22 Status: OrderedhydrOXYzine pamoate 25 mg oral capsule (20 sources)AntihistamineStart: 85-23-3686dddh 1 capsule by mouth once daily at bedtimehydrOXYzine pamoate (Vistaril) 25 MG capsule Indications: Primary insomnia TAKE ONE CAPSULE BY MOUTH ONCE DAILY AT BEDTIME 30 capsule 11 05/11/2024 Activelisinopril 10 mg oral tablet (5 sources)Angiotensin Converting Enzyme InhibitorStart: 81-25-7813dqbp 1 tablet by mouth once dailymeclizine hydrochloride 25 mg chewable tablet (20 sources)AntiemeticMeclizine HCl 25 MG chewable tablet Chew 25 mg 1 (one) time each day at the same time. Activemelatonin 10 mg oral capsule (20 sources)Start: 07-14-2023 End: 79-01-6318sfjj 1 capsule by mouth at bedtimeMelatonin 10 MG capsule Indications: Primary insomnia Take 10 mg by mouth at bedtime 90 capsule 3 07/04/2025 ActiveMultiple Vitamins-Minerals (Multi For Him 50+) tablet (20 sources)Multiple Vitamins-Minerals (Multi For Him 50+) tablet as directed Orally Activeomeprazole 40 mg delayed release oral capsule (5 sources)Proton Pump InhibitorStart: 89-13-4526nvnv 1 capsule by mouth twice dailyondansetron 4 mg oral tablet (20 sources)Serotonin-3 Receptor AntagonistStart: 11-14-2024 End: 66-48-8730bhmm 2 tablets by mouth every eight hours for nauseaondansetron (Zofran) 4 MG tablet Indications: Projectile vomiting with nausea Take 2 tablets (8 mg)by mouth every 8 (eight) hours if needed for nausea or vomiting 30 tablet 3 11/14/2024 12/14/2024 ActiveStart: 96-27-1535mqwhzfusffd ODT (Zofran-ODT) 4 MG disintegrating tablet 03/15/2024 ActiveStart: 36-35-8893qfvfjuwqtqd (Zofran) 4 MG tablet Take 4 mg by mouth if needed. ActiveOXcarbazepine 300 mg oral tablet (20 sources)Anti-epileptic Agenttake 1 tablet by mouth at bedtimeOXcarbazepine (Trileptal) 300 MG tablet Take 300 mg by mouth at bedtime. Activeoxybates, calcium, magnesium, potassium and sodium, (Xywav) 500 MG/ML solution (2 sources)Start: 04-04-2025 End: 60-34-6189oyga 3.75 g by mouth at bedtimeoxybates, calcium, magnesium, potassium and sodium, (Xywav) 500 MG/ML solution Indications: Narcolepsy cataplexy syndrome (HCC) Take 3.75 g by mouth at bedtime 225 mL 2 04/04/2025 05/04/2025 Activepotassium chloride 10 meq extended release oral tablet (20 sources)Start: 74-31-6942abbp 1 tablet by mouth at mealtimepotassium chloride CR (Klor-Con) 10 MEQ ER tablet Take 10 mEq by mouth in the morning. Take with food. . 02/22/2023 Activesennosides, halfway 8.6 mg oral tablet (20 sources)Start: 10-39-2501fffsf (Senokot) 8.6 MG tablet 03/15/2024 Active simvastatin 20 mg oral tablet (20 sources)HMG-CoA Reductase InhibitorStart: 01-45-0807bdwo 1 tablet by mouth once dailySUMAtriptan 100 mg oral tablet (20 sources)Serotonin-1b and Serotonin-1d Receptor AgonistStart: 73-79-9510axrv 1 tablet by mouth onceSUMAtriptan (Imitrex) 100 MG tablet Take 100 mg by mouth 1 (one) time if needed. Active1 ml testosterone cypionate 200 mg/ml injection (20 sources)Androgentestosterone cypionate (Depo-Testosterone) 200 MG/ML injection Inject 200 mg into the shoulder, thigh, or buttocks every 14 (fourteen) days. Activethiamine 100 mg oral tablet (15 sources)Start: 07-05-2024 End: 35-52-2351pzno 1 tablet by mouth once dailythiamine (Vitamin B-1) 100 MG tablet Indications: Excessive daytime sleepiness Take 1 tablet (100 mg) by mouth Daily 30 tablet 11 07/05/2024 07/05/2025 ActivetiZANidine 4 mg oral capsule (20 sources)Central alpha-2 Adrenergic AgonistStart: 84-21-5484iexo 1 capsule by mouth at bedtimetake 1 tablet by mouth at bedtimetiZANidine (Zanaflex) 4 MG tablet Take 4 mg by mouth at bedtime. ActiveVit D3-Folic Dkyu-N7-W2-B12 (1 source)Start: 65-90-7594nwft 1 tablet by mouth once dailyVit D3-Folic Udog-N8-C0-B12 Active 1 TAB PO Daily May 14, 2018 12:00amVit D3-Folic Xwri-R7-G9-B12 2,000-800-0.32 unit-mcg-mg Tablet (4 sources)Start: 95-07-9359iqab 1 tablet by mouth once dailyStart: 05-14-2018 take 1 tablet by mouth once dailyVit D3-Folic Ebvj-S8-K7-B12 2,000-800-0.32 unit-mcg-mg Tablet Active 1 TAB PO Daily May 13, 2018 11:00pm Completed/Discontinued Medications MedicationDrug Class(es)DatesSig (Normalized)Sig (Original)apixaban 5 mg oral tablet (3 sources)Factor Xa InhibitorStart: 14-86-8983Ajzvqufn (Eliquis) 5 mg tablet Discontinued MG PO May 07, 2025 12:00amcarvedilol 25 mg oral tablet (20 sources)alpha-Adrenergic Jorge L, beta-Adrenergic BlockerStart: 02-26-2022 Carvedilol 25 mg tablet Discontinued MG PO May 07, 2025 12:00amStart: 97-86-9220tida 1 tablet by mouth twice dailycitalopram 40 mg oral tablet (20 sources)Serotonin Reuptake InhibitorStart: 56-65-5147Sikqufofov 40 mg tablet Discontinued MG PO May 07, 2025 12:00amStart: 96-70-9617SsoeEX 20 MG tablet 1 (one) time each day at the same time. 06/02/2023 Activefurosemide 20 mg oral tablet (20 sources)Loop DiureticStart: 70-42-5049Juujlzwzwz 20 mg tablet Discontinued MG PO May 07, 2025 12:00ammodafinil 200 mg oral tablet (20 sources)Sympathomimetic-like AgentStart: 05-07-2025 End: 55-96-3587kweb 1 tablet by mouth in the morningmodafinil (Provigil) 200 MG tablet Indications: Excessive daytime sleepiness , Obstructive sleep apnea TAKE 1 TABLET (200 MG) BY MOUTH IN THE MORNING AND AT NOON 60 tablet 2 05/16/2025 07/13/2025 Discontinued (Reorder)Start: 04-10-2024 End: 47-29-7411whsb 1 tablet by mouth in the morningmodafinil (Provigil) 200 MG tablet Indications: Excessive daytime sleepiness , Obstructive sleep apnea Take 1 tablet (200 mg) by mouth in the morning and at noon 180 tablet 01/03/2025 ActiveStart: 71-86-8600pqilncnhh 200 mg Tab Refills(s) 0 Start Date: 02/26/22 Status: Orderedpantoprazole 40 mg delayed release oral tablet (20 sources)Proton Pump InhibitorStart: 57-49-7082Pyktqueztnfj 40 mg tablet,delayed release (DR/EC) Discontinued MG PO May 07, 2025 12:00am Problems Active Problems Problem ClassificationProblemDateDocumented DateEpisodic/ChronicAnxiety disorders (20 sources)Anxiety disorder, unspecified; Translations: [Anxiety disorder] Onset: 943975-12-9494SiwkiskAteypuqce and vision defects (1 source)Unspecified visual loss; Translations: [UNSPECIFIED VISUAL LOSS]Onset: 08-76-2693BukhdifKshmfgwunv heart failure; nonhypertensive (20 sources)Chronic combined systolic and diastolic heart failure; Translations: [Chronic combined systolic (congestive) and diastolic (congestive) heart failure]Onset: 655229-48-3356EhcfyjvHbkgxbqc, dementia, and amnestic and other cognitive disorders (20 sources)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; Translations: [Unspecified mental disorder due to known physiological condition]Onset: 857073-90-0612ShuwwjqLalypsxp mellitus without complication (20 sources)Type 2 diabetes mellitus without complications; Translations: [Diabetes mellitus without complication]Onset: hronic Disorders of lipid metabolism (1 source)Pure hypercholesterolemia, unspecified; Translations: [PURE HYPERCHOLESTEROLEMIA UNSPEC]Onset: 63-49-9508MkcpzfmR Codes: Place of occurrence (2 sources)Unspecified place in unspecified non-institutional (private) residence as the place of occurrence of the external cause; Translations: [Unspecified place in unspecified non-institutional (private) residence as the place of occurrence of the external cause]Onset: 50-32-7135FpjjyepfNbbhojmdgf disorders (1 source)Gastro-esophageal reflux disease without esophagitis; Translations: [GERD WITHOUT ESOPHAGITIS]Onset: 76-12-8138ZcjhqmuQpzznpfna hypertension (20 sources)Essential (primary) hypertension; Translations: [Hypertensive disorder]Onset: 484346-94-5614ZnfnpooMvlolipf; including migraine (20 sources)Migraine; Translations: [Migraine, unspecified, not intractable, without status migrainosus]Onset: 834042-87-1079BwjoevpNcuqfxpgbom of prostate (1 source)Benign prostatic hypertrophy without outflow obstruction; Translations: [Benign prostatic hyperplasia without lower urinary tract symptoms]Onset: 78-99-3333ZzereyhAkoeilwxzbra with complications and secondary hypertension (15 sources)Hypertensive heart failure; Translations: [Hypertensive heart disease with heart failure]Onset: 365269-93-6596XjxqvggNwqzmakougohh mental health disorders (20 sources)Primary insomnia; Translations: [Primary insomnia]Onset: 03-11-2023 71-44-8802XuvcuoqBxed disorders (1 source)Major depressive disorder, single episode, unspecified; Translations: [AMRITZA DEPRESS D/O SINGLE EPIS UNS]Onset: 06-20-9290NbnyyywGkrx disorders (1 source)Mood disorders; Translations: [DEPRESSION UNSPECIFIED]Onset: 24-83-0348Oxkgsr and vomiting (1 source)Projectile vomiting; Translations: [Projectile vomiting]11-14-2024 EpisodicOsteoarthritis (20 sources)Unspecified osteoarthritis, unspecified site; Translations: [Arthritis of right acromioclavicular joint]Onset: hronic Other aftercare (1 source)assisted (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; Translations: [COUPLER 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 ASPIRIN]Onset: 05-49-1627JoeoipemIhfjs aftercare (1 source)Other meterman (current) drug therapy; Translations: [OTH COUPLER CURRENT DRUG THERAPY]Onset: 28-71-8541JfimixcjNhesh bone disease and musculoskeletal deformities (3 sources)Hypertrophy of bone; Translations: [Hypertrophy of bone, unspecified tibia and fibula]93-04-4797ZntvpeukQbvwv bone disease and musculoskeletal deformities (1 source)Hypertrophy of bone, unspecified tibia and fibula; Translations: [Hypertrophy of bone, unspecified tibia and fibula]Onset: 05-25-6608Hxvyeglm Other connective tissue disease (3 sources)Pain in right forearm; Translations: [PAIN IN RIGHT FOREARM]Onset: 21-38-5612LkpyvuleHxwtm connective tissue disease (1 source)Arthrodesis status; Translations: [ARTHRODESIS STATUS]Onset: 31-57-0873OwsereakHprgz connective tissue disease (2 sources)Muscle weakness of upper limb; Translations: [Other symptoms and signs involving the musculoskeletal system]41-64-3104CdpzqaggKflrany on above: Problem List clean-up per request of Phys. EHR CmteOther connective tissue disease (3 sources)Pain in right lower limb; Translations: [Pain in right leg]05-07-2025 EpisodicOther diseases of veins and lymphatics (1 source)Varicocele; Translations: [Scrotal varices]Onset: 13-43-1549Iosucxyy Other ear and sense organ disorders (1 source)Unspecified hearing loss, unspecified ear; Translations: [UNS HEARING LOSS UNSPECIFIED EAR]Onset: 97-25-8198TshmcyxHgrhf endocrine disorders (4 sources)Testicular hypofunction; Translations: [TESTICULAR HYPOFUNCTION] Onset: 63-19-2507RedvkcaSozrh inflammatory condition of skin (1 source)Psoriasis, unspecified; Translations: [PSORIASIS UNSPECIFIED]Onset: 00-35-1592FiecacgHyryd injuries and conditions due to external causes (1 source)Unspecified injury of head, initial encounter; Translations: [UNSPECIFIED INJURY HEAD INITIAL ENC]Onset: 37-94-2800BuzqljanPrlaq male genital disorders (20 sources)Secondary erectile dysfunction; Translations: [Male erectile dysfunction, unspecified]Onset: 336088-87-5853UtmwhlpBynfi male genital disorders (1 source)Hydrocele of testis; Translations: [Hydrocele, unspecified]Onset: 49-19-1940PxkayntbXyemr nervous system disorders (1 source)Narcolepsy without cataplexy; Translations: [NARCOLEPSY WITHOUT CATAPLEXY]Onset: 51-04-3955MrdztuzQhytx nervous system disorders (1 source)Other chronic pain; Translations: [OTHER CHRONIC PAIN]Onset: 65-29-7377LsfkyttNhhib nervous system disorders (1 source)Polyneuropathy, unspecified; Translations: [POLYNEUROPATHY UNSPECIFIED]Onset: 54-66-7721NqdeqbtQqlzx nervous system disorders (20 sources)Carpal tunnel syndrome of right wrist; Translations: [Carpal tunnel syndrome, right upper limb]Onset: 787343-06-5646YrcepbqIfwyh nervous system disorders (20 sources)Lesion of ulnar nerve, right upper limb; Translations: [Lesion of ulnar nerve]Onset: 864328-83-9076PtxvdmsTkprz nervous system disorders (20 sources)Chronic pain; Translations: [Other chronic pain]Onset: 12-30-2017 31-03-9630DguyawyVevuo nervous system disorders (20 sources)Ulnar nerve entrapment; Translations: [Lesion of ulnar nerve, unspecified upper limb]Onset: 211942-41-2301QxxgthfCeled nervous system disorders (20 sources)Cataplexy and narcolepsy; Translations: [Narcolepsy with cataplexy] Onset: 437796-03-6823IplngqjGgydl nutritional; endocrine; and metabolic disorders (15 sources)Obesity; Translations: [Obesity, unspecified]Onset: 09-24-2024 05-73-9678OwzxlftWqmz-; endo-; and myocarditis; cardiomyopathy (except that caused by tuberculosis or sexually transmitted disease) (15 sources)Cardiomyopathy; Translations: [Other cardiomyopathies]Onset: 386106-73-9584KfvqcdvXdnryhdj codes; unclassified (1 source)Sleep apnea, unspecified; Translations: [SLEEP APNEA UNSPECIFIED] Onset: 68-06-4736NiwykwnBssbtqjs codes; unclassified (20 sources)Daytime somnolence; Translations: [Other hypersomnia]Onset: 976718-56-2167SurxzqdEmgesemf codes; unclassified (20 sources)Obstructive sleep apnea syndrome; Translations: [Obstructive sleep apnea (adult) (pediatric)]Onset: 920036-97-9132JkrcbuzSuwqurtb codes; unclassified (2 sources)Obstructive sleep apnea (adult) (pediatric); Translations: [Obstructive sleep apnea (adult) (pediatric)]Onset: 19-44-3410XfcmtfjVwfvhcij codes; unclassified (5 sources)Other hypersomnia; Translations: [Hypersomnia, unspecified]Onset: 197887-10-3797NvhimgmOyavssvtxnd; intervertebral disc disorders; other back problems (20 sources)Cervical disc disorder; Translations: [Cervical disc disorder, unspecified, unspecified cervical region]Onset: hronic Superficial injury; contusion (2 sources)Contusion of right forearm, initial encounter; Translations: [Contusion of other part of head, initial encounter]Onset: 23-31-3386Yuqttqfu Unclassified (1 source)CONTACT W/AND (SUSP) EXPOS COVID-19; Translations: [CONTACT W/AND (SUSP) EXPOS COVID-19]Onset: 01-19-2022 Past or Other Problems Problem ClassificationProblemDateDocumented DateEpisodic/ChronicComa; stupor; and brain damage (20 sources)Clouded consciousness; Translations: [Stupor]Onset: 03-03-2012 83-33-6136IhmlywhqW Codes: Fall (18 sources)Unspecified fall, initial encounter; Translations: [Fall in home] Onset: 78-73-5506XbrcairoH Codes: Natural/environment (1 source)Exposure to other specified factors, initial encounter; Translations: [EXPOSURE OTHER SPEC FACTORS INITIAL]Onset: 38-44-5920ZcbbdczbLndeqapm of lower limb (20 sources)Unspecified fracture of shaft of right tibia, initial encounter for closed fracture; Translations: [Unspecified fracture of shaft of right fibula, initial encounter for closed fracture]Onset: 12-94-5651ZyyhoedjLyiumveah and duodenitis (20 sources)Gastritis; Translations: [Gastritis, unspecified, without bleeding] Onset: 727637-93-2901XghzommbDrqfp valve disorders (20 sources)Systolic murmur; Translations: [Cardiac murmur, unspecified]Onset: 591189-18-1272PnyejzzoOqqyuckvkvimz and screening for infectious disease (1 source)Encounter for immunization; Translations: [ENCOUNTER FOR IMMUNIZATION] Onset: 90-51-5937JpvuzzazOvqehrcihktw conditions of male genital organs (4 sources)Inflammatory disorders of scrotum; Translations: [INFLAMMATORY DISORDERS OF SCROTUM]Onset: 45-05-7149BfrzykwjFjpoetq and fatigue (20 sources)Fatigue; Translations: [Other fatigue]Onset: EpisodicNoninfectious gastroenteritis (20 sources)Gastroenteritis; Translations: [Noninfective gastroenteritis and colitis, unspecified]Onset: 632848-68-1216SnnebmlaBaijtiaddjp chest pain (20 sources)Chest discomfort; Translations: [Other chest pain]Onset: 11-30-2011 59-43-3361TwqlsaojDimk wounds of extremities (19 sources)Puncture wound without foreign body, left foot, initial encounter; Translations: [Open wound of left great toe]Onset: 25-32-8572ZrfbuzubLyxiu circulatory disease (20 sources)Capillary hemangioma; Translations: [Nevus, non-neoplastic]Onset: 098168-52-8494ZwrjyxhjCiyug connective tissue disease (20 sources)Spasm of cervical paraspinous muscle; Translations: [Other muscle spasm]Onset: 013692-81-0994JuoodfkiNsafi connective tissue disease (20 sources)Bursitis; Translations: [Bursopathy, unspecified]Onset: 02-27-2011 07-27-9393ZcrbmzkeAokuz connective tissue disease (20 sources)Foot pain; Translations: [Pain in unspecified foot]Onset: 10-07-2012 42-42-0714LuyprqljOfkwz connective tissue disease (20 sources)Muscle pain; Translations: [Myalgia, unspecified site]Onset: 047006-17-3796DflbmgngMrkyx connective tissue disease (20 sources)Impingement syndrome of shoulder region; Translations: [Impingement syndrome of unspecified shoulder]Onset: 952230-81-9631XwuoknalQxtoq connective tissue disease (20 sources)Lateral epicondylitis; Translations: [Lateral epicondylitis, unspecified elbow]Onset: 904063-20-2418BhxwvlkcCpbzg connective tissue disease (20 sources)Other symptoms and signs involving the musculoskeletal system; Translations: [Other musculoskeletalsymptoms referable to limbs]Onset: 430338-03-6091PhikzhckUrxpevi on above:Problem List clean-up per request of Phys. EHR CmteOther lower respiratory disease (20 sources)Dyspnea; Translations: [Dyspnea, unspecified]Onset: 11-30-2011 15-45-7733CihocokqTjgct nervous system disorders (20 sources)Numbness of upper limb; Translations: [Anesthesia of skin]Onset: 614305-55-2772GwbyyiuvEirfubf on above:Problem List clean-up per request of Phys. EHR CmteOther non-traumatic joint disorders (20 sources)Ankle edema; Translations: [Effusion, unspecified ankle]Onset: 152003-83-7647OaxywdfwIsqqe non-traumatic joint disorders (20 sources)Joint pain; Translations: [Pain in unspecified joint]Onset: 571436-19-1954AskhvzcqVngwy screening for suspected conditions (not mental disorders or infectious disease) (20 sources)Encounter for screening for malignant neoplasm of prostate; Translations: [Elevated prostate specific antigen [PSA]]Onset: 03-13-2022 EpisodicOther skin disorders (20 sources)Excessive sweating; Translations: [Generalized hyperhidrosis]Onset: 855900-19-9664AeiashmcLjplv skin disorders (20 sources)Senile hyperkeratosis; Translations: [Actinic keratosis]Onset: 074009-37-6443RavxwwohJhprw skin disorders (20 sources)Hyperhidrosis; Translations: [Generalized hyperhidrosis]Onset: [id number] upper respiratory infections (20 sources)Upper respiratory infection; Translations: [Acute upper respiratory infection, unspecified]Onset: 239301-64-6769MzrpzgpyFkox and subcutaneous tissue infections (20 sources)Cellulitis; Translations: [Cellulitis, unspecified]Onset: 03-31-2013 01-47-8835UkoxcxtiFomeyfchafq; intervertebral disc disorders; other back problems (20 sources)Cervical disc prolapse with radiculopathy; Translations: [Cervical disc disorder with radiculopathy, unspecified cervical region]Onset: 10-11-2018 88-96-3673QrnhwkjbDljzgnq on above:Problem List clean-up per request of Phys. EHR CmteUrinary tract infections (20 sources)Urinary tract infectious disease; Translations: [Urinary tract infection, site not specified]Onset: 207838-31-2059Htkznfcn Results Test NameValueInterpretationReference RangeFacilityCT lower leg RT wo pool 63-36-5635MI lower leg RT wo [facility] [place] [address] CT Scan Report Signed Patient: Matty Garces MR#: [id number] : 1970 Acct:[id number] Age/Sex: 54 / M ADM Date: 05/29/25 Loc: CT Room: Type: [facility] CLI Attending Dr: Jameel Coats DO Copies [...] Irving M.D. 05/29/2025 11:40 PM Dictation Location: [place] [address] Transcribed By: [facility] 05/29/25 2340 Dictated By: Francis Irving II, MD 05/29/25 5345 Signed By: 05/29/25 2340[facility] GroupEC[facility] 12-LEADon [id number] [address] Electrocardiograph Report Signed Patient: MATTY GARCES MR#: [id number] : 1970 Acct:[id number] Age/Sex: 54 / M ADM Date: 03/05/25 Loc: [place] 221-[address]: Venus Jaeger M.D. 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 Measurements Intervals [place] Rate: 76 P: 60 AK: 178 QRS: 69 QRSD: 100 T: 46 QT: 406 QTc: 437 Interpretive Statements 1100 Sinus rhythm 0102 ARTIFACT PRESENT 9110 normal ECG Compared to ECG 09/23/2024 05:51:07 No significant changes Electronically Signed On 03-06-2025 9:29:34 EDT by RAMIRO WALLS M.D. Dictated By: RAMIRO WALLS Signed By: 03/06/2529 DD/ 06 TD/TT: Operational Intelligence Officer:TBHRadiology, Radiologist, - 03/06/[address] [address] Electrocardiograph Report Signed Patient: MATTY GARCES MR#: [id number] : 1970 Acct:[id number] Age/Sex: 54 / M ADM Date: 03/05/25 Loc: [place] 221-[address]: Venus Jaeger M.D. Ordering Physician: Jess Castañeda Date of Service: 03/05/25 Procedure(s): ECG 12 lead Accession Number(s): [id number] cc: [facility] Test Date: 2025-03-05 Pat Name: MATTY GARCES Department: Room: - Gender: Male Production Superintendent: : 1970 Requested By: 0923 Order Number: [id number] Reading MD: RAMIRO WALLS M.D. Measurements Intervals [place] Rate: 76 P: 60 AK: 178 QRS: 69 QRSD: 100 T: 46 QT: 406 QTc: 437 Interpretive Statements 1100 Sinus rhythm 0102 ARTIFACT PRESENT 9110 normal ECG Compared to ECG 09/23/2024 05:51:07 No significant changes Electronically Signed On 03-06-2025 9:29:34 EDT by RAMIRO WALLS M.D. Dictated By: RAMIRO WALLS Signed By: 03/06/25928 DD/ 06 TD/TT: Operational Intelligence Officer: JEWELS Packer 12-LEADOrdered By: Radiologist Radiology on 40-53-6788[facility] Work Phone: ECG 12-LEADon 76-46-7665Sgxkeweca Study observation (narrative)JEWELS LandryBASIC METABOLIC PANELon 38-23-6186Tdqlm gap [Moles/Vol]8 mmol/LNormal7-20UnCleveland Clinic Mercy HospitalComment on above:Performed By: #### [id number] #### [facility] ([facility]) [address] [place], [place] [address]Jdrctgt [Mass/Vol]9.7 mg/dLNormal8.6-10.3UnCleveland Clinic Mercy HospitalComment on above:Performed By: #### [id number] #### [facility] ([facility]) [address] [place], [place] [address]Bkwjmsec [Moles/Vol]97 mmol/SGyd66-327EyyxyymkwmCleveland Clinic Mercy HospitalComment on above:Performed By: #### [id number] #### [facility] ([facility]) [address] [place] [address]QW9 [Moles/Vol]35 mmol/EXahq63-55TfqjmkozbcCleveland Clinic Mercy HospitalComment on above:Performed By: #### [id number] #### [facility] ([facility]) [address] [place] [address]Ifygwwbfik [Mass/Vol]1.02 mg/dLNormal0.70-1.30UnCleveland Clinic Mercy HospitalComment on above:Performed By: #### [id number] #### [facility] ([facility]) [address] [place] [address]KWNPTZCOSN FILTRATION RATE ML/MIN/1.73 SQ M.TNIHEXWFC83.8 mL/min/1.73m*2Normal>60.0UnCleveland Clinic Mercy HospitalComment on above: Result Comment: [facility]???s estimated glomerular filtration rate (eGFR) [...] affect anyone group of individuals.Performed By: #### [id number] #### [facility] ([facility]) [address] [place] [address]Bllcpox [Mass/Vol]80 mg/rUVnckvm58-192GlldoxaqrqCleveland Clinic Mercy HospitalComment on above:Performed By: #### [id number] #### [facility] ([facility]) [address] [place] [address]Wozqnhwxa [Moles/Vol]4.2 mmol/LNormal3.5-5.1UnCleveland Clinic Mercy HospitalComment on above:Performed By: #### [id number] #### [facility] ([facility]) [address] [place] [address]Rjdtib [Moles/Vol]136 mmol/ZCanxbb747-933HbvdbpgqwrCleveland Clinic Mercy HospitalComment on above:Performed By: #### [id number] #### [facility] ([facility]) [address] [place] [place] [address]Nvbz nitrogen [Mass/Vol]8 mg/dLNormal7-25UnCleveland Clinic Mercy HospitalComment on above:Performed By: #### [id number] #### [facility] ([facility]) [address] [place], [place] [address]CQVG NITROGEN/CREATININE (MASS RATIO) IN SER/PLAS7.8Normal [facility] CenterComment on above:Performed By: #### [id number] #### [facility] ([facility]) [address] [place], [place] [address]HWS WITH AUTO DIFFERENTIALon 23-05-5837Monwlredd (Bld) [#/Vol] 0.06 10*3/uLNormal0.00-0.20UnCleveland Clinic Mercy HospitalComment on above: Performed By: #### [id number] ####[facility] ([facility])[address] [place], [place] [address]Lwpqigmeb/100 WBC (Bld)0.9 %Normal0.0-1.0UnCleveland Clinic Mercy HospitalComment on above:Performed By: #### [id number] ####[facility] ([facility])[address] [place], [place] [address]Wgwwotptrqm (Bld) [#/Vol]0.21 10*3/uL Normal0.00-0.50UnCleveland Clinic Mercy HospitalComment on above:Performed By: #### [id number] ####[facility] ([facility])[address] [place] [address] Eosinophils/100 WBC (Bld)3.0 %Normal0.0-6.0UnCleveland Clinic Mercy Hospital Comment on above:Performed By: #### [id number] ####[facility] ([facility])[address] [place], [place] [address]Htyqesovbks distribution width (RBC) [Ratio]16.7 % High11.5-15.0UnCleveland Clinic Mercy HospitalComment on above:Performed By: #### [id number] ####[facility] ([facility])[address] [place] [address] ERYTHROCYTE MEAN CORPUSCULAR HEMOGLOBIN CONCENTRATION (G/DL) BY KMQEBGCFN07.9 g/dLLow32.0-35.0UnCleveland Clinic Mercy HospitalComment on above:Performed By: #### [id number] ####[facility] ([facility])[address] [place], [place] [address]Wreawprdqo (Bld) [Volume fraction]44.5 %Ungjgt82.0-55.0UnCleveland Clinic Mercy HospitalComment on above:Performed By: #### [id number] ####[facility] ([facility])[address] [place], [place] [address]Ybuuqhikus (Bld) [Mass/Vol]13.3 g/dL Yojkep43.0-17.0UnCleveland Clinic Mercy HospitalComment on above:Performed By: #### [id number] ####[facility] ([facility])[address] [place] [address] Immature granulocytes (Bld) [#/Vol]0.11 10*3/uLNormal0.00-0.20UnCleveland Clinic Mercy HospitalComment on above:Performed By: #### [id number] ####[facility] ([facility])[address] [place], [place] [address]Qiayfijb granulocytes/100 WBC (Bld)1.6 %High0.0-1.0UnCleveland Clinic Mercy HospitalComment on above: Performed By: #### [id number] ####[facility] ([facility])[address] [place], [place] [address]Eqcqljlxkcb (Bld) [#/Vol]0.91 10*3/uLLow1.20-4.00UnCleveland Clinic Mercy HospitalComment on above:Performed By: #### [id number] ####[facility] ([facility])[address] [place], [place] [address]Fntrpjiqsoy/100 WBC (Bld) 12.9 %Low20.0-45.0UnCleveland Clinic Mercy HospitalComment on above:Performed By: #### [id number] ####[facility] ([facility])[address] [place], [place] [address]ZDJ (RBC) [Entitic mass]26.9 pgLow27.0-33.0UnCleveland Clinic Mercy HospitalComment on above:Performed By: #### [id number] ####[facility] ([facility])[address] [place], [place] [address]TFY (RBC) [Entitic vol]89.9 fLNormal 82.0-98.0UnCleveland Clinic Mercy HospitalComment on above:Performed By: #### [id number] ####[facility] ([facility])[address] [place] [address] Monocytes (Bld) [#/Vol]0.65 10*3/uLNormal0.10-1.00UnCleveland Clinic Mercy HospitalComment on above:Performed By: #### [id number] ####[facility] ([facility])[address] [place], [place] [address]Idufuhixm/100 WBC (Bld)9.2 %Normal 5.0-12.0UnCleveland Clinic Mercy HospitalComment on above:Performed By: #### [id number] ####[facility] ([facility])[address] [place] [address] Neutrophils (Bld) [#/Vol]5.11 10*3/uLNormal1.60-7.60UnCleveland Clinic Mercy HospitalComment on above:Performed By: #### [id number] ####[facility] ([facility])[address] [place], [place] [address]Bwbewpdfjqn/100 WBC (Bld)72.4 %High 40.0-72.0UnCleveland Clinic Mercy HospitalComment on above:Performed By: #### [id number] ####[facility] ([facility])[address] [place] [address]BQIC (PER 100 WBCS) BY AUTOMATED COUNT0.0 %Laezdq8KsqxvgxaurCleveland Clinic Mercy Hospital Comment on above:Performed By: #### [id number] ####[facility] ([facility])[address] [place] [address]SDJLIQSHI (10*3/UL) IN BLOOD AUTOMATED [id number] 10*3/pPQiexjo775-278YdbjplecekCleveland Clinic Mercy HospitalComment on above: Performed By: #### [id number] ####[facility] ([facility])[address] [place], [place] [address]ITZ (Bld) [#/Vol]4.95 10*6/uLNormal4.20-5.70UnCleveland Clinic Mercy HospitalComment on above:Performed By: #### [id number] ####[facility] ([facility])[address] [place] [address]LVR (Bld) [#/Vol]7.05 10*3/uLNormal4.00-10.60UnCleveland Clinic Mercy HospitalComment on above: Performed By: #### [id number] ####[facility] ([facility])[address] [place], [place] [address]KBGWD METABOLIC PANELon 68-28-4884Wdyhb gap [Moles/Vol]9 mmol/LNormal7-20UnCleveland Clinic Mercy HospitalComment on above:Performed By: #### [id number] #### [facility] ([facility]) [address] [place], [place] [address]Ffhqlob [Mass/Vol]9.5 mg/dLNormal8.6-10.3UnCleveland Clinic Mercy HospitalComment on above:Performed By: #### [id number] #### [facility] ([facility]) [address] [place], [place] [address]Wnzkdgxf [Moles/Vol]96 mmol/HGew17-806YzqnbcavnyCleveland Clinic Mercy HospitalComment on above:Performed By: #### [id number] #### [facility] ([facility]) [address] [place] [address]II6 [Moles/Vol]34 mmol/QQryf33-72SsrbcsmxgoCleveland Clinic Mercy HospitalComment on above:Performed By: #### [id number] #### [facility] ([facility]) [address] [place] [address]Izenaoygtw [Mass/Vol]0.93 mg/dLNormal0.70-1.30UnCleveland Clinic Mercy HospitalComment on above:Performed By: #### [id number] #### [facility] ([facility]) [address] [place] [address]MFJDRLQUIB FILTRATION RATE ML/MIN/1.73 SQ M.WUDPGBEOF54.0 mL/min/1.73m*2Normal>60.0UnCleveland Clinic Mercy HospitalComment on above: Result Comment: [facility]???s estimated glomerular filtration rate (eGFR) [...] affect anyone group of individuals.Performed By: #### [id number] #### [facility] ([facility]) [address] [place] [address]Nyrkspb [Mass/Vol]85 mg/sVEzyhkr89-007MaldxozramCleveland Clinic Mercy HospitalComment on above:Performed By: #### [id number] #### [facility] ([facility]) [address] [place] [address]Cprtlwyps [Moles/Vol]4.0 mmol/LNormal3.5-5.1UnCleveland Clinic Mercy HospitalComment on above:Performed By: #### [id number] #### [facility] ([facility]) [address] [place] [address]Lvjyav [Moles/Vol]135 mmol/FGdw128-398DzcslaxfedCleveland Clinic Mercy HospitalComment on above:Performed By: #### [id number] #### [facility] ([facility]) [address] [place], [place] [address]Qxpc nitrogen [Mass/Vol]8 mg/dLNormal7-25UnCleveland Clinic Mercy HospitalComment on above:Performed By: #### [id number] #### [facility] ([facility]) [address] [place], [place] [address]AZRU NITROGEN/CREATININE (MASS RATIO) IN SER/PLAS8.6Normal [facility] CenterComment on above:Performed By: #### [id number] #### [facility] ([facility]) [address], [place] [address]M-FBUDPWTE PROTEINon 5C REACTIVE PROTEIN (MG/L) IN SER/PLAS11.5 mg/LHigh<=5.0UnCleveland Clinic Mercy HospitalComment on above: Result Comment: Testing performed using a new methodology, turbidimetry. Normal ranges have been updated. Old normal range was <8 mg/L.Performed By: #### [id number] #### [facility] ([facility]) [address] [place], [place] [address]UPP WITH AUTO DIFFERENTIALon 42-71-9642Ytkckhpyk (Bld) [#/Vol] 0.08 10*3/uLNormal0.00-0.20UnCleveland Clinic Mercy HospitalComment on above: Performed By: #### [id number] ####[facility] ([facility])[address] [place], [place] [address]Tremqiyph/100 WBC (Bld)1.1 %High0.0-1.0UnCleveland Clinic Mercy HospitalComment on above:Performed By: #### [id number] ####[facility] ([facility])[address] [place], [place] [address]Ozffokjmskt (Bld) [#/Vol]0.19 10*3/uL Normal0.00-0.50UnCleveland Clinic Mercy HospitalComment on above:Performed By: #### [id number] ####[facility] ([facility])[address] [place] [address] Eosinophils/100 WBC (Bld)2.7 %Normal0.0-6.0[facility] Comment on above:Performed By: #### [id number] ####[facility] ([facility])[address] [place], [place] [address]Abynnrfefyx distribution width (RBC) [Ratio]16.6 % High11.5-15.0UnCleveland Clinic Mercy HospitalComment on above:Performed By: #### [id number] ####[facility] ([facility])[address] [place] [address] ERYTHROCYTE MEAN CORPUSCULAR HEMOGLOBIN CONCENTRATION (G/DL) BY YFVJKJQCH52.1 g/dLLow32.0-35.0UnCleveland Clinic Mercy HospitalComment on above:Performed By: #### [id number] ####[facility] ([facility])[address] [place], [place] [address]Vbnwwjeyup (Bld) [Volume fraction]44.5 %Hmjkug89.0-55.0UnCleveland Clinic Mercy HospitalComment on above:Performed By: #### [id number] ####[facility] (BE[facility])[address] [place], [place] [address]Aqlpjzxppo (Bld) [Mass/Vol]13.4 g/dL Lsyldq76.0-17.0UnCleveland Clinic Mercy HospitalComment on above:Performed By: #### [id number] ####[facility] ([facility])[address] [place] [address] Immature granulocytes (Bld) [#/Vol]0.10 10*3/uLNormal0.00-0.20UnCleveland Clinic Mercy HospitalComment on above:Performed By: #### [id number] ####[facility] ([facility])[address] [place], [place] [address]Igpdbrhi granulocytes/100 WBC (Bld)1.4 %High0.0-1.0UnCleveland Clinic Mercy HospitalComment on above: Performed By: #### [id number] ####[facility] ([facility])[address] [place], [place] [address]Uudrygjboxo (Bld) [#/Vol]0.90 10*3/uLLow1.20-4.00UnCleveland Clinic Mercy HospitalComment on above:Performed By: #### [id number] ####[facility] ([facility])[address] [place], [place] [address]Iehvlckwfiw/100 WBC (Bld) 12.8 %Low20.0-45.0UnCleveland Clinic Mercy HospitalComment on above:Performed By: #### [id number] ####[facility] ([facility])[address] [place], [place] [address]ODI (RBC) [Entitic mass]26.9 pgLow27.0-33.0UnCleveland Clinic Mercy HospitalComment on above:Performed By: #### [id number] ####[facility] ([facility])[address] [place], [place] [address]ZER (RBC) [Entitic vol]89.4 fLNormal 82.0-98.0UnCleveland Clinic Mercy HospitalComment on above:Performed By: #### [id number] ####[facility] ([facility])[address] [place] [address] Monocytes (Bld) [#/Vol]0.60 10*3/uLNormal0.10-1.00UnCleveland Clinic Mercy HospitalComment on above:Performed By: #### [id number] ####[facility] ([facility])[address] [facility] [place], [place] [address]Wxcbyszip/100 WBC (Bld)8.5 %Normal 5.0-12.0UnCleveland Clinic Mercy HospitalComment on above:Performed By: #### [id number] ####[facility] ([facility])[address] [place] [address] Neutrophils (Bld) [#/Vol]5.17 10*3/uLNormal1.60-7.60UnCleveland Clinic Mercy HospitalComment on above:Performed By: #### [id number] ####[facility] ([facility])[address] [place] [address]Efhfjpnqugv/100 WBC (Bld)73.5 %High 40.0-72.0UnCleveland Clinic Mercy HospitalComment on above:Performed By: #### [id number] ####[facility] ([facility])[address] [place] [address]ZMEI (PER 100 WBCS) BY AUTOMATED COUNT0.0 %Iafjbl2ScmwovnolcCleveland Clinic Mercy Hospital Comment on above:Performed By: #### [id number] ####[facility] ([facility])[address] [place] [address]BXFNBROAL (10*3/UL) IN BLOOD AUTOMATED BZHFK066 10*3/hWTiryjh837-544CtecggldbpCleveland Clinic Mercy HospitalComment on above: Performed By: #### [id number] ####[facility] ([facility])[address] [place] [address]IAH (Bld) [#/Vol]4.98 10*6/uLNormal4.20-5.70UnCleveland Clinic Mercy HospitalComment on above:Performed By: #### [id number] ####[facility] ([facility])[address] [place] [address]JGT (Bld) [#/Vol]7.04 10*3/uLNormal4.00-10.60UnCleveland Clinic Mercy HospitalComment on above: Performed By: #### [id number] ####[facility] ([facility])[address] [place], [place] [address]MILTRMAVPHUMF RATEon 93-42-0771VTCMDWQHGYNQH RATE, NLUYTXPRSRZ46 mm/hrHigh<20UnCleveland Clinic Mercy HospitalComment on above: Performed By: #### [id number] #### [facility] ([facility]) [address] [place] [address]EQKGGKCWIR, PEAKon 02-47-6199WCAUMCCXYZ (UG/ML) IN SER/PLAS - PEAK23.0 ug/mQBxygri60.0-50.0UnCleveland Clinic Mercy HospitalComment on above:Performed By: #### [id number] #### [facility] ([facility]) [address] [place] [address]JGVHFQURHY, TROUGHon 26-08-6335GSSDLIEXUL (UG/ML) IN SER/PLAS - EHMKKJ11.2 ug/mLNormal5.0-20.0UnCleveland Clinic Mercy HospitalComment on above:Performed By: #### [id number] #### [facility] ([facility]) [address] [place] [address] 11-71-334913Nhetv with facility and patient was admitted back here at [place] yesterday. They will call back if they need any orders.NormalUnCleveland Clinic Mercy Hospital BASIC METABOLIC PANELon 18-30-3900Gjkpr gap [Moles/Vol]9 mmol/LNormal7-20 [facility] CenterComment on above:Performed By: #### [id number] ####[facility] ([facility])[address] [place], [place] [address]Phbbndh [Mass/Vol]9.4 mg/dLNormal8.6-10.3UnCleveland Clinic Mercy HospitalComment on above:Performed By: #### [id number] ####[facility] ([facility])[address] [place], [place] [address]Eluqknqb [Moles/Vol]96 mmol/JWmu90-426ZwvmpnenyyCleveland Clinic Mercy HospitalComment on above:Performed By: #### [id number] ####[facility] ([facility])[address] [place], [place] [address]EZ2 [Moles/Vol]36 mmol/WBilt90-89 [facility] CenterComment on above:Performed By: #### [id number] ####[facility] ([facility])[address] [place], [place] [address]Egabmzkmab [Mass/Vol]0.98 mg/dLNormal0.70-1.30UnCleveland Clinic Mercy HospitalComment on above:Performed By: #### [id number] ####[facility] ([facility])[address] [place] [address]HFVYDASPOI FILTRATION RATE ML/MIN/1.73 SQ M.DXUAWIVNM04.1 mL/min/1.73m*2Normal>60.0UnCleveland Clinic Mercy HospitalComment on above: Result Comment: [facility]???s estimated glomerular filtration rate (eGFR) [...] anyone group of individuals.Performed By: #### [id number] ####[facility] ([facility])[address] [place] [address]Mdppxwd [Mass/Vol]90 mg/wGGccjjw58-286DbahfkmdbfCleveland Clinic Mercy HospitalComment on above:Performed By: #### [id number] ####[facility] ([facility])[address] [place] [address]Vryleljgk [Moles/Vol]4.0 mmol/LNormal3.5-5.1UnCleveland Clinic Mercy HospitalComment on above:Performed By: #### [id number] ####[facility] ([facility])[address] [place] [address] Sodium [Moles/Vol]137 mmol/KKwiibk192-088KbigchvxeeCleveland Clinic Mercy Hospital Comment on above:Performed By: #### [id number] ####[facility] ([facility])[address] [place], [place] [address]Xdwm nitrogen [Mass/Vol]7 mg/dLNormal7-25UnCleveland Clinic Mercy HospitalComment on above:Performed By: #### [id number] ####[facility] ([facility])[address] [place], [place] [address]HBFE NITROGEN/CREATININE (MASS RATIO) IN SER/PLAS7.1NormalUnCleveland Clinic Mercy HospitalComment on above:Performed By: #### [id number] ####[facility] ([facility])[address] [place] [address]CAQgt 81-15-8601Trtffayqlfl distribution width (RBC) [Ratio] 16.2 %High11.5-15.0UnCleveland Clinic Mercy HospitalComment on above:Performed By: #### [id number] #### [facility] ([facility]) [address] [place] [address]STOKTAADHOH MEAN CORPUSCULAR HEMOGLOBIN CONCENTRATION (G/DL) BY NHKDGLQKB60.5 g/dLLow32.0-35.0UnCleveland Clinic Mercy HospitalComment on above:Performed By: #### [id number] #### [facility] ([facility]) [address] [place] [address]Niikgjhgjk (Bld) [Volume fraction]42.0 %Kxmuss03.0-55.0 [facility] CenterComment on above:Performed By: #### [id number] #### [facility] ([facility]) [address] [place] [address]Clzsybcgou (Bld) [Mass/Vol]12.8 g/dLLow13.0-17.0UnCleveland Clinic Mercy HospitalComment on above:Performed By: #### [id number] #### [facility] ([facility]) [address] [place] [address]AAW (RBC) [Entitic mass]26.9 pgLow27.0-33.0UnCleveland Clinic Mercy HospitalComment on above:Performed By: #### [id number] #### [facility] ([facility]) [address] [place] [address]DDQ (RBC) [Entitic vol]88.2 vVVfphnd30.0-98.0UnCleveland Clinic Mercy HospitalComment on above:Performed By: #### [id number] #### [facility] ([facility]) [address] [place] [address]ECOTGHSRN (10*3/UL) IN BLOOD AUTOMATED [id number] 10*3/uLNormal 150-400UnCleveland Clinic Mercy HospitalComment on above:Performed By: #### [id number] #### [facility] ([facility]) [address] [place] [address]CYT (Bld) [#/Vol]4.76 10*6/uLNormal4.20-5.70UnCleveland Clinic Mercy HospitalComment on above:Performed By: #### [id number] #### [facility] ([facility]) [address] [place] [address]FXK (Bld) [#/Vol]8.22 10*3/uLNormal4.00-10.60UnCleveland Clinic Mercy HospitalComment on above:Performed By: #### [id number] #### [facility] ([facility]) [address] [place] [address]XKCPLAYOTll 69-66-5898Ejtjureyz [Mass/Vol]2.0 mg/dLNormal1.9-2.7 [facility] CenterComment on above:Performed By: #### [id number] #### [facility] ([facility]) [address] [place], [place] [address]MDTVX CULTUREon 97-85-4631Dctqlbxp identified Cx Nom (Bld)No growth at 5 daysNormalUniversCorey HospitalComment on above: Performed By: #### [id number] ####[facility] ([facility])[address], [place] [address]Huxam Comment: From a different site than #1.Performed By: #### [id number] #### [facility] ([facility]) [address] [facility] [place], [place] [address]N-SPDJXHOV PROTEINon 10-08-2024 REACTIVE PROTEIN (MG/L) IN SER/PLAS26.6 mg/LHigh<=5.0UnCleveland Clinic Mercy HospitalComment on above: Result Comment: Testing performed using a new methodology, turbidimetry. Normal ranges have been updated. Old normal range was <8 mg/L.Performed By: #### [id number] ####[facility] ([facility])[address] [place] [address]WSV WITH AUTO DIFFERENTIALon 28-03-9271Bojmdfhsu (Bld) [#/Vol]0.06 10*3/uLNormal0.00-0.20 [facility] CenterComment on above:Performed By: #### [id number] #### [facility] ([facility]) [address] [place] [address]Lykhguicu/100 WBC (Bld)0.8 %Normal0.0-1.0UnCleveland Clinic Mercy HospitalComment on above:Performed By: #### [id number] #### [facility] ([facility]) [address] [place] [address]Weobmwgrrsa (Bld) [#/Vol]0.17 10*3/uLNormal0.00-0.50UnCleveland Clinic Mercy HospitalComment on above:Performed By: #### [id number] #### [facility] ([facility]) [address] [place], [place] [address]Nlohrfzigix/100 WBC (Bld)2.3 %Normal0.0-6.0UnCleveland Clinic Mercy HospitalComment on above:Performed By: #### [id number] #### [facility] ([facility]) [address] [place], [place] [address]Jltejxltsvx distribution width (RBC) [Ratio]16.0 %High11.5-15.0 [facility] CenterComment on above:Performed By: #### [id number] #### [facility] ([facility]) [address] [place], [place] [address]GXSTDMFBGXI MEAN CORPUSCULAR HEMOGLOBIN CONCENTRATION (G/DL) BY BUZIMEMUI34.3 g/dLLow32.0-35.0UnCleveland Clinic Mercy HospitalComment on above:Performed By: #### [id number] #### [facility] ([facility]) [address] [place], [place] [address]Yarfbqkuza (Bld) [Volume fraction]40.9 %Mrzqzc00.0-55.0 [facility] CenterComment on above:Performed By: #### [id number] #### [facility] ([facility]) [address] [facility] [place], [place] [address]Ieeyxtzmfa (Bld) [Mass/Vol]12.4 g/dLLow13.0-17.0UnCleveland Clinic Mercy HospitalComment on above:Performed By: #### [id number] #### [facility] ([facility]) [address] [place], [place] [address]Flopybjq granulocytes (Bld) [#/Vol]0.10 10*3/uLNormal0.00-0.20 [facility] CenterComment on above:Performed By: #### [id number] #### [facility] ([facility]) [address] [facility] [place], [place] [address]Wwpukoit granulocytes/100 WBC (Bld)1.4 %High0.0-1.0UnCleveland Clinic Mercy HospitalComment on above:Performed By: #### [id number] #### [facility] ([facility]) [address] [place], [place] [address]Zhaskrqekux (Bld) [#/Vol]0.73 10*3/uLLow1.20-4.00UnCleveland Clinic Mercy HospitalComment on above:Performed By: #### [id number] #### [facility] ([facility]) [address] [place], [place] [address]Pbojjwxjveu/100 WBC (Bld)10.0 %Low20.0-45.0UnCleveland Clinic Mercy HospitalComment on above:Performed By: #### [id number] #### [facility] ([facility]) [address] [place], [place] [address]ANS (RBC) [Entitic mass]26.7 pgLow27.0-33.0UnCleveland Clinic Mercy HospitalComment on above:Performed By: #### [id number] #### [facility] ([facility]) [address] [facility] [place], [place] [address]QOP (RBC) [Entitic vol]88.0 rOQiseim84.0-98.0UnCleveland Clinic Mercy HospitalComment on above:Performed By: #### [id number] #### [facility] ([facility]) [address] [place] [address]Casaufqej (Bld) [#/Vol]0.52 10*3/uLNormal0.10-1.00UnCleveland Clinic Mercy HospitalComment on above:Performed By: #### [id number] #### [facility] ([facility]) [address] [place] [address]Sqojgutdw/100 WBC (Bld)7.1 %Normal5.0-12.0UnCleveland Clinic Mercy HospitalComment on above:Performed By: #### [id number] #### [facility] ([facility]) [address] [place] [address]Jwbvpohkchk (Bld) [#/Vol]5.73 10*3/uLNormal1.60-7.60UnCleveland Clinic Mercy HospitalComment on above:Performed By: #### [id number] #### [facility] ([facility]) [address] [place] [address]Vgqjzmqucwv/100 WBC (Bld)78.4 %High40.0-72.0UnCleveland Clinic Mercy HospitalComment on above:Performed By: #### [id number] #### [facility] ([facility]) [address] [place] [address]PZFI (PER 100 WBCS) BY AUTOMATED COUNT0.0 %Ytbyma0MnxdvyugtyCleveland Clinic Mercy HospitalComment on above:Performed By: #### [id number] #### [facility] ([facility]) [address] [place] [address]KENLYLROL (10*3/UL) IN BLOOD AUTOMATED [id number] 10*3/uLNormal 150-400UnCleveland Clinic Mercy HospitalComment on above:Performed By: #### [id number] #### [facility] ([facility]) [address] [place] [address]EEC (Bld) [#/Vol]4.65 10*6/uLNormal4.20-5.70UnCleveland Clinic Mercy HospitalComment on above:Performed By: #### [id number] #### [facility] ([facility]) [address] [place] [address]EWF (Bld) [#/Vol]7.31 10*3/uLNormal4.00-10.60UnCleveland Clinic Mercy HospitalComment on above:Performed By: #### [id number] #### [facility] ([facility]) [address] [address]YMFESDQFNRDWS METABOLIC PANELon 40-56-2273Aolvrhc [Mass/Vol]3.7 g/dLNormal3.5-5.7UnCleveland Clinic Mercy HospitalComment on above:Performed By: #### [id number] #### [facility] ([facility]) [address] [place] [address]JEH [Catalytic activity/Vol]130 U/WKgjn25-301LakjirncwyCleveland Clinic Mercy HospitalComment on above:Performed By: #### [id number] #### [facility] ([facility]) [address] [place] [address]IZJ [Catalytic activity/Vol]14 U/LNormal7-52UnCleveland Clinic Mercy HospitalComment on above:Performed By: #### [id number] #### [facility] ([facility]) [address] [place] [address]Gdpxz gap [Moles/Vol]9 mmol/LNormal7-20UnCleveland Clinic Mercy HospitalComment on above:Performed By: #### [id number] #### [facility] ([facility]) [address] [place] [address]MDF [Catalytic activity/Vol]19 U/YYbyvzq01-86MwwdftoarmCleveland Clinic Mercy HospitalComment on above:Performed By: #### [id number] #### [facility] ([facility]) [address] [place] [address]Aiufcyxqv [Mass/Vol]0.7 mg/dLNormal0.3-1.0UnCleveland Clinic Mercy HospitalComment on above:Performed By: #### [id number] #### [facility] ([facility]) [address] [place], [place] [address]Dvrduij [Mass/Vol]9.5 mg/dLNormal8.6-10.3UnCleveland Clinic Mercy HospitalComment on above:Performed By: #### [id number] #### [facility] ([facility]) [address] [place], [place] [address]Sbvkgpft [Moles/Vol]99 mmol/NFtlriw89-401QesqlslkgwCleveland Clinic Mercy HospitalComment on above:Performed By: #### [id number] #### [facility] ([facility]) [address] [place], [place] [address]DA4 [Moles/Vol]37 mmol/OPxbo40-50LzfyiougcwCleveland Clinic Mercy HospitalComment on above:Performed By: #### [id number] #### [facility] ([facility]) [address] [place], [place] [address]Tgzgygduhl [Mass/Vol]0.96 mg/dLNormal0.70-1.30UnCleveland Clinic Mercy HospitalComment on above:Performed By: #### [id number] #### [facility] ([facility]) [address] [place], [place] [address]KOJZPDOPRV FILTRATION RATE ML/MIN/1.73 SQ M.BTHUZRKOR28.3 mL/min/1.73m*2Normal>60.0UnCleveland Clinic Mercy HospitalComment on above: Result Comment: [facility]???s estimated glomerular filtration rate (eGFR) [...] affect anyone group of individuals.Performed By: #### [id number] #### [facility] ([facility]) [address] [place], [place] [address]Wtsmnzk [Mass/Vol]83 mg/aIMfgsox34-986NeiobaddwbCleveland Clinic Mercy HospitalComment on above:Performed By: #### [id number] #### [facility] ([facility]) [address] [place] [address]Jygmtmgve [Moles/Vol]4.2 mmol/LNormal3.5-5.1UnCleveland Clinic Mercy HospitalComment on above:Performed By: #### [id number] #### [facility] ([facility]) [address] [place] [address]Fujzirm [Mass/Vol]7.1 g/dLNormal6.0-8.3UnCleveland Clinic Mercy HospitalComment on above:Performed By: #### [id number] #### [facility] ([facility]) [address] [place] [address]Hvvygw [Moles/Vol]141 mmol/GFvjkpx648-932XxlhobdysvCleveland Clinic Mercy HospitalComment on above:Performed By: #### [id number] #### [facility] ([facility]) [address] [place] [address]Xzka nitrogen [Mass/Vol]10 mg/dLNormal7-25UnCleveland Clinic Mercy HospitalComment on above:Performed By: #### [id number] #### [facility] ([facility]) [address] [place] [address]NYWZ NITROGEN/CREATININE (MASS RATIO) IN SER/PLAS10.4Normal [facility] CenterComment on above:Performed By: #### [id number] #### [facility] ([facility]) [address] [place] [address]FAMCLEVdu 63-80-6182VNDPKRL Attestation signed by Jose Angel Mai MD [...] (Viagra) 25 mg ta (more content not included)...[facility] CenterEDNURSon 61-43-8971DMQARMEbebsop: transfer from [facility] Complaint: cellulitis to right leg, hx surgery on 09/24 Notes: patient arrived on this day via [facility] from [facility] for pain to the right leg. Previous surgery at [facility] on 09/24 for right leg tib/fib fracture. Per [facility] staff, patient arrived with increased pain, redness and swelling to right lower extremity. Ultrasound was negative for DVT. [place] ED treated for cellulitis, administered dose of zosyn at 0330, vancomycin at 2030 and 5mg oxycontin at 1930. Patient endorsed non-compliance, did not have post surgery follow up appointment and has been putting weight on leg. History of hypertension, patient O2 desat to 88% when sleeping. Per [facility], patient non-compliant with bipap. Upon arrival, patient endorsed pain 8/10 and nausea. Patient denied chest pain, fever, chills and shortness of breath.NormalUnCleveland Clinic Mercy Hospital EDPROVon 46-46-5346LFDEHNDykaxaaouzCleveland Clinic Mercy Hospital [address] [facility] [address] EMERGENCY DEPARTMENT ENCOUNTER CHIEF COMPLAINT Chief Complaint Patient presents with Cellulitis HISTORY OF PRESENT ILLNESS Matty Garces is a 54 y.o. male who presents with a Chief Complaint Patient presents with Cellulitis REVIEW OF SYSTEMS Review of Systems Musculoskeletal: Positive for arthralgias. Skin: Positive for rash. All other systems reviewed and are negative. The patient is a 54-year-old male who was transferred from [facility] for cellulitis involving recent right lower extremity surgery. Patient had surgical pair of a tibia fracture on September 24. The patient states that he went to [facility] emergency department today due to increased swelling. Patient was given Zosyn and vancomycin at [facility]. Patient states that he is having [...] No respiratory distress. B (more content not included)...NormalUnCleveland Clinic Mercy Hospital MAGNESIUMon 22-42-0498Kzjzlvomk [Mass/Vol]1.8 mg/dLLow1.9-2.7UnCleveland Clinic Mercy HospitalComment on above:Performed By: #### [id number] #### [facility] ([facility]) [address] [place], [place] [address]NHXMTBVJIZJJH RATEon 56-76-2918NXGUTISJCEBEG RATE, FVJTTBJLHBD31 mm/hrHigh<20UnCleveland Clinic Mercy HospitalComment on above:Performed By: #### [id number] #### [facility] ([facility]) [address] [place] [address]JFLYFKO D 25 HYDROXYon 52-63-1781BZZZEFJAP (25 [place] VITAMIN D3) (NG/ML) IN SER/PLAS37.0 ng/yGGtdwiy54.0-80.0UnCleveland Clinic Mercy Hospital Comment on above:Result Comment: >80.0 Toxicity possiblePerformed By: #### [id number] ####[facility] ([facility])[address] [address]kg [id number] Home [facility] called and is seeing the patient for wound care, PT, and OT. Seeing patient a couple times a week could specify a number of times. States is also doing dressing changes. [phone] [facility] HospitalTelephoneon 10-04-2024 [id number] Matty Garces 1970 M Date Provider Department Center 10/04/2024 124[address]-GOVBWBMATT [facility] MPORTHO No family history on file Reason for Visit and Comments: Information [Other]NormalUnCleveland Clinic Mercy Hospital36on Patient in home PT called and wanted to confirm if Dr. Field does the in home therapy approvals/orders or if he had to follow up with his PCP, rfp writer informed her he does. Patient is scheduled for 10/05/24.NormalUnCleveland Clinic Mercy HospitalBASIC METABOLIC PANELon 65-60-6572Watol gap [Moles/Vol]7 mmol/LNormal7-20 [facility] CenterComment on above:Performed By: #### [id number] ####[facility] ([facility])[address] [address]Rpiphls [Mass/Vol]9.6 mg/dLNormal8.6-10.3UnCleveland Clinic Mercy HospitalComment on above:Performed By: #### [id number] ####[facility] ([facility])[address] [address]Zbaqcobd [Moles/Vol]98 mmol/JYpffsh70-248RemhwjesvuCleveland Clinic Mercy HospitalComment on above:Performed By: #### [id number] ####[facility] ([facility])[address] [place] [address]MS3 [Moles/Vol]34 mmol/ICgbv80-18 [facility] CenterComment on above:Performed By: #### [id number] ####[facility] ([facility])[address] [place] [address]Zgplghzkdy [Mass/Vol]0.92 mg/dLNormal0.70-1.30UnCleveland Clinic Mercy HospitalComment on above:Performed By: #### [id number] ####[facility] ([facility])[address] [place] [address]ZUBTEFABBN FILTRATION RATE ML/MIN/1.73 SQ M.BKUPNQYNH82.9 mL/min/1.73m*2Normal>60.0UnCleveland Clinic Mercy HospitalComment on above: Result Comment: [facility]???s estimated glomerular filtration rate (eGFR) [...] anyone group of individuals.Performed By: #### [id number] ####[facility] ([facility])[address] [place] [address]Ifahngi [Mass/Vol]99 mg/tLOkdhdq74-589PtdjbtpwxfCleveland Clinic Mercy HospitalComment on above:Performed By: #### [id number] ####[facility] ([facility])[address] [place] [address]Ipoeopjvb [Moles/Vol]4.3 mmol/LNormal3.5-5.1UnCleveland Clinic Mercy HospitalComment on above:Performed By: #### [id number] ####[facility] ([facility])[address] [place] [address] Sodium [Moles/Vol]135 mmol/UYln783-135WwjzkcgmuuCleveland Clinic Mercy HospitalComment on above:Performed By: #### [id number] ####[facility] ([facility])[address] [address]Tuov nitrogen [Mass/Vol]20 mg/dLNormal7-25UnCleveland Clinic Mercy HospitalComment on above:Performed By: #### [id number] ####[facility] ([facility])[address] [place] [address]ZZZW NITROGEN/CREATININE (MASS RATIO) IN SER/PLAS21.7NormalUniversCorey HospitalComment on above: Performed By: #### [id number] ####[facility] ([facility])[address] [address]VFBki 63-25-2886Mrbwjrmptye distribution width (RBC) [Ratio]15.3 %High 11.5-15.0UnCleveland Clinic Mercy HospitalComment on above:Performed By: #### [id number] #### [facility] ([facility]) [address] [address]JLMHNKVTCVM MEAN CORPUSCULAR HEMOGLOBIN CONCENTRATION (G/DL) BY MEXTOXZFV94.9 g/dLLow32.0-35.0UnCleveland Clinic Mercy HospitalComment on above:Performed By: #### [id number] #### [facility] ([facility]) [address] [address]Ovfascesqf (Bld) [Volume fraction]44.4 %Epgsaj01.0-55.0 [facility] CenterComment on above:Performed By: #### [id number] #### [facility] ([facility]) [address] [place] [address]Cvjerdwsfc (Bld) [Mass/Vol]13.7 g/bGTuwapy81.0-17.0UnCleveland Clinic Mercy HospitalComment on above:Performed By: #### [id number] #### [facility] ([facility]) [address] [place] [address]MOL (RBC) [Entitic mass]26.5 pgLow27.0-33.0UnCleveland Clinic Mercy HospitalComment on above:Performed By: #### [id number] #### [facility] ([facility]) [address] [place] [place], [place] [address]AZJ (RBC) [Entitic vol]85.9 hVGgemyb62.0-98.0UnCleveland Clinic Mercy HospitalComment on above:Performed By: #### [id number] #### [facility] ([facility]) [address] [place], [place] [address]GREZVDSSX (10*3/UL) IN BLOOD AUTOMATED [id number] 10*3/uLNormal 150-400UnCleveland Clinic Mercy HospitalComment on above:Performed By: #### [id number] #### [facility] ([facility]) [address] [place], [place] [address]BTA (Bld) [#/Vol]5.17 10*6/uLNormal4.20-5.70UnCleveland Clinic Mercy HospitalComment on above:Performed By: #### [id number] #### [facility] ([facility]) [address] [facility] [place], [place] [address]BLR (Bld) [#/Vol]10.65 10*3/uLHigh4.00-10.60UnCleveland Clinic Mercy HospitalComment on above:Performed By: #### [id number] #### [facility] ([facility]) [address] [place], [place] [address]CQVTSRTto 02-65-8716FNREFWWEritipt tried CPAP in the past and was [...] Interventions Referrals/Orders: Yes, [facility] Spent: [facility] CenterDSon 52-88-8813PXPvguijcxf Admitted 09/23/2024 for Fall, syncope Comminuted right tib/fib fracture CHF HTN Hypomagnesemia Enlarged right hilar node Enlarged prostate Discharge Diagnosis Fall, syncope Comminuted right tib/fib fracture CHF HTN Hypomagnesemia Enlarged right hilar node Enlarged prostate Obstructive sleep apnea Morbid obesity Atrial flutter, new onset Discharge Disposition Home-Health Care [facility] (06) Discharge Medications Your medication list START [...] Medications These medications were sent to [facility] - [address] [place] [address] [address] [facility] [place] [address], [facility] [id number] acetaminophen 500 mg tablet aspirin 81 mg [...] team was informed at approximately 1730 per [facility] that patient went into a-flutter and sustained for approximately 2 hours fro (more content not included)...NormalSelect Medical Specialty Hospital - Cleveland-FairhillPROVon [id number] report has been cancelled.NormalDayton VA Medical CenterLetter (Out)on [id number] (Out)[id number] Matty Garces 1970 M Date Provider Department Center 09/28/2024 [id number], GENERIC PRO*INIT None No family history on fileNormalUniversCorey HospitalMAGNESIUMon [id number] [Mass/Vol]2.0 mg/dLNormal1.9-2.7UnCleveland Clinic Mercy HospitalComment on above:Performed By: #### [id number] #### [facility] ([facility]) [address] [place], [place] [address]GCFJGUGLyh [id number] signed AMA paperwork with trama team. Pt left with belongings and family. AMA paperwork in patient chart.NormalDayton VA Medical Center PHOSPHORUSon [id number] [Mass/Vol]3.3 mg/dLNormal2.5-5.0UnCleveland Clinic Mercy HospitalComment on above:Performed By: #### [id number] ####[facility] ([facility])[address] [place], [place] [address] [id number] patient is Moderately Stable - Low risk of patient condition declining or worsening The patient's goals for the shift include comfort The clinical goals for the shift include VSS, pain control Over the shift, the patient did not make progress toward the following goals. Barriers to progression include unstable VS. Recommendations to address these barriers include continue medications as orderedNormalUnishannon medical center south of [facility]30Daily Case Management Update Multidisciplinary rounds have been completed. Barriers to Discharge: Pending clinical course; POD3 IMN; 4L NC. Patient refusing CPaP at rest/sleep, Pulm brennen consulted and following. PT/OT recommending IPR, PMR consulted and recommend IPR. Patient and spouse would like to go home with [facility]. Referrals sent, pending accepting [facility] agency>>Radha Mendenhall [facility] accepting. DME recommended--wheelchair, rolling walker, bedside commode--scripts written and face to face notes signed.>>need sent to [employer] for fulfillment. SW following. Diet: Dietary [...] R tib fib facrture Level of Consultation Dinkey Operator Slag assumes full responsibility 09/23/24 1231 09/23/24 1221 [...] Answer: Post muscular skeletal surgical procedure 09/24/24 1242NormalUn[facility]Gal[facility]30The patient is Moderately Stable - Low [...] medicate for pain as ordered maintain safety precautions.NormalUnCleveland Clinic Mercy Hospital30The patient is Moderately Stable - Low [...] and behaviors that affect risk of falls Warne fall precautions as indicated by assessment Educate patient/family on patient safety, including physical limitations Instruct patient to call for assistance with activity based on assessment Modify environment to reduce risk of injuryNormalUniversCorey HospitalBASIC METABOLIC PANELon 07-15-9964Xapow gap [Moles/Vol]9 mmol/LNormal7-20 [facility] CenterComment on above:Performed By: #### [id number] #### [facility] ([facility]) [address] [place], [place] [address]Fiirxdj [Mass/Vol]9.3 mg/dLNormal8.6-10.3UnCleveland Clinic Mercy HospitalComment on above:Performed By: #### [id number] #### [facility] ([facility]) [address] [place], [place] [address]Squoeall [Moles/Vol]99 mmol/JCtbevk14-126BhcunavkrsCleveland Clinic Mercy HospitalComment on above:Performed By: #### [id number] #### [facility] ([facility]) [address] [place], [place] [address]RU7 [Moles/Vol]33 mmol/ONedu38-51JebmitinthCleveland Clinic Mercy HospitalComment on above:Performed By: #### [id number] #### [facility] ([facility]) [address] [place], [place] [address]Ptnvnejtoj [Mass/Vol]0.89 mg/dLNormal0.70-1.30UnCleveland Clinic Mercy HospitalComment on above:Performed By: #### [id number] #### [facility] ([facility]) [address] [place], [place] [address]NGEKUCRPTC FILTRATION RATE ML/MIN/1.73 SQ M.MDVNGPKJX956.8 mL/min/1.73m*2Normal>60.0UnCleveland Clinic Mercy HospitalComment on above: Result Comment: [facility]???s estimated glomerular filtration rate (eGFR) [...] affect anyone group of individuals.Performed By: #### [id number] #### [facility] ([facility]) [address] [place], [place] [address]Gynpmzz [Mass/Vol]95 mg/aPTyfbfq03-813TgtcuswgvcCleveland Clinic Mercy HospitalComment on above:Performed By: #### [id number] #### [facility] ([facility]) [address] [place], [place] [address]Dczjmsemj [Moles/Vol]4.1 mmol/LNormal3.5-5.1UnCleveland Clinic Mercy HospitalComment on above:Performed By: #### [id number] #### [facility] ([facility]) [address] [place], [place] [address]Jfxcje [Moles/Vol]137 mmol/CAqioed775-005PcvlcnzpsoCleveland Clinic Mercy HospitalComment on above:Performed By: #### [id number] #### [facility] ([facility]) [address] [place], [place] [address]Jvqf nitrogen [Mass/Vol]17 mg/dLNormal7-25UnCleveland Clinic Mercy HospitalComment on above:Performed By: #### [id number] #### [facility] ([facility]) [address] [place], [place] [address]MBIR NITROGEN/CREATININE (MASS RATIO) IN SER/PLAS19.1Normal [facility] CenterComment on above:Performed By: #### [id number] #### [facility] ([facility]) [address] [place], [place] [address]VBHue 18-75-6851Dmvoxprdaqx distribution width (RBC) [Ratio]15.4 %High11.5-15.0UnCleveland Clinic Mercy HospitalComment on above:Performed By: #### [id number] #### [facility] ([facility]) [address] [place] [address]JZKNKJCRCBO MEAN CORPUSCULAR HEMOGLOBIN CONCENTRATION (G/DL) BY XTOFVPFZK69.8 g/dLLow32.0-35.0UnCleveland Clinic Mercy HospitalComment on above:Performed By: #### [id number] #### [facility] ([facility]) [address] [place] [address]Jkkxpjcsih (Bld) [Volume fraction]45.5 %Tbdabs85.0-55.0 [facility] CenterComment on above:Performed By: #### [id number] #### [facility] ([facility]) [address] [place] [address]Tmmjyxquuz (Bld) [Mass/Vol]14.0 g/uEYntpkl50.0-17.0UnCleveland Clinic Mercy HospitalComment on above:Performed By: #### [id number] #### [facility] ([facility]) [address] [place] [address]CWD (RBC) [Entitic mass]26.5 pgLow27.0-33.0UnCleveland Clinic Mercy HospitalComment on above:Performed By: #### [id number] #### [facility] ([facility]) [address] [place] [address]TSF (RBC) [Entitic vol]86.0 zTZwikob96.0-98.0UnCleveland Clinic Mercy HospitalComment on above:Performed By: #### [id number] #### [facility] ([facility]) [address] [place] [address]OJGLOSYHQ (10*3/UL) IN BLOOD AUTOMATED [id number] 10*3/uLNormal 150-400UnCleveland Clinic Mercy HospitalComment on above:Performed By: #### [id number] #### [facility] ([facility]) [address] [place] [address]KPR (Bld) [#/Vol]5.29 10*6/uLNormal4.20-5.70UnCleveland Clinic Mercy HospitalComment on above:Performed By: #### [id number] #### [facility] ([facility]) [address] [place], [place] [address]MQO (Bld) [#/Vol]10.21 10*3/uLNormal4.00-10.60UnCleveland Clinic Mercy HospitalComment on above:Performed By: #### [id number] #### [facility] ([facility]) [address] [place], [place] [address]YKIYVGDYRgn 09-58-4966Cotkeaook [Mass/Vol]1.9 mg/dLNormal1.9-2.7 [facility] CenterComment on above:Performed By: #### [id number] #### [facility] ([facility]) [address] [facility] [place], [place] [address]GEEWJXXBTSwy 40-14-3112Mgfqfixix [Mass/Vol]4.4 mg/dLNormal 2.5-5.0UnCleveland Clinic Mercy HospitalComment on above:Performed By: #### [id number] #### [facility] ([facility]) [address] [place], [place] [address]BMCYND BLOOD GAS WITH IONIZED CALCIUMon 93-24-6212Fnpr excess Calc (BldV) [Moles/Vol]9.2 mmol/LNormalUnCleveland Clinic Mercy Hospital Comment on above:Performed By: #### [id number] ####[facility] RESPIRATORY [id number] [place] [address] USACALCIUM IONIZED (MMOL/L) IN BLOOD1.27 mmol/L Normal1.15-1.33UnCleveland Clinic Mercy HospitalComment on above:Performed By: #### [id number] ####[facility] RESPIRATORY [id number] [place] [address] [place] CO2 (BldV) [Partial pressure]50 mm[Hg]Youima04-50MrasahherpCleveland Clinic Mercy HospitalComment on above:Performed By: #### [id number] ####[facility] RESPIRATORY [id number] [place] [address] USAHCO3 (Bld) [Moles/Vol]34.8 mmol/L NormalUnCleveland Clinic Mercy HospitalComment on above:Performed By: #### [id number] ####[facility] RESPIRATORY [id number] [place] [address] USAOxygen (BldV) [Partial pressure]53 mm[Hg]Ytxg57-12UlxrllcagaCleveland Clinic Mercy Hospital Comment on above:Performed By: #### [id number] ####[facility] RESPIRATORY [id number] [place] [address] USAOXYGEN SATURATION (%) IN VENOUS BLOOD87.1 %High 65.0-75.0UnCleveland Clinic Mercy HospitalComment on above:Performed By: #### [id number] ####[facility] RESPIRATORY [id number] [place] [address] USAPH OF VENOUS BLOOD7.71Lklx8.31-7.41UnCleveland Clinic Mercy HospitalComment on above:Performed By: #### [id number] ####[facility] RESPIRATORY [id number] [place] [address] USABASIC METABOLIC PANELon 92-20-4520Kvoeb gap [Moles/Vol]8 mmol/LNormal7-20UnCleveland Clinic Mercy HospitalComment on above:Performed By: #### [id number] #### [facility] ([facility]) [address] [place], [place] [address]Msennat [Mass/Vol]9.4 mg/dLNormal8.6-10.3UnCleveland Clinic Mercy HospitalComment on above:Performed By: #### [id number] #### [facility] ([facility]) [address] [place], [place] [address]Updfrqql [Moles/Vol]99 mmol/MUamjdl83-556PhgtcysmoxCleveland Clinic Mercy HospitalComment on above:Performed By: #### [id number] #### [facility] ([facility]) [address] [place], [place] [address]UE3 [Moles/Vol]36 mmol/WDvae97-45OqeuqabzhrCleveland Clinic Mercy HospitalComment on above:Performed By: #### [id number] #### [facility] ([facility]) [address] [place] [address]Obpgtmaron [Mass/Vol]0.91 mg/dLNormal0.70-1.30UnCleveland Clinic Mercy HospitalComment on above:Performed By: #### [id number] #### [facility] ([facility]) [address] [place] [address]WSRKFKXVDV FILTRATION RATE ML/MIN/1.73 SQ M.VIMOLOIZE736.2 mL/min/1.73m*2Normal>60.0UnCleveland Clinic Mercy HospitalComment on above: Result Comment: [facility]???s estimated glomerular filtration rate (eGFR) [...] affect anyone group of individuals.Performed By: #### [id number] #### [facility] ([facility]) [address] [place] [address]Fbhpnsb [Mass/Vol]85 mg/xZBzuidl69-205ArlnzcsordCleveland Clinic Mercy HospitalComment on above:Performed By: #### [id number] #### [facility] ([facility]) [address] [place] [address]Sntlphoth [Moles/Vol]3.8 mmol/LNormal3.5-5.1UnCleveland Clinic Mercy HospitalComment on above:Performed By: #### [id number] #### [facility] ([facility]) [address] [place] [address]Vexikb [Moles/Vol]139 mmol/OQzgaur676-689DlucvowobhCleveland Clinic Mercy HospitalComment on above:Performed By: #### [id number] #### [facility] ([facility]) [address] [place] [address]Kkgd nitrogen [Mass/Vol]18 mg/dLNormal7-25UnCleveland Clinic Mercy HospitalComment on above:Performed By: #### [id number] #### [facility] ([facility]) [address] [place] [address]AKTY NITROGEN/CREATININE (MASS RATIO) IN SER/PLAS19.8Normal [facility] CenterComment on above:Performed By: #### [id number] #### [facility] ([facility]) [address] [place] [address]ZFOeb 28-12-3434Kxynjdshhcn distribution width (RBC) [Ratio]15.4 %High11.5-15.0UnCleveland Clinic Mercy HospitalComment on above:Performed By: #### [id number] #### [facility] ([facility]) [address] [place] [address]GNCBOOIDOMI MEAN CORPUSCULAR HEMOGLOBIN CONCENTRATION (G/DL) BY GXHRGXCVH68.1 g/dLLow32.0-35.0UnCleveland Clinic Mercy HospitalComment on above:Performed By: #### [id number] #### [facility] ([facility]) [address] [place] [address]Cislxsjdvp (Bld) [Volume fraction]43.8 %Vioxmy83.0-55.0 [facility] CenterComment on above:Performed By: #### [id number] #### [facility] ([facility]) [address] [place] [address]Nqnpphkuab (Bld) [Mass/Vol]13.6 g/gBZchxbe18.0-17.0UnCleveland Clinic Mercy HospitalComment on above:Performed By: #### [id number] #### [facility] ([facility]) [address] [place] [address]MZB (RBC) [Entitic mass]26.3 pgLow27.0-33.0UnCleveland Clinic Mercy HospitalComment on above:Performed By: #### [id number] #### [facility] ([facility]) [address] [place] [address]NEQ (RBC) [Entitic vol]84.7 kWFpuucn49.0-98.0UnCleveland Clinic Mercy HospitalComment on above:Performed By: #### [id number] #### [facility] ([facility]) [address] [place] [address]LFDYCUMLU (10*3/UL) IN BLOOD AUTOMATED [id number] 10*3/uLNormal 150-400UnCleveland Clinic Mercy HospitalComment on above:Performed By: #### [id number] #### [facility] ([facility]) [address] [place], [place] [address]UKY (Bld) [#/Vol]5.17 10*6/uLNormal4.20-5.70UnCleveland Clinic Mercy HospitalComment on above:Performed By: #### [id number] #### [facility] ([facility]) [address] [place] [address]FKH (Bld) [#/Vol]9.63 10*3/uLNormal4.00-10.60UnCleveland Clinic Mercy HospitalComment on above:Performed By: #### [id number] #### [facility] ([facility]) [address] [place], [place] [address]BSGSIMNVVuu 91-95-7983Eywuehvwu [Mass/Vol]1.9 mg/dLNormal1.9-2.7 [facility] CenterComment on above:Performed By: #### [id number] #### [facility] ([facility]) [address] [place], [place] [address]OGJYMBVUEBui 17-25-7731Uwsbbmfpm [Mass/Vol]2.6 mg/dLNormal 2.5-5.0UnCleveland Clinic Mercy HospitalComment on above:Performed By: #### [id number] #### [facility] ([facility]) [address] [place] [id number] 10-32-085[address]Wraljnc: Pain - Adult Goal: Verbalizes/displays adequate comfort [...] address these barriers include consult for respiratory therapy.[facility]30Daily Case Management Update Multidisciplinary rounds have been completed. Barriers to Discharge: Pending clinical course; patient requiring 10L salter at this time, pulmonary navigator consulted for possible PATEL. CXR ordered, no acute findings. Patient will require a home O2 evaluation if unable to wean oxygen. PT/OT recommending IPR, PMR consulted and recommend IPR. Patient and spouse would like to go home with [facility]. Referrals sent, pending accepting [facility] agency. DME recommended--wheelchair, rolling walker, bedside [...] R tib fib facrture Level of Consultation Dinkey Operator Slag assumes full responsibility 09/23/24 1231 09/23/24 1221 [...] Answer: Post muscular skeletal surgical procedure 09/24/24 1242NormalUniversCorey HospitalBASIC METABOLIC PANELon 82-96-1175Iaucz gap [Moles/Vol]9 mmol/LNormal7-20UnCleveland Clinic Mercy HospitalComment on above:Performed By: #### [id number] ####[facility] ([facility])[address] [place], [place] [address]Wfjuepe [Mass/Vol]8.9 mg/dLNormal 8.6-10.3UnCleveland Clinic Mercy HospitalComment on above:Performed By: #### [id number] ####[facility] ([facility])[address] [place], [place] [address]Uivdoxev [Moles/Vol]97 mmol/GXgw97-677WxumuigaysCleveland Clinic Mercy HospitalComment on above:Performed By: #### [id number] ####[facility] ([facility])[address] [place], [place] [address]SR2 [Moles/Vol]32 mmol/MAdry87-88QvrqgzxgwaCleveland Clinic Mercy HospitalComment on above:Performed By: #### [id number] ####[facility] ([facility])[address] [place], [place] [address]Zzhbrdaksd [Mass/Vol]0.91 mg/dLNormal 0.70-1.30UnCleveland Clinic Mercy HospitalComment on above:Performed By: #### [id number] ####[facility] ([facility])[address] [place], [place] [address]YKRKJBDJFC FILTRATION RATE ML/MIN/1.73 SQ M.SUXWCHWAH493.2 mL/min/1.73m*2Normal>60.0 [facility] CenterComment on above:Result Comment: [facility]???s estimated glomerular filtration rate (eG [...] group of individuals. Performed By: #### [id number] ####[facility] ([facility])[address] [place] [address]Fqpvpes [Mass/Vol]141 mg/xYOqfu04-348LpkkydwhspCleveland Clinic Mercy HospitalComment on above:Performed By: #### [id number] ####[facility] ([facility])[address] [place] [address]Vugvpsppa [Moles/Vol]4.2 mmol/LNormal 3.5-5.1UnCleveland Clinic Mercy HospitalComment on above:Performed By: #### [id number] ####[facility] ([facility])[address] [place] [address]Yxyoyf [Moles/Vol]134 mmol/UUvy028-942XlazyxwjxxCleveland Clinic Mercy HospitalComment on above:Performed By: #### [id number] ####[facility] ([facility])[address] [facility] [place] [address]Nzcx nitrogen [Mass/Vol]15 mg/dLNormal7-25UnCleveland Clinic Mercy HospitalComment on above:Performed By: #### [id number] ####[facility] ([facility])[address] [place], [place] [address]WDUO NITROGEN/CREATININE (MASS RATIO) IN SER/PLAS16.5NormalUniversCorey HospitalComment on above: Performed By: #### [id number] ####[facility] ([facility])[address] [place] [place], [place] [address]PIZqd 11-87-0008Czojyufvvni distribution width (RBC) [Ratio]14.9 % Kapzhe83.5-15.0UnCleveland Clinic Mercy HospitalComment on above:Performed By: #### [id number] #### [facility] ([facility]) [address] [place], [place] [address]VIUECHOEUNN MEAN CORPUSCULAR HEMOGLOBIN CONCENTRATION (G/DL) BY YTCXCICHS11.1 g/dLLow32.0-35.0UnCleveland Clinic Mercy HospitalComment on above:Performed By: #### [id number] #### [facility] ([facility]) [address] [place] [address]Kkndqjxzez (Bld) [Volume fraction]45.4 %Qkxvge51.0-55.0 [facility] CenterComment on above:Performed By: #### [id number] #### [facility] ([facility]) [address] [place] [address]Ugatyaknhf (Bld) [Mass/Vol]14.1 g/dFJmvbiq06.0-17.0UnCleveland Clinic Mercy HospitalComment on above:Performed By: #### [id number] #### [facility] ([facility]) [address] [place] [address]IIP (RBC) [Entitic mass]26.3 pgLow27.0-33.0UnCleveland Clinic Mercy HospitalComment on above:Performed By: #### [id number] #### [facility] ([facility]) [address] [place] [address]RHG (RBC) [Entitic vol]84.5 gSXdwcbq28.0-98.0UnCleveland Clinic Mercy HospitalComment on above:Performed By: #### [id number] #### [facility] ([facility]) [address] [place] [address]VNKUWBEYY (10*3/UL) IN BLOOD AUTOMATED [id number] 10*3/uLNormal 150-400UnCleveland Clinic Mercy HospitalComment on above:Performed By: #### [id number] #### [facility] ([facility]) [address] [place] [address]ALD (Bld) [#/Vol]5.37 10*6/uLNormal4.20-5.70UnCleveland Clinic Mercy HospitalComment on above:Performed By: #### [id number] #### [facility] ([facility]) [address] [place] [address]OTP (Bld) [#/Vol]14.37 10*3/uLHigh4.00-10.60UnCleveland Clinic Mercy HospitalComment on above:Performed By: #### [id number] #### [facility] ([facility]) [place] [address]WQODSEVWWfv 38-30-1898Iyaymcwab [Mass/Vol]2.1 mg/dLNormal1.9-2.7 [facility] CenterComment on above:Performed By: #### [id number] ####[facility] ([facility])[address] [place] [address]WYGZMFAIbr 23-87-5821URLQNQTGZzfcro RN met patient at bedside and provided the Trauma Services Patient Brochure. Patient will follow-up with Orthopedics 10/05/2024 at 0900. No further needs currently.NormalUnCleveland Clinic Mercy HospitalPHOSPHORUSon 09-25-2024 Magnesium [Mass/Vol]2.8 mg/dLNormal2.5-5.0UnCleveland Clinic Mercy Hospital Comment on above:Performed By: #### [id number] ####[facility] ([facility])[address] [place] [id number] 44-58-995603Fyv patient is Moderately Stable - Low risk [...] Adult Goal: Free from fall injury Outcome: ProgressingNormalUniversCorey HospitalBASIC METABOLIC PANELon 57-53-2279Ymrpm gap [Moles/Vol]8 mmol/LNormal7-20UnCleveland Clinic Mercy HospitalComment on above:Performed By: #### [id number] ####[facility] ([facility])[address] [place] [address]Zsifgrw [Mass/Vol]9.1 mg/dLNormal 8.6-10.3UnCleveland Clinic Mercy HospitalComment on above:Performed By: #### LAB15 ####[facility] ([facility])[address] [place], [place] [address]Gnktybit [Moles/Vol]98 mmol/XFnigzw33-563JhpobmfuwcCleveland Clinic Mercy HospitalComment on above:Performed By: #### LAB15 ####[facility] ([facility])[address] [place] [address]BM1 [Moles/Vol]35 mmol/ZFysw98-56LfsonejslfCleveland Clinic Mercy HospitalComment on above:Performed By: #### [id number] ####[facility] ([facility])[address] [place], [place] [address]Mtckkdaadf [Mass/Vol]1.02 mg/dLNormal 0.70-1.30UnCleveland Clinic Mercy HospitalComment on above:Performed By: #### [id number] ####[facility] ([facility])[address] [place], [place] [address]DUFOIONYEU FILTRATION RATE ML/MIN/1.73 SQ M.YXUYJWBST27.3 mL/min/1.73m*2Normal>60.0 [facility] CenterComment on [facility]:Result Comment: [facility]???s estimated glomerular filtration rate (eG [...] group of individuals. Performed By: #### [id number] ####[facility] ([facility])[address] [place], [place] [address]Eoptorn [Mass/Vol]103 mg/eHTftz09-081EpgmpelahjCleveland Clinic Mercy HospitalComment on above:Performed By: #### [id number] ####[facility] ([facility])[address] [place], [place] [address]Atrzobnfo [Moles/Vol]4.2 mmol/LNormal 3.5-5.1UnCleveland Clinic Mercy HospitalComment on above:Performed By: #### [id number] ####[facility] ([facility])[address] [place] [address]Ldaogo [Moles/Vol]137 mmol/UWmuilu162-789ZbcjviigmmCleveland Clinic Mercy HospitalComment on above:Performed By: #### [id number] ####[facility] [facility] ([facility])[address] [place] [place] [address]Jzxw nitrogen [Mass/Vol]11 mg/dLNormal7-25UnCleveland Clinic Mercy HospitalComment on above:Performed By: #### [id number] ####[facility] ([facility])[address] [place] [place] [address]NIHM NITROGEN/CREATININE (MASS RATIO) IN SER/PLAS10.8NormalUniversCorey HospitalComment on above: Performed By: #### [id number] ####[facility] ([facility])[address] [place], [place] [address]NDXeu 89-45-8246Nqhphajsvzi distribution width (RBC) [Ratio]15.5 %High 11.5-15.0UnCleveland Clinic Mercy HospitalComment on above:Performed By: #### [id number] #### [facility] ([facility]) [address] [place] [address]HOCIOUJIJGM MEAN CORPUSCULAR HEMOGLOBIN CONCENTRATION (G/DL) BY KRKHEUXES25.4 g/dLLow32.0-35.0UnCleveland Clinic Mercy HospitalComment on above:Performed By: #### [id number] #### [facility] ([facility]) [address] [place], [place] [address]Itlnacabip (Bld) [Volume fraction]46.4 %Bezqvb01.0-55.0 [facility] Medical CenterComment on above:Performed By: #### [id number] #### [facility] ([facility]) [address] [place], [place] [address]Wwihuoownb (Bld) [Mass/Vol]14.1 g/cGKncnqq47.0-17.0UnCleveland Clinic Mercy HospitalComment on above:Performed By: #### [id number] #### [facility] ([facility]) [address] [address]IVI (RBC) [Entitic mass]26.4 pgLow27.0-33.0UnCleveland Clinic Mercy HospitalComment on above:Performed By: #### [id number] #### [facility] ([facility]) [address] [address]JYS (RBC) [Entitic vol]86.7 iKGsghvd76.0-98.0UnCleveland Clinic Mercy HospitalComment on above:Performed By: #### [id number] #### [facility] ([facility]) [address] [place] [address]HNVQRZHST (10*3/UL) IN BLOOD AUTOMATED NMRYO064 10*3/uLNormal 150-400UnCleveland Clinic Mercy HospitalComment on above:Performed By: #### [id number] #### [facility] ([facility]) [address] [place] [address]APN (Bld) [#/Vol]5.35 10*6/uLNormal4.20-5.70UnCleveland Clinic Mercy HospitalComment on above:Performed By: #### [id number] #### [facility] ([facility]) [address] [place] [address]QQJ (Bld) [#/Vol]7.56 10*3/uLNormal4.00-10.60UnCleveland Clinic Mercy HospitalComment on above:Performed By: #### [id number] #### [facility] ([facility]) [address] [place] [address]POKSHZXgq 29-73-7421NEQYJLUTzvptwlk Medicine and Rehabilitation Consult Note Patient not staffed by PM&R today due to surgery today for IMN placement. Our team will staff tomorrow, 09/25/23. Silvia Zaldivar MDNormalUniversity East [place] Regional HospitalMAGNESIUMon 48-41-4032Wkrijbvsd [Mass/Vol]2.2 mg/dLNormal1.9-2.7UnWestern Reserve Hospital Medical CenterComment on above:Performed By: #### [id number] #### [facility] NÉSTOR PRIEST) ALEXX ZHU [address]XPXKGRlb 05-29-7306KHZZME Attestation signed by Sandrine Field MD at [...] Operative Note Date: 09/23/2024 - 09/24/2024 Location: [facility] OR Name: Matty Garces, : [...] by intramedullary implant with interlocking screws [CPT: 02926] Stress exam of right ankle under anesthesia [CPT: 67986] Intraoperative use of fluoroscopy less than 1 hour by physician [CPT: 58085] Surgeons Primary: Sandrine Field MD Resident - [...] mm x 34 mm interlocking screw Staff: Rum Processing Operator: Emi Francis RN Tipping Machine Operator: CHARLINE Montejo Scrub Person: Araseli Butler CST Indications: Matty Garces is an 53 y.o. male who presented as a transfer from [facility] on 09/23/2024. Patient was transferred due to findings of a right distal third tibial shaft fracture after a fall in the shower. The fracture was closed and was subsequently reduced and splinted at [place] in a long-leg splint. Patient made stable [...] of the soft t (more content not included)...NormalUnCleveland Clinic Mercy Hospital PHOSPHORUSon 01-19-8373Nphlhdqxb [Mass/Vol]4.0 mg/dLNormal2.5-5.0UnCleveland Clinic Mercy HospitalComment on above:Performed By: #### [id number] #### [facility] (AKER) [address] [place], [place] [address]YLPC GLUCOSE METER UNSOLICITED RESULTSon 30-41-6488Lavzbae [Mass/Vol]100 mg/zGCjvufn06-747DoagomerpoCleveland Clinic Mercy HospitalComment on above:Order Comment: Waived Testing in the ED is performed under the ED CLIA certificate #[id number].Result Comment: dtubsw3Feiklppkf By: #### [id number] #### [facility] (BEAKER) [address] [place], [place] [address]VALJkd 54-86-8991SJCFSFQCH PARTIAL THROMBOPLASTIN TIME IN PPP BY COAGULATION ASSAY31.2 PabaksnWvjqbf88.0-35.0UnCleveland Clinic Mercy Hospital Comment on above:Result Comment: Clinical significance of the APTT is questionable in the presence of heparin.Performed By: #### [id number] ####[facility] ([facility])[address] [place] [address]GOS WITH AUTO DIFFERENTIALon 74-44-3075Lhnytcgje (Bld) [#/Vol]0.05 10*3/uLNormal0.00-0.20 [facility] CenterComment on above:Performed By: #### [id number] ####[facility] ([facility])[address] [place] [address]Cjiybolqc/100 WBC (Bld)0.5 %Normal0.0-1.0UnCleveland Clinic Mercy HospitalComment on above: Performed By: #### [id number] ####[facility] ([facility])[address] [place], [place] [address]Phsjjkhsxnb (Bld) [#/Vol]0.11 10*3/uLNormal0.00-0.50 [facility] CenterComment on above:Performed By: #### [id number] ####[facility] ([facility])[address] [place] [address]Exhkxyfrsvz/100 WBC (Bld)1.0 %Normal0.0-6.0UnCleveland Clinic Mercy HospitalComment on above: Performed By: #### [id number] ####[facility] ([facility])[address] [place], [place] [address]Vssposcsihx distribution width (RBC) [Ratio]15.9 %High 11.5-15.0UnCleveland Clinic Mercy HospitalComment on above:Performed By: #### [id number] ####[facility] ([facility])[address] [place] [address] ERYTHROCYTE MEAN CORPUSCULAR HEMOGLOBIN CONCENTRATION (G/DL) BY XZTAUBDSY25.3 g/dLLow32.0-35.0UnCleveland Clinic Mercy HospitalComment on above:Performed By: #### [id number] ####[facility] ([facility])[address] [place], [place] [address]Ijhmmmxkfz (Bld) [Volume fraction]47.8 %Scrvyw11.0-55.0UnCleveland Clinic Mercy HospitalComment on above:Performed By: #### [id number] ####[facility] ([facility])[address] [place], [place] [address]Cswpjsxumj (Bld) [Mass/Vol]14.5 g/dL Vldqpe54.0-17.0UnCleveland Clinic Mercy HospitalComment on above:Performed By: #### [id number] ####[facility] ([facility])[address] [place] [address] Immature granulocytes (Bld) [#/Vol]0.10 10*3/uLNormal0.00-0.20UnCleveland Clinic Mercy HospitalComment on above:Performed By: #### [id number] ####[facility] ([facility])[address] [place], [place] [address]Fssyamoo granulocytes/100 WBC (Bld)0.9 %Normal0.0-1.0UnCleveland Clinic Mercy HospitalComment on above: Performed By: #### [id number] ####[facility] ([facility])[address] [place], [place] [address]Rhoreixembr (Bld) [#/Vol]0.74 10*3/uLLow1.20-4.00UnCleveland Clinic Mercy HospitalComment on above:Performed By: #### [id number] ####[facility] ([facility])[address] [place], [place] [address]Ajjuhrclmww/100 WBC (Bld) 7.0 %Low20.0-45.0UnCleveland Clinic Mercy HospitalComment on above:Performed By: #### [id number] ####[facility] ([facility])[address] [place], [place] [address]HEJ (RBC) [Entitic mass]26.4 pgLow27.0-33.0UnCleveland Clinic Mercy HospitalComment on above:Performed By: #### [id number] ####[facility] (BEAKER)[address] [place], [place] [address]WCQ (RBC) [Entitic vol]87.1 fLNormal 82.0-98.0UnCleveland Clinic Mercy HospitalComment on above:Performed By: #### [id number] ####[facility] ([facility])[address] [place] [address] Monocytes (Bld) [#/Vol]0.73 10*3/uLNormal0.10-1.00UnCleveland Clinic Mercy HospitalComment on above:Performed By: #### [id number] ####[facility] ([facility])[address], [place] [address]Xwtspzzps/100 WBC (Bld)6.9 %Normal 5.0-12.0UnCleveland Clinic Mercy HospitalComment on above:Performed By: #### [id number] ####[facility] ([facility])[address] [place] [address] Neutrophils (Bld) [#/Vol]8.83 10*3/uLHigh1.60-7.60UnCleveland Clinic Mercy HospitalComment on above:Performed By: #### [id number] ####[facility] ([facility])[address] [facility]KIN[facility], [place] [address]Nfrizfpncth/100 WBC (Bld)83.7 %High 40.0-72.0UnCleveland Clinic Mercy HospitalComment on above:Performed By: #### [id number] ####[facility] ([facility])[address], [place] [address]KUCU (PER 100 WBCS) BY AUTOMATED COUNT0.0 %Ufuhpf2AadjxifjqiCleveland Clinic Mercy Hospital Comment on above:Performed By: #### [id number] ####[facility] ([facility])[address] [facility]ALLY[facility] [place], [place] [address]GKISPPPTZ (10*3/UL) IN BLOOD AUTOMATED TQHOV443 10*3/kFKrmfzf614-765JvsxsmbpgcCleveland Clinic Mercy HospitalComment on above: Performed By: #### [id number] ####[facility] ([facility])[address], [place] [address]QRH (Bld) [#/Vol]5.49 10*6/uLNormal4.20-5.70UnCleveland Clinic Mercy HospitalComment on above:Performed By: #### [id number] ####[facility] ([facility])[address] [place] [address]LCB (Bld) [#/Vol]10.56 10*3/uLNormal4.00-10.60UnCleveland Clinic Mercy HospitalComment on above: Performed By: #### [id number] ####[facility] ([facility])[address] [place], [place] [address]UATNSYSAJTZPR METABOLIC PANELon 10-40-0230Ygjpcxu [Mass/Vol] 3.9 g/dLNormal3.5-5.7UnCleveland Clinic Mercy HospitalComment on above: Performed By: #### [id number] ####[facility] ([facility])[address] [place], [place] [address]OHF [Catalytic activity/Vol]98 U/NItmgzw76-637UcsvdkqvfbCleveland Clinic Mercy HospitalComment on above:Performed By: #### [id number] ####[facility] ([facility])[address] [place], [place] [address]TDX [Catalytic activity/Vol]34 U/L Normal7-52UnCleveland Clinic Mercy HospitalComment on above:Performed By: #### [id number] ####[facility] ([facility])[address] [place], [place] [address]Epomd gap [Moles/Vol]11 mmol/LNormal7-20UnCleveland Clinic Mercy HospitalComment on above:Performed By: #### [id number] ####[facility] ([facility])[address] [place], [place] [address]PBN [Catalytic activity/Vol]63 U/ANfrm13-26VyjyumonuyCleveland Clinic Mercy HospitalComment on above:Performed By: #### [id number] ####[facility] ([facility])[address] [place], [place] [address]Wiinwbbmh [Mass/Vol]0.7 mg/dL Normal0.3-1.0UnCleveland Clinic Mercy HospitalComment on above:Performed By: #### [id number] ####[facility] (BEAKER)[address] [place] [address] Calcium [Mass/Vol]8.9 mg/dLNormal8.6-10.3UnCleveland Clinic Mercy Hospital Comment on above:Performed By: #### [id number] ####[facility] (BEAKER)[address] [place], [place] [address]Phmihfpp [Moles/Vol]101 mmol/HTmselb87-151 [facility] CenterComment on above:Performed By: #### [id number] ####[facility] ([facility])[address] [place], [place] [address]VF4 [Moles/Vol] 27 mmol/AFgnwul21-50AywrmbimwyCleveland Clinic Mercy HospitalComment on above: Performed By: #### [id number] ####[facility] ([facility])[address] [place], [place] [address]Yszhdtdzco [Mass/Vol]0.96 mg/dLNormal0.70-1.30UnCleveland Clinic Mercy HospitalComment on above:Performed By: #### [id number] ####[facility] ([facility])[address] [place], [place] [address]MOGWYDBOLV FILTRATION RATE ML/MIN/1.73 SQ M.OIFRYOGUV93.9 mL/min/1.73m*2Normal>60.0UnCleveland Clinic Mercy Hospital Comment on above:Result Comment: [facility]???s estimated glomerular filtration rate (eGFR) [...] anyone group of individuals.Performed By: #### [id number] ####[facility] ([facility])[address] [place], [place] [address]Urbxaig [Mass/Vol]93 mg/qATeicca08-387JxqeahiplcCleveland Clinic Mercy HospitalComment on above:Performed By: #### [id number] ####[facility] ([facility])[address] [place] [address]Wktrmveti [Moles/Vol]4.3 mmol/LNormal3.5-5.1UnCleveland Clinic Mercy HospitalComment on above:Performed By: #### [id number] ####[facility] ([facility])[address] [place] [address]Dvzigso [Mass/Vol]7.2 g/dLNormal 6.0-8.3UnCleveland Clinic Mercy HospitalComment on above:Performed By: #### [id number] ####[facility] ([facility])[address] [address]Dgkfyn [Moles/Vol]135 mmol/YFyj766-034KtnzemfyhfCleveland Clinic Mercy HospitalComment on above:Performed By: #### [id number] ####[facility] ([facility])[address] [place] [address]Kfkt nitrogen [Mass/Vol]8 mg/dLNormal7-25UnCleveland Clinic Mercy HospitalComment on above:Performed By: #### [id number] ####[facility] ([facility])[address] [place] [address]ZUHO NITROGEN/CREATININE (MASS RATIO) IN SER/PLAS8.3NormalUniversCorey HospitalComment on above: Performed By: #### [id number] ####[facility] ([facility])[address] [place] [address]EYVYDHHwf 04-41-1201RFVRVCK Attestation signed by Sandrine Field MD at [...] Alvarez MD Orthopaedic Surgery, Resident Ortho Pager [phone] 09/23/24 6:55 PM May contact the on-call resident with any concerns via the Orthopaedic pager at any time.[facility] CenterCT ABDOMEN PELVIS W IV CONTRASTon 26-01-2427CI ABDOMEN PELVIS W IV CONTRASTClinical History and [...] PSA is advised. * Electronically signed: Fahad Frazier.[facility] CenterCT CERVICAL SPINE WO IV CONTRASTon 50-65-1721LA CERVICAL SPINE WO IV CONTRASTCT CERVICAL SPINE [...] acute fracture nor listhesis. Electronically signed: Fahad Frazier.[facility] CenterCT CHEST W IV CONTRASTon 79-02-4865IQ CHEST W IV CONTRASTCT CHEST W IV [...] 3-4 months is recommended. Electronically signed: Fahad Frazier.[facility] CenterCT HEAD WO IV CONTRASTon 93-74-9721BW HEAD WO IV CONTRASTClinical History and Information: [...] unenhanced CT brain * Electronically signed: Fahad Frazier.[facility] CenterCT TIBIA FIBULA RIGHT WO IV CONTRASTon 05-78-4735KT TIBIA FIBULA RIGHT WO IV CONTRASTCT TIBIA [...] changes of the knee Electronically signed: Fahad Frazier.[facility] EDNURSon 68-08-0341IWDWIBZtgy of arrival (squad #, walk in, police, etc): [facility] Chief complaint(s): Right leg fracture Arrival Note (brief scenario, treatment PORTER HEAD, etc): Patient arrives via [facility] from [facility] to be seen by orthopedics for Right tib-fib fracture. Patient arrives with Rt leg splintedNormalUniversWilson Memorial HospitalPROVon 16-26-3794DAHNXBGledwez of Present Illness Chief Complaint Patient presents with Leg Injury Initial evaluation completed by Dr. Lang. Matty Garces is a 53 y/o male presenting to the ED with c/o leg injury. Pt was transferred from [facility] for right distal tibfib fracture. Pt states [...] Procedure Abnormality Status --------- ------ CBC auto differential[[id number]] Abnormal Final result Please view results for these tests on the individual orders. TYPE AND SCREEN ABO G (more content not included)...NormalUnCleveland Clinic Mercy Hospital ETHANOLon 83-17-4893QQTVETX (MG/DL) IN SER/PLAS<10Normal<10UnCleveland Clinic Mercy HospitalComment on above:Performed By: #### [id number] #### [facility] (BEAKER) [address] [place], [place] [address]COFDFCV CALCULATED (%)<0.01NormalUniversCorey HospitalComment on above:Performed By: #### [id number] #### [facility] (BEAKER) [address] [place], [place] [address]UGhn 10-21-6690WORopncqpuzp of [place] Trauma Surgery Chief Complaint: Trauma Fall Mechanism of Injury: 53 y.o. year old male who was brought in via EMS. He had no C-collar or back board in place. Circumstances of injury: Patient states that he was recently admitted to [facility] for cellulitis to the [facility], he was discharged yesterday and this morning was home, he got out of bed to take a shower and had a micro seizure and heard his right ankle snap. Denies hitting head or LOC but admits that he doesn't remember the whole event. He went back to [facility] ED where a right tib/fib fracture was found and patient was transferred to [facility] Of note patient is on anticoagulant/antiplatelets. Baby aspirin, however he was receiving Shots to prevent blood clots while inpatient at [facility] Review of Systems: General: No For Chills, [...] lb)] 136 kg (300 lb) (09/23 1048) [place] Coma Scale Score: 15 No intake or [...] GCS 15 Neck: Cervica (more content not included)...NormalDayton VA Medical CenterLACTIC ACID, PLASMAon 72-87-6812SMAJPOE (MMOL/L) IN SER/PLAS0.6 mmol/L Normal0.5-2.2UnCleveland Clinic Mercy HospitalComment on above:Performed By: #### [id number] #### [facility] ([facility]) [address], [place] [address]KIOVDKARPtj 02-22-1296Awjlyyfrk [Mass/Vol]1.8 mg/dLLow1.9-2.7 [facility] Medical CenterComment on above:Performed By: #### [id number] ####[facility] ([facility])[address] [place], [place] [address]HEXUEGFRXLhn 32-61-7852Yeflzootu [Mass/Vol]3.5 mg/dLNormal2.5-5.0UnCleveland Clinic Mercy HospitalComment on above:Performed By: #### [id number] #### [facility] ([facility]) [address] [place], [place] [address]VMCDYEM-TDXts 80-42-9104UDF IN PPP BY COAGULATION ASSAY1.28High 0.90-1.10UnCleveland Clinic Mercy HospitalComment on above:Result Comment: ACCCP RECOMMENDED INR [...] RANGE. CHEST 1995;108:231S-246S.Performed By: #### [id number] #### [facility] ([facility]) [address] [place], [place] [address]UFVGMSVUMJU TIME (PT) IN PPP BY COAGULATION ASSAY15.9 Seconds High12.3-14.8UnCleveland Clinic Mercy HospitalComment on above:Performed By: #### [id number] #### [facility] ([facility]) [address] [place], [place] [address]HIQCVRLTYJ PANEL URINEon 07-63-9806VREDMUIQZST+METHAMPHETAMINE SCREEN (PRESENCE) IN URINENegativeNormalNegativeUnCleveland Clinic Mercy HospitalComment on above:Performed By: #### [id number] #### [facility] ([facility]) [address] [place] [place], [place] [address]DBOGKZONTYGY PRESENCE IN URINE BY SCREEN METHODNegativeNormal NegativeUnCleveland Clinic Mercy HospitalComment on above:Performed By: #### [id number] #### [facility] ([facility]) [address] [place] [place], [place] [address]Chbhteumdthfesq Ql (U)NegativeNormalNegativeUnCleveland Clinic Mercy HospitalComment on above:Performed By: #### [id number] #### [facility] ([facility]) [address] [place], [place] [address]PINWSVBZTGC (PRESENCE) IN URINE BY SCREEN METHODNegativeNormal NegativeUnCleveland Clinic Mercy HospitalComment on above:Performed By: #### [id number] #### [facility] ([facility]) [address] [place], [place] [address]Ztykzwk Ql (U)NegativeNormalNegativeUnCleveland Clinic Mercy HospitalComment on above:Performed By: #### [id number] #### [facility] ([facility]) [address] [place], [place] [address]JRMMZEZXS (PRESENCE) IN URINE BY SCREEN METHODNegativeNormal NegativeUnCleveland Clinic Mercy HospitalComment on above:Performed By: #### [id number] #### [facility] ([facility]) [address] [place], [place] [address]WCSDZNZ (PRESENCE) IN URINE BY SCREEN METHODPositiveAbnormal NegativeUnCleveland Clinic Mercy HospitalComment on above:Performed By: #### [id number] #### [facility] ([facility]) [address] [place] [place], [place] [address]OSBEXLUIEJQAU PRESENCE IN URINE BY SCREEN METHODNegativeNormal NegativeUnCleveland Clinic Mercy HospitalComment on above:Performed By: #### [id number] #### [facility] ([facility]) [address] [place] [place], [place] [address]Dygxlfczjpwt Screen Ql (U)NegativeNormalNegativeUnCleveland Clinic Mercy HospitalComment on above:Performed By: #### [id number] #### [facility] ([facility]) [address] [place] [place], [place] [address]SPDYGAETS ANTIDEPRESSANTS (PRESENCE) IN URINENegativeNormal NegativeDayton VA Medical CenterComment on above:Performed By: #### [id number] #### [facility] ([facility]) [address] [place], [place] [address]WXTPARQJ Ion 80-56-0562Gzcppbsr I.cardiac [Mass/Vol]0.01 ng/mL Normal0.00-0.04UnCleveland Clinic Mercy HospitalComment on above:Performed By: #### [id number] #### [facility] ([facility]) [address] [place], [place] [address]DMHG AND SCREENon [id number] SCREENNegativeNormalUniGalion Community HospitalComment on above:Performed By: #### [id number] #### [facility] ([facility]) [address] [place], [place] [address]WZI group Nom (Bld)ANormalUniverslakehealth beachwood medical center of [facility] Comment on above:Performed By: #### [id number] #### [facility] ([facility]) [address] [place], [place] [address]BM TYPE IN BLOODPositiveNormalUniverslakehealth beachwood medical center of [facility] CenterComment on above:Performed By: #### [id number] #### [facility] ([facility]) [address] [place], [place] [address]CYBAPNWEOJcn [id number], TOTAL PRESENCE IN URINE NegativeNormalNegativeDayton VA Medical CenterComment on above:Order Comment: Microscopics not performed on urines with negative chemical reactions unless requested on original order.Performed By: #### [id number] ####[facility] [facility] [place], [place] [address]Befeccv (U)ClearNormalClear [facility] Medical CenterComment on above:Order Comment: Microscopics not performed on urines with negative chemical reactions unless requested on original order.Performed By: #### [id number] ####[facility] ([facility])[address], [place] [address]Atfuv (U)YellowNormalColorless, Yellow, Light-YellowUnCleveland Clinic Mercy HospitalComment on above:Order Comment: Microscopics not performed on urines with negative chemical reactions unless requested on original order.Performed By: #### [id number] ####[facility] ([facility])[address], [place] [address]OJICQAX (MG/DL) IN URINENormalNormal NormalUnCleveland Clinic Mercy HospitalComment on above:Order Comment: Microscopics not performed on urines with negative chemical reactions unless requested on original order.Performed By: #### [id number] ####[facility] ([facility])[address], [place] [address]JVCTMDLMAF PRESENCE IN URINENegative NormalNegativeUnCleveland Clinic Mercy HospitalComment on above:Order Comment: Microscopics not performed on urines with negative chemical reactions unless requested on original order.Performed By: #### [id number] ####[facility] ([facility])[address], [place] [address]Dpvwtwl Ql (U)NegativeNormalNegative [facility] CenterComment on above:Order Comment: Microscopics not performed on urines with negative chemical reactions unless requested on original order.Performed By: #### [id number] ####[facility] ([facility])[address], [place] [address]AOEHWZZHQ ESTERASE PRESENCE IN URINE BY TEST STRIP NegativeNormalNegativeUnCleveland Clinic Mercy HospitalComment on above:Order Comment: Microscopics not performed on urines with negative chemical reactions unless requested on original order.Performed By: #### [id number] ####[facility] ([facility])[address] [place], [place] [address]WFMRJSZ PRESENCE IN URINENegative NormalNegativeDayton VA Medical CenterComment on above:Order Comment: Microscopics not performed on urines with negative chemical reactions unless requested on original order.Performed By: #### [id number] ####[facility] ([facility])[address] [place], [place] [address]kA (U)6.0 [pH]Normal5.0-8.0UnCleveland Clinic Mercy HospitalComment on above:Order Comment: Microscopics not performed on urines with negative chemical reactions unless requested on original order.Performed By: #### [id number] ####[facility] ([facility])[address] [place], [place] [address]Gmkossq (U) [Mass/Vol]NegativeNormalNegative [facility] CenterComment on above:Order Comment: Microscopics not performed on urines with negative chemical reactions unless requested on original order.Performed By: #### [id number] ####[facility] ([facility])[address] [place], [place] [address]Hlqqnqat gravity (U) [Rel density]1.050High 1.010-1.030UnCleveland Clinic Mercy HospitalComment on above:Order Comment: Microscopics not performed on urines with negative chemical reactions unless requested on original order.Performed By: #### [id number] ####[facility] ([facility])[address] [place], [place] [address]EUEFSAGDVYIM (MG/DL) IN URINENormal NormalNormalUniversCorey HospitalCompine rest christian [facility] services on above:Order Comment: Microscopics not performed on urines with negative chemical reactions unless requested on original order.Performed By: #### [id number] ####[facility] ([facility])[address] [place], [place] [address]GICEOUE D 25 HYDROXYon 09-23-2024 CALCIDIOL (25 [place] VITAMIN D3) (NG/ML) IN SER/PLAS42.6 ng/fKDvmnjd34.0-80.0 [facility] CenterComment on above:Result Comment: >80.0 Toxicity possiblePerformed By: #### [id number] #### [facility] ([place]) [address] [place], [place] [address]Ipitzrlhbdi Wound Cultureon 39-30-3719Ohjljwdghbd Wound Culture ORGANISM: Methicillin Resis Staph Aureus [...] RESISTANT TO ALL B-LACTAM DRUGS. PERFORMED BY: [place] [address] PATHOLOGIST STRUCTURAL TEST ENGINEER STEVE ANGEL M.D.[facility] Physician GroupComment on above: Performed By: #### CUSUP #### [facility] [address] [place] [address] USACT CSPINE WO CONon [id number] BARIINE WO CONEXAM: CT BARIINE WO CON [...] Electronically authenticated by: ANGEL SAID Date: 2022-12-06 06:37[facility] HospitalCT FACIAL BONES WO CONon [id number] FACIAL BONES WO CONEXAM: CT FACIAL BONES [...] Electronically authenticated by: ANGEL SAID Date: 2022-12-06 06:41NoPomerene HospitalCT HEAD WO CONon [id number] HEAD WO CONEXAM: CT HEAD WO CON [...] Electronically authenticated by: ANGEL SAID Date: 2022-12-06 06:39[facility] HospitalXR ELBOW RT MIN 3 VIEWSon [id number] ELBOW RT MIN 3 VIEWS Exam: Radiographs: XR ELBOW RT MIN 3 VIEWS Reason for exam: Elbow pain Comparison: None IMPRESSION: Right elbow degenerative changes. Olecranon spur. Remainder of the right elbow is unremarkable. Electronically authenticated by: MICHAEL CASANOVA Date: 2022-12-06 07:22NoPomerene HospitalXR FOREARM RT 2Von [id number] FOREARM RT 2VExam: Radiographs: XR FOREARM RT 2V Reason for exam: Forearm pain Comparison: None IMPRESSION: Mild degenerative changes in the right elbow and wrist. Right forearm is otherwise unremarkable. Electronically authenticated by: MICHAEL CASANOVA Date: 2022-12-06 08:07NoPomerene HospitalPSA, FREE AND TOTAL RATIOon 12-03-2022% Free PSA9.0 %NormalThe [facility] HospitalComment on above:Result Comment: The table below lists [...] population of men.Performed By: #### PSAFREE #### [facility] [address] [place] [address] Dr. Shabnam RaeMusc Health [facility] specific Ag [Mass/Vol]5.9 ng/mLCritically high0.0-4.0The [facility] HospitalComment on above:Result Comment: Francheska ECLIA methodology. . According to the [place] [employer], Serum PSA should decrease and [...] of malignant disease.Performed By: #### PSAFREE #### [facility] [address] [place] [address] Dr. Shabnam RaePSA, Free0.53 ng/mLNormalN/AThe [facility] HospitalComment on above:Result Comment: Francheska ECLIA methodology.Performed By: #### PSAFREE #### [facility] [address] [place] [address] Dr. Shabnam RaeINSULINon 55-50-5560Etlfwul89.2 uIU/mLNormal2.6-24.9The [facility] HospitalComment on above:Performed By: #### PSASC #### [facility] [address] [place] [address] Dr. Shabnam RaeTESTOSTERONE, TOTALon 52-37-9608Vdyojabssrvm [Mass/Vol]256 ng/dL Critically eik500-869Veg [facility] HospitalComment on above:Result Comment: Adult male reference interval is based on a population of healthy nonobese males (BMI <30) between 19 and 39 years old. Dima et.al. JCEM 2017,102;8702-6399. PMID: [id number].Performed By: #### PSASC #### [facility] [address] [place] [address] Dr. Shabnam Dunham AUTO DIFFon 34-16-5407XWJV #0.1 103/ulNormal0.0-0.1Veterans Health AdministrationComment on above:Performed By: #### PSASC #### [facility] [address] [place] [address] Dr. Shabnam RaeBasophils/100 WBC (Bld)1.0 %Normal0.2-2.0The [facility] Comment on above:Performed By: #### PSASC #### [facility] [address] [place] [address] Dr. Shabnam Rivera #0.1 103/ulNormal0.0-0.7The [facility] HospitalComment on above: Performed By: #### PSASC #### [facility] [address] [place] [address] Dr. Shabnam Samosinophils/100 WBC (Bld)1.8 %Normal0.9-7.0[facility] Comment on above:Performed By: #### PSASC #### [facility] [address] [place] [address] Dr. Shabnam Samrythrocyte distribution width (RBC) [Ratio]14.8 %Lszngy31.0-15.0 The [facility] HospitalComment on above:Performed By: #### PSASC #### [facility] [address] [place] [address] Dr. Shabnam RaeHematocrit (Bld) [Volume fraction]49.9 %Yqefsw42.0-54.0The [facility] HospitalComment on above:Performed By: #### PSASC #### [facility] [address] [place] [address] Dr. Shabnam RaeHemoglobin (Bld) [Mass/Vol]16.0 g/cDGyajvj03.0-18.0The [facility] HospitalComment on above:Performed By: #### PSASC #### [facility] [address] [place] [address] Dr. Shabnam Hayward #0.04 10e3/ulCritically high0.00-0.03[facility] Comment on above:Performed By: #### PSASC #### [facility] [address] [place] [address] Dr. Shabnam Hayward %0.6 %Critically high0.0-0.5ThCleveland Clinic Akron General Lodi HospitalComment on above:Performed By: #### PSASC #### [facility] [address] [place] [address] Dr. Shabnam PandyaH #1.0 103/ulCritically low1.2-3.8The [facility] Comment on above:Performed By: #### PSASC #### [facility] [address] [place] [address] Dr. Shabnam Diazmphocytes/100 WBC (Bld)16.2 %Critically low20.5-60.0The [facility] HospitalComment on above:Performed By: #### PSASC #### [facility] [address] [place] [address] Dr. Shabnam Daniel DIFF REQNONormalThe [facility] HospitalComment on above: Performed By: #### PSASC #### [facility] [address] [place] [address] Dr. Shabnam Nava (RBC) [Entitic mass]27.7 ibMthlvx62.9-34.0The [facility] HospitalComment on above:Performed By: #### PSASC #### [facility] [address] [place] [address] Dr. Shabnam Nava (RBC) [Mass/Vol]32.1 g/zEKnuuyw11.9-35.2The [facility] HospitalComment on above:Performed By: #### PSASC #### [facility] [address] [place] [address] Dr. Shabnam Nava (RBC) [Entitic vol]86.3 vWSxpkgi02.0-94.0The [facility] HospitalComment on above:Performed By: #### PSASC #### [facility] [address] [place] [address] Dr. Shabnam Mcfarland #0.5 103/ulNormal0.3-0.8The [facility] HospitalComment on above:Performed By: #### PSASC #### [facility] [address] [place] [address] Dr. Shabnam Brunnerocytes/100 WBC (Bld)7.6 %Normal1.7-12.0The [facility] Comment on above:Performed By: #### PSASC #### [facility] [address] [place] [address] Dr. Shabnam Medrano #4.6 103/ulNormal1.4-6.5The [facility] HospitalComment on above:Performed By: #### PSASC #### [facility] [address] [place] [address] Dr. Shabnam Larautrophils/100 WBC (Bld)72.8 %Qiptln03.0-75.0The [facility] HospitalComment on above:Performed By: #### PSASC #### [facility] [address] [address] [address] Shabnam Miranda mean volume (Bld) [Entitic vol]9.8 fLNormal9.5-13.5The [facility] HospitalComment on above:Performed By: #### PSASC #### [facility] [address] [address] [address] Shabnam RaePLT203 103/pvVntpdh604-485Spg [facility] HospitalComment on above: Performed By: #### PSASC #### [facility] [address] [place] [address] Dr. Shabnam RaeRBC5.78 106/ulNormal4.70-6.10The [facility] HospitalComment on above:Performed By: #### PSASC #### [facility] [address] [place] [address] Dr. Shabnam RaeWBC6.3 103/ulNormal4.0-11.0The [facility] HospitalComment on above: Performed By: #### PSASC #### [facility] [address] [place] [address] Dr. Shabnam RaeFRPRISCILLA THYROXINE INDEX T7on 64-21-2629BHZ4.88Lavsqk1.30-4.50The [facility] HospitalComment on above:Performed By: #### TSH, CMP, LIPID, T7, URIC #### [facility] [address] [address] [address] Shabnam RaeT3U33.0 %Tdghat50.0-40.0The [facility] HospitalComment on above: Performed By: #### TSH, CMP, LIPID, T7, URIC #### [facility] [address] [address] [address] Shabnam RaeT4 [Mass/Vol]6.20 ug/dLNormal4.50-12.10The [facility] Comment on above:Performed By: #### TSH, CMP, LIPID, T7, URIC #### [facility] [address] [address] [address] Shabnam RaeGLYCOHEMOGLOBIN A1Con 19-45-8325FMT RECOMMENDATIONSEE BELOWNormal The [facility] HospitalComment on above:Result Comment: ADA RECOMMENDED LIMIT 4.0 - 6.0 ADA THERAPEUTIC TARGET < 7.0 ACTION SUGGESTED > 7.0Performed By: #### PSASC #### [facility] [address] [place] [address] Dr. Shabnam RaeGlucose [Mass/Vol]114 mg/dLNoPomerene HospitalComment on above:Performed By: #### PSASC #### [facility] [address] [place] [address] Dr. Shabnam RaeHbA1c (Bld) [Mass fraction]5.6 %Normal4.5-6.2The [facility] HospitalComment on above:Performed By: #### PSASC #### [facility] [address] [place] [address] Dr. Shabnam RaeLIPID PROFILEon 59-70-7750FFVR-HDL RATIO NORMSEE [facility] SystemComment on above:Result Comment: 3.3 - 4.4 LOW RISK 4.4 - 7.1 AVERAGE RISK 7.1 - 11.0 MODERATE RISK >11.0 HIGH RISKPerformed By: #### TSH, CMP, LIPID, T7, URIC #### [facility] [address] [place] [address] Dr. Shabnam Mckeonesterol [Mass/Vol]176 mg/dLNormal<=200The [facility] Comment on above:Performed By: #### TSH, CMP, LIPID, T7, URIC #### [facility] [address] [address] [address] Shabnam RaeCholesterol in HDL [Mass/Vol]48 mg/cSCxvoen13-01Uiw [facility] HospitalComment on above:Performed By: #### TSH, CMP, LIPID, T7, URIC #### [facility] [address] [place] [address] Dr. Shabnam Mckeonesterol in LDL [Mass/Vol]108.2 mg/dLNoPomerene HospitalComment on above:Performed By: #### TSH, CMP, LIPID, T7, URIC #### [facility] [address] [address] [address] Shabnam RaeCholesterol.total/Cholesterol in HDL [Mass ratio]3.7 {ratio} NormalThe [facility] HospitalComment on above:Performed By: #### TSH, CMP, LIPID, T7, URIC #### [facility] [address] [address] [address] Shabnam Hanley NORMAL> or = 60 mg/dl - LOW CARDIOVASCULAR RISK <40 mg/dl - HIGH CARDIOVASCULAR RISKGeorgetown Behavioral HospitalComment on above:Performed By: #### TSH, CMP, LIPID, T7, URIC #### [facility] [address] [address] [address] Shabnam RaeLDL CALC NORMALSEE BELOWGeorgetown Behavioral HospitalComment on above:Result Comment: <100 mg/dl OPTIMAL 100 - 129 mg/dl NEAR OR ABOVE OPTIMAL 130 - 159 mg/dl BORDERLINE HIGH 160 - 189 mg/dl HIGH >190 mg/dl VERY HIGH Performed By: #### TSH, CMP, LIPID, T7, URIC #### [facility] [address] [address] [address] Shabnam RaeTriglyceride [Mass/Vol]99 mg/dLNormal<=150The [facility] Comment on above:Performed By: #### TSH, CMP, LIPID, T7, URIC #### [facility] [address] [address] [address] Shabnam RaeVLDL CALC19.8 mg/dLNoPomerene HospitalComment on above: Performed By: #### TSH, CMP, LIPID, T7, URIC #### [facility] [address] [address] [address] Shabnam RaePROF 14(COMP METB)on 54-49-8564Xlpukfu [Mass/Vol]4.1 g/dLNormal 3.4-5.0The [facility] Hospitalment on above:Performed By: #### TSH, CMP, LIPID, T7, URIC #### [facility] [address] [address] [address] Shabnam RaeAlbumin/Globulin [Mass ratio]1.1 {ratio}NormalThe [facility] HospitalComment on above:Performed By: #### TSH, CMP, LIPID, T7, URIC #### [facility] [address] [place] [address] Dr. Shabnam Rizzo [Catalytic activity/Vol]101 U/ZYsxwwy99-489Prd [facility] HospitalComment on above:Performed By: #### TSH, CMP, LIPID, T7, URIC #### [facility] [address] [place] [address] Dr. Shabnam Sofia [Catalytic activity/Vol]26 U/KIaxcrc68-08Uea [facility] HospitalComment on above:Performed By: #### TSH, CMP, LIPID, T7, URIC #### [facility] [address] [place] [address] Dr. Shabnam Johnsonon gap [Moles/Vol]10.1 mmol/LNormalThe [facility] Comment on above:Performed By: #### TSH, CMP, LIPID, T7, URIC #### [facility] [address] [place] [address] Dr. Shabnam Jean [Catalytic activity/Vol]19 U/QJezoxf11-62Snu [facility] HospitalComment on above:Performed By: #### TSH, CMP, LIPID, T7, URIC #### [facility] [address] [place] [address] Dr. Shabnam RaeBilirubin [Mass/Vol]0.8 mg/dLNormal0.2-1.0[facility] Comment on above:Performed By: #### TSH, CMP, LIPID, T7, URIC #### [facility] [address] [place] [address] Dr. Shabnam RaeCalcium [Mass/Vol]9.5 mg/dLNormal8.5-10.1[facility] Comment on above:Performed By: #### TSH, CMP, LIPID, T7, URIC #### [facility] [address] [place] [address] Dr. Shabnam RaeChloride [Moles/Vol]102 mmol/GApgxmd34-093Zor [facility] Comment on above:Performed By: #### TSH, CMP, LIPID, T7, URIC #### [facility] [address] [place] [address] Dr. Shabnam RaeCO2 [Moles/Vol]32.4 mmol/LCritically high21.0-32.0The [facility] HospitalComment on above:Performed By: #### TSH, CMP, LIPID, T7, URIC #### [facility] [address] [place] [address] Dr. Shabnam RaeCreatinine [Mass/Vol]1.00 mg/dLNormal0.70-1.30The [facility] HospitalComment on above:Performed By: #### TSH, CMP, LIPID, T7, URIC #### [facility] [address] [place] [address] Dr. Shabnam SamGFR-AF VINCENTIAN>60Normal>=60The [facility] HospitalComment on above:Performed By: #### TSH, CMP, LIPID, T7, URIC #### [facility] [address] [place] [address] Dr. Shabnam SamGFR-NON AF VINCENTIAN>60Normal>=60The [facility] HospitalComment on above:Performed By: #### TSH, CMP, LIPID, T7, URIC #### [facility] [address] [place] [address] Dr. Shabnam RaeGlobulin (S) [Mass/Vol]3.8 g/dLNormalThe [facility] HospitalComment on above:Performed By: #### TSH, CMP, LIPID, T7, URIC #### [facility] [address] [place] [address] Dr. Shabnam RaeGlucose [Mass/Vol]94 mg/hYLyfebu17-376CmbVeterans Health Administration Comment on above:Performed By: #### TSH, CMP, LIPID, T7, URIC #### [facility] [address] [place] [address] Dr. Shabnam RaePotassium [Moles/Vol]3.5 mmol/LNormal3.5-5.1The [facility] Comment on above:Performed By: #### TSH, CMP, LIPID, T7, URIC #### [facility] [address] [place] [address] Dr. Shabnam RaeProtein [Mass/Vol]7.9 g/dLNormal6.4-8.2The [facility] Comment on above:Performed By: #### TSH, CMP, LIPID, T7, URIC #### [facility] [address] [place] [address] Dr. Shabnam RaeSodium [Moles/Vol]141 mmol/RCszvsz956-436Vsb [facility] Comment on above:Performed By: #### TSH, CMP, LIPID, T7, URIC #### [facility] [address] [place] [address] Dr. Shabnam RaeUrea nitrogen [Mass/Vol]15.0 mg/dLNormal7.0-18.0The [facility] HospitalComment on above:Performed By: #### TSH, CMP, LIPID, T7, URIC #### [facility] [address] [place] [address] Dr. Shabnam RaeUrea nitrogen/Creatinine [Mass ratio]15.0 mg/mgNormalThe [facility] HospitalComment on above:Performed By: #### TSH, CMP, LIPID, T7, URIC #### [facility] [address] [place] [address] Dr. Shabnam GoldbergHomeaghan 10-46-7606YSO4.504 uIU/mLNormal0.358-3.740The [facility] HospitalComment on above:Performed By: #### TSH, CMP, LIPID, T7, URIC #### [facility] [address] [place] [address] Dr. Shabnam RaeURIC ACID SERUMon 33-86-9667Rxyhb [Mass/Vol]6.9 mg/dLNormal 3.5-7.2The [facility] HospitalComment on above:Performed By: #### TSH, CMP, LIPID, T7, URIC #### [facility] [address] [place] [address] Dr. Shabnam RaeTESTOSTERONE, TOTALon 18-19-9087Jnlqhqqnrgjn [Mass/Vol]244 ng/dL Critically hhy931-707Ghb [facility] HospitalComment on above:Result Comment: Adult male reference interval is based on a population of healthy nonobese males (BMI <30) between 19 and 39 years old. Dima, et.al. [facility] 2017,102;4651-8238. PMID: [id number].Performed By: #### PSAFREE #### [facility] [address] [place] [address] Dr. Shabnam RaeTESTOSTERONE, FREE,DIRECT, TOTALon 66-28-7382Xqrm Testosterone(Direct)2.1 pg/mLCritically low7.2-24.0[facility] Health AdministrationComment on above:Result Comment: Performed at: BNPerformed By: #### CVDTBH #### [facility] [address] [place] [address] Dr. Shabnam RaeTestosterone [Mass/Vol]252 ng/dLCritically msf892-476Hmw [facility] HospitalComment on above:Result Comment: Adult male reference interval is based on a population of healthy nonobese males (BMI <30) between 19 and 39 years old. Travbrad, et.al. [facility] 2017,102;4657-0455. PMID: [id number]. Performed at: CBPerformed By: #### CVDTBH #### [facility] [address] [place] [address] Dr. Shabnam Ashford 58-83-2681Zjbrs [id number]#1.00CD:127[facility] Hospitalcreenson 93-24-1978Vkfrfog [id number]#1.00CD:127NoUniversity Hospitals Conneaut Medical [id number]#1.00CD:127[facility] HospitalUrology Office/Clinic Noteon 72-62-5809Gvatkhc Office/Clinic NoteChief Complaint referred Hydrocele HPI Staff [...] Ongoing No qualifying data (more content not included)...[facility] HospitalComment on above:Result Comment: Electronically Signed By: Viola Grullon MD\.br\Date and Time Signed: 02/26/22 00:20EDT\.br\Electronically Co-Signed By: Helen Leung\.br\Date and Time Co-Signed: 02/25/22 11:16 EDTAmbulatory Visit Summaryon 50-43-6006Xpshigplwc Visit Summary MATTY GARCES :1970 Visit Date:02/25/2022 Ambulatory Visit Instructions Your Diagnosis Hydrocele Varicocele BPH without urinary obstruction Tests Performed Urnls Dip Stick Auto w/o Microscopy POC 93868 Your Care Team Attending Physician - Viola [...] Urnls Dip Stick Auto w/o Microscopy POC 90338 (02/25/2022) Bilirubin Urine Dipstick - Negative Blood Urine Dipstick - Negative Glucose Urine Dipstick - Negative Ketones Urine Dipstick - Negative Leukocytes Urine Dipstick - Negative Nitrite Urine Dipstick - Negative Protein Urine Dipstick - Negative Specific Manson Urine Dipstick - >=1.030 Urine Appearance Urine [...] the hydrocele for any changes. ? Take nfzw-fbg-bqlaynx and prescription medicines only as told by [...] is not intended t (more content not included)...[facility] Educationon 51-71-0754Gyyjwty EducationUrology Hydrocele, Adult A hydrocele is a [...] the hydrocele for any changes. ? Take enfp-bzf-qaoywbc and prescription medicines only as told by [...] Reviewed: 09/10/2018 Elsevier Patient Education ? 2019 [employer].[facility] ED Note-Physicianon 85-32-6397TE Note-Physician [id number]#1.00CD:[address] [place], [place] [address]RAD - Ultrasound Reporton [id number] - Ultrasound Report [id number]#1.00CD:[address] [place], [place] [address]RAD - CT Reporton [id number] - CT Report [id number]#1.00CD:[address] [place], [place] [address]RAD - CT [id number]#1.00CD:[address] [place], [place] [address]CBC AUTO DIFFon [id number] #0.0 103/ulNormal 0.0-0.1The [facility] HospitalComment on above:Performed By: #### PSAFRPRISCILLA #### [facility] [address] [address] [address] Shabnam Benavidezphils/100 WBC (Bld)0.6 %Normal0.2-2.0[facility] Comment on above:Performed By: #### PSAFREE #### [facility] [address] [address] [address] Shabnam Rivera #0.1 103/ulNormal0.0-0.7The [facility] HospitalComment on above: Performed By: #### PSAFREE #### [facility] [address] [place] [address] Dr. Shabnam Samosinophils/100 WBC (Bld)2.1 %Normal0.9-7.0[facility] Comment on above:Performed By: #### PSAFREE #### [facility] [address] [place] [address] Dr. Shabnam Samrythrocyte distribution width (RBC) [Ratio]13.1 %Mqsosw00.0-15.0 The [facility] HospitalComment on above:Performed By: #### PSAFREE #### [facility] [address] [place] [address] Dr. Shabnam RaeHematocrit (Bld) [Volume fraction]43.1 %Aentmg81.0-54.0The [facility] HospitalComment on above:Performed By: #### PSAFREE #### [facility] [address] [place] [address] Dr. Shabnam RaeHemoglobin (Bld) [Mass/Vol]13.7 g/dLCritically low14.0-18.0The [facility] HospitalComment on above:Performed By: #### PSAFREE #### [facility] [address] [place] [address] Dr. Shabnam Hayward #0.04 10e3/ulCritically high0.00-0.03The [facility] Comment on above:Performed By: #### PSAFREE #### [facility] [address] [place] [address] Dr. Shabnam Hayward %0.6 %Critically high0.0-0.5The [facility] HospitalComment on above:Performed By: #### PSAFREE #### [facility] [address] [place] [address] Dr. Shabnam Gomez #0.9 103/ulCritically low1.2-3.8[facility] Comment on above:Performed By: #### PSAFREE #### [facility] [address] [place] [address] Dr. Shabnam Diazmphocytes/100 WBC (Bld)13.1 %Critically low20.5-60.0The [facility] HospitalComment on above:Performed By: #### PSAFREE #### [facility] [address] [place] [address] Dr. Shabnam Daniel DIFF REQNONormalThe [facility] HospitalComment on above: Performed By: #### PSAFREE #### [facility] [address] [place] [address] Dr. Shabnam Nava (RBC) [Entitic mass]29.5 whQconqx21.9-34.0The [facility] HospitalComment on above:Performed By: #### PSAFREE #### [facility] [address] [place] [address] Dr. Shabnam Nava (RBC) [Mass/Vol]31.8 g/xYVcichi70.9-35.2The [facility] HospitalComment on above:Performed By: #### PSAFREE #### [facility] [address] [place] [address] Dr. Shabnam Nava (RBC) [Entitic vol]92.9 yJSvhpty86.0-94.0Veterans Health AdministrationComment on above:Performed By: #### PSAFREE #### [facility] [address] [place] [address] Dr. Shabnam Mcfarland #0.4 103/ulNormal0.3-0.8The [facility] HospitalComment on above:Performed By: #### PSAFREE #### [facility] [address] [place] [address] Dr. Shabnam Brunnerocytes/100 WBC (Bld)5.4 %Normal1.7-12.0[facility] Comment on above:Performed By: #### PSAFREE #### [facility] [address] [place] [address] Dr. Shabnam Medrano #5.2 103/ulNormal1.4-6.5The [facility] HospitalComment on above:Performed By: #### PSAFREE #### [facility] [address] [place] [address] Dr. Shabnam Larautrophils/100 WBC (Bld)78.2 %Critically high43.0-75.0The [facility] HospitalComment on above:Performed By: #### PSAFREE #### [facility] [address] [place] [address] Dr. Shabnam Miranda mean volume (Bld) [Entitic vol]10.9 fLNormal9.5-13.5The [facility] HospitalComment on above:Performed By: #### PSAFREE #### [facility] [address] [place] [address] Dr. Shabnam RaePLT153 103/adUzdxxg937-891Hca [facility] HospitalComment on above: Performed By: #### PSAFREE #### [facility] [address] [place] [address] Dr. Shabnam RaeRBC4.64 106/ulCritically low4.70-6.10The [facility] HospitalComment on above:Performed By: #### PSAFREE #### [facility] [address] [place] [address] Dr. Shabnam RaeWBC6.6 103/ulNormal4.0-11.0The [facility] HospitalComment on above: Performed By: #### PSAFREE #### [facility] [address] [place] [address] Dr. Shabnam Bang 03-64-3305WJO1.9 mg/dLNormal<=1.0[facility] Comment on above:Performed By: #### PSAFREE #### [facility] [address] [place] [address] Dr. Shabnam Ortiz 14(COMP METB)on 82-20-7197Fnhjdfo [Mass/Vol]3.6 g/dLNormal 3.4-5.0The [facility] HospitalComment on above:Performed By: #### PSAFREE #### [facility] [address] [address] [address] Shabnam RaeAlbumin/Globulin [Mass ratio]1.0 {ratio}NormalThe [facility] Memorial HospitalComment on above:Performed By: #### PSAFREE #### [facility] [address] [address] [address] Shabnam JohnstonP [Catalytic activity/Vol]114 U/VDyjopq04-761Jcw [facility] HospitalComment on above:Performed By: #### PSAFREE #### [facility] [address] [address] [address] Shabnam Sofia [Catalytic activity/Vol]26 U/TJzulbo90-28Sij [facility] HospitalComment on above:Performed By: #### PSAFREE #### [facility] [address] [address] [address] Shabnam Johnsonon gap [Moles/Vol]9.3 mmol/LNormalThe [facility] HospitalComment on above:Performed By: #### PSAFREE #### [facility] [address] [address] [address] Shabnam RaeAST [Catalytic activity/Vol]19 U/YJcxxzw85-27Anj [facility] HospitalComment on above:Performed By: #### PSAFREE #### [facility] [address] [address] [address] Shabnam RaeBilirubin [Mass/Vol]0.5 mg/dLNormal0.2-1.0[facility] Comment on above:Performed By: #### PSAFREE #### [facility] [address] [address] [address] Shabnam RaeCalcium [Mass/Vol]8.9 mg/dLNormal8.5-10.1[facility] Comment on above:Performed By: #### PSAFREE #### [facility] [address] [address] [address] Shabnam RaeChloride [Moles/Vol]106 mmol/RUmxsjb36-312Sls [facility] Comment on above:Performed By: #### PSAFREE #### [facility] [address] [address] [address] Shabnam RaeCO2 [Moles/Vol]30.7 mmol/CIjhavt46.0-32.0[facility] Comment on above:Performed By: #### PSAFREE #### [facility] [address] [address] [address] Shabnam RaeCreatinine [Mass/Vol]1.15 mg/dLNormal0.70-1.30The [facility] HospitalComment on above:Performed By: #### PSAFREE #### [facility] [address] [address] [address] Shabnam SamGFR-AF VINCENTIAN>60Normal>=60The [facility] HospitalComment on above:Performed By: #### PSAFREE #### [facility] [address] [address] [address] Shabnam SamGFR-NON AF VINCENTIAN>60Normal>=60The [facility] HospitalComment on above:Performed By: #### PSAFREE #### [facility] [address] [address] [address] Shabnam RaeGlobulin (S) [Mass/Vol]3.6 g/dLNormalThe [facility] HospitalComment on above:Performed By: #### PSAFREE #### [facility] [address] [address] [address] Shabnam RaeGlucose [Mass/Vol]117 mg/dLCritically bhjk47-738Rmm [facility] HospitalComment on above:Performed By: #### PSAFREE #### [facility] [address] [address] [address] Shabnam RaePotassium [Moles/Vol]4.0 mmol/LNormal3.5-5.1[facility] Comment on above:Performed By: #### PSAFREE #### [facility] [address] [address] [address] Shabnam RaeProtein [Mass/Vol]7.2 g/dLNormal6.1-8.2[facility] Comment on above:Performed By: #### PSAFREE #### [facility] [address] [address] [address] Shabnam RaeSodium [Moles/Vol]142 mmol/ZZgeblj114-492Hwi [facility] Comment on above:Performed By: #### PSAFREE #### [facility] [address] [address] [address] Shabnam RaeUrea nitrogen [Mass/Vol]15.0 mg/dLNormal7.0-18.0The [facility] HospitalComment on above:Performed By: #### PSAFREE #### [facility] [address] [address] [address] Shabnam Gu nitrogen/Creatinine [Mass ratio]13.0 mg/mgNormalThe [facility] HospitalComment on above:Performed By: #### PSAFREE #### [facility] [address] [address] [address] Shabnam Floyd SCROTUMon 75-44-3687XR SCROTUMEXAMINATION: US SCROTUM HISTORY: Acute pelvic pain [...] Electronically authenticated by: ALVINA CAICEDO Date: 2022-01-05 08:48[address]Th[address] [facility] AUTO DIFFon 69-96-8628DEKD #0.1 103/ulNormal0.0-0.1The [facility] HospitalComment on above:Performed By: #### CBC #### [facility] [address] [address] [address] Shabnam RaeBasophils/100 WBC (Bld)0.8 %Normal0.2-2.0The [facility] Comment on above:Performed By: #### CBC #### [facility] [address] [place] [address] Dr. Shabnam Rivera #0.1 103/ulNormal0.0-0.7The [facility] HospitalComment on above: Performed By: #### CBC #### [facility] [address] [place] [address] Dr. Shabnam Samosinophils/100 WBC (Bld)1.5 %Normal0.9-7.0The [facility] Comment on above:Performed By: #### CBC #### [facility] [address] [place] [address] Dr. Shabnam Samrythrocyte distribution width (RBC) [Ratio]12.8 %Gfuajc15.0-15.0 [facility] AdministrationComment on above:Performed By: #### CBC #### [facility] [address] [place] [address] Dr. Shabnam RaeHematocrit (Bld) [Volume fraction]40.3 %Critically low42.0-54.0 The [facility] HospitalComment on above:Performed By: #### CBC #### [facility] [address] [place] [address] Dr. Shabnam RaeHemoglobin (Bld) [Mass/Vol]13.4 g/dLCritically low14.0-18.0The [facility] HospitalComment on above:Performed By: #### CBC #### [facility] [address] [address] [address] Shabnam Hayward #0.03 10e3/ulNormal0.00-0.03The [facility] HospitalComment on above:Performed By: #### CBC #### [facility] [address] [address] [address] Shabnam Hayward %0.5 %Normal0.0-0.5The [facility] HospitalComment on above: Performed By: #### CBC #### [facility] [address] [address] [address] Shabnam Gomez #1.0 103/ulCritically low1.2-3.8[facility] Comment on above:Performed By: #### CBC #### [facility] [address] [place] [address] Dr. Shabnam Pandyahocytes/100 WBC (Bld)16.4 %Critically low20.5-60.0The [facility] HospitalComment on above:Performed By: #### CBC #### [facility] [address] [place] [address] Dr. Shabnam GranadoUAL DIFF REQNONormalThe [facility] HospitalComment on above: Performed By: #### CBC #### [facility] [address] [place] [address] Dr. Shabnam Nava (RBC) [Entitic mass]29.5 zyPolbsc39.9-34.0The [facility] HospitalComment on above:Performed By: #### CBC #### [facility] [address] [place] [address] Dr. Shabnam Nava (RBC) [Mass/Vol]33.3 g/sTOwqpvw51.9-35.2The [facility] HospitalComment on above:Performed By: #### CBC #### [facility] [address] [place] [address] Dr. Shabnam Nava (RBC) [Entitic vol]88.8 oJHgrxst59.0-94.0The [facility] HospitalComment on above:Performed By: #### CBC #### [facility] [address] [address] [address] Shabnam Mcfarland #0.6 103/ulNormal0.3-0.8The [facility] HospitalComment on above:Performed By: #### CBC #### [facility] [address] [address] [address] Shabnam Brunnerocytes/100 WBC (Bld)9.6 %Normal1.7-12.0[facility] Comment on above:Performed By: #### CBC #### [facility] [address] [place] [address] Dr. Shabnam Medrano #4.4 103/ulNormal1.4-6.5The [facility] HospitalComment on above:Performed By: #### CBC #### [facility] [address] [place] [address] Dr. Shabnam Larautrophils/100 WBC (Bld)71.2 %Zfazwf13.0-75.0The [facility] HospitalComment on above:Performed By: #### CBC #### [facility] [address] [place] [address] Dr. Shabnam Miranda mean volume (Bld) [Entitic vol]10.8 fLNormal9.5-13.5The [facility] HospitalComment on above:Performed By: #### CBC #### [facility] [address] [place] [address] Dr. Shabnam RaePLT158 103/ybIjfgql247-779Fyf [facility] HospitalComment on above: Performed By: #### CBC #### [facility] [address] [place] [address] Dr. Shabnam RaeRBC4.54 106/ulCritically low4.70-6.10The [facility] HospitalComment on above:Performed By: #### CBC #### [facility] [address] [place] [address] Dr. Shabnam RaeWBC6.2 103/ulNormal4.0-11.0The [facility] HospitalComment on above: Performed By: #### CBC #### [facility] [address] [address] [address] Shabnam RaeCT ABD/PELV W CONon 52-32-5679LZ ABD/PELV W CONCT ABD/PELV W CON: 01/04/2022 [...] by: MAYRA BERNAL Date: 2022-01-04 05:19Normal The [facility] HospitalCT PELVIS WO CONon [id number] PELVIS WO CONEXAMINATION: CT PELVIS WO CON [...] Electronically authenticated by: MANUEL HOUGH Date: 2022-01-04 08:54NormAdena Pike Medical CenterCULTURE URINEon 02-21-6127VULPBLF URINECulture Observations: No growthNoPomerene HospitalComment on above:Performed By: #### PSASC #### [facility] [address] [address] [address] Shabnam Mckinney-19 PCR ([facility])on 53-81-3053BCMJ-CoV-2 (COVID-19) RNA ELIJAH+probe Ql (Unsp spec)Not detectedNormalNOT DETECTEDThe [facility] Comment on above:Result Comment: When diagnostic testing is negative, the possibility of a false negative should be considered in the context of a patient's recent exposures and the presence of clinical signs and symptoms consistent with SARS-CoV-2. This test is not yet approved or cleared by the [place] Food and Drug Administration (FDA). This test was developed by [employer], [place], [place]. The performance characteristics of this test were validated by [facility]. The results are not intended to be used as the sole means for clinical diagnosis or patient management decisions. [facility] is authorized under Clinical Laboratory [...] for this test is supported by the [place] of Health and Human Service's declaration that [...] longer be used).Performed By: #### CVDTBH #### [facility] [address] [place] [address] Dr. Shabnam Cedillo URINE PROFILEon 26-31-6758Ivhuchkaz Ql (U)NegativeNormal NEGATIVEThe [facility] HospitalComment on above:Performed By: #### PSASC #### [facility] [address] [place] [address] Dr. Shabnam Haile (U)CLEARNormalCLEARThe [facility] HospitalComment on above: Performed By: #### PSASC #### [facility] [address] [place] [address] Dr. Shabnam Mason (U)YELLOWNormalYELLOWMercy Health Urbana Hospital on above: Performed By: #### PSASC #### [facility] [address] [place] [address] Dr. Shabnam Plummer micrscopic examination will be performed if indicated. NormalThe [facility] HospitalComment on above:Performed By: #### PSASC #### [facility] [address] [address] [address] Shabnam RaeGlucose Ql (U)NegativeNormalNEGATIVEVeterans Health AdministrationComment on above:Performed By: #### PSASC #### [facility] [address] [address] [address] Shabnam RaeHemoglobin Ql (U)NegativeNormalNEGATIVEVeterans Health Administration Comment on above:Performed By: #### PSASC #### [facility] [address] [address] [address] Shabnam RaeKetones Ql (U)NegativeNormalNEGATIVEVeterans Health AdministrationComment on above:Performed By: #### PSASC #### [facility] [address] [place] [address] Dr. Shabnam RaeLEUKOCYTESNegativeNormalNEGATIVEVeterans Health AdministrationComment on above:Performed By: #### PSASC #### [facility] [address] [place] [address] Dr. Shabnam RaeNitrite Ql (U)NegativeNormalNEGATIVEVeterans Health AdministrationComment on above:Performed By: #### PSASC #### [facility] [address] [place] [address] Dr. Shabnam RaepH (U)6.5 [pH]Normal5-9Veterans Health AdministrationComment on above: Performed By: #### PSASC #### [facility] [address] [address] [address] Shabnam RaeSPEC GRAVITY1.307Aksjfb8.005-<=1.025Veterans Health AdministrationComment on above:Performed By: #### PSASC #### [facility] [address] [place] [address] Dr. Shabnam RaeUA PROTEINNegativeNormalNEGATIVE/ TRACEVeterans Health Administration Comment on above:Performed By: #### PSASC #### [facility] [address] [place] [address] Dr. Shabnam RaeUR MICRO INDNOT INDICATEDNoalThCleveland Clinic Akron General Lodi HospitalComment on above:Performed By: #### PSASC #### [facility] [address] [place] [address] Dr. Shabnam Wubilinogen Qn (U)0.2 {Sarai'U}/dLNormal0.2 - 1.0The [facility] HospitalComment on above:Performed By: #### PSASC #### [facility] [address] [place] [address] Dr. Shabnam RaeLACTATE/LACTIC ACIDon 88-98-6338Fgfavxa [Moles/Vol]1.0 mmol/L Normal0.4-2.0The [facility] HospitalComment on above:Performed By: #### PSASC #### [facility] [address] [place] [address] Dr. Shabnam MoonF CHEM 8 (BAS METB)on 59-10-5350Ioikm gap [Moles/Vol]10.0 mmol/LNormalThe [facility] HospitalComment on above:Performed By: #### BMP #### [facility] [address] [place] [address] Dr. Shabnam RaeCalcium [Mass/Vol]8.5 mg/dLNormal8.5-10.1[facility] Comment on above:Performed By: #### BMP #### [facility] [address] [place] [address] Dr. Shabnam RaeChloride [Moles/Vol]103 mmol/ZTafilj87-778Yoc [facility] Comment on above:Performed By: #### BMP #### [facility] [address] [place] [address] Dr. Shabnam RaeCO2 [Moles/Vol]29.2 mmol/SPvffgf03.0-32.0[facility] Comment on above:Performed By: #### BMP #### [facility] [address] [place] [address] Dr. Shabnam RaeCreatinine [Mass/Vol]1.25 mg/dLNormal0.70-1.30The [facility] HospitalComment on above:Performed By: #### BMP #### [facility] [address] [place] [address] Dr. Shabnam SamGFR-AF VINCENTIAN>60Normal>=60The [facility] HospitalComment on above:Performed By: #### BMP #### [facility] [address] [place] [address] Dr. Shabnam SamGFR-NON AF VINCENTIAN>60Normal>=60The [facility] HospitalComment on above:Performed By: #### BMP #### [facility] [address] [place] [address] Dr. Shabnam RaeGlucose [Mass/Vol]132 mg/dLCritically smgb89-262Xdl [facility] HospitalComment on above:Performed By: #### BMP #### [facility] [address] [place] [address] Dr. Shabnam RaePotassium [Moles/Vol]3.2 mmol/LCritically low3.5-5.1The [facility] HospitalComment on above:Performed By: #### BMP #### [facility] [address] [place] [address] Dr. Shabnam RaeSodium [Moles/Vol]139 mmol/YWhatbz369-852Atc [facility] Comment on above:Performed By: #### BMP #### [facility] [address] [place] [address] Dr. Shabnam RaeUrea nitrogen [Mass/Vol]19.0 mg/dLCritically high7.0-18.0The [facility] HospitalComment on above:Performed By: #### BMP #### [facility] [address] [place] [address] Dr. Shabnam RaeUrea nitrogen/Creatinine [Mass ratio]15.2 mg/mgNormalThe [facility] HospitalComment on above:Performed By: #### BMP #### [facility] [address] [place] [address] Dr. Shabnam RaeCERVICAL SPINE 2 OR 3 [facility] 09-13-5154WHJVFOYY SPINE 2 OR 3 [facility] Department of Radiology [address] [place] [id number] Patient Name: MATTY GARCES : 1970 [...] findings. Electronically signed by:Bernice Hoyt. Transcribed by: [email or web address], User Resident: RADHA CHIN Electronically Signed by: BERNICE HOYT @ 07/06/2019 08:52 PM I personally read this/these film(s) with this residentRegency Hospital ToledoComment on above:Order Comment: , STAT READ , STAT READ , , , Ordering Provider - LUCIANO DAVIS MD , CERVICAL SPINE 2 OR 3 [facility] [id number] SPINE 2 OR 3 [facility] [address] [place] [id number] Patient Name: MATTY GARCES : 1970 [...] FALLS Exam: CERVICAL SPINE 2 OR 3 [facility] CERVICAL SPINE 2 OR 3 [facility] 04/06/2019 7:28 AM EDT SIGNS AND SYMPTOMS: [...] study. Electronically signed by:Bernice Hoyt. Transcribed by: [email or web address], User Resident: Electronically Signed by: BERNICE HOYT @ 04/06/2019 04:40 [facility] – JacksonComment on above:Order Comment: AP/LAT, ODONTOID PLEASE DO SWIMMER'S VIEW FOLLOW UP HARDWARE AND ALIGNMENT, S/P ACDF, RECENT FALLSCERVICAL SPINE 2 OR 3 [facility] 07-28-8697LLHDLKFS SPINE 2 OR 3 [facility] Department of Radiology [address] [place] [id number] Patient Name: MATTY GARCES : 1970 [...] findings. Electronically signed by:Bella King. Transcribed by: [email or web address], User Resident: KENNETH DUVAL Electronically Signed by: BELLA KING @ 02/20/2019 11:53 AM I personally read this/these film(s) with this residentRegency Hospital ToledoComment on above:Order Comment: C-SPINE 2 OR 3 VIEW POSTOP, EVALUATION HARDWARE AN ALIGNMENTBASIC METABOLIC PANELon 67-44-6232Izrekwa [Mass/Vol]9.2 mg/dLNormal8.6-10.3The [facility] CenterComment on above:Order Comment: No: Do not add to previous drawPerformed By: #### [id number] #### [facility] [address] [place] [address], USAChloride [Moles/Vol]101 mmol/JFghbjz39-173Hqw [facility] CenterComment on above:Order Comment: No: Do not add to previous drawPerformed By: #### [id number] #### [facility] [address] [place] [address], [place]2 [Moles/Vol]26 mmol/FFflhej29-95Qpo [facility] CenterComment on above:Order Comment: No: Do not add to previous draw Performed By: #### [id number] #### [facility] [address] [place] [address], USACreatinine [Mass/Vol]1.02 mg/dLNormal0.70-1.30The [facility] CenterComment on above:Order Comment: No: Do not add to previous drawPerformed By: #### [id number] #### [facility] [address] [place] [address], USAGFR/1.73 sq M predicted among blacks MDRD (S/P/Bld) [Vol rate/Area]mL/min/{1.73_m2}Normal>60[facility] Comment on above:Order Comment: No: Do not add to previous drawPerformed By: #### 48900 #### [facility] [address] [place] [address], USAGFR/1.73 sq M predicted among non-blacks MDRD (S/P/Bld) [Vol rate/Area]mL/min/{1.73_m2}Normal>60[facility] Comment on above:Order Comment: No: Do not add to previous drawPerformed By: #### 76149 #### [facility] [address] [place] [address], USAGlucose [Mass/Vol]124 mg/qBMflw65-784Pwb [facility] CenterComment on above:Order Comment: No: Do not add to previous drawPerformed By: #### 62982 #### [facility] [address] [place] [address], USAPotassium [Moles/Vol]3.9 mmol/LNormal3.5-5.1The [facility] CenterComment on above:Order Comment: No: Do not add to previous drawPerformed By: #### 36078 #### [facility] [address] [place] [address], USASodium [Moles/Vol]137 mmol/BNifyup123-798Yum [facility] CenterComment on above:Order Comment: No: Do not add to previous drawPerformed By: #### 40328 #### [facility] [address] [place] [address], USAUrea nitrogen [Mass/Vol]15 mg/dLNormal7-25The [facility] CenterComment on above:Order Comment: No: Do not add to previous drawPerformed By: #### 02364 #### [facility] [address] [place] [address], USACBC COMPLETE BLOOD COUNTon 46-90-2129Zdnlcaippxc distribution width (RBC) [Ratio]13.9 %Rpenru74.5-15.0The [facility] CenterComment on above:Order Comment: No: Do not add to previous draw Performed By: #### 74932 #### [facility] [address] [place] [address], USAHematocrit (Bld) [Volume fraction]50.0 %Wqrspz47.0-50.0The [facility] CenterComment on above:Order Comment: No: Do not add to previous drawPerformed By: #### 14984 #### [facility] [address] [place] [address], USAHemoglobin (Bld) [Mass/Vol]16.0 g/dOLdbjla37.0-17.0The [facility] CenterComment on above:Order Comment: No: Do not add to previous drawPerformed By: #### 57456 #### [facility] [address] [place] [address], [facility] CENTERMCH (RBC) [Entitic mass]27.5 dwChuyva06.0-33.0The [facility] CenterComment on above:Order Comment: No: Do not add to previous drawPerformed By: #### 69481 #### [facility] [address] [place] [address], [facility] MEDICAL CENTERMCHC (RBC) [Mass/Vol]32.0 g/jEXyehaw15.0-35.0The [facility] CenterComment on above:Order Comment: No: Do not add to previous drawPerformed By: #### 36480 #### [facility] [address] [place] [address], [facility] CENTERMCV (RBC) [Entitic vol]85.9 eLTdzcsu28.0-98.0The [facility] CenterComment on above:Order Comment: No: Do not add to previous drawPerformed By: #### 05339 #### [facility] [address] [place] [address], USANucleated RBC/100 WBC (Bld) [Ratio]0 %Normal0-0The [facility] CenterComment on above:Order Comment: No: Do not add to previous drawPerformed By: #### 79011 #### [facility] [address] [place] [address], USAPLAT QLY757 10*3/pWBnjrqp778-592Ecw [facility] CenterComment on above:Order Comment: No: Do not add to previous draw Performed By: #### 17330 #### [facility] [address] [place] [address], USARBC (Bld) [#/Vol]5.82 10*6/uLHigh4.20-5.70The [facility] CenterComment on above:Order Comment: No: Do not add to previous drawPerformed By: #### 72558 #### [facility] [address] [place] [address], USAWBC (Bld) [#/Vol]15.85 10*3/uLHigh4.00-10.60The [facility] CenterComment on above:Order Comment: No: Do not add to previous drawPerformed By: #### 03001 #### [facility] [address] [place] [address], [facility]ICAL CENTEROperative Reporton [id number] ReportMR#: [id number] I [facility] Pt. Name: Matty Garces Room #: [id number] Discharge Date: Birthdate: 1970 OPERATIVE REPORT DATE OF SURGERY: 01/30/2019 SURGEON: Luciano Davis M.D. 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 POSTOPERATIVE DIAGNOSIS: Failed instrumentation at C6-7 on the right. CITY MAINTENANCE MANAGER: ADENIKE Lugo. ANESTHESIA: Endotracheal, Hogan. PROCEDURES: [...] by: Luciano Davis M.D. 02/02/2019 04:44 P Lcuiano Davis M.D. Date Dict: 01/30/2019/04:52 P/Luciano Davis M.D. Date Trans: 01/31/2019 02:31 Eze/sasha DN_JN:[id number] cc: Venus Jaeger M.D. [address] [place] [address]CrrhihDtgRegency Hospital ToledoCERVICAL SPINE 2 OR 3 Son [id number] SPINE 2 OR 3 [facility] SAN DIEGOniGalion Community Hospital Department of Radiology [address] [place] [phone] Patient Name: MATTY GARCES : 1970 [...] documentation Electronically signed by:Justus Murphy. Transcribed by: [email or web address], User Resident: Electronically Signed by: JUSTUS MURPHY @ 01/30/2019 04:18 PMNormalThe [facility] CenterComment on above:Order Comment: C6-7 ACDFPOC GLUCOSE LABon 46-19-6887Smrhumw [Mass/Vol]106 mg/jVQels41-730Umm [facility] CenterComment on above:Performed By: #### 28261 #### [facility] [address] [facility] [place] [address], [facility]*MRSA/MSSA DNA NASALon 01-23-2019*MRSA/MSSA DNA NASAL Clinical Report: (D) Specimen: NASAL SWAB Collected: 01/23/2019 15:02 Status: Final Last Updated: 01/23/2019 20:14 MSSA DNA (Final) Methicillin Susceptible Staphylococcus aureus DNA Detected MRSA DNA (Final) No Methicillin Resistant Staphylococcus aureus DNA DetectedNoParkview Health Bryan HospitalComment on above:Performed By: #### 05099 #### [facility] [address] [facility] [place] [address], [facility]ICAL CENTERAPTTon 22-15-8937jAMJ Coag (Bld) [Time]35.4 sHigh25.0-35.0 The [facility] CenterComment on above:Result Comment: ALL RESULTS [...] BE USED FOR THIS PURPOSE.Performed By: #### 42578, 96862 #### [facility] [address] [facility] [place] [address], USABASIC METABOLIC PANELon 93-21-9601Rzxawan [Mass/Vol]9.5 mg/dLNormal8.6-10.3The [facility] CenterComment on above: Performed By: #### 85921, 16900 #### [facility] [address] [facility] [place] [address], USAChloride [Moles/Vol]101 mmol/ADczbtd85-218Whb [facility] CenterComment on above:Performed By: #### 19176, 39839 #### [facility] [address] [place] [address], USACO2 [Moles/Vol]29 mmol/IIhqrpb96-13Dgc [facility] CenterComment on above:Performed By: #### 10599, 91253 #### [facility] [address] [place] [address], USACreatinine [Mass/Vol]1.08 mg/dLNormal0.70-1.30The [facility] CenterComment on above:Performed By: #### 68738, 79598 #### [facility] [address] [place] [address], USAGFR/1.73 sq M predicted among blacks MDRD (S/P/Bld) [Vol rate/Area]mL/min/{1.73_m2}Normal>60[facility] Comment on above:Performed By: #### 99656, 11800 #### [facility] [address] [place] [address], USAGFR/1.73 sq M predicted among non-blacks MDRD (S/P/Bld) [Vol rate/Area]mL/min/{1.73_m2}Normal>60[facility] Comment on above:Performed By: #### 66015, 61287 #### [facility] [address] [place] [address], USAGlucose [Mass/Vol]87 mg/jYBctehd14-589Lvw [facility] CenterComment on above:Performed By: #### 69449, 35910 #### [facility] [address] [place] [address], USAPotassium [Moles/Vol]4.0 mmol/LNormal3.5-5.1The [facility] CenterComment on above:Performed By: #### 41496, 03861 #### [facility] [address] [facility] [place] [place] [address], USASodium [Moles/Vol]137 mmol/MJtkojo946-891Wqo [facility] CenterComment on above:Performed By: #### 31867, 44908 #### [facility] [address] [facility] [place] [address], USAUrea nitrogen [Mass/Vol]12 mg/dLNormal7-25The [facility] CenterComment on above:Performed By: #### 15266, 62854 #### [facility] [address] [facility] [place] [address], [facility]ICAL CENTERCBC W/DIFFon 19-70-0110APT BASOPHILS0.1 10*3/uLNormal 0.0-0.2The [facility] CenterComment on above:Performed By: #### 99474, 25292 #### [facility] [address] [facility] [place] [address], USAABS IMM GRANS0.0 10*3/uLNormal0.0-0.2The [facility] CenterComment on above:Performed By: #### 78280, 72932 #### [facility] [address] [facility] [place] [address], USAABS NEUTROPHILS5.3 10*3/uLNormal1.6-7.6The [facility] CenterComment on above:Performed By: #### 81154, 80294 #### [facility] [address] [facility] [place] [address], USABasophils/100 WBC (Bld)0.9 %Normal0.0-1.0The [facility] CenterComment on above:Performed By: #### 37334, 25000 #### [facility] [address] [facility] [place] [address], USAEosinophils (Bld) [#/Vol]0.2 10*3/uLNormal0.0-0.5The [facility] CenterComment on above:Performed By: #### 02629, 50555 #### [facility] [address] [place] [address], USAEosinophils/100 WBC (Bld)2.3 %Normal0.0-6.0The [facility] CenterComment on above:Performed By: #### 98853, 23287 #### [facility] [address] [place] [address], USAErythrocyte distribution width (RBC) [Ratio]13.8 %Normal 11.5-15.0The [facility] CenterComment on above:Performed By: #### 36881, 75973 #### [facility] [address] [place] [address], USAHematocrit (Bld) [Volume fraction]49.6 %Ctcxxa57.0-50.0The [facility] CenterComment on above:Performed By: #### 63769, 96083 #### [facility] [address] [place] [address], USAHemoglobin (Bld) [Mass/Vol]16.4 g/nLBacakc80.0-17.0The [facility] CenterComment on above:Performed By: #### 60607, 59916 #### [facility] [address] [place] [address], USAIMMATURE GRANS0.5 %Normal0.0-1.0The [facility] CenterComment on above:Performed By: #### 24955, 66036 #### [facility] [address] [place] [address], USALymphocytes (Bld) [#/Vol]1.2 10*3/uLNormal1.2-4.0The [facility] CenterComment on above:Performed By: #### 36618, 71296 #### [facility] [address] [place] [address], USALymphocytes/100 WBC (Bld)16.6 %Low20.0-45.0The [facility] CenterComment on above:Performed By: #### 27109, 37975 #### [facility] [address] [place] [address], [facility] – MCALESTERH (RBC) [Entitic mass]27.8 jnXmajyz87.0-33.0The [facility] CenterComment on above:Performed By: #### 04644, 02140 #### [facility] [address] [facility] [place] [address], [facility] CENTERMCHC (RBC) [Mass/Vol]33.1 g/nXEbhacu79.0-35.0The [facility] CenterComment on above:Performed By: #### 44148, 89247 #### [facility] [address] [facility] [place] [address], [facility] CENTERMCV (RBC) [Entitic vol]84.2 fKKewsjq51.0-98.0The [facility] CenterComment on above:Performed By: #### 92582, 70452 #### [facility] [address] [facility] [place] [place] [address], USAMonocytes (Bld) [#/Vol]0.7 10*3/uLNormal0.1-1.0The [facility] CenterComment on above:Performed By: #### 77911, 92684 #### [facility] [address] [facility] [place] [address], USAMONOS9.4 %Normal5.0-12.0The [facility] CenterComment on above:Performed By: #### 02998, 54693 #### [facility] [address] [facility] [place] [address], USANeutrophils/100 WBC (Bld)70.3 %Psnrru90.0-72.0The [facility] CenterComment on above:Performed By: #### 73534, 00608 #### [facility] [address] [place] [address], USANucleated RBC/100 WBC (Bld) [Ratio]0 %Normal0-0The [facility] CenterComment on above:Performed By: #### 61478, 71610 #### [facility] [address] [place] [address], USAPLAT VNZ308 10*3/xTSqyufo657-422Sow [facility] CenterComment on above:Performed By: #### 68461, 28028 #### [facility] [address] [facility] [place] [address], USARBC (Bld) [#/Vol]5.89 10*6/uLHigh4.20-5.70The [facility] CenterComment on above:Performed By: #### 67916, 44497 #### [facility] [address] [facility] [place] [address], USAWBC (Bld) [#/Vol]7.48 10*3/uLNormal4.00-10.60The [facility] CenterComment on above:Performed By: #### 93816, 96924 #### [facility] [address] [place] [address], USAPROTHROMBIN TIMEon 92-90-2838ANS Coag (PPP) [Relative time] 1.12 {INR}Normal0.91-1.16The [facility] CenterComment on above:Result Comment: ACCCP RECOMMENDED [...] OPTIMAL THERAPEUTIC RANGE. CHEST 1995;108:231S-246S.Performed By: #### 99240, 04177 #### [facility] [address] [facility] [address], USAPT Coag (PPP) [Time]14.4 tRpcbnl00.3-14.8The [facility] CenterComment on above:Result Comment: ALL RESULTS MUST BE INTERPRETED WITH RESPECT TO BLOOD DRAWING ARTIFACT OR DILUTION ERROR OF ANTICOAGULANT AT THE TIME OF SAMPLING.Performed By: #### 12464, 25950 #### [facility] [address] [facility] [place] [address], USATYPE AND SCREENon 23-31-5086WQB INTERPRETATIONANoParkview Health Bryan HospitalComment on above:Performed By: #### 37149, 55991 #### [facility] [address] [facility] [place] [address], USARH INTERPRETATIONPositiveNoParkview Health Bryan HospitalComment on above:Performed By: #### 79529, 30314 #### [facility] [address] [facility] [place] [address], USACT 3D CERVICAL SPINE WO CONTRASTon 06-04-9983UN 3D CERVICAL SPINE WO CONTRASTUnCleveland Clinic Mercy [facility] Department of Radiology [address] [place] [address] Patient Name: MATTY GARCES : 1970 Sex: M Age: Race: White Pt. Location: 85 Patient Status: D Ordered Date: 01/10/2019 2:15:00 PM Completed Date: 01/12/2019 10:32 AM Requesting Provider: LUCIANO DAVIS Attending Provider: LUCIANO DAVIS Report Copy To: VENUS JAEGER Signs & Symptoms: M48.02 Spinal stenosis, cervical region I10 History: Stanton para auth # [id number] 01/10/19-02/09/19 19398 *er Comments: Exam: CT 3D CERVICAL SPINE [...] incomplete Electronically signed by:Ten Uriarte. Transcribed by: [email or web address], User Resident: Electronically Signed by: TEN URIARTE @ 01/13/2019 09:18 [facility] HospitalCERVICAL SPINE 2 OR 3 [facility] 01-05-2019 CERVICAL SPINE 2 OR 3 SUniGal[facility] Department of Radiology [address] [place] [phone] Patient Name: MATTY GARCES : 1970 Sex: M Age: Race: White Pt. Location: Patient Status: O Ordered Date: 01/05/2019 9:00:00 AM Completed Date: 01/05/2019 09:06 AM Requesting Provider: LUCIANO DAVIS Attending Provider: LUCIANO DAVIS Report Copy To: Signs & Symptoms: M48.02 Spinal stenosis, cervical region I10 History: Stanton Comments: , , , Ordering Provider - LUCIANO DAVIS MD , Exam: CERVICAL SPINE 2 OR 3 [facility] CERVICAL SPINE 2 OR 3 [facility] 01/05/2019 [...] findings. Electronically signed by:Ten Uriarte. Transcribed by: [email or web address], User Resident: SHELLY DELA CRUZ Electronically Signed by: TEN URIARTE @ 01/05/2019 12:37 PM I personally read this/these film(s) with this residentRegency Hospital ToledoComment on above:Order Comment: , , , Ordering Provider - LUCIANO DAVIS MD , CERVICAL SPINE 2 OR 3 [facility] 95-07-2097MQVGSNLV SPINE 2 OR 3 [facility]UniGal[facility] Department of Radiology [address] [place] [phone] Patient Name: MATTY GARCES : 1970 Sex: M Age: Race: White Pt. Location: 85 Patient Status: O Ordered Date: 08/30/2018 9:35:00 AM Completed Date: 08/30/2018 09:43 AM Requesting Provider: LUCIANO DAVIS Attending Provider: LUCIANO DAVIS Report Copy To: VENUS JAEGER Signs & Symptoms: M50.90 Cervical disc disorder, unsp, unspecified cervical region I10 History: Stanton Comments: , POST OP XRAY AP/LAT ONLY [...] findings. Electronically signed by:Bella King. Transcribed by: [email or web address], User Resident: RYAN ANDERSON Electronically Signed by: BELLA KING @ 08/30/2018 05:45 PM I personally read this/these film(s) with this residentRegency Hospital ToledoComment on above:Order Comment: , POST OP XRAY AP/LAT ONLY , POST OP XRAY AP/LAT ONLY , , , Ordering Provider - LUCIANO DAVIS MD , Operative Reporton [id number] ReportMR#: [id number] I [facility] Pt. Name: Matty Garces Room #: 5CD [id number] Discharge Date: Birthdate: 1970 OPERATIVE REPORT DATE OF SURGERY: 08/17/2018 SURGEON: Lucinao Davis M.D. PREOPERATIVE DIAGNOSIS: Herniated cervical disk at C6-7. POSTOPERATIVE DIAGNOSIS: Herniated cervical disk at C6-7. CITY MAINTENANCE MANAGER: ADENIKE Larios. ANESTHESIA: Endotracheal, Braida. PROCEDURE: [...] Davis M.D. Date Trans: 08/17/2018 11:25 P/sasha DN_JN:[id number] cc: Venus Jaeger M.D. [address] [place] [address]TdlrthIgfRegency Hospital ToledoCERVICAL SPINE 2 OR 3 VWSon 14-30-6995DUZXCUZX SPINE 2 OR 3 [facility] SAN DIEGOniGalion Community Hospital Department of Radiology [address] [place] [address] Patient Name: MATTY GARCES : [...] findings. Electronically signed by:Bernice Hoyt. Transcribed by: [email or web address], User Resident: KENNETH DUVAL Electronically Signed by: BERNICE HOYT @ 08/18/2018 01:06 PM I personally read this/these film(s) with this [facility] HospitalComment on above:Order Comment: C6-7 ACDF with POC GLUCOSE LABon 42-08-6123Ynwwwuj [Mass/Vol]113 mg/eJIxux85-177PogUC West Chester HospitalComment on above:Performed By: #### 20748 #### [facility] [address] [place] [address], USARBC'S 2 UNITSon 79-58-0419HRTEGAGWGI INTERP 1COhio State Health SystemComment on above:Performed By: #### 75362 #### [facility] [address] [place] [address], USACROSSMATCH INTERP 2COhio State Health SystemComment on above:Performed By: #### 90326 #### [facility] [address] [place] [address], USAPRODUCT CODE [id number] Hospital ToledoComment on above:Performed By: #### 24647 #### [facility] [address] [place] [address], USAPRODUCT CODE [id number] Hospital ToledoComment on above:Performed By: #### 29149 #### [facility] [address] [place] [address], USAPRODUCT STATUS 1RBlanchard Valley Health System Bluffton HospitalComment on above:Result Comment: Result changed by IF on 08/20/2018 07:48. The previous value was XM.Performed By: #### 31772 #### [facility] [address] [place] [address], USAPRODUCT STATUS 2RBlanchard Valley Health System Bluffton HospitalComment on above:Result Comment: Result changed by IF on 08/20/2018 07:48. The previous value was XM.Performed By: #### 24187 #### [facility] [address] [place] [address], USAUNIT ABO 1ARegency Hospital Toledo Comment on above:Performed By: #### 29694 #### [facility] [address] [place] [address], USAUNIT ABO 2ARegency Hospital Toledo Comment on above:Performed By: #### 01574 #### [facility] [address] [place] [address], USAUNIT ID [id number] West Chester HospitalComment on above:Performed By: #### 82628 #### [facility] [address] [place] [address], USAUNIT ID [id number] Hospital ToledoComment on above:Performed By: #### 11348 #### [facility] [address] [place] [address], USAUNIT RH 1PosiMercy Health Allen HospitalComment on above:Performed By: #### 71491 #### [facility] [address] [place] [address], USAUNIT RH 2PositiveRegency Hospital ToledoComment on above:Performed By: #### 90358 #### [facility] [address] [place] [address], [place]*MRSA/MSSA CULTUREon 08-02-2018*MRSA/MSSA CULTUREClinical Report: (D) Specimen: NASAL SWAB Collected: 08/02/2018 12:37 Status: Final Last Updated: 08/03/2018 14:26 ISO (Final) No Methicillin Resistant Staphylococcus aureus Isolated (MRSA) ISO (Final) Methicillin Sensitive Staphylococcus aureus (MSSA) IsolatedNoParkview Health Bryan HospitalComment on above:Performed By: #### 95086 #### [facility] [address] [facility] [place] [address], [facility]ICAL CENTERAPTTon 91-68-5419xNEY Coag (Bld) [Time]31.2 sNormal 25.0-35.0The [facility] CenterComment on above:Result Comment: ALL RESULTS [...] BE USED FOR THIS PURPOSE.Performed By: #### 04259, 40391 #### [facility] [address] [facility] [place] [address], [facility]ICAL CENTERBASIC METABOLIC PANELon 61-26-7054Axyczqe [Mass/Vol]9.4 mg/dLNormal8.6-10.3The [facility] CenterComment on above: Performed By: #### 24346 #### [facility] [address] [facility] [place] [place] [address], USAChloride [Moles/Vol]103 mmol/KJselwc35-693Ved [facility] CenterComment on above:Performed By: #### 42738 #### [facility] [address] [facility] [place] [address], USACO2 [Moles/Vol]29 mmol/WLmteus14-21Jfq [facility] CenterComment on above:Performed By: #### 53502 #### [facility] [address] [facility] [place] [address], USACreatinine [Mass/Vol]1.06 mg/dLNormal0.70-1.30The [facility] CenterComment on above:Performed By: #### 22222 #### [facility] [address] [place] [address], USAGFR/1.73 sq M predicted among blacks MDRD (S/P/Bld) [Vol rate/Area]mL/min/{1.73_m2}Normal>60The [facility] Comment on above:Performed By: #### 65133 #### [facility] [address] [facility] [place] [address], USAGFR/1.73 sq M predicted among non-blacks MDRD (S/P/Bld) [Vol rate/Area]mL/min/{1.73_m2}Normal>60The [facility] Comment on above:Performed By: #### 68580 #### [facility] [address] [place] [address], USAGlucose [Mass/Vol]84 mg/vGLhclip55-992Xiq [facility] CenterComment on above:Performed By: #### 30970 #### [facility] [address] [facility] [place] [address], USAPotassium [Moles/Vol]4.0 mmol/LNormal3.5-5.1The [facility] CenterComment on above:Performed By: #### 61617 #### [facility] [address] [place] [address], USASodium [Moles/Vol]140 mmol/VHcjlnd196-718Cvu [facility] CenterComment on above:Performed By: #### 86228 #### [facility] [address] [place] [address], USAUrea nitrogen [Mass/Vol]20 mg/dLNormal7-25The [facility] CenterComment on above:Performed By: #### 45575 #### [facility] [address] [facility] [place] [address], [facility] CENTERCBC W/DIFFon 45-60-4208VKB BASOPHILS0.1 10*3/uLNormal 0.0-0.2The [facility] CenterComment on above:Performed By: #### 00368 #### [facility] [address] [facility] [place] [place] [address], [place]AABS IMM GRANS0.1 10*3/uLNormal0.0-0.2The [facility] CenterComment on above:Performed By: #### [id number] #### [facility] [address] [facility] [place] [address], [facility] CENTERABS NEUTROPHILS4.2 10*3/uLNormal1.6-7.6The [facility] CenterComment on above:Performed By: #### [id number] #### [facility] [address] [facility] [place] [address], [facility] CENTERBasophils/100 WBC (Bld)1.3 %High0.0-1.0The [facility] CenterComment on above:Performed By: #### [id number] #### [facility] [address] [facility] [place] [address], [facility]ICAL CENTEREosinophils (Bld) [#/Vol]0.1 10*3/uLNormal0.0-0.5The [facility] CenterComment on above:Performed By: #### [id number] #### [facility] [address] [facility] [place] [address], USAEosinophils/100 WBC (Bld)2.0 %Normal0.0-6.0The [facility] CenterComment on above:Performed By: #### [id number] #### [facility] [address] [facility] [facility] [place] [address], USAErythrocyte distribution width (RBC) [Ratio]13.6 %Normal 11.5-15.0The [facility] Medical CenterComment on above:Performed By: #### [id number] #### [facility] [address] [place] [address], USAHematocrit (Bld) [Volume fraction]44.3 %Ylupik74.0-50.0The [facility] CenterComment on above:Performed By: #### 78090 #### [facility] [address] [place] [address], USAHemoglobin (Bld) [Mass/Vol]15.1 g/pOUasiou83.0-17.0The [facility] CenterComment on above:Performed By: #### 49494 #### [facility] [address] [facility] [place] [address], USAIMMATURE GRANS1.1 %High0.0-1.0The [facility] CenterComment on above:Performed By: #### [id number] #### [facility] [address] [place] [address], USALymphocytes (Bld) [#/Vol]1.2 10*3/uLNormal1.2-4.0The [facility] CenterComment on above:Performed By: #### 14275 #### [facility] [address] [place] [address], USALymphocytes/100 WBC (Bld)18.3 %Low20.0-45.0The [facility] CenterComment on above:Performed By: #### 01808 #### [facility] [address] [facility] [place] [address], USAMCH (RBC) [Entitic mass]29.0 atPilxdl38.0-33.0The [facility] CenterComment on above:Performed By: #### 05833 #### [facility] [address] [place] [address], USAMCHC (RBC) [Mass/Vol]34.1 g/aMEzmvzy16.0-35.0The [facility] CenterComment on above:Performed By: #### [id number] #### [facility] [address] [place] [address], USAMCV (RBC) [Entitic vol]85.0 iCGstxfx32.0-98.0The [facility] CenterComment on above:Performed By: #### 01180 #### [facility] [address] [place] [address], USAMonocytes (Bld) [#/Vol]0.7 10*3/uLNormal0.1-1.0The [facility] CenterComment on above:Performed By: #### 48311 #### [facility] [address] [place] [address], URZLQCYF00.1 %Normal5.0-12.0The [facility] CenterComment on above:Performed By: #### 47784 #### [facility] [address] [place] [address], USANeutrophils/100 WBC (Bld)66.2 %Xcvxux38.0-72.0The [facility] CenterComment on above:Performed By: #### 27008 #### [facility] [address] [place] [address], USANucleated RBC/100 WBC (Bld) [Ratio]0 %Normal0-0The [facility] CenterComment on above:Performed By: #### 55580 #### [facility] [address] [place] [address], USAPLAT IHM230 10*3/zMOxeovl241-850Zeb [facility] CenterComment on above:Performed By: #### 79383 #### [facility] [address] [place] [address], USARBC (Bld) [#/Vol]5.21 10*6/uLNormal4.20-5.70The [place] [facility] [place] Medical CenterComment on above:Performed By: #### 75162 #### [address] [address], [facility]ICAL CENTERWBC (Bld) [#/Vol]6.39 10*3/uLNormal4.00-10.60The [facility] CenterComment on above:Performed By: #### 52712 #### [facility] [address] [place] [address], USACERVICAL SPINE 4 OR 5 VIEWSon 08-07-0132EDTPRDNT SPINE 4 OR 5 VIEWSUnCleveland [facility] Department of Radiology [address] [place] [id number] Patient Name: MATTY GARCES : 1970 [...] findings. Electronically signed by:Bella King. Transcribed by: [email or web address], User Resident: KENNETH DUVAL Electronically Signed by: BELLA KING @ 08/03/2018 11:58 AM I personally read this/these film(s) with this residentNoParkview Health Bryan HospitalComment on above:Order Comment: , PREOP XRAY AP/LAT \EANDE\ FLEX/EX , PREOP XRAY AP/LAT \EANDE\ FLEX/EX , , , Ordering Provider - LUCIANO DAVIS MD , PROTHROMBIN TIMEon 29-23-5594XRW Coag (PPP) [Relative time]1.15 {INR}Normal0.91-1.16[facility] Comment on above:Result Comment: ACCCP [...] OPTIMAL THERAPEUTIC RANGE. CHEST 1995;108:231S-246S.Performed By: #### [id number], [id number] #### [facility] [address] [facility] [place] [address], [facility] MEDICAL CENTERPT Coag (PPP) [Time]14.7 wNfopwx31.3-14.8The [facility] Medical CenterComment on above:Result Comment: ALL RESULTS MUST BE INTERPRETED WITH RESPECT TO BLOOD DRAWING ARTIFACT OR DILUTION ERROR OF ANTICOAGULANT AT THE TIME OF SAMPLING.Performed By: #### 10573, [id number] #### [facility] [address] [facility] [place] [address], [facility] CENTERTYPE AND SCREENon 46-57-8933KIS INTERPRETATIONANoParkview Health Bryan HospitalComment on above:Order Comment: 2 units 2 units 2 units 2 units 2 unitsPerformed By: #### 42467 #### [facility] [address] [facility] [place] [address], USARH INTERPRETATIONPositiveNoParkview Health Bryan HospitalComment on above:Order Comment: 2 units 2 units 2 units 2 units 2 unitsPerformed By: #### 22362 #### [facility] [address] [facility] [place] [address], USAURINALYSIS REFLEXon 23-04-1684Kmlybdybti (U)CLEARNormal CLEARThe [facility] Medical CenterComment on above:Performed By: #### 89164 #### [facility] [address] [place] [address], USABilirubin [Mass/Vol]NegativeNormalNEGATIVEThe [facility] Medical CenterComment on above:Performed By: #### 37015 #### [facility] [address] [place] [address], USABLOODNegativeNormalNEGATIVEThe [facility] Medical CenterComment on above:Performed By: #### 85753 #### [facility] [address] [place] [address], USAColor (U)YELLOWNormalYELLOWThe [facility] Medical CenterComment on above:Performed By: #### 03982 #### [facility] [address] [place] [address], USAGlucose [Mass/Vol]150 mg/dLAbnormalNEGATIVEThe [facility] Medical CenterComment on above:Performed By: #### 42517 #### [facility] [address] [place] [address], USAKETONENegativeNormalNEGATIVEThe [facility] Medical CenterComment on above:Performed By: #### 78416 #### [facility] [address] [place] [address], USALEUK ESTERNegativeNormalNEGATIVEThe [facility] Medical CenterComment on above:Performed By: #### 56521 #### [facility] [address] [place] [address], USAMICRO NOT DONEnegative chemical reactions unless requested in original orderNormalThe [facility] Medical CenterComment on above: Performed By: #### 05827 #### [facility] [address] [place] [address], USANitrite Ql (U)NegativeNormalNEGATIVEThe [facility] Medical CenterComment on above:Performed By: #### 70909 #### [facility] [address] [facility] [place] [address], [facility] MEDICAL CENTERpH (Bld)5.0Tpqwzf2.0-8.0The [facility] CenterComment on above:Performed By: #### 16618 #### [facility] [address] [place] [address], [facility] CENTERProtein (U) [Mass/Vol]NegativeNormalNEGATIVEThe [facility] Medical CenterComment on above:Performed By: #### 42852 #### [facility] [address] [facility] [place] [address], USASPEC GRAV1.964Znwy4.015-1.020The [facility] Medical CenterComment on above:Performed By: #### 14389 #### [facility] [address] [place] [address], [facility] Vital Signs Date TimeVital SignValuePerforming HjqeesjssUzellzwm69-60-5670 15:09-0400Body ofhgtw712 cmJafortino Rainey 7TH GRADE TEACHER Work Phone: [facility] HospitalNpjfaofmlw71-31-7710 15:09-0400Body mass index (BMI) [Ratio]34.92 kg/w2StynoysnqdHeather Rainey 7TH GRADE TEACHER Work Phone: [facility] HospitalQbpkvhvamc64-75-9623 15:09-0400Body .38 kgJafortino Rainey 7TH GRADE TEACHER Work Phone: [facility] HospitalPxsfuofcov21-51-4038 15:09-0400Diastolic blood atjtydhu78 mm[Hg]Heather Rainey 7[employer] GRADE TEACHER Work Phone: [facility] HospitalImuyttnold77-51-9537 15:09-0400Systolic blood hocnjokx541 mm[Hg]Heather Rainey 7[employer] GRADE TEACHER Work Phone: [facility] HospitalAmwwfmrria84-78-3796 11:03-0400Body qtpubk597 cm Rubén Geiger MD Work Phone: [facility] HospitalBdhnyucabk63-82-4755 11:03-0400Body mass index (BMI) [Ratio]34.02 kg/o3NbzwxquRubén Geiger MD Work Phone: [phone] HospitalHfblgksgsz40-51-8227 11:03-0400Body eifosb196.2 kgRubén Geiger MD Work Phone: [phone] [place], [place] [address]Oybqnfjcii80-80-4414 11:03-0400Diastolic blood xkrulsra52 mm[Hg]Rubén Geiger MD Work Phone: [phone] [place], [place] [address]Emlrysfgme18-22-3197 11:03-0400Heart khcf177 /min Rubén Geiger MD Work Phone: [phone] [place], [place] [address]Qaqgrkszpk66-09-1843 11:03-0400Systolic blood mm[Hg]Rubén Geiger MD Work Phone: [phone] [place], [place] [address]Nhrhqiccrl71-14-9820 14:44-0400Body cm Rubén Geiger MD Work Phone: [phone] [place], [place] [address]Lfrlowemgz35-01-4373 14:44-0400Body mass index (BMI) [Ratio]35.31 kg/r4QmubtdsRubén Geiger MD Work Phone: [phone] HospitalQnxikbphcr57-97-1984 14:44-0400Body cqibuj655.74 kgRubén Geiger MD Work Phone: [facility] HospitalXtrlwlgsbc61-27-9514 14:45-0400Body ovwnfs112 cm Rubén Geiger MD Work Phone: [facility] HospitalWoqkkpctsl00-08-5136 14:45-0400Body mass index (BMI) [Ratio]37.62 kg/p5EmgxhujRubén Geiger MD Work Phone: [facility] HospitalNxiblevbft31-52-3986 14:45-0400Body vyvbtb570.9 kgRubén Geiger MD Work Phone: [facility] HospitalYyoxzllyzp24-15-0863 10:30-0400Blood Pressure LocationKatCritical access hospitale [facility] 06-15-2022 10:30-0400Diastolic blood mm[Hg] Viola Lue [facility] 06-15-2022 10:30-0400Heart rate74 /minKathy Lue [facility] 06-15-2022 10:30-0400Respiratory rate16 /minKathy Lue [facility] 06-15-2022 10:30-0400Systolic blood iftluxzt879 mm[Hg] Viola Lue [facility] Encounters Encounter DateEncounter TypeCare ProviderFacilityStart: 07-13-2025 End: 79-74-0536Uexajo outpatient visit 25 minutesHeather Rainey 7TH GRADE TEACHER Work Phone: noms [place] [facility] NeurologyComment on above:Excessive daytime sleepiness; Obstructive sleep apneaStart: 07-13-2025 End: 83-75-7347lynwflhaifWWPTKVSNZC M GRAZIANINot AvailableStart: 07-13-2025 End: 86-89-2450Shnjum flowsheetHeather Rainey 7[employer] GRADE TEACHER Work Phone: noms NEUROLOGYStart: 07-13-2025 End: 32-73-7875Dlhpeg flowsheetHeather Rainey 7[employer] GRADE TEACHER Work Phone: noms NEUROLOGYStart: 06-20-2025 End: 19-23-4732wekfhqakttMloidxl M Hoy MD Work Phone: [facility] Work Phone: Start: 06-20-2025 End: 81-68-7128Lsyprogo ReferredRafik Massouh MD-LAB [facility] Start: 05-29-2025 End: 27-06-7366Sehuzrw encounter procedureJustnamita Eze Pauly DO-CT Scan [facility] Work Phone: Start: 05-29-2025 End: 50-45-5387ircmiacwzrSprocqa M Hoy MD Work Phone: [facility] Work Phone: Start: 05-15-2025 End: 53-80-6020XqwbotNelkfbbeyr M Graziani NP Work Phone: noms [place] NeurologyComment on above:Excessive daytime sleepiness; Primary insomniaExcessive daytime sleepiness; Obstructive sleep apneaStart: 05-07-2025 End: 69-24-3846zbqymnubrzIkwvycj M Hoy MD Work Phone: [facility] Work Phone: Start: 05-07-2025 End: 48-72-8086Smxumka encounter procedureJustnamita Eze Pauly DO-[facility] Work Phone: Start: 04-04-2025 End: 45-53-6247Jyteqksilviano Geiger MD Work Phone: noms NEUROLOGYStart: 04-04-2025 End: 92-17-8765Sssammsilviano Geiger MD Work Phone: noms BM NEUROLOGYStart: 04-04-2025 End: 34-57-8935Fxiabi outpatient visit 25 minutesBremuriel Geiger MD Work Phone: noms SWS NEURComment on above:Narcolepsy cataplexy syndrome (HCC) (Primary Dx); Excessive daytime sleepiness; Cervical disc disorder; Intractable chronic migraine with aura with status migrainosusStart: 04-04-2025 End: 91-58-7881jshkwcfyktEIQCWYE W BAUERNot AvailableStart: 03-05-2025 End: 76-39-7589Oqdajtjpg Result EncounterAmy [place] PA Work Phone: noms External Department UnsolicitedStart: 03-05-2025 End: 25-00-9119Gnwfbvutv Result EncounterJess HOYOS Work Phone: noms External Department UnsolicitedStart: 01-03-2025 End: 13-98-9998Jszxcs outpatient visit 25 minutesRubén Geiger MD Work Phone: noms SWS NEURComment on above:Primary narcolepsy with cataplexy (CMS/HCC) (Primary Dx); Excessive daytime sleepiness; Obstructive sleep apneaStart: 01-03-2025 End: 86-95-1758ndoxnrzfnlSTSOSNX W BAUERNot AvailableStart: 01-03-2025 End: 53-92-0390Yzgidycaesar Geiger MD Work Phone: noms NEUROLOGYStart: 01-03-2025 End: 95-36-5705Zuqtvqcaesar Geiger MD Work Phone: noms BM NEUROLOGYStart: 12-11-2024 End: 20-92-0520vyxlyzcdcwXQOSKKH W BAUERNot AvailableStart: 12-11-2024 End: 49-34-9159Qrenfu outpatient visit 25 minutesRubén Geiger MD Work Phone: noms SWS NEURComment on above:Cubital tunnel syndrome on right (Primary Dx); Cervical paraspinal muscle spasm; Degeneration of intervertebral disc of lumbosacral region with discogenic back pain and lower extremity pain; Narcolepsy cataplexy syndrome (CMS/HCC)Start: 11-14-2024 End: 47-63-8993Wazftmykd Jeff Mason EEG. T. Other Phone: noms SWS NEURStart: 10-12-2024 End: 78-09-8648Fdshrhnys encounterHeather Rainey NP Work Phone: noms [facility] NEURO 210Start: 03-39-0478Ctpaiiiljc and management of inpatientCHRISTOPHER [facility] Start: 10-08-2024 End: 28-09-8302Llzbsstqgi and management of inpatientJACK [facility] Centertart: 10-02-2024 End: 52-82-3409EntfnhYwmichd Peterson LPNNOMS SV NEURO 210Comment on above: Excessive daytime sleepiness; Obstructive sleep apneaStart: 06-48-8253Ogayvbrsht and management of inpatient MARIANNA ROBERTSRegency Hospital Cleveland Easttart: 31-79-5445Vbextsbqky and management of inpatientBRANTLEY HINDERSUniGalion Community Hospital Start: 26-30-0768Rzopjijzlz and management of inpatientJAMIE [facility] Limatart: 78-68-7324Vtvjyzfqvk and management of inpatient SHIN [facility]art: 85-03-3341Dtyjmwbfyn and management of inpatientABDUL MUSTAPHAUniSumma Healthtart: 90-18-6892Vnckozyzct and management of inpatientRACHEL [facility] Companytart: 57-94-5590Eabstmfvp department patient visitJAMIE [facility] Limatart: 03-27-6174Kpiiplaph department patient visitJAMIE [facility] Limatart: 09-23-2024 Emergency department patient visitRACHEL [facility] Companytart: 09-23-2024 End: 31-00-5588Toerqvtkse and management of inpatientJEFFERY KATKORegency Hospital Cleveland Easttart: 09-21-2024 End: 11-94-2561vccssxaidhTmwuf D [facility] Work Phone: Start: 09-21-2024 End: 05-12-5849Yrdozihd ReferredBradford Regional Medical Center DPM Work Phone: [facility]-LAB [facility] [place] HospStart: 07-04-2024 End: 56-25-5165Sehezmxux encounterRubén Geiger MD Work Phone: noms SVH NEURO 210Start: 07-03-2024 End: 91-91-1744Mzfqkf outpatient visit 25 minutesRubén Geiger MD Work Phone: noms SWS NEURComment on above:Excessive daytime sleepiness (Primary Dx); Obstructive sleep apnea; Primary insomnia; Cubital tunnel syndrome on rightStart: 07-03-2024 End: 79-23-8796Ejduph Anastasiya Geiger MD Work Phone: noms BM NEUROLOGYStart: 07-03-2024 End: 41-76-4077Ustdqj Anastasiya Geiger MD Work Phone: noms NEUROLOGYStart: 05-10-2024 End: 49-12-7189FwxecsUnijipc W Bauer MD Work Phone: noms SWS NEURComment on above:Primary insomniaStart: 01-03-2024 End: 92-62-0134geqkqbyindUHZ Trey [facility] Work Phone: [facility] Work Phone: Start: 01-03-2024 End: 06-58-3425Beuamqvb ReferredDPM Trey [facility] Work Phone: [facility]-LAB [facility] [place] HospStart: 11-29-2023 End: 14-41-5404uzxnifyxuyBkjtksw Vytautas Giedraitis MDFacility:PM Toño Start: 10-18-2023 End: 79-28-5358mvxfnjbizhFxxokaq Vytautas Giedraitis MDFacility:PM [facility] Start: 08-30-2023 End: 92-93-3137jzthjfcokdUaxaydk Vytautas Giedraitis MDFacility:[facility] [place] Start: 07-12-2023 End: 18-95-4456jourzpbjldYxanfqs Vytautas Giedraitis MDFacility:[facility] [place] Start: 06-14-2023 End: 85-45-2943oawktvoxktMxafcby Vytautas Giedraitis MDFacility:[facility] [place] Start: 12-06-2022 End: 84-11-6115hjerfhstcgYT VENUS HOY .Facility:H3Caini: 44-38-7800Osvaeearr for general adult medical examination without abnormal findingsDR VENUS HOY . [facility]Start: 12-01-2022 End: 32-88-9213gkyeuxpngxDG VENUS HOY .Facility:J7Zfwgk: 12-01-2022 End: 13-50-8362Cvfqlpmcw for general adult medical examination without abnormal findingsDR VENUS HOY .Facility:T7Nghmu: 07-10-2022 End: 32-04-1009wigfgmgtfwDS VENUS HOY .Facility:P2Wwuzb: 03-26-2022 End: 21-12-2801howyixephyGP VENUS HOY .Facility:G9Nvucm: 03-13-2022 End: 89-41-9621rwbasjeeczJK VENUS HOY .Facility:A6Ocerb: 02-25-2022 End: 30-07-7221Cbnbtkg encounter procedureViola Grullon [facility] start: 01-04-2022 End: 87-57-4534znsqpawubaTN VENUS HOY .Facility:P9Ijjzk: 01-30-2019 End: 12-66-0669Umiqefztji and management of inpatientPROVIDER UNKNOWN Facility:[facility]ENTERtart: 08-17-2018 End: 57-16-7178Dbszbsn encounter procedurePROVIDER UNKNOWNFacility:[facility] Procedures DateProcedureProcedure DetailPerforming ClinicianStart: 92-55-7637BH of lower leg without contrastVenus Jaeger MD Work Phone: Start: 80-12-3112JFR 12-LEADAmy Garry HOYOS Work Phone: Start: 45-58-2457NZE screeningDR VENUS HOY .Comment on above:Performed By: #### PSASC #### [facility] [address] [address] [address] Shabnam RaeStart: 62-23-5227OJMPTF CERV JT W INTBD FUS DEV, ANT APPR A COL, OPENAZEDINE MEDHKOURStart: 66-33-7563WCPOIWC OF INT FIX FROM CERVCAL VERTEBRA, OPEN APPROACHAZEDINE MEDHKOURStart: 32-02-4480Vvrunfuy screenPROVIDER UNKNOWN Comment on above:Performed By: #### [id number], [id number] #### [facility] [address] [facility] [place] [place] [address], USAStart: 98-80-4836UVRSFU SPINE CORD SURGERYANTHONY BRAIDA Start: 88-64-8074UIFMDO SPINE FIXATION DEVICEAZEDINE MEDHKOURStart: 08-17-2018 NECK SPINE FUSE\T\REMOV BEL I2ANKIPAG MEDHKOURStart: 39-98-8035BP BONE ALGRFT STRUCT ADD-ONAZEDINE MEDHKOURStart: 12-63-8613Vtywilvr screenPROVIDER UNKNOWN Comment on above:Order Comment: 2 units 2 units 2 units 2 units 2 unitsPerformed By: #### [id number] #### [facility] [address] [facility] [place] [place] [address], USAStart: 02-08-1998H/O: vasectomyHistory of vasectomyRubén Geiger MD Work Phone: ColonoscopyKathy Lue Hemorrhoids (disorder)Viola Lue Hernia of abdominal cavity (disorder)Viola Lue TonsillectomyKathy Lue Plan of Treatment DateCare ActivityDetailAuthorStart: 11-05-2025 End: 77-26-8304Pfjmkec encounter lasdyexjh12/23/2026 1:20 PM EST Office Visit [facility] [address] [place] [address] Rubén Geiger MD [address] [place] [address] NOMClotilde Wiley NeurologyStart: 07-13-2025 End: 13-47-4803Waeadsq encounter fgzgrppke62/31/2025 2:40 PM EDT Office Visit [facility] [address] [facility] [address] [place] [address] Heather Rainey, 7TH GRADE TEACHER [address] [place] [address], [place] [id number] ArrivedNOMS [facility] Comment on above:ArrivedStart: 06-27-2025 End: 04-87-7230Ojfhgwt encounter procedureNOMS [facility] NE[facility]Start: 33-58-2415TYWZE-19 Vaccine ( season)COVID-19 Vaccine ( season)NOMS HealthcareStart: 74-15-8589Xeddxyfhv vaccinationInfluenza Vaccine (#1)NOMS HealthcareStart: 04-04-2025 End: 67-07-8544Kiydzlg encounter procedureNOMS SWS NEURComment on above:Arrived Start: 01-03-2025 End: 88-14-7039Rzexrdx encounter procedureNOMS SWS NEURComment on above:Arrived Start: 10-04-2024 End: 64-48-4718Sfjqlbk encounter kltgoizjv01/22/2025 2:20 PM EST Office Visit [facility] [address] [facility] [address] [place] [address] Rubén Geiger MD [address] [facility] [address], [place] [id number] N[facility]S [facility] NEURStart: 64-52-6816Wuobwhfvwjf Wound CultureSuperficial Wound CultureThe [facility] Hospitaltart: 07-03-2024 End: 16-20-5413Mqwhusi encounter procedureNOMS SWS NEURComment on above:Arrived Start: 92-54-1796Rnujjtpyu vaccinationInfluenza Vaccine (#1)[facility] Start: 49-51-8902Xxnlleytt B Vaccines (1 of 3 - 19+ 3-dose series)Hepatitis B Vaccines (1 of 3 - 19+ 3-dose series)[facility] HealthcareStart: 1976 DTaP/Tdap/Td Vaccines (1 - Tdap)DTaP/Tdap/Td Vaccines (1 - Tdap)[facility] Start: 15-22-9999BBC Vaccines (1 of 1 - Standard series)MMR Vaccines (1 of 1 - Standard series)NOM HealthcareStart: 79-82-9683Obffikjpk for malignant neoplasm of colonNOMS HealthcareBacteria identified in Unspecified specimen by Aerobe cultureMemorial HospitalCT Lower leg - right W contrast IV Memorial HospitalXR Tibia and Fibula - right 2 ViewsLakeland Regional Health Medical Center Immunizations Immunization DateImmunizationNotesCare XfdatbdsCpaneetd22-16-6579octwhpkpy virus vaccine, unspecified formulationJacsaeid Rainey 7TH GRADE TEACHER Work Phone: [facility] HospitalOnaqxtwwwa15-92-5232zczduviqt virus vaccine, unspecified formulationBremuriel Geiger MD Work Phone: noFreeman Orthopaedics & Sports MedicineTjonrcikei28-36-0392umgzdtpxn virus vaccine, unspecified formulationBremuriel Geiger MD Work Phone: [facility] Payers DatePayer CategoryPayerPolicy [id number]-efz [id number] [id number] [id number] 2..840.1.697054.3.579.2.647 [id number] 2.16840.1.089425.3.57[id number] 2.16.840.1.017646.3.57[id number] 2..840.1.973007.3.579.2.[id number] 2.16.840.1.640474.3.57[id number] 2.840.1.983593.3.57[id number] 2.840.1.309854.3.579.2.34666-61-1965Pqzgjcd3285407 2.840.1.019041.3.57[id number] 2.840.1.625937.3.57[id number] 2.840.1.433929.3.57[id number] 2.840.1.018925.3.57[id number] 2.840.1.577532.3.57[id number] 2.840.1.172246.3.57[id number] 2.840.1.264417.3.579.[id number] 2.840.1.422732.3.579.2.[id number] 2.840.1.378938.3.579.[id number] 2.840.1.452881.3.57[id number] [id number] 2.16.840.1.56[id number] 2.16.840.1.1[id number] 2.16.840.1.515428.3.579.2.531 Social History DateTypeDetailFacilityTobacco smoking statusNo Smoking Status EnteredExecutive [facility] start: 03-27-2024 End: 80-26-9672Daa [facility] start: 05-15-2018 End: 75-83-0478Spatacs smoking status NHISEx-smoker (finding)[facility]: 91-77-6952Zse [facility]: 54-54-6595Fexwvza smoking status NHISNever smoked tobacco [facility]: 64-53-4925Elbmkbl use and exposureSmokeless tobacco non-userNOMS HealthcareStart: 03-27-2024 End: 27-92-2479Wkgkjkgkz beverage intakeEx-drinker (finding)[facility] Start: 03-27-2024 End: 13-34-1095Rrwkwnw of Social functionNOMS HealthcareStart: 99-59-5580Xgu assigned at birthNot on fileNOMS HealthcareStart: 78-52-9413SgaLkfz (finding) [facility]: 76-40-9353RjnPbslOPCY Healthcare Functional Status HzonBmdarxrdytZqgashHqsqlnsj39-99-0034Bpyuwbyohj StatusN/AExecutive [facility]rology [facility] Notes 02-25-2022 to 07-13-2025 Note Date & VobuTckkFaklqlje86-27-4237 History of Present illness Narrative* Heather Rainey, [employer] - 07/13/2025 2:40 PM EDT Images from [...] care. This clinical note was created utilizing [employer] documentation system. All information has beenthoroughly reviewed, corrected as necessary, and authenticated by the provider to ensure accuracy and completeness. On occasion, [employer] documentation system erroneously drops words or replaces aspoken word with a similar sounding word. Please notify with any questions or concerns regarding this clinical note. documented in this encounterHermann Area District HospitalWzglhazszd29-67-5071 Radiology Diagnostic study [facility] [place] [address] [place] [address] CT Scan Report Signed Patient: Matty Garces MR#: [id number] : 1970 Acct:[id number] Age/Sex: 54 / M ADM Date: 5 Loc: CT Room: Type: [facility] CLI Attending Dr: Jameel Coats DO Copies [...] Irving M.D. 05/29/2025 11:40 PM Dictation Location: [facility]17 Transcribed By: [facility] 05/29/252339 Dictated By: Francis Irving II, MD 05/29/25 0754 Signed By: 05/29/252339 [facility] Work Phone: 1(220) 898-326309-03-2025 Telephone encounter Note* Telephone Encounter - Heather Rainey NP - 05/16/2025 8:45 AM EDT OARRS reviewed [facility] HospitalFpuaxcidgu47-78-2079 Miscellaneous Notes* Telephone Encounter - Heather Rainey NP - 05/16/2025 8:45 AM EDT OARRS reviewed documented in this encounterHermann Area District HospitalScygkfznbs77-92-4112 Evaluation note* Diagnosis Onset Date Resolution Status Admit Date Hypertrophy of bone of lower leg noneactiveAugust 2024 11:21amFracture of right tibia and fibulanoneactive May 07, 2025 11:21amRight leg painnoneactiveAugust 2024 11:21am [facility] Work Phone: 1(800) 127-269607-23-2025 History of Present illness Narrative* Rubén Geiger [...] in all four extremities, including at least director safety council, finger abductors, biceps, triceps, deltoid, toe flexors [...] refill for Xywav will be sent to [facility]. If symptomspersist or worsen, further [...] up in 3 months. documented in this encounterHermann Area District HospitalVlzkyuuedc05-53-8804 History of Present illness Narrative* Rubén Geiger [...] 1 mg, Oral, 2 times daily HYDROcodone-acetaminophen (Clayton) 5-325 MG tablet hydrOXYzine pamoate (Vistaril) 25 [...] in all four extremities, including at least director safety council, finger abductors, biceps, triceps, deltoid, toe flexors [...] Increase Xywav to 6mg documented in this encounterHermann Area District HospitalOastyldtzi47-82-9268 History of Present illness Narrative* Rubén Geiger [...] 1 mg, Oral, 2 times daily HYDROcodone-acetaminophen (Clayton) 5-325 MG tablet hydrOXYzine pamoate (Vistaril) 25 [...] in all four extremities, including at least director safety council, finger abductors, biceps, triceps, deltoid, toe flexors [...] intracranial or extracranial stenosis. documented in this encounterHermann Area District HospitalQkkvbeigts42-47-6843 Telephone encounter Note* Telephone Encounter - Isabella Manzano - 11/14/2024 9:49 AM EST Pt called for refill on Zofran. [facility] Work Phone: 1(636) 916-890903-04-2025 Miscellaneous Notes* Telephone Encounter - Isabella Manzano - 11/14/2024 9:49 AM EST Pt called for refill on Zofran. documented in this encounterHermann Area District HospitalYpcjoxrsgg45-66-5333 Telephone encounter Note* Telephone Encounter - Heather [...] sent and if I search patient chat. [facility] HospitalDxlnjpwuqy85-97-2390 Miscellaneous Notes* Telephone Encounter - Heather Rainey [...] I search patient chat. documented in this encounterHermann Area District HospitalGtaexulemc95-28-7914 NoteOccupational Therapy Occupational Therapy Treatment Note Patient [...] of right fibula and tibia HTN (hypertension) APTEL (obstructive sleep apnea) Gastroesophageal reflux disease Obese Left leg cellulitis Anxiety disorder Open wound of left great toe Cellulitis of left leg Past Medical History: Diagnosis Date Hypertension Past Surgical History: Procedure Laterality Date ABDOMINAL SURGERY FRACTURE SURGERY OT Received On 10/11/2024 Subjective When I get home, Im going to put in a elba toilet. (Crematory Operator suggesting a RTS or to have son put in toilet however, pt stated that he will replace the toilet himself) Objective 1 Pt was up in chair at [facility] with on her way. Objective 2 Crematory Operator provided education on home and bathroom safety. [...] A Little (Min Henrietta (more content not included)...[facility] 10-11-2024 NoteHospital Medicine Discharge Summary Final Discharge Diagnosis: Left leg cellulitis Open wound of left great toe HTN Anxiety disorder Chronic combined systolic and diastolic Congestive heart failure, NYHA II Closed fracture of right fibula and tibia Admission Diagnosis: Left leg cellulitis [L03.116] Cellulitis of right lower extremity [L03.115] Cellulitis of left leg [L03.116] Hospital course: 54-year-old male who came from [facility] due to left lower extremity cellulitis. [...] 10/26/2024 2:50 PM Sandrine Field MD ORTHO [facility] Your medication list START taking these medications [...] Medications These medications were sent to [facility] [place], [place] - [address] [place] [address] [place] [address], [facility] [address] Phone (more content not included)...[facility] 10-11-2024 NotePharmacy Dosing Service - [...] or questions Thank you, Sudha Camacho, PharmD, 10/11/24[facility]01-29-2025 Note Attestation signed by Sandrine [...] with any concerns via the Orthopaedic pager ([phone]) at any time. Jazzmine Casanova MD Orthopedic Surgery Resident, PGY 1UnCleveland Clinic [facility]01-28-2025 [facility] Medicine Daily Progress Note - 10/10/2024 6:40 PM; Room: [address] [place] [address] Admission: 10/08/2024 5:47 AM; Length of stay: 2 days THE HOSPITALIST TEAM PREFERS TO USE AlephD CHAT FOR NON-URGENT COMMUNICATION 7AM-7PM. IF I DO NOT RESPOND WITHIN 20 MINUTES OR URGENT MATTERS, PLEASE CALL THROUGH THE DYNAMITER. FROM 7PM-7AM, PLEASE PAGE [phone](COVR). Code Status: Full Code Barriers to Discharge: [...] , FREET4 , CORTISOL , FEV1 , LHY4YLN , DLCO , RVSP , HDL , LDL No results found for: LIMZEZPJ23 , IRON , TIBC , C3 , [...] Discharge Planning Expected Discharge Disposition: Home-Health Care [facility] (06) PT (more content not included)...[facility]01-28-2025 NoteUnWestern [facility] Hospital Vascular Surgery/Wound Care CONSULTATION Reason for [...] Patient reports that he has followed with recoating machine operator in [place] for many years for treatment of his left great toe DFU. States that is chronic and has been minimal healing progress until recently. Patient states he would like to resume care with this recoating machine operator at discharge. He has not been able to see recoating machine operator since previous discharge due to scheduling issues. [...] on file Occupational Histor (more content not included)...[facility]01-28-2025 NotePhysical Therapy Physical Therapy Treatment [...] Stand Technique 1 S (more content not included)...[facility] 10-10-2024 Note. Pharmacy Dosing Service [...] 5 days. -Check BUN/SCr daily Erin RangelD, 10/09/24[facility]01-27-2025 Note Occupational Therapy Occupational Therapy Evaluation Patient Name: Matty Garces : 1970 Today's Date: 10/09/2024 Time in:1504 Time out: 1526 Present Illness History: 54 y/o M presented from [facility] with R LE cellulitis. Patient was recently [...] Level of Function Prior Function Level of [place]: Independent with ADLs and functional transfers, Independent [...] mobility, transfers and fu (more content not included)...[facility]01-27-2025 Note10/09/24 0909 Admission Assessment Questions [...] Status Interested Does the patient have a human services case manager assigned to them through their insurance? No Living Arrangement (Current/Prior to Hospitalization) Private residence (lives with ) Does the patient have history of C or SNF? Yes (Active with Radha[facility]Abdirashid [facility]) Assistive Device Wheelchair;Bedside Commode;Walker Patient's goal for discharge Home with [facility] Was patient reminded that goal for discharge is 11am? No Does the patient have transportation at discharge? Yes Type of Residence Private residence;Home care staff Is PT/OT appropriate? Yes Is PT/OT ordered? Yes Is SW consult appropriate? Yes Is SW consult ordered? Yes Do you understand the benefits of MyChart? Yes Were you able to send link and activate MyChart? [facility]01-27-2025 NoteHospital Medicine Daily Progress Note - 10/09/2024 12:13 PM; Room: [address] [place] [address] Admission: 10/08/2024 5:47 AM; Length of stay: 1 days THE HOSPITALIST TEAM PREFERS TO USE AlephD CHAT FOR NON-URGENT COMMUNICATION 7AM-7PM. IF I DO NOT RESPOND WITHIN 20 MINUTES OR URGENT MATTERS, PLEASE CALL THROUGH THE DYNAMITER. FROM 7PM-7AM, PLEASE PAGE [phone](COVR). Code Status: Full Code Barriers to Discharge: [...] , FREET4 , CORTISOL , FEV1 , BQU1ZNP , DLCO , RVSP , HDL , LDL No results found for: [id number] , IRON , TIBC , C3 , [...] Discharge Planning Expected Discharge Disposition: Home-Health Care [facility] (06) PT Discharge Recommendations: Home PT Signed C (more content not included)...[facility]01-27-2025 NotePhysical Therapy Physical Therapy Re-Evaluation Patient Name: Matty Garces : 1970 Today's Date: 10/09/2024 General Subjective: Attempted to see pt earlier today ([id number]) for mobility assessment. Pt deferred d/t pain [...] Exercise Therapeutic Exercise Therape (more content not included)...[facility] 10-09-2024 Note. Pharmacy Dosing Service [...] steady state -Check BUN/SCr daily Erin RangelD, 10/09/24UnCleveland Clinic [facility]01-27-2025 Note Orthopaedic Surgery Orthopaedic Surgery Progress [...] Rivas MD Orthopaedic Surgery, PGY-2 Ortho Pager [phone] 10/09/24 6:38 AM I am available via [employer] 6a-6p. May contact the on-call resident with any concerns via the Orthopaedic pager at any time.[facility]01-26-2025 NoteCase was discussed with the AYAKA on 10/08/2024. I agree with the history, physical, assessment, and plan of care. I discussed the findings and therapeutic plan. I agree with the documentation, except for any updates below. Fabiola Wade, [facility]01-26-2025 NotePhysical Therapy Evaluation Patient Name: Matty Garces Today's Date: 10/08/2024 Admit Date: 10/08/2024 Time In: 1:20pm Time Out: 1:45pm Cumulative minutes: 25 minutes Billed minutes: 25 minutes; 15 min eval; 10 min therapeutic exercise to review HEP x10 reps. History of present illness Per H&P: Matty Garces is an 54 y.o. male who came from [facility] with LLE cellulitis. Patient has PMH of hypertension, diastolic heart failure, GERD, anxiety. He recently was admitted here and had right leg tib/fib fracture and seen by our ortho team and had closed insertion with intramedullary wendy on 09/24/24 and was discharged home. He reports he went to [place] ER due to increased pain, swelling and [...] patient refused this stating he already has [facility] set up and wants to go home. Vascular surgery was consulted for a chronic left foot ulcer. Pulmonary navigator was consulted for PATEL and recommended OP sleep study. On day of discharge, Trauma team was informed at approximately 1730 per [facility] that patient went into a-flutter and sustained for approximately 2 hours from approximately [id number]. Trauma team ordered a STAT ECG and [...] WB status. Objective assessment (more content not included)...[facility]01-26-2025 NotePharmacy Dosing Service - Vancomycin Initial Consult Note Pharmacy has been consulted for the dosing and evaluation of Drug: Vancomycin Indication: complicated skin and soft tissue infection AUC 400-600 mg*hr/L and trough 10-20 mcg/mL Other Antimicrobial Regimens: cefepime Labs and Renal Function Total body weight: 134 kg (295 lb) [place] body weight: 82.2 kg (181 lb 3.5 [...] Comments: - 54 year old male from [place] with LLE cellulitis -Had intramedullary wendy placed [...] or questions Thank you, Altaf Martin, PharmD, 10/08/24UnCleveland Clinic [facility]01-26-2025 Note Will consult wound careUnCleveland Clinic [facility] Hospital01-26-2025 Note Continue vanco and zosyn Ortho following Will get blood culturesUnCleveland Clinic [facility] Hospital01-26-2025 Note Continue citalopram, clonazepamUnCleveland Clinic [facility] Hospital01-26-2025 NoteContinue modafinil, coregUnCleveland Clinic Mercy Hospital01-26-2025 Note Not in exacerbation Continue furosemide, coreg, asaUnCleveland Clinic Mercy Hospital01-26-2025 NoteOrtho following, concern for possible infection Admit to med surg Activity orders per ortho with LLE Cardiac diet Will get labs this morning and follow up on results Daily bmp and cbc to monitor kidney function, electrolytes, hgb and wbc Case will be discussed with attending physicianDayton VA Medical Center01-26-2025 NoteHospital Medicine History and Physical 10/08/2024 7:26 AM THE HOSPITALIST TEAM PREFERS TO USE [employer] FOR NON-URGENT COMMUNICATION 7AM-7PM. IF I DO NOT RESPOND WITHIN 20 MINUTES OR URGENT MATTERS, PLEASE CALL THROUGH THE DYNAMITER. FROM 7PM-7AM, PLEASE PAGE [phone](COVR). Chief Complaint Chief Complaint Patient presents with Cellulitis History of Present Illness Matty Garces is an 54 y.o. male who came from [facility] with LLE cellulitis. Patient has PMH of hypertension, diastolic heart failure, GERD, anxiety. He recently was admitted here and had right leg tib/fib fracture and seen by our ortho team and had closed insertion with intramedullary wendy on 09/24/24 and was discharged home. He reports he went to [place] ER due to increased pain, swelling and [...] this hospital stay by a member of [facility] Medicine. Past Medical History Past Medical History: [...] Insecurity: No Food Insecurity (more content not included)...[facility]01-20-2025 Telephone encounter Note* Telephone Encounter - Marianna Sheehan LPN - 10/02/2024 2:19 PM EST Provigil refill request to [facility] sent to provider. Last appt. 07/03/24 [facility] HospitalDdrtzsbyub78-18-5163 Miscellaneous Notes* Telephone Encounter - Marianna Sheehan LPN - 10/02/2024 2:19 PM EST Provigil refill request to [facility] sent to provider. Last appt. 07/03/24 documented in this encounterHermann Area District HospitalXnemhqbtte19-12-8472 NoteTrauma team informed at approximately 1730 per [facility] that patient went into a-flutter and sustained for approximately 2 hours from approximately 1543-6484. Trauma team ordered a STAT ECG and [...] tonight, AMA AMA paperwork reviewed and signed [facility]01-16-2025 Note09/28/24 1537 Home Oxygen Therapy Evaluation Pulse Oximetry on room air at Rest 94 Pulse Ox on room air while walking 96 Patient Qualification for home oxygen Does not qualify for home oxygen this visit (When pt is sleeping, apnea is noted and at times saturation drops but when pt is awake and moving his oxygenation is stable)[facility]01-16-2025 NoteUnWestern [facility] Hospital Trauma Surgery Progress Note Subjective Patient [...] kg (296 lb 15.4 oz) (09/28 035) [place] Coma Scale Score: 15 FiO2 (%): [50 [...] Value Ventricular Rate 82 Atrial Rate 82 AK Interval 164 QRS DURATION 92 QT Interval 386 QTC CALCULATION(BAZETT) 450 P [place] 61 R-[place] 18 T Wave [place] 69 Impression Normal sinus rhythm Normal ECG [...] C, PT/OT recommending walker, commode, and rolling wheelchair.[facility]01-16-2025 Note Physical Therapy Physical Therapy [...] EOB, commode, and recliner (more content not included)...[facility]01-16-2025 NoteOccupational Therapy Occupational Therapy Treatment [...] apnea) Gastroesophageal reflux disease Obese Co-tx with PORTER HEAD to facilitate purposeful activity, 2/2 high fall risk, impaired dyn standing balance & act tolerance, poor safety awareness, & poor safety awareness with STS, transfers, & functional ambulation; To maintain safety of patient & staff. 09/28/24 1358 OT Last Visit OT Received On 09/28/24 General Subjective I got my w/c 3rd hand...from my tcbcki-tp-ysz. Treatment Duration (min) 55 Minutes Response to [...] not maintain precs. General Assessment Hearing mild [place] Skin Integrity ALVARO wrap to RLE, DFU [...] during mary lou-care post BM, standing at [facility]. Unsteadiness present. Static Sitting Balance Static Sitting-Balance Support Feet supported Static Sitting-Level of Assistance Distant supervision Static Sitting-Comment/Number of Minutes Supervision for safety Dynamic Sitting Balance Dynamic Sitting-Balance Support Feet supported;Unilateral upper extremity supported Dynamic Sitting Balance-Level of Assistance Close supervision Dynamic Sitting-Comments SBA for safety scooting EOB, positioning on [facility] Static Standing Balance Static Standing-Balance Support With [...] mary lou-care & hygiene in stance at [facility] with RW. Add'l SBA for safety. Pt very unsteady with poor awareness. CGA during functional ambulation with device. Cues for safety awareness, & maintaining WB precs. Bed Mobility 1 Bed Mobility From 1 Supine Bed Mobility Type 1 To Bed Mobility to 1 Short sit Level of Assistance 1 Close superv (more content not included)...[facility]01-16-2025 NoteCalled [employer] by phone to check on status of pt's DME (wheelchair, walker, bedside commode). Was advised they did not receive it via [employer] and would need it direct faxed to [phone]. Faxed referral and was advised they will [...] to call . UPDATE 3:05PM- Spoke with [employer] again and was advised the wheelchair [...] discharge around 6pm tonight. Also spoke with [facility] and was provided w/ fax [phone] to send AVS once ready. UPDATE 4:05PM- Direct faxed final AVS to [facility]01-16-2025 NoteUnWestern Reserve Hospital Vascular and Wound Surgery DAILY PROGRESS [...] 2. Unchanged cardiomediastinal silho (more content not included)...[facility]01-15-2025 NoteDischarge Planning: Home with [facility] The patient was accepted by [facility]. DME referral sent to [facility]. The patient would like the DME either delivered to the hospital or his home prior to discharge.[facility]01-15-2025 Note Occupational Therapy Occupational Therapy Treatment Patient Name: Matty Garces : 1970 Today's Date: 09/27/2024 Time in:1357 Time out:1450 Total time:53 minutes,23 min OT, additional for PORTER HEAD [place] provided to maximize safety as progressed [...] max safety as patient stood, patient complete amry lou hygiene UE Dressing UE Dressing Level [...] precautions etc Transfers 2 (more content not included)...[facility]01-15-2025 Note Physical Therapy Physical Therapy [...] 1 for lift, balance, (more content not included)...[facility]01-15-2025 Note Attestation signed by Fahad [...] kg (299 lb 2.6 oz) (09/27 338) [place] Coma Scale Score: 15 Intake/Output Summary (Last [...] Value Ventricular Rate 82 Atrial Rate 82 [place] Interval 164 QRS DURATION 92 QT Interval 386 QTC CALCULATION(BAZETT) 450 P [place] 61 R-[place] 18 T Wave [place] 69 Impression Normal sinus rhythm Normal ECG [...] for acute findings. Respiratory: (more content not included)...[facility] 09-26-2024 NotePer patients patient was to start with Radha Mendenhall [facility] on the day of admit. Referral made as requested. SW following.[facility]01-14-2025 NoteUnWestern Reserve Hospital Vascular and Wound Surgery DAILY PROGRESS NOTE Subjective Patient seen and examined at bedside. No acute events overnight. Vital signs stable. Denies pain to the left ulcer. Patient states he follows regularly with recoating machine operator [facility] and plans to follow-up with [...] Increased oxygen requirements. COMPARISON: (more content not included)...[facility] 09-26-2024 NoteOccupational Therapy Occupational Therapy [...] on with B LE's elevated Objective 2 Crematory Operator discussed importance of discharging to facility for continued therapy prior to going home however, pt declines. Pt transfers are currently unsafe with rfp writer questioning ability to maintain WB status. [...] Other Pt is impulsive during standing/transfer activities. Crematory Operator questions pts safety while at home. General [...] training, Endurance training, Patient/f (more content not included)...[facility]01-14-2025 NoteOrthopaedic Surgery Orthopaedic Surgery Progress [...] Can be reached at the orthopedic pager: [phone] Luis Felipe Rivas MD 09/26/24 7:24 AM Ortho Pager: [phone] Clinic Mercy Hospital01-14-2025 Note [facility] Trauma Surgery [...] kg (303 lb 9.2 oz) (09/26 043) [place] Coma Scale Score: 15 Intake/Output Summary (Last [...] Value Ventricular Rate 82 Atrial Rate 82 AK Interval 164 QRS DURATION 92 QT Interval 386 QTC CALCULATION(BAZETT) 450 P [place] 61 R-[place] 18 T Wave [place] 69 Impression Normal sinus rhythm Normal ECG [...] Syncopal workup -Telemetry monitori (more content not included)...[facility]01-13-2025 NotePt was seen early this morning about wearing BiPap for possible sleep apnea due to periods of apnea and decreased oxygen saturation overnight. Pt refused BiPap, stating he has tried it before and it gives him migraines. Pt was agreeable to wearing a salter at night to help with oxygenation.[facility]01-13-2025 Note09/25/24 1528 Referral Data Referral Source preparation room worker Referral Reason Follow up;Information Patient Information Primary Caregiver Spouse Activities of Daily Living Assistive Device Walker;Wheelchair Behavior Oriented Communication Talks;Understands speaking Discharge Planning Living Arrangements Spouse/significant other Support Systems Spouse/significant other Type of Residence Private residence;[facility] (await name of agency from ) Post Acute Services In home services (agreeable to [facility]) Type of Home Care Services (Current) Skilled Home Servicies;Home OT;Home PT ([facility] was just going to start services before admit) Patient's goal for discharge home with [facility] Does the patient need discharge transport arranged? No () Screened by [facility]. Pt declines SNF placement and is agreeable to take pt home with [facility]. Await name of [facility] agency that was approved to start services. Pt will likely need RT for home O2. Will follow up with pt's for [facility] agency. thinks [facility] agency is [employer] [facility] or Field Agent [facility]. SW will follow with referrals.[facility]01-13-2025 Note09/25/24 1332 Admission Assessment Questions [...] Status Interested Does the patient have a human services case manager assigned to them through their insurance? No Living Arrangement (Current/Prior to Hospitalization) Private residence;Home self care Does the patient have history of HHC or SNF? Yes (pt could not remember the [facility] agency name, neither could ) Assistive [...] Assessment completed with , patient deferred to .[facility]01-13-2025 NoteThe findings from this face to face encounter indicate the reason this patient requires a bedside commode. Patient is physically incapable of using regular toilet facilities. Patient is confined to 1 level of the home with no toilet on that level Marilou Tomlin [facility] Department of Surgery - Trauma [phone]01-13-2025 NoteThe findings from this face [...] is provided in the home Marilou Tomlin [facility] Department of Surgery - Trauma [facility]-[address] [place], [place] [address]01-13-2025 NoteThe findings from this face to face [...] been discussed with the patient Marilou Tomlin [facility] Department of Surgery - Trauma [phone] [place], [place] [address]001-13-2025 NotePhysical Therapy Physical Therapy Evaluation Patient Name: [...] demo General Assessment General Assessment Hearing: mild HABEMATOLEL Skin Integrity: alvaro wrap to RLE, wound [...] Level of Function Prior Function Level of [place]: Independent with ADLs and functional transfers, Independent [...] deficits Perception Inattention/Neglect: A (more content not included)...[facility]01-13-2025 Note Attestation signed by Gabriel [...] meet criteria for admission to IPR: Assessment: Lehigh fracture of the right tibial shaft and [...] Plan of Care: Patient with diagnosis of Lehigh fracture of the right tibial shaft and [...] oral, TID wit (more content not included)... [facility]01-13-2025 NoteOccupational Therapy Occupational Therapy Evaluation [...] carryover General Assessment General Assessment Hearing: Mild HABEMATOLEL Skin Integrity: ALVARO wrap to RLE, DFU [...] LLE heel WB de (more content not included)...[facility]01-13-2025 NoteOrthopaedic Surgery Orthopaedic Surgery Progress [...] Rivas MD 09/25/24 7:02 AM Ortho Pager: [phone]01-13-2025 Note [facility] Trauma Surgery [...] Value Ventricular Rate 82 Atrial Rate 82 AK Interval 164 QRS DURATION 92 QT Interval 386 QTC CALCULATION(BAZETT) 450 P [place] 61 R-[place] 18 T Wave [place] 69 Impression Normal sinus rhythm Normal ECG [...] mary lou-colace an (more content not included)... [facility]01-12-20[facility]SULTATION Reason for Consult: Left foot ulcer Subjective History of Present Illness: Matty Garces is a 53 y.o. male with a PMH of DM, HTN, HF and recent cellulitis to [facility] . He is admitted for transverse [...] BID, ROMAIN Acevedo, 1 tablet at 09/24/24 3625 Social History Socioeconomic History Marital status: Spouse [...] rhythm. Pulmonary: Effort: Pulmonar (more content not included)...[facility]01-12-2025 NoteOrthopaedic Surgery Orthopaedic Surgery Progress [...] BRO MD 09/24/24 10:29 PM Ortho Pager: [phone] Clinic Mercy Hospital01-12-2025 Note Patient: Matty Garces Procedure Summary Date: 09/24/24 Room / Location: [facility] OPERATING ROOM 05 / [facility] Operating Room Anesthesia Start: 1020 [...] preop) Hydration status: acceptable No notable events documented.[facility]01-12-2025 Note Airway Date/Time: 09/24/2024 10:35 AM Urgency: elective General Information and Staff Patient location during procedure: OR Anesthesiologist: Jeffery Casey MD Resident/PMP/CAA: Kenneth Marina MD Performed: resident/PMP/CAA Indications and Patient Condition Indications for airway [...] approach: 1 Number of other approaches attempted: 0UnCleveland Clinic Mercy Hospital 09-24-2024 NotePatient: Matty Garces Procedure Information Date/Time: 09/24/24 1000 Procedure: CLOSED INSERTION, INTRAMEDULLARY WENDY, TIBIA (Right: Leg Lower) Location: [facility] OPERATING ROOM 05 / [facility] Operating Room Surgeons: Sandrine Field [...] Value Ventricular Rate 97 Atrial Rate 97 AK Interval 156 QRS DURATION 84 QT Interval 368 QTC CALCULATION(BAZETT) 467 P [place] 54 R-[place] 60 T Wave [place] 12 Impression Normal sinus rhythm Normal ECG [...] discussed with attending and resident. Additional Equipment RequestsDay[facility] Medical Center01-12-2025 Note Subjective Patient resting comfortably [...] kg (304 lb 3.8 oz) (09/24 951) [place] Coma Scale Score: 15 Intake/Output Summary (Last [...] wounds to LLE, wounds (more content not included)...[facility]01-12-2025 NotePhysical Therapy Name: Matty Garces Date of : 1970 Today's Date: 09/24/24 Pt is unable to be seen for therapy at this time secondary to Surgery today for fixation of frature. Will check back and complete therapy session as appropriate. Check No Charge Time attempted: 0759 Janet Lovelace PT, [facility]PITALUnC[facility]01-12-2025 Note Orthopaedic Surgery Orthopaedic Surgery Progress [...] Rivas MD Orthopaedic Surgery, PGY-2 Ortho Pager [phone] 09/24/24 7:29 AM I am available via PopUp chat 6a-6p. May contact the on-call resident with any concerns via the Orthopaedic pager at any time.[facility]10-22-2024 Telephone encounter Note* Telephone Encounter - Nita Anthony - 07/04/2024 4:10 PM EDT left message regarding prescriptions earlier today and not being at pharmacy. I did call back and spoke to advising they were sent this afternoon. had mentioned Dr. Geiger was also going to start a Vitamin B to help boost energy in the morning. [facility] [place]. [facility] [id number] Miscellaneous Notes* Telephone Encounter - Nita Anthony - 07/04/2024 4:10 PM EDT left message regarding prescriptions earlier today and not being at pharmacy. I did call back and spoke to advising they were sent this afternoon. had mentioned Dr. Geiger was also going to start a Vitamin B to help boost energy in the morning. [facility] in [place]. documented in this encounterHermann Area District [phone] History of Present illness Narrative* Rubén Geiger [...] 1 mg, Oral, 2 times daily HYDROcodone-acetaminophen ([place]) 5-325 MG tablet hydrOXYzine pamoate (Vistaril) 25 [...] reflexes: Alycia's absent. Ankle clonus absent. Coordination Kcozwx-qk-johk, rapid alternating movements and tugt-vv-kctu normal bilaterally without dysmetria. Gait Normal casual, [...] Follow up 3 months. documented in this encounterHermann Area District HospitalYojmwixxqf13-03-3628 NotePROCEDURE: XR FOOT LT MIN 3 VIEWS [...] Electronically authenticated by: ALVINA CAICEDO Date: 2022-03-26 10:47[facility]06-15-2022 Hospital Discharge instructions Patient Education 02/25/2022 11:09:43 [...] Watch the hydrocele for any changes. Take ywmx-cmc-nxpvkgd and prescription medicines only as told by [...] 02/17/2011 Document Revised: 09/10/2018 Document Reviewed: 09/10/2018 [employer] Patient Education 2020 [employer]. Follow Up Care 01/28/2022 10:36:35 With:Mitchel DELGADO, CHINA Gregorio, URO Address: When: Unknown [facility] evaluation + Plan note No data available for this section [facility] evaluation noteNo assessment information available [facility] Work Phone: Evaluation note* Diagnosis Excessive [...] May 07, 2025 11:21amRight leg painnoneactiveAugus2024 11:21am [facility] Work Phone: Evaluation note* Diagnosis [...] [facility] reason for referral (narrative)No reason for referral information availableUniversity Hospitals Portage [facility] Center Work Phone: Summary Purpose Family [...] May 11:42am Hospital Course Note MR#: [id number] [facility] Pt. Name: Matty Garces Admitted: 01/30/2019 [...] and content) DATE CREATED AUTHOR 07/19/2019 [facility] DATE CREATED AUTHOR AUTHOR'S ORGANIZ ATION 02/27/2022 [facility] DATE CREATED AUTHOR AUTHOR'S ORGANIZ ATION 12/08/2022 [facility] DATE CREATED AUTHOR AUTHOR'S ORGANIZ ATION 12/03/2023 [facility] DATE CREATED AUTHOR AUTHOR'S ORGANIZ ATION 10/15/2024 [facility] DATE CREATED AUTHOR AUTHOR'S ORGANIZ ATION 06/23/2025 [facility] DATE CREATED AUTHOR AUTHOR'S ORGANIZ ATION 07/15/2025 [facility] EPIC Care Team (unrecognized sect ion and content) Team Status: Inactive Member Role Status Dates Trey Vallejo DPM MS Attending Provider Active Start: January 03, 2024 End: January 03, 2024Team MemberRelationshipSpecialtyStart DateEnd Date Venus Jaeger MD [address] [place] [address] PCP - GeneralFamily Medicine01/10/24Team MemberRelationshipSpecialtyStart DateEnd Date Venus Jaeger MD [address] [place] [address] PCP - GeneralFamily Medicine01/10/24Team MemberRelationshipSpecialtyStart DateEnd Date Venus Jaeger MD [address] [place] [facility] [address] PCP - GeneralFamily Medicine01/10/24Team MemberRelationshipSpecialtyStart DateEnd Date Venus Jaeger MD [address] [place] [address] PCP - GeneralFamily Medicine01/10/24 Team Status: Inactive Member Role Status Dates Trey Vallejo DPM MS Attending Provider Active Start: September 21, 2024 End: September 21, 2024Team MemberRelationshipSpecialtyStart DateEnd Venus Jaeger MD [address] [place] [facility] [address] PCP - GeneralFamily Medicine01/10/24Team MemberRelationshipSpecialtyStart DateEnd Venus Jaeger MD [address] [place] [address] PCP - GeneralFamily Medicine01/10/24Team MemberRelationshipSpecialtyStart DateEnd Date Venus Jaeger MD [address] [place] [address] PCP - GeneralFamily Medicine01/10/24Team MemberRelationshipSpecialtyStart DateEnd Date Venus Jaeger MD [address] [place] [address] PCP - GeneralFamily Medicine01/10/24Team MemberRelationshipSpecialtyStart DateEnd Date Venus Jaeger MD [address] [place] [address] PCP - [facility]01/10/24Team MemberRelationshipSpecialtyStart DateEnd Date Venus Jaeger MD PCP - [facility]01/10/24Team MemberRelationshipSpecialtyStart DateEnd Date Venus Jaeger MD PCP - [facility]01/10/24Team MemberRelationshipSpecialtyStart DateEnd Venus Jaeger MD PCP - [facility]01/10/24 Team Status: Active Member Role Status Lacey Jaeger MD Primary Care Provider Active Team Status: Inactive Member Role Status Lacey Jaeger MD Primary Care Provider Active Start: May 07, 2025 End: May 07, 2025JuDania Paulson ProviderActiveStart: May 07, 2025 End: May 07, 2025Team MemberRelationshipSpecialtyStart DateEnd Date Venus Jaeger MD PCP - [facility]01/10/24Team MemberRelationshipSpecialtyStart DateEnd Venus Jaeger MD PCP - [facility]01/10/24 Team Status: Inactive Member Role Status [...] DateEnd Date Venus Jaeger MD [address] [place] [address] PCP - [facility]07/13/25Team MemberRelationshipSpecialtyStart Date End Date Venus Jaeger MD [address] [place] [address] PCP - [facility]07/13/25 Goals (unrecognized section and content) Goals [...] BE BASED ON THE PRIMARY CLINICAL RECORDS. [facility]. provides no warranty or guarantee of the accuracy or completeness of information in this document.
== END 2025-08-01 09:39 | disposition home or self-care (01) ==
LOC: WC 09:38
PROVIDERS: PCP Family Medicine; Visit Provider Podiatrist Foot & Ankle Surgery
DX: T87.89 Other complications of amputation stump (principal); E11.621 Type 2 diabetes mellitus with foot ulcer; L97.525 Non-pressure chronic ulcer of other part of left foot with muscle involvement without evidence of necrosis
CPT/HCPCS: 97597

== ENCOUNTER 2025-08-15 10:59 | Outpatient (OUT) | payer MEDICAID, SELFPAY ==
--- OUTSIDE RECORDS SUMMARY | 2022-08-24 05:16 | XMS_ITS | Continuity of Care Document ---
Author Organization [facility] Address [address] [place] [phone] Phone Care Team Providers Care Certified Novell Administrator Name Role Phone Kiesha YAO Bora Unavailable Unavailable Procedures Procedure Date Denies Tobacco Use INTRAORAL:PERIAPICAL 1ST FILM LIMITED ORAL EVAL:PROBLEM FOCUSED Treatment Initiated Advance Directives Directive Yes / No Effective Date File Name No Information Encounters Encounter Description Practice Location Reason(s) For Visit Diagnoses Date Provider Providers Copied on Encounter [facility], [address] [place] [address], [id number], tel:[phone] [facility] No Information 2 Kiesha Sahni. [address] [place] [address], [id number] [place], [id number] , [place]. tel:[phone] [facility], [address] [place] [address], [id number], [place] tel:[phone] [facility] Dental S Main Encounter for dental exam and cleaning w/o abnormal findingsEncounter for dental exam and cleaning w abnormal findings 2 Juliane Burnette. [address] [place] [address], [id number] [place], [place], [id number] , [place]. tel:[phone] Family History Family Member Type Diagnosis Age At Onset No Information Payers Payer name Insurance type Covered green party ID Alec campa(s) [facility] [id number] Social History Type Description Quantity Date Captured [...]
--- OUTSIDE RECORDS SUMMARY | 2025-08-15 11:03 | XMS_ITS | Clinical Summary ---
Author Organization [facility] Address [address] [place] [address] Care Team Providers Care Sheet Metal Smith Name Role Phone Cdaen Mendez MD Primary Care Provider [phone] Christiano Geiger MD Unavailable [phone] Trey Vallejo DPM Unavailable [phone] Allergies No known active allergies Medications MedicationSigDispense [...] ProblemNoted DateDiagnosed DateCellulitis of left leg10/09/2024Left leg vcbnoyzkzj30/26/2025 Assessment & Plan (10/08/2024 7:47 AM EST): Continue vanco and zosyn Ortho following Will get blood cultures Open wound of left great toe10/08/2024 Assessment & Plan (10/08/2024 8:36 AM EST): Will consult wound care HTN (hypertension)09/24/2024 Assessment & Plan (10/08/2024 7:47 AM EST): Continue modafinil, coreg PATEL (obstructive sleep apnea)09/24/2024Gastroesophageal reflux ampgihu0409/24/2024 Obese09/24/2024Fall at home, initial vsiunqtwg80/11/2025losed fracture of right fibula and tibia09/23/2024 Assessment & Plan (10/08/2024 7:47 AM EST): Ortho following, concern for possible infection Admit to med surg Activity orders per ortho with LLE Cardiac diet Will get labs this morning and follow up on results Daily bmp and cbc to monitor kidney function, electrolytes, hgb and wbc Case will be discussed with attending physician Non-ischemic cykucfmljjsnik89/27/2023iastolic dysfunction with chronic heart euezfkn8306/09/2023enign hypertensive cardiomyopathy with heart jlkgbvs6406/09/2023 Chronic combined systolic and diastolic congestive heart failure, NYHA class 2 06/09/2023 Overview (06/09/2023): EF 45-50% with mild DD Assessment & Plan (10/08/2024 7:47 AM EST): Not in exacerbation Continue furosemide, coreg, asa Anxiety mylsjysd19/29/2006 Assessment & Plan (10/08/2024 7:47 AM EST): Continue citalopram, clonazepam Social History Tobacco UseTypesPacks/DayYears UsedDateSmoking Tobacco: NeverSmokeless Tobacco: Never Tobacco Cessation:Counseling Given: Not Answered Alcohol UseStandard Drinks/WeekCommentsYes0 (1 standard drink = 0.6 oz pure alcohol)monthlySUMMA HEALTH AKRON [facility]AMPUS UtilitiesAnswerDate RecordedIn the past 12 months has the [employer], [employer], or water [employer] threatened to shut off services in your [...] or living in a care home (including now)? No10/08/2024Hunger Vital SignAnswerDate RecordedWithin the past 12 months, you worried that your food would run out before you got the money to buymore.Never true10/08/2024Ran Out of Food in the Last YearNot on file10/08/2024Sex and Gender InformationValueDate RecordedSex Assigned at YwypsWubv10/11/2025 11:46 AM ESTLegal BmuMdjh5803/11/2022 10:17 PM EDTGender NxtxzqghVptl46/11/2025 11:46 AM ESTSexual OrientationChoose not to jjbvxfhu29/11/2025 11:46 AM EST Last Filed Vital Signs Vital SignReadingTime TakenCommentsBlood Maajaxgk096/8810/11/2024 6:26 AM EST Vmnlh6487/29/2025 6:26 AM PSFInacrfyvtug72.7 ??C (98.1 ??F)10/11/2024 6:26 AM ESTRespiratory Dmdj191110/11/2024 6:26 AM ESTOxygen Hhqgljanpg21%10/11/2024 6:26 AM ESTInhaled Oxygen Concentration--Xgluix611 kg (231 lb 7.7 oz)10/10/2024 6:57 AM LYOMrftey907 cm (6' 2 )10/08/2024 5:58 AM ESTBody Mass Index29.72010/08/2024 5:58 AM EST Plan of Treatment Health MaintenanceDue DateLast DoneCommentsCT Chnljbbwvtes65/21/1970Colonoscopy 1969Colorectal Cancer Xbybodynu32/21/1970Diabetes: Hemoglobin A1C 1969FIT-DNA1969FIT1969FOBT1969 3515Nakjlwowazngv30/21/1970 Diabetes: Retinopathy Rnwbiuvbz79/21/1980Depression Hbqearyid39/21/1982Diabetes: Urine Protein Jwnmpyoty83/21/1989Hepatitis B Vaccines (1 of 3 - 19+ 3-dose series)1988Pneumococcal Vaccine: Pediatrics (0 to 5 Years) and At-Risk Patients (6 to 64 Years) (1 of 2 - PCV)1988Adult Gfwtgry4110/03/1991Zoster Vaccines (1 of 2)2019COVID-19 Vaccine ( season)2025 [...] 09/24/2024 by Sandrine Field MD [facility] CenterNailRight: XgrmpDzfkllv81.043.145S / / [id number] Implanted:Qty: 1 on 09/24/2024 by Sandrine Field MD [facility]: [id number] / / [id number] Implanted:Qty: 1 on 09/24/2024 by Sandrine Field MD [facility]: [id number] / / [id number] Implanted:Qty: 1 on 09/24/2024 by Sandrine Field MD at [facility]: [id number] / / [id number] Implanted:Qty: 1 on 09/24/2024 by Sandrine Field MD at [facility]: [id number] / / [id number] Insurance Advance Directives * Full Code (Latest Code Status on File) Date ActivatedDate InactivatedComments10/08/2024 7:17 AM10/11/2024 4:47 PM * Full Code Date ActivatedDate InactivatedComments09/23/2024 1:50 PM09/28/2024 8:43 PM Care Teams Team MemberRelationshipSpecialtyStart DateEnd Caden Mendez MD [address] [facility] [place] [place] [address] PCP - General09/23/24 Christiano Geiger MD [address] [facility] [address] [address] 10/11/24 Trey Vallejo DPM Address: [address] [place] [address] [place] [address] Podiatr10/11/24
--- OUTSIDE RECORDS SUMMARY | 2025-08-15 11:03 | XMS_ITS | Clinical Summary ---
Author Organization [facility] Address [address] [place] [address] Care Team Providers Care Seo Team Lead Name Role Phone Cdaen Mendez MD Primary Care Provider [phone] Allergies Active AllergyReactionsCriticalityNoted HljqUkdfbhwaPwnfqlytMxiqjin01/26/2021 LwxqtdbzoazWwipdpy15/26/2021Morphine And IhvcnaqIhufety08/26/4546Xxojc04/26/2021 Other Reaction(s): Unknown, will accelerate blindness in [...] each day at the same timeActive HYDROcodone-acetaminophen ([place]) 5-325 MG tablet 03/20/2024ctive cholecalciferol (Vitamin D-3) [...] by mouth at bedtime 30 tablet ctive amantadine (Symmetrel) 100 MG tablet Indications:Excessive daytime sleepiness,Primary insomniaTAKE 1 TABLET (100 MG) BY MOUTH IN THE MORNING AND AT NOON 60 tablet 11005/16/4349066Active modafinil (Provigil) 200 MG tablet Indications:Excessive daytime sleepiness,Obstructive sleep apneaTake 1 tablet (200 mg) by mouth in the morning and at noon 60 tablet 506Active Active Problems ProblemNoted DateDiagnosed DateCellulitis of left lower /26/2025Open wound of left great toe10/08/2024Narcolepsy cataplexy oesebmgv56/22/2025Obese 09/24/2024losed fracture of right fibula and tibia09/23/2024Fall at home, initial foorqozss91/11/2025Weakness of left upper fdfnitfkg34/17/2024Left upper extremity qewihnht40/17/2024Herniation of cervical intervertebral disc with jfbfwljlelqic87/17/2024ecreased testosterone level06/24/2023egeneration of lumbosacral intervertebral disc06/24/2023iabetes mellitus without complication 06/24/20238724Gxffylxhxfyjw22/12/2023Impotence of organic vvzmpi9306/24/2023Lateral zqkdnijrnqrlh23/12/2023Lumbar lsytsfbwsztrq40/12/2023Systolic Unspecified inflammatory spondylopathy, lumbar jobcde5306/24/2023ardiovascular stress test quniltni54/09/2023Chest /09/2023ubital tunnel syndrome on right3Benign hypertensive cardiomyopathy with heart failure 3Chronic combined systolic and diastolic congestive heart failure, NYHA class Overview (10/15/2024): EF 45-50% with mild DD Diastolic dysfunction with chronic heart tdxgiio6806/09/2023Non-ischemic htyrimveyveoaz32/27/2023rimary gbbnanlu74/29/2023Excessive daytime sleepiness 03/11/2023ervical paraspinal muscle spasm03/11/2023Nonpsychotic mental disorder due to organic brain lpslfd5806/26/2021pinal stenosis in cervical region 10/11/2018Cervical disc uvnfznqm39/19/2018Carpal tunnel syndrome of right wrist 03/24/2018Arthritis of right acromioclavicular joint12/30/2017Other chronic pain 12/30/2017Excessive /06/7803Exjizgncjlxralz99/29/2015Senile srfagbwxfbfcgr77/16/2015Urinary tract infectious tyvzjrs8306/28/2014nkle edema 05/15/2014Ulnar nerve nawbqypvwi91/01/1265Zfzwenufb85/27/2013Cellulitis 03/31/2013Disorder of intervertebral disc of lumbar spine12/02/2012Muscle pain 12/02/2012Foot pain10/07/2012Clouded bdqdglzusegyu13/21/6958Wcoybrs45/21/2012 Kbgrayt8611/30/2011Chest pain11/30/20115625Mjgcvmmn90/17/2011Upper respiratory bydzgbwvb84/25/2011Joint pain09/03/2009Hypertensive /05/2009Capillary wwkqlhaimx56/15/2008Diabetes /11/6399Lqfzvcop69/21/2007nxiety dyxibmlk61/29/2006Impingement syndrome of shoulder yxclne0501/25/2003Obstructive sleep apnea11/06/2002History of fzummgvte70/29/1998 Encounters DateTypeDepartmentCare KwywLxciwlfuiou70/31/2025 2:40 PM EDTOffice Visit [facility] [address] [place] [address] Heather Miguel NP Cervical disc disorder (Primary Dx); Excessive daytime sleepiness; Obstructive sleep apnea; Intractable chronic migraine with aura with status migrainosus; Primary narcolepsy with cataplexy (HCC)07/13/2025amboo flowsheet [facility] [address] [place] [address] Heather Miguel NP 07/13/20256330Jnqycs04/09/2025Telephone [facility] [address] [place] [address] Radha Wright MA from Last 3 Months Family History Medical HistoryRelationNameCommentsDiabetesFatherGlaucomaMotherRelationName StatusCommentsFatherAliveMotherAlive Social History Tobacco UseTypesPacks/DayYears UsedDateSmoking Tobacco: NeverSmokeless Tobacco: Never Tobacco Cessation:Counseling Given: Not Answered Alcohol UseStandard Drinks/WeekCommentsNot Currently0 (1 standard drink = 0.6 oz pure alcohol)Sex and Gender InformationValueDate RecordedSex Assigned at Not on fileLegal YfqNmnq7711/25/2022 7:12 PM EDTGender IdentityNot on fileSexual OrientationNot on file Last Filed Vital Signs Vital SignReadingTime TakenCommentsBlood Rgbuhflw413/6810 3:09 PM EDT Gpuop99858/23/2025 11:03 AM EDTTemperature--Respiratory Rate--Oxygen Saturation- -Inhaled Oxygen Concentration--Lzqwrb974 kg (272 lb)07/13/2025 3:09 PM EDTHeight 188 cm (6' 2 )07/13/2025 3:09 PM EDTBody Mass Index34.9207/13/2025 3:09 PM EDT Plan of Treatment DateTypeDepartmentCare Team (Latest Contact Info)Hvucpjkaevk22/23/2026 1:20 PM ESTOffice Visit [facility] [address] [facility] [address] [place] [address] Christiano Geiger MD [address] [place] [address] Health MaintenanceDue DateLast DoneCommentsCT Ntlgbidnrale15/21/1970Colonoscopy 1969Colorectal Cancer Kqbmzxzzo29/21/1970FIT-DNA1969FIT1969 FOBT1969 9185Vezrdwqeoridg28/21/1970COVID-19 Vaccine ( season) 512/02/2021, 12/24/2020, 12/02/2020Influenza VaccineCompleted 07/10/2025, 07/07/2024, 07/06/2023, Additional history existsPneumococcal Vaccine: Pediatrics (0 to 5 Years) and At-Risk Patients (6 to 64 Years)Aged Out No longer eligible based on patient's age to complete this topic Insurance * Guarantor: Alden Garces TypeRelation to PatientDate of BirthPhone Billing AddressPersonal/LeasrlNkda56/21/[address] [address] Care Teams Team MemberRelationshipSpecialtyStart DateEnd Date Caden Mendez MD [address] [place] [address] PCP - GeneralFamily Vskdsyty24/31/25
--- OUTSIDE RECORDS SUMMARY | 2025-08-15 11:03 | XMS_ITS | Clinical Summary ---
Author Organization [facility] Address [address] [place] [address] Care Team Providers Care Surgical Asst Name Role Phone Unavailable Primary Care Provider Unavailabl e Source Comments The following information is NOT included in Care Everywhere downloads:Psychiatric notes, ECG results, Cardiac Rehab notes, Pulmonary Function notes, data from [employer] (includes but not limited toPregnancy data,audiograms, eye exams, pre-surgical evaluation notes, well-child exam data).[facility] Medications MedicationSigDispense QuantityRefillsLast FilledStart DateEnd [...] InformationValueDate RecordedSex Assigned at BirthNot on fileLegal EpwOfzs03/12/2012 1:17 PM ESTGender IdentityNot on file Sexual OrientationNot on file Plan of Treatment Health MaintenanceDue DateLast VwspDvkrljwcZvqooifypdl46/21/1970HIV Test 1984Hepatitis C Xtpwimcs02/21/1988Tdap Nbslqzg3810/03/1987Hepatitis A (HAV) Vaccine (optional start 19+ years)1988Hepatitis B (HBV) Vaccine (1 of 3 - 19+ 3-dose series)1988Tetanus (Td or Tdap) Lkadnye8010/03/1988Cholesterol 2004CRC Thtulzoqe71/21/2015Cologuard (Stool DNA)2014FIT2014 Pneumococcal Vaccine(s) (50+ yrs) (1 of 1 - PCV)2019Shingles (RZV) Vaccine (1 of 2)2019COVID-19 Vaccine (1 - 2024- season)2025Influenza Vaccine (#1)2025 Insurance
--- OUTSIDE RECORDS SUMMARY | 2025-08-15 11:07 | XMS_ITS | CCD ---
Author Organization [facility] CliniSyar Care Team Providers Care Car Dumper Operator Helper Name Role Phone UNKNOWN, PROVIDER Admitting [...] Surgeon Unavailable Venus Jaeger Primary Care Physician [phone] DONOVAN Admitting Unavailable HOY [...] Provider Venus Jaeger MD Primary Care Provider [phone] Yoni MAGANA, Trey Smith Attending Provider [phone] MARIANNA SUAREZ Referring Unavailable SUYAPA, SHIN Referring [...] [phone] Venus Jaeger MD Primary Care Provider [phone] Jameel Coats DO Attending Provider [phone] Bonnie Ernandez MD Attending Provider Trey Vallejo Attending Unavailable Trey Vallejo Admitting Unavailable Bonnie Ernandez Attending Unavailable Bonnie Ernandez Admitting Unavailable Jameel Coats Attending Unavailable Jameel Coats Admitting Unavailable Venus Jaeger Primary Care Unavailable Venus Jaeger MD Primary Care Provider [phone] RUBÉN GEIGER Attending Unavailable RUBÉN GEIGER Attending Unavailable RUBÉN GEIGER Attending Unavailable HEATHER RAINEY Attending Unavailab le Allergies Allergy ClassificationReported Allergen(s)Allergy TypeDate of OnsetReaction(s) Facility (1 source)AspartameDrug Pxrealf42-16-2358Xfy [facility] (1 source)avoid; Translations: [Unknown]Propensity to adverse reactions (disorder)55-42-4714Gan [facility] (1 source)vitamin B12; Translations: [cyanocobalamin]Drug AllergyUnknown (qualifier value)[facility] (1 source)Acetaminophen / HYDROcodoneDrug AllergyThe [facility] (1 source)CorticosteroidsDrug allergy (disorder)[facility] (1 source)fentaNYLDrug AllergyThe [facility] (1 source)Misc-Food; Translations: [Misc-Food]Food allergy (disorder)[facility] (20 sources)fentaNYLDrug Gzjtjqg84-35-1644UeewiqmVYE[facility] (20 sources)HYDROcodoneDrug Iaauzju23-66-5030PlujaxiCOYP [facility] (20 sources)Morphine And CodeineDrug Shumwcb91-77-3256MtozkcpGNSU [facility] (20 sources)OtherPropensity to adverse etrfrrprh09-88-8936YXCA [facility] (1 source)CorticosteroidsDrug allergy (disorder)48-22-4832[facility] Medications Current Medications MedicationDrug Class(es)DatesSig (Normalized)Sig (Original)acetaminophen 325 mg / HYDROcodone bitartrate 5 mg oral tablet (20 sources)Opioid AgonistStart: 53-04-9121IDOZDllvzts-acetaminophen ([place]) 5- 325 MG tablet 03/20/2024 Activeamantadine hydrochloride 100 mg oral tablet (20 sources)Influenza A M2 Protein InhibitorStart: 05-07-2025 End: 91-47-5225mtwx 1 tablet by mouth in the morningamantadine (Symmetrel) 100 MG tablet Indications: Excessive daytime sleepiness , Primary insomnia TAKE 1 TABLET (100 MG) BY MOUTH IN THE MORNING AND AT NOON 60 tablet 11 05/16/2025 05/16/2026 ActiveStart: 04-10-2024 End: 08-73-9392oqdf 1 tablet by mouth in the morningamantadine (Symmetrel) 100 MG tablet Indications: Excessive daytime sleepiness , Primary insomnia Take 1 tablet (100 mg) by mouth in the morning and at noon 180 tablet 3 04/10/2024 04/10/2025 Activeaspirin 81 mg delayed release oral tablet (20 sources)Platelet Aggregation Inhibitor, Nonsteroidal Anti-inflammatory Drug Start: 44-79-2113qyks 1 tablet by mouth once dailyASPIRIN 81 MG chewable tablet Chew 81 mg in the morning. ActiveB-D 3CC LUER-SAYRA SYR 23GX1 23G X 1 3 ML misc (20 sources)Start: 62-42-2436P-D 3CC LUER-SAYRA SYR 23GX1 23G X 1 3 ML misc USE 1 SYRINGE INTRAMUSCULARLY ONCE A WEEK 05/18/2023ctiveBiotin (20 sources)Start: 45-01-7972TCUADT BIOTIN Start Date: 02/26/22 Status: Ordered Start: 14-90-9466glax 1 tablet by mouth once dailycelecoxib 100 mg oral capsule (20 sources)Nonsteroidal Anti-inflammatory DrugCeleBREX 100 MG capsule 1 (one) time each day at the same time Activecholecalciferol 0.125 mg oral capsule (20 sources)Vitamin DStart: 11-55-7397vdnjmmhfjrrmdaj (Vitamin D-3) 125 MCG (5000 UT) capsule 03/15/2024 ActiveclonazePAM 1 mg oral tablet (20 sources)BenzodiazepineStart: 03-27-2024 End: 93-57-8089xgzz 1 tablet by mouth at bedtimeclonazePAM (KlonoPIN) 1 MG tablet Indications: Primary insomnia Take 1 tablet (1 mg) by mouth at bedtime 30 tablet 2 07/04/2024 ActiveStart: 89-78-1695RiuqaysFGJ 0.5 mg Tab Refills(s) 0 Start Date: 02/26/22 Status: OrderedStart: 28-92-8410qjsu 2 tablets by mouth at bedtimeStart: 00-87-7863ehfh 1 mg by mouth at bedtimeClonazepam Active 0.05 mg/kg PO Bedtime May 14, 2018 12:00amdiazePAM 5 mg oral tablet (5 sources)BenzodiazepineStart: 51-85-5812qzbq 1 tablet by mouth at bedtime diclofenac sodium 75 mg delayed release oral tablet (5 sources)Nonsteroidal Anti-inflammatory DrugStart: 16-86-9468bqww 1 tablet by mouth twice dailydoxazosin 8 mg oral tablet (20 sources)alpha-Adrenergic BlockerStart: 46-94-9849marropejz 8 mg oral tablet Refills(s) 0 Start Date: 02/26/22 Status: Ordereddoxepin hydrochloride 10 mg oral capsule (20 sources)Tricyclic AntidepressantStart: 85-14-6498cveiwsq 10 mg Cap Refills(s) 0 Start Date: [...] 600 mg oral tablet (20 sources)Anti-epileptic AgentStart: 15-35-0897arjx 1 tablet by mouth three times dailyglycopyrrolate 1 mg oral tablet (20 sources)Start: 46-80-7230stnw 1 tablet by mouth in the morningglycopyrrolate (Robinul) 1 MG tablet Take 1 mg by mouth in the morning and 1 mg before bedtime. 01/22/2023 ActiveStart: 04-52-7395apmwgqiyoyveka 1 mg oral tablet Refills(s) 0 Start Date: 02/26/22 Status: OrderedhydrOXYzine pamoate 25 mg oral capsule (20 sources)AntihistamineStart: 87-46-0026tdab 1 capsule by mouth once daily at bedtimehydrOXYzine pamoate (Vistaril) 25 MG capsule Indications: Primary insomnia TAKE ONE CAPSULE BY MOUTH ONCE DAILY AT BEDTIME 30 capsule 11 05/11/2024 Activelisinopril 10 mg oral tablet (5 sources)Angiotensin Converting Enzyme InhibitorStart: 07-67-9409szul 1 tablet by mouth once dailymeclizine hydrochloride 25 mg chewable tablet (20 sources)AntiemeticMeclizine HCl 25 MG chewable tablet Chew 25 mg 1 (one) time each day at the same time. Activemelatonin 10 mg oral capsule (20 sources)Start: 07-14-2023 End: 11-08-8388jpur 1 capsule by mouth at bedtimeMelatonin 10 MG capsule Indications: Primary insomnia Take 10 mg by mouth at bedtime 90 capsule 3 07/04/2025 ActiveMultiple Vitamins-Minerals (Multi For Him 50+) tablet (20 sources)Multiple Vitamins-Minerals (Multi For Him 50+) tablet as directed Orally Activeomeprazole 40 mg delayed release oral capsule (5 sources)Proton Pump InhibitorStart: 84-61-6401rjgp 1 capsule by mouth twice dailyondansetron 4 mg oral tablet (20 sources)Serotonin-3 Receptor AntagonistStart: 11-14-2024 End: 04-97-6091mjqa 2 tablets by mouth every eight hours for nauseaondansetron (Zofran) 4 MG tablet Indications: Projectile vomiting with nausea Take 2 tablets (8 mg)by mouth every 8 (eight) hours if needed for nausea or vomiting 30 tablet 3 11/14/2024 12/14/2024 ActiveStart: 17-90-6294lcqitxbpuin ODT (Zofran-ODT) 4 MG disintegrating tablet 03/15/2024 ActiveStart: 50-33-2678fmeoixptfxn (Zofran) 4 MG tablet Take 4 mg by mouth if needed. ActiveOXcarbazepine 300 mg oral tablet (20 sources)Anti-epileptic Agenttake 1 tablet by mouth at bedtimeOXcarbazepine (Trileptal) 300 MG tablet Take 300 mg by mouth at bedtime. Activeoxybates, calcium, magnesium, potassium and sodium, (Xywav) 500 MG/ML solution (2 sources)Start: 04-04-2025 End: 15-88-2822bjpi 3.75 g by mouth at bedtimeoxybates, calcium, magnesium, potassium and sodium, (Xywav) 500 MG/ML solution Indications: Narcolepsy cataplexy syndrome (HCC) Take 3.75 g by mouth at bedtime 225 mL 2 04/04/2025 05/04/2025 Activepotassium chloride 10 meq extended release oral tablet (20 sources)Start: 44-12-5289waob 1 tablet by mouth at mealtimepotassium chloride CR (Klor-Con) 10 MEQ ER tablet Take 10 mEq by mouth in the morning. Take with food. . 02/22/2023 Activesennosides, intermediate 8.6 mg oral tablet (20 sources)Start: 27-02-0820fbajo (Senokot) 8.6 MG tablet 03/15/2024 Active simvastatin 20 mg oral tablet (20 sources)HMG-CoA Reductase InhibitorStart: 82-82-4541ooln 1 tablet by mouth once dailySUMAtriptan 100 mg oral tablet (20 sources)Serotonin-1b and Serotonin-1d Receptor AgonistStart: 72-31-5586akpz 1 tablet by mouth onceSUMAtriptan (Imitrex) 100 MG tablet Take 100 mg by mouth 1 (one) time if needed. Active1 ml testosterone cypionate 200 mg/ml injection (20 sources)Androgentestosterone cypionate (Depo-Testosterone) 200 MG/ML injection Inject 200 mg into the shoulder, thigh, or buttocks every 14 (fourteen) days. Activethiamine 100 mg oral tablet (15 sources)Start: 07-05-2024 End: 09-15-2268gdad 1 tablet by mouth once dailythiamine (Vitamin B-1) 100 MG tablet Indications: Excessive daytime sleepiness Take 1 tablet (100 mg) by mouth Daily 30 tablet 11 07/05/2024 07/05/2025 ActivetiZANidine 4 mg oral capsule (20 sources)Central alpha-2 Adrenergic AgonistStart: 22-16-7946fhqs 1 capsule by mouth at bedtimetake 1 tablet by mouth at bedtimetiZANidine (Zanaflex) 4 MG tablet Take 4 mg by mouth at bedtime. ActiveVit D3-Folic Jnlq-H6-L1-B12 (1 source)Start: 73-64-9232pqpr 1 tablet by mouth once dailyVit D3-Folic Ioav-S6-I0-B12 Active 1 TAB PO Daily May 14, 2018 12:00amVit D3-Folic Qldk-T7-V7-B12 2,000-800-0.32 unit-mcg-mg Tablet (4 sources)Start: 88-87-3745babt 1 tablet by mouth once dailyStart: 05-14-2018 take 1 tablet by mouth once dailyVit D3-Folic Tgjc-L4-K4-B12 2,000-800-0.32 unit-mcg-mg Tablet Active 1 TAB PO Daily May 13, 2018 11:00pm Completed/Discontinued Medications MedicationDrug Class(es)DatesSig (Normalized)Sig (Original)apixaban 5 mg oral tablet (3 sources)Factor Xa InhibitorStart: 23-78-0365Qfydmqdk (Eliquis) 5 mg tablet Discontinued MG PO May 07, 2025 12:00amcarvedilol 25 mg oral tablet (20 sources)alpha-Adrenergic Jorge L, beta-Adrenergic BlockerStart: 02-26-2022 Carvedilol 25 mg tablet Discontinued MG PO May 07, 2025 12:00amStart: 48-08-1152jhnh 1 tablet by mouth twice dailycitalopram 40 mg oral tablet (20 sources)Serotonin Reuptake InhibitorStart: 65-94-8492Xlxldzhcbk 40 mg tablet Discontinued MG PO May 07, 2025 12:00amStart: 31-87-0987JhdsSR 20 MG tablet 1 (one) time each day at the same time. 06/02/2023 Activefurosemide 20 mg oral tablet (20 sources)Loop DiureticStart: 45-32-4522Atpetwfvtf 20 mg tablet Discontinued MG PO May 07, 2025 12:00ammodafinil 200 mg oral tablet (20 sources)Sympathomimetic-like AgentStart: 05-07-2025 End: 69-52-5720dtfy 1 tablet by mouth in the morningmodafinil (Provigil) 200 MG tablet Indications: Excessive daytime sleepiness , Obstructive sleep apnea TAKE 1 TABLET (200 MG) BY MOUTH IN THE MORNING AND AT NOON 60 tablet 2 05/16/2025 07/13/2025 Discontinued (Reorder)Start: 04-10-2024 End: 57-28-2409bkut 1 tablet by mouth in the morningmodafinil (Provigil) 200 MG tablet Indications: Excessive daytime sleepiness , Obstructive sleep apnea Take 1 tablet (200 mg) by mouth in the morning and at noon 180 tablet 01/03/2025 ActiveStart: 00-62-8067cjgmqhkjj 200 mg Tab Refills(s) 0 Start Date: 02/26/22 Status: Orderedpantoprazole 40 mg delayed release oral tablet (20 sources)Proton Pump InhibitorStart: 95-62-9149Xsjvymcsvfum 40 mg tablet,delayed release (DR/EC) Discontinued MG PO May 07, 2025 12:00am Problems Active Problems Problem ClassificationProblemDateDocumented DateEpisodic/ChronicAnxiety disorders (20 sources)Anxiety disorder, unspecified; Translations: [Anxiety disorder] Onset: 423664-21-2171XuvwzoxYxncfuwqo and vision defects (1 source)Unspecified visual loss; Translations: [UNSPECIFIED VISUAL LOSS]Onset: 51-15-3463VznqkcaQkvfcxwuma heart failure; nonhypertensive (20 sources)Chronic combined systolic and diastolic heart failure; Translations: [Chronic combined systolic (congestive) and diastolic (congestive) heart failure]Onset: 799942-56-5636IlarnutDdqkknrw, dementia, and amnestic and other cognitive disorders (20 sources)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; Translations: [Unspecified mental disorder due to known physiological condition]Onset: 542064-08-2863VohjhqkRtnavder mellitus without complication (20 sources)Type 2 diabetes mellitus without complications; Translations: [Diabetes mellitus without complication]Onset: hronic Disorders of lipid metabolism (1 source)Pure hypercholesterolemia, unspecified; Translations: [PURE HYPERCHOLESTEROLEMIA UNSPEC]Onset: 50-60-5570KuiktnhC Codes: Place of occurrence (2 sources)Unspecified place in unspecified non-institutional (private) residence as the place of occurrence of the external cause; Translations: [Unspecified place in unspecified non-institutional (private) residence as the place of occurrence of the external cause]Onset: 32-30-7956TzvhwmqzDvhbjwkxmr disorders (1 source)Gastro-esophageal reflux disease without esophagitis; Translations: [GERD WITHOUT ESOPHAGITIS]Onset: 71-69-9546HcebsphZlrnukyzn hypertension (20 sources)Essential (primary) hypertension; Translations: [Hypertensive disorder]Onset: 011794-19-0306TxxufbyEltabmys; including migraine (20 sources)Migraine; Translations: [Migraine, unspecified, not intractable, without status migrainosus]Onset: 945516-01-7457VztruvuSgkwyjwrmkc of prostate (1 source)Benign prostatic hypertrophy without outflow obstruction; Translations: [Benign prostatic hyperplasia without lower urinary tract symptoms]Onset: 59-53-9979SwhceqfLjvdzjdxihom with complications and secondary hypertension (15 sources)Hypertensive heart failure; Translations: [Hypertensive heart disease with heart failure]Onset: 982085-19-9952LtusyilIdhjkiyvtfxyu mental health disorders (20 sources)Primary insomnia; Translations: [Primary insomnia]Onset: 03-11-2023 90-85-7223GfrjubtNohq disorders (1 source)Major depressive disorder, single episode, unspecified; Translations: [MARITZA DEPRESS D/O SINGLE EPIS UNS]Onset: 00-34-6333MqrwjzlVbam disorders (1 source)Mood disorders; Translations: [DEPRESSION UNSPECIFIED]Onset: 59-88-9433Aavhhw and vomiting (1 source)Projectile vomiting; Translations: [Projectile vomiting]11-14-2024 EpisodicOsteoarthritis (20 sources)Unspecified osteoarthritis, unspecified site; Translations: [Arthritis of right acromioclavicular joint]Onset: hronic Other aftercare (1 source)intermission coordinator (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; Translations: [RECREATION PROFESSOR 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 ASPIRIN]Onset: 49-09-5249ParjicasKlglz aftercare (1 source)Other rat exterminator (current) drug therapy; Translations: [OTH RECREATION PROFESSOR CURRENT DRUG THERAPY]Onset: 61-71-2029EitiyctxYxtaa bone disease and musculoskeletal deformities (3 sources)Hypertrophy of bone; Translations: [Hypertrophy of bone, unspecified tibia and fibula]27-64-3676YdlshfyjJctjb bone disease and musculoskeletal deformities (1 source)Hypertrophy of bone, unspecified tibia and fibula; Translations: [Hypertrophy of bone, unspecified tibia and fibula]Onset: 80-58-2060Ipzkjvtv Other connective tissue disease (3 sources)Pain in right forearm; Translations: [PAIN IN RIGHT FOREARM]Onset: 44-51-3543VkeoxjrjDpsch connective tissue disease (1 source)Arthrodesis status; Translations: [ARTHRODESIS STATUS]Onset: 82-82-7782PiuzyszoFqzsb connective tissue disease (2 sources)Muscle weakness of upper limb; Translations: [Other symptoms and signs involving the musculoskeletal system]89-25-7937CvyxvudxDfzgdmx on above: Problem List clean-up per request of Phys. EHR CmteOther connective tissue disease (3 sources)Pain in right lower limb; Translations: [Pain in right leg]05-07-2025 EpisodicOther diseases of veins and lymphatics (1 source)Varicocele; Translations: [Scrotal varices]Onset: 73-91-4459Rdtsrpfy Other ear and sense organ disorders (1 source)Unspecified hearing loss, unspecified ear; Translations: [UNS HEARING LOSS UNSPECIFIED EAR]Onset: 95-25-5421GjaohezPhfgz endocrine disorders (4 sources)Testicular hypofunction; Translations: [TESTICULAR HYPOFUNCTION] Onset: 66-22-0723OwznofdWlfmc inflammatory condition of skin (1 source)Psoriasis, unspecified; Translations: [PSORIASIS UNSPECIFIED]Onset: 61-00-4110EpqjwgcCyuod injuries and conditions due to external causes (1 source)Unspecified injury of head, initial encounter; Translations: [UNSPECIFIED INJURY HEAD INITIAL ENC]Onset: 53-50-1553GgcbgatjXqley male genital disorders (20 sources)Secondary erectile dysfunction; Translations: [Male erectile dysfunction, unspecified]Onset: 421754-30-1715OvhkhllGerlh male genital disorders (1 source)Hydrocele of testis; Translations: [Hydrocele, unspecified]Onset: 26-32-6453CvdqtxhwQfkit nervous system disorders (1 source)Narcolepsy without cataplexy; Translations: [NARCOLEPSY WITHOUT CATAPLEXY]Onset: 76-85-9157UijywitPsyld nervous system disorders (1 source)Other chronic pain; Translations: [OTHER CHRONIC PAIN]Onset: 79-56-7790JgaecsoYexmo nervous system disorders (1 source)Polyneuropathy, unspecified; Translations: [POLYNEUROPATHY UNSPECIFIED]Onset: 20-82-9658WmdpppiNzrvi nervous system disorders (20 sources)Carpal tunnel syndrome of right wrist; Translations: [Carpal tunnel syndrome, right upper limb]Onset: 672354-36-8167FeyiqgpQlbis nervous system disorders (20 sources)Lesion of ulnar nerve, right upper limb; Translations: [Lesion of ulnar nerve]Onset: 378845-58-4519WzmsojeLpcez nervous system disorders (20 sources)Chronic pain; Translations: [Other chronic pain]Onset: 12-30-2017 13-92-3057KksuagfKreew nervous system disorders (20 sources)Ulnar nerve entrapment; Translations: [Lesion of ulnar nerve, unspecified upper limb]Onset: 063429-43-7606XomfqkyWtjeo nervous system disorders (20 sources)Cataplexy and narcolepsy; Translations: [Narcolepsy with cataplexy] Onset: 419483-21-7479MhjqmbcRgsvj nutritional; endocrine; and metabolic disorders (15 sources)Obesity; Translations: [Obesity, unspecified]Onset: 09-24-2024 41-95-4209MeergzpPsbl-; endo-; and myocarditis; cardiomyopathy (except that caused by tuberculosis or sexually transmitted disease) (15 sources)Cardiomyopathy; Translations: [Other cardiomyopathies]Onset: 955194-88-1244LxmepmkEfsrkaob codes; unclassified (1 source)Sleep apnea, unspecified; Translations: [SLEEP APNEA UNSPECIFIED] Onset: 44-78-4347XwvvtzwGbdxjbjq codes; unclassified (20 sources)Daytime somnolence; Translations: [Other hypersomnia]Onset: 157639-65-7876HxrhnaiXxpqknvt codes; unclassified (20 sources)Obstructive sleep apnea syndrome; Translations: [Obstructive sleep apnea (adult) (pediatric)]Onset: 312751-23-7744FyddbkdJytmaegz codes; unclassified (2 sources)Obstructive sleep apnea (adult) (pediatric); Translations: [Obstructive sleep apnea (adult) (pediatric)]Onset: 23-26-8293ArdcfmzOvuzvezf codes; unclassified (5 sources)Other hypersomnia; Translations: [Hypersomnia, unspecified]Onset: 707391-88-2004ZnmgwcwCilhbeklaqd; intervertebral disc disorders; other back problems (20 sources)Cervical disc disorder; Translations: [Cervical disc disorder, unspecified, unspecified cervical region]Onset: hronic Superficial injury; contusion (2 sources)Contusion of right forearm, initial encounter; Translations: [Contusion of other part of head, initial encounter]Onset: 50-71-2971Oaivpsiz Unclassified (1 source)CONTACT W/AND (SUSP) EXPOS COVID-19; Translations: [CONTACT W/AND (SUSP) EXPOS COVID-19]Onset: 01-19-2022 Past or Other Problems Problem ClassificationProblemDateDocumented DateEpisodic/ChronicComa; stupor; and brain damage (20 sources)Clouded consciousness; Translations: [Stupor]Onset: 03-03-2012 47-24-4975RdsgujvkR Codes: Fall (18 sources)Unspecified fall, initial encounter; Translations: [Fall in home] Onset: 99-97-1365EswjjdrkW Codes: Natural/environment (1 source)Exposure to other specified factors, initial encounter; Translations: [EXPOSURE OTHER SPEC FACTORS INITIAL]Onset: 55-53-9431PlxxsnolOgojebxk of lower limb (20 sources)Unspecified fracture of shaft of right tibia, initial encounter for closed fracture; Translations: [Unspecified fracture of shaft of right fibula, initial encounter for closed fracture]Onset: 85-32-4984CpsybwjjTwxqziqqg and duodenitis (20 sources)Gastritis; Translations: [Gastritis, unspecified, without bleeding] Onset: 635248-43-8366QohxjmzkDsbzx valve disorders (20 sources)Systolic murmur; Translations: [Cardiac murmur, unspecified]Onset: 032889-86-3202KkkyxwkcWoooqetinfjdw and screening for infectious disease (1 source)Encounter for immunization; Translations: [ENCOUNTER FOR IMMUNIZATION] Onset: 25-36-4304OihkgtvcMeagghfjzgtt conditions of male genital organs (4 sources)Inflammatory disorders of scrotum; Translations: [INFLAMMATORY DISORDERS OF SCROTUM]Onset: 37-53-0632UvomzeygOcmzcii and fatigue (20 sources)Fatigue; Translations: [Other fatigue]Onset: EpisodicNoninfectious gastroenteritis (20 sources)Gastroenteritis; Translations: [Noninfective gastroenteritis and colitis, unspecified]Onset: 416979-69-3039JatckjlnUdnnjbqpsvy chest pain (20 sources)Chest discomfort; Translations: [Other chest pain]Onset: 11-30-2011 35-53-3468UflwhmwnVcfg wounds of extremities (19 sources)Puncture wound without foreign body, left foot, initial encounter; Translations: [Open wound of left great toe]Onset: 79-01-5939KlggzsmgAgdpq circulatory disease (20 sources)Capillary hemangioma; Translations: [Nevus, non-neoplastic]Onset: 672178-11-4308VwxloddrAgkpk connective tissue disease (20 sources)Spasm of cervical paraspinous muscle; Translations: [Other muscle spasm]Onset: 719713-35-9183TcvdnsjcJbpmw connective tissue disease (20 sources)Bursitis; Translations: [Bursopathy, unspecified]Onset: 02-27-2011 81-98-0474JpuszscqLyuia connective tissue disease (20 sources)Foot pain; Translations: [Pain in unspecified foot]Onset: 10-07-2012 39-22-6426BhuadrdsTdlwh connective tissue disease (20 sources)Muscle pain; Translations: [Myalgia, unspecified site]Onset: 173377-40-1165JudkjytzFxucx connective tissue disease (20 sources)Impingement syndrome of shoulder region; Translations: [Impingement syndrome of unspecified shoulder]Onset: 725048-91-4877TgufhzmbTcfda connective tissue disease (20 sources)Lateral epicondylitis; Translations: [Lateral epicondylitis, unspecified elbow]Onset: 933504-92-4667GkqlmdevKcihk connective tissue disease (20 sources)Other symptoms and signs involving the musculoskeletal system; Translations: [Other musculoskeletalsymptoms referable to limbs]Onset: 989813-49-7998LuoodibvFutwtrm on above:Problem List clean-up per request of Phys. EHR CmteOther lower respiratory disease (20 sources)Dyspnea; Translations: [Dyspnea, unspecified]Onset: 11-30-2011 32-83-2964WkdndyfvXhwih nervous system disorders (20 sources)Numbness of upper limb; Translations: [Anesthesia of skin]Onset: 510551-94-7334TkbsbcciUywguar on above:Problem List clean-up per request of Phys. EHR CmteOther non-traumatic joint disorders (20 sources)Ankle edema; Translations: [Effusion, unspecified ankle]Onset: 281354-05-1639UkxgpuayHhhqc non-traumatic joint disorders (20 sources)Joint pain; Translations: [Pain in unspecified joint]Onset: 989513-73-9056GtmlpdeyIxcog screening for suspected conditions (not mental disorders or infectious disease) (20 sources)Encounter for screening for malignant neoplasm of prostate; Translations: [Elevated prostate specific antigen [PSA]]Onset: 03-13-2022 EpisodicOther skin disorders (20 sources)Excessive sweating; Translations: [Generalized hyperhidrosis]Onset: 466828-98-3648VttldawmCjzjs skin disorders (20 sources)Senile hyperkeratosis; Translations: [Actinic keratosis]Onset: 143821-72-9090KoujhnjbPpmcm skin disorders (20 sources)Hyperhidrosis; Translations: [Generalized hyperhidrosis]Onset: 885530-38-0655ZrqdkxcnPwmiw upper respiratory infections (20 sources)Upper respiratory infection; Translations: [Acute upper respiratory infection, unspecified]Onset: 918761-70-6923DamgjqrbDmes and subcutaneous tissue infections (20 sources)Cellulitis; Translations: [Cellulitis, unspecified]Onset: 03-31-2013 60-48-5383YkrtbvzjCgsqedvkkyu; intervertebral disc disorders; other back problems (20 sources)Cervical disc prolapse with radiculopathy; Translations: [Cervical disc disorder with radiculopathy, unspecified cervical region]Onset: 10-11-2018 19-29-6161WtgdpsxzHcozhvd on above:Problem List clean-up per request of Phys. EHR CmteUrinary tract infections (20 sources)Urinary tract infectious disease; Translations: [Urinary tract infection, site not specified]Onset: [id number] Results Test NameValueInterpretationReference RangeFacilityCT lower leg RT wo pool 89-07-2658XC lower leg RT wo [facility] [place] [address] CT Scan Report Signed Patient: Matty Garces MR#: [id number] : 1970 Acct:[id number] Age/Sex: 54 / M ADM Date: 05/29/25 Loc: CT Room: Type: [facility] CLI Attending Dr: Jameel Coats DO [...] Irving M.D. 05/29/2025 11:40 PM Dictation Location: [place] [address] Transcribed By: [facility] 05/29/25 2340 Dictated By: Francis Irving II, MD 05/29/25 0187 Signed By: 05/29/25 2340[facility] Physician GroupECG 12-LEADon [id number], [place] [address] Electrocardiograph Report Signed Patient: MATTY GARCES MR#: [id number] : 1970 Acct:[id number] Age/Sex: 54 / M ADM Date: 03/05/25 Loc: [place] 221-[address]: Venus Jaeger M.D. 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 Measurements Intervals Madeline Rate: 76 P: 60 ND: 178 QRS: 69 QRSD: 100 T: 46 QT: 406 QTc: 437 Interpretive Statements 1100 Sinus rhythm 0102 ARTIFACT PRESENT 9110 normal ECG Compared to ECG 09/23/2024 05:51:07 No significant changes Electronically Signed On 03-06-2025 9:29:34 EDT by RAMIRO WALLS M.D. Dictated By: RAMIRO WALLS Signed By: 03/06/2529 DD/ 06 TD/TT: Smart Grid Engineer:TBHRadiology, Radiologist, - 03/06/[address] [address] Electrocardiograph Report Signed Patient: MATTY GARCES MR#: [id number] : 1970 Acct:[id number] Age/Sex: 54 / M ADM Date: 03/05/25 Loc: [place] 221-[address]: Venus Jaeger M.D. 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 Measurements Intervals Madeline Rate: 76 P: 60 ND: 178 QRS: 69 QRSD: 100 T: 46 QT: 406 QTc: 437 Interpretive Statements 1100 Sinus rhythm 0102 ARTIFACT PRESENT 9110 normal ECG Compared to ECG 09/23/2024 05:51:07 No significant changes Electronically Signed On 03-06-2025 9:29:34 EDT by RAMIRO WALLS M.D. Dictated By: RAMIRO WALLS Signed By: 03/06/25928 DD/ 06 TD/TT: Smart Grid Engineer: JEWELS Packer 12-LEADOrdered By: Radiologist Radiology on [id number] Work Phone: ECG 12-LEADon 73-26-3851Dngvkvxpp Study observation (narrative)JEWELS LandryBASIC METABOLIC PANELon 62-79-4213Mzxdp gap [Moles/Vol]8 mmol/LNormal7-20UnAvita Health System Galion HospitalComment on above:Performed By: #### [id number] #### [facility] ([facility]) [address] [place], [place] [address]Pukzpph [Mass/Vol]9.7 mg/dLNormal8.6-10.3UnAvita Health System Galion HospitalComment on above:Performed By: #### [id number] #### [facility] ([facility]) [address] [place], [place] [address]Beuearik [Moles/Vol]97 mmol/GNrl03-869IngrfhjsnuAvita Health System Galion HospitalComment on above:Performed By: #### [id number] #### [facility] ([facility]) [address] [place] [address]YK5 [Moles/Vol]35 mmol/RPtkb01-04WvhrrzvhuzAvita Health System Galion HospitalComment on above:Performed By: #### [id number] #### [facility] ([facility]) [address] [place] [address]Oeispzsbae [Mass/Vol]1.02 mg/dLNormal0.70-1.30UnAvita Health System Galion HospitalComment on above:Performed By: #### [id number] #### [facility] ([facility]) [address] [place] [address]PNHMQVVALZ FILTRATION RATE ML/MIN/1.73 SQ M.VYGLODBWW80.8 mL/min/1.73m*2Normal>60.0UnAvita Health System Galion HospitalComment on above: Result Comment: [facility]???s estimated glomerular filtration rate (eGFR) will [...] affect anyone group of individuals.Performed By: #### [id number] #### [facility] ([facility]) [address] [place] [address]Yiklkba [Mass/Vol]80 mg/kWKqivhk05-311InkjucbhhuAvita Health System Galion HospitalComment on above:Performed By: #### [id number] #### [facility] ([facility]) [address] [place] [address]Peijkcqqj [Moles/Vol]4.2 mmol/LNormal3.5-5.1UnAvita Health System Galion HospitalComment on above:Performed By: #### [id number] #### [facility] ([facility]) [address] [place] [address]Yeohcg [Moles/Vol]136 mmol/NLttsup449-290XadomecjjnAvita Health System Galion HospitalComment on above:Performed By: #### [id number] #### [facility] ([facility]) [address] [place] [address]Uyhm nitrogen [Mass/Vol]8 mg/dLNormal7-25UnAvita Health System Galion HospitalComment on above:Performed By: #### [id number] #### [facility] ([facility]) [address] [place], [place] [address]LJOG NITROGEN/CREATININE (MASS RATIO) IN SER/PLAS7.8Normal [facility] HospitalComment on above:Performed By: #### [id number] #### [facility] ([facility]) [address] [place], [place] [address]HJL WITH AUTO DIFFERENTIALon 36-15-6104Igeuhlujf (Bld) [#/Vol] 0.06 10*3/uLNormal0.00-0.20UnAvita Health System Galion HospitalComment on above: Performed By: #### [id number] ####[facility] ([facility])[address] [place], [place] [address]Vhvesccxd/100 WBC (Bld)0.9 %Normal0.0-1.0UnAvita Health System Galion HospitalComment on above:Performed By: #### [id number] ####[facility] ([facility])[address] [place], [place] [address]Agiywhoxsrs (Bld) [#/Vol]0.21 10*3/uL Normal0.00-0.50UnAvita Health System Galion HospitalComment on above:Performed By: #### [id number] ####[facility] ([facility])[address] [place] [address] Eosinophils/100 WBC (Bld)3.0 %Normal0.0-6.0Un[facility] Comment on above:Performed By: #### [id number] ####[facility] ([facility])[address] [place], [place] [address]Vvnookmblcu distribution width (RBC) [Ratio]16.7 % High11.5-15.0UnAvita Health System Galion HospitalComment on above:Performed By: #### [id number] ####[facility] ([facility])[address] [place] [address] ERYTHROCYTE MEAN CORPUSCULAR HEMOGLOBIN CONCENTRATION (G/DL) BY JMVZBPYON92.9 g/dLLow32.0-35.0UnAvita Health System Galion HospitalComment on above:Performed By: #### [id number] ####[facility] ([facility])[address] [place], [place] [address]Tfqshdpzze (Bld) [Volume fraction]44.5 %Ylleyy97.0-55.0UnAvita Health System Galion HospitalComment on above:Performed By: #### [id number] ####[facility] ([facility])[address] [place], [place] [address]Bsyhoiclgu (Bld) [Mass/Vol]13.3 g/dL Pvsyoi90.0-17.0UnAvita Health System Galion HospitalComment on above:Performed By: #### [id number] ####[facility] ([facility])[address] [place] [address] Immature granulocytes (Bld) [#/Vol]0.11 10*3/uLNormal0.00-0.20UnAv[facility] Health System Gal[facility] HospitalComment on above:Performed By: #### [id number] ####[facility] ([facility])[address] [place], [place] [address]Mdoxvpqk granulocytes/100 WBC (Bld)1.6 %High0.0-1.0UnAvita Health System Galion HospitalComment on above: Performed By: #### [id number] ####[facility] ([facility])[address] [place], [place] [address]Jnixefbjplt (Bld) [#/Vol]0.91 10*3/uLLow1.20-4.00UnAv[facility] Health System Gal[facility] HospitalComment on above:Performed By: #### [id number] ####[facility] ([facility])[address] [place], [place] [address]Anuuywzmnrl/100 WBC (Bld) 12.9 %Low20.0-45.0UnAv[facility] Health System Gal[facility] HospitalComment on above:Performed By: #### [id number] ####[facility] ([facility])[address] [place], [place] [address]LPF (RBC) [Entitic mass]26.9 pgLow27.0-33.0UnAvita Health System Galion HospitalComment on above:Performed By: #### [id number] ####[facility] ([facility])[address] [place], [place] [address]XWT (RBC) [Entitic vol]89.9 fLNormal 82.0-98.0UnAvita Health System Galion HospitalComment on above:Performed By: #### [id number] ####[facility] ([facility])[address] [place] [address] Monocytes (Bld) [#/Vol]0.65 10*3/uLNormal0.10-1.00UnAv[facility] Health System Gal[facility] HospitalComment on above:Performed By: #### [id number] ####[facility] ([facility])[address] [place], [place] [address]Xjsurszlf/100 WBC (Bld)9.2 %Normal 5.0-12.0UnAvita Health System Galion HospitalComment on above:Performed By: #### [id number] ####[facility] ([facility])[address] [place] [address] Neutrophils (Bld) [#/Vol]5.11 10*3/uLNormal1.60-7.60UnAv[facility] Health System Gal[facility] HospitalComment on above:Performed By: #### [id number] ####[facility] ([facility])[address] [place], [place] [address]Vbzxenyzjvh/100 WBC (Bld)72.4 %High 40.0-72.0UnAvita Health System Galion HospitalComment on above:Performed By: #### [id number] ####[facility] ([facility])[address] [place] [address]UAAE (PER 100 WBCS) BY AUTOMATED COUNT0.0 %Aunjll8CwuiudadbfAvita Health System Galion Hospital Comment on above:Performed By: #### [id number] ####[facility] ([facility])[address] [place] [address]ABBMSYWWJ (10*3/UL) IN BLOOD AUTOMATED [id number] 10*3/mSQrbryt818-113DhkfdmjvcvAvita Health System Galion HospitalComment on above: Performed By: #### [id number] ####[facility] ([facility])[address] [place], [place] [address]ZBH (Bld) [#/Vol]4.95 10*6/uLNormal4.20-5.70UnAv[facility] Health System Gal[facility] HospitalComment on above:Performed By: #### [id number] ####[facility] ([facility])[address] [place] [address]GLI (Bld) [#/Vol]7.05 10*3/uLNormal4.00-10.60UnAv[facility] Health System Gal[facility] HospitalComment on above: Performed By: #### [id number] ####[facility] ([facility])[address] [place], [place] [address]XEQWU METABOLIC PANELon 69-67-3487Kalrt gap [Moles/Vol]9 mmol/LNormal7-20UnAv[facility] Health System Gal[facility] HospitalComment on above:Performed By: #### [id number] #### [facility] ([facility]) [address] [place], [place] [address]Brsapux [Mass/Vol]9.5 mg/dLNormal8.6-10.3UnAvita Health System Galion HospitalComment on above:Performed By: #### [id number] #### [facility] ([facility]) [address] [place], [place] [address]Rutfoynz [Moles/Vol]96 mmol/UGlh88-291KfiwhhnmwtAvita Health System Galion HospitalComment on above:Performed By: #### [id number] #### [facility] ([facility]) [address] [place] [address]GO9 [Moles/Vol]34 mmol/NZdbp70-33DpdotheremAvita Health System Galion HospitalComment on above:Performed By: #### [id number] #### [facility] ([facility]) [address] [place] [address]Vlkodelgju [Mass/Vol]0.93 mg/dLNormal0.70-1.30UnAvita Health System Gal[facility] HospitalComment on above:Performed By: #### [id number] #### [facility] ([facility]) [address] [address]NOJNVPCSEK FILTRATION RATE ML/MIN/1.73 SQ M.AQUORWKWF79.0 mL/min/1.73m*2Normal>60.0UnAvita Health System Galion HospitalComment on above: Result Comment: [facility]???s estimated glomerular filtration rate (eGFR) will [...] affect anyone group of individuals.Performed By: #### [id number] #### [facility] ([facility]) [address] [place] [address]Cznuein [Mass/Vol]85 mg/mNKpucbd42-163UabqzmwlwsAvita Health System Galion HospitalComment on above:Performed By: #### [id number] #### [facility] ([facility]) [address] [place] [address]Aymsgpmzk [Moles/Vol]4.0 mmol/LNormal3.5-5.1UnAvita Health System Gal[facility] HospitalComment on above:Performed By: #### [id number] #### [facility] ([facility]) [address] [place] [address]Yyrtod [Moles/Vol]135 mmol/ERsp251-448OsjximeursAvita Health System Galion HospitalComment on above:Performed By: #### [id number] #### [facility] ([facility]) [address] [place], [place] [address]Bcyp nitrogen [Mass/Vol]8 mg/dLNormal7-25UnAvita Health System Galion HospitalComment on above:Performed By: #### [id number] #### [facility] ([facility]) [address] [place], [place] [address]WYBV NITROGEN/CREATININE (MASS RATIO) IN SER/PLAS8.6Normal [facility] HospitalComment on above:Performed By: #### [id number] #### [facility] ([facility]) [address] [place], [place] [address]H-CTNTSTXJ PROTEINon 5C REACTIVE PROTEIN (MG/L) IN SER/PLAS11.5 mg/LHigh<=5.0UnAvita Health System Galion HospitalComment on above: Result Comment: Testing performed using a new methodology, turbidimetry. Normal ranges have been updated. Old normal range was <8 mg/L.Performed By: #### [id number] #### [facility] ([facility]) [address] [place], [place] [address]RDK WITH AUTO DIFFERENTIALon 68-55-4101Diljmoyfo (Bld) [#/Vol] 0.08 10*3/uLNormal0.00-0.20UnAvita Health System Gal[facility] HospitalComment on above: Performed By: #### [id number] ####[facility] ([facility])[address] [place], [place] [address]Knbbqjsyz/100 WBC (Bld)1.1 %High0.0-1.0UnAvita Health System Galion HospitalComment on above:Performed By: #### [id number] ####[facility] ([facility])[address] [place], [place] [address]Kwgxiqxzort (Bld) [#/Vol]0.19 10*3/uL Normal0.00-0.50UnAvita Health System Galion HospitalComment on above:Performed By: #### [id number] ####[facility] ([facility])[address] [place] [address] Eosinophils/100 WBC (Bld)2.7 %Normal0.0-6.0[facility] Comment on above:Performed By: #### [id number] ####[facility] ([facility])[address] [place], [place] [address]Nzvbajecmjq distribution width (RBC) [Ratio]16.6 % High11.5-15.0UnAvita Health System Galion HospitalComment on above:Performed By: #### [id number] ####[facility] ([facility])[address] [place] [address] ERYTHROCYTE MEAN CORPUSCULAR HEMOGLOBIN CONCENTRATION (G/DL) BY WSAUMOWGC94.1 g/dLLow32.0-35.0UnAvita Health System Galion HospitalComment on above:Performed By: #### [id number] ####[facility] ([facility])[address] [place], [place] [address]Yrxxpazouu (Bld) [Volume fraction]44.5 %Lnszpk86.0-55.0UnAvita Health System Galion HospitalComment on above:Performed By: #### [id number] ####[facility] ([facility])[address] [place], [place] [address]Dsfycgowwk (Bld) [Mass/Vol]13.4 g/dL Hzoqqn76.0-17.0UnAvita Health System Galion HospitalComment on above:Performed By: #### [id number] ####[facility] ([facility])[address] [place] [address] Immature granulocytes (Bld) [#/Vol]0.10 10*3/uLNormal0.00-0.20UnAvita Health System Galion HospitalComment on above:Performed By: #### [id number] ####[facility] ([facility])[address] [place], [place] [address]Ygzzokfy granulocytes/100 WBC (Bld)1.4 %High0.0-1.0UnAvita Health System Galion HospitalComment on above: Performed By: #### [id number] ####[facility] ([facility])[address] [place], [place] [address]Yihorfwfmgz (Bld) [#/Vol]0.90 10*3/uLLow1.20-4.00UnAvita Health System Galion HospitalComment on above:Performed By: #### [id number] ####[facility] ([facility])[address] [place], [place] [address]Kmcazggvazn/100 WBC (Bld) 12.8 %Low20.0-45.0UnAvita Health System Galion HospitalComment on above:Performed By: #### [id number] ####[facility] ([facility])[address] [place], [place] [address]ZRK (RBC) [Entitic mass]26.9 pgLow27.0-33.0UnAvita Health System Galion HospitalComment on above:Performed By: #### [id number] ####[facility] ([facility])[address] [place], [place] [address]GNU (RBC) [Entitic vol]89.4 fLNormal 82.0-98.0UnAvita Health System Galion HospitalComment on above:Performed By: #### [id number] ####[facility] ([facility])[address] [place] [address] Monocytes (Bld) [#/Vol]0.60 10*3/uLNormal0.10-1.00UnAvita Health System Galion HospitalComment on above:Performed By: #### [id number] ####[facility] ([facility])[address] [facility] [place], [place] [address]Fcgyooran/100 WBC (Bld)8.5 %Normal 5.0-12.0UnAvita Health System Galion HospitalComment on above:Performed By: #### [id number] ####[facility] ([facility])[address] [place] [address] Neutrophils (Bld) [#/Vol]5.17 10*3/uLNormal1.60-7.60UnAvita Health System Gal[facility] HospitalComment on above:Performed By: #### [id number] ####[facility] ([facility])[address] [place] [address]Jfpktirsrxv/100 WBC (Bld)73.5 %High 40.0-72.0UnAvita Health System Galion HospitalComment on above:Performed By: #### [id number] ####[facility] ([facility])[address] [place] [address]BACH (PER 100 WBCS) BY AUTOMATED COUNT0.0 %Kprbkn9KwkkdcckcdAvita Health System Galion Hospital Comment on above:Performed By: #### [id number] ####[facility] ([facility])[address] [place] [address]PWNLKWKPY (10*3/UL) IN BLOOD AUTOMATED PPAYJ870 10*3/jQBdrdcx011-855QmspoudjarAvita Health System Galion HospitalComment on above: Performed By: #### [id number] ####[facility] ([facility])[address] [place] [address]AFT (Bld) [#/Vol]4.98 10*6/uLNormal4.20-5.70UnAvita Health System Galion HospitalComment on above:Performed By: #### [id number] ####[facility] ([facility])[address] [place] [address]TOS (Bld) [#/Vol]7.04 10*3/uLNormal4.00-10.60UnAvita Health System Gal[facility] HospitalComment on above: Performed By: #### [id number] ####[facility] ([facility])[address] [place], [place] [address]SAGNPUFZCNDCM RATEon 72-80-3309PKYBYDJLVZBGI RATE, RCDPUYGODZQ41 mm/hrHigh<20UnAvita Health System Galion HospitalComment on above: Performed By: #### [id number] #### [facility] ([facility]) [address] [place] [address]MAUXFKMVRZ, PEAKon 40-47-9496CEISYDBVYL (UG/ML) IN SER/PLAS - PEAK23.0 ug/hVOwoaze70.0-50.0UnAvita Health System Galion HospitalComment on above:Performed By: #### [id number] #### [facility] ([facility]) [address] [place] [address]KHWRWBGUUP, TROUGHon 67-77-8255JAPJVEWQUM (UG/ML) IN SER/PLAS - XNQJOE06.2 ug/mLNormal5.0-20.0UnAvita Health System Galion HospitalComment on above:Performed By: #### [id number] #### [facility] ([facility]) [address] [address]85[address] 80-03-152366Xizpx with facility and patient was admitted back here at [facility] yesterday. They will call back if they need any orders.NormalUnAvita Health System [facility] Hospital BASIC METABOLIC PANELon 48-78-6113Njgbw gap [Moles/Vol]9 mmol/LNormal7-20 [facility] HospitalComment on above:Performed By: #### [id number] ####[facility] ([facility])[address] [place], [place] [address]Zbfnehx [Mass/Vol]9.4 mg/dLNormal8.6-10.3UnAvita Health System Galion HospitalComment on above:Performed By: #### [id number] ####[facility] ([facility])[address] [place], [place] [address]Chovhksj [Moles/Vol]96 mmol/NAkt77-073CwhkqtbebgAvita Health System Galion HospitalComment on above:Performed By: #### [id number] ####[facility] ([facility])[address] [place], [place] [address]XI5 [Moles/Vol]36 mmol/AGvoz47-19 [facility] HospitalComment on above:Performed By: #### [id number] ####[facility] ([facility])[address] [place], [place] [address]Yddebklwfp [Mass/Vol]0.98 mg/dLNormal0.70-1.30UnAvita Health System Galion HospitalComment on above:Performed By: #### [id number] ####[facility] ([facility])[address] [place] [address]BBMEFTMSGK FILTRATION RATE ML/MIN/1.73 SQ M.XLAJOUBWX30.1 mL/min/1.73m*2Normal>60.0UnAvita Health System Galion HospitalComment on above: Result Comment: [facility]???s estimated glomerular filtration rate (eGFR) will [...] anyone group of individuals.Performed By: #### [id number] ####[facility] ([facility])[address] [place] [address]Hhrtwaq [Mass/Vol]90 mg/sAYlbayc36-466OfhohzspipAvita Health System Galion HospitalComment on above:Performed By: #### [id number] ####[facility] ([facility])[address] [place] [address]Lleeiiavg [Moles/Vol]4.0 mmol/LNormal3.5-5.1UnAvita Health System Galion HospitalComment on above:Performed By: #### [id number] ####[facility] ([facility])[address] [place] [address] Sodium [Moles/Vol]137 mmol/AIxjjoe436-939DvpjrjkeeyAvita Health System Galion Hospital Comment on above:Performed By: #### [id number] ####[facility] ([facility])[address] [place], [place] [address]Csrn nitrogen [Mass/Vol]7 mg/dLNormal7-25UnAvita Health System Galion HospitalComment on above:Performed By: #### [id number] ####[facility] ([facility])[address] [place], [place] [address]NVYC NITROGEN/CREATININE (MASS RATIO) IN SER/PLAS7.1NormalUnAvita Health System Galion HospitalComment on above:Performed By: #### [id number] ####[facility] ([facility])[address] [place] [address]LQMqp [id number] distribution width (RBC) [Ratio] 16.2 %High11.5-15.0UnAvita Health System Galion HospitalComment on above:Performed By: #### [id number] #### [facility] ([facility]) [address] [address]HKJVJCXAJMI MEAN CORPUSCULAR HEMOGLOBIN CONCENTRATION (G/DL) BY ZIZIIMKMB59.5 g/dLLow32.0-35.0UnAvita Health System Galion HospitalComment on above:Performed By: #### [id number] #### [facility] ([facility]) [address] [place] [address]Pwgmizqpai (Bld) [Volume fraction]42.0 %Aovzpw85.0-55.0 [place] HospitalComment on above:Performed By: #### [id number] #### [facility] ([facility]) [address] [place] [address]Zrajroiiya (Bld) [Mass/Vol]12.8 g/dLLow13.0-17.0UnAvita Health System Galion HospitalComment on above:Performed By: #### [id number] #### [facility] ([facility]) [address] [place] [address]XZN (RBC) [Entitic mass]26.9 pgLow27.0-33.0UnAvita Health System Galion HospitalComment on above:Performed By: #### [id number] #### [facility] ([facility]) [address] [place] [address]RWJ (RBC) [Entitic vol]88.2 eSTcbmlu23.0-98.0UnAvita Health System Galion HospitalComment on above:Performed By: #### [id number] #### [facility] ([facility]) [address] [place] [address]QXKDHSZRH (10*3/UL) IN BLOOD AUTOMATED [id number] 10*3/uLNormal 150-400UnAvita Health System Galion HospitalComment on above:Performed By: #### [id number] #### [facility] ([facility]) [address] [place] [address]FCT (Bld) [#/Vol]4.76 10*6/uLNormal4.20-5.70UnAvita Health System Galion HospitalComment on above:Performed By: #### [id number] #### [facility] ([facility]) [address] [place] [address]UTH (Bld) [#/Vol]8.22 10*3/uLNormal4.00-10.60UnAvita Health System Galion HospitalComment on above:Performed By: #### [id number] #### [facility] ([facility]) [address] [facility] [place] [address]VDLDQFGWQgk 70-33-2540Ooceyveui [Mass/Vol]2.0 mg/dLNormal1.9-2.7 [facility] HospitalComment on above:Performed By: #### [id number] #### [facility] ([facility]) [address] [place], [place] [address]XFEKU CULTUREon 68-83-9555Kaowquoe identified Cx Nom (Bld)No growth at 5 daysNormalUniversPike Community HospitalComment on above: Performed By: #### [id number] ####[facility] ([facility])[address], [place] [address]Nxgiv Comment: From a different site than #1.Performed By: #### [id number] #### [facility] ([facility]) [address] [facility] [place], [place] [address]Z-YQWCRIFS PROTEINon 10-08-2024 REACTIVE PROTEIN (MG/L) IN SER/PLAS26.6 mg/LHigh<=5.0UnAvita Health System Galion HospitalComment on above: Result Comment: Testing performed using a new methodology, turbidimetry. Normal ranges have been updated. Old normal range was <8 mg/L.Performed By: #### [id number] ####[facility] ([facility])[address] [place] [address]MSP WITH AUTO DIFFERENTIALon 80-26-0417Iwrmfmuee (Bld) [#/Vol]0.06 10*3/uLNormal0.00-0.20 [facility] HospitalComment on above:Performed By: #### [id number] #### [facility] ([facility]) [address] [place] [address]Qrzjjxgsc/100 WBC (Bld)0.8 %Normal0.0-1.0UnAvita Health System [facility]ion HospitalComment on above:Performed By: #### [id number] #### [facility] ([facility]) [address] [place] [address]Fdgoneyzxry (Bld) [#/Vol]0.17 10*3/uLNormal0.00-0.50UnAvita Health System [facility] HospitalComment on above:Performed By: #### [id number] #### [facility] ([facility]) [address] [place], [place] [address]Unfxpebnkrj/100 WBC (Bld)2.3 %Normal0.0-6.0UnAvita Health System [facility] HospitalComment on above:Performed By: #### [id number] #### [facility] ([facility]) [address] [place], [place] [address]Mpfrhsfwrkl distribution width (RBC) [Ratio]16.0 %High11.5-15.0 [facility] HospitalComment on above:Performed By: #### [id number] #### [facility] ([facility]) [address] [place], [place] [address]DBQEKFNTUYN MEAN CORPUSCULAR HEMOGLOBIN CONCENTRATION (G/DL) BY FQRCLNHMW53.3 g/dLLow32.0-35.0UnAvita Health System [facility] HospitalComment on above:Performed By: #### [id number] #### [facility] ([facility]) [address] [place], [place] [address]Nglvlqbooj (Bld) [Volume fraction]40.9 %Yutcdn96.0-55.0 [facility] HospitalComment on above:Performed By: #### [id number] #### [facility] ([facility]) [address] [facility] [place], [place] [address]Sqjwntlphf (Bld) [Mass/Vol]12.4 g/dLLow13.0-17.0UnAvita Health System [facility] HospitalComment on above:Performed By: #### [id number] #### [facility] ([facility]) [address] [place], [place] [address]Dvqxxweb granulocytes (Bld) [#/Vol]0.10 10*3/uLNormal0.00-0.20 [facility] HospitalComment on above:Performed By: #### [id number] #### [facility] ([facility]) [address] [place], [place] [address]Gcbkkpgb granulocytes/100 WBC (Bld)1.4 %High0.0-1.0UnAvita Health System [facility] HospitalComment on above:Performed By: #### [id number] #### [facility] ([facility]) [address] [place], [place] [address]Zdqcjecipvs (Bld) [#/Vol]0.73 10*3/uLLow1.20-4.00UnAvita Health System [facility] HospitalComment on above:Performed By: #### [id number] #### [facility] ([facility]) [address] [place], [place] [address]Clokltfvqlc/100 WBC (Bld)10.0 %Low20.0-45.0UnAvita Health System [facility] HospitalComment on above:Performed By: #### [id number] #### [facility] ([facility]) [address] [place], [place] [address]VUN (RBC) [Entitic mass]26.7 pgLow27.0-33.0UnAvita Health System [facility] HospitalComment on above:Performed By: #### [id number] #### [facility] ([facility]) [address] [place], [place] [address]UQX (RBC) [Entitic vol]88.0 zITngnxo19.0-98.0UnAvita Health System [facility] HospitalComment on above:Performed By: #### [id number] #### [facility] ([facility]) [address] [place] [address]Pvoeybliq (Bld) [#/Vol]0.52 10*3/uLNormal0.10-1.00UnAvita Health System [facility] HospitalComment on above:Performed By: #### [id number] #### [facility] ([facility]) [address] [place] [address]Nxjllxoqf/100 WBC (Bld)7.1 %Normal5.0-12.0UnAvita Health System [facility] HospitalComment on above:Performed By: #### [id number] #### [facility] ([facility]) [address] [place] [address]Hshxyqqjmmu (Bld) [#/Vol]5.73 10*3/uLNormal1.60-7.60UnAvita Health System [facility] HospitalComment on above:Performed By: #### [id number] #### [facility] ([facility]) [address] [place] [address]Fosytbmjwod/100 WBC (Bld)78.4 %High40.0-72.0UnAvita Health System [facility] HospitalComment on above:Performed By: #### [id number] #### [facility] ([facility]) [address] [place] [address]FSIC (PER 100 WBCS) BY AUTOMATED COUNT0.0 %Rahvxq6GnhqllxxrfAvita Health System Galion HospitalComment on above:Performed By: #### [id number] #### [facility] ([facility]) [address] [place] [address]FESTHDSPS (10*3/UL) IN BLOOD AUTOMATED BDIAB417 10*3/uLNormal 150-400UnAvita Health System [facility] HospitalComment on above:Performed By: #### [id number] #### [facility] ([facility]) [address] [place] [address]ONW (Bld) [#/Vol]4.65 10*6/uLNormal4.20-5.70UnAvita Health System [facility] HospitalComment on above:Performed By: #### [id number] #### [facility] ([facility]) [address] [place] [address]HZP (Bld) [#/Vol]7.31 10*3/uLNormal4.00-10.60UnAvita Health System [facility] HospitalComment on above:Performed By: #### [id number] #### [facility] ([facility]) [address] [place] [address]PHMNOICSDTYIS METABOLIC PANELon 65-23-4698Ndwfjjv [Mass/Vol]3.7 g/dLNormal3.5-5.7UnAvita Health System [facility] HospitalComment on above:Performed By: #### [id number] #### [facility] ([facility]) [address] [place] [address]QJA [Catalytic activity/Vol]130 U/CBmar20-763XqhupaxjxtAvita Health System Galion HospitalComment on above:Performed By: #### [id number] #### [facility] ([facility]) [address] [place] [address]COX [Catalytic activity/Vol]14 U/LNormal7-52UnAvita Health System [facility] HospitalComment on above:Performed By: #### [id number] #### [facility] ([facility]) [address] [place] [address]Mkpst gap [Moles/Vol]9 mmol/LNormal7-20UnAvita Health System [facility] HospitalComment on above:Performed By: #### [id number] #### [facility] ([facility]) [address] [place] [address]TNA [Catalytic activity/Vol]19 U/PXfbgfs19-67WdwybpkqtbAvita Health System Galion HospitalComment on above:Performed By: #### [id number] #### [facility] ([facility]) [address] [place] [address]Wyvtsljnh [Mass/Vol]0.7 mg/dLNormal0.3-1.0UnAvita Health System [facility] HospitalComment on above:Performed By: #### [id number] #### [facility] ([facility]) [address] [place], [place] [address]Emqktsl [Mass/Vol]9.5 mg/dLNormal8.6-10.3UnAvita Health System [facility] HospitalComment on above:Performed By: #### [id number] #### [facility] ([facility]) [address] [place], [place] [address]Rvbgugau [Moles/Vol]99 mmol/SQelwjm82-514QaxjdbilgwAvita Health System Galion HospitalComment on above:Performed By: #### [id number] #### [facility] ([facility]) [address] [place], [place] [address]TS5 [Moles/Vol]37 mmol/GKujh86-55UnnbcxwfpwAvita Health System Galion HospitalComment on above:Performed By: #### [id number] #### [facility] ([facility]) [address] [place], [place] [address]Sgtvlsstei [Mass/Vol]0.96 mg/dLNormal0.70-1.30UnAvita Health System [facility] HospitalComment on above:Performed By: #### [id number] #### [facility] ([facility]) [address] [place], [place] [address]VMQOZPKOJK FILTRATION RATE ML/MIN/1.73 SQ M.FANXXVRJH86.3 mL/min/1.73m*2Normal>60.0UnAvita Health System [facility] HospitalComment on above: Result Comment: [facility]???s estimated glomerular filtration rate (eGFR) will [...] affect anyone group of individuals.Performed By: #### [id number] #### [facility] ([facility]) [address] [place], [place] [address]Ryekyjm [Mass/Vol]83 mg/hVYlpioe53-717CdtjfwlagkAvita Health System Galion HospitalComment on above:Performed By: #### [id number] #### [facility] ([facility]) [address] [place] [address]Vcrrqksvp [Moles/Vol]4.2 mmol/LNormal3.5-5.1UnAvita Health System [facility] HospitalComment on above:Performed By: #### [id number] #### [facility] ([facility]) [address] [place] [address]Jfuuxcw [Mass/Vol]7.1 g/dLNormal6.0-8.3UnAvita Health System [facility] HospitalComment on above:Performed By: #### [id number] #### [facility] ([facility]) [address] [place] [address]Lscxkn [Moles/Vol]141 mmol/VDfhqix751-698FneiedhowvAvita Health System Galion HospitalComment on above:Performed By: #### [id number] #### [facility] ([facility]) [address] [place] [address]Lhia nitrogen [Mass/Vol]10 mg/dLNormal7-25UnAvita Health System [facility] HospitalComment on above:Performed By: #### [id number] #### [facility] ([facility]) [address] [place] [address]CZYJ NITROGEN/CREATININE (MASS RATIO) IN SER/PLAS10.4Normal [facility] HospitalComment on above:Performed By: #### [id number] #### [facility] ([facility]) [address] [place] [address]SVKERUWfb 62-16-0248ZKAOHJD Attestation signed by Jose Angel Mai MD [...] (Viagra) 25 mg ta (more content not included)...[facility] CenterEDNURSon 35-68-0455MUEUWAVkdexdv: transfer from [facility] Complaint: cellulitis to right leg, hx surgery on 09/24 Notes: patient arrived on this day via [facility] from [facility] for pain to the right leg. Previous surgery at [facility] on 09/24 for right leg tib/fib fracture. Per [facility] staff, patient arrived with increased pain, redness and swelling to right lower extremity. Ultrasound was negative for DVT. [facility] ED treated for cellulitis, administered dose of zosyn at 0330, vancomycin at 2030 and 5mg oxycontin at 1930. Patient endorsed non-compliance, did not have post surgery follow up appointment and has been putting weight on leg. History of hypertension, patient O2 desat to 88% when sleeping. Per [facility], patient non-compliant with bipap. Upon arrival, patient endorsed pain 8/10 and nausea. Patient denied chest pain, fever, chills and shortness of breath.NormalUnAvita Health System [facility] EDPROVon 56-50-1506CBBLYJIclilcbmtmAvita Health System [facility] [address] [facility] [address] EMERGENCY DEPARTMENT ENCOUNTER CHIEF COMPLAINT Chief Complaint Patient presents with Cellulitis HISTORY OF PRESENT ILLNESS Matty Garces is a 54 y.o. male who presents with a Chief Complaint Patient presents with Cellulitis REVIEW OF SYSTEMS Review of Systems Musculoskeletal: Positive for arthralgias. Skin: Positive for rash. All other systems reviewed and are negative. The patient is a 54-year-old male who was transferred from [facility] for cellulitis involving recent right lower extremity surgery. Patient had surgical pair of a tibia fracture on September 24. The patient states that he went to [facility] emergency department today due to increased swelling. Patient was given Zosyn and vancomycin at [facility]. Patient states that he is having [...] No respiratory distress. B (more content not included)...NormalUnAvita Health System [facility] MAGNESIUMon 14-62-0600Smhrafbtb [Mass/Vol]1.8 mg/dLLow1.9-2.7UnAvita Health System [facility] HospitalComment on above:Performed By: #### [id number] #### [facility] ([facility]) [address] [place], [place] [address]BUXEVQSSRMWKR RATEon 72-43-2751VMMHAYIHVQXEP RATE, ZOEJNRPMIUS15 mm/hrHigh<20UnAvita Health System [facility] HospitalComment on above:Performed By: #### [id number] #### [facility] ([facility]) [address] [place] [address]DZDDQAE D 25 HYDROXYon 80-72-8517VAAEWAEFK (25 [place] VITAMIN D3) (NG/ML) IN SER/PLAS37.0 ng/eDKmjoat21.0-80.0Un[facility] Comment on above:Result Comment: >80.0 Toxicity possiblePerformed By: #### [id number] ####[facility] ([facility])[address] [address]ve [phone] and is seeing the patient for wound care, PT, and OT. Seeing patient a couple times a week could specify a number of times. States is also doing dressing changes. [phone] [facility] Health SystemTelephoneon 10-04-2024 [id number] Matty Garces 1970 M Date Provider Department Center 10/04/2024 19352-ASNSAPMATT [facility] MPORTHO No family history on file Reason for Visit and Comments: Information [Other]NormalUnAvita Health System [facility] Hospital36on Patient in home PT called and wanted to confirm if Dr. Field does the in home therapy approvals/orders or if he had to follow up with his PCP, keno writer/runner informed her he does. Patient is scheduled for 10/05/24.NormalUnAvita Health System Galion HospitalBASIC METABOLIC PANELon 40-82-6482Mnwuj gap [Moles/Vol]7 mmol/LNormal7-20 [facility] HospitalComment on above:Performed By: #### [id number] ####[facility] ([facility])[address] [address]Mfeynev [Mass/Vol]9.6 mg/dLNormal8.6-10.3UnAvita Health System [facility] HospitalComment on above:Performed By: #### [id number] ####[facility] ([facility])[address] [address]Gxszwfmp [Moles/Vol]98 mmol/WCsfrqe75-851IsqumwvwdhAvita Health System Galion HospitalComment on above:Performed By: #### [id number] ####[facility] ([facility])[address] [place] [address]OW1 [Moles/Vol]34 mmol/DAnfy17-29 [facility] HospitalComment on above:Performed By: #### [id number] ####[facility] ([facility])[address] [place] [address]Dcbopxzepj [Mass/Vol]0.92 mg/dLNormal0.70-1.30UnAvita Health System [facility] HospitalComment on above:Performed By: #### [id number] ####[facility] ([facility])[address] [place] [address]LFRFVHFKGQ FILTRATION RATE ML/MIN/1.73 SQ M.FNAAGKXUJ48.9 mL/min/1.73m*2Normal>60.0UnAvita Health System [facility] HospitalComment on above: Result Comment: [facility]???s estimated glomerular filtration rate (eGFR) will [...] anyone group of individuals.Performed By: #### [id number] ####[facility] ([facility])[address] [place] [address]Qrdgpzl [Mass/Vol]99 mg/eBTuxxkv01-796PstozsfzisAvita Health System Galion HospitalComment on above:Performed By: #### [id number] ####[facility] ([facility])[address] [place] [address]Rsbwcjsnw [Moles/Vol]4.3 mmol/LNormal3.5-5.1UnAvita Health System [facility] HospitalComment on above:Performed By: #### [id number] ####[facility] ([facility])[address] [place] [address] Sodium [Moles/Vol]135 mmol/WUpg240-865ClexidgspiAvita Health System Galion HospitalComment on above:Performed By: #### [id number] ####[facility] ([facility])[address] [address]Gwrq nitrogen [Mass/Vol]20 mg/dLNormal7-25UnAvita Health System [facility] HospitalComment on above:Performed By: #### [id number] ####[facility] ([facility])[address] [place] [address]DEYV NITROGEN/CREATININE (MASS RATIO) IN SER/PLAS21.7NormalUniversPike Community HospitalComment on above: Performed By: #### [id number] ####[facility] ([facility])[address] [address]BXOmz 83-11-8592Nnxepvcskjo distribution width (RBC) [Ratio]15.3 %High 11.5-15.0UnAvita Health System [facility] HospitalComment on above:Performed By: #### [id number] #### [facility] ([facility]) [address] [place] [address]FOKAQRNJXEE MEAN CORPUSCULAR HEMOGLOBIN CONCENTRATION (G/DL) BY TRMOBWOEB21.9 g/dLLow32.0-35.0UnAvita Health System [facility] HospitalComment on above:Performed By: #### [id number] #### [facility] ([facility]) [address] [place] [address]Hzesskuoyt (Bld) [Volume fraction]44.4 %Migmti76.0-55.0 [facility] HospitalComment on above:Performed By: #### [id number] #### [facility] ([facility]) [address] [place] [address]Tqeyvqxqkk (Bld) [Mass/Vol]13.7 g/nBRzhpuh18.0-17.0UnAvita Health System [facility] HospitalComment on above:Performed By: #### [id number] #### [facility] ([facility]) [address] [place] [address]IIC (RBC) [Entitic mass]26.5 pgLow27.0-33.0UnAvita Health System [facility] HospitalComment on above:Performed By: #### [id number] #### [facility] ([facility]) [address] [place], [place] [address]EDD (RBC) [Entitic vol]85.9 xMNohtsk95.0-98.0UnAvita Health System [facility] HospitalComment on above:Performed By: #### [id number] #### [facility] ([facility]) [address] [place], [place] [address]AASGEAYIN (10*3/UL) IN BLOOD AUTOMATED NJGQN595 10*3/uLNormal 150-400UnAvita Health System [facility] HospitalComment on above:Performed By: #### [id number] #### [facility] ([facility]) [address] [place], [place] [address]CSU (Bld) [#/Vol]5.17 10*6/uLNormal4.20-5.70UnAvita Health System [facility] HospitalComment on above:Performed By: #### [id number] #### [facility] ([facility]) [address] [facility] [place], [place] [address]XTN (Bld) [#/Vol]10.65 10*3/uLHigh4.00-10.60UnAvita Health System [facility] HospitalComment on above:Performed By: #### [id number] #### [facility] ([facility]) [address] [place], [place] [address]LCYCXVOtl 27-69-3138LXPWSJQOnrndnn tried CPAP in the past and was [...] Interventions Referrals/Orders: Yes, [facility]ent[facility]DS[facility]-7360EDRcesvaznt Admitted 09/23/2024 for Fall, syncope Comminuted right tib/fib fracture CHF HTN Hypomagnesemia Enlarged right hilar node Enlarged prostate Discharge Diagnosis Fall, syncope Comminuted right tib/fib fracture CHF HTN Hypomagnesemia Enlarged right hilar node Enlarged prostate Obstructive sleep apnea Morbid obesity Atrial flutter, new onset Discharge Disposition Home-Health Care [facility] (06) Discharge Medications Your medication list START [...] Medications These medications were sent to [facility] - [address] [place] [address] [address] [facility] [place] [address], [facility] [address] acetaminophen 500 mg tablet aspirin 81 mg [...] team was informed at approximately 1730 per [facility] that patient went into a-flutter and sustained for approximately 2 hours fro (more content not included)...NormalSelect Medical Specialty Hospital - TrumbullPROVon 91-37-0981AHKFWSKchx report has been cancelled.NormalChillicothe HospitalLetter (Out)on 94-75-9081Jzmpcg (Out)[id number] Matty Garces 1970 M Date Provider Department Center 09/28/2024 [id number], GENERIC PRO*INIT None No family history on fileNormalUniversPike Community HospitalMAGNESIUMon 73-51-8178Hynmltluy [Mass/Vol]2.0 mg/dLNormal1.9-2.7UnAvita Health System [facility] HospitalComment on above:Performed By: #### [id number] #### [facility] ([facility]) [address] [place], [place] [address]UTRWHNTDla 66-65-1246UWTWRITOEF signed AMA paperwork with trama team. Pt left with belongings and family. AMA paperwork in patient chart.NormalChillicothe Hospital PHOSPHORUSon 49-07-8876Ggybbofib [Mass/Vol]3.3 mg/dLNormal2.5-5.0UnAvita Health System [facility] HospitalComment on above:Performed By: #### [id number] ####[facility] ([facility])[address] [place], [place] [address]vy [id number] patient is Moderately Stable - Low risk of patient condition declining or worsening The patient's goals for the shift include comfort The clinical goals for the shift include VSS, pain control Over the shift, the patient did not make progress toward the following goals. Barriers to progression include unstable VS. Recommendations to address these barriers include continue medications as orderedNormalUnitexas health [facility] [place] of [facility]30Daily Case Management Update Multidisciplinary rounds have been completed. Barriers to Discharge: Pending clinical course; POD3 IMN; 4L NC. Patient refusing CPaP at rest/sleep, Pulm brennen consulted and following. PT/OT recommending IPR, PMR consulted and recommend IPR. Patient and spouse would like to go home with [facility]. Referrals sent, pending accepting [facility] agency>>Radha Mendenhall [facility] accepting. DME recommended--wheelchair, rolling walker, bedside commode--scripts written and face to face notes signed.>>need sent to [employer] company for fulfillment. SW following. Diet: Dietary [...] R tib fib facrture Level of Consultation Cloth Cutting Inspector assumes full responsibility 09/23/24 1231 09/23/24 1221 [...] Answer: Post muscular skeletal surgical procedure 09/24/24 1242NormalUniWhite Hospital30The patient is Moderately Stable - Low [...] medicate for pain as ordered maintain safety precautions.NormalUnAvita Health System [facility]30The patient is Moderately Stable - Low [...] and behaviors that affect risk of falls [place] fall precautions as indicated by assessment Educate patient/family on patient safety, including physical limitations Instruct patient to call for assistance with activity based on assessment Modify environment to reduce risk of injuryNormalUniversPike Community HospitalBASIC METABOLIC PANELon 54-41-0694Wpukh gap [Moles/Vol]9 mmol/LNormal7-20 [facility] HospitalComment on above:Performed By: #### [id number] #### [facility] ([facility]) [address] [place], [place] [address]Wnwdbdm [Mass/Vol]9.3 mg/dLNormal8.6-10.3UnAvita Health System [facility] HospitalComment on above:Performed By: #### [id number] #### [facility] ([facility]) [address] [place], [place] [address]Xhaacebb [Moles/Vol]99 mmol/UQwrplz39-643GswkgiyxkwAvita Health System Galion HospitalComment on above:Performed By: #### [id number] #### [facility] ([facility]) [address] [place], [place] [address]QR0 [Moles/Vol]33 mmol/MRyaz71-63VrgutdfchyAvita Health System Galion HospitalComment on above:Performed By: #### [id number] #### [facility] ([facility]) [address] [place], [place] [address]Ulxqbjqwtu [Mass/Vol]0.89 mg/dLNormal0.70-1.30UnAvita Health System Galion HospitalComment on above:Performed By: #### [id number] #### [facility] ([facility]) [address] [place], [place] [address]QGNOGUIFNE FILTRATION RATE ML/MIN/1.73 SQ M.EXIRDSKLS464.8 mL/min/1.73m*2Normal>60.0UnAvita Health System Galion HospitalComment on above: Result Comment: [facility]???s estimated glomerular filtration rate (eGFR) will [...] affect anyone group of individuals.Performed By: #### [id number] #### [facility] ([facility]) [address] [place], [place] [address]Mwlqivu [Mass/Vol]95 mg/tSGmafjx35-770OvnhkekrqwAvita Health System Galion HospitalComment on above:Performed By: #### [id number] #### [facility] ([facility]) [address] [place], [place] [address]Dmuutuhvu [Moles/Vol]4.1 mmol/LNormal3.5-5.1UnAvita Health System Galion HospitalComment on above:Performed By: #### [id number] #### [facility] ([facility]) [address] [place], [place] [address]Leyjzp [Moles/Vol]137 mmol/UItymdb669-743QrmbastkgpAvita Health System Galion HospitalComment on above:Performed By: #### [id number] #### [facility] ([facility]) [address] [place], [place] [address]Jkne nitrogen [Mass/Vol]17 mg/dLNormal7-25UnAvita Health System Galion HospitalComment on above:Performed By: #### [id number] #### [facility] ([facility]) [address] [place], [place] [address]PRML NITROGEN/CREATININE (MASS RATIO) IN SER/PLAS19.1Normal [facility] HospitalComment on above:Performed By: #### [id number] #### [facility] ([facility]) [address] [place], [place] [address]RTMwz 24-06-9891Eqdwcyvjcky distribution width (RBC) [Ratio]15.4 %High11.5-15.0UnAvita Health System Galion HospitalComment on above:Performed By: #### [id number] #### [facility] ([facility]) [address] [place] [address]BLLHXMOJIHV MEAN CORPUSCULAR HEMOGLOBIN CONCENTRATION (G/DL) BY OCQQVNEVK89.8 g/dLLow32.0-35.0UnAvita Health System Galion HospitalComment on above:Performed By: #### [id number] #### [facility] ([facility]) [address] [place] [address]Hfkusvfius (Bld) [Volume fraction]45.5 %Qcqsoo64.0-55.0 [facility] HospitalComment on above:Performed By: #### [id number] #### [facility] ([facility]) [address] [place] [address]Mlnqtiatjh (Bld) [Mass/Vol]14.0 g/tDJahoxp71.0-17.0UnAvita Health System Galion HospitalComment on above:Performed By: #### [id number] #### [facility] ([facility]) [address] [place] [address]PRC (RBC) [Entitic mass]26.5 pgLow27.0-33.0UnAvita Health System Galion HospitalComment on above:Performed By: #### [id number] #### [facility] ([facility]) [address] [place] [address]EBJ (RBC) [Entitic vol]86.0 zAOguamo05.0-98.0UnAvita Health System Galion HospitalComment on above:Performed By: #### [id number] #### [facility] ([facility]) [address] [place] [address]QTRFLLKPB (10*3/UL) IN BLOOD AUTOMATED [id number] 10*3/uLNormal 150-400UnAvita Health System Galion HospitalComment on above:Performed By: #### [id number] #### [facility] ([facility]) [address] [place] [address]FHJ (Bld) [#/Vol]5.29 10*6/uLNormal4.20-5.70UnAvita Health System Galion HospitalComment on above:Performed By: #### [id number] #### [facility] ([facility]) [address] [place] [place], [place] [address]HIA (Bld) [#/Vol]10.21 10*3/uLNormal4.00-10.60UnAvita Health System Galion HospitalComment on above:Performed By: #### [id number] #### [facility] ([facility]) [address] [place], [place] [address]KXXPVOXJZzt 78-38-8741Xrufmnsgz [Mass/Vol]1.9 mg/dLNormal1.9-2.7 [facility] HospitalComment on above:Performed By: #### [id number] #### [facility] ([facility]) [address] [place], [place] [address]TKTTDQVVOBty 75-70-2414Aofpgwqgt [Mass/Vol]4.4 mg/dLNormal 2.5-5.0UnAvita Health System Galion HospitalComment on above:Performed By: #### [id number] #### [facility] ([facility]) [address] [place], [place] [address]NWHWZA BLOOD GAS WITH IONIZED CALCIUMon 89-95-2891Uywg excess Calc (BldV) [Moles/Vol]9.2 mmol/LNormalUnAvita Health System Gal[facility] Hospital Comment on above:Performed By: #### [id number] ####[facility] [id number] [place] [address] USACALCIUM IONIZED (MMOL/L) IN BLOOD1.27 mmol/L Normal1.15-1.33UnAvita Health System Galion HospitalComment on above:Performed By: #### [id number] ####[facility] [id number] [place] [address] [place] CO2 (BldV) [Partial pressure]50 mm[Hg]Xgdkfs94-22MdcyieawgkAvita Health System Galion HospitalComment on above:Performed By: #### [id number] ####[facility] [id number] [place] [address] USAHCO3 (Bld) [Moles/Vol]34.8 mmol/L NormalUnAvita Health System Galion HospitalComment on above:Performed By: #### [id number] ####[facility] [id number] [place] [address] USAOxygen (BldV) [Partial pressure]53 mm[Hg]Kops42-22YtnijxxbhrAvita Health System Galion Hospital Comment on above:Performed By: #### [id number] ####[facility] [id number] [place] [address] USAOXYGEN SATURATION (%) IN VENOUS BLOOD87.1 %High 65.0-75.0UnAvita Health System Galion HospitalComment on above:Performed By: #### [id number] ####[facility] [id number] [place] [address] USAPH OF VENOUS BLOOD7.92Fxqm2.31-7.41UnAvita Health System Galion HospitalComment on above:Performed By: #### [id number] ####[facility] [id number] [place] [address] USABASIC METABOLIC PANELon 40-65-0223Fnrxk gap [Moles/Vol]8 mmol/LNormal7-20UnAvita Health System Gal[facility] HospitalComment on above:Performed By: #### [id number] #### [facility] ([facility]) [address] [place], [place] [address]Cjcexco [Mass/Vol]9.4 mg/dLNormal8.6-10.3UnAvita Health System Galion HospitalComment on above:Performed By: #### [id number] #### [facility] ([facility]) [address] [place] [place], [place] [address]Chwppkyd [Moles/Vol]99 mmol/CXdukhh29-902QdvnopcaovAvita Health System Galion HospitalComment on above:Performed By: #### [id number] #### [facility] ([facility]) [address] [place], [place] [address]XE5 [Moles/Vol]36 mmol/XVkbg71-57HplkgrretbAvita Health System Galion HospitalComment on above:Performed By: #### [id number] #### [facility] ([facility]) [address] [place] [address]Ciagmoclbv [Mass/Vol]0.91 mg/dLNormal0.70-1.30UnAvita Health System Galion HospitalComment on above:Performed By: #### [id number] #### [facility] ([facility]) [address] [place] [address]MKGHQQTZUX FILTRATION RATE ML/MIN/1.73 SQ M.TSIIDLZHT714.2 mL/min/1.73m*2Normal>60.0UnAvita Health System Galion HospitalComment on above: Result Comment: [facility]???s estimated glomerular filtration rate (eGFR) will [...] affect anyone group of individuals.Performed By: #### [id number] #### [facility] ([facility]) [address] [place] [address]Brrtgxa [Mass/Vol]85 mg/iEOnfjrg17-185ZhhpxnjsjaAvita Health System Galion HospitalComment on above:Performed By: #### [id number] #### [facility] ([facility]) [address] [place] [address]Fbtthmyug [Moles/Vol]3.8 mmol/LNormal3.5-5.1UnAvita Health System Gal[facility] HospitalComment on above:Performed By: #### [id number] #### [facility] ([facility]) [address] [place] [address]Tquhbq [Moles/Vol]139 mmol/MOpvwvq192-766PbbhafrqcbAvita Health System Galion HospitalComment on above:Performed By: #### [id number] #### [facility] ([facility]) [address] [place] [address]Jptr nitrogen [Mass/Vol]18 mg/dLNormal7-25UnAvita Health System [facility] HospitalComment on above:Performed By: #### [id number] #### [facility] ([facility]) [address] [place] [address]QTQW NITROGEN/CREATININE (MASS RATIO) IN SER/PLAS19.8Normal [facility] HospitalComment on above:Performed By: #### [id number] #### [facility] ([facility]) [address] [place] [address]RETxe 94-93-5853Xpjwebzwwkh distribution width (RBC) [Ratio]15.4 %High11.5-15.0UnAvita Health System Gal[facility] HospitalComment on above:Performed By: #### [id number] #### [facility] ([facility]) [address] [place] [address]XKOLNLWOBCQ MEAN CORPUSCULAR HEMOGLOBIN CONCENTRATION (G/DL) BY NBFFXONNW25.1 g/dLLow32.0-35.0UnAvita Health System Gal[facility] HospitalComment on above:Performed By: #### [id number] #### [facility] ([facility]) [address] [place] [address]Seiqtcxoez (Bld) [Volume fraction]43.8 %Bwceut44.0-55.0 [facility] HospitalComment on above:Performed By: #### [id number] #### [facility] ([facility]) [address] [place] [address]Mgqjlupkcl (Bld) [Mass/Vol]13.6 g/lDTroady36.0-17.0UnAvita Health System [facility] HospitalComment on above:Performed By: #### [id number] #### [facility] ([facility]) [address] [place] [address]IQZ (RBC) [Entitic mass]26.3 pgLow27.0-33.0UnAvita Health System Gal[facility] HospitalComment on above:Performed By: #### [id number] #### [facility] ([facility]) [address] [place] [address]SIP (RBC) [Entitic vol]84.7 aZJhznlj48.0-98.0UnAvita Health System [facility] HospitalComment on above:Performed By: #### [id number] #### [facility] ([facility]) [address] [place] [address]IMISBBPTU (10*3/UL) IN BLOOD AUTOMATED [id number] 10*3/uLNormal 150-400UnAvita Health System Gal[facility] HospitalComment on above:Performed By: #### [id number] #### [facility] ([facility]) [address] [place], [place] [address]CVE (Bld) [#/Vol]5.17 10*6/uLNormal4.20-5.70UnAvita Health System Gal[facility] HospitalComment on above:Performed By: #### [id number] #### [facility] ([facility]) [address] [place] [address]OCR (Bld) [#/Vol]9.63 10*3/uLNormal4.00-10.60UnAvita Health System Gal[facility] HospitalComment on above:Performed By: #### [id number] #### [facility] ([facility]) [address] [place], [place] [address]BITWQTESLqe 17-94-8898Fmbmlulpo [Mass/Vol]1.9 mg/dLNormal1.9-2.7 [facility] HospitalComment on above:Performed By: #### [id number] #### [facility] ([facility]) [address] [place], [place] [address]WRLJICZHLGbo 12-93-6651Rnpbtznje [Mass/Vol]2.6 mg/dLNormal 2.5-5.0UnAvita Health System Gal[facility] HospitalComment on above:Performed By: #### [id number] #### [facility] ([facility]) [address] [place] [address]vr 28-74-032793Rbewyid: Pain - Adult Goal: Verbalizes/displays adequate comfort [...] address these barriers include consult for respiratory therapy.[facility]30Daily Case Management Update Multidisciplinary rounds have been completed. Barriers to Discharge: Pending clinical course; patient requiring 10L [place] at this time, pulmonary navigator consulted for possible PATEL. CXR ordered, no acute findings. Patient will require a home O2 evaluation if unable to wean oxygen. PT/OT recommending IPR, PMR consulted and recommend IPR. Patient and spouse would like to go home with [facility]. Referrals sent, pending accepting [facility] agency. DME recommended--wheelchair, rolling walker, bedside [...] R tib fib facrture Level of Consultation Cloth Cutting Inspector assumes full responsibility 09/23/24 1231 09/23/24 1221 [...] Answer: Post muscular skeletal surgical procedure 09/24/24 1242NormalUniversPike Community HospitalBASIC METABOLIC PANELon 39-16-6017Qnqot gap [Moles/Vol]9 mmol/LNormal7-20UnAvita Health System Gal[facility] HospitalComment on above:Performed By: #### [id number] ####[facility] ([facility])[address] [place], [place] [address]Oeztkys [Mass/Vol]8.9 mg/dLNormal 8.6-10.3UnAvita Health System Gal[facility] HospitalComment on above:Performed By: #### [id number] ####[facility] ([facility])[address] [place], [place] [address]Vgmpzmud [Moles/Vol]97 mmol/AKfa70-789MltdijifauAvita Health System Galion HospitalComment on above:Performed By: #### [id number] ####[facility] ([facility])[address] [place], [place] [address]EI1 [Moles/Vol]32 mmol/DQdzh71-74YomfyipsmoAvita Health System Galion HospitalComment on above:Performed By: #### [id number] ####[facility] ([facility])[address] [place], [place] [address]Wrfuirfuyt [Mass/Vol]0.91 mg/dLNormal 0.70-1.30UnAvita Health System [facility] HospitalComment on above:Performed By: #### [id number] ####[facility] ([facility])[address] [place], [place] [address]AIVQXAOUQE FILTRATION RATE ML/MIN/1.73 SQ M.PCASVFYYA586.2 mL/min/1.73m*2Normal>60.0 [facility] HospitalComment on above:Result Comment: [facility]???s estimated glomerular filtration rate (eG FR) [...] group of individuals. Performed By: #### [id number] ####[facility] ([facility])[address] [place] [address]Oegedip [Mass/Vol]141 mg/yNRrls38-811ExrjxnjsyaAvita Health System Galion HospitalComment on above:Performed By: #### [id number] ####[facility] ([facility])[address] [place] [address]Jryagydua [Moles/Vol]4.2 mmol/LNormal 3.5-5.1UnAvita Health System [facility] HospitalComment on above:Performed By: #### [id number] ####[facility] ([facility])[address] [place] [address]Oxefpb [Moles/Vol]134 mmol/JXzu189-751FptkrwnyinAvita Health System Galion HospitalComment on above:Performed By: #### [id number] ####[facility] ([facility])[address] [facility] [place] [address]Hcsl nitrogen [Mass/Vol]15 mg/dLNormal7-25UnAvita Health System [facility] HospitalComment on above:Performed By: #### [id number] ####[facility] ([facility])[address] [place], [place] [address]MTYU NITROGEN/CREATININE (MASS RATIO) IN SER/PLAS16.5NormalUniversPike Community HospitalComment on above: Performed By: #### [id number] ####[facility] ([facility])[address] [place], [place] [address]CBPnq 63-32-7584Ltxturfwndz distribution width (RBC) [Ratio]14.9 % Ifckls82.5-15.0UnAvita Health System Gal[facility] HospitalComment on above:Performed By: #### [id number] #### [facility] ([facility]) [address] [place], [place] [address]MFPEQINBTRU MEAN CORPUSCULAR HEMOGLOBIN CONCENTRATION (G/DL) BY YSFVHZMEK86.1 g/dLLow32.0-35.0UnAvita Health System Galion HospitalComment on above:Performed By: #### [id number] #### [facility] ([facility]) [address] [place] [address]Pscheydhdk (Bld) [Volume fraction]45.4 %Urqfwt63.0-55.0 [facility] HospitalComment on above:Performed By: #### [id number] #### [facility] ([facility]) [address] [place] [address]Lmofaffmdx (Bld) [Mass/Vol]14.1 g/kSMctrtq34.0-17.0UnAvita Health System [facility] HospitalComment on above:Performed By: #### [id number] #### [facility] ([facility]) [address] [place] [address]KCO (RBC) [Entitic mass]26.3 pgLow27.0-33.0UnAvita Health System Gal[facility] HospitalComment on above:Performed By: #### [id number] #### [facility] ([facility]) [address] [place] [address]GPA (RBC) [Entitic vol]84.5 rKDwmiev79.0-98.0UnAvita Health System [facility] HospitalComment on above:Performed By: #### [id number] #### [facility] ([facility]) [address] [place] [address]DZLAEADOW (10*3/UL) IN BLOOD AUTOMATED KGIAR006 10*3/uLNormal 150-400UnAvita Health System [facility] HospitalComment on above:Performed By: #### [id number] #### [facility] ([facility]) [address] [place] [address]LMJ (Bld) [#/Vol]5.37 10*6/uLNormal4.20-5.70UnAvita Health System [facility] HospitalComment on above:Performed By: #### [id number] #### [facility] ([facility]) [address] [place] [address]ESP (Bld) [#/Vol]14.37 10*3/uLHigh4.00-10.60UnAv[facility] Health System [facility] HospitalComment on above:Performed By: #### [id number] #### [facility] ([facility]) [place] [address]LCUGPGNQEzk 46-24-7809Nrxijhvmo [Mass/Vol]2.1 mg/dLNormal1.9-2.7 [facility] HospitalComment on above:Performed By: #### [id number] ####[facility] ([facility])[address] [place] [address]ZZJTKGCXak 11-74-9155TSKUKDSINpiiro RN met patient at bedside and provided the Trauma Services Patient Brochure. Patient will follow-up with Orthopedics 10/05/2024 at 0900. No further needs currently.NormalUnAvita Health System Galion HospitalPHOSPHORUSon 09-25-2024 Magnesium [Mass/Vol]2.8 mg/dLNormal2.5-5.0UnAv[facility] Comment on above:Performed By: #### [id number] ####[facility] ([facility])[address] [place] [address]34sb 33-02-556958Yuc patient is Moderately Stable - Low risk [...] Adult Goal: Free from fall injury Outcome: ProgressingNormalUniversPike Community HospitalBASIC METABOLIC PANELon 06-35-0957Kpink gap [Moles/Vol]8 mmol/LNormal7-20UnAvita Health System [facility] HospitalComment on above:Performed By: #### [id number] ####[facility] ([facility])[address] [place] [address]Bwjvhlo [Mass/Vol]9.1 mg/dLNormal 8.6-10.3UnAvita Health System [facility] HospitalComment on above:Performed By: #### [id number] ####[facility] ([facility])[address] [place], [place] [address]Mrtqvgkg [Moles/Vol]98 mmol/JSjvqra20-301CztwhvnwzaAvita Health System Galion HospitalComment on above:Performed By: #### LAB15 ####[facility] ([facility])[address] [place] [address]DF5 [Moles/Vol]35 mmol/NBsss07-20HrbvgkmijkAvita Health System Galion HospitalComment on above:Performed By: #### [id number] ####[facility] ([facility])[address] [place], [place] [address]Ahdgmlpepi [Mass/Vol]1.02 mg/dLNormal 0.70-1.30UnAvita Health System [facility] HospitalComment on above:Performed By: #### [id number] ####[facility] ([facility])[address] [place], [place] [address]GMRLYZFBTU FILTRATION RATE ML/MIN/1.73 SQ M.UQJTFCGMG58.3 mL/min/1.73m*2Normal>60.0 [facility] HospitalComment on above:Result Comment: [facility]???s estimated glomerular filtration rate (eG FR) [...] group of individuals. Performed By: #### LAB15 ####[facility] ([facility])[address] [place], [place] [address]Umjlvnr [Mass/Vol]103 mg/jCThaf15-701IgaevicdepAvita Health System Galion HospitalComment on above:Performed By: #### [id number] ####[facility] ([facility])[address] [place], [place] [address]Pcaadzngc [Moles/Vol]4.2 mmol/LNormal 3.5-5.1UnAvita Health System Gal[facility] HospitalComment on above:Performed By: #### LAB15 ####[facility] ([facility])[address] [place] [address]Vtabpt [Moles/Vol]137 mmol/GUuflxe647-034SyftfwqkcbAvita Health System Galion HospitalComment on above:Performed By: #### LAB15 ####[facility] ([facility])[address] [place] [address]Rhyh nitrogen [Mass/Vol]11 mg/dLNormal7-25UnAvita Health System [facility] HospitalComment on above:Performed By: #### [id number] ####[facility] ([facility])[address] [place] [address]JXEH NITROGEN/CREATININE (MASS RATIO) IN SER/PLAS10.8NormalUniversPike Community HospitalComment on above: Performed By: #### [id number] ####[facility] ([facility])[address] [place], [place] [address]PXAxz 20-81-3545Otbsnoneejm distribution width (RBC) [Ratio]15.5 %High 11.5-15.0UnAvita Health System Galion HospitalComment on above:Performed By: #### [id number] #### [facility] ([facility]) [address] [place] [address]PPNAIDWHPFR MEAN CORPUSCULAR HEMOGLOBIN CONCENTRATION (G/DL) BY RKXZPOOHK40.4 g/dLLow32.0-35.0UnAvita Health System Gal[facility] HospitalComment on above:Performed By: #### [id number] #### [facility] ([facility]) [address] [place], [place] [address]Jdvddyrrgr (Bld) [Volume fraction]46.4 %Lbkpvh80.0-55.0 [facility] HospitalComment on above:Performed By: #### [id number] #### [facility] ([facility]) [address] [place], [place] [address]Otwanavqsa (Bld) [Mass/Vol]14.1 g/nYAuypgr70.0-17.0UnAvita Health System Galion HospitalComment on above:Performed By: #### [id number] #### [facility] ([facility]) [address] [place] [address]ZSF (RBC) [Entitic mass]26.4 pgLow27.0-33.0UnAvita Health System Galion HospitalComment on above:Performed By: #### [id number] #### [facility] ([facility]) [address] [place] [address]YSJ (RBC) [Entitic vol]86.7 mFNumjyj11.0-98.0UnAvita Health System Gal[facility] HospitalComment on above:Performed By: #### [id number] #### [facility] ([facility]) [address] [place] [address]JWAAVTVYV (10*3/UL) IN BLOOD AUTOMATED SIAMY324 10*3/uLNormal 150-400UnAvita Health System Gal[facility] HospitalComment on above:Performed By: #### [id number] #### [facility] ([facility]) [address] [place] [address]DHY (Bld) [#/Vol]5.35 10*6/uLNormal4.20-5.70UnAvita Health System [facility] HospitalComment on above:Performed By: #### [id number] #### [facility] ([facility]) [address] [place] [address]YWO (Bld) [#/Vol]7.56 10*3/uLNormal4.00-10.60UnAvita Health System [facility] HospitalComment on above:Performed By: #### [id number] #### [facility] ([facility]) [address] [place] [address]YYZDJMAfw [id number] Medicine and Rehabilitation Consult Note Patient not staffed by PM&R today due to surgery today for IMN placement. Our team will staff tomorrow, 09/25/23. Silvia Zaldivar MDNormalUniversity University Hospitals Health SystemMAGNESIUMon 09-93-4849Hurdcbnhm [Mass/Vol]2.2 mg/dLNormal1.9-2.7UnOhioHealth O'Bleness Hospital Medical CenterComment on above:Performed By: #### [id number] #### [facility] N[facility] PR[facility]ST) ALEXX ZHU [id number] Attestation signed by Sandrine Field MD at [...] Operative Note Date: 09/23/2024 - 09/24/2024 Location: [facility] OR Name: Matty Garces, : 1970, Diagnosis [...] by intramedullary implant with interlocking screws [CPT: 21066] Stress exam of right ankle under anesthesia [CPT: 98970] Intraoperative use of fluoroscopy less than 1 hour by physician [CPT: 13561] Surgeons Primary: Sandrine Field MD Resident - [...] mm x 34 mm interlocking screw Staff: Stock Drier Tender: Emi Francis RN Banana Carrier: CHARLINE Montejo Scrub Person: Araseli Butler CST Indications: Matty Garces is an 53 y.o. male who presented as a transfer from [facility] on 09/23/2024. Patient was transferred due to findings of a right distal third tibial shaft fracture after a fall in the shower. The fracture was closed and was subsequently reduced and splinted at [place] in a long-leg splint. Patient made stable [...] of the soft t (more content not included)...NormalUnAvita Health System [facility]ion Hospital PHOSPHORUSon 85-00-5358Acyrszfmv [Mass/Vol]4.0 mg/dLNormal2.5-5.0UnAvita Health System Galion HospitalComment on above:Performed By: #### [id number] #### [facility] ([facility]) [address] [place], [place] [address]LCUE GLUCOSE METER UNSOLICITED RESULTSon 95-14-7364Sgnuxkt [Mass/Vol]100 mg/nZUzqtnf47-699XggpoxgdpoAvita Health System Galion HospitalComment on above:Order Comment: Waived Testing in the ED is performed under the ED CLIA certificate #[id number].Result Comment: [id number] By: #### [id number] #### [facility] (BE[facility]) [address] [place], [place] [address]IUSOov [id number] PARTIAL THROMBOPLASTIN TIME IN PPP BY COAGULATION ASSAY31.2 PhzwrkkGdprnd27.0-35.0UnAv[facility] Hospital Comment on above:Result Comment: Clinical significance of the APTT is questionable in the presence of heparin.Performed By: #### [id number] ####[facility] ([facility])[address] [place] [address]AXD WITH AUTO DIFFERENTIALon 04-16-0148Ktfuzuzsn (Bld) [#/Vol]0.05 10*3/uLNormal0.00-0.20 [facility] HospitalComment on above:Performed By: #### [id number] ####[facility] ([facility])[address] [place] [address]Qifpxeiyv/100 WBC (Bld)0.5 %Normal0.0-1.0UnAvita Health System Galion HospitalComment on above: Performed By: #### [id number] ####[facility] ([facility])[address] [place], [place] [address]Fetwjgjoopb (Bld) [#/Vol]0.11 10*3/uLNormal0.00-0.50 [facility] HospitalComment on above:Performed By: #### [id number] ####[facility] ([facility])[address] [place] [address]Nlsucmmkkil/100 WBC (Bld)1.0 %Normal0.0-6.0UnAvita Health System Galion HospitalComment on above: Performed By: #### [id number] ####[facility] ([facility])[address] [place], [place] [address]Jmvdorodiqz distribution width (RBC) [Ratio]15.9 %High 11.5-15.0UnAvita Health System Galion HospitalComment on above:Performed By: #### [id number] ####[facility] ([facility])[address] [place] [address] ERYTHROCYTE MEAN CORPUSCULAR HEMOGLOBIN CONCENTRATION (G/DL) BY WIYXVWGOM32.3 g/dLLow32.0-35.0UnAvita Health System Galion HospitalComment on above:Performed By: #### [id number] ####[facility] ([facility])[address] [place], [place] [address]Jaxghvndju (Bld) [Volume fraction]47.8 %Wltohm07.0-55.0UnAvita Health System Galion HospitalComment on above:Performed By: #### [id number] ####[facility] ([facility])[address] [place], [place] [address]Moflcrrnwb (Bld) [Mass/Vol]14.5 g/dL Ggqlti01.0-17.0UnAvita Health System Galion HospitalComment on above:Performed By: #### [id number] ####[facility] ([facility])[address] [place] [address] Immature granulocytes (Bld) [#/Vol]0.10 10*3/uLNormal0.00-0.20UnAvita Health System Galion HospitalComment on above:Performed By: #### [id number] ####[facility] ([facility])[address] [place], [place] [address]Hksxfiba granulocytes/100 WBC (Bld)0.9 %Normal0.0-1.0UnAvita Health System Galion HospitalComment on above: Performed By: #### [id number] ####[facility] ([facility])[address] [place], [place] [address]Hbjksglgmsl (Bld) [#/Vol]0.74 10*3/uLLow1.20-4.00UnAvita Health System Galion HospitalComment on above:Performed By: #### [id number] ####[facility] ([facility])[address] [place], [place] [address]Mbwyqryaqbx/100 WBC (Bld) 7.0 %Low20.0-45.0UnAvita Health System Galion HospitalComment on above:Performed By: #### [id number] ####[facility] ([facility])[address] [place], [place] [address]UIO (RBC) [Entitic mass]26.4 pgLow27.0-33.0UnAvita Health System Galion HospitalComment on above:Performed By: #### [id number] ####[facility] ([facility])[address] [place], [place] [address]YAE (RBC) [Entitic vol]87.1 fLNormal 82.0-98.0UnAvita Health System Galion HospitalComment on above:Performed By: #### [id number] ####[facility] ([facility])[address] [place] [address] Monocytes (Bld) [#/Vol]0.73 10*3/uLNormal0.10-1.00UnAvita Health System Galion HospitalComment on above:Performed By: #### [id number] ####[facility] ([facility])[address] [place], [place] [address]Sjynlzzvm/100 WBC (Bld)6.9 %Normal 5.0-12.0UnAvita Health System Galion HospitalComment on above:Performed By: #### [id number] ####[facility] ([facility])[address] [place] [address] Neutrophils (Bld) [#/Vol]8.83 10*3/uLHigh1.60-7.60UnAvita Health System Galion HospitalComment on above:Performed By: #### [id number] ####[facility] ([facility])[address] [facility] [place], [place] [address]Gjjwktwjaov/100 WBC (Bld)83.7 %High 40.0-72.0UnAvita Health System Galion HospitalComment on above:Performed By: #### [id number] ####[facility] ([facility])[address], [place] [address]IYDZ (PER 100 WBCS) BY AUTOMATED COUNT0.0 %Wheupm4IryujpkdneAvita Health System Galion Hospital Comment on above:Performed By: #### [id number] ####[facility] ([facility])[address] [facility] [place] [address]NXHJJBRQY (10*3/UL) IN BLOOD AUTOMATED FUCIC431 10*3/tWFzcwjb451-010FccmrdlyduAvita Health System Galion HospitalComment on above: Performed By: #### [id number] ####[facility] ([facility])[address] [place], [place] [address]IDC (Bld) [#/Vol]5.49 10*6/uLNormal4.20-5.70UnAvita Health System Galion HospitalComment on above:Performed By: #### [id number] ####[facility] ([facility])[address] [place] [address]WZG (Bld) [#/Vol]10.56 10*3/uLNormal4.00-10.60UnAvita Health System Galion HospitalComment on above: Performed By: #### [id number] ####[facility] ([facility])[address] [place], [place] [address]FWYKOPTZAJGVO METABOLIC PANELon 54-77-2019Orrqupg [Mass/Vol] 3.9 g/dLNormal3.5-5.7UnAvita Health System Galion HospitalComment on above: Performed By: #### [id number] ####[facility] ([facility])[address] [place], [place] [address]YRO [Catalytic activity/Vol]98 U/PNaovnx38-602OcjiihbkogAvita Health System Galion HospitalComment on above:Performed By: #### [id number] ####[facility] ([facility])[address] [place], [place] [address]RRW [Catalytic activity/Vol]34 U/L Normal7-52UnAvita Health System Galion HospitalComment on above:Performed By: #### [id number] ####[facility] ([facility])[address] [place], [place] [address]Wrpck gap [Moles/Vol]11 mmol/LNormal7-20UnAvita Health System Galion HospitalComment on above:Performed By: #### [id number] ####[facility] ([facility])[address] [place], [place] [address]RWF [Catalytic activity/Vol]63 U/UCqfj63-73JtuaqsyynwAvita Health System Galion HospitalComment on above:Performed By: #### [id number] ####[facility] ([facility])[address] [place], [place] [address]Aqsindeum [Mass/Vol]0.7 mg/dL Normal0.3-1.0UnAvita Health System Galion HospitalComment on above:Performed By: #### [id number] ####[facility] ([facility])[address] [place] [address] Calcium [Mass/Vol]8.9 mg/dLNormal8.6-10.3Un[facility] Hospital Comment on above:Performed By: #### [id number] ####[facility] ([facility])[address] [place], [place] [address]Juitoevm [Moles/Vol]101 mmol/XZqqnax81-671 [facility] HospitalComment on above:Performed By: #### [id number] ####[facility] ([facility])[address] [place], [place] [address]LZ7 [Moles/Vol] 27 mmol/NSrxcnp86-76ZvbasruuuiAvita Health System Galion HospitalComment on above: Performed By: #### [id number] ####[facility] ([facility])[address] [place], [place] [address]Riqpwfkcsf [Mass/Vol]0.96 mg/dLNormal0.70-1.30UnAvita Health System Gal[facility] HospitalComment on above:Performed By: #### [id number] ####[facility] ([facility])[address] [place], [place] [address]OWPYKMQWNY FILTRATION RATE ML/MIN/1.73 SQ M.RSBRFWHEX46.9 mL/min/1.73m*2Normal>60.0Un[facility] Hospital Comment on above:Result Comment: [facility]???s estimated glomerular filtration rate (eGFR) will [...] anyone group of individuals.Performed By: #### [id number] ####[facility] ([facility])[address] [place], [place] [address]Tastomc [Mass/Vol]93 mg/wKQzycsx58-700VuidlwlzgpAvita Health System Galion HospitalComment on above:Performed By: #### [id number] ####[facility] ([facility])[address] [place] [address]Mmjbncdxq [Moles/Vol]4.3 mmol/LNormal3.5-5.1UnAvita Health System Galion HospitalComment on above:Performed By: #### [id number] ####[facility] ([facility])[address] [place] [address]Lmobmiq [Mass/Vol]7.2 g/dLNormal 6.0-8.3UnAvita Health System Gal[facility] HospitalComment on above:Performed By: #### [id number] ####[facility] ([facility])[address] [place] [address]Owrrst [Moles/Vol]135 mmol/ECbj749-029DotgpujqtbAvita Health System Galion HospitalComment on above:Performed By: #### [id number] ####[facility] ([facility])[address] [place] [address]Ybuw nitrogen [Mass/Vol]8 mg/dLNormal7-25UnAvita Health System Galion HospitalComment on above:Performed By: #### [id number] ####[facility] ([facility])[address] [place] [address]OKVK NITROGEN/CREATININE (MASS RATIO) IN SER/PLAS8.3NormalUniversPike Community HospitalComment on above: Performed By: #### [id number] ####[facility] ([facility])[address] [place] [address]WZSUPQDxu 65-85-4410NIGXINH Attestation signed by Sandrine Field MD at [...] Alvarez MD Orthopaedic Surgery, Resident Ortho Pager [phone] 09/23/24 6:55 PM May contact the on-call resident with any concerns via the Orthopaedic pager at any time.[facility] HospitalCT ABDOMEN PELVIS W IV CONTRASTon 09-50-9708CC ABDOMEN PELVIS W IV CONTRASTClinical History and [...] PSA is advised. * Electronically signed: Fahad Frazier.[facility] HospitalCT CERVICAL SPINE WO IV CONTRASTon 14-40-4521JG CERVICAL SPINE WO IV CONTRASTCT CERVICAL SPINE [...] acute fracture nor listhesis. Electronically signed: Fahad Frazier.[facility] HospitalCT CHEST W IV CONTRASTon 12-46-4961IY CHEST W IV CONTRASTCT CHEST W IV [...] 3-4 months is recommended. 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 Patient arrives with Rt leg splintedNormalUniversLima Memorial HospitalPROVon 54-84-8821CQESBUSbfrjid of Present Illness Chief Complaint Patient presents with Leg Injury Initial evaluation completed by Dr. Lang. Matty Garces is a 53 y/o male presenting to the ED with c/o leg injury. Pt was transferred from [facility] for right distal tibfib fracture. Pt [...] what they are. History provided by: Patient [place] Coma Scale Score: 15 History Past Medical [...] Procedure Abnormality Status --------- ------ CBC auto differential[[id number]] Abnormal Final result Please view results for these tests on the individual orders. TYPE AND SCREEN ABO G (more content not included)...NormalUnAvita Health System [facility]ion Hospital ETHANOLon 16-07-8802AICBFPW (MG/DL) IN SER/PLAS<10Normal<10UnAvita Health System Galion HospitalComment on above:Performed By: #### [id number] #### [facility] ([facility]) [address] [place], [place] [address]PWEFRDM CALCULATED (%)<0.01NormalUniversPike Community HospitalComment on above:Performed By: #### [id number] #### [facility] ([facility]) [address] [place], [place] [address]BPjv 10-65-3332LDQifdclemdi of [place] Trauma Surgery Chief Complaint: Trauma Fall Mechanism of Injury: 53 y.o. year old male who was brought in via EMS. He had no C-collar or back board in place. Circumstances of injury: Patient states that he was recently admitted to [place] for cellulitis to the [facility], he was discharged yesterday and this morning was home, he got out of bed to take a shower and had a micro seizure and heard his right ankle snap. Denies hitting head or LOC but admits that he doesn't remember the whole event. He went back to [place] ED where a right tib/fib fracture was found and patient was transferred to [facility] Of note patient is on anticoagulant/antiplatelets. Baby aspirin, however he was receiving Shots to prevent blood clots while inpatient at [place] Review of Systems: General: No For Chills, [...] GCS 15 Neck: Cervica (more content not included)...NormalChillicothe HospitalLACTIC ACID, PLASMAon 40-60-2055HNQBPWQ (MMOL/L) IN SER/PLAS0.6 mmol/L Normal0.5-2.2UnAvita Health System Galion HospitalComment on above:Performed By: #### [id number] #### [facility] ([facility]) [address] [facility] [place], [place] [address]KNRJIEDMBij 09-32-4711Qjacjgasd [Mass/Vol]1.8 mg/dLLow1.9-2.7 [facility] HospitalComment on above:Performed By: #### [id number] ####[facility] ([facility])[address] [place], [place] [address]HPGIWZULVBue 20-82-7458Ifehwjbah [Mass/Vol]3.5 mg/dLNormal2.5-5.0UnAvita Health System Galion HospitalComment on above:Performed By: #### [id number] #### [facility] ([facility]) [address] [place], [place] [address]AEFEAKO-YOUqr 69-51-0399YRL IN PPP BY COAGULATION ASSAY1.28High 0.90-1.10UnAvita Health System Galion HospitalComment on above:Result Comment: ACCCP RECOMMENDED INR [...] RANGE. CHEST 1995;108:231S-246S.Performed By: #### [id number] #### [facility] ([facility]) [address] [place], [place] [address]JBTTOJFPRKD TIME (PT) IN PPP BY COAGULATION ASSAY15.9 Seconds High12.3-14.8UnAvita Health System Galion HospitalComment on above:Performed By: #### [id number] #### [facility] ([facility]) [address] [place], [place] [address]CAGLEAFYUI PANEL URINEon 07-81-5903JDQUWHAJWCX+METHAMPHETAMINE SCREEN (PRESENCE) IN URINENegativeNormalNegativeUnAvita Health System Galion HospitalComment on above:Performed By: #### [id number] #### [facility] ([facility]) [address] [place], [place] [address]LUDMRPXGEOXF PRESENCE IN URINE BY SCREEN METHODNegativeNormal NegativeUnAvita Health System Galion HospitalComment on above:Performed By: #### [id number] #### [facility] ([facility]) [address] [place] [place], [place] [address]Jkxfhuqcyellrwi Ql (U)NegativeNormalNegativeUnAvita Health System Galion HospitalComment on above:Performed By: #### [id number] #### [facility] ([facility]) [address] [place], [place] [address]UFGFXWFSCLW (PRESENCE) IN URINE BY SCREEN METHODNegativeNormal NegativeUnAvita Health System Galion HospitalComment on above:Performed By: #### [id number] #### [facility] ([facility]) [address] [place], [place] [address]Dpiaosg Ql (U)NegativeNormalNegativeUnAvita Health System Galion HospitalComment on above:Performed By: #### [id number] #### [facility] ([facility]) [address] [place], [place] [address]ISCWKGBXC (PRESENCE) IN URINE BY SCREEN METHODNegativeNormal NegativeUnAvita Health System Galion HospitalComment on above:Performed By: #### [id number] #### [facility] ([facility]) [address] [place], [place] [address]JGTJJAO (PRESENCE) IN URINE BY SCREEN METHODPositiveAbnormal NegativeUnAvita Health System Galion HospitalComment on above:Performed By: #### [id number] #### [facility] ([facility]) [address] [place] [place], [place] [address]OUQRMDWQYOMXU PRESENCE IN URINE BY SCREEN METHODNegativeNormal NegativeUnAvita Health System Galion HospitalComment on above:Performed By: #### [id number] #### [facility] ([facility]) [address] [place] [place], [place] [address]Ujaraswtqjjv Screen Ql (U)NegativeNormalNegativeUnAvita Health System Galion HospitalComment on above:Performed By: #### [id number] #### [facility] ([facility]) [address] [place] [place], [place] [address]JKXKGRASY ANTIDEPRESSANTS (PRESENCE) IN URINENegativeNormal NegativeChillicothe HospitalComment on above:Performed By: #### [id number] #### [facility] ([facility]) [address] [place], [place] [address]WKEEDQDA Ion 07-70-8626Svrrzhkw I.cardiac [Mass/Vol]0.01 ng/mL Normal0.00-0.04UnAvita Health System Galion HospitalComment on above:Performed By: #### [id number] #### [facility] ([facility]) [address] [place], [place] [address]UGPR AND SCREENon 22-59-1664RI SCREENNegativeNormalUniWhite HospitalComment on above:Performed By: #### [id number] #### [facility] ([facility]) [address] [place], [place] [address]KML group Nom (Bld)ANormalUniversholzer health system of [facility] Comment on above:Performed By: #### [id number] #### [facility] ([facility]) [address] [place], [place] [address]XM TYPE IN BLOODPositiveNormalUniversholzer health system of Texas Health DentonComment on above:Performed By: #### [id number] #### [facility] ([facility]) [address] [place], [place] [address]OLSBAJASEGpj 79-09-6606GRKBCQUOA, TOTAL PRESENCE IN URINE NegativeNormalNegativeChillicothe HospitalComment on above:Order Comment: Microscopics not performed on urines with negative chemical reactions unless requested on original order.Performed By: #### [id number] ####[facility] ([facility])[address] [place], [place] [address]Uczrqya (U)ClearNormalClear [facility] HospitalComment on above:Order Comment: Microscopics not performed on urines with negative chemical reactions unless requested on original order.Performed By: #### [id number] ####[facility] ([facility])[address] [place], [place] [address]Osarc (U)YellowNormalColorless, Yellow, Light-YellowUnAvita Health System Galion HospitalComment on above:Order Comment: Microscopics not performed on urines with negative chemical reactions unless requested on original order.Performed By: #### [id number] ####[facility] ([facility])[address] [place], [place] [address]IJHMFEV (MG/DL) IN URINENormalNormal NormalUnAvita Health System Galion HospitalComment on above:Order Comment: Microscopics not performed on urines with negative chemical reactions unless requested on original order.Performed By: #### [id number] ####[facility] ([facility])[address] [place], [place] [address]UKJEWLDPLO PRESENCE IN URINENegative NormalNegativeUnAvita Health System Galion HospitalComment on above:Order Comment: Microscopics not performed on urines with negative chemical reactions unless requested on original order.Performed By: #### [id number] ####[facility] ([facility])[address] [place], [place] [address]Buxggko Ql (U)NegativeNormalNegative [facility] HospitalComment on above:Order Comment: Microscopics not performed on urines with negative chemical reactions unless requested on original order.Performed By: #### [id number] ####[facility] ([facility])[address] [place], [place] [address]QKKKSSMWQ ESTERASE PRESENCE IN URINE BY TEST STRIP NegativeNormalNegativeUnAvita Health System Galion HospitalComment on above:Order Comment: Microscopics not performed on urines with negative chemical reactions unless requested on original order.Performed By: #### [id number] ####[facility] ([facility])[address] [place], [place] [address]HLQNPHO PRESENCE IN URINENegative NormalNegativeChillicothe HospitalComment on above:Order Comment: Microscopics not performed on urines with negative chemical reactions unless requested on original order.Performed By: #### [id number] ####[facility] ([facility])[address] [place], [place] [address]uM (U)6.0 [pH]Normal5.0-8.0UnAvita Health System Galion HospitalComment on above:Order Comment: Microscopics not performed on urines with negative chemical reactions unless requested on original order.Performed By: #### [id number] ####[facility] ([facility])[address] [place], [place] [address]Tffwynh (U) [Mass/Vol]NegativeNormalNegative [facility] HospitalComment on above:Order Comment: Microscopics not performed on urines with negative chemical reactions unless requested on original order.Performed By: #### [id number] ####[facility] ([facility])[address] [place], [place] [address]Rflqqnie gravity (U) [Rel density]1.050High 1.010-1.030UnAvita Health System Galion HospitalComment on above:Order Comment: Microscopics not performed on urines with negative chemical reactions unless requested on original order.Performed By: #### [id number] ####[facility] ([facility])[address] [place], [place] [address]NTDZEPXMYMLJ (MG/DL) IN URINENormal NormalNormalUniversPike Community HospitalCombeaumont hospital on above:Order Comment: Microscopics not performed on urines with negative chemical reactions unless requested on original order.Performed By: #### [id number] ####[facility] ([facility])[address] [place], [place] [address]CDDZDZO D 25 HYDROXYon 09-23-2024 CALCIDIOL (25 [place] VITAMIN D3) (NG/ML) IN SER/PLAS42.6 ng/fJIwvrur74.0-80.0 [facility] HospitalComment on above:Result Comment: >80.0 Toxicity possiblePerformed By: #### [id number] #### [facility] ([place]) [address] [place] [place], [place] [address]Ydtxtrkzpqb Wound Cultureon 61-51-6494Avucjwmdfyp Wound Culture ORGANISM: Methicillin Resis Staph Aureus [...] RESISTANT TO ALL B-LACTAM DRUGS. PERFORMED BY: [place] [address] PATHOLOGIST SOFTWARE ENGINEER [employer] STEVE ANGEL M.D.[facility] Physician GroupComment on above: Performed By: #### CUSUP #### [facility] [address] [place] [address] USACT CSPINE WO CONon 37-06-8413EV BARIINE WO CONEXAM: CT BARIINE WO CON [...] Electronically authenticated by: ANGEL SAID Date: 2022-12-06 06:37[facility] CenterCT FACIAL BONES WO CONon 81-18-4782FV FACIAL BONES WO CONEXAM: CT FACIAL BONES [...] Electronically authenticated by: ANGEL SAID Date: 2022-12-06 06:41NoTrinity Health System Twin City Medical CenterCT HEAD WO CONon [id number] HEAD WO CONEXAM: CT HEAD WO CON [...] Electronically authenticated by: ANGEL SAID Date: 2022-12-06 06:39[facility] CenterXR ELBOW RT MIN 3 VIEWSon 75-41-6099WL ELBOW RT MIN 3 VIEWS Exam: Radiographs: XR ELBOW RT MIN 3 VIEWS Reason for exam: Elbow pain Comparison: None IMPRESSION: Right elbow degenerative changes. Olecranon spur. Remainder of the right elbow is unremarkable. Electronically authenticated by: MICHAEL CASANOVA Date: 2022-12-06 07:22NoTrinity Health System Twin City Medical CenterXR FOREARM RT 2Von 08-06-2822DC FOREARM RT 2VExam: Radiographs: XR FOREARM RT 2V Reason for exam: Forearm pain Comparison: None IMPRESSION: Mild degenerative changes in the right elbow and wrist. Right forearm is otherwise unremarkable. Electronically authenticated by: MICHAEL CASANOVA Date: 2022-12-06 08:07NoTrinity Health System Twin City Medical CenterPSA, FREE AND TOTAL RATIOon 12-03-2022% Free PSA9.0 %NormalThe [facility] HospitalComment on above:Result Comment: The table below [...] population of men.Performed By: #### [id number] #### [facility] [address] [place] [address] Dr. Shabnam RaePris[facility] specific Ag [Mass/Vol]5.9 ng/mLCritically high0.0-4.0The [facility] HospitalComment on above:Result Comment: Francheska ECLIA methodology. . According to the [employer] [employer], Serum PSA should decrease and [...] of malignant disease.Performed By: #### PSAFREE #### [facility] [address] [place] [address] Dr. Shabnam RaePSA, Free0.53 ng/mLNormalN/AThe [facility] HospitalComment on above:Result Comment: Franc[employer] ECLIA methodology.Performed By: #### PSAFREE #### [facility] [address] [place] [address] Dr. Shabnam RaeINSULINon 93-11-3398Gubxgar17.2 uIU/mLNormal2.6-24.9The [facility] HospitalComment on above:Performed By: #### PSASC #### [facility] [facility] [address] [place] [address] Dr. Shabnam RaeTESTOSTERONE, TOTALon [id number] [Mass/Vol]256 ng/dL Critically bcw554-716Kjc [facility] HospitalComment on above:Result Comment: Adult male reference interval is based on a population of healthy nonobese males (BMI <30) between 19 and 39 years old. Dima et.al. JC[facility] 2017,102;7303-4857. PMID: [id number].Performed By: #### PSASC #### [facility] [address] [place] [address] Dr. Shabnam Dunham AUTO DIFFon [id number] #0.1 103/ulNormal0.0-0.1[facility]'S HospitalComment on above:Performed By: #### PSASC #### [facility] [address] [place] [address] Dr. Shabnam RaeBasophils/100 WBC (Bld)1.0 %Normal0.2-2.0The [facility] Comment on above:Performed By: #### PSASC #### [facility] [address] [place] [address] Dr. Shabnam Rivera #0.1 103/ulNormal0.0-0.7The [facility] HospitalComment on above: Performed By: #### PSASC #### [facility] [address] [place] [address] Dr. Shabnam Samosinophils/100 WBC (Bld)1.8 %Normal0.9-7.0[facility] Comment on above:Performed By: #### PSASC #### [facility] [address] [place] [address] Dr. Shabnam Samrythrocyte distribution width (RBC) [Ratio]14.8 %Rwqgpz09.0-15.0 The [facility] HospitalComment on above:Performed By: #### PSASC #### [facility] [address] [place] [address] Dr. Shabnam RaeHematocrit (Bld) [Volume fraction]49.9 %Rdccga77.0-54.0The [facility] HospitalComment on above:Performed By: #### PSASC #### [facility] [address] [place] [address] Dr. Shabnam RaeHemoglobin (Bld) [Mass/Vol]16.0 g/eSSixadn59.0-18.0The [facility] HospitalComment on above:Performed By: #### PSASC #### [facility] [address] [place] [address] Dr. Shabnam Hayward #0.04 10e3/ulCritically high0.00-0.03[facility] Comment on above:Performed By: #### PSASC #### [facility] [address] [place] [address] Dr. Shabnam Hayward %0.6 %Critically high0.0-0.5ThBlanchard Valley Health System Bluffton HospitalComment on above:Performed By: #### PSASC #### [facility] [address] [place] [address] Dr. Shabnam PandyaH #1.0 103/ulCritically low1.2-3.8The [facility] Comment on above:Performed By: #### PSASC #### [facility] [address] [place] [address] Dr. Shabnam Diazmphocytes/100 WBC (Bld)16.2 %Critically low20.5-60.0The [facility] HospitalComment on above:Performed By: #### PSASC #### [facility] [address] [place] [address] Dr. Shabnam Daniel DIFF REQNONormalThe [facility] HospitalComment on above: Performed By: #### PSASC #### [facility] [address] [place] [address] Dr. Shabnam Nava (RBC) [Entitic mass]27.7 qcWvzxrg54.9-34.0The [facility] HospitalComment on above:Performed By: #### PSASC #### [facility] [address] [place] [address] Dr. Shabnam Nava (RBC) [Mass/Vol]32.1 g/xGLdxkip54.9-35.2The [facility] HospitalComment on above:Performed By: #### PSASC #### [facility] [address] [place] [address] Dr. Shabnam Nava (RBC) [Entitic vol]86.3 jIZocemi46.0-94.0The [facility] HospitalComment on above:Performed By: #### PSASC #### [facility] [address] [place] [address] Dr. Shabnam Mcfarland #0.5 103/ulNormal0.3-0.8The [facility] HospitalComment on above:Performed By: #### PSASC #### [facility] [address] [place] [address] Dr. Shabnam Brunnerocytes/100 WBC (Bld)7.6 %Normal1.7-12.0The [facility] Comment on above:Performed By: #### PSASC #### [facility] [address] [place] [address] Dr. Shabnam Medrano #4.6 103/ulNormal1.4-6.5The [facility] HospitalComment on above:Performed By: #### PSASC #### [facility] [address] [place] [address] Dr. Shabnam Larautrophils/100 WBC (Bld)72.8 %Brbtll31.0-75.0The [facility] HospitalComment on above:Performed By: #### PSASC #### [facility] [address] [address] [address] Shabnam Miranda mean volume (Bld) [Entitic vol]9.8 fLNormal9.5-13.5The [facility] HospitalComment on above:Performed By: #### PSASC #### [facility] [address] [address] [address] Shabnam RaePLT203 103/ufYjojdu048-047Mtp [facility] HospitalComment on above: Performed By: #### PSASC #### [facility] [address] [place] [address] Dr. Shabnam RaeRBC5.78 106/ulNormal4.70-6.10The [facility] HospitalComment on above:Performed By: #### PSASC #### [facility] [address] [place] [address] Dr. Shabnam RaeWBC6.3 103/ulNormal4.0-11.0The [facility] HospitalComment on above: Performed By: #### PSASC #### [facility] [address] [place] [address] Dr. Shabnam RaeFRPRISCILLA THYROXINE INDEX T7on 47-49-5657WKS2.82Vfwnsj0.30-4.50The [facility] HospitalComment on above:Performed By: #### TSH, CMP, LIPID, T7, URIC #### [facility] [address] [address] [address] Shabnam RaeT3U33.0 %Dumbly66.0-40.0The [facility] HospitalComment on above: Performed By: #### TSH, CMP, LIPID, T7, URIC #### [facility] [address] [address] [address] Shabnam RaeT4 [Mass/Vol]6.20 ug/dLNormal4.50-12.10The [facility] Comment on above:Performed By: #### TSH, CMP, LIPID, T7, URIC #### [facility] [address] [address] [address] Shabnam RaeGLYCOHEMOGLOBIN A1Con [id number] RECOMMENDATIONSEE BELOWNormal The [facility] HospitalComment on above:Result Comment: ADA RECOMMENDED LIMIT 4.0 - 6.0 ADA THERAPEUTIC TARGET < 7.0 ACTION SUGGESTED > 7.0Performed By: #### PSASC #### [facility] [address] [place] [address] Dr. Shabnam RaeGlucose [Mass/Vol]114 mg/dLNoTrinity Health System Twin City Medical CenterComment on above:Performed By: #### PSASC #### [facility] [address] [place] [address] Dr. Shabnam RaeHbA1c (Bld) [Mass fraction]5.6 %Normal4.5-6.2The [facility] HospitalComment on above:Performed By: #### PSASC #### [facility] [address] [place] [address] Dr. Shabnam RaeLIPID PROFILEon [id number]-HDL RATIO NORMSEE OhioHealthComment on above:Result Comment: 3.3 - 4.4 LOW RISK 4.4 - 7.1 AVERAGE RISK 7.1 - 11.0 MODERATE RISK >11.0 HIGH RISKPerformed By: #### TSH, CMP, LIPID, T7, URIC #### [facility] [address] [place] [address] Dr. Shabnam Mckeonesterol [Mass/Vol]176 mg/dLNormal<=200The [facility] Comment on above:Performed By: #### TSH, CMP, LIPID, T7, URIC #### [facility] [address] [address] [address] Shabnam RaeCholesterol in HDL [Mass/Vol]48 mg/aSBevels99-02Udo [facility] HospitalComment on above:Performed By: #### TSH, CMP, LIPID, T7, URIC #### [facility] [address] [place] [address] Dr. Shabnam Mckeonesterol in LDL [Mass/Vol]108.2 mg/dLNoTrinity Health System Twin City Medical CenterComment on above:Performed By: #### TSH, CMP, LIPID, T7, URIC #### [facility] [address] [address] [address] Shabnam RaeCholesterol.total/Cholesterol in HDL [Mass ratio]3.7 {ratio} NormalThe [facility] HospitalComment on above:Performed By: #### TSH, CMP, LIPID, T7, URIC #### [facility] [address] [address] [address] Shabnam Hanley NORMAL> or = 60 mg/dl - LOW CARDIOVASCULAR RISK <40 mg/dl - HIGH CARDIOVASCULAR RISKSt. Mary's Medical CenterComment on above:Performed By: #### TSH, CMP, LIPID, T7, URIC #### [facility] [address] [address] [address] Shabnam RaeLDL CALC NORMALSEE BELOWSt. Mary's Medical CenterComment on above:Result Comment: <100 mg/dl OPTIMAL 100 - 129 mg/dl NEAR OR ABOVE OPTIMAL 130 - 159 mg/dl BORDERLINE HIGH 160 - 189 mg/dl HIGH >190 mg/dl VERY HIGH Performed By: #### TSH, CMP, LIPID, T7, URIC #### [facility] [address] [address] [address] Shabnam RaeTriglyceride [Mass/Vol]99 mg/dLNormal<=150The [facility] Comment on above:Performed By: #### TSH, CMP, LIPID, T7, URIC #### [facility] [address] [address] [address] Shabnam RaeVLDL CALC19.8 mg/dLNoTrinity Health System Twin City Medical CenterComment on above: Performed By: #### TSH, CMP, LIPID, T7, URIC #### [facility] [address] [address] [address] Shabnam RaePROF 14(COMP METB)on 96-16-1701Jxjscvm [Mass/Vol]4.1 g/dLNormal 3.4-5.0The [facility] Hospitalment on above:Performed By: #### TSH, CMP, LIPID, T7, URIC #### [facility] [address] [address] [address] Shabnam RaeAlbumin/Globulin [Mass ratio]1.1 {ratio}NormalThe [facility] HospitalComment on above:Performed By: #### TSH, CMP, LIPID, T7, URIC #### [facility] [address] [place] [address] Dr. Shabnam Rizzo [Catalytic activity/Vol]101 U/JMlinbm40-645Uvu [facility] HospitalComment on above:Performed By: #### TSH, CMP, LIPID, T7, URIC #### [facility] [address] [place] [address] Dr. Shabnam Sofia [Catalytic activity/Vol]26 U/SEnrfrn22-88Nny [facility] HospitalComment on above:Performed By: #### TSH, CMP, LIPID, T7, URIC #### [facility] [address] [place] [address] Dr. Shabnam Johnsonon gap [Moles/Vol]10.1 mmol/LNormalThe [facility] Comment on above:Performed By: #### TSH, CMP, LIPID, T7, URIC #### [facility] [address] [place] [address] Dr. Shabnam Jean [Catalytic activity/Vol]19 U/VCgpsxz44-33Lcw [facility] HospitalComment on above:Performed By: #### TSH, CMP, LIPID, T7, URIC #### [facility] [address] [place] [address] Dr. Shabnam RaeBilirubin [Mass/Vol]0.8 mg/dLNormal0.2-1.0[facility] Comment on above:Performed By: #### TSH, CMP, LIPID, T7, URIC #### [facility] [address] [place] [address] Dr. Shabnam RaeCalcium [Mass/Vol]9.5 mg/dLNormal8.5-10.1[facility] Comment on above:Performed By: #### TSH, CMP, LIPID, T7, URIC #### [facility] [address] [place] [address] Dr. Shabnam RaeChloride [Moles/Vol]102 mmol/QNdhiku95-787Cft [facility] Comment on above:Performed By: #### TSH, CMP, LIPID, T7, URIC #### [facility] [address] [place] [address] Dr. Shabnam RaeCO2 [Moles/Vol]32.4 mmol/LCritically high21.0-32.0The [facility] HospitalComment on above:Performed By: #### TSH, CMP, LIPID, T7, URIC #### [facility] [address] [place] [address] Dr. Shabnam RaeCreatinine [Mass/Vol]1.00 mg/dLNormal0.70-1.30The [facility] HospitalComment on above:Performed By: #### TSH, CMP, LIPID, T7, URIC #### [facility] [address] [place] [address] Dr. Shabnam SamGFR-AF SOUTH AFRICAN>60Normal>=60The [facility] HospitalComment on above:Performed By: #### TSH, CMP, LIPID, T7, URIC #### [facility] [address] [place] [address] Dr. Shabnam SamGFR-NON AF SOUTH AFRICAN>60Normal>=60The [facility] HospitalComment on above:Performed By: #### TSH, CMP, LIPID, T7, URIC #### [facility] [address] [place] [address] Dr. Shabnam RaeGlobulin (S) [Mass/Vol]3.8 g/dLNormalThe [facility] HospitalComment on above:Performed By: #### TSH, CMP, LIPID, T7, URIC #### [facility] [address] [place] [address] Dr. Shabnam ReaGlucose [Mass/Vol]94 mg/fAZannkk17-320WiaNationwide Children'S Hospital Comment on above:Performed By: #### TSH, CMP, LIPID, T7, URIC #### [facility] [address] [place] [address] Dr. Shabnam RaePotassium [Moles/Vol]3.5 mmol/LNormal3.5-5.1The [facility] Comment on above:Performed By: #### TSH, CMP, LIPID, T7, URIC #### [facility] [address] [place] [address] Dr. Shabnam RaeProtein [Mass/Vol]7.9 g/dLNormal6.4-8.2The [facility] Comment on above:Performed By: #### TSH, CMP, LIPID, T7, URIC #### [facility] [address] [place] [address] Dr. Shabnam RaeSodium [Moles/Vol]141 mmol/GFfnrfk829-005Yxe [facility] Comment on above:Performed By: #### TSH, CMP, LIPID, T7, URIC #### [facility] [address] [place] [address] Dr. Shabnam RaeUrea nitrogen [Mass/Vol]15.0 mg/dLNormal7.0-18.0The [facility] HospitalComment on above:Performed By: #### TSH, CMP, LIPID, T7, URIC #### [facility] [address] [place] [address] Dr. Shabnam RaeUrea nitrogen/Creatinine [Mass ratio]15.0 mg/mgNormalThe [facility] HospitalComment on above:Performed By: #### TSH, CMP, LIPID, T7, URIC #### [facility] [address] [place] [address] Dr. Shabnam GoldbergHomeaghan 01-17-0576ZHV3.504 uIU/mLNormal0.358-3.740The [facility] HospitalComment on above:Performed By: #### TSH, CMP, LIPID, T7, URIC #### [facility] [address] [place] [address] Dr. Shabnam RaeURIC ACID SERUMon 65-87-8472Vgcff [Mass/Vol]6.9 mg/dLNormal 3.5-7.2The [facility] HospitalComment on above:Performed By: #### TSH, CMP, LIPID, T7, URIC #### [facility] [address] [place] [address] Dr. Shabnam RaeTESTOSTERONE, TOTALon 83-14-3253Qrchzybhouvg [Mass/Vol]244 ng/dL Critically tky263-275Stj [facility] HospitalComment on above:Result Comment: Adult male reference interval is based on a population of healthy nonobese males (BMI <30) between 19 and 39 years old. Dima, et.al. [facility] 2017,102;0305-5340. PMID: [id number].Performed By: #### PSAFREE #### [facility] [address] [place] [address] Dr. Shabnam RaeTESTOSTERONE, FREE,DIRECT, TOTALon 57-31-5922Tatk Testosterone(Direct)2.1 pg/mLCritically low7.2-24.0[facility]S HospitalComment on above:Result Comment: Performed at: BNPerformed By: #### CVDTBH #### [facility] [address] [place] [address] Dr. Shabnam RaeTestosterone [Mass/Vol]252 ng/dLCritically nyz895-552Jhk [facility] HospitalComment on above:Result Comment: Adult male reference interval is based on a population of healthy nonobese males (BMI <30) between 19 and 39 years old. Travbrad, et.al. [facility] 2017,102;1712-0104. PMID: [id number]. Performed at: CBPerformed By: #### CVDTBH #### [facility] [address] [place] [address] Dr. Shabnam Ashford 39-19-6859Ljphu [id number]#1.00CD:127[facility] Northcreenson 08-07-1288Cvbdvgr [id number]#1.00CD:127NoSumma Health Akron [id number]#1.00CD:127[facility] HospitalUrology Office/Clinic Noteon 72-09-6346Oyravat Office/Clinic NoteChief Complaint referred Hydrocele HPI Staff [...] Ongoing No qualifying data (more content not included)...[facility] HospitalComment on above:Result Comment: Electronically Signed By: Viola Grullon MD\.br\Date and Time Signed: 02/26/22 00:20EDT\.br\Electronically Co-Signed By: Helen Leung\.br\Date and Time Co-Signed: 02/25/22 11:16 EDTAmbulatory Visit Summaryon [id number] Visit Summary MATTY GARCES :1970 Visit Date:02/25/2022 Ambulatory Visit Instructions Your Diagnosis Hydrocele Varicocele BPH without urinary obstruction Tests Performed Urnls Dip Stick Auto w/o Microscopy POC 26219 Your Care Team Attending Physician - Viola [...] Urnls Dip Stick Auto w/o Microscopy POC 39191 (02/25/2022) Bilirubin Urine Dipstick - Negative Blood Urine Dipstick - Negative Glucose Urine Dipstick - Negative Ketones Urine Dipstick - Negative Leukocytes Urine Dipstick - Negative Nitrite Urine Dipstick - Negative Protein Urine Dipstick - Negative Specific Thompson Urine Dipstick - >=1.030 Urine Appearance Urine [...] the hydrocele for any changes. ? Take iybf-zpc-hotdwok and prescription medicines only as told by [...] is not intended t (more content not included)...[facility] Educationon 94-33-8787Wacutqr EducationUrology Hydrocele, Adult A hydrocele is a [...] the hydrocele for any changes. ? Take izsp-wor-sosmbbc and prescription medicines only as told by [...] Reviewed: 09/10/2018 Elsevier Patient Education ? 2019 [employer] ED Note-Physicianon [id number] Note-Physician [id number]#1.00CD:[address] [place], [place] [address]RAD - Ultrasound Reporton [id number] - Ultrasound Report [id number]#1.00CD:[address] [place], [place] [address]RAD - CT Reporton [id number] - CT Report [id number]#1.00CD:[address] [place], [place] [address]RAD - CT [id number]#1.00CD:[address] [place], [place] [address]CBC AUTO DIFFon 65-50-0076EFRH #0.0 103/ulNormal 0.0-0.1The [facility] HospitalComment on above:Performed By: #### PSAFRPRISCILLA #### [facility] [address] [address] [address] Shabnam Benavidezphils/100 WBC (Bld)0.6 %Normal0.2-2.0The [facility] Comment on above:Performed By: #### PSAFREE #### [facility] [address] [address] [address] Shabnam Rivera #0.1 103/ulNormal0.0-0.7The [facility] HospitalComment on above: Performed By: #### PSAFREE #### [facility] [address] [place] [address] Dr. Shabnam Samosinophils/100 WBC (Bld)2.1 %Normal0.9-7.0The [facility] Comment on above:Performed By: #### PSAFREE #### [facility] [address] [place] [address] Dr. Shabnam Samrythrocyte distribution width (RBC) [Ratio]13.1 %Vuiavv25.0-15.0 The [facility] HospitalComment on above:Performed By: #### PSAFREE #### [facility] [address] [place] [address] Dr. Shabnam RaeHematocrit (Bld) [Volume fraction]43.1 %Qdmaat52.0-54.0The [facility] HospitalComment on above:Performed By: #### PSAFREE #### [facility] [address] [place] [address] Dr. Shabnam RaeHemoglobin (Bld) [Mass/Vol]13.7 g/dLCritically low14.0-18.0The [facility] HospitalComment on above:Performed By: #### PSAFREE #### [facility] [address] [place] [address] Dr. Shabnam Hayward #0.04 10e3/ulCritically high0.00-0.03The [facility] Comment on above:Performed By: #### PSAFREE #### [facility] [address] [place] [address] Dr. Shabnam Hayward %0.6 %Critically high0.0-0.5The [facility] HospitalComment on above:Performed By: #### PSAFREE #### [facility] [address] [place] [address] Dr. Shabnam Gomez #0.9 103/ulCritically low1.2-3.8The [facility] Comment on above:Performed By: #### PSAFREE #### [facility] [address] [place] [address] Dr. Shabnam Diazmphocytes/100 WBC (Bld)13.1 %Critically low20.5-60.0The [facility] HospitalComment on above:Performed By: #### PSAFREE #### [facility] [address] [place] [address] Dr. Shabnam Daniel DIFF REQNONormalThe [facility] HospitalComment on above: Performed By: #### PSAFREE #### [facility] [address] [place] [address] Dr. Shabnam Nava (RBC) [Entitic mass]29.5 saWwkrgu51.9-34.0The [facility] HospitalComment on above:Performed By: #### PSAFREE #### [facility] [address] [place] [address] Dr. Shabnam Nava (RBC) [Mass/Vol]31.8 g/qUQyazld26.9-35.2The [facility] HospitalComment on above:Performed By: #### PSAFREE #### [facility] [address] [place] [address] Dr. Shabnam Nava (RBC) [Entitic vol]92.9 sPNzrybm33.0-94.0[facility] HospitalComment on above:Performed By: #### PSAFREE #### [facility] [address] [place] [address] Dr. Shabnam Mcfarland #0.4 103/ulNormal0.3-0.8The [facility] HospitalComment on above:Performed By: #### PSAFREE #### [facility] [address] [place] [address] Dr. Shabnam Brunnerocytes/100 WBC (Bld)5.4 %Normal1.7-12.0[facility] Comment on above:Performed By: #### PSAFREE #### [facility] [address] [place] [address] Dr. Shabnam Medrano #5.2 103/ulNormal1.4-6.5The [facility] HospitalComment on above:Performed By: #### PSAFREE #### [facility] [address] [place] [address] Dr. Shabnam Larautrophils/100 WBC (Bld)78.2 %Critically high43.0-75.0The [facility] HospitalComment on above:Performed By: #### PSAFREE #### [facility] [address] [place] [address] Dr. Shabnam Miranda mean volume (Bld) [Entitic vol]10.9 fLNormal9.5-13.5The [facility] HospitalComment on above:Performed By: #### PSAFREE #### [facility] [address] [place] [address] Dr. Shabnam RaePLT153 103/egUecekh321-761Hlu [facility] HospitalComment on above: Performed By: #### PSAFREE #### [facility] [address] [place] [address] Dr. Shabnam RaeRBC4.64 106/ulCritically low4.70-6.10The [facility] HospitalComment on above:Performed By: #### PSAFREE #### [facility] [address] [place] [address] Dr. Shabnam RaeWBC6.6 103/ulNormal4.0-11.0The [facility] HospitalComment on above: Performed By: #### PSAFREE #### [facility] [address] [place] [address] Dr. Shabnam Bang 29-61-8841ZJP9.9 mg/dLNormal<=1.0The [facility] Comment on above:Performed By: #### PSAFREE #### [facility] [address] [place] [address] Dr. Shabnam Ortiz 14(COMP METB)on [id number] [Mass/Vol]3.6 g/dLNormal 3.4-5.0The [facility] HospitalComment on above:Performed By: #### PSAFREE #### [facility] [address] [address] [address] Shabnam RaeAlbumin/Globulin [Mass ratio]1.0 {ratio}NormalThe [facility] HospitalComment on above:Performed By: #### PSAFREE #### [facility] [address] [address] [address] Shabnam JohnstonP [Catalytic activity/Vol]114 U/GJgbzdy36-104Wua [facility] HospitalComment on above:Performed By: #### PSAFREE #### [facility] [address] [address] [address] Shabnam Sofia [Catalytic activity/Vol]26 U/QGhrvop42-09Nkx [facility] HospitalComment on above:Performed By: #### PSAFREE #### [facility] [address] [address] [address] Shabnam Johnsonon gap [Moles/Vol]9.3 mmol/LNormalThe [facility] HospitalComment on above:Performed By: #### PSAFREE #### [facility] [address] [address] [address] Shabnam RaeAST [Catalytic activity/Vol]19 U/HYjlrsa56-76Rwr [facility] HospitalComment on above:Performed By: #### PSAFREE #### [facility] [address] [address] [address] Shabnam RaeBilirubin [Mass/Vol]0.5 mg/dLNormal0.2-1.0The [facility] Comment on above:Performed By: #### PSAFREE #### [facility] [address] [address] [address] Shabnam RaeCalcium [Mass/Vol]8.9 mg/dLNormal8.5-10.1The [facility] Comment on above:Performed By: #### PSAFREE #### [facility] [address] [address] [address] Shabnam RaeChloride [Moles/Vol]106 mmol/IExylca64-515Lyy [facility] Comment on above:Performed By: #### PSAFREE #### [facility] [address] [address] [address] Shabnam RaeCO2 [Moles/Vol]30.7 mmol/FCinwyf15.0-32.0The [facility] Comment on above:Performed By: #### PSAFREE #### [facility] [address] [address] [address] Shabnam RaeCreatinine [Mass/Vol]1.15 mg/dLNormal0.70-1.30The [facility] HospitalComment on above:Performed By: #### PSAFREE #### [facility] [address] [address] [address] Shabnam SamGFR-AF SOUTH AFRICAN>60Normal>=60The [facility] HospitalComment on above:Performed By: #### PSAFREE #### [facility] [address] [address] [address] Shabnam SamGFR-NON AF SOUTH AFRICAN>60Normal>=60The [facility] HospitalComment on above:Performed By: #### PSAFREE #### [facility] [address] [address] [address] Shabnam RaeGlobulin (S) [Mass/Vol]3.6 g/dLNormalThe [facility] HospitalComment on above:Performed By: #### PSAFREE #### [facility] [address] [address] [address] Shabnam RaeGlucose [Mass/Vol]117 mg/dLCritically ievy65-032Udv [facility] HospitalComment on above:Performed By: #### PSAFREE #### [facility] [address] [address] [address] Shabnam RaePotassium [Moles/Vol]4.0 mmol/LNormal3.5-5.1The [facility] Comment on above:Performed By: #### PSAFREE #### [facility] [address] [address] [address] Shabnam RaeProtein [Mass/Vol]7.2 g/dLNormal6.1-8.2The [facility] Comment on above:Performed By: #### PSAFREE #### [facility] [address] [address] [address] Shabnam RaeSodium [Moles/Vol]142 mmol/YOpprxy269-999Gku [facility] Comment on above:Performed By: #### PSAFREE #### [facility] [address] [address] [address] Shabnam RaeUrea nitrogen [Mass/Vol]15.0 mg/dLNormal7.0-18.0The [facility] HospitalComment on above:Performed By: #### PSAFREE #### [facility] [address] [address] [address] Shabnam Gu nitrogen/Creatinine [Mass ratio]13.0 mg/mgNormalThe [facility] HospitalComment on above:Performed By: #### PSAFREE #### [facility] [address] [address] [address] Shabnam Floyd SCROTUMon [id number] SCROTUMEXAMINATION: [place] SCROTUM HISTORY: Acute pelvic pain [...] Electronically authenticated by: ALVINA CAICEDO Date: 2022-01-05 08:48NormalThTrumbull Regional [facility] Center AUTO DIFFon [id number] #0.1 103/ulNormal0.0-0.1The [facility] HospitalComment on above:Performed By: #### CBC #### [facility] [address] [address] [address] Shabnam RaeBasophils/100 WBC (Bld)0.8 %Normal0.2-2.0The [facility] Comment on above:Performed By: #### CBC #### [facility] [address] [place] [address] Dr. Shabnam Rivera #0.1 103/ulNormal0.0-0.7The [facility] HospitalComment on above: Performed By: #### CBC #### [facility] [address] [place] [address] Dr. Shabnam Samosinophils/100 WBC (Bld)1.5 %Normal0.9-7.0The [facility] Comment on above:Performed By: #### CBC #### [facility] [address] [place] [address] Dr. Shabnam Samrythrocyte distribution width (RBC) [Ratio]12.8 %Ntojov73.0-15.0 [facility] HospitalComment on above:Performed By: #### CBC #### [facility] [address] [place] [address] Dr. Shabnam RaeHematocrit (Bld) [Volume fraction]40.3 %Critically low42.0-54.0 The [facility] HospitalComment on above:Performed By: #### CBC #### [facility] [address] [place] [address] Dr. Shabnam RaeHemoglobin (Bld) [Mass/Vol]13.4 g/dLCritically low14.0-18.0The [facility] HospitalComment on above:Performed By: #### CBC #### [facility] [address] [address] [address] Shabnam Hayward #0.03 10e3/ulNormal0.00-0.03The [facility] HospitalComment on above:Performed By: #### CBC #### [facility] [address] [address] [address] Shabnam Hayward %0.5 %Normal0.0-0.5The [facility] HospitalComment on above: Performed By: #### CBC #### [facility] [address] [address] [address] Shabnam Gomez #1.0 103/ulCritically low1.2-3.8The [facility] Comment on above:Performed By: #### CBC #### [facility] [address] [place] [address] Dr. Shabnam Pandyahocytes/100 WBC (Bld)16.4 %Critically low20.5-60.0The [facility] HospitalComment on above:Performed By: #### CBC #### [facility] [address] [place] [address] Dr. Shabnam GranadoUAL DIFF REQNONormalThe [facility] HospitalComment on above: Performed By: #### CBC #### [facility] [address] [place] [address] Dr. Shabnam Nava (RBC) [Entitic mass]29.5 svVuepxz46.9-34.0The [facility] HospitalComment on above:Performed By: #### CBC #### [facility] [address] [place] [address] Dr. Shabnam Nava (RBC) [Mass/Vol]33.3 g/xBSksjiq50.9-35.2The [facility] HospitalComment on above:Performed By: #### CBC #### [facility] [address] [place] [address] Dr. Shabnam Nava (RBC) [Entitic vol]88.8 wAUgcorh63.0-94.0The [facility] HospitalComment on above:Performed By: #### CBC #### [facility] [address] [address] [address] Shabnam Mcfarland #0.6 103/ulNormal0.3-0.8The [facility] HospitalComment on above:Performed By: #### CBC #### [facility] [address] [address] [address] Shabnam Brunnerocytes/100 WBC (Bld)9.6 %Normal1.7-12.0The [facility] Comment on above:Performed By: #### CBC #### [facility] [address] [place] [address] Dr. Shabnam Medrano #4.4 103/ulNormal1.4-6.5The [facility] HospitalComment on above:Performed By: #### CBC #### [facility] [address] [place] [address] Dr. Shabnam Larautrophils/100 WBC (Bld)71.2 %Efcrjj44.0-75.0The [facility] HospitalComment on above:Performed By: #### CBC #### [facility] [address] [place] [address] Dr. Shabnam Miranda mean volume (Bld) [Entitic vol]10.8 fLNormal9.5-13.5The [facility] HospitalComment on above:Performed By: #### CBC #### [facility] [address] [place] [address] Dr. Shabnam RaePLT158 103/diWgrwzy028-475Zvy [facility] HospitalComment on above: Performed By: #### CBC #### [facility] [address] [place] [address] Dr. Shabnam RaeRBC4.54 106/ulCritically low4.70-6.10The [facility] HospitalComment on above:Performed By: #### CBC #### [facility] [address] [place] [address] Dr. Shabnam RaeWBC6.2 103/ulNormal4.0-11.0The [facility] HospitalComment on above: Performed By: #### CBC #### [facility] [address] [address] [address] Shabnam RaeCT ABD/PELV W CONon [id number] ABD/PELV W CONCT ABD/PELV W CON: 01/04/2022 [...] by: MAYRA BERNAL Date: 2022-01-04 05:19Normal The [facility] HospitalCT PELVIS WO CONon [id number] PELVIS WO CONEXAMINATION: CT PELVIS WO CON [...] Electronically authenticated by: MANUEL HOUGH Date: 2022-01-04 08:54NormParkview HealthCULTURE URINEon [id number] URINECulture Observations: No growthNoTrinity Health System Twin City Medical CenterComment on above:Performed By: #### PSASC #### [facility] [address] [address] [address] Shabnam Mckinney-19 PCR ([facility])on [id number]-CoV-2 (COVID-19) RNA ELIJAH+probe Ql (Unsp spec)Not detectedNormalNOT DETECTEDThe [facility] Comment on above:Result Comment: When diagnostic testing is negative, the possibility of a false negative should be considered in the context of a patient's recent exposures and the presence of clinical signs and symptoms consistent with SARS-CoV-2. This test is not yet approved or cleared by the [place] Food and Drug Administration (FDA). This test was developed by [employer], [place], [place]. The performance characteristics of this test were validated by The [facility]. The results are not intended to be used as the sole means for clinical diagnosis or patient management decisions. The [facility] is authorized under Clinical Laboratory Improvement [...] for this test is supported by the [employer] of Health and Human Service's declaration that [...] longer be used).Performed By: #### CVDTBH #### [facility] [address] [place] [address] Dr. Shabnam Cedillo URINE PROFILEon 31-62-1274Onfagadvt Ql (U)NegativeNormal NEGATIVEThe [facility] HospitalComment on above:Performed By: #### PSASC #### [facility] [address] [place] [address] Dr. Shabnam Haile (U)CLEARNormalCLEARThe [facility] HospitalComment on above: Performed By: #### PSASC #### [facility] [address] [place] [address] Dr. Shabnam Mason (U)YELLOWNormalYELLOWDayton VA Medical Center on above: Performed By: #### PSASC #### [facility] [address] [place] [address] Dr. Shabnam Plummer micrscopic examination will be performed if indicated. NormalThe [facility] HospitalComment on above:Performed By: #### PSASC #### [facility] [address] [address] [address] Shabnam RaeGlucose Ql (U)NegativeNormalNEGATIVENationwide Children'S HospitalComment on above:Performed By: #### PSASC #### [facility] [address] [address] [address] Shabnam RaeHemoglobin Ql (U)NegativeNormalNEGATIVENationwide Children'S Hospital Comment on above:Performed By: #### PSASC #### [facility] [address] [address] [address] Shabnam RaeKetones Ql (U)NegativeNormalNEGATIVENationwide Children'S HospitalComment on above:Performed By: #### PSASC #### [facility] [address] [place] [address] Dr. Shabnam RaeLEUKOCYTESNegativeNormalNEGATIVENationwide Children'S HospitalComment on above:Performed By: #### PSASC #### [facility] [address] [place] [address] Dr. Shabnam RaeNitrite Ql (U)NegativeNormalNEGATIVENationwide Children'S HospitalComment on above:Performed By: #### PSASC #### [facility] [address] [place] [address] Dr. Shabnam RaepH (U)6.5 [pH]Normal5-9N[facility] Children'S HospitalComment on above: Performed By: #### PSASC #### [facility] [address] [address] [address] Shabnam RaeSPEC GRAVITY1.111Qsdhmp5.005-<=1.025N[facility] Children'S HospitalComment on above:Performed By: #### PSASC #### [facility] [address] [place] [address] Dr. Shabnam RaeUA PROTEINNegativeNormalNEGATIVE/ TRACENationwide Children'S Hospital Comment on above:Performed By: #### PSASC #### [facility] [address] [place] [address] Dr. Shabnam RaeUR MICRO INDNOT INDICATEDNoalThBlanchard Valley Health System Bluffton HospitalComment on above:Performed By: #### PSASC #### [facility] [address] [place] [address] Dr. Shabnam Wubilinogen Qn (U)0.2 {Sarai'U}/dLNormal0.2 - 1.0The [facility] HospitalComment on above:Performed By: #### PSASC #### [facility] [address] [place] [address] Dr. Shabnam RaeLACTATE/LACTIC ACIDon [id number] [Moles/Vol]1.0 mmol/L Normal0.4-2.0The [facility] HospitalComment on above:Performed By: #### PSASC #### [facility] [address] [place] [address] Dr. Shabnam MoonF CHEM 8 (BAS METB)on 98-94-9461Kidcv gap [Moles/Vol]10.0 mmol/LNormalThe [facility] HospitalComment on above:Performed By: #### BMP #### [facility] [address] [place] [address] Dr. Shabnam RaeCalcium [Mass/Vol]8.5 mg/dLNormal8.5-10.1The [facility] Comment on above:Performed By: #### BMP #### [facility] [address] [place] [address] Dr. Shabnam RaeChloride [Moles/Vol]103 mmol/MMtorcv57-140Oge [facility] Comment on above:Performed By: #### BMP #### [facility] [address] [place] [address] Dr. Shabnam RaeCO2 [Moles/Vol]29.2 mmol/ENlmdgv16.0-32.0The [facility] Comment on above:Performed By: #### BMP #### [facility] [address] [place] [address] Dr. Shabnam RaeCreatinine [Mass/Vol]1.25 mg/dLNormal0.70-1.30The [facility] HospitalComment on above:Performed By: #### BMP #### [facility] [address] [place] [address] Dr. Shabnam SamGFR-AF SOUTH AFRICAN>60Normal>=60The [facility] HospitalComment on above:Performed By: #### BMP #### [facility] [address] [place] [address] Dr. Shabnam SamGFR-NON AF SOUTH AFRICAN>60Normal>=60The [facility] HospitalComment on above:Performed By: #### BMP #### [facility] [address] [place] [address] Dr. Shabnam RaeGlucose [Mass/Vol]132 mg/dLCritically uuqf95-332Xmv [facility] HospitalComment on above:Performed By: #### BMP #### [facility] [address] [place] [address] Dr. Shabnam RaePotassium [Moles/Vol]3.2 mmol/LCritically low3.5-5.1The [facility] HospitalComment on above:Performed By: #### BMP #### [facility] [address] [place] [address] Dr. Shabnam RaeSodium [Moles/Vol]139 mmol/AYaiymc522-360Eom [facility] Comment on above:Performed By: #### BMP #### [facility] [address] [place] [address] Dr. Shabnam RaeUrea nitrogen [Mass/Vol]19.0 mg/dLCritically high7.0-18.0The [facility] HospitalComment on above:Performed By: #### BMP #### [facility] [address] [place] [address] Dr. Shabnam RaeUrea nitrogen/Creatinine [Mass ratio]15.2 mg/mgNormalThe [facility] HospitalComment on above:Performed By: #### BMP #### [facility] [address] [place] [address] Dr. Shabnam RaeCERVICAL SPINE 2 OR 3 [facility] [id number] SPINE [address] [facility] Department of Radiology [address] [place] [id number] Patient Name: MATTY GARCES : 1970 Sex: M Age: Race: White Pt. Location: 85 Patient Status: O Ordered Date: 07/06/2019 9:10:00 AM Completed Date: 07/06/2019 09:21 AM Requesting Provider: LUCIANO DAVIS Attending Provider: LUCIANO DAVIS Report Copy To: VENUS JAEGER Signs & Symptoms: M48.02 Spinal stenosis, cervical region I10 History: [place] Comments: , STAT READ , STAT READ [...] findings. Electronically signed by:Bernice Hoyt. Transcribed by: [email or web address], User Resident: RADHA CHIN Electronically Signed by: BERNICE HOYT @ 07/06/2019 08:52 PM I personally read this/these film(s) with this residentMercy HospitalComment on above:Order Comment: , STAT READ , STAT READ , , , Ordering Provider - LUCIANO DAVIS MD , CERVICAL SPINE 2 OR 3 [facility] [id number] SPINE 2 [facility] 3 [facility] [address] [place] [id number] Patient Name: MATTY GARCES : 1970 [...] FALLS Exam: CERVICAL SPINE 2 OR 3 [facility] CERVICAL SPINE 2 OR 3 [facility] 04/06/2019 7:28 AM EDT SIGNS [...] study. Electronically signed by:Bernice Hoyt. Transcribed by: [email or web address], User Resident: Electronically Signed by: BERNICE HOYT @ 04/06/2019 04:40 [facility] ToledoComment on above:Order Comment: AP/LAT, ODONTOID PLEASE DO SWIMMER'S VIEW FOLLOW UP HARDWARE AND ALIGNMENT, S/P ACDF, RECENT FALLSCERVICAL SPINE 2 OR 3 [facility] [id number] SPINE [address] [facility] Department of Radiology [address] [place] [id number] Patient Name: MATTY GARCES : 1970 [...] findings. Electronically signed by:Bella King. Transcribed by: [email or web address], User Resident: KENNETH DUVAL Electronically Signed by: BELLA KING @ 02/20/2019 11:53 AM I personally read this/these film(s) with this residentMercy HospitalComment on above:Order Comment: C-SPINE 2 OR 3 VIEW POSTOP, EVALUATION HARDWARE AN ALIGNMENTBASIC METABOLIC PANELon [id number] [Mass/Vol]9.2 mg/dLNormal8.6-10.3The [facility] HospitalComment on above:Order Comment: No: Do not add to previous drawPerformed By: #### [id number] #### [facility] [address] [place] [address], USAChloride [Moles/Vol]101 mmol/QEdgrph95-587Lph [facility] HospitalComment on above:Order Comment: No: Do not add to previous drawPerformed By: #### [id number] #### [facility] [address] [place] [address], [place]ACO2 [Moles/Vol]26 mmol/EKgbkzt43-49Edu [facility] HospitalComment on above:Order Comment: No: Do not add to previous draw Performed By: #### [id number] #### [facility] [address] [place] [address], USACreatinine [Mass/Vol]1.02 mg/dLNormal0.70-1.30The [facility] HospitalComment on above:Order Comment: No: Do not add to previous drawPerformed By: #### [id number] #### [facility] [address] [place] [address], USAGFR/1.73 sq M predicted among blacks MDRD (S/P/Bld) [Vol rate/Area]mL/min/{1.73_m2}Normal>60The [facility] Comment on above:Order Comment: No: Do not add to previous drawPerformed By: #### [id number] #### [facility] [address] [place] [address], USAGFR/1.73 sq M predicted among non-blacks MDRD (S/P/Bld) [Vol rate/Area]mL/min/{1.73_m2}Normal>60The [facility] Comment on above:Order Comment: No: Do not add to previous drawPerformed By: #### [id number] #### [facility] [address] [place] [address], USAGlucose [Mass/Vol]124 mg/kJRjqr05-845Qmp [facility] HospitalComment on above:Order Comment: No: Do not add to previous drawPerformed By: #### [id number] #### [facility] [address] [place] [address], USAPotassium [Moles/Vol]3.9 mmol/LNormal3.5-5.1The [facility] HospitalComment on above:Order Comment: No: Do not add to previous drawPerformed By: #### [id number] #### [facility] [address] [place] [address], USASodium [Moles/Vol]137 mmol/YDwtkts333-148Yij [facility] HospitalComment on above:Order Comment: No: Do not add to previous drawPerformed By: #### [id number] #### [facility] [address] [place] [address], USAUrea nitrogen [Mass/Vol]15 mg/dLNormal7-25The [facility] HospitalComment on above:Order Comment: No: Do not add to previous drawPerformed By: #### [id number] #### [facility] [address] [place] [address], USACBC COMPLETE BLOOD COUNTon [id number] distribution width (RBC) [Ratio]13.9 %Zjgoft09.5-15.0The [facility] HospitalComment on above:Order Comment: No: Do not add to previous draw Performed By: #### [id number] #### [facility] [address] [place] [address], USAHematocrit (Bld) [Volume fraction]50.0 %Qtcdbz88.0-50.0The [facility] HospitalComment on above:Order Comment: No: Do not add to previous drawPerformed By: #### [id number] #### [facility] [address] [place] [address], USAHemoglobin (Bld) [Mass/Vol]16.0 g/rDAxzaxy96.0-17.0The [facility] HospitalComment on above:Order Comment: No: Do not add to previous drawPerformed By: #### [id number] #### [facility] [address] [place] [address], MESCALERO SERVICE UNITMCH (RBC) [Entitic mass]27.5 juPmdjqb06.0-33.0The [facility] HospitalComment on above:Order Comment: No: Do not add to previous drawPerformed By: #### [id number] #### [facility] [address] [place] [address], MESCALERO SERVICE UNITMCHC (RBC) [Mass/Vol]32.0 g/uXTlyrae68.0-35.0The [facility] HospitalComment on above:Order Comment: No: Do not add to previous drawPerformed By: #### [id number] #### [facility] [address] [place] [address], M[facility]CAL[facility] SERVICE UNITMCV (RBC) [Entitic vol]85.9 uKFjhawt65.0-98.0The [facility] HospitalComment on above:Order Comment: No: Do not add to previous drawPerformed By: #### [id number] #### [facility] [address] [place] [address], USANucleated RBC/100 WBC (Bld) [Ratio]0 %Normal0-0The [facility] HospitalComment on above:Order Comment: No: Do not add to previous drawPerformed By: #### [id number] #### [facility] [address] [place] [address], USAPLAT [id number] 10*3/aAZzfjhj834-887Hjt [facility]othe HospitalComment on above:Order Comment: No: Do not add to previous draw Performed By: #### 98167 #### [facility] [address] [place] [address], USARBC (Bld) [#/Vol]5.82 10*6/uLHigh4.20-5.70The [facility]icothe HospitalComment on above:Order Comment: No: Do not add to previous drawPerformed By: #### 23005 #### [facility] [address] [place] [address], USAWBC (Bld) [#/Vol]15.85 10*3/uLHigh4.00-10.60The [facility]icothe HospitalComment on above:Order Comment: No: Do not add to previous drawPerformed By: #### 22405 #### [facility] [address] [place] [address], [facility] SERVICE UNITOperative Reporton [id number] ReportMR#: [id number] I [facility] Pt. Name: Matty Garces Room #: [id number] Discharge Date: Birthdate: 1970 OPERATIVE REPORT DATE OF SURGERY: 01/30/2019 SURGEON: Luciano Davis M.D. 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 POSTOPERATIVE DIAGNOSIS: Failed instrumentation at C6-7 on the right. POWDER BLENDER AND POURER: ADENIKE Lugo. ANESTHESIA: Endotracheal, Hogan. PROCEDURES: Redo [...] Davis M.D. Date Trans: 01/31/2019 02:31 Eze/sasha DN_JN:[id number] cc: Venus Jaeger M.D. [address] [place] [address]NgrmdoJupMercy HospitalCERVICAL SPINE 2 OR 3 Son [id number] SPINE 2 OR 3 [facility] Department of Radiology [address] [place] [id number] Patient Name: MATTY GARCES : 1970 [...] documentation Electronically signed by:Justus Murphy. Transcribed by: [id number], User Resident: Electronically Signed by: JUSTUS MURPHY @ 01/30/2019 04:18 PMNormalThe Chillicothe HospitalComment on above:Order Comment: C6-7 ACDFPOC GLUCOSE LABon 56-43-1441Mouolor [Mass/Vol]106 mg/jFYlvh79-486Inp [facility] HospitalComment on above:Performed By: #### 90633 #### [facility] [address] [facility] [place] [address], [facility]*MRSA/MSSA DNA NASALon 01-23-2019*MRSA/MSSA DNA NASAL Clinical Report: (D) Specimen: NASAL SWAB Collected: 01/23/2019 15:02 Status: Final Last Updated: 01/23/2019 20:14 MSSA DNA (Final) Methicillin Susceptible Staphylococcus aureus DNA Detected MRSA DNA (Final) No Methicillin Resistant Staphylococcus aureus DNA DetectedNoCleveland Clinic Avon HospitalComment on above:Performed By: #### 08051 #### [facility] [address] [facility] [place] [address], M[facility]ERO SERVICE UNITAPTTon 52-82-6064xOAH Coag (Bld) [Time]35.4 sHigh25.0-35.0 The [facility]icothe HospitalComment on above:Result Comment: ALL RESULTS MUST [...] BE USED FOR THIS PURPOSE.Performed By: #### 64716, 43247 #### [facility] [address] [facility] [place] [address], USABASIC METABOLIC PANELon 51-30-4982Bujjhnl [Mass/Vol]9.5 mg/dLNormal8.6-10.3The [facility] HospitalComment on above: Performed By: #### 97355, 97398 #### [facility] [address] [facility] [place] [address], USAChloride [Moles/Vol]101 mmol/ZQxvcjz30-192Unu [facility] HospitalComment on above:Performed By: #### 57312, 61972 #### [facility] [address] [place] [address], USACO2 [Moles/Vol]29 mmol/CYhqbqf63-52Hkc [facility] HospitalComment on above:Performed By: #### 55726, 73285 #### [facility] [address] [place] [address], USACreatinine [Mass/Vol]1.08 mg/dLNormal0.70-1.30The [facility] HospitalComment on above:Performed By: #### 52285, 08714 #### [facility] [address] [place] [address], USAGFR/1.73 sq M predicted among blacks MDRD (S/P/Bld) [Vol rate/Area]mL/min/{1.73_m2}Normal>60The [facility] Comment on above:Performed By: #### 41239, 95511 #### [facility] [address] [place] [address], USAGFR/1.73 sq M predicted among non-blacks MDRD (S/P/Bld) [Vol rate/Area]mL/min/{1.73_m2}Normal>60The [facility] Comment on above:Performed By: #### 72254, 70886 #### [facility] [address] [place] [address], USAGlucose [Mass/Vol]87 mg/lPUhgecv57-726Vgg [facility] HospitalComment on above:Performed By: #### 17492, 63229 #### [facility] [address] [place] [address], USAPotassium [Moles/Vol]4.0 mmol/LNormal3.5-5.1The [facility] HospitalComment on above:Performed By: #### 70048, 05845 #### [facility] [address] [facility] [place] [address], USASodium [Moles/Vol]137 mmol/TFfgrng892-103Too [facility] HospitalComment on above:Performed By: #### 87086, 29196 #### [facility] [address] [facility] [place] [address], USAUrea nitrogen [Mass/Vol]12 mg/dLNormal7-25The [facility] HospitalComment on above:Performed By: #### 86465, 91296 #### [facility] [address] [facility] [place] [address], [facility]ICE UNITCBC W/DIFFon 43-72-0659NGG BASOPHILS0.1 10*3/uLNormal 0.0-0.2The [facility] HospitalComment on above:Performed By: #### 57237, 67126 #### [facility] [address] [facility] [place] [address], USAABS IMM GRANS0.0 10*3/uLNormal0.0-0.2The [facility] HospitalComment on above:Performed By: #### 18839, 29616 #### [facility] [address] [facility] [place] [address], USAABS NEUTROPHILS5.3 10*3/uLNormal1.6-7.6The [facility] HospitalComment on above:Performed By: #### 12723, 52340 #### [facility] [address] [facility] [place] [address], USABasophils/100 WBC (Bld)0.9 %Normal0.0-1.0The [facility] HospitalComment on above:Performed By: #### 52015, 85537 #### [facility] [address] [facility] [place] [address], USAEosinophils (Bld) [#/Vol]0.2 10*3/uLNormal0.0-0.5The [facility] HospitalComment on above:Performed By: #### 16413, 42742 #### [facility] [address] [place] [address], USAEosinophils/100 WBC (Bld)2.3 %Normal0.0-6.0The [facility] HospitalComment on above:Performed By: #### 11500, 10135 #### [facility] [address] [place] [address], USAErythrocyte distribution width (RBC) [Ratio]13.8 %Normal 11.5-15.0The [facility] HospitalComment on above:Performed By: #### 82183, 32870 #### [facility] [address] [place] [address], USAHematocrit (Bld) [Volume fraction]49.6 %Nlcseu88.0-50.0The [facility] HospitalComment on above:Performed By: #### 37138, 63094 #### [facility] [address] [place] [address], USAHemoglobin (Bld) [Mass/Vol]16.4 g/qNExwyrs78.0-17.0The [facility] HospitalComment on above:Performed By: #### 21128, 92122 #### [facility] [address] [place] [address], USAIMMATURE GRANS0.5 %Normal0.0-1.0The [facility] HospitalComment on above:Performed By: #### 49682, 44806 #### [facility] [address] [place] [address], USALymphocytes (Bld) [#/Vol]1.2 10*3/uLNormal1.2-4.0The [facility] HospitalComment on above:Performed By: #### 66637, 23302 #### [facility] [address] [place] [address], USALymphocytes/100 WBC (Bld)16.6 %Low20.0-45.0The [facility]othe HospitalComment on above:Performed By: #### 66437, 93768 #### [facility] [address] [place] [id number], [facility] CITYH (RBC) [Entitic mass]27.8 uyRdmofp11.0-33.0The [facility] HospitalComment on above:Performed By: #### 09047, 01311 #### [facility] [address] [facility] [place] [address], M[facility]ERO SERVICE UNITMCHC (RBC) [Mass/Vol]33.1 g/cHCyfnsf95.0-35.0The [facility] HospitalComment on above:Performed By: #### 05771, 96864 #### [facility] [address] [facility] [place] [address], [facility]ERO SERVICE UNITMCV (RBC) [Entitic vol]84.2 wKNssejm39.0-98.0The [facility] HospitalComment on above:Performed By: #### 24247, 52215 #### [facility] [address] [facility] [place] [address], USAMonocytes (Bld) [#/Vol]0.7 10*3/uLNormal0.1-1.0The [facility] HospitalComment on above:Performed By: #### 94317, 97036 #### [facility] [address] [facility] [place] [address], USAMONOS9.4 %Normal5.0-12.0The [facility] HospitalComment on above:Performed By: #### 22793, 62714 #### [facility] [address] [facility] [place] [address], USANeutrophils/100 WBC (Bld)70.3 %Fecidx57.0-72.0The [facility] HospitalComment on above:Performed By: #### 16341, 48391 #### [facility] [address] [place] [address], USANucleated RBC/100 WBC (Bld) [Ratio]0 %Normal0-0The [facility] HospitalComment on above:Performed By: #### 95410, 00702 #### [facility] [address] [address], USAPLAT CLW917 10*3/bRYziigm793-491Qug [facility] HospitalComment on above:Performed By: #### 71715, 12351 #### [facility] [address] [facility] [place] [address], USARBC (Bld) [#/Vol]5.89 10*6/uLHigh4.20-5.70The [facility] HospitalComment on above:Performed By: #### 71951, 73903 #### [facility] [address] [facility] [place] [address], USAWBC (Bld) [#/Vol]7.48 10*3/uLNormal4.00-10.60The [facility] HospitalComment on above:Performed By: #### 35084, 42393 #### [facility] [address] [facility] [address], USAPROTHROMBIN TIMEon [id number] Coag (PPP) [Relative time] 1.12 {INR}Normal0.91-1.16The [facility]icothe HospitalComment on above:Result Comment: ACCCP RECOMMENDED INR [...] OPTIMAL THERAPEUTIC RANGE. CHEST 1995;108:231S-246S.Performed By: #### 03553, 05704 #### [facility] [address] [place] [address], USAPT Coag (PPP) [Time]14.4 iXxcewg90.3-14.8The [facility] HospitalComment on above:Result Comment: ALL RESULTS MUST BE INTERPRETED WITH RESPECT TO BLOOD DRAWING ARTIFACT OR DILUTION ERROR OF ANTICOAGULANT AT THE TIME OF SAMPLING.Performed By: #### 91953, 69994 #### [facility] [address] [facility] [place] [address], USATYPE AND SCREENon [id number] INTERPRETATIONANoCleveland Clinic Avon HospitalComment on above:Performed By: #### 50130, 66354 #### [facility] [address] [facility] [place] [address], USARH INTERPRETATIONPositiveNoCleveland Clinic Avon HospitalComment on above:Performed By: #### 16014, 72619 #### [facility] [address] [facility] [place] [place] [address], USACT 3D CERVICAL SPINE WO CONTRASTon 56-76-7609HF 3D CERVICAL SPINE WO CONTRASTUnAvita Health System Galion Hospital Department of Radiology [address] [place] [address] Patient Name: MATTY GARCES : 1970 Sex: M Age: Race: White Pt. Location: 85 Patient Status: D Ordered Date: 01/10/2019 2:15:00 PM Completed Date: 01/12/2019 10:32 AM Requesting Provider: LUCIANO DAVIS Attending Provider: LUCIANO DAVIS Report Copy To: VENUS JAEGER Signs & Symptoms: M48.02 Spinal stenosis, cervical region I10 History: [place] para auth # [id number] 01/10/19-02/09/19 12355 *er Comments: Exam: CT 3D CERVICAL SPINE [...] incomplete Electronically signed by:Ten Uriarte. Transcribed by: [email or web address], User Resident: Electronically Signed by: TEN URIARTE @ 01/13/2019 09:18 [facility] HospitalCERVICAL SPINE 2 OR 3 [facility] 01-05-2019 CERVICAL SPINE 2 OR 3 SUniWhite Hospital Department of Radiology [address] [place] [phone] Patient Name: MATTY GARCES : 1970 Sex: M Age: Race: White Pt. Location: Patient Status: O Ordered Date: 01/05/2019 9:00:00 AM Completed Date: 01/05/2019 09:06 AM Requesting Provider: LUCIANO DAVIS Attending Provider: LUCIANO DAVIS Report Copy To: Signs & Symptoms: M48.02 Spinal stenosis, cervical region I10 History: [place] Comments: , , , Ordering Provider - LUCIANO DAVIS MD , Exam: CERVICAL SPINE 2 OR 3 [facility] CERVICAL SPINE 2 OR 3 VWS [...] findings. Electronically signed by:Ten Uriarte. Transcribed by: [email or web address], User Resident: SHELLY DELA CRUZ Electronically Signed by: TEN URIARTE @ 01/05/2019 12:37 PM I personally read this/these film(s) with this residentMercy HospitalComment on above:Order Comment: , , , Ordering Provider - LUCIANO DAVIS MD , CERVICAL SPINE 2 OR 3 [facility] [id number] SPINE 2 OR 3 SUniWhite [facility] Department of Radiology [address] [place] [phone] Patient Name: MATTY GARCES : 1970 Sex: M Age: Race: White Pt. Location: 85 Patient Status: O Ordered Date: 08/30/2018 9:35:00 AM Completed Date: 08/30/2018 09:43 AM Requesting Provider: LUCIANO DAVIS Attending Provider: LUCIANO DAVIS Report Copy To: VENUS JAEGER Signs & Symptoms: M50.90 Cervical disc disorder, unsp, unspecified cervical region I10 History: [place] Comments: , POST OP XRAY AP/LAT ONLY [...] findings. Electronically signed by:Bella King. Transcribed by: [email or web address], User Resident: RYAN ANDERSON Electronically Signed by: BELLA KING @ 08/30/2018 05:45 PM I personally read this/these film(s) with this residentMercy HospitalComment on above:Order Comment: , POST OP XRAY AP/LAT ONLY , POST OP XRAY AP/LAT ONLY , , , Ordering Provider - LUCIANO DAVIS MD , Operative Reporton [id number] ReportMR#: [id number] I [facility] Pt. Name: Matty Garces Room #: [id number] Discharge Date: Birthdate: 1970 OPERATIVE REPORT DATE OF SURGERY: 08/17/2018 SURGEON: Luciano Davis M.D. PREOPERATIVE DIAGNOSIS: Herniated cervical disk at C6-7. POSTOPERATIVE DIAGNOSIS: Herniated cervical disk at C6-7. POWDER BLENDER AND POURER: ADENIKE Larios. ANESTHESIA: Endotracheal, Braida. PROCEDURE: Anterior [...] Davis M.D. Date Trans: 08/17/2018 11:25 P/sasha DN_JN:[id number] cc: Venus Jaeger M.D. [address] [place] [address]YkdgipWshMercy HospitalCERVICAL SPINE 2 OR 3 VWSon [id number] SPINE 2 OR 3 [facility]OREniWhite [facility] Department of Radiology [address] [place] [address] Patient Name: MATTY GARCES : [...] findings. Electronically signed by:Bernice Hoyt. Transcribed by: [id number], User Resident: KENNETH DUVAL Electronically Signed by: BERNICE HOYT @ 08/18/2018 01:06 PM I personally read this/these film(s) with this [facility] Hospital DaytonComment on above:Order Comment: C6-7 ACDF with POC GLUCOSE LABon 41-39-0176Pxaohrs [Mass/Vol]113 mg/cMYdqp04-710NbkBrecksville VA / Crille HospitalComment on above:Performed By: #### 96071 #### [facility] [address] [place] [address], USARBC'S 2 UNITSon 08-48-0720NKZOXUDCYZ INTERP 1CMercy Health St. Anne HospitalComment on above:Performed By: #### 93879 #### [facility] [address] [place] [address], USACROSSMATCH INTERP 2CMercy Health St. Anne HospitalComment on above:Performed By: #### 95338 #### [facility] [address] [place] [address], USAPRODUCT CODE [id number] HospitalComment on above:Performed By: #### 16627 #### [facility] [address] [place] [address], USAPRODUCT CODE [id number] HospitalComment on above:Performed By: #### 49342 #### [facility] [address] [place] [address], USAPRODUCT STATUS 1RKettering Health Washington TownshipComment on above:Result Comment: Result changed by IF on 08/20/2018 07:48. The previous value was XM.Performed By: #### 66900 #### [facility] [address] [place] [address], USAPRODUCT STATUS 2RKettering Health Washington TownshipComment on above:Result Comment: Result changed by IF on 08/20/2018 07:48. The previous value was XM.Performed By: #### 14696 #### [facility] [address] [place] [address], USAUNIT ABO 1AMercy Hospital Comment on above:Performed By: #### 32462 #### [facility] [address] [place] [address], USAUNIT ABO 2AMercy Hospital Comment on above:Performed By: #### 53801 #### [facility] [address] [place] [address], USAUNIT ID [id number] VA / Crille HospitalComment on above:Performed By: #### 76000 #### [facility] [address] [place] [address], USAUNIT ID [id number] HospitalComment on above:Performed By: #### 32782 #### [facility] [address] [place] [address], USAUNIT RH 1PosiWood County HospitalComment on above:Performed By: #### 21587 #### [facility] [address] [place] [address], USAUNIT RH 2PositiveMercy HospitalComment on above:Performed By: #### 53831 #### [facility] [address] [place] [address], [place]*MRSA/MSSA CULTUREon 08-02-2018*MRSA/MSSA CULTUREClinical Report: (D) Specimen: NASAL SWAB Collected: 08/02/2018 12:37 Status: Final Last Updated: 08/03/2018 14:26 ISO (Final) No Methicillin Resistant Staphylococcus aureus Isolated (MRSA) ISO (Final) Methicillin Sensitive Staphylococcus aureus (MSSA) IsolatedNoCleveland Clinic Avon HospitalComment on above:Performed By: #### 27162 #### [facility] [address] [facility] [place] [place] [address], [facility] SERVICE UNITAPTTon 53-18-5905lGAU Coag (Bld) [Time]31.2 sNormal 25.0-35.0The [facility] HospitalComment on above:Result Comment: ALL RESULTS MUST [...] BE USED FOR THIS PURPOSE.Performed By: #### 07860, 48772 #### [facility] [address] [facility] [place] [address], [facility] SERVICE UNITBASIC METABOLIC PANELon 35-04-5632Kvvcesf [Mass/Vol]9.4 mg/dLNormal8.6-10.3The [facility] HospitalComment on above: Performed By: #### 02536 #### [facility] [address] [facility] [place] [address], USAChloride [Moles/Vol]103 mmol/CTtaaiz41-094Trk [facility] HospitalComment on above:Performed By: #### 09146 #### [facility] [address] [facility] [place] [address], USACO2 [Moles/Vol]29 mmol/MNuwnut15-31Brr [facility] HospitalComment on above:Performed By: #### 49325 #### [facility] [address] [place] [address], USACreatinine [Mass/Vol]1.06 mg/dLNormal0.70-1.30The [facility] HospitalComment on above:Performed By: #### 49240 #### [facility] [address] [place] [address], USAGFR/1.73 sq M predicted among blacks MDRD (S/P/Bld) [Vol rate/Area]mL/min/{1.73_m2}Normal>60The [facility] Comment on above:Performed By: #### 22282 #### [facility] [address] [place] [address], USAGFR/1.73 sq M predicted among non-blacks MDRD (S/P/Bld) [Vol rate/Area]mL/min/{1.73_m2}Normal>60The [facility] Comment on above:Performed By: #### 41322 #### [facility] [address] [place] [address], USAGlucose [Mass/Vol]84 mg/dPNuswxw22-870Sqf [facility] HospitalComment on above:Performed By: #### 47238 #### [facility] [address] [place] [address], USAPotassium [Moles/Vol]4.0 mmol/LNormal3.5-5.1The [facility] HospitalComment on above:Performed By: #### 92832 #### [facility] [address] [place] [address], USASodium [Moles/Vol]140 mmol/GLuvcyy624-631Jym [facility] HospitalComment on above:Performed By: #### 61554 #### [facility] [address] [place] [address], USAUrea nitrogen [Mass/Vol]20 mg/dLNormal7-25The [facility] HospitalComment on above:Performed By: #### 36014 #### [facility] [address] [facility] [place] [address], [facility]ICE UNITCBC W/DIFFon [id number] BASOPHILS0.1 10*3/uLNormal 0.0-0.2The [facility] HospitalComment on above:Performed By: #### 01663 #### [facility] [address] [facility] [place] [address], USAABS IMM GRANS0.1 10*3/uLNormal0.0-0.2The [facility] HospitalComment on above:Performed By: #### 95111 #### [facility] [address] [facility] [place] [address], M[facility]CALERO SERVICE UNITABS NEUTROPHILS4.2 10*3/uLNormal1.6-7.6The [facility] HospitalComment on above:Performed By: #### 79655 #### [facility] [address] [facility] [place] [address], M[facility]CALERO SERVICE UNITBasophils/100 WBC (Bld)1.3 %High0.0-1.0The [facility] HospitalComment on above:Performed By: #### 28896 #### [facility] [address] [facility] [place] [place] [address], MESCALERO SERVICE UNITEosinophils (Bld) [#/Vol]0.1 10*3/uLNormal0.0-0.5The [facility] HospitalComment on above:Performed By: #### 13386 #### [facility] [address] [facility] [place] [place] [address], USAEosinophils/100 WBC (Bld)2.0 %Normal0.0-6.0The [facility]illic[facility] HospitalComment on above:Performed By: #### [id number] #### [facility] [address] [facility] [place] [address], USAErythrocyte distribution width (RBC) [Ratio]13.6 %Normal 11.5-15.0The [facility]ic[facility] HospitalComment on above:Performed By: #### [id number] #### [facility] [address] [place] [address], USAHematocrit (Bld) [Volume fraction]44.3 %Hvwokg53.0-50.0The [facility] HospitalComment on above:Performed By: #### [id number] #### [facility] [address] [place] [address], USAHemoglobin (Bld) [Mass/Vol]15.1 g/nHTzbspg77.0-17.0The [facility] HospitalComment on above:Performed By: #### [id number] #### [facility] [address] [place] [address], USAIMMATURE GRANS1.1 %High0.0-1.0The [facility] HospitalComment on above:Performed By: #### [id number] #### [facility] [address] [place] [address], USALymphocytes (Bld) [#/Vol]1.2 10*3/uLNormal1.2-4.0The [facility] HospitalComment on above:Performed By: #### [id number] #### [facility] [address] [place] [address], USALymphocytes/100 WBC (Bld)18.3 %Low20.0-45.0The [facility] HospitalComment on above:Performed By: #### [id number] #### [facility] [address] [place] [address], USAMCH (RBC) [Entitic mass]29.0 qpWtlznx55.0-33.0The [facility]ic[facility] HospitalComment on above:Performed By: #### [id number] #### [facility] [address] [place] [address], USAMCHC (RBC) [Mass/Vol]34.1 g/eQCebxpn29.0-35.0The [place]othe HospitalComment on above:Performed By: #### [id number] #### [facility] [address] [place] [address], USAMCV (RBC) [Entitic vol]85.0 fGFygsqt65.0-98.0The [place] HospitalComment on above:Performed By: #### [id number] #### [facility] [address] [place] [address], USAMonocytes (Bld) [#/Vol]0.7 10*3/uLNormal0.1-1.0The [facility]icothe HospitalComment on above:Performed By: #### [id number] #### [facility] [address] [place] [address], ZTPNZLGM13.1 %Normal5.0-12.0The [facility]icothe HospitalComment on above:Performed By: #### 55691 #### [facility] [address] [place] [address], USANeutrophils/100 WBC (Bld)66.2 %Tdbsmy32.0-72.0The [facility]othe HospitalComment on above:Performed By: #### [id number] #### [facility] [address] [place] [address], USANucleated RBC/100 WBC (Bld) [Ratio]0 %Normal0-0The [facility] HospitalComment on above:Performed By: #### [id number] #### [facility] [address] [place] [address], USAPLAT XDE474 10*3/fEMfnhrg193-540Xyw [facility] HospitalComment on above:Performed By: #### [id number] #### [facility] [address] [place] [address], USARBC (Bld) [#/Vol]5.21 10*6/uLNormal4.20-5.70The [facility] [place] Medical CenterComment on above:Performed By: #### [id number] #### [address] [address], MESCALERO SERVICE UNITWBC (Bld) [#/Vol]6.39 10*3/uLNormal4.00-10.60The [facility] HospitalComment on above:Performed By: #### 72331 #### [facility] [address] [place] [address], USACERVICAL SPINE 4 OR 5 VIEWSon 19-84-8401LABLCOTD SPINE 4 OR 5 VIEWSUnAvita Health System [facility] Department of Radiology [address] [place] [id number] Patient Name: MATTY GARCES : 1970 Sex: M Age: Race: White Pt. Location: Patient Status: D Ordered Date: 08/02/2018 1:05:00 PM Completed Date: 08/02/2018 01:29 PM Requesting Provider: LUCIANO DAVIS Attending Provider: LUCIANO DAVIS Report Copy To: VENUS JAEGER Signs & Symptoms: Z01.89 Encounter for other specified special examinations I10 History: [place] Comments: , PREOP XRAY AP/LAT \EANDE\ FLEX/EX [...] findings. Electronically signed by:Bella King. Transcribed by: [email or web address], User Resident: KENNETH DUVAL Electronically Signed by: BELLA KING @ 08/03/2018 11:58 AM I personally read this/these film(s) with this residentNoCleveland Clinic Avon HospitalComment on above:Order Comment: , PREOP XRAY AP/LAT \EANDE\ FLEX/EX , PREOP XRAY AP/LAT \EANDE\ FLEX/EX , , , Ordering Provider - LUCIANO DAVIS MD , PROTHROMBIN TIMEon 06-34-8616IHX Coag (PPP) [Relative time]1.15 {INR}Normal0.91-1.16The [facility] Comment on above:Result Comment: ACCCP RECOMMENDED [...] OPTIMAL THERAPEUTIC RANGE. CHEST 1995;108:231S-246S.Performed By: #### [id number], [id number] #### [facility] [address] [facility] [place] [place] [address], M[facility]CALERO SERVICE UNITPT Coag (PPP) [Time]14.7 aHflrwr26.3-14.8The [facility] HospitalComment on above:Result Comment: ALL RESULTS MUST BE INTERPRETED WITH RESPECT TO BLOOD DRAWING ARTIFACT OR DILUTION ERROR OF ANTICOAGULANT AT THE TIME OF SAMPLING.Performed By: #### [id number], 12763 #### [facility] [address] [facility] [place] [address], [facility]ERO SERVICE UNITTYPE AND SCREENon 38-14-6210LAM INTERPRETATIONANoCleveland Clinic Avon HospitalComment on above:Order Comment: 2 units 2 units 2 units 2 units 2 unitsPerformed By: #### [id number] #### [facility] [address] [facility] [place] [address], USARH INTERPRETATIONPositiveNoCleveland Clinic Avon HospitalComment on above:Order Comment: 2 units 2 units 2 units 2 units 2 unitsPerformed By: #### [id number] #### [facility] [address] [facility] [place] [address], USAURINALYSIS REFLEXon 90-74-1935Pdsjuudtxb (U)CLEARNormal CLEARThe Chillicothe HospitalComment on above:Performed By: #### [id number] #### [facility] [address] [place] [address], USABilirubin [Mass/Vol]NegativeNormalNEGATIVEThe Chillicothe HospitalComment on above:Performed By: #### 01226 #### [facility] [address] [place] [address], USABLOODNegativeNormalNEGATIVEThe Chillicothe HospitalComment on above:Performed By: #### [id number] #### [facility] [address] [place] [address], USAColor (U)YELLOWNormalYELLOWThe Chillicothe HospitalComment on above:Performed By: #### 55560 #### [facility] [address] [place] [address], USAGlucose [Mass/Vol]150 mg/dLAbnormalNEGATIVEThe Chillicothe HospitalComment on above:Performed By: #### 59898 #### [facility] [address] [place] [address], USAKETONENegativeNormalNEGATIVEThe Chillicothe HospitalComment on above:Performed By: #### 67359 #### [facility] [address] [place] [address], USALEUK ESTERNegativeNormalNEGATIVEThe Chillicothe HospitalComment on above:Performed By: #### 91099 #### [facility] [address] [place] [address], USAMICRO NOT DONEnegative chemical reactions unless requested in original orderNormalThe Chillicothe HospitalComment on above: Performed By: #### 65003 #### [facility] [address] [place] [address], USANitrite Ql (U)NegativeNormalNEGATIVEThe Chillicothe HospitalComment on above:Performed By: #### 82125 #### [facility] [address] [place] [address], M[facility]CALERO SERVICE UNITpH (Bld)5.0Ngvkjg7.0-8.0The [facility] HospitalComment on above:Performed By: #### 86651 #### [facility] [address] [place] [address], [facility] SERVICE UNITProtein (U) [Mass/Vol]NegativeNormalNEGATIVEThe Chillicothe HospitalComment on above:Performed By: #### 41069 #### [facility] [address] [place] [address], USASPEC GRAV1.672Tphe7.015-1.020The [facility]ic[place] HospitalComment on above:Performed By: #### 51023 #### [facility] [address] [place] [address], [facility] Vital Signs Date TimeVital SignValuePerforming KehnbcpfgHfxlaaxl31-46-6172 15:09-0400Body cmJafortino Rainey FUNERAL GREETER Work Phone: [facility] HospitalBmmlxeawiv65-75-9364 15:09-0400Body mass index (BMI) [Ratio]34.92 kg/u2ThmdrzioelHeather Rainey FUNERAL GREETER Work Phone: [facility] HospitalGcxvbpxwkj06-38-1061 15:09-0400Body tybcro341.38 kgJafortino Rainey FUNERAL GREETER Work Phone: [facility] HospitalQtmsvgtflj49-91-3240 15:09-0400Diastolic blood baetravm39 mm[Hg]Heather Rainey FUNERAL GREETER Work Phone: [facility] HospitalYyztfcygmh86-25-4200 15:09-0400Systolic blood uddsncov854 mm[Hg]Heather Rainey FUNERAL GREETER Work Phone: [facility] HospitalAuysbbldyh77-32-4297 11:03-0400Body zfmwwe067 cm Rubén Geiger MD Work Phone: [facility] HospitalMjtztudapp59-87-5947 11:03-0400Body mass index (BMI) [Ratio]34.02 kg/j7OxviwbnRubén Geiger MD Work Phone: [phone] HospitalMjqpoyekva53-91-1345 11:03-0400Body syckjl625.2 kgRubén Geiger MD Work Phone: [phone] [place], [place] [address]Hgnoidlcza37-23-6451 11:03-0400Diastolic blood pmjkaunj34 mm[Hg]Rubén Geiger MD Work Phone: [phone] [place], [place] [address]Klzneahdfx05-07-0338 11:03-0400Heart lhbt538 /min Rubén Geiger MD Work Phone: 1([phone] [place], [place] [address]Lcfiqjhbec30-43-8340 11:03-0400Systolic blood tgxwutfg164 mm[Hg]Rubén Geiger MD Work Phone: 1([phone] [place], [place] [address]Tdbmviibbi96-44-0208 14:44-0400Body cm Rubén Geiger MD Work Phone: [phone] [place], [place] [address]Scoguxthqs45-95-1706 14:44-0400Body mass index (BMI) [Ratio]35.31 kg/o7VlfljpgRubén Geiger MD Work Phone: [phone] HospitalVmyjejdbxb47-54-8169 14:44-0400Body syoobn650.74 kgRubén Geiger MD Work Phone: [facility] HospitalVqbtxfaxaf37-83-3135 14:45-0400Body cm Rubén Geiger MD Work Phone: [facility] HospitalXynjpkumlb75-51-3366 14:45-0400Body mass index (BMI) [Ratio]37.62 kg/a5LrwucyxRubén Geiger MD Work Phone: [facility] HospitalOwrryupihh14-55-9379 14:45-0400Body .9 kgRubén Geiger MD Work Phone: [facility] HospitalCxuznhfrbt88-24-4368 10:30-0400Blood Pressure LocationKatFirstHealthe [facility] 06-15-2022 10:30-0400Diastolic blood asmblqiz636 mm[Hg] Viola Lue [facility] 06-15-2022 10:30-0400Heart rate74 /minKathy Lue [facility] 06-15-2022 10:30-0400Respiratory rate16 /minKathy Lue [facility] 06-15-2022 10:30-0400Systolic blood amvrvhlp005 mm[Hg] Viola Lue [facility] Encounters Encounter DateEncounter TypeCare ProviderFacilityStart: 07-13-2025 End: 46-17-3003Heabsq outpatient visit 25 minutesHeather Rainey FUNERAL GREETER Work Phone: noms [place] NeurologyComment on above:Excessive daytime sleepiness; Obstructive sleep apneaStart: 07-13-2025 End: 32-31-4139rgptapexrtHPCTBDJGWI M GRAZIANINot AvailableStart: 07-13-2025 End: 78-20-0284Rrhsvy flowsheetHeather Rainey FUNERAL GREETER Work Phone: noms NEUROLOGYStart: 07-13-2025 End: 25-15-4381Ohpiow flowsheetHeather Rainey FUNERAL GREETER Work Phone: noms NEUROLOGYStart: 06-20-2025 End: 47-13-4074nbgxfcedpyKtsmdru M Hoy MD Work Phone: [facility] Work Phone: Start: 06-20-2025 End: 73-08-2840Febjkyqv ReferredRafik Massouh MD-LAB [facility] Start: 05-29-2025 End: 82-92-3882Lornkxq encounter procedureJustnamita Eze Pauly DO-CT Scan [facility] Work Phone: Start: 05-29-2025 End: 49-64-1765tdqejumrmqLcuiwjm M Hoy MD Work Phone: [facility] Work Phone: Start: 05-15-2025 End: 68-92-7993RffdtlLppsjvxamb M Graziani NP Work Phone: noms [place] NeurologyComment on above:Excessive daytime sleepiness; Primary insomniaExcessive daytime sleepiness; Obstructive sleep apneaStart: 05-07-2025 End: 14-76-1115nrxitcnmxwEfmoemq M Hoy MD Work Phone: [facility] Work Phone: Start: 05-07-2025 End: 06-82-8838Rwnstpg encounter procedureJustnamita Eze Pauly DO-[facility] Work Phone: Start: 04-04-2025 End: 81-98-4380Uyuqaxsilviano Geiger MD Work Phone: noms NEUROLOGYStart: 04-04-2025 End: 03-94-7103Owowlgsilviano Geiger MD Work Phone: noms BM NEUROLOGYStart: 04-04-2025 End: 32-33-6686Hwqugv outpatient visit 25 minutesBremuriel Geiger MD Work Phone: noms SWS NEURComment on above:Narcolepsy cataplexy syndrome (HCC) (Primary Dx); Excessive daytime sleepiness; Cervical disc disorder; Intractable chronic migraine with aura with status migrainosusStart: 04-04-2025 End: 05-30-6373dnekuhlragXVKSJCJ W BAUERNot AvailableStart: 03-05-2025 End: 29-90-2200Fnzaxnlhg Result EncounterAmy Boomer PA Work Phone: noms External Department UnsolicitedStart: 03-05-2025 End: 44-08-5808Ptxvfbltj Result EncounterJess HOYOS Work Phone: noms External Department UnsolicitedStart: 01-03-2025 End: 41-52-3230Fwytpy outpatient visit 25 minutesRubén Geiger MD Work Phone: noms SWS NEURComment on above:Primary narcolepsy with cataplexy (CMS/HCC) (Primary Dx); Excessive daytime sleepiness; Obstructive sleep apneaStart: 01-03-2025 End: 45-88-0563dpbdscwtguJQRIISI W BAUERNot AvailableStart: 01-03-2025 End: 46-43-9144Gtoqsacaesar Geiger MD Work Phone: noms NEUROLOGYStart: 01-03-2025 End: 10-32-9328Owklvxcaesar Geiger MD Work Phone: noms BM NEUROLOGYStart: 12-11-2024 End: 74-72-4428zlyjszxvvgRYDXIGN W BAUERNot AvailableStart: 12-11-2024 End: 84-86-0783Gemhim outpatient visit 25 minutesRubén Geiger MD Work Phone: noms SWS NEURComment on above:Cubital tunnel syndrome on right (Primary Dx); Cervical paraspinal muscle spasm; Degeneration of intervertebral disc of lumbosacral region with discogenic back pain and lower extremity pain; Narcolepsy cataplexy syndrome (CMS/HCC)Start: 11-14-2024 End: 79-02-6084Epbpaigqq Jeff Mason EEG. T. Other Phone: noms SWS NEURStart: 10-12-2024 End: 24-41-1704Efwehjtpz encounterHeather Rainey NP Work Phone: noms [facility] NEURO 210Start: 51-35-0865Dllingoxzu and management of inpatientCHRISTOPHER [facility] Start: 10-08-2024 End: 60-24-3005Rkqyyisrks and management of inpatientJACK [facility] Hospitaltart: 10-02-2024 End: 96-36-6303NqvhwgKlxjkbh Peterson LPNNOMS SV NEURO 210Comment on above: Excessive daytime sleepiness; Obstructive sleep apneaStart: 59-05-4288Quasgygvpn and management of inpatient MARIANNA ROBERTSUniversity Hospitals Cleveland Medical Centertart: 51-41-0374Owcqzqdxvo and management of inpatientBRANTLEY HINDERSUniWhite Hospital Start: 92-85-7857Pwkomtkoia and management of inpatientJAMIE [facility] Hospitaltart: 32-76-6428Yeofjqidhu and management of inpatient SHIN [facility] Hospitaltart: 14-78-9374Iwsdcvbtax and management of inpatientABDUL MUSTAPHAUniMemorial Health Systemtart: 00-49-4500Sgedpejvux and management of inpatientRACHEL Regional Medical Centertart: 64-05-0599Dsfcmawfz department patient visitJAMIE [facility] Hospitaltart: 07-20-4833Mpvqzlnka department patient visitJAMIE [facility] Hospitaltart: 09-23-2024 Emergency department patient visitRACHEL [facility] Medical Centertart: 09-23-2024 End: 73-99-5646Ryhwailnfs and management of inpatientJEFFERY KATKOUniversity Hospitals Cleveland Medical Centertart: 09-21-2024 End: 26-63-9752tqxdeehhjgYrbwc D [facility] Work Phone: Start: 09-21-2024 End: 48-89-1886Lxgtjyur ReferredWellspan [facility] DPM Work Phone: [facility]-LAB Path Spec To[facility] HospStart: 07-04-2024 End: 47-91-0141Asyamqsou encounterRubén Geiger MD Work Phone: noms [facility]H NEURO 210Start: 07-03-2024 End: 84-04-3672Sfrvzy outpatient visit 25 minutesRubén Geiger MD Work Phone: noms SWS NEURComment on above:Excessive daytime sleepiness (Primary Dx); Obstructive sleep apnea; Primary insomnia; Cubital tunnel syndrome on rightStart: 07-03-2024 End: 60-32-6645Yxyjxn Anastasiya Geiger MD Work Phone: noms BM NEUROLOGYStart: 07-03-2024 End: 40-88-2804Fjqwxj Anastasiya Geiger MD Work Phone: noms NEUROLOGYStart: 05-10-2024 End: 26-71-6328BoraiyQiaspnh W Bauer MD Work Phone: noms SWS NEURComment on above:Primary insomniaStart: 01-03-2024 End: 81-64-5841itryldaefvDLT Trey [facility] Work Phone: [facility] Work Phone: Start: 01-03-2024 End: 84-12-8060Gkfonspz ReferredDPM Trey [facility] Work Phone: [facility]-LAB Path Spec [place] HospStart: 11-29-2023 End: 57-81-6987gzddxrjstuTqtdqya Vytautas Giedraitis MDFacility:[facility] Start: 10-18-2023 End: 79-91-9632idpbgfznypTjfibrs Vytautas Giedraitis MDFacility:[facility] Start: 08-30-2023 End: 14-13-5043wlnapvliqnZmksyib Vytautas Giedraitis MDFacility:[facility] [place] Start: 07-12-2023 End: 59-84-9282jnmzhfuingAycluzq Vytautas Giedraitis MDFacility:[facility] Start: 06-14-2023 End: 37-98-2129kyaaodlheoAuxpfqd Vytautas Giedraitis MDFacility:[facility] [place] Start: 12-06-2022 End: 69-25-2559hoixgyuviqOI VENUS HOY .Facility:Z6Xzwbe: 26-82-1664Fsvylzfsy for general adult medical examination without abnormal findingsDR VENUS HOY . [facility] [place] HospitalStart: 12-01-2022 End: 32-51-7037raimyaggwnZR VENUS HOY .Facility:T8Rjpyr: 12-01-2022 End: 20-55-9891Ofnyyphgk for general adult medical examination without abnormal findingsDR VENUS HOY .Facility:D3Gjlmz: 07-10-2022 End: 80-49-9389pcnvjnwdmdOC VENUS HOY .Facility:T6Qqahs: 03-26-2022 End: 34-12-4286wcsgtwyobpRW VENUS HOY .Facility:B5Vuird: 03-13-2022 End: 54-54-1755qwhdaoeabrYW VENUS HOY .Facility:J9Dlwnz: 02-25-2022 End: 29-43-0619Pngvzws encounter procedureViola Grullon [facility] start: 01-04-2022 End: 21-15-9709utjaxrxxveIW VENUS HOY .Facility:I1Lybkr: 01-30-2019 End: 83-07-0211Rvjgbrgplv and management of inpatientPROVIDER UNKNOWN Facility:[facility]tart: 08-17-2018 End: 86-03-1758Hwdvheb encounter procedurePROVIDER UNKNOWNFacility:[facility] Procedures DateProcedureProcedure DetailPerforming ClinicianStart: 81-62-4170TA of lower leg without contrastVenus Jaeger MD Work Phone: Start: 53-35-3653DKD 12-LEADAmy Garry HOYOS Work Phone: Start: 36-70-9744CSG screeningDR VENUS HOY .Comment on above:Performed By: #### PSASC #### [facility] [address] [address] [address] Shabnam RaeStart: 92-61-8888CWWTUN CERV JT W INTBD FUS DEV, ANT APPR A COL, OPENAZEDINE MEDHKOURStart: 39-24-1129VPNSWHL OF INT FIX FROM CERVCAL VERTEBRA, OPEN APPROACHAZEDINE MEDHKOURStart: 67-42-7715Drlagnrr screenPROVIDER UNKNOWN Comment on above:Performed By: #### [id number], [id number] #### [facility] [address] [facility] [place] [address], USAStart: 43-49-5369CNCKWS SPINE CORD SURGERYANTHONY BRAIDA Start: 31-43-3405ZWDPXU SPINE FIXATION DEVICEAZEDINE MEDHKOURStart: 08-17-2018 NECK SPINE FUSE\T\REMOV BEL O4GTCLCZT MEDHKOURStart: 37-74-2867VU BONE ALGRFT STRUCT ADD-ONAZEDINE MEDHKOURStart: 26-58-0860Uwtowqfx screenPROVIDER UNKNOWN Comment on above:Order Comment: 2 units 2 units 2 units 2 units 2 unitsPerformed By: #### [id number] #### [facility] [address] [facility] [place] [place] [address], USAStart: 02-08-1998H/O: vasectomyHistory of vasectomyRubén Geiger MD Work Phone: ColonoscopyKathy Lue Hemorrhoids (disorder)Viola Lue Hernia of abdominal cavity (disorder)Viola Lue TonsillectomyKathy Lue Plan of Treatment DateCare ActivityDetailAuthorStart: 11-05-2025 End: 30-12-1017Wsoqujg encounter /23/2026 1:20 PM EST Office Visit [facility] [address] [place] [address] Rubén Geiger MD [address] [place] [address] NOMClotilde Wiley NeurologyStart: 07-13-2025 End: 77-76-3765Jqdzjqm encounter fuaembgzf65/31/2025 2:40 PM EDT Office Visit [facility] [address] [facility] [address] [place] [address] Heather Rainey, FUNERAL GREETER [address] [place] [address], [place] [id number] ArrivedNOMS [facility] Comment on above:ArrivedStart: 06-27-2025 End: 09-23-8430Rmgkcqt encounter procedureNOMS [facility] NEURStart: 90-06-7494UXSWX-19 Vaccine ( season)COVID-19 Vaccine ( season)NOMS HealthcareStart: 37-05-6357Yptxfqptn vaccinationInfluenza Vaccine (#1)NOMS HealthcareStart: 04-04-2025 End: 65-35-0665Xfbwmjr encounter procedureNOMS SWS NEURComment on above:Arrived Start: 01-03-2025 End: 61-54-4178Bvdsjpd encounter procedureNOMS SWS NEURComment on above:Arrived Start: 10-04-2024 End: 28-43-8495Njvazko encounter yygxtixfu65/22/2025 2:20 PM EST Office Visit [facility] [address] [facility] [address] [place] [address] Rubén Geiger MD [address] [facility] [address], [place] [id number] N[facility] NEURStart: 06-78-0700Lvmlpdlssbt Wound CultureSuperficial Wound CultureNorwalk Memorial Hospitaltart: 07-03-2024 End: 07-16-9702Wegomgt encounter procedureNOMS SWS NEURComment on above:Arrived Start: 42-73-3446Lzfwbwbpc vaccinationInfluenza Vaccine (#1)[facility] Healthcare Start: 51-49-6339Dmqdmwuar B Vaccines (1 of 3 - 19+ 3-dose series)Hepatitis B Vaccines (1 of 3 - 19+ 3-dose series)[facility] HealthcareStart: 1976 DTaP/Tdap/Td Vaccines (1 - Tdap)DTaP/Tdap/Td Vaccines (1 - Tdap)[facility] Healthcare Start: 39-66-3919XRK Vaccines (1 of 1 - Standard series)MMR Vaccines (1 of 1 - Standard series)NOM HealthcareStart: 59-75-8231Hifdhokrh for malignant neoplasm of colonNOMS HealthcareBacteria identified in Unspecified specimen by Aerobe cultureMagruder HospitalCT Lower leg - right W contrast IV Magruder HospitalXR Tibia and Fibula - right 2 ViewsAdventHealth Lake Placid Immunizations Immunization DateImmunizationNotesCare EpjxsaouBlrwuwnj45-50-9154znwemkllc virus vaccine, unspecified formulationJacsaeid Rainey FUNERAL GREETER Work Phone: [facility] HospitalAasvdvqdxu74-94-6608hcwobmxih virus vaccine, unspecified formulationBremuriel Geiger MD Work Phone: noCass Medical CenterWngwiedrja05-29-1061sfafxpepn virus vaccine, unspecified formulationBremuriel Geiger MD Work Phone: [facility] Payers DatePayer CategoryPayerPolicy [id number] [id number] [id number] 2..840.1.205210.3.579.2.647 [id number] 2.16840.1.545663.3.57[id number] 2.16.840.1.633671.3.57[id number] 2..840.1.802058.3.57[id number] 2.16.840.1.407491.3.57[id number] 2.840.1.830626.3.579.2.00378-50-4044Iikkklp7778112 2.840.1.071106.3.579.2.40610-04-3404Mnboslp6463613 2.840.1.548148.3.579.[id number] 2.840.1.774375.3.57[id number] 2.840.1.321106.3.57[id number] 2.840.1.309133.3.579.[id number] 2.840.1.950290.3.579.[id number] 2.840.1.417329.3.57[id number] 2.840.1.594369.3.57[id number] 2.840.1.169497.3.57[id number] 2.840.1.967836.3.579.2.[id number] 2.840.1.298877.3.579.2.[id number] [id number] 2.16.840.1.3[id number] 2.16.840.1.9[id number] 2.16.840.1.258828.3.579.2.531 Social History DateTypeDetailFacilityTobacco smoking statusNo Smoking Status EnteredExecutive [facility]rology [facility] start: 03-27-2024 End: 27-10-6953Zgc [facility] start: 05-15-2018 End: 09-41-2100Ceogkhs smoking status NHISEx-smoker (finding)[facility] 30-81-3688Swd [facility]: 62-31-0766Rvytfol smoking status NHISNever smoked tobacco [facility]Start: 08-46-2713Axdwhlc use and exposureSmokeless tobacco non-userNOMS HealthcareStart: 03-27-2024 End: 99-04-2157Mcnaunfyo beverage intakeEx-drinker (finding)[facility] Start: 03-27-2024 End: 16-37-9697Rnrvyts of Social functionNOMS HealthcareStart: 27-63-0543Fdp assigned at birthNot on fileNOMS HealthcareStart: 46-67-9524WcdQuey (finding) [facility]: 02-08-5535GahWbrkGZKL Healthcare Functional Status IoezIqnbsruvifPlgmuiFsiazhsz56-34-4399Xdcwkujbqo StatusN/AExecutive Urology [facility] Clinical Notes 02-25-2022 to 07-13-2025 Note Date & VndyJmrlShwnsuap17-90-9524 History of Present illness Narrative* Heather Rainey, [employer]ER - 07/13/2025 2:40 PM EDT Images from [...] care. This clinical note was created utilizing [employer] documentation system. All information has beenthoroughly reviewed, corrected as necessary, and authenticated by the provider to ensure accuracy and completeness. On occasion, [employer] documentation system erroneously drops words or replaces aspoken word with a similar sounding word. Please notify with any questions or concerns regarding this clinical note. documented in [facility] encounterSt. [facility] [id number] Radiology Diagnostic study [facility] [place] [address] [place] [address] CT Scan Report Signed Patient: Matty Garces MR#: [id number] : 1970 Acct:[id number] Age/Sex: 54 / M ADM Date: 5 Loc: CT Room: Type: [facility] CLI Attending Dr: Jameel Coats DO [...] Irving M.D. 05/29/2025 11:40 PM Dictation Location: [facility]--17 Transcribed By: [facility] 05/29/252339 Dictated By: Francis Irving II, MD 05/29/25 4788 Signed By: 05/29/252339 [facility] Work Phone: 1(554) 304-235209-03-2025 Telephone encounter Note* Telephone Encounter - Heather Rainey NP - 05/16/2025 8:45 AM EDT [facility] [id number] Miscellaneous Notes* Telephone Encounter - Heather Rainey NP - 05/16/2025 8:45 AM EDT OARRS reviewed documented in this encounterSt. Louis Children's [id number] Evaluation note* Diagnosis Onset Date Resolution Status Admit Date Hypertrophy of bone of lower leg noneactiveAugust 2024 11:21amFracture of right tibia and fibulanoneactive May 07, 2025 11:21amRight leg painnoneactiveAugust 2024 11:21am [facility] Work Phone: 1(521) 606-512907-23-2025 History of Present illness Narrative* Rubén Geiger [...] in all four extremities, including at least steam hand, finger abductors, biceps, triceps, deltoid, toe [...] refill for Xywav will be sent to [facility]. If symptomspersist or worsen, further [...] up in 3 months. documented in this encounterSt. Louis Children's HospitalVadpcaktyc22-15-1983 History of Present illness Narrative* Rubén Geiger [...] 1 mg, Oral, 2 times daily HYDROcodone-acetaminophen ([place]) 5-325 MG tablet hydrOXYzine pamoate (Vistaril) 25 [...] in all four extremities, including at least steam hand, finger abductors, biceps, triceps, deltoid, toe [...] Increase Xywav to 6mg documented in this encounterSt. Louis Children's HospitalKpcqudwavl34-80-7450 History of Present illness Narrative* Rubén Geiger [...] 1 mg, Oral, 2 times daily HYDROcodone-acetaminophen ([place]) 5-325 MG tablet hydrOXYzine pamoate (Vistaril) 25 [...] in all four extremities, including at least steam hand, finger abductors, biceps, triceps, deltoid, toe [...] intracranial or extracranial stenosis. documented in this encounterSt. Louis Children's HospitalGxnndgncjl56-77-0923 Telephone encounter Note* Telephone Encounter - Isabella Manzano - 11/14/2024 9:49 AM EST Pt called for refill on Zofran. [facility] Work Phone: 1(280) 900-358403-04-2025 Miscellaneous Notes* Telephone Encounter - Isabella Manzano - 11/14/2024 9:49 AM EST Pt called for refill on Zofran. documented in this encounterSt. Louis Children's HospitalQwzdovcpnc37-30-3529 Telephone encounter Note* Telephone Encounter - Heather [...] sent and if I search patient chat. [facility] HospitalIvfquzurhk97-02-4144 Miscellaneous Notes* Telephone Encounter - Heather Rainey [...] I search patient chat. documented in this encounterSt. Louis Children's HospitalPysdqqtxuq40-03-9448 NoteOccupational Therapy Occupational Therapy Treatment Note Patient [...] going to put in a elba toilet. (Bridge Tender suggesting a RTS or to have son put in toilet however, pt stated that he will replace the toilet himself) Objective 1 Pt was up in chair at EOS with on her way. Objective 2 Bridge Tender provided education on home and bathroom safety. [...] A Little (Min Henrietta (more content not included)...[facility] 10-11-2024 NoteHospital Medicine Discharge Summary Final Discharge Diagnosis: Left leg cellulitis Open wound of left great toe HTN Anxiety disorder Chronic combined systolic and diastolic Congestive heart failure, NYHA II Closed fracture of right fibula and tibia Admission Diagnosis: Left leg cellulitis [L03.116] Cellulitis of right lower extremity [L03.115] Cellulitis of left leg [L03.116] Hospital course: 54-year-old male who came from [facility] due to left lower extremity cellulitis. [...] 10/26/2024 2:50 PM Sandrine Field MD [facility] Your medication list START taking these medications [...] Medications These medications were sent to [facility] - [place], [place] - [address] [place] [address] [place] [address], [facility] [address] Phone (more content not included)...[facility] 10-11-2024 NotePharmacy Dosing Service - Vancomycin [...] or questions Thank you, Sudha Camacho, PharmD, 10/11/24[facility]01-29-2025 Note Attestation signed by Sandrine Field [...] with any concerns via the Orthopaedic pager ([phone]) at any time. Jazzmine Casanova MD Orthopedic Surgery Resident, PGY 1UnAv[facility]01-28-2025 [facility] Medicine Daily Progress Note - 10/10/2024 6:40 PM; Room: [address] [place] [address] Admission: 10/08/2024 5:47 AM; Length of stay: 2 days THE HOSPITALIST TEAM PREFERS TO USE [employer] CHAT FOR NON-URGENT COMMUNICATION 7AM-7PM. IF I DO NOT RESPOND WITHIN 20 MINUTES OR URGENT MATTERS, PLEASE CALL THROUGH THE ADVISORY INTERNSHIP. FROM 7PM-7AM, PLEASE PAGE [phone](COVR). Code Status: Full Code Barriers to Discharge: [...] , FREET4 , CORTISOL , FEV1 , PFF4XGT , DLCO , RVSP , HDL , LDL No results found for: ULDBHNSX06 , IRON , TIBC , C3 , [...] Discharge Planning Expected Discharge Disposition: Home-Health Care [facility] (06) PT (more content not included)...[facility]01-28-2025 NoteUnOhioHealth O'[facility]len[facility] Hospital Vascular Surgery/Wound Care CONSULTATION Reason for [...] Patient reports that he has followed with plumber's helper in [place] for many years for treatment of his left great toe DFU. States that is chronic and has been minimal healing progress until recently. Patient states he would like to resume care with this plumber's helper at discharge. He has not been able to see plumber's helper since previous discharge due to scheduling issues. [...] on file Occupational Histor (more content not included)...[facility]01-28-2025 NotePhysical Therapy Physical Therapy Treatment Patient [...] Stand Technique 1 S (more content not included)...[facility] 10-10-2024 Note. Pharmacy Dosing Service - [...] 5 days. -Check BUN/SCr daily Erin RangelD, 10/09/24[facility]01-27-2025 Note Occupational Therapy Occupational Therapy Evaluation Patient Name: Matty Garces : 1970 Today's Date: 10/09/2024 Time in:1504 Time out: 1526 Present Illness History: 54 y/o M presented from [facility] with R LE cellulitis. Patient was recently [...] Level of Function Prior Function Level of Ciales: Independent with ADLs and functional transfers, Independent [...] mobility, transfers and fu (more content not included)...[facility]01-27-2025 Note10/09/24 0909 Admission Assessment Questions Verify [...] Status Interested Does the patient have a catalytic case operator assigned to them through their insurance? No Living Arrangement (Current/Prior to Hospitalization) Private residence (lives with ) Does the patient have history of C or SNF? Yes (Active with Radha[facility]) Assistive Device Wheelchair;Bedside Commode;Walker Patient's goal for discharge Home with [facility] Was patient reminded that goal for discharge is 11am? No Does the patient have transportation at discharge? Yes Type of Residence Private residence;Home care staff Is PT/OT appropriate? Yes Is PT/OT ordered? Yes Is SW consult appropriate? Yes Is SW consult ordered? Yes Do you understand the benefits of MyChart? Yes Were you able to send link and activate MyChart? [facility]01-27-2025 NoteHospital Medicine Daily Progress Note - 10/09/2024 12:13 PM; Room: [address] [place] [address] Admission: 10/08/2024 5:47 AM; Length of stay: 1 days THE HOSPITALIST TEAM PREFERS TO USE [employer] CHAT FOR NON-URGENT COMMUNICATION 7AM-7PM. IF I DO NOT RESPOND WITHIN 20 MINUTES OR URGENT MATTERS, PLEASE CALL THROUGH THE ADVISORY INTERNSHIP. FROM 7PM-7AM, PLEASE PAGE [phone](COVR). Code Status: Full Code Barriers to Discharge: [...] , FREET4 , CORTISOL , FEV1 , XYC7HDX , DLCO , RVSP , HDL , LDL No results found for: FTJNTVBA83 , IRON , TIBC , C3 , [...] Discharge Planning Expected Discharge Disposition: Home-Health Care [facility] (06) PT Discharge Recommendations: Home PT Signed C (more content not included)...[facility]01-27-2025 NotePhysical Therapy Physical Therapy Re-Evaluation Patient Name: Matty Garces : 1970 Today's Date: 10/09/2024 General Subjective: Attempted to see pt earlier today ([id number]) for mobility assessment. Pt deferred d/t pain [...] Exercise Therapeutic Exercise Therape (more content not included)...[facility] 10-09-2024 Note. Pharmacy Dosing Service - [...] steady state -Check BUN/SCr daily Erin RangelD, 10/09/24UnAv[facility]01-27-2025 Note Orthopaedic Surgery Orthopaedic Surgery Progress [...] Rivas MD Orthopaedic Surgery, PGY-2 Ortho Pager [phone] 10/09/24 6:38 AM I am available via [employer] 6a-6p. May contact the on-call resident with any concerns via the Orthopaedic pager at any time.[facility]01-26-2025 NoteCase was discussed with the AYAKA on 10/08/2024. I agree with the history, physical, assessment, and plan of care. I discussed the findings and therapeutic plan. I agree with the documentation, except for any updates below. Fabiola Wade, [facility]01-26-2025 NotePhysical Therapy Evaluation Patient Name: Matty Garces Today's Date: 10/08/2024 Admit Date: 10/08/2024 Time In: 1:20pm Time Out: 1:45pm Cumulative minutes: 25 minutes Billed minutes: 25 minutes; 15 min eval; 10 min therapeutic exercise to review HEP x10 reps. History of present illness Per H&P: Matty Garces is an 54 y.o. male who came from [facility] with LLE cellulitis. Patient has PMH of hypertension, diastolic heart failure, GERD, anxiety. He recently was admitted here and had right leg tib/fib fracture and seen by our ortho team and had closed insertion with intramedullary wendy on 09/24/24 and was discharged home. He reports he went to [place] ER due to increased pain, swelling and [...] patient refused this stating he already has [facility] set up and wants to go home. Vascular surgery was consulted for a chronic left foot ulcer. Pulmonary navigator was consulted for PATEL and recommended OP sleep study. On day of discharge, Trauma team was informed at approximately 1730 per [facility] that patient went into a-flutter and sustained for approximately 2 hours from approximately [id number]. Trauma team ordered a STAT ECG and [...] WB status. Objective assessment (more content not included)...[facility]01-26-2025 NotePharmacy Dosing Service - Vancomycin Initial Consult Note Pharmacy has been consulted for the dosing and evaluation of Drug: Vancomycin Indication: complicated skin and soft tissue infection AUC 400-600 mg*hr/L and trough 10-20 mcg/mL Other Antimicrobial Regimens: cefepime Labs and Renal Function Total body weight: 134 kg (295 lb) [place] body weight: 82.2 kg (181 lb 3.5 [...] Comments: - 54 year old male from [place] with LLE cellulitis -Had intramedullary ewndy placed on 09/24/24 but experienced increased pain, [...] or questions Thank you, Altaf Martin, PharmD, 10/08/24Un[facility]01-26-2025 Note Will consult wound careUnAvita Health System [facility]01-26-2025 Note Continue vanco and zosyn Ortho following Will get blood culturesUnAvita Health System [facility]01-26-2025 Note Continue citalopram, clonazepamUnAvita Health System [facility]01-26-2025 NoteContinue modafinil, coregUnAvita Health System [facility]01-26-2025 Note Not in exacerbation Continue furosemide, coreg, asaUnAvita Health System [facility]01-26-2025 NoteOrtho following, concern for possible infection Admit to med surg Activity orders per ortho with LLE Cardiac diet Will get labs this morning and follow up on results Daily bmp and cbc to monitor kidney function, electrolytes, hgb and wbc Case will be discussed with attending physicianChillicothe Hospital01-26-2025 NoteHospital Medicine History and Physical 10/08/2024 7:26 AM THE HOSPITALIST TEAM PREFERS TO USE [employer] FOR NON-URGENT COMMUNICATION 7AM-7PM. IF I DO NOT RESPOND WITHIN 20 MINUTES OR URGENT MATTERS, PLEASE CALL THROUGH THE ADVISORY INTERNSHIP. FROM 7PM-7AM, PLEASE PAGE [phone](COVR). Chief Complaint Chief Complaint Patient presents with Cellulitis History of Present Illness Matty Garces is an 54 y.o. male who came from [facility] with LLE cellulitis. Patient has PMH of hypertension, diastolic heart failure, GERD, anxiety. He recently was admitted here and had right leg tib/fib fracture and seen by our ortho team and had closed insertion with intramedullary wendy on 09/24/24 and was discharged home. He reports he went to [place] ER due to increased pain, swelling and [...] this hospital stay by a member of [facility]. Past Medical History Past Medical [...] Insecurity: No Food Insecurity (more content not included)...[facility]01-20-2025 Telephone encounter Note* Telephone Encounter - Marianna Sheehan LPN - 10/02/2024 2:19 PM EST Provigil refill request to [facility] sent to provider. Last appt. 07/03/24 [facility] HospitalDujgenypxj48-43-1273 Miscellaneous Notes* Telephone Encounter - Marianna Sheehan LPN - 10/02/2024 2:19 PM EST Provigil refill request to [facility] sent to provider. Last appt. 07/03/24 documented in this encounterSt. Louis Children's HospitalYfqnqwhhrb54-14-4174 NoteTrauma team informed at approximately 1730 per [facility] that patient went into a-flutter and sustained for approximately 2 hours from approximately 1295-5723. Trauma team ordered a STAT ECG and [...] tonight, AMA AMA paperwork reviewed and signed [facility]01-16-2025 Note09/28/24 1537 Home Oxygen Therapy Evaluation Pulse Oximetry on room air at Rest 94 Pulse Ox on room air while walking 96 Patient Qualification for home oxygen Does not qualify for home oxygen this visit (When pt is sleeping, apnea is noted and at times saturation drops but when pt is awake and moving his oxygenation is stable)[facility]01-16-2025 NoteUnOhioHealth O'Bleness Hospital Trauma Surgery Progress Note Subjective Patient [...] QT Interval 386 QTC CALCULATION(BAZETT) 450 P Madeline 61 R-Madeline 18 T Wave Madeline 69 Impression Normal sinus rhythm Normal ECG [...] C, PT/OT recommending walker, commode, and rolling wheelchair.[facility]01-16-2025 Note Physical Therapy Physical Therapy Treatment [...] EOB, commode, and recliner (more content not included)...[facility]01-16-2025 NoteOccupational Therapy Occupational Therapy Treatment Patient [...] apnea) Gastroesophageal reflux disease Obese Co-tx with SUPERVISORY TRAINING SPECIALIST to facilitate purposeful activity, 2/2 high fall risk, impaired dyn standing balance & act tolerance, poor safety awareness, & poor safety awareness with STS, transfers, & functional ambulation; To maintain safety of patient & staff. 09/28/24 1358 OT Last Visit OT Received On 09/28/24 General Subjective I got my w/c 3rd hand...from my frjbtn-qz-wee. Treatment Duration (min) 55 Minutes Response to [...] not maintain precs. General Assessment Hearing mild [place] Skin Integrity ALVARO wrap to RLE, DFU [...] SBA for safety scooting EOB, positioning on [facility] Static Standing Balance Static Standing-Balance Support [...] Assistance 1 Close superv (more content not included)...[facility]01-16-2025 NoteCalled [email or web address] by phone to check on status of pt's DME (wheelchair, walker, bedside commode). Was advised they did not receive it via [employer] and would need it direct faxed to [phone]. Faxed referral and was advised they will [...] to call . UPDATE 3:05PM- Spoke with [employer] again and was advised the wheelchair [...] discharge around 6pm tonight. Also spoke with [facility] and was provided w/ fax [phone] to send AVS once ready. UPDATE 4:05PM- Direct faxed final AVS to [facility]01-16-2025 NoteUnOhioHealth O'Bleness Hospital Vascular and Wound Surgery DAILY PROGRESS [...] 2. Unchanged cardiomediastinal silho (more content not included)...[facility]01-15-2025 NoteDischarge Planning: Home with [facility] The patient was accepted by [facility]. DME referral sent to [email or web address]. The patient would like the DME either delivered to the hospital or his home prior to discharge.[facility]01-15-2025 Note Occupational Therapy Occupational Therapy Treatment Patient Name: Matty Garces : 1970 Today's Date: 09/27/2024 Time in:1357 Time out:1450 Total time:53 minutes,23 min OT, additional for SUPERVISORY TRAINING SPECIALIST [place] provided to maximize safety as [...] precautions etc Transfers 2 (more content not included)...[facility]01-15-2025 Note Physical Therapy Physical Therapy Treatment [...] 1 for lift, balance, (more content not included)...[facility]01-15-2025 Note Attestation signed by Fahad Rizzo MD at 09/28/2024 7:41 AM Patient seen and examined with trauma team [facility] Trauma Surgery Progress Note Subjective [...] kg (299 lb 2.6 oz) (09/27 338) [place] Coma Scale Score: 15 Intake/Output Summary (Last [...] QT Interval 386 QTC CALCULATION(BAZETT) 450 P Madeline 61 R-Madeline 18 T Wave Madeline 69 Impression Normal sinus rhythm Normal ECG [...] for acute findings. Respiratory: (more content not included)...[facility] 09-26-2024 NotePer patients patient was to start with [facility] on the day of admit. Referral made as requested. SW following.[facility]01-14-2025 NoteUnOhioHealth O'Bleness Hospital Vascular and Wound Surgery DAILY PROGRESS NOTE Subjective Patient seen and examined at bedside. No acute events overnight. Vital signs stable. Denies pain to the left ulcer. Patient states he follows regularly with plumber's helper at [facility] and plans to follow-up with [...] Increased oxygen requirements. COMPARISON: (more content not included)...[facility] 09-26-2024 NoteOccupational Therapy Occupational Therapy Treatment [...] on with B LE's elevated Objective 2 Bridge Tender discussed importance of discharging to facility for continued therapy prior to going home however, pt declines. Pt transfers are currently unsafe with keno writer/runner questioning ability to maintain WB status. OT [...] Other Pt is impulsive during standing/transfer activities. Bridge Tender questions pts safety while at home. General [...] endurance, Decreased functional mobility, Decreased IADLs OT Assessment/MAJOR GIFTS DIRECTOR Summary: Pt would benefit from continued therapy [...] training, Endurance training, Patient/f (more content not included)...[facility]01-14-2025 NoteOrthopaedic Surgery Orthopaedic Surgery Progress Note [...] Can be reached at the orthopedic pager: [phone] Luis Felipe Rivas MD 09/26/24 7:24 AM Ortho Pager: [phone] Health System [facility]01-14-2025 Note [facility] Trauma Surgery Progress Note Subjective Subjective: [...] kg (303 lb 9.2 oz) (09/26 043) [place] Coma Scale Score: 15 Intake/Output Summary (Last [...] QT Interval 386 QTC CALCULATION(BAZETT) 450 P Madeline 61 R-Madeline 18 T Wave Madeline 69 Impression Normal sinus rhythm Normal ECG [...] Syncopal workup -Telemetry monitori (more content not included)...[facility]01-13-2025 NotePt was seen early this morning about wearing BiPap for possible sleep apnea due to periods of apnea and decreased oxygen saturation overnight. Pt refused BiPap, stating he has tried it before and it gives him migraines. Pt was agreeable to wearing a salter at night to help with oxygenation.[facility]01-13-2025 Note09/25/24 1528 Referral Data Referral Source [employer] Referral Reason Follow up;Information Patient Information Primary Caregiver Spouse Activities of Daily Living Assistive Device Walker;Wheelchair Behavior Oriented Communication Talks;Understands speaking Discharge Planning Living Arrangements Spouse/significant other Support Systems Spouse/significant other Type of Residence Private residence;[facility] (await name of agency from ) Post Acute Services In home services (agreeable to [facility]) Type of Home Care Services (Current) Skilled Home Servicies;Home OT;Home PT ([facility] was just going to start services before admit) Patient's goal for discharge home with [facility] Does the patient need discharge transport arranged? No () Screened by [facility]. Pt declines SNF placement and is agreeable to take pt home with [facility]. Await name of [facility] agency that was approved to start services. Pt will likely need RT for home O2. Will follow up with pt's for [facility] agency. thinks [facility] agency is [facility] or [employer] [facility]. SW will follow with referrals.[facility]01-13-2025 Note09/25/24 1332 Admission Assessment Questions Verify [...] Status Interested Does the patient have a catalytic case operator assigned to them through their insurance? No Living Arrangement (Current/Prior to Hospitalization) Private residence;Home self care Does the patient have history of HHC or SNF? Yes (pt could not remember the [facility] agency name, neither could ) Assistive [...] Assessment completed with , patient deferred to .[facility]01-13-2025 NoteThe findings from this face to face encounter indicate the reason this patient requires a bedside commode. Patient is physically incapable of using regular toilet facilities. Patient is confined to 1 level of the home with no toilet on that level [facility] Department of Surgery - Trauma [phone]01-13-2025 NoteThe findings from this face to [...] is provided in the home [facility] Department of Surgery - Trauma [facility] [place], [place] 1420801-13-2025 NoteThe findings from this face to face [...] been discussed with the patient [facility] Department of Surgery - Trauma [phone] [place], [place] 8574701-13-2025 NotePhysical Therapy Physical Therapy Evaluation Patient Name: [...] demo General Assessment General Assessment Hearing: mild ELEM Skin Integrity: alvaro wrap to RLE, wound [...] Level of Function Prior Function Level of Ciales: Independent with ADLs and functional transfers, Independent [...] deficits Perception Inattention/Neglect: A (more content not included)...[facility]01-13-2025 Note Attestation signed by Gabriel Seay [...] meet criteria for admission to IPR: Assessment: Hudspeth fracture of the right tibial shaft and [...] Plan of Care: Patient with diagnosis of Hudspeth fracture of the right tibial shaft and [...] oral, TID wit (more content not included)... [facility]01-13-2025 NoteOccupational Therapy Occupational Therapy Evaluation Patient [...] carryover General Assessment General Assessment Hearing: Mild ELEM Skin Integrity: ALVARO wrap to RLE, DFU [...] LLE heel WB de (more content not included)...[facility]01-13-2025 NoteOrthopaedic Surgery Orthopaedic Surgery Progress Note [...] Rivas MD 09/25/24 7:02 AM Ortho Pager: [phone] Health System [facility]01-13-2025 Note [facility] Trauma Surgery Progress Note Subjective Subjective: [...] QT Interval 386 QTC CALCULATION(BAZETT) 450 P Madeline 61 R-Madeline 18 T Wave Madeline 69 Impression Normal sinus rhythm Normal ECG [...] mary lou-colace an (more content not included)... [facility]01[facility]12-20[facility]Un[facility] CONSULTATION Reason for Consult: Left foot ulcer Subjective History of Present Illness: Matty Garces is a 53 y.o. male with a PMH of DM, HTN, HF and recent cellulitis to [facility] . He is admitted for transverse [...] BID, ROMAIN Acevedo, 1 tablet at 09/24/24 8058 Social History Socioeconomic History Marital status: Spouse [...] rhythm. Pulmonary: Effort: Pulmonar (more content not included)...[facility]01-12-2025 NoteOrthopaedic Surgery Orthopaedic Surgery Progress Note [...] from day of surgery upon discharge. LAZ RBO MD 09/24/24 10:29 PM Ortho Pager: [phone] [facility] Note Patient: Matty Garces Procedure Summary Date: 09/24/24 Room / Location: [facility] OPERATING ROOM 05 / [facility] Operating Room Anesthesia Start: 1020 Anesthesia [...] preop) Hydration status: acceptable No notable events documented.[facility]01-12-2025 Note Airway Date/Time: 09/24/2024 10:35 AM Urgency: elective General Information and Staff Patient location during procedure: OR Anesthesiologist: Jeffery Casey MD Resident/TURRET LATHE TENDER/CAA: Kenneth Marina MD Performed: resident/TURRET LATHE TENDER/CAA Indications and Patient Condition Indications for [...] approach: 1 Number of other approaches attempted: 0UnAvita Health System [facility] Hospital 09-24-2024 NotePatient: Matty Garces Procedure Information Date/Time: 09/24/24 1000 Procedure: CLOSED INSERTION, INTRAMEDULLARY WENDY, TIBIA (Right: Leg Lower) Location: [facility] OPERATING ROOM 05 / [facility] Operating Room Surgeons: Sandrine Field MD [...] QT Interval 368 QTC CALCULATION(BAZETT) 467 P Madeline 54 R-Madeline 60 T Wave Madeline 12 Impression Normal sinus rhythm Normal ECG [...] discussed with attending and resident. Additional Equipment RequestsCh[facility] Note Subjective Patient resting comfortably in [...] wounds to LLE, wounds (more content not included)...[facility]01-12-2025 NotePhysical Therapy Name: Matty Garcse Date of : 1970 Today's Date: 09/24/24 Pt is unable to be seen for therapy at this time secondary to Surgery today for fixation of frature. Will check back and complete therapy session as appropriate. Check No Charge Time attempted: [id number] Janet Lovelace PT, [facility]PITALUnAv[facility]01-12-2025 Note Orthopaedic Surgery Orthopaedic Surgery Progress [...] Rivas MD Orthopaedic Surgery, PGY-2 Ortho Pager [phone] 09/24/24 7:29 AM I am available via [facility] chat 6a-6p. May contact the on-call resident with any concerns via the Orthopaedic pager at any time.[facility]10-22-2024 Telephone encounter Note* Telephone Encounter - Nita Anthony - 07/04/2024 4:10 PM EDT left message regarding prescriptions earlier today and not being at pharmacy. I did call back and spoke to advising they were sent this afternoon. had mentioned Dr. Geiger was also going to start a Vitamin B to help boost energy in the morning. [facility] [place]. [facility] [id number] Miscellaneous Notes* Telephone Encounter - Nita Anthony - 07/04/2024 4:10 PM EDT left message regarding prescriptions earlier today and not being at pharmacy. I did call back and spoke to advising they were sent this afternoon. had mentioned Dr. Geiger was also going to start a Vitamin B to help boost energy in the morning. [facility] [place]. documented in this encounterSt. Louis Children's [id number] History of Present illness Narrative* Rubén Geiger [...] 1 mg, Oral, 2 times daily HYDROcodone-acetaminophen ([place]) 5-325 MG tablet hydrOXYzine pamoate (Vistaril) 25 [...] reflexes: Alycia's absent. Ankle clonus absent. Coordination Lfeiri-fu-ramv, rapid alternating movements and cxbr-ga-xuzg normal bilaterally without dysmetria. Gait Normal casual, [...] Follow up 3 months. documented in this encounterSt. Louis Children's [id number] NotePROCEDURE: XR FOOT LT MIN 3 VIEWS [...] Electronically authenticated by: ALVINA CAICEDO Date: 2022-03-26 10:47[facility]06-15-2022 Hospital Discharge instructions Patient Education 02/25/2022 [...] Watch the hydrocele for any changes. Take rawq-akx-stfoxlw and prescription medicines only as told by [...] 02/17/2011 Document Revised: 09/10/2018 Document Reviewed: 09/10/2018 [facility] Patient Education 2020 [employer]. Follow Up Care 01/28/2022 10:36:35 With:Mitchel DELGADO, CHINA Gregorio, URO Address: When: Unknown [facility] [place] [facility] evaluation + Plan note No data available for this section [facility] [place] [facility] evaluation noteNo assessment information available [facility] Work Phone: Evaluation note* Diagnosis Excessive daytime [...] May 07, 2025 11:21amRight leg painnoneactiveAugus2024 11:21am [facility] Work Phone: Evaluation note* Diagnosis Excessive [...] available for this section [facility] [place] [facility] reason for referral (narrative)No reason for referral information availableSt. Anthony'S Hospital Work Phone: Summary Purpose Family History [...] May 11:42am Hospital Course Note MR#: [id number] [facility] Pt. Name: Matty Garces Admitted: 01/30/2019 [...] and content) DATE CREATED AUTHOR 07/19/2019 [facility] DATE CREATED AUTHOR AUTHOR'S ORGANIZ ATION 02/27/2022 [facility] DATE CREATED AUTHOR AUTHOR'S ORGANIZ ATION 12/08/2022 [facility] DATE CREATED AUTHOR AUTHOR'S ORGANIZ ATION 12/03/2023 [facility] DATE CREATED AUTHOR AUTHOR'S ORGANIZ ATION 10/15/2024 [facility] DATE CREATED AUTHOR AUTHOR'S ORGANIZ ATION 06/23/2025 [facility] DATE CREATED AUTHOR AUTHOR'S ORGANIZ ATION 07/15/2025 [facility] EPIC Care Team (unrecognized sect ion and content) Team Status: Inactive Member Role Status Dates Trey Vallejo DPM MS Attending Provider Active Start: January 03, 2024 End: January 03, 2024Team MemberRelationshipSpecialtyStart DateEnd Date Venus Jaeger MD [address] [place] [address] PCP - GeneralFamily Medicine01/10/24Team MemberRelationshipSpecialtyStart DateEnd Date Venus Jaeger MD [address] [place] [address] PCP - GeneralFamily Medicine01/10/24Team MemberRelationshipSpecialtyStart DateEnd Date Venus Jaeger MD [address] [place] [facility] [address] PCP - GeneralFamily Medicine01/10/24Team MemberRelationshipSpecialtyStart DateEnd Date Venus Jaeger MD [address] [place] [facility] [address] PCP - GeneralFamily Medicine01/10/24 Team Status: Inactive Member Role Status Dates Trey Vallejo DPM MS Attending Provider Active Start: September 21, 2024 End: September 21, 2024Team MemberRelationshipSpecialtyStart DateEnd Venus Jaeger MD [address] [place] [facility] [address] PCP - GeneralFamily Medicine01/10/24Team MemberRelationshipSpecialtyStart DateEnd Venus Jaeger MD [address] [place] [facility] [address] PCP - GeneralFamily Medicine01/10/24Team MemberRelationshipSpecialtyStart DateEnd Date Venus Jaeger MD [address] [place] [facility] [place] [address] PCP - GeneralFamily Medicine01/10/24Team MemberRelationshipSpecialtyStart DateEnd Date Venus Jaeger MD [address] [place] [facility] [place] [address] PCP - GeneralFamily Medicine01/10/24Team MemberRelationshipSpecialtyStart DateEnd Date Venus Jaeger MD [address] [place] [address] PCP - [facility]01/10/24Team MemberRelationshipSpecialtyStart DateEnd Date Venus Jaeger MD PCP - [facility]01/10/24Team MemberRelationshipSpecialtyStart DateEnd Date Venus Jaeger MD PCP - [facility]01/10/24Team MemberRelationshipSpecialtyStart DateEnd Venus Jaeger MD PCP - [facility]01/10/24 Team Status: Active Member Role Status Lacey Jaeger MD Primary Care Provider Active Team Status: Inactive Member Role Status Lacey Jaeger MD Primary Care Provider Active Start: May 07, 2025 End: May 07, 2025JuDania Paulson ProviderActiveStart: May 07, 2025 End: May 07, 2025Team MemberRelationshipSpecialtyStart DateEnd Date Venus Jaeger MD PCP - [facility]01/10/24Team MemberRelationshipSpecialtyStart DateEnd Venus Jaeger MD PCP - [facility]01/10/24 Team Status: Inactive Member Role Status Lacey Jaeger MD Primary Care Provider Active Start: May 29, 2025 End: May 29, 2025Justin A Pauly , DOAttending ProviderActiveStart: May 29, 2025 End: May 29, 2025 Team Status: Inactive Member Role Status Dates Bonnie Ernandez MD Attending Provider Active Sta rt: June 20, 2025 End: June 20, 2025Team MemberRelationshipSpecialtyStart DateEnd Date Venus Jaeger MD [address] [place] [phone] PCP - [facility]07/13/25Team MemberRelationshipSpecialtyStart Date End Date Venus Jaeger MD [address] [place] [address] PCP - [facility]07/13/25 Goals (unrecognized section and content) Goals may [...] BE BASED ON THE PRIMARY CLINICAL RECORDS. [employer] [facility]. provides no warranty or guarantee of the accuracy or completeness of information in this document.
== END 2025-08-15 11:00 | disposition home or self-care (01) ==
LOC: WC 11:00
PROVIDERS: PCP Family Medicine; Visit Provider Podiatrist Foot & Ankle Surgery
DX: E11.621 Type 2 diabetes mellitus with foot ulcer (principal); L97.525 Non-pressure chronic ulcer of other part of left foot with muscle involvement without evidence of necrosis
CPT/HCPCS: G0463

== ENCOUNTER 2025-08-21 03:11 | Inpatient (IN) | payer MEDICAID, SELFPAY ==
--- OUTSIDE RECORDS SUMMARY | 2022-08-24 05:16 | XMS_ITS | Continuity of Care Document ---
Author Organization [facility] Address [address] [place] [phone] Phone Care Team Providers Care Drop Wire Stringer Name Role Phone Kiesha YAO Bora Unavailable Unavailable Procedures Procedure Date Denies Tobacco Use INTRAORAL:PERIAPICAL 1ST FILM LIMITED ORAL EVAL:PROBLEM FOCUSED Treatment Initiated Advance Directives Directive Yes / No Effective Date File Name No Information Encounters Encounter Description Practice Location Reason(s) For Visit Diagnoses Date Provider Providers Copied on Encounter [facility], [address] [place] [address], [id number], tel:[phone] [facility] No Information 2 Kiesha Sahni. [address] [place] [address], [id number] [place], [id number] , [place]. tel:[phone] [facility], [address] [place] [address], [id number], [place] tel:[phone] [facility] S Main Encounter for dental exam and cleaning w/o abnormal findingsEncounter for dental exam and cleaning w abnormal findings 2 Juliane Burnette. [address] [place] [address], [id number] [place], [id number] , [place]. tel:[phone] Family History Family Member Type Diagnosis Age At Onset No Information Payers Payer name Insurance type Covered libertarian ID Alec campa(s) [facility] [id number] Social History Type Description Quantity Date Captured Comments Sex Male Smoking Status No Information Sexual Orientation Choose not to disclose Gender Identity Choose not to disclose 022 Chief Complaint And Reason For Visit No Information Reason For Referral Reason For Referral No Information History Of Present Illness Encounter Date Complaint History Of Prese nt Illness No Information Functional Status Date Functional Assessmen t No Information Instructions Date Instruction Additional Infor mation No Information Assessments Type Assessment Date No Information Patient Care Teams Name Effective Dates (start - stop) Status Members No Information
[2025-08-21] VITALS (13 sets, daily range): BP systolic 101–147; BP diastolic 68–87; PULSE 70–101; TEMP 36.6–37.6; O2SAT 92–100; BMI 33.1; BMI 35.4
--- OUTSIDE RECORDS SUMMARY | 2025-08-21 03:35 | XMS_ITS | Clinical Summary ---
Author Organization [facility] Address [address] [place] [address] Care Team Providers Care Car Wash Supervisor Name Role Phone Caden Mendez MD Primary Care Provider [phone] Allergies No known active allergies Medications MedicationSigDispense [...] Last Filed Vital Signs Vital SignReadingTime TakenCommentsBlood Gugtozno234/4214204/06/2012 12:54 PM EDT Qyrjl526104/06/2012 12:54 PM ITVVbnqqdyzqnx06.1 ??C (98.7 ??F)04/06/2012 12:54 PM EDTRespiratory Rate--Oxygen Saturation--Inhaled Oxygen Concentration--Weight 107.5 kg (237 lb)04/06/2012 12:54 PM EDTHeight--Body Mass Index-- Plan of Treatment Health MaintenanceDue DateLast DoneCommentsAnxiety Vfxtgpqsf70/21/1988Depression Rtzlbmqco03/21/1988HIV Iwtbkzlgr87/21/1988Hepatitis C Tpjnqpuwb37/21/1988 DTaP,Tdap,Td Vaccine (1 - Tdap)1988Hepatitis B Vaccine (1 of 3 - 19+ 3- dose series)1988Lipid Fantyvfiz55/21/2005CT Mfkxxszpieli65/21/2015 Cologuard (FIT-DNA)10/03/20145149Wkgnaobyyej77/21/2015Colorectal Cancer Screening 2014Fecal Occult Blood2014Prostate Cancer Screening Discussion 10/03/20141762Almgxhokcynyu81/21/2015Diabetes Bvevefwzf58/04/ Pneumococcal Vaccine: 50+ (1 of 1 - PCV)2019Shingrix Vaccine (1 of 2) 2019Covid-19 Vaccine (1 - 2024- season)2025Influenza Vaccine (#1) 2025 Procedures Procedure NamePriorityDate/TimeAssociated DiagnosisCommentsCOMPREHENSIVE METABOLIC WMYQRVaxdmta34/04/2012 1:47 PM EDT Myalgia from Last 3 Months or Most Recently Relevant to Health Maintenance Results * (ABNORMAL) COMP METABOLIC PANEL (05/17/2012 1:47 PM EDT)ComponentValueRef RangeTest MethodAnalysis TimePerformed AtPathologist SignatureProtein, Total 7.56.0 - 8.4 g/dLSELECT MEDICAL [facility] MAIN LABORATORYAlbumin4.83.5 - 5.0 g/dL [facility] MAIN LABORATORYCalcium9.68.5 - 10.5 mg/dLDILEY RIDGE MEDICAL CENTER LABORATORYBilirubin, Total0.30.0 - 1.5 mg/dLDILEY RIDGE MEDICAL CENTER LABORATORYAlkaline Ezdfiyoxmiz0287 - 150 U/LCSELECT [facility]ICAL [facility] LABORATORY HBT804 - 40 U/LCSELECT [facility]ICAL [facility]TY [facility] FXAXJXERNEKtixjgf71(L)65 - 100 mg/dL [facility] YGVEKZAMCRTWD4295 - 25 mg/dLDILEY RIDGE MEDICAL CENTER LABORATORYCreatinine1.000.70 - 1.40 mg/dLDILEY RIDGE MEDICAL CENTER LABORATORY Pmvopp073425 - 146 mmol/LCMCKITRICK HOSPITAL MAIN LABORATORYPotassium3.53.5 - 5.0 mmol/LCMCKITRICK HOSPITAL MAIN NYYZVPAMATJcahlyyc47568 - 110 mmol/LCSELECT [facility]ICAL [facility] URXUAFXNFMIG44477 - 32 mmol/LCMCKITRICK HOSPITAL MAIN LABORATORYAnion Uwn304 - 15 mmol/LCMCKITRICK HOSPITAL MAIN BOMAVKAHLPHOG369 - 50 U/LCSELECT MEDICAL [facility] LABORATORYeGFR->60[facility] LAB[facility]ORY eGFR-All Other Races>60.[facility] LABORATORYComment: eGFR (Estimated GFR) Units of measure: [...] StatusJoan Smith MDLABORATORYFinal ResultPerforming OrganizationAddressCity/State/ZIP CodePhone Number [facility] [address] [place] [address] from Last 3 Months or Most Recently Relevant to Health Maintenance Insurance Care Teams Team MemberRelationshipSpecialtyStart DateEnd Date Caden Mendez MD PCP - GeneralFamily Medicine03/08/12
--- OUTSIDE RECORDS SUMMARY | 2025-08-21 03:35 | XMS_ITS | Clinical Summary ---
Author Organization [facility] Address [address] [place] [address] Care Team Providers Care Granite Polisher Name Role Phone Unavailable Primary Care Provider Unavailabl e Source Comments The following information is NOT included in Care Everywhere downloads:Psychiatric notes, ECG results, Cardiac Rehab notes, Pulmonary Function notes, data from [employer] (includes but not limited toPregnancy data,audiograms, eye exams, pre-surgical evaluation notes, well-child exam data).[facility] Medications MedicationSigDispense QuantityRefillsLast FilledStart DateEnd DateStatus TRAMADOL [...] InformationValueDate RecordedSex Assigned at BirthNot on fileLegal AowGlut74/12/2012 1:17 PM ESTGender IdentityNot on file Sexual OrientationNot on file Plan of Treatment Health MaintenanceDue DateLast QflmFsfxcqavKtsbwxszboc53/21/1970HIV Test 1984Hepatitis C Hmpoikcm52/21/1988Tdap Xykttvp3010/03/1987Hepatitis A (HAV) Vaccine (optional start 19+ years)1988Hepatitis B (HBV) Vaccine (1 of 3 - 19+ 3-dose series)1988Tetanus (Td or Tdap) Fjnpjbv4510/03/1988Cholesterol 2004CRC Smykkkbjf08/21/2015Cologuard (Stool DNA)2014FIT2014 Pneumococcal Vaccine(s) (50+ yrs) (1 of 1 - PCV)2019Shingles (RZV) Vaccine (1 of 2)2019COVID-19 Vaccine (1 - 2024- season)2025Influenza Vaccine (#1)2025 Insurance
--- OUTSIDE RECORDS SUMMARY | 2025-08-21 03:35 | XMS_ITS | Clinical Summary ---
Author Organization [facility] Address [address] [place] [address] Care Team Providers Care Animal Nutrition Consultant Name Role Phone Caden Mendez MD Primary Care Provider [phone] Allergies Active AllergyReactionsCriticalityNoted FldoRghjhkgnUapnlsmnRaryqtj75/26/2021 GvxhtlkecreGoliryt27/26/2021Morphine And VsezvzmTkdreor13/26/7588Nkvgm17/26/2021 Other Reaction(s): Unknown, will accelerate blindness in [...] each day at the same timeActive HYDROcodone-acetaminophen ([place]) 5-325 MG tablet 03/20/2024ctive cholecalciferol (Vitamin D-3) [...] THE MORNING AND AT NOON 60 tablet 11005/16/0641286Active modafinil (Provigil) 200 MG tablet Indications:Excessive daytime sleepiness,Obstructive sleep apneaTake 1 tablet (200 mg) by mouth in the morning and at noon 60 tablet 506Active Active Problems ProblemNoted DateDiagnosed DateCellulitis of left lower stvidoejx24/26/2025Open wound of left great toe10/08/2024Narcolepsy cataplexy rqiyrmrv01/22/2025Obese 09/24/2024losed fracture of right fibula and tibia09/23/2024Fall at home, initial mryurdoem88/11/2025Weakness of left upper itpjnsvia84/17/2024Left upper extremity vaugredz64/17/2024Herniation of cervical intervertebral disc with lafxilypooxdg41/17/2024ecreased testosterone level06/24/2023egeneration of lumbosacral intervertebral disc06/24/2023iabetes mellitus without complication 06/24/20239181Hprguxtioinxj95/12/2023Impotence of organic xodcut1006/24/2023Lateral nfdxewtnhxlvi04/12/2023Lumbar idhhyanfkykor51/12/2023Systolic ilnohu03 Unspecified inflammatory spondylopathy, lumbar lkoxar0506/24/2023ardiovascular stress test /09/2023Chest tadyfvezjc68/09/2023ubital tunnel syndrome on right3Benign hypertensive cardiomyopathy with heart failure 3Chronic combined systolic and diastolic congestive heart failure, NYHA class Overview (10/15/2024): EF 45-50% with mild DD Diastolic dysfunction with chronic heart jzgjqfv1206/09/2023Non-ischemic yjgmqxxqklqybn30/27/2023rimary evjobxwd78/29/2023Excessive daytime sleepiness 03/11/2023ervical paraspinal muscle spasm03/11/2023Nonpsychotic mental disorder due to organic brain fzojzs3806/26/2021pinal stenosis in cervical region 10/11/2018Cervical disc sdvrolcd36/19/2018Carpal tunnel syndrome of right wrist 03/24/2018Arthritis of right acromioclavicular joint12/30/2017Other chronic pain 12/30/2017Excessive laawehtl01/06/3878Hwzsolueatvklpf70/29/2015Senile quvugglhzvlfii62/16/2015Urinary tract infectious npwwemv7306/28/2014nkle edema 05/15/2014Ulnar nerve irrelrynwb14/01/5539Khmlnxift75/27/2013Cellulitis 03/31/2013Disorder of intervertebral disc of lumbar spine12/02/2012Muscle pain 12/02/2012Foot pain10/07/2012Clouded mbiwnvetjspaj40/21/9596Nbamljx91/21/2012 Dgpsgxp6711/30/2011Chest pain11/30/20112053Iohmjnsj33/17/2011Upper respiratory oghapqmll90/25/2011Joint pain09/03/2009Hypertensive nvuichfv47/05/2009Capillary beiwuensyl71/15/2008Diabetes /11/4772Ebxdptkq93/21/2007nxiety qhrtahqv64/29/2006Impingement syndrome of shoulder podyts8501/25/2003Obstructive sleep apnea11/06/2002History of brqzyxqqe82/29/1998 Encounters DateTypeDepartmentCare NoepQqtvkqxvjgm25/31/2025 2:40 PM EDTOffice Visit [facility] [address] [place] [address] Heather Miguel NP Cervical disc disorder (Primary Dx); Excessive daytime sleepiness; Obstructive sleep apnea; Intractable chronic migraine with aura with status migrainosus; Primary narcolepsy with cataplexy (HCC)07/13/2025amboo flowsheet [facility] [address] [place] [address] Heather Miguel NP 07/13/20252711Vznvun67/09/2025Telephone [facility] [address] [place] [address] Radha Wright MA from Last 3 Months Family History Medical HistoryRelationNameCommentsDiabetesFatherGlaucomaMotherRelationName StatusCommentsFatherAliveMotherAlive Social History Tobacco UseTypesPacks/DayYears UsedDateSmoking Tobacco: NeverSmokeless Tobacco: Never Tobacco Cessation:Counseling Given: Not Answered Alcohol UseStandard Drinks/WeekCommentsNot Currently0 (1 standard drink = 0.6 oz pure alcohol)Sex and Gender InformationValueDate RecordedSex Assigned at Not on fileLegal WplVyvn8411/25/2022 7:12 PM EDTGender IdentityNot on fileSexual OrientationNot on file Last Filed Vital Signs Vital SignReadingTime TakenCommentsBlood Rhcrdumr703/6810 3:09 PM EDT Nmgcg00339/23/2025 11:03 AM EDTTemperature--Respiratory Rate--Oxygen Saturation- -Inhaled Oxygen Concentration--Gzaath148 kg (272 lb)07/13/2025 3:09 PM EDTHeight 188 cm (6' 2 )07/13/2025 3:09 PM EDTBody Mass Index34.9207/13/2025 3:09 PM EDT Plan of Treatment DateTypeDepartmentCare Team (Latest Contact Info)Qqrpnpueoht93/23/2026 1:20 PM ESTOffice Visit [facility] [address] [facility] [address] [place] [address] Christiano Geiger MD [address] [facility] [address] [place] [address] Health MaintenanceDue DateLast DoneCommentsCT Rnjqowjnghsb34/21/1970Colonoscopy 1969Colorectal Cancer Qmnwlnqxq54/21/1970FIT-DNA1969FIT1969 FOBT1969 6397Quyaeyeklhevo33/21/1970COVID-19 Vaccine ( season) 512/02/2021, 12/24/2020, 12/02/2020Influenza VaccineCompleted 07/10/2025, 07/07/2024, 07/06/2023, Additional history existsPneumococcal Vaccine: Pediatrics (0 to 5 Years) and At-Risk Patients (6 to 64 Years)Aged Out No longer eligible based on patient's age to complete this topic Insurance * Guarantor: Alden Garces TypeRelation to PatientDate of BirthPhone Billing AddressPersonal/PlpqenBvmf08/21/[address] [address] Care Teams Team MemberRelationshipSpecialtyStart DateEnd Date Caden Mendez MD [address] [place] [address] PCP - GeneralFamily Bwsqahzi54/31/25
--- OUTSIDE RECORDS SUMMARY | 2025-08-21 03:35 | XMS_ITS | Clinical Summary ---
Author Organization [facility] Address [address] [place] [address] Care Team Providers Care Food Technology Teacher Name Role Phone Caden Mendez MD Primary Care Provider [phone] Christiano Geiger MD Unavailable [phone] Trey Vallejo DPM Unavailable [phone] Allergies No known active allergies Medications MedicationSigDispense [...] ProblemNoted DateDiagnosed DateCellulitis of left leg10/09/2024Left leg detjuherfc59/26/2025 Assessment & Plan (10/08/2024 7:47 AM EST): Continue vanco and zosyn Ortho following Will get blood cultures Open wound of left great toe10/08/2024 Assessment & Plan (10/08/2024 8:36 AM EST): Will consult wound care HTN (hypertension)09/24/2024 Assessment & Plan (10/08/2024 7:47 AM EST): Continue modafinil, coreg PATEL (obstructive sleep apnea)09/24/2024Gastroesophageal reflux ntaadiy2809/24/2024 Obese09/24/2024Fall at home, initial ehodqvxbk29/11/2025losed fracture of right fibula and tibia09/23/2024 Assessment & Plan (10/08/2024 7:47 AM EST): Ortho following, concern for possible infection Admit to med surg Activity orders per ortho with LLE Cardiac diet Will get labs this morning and follow up on results Daily bmp and cbc to monitor kidney function, electrolytes, hgb and wbc Case will be discussed with attending physician Non-ischemic xctoiwhjipeomo89/27/2023iastolic dysfunction with chronic heart hudsitn9506/09/2023enign hypertensive cardiomyopathy with heart uwphqil5206/09/2023 Chronic combined systolic and diastolic congestive heart failure, NYHA class 2 06/09/2023 Overview (06/09/2023): EF 45-50% with mild DD Assessment & Plan (10/08/2024 7:47 AM EST): Not in exacerbation Continue furosemide, coreg, asa Anxiety yczaduwn53/29/2006 Assessment & Plan (10/08/2024 7:47 AM EST): Continue citalopram, clonazepam Social History Tobacco UseTypesPacks/DayYears UsedDateSmoking Tobacco: NeverSmokeless Tobacco: Never Tobacco Cessation:Counseling Given: Not Answered Alcohol UseStandard Drinks/WeekCommentsYes0 (1 standard drink = 0.6 oz pure alcohol)[facility]ly[facility] UtilitiesAnswerDate RecordedIn the past 12 months has the [employer], [employer], or water [facility] threatened to shut off services in your [...] were you homeless or living in a mcfp (including now)? No10/08/2024Hunger Vital SignAnswerDate RecordedWithin the past 12 months, you worried that your food would run out before you got the money to buymore.Never true10/08/2024Ran Out of Food in the Last YearNot on file10/08/2024Sex and Gender InformationValueDate RecordedSex Assigned at EhzpdQrez03/11/2025 11:46 AM ESTLegal EeuGyte1803/11/2022 10:17 PM EDTGender KslyyqwtCszh97/11/2025 11:46 AM ESTSexual OrientationChoose not to pyxbwvwh22/11/2025 11:46 AM EST Last Filed Vital Signs Vital SignReadingTime TakenCommentsBlood Bgnpnajx086/8810/11/2024 6:26 AM EST Kucfc4304/29/2025 6:26 AM EIUQlwgjwdhzwb51.7 ??C (98.1 ??F)10/11/2024 6:26 AM ESTRespiratory Oqwd674410/11/2024 6:26 AM ESTOxygen Cbjvdnthcx07%10/11/2024 6:26 AM ESTInhaled Oxygen Concentration--Tqfdkq479 kg (231 lb 7.7 oz)10/10/2024 6:57 AM TESOtujgh223 cm (6' 2 )10/08/2024 5:58 AM ESTBody Mass Index29.72010/08/2024 5:58 AM EST Plan of Treatment Health MaintenanceDue DateLast DoneCommentsCT Ykszzmesyqms03/21/1970Colonoscopy 1969Colorectal Cancer Cfmvyxjsp86/21/1970Diabetes: Hemoglobin A1C 1969FIT-DNA1969FIT1969FOBT1969 4438Ikrozgxctpber29/21/1970 Diabetes: Retinopathy Bpsiiehvd38/21/1980Depression Jwqiuotkz31/21/1982Diabetes: Urine Protein Yfukthtxd12/21/1989Hepatitis B Vaccines (1 of 3 - 19+ 3-dose series)1988Pneumococcal Vaccine: Pediatrics (0 to 5 Years) and At-Risk Patients (6 to 64 Years) (1 of 2 - PCV)1988Adult Aomfpbh7910/03/1991Zoster Vaccines (1 of 2)2019COVID-19 Vaccine ( season)2025 [...] 09/24/2024 by Sandrine Field [facility]: TztobKiucfiu47.043.145S / / [id number] Implanted:Qty: 1 on 09/24/2024 by Sandrine [facility]: [id number] / / [id number] Implanted:Qty: 1 on 09/24/2024 by Sandrine Field [facility]: [id number] / / [id number] Implanted:Qty: 1 on 09/24/2024 by Sandrine Field [facility]: [id number] / / [id number] Implanted:Qty: 1 on 09/24/2024 by Sandrine Field [facility]: [id number] / / [id number] Insurance Advance Directives * Full Code (Latest Code Status on File) Date ActivatedDate InactivatedComments10/08/2024 7:17 AM10/11/2024 4:47 PM * Full Code Date ActivatedDate InactivatedComments09/23/2024 1:50 PM09/28/2024 8:43 PM Care Teams Team MemberRelationshipSpecialtyStart DateEnd Caden Mendez MD [address] [facility] [place] [place] [address] PCP - General09/23/24 Christiano Geiger MD [address] [facility] [address] [address] 10/11/24 Trey Vallejo DPM Address: [address] [place] [address] [place] [address] Podiatr10/11/24
--- OUTSIDE RECORDS SUMMARY | 2025-08-21 03:36 | XMS_ITS | CCD ---
Author Organization [facility] Care Team Providers Care Delivery Agent Name Role Phone UNKNOWN, PROVIDER Admitting Unavailable UNKNOWN, PROVIDER Attending Unavailable VENUS JAEGER Referring Unavailable VENUS JAEGER Primary Care Unavailable CT Procedure Practitioner Unavailab le UNKNOWN, PROVIDER Surgeon Unavailable CT Procedure Practitioner Unavailab le SANDRA BILL Surgeon Unavailable UNKNOWN, PROVIDER Admitting Unavailable UNKNOWN, PROVIDER Attending Unavailable VENUS JAEGER Referring Unavailable VENUS JAEGER Primary Care Unavailable CT Procedure Practitioner Unavailab [...] Provider Venus Jaeger MD Primary Care Provider [phone] Yoni MAGANA, Trey Smith Attending Provider [phone] MARIANNA SUAREZ Referring Unavailable SUYAPA, SHIN Referring [...] [phone] Venus Jaeger MD Primary Care Provider [phone] aJmeel Coats DO Attending Provider Bonnie Ernandez MD Attending Provider Trey Vallejo Attending Unavailable Trey Vallejo Admitting Unavailable Bonnie Ernandez Attending Unavailable Bonnie Ernandez Admitting Unavailable Jameel Coats Attending Unavailable Jameel Coats Admitting Unavailable Venus Jaeger Primary Care Unavailable Venus Jaeger MD Primary Care Provider [phone] RUBÉN GEIGER Attending Unavailable RUBÉN GEIGER Attending Unavailable RUBÉN GEIGER Attending Unavailable HEATHER RAINEY Attending Unavailab le Allergies Allergy ClassificationReported Allergen(s)Allergy TypeDate of OnsetReaction(s) Facility (1 source)AspartameDrug Tprsjcj16-34-5707Pbq [facility] (1 source)avoid; Translations: [Unknown]Propensity to adverse reactions (disorder)82-40-8204Qds [facility] (1 source)vitamin B12; Translations: [cyanocobalamin]Drug AllergyUnknown (qualifier value)[facility] (1 source)Acetaminophen / HYDROcodoneDrug AllergyThe [facility] (1 source)CorticosteroidsDrug allergy (disorder)[facility] (1 source)fentaNYLDrug AllergyThe [facility] (1 source)Misc-Food; Translations: [Misc-Food]Food allergy (disorder)[facility] (20 sources)fentaNYLDrug Aplrrku07-47-3382ZuqjywkSMEV Healthcare (20 sources)HYDROcodoneDrug Gfxxepp63-62-5055ZvovlqaYIHQ Healthcare (20 sources)Morphine And CodeineDrug Tlisudv49-98-5835GmlgqkrCLBX Healthcare (20 sources)OtherPropensity to adverse zxewtxhkm72-34-5184GHYD Healthcare (1 source)CorticosteroidsDrug allergy (disorder)67-35-2200LhbobdmciSelect [facility] Medications Current Medications MedicationDrug Class(es)DatesSig (Normalized)Sig (Original)acetaminophen 325 mg / HYDROcodone bitartrate 5 mg oral tablet (20 sources)Opioid AgonistStart: 57-59-7703GQWDQspbuih-acetaminophen ([place]) 5- 325 MG tablet 03/20/2024 Activeamantadine hydrochloride 100 mg oral tablet (20 sources)Influenza A M2 Protein InhibitorStart: 05-07-2025 End: 30-02-1982mymm 1 tablet by mouth in the morningamantadine (Symmetrel) 100 MG tablet Indications: Excessive daytime sleepiness , Primary insomnia TAKE 1 TABLET (100 MG) BY MOUTH IN THE MORNING AND AT NOON 60 tablet 11 05/16/2025 05/16/2026 ActiveStart: 04-10-2024 End: 94-37-8297qcyx 1 tablet by mouth in the morningamantadine (Symmetrel) 100 MG tablet Indications: Excessive daytime sleepiness , Primary insomnia Take 1 tablet (100 mg) by mouth in the morning and at noon 180 tablet 3 04/10/2024 04/10/2025 Activeaspirin 81 mg delayed release oral tablet (20 sources)Platelet Aggregation Inhibitor, Nonsteroidal Anti-inflammatory Drug Start: 75-79-7433ypae 1 tablet by mouth once dailyASPIRIN 81 MG chewable tablet Chew 81 mg in the morning. ActiveB-D 3CC LUER-SAYRA SYR 23GX1 23G X 1 3 ML misc (20 sources)Start: 79-41-2682S-D 3CC LUER-SAYRA SYR 23GX1 23G X 1 3 ML misc USE 1 SYRINGE INTRAMUSCULARLY ONCE A WEEK 05/18/2023ctiveBiotin (20 sources)Start: 31-06-7925EPOGJL BIOTIN Start Date: 02/26/22 Status: Ordered Start: 35-47-0134gyua 1 tablet by mouth once dailycelecoxib 100 mg oral capsule (20 sources)Nonsteroidal Anti-inflammatory DrugCeleBREX 100 MG capsule 1 (one) time each day at the same time Activecholecalciferol 0.125 mg oral capsule (20 sources)Vitamin DStart: 41-11-6754kwfrdwnrwmumtpi (Vitamin D-3) 125 MCG (5000 UT) capsule 03/15/2024 ActiveclonazePAM 1 mg oral tablet (20 sources)BenzodiazepineStart: 03-27-2024 End: 53-44-2613cfyl 1 tablet by mouth at bedtimeclonazePAM (KlonoPIN) 1 MG tablet Indications: Primary insomnia Take 1 tablet (1 mg) by mouth at bedtime 30 tablet 2 07/04/2024 ActiveStart: 93-42-2425YhilwkyRFP 0.5 mg Tab Refills(s) 0 Start Date: 02/26/22 Status: OrderedStart: 21-06-5615cdkp 2 tablets by mouth at bedtimeStart: 22-31-4207ouej 1 mg by mouth at bedtimeClonazepam Active 0.05 mg/kg PO Bedtime May 14, 2018 12:00amdiazePAM 5 mg oral tablet (5 sources)BenzodiazepineStart: 69-61-0216cbjv 1 tablet by mouth at bedtime diclofenac sodium 75 mg delayed release oral tablet (5 sources)Nonsteroidal Anti-inflammatory DrugStart: 05-38-3116yoqe 1 tablet by mouth twice dailydoxazosin 8 mg oral tablet (20 sources)alpha-Adrenergic BlockerStart: 05-08-8648kegqzfvgh 8 mg oral tablet Refills(s) 0 Start Date: 02/26/22 Status: Ordereddoxepin hydrochloride 10 mg oral capsule (20 sources)Tricyclic AntidepressantStart: 83-04-7701yppjtax 10 mg Cap Refills(s) 0 Start Date: [...] 600 mg oral tablet (20 sources)Anti-epileptic AgentStart: 59-35-0815jorg 1 tablet by mouth three times dailyglycopyrrolate 1 mg oral tablet (20 sources)Start: 77-04-2025apxu 1 tablet by mouth in the morningglycopyrrolate (Robinul) 1 MG tablet Take 1 mg by mouth in the morning and 1 mg before bedtime. 01/22/2023 ActiveStart: 11-22-7950qewhgdfqmknspu 1 mg oral tablet Refills(s) 0 Start Date: 02/26/22 Status: OrderedhydrOXYzine pamoate 25 mg oral capsule (20 sources)AntihistamineStart: 15-54-6979uoeq 1 capsule by mouth once daily at bedtimehydrOXYzine pamoate (Vistaril) 25 MG capsule Indications: Primary insomnia TAKE ONE CAPSULE BY MOUTH ONCE DAILY AT BEDTIME 30 capsule 11 05/11/2024 Activelisinopril 10 mg oral tablet (5 sources)Angiotensin Converting Enzyme InhibitorStart: 15-41-2591qzne 1 tablet by mouth once dailymeclizine hydrochloride 25 mg chewable tablet (20 sources)AntiemeticMeclizine HCl 25 MG chewable tablet Chew 25 mg 1 (one) time each day at the same time. Activemelatonin 10 mg oral capsule (20 sources)Start: 07-14-2023 End: 48-71-5312jisu 1 capsule by mouth at bedtimeMelatonin 10 MG capsule Indications: Primary insomnia Take 10 mg by mouth at bedtime 90 capsule 3 07/04/2025 ActiveMultiple Vitamins-Minerals (Multi For Him 50+) tablet (20 sources)Multiple Vitamins-Minerals (Multi For Him 50+) tablet as directed Orally Activeomeprazole 40 mg delayed release oral capsule (5 sources)Proton Pump InhibitorStart: 63-81-6708pldc 1 capsule by mouth twice dailyondansetron 4 mg oral tablet (20 sources)Serotonin-3 Receptor AntagonistStart: 11-14-2024 End: 47-93-8290uesa 2 tablets by mouth every eight hours for nauseaondansetron (Zofran) 4 MG tablet Indications: Projectile vomiting with nausea Take 2 tablets (8 mg)by mouth every 8 (eight) hours if needed for nausea or vomiting 30 tablet 3 11/14/2024 12/14/2024 ActiveStart: 28-47-0362bzbnlvfthrl ODT (Zofran-ODT) 4 MG disintegrating tablet 03/15/2024 ActiveStart: 72-97-6000zqtrevtjnbz (Zofran) 4 MG tablet Take 4 mg by mouth if needed. ActiveOXcarbazepine 300 mg oral tablet (20 sources)Anti-epileptic Agenttake 1 tablet by mouth at bedtimeOXcarbazepine (Trileptal) 300 MG tablet Take 300 mg by mouth at bedtime. Activeoxybates, calcium, magnesium, potassium and sodium, (Xywav) 500 MG/ML solution (2 sources)Start: 04-04-2025 End: 70-87-1407davt 3.75 g by mouth at bedtimeoxybates, calcium, magnesium, potassium and sodium, (Xywav) 500 MG/ML solution Indications: Narcolepsy cataplexy syndrome (HCC) Take 3.75 g by mouth at bedtime 225 mL 2 04/04/2025 05/04/2025 Activepotassium chloride 10 meq extended release oral tablet (20 sources)Start: 29-81-3185xgwl 1 tablet by mouth at mealtimepotassium chloride CR (Klor-Con) 10 MEQ ER tablet Take 10 mEq by mouth in the morning. Take with food. . 02/22/2023 Activesennosides, intermediate 8.6 mg oral tablet (20 sources)Start: 37-65-3179urkfb (Senokot) 8.6 MG tablet 03/15/2024 Active simvastatin 20 mg oral tablet (20 sources)HMG-CoA Reductase InhibitorStart: 37-61-5023xkzp 1 tablet by mouth once dailySUMAtriptan 100 mg oral tablet (20 sources)Serotonin-1b and Serotonin-1d Receptor AgonistStart: 22-70-2052qekz 1 tablet by mouth onceSUMAtriptan (Imitrex) 100 MG tablet Take 100 mg by mouth 1 (one) time if needed. Active1 ml testosterone cypionate 200 mg/ml injection (20 sources)Androgentestosterone cypionate (Depo-Testosterone) 200 MG/ML injection Inject 200 mg into the shoulder, thigh, or buttocks every 14 (fourteen) days. Activethiamine 100 mg oral tablet (15 sources)Start: 07-05-2024 End: 78-66-8019dkgu 1 tablet by mouth once dailythiamine (Vitamin B-1) 100 MG tablet Indications: Excessive daytime sleepiness Take 1 tablet (100 mg) by mouth Daily 30 tablet 11 07/05/2024 07/05/2025 ActivetiZANidine 4 mg oral capsule (20 sources)Central alpha-2 Adrenergic AgonistStart: 29-12-5148zzmr 1 capsule by mouth at bedtimetake 1 tablet by mouth at bedtimetiZANidine (Zanaflex) 4 MG tablet Take 4 mg by mouth at bedtime. ActiveVit D3-Folic Wwgi-C1-F8-B12 (1 source)Start: 48-91-5866hukf 1 tablet by mouth once dailyVit D3-Folic Pjek-V3-K0-B12 Active 1 TAB PO Daily May 14, 2018 12:00amVit D3-Folic Bjik-D4-Q2-B12 2,000-800-0.32 unit-mcg-mg Tablet (4 sources)Start: 51-71-7211tshb 1 tablet by mouth once dailyStart: 05-14-2018 take 1 tablet by mouth once dailyVit D3-Folic Wicn-S9-J4-B12 2,000-800-0.32 unit-mcg-mg Tablet Active 1 TAB PO Daily May 13, 2018 11:00pm Completed/Discontinued Medications MedicationDrug Class(es)DatesSig (Normalized)Sig (Original)apixaban 5 mg oral tablet (3 sources)Factor Xa InhibitorStart: 92-89-8853Hydvetni (Eliquis) 5 mg tablet Discontinued MG PO May 07, 2025 12:00amcarvedilol 25 mg oral tablet (20 sources)alpha-Adrenergic Jorge L, beta-Adrenergic BlockerStart: 02-26-2022 Carvedilol 25 mg tablet Discontinued MG PO May 07, 2025 12:00amStart: 56-77-2018zped 1 tablet by mouth twice dailycitalopram 40 mg oral tablet (20 sources)Serotonin Reuptake InhibitorStart: 25-19-5933Jblomkfeos 40 mg tablet Discontinued MG PO May 07, 2025 12:00amStart: 73-14-5267SvbdPD 20 MG tablet 1 (one) time each day at the same time. 06/02/2023 Activefurosemide 20 mg oral tablet (20 sources)Loop DiureticStart: 27-47-5240Fxweafqict 20 mg tablet Discontinued MG PO May 07, 2025 12:00ammodafinil 200 mg oral tablet (20 sources)Sympathomimetic-like AgentStart: 05-07-2025 End: 11-94-7783rjxt 1 tablet by mouth in the morningmodafinil (Provigil) 200 MG tablet Indications: Excessive daytime sleepiness , Obstructive sleep apnea TAKE 1 TABLET (200 MG) BY MOUTH IN THE MORNING AND AT NOON 60 tablet 2 05/16/2025 07/13/2025 Discontinued (Reorder)Start: 04-10-2024 End: 00-76-7334vosh 1 tablet by mouth in the morningmodafinil (Provigil) 200 MG tablet Indications: Excessive daytime sleepiness , Obstructive sleep apnea Take 1 tablet (200 mg) by mouth in the morning and at noon 180 tablet 01/03/2025 ActiveStart: 31-35-2609hntxqeiku 200 mg Tab Refills(s) 0 Start Date: 02/26/22 Status: Orderedpantoprazole 40 mg delayed release oral tablet (20 sources)Proton Pump InhibitorStart: 70-89-5205Kqftrueazyaf 40 mg tablet,delayed release (DR/EC) Discontinued MG PO May 07, 2025 12:00am Problems Active Problems Problem ClassificationProblemDateDocumented DateEpisodic/ChronicAnxiety disorders (20 sources)Anxiety disorder, unspecified; Translations: [Anxiety disorder] Onset: 542078-89-6952XjszniaJkkrwmyxe and vision defects (1 source)Unspecified visual loss; Translations: [UNSPECIFIED VISUAL LOSS]Onset: 08-98-6749IywtaftOzjipqtoqd heart failure; nonhypertensive (20 sources)Chronic combined systolic and diastolic heart failure; Translations: [Chronic combined systolic (congestive) and diastolic (congestive) heart failure]Onset: 038183-49-3750GevvuooGxuhqvuu, dementia, and amnestic and other cognitive disorders (20 sources)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; Translations: [Unspecified mental disorder due to known physiological condition]Onset: 836716-47-9203KowjhmuSgugsrye mellitus without complication (20 sources)Type 2 diabetes mellitus without complications; Translations: [Diabetes mellitus without complication]Onset: hronic Disorders of lipid metabolism (1 source)Pure hypercholesterolemia, unspecified; Translations: [PURE HYPERCHOLESTEROLEMIA UNSPEC]Onset: 58-28-2399CvzczmeU Codes: Place of occurrence (2 sources)Unspecified place in unspecified non-institutional (private) residence as the place of occurrence of the external cause; Translations: [Unspecified place in unspecified non-institutional (private) residence as the place of occurrence of the external cause]Onset: 88-42-7709LqubiihkUopligxbmq disorders (1 source)Gastro-esophageal reflux disease without esophagitis; Translations: [GERD WITHOUT ESOPHAGITIS]Onset: 61-67-8173WibhhngYgwqdzppu hypertension (20 sources)Essential (primary) hypertension; Translations: [Hypertensive disorder]Onset: 275351-84-5745YervzcpInbokdcl; including migraine (20 sources)Migraine; Translations: [Migraine, unspecified, not intractable, without status migrainosus]Onset: 921098-08-2784UuvgyfxYqhbwmwznzu of prostate (1 source)Benign prostatic hypertrophy without outflow obstruction; Translations: [Benign prostatic hyperplasia without lower urinary tract symptoms]Onset: 24-65-0438VoiclyrYbccynihugha with complications and secondary hypertension (15 sources)Hypertensive heart failure; Translations: [Hypertensive heart disease with heart failure]Onset: 121923-70-8948GfgrnfjYcjmxuwoknjbw mental health disorders (20 sources)Primary insomnia; Translations: [Primary insomnia]Onset: 03-11-2023 38-83-8619OthlewrYvbr disorders (1 source)Major depressive disorder, single episode, unspecified; Translations: [MARITZA DEPRESS D/O SINGLE EPIS UNS]Onset: 79-51-9650RohtsynEmwc disorders (1 source)Mood disorders; Translations: [DEPRESSION UNSPECIFIED]Onset: 00-76-2579Fwxkxw and vomiting (1 source)Projectile vomiting; Translations: [Projectile vomiting]11-14-2024 EpisodicOsteoarthritis (20 sources)Unspecified osteoarthritis, unspecified site; Translations: [Arthritis of right acromioclavicular joint]Onset: hronic Other aftercare (1 source)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; Translations: [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 ASPIRIN]Onset: 49-10-2424FdzskrncYcuhu aftercare (1 source)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; Translations: [OTH 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 CURRENT DRUG THERAPY]Onset: 36-76-4444VjujmatjMjblj bone disease and musculoskeletal deformities (3 sources)Hypertrophy of bone; Translations: [Hypertrophy of bone, unspecified tibia and fibula]97-82-2337SxmeqmdzZcikv bone disease and musculoskeletal deformities (1 source)Hypertrophy of bone, unspecified tibia and fibula; Translations: [Hypertrophy of bone, unspecified tibia and fibula]Onset: 34-51-7398Riqviqxq Other connective tissue disease (3 sources)Pain in right forearm; Translations: [PAIN IN RIGHT FOREARM]Onset: 46-68-1006WhhoyiqoCitdq connective tissue disease (1 source)Arthrodesis status; Translations: [ARTHRODESIS STATUS]Onset: 22-16-9055JwwudoamBvkjy connective tissue disease (2 sources)Muscle weakness of upper limb; Translations: [Other symptoms and signs involving the musculoskeletal system]05-61-4390HvanumshTahhmsd on above: Problem List clean-up per request of Phys. EHR CmteOther connective tissue disease (3 sources)Pain in right lower limb; Translations: [Pain in right leg]05-07-2025 EpisodicOther diseases of veins and lymphatics (1 source)Varicocele; Translations: [Scrotal varices]Onset: 37-61-2300Abuictli Other ear and sense organ disorders (1 source)Unspecified hearing loss, unspecified ear; Translations: [UNS HEARING LOSS UNSPECIFIED EAR]Onset: 83-54-5527CmiplqfRreoo endocrine disorders (4 sources)Testicular hypofunction; Translations: [TESTICULAR HYPOFUNCTION] Onset: 31-13-7772IlzwavbFklcw inflammatory condition of skin (1 source)Psoriasis, unspecified; Translations: [PSORIASIS UNSPECIFIED]Onset: 03-50-3878QwkgnbrEuxwl injuries and conditions due to external causes (1 source)Unspecified injury of head, initial encounter; Translations: [UNSPECIFIED INJURY HEAD INITIAL ENC]Onset: 13-48-9608OfqaxuigKvwmx male genital disorders (20 sources)Secondary erectile dysfunction; Translations: [Male erectile dysfunction, unspecified]Onset: 218766-21-6983VmqhqccOnpsp male genital disorders (1 source)Hydrocele of testis; Translations: [Hydrocele, unspecified]Onset: 62-39-6912WfzymhucIvbdh nervous system disorders (1 source)Narcolepsy without cataplexy; Translations: [NARCOLEPSY WITHOUT CATAPLEXY]Onset: 95-62-3047CuzujhlQeqaw nervous system disorders (1 source)Other chronic pain; Translations: [OTHER CHRONIC PAIN]Onset: 37-01-7420AmhewwjSyvhp nervous system disorders (1 source)Polyneuropathy, unspecified; Translations: [POLYNEUROPATHY UNSPECIFIED]Onset: 03-84-1275IvwdddxEdlgv nervous system disorders (20 sources)Carpal tunnel syndrome of right wrist; Translations: [Carpal tunnel syndrome, right upper limb]Onset: 144325-84-5992LsuskvxSxplh nervous system disorders (20 sources)Lesion of ulnar nerve, right upper limb; Translations: [Lesion of ulnar nerve]Onset: 304870-90-6027PezxqypGjuwz nervous system disorders (20 sources)Chronic pain; Translations: [Other chronic pain]Onset: 12-30-2017 04-21-1343NuayqieXyswz nervous system disorders (20 sources)Ulnar nerve entrapment; Translations: [Lesion of ulnar nerve, unspecified upper limb]Onset: 018288-16-5264UcsqzetUkwav nervous system disorders (20 sources)Cataplexy and narcolepsy; Translations: [Narcolepsy with cataplexy] Onset: 868271-21-7450WgadxeuByzrd nutritional; endocrine; and metabolic disorders (15 sources)Obesity; Translations: [Obesity, unspecified]Onset: 09-24-2024 87-17-1711DucbvswFmfg-; endo-; and myocarditis; cardiomyopathy (except that caused by tuberculosis or sexually transmitted disease) (15 sources)Cardiomyopathy; Translations: [Other cardiomyopathies]Onset: 305454-04-9207RhkyrfoBisiiybe codes; unclassified (1 source)Sleep apnea, unspecified; Translations: [SLEEP APNEA UNSPECIFIED] Onset: 42-92-4578ZamvrjeAjgbdyyp codes; unclassified (20 sources)Daytime somnolence; Translations: [Other hypersomnia]Onset: 282925-10-9303YhabkceZkuidyvi codes; unclassified (20 sources)Obstructive sleep apnea syndrome; Translations: [Obstructive sleep apnea (adult) (pediatric)]Onset: 925752-86-8737YwcoocuDnprjahw codes; unclassified (2 sources)Obstructive sleep apnea (adult) (pediatric); Translations: [Obstructive sleep apnea (adult) (pediatric)]Onset: 38-72-1680IxpwudzMatgncyc codes; unclassified (5 sources)Other hypersomnia; Translations: [Hypersomnia, unspecified]Onset: 610441-25-1469BcntrwiOtpohvwkrlf; intervertebral disc disorders; other back problems (20 sources)Cervical disc disorder; Translations: [Cervical disc disorder, unspecified, unspecified cervical region]Onset: hronic Superficial injury; contusion (2 sources)Contusion of right forearm, initial encounter; Translations: [Contusion of other part of head, initial encounter]Onset: 26-43-5711Riqvbclf Unclassified (1 source)CONTACT W/AND (SUSP) EXPOS COVID-19; Translations: [CONTACT W/AND (SUSP) EXPOS COVID-19]Onset: 01-19-2022 Past or Other Problems Problem ClassificationProblemDateDocumented DateEpisodic/ChronicComa; stupor; and brain damage (20 sources)Clouded consciousness; Translations: [Stupor]Onset: 03-03-2012 15-48-4981YeqddzctA Codes: Fall (18 sources)Unspecified fall, initial encounter; Translations: [Fall in home] Onset: 75-03-0308OrqzznneE Codes: Natural/environment (1 source)Exposure to other specified factors, initial encounter; Translations: [EXPOSURE OTHER SPEC FACTORS INITIAL]Onset: 85-41-2810RwyfgjqtHywobnyv of lower limb (20 sources)Unspecified fracture of shaft of right tibia, initial encounter for closed fracture; Translations: [Unspecified fracture of shaft of right fibula, initial encounter for closed fracture]Onset: 48-19-2633KnzdpegtYsydanzsa and duodenitis (20 sources)Gastritis; Translations: [Gastritis, unspecified, without bleeding] Onset: 072081-80-7172ContajprQhjxj valve disorders (20 sources)Systolic murmur; Translations: [Cardiac murmur, unspecified]Onset: 383182-55-9050CeynvwleJzpbnbkeqoxqh and screening for infectious disease (1 source)Encounter for immunization; Translations: [ENCOUNTER FOR IMMUNIZATION] Onset: 13-06-2438BrildlsbHyqywkqigifm conditions of male genital organs (4 sources)Inflammatory disorders of scrotum; Translations: [INFLAMMATORY DISORDERS OF SCROTUM]Onset: 20-30-6812MiocbwjhFueczya and fatigue (20 sources)Fatigue; Translations: [Other fatigue]Onset: EpisodicNoninfectious gastroenteritis (20 sources)Gastroenteritis; Translations: [Noninfective gastroenteritis and colitis, unspecified]Onset: 866739-94-1111XganclxsCzipxmdeqph chest pain (20 sources)Chest discomfort; Translations: [Other chest pain]Onset: 11-30-2011 19-29-2348NumndwnwAxdf wounds of extremities (19 sources)Puncture wound without foreign body, left foot, initial encounter; Translations: [Open wound of left great toe]Onset: 39-38-1515UidrszefUwyxi circulatory disease (20 sources)Capillary hemangioma; Translations: [Nevus, non-neoplastic]Onset: 134045-42-6208AhkodojnCoaeb connective tissue disease (20 sources)Spasm of cervical paraspinous muscle; Translations: [Other muscle spasm]Onset: 993439-95-0786YqtedoxsZnfkz connective tissue disease (20 sources)Bursitis; Translations: [Bursopathy, unspecified]Onset: 02-27-2011 86-90-4704UrrwionfKlrdy connective tissue disease (20 sources)Foot pain; Translations: [Pain in unspecified foot]Onset: 10-07-2012 36-97-8635NwqpthhdOzanu connective tissue disease (20 sources)Muscle pain; Translations: [Myalgia, unspecified site]Onset: 379426-20-3703SbpyyfbtTlhsw connective tissue disease (20 sources)Impingement syndrome of shoulder region; Translations: [Impingement syndrome of unspecified shoulder]Onset: 617049-85-5761HofyocjyLygas connective tissue disease (20 sources)Lateral epicondylitis; Translations: [Lateral epicondylitis, unspecified elbow]Onset: 543116-68-3853QgthqiadWzdcp connective tissue disease (20 sources)Other symptoms and signs involving the musculoskeletal system; Translations: [Other musculoskeletalsymptoms referable to limbs]Onset: 368365-46-3173LmsemipqItuidzc on above:Problem List clean-up per request of Phys. EHR CmteOther lower respiratory disease (20 sources)Dyspnea; Translations: [Dyspnea, unspecified]Onset: 11-30-2011 55-29-7397RvonlxrzJonbo nervous system disorders (20 sources)Numbness of upper limb; Translations: [Anesthesia of skin]Onset: 299485-25-5456ZiukwzdrScussxf on above:Problem List clean-up per request of Phys. EHR CmteOther non-traumatic joint disorders (20 sources)Ankle edema; Translations: [Effusion, unspecified ankle]Onset: 054325-16-7912BzgxjtwzSwtha non-traumatic joint disorders (20 sources)Joint pain; Translations: [Pain in unspecified joint]Onset: 902846-31-7354WulcwknhCufqk screening for suspected conditions (not mental disorders or infectious disease) (20 sources)Encounter for screening for malignant neoplasm of prostate; Translations: [Elevated prostate specific antigen [PSA]]Onset: 03-13-2022 EpisodicOther skin disorders (20 sources)Excessive sweating; Translations: [Generalized hyperhidrosis]Onset: 232589-99-8403FigsmqhlLfjau skin disorders (20 sources)Senile hyperkeratosis; Translations: [Actinic keratosis]Onset: 176577-60-3043LakfwdquNljba skin disorders (20 sources)Hyperhidrosis; Translations: [Generalized hyperhidrosis]Onset: 083047-49-1080JrqxyjwvLhgul upper respiratory infections (20 sources)Upper respiratory infection; Translations: [Acute upper respiratory infection, unspecified]Onset: 187340-89-0385BlfnjumxXzjh and subcutaneous tissue infections (20 sources)Cellulitis; Translations: [Cellulitis, unspecified]Onset: 03-31-2013 24-73-2395SpituiwsBkbwcjaozpt; intervertebral disc disorders; other back problems (20 sources)Cervical disc prolapse with radiculopathy; Translations: [Cervical disc disorder with radiculopathy, unspecified cervical region]Onset: 10-11-2018 15-57-6427FpylihxmQoddtrw on above:Problem List clean-up per request of Phys. EHR CmteUrinary tract infections (20 sources)Urinary tract infectious disease; Translations: [Urinary tract infection, site not specified]Onset: [id number] Results Test NameValueInterpretationReference RangeFacilityCT lower leg RT wo pool 64-50-6855HZ lower leg RT wo [facility] [place] [address] CT Scan Report Signed Patient: Matty Garces MR#: [id number] : 1970 Acct:[id number] Age/Sex: 54 / M ADM Date: 05/29/25 Loc: CT Room: Type: [facility] CLI Attending Dr: Jameel Coats DO Copies [...] Irving M.D. 05/29/2025 11:40 PM Dictation Location: [place] [address] Transcribed By: [facility] 05/29/25 2340 Dictated By: Francis rIving II, MD 05/29/25 6985 Signed By: 05/29/25 2340[facility] GroupECG 12-LEADon 51-35[place]95[place] [address] Electrocardiograph Report Signed Patient: MATTY GARCES MR#: [id number] : 1970 Acct:[id number] Age/Sex: 54 / M ADM Date: 03/05/25 Loc: MS 221-[address]: Venus Jaeger M.D. Ordering Physician: Jess Castañeda Date of Service: 03/05/25 Procedure(s): ECG 12 lead Accession Number(s): [id number] cc: The [facility] Test Date: 2025-03-05 Pat Name: MATTY GARCES Department: Room: - Gender: Male [employer]: : 1970 Requested By: [id number] Order Number: [id number] Reading MD: RAMIRO WALLS M.D. Measurements Intervals [place] Rate: 76 P: 60 CT: 178 QRS: 69 QRSD: 100 T: 46 QT: 406 QTc: 437 Interpretive Statements 1100 Sinus rhythm 0102 ARTIFACT PRESENT 9110 normal ECG Compared to ECG 09/23/2024 05:51:07 No significant changes Electronically Signed On 03-06-2025 9:29:34 EDT by RAMIRO WALLS M.D. Dictated By: RAMIRO WALLS Signed By: 03/06/2529 DD/ 06 TD/TT: Burrer Marker Axle:TBHRadiology, Radiologist, - 03/06/[address] [address] Electrocardiograph Report Signed Patient: MATTY GARCES MR#: [id number] : 1970 Acct:[id number] Age/Sex: 54 / M ADM Date: 03/05/25 Loc: MS 221-[address]: Venus Jaeger M.D. 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 Measurements Intervals [place] Rate: 76 P: 60 CT: 178 QRS: 69 QRSD: 100 T: 46 QT: 406 QTc: 437 Interpretive Statements 1100 Sinus rhythm 0102 ARTIFACT PRESENT 9110 normal ECG Compared to ECG 09/23/2024 05:51:07 No significant changes Electronically Signed On 03-06-2025 9:29:34 EDT by RAMIRO WALLS M.D. Dictated By: RAMIRO WALLS Signed By: 03/06/25928 DD/ 06 TD/TT: Burrer Marker Axle: JEWELS Packer 12-LEADOrdered By: Radiologist Radiology on 62-26-7089[facility] Work Phone: ECG 12-LEADon 83-92-4509Dozgrxxub Study observation (narrative)JEWELS LandryBASIC METABOLIC PANELon 48-92-3592Kdoxe gap [Moles/Vol]8 mmol/LNormal7-20UnFostoria City HospitalComment on above:Performed By: #### [id number] #### [facility] ([facility]) [address] [place], [place] [address]Anucyen [Mass/Vol]9.7 mg/dLNormal8.6-10.3UnFostoria City HospitalComment on above:Performed By: #### [id number] #### [facility] ([facility]) [address] [place], [place] [address]Qsxvzplt [Moles/Vol]97 mmol/UGgc81-543RiiufqfbcaFostoria City HospitalComment on above:Performed By: #### [id number] #### [facility] ([facility]) [address] [place] [address]QQ5 [Moles/Vol]35 mmol/HOhxx70-04BrbqmxwrmpFostoria City HospitalComment on above:Performed By: #### [id number] #### [facility] ([facility]) [address] [place] [address]Lxpiponyjg [Mass/Vol]1.02 mg/dLNormal0.70-1.30UnFostoria City HospitalComment on above:Performed By: #### [id number] #### [facility] ([facility]) [address] [place] [address]EDLOXSACCC FILTRATION RATE ML/MIN/1.73 SQ M.GPQHXLSSS78.8 mL/min/1.73m*2Normal>60.0UnFostoria City HospitalComment on above: Result Comment: The [facility]???s estimated glomerular filtration rate (eGFR) will no [...] affect anyone group of individuals.Performed By: #### [id number] #### [facility] ([facility]) [address] [place] [address]Dmjjppz [Mass/Vol]80 mg/vKDhfwvy46-332BqamcolpzzFostoria City HospitalComment on above:Performed By: #### [id number] #### [facility] ([facility]) [address] [place] [address]Hzfbqvmym [Moles/Vol]4.2 mmol/LNormal3.5-5.1UnFostoria City HospitalComment on above:Performed By: #### [id number] #### [facility] ([facility]) [address] [place] [address]Ipmflj [Moles/Vol]136 mmol/BRvuorc507-890EpjjxlvgywFostoria City HospitalComment on above:Performed By: #### [id number] #### [facility] ([facility]) [address] [place] [address]Hwto nitrogen [Mass/Vol]8 mg/dLNormal7-25UnFostoria City HospitalComment on above:Performed By: #### [id number] #### [facility] ([facility]) [address] [place], [place] [address]BJXN NITROGEN/CREATININE (MASS RATIO) IN SER/PLAS7.8Normal [facility]bleComment on above:Performed By: #### [id number] #### [facility] ([facility]) [address] [place], [place] [address]QVW WITH AUTO DIFFERENTIALon 62-01-9254Nombxyesj (Bld) [#/Vol] 0.06 10*3/uLNormal0.00-0.20UnFostoria City HospitalComment on above: Performed By: #### [id number] ####[facility] ([facility])[address] [place], [place] [address]Jxgrklohp/100 WBC (Bld)0.9 %Normal0.0-1.0UnFostoria City HospitalComment on above:Performed By: #### [id number] ####[facility] ([facility])[address] [place], [place] [address]Izouhsoepcp (Bld) [#/Vol]0.21 10*3/uL Normal0.00-0.50UnFostoria City HospitalComment on above:Performed By: #### [id number] ####[facility] ([facility])[address] [place] [address] Eosinophils/100 WBC (Bld)3.0 %Normal0.0-6.0UnFostoria City Hospital Comment on above:Performed By: #### [id number] ####[facility] ([facility])[address] [place], [place] [address]Uvwsfuenzcn distribution width (RBC) [Ratio]16.7 % High11.5-15.0UnFostoria City HospitalComment on above:Performed By: #### [id number] ####[facility] ([facility])[address] [place] [address] ERYTHROCYTE MEAN CORPUSCULAR HEMOGLOBIN CONCENTRATION (G/DL) BY AXUHSOAPU00.9 g/dLLow32.0-35.0UnFostoria City HospitalComment on above:Performed By: #### [id number] ####[facility] ([facility])[address] [place], [place] [address]Mluytyefvp (Bld) [Volume fraction]44.5 %Tfypzf47.0-55.0UnFostoria City HospitalComment on above:Performed By: #### [id number] ####[facility] ([facility])[address] [place], [place] [address]Zefedsqrip (Bld) [Mass/Vol]13.3 g/dL Lycqii40.0-17.0UnFostoria City HospitalComment on above:Performed By: #### [id number] ####[facility] ([facility])[address] [place] [address] Immature granulocytes (Bld) [#/Vol]0.11 10*3/uLNormal0.00-0.20UnFostoria City HospitalComment on above:Performed By: #### [id number] ####[facility] ([facility])[address] [place], [place] [address]Edyieera granulocytes/100 WBC (Bld)1.6 %High0.0-1.0UnFostoria City HospitalComment on above: Performed By: #### [id number] ####[facility] ([facility])[address] [place], [place] [address]Ugqucvknyxs (Bld) [#/Vol]0.91 10*3/uLLow1.20-4.00UnFostoria City HospitalComment on above:Performed By: #### [id number] ####[facility] ([facility])[address] [place], [place] [address]Qwfrekfvvtj/100 WBC (Bld) 12.9 %Low20.0-45.0UnFostoria City HospitalComment on above:Performed By: #### [id number] ####[facility] ([facility])[address] [place], [place] [address]RPA (RBC) [Entitic mass]26.9 pgLow27.0-33.0UnFostoria City HospitalComment on above:Performed By: #### [id number] ####[facility] ([facility])[address] [place], [place] [address]CQI (RBC) [Entitic vol]89.9 fLNormal 82.0-98.0UnFostoria City HospitalComment on above:Performed By: #### [id number] ####[facility] ([facility])[address] [place] [address] Monocytes (Bld) [#/Vol]0.65 10*3/uLNormal0.10-1.00UnFostoria City HospitalComment on above:Performed By: #### [id number] ####[facility] ([facility])[address] [place], [place] [address]Denabigtp/100 WBC (Bld)9.2 %Normal 5.0-12.0UnFostoria City HospitalComment on above:Performed By: #### [id number] ####[facility] ([facility])[address] [place] [address] Neutrophils (Bld) [#/Vol]5.11 10*3/uLNormal1.60-7.60UnFostoria City HospitalComment on above:Performed By: #### [id number] ####[facility] ([facility])[address] [place], [place] [address]Hftngemzyvj/100 WBC (Bld)72.4 %High 40.0-72.0UnFostoria City HospitalComment on above:Performed By: #### [id number] ####[facility] ([facility])[address] [place] [address]RSMX (PER 100 WBCS) BY AUTOMATED COUNT0.0 %Kuovuj3SpesfjpuggFostoria City Hospital Comment on above:Performed By: #### [id number] ####[facility] ([facility])[address] [place] [address]HMVRFWJBS (10*3/UL) IN BLOOD AUTOMATED EHTPV454 10*3/sLUvccjn425-933QeguwdssdfFostoria City HospitalComment on above: Performed By: #### [id number] ####[facility] ([facility])[address] [place], [place] [address]STD (Bld) [#/Vol]4.95 10*6/uLNormal4.20-5.70UnFostoria City HospitalComment on above:Performed By: #### [id number] ####[facility] ([facility])[address] [place] [address]BWS (Bld) [#/Vol]7.05 10*3/uLNormal4.00-10.60UnFostoria City HospitalComment on above: Performed By: #### [id number] ####[facility] ([facility])[address] [place], [place] [address]NPZBZ METABOLIC PANELon 79-51-4262Cukjc gap [Moles/Vol]9 mmol/LNormal7-20UnFostoria City HospitalComment on above:Performed By: #### [id number] #### [facility] ([facility]) [address] [place], [place] [address]Dysfiwt [Mass/Vol]9.5 mg/dLNormal8.6-10.3UnFostoria City HospitalComment on above:Performed By: #### [id number] #### [facility] ([facility]) [address] [place], [place] [address]Yywckhnz [Moles/Vol]96 mmol/AAmx34-492TjeiihgutgFostoria City HospitalComment on above:Performed By: #### [id number] #### [facility] ([facility]) [address] [place] [address]TT8 [Moles/Vol]34 mmol/WOrtr33-45KfgtlictqmFostoria City HospitalComment on above:Performed By: #### [id number] #### [facility] ([facility]) [address] [place] [address]Ebburdazdx [Mass/Vol]0.93 mg/dLNormal0.70-1.30UnFostoria City HospitalComment on above:Performed By: #### [id number] #### [facility] ([facility]) [address] [place] [address]TYBAAZPOAQ FILTRATION RATE ML/MIN/1.73 SQ M.MKSPCMSYT05.0 mL/min/1.73m*2Normal>60.0UnFostoria City HospitalComment on above: Result Comment: The [facility]???s estimated glomerular filtration rate (eGFR) will no [...] affect anyone group of individuals.Performed By: #### [id number] #### [facility] ([facility]) [address] [place] [address]Tlprgje [Mass/Vol]85 mg/pYRdvdfu00-639QcfxmkfgkoFostoria City HospitalComment on above:Performed By: #### [id number] #### [facility] ([facility]) [address] [place] [address]Bdbkpwlzt [Moles/Vol]4.0 mmol/LNormal3.5-5.1UnFostoria City HospitalComment on above:Performed By: #### [id number] #### [facility] ([facility]) [address] [place] [address]Htenzn [Moles/Vol]135 mmol/UIzr382-118MypewqehywFostoria City HospitalComment on above:Performed By: #### [id number] #### [facility] ([facility]) [address] [place], [place] [address]Btdo nitrogen [Mass/Vol]8 mg/dLNormal7-25UnFostoria City HospitalComment on above:Performed By: #### [id number] #### [facility] ([facility]) [address], [place] [address]IFWC NITROGEN/CREATININE (MASS RATIO) IN SER/PLAS8.6Normal [facility]bleComment on above:Performed By: #### [id number] #### [facility] ([facility]) [address] [place], [place] [address]N-NFRVHIDC PROTEINon 5C REACTIVE PROTEIN (MG/L) IN SER/PLAS11.5 mg/LHigh<=5.0UnFostoria City HospitalComment on above: Result Comment: Testing performed using a new methodology, turbidimetry. Normal ranges have been updated. Old normal range was <8 mg/L.Performed By: #### [id number] #### [facility] ([facility]) [address] [place], [place] [address]EOA WITH AUTO DIFFERENTIALon 80-39-0518Fedmcfhhy (Bld) [#/Vol] 0.08 10*3/uLNormal0.00-0.20UnFostoria City HospitalComment on above: Performed By: #### [id number] ####[facility] ([facility])[address] [place], [place] [address]Spihtqaht/100 WBC (Bld)1.1 %High0.0-1.0UnFostoria City HospitalComment on above:Performed By: #### [id number] ####[facility] ([facility])[address] [place], [place] [address]Erigcygkcmz (Bld) [#/Vol]0.19 10*3/uL Normal0.00-0.50UnFostoria City HospitalComment on above:Performed By: #### [id number] ####[facility] [place] [address] Eosinophils/100 WBC (Bld)2.7 %Normal0.0-6.0[facility] Comment on above:Performed By: #### [id number] ####[facility] ([facility])[address] [place], [place] [address]Qygpmndltof distribution width (RBC) [Ratio]16.6 % High11.5-15.0UnFostoria City HospitalComment on above:Performed By: #### [id number] ####[facility] ([facility])[address] [place] [address] ERYTHROCYTE MEAN CORPUSCULAR HEMOGLOBIN CONCENTRATION (G/DL) BY IKEXFSIKY96.1 g/dLLow32.0-35.0UnFostoria City HospitalComment on above:Performed By: #### [id number] ####[facility] ([facility])[address] [place], [place] [address]Blqdrvrkdu (Bld) [Volume fraction]44.5 %Neaxjt39.0-55.0UnFostoria City HospitalComment on above:Performed By: #### [id number] ####[facility] ([facility])[address] [place], [place] [address]Wawhqpzakg (Bld) [Mass/Vol]13.4 g/dL Wmnfhg02.0-17.0UnFostoria City HospitalComment on above:Performed By: #### [id number] ####[facility] ([facility])[address] [place] [address] Immature granulocytes (Bld) [#/Vol]0.10 10*3/uLNormal0.00-0.20UnFostoria City HospitalComment on above:Performed By: #### [id number] ####[facility] ([facility])[address] [place], [place] [address]Ptqrtpor granulocytes/100 WBC (Bld)1.4 %High0.0-1.0UnFostoria City HospitalComment on above: Performed By: #### [id number] ####[facility] ([facility])[address] [place], [place] [address]Xsqzofvgbqe (Bld) [#/Vol]0.90 10*3/uLLow1.20-4.00UnFostoria City HospitalComment on above:Performed By: #### [id number] ####[facility] ([facility])[address] [place], [place] [address]Xwucvmzsicr/100 WBC (Bld) 12.8 %Low20.0-45.0UnFostoria City HospitalComment on above:Performed By: #### [id number] ####[facility] ([facility])[address] [place], [place] [address]TXE (RBC) [Entitic mass]26.9 pgLow27.0-33.0UnFostoria City HospitalComment on above:Performed By: #### [id number] ####[facility] ([facility])[address] [place], [place] [address]VFP (RBC) [Entitic vol]89.4 fLNormal 82.0-98.0UnFostoria City HospitalComment on above:Performed By: #### [id number] ####[facility] ([facility])[address] [place] [address] Monocytes (Bld) [#/Vol]0.60 10*3/uLNormal0.10-1.00UnFostoria City HospitalComment on above:Performed By: #### [id number] ####[facility] ([facility])[address] [facility], [place] [address]Zzdljjgyl/100 WBC (Bld)8.5 %Normal 5.0-12.0UnFostoria City HospitalComment on above:Performed By: #### [id number] ####[facility] ([facility])[address] [place] [address] Neutrophils (Bld) [#/Vol]5.17 10*3/uLNormal1.60-7.60UnFostoria City HospitalComment on above:Performed By: #### [id number] ####[facility] ([facility])[address] [place] [address]Enfmhzchvxj/100 WBC (Bld)73.5 %High 40.0-72.0UnFostoria City HospitalComment on above:Performed By: #### [id number] ####[facility] ([facility])[address] [address]BDEL (PER 100 WBCS) BY AUTOMATED COUNT0.0 %Moaokm0BlcsiqfdpwFostoria City Hospital Comment on above:Performed By: #### [id number] ####[facility] ([facility])[address] [place] [address]OLYJHGPSS (10*3/UL) IN BLOOD AUTOMATED XHXKW976 10*3/rINiujnf986-463KeiyflibnsFostoria City HospitalComment on above: Performed By: #### [id number] ####[facility] ([facility])[address] [place] [address]UUX (Bld) [#/Vol]4.98 10*6/uLNormal4.20-5.70UnFostoria City HospitalComment on above:Performed By: #### [id number] ####[facility] ([facility])[address] [place] [address]ZFQ (Bld) [#/Vol]7.04 10*3/uLNormal4.00-10.60UnFostoria City HospitalComment on above: Performed By: #### [id number] ####[facility] ([facility])[address] [place], [place] [address]MQDHBADZVCFXB RATEon 46-31-8838MGZUXFHEERCWR RATE, AIFBOAOTDWM48 mm/hrHigh<20UnFostoria City HospitalComment on above: Performed By: #### [id number] #### [facility] [address] [place] [address]NPEIBPGPWB, PEAKon 10-12-4299OCDOXSIJPX (UG/ML) IN SER/PLAS - PEAK23.0 ug/hFXyxcnz57.0-50.0UnFostoria City HospitalComment on above:Performed By: #### [id number] #### [facility] ([facility]) [address] [place] [address]AOVPWYILRV, TROUGHon 53-79-5646BUTQLNAGKF (UG/ML) IN SER/PLAS - AMYXCS90.2 ug/mLNormal5.0-20.0UnFostoria City HospitalComment on above:Performed By: #### [id number] #### [facility] ([facility]) [address] [place] [address]15mx 25-96-291694Hujfs with facility and patient was admitted back here at [place] yesterday. They will call back if they need any orders.NormalUnFostoria City Hospital BASIC METABOLIC PANELon 72-49-2569Vaahh gap [Moles/Vol]9 mmol/LNormal7-20 [facility]Comment on above:Performed By: #### [id number] ####[facility] ([facility])[address] [place], [place] [address]Jyikvko [Mass/Vol]9.4 mg/dLNormal8.6-10.3UnFostoria City HospitalComment on above:Performed By: #### [id number] ####[facility] ([facility])[address] [place], [place] [address]Ezuqnrpo [Moles/Vol]96 mmol/TDpy51-163QviwtjjaztFostoria City HospitalComment on above:Performed By: #### [id number] ####[facility] ([facility])[address] [place], [place] [address]FF9 [Moles/Vol]36 mmol/LXssd11-83 [facility]Comment on above:Performed By: #### [id number] ####[facility] ([facility])[address] [place], [place] [address]Zccvwwuwvw [Mass/Vol]0.98 mg/dLNormal0.70-1.30UnFostoria City HospitalComment on above:Performed By: #### [id number] ####[facility] ([facility])[address] [place] [address]BHHAJUAAEN FILTRATION RATE ML/MIN/1.73 SQ M.UHZSSJLVT83.1 mL/min/1.73m*2Normal>60.0UnFostoria City HospitalComment on above: Result Comment: The [facility]???s estimated glomerular filtration rate (eGFR) will no [...] anyone group of individuals.Performed By: #### [id number] ####[facility] ([facility])[address] [place] [address]Rhtvebg [Mass/Vol]90 mg/cPSzfyvh37-753UxfgkyaatxFostoria City HospitalComment on above:Performed By: #### LAB15 ####[facility] ([facility])[address] [place] [address]Nvigzauyy [Moles/Vol]4.0 mmol/LNormal3.5-5.1UnFostoria City HospitalComment on above:Performed By: #### LAB15 ####[facility] ([facility])[address] [place] [address] Sodium [Moles/Vol]137 mmol/HPkvfzt193-907EtuhmhhpcbFostoria City Hospital Comment on above:Performed By: #### LAB15 ####[facility] ([facility])[address] [place], [place] [address]Etvu nitrogen [Mass/Vol]7 mg/dLNormal7-25UnFostoria City HospitalComment on above:Performed By: #### LAB15 ####[facility] ([facility])[address] [place], [place] [address]QCUH NITROGEN/CREATININE (MASS RATIO) IN SER/PLAS7.1NormalUnFostoria City HospitalComment on above:Performed By: #### [id number] ####[facility] ([facility])[address] [place] [address]XBOwg 89-11-9955Qpuiymxdpas distribution width (RBC) [Ratio] 16.2 %High11.5-15.0UnFostoria City HospitalComment on above:Performed By: #### [id number] #### [facility] ([facility]) [address] [place] [address]SAABXKGRBFX MEAN CORPUSCULAR HEMOGLOBIN CONCENTRATION (G/DL) BY GALXQRAQJ89.5 g/dLLow32.0-35.0UnFostoria City HospitalComment on above:Performed By: #### [id number] #### [facility] ([facility] [place]) [address] [place] [address]Tcmcukikbu (Bld) [Volume fraction]42.0 %Lyuamv04.0-55.0 [facility] PrebleComment on above:Performed By: #### [id number] #### [facility] ([facility] [place]) [address] [place] [address]Gtofplsqzs (Bld) [Mass/Vol]12.8 g/dLLow13.0-17.0UnFostoria City HospitalComment on above:Performed By: #### [id number] #### [facility] ([facility] [place]) [address] [place] [address]ZCW (RBC) [Entitic mass]26.9 pgLow27.0-33.0UnFostoria City HospitalComment on above:Performed By: #### [id number] #### [facility] ([facility] [place]) [address] [place] [address]GAD (RBC) [Entitic vol]88.2 eTXhlqfh49.0-98.0UnFostoria City HospitalComment on above:Performed By: #### [id number] #### [facility] ([facility] [place]) [address] [place] [address]HZXOJUCHI (10*3/UL) IN BLOOD AUTOMATED [id number] 10*3/uLNormal 150-400UnFostoria City HospitalComment on above:Performed By: #### [id number] #### [facility] ([facility] [place]) [address] [place] [address]KDF (Bld) [#/Vol]4.76 10*6/uLNormal4.20-5.70UnFostoria City HospitalComment on above:Performed By: #### [id number] #### [facility] ([facility] [place]) [address] [place] [address]MNE (Bld) [#/Vol]8.22 10*3/uLNormal4.00-10.60UnFostoria City HospitalComment on above:Performed By: #### [id number] #### [facility] ([facility] [place]) [address] [facility] [place] [address]FWJOUTGMWpr 61-90-4328Lzhorvcol [Mass/Vol]2.0 mg/dLNormal1.9-2.7 [facility] PrebleComment on above:Performed By: #### [id number] #### [facility] ([facility] [place]) [address] [place], [place] [address]NWJUD CULTUREon [id number] identified Cx Nom (Bld)No growth at 5 daysNormalUniversMercy Health – The Jewish HospitalComment on above: Performed By: #### [id number] ####[facility] ([facility] [place])[address] [place], [place] [address]Hfkld Comment: From a different site than #1.Performed By: #### [id number] #### [facility] ([facility] [place]) [address] [facility] [place], [place] [address]X-ONCWLLSR PROTEINon 10-08-2024 REACTIVE PROTEIN (MG/L) IN SER/PLAS26.6 mg/LHigh<=5.0UnFostoria City HospitalComment on above: Result Comment: Testing performed using a new methodology, turbidimetry. Normal ranges have been updated. Old normal range was <8 mg/L.Performed By: #### [id number] ####[facility] [place] [address]MPY WITH AUTO DIFFERENTIALon 19-78-8846Qsmsbgowi (Bld) [#/Vol]0.06 10*3/uLNormal0.00-0.20 [facility] PrebleComment on above:Performed By: #### [id number] #### [facility] ([facility] [facility] [place] [address] [place] [address]Zsikhlybg/100 WBC (Bld)0.8 %Normal0.0-1.0UnFostoria City HospitalComment on above:Performed By: #### [id number] #### [facility] ([facility] [place] [address] [place] [address]Wnjqtttbaxg (Bld) [#/Vol]0.17 10*3/uLNormal0.00-0.50UnFostoria City HospitalComment on above:Performed By: #### [id number] #### [facility] ([facility] [place] [address] [place], [place] [address]Aevxujonodc/100 WBC (Bld)2.3 %Normal0.0-6.0UnFostoria City HospitalComment on above:Performed By: #### [id number] #### [facility] ([facility] [place] [address] [place], [place] [address]Zblorpghtwt distribution width (RBC) [Ratio]16.0 %High11.5-15.0 [facility] Health PrebleComment on above:Performed By: #### [id number] #### [facility] ([facility] [place]) [address] [place], [place] [address]OQTYNXNUEHT MEAN CORPUSCULAR HEMOGLOBIN CONCENTRATION (G/DL) BY AXMGYDSTB24.3 g/dLLow32.0-35.0UnFostoria City HospitalComment on above:Performed By: #### [id number] #### [facility] ([facility] [place] [address] [place], [place] [address]Iypszuwtnc (Bld) [Volume fraction]40.9 %Aozmyt93.0-55.0 [facility] PrebleComment on above:Performed By: #### [id number] #### [facility] ([facility]) [address] [facility] [place], [place] [address]Wjcpclncgo (Bld) [Mass/Vol]12.4 g/dLLow13.0-17.0UnFostoria City HospitalComment on above:Performed By: #### [id number] #### [facility] ([facility] [place]) [address] [place], [place] [address]Twzlamkl granulocytes (Bld) [#/Vol]0.10 10*3/uLNormal0.00-0.20 [facility] PrebleComment on above:Performed By: #### [id number] #### [facility] ([facility] [place] [address] [facility] [place], [place] [address]Spigmkdc granulocytes/100 WBC (Bld)1.4 %High0.0-1.0UnFostoria City HospitalComment on above:Performed By: #### [id number] #### [facility] ([facility] [place]) [address] [place], [place] [address]Tvnayxpuuzu (Bld) [#/Vol]0.73 10*3/uLLow1.20-4.00UnFostoria City HospitalComment on above:Performed By: #### [id number] #### [facility] ([facility] [place]) [address] [place], [place] [address]Gzzjfywyzad/100 WBC (Bld)10.0 %Low20.0-45.0UnFostoria City HospitalComment on above:Performed By: #### [id number] #### [facility] ([facility] [place]) [address] [place], [place] [address]RWC (RBC) [Entitic mass]26.7 pgLow27.0-33.0UnFostoria City HospitalComment on above:Performed By: #### [id number] #### [facility] ([facility]) [address] [facility], [place] [address]LCG (RBC) [Entitic vol]88.0 oVAnkdgg06.0-98.0UnFostoria City HospitalComment on above:Performed By: #### [id number] #### [facility] ([facility] [place] [address] [address]Wabqjjvql (Bld) [#/Vol]0.52 10*3/uLNormal0.10-1.00UnFostoria City HospitalComment on above:Performed By: #### [id number] #### [facility] ([facility] [place] [address] [address]Ztkqsjdit/100 WBC (Bld)7.1 %Normal5.0-12.0UnFostoria City HospitalComment on above:Performed By: #### [id number] #### [facility] ([facility] [place] [address] [address]Tbpttpzsesd (Bld) [#/Vol]5.73 10*3/uLNormal1.60-7.60UnFostoria City HospitalComment on above:Performed By: #### [id number] #### [facility] ([facility] [place] [address] [place] [address]Plpkihmsyhg/100 WBC (Bld)78.4 %High40.0-72.0UnFostoria City HospitalComment on above:Performed By: #### [id number] #### [facility] ([facility] [place] [address] [address]CAGN (PER 100 WBCS) BY AUTOMATED COUNT0.0 %Ctdtwb7UerikbsutsFostoria City HospitalComment on above:Performed By: #### [id number] #### [facility] ([facility] [place] [address] [place] [address]TSXCUNYSR (10*3/UL) IN BLOOD AUTOMATED SOATS697 10*3/uLNormal 150-400UnFostoria City HospitalComment on above:Performed By: #### [id number] #### [facility] ([facility] [place] [address] [address]RXN (Bld) [#/Vol]4.65 10*6/uLNormal4.20-5.70UnFostoria City HospitalComment on above:Performed By: #### [id number] #### [facility] ([facility] [place] [address] [place] [address]JZY (Bld) [#/Vol]7.31 10*3/uLNormal4.00-10.60UnFostoria City HospitalComment on above:Performed By: #### [id number] #### [facility] ([facility] [place]) [address] [place] [address]FOVJJKMXIUQQA METABOLIC PANELon 92-18-8065Wkikwpg [Mass/Vol]3.7 g/dLNormal3.5-5.7UnFostoria City HospitalComment on above:Performed By: #### [id number] #### [facility] ([facility] [place]) [address] [place] [address]GEB [Catalytic activity/Vol]130 U/HRdrz53-799XvxurgvieaFostoria City HospitalComment on above:Performed By: #### [id number] #### [facility] ([facility] [place] [address] [place] [address]SWO [Catalytic activity/Vol]14 U/LNormal7-52UnFostoria City HospitalComment on above:Performed By: #### [id number] #### [facility] ([facility] [place]) [address] [place] [address]Jfzeu gap [Moles/Vol]9 mmol/LNormal7-20UnFostoria City HospitalComment on above:Performed By: #### [id number] #### [facility] ([facility] [place]) [address] [place] [address]UEX [Catalytic activity/Vol]19 U/JNkggnp43-23LpnnybzycqFostoria City HospitalComment on above:Performed By: #### [id number] #### [facility] ([facility] [place]) [address] [place] [address]Qwtutxakw [Mass/Vol]0.7 mg/dLNormal0.3-1.0UnFostoria City HospitalComment on above:Performed By: #### [id number] #### [facility] ([facility] [place]) [address] [place], [place] [address]Vcsxauo [Mass/Vol]9.5 mg/dLNormal8.6-10.3UnFostoria City HospitalComment on above:Performed By: #### [id number] #### [facility] ([facility] [place]) [address] [place], [place] [address]Ryrclrps [Moles/Vol]99 mmol/NVheuyp17-597TlfpadipxjFostoria City HospitalComment on above:Performed By: #### [id number] #### [facility] ([facility] [place]) [address] [place], [place] [address]YP4 [Moles/Vol]37 mmol/IRoem40-90RdeckpzfweFostoria City HospitalComment on above:Performed By: #### [id number] #### [facility] ([facility] [place]) [address] [place], [place] [address]Kflmvhvcdm [Mass/Vol]0.96 mg/dLNormal0.70-1.30UnFostoria City HospitalComment on above:Performed By: #### [id number] #### [facility] ([facility] [place]) [address] [place], [place] [address]ONTIGGSTYG FILTRATION RATE ML/MIN/1.73 SQ M.JIEQBETNG76.3 mL/min/1.73m*2Normal>60.0UnFostoria City HospitalComment on above: Result Comment: [facility]???s estimated glomerular filtration rate (eGFR) will no [...] affect anyone group of individuals.Performed By: #### [id number] #### [facility] ([facility] [place]) [address] [place], [place] [address]Sywbptb [Mass/Vol]83 mg/kDPqkyfq12-638NzevnygmdzFostoria City HospitalComment on above:Performed By: #### [id number] #### [facility] ([facility] [place]) [address] [place] [address]Ydjlzdbuy [Moles/Vol]4.2 mmol/LNormal3.5-5.1UnFostoria City HospitalComment on above:Performed By: #### [id number] #### [facility] ([facility] [place]) [address] [place] [address]Uqhtvtx [Mass/Vol]7.1 g/dLNormal6.0-8.3UnFostoria City HospitalComment on above:Performed By: #### [id number] #### [facility] ([facility] [place] [address] [place] [address]Kfymwc [Moles/Vol]141 mmol/KGtdevn820-130LynfnlwmfuFostoria City HospitalComment on above:Performed By: #### [id number] #### [facility] ([facility] [place] [address] [place] [address]Xvkk nitrogen [Mass/Vol]10 mg/dLNormal7-25UnFostoria City HospitalComment on above:Performed By: #### [id number] #### [facility] ([facility] [place]) [address] [place] [address]FWJQ NITROGEN/CREATININE (MASS RATIO) IN SER/PLAS10.4Normal [facility] PrebleComment on above:Performed By: #### [id number] #### [facility] ([facility] [place] [address] [place] [address]OZYCWWXpr 98-93-7047OMFYAFE Attestation signed by Jose Angel Mai MD [...] (Viagra) 25 mg ta (more content not included)...[facility] CenterEDNURSon 58-07-2034YFXOYUEuetwhe: transfer from [facility] Complaint: cellulitis to right leg, hx surgery on 09/24 Notes: patient arrived on this day via [facility] from [facility] for pain to the right leg. Previous surgery at [facility] on 09/24 for right leg tib/fib fracture. Per [facility] staff, patient arrived with increased pain, redness and swelling to right lower extremity. Ultrasound was negative for DVT. [facility] ED treated for cellulitis, administered dose of zosyn at 0330, vancomycin at 2030 and 5mg oxycontin at 1930. Patient endorsed non-compliance, did not have post surgery follow up appointment and has been putting weight on leg. History of hypertension, patient O2 desat to 88% when sleeping. Per [facility], patient non-compliant with bipap. Upon arrival, patient endorsed pain 8/10 and nausea. Patient denied chest pain, fever, chills and shortness of breath.NormalUnFostoria City Hospital EDPROVon 08-20-3568DSPWIQGjvgvdsepaFostoria City Hospital [address] [facility] [address] EMERGENCY DEPARTMENT ENCOUNTER CHIEF COMPLAINT Chief Complaint Patient presents with Cellulitis HISTORY OF PRESENT ILLNESS Matty Garces is a 54 y.o. male who presents with a Chief Complaint Patient presents with Cellulitis REVIEW OF SYSTEMS Review of Systems Musculoskeletal: Positive for arthralgias. Skin: Positive for rash. All other systems reviewed and are negative. The patient is a 54-year-old male who was transferred from [facility] for cellulitis involving recent right lower extremity surgery. Patient had surgical pair of a tibia fracture on September 24. The patient states that he went to [facility] emergency department today due to increased swelling. Patient was given Zosyn and vancomycin at [facility]. Patient states that he is having pain [...] No respiratory distress. B (more content not included)...NormalUnFostoria City Hospital MAGNESIUMon 22-75-3743Hyzoqgzlb [Mass/Vol]1.8 mg/dLLow1.9-2.7UnFostoria City HospitalComment on above:Performed By: #### [id number] #### [facility] ([facility]) [address] [place], [place] [address]OCELQFFERWIHL RATEon 94-26-4178FPSTKIXADZXQH RATE, WSYNWPPYMLZ09 mm/hrHigh<20UnFostoria City HospitalComment on above:Performed By: #### [id number] #### [facility] ([facility]) [address] [place] [address]XQCDNFM D 25 HYDROXYon 06-15-7906ITDDZGPNH (25 [place] VITAMIN D3) (NG/ML) IN SER/PLAS37.0 ng/yMMwiagi49.0-80.0UnFostoria City Hospital Comment on above:Result Comment: >80.0 Toxicity possiblePerformed By: #### [id number] ####[facility] ([facility] [place] [address] [phone] Home Care called and is seeing the patient for wound care, PT, and OT. Seeing patient a couple times a week could specify a number of times. States is also doing dressing changes. [phone] [facility] HospitalTelephoneon 10-04-2024 [id number] Matty Garces 1970 M Date Provider Department Center 10/04/2024 [id number] [facility] MPORTHO No family history on file Reason for Visit and Comments: Information [Other]NormalUnFostoria City Hospital36on Patient in home PT called and wanted to confirm if Dr. Field does the in home therapy approvals/orders or if he had to follow up with his PCP, instructional writer informed her he does. Patient is scheduled for 10/05/24.NormalUnFostoria City HospitalBASIC METABOLIC PANELon 63-87-4548Nhrda gap [Moles/Vol]7 mmol/LNormal7-20 [facility] PrebleComment on above:Performed By: #### [id number] ####[facility] ([facility])[address] [address]Ubconnq [Mass/Vol]9.6 mg/dLNormal8.6-10.3UnFostoria City HospitalComment on above:Performed By: #### [id number] ####[facility] ([facility])[address] [address]Wdkgrwri [Moles/Vol]98 mmol/PAfsqxw18-193FfvndqvgpiFostoria City HospitalComment on above:Performed By: #### [id number] ####[facility] ([facility] [place])[address] [place] [address]GB8 [Moles/Vol]34 mmol/PLpoq40-31 [facility] PrebleComment on above:Performed By: #### [id number] ####[facility] ([facility] [place])[address] [place] [address]Aqdcrlifhq [Mass/Vol]0.92 mg/dLNormal0.70-1.30UnFostoria City HospitalComment on above:Performed By: #### [id number] ####[facility] ([facility] [place])[address] [place] [address]ZSSFXYJVIU FILTRATION RATE ML/MIN/1.73 SQ M.JPZHTIVIU90.9 mL/min/1.73m*2Normal>60.0UnFostoria City HospitalComment on above: Result Comment: The [facility]???s estimated glomerular filtration rate (eGFR) will no [...] anyone group of individuals.Performed By: #### [id number] ####[facility] ([facility] [place])[address] [place] [address]Nvecqqy [Mass/Vol]99 mg/aNIwmfvl32-285AouzlfubbqFostoria City HospitalComment on above:Performed By: #### [id number] ####[facility] ([facility] [place])[address] [place] [address]Akwudrogl [Moles/Vol]4.3 mmol/LNormal3.5-5.1UnFostoria City HospitalComment on above:Performed By: #### [id number] ####[facility] ([facility] [place])[address] [place] [address] Sodium [Moles/Vol]135 mmol/HVoa888-962GrfmdlsrdqFostoria City HospitalComment on above:Performed By: #### [id number] ####[facility] ([facility] [place])[address] [address]Fjgn nitrogen [Mass/Vol]20 mg/dLNormal7-25UnFostoria City HospitalComment on above:Performed By: #### [id number] ####[facility] ([facility] [place])[address] [place] [address]VCSX NITROGEN/CREATININE (MASS RATIO) IN SER/PLAS21.7NormalUniversMercy Health – The Jewish HospitalComment on above: Performed By: #### [id number] ####[facility] ([facility] [place])[address] [address]CQQyg 44-08-3514Olpczcyclak distribution width (RBC) [Ratio]15.3 %High 11.5-15.0UnFostoria City HospitalComment on above:Performed By: #### [id number] #### [facility] ([facility] [place]) [address] [place] [address]MIDIVCTWAKV MEAN CORPUSCULAR HEMOGLOBIN CONCENTRATION (G/DL) BY XYRFIEEQY62.9 g/dLLow32.0-35.0UnFostoria City HospitalComment on above:Performed By: #### [id number] #### [facility] ([facility] [place]) [address] [place] [address]Ysoywlclnf (Bld) [Volume fraction]44.4 %Yreodh55.0-55.0 [facility] PrebleComment on above:Performed By: #### [id number] #### [facility] ([facility] [place]) [address] [place] [address]Bmiumxibzn (Bld) [Mass/Vol]13.7 g/cVNhzsvz73.0-17.0UnFostoria City HospitalComment on above:Performed By: #### [id number] #### [facility] ([facility] [place]) [address] [place] [address]LRA (RBC) [Entitic mass]26.5 pgLow27.0-33.0UnFostoria City HospitalComment on above:Performed By: #### [id number] #### [facility] ([facility] [place]) [address] [place], [place] [address]MKP (RBC) [Entitic vol]85.9 xJSirbjx45.0-98.0UnFostoria City HospitalComment on above:Performed By: #### [id number] #### [facility] ([facility] [place] [address] [place], [place] [address]NMKKDTFGP (10*3/UL) IN BLOOD AUTOMATED JSZOJ047 10*3/uLNormal 150-400UnFostoria City HospitalComment on above:Performed By: #### [id number] #### [facility] ([facility] [place]) [address] [place], [place] [address]GMB (Bld) [#/Vol]5.17 10*6/uLNormal4.20-5.70UnFostoria City HospitalComment on above:Performed By: #### [id number] #### [facility] ([facility] [place] [address] [facility] [place], [place] [address]QGE (Bld) [#/Vol]10.65 10*3/uLHigh4.00-10.60UnFostoria City HospitalComment on above:Performed By: #### [id number] #### [facility] ([facility] [place] [address] [place], [place] [address]NLKKTVGht 64-97-9064JDFDNXNJjusnxo tried CPAP in the past and was [...] Interventions Referrals/Orders: Yes, [facility] Spent: [facility]DS[facility]-60-4264YJMfwbxphzm Admitted 09/23/2024 for Fall, syncope Comminuted right tib/fib fracture CHF HTN Hypomagnesemia Enlarged right hilar node Enlarged prostate Discharge Diagnosis Fall, syncope Comminuted right tib/fib fracture CHF HTN Hypomagnesemia Enlarged right hilar node Enlarged prostate Obstructive sleep apnea Morbid obesity Atrial flutter, new onset Discharge Disposition Home-Health Care [facility] (06) Discharge Medications Your medication list START [...] Medications These medications were sent to [facility] - [address] [place] [address] [address] [facility] [place] [address], [facility] [address] acetaminophen 500 mg tablet aspirin 81 mg [...] approximately 2 hours fro (more content not included)...NormalAdena Health SystemPROVon 59-60-0747QAZQVAFylp report has been cancelled.NormalKettering Health PrebleLetter (Out)on 50-57-2369Ayglvz (Out)[id number] Matty Garces 1970 M Date Provider Department Center 09/28/2024 [id number], GENERIC PRO*INIT None No family history on fileNormalUniversMercy Health – The Jewish HospitalMAGNESIUMon 08-57-0164Lcjvkbnel [Mass/Vol]2.0 mg/dLNormal1.9-2.7UnFostoria City HospitalComment on above:Performed By: #### [id number] #### [facility] ([facility] [place] [address] [place], [place] [address]TAEJPZXApx 32-82-5635BONFDLBWPF signed AMA paperwork with trama team. Pt left with belongings and family. AMA paperwork in patient chart.NormalKettering Health Preble PHOSPHORUSon 06-21-4367Kdfputekr [Mass/Vol]3.3 mg/dLNormal2.5-5.0UnFostoria City HospitalComment on above:Performed By: #### [id number] ####[facility] ([facility] [place] [place], [place] [address]dj 20-74-589375Ozw patient is Moderately Stable - Low risk of patient condition declining or worsening The patient's goals for the shift include comfort The clinical goals for the shift include VSS, pain control Over the shift, the patient did not make progress toward the following goals. Barriers to progression include unstable VS. Recommendations to address these barriers include continue medications as orderedNormalUnithe hospitals of providence [facility]30Daily Case Management Update Multidisciplinary rounds have been completed. Barriers to Discharge: Pending clinical course; POD3 IMN; 4L NC. Patient refusing CPaP at rest/sleep, Pulm brennen consulted and following. PT/OT recommending IPR, PMR consulted and recommend IPR. Patient and spouse would like to go home with [facility]. Referrals sent, pending accepting [facility] agency>>Radha Mendenhall [facility] accepting. DME recommended--wheelchair, rolling walker, bedside commode--scripts written and face to face notes signed.>>need sent to [employer] company for fulfillment. SW following. Diet: Dietary [...] R tib fib facrture Level of Consultation Home Service Advisor assumes full responsibility 09/23/24 1231 09/23/24 1221 [...] Answer: Post muscular skeletal surgical procedure 09/24/24 1242NormalUniProMedica Bay [facility]30The patient is Moderately Stable - Low [...] medicate for pain as ordered maintain safety precautions.NormalUnFostoria City Hospital30The patient is Moderately Stable - Low [...] and behaviors that affect risk of falls [place] fall precautions as indicated by assessment Educate patient/family on patient safety, including physical limitations Instruct patient to call for assistance with activity based on assessment Modify environment to reduce risk of injuryNormalUniversMercy Health – The Jewish HospitalBASIC METABOLIC PANELon 92-32-2457Ebgul gap [Moles/Vol]9 mmol/LNormal7-20 [facility]bleComment on above:Performed By: #### [id number] #### [facility] ([facility] [place] [address] [place], [place] [address]Hlnfexn [Mass/Vol]9.3 mg/dLNormal8.6-10.3UnFostoria City HospitalComment on above:Performed By: #### [id number] #### [facility] ([facility] [place]) [address] [place], [place] [address]Bfdoxnrx [Moles/Vol]99 mmol/EThensv68-278EcjuyjjtgyFostoria City HospitalComment on above:Performed By: #### [id number] #### [facility] ([facility] [place]) [address] [place], [place] [address]OT2 [Moles/Vol]33 mmol/QOpzx66-72XhsugqitnqFostoria City HospitalComment on above:Performed By: #### [id number] #### [facility] ([facility] [place]) [address] [place], [place] [address]Sjstmwomlz [Mass/Vol]0.89 mg/dLNormal0.70-1.30UnFostoria City HospitalComment on above:Performed By: #### [id number] #### [facility] ([facility] [place]) [address] [place], [place] [address]UMKDHVUEOV FILTRATION RATE ML/MIN/1.73 SQ M.ZAYHPAVOH752.8 mL/min/1.73m*2Normal>60.0UnFostoria City HospitalComment on above: Result Comment: The [facility]???s estimated glomerular filtration rate (eGFR) will no [...] affect anyone group of individuals.Performed By: #### [id number] #### [facility] ([facility] [place]) [address] [place], [place] [address]Fvvhlzd [Mass/Vol]95 mg/wUNkefbm76-710VncojrtlsmFostoria City HospitalComment on above:Performed By: #### [id number] #### [facility] ([facility] [place]) [address] [place], [place] [address]Srrdmvrwd [Moles/Vol]4.1 mmol/LNormal3.5-5.1UnFostoria City HospitalComment on above:Performed By: #### [id number] #### [facility] ([facility] [place]) [address] [place], [place] [address]Cdiruo [Moles/Vol]137 mmol/ADnouzu972-429XkzaxjyyfeFostoria City HospitalComment on above:Performed By: #### [id number] #### [facility] ([facility] [place]) [address] [place], [place] [address]Cgef nitrogen [Mass/Vol]17 mg/dLNormal7-25UnFostoria City HospitalComment on above:Performed By: #### [id number] #### [facility] ([facility] [place] [address] [place], [place] [address]KIJE NITROGEN/CREATININE (MASS RATIO) IN SER/PLAS19.1Normal [facility] PrebleComment on above:Performed By: #### [id number] #### [facility] ([facility] [place]) [address] [place], [place] [address]ZCYjc 23-04-7772Oahlsynyrlq distribution width (RBC) [Ratio]15.4 %High11.5-15.0UnFostoria City HospitalComment on above:Performed By: #### [id number] #### [facility] ([facility] [place] [address] [place] [address]YQUTCLVUZIK MEAN CORPUSCULAR HEMOGLOBIN CONCENTRATION (G/DL) BY DXAPBTTAT53.8 g/dLLow32.0-35.0UnFostoria City HospitalComment on above:Performed By: #### [id number] #### [facility] ([facility] [place]) [address] [place] [address]Txkaldjssz (Bld) [Volume fraction]45.5 %Whubzp73.0-55.0 [facility] PrebleComment on above:Performed By: #### [id number] #### [facility] ([facility] [place] [address] [place] [address]Lsikznpcys (Bld) [Mass/Vol]14.0 g/zIZuqnjh78.0-17.0UnFostoria City HospitalComment on above:Performed By: #### [id number] #### [facility] ([facility] [place]) [address] [place] [address]ULV (RBC) [Entitic mass]26.5 pgLow27.0-33.0UnFostoria City HospitalComment on above:Performed By: #### [id number] #### [facility] ([facility] [place]) [address] [place] [address]ZVV (RBC) [Entitic vol]86.0 aWNhblxy02.0-98.0UnFostoria City HospitalComment on above:Performed By: #### [id number] #### [facility] ([facility] [place]) [address] [place] [address]NNOKWZCNB (10*3/UL) IN BLOOD AUTOMATED TPXDS614 10*3/uLNormal 150-400UnFostoria City HospitalComment on above:Performed By: #### [id number] #### [facility] ([facility] [place]) [address] [place] [address]THR (Bld) [#/Vol]5.29 10*6/uLNormal4.20-5.70UnFostoria City HospitalComment on above:Performed By: #### [id number] #### [facility] ([facility] [place]) [address] [place] [address]AEH (Bld) [#/Vol]10.21 10*3/uLNormal4.00-10.60UnFostoria City HospitalComment on above:Performed By: #### [id number] #### [facility] ([facility] [place]) [address] [place], [place] [address]GOFJVRRJKtw 61-92-4715Xnqnunjyr [Mass/Vol]1.9 mg/dLNormal1.9-2.7 [facility] PrebleComment on above:Performed By: #### [id number] #### [facility] ([facility]) [address] [place], [place] [address]ICHXRFDFYMzn 74-35-2169Nzesnijam [Mass/Vol]4.4 mg/dLNormal 2.5-5.0UnFostoria City HospitalComment on above:Performed By: #### [id number] #### [facility] ([facility] [place] [address] [place], [place] [address]JNCMQD BLOOD GAS WITH IONIZED CALCIUMon 09-10-4481Dfuk excess Calc (BldV) [Moles/Vol]9.2 mmol/LNormalUnFostoria City Hospital Comment on above:Performed By: #### [id number] ####[facility] [id number] [place] [address] USACALCIUM IONIZED (MMOL/L) IN BLOOD1.27 mmol/L Normal1.15-1.33UnFostoria City HospitalComment on above:Performed By: #### [id number] ####[facility] [id number] [place] [address] [place] CO2 (BldV) [Partial pressure]50 mm[Hg]Ttbamk67-75IliovyahysFostoria City HospitalComment on above:Performed By: #### [id number] ####[facility] [id number] [place] [address] USAHCO3 (Bld) [Moles/Vol]34.8 mmol/L NormalUnFostoria City HospitalComment on above:Performed By: #### [id number] ####[facility] [id number] [place] [address] USAOxygen (BldV) [Partial pressure]53 mm[Hg]Egos93-21KequbrmrkpFostoria City Hospital Comment on above:Performed By: #### [id number] ####[facility] [id number] [place] [address] USAOXYGEN SATURATION (%) IN VENOUS BLOOD87.1 %High 65.0-75.0UnFostoria City HospitalComment on above:Performed By: #### [id number] ####[facility] [id number] [place] [address] USAPH OF VENOUS BLOOD7.19Pjki6.31-7.41UnFostoria City HospitalComment on above:Performed By: #### [id number] ####[facility] [id number] [place] [address] USABASIC METABOLIC PANELon 96-23-2634Kwtwi gap [Moles/Vol]8 mmol/LNormal7-20UnFostoria City HospitalComment on above:Performed By: #### [id number] #### [facility] ([facility]) [address] [place], [place] [address]Uftplvk [Mass/Vol]9.4 mg/dLNormal8.6-10.3UnFostoria City HospitalComment on above:Performed By: #### [id number] #### [facility] ([facility]) [address] [place], [place] [address]Fbgmgakl [Moles/Vol]99 mmol/MChewzv98-225SlojhfnzukFostoria City HospitalComment on above:Performed By: #### [id number] #### [facility] ([facility]) [address] [place], [place] [address]OM6 [Moles/Vol]36 mmol/FCivx46-08BacgjsxsxgFostoria City HospitalComment on above:Performed By: #### [id number] #### [facility] ([facility]) [address] [place] [address]Gupulkopkx [Mass/Vol]0.91 mg/dLNormal0.70-1.30UnFostoria City HospitalComment on above:Performed By: #### [id number] #### [facility] ([facility]) [address] [place] [address]DUUQABKXBF FILTRATION RATE ML/MIN/1.73 SQ M.IFJNCAFQQ394.2 mL/min/1.73m*2Normal>60.0UnFostoria City HospitalComment on above: Result Comment: The [facility]???s estimated glomerular filtration rate (eGFR) will no [...] affect anyone group of individuals.Performed By: #### [id number] #### [facility] ([facility]) [address] [place] [address]Uodedym [Mass/Vol]85 mg/rHWtxwtv54-816PysicdicwnFostoria City HospitalComment on above:Performed By: #### [id number] #### [facility] ([facility]) [address] [place] [address]Gcynhtxao [Moles/Vol]3.8 mmol/LNormal3.5-5.1UnFostoria City HospitalComment on above:Performed By: #### [id number] #### [facility] ([facility]) [address] [place] [address]Hhzdgq [Moles/Vol]139 mmol/CIavopx422-022BrvxikhwcnFostoria City HospitalComment on above:Performed By: #### [id number] #### [facility] ([facility] [place]) [address] [place] [address]Zpre nitrogen [Mass/Vol]18 mg/dLNormal7-25UnFostoria City HospitalComment on above:Performed By: #### [id number] #### [facility] ([facility] [place]) [address] [place] [address]WDXH NITROGEN/CREATININE (MASS RATIO) IN SER/PLAS19.8Normal [facility]bleComment on above:Performed By: #### [id number] #### [facility] ([facility]) [address] [place] [address]GXFve 28-04-5606Duqnijmfjvn distribution width (RBC) [Ratio]15.4 %High11.5-15.0UnFostoria City HospitalComment on above:Performed By: #### [id number] #### [facility] ([facility]) [address] [place] [address]EHFWIMMKFMF MEAN CORPUSCULAR HEMOGLOBIN CONCENTRATION (G/DL) BY WBEDFGWVV08.1 g/dLLow32.0-35.0UnFostoria City HospitalComment on above:Performed By: #### [id number] #### [facility] ([facility] [place]) [address] [place] [address]Lnatejehgv (Bld) [Volume fraction]43.8 %Nfuobk19.0-55.0 [facility]bleComment on above:Performed By: #### [id number] #### [facility] ([facility] [place]) [address] [place] [address]Icptkpfvst (Bld) [Mass/Vol]13.6 g/eBSuwape60.0-17.0UnFostoria City HospitalComment on above:Performed By: #### [id number] #### [facility] ([facility] [place]) [address] [place] [address]FFK (RBC) [Entitic mass]26.3 pgLow27.0-33.0UnFostoria City HospitalComment on above:Performed By: #### [id number] #### [facility] [address] [place] [address]NAM (RBC) [Entitic vol]84.7 zCOsfjpe26.0-98.0UnFostoria City HospitalComment on above:Performed By: #### [id number] #### [facility] ([facility] [place]) [address] [place] [address]MZYEXEJMA (10*3/UL) IN BLOOD AUTOMATED FGOMH351 10*3/uLNormal 150-400UnFostoria City HospitalComment on above:Performed By: #### [id number] #### [facility] ([facility] [place]) [address] [place], [place] [address]XMH (Bld) [#/Vol]5.17 10*6/uLNormal4.20-5.70UnFostoria City HospitalComment on above:Performed By: #### [id number] #### [facility] ([facility] [place]) [address] [place] [place] [address]DON (Bld) [#/Vol]9.63 10*3/uLNormal4.00-10.60UnFostoria City HospitalComment on above:Performed By: #### [id number] #### [facility] ([facility] [place]) [address] [place], [place] [address]BDOBUFKGGwe 90-98-4742Lptgsqtuc [Mass/Vol]1.9 mg/dLNormal1.9-2.7 [facility]Comment on above:Performed By: #### [id number] #### [facility] ([facility]) [address] [place] [place], [place] [address]SZNUQUTRPCry 79-23-7897Vekwidqzj [Mass/Vol]2.6 mg/dLNormal 2.5-5.0UnFostoria City HospitalComment on above:Performed By: #### [id number] #### [facility] ([facility]) [address] [place] [address]zm 94-04-413757Mfcnvew: Pain - Adult Goal: Verbalizes/displays adequate comfort [...] address these barriers include consult for respiratory therapy.[facility]30Daily Case Management Update Multidisciplinary rounds have been completed. Barriers to Discharge: Pending clinical course; patient requiring 10L salter at this time, pulmonary navigator consulted for possible PATEL. CXR ordered, no acute findings. Patient will require a home O2 evaluation if unable to wean oxygen. PT/OT recommending IPR, PMR consulted and recommend IPR. Patient and spouse would like to go home with [facility]. Referrals sent, pending accepting [facility] agency. DME recommended--wheelchair, rolling walker, bedside [...] R tib fib facrture Level of Consultation Home Service Advisor assumes full responsibility 09/23/24 1231 09/23/24 1221 [...] muscular skeletal surgical procedure 09/24/24 1242NormalUniversMercy Health – The Jewish HospitalBASIC METABOLIC PANELon 97-19-4099Kpdha gap [Moles/Vol]9 mmol/LNormal7-20UnFostoria City HospitalComment on above:Performed By: #### LAB15 ####[facility] ([facility] [place])[address] [place], [place] [address]Lpgkyku [Mass/Vol]8.9 mg/dLNormal 8.6-10.3UnFostoria City HospitalComment on above:Performed By: #### LAB15 ####[facility] ([facility])[address] [place], [place] [address]Wypkbaen [Moles/Vol]97 mmol/BUef63-631XqnvfbtnboFostoria City HospitalComment on above:Performed By: #### LAB15 ####[facility] ([facility] [place])[address] [place], [place] [address]HR6 [Moles/Vol]32 mmol/MIdfr27-78UtnolqfsetFostoria City HospitalComment on above:Performed By: #### LAB15 ####[facility] ([facility] [place])[address] [place], [place] [address]Ctsezfcflj [Mass/Vol]0.91 mg/dLNormal 0.70-1.30UnFostoria City HospitalComment on above:Performed By: #### LAB15 ####[facility] ([facility] [place])[address] [place], [place] [address]ZXZDGTYJZT FILTRATION RATE ML/MIN/1.73 SQ M.OMOATXZRO622.2 mL/min/1.73m*2Normal>60.0 [facility]Comment on above:Result Comment: The [facility]???s estimated glomerular filtration rate (eG FR) will [...] group of individuals. Performed By: #### LAB15 ####[facility] ([facility] [place])[address] [place] [address]Fchcndy [Mass/Vol]141 mg/rOJesq80-705OyrqcfwjblFostoria City HospitalComment on above:Performed By: #### LAB15 ####[facility] ([facility] [place])[address] [place] [address]Iysnlrdxj [Moles/Vol]4.2 mmol/LNormal 3.5-5.1UnFostoria City HospitalComment on above:Performed By: #### LAB15 ####[facility] ([facility] [place])[address] [place] [address]Ekittz [Moles/Vol]134 mmol/ZYnn156-337HgoqrqvnjtFostoria City HospitalComment on above:Performed By: #### LAB15 ####[facility] ([facility] [place])[address] [facility] [place] [address]Rxzl nitrogen [Mass/Vol]15 mg/dLNormal7-25UnFostoria City HospitalComment on above:Performed By: #### LAB15 ####[facility] ([facility] [place])[address] [place], [place] [address]KZTK NITROGEN/CREATININE (MASS RATIO) IN SER/PLAS16.5NormalUniversMercy Health – The Jewish HospitalComment on above: Performed By: #### LAB15 ####[facility] ([facility])[address] [place] [place], [place] [address]GVSzu 51-82-7425Pgmcrkufilh distribution width (RBC) [Ratio]14.9 % Jlhsrw43.5-15.0UnFostoria City HospitalComment on above:Performed By: #### [id number] #### [facility] ([facility] [place]) [address] [place], [place] [address]BKXVQQPKBGN MEAN CORPUSCULAR HEMOGLOBIN CONCENTRATION (G/DL) BY WHJEEMYWT01.1 g/dLLow32.0-35.0UnFostoria City HospitalComment on above:Performed By: #### IMI671 #### [facility] ([facility]) [address] [place] [address]Qdmeurxtvn (Bld) [Volume fraction]45.4 %Rxamjc07.0-55.0 [facility]Comment on above:Performed By: #### WDS401 #### [facility] ([facility] [place]) [address] [place] [address]Jpvzmstbes (Bld) [Mass/Vol]14.1 g/wZKuyysx51.0-17.0UnFostoria City HospitalComment on above:Performed By: #### [id number] #### [facility] ([facility] [place]) [address] [place] [address]DDO (RBC) [Entitic mass]26.3 pgLow27.0-33.0UnFostoria City HospitalComment on above:Performed By: #### MVQ963 #### [facility] ([facility] [place]) [address] [place] [address]DJT (RBC) [Entitic vol]84.5 iKKnolnm73.0-98.0UnFostoria City HospitalComment on above:Performed By: #### PGQ753 #### [facility] ([facility] [place]) [address] [place] [address]EHBRJWARE (10*3/UL) IN BLOOD AUTOMATED WWYOT235 10*3/uLNormal 150-400UnFostoria City HospitalComment on above:Performed By: #### [id number] #### [facility] ([facility] [place]) [address] [place] [address]DYF (Bld) [#/Vol]5.37 10*6/uLNormal4.20-5.70UnFostoria City HospitalComment on above:Performed By: #### [id number] #### [facility] ([facility] [place]) [address] [place] [address]EBA (Bld) [#/Vol]14.37 10*3/uLHigh4.00-10.60UnFostoria City HospitalComment on above:Performed By: #### [id number] #### [facility] ([facility] [place]) [place] [address]GJXSBYMLFzf 68-12-0536Yjotlyowy [Mass/Vol]2.1 mg/dLNormal1.9-2.7 [facility]Comment on above:Performed By: #### WQX807 ####[facility] ([facility] [place])[address] [place] [address]AIMOSAAWug 58-50-6366TIZNCLVWSjkvxx RN met patient at bedside and provided the Trauma Services Patient Brochure. Patient will follow-up with Orthopedics 10/05/2024 at 0900. No further needs currently.NormalUnFostoria City HospitalPHOSPHORUSon 09-25-2024 Magnesium [Mass/Vol]2.8 mg/dLNormal2.5-5.0UnFostoria City Hospital Comment on above:Performed By: #### [id number] ####[facility] ([facility] [place])[address] [place] [address]lg 06-82-961535Aum patient is Moderately Stable - Low risk [...] Free from fall injury Outcome: ProgressingNormalUniversMercy Health – The Jewish HospitalBASIC METABOLIC PANELon 61-70-2476Jtkyk gap [Moles/Vol]8 mmol/LNormal7-20UnFostoria City HospitalComment on above:Performed By: #### LAB15 ####[facility] ([facility] [place])[address] [place] [address]Brkuxtp [Mass/Vol]9.1 mg/dLNormal 8.6-10.3UnFostoria City HospitalComment on above:Performed By: #### LAB15 ####[facility] ([facility] [place])[address] [place], [place] [address]Uefcnviy [Moles/Vol]98 mmol/GNyevli88-392LjgroewrveFostoria City HospitalComment on above:Performed By: #### LAB15 ####[facility] ([facility] [place])[address] [place] [address]KY9 [Moles/Vol]35 mmol/GArxv88-23EoyzednmodFostoria City HospitalComment on above:Performed By: #### LAB15 ####[facility] ([facility] [place])[address] [place], [place] [address]Aoyinqfcab [Mass/Vol]1.02 mg/dLNormal 0.70-1.30UnFostoria City HospitalComment on above:Performed By: #### LAB15 ####[facility] ([facility] [place])[address] [place], [place] [address]DJOETJQLRX FILTRATION RATE ML/MIN/1.73 SQ M.JHYMGKURH97.3 mL/min/1.73m*2Normal>60.0 [facility]Comment on above:Result Comment: The [facility]???s estimated glomerular filtration rate (eG FR) will [...] group of individuals. Performed By: #### LAB15 ####[facility] ([facility] [place])[address] [place], [place] [address]Lrsoqvh [Mass/Vol]103 mg/xDVaxx52-134TpnhysxyalFostoria City HospitalComment on above:Performed By: #### LAB15 ####[facility] ([facility] [place])[address] [place], [place] [address]Bjktnachf [Moles/Vol]4.2 mmol/LNormal 3.5-5.1UnFostoria City HospitalComment on above:Performed By: #### LAB15 ####[facility] ([facility] [place])[address] [place] [address]Rodxbl [Moles/Vol]137 mmol/OJyhepo047-014MwgyhwfxrwFostoria City HospitalComment on above:Performed By: #### LAB15 ####[facility] ([facility] [place])[address] [place] [address]Bupf nitrogen [Mass/Vol]11 mg/dLNormal7-25UnFostoria City HospitalComment on above:Performed By: #### LAB15 ####[facility] ([facility] [place])[address] [place] [address]KOSQ NITROGEN/CREATININE (MASS RATIO) IN SER/PLAS10.8NormalUniversMercy Health – The Jewish HospitalComment on above: Performed By: #### LAB15 ####[facility] ([facility] [place])[address] [place], [place] [address]SAUjz 60-36-2139Fcfdyxsnpgq distribution width (RBC) [Ratio]15.5 %High 11.5-15.0UnFostoria City HospitalComment on above:Performed By: #### [id number] #### [facility] ([facility] [place]) [address] [place] [address]EJKTYJRLZFO MEAN CORPUSCULAR HEMOGLOBIN CONCENTRATION (G/DL) BY QLPHNMWFS44.4 g/dLLow32.0-35.0UnFostoria City HospitalComment on above:Performed By: #### [id number] #### [facility] ([facility] [place]) [address] [place] [place], [place] [address]Vbmdnngogr (Bld) [Volume fraction]46.4 %Xumyhv65.0-55.0 [facility]bleComment on above:Performed By: #### QQN384 #### [facility] ([facility] [place]) [address] [place] [place], [place] [address]Cuifcgwdjr (Bld) [Mass/Vol]14.1 g/aPGznnow54.0-17.0UnFostoria City HospitalComment on above:Performed By: #### MXQ496 #### [facility] ([facility] [place]) [address] [place] [address]GQC (RBC) [Entitic mass]26.4 pgLow27.0-33.0UnFostoria City HospitalComment on above:Performed By: #### [id number] #### [facility] ([facility] [place]) [address] [place] [address]VQP (RBC) [Entitic vol]86.7 pUOwxrqc04.0-98.0UnFostoria City HospitalComment on above:Performed By: #### IRW222 #### [facility] ([facility] [place]) [address] [place] [address]TTSSCROTY (10*3/UL) IN BLOOD AUTOMATED [id number] 10*3/uLNormal 150-400UnFostoria City HospitalComment on above:Performed By: #### [id number] #### [facility] ([facility]) [address] [place] [address]NKL (Bld) [#/Vol]5.35 10*6/uLNormal4.20-5.70UnFostoria City HospitalComment on above:Performed By: #### [id number] #### [facility] ([facility]) [address] [place] [address]OFV (Bld) [#/Vol]7.56 10*3/uLNormal4.00-10.60UnFostoria City HospitalComment on above:Performed By: #### [id number] #### [facility] ([facility]) [address] [place] [address]WUUNGCFxu 08-13-9362EDLOPCWSagufprf Medicine and Rehabilitation Consult Note Patient not staffed by PM&R today due to surgery today for IMN placement. Our team will staff tomorrow, 09/25/23. Silvia Zaldivar MDNormalUniversity Shelby Memorial HospitalMAGNESIUMon 19-76-5324Fqgxohthb [Mass/Vol]2.2 mg/dLNormal1.9-2.7UnKettering Memorial Hospital Medical CenterComment on above:Performed By: #### [id number] #### [facility]) [place] [address]IUDYBWrj 78-02-1160WPTQYE Attestation signed by Sandrine Field MD at [...] Operative Note Date: 09/23/2024 - 09/24/2024 Location: [facility] OR Name: Matty Garces, : 1970, [...] by intramedullary implant with interlocking screws [CPT: 67350] Stress exam of right ankle under anesthesia [CPT: 21769] Intraoperative use of fluoroscopy less than 1 hour by physician [CPT: 60972] Surgeons Primary: Sandrine Field MD Resident - [...] mm x 34 mm interlocking screw Staff: [employer] Bi Developer: Emi Francis RN Reinsurance Analyst: CHARLINE Montejo Scrub Person: Araseli Butler CST Indications: Matty Garces is an 53 y.o. male who presented as a transfer from [facility] on 09/23/2024. Patient was transferred due to findings of a right distal third tibial shaft fracture after a fall in the shower. The fracture was closed and was subsequently reduced and splinted at [place] in a long-leg splint. Patient made stable [...] of the soft t (more content not included)...NormalUnFostoria City Hospital PHOSPHORUSon 40-62-8082Pdpxccawg [Mass/Vol]4.0 mg/dLNormal2.5-5.0UnFostoria City HospitalComment on above:Performed By: #### [id number] #### [facility] ([facility]ER) [address] [place], [place] [address]VSKN GLUCOSE METER UNSOLICITED RESULTSon 25-95-5936Iqtmkai [Mass/Vol]100 mg/rWMjwqro38-560BligzluzakFostoria City HospitalComment on above:Order Comment: Waived Testing in the ED is performed under the ED CLIA certificate #[id number].Result Comment: gjkybi1Cukisbwzg By: #### [id number] #### [facility] (BE[facility]ER) [address] [place], [place] [address]YATYtg 54-97-2443BWIYKDMPG PARTIAL THROMBOPLASTIN TIME IN PPP BY COAGULATION ASSAY31.2 NkkhqjcUaeapn50.0-35.0UnFostoria City Hospital Comment on above:Result Comment: Clinical significance of the APTT is questionable in the presence of heparin.Performed By: #### [id number] ####[facility] [place] [address]OTG WITH AUTO DIFFERENTIALon 62-45-0233Ubqvgipop (Bld) [#/Vol]0.05 10*3/uLNormal0.00-0.20 [facility]bleComment on above:Performed By: #### [id number] ####[facility] ([facility] [place] [address]Vmrjaekyb/100 WBC (Bld)0.5 %Normal0.0-1.0UnFostoria City HospitalComment on above: Performed By: #### [id number] ####[facility] ([facility] [place], [place] [address]Dxtbekkrumg (Bld) [#/Vol]0.11 10*3/uLNormal0.00-0.50 [facility]bleComment on above:Performed By: #### [id number] ####[facility] ([facility])[address] [place] [address]Ogcolvufprq/100 WBC (Bld)1.0 %Normal0.0-6.0UnFostoria City HospitalComment on above: Performed By: #### [id number] ####[facility] ([facility])[address] [place], [place] [address]Mvycelqmdqg distribution width (RBC) [Ratio]15.9 %High 11.5-15.0UnFostoria City HospitalComment on above:Performed By: #### [id number] ####[facility] ([facility])[address] [place] [address] ERYTHROCYTE MEAN CORPUSCULAR HEMOGLOBIN CONCENTRATION (G/DL) BY SYCFAXJRV84.3 g/dLLow32.0-35.0UnFostoria City HospitalComment on above:Performed By: #### [id number] ####[facility] [place], [place] [address]Ijckfnaxaq (Bld) [Volume fraction]47.8 %Xthbbw60.0-55.0UnFostoria City HospitalComment on above:Performed By: #### [id number] ####[facility] ([facility])[address] [place], [place] [address]Iowjdbobtp (Bld) [Mass/Vol]14.5 g/dL Bfndrm81.0-17.0UnFostoria City HospitalComment on above:Performed By: #### [id number] ####[facility] ([facility] [place] [address] Immature granulocytes (Bld) [#/Vol]0.10 10*3/uLNormal0.00-0.20UnFostoria City HospitalComment on above:Performed By: #### [id number] ####[facility] ([facility])[address] [place], [place] [address]Jvxjroal granulocytes/100 WBC (Bld)0.9 %Normal0.0-1.0UnFostoria City HospitalComment on above: Performed By: #### [id number] ####[facility] ([facility])[address] [place], [place] [address]Tpwxezmhvme (Bld) [#/Vol]0.74 10*3/uLLow1.20-4.00UnFostoria City HospitalComment on above:Performed By: #### [id number] ####[facility] ([facility] [place])[address] [place], [place] [address]Hwqlidehypc/100 WBC (Bld) 7.0 %Low20.0-45.0UnFostoria City HospitalComment on above:Performed By: #### [id number] ####[facility] ([facility])[address] [place], [place] [address]OPD (RBC) [Entitic mass]26.4 pgLow27.0-33.0UnFostoria City HospitalComment on above:Performed By: #### [id number] ####[facility] ([facility])[address] [place], [place] [address]JIH (RBC) [Entitic vol]87.1 fLNormal 82.0-98.0UnFostoria City HospitalComment on above:Performed By: #### [id number] ####[facility] ([facility])[address] [place] [address] Monocytes (Bld) [#/Vol]0.73 10*3/uLNormal0.10-1.00UnFostoria City HospitalComment on above:Performed By: #### [id number] ####[facility] ([facility])[address] [place], [place] [address]Bazhbnkmc/100 WBC (Bld)6.9 %Normal 5.0-12.0UnFostoria City HospitalComment on above:Performed By: #### [id number] ####[facility] ([facility])[address] [place] [address] Neutrophils (Bld) [#/Vol]8.83 10*3/uLHigh1.60-7.60UnFostoria City HospitalComment on above:Performed By: #### [id number] ####[facility] ([facility])[address] [facility], [place] [address]Dnsgglmcmix/100 WBC (Bld)83.7 %High 40.0-72.0UnFostoria City HospitalComment on above:Performed By: #### [id number] ####[facility] ([facility])[address] [place], [place] [address]BWMQ (PER 100 WBCS) BY AUTOMATED COUNT0.0 %Gptnbh9CjqgmoirazFostoria City Hospital Comment on above:Performed By: #### [id number] ####[facility] ([facility])[address] [facility] [place] [address]QWUCIDYJQ (10*3/UL) IN BLOOD AUTOMATED [id number] 10*3/zNFifnhg246-523BmcwrehwwiFostoria City HospitalComment on above: Performed By: #### [id number] ####[facility] [place], [place] [address]UZB (Bld) [#/Vol]5.49 10*6/uLNormal4.20-5.70UnFostoria City HospitalComment on above:Performed By: #### [id number] ####[facility] ([facility])[address] [place] [address]OSA (Bld) [#/Vol]10.56 10*3/uLNormal4.00-10.60UnFostoria City HospitalComment on above: Performed By: #### [id number] ####[facility] ([facility])[address] [place], [place] [address]IYEFXYZUDQWES METABOLIC PANELon 07-20-3761Yxwyiki [Mass/Vol] 3.9 g/dLNormal3.5-5.7UnFostoria City HospitalComment on above: Performed By: #### [id number] ####[facility] ([facility])[address] [place], [place] [address]EXE [Catalytic activity/Vol]98 U/NGxpxfm85-888AkgucxygaiFostoria City HospitalComment on above:Performed By: #### [id number] ####[facility] ([facility] [place])[address] [place], [place] [address]WGY [Catalytic activity/Vol]34 U/L Normal7-52UnFostoria City HospitalComment on above:Performed By: #### [id number] ####[facility] ([facility] [place])[address] [place], [place] [address]Nuagl gap [Moles/Vol]11 mmol/LNormal7-20UnFostoria City HospitalComment on above:Performed By: #### [id number] ####[facility] ([facility] [place])[address] [place], [place] [address]THT [Catalytic activity/Vol]63 U/ZKbbl06-91FlciorrxjiFostoria City HospitalComment on above:Performed By: #### [id number] ####[facility] ([facility] [place])[address] [place], [place] [address]Ywamcbgyz [Mass/Vol]0.7 mg/dL Normal0.3-1.0UnFostoria City HospitalComment on above:Performed By: #### [id number] ####[facility] ([facility])[address] [place] [address] Calcium [Mass/Vol]8.9 mg/dLNormal8.6-10.3UnFostoria City Hospital Comment on above:Performed By: #### [id number] ####[facility] ([facility])[address] [place], [place] [address]Hxtqhovl [Moles/Vol]101 mmol/NLmtwab65-627 [facility] PrebleComment on above:Performed By: #### [id number] ####[facility] ([facility] [place])[address] [place], [place] [address]CW2 [Moles/Vol] 27 mmol/HIhznxi39-50TcyqqctmidFostoria City HospitalComment on above: Performed By: #### [id number] ####[facility] ([facility] [place])[address] [place], [place] [address]Ogqcotorke [Mass/Vol]0.96 mg/dLNormal0.70-1.30UnFostoria City HospitalComment on above:Performed By: #### [id number] ####[facility] ([facility] [place])[address] [place], [place] [address]IADZQEAASK FILTRATION RATE ML/MIN/1.73 SQ M.TEBZOAWOA13.9 mL/min/1.73m*2Normal>60.0UnFostoria City Hospital Comment on above:Result Comment: [facility]???s estimated glomerular filtration rate (eGFR) will no [...] anyone group of individuals.Performed By: #### [id number] ####[facility] [place], [place] [address]Yxxizmo [Mass/Vol]93 mg/dHPnzsoj77-982WltaycduyfFostoria City HospitalComment on above:Performed By: #### [id number] ####[facility] ([facility] [place])[address] [place] [address]Bpqbghfke [Moles/Vol]4.3 mmol/LNormal3.5-5.1UnFostoria City HospitalComment on above:Performed By: #### [id number] ####[facility] ([facility])[address] [place] [address]Lftwcju [Mass/Vol]7.2 g/dLNormal 6.0-8.3UnFostoria City HospitalComment on above:Performed By: #### [id number] ####[facility] ([facility])[address] [place] [address]Gwfutd [Moles/Vol]135 mmol/XJgo870-259NuhzjpkdpbFostoria City HospitalComment on above:Performed By: #### [id number] ####[facility] ([facility] [place])[address] [place] [address]Hvco nitrogen [Mass/Vol]8 mg/dLNormal7-25UnFostoria City HospitalComment on above:Performed By: #### [id number] ####[facility] ([facility] [place])[address] [place] [address]RRKT NITROGEN/CREATININE (MASS RATIO) IN SER/PLAS8.3NormalUniversMercy Health – The Jewish HospitalComment on above: Performed By: #### [id number] ####[facility] ([facility])[address] [place] [address]LHAMHXMxj 14-87-8520JLXTMKK Attestation signed by Sandrine Field MD at [...] Alvarez MD Orthopaedic Surgery, Resident Ortho Pager [phone] 09/23/24 6:55 PM May contact the on-call resident with any concerns via the Orthopaedic pager at any time.Marymount HospitalCT ABDOMEN PELVIS W IV CONTRASTon 85-21-3969QT ABDOMEN PELVIS W IV CONTRASTClinical History and [...] PSA is advised. * Electronically signed: Fahad Frazier.Marymount HospitalCT CERVICAL SPINE WO IV CONTRASTon 32-66-9925QX CERVICAL SPINE WO IV CONTRASTCT CERVICAL SPINE [...] acute fracture nor listhesis. Electronically signed: Fahad Frazier.Mary[facility] HospitalCT CHEST W IV CONTRASTon 52-32-7888YD CHEST W IV CONTRASTCT CHEST W IV [...] 3-4 months is recommended. 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 Patient arrives with Rt leg splintedNormalUniversSt. John of God HospitalPROVon 38-02-8719WAMMEUHrwupuz of Present Illness Chief Complaint Patient presents with Leg Injury Initial evaluation completed by Dr. Lang. Matty Garces is a 53 y/o male presenting to the ED with c/o leg injury. Pt was transferred from [facility] for right distal tibfib fracture. Pt [...] what they are. History provided by: Patient [place] Coma Scale Score: 15 History Past Medical [...] Procedure Abnormality Status --------- ------ CBC auto differential[[id number]] Abnormal Final result Please view results for these tests on the individual orders. TYPE AND SCREEN ABO G (more content not included)...NormalUnFostoria City Hospital ETHANOLon 56-27-4801GMCSMSJ (MG/DL) IN SER/PLAS<10Normal<10UnFostoria City HospitalComment on above:Performed By: #### [id number] #### [facility] ([facility]) [address] [place], [place] [address]ZHQPFBM CALCULATED (%)<0.01NormalUniversMercy Health – The Jewish HospitalComment on above:Performed By: #### [id number] #### [facility] ([facility]) [address] [place], [place] [address]AYea 82-62-2986EXJjpxjypesv of [place] Trauma Surgery Chief Complaint: Trauma Fall Mechanism of Injury: 53 y.o. year old male who was brought in via EMS. He had no C-collar or back board in place. Circumstances of injury: Patient states that he was recently admitted to [facility] for cellulitis to the [facility], he was discharged yesterday and this morning was home, he got out of bed to take a shower and had a micro seizure and heard his right ankle snap. Denies hitting head or LOC but admits that he doesn't remember the whole event. He went back to [facility] ED where a right tib/fib fracture was found and patient was transferred to [facility] Of note patient is on anticoagulant/antiplatelets. Baby aspirin, however he was receiving Shots to prevent blood clots while inpatient at [facility] Review of Systems: General: No For Chills, [...] GCS 15 Neck: Cervica (more content not included)...NormalKettering Health PrebleLACTIC ACID, PLASMAon 16-88-1292MOVVDLI (MMOL/L) IN SER/PLAS0.6 mmol/L Normal0.5-2.2UnFostoria City HospitalComment on above:Performed By: #### [id number] #### [facility] [place] [address] [facility], [place] [address]JLLBAZBCHbb 71-30-0410Ittxscayi [Mass/Vol]1.8 mg/dLLow1.9-2.7 [facility] PrebleComment on above:Performed By: #### [id number] ####[facility] ([facility])[address] [place], [place] [address]UCYDLBUSDFcx 81-66-9095Utecvgjtz [Mass/Vol]3.5 mg/dLNormal2.5-5.0UnFostoria City HospitalComment on above:Performed By: #### [id number] #### [facility] ([facility]) [address] [place], [place] [address]PGOLHMR-OTAno 26-67-9107IUH IN PPP BY COAGULATION ASSAY1.28High 0.90-1.10UnFostoria City HospitalComment on above:Result Comment: ACCCP RECOMMENDED INR [...] RANGE. CHEST 1995;108:231S-246S.Performed By: #### [id number] #### [facility] ([facility]) [address] [place], [place] [address]CMIQASKCGJO TIME (PT) IN PPP BY COAGULATION ASSAY15.9 Seconds High12.3-14.8UnFostoria City HospitalComment on above:Performed By: #### [id number] #### [facility] ([facility]) [address] [place], [place] [address]GHHAKSWURL PANEL URINEon 20-64-9067YYYATOJYAHM+METHAMPHETAMINE SCREEN (PRESENCE) IN URINENegativeNormalNegativeUnFostoria City HospitalComment on above:Performed By: #### [id number] #### [facility] ([facility]) [address] [place], [place] [address]TGMFMDODWIXY PRESENCE IN URINE BY SCREEN METHODNegativeNormal NegativeUnFostoria City HospitalComment on above:Performed By: #### [id number] #### [facility] ([facility]) [address] [place], [place] [address]Sngkjwtfgcvjchq Ql (U)NegativeNormalNegativeUnFostoria City HospitalComment on above:Performed By: #### [id number] #### [facility] ([facility]) [address] [place], [place] [address]CWSHFGFRCBV (PRESENCE) IN URINE BY SCREEN METHODNegativeNormal NegativeUnFostoria City HospitalComment on above:Performed By: #### [id number] #### [facility] ([facility]) [address] [place], [place] [address]Udzwxlx Ql (U)NegativeNormalNegativeUnFostoria City HospitalComment on above:Performed By: #### [id number] #### [facility] ([facility]) [address] [place] [place], [place] [address]XAZPILCZT (PRESENCE) IN URINE BY SCREEN METHODNegativeNormal NegativeUnFostoria City HospitalComment on above:Performed By: #### [id number] #### [facility] ([facility]) [address] [place], [place] [address]YETDEDG (PRESENCE) IN URINE BY SCREEN METHODPositiveAbnormal NegativeUnFostoria City HospitalComment on above:Performed By: #### [id number] #### [facility] ([facility]) [address] [place], [place] [address]CYTFLPWUREOGG PRESENCE IN URINE BY SCREEN METHODNegativeNormal NegativeUnFostoria City HospitalComment on above:Performed By: #### [id number] #### [facility] ([facility]) [address] [place], [place] [address]Kuyatgnpflsj Screen Ql (U)NegativeNormalNegativeUnFostoria City HospitalComment on above:Performed By: #### [id number] #### [facility] ([facility]) [address] [place], [place] [address]DUYWLIMFE ANTIDEPRESSANTS (PRESENCE) IN URINENegativeNormal NegativeKettering Health PrebleComment on above:Performed By: #### [id number] #### [facility] ([facility]) [address] [place], [place] [address]SMYYQKFU Ion 03-02-7951Vojbkatl I.cardiac [Mass/Vol]0.01 ng/mL Normal0.00-0.04UnFostoria City HospitalComment on above:Performed By: #### [id number] #### [facility] ([facility]) [address] [place], [place] [address]QDVH AND SCREENon 84-04-6660IZ SCREENNegativeNormalUniProMedica Bay Park HospitalComment on above:Performed By: #### [id number] #### [facility] ([facility]) [address] [place], [place] [address]QCS group Nom (Bld)ANormalUniverslouis stokes [facility] Comment on above:Performed By: #### [id number] #### [facility] ([facility]) [address] [place], [place] [address]GJ TYPE IN BLOODPositiveNormalUniverslouis stokes cleveland va medical center of [facility]ohn Hospital BeevilleComment on above:Performed By: #### [id number] #### [facility] ([facility]) [address] [place], [place] [address]VSFQBBJWYVvg 71-72-0024SCJRQAXXW, TOTAL PRESENCE IN URINE NegativeNormalNegativeKettering Health PrebleComment on above:Order Comment: Microscopics not performed on urines with negative chemical reactions unless requested on original order.Performed By: #### [id number] ####[facility] ([facility])[address] [place], [place] [address]Bpprbtd (U)ClearNormalClear [facility] PrebleComment on above:Order Comment: Microscopics not performed on urines with negative chemical reactions unless requested on original order.Performed By: #### [id number] ####[facility] ([facility])[address] [place], [place] [address]Qkbhg (U)YellowNormalColorless, Yellow, Light-YellowUnFostoria City HospitalComment on above:Order Comment: Microscopics not performed on urines with negative chemical reactions unless requested on original order.Performed By: #### [id number] ####[facility] ([facility])[address], [place] [address]OBWXAGP (MG/DL) IN URINENormalNormal NormalUnFostoria City HospitalComment on above:Order Comment: Microscopics not performed on urines with negative chemical reactions unless requested on original order.Performed By: #### [id number] ####[facility] ([facility])[address], [place] [address]KAUGXAWHLR PRESENCE IN URINENegative NormalNegativeUnFostoria City HospitalComment on above:Order Comment: Microscopics not performed on urines with negative chemical reactions unless requested on original order.Performed By: #### [id number] ####[facility] ([facility])[address] [place], [place] [address]Zlythvb Ql (U)NegativeNormalNegative [facility] Health PrebleComment on above:Order Comment: Microscopics not performed on urines with negative chemical reactions unless requested on original order.Performed By: #### [id number] ####[facility] ([facility])[address], [place] [address]ENHMZUEHW ESTERASE PRESENCE IN URINE BY TEST STRIP NegativeNormalNegativeUnFostoria City HospitalComment on above:Order Comment: Microscopics not performed on urines with negative chemical reactions unless requested on original order.Performed By: #### [id number] ####[facility] ([facility])[address] [place], [place] [address]GBDNFPA PRESENCE IN URINENegative NormalNegativeKettering Health PrebleComment on above:Order Comment: Microscopics not performed on urines with negative chemical reactions unless requested on original order.Performed By: #### [id number] ####[facility] ([facility])[address] [place], [place] [address]iY (U)6.0 [pH]Normal5.0-8.0UnFostoria City HospitalComment on above:Order Comment: Microscopics not performed on urines with negative chemical reactions unless requested on original order.Performed By: #### [id number] ####[facility] ([facility])[address] [place], [place] [address]Xnubhlm (U) [Mass/Vol]NegativeNormalNegative [facility] PrebleComment on above:Order Comment: Microscopics not performed on urines with negative chemical reactions unless requested on original order.Performed By: #### [id number] ####[facility] ([facility])[address] [place], [place] [address]Bdjlomqf gravity (U) [Rel density]1.050High 1.010-1.030UnFostoria City HospitalComment on above:Order Comment: Microscopics not performed on urines with negative chemical reactions unless requested on original order.Performed By: #### [id number] ####[facility] ([facility])[address] [place], [place] [address]VHCDBZRSUVCG (MG/DL) IN URINENormal NormalNormalUniversMercy Health – The Jewish HospitalComascension providence [facility] on above:Order Comment: Microscopics not performed on urines with negative chemical reactions unless requested on original order.Performed By: #### [id number] ####[facility] ([facility])[address] [place], [place] [address]CVGGQQZ D 25 HYDROXYon 09-23-2024 CALCIDIOL (25 [place] VITAMIN D3) (NG/ML) IN SER/PLAS42.6 ng/tMEexfjz55.0-80.0 [facility] PrebleComment on above:Result Comment: >80.0 Toxicity possiblePerformed By: #### [id number] #### [facility] ([place]) [address] [place], [place] [address]Fhgsgonmzqe Wound Cultureon 82-14-6075Iqdlxpjhjlf Wound Culture ORGANISM: Methicillin Resis Staph Aureus [...] RESISTANT TO ALL B-LACTAM DRUGS. PERFORMED BY: [place] [address] PATHOLOGIST SOLDERER DIPPER STEVE ANGEL M.D.[facility] Physician GroupComment on above: Performed By: #### CUSUP #### [facility] [address] [place] [address] USACT CSPINE WO CONon 56-70-3160LQ BARIINE WO CONEXAM: CT BARIINE WO CON [...] Electronically authenticated by: ANGEL SAID Date: 2022-12-06 06:37[facility] CenterCT FACIAL BONES WO CONon 47-26-6506NQ FACIAL BONES WO CONEXAM: CT FACIAL BONES [...] Electronically authenticated by: ANGEL SAID Date: 2022-12-06 06:41NoBerger HospitalCT HEAD WO CONon 87-10-3554VI HEAD WO CONEXAM: CT HEAD WO CON [...] Electronically authenticated by: ANGEL SAID Date: 2022-12-06 06:39[facility] CenterXR ELBOW RT MIN 3 VIEWSon 00-30-0378YM ELBOW RT MIN 3 VIEWS Exam: Radiographs: XR ELBOW RT MIN 3 VIEWS Reason for exam: Elbow pain Comparison: None IMPRESSION: Right elbow degenerative changes. Olecranon spur. Remainder of the right elbow is unremarkable. Electronically authenticated by: MICHAEL CASANOVA Date: 2022-12-06 07:22NoBerger HospitalXR FOREARM RT 2Von 52-58-4890HK FOREARM RT 2VExam: Radiographs: XR FOREARM RT 2V Reason for exam: Forearm pain Comparison: None IMPRESSION: Mild degenerative changes in the right elbow and wrist. Right forearm is otherwise unremarkable. Electronically authenticated by: MICHAEL CASANOVA Date: 2022-12-06 08:07NoBerger HospitalPSA, FREE AND TOTAL RATIOon 12-03-2022% Free PSA9.0 %NormalThe Kindred HealthcareComment on above:Result Comment: The table below lists [...] population of men.Performed By: #### PSAFREE #### [facility] [address] [place] [address] Dr. Shabnam RaeMusc Health [facility] specific Ag [Mass/Vol]5.9 ng/mLCritically high0.0-4.0The Kindred HealthcareComment on above:Result Comment: Francheska ECLIA methodology. . According to the [place] [employer], Serum PSA should decrease and [...] of malignant disease.Performed By: #### PSAFREE #### [facility] [address] [place] [address] Dr. Shabnam RaePSA, Free0.53 ng/mLNormalN/AThe Kindred HealthcareComment on above:Result Comment: Francheska ECLIA methodology.Performed By: #### PSAFREE #### [facility] [address] [place] [address] Dr. Shabnam RaeINSULINon 53-53-0781Vsxamaq28.2 uIU/mLNormal2.6-24.9The Kindred HealthcareComment on above:Performed By: #### PSASC #### [facility] [address] [place] [address] Dr. Shabnam RaeTESTOSTERONE, TOTALon 17-85-1621Dqrhmgwmvkdl [Mass/Vol]256 ng/dL Critically bzc104-579Tdj Kindred HealthcareComment on above:Result Comment: Adult male reference interval is based on a population of healthy nonobese males (BMI <30) between 19 and 39 years old. Dima et.al. JCEM 2017,102;1051-2782. PMID: [id number].Performed By: #### PSASC #### [facility] [address] [place] [address] Dr. Shabnam Dunham AUTO DIFFon 75-77-7912UDLQ #0.1 103/ulNormal0.0-0.1Madison HealthComment on above:Performed By: #### PSASC #### [facility] [address] [place] [address] Dr. Shabnam RaeBasophils/100 WBC (Bld)1.0 %Normal0.2-2.0The [facility] Comment on above:Performed By: #### PSASC #### [facility] [address] [place] [address] Dr. Shabnam Rivera #0.1 103/ulNormal0.0-0.7The Kindred HealthcareComment on above: Performed By: #### PSASC #### [facility] [address] [place] [address] Dr. Shabnam Samosinophils/100 WBC (Bld)1.8 %Normal0.9-7.0[facility] Comment on above:Performed By: #### PSASC #### [facility] [address] [place] [address] Dr. Shabnam Samrythrocyte distribution width (RBC) [Ratio]14.8 %Ozddrd03.0-15.0 The Kindred HealthcareComment on above:Performed By: #### PSASC #### [facility] [address] [place] [address] Dr. Shabnam RaeHematocrit (Bld) [Volume fraction]49.9 %Jfwpfy26.0-54.0The Kindred HealthcareComment on above:Performed By: #### PSASC #### [facility] [address] [place] [address] Dr. hSabnam RaeHemoglobin (Bld) [Mass/Vol]16.0 g/nESbakte18.0-18.0The Kindred HealthcareComment on above:Performed By: #### PSASC #### [facility] [address] [place] [address] Dr. Shabnam Hayward #0.04 10e3/ulCritically high0.00-0.03[facility] Comment on above:Performed By: #### PSASC #### [facility] [address] [place] [address] Dr. Shabnam Hayward %0.6 %Critically high0.0-0.5ThBellevue HospitalComment on above:Performed By: #### PSASC #### [facility] [address] [place] [address] Dr. Shabnam PandyaH #1.0 103/ulCritically low1.2-3.8The [facility] Comment on above:Performed By: #### PSASC #### [facility] [address] [place] [address] Dr. Shabnam Diazmphocytes/100 WBC (Bld)16.2 %Critically low20.5-60.0The Kindred HealthcareComment on above:Performed By: #### PSASC #### [facility] [address] [place] [address] Dr. Shabnam Daniel DIFF REQNONormalThe Kindred HealthcareComment on above: Performed By: #### PSASC #### [facility] [address] [place] [address] Dr. Shabnam Nava (RBC) [Entitic mass]27.7 ofLkkvtt66.9-34.0The Kindred HealthcareComment on above:Performed By: #### PSASC #### [facility] [address] [place] [address] Dr. Shabnam Nava (RBC) [Mass/Vol]32.1 g/aOHwwocd14.9-35.2The Kindred HealthcareComment on above:Performed By: #### PSASC #### [facility] [address] [place] [address] Dr. Shabnam Nava (RBC) [Entitic vol]86.3 nNLszvzm97.0-94.0The Kindred HealthcareComment on above:Performed By: #### PSASC #### [facility] [address] [place] [address] Dr. Shabnam Mcfarland #0.5 103/ulNormal0.3-0.8The Kindred HealthcareComment on above:Performed By: #### PSASC #### [facility] [address] [place] [address] Dr. Shabnam Brunnerocytes/100 WBC (Bld)7.6 %Normal1.7-12.0The [facility] Comment on above:Performed By: #### PSASC #### [facility] [address] [place] [address] Dr. Shabnam Medrano #4.6 103/ulNormal1.4-6.5The Kindred HealthcareComment on above:Performed By: #### PSASC #### [facility] [address] [place] [address] Dr. Shabnam Larautrophils/100 WBC (Bld)72.8 %Huaqys81.0-75.0The Kindred HealthcareComment on above:Performed By: #### PSASC #### [facility] [address] [address] [address] Shabnam Miranda mean volume (Bld) [Entitic vol]9.8 fLNormal9.5-13.5The Kindred HealthcareComment on above:Performed By: #### PSASC #### [facility] [address] [address] [address] Shabnam RaePLT203 103/eyIuvpba548-858Huw Kindred HealthcareComment on above: Performed By: #### PSASC #### [facility] [address] [place] [address] Dr. Shabnam RaeRBC5.78 106/ulNormal4.70-6.10The Kindred HealthcareComment on above:Performed By: #### PSASC #### [facility] [address] [place] [address] Dr. Shabnam RaeWBC6.3 103/ulNormal4.0-11.0The Kindred HealthcareComment on above: Performed By: #### PSASC #### [facility] [address] [place] [address] Dr. Shabnam RaeFRPRISCILLA THYROXINE INDEX T7on 44-68-6195NQT2.43Bdqucf9.30-4.50The Kindred HealthcareComment on above:Performed By: #### TSH, CMP, LIPID, T7, URIC #### [facility] [address] [address] [address] Shabnam RaeT3U33.0 %Akyvcv87.0-40.0The Kindred HealthcareComment on above: Performed By: #### TSH, CMP, LIPID, T7, URIC #### [facility] [address] [address] [address] Shabnam RaeT4 [Mass/Vol]6.20 ug/dLNormal4.50-12.10The [facility] Comment on above:Performed By: #### TSH, CMP, LIPID, T7, URIC #### [facility] [address] [address] [address] Shabnam RaeGLYCOHEMOGLOBIN A1Con 44-30-7069HTA RECOMMENDATIONSEE BELOWNormal The Kindred HealthcareComment on above:Result Comment: ADA RECOMMENDED LIMIT 4.0 - 6.0 ADA THERAPEUTIC TARGET < 7.0 ACTION SUGGESTED > 7.0Performed By: #### PSASC #### [facility] [address] [place] [address] Dr. Shabnam RaeGlucose [Mass/Vol]114 mg/dLNoBerger HospitalComment on above:Performed By: #### PSASC #### [facility] [address] [place] [address] Dr. Shabnam RaeHbA1c (Bld) [Mass fraction]5.6 %Normal4.5-6.2The Kindred HealthcareComment on above:Performed By: #### PSASC #### [facility] [address] [place] [address] Dr. Shabnam RaeLIPID PROFILEon 13-42-1399GHGX-HDL RATIO NORMSEE Protestant HospitalComment on above:Result Comment: 3.3 - 4.4 LOW RISK 4.4 - 7.1 AVERAGE RISK 7.1 - 11.0 MODERATE RISK >11.0 HIGH RISKPerformed By: #### TSH, CMP, LIPID, T7, URIC #### [facility] [address] [place] [address] Dr. Shabnam Mckeonesterol [Mass/Vol]176 mg/dLNormal<=200The [facility] Comment on above:Performed By: #### TSH, CMP, LIPID, T7, URIC #### [facility] [address] [address] [address] Shabnam RaeCholesterol in HDL [Mass/Vol]48 mg/lGFkdsgl13-60Zjl [facility] HealthcareComment on above:Performed By: #### TSH, CMP, LIPID, T7, URIC #### [facility] [address] [place] [address] Dr. Shabnam Mckeonesterol in LDL [Mass/Vol]108.2 mg/dLNoBerger HospitalComment on above:Performed By: #### TSH, CMP, LIPID, T7, URIC #### [facility] [address] [address] [address] Shabnam RaeCholesterol.total/Cholesterol in HDL [Mass ratio]3.7 {ratio} NormalThe Kindred HealthcareComment on above:Performed By: #### TSH, CMP, LIPID, T7, URIC #### [facility] [address] [address] [address] Shabnam Hanley NORMAL> or = 60 mg/dl - LOW CARDIOVASCULAR RISK <40 mg/dl - HIGH CARDIOVASCULAR RISKOhioHealth Southeastern Medical CenterComment on above:Performed By: #### TSH, CMP, LIPID, T7, URIC #### [facility] [address] [address] [address] Shabnam RaeLDL CALC NORMALSEE BELOWOhioHealth Southeastern Medical CenterComment on above:Result Comment: <100 mg/dl OPTIMAL 100 - 129 mg/dl NEAR OR ABOVE OPTIMAL 130 - 159 mg/dl BORDERLINE HIGH 160 - 189 mg/dl HIGH >190 mg/dl VERY HIGH Performed By: #### TSH, CMP, LIPID, T7, URIC #### [facility] [address] [address] [address] Shabnam RaeTriglyceride [Mass/Vol]99 mg/dLNormal<=150The [facility] Comment on above:Performed By: #### TSH, CMP, LIPID, T7, URIC #### [facility] [address] [address] [address] Shabnam RaeVLDL CALC19.8 mg/dLNoBerger HospitalComment on above: Performed By: #### TSH, CMP, LIPID, T7, URIC #### [facility] [address] [address] [address] Shabnam RaePROF 14(COMP METB)on 05-61-5542Zdymroj [Mass/Vol]4.1 g/dLNormal 3.4-5.0The [facility] Centerment on above:Performed By: #### TSH, CMP, LIPID, T7, URIC #### [facility] [address] [address] [address] Shabnam RaeAlbumin/Globulin [Mass ratio]1.1 {ratio}NormalThe Kindred HealthcareComment on above:Performed By: #### TSH, CMP, LIPID, T7, URIC #### [facility] [address] [place] [address] Dr. Shabnam Rizzo [Catalytic activity/Vol]101 U/CLzpflu29-397Tyn [facility] HealthcareComment on above:Performed By: #### TSH, CMP, LIPID, T7, URIC #### [facility] [address] [place] [address] Dr. Shabnam Sofia [Catalytic activity/Vol]26 U/GLzkagf88-91Hjk [facility] HealthcareComment on above:Performed By: #### TSH, CMP, LIPID, T7, URIC #### [facility] [address] [place] [address] Dr. Shabnam Johnsonon gap [Moles/Vol]10.1 mmol/LNormalThe [facility] Comment on above:Performed By: #### TSH, CMP, LIPID, T7, URIC #### [facility] [address] [place] [address] Dr. Shabnam Jean [Catalytic activity/Vol]19 U/UTrciqo75-02Rqt [facility] HealthcareComment on above:Performed By: #### TSH, CMP, LIPID, T7, URIC #### [facility] [address] [place] [address] Dr. Shabnam RaeBilirubin [Mass/Vol]0.8 mg/dLNormal0.2-1.0[facility] Comment on above:Performed By: #### TSH, CMP, LIPID, T7, URIC #### [facility] [address] [place] [address] Dr. Shabnam RaeCalcium [Mass/Vol]9.5 mg/dLNormal8.5-10.1[facility] Comment on above:Performed By: #### TSH, CMP, LIPID, T7, URIC #### [facility] [address] [place] [address] Dr. Shabnam RaeChloride [Moles/Vol]102 mmol/BMgmuwo44-950Uco [facility] Comment on above:Performed By: #### TSH, CMP, LIPID, T7, URIC #### [facility] [address] [place] [address] Dr. Shabnam RaeCO2 [Moles/Vol]32.4 mmol/LCritically high21.0-32.0The [facility]red HealthcareComment on above:Performed By: #### TSH, CMP, LIPID, T7, URIC #### [facility] [address] [place] [address] Dr. Shabnam RaeCreatinine [Mass/Vol]1.00 mg/dLNormal0.70-1.30The [facility]red HealthcareComment on above:Performed By: #### TSH, CMP, LIPID, T7, URIC #### [facility] [address] [place] [address] Dr. Shabnam SamGFR-AF ANGOLAN>60Normal>=60The Kindred HealthcareComment on above:Performed By: #### TSH, CMP, LIPID, T7, URIC #### [facility] [address] [place] [address] Dr. Shabnam SamGFR-NON AF ANGOLAN>60Normal>=60The [facility]red HealthcareComment on above:Performed By: #### TSH, CMP, LIPID, T7, URIC #### [facility] [address] [place] [address] Dr. Shabnam RaeGlobulin (S) [Mass/Vol]3.8 g/dLNormalThe [facility]red HealthcareComment on above:Performed By: #### TSH, CMP, LIPID, T7, URIC #### [facility] [address] [place] [address] Dr. Shabnam RaeGlucose [Mass/Vol]94 mg/mSDttcgc47-124LizMadison Health Comment on above:Performed By: #### TSH, CMP, LIPID, T7, URIC #### [facility] [address] [place] [address] Dr. Shabnam RaePotassium [Moles/Vol]3.5 mmol/LNormal3.5-5.1The [facility] Comment on above:Performed By: #### TSH, CMP, LIPID, T7, URIC #### [facility] [address] [place] [address] Dr. Shabnam RaeProtein [Mass/Vol]7.9 g/dLNormal6.4-8.2The [facility] Comment on above:Performed By: #### TSH, CMP, LIPID, T7, URIC #### [facility] [address] [place] [address] Dr. Shabnam RaeSodium [Moles/Vol]141 mmol/WRplymc477-682Rcw [facility] Comment on above:Performed By: #### TSH, CMP, LIPID, T7, URIC #### [facility] [address] [place] [address] Dr. Shabnam RaeUrea nitrogen [Mass/Vol]15.0 mg/dLNormal7.0-18.0The [facility]red HealthcareComment on above:Performed By: #### TSH, CMP, LIPID, T7, URIC #### [facility] [address] [place] [address] Dr. Shabnam RaeUrea nitrogen/Creatinine [Mass ratio]15.0 mg/mgNormalThe Kindred HealthcareComment on above:Performed By: #### TSH, CMP, LIPID, T7, URIC #### [facility] [address] [place] [address] Dr. Shabnam GoldbergHomeaghan 08-79-0840DTM3.504 uIU/mLNormal0.358-3.740The [facility]red HealthcareComment on above:Performed By: #### TSH, CMP, LIPID, T7, URIC #### [facility] [address] [place] [address] Dr. Shabnam RaeURIC ACID SERUMon 06-69-0039Oqbqz [Mass/Vol]6.9 mg/dLNormal 3.5-7.2The [facility]red HealthcareComment on above:Performed By: #### TSH, CMP, LIPID, T7, URIC #### [facility] [address] [place] [address] Dr. Shabnam RaeTESTOSTERONE, TOTALon 69-26-6536Uthvyyspwsek [Mass/Vol]244 ng/dL Critically aku093-091Ool [facility]red HealthcareComment on above:Result Comment: Adult male reference interval is based on a population of healthy nonobese males (BMI <30) between 19 and 39 years old. Dima, et.al. [facility] [place],102;4069-7444. PMID: [id number].Performed By: #### PSAFREE #### [facility] [address] [place] [address] Dr. Shabnam RaeTESTOSTERONE, FREE,DIRECT, TOTALon 91-40-3185Zfry Testosterone(Direct)2.1 pg/mLCritically low7.2-24.0Madison HealthComment on above:Result Comment: Performed at: BNPerformed By: #### CVDTBH #### [facility] [address] [place] [address] Dr. Shabnam RaeTestosterone [Mass/Vol]252 ng/dLCritically pks579-899Ker [facility] HealthcareComment on above:Result Comment: Adult male reference interval is based on a population of healthy nonobese males (BMI <30) between 19 and 39 years old. Travbrad, et.al. [facility] [place] 2017,102;8767-7208. PMID: [id number]. Performed at: CBPerformed By: #### CVDTBH #### [facility] [address] [place] [address] Dr. Shabnam Ashford 94-62-3039Dukjz [id number]#1.00CD:127[facility] Hospitalcreenson 38-63-5174Hwgtnqt [id number]#1.00CD:127NoParkview Health Bryan [id number]#1.00CD:127[facility] HospitalUrology Office/Clinic Noteon 19-93-4080Mscminh Office/Clinic NoteChief Complaint referred Hydrocele HPI Staff [...] Ongoing No qualifying data (more content not included)...[facility] HospitalComment on above:Result Comment: Electronically Signed By: Viola Grullon MD\.br\Date and Time Signed: 02/26/22 00:20EDT\.br\Electronically Co-Signed By: Helen Leung\.br\Date and Time Co-Signed: 02/25/22 11:16 EDTAmbulatory Visit Summaryon 31-49-0401Rlqwvvxtrh Visit Summary MATTY GARCES :1970 Visit Date:02/25/2022 Ambulatory Visit Instructions Your Diagnosis Hydrocele Varicocele BPH without urinary obstruction Tests Performed Urnls Dip Stick Auto w/o Microscopy POC 77518 Your Care Team Attending Physician - Viola [...] Urnls Dip Stick Auto w/o Microscopy POC 85700 (02/25/2022) Bilirubin Urine Dipstick - Negative Blood Urine Dipstick - Negative Glucose Urine Dipstick - Negative Ketones Urine Dipstick - Negative Leukocytes Urine Dipstick - Negative Nitrite Urine Dipstick - Negative Protein Urine Dipstick - Negative Specific [place] Urine Dipstick - >=1.030 Urine Appearance Urine [...] the hydrocele for any changes. ? Take jujx-rje-xvpathk and prescription medicines only as told by [...] is not intended t (more content not included)...[facility] Educationon 23-86-2742Qihmwdb EducationUrology Hydrocele, Adult A hydrocele is a [...] the hydrocele for any changes. ? Take fzzx-jtj-uoqsyuu and prescription medicines only as told by [...] Reviewed: 09/10/2018 Elsevier Patient Education ? 2019 [employer].[facility] ED Note-Physicianon 75-52-0867BF Note-Physician [id number]#1.00CD:[address] [place], [place] [address]RAD - Ultrasound Reporton 72-04-0542FBV - Ultrasound Report [id number]#1.00CD:[address] [place], [place] [address]RAD - CT Reporton 63-16-4563QWE - CT Report [id number]#1.00CD:[address] [place], [place] [address]RAD - CT [id number]#1.00CD:[address] [place], [place] [address]CBC AUTO DIFFon 08-38-1513YBDJ #0.0 103/ulNormal 0.0-0.1The Kindred HealthcareComment on above:Performed By: #### PSAFRPRISCILLA #### [facility] [address] [address] [address] Shabnam Benavidezphils/100 WBC (Bld)0.6 %Normal0.2-2.0The [facility] Comment on above:Performed By: #### PSAFREE #### [facility] [address] [address] [address] Shabnam Rivera #0.1 103/ulNormal0.0-0.7The Kindred HealthcareComment on above: Performed By: #### PSAFREE #### [facility] [address] [place] [address] Dr. Shabnam Samosinophils/100 WBC (Bld)2.1 %Normal0.9-7.0The [facility] Comment on above:Performed By: #### PSAFREE #### [facility] [address] [place] [address] Dr. Shabnam Samrythrocyte distribution width (RBC) [Ratio]13.1 %Lfuvgh28.0-15.0 The Kindred HealthcareComment on above:Performed By: #### PSAFREE #### [facility] [address] [place] [address] Dr. Shabnam RaeHematocrit (Bld) [Volume fraction]43.1 %Jixmum43.0-54.0The Kindred HealthcareComment on above:Performed By: #### PSAFREE #### [facility] [address] [place] [address] Dr. Shabnam RaeHemoglobin (Bld) [Mass/Vol]13.7 g/dLCritically low14.0-18.0The [facility]red HealthcareComment on above:Performed By: #### PSAFREE #### [facility] [address] [place] [address] Dr. Shabnam Hayward #0.04 10e3/ulCritically high0.00-0.03The [facility] Comment on above:Performed By: #### PSAFREE #### [facility] [address] [place] [address] Dr. Shabnam Hayward %0.6 %Critically high0.0-0.5The Kindred HealthcareComment on above:Performed By: #### PSAFREE #### [facility] [address] [place] [address] Dr. Shabnam Gomez #0.9 103/ulCritically low1.2-3.8The [facility] Comment on above:Performed By: #### PSAFREE #### [facility] [address] [place] [address] Dr. Shabnam Diazmphocytes/100 WBC (Bld)13.1 %Critically low20.5-60.0The Kindred HealthcareComment on above:Performed By: #### PSAFREE #### [facility] [address] [place] [address] Dr. Shabnam Daniel DIFF REQNONormalThe Kindred HealthcareComment on above: Performed By: #### PSAFREE #### [facility] [address] [place] [address] Dr. Shabnam Nava (RBC) [Entitic mass]29.5 qzNowjft52.9-34.0The Kindred HealthcareComment on above:Performed By: #### PSAFREE #### [facility] [address] [place] [address] Dr. Shbanam Nava (RBC) [Mass/Vol]31.8 g/lMEuranj97.9-35.2The [facility]red HealthcareComment on above:Performed By: #### PSAFREE #### [facility] [address] [place] [address] Dr. Shabnam Nava (RBC) [Entitic vol]92.9 kCJwcqpq34.0-94.0[facility] HealthComment on above:Performed By: #### PSAFREE #### [facility] [address] [place] [address] Dr. Shabnam Mcfarland #0.4 103/ulNormal0.3-0.8The Kindred HealthcareComment on above:Performed By: #### PSAFREE #### [facility] [address] [place] [address] Dr. Shabnam Brunnerocytes/100 WBC (Bld)5.4 %Normal1.7-12.0[facility] Comment on above:Performed By: #### PSAFREE #### [facility] [address] [place] [address] Dr. Shabnam Medrano #5.2 103/ulNormal1.4-6.5The Kindred HealthcareComment on above:Performed By: #### PSAFREE #### [facility] [address] [place] [address] Dr. Shabnam Larautrophils/100 WBC (Bld)78.2 %Critically high43.0-75.0The [facility]red HealthcareComment on above:Performed By: #### PSAFREE #### [facility] [address] [place] [address] Dr. Shabnam Miranda mean volume (Bld) [Entitic vol]10.9 fLNormal9.5-13.5The [facility]red HealthcareComment on above:Performed By: #### PSAFREE #### [facility] [address] [place] [address] Dr. Shabnam RaePLT153 103/tuIqcacl640-396Tkr [facility] HealthcareComment on above: Performed By: #### PSAFREE #### [facility] [address] [place] [address] Dr. Shabnam RaeRBC4.64 106/ulCritically low4.70-6.10The Kindred HealthcareComment on above:Performed By: #### PSAFREE #### [facility] [address] [place] [address] Dr. Shabnam RaeWBC6.6 103/ulNormal4.0-11.0The Kindred HealthcareComment on above: Performed By: #### PSAFREE #### [facility] [address] [place] [address] Dr. Shabnam Bang 94-00-6689LIG6.9 mg/dLNormal<=1.0The [facility] Comment on above:Performed By: #### PSAFREE #### [facility] [address] [place] [address] Dr. Shabnam Ortiz 14(COMP METB)on 04-24-7508Skwlbve [Mass/Vol]3.6 g/dLNormal 3.4-5.0The [facility]red HealthcareComment on above:Performed By: #### PSAFREE #### [facility] [address] [address] [address] Shabnam RaeAlbumin/Globulin [Mass ratio]1.0 {ratio}NormalThe Kindred HealthcareComment on above:Performed By: #### PSAFREE #### [facility] [address] [address] [address] Shabnam JohnstonP [Catalytic activity/Vol]114 U/TYcbfab57-547Knu [facility]red HealthcareComment on above:Performed By: #### PSAFREE #### [facility] [address] [address] [address] Shabnam Sofia [Catalytic activity/Vol]26 U/PGwzcsy81-70Tmk [facility] HealthcareComment on above:Performed By: #### PSAFREE #### [facility] [address] [address] [address] Shabnam Johnsonon gap [Moles/Vol]9.3 mmol/LNormalThe [facility]red HealthcareComment on above:Performed By: #### PSAFREE #### [facility] [address] [address] [address] Shabnam RaeAST [Catalytic activity/Vol]19 U/LPbxgds17-15Yij [facility] HealthcareComment on above:Performed By: #### PSAFREE #### [facility] [address] [address] [address] Shabnam RaeBilirubin [Mass/Vol]0.5 mg/dLNormal0.2-1.0The [facility] Comment on above:Performed By: #### PSAFREE #### [facility] [address] [address] [address] Shabnam RaeCalcium [Mass/Vol]8.9 mg/dLNormal8.5-10.1The [facility] Comment on above:Performed By: #### PSAFREE #### [facility] [address] [address] [address] Shabnam RaeChloride [Moles/Vol]106 mmol/VNdjseu65-134Ohh [facility] Comment on above:Performed By: #### PSAFREE #### [facility] [address] [address] [address] Shabnam RaeCO2 [Moles/Vol]30.7 mmol/ZKvvhvh82.0-32.0The [facility] Comment on above:Performed By: #### PSAFREE #### [facility] [address] [address] [address] Shabnam RaeCreatinine [Mass/Vol]1.15 mg/dLNormal0.70-1.30The [facility]red HealthcareComment on above:Performed By: #### PSAFREE #### [facility] [address] [address] [address] Shabnam SamGFR-AF ANGOLAN>60Normal>=60The [facility]red HealthcareComment on above:Performed By: #### PSAFREE #### [facility] [address] [address] [address] Shabnam SamGFR-NON AF ANGOLAN>60Normal>=60The [facility] HealthcareComment on above:Performed By: #### PSAFREE #### [facility] [address] [address] [address] Shabnam RaeGlobulin (S) [Mass/Vol]3.6 g/dLNormalThe [facility]red HealthcareComment on above:Performed By: #### PSAFREE #### [facility] [address] [address] [address] Shabnam RaeGlucose [Mass/Vol]117 mg/dLCritically hdwo62-326Nro [facility] HealthcareComment on above:Performed By: #### PSAFREE #### [facility] [address] [address] [address] Shabnam RaePotassium [Moles/Vol]4.0 mmol/LNormal3.5-5.1The [facility] Comment on above:Performed By: #### PSAFREE #### [facility] [address] [address] [address] Shabnam RaeProtein [Mass/Vol]7.2 g/dLNormal6.1-8.2The [facility] Comment on above:Performed By: #### PSAFREE #### [facility] [address] [address] [address] Shabnam RaeSodium [Moles/Vol]142 mmol/OMzqmda589-337Rht [facility] Comment on above:Performed By: #### PSAFREE #### [facility] [address] [address] [address] Shabnam RaeUrea nitrogen [Mass/Vol]15.0 mg/dLNormal7.0-18.0The [facility]red HealthcareComment on above:Performed By: #### PSAFREE #### [facility] [address] [address] [address] Shabnam Gu nitrogen/Creatinine [Mass ratio]13.0 mg/mgNormalThe [facility]red HealthcareComment on above:Performed By: #### PSAFREE #### [facility] [address] [address] [address] Shabnam Floyd SCROTUMon 56-60-2518UN SCROTUMEXAMINATION: US SCROTUM HISTORY: Acute pelvic pain [...] Electronically authenticated by: ALVINA CAICEDO Date: 2022-01-05 08:48NormalThBrown [facility] Hospital AUTO DIFFon 30-78-5935LNWB #0.1 103/ulNormal0.0-0.1The [facility] HealthcareComment on above:Performed By: #### CBC #### [facility] [address] [address] [address] Shabnam RaeBasophils/100 WBC (Bld)0.8 %Normal0.2-2.0The [facility] Comment on above:Performed By: #### CBC #### [facility] [address] [place] [address] Dr. Shabnam Rivera #0.1 103/ulNormal0.0-0.7The [facility]red HealthcareComment on above: Performed By: #### CBC #### [facility] [address] [place] [address] Dr. Shabnam Samosinophils/100 WBC (Bld)1.5 %Normal0.9-7.0The [facility] Comment on above:Performed By: #### CBC #### [facility] [address] [place] [address] Dr. Shabnam Samrythrocyte distribution width (RBC) [Ratio]12.8 %Mjcmre34.0-15.0 [facility] HealthComment on above:Performed By: #### CBC #### [facility] [address] [place] [address] Dr. Shabnam RaeHematocrit (Bld) [Volume fraction]40.3 %Critically low42.0-54.0 The [facility]red HealthcareComment on above:Performed By: #### CBC #### [facility] [address] [place] [address] Dr. Shabnam RaeHemoglobin (Bld) [Mass/Vol]13.4 g/dLCritically low14.0-18.0The [facility]red HealthcareComment on above:Performed By: #### CBC #### [facility] [address] [address] [address] Shabnam Hayward #0.03 10e3/ulNormal0.00-0.03The [facility]red HealthcareComment on above:Performed By: #### CBC #### [facility] [address] [address] [address] Shabnam Hayward %0.5 %Normal0.0-0.5The [facility]red HealthcareComment on above: Performed By: #### CBC #### [facility] [address] [address] [address] Shabnam Gomez #1.0 103/ulCritically low1.2-3.8The [facility] Comment on above:Performed By: #### CBC #### [facility] [address] [place] [address] Dr. Shabnam Pandyahocytes/100 WBC (Bld)16.4 %Critically low20.5-60.0The [facility]red HealthcareComment on above:Performed By: #### CBC #### [facility] [address] [place] [address] Dr. Shabnam GranadoUAL DIFF REQNONormalThe [facility]red HealthcareComment on above: Performed By: #### CBC #### [facility] [address] [place] [address] Dr. Shabnam Nava (RBC) [Entitic mass]29.5 hpNpdkda73.9-34.0The [facility]red HealthcareComment on above:Performed By: #### CBC #### [facility] [address] [place] [address] Dr. Shabnam Nava (RBC) [Mass/Vol]33.3 g/zLMldpnb61.9-35.2The [facility]red HealthcareComment on above:Performed By: #### CBC #### [facility] [address] [place] [address] Dr. Shabnam Nava (RBC) [Entitic vol]88.8 xIOkbcjs99.0-94.0The [facility]red HealthcareComment on above:Performed By: #### CBC #### [facility] [address] [address] [address] Shabnam Mcfarland #0.6 103/ulNormal0.3-0.8The [facility]red HealthcareComment on above:Performed By: #### CBC #### [facility] [address] [address] [address] Shabnam Brunnerocytes/100 WBC (Bld)9.6 %Normal1.7-12.0The [facility] Comment on above:Performed By: #### CBC #### [facility] [address] [place] [address] Dr. Shabnam Medrano #4.4 103/ulNormal1.4-6.5The [facility]red HealthcareComment on above:Performed By: #### CBC #### [facility] [address] [place] [address] Dr. Shabnam Larautrophils/100 WBC (Bld)71.2 %Hdbtdq22.0-75.0The [facility]red HealthcareComment on above:Performed By: #### CBC #### [facility] [address] [place] [address] Dr. Shabnam Miranda mean volume (Bld) [Entitic vol]10.8 fLNormal9.5-13.5The [facility]red HealthcareComment on above:Performed By: #### CBC #### [facility] [address] [place] [address] Dr. Shabnam RaePLT158 103/trJdkmyv174-216Mlk [facility] HealthcareComment on above: Performed By: #### CBC #### [facility] [address] [place] [address] Dr. Shabnam RaeRBC4.54 106/ulCritically low4.70-6.10The [facility]red HealthcareComment on above:Performed By: #### CBC #### [facility] [address] [place] [address] Dr. Shabnam RaeWBC6.2 103/ulNormal4.0-11.0The [facility]red HealthcareComment on above: Performed By: #### CBC #### [facility] [address] [address] [address] Shabnam RaeCT ABD/PELV W CONon 64-13-4106XV ABD/PELV W CONCT ABD/PELV W CON: 01/04/2022 [...] by: MAYRA BERNAL Date: 2022-01-04 05:19Normal The Kindred HealthcareCT PELVIS WO CONon 83-43-6114DI PELVIS WO CONEXAMINATION: CT PELVIS WO CON [...] Electronically authenticated by: MANUEL HOUGH Date: 2022-01-04 08:54NormKettering Health Greene MemorialCULTURE URINEon 68-53-6163EUQFSHO URINECulture Observations: No growthNoBerger HospitalComment on above:Performed By: #### PSASC #### [facility] [address] [address] [address] Shabnam Mckinney-19 PCR ([facility])on 56-40-6295OGBD-CoV-2 (COVID-19) RNA ELIJAH+probe Ql (Unsp spec)Not detectedNormalNOT DETECTEDThe [facility] Comment on above:Result Comment: When diagnostic testing is negative, the possibility of a false negative should be considered in the context of a patient's recent exposures and the presence of clinical signs and symptoms consistent with SARS-CoV-2. This test is not yet approved or cleared by the [place] Food and Drug Administration (FDA). This test was developed by [employer], [place], [place]. The performance characteristics of this test were validated by [facility]. The results are not intended to be used as the sole means for clinical diagnosis or patient management decisions. [facility] is authorized under Clinical Laboratory Improvement Amendments [...] for this test is supported by the Front Clerk of Health and Human Service's declaration that [...] longer be used).Performed By: #### CVDTBH #### [facility] [address] [place] [address] Dr. Shabnam Cedillo URINE PROFILEon 18-26-9831Hdstdvonr Ql (U)NegativeNormal NEGATIVEThe [facility]red HealthcareComment on above:Performed By: #### PSASC #### [facility] [address] [place] [address] Dr. Shabnam Haile (U)CLEARNormalCLEARThe [facility] HealthcareComment on above: Performed By: #### PSASC #### [facility] [address] [place] [address] Dr. Shabnam Mason (U)YELLOWNormalYELLOWKettering Health Behavioral Medical Center on above: Performed By: #### PSASC #### [facility] [address] [place] [address] Dr. Shabnam Plummer micrscopic examination will be performed if indicated. NormalThe [facility]red HealthcareComment on above:Performed By: #### PSASC #### [facility] [address] [address] [address] Shabnam RaeGlucose Ql (U)NegativeNormalNEGATIVEMadison HealthComment on above:Performed By: #### PSASC #### [facility] [address] [address] [address] Shabnam RaeHemoglobin Ql (U)NegativeNormalNEGATIVEMadison Health Comment on above:Performed By: #### PSASC #### [facility] [address] [address] [address] Shabnam RaeKetones Ql (U)NegativeNormalNEGATIVEMadison HealthComment on above:Performed By: #### PSASC #### [facility] [address] [place] [address] Dr. Shabnam RaeLEUKOCYTESNegativeNormalNEGATIVEMadison HealthComment on above:Performed By: #### PSASC #### [facility] [address] [place] [address] Dr. Shabnam RaeNitrite Ql (U)NegativeNormalNEGATIVEMadison HealthComment on above:Performed By: #### PSASC #### [facility] [address] [place] [address] Dr. Shabnam RaepH (U)6.5 [pH]Normal5-9Madison HealthComment on above: Performed By: #### PSASC #### [facility] [address] [address] [address] Shabnam RaeSPEC GRAVITY1.238Xmjjtw8.005-<=1.025Madison HealthComment on above:Performed By: #### PSASC #### [facility] [address] [place] [address] Dr. Shabnam RaeUA PROTEINNegativeNormalNEGATIVE/ TRACEMadison Health Comment on above:Performed By: #### PSASC #### [facility] [address] [place] [address] Dr. Shabnam RaeUR MICRO INDNOT INDICATEDNoalThBellevue HospitalComment on above:Performed By: #### PSASC #### [facility] [address] [place] [address] Dr. Shabnam Wubilinogen Qn (U)0.2 {Sarai'U}/dLNormal0.2 - 1.0The [facility] HealthcareComment on above:Performed By: #### PSASC #### [facility] [address] [place] [address] Dr. Shabnam RaeLACTATE/LACTIC ACIDon 33-52-1014Qigiyje [Moles/Vol]1.0 mmol/L Normal0.4-2.0The [facility] HealthcareComment on above:Performed By: #### PSASC #### [facility] [address] [place] [address] Dr. Shabnam MoonF CHEM 8 (BAS METB)on 13-10-4730Qepuk gap [Moles/Vol]10.0 mmol/LNormalThe [facility]red HealthcareComment on above:Performed By: #### BMP #### [facility] [address] [place] [address] Dr. Shabnam RaeCalcium [Mass/Vol]8.5 mg/dLNormal8.5-10.1The [facility] Comment on above:Performed By: #### BMP #### [facility] [address] [place] [address] Dr. Shabnam RaeChloride [Moles/Vol]103 mmol/WUwylth95-668Wza [facility] Comment on above:Performed By: #### BMP #### [facility] [address] [place] [address] Dr. Shabnam RaeCO2 [Moles/Vol]29.2 mmol/VZzakta09.0-32.0The [facility] Comment on above:Performed By: #### BMP #### [facility] [address] [place] [address] Dr. Shabnam RaeCreatinine [Mass/Vol]1.25 mg/dLNormal0.70-1.30The [facility] HealthcareComment on above:Performed By: #### BMP #### [facility] [address] [place] [address] Dr. Shabnam SamGFR-AF ANGOLAN>60Normal>=60The [facility] HealthcareComment on above:Performed By: #### BMP #### [facility] [address] [place] [address] Dr. Shabnam SamGFR-NON AF ANGOLAN>60Normal>=60The [facility] HealthcareComment on above:Performed By: #### BMP #### [facility] [address] [place] [address] Dr. Shabnam RaeGlucose [Mass/Vol]132 mg/dLCritically rjvq15-049Lon [facility] HealthcareComment on above:Performed By: #### BMP #### [facility] [address] [place] [address] Dr. Shabnam RaePotassium [Moles/Vol]3.2 mmol/LCritically low3.5-5.1The [facility] HealthcareComment on above:Performed By: #### BMP #### [facility] [address] [place] [address] Dr. Shabnam RaeSodium [Moles/Vol]139 mmol/ZYcewlh074-412Olz [facility] Comment on above:Performed By: #### BMP #### [facility] [address] [place] [address] Dr. Shabnam RaeUrea nitrogen [Mass/Vol]19.0 mg/dLCritically high7.0-18.0The [facility] HealthcareComment on above:Performed By: #### BMP #### [facility] [address] [place] [address] Dr. Shabnam RaeUrea nitrogen/Creatinine [Mass ratio]15.2 mg/mgNormalThe [facility]red HealthcareComment on above:Performed By: #### BMP #### [facility] [address] [place] [address] Dr. Shabnam RaeCERVICAL SPINE [address] [facility] 31-60-9481NDXALEHI SPINE 2 OR 3 [facility] Department of Radiology [address] [place] [phone] Patient Name: MATTY GARCES : 1970 Sex: M Age: Race: White Pt. Location: 85 Patient Status: O Ordered Date: 07/06/2019 9:10:00 AM Completed Date: 07/06/2019 09:21 AM Requesting Provider: LUCIANO DAVIS Attending Provider: LUCIANO DAVIS Report Copy To: VENUS JAEGER Signs & Symptoms: M48.02 Spinal stenosis, cervical region I10 History: [place] Comments: , STAT READ , STAT READ [...] findings. Electronically signed by:Bernice Hoyt. Transcribed by: [email or web address], User Resident: RADHA CHIN Electronically Signed by: BERNICE HOYT @ 07/06/2019 08:52 PM I personally read this/these film(s) with this residentAkron Children's HospitalComment on above:Order Comment: , STAT READ , STAT READ , , , Ordering Provider - LUCIANO DAVIS MD , CERVICAL SPINE [address] [facility] 23-83-2110BXPTLEDJ SPINE 2 OR 3 [facility] Department of [facility]iology [address] [place] [phone] Patient Name: MATTY GARCES : 1970 [...] FALLS Exam: CERVICAL SPINE 2 OR 3 [facility] CERVICAL SPINE 2 OR 3 [facility] 04/06/2019 7:28 AM EDT SIGNS AND [...] study. Electronically signed by:Bernice Hoyt. Transcribed by: [email or web address], User Resident: Electronically Signed by: BERNICE HOYT @ 04/06/2019 04:40 [facility] HospitalComment on above:Order Comment: AP/LAT, ODONTOID PLEASE DO SWIMMER'S VIEW FOLLOW UP HARDWARE AND ALIGNMENT, S/P ACDF, RECENT FALLSCERVICAL SPINE [address] [facility] [id number] SPINE 2 OR 3 [facility] Department of Radiology [address] [place] [phone] Patient Name: MATTY GARCES : 1970 [...] findings. Electronically signed by:Bella King. Transcribed by: [email or web address], User Resident: KENNETH DUVAL Electronically Signed by: BELLA KING @ 02/20/2019 11:53 AM I personally read this/these film(s) with this residentAkron Children's HospitalComment on above:Order Comment: C-SPINE 2 OR 3 VIEW POSTOP, EVALUATION HARDWARE AN ALIGNMENTBASIC METABOLIC PANELon 44-22-2386Mbthuap [Mass/Vol]9.2 mg/dLNormal8.6-10.3The [facility] PrebleComment on above:Order Comment: No: Do not add to previous drawPerformed By: #### [id number] #### [facility] [address] [place] [address], USAChloride [Moles/Vol]101 mmol/DBjwxyh37-420Bld [facility] PrebleComment on above:Order Comment: No: Do not add to previous drawPerformed By: #### 10348 #### [facility] [address] [place] [address], USACO2 [Moles/Vol]26 mmol/CBtlife86-16Cec [facility] PrebleComment on above:Order Comment: No: Do not add to previous draw Performed By: #### 11929 #### [facility] [address] [place] [address], USACreatinine [Mass/Vol]1.02 mg/dLNormal0.70-1.30The [facility] PrebleComment on above:Order Comment: No: Do not add to previous drawPerformed By: #### 16039 #### [facility] [address] [place] [address], USAGFR/1.73 sq M predicted among blacks MDRD (S/P/Bld) [Vol rate/Area]mL/min/{1.73_m2}Normal>60The [facility] Comment on above:Order Comment: No: Do not add to previous drawPerformed By: #### 16968 #### [facility] [address] [place] [address], USAGFR/1.73 sq M predicted among non-blacks MDRD (S/P/Bld) [Vol rate/Area]mL/min/{1.73_m2}Normal>60The [facility] Comment on above:Order Comment: No: Do not add to previous drawPerformed By: #### 30706 #### [facility] [address] [place] [address], USAGlucose [Mass/Vol]124 mg/fJChns59-634Hcz [facility] PrebleComment on above:Order Comment: No: Do not add to previous drawPerformed By: #### 88423 #### [facility] [address] [place] [address], USAPotassium [Moles/Vol]3.9 mmol/LNormal3.5-5.1The [facility] PrebleComment on above:Order Comment: No: Do not add to previous drawPerformed By: #### 40509 #### [facility] [address] [place] [address], USASodium [Moles/Vol]137 mmol/MKtdwfg227-360Odh [facility] PrebleComment on above:Order Comment: No: Do not add to previous drawPerformed By: #### 08369 #### [facility] [address] [place] [address], USAUrea nitrogen [Mass/Vol]15 mg/dLNormal7-25The [facility] PrebleComment on above:Order Comment: No: Do not add to previous drawPerformed By: #### 97914 #### [facility] [address] [place] [address], USACBC COMPLETE BLOOD COUNTon 65-06-1833Iwigxtizaky distribution width (RBC) [Ratio]13.9 %Wxmqkf50.5-15.0The [facility] PrebleComment on above:Order Comment: No: Do not add to previous draw Performed By: #### 86609 #### [facility] [address] [place] [address], USAHematocrit (Bld) [Volume fraction]50.0 %Tvfbyl52.0-50.0The [facility] PrebleComment on above:Order Comment: No: Do not add to previous drawPerformed By: #### 67926 #### [facility] [address] [place] [address], USAHemoglobin (Bld) [Mass/Vol]16.0 g/fEAeitei35.0-17.0The [facility] PrebleComment on above:Order Comment: No: Do not add to previous drawPerformed By: #### 28356 #### [facility] [address] [place] [address], [facility] HOSPITALMCH (RBC) [Entitic mass]27.5 cwGwkffv05.0-33.0The [facility] PrebleComment on above:Order Comment: No: Do not add to previous drawPerformed By: #### 45653 #### [facility] [address] [place] [address], [facility] HOSPITALMCHC (RBC) [Mass/Vol]32.0 g/aSLfgslt25.0-35.0The [facility] PrebleComment on above:Order Comment: No: Do not add to previous drawPerformed By: #### 85190 #### [facility] [address] [place] [address], [facility] HOSPITALMCV (RBC) [Entitic vol]85.9 rXVuleww39.0-98.0The [facility] PrebleComment on above:Order Comment: No: Do not add to previous drawPerformed By: #### 77440 #### [facility] [address] [place] [address], USANucleated RBC/100 WBC (Bld) [Ratio]0 %Normal0-0The [facility] PrebleComment on above:Order Comment: No: Do not add to previous drawPerformed By: #### 87243 #### [facility] [address] [place] [address], USAPLAT UXU160 10*3/rMMvjxdi633-157Tyr [facility] PrebleComment on above:Order Comment: No: Do not add to previous draw Performed By: #### 08549 #### [facility] [address] [place] [address], USARBC (Bld) [#/Vol]5.82 10*6/uLHigh4.20-5.70The [facility] PrebleComment on above:Order Comment: No: Do not add to previous drawPerformed By: #### 17209 #### [facility] [address] [place] [address], USAWBC (Bld) [#/Vol]15.85 10*3/uLHigh4.00-10.60The [facility] PrebleComment on above:Order Comment: No: Do not add to previous drawPerformed By: #### 47500 #### [facility] [address] [place] [address], [facility] HOSPITALOperative Reporton [id number] ReportMR#: [id number] I [facility] Pt. Name: Matty Garces Room #: 5CD [id number] Discharge Date: Birthdate: 1970 OPERATIVE REPORT DATE OF SURGERY: 01/30/2019 SURGEON: Luciano Davis M.D. 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 POSTOPERATIVE DIAGNOSIS: Failed instrumentation at C6-7 on the right. 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 ANESTHESIA: Endotracheal, Hogan. [...] Davis M.D. Date Trans: 01/31/2019 02:31 Eze/sasha DN_JN:[id number] cc: Venus Jaeger M.D. [address] [place] [address]TsyjwsNxwAkron Children's HospitalCERVICAL SPINE 2 OR 3 Son [id number] SPINE [address] [facility]ENTERniPro[facility] Department of Radiology [address] [place] [phone] Patient Name: MATTY GARCES : 1970 [...] documentation Electronically signed by:Justus Murphy. Transcribed by: [email or web address], User Resident: Electronically Signed by: JUSTUS MURPHY @ 01/30/2019 04:18 PMNormalThe [facility] PrebleComment on above:Order Comment: C6-7 ACDFPOC GLUCOSE LABon 77-84-7144Geykajw [Mass/Vol]106 mg/kLSgzt52-001Mig [facility] PrebleComment on above:Performed By: #### 05796 #### [facility] [address] [place] [address], [facility]*MRSA/MSSA DNA NASALon 01-23-2019*MRSA/MSSA DNA NASAL Clinical Report: (D) Specimen: NASAL SWAB Collected: 01/23/2019 15:02 Status: Final Last Updated: 01/23/2019 20:14 MSSA DNA (Final) Methicillin Susceptible Staphylococcus aureus DNA Detected MRSA DNA (Final) No Methicillin Resistant Staphylococcus aureus DNA DetectedNoTriHealth Bethesda Butler HospitalComment on above:Performed By: #### [id number] #### [facility] [address] [place] [address], R[facility] HOSPITALAPTTon 10-12-6388dNSM Coag (Bld) [Time]35.4 sHigh25.0-35.0 The [facility] PrebleComment on above:Result Comment: ALL RESULTS MUST BE [...] BE USED FOR THIS PURPOSE.Performed By: #### 00058, 58552 #### [facility] [address] [place] [address], USABASIC METABOLIC PANELon 70-09-3267Jdkrlay [Mass/Vol]9.5 mg/dLNormal8.6-10.3The [facility] PrebleComment on above: Performed By: #### 36592, 08965 #### [facility] [address] [place] [address], USAChloride [Moles/Vol]101 mmol/KKofodp43-786Gts [facility] PrebleComment on above:Performed By: #### 04990, 55212 #### [facility] [address] [place] [address], USACO2 [Moles/Vol]29 mmol/NQtbutx49-02Hxb [facility] PrebleComment on above:Performed By: #### 82977, 51530 #### [facility] [address] [place] [address], USACreatinine [Mass/Vol]1.08 mg/dLNormal0.70-1.30The [facility] PrebleComment on above:Performed By: #### 86011, 40831 #### [facility] [address] [place] [address], USAGFR/1.73 sq M predicted among blacks MDRD (S/P/Bld) [Vol rate/Area]mL/min/{1.73_m2}Normal>60The [facility] Comment on above:Performed By: #### 19801, 63397 #### [facility] [address] [place] [address], USAGFR/1.73 sq M predicted among non-blacks MDRD (S/P/Bld) [Vol rate/Area]mL/min/{1.73_m2}Normal>60The [facility] Comment on above:Performed By: #### 41152, 59495 #### [facility] [address] [place] [address], USAGlucose [Mass/Vol]87 mg/zSLuqcrd15-972Mrg [facility] PrebleComment on above:Performed By: #### 21577, 08075 #### [facility] [address] [place] [address], USAPotassium [Moles/Vol]4.0 mmol/LNormal3.5-5.1The [facility] PrebleComment on above:Performed By: #### 18656, 51146 #### [facility] [address] [place] [address], USASodium [Moles/Vol]137 mmol/YWxkqfp824-667Cch [facility] PrebleComment on above:Performed By: #### 16898, 19965 #### [facility] [address] [place] [address], USAUrea nitrogen [Mass/Vol]12 mg/dLNormal7-25The [facility] PrebleComment on above:Performed By: #### 75101, 62199 #### [facility] [address] [place] [address], [facility] HOSPITALCBC W/DIFFon 57-41-2293ZGF BASOPHILS0.1 10*3/uLNormal 0.0-0.2The [facility] PrebleComment on above:Performed By: #### 67992, 40989 #### [facility] [address] [place] [address], USAABS IMM GRANS0.0 10*3/uLNormal0.0-0.2The [facility] PrebleComment on above:Performed By: #### 84190, 10149 #### [facility] [address] [place] [address], USAABS NEUTROPHILS5.3 10*3/uLNormal1.6-7.6The [facility] PrebleComment on above:Performed By: #### 94710, 47490 #### [facility] [address] [place] [address], USABasophils/100 WBC (Bld)0.9 %Normal0.0-1.0The [facility] PrebleComment on above:Performed By: #### 13021, 52583 #### [facility] [address] [place] [address], USAEosinophils (Bld) [#/Vol]0.2 10*3/uLNormal0.0-0.5The [facility] PrebleComment on above:Performed By: #### 47782, 73936 #### [facility] [address] [place] [address], USAEosinophils/100 WBC (Bld)2.3 %Normal0.0-6.0The [facility] PrebleComment on above:Performed By: #### 20414, 17145 #### [facility] [address] [place] [address], USAErythrocyte distribution width (RBC) [Ratio]13.8 %Normal 11.5-15.0The [facility] PrebleComment on above:Performed By: #### 03586, 53668 #### [facility] [address] [place] [address], USAHematocrit (Bld) [Volume fraction]49.6 %Atinbx36.0-50.0The [facility] PrebleComment on above:Performed By: #### 97304, 77661 #### [facility] [address] [place] [address], USAHemoglobin (Bld) [Mass/Vol]16.4 g/qWFzfqpx34.0-17.0The [facility] PrebleComment on above:Performed By: #### 07395, 45570 #### [facility] [address] [place] [address], USAIMMATURE GRANS0.5 %Normal0.0-1.0The [facility] PrebleComment on above:Performed By: #### 94594, 43483 #### [facility] [address] [place] [address], USALymphocytes (Bld) [#/Vol]1.2 10*3/uLNormal1.2-4.0The [facility] PrebleComment on above:Performed By: #### 53205, 98060 #### [facility] [address] [place] [address], USALymphocytes/100 WBC (Bld)16.6 %Low20.0-45.0The [facility] PrebleComment on above:Performed By: #### 99207, 45501 #### [facility] [address] [place] [address], [facility]ODWARDH (RBC) [Entitic mass]27.8 heZfydhv06.0-33.0The [facility] PrebleComment on above:Performed By: #### 20829, 81388 #### [facility] [address] [place] [address], [facility] HOSPITALMCHC (RBC) [Mass/Vol]33.1 g/vINyycmb29.0-35.0The [facility] PrebleComment on above:Performed By: #### 33589, 56914 #### [facility] [address] [place] [address], [facility] HOSPITALMCV (RBC) [Entitic vol]84.2 jUAplqgx93.0-98.0The [facility] PrebleComment on above:Performed By: #### 89739, 53111 #### [facility] [address] [place] [address], USAMonocytes (Bld) [#/Vol]0.7 10*3/uLNormal0.1-1.0The [facility] PrebleComment on above:Performed By: #### 93920, 02505 #### [facility] [address] [place] [address], USAMONOS9.4 %Normal5.0-12.0The [facility] PrebleComment on above:Performed By: #### 74875, 85223 #### [facility] [address] [place] [address], USANeutrophils/100 WBC (Bld)70.3 %Oezcrc27.0-72.0The [facility] PrebleComment on above:Performed By: #### 19250, 46101 #### [facility] [address] [place] [address], USANucleated RBC/100 WBC (Bld) [Ratio]0 %Normal0-0The [facility] PrebleComment on above:Performed By: #### 33314, 93854 #### [facility] [address] [place] [address], USAPLAT ZEQ162 10*3/nIYfbehv724-011Jfg [facility] PrebleComment on above:Performed By: #### 83658, 46691 #### [facility] [address] [place] [address], USARBC (Bld) [#/Vol]5.89 10*6/uLHigh4.20-5.70The [facility] PrebleComment on above:Performed By: #### 10435, 75739 #### [facility] [address] [place] [address], USAWBC (Bld) [#/Vol]7.48 10*3/uLNormal4.00-10.60The [facility] PrebleComment on above:Performed By: #### 05720, 49784 #### [facility] [address] [place] [address], USAPROTHROMBIN TIMEon 86-12-4245DUV Coag (PPP) [Relative time] 1.12 {INR}Normal0.91-1.16The [facility] PrebleComment on above:Result Comment: ACCCP RECOMMENDED [...] OPTIMAL THERAPEUTIC RANGE. CHEST 1995;108:231S-246S.Performed By: #### 93654, 74930 #### [facility] [address] [place] [address], USAPT Coag (PPP) [Time]14.4 sWzgffx64.3-14.8The [facility] PrebleComment on above:Result Comment: ALL RESULTS MUST BE INTERPRETED WITH RESPECT TO BLOOD DRAWING ARTIFACT OR DILUTION ERROR OF ANTICOAGULANT AT THE TIME OF SAMPLING.Performed By: #### 27858, 65047 #### [facility] [address] [place] [address], USATYPE AND SCREENon 08-92-3525UTE INTERPRETATIONANoTriHealth Bethesda Butler HospitalComment on above:Performed By: #### 78474, 41755 #### [facility] CENTER [address] [facility] [place] [address], USARH INTERPRETATIONPositiveNoTriHealth Bethesda Butler HospitalComment on above:Performed By: #### [id number], [id number] #### [facility] [address] [place] [place] [address], USACT 3D CERVICAL SPINE WO CONTRASTon 35-74-2465AB 3D CERVICAL SPINE WO CONTRASTUnFostoria City Hospital Department of Radiology [address] [place] [address] Patient Name: MATTY GARCES : 1970 Sex: M Age: Race: White Pt. Location: 85 Patient Status: D Ordered Date: 01/10/2019 2:15:00 PM Completed Date: 01/12/2019 10:32 AM Requesting Provider: LUCIANO DAVIS Attending Provider: LUCIANO DAVIS Report Copy To: VENUS JAEGER Signs & Symptoms: M48.02 Spinal stenosis, cervical region I10 History: [place] para auth # [id number] 01/10/19-02/09/19 [id number] *er Comments: Exam: CT 3D CERVICAL SPINE [...] incomplete Electronically signed by:Ten Uriarte. Transcribed by: [id number], User Resident: Electronically Signed by: TEN URIARTE @ 01/13/2019 09:18 [facility] [address] [facility] 01-05-2019 CERVICAL SPINE 2 OR 3 [facility]UniPro[facility] Department of Radiology [address] [place] [id number] Patient Name: MATTY GARCES : 1970 Sex: M Age: Race: White Pt. Location: Patient Status: O Ordered Date: 01/05/2019 9:00:00 AM Completed Date: 01/05/2019 09:06 AM Requesting Provider: LUCIANO DAVIS Attending Provider: LUCIANO DAVIS Report Copy To: Signs & Symptoms: M48.02 Spinal stenosis, cervical region I10 History: [place] Comments: , , , Ordering Provider - LUCIANO DAVIS MD , Exam: CERVICAL SPINE 2 OR 3 [facility] CERVICAL SPINE 2 OR 3 V[facility] 01/05/2019 [...] findings. Electronically signed by:Ten Uriarte. Transcribed by: [email or web address], User Resident: SHELLY DELA CRUZ Electronically Signed by: TEN URIARTE @ 01/05/2019 12:37 PM I personally read this/these film(s) with this residentAkron Children's HospitalComment on above:Order Comment: , , , Ordering Provider - LUCIANO DAVIS MD , CERVICAL SPINE [address] [facility] [id number] SPINE 2 OR 3 [facility]Un[facility]Pro[facility] Department of Radiology [address] [place] [id number] Patient Name: MATTY GARCES : 1970 Sex: M Age: Race: White Pt. Location: 85 Patient Status: O Ordered Date: 08/30/2018 9:35:00 AM Completed Date: 08/30/2018 09:43 AM Requesting Provider: LUCIANO DAVIS Attending Provider: LUCIANO DAVIS Report Copy To: VENUS JAEGER Signs & Symptoms: M50.90 Cervical disc disorder, unsp, unspecified cervical region I10 History: [place] Comments: , POST OP XRAY AP/LAT ONLY [...] findings. Electronically signed by:Bella King. Transcribed by: [id number], User Resident: RYAN ANDERSON Electronically Signed by: BELLA KING @ 08/30/2018 05:45 PM I personally read this/these film(s) with this residentAkron Children's HospitalComment on above:Order Comment: , POST OP XRAY AP/LAT ONLY , POST OP XRAY AP/LAT ONLY , , , Ordering Provider - LUCIANO DAVIS MD , Operative Reporton [id number] ReportMR#: [id number] I [facility] Pt. Name: Matty Garces Room #: [id number] Discharge Date: Birthdate: 1970 OPERATIVE REPORT DATE OF SURGERY: 08/17/2018 SURGEON: Luciano Davis M.D. PREOPERATIVE DIAGNOSIS: Herniated cervical disk at C6-7. POSTOPERATIVE DIAGNOSIS: Herniated cervical disk at C6-7. 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 ANESTHESIA: Endotracheal, Braida. [...] Davis M.D. Date Trans: 08/17/2018 11:25 P/sasha DN_JN:[id number] cc: Venus Jaeger M.D. [address] [place] [address]EtxzqpIejAkron Children's HospitalCERVICAL SPINE 2 OR 3 VWSon [id number] SPINE [address] [facility]ENTERniPro[facility] Department of Radiology [address] [place] [address] Patient Name: MATTY GARCES : [...] findings. Electronically signed by:Bernice Hoyt. Transcribed by: [email or web address], User Resident: KENNETH DUVAL Electronically Signed by: BERNICE HOYT @ 08/18/2018 01:06 PM I personally read this/these film(s) with this [facility] CompanyComment on above:Order Comment: C6-7 ACDF with POC GLUCOSE LABon 05-97-2786Fionwmv [Mass/Vol]113 mg/jKCjyy23-648OjnSelect Medical Specialty Hospital - CincinnatiComment on above:Performed By: #### [id number] #### [facility] [address] [place] [address], USARBC'S 2 UNITSon 91-22-6970BVTAMVZHRK INTERP 1CUniversity Hospitals Geneva Medical CenterComment on above:Performed By: #### 78352 #### [facility] [address] [place] [address], USACROSSMATCH INTERP 2CUniversity Hospitals Geneva Medical CenterComment on above:Performed By: #### 56657 #### [facility] [address] [place] [address], USAPRODUCT CODE [id number] Children's HospitalComment on above:Performed By: #### [id number] #### [facility] [address] [place] [address], USAPRODUCT CODE [id number] Children's HospitalComment on above:Performed By: #### 18577 #### [facility] [address] [place] [address], USAPRODUCT STATUS 1ROhioHealth Grant Medical CenterComment on above:Result Comment: Result changed by IF on 08/20/2018 07:48. The previous value was XM.Performed By: #### 77060 #### [facility] [address] [place] [address], USAPRODUCT STATUS 2ROhioHealth Grant Medical CenterComment on above:Result Comment: Result changed by IF on 08/20/2018 07:48. The previous value was XM.Performed By: #### 48259 #### [facility] [address] [place] [address], USAUNIT ABO 1AAkron Children's Hospital Comment on above:Performed By: #### 85532 #### [facility] [address] [place] [address], USAUNIT ABO 2AAkron Children's Hospital Comment on above:Performed By: #### 49127 #### [facility] [address] [place] [address], USAUNIT ID [id number] Medical Specialty Hospital - CincinnatiComment on above:Performed By: #### 56421 #### [facility] [address] [place] [address], USAUNIT ID [id number] Children's HospitalComment on above:Performed By: #### [id number] #### [facility] [address] [place] [address], USAUNIT RH 1PosiZanesville City HospitalComment on above:Performed By: #### 60791 #### [facility] [address] [place] [address], USAUNIT RH 2PositiveAkron Children's HospitalComment on above:Performed By: #### 38056 #### [facility] [address] [place] [address], [place]*MRSA/MSSA CULTUREon 08-02-2018*MRSA/MSSA CULTUREClinical Report: (D) Specimen: NASAL SWAB Collected: 08/02/2018 12:37 Status: Final Last Updated: 08/03/2018 14:26 ISO (Final) No Methicillin Resistant Staphylococcus aureus Isolated (MRSA) ISO (Final) Methicillin Sensitive Staphylococcus aureus (MSSA) IsolatedNoTriHealth Bethesda Butler HospitalComment on above:Performed By: #### 67037 #### [facility] [address] [place] [address], ROO[facility]ELT GENERAL HOSPITALAPTTon 93-82-7566zOXS Coag (Bld) [Time]31.2 sNormal 25.0-35.0The [facility] PrebleComment on above:Result Comment: ALL RESULTS MUST BE [...] BE USED FOR THIS PURPOSE.Performed By: #### 85998, 49655 #### [facility] [address] [place] [address], ROO[facility]VEL[facility] GENERAL HOSPITALBASIC METABOLIC PANELon 37-74-9750Myrsmqy [Mass/Vol]9.4 mg/dLNormal8.6-10.3The [facility] PrebleComment on above: Performed By: #### 78140 #### [facility] [address] [place] [address], USAChloride [Moles/Vol]103 mmol/GJptqhr66-619Esj [facility] PrebleComment on above:Performed By: #### 25090 #### [facility] [address] [place] [address], USACO2 [Moles/Vol]29 mmol/IBgaoxr14-61Pvo [facility] PrebleComment on above:Performed By: #### 99578 #### [facility] [address] [place] [address], USACreatinine [Mass/Vol]1.06 mg/dLNormal0.70-1.30The [facility] PrebleComment on above:Performed By: #### 98437 #### [facility] [address] [place] [address], USAGFR/1.73 sq M predicted among blacks MDRD (S/P/Bld) [Vol rate/Area]mL/min/{1.73_m2}Normal>60The [facility] Comment on above:Performed By: #### 21766 #### [facility] [address] [place] [address], USAGFR/1.73 sq M predicted among non-blacks MDRD (S/P/Bld) [Vol rate/Area]mL/min/{1.73_m2}Normal>60The [facility] Comment on above:Performed By: #### 20942 #### [facility] [address] [place] [address], USAGlucose [Mass/Vol]84 mg/nHHdzddg01-353Vpj [facility] PrebleComment on above:Performed By: #### 07428 #### [facility] [address] [place] [address], USAPotassium [Moles/Vol]4.0 mmol/LNormal3.5-5.1The [facility] PrebleComment on above:Performed By: #### 04904 #### [facility] [address] [facility] [place] [address], USASodium [Moles/Vol]140 mmol/ALcopti996-262Dwz [facility] PrebleComment on above:Performed By: #### 04244 #### [facility] [address] [place] [address], USAUrea nitrogen [Mass/Vol]20 mg/dLNormal7-25The [facility] PrebleComment on above:Performed By: #### 17091 #### [facility] [address] [place] [address], R[facility]AL HOSPITALCBC W/DIFFon 19-37-4091HGR BASOPHILS0.1 10*3/uLNormal 0.0-0.2The [facility] PrebleComment on above:Performed By: #### 90718 #### [facility] [address] [place] [address], USAABS IMM GRANS0.1 10*3/uLNormal0.0-0.2The [facility] PrebleComment on above:Performed By: #### 09938 #### [facility] [address] [place] [address], ROO[facility]ELT GENERAL HOSPITALABS NEUTROPHILS4.2 10*3/uLNormal1.6-7.6The [facility] PrebleComment on above:Performed By: #### 36852 #### [facility] [address] [place] [address], ROO[facility]EL[facility] GENERAL HOSPITALBasophils/100 WBC (Bld)1.3 %High0.0-1.0The [facility] PrebleComment on above:Performed By: #### 25126 #### [facility] [address] [place] [address], ROOSEVELT GENERAL HOSPITALEosinophils (Bld) [#/Vol]0.1 10*3/uLNormal0.0-0.5The [facility] PrebleComment on above:Performed By: #### 47739 #### [facility] [address] [place] [address], USAEosinophils/100 WBC (Bld)2.0 %Normal0.0-6.0The [facility] PrebleComment on above:Performed By: #### 45025 #### [facility] [address] [place] [address], USAErythrocyte distribution width (RBC) [Ratio]13.6 %Normal 11.5-15.0The [facility] PrebleComment on above:Performed By: #### 84906 #### [facility] [address] [place] [address], USAHematocrit (Bld) [Volume fraction]44.3 %Vjawdq08.0-50.0The [facility] PrebleComment on above:Performed By: #### 34476 #### [facility] [address] [facility] [place] [address], USAHemoglobin (Bld) [Mass/Vol]15.1 g/cIKxrkfw30.0-17.0The [facility] PrebleComment on above:Performed By: #### 06598 #### [facility] [address] [facility] [place] [address], USAIMMATURE GRANS1.1 %High0.0-1.0The [facility] PrebleComment on above:Performed By: #### 10691 #### [facility] [address] [facility] [place] [address], USALymphocytes (Bld) [#/Vol]1.2 10*3/uLNormal1.2-4.0The [facility] PrebleComment on above:Performed By: #### 38608 #### [facility] [address] [facility] [place] [address], USALymphocytes/100 WBC (Bld)18.3 %Low20.0-45.0The [facility] PrebleComment on above:Performed By: #### 22295 #### [facility] [address] [facility] [place] [address], USAMCH (RBC) [Entitic mass]29.0 gcDbjnoc72.0-33.0The [facility] PrebleComment on above:Performed By: #### 43840 #### [facility] [address] [place] [address], USAMCHC (RBC) [Mass/Vol]34.1 g/xSLzdrfu46.0-35.0The [facility] PrebleComment on above:Performed By: #### 05125 #### [facility] [address] [place] [address], USAMCV (RBC) [Entitic vol]85.0 aDOlrfkl00.0-98.0The [facility] PrebleComment on above:Performed By: #### 61143 #### [facility] [address] [facility] [place] [address], USAMonocytes (Bld) [#/Vol]0.7 10*3/uLNormal0.1-1.0The [facility] PrebleComment on above:Performed By: #### 83209 #### [facility] [address] [place] [address], MATRKVPA70.1 %Normal5.0-12.0The [facility] PrebleComment on above:Performed By: #### 78987 #### [facility] [address] [facility] [place] [address], USANeutrophils/100 WBC (Bld)66.2 %Eadcgr42.0-72.0The [facility] PrebleComment on above:Performed By: #### 62516 #### [facility] [address] [facility] [place] [address], USANucleated RBC/100 WBC (Bld) [Ratio]0 %Normal0-0The [facility] PrebleComment on above:Performed By: #### 06009 #### [facility] [address] [facility] [place] [address], USAPLAT CGJ190 10*3/aDNygkku633-753Upk [facility] PrebleComment on above:Performed By: #### 82568 #### [facility] [address] [place] [address], USARBC (Bld) [#/Vol]5.21 10*6/uLNormal4.20-5.70The [place] [facility] [place] Medical CenterComment on above:Performed By: #### 91140 #### [address] [address], ROO[facility]VELT GENERAL HOSPITALWBC (Bld) [#/Vol]6.39 10*3/uLNormal4.00-10.60The [facility] PrebleComment on above:Performed By: #### 50161 #### [facility] [address] [place] [address], USACERVICAL SPINE 4 OR 5 VIEWSon 65-48-9024OPJDLZCY SPINE 4 OR 5 VIEWSUnFostoria City Hospital Department of Radiology [address] [place] [id number] Patient Name: MATTY GARCES : 1970 Sex: M Age: Race: White Pt. Location: Patient Status: D Ordered Date: 08/02/2018 1:05:00 PM Completed Date: 08/02/2018 01:29 PM Requesting Provider: LUCIANO DAVIS Attending Provider: LUCIANO DAVIS Report Copy To: VENUS JAEGER Signs & Symptoms: Z01.89 Encounter for other specified special examinations I10 History: [place] Comments: , PREOP XRAY AP/LAT \EANDE\ FLEX/EX [...] findings. Electronically signed by:Bella King. Transcribed by: [email or web address], User Resident: KENNETH UDVAL Electronically Signed by: BELLA KING @ 08/03/2018 11:58 AM I personally read this/these film(s) with this residentNoTriHealth Bethesda Butler HospitalComment on above:Order Comment: , PREOP XRAY AP/LAT \EANDE\ FLEX/EX , PREOP XRAY AP/LAT \EANDE\ FLEX/EX , , , Ordering Provider - LUCIANO DAVIS MD , PROTHROMBIN TIMEon 32-65-5213IGM Coag (PPP) [Relative time]1.15 {INR}Normal0.91-1.16The [facility] Comment on above:Result Comment: ACCCP RECOMMENDED INR [...] OPTIMAL THERAPEUTIC RANGE. CHEST 1995;108:231S-246S.Performed By: #### 90083, 16157 #### [facility] [address] [place] [address], R[facility]T GENERAL HOSPITALPT Coag (PPP) [Time]14.7 pSraakp99.3-14.8The [facility] PrebleComment on above:Result Comment: ALL RESULTS MUST BE INTERPRETED WITH RESPECT TO BLOOD DRAWING ARTIFACT OR DILUTION ERROR OF ANTICOAGULANT AT THE TIME OF SAMPLING.Performed By: #### 09584, 07856 #### [facility] [address] [place] [address], R[facility]AL HOSPITALTYPE AND SCREENon 90-03-2655TSF INTERPRETATIONANoTriHealth Bethesda Butler HospitalComment on above:Order Comment: 2 units 2 units 2 units 2 units 2 unitsPerformed By: #### 91712 #### [facility] [address] [place] [address], USARH INTERPRETATIONPositiveNoTriHealth Bethesda Butler HospitalComment on above:Order Comment: 2 units 2 units 2 units 2 units 2 unitsPerformed By: #### 89925 #### [facility] [address] [place] [address], USAURINALYSIS REFLEXon 47-29-2235Kgxmbyaall (U)CLEARNormal CLEARThe [facility] PrebleComment on above:Performed By: #### 90525 #### [facility] [address] [place] [address], USABilirubin [Mass/Vol]NegativeNormalNEGATIVEThe [facility] PrebleComment on above:Performed By: #### 77974 #### [facility] [address] [place] [address], USABLOODNegativeNormalNEGATIVEThe [facility] PrebleComment on above:Performed By: #### 65736 #### [facility] [address] [place] [address], USAColor (U)YELLOWNormalYELLOWThe [facility] PrebleComment on above:Performed By: #### 76246 #### [facility] [address] [place] [address], USAGlucose [Mass/Vol]150 mg/dLAbnormalNEGATIVEThe [facility] PrebleComment on above:Performed By: #### 92833 #### [facility] [address] [place] [address], USAKETONENegativeNormalNEGATIVEThe [facility] PrebleComment on above:Performed By: #### 04300 #### [facility] [address] [place] [address], USALEUK ESTERNegativeNormalNEGATIVEThe [facility] PrebleComment on above:Performed By: #### 84355 #### [facility] [address] [place] [address], USAMICRO NOT DONEnegative chemical reactions unless requested in original orderNormalThe [facility] PrebleComment on above: Performed By: #### 11754 #### [facility] [address] [place] [address], USANitrite Ql (U)NegativeNormalNEGATIVEThe [facility] PrebleComment on above:Performed By: #### 45177 #### [facility] [address] [place] [address], R[facility]EL[facility] GENERAL HOSPITALpH (Bld)5.7Lehvuz1.0-8.0The [facility] PrebleComment on above:Performed By: #### 79097 #### [facility] [address] [place] [address], [facility] HOSPITALProtein (U) [Mass/Vol]NegativeNormalNEGATIVEThe [facility] PrebleComment on above:Performed By: #### 76596 #### [facility] [address] [place] [address], USASPEC GRAV1.032Kedh5.015-1.020The [facility] PrebleComment on above:Performed By: #### 53697 #### [facility] [address] [place] [address], [facility] Vital Signs Date TimeVital SignValuePerforming AvqquijphNqqaccxp47-17-9139 15:09-0400Body vygrim390 cmJafortino Rainey SOA ARCHITECT Work Phone: [facility] HospitalMnrtruoeug11-49-9966 15:09-0400Body mass index (BMI) [Ratio]34.92 kg/k3GoezjurmvkHeather Rainey SOA ARCHITECT Work Phone: [facility] HospitalUhmpzjklkz16-93-0611 15:09-0400Body uacwll799.38 kgJafortino Rainey SOA ARCHITECT Work Phone: [facility] HospitalSshzcukfpt13-69-4340 15:09-0400Diastolic blood nsjzvexb42 mm[Hg]Heather Rainey SOA ARCHITECT Work Phone: [facility] HospitalGxqlzjlqhg77-55-7309 15:09-0400Systolic blood wughqqxw215 mm[Hg]Heather Rainey SOA ARCHITECT Work Phone: [facility] HospitalQbioyfvjmi08-42-5135 11:03-0400Body knfohd966 cm Rubén Geiger MD Work Phone: [facility] HospitalDwuzwygibl37-80-1042 11:03-0400Body mass index (BMI) [Ratio]34.02 kg/k4OiihmzfRubén Geiger MD Work Phone: [phone] HospitalPcsglxhfrp05-84-0965 11:03-0400Body .2 kgRubén Geiger MD Work Phone: [phone] [place], [place] [address]Lxoufibjfr52-49-7540 11:03-0400Diastolic blood gifgjqob17 mm[Hg]Rubén Geiger MD Work Phone: 1([phone] [place], [place] [address]Vxybvxfpky76-90-1470 11:03-0400Heart dfhy654 /min Rubén Geiger MD Work Phone: 1(615)1-[address] [place], [place] [address]Gpzrnoxfsp67-99-3910 11:03-0400Systolic blood ifwoievh989 mm[Hg]Rubén Geiger MD Work Phone: 1([phone] [place], [place] [address]Wywkwgxwdy43-96-9425 14:44-0400Body gwhijd945 cm Rubén Geiger MD Work Phone: [phone] [place], [place] [address]Sqblchbznf90-50-9435 14:44-0400Body mass index (BMI) [Ratio]35.31 kg/g4FzxhrrqRubén Geiger MD Work Phone: [phone] HospitalYbccxbzylz34-75-6033 14:44-0400Body wttrej690.74 kgRubén Geiger MD Work Phone: [facility] HospitalWnqwbfnafd51-86-4354 14:45-0400Body cfjrak044 cm Rubén Geiger MD Work Phone: [facility] HospitalMjtgaulkmo66-75-7726 14:45-0400Body mass index (BMI) [Ratio]37.62 kg/f9ApnjojzRubén Geiger MD Work Phone: [facility] HospitalKfuancktxv33-03-6963 14:45-0400Body tpaudq826.9 kgRubén Geiger MD Work Phone: [facility] HospitalKkcmvxodco87-07-9292 10:30-0400Blood Pressure LocationKatMission Hospital [facility]ow[facility] 06-15-2022 10:30-0400Diastolic blood snlwgorr795 mm[Hg] Viola Lue [facility] 06-15-2022 10:30-0400Heart rate74 /minKathy Lue [facility] 06-15-2022 10:30-0400Respiratory rate16 /minKathy Lue [facility] 06-15-2022 10:30-0400Systolic blood tehubfsg422 mm[Hg] Viola Lue [facility] Encounters Encounter DateEncounter TypeCare ProviderFacilityStart: 07-13-2025 End: 46-79-0640Uujzly outpatient visit 25 minutesHeather Rainey SOA ARCHITECT Work Phone: [facility] NeurologyComment on above:Excessive daytime sleepiness; Obstructive sleep apneaStart: 07-13-2025 End: 88-12-2883fsejiqdhfyLWTBELQIRC M GRAZIANINot AvailableStart: 07-13-2025 End: 18-39-3126Gjjsfr flowsheetHeather Rainey SOA ARCHITECT Work Phone: [facility] NEUROLOGYStart: 07-13-2025 End: 84-61-4334Tdgqhm flowsheetHeather Rainey SOA ARCHITECT Work Phone: [facility] NEUROLOGYStart: 06-20-2025 End: 85-27-2076wzqqoguwfpOwuuhhg M Hoy MD Work Phone: [facility] Work Phone: Start: 06-20-2025 End: 64-53-8999Rouxdzqp ReferredRafik Massouh MD-LAB [facility] Start: 05-29-2025 End: 90-89-5403Oftlfsu encounter procedureJustnamita Eze Pauly DO-CT [facility] Work Phone: Start: 05-29-2025 End: 89-04-9910ocjcibnareXolkhpk M Hoy MD Work Phone: [facility] Work Phone: Start: 05-15-2025 End: 73-09-1918HiprrxCsvzpztmjc M Graziani NP Work Phone: [facility] [place] NeurologyComment on above:Excessive daytime sleepiness; Primary insomniaExcessive daytime sleepiness; Obstructive sleep apneaStart: 05-07-2025 End: 79-63-6075chopgtgrlkJvpjpyz M Hoy MD Work Phone: [facility] Work Phone: Start: 05-07-2025 End: 75-24-3752Cbqiowi encounter procedureJustnamita Eze Pauly DO-[facility] Work Phone: Start: 04-04-2025 End: 60-78-2323Sipvzssilviano Geiger MD Work Phone: [facility] NEUROLOGYStart: 04-04-2025 End: 63-83-2670Ndyawqsilviano Geiger MD Work Phone: noms BM NEUROLOGYStart: 04-04-2025 End: 46-44-5822Opejkb outpatient visit 25 minutesBremuriel Geiger MD Work Phone: noms SWS NEURComment on above:Narcolepsy cataplexy syndrome (HCC) (Primary Dx); Excessive daytime sleepiness; Cervical disc disorder; Intractable chronic migraine with aura with status migrainosusStart: 04-04-2025 End: 43-65-1312svrmkieyeaZSGXVEX W BAUERNot AvailableStart: 03-05-2025 End: 84-20-8128Qlyudvksq Result EncounterAmy [place] PA Work Phone: noms External Department UnsolicitedStart: 03-05-2025 End: 97-66-7503Xkfpeoaio Result EncounterJess HOYOS Work Phone: noms External Department UnsolicitedStart: 01-03-2025 End: 47-03-6681Frdwip outpatient visit 25 minutesRubén Geiger MD Work Phone: noms SWS NEURComment on above:Primary narcolepsy with cataplexy (CMS/HCC) (Primary Dx); Excessive daytime sleepiness; Obstructive sleep apneaStart: 01-03-2025 End: 91-98-4991hqalggximvJQQXOBA W BAUERNot AvailableStart: 01-03-2025 End: 58-41-1630Yijzskcaesar Geiger MD Work Phone: noms NEUROLOGYStart: 01-03-2025 End: 79-22-1641Wxakmzcaesar Geiger MD Work Phone: noms BM NEUROLOGYStart: 12-11-2024 End: 97-64-5025wfzdnnobyaIHUQGXP W BAUERNot AvailableStart: 12-11-2024 End: 03-71-9783Eoxaxx outpatient visit 25 minutesRubén Geiger MD Work Phone: noms SWS NEURComment on above:Cubital tunnel syndrome on right (Primary Dx); Cervical paraspinal muscle spasm; Degeneration of intervertebral disc of lumbosacral region with discogenic back pain and lower extremity pain; Narcolepsy cataplexy syndrome (CMS/HCC)Start: 11-14-2024 End: 41-78-6806Szieamrja Jeff Mason EEG. T. Other Phone: noms SWS NEURStart: 10-12-2024 End: 13-77-5958Nduqfngcr encounterHeather Rainey NP Work Phone: noms [facility] NEURO 210Start: 36-47-4533Oejdqoxknl and management of inpatientCHRISTOPHER [facility] Start: 10-08-2024 End: 22-24-3908Zpwbzzhyyq and management of inpatientJACK [facility]art: 10-02-2024 End: 50-64-1209TgplblBopossx Peterson LPNNOMS SV NEURO 210Comment on above: Excessive daytime sleepiness; Obstructive sleep apneaStart: 68-83-2543Ijkczhcqrj and management of inpatient MARIANNA ROBERTSFayette County Memorial Hospitaltart: 66-17-2028Hyaukvewyc and management of inpatientBRANTLEY HINDERSUniProMedica Bay Park Hospital Start: 97-16-8149Uskacjprdj and management of inpatientJAMIE [facility] Centertart: 79-13-3747Zqpfzchaqj and management of inpatient SHIN [facility] Centertart: 63-66-6445Ocfnivvwjl and management of inpatientABDUL MUSTAPHAUniMercy Memorial Hospitaltart: 37-47-4511Bcesqixhsy and management of inpatientRACHEL [facility] Hospitaltart: 05-49-1663Rciljywkt department patient visitJAMIE [facility] Centertart: 70-96-8283Mieobcxfp department patient visitJAMIE [facility]ertart: 09-23-2024 Emergency department patient visitRACHEL [facility]ome[facility] Hospitaltart: 09-23-2024 End: 43-81-5662Sirmwktrpz and management of inpatientJEFFERY KATKOFayette County Memorial Hospitaltart: 09-21-2024 End: 64-23-6927esmpxggmlnYyaeq D [facility] Work Phone: Start: 09-21-2024 End: 12-55-3044Lotdnqfk ReferredG[facility]rie [facility] DPM Work Phone: [facility] C[facility]-LAB Path Spec Toño HospStart: 07-04-2024 End: 54-12-9265Oobruzstm encounterRubén Geiger MD Work Phone: noms SVH NEURO 210Start: 07-03-2024 End: 44-26-4961Fqcbst outpatient visit 25 minutesRubén Geiger MD Work Phone: noms SWS NEURComment on above:Excessive daytime sleepiness (Primary Dx); Obstructive sleep apnea; Primary insomnia; Cubital tunnel syndrome on rightStart: 07-03-2024 End: 94-62-5976Eikjqm Anastasiya Geiger MD Work Phone: noms BM NEUROLOGYStart: 07-03-2024 End: 31-75-8037Aycjlt Anastasiya Geiger MD Work Phone: noms NEUROLOGYStart: 05-10-2024 End: 29-48-9955KxuiifKzmzfou W Bauer MD Work Phone: noms SWS NEURComment on above:Primary insomniaStart: 01-03-2024 End: 27-58-4959xcyjdeungmPKQ [facility] Work Phone: [facility] Work Phone: Start: 01-03-2024 End: 58-14-2194Vizplhwr ReferredDPM [facility] Work Phone: [facility]-LAB Path Spec [place] HospStart: 11-29-2023 End: 59-97-1183sxglpfqyxnDriamdc Vytautas Giedraitis MDFacility:PM Toño Start: 10-18-2023 End: 82-53-8337cnwhpfjfnoWoyanqt Vytautas Giedraitis MDFacility:PM [place] Start: 08-30-2023 End: 85-88-7558aqwutshukjRcrhopd Vytautas Giedraitis MDFacility:PM [place] Start: 07-12-2023 End: 77-76-4813vyohnagvftUtlqsez Vytautas Giedraitis MDFacility:PM [place] Start: 06-14-2023 End: 87-27-5242utsjhxqrtkNxdsssn Vytautas Giedraitis MDFacility:PM [place] Start: 12-06-2022 End: 40-94-7550oonxqhxahkQT VENUS HOY .Facility:W1Szmtl: 35-76-9433Rsdyarass for general adult medical examination without abnormal findingsDR VENUS HOY . [facility] [place] [facility]Start: 12-01-2022 End: 32-77-7234gxuhuiobfqKZ VENUS HOY .Facility:Y0Gqksk: 12-01-2022 End: 08-23-2677Rusnulbbt for general adult medical examination without abnormal findingsDR VENUS HOY .Facility:C8Fylue: 07-10-2022 End: 31-50-5936kvrfffcwhyAE VENUS HOY .Facility:J8Qegyz: 03-26-2022 End: 59-56-5067gzzaoshgfcAQ VENUS HOY .Facility:K3Losnx: 03-13-2022 End: 16-28-2349odgdxethmrRT VENUS HOY .Facility:E6Wpvrw: 02-25-2022 End: 08-90-0569Wjhxqoi encounter procedureViola Grullon [facility] start: 01-04-2022 End: 81-01-6645onqgnbfczqAY VENUS HOY .Facility:J7Rykwc: 01-30-2019 End: 07-59-0420Fdjbahkoee and management of inpatientPROVIDER UNKNOWN Facility:[facility]tart: 08-17-2018 End: 28-24-6183Zqaccki encounter procedurePROVIDER UNKNOWNFacility:[facility] Procedures DateProcedureProcedure DetailPerforming ClinicianStart: 53-39-9045WF of lower leg without contrastVenus Jaeger MD Work Phone: Start: 65-02-2251VIX 12-LEADAmy Garry HOYOS Work Phone: Start: 94-11-7547HCD screeningDR VENUS HOY .Comment on above:Performed By: #### PSASC #### [facility] [address] [address] [address] Shabnam RaeStart: 86-16-8810NVNNUV CERV JT W INTBD FUS DEV, ANT APPR A COL, OPENAZEDINE MEDHKOURStart: 05-44-0335YFGLAEW OF INT FIX FROM CERVCAL VERTEBRA, OPEN APPROACHAZEDINE MEDHKOURStart: 43-20-2978Jnowwdok screenPROVIDER UNKNOWN Comment on above:Performed By: #### [id number], [id number] #### [facility] [address] [place] [address], USAStart: 78-83-9046OISWBR SPINE CORD SURGERYANTHONY BRAIDA Start: 37-99-4660GNXJKZ SPINE FIXATION DEVICEAZEDINE MEDHKOURStart: 08-17-2018 NECK SPINE FUSE\T\REMOV BEL R6FMBRHYW MEDHKOURStart: 75-10-5189PK BONE ALGRFT STRUCT ADD-ONAZEDINE MEDHKOURStart: 64-19-3331Deqbuwoa screenPROVIDER UNKNOWN Comment on above:Order Comment: 2 units 2 units 2 units 2 units 2 unitsPerformed By: #### [id number] #### [facility] [address] [place] [address], USAStart: 02-08-1998H/O: vasectomyHistory of vasectomyRubén Geiger MD Work Phone: ColonoscopyKathy Lue Hemorrhoids (disorder)Viola Lue Hernia of abdominal cavity (disorder)Viola Lue TonsillectomyKathy Lue Plan of Treatment DateCare ActivityDetailAuthorStart: 11-05-2025 End: 77-85-2641Pgcwzfq encounter pjjobxqos96/23/2026 1:20 PM EST Office Visit [facility] [address] [place] [address] Rubén Geiger MD [address] [place] [address] NOMClotilde Wiley NeurologyStart: 07-13-2025 End: 66-43-4069Nvsvrzm encounter eghpousli31/31/2025 2:40 PM EDT Office Visit [facility] [address] [facility] [address] [place] [address] Heather Rainey, SOA ARCHITECT [address] [place] [address], [place] [id number] ArrivedNOMS [facility] Comment on above:ArrivedStart: 06-27-2025 End: 26-69-7856Tqzubxl encounter procedureNOMS [facility] NEURStart: 35-27-0214RYGGB-19 Vaccine ( season)COVID-19 Vaccine ( season)NOMS HealthcareStart: 45-86-5717Btonuijnv vaccinationInfluenza Vaccine (#1)NOMS HealthcareStart: 04-04-2025 End: 61-74-5221Ajfifha encounter procedureNOMS SWS NEURComment on above:Arrived Start: 01-03-2025 End: 59-68-0909Benramt encounter procedureNOMS SWS NEURComment on above:Arrived Start: 10-04-2024 End: 18-58-3549Yvqesoy encounter /22/2025 2:20 PM EST Office Visit [facility] [address] [facility] [address] [place] [address] Rubén Geiger MD [address], [place] [address] NOMS [facility] NEURStart: 00-60-3874Zlhjgwqrnxu Wound CultureSuperficial Wound CultureACMC Healthcare Systemtart: 07-03-2024 End: 80-02-5940Nablytd encounter procedureNOMS SWS NEURComment on above:Arrived Start: 78-39-2296Sakjrznim vaccinationInfluenza Vaccine (#1)[facility] Start: 67-24-2236Qkfvmxmwx B Vaccines (1 of 3 - 19+ 3-dose series)Hepatitis B Vaccines (1 of 3 - 19+ 3-dose series)[facility] HealthcareStart: 1976 DTaP/Tdap/Td Vaccines (1 - Tdap)DTaP/Tdap/Td Vaccines (1 - Tdap)[facility] Start: 13-80-3735MRC Vaccines (1 of 1 - Standard series)MMR Vaccines (1 of 1 - Standard series)NOM HealthcareStart: 72-07-3253Bcmkwcwia for malignant neoplasm of colonNOMS HealthcareBacteria identified in Unspecified specimen by Aerobe cultureSelect Medical Specialty Hospital - CincinnatiCT Lower leg - right W contrast IV [facility] CincinnatiXR Tibia and Fibula - right 2 ViewsAdventHealth Palm Coast Immunizations Immunization DateImmunizationNotesCare NdpqspuhDqdiuslc74-61-5703eqqtibgkq virus vaccine, unspecified formulationJacsaeid Rainey SOA ARCHITECT Work Phone: [facility] HospitalUkkhfffbff81-14-1012kbgljbxwk virus vaccine, unspecified formulationBremuriel Geiger MD Work Phone: noSamaritan HospitalFjbyhpdqwb39-72-5320majjrfpwh virus vaccine, unspecified formulationBremuriel Geiger MD Work Phone: [facility] Payers DatePayer CategoryPayerPolicy [id number]-ckj [id number] [id number] [id number] [id number] 2..840.1.644917.3.579.2.647 [id number] 2.16840.1.732692.3.57[id number] 2.16.840.1.345444.3.57[id number] 2..840.1.446003.3.57[id number] 2.16.840.1.218114.3.57[id number] 2.840.1.845157.3.57[id number] 2.840.1.282598.3.57[id number] 2.840.1.715801.3.57[id number] 2.840.1.831850.3.57[id number] 2.840.1.552541.3.57[id number] 2.840.1.819780.3.57[id number] 2.840.1.787136.3.579.[id number] 2.840.1.697783.3.57[id number] 2.840.1.202615.3.579.[id number] 2.840.1.619610.3.579.2.[id number] 2.840.1.264811.3.579.2.[id number] 2.840.1.215795.3.579.2.8402[id number] [id number] 2.16.840.1.1[id number] 2.16.840.1.8[id number] 2.16.840.1.868339.3.579.2.531 Social History DateTypeDetailFacilityTobacco smoking statusNo Smoking Status EnteredExecutive Urology [facility] start: 03-27-2024 End: 90-40-6341Utk Assigned At [facility] HospitaleExformerly [facility] start: 05-15-2018 End: 09-81-4858Zexlcux smoking status NHISEx-smoker (finding)[facility] Systemtart: 06-58-9903Ybl Assigned At [facility]tart: 59-89-9322Wuorubp smoking status NHISNever smoked tobacco NOMS HealthcareStart: 24-03-1272Zuaamky use and exposureSmokeless tobacco non-userNOMS HealthcareStart: 03-27-2024 End: 39-91-5200Zxuxccpfq beverage intakeEx-drinker (finding)[facility] Start: 03-27-2024 End: 37-33-6906Izxksiz of Social functionNOMS HealthcareStart: 30-17-2511Ijv assigned at birthNot on fileNOMS HealthcareStart: 28-60-3581PrrHcxa (finding) [facility] Systemtart: 69-90-6626CocWvojMHLI Healthcare Functional Status BxjyAdzkiguifrDkzwfaIsisldse60-12-3651Mfiiancopl StatusN/AExecutive Urology [facility] Clinical Notes 02-25-2022 to 07-13-2025 Note Date & GfyyGxayNmbcvdyc41-87-2375 History of Present illness Narrative* Heather Rainey, SOA ARCHITECT - 07/13/2025 2:40 PM EDT Images from [...] care. This clinical note was created utilizing Gemisimo documentation system. All information has beenthoroughly reviewed, corrected as necessary, and authenticated by the provider to ensure accuracy and completeness. On occasion, Gemisimo documentation system erroneously drops words or replaces aspoken word with a similar sounding word. Please notify with any questions or concerns regarding this clinical note. documented in this encounterCedar County Memorial HospitalAcqtgythmj23-37-1713 Radiology Diagnostic study [facility] [place] [address] [place] [address] CT Scan Report Signed Patient: Matty Garces MR#: [id number] : 1970 Acct:[id number] Age/Sex: 54 / M ADM Date: 5 Loc: CT Room: Type: [facility] CLI Attending Dr: Jameel Coats DO Copies [...] Dictation Location: [facility]--17 Transcribed By: [facility] 05/29/252339 Dictated By: Francis Irving II, MD 05/29/25 6248 Signed By: 05/29/252339 [facility] Work Phone: 1(735) 470-479909-03-2025 Telephone encounter Note* Telephone Encounter - Heather Rainey NP - 05/16/2025 8:45 AM EDT OARRS reviewed [facility] HospitalOqqyxzztoy25-87-4688 Miscellaneous Notes* Telephone Encounter - Heather Rainey NP - 05/16/2025 8:45 AM EDT OARRS reviewed documented in this encounterCedar County Memorial HospitalAunuferazt55-26-2374 Evaluation note* Diagnosis Onset Date Resolution Status Admit Date Hypertrophy of bone of lower leg noneactiveAugust 2024 11:21amFracture of right tibia and fibulanoneactive May 07, 2025 11:21amRight leg painnoneactiveAugust 2024 11:21am [facility] Work Phone: 1(533) 895-399107-23-2025 History of Present illness Narrative* Rubén Geiger [...] in all four extremities, including at least inspector subassembly, finger abductors, biceps, triceps, deltoid, toe flexors [...] refill for Xywav will be sent to [facility]. If symptomspersist or worsen, further [...] up in 3 months. documented in this encounterCedar County Memorial HospitalSazdruimkx46-08-8914 History of Present illness Narrative* Rubén Geiger [...] 1 mg, Oral, 2 times daily HYDROcodone-acetaminophen ([place]) 5-325 MG tablet hydrOXYzine pamoate (Vistaril) 25 [...] in all four extremities, including at least inspector subassembly, finger abductors, biceps, triceps, deltoid, toe flexors [...] Increase Xywav to 6mg documented in this encounterCedar County Memorial HospitalXhngdhkncw81-83-6868 History of Present illness Narrative* Rubén Geiger [...] 1 mg, Oral, 2 times daily HYDROcodone-acetaminophen ([place]) 5-325 MG tablet hydrOXYzine pamoate (Vistaril) 25 [...] in all four extremities, including at least inspector subassembly, finger abductors, biceps, triceps, deltoid, toe flexors [...] intracranial or extracranial stenosis. documented in this encounterCedar County Memorial HospitalKpccvqhkgp56-63-1097 Telephone encounter Note* Telephone Encounter - Isabella Manzano - 11/14/2024 9:49 AM EST Pt called for refill on Zofran. [facility] Work Phone: 1(771) 573-114003-04-2025 Miscellaneous Notes* Telephone Encounter - Isabella Manzano - 11/14/2024 9:49 AM EST Pt called for refill on Zofran. documented in this encounterCedar County Memorial HospitalXvnckoemhl70-11-0870 Telephone encounter Note* Telephone Encounter - Heather [...] sent and if I search patient chat. [facility] HospitalXahiocyyhk72-53-7822 Miscellaneous Notes* Telephone Encounter - Heather Rainey [...] I search patient chat. documented in this encounterCedar County Memorial HospitalPrppgeuuye30-96-5395 NoteOccupational Therapy Occupational Therapy Treatment Note Patient [...] going to put in a elba toilet. (Soil Scientist suggesting a RTS or to have son put in toilet however, pt stated that he will replace the toilet himself) Objective 1 Pt was up in chair at EOS with on her way. Objective 2 Soil Scientist provided education on home and bathroom safety. [...] A Little (Min Henrietta (more content not included)...[facility] 10-11-2024 NoteHospital Medicine Discharge Summary Final Discharge Diagnosis: Left leg cellulitis Open wound of left great toe HTN Anxiety disorder Chronic combined systolic and diastolic Congestive heart failure, NYHA II Closed fracture of right fibula and tibia Admission Diagnosis: Left leg cellulitis [L03.116] Cellulitis of right lower extremity [L03.115] Cellulitis of left leg [L03.116] Hospital course: 54-year-old male who came from [facility] due to left lower extremity cellulitis. The [...] 10/26/2024 2:50 PM Sandrine Field MD [facility] Your medication list START taking these medications [...] Medications These medications were sent to [facility] - [place], [place] - [address] [place] [address] [place] [address], [facility] [address] Phone (more content not included)...[facility] 10-11-2024 NotePharmacy Dosing Service - Vancomycin Follow [...] or questions Thank you, Sudha Camacho, PharmD, 10/11/24[facility]01-29-2025 Note Attestation signed by Sandrine Field MD [...] with any concerns via the Orthopaedic pager ([phone]) at any time. Jazzmine Casanova MD Orthopedic Surgery Resident, PGY 1UnFostoria City Hospital01-28-2025 [facility] Medicine Daily Progress Note - 10/10/2024 6:40 PM; Room: [address] [place] [address] Admission: 10/08/2024 5:47 AM; Length of stay: 2 days THE HOSPITALIST TEAM PREFERS TO USE GuestShots CHAT FOR NON-URGENT COMMUNICATION 7AM-7PM. IF I DO NOT RESPOND WITHIN 20 MINUTES OR URGENT MATTERS, PLEASE CALL THROUGH THE FOREST SCIENCE PROFESSOR. FROM 7PM-7AM, PLEASE PAGE [phone](COVR). Code Status: Full Code Barriers to Discharge: [...] , FREET4 , CORTISOL , FEV1 , HFV1OWP , DLCO , RVSP , HDL , LDL No results found for: KZLIINFP74 , IRON , TIBC , C3 , [...] Discharge Planning Expected Discharge Disposition: Home-Health Care [facility] (06) PT (more content not included)...[facility]01-28-2025 NoteUnKettering Memorial Hospital Vascular Surgery/Wound Care CONSULTATION Reason [...] Patient reports that he has followed with [facility] in [place] for many years for treatment of his left great toe DFU. States that is chronic and has been minimal healing progress until recently. Patient states he would like to resume care with this [facility] at discharge. He has not been able to see [facility] since previous discharge due to scheduling issues. [...] tablet 5 mg, 5 mg, oral, Daily, eZ Echevarria MD, 5 mg at 10/10/24 0820 [...] on file Occupational Histor (more content not included)...[facility]01-28-2025 NotePhysical Therapy Physical Therapy Treatment Patient Name: [...] Stand Technique 1 S (more content not included)...[facility] 10-10-2024 Note. Pharmacy Dosing Service - Vancomycin [...] 5 days. -Check BUN/SCr daily Erin RangelD, 10/09/24[facility]01-27-2025 Note Occupational Therapy Occupational Therapy Evaluation Patient Name: Matty Garces : 1970 Today's Date: 10/09/2024 Time in:1504 Time out: 1526 Present Illness History: 54 y/o M presented from [facility] with R LE cellulitis. Patient was [...] Level of Function Prior Function Level of [place]: Independent with ADLs and functional transfers, Independent [...] mobility, transfers and fu (more content not included)...[facility]01-27-2025 Note10/09/24 0909 Admission Assessment Questions Verify insurance [...] Status Interested Does the patient have a family caseworker assigned to them through their insurance? No Living Arrangement (Current/Prior to Hospitalization) Private residence (lives with ) Does the patient have history of C or SNF? Yes (Active with Radha/Abdirashid [facility]) Assistive Device Wheelchair;Bedside Commode;Walker Patient's goal for discharge Home with [facility] Was patient reminded that goal for discharge is 11am? No Does the patient have transportation at discharge? Yes Type of Residence Private residence;Home care staff Is PT/OT appropriate? Yes Is PT/OT ordered? Yes Is SW consult appropriate? Yes Is SW consult ordered? Yes Do you understand the benefits of MyChart? Yes Were you able to send link and activate MyChart? [facility]01-27-2025 NoteHospital Medicine Daily Progress Note - 10/09/2024 12:13 PM; Room: [address] [place] [address] Admission: 10/08/2024 5:47 AM; Length of stay: 1 days THE HOSPITALIST TEAM PREFERS TO USE GuestShots CHAT FOR NON-URGENT COMMUNICATION 7AM-7PM. IF I DO NOT RESPOND WITHIN 20 MINUTES OR URGENT MATTERS, PLEASE CALL THROUGH THE FOREST SCIENCE PROFESSOR. FROM 7PM-7AM, PLEASE PAGE [phone](COVR). Code Status: Full Code Barriers to Discharge: [...] , FREET4 , CORTISOL , FEV1 , LDS1QNR , DLCO , RVSP , HDL , LDL No results found for: [id number] , IRON , TIBC , C3 , [...] Discharge Planning Expected Discharge Disposition: Home-Health Care [facility] (06) PT Discharge Recommendations: Home PT Signed C (more content not included)...[facility]01-27-2025 NotePhysical Therapy Physical Therapy Re-Evaluation Patient Name: Matty Garces : 1970 Today's Date: 10/09/2024 General Subjective: Attempted to see pt earlier today ([phone]) for mobility assessment. Pt deferred d/t pain [...] Exercise Therapeutic Exercise Therape (more content not included)...[facility] 10-09-2024 Note. Pharmacy Dosing Service - Vancomycin [...] steady state -Check BUN/SCr daily Erin RangelD, 10/09/24UnFostoria City Hospital01-27-2025 Note Orthopaedic Surgery Orthopaedic Surgery Progress [...] Rivas MD Orthopaedic Surgery, PGY-2 Ortho Pager [phone] 10/09/24 6:38 AM I am available via Tile 6a-6p. May contact the on-call resident with any concerns via the Orthopaedic pager at any time.[facility]01-26-2025 NoteCase was discussed with the AYAKA on 10/08/2024. I agree with the history, physical, assessment, and plan of care. I discussed the findings and therapeutic plan. I agree with the documentation, except for any updates below. Fabiola Wade, [facility]01-26-2025 NotePhysical Therapy Evaluation Patient Name: Matty Garces Today's Date: 10/08/2024 Admit Date: 10/08/2024 Time In: 1:20pm Time Out: 1:45pm Cumulative minutes: 25 minutes Billed minutes: 25 minutes; 15 min eval; 10 min therapeutic exercise to review HEP x10 reps. History of present illness Per H&P: Matty Garces is an 54 y.o. male who came from [facility] with LLE cellulitis. Patient has PMH of hypertension, diastolic heart failure, GERD, anxiety. He recently was admitted here and had right leg tib/fib fracture and seen by our ortho team and had closed insertion with intramedullary wendy on 09/24/24 and was discharged home. He reports he went to [place] ER due to increased pain, swelling and [...] patient refused this stating he already has [facility] set up and wants to go home. Vascular surgery was consulted for a chronic left foot ulcer. Pulmonary navigator was consulted for PATEL and recommended OP sleep study. On day of discharge, Trauma team was informed at approximately 1730 per [facility] that patient went into a-flutter and sustained for approximately 2 hours from approximately 1247-3920. Trauma team ordered a STAT ECG and [...] WB status. Objective assessment (more content not included)...[facility]01-26-2025 NotePharmacy Dosing Service - Vancomycin Initial Consult Note Pharmacy has been consulted for the dosing and evaluation of Drug: Vancomycin Indication: complicated skin and soft tissue infection AUC 400-600 mg*hr/L and trough 10-20 mcg/mL Other Antimicrobial Regimens: cefepime Labs and Renal Function Total body weight: 134 kg (295 lb) [place] body weight: 82.2 kg (181 lb 3.5 [...] Comments: - 54 year old male from [place] with LLE cellulitis -Had intramedullary wendy placed [...] or questions Thank you, Altaf Martin, PharmD, 10/08/24UnFostoria [facility]01-26-2025 Note Will consult wound careUnFostoria City Hospital01-26-2025 Note Continue vanco and zosyn Ortho following Will get blood culturesUnFostoria City Hospital01-26-2025 Note Continue citalopram, clonazepamUnFostoria City Hospital01-26-2025 NoteContinue modafinil, coregUnFostoria City Hospital01-26-2025 Note Not in exacerbation Continue furosemide, coreg, asaUnFostoria City Hospital01-26-2025 NoteOrtho following, concern for possible infection Admit to med surg Activity orders per ortho with LLE Cardiac diet Will get labs this morning and follow up on results Daily bmp and cbc to monitor kidney function, electrolytes, hgb and wbc Case will be discussed with attending physicianK[facility]tering Health [facility]01-26-2025 NoteHospital Medicine History and Physical 10/08/2024 7:26 AM THE HOSPITALIST TEAM PREFERS TO USE [employer] FOR NON-URGENT COMMUNICATION 7AM-7PM. IF I DO NOT RESPOND WITHIN 20 MINUTES OR URGENT MATTERS, PLEASE CALL THROUGH THE FOREST SCIENCE PROFESSOR. FROM 7PM-7AM, PLEASE PAGE [phone](COVR). Chief Complaint Chief Complaint Patient presents with Cellulitis History of Present Illness Matty Garces is an 54 y.o. male who came from [facility] with LLE cellulitis. Patient has PMH of hypertension, diastolic heart failure, GERD, anxiety. He recently was admitted here and had right leg tib/fib fracture and seen by our ortho team and had closed insertion with intramedullary wendy on 09/24/24 and was discharged home. He reports he went to [place] ER due to increased pain, swelling and [...] this hospital stay by a member of [facility]. Past Medical History Past [...] Insecurity: No Food Insecurity (more content not included)...[facility]01-20-2025 Telephone encounter Note* Telephone Encounter - Marianna Sheehan LPN - 10/02/2024 2:19 PM EST Provigil refill request to [facility] sent to provider. Last appt. 07/03/24 [facility] [id number] Miscellaneous Notes* Telephone Encounter - Marianna Sheehan LPN - 10/02/2024 2:19 PM EST Provigil refill request to [facility] sent to provider. Last appt. 07/03/24 documented in this encounterCedar County Memorial [id number] NoteTrauma team informed at approximately 1730 per [facility] that patient went into a-flutter and sustained for approximately 2 hours from approximately 9963-8113. Trauma team ordered a STAT ECG and [...] tonight, AMA AMA paperwork reviewed and signed [facility]01-16-2025 Note09/28/24 1537 Home Oxygen Therapy Evaluation Pulse Oximetry on room air at Rest 94 Pulse Ox on room air while walking 96 Patient Qualification for home oxygen Does not qualify for home oxygen this visit (When pt is sleeping, apnea is noted and at times saturation drops but when pt is awake and moving his oxygenation is stable)[facility]01-16-2025 NoteUnKettering Memorial Hospital Trauma Surgery Progress Note Subjective [...] Value Ventricular Rate [address] Interval 164 QRS DURATION 92 QT Interval 386 QTC CALCULATION(BAZETT) 450 P [place] 61 R-[place]end[place] 18 T Wave [place] 69 Impression Normal sinus rhythm Normal ECG [...] C, PT/OT recommending walker, commode, and rolling wheelchair.[facility]01-16-2025 Note Physical Therapy Physical Therapy Treatment Patient [...] EOB, commode, and recliner (more content not included)...[facility]01-16-2025 NoteOccupational Therapy Occupational Therapy Treatment Patient Name: [...] apnea) Gastroesophageal reflux disease Obese Co-tx with INTERMEDIATE DESIGNER to facilitate purposeful activity, 2/2 high fall risk, impaired dyn standing balance & act tolerance, poor safety awareness, & poor safety awareness with STS, transfers, & functional ambulation; To maintain safety of patient & staff. 09/28/24 1358 OT Last Visit OT Received On 09/28/24 General Subjective I got my w/c 3rd hand...from my kpjhon-aa-bbk. Treatment Duration (min) 55 Minutes Response to [...] not maintain precs. General Assessment Hearing mild [place] Skin Integrity ALVARO wrap to RLE, DFU [...] during mary lou-care post BM, standing at [facility]. Unsteadiness present. Static Sitting Balance Static Sitting-Balance Support Feet supported Static Sitting-Level of Assistance Distant supervision Static Sitting-Comment/Number of Minutes Supervision for safety Dynamic Sitting Balance Dynamic Sitting-Balance Support Feet supported;Unilateral upper extremity supported Dynamic Sitting Balance-Level of Assistance Close supervision Dynamic Sitting-Comments SBA for safety scooting EOB, positioning on [facility] Static Standing Balance Static Standing-Balance Support With [...] mary lou-care & hygiene in stance at [facility] with RW. Add'l SBA for safety. Pt very unsteady with poor awareness. CGA during functional ambulation with device. Cues for safety awareness, & maintaining WB precs. Bed Mobility 1 Bed Mobility From 1 Supine Bed Mobility Type 1 To Bed Mobility to 1 Short sit Level of Assistance 1 Close superv (more content not included)...[facility]01-16-2025 NoteCalled [employer] by phone to check on status of pt's DME (wheelchair, walker, bedside commode). Was advised they did not receive it via [employer] and would need it direct faxed to [phone]. Faxed referral and was advised they will [...] to call . UPDATE 3:05PM- Spoke with [employer] again and was advised the wheelchair [...] discharge around 6pm tonight. Also spoke with [facility] and was provided w/ fax [phone] to send AVS once ready. UPDATE 4:05PM- Direct faxed final AVS to [facility]01-16-2025 NoteUnKettering Memorial Hospital Vascular and Wound Surgery DAILY [...] 2. Unchanged cardiomediastinal silho (more content not included)...[facility]01-15-2025 NoteDischarge Planning: Home with [facility] The patient was accepted by [facility]. DME referral sent to [employer]. The patient would like the DME either delivered to the hospital or his home prior to discharge.[facility]01-15-2025 Note Occupational Therapy Occupational Therapy Treatment Patient Name: Matty Garces : 1970 Today's Date: 09/27/2024 Time in:1357 Time out:1450 Total time:53 minutes,23 min OT, additional for INTERMEDIATE DESIGNER [place] provided to maximize safety as progressed [...] precautions etc Transfers 2 (more content not included)...[facility]01-15-2025 Note Physical Therapy Physical Therapy Treatment Patient [...] 1 for lift, balance, (more content not included)...[facility]01-15-2025 Note Attestation signed by Fahad Rizzo MD at 09/28/2024 7:41 AM Patient seen and examined with trauma team [facility] Trauma Surgery Progress Note Subjective Patient [...] kg (299 lb 2.6 oz) (09/27 338) [place] Coma Scale Score: 15 Intake/Output Summary (Last [...] Value Ventricular Rate [address] Interval 164 QRS DURATION 92 QT Interval 386 QTC CALCULATION(BAZETT) 450 P [place] 61 R-[place]end[place] 18 T Wave [place] 69 Impression Normal sinus rhythm Normal ECG [...] for acute findings. Respiratory: (more content not included)...[facility] 09-26-2024 NotePer patients patient was to start with Radha Mendenhall [facility] on the day of admit. Referral made as requested. SW following.[facility]01-14-2025 NoteUnKettering Memorial Hospital Vascular and Wound Surgery DAILY PROGRESS NOTE Subjective Patient seen and examined at bedside. No acute events overnight. Vital signs stable. Denies pain to the left ulcer. Patient states he follows regularly with salvage inspector wood parts at [facility] and plans to follow-up with [...] Increased oxygen requirements. COMPARISON: (more content not included)...[facility] 09-26-2024 NoteOccupational Therapy Occupational Therapy Treatment Note [...] on with B LE's elevated Objective 2 Soil Scientist discussed importance of discharging to facility for continued therapy prior to going home however, pt declines. Pt transfers are currently unsafe with instructional writer questioning ability to maintain WB status. [...] Other Pt is impulsive during standing/transfer activities. Soil Scientist questions pts safety while at home. General [...] endurance, Decreased functional mobility, Decreased IADLs OT Assessment/CHIEF ENGINEERING DIVISION Summary: Pt would benefit from continued therapy [...] training, Endurance training, Patient/f (more content not included)...[facility]01-14-2025 NoteOrthopaedic Surgery Orthopaedic Surgery Progress Note Date: [...] Can be reached at the orthopedic pager: [phone] Luis Felipe Rivas MD 09/26/24 7:24 AM Ortho Pager: [phone] City Hospital01-14-2025 Note [facility] Trauma Surgery Progress Note Subjective Subjective: [...] kg (303 lb 9.2 oz) (09/26 043) [place] Coma Scale Score: 15 Intake/Output Summary (Last [...] Value Ventricular Rate [address] Interval 164 QRS DURATION 92 QT Interval 386 QTC CALCULATION(BAZETT) 450 [address] [place] 61 R-[place]end[place] 18 T Wave [place] 69 Impression Normal sinus rhythm Normal ECG [...] Syncopal workup -Telemetry monitori (more content not included)...[facility]01-13-2025 NotePt was seen early this morning about wearing BiPap for possible sleep apnea due to periods of apnea and decreased oxygen saturation overnight. Pt refused BiPap, stating he has tried it before and it gives him migraines. Pt was agreeable to wearing a salter at night to help with oxygenation.[facility]01-13-2025 Note09/25/24 1528 Referral Data Referral Source quarry worker Referral Reason Follow up;Information Patient Information Primary Caregiver Spouse Activities of Daily Living Assistive Device Walker;Wheelchair Behavior Oriented Communication Talks;Understands speaking Discharge Planning Living Arrangements Spouse/significant other Support Systems Spouse/significant other Type of Residence Private residence;[facility] (await name of agency from ) Post Acute Services In home services (agreeable to [facility]) Type of Home Care Services (Current) Skilled Home Servicies;Home OT;Home PT ([facility] was just going to start services before admit) Patient's goal for discharge home with [facility] Does the patient need discharge transport arranged? No () Screened by [facility]. Pt declines SNF placement and is agreeable to take pt home with [facility]. Await name of [facility] agency that was approved to start services. Pt will likely need RT for home O2. Will follow up with pt's for [facility] agency. thinks [facility] agency is [employer] [facility] or [employer] [facility]. SW will follow with referrals.[facility]01-13-2025 Note09/25/24 1332 Admission Assessment Questions Verify insurance [...] Status Interested Does the patient have a family caseworker assigned to them through their insurance? No Living Arrangement (Current/Prior to Hospitalization) Private residence;Home self care Does the patient have history of HHC or SNF? Yes (pt could not remember the [facility] agency name, neither could ) Assistive [...] Assessment completed with , patient deferred to .[facility]01-13-2025 NoteThe findings from this face to face encounter indicate the reason this patient requires a bedside commode. Patient is physically incapable of using regular toilet facilities. Patient is confined to 1 level of the home with no toilet on that level Marilou Tomlin [facility] Department of Surgery - Trauma [phone]01-13-2025 NoteThe findings from this face to face [...] is provided in the home Marilou Tomlin [facility] Department of Surgery - Trauma [facility] [place], [place] [address]01-13-2025 NoteThe findings from this face to face [...] been discussed with the patient Marilou Tomlin [facility] Department of Surgery - Trauma [phone] [place], [place] [address]01-13-2025 NotePhysical Therapy Physical Therapy Evaluation Patient Name: [...] demo General Assessment General Assessment Hearing: mild [place] Skin Integrity: alvaro wrap to RLE, wound [...] Level of Function Prior Function Level of [place]: Independent with ADLs and functional transfers, Independent [...] deficits Perception Inattention/Neglect: A (more content not included)...[facility]01-13-2025 Note Attestation signed by Gabriel Seay MD [...] meet criteria for admission to IPR: Assessment: [place]in fracture of the right tibial shaft and [...] Plan of Care: Patient with diagnosis of [place] fracture of the right tibial shaft and [...] oral, TID wit (more content not included)... [facility]01-13-2025 NoteOccupational Therapy Occupational Therapy Evaluation Patient Name: [...] carryover General Assessment General Assessment Hearing: Mild [place] Skin Integrity: ALVARO wrap to RLE, DFU [...] LLE heel WB de (more content not included)...[facility]01-13-2025 NoteOrthopaedic Surgery Orthopaedic Surgery Progress Note Date: [...] Rivas MD 09/25/24 7:02 AM Ortho Pager: [phone] City Hospital01-13-2025 Note [facility] Trauma Surgery Progress Note Subjective Subjective: [...] Value Ventricular Rate [address] Interval 164 QRS DURATION 92 QT Interval 386 QTC CALCULATION(BAZETT) 450 [address] [place] 61 R-[place]endale 18 T Wave [place] 69 Impression Normal sinus rhythm Normal ECG [...] mary lou-colace an (more content not included)... [facility]01-12-2025 NoteUnKettering [facility] Hospital Vascular Surgery/Wound Care CONSULTATION Reason for Consult: Left foot ulcer Subjective History of Present Illness: Matty Garces is a 53 y.o. male with a PMH of DM, HTN, HF and recent cellulitis to [facility] . He is admitted for transverse fracture [...] BID, ROMAIN Acevedo, 1 tablet at 09/24/24 1584 Social History Socioeconomic History Marital status: Spouse [...] rhythm. Pulmonary: Effort: Pulmonar (more content not included)...[facility]01-12-2025 NoteOrthopaedic Surgery Orthopaedic Surgery Progress Note Date: [...] BRO MD 09/24/24 10:29 PM Ortho Pager: [phone] City Hospital01-12-2025 Note Patient: Matty Garces Procedure Summary Date: 09/24/24 Room / Location: [facility] OPERATING ROOM 05 / [facility] Operating Room Anesthesia Start: 1020 Anesthesia Stop: [...] preop) Hydration status: acceptable No notable events documented.[facility]01-12-2025 Note Airway Date/Time: 09/24/2024 10:35 AM Urgency: elective General Information and Staff Patient location during procedure: OR Anesthesiologist: Jeffery Casey MD Resident/OUTER DIAMETER TECHNICIAN/CAA: Kenneth Marina MD Performed: resident/OUTER DIAMETER TECHNICIAN/CAA Indications and Patient Condition Indications for airway [...] approach: 1 Number of other approaches attempted: 0UnFostoria City Hospital 09-24-2024 NotePatient: Matty Garces Procedure Information Date/Time: 09/24/24 1000 Procedure: CLOSED INSERTION, INTRAMEDULLARY WENDY, TIBIA (Right: Leg Lower) Location: [facility] OPERATING ROOM 05 / [facility] Operating Room Surgeons: Sandrine Field MD Relevant [...] Value Ventricular Rate [address] Interval 156 QRS DURATION 84 QT Interval 368 QTC CALCULATION(BAZETT) 467 P [place] 54 R-[place]end[place] 60 T Wave [place] 12 Impression Normal sinus rhythm Normal ECG [...] discussed with attending and resident. Additional Equipment RequestsKettering Health Preble01-12-2025 Note Subjective Patient resting comfortably in bed. [...] wounds to LLE, wounds (more content not included)...[facility]01-12-2025 NotePhysical Therapy Name: Matty Garces Date of : 1970 Today's Date: 09/24/24 Pt is unable to be seen for therapy at this time secondary to Surgery today for fixation of frature. Will check back and complete therapy session as appropriate. Check No Charge Time attempted: 0759 Janet Lovelace PT, [facility] CENTERUnFostoria City Hospital01-12-2025 Note Orthopaedic Surgery Orthopaedic Surgery Progress [...] Rivas MD Orthopaedic Surgery, PGY-2 Ortho Pager [phone] 09/24/24 7:29 AM I am available via [employer] chat 6a-6p. May contact the on-call resident with any concerns via the Orthopaedic pager at any time.[facility]10-22-2024 Telephone encounter Note* Telephone Encounter - Nita Anthony - 07/04/2024 4:10 PM EDT left message regarding prescriptions earlier today and not being at pharmacy. I did call back and spoke to advising they were sent this afternoon. had mentioned Dr. Geiger was also going to start a Vitamin B to help boost energy in the morning. [facility] [place]. [facility] [id number] Miscellaneous Notes* Telephone Encounter - Nita Anthony - 07/04/2024 4:10 PM EDT left message regarding prescriptions earlier today and not being at pharmacy. I did call back and spoke to advising they were sent this afternoon. had mentioned Dr. Geiger was also going to start a Vitamin B to help boost energy in the morning. [facility] in [place]. documented in this encounterCedar County Memorial [id number] History of Present illness Narrative* Rubén Geiger [...] 1 mg, Oral, 2 times daily HYDROcodone-acetaminophen ([place]) 5-325 MG tablet hydrOXYzine pamoate (Vistaril) 25 [...] reflexes: Alycia's absent. Ankle clonus absent. Coordination Xflfvu-jh-zcbo, rapid alternating movements and smxt-bd-pgll normal bilaterally without dysmetria. Gait Normal casual, [...] Follow up 3 months. documented in this encounterCedar County Memorial HospitalZytzirhbmk17-23-2084 NotePROCEDURE: XR FOOT LT MIN 3 VIEWS [...] Electronically authenticated by: ALVINA CAICEDO Date: 2022-03-26 10:47[facility]06-15-2022 Hospital Discharge instructions Patient Education 02/25/2022 11:09:43 [...] Watch the hydrocele for any changes. Take tmrx-zbu-okwbmmu and prescription medicines only as told by [...] 02/17/2011 Document Revised: 09/10/2018 Document Reviewed: 09/10/2018 [employer] Patient Education 2020 [employer]. Follow Up Care 01/28/2022 10:36:35 With:Mitchel DELGADO, CHINA Gregorio, URO Address: When: Unknown [facility] evaluation + Plan note No data available for this section [facility] evaluation noteNo assessment information available [facility] Work Phone: Evaluation note* Diagnosis Excessive daytime [...] May 07, 2025 11:21amRight leg painnoneactiveAugus2024 11:21am [facility] Work Phone: Evaluation note* Diagnosis Excessive [...] this section [facility] reason for referral (narrative)No reason for referral information availableAvita Health System [facility] Work Phone: Summary Purpose Family History [...] May 11:42am Hospital Course Note MR#: [id number] [facility] Pt. Name: Matty Garces Admitted: [...] and content) DATE CREATED AUTHOR 07/19/2019 [facility] DATE CREATED AUTHOR AUTHOR'S ORGANIZ ATION 02/27/2022 [facility] DATE CREATED AUTHOR AUTHOR'S ORGANIZ ATION 12/08/2022 [facility] DATE CREATED AUTHOR AUTHOR'S ORGANIZ ATION 12/03/2023 [facility] DATE CREATED AUTHOR AUTHOR'S ORGANIZ ATION 10/15/2024 [facility] DATE CREATED AUTHOR AUTHOR'S ORGANIZ ATION 06/23/2025 [facility] DATE CREATED AUTHOR AUTHOR'S ORGANIZ ATION 07/15/2025 [facility] EPIC Care Team (unrecognized sect ion and content) Team Status: Inactive Member Role Status Dates Trey Vallejo DPM MS Attending Provider Active Start: January 03, 2024 End: January 03, 2024Team MemberRelationshipSpecialtyStart DateEnd Date Venus Jaeger MD [address] [place] [address] PCP - GeneralFamily Medicine01/10/24Team MemberRelationshipSpecialtyStart DateEnd Date Venus Jaeger MD [address] [place] [address] PCP - GeneralFamily Medicine01/10/24Team MemberRelationshipSpecialtyStart DateEnd Date Venus Jaeger MD [address] [place] [facility] [address] PCP - GeneralFamily Medicine01/10/24Team MemberRelationshipSpecialtyStart DateEnd Date Venus Jaeger MD [address] [place] [facility] [address] PCP - GeneralFamily Medicine01/10/24 Team Status: Inactive Member Role Status Dates Trye Vallejo DPM MS Attending Provider Active Start: September 21, 2024 End: September 21, 2024Team MemberRelationshipSpecialtyStart DateEnd Venus Jaeger MD [address] [place] [facility] [place] [address] PCP - GeneralFamily Medicine01/10/24Team MemberRelationshipSpecialtyStart DateEnd Venus Jaeger MD [address] [place] [facility] [place] [address] PCP - GeneralFamily Medicine01/10/24Team MemberRelationshipSpecialtyStart DateEnd Date Venus Jaeger MD [address] [place] [facility] [address] PCP - GeneralFamily Medicine01/10/24Team MemberRelationshipSpecialtyStart DateEnd Date Venus Jaeger MD [address] [place] [facility] [place] [address] PCP - GeneralFamily Medicine01/10/24Team MemberRelationshipSpecialtyStart DateEnd Date Venus Jaeger MD [address] [place] [address] PCP - [facility]01/10/24Team MemberRelationshipSpecialtyStart DateEnd Date Venus Jaeger MD PCP - [facility]01/10/24Team MemberRelationshipSpecialtyStart DateEnd Date Venus Jaeger MD PCP - [facility]01/10/24Team MemberRelationshipSpecialtyStart DateEnd Venus Jaeger MD PCP - [facility]01/10/24 Team Status: Active Member Role Status Lacey Jaeger MD Primary Care Provider Active Team Status: Inactive Member Role Status Lacey Jaeger MD Primary Care Provider Active Start: May 07, 2025 End: May 07, 2025JuDania Paulson ProviderActiveStart: May 07, 2025 End: May 07, 2025Team MemberRelationshipSpecialtyStart DateEnd Date Venus Jaeger MD PCP - [facility]01/10/24Team MemberRelationshipSpecialtyStart DateEnd Venus Jaeger MD PCP - [facility]01/10/24 Team Status: Inactive Member Role Status [...] DateEnd Date Venus Jaeger MD [address] [place] [address] PCP - [facility]07/13/25Team MemberRelationshipSpecialtyStart Date End Date Venus Jaeger MD [address] [place] [address] PCP - [facility]07/13/25 Goals (unrecognized section and content) Goals [...] BE BASED ON THE PRIMARY CLINICAL RECORDS. [facility]. provides no warranty or guarantee of the accuracy or completeness of information in this document.
--- NOTE | 2025-08-21 03:44 | ED.EXTPRO1 ---
HPI - Extremity Problem General Chief complaint: Extremity Problem, Nontraumatic Stated complaint: POSSIBLE DVT Time Seen by Provider: 08/21/25 03:40 Source: patient Mode of arrival: Wheelchair Limitations: no limitations History of Present Illness HPI Narrative: past osteomyelitis with amputation left great toe. ORIF right distal tibia 09/2024. States madhu placed as repair. States fractured never completely healed. Presents complaining of brothers of his right leg at fracture site. Pain extends up to his right groin. Low grade fever. No vomiting. Related Data Home Medications ?Medication ?Instructions ?Recorded ?Confirmed carvedilol 25 mg tablet 25 mg PO BID 06/14/23 08/21/25 furosemide 20 mg tablet 20 mg PO DAILY PRN edema 06/14/23 08/21/25 gabapentin 600 mg tablet 600 mg PO DAILY@1200 06/14/23 08/21/25 pantoprazole 40 mg tablet,delayed 40 mg PO Q12H 06/14/23 08/21/25 release simvastatin 20 mg tablet 20 mg PO .qhs 06/14/23 08/21/25 modafinil 200 mg tablet 200 mg PO BID 09/04/23 08/21/25 potassium chloride 10 mEq 10 meq PO Q12H 09/04/23 08/21/25 tablet,extended release amantadine HCl 100 mg tablet 100 mg PO BID 12/28/23 08/21/25 cholecalciferol (vitamin D3) 125 6,000 unit PO DAILY 12/28/23 08/21/25 mcg (5,000 unit) capsule multivitamin (Daily Multi-Vitamin 1 tab PO DAILY@1200 12/28/23 08/21/25 tablet) biotin 10 mg tablet 10 mg PO DAILY@1200 09/19/24 08/21/25 citalopram 40 mg tablet 40 mg PO DAILY 09/20/24 08/21/25 aspirin 81 mg tablet,delayed 81 mg PO DAILY 03/06/25 08/21/25 release (Adult Low Dose Aspirin) meclizine 25 mg tablet 25 mg PO DAILY PRN dizziness 03/06/25 08/21/25 sodium, calcium, magnesium, 4.5 g PO HS 03/06/25 08/21/25 potassium oxybates 0.5 gram/mL oral soln (Xywav) sumatriptan succinate 100 mg 100 mg PO Q2H PRN migraine headache 03/06/25 08/21/25 tablet (Imitrex) doxazosin 8 mg tablet 8 mg PO DAILY@1200 08/21/25 08/21/25 glycopyrrolate 1 mg tablet 1 mg PO BID@0600,1200 08/21/25 08/21/25 Previous Rx's ?Medication ?Instructions ?Recorded apixaban 5 mg tablet (Eliquis) 5 mg PO BID #60 tabs 06/21/25 Allergies Allergy/AdvReac Type Severity Reaction Status Date / Time No Known Drug Allergies Allergy Verified 08/21/25 03:21 Review of Systems ROS Status of ROS 10 or more systems reviewed and unremarkable except as noted in history and below [facility] Medical History DVT (deep venous thrombosis) ?I82.409 - Acute embolism and thrombosis of unspecified deep veins of unspecified lower extremity (ICD-10) Cellulitis of right leg ?L03.115 - Cellulitis of right lower limb (ICD-10) Pain in right leg ?M79.604 - Pain in right leg (ICD-10) Type 2 diabetes mellitus with foot ulcer ?E11.621 - Type 2 diabetes mellitus with foot ulcer (ICD-10) ?L97.509 - Non-pressure chronic ulcer of other part of unspecified foot with unspecified severity (ICD-10) Type 2 diabetes mellitus with diabetic polyneuropathy ?E11.42 - Type 2 diabetes mellitus with diabetic polyneuropathy (ICD-10) Acute hypercapnic respiratory failure ?J96.02 - Acute respiratory failure with hypercapnia (ICD-10) Foot ulcer ?L97.509 - Non-pressure chronic ulcer of other part of unspecified foot with unspecified severity (ICD-10) Cellulitis of left leg ?L03.116 - Cellulitis of left lower limb (ICD-10) Chronic foot ulcer ?L97.509 - Non-pressure chronic ulcer of other part of unspecified foot with unspecified severity (ICD-10) Chronic pain syndrome ?G89.4 - Chronic pain syndrome (ICD-10) Lumbar spondylosis ?M47.816 - Spondylosis without myelopathy or radiculopathy, lumbar region (ICD-10) Peripheral neuropathy ?G62.9 - Polyneuropathy, unspecified (ICD-10) Type 2 diabetes mellitus ?E11.9 - Type 2 diabetes mellitus without complications (ICD-10) Closed fracture of left distal fibula ?S82.832A - Other fracture of upper and lower end of left fibula, initial encounter for closed fracture (ICD-10) Ankle fracture ?S82.899A - Other fracture of unspecified lower leg, initial encounter for closed fracture (ICD-10) Prolonged emergence from general anesthesia ?T88.59XA - Other complications of anesthesia, initial encounter (ICD-10) Pain management contract signed ?Z02.89 - Encounter for other administrative examinations (ICD-10) Back pain ?M54.9 - Dorsalgia, unspecified (ICD-10) PTSD (post-traumatic stress disorder) ?F43.10 - Post-traumatic stress disorder, unspecified (ICD-10) Depression ?F32.A - Depression, unspecified (ICD-10) Dysphagia ?R13.10 - Dysphagia, unspecified (ICD-10) Uvulitis ?K12.2 - Cellulitis and abscess of mouth (ICD-10) Insomnia ?G47.00 - Insomnia, unspecified (ICD-10) Migraine ?G43.909 - Migraine, unspecified, not intractable, without status migrainosus (ICD-10) GERD (gastroesophageal reflux disease) ?K21.9 - Gastro-esophageal reflux disease without esophagitis (ICD-10) Dyspnea on exertion ?R06.09 - Other forms of dyspnea (ICD-10) Heart valve disorder ?I38 - Endocarditis, valve unspecified (ICD-10) Hypoglycemia ?E16.2 - Hypoglycemia, unspecified (ICD-10) Delayed recovery from anesthesia Chronic foot ulcer ?L97.509 - Non-pressure chronic ulcer of other part of unspecified foot with unspecified severity (ICD-10) 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 - Central serous chorioretinopathy, unspecified eye (ICD-10) Chronic pain ?G89.29 - Other chronic pain (ICD-10) Narcolepsy ?G47.419 - 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) Anxiety ?F41.9 - Anxiety disorder, unspecified (ICD-10) Upper back pain ?M54.9 - Dorsalgia, unspecified (ICD-10) Low back pain ?M54.50 - Low back pain, unspecified (ICD-10) TMJ (dislocation of temporomandibular joint) ?S03.00XA - Dislocation of jaw, unspecified side, initial encounter (ICD-10) Obesity ?E66.9 - Obesity, unspecified (ICD-10) Sleep apnea ?G47.30 - Sleep apnea, unspecified (ICD-10) Hypertension ?I10 - Essential (primary) hypertension (ICD-10) Surgical History H/O foot surgery ?Z98.890 - Other specified postprocedural states (ICD-10) H/O radiofrequency ablation (RFA) of nerve of lumbar spine ?Z98.890 - Other specified postprocedural states (ICD-10) History of fusion of cervical spine ?Z98.1 - Arthrodesis status (ICD-10) H/O inguinal hernia repair ?Z98.890 - Other specified postprocedural states (ICD-10) ?Z87.19 - Personal history of other diseases of the digestive system (ICD-10) H/O repair of rotator cuff ?Z98.890 - Other specified postprocedural states (ICD-10) History of uvulopalatopharyngoplasty ?Z98.890 - Other specified postprocedural states (ICD-10) Family History Father Family history of CHF (congestive heart failure) Family history of diabetes mellitus Family history of hypertension Grandfather Family history of myocardial infarction Family history of stroke Grandmother Family history of stroke Social History (Updated 08/21/25 @ 09:49 by Parvin Merlos) Within the past year, how often did you have a drink containing alcohol: 2-4 times a month Within the past year, how many standard drinks containing alcohol did you have on a typical day: 1 or 2 Within the past year, how often did you have six or more drinks on one occasion: less than monthly Total score: 1 Score interpretation: A score less than 4 is consistent with normal alcohol consumption. Smoking status: Never smoker Non-prescribed substance use: cannabis (any form) Previous occupational history: unemployed Highest level of school completed/degree received: high school graduate Are you now , , , , never or living with a partner: In a typical week, how many times do you talk on the telephone with family, friends, or neighbors: twice per week How often do you get together with friends or relatives: twice per week How often do you attend mosque or judaism services: never Do you belong to any clubs or organizations such as mosque groups unions, fraternal or athletic groups, or school groups: no Total score: 2 Score interpretation: A score of greater than or equal to 2 indicates the lowest level of social isolation. Little interest or pleasure in doing things: not at all Feeling down, depressed, or hopeless: not at all Feel stressed/tense/nervous/anxious/difficulty sleeping: not at all Do you think of yourself as: straight/heterosexual Gender Identity: male Exam Constitutional Vital Signs, click to edit/add: Last Vital Signs Temp 97.9 F 08/22/25 04:00 Pulse 72 08/22/25 06:00 Resp 18 08/22/25 04:00 BP 134/78 08/22/25 04:00 Pulse Ox 94 L 08/22/25 04:00 O2 Del Method Room Air 08/22/25 04:00 Common normals: average body habitus, oriented x3, no limitations, healthy appearing, alert and well nourished [facility] Common normals: normocephalic and head/scalp atraumatic Eye Common normals: EOMs intact bilaterally and conjunctivae normal Respiratory Common normals: normal respiratory effort, no retractions, no use of accessory muscles and clear to auscultation bilaterally Cardio Common normals: regular rate, regular rhythm, S1 normal heart sound and S2 normal heart sound Extremity Extremity image (front):  1. right plantar ulcer that is tender with erythema extending up toward the right knee. Tenderness right groin Neuro Common normals: oriented x3, CN's II-XII intact bilaterally, moves all extremities and no focal motor deficits Psych Appearance: grossly normal Course Vital Signs Vital signs: Vital Signs Temperature 99.6 F 08/21/25 03:16 Pulse Rate 101 H 08/21/25 03:16 Respiratory Rate 18 08/21/25 03:16 Blood Pressure 137/87 08/21/25 03:16 Pulse Oximetry 97 08/21/25 03:16 Oxygen Delivery Method Room Air 08/21/25 03:16 Temperature 97.9 F 08/22/25 04:00 Pulse Rate 72 08/22/25 06:00 Respiratory Rate 18 08/22/25 04:00 Blood Pressure 134/78 08/22/25 04:00 Pulse Oximetry 94 L 08/22/25 04:00 Oxygen Delivery Method Room Air 08/22/25 04:00 MDM - Extremity (Nontraumatic) MDM Narrative Medical decision making narrative: patient presents complaining of pain of his right leg that extends into his right groin. Exam finds ulcer right plantar first MTP joint. The toe is tender and there is a faint site of erythema extending from the toe to the leg and then the obvious cellulitis at the fracture repair site of his right leg followed by another red streak toward his knee. He has tenderness right groin area. WBC elevated at 12.3. CRP 1.76. He has low grade temp. xrays without obvious preliminary reading of osteo. Discussed with the hospitalist and patient is accepted for admission Lab Data Labs: Lab Results 08/21/25 Range/Units 04:02 WBC 12.3 H (4.0-11.0) 10^3/uL RBC 4.59 L (4.70-6.10) 10^6/uL Hgb 13.0 L (14.0-18.0) g/dL Hct 39.2 L (42.0-54.0) % MCV 85.4 (80.0-94.0) fL MCH 28.3 (25.9-34.0) pg MCHC 33.2 (29.9-35.2) g/dL RDW 15.5 H (11.0-15.0) % Plt Count 127 L (150-450) 10^3/uL MPV 10.0 (9.5-13.5) fL Seg Neuts % (Manual) 92.0 H (43.0-75.0) Lymphocytes % (Manual) 1.0 L (20.5-60.0) % Atypical Lymphs % (Man) 3.0 % Monocytes % (Manual) 4.0 (1.7-12.0) % Eosinophils % (Manual) 1.0 (0.9-7.0) % Basophils % (Manual) 0.0 L (0.2-2.0) % Neutrophils # (Manual) 11.31 H (1.4-6.5) 10^3/uL Lymphocytes # (Manual) 0.12 L (1.20-3.80) 10^3/uL Abs Atypical Lymphs Man 0.36 Monocytes # (Manual) 0.49 (0.30-0.80) 10^3/uL Eosinophils # (Manual) 0.12 (0.00-0.70) 10^3/uL Basophils # (Manual) 0.00 (0.00-0.10) 10^3/uL ESR 31 H (<=20) mm/hr Sodium 136 (136-145) mmol/L Potassium 3.9 (3.5-5.1) mmol/L Chloride 101 (98-107) mmol/L Carbon Dioxide 31.3 (21.0-32.0) mmol/L Anion Gap 7.6 BUN 15.0 (7.0-18.0) mg/dL Creatinine 1.12 (0.70-1.30) mg/dL Est GFR ( Amer) >60 (>=60 mL/min/1.73m^2) Est GFR (Non-Af Amer) >60 (>=60 mL/min/1.73m^2) BUN/Creatinine Ratio 13.4 Glucose 108 H (74-106) mg/dL Estimat Average Glucose 123 mg/dL Hemoglobin A1c 5.9 (4.5-6.2) % Lactate 1.1 (0.4-2.0) mmol/L Calcium 9.0 (8.5-10.1) mg/dL Troponin I High Sens 4.8 (4.0-76.1) pg/mL C-Reactive Protein 1.76 H (<=0.50) mg/dL Triglycerides 101 (<=150) mg/dL Cholesterol 167 (<=200) mg/dL LDL Cholesterol, Calc 100.8 mg/dL VLDL Cholesterol 20.2 mg/dL HDL Cholesterol 46 (40-60) mg/dL Cholesterol/HDL Ratio 3.6 Discharge Plan Discharge Chief Complaint: Extremity Problem, Nontraumatic Clinical Impression: Cellulitis of foot, right, Cellulitis of leg, right Patient Disposition: Admitted As Inpatient Discharge Date/Time: 08/21/25 08:54
--- NOTE | 2025-08-21 03:48 | XR_ITS ---
[address] [address] Patient Name: MATTY WADE MRN: [id number] date: 1970 Sex: M Assigned Patient Location: ER Current Patient Location: ED.MAIN Accession/Order Number: [id number] Exam Date: 08/21/2025 04:30 Report Date: 08/21/2025 08:12 At the request of: MARNIE RICHEY MD Procedure: XR tibia fibula RT 2V XR tibia fibula RT 2V 08/21/2025 4:39 AM SIGNS AND SYMPTOMS: ^osteomeylitis PROTOCOL: Frontal and lateral radiographs of the right tibia and fibula COMPARISON: 05/07/2025 FINDINGS: There is hardware fixation of a previous fracture of the distal shaft of the tibia. There is periosteal new bone formation with incomplete healing. There is a transversely oriented fracture of the distal fibula with similar periosteal new bone formation and incomplete healing. No osteolytic or bony destructive process to suggest osteomyelitis. There is Achilles surface calcaneal spurring. XR/XR tibia fibula RT 2V IMPRESSION: There are healing fractures of the distal tibia and fibula without hardware complication. Healing remains incomplete. No osteolytic or bony destructive process to suggest osteomyelitis. Impression dictated by: Francis Irving M.D. 08/21/2025 8:12 AM Dictation Location: [facility] Electronically authenticated by: [id number] Y Date: 08/21/2025 08:12
[2025-08-21] MEDS: 0.9 % SODIUM CHLORIDE 1,000 ML 999 ML IV (04:07)
[2025-08-21] MEDS: CLINDAMYCIN PHOSPHATE/D5W 900 MG/50 ML PREMIX 100 MG IV (04:07)
[2025-08-21 04:15] LABS: Hematocrit 39.2 % (42.0-54.0); Hemoglobin 13.0 g/dL (14.0-18.0); Mean Corpuscular HGB Conc 33.2 g/dL (29.9-35.2); Mean Corpuscular Hemoglobin 28.3 pg (25.9-34.0); Mean Corpuscular Volume 85.4 fL (80.0-94.0); Platelet Count 127 10^3/uL (150-450); Red Blood Count 4.59 10^6/uL (4.70-6.10); White Blood Count 12.3 10^3/uL (4.0-11.0)
[2025-08-21 04:31] LABS: Atypical Lymphocytes % Manual 3.0 %; Atypical Lymphocytes Abs Man 0.36; Basophils Abs Manual 0.00 10^3/uL (0.00-0.10); Basophils Percent Manual 0.0 % (0.2-2.0); Eosinophils Absolute Manual 0.12 10^3/uL (0.00-0.70); Eosinophils Percent Manual 1.0 % (0.9-7.0); Lymphocytes Absolute Manual 0.12 10^3/uL (1.20-3.80); Lymphocytes Percent Manual 1.0 % (20.5-60.0); Monocytes Absolute Manual 0.49 10^3/uL (0.30-0.80); Monocytes Percent Manual 4.0 % (1.7-12.0); Segmented Neut Absolute Manual 11.31 10^3/uL (1.4-6.5); Segmented Neutrophils % Manual 92.0 (43.0-75.0)
[2025-08-21 04:35] LABS: Anion Gap 7.6; Blood Urea Nitrogen 15.0 mg/dL (7.0-18.0); Calcium 9.0 mg/dL (8.5-10.1); Carbon Dioxide 31.3 mmol/L (21.0-32.0); Chloride 101 mmol/L (98-107); Estimated GFR (African America >60 (>=60 mL/min/1.73m^2); Estimated GFR (Non-African Ame >60 (>=60 mL/min/1.73m^2); Glucose 108 mg/dL (74-106); Lactate/Lactic Acid 1.1 mmol/L (0.4-2.0); Potassium 3.9 mmol/L (3.5-5.1); Sodium 136 mmol/L (136-145)
--- NOTE | 2025-08-21 06:29 | XR_ITS ---
[facility] [place] [id number] Patient Name: MATTY WADE MRN: [id number] date: 1970 Sex: M Assigned Patient Location: ED.MAIN Current Patient Location: ED.MAIN Accession/Order Number: [id number] Exam Date: 08/21/2025 06:50 Report Date: 08/21/2025 08:15 At the request of: MARNIE RICHEY MD Procedure: XR foot RT min 3V XR foot RT min 3V 08/21/2025 6:55 AM SIGNS AND SYMPTOMS: ^pain PROTOCOL: 3 views of the right foot COMPARISON: 01/03/2024 FINDINGS: There is a 1.7 cm linear radiodense foreign body in the interspace between the second and third metatarsals. Diffuse soft tissue swelling. There is narrowing of the first metatarsophalangeal joint with destructive changes of the interphalangeal joint of the great toe. There is plantar and Achilles surface calcaneal spurring. There is soft tissue swelling greatest along the great toe. XR/XR foot RT min 3V IMPRESSION: Soft tissue swelling is noted along the great toe suspicious for cellulitis. Bony destructive changes are noted in the interphalangeal joints of the great toe suspicious for osteomyelitis. This has progressed with the prior exam. There is a 1.7 cm linear radiodense foreign body in the interspace between the second and third metatarsals. Diffuse soft tissue swelling. This is unchanged. Impression dictated by: Francis Irving M.D. 08/21/2025 8:15 AM Dictation Location: [employer] Electronically authenticated by: [id number] Y Date: 08/21/2025 08:15
[2025-08-21] MEDS: VANCOMYCIN HCL 2,000 MG in 0.9 % SODIUM CHLORIDE 500 ML 250 MG IV (08:15)
--- OUTSIDE RECORDS SUMMARY | 2025-08-21 08:33 | XMS_ITS | CCD ---
Author Organization [facility] Care Team Providers Care Booth Manager Name Role Phone UNKNOWN, PROVIDER Admitting Unavailable UNKNOWN, PROVIDER Attending Unavailable VENUS JAEGER Referring Unavailable VENUS JAEGER Primary Care Unavailable [place] Procedure Practitioner Unavailab le UNKNOWN, PROVIDER Surgeon Unavailable [place] Procedure Practitioner Unavailab le SANDRA BILL Surgeon Unavailable UNKNOWN, PROVIDER Admitting Unavailable UNKNOWN, PROVIDER Attending Unavailable VENUS JAEGER Referring Unavailable VENUS JAEGER Primary Care Unavailable [place] Procedure Practitioner Unavailab le UNKNOWN, PROVIDER Surgeon [...] Provider Venus Jaeger MD Primary Care Provider [phone] Yoni MAGANA, Trey Smith Attending Provider [phone] MARIANNA SUAREZ Referring Unavailable SUYAPA, SHIN Referring [...] [phone] Venus Jaeger MD Primary Care Provider [phone] Jameel Coats DO Attending Provider [phone] Bonnie Ernandez MD Attending Provider Trey Vallejo Attending Unavailable Trey Vallejo Admitting Unavailable Bonnie Ernandez Attending Unavailable Bonnie Ernandez Admitting Unavailable Jameel Coats Attending Unavailable Jameel Coats Admitting Unavailable Venus Jaeger Primary Care Unavailable Venus Jaeger MD Primary Care Provider [phone] RUBÉN GEIGER Attending Unavailable RUBÉN GEIGER Attending Unavailable RUBÉN GEIGER Attending Unavailable HEATHER RAINEY Attending Unavailab le Allergies Allergy ClassificationReported Allergen(s)Allergy TypeDate of OnsetReaction(s) Facility (1 source)AspartameDrug Wcdpddb78-88-9202Qlq [facility] (1 source)avoid; Translations: [Unknown]Propensity to adverse reactions (disorder)29-85-6367Hzd [facility] (1 source)vitamin B12; Translations: [cyanocobalamin]Drug AllergyUnknown (qualifier value)[facility] (1 source)Acetaminophen / HYDROcodoneDrug AllergyThe [facility] ([facility] source)CorticosteroidsDrug allergy (disorder)[facility] (1 source)fentaNYLDrug AllergyThe [facility] (1 source)Misc-Food; Translations: [Misc-Food]Food allergy (disorder)[facility] (20 sources)fentaNYLDrug Rddcguj43-45-4638XzkrydxXNLM [facility] (20 sources)HYDROcodoneDrug Jjzhgec83-21-4225LhohcuiVXJV Healthcare (20 sources)Morphine And CodeineDrug Vumkorz18-47-4823AztrhhzRNKM Healthcare (20 sources)OtherPropensity to adverse sszpywyhl01-50-4479FNBT [facility] (1 source)CorticosteroidsDrug allergy (disorder)59-83-5946Zrhfwnfrx Repository Medications Current Medications MedicationDrug Class(es)DatesSig (Normalized)Sig (Original)acetaminophen 325 mg / HYDROcodone bitartrate 5 mg oral tablet (20 sources)Opioid AgonistStart: 55-02-8880FSDWDwckdhz-acetaminophen ([place]) 5- 325 MG tablet 03/20/2024 Activeamantadine hydrochloride 100 mg oral tablet (20 sources)Influenza A M2 Protein InhibitorStart: 05-07-2025 End: 54-43-4458imrz 1 tablet by mouth in the morningamantadine (Symmetrel) 100 MG tablet Indications: Excessive daytime sleepiness , Primary insomnia TAKE 1 TABLET (100 MG) BY MOUTH IN THE MORNING AND AT NOON 60 tablet 11 05/16/2025 05/16/2026 ActiveStart: 04-10-2024 End: 31-58-9749kzbu 1 tablet by mouth in the morningamantadine (Symmetrel) 100 MG tablet Indications: Excessive daytime sleepiness , Primary insomnia Take 1 tablet (100 mg) by mouth in the morning and at noon 180 tablet 3 04/10/2024 04/10/2025 Activeaspirin 81 mg delayed release oral tablet (20 sources)Platelet Aggregation Inhibitor, Nonsteroidal Anti-inflammatory Drug Start: 57-79-5266ebya 1 tablet by mouth once dailyASPIRIN 81 MG chewable tablet Chew 81 mg in the morning. ActiveB-D 3CC LUER-SAYRA SYR 23GX1 23G X 1 3 ML misc (20 sources)Start: 92-71-5773W-D 3CC LUER-SAYRA SYR 23GX1 23G X 1 3 ML misc USE 1 SYRINGE INTRAMUSCULARLY ONCE A WEEK 05/18/2023ctiveBiotin (20 sources)Start: 04-72-9506UPLFVD BIOTIN Start Date: 02/26/22 Status: Ordered Start: 76-04-6944sjqw 1 tablet by mouth once dailycelecoxib 100 mg oral capsule (20 sources)Nonsteroidal Anti-inflammatory DrugCeleBREX 100 MG capsule 1 (one) time each day at the same time Activecholecalciferol 0.125 mg oral capsule (20 sources)Vitamin DStart: 58-01-9832mxwtvgcsriudidi (Vitamin D-3) 125 MCG (5000 UT) capsule 03/15/2024 ActiveclonazePAM 1 mg oral tablet (20 sources)BenzodiazepineStart: 03-27-2024 End: 21-08-8730bkgm 1 tablet by mouth at bedtimeclonazePAM (KlonoPIN) 1 MG tablet Indications: Primary insomnia Take 1 tablet (1 mg) by mouth at bedtime 30 tablet 2 07/04/2024 ActiveStart: 89-63-0840AxzkgyfGJC 0.5 mg Tab Refills(s) 0 Start Date: 02/26/22 Status: OrderedStart: 10-67-8817zpli 2 tablets by mouth at bedtimeStart: 12-43-6093ypxl 1 mg by mouth at bedtimeClonazepam Active 0.05 mg/kg PO Bedtime May 14, 2018 12:00amdiazePAM 5 mg oral tablet (5 sources)BenzodiazepineStart: 56-33-3141bdkf 1 tablet by mouth at bedtime diclofenac sodium 75 mg delayed release oral tablet (5 sources)Nonsteroidal Anti-inflammatory DrugStart: 63-58-4705lkgn 1 tablet by mouth twice dailydoxazosin 8 mg oral tablet (20 sources)alpha-Adrenergic BlockerStart: 83-22-8396tpuqwbwqx 8 mg oral tablet Refills(s) 0 Start Date: 02/26/22 Status: Ordereddoxepin hydrochloride 10 mg oral capsule (20 sources)Tricyclic AntidepressantStart: 10-81-7317qfaohgf 10 mg Cap Refills(s) 0 Start Date: [...] 600 mg oral tablet (20 sources)Anti-epileptic AgentStart: 92-86-8453tzgy 1 tablet by mouth three times dailyglycopyrrolate 1 mg oral tablet (20 sources)Start: 85-56-0776rzhj 1 tablet by mouth in the morningglycopyrrolate (Robinul) 1 MG tablet Take 1 mg by mouth in the morning and 1 mg before bedtime. 01/22/2023 ActiveStart: 05-32-7720eglakobzetykfg 1 mg oral tablet Refills(s) 0 Start Date: 02/26/22 Status: OrderedhydrOXYzine pamoate 25 mg oral capsule (20 sources)AntihistamineStart: 16-61-3726ijrk 1 capsule by mouth once daily at bedtimehydrOXYzine pamoate (Vistaril) 25 MG capsule Indications: Primary insomnia TAKE ONE CAPSULE BY MOUTH ONCE DAILY AT BEDTIME 30 capsule 11 05/11/2024 Activelisinopril 10 mg oral tablet (5 sources)Angiotensin Converting Enzyme InhibitorStart: 57-62-4491udyb 1 tablet by mouth once dailymeclizine hydrochloride 25 mg chewable tablet (20 sources)AntiemeticMeclizine HCl 25 MG chewable tablet Chew 25 mg 1 (one) time each day at the same time. Activemelatonin 10 mg oral capsule (20 sources)Start: 07-14-2023 End: 71-10-1744lzkq 1 capsule by mouth at bedtimeMelatonin 10 MG capsule Indications: Primary insomnia Take 10 mg by mouth at bedtime 90 capsule 3 07/04/2025 ActiveMultiple Vitamins-Minerals (Multi For Him 50+) tablet (20 sources)Multiple Vitamins-Minerals (Multi For Him 50+) tablet as directed Orally Activeomeprazole 40 mg delayed release oral capsule (5 sources)Proton Pump InhibitorStart: 69-67-9558gkxz 1 capsule by mouth twice dailyondansetron 4 mg oral tablet (20 sources)Serotonin-3 Receptor AntagonistStart: 11-14-2024 End: 68-54-1427tpzf 2 tablets by mouth every eight hours for nauseaondansetron (Zofran) 4 MG tablet Indications: Projectile vomiting with nausea Take 2 tablets (8 mg)by mouth every 8 (eight) hours if needed for nausea or vomiting 30 tablet 3 11/14/2024 12/14/2024 ActiveStart: 11-65-1053yxygmxeeios ODT (Zofran-ODT) 4 MG disintegrating tablet 03/15/2024 ActiveStart: 42-93-3395rpexnhfdylm (Zofran) 4 MG tablet Take 4 mg by mouth if needed. ActiveOXcarbazepine 300 mg oral tablet (20 sources)Anti-epileptic Agenttake 1 tablet by mouth at bedtimeOXcarbazepine (Trileptal) 300 MG tablet Take 300 mg by mouth at bedtime. Activeoxybates, calcium, magnesium, potassium and sodium, (Xywav) 500 MG/ML solution (2 sources)Start: 04-04-2025 End: 72-01-4428llkc 3.75 g by mouth at bedtimeoxybates, calcium, magnesium, potassium and sodium, (Xywav) 500 MG/ML solution Indications: Narcolepsy cataplexy syndrome (HCC) Take 3.75 g by mouth at bedtime 225 mL 2 04/04/2025 05/04/2025 Activepotassium chloride 10 meq extended release oral tablet (20 sources)Start: 33-09-6081wjfj 1 tablet by mouth at mealtimepotassium chloride CR (Klor-Con) 10 MEQ ER tablet Take 10 mEq by mouth in the morning. Take with food. . 02/22/2023 Activesennosides, care home 8.6 mg oral tablet (20 sources)Start: 56-11-2043dujsl (Senokot) 8.6 MG tablet 03/15/2024 Active simvastatin 20 mg oral tablet (20 sources)HMG-CoA Reductase InhibitorStart: 17-08-5475hejz 1 tablet by mouth once dailySUMAtriptan 100 mg oral tablet (20 sources)Serotonin-1b and Serotonin-1d Receptor AgonistStart: 80-09-3199haxx 1 tablet by mouth onceSUMAtriptan (Imitrex) 100 MG tablet Take 100 mg by mouth 1 (one) time if needed. Active1 ml testosterone cypionate 200 mg/ml injection (20 sources)Androgentestosterone cypionate (Depo-Testosterone) 200 MG/ML injection Inject 200 mg into the shoulder, thigh, or buttocks every 14 (fourteen) days. Activethiamine 100 mg oral tablet (15 sources)Start: 07-05-2024 End: 10-20-2906lgrb 1 tablet by mouth once dailythiamine (Vitamin B-1) 100 MG tablet Indications: Excessive daytime sleepiness Take 1 tablet (100 mg) by mouth Daily 30 tablet 11 07/05/2024 07/05/2025 ActivetiZANidine 4 mg oral capsule (20 sources)Central alpha-2 Adrenergic AgonistStart: 16-86-2584pxsx 1 capsule by mouth at bedtimetake 1 tablet by mouth at bedtimetiZANidine (Zanaflex) 4 MG tablet Take 4 mg by mouth at bedtime. ActiveVit D3-Folic Xlsy-E1-Y7-B12 (1 source)Start: 04-36-4137ktrm 1 tablet by mouth once dailyVit D3-Folic Tavs-D5-W8-B12 Active 1 TAB PO Daily May 14, 2018 12:00amVit D3-Folic Rlkz-O4-X2-B12 2,000-800-0.32 unit-mcg-mg Tablet (4 sources)Start: 89-80-2226ljcp 1 tablet by mouth once dailyStart: 05-14-2018 take 1 tablet by mouth once dailyVit D3-Folic Qjnb-Y0-I4-B12 2,000-800-0.32 unit-mcg-mg Tablet Active 1 TAB PO Daily May 13, 2018 11:00pm Completed/Discontinued Medications MedicationDrug Class(es)DatesSig (Normalized)Sig (Original)apixaban 5 mg oral tablet (3 sources)Factor Xa InhibitorStart: 71-16-5877Cbyevnqj (Eliquis) 5 mg tablet Discontinued MG PO May 07, 2025 12:00amcarvedilol 25 mg oral tablet (20 sources)alpha-Adrenergic Jorge L, beta-Adrenergic BlockerStart: 02-26-2022 Carvedilol 25 mg tablet Discontinued MG PO May 07, 2025 12:00amStart: 66-00-8812stno 1 tablet by mouth twice dailycitalopram 40 mg oral tablet (20 sources)Serotonin Reuptake InhibitorStart: 11-56-4151Hntmcfklhu 40 mg tablet Discontinued MG PO May 07, 2025 12:00amStart: 87-76-7119UiaiVK 20 MG tablet 1 (one) time each day at the same time. 06/02/2023 Activefurosemide 20 mg oral tablet (20 sources)Loop DiureticStart: 20-46-6744Tcapxpuzxv 20 mg tablet Discontinued MG PO May 07, 2025 12:00ammodafinil 200 mg oral tablet (20 sources)Sympathomimetic-like AgentStart: 05-07-2025 End: 35-99-2798qrxe 1 tablet by mouth in the morningmodafinil (Provigil) 200 MG tablet Indications: Excessive daytime sleepiness , Obstructive sleep apnea TAKE 1 TABLET (200 MG) BY MOUTH IN THE MORNING AND AT NOON 60 tablet 2 05/16/2025 07/13/2025 Discontinued (Reorder)Start: 04-10-2024 End: 88-11-3789rdwe 1 tablet by mouth in the morningmodafinil (Provigil) 200 MG tablet Indications: Excessive daytime sleepiness , Obstructive sleep apnea Take 1 tablet (200 mg) by mouth in the morning and at noon 180 tablet 01/03/2025 ActiveStart: 98-17-7664khuapmjnk 200 mg Tab Refills(s) 0 Start Date: 02/26/22 Status: Orderedpantoprazole 40 mg delayed release oral tablet (20 sources)Proton Pump InhibitorStart: 42-00-8304Jbdvedqyvwgw 40 mg tablet,delayed release (DR/EC) Discontinued MG PO May 07, 2025 12:00am Problems Active Problems Problem ClassificationProblemDateDocumented DateEpisodic/ChronicAnxiety disorders (20 sources)Anxiety disorder, unspecified; Translations: [Anxiety disorder] Onset: 242814-51-7685YzbmhaxWpgzsipfq and vision defects (1 source)Unspecified visual loss; Translations: [UNSPECIFIED VISUAL LOSS]Onset: 03-16-4720VvrnmgcCfpdbdtaat heart failure; nonhypertensive (20 sources)Chronic combined systolic and diastolic heart failure; Translations: [Chronic combined systolic (congestive) and diastolic (congestive) heart failure]Onset: 409859-18-0462VfhivuoLopflejx, dementia, and amnestic and other cognitive disorders (20 sources)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; Translations: [Unspecified mental disorder due to known physiological condition]Onset: 954095-85-4890PzvrevoWdgaaqav mellitus without complication (20 sources)Type 2 diabetes mellitus without complications; Translations: [Diabetes mellitus without complication]Onset: hronic Disorders of lipid metabolism (1 source)Pure hypercholesterolemia, unspecified; Translations: [PURE HYPERCHOLESTEROLEMIA UNSPEC]Onset: 15-64-0204YpvmujhG Codes: Place of occurrence (2 sources)Unspecified place in unspecified non-institutional (private) residence as the place of occurrence of the external cause; Translations: [Unspecified place in unspecified non-institutional (private) residence as the place of occurrence of the external cause]Onset: 30-44-8017CtmxfqchZqxocasngm disorders (1 source)Gastro-esophageal reflux disease without esophagitis; Translations: [GERD WITHOUT ESOPHAGITIS]Onset: 12-41-6289CuhqtrcUsezmqvec hypertension (20 sources)Essential (primary) hypertension; Translations: [Hypertensive disorder]Onset: 972801-80-2025DgsimncNjuaezxc; including migraine (20 sources)Migraine; Translations: [Migraine, unspecified, not intractable, without status migrainosus]Onset: 147572-37-3879DemklqdDwtetmxdhxu of prostate (1 source)Benign prostatic hypertrophy without outflow obstruction; Translations: [Benign prostatic hyperplasia without lower urinary tract symptoms]Onset: 52-80-9620MeojripUlmpthajcvuz with complications and secondary hypertension (15 sources)Hypertensive heart failure; Translations: [Hypertensive heart disease with heart failure]Onset: 683976-52-9418MbssbmoZxszsaucavoaq mental health disorders (20 sources)Primary insomnia; Translations: [Primary insomnia]Onset: 03-11-2023 97-84-8680XldcekcNpfj disorders (1 source)Major depressive disorder, single episode, unspecified; Translations: [MARITZA DEPRESS D/O SINGLE EPIS UNS]Onset: 55-74-7288FavisxwNgiy disorders (1 source)Mood disorders; Translations: [DEPRESSION UNSPECIFIED]Onset: 71-90-3678Uozukr and vomiting (1 source)Projectile vomiting; Translations: [Projectile vomiting]11-14-2024 EpisodicOsteoarthritis (20 sources)Unspecified osteoarthritis, unspecified site; Translations: [Arthritis of right acromioclavicular joint]Onset: hronic Other aftercare (1 source)terminal supervisor (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; Translations: [PHARMACEUTICAL PROCESS ENGINEER 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 ASPIRIN]Onset: 94-82-1293OdmkdqxvCusgf aftercare (1 source)Other bed bug exterminator (current) drug therapy; Translations: [OTH PHARMACEUTICAL PROCESS ENGINEER CURRENT DRUG THERAPY]Onset: 89-81-2392SrssazefQnnfa bone disease and musculoskeletal deformities (3 sources)Hypertrophy of bone; Translations: [Hypertrophy of bone, unspecified tibia and fibula]38-08-4178XvcqvcmwItxjl bone disease and musculoskeletal deformities (1 source)Hypertrophy of bone, unspecified tibia and fibula; Translations: [Hypertrophy of bone, unspecified tibia and fibula]Onset: 83-98-5848Nrymewgv Other connective tissue disease (3 sources)Pain in right forearm; Translations: [PAIN IN RIGHT FOREARM]Onset: 40-63-9722JmdrqfxvLkjon connective tissue disease (1 source)Arthrodesis status; Translations: [ARTHRODESIS STATUS]Onset: 19-61-0418GozphglrPaurf connective tissue disease (2 sources)Muscle weakness of upper limb; Translations: [Other symptoms and signs involving the musculoskeletal system]82-77-2505PcvkvsfgTxzuxkw on above: Problem List clean-up per request of Phys. EHR CmteOther connective tissue disease (3 sources)Pain in right lower limb; Translations: [Pain in right leg]05-07-2025 EpisodicOther diseases of veins and lymphatics (1 source)Varicocele; Translations: [Scrotal varices]Onset: 19-56-1680Dnmqlist Other ear and sense organ disorders (1 source)Unspecified hearing loss, unspecified ear; Translations: [UNS HEARING LOSS UNSPECIFIED EAR]Onset: 80-56-9564WlnrrxcSiqxx endocrine disorders (4 sources)Testicular hypofunction; Translations: [TESTICULAR HYPOFUNCTION] Onset: 84-62-6393EararrzGgyzh inflammatory condition of skin (1 source)Psoriasis, unspecified; Translations: [PSORIASIS UNSPECIFIED]Onset: 55-09-7018PotjubxYgwqq injuries and conditions due to external causes (1 source)Unspecified injury of head, initial encounter; Translations: [UNSPECIFIED INJURY HEAD INITIAL ENC]Onset: 93-90-7768PscfppcpXific male genital disorders (20 sources)Secondary erectile dysfunction; Translations: [Male erectile dysfunction, unspecified]Onset: 993152-35-8409SgvqqvnMjmzz male genital disorders (1 source)Hydrocele of testis; Translations: [Hydrocele, unspecified]Onset: 82-13-7764LeelwcdrPgsvg nervous system disorders (1 source)Narcolepsy without cataplexy; Translations: [NARCOLEPSY WITHOUT CATAPLEXY]Onset: 78-59-5314QtkakgeYxbip nervous system disorders (1 source)Other chronic pain; Translations: [OTHER CHRONIC PAIN]Onset: 29-84-7781AyhgxdiQwxbp nervous system disorders (1 source)Polyneuropathy, unspecified; Translations: [POLYNEUROPATHY UNSPECIFIED]Onset: 20-77-9477IgxfftfCxdca nervous system disorders (20 sources)Carpal tunnel syndrome of right wrist; Translations: [Carpal tunnel syndrome, right upper limb]Onset: 756860-69-0994XqgekckOpzyb nervous system disorders (20 sources)Lesion of ulnar nerve, right upper limb; Translations: [Lesion of ulnar nerve]Onset: 005770-20-6279XgujkvaJjvxy nervous system disorders (20 sources)Chronic pain; Translations: [Other chronic pain]Onset: 12-30-2017 98-59-9234DvzhczoJatcb nervous system disorders (20 sources)Ulnar nerve entrapment; Translations: [Lesion of ulnar nerve, unspecified upper limb]Onset: 189341-44-3757ExooutcRvbtm nervous system disorders (20 sources)Cataplexy and narcolepsy; Translations: [Narcolepsy with cataplexy] Onset: 918673-87-6445UfhpkhwMthmg nutritional; endocrine; and metabolic disorders (15 sources)Obesity; Translations: [Obesity, unspecified]Onset: 09-24-2024 19-21-2849HhizaghCpyo-; endo-; and myocarditis; cardiomyopathy (except that caused by tuberculosis or sexually transmitted disease) (15 sources)Cardiomyopathy; Translations: [Other cardiomyopathies]Onset: 314000-81-1220EojlcmdWahjngrc codes; unclassified (1 source)Sleep apnea, unspecified; Translations: [SLEEP APNEA UNSPECIFIED] Onset: 15-39-3075XghojluIqrcbdwf codes; unclassified (20 sources)Daytime somnolence; Translations: [Other hypersomnia]Onset: 924644-20-5939KxrgyqdZvnqoucj codes; unclassified (20 sources)Obstructive sleep apnea syndrome; Translations: [Obstructive sleep apnea (adult) (pediatric)]Onset: 685125-19-7716IcxhvhzNdykokrx codes; unclassified (2 sources)Obstructive sleep apnea (adult) (pediatric); Translations: [Obstructive sleep apnea (adult) (pediatric)]Onset: 04-59-6578NipdjbkZmfitito codes; unclassified (5 sources)Other hypersomnia; Translations: [Hypersomnia, unspecified]Onset: 391802-30-8599JxaszbgHdfjamrxtei; intervertebral disc disorders; other back problems (20 sources)Cervical disc disorder; Translations: [Cervical disc disorder, unspecified, unspecified cervical region]Onset: hronic Superficial injury; contusion (2 sources)Contusion of right forearm, initial encounter; Translations: [Contusion of other part of head, initial encounter]Onset: 07-52-1774Kaeiqgap Unclassified (1 source)CONTACT W/AND (SUSP) EXPOS COVID-19; Translations: [CONTACT W/AND (SUSP) EXPOS COVID-19]Onset: 01-19-2022 Past or Other Problems Problem ClassificationProblemDateDocumented DateEpisodic/ChronicComa; stupor; and brain damage (20 sources)Clouded consciousness; Translations: [Stupor]Onset: 03-03-2012 86-00-2142SkeliikyU Codes: Fall (18 sources)Unspecified fall, initial encounter; Translations: [Fall in home] Onset: 39-19-2513BsxssixmO Codes: Natural/environment (1 source)Exposure to other specified factors, initial encounter; Translations: [EXPOSURE OTHER SPEC FACTORS INITIAL]Onset: 95-91-5150GuoauyqjBgtltmzb of lower limb (20 sources)Unspecified fracture of shaft of right tibia, initial encounter for closed fracture; Translations: [Unspecified fracture of shaft of right fibula, initial encounter for closed fracture]Onset: 53-05-4142TvemsjdjTqdmxxsrp and duodenitis (20 sources)Gastritis; Translations: [Gastritis, unspecified, without bleeding] Onset: 906748-44-6039YeyrugusZmlot valve disorders (20 sources)Systolic murmur; Translations: [Cardiac murmur, unspecified]Onset: 596403-68-5382LlxiteabJmruwtfgfwzio and screening for infectious disease (1 source)Encounter for immunization; Translations: [ENCOUNTER FOR IMMUNIZATION] Onset: 57-74-5850LgszgupqYvdcpmqayczj conditions of male genital organs (4 sources)Inflammatory disorders of scrotum; Translations: [INFLAMMATORY DISORDERS OF SCROTUM]Onset: 07-54-3865SpxtkrydEzlwsgq and fatigue (20 sources)Fatigue; Translations: [Other fatigue]Onset: EpisodicNoninfectious gastroenteritis (20 sources)Gastroenteritis; Translations: [Noninfective gastroenteritis and colitis, unspecified]Onset: 911394-96-2858RguzkbnxMeodjibfzha chest pain (20 sources)Chest discomfort; Translations: [Other chest pain]Onset: 11-30-2011 55-70-8132DufypywwJeui wounds of extremities (19 sources)Puncture wound without foreign body, left foot, initial encounter; Translations: [Open wound of left great toe]Onset: 38-66-7196HseetxqpAwcoh circulatory disease (20 sources)Capillary hemangioma; Translations: [Nevus, non-neoplastic]Onset: 310177-94-6967GvupqiahDfsjh connective tissue disease (20 sources)Spasm of cervical paraspinous muscle; Translations: [Other muscle spasm]Onset: 596970-85-7010PefdkvpzFangg connective tissue disease (20 sources)Bursitis; Translations: [Bursopathy, unspecified]Onset: 02-27-2011 99-76-3490CzamlazqVxdow connective tissue disease (20 sources)Foot pain; Translations: [Pain in unspecified foot]Onset: 10-07-2012 98-20-3317QjyypnzoMpuny connective tissue disease (20 sources)Muscle pain; Translations: [Myalgia, unspecified site]Onset: 228461-60-9112GkjjeidhPcphb connective tissue disease (20 sources)Impingement syndrome of shoulder region; Translations: [Impingement syndrome of unspecified shoulder]Onset: 566944-21-3586FcjdpnosQoesp connective tissue disease (20 sources)Lateral epicondylitis; Translations: [Lateral epicondylitis, unspecified elbow]Onset: 408504-88-7285YiuzvktnDquts connective tissue disease (20 sources)Other symptoms and signs involving the musculoskeletal system; Translations: [Other musculoskeletalsymptoms referable to limbs]Onset: 966055-63-0814BpbgnkdfUktvijh on above:Problem List clean-up per request of Phys. EHR CmteOther lower respiratory disease (20 sources)Dyspnea; Translations: [Dyspnea, unspecified]Onset: 11-30-2011 70-22-0302XnjluwknNdqzj nervous system disorders (20 sources)Numbness of upper limb; Translations: [Anesthesia of skin]Onset: 162214-48-1527ObgrrzmeCeynsmf on above:Problem List clean-up per request of Phys. EHR CmteOther non-traumatic joint disorders (20 sources)Ankle edema; Translations: [Effusion, unspecified ankle]Onset: 055543-61-8002DcqsrkakQztix non-traumatic joint disorders (20 sources)Joint pain; Translations: [Pain in unspecified joint]Onset: 046370-99-4983MxujjdykJonly screening for suspected conditions (not mental disorders or infectious disease) (20 sources)Encounter for screening for malignant neoplasm of prostate; Translations: [Elevated prostate specific antigen [PSA]]Onset: 03-13-2022 EpisodicOther skin disorders (20 sources)Excessive sweating; Translations: [Generalized hyperhidrosis]Onset: 894441-81-4563ZuzyhdqkXmhxy skin disorders (20 sources)Senile hyperkeratosis; Translations: [Actinic keratosis]Onset: 957036-89-6576AruercipMrbuo skin disorders (20 sources)Hyperhidrosis; Translations: [Generalized hyperhidrosis]Onset: 796662-94-7449JfwvgangUpniu upper respiratory infections (20 sources)Upper respiratory infection; Translations: [Acute upper respiratory infection, unspecified]Onset: 426349-98-0823PlhlobzwYloy and subcutaneous tissue infections (20 sources)Cellulitis; Translations: [Cellulitis, unspecified]Onset: 03-31-2013 34-62-9930EhrkqpzgHgldxkngacg; intervertebral disc disorders; other back problems (20 sources)Cervical disc prolapse with radiculopathy; Translations: [Cervical disc disorder with radiculopathy, unspecified cervical region]Onset: 10-11-2018 24-51-2910PpgbnweuJdxhvxo on above:Problem List clean-up per request of Phys. EHR CmteUrinary tract infections (20 sources)Urinary tract infectious disease; Translations: [Urinary tract infection, site not specified]Onset: 204730-42-6799Uvyntiwv Results Test NameValueInterpretationReference RangeFacilityCT lower leg RT wo pool 90-18-3585NM lower leg RT wo [facility] [place] [address] CT Scan Report Signed Patient: Matty Garces MR#: [id number] : 1970 Acct:[id number] Age/Sex: 54 / M ADM Date: 05/29/25 Loc: CT Room: Type: [facility] CLI Attending Dr: Jameel Coats DO [...] Irving M.D. 05/29/2025 11:40 PM Dictation Location: [place] [address] Transcribed By: [facility] 05/29/25 2340 Dictated By: Francis Irving II, MD 05/29/25 2363 Signed By: 05/29/25 2340[facility] Physician GroupECG 12-LEADon 80-92-7483[place] [address] Electrocardiograph Report Signed Patient: MATTY GARCES MR#: [id number] : 1970 Acct:[id number] Age/Sex: 54 / M ADM Date: 03/05/25 Loc: [place] 221-[address]: Venus Jaeger M.D. 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 Measurements Intervals [place] Rate: 76 P: 60 [place]: 178 QRS: 69 QRSD: 100 T: 46 QT: 406 QTc: 437 Interpretive Statements 1100 Sinus rhythm 0102 ARTIFACT PRESENT 9110 normal ECG Compared to ECG 09/23/2024 05:51:07 No significant changes Electronically Signed On 03-06-2025 9:29:34 EDT by RAMIRO WALLS M.D. Dictated By: RAMIRO WALLS Signed By: 03/06/2529 DD/ 06 TD/TT: [employer] Land[employer] Supervisor:TBHRadiology, Radiologist, - 03/06/[address] [address] Electrocardiograph Report Signed Patient: MATTY GARCES MR#: [id number] : 1970 Acct:[id number] Age/Sex: 54 / M ADM Date: 03/05/25 Loc: [place] 221-[address]: Venus Jaeger M.D. 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 Measurements Intervals [place] Rate: 76 P: 60 [place]: 178 QRS: 69 QRSD: 100 T: 46 QT: 406 QTc: 437 Interpretive Statements 1100 Sinus rhythm 0102 ARTIFACT PRESENT 9110 normal ECG Compared to ECG 09/23/2024 05:51:07 No significant changes Electronically Signed On 03-06-2025 9:29:34 EDT by RAMIRO WALLS M.D. Dictated By: RAMIRO WALLS Signed By: 03/06/25928 DD/ 06 TD/TT: [employer] Supervisor: JEWELS Packer 12-LEADOrdered By: Radiologist Radiology on 68-46-4964[facility] Work Phone: ECG 12-LEADon 58-39-5185Vtamizlgd Study observation (narrative)JEWELS LandryBASIC METABOLIC PANELon 37-53-1478Njdxk gap [Moles/Vol]8 mmol/LNormal7-20UnSt. Vincent HospitalComment on above:Performed By: #### [id number] #### [facility] (BEAKER) [address] [place], [place] [address]Tjckmpx [Mass/Vol]9.7 mg/dLNormal8.6-10.3UnSt. Vincent HospitalComment on above:Performed By: #### [id number] #### [facility] ([facility]) [address] [place], [place] [address]Wklkhlts [Moles/Vol]97 mmol/SNoy35-823PboerdabljSt. Vincent HospitalComment on above:Performed By: #### [id number] #### [facility] ([facility]) [address] [place] [place] [address]SU0 [Moles/Vol]35 mmol/QJocw86-25ZxizeufojcSt. Vincent HospitalComment on above:Performed By: #### [id number] #### [facility] ([facility]) [address] [place] [address]Csqqcpuawi [Mass/Vol]1.02 mg/dLNormal0.70-1.30UnSt. Vincent HospitalComment on above:Performed By: #### [id number] #### [facility] ([facility]) [address] [place] [address]GNRTWUWEIF FILTRATION RATE ML/MIN/1.73 SQ M.YHQRBDHUC27.8 mL/min/1.73m*2Normal>60.0UnSt. Vincent HospitalComment on above: Result Comment: [facility]???s estimated glomerular filtration rate (eGFR) [...] affect anyone group of individuals.Performed By: #### [id number] #### [facility] ([facility]) [address] [place] [place] [address]Epvweua [Mass/Vol]80 mg/oJHhrwmr33-117ZicegalyhlSt. Vincent HospitalComment on above:Performed By: #### [id number] #### [facility] ([facility]) [address] [place] [address]Csyhrubse [Moles/Vol]4.2 mmol/LNormal3.5-5.1UnSt. Vincent HospitalComment on above:Performed By: #### [id number] #### [facility] ([facility]) [address] [place] [address]Ebdola [Moles/Vol]136 mmol/FWyslgw327-863HnqknwausrSt. Vincent HospitalComment on above:Performed By: #### [id number] #### [facility] ([facility]) [address] [place] [place] [address]Twdm nitrogen [Mass/Vol]8 mg/dLNormal7-25UnSt. Vincent HospitalComment on above:Performed By: #### [id number] #### [facility] ([facility]) [address] [place], [place] [address]XVQV NITROGEN/CREATININE (MASS RATIO) IN SER/PLAS7.8Normal [facility] CenterComment on above:Performed By: #### [id number] #### [facility] ([facility]) [address] [place], [place] [address]SBC WITH AUTO DIFFERENTIALon 04-13-5076Bxcpcejbe (Bld) [#/Vol] 0.06 10*3/uLNormal0.00-0.20UnSt. Vincent HospitalComment on above: Performed By: #### [id number] ####[facility] ([facility])[address] [place] [place] [address]Pssbsbzsp/100 WBC (Bld)0.9 %Normal0.0-1.0UnSt. Vincent HospitalComment on above:Performed By: #### [id number] ####[facility] ([facility])[address] [place], [place] [address]Rhwiurzyjks (Bld) [#/Vol]0.21 10*3/uL Normal0.00-0.50UnSt. Vincent HospitalComment on above:Performed By: #### [id number] ####[facility] ([facility])[address] [place] [address] Eosinophils/100 WBC (Bld)3.0 %Normal0.0-6.0UnSt. Vincent Hospital Comment on above:Performed By: #### [id number] ####[facility] ([facility])[address] [place], [place] [address]Bqkbcvkozaz distribution width (RBC) [Ratio]16.7 % High11.5-15.0UnSt. Vincent HospitalComment on above:Performed By: #### [id number] ####[facility] ([facility])[address] [place] [address] ERYTHROCYTE MEAN CORPUSCULAR HEMOGLOBIN CONCENTRATION (G/DL) BY GDJBCLDZI22.9 g/dLLow32.0-35.0UnSt. Vincent HospitalComment on above:Performed By: #### [id number] ####[facility] ([facility])[address] [place], [place] [address]Hiadkovvoq (Bld) [Volume fraction]44.5 %Xpmpeq97.0-55.0UnSt. Vincent HospitalComment on above:Performed By: #### [id number] ####[facility] ([facility])[address] [place], [place] [address]Dohpzkbhih (Bld) [Mass/Vol]13.3 g/dL Wuohpv55.0-17.0UnSt. Vincent HospitalComment on above:Performed By: #### [id number] ####[facility] ([facility])[address] [place] [address] Immature granulocytes (Bld) [#/Vol]0.11 10*3/uLNormal0.00-0.20UnSt. Vincent HospitalComment on above:Performed By: #### [id number] ####[facility] ([facility])[address] [place], [place] [address]Nanjmsqy granulocytes/100 WBC (Bld)1.6 %High0.0-1.0UnSt. Vincent HospitalComment on above: Performed By: #### [id number] ####[facility] ([facility])[address] [place], [place] [address]Eugcrdexeln (Bld) [#/Vol]0.91 10*3/uLLow1.20-4.00UnSt. Vincent HospitalComment on above:Performed By: #### [id number] ####[facility] ([facility])[address] [place], [place] [address]Yzwyofoaajj/100 WBC (Bld) 12.9 %Low20.0-45.0UnSt. Vincent HospitalComment on above:Performed By: #### [id number] ####[facility] ([facility])[address] [place], [place] [address]PCA (RBC) [Entitic mass]26.9 pgLow27.0-33.0UnSt. Vincent HospitalComment on above:Performed By: #### [id number] ####[facility] ([facility])[address] [place], [place] [address]UUH (RBC) [Entitic vol]89.9 fLNormal 82.0-98.0UnSt. Vincent HospitalComment on above:Performed By: #### [id number] ####[facility] ([facility])[address] [place] [address] Monocytes (Bld) [#/Vol]0.65 10*3/uLNormal0.10-1.00UnSt. Vincent HospitalComment on above:Performed By: #### [id number] ####[facility] ([facility])[address] [place], [place] [address]Pajzbcmrl/100 WBC (Bld)9.2 %Normal 5.0-12.0UnSt. Vincent HospitalComment on above:Performed By: #### [id number] ####[facility] ([facility])[address] [place] [address] Neutrophils (Bld) [#/Vol]5.11 10*3/uLNormal1.60-7.60UnSt. Vincent HospitalComment on above:Performed By: #### [id number] ####[facility] ([facility])[address] [place], [place] [address]Mhvkuxrrykd/100 WBC (Bld)72.4 %High 40.0-72.0UnSt. Vincent HospitalComment on above:Performed By: #### [id number] ####[facility] ([facility])[address] [place] [address]QMBQ (PER 100 WBCS) BY AUTOMATED COUNT0.0 %Iviwpl2QunnappsjnSt. Vincent Hospital Comment on above:Performed By: #### [id number] ####[facility] ([facility])[address] [place] [address]SZZJZUTOL (10*3/UL) IN BLOOD AUTOMATED RVTAE989 10*3/xEEuejol693-513QisopeoryeSt. Vincent HospitalComment on above: Performed By: #### [id number] ####[facility] ([facility])[address] [place], [place] [address]ZBC (Bld) [#/Vol]4.95 10*6/uLNormal4.20-5.70UnSt. Vincent HospitalComment on above:Performed By: #### [id number] ####[facility] ([facility])[address] [place] [address]QYD (Bld) [#/Vol]7.05 10*3/uLNormal4.00-10.60UnSt. Vincent HospitalComment on above: Performed By: #### [id number] ####[facility] ([facility])[address] [place], [place] [address]KROXW METABOLIC PANELon 58-89-9387Flvpk gap [Moles/Vol]9 mmol/LNormal7-20UnSt. Vincent HospitalComment on above:Performed By: #### [id number] #### [facility] ([facility]) [address] [place], [place] [address]Vlnracv [Mass/Vol]9.5 mg/dLNormal8.6-10.3UnSt. Vincent HospitalComment on above:Performed By: #### [id number] #### [facility] ([facility]) [address] [place], [place] [address]Xmprpbwf [Moles/Vol]96 mmol/IGgx74-457DldliyjxzxSt. Vincent HospitalComment on above:Performed By: #### [id number] #### [facility] ([facility]) [address] [place] [address]JZ3 [Moles/Vol]34 mmol/VUfkz82-94HxpuajzvxnSt. Vincent HospitalComment on above:Performed By: #### [id number] #### [facility] ([facility]) [address] [place] [address]Ihrbponyoz [Mass/Vol]0.93 mg/dLNormal0.70-1.30UnSt. Vincent HospitalComment on above:Performed By: #### [id number] #### [facility] ([facility]) [address] [place] [address]GWHUYHJTYR FILTRATION RATE ML/MIN/1.73 SQ M.BUUGNBOQL15.0 mL/min/1.73m*2Normal>60.0UnSt. Vincent HospitalComment on above: Result Comment: [facility]???s estimated glomerular filtration rate (eGFR) [...] affect anyone group of individuals.Performed By: #### [id number] #### [facility] ([facility]) [address] [place] [address]Sbbtehf [Mass/Vol]85 mg/rSCmmgnp04-699WfpaxxgdxmSt. Vincent HospitalComment on above:Performed By: #### [id number] #### [facility] ([facility]) [address] [place] [address]Mriktoiok [Moles/Vol]4.0 mmol/LNormal3.5-5.1UnSt. Vincent HospitalComment on above:Performed By: #### [id number] #### [facility] ([facility]) [address] [place] [address]Yapdoo [Moles/Vol]135 mmol/GLdo864-581NffyxjmvdbSt. Vincent HospitalComment on above:Performed By: #### [id number] #### [facility] ([facility]) [address] [place], [place] [address]Lslg nitrogen [Mass/Vol]8 mg/dLNormal7-25UnSt. Vincent HospitalComment on above:Performed By: #### [id number] #### [facility] ([facility]) [address] [place], [place] [address]LNGT NITROGEN/CREATININE (MASS RATIO) IN SER/PLAS8.6Normal [facility] CenterComment on above:Performed By: #### [id number] #### [facility] ([facility]) [address], [place] [address]W-KUEFFDPW PROTEINon 5C REACTIVE PROTEIN (MG/L) IN SER/PLAS11.5 mg/LHigh<=5.0UnSt. Vincent HospitalComment on above: Result Comment: Testing performed using a new methodology, turbidimetry. Normal ranges have been updated. Old normal range was <8 mg/L.Performed By: #### [id number] #### [facility] ([facility]) [address] [place], [place] [address]MVJ WITH AUTO DIFFERENTIALon 17-62-7392Bkafzjgns (Bld) [#/Vol] 0.08 10*3/uLNormal0.00-0.20UnSt. Vincent HospitalComment on above: Performed By: #### [id number] ####[facility] ([facility])[address] [place], [place] [address]Haetdbmuj/100 WBC (Bld)1.1 %High0.0-1.0UnSt. Vincent HospitalComment on above:Performed By: #### [id number] ####[facility] ([facility])[address] [place], [place] [address]Diaqgwoairi (Bld) [#/Vol]0.19 10*3/uL Normal0.00-0.50UnSt. Vincent HospitalComment on above:Performed By: #### [id number] ####[facility] ([facility] [place] [address] Eosinophils/100 WBC (Bld)2.7 %Normal0.0-6.0[facility] Comment on above:Performed By: #### [id number] ####[facility] ([facility])[address] [place], [place] [address]Inrdpckrzdu distribution width (RBC) [Ratio]16.6 % High11.5-15.0UnSt. Vincent HospitalComment on above:Performed By: #### [id number] ####[facility] ([facility])[address] [place] [address] ERYTHROCYTE MEAN CORPUSCULAR HEMOGLOBIN CONCENTRATION (G/DL) BY OXGVTHMWG47.1 g/dLLow32.0-35.0UnSt. Vincent HospitalComment on above:Performed By: #### [id number] ####[facility] ([facility])[address] [place], [place] [address]Lawztrybsu (Bld) [Volume fraction]44.5 %Ujkeom63.0-55.0UnSt. Vincent HospitalComment on above:Performed By: #### [id number] ####[facility] (BEAKER)[address] [place], [place] [address]Hafclfrlrr (Bld) [Mass/Vol]13.4 g/dL Afjdyj28.0-17.0UnSt. Vincent HospitalComment on above:Performed By: #### [id number] ####[facility] ([facility])[address] [place] [address] Immature granulocytes (Bld) [#/Vol]0.10 10*3/uLNormal0.00-0.20UnSt. Vincent HospitalComment on above:Performed By: #### [id number] ####[facility] ([facility]ER)[address] [place], [place] [address]Byoldbda granulocytes/100 WBC (Bld)1.4 %High0.0-1.0UnSt. Vincent HospitalComment on above: Performed By: #### [id number] ####[facility] ([facility])[address] [place], [place] [address]Afqkcugfzkz (Bld) [#/Vol]0.90 10*3/uLLow1.20-4.00UnSt. Vincent HospitalComment on above:Performed By: #### [id number] ####[facility] ([facility])[address] [place], [place] [address]Nlaoazqczix/100 WBC (Bld) 12.8 %Low20.0-45.0UnSt. Vincent HospitalComment on above:Performed By: #### [id number] ####[facility] ([facility])[address] [place], [place] [address]LJY (RBC) [Entitic mass]26.9 pgLow27.0-33.0UnSt. Vincent HospitalComment on above:Performed By: #### [id number] ####[facility] ([facility])[address] [place], [place] [address]XJO (RBC) [Entitic vol]89.4 fLNormal 82.0-98.0UnSt. Vincent HospitalComment on above:Performed By: #### [id number] ####[facility] ([facility])[address] [place] [address] Monocytes (Bld) [#/Vol]0.60 10*3/uLNormal0.10-1.00UnSt. Vincent HospitalComment on above:Performed By: #### [id number] ####[facility] ([facility])[address] [facility] [address]Ynyuvgpxz/100 WBC (Bld)8.5 %Normal 5.0-12.0UnSt. Vincent HospitalComment on above:Performed By: #### [id number] ####[facility] ([facility])[address] [place] [address] Neutrophils (Bld) [#/Vol]5.17 10*3/uLNormal1.60-7.60UnSt. Vincent HospitalComment on above:Performed By: #### [id number] ####[facility] ([facility])[address] [place] [address]Lbrbhqanbag/100 WBC (Bld)73.5 %High 40.0-72.0UnSt. Vincent HospitalComment on above:Performed By: #### [id number] ####[facility] ([facility])[address] [place] [address]NTJS (PER 100 WBCS) BY AUTOMATED COUNT0.0 %Fmesxs9JtfqpypkggSt. Vincent Hospital Comment on above:Performed By: #### [id number] ####[facility] ([facility])[address] [place] [address]CQWMPJGKP (10*3/UL) IN BLOOD AUTOMATED IVMZE369 10*3/vPTxniti768-344ZqlcgugzafSt. Vincent HospitalComment on above: Performed By: #### [id number] ####[facility] ([facility])[address] [place] [address]OKB (Bld) [#/Vol]4.98 10*6/uLNormal4.20-5.70UnSt. Vincent HospitalComment on above:Performed By: #### [id number] ####[facility] ([facility])[address] [place] [address]LLC (Bld) [#/Vol]7.04 10*3/uLNormal4.00-10.60UnSt. Vincent HospitalComment on above: Performed By: #### [id number] ####[facility] ([facility])[address] [place], [place] [address]RGNPHRIOFCOML RATEon 40-08-1591AJCZPECHWPGNL RATE, UHHKIPBZUTA11 mm/hrHigh<20UnSt. Vincent HospitalComment on above: Performed By: #### [id number] #### [facility] ([facility] [address] [place] [address]IOZFFCUASM, PEAKon 88-93-3545YXCITXXEOF (UG/ML) IN SER/PLAS - PEAK23.0 ug/rXGpnamx14.0-50.0UnSt. Vincent HospitalComment on above:Performed By: #### [id number] #### [facility] ([facility]) [address] [place] [address]KHJSRFQEQZ, TROUGHon 21-04-0496XXYSMQPJDZ (UG/ML) IN SER/PLAS - GDJZHG68.2 ug/mLNormal5.0-20.0UnSt. Vincent HospitalComment on above:Performed By: #### [id number] #### [facility] ([facility]) [address] [place] [address] 69-89-047335Hgttu with facility and patient was admitted back here [place] yesterday. They will call back if they need any orders.NormalUnSt. Vincent Hospital BASIC METABOLIC PANELon 68-36-6353Gsfgj gap [Moles/Vol]9 mmol/LNormal7-20 [facility] CenterComment on above:Performed By: #### [id number] ####[facility] ([facility])[address] [place], [place] [address]Yqjysld [Mass/Vol]9.4 mg/dLNormal8.6-10.3UnSt. Vincent HospitalComment on above:Performed By: #### [id number] ####[facility] ([facility])[address] [place], [place] [address]Hxstvinb [Moles/Vol]96 mmol/BAnh15-840WnvdcwbhfwSt. Vincent HospitalComment on above:Performed By: #### [id number] ####[facility] ([facility])[address] [place], [place] [address]AT2 [Moles/Vol]36 mmol/TUzqi73-37 [facility] CenterComment on above:Performed By: #### [id number] ####[facility] ([facility])[address] [place], [place] [address]Epunzyrfpj [Mass/Vol]0.98 mg/dLNormal0.70-1.30UnSt. Vincent HospitalComment on above:Performed By: #### [id number] ####[facility] ([facility])[address] [place] [address]FRXGLBMILM FILTRATION RATE ML/MIN/1.73 SQ M.SRBCVBDJL72.1 mL/min/1.73m*2Normal>60.0UnSt. Vincent HospitalComment on above: Result Comment: [facility]???s estimated glomerular filtration rate (eGFR) [...] anyone group of individuals.Performed By: #### [id number] ####[facility] ([facility])[address] [place] [address]Gsgpemv [Mass/Vol]90 mg/pCOdlzcs98-695SrohnaadhoSt. Vincent HospitalComment on above:Performed By: #### [id number] ####[facility] ([facility])[address] [place] [address]Heceomyia [Moles/Vol]4.0 mmol/LNormal3.5-5.1UnSt. Vincent HospitalComment on above:Performed By: #### [id number] ####[facility] ([facility])[address] [place] [address] Sodium [Moles/Vol]137 mmol/BHhopwl631-865QxoywzgcriSt. Vincent Hospital Comment on above:Performed By: #### [id number] ####[facility] ([facility])[address] [place], [place] [address]Byvc nitrogen [Mass/Vol]7 mg/dLNormal7-25UnSt. Vincent HospitalComment on above:Performed By: #### [id number] ####[facility] ([facility])[address] [place], [place] [address]HCLF NITROGEN/CREATININE (MASS RATIO) IN SER/PLAS7.1NormalUnSt. Vincent HospitalComment on above:Performed By: #### [id number] ####[facility] ([facility])[address] [place] [address]QNCxj 44-01-9064Hltkejszumr distribution width (RBC) [Ratio] 16.2 %High11.5-15.0UnSt. Vincent HospitalComment on above:Performed By: #### [id number] #### [facility] ([facility]) [address] [place] [address]FIIQHSXVADN MEAN CORPUSCULAR HEMOGLOBIN CONCENTRATION (G/DL) BY IDIXSHTPP35.5 g/dLLow32.0-35.0UnSt. Vincent HospitalComment on above:Performed By: #### [id number] #### [facility] ([facility]) [address] [place] [address]Rjzwxwpjoe (Bld) [Volume fraction]42.0 %Hhzfpu05.0-55.0 [facility] CenterComment on above:Performed By: #### [id number] #### [facility] ([facility]) [address] [place] [address]Udvjhsigfi (Bld) [Mass/Vol]12.8 g/dLLow13.0-17.0UnSt. Vincent HospitalComment on above:Performed By: #### [id number] #### [facility] [facility] ([facility]) [address] [place] [address]JOG (RBC) [Entitic mass]26.9 pgLow27.0-33.0UnSt. Vincent HospitalComment on above:Performed By: #### [id number] #### [facility] ([facility]) [address] [place] [address]DQE (RBC) [Entitic vol]88.2 hHUbcotq71.0-98.0UnSt. Vincent HospitalComment on above:Performed By: #### [id number] #### [facility] ([facility]) [address] [place] [address]FILHYKFXQ (10*3/UL) IN BLOOD AUTOMATED [id number] 10*3/uLNormal 150-400UnSt. Vincent HospitalComment on above:Performed By: #### [id number] #### [facility] ([facility]) [address] [place] [address]OUM (Bld) [#/Vol]4.76 10*6/uLNormal4.20-5.70UnSt. Vincent HospitalComment on above:Performed By: #### [id number] #### [facility] ([facility]) [address] [place] [address]CDQ (Bld) [#/Vol]8.22 10*3/uLNormal4.00-10.60UnSt. Vincent HospitalComment on above:Performed By: #### [id number] #### [facility] ([facility]) [address] [facility] [address]NKDRTRMMJoe 65-68-6967Ijlxizcwn [Mass/Vol]2.0 mg/dLNormal1.9-2.7 [facility] CenterComment on above:Performed By: #### [id number] #### [facility] ([facility]) [address] [place], [place] [address]WIHLZ CULTUREon 85-34-5312Nkysdnzg identified Cx Nom (Bld)No growth at 5 daysNormalUniversOhioHealth Southeastern Medical CenterComment on above: Performed By: #### [id number] ####[facility] ([facility])[address], [place] [address]Fxcbm Comment: From a different site than #1.Performed By: #### [id number] #### [facility] ([facility]) [address] [facility] [place], [place] [address]W-RXTYZAJD PROTEINon 10-08-2024 REACTIVE PROTEIN (MG/L) IN SER/PLAS26.6 mg/LHigh<=5.0UnSt. Vincent HospitalComment on above: Result Comment: Testing performed using a new methodology, turbidimetry. Normal ranges have been updated. Old normal range was <8 mg/L.Performed By: #### [id number] ####[facility] ([facility] [place] [address]MWE WITH AUTO DIFFERENTIALon 87-43-4260Szuixkdoa (Bld) [#/Vol]0.06 10*3/uLNormal0.00-0.20 [facility] CenterComment on above:Performed By: #### [id number] #### [facility] ([facility]) [address] [place] [address]Lrfduumvt/100 WBC (Bld)0.8 %Normal0.0-1.0UnSt. Vincent HospitalComment on above:Performed By: #### [id number] #### [facility] ([facility]) [address] [place] [address]Jqgxmxwpwbu (Bld) [#/Vol]0.17 10*3/uLNormal0.00-0.50UnSt. Vincent HospitalComment on above:Performed By: #### [id number] #### [facility] ([facility]) [address] [place], [place] [address]Yfwmmynocok/100 WBC (Bld)2.3 %Normal0.0-6.0UnSt. Vincent HospitalComment on above:Performed By: #### [id number] #### [facility] ([facility]) [address] [place], [place] [address]Aibcxjlfdzc distribution width (RBC) [Ratio]16.0 %High11.5-15.0 [facility] Medical CenterComment on above:Performed By: #### [id number] #### [facility] ([facility]) [address] [place], [place] [address]ICUNGUEYRVE MEAN CORPUSCULAR HEMOGLOBIN CONCENTRATION (G/DL) BY RQBNPTHVR80.3 g/dLLow32.0-35.0UnSt. Vincent HospitalComment on above:Performed By: #### [id number] #### [facility] ([facility]) [address] [place], [place] [address]Supgdogcql (Bld) [Volume fraction]40.9 %Udeseq69.0-55.0 [facility] CenterComment on above:Performed By: #### [id number] #### [facility] ([facility]) [address] [facility] [place], [place] [address]Yineogihej (Bld) [Mass/Vol]12.4 g/dLLow13.0-17.0UnSt. Vincent HospitalComment on above:Performed By: #### [id number] #### [facility] ([facility]) [address] [place], [place] [address]Eexnievd granulocytes (Bld) [#/Vol]0.10 10*3/uLNormal0.00-0.20 [facility] CenterComment on above:Performed By: #### [id number] #### [facility] ([facility]) [address] [facility], [place] [address]Ptuycjsy granulocytes/100 WBC (Bld)1.4 %High0.0-1.0UnSt. Vincent HospitalComment on above:Performed By: #### [id number] #### [facility] ([facility]) [address] [place], [place] [address]Gokfwomlcpp (Bld) [#/Vol]0.73 10*3/uLLow1.20-4.00UnSt. Vincent HospitalComment on above:Performed By: #### [id number] #### [facility] ([facility]) [address] [place], [place] [address]Tqqlptdxwge/100 WBC (Bld)10.0 %Low20.0-45.0UnSt. Vincent HospitalComment on above:Performed By: #### [id number] #### [facility] ([facility]) [address] [place], [place] [address]LPF (RBC) [Entitic mass]26.7 pgLow27.0-33.0UnSt. Vincent HospitalComment on above:Performed By: #### [id number] #### [facility] ([facility]) [address] [facility] [place], [place] [address]ZXK (RBC) [Entitic vol]88.0 jQGlqsbv32.0-98.0UnSt. Vincent HospitalComment on above:Performed By: #### [id number] #### [facility] ([facility]) [address] [place] [address]Awugtmklu (Bld) [#/Vol]0.52 10*3/uLNormal0.10-1.00UnSt. Vincent HospitalComment on above:Performed By: #### [id number] #### [facility] ([facility]) [address] [place] [address]Pqqvmyzcf/100 WBC (Bld)7.1 %Normal5.0-12.0UnSt. Vincent HospitalComment on above:Performed By: #### [id number] #### [facility] ([facility]) [address] [place] [address]Hqoivsfrwud (Bld) [#/Vol]5.73 10*3/uLNormal1.60-7.60UnSt. Vincent HospitalComment on above:Performed By: #### [id number] #### [facility] ([facility]) [address] [place] [address]Hcckafyrboq/100 WBC (Bld)78.4 %High40.0-72.0UnSt. Vincent HospitalComment on above:Performed By: #### [id number] #### [facility] ([facility]) [address] [place] [address]WOUG (PER 100 WBCS) BY AUTOMATED COUNT0.0 %Uvkefx2GbfgwwrcuuSt. Vincent HospitalComment on above:Performed By: #### [id number] #### [facility] ([facility]) [address] [place] [address]ODRAULEHM (10*3/UL) IN BLOOD AUTOMATED HTNEI075 10*3/uLNormal 150-400UnSt. Vincent HospitalComment on above:Performed By: #### [id number] #### [facility] ([facility]) [address] [place] [address]CLO (Bld) [#/Vol]4.65 10*6/uLNormal4.20-5.70UnSt. Vincent HospitalComment on above:Performed By: #### [id number] #### [facility] ([facility]) [address] [place] [address]NPW (Bld) [#/Vol]7.31 10*3/uLNormal4.00-10.60UnSt. Vincent HospitalComment on above:Performed By: #### [id number] #### [facility] ([facility]) [address] [place] [address]QPZGAQCVHFFZQ METABOLIC PANELon 38-70-1922Hjfmycc [Mass/Vol]3.7 g/dLNormal3.5-5.7UnSt. Vincent HospitalComment on above:Performed By: #### [id number] #### [facility] ([facility]) [address] [place] [address]VMW [Catalytic activity/Vol]130 U/UQmgp55-888WemxihdoujSt. Vincent HospitalComment on above:Performed By: #### [id number] #### [facility] ([facility]) [address] [place] [address]QBK [Catalytic activity/Vol]14 U/LNormal7-52UnSt. Vincent HospitalComment on above:Performed By: #### [id number] #### [facility] ([facility]) [address] [place] [address]Fenbx gap [Moles/Vol]9 mmol/LNormal7-20UnSt. Vincent HospitalComment on above:Performed By: #### [id number] #### [facility] ([facility]) [address] [place] [address]IHB [Catalytic activity/Vol]19 U/APbxfun11-56FfxjikzjtuSt. Vincent HospitalComment on above:Performed By: #### [id number] #### [facility] ([facility]) [address] [place] [address]Oxrumzslp [Mass/Vol]0.7 mg/dLNormal0.3-1.0UnSt. Vincent HospitalComment on above:Performed By: #### [id number] #### [facility] ([facility]) [address] [place], [place] [address]Zxaekrq [Mass/Vol]9.5 mg/dLNormal8.6-10.3UnSt. Vincent HospitalComment on above:Performed By: #### [id number] #### [facility] ([facility]) [address], [place] [address]Nfifefck [Moles/Vol]99 mmol/IPfslsk28-334TkhgdetdvaSt. Vincent HospitalComment on above:Performed By: #### [id number] #### [facility] ([facility]) [address] [place], [place] [address]AP0 [Moles/Vol]37 mmol/YCpnu28-90WrlifhefnySt. Vincent HospitalComment on above:Performed By: #### [id number] #### [facility] ([facility]) [address] [place], [place] [address]Liqltlmzca [Mass/Vol]0.96 mg/dLNormal0.70-1.30UnSt. Vincent HospitalComment on above:Performed By: #### [id number] #### [facility] ([facility]) [address] [place], [place] [address]XUWZQBGSPU FILTRATION RATE ML/MIN/1.73 SQ M.MSLKSBJQN70.3 mL/min/1.73m*2Normal>60.0UnSt. Vincent HospitalComment on above: Result Comment: [facility]???s estimated glomerular filtration rate (eGFR) [...] affect anyone group of individuals.Performed By: #### [id number] #### [facility] ([facility]) [address] [place], [place] [address]Hzpbcmw [Mass/Vol]83 mg/nWGnjslm41-022UqbqmgtkgrSt. Vincent HospitalComment on above:Performed By: #### [id number] #### [facility] ([facility]) [address] [place] [address]Rgxrtkzdl [Moles/Vol]4.2 mmol/LNormal3.5-5.1UnSt. Vincent HospitalComment on above:Performed By: #### [id number] #### [facility] ([facility]) [address] [place] [address]Prsdihk [Mass/Vol]7.1 g/dLNormal6.0-8.3UnSt. Vincent HospitalComment on above:Performed By: #### [id number] #### [facility] ([facility]) [address] [place] [address]Tlmsxr [Moles/Vol]141 mmol/FUnkkth819-100BwxxqwxplzSt. Vincent HospitalComment on above:Performed By: #### [id number] #### [facility] ([facility]) [address] [place] [address]Dwyg nitrogen [Mass/Vol]10 mg/dLNormal7-25UnSt. Vincent HospitalComment on above:Performed By: #### [id number] #### [facility] ([facility]) [address] [place] [address]SBGB NITROGEN/CREATININE (MASS RATIO) IN SER/PLAS10.4Normal [facility] CenterComment on above:Performed By: #### [id number] #### [facility] ([facility]) [address] [place] [address]KEVLXMZfl 13-61-4140VOSVCFO Attestation signed by Jose Angel Mai MD [...] mg, 2 mg, intravenous, q4h PRN, Tonya Lenrer NP naloxone (Narcan) injection 0.2 mg, 0.2 [...] (Viagra) 25 mg ta (more content not included)...[facility] CenterEDNURSon 69-28-4541DEJWLGYdpyhxr: transfer from [facility] Complaint: cellulitis to right leg, hx surgery on 09/24 Notes: patient arrived on this day via [facility] from [facility] for pain to the right leg. Previous surgery at [facility] on 09/24 for right leg tib/fib fracture. Per [place] staff, patient arrived with increased pain, redness and swelling to right lower extremity. Ultrasound was negative for DVT. [place] ED treated for cellulitis, administered dose of zosyn at 0330, vancomycin at 2030 and 5mg oxycontin at 1930. Patient endorsed non-compliance, did not have post surgery follow up appointment and has been putting weight on leg. History of hypertension, patient O2 desat to 88% when sleeping. Per [place], patient non-compliant with bipap. Upon arrival, patient endorsed pain 8/10 and nausea. Patient denied chest pain, fever, chills and shortness of breath.NormalUnSt. Vincent Hospital EDPROVon 92-48-9910QNKQZITqujqtcfqfSt. Vincent Hospital [address] [facility] [address] EMERGENCY DEPARTMENT ENCOUNTER CHIEF COMPLAINT Chief Complaint [...] male who was transferred from [facility] for cellulitis involving recent right lower extremity surgery. Patient had surgical pair of a tibia fracture on September 24. The patient states that he went to [place] emergency department today due to increased swelling. Patient was given Zosyn and vancomycin at [facility]. Patient states that he is having [...] No respiratory distress. B (more content not included)...NormalUnSt. Vincent Hospital MAGNESIUMon 31-96-9502Pyfxxmknj [Mass/Vol]1.8 mg/dLLow1.9-2.7UnSt. Vincent HospitalComment on above:Performed By: #### [id number] #### [facility] ([facility]) [address] [place], [place] [address]RIWQCIBPEEIZH RATEon 05-95-4124YNDIUHHFXPWJI RATE, UOLATIGMTOF44 mm/hrHigh<20UnSt. Vincent HospitalComment on above:Performed By: #### [id number] #### [facility] ([facility]) [address] [place] [address]USXLRAL D 25 HYDROXYon 49-81-0178VEWCTYRAH (25 [place] VITAMIN D3) (NG/ML) IN SER/PLAS37.0 ng/jKZptqsz08.0-80.0UnSt. Vincent Hospital Comment on above:Result Comment: >80.0 Toxicity possiblePerformed By: #### [id number] ####[facility] ([facility])[address] [address]il [phone] and is seeing the patient for wound care, PT, and OT. Seeing patient a couple times a week could specify a number of times. States is also doing dressing changes. [phone] [facility] HospitalTelephoneon 10-04-2024 [id number] Matty Garces 1970 M Date Provider Department Center 10/04/2024 [id number] ARCE ORTHO MPORTHO No family history on file Reason for Visit and Comments: Information [Other]NormalUnSt. Vincent Hospital36on Patient in home PT called and wanted to confirm if Dr. Field does the in home therapy approvals/orders or if he had to follow up with his PCP, handbook writer informed her he does. Patient is scheduled for 10/05/24.NormalUnSt. Vincent HospitalBASIC METABOLIC PANELon 80-15-0138Obqrp gap [Moles/Vol]7 mmol/LNormal7-20 [facility] CenterComment on above:Performed By: #### [id number] ####[facility] ([facility])[address] [address]Odojdai [Mass/Vol]9.6 mg/dLNormal8.6-10.3UnSt. Vincent HospitalComment on above:Performed By: #### [id number] ####[facility] ([facility])[address] [address]Ivufubof [Moles/Vol]98 mmol/FZmzewx11-992QpmfbvevhcSt. Vincent HospitalComment on above:Performed By: #### [id number] ####[facility] ([facility])[address] [place] [address]XB3 [Moles/Vol]34 mmol/GNoal05-88 [facility] CenterComment on above:Performed By: #### [id number] ####[facility] ([facility])[address] [place] [address]Engittanrw [Mass/Vol]0.92 mg/dLNormal0.70-1.30UnSt. Vincent HospitalComment on above:Performed By: #### [id number] ####[facility] ([facility])[address] [place] [address]BWQLYFVFWP FILTRATION RATE ML/MIN/1.73 SQ M.FFOYJKUIH22.9 mL/min/1.73m*2Normal>60.0UnSt. Vincent HospitalComment on above: Result Comment: [facility]???s estimated glomerular filtration rate (eGFR) [...] anyone group of individuals.Performed By: #### [id number] ####[facility] ([facility])[address] [place] [address]Rhhmhpq [Mass/Vol]99 mg/bCMmpndj08-325LwnvcmjvefSt. Vincent HospitalComment on above:Performed By: #### [id number] ####[facility] ([facility])[address] [place] [address]Iyczepupb [Moles/Vol]4.3 mmol/LNormal3.5-5.1UnSt. Vincent HospitalComment on above:Performed By: #### [id number] ####[facility] ([facility])[address] [place] [address] Sodium [Moles/Vol]135 mmol/DYka435-051PgdvmcmzusSt. Vincent HospitalComment on above:Performed By: #### [id number] ####[facility] ([facility])[address] [address]Xrrk nitrogen [Mass/Vol]20 mg/dLNormal7-25UnSt. Vincent HospitalComment on above:Performed By: #### [id number] ####[facility] ([facility])[address] [place] [address]FCSU NITROGEN/CREATININE (MASS RATIO) IN SER/PLAS21.7NormalUniversOhioHealth Southeastern Medical CenterComment on above: Performed By: #### [id number] ####[facility] ([facility])[address] [address]ANGoo 36-03-8054Plcemgmxxli distribution width (RBC) [Ratio]15.3 %High 11.5-15.0UnSt. Vincent HospitalComment on above:Performed By: #### [id number] #### [facility] ([facility]) [address] [address]KPLCIFVQNXI MEAN CORPUSCULAR HEMOGLOBIN CONCENTRATION (G/DL) BY SLGJHYUAQ64.9 g/dLLow32.0-35.0UnSt. Vincent HospitalComment on above:Performed By: #### [id number] #### [facility] ([facility]) [address] [place] [address]Adswzwzwaj (Bld) [Volume fraction]44.4 %Xksgqg63.0-55.0 [facility] CenterComment on above:Performed By: #### [id number] #### [facility] ([facility]) [address] [place] [address]Ojxeosiuun (Bld) [Mass/Vol]13.7 g/zZKlcgry57.0-17.0UnSt. Vincent HospitalComment on above:Performed By: #### [id number] #### [facility] ([facility]) [address] [place] [address]IJB (RBC) [Entitic mass]26.5 pgLow27.0-33.0UnSt. Vincent HospitalComment on above:Performed By: #### [id number] #### [facility] ([facility]) [address] [place] [place], [place] [address]YRR (RBC) [Entitic vol]85.9 kNAbaheq62.0-98.0UnSt. Vincent HospitalComment on above:Performed By: #### [id number] #### [facility] ([facility]) [address] [place], [place] [address]KAQYXCJLU (10*3/UL) IN BLOOD AUTOMATED [id number] 10*3/uLNormal 150-400UnSt. Vincent HospitalComment on above:Performed By: #### [id number] #### [facility] ([facility]) [address] [place], [place] [address]ETJ (Bld) [#/Vol]5.17 10*6/uLNormal4.20-5.70UnSt. Vincent HospitalComment on above:Performed By: #### [id number] #### [facility] ([facility]) [address] [facility] [place], [place] [address]WSR (Bld) [#/Vol]10.65 10*3/uLHigh4.00-10.60UnSt. Vincent HospitalComment on above:Performed By: #### [id number] #### [facility] ([facility]) [address] [place], [place] [address]MRWJTADra 96-94-2140YBLRDFEXjpxejr tried CPAP in the past and was [...] Yes, Sleep Time Spent: 20 [facility] CenterDSon 44-77-6088PIQtnrkhoef Admitted 09/23/2024 for Fall, syncope Comminuted right tib/fib fracture CHF HTN Hypomagnesemia Enlarged right hilar node Enlarged prostate Discharge Diagnosis Fall, syncope Comminuted right tib/fib fracture CHF HTN Hypomagnesemia Enlarged right hilar node Enlarged prostate Obstructive sleep apnea Morbid obesity Atrial flutter, new onset Discharge Dis[place] [facility] [place] Discharge Medications Your medication list START [...] Medications These medications were sent to [facility] - [address] [place] [address] [address] [facility] [place] [address], [facility] [address] acetaminophen 500 mg tablet aspirin 81 mg [...] approximately 2 hours fro (more content not included)...NormalOhio State Health SystemPROVon 92-70-6181JSBBFRUbyv report has been cancelled.NormalCommunity Regional Medical CenterLetter (Out)on 06-30-6333Ajkddh (Out)[id number] Matty Garces 1970 M Date Provider Department Center 09/28/2024 [id number], GENERIC PRO*INIT None No family history on fileNormalUniversOhioHealth Southeastern Medical CenterMAGNESIUMon 11-02-5050Qxhsurwqi [Mass/Vol]2.0 mg/dLNormal1.9-2.7UnSt. Vincent HospitalComment on above:Performed By: #### [id number] #### [facility] ([facility]) [address] [place], [place] [address]SYUFRKPBup 41-30-2546KCXZOSPGSI signed AMA paperwork with trama team. Pt left with belongings and family. AMA paperwork in patient chart.NormalCommunity Regional Medical Center PHOSPHORUSon 83-46-1310Yzwnywlmp [Mass/Vol]3.3 mg/dLNormal2.5-5.0UnSt. Vincent HospitalComment on above:Performed By: #### [id number] ####[facility] ([facility])[address] [place], [place] [id number] [phone] patient is Moderately Stable - Low risk of patient condition declining or worsening The patient's goals for the shift include comfort The clinical goals for the shift include VSS, pain control Over the shift, the patient did not make progress toward the following goals. Barriers to progression include unstable VS. Recommendations to address these barriers include continue medications as orderedNormalUniharlingen medical center of [facility]30Daily Case Management Update Multidisciplinary rounds have been completed. Barriers to Discharge: Pending clinical course; POD3 IMN; 4L NC. Patient refusing CPaP at rest/sleep, Pulm brennen consulted and following. PT/OT recommending IPR, PMR consulted and recommend IPR. Patient and spouse would like to go home with [facility]. Referrals sent, pending accepting [facility] agency>>Radha Mendenhall [facility] accepting. DME recommended--wheelchair, rolling walker, bedside commode--scripts written and face to face notes signed.>>need sent to [employer] company for fulfillment. SW following. Diet: Dietary [...] R tib fib facrture Level of Consultation [employer] assumes full responsibility 09/23/24 1231 09/23/24 1221 [...] Answer: Post muscular skeletal surgical procedure 09/24/24 1242NormalUniDel[facility]30The patient is Moderately Stable - Low [...] medicate for pain as ordered maintain safety precautions.NormalUnSt. Vincent Hospital30The patient is Moderately Stable - Low [...] and behaviors that affect risk of falls Jesse fall precautions as indicated by assessment Educate patient/family on patient safety, including physical limitations Instruct patient to call for assistance with activity based on assessment Modify environment to reduce risk of injuryNormalUniversOhioHealth Southeastern Medical CenterBASIC METABOLIC PANELon [id number] gap [Moles/Vol]9 mmol/LNormal7-20 [facility] Medical CenterComment on above:Performed By: #### [id number] #### [facility] HOSPITAL) [address] [place], [place] [address]Yeqjeof [Mass/Vol]9.3 mg/dLNormal8.6-10.3UnSt. Vincent HospitalComment on above:Performed By: #### [id number] #### [facility] ([facility]) [address] [place], [place] [address]Akblshzs [Moles/Vol]99 mmol/OAlkify78-334MtvxabmoniSt. Vincent HospitalComment on above:Performed By: #### [id number] #### [facility] ([facility]) [address] [place], [place] [address]EQ0 [Moles/Vol]33 mmol/HKqhb20-21CutskvsojeSt. Vincent HospitalComment on above:Performed By: #### [id number] #### [facility] ([facility]) [address] [place], [place] [address]Mrvhjoiymd [Mass/Vol]0.89 mg/dLNormal0.70-1.30UnSt. Vincent HospitalComment on above:Performed By: #### [id number] #### [facility] ([facility]) [address] [place], [place] [address]KGVTZBBMXI FILTRATION RATE ML/MIN/1.73 SQ M.MUEPSAZNH734.8 mL/min/1.73m*2Normal>60.0UnSt. Vincent HospitalComment on above: Result Comment: [facility]???s estimated glomerular filtration rate (eGFR) [...] affect anyone group of individuals.Performed By: #### [id number] #### [facility] ([facility]) [address] [place], [place] [address]Aqjmthk [Mass/Vol]95 mg/kHIswgjj28-087PublzxlzqmSt. Vincent HospitalComment on above:Performed By: #### [id number] #### [facility] ([facility]) [address] [place], [place] [address]Lxpiibmcs [Moles/Vol]4.1 mmol/LNormal3.5-5.1UnSt. Vincent HospitalComment on above:Performed By: #### [id number] #### [facility] ([facility]) [address] [place], [place] [address]Muluwd [Moles/Vol]137 mmol/VIjxyjm085-837ZhhwpadknxSt. Vincent HospitalComment on above:Performed By: #### [id number] #### [facility] ([facility]) [address] [place], [place] [address]Qqnd nitrogen [Mass/Vol]17 mg/dLNormal7-25UnSt. Vincent HospitalComment on above:Performed By: #### [id number] #### [facility] ([facility]) [address] [place], [place] [address]GQQO NITROGEN/CREATININE (MASS RATIO) IN SER/PLAS19.1Normal [facility] CenterComment on above:Performed By: #### [id number] #### [facility] ([facility]) [address] [place], [place] [address]DKPbr 87-33-4505Qeymrltiyjz distribution width (RBC) [Ratio]15.4 %High11.5-15.0UnSt. Vincent HospitalComment on above:Performed By: #### [id number] #### [facility] ([facility]) [address] [place] [address]JNYSBEGTBXR MEAN CORPUSCULAR HEMOGLOBIN CONCENTRATION (G/DL) BY VYREUIZSV90.8 g/dLLow32.0-35.0UnSt. Vincent HospitalComment on above:Performed By: #### [id number] #### [facility] ([facility]) [address] [place] [address]Illjbxksng (Bld) [Volume fraction]45.5 %Nzsflf07.0-55.0 [facility] CenterComment on above:Performed By: #### [id number] #### [facility] ([facility]) [address] [place] [address]Flthoyagkj (Bld) [Mass/Vol]14.0 g/hHAqnyga56.0-17.0UnSt. Vincent HospitalComment on above:Performed By: #### [id number] #### [facility] ([facility]) [address] [place] [address]CTV (RBC) [Entitic mass]26.5 pgLow27.0-33.0UnSt. Vincent HospitalComment on above:Performed By: #### [id number] #### [facility] ([facility]) [address] [place] [address]TND (RBC) [Entitic vol]86.0 xAAdnhex53.0-98.0UnSt. Vincent HospitalComment on above:Performed By: #### [id number] #### [facility] ([facility]) [address] [place] [address]IDLDIXJCQ (10*3/UL) IN BLOOD AUTOMATED [id number] 10*3/uLNormal 150-400UnSt. Vincent HospitalComment on above:Performed By: #### [id number] #### [facility] ([facility]) [address] [place] [address]CEB (Bld) [#/Vol]5.29 10*6/uLNormal4.20-5.70UnSt. Vincent HospitalComment on above:Performed By: #### [id number] #### [facility] ([facility]) [address] [place], [place] [address]VTS (Bld) [#/Vol]10.21 10*3/uLNormal4.00-10.60UnSt. Vincent HospitalComment on above:Performed By: #### [id number] #### [facility] ([facility]) [address] [place], [place] [address]XZGXJJMCKfn 59-68-5861Cynkctksu [Mass/Vol]1.9 mg/dLNormal1.9-2.7 [facility] CenterComment on above:Performed By: #### [id number] #### [facility] ([facility]) [address] [facility] [place], [place] [address]XTXNSSRZRMmy 18-62-7721Ipwfpzlbk [Mass/Vol]4.4 mg/dLNormal 2.5-5.0UnSt. Vincent HospitalComment on above:Performed By: #### [id number] #### [facility] ([facility]) [address] [place], [place] [address]VQSMVH BLOOD GAS WITH IONIZED CALCIUMon 31-73-2872Znjq excess Calc (BldV) [Moles/Vol]9.2 mmol/LNormalUnSt. Vincent Hospital Comment on above:Performed By: #### [id number] ####[facility] [id number] [place] [address] USACALCIUM IONIZED (MMOL/L) IN BLOOD1.27 mmol/L Normal1.15-1.33UnSt. Vincent HospitalComment on above:Performed By: #### [id number] ####[facility] [id number] [place] [address] [place] CO2 (BldV) [Partial pressure]50 mm[Hg]Keqixk67-81VekfaoirwbSt. Vincent HospitalComment on above:Performed By: #### [id number] ####[facility] [id number] [place] [address] USAHCO3 (Bld) [Moles/Vol]34.8 mmol/L NormalUnSt. Vincent HospitalComment on above:Performed By: #### [id number] ####[facility] [id number] [place] [address] USAOxygen (BldV) [Partial pressure]53 mm[Hg]Moof07-06JxqetkwbaoSt. Vincent Hospital Comment on above:Performed By: #### [id number] ####[facility] [id number] [place] [address] USAOXYGEN SATURATION (%) IN VENOUS BLOOD87.1 %High 65.0-75.0UnSt. Vincent HospitalComment on above:Performed By: #### [id number] ####[facility] [id number] [place] [address] USAPH OF VENOUS BLOOD7.12Nuda8.31-7.41UnSt. Vincent HospitalComment on above:Performed By: #### [id number] ####[facility] [id number] [place] [address] USABASIC METABOLIC PANELon 94-26-7288Zjlnl gap [Moles/Vol]8 mmol/LNormal7-20UnSt. Vincent HospitalComment on above:Performed By: #### [id number] #### [facility] ([facility]) [address] [place], [place] [address]Gbkcrpk [Mass/Vol]9.4 mg/dLNormal8.6-10.3UnSt. Vincent HospitalComment on above:Performed By: #### [id number] #### [facility] ([facility]) [address] [place], [place] [address]Qvzzmsoh [Moles/Vol]99 mmol/WIkwizi94-106YavrjkmiztSt. Vincent HospitalComment on above:Performed By: #### [id number] #### [facility] ([facility]) [address] [place], [place] [address]PW7 [Moles/Vol]36 mmol/NJsyk65-13ByuasvlqlsSt. Vincent HospitalComment on above:Performed By: #### [id number] #### [facility] ([facility]) [address] [place] [address]Jkqupzshyp [Mass/Vol]0.91 mg/dLNormal0.70-1.30UnSt. Vincent HospitalComment on above:Performed By: #### [id number] #### [facility] ([facility]) [address] [place] [address]JEQPYYRJRY FILTRATION RATE ML/MIN/1.73 SQ M.FZFLASMFY614.2 mL/min/1.73m*2Normal>60.0UnSt. Vincent HospitalComment on above: Result Comment: [facility]???s estimated glomerular filtration rate (eGFR) [...] affect anyone group of individuals.Performed By: #### [id number] #### [facility] ([facility]) [address] [place] [address]Glvbxhn [Mass/Vol]85 mg/oAEpbmzt74-053RilsgrvrbwSt. Vincent HospitalComment on above:Performed By: #### [id number] #### [facility] ([facility]) [address] [place] [address]Xwcbuwsaa [Moles/Vol]3.8 mmol/LNormal3.5-5.1UnSt. Vincent HospitalComment on above:Performed By: #### [id number] #### [facility] ([facility]) [address] [place] [address]Lakpbq [Moles/Vol]139 mmol/BOlgnvq805-829SxnwgzudlaSt. Vincent HospitalComment on above:Performed By: #### [id number] #### [facility] ([facility]) [address] [place] [address]Smcv nitrogen [Mass/Vol]18 mg/dLNormal7-25UnSt. Vincent HospitalComment on above:Performed By: #### [id number] #### [facility] ([facility]) [address] [place] [address]AXWK NITROGEN/CREATININE (MASS RATIO) IN SER/PLAS19.8Normal [facility] CenterComment on above:Performed By: #### [id number] #### [facility] ([facility]) [address] [place] [address]MPOlj 08-92-1492Nfngignteav distribution width (RBC) [Ratio]15.4 %High11.5-15.0UnSt. Vincent HospitalComment on above:Performed By: #### [id number] #### [facility] ([facility]) [address] [place] [address]QGCLSGIARMO MEAN CORPUSCULAR HEMOGLOBIN CONCENTRATION (G/DL) BY YOHIDTISU47.1 g/dLLow32.0-35.0UnSt. Vincent HospitalComment on above:Performed By: #### [id number] #### [facility] ([facility]) [address] [place] [address]Wkhzrejegk (Bld) [Volume fraction]43.8 %Ekfpcd08.0-55.0 [facility] CenterComment on above:Performed By: #### [id number] #### [facility] ([facility]) [address] [place] [address]Jowwhlqmhl (Bld) [Mass/Vol]13.6 g/uKAnecyc64.0-17.0UnSt. Vincent HospitalComment on above:Performed By: #### [id number] #### [facility] ([facility]) [address] [place] [address]LBN (RBC) [Entitic mass]26.3 pgLow27.0-33.0UnSt. Vincent HospitalComment on above:Performed By: #### [id number] #### [facility] ([facility] [address] [place] [address]PLG (RBC) [Entitic vol]84.7 tIQmqgkh05.0-98.0UnSt. Vincent HospitalComment on above:Performed By: #### [id number] #### [facility] ([facility]) [address] [place] [address]ZFCPIHWUR (10*3/UL) IN BLOOD AUTOMATED [id number] 10*3/uLNormal 150-400UnSt. Vincent HospitalComment on above:Performed By: #### [id number] #### [facility] ([facility]) [address] [place] [place], [place] [address]YQK (Bld) [#/Vol]5.17 10*6/uLNormal4.20-5.70UnSt. Vincent HospitalComment on above:Performed By: #### [id number] #### [facility] ([facility]) [address] [place] [address]CSA (Bld) [#/Vol]9.63 10*3/uLNormal4.00-10.60UnSt. Vincent HospitalComment on above:Performed By: #### [id number] #### [facility] ([facility]) [address] [place], [place] [address]UHUJCMPSXex 23-39-0762Kpzrchqvx [Mass/Vol]1.9 mg/dLNormal1.9-2.7 [facility] CenterComment on above:Performed By: #### [id number] #### [facility] ([facility]) [address] [place], [place] [address]URYDCAYWPIfz 36-73-7583Jartvalny [Mass/Vol]2.6 mg/dLNormal 2.5-5.0UnSt. Vincent HospitalComment on above:Performed By: #### [id number] #### [facility] ([facility]) [address] [place] [address]84jg 31-44-513532Tocidco: Pain - Adult Goal: Verbalizes/displays adequate comfort [...] barriers include consult for respiratory therapy.[facility]30Daily Case Management Update Multidisciplinary rounds [...] like to go home with [facility]. Referrals sent, pending accepting [facility] agency. 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 Vincent HospitalComment on above:Performed By: #### [id number] ####[facility] ([facility])[address] [place], [place] [address]Cfrujut [Mass/Vol]8.9 mg/dLNormal 8.6-10.3UnSt. Vincent HospitalComment on above:Performed By: #### [id number] ####[facility] ([facility])[address] [place], [place] [address]Tfcvovrb [Moles/Vol]97 mmol/WDre42-528DdayuajutySt. Vincent HospitalComment on above:Performed By: #### [id number] ####[facility] ([facility])[address] [place], [place] [address]VS9 [Moles/Vol]32 mmol/XVkbl92-51DpagkpjusiSt. Vincent HospitalComment on above:Performed By: #### [id number] ####[facility] ([facility])[address] [place], [place] [address]Lowqggwixm [Mass/Vol]0.91 mg/dLNormal 0.70-1.30UnSt. Vincent HospitalComment on above:Performed By: #### [id number] ####[facility] ([facility])[address] [place], [place] [address]GVQFXOHSAS FILTRATION RATE ML/MIN/1.73 SQ M.DJTQOOMWW239.2 mL/min/1.73m*2Normal>60.0 [facility] CenterComment on above:Result Comment: [facility]???s estimated glomerular filtration rate (eG [...] group of individuals. Performed By: #### [id number] ####[facility] ([facility])[address] [place] [address]Leyvhyb [Mass/Vol]141 mg/nGSmbu49-782TournyolnwSt. Vincent HospitalComment on above:Performed By: #### [id number] ####[facility] ([facility])[address] [place] [address]Islsijmps [Moles/Vol]4.2 mmol/LNormal 3.5-5.1UnSt. Vincent HospitalComment on above:Performed By: #### [id number] ####[facility] ([facility])[address] [place] [address]Cuddmu [Moles/Vol]134 mmol/JQfq101-594LbftlgshwvSt. Vincent HospitalComment on above:Performed By: #### [id number] ####[facility] ([facility])[address] [facility] [place] [address]Ettm nitrogen [Mass/Vol]15 mg/dLNormal7-25UnSt. Vincent HospitalComment on above:Performed By: #### [id number] ####[facility] ([facility])[address] [place], [place] [address]NAVZ NITROGEN/CREATININE (MASS RATIO) IN SER/PLAS16.5NormalUniversOhioHealth Southeastern Medical CenterComment on above: Performed By: #### [id number] ####[facility] ([facility])[address] [place], [place] [address]HBCdw 62-67-5635Hlmcyjfmeqw distribution width (RBC) [Ratio]14.9 % Fqejyh81.5-15.0UnSt. Vincent HospitalComment on above:Performed By: #### [id number] #### [facility] ([facility]) [address] [place], [place] [address]FPAWYKLKEPL MEAN CORPUSCULAR HEMOGLOBIN CONCENTRATION (G/DL) BY AHYGLIYST66.1 g/dLLow32.0-35.0UnSt. Vincent HospitalComment on above:Performed By: #### [id number] #### [facility] ([facility]) [address] [place] [address]Atyvvskqpl (Bld) [Volume fraction]45.4 %Mdsasp95.0-55.0 [facility] CenterComment on above:Performed By: #### [id number] #### [facility] ([facility]) [address] [place] [address]Robnsjypyc (Bld) [Mass/Vol]14.1 g/hEGjjggj79.0-17.0UnSt. Vincent HospitalComment on above:Performed By: #### [id number] #### [facility] ([facility]) [address] [place] [address]YDH (RBC) [Entitic mass]26.3 pgLow27.0-33.0UnSt. Vincent HospitalComment on above:Performed By: #### [id number] #### [facility] ([facility]) [address] [place] [address]UBN (RBC) [Entitic vol]84.5 dMSvfwoh43.0-98.0UnSt. Vincent HospitalComment on above:Performed By: #### [id number] #### [facility] ([facility]) [address] [place] [address]CQJOYLEVA (10*3/UL) IN BLOOD AUTOMATED DHPLQ548 10*3/uLNormal 150-400UnSt. Vincent HospitalComment on above:Performed By: #### [id number] #### [facility] ([facility]) [address] [place] [address]MJH (Bld) [#/Vol]5.37 10*6/uLNormal4.20-5.70UnSt. Vincent HospitalComment on above:Performed By: #### [id number] #### [facility] ([facility]) [address] [place] [address]PKJ (Bld) [#/Vol]14.37 10*3/uLHigh4.00-10.60UnSt. Vincent HospitalComment on above:Performed By: #### [id number] #### [facility] ([facility]) [place] [address]BIWKGMOTDia 74-37-5173Ocvntghuu [Mass/Vol]2.1 mg/dLNormal1.9-2.7 [facility] CenterComment on above:Performed By: #### [id number] ####[facility] ([facility])[address] [place] [address]YDHFHYFYxu 37-57-2043YPFPLAAAWiajcs RN met patient at bedside and provided the Trauma Services Patient Brochure. Patient will follow-up with Orthopedics 10/05/2024 at 0900. No further needs currently.NormalUnSt. Vincent HospitalPHOSPHORUSon 09-25-2024 Magnesium [Mass/Vol]2.8 mg/dLNormal2.5-5.0UnSt. Vincent Hospital Comment on above:Performed By: #### [id number] ####[facility] ([facility])[address] [place] [address]wc [phone] patient is Moderately Stable - Low risk [...] Adult Goal: Free from fall injury Outcome: ProgressingNormalUniversOhioHealth Southeastern Medical CenterBASIC METABOLIC PANELon 19-80-3750Pozrx gap [Moles/Vol]8 mmol/LNormal7-20UnSt. Vincent HospitalComment on above:Performed By: #### [id number] ####[facility] ([facility])[address] [place] [address]Oywwndz [Mass/Vol]9.1 mg/dLNormal 8.6-10.3UnSt. Vincent HospitalComment on above:Performed By: #### [id number] ####[facility] ([facility])[address] [place], [place] [address]Ubcyeesy [Moles/Vol]98 mmol/VCfoekz76-726TuqdnjqyxeSt. Vincent HospitalComment on above:Performed By: #### [id number] ####[facility] ([facility])[address] [place] [address]FZ7 [Moles/Vol]35 mmol/YUpyn46-01KphqvnlrajSt. Vincent HospitalComment on above:Performed By: #### [id number] ####[facility] ([facility])[address] [place], [place] [address]Jzxnsecvhp [Mass/Vol]1.02 mg/dLNormal 0.70-1.30UnSt. Vincent HospitalComment on above:Performed By: #### [id number] ####[facility] ([facility])[address] [place], [place] [address]TMZKZEIJWP FILTRATION RATE ML/MIN/1.73 SQ M.CFAFWHWUA96.3 mL/min/1.73m*2Normal>60.0 [facility] CenterComment on above:Result Comment: [facility]???s estimated glomerular filtration rate (eG [...] group of individuals. Performed By: #### [id number] ####[facility] ([facility])[address] [place], [place] [address]Yqimoph [Mass/Vol]103 mg/wMJzau26-247NchmncdqnqSt. Vincent HospitalComment on above:Performed By: #### [id number] ####[facility] ([facility])[address] [place], [place] [address]Ineushbnl [Moles/Vol]4.2 mmol/LNormal 3.5-5.1UnSt. Vincent HospitalComment on above:Performed By: #### [id number] ####[facility] ([facility])[address] [place] [address]Esqpwu [Moles/Vol]137 mmol/AQehmly085-183ZlrhxelknnSt. Vincent HospitalComment on above:Performed By: #### [id number] ####[facility] ([facility])[address] [place] [address]Ldfy nitrogen [Mass/Vol]11 mg/dLNormal7-25UnSt. Vincent HospitalComment on above:Performed By: #### [id number] ####[facility] ([facility])[address] [place] [address]RIVS NITROGEN/CREATININE (MASS RATIO) IN SER/PLAS10.8NormalUniversOhioHealth Southeastern Medical CenterComment on above: Performed By: #### [id number] ####[facility] ([facility])[address] [place], [place] [address]OZZdy 08-17-7250Tnvqsripafb distribution width (RBC) [Ratio]15.5 %High 11.5-15.0UnSt. Vincent HospitalComment on above:Performed By: #### [id number] #### [facility] ([facility]) [address] [place] [address]RNWHZXPFFQC MEAN CORPUSCULAR HEMOGLOBIN CONCENTRATION (G/DL) BY VTDGZMJWY63.4 g/dLLow32.0-35.0UnSt. Vincent HospitalComment on above:Performed By: #### [id number] #### [facility] ([facility]) [address] [place], [place] [address]Uvwfalxibn (Bld) [Volume fraction]46.4 %Czgbgx17.0-55.0 [facility] CenterComment on above:Performed By: #### [id number] #### [facility] ([facility]) [address] [place], [place] [address]Odxernrire (Bld) [Mass/Vol]14.1 g/pABofhgo71.0-17.0UnSt. Vincent HospitalComment on above:Performed By: #### [id number] #### [facility] ([facility]) [address] [place] [address]ONX (RBC) [Entitic mass]26.4 pgLow27.0-33.0UnSt. Vincent HospitalComment on above:Performed By: #### [id number] #### [facility] ([facility]) [address] [place] [address]CTI (RBC) [Entitic vol]86.7 xUAnynbv92.0-98.0UnSt. Vincent HospitalComment on above:Performed By: #### [id number] #### [facility] ([facility]) [address] [place] [address]UVKFEGBVI (10*3/UL) IN BLOOD AUTOMATED [id number] 10*3/uLNormal 150-400UnSt. Vincent HospitalComment on above:Performed By: #### [id number] #### [facility] ([facility]) [address] [place] [address]RDV (Bld) [#/Vol]5.35 10*6/uLNormal4.20-5.70UnSt. Vincent HospitalComment on above:Performed By: #### [id number] #### [facility] ([facility]) [address] [place] [address]PMQ (Bld) [#/Vol]7.56 10*3/uLNormal4.00-10.60UnSt. Vincent HospitalComment on above:Performed By: #### [id number] #### [facility] ([facility]) [address] [place] [address]RYNPNRIki 98-57-8577DSKGBTEPmauynnu Medicine and Rehabilitation Consult Note Patient not staffed by PM&R today due to surgery today for IMN placement. Our team will staff tomorrow, 09/25/23. Silvia Zaldivar MDNormalUniversity Mercy Health Perrysburg HospitalMAGNESIUMon 77-27-1613Iukfzdouz [Mass/Vol]2.2 mg/dLNormal1.9-2.7UnUK Healthcare Medical CenterComment on above:Performed By: #### [id number] #### [facility] NÉSTOR PRIEST) ALEXX ZHU [address]SYHUTPdy [id number] Attestation signed by Sandrine Field MD at [...] Operative Note Date: 09/23/2024 - 09/24/2024 Location: [facility] Name: Matty Garces, : 1970, Diagnosis [...] by intramedullary implant with interlocking screws [CPT: 06793] Stress exam of right ankle under anesthesia [CPT: 64857] Intraoperative use of fluoroscopy less than 1 hour by physician [CPT: 15971] Surgeons Primary: Sandrine Field MD Resident - [...] mm x 34 mm interlocking screw Staff: Outreach Educator: Emi Francis RN Welding Machine Operator Friction: CHARLINE Montejo Scrub Person: Araseli Butler CST Indications: Matty Garces is an 53 y.o. male who presented as a transfer from [facility] on 09/23/2024. Patient was transferred due to findings of a right distal third tibial shaft fracture after a fall in the shower. The fracture was closed and was subsequently reduced and splinted at [place] in a long-leg splint. Patient made stable [...] of the soft t (more content not included)...NormalUnSt. Vincent Hospital PHOSPHORUSon 15-53-2758Scwbsxpkj [Mass/Vol]4.0 mg/dLNormal2.5-5.0UnSt. Vincent HospitalComment on above:Performed By: #### [id number] #### [facility] (AKER) [address] [place], [place] [address]AJZY GLUCOSE METER UNSOLICITED RESULTSon 57-72-5315Curvcmq [Mass/Vol]100 mg/pYMobvno25-182GwteybbomzSt. Vincent HospitalComment on above:Order Comment: Waived Testing in the ED is performed under the ED CLIA certificate #[id number].Result Comment: iqrlgb1Pjrvbcjfq By: #### [id number] #### [facility] (BEAKER) [address] [place], [place] [address]MTHXuq 25-81-9086QARIAORPW PARTIAL THROMBOPLASTIN TIME IN PPP BY COAGULATION ASSAY31.2 RxchasrZkjxez09.0-35.0UnSt. Vincent Hospital Comment on above:Result Comment: Clinical significance of the APTT is questionable in the presence of heparin.Performed By: #### [id number] ####[facility] ([facility] [place] [address]MJO WITH AUTO DIFFERENTIALon 35-64-9609Yupmkpfpq (Bld) [#/Vol]0.05 10*3/uLNormal0.00-0.20 [facility] CenterComment on above:Performed By: #### [id number] ####[facility] ([facility])[address] [place] [address]Gtspwqbtd/100 WBC (Bld)0.5 %Normal0.0-1.0UnSt. Vincent HospitalComment on above: Performed By: #### [id number] ####[facility] ([facility])[address] [place], [place] [address]Fgufjkmfknj (Bld) [#/Vol]0.11 10*3/uLNormal0.00-0.50 [facility] CenterComment on above:Performed By: #### [id number] ####[facility] ([facility])[address] [place] [address]Ajxkzkfjvah/100 WBC (Bld)1.0 %Normal0.0-6.0UnSt. Vincent HospitalComment on above: Performed By: #### [id number] ####[facility] ([facility])[address] [place], [place] [address]Cngcnlwtlhn distribution width (RBC) [Ratio]15.9 %High 11.5-15.0UnSt. Vincent HospitalComment on above:Performed By: #### [id number] ####[facility] ([facility])[address] [place] [address] ERYTHROCYTE MEAN CORPUSCULAR HEMOGLOBIN CONCENTRATION (G/DL) BY OIDPTBFDF67.3 g/dLLow32.0-35.0UnSt. Vincent HospitalComment on above:Performed By: #### [id number] ####[facility] ([facility])[address] [place], [place] [address]Qwxopnhglc (Bld) [Volume fraction]47.8 %Ezdbvr95.0-55.0UnSt. Vincent HospitalComment on above:Performed By: #### [id number] ####[facility] ([facility])[address] [place], [place] [address]Zkhcigvkyu (Bld) [Mass/Vol]14.5 g/dL Yyiffw26.0-17.0UnSt. Vincent HospitalComment on above:Performed By: #### [id number] ####[facility] ([facility])[address] [place] [address] Immature granulocytes (Bld) [#/Vol]0.10 10*3/uLNormal0.00-0.20UnSt. Vincent HospitalComment on above:Performed By: #### [id number] ####[facility] ([facility])[address] [place], [place] [address]Effchfal granulocytes/100 WBC (Bld)0.9 %Normal0.0-1.0UnSt. Vincent HospitalComment on above: Performed By: #### [id number] ####[facility] ([facility])[address] [place], [place] [address]Hknmpaqrmlq (Bld) [#/Vol]0.74 10*3/uLLow1.20-4.00UnSt. Vincent HospitalComment on above:Performed By: #### [id number] ####[facility] ([facility])[address] [place], [place] [address]Tzwxszdzxis/100 WBC (Bld) 7.0 %Low20.0-45.0UnSt. Vincent HospitalComment on above:Performed By: #### [id number] ####[facility] ([facility])[address] [place], [place] [address]JKQ (RBC) [Entitic mass]26.4 pgLow27.0-33.0UnSt. Vincent HospitalComment on above:Performed By: #### [id number] ####[facility] (BEAKER)[address] [place], [place] [address]NON (RBC) [Entitic vol]87.1 fLNormal 82.0-98.0UnSt. Vincent HospitalComment on above:Performed By: #### [id number] ####[facility] ([facility])[address] [place] [address] Monocytes (Bld) [#/Vol]0.73 10*3/uLNormal0.10-1.00UnSt. Vincent HospitalComment on above:Performed By: #### [id number] ####[facility] ([facility])[address] [place], [place] [address]Xigmizdfv/100 WBC (Bld)6.9 %Normal 5.0-12.0UnSt. Vincent HospitalComment on above:Performed By: #### [id number] ####[facility] ([facility])[address] [place] [address] Neutrophils (Bld) [#/Vol]8.83 10*3/uLHigh1.60-7.60UnSt. Vincent HospitalComment on above:Performed By: #### [id number] ####[facility] ([facility])[address] [facility] [address]Sxbwpbzfszo/100 WBC (Bld)83.7 %High 40.0-72.0UnSt. Vincent HospitalComment on above:Performed By: #### [id number] ####[facility] ([facility])[address] [place], [place] [address]SJFZ (PER 100 WBCS) BY AUTOMATED COUNT0.0 %Ffyeaw4XuzbcdslnhSt. Vincent Hospital Comment on above:Performed By: #### [id number] ####[facility] ([facility])[address] [facility] [address]OCPKFLWMY (10*3/UL) IN BLOOD AUTOMATED MDUSW045 10*3/mRUralrc661-935MjthaiqlimSt. Vincent HospitalComment on above: Performed By: #### [id number] ####[facility] ([facility])[address] [place], [place] [address]WGF (Bld) [#/Vol]5.49 10*6/uLNormal4.20-5.70UnSt. Vincent HospitalComment on above:Performed By: #### [id number] ####[facility] ([facility])[address] [place] [address]IPK (Bld) [#/Vol]10.56 10*3/uLNormal4.00-10.60UnSt. Vincent HospitalComment on above: Performed By: #### [id number] ####[facility] ([facility])[address] [place], [place] [address]QGNAZGYKZCFSG METABOLIC PANELon 02-44-3247Jzlgdfh [Mass/Vol] 3.9 g/dLNormal3.5-5.7UnSt. Vincent HospitalComment on above: Performed By: #### [id number] ####[facility] ([facility])[address] [place], [place] [address]DKW [Catalytic activity/Vol]98 U/CLdpous74-854ZxcnnitqktSt. Vincent HospitalComment on above:Performed By: #### [id number] ####[facility] ([facility])[address] [place], [place] [address]EMS [Catalytic activity/Vol]34 U/L Normal7-52UnSt. Vincent HospitalComment on above:Performed By: #### [id number] ####[facility] ([facility])[address] [place], [place] [address]Rvlpf gap [Moles/Vol]11 mmol/LNormal7-20UnSt. Vincent HospitalComment on above:Performed By: #### [id number] ####[facility] ([facility])[address] [place], [place] [address]KOV [Catalytic activity/Vol]63 U/WTrag50-67EmtfsbwbmeSt. Vincent HospitalComment on above:Performed By: #### [id number] ####[facility] ([facility])[address] [place], [place] [address]Lpqqrlayq [Mass/Vol]0.7 mg/dL Normal0.3-1.0UnSt. Vincent HospitalComment on above:Performed By: #### [id number] ####[facility] (BEAKER)[address] [place] [address] Calcium [Mass/Vol]8.9 mg/dLNormal8.6-10.3UnSt. Vincent Hospital Comment on above:Performed By: #### [id number] ####[facility] (BEAKER)[address] [place], [place] [address]Pismhsgs [Moles/Vol]101 mmol/GPeufps68-896 [facility] CenterComment on above:Performed By: #### [id number] ####[facility] ([facility])[address] [place], [place] [address]QC2 [Moles/Vol] 27 mmol/EZgvmol78-54SjrojdgwxjSt. Vincent HospitalComment on above: Performed By: #### [id number] ####[facility] ([facility])[address] [place], [place] [address]Nwmigluwfk [Mass/Vol]0.96 mg/dLNormal0.70-1.30UnSt. Vincent HospitalComment on above:Performed By: #### [id number] ####[facility] ([facility])[address] [place], [place] [address]QILXRINPHF FILTRATION RATE ML/MIN/1.73 SQ M.DBMNTNNNU97.9 mL/min/1.73m*2Normal>60.0UnSt. Vincent Hospital Comment on above:Result Comment: [facility]???s estimated glomerular filtration rate (eGFR) [...] anyone group of individuals.Performed By: #### [id number] ####[facility] ([facility])[address] [place], [place] [address]Bbqmmrz [Mass/Vol]93 mg/xCElfzgp24-708AnavgatjtoSt. Vincent HospitalComment on above:Performed By: #### [id number] ####[facility] ([facility])[address] [place] [address]Siknxackx [Moles/Vol]4.3 mmol/LNormal3.5-5.1UnSt. Vincent HospitalComment on above:Performed By: #### [id number] ####[facility] ([facility])[address] [place] [address]Szdgzpj [Mass/Vol]7.2 g/dLNormal 6.0-8.3UnSt. Vincent HospitalComment on above:Performed By: #### [id number] ####[facility] ([facility])[address] [place] [address]Nqhyii [Moles/Vol]135 mmol/RObb511-585LbqiuowqjqSt. Vincent HospitalComment on above:Performed By: #### [id number] ####[facility] ([facility])[address] [place] [address]Cwnm nitrogen [Mass/Vol]8 mg/dLNormal7-25UnSt. Vincent HospitalComment on above:Performed By: #### [id number] ####[facility] ([facility])[address] [place] [address]PSUH NITROGEN/CREATININE (MASS RATIO) IN SER/PLAS8.3NormalUniversOhioHealth Southeastern Medical CenterComment on above: Performed By: #### [id number] ####[facility] ([facility])[address] [place] [address]ZCKVMJQju 22-82-9043SQKSXAI Attestation signed by Sandrine Field MD at [...] unenhanced CT brain * Electronically signed: Fahad Frzaier. No MRI results found for the past [...] Alvarez MD Orthopaedic Surgery, Resident Ortho Pager [phone] 09/23/24 6:55 PM May contact the on-call resident with any concerns via the Orthopaedic pager at any time.[facility] CenterCT ABDOMEN PELVIS W IV CONTRASTon [id number] ABDOMEN PELVIS W IV CONTRASTClinical History and [...] advised. * Electronically signed: Fahad Frazier.[facility] CenterCT CERVICAL SPINE WO IV CONTRASTon 96-86-0621ZF CERVICAL SPINE WO IV CONTRASTCT CERVICAL SPINE [...] nor listhesis. Electronically signed: Fahad Frazier.[facility] CenterCT CHEST W IV CONTRASTon 34-42-4287KC CHEST W IV CONTRASTCT CHEST W IV [...] is recommended. 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 Patient arrives with Rt leg splintedNormalUniversUC West Chester HospitalPROVon 35-66-7255FOORKXZyvzlzf of Present Illness Chief Complaint Patient presents with Leg Injury Initial evaluation completed by Dr. Lang. Matty Garces is a 53 y/o male presenting to the ED with c/o leg injury. Pt was transferred from [facility] for right distal tibfib fracture. Pt [...] what they are. History provided by: Patient [place] Coma Scale Score: 15 History Past Medical [...] Procedure Abnormality Status --------- ------ CBC auto differential[[id number]] Abnormal Final result Please view results for these tests on the individual orders. TYPE AND SCREEN ABO G (more content not included)...NormalUnSt. Vincent Hospital ETHANOLon 40-20-1322GZWAORR (MG/DL) IN SER/PLAS<10Normal<10UnSt. Vincent HospitalComment on above:Performed By: #### [id number] #### [facility] (BEAKER) [address] [place], [place] [address]QIPSYDY CALCULATED (%)<0.01NormalUniversOhioHealth Southeastern Medical CenterComment on above:Performed By: #### [id number] #### [facility] (BEAKER) [address] [place], [place] [address]MAup 32-08-7178AZWwizrihsqf of [place] Trauma Surgery Chief Complaint: Trauma Fall Mechanism of Injury: 53 y.o. year old male who was brought in via EMS. He had no C-collar or back board in place. Circumstances of injury: Patient states that he was recently admitted to [place] for cellulitis to the [facility], he was discharged yesterday and this morning was home, he got out of bed to take a shower and had a micro seizure and heard his right ankle snap. Denies hitting head or LOC but admits that he doesn't remember the whole event. He went back to [place] ED where a right tib/fib fracture was found and patient was transferred [facility] Of note patient is on anticoagulant/antiplatelets. Baby aspirin, however he was receiving Shots to prevent blood clots while inpatient at [place] Review of Systems: General: No For Chills, [...] GCS 15 Neck: Cervica (more content not included)...NormalCommunity Regional Medical CenterLACTIC ACID, PLASMAon 07-02-2551CKCTQVG (MMOL/L) IN SER/PLAS0.6 mmol/L Normal0.5-2.2UnSt. Vincent HospitalComment on above:Performed By: #### [id number] #### [facility] ([facility]) [address], [place] [address]NTEOYJWVUiq 41-13-7682Upibgmslr [Mass/Vol]1.8 mg/dLLow1.9-2.7 [facility] Medical CenterComment on above:Performed By: #### [id number] ####[facility] ([facility])[address] [place], [place] [address]RDFQTZOKYKca 67-72-5524Dinvakguq [Mass/Vol]3.5 mg/dLNormal2.5-5.0UnSt. Vincent HospitalComment on above:Performed By: #### [id number] #### [facility] ([facility]) [address] [place], [place] [address]HSTBZIZ-JRYfz 06-93-8474NNV IN PPP BY COAGULATION ASSAY1.28High 0.90-1.10UnSt. Vincent HospitalComment on above:Result Comment: ACCCP RECOMMENDED INR [...] RANGE. CHEST 1995;108:231S-246S.Performed By: #### [id number] #### [facility] ([facility]) [address] [place], [place] [address]JCVZGSZKLDZ TIME (PT) IN PPP BY COAGULATION ASSAY15.9 Seconds High12.3-14.8UnSt. Vincent HospitalComment on above:Performed By: #### [id number] #### [facility] ([facility]) [address] [place], [place] [address]MLVXDRKABH PANEL URINEon 86-16-3936RFHPCWMTRUI+METHAMPHETAMINE SCREEN (PRESENCE) IN URINENegativeNormalNegativeUnSt. Vincent HospitalComment on above:Performed By: #### [id number] #### [facility] ([facility]) [address] [place], [place] [address]IWXBLSOOYDNR PRESENCE IN URINE BY SCREEN METHODNegativeNormal NegativeUnSt. Vincent HospitalComment on above:Performed By: #### [id number] #### [facility] ([facility]) [address] [place] [place], [place] [address]Pxbsymdkypeuccc Ql (U)NegativeNormalNegativeUnSt. Vincent HospitalComment on above:Performed By: #### [id number] #### [facility] ([facility]) [address] [place], [place] [address]BCYUUDEWQUB (PRESENCE) IN URINE BY SCREEN METHODNegativeNormal NegativeUnSt. Vincent HospitalComment on above:Performed By: #### [id number] #### [facility] ([facility]) [address] [place], [place] [address]Rnzkboj Ql (U)NegativeNormalNegativeUnSt. Vincent HospitalComment on above:Performed By: #### [id number] #### [facility] ([facility]) [address] [place] [place], [place] [address]SPTRUPEFY (PRESENCE) IN URINE BY SCREEN METHODNegativeNormal NegativeUnSt. Vincent HospitalComment on above:Performed By: #### [id number] #### [facility] ([facility]) [address] [place], [place] [address]CCELFUT (PRESENCE) IN URINE BY SCREEN METHODPositiveAbnormal NegativeUnSt. Vincent HospitalComment on above:Performed By: #### [id number] #### [facility] ([facility]) [address] [place], [place] [address]NBCJGKWHUKKKT PRESENCE IN URINE BY SCREEN METHODNegativeNormal NegativeUnSt. Vincent HospitalComment on above:Performed By: #### [id number] #### [facility] ([facility]) [address] [place], [place] [address]Xggbxiwgombv Screen Ql (U)NegativeNormalNegativeUnSt. Vincent HospitalComment on above:Performed By: #### [id number] #### [facility] ([facility]) [address] [place], [place] [address]MUUINYOWR ANTIDEPRESSANTS (PRESENCE) IN URINENegativeNormal NegativeCommunity Regional Medical CenterComment on above:Performed By: #### [id number] #### [facility] ([facility]) [address] [place], [place] [address]ELFLMOOW Ion 28-90-9706Yjighwwh I.cardiac [Mass/Vol]0.01 ng/mL Normal0.00-0.04UnSt. Vincent HospitalComment on above:Performed By: #### [id number] #### [facility] ([facility]) [address] [place], [place] [address]WVWW AND SCREENon 44-32-9246WG SCREENNegativeNormalUniDelaware County HospitalComment on above:Performed By: #### [id number] #### [facility] ([facility]) [address] [place], [place] [address]RCU group Nom (Bld)ANormalUniversfostoria city hospital of [facility] Comment on above:Performed By: #### [id number] #### [facility] ([facility]) [address] [place], [place] [address]AC TYPE IN BLOODPositiveNormalUniversfostoria city hospital of [facility] CampusComment on above:Performed By: #### [id number] #### [facility] ([facility]) [address] [place], [place] [address]BLWUFPTPBHgk 15-40-6207DBLGQINUE, TOTAL PRESENCE IN URINE NegativeNormalNegativeCommunity Regional Medical CenterComment on above:Order Comment: Microscopics not performed on urines with negative chemical reactions unless requested on original order.Performed By: #### [id number] ####[facility] ([facility])[address] [place], [place] [address]Byjfzhf (U)ClearNormalClear Community Regional Medical CenterComment on above:Order Comment: Microscopics not performed on urines with negative chemical reactions unless requested on original order.Performed By: #### [id number] ####[facility] ([facility])[address] [place], [place] [address]Wcdaw (U)YellowNormalColorless, Yellow, Light-YellowUnSt. Vincent HospitalComment on above:Order Comment: Microscopics not performed on urines with negative chemical reactions unless requested on original order.Performed By: #### [id number] ####[facility] ([facility])[address] [place], [place] [address]GQPGYSQ (MG/DL) IN URINENormalNormal NormalUnSt. Vincent HospitalComment on above:Order Comment: Microscopics not performed on urines with negative chemical reactions unless requested on original order.Performed By: #### [id number] ####[facility] ([facility])[address], [place] [address]FLLDBLIGDC PRESENCE IN URINENegative NormalNegativeUnSt. Vincent HospitalComment on above:Order Comment: Microscopics not performed on urines with negative chemical reactions unless requested on original order.Performed By: #### [id number] ####[facility] ([facility])[address] [place], [place] [address]Tagzlav Ql (U)NegativeNormalNegative [facility] Regional Medical CenterComment on above:Order Comment: Microscopics not performed on urines with negative chemical reactions unless requested on original order.Performed By: #### [id number] ####[facility] ([facility])[address] [place], [place] [address]YEMZPUELZ ESTERASE PRESENCE IN URINE BY TEST STRIP NegativeNormalNegativeUnSt. Vincent HospitalComment on above:Order Comment: Microscopics not performed on urines with negative chemical reactions unless requested on original order.Performed By: #### [id number] ####[facility] ([facility])[address] [place], [place] [address]TLXDPSP PRESENCE IN URINENegative NormalNegativeCommunity Regional Medical CenterComment on above:Order Comment: Microscopics not performed on urines with negative chemical reactions unless requested on original order.Performed By: #### [id number] ####[facility] ([facility])[address] [place], [place] [address]wW (U)6.0 [pH]Normal5.0-8.0UnSt. Vincent HospitalComment on above:Order Comment: Microscopics not performed on urines with negative chemical reactions unless requested on original order.Performed By: #### [id number] ####[facility] ([facility])[address] [place], [place] [address]Zyfvtxb (U) [Mass/Vol]NegativeNormalNegative [facility] Regional Medical CenterComment on above:Order Comment: Microscopics not performed on urines with negative chemical reactions unless requested on original order.Performed By: #### [id number] ####[facility] ([facility])[address] [place], [place] [address]Tvudvgvr gravity (U) [Rel density]1.050High 1.010-1.030UnSt. Vincent HospitalComment on above:Order Comment: Microscopics not performed on urines with negative chemical reactions unless requested on original order.Performed By: #### [id number] ####[facility] ([facility])[address] [place], [place] [id number] (MG/DL) IN URINENormal NormalNormalUniversOhioHealth Southeastern Medical CenterCombronson [facility] on above:Order Comment: Microscopics not performed on urines with negative chemical reactions unless requested on original order.Performed By: #### [id number] ####[facility] ([facility])[address] [place], [place] [address]KESGUJG D 25 HYDROXYon 09-23-2024 CALCIDIOL (25 [place] VITAMIN D3) (NG/ML) IN SER/PLAS42.6 ng/uCKnhxxi07.0-80.0 [facility] CenterComment on above:Result Comment: >80.0 Toxicity possiblePerformed By: #### [id number] #### [facility] ([place]) [address] [place], [place] [address]Wvvtehjokcr Wound Cultureon [id number] Wound Culture ORGANISM: Methicillin Resis Staph Aureus [...] RESISTANT TO ALL B-LACTAM DRUGS. PERFORMED BY: [place] [address] PATHOLOGIST FUNDRAISER STEVE ANGEL M.D.[facility] Physician GroupComment on above: Performed By: #### CUSUP #### [facility] [address] [place] [address] USACT CSPINE WO CONon [id number] BARIINE WO CONEXAM: CT BARIINE WO CON [...] Electronically authenticated by: ANGEL SAID Date: 2022-12-06 06:37[facility] HospitalCT FACIAL BONES WO CONon [id number] FACIAL BONES WO CONEXAM: CT FACIAL BONES [...] Electronically authenticated by: ANGEL SAID Date: 2022-12-06 06:41NoBethesda North HospitalCT HEAD WO CONon [id number] HEAD WO CONEXAM: CT HEAD WO CON [...] Electronically authenticated by: ANGEL SAID Date: 2022-12-06 06:39[facility] HospitalXR ELBOW RT MIN 3 VIEWSon [id number] ELBOW RT MIN 3 VIEWS Exam: Radiographs: XR ELBOW RT MIN 3 VIEWS Reason for exam: Elbow pain Comparison: None IMPRESSION: Right elbow degenerative changes. Olecranon spur. Remainder of the right elbow is unremarkable. Electronically authenticated by: MICHAEL CASANOVA Date: 2022-12-06 07:22NoBethesda North HospitalXR FOREARM RT 2Von [id number] FOREARM RT 2VExam: Radiographs: XR FOREARM RT 2V Reason for exam: Forearm pain Comparison: None IMPRESSION: Mild degenerative changes in the right elbow and wrist. Right forearm is otherwise unremarkable. Electronically authenticated by: MICHAEL CASANOVA Date: 2022-12-06 08:07NoBethesda North HospitalPSA, FREE AND TOTAL RATIOon 12-03-2022% Free PSA9.0 %NormalThe [facility] HospitalComment on above:Result Comment: The table below [...] population of men.Performed By: #### PSAFREE #### [facility] [address] [place] [address] Dr. [facility]aeGrand [facility] specific Ag [Mass/Vol]5.9 ng/mLCritically high0.0-4.0The [facility] HospitalComment on above:Result Comment: Francheska ECLIA methodology. . According to the [place] [employer], Serum PSA should decrease and [...] of malignant disease.Performed By: #### PSAFREE #### [facility] [address] [place] [address] Dr. Shabnam RaePSA, Free0.53 ng/mLNormalN/AThe [facility] HospitalComment on above:Result Comment: Francheska ECLIA methodology.Performed By: #### PSAFREE #### [facility] [address] [place] [address] Dr. Shabnam RaeINSULINon 22-19-9243Utzizbg74.2 uIU/mLNormal2.6-24.9The [facility] HospitalComment on above:Performed By: #### PSASC #### [facility] [address] [place] [address] Dr. Shabnam RaeTESTOSTERONE, TOTALon 97-28-6025Ubdxkluivuth [Mass/Vol]256 ng/dL Critically phd012-426Uth [facility] HospitalComment on above:Result Comment: Adult male reference interval is based on a population of healthy nonobese males (BMI <30) between 19 and 39 years old. Dima et.al. JCEM 2017,102;7514-1289. PMID: [id number].Performed By: #### PSASC #### [facility] [address] [place] [address] Dr. Shabnam Dunham AUTO DIFFon 23-23-0442ZOVI #0.1 103/ulNormal0.0-0.1[facility] Rutan HospitalComment on above:Performed By: #### PSASC #### [facility] [address] [place] [address] Dr. Shabnam RaeBasophils/100 WBC (Bld)1.0 %Normal0.2-2.0The [facility] Comment on above:Performed By: #### PSASC #### [facility] [address] [place] [address] Dr. Shabnam Rivera #0.1 103/ulNormal0.0-0.7The [facility] HospitalComment on above: Performed By: #### PSASC #### [facility] [address] [place] [address] Dr. Shabnam Samosinophils/100 WBC (Bld)1.8 %Normal0.9-7.0[facility] Comment on above:Performed By: #### PSASC #### [facility] [address] [place] [address] Dr. Shabnam Samrythrocyte distribution width (RBC) [Ratio]14.8 %Kuzrrm19.0-15.0 The [facility] HospitalComment on above:Performed By: #### PSASC #### [facility] [address] [place] [address] Dr. Shabnam RaeHematocrit (Bld) [Volume fraction]49.9 %Ibjjwr79.0-54.0The [facility] HospitalComment on above:Performed By: #### PSASC #### [facility] [address] [place] [address] Dr. Shabnam RaeHemoglobin (Bld) [Mass/Vol]16.0 g/lLMfifgr31.0-18.0The [facility] HospitalComment on above:Performed By: #### PSASC #### [facility] [address] [place] [address] Dr. Shabnam Hayward #0.04 10e3/ulCritically high0.00-0.03[facility] Comment on above:Performed By: #### PSASC #### [facility] [address] [place] [address] Dr. Shabnam Hayward %0.6 %Critically high0.0-0.5ThPaulding County HospitalComment on above:Performed By: #### PSASC #### [facility] [address] [place] [address] Dr. Shabnam PandyaH #1.0 103/ulCritically low1.2-3.8The [facility] Comment on above:Performed By: #### PSASC #### [facility] [address] [place] [address] Dr. Shabnam Diazmphocytes/100 WBC (Bld)16.2 %Critically low20.5-60.0The [facility] HospitalComment on above:Performed By: #### PSASC #### [facility] [address] [place] [address] Dr. Shabnam Daniel DIFF REQNONormalThe [facility] HospitalComment on above: Performed By: #### PSASC #### [facility] [address] [place] [address] Dr. Shabnam Nava (RBC) [Entitic mass]27.7 rsOpwawy19.9-34.0The [facility] HospitalComment on above:Performed By: #### PSASC #### [facility] [address] [place] [address] Dr. Shabnam Nava (RBC) [Mass/Vol]32.1 g/sHNbihkh78.9-35.2The [facility] HospitalComment on above:Performed By: #### PSASC #### [facility] [address] [place] [address] Dr. Shabnam Nava (RBC) [Entitic vol]86.3 uXVdsvhk85.0-94.0The [facility] HospitalComment on above:Performed By: #### PSASC #### [facility] [address] [place] [address] Dr. Shabnam Mcfarland #0.5 103/ulNormal0.3-0.8The [facility] HospitalComment on above:Performed By: #### PSASC #### [facility] [address] [place] [address] Dr. Shabnam Brunnerocytes/100 WBC (Bld)7.6 %Normal1.7-12.0[facility] Comment on above:Performed By: #### PSASC #### [facility] [address] [place] [address] Dr. Shabnam Medrano #4.6 103/ulNormal1.4-6.5The [facility] HospitalComment on above:Performed By: #### PSASC #### [facility] [address] [place] [address] Dr. Shabnam Larautrophils/100 WBC (Bld)72.8 %Ukamwd63.0-75.0The [facility] HospitalComment on above:Performed By: #### PSASC #### [facility] [address] [address] [address] Shabnam Miranda mean volume (Bld) [Entitic vol]9.8 fLNormal9.5-13.5The [facility] HospitalComment on above:Performed By: #### PSASC #### [facility] [address] [address] [address] Shabnam RaePLT203 103/pmIcnmri073-355Lwx [facility] HospitalComment on above: Performed By: #### PSASC #### [facility] [address] [place] [address] Dr. Shabnam RaeRBC5.78 106/ulNormal4.70-6.10The [facility] HospitalComment on above:Performed By: #### PSASC #### [facility] [address] [place] [address] Dr. Shabnam RaeWBC6.3 103/ulNormal4.0-11.0The [facility] HospitalComment on above: Performed By: #### PSASC #### [facility] [address] [place] [address] Dr. Shabnam RaeFRPRISCILLA THYROXINE INDEX T7on 39-70-6321JRO6.51Tgasfg3.30-4.50The [facility] HospitalComment on above:Performed By: #### TSH, CMP, LIPID, T7, URIC #### [facility] [address] [address] [address] Shabnam RaeT3U33.0 %Adhhuk35.0-40.0The [facility] HospitalComment on above: Performed By: #### TSH, CMP, LIPID, T7, URIC #### [facility] [address] [address] [address] Shabnam RaeT4 [Mass/Vol]6.20 ug/dLNormal4.50-12.10The [facility] Comment on above:Performed By: #### TSH, CMP, LIPID, T7, URIC #### [facility] [address] [address] [address] Shabnam RaeGLYCOHEMOGLOBIN A1Con 67-13-5853KCH RECOMMENDATIONSEE BELOWNormal The [facility] HospitalComment on above:Result Comment: ADA RECOMMENDED LIMIT 4.0 - 6.0 ADA THERAPEUTIC TARGET < 7.0 ACTION SUGGESTED > 7.0Performed By: #### PSASC #### [facility] [address] [place] [address] Dr. Shabnam RaeGlucose [Mass/Vol]114 mg/dLNoBethesda North HospitalComment on above:Performed By: #### PSASC #### [facility] [address] [place] [address] Dr. Shabnam RaeHbA1c (Bld) [Mass fraction]5.6 %Normal4.5-6.2The [facility] HospitalComment on above:Performed By: #### PSASC #### [facility] [address] [place] [address] Dr. Shabnam RaeLIPID PROFILEon 55-16-8640BDWB-HDL RATIO NORMSEE [facility] Community HospitalComment on above:Result Comment: 3.3 - 4.4 LOW RISK 4.4 - 7.1 AVERAGE RISK 7.1 - 11.0 MODERATE RISK >11.0 HIGH RISKPerformed By: #### TSH, CMP, LIPID, T7, URIC #### [facility] [address] [place] [address] Dr. Shabnam Mckeonesterol [Mass/Vol]176 mg/dLNormal<=200The [facility] Comment on above:Performed By: #### TSH, CMP, LIPID, T7, URIC #### [facility] [address] [address] [address] Shabnam RaeCholesterol in HDL [Mass/Vol]48 mg/vQMeemui70-44Lzw [facility] HospitalComment on above:Performed By: #### TSH, CMP, LIPID, T7, URIC #### [facility] [address] [place] [address] Dr. Shabnam Mckeonesterol in LDL [Mass/Vol]108.2 mg/dLNoBethesda North HospitalComment on above:Performed By: #### TSH, CMP, LIPID, T7, URIC #### [facility] [address] [address] [address] Shabnam RaeCholesterol.total/Cholesterol in HDL [Mass ratio]3.7 {ratio} NormalThe [facility] HospitalComment on above:Performed By: #### TSH, CMP, LIPID, T7, URIC #### [facility] [address] [address] [address] Shabnam Hanley NORMAL> or = 60 mg/dl - LOW CARDIOVASCULAR RISK <40 mg/dl - HIGH CARDIOVASCULAR RISKCleveland Clinic Lutheran HospitalComment on above:Performed By: #### TSH, CMP, LIPID, T7, URIC #### [facility] [address] [address] [address] Shabnam RaeLDL CALC NORMALSEE BELOWCleveland Clinic Lutheran HospitalComment on above:Result Comment: <100 mg/dl OPTIMAL 100 - 129 mg/dl NEAR OR ABOVE OPTIMAL 130 - 159 mg/dl BORDERLINE HIGH 160 - 189 mg/dl HIGH >190 mg/dl VERY HIGH Performed By: #### TSH, CMP, LIPID, T7, URIC #### [facility] [address] [address] [address] Shabnam RaeTriglyceride [Mass/Vol]99 mg/dLNormal<=150The [facility] Comment on above:Performed By: #### TSH, CMP, LIPID, T7, URIC #### [facility] [address] [address] [address] Shabnam RaeVLDL CALC19.8 mg/dLNoBethesda North HospitalComment on above: Performed By: #### TSH, CMP, LIPID, T7, URIC #### [facility] [address] [address] [address] Shabnam RaePROF 14(COMP METB)on 94-85-2425Smayyfu [Mass/Vol]4.1 g/dLNormal 3.4-5.0The [facility] Health Systemment on above:Performed By: #### TSH, CMP, LIPID, T7, URIC #### [facility] [address] [address] [address] Shabnam RaeAlbumin/Globulin [Mass ratio]1.1 {ratio}NormalThe [facility] HospitalComment on above:Performed By: #### TSH, CMP, LIPID, T7, URIC #### [facility] [address] [place] [address] Dr. Shabnam Rizzo [Catalytic activity/Vol]101 U/CBfcsvh67-079Tmy [facility] HospitalComment on above:Performed By: #### TSH, CMP, LIPID, T7, URIC #### [facility] [address] [place] [address] Dr. Shabnam Sofia [Catalytic activity/Vol]26 U/WNxbolp88-68Tro [facility] HospitalComment on above:Performed By: #### TSH, CMP, LIPID, T7, URIC #### [facility] [address] [place] [address] Dr. Shabnam Johnsonon gap [Moles/Vol]10.1 mmol/LNormalThe [facility] Comment on above:Performed By: #### TSH, CMP, LIPID, T7, URIC #### [facility] [address] [place] [address] Dr. Shabnam Jean [Catalytic activity/Vol]19 U/VSaqbjt85-51Mil [facility] HospitalComment on above:Performed By: #### TSH, CMP, LIPID, T7, URIC #### [facility] [address] [place] [address] Dr. Shabnam RaeBilirubin [Mass/Vol]0.8 mg/dLNormal0.2-1.0[facility] Comment on above:Performed By: #### TSH, CMP, LIPID, T7, URIC #### [facility] [address] [place] [address] Dr. Shabnam RaeCalcium [Mass/Vol]9.5 mg/dLNormal8.5-10.1[facility] Comment on above:Performed By: #### TSH, CMP, LIPID, T7, URIC #### [facility] [address] [place] [address] Dr. Shabnam RaeChloride [Moles/Vol]102 mmol/TGlrszb14-532Tvn [facility] Comment on above:Performed By: #### TSH, CMP, LIPID, T7, URIC #### [facility] [address] [place] [address] Dr. Shabnam RaeCO2 [Moles/Vol]32.4 mmol/LCritically high21.0-32.0The [facility] HospitalComment on above:Performed By: #### TSH, CMP, LIPID, T7, URIC #### [facility] [address] [place] [address] Dr. Shabnam RaeCreatinine [Mass/Vol]1.00 mg/dLNormal0.70-1.30The [facility] HospitalComment on above:Performed By: #### TSH, CMP, LIPID, T7, URIC #### [facility] [address] [place] [address] Dr. Shabnam SamGFR-AF DOMINICAN>60Normal>=60The [facility] HospitalComment on above:Performed By: #### TSH, CMP, LIPID, T7, URIC #### [facility] [address] [place] [address] Dr. Shabnam SamGFR-NON AF DOMINICAN>60Normal>=60The [facility] HospitalComment on above:Performed By: #### TSH, CMP, LIPID, T7, URIC #### [facility] [address] [place] [address] Dr. Shabnam RaeGlobulin (S) [Mass/Vol]3.8 g/dLNormalThe [facility] HospitalComment on above:Performed By: #### TSH, CMP, LIPID, T7, URIC #### [facility] [address] [place] [address] Dr. Shabnam RaeGlucose [Mass/Vol]94 mg/nZPlqlxb79-408EiuMary [facility] Hospital Comment on above:Performed By: #### TSH, CMP, LIPID, T7, URIC #### [facility] [address] [place] [address] Dr. Shabnam RaePotassium [Moles/Vol]3.5 mmol/LNormal3.5-5.1The [facility] Comment on above:Performed By: #### TSH, CMP, LIPID, T7, URIC #### [facility] [address] [place] [address] Dr. Shabnam RaeProtein [Mass/Vol]7.9 g/dLNormal6.4-8.2The [facility] Comment on above:Performed By: #### TSH, CMP, LIPID, T7, URIC #### [facility] [address] [place] [address] Dr. Shabnam RaeSodium [Moles/Vol]141 mmol/LBtrsol465-422Sqj [facility] Comment on above:Performed By: #### TSH, CMP, LIPID, T7, URIC #### [facility] [address] [place] [address] Dr. Shabnam RaeUrea nitrogen [Mass/Vol]15.0 mg/dLNormal7.0-18.0The [facility] HospitalComment on above:Performed By: #### TSH, CMP, LIPID, T7, URIC #### [facility] [address] [place] [address] Dr. Shabnam RaeUrea nitrogen/Creatinine [Mass ratio]15.0 mg/mgNormalThe [facility] HospitalComment on above:Performed By: #### TSH, CMP, LIPID, T7, URIC #### [facility] [address] [place] [address] Dr. Shabnam GoldbergHomeaghan 87-92-9120SPM3.504 uIU/mLNormal0.358-3.740The [facility] HospitalComment on above:Performed By: #### TSH, CMP, LIPID, T7, URIC #### [facility] [address] [place] [address] Dr. Shabnam RaeURIC ACID SERUMon 75-63-8316Sxizz [Mass/Vol]6.9 mg/dLNormal 3.5-7.2The [facility] HospitalComment on above:Performed By: #### TSH, CMP, LIPID, T7, URIC #### [facility] [address] [place] [address] Dr. Shabnam RaeTESTOSTERONE, TOTALon 69-10-3737Omiwwsdggiry [Mass/Vol]244 ng/dL Critically fxl482-540Uvk [facility] HospitalComment on above:Result Comment: Adult male reference interval is based on a population of healthy nonobese males (BMI <30) between 19 and 39 years old. Dima, et.al. [facility] 2017,102;1516-7075. PMID: [id number].Performed By: #### PSAFREE #### [facility] [address] [place] [address] Dr. Shabnam RaeTESTOSTERONE, FREE,DIRECT, TOTALon 10-70-7395Utwl Testosterone(Direct)2.1 pg/mLCritically low7.2-24.0[facility] HospitalComment on above:Result Comment: Performed at: BNPerformed By: #### CVDTBH #### [facility] [address] [place] [address] Dr. Shabnam RaeTestosterone [Mass/Vol]252 ng/dLCritically ctk273-347Vwq [facility] HospitalComment on above:Result Comment: Adult male reference interval is based on a population of healthy nonobese males (BMI <30) between 19 and 39 years old. Travbrad, et.al. [facility] 2017,102;8648-9972. PMID: [id number]. Performed at: CBPerformed By: #### CVDTBH #### [facility] [address] [place] [address] Dr. Shabnam Ashford 60-43-3636Syljk [id number]#1.00CD:127[facility] Hospitalcreenson 86-64-9425Gqnpgoz [id number]#1.00CD:127NoKettering Health Washington [id number]#1.00CD:127[facility] HospitalUrology Office/Clinic Noteon 94-23-8144Hxrjpjf Office/Clinic NoteChief Complaint referred Hydrocele HPI Staff [...] Ongoing No qualifying data (more content not included)...[facility] HospitalComment on above:Result Comment: Electronically Signed By: Viola Grullon MD\.br\Date and Time Signed: 02/26/22 00:20EDT\.br\Electronically Co-Signed By: Helen Leung\.br\Date and Time Co-Signed: 02/25/22 11:16 EDTAmbulatory Visit Summaryon 02-50-0833Uqnecqaqtg Visit Summary MATTY GARCES :1970 Visit Date:02/25/2022 Ambulatory Visit Instructions Your Diagnosis Hydrocele Varicocele BPH without urinary obstruction Tests Performed Urnls Dip Stick Auto w/o Microscopy POC 55093 Your Care Team Attending Physician - Viola [...] Urnls Dip Stick Auto w/o Microscopy POC 48264 (02/25/2022) Bilirubin Urine Dipstick - Negative Blood Urine Dipstick - Negative Glucose Urine Dipstick - Negative Ketones Urine Dipstick - Negative Leukocytes Urine Dipstick - Negative Nitrite Urine Dipstick - Negative Protein Urine Dipstick - Negative Specific [place] Urine Dipstick - >=1.030 Urine Appearance Urine [...] the hydrocele for any changes. ? Take lkyj-hch-ghnbliq and prescription medicines only as told by [...] is not intended t (more content not included)...[facility] Educationon 43-16-3510Ubeoozw EducationUrology Hydrocele, Adult A hydrocele is a [...] the hydrocele for any changes. ? Take tilw-bzn-psrezvi and prescription medicines only as told by [...] Reviewed: 09/10/2018 Elsevier Patient Education ? 2019 [employer].[facility] ED Note-Physicianon 89-89-8240JA Note-Physician [id number]#1.00CD:[address] [place], [place] [address]RAD - Ultrasound Reporton 88-86-2594GNT - Ultrasound Report [id number]#1.00CD:[address] [place], [place] [address]RAD - CT Reporton 86-69-6573SQE - CT Report [id number]#1.00CD:[address] [place], [place] [address]RAD - CT [id number]#1.00CD:[address] [place], [place] [address]CBC AUTO DIFFon 89-22-2070XHRI #0.0 103/ulNormal 0.0-0.1The [facility] HospitalComment on above:Performed By: #### PSAFRPRISCILLA #### [facility] [address] [address] [address] Shabnam Benavidezphils/100 WBC (Bld)0.6 %Normal0.2-2.0The [facility] Comment on above:Performed By: #### PSAFREE #### [facility] [address] [address] [address] Shabnam Rivera #0.1 103/ulNormal0.0-0.7The [facility] HospitalComment on above: Performed By: #### PSAFREE #### [facility] [address] [place] [address] Dr. Shabnam Samosinophils/100 WBC (Bld)2.1 %Normal0.9-7.0The [facility] Comment on above:Performed By: #### PSAFREE #### [facility] [address] [place] [address] Dr. Shabnam Samrythrocyte distribution width (RBC) [Ratio]13.1 %Ngukny31.0-15.0 The [facility] HospitalComment on above:Performed By: #### PSAFREE #### [facility] [address] [place] [address] Dr. Shabnam RaeHematocrit (Bld) [Volume fraction]43.1 %Qfepdj53.0-54.0The [facility] HospitalComment on above:Performed By: #### PSAFREE #### [facility] [address] [place] [address] Dr. Shabnam RaeHemoglobin (Bld) [Mass/Vol]13.7 g/dLCritically low14.0-18.0The [facility] HospitalComment on above:Performed By: #### PSAFREE #### [facility] [address] [place] [address] Dr. Shabnam Hayward #0.04 10e3/ulCritically high0.00-0.03The [facility] Comment on above:Performed By: #### PSAFREE #### [facility] [address] [place] [address] Dr. Shabnam Hayward %0.6 %Critically high0.0-0.5The [facility] HospitalComment on above:Performed By: #### PSAFREE #### [facility] [address] [place] [address] Dr. Shabnam Gomez #0.9 103/ulCritically low1.2-3.8The [facility] Comment on above:Performed By: #### PSAFREE #### [facility] [address] [place] [address] Dr. Shabnam Diazmphocytes/100 WBC (Bld)13.1 %Critically low20.5-60.0The [facility] HospitalComment on above:Performed By: #### PSAFREE #### [facility] [address] [place] [address] Dr. Shabnam Daniel DIFF REQNONormalThe [facility] HospitalComment on above: Performed By: #### PSAFREE #### [facility] [address] [place] [address] Dr. Shabnam Nava (RBC) [Entitic mass]29.5 fhJnajnj37.9-34.0The [facility] HospitalComment on above:Performed By: #### PSAFREE #### [facility] [address] [place] [address] Dr. Shabnam Nava (RBC) [Mass/Vol]31.8 g/eLDwapba85.9-35.2The [facility] HospitalComment on above:Performed By: #### PSAFREE #### [facility] [address] [place] [address] Dr. Shabnam Nava (RBC) [Entitic vol]92.9 kPGmtakn49.0-94.0[facility] HospitalComment on above:Performed By: #### PSAFREE #### [facility] [address] [place] [address] Dr. Shabnam Mcfarland #0.4 103/ulNormal0.3-0.8The [facility] HospitalComment on above:Performed By: #### PSAFREE #### [facility] [address] [place] [address] Dr. Shabnam Brunnerocytes/100 WBC (Bld)5.4 %Normal1.7-12.0[facility] Comment on above:Performed By: #### PSAFREE #### [facility] [address] [place] [address] Dr. Shabnam Medrano #5.2 103/ulNormal1.4-6.5The [facility] HospitalComment on above:Performed By: #### PSAFREE #### [facility] [address] [place] [address] Dr. Shabnam Larautrophils/100 WBC (Bld)78.2 %Critically high43.0-75.0The [facility] HospitalComment on above:Performed By: #### PSAFREE #### [facility] [address] [place] [address] Dr. Shabnam Miranda mean volume (Bld) [Entitic vol]10.9 fLNormal9.5-13.5The [facility] HospitalComment on above:Performed By: #### PSAFREE #### [facility] [address] [place] [address] Dr. Shabnam RaePLT153 103/woUzqkkw704-828Hkt [facility] HospitalComment on above: Performed By: #### PSAFREE #### [facility] [address] [place] [address] Dr. Shabnam RaeRBC4.64 106/ulCritically low4.70-6.10The [facility] HospitalComment on above:Performed By: #### PSAFREE #### [facility] [address] [place] [address] Dr. Shabnam RaeWBC6.6 103/ulNormal4.0-11.0The [facility] HospitalComment on above: Performed By: #### PSAFREE #### [facility] [address] [place] [address] Dr. Shabnam Bang 21-33-0908KTH6.9 mg/dLNormal<=1.0The [facility] Comment on above:Performed By: #### PSAFREE #### [facility] [address] [place] [address] Dr. Shabnam Ortiz 14(COMP METB)on 99-81-6848Ciotmfc [Mass/Vol]3.6 g/dLNormal 3.4-5.0The [facility] HospitalComment on above:Performed By: #### PSAFREE #### [facility] [address] [address] [address] Shabnam RaeAlbumin/Globulin [Mass ratio]1.0 {ratio}NormalThe [facility] HospitalComment on above:Performed By: #### PSAFREE #### [facility] [address] [address] [address] Shabnam JohnstonP [Catalytic activity/Vol]114 U/KJpczau12-574Ixq [facility] HospitalComment on above:Performed By: #### PSAFREE #### [facility] [address] [address] [address] Shabnam Sofia [Catalytic activity/Vol]26 U/AFampxq10-50Yxq [facility] HospitalComment on above:Performed By: #### PSAFREE #### [facility] [address] [address] [address] Shabnam Johnsonon gap [Moles/Vol]9.3 mmol/LNormalThe [facility] HospitalComment on above:Performed By: #### PSAFREE #### [facility] [address] [address] [address] Shabnam RaeAST [Catalytic activity/Vol]19 U/UQoptrb22-53Ues [facility] HospitalComment on above:Performed By: #### PSAFREE #### [facility] [address] [address] [address] Shabnam RaeBilirubin [Mass/Vol]0.5 mg/dLNormal0.2-1.0The [facility] Comment on above:Performed By: #### PSAFREE #### [facility] [address] [address] [address] Shabnam RaeCalcium [Mass/Vol]8.9 mg/dLNormal8.5-10.1The [facility] Comment on above:Performed By: #### PSAFREE #### [facility] [address] [address] [address] Shabnam RaeChloride [Moles/Vol]106 mmol/FEwuuop61-552Eyi [facility] Comment on above:Performed By: #### PSAFREE #### [facility] [address] [address] [address] Shabnam RaeCO2 [Moles/Vol]30.7 mmol/RYqycfw77.0-32.0The [facility] Comment on above:Performed By: #### PSAFREE #### [facility] [address] [address] [address] Shabnam RaeCreatinine [Mass/Vol]1.15 mg/dLNormal0.70-1.30The [facility] HospitalComment on above:Performed By: #### PSAFREE #### [facility] [address] [address] [address] Shabnam SamGFR-AF DOMINICAN>60Normal>=60The [facility] HospitalComment on above:Performed By: #### PSAFREE #### [facility] [address] [address] [address] Shabnam SamGFR-NON AF DOMINICAN>60Normal>=60The [facility] HospitalComment on above:Performed By: #### PSAFREE #### [facility] [address] [address] [address] Shabnam RaeGlobulin (S) [Mass/Vol]3.6 g/dLNormalThe [facility] HospitalComment on above:Performed By: #### PSAFREE #### [facility] [address] [address] [address] Shabnam RaeGlucose [Mass/Vol]117 mg/dLCritically enym47-980Hqt [facility] HospitalComment on above:Performed By: #### PSAFREE #### [facility] [address] [address] [address] Shabnam RaePotassium [Moles/Vol]4.0 mmol/LNormal3.5-5.1The [facility] Comment on above:Performed By: #### PSAFREE #### [facility] [address] [address] [address] Shabnam RaeProtein [Mass/Vol]7.2 g/dLNormal6.1-8.2The [facility] Comment on above:Performed By: #### PSAFREE #### [facility] [address] [address] [address] Shabnam RaeSodium [Moles/Vol]142 mmol/YPgluoi589-125Onj [facility] Comment on above:Performed By: #### PSAFREE #### [facility] [address] [address] [address] Shabnam RaeUrea nitrogen [Mass/Vol]15.0 mg/dLNormal7.0-18.0The [facility] HospitalComment on above:Performed By: #### PSAFREE #### [facility] [address] [address] [address] Shabnam Gu nitrogen/Creatinine [Mass ratio]13.0 mg/mgNormalThe [facility] HospitalComment on above:Performed By: #### PSAFREE #### [facility] [address] [address] [address] Shabnam Floyd SCROTUMon [id number] SCROTUMEXAMINATION: US SCROTUM HISTORY: Acute pelvic pain [...] Electronically authenticated by: ALVINA CAICEDO Date: 2022-01-05 08:48NormalThKettering Health [facility] AUTO DIFFon [id number] #0.1 103/ulNormal0.0-0.1The [facility] HospitalComment on above:Performed By: #### CBC #### [facility] [address] [address] [address] Shabnam RaeBasophils/100 WBC (Bld)0.8 %Normal0.2-2.0The [facility] Comment on above:Performed By: #### CBC #### [facility] [address] [place] [address] Dr. Shabnam Rivera #0.1 103/ulNormal0.0-0.7The [facility] HospitalComment on above: Performed By: #### CBC #### [facility] [address] [place] [address] Dr. Shabnam Samosinophils/100 WBC (Bld)1.5 %Normal0.9-7.0The [facility] Comment on above:Performed By: #### CBC #### [facility] [address] [place] [address] Dr. Shabnam Samrythrocyte distribution width (RBC) [Ratio]12.8 %Kiodit93.0-15.0 [facility] HospitalComment on above:Performed By: #### CBC #### [facility] [address] [place] [address] Dr. Shabnam RaeHematocrit (Bld) [Volume fraction]40.3 %Critically low42.0-54.0 The [facility] HospitalComment on above:Performed By: #### CBC #### [facility] [address] [place] [address] Dr. Shabnam RaeHemoglobin (Bld) [Mass/Vol]13.4 g/dLCritically low14.0-18.0The [facility] HospitalComment on above:Performed By: #### CBC #### [facility] [address] [address] [address] Shabnam Hayward #0.03 10e3/ulNormal0.00-0.03The [facility] HospitalComment on above:Performed By: #### CBC #### [facility] [address] [address] [address] Shabnam Hayward %0.5 %Normal0.0-0.5The [facility] HospitalComment on above: Performed By: #### CBC #### [facility] [address] [address] [address] Shabnam Gomez #1.0 103/ulCritically low1.2-3.8The [facility] Comment on above:Performed By: #### CBC #### [facility] [address] [place] [address] Dr. Shabnam Pandyahocytes/100 WBC (Bld)16.4 %Critically low20.5-60.0The [facility] HospitalComment on above:Performed By: #### CBC #### [facility] [address] [place] [address] Dr. Shabnam GranadoUAL DIFF REQNONormalThe [facility] HospitalComment on above: Performed By: #### CBC #### [facility] [address] [place] [address] Dr. Shabnam Nava (RBC) [Entitic mass]29.5 kbAfbdum98.9-34.0The [facility] HospitalComment on above:Performed By: #### CBC #### [facility] [address] [place] [address] Dr. Shabnam Nava (RBC) [Mass/Vol]33.3 g/sTHedpkb51.9-35.2The [facility] HospitalComment on above:Performed By: #### CBC #### [facility] [address] [place] [address] Dr. Shabnam Nava (RBC) [Entitic vol]88.8 hPSzidjo72.0-94.0The [facility] HospitalComment on above:Performed By: #### CBC #### [facility] [address] [address] [address] Shabnam Mcfarland #0.6 103/ulNormal0.3-0.8The [facility] HospitalComment on above:Performed By: #### CBC #### [facility] [address] [address] [address] Shabnam Brunnerocytes/100 WBC (Bld)9.6 %Normal1.7-12.0[facility] Comment on above:Performed By: #### CBC #### [facility] [address] [place] [address] Dr. Shabnam Medrano #4.4 103/ulNormal1.4-6.5The [facility] HospitalComment on above:Performed By: #### CBC #### [facility] [address] [place] [address] Dr. Shabnam Larautrophils/100 WBC (Bld)71.2 %Otwaxz48.0-75.0The [facility] HospitalComment on above:Performed By: #### CBC #### [facility] [address] [place] [address] Dr. Shabnam Miranda mean volume (Bld) [Entitic vol]10.8 fLNormal9.5-13.5The [facility] HospitalComment on above:Performed By: #### CBC #### [facility] [address] [place] [address] Dr. Shabnam RaePLT158 103/kyWunnyo205-773Cmc [facility] HospitalComment on above: Performed By: #### CBC #### [facility] [address] [place] [address] Dr. Shabnam RaeRBC4.54 106/ulCritically low4.70-6.10The [facility] HospitalComment on above:Performed By: #### CBC #### [facility] [address] [place] [address] Dr. Shabnam RaeWBC6.2 103/ulNormal4.0-11.0The [facility] HospitalComment on above: Performed By: #### CBC #### [facility] [address] [address] [address] Shabnam RaeCT ABD/PELV W CONon [id number] ABD/PELV W CONCT ABD/PELV W CON: 01/04/2022 [...] by: MAYRA BERNAL Date: 2022-01-04 05:19Normal [facility] HospitalCT PELVIS WO CONon [id number] PELVIS WO CONEXAMINATION: CT PELVIS WO CON [...] Electronically authenticated by: MANUEL HOUGH Date: 2022-01-04 08:54NormMansfield HospitalCULTURE URINEon [id number] URINECulture Observations: No growthNoBethesda North HospitalComment on above:Performed By: #### PSASC #### [facility] [address] [address] [address] Shabnam Mckinney-19 PCR ([facility])on 01-34-5723TBPE-CoV-2 (COVID-19) RNA ELIJAH+probe Ql (Unsp spec)Not detectedNormalNOT DETECTEDThe [facility] Comment on above:Result Comment: When diagnostic testing is negative, the possibility of a false negative should be considered in the context of a patient's recent exposures and the presence of clinical signs and symptoms consistent with SARS-CoV-2. This test is not yet approved or cleared by the [place] Food and Drug Administration (FDA). This test was developed by [employer], [place], [place]. The performance characteristics of this test were validated by [facility]. The results are not intended to be used as the sole means for clinical diagnosis or patient management decisions. The [facility] is authorized under Clinical Laboratory Improvement [...] for this test is supported by the [employer] of [employer] and Human Service's declaration that [...] longer be used).Performed By: #### CVDTBH #### [facility] [address] [place] [address] Dr. Shabnam Cedillo URINE PROFILEon 09-30-5295Ediuvihkw Ql (U)NegativeNormal NEGATIVEThe [facility] HospitalComment on above:Performed By: #### PSASC #### [facility] [address] [place] [address] Dr. Shabnam Haile (U)CLEARNormalCLEARThe [facility] HospitalComment on above: Performed By: #### PSASC #### [facility] [address] [place] [address] Dr. Shabnam Mason (U)YELLOWNormalYELLOWWyandot Memorial Hospital on above: Performed By: #### PSASC #### [facility] [address] [place] [address] Dr. Shabnam Plummer micrscopic examination will be performed if indicated. NormalThe [facility] HospitalComment on above:Performed By: #### PSASC #### [facility] [address] [address] [address] Shabnam RaeGlucose Ql (U)NegativeNormalNEGATIVEMary Rutan HospitalComment on above:Performed By: #### PSASC #### [facility] [address] [address] [address] Shabnam RaeHemoglobin Ql (U)NegativeNormalNEGATIVEMary [facility] Comment on above:Performed By: #### PSASC #### [facility] [address] [address] [address] Shabnam RaeKetones Ql (U)NegativeNormalNEGATIVEMary Rutan HospitalComment on above:Performed By: #### PSASC #### [facility] [address] [place] [address] Dr. Shabnam RaeLEUKOCYTESNegativeNormalNEGATIVEMary Rutan HospitalComment on above:Performed By: #### PSASC #### [facility] [address] [place] [address] Dr. Shabnam RaeNitrite Ql (U)NegativeNormalNEGATIVEMary Rutan HospitalComment on above:Performed By: #### PSASC #### [facility] [address] [place] [address] Dr. Shabnam RaepH (U)6.5 [pH]Normal5-9[facility] HospitalComment on above: Performed By: #### PSASC #### [facility] [address] [address] [address] Shabnam RaeSPEC GRAVITY1.457Ppacnz7.005-<=1.025[facility] HospitalComment on above:Performed By: #### PSASC #### [facility] [address] [place] [address] Dr. Shabnam RaeUA PROTEINNegativeNormalNEGATIVE/ TRACEMary [facility]an Hospital Comment on above:Performed By: #### PSASC #### [facility] [address] [place] [address] Dr. Shabnam RaeUR MICRO INDNOT INDICATEDNoalThPaulding County HospitalComment on above:Performed By: #### PSASC #### [facility] [address] [place] [address] Dr. Shabnam Wubilinogen Qn (U)0.2 {Sarai'U}/dLNormal0.2 - 1.0The [facility] HospitalComment on above:Performed By: #### PSASC #### [facility] [address] [place] [address] Dr. Shabnam RaeLACTATE/LACTIC ACIDon [id number] [Moles/Vol]1.0 mmol/L Normal0.4-2.0The [facility] HospitalComment on above:Performed By: #### PSASC #### [facility] [address] [place] [address] Dr. Shabnam MoonF CHEM 8 (BAS METB)on 80-93-0775Qpfby gap [Moles/Vol]10.0 mmol/LNormalThe [facility] HospitalComment on above:Performed By: #### BMP #### [facility] [address] [place] [address] Dr. Shabnam RaeCalcium [Mass/Vol]8.5 mg/dLNormal8.5-10.1[facility] Comment on above:Performed By: #### BMP #### [facility] [address] [place] [address] Dr. Shabnam RaeChloride [Moles/Vol]103 mmol/CPwqzax27-356Ier [facility] Comment on above:Performed By: #### BMP #### [facility] [address] [place] [address] Dr. Shabnam RaeCO2 [Moles/Vol]29.2 mmol/AHzsmmh73.0-32.0[facility] Comment on above:Performed By: #### BMP #### [facility] [address] [place] [address] Dr. Shabnam RaeCreatinine [Mass/Vol]1.25 mg/dLNormal0.70-1.30The [facility] HospitalComment on above:Performed By: #### BMP #### [facility] [address] [place] [address] Dr. Shabnam SamGFR-AF DOMINICAN>60Normal>=60The [facility] HospitalComment on above:Performed By: #### BMP #### [facility] [address] [place] [address] Dr. Shabnam SamGFR-NON AF DOMINICAN>60Normal>=60The [facility] HospitalComment on above:Performed By: #### BMP #### [facility] [address] [place] [address] Dr. Shabnam RaeGlucose [Mass/Vol]132 mg/dLCritically fwit66-576Evj [facility] HospitalComment on above:Performed By: #### BMP #### [facility] [address] [place] [address] Dr. Shabnam RaePotassium [Moles/Vol]3.2 mmol/LCritically low3.5-5.1The [facility] HospitalComment on above:Performed By: #### BMP #### [facility] [address] [place] [address] Dr. Shabnam RaeSodium [Moles/Vol]139 mmol/CDercbp129-784Rmf [facility] Comment on above:Performed By: #### BMP #### [facility] [address] [place] [address] Dr. Shabnam RaeUrea nitrogen [Mass/Vol]19.0 mg/dLCritically high7.0-18.0The [facility] HospitalComment on above:Performed By: #### BMP #### [facility] [address] [place] [address] Dr. Shabnam RaeUrea nitrogen/Creatinine [Mass ratio]15.2 mg/mgNormalThe [facility] HospitalComment on above:Performed By: #### BMP #### [facility] [address] [place] [address] Dr. Shabnam RaeCERVICAL SPINE 2 OR 3 [facility] [id number] SPINE 2 OR 3 [facility] Department of Radiology [address] [place] [id number] Patient Name: MATTY GARCES : 1970 Sex: M Age: Race: White Pt. Location: 85 Patient Status: O Ordered Date: 07/06/2019 9:10:00 AM Completed Date: 07/06/2019 09:21 AM Requesting Provider: LUCIANO DAVIS Attending Provider: LUCIANO DAVIS Report Copy To: VENUS JAEGER Signs & Symptoms: M48.02 Spinal stenosis, cervical region I10 History: [facility] Comments: , STAT READ , STAT READ [...] findings. Electronically signed by:Bernice Hoyt. Transcribed by: [email or web address], User Resident: RADHA CHIN Electronically Signed by: BERNICE HOYT @ 07/06/2019 08:52 PM I personally read this/these film(s) with this residentPremier Health Miami Valley HospitalComment on above:Order Comment: , STAT READ , STAT READ , , , Ordering Provider - LUCIANO DAVIS MD , CERVICAL SPINE 2 OR 3 [facility] [id number] SPINE 2 OR 3 [facility] [address] [place] [phone] Patient Name: MATTY GARCES : 1970 [...] [facility] 3 [facility] 04/06/2019 7:28 AM EDT SIGNS [...] study. Electronically signed by:Bernice Hoyt. Transcribed by: [email or web address], User Resident: Electronically Signed by: BERNICE HOYT @ 04/06/2019 04:40 [facility] HospitalComment on above:Order Comment: AP/LAT, ODONTOID PLEASE DO SWIMMER'S VIEW FOLLOW UP HARDWARE AND ALIGNMENT, S/P ACDF, RECENT FALLSCERVICAL SPINE 2 OR 3 [facility] [id number] SPINE 2 OR 3 [facility] Department of Radiology [address] [place] [phone] Patient Name: MATTY GARCES : 1970 [...] findings. Electronically signed by:Bella King. Transcribed by: [email or web address], User Resident: KENNETH DUVAL Electronically Signed by: BELLA KING @ 02/20/2019 11:53 AM I personally read this/these film(s) with this residentPremier Health Miami Valley HospitalComment on above:Order Comment: C-SPINE 2 OR 3 VIEW POSTOP, EVALUATION HARDWARE AN ALIGNMENTBASIC METABOLIC PANELon 90-34-0506Alvotwn [Mass/Vol]9.2 mg/dLNormal8.6-10.3The [facility] CenterComment on above:Order Comment: No: Do not add to previous drawPerformed By: #### [id number] #### [facility] [address] [place] [address], USAChloride [Moles/Vol]101 mmol/GItdjck92-062Llz [facility] CenterComment on above:Order Comment: No: Do not add to previous drawPerformed By: #### [id number] #### [facility] [address] [place] [address], [place]ACO2 [Moles/Vol]26 mmol/TOokfht18-70Cja [facility] CenterComment on above:Order Comment: No: Do not add to previous draw Performed By: #### [id number] #### [facility] [address] [place] [address], USACreatinine [Mass/Vol]1.02 mg/dLNormal0.70-1.30The [facility] CenterComment on above:Order Comment: No: Do not add to previous drawPerformed By: #### [id number] #### [facility] [address] [place] [address], USAGFR/1.73 sq M predicted among blacks MDRD (S/P/Bld) [Vol rate/Area]mL/min/{1.73_m2}Normal>60The [facility] Comment on above:Order Comment: No: Do not add to previous drawPerformed By: #### [id number] #### [facility] [address] [place] [address], USAGFR/1.73 sq M predicted among non-blacks MDRD (S/P/Bld) [Vol rate/Area]mL/min/{1.73_m2}Normal>60The [facility] Comment on above:Order Comment: No: Do not add to previous drawPerformed By: #### [id number] #### [facility] [address] [place] [address], USAGlucose [Mass/Vol]124 mg/mCEwiq93-809Rgl [facility] CenterComment on above:Order Comment: No: Do not add to previous drawPerformed By: #### [id number] #### [facility] [address] [place] [address], USAPotassium [Moles/Vol]3.9 mmol/LNormal3.5-5.1The [facility] CenterComment on above:Order Comment: No: Do not add to previous drawPerformed By: #### [id number] #### [facility] [address] [place] [address], USASodium [Moles/Vol]137 mmol/OUqbhxo682-602Zpm [facility] CenterComment on above:Order Comment: No: Do not add to previous drawPerformed By: #### [id number] #### [facility] [address] [place] [address], USAUrea nitrogen [Mass/Vol]15 mg/dLNormal7-25The [facility] CenterComment on above:Order Comment: No: Do not add to previous drawPerformed By: #### [id number] #### [facility] [address] [place] [address], USACBC COMPLETE BLOOD COUNTon 00-99-0530Mngphgungcc distribution width (RBC) [Ratio]13.9 %Goxigu16.5-15.0The [facility] CenterComment on above:Order Comment: No: Do not add to previous draw Performed By: #### [id number] #### [facility] [address] [place] [address], USAHematocrit (Bld) [Volume fraction]50.0 %Mahwvi76.0-50.0The [facility] CenterComment on above:Order Comment: No: Do not add to previous drawPerformed By: #### [id number] #### [facility] [address] [place] [address], USAHemoglobin (Bld) [Mass/Vol]16.0 g/bPZjluou32.0-17.0The [facility] CenterComment on above:Order Comment: No: Do not add to previous drawPerformed By: #### [id number] #### [facility] [address] [place] [address], [facility] CLINICMCH (RBC) [Entitic mass]27.5 qqKkldmu46.0-33.0The Community Regional Medical CenterComment on above:Order Comment: No: Do not add to previous drawPerformed By: #### 92727 #### [facility] [address] [place] [address], [facility]INICMCHC (RBC) [Mass/Vol]32.0 g/tNFecqok38.0-35.0The [facility] Regional Medical CenterComment on above:Order Comment: No: Do not add to previous drawPerformed By: #### 80746 #### [facility] [address] [place] [address], [facility] CLINICMCV (RBC) [Entitic vol]85.9 qDDcmuko89.0-98.0The [facility] Medical CenterComment on above:Order Comment: No: Do not add to previous drawPerformed By: #### 65439 #### [facility] [address] [place] [address], USANucleated RBC/100 WBC (Bld) [Ratio]0 %Normal0-0The [facility] Regional Medical CenterComment on above:Order Comment: No: Do not add to previous drawPerformed By: #### 46723 #### [facility] [address] [place] [address], USAPLAT [id number] 10*3/mAEvcxas715-360Srh [facility] Medical CenterComment on above:Order Comment: No: Do not add to previous draw Performed By: #### 14581 #### [facility] [address] [place] [address], USARBC (Bld) [#/Vol]5.82 10*6/uLHigh4.20-5.70The [facility] Medical CenterComment on above:Order Comment: No: Do not add to previous drawPerformed By: #### 24228 #### [facility] [address] [place] [address], USAWBC (Bld) [#/Vol]15.85 10*3/uLHigh4.00-10.60The [facility] Medical CenterComment on above:Order Comment: No: Do not add to previous drawPerformed By: #### 97628 #### [facility] [address] [place] [address], [facility] CLINICOperative Reporton [id number] ReportMR#: [id number] I [facility] Pt. Name: Matty Garces Room #: [id number] Discharge Date: Birthdate: 1970 OPERATIVE REPORT DATE OF SURGERY: 01/30/2019 SURGEON: Luciano Davis M.D. 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 POSTOPERATIVE DIAGNOSIS: Failed instrumentation at C6-7 on the right. HAND PROFILER: ADENIKE Lugo. ANESTHESIA: Endotracheal, Hogan. PROCEDURES: Redo [...] Davis M.D. Date Trans: 01/31/2019 02:31 Eze/sasha DN_JN:[id number] cc: Venus Jaeger M.D. [address] [place] [address]BvenumAocPremier Health Miami Valley HospitalCERVICAL SPINE 2 OR 3 Son [id number] SPINE 2 OR 3 [facility]ni[facility] Department of Radiology [address] [place] [id number] Patient Name: MATTY GARCES : 1970 [...] documentation Electronically signed by:Justus Murphy. Transcribed by: [email or web address], User Resident: Electronically Signed by: JUSTUS MURPHY @ 01/30/2019 04:18 PMNormalThe Community Regional Medical CenterComment on above:Order Comment: C6-7 ACDFPOC GLUCOSE LABon [id number] [Mass/Vol]106 mg/kCYrjj25-742Ilr [facility] CenterComment on above:Performed By: #### 15723 #### [facility] [address] [facility] [place] [place] [address], [facility]*MRSA/MSSA DNA NASALon 01-23-2019*MRSA/MSSA DNA NASAL Clinical Report: (D) Specimen: NASAL SWAB Collected: 01/23/2019 15:02 Status: Final Last Updated: 01/23/2019 20:14 MSSA DNA (Final) Methicillin Susceptible Staphylococcus aureus DNA Detected MRSA DNA (Final) No Methicillin Resistant Staphylococcus aureus DNA DetectedNoSelect Medical Specialty Hospital - CantonComment on above:Performed By: #### 01852 #### [facility] [address] [facility] [place] [place] [address], [facility]ALTH CLINICAPTTon 30-37-6598lNDQ Coag (Bld) [Time]35.4 sHigh25.0-35.0 The [facility] Regional Medical CenterComment on above:Result Comment: ALL RESULTS [...] BE USED FOR THIS PURPOSE.Performed By: #### 57123, 33053 #### [facility] [address] [facility] [place] [place] [address], USABASIC METABOLIC PANELon 29-73-8450Xoyinyu [Mass/Vol]9.5 mg/dLNormal8.6-10.3The [facility] Medical CenterComment on above: Performed By: #### 11129, 30857 #### [facility] [address] [facility] [place] [address], USAChloride [Moles/Vol]101 mmol/SImwkxe96-344Ksr [facility] CenterComment on above:Performed By: #### 04575, 99174 #### [facility] [address] [place] [address], USACO2 [Moles/Vol]29 mmol/GMcnesl36-61Ity [facility] CenterComment on above:Performed By: #### 94892, 02658 #### [facility] [address] [place] [address], USACreatinine [Mass/Vol]1.08 mg/dLNormal0.70-1.30The [facility] Medical CenterComment on above:Performed By: #### 56598, 79779 #### [facility] [address] [place] [address], USAGFR/1.73 sq M predicted among blacks MDRD (S/P/Bld) [Vol rate/Area]mL/min/{1.73_m2}Normal>60The [facility] Comment on above:Performed By: #### 15498, 71061 #### [facility] [address] [place] [address], USAGFR/1.73 sq M predicted among non-blacks MDRD (S/P/Bld) [Vol rate/Area]mL/min/{1.73_m2}Normal>60The [facility] Comment on above:Performed By: #### 30677, 88774 #### [facility] [address] [place] [address], USAGlucose [Mass/Vol]87 mg/dHBxvfxp23-357Xlp [facility] CenterComment on above:Performed By: #### 87876, 70448 #### [facility] [address] [place] [address], USAPotassium [Moles/Vol]4.0 mmol/LNormal3.5-5.1The [facility] Medical CenterComment on above:Performed By: #### 35865, 33129 #### [facility] [address] [facility] [place] [address], USASodium [Moles/Vol]137 mmol/JXopqvn897-448Ega [facility] Medical CenterComment on above:Performed By: #### 03239, 86511 #### [facility] [address] [facility] [place] [address], USAUrea nitrogen [Mass/Vol]12 mg/dLNormal7-25The [facility] Medical CenterComment on above:Performed By: #### 11448, 26371 #### [facility] [address] [facility] [place] [address], [facility] CLINICCBC W/DIFFon 24-98-8300QYG BASOPHILS0.1 10*3/uLNormal 0.0-0.2The [facility] Medical CenterComment on above:Performed By: #### 32313, 46358 #### [facility] [address] [facility] [place] [address], USAABS IMM GRANS0.0 10*3/uLNormal0.0-0.2The [facility] Medical CenterComment on above:Performed By: #### 63132, 11213 #### [facility] [address] [facility] [place] [address], USAABS NEUTROPHILS5.3 10*3/uLNormal1.6-7.6The [facility] Medical CenterComment on above:Performed By: #### 14011, 31164 #### [facility] [address] [facility] [place] [address], USABasophils/100 WBC (Bld)0.9 %Normal0.0-1.0The [facility] Medical CenterComment on above:Performed By: #### 00971, 67285 #### [facility] [address] [facility] [place] [address], USAEosinophils (Bld) [#/Vol]0.2 10*3/uLNormal0.0-0.5The [facility] Medical CenterComment on above:Performed By: #### 76441, 51057 #### [facility] [address] [place] [address], USAEosinophils/100 WBC (Bld)2.3 %Normal0.0-6.0The [facility] Medical CenterComment on above:Performed By: #### 87436, 64145 #### [facility] [address] [place] [address], USAErythrocyte distribution width (RBC) [Ratio]13.8 %Normal 11.5-15.0The [facility] Medical CenterComment on above:Performed By: #### 54162, 59925 #### [facility] [address] [place] [address], USAHematocrit (Bld) [Volume fraction]49.6 %Fawyjw99.0-50.0The [facility] Medical CenterComment on above:Performed By: #### 50445, 09732 #### [facility] [address] [place] [address], USAHemoglobin (Bld) [Mass/Vol]16.4 g/hAZnbthb89.0-17.0The [facility] Medical CenterComment on above:Performed By: #### 39063, 15098 #### [facility] [address] [place] [address], USAIMMATURE GRANS0.5 %Normal0.0-1.0The [facility] Medical CenterComment on above:Performed By: #### 15283, 00018 #### [facility] [address] [place] [address], USALymphocytes (Bld) [#/Vol]1.2 10*3/uLNormal1.2-4.0The [facility] Medical CenterComment on above:Performed By: #### 08105, 27691 #### [facility] [address] [place] [address], USALymphocytes/100 WBC (Bld)16.6 %Low20.0-45.0The [facility] Medical CenterComment on above:Performed By: #### 09112, 36140 #### [facility] [address] [place] [id number], [facility] CITYH (RBC) [Entitic mass]27.8 uvNedwfe29.0-33.0The [facility] Medical CenterComment on above:Performed By: #### 67322, 34094 #### [facility] [address] [facility] [place] [address], [facility] CLINICMCHC (RBC) [Mass/Vol]33.1 g/wYSnlwbt76.0-35.0The [facility] Medical CenterComment on above:Performed By: #### 39338, 19607 #### [facility] [address] [facility] [place] [place] [address], [facility] CLINICMCV (RBC) [Entitic vol]84.2 jVGrdame43.0-98.0The [facility] Medical CenterComment on above:Performed By: #### 20358, 83962 #### [facility] [address] [facility] [place] [address], USAMonocytes (Bld) [#/Vol]0.7 10*3/uLNormal0.1-1.0The [facility] Medical CenterComment on above:Performed By: #### 41627, 65441 #### [facility] [address] [facility] [place] [address], USAMONOS9.4 %Normal5.0-12.0The [facility] Medical CenterComment on above:Performed By: #### 46276, 18339 #### [facility] [address] [facility] [place] [address], USANeutrophils/100 WBC (Bld)70.3 %Ffedxy12.0-72.0The [facility] Medical CenterComment on above:Performed By: #### 52367, 29287 #### [facility] [address] [place] [address], USANucleated RBC/100 WBC (Bld) [Ratio]0 %Normal0-0The [facility] Medical CenterComment on above:Performed By: #### 91875, 72336 #### [facility] [address] [facility] [address], USAPLAT BYZ514 10*3/rOQvnbxz985-494Qxc [facility] Medical CenterComment on above:Performed By: #### 56898, 24203 #### [facility] [address] [facility] [place] [address], USARBC (Bld) [#/Vol]5.89 10*6/uLHigh4.20-5.70The [facility] Medical CenterComment on above:Performed By: #### 52750, 32727 #### [facility] [address] [facility] [place] [address], USAWBC (Bld) [#/Vol]7.48 10*3/uLNormal4.00-10.60The [facility] Medical CenterComment on above:Performed By: #### 06131, 25551 #### [facility] [address] [facility] [address], USAPROTHROMBIN TIMEon 27-05-9727UTY Coag (PPP) [Relative time] 1.12 {INR}Normal0.91-1.16The [facility] Medical CenterComment on above:Result Comment: ACCCP RECOMMENDED [...] OPTIMAL THERAPEUTIC RANGE. CHEST 1995;108:231S-246S.Performed By: #### 15246, 98683 #### [facility] [address] [facility] [place] [address], USAPT Coag (PPP) [Time]14.4 cEqolsg80.3-14.8The [facility] Medical CenterComment on above:Result Comment: ALL RESULTS MUST BE INTERPRETED WITH RESPECT TO BLOOD DRAWING ARTIFACT OR DILUTION ERROR OF ANTICOAGULANT AT THE TIME OF SAMPLING.Performed By: #### 93507, 88523 #### [facility] [address] [facility] [place] [address], USATYPE AND SCREENon 42-78-9151ZRL INTERPRETATIONANoSelect Medical Specialty Hospital - CantonComment on above:Performed By: #### 58406, 74224 #### [facility] [address] [facility] [place] [address], USARH INTERPRETATIONPositiveNoSelect Medical Specialty Hospital - CantonComment on above:Performed By: #### 95188, 50752 #### [facility] [address] [facility] [place] [address], USACT 3D CERVICAL SPINE WO CONTRASTon 50-49-8179DX 3D CERVICAL SPINE WO CONTRASTUnSt. Vincent Hospital Department of Radiology [address] [place] [address] Patient Name: MATTY GARCES : 1970 Sex: M Age: Race: White Pt. Location: 85 Patient Status: D Ordered Date: 01/10/2019 2:15:00 PM Completed Date: 01/12/2019 10:32 AM Requesting Provider: LUCIANO DAVIS Attending Provider: LUCIANO DAVIS Report Copy To: VENUS JAEGER Signs & Symptoms: M48.02 Spinal stenosis, cervical region I10 History: [facility] para auth # [id number] 01/10/19-02/09/19 [id number] *er Comments: Exam: CT 3D CERVICAL SPINE [...] incomplete Electronically signed by:Ten Uriarte. Transcribed by: [email or web address], User Resident: Electronically Signed by: TEN URIARTE @ 01/13/2019 09:18 [facility] 3 [facility] 01-05-2019 CERVICAL SPINE 2 OR 3 SUniDel[facility] Department of Radiology [address] [place] [phone] Patient Name: MATTY GARCES : 1970 Sex: M Age: Race: White Pt. Location: Patient Status: O Ordered Date: 01/05/2019 9:00:00 AM Completed Date: 01/05/2019 09:06 AM Requesting Provider: LUCIANO DAVIS Attending Provider: LUCIANO DAVIS Report Copy To: Signs & Symptoms: M48.02 Spinal stenosis, cervical region I10 History: [facility] Comments: , , , Ordering Provider - [...] findings. Electronically signed by:Ten Uriarte. Transcribed by: [email or web address], User Resident: SHELLY DELA CRUZ Electronically Signed by: TEN URIARTE @ 01/05/2019 12:37 PM I personally read this/these film(s) with this residentPremier Health Miami Valley HospitalComment on above:Order Comment: , , , Ordering Provider - LUCIANO DAVIS MD , CERVICAL SPINE 2 OR 3 [facility] [id number] SPINE 2 OR 3 [facility]UniDel[facility] Department of Radiology [address] [place] [phone] Patient Name: MATTY GARCES : 1970 Sex: M Age: Race: White Pt. Location: 85 Patient Status: O Ordered Date: 08/30/2018 9:35:00 AM Completed Date: 08/30/2018 09:43 AM Requesting Provider: LUCIANO DAVIS Attending Provider: LUCIANO DAVIS Report Copy To: VENUS JAEGER Signs & Symptoms: M50.90 Cervical disc disorder, unsp, unspecified cervical region I10 History: [facility] Comments: , POST OP XRAY AP/LAT ONLY [...] findings. Electronically signed by:Bella King. Transcribed by: [email or web address], User Resident: RYAN ANDERSON Electronically Signed by: BELLA KING @ 08/30/2018 05:45 PM I personally read this/these film(s) with this residentPremier Health Miami Valley HospitalComment on above:Order Comment: , POST OP XRAY AP/LAT ONLY , POST OP XRAY AP/LAT ONLY , , , Ordering Provider - LUCIANO DAVIS MD , Operative Reporton [id number] ReportMR#: [id number] I [facility] Pt. Name: Matty Garces Room #: [id number] Discharge Date: Birthdate: 1970 OPERATIVE REPORT DATE OF SURGERY: 08/17/2018 SURGEON: Luciano Davis M.D. PREOPERATIVE DIAGNOSIS: Herniated cervical disk at C6-7. POSTOPERATIVE DIAGNOSIS: Herniated cervical disk at C6-7. HAND PROFILER: ADENIKE Larios. ANESTHESIA: Endotracheal, Braida. PROCEDURE: Anterior [...] Davis M.D. Date Trans: 08/17/2018 11:25 P/sasha DN_JN:[id number] cc: Venus Jaeger M.D. [address] [place] [address]MdxagxCqtPremier Health Miami Valley HospitalCERVICAL SPINE 2 OR 3 VWSon 25-41-2133QLBDVCGV SPINE 2 OR 3 [facility]ENTERniDel[facility] Department of Radiology [address] [place] [address] Patient Name: MATTY GARCES : [...] findings. Electronically signed by:Bernice Hoyt. Transcribed by: [email or web address], User Resident: KENNETH DUVAL Electronically Signed by: BERNICE HOYT @ 08/18/2018 01:06 PM I personally read this/these film(s) with this [facility] CenterComment on above:Order Comment: C6-7 ACDF with POC GLUCOSE LABon 83-59-2731Feidknf [Mass/Vol]113 mg/lZTcqp71-227YhfFirelands Regional Medical CenterComment on above:Performed By: #### 44533 #### [facility] [address] [place] [address], USARBC'S 2 UNITSon 68-87-5526YCOCISQEHK INTERP 1CMercy Health Willard HospitalComment on above:Performed By: #### 74234 #### [facility] [address] [place] [address], USACROSSMATCH INTERP 2CMercy Health Willard HospitalComment on above:Performed By: #### 67289 #### [facility] [address] [place] [address], USAPRODUCT CODE [id number] Health Miami Valley HospitalComment on above:Performed By: #### 31070 #### [facility] [address] [place] [address], USAPRODUCT CODE [id number] Health Miami Valley HospitalComment on above:Performed By: #### 31367 #### [facility] [address] [place] [address], USAPRODUCT STATUS 1RMercy Health Allen HospitalComment on above:Result Comment: Result changed by IF on 08/20/2018 07:48. The previous value was XM.Performed By: #### 55586 #### [facility] [address] [place] [address], USAPRODUCT STATUS 2RMercy Health Allen HospitalComment on above:Result Comment: Result changed by IF on 08/20/2018 07:48. The previous value was XM.Performed By: #### 48501 #### [facility] [address] [place] [address], USAUNIT ABO 1APremier Health Miami Valley Hospital Comment on above:Performed By: #### 10047 #### [facility] [address] [place] [address], USAUNIT ABO 2APremier Health Miami Valley Hospital Comment on above:Performed By: #### 51964 #### [facility] [address] [place] [address], USAUNIT ID [id number] Regional Medical CenterComment on above:Performed By: #### 84437 #### [facility] [address] [place] [address], USAUNIT ID [id number] Health Miami Valley HospitalComment on above:Performed By: #### 37639 #### [facility] [address] [place] [address], USAUNIT RH 1PosiAvita Health System Galion HospitalComment on above:Performed By: #### 31675 #### [facility] [address] [place] [address], USAUNIT RH 2PositivePremier Health Miami Valley HospitalComment on above:Performed By: #### 93391 #### [facility] [address] [place] [address], [place]*MRSA/MSSA CULTUREon 08-02-2018*MRSA/MSSA CULTUREClinical Report: (D) Specimen: NASAL SWAB Collected: 08/02/2018 12:37 Status: Final Last Updated: 08/03/2018 14:26 ISO (Final) No Methicillin Resistant Staphylococcus aureus Isolated (MRSA) ISO (Final) Methicillin Sensitive Staphylococcus aureus (MSSA) IsolatedNoSelect Medical Specialty Hospital - CantonComment on above:Performed By: #### 91840 #### [facility] [address] [facility] [place] [address], [facility]ALTH CLINICAPTTon 42-87-7779fOCQ Coag (Bld) [Time]31.2 sNormal 25.0-35.0The [facility] Medical CenterComment on above:Result Comment: ALL RESULTS [...] BE USED FOR THIS PURPOSE.Performed By: #### 66874, 80270 #### [facility] [address] [facility] [place] [address], [facility] CLINICBASIC METABOLIC PANELon 81-78-4333Gzhvyni [Mass/Vol]9.4 mg/dLNormal8.6-10.3The [facility] Medical CenterComment on above: Performed By: #### 42399 #### [facility] [address] [facility] [place] [address], USAChloride [Moles/Vol]103 mmol/ZMkrrhe14-233Fme [facility] CenterComment on above:Performed By: #### 95530 #### [facility] [address] [facility] [place] [address], USACO2 [Moles/Vol]29 mmol/LLyazhk38-82Rrc [facility] CenterComment on above:Performed By: #### 14634 #### [facility] [address] [facility] [place] [address], USACreatinine [Mass/Vol]1.06 mg/dLNormal0.70-1.30The [facility] Medical CenterComment on above:Performed By: #### 26476 #### [facility] [address] [place] [address], USAGFR/1.73 sq M predicted among blacks MDRD (S/P/Bld) [Vol rate/Area]mL/min/{1.73_m2}Normal>60The [facility] Comment on above:Performed By: #### 10629 #### [facility] [address] [facility] [place] [address], USAGFR/1.73 sq M predicted among non-blacks MDRD (S/P/Bld) [Vol rate/Area]mL/min/{1.73_m2}Normal>60The [facility] Comment on above:Performed By: #### 34846 #### [facility] [address] [place] [address], USAGlucose [Mass/Vol]84 mg/aDFkfuae19-520Wqz [facility] CenterComment on above:Performed By: #### 48673 #### [facility] [address] [facility] [place] [address], USAPotassium [Moles/Vol]4.0 mmol/LNormal3.5-5.1The [facility] Medical CenterComment on above:Performed By: #### 76325 #### [facility] [address] [place] [address], USASodium [Moles/Vol]140 mmol/HFgnzzf438-082Gxc [facility] CenterComment on above:Performed By: #### 71725 #### [facility] [address] [place] [address], USAUrea nitrogen [Mass/Vol]20 mg/dLNormal7-25The [facility] Medical CenterComment on above:Performed By: #### 98914 #### [facility] [address] [facility] [place] [address], [facility] CLINICCBC W/DIFFon 28-50-8798QES BASOPHILS0.1 10*3/uLNormal 0.0-0.2The [facility] Medical CenterComment on above:Performed By: #### 23025 #### [facility] [address] [facility] [place] [address], USAABS IMM GRANS0.1 10*3/uLNormal0.0-0.2The [facility] Medical CenterComment on above:Performed By: #### 65308 #### [facility] [address] [facility] [place] [address], [facility]ALTH CLINICABS NEUTROPHILS4.2 10*3/uLNormal1.6-7.6The [facility] Medical CenterComment on above:Performed By: #### 58891 #### [facility] [address] [facility] [place] [address], [facility] CLINICBasophils/100 WBC (Bld)1.3 %High0.0-1.0The [facility] Medical CenterComment on above:Performed By: #### 80346 #### [facility] [address] [facility] [place] [address], [facility] HEALTH CLINICEosinophils (Bld) [#/Vol]0.1 10*3/uLNormal0.0-0.5The [facility] Medical CenterComment on above:Performed By: #### 04823 #### [facility] [address] [facility] [place] [address], USAEosinophils/100 WBC (Bld)2.0 %Normal0.0-6.0The [facility] Medical CenterComment on above:Performed By: #### 34622 #### [facility] [address] [facility] [place] [address], USAErythrocyte distribution width (RBC) [Ratio]13.6 %Normal 11.5-15.0The [facility] Medical CenterComment on above:Performed By: #### 63924 #### [facility] [address] [place] [address], USAHematocrit (Bld) [Volume fraction]44.3 %Ptdjmk97.0-50.0The [facility] Medical CenterComment on above:Performed By: #### 89317 #### [facility] [address] [place] [address], USAHemoglobin (Bld) [Mass/Vol]15.1 g/bLTelavp22.0-17.0The [facility] CenterComment on above:Performed By: #### 41158 #### [facility] [address] [facility] [place] [address], USAIMMATURE GRANS1.1 %High0.0-1.0The [facility] Medical CenterComment on above:Performed By: #### 42182 #### [facility] [address] [facility] [place] [address], USALymphocytes (Bld) [#/Vol]1.2 10*3/uLNormal1.2-4.0The [facility] Regional Medical CenterComment on above:Performed By: #### [id number] #### [facility] [address] [place] [address], USALymphocytes/100 WBC (Bld)18.3 %Low20.0-45.0The [facility] Regional Medical CenterComment on above:Performed By: #### [id number] #### [facility] [address] [facility] [facility] [place] [address], USAMCH (RBC) [Entitic mass]29.0 jsYjfrjy32.0-33.0The [facility] Regional Medical CenterComment on above:Performed By: #### 86054 #### [facility] [address] [place] [address], USAMCHC (RBC) [Mass/Vol]34.1 g/nHVlxmwr21.0-35.0The [facility] Regional Medical CenterComment on above:Performed By: #### [id number] #### [facility] [address] [place] [address], USAMCV (RBC) [Entitic vol]85.0 yNUbmaum16.0-98.0The [facility] Regional Medical CenterComment on above:Performed By: #### 85723 #### [facility] [address] [place] [address], USAMonocytes (Bld) [#/Vol]0.7 10*3/uLNormal0.1-1.0The [facility] Medical CenterComment on above:Performed By: #### 11263 #### [facility] [address] [place] [address], CXZLSYPZ51.1 %Normal5.0-12.0The [facility] Regional Medical CenterComment on above:Performed By: #### 81772 #### [facility] [address] [place] [address], USANeutrophils/100 WBC (Bld)66.2 %Dsnsqt65.0-72.0The [facility] Regional Medical CenterComment on above:Performed By: #### [id number] #### [facility] [address] [place] [address], USANucleated RBC/100 WBC (Bld) [Ratio]0 %Normal0-0The [facility] Regional Medical CenterComment on above:Performed By: #### 62081 #### [facility] [address] [place] [address], USAPLAT AJA357 10*3/rCVdeqaz670-153Pyv Community Regional Medical CenterComment on above:Performed By: #### [id number] #### [facility] [address] [place] [address], USARBC (Bld) [#/Vol]5.21 10*6/uLNormal4.20-5.70The [facility] [place] Medical CenterComment on above:Performed By: #### [id number] #### [address] [address], [facility] CLINICWBC (Bld) [#/Vol]6.39 10*3/uLNormal4.00-10.60The [facility] Regional Medical CenterComment on above:Performed By: #### [id number] #### [facility] [address] [place] [address], USACERVICAL SPINE 4 OR 5 VIEWSon 54-62-0421IJFFFITR SPINE 4 OR 5 VIEWSUnSt. [facility] Hospital Department of Radiology [address] [place] [id number] Patient Name: MATTY GARCES : 1970 Sex: M Age: Race: White Pt. Location: Patient Status: D Ordered Date: 08/02/2018 1:05:00 PM Completed Date: 08/02/2018 01:29 PM Requesting Provider: LUCIANO DAVIS Attending Provider: LUCIANO DAVIS Report Copy To: VENUS JAEGER Signs & Symptoms: Z01.89 Encounter for other specified special examinations I10 History: [place] Comments: , PREOP XRAY AP/LAT \EANDE\ FLEX/EX [...] findings. Electronically signed by:Bella King. Transcribed by: [email or web address], User Resident: KENNETH DUVAL Electronically Signed by: BELLA KING @ 08/03/2018 11:58 AM I personally read this/these film(s) with this residentNoSelect Medical Specialty Hospital - CantonComment on above:Order Comment: , PREOP XRAY AP/LAT \EANDE\ FLEX/EX , PREOP XRAY AP/LAT \EANDE\ FLEX/EX , , , Ordering Provider - LUCIANO DAVIS MD , PROTHROMBIN TIMEon 04-52-0934NOT Coag (PPP) [Relative time]1.15 {INR}Normal0.91-1.16The [facility] Comment on above:Result Comment: ACCCP [...] OPTIMAL THERAPEUTIC RANGE. CHEST 1995;108:231S-246S.Performed By: #### [id number], [id number] #### [facility] [address] [facility] [place] [address], [facility] CLINICPT Coag (PPP) [Time]14.7 mPpxafe72.3-14.8The [facility] Regional Medical CenterComment on above:Result Comment: ALL RESULTS MUST BE INTERPRETED WITH RESPECT TO BLOOD DRAWING ARTIFACT OR DILUTION ERROR OF ANTICOAGULANT AT THE TIME OF SAMPLING.Performed By: #### [id number], [id number] #### [facility] [address] [facility] [place] [address], [facility] CLINICTYPE AND SCREENon 08-91-0605GBR INTERPRETATIONANoSelect Medical Specialty Hospital - CantonComment on above:Order Comment: 2 units 2 units 2 units 2 units 2 unitsPerformed By: #### [id number] #### [facility] [address] [facility] [place] [address], USARH INTERPRETATIONPositiveNoSelect Medical Specialty Hospital - CantonComment on above:Order Comment: 2 units 2 units 2 units 2 units 2 unitsPerformed By: #### [id number] #### [facility] [address] [facility] [place] [address], USAURINALYSIS REFLEXon 61-22-7772Tshswwhxdk (U)CLEARNormal CLEARThe Community Regional Medical CenterComment on above:Performed By: #### [id number] #### [facility] [address] [place] [address], USABilirubin [Mass/Vol]NegativeNormalNEGATIVEThe Community Regional Medical CenterComment on above:Performed By: #### [id number] #### [facility] [address] [place] [address], USABLOODNegativeNormalNEGATIVEThe Community Regional Medical CenterComment on above:Performed By: #### 07198 #### [facility] [address] [place] [address], USAColor (U)YELLOWNormalYELLOWThe Community Regional Medical CenterComment on above:Performed By: #### 27785 #### [facility] [address] [place] [address], USAGlucose [Mass/Vol]150 mg/dLAbnormalNEGATIVEThe Community Regional Medical CenterComment on above:Performed By: #### [id number] #### [facility] [address] [place] [address], USAKETONENegativeNormalNEGATIVEThe Community Regional Medical CenterComment on above:Performed By: #### 07924 #### [facility] [address] [place] [address], USALEUK ESTERNegativeNormalNEGATIVEThe Community Regional Medical CenterComment on above:Performed By: #### 01772 #### [facility] [address] [place] [address], USAMICRO NOT DONEnegative chemical reactions unless requested in original orderNormalThe Community Regional Medical CenterComment on above: Performed By: #### [id number] #### [facility] [address] [place] [address], USANitrite Ql (U)NegativeNormalNEGATIVEThe Community Regional Medical CenterComment on above:Performed By: #### 09225 #### [facility] [address] [facility] [place] [address], [facility] CLINICpH (Bld)5.1Fbfqoe1.0-8.0The [facility] Medical CenterComment on above:Performed By: #### 86979 #### [facility] [address] [place] [address], [facility]ICProtein (U) [Mass/Vol]NegativeNormalNEGATIVEThe Community Regional Medical CenterComment on above:Performed By: #### 84613 #### [facility] [address] [facility] [place] [address], USASPEC GRAV1.394Tqdj9.015-1.020The [facility] Regional Medical CenterComment on above:Performed By: #### 70101 #### [facility] [address] [place] [address], [facility] Vital Signs Date TimeVital SignValuePerforming XfafleosqTifuwmyf48-40-4020 15:09-0400Body cmJafortino Rainey [employer] Work Phone: [facility] HospitalXdqervgwqp84-61-3035 15:09-0400Body mass index (BMI) [Ratio]34.92 kg/n4PtfnxkiceqHeather Rainey [employer] Work Phone: [facility] HospitalSurhgocxgy79-96-5104 15:09-0400Body fggwke380.38 kgJafortino Rainey [employer] Work Phone: [facility] HospitalKjgxtcrnzt92-72-9525 15:09-0400Diastolic blood okykzlho03 mm[Hg]Heather Rainey [employer] Work Phone: [facility] HospitalDhzixpaolt45-12-4313 15:09-0400Systolic blood mm[Hg]Heather Rainey [employer] Work Phone: [facility] HospitalBdnzwvfved64-98-2401 11:03-0400Body fytcgg317 cm Rubén Geiger MD Work Phone: [facility] HospitalKmqanresjm50-86-7831 11:03-0400Body mass index (BMI) [Ratio]34.02 kg/h2CmwfxjjRubén Geiger MD Work Phone: [phone] HospitalZtrkpjnhhb16-53-1779 11:03-0400Body dqrexx491.2 kgRubén Geiger MD Work Phone: [phone] [place], [place] [address]Dztzykmtlk04-53-6480 11:03-0400Diastolic blood nlhocrri09 mm[Hg]Rubén Geiger MD Work Phone: [phone] [place], [place] [address]Cbojxwpvxp17-29-2311 11:03-0400Heart mzqw314 /min Rubén Geiger MD Work Phone: [phone])1-[address] [place], [place] [address]Nmuvehhuwj17-25-5650 11:03-0400Systolic blood phopdkcr383 mm[Hg]Rubén Geiger MD Work Phone: [phone] [place], [place] [address]Ypgnuhrosr73-81-5245 14:44-0400Body rwujod499 cm Rubén Geiger MD Work Phone: [phone] [place], [place] [address]Swwbciqysn73-33-0343 14:44-0400Body mass index (BMI) [Ratio]35.31 kg/o0UbzvrciRubén Geiger MD Work Phone: [phone] HospitalRubawwesgi92-16-2624 14:44-0400Body woohrx973.74 kgRubén Geiger MD Work Phone: [facility] HospitalUpdanpaedd18-47-0518 14:45-0400Body cm Rubén Geiger MD Work Phone: [facility] HospitalNgbtnnngeu45-32-5397 14:45-0400Body mass index (BMI) [Ratio]37.62 kg/f5CebykibRubén Geiger MD Work Phone: [facility] HospitalBqhlgzkctt07-41-9871 14:45-0400Body ouenzc867.9 kgRubén Geiger MD Work Phone: [facility] HospitalNtawpdnuay01-39-7707 10:30-0400Blood Pressure LocationKatReplaced by [facility] 06-15-2022 10:30-0400Diastolic blood cirkzsdr030 mm[Hg] Viola Lue [facility] 06-15-2022 10:30-0400Heart rate74 /minKathy Lue [facility] 06-15-2022 10:30-0400Respiratory rate16 /minKathy Lue [facility] 06-15-2022 10:30-0400Systolic blood jipnojrl510 mm[Hg] Viola Lue [facility] Encounters Encounter DateEncounter TypeCare ProviderFacilityStart: 07-13-2025 End: 50-77-8068Ftsnlf outpatient visit 25 minutesHeather Rainey PAPER [employer] Work Phone: noms Flanagan NeurologyComment on above:Excessive daytime sleepiness; Obstructive sleep apneaStart: 07-13-2025 End: 94-33-1889dyzvqyftcgJVDJYLYEDA M GRAZIANINot AvailableStart: 07-13-2025 End: 87-05-9045Peoqzu flowsheetHeather Rainey P[employer] Work Phone: noms NEUROLOGYStart: 07-13-2025 End: 27-13-0442Wvafut flowsheetHeather Rainey P[employer]ER [employer] Work Phone: noms NEUROLOGYStart: 06-20-2025 End: 79-75-6194rubxlncvyrIvhxjij M Hoy MD Work Phone: [facility] Work Phone: Start: 06-20-2025 End: 83-06-2876Tzvwubup ReferredRafik Massouh MD-LAB [facility] Start: 05-29-2025 End: 15-70-8615Hnqcatx encounter procedureJustnamita Eze Pauly DO-CT Scan [facility] Work Phone: Start: 05-29-2025 End: 45-30-7961jwxophfmrsUbifcbc M Hoy MD Work Phone: [facility] Work Phone: Start: 05-15-2025 End: 16-39-3148YxkqesBrpboxxord M Graziani NP Work Phone: noms Flanagan NeurologyComment on above:Excessive daytime sleepiness; Primary insomniaExcessive daytime sleepiness; Obstructive sleep apneaStart: 05-07-2025 End: 68-16-8916urlauezrnvYuoqntb M Hoy MD Work Phone: [facility] Work Phone: Start: 05-07-2025 End: 41-49-2175Wrgirtw encounter procedureJustnamita Eze Pauly DO-[facility] [place] Work Phone: Start: 04-04-2025 End: 93-74-0827Sclojesilviano Geiger MD Work Phone: noms NEUROLOGYStart: 04-04-2025 End: 39-40-2255Ayszyjsilviano Geiger MD Work Phone: noms BM NEUROLOGYStart: 04-04-2025 End: 62-39-8853Pbppaz outpatient visit 25 minutesBremuriel Geiger MD Work Phone: noms SWS NEURComment on above:Narcolepsy cataplexy syndrome (HCC) (Primary Dx); Excessive daytime sleepiness; Cervical disc disorder; Intractable chronic migraine with aura with status migrainosusStart: 04-04-2025 End: 45-68-7489llqbemuzjdOASJVOT W BAUERNot AvailableStart: 03-05-2025 End: 94-79-3967Imsbjuadx Result EncounterAmy Palmyra PA Work Phone: noms External Department UnsolicitedStart: 03-05-2025 End: 40-10-5444Zwpbgxpox Result EncounterJess HOYOS Work Phone: noms External Department UnsolicitedStart: 01-03-2025 End: 05-99-5286Hvytjr outpatient visit 25 minutesRubén Geiger MD Work Phone: noms SWS NEURComment on above:Primary narcolepsy with cataplexy (CMS/HCC) (Primary Dx); Excessive daytime sleepiness; Obstructive sleep apneaStart: 01-03-2025 End: 96-99-3241dxvwsdfzapGPZYFMF W BAUERNot AvailableStart: 01-03-2025 End: 92-27-9467Dhptolcaesar Geiger MD Work Phone: noms NEUROLOGYStart: 01-03-2025 End: 15-81-8328Mrvvhbcaesar Geiger MD Work Phone: noms BM NEUROLOGYStart: 12-11-2024 End: 59-76-0272cuqlfkqtdrFFCXXWS W BAUERNot AvailableStart: 12-11-2024 End: 35-10-9608Wvczkx outpatient visit 25 minutesRubén Geiger MD Work Phone: noms SWS NEURComment on above:Cubital tunnel syndrome on right (Primary Dx); Cervical paraspinal muscle spasm; Degeneration of intervertebral disc of lumbosacral region with discogenic back pain and lower extremity pain; Narcolepsy cataplexy syndrome (CMS/HCC)Start: 11-14-2024 End: 48-44-0060Ucnwaeeoa Jeff Mason EEG. T. Other Phone: noms SWS NEURStart: 10-12-2024 End: 02-80-2249Izxyvprum encounterHeather Rainey NP Work Phone: noms [facility] NEURO 210Start: 65-22-4161Sctansdjtu and management of inpatientCHRISTOPHER [facility] Start: 10-08-2024 End: 42-54-5900Qxeykytizl and management of inpatientJACK [facility] Hospitaltart: 10-02-2024 End: 75-24-6613ZfpibsVuafkpw Peterson LPNNOMS SV NEURO 210Comment on above: Excessive daytime sleepiness; Obstructive sleep apneaStart: 34-99-2112Trfqtnzpbh and management of inpatient MARIANNA ROBERTSWVUMedicine Harrison Community Hospitaltart: 61-23-3622Mrwkzluroh and management of inpatientBRANTLEY HINDERSUniDelaware County Hospital Start: 67-70-2308Awswmtqhwf and management of inpatientJAMIE [facility]ertart: 44-24-8894Jxujzrhkgh and management of inpatient SHIN [facility] Centertart: 34-41-7104Nqfwsvrvej and management of inpatientABDUL MUSTAPHAUniMercy Health St. Vincent Medical Centertart: 75-67-4397Vnfllesimz and management of inpatientRACHEL [facility] Centertart: 11-05-5981Vlcppsxbz department patient visitJAMIE [facility] Centertart: 41-10-6209Ephvriczc department patient visitJAMIE [facility]ertart: 09-23-2024 Emergency department patient visitRACHEL [facility]ertart: 09-23-2024 End: 96-90-4791Tvgpfdhlit and management of inpatientJEFFERY KATKOWVUMedicine Harrison Community Hospitaltart: 09-21-2024 End: 88-74-2423qucioleevlZpwie D [facility] Work Phone: Start: 09-21-2024 End: 46-41-9119Kfhepvgx ReferredFairmount Behavioral Health System DPM Work Phone: [facility]-LAB Path Spec To[facility] HospStart: 07-04-2024 End: 70-28-1915Jacrrzour encounterRubén Geiger MD Work Phone: noms SVH NEURO 210Start: 07-03-2024 End: 71-39-8365Iqakeb outpatient visit 25 minutesRubén Geiger MD Work Phone: noms SWS NEURComment on above:Excessive daytime sleepiness (Primary Dx); Obstructive sleep apnea; Primary insomnia; Cubital tunnel syndrome on rightStart: 07-03-2024 End: 82-04-5675Xiabvl Anastasiya Geiger MD Work Phone: noms BM NEUROLOGYStart: 07-03-2024 End: 52-27-3757Nqtclw Anastasiya Geiger MD Work Phone: noms NEUROLOGYStart: 05-10-2024 End: 83-31-1538NmtjqlPpxzdhj W Bauer MD Work Phone: noms SWS NEURComment on above:Primary insomniaStart: 01-03-2024 End: 17-28-4998vqodsohukaTOO [facility] Work Phone: [facility] Work Phone: Start: 01-03-2024 End: 95-01-2839Wssycipn ReferredDPM [facility] Work Phone: [facility]-LAB Path Spec [place] HospStart: 11-29-2023 End: 67-38-6093csqpkxqgtfWlufpos Vytautas Giedraitis MDFacility:[facility] Start: 10-18-2023 End: 34-01-6023twsdgnusykRrazanp Vytautas Giedraitis MDFacility:[facility] Start: 08-30-2023 End: 51-73-0395huvbmyiqtuSjjqpow Vytautas Giedraitis MDFacility:[facility] [place] Start: 07-12-2023 End: 39-45-0975rotacqkwgaRvyoawn Vytautas Giedraitis MDFacility:[facility] Start: 06-14-2023 End: 17-68-6576pzxpxtxqwjRvuprci Vytautas Giedraitis MDFacility:[facility] [place] Start: 12-06-2022 End: 03-56-8323moftorzwccIU VENUS HOY .Facility:S0Mphfv: 87-91-5398Ggmjtxlha for general adult medical examination without abnormal findingsDR VENUS HOY . [facility] [place]Start: 12-01-2022 End: 15-07-1914fsuroyxcizIX VENUS HOY .Facility:K9Fijtw: 12-01-2022 End: 57-18-9027Exqziayat for general adult medical examination without abnormal findingsDR VENUS HOY .Facility:T8Rldjv: 07-10-2022 End: 83-06-2280okhwmmzamkKS VENUS HOY .Facility:R5Pegiz: 03-26-2022 End: 01-49-9222zhfbaradquQP VENUS HOY .Facility:Y2Uhsdm: 03-13-2022 End: 72-59-9958nvgdzqmqlbEY VENUS HOY .Facility:X8Xofzc: 02-25-2022 End: 46-56-1712Lqxvyzi encounter procedureViola Grullon [facility] start: 01-04-2022 End: 34-82-6017aimjivoyunYI VENUS HOY .Facility:M6Kjtxq: 01-30-2019 End: 74-15-7255Oturpiwiev and management of inpatientPROVIDER UNKNOWN Facility:[facility]tart: 08-17-2018 End: 03-22-3914Abokvqc encounter procedurePROVIDER UNKNOWNFacility:[facility] Procedures DateProcedureProcedure DetailPerforming ClinicianStart: 80-48-6916RZ of lower leg without contrastVenus Jaeger MD Work Phone: Start: 79-30-9305TZA 12-LEADAmy Garry HOYOS Work Phone: Start: 74-44-7239RQI screeningDR VENUS HOY .Comment on above:Performed By: #### PSASC #### [facility] [address] [address] [address] Shabnam RaeStart: 15-83-0530YDOPWJ CERV JT W INTBD FUS DEV, ANT APPR A COL, OPENAZEDINE MEDHKOURStart: 59-73-5233CNWWDIX OF INT FIX FROM CERVCAL VERTEBRA, OPEN APPROACHAZEDINE MEDHKOURStart: 08-32-2105Upojhlmy screenPROVIDER UNKNOWN Comment on above:Performed By: #### [id number], [id number] #### [facility] [address] [facility] [place] [place] [address], USAStart: 06-36-8068MMVJOZ SPINE CORD SURGERYANTHONY BRAIDA Start: 88-31-4520WPCMRY SPINE FIXATION DEVICEAZEDINE MEDHKOURStart: 08-17-2018 NECK SPINE FUSE\T\REMOV BEL Z1HVYULHG MEDHKOURStart: 81-85-2703WR BONE ALGRFT STRUCT ADD-ONAZEDINE MEDHKOURStart: 31-28-5905Foafuwtt screenPROVIDER UNKNOWN Comment on above:Order Comment: 2 units 2 units 2 units 2 units 2 unitsPerformed By: #### [id number] #### [facility] [address] [facility] [place] [place] [address], USAStart: 02-08-1998H/O: vasectomyHistory of vasectomyRubén Geiger MD Work Phone: ColonoscopyKathy Lue Hemorrhoids (disorder)Viola Lue Hernia of abdominal cavity (disorder)Viola Lue TonsillectomyKathy Lue Plan of Treatment DateCare ActivityDetailAuthorStart: 11-05-2025 End: 53-57-6332Coijmox encounter ewepzgbxi17/23/2026 1:20 PM EST Office Visit [facility] [address] [place] [address] Rubén Geiger MD [address] [address] NOMClotilde Wiley NeurologyStart: 07-13-2025 End: 75-64-8149Eqxhqkw encounter hqjnzlnoq64/31/2025 2:40 PM EDT Office Visit [facility] [address] [facility] [address] [place] [address] Heather Rainey, [employer] [address] [place] [address], [place] [id number] ArrivedNOMS [facility] Comment on above:ArrivedStart: 06-27-2025 End: 48-36-5688Tjqzuat encounter procedureNOMS [facility] NEURStart: 06-17-0472MQRFH-19 Vaccine ( season)COVID-19 Vaccine ( season)NOMS HealthcareStart: 23-32-2621Gupeyzmuu vaccinationInfluenza Vaccine (#1)NOMS HealthcareStart: 04-04-2025 End: 48-05-4363Zmpuicz encounter procedureNOMS SWS NEURComment on above:Arrived Start: 01-03-2025 End: 96-82-7275Qaraycq encounter procedureNOMS SWS NEURComment on above:Arrived Start: 10-04-2024 End: 07-00-6663Gqqizse encounter medbicajs52/22/2025 2:20 PM EST Office Visit NOMS [facility] NEUR [address] [facility] [address] [place] [address] Rubén Geiger MD [address] [facility] [address], [place] [address] NOMS [facility] NEURStart: 59-76-9738Alfvspujayr Wound CultureSuperficial Wound CultureSelect Medical Specialty Hospital - Cleveland-Fairhilltart: 07-03-2024 End: 18-81-6832Cgpnvgs encounter procedureNOMS SWS NEURComment on above:Arrived Start: 80-02-1942Byzftttgc vaccinationInfluenza Vaccine (#1)[facility] Healthcare Start: 49-90-0729Qyhinnmsk B Vaccines (1 of 3 - 19+ 3-dose series)Hepatitis B Vaccines (1 of 3 - 19+ 3-dose series)[facility] HealthcareStart: 1976 DTaP/Tdap/Td Vaccines (1 - Tdap)DTaP/Tdap/Td Vaccines (1 - Tdap)[facility] Healthcare Start: 15-57-2247KVW Vaccines (1 of 1 - Standard series)MMR Vaccines (1 of 1 - Standard series)NOM HealthcareStart: 51-65-3985Sczezrybc for malignant neoplasm of colonNOMS HealthcareBacteria identified in Unspecified specimen by Aerobe cultureCT Lower leg - right W contrast IV XR Tibia and Fibula - right 2 ViewsH[facility] Immunizations Immunization DateImmunizationNotesCare YhhthpoiMbuvsfcn03-54-5593bmivvgrth virus vaccine, unspecified formulationJacsaeid Rainey P[employer]ER [employer] Work Phone: [facility] HospitalXubysobqww88-01-4229opwkuqlqc virus vaccine, unspecified formulationBremuriel Geiger MD Work Phone: noSaint John's [facility] Community HospitalSjtdsvtuys32-95-2455yorhpywkr virus vaccine, unspecified formulationBremuriel Geiger MD Work Phone: [facility] Payers DatePayer CategoryPayerPolicy [id number]-lbl [id number] [id number] [id number] 2..840.1.153171.3.579.2.647 [id number] 2.16840.1.101619.3.57[id number] 2.16.840.1.584250.3.57[id number] 2..840.1.867519.3.579.[id number] 2.16.840.1.290929.3.57[id number] 2.840.1.506229.3.579.[id number] 2.840.1.204245.3.579.[id number] 2.840.1.089860.3.57[id number] 2.840.1.876790.3.57[id number] 2.840.1.238992.3.57[id number] 2.840.1.628066.3.579.2.79933-42-6007Hnsmyur796843196 2.840.1.011715.3.57[id number] 2.840.1.501901.3.57[id number] 2.840.1.242822.3.579.2.0[id number] 2.840.1.329032.3.579.[id number] 2.840.1.375179.3.57[id number] 2.840.1.178434.3.57[id number] [id number] 2.16.840.1.3[id number] 2.16.840.1.9[id number] 2.16.840.1.607286.3.579.2.531 Social History DateTypeDetailFacilityTobacco smoking statusNo Smoking Status EnteredExecutive [facility] start: 03-27-2024 End: 02-80-8518Jbf [facility] start: 05-15-2018 End: 79-48-7303Cfemfnu smoking status NHISEx-smoker (finding)[facility]: 99-82-8612Bjb [facility]: 04-07-3731Khyudva smoking status NHISNever smoked tobacco [facility]: 23-71-6296Nzroyyr use and exposureSmokeless tobacco non-userNOMS HealthcareStart: 03-27-2024 End: 86-17-3977Imrokraka beverage intakeEx-drinker (finding)[facility] Start: 03-27-2024 End: 45-14-0487Fruhzoz of Social functionNOMS HealthcareStart: 70-23-5925Wfc assigned at birthNot on fileNOMS HealthcareStart: 03-26-1936JbaHgbr (finding) [facility]: 51-83-8322CmhYoaoELOX [facility] Functional Status GophQfvqnjqojjRvihnbAcofarzt92-39-1436Yuwghspphr StatusN/AExecutive [facility] Clinical Notes 02-25-2022 to 07-13-2025 Note Date & RnfxKqzxYjgogtmv40-63-6520 History of Present illness Narrative* Heather Rainey, [employer] - 07/13/2025 2:40 PM EDT Images from [...] care. This clinical note was created utilizing [employer] documentation system. All information has beenthoroughly reviewed, corrected as necessary, and authenticated by the provider to ensure accuracy and completeness. On occasion, [employer] documentation system erroneously drops words or replaces aspoken word with a similar sounding word. Please notify with any questions or concerns regarding this clinical note. documented in this encounterPershing Memorial [id number] Radiology Diagnostic study [facility] [place] [address] [place] [address] CT Scan Report Signed Patient: Matty Garces MR#: [id number] : 1970 Acct:[id number] Age/Sex: 54 / M ADM Date: 5 Loc: CT Room: Type: [facility] CLI Attending Dr: Jameel Coats DO [...] Irving M.D. 05/29/2025 11:40 PM Dictation Location: [facility]--17 Transcribed By: [facility] 05/29/252339 Dictated By: Francis Irving II, MD 05/29/25 2878 Signed By: 05/29/252339 Work Phone: 1(889) 584-779709-03-2025 Telephone encounter Note* Telephone Encounter - Heather Rainey NP - 05/16/2025 8:45 AM EDT OARRS reviewed [facility] [id number] Miscellaneous Notes* Telephone Encounter - Heather Rainey NP - 05/16/2025 8:45 AM EDT OARRS reviewed documented in this encounterPershing Memorial [id number] Evaluation note* Diagnosis Onset Date Resolution Status Admit Date Hypertrophy of bone of lower leg noneactiveAugust 2024 11:21amFracture of right tibia and fibulanoneactive May 07, 2025 11:21amRight leg painnoneactiveAugust 2024 11:21am [facility] Work Phone: 1(948) 214-507407-23-2025 History of Present illness Narrative* Rubén Geiger [...] in all four extremities, including at least pumping plant operator, finger abductors, biceps, triceps, deltoid, toe flexors [...] refill for Xywav will be sent to [facility]. If symptomspersist or worsen, further [...] up in 3 months. documented in this encounterPershing Memorial [id number] History of Present illness Narrative* Rubén Geiger [...] 1 mg, Oral, 2 times daily HYDROcodone-acetaminophen (Benton) 5-325 MG tablet hydrOXYzine pamoate (Vistaril) 25 [...] in all four extremities, including at least pumping plant operator, finger abductors, biceps, triceps, deltoid, toe flexors [...] Increase Xywav to 6mg documented in this encounterPershing Memorial HospitalZfflsdxnsp94-97-6059 History of Present illness Narrative* Rubén Geiger [...] 1 mg, Oral, 2 times daily HYDROcodone-acetaminophen (Benton) 5-325 MG tablet hydrOXYzine pamoate (Vistaril) 25 [...] in all four extremities, including at least pumping plant operator, finger abductors, biceps, triceps, deltoid, toe flexors [...] intracranial or extracranial stenosis. documented in this encounterPershing Memorial HospitalWetkhxmwoq15-76-6541 Telephone encounter Note* Telephone Encounter - Isabella Manzano - 11/14/2024 9:49 AM EST Pt called for refill on Zofran. [facility] Work Phone: 1(781) 658-384203-04-2025 Miscellaneous Notes* Telephone Encounter - Isabella Manzano - 11/14/2024 9:49 AM EST Pt called for refill on Zofran. documented in this encounterPershing Memorial HospitalFatutjahll99-55-4928 Telephone encounter Note* Telephone Encounter - Heather [...] sent and if I search patient chat. [facility] HospitalRerjacqxdy93-32-9921 Miscellaneous Notes* Telephone Encounter - Heather Rainey [...] I search patient chat. documented in this encounterPershing Memorial HospitalEzwclaobqn01-43-2824 NoteOccupational Therapy Occupational Therapy Treatment Note Patient [...] going to put in a elba toilet. (Derrick Follower suggesting a RTS or to have son put in toilet however, pt stated that he will replace the toilet himself) Objective 1 Pt was up in chair at [facility] with on her way. Objective 2 Derrick Follower provided education on home and bathroom safety. [...] A Little (Min Henrietta (more content not included)...[facility] 10-11-2024 NoteHospital Medicine Discharge Summary [...] 54-year-old male who came from [facility] due to left lower extremity cellulitis. [...] 10/26/2024 2:50 PM Sandrine Field MD [facility] Your medication list START taking these medications [...] Medications These medications were sent to [facility] - [place], [place] - [address] [place] [address] [place] [address], [facility] [address] Phone (more content not included)...[facility] 10-11-2024 NotePharmacy Dosing Service - [...] or questions Thank you, Sudha Camacho, PharmD, 10/11/24[facility]01-29-2025 Note Attestation signed by Sandrine [...] with any concerns via the Orthopaedic pager ([phone]) at any time. Jazzmine Casanova MD Orthopedic Surgery Resident, PGY 1UnSt. [facility] Hospital01-28-2025 [facility] Medicine Daily Progress Note - 10/10/2024 6:40 PM; Room: [address] [place] [address] Admission: 10/08/2024 5:47 AM; Length of stay: 2 days THE HOSPITALIST TEAM PREFERS TO USE [employer] CHAT FOR NON-URGENT COMMUNICATION 7AM-7PM. IF I DO NOT RESPOND WITHIN 20 MINUTES OR URGENT MATTERS, PLEASE CALL THROUGH THE INDUSTRIAL TECHNOLOGIST. FROM 7PM-7AM, PLEASE PAGE [phone](COVR). Code Status: Full Code Barriers to Discharge: [...] , FREET4 , CORTISOL , FEV1 , KHC4BOT , DLCO , RVSP , HDL , LDL No results found for: [id number] , IRON , TIBC , C3 , [...] Expected Discharge Disposition: Home-Health Care [facility] (06) PT (more content not included)...[facility]01-28-2025 NoteUnUK Healthcare Vascular Surgery/Wound Care CONSULTATION Reason for Consult: [...] Patient reports that he has followed with pumper gauger apprentice in [place] for many years for treatment of his left great toe DFU. States that is chronic and has been minimal healing progress until recently. Patient states he would like to resume care with this pumper gauger apprentice at discharge. He has not been able to see pumper gauger apprentice since previous discharge due to scheduling issues. [...] on file Occupational Histor (more content not included)...[facility]01-28-2025 NotePhysical Therapy Physical Therapy Treatment [...] Stand Technique 1 S (more content not included)...[facility] 10-10-2024 Note. Pharmacy Dosing Service [...] 5 days. -Check BUN/SCr daily Erin RangelD, 10/09/24[facility]01-27-2025 Note Occupational Therapy Occupational Therapy Evaluation Patient Name: Matty Garces : 1970 Today's Date: 10/09/2024 Time in:1504 Time out: 1526 Present Illness History: 54 y/o M presented from [facility] with R LE cellulitis. Patient [...] Level of Function Prior Function Level of Lee: Independent with ADLs and functional transfers, Independent [...] mobility, transfers and fu (more content not included)...[facility]01-27-2025 Note10/09/24 0909 Admission Assessment Questions [...] Status Interested Does the patient have a onsite case manager assigned to them through their insurance? No Living Arrangement (Current/Prior to Hospitalization) Private residence (lives with ) Does the patient have history of C or SNF? Yes (Active with [facility]) Assistive Device Wheelchair;Bedside Commode;Walker Patient's goal for discharge Home with [facility] Was patient reminded that goal for discharge is 11am? No Does the patient have transportation at discharge? Yes Type of Residence Private residence;Home care staff Is PT/OT appropriate? Yes Is PT/OT ordered? Yes Is SW consult appropriate? Yes Is SW consult ordered? Yes Do you understand the benefits of MyChart? Yes Were you able to send link and activate MyChart? [facility]01-27-2025 NoteHospital Medicine Daily Progress Note - 10/09/2024 12:13 PM; Room: [address] [place] [address] Admission: 10/08/2024 5:47 AM; Length of stay: 1 days THE HOSPITALIST TEAM PREFERS TO USE [employer] CHAT FOR NON-URGENT COMMUNICATION 7AM-7PM. IF I DO NOT RESPOND WITHIN 20 MINUTES OR URGENT MATTERS, PLEASE CALL THROUGH THE INDUSTRIAL TECHNOLOGIST. FROM 7PM-7AM, PLEASE PAGE [phone](COVR). Code Status: Full Code Barriers to Discharge: [...] , FREET4 , CORTISOL , FEV1 , DSO0JEH , DLCO , RVSP , HDL , LDL No results found for: [id number] , IRON , TIBC , C3 , [...] Expected Discharge Disposition: [facility]-Health [place] [facility] ([facility]) PT Discharge Recommendations: Home PT Signed C (more content not included)...[facility]01-27-2025 NotePhysical Therapy Physical Therapy Re-Evaluation Patient Name: Matty Garces : 1970 Today's Date: 10/09/2024 General Subjective: Attempted to see pt earlier today ([id number]) for mobility assessment. Pt deferred d/t pain [...] Exercise Therapeutic Exercise Therape (more content not included)...[facility] 10-09-2024 Note. Pharmacy Dosing Service [...] steady state -Check BUN/SCr daily Erin RangelD, 10/09/24UnSt. [facility] Hospital01-27-2025 Note Orthopaedic Surgery Orthopaedic Surgery Progress [...] Rivas MD Orthopaedic Surgery, PGY-2 Ortho Pager [phone] 10/09/24 6:38 AM I am available via [employer] 6a-6p. May contact the on-call resident with any concerns via the Orthopaedic pager at any time.[facility]01-26-2025 NoteCase was discussed with the AYAKA on 10/08/2024. I agree with the history, physical, assessment, and plan of care. I discussed the findings and therapeutic plan. I agree with the documentation, except for any updates below. Fabiola Wade, [facility]01-26-2025 NotePhysical Therapy Evaluation Patient Name: Matty Garces Today's Date: 10/08/2024 Admit Date: 10/08/2024 Time In: 1:20pm Time Out: 1:45pm Cumulative minutes: 25 minutes Billed minutes: 25 minutes; 15 min eval; 10 min therapeutic exercise to review HEP x10 reps. History of present illness Per H&P: Matty Garces is an 54 y.o. male who came from [facility] with LLE cellulitis. Patient has PMH of hypertension, diastolic heart failure, GERD, anxiety. He recently was admitted here and had right leg tib/fib fracture and seen by our ortho team and had closed insertion with intramedullary wendy on 09/24/24 and was discharged home. He reports he went to [place] ER due to increased pain, swelling and [...] stating he already has [facility] set up and wants to go home. Vascular surgery was consulted for a chronic left foot ulcer. Pulmonary navigator was consulted for PATEL and recommended OP sleep study. On day of discharge, Trauma team was informed at approximately 1730 per [facility] that patient went into a-flutter and sustained for approximately 2 hours from approximately 9702-6643. Trauma team ordered a STAT ECG and [...] WB status. Objective assessment (more content not included)...[facility]01-26-2025 NotePharmacy Dosing Service - Vancomycin Initial Consult Note Pharmacy has been consulted for the dosing and evaluation of Drug: Vancomycin Indication: complicated skin and soft tissue infection AUC 400-600 mg*hr/L and trough 10-20 mcg/mL Other Antimicrobial Regimens: cefepime Labs and Renal Function Total body weight: 134 kg (295 lb) [place] body weight: 82.2 kg (181 lb 3.5 [...] Comments: - 54 year old male from [place] with LLE cellulitis -Had intramedullary wendy placed [...] questions Thank you, Altaf Martin, PharmD, 10/08/24UnSt. Vincent Hospital01-26-2025 Note Will consult wound careUnSt. Vincent Hospital01-26-2025 Note Continue vanco and zosyn Ortho following Will get blood culturesUnSt. Vincent Hospital01-26-2025 Note Continue citalopram, clonazepamUnSt. Vincent Hospital01-26-2025 NoteContinue modafinil, coregUnSt. Vincent Hospital01-26-2025 Note Not in exacerbation Continue furosemide, coreg, asaUnSt. Vincent Hospital01-26-2025 NoteOrtho following, concern for possible infection Admit to med surg Activity orders per ortho with LLE Cardiac diet Will get labs this morning and follow up on results Daily bmp and cbc to monitor kidney function, electrolytes, hgb and wbc Case will be discussed with attending physicianCommunity [facility] Medical Center01-26-2025 NoteHospital Medicine History and Physical 10/08/2024 7:26 AM THE HOSPITALIST TEAM PREFERS TO USE [employer] FOR NON-URGENT COMMUNICATION 7AM-7PM. IF I DO NOT RESPOND WITHIN 20 MINUTES OR URGENT MATTERS, PLEASE CALL THROUGH THE INDUSTRIAL TECHNOLOGIST. FROM 7PM-7AM, PLEASE PAGE [phone](COVR). Chief Complaint Chief Complaint Patient presents with Cellulitis History of Present Illness Matty Garces is an 54 y.o. male who came from [facility] with LLE cellulitis. Patient has PMH of hypertension, diastolic heart failure, GERD, anxiety. He recently was admitted here and had right leg tib/fib fracture and seen by our ortho team and had closed insertion with intramedullary wendy on 09/24/24 and was discharged home. He reports he went to [place] ER due to increased pain, swelling and [...] this hospital stay by a member of [facility]. Past Medical History Past Medical History: [...] Insecurity: No Food Insecurity (more content not included)...[facility]01-20-2025 Telephone encounter Note* Telephone Encounter - Marianna Sheehan LPN - 10/02/2024 2:19 PM EST Provigil refill request to [facility] sent to provider. Last appt. 07/03/24 [facility] HospitalLdplndksty24-13-5953 Miscellaneous Notes* Telephone Encounter - Marianna Sheehan LPN - 10/02/2024 2:19 PM EST Provigil refill request to [facility] sent to provider. Last appt. 07/03/24 documented in this encounterPershing Memorial HospitalJkhsegngmr12-05-8493 NoteTrauma team informed at approximately 1730 per [facility] that patient went into a-flutter and sustained for approximately 2 hours from approximately [id number]. Trauma team ordered a STAT ECG and [...] tonight, AMA AMA paperwork reviewed and signed [facility]01-16-2025 Note09/28/24 1537 Home Oxygen Therapy Evaluation Pulse Oximetry on room air at Rest 94 Pulse Ox on room air while walking 96 Patient Qualification for home oxygen Does not qualify for home oxygen this visit (When pt is sleeping, apnea is noted and at times saturation drops but when pt is awake and moving his oxygenation is stable)[facility]01-16-2025 NoteUnUK Healthcare Trauma Surgery Progress Note Subjective Patient was [...] Value Ventricular Rate 82 Atrial Rate 82 [place] Interval 164 QRS DURATION 92 QT Interval 386 QTC CALCULATION(BAZETT) 450 P [place] 61 R-[place] 18 T Wave [place] 69 Impression Normal sinus rhythm Normal ECG [...] C, PT/OT recommending walker, commode, and rolling wheelchair.[facility]01-16-2025 Note Physical Therapy Physical Therapy [...] EOB, commode, and recliner (more content not included)...[facility]01-16-2025 NoteOccupational Therapy Occupational Therapy Treatment [...] apnea) Gastroesophageal reflux disease Obese Co-tx with CAUSTIC PUMP OPERATOR to facilitate purposeful activity, 2/2 high fall risk, impaired dyn standing balance & act tolerance, poor safety awareness, & poor safety awareness with STS, transfers, & functional ambulation; To maintain safety of patient & staff. 09/28/24 1358 OT Last Visit OT Received On 09/28/24 General Subjective I got my w/c 3rd hand...from my [id number]-ftw. Treatment Duration (min) 55 Minutes Response to [...] not maintain precs. General Assessment Hearing mild [place] Skin Integrity ALVARO wrap to RLE, DFU [...] during mary lou-care post BM, standing at [facility]. Unsteadiness present. Static Sitting Balance Static Sitting-Balance Support Feet supported Static Sitting-Level of Assistance Distant supervision Static Sitting-Comment/Number of Minutes Supervision for safety Dynamic Sitting Balance Dynamic Sitting-Balance Support Feet supported;Unilateral upper extremity supported Dynamic Sitting Balance-Level of Assistance Close supervision Dynamic Sitting-Comments SBA for safety scooting EOB, positioning on [facility] Static Standing Balance Static Standing-Balance Support With [...] mary lou-care & hygiene in stance at [facility] with RW. Add'l SBA for safety. Pt very unsteady with poor awareness. CGA during functional ambulation with device. Cues for safety awareness, & maintaining WB precs. Bed Mobility 1 Bed Mobility From 1 Supine Bed Mobility Type 1 To Bed Mobility to 1 Short sit Level of Assistance 1 Close superv (more content not included)...[facility]01-16-2025 NoteCalled [employer] by phone to check on status of pt's DME (wheelchair, walker, bedside commode). Was advised they did not receive it via [employer] and would need it direct faxed to [phone]. Faxed referral and was advised they will [...] to call . UPDATE 3:05PM- Spoke with [employer] again and was advised the wheelchair [...] discharge around 6pm tonight. Also spoke with [facility] and was provided w/ fax [phone] to send AVS once ready. UPDATE 4:05PM- Direct faxed final AVS to [facility]01-16-2025 NoteUnUK Healthcare Vascular and Wound Surgery DAILY PROGRESS NOTE [...] 2. Unchanged cardiomediastinal silho (more content not included)...[facility]01-15-2025 NoteDischarge Planning: Home with [facility] The patient was accepted by [facility]. DME referral sent to [facility]. The patient would like the DME either delivered to the hospital or his home prior to discharge.[facility]01-15-2025 Note Occupational Therapy Occupational Therapy Treatment Patient Name: Matty Garces : 1970 Today's Date: 09/27/2024 Time in:1357 Time out:1450 Total time:53 minutes,23 min OT, additional for CAUSTIC PUMP OPERATOR [place] provided to maximize safety as progressed [...] precautions etc Transfers 2 (more content not included)...[facility]01-15-2025 Note Physical Therapy Physical Therapy [...] 1 for lift, balance, (more content not included)...[facility]01-15-2025 Note Attestation signed by Fahad [...] kg (299 lb 2.6 oz) (09/27 338) [place] Coma Scale Score: 15 Intake/Output Summary (Last [...] Value Ventricular Rate 82 Atrial Rate 82 [place] Interval 164 QRS DURATION 92 QT Interval 386 QTC CALCULATION(BAZETT) 450 P [place] 61 R-[place] 18 T Wave [place] 69 Impression Normal sinus rhythm Normal ECG [...] for acute findings. Respiratory: (more content not included)...[facility] 09-26-2024 NotePer patients patient was to start with [facility] on the day of admit. Referral made as requested. SW following.[facility]01-14-2025 NoteUnUK Healthcare Vascular and Wound Surgery DAILY PROGRESS NOTE Subjective Patient seen and examined at bedside. No acute events overnight. Vital signs stable. Denies pain to the left ulcer. Patient states he follows regularly with pumper gauger apprentice [facility] and plans to follow-up with [...] Increased oxygen requirements. COMPARISON: (more content not included)...[facility] 09-26-2024 NoteOccupational Therapy Occupational Therapy [...] on with B LE's elevated Objective 2 Derrick Follower discussed importance of discharging to facility for continued therapy prior to going home however, pt declines. Pt transfers are currently unsafe with handbook writer questioning ability to maintain WB status. [...] Other Pt is impulsive during standing/transfer activities. Derrick Follower questions pts safety while at home. General [...] endurance, Decreased functional mobility, Decreased IADLs OT Assessment/BUDGET DIRECTOR Summary: Pt would benefit from continued [...] training, Endurance training, Patient/f (more content not included)...[facility]01-14-2025 NoteOrthopaedic Surgery Orthopaedic Surgery Progress [...] Can be reached at the orthopedic pager: [phone] Luis Felipe Rivas MD 09/26/24 7:24 AM Ortho Pager: [phone]. Vincent Hospital01-14-2025 Note [facility] Trauma Surgery [...] kg (303 lb 9.2 oz) (09/26 043) [place] Coma Scale Score: 15 Intake/Output Summary (Last [...] Value Ventricular Rate 82 Atrial Rate 82 [place] Interval 164 QRS DURATION 92 QT Interval 386 QTC CALCULATION(BAZETT) 450 P [place] 61 R-[place] 18 T Wave [place] 69 Impression Normal sinus rhythm Normal ECG [...] Syncopal workup -Telemetry monitori (more content not included)...[facility]01-13-2025 NotePt was seen early this morning about wearing BiPap for possible sleep apnea due to periods of apnea and decreased oxygen saturation overnight. Pt refused BiPap, stating he has tried it before and it gives him migraines. Pt was agreeable to wearing a salter at night to help with oxygenation.[facility]01-13-2025 Note09/25/24 1528 Referral Data Referral Source workers' compensation claims examiner Referral Reason Follow up;Information Patient Information Primary Caregiver Spouse Activities of Daily Living Assistive Device Walker;Wheelchair Behavior Oriented Communication Talks;Understands speaking Discharge Planning Living Arrangements Spouse/significant other Support Systems Spouse/significant other Type of Residence Private residence;[facility] (await name of agency from ) Post Acute Services In home services (agreeable to [facility]) Type of Home Care Services (Current) Skilled Home Servicies;Home OT;Home PT ([facility] was just going to start services before admit) Patient's goal for discharge home with [facility] Does the patient need discharge transport arranged? No () Screened by [facility]. Pt declines SNF placement and is agreeable to take pt home with [facility]. Await name of [facility] agency that was approved to start services. Pt will likely need RT for home O2. Will follow up with pt's for [facility] agency. thinks [facility] agency is [employer] [facility] or [employer] [facility]. SW will follow with referrals.[facility]01-13-2025 Note09/25/24 1332 Admission Assessment Questions [...] Status Interested Does the patient have a onsite case manager assigned to them through their insurance? No Living Arrangement (Current/Prior to Hospitalization) Private residence;Home self care Does the patient have history of HHC or SNF? Yes (pt could not remember the [facility] agency name, neither could ) Assistive Device [...] Assessment completed with , patient deferred to .[facility]01-13-2025 NoteThe findings from this face to face encounter indicate the reason this patient requires a bedside commode. Patient is physically incapable of using regular toilet facilities. Patient is confined to 1 level of the home with no toilet on that level Marilou Tomlin [facility] Department of Surgery - Trauma [phone]01-13-2025 NoteThe findings from this face [...] is provided in the home Marilou Tomlin [facility] Department of Surgery - Trauma [facility] [place], [place] 1278101-13-2025 NoteThe findings from this face to face [...] been discussed with the patient Marilou Tomlin [facility] Department of Surgery - Trauma [phone] [place], [place] 1683701-13-2025 NotePhysical Therapy Physical Therapy Evaluation Patient Name: [...] demo General Assessment General Assessment Hearing: mild [place] Skin Integrity: alvaro wrap to RLE, wound [...] Level of Function Prior Function Level of Lee: Independent with ADLs and functional transfers, Independent [...] deficits Perception Inattention/Neglect: A (more content not included)...[facility]01-13-2025 Note Attestation signed by Gabriel [...] meet criteria for admission to IPR: Assessment: Whitley fracture of the right tibial shaft and [...] Plan of Care: Patient with diagnosis of Whitley fracture of the right tibial shaft and [...] oral, TID wit (more content not included)... [facility]01-13-2025 NoteOccupational Therapy Occupational Therapy Evaluation [...] carryover General Assessment General Assessment Hearing: Mild [place] Skin Integrity: ALVARO wrap to RLE, DFU [...] LLE heel WB de (more content not included)...[facility]01-13-2025 NoteOrthopaedic Surgery Orthopaedic Surgery Progress [...] Rivas MD 09/25/24 7:02 AM Ortho Pager: [phone]. [facility]01-13-2025 Note [facility] Trauma Surgery [...] Value Ventricular Rate 82 Atrial Rate 82 [place] Interval 164 QRS DURATION 92 QT Interval 386 QTC CALCULATION(BAZETT) 450 P [place] 61 R-[place] 18 T Wave [place] 69 Impression Normal sinus rhythm Normal ECG [...] mary lou-colace an (more content not included)... [facility]01[facility]12-20[facility] NoteUn[facility] Vascular Surgery/Wound Care CONSULTATION Reason for Consult: Left foot ulcer Subjective History of Present Illness: Matty Garces is a 53 y.o. male with a PMH of DM, HTN, HF and recent cellulitis to [facility] . He is admitted for transverse [...] BID, ROMAIN Acevedo, 1 tablet at 09/24/24 8036 Social History Socioeconomic History Marital status: Spouse [...] rhythm. Pulmonary: Effort: Pulmonar (more content not included)...[facility]01-12-2025 NoteOrthopaedic Surgery Orthopaedic Surgery Progress [...] BRO MD 09/24/24 10:29 PM Ortho Pager: [phone]. Vincent Hospital01-12-2025 Note Patient: Matty Garces Procedure Summary Date: 09/24/24 Room / Location: [facility] OPERATING ROOM 05 / [facility] Operating Room Anesthesia Start: 1020 [...] preop) Hydration status: acceptable No notable events documented.[facility]01-12-2025 Note Airway Date/Time: 09/24/2024 10:35 AM Urgency: elective General Information and Staff Patient location during procedure: OR Anesthesiologist: Jeffery Casey MD Resident/MARINE FIRE FIGHTER/CAA: Kenneth Marina MD Performed: resident/MARINE FIRE FIGHTER/CAA Indications and Patient Condition Indications for airway [...] 1 Number of other approaches attempted: 0UnSt. Vincent Hospital 09-24-2024 NotePatient: Matty Garces Procedure Information Date/Time: 09/24/24 1000 Procedure: CLOSED INSERTION, INTRAMEDULLARY WENDY, TIBIA (Right: Leg Lower) Location: [facility] OPERATING ROOM 05 / [facility] Operating Room Surgeons: Sandrine Field [...] Value Ventricular Rate 97 Atrial Rate 97 [place] Interval 156 QRS DURATION 84 QT Interval 368 QTC CALCULATION(BAZETT) 467 P [place] 54 R-[place] 60 T Wave [place] 12 Impression Normal sinus rhythm Normal ECG [...] discussed with attending and resident. Additional Equipment RequestsCommunity [facility] Note Subjective Patient resting comfortably [...] wounds to LLE, wounds (more content not included)...[facility]01-12-2025 NotePhysical Therapy Name: Matty Garces Date of : 1970 Today's Date: 09/24/24 Pt is unable to be seen for therapy at this time secondary to Surgery today for fixation of frature. Will check back and complete therapy session as appropriate. Check No Charge Time attempted: 0759 Janet Lovelace PT, [facility]ENTERUnSt[facility]01-[facility]-2025 Note Orthopaedic Surgery Orthopaedic Surgery Progress [...] Rivas MD Orthopaedic Surgery, PGY-2 Ortho Pager [phone] 09/24/24 7:29 AM I am available via [employer] chat 6a-6p. May contact the on-call resident with any concerns via the Orthopaedic pager at any time.[facility]10-22-2024 Telephone encounter Note* Telephone Encounter - Nita Anthony - 07/04/2024 4:10 PM EDT left message regarding prescriptions earlier today and not being at pharmacy. I did call back and spoke to advising they were sent this afternoon. had mentioned Dr. Geiger was also going to start a Vitamin B to help boost energy in the morning. [facility] in [place]. [facility] [id number] Miscellaneous Notes* Telephone Encounter - Nita Anthony - 07/04/2024 4:10 PM EDT left message regarding prescriptions earlier today and not being at pharmacy. I did call back and spoke to advising they were sent this afternoon. had mentioned Dr. Geiger was also going to start a Vitamin B to help boost energy in the morning. [facility] in [place]. documented in this encounterPershing Memorial [id number] History of Present illness Narrative* Rubén Geiger [...] 1 mg, Oral, 2 times daily HYDROcodone-acetaminophen ([place]) 5-325 MG tablet hydrOXYzine pamoate (Vistaril) 25 [...] reflexes: Alycia's absent. Ankle clonus absent. Coordination Scpiht-qx-lkur, rapid alternating movements and gzqi-qb-lsbn normal bilaterally without dysmetria. Gait Normal casual, [...] Follow up 3 months. documented in this encounterPershing Memorial [id number] NotePROCEDURE: XR FOOT LT MIN 3 VIEWS [...] Electronically authenticated by: ALVINA CAICEDO Date: 2022-03-26 10:47[facility]06-15-2022 Hospital Discharge instructions Patient Education 02/25/2022 [...] Watch the hydrocele for any changes. Take iexm-ecp-fctkmjp and prescription medicines only as told by [...] 02/17/2011 Document Revised: 09/10/2018 Document Reviewed: 09/10/2018 [employer] [facility] [employer] Patient Education 2020 [employer]. Follow Up Care 01/28/2022 10:36:35 With:Mitchel DELGADO, CHINA Gregorio, URO Address: When: Unknown [facility] evaluation + Plan note No data available for this section [facility] evaluation noteNo assessment information available [facility] Work Phone: Evaluation note* Diagnosis [...] 2025 11:21amRight leg painnoneactiveAugus2024 11:21am [facility] Work Phone: Evaluation note* Diagnosis [...] this section [facility] reason for referral (narrative)No reason for referral information availableUniversity [facility]als [facility] Work Phone: Summary Purpose Family [...] May 11:42am Hospital Course Note MR#: [id number] [facility] Pt. Name: Matty Garces Admitted: 01/30/2019 Discharged: [...] and content) DATE CREATED AUTHOR 07/19/2019 [facility] DATE CREATED AUTHOR AUTHOR'S ORGANIZ ATION 02/27/2022 [facility] DATE CREATED AUTHOR AUTHOR'S ORGANIZ ATION 12/08/2022 [facility] DATE CREATED AUTHOR AUTHOR'S ORGANIZ ATION 12/03/2023 [facility] DATE CREATED AUTHOR AUTHOR'S ORGANIZ ATION 10/15/2024 [facility] DATE CREATED AUTHOR AUTHOR'S ORGANIZ ATION 06/23/2025 [facility] DATE CREATED AUTHOR AUTHOR'S ORGANIZ ATION 07/15/2025 [facility] EPIC Care Team (unrecognized sect ion and content) Team Status: Inactive Member Role Status Dates Trey Vallejo DPM MS Attending Provider Active Start: January 03, 2024 End: January 03, 2024Team MemberRelationshipSpecialtyStart DateEnd Date Venus Jaeger MD [address] [place] [address] PCP - GeneralFamily Medicine01/10/24Team MemberRelationshipSpecialtyStart DateEnd Date Venus Jaeger MD [address] [place] [address] PCP - GeneralFamily Medicine01/10/24Team MemberRelationshipSpecialtyStart DateEnd Date Venus Jaeger MD [address] [place] [facility] [address] PCP - GeneralFamily Medicine01/10/24Team MemberRelationshipSpecialtyStart DateEnd Date Venus Jaeger MD [address] [place] [facility] [address] PCP - GeneralFamily Medicine01/10/24 Team Status: Inactive Member Role Status Dates Trey Vallejo DPM MS Attending Provider Active Start: September 21, 2024 End: September 21, 2024Team MemberRelationshipSpecialtyStart DateEnd Venus Jaeger MD [address] [place] [facility] [address] PCP - GeneralFamily Medicine01/10/24Team MemberRelationshipSpecialtyStart DateEnd Venus Jaeger MD [address] [place] [facility] [address] PCP - GeneralFamily Medicine01/10/24Team MemberRelationshipSpecialtyStart DateEnd Date Venus Jaeger MD [address] [place] [facility] [address] PCP - GeneralFamily Medicine01/10/24Team MemberRelationshipSpecialtyStart DateEnd Date Venus Jaeger MD [address] [place] [facility] [address] PCP - GeneralFamily Medicine01/10/24Team MemberRelationshipSpecialtyStart DateEnd Date Venus Jaeger MD [address] [place] [address] PCP - [facility]01/10/24Team MemberRelationshipSpecialtyStart DateEnd Date Venus Jaeger MD PCP - [facility]01/10/24Team MemberRelationshipSpecialtyStart DateEnd Date Venus Jaeger MD PCP - [facility]01/10/24Team MemberRelationshipSpecialtyStart DateEnd Venus Jaeger MD PCP - [facility]01/10/24 Team Status: Active Member Role Status Lacey Jaeger MD Primary Care Provider Active Team Status: Inactive Member Role Status Lacey Jaeger MD Primary Care Provider Active Start: May 07, 2025 End: May 07, 2025JuDania Paulson ProviderActiveStart: May 07, 2025 End: May 07, 2025Team MemberRelationshipSpecialtyStart DateEnd Date Venus Jaeger MD PCP - [facility]01/10/24Team MemberRelationshipSpecialtyStart DateEnd Venus Jaeger MD PCP - [facility]01/10/24 Team Status: Inactive Member Role [...] DateEnd Date Venus Jaeger MD [address] [place] [phone] PCP - [facility]07/13/25Team MemberRelationshipSpecialtyStart Date End Date Venus Jaeger MD [address] [place] [phone] PCP - [facility]07/13/25 Goals (unrecognized section and content) [...] BE BASED ON THE PRIMARY CLINICAL RECORDS. [facility] [facility]. provides no warranty or guarantee of the accuracy or completeness of information in this document.
--- NOTE | 2025-08-21 09:40 | CM.NOTE ---
Rounds made with Dr. Kent, discussed plan of care with pt. Pt will have venous Doppler today and CT scan of R lower extremity. Pt will also have echo today, pt verbalizes understanding.
--- NOTE | 2025-08-21 09:45 | CT_ITS ---
The [address] [address] Patient Name: MATTY WADE MRN: [id number] date: 1970 Sex: M Assigned Patient Location: [place] Current Patient Location: [place] Accession/Order Number: [id number] Exam Date: 08/21/2025 10:20 Report Date: 08/21/2025 10:48 At the request of: MAG PRATT MD Procedure: CT abdomen pelvis wo con CT abdomen pelvis wo con 08/21/2025 10:24 AM SIGNS AND SYMPTOMS: femoral hernia?groin swelling TECHNIQUE: Multidetector ct axial images of the abdomen and pelvis were obtained without IV contrast. Multiplanar reformats were performed and reviewed to further define anatomy and possible pathology. CT was performed with one or more of the following dose reduction techniques: Automated exposure control, adjustment of the mA and/or kV according to patient size, or use of iterative reconstruction technique. COMPARISON: 01/04/2022. FINDINGS: Lower Chest: Within normal limits. ABDOMEN: Liver: Within normal limits. Bile Ducts: Normal caliber. Gallbladder: No calcified gallstones. Normal caliber wall. Pancreas: Within normal limits. Spleen: Within normal limits. Adrenals: Within normal limits. Kidneys: There is a 2 mm nonobstructing stone in the inferior pole of the right renal collecting system. Pelvis: Reproductive Organs: No pelvic masses. Ureters: Within normal limits. Bladder: Within normal limits. Bowel: Normal caliber. Mesenteric Lymph Nodes: No enlarged mesenteric lymph nodes. Peritoneum: No ascites or free air, no fluid collection. Vessels: Atherosclerotic changes are noted in the abdominal aorta. Retroperitoneum: Within normal limits. Abdominal Wall: There are mildly prominent inguinal lymph nodes, right greater than left. The largest on the right measures 2.4 x 1.6 cm in greatest dimension. Bones: Degenerative changes are noted in the thoracolumbar spine. Degenerative changes are noted in the hips and sacroiliac joints. CT/CT abdomen pelvis wo con IMPRESSION: No acute intra-abdominal pathology. No evidence of inguinal or retroperitoneal hematoma. There are mildly prominent inguinal lymph nodes, right greater than left. The largest on the right measures 2.4 x 1.6 cm in greatest dimension. Impression dictated by: Francis Irving M.D. 08/21/2025 10:48 AM Dictation Location: [place] [address] Electronically authenticated by: [id number] Y Date: 08/21/2025 10:48
--- NOTE | 2025-08-21 09:50 | CA_ITS ---
Patient Name: MATTY WADE MR#: [id number] : 1970 Exam Date: 08/21/2025 Ordering Doctor: MAG PRATT ECHOCARDIOGRAM REPORT PROCEDURE: CA ECHO DOPPLER COMPLETE INDICATIONS: R/O endocarditis, leg cellulitis COMPARISON: None. DESCRIPTION: COMPLETE ECHOCARDIOGRAM Real-time transthoracic echocardiography with 2D, M-mode, spectral and color flow Doppler performed. QUALITY: Technical quality was good. LEFT VENTRICLE: Normal chamber size. Borderline left ventricular hypertrophy. Global left ventricular systolic function is normal. Estimated left ventricular ejection fraction is 60-65%. LV EF: Normal left ventricular ejection fraction, (>55%). DIASTOLIC: Normal diastolic function. ATRIAL SEPTUM: LEFT ATRIUM: Normal chamber size. RIGHT ATRIUM: Normal chamber size. RIGHT VENTRICLE: Normal chamber size. Normal right ventricular systolic function. TRICUSPID VALVE: Normal mobility and thickness. No vegetations are present. No stenosis with trivial regurgitation. No evidence of pulmonary hypertension. The RVSP measures 19 mmHg. MITRAL VALVE: Normal mobility and thickness. No vegetations are present. No evidence of mitral valve stenosis. There is no mitral annular calcification. AORTIC VALVE: Normal trileaflet appearance. No visible sclerosis. Normal leaflet mobility. No vegetations are present. No evidence of aortic valve stenosis. No aortic regurgitation. AORTIC ROOT: Normal diameter and appearance. The aortic root measures 3.6 cm. The ascending aorta measures 2.7 cm. PULMONIC VALVE: Normal thickness and mobility. No stenosis. No regurgitation. No vegetations are present. PERICARDIUM: No evidence of pericardial effusion. IVC: Collapses with inspiration. The IVC measures 2.0 cm. PLEURA: CONCLUSION: 1. Normal ventricular size and systolic function. Estimated LVEF is 60-65%. 2. Normal diastolic function. 3. No significant valvular dysfunction. 4. Normal right-sided pressures. 5. No gross evidence of vegetation seen on this transthoracic study. Adult Echocardiography Procedure Report Left Ventricle LVEDD (3.7 - 5.6 cm): 5.17 cm LVESD (2.2 - 4.0 cm): 3.54 cm LVIVS thickness (0.6 - 1.2 cm): 1.13 cm LVPW thickness (0.5 - 1.0 cm): 0.86 cm e': 0.12 m/s E - e': 8.63 LVOT Max Gradient: 7.09 mm[Hg] LVOT Area (cm2): 1.33 m/s Peak Velocity (LVOT): 1.33 m/s Mean Velocity (LVOT): 0.92 m/s LVOT Diameter 2.12 cm Left Ventricular Ejection Fraction: 60-65 % Left Atrium LA Volume Index (2D A2C): 36.27 ml/m2 Left Atrium Systolic Dimension: 4.09 cm Mitral Valve MV E to A Ratio: 1.28 Mitral Valve A-Wave Peak Velocity: 0.79 m/s Mitral Valve E-Wave Peak Velocity: 1.02 m/s Right Ventricle RV Internal Diastolic Dimension: 3.88 cm Aorta AO Root Diam: 3.60 cm Ascending Ao Diam: 2.73 cm Aortic Valve AoV Area (Peak Adalberto): 2.82 cm2, 2.75 cm2 AoV Area (VTI): 2.60 cm2, 2.53 cm2 Peak Velocity(Antegrade Flow): 1.72 m/s, 1.62 m/s Peak Gradient(Antegrade Flow): 11.79 mm[Hg], 10.55 mm[Hg] Mean Velocity(Antegrade Flow): 1.25 m/s, 1.20 m/s Mean Gradient(Antegrade Flow): 6.99 mm[Hg], 6.39 mm[Hg] Velocity Time Integral: 35.82 cm, 34.09 cm Tricuspid Valve Peak Velocity (Regurgitant Flow): 1.62 m/s, 1.51 m/s, 2.02 m/s Pulmonic Valve Mean Gradient: 2.20 mm[Hg] Mean Velocity: 0.69 m/s Peak Velocity: 1.06 m/s, 1.09 m/s Peak Gradient: 4.49 mm[Hg], 4.73 mm[Hg] Right Atrium Right Atrium Systolic Pressure: 38.49 ml, 38.49 ml Dictated by: Ankit Cabrera M.D. on 08/21/2025 at 18:30 Approved by: Ankit Cabrera M.D. on 08/21/2025 at 18:34
--- NOTE | 2025-08-21 11:13 | PHOTOS ---
Left 2nd Toe Ulcer
--- NOTE | 2025-08-21 11:28 | PM.IMHP1 ---
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 Patient is poor historian so the history was limited however he states that over the last 2 days he started complaining of right lower extremity pain mainly on his right lower ankle that would shoot up to his right groin. He noticed areas of swelling and raised areas that was more painful than others. He does notice warmth and erythema in that area as well. He denies to me any fever chills or nausea or vomiting. In the ED, patient was afebrile with unremarkable vital signs. However he was in pain. His CBC showed leukocytosis with stable hemoglobin and platelets. His ESR was 31. His CMP was not remarkable, his CRP was 1.76. His CT abdomen pelvis showed mildly prominent inguinal lymph nodes right greater than left. X-ray of the foot showed soft tissue swelling along the great toe suspicious for cellulitis, bony destruction noted in the interphalangeal of the great toe suspicious for osteomyelitis. 1.5 cm linear radiodense foreign body in the interspace between the 2nd and 3rd metatarsals with diffuse soft tissue swelling. Tibia/fibula showing healing fracture of distal tibia and fibula without hardware complication. No osteolytic or bony destruction to suggest osteo. Patient received 1 dose of vancomycin IV 2 g as well as 1 dose of clindamycin in the ED, he is to be admitted under hospitalist service for further workup and management Review of Systems ROS Status of ROS 10 or more systems reviewed and unremarkable except as noted in history and below [facility] Medical History DVT (deep venous thrombosis) ?I82.409 - Acute embolism and thrombosis of unspecified deep veins of unspecified lower extremity (ICD-10) Cellulitis of right leg ?L03.115 - Cellulitis of right lower limb (ICD-10) Pain in right leg ?M79.604 - Pain in right leg (ICD-10) Type 2 diabetes mellitus with foot ulcer ?E11.621 - Type 2 diabetes mellitus with foot ulcer (ICD-10) ?L97.509 - Non-pressure chronic ulcer of other part of unspecified foot with unspecified severity (ICD-10) Type 2 diabetes mellitus with diabetic polyneuropathy ?E11.42 - Type 2 diabetes mellitus with diabetic polyneuropathy (ICD-10) Acute hypercapnic respiratory failure ?J96.02 - Acute respiratory failure with hypercapnia (ICD-10) Foot ulcer ?L97.509 - Non-pressure chronic ulcer of other part of unspecified foot with unspecified severity (ICD-10) Cellulitis of left leg ?L03.116 - Cellulitis of left lower limb (ICD-10) Chronic foot ulcer ?L97.509 - Non-pressure chronic ulcer of other part of unspecified foot with unspecified severity (ICD-10) Chronic pain syndrome ?G89.4 - Chronic pain syndrome (ICD-10) Lumbar spondylosis ?M47.816 - Spondylosis without myelopathy or radiculopathy, lumbar region (ICD-10) Peripheral neuropathy ?G62.9 - Polyneuropathy, unspecified (ICD-10) Type 2 diabetes mellitus ?E11.9 - Type 2 diabetes mellitus without complications (ICD-10) Closed fracture of left distal fibula ?S82.832A - Other fracture of upper and lower end of left fibula, initial encounter for closed fracture (ICD-10) Ankle fracture ?S82.899A - Other fracture of unspecified lower leg, initial encounter for closed fracture (ICD-10) Prolonged emergence from general anesthesia ?T88.59XA - Other complications of anesthesia, initial encounter (ICD-10) Pain management contract signed ?Z02.89 - Encounter for other administrative examinations (ICD-10) Back pain ?M54.9 - Dorsalgia, unspecified (ICD-10) PTSD (post-traumatic stress disorder) ?F43.10 - Post-traumatic stress disorder, unspecified (ICD-10) Depression ?F32.A - Depression, unspecified (ICD-10) Dysphagia ?R13.10 - Dysphagia, unspecified (ICD-10) Uvulitis ?K12.2 - Cellulitis and abscess of mouth (ICD-10) Insomnia ?G47.00 - Insomnia, unspecified (ICD-10) Migraine ?G43.909 - Migraine, unspecified, not intractable, without status migrainosus (ICD-10) GERD (gastroesophageal reflux disease) ?K21.9 - Gastro-esophageal reflux disease without esophagitis (ICD-10) Dyspnea on exertion ?R06.09 - Other forms of dyspnea (ICD-10) Heart valve disorder ?I38 - Endocarditis, valve unspecified (ICD-10) Hypoglycemia ?E16.2 - Hypoglycemia, unspecified (ICD-10) Delayed recovery from anesthesia Chronic foot ulcer ?L97.509 - Non-pressure chronic ulcer of other part of unspecified foot with unspecified severity (ICD-10) 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 - Central serous chorioretinopathy, unspecified eye (ICD-10) Chronic pain ?G89.29 - Other chronic pain (ICD-10) Narcolepsy ?G47.419 - 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) Anxiety ?F41.9 - Anxiety disorder, unspecified (ICD-10) Upper back pain ?M54.9 - Dorsalgia, unspecified (ICD-10) Low back pain ?M54.50 - Low back pain, unspecified (ICD-10) TMJ (dislocation of temporomandibular joint) ?S03.00XA - Dislocation of jaw, unspecified side, initial encounter (ICD-10) Obesity ?E66.9 - Obesity, unspecified (ICD-10) Sleep apnea ?G47.30 - Sleep apnea, unspecified (ICD-10) Hypertension ?I10 - Essential (primary) hypertension (ICD-10) Surgical History H/O foot surgery ?Z98.890 - Other specified postprocedural states (ICD-10) H/O radiofrequency ablation (RFA) of nerve of lumbar spine ?Z98.890 - Other specified postprocedural states (ICD-10) History of fusion of cervical spine ?Z98.1 - Arthrodesis status (ICD-10) H/O inguinal hernia repair ?Z98.890 - Other specified postprocedural states (ICD-10) ?Z87.19 - Personal history of other diseases of the digestive system (ICD-10) H/O repair of rotator cuff ?Z98.890 - Other specified postprocedural states (ICD-10) History of uvulopalatopharyngoplasty ?Z98.890 - Other specified postprocedural states (ICD-10) Family History Father Family history of CHF (congestive heart failure) Family history of diabetes mellitus Family history of hypertension Grandfather Family history of myocardial infarction Family history of stroke Grandmother Family history of stroke Social History (Updated 08/21/25 @ 09:49 by Parvin Merlos) Within the past year, how often did you have a drink containing alcohol: 2-4 times a month Within the past year, how many standard drinks containing alcohol did you have on a typical day: 1 or 2 Within the past year, how often did you have six or more drinks on one occasion: less than monthly Total score: 1 Score interpretation: A score less than 4 is consistent with normal alcohol consumption. Smoking status: Never smoker Non-prescribed substance use: cannabis (any form) Previous occupational history: unemployed Highest level of school completed/degree received: high school graduate Are you now , , , , never or living with a partner: In a typical week, how many times do you talk on the telephone with family, friends, or neighbors: twice per week How often do you get together with friends or relatives: twice per week How often do you attend cheondoism or christian services: never Do you belong to any clubs or organizations such as cheondoism groups unions, fraternal or athletic groups, or school groups: no Total score: 2 Score interpretation: A score of greater than or equal to 2 indicates the lowest level of social isolation. Little interest or pleasure in doing things: not at all Feeling down, depressed, or hopeless: not at all Feel stressed/tense/nervous/anxious/difficulty sleeping: not at all Do you think of yourself as: straight/heterosexual Gender Identity: male Meds Home Medications and Allergies Home Medications ?Medication ?Instructions ?Recorded ?Confirmed ?Type carvedilol 25 mg tablet 25 mg PO BID 06/14/23 08/21/25 History furosemide 20 mg tablet 20 mg PO DAILY 06/14/23 08/21/25 History gabapentin 600 mg tablet 600 mg PO DAILY 06/14/23 08/21/25 History pantoprazole 40 mg tablet,delayed 40 mg PO DAILY 06/14/23 08/21/25 History release simvastatin 20 mg tablet 20 mg PO .qhs 06/14/23 08/21/25 History modafinil 200 mg tablet 200 mg PO BID 09/04/23 08/21/25 History potassium chloride 10 mEq 10 meq PO Q12H 09/04/23 08/21/25 History tablet,extended release amantadine HCl 100 mg tablet 100 mg PO BID 12/28/23 08/21/25 History cholecalciferol (vitamin D3) 125 6,000 unit PO DAILY 12/28/23 06/16/25 History mcg (5,000 unit) capsule multivitamin (Daily Multi-Vitamin 1 tab PO DAILY 12/28/23 08/21/25 History tablet) biotin 10 mg tablet 10 mg PO DAILY 09/19/24 08/21/25 History citalopram 40 mg tablet 40 mg PO DAILY 09/20/24 08/21/25 History testosterone cypionate 200 mg/mL 300 mg IM Q14D 09/20/24 08/21/25 History intramuscular oil aspirin 81 mg tablet,delayed 81 mg PO DAILY 03/06/25 08/21/25 History release (Adult Low Dose Aspirin) meclizine 25 mg tablet 25 mg PO DAILY PRN dizziness 03/06/25 06/16/25 History sildenafil 25 mg tablet 25 mg PO Q24H 03/06/25 06/16/25 History sodium, calcium, magnesium, 4.5 g PO HS 03/06/25 08/21/25 History potassium oxybates 0.5 gram/mL oral soln (Xywav) sumatriptan succinate 100 mg 100 mg PO Q2H PRN migraine headache 03/06/25 06/16/25 History tablet (Imitrex) apixaban 5 mg tablet (Eliquis) 5 mg PO BID #60 tabs 06/21/25 08/21/25 Rx doxazosin 8 mg tablet 4 mg (1/2 x 8 mg) PO DAILY #0 tabs 06/21/25 08/21/25 Rx Allergies Allergy/AdvReac Type Severity Reaction Status Date / Time No Known Drug Allergies Allergy Verified 08/21/25 03:21 Exam Narrative Exam Narrative: Common normals: average body habitus, oriented x3, no limitations, healthy appearing, alert and well nourished [facility] Common normals: normocephalic and head/scalp atraumatic Eye Common normals: EOMs intact bilaterally and conjunctivae normal Respiratory Common normals: normal respiratory effort, no retractions, no use of accessory muscles and clear to auscultation bilaterally Cardio Common normals: regular rate, regular rhythm, S1 normal heart sound and S2 normal heart sound Abdomen: Soft, nontender, no organomegaly, no signs of acute abdomen Extremities; there is an ulcer on the plantar surface just below the hallux, patient does have erythema and tenderness with warmth in his right foot with multiple raised spots with induration around his medial malleolus and 2 cm above that, he does have good bilateral palpable DP and PT in both feet. No signs of acute limb ischemia as the patient does not have any paresthesia or pain out of proportion or even cold temperature on both. 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 Neuro: Oriented x 3, following commands, no focal deficits Constitutional Vital Signs, click to edit/add: Last Vital Signs Temp 98.0 F 08/21/25 11:25 Pulse 83 08/21/25 11:25 Resp 18 08/21/25 11:25 BP 147/76 H 08/21/25 11:25 Pulse Ox 94 L 08/21/25 11:25 O2 Del Method Room Air 08/21/25 11:25 Internal Medicine - H&P: Reslt Labs Labs: Short CBC 08/21/25 Range/Units 04:02 WBC 12.3 H (4.0-11.0) 10^3/uL Hgb 13.0 L (14.0-18.0) g/dL Hct 39.2 L (42.0-54.0) % Plt Count 127 L (150-450) 10^3/uL BMP 08/21/25 04:02 Sodium 136 Potassium 3.9 Chloride 101 Carbon Dioxide 31.3 BUN 15.0 Creatinine 1.12 Glucose 108 H Calcium 9.0 Assessment and Plan Assessment and Plan (1) Cellulitis of leg, right: (2) Pre-diabetes: (3) Peripheral neuropathy: Qualifiers: Peripheral neuropathy type: polyneuropathy, other Qualified Code(s): G62.89 - Other specified polyneuropathies (4) Lumbar spondylosis: (5) DVT (deep venous thrombosis): Qualifiers: Affected thrombotic vein of extremity: unspecified vein of extremity Chronicity: unspecified DVT location: lower extremity Laterality: left Qualified Code(s): I82.402 - Acute embolism and thrombosis of unspecified deep veins of left lower extremity Plan Right foot osteomyelitis No history of diabetes, however does have a history of recurrent skin/soft tissue infections Rule out possible hardware complication even though less likely Ruling out PVD - Admit patient to medical floor with telemetry - Start IV vancomycin and IV ertapenem, to be dosed by pharmacy - Obtain CT right lower leg to better delineate the soft tissue in that area - I consulted podiatry and orthopedics - Obtain venous Doppler and arterial Doppler to rule out any PAD -IV morphine 2 mg Q4 hourly as needed for pain as well as Tylenol 650 mg p.o. Q6hrs as needed for pain 1-01/20 -IV Compazine for as needed nausea and vomiting -Obtain A1c and lipid panel -I started the patient LR 100 mL/h for total of 1 L - I reconciled the patient's medication including his p.o. anticoagulation Eliquis 5 mg twice daily and aspirin 81 mg p.o. daily - Full code - GI prophylaxis addressed - Obtain echo and I discussed the plan with the patient in detail. Answered all his questions.
[2025-08-21 11:53] LABS: Cholesterol 167 mg/dL (<=200); HDL Cholesterol 46 mg/dL (40-60); Triglycerides 101 mg/dL (<=150); VLDL CHOLESTEROL 20.2 mg/dL
[2025-08-21 12:42] LABS: Lactate/Lactic Acid 0.6 mmol/L (0.4-2.0)
--- NOTE | 2025-08-21 12:44 | CT_ITS ---
The [address] [address] Patient Name: MATTY WADE MRN: [id number] date: 1970 Sex: M Assigned Patient Location: [place] Current Patient Location: [place] Accession/Order Number: [id number] Exam Date: 08/21/2025 12:36 Report Date: 08/21/2025 13:19 At the request of: MAG PRATT MD Procedure: CT lower leg RT wo con CT lower leg RT wo con 08/21/2025 12:44 PM SIGNS AND SYMPTOMS: right lower leg cellulitis, recent orif TECHNIQUE: Multidetector CT axial slices of the right lower leg without IV contrast. Multiplanar reformats were performed and viewed on a separate workstation and reviewed to further define anatomy and possible pathology. CT was performed with one or more of the following dose reduction techniques: Automated exposure control, adjustment of the mA and/or kV according to patient size, or use of iterative reconstruction technique. COMPARISON: 08/21/2025 FINDINGS: There is intramedullary madhu fixation of a fracture of the distal shaft of the tibia with incomplete healing. Lucency surrounds the distal aspect of the intramedullary madhu suggesting hardware loosening. There is periosteal new bone formation similar to the prior study. There is a healing fracture of the distal shaft of the fibula maintains incompletely healed. No osteolytic or bony destructive process is noted to suggest osteomyelitis. The ankle mortise is preserved. Bony destructive changes are noted in the interphalangeal joint of the great toe with narrowing of the first metatarsophalangeal joint. A linear radiodense foreign body is noted along the interspace between the second and third metatarsals. There is diffuse soft tissue swelling. No definitive evidence of abscess. Prepatellar soft tissue swelling is noted. CT/CT lower leg RT wo con IMPRESSION: There is intramedullary madhu fixation of a fracture of the distal shaft of the tibia with incomplete healing. Lucency surrounds the distal aspect of the intramedullary madhu suggesting hardware loosening. There is a healing fracture of the distal shaft of the fibula maintains incompletely healed. No osteolytic or bony destructive process is noted to suggest osteomyelitis. There is diffuse soft tissue swelling. No definitive evidence of abscess. Bony destructive changes are noted in the interphalangeal joint of the great toe with narrowing of the first metatarsophalangeal joint. This is similar to the prior exam. A linear radiodense foreign body is noted along the interspace between the second and third metatarsals. This is unchanged. Impression dictated by: Francis Irving M.D. 08/21/2025 1:19 PM Dictation Location: [place] [address] Electronically authenticated by: [id number] Y Date: 08/21/2025 13:19
--- NOTE | 2025-08-21 13:41 | PM.CN ---
Consult Note: [facility] Data of Consult Consult date: 08/21/25 Requesting Physician: Bonnie Ernandez MD Primary Care Provider: Caden Mendez MD Consult Narrative Reason for consult: Right diabetic foot infection Narrative: Patient is a 54-year-old male who is well-known to my practice and has been most recently being seen in the wound center for ongoing left foot issues. He underwent left hallux amputation for osteomyelitis on 06/20/2025 and has been slowly recovering from that procedure. He came into the emergency department due to acute onset right lower extremity pain which spans from the right forefoot to the groin. Patient relates that the most painful area in his right lower extremity is just above his right ankle near his fracture site. Patient sustained a midshaft tibia fracture which was treated with intramedullary nailing in September 2024 and reportedly has not completely healed. He also has recently developed right plantar foot ulcer subfirst metatarsal head. He has had nonhealing ulcerations to this foot in the past as well and underwent: right 1st metatarsal phalangeal joint cheilectomy, hallux interphalangeal joint arthroplasty, application of allogenic skin substitute and total contact cast on 01/03/24. He eventually went on to heal this ulceration which was located on the plantar aspect of the hallux. He now has a ulcer on the plantar forefoot subfirst metatarsal head. Upon admission x-rays were read as possible destructive changes at the hallux IPJ and This has progressed with the prior exam. The prior exam in our PACs must have been the post op xray on 01/03/24. Upon admission he was hemodynamically stable with mild leukocytosis of 12,300 and mild elevation in ESR: 31 and CRP 1.76. cc:: CC: Bonnie Ernandez MD Review of Systems ROS Status of ROS 10 or more systems reviewed and unremarkable except as noted in history and below [facility] Medical History DVT (deep venous thrombosis) ?I82.409 - Acute embolism and thrombosis of unspecified deep veins of unspecified lower extremity (ICD-10) Cellulitis of right leg ?L03.115 - Cellulitis of right lower limb (ICD-10) Pain in right leg ?M79.604 - Pain in right leg (ICD-10) Type 2 diabetes mellitus with foot ulcer ?E11.621 - Type 2 diabetes mellitus with foot ulcer (ICD-10) ?L97.509 - Non-pressure chronic ulcer of other part of unspecified foot with unspecified severity (ICD-10) Type 2 diabetes mellitus with diabetic polyneuropathy ?E11.42 - Type 2 diabetes mellitus with diabetic polyneuropathy (ICD-10) Acute hypercapnic respiratory failure ?J96.02 - Acute respiratory failure with hypercapnia (ICD-10) Foot ulcer ?L97.509 - Non-pressure chronic ulcer of other part of unspecified foot with unspecified severity (ICD-10) Cellulitis of left leg ?L03.116 - Cellulitis of left lower limb (ICD-10) Chronic foot ulcer ?L97.509 - Non-pressure chronic ulcer of other part of unspecified foot with unspecified severity (ICD-10) Chronic pain syndrome ?G89.4 - Chronic pain syndrome (ICD-10) Lumbar spondylosis ?M47.816 - Spondylosis without myelopathy or radiculopathy, lumbar region (ICD-10) Peripheral neuropathy ?G62.9 - Polyneuropathy, unspecified (ICD-10) Type 2 diabetes mellitus ?E11.9 - Type 2 diabetes mellitus without complications (ICD-10) Closed fracture of left distal fibula ?S82.832A - Other fracture of upper and lower end of left fibula, initial encounter for closed fracture (ICD-10) Ankle fracture ?S82.899A - Other fracture of unspecified lower leg, initial encounter for closed fracture (ICD-10) Prolonged emergence from general anesthesia ?T88.59XA - Other complications of anesthesia, initial encounter (ICD-10) Pain management contract signed ?Z02.89 - Encounter for other administrative examinations (ICD-10) Back pain ?M54.9 - Dorsalgia, unspecified (ICD-10) PTSD (post-traumatic stress disorder) ?F43.10 - Post-traumatic stress disorder, unspecified (ICD-10) Depression ?F32.A - Depression, unspecified (ICD-10) Dysphagia ?R13.10 - Dysphagia, unspecified (ICD-10) Uvulitis ?K12.2 - Cellulitis and abscess of mouth (ICD-10) Insomnia ?G47.00 - Insomnia, unspecified (ICD-10) Migraine ?G43.909 - Migraine, unspecified, not intractable, without status migrainosus (ICD-10) GERD (gastroesophageal reflux disease) ?K21.9 - Gastro-esophageal reflux disease without esophagitis (ICD-10) Dyspnea on exertion ?R06.09 - Other forms of dyspnea (ICD-10) Heart valve disorder ?I38 - Endocarditis, valve unspecified (ICD-10) Hypoglycemia ?E16.2 - Hypoglycemia, unspecified (ICD-10) Delayed recovery from anesthesia Chronic foot ulcer ?L97.509 - Non-pressure chronic ulcer of other part of unspecified foot with unspecified severity (ICD-10) 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 - Central serous chorioretinopathy, unspecified eye (ICD-10) Chronic pain ?G89.29 - Other chronic pain (ICD-10) Narcolepsy ?G47.419 - 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) Anxiety ?F41.9 - Anxiety disorder, unspecified (ICD-10) Upper back pain ?M54.9 - Dorsalgia, unspecified (ICD-10) Low back pain ?M54.50 - Low back pain, unspecified (ICD-10) TMJ (dislocation of temporomandibular joint) ?S03.00XA - Dislocation of jaw, unspecified side, initial encounter (ICD-10) Obesity ?E66.9 - Obesity, unspecified (ICD-10) Sleep apnea ?G47.30 - Sleep apnea, unspecified (ICD-10) Hypertension ?I10 - Essential (primary) hypertension (ICD-10) Surgical History H/O foot surgery ?Z98.890 - Other specified postprocedural states (ICD-10) H/O radiofrequency ablation (RFA) of nerve of lumbar spine ?Z98.890 - Other specified postprocedural states (ICD-10) History of fusion of cervical spine ?Z98.1 - Arthrodesis status (ICD-10) H/O inguinal hernia repair ?Z98.890 - Other specified postprocedural states (ICD-10) ?Z87.19 - Personal history of other diseases of the digestive system (ICD-10) H/O repair of rotator cuff ?Z98.890 - Other specified postprocedural states (ICD-10) History of uvulopalatopharyngoplasty ?Z98.890 - Other specified postprocedural states (ICD-10) Family History Father Family history of CHF (congestive heart failure) Family history of diabetes mellitus Family history of hypertension Grandfather Family history of myocardial infarction Family history of stroke Grandmother Family history of stroke Social History (Updated 08/21/25 @ 09:49 by Parvin Merlos) Within the past year, how often did you have a drink containing alcohol: 2-4 times a month Within the past year, how many standard drinks containing alcohol did you have on a typical day: 1 or 2 Within the past year, how often did you have six or more drinks on one occasion: less than monthly Total score: 1 Score interpretation: A score less than 4 is consistent with normal alcohol consumption. Smoking status: Never smoker Non-prescribed substance use: cannabis (any form) Previous occupational history: unemployed Highest level of school completed/degree received: high school graduate Are you now , , , , never or living with a partner: In a typical week, how many times do you talk on the telephone with family, friends, or neighbors: twice per week How often do you get together with friends or relatives: twice per week How often do you attend adventism or latter-day services: never Do you belong to any clubs or organizations such as adventism groups unions, fraternal or athletic groups, or school groups: no Total score: 2 Score interpretation: A score of greater than or equal to 2 indicates the lowest level of social isolation. Little interest or pleasure in doing things: not at all Feeling down, depressed, or hopeless: not at all Feel stressed/tense/nervous/anxious/difficulty sleeping: not at all Do you think of yourself as: straight/heterosexual Gender Identity: male Meds Home Medications and Allergies Home Medications ?Medication ?Instructions ?Recorded ?Confirmed ?Type carvedilol 25 mg tablet 25 mg PO BID 06/14/23 08/21/25 History furosemide 20 mg tablet 20 mg PO DAILY 06/14/23 08/21/25 History gabapentin 600 mg tablet 600 mg PO DAILY 06/14/23 08/21/25 History pantoprazole 40 mg tablet,delayed 40 mg PO DAILY 06/14/23 08/21/25 History release simvastatin 20 mg tablet 20 mg PO .qhs 06/14/23 08/21/25 History modafinil 200 mg tablet 200 mg PO BID 09/04/23 08/21/25 History potassium chloride 10 mEq 10 meq PO Q12H 09/04/23 08/21/25 History tablet,extended release amantadine HCl 100 mg tablet 100 mg PO BID 12/28/23 08/21/25 History cholecalciferol (vitamin D3) 125 6,000 unit PO DAILY 12/28/23 06/16/25 History mcg (5,000 unit) capsule multivitamin (Daily Multi-Vitamin 1 tab PO DAILY 12/28/23 08/21/25 History tablet) biotin 10 mg tablet 10 mg PO DAILY 09/19/24 08/21/25 History citalopram 40 mg tablet 40 mg PO DAILY 09/20/24 08/21/25 History testosterone cypionate 200 mg/mL 300 mg IM Q14D 09/20/24 08/21/25 History intramuscular oil aspirin 81 mg tablet,delayed 81 mg PO DAILY 03/06/25 08/21/25 History release (Adult Low Dose Aspirin) meclizine 25 mg tablet 25 mg PO DAILY PRN dizziness 03/06/25 06/16/25 History sildenafil 25 mg tablet 25 mg PO Q24H 03/06/25 06/16/25 History sodium, calcium, magnesium, 4.5 g PO HS 03/06/25 08/21/25 History potassium oxybates 0.5 gram/mL oral soln (Xywav) sumatriptan succinate 100 mg 100 mg PO Q2H PRN migraine headache 03/06/25 06/16/25 History tablet (Imitrex) apixaban 5 mg tablet (Eliquis) 5 mg PO BID #60 tabs 06/21/25 08/21/25 Rx doxazosin 8 mg tablet 4 mg (1/2 x 8 mg) PO DAILY #0 tabs 06/21/25 08/21/25 Rx Allergies Allergy/AdvReac Type Severity Reaction Status Date / Time No Known Drug Allergies Allergy Verified 08/21/25 03:21 Exam Narrative Exam Narrative: Skin: Right foot has ulceration subfirst metatarsal head which measures 0.3 x 0.5 cm with significant periwound hyperkeratosis and an adjacent skin blister. There is erythema noted of the entire foot and extending proximally. Left foot has no signs of infection with partial-thickness skin ulcer of right foot near his amputation site as well as the second toe which are stable Vascular: Palpable pedal pulses. Absent digital hair growth. There is asymmetric swelling of the right lower extremity including the dorsal foot Neuro: Absent protective and vibratory sensation MSK: There is no pain on palpation to the right foot. There is no pain with active or passive range of motion of the right great toe at the metatarsal phalangeal joint or intra phalangeal joint. Pain on palpation at right midshaft tibia Constitutional Vital Signs, click to edit/add: Last Vital Signs Temp 98.0 F 08/21/25 11:25 Pulse 83 08/21/25 11:25 Resp 18 08/21/25 11:25 BP 147/76 H 08/21/25 11:25 Pulse Ox 94 L 08/21/25 11:25 O2 Del Method Room Air 08/21/25 11:25 Results Labs Labs: Short CBC 08/21/25 Range/Units 04:02 WBC 12.3 H (4.0-11.0) 10^3/uL Hgb 13.0 L (14.0-18.0) g/dL Hct 39.2 L (42.0-54.0) % Plt Count 127 L (150-450) 10^3/uL BMP 08/21/25 04:02 Sodium 136 Potassium 3.9 Chloride 101 Carbon Dioxide 31.3 BUN 15.0 Creatinine 1.12 Glucose 108 H Calcium 9.0 Assessment and Plan Assessment and Plan (1) Cellulitis of leg, right: (2) Pre-diabetes: (3) Peripheral neuropathy: Qualifiers: Peripheral neuropathy type: polyneuropathy, other Qualified Code(s): G62.89 - Other specified polyneuropathies (4) Lumbar spondylosis: (5) DVT (deep venous thrombosis): Qualifiers: Affected thrombotic vein of extremity: unspecified vein of extremity Chronicity: unspecified DVT location: lower extremity Laterality: left Qualified Code(s): I82.402 - Acute embolism and thrombosis of unspecified deep veins of left lower extremity (6) Cutaneous abscess of right foot: Assessment and Plan: See operative/procedure report for details (7) Ulcer of right foot with fat layer exposed: Plan Patient was seen and evaluated. Patient education provided and all questions answered to his satisfaction. I discussed the case with Dr. Kent, hospitalist as well. The x-ray changes at his hallux IPJ may also be consistent with postsurgical changes and given his current clinical status I believe this to be more likely the case. The ulceration however may be the source of infection and the mild elevation in inflammatory markers are more consistent with cellulitis. Of concern however he does have a nonunion of midshaft tibia fracture which was fixated with intramedullary nail in [place]. Patient has not followed up with his surgeon however did see Dr. Coats several months ago. Talking with Mr. Garces it appears that he has failed to follow-up with him as well. Mr. Garces does have profound peripheral neuropathy which is ultimately the source in addition to noncompliance of multiple recurrent foot ulcerations. Bedside I&D was performed and cultures were obtained (see operative/procedure note for details). I recommend daily dressing changes with dry gauze, ABD, Kerlix. Please call with any updates or concerns. Continued medical management for now no additional surgical intervention planned per podiatry
[2025-08-21] MEDS: ERTAPENEM SODIUM 1 GM in 0.9 % SODIUM CHLORIDE 50 ML IV (13:47)
[2025-08-21] MEDS: MORPHINE SULFATE 2 MG/ML SYRINGE 1 MG IV ×2 (13:54→20:32)
--- NOTE | 2025-08-21 14:35 | PM.ORONB ---
Brief Operative Note Date of procedure: 08/21/25 Pre-op diagnosis general: Skin abscess, cellulitis and foot ulcer, right Post-op diagnosis: same as pre-op Procedure: Procedure performed: Incision and drainage of skin abscess and debridement of nonviable tissue, right foot Indications for procedure: See consultation note for details Intraoperative findings: There was a small but full-thickness ulceration noted at the plantar aspect of the right forefoot subfirst metatarsal head with periwound hyperkeratosis and superficial abscess which communicated to the ulceration. No deep soft tissue such as tendon or capsule or bone exposure. There is no pain on proportion and no pain with range of motion of the first MPJ or IPJ. Postdebridement measurements 2.5 x 1.2 x 0.2 cm Procedure in detail: Patient was identified in his hospital room at bedside and the correct side and site were identified and consent was obtained. No anesthesia was necessary due to profound peripheral neuropathy. In a clean environment, a sterile ring curette was utilized to excise all nonviable soft tissue down to and including fat and fascia. It was noted that the fluid-filled lesion medially adjacent to the ulcer communicated and therefore the skin bridge was also excised and the skin overlying the lesion/blister was also removed. Sanguinous drainage was noted and a culture swab was obtained for specimen to be sent to microbiology. Hemostasis was controlled on the field and a dry sterile dressing consisting of 4 x 4 gauze, ABD and Curlex were applied. Patient tolerated the procedure well. Anesthesia: none Surgeon: Trey Vallejo Estimated blood loss (mL): 10 Pathology: other (soft tissue swab to be sent to microbiology) Condition: stable Disposition: floor
[2025-08-21] MEDS: CARVEDILOL 25 MG TABLET PO (20:27)
[2025-08-21] MEDS: APIXABAN 5 MG TABLET PO (20:27)
[2025-08-21] MEDS: PANTOPRAZOLE SODIUM 40 MG TABLET.DR PO (20:27)
[2025-08-21] MEDS: VANCOMYCIN HCL 1,500 MG in 0.9 % SODIUM CHLORIDE 500 ML 250 MG IV (20:28)
[2025-08-21] MEDS: ATORVASTATIN CALCIUM 10 MG TABLET PO (21:54)
[2025-08-22] VITALS (17 sets, daily range): BP systolic 118–142; BP diastolic 71–88; PULSE 61–94; TEMP 36.3–36.9; O2SAT 93–97
[2025-08-22 05:55] LABS: Hematocrit 41.3 % (42.0-54.0); Hemoglobin 13.5 g/dL (14.0-18.0); Immature Granulocytes Abs Auto 0.05 10^3/uL (0.00-0.03); Immature Granulocytes Pct Auto 0.7 % (0.0-0.5); Lymphocytes Absolute Auto 0.8 10^3/uL (1.2-3.8); Mean Corpuscular HGB Conc 32.7 g/dL (29.9-35.2); Mean Corpuscular Hemoglobin 27.9 pg (25.9-34.0); Mean Corpuscular Volume 85.3 fL (80.0-94.0); Platelet Count 130 10^3/uL (150-450); Red Blood Count 4.84 10^6/uL (4.70-6.10); White Blood Count 7.5 10^3/uL (4.0-11.0)
[2025-08-22 06:09] LABS: Alanine Aminotransferase 19 U/L (16-63); Albumin Globulin Ratio 0.9; Albumin Level 3.4 g/dL (3.4-5.0); Alkaline Phosphatase 186 U/L (46-116); Anion Gap 4.6; Aspartate Amino Transferase 11 U/L (15-37); Blood Urea Nitrogen 10.0 mg/dL (7.0-18.0); Calcium 9.6 mg/dL (8.5-10.1); Carbon Dioxide 35.4 mmol/L (21.0-32.0); Chloride 105 mmol/L (98-107); Estimated GFR (African America >60 (>=60 mL/min/1.73m^2); Estimated GFR (Non-African Ame >60 (>=60 mL/min/1.73m^2); Globulin 4.0 g/dL; Glucose 117 mg/dL (74-106); Magnesium 2.1 mg/dL (1.8-2.4); Potassium 4.0 mmol/L (3.5-5.1); Sodium 141 mmol/L (136-145); Total Protein 7.4 g/dL (6.4-8.2)
[2025-08-22] MEDS: VANCOMYCIN HCL 1,500 MG in 0.9 % SODIUM CHLORIDE 500 ML 250 MG IV ×2 (09:55→22:11)
[2025-08-22] MEDS: PANTOPRAZOLE SODIUM 40 MG TABLET.DR PO ×2 (09:57→22:03)
[2025-08-22] MEDS: GABAPENTIN 300 MG CAPSULE 600 MG PO ×2 (09:57→13:39)
[2025-08-22] MEDS: MODAFINIL 100 MG TABLET 200 MG PO ×2 (09:57→13:39)
[2025-08-22] MEDS: MULTIVITAMIN TABLET 1 TAB PO (09:57)
[2025-08-22] MEDS: CITALOPRAM HYDROBROMIDE 20 MG TABLET 40 MG PO (09:57)
[2025-08-22] MEDS: ASPIRIN 81 MG TABLET.DR PO (09:57)
[2025-08-22] MEDS: CARVEDILOL 25 MG TABLET PO ×2 (09:57→22:03)
[2025-08-22] MEDS: AMANTADINE HCL 100 MG CAPSULE PO ×2 (09:57→13:39)
[2025-08-22] MEDS: APIXABAN 5 MG TABLET PO ×2 (09:57→22:03)
[2025-08-22] MEDS: COLLAGENASE CLOSTRIDIUM HIST. 250 UNITS/GM 30 GRAM TUBE 1 APPLIC TOPICAL (09:58)
[2025-08-22] MEDS: MORPHINE SULFATE 2 MG/ML SYRINGE 1 MG IV ×2 (10:01→13:40)
--- NOTE | 2025-08-22 10:20 | CM.NOTE ---
Rounds made with Dr. Kent, discussed plan of care with pt. No discharge today, continue IV antibiotics and wound care as ordered. Ortho will consult with pt 08/23.
--- NOTE | 2025-08-22 12:18 | PM.IMPN1 ---
Progress Note: A&P Assessment and Plan (1) Cellulitis of leg, right: (2) Pre-diabetes: (3) Peripheral neuropathy: Qualifiers: Peripheral neuropathy type: polyneuropathy, other Qualified Code(s): G62.89 - Other specified polyneuropathies (4) Lumbar spondylosis: (5) DVT (deep venous thrombosis): Qualifiers: Affected thrombotic vein of extremity: unspecified vein of extremity Chronicity: unspecified DVT location: lower extremity Laterality: left Qualified Code(s): I82.402 - Acute embolism and thrombosis of unspecified deep veins of left lower extremity (6) Cutaneous abscess of right foot: (7) Ulcer of right foot with fat layer exposed: Plan Right foot osteomyelitis No history of diabetes, however does have a history of recurrent skin/soft tissue infections Rule out possible hardware complication even though less likely Ruling out PVD - Admit patient to medical floor with telemetry - Start IV vancomycin and IV ertapenem, to be dosed by pharmacy - Obtain CT right lower leg to better delineate the soft tissue in that area - I consulted podiatry and orthopedics - Obtain venous Doppler and arterial Doppler to rule out any PAD -IV morphine 2 mg Q4 hourly as needed for pain as well as Tylenol 650 mg p.o. Q6hrs as needed for pain 1-01/20 -IV Compazine for as needed nausea and vomiting -Obtain A1c and lipid panel -I started the patient LR 100 mL/h for total of 1 L - I reconciled the patient's medication including his p.o. anticoagulation Eliquis 5 mg twice daily and aspirin 81 mg p.o. daily - Full code - GI prophylaxis addressed - Obtain echo and I discussed the plan with the patient in detail. Answered all his questions. 08/22/2025 I reviewed the venous and arterial Doppler. No DVT, no significant stenosis in his arterial circulation. As per my discussion with podiatry yesterday his neuropathy appears to be due to his lumbar radiculopathy from before. He underwent incision and drainage of his right foot abscess. Continues to be on IV vancomycin and IV ertapenem for now. Pending orthopedic evaluation at bedside tomorrow morning. Continue with his IV morphine and IV Compazine. His A1c and was not remarkable. I will order PT/OT once cleared by orthopedics tomorrow. I discussed the plan with the patient detail. He is in agreement with the plan. Answered all his questions. Internal Medicine - PN: Subj Subjective Interval history: Patient seen and examined at bedside. States that the pain is better. He did have incision and drainage of his skin abscess in his right foot and it was sent for cultures. Today tells me that he feels better than yesterday. No fever no chills no nausea no vomiting. He continues given IV antibiotics, pending orthopedic consult tomorrow Exam Narrative Exam Narrative: Narrative Exam Narrative: Common normals: average body habitus, oriented x3, no limitations, healthy appearing, alert and well nourished [facility] Common normals: normocephalic and head/scalp atraumatic Eye Common normals: EOMs intact bilaterally and conjunctivae normal Respiratory Common normals: normal respiratory effort, no retractions, no use of accessory muscles and clear to auscultation bilaterally Cardio Common normals: regular rate, regular rhythm, S1 normal heart sound and S2 normal heart sound Abdomen: Soft, nontender, no organomegaly, no signs of acute abdomen Extremities; there is an ulcer on the plantar surface just below the hallux, patient does have erythema and tenderness with warmth in his right foot with multiple raised spots with induration around his medial malleolus and 2 cm above that, he does have good bilateral palpable DP and PT in both feet. No signs of acute limb ischemia as the patient does not have any paresthesia or pain out of proportion or even cold temperature on both. 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 Neuro: Oriented x 3, following commands, no focal deficits Constitutional Vital Signs, click to edit/add: Last Vital Signs Temp 98.4 F 08/22/25 07:58 Pulse 68 08/22/25 12:00 Resp 18 08/22/25 07:58 BP 142/88 H 08/22/25 07:58 Pulse Ox 94 L 08/22/25 07:58 O2 Del Method Room Air 08/22/25 07:58 Internal Medicine - PN: Obj Da Labs Labs: Laboratory Results - last 24 hr 08/21/25 08/22/25 11:57 05:44 WBC 7.5 RBC 4.84 Hgb 13.5 L Hct 41.3 L MCV 85.3 MCH 27.9 MCHC 32.7 RDW 15.8 H Plt Count 130 L MPV 9.7 Neut % (Auto) 78.5 H Lymph % (Auto) 10.4 L Dick[place] % (Auto) 8.1 Eos % (Auto) 1.9 Baso % (Auto) 0.4 Neut # (Auto) 5.9 Lymph # (Auto) 0.8 L Dick[place] # (Auto) 0.6 Eos # (Auto) 0.1 Baso # (Auto) 0.0 Abs Immat Gran (auto) 0.05 H Imm/Tot Granulo (auto) 0.7 H Sodium 141 Potassium 4.0 Chloride 105 Carbon Dioxide 35.4 H Anion Gap 4.6 BUN 10.0 Creatinine 1.03 Est GFR ( Amer) >60 Est GFR (Non-Af Amer) >60 BUN/Creatinine Ratio 9.7 Glucose 117 H Lactate 0.6 Calcium 9.6 Magnesium 2.1 Total Bilirubin 0.4 AST 11 L ALT 19 Alkaline Phosphatase 186 H Total Protein 7.4 Albumin 3.4 Globulin 4.0 Albumin/Globulin Ratio 0.9
[2025-08-22] MEDS: DOXAZOSIN MESYLATE 2 MG TABLET 8 MG PO (13:38)
[2025-08-22] MEDS: ERTAPENEM SODIUM 1 GM in 0.9 % SODIUM CHLORIDE 50 ML IV (13:41)
[2025-08-22] MEDS: ATORVASTATIN CALCIUM 10 MG TABLET PO (22:03)
[2025-08-23] VITALS (20 sets, daily range): BP systolic 112–146; BP diastolic 71–91; PULSE 62–85; TEMP 36.2–36.9; O2SAT 92–97
[2025-08-23 05:35] LABS: Hematocrit 42.0 % (42.0-54.0); Hemoglobin 13.7 g/dL (14.0-18.0); Immature Granulocytes Abs Auto 0.05 10^3/uL (0.00-0.03); Immature Granulocytes Pct Auto 0.8 % (0.0-0.5); Lymphocytes Absolute Auto 1.0 10^3/uL (1.2-3.8); Mean Corpuscular HGB Conc 32.6 g/dL (29.9-35.2); Mean Corpuscular Hemoglobin 27.7 pg (25.9-34.0); Mean Corpuscular Volume 84.8 fL (80.0-94.0); Platelet Count 152 10^3/uL (150-450); Red Blood Count 4.95 10^6/uL (4.70-6.10); White Blood Count 6.6 10^3/uL (4.0-11.0)
[2025-08-23 06:01] LABS: Alanine Aminotransferase 18 U/L (16-63); Albumin Globulin Ratio 0.7; Albumin Level 3.2 g/dL (3.4-5.0); Alkaline Phosphatase 175 U/L (46-116); Anion Gap 8.8; Aspartate Amino Transferase 11 U/L (15-37); Blood Urea Nitrogen 12.0 mg/dL (7.0-18.0); Calcium 9.6 mg/dL (8.5-10.1); Carbon Dioxide 32.1 mmol/L (21.0-32.0); Chloride 100 mmol/L (98-107); Estimated GFR (African America >60 (>=60 mL/min/1.73m^2); Estimated GFR (Non-African Ame >60 (>=60 mL/min/1.73m^2); Globulin 4.4 g/dL; Glucose 111 mg/dL (74-106); Magnesium 1.9 mg/dL (1.8-2.4); Potassium 3.9 mmol/L (3.5-5.1); Sodium 137 mmol/L (136-145); Total Protein 7.6 g/dL (6.4-8.2)
[2025-08-23] MEDS: PANTOPRAZOLE SODIUM 40 MG TABLET.DR PO ×2 (08:23→22:31)
[2025-08-23] MEDS: MULTIVITAMIN TABLET 1 TAB PO (08:23)
[2025-08-23] MEDS: CITALOPRAM HYDROBROMIDE 20 MG TABLET 40 MG PO (08:23)
[2025-08-23] MEDS: ASPIRIN 81 MG TABLET.DR PO (08:23)
[2025-08-23] MEDS: APIXABAN 5 MG TABLET PO ×2 (08:23→22:31)
[2025-08-23] MEDS: CARVEDILOL 25 MG TABLET PO ×2 (08:23→22:33)
[2025-08-23] MEDS: MODAFINIL 100 MG TABLET 200 MG PO ×2 (08:28→11:30)
[2025-08-23] MEDS: AMANTADINE HCL 100 MG CAPSULE PO ×2 (08:28→11:30)
[2025-08-23] MEDS: COLLAGENASE CLOSTRIDIUM HIST. 250 UNITS/GM 30 GRAM TUBE 1 APPLIC TOPICAL (09:44)
--- NOTE | 2025-08-23 10:00 | CM.NOTE ---
Rounds made with Dr. Kent, discussed plan of care with pt. Possible discharge to home tomorrow. Ortho will consult with pt today for further recommendations.
[2025-08-23] MEDS: VANCOMYCIN HCL 1,500 MG in 0.9 % SODIUM CHLORIDE 500 ML 250 MG IV ×2 (10:39→22:31)
--- NOTE | 2025-08-23 10:49 | PM.ORCN ---
History of Present Illness HPI Consult reason: fracture Chief complaint: POSSIBLE DVT CELLULITIS R FOOT/LEG Narrative: Alden is an unhealthy 54-year-old male with significant past medical history of lower extremity neuropathy and previous amputations on bilateral feet. He is status post right tibia fibula fracture with tibial intramedullary nail insertion September 2024. He is admitted to the hospital for right lower extremity cellulitis and right foot infection. He is already had a procedure done by podiatry on his right foot in this hospital stay. He did have some tracking erythema up his leg which has improved. He has had pain around his previous fracture site for some time and is seeing my partner in clinic. Concern for symptomatic callus formation versus infected nonunion. Pain has been about the same. He is currently being treated for the cellulitis. Denies any new symptoms. Denies any systemic symptoms at this time. Review of Systems ROS Status of ROS 10 or more systems reviewed and unremarkable except as noted in history and below [facility] Medical History DVT (deep venous thrombosis) ?I82.409 - Acute embolism and thrombosis of unspecified deep veins of unspecified lower extremity (ICD-10) Cellulitis of right leg ?L03.115 - Cellulitis of right lower limb (ICD-10) Pain in right leg ?M79.604 - Pain in right leg (ICD-10) Type 2 diabetes mellitus with foot ulcer ?E11.621 - Type 2 diabetes mellitus with foot ulcer (ICD-10) ?L97.509 - Non-pressure chronic ulcer of other part of unspecified foot with unspecified severity (ICD-10) Type 2 diabetes mellitus with diabetic polyneuropathy ?E11.42 - Type 2 diabetes mellitus with diabetic polyneuropathy (ICD-10) Acute hypercapnic respiratory failure ?J96.02 - Acute respiratory failure with hypercapnia (ICD-10) Foot ulcer ?L97.509 - Non-pressure chronic ulcer of other part of unspecified foot with unspecified severity (ICD-10) Cellulitis of left leg ?L03.116 - Cellulitis of left lower limb (ICD-10) Chronic foot ulcer ?L97.509 - Non-pressure chronic ulcer of other part of unspecified foot with unspecified severity (ICD-10) Chronic pain syndrome ?G89.4 - Chronic pain syndrome (ICD-10) Lumbar spondylosis ?M47.816 - Spondylosis without myelopathy or radiculopathy, lumbar region (ICD-10) Peripheral neuropathy ?G62.9 - Polyneuropathy, unspecified (ICD-10) Type 2 diabetes mellitus ?E11.9 - Type 2 diabetes mellitus without complications (ICD-10) Closed fracture of left distal fibula ?S82.832A - Other fracture of upper and lower end of left fibula, initial encounter for closed fracture (ICD-10) Ankle fracture ?S82.899A - Other fracture of unspecified lower leg, initial encounter for closed fracture (ICD-10) Prolonged emergence from general anesthesia ?T88.59XA - Other complications of anesthesia, initial encounter (ICD-10) Pain management contract signed ?Z02.89 - Encounter for other administrative examinations (ICD-10) Back pain ?M54.9 - Dorsalgia, unspecified (ICD-10) PTSD (post-traumatic stress disorder) ?F43.10 - Post-traumatic stress disorder, unspecified (ICD-10) Depression ?F32.A - Depression, unspecified (ICD-10) Dysphagia ?R13.10 - Dysphagia, unspecified (ICD-10) Uvulitis ?K12.2 - Cellulitis and abscess of mouth (ICD-10) Insomnia ?G47.00 - Insomnia, unspecified (ICD-10) Migraine ?G43.909 - Migraine, unspecified, not intractable, without status migrainosus (ICD-10) GERD (gastroesophageal reflux disease) ?K21.9 - Gastro-esophageal reflux disease without esophagitis (ICD-10) Dyspnea on exertion ?R06.09 - Other forms of dyspnea (ICD-10) Heart valve disorder ?I38 - Endocarditis, valve unspecified (ICD-10) Hypoglycemia ?E16.2 - Hypoglycemia, unspecified (ICD-10) Delayed recovery from anesthesia Chronic foot ulcer ?L97.509 - Non-pressure chronic ulcer of other part of unspecified foot with unspecified severity (ICD-10) 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 - Central serous chorioretinopathy, unspecified eye (ICD-10) Chronic pain ?G89.29 - Other chronic pain (ICD-10) Narcolepsy ?G47.419 - 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) Anxiety ?F41.9 - Anxiety disorder, unspecified (ICD-10) Upper back pain ?M54.9 - Dorsalgia, unspecified (ICD-10) Low back pain ?M54.50 - Low back pain, unspecified (ICD-10) TMJ (dislocation of temporomandibular joint) ?S03.00XA - Dislocation of jaw, unspecified side, initial encounter (ICD-10) Obesity ?E66.9 - Obesity, unspecified (ICD-10) Sleep apnea ?G47.30 - Sleep apnea, unspecified (ICD-10) Hypertension ?I10 - Essential (primary) hypertension (ICD-10) Surgical History H/O foot surgery ?Z98.890 - Other specified postprocedural states (ICD-10) H/O radiofrequency ablation (RFA) of nerve of lumbar spine ?Z98.890 - Other specified postprocedural states (ICD-10) History of fusion of cervical spine ?Z98.1 - Arthrodesis status (ICD-10) H/O inguinal hernia repair ?Z98.890 - Other specified postprocedural states (ICD-10) ?Z87.19 - Personal history of other diseases of the digestive system (ICD-10) H/O repair of rotator cuff ?Z98.890 - Other specified postprocedural states (ICD-10) History of uvulopalatopharyngoplasty ?Z98.890 - Other specified postprocedural states (ICD-10) Family History Father Family history of CHF (congestive heart failure) Family history of diabetes mellitus Family history of hypertension Grandfather Family history of myocardial infarction Family history of stroke Grandmother Family history of stroke Social History (Updated 08/21/25 @ 09:49 by Parvin Merlos) Within the past year, how often did you have a drink containing alcohol: 2-4 times a month Within the past year, how many standard drinks containing alcohol did you have on a typical day: 1 or 2 Within the past year, how often did you have six or more drinks on one occasion: less than monthly Total score: 1 Score interpretation: A score less than 4 is consistent with normal alcohol consumption. Smoking status: Never smoker Non-prescribed substance use: cannabis (any form) Previous occupational history: unemployed Highest level of school completed/degree received: high school graduate Are you now , , , , never or living with a partner: In a typical week, how many times do you talk on the telephone with family, friends, or neighbors: twice per week How often do you get together with friends or relatives: twice per week How often do you attend evangelical or zoroastrian services: never Do you belong to any clubs or organizations such as evangelical groups unions, [employer] or athletic groups, or school groups: no Total score: 2 Score interpretation: A score of greater than or equal to 2 indicates the lowest level of social isolation. Little interest or pleasure in doing things: not at all Feeling down, depressed, or hopeless: not at all Feel stressed/tense/nervous/anxious/difficulty sleeping: not at all Do you think of yourself as: straight/heterosexual Gender Identity: male Meds Home Medications and Allergies Home Medications ?Medication ?Instructions ?Recorded ?Confirmed ?Type carvedilol 25 mg tablet 25 mg PO BID 06/14/23 08/21/25 History furosemide 20 mg tablet 20 mg PO DAILY PRN edema 06/14/23 08/21/25 History gabapentin 600 mg tablet 600 mg PO DAILY@1200 06/14/23 08/21/25 History pantoprazole 40 mg tablet,delayed 40 mg PO Q12H 06/14/23 08/21/25 History release simvastatin 20 mg tablet 20 mg PO .qhs 06/14/23 08/21/25 History modafinil 200 mg tablet 200 mg PO BID 09/04/23 08/21/25 History potassium chloride 10 mEq 10 meq PO Q12H 09/04/23 08/21/25 History tablet,extended release amantadine HCl 100 mg tablet 100 mg PO BID 12/28/23 08/21/25 History cholecalciferol (vitamin D3) 125 6,000 unit PO DAILY 12/28/23 08/21/25 History mcg (5,000 unit) capsule multivitamin (Daily Multi-Vitamin 1 tab PO DAILY@1200 12/28/23 08/21/25 History tablet) biotin 10 mg tablet 10 mg PO DAILY@1200 09/19/24 08/21/25 History citalopram 40 mg tablet 40 mg PO DAILY 09/20/24 08/21/25 History aspirin 81 mg tablet,delayed 81 mg PO DAILY 03/06/25 08/21/25 History release (Adult Low Dose Aspirin) meclizine 25 mg tablet 25 mg PO DAILY PRN dizziness 03/06/25 08/21/25 History sodium, calcium, magnesium, 4.5 g PO HS 03/06/25 08/21/25 History potassium oxybates 0.5 gram/mL oral soln (Xywav) sumatriptan succinate 100 mg 100 mg PO Q2H PRN migraine headache 03/06/25 08/21/25 History tablet (Imitrex) apixaban 5 mg tablet (Eliquis) 5 mg PO BID #60 tabs 06/21/25 08/21/25 Rx doxazosin 8 mg tablet 8 mg PO DAILY@1200 08/21/25 08/21/25 History glycopyrrolate 1 mg tablet 1 mg PO BID@0600,1200 08/21/25 08/21/25 History Allergies Allergy/AdvReac Type Severity Reaction Status Date / Time No Known Drug Allergies Allergy Verified 08/21/25 03:21 Exam Narrative Exam Narrative: Examination of the right lower extremity shows wound on the right foot with surrounding erythema. No significant soft tissue swelling around the distal tibia fibula however prominence subcutaneously around the fracture site which is slightly tender to palpation. No fluctuance or fluid collection noted. No tenderness in the proximal tibia. Painless range of motion of the knee. Mild tenderness around the ankle however painless range of motion of the ankle. Diminished sensation throughout. Faint pulses distal. Constitutional Vital Signs, click to edit/add: Last Vital Signs Temp 97.2 F L 08/23/25 08:02 Pulse 66 08/23/25 10:00 Resp 18 08/23/25 03:36 BP 136/91 08/23/25 08:02 Pulse Ox 96 08/23/25 08:02 O2 Del Method Room Air 08/23/25 08:02 Results Labs Labs: Abnormal lab results 08/23/25 Range/Units 05:03 Hgb 13.7 L (14.0-18.0) g/dL RDW 15.3 H (11.0-15.0) % Lymph % (Auto) 14.6 L (20.5-60.0) % Lymph # (Auto) 1.0 L (1.2-3.8) 10^3/uL Abs Immat Gran (auto) 0.05 H (0.00-0.03) 10^3/uL Imm/Tot Granulo (auto) 0.8 H (0.0-0.5) % Carbon Dioxide 32.1 H (21.0-32.0) mmol/L Glucose 111 H (74-106) mg/dL AST 11 L (15-37) U/L Alkaline Phosphatase 175 H (46-116) U/L Albumin 3.2 L (3.4-5.0) g/dL H & H 08/21/25 08/22/25 08/23/25 Range/Units 04:02 05:44 05:03 Hgb 13.0 L 13.5 L 13.7 L (14.0-18.0) g/dL Hct 39.2 L 41.3 L 42.0 (42.0-54.0) % All other labs normal. Assessment and Plan Assessment and Plan (1) Cellulitis of leg, right: (2) Pre-diabetes: (3) Peripheral neuropathy: Qualifiers: Peripheral neuropathy type: polyneuropathy, other Qualified Code(s): G62.89 - Other specified polyneuropathies (4) Lumbar spondylosis: (5) DVT (deep venous thrombosis): Qualifiers: Affected thrombotic vein of extremity: unspecified vein of extremity Chronicity: unspecified DVT location: lower extremity Laterality: left Qualified Code(s): I82.402 - Acute embolism and thrombosis of unspecified deep veins of left lower extremity (6) Cutaneous abscess of right foot: (7) Ulcer of right foot with fat layer exposed: Plan Alden is a 54-year-old male with multiple previous amputations of his right lower leg secondary to neuropathy. He is status post tibial intramedullary nail insertion with hypertrophic callus around the fracture. He could possibly have a nonunion which could be a septic versus septic. It is difficult to assess since his inflammatory markers are elevated which could be from his foot wound and cellulitis versus the tibial fracture site. Based on the surrounding soft tissue at the distal tibial shaft fracture, I do not believe it is in septic union. He has already been seen by my partner outpatient, he can follow-up with Dr. Coats outpatient to discuss results of inflammatory markers and previous CT scan that was ordered. No orthopedic surgical intervention needed in this hospital stay.
--- NOTE | 2025-08-23 11:26 | PM.IMPN1 ---
Progress Note: A&P Assessment and Plan (1) Cellulitis of leg, right: (2) Pre-diabetes: (3) Peripheral neuropathy: Qualifiers: Peripheral neuropathy type: polyneuropathy, other Qualified Code(s): G62.89 - Other specified polyneuropathies (4) Lumbar spondylosis: (5) DVT (deep venous thrombosis): Qualifiers: Affected thrombotic vein of extremity: unspecified vein of extremity Chronicity: unspecified DVT location: lower extremity Laterality: left Qualified Code(s): I82.402 - Acute embolism and thrombosis of unspecified deep veins of left lower extremity (6) Cutaneous abscess of right foot: (7) Ulcer of right foot with fat layer exposed: Plan Right foot osteomyelitis No history of diabetes, however does have a history of recurrent skin/soft tissue infections Rule out possible hardware complication even though less likely Ruling out PVD - Admit patient to medical floor with telemetry - Start IV vancomycin and IV ertapenem, to be dosed by pharmacy - Obtain CT right lower leg to better delineate the soft tissue in that area - I consulted podiatry and orthopedics - Obtain venous Doppler and arterial Doppler to rule out any PAD -IV morphine 2 mg Q4 hourly as needed for pain as well as Tylenol 650 mg p.o. Q6hrs as needed for pain 1-01/20 -IV Compazine for as needed nausea and vomiting -Obtain A1c and lipid panel -I started the patient LR 100 mL/h for total of 1 L - I reconciled the patient's medication including his p.o. anticoagulation Eliquis 5 mg twice daily and aspirin 81 mg p.o. daily - Full code - GI prophylaxis addressed - Obtain echo and I discussed the plan with the patient in detail. Answered all his questions. 08/22/2025 I reviewed the venous and arterial Doppler. No DVT, no significant stenosis in his arterial circulation. As per my discussion with podiatry yesterday his neuropathy appears to be due to his lumbar radiculopathy from before. He underwent incision and drainage of his right foot abscess. Continues to be on IV vancomycin and IV ertapenem for now. Pending orthopedic evaluation at bedside tomorrow morning. Continue with his IV morphine and IV Compazine. His A1c and was not remarkable. I will order PT/OT once cleared by orthopedics tomorrow. I discussed the plan with the patient detail. He is in agreement with the plan. Answered all his questions. 08/23/2025 patient is POD#2 status post incision and drainage of his right foot abscess. I discussed the case with orthopedics, Dr. Batres who saw the patient today. Orthopedics feels less likely that this is a septic nonunion of his distal tibial fracture. On examination patient does have bony sensation rather than collection or induration on palpating the distal tibial fracture site. Okay to the patient on IV vancomycin IV ertapenem and will reassess tomorrow. Once the wound cultures are back I will tailor his antibiotics to p.o. versus IV on discharge. Also I will order inflammatory markers tomorrow morning to monitor the patient's response to it. Internal Medicine - PN: Subj Subjective Interval history: Patient seen and examined at bedside. States that he continues to feel better. His wound was just wrapped by wound nurse before he came in. No fever no chills no nausea no vomiting. Labs were unremarkable. States that the pain is better especially on and around his right groin area states that the pain is better. Exam Narrative Exam Narrative: Constitutional: Average body habitus, oriented x3, no limitations, healthy appearing, alert and well nourished [facility] Common normals: normocephalic and head/scalp atraumatic Eye Common normals: EOMs intact bilaterally and conjunctivae normal Respiratory Common normals: normal respiratory effort, no retractions, no use of accessory muscles and clear to auscultation bilaterally Cardio Common normals: regular rate, regular rhythm, S1 normal heart sound and S2 normal heart sound Abdomen: Soft, nontender, no organomegaly, no signs of acute abdomen Extremities; his right foot is wrapped with wound dressing that was just changed today., he does have good bilateral palpable DP and PT in both feet. No signs of acute limb ischemia as the patient does not have any paresthesia or pain out of proportion or even cold temperature on both. 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 Neuro: Oriented x 3, following commands, no focal deficits Constitutional Vital Signs, click to edit/add: Last Vital Signs Temp 97.2 F L 08/23/25 08:02 Pulse 66 08/23/25 10:00 Resp 18 08/23/25 03:36 BP 136/91 08/23/25 08:02 Pulse Ox 96 08/23/25 08:02 O2 Del Method Room Air 08/23/25 08:02 Internal Medicine - PN: Obj Da Labs Labs: Laboratory Results - last 24 hr 08/23/25 08/23/25 05:03 08:48 WBC 6.6 RBC 4.95 Hgb 13.7 L Hct 42.0 MCV 84.8 MCH 27.7 MCHC 32.6 RDW 15.3 H Plt Count 152 MPV 9.8 Neut % (Auto) 72.5 Lymph % (Auto) 14.6 L [place] % (Auto) 7.7 Eos % (Auto) 3.3 Baso % (Auto) 1.1 Neut # (Auto) 4.8 Lymph # (Auto) 1.0 L [place]son # (Auto) 0.5 Eos # (Auto) 0.2 Baso # (Auto) 0.1 Abs Immat Gran (auto) 0.05 H Imm/Tot Granulo (auto) 0.8 H Sodium 137 Potassium 3.9 Chloride 100 Carbon Dioxide 32.1 H Anion Gap 8.8 BUN 12.0 Creatinine 0.88 Est GFR ( Amer) >60 Est GFR (Non-Af Amer) >60 BUN/Creatinine Ratio 13.6 Glucose 111 H Calcium 9.6 Magnesium 1.9 Total Bilirubin 0.4 AST 11 L ALT 18 Alkaline Phosphatase 175 H Total Protein 7.6 Albumin 3.2 L Globulin 4.4 Albumin/Globulin Ratio 0.7 Vancomycin Trough 11.7
[2025-08-23] MEDS: DOXAZOSIN MESYLATE 2 MG TABLET 8 MG PO (11:30)
[2025-08-23] MEDS: GABAPENTIN 300 MG CAPSULE 600 MG PO (11:32)
--- NOTE | 2025-08-23 13:43 | CM.NOTE ---
Preliminary foot culture report sent to Dr. Kent ([place] txt).
[2025-08-23] MEDS: ERTAPENEM SODIUM 1 GM in 0.9 % SODIUM CHLORIDE 50 ML IV (14:38)
[2025-08-23] MEDS: ATORVASTATIN CALCIUM 10 MG TABLET PO (22:31)
[2025-08-24] VITALS (19 sets, daily range): BP systolic 128–152; BP diastolic 71–88; PULSE 60–87; TEMP 36.3–37.1; O2SAT 94–98; BMI 35.4
[2025-08-24 05:38] LABS: Hematocrit 44.7 % (42.0-54.0); Hemoglobin 14.7 g/dL (14.0-18.0); Immature Granulocytes Abs Auto 0.09 10^3/uL (0.00-0.03); Immature Granulocytes Pct Auto 1.3 % (0.0-0.5); Lymphocytes Absolute Auto 1.3 10^3/uL (1.2-3.8); Mean Corpuscular HGB Conc 32.9 g/dL (29.9-35.2); Mean Corpuscular Hemoglobin 27.5 pg (25.9-34.0); Mean Corpuscular Volume 83.7 fL (80.0-94.0); Platelet Count 198 10^3/uL (150-450); Red Blood Count 5.34 10^6/uL (4.70-6.10); White Blood Count 7.2 10^3/uL (4.0-11.0)
[2025-08-24 06:05] LABS: Alanine Aminotransferase 19 U/L (16-63); Albumin Globulin Ratio 0.8; Albumin Level 3.5 g/dL (3.4-5.0); Alkaline Phosphatase 183 U/L (46-116); Anion Gap 11.5; Aspartate Amino Transferase 11 U/L (15-37); Blood Urea Nitrogen 15.0 mg/dL (7.0-18.0); Calcium 9.8 mg/dL (8.5-10.1); Carbon Dioxide 27.9 mmol/L (21.0-32.0); Chloride 102 mmol/L (98-107); Estimated GFR (African America >60 (>=60 mL/min/1.73m^2); Estimated GFR (Non-African Ame >60 (>=60 mL/min/1.73m^2); Globulin 4.6 g/dL; Glucose 102 mg/dL (74-106); Magnesium 2.0 mg/dL (1.8-2.4); Potassium 3.4 mmol/L (3.5-5.1); Sodium 138 mmol/L (136-145); Total Protein 8.1 g/dL (6.4-8.2)
[2025-08-24] MEDS: AMANTADINE HCL 100 MG CAPSULE PO ×2 (09:04→13:05)
[2025-08-24] MEDS: PANTOPRAZOLE SODIUM 40 MG TABLET.DR PO ×2 (09:04→22:22)
[2025-08-24] MEDS: MODAFINIL 100 MG TABLET 200 MG PO ×2 (09:04→13:05)
[2025-08-24] MEDS: CARVEDILOL 25 MG TABLET PO ×2 (09:05→22:22)
[2025-08-24] MEDS: ASPIRIN 81 MG TABLET.DR PO (09:05)
[2025-08-24] MEDS: MULTIVITAMIN TABLET 1 TAB PO (09:05)
[2025-08-24] MEDS: APIXABAN 5 MG TABLET PO ×2 (09:05→22:22)
[2025-08-24] MEDS: CITALOPRAM HYDROBROMIDE 20 MG TABLET 40 MG PO (09:05)
[2025-08-24] MEDS: COLLAGENASE CLOSTRIDIUM HIST. 250 UNITS/GM 30 GRAM TUBE 1 APPLIC TOPICAL (09:09)
[2025-08-24] MEDS: VANCOMYCIN HCL 1,500 MG in 0.9 % SODIUM CHLORIDE 500 ML 250 MG IV ×2 (09:10→22:21)
--- NOTE | 2025-08-24 10:00 | CM.NOTE ---
Rounds made with Dr. Kent, no discharge today. Awaiting susceptibility for cultures and treatment plan. Pt verbalizes understanding, continue treatment as ordered.
--- NOTE | 2025-08-24 11:01 | P.IMPN_ITS ---
Progress Note: A&P Assessment and Plan (1) Cellulitis of leg, right: (2) Pre-diabetes: (3) Peripheral neuropathy: Qualifiers: Peripheral neuropathy type: polyneuropathy, other Qualified Code(s): G62.89 - Other specified polyneuropathies (4) Lumbar spondylosis: (5) DVT (deep venous thrombosis): Qualifiers: Affected thrombotic vein of extremity: unspecified vein of extremity Chronicity: unspecified DVT location: lower extremity Laterality: left Qualif ied Code(s): I82.402 - Acute embolism and thrombosis of unspecified deep veins of left lower extremity (6) Cutaneous abscess of right foot: (7) Ulcer of right foot with fat layer exposed: Plan Right foot osteomyelitis No history of diabetes, however does have a history of recurrent skin/soft tissue infections Rule out possible hardware complication even though less likely Ruling out PVD - Admit patient to medical floor with telemetry - Start IV vancomycin and IV ertapenem, to be dosed by pharmacy - Obtain CT right lower leg to better delineate the soft tissue in that area - I consulted podiatry and orthopedics - Obtain venous Doppler and arterial Doppler to rule out any PAD -IV morphine 2 mg Q4 hourly as needed for pain as well as Tylenol 650 mg p.o. Q6hrs as needed for pain 1-01/20 -IV Compazine for as needed nausea and vomiting -Obtain A1c and lipid panel -I started the patient LR 100 mL/h for total of 1 L - I reconciled the patient's medication including his p.o. anticoagulation Eliquis 5 mg twice daily and aspirin 81 mg p.o. daily - Full code - GI prophylaxis addressed - Obtain echo and I discussed the plan with the patient in detail. Answered all his questions. 08/22/2025 I reviewed the venous and arterial Doppler. No DVT, no significant stenosis in his arterial circulation. As per my discussion with podiatry yesterday his neuropathy appears to be due to his lumbar radiculopathy from before. He underwent incision and drainage of his right foot abscess. Continues to be on IV vancomycin and IV ertapenem for now. Pending orthopedic evaluation at bedside tomorrow morning. Continue with his IV morphine and IV Compazine. His A1c and was not remarkable. I will order PT/OT once cleared by orthopedics tomorrow. I discussed the plan with the patient detail. He is in agreement with the plan. Answered all his questions. 08/23/2025 patient is POD#2 status post incision and drainage of his right foot abscess. I discussed the case with orthopedics, Dr. Batres who saw the patient today. Orthopedics feels less likely that this is a septic nonunion of his distal tibial fracture. On examination patient does have bony sensation rather than collection or induration on palpating the distal tibial fracture site. Okay to the patient on IV vancomycin IV ertapenem and will reassess tomorrow. Once the wound cultures are back I will tailor his antibiotics to p.o. versus IV on discharge. Also I will order inflammatory markers tomorrow morning to monitor the patient's response to it. 08/24/2025 I related the patient to orthopedic as well as podiatry recommendations. He is continuing to be on IV vancomycin IV ertapenem for now. I am waiting for his deep wound culture after incision and drainage that are growing staph but will wait for the further specifications and ADAM decide on the course of antibiotic that we will take on discharge. Discussed with him the plan and hopefully will discharge him tomorrow when we have more information regarding his wound culture. Internal Medicine - PN: Subj Subjective Interval history: Patient seen and examined at bedside. Continues to feel better. No fever no chills. Waiting for his wound culture sensitivity as it grew Staph aureus. Exam Narrative Exam Narrative: Constitutional: Average body habitus, oriented x3, no limitations, healthy appearing, alert and well nourished [facility] Common normals: normocephalic and head/scalp atraumatic Eye Common normals: EOMs intact bilaterally and conjunctivae normal Respiratory Common normals: normal respiratory effort, no retractions, no use of accessory muscles and clear to auscultation bilaterally Cardio Common normals: regular rate, regular rhythm, S1 normal heart sound and S2 normal heart sound Abdomen: Soft, nontender, no organomegaly, no signs of acute abdomen Extremities; his right foot is wrapped with wound dressing that was just changed today., he does have good bilateral palpable DP and PT in both feet. No signs of acute limb ischemia as the patient does not have any paresthesia or pain out of proportion or even cold temperature on both. 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 Neuro: Oriented x 3, following commands, no focal deficits Constitutional Vital Signs, click to edit/add: Last Vital Signs Temp 98.0 F 08/24/25 07:44 Pulse 75 08/24/25 09:59 Resp 18 08/24/25 07:44 BP 152/80 H 08/24/25 07:44 Pulse Ox 98 08/24/25 07:44 O2 Del Method Room Air 08/24/25 07:44 Internal Medicine - PN: Obj Da Labs Labs: Laboratory Results - last 24 hr 08/24/25 05:02 WBC 7.2 RBC 5.34 Hgb 14.7 Hct 44.7 MCV 83.7 MCH 27.5 MCHC 32.9 RDW 15.4 H Plt Count 198 MPV 10.0 Neut % (Auto) 68.1 Lymph % (Auto) 18.6 L [place] % (Auto) 8.1 Eos % (Auto) 3.1 Baso % (Auto) 0.8 Neut # (Auto) 4.9 Lymph # (Auto) 1.3 [place] # (Auto) 0.6 Eos # (Auto) 0.2 Baso # (Auto) 0.1 Abs Immat Gran (auto) 0.09 H Imm/Tot Granulo (auto) 1.3 H ESR 66 H Sodium 138 Potassium 3.4 L Chloride 102 Carbon Dioxide 27.9 Anion Gap 11.5 BUN 15.0 Creatinine 0.91 Est GFR ( Amer) >60 Est GFR (Non-Af Amer) >60 BUN/Creatinine Ratio 16.5 Glucose 102 Calcium 9.8 Magnesium 2.0 Total Bilirubin 0.3 AST 11 L ALT 19 Alkaline Phosphatase 183 H C-Reactive Protein 2.66 H Total Protein 8.1 Albumin 3.5 Globulin 4.6 Albumin/Globulin Ratio 0.8
[2025-08-24] MEDS: GABAPENTIN 300 MG CAPSULE 600 MG PO (13:04)
[2025-08-24] MEDS: DOXAZOSIN MESYLATE 2 MG TABLET 8 MG PO (13:04)
[2025-08-24] MEDS: ERTAPENEM SODIUM 1 GM in 0.9 % SODIUM CHLORIDE 50 ML IV (13:18)
--- NOTE | 2025-08-24 14:15 | CM.NOTE ---
Spoke with Dr. Kent regarding discharge plan for antibiotics d/t final foot culture coming back as MRSA. Dr. Kent will start oral zyvox for pt on 08/25. CM discussed concern of medication needing a precert. Dr. Kent will send script to pharmacy today and CM will call pharmacy.
--- NOTE | 2025-08-24 14:43 | CM.NOTE ---
Lab requisition completed for CBC in one week and given to Med-Surg field secretary. Dr. Kent will need to sign tomorrow and give to pt.
--- NOTE | 2025-08-24 14:56 | CM.NOTE ---
I spoke with the patients to see if she would be able to picker machine operator the Linezolid from [facility] today due to the pharmacy being closed tomorrow. The states that she could not leave the house today for several reasons and asked that I call the prescription into [facility] in [place] instead so she could picker machine operator tomorrow. Linezolid was called into [facility] in [place].
[2025-08-24] MEDS: ATORVASTATIN CALCIUM 10 MG TABLET PO (22:22)
[2025-08-25] VITALS (9 sets, daily range): BP systolic 113–155; BP diastolic 74–88; PULSE 70–81; TEMP 36.3–36.6; O2SAT 95–98
[2025-08-25 06:40] LABS: Hematocrit 43.8 % (42.0-54.0); Hemoglobin 14.3 g/dL (14.0-18.0); Immature Granulocytes Abs Auto 0.05 10^3/uL (0.00-0.03); Immature Granulocytes Pct Auto 0.8 % (0.0-0.5); Lymphocytes Absolute Auto 1.1 10^3/uL (1.2-3.8); Mean Corpuscular HGB Conc 32.6 g/dL (29.9-35.2); Mean Corpuscular Hemoglobin 27.7 pg (25.9-34.0); Mean Corpuscular Volume 84.7 fL (80.0-94.0); Platelet Count 181 10^3/uL (150-450); Red Blood Count 5.17 10^6/uL (4.70-6.10); White Blood Count 5.9 10^3/uL (4.0-11.0)
[2025-08-25 06:52] LABS: Alanine Aminotransferase 19 U/L (16-63); Albumin Globulin Ratio 0.7; Albumin Level 3.3 g/dL (3.4-5.0); Alkaline Phosphatase 184 U/L (46-116); Anion Gap 12.6; Aspartate Amino Transferase 14 U/L (15-37); Blood Urea Nitrogen 15.0 mg/dL (7.0-18.0); Calcium 9.6 mg/dL (8.5-10.1); Carbon Dioxide 30.6 mmol/L (21.0-32.0); Chloride 103 mmol/L (98-107); Estimated GFR (African America >60 (>=60 mL/min/1.73m^2); Estimated GFR (Non-African Ame >60 (>=60 mL/min/1.73m^2); Globulin 4.5 g/dL; Glucose 126 mg/dL (74-106); Magnesium 2.1 mg/dL (1.8-2.4); Potassium 4.2 mmol/L (3.5-5.1); Sodium 142 mmol/L (136-145); Total Protein 7.8 g/dL (6.4-8.2)
[2025-08-25] MEDS: MORPHINE SULFATE 2 MG/ML SYRINGE 1 MG IV (08:26)
[2025-08-25] MEDS: MODAFINIL 100 MG TABLET 200 MG PO ×2 (08:29→12:42)
[2025-08-25] MEDS: AMANTADINE HCL 100 MG CAPSULE PO ×2 (08:30→12:41)
[2025-08-25] MEDS: CARVEDILOL 25 MG TABLET PO (08:31)
[2025-08-25] MEDS: APIXABAN 5 MG TABLET PO (08:31)
[2025-08-25] MEDS: COLLAGENASE CLOSTRIDIUM HIST. 250 UNITS/GM 30 GRAM TUBE 1 APPLIC TOPICAL (08:31)
[2025-08-25] MEDS: ASPIRIN 81 MG TABLET.DR PO (08:31)
[2025-08-25] MEDS: PANTOPRAZOLE SODIUM 40 MG TABLET.DR PO (08:32)
[2025-08-25] MEDS: MULTIVITAMIN TABLET 1 TAB PO (08:32)
--- NOTE | 2025-08-25 10:17 | P.DS_ITS ---
DS: Providers Provider Date of admission: 08/21/25 08:23 Primary care physician: Caden Mendez MD Consults: 08/21/25 09:38 Consult to Podiatry Routine Consulting Provider: Trey Vallejo Reason for consultation: osteomyelitis 08/21/25 11:49 Consult to Orthopedic Surgery Routine Consulting Provider: Fahad Batres Reason For Exam: Reason for consultation: osteomyelitis, orif in September 2024 Anticipated date of discharge: 08/25/25 DS: Diagnosis Discharge Diagnosis (1) Cellulitis of leg, right: (2) Pre-diabetes: (3) Peripheral neuropathy: Qualifiers: Peripheral neuropathy type: polyneuropathy, other Qualified Code(s): G62.89 - Other specified polyneuropathies (4) Lumbar spondylosis: (5) DVT (deep venous thrombosis): Qualifiers: Affected thrombotic vein of extremity: unspecified vein of extremity Chronicity: unspecified DVT location: lower extremity Laterality: left Qualified Code(s): I82.402 - Acute embolism and thrombosis of unspecified deep veins of left lower extremity (6) Cutaneous abscess of right foot: (7) Ulcer of right foot with fat layer exposed: Plan As above DS: Summary Hospital Course Hospital Course: This is a 54-year-old male with past medical history of DVT, lumbar radiculopathy, left foot osteomyelitis recently with with cellulitis and 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 Patient is poor historian so the history was limited however he states that over the last 2 days he started complaining of right lower extremity pain mainly on his right lower ankle that would shoot up to his right groin. He noticed areas of swelling and raised areas that was more painful than others. He does notice warmth and erythema in that area as well. He denies to me any fever chills or nausea or vomiting. In the ED, patient was afebrile with unremarkable vital signs. However he was in pain. His CBC showed leukocytosis with stable hemoglobin and platelets. His ESR was 31. His CMP was not remarkable, his CRP was 1.76. His CT abdomen pelvis showed mildly prominent inguinal lymph nodes right greater than left. X- ray of the foot showed soft tissue swelling along the great toe suspicious for cellulitis, bony destruction noted in the interphalangeal of the great toe suspicious for osteomyelitis. 1.5 cm linear radiodense foreign body in the interspace between the 2nd and 3rd metatarsals with diffuse soft tissue swelling. Tibia/fibula showing healing fracture of distal tibia and fibula without hardware complication. No osteolytic or bony destruction to suggest osteo. Patient received 1 dose of vancomycin IV 2 g as well as 1 dose of clindamycin in the ED, he is to be admitted under hospitalist service for further workup and management (1) Cellulitis of leg, right: (2) Pre-diabetes: (3) Peripheral neuropathy: Qualifiers: Peripheral neuropathy type: polyneuropathy, other Qualified Code(s): G62.89 - Other specified polyneuropathies (4) Lumbar spondylosis: (5) DVT (deep venous thrombosis): Qualifiers: Affected thrombotic vein of extremity: unspecified vein of extremity Chronicity: unspecified DVT location: lower extremity Laterality: left Qualified Code(s): I82.402 - Acute embolism and thrombosis of unspecified deep veins of left lower extremity Plan Right foot osteomyelitis No history of diabetes, however does have a history of recurrent skin/soft tissue infections Rule out possible hardware complication even though less likely Ruling out PVD - Admit patient to medical floor with telemetry - Start IV vancomycin and IV ertapenem, to be dosed by pharmacy - Obtain CT right lower leg to better delineate the soft tissue in that area - I consulted podiatry and orthopedics - Obtain venous Doppler and arterial Doppler to rule out any PAD -IV morphine 2 mg Q4 hourly as needed for pain as well as Tylenol 650 mg p.o. Q6hrs as needed for pain 1-01/20 -IV Compazine for as needed nausea and vomiting -Obtain A1c and lipid panel -I started the patient LR 100 mL/h for total of 1 L - I reconciled the patient's medication including his p.o. anticoagulation Eliquis 5 mg twice daily and aspirin 81 mg p.o. daily - Full code - GI prophylaxis addressed - Obtain echo and I discussed the plan with the patient in detail. Answered all his questions. I did speak to Dr. Batres, from orthopedics, reviewed with him the pt's clinical status with the imaging results and physical exam findings, he recommends continuing antibiotics for now and he will examine Mr. Garces on 08/23/2025. ALso discussed the case with podiatry Dr. Vallejo, reviewed the case as well, and agreed on the aforementioned plan of management 08/22/2025 I reviewed the venous and arterial Doppler. No DVT, no significant stenosis in his arterial circulation. As per my discussion with podiatry yesterday his neuropathy appears to be due to his lumbar radiculopathy from before. He underwent incision and drainage of his right foot abscess. Continues to be on IV vancomycin and IV ertapenem for now. Pending orthopedic evaluation at bedside tomorrow morning. Continue with his IV morphine and IV Compazine. His A1c and was not remarkable. I will order PT/OT once cleared by orthopedics tomorrow. I discussed the plan with the patient detail. He is in agreement with the plan. Answered all his questions. 08/23/2025 patient is POD#2 status post incision and drainage of his right foot abscess. I discussed the case with orthopedics, Dr. Batres who saw the patient today. Orthopedics feels less likely that this is a septic nonunion of his distal tibial fracture. On examination patient does have bony sensation rather than collection or induration on palpating the distal tibial fracture site. Okay to the patient on IV vancomycin IV ertapenem and will reassess tomorrow. Once the wound cultures are back I will tailor his antibiotics to p.o. versus IV on discharge. Also I will order inflammatory markers tomorrow morning to monitor the patient's response to it. 08/24/2025 I relayed to the patient the orthopedic as well as podiatry recommendations. He is continuing to be on IV vancomycin IV ertapenem for now. I am waiting for his deep wound culture after incision and drainage that are growing staph but will wait for the further specifications and ADAM decide on the course of antibiotic that we will take on discharge. Discussed with him the plan and hopefully will discharge him tomorrow when we have more information regarding his wound culture. 08/25/2025 patient received 5 days of IV vancomycin, his wound culture growing MRSA sensitive to linezolid. I discussed the plan of management with him and he is more inclined towards oral antibiotics on discharge. I ordered him linezolid 600 mg p.o. twice daily first dose to be given today while in the hospital, patient is on citalopram and sumatriptan which I asked him to hold for the next 10 days. He is in agreement with the plan. He will need to follow-up with orthopedic as outpatient to further discuss options for the nonunion of his ORIF on his distal tibia. He tells me that he will see Dr. Mendez early next week and we will discuss that with him. He will need a CBC within a week of starting his linezolid. Time Spent with Patient Time attestation: Total time spent providing and/or coordinating discharge services: Time spent: greater than 30 minutes Exam Constitutional Vital Signs, click to edit/add: Last Vital Signs Temp 97.8 F 08/25/25 07:43 Pulse 70 08/25/25 07:55 Resp 18 08/25/25 07:43 BP 127/77 08/25/25 07:43 Pulse Ox 95 08/25/25 07:43 O2 Del Method Room Air 08/25/25 07:43 DS: Data Data Completed and Pending Labs on day of discharge: Labs from last 24 hours 08/25/25 06:20 WBC 5.9 RBC 5.17 Hgb 14.3 Hct 43.8 MCV 84.7 MCH 27.7 MCHC 32.6 RDW 15.5 H Plt Count 181 MPV 9.3 L Neut % (Auto) 68.2 Lymph % (Auto) 18.5 L [place] % (Auto) 7.8 Eos % (Auto) 3.7 Baso % (Auto) 1.0 Neut # (Auto) 4.0 Lymph # (Auto) 1.1 L [place] # (Auto) 0.5 Eos # (Auto) 0.2 Baso # (Auto) 0.1 Abs Immat Gran (auto) 0.05 H Imm/Tot Granulo (auto) 0.8 H Sodium 142 Potassium 4.2 Chloride 103 Carbon Dioxide 30.6 Anion Gap 12.6 BUN 15.0 Creatinine 0.94 Est GFR ( Amer) >60 Est GFR (Non-Af Amer) >60 BUN/Creatinine Ratio 16.0 Glucose 126 H Calcium 9.6 Magnesium 2.1 Total Bilirubin 0.3 AST 14 L ALT 19 Alkaline Phosphatase 184 H Total Protein 7.8 Albumin 3.3 L Globulin 4.5 Albumin/Globulin Ratio 0.7 Preliminary micro results at discharge 08/21/25 04:02 Blood Culture Result 2 - Preliminary Blood - Left Antecubital NO GROWTH AT 36-48 HOURS. FINAL TO FOLLOW. 08/21/25 04:00 Blood Culture Result 1 - Preliminary Blood - Right Forearm NO GROWTH AT 36-48 HOURS. FINAL TO FOLLOW. Discharge Plan Discharge Disposition: Home, Self-Care Discharge Medications: New linezolid 600 mg tablet 600 mg PO BID 10 Days Qty: 20 0RF Santyl 250 unit/gram Ointment 1 applic topical QD 10 Days Qty: 30 0RF Continued potassium chloride 10 mEq tablet extended release 10 meq PO Q12H modafinil 200 mg tablet 200 mg PO BID Patient Comments: am and noon glycopyrrolate 1 mg tablet 1 mg PO BID@0600,1200 doxazosin 8 mg tablet 8 mg PO DAILY@1200 gabapentin 600 mg tablet 600 mg PO DAILY@1200 carvedilol 25 mg tablet 25 mg PO BID Rx Instructions: must administer with a meal/food simvastatin 20 mg tablet 20 mg PO .qhs pantoprazole 40 mg tablet,delayed release (DR/EC) 40 mg PO Q12H furosemide 20 mg tablet 20 mg PO DAILY PRN (Reason: edema) cholecalciferol (vitamin D3) 125 mcg (5,000 unit) capsule 6,000 unit PO DAILY multivitamin [Daily Multi-Vitamin] Tablet 1 tab PO DAILY@1200 amantadine HCl 100 mg tablet 100 mg PO BID Patient Comments: AM AND NOON biotin 10 mg tablet 10 mg PO DAILY@1200 Xywav 0.5 gram/mL solution 4.5 g PO HS meclizine 25 mg tablet 25 mg PO DAILY PRN (Reason: dizziness) aspirin [Adult Low Dose Aspirin] 81 mg tablet,delayed release (DR/EC) 81 mg PO DAILY Eliquis 5 mg Tablet 5 mg PO BID MDD 2 po BID for 6 days then 1 po Qty: 60 11RF Held citalopram 40 mg tablet 40 mg PO DAILY Hold Instructions: Resume on 09/05/25. sumatriptan succinate [Imitrex] 100 mg tablet 100 mg PO Q2H PRN (Reason: migraine headache) Hold Instructions: Resume on 09/06/25. Rx Instructions: do not exceed 2 doses per 24 hrs Print Language: Algerian Activity Restrictions/Additional Instructions: Please see your primary care physician, Dr. Mendez early next week Hold your citalopram as well as your sumatriptan while you are taking your antibiotic that we sent to the pharmacy You will need a blood work within a week since you are on this antibiotic We will set you up with orthopedics, Dr. Olivera I will have to see your fracture/healing next week or 2. Forms: Portal Instructions
[2025-08-25] MEDS: VANCOMYCIN HCL 1,500 MG in 0.9 % SODIUM CHLORIDE 500 ML 250 MG IV (10:20)
[2025-08-25] MEDS: GABAPENTIN 300 MG CAPSULE 600 MG PO (12:41)
[2025-08-25] MEDS: DOXAZOSIN MESYLATE 2 MG TABLET 8 MG PO (12:42)
--- NOTE | 2025-08-27 14:06 | CM.DCFOLLOWU ---
Person spoke with:Alden How are you feeling? Better How is your pain? Better Did you understand your discharge instructions? Yes Do you have any questions about your discharge instructions? No Were you given any prescriptions at discharge? Yes Were you able to get your prescriptions filled? Yes Do you understand how to take your medications as ordered? Yes Do you have any questions about your follow up appointment and do you plan to keep your follow up appointment? No questions. The patient was told about his follow up appts with Dr. Mendez on 08/30 at 10:[address] Olivera (Ortho) on 09/10 at 11:15 Is there anything else that you would like to discuss? No Questions/Comments/Concerns/Other:
== END 2025-08-25 13:35 | disposition home or self-care (01) | DRG 383 ==
LOC: ER 06:46 → MS 08:26
PROVIDERS: Admitting Provider Student in an Organized Health Care Education/Training Program; Emergency Provider Internal Medicine; PCP Family Medicine; Visit Provider Student in an Organized Health Care Education/Training Program
DX: L03.115 Cellulitis of right lower limb (principal); G62.9 Polyneuropathy, unspecified; R73.03 Prediabetes; L02.611 Cutaneous abscess of right foot; M86.8X7 Other osteomyelitis, ankle and foot; Z79.01 Long term (current) use of anticoagulants; Z79.82 Long term (current) use of aspirin; L97.512 Non-pressure chronic ulcer of other part of right foot with fat layer exposed; Z79.899 Other long term (current) drug therapy; Z89.412 Acquired absence of left great toe; I10 Essential (primary) hypertension; Z98.1 Arthrodesis status; M47.26 Other spondylosis with radiculopathy, lumbar region; S82.201K Unspecified fracture of shaft of right tibia, subsequent encounter for closed fracture with nonunion; Z86.14 Personal history of Methicillin resistant Staphylococcus aureus infection; Z86.718 Personal history of other venous thrombosis and embolism; B95.62 Methicillin resistant Staphylococcus aureus infection as the cause of diseases classified elsewhere
CPT/HCPCS: 36415; 73590; 73630; 73700; 74176; 76376; 80048; 80053; 80061; 80202; 83036; 83605; 83735; 84484; 85007; 85025; 85027; 85652; 86140; 87040; 87070; 87075; 87077; 87186; 93306; 93925; 93970; 96365; 96367; 99285; J0736; J1335; J2270; J3373

== ENCOUNTER 2025-08-29 09:03 | Outpatient (OUT) | payer MEDICAID, SELFPAY ==
--- OUTSIDE RECORDS SUMMARY | 2025-08-21 19:37 | XMS_ITS | Continuity of Care Document ---
Author Organization [facility] Address [address] [place] [address] Phone Care Team Providers Care [employer] Officer Name Role Phone Caden Mendez MD Primary Care Provider [phone] Jameel Coats DO Attending Provider Bonnie Ernandez MD Attending Provider Trey Vallejo DPM Attending Provider [phone] Care Teams Visit Care Team Team Status: Inactive Member Role/Relationship Status Dates Caden Mendez MD Primary Care Provider Active Start: May 29, 2025 End: May 29, 2025Juapoorva Coats DOAttending ProviderActiveStart: May 29, 2025 End: May 29, 2025 Visit Care Team Team Status: Inactive Member Role/Relationship Status Dates Bonnie Ernandez MD Attending Provider Active Sta rt: June 20, 2025 End: June 20, 2025 Patient Care Team Team Status: Inactive Member Role/Relationship Status Dates Trey Vallejo DPM MS Attending Provider Active Start: August 21, 2025 End: August 21, 2025 Chief Complaint and Reason for Visit Chief Complaint Admit Date S8.201A S82.401A M89.369 May 3:26pm Unknown June 20, 2025 1: 07pm Allergies, Adverse Reactions, Alerts Allergen Type Severity Reaction Last Updated Verified Status Corticosteroids (Glucocorticoids) Allergy Unknown Blurry Vision May 07, 2025 10:59am Yes Active Social History Smoking Status Status Start Date End Date Date of Observa tion Ex-smoker (finding) May 15, 2018 8:28am Observation Status Observation Response Date of Response Legal Sex Male (finding) Sex Assigned At [facility] 1970 Problems Inactive/Resolved Problems Problem Diagnosis/Recorded Date Onset Date Status C omments Herniation of cervical intervertebral disc with radiculopathy May 15, 2018 7:25am Unknown Resolved Pr oblem List clean-up per request of Phys. EHR Cmte Weakness of left upper extremity May 15, 2018 7:26am Unknown Resolved Probl em List clean-up per request of Phys. EHR Cmte Left upper extremity numbness May 15, 2018 7:26am Unknown Resolved Probl em List clean-up per request of Phys. EHR Cmte Medications Medication Status Dose Units Route Directions Qty Days Refills S tart Date Stop Date End Date Reason(s) Instructions Adherence Biotin 10 mg Tablet Active 10 MG PO Daily May 13, 2018 11:00pmUnknownGabapentin 600 mg YzdgshJnveki452LGWSXagbr times dailyAugust 2017 11:00pmUnknownCarvedilol 12.5 mg TyhjipDkqbxj61.5MGPO Twice dailyAugust 2017 11:00pmUnknownSumatriptan Succinate 100 mg Tablet Ztmuqg246HMUEUVAZF 2-4 HOURS as needed for Migraine HeadacheAugus2017 11:00pmUnknownClonazepam 0.5 mg TabletActive0.05mg/kgPOBedtimeAugust 2017 11:00pmUnknownOmeprazole 40 mg Capsule,Delayed Release(Dr/Ec)Wbqota95GZBRHbceo dailyAugust 2017 11:00pmUnknownAspirin 81 mg Tablet,Delayed Release (Dr/Ec)Apywrl56SINBJiduuFyhbna 2017 11:00pmUnknownSimvastatin 20 mg Tablet Hzshas35KYOBAaeufGvezup 2017 11:00pmUnknownLisinopril 10 mg YcbqyaBggfmf08 MGPODailyAugust 2017 11:00pmUnknownDiclofenac Sodium 75 mg Tablet,Delayed Release (Dr/Ec)Wfcvzd99IZAOYmuhn dailyAugust 2017 11:00pmUnknown Ondansetron 4 mg Tablet,NezqthgjeyoijkOvgahi1IHRFpiune 6 to 8 hours as needed for Nausea And VomitingAugust 2017 11:00pmUnknownDiazepam 5 mg Tablet Eurbhu0XSFYPgaobuwLocrxb 2017 11:00pmUnknownTizanidine 4 mg CapsuleActive4 MGPOBedtimeAugust 2017 11:00pmUnknownVit D3-Folic Endy-V5-P9-B12 2,000-800-0.32 unit-mcg-mg QgijewEakzew5MITCJIoeqdYaceam 2017 11:00pm UnknownAmantadine Hcl 100 mg tabletDiscontinuedMGPOAuunm sandoval regional medical centert 2024 11:00pm Glycopyrrolate 1 mg tabletDiscontinuedMGPOAuunm [facility] regional medical centert 2024 11:00pmCarvedilol 25 mg tabletDiscontinuedMGPOBon Secours Memorial [facility] Centert 2024 11:00pmCitalopram 40 mg tablet DiscontinuedMGPOBon [facility]2024 11:00pmModafinil 200 mg tabletDiscontinuedMGPO May 06, 2025 11:00pmPantoprazole 40 mg tablet,delayed release (DR/EC) DiscontinuedMGPOBon Secours [facility] Center2024 11:00pmFurosemide 20 mg tabletDiscontinuedMGPO May 06, 2025 11:00pmApixaban (Eliquis) 5 mg tabletDiscontinuedMGPOAuunm [facility] medical centert 2024 11:00pm Procedures Procedure Date Performed Status CT lower leg RT wo con May 29, 2025 2:28 pm completed Aerobic Culture August 21, 2025 active Anaerobic Culture August 21, 2025 active Gram Stain August 21, 2025 active Relevant Diagnostic Tests and/or Laboratory Data Diagnostic Imaging Reports Author [facility] HospitalAuthoredSeptember 2024 11:29pmReport Dictated Date/TimeDictated ByStatusRadiology ReportSeptember 2024 11:29pm Francis Irving II [facility] [place] [address] CT Scan Report Signed Patient: Alden Garces MR#: [id number] : 1970 Acct:[id number] Age/Sex: 54 / M ADM Date: 5 Loc: CT Room: Type: [facility] CLI Attending Dr: Jameel Coats DO Copies [...] intact. There is lucency surrounding the intramedullary madhu along the distal aspect of the fracture [...] may represent osteopenia secondary to disuse. Additionally th is may represent sequelae of chronic regional pain syndrome. CT/CT lower leg RT wo con IMPRESSION: There is lucency surrounding the intramedullary madhu along the distal aspect of the fracture [...] Irving M.D. 05/29/2025 11:40 PM Dictation Location: [id number] Transcribed By: [facility] 05/29/25 2340 Dictated By: Francis Irving II, MD 05/29/25 2329 Signed By: <Electronically signed by Francis Irving II, MD in OV> 05/29/25 2340 Advance Directives Advance Directive Response Recorded Date/ Time Advance Directives No May 11:42am Insurance Providers Guarantor Alden Garces Address [address] [place] [id number] Info.Home Phone: Coverage Status Update:2025 Payer Group Member ID Coverage Type Subscriber Relationship to Subscriber Effective Date Expiration Date [employer] [place] [employer] [id number] T Stein Id: [id number] [place] [address] [address] [place] [phone] Home Phone: [employer] Id: [id number] T Stein Id: [id number] [address] [place] [phone] Home Phone: Self Encounters Encounter Location(s) Arrival/Admit Date Discharge/Departure Date Discharge/Departure Disposition Provider(s) Departed Clinical -CT Scan [facility] May 29, 2025 3:26pm May 29, 2025 3:27pm Discharged to home care or self care (routine discharge) Jameel Coats DO Departed Referred -LAB Path Spec [facility] June 20, 2025 1:07pm June 20, 2025 1:08pm Discharged to home care or self care (routine discharge) Bonnie Ernandez MD Departed Referred -LAB Path [facility] August 21, 2025 2:15pm August 21, 2025 2:16pm Discharged to home care or self care (routine discharge) Trey Vallejo DPM MS Plan of Treatment Future Tests Future scheduled test information is unavailable Pending Tests Test Name Ordered Date Scheduled Date Aerobic Culture August 21, 2025 2:15pm Anaerobic CultureDeceer 2024 2:15pmGram StainDecember 2024 2:15pm Miscellaneous Pathology TestOctober 2024 1:07pm Future Visits Future appointment information is unavailable Future Procedures Procedure Name Ordered Date Scheduled Date Pathology Request for Lab Mal[place] June 22 7:55am June 20, 2025 12:07pm Wound Culture (Deep) August 21, 2025 9:37pm D ecember 2024 2:15pm Future Medications Future medication information is unavailable Patient Instructions Patient instructions are unavailable
--- OUTSIDE RECORDS SUMMARY | 2025-08-29 09:06 | XMS_ITS | Clinical Summary ---
Author Organization [facility] Address [address] [place] [address] Care Team Providers Care Land Title Examiner Name Role Phone Caden Mendez MD Primary Care Provider [phone] Allergies No known active allergies Medications MedicationSigDispense [...] Last Filed Vital Signs Vital SignReadingTime TakenCommentsBlood Rzznnexi633/29194 12:54 PM EDT Fnaxy693004/06/2012 12:54 PM ITIGwesighgwog39.1 ??C (98.7 ??F)04/06/2012 12:54 PM EDTRespiratory Rate--Oxygen Saturation--Inhaled Oxygen Concentration--Weight 107.5 kg (237 lb)04/06/2012 12:54 PM EDTHeight--Body Mass Index-- Plan of Treatment Health MaintenanceDue DateLast DoneCommentsAnxiety Brdrqgzmq89/21/1988Depression Hbiyufguh91/21/1988HIV Qqcfjsmup47/21/1988Hepatitis C Lyuxozsaf91/21/1988 DTaP,Tdap,Td Vaccine (1 - Tdap)1988Hepatitis B Vaccine (1 of 3 - 19+ 3- dose series)1988Lipid Zsrwsufdo91/21/2005CT Jcznkofomcfs53/21/2015 Cologuard (FIT-DNA)10/03/20141065Efazaqzfwnf82/21/2015Colorectal Cancer Screening 2014Fecal Occult Blood2014Prostate Cancer Screening Discussion 10/03/20149256Ehpyzndrwrafy06/21/2015Diabetes Jwjrkjsvd63 Pneumococcal Vaccine: 50+ (1 of 1 - PCV)2019Shingrix Vaccine (1 of 2) 2019Covid-19 Vaccine (1 - 2024- season)2025Influenza Vaccine (#1) 2025 Procedures Procedure NamePriorityDate/TimeAssociated DiagnosisCommentsCOMPREHENSIVE METABOLIC SYFGCItjamnj02/04/2012 1:47 PM EDT Myalgia from Last 3 Months or Most Recently Relevant to Health Maintenance Results * (ABNORMAL) COMP METABOLIC PANEL (05/17/2012 1:47 PM EDT)ComponentValueRef RangeTest MethodAnalysis TimePerformed AtPathologist SignatureProtein, Total 7.56.0 - 8.4 g/dLMEMORIAL HEALTH SYSTEM [facility] MAIN LABORATORYAlbumin4.83.5 - 5.0 g/dL [facility] MAIN LABORATORYCalcium9.68.5 - 10.5 mg/dLGRANT [facility]OSPITAL LABORATORYBilirubin, Total0.30.0 - 1.5 mg/dLGRANT HOSPITAL LABORATORYAlkaline Kxqozqswwyv7445 - 150 U/LCSUMMA HEALTH LABORATORY ODH131 - 40 U/LCSUMMA HEALTH LRIDKIOHIHRpfmdma48(L)65 - 100 mg/dL [facility] ODSIWTZWKUXYE3476 - 25 mg/dLGRANT HOSPITAL LABORATORYCreatinine1.000.70 - 1.40 mg/dLGRANT HOSPITAL LABORATORY Oybyhr885476 - 146 mmol/LCSELECT MEDICAL [facility] MAIN LABORATORYPotassium3.53.5 - 5.0 mmol/LCSELECT [facility]ICAL [facility] MAIN FAVZRQLTZJJkulrmfn74007 - 110 mmol/LCSUMMA HEALTH CSLMYLXEBTZA96061 - 32 mmol/LCSELECT [facility] MAIN LABORATORYAnion Hra160 - 15 mmol/LCSELECT [facility] EBERGSJXITEXI433 - 50 U/LCSUMMA HEALTH LABORATORYeGFR->60[facility] eGFR-All Other Races>60.[facility] LABORATORYComment: eGFR (Estimated GFR) Units of measure: [...] StatusJoan Smith MDLABORATORYFinal ResultPerforming OrganizationAddressCity/State/ZIP CodePhone Number [facility] [address] [place] [address] from Last 3 Months or Most Recently Relevant to Health Maintenance Insurance Care Teams Team MemberRelationshipSpecialtyStart DateEnd Date Caden Mendez MD PCP - GeneralFamily Medicine03/08/12
--- OUTSIDE RECORDS SUMMARY | 2025-08-29 09:06 | XMS_ITS | Clinical Summary ---
Author Organization [facility] Address [address] [place] [address] Care Team Providers Care Monotype Keyboard Operator Name Role Phone Unavailable Primary Care Provider Unavailabl e Source Comments The following information is NOT included in Care Everywhere downloads:Psychiatric notes, ECG results, Cardiac Rehab notes, Pulmonary Function notes, data from [email or web address] (includes but not limited toPregnancy data,audiograms, eye exams, pre-surgical evaluation notes, well-child exam data).[facility] Medications MedicationSigDispense QuantityRefillsLast FilledStart DateEnd DateStatus [...] InformationValueDate RecordedSex Assigned at BirthNot on fileLegal ZfyXroc96/12/2012 1:17 PM ESTGender IdentityNot on file Sexual OrientationNot on file Plan of Treatment Health MaintenanceDue DateLast VzsgClmbdthwFfbgyocvonf12/21/1970HIV Test 1984Hepatitis C Tonhxtam57/21/1988Tdap Nsuxvxq7410/03/1987Hepatitis A (HAV) Vaccine (optional start 19+ years)1988Hepatitis B (HBV) Vaccine (1 of 3 - 19+ 3-dose series)1988Tetanus (Td or Tdap) Eqccrnc2910/03/1988Cholesterol 2004CRC Byxcijyae22/21/2015Cologuard (Stool DNA)2014FIT2014 Pneumococcal Vaccine(s) (50+ yrs) (1 of 1 - PCV)2019Shingles (RZV) Vaccine (1 of 2)2019COVID-19 Vaccine (1 - 2024- season)2025Influenza Vaccine (#1)2025 Insurance
--- OUTSIDE RECORDS SUMMARY | 2025-08-29 09:06 | XMS_ITS | Clinical Summary ---
Author Organization [facility] Healthcare Address [address] [place] [address] Care Team Providers Care Psychologist Military Personnel Name Role Phone Caden Mendez MD Primary Care Provider [phone] Allergies Active AllergyReactionsCriticalityNoted WwlaLfpzsqpnFdxdfnvnUfabiit54/26/2021 YhgulczibhtEwlnvem97/26/2021Morphine And IdghezjBptlccz14/26/8730Rrulb21/26/2021 Other Reaction(s): Unknown, will accelerate blindness in [...] each day at the same timeActive HYDROcodone-acetaminophen ([place]) 5-325 MG tablet 03/20/2024ctive cholecalciferol (Vitamin D-3) [...] THE MORNING AND AT NOON 60 tablet 11005/16/4851386Active modafinil (Provigil) 200 MG tablet Indications:Excessive daytime sleepiness,Obstructive sleep apneaTake 1 tablet (200 mg) by mouth in the morning and at noon 60 tablet 506Active Active Problems ProblemNoted DateDiagnosed DateCellulitis of left lower qqgoafnrg93/26/2025Open wound of left great toe10/08/2024Narcolepsy cataplexy bnzdcowm10/22/2025Obese 09/24/2024losed fracture of right fibula and tibia09/23/2024Fall at home, initial hidzknnqm58/11/2025Weakness of left upper /17/2024Left upper extremity vceqmrsa20/17/2024Herniation of cervical intervertebral disc with bnsdamilegrfy89/17/2024ecreased testosterone level06/24/2023egeneration of lumbosacral intervertebral disc06/24/2023iabetes mellitus without complication 06/24/20233542Vgxvzvqenvppx15/12/2023Impotence of organic pjxmlx8606/24/2023Lateral ewirqgxyscncr52/12/2023Lumbar fawufinxfqkzu30/12/2023Systolic eejqop61 Unspecified inflammatory spondylopathy, lumbar atubgx1506/24/2023ardiovascular stress test lsdjionq01/09/2023Chest /09/2023ubital tunnel syndrome on right3Benign hypertensive cardiomyopathy with heart failure 3Chronic combined systolic and diastolic congestive heart failure, NYHA class Overview (10/15/2024): EF 45-50% with mild DD Diastolic dysfunction with chronic heart gywukiu5706/09/2023Non-ischemic dwznoadocxkzrp24/27/2023rimary zulvowqj83/29/2023Excessive daytime sleepiness 03/11/2023ervical paraspinal muscle spasm03/11/2023Nonpsychotic mental disorder due to organic brain wztrzz0506/26/2021pinal stenosis in cervical region 10/11/2018Cervical disc giustxcv18/19/2018Carpal tunnel syndrome of right wrist 03/24/2018Arthritis of right acromioclavicular joint12/30/2017Other chronic pain 12/30/2017Excessive /06/3711Tlflkgermvhgkpb41/29/2015Senile ucodtkjvytqcvs10/16/2015Urinary tract infectious grchcak0306/28/2014nkle edema 05/15/2014Ulnar nerve zfbithopdg56/01/5006Felkoekkh22/27/2013Cellulitis 03/31/2013Disorder of intervertebral disc of lumbar spine12/02/2012Muscle pain 12/02/2012Foot pain10/07/2012Clouded hpxgzigvdsqqq67/21/2540Jmaiykc02/21/2012 Yvqxfpp3311/30/2011Chest pain11/30/20111613Ejqftsxa42/17/2011Upper respiratory vrvlqhyst41/25/2011Joint pain09/03/2009Hypertensive fihuypoi46/05/2009Capillary vaubenqnig00/15/2008Diabetes rbeaooub67/11/2440Xjibdnkn22/21/2007nxiety /29/2006Impingement syndrome of shoulder pofybe5101/25/2003Obstructive sleep apnea11/06/2002History of dlsbdffuq36/29/1998 Encounters DateTypeDepartmentCare RltaHwmnlzgyutl87/10/2025Telephone [facility] [address] [facility] [address] [place] [address] Juliana Lambert MA 07/13/2025 2:40 PM EDTOffice Visit [facility] [address] [phone] Heather Miguel NP Cervical disc disorder (Primary Dx); Excessive daytime sleepiness; Obstructive sleep apnea; Intractable chronic migraine with aura with status migrainosus; Primary narcolepsy with cataplexy (HCC)07/13/2025amboo flowsheet [facility] [address] [place] [phone] Heather Miguel NP 07/13/20257230Oxhtdg57/09/2025Telephone [facility] [address] [place] [address] [place] [address] Radha Wright MA from Last 3 Months Family History Medical HistoryRelationNameCommentsDiabetesFatherGlaucomaMotherRelationName StatusCommentsFatherAliveMotherAlive Social History Tobacco UseTypesPacks/DayYears UsedDateSmoking Tobacco: NeverSmokeless Tobacco: Never Tobacco Cessation:Counseling Given: Not Answered Alcohol UseStandard Drinks/WeekCommentsNot Currently0 (1 standard drink = 0.6 oz pure alcohol)Sex and Gender InformationValueDate RecordedSex Assigned at Not on fileLegal NinEpyk2411/25/2022 7:12 PM EDTGender IdentityNot on fileSexual OrientationNot on file Last Filed Vital Signs Vital SignReadingTime TakenCommentsBlood Qcjuyovp601/6807/13/2025 3:09 PM EDT Zfgmr67789/23/2025 11:03 AM EDTTemperature--Respiratory Rate--Oxygen Saturation- -Inhaled Oxygen Concentration--Mhojlc469 kg (272 lb)07/13/2025 3:09 PM EDTHeight 188 cm (6' 2 )07/13/2025 3:09 PM EDTBody Mass Index34.9207/13/2025 3:09 PM EDT Plan of Treatment DateTypeDepartmentCare Team (Latest Contact Info)Fmlymjdzhno27/23/2026 1:20 PM ESTOffice Visit [facility] [address] [facility] [address] [place] [address] Christiano Geiger MD [address] [place] [address] Health MaintenanceDue DateLast DoneCommentsCT Eysbnlvujest15/21/1970Colonoscopy 1969Colorectal Cancer Noomdlpxs88/21/1970FIT-DNA1969FIT1969 FOBT1969 2734Monbgavfosjuz23/21/1970COVID-19 Vaccine ( season) , 12/24/2020, 12/02/2020Influenza VaccineCompleted 07/10/2025, 07/07/2024, 07/06/2023, Additional history existsPneumococcal Vaccine: Pediatrics (0 to 5 Years) and At-Risk Patients (6 to 64 Years)Aged Out No longer eligible based on patient's age to complete this topic Insurance * Guarantor: Alden Garces TAc TypeRelation to PatientDate of BirthPhone Billing AddressPersonal/UgpipcWggg80/21/1971 [address] [address] Care Teams Team MemberRelationshipSpecialtyStart DateEnd Caden Mendez MD [address] [place] [address] PCP - GeneralFamily Yonfsoov25/31/25
--- OUTSIDE RECORDS SUMMARY | 2025-08-29 09:06 | XMS_ITS | Encounter Summary ---
Author Organization [facility] Address [address] [place] [address] Care Team Providers Care Chef Saucier Name Role Phone Caden Mendez MD Primary Care Provider [phone] Encounter Details DateTypeDepartmentCare Team (Latest Contact Info)Ythrkycphjq74/10/2025Telephone [facility] [address] [facility] [address] [place] [address] Juliana Lambert MA Social History Tobacco UseTypesPacks/DayYears UsedDateSmoking Tobacco: NeverSmokeless Tobacco: NeverAlcohol UseStandard Drinks/WeekCommentsNot Currently0 (1 standard drink = 0.6 oz pure alcohol)Sex and Gender InformationValueDate RecordedSex Assigned at BirthNot on fileLegal GwiGzth3611/25/2022 7:12 PM EDTGender IdentityNot on file Sexual OrientationNot on filedocumented as of this encounter Miscellaneous Notes * Telephone Encounter - Juliana Lambert MA - 08/22/2025 8:51 PM EST Jaxon Gage called from [employer] stating he is over due for a medication [facility] at [phone] Looks like this is for the xywav documented in this encounter Plan of Treatment DateTypeDepartmentCare Team (Latest Contact Info)Kmqzhdbzfhn80/23/2026 1:20 PM ESTOffice Visit [facility] [address] [facility] [address] [place] [address] Christiano Geiger MD [address] [place] [address] documented as of this encounter Visit Diagnoses Not on filedocumented in this encounter Care Teams Team MemberRelationshipSpecialtyStart DateEnd Date Caden Mendez MD [address] [place] [address] PCP - GeneralFamily Srnygpbw55/31/25documented as of this encounter
--- OUTSIDE RECORDS SUMMARY | 2025-08-29 09:06 | XMS_ITS | Clinical Summary ---
Author Organization [facility] Address [address] [place] [address] Care Team Providers Care Bottom Pounder [employer] Name Role Phone Caden Mendez MD Primary Care Provider [phone] Christiano Geiger MD Unavailable [phone] Trey Vallejo DPM Unavailable [phone] Allergies No known active allergies Medications MedicationSigDispense [...] ProblemNoted DateDiagnosed DateCellulitis of left leg10/09/2024Left leg jlibqvezth93/26/2025 Assessment & Plan (10/08/2024 7:47 AM EST): Continue vanco and zosyn Ortho following Will get blood cultures Open wound of left great toe10/08/2024 Assessment & Plan (10/08/2024 8:36 AM EST): Will consult wound care HTN (hypertension)09/24/2024 Assessment & Plan (10/08/2024 7:47 AM EST): Continue modafinil, coreg PATEL (obstructive sleep apnea)09/24/2024Gastroesophageal reflux byjxlta2609/24/2024 Obese09/24/2024Fall at home, initial uhiokqekh24/11/2025losed fracture of right fibula and tibia09/23/2024 Assessment & Plan (10/08/2024 7:47 AM EST): Ortho following, concern for possible infection Admit to med surg Activity orders per ortho with LLE Cardiac diet Will get labs this morning and follow up on results Daily bmp and cbc to monitor kidney function, electrolytes, hgb and wbc Case will be discussed with attending physician Non-ischemic aqvsqnmtdtaoup33/27/2023iastolic dysfunction with chronic heart cyvlxrf4206/09/2023enign hypertensive cardiomyopathy with heart wmrvmar2206/09/2023 Chronic combined systolic and diastolic congestive heart failure, NYHA class 2 06/09/2023 Overview (06/09/2023): EF 45-50% with mild DD Assessment & Plan (10/08/2024 7:47 AM EST): Not in exacerbation Continue furosemide, coreg, asa Anxiety vjheqrcw06/29/2006 Assessment & Plan (10/08/2024 7:47 AM EST): Continue citalopram, clonazepam Social History Tobacco UseTypesPacks/DayYears UsedDateSmoking Tobacco: NeverSmokeless Tobacco: Never Tobacco Cessation:Counseling Given: Not Answered Alcohol UseStandard Drinks/WeekCommentsYes0 (1 standard drink = 0.6 oz pure alcohol)monthlyOHIO[facility] UtilitiesAnswerDate RecordedIn the past 12 months has the [employer], [employer], or water [employer] threatened to shut off services in your [...] or living in a snf (including now)? No10/08/2024Hunger Vital SignAnswerDate RecordedWithin the past 12 months, you worried that your food would run out before you got the money to buymore.Never true10/08/2024Ran Out of Food in the Last YearNot on file10/08/2024Sex and Gender InformationValueDate RecordedSex Assigned at CcniiKzip00/11/2025 11:46 AM ESTLegal XatWxuc7603/11/2022 10:17 PM EDTGender IzjdjyoxCguf12/11/2025 11:46 AM ESTSexual OrientationChoose not to iqzvolcj65/11/2025 11:46 AM EST Last Filed Vital Signs Vital SignReadingTime TakenCommentsBlood Ghacxpkw440/8810/11/2024 6:26 AM EST Ftwth8692/29/2025 6:26 AM LOZAjbsvcvnnfn55.7 ??C (98.1 ??F)10/11/2024 6:26 AM ESTRespiratory Nigh725310/11/2024 6:26 AM ESTOxygen Azrlpdraev73%10/11/2024 6:26 AM ESTInhaled Oxygen Concentration--Xlmkmv968 kg (231 lb 7.7 oz)10/10/2024 6:57 AM KXPRameow107 cm (6' 2 )10/08/2024 5:58 AM ESTBody Mass Index29.72010/08/2024 5:58 AM EST Plan of Treatment Health MaintenanceDue DateLast DoneCommentsCT Ruqhbqwjcjqk44/21/1970Colonoscopy 1969Colorectal Cancer Lmvcrabxi78/21/1970Diabetes: Hemoglobin A1C 1969FIT-DNA1969FIT1969FOBT1969 7241Gptlrcqpwmxmz16/21/1970 Diabetes: Retinopathy Ayttsoyyv78/21/1980Depression Rjyibrliz29/21/1982Diabetes: Urine Protein Acnvfkqtf80/21/1989Hepatitis B Vaccines (1 of 3 - 19+ 3-dose series)1988Pneumococcal Vaccine: Pediatrics (0 to 5 Years) and At-Risk Patients (6 to 64 Years) (1 of 2 - PCV)1988Adult Wuxvowc1910/03/1991Zoster Vaccines (1 of 2)2019COVID-19 Vaccine ( season)2025 [...] 09/24/2024 by Sandrine Field [facility]: CnzgrXkdxpsn91.043.145S / / [id number] Implanted:Qty: 1 on 09/24/2024 by Sandrine Field MD at [facility]: [id number] / / [id number] Implanted:Qty: 1 on 09/24/2024 by Sandrine Field MD [facility]: [id number] / / [id number] Implanted:Qty: 1 on 09/24/2024 by Sandrine Field MD [facility]: [id number] / / [id number] Implanted:Qty: 1 on 09/24/2024 by Sandrine Field MD [facility]: [id number] / / [id number] Insurance Advance Directives * Full Code (Latest Code Status on File) Date ActivatedDate InactivatedComments10/08/2024 7:17 AM10/11/2024 4:47 PM * Full Code Date ActivatedDate InactivatedComments09/23/2024 1:50 PM09/28/2024 8:43 PM Care Teams Team MemberRelationshipSpecialtyStart DateEnd Caden Mendez MD [address] [facility] [place] [address] PCP - General09/23/24 Christiano Geiger MD [address] [facility] [address] [address] 10/11/24 Trey Vallejo DPM Address: [address] [place] [address] [place] [address] Podiatr10/11/24
== END 2025-08-29 09:04 | disposition home or self-care (01) ==
LOC: WC 09:03
PROVIDERS: PCP Family Medicine; Visit Provider Podiatrist Foot & Ankle Surgery
DX: E11.621 Type 2 diabetes mellitus with foot ulcer (principal); L97.525 Non-pressure chronic ulcer of other part of left foot with muscle involvement without evidence of necrosis; L97.412 Non-pressure chronic ulcer of right heel and midfoot with fat layer exposed; L97.512 Non-pressure chronic ulcer of other part of right foot with fat layer exposed
CPT/HCPCS: 11042

== ENCOUNTER 2025-09-12 13:31 | Emergency (ER) | payer MEDICAID, SELFPAY ==
--- OUTSIDE RECORDS SUMMARY | 2022-08-24 05:16 | XMS_ITS | Continuity of Care Document ---
Author Organization [facility] Address [address] [place] [phone] Phone Care Team Providers Care Waste Handling Technician Name Role Phone Kiesha YAO Bora Unavailable Unavailable Procedures Procedure Date Denies Tobacco Use INTRAORAL:PERIAPICAL 1ST FILM LIMITED ORAL EVAL:PROBLEM FOCUSED Treatment Initiated Advance Directives Directive Yes / No Effective Date File Name No Information Encounters Encounter Description Practice Location Reason(s) For Visit Diagnoses Date Provider Providers Copied on Encounter [facility], [address] [place] [address], [id number], tel:[phone] [facility] No Information 2 Kiesha Sahni. [address] [place] [address], [id number] [place], [id number] , [place]. tel:[phone] [facility], [address] [place] [address], [id number], [place] tel:[phone] [place] [facility] S Main Encounter for dental exam and cleaning w/o abnormal findingsEncounter for dental exam and cleaning w abnormal findings 2 Juliane Burnette. [address] [place] [address], [id number] [place], [place], [id number] , [place]. tel:[phone] Family History Family Member Type Diagnosis Age At Onset No Information Payers Payer name Insurance type Covered democrat ID Alec campa(s) [employer] [id number] Social History Type Description Quantity Date Captured [...]
--- OUTSIDE RECORDS SUMMARY | 2025-03-15 05:00 | XMS_ITS ---
Author Organization The [facility] in [place] Address [address] [place] [address] Care Team Providers Care Barrel Endshake Adjuster Name Role Phone Kareem Mendez Primary Care Provider REASON FOR VISIT [facility] d/c-624 LEG PAIN Encounters Encounter Location Date Provider Diagnosis [facility] [address] [place] [address] 03/15/2025 Kareem Mendez Plan Of Treatment Next Appt Details Provider Name:Kareem Mendez, 10:45:00 AM, [address] [place], [address], Progress Notes * Alden WADE TDOB: 0 (54 yo M)Acc No.[id number]:03/15/2025 UNLOCKED PROGRESS NOTE Progress Note Patient: Francisco Javier VAZQUEZw Toni :?Caden WhittMarilee Mendez ([facility]), MDDOB:1970???Age: 54 Y???Sex:MaleDate:03/15/2025Phone:[phone]:[address] [facility] [address], [place], [place] Subjective: * Chief Complaints: * 1 . tb d/c-6/24 LEG PAIN. * Medical History: Objective: * Vitals: Assessment: Plan: * Treatment: * * Electronic signature of Kareem Mendez MD, [id number] on 09/12/2025 at 02:13 PM EST Sign off status: PendingVisit Status:?N/S N/C (No Show/No Charge) * Provider: Sarah Mendez ([facility])MD Date: 0 03/15/2025 Generated for Printing/Faxing/eTransmitting on:?09/12/2025 02:13 PM EST
--- OUTSIDE RECORDS SUMMARY | 2025-08-30 05:15 | XMS_ITS ---
Author Organization [facility] [place] Address [address] [place] [address] Care Team Providers Care Sanitation Officer Name Role Phone Andrea Kareem Primary Care Provider [phone] REASON FOR VISIT Hosp FU- R Foot Abcess, Cellulitis Encounters Encounter Location Date Provider Diagnosis [facility] [address] [place] [address] 08/30/2025 Kareem Mendez Plan Of Treatment Next Appt Details Provider Name:Kareem Mendez, 10:45:00 AM, [address] [place], [address], Progress Notes * Alden WADE TDOB: 0 (54 yo M)Acc No.[id number]:08/30/2025 UNLOCKED PROGRESS NOTE Progress Note Patient: Francisco Javier VAZQUEZw Toni :?Caden Cohn Andrea ([facility]), MDDOB:1970???Age: 54 Y???Sex:MaleDate:08/30/2025Phone:[phone]:[address] [facility] [address], [place], [place] Subjective: * Chief Complaints: * 1 . Hosp FU- R Foot Abcess, Cellulitis. * Medical History: Objective: * Vitals: Assessment: Plan: * Treatment: * * Electronic signature of Kareem Mendez MD, [phone] on 09/12/2025 at 02:13 PM EST Sign off status: PendingVisit Status:?CANCPHONE (Cancelled Phone) * Provider: Sarah Mendez ([facility])MD Date: 1 10/31/2024 Generated for Printing/Faxing/eTransmitting on:?09/12/2025 02:13 PM EST
--- OUTSIDE RECORDS SUMMARY | 2025-09-07 05:30 | XMS_ITS ---
Author Organization [facility] in [place] Address [address] [place] [address] Care Team Providers Care Rug Touch Up Painter Name Role Phone Kareem Mendez Primary Care Provider Allergies Allergen (clinical drug ingredient) Drug/Non Drug Allergy documented on EMR Reaction Allergy Type Onset Date Status hydrocodone Hydrocodone hives Drug Allergy ActivefentanylFentanylhivesDrug AllergyActive REASON FOR VISIT Presents to office for hospital follow up. Foot infection. Finished oral ATB 3 days ago Medications Medication SIG (Take, Route, Frequency, Duration) Notes Start Date End Date Status SUMAtriptan Succinate 100 MG 1 tablet at least 2 hours between doses as needed Orally Twice a day PRN ActiveSimvastatin 20 mgTAKE ONE TABLET BY MOUTH DAILY IN THE EVENING 30; Duration: 30ActiveXywav 500 MG/ML6ml Orally at lkaczlq38/16/2025Active Testosterone Cypionate 200 MG/MLInject 0.75 mL Intramuscular WEEKLY; Duration: 28 days5ActivePotassium Chloride ER 10 MEQTAKE ONE TABLET BY MOUTH TWICE A DAY WITH FOOD; Duration: 30ActiveSildenafil Citrate 25 MG1 tablet as needed Orally daily4ActiveProtonix 40 MG1 tablet Orally twice a day; Duration: 30 days5ActiveOndansetron 4 MG1 tablet on the tongue and allow to dissolve Orally Once a dayActiveMulti For Him 50+ -as directed Orally ActiveEpiPen 2-Doug 0.3 MG/0.3MLas directed Injection once5Active Gabapentin 600 mgTake 1 tablet orally once daily; Duration: 30 daysActive Furosemide 20 mgTAKE ONE TABLET BY MOUTH ONCE DAILY FOR 30 DAYS; Duration: 30 Not-TakingModafinil 200 MG1 tablet in the morning Orally BIDActiveMeclizine HCl 12.5 MG1 tablet as needed Orally prn every 12 hrsPRNActiveCholecalciferol 125 MCG (5000 UT)1 tablet on the tongue and allow to dissolve Orally Once a day ActiveCeleXA 40 MG1 tablet Orally Once a day; Duration: 30 days4Active Doxazosin Mesylate 4 MG1 tablet Orally Once a day; Duration: 90 daysActive Eliquis 5 MGTAKE TWO TABLETS BY MOUTH TWICE A DAY FOR 6 DAYS, THEN 1 TAB TWICE A DAY THEREAFTER Oral; Duration:30 DaysActiveCarvedilol 25 MG1 tablet with food Orally Twice a day; Duration: 30 days5ActiveAspirin 81 81 MG1 tablet Orally Once a dayActiveAmantadine HCl 100 MG1 tablet Orally BID; Duration: 30 daysActiveBiotin 10 MG1 tablet Orally Once a dayActive Social History Tobacco Use: Social History Observation Description Date Details (start date - stop date) Never Smoker NA - NA Tobacco Use/Smoking Question Answer Notes Patient is a nonsmoker AUDIT-C (Standard) Question Answer Notes Did you have a drink containing alcohol in the p ast year? 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, [place], [id number] In:10:23 AM ESTCheck Out:10:51 AM EST Subjective: * Chief Complaints: * P resents to office for hospital follow up. Foot infection. Finished oral ATB 3 days ago * HPI: ???General:? In [facility] -? - foot infection -. ???Interim History:? Patient presents for high blood pressure check. Doing well on medication. Denies chest pain, palpitations, lightheadedness, or vision changes. * ROS: ???General/Constitutional:?Lightheadedness?denies.?Fever?denies.?Headache?denies.?Cardiovascular:?Chest pain?denies.?Palpitations?denies.?Respiratory:?Cough?denies.?Shortness of breath?denies.? * Active Problem List E29.1 Decreased testostero ne level Modified On:12/06/2023W/U Status:tywzcmmsfA09.16Lumbar radiculopathy Modified On:06/02/2023/U Status:fbfplbidmJ16.10Hypersomnia Modified On:10/29/2023/U Status:mpqerzuzqR77Wwdjfdqe murmur Modified On:05/27/2023/U Status:cybflikleZ59Kmhhkmhzopokp Modified On:05/27/2023/U Status:lepvpgekqQ33.37Degenerative disc disease at L5- S1 level Modified On:05/27/2023 Status:xcovqjmaeS33.96Lumbar spondylitis Modified On:05/27/2023 Status:gploqkdfoU61.9Diabetes Modified On:05/27/2023 Status:wlimexbxnA22.90Cervical disc disease Modified On:05/27/2023 Status:bczidbihxT99.00Carpal tunnel syndrome Modified On:05/27/2023 Status:zoorikiexT16.10Lateral epicondylitis Modified On:05/27/2023 Status:cuioufiatN81.29Chronic pain Modified On:06/02/2023 Status:johpzstvbP54.9GERD (gastroesophageal reflux disease) Modified On:05/27/2023 Status:hmrhnuypmK81.00Insomnia Modified On:05/27/2023 Status:visrgqyicQ49.9Impotence Modified On:05/27/2023 Status:prhbpynobE65.9Anxiety Modified On:05/27/2023 Status:umhnyhdetE85.33OSA (obstructive sleep apnea) Modified On:05/27/2023 Status:yhxmtdtliV29.909Migraine Modified On:08/11/2023 Status:jvdniplsqE61.90Cellulitis Modified On:08/25/2023 Status:usrcwqbiyQ43.11Right upper quadrant abdominal pain Modified On:10/13/2023U Status:vmotjioapG47.9Pneumonia Modified On:11/12/2023U Status:oiazzcnqrD71.519Foot ulcer, right Modified On:12/01/2023U Status:srxgslcnkM71.9Bursitis Modified On:12/20/2023 Status:gkmnalyolS69.512Chronic ulcer of right foot with fat layer exposed Modified On:12/28/2023U Status:lhghurelgD39.621Type 2 diabetes mellitus with foot ulcer Modified On:03/06/2024U Status:xyyyzzlmiA45.402ALeft fibular fracture Modified On:03/15/2024U Status:szhzirsswZ63.672Charcot's joint, left ankle and foot Modified On:04/04/2024 Status:xekkcphobH83.42Controlled type 2 diabetes mellitus with diabetic polyneuropathy, unspecified whether ocean transportation intermediary insulin use Modified On:04/10/2024 Status:edbafkljuN66.572Left ankle pain Modified On:04/20/2024 Status:uvnrlixuiF97.9Diabetes mellitus Modified On:04/24/2024 Status:citayiojhC80.9Depression Modified On:07/06/2024 Status:nycmolkltM03.522Chronic ulcer of great toe of left foot with fat layer exposed Modified On:09/18/2024 Status:hlcacvllaC08.22Acute and chronic respiratory failure with hypercapnia Modified On:09/22/2024 Status:fdxjtscmhR42.33Obstructive sleep apnea (adult) (pediatric) Modified On:09/22/2024 Status:zfxmngzkbZ73.00Insomnia, unspecified Modified On:09/22/2024 Status:xdabndzcpV11.38Body mass index [BMI] 38.0-38.9, adult Modified On:09/22/2024 Status:cwhfihfxhU93Ucgyffuetatp Modified On:10/16/2024 Status:ctwagzjuxT86.525Non-pressure chronic ulcer of other part of left foot with muscle involvement without evidence of necrosis Modified On:10/30/2024 Status:xvfxwawqsO11.90Otitis externa Modified On:12/13/2024 Status:uqozfgkxiX57.92Otitis externa of left ear Modified On:12/14/2024 Status:ecuuwhertN81.89Amputation stump pain Modified On:07/11/2025 Status:ngzcdlyzlO46.52Gangrene associated with type 2 diabetes mellitus Modified On:07/11/2025 Status:confirmed * Medical History: * Surgical History: V ASECTOMY UVULOPLASTY TONSILLECTOMY RIGHT SHOULDER CERVICAL DECOMPRESSION REVISED C6-C7 OSTEOTOMY HEAD OF FIRST PHALANX ORIF left ankle Lateral Malleolus Fx, Closed Reduction Post Malleolus Fx 03/15/24Left Great Toe Amputation 06/2025I&D right foot * Hospitalization/Major Diagno stic Procedure: s ee above cervical surgery 2019cervical 2018Great Toe Amputation 06/2025Foot infection 09/06 * Family History: F ather: alive 85 yrs, diagnosed with Heart Disease, Arthritis, Diabetes. M other: alive 78 yrs. B rother(s): alive. S ister(s): alive. S on(s): alive. D miquelhter(s): alive. 4 brother(s) , 2 sister(s) - healthy. 1 son(s) , 1 daughter(s) - healthy. . * Social History: ???Tobacco Use:?Tobacco Use/Smoking?Patient is a?nonsmoker ???Drug/Alcohol:?AUDIT-C (Standard)?Did you have a drink containing alcohol in the past year??No ?Points?0 ?Interpretation?Negative * Medications: T akingAmantadine HCl 100 MG [...] MG/0.3ML Solution Auto-injector as directed Injection once Gabapentin 600 mg Tablet Take 1 tablet [...] allow to dissolve Orally Once a day Potassium Chloride ER 10 MEQ Tablet Extended Release TAKE ONE TABLET BY MOUTH TWICE A DAY WITH FOOD Protonix(Pantoprazole Sodium) 40 MG Tablet Delayed Release 1 tablet Orally twice a day Sildenafil Citrate 25 MG Tablet 1 tablet as needed Orally daily Simvastatin 20 mg Tablet TAKE ONE TABLET BY MOUTH DAILY IN THE EVENING 30 SUMAtriptan Succinate 100 MG Tablet 1 tablet [...] Solution Auto-injector as directed Injection once Taking Gabapentin 600 mg Tablet Take 1 [...] to dissolve Orally Once a day Taking Potassium Chloride ER 10 MEQ Tablet Extended Release TAKE ONE TABLET BY MOUTH TWICE A DAY WITH FOOD Taking Protonix(Pantoprazole Sodium) 40 MG Tablet Delayed Release 1 tablet Orally twice a day Taking Sildenafil Citrate 25 MG Tablet 1 tablet as needed Orally daily Taking Simvastatin 20 mg Tablet TAKE ONE TABLET BY MOUTH DAILY IN THE EVENING 30 Taking SUMAtriptan Succinate 100 MG Tablet 1 tablet at least 2 hours between doses as needed Orally Twice a day , Notes to Pharmacist: PRNTaking Testosterone Cypionate 200 MG/ML Solution Inject 0.75 mL Intramuscular WEEKLY Taking Xywav(Ca, Mg, K, and Na Oxybates) 500 MG/ML Solution 6ml Orally at bedtime Not-Taking/PRNFurosemide 20 mg Tablet TAKE ONE TABLET BY MOUTH ONCE DAILY FOR 30 DAYS Not-Taking/PRN Furosemide 20 mg Tablet TAKE ONE TABLET BY MOUTH ONCE DAILY FOR 30 DAYS DiscontinuedGlycopyrrolate 1 mg Tablet TAKE ONE TABLET BY MOUTH TWICE A DAY Medication List reviewed and reconciled with the patientDiscontinued Glycopyrrolate 1 mg Tablet TAKE ONE TABLET BY MOUTH TWICE A DAY Medication List reviewed and reconciled with the patient * Allergies: F entanyl: hives - Allergy - Criticality HighHydrocodone: hives - Allergy - Criticality Highno[Allergies Verified] Objective: * Vitals: W t:272.6lbs, Ht: 75 in, BP:112/78mm Hg, BMI:34.07Index, Ht-cm: 190.5 cm, Wt-k.65 kg. * Examination: ???General Examination: ?GENERAL APPEARANCE:? in no acute distress, well developed,well nourished.?LUNGS:? clear to auscultation bilaterally.?CARDIO:? regular rate and rhythm, S1, S2 normal, no murmurs.?Lower Extremities: ???R leg with chroic venosu inusfficiency -. Assessment: * Assessment: 1.?Cellulitis - L03.90 (Primary)??? Plan: * Treatment: Notes: non-unial of tibia - seeing ortho for that?? * Procedure Codes: * Preventive Medicine: ??Screenings/Counseling:?BMI ACTION PLAN?Above Normal BMI Follow-up?Dietary management education, guidance, and counseling See treatment section of progress note for complete details of management plan. * * Sign off status: CompletedVisit Status:?CHK (Check Out) true * Provider: Sarah Mendez ([facility])MD Date: 1 11/08/2024 Generated for Printing/Faxing/eTransmitting on:?09/12/2025 02:12 PM EST History and Physical Notes * HPI (History of Present Illness) CategorySub-CategoryDetailNotesCategory NotesGeneralIn [facility] - - foot infection - Examination CategorySub-CategoryDetailNotesCategory NotesLower ExtremitiesR leg with chroic venosu inusfficiency -General ExaminationGENERAL APPEARANCE:in no acute distress, well developed, well nourishedCARDIO:regular rate and rhythm, S1, S2 normal, no murmursLUNGS:clear to auscultation bilaterally
--- OUTSIDE RECORDS SUMMARY | 2025-09-10 06:54 | XMS_ITS | Continuity of Care Document ---
Author Organization [facility] Address [address] [place] [address] Phone Care Team Providers Care Parcel Post Officer Name Role Phone Bonnie Ernandez MD Attending Provider [phone] Trey Vallejo DPM Attending Provider [phone] Jameel Coats DO Attending Provider [phone] Caden Mendez MD Primary Care Provider Care Teams Patient Care Team Team Status: Active Member Role/Relationship Status Dates Caden Mendez MD Primary Care Provider Active Visit Care Team Team Status: Inactive Member Role/Relationship Status Dates Bonnie Ernandez MD Attending Provider Active Sta rt: June 20, 2025 End: June 20, 2025 Visit Care Team Team Status: Inactive Member Role/Relationship Status Dates Trey Vallejo DPM MS Attending Provider Active Start: August 21, 2025 End: August 21, 2025 Patient Care Team Team Status: Inactive Member Role/Relationship Status Dates Jameel Coats DO Attending Provider Active S tart: September 10, 2025 End: September 10, 2025Jimmy Bray Care ProviderActiveStart: September 10, 2025 End: September 10, 2025 Chief Complaint and Reason for Visit Chief Complaint Admit Date Unknown June 20, 2025 1: 07pm OP SP RT TIB FX September 10, 2025 11:18am Reason for Visit Admit Date Hypertrophy of bone of lower leg Leonides khalil 2024 11:18am Fracture of right tibia and fibula Decem carmen 2024 11:18am Right leg pain September 10, 2025 11:18am Allergies, Adverse Reactions, Alerts Allergen Type Severity Reaction Last Updated Verified Status Corticosteroids (Glucocorticoids) Allergy Unknown Blurry Vision September 10, 2025 11:19am Yes Active Social History Smoking Status Status Start Date End Date Date of Observa tion Ex-smoker (finding) May 15, 2018 8:28am Observation Status Observation Response Date of Response Legal Sex Male (finding) Sex Assigned At [facility] 1970 Problems Inactive/Resolved Problems Problem Diagnosis/Recorded [...] 10 MG PO Daily May 13, 2018 11:00pmComplies with drug therapyGabapentin 600 mg Tablet Tjgloc531ZYXBGegkw times dailyAugust 2017 11:00pmComplies with drug therapyCarvedilol 12.5 mg MnsgvzGfjhtf79.5MGPOTwice dailyAugust 2017 11:00pmComplies with drug therapySumatriptan Succinate 100 mg WoqfjcGtdseq945XU POEVERY 2-4 HOURS as needed for Migraine HeadacheAugust 2017 11:00pm Complies with drug therapyClonazepam 0.5 mg TabletActive0.05mg/kgPOBedtimeAugust 2017 11:00pmComplies with drug therapyOmeprazole 40 mg Capsule,Delayed Release(Dr/Ec)Rsshmo48KDSRCuljs dailyAugust 2017 11:00pmComplies with drug therapyAspirin 81 mg Tablet,Delayed Release (Dr/Ec)Yluaxz54NCBIIwwvwWklmus 2017 11:00pmComplies with drug therapySimvastatin 20 mg CrkkczWzgyfq31HGSNCndst May 13, 2018 11:00pmComplies with drug therapyLisinopril 10 mg TabletActive 10MGPODailyRiverside [facility]2017 11:00pmComplies with drug therapyDiclofenac Sodium 75 mg Tablet,Delayed Release (Dr/Ec)Mygywc25XLYFUwmnv dailyAuzia health clinic2017 11:00pmComplies with drug therapyOndansetron 4 mg Tablet,TvyamqeplzxzvuImdnyg9BD POevery 6 to 8 hours as needed for Nausea And VomitingAuzia health clinic2017 11:00pm Complies with drug therapyDiazepam 5 mg ZeaijaGswgev2SBVXYpapddeTivowk 31st, 2018 11:00pmComplies with drug therapyTizanidine 4 mg MpgpfdxRbwakr1VVMXPscrwue May 13, 2018 11:00pmComplies with drug therapyVit D3-Folic Paup-C6-Q6-B12 2,000-800-0.32 unit-mcg-mg GxmlafNccetw2ZVIHMIvcpcPmmfof 31st, 2018 11:00pm Complies with drug therapyAmantadine Hcl 100 mg tabletActiveMGPORiverside [facility] Hospital2024 11:00pmComplies with drug therapyGlycopyrrolate 1 mg tabletActiveMGPORiverside [facility] Hospital2024 11:00pmComplies with drug therapyCarvedilol 25 mg tabletActiveMGPO May 06, 2025 11:00pmComplies with drug therapyCitalopram 40 mg tabletActive MGPiedmont [facility]wnan2024 11:00pmComplies with drug therapyModafinil 200 mg tablet ActiveMGPORiverside [facility] Hospital2024 11:00pmComplies with drug therapyPantoprazole 40 mg tablet,delayed release (DR/EC)ActiveMGPORiverside [facility] Hospital2024 11:00pmComplies with drug therapyFurosemide 20 mg tabletActiveMGPOLa [place]inta 2024 11:00pmComplies with drug therapyApixaban (Eliquis) 5 mg tabletActiveMGPORiverside [facility] Hospital2024 11:00pmComplies with drug therapy Procedures Procedure Date Performed Status Aerobic Culture August 21, 2025 completed Anaerobic Culture August 21, 2025 completed Gram Stain August 21, 2025 completed Relevant Diagnostic Tests and/or Laboratory Data Microbiology Results Procedure Source Result Collection Date/Time Result Date/Time Result Comment Performing Site Aerobic Culture Foot,Right, Drainage Methicillin Resis Staph Aureus August 21, 2025 2:15pm August 24, 2025 10:32am [facility] [id number] [address] [facility] [address]Udnrbkfhv CultureFoot,Right, DrainageNo Anaerobes Isolated 3 DaysDece2024 2:15pmDecember 2024 8:10am[facility] [id number] [address] [facility] [address]Tzlh StainFoot,Right, DrainageDecember 2024 2:15pmDeceer 2024 2:01pm[facility] [id number] [address] [facility] [address] Vital Signs Vital Reading Result Reference Range Collection Date/Time Height 74.5 [in_i] September 10, 2025 11:21ovCykofu456.20 kgDe2024 11:19amBMI (Body Mass Index)33.5 kg/n2Mhxysxvm 2024 11:19am Advance Directives Advance Directive Response Recorded Date/ Time Advance Directives No May 11:42am Insurance Providers Guarantor Alden Garces Address [address] [place] [id number] Info.Home Phone: Coverage Status Update:2025 Payer Group Member ID Coverage Type Subscriber Relationship to Subscriber Effective Date Expiration Date [facility] Medicaid [id number] T Stein Id: [id number] [id number] [facility] [address] Home Phone: Self[employer] Id: [id number] T Stein Id: [id number] [id number] [place] [address] [address] [facility] [address] Home Phone: Self Encounters Encounter Location(s) Arrival/Admit Date Discharge/Departure Date Discharge/Departure Disposition Provider(s) Departed Referred -[facility] June 20, 2025 1:07pm June 20, 2025 1:08pm Discharged to home care or self care (routine discharge) Bonnie Ernandez MD Departed Referred -[facility] August 21, 2025 2:15pm August 21, 2025 2:16pm Discharged to home care or self care (routine discharge) Trey Vallejo DPM MS Departed Physician/ Provider Office Visit -[facility] [place] September 10, 2025 11:18am September 10, 2025 11:51am Discharged to home care or self care (routine discharge) Jameel Coats , DO Recent Diagnosis Onset Date Admit Date Hypertrophy of bone of lower leg Unknown September 10, 2025 11:18am Fracture of right tibia and fibula Unknown September 10, 2025 11:18am Right leg pain Unknown September 10, 025 11:18am Assessments Diagnosis Onset Date Resolution Status Admit Date Hypertrophy [facility] bone [facility] 11:18amFracture of right tibia and fibula noneactiveLehigh [facility] 2024 11:18amRight leg painnoneactiveLehigh [facility] 2024 11:18am Plan of Treatment Author Jing Oliveros [facility] 20[facility] 11:48amAndrew presents s/p right tib/fib fracture intramedullary nail fixation and hypertrophic painful callus. At this juncture we have discussed the findings and diagnosis as well as personally reviewed appropriate imaging and performed interpretation of related testing and examination with the patient in office today. Prior medical notes from Dr. Mendez and history have been reviewed. I explained findings to the patient. With the hypertrophic callus and his ongoing pain there could be concern for possible infection. Clinically other than swelling there is no redness or warmth to the fracture site at this time. He was admitted to the hospital recently with a cellulitis and active ulcerations on his right foot which is being treated by Dr. Vallejo. ESR was 66 and CRP was 2.66 at admission. 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 The patient has been involved in our cooperative treatment plan and agrees to move forward with treatment at this time. Reviewed imaging with the patient in detail. Advised patient he could have a revision operation, a possible staged procedure, to help eliminate or reduce pain in the leg. Advised patient that he could also wait if he wanted, the hardware appears to be intact and fully functional. Discussed with the patient about going back to [facility] for the revision surgery. Patient agrees and would like to proceed with a referral to [facility] trauma. Future Tests Future scheduled test information is unavailable Pending Tests Test Name Ordered Date Scheduled Date Miscellaneous Pathology Test June 20, 2025 1 :07pm Future Visits Future appointment information is unavailable Future Procedures Procedure Name Ordered Date Scheduled Date Pathology Request for Lab Malissa June 22 7:55am June 20, 2025 12:07pm Future Medications Future medication information is unavailable Patient Instructions Patient instructions are unavailable
[2025-09-12] VITALS (16 sets, daily range): BP systolic 90–122; BP diastolic 55–84; PULSE 71; TEMP 36.4; O2SAT 92–96; BMI 34.0
[2025-09-12 14:07] LABS: SARS-CoV-2 Ag NEGATIVE (NEGATIVE)
--- OUTSIDE RECORDS SUMMARY | 2025-09-12 14:13 | XMS_ITS | Encounter Summary ---
Author Organization [facility] Address [address] [place] [address] Care Team Providers Care Wellness Director Name Role Phone Caden Mendez MD Primary Care Provider [phone] Encounter Details DateTypeDepartmentCare Team (Latest Contact Info)Lvbdsbrkbot32/10/2025Telephone [facility] [address] [facility] [address] [place] [address] Juliana Lambert MA Social History Tobacco UseTypesPacks/DayYears UsedDateSmoking Tobacco: NeverSmokeless Tobacco: NeverAlcohol UseStandard Drinks/WeekCommentsNot Currently0 (1 standard drink = 0.6 oz pure alcohol)Sex and Gender InformationValueDate RecordedSex Assigned at BirthNot on fileLegal JndUnxi0111/25/2022 7:12 PM EDTGender IdentityNot on file Sexual OrientationNot on filedocumented as of this encounter Miscellaneous Notes * Telephone Encounter - Juliana Lambert MA - 08/22/2025 8:51 PM EST Jaxon Gage called from [facility] stating he is over due for a [facility] [phone] Looks like this is for the xywav documented in this encounter Plan of Treatment Not on file documented as of this encounter Visit Diagnoses Not on filedocumented in this encounter Care Teams Team MemberRelationshipSpecialtyStart DateEnd Date Caden Mendez MD [address] [facility] [place] [address] PCP - GeneralFamily Evqhvrli98/31/25documented as of this encounter
--- OUTSIDE RECORDS SUMMARY | 2025-09-12 14:13 | XMS_ITS | Clinical Summary ---
Author Organization [facility] Address [address] [place] [address] Care Team Providers Care Supervisor Area Name Role Phone Unavailable Primary Care Provider Unavailabl e Source Comments The following information is NOT included in Care Everywhere downloads:Psychiatric notes, ECG results, Cardiac Rehab notes, Pulmonary Function notes, data from [employer] (includes but not limited toPregnancy data,audiograms, eye exams, pre-surgical evaluation notes, well-child exam data).[facility] Medications MedicationSigDispense QuantityRefillsLast FilledStart DateEnd [...] InformationValueDate RecordedSex Assigned at BirthNot on fileLegal MbmCgol65/12/2012 1:17 PM ESTGender IdentityNot on file Sexual OrientationNot on file Plan of Treatment Health MaintenanceDue DateLast QaeoGbrljhwlCzaebljwvkn92/21/1970HIV Test 1984Hepatitis C Tocnqqup78/21/1988Tdap Hqrrfhc7510/03/1987Hepatitis A (HAV) Vaccine (optional start 19+ years)1988Hepatitis B (HBV) Vaccine (1 of 3 - 19+ 3-dose series)1988Tetanus (Td or Tdap) Hggmpyp9110/03/1988Cholesterol 2004CRC Xpcmmlyuw26/21/2015Cologuard (Stool DNA)2014FIT2014 Pneumococcal Vaccine(s) (50+ yrs) (1 of 1 - PCV)2019Shingles (RZV) Vaccine (1 of 2)2019COVID-19 Vaccine (1 - 2024- season)2025Influenza Vaccine (#1)2025 Insurance
--- OUTSIDE RECORDS SUMMARY | 2025-09-12 14:13 | XMS_ITS | Patient Health Record ---
[facility] [address] [place] [address] Care Team Providers Care Certified Ophthalmic Medical Technician Name Role Phone Geniaomi Fela Primary Care Provider Stephie Calzada Unavailable Reason For Referral No Information Encounters Encounter Location Date Provider Diagnosis [address] [address] 01/16/2025 Stephie Messina Cracked tooth K03.81 ; Dental caries on pit and fissure surface penetrating into dentin K02.52 ; Necrosis of pulp K04.1 ; Encounter for dental examination and cleaning with abnormal findings Z01.21 ; Other dental procedure status Z98.818 and Partial loss of teeth, unspecified cause, class I K08.401 [facility] [address] [place] [address] 02/15/2025 Stephie Messina Assessments Encounter Date Diagnosis [...] Coverage Start Date Coverage End Date Dental [place] [employer] [address] [address] [place] [address] [id number] MATTY WADE Self - patient is the insured [facility] [address] [place] [id number] WADEelf - patient is the [id number] 2024
--- OUTSIDE RECORDS SUMMARY | 2025-09-12 14:13 | XMS_ITS | Clinical Summary ---
Author Organization [facility] Address [address], [address] [place] [address] Care Team Providers Care Mica Patcher Name Role Phone Unavailable Primary Care Provider Unavailabl e Social History Tobacco UseTypesPacks/DayYears UsedDateSmoking Tobacco: Never AssessedSex and Gender InformationValueDate RecordedSex Assigned at BirthNot on fileLegal Sex Male09/12/2025 9:02 AM ESTGender IdentityNot on fileSexual OrientationNot on file Plan of Treatment DateTypeDepartmentCare Team (Latest Contact Info)Inqshuqzfvn49/05/2026 10:30 AM ESTOffice Visit [facility] [address] [place] [address] [address] [place] [id number] Christiano Geiger MD [address] [place] [address] 3 mos fup
--- OUTSIDE RECORDS SUMMARY | 2025-09-12 14:13 | XMS_ITS | Patient Health Record ---
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 Role Phone Kareem Mendez Primary Care Provider [phone] Allergies Allergen (clinical drug ingredient) Drug/Non Drug Allergy documented on EMR Reaction Allergy Type Onset Date Status hydrocodone Hydrocodone hives Drug Allergy ActivefentanylFentanylhivesDrug AllergyActive Results Component Value Reference Range Notes CBC AUTO DIFF Reviewed date:04/24/2025 08:22:26 PM Interpretation: Performing Lab: Notes/Report: [facility] , White Blood Count 7.6 4.0-11.0 10 3/uL Red Blood Count4.834.70-6.10 10 6/vRKhqdlisciw13.514.0-18.0 g/dXOsdhdtyrmh09.3 42.0-54.0 %Mean Corpuscular Vqrkhh78.680.0-94.0 fLMean Corpuscular Hemoglobin 30.025.9-34.0 pgMean Corpuscular HGB Conc33.529.9-35.2 g/dLRed Cell Distribution Width15.311.0-15.0 %Platelet Ghvmc327086-746 10 3/uLMean Platelet Volume9.99.5- 13.5 fLNeutrophils Percent Auto74.543.0-75.0 %Lymphocytes Percent Auto13.120.5- 60.0 %Monocytes Percent Auto8.91.7-12.0 %Eosinophils Percent Auto1.30.9-7.0 % Basophils Percent Auto1.10.2-2.0 %Immature Granulocytes Pct Auto1.10.0-0.5 % Neutrophils Absolute Auto5.61.4-6.5 10 3/uLLymphocytes Absolute Auto1.01.2-3.8 10 3/uLMonocytes Absolute Auto0.70.3-0.8 10 3/uLEosinophils Absolute Auto0.10.0- 0.7 10 3/uLBasophils Absolute Auto0.10.0-0.1 10 3/uLImmature Granulocytes Abs Auto0.080.00-0.03 10 3/uLPerforming Lab:see noteML - [facility] LB PROF 14(COMP METB) Reviewed date:04/24/2025 08:22:26 PM Interpretation: Performing Lab: Notes/Report: [facility] ,Cfhocn851120-711 mmol/LPotassium3.83.5-5.1 mmol/PVqfponsq14500-889 mmol/LCarbon Lukwwqy05.321.0-32.0 mmol/LAnion Gap7.5Zabhbef76077-082 mg/dLBlood Urea Nitrogen 11.07.0-18.0 mg/dLCreatinine0.950.70-1.30 mg/dLEstimated GFR ( Elizabeth>60 >=60 mL/min/1.73m 2Estimated GFR (Non- Gwen>60>=60 mL/min/1.73m 2BUN Creatinine Ratio11.1Vbogdsa5.28.5-10.1 mg/dLBilirubin Total0.40.2-1.0 mg/dL Aspartate Amino Hqlcjgfbndz5234-39 U/LAlanine Lcdpjkzzrlxoigdp1024-23 U/L Alkaline Wyvveessdti93377-141 U/LTotal Protein7.96.4-8.2 g/dLAlbumin Level3.5 3.4-5.0 g/dLGlobulin4.4Albumin Globulin Ratio0.8Performing Lab:see noteML - [facility] LBCRP Reviewed date:09/20/2024 07:18:09 PM Interpretation: Performing Lab: Notes/Report: [facility] ,C Reactive Protein2.51<=0.50 mg/dLPerforming Lab:see note - [facility] LBLACTATE or LACTIC ACID Reviewed date:09/20/2024 07:18:09 PM Interpretation: Performing Lab: Notes/Report: [facility] ,Lactate/Lactic Acid1.40.4-2.0 mmol/LPerforming Lab:see noteML - [facility] LBPROF 14(COMP METB) Reviewed date:09/20/2024 07:18:09 PM Interpretation: Performing Lab: Notes/Report: [facility] ,Wsprpr725373-672 mmol/LPotassium3.73.5-5.1 mmol/TVhwsnosz82142-322 mmol/LCarbon Belljib81.621.0-32.0 mmol/LAnion Gap10.2Fxrkong19106-850 mg/dLBlood Urea Juuxhyyk99.07.0-18.0 mg/dLCreatinine1.040.70-1.30 mg/dLEstimated GFR ( Elizabeth>60>=60 mL/min/1.73m 2Estimated GFR (Non- Gwen>60>=60 mL/min/1.73m 2BUN Creatinine Ratio11.1Qoktien5.28.5-10.1 mg/dLBilirubin Total0.50.2-1.0 mg/dL Aspartate Amino Tbpmrolcter2302-04 U/LAlanine Ntctjiihlolbbqzx5889-12 U/L Alkaline Xpfdndsedhu63636-641 U/LTotal Protein7.46.4-8.2 g/dLAlbumin Level3.3 3.4-5.0 g/dLGlobulin4.1Albumin Globulin Ratio0.8Performing Lab:see noteML - [facility] LBBlood Culture 1 Reviewed date:09/25/2024 08:20:56 PM Interpretation: Performing Lab: Notes/Report: [facility] ,Blood Culture 1See Below For Report Blood Culture 1 NG5D NO GROWTH AT 5 DAYS. Performing Lab:see noteML - [facility] LBBlood Culture 2 Reviewed date:09/25/2024 08:20:56 PM Interpretation: Performing Lab: Notes/Report: [facility] ,Blood Culture 2See Below For Report Blood Culture 2 NG5D NO GROWTH AT 5 DAYS. Performing Lab:see noteML - [facility] LBManual Differential Reviewed date:09/19/2024 07:12:29 PM Interpretation: Performing Lab: Notes/Report: [facility] ,Segmented Neutrophils % Kfdaln64.043.0-75.0Lymphocytes Percent Manual6.020.5- 60.0 %Monocytes Percent Manual4.01.7-12.0 %Eosinophils Percent Manual3.00.9-7.0 %Basophils Percent Manual1.00.2-2.0 %Atypical Lymphocytes % Manual9.0Segmented Neut Absolute Manual5.851.4-6.5 10 3/uLLymphocytes Absolute Manual0.451.20-3.80 10 3/uLMonocytes Absolute Manual0.300.30-0.80 10 3/uLEosinophils Absolute Manual 0.220.00-0.70 10 3/uLBasophils Abs Manual0.070.00-0.10 10 3/uLAtypical Lymphocytes Abs Man0.68Performing Lab:see noteML - [facility] LB Venous Blood Gas Reviewed date:09/19/2024 07:12:29 PM Interpretation: Performing Lab: Notes/Report: [facility] ,pH VBG7.4767.330-7.668BEC6 VBG39.340.0-52.0 mmHgPerforming Lab:see note - [facility] LBUS venous doppler LE BI Reviewed date:09/20/2024 07:18:09 PM Interpretation: Performing Lab: Notes/Report: Source Facility: [facility]-[address] [place] [address] [place] [address] Ultrasound Report Signed Patient: MATTY GARCES MR#: [id number] : 1970 Acct:[id number] Age/Sex: 53 / M ADM Date: 09/19/24 Loc: ER Attending Dr: Ordering Physician: Veronique Garrett Date of Service: 09/19/24 Procedure(s): US venous doppler LE LT Accession Number(s): [id number] cc: Venus Mendez M.D.; Veronique Garrett [place] [id number] Patient Name: MATTY GARCES MRN: [id number]:[id number] date: 1970 Sex: M Assigned Patient Location: ER Current Patient Location: ER Accession/Order Number: [id number] Exam Date: 09/19/2024 19:20 Report Date: 09/19/2024 [...] M.D. Signed By: 09/19/242049 DD/ 46 TD/TT: Tile Ditcher:CT soft tissue neck w con Reviewed date:09/20/2024 07:18:09 PM Interpretation: Performing Lab: Notes/Report: Source Facility: [place] [address] CT Scan Report Signed Patient: MATTY GARCES MR#: [id number] : 1970 Acct:[id number] Age/Sex: 53 / M ADM Date: 09/19/24 Loc: ICU 270-[address]: Venus Mendez M.D. Ordering Physician: Venus Mendez M.D. Date of Service: 09/20/24 Procedure(s): CT soft tissue neck w con Accession Number(s): [id number] cc: Venus Mendez M.D. [place] [address] Patient Name: MATTY GARCES MRN: [facility]:[id number] date: 1970 Sex: M Assigned Patient Location: ICU Current Patient Location: ICU Accession/Order Number: [id number] Exam Date: 09/20/2024 13:15 Report Date: 09/20/2024 [...] clear. Masseters are clear. Skull base intact. Secondary Art Teacher spaces are normal. The parotid glands [...] Signed By: 09/20/24 1458 DD/ 1456 TD/TT: Tile Ditcher:JACKY castañeda LT min 3V Reviewed date:09/21/2024 09:07:03 PM Interpretation: Performing Lab: Notes/Report: Source Facility: [facility]-[address] [place] [address] [place] [address] XRay Report Signed Patient: MATTY GARCES MR#: [id number] : 1970 Acct:[id number] Age/Sex: 53 / M ADM Date: 09/19/24 Loc: ICU 270-[address]: Venus Mendez M.D. Ordering Physician: Clarisa Vallejo D.P.M. Date of Service: 09/20/24 Procedure(s): XR foot LT min 3V Accession Number(s): [id number] cc: Clraisa Vallejo D.P.M.; Venus Mendez M.D. [place] [address] Patient Name: MATTY GARCES MRN: [id number]:[id number] date: 1970 Sex: M Assigned Patient Location: ICU Current Patient Location: ICU Accession/Order Number: [id number] Exam Date: 09/20/2024 20:45 Report Date: 09/20/2024 [...] M.D. Signed By: 09/20/242144 DD/ 42 TD/TT: Tile Ditcher:XR ankle LT min 3V Reviewed date:09/21/2024 09:07:03 PM Interpretation: Performing Lab: Notes/Report: Source Facility: [place] [address] XRay Report Signed Patient: MATTY GARCES MR#: [id number] : 1970 Acct:[id number] Age/Sex: 53 / M ADM Date: 09/19/24 Loc: ICU 270-[address]: Venus Mendez M.D. Ordering Physician: Clarisa Vallejo D.P.M. Date of Service: 09/20/24 Procedure(s): XR ankle LT min 3V Accession Number(s): [id number] cc: Clarisa Vallejo D.P.M.; Venus Mendez M.D. [place] [address] Patient Name: MATTY GARCES MRN: [facility]:[id number] date: 1970 Sex: M Assigned Patient Location: ICU Current Patient Location: ICU Accession/Order Number: [id number] Exam Date: 09/20/2024 20:45 Report Date: 09/20/2024 [...] M.D. Signed By: 09/20/242144 DD/ 42 TD/TT: Tile Ditcher:BLOOD GASES BTY Reviewed date:09/21/2024 08:35:02 AM Interpretation: Performing Lab: Notes/Report: [facility] ,pH ABG7.4197.350-7.450ABG GUZ788.635.0-45.0 mmHgRESULTS CALLED TO GLENDY JAMES RN at [id number] ABG71.380.0-100.0 mmHgHCO3 OCF5139.0-26.0 mmol/LBase Excess ABG11.5-2.0-2.0 mmol/LOxygen Saturation ABG95.4Allen TestPOSITIVEPOSITIVE O2 ModeNASAL CANNULALiters per Mswlvd5Qxcrfocl SiteRRPerforming Lab:see noteML - [facility] LBCBC AUTO DIFF Reviewed date:09/21/2024 01:02:57 PM Interpretation: Performing Lab: Notes/Report: [facility] ,White Blood Count7.54.0-11.0 10 3/uLRed Blood Count5.234.70-6.10 10 6/uL Yuaqgdqoih22.214.0-18.0 g/oHIhrksiqinq62.042.0-54.0 %Mean Corpuscular Fxkzxe90.0 80.0-94.0 fLMean Corpuscular Qhxqfdjqop94.225.9-34.0 pgMean Corpuscular HGB Conc 30.929.9-35.2 g/dLRed Cell Distribution Width15.311.0-15.0 %Platelet Skcua404 150-450 10 3/uLMean Platelet Gryvmg31.09.5-13.5 fLNeutrophils Percent Auto76.9 43.0-75.0 %Lymphocytes Percent Auto9.620.5-60.0 %Monocytes Percent Auto10.31.7- 12.0 %Eosinophils Percent Auto1.50.9-7.0 %Basophils Percent Auto0.50.2-2.0 % Immature Granulocytes Pct Auto1.20.0-0.5 %Neutrophils Absolute Auto5.81.4-6.5 10 3/uLLymphocytes Absolute Auto0.71.2-3.8 10 3/uLMonocytes Absolute Auto0.80.3-0.8 10 3/uLEosinophils Absolute Auto0.10.0-0.7 10 3/uLBasophils Absolute Auto0.00.0- 0.1 10 3/uLImmature Granulocytes Abs Auto0.090.00-0.03 10 3/uLPerforming Lab:see noteML - [facility] LBCRP Reviewed date:09/21/2024 01:02:57 PM Interpretation: Performing Lab: Notes/Report: [facility] ,C Reactive Protein1.65<=0.50 mg/dLPerforming Lab:see noteML - [facility] LBPROF CHEM 8 (BAS METB) Reviewed date:09/21/2024 01:02:57 PM Interpretation: Performing Lab: Notes/Report: [facility] ,Unuztb307573-480 mmol/LPotassium3.63.5-5.1 mmol/YQzbnwvnc71946-007 mmol/LCarbon Flwcvra55.821.0-32.0 mmol/LAnion Gap5.3Dufkmuv53309-151 mg/dLBlood Urea Nitrogen 6.07.0-18.0 mg/dLCreatinine1.210.70-1.30 mg/dLEstimated GFR ( Elizabeth>60 >=60 mL/min/1.73m 2Estimated GFR (Non- Gwen>60>=60 mL/min/1.73m 2BUN Creatinine Ratio5.8Knbtynd4.88.5-10.1 mg/dLPerforming Lab:see noteML - [facility] LBCRP Reviewed date:09/24/2024 10:37:52 AM Interpretation: Performing Lab: Notes/Report: [facility] ,C Reactive Protein0.89<=0.50 mg/dLPerforming Lab:see noteML - [facility] LBPROF CHEM 8 (BAS METB) Reviewed date:09/24/2024 10:37:52 AM Interpretation: Performing Lab: Notes/Report: [facility] ,Zjejgy046454-432 mmol/LPotassium3.73.5-5.1 mmol/VLfvjpjyx33631-004 mmol/LCarbon Gjmzjvk42.121.0-32.0 mmol/LAnion Gap9.7Lrungmk47355-984 mg/dLBlood Urea Nitrogen 7.07.0-18.0 mg/dLCreatinine1.010.70-1.30 mg/dLEstimated GFR ( Elizabeth>60 >=60 mL/min/1.73m 2Estimated GFR (Non- Gwen>60>=60 mL/min/1.73m 2BUN Creatinine Ratio6.1Ipoupzl5.98.5-10.1 mg/dLPerforming Lab:see noteML - [facility] LBUS venous doppler LE BI Reviewed date:10/08/2024 12:37:32 PM Interpretation: Performing Lab: Notes/Report: Source Facility: [facility]-[address] [place] [address] [address] Ultrasound Report Signed Patient: MATTY GARCES MR#: [id number] : 1970 Acct:[id number] Age/Sex: 54 / M ADM Date: 10/05/24 Loc: ER Attending Dr: Ordering Physician: Melissa Duggan Date of Service: 10/05/24 Procedure(s): US venous doppler LE RT Accession Number(s): [id number] cc: Venus Mendez M.D.; Melissa Duggan [place] [address] Patient Name: MATTY GARCES MRN: [facility]:[id number] date: 1970 Sex: M Assigned Patient Location: ER Current Patient Location: ED.MAIN Accession/Order Number: [id number] Exam Date: 10/05/2024 19:00 Report Date: 10/05/2024 [...] M.A. Signed By: 10/05/242017 DD/ 15 TD/TT: Tile Ditcher:BLOOD CULTURE ID PANEL Reviewed date:03/07/2025 09:35:46 PM Interpretation: Performing Lab: Notes/Report: [facility] ,CTX-MNOT APPLICABLENOT DETECTEIMPNOT APPLICABLENOT DETECTEKPCNOT APPLICABLENOT DETECTEmcr-1NOT APPLICABLENOT DETECTEmecA/CNOT APPLICABLENOT DETECTEmecA/C and MREJ (MRSA)NOT APPLICABLENOT DETECTENDMNOT APPLICABLENOT UWCXGIXZKY-03-poauALU APPLICABLENOT DETECTEvanA/BNOT APPLICABLENOT DETECTEVIMNOT APPLICABLENOT DETECTE SourceBloodEnterococcus [...] DETECTEDNOT DETECTECryptococcus neoformans/gattiiNOT DETECTEDNOT DETECTE Performing Lab:see note - [facility] LBBNP Reviewed date:03/05/2025 09:30:34 PM Interpretation: Performing Lab: Notes/Report: [facility] ,NT Pro B Type Natriuretic Ymmm007.0<=900.0 pg/mLPerforming Lab:see note - [facility] Reviewed date:03/05/2025 09:30:34 PM Interpretation: Performing Lab: Notes/Report: [facility] ,White Blood Count6.74.0-11.0 10 3/uLRed Blood Count4.814.70-6.10 10 6/uL Kddeyztzzs39.014.0-18.0 g/sTOdwxpbppnx39.942.0-54.0 %Mean Corpuscular Alzdil52.1 80.0-94.0 fLMean Corpuscular Vkxrprkwdy03.125.9-34.0 pgMean Corpuscular HGB Conc 33.429.9-35.2 g/dLRed Cell Distribution Width14.511.0-15.0 %Platelet Vykhx621 150-450 10 3/uLMean Platelet Volume9.69.5-13.5 fLNeutrophils Percent Auto73.6 43.0-75.0 %Lymphocytes Percent Auto13.420.5-60.0 %Monocytes Percent Auto10.51.7- 12.0 %Eosinophils Percent Auto1.10.9-7.0 %Basophils Percent Auto0.60.2-2.0 % Immature Granulocytes Pct Auto0.80.0-0.5 %Neutrophils Absolute Auto4.91.4-6.5 10 3/uLLymphocytes Absolute Auto0.91.2-3.8 10 3/uLMonocytes Absolute Auto0.70.3-0.8 10 3/uLEosinophils Absolute Auto0.10.0-0.7 10 3/uLBasophils Absolute Auto0.00.0- 0.1 10 3/uLImmature Granulocytes Abs Auto0.050.00-0.03 10 3/uLPerforming Lab:see noteML - [facility] LBLACTATE or LACTIC ACID Reviewed date:03/05/2025 09:30:34 PM Interpretation: Performing Lab: Notes/Report: [facility] ,Lactate/Lactic Acid1.20.4-2.0 mmol/LPerforming Lab:see noteML - [facility] LBPROF 14(COMP METB) Reviewed date:03/05/2025 09:30:34 PM Interpretation: Performing Lab: Notes/Report: [facility] ,Vprikm566712-789 mmol/LPotassium4.13.5-5.1 mmol/KLmxtymxs13899-629 mmol/LCarbon Jxeynkz33.421.0-32.0 mmol/LAnion Gap10.2Wtcxcst86080-889 mg/dLBlood Urea Zqaxtaek00.07.0-18.0 mg/dLCreatinine0.880.70-1.30 mg/dLEstimated GFR ( Elizabeth>60>=60 mL/min/1.73m 2Estimated GFR (Non- Gwen>60>=60 mL/min/1.73m 2BUN Creatinine Ratio14.2Iasgqet26.08.5-10.1 mg/dLBilirubin Total0.60.2-1.0 mg/dLAspartate Amino Pflalhuihbf6573-92 U/LAlanine Pmnmngoypxkvsabb8075-01 U/L Alkaline Svauuqnogly49576-504 U/LTotal Protein8.16.4-8.2 g/dLAlbumin Level3.5 3.4-5.0 g/dLGlobulin4.6Albumin Globulin Ratio0.8Performing Lab:see note - [facility] LBPTT Reviewed date:03/05/2025 09:30:34 PM Interpretation: Performing Lab: Notes/Report: [facility] ,Partial Thromboplastin Time35.322.3-36.2 secPerforming Lab:see note - [facility] LBBlood Culture 1 Reviewed date:03/11/2025 03:17:10 PM Interpretation: Performing Lab: Notes/Report: [facility] ,Blood Culture 1See Below For Report NG5D NO GROWTH AT 5 DAYS.^NO GROWTH AT 5 DAYS. Blood Culture 1 Performing Lab:see note - [facility] LBProthrombin Time INR Reviewed date:03/05/2025 09:30:34 PM Interpretation: Performing Lab: Notes/Report: [facility] ,Prothrombin Time12.79.0-11.6 secINR1.22 DESIRED INR: 2.0-3.0 CONDITIONS NOT LISTED BELOW 2.5-3.5 FOR PROSTHETIC HEART VALVE REPLACEMENT 2.5-3.5 RECURRENT THROMBOSIS Performing Lab:see note - [facility] LBTroponin I High Sensitivity Reviewed date:03/05/2025 09:30:34 PM Interpretation: Performing Lab: Notes/Report: [facility] ,Troponin I High Sensitivity7.34.0-76.1 pg/mL CUT-OFF POINTS HAVE BEEN ESTABLISHED BASED ON THE FOURTH UNIVERSAL DEFINITION OF MYOCARDIAL INFARCTION. THE UPPER REFERENCE LIMIT (URL) OF TROPONIN, DEFINED THE 99TH PERCENTILE OF cTnI DISTRIBUTION IN A REFERENCE POPULATION, HAS BEEN CONFIRMED THE DECISION THRESHOLD FOR AL DIAGNOSIS. 99TH PERCENTILE = 76.2 PG/ML NOTE: HIGH-SENSITIVITY TROPONIN ASSAY IS NOT INTENDED TO BE USED IN ISOLATION BUT SHOULD BE INTERPRETED IN CONJUNCTION WITH OTHER DIAGNOSTIC AND CLINICAL INFORMATION. Performing Lab:see noteML - [facility] LBXR ankle RT min 3V Reviewed date:03/05/2025 08:19:57 PM Interpretation: Performing Lab: Notes/Report: Source Facility: [place] [address] XRay Report Signed Patient: MATTY GARCES MR#: [id number] : 1970 Acct:[id number] Age/Sex: 54 / M ADM Date: 03/05/25 Loc: ER Attending Dr: Ordering Physician: Jess Ryan Date of Service: 03/05/25 Procedure(s): XR ankle RT min 3V Accession Number(s): [id number] cc: Jess Ryan; Venus Mendez M.D. [place] [address] Patient Name: MATTY GARCES MRN: [id number] date: 1970 Sex: M Assigned Patient Location: ER Current Patient Location: ER Accession/Order Number: [id number] Exam Date: 03/05/2025 18:27 Report Date: 03/05/2025 [...] [place] M.D. 03/05/2025 6:33 PM Dictation Location: [place] [address] Electronically authenticated by: [id number] Y Date: 03/05/2025 18:33 Dictated By: Francis Irving M.D. Signed By: 03/05/251835 DD/ 32 TD/TT: Tile Ditcher:ECG 12 lead Reviewed date:03/07/2025 09:35:46 PM Interpretation: Performing Lab: Notes/Report: Source Facility: [place] [address] Electrocardiograph Report Signed Patient: MATTY GARCES MR#: [id number] : 1970 Acct:[id number] Age/Sex: 54 / M ADM Date: 03/05/25 Loc: MS 221-[address]: Venus Mendez M.D. Ordering Physician: Jess Ryan Date of Service: 03/05/25 Procedure(s): ECG 12 lead Accession Number(s): [id number] cc: [facility] Test Date: 2025-03-05 Pat Name: MATTY GARCES Department: Room: - Gender: Male Onion Tier: : 1970 Requested By: 0923 Order Number: [id number] Reading MD: RAMIRO WLALS M.D. Measurements Intervals [place] Rate: 76 P: 60 [place]: 178 QRS: 69 QRSD: 100 T: 46 QT: 406 QTc: 437 Interpretive Statements 1100 Sinus rhythm 0102 ARTIFACT PRESENT 9110 normal ECG Compared to ECG 09/23/2024 05:51:07 No significant changes Electronically Signed On 03-06-2025 9:29:34 EDT by RAMIRO WALLS M.D. Dictated By: RAMIRO WALLS Signed By: 03/06/25928 DD/ 06 TD/TT: Tile Ditcher:XR foot LT min 3V Reviewed date:03/07/2025 09:35:46 PM Interpretation: Performing Lab: Notes/Report: Source Facility: [facility]-[address] [place] [address] [place] [address] XRay Report Signed Patient: MATTY GARCES MR#: [id number] : 1970 Acct:[id number] Age/Sex: 54 / M ADM Date: 03/05/25 Loc: [place] 221-[address]: Venus Mendez M.D. Ordering Physician: Clarisa Vallejo D.P.M. Date of Service: 03/06/25 Procedure(s): XR foot LT min 3V Accession Number(s): [id number] cc: Clarisa Vallejo D.P.M.; Venus Mendez M.D. [place] [address] Patient Name: MATTY GARCES MRN: [id number] date: 1970 Sex: M Assigned Patient Location: [place] Current Patient Location: [place] Accession/Order Number: [id number] Exam Date: 03/06/2025 13:16 Report Date: 03/06/2025 [...] [place] M.D. 03/06/2025 1:19 PM Dictation Location: [place] [address] Electronically authenticated by: [id number] Y Date: 03/06/2025 13:19 Dictated By: Francis [place] M.D. Signed By: 03/06/25 1321 DD/ 1319 TD/TT: Tile Ditcher:CT ANKLE RT WO CON Reviewed date:04/11/2025 11:11:49 PM Interpretation: Performing Lab: Notes/Report: Source Facility: [place] [address] CT Scan Report Signed Patient: MATTY GARCES MR#: [id number] : 1970 Acct:[id number] Age/Sex: 54 / M ADM Date: 04/10/25 Loc: CT Attending Dr: Venus Mendez M.D. Ordering Physician: Venus Mendez M.D. Date of Service: 04/10/25 Procedure(s): CT ankle RT wo con Accession Number(s): [id number] cc: Venus Mendez M.D. [place] [address] Patient Name: MATTY GARCES MRN: [id number] date: 1970 Sex: M Assigned Patient Location: CT Current Patient Location: CT Accession/Order Number: [id number] Exam Date: 04/10/2025 15:45 Report Date: 04/10/2025 [...] MALLEOLUS. Impression dictated by: Bora Gomez Jr., DKevin 04/10/2025 3:56 PM Dictation Location: [facility] Electronically authenticated by: [id number] Y Date: 04/10/2025 15:56 Dictated By: Bora Gomez M.D. Signed By: 04/10/25 1559 DD/ 1556 TD/TT: Tile Ditcher:Testosterone Reviewed date:04/25/2025 12:59:24 PM Interpretation: Performing Lab: Notes/Report: [facility] ,Testosterone>8240570-359 ng/dL Adult male reference interval is based on a population of healthy nonobese males (BMI <30) between 19 and 39 years old. Dima et.al. JCEM 2017,102;8058-5474. PMID: 19108415. Performed at: [facility] [address] [id number] Bleach Boiler Filler: Arthur Snyder PhD, Phone: [phone] Performing Lab:see oli - [facility] LBXR tibia fibula RT 2V Reviewed date:05/07/2025 06:51:13 PM Interpretation: Performing Lab: Notes/Report: Source Facility: [place] [address] [address] XRay Report Signed Patient: MATTY GARCES MR#: [id number] : 1970 Acct:[id number] Age/Sex: 54 / M ADM Date: 05/07/25 Loc: RAD Attending Dr: Og Allen D.O. Ordering Physician: Og Allen Date of Service: 05/07/25 Procedure(s): XR tibia fibula RT 2V Accession Number(s): [id number] cc: Venus Mendez M.D.; Og Allen [place] [id number] Patient Name: MATTY GARCES MRN: [id number] date: 1970 Sex: M Assigned Patient Location: [facility] Current Patient Location: [facility] Accession/Order Number: [id number] Exam Date: 05/07/2025 11:50 Report Date: 05/07/2025 [...] Contreras M.D. 05/07/2025 12:43 PM Dictation Location: [place] [address] Electronically authenticated by: [id number] Y Date: 05/07/2025 12:43 Dictated By: Kaylin Contreras D.O. Signed By: 05/07/25 1246 DD/ 1243 TD/TT: Tile Ditcher:CBC AUTO DIFF Reviewed date:06/16/2025 01:01:31 PM Interpretation: Performing Lab: Notes/Report: [facility] ,White Blood Count8.64.0-11.0 10 3/uLRed Blood Count4.764.70-6.10 10 6/uL Devnjxmukv78.414.0-18.0 g/iCCnfggvtuqb91.542.0-54.0 %Mean Corpuscular Gtnmbe68.3 80.0-94.0 fLMean Corpuscular Iuvkauwkyo68.225.9-34.0 pgMean Corpuscular HGB Conc 31.529.9-35.2 g/dLRed Cell Distribution Width13.811.0-15.0 %Platelet Boebt333 150-450 10 3/uLMean Platelet Vcevkw20.09.5-13.5 fLNeutrophils Percent Auto79.1 43.0-75.0 %Lymphocytes Percent Auto10.120.5-60.0 %Monocytes Percent Auto8.31.7- 12.0 %Eosinophils Percent Auto1.40.9-7.0 %Basophils Percent Auto0.60.2-2.0 % Immature Granulocytes Pct Auto0.50.0-0.5 %Neutrophils Absolute Auto6.81.4-6.5 10 3/uLLymphocytes Absolute Auto0.91.2-3.8 10 3/uLMonocytes Absolute Auto0.70.3-0.8 10 3/uLEosinophils Absolute Auto0.10.0-0.7 10 3/uLBasophils Absolute Auto0.10.0- 0.1 10 3/uLImmature Granulocytes Abs Auto0.040.00-0.03 10 3/uLPerforming Lab:see noteML - [facility] LBCRP Reviewed date:06/16/2025 01:01:31 PM Interpretation: Performing Lab: Notes/Report: [facility] ,C Reactive Protein2.79<=0.50 mg/dLPerforming Lab:see noteML - [facility] LBLACTATE or LACTIC ACID Reviewed date:06/16/2025 01:01:31 PM Interpretation: Performing Lab: Notes/Report: [facility] ,Lactate/Lactic Acid1.80.4-2.0 mmol/LPerforming Lab:see noteML - [facility] LBPROF CHEM 8 (BAS METB) Reviewed date:06/16/2025 01:01:31 PM Interpretation: Performing Lab: Notes/Report: [facility] ,[id number] mmol/LPotassium3.43.5-5.1 mmol/MTwncnrfk16137-357 mmol/LCarbon Zyvtzdm82.821.0-32.0 mmol/LAnion Gap10.4Grieabt39389-531 mg/dLBlood Urea Jiwwtypq65.07.0-18.0 mg/dLCreatinine1.040.70-1.30 mg/dLEstimated GFR ( Elizabeth>60>=60 mL/min/1.73m 2Estimated GFR (Non- Gwen>60>=60 mL/min/1.73m 2BUN Creatinine Ratio11.7Nfakeqh9.38.5-10.1 mg/dLPerforming Lab:see note - [facility] LBBlood Culture 1 Reviewed date:06/21/2025 06:12:36 PM Interpretation: Performing Lab: Notes/Report: [facility] ,Blood Culture 1See Below For Report Blood Culture 1 NG5D NO GROWTH AT 5 DAYS.^NO GROWTH AT 5 DAYS. Performing Lab:see note - [facility] LBBlood Culture 2 Reviewed date:06/21/2025 06:12:36 PM Interpretation: Performing Lab: Notes/Report: [facility] ,Blood Culture 2See Below For Report Blood Culture 2 NG5D NO GROWTH AT 5 DAYS.^NO GROWTH AT 5 DAYS. Performing Lab[facility] LBErythrocyte Sedimentation Rate Reviewed date:06/16/2025 01:01:31 PM Interpretation: Performing Lab: Notes/Report: [facility] ,Erythrocyte Sedimentation Rate46<=20 mm/hrPerforming Lab:see note - [facility] LBAerobic Culture Reviewed date:06/19/2025 06:54:26 PM [...] Isolated O:STAAUR Isolated Organism: 1.1 Antibiotic Interpretation ADMA Status Aerobic Cultureresistant to all currently available [...] Antibiotic Interpretation ADAM Status Aerobic CulturePerformed at: [facility] Aerobic Culture Organism: Staphylococcus aureus : O:MRSA Isolated O:STAAUR Isolated Organism: 1.1 Antibiotic Interpretation ADAM Status Aerobic [address] [place], [place] [id number] Aerobic Culture Organism: Staphylococcus aureus : O:MRSA Isolated O:STAAUR Isolated Organism: 1.1 Antibiotic Interpretation ADAM Status Aerobic CultureLab Director: Arthur Snyder PhD, Phone: [phone] Aerobic Culture Organism: Staphylococcus aureus : O:MRSA [...] LC - [facility] LB SEE REPORT - Bread Dumper Id information not found for OBX-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 Anaerobic Culture Reviewed date:06/22/2025 12:38:34 PM Interpretation: Performing Lab: Notes/Report: [facility] ,Anaerobic CultureSee Below For ReportAnaerobic CultureAnaerobic CultureSpecimen has been received and testing has been initiated.Anaerobic CultureAnaerobic CultureAnaerobic CultureAnaerobic CultureNo anaerobic growth in 72 hours. Anaerobic CulturePerforming Lab:see noteLC - [facility] LBXR foot LT min 3V Reviewed date:06/16/2025 01:01:31 PM Interpretation: Performing Lab: Notes/Report: Source Facility: [place] [address] [place] [address] XRay Report Signed Patient: MATTY GARCES MR#: [id number] : 1970 Acct:[id number] Age/Sex: 54 / M ADM Date: 06/16/25 Loc: MS 201-[address]: Bonnie Tobar M.D. Ordering Physician: Sera Wayne M.D. Date of Service: 06/16/25 Procedure(s): XR foot LT min 3V Accession Number(s): [id number] cc: Venus Mendez M.D.; Sera Wayne M.D. The [address] [address] Patient Name: MATTY GARCES MRN: [id number] date: 1970 Sex: M Assigned Patient Location: ED.MAIN Current Patient Location: [place] Accession/Order Number: [id number] Exam Date: 06/16/2025 02:06 Report Date: 06/16/2025 [...] Jr., D.O. 06/16/2025 8:38 AM Dictation Location: [place] [address] Electronically authenticated by: [id number] Y Date: 06/16/2025 08:38 Dictated By: Bora Gomez M.D. Signed By: 06/16/2540 DD/ TD/TT: Tile Ditcher:CRP Reviewed date:06/16/2025 01:01:31 PM Interpretation: Performing Lab: Notes/Report: [facility] ,C Reactive Protein2.79<=0.50 mg/dLPerforming Lab:see noteML - [facility] LBErythrocyte Sedimentation Rate Reviewed date:06/16/2025 01:01:31 PM Interpretation: Performing Lab: Notes/Report: [facility] ,Erythrocyte Sedimentation Rate61<=20 mm/hrPerforming Lab:see noteML - [facility] LBAerobic Culture Reviewed date:06/22/2025 12:38:34 PM [...] Clindamycin Clindamycin S F Aerobic CultureMixed skin esterllita including multiple gram negative rods. Aerobic Culture [...] Clindamycin Clindamycin S F Aerobic CulturePerformed at: - [facility] Aerobic Culture Organism: Staphylococcus aureus : O:MRSA [...] S F Clindamycin Clindamycin S F Aerobic [address] [place], [place] [id number] Aerobic Culture Organism: Staphylococcus aureus : O:MRSA [...] Aerobic CultureLab Director: Arthur Snyder PhD, Phone: [phone] Aerobic Culture Organism: Staphylococcus aureus : O:MRSA [...] Culture Organism: Staphylococcus aureus : O:MRSA Isolated O:[facility] Isolated Organism: 2.1 Antibiotic Interpretation ADAM Status [...] Culture Organism: Staphylococcus aureus : O:MRSA Isolated O:[facility] Isolated Organism: 2.1 Antibiotic Interpretation ADAM Status [...] Culture Organism: Staphylococcus aureus : O:MRSA Isolated O:[facility] Isolated Organism: 2.1 Antibiotic Interpretation ADAM Status [...] Culture Organism: Staphylococcus aureus : O:MRSA Isolated O:[facility] Isolated Organism: 2.1 Antibiotic Interpretation ADAM Status [...] LC - [facility] LB SEE REPORT - Bread Dumper Id information not found for OBX-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 CBC AUTO DIFF Reviewed date:06/17/2025 02:23:52 PM Interpretation: Performing Lab: Notes/Report: [facility] ,White Blood Count8.34.0-11.0 10 3/uLRed Blood Count5.194.70-6.10 10 6/uL Dnqzazzdis38.814.0-18.0 g/aKAjhrhvovpb19.142.0-54.0 %Mean Corpuscular Inajjw98.8 80.0-94.0 fLMean Corpuscular Iyyqtmqeqj74.525.9-34.0 pgMean Corpuscular HGB Conc 32.129.9-35.2 g/dLRed Cell Distribution Width13.811.0-15.0 %Platelet Vmvlh189 150-450 10 3/uLMean Platelet Ajnrbj65.29.5-13.5 fLNeutrophils Percent Auto79.0 43.0-75.0 %Lymphocytes Percent Auto10.320.5-60.0 %Monocytes Percent Auto7.31.7- 12.0 %Eosinophils Percent Auto2.30.9-7.0 %Basophils Percent Auto0.60.2-2.0 % Immature Granulocytes Pct Auto0.50.0-0.5 %Neutrophils Absolute Auto6.51.4-6.5 10 3/uLLymphocytes Absolute Auto0.91.2-3.8 10 3/uLMonocytes Absolute Auto0.60.3-0.8 10 3/uLEosinophils Absolute Auto0.20.0-0.7 10 3/uLBasophils Absolute Auto0.10.0- 0.1 10 3/uLImmature Granulocytes Abs Auto0.040.00-0.03 10 3/uLPerforming Lab:see noteML - [facility] LBCRP Reviewed date:06/17/2025 02:23:52 PM Interpretation: Performing Lab: Notes/Report: [facility] ,C Reactive Protein2.92<=0.50 mg/dLPerforming Lab:see noteML - [facility] LBPROF CHEM 8 (BAS METB) Reviewed date:06/17/2025 02:23:52 PM Interpretation: Performing Lab: Notes/Report: [facility] ,Vfqrdw415759-206 mmol/LPotassium3.83.5-5.1 mmol/ZRpocagja63604-186 mmol/LCarbon Gpxasis24.121.0-32.0 mmol/LAnion Gap12.1Oitglrc02168-767 mg/dLBlood Urea Nitrogen7.07.0-18.0 mg/dLCreatinine0.810.70-1.30 mg/dLEstimated GFR ( Elizabeth>60>=60 mL/min/1.73m 2Estimated GFR (Non- Gwen>60>=60 mL/min/1.73m 2BUN Creatinine Ratio8.1Qvhxfmh3.58.5-10.1 mg/dLPerforming Lab:see noteML - [facility] LBErythrocyte Sedimentation Rate Reviewed date:06/17/2025 02:23:52 PM Interpretation: Performing Lab: Notes/Report: [facility] ,Erythrocyte Sedimentation Rate88<=20 mm/hrPerforming Lab:see noteML - [facility] LBCBC AUTO DIFF Reviewed date:06/18/2025 12:55:01 PM Interpretation: Performing Lab: Notes/Report: [facility] ,White Blood Count7.74.0-11.0 10 3/uLRed Blood Count5.094.70-6.10 10 6/uL Gpaekbudup82.214.0-18.0 g/jIEljhhyvpmk41.842.0-54.0 %Mean Corpuscular Izdgep96.0 80.0-94.0 fLMean Corpuscular Odkwfwynue70.925.9-34.0 pgMean Corpuscular HGB Conc 31.729.9-35.2 g/dLRed Cell Distribution Width13.711.0-15.0 %Platelet Mnlzc711 150-450 10 3/uLMean Platelet Volume9.99.5-13.5 fLNeutrophils Percent Auto74.9 43.0-75.0 %Lymphocytes Percent Auto12.620.5-60.0 %Monocytes Percent Auto8.61.7- 12.0 %Eosinophils Percent Auto2.50.9-7.0 %Basophils Percent Auto0.80.2-2.0 % Immature Granulocytes Pct Auto0.60.0-0.5 %Neutrophils Absolute Auto5.81.4-6.5 10 3/uLLymphocytes Absolute Auto1.01.2-3.8 10 3/uLMonocytes Absolute Auto0.70.3-0.8 10 3/uLEosinophils Absolute Auto0.20.0-0.7 10 3/uLBasophils Absolute Auto0.10.0- 0.1 10 3/uLImmature Granulocytes Abs Auto0.050.00-0.03 10 3/uLPerforming Lab:see noteML - [facility] LBCRP Reviewed date:06/18/2025 12:55:01 PM Interpretation: Performing Lab: Notes/Report: [facility] ,C Reactive Protein1.51<=0.50 mg/dLPerforming Lab:see noteML - [facility] LBGLYCOHEMOGLOBIN A1C Reviewed date:06/18/2025 12:55:01 PM Interpretation: Performing Lab: Notes/Report: Comment Add to an already drawn sample [facility] ,Glycohemoglobin A1C5.84.5-6.2 % ADA RECOMMENDED LIMIT 4.0 - 6.0 ADA THERAPEUTIC TARGET < 7.0 ACTION SUGGESTED > 7.0 Estimated Average Oogdwom735Tuxmxnpfgd Lab:see note - [facility] LB PROF CHEM 8 (BAS METB) Reviewed date:06/18/2025 12:55:01 PM Interpretation: Performing Lab: Notes/Report: [facility] ,Jcdnol035164-160 mmol/LPotassium3.93.5-5.1 mmol/KHkqqzesp30662-389 mmol/LCarbon Mdqiwfm44.421.0-32.0 mmol/LAnion Gap10.1Iicheev1902-612 mg/dLBlood Urea Nitrogen 8.07.0-18.0 mg/dLCreatinine1.010.70-1.30 mg/dLEstimated GFR ( Elizabeth>60 >=60 mL/min/1.73m 2Estimated GFR (Non- Gwen>60>=60 mL/min/1.73m 2BUN Creatinine Ratio7.1Sgqnkbh4.78.5-10.1 mg/dLPerforming Lab:see noteML - [facility] LBVANCOMYCIN TROUGH Reviewed date:06/18/2025 12:55:01 PM Interpretation: Performing Lab: Notes/Report: [facility] ,Vancomycin Mqnanu00.95.0-20.0 ug/mLPerforming Lab:see noteML - [facility] LBErythrocyte Sedimentation Rate Reviewed date:06/18/2025 12:55:01 PM Interpretation: Performing Lab: Notes/Report: [facility] ,Erythrocyte Sedimentation Rate71<=20 mm/hrPerforming Lab:see noteML - [facility] LBMR foot LT wo con Reviewed date:06/19/2025 06:54:26 PM Interpretation: Performing Lab: Notes/Report: Source Facility: [facility]-[address] [place] [address] [place] [address] Magnetic Resonance Report Signed Patient: MATTY GARCES MR#: [id number] : 1970 Acct:[id number] Age/Sex: 54 / M ADM Date: 06/16/25 Loc: MS 201-[address]: Bonnie Tobar M.D. Ordering Physician: Bonnie Tobar M.D. Date of Service: 06/18/25 Procedure(s): MR castañeda LT wo con Accession Number(s): [id number] cc: Venus Mendez M.D.; Bonnie Tobar M.D. The [place] [address] Patient Name: MATTY GARCES MRN: [id number] date: 1970 Sex: M Assigned Patient Location: MS Current Patient Location: MS Accession/Order Number: [id number] Exam Date: 06/18/2025 13:30 Report Date: 06/18/2025 [...] Irving M.D. 06/18/2025 7:34 PM Dictation Location: [place] [address] Electronically authenticated by: [id number] Y Date: 06/18/2025 19:34 Dictated By: Francis Irving M.D. Signed By: 06/18/251936 DD/ 33 TD/TT: Tile Ditcher:PROF KYLE Roe ([facility]) Reviewed date:06/19/2025 06:54:26 PM Interpretation: Performing Lab: Notes/Report: [facility] ,Ekudym758660-813 mmol/LPotassium3.93.5-5.1 mmol/FMcwgwfmz92998-232 mmol/LCarbon Qpgsbxe80.721.0-32.0 mmol/LAnion Gap11.4Lxkhloc32444-700 mg/dLBlood Urea Horvudbj77.07.0-18.0 mg/dLCreatinine0.880.70-1.30 mg/dLEstimated GFR ( Elizabeth>60>=60 mL/min/1.73m 2Estimated GFR (Non- Gwen>60>=60 mL/min/1.73m 2BUN Creatinine Ratio11.7Cdeafhy5.38.5-10.1 mg/dLPerforming Lab:see noteML - [facility] LBAFB Specimen Processing Reviewed date:08/04/2025 09:03:46 PM Interpretation: Performing Lab: Notes/Report: 1ST LEFT METATASAL CX [facility] ,AFB Specimen ProcessingSee Below For Report AFB Specimen Processing AFB Specimen ProcessingTissue Grinding AFB Specimen Processing Performing Lab:see noteLC - [facility] LBAcid Fast Smear Reviewed date:08/04/2025 09:03:46 PM Interpretation: Performing Lab: Notes/Report: 1ST LEFT METATASAL CX [facility] ,Acid Fast SmearSee Below For Report Acid Fast Smear Negative Performing Lab:see noteLC - [facility] LBAcid Fast Culture Reviewed date:08/04/2025 09:03:46 PM Interpretation: Performing Lab: Notes/Report: 1ST LEFT METATASAL CX [facility] ,Acid Fast CultureSee Below For Report Acid Fast Culture Specimen has been received and testing has been initiated. Acid Fast CultureNegative Acid Fast Culture Specimen has been received and testing has been initiated. Acid Fast CultureNo acid fast bacilli isolated after 6 weeks. Acid Fast Culture Specimen has been received and testing has been initiated. Acid Fast CulturePerformed at: [facility] Acid Fast Culture Specimen has been received and testing has been initiated. Acid Fast [address] [place], [place] [id number] Acid Fast Culture Specimen has been received and testing has been initiated. Acid Fast CultureLab Director: Arthur Snyder PhD, Phone: [phone] Acid Fast Culture Specimen has been received and testing has been initiated. Performing Lab:see note - [facility] LB SEE REPORT - Bread Dumper Id information not found for OBX-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 Fungus Stain Reviewed date:07/19/2025 12:51:00 PM Interpretation: Performing Lab: Notes/Report: 1ST LEFT METATASAL CX [facility] ,Fungus StainSee Below For Report Fungus Stain Fungus StainKOH/Calcofluor preparation: no fungus observed. Fungus Stain Performing Lab:see note - [facility] LBFungus (Mycology) Culture Reviewed date:06/21/2025 06:12:36 PM Interpretation: Performing Lab: Notes/Report: 1ST LEFT METATASAL CX [facility] ,Fungus (Mycology) CultureSee Below For Report Fungus (Mycology) Culture Fungus (Mycology) CultureCulture Report: Fungus (Mycology) Culture Fungus (Mycology) CultureThe specimen submitted for fungus culture has been received and Fungus (Mycology) Culture Fungus (Mycology) Cultureculture has been initiated. Fungus (Mycology) Culture Fungus (Mycology) CulturePerformed at: [facility] Fungus (Mycology) Culture Fungus (Mycology) [address] [place], [place] [id number] Fungus (Mycology) Culture Fungus (Mycology) CultureLab Director: Arthur Snyder PhD, Phone: [phone] Fungus (Mycology) Culture Performing Lab:see note - [facility] LB SEE REPORT - Bread Dumper Id information not found for OBX-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 Gram Stain Result Reviewed date:06/22/2025 12:04:05 PM Interpretation: Performing Lab: Notes/Report: 1ST LEFT METATASAL CX [facility] ,Gram Stain ResultSee Below For Report Gram Stain Result Gram Stain ResultNo white blood cells seen. Gram Stain Result Gram Stain Result Gram Stain Result Gram Stain ResultNo organisms seen Gram Stain Result Gram Stain ResultPerformed at: [facility] Gram Stain Result Gram Stain [address] [place], [place] [id number] Gram Stain Result Gram Stain ResultLab Director: Arthur Snyder PhD, Phone: [phone] Gram Stain Result Gram Stain Result Gram Stain Result Gram Stain Result* This is a corrected result. * Gram Stain Result Gram Stain Result Gram Stain Result Gram Stain ResultA prior result that was reported as final has been changed. Gram Stain Result Performing Lab:see note - [facility] LB SEE REPORT - Bread Dumper Id information not found for OBX-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 Anaerobic Cult, Extended Incub Reviewed date:07/06/2025 [...] days. Anaerobic Cult, Extended Incub Performing Lab[facility] LBTissue Culture Reviewed date:06/25/2025 12:43:42 PM Interpretation: Performing Lab: Notes/Report: 1ST LEFT METATASAL CX [facility] ,Tissue CultureSee Below For Report Tissue Culture Tissue CultureNo growth after 18-24 hours. Tissue Culture Tissue Culture Tissue Culture Tissue CultureNo growth in 36 - 48 hours. Tissue Culture Tissue Culture Tissue Culture Tissue CultureNo growth in 56 - 72 hours. Tissue Culture Tissue CulturePerformed at: [facility] Tissue Culture Tissue [address] [place], [place] [id number] Tissue Culture Tissue CultureLab Director: Arthur Snyder PhD, Phone: [phone] Tissue Culture Performing Lab:see note SEE REPORT - Bread Dumper Id information not found for OBX-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 LC - [facility] LB XR foot LT min 3V Reviewed date:06/21/2025 12:47:02 PM Interpretation: Performing Lab: Notes/Report: Source Facility: [place] [address] [place] [address] XRay Report Signed Patient: MATTY GARCES MR#: [id number] : 1970 Acct:[id number] Age/Sex: 54 / M ADM Date: 06/16/25 Loc: MS 201-[address]: Bonnie Tobar M.D. Ordering Physician: Clarisa Vallejo D.P.M. Date of Service: 06/20/25 Procedure(s): XR foot LT min 3V Accession Number(s): [id number] cc: Clarisa Vallejo D.P.M.; Venus Mendez M.D. [place] [address] Patient Name: MATTY GARCES MRN: [id number] date: 1970 Sex: M Assigned Patient Location: [place] Current Patient Location: [place] Accession/Order Number: [id number] Exam Date: 06/20/2025 14:16 Report Date: 06/20/2025 [...] Rodas M.D. 06/20/2025 10:20 PM Dictation Location: [place] [address] Electronically authenticated by: [id number] Y Date: 06/20/2025 22:20 Dictated By: Venkat Rodas M.D. Signed By: 06/20/252222 DD/ 19 TD/TT: Tile Ditcher:Tissue Culture Reviewed date:07/06/2025 03:55:00 PM Interpretation: Performing Lab: Notes/Report: 1ST LEFT METATASAL CX [facility] ,Tissue CultureSee Below For Report Tissue Culture Tissue CultureNo growth after 18-24 hours. Tissue Culture Tissue Culture Tissue Culture Tissue CultureNo growth in 36 - 48 hours. Tissue Culture Tissue Culture Tissue Culture Tissue CultureNo growth in 56 - 72 hours. Tissue Culture Tissue CulturePerformed at: [facility] Tissue Culture Tissue [address] [place], [place] [id number] Tissue Culture Tissue CultureLab Director: Arthur Snyder PhD, Phone: [phone] Tissue Culture Performing Lab:see note - [facility] LB SEE REPORT - Bread Dumper Id information not found for OBX-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 Fungus (Mycology) Culture Reviewed date:07/19/2025 12:51:00 PM Interpretation: Performing Lab: Notes/Report: 1ST LEFT METATASAL CX [facility] ,Fungus (Mycology) CultureSee Below For Report Fungus (Mycology) Culture Fungus (Mycology) CultureCulture Report: Fungus (Mycology) Culture Fungus (Mycology) CultureThe specimen submitted for fungus culture has been received and Fungus (Mycology) Culture Fungus (Mycology) Cultureculture has been initiated. Fungus (Mycology) Culture Fungus (Mycology) CultureNo yeast or mold isolated after 4 weeks. Fungus (Mycology) Culture Fungus (Mycology) CulturePerformed at: [facility] Fungus (Mycology) Culture Fungus (Mycology) [address] [place], [place] [id number] Fungus (Mycology) Culture Fungus (Mycology) CultureLab Director: Arthur Snyder PhD, Phone: [phone] Fungus (Mycology) Culture Performing Lab:see note - [facility] LB SEE REPORT - Bread Dumper Id information not found for OBX-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 PROF CHEM 8 (BAS METB) Reviewed date:06/21/2025 12:47:02 PM Interpretation: Performing Lab: Notes/Report: [facility] ,Sdxftg858221-405 mmol/LPotassium3.93.5-5.1 mmol/ALkiaowbq18260-751 mmol/LCarbon Dknyjem22.521.0-32.0 mmol/LAnion Gap11.0Rcvidrv06438-614 mg/dLBlood Urea Gqssxugp29.07.0-18.0 mg/dLCreatinine0.830.70-1.30 mg/dLEstimated GFR ( Elizabeth>60>=60 mL/min/1.73m 2Estimated GFR (Non- Gwen>60>=60 mL/min/1.73m 2BUN Creatinine Ratio18.6Punxhcg5.18.5-10.1 mg/dLPerforming Lab:see note - [facility] ([facility]) Reviewed date:06/21/2025 12:47:02 PM Interpretation: Performing Lab: Notes/Report: [facility] ,White Blood Count7.84.0-11.0 10 3/uLRed Blood Count5.294.70-6.10 10 6/uL Coarujzclz65.614.0-18.0 g/lHSqoyadzufj69.742.0-54.0 %Mean Corpuscular Hjwfcm24.3 80.0-94.0 fLMean Corpuscular Sxswuwdaur24.625.9-34.0 pgMean Corpuscular HGB Conc 31.329.9-35.2 g/dLRed Cell Distribution Width13.411.0-15.0 %Platelet Xchmy427 150-450 10 3/uLMean Platelet Volume9.79.5-13.5 fLPerforming Lab:see note - [facility] LBCRP Reviewed date:08/21/2025 04:27:28 PM Interpretation: Performing Lab: Notes/Report: [facility] ,C Reactive Protein1.76<=0.50 mg/dLPerforming Lab:see note - [facility] LBCULTURE WOUND Reviewed date:08/25/2025 05:02:25 PM Interpretation: Performing Lab: Notes/Report: [facility] ,Wound CultureSee Below For Report [facility] RESULT Wound Culture Wound CultureSEEA SEE SCANNED REPORT, ABNORMAL^SEE SCANNED REPORT, ABNORMAL [facility] RES[facility] RESULT Wound Culture Performing Lab:see noteML - [facility] LBLACTATE or LACTIC ACID Reviewed date:08/21/2025 04:27:28 PM Interpretation: Performing Lab: Notes/Report: [facility] ,Lactate/Lactic Acid1.10.4-2.0 mmol/LPerforming Lab:see noteML - [facility] LBLIPID PROFILE Reviewed date:08/21/2025 04:27:28 PM Interpretation: Performing Lab: Notes/Report: Comment add on The [facility] ,Hiadlsgyzoadc305<=150 mg/tRXrdcdkqkfyb823<=200 mg/dLHDL Qfbrkhbdbrn1614-93 mg/dL > or =60 mg/dl - LOW CARDIOVASCULAR RISK <40 mg/dl - HIGH CARDIOVASCULAR RISK LDL Cholesterol Ezmyrzqdze536.8 <100 mg/dl OPTIMAL 100-129 mg/dl NEAR OR ABOVE OPTIMAL 130-159 mg/dl BORDERLINE HIGH 160-189 mg/dl HIGH >190 mg/dl VERY HIGH VLDL UDGQOMLSIEV30.2Chol HDL Ratio3.6 3.3 - 4.4 LOW RISK 4.4 - 7.1 AVERAGE RISK 7.1 - 11.0 MODERATE RISK >11.0 HIGH RISK Performing Lab:see note - [facility] LBPROF CHEM 8 (BAS METB) Reviewed date:08/21/2025 04:27:28 PM Interpretation: Performing Lab: Notes/Report: [facility] ,Uymmzr948376-829 mmol/LPotassium3.93.5-5.1 mmol/PBieggziw57917-145 mmol/LCarbon Qrdkojx66.321.0-32.0 mmol/LAnion Gap7.7Drywpyh06784-716 mg/dLBlood Urea Nitrogen 15.07.0-18.0 mg/dLCreatinine1.120.70-1.30 mg/dLEstimated GFR ( Elizabeth>60 >=60 mL/min/1.73m 2Estimated GFR (Non- Gwen>60>=60 mL/min/1.73m 2BUN Creatinine Ratio13.6Zhcihky8.08.5-10.1 mg/dLPerforming Lab:see noteML - [facility] LBBlood Culture 1 Reviewed date:08/27/2025 08:50:29 AM Interpretation: Performing Lab: Notes/Report: [facility] ,Blood Culture 1See Below For Report Blood Culture 1 NG5D NO GROWTH AT 5 DAYS.^NO GROWTH AT 5 DAYS. Performing Lab:see note - [facility] LBBlood Culture 2 Reviewed date:08/27/2025 08:50:30 AM Interpretation: Performing Lab: Notes/Report: [facility] ,Blood Culture 2See Below For Report Blood Culture 2 NG5D NO GROWTH AT 5 DAYS.^NO GROWTH AT 5 DAYS. Performing Lab:see [facility] LBErythrocyte Sedimentation Rate Reviewed date:08/21/2025 04:27:28 PM Interpretation: Performing Lab: Notes/Report: [facility] ,Erythrocyte Sedimentation Rate31<=20 mm/hrPerforming Lab:see [facility] LBTroponin I High Sensitivity Reviewed date:08/21/2025 04:27:28 PM Interpretation: Performing Lab: Notes/Report: [facility] ,Troponin I High Sensitivity4.84.0-76.1 pg/mL CUT-OFF POINTS HAVE BEEN ESTABLISHED BASED ON THE FOURTH UNIVERSAL DEFINITION OF MYOCARDIAL INFARCTION. THE UPPER REFERENCE LIMIT (URL) OF TROPONIN, DEFINED THE 99TH PERCENTILE OF cTnI DISTRIBUTION IN A REFERENCE POPULATION, HAS BEEN CONFIRMED THE DECISION THRESHOLD FOR AL DIAGNOSIS. 99TH PERCENTILE = 76.2 PG/ML NOTE: HIGH-SENSITIVITY TROPONIN ASSAY IS NOT INTENDED TO BE USED IN ISOLATION BUT SHOULD BE INTERPRETED IN CONJUNCTION WITH OTHER DIAGNOSTIC AND CLINICAL INFORMATION. Performing Lab:see note - [facility] LBCA echo doppler complete Reviewed date:08/21/2025 08:42:50 PM Interpretation: Performing Lab: Notes/Report: Source Facility: [facility]-[address] [place] [address] [place] [address] Cardiology Report Signed Patient: MATTY GARCES MR#: [id number] : 1970 Acct:[id number] Age/Sex: 54 / M ADM Date: 08/21/25 Loc: MS 229-[address]: Bonnie Tobar M.D. Ordering Physician: Gerber Pratt M.D. Date of Service: 08/21/25 Procedure(s): CA echo doppler complete Accession Number(s): [id number] cc: Gerber Pratt M.D.; Venus Mendez M.D. Patient Name: MATTY GARCES MR#: [id number] : 1970 Exam Date: 08/21/2025 Ordering Doctor: GERBER PRATT ECHOCARDIOGRAM REPORT PROCEDURE: CA ECHO DOPPLER COMPLETE INDICATIONS: R/O endocarditis, leg cellulitis COMPARISON: None. DESCRIPTION: COMPLETE ECHOCARDIOGRAM Real-time transthoracic echocardiography with 2D, M-mode, spectral and color flow Doppler performed. QUALITY: Technical quality was good. LEFT VENTRICLE: Normal chamber size. Borderline left ventricular hypertrophy. Global left ventricular systolic function is normal. Estimated left ventricular ejection fraction is 60-65%. LV EF: Normal left ventricular ejection fraction, (>55%). DIASTOLIC: Normal diastolic function. ATRIAL SEPTUM: LEFT ATRIUM: Normal chamber size. RIGHT ATRIUM: Normal chamber size. RIGHT VENTRICLE: Normal chamber size. Normal right ventricular systolic function. TRICUSPID VALVE: Normal mobility and thickness. No vegetations are present. No stenosis with trivial regurgitation. No evidence of pulmonary hypertension. The RVSP measures 19 mmHg. MITRAL VALVE: Normal mobility and thickness. No vegetations are present. No evidence of mitral valve stenosis. There is no mitral annular calcification. AORTIC VALVE: Normal trileaflet appearance. No visible sclerosis. Normal leaflet mobility. No vegetations are present. No evidence of aortic valve stenosis. No aortic regurgitation. AORTIC ROOT: Normal diameter and appearance. The aortic root measures 3.6 cm. The ascending aorta measures 2.7 cm. PULMONIC VALVE: Normal thickness and mobility. No stenosis. No regurgitation. No vegetations are present. PERICARDIUM: No evidence of pericardial effusion. IVC: Collapses with inspiration. The IVC measures 2.0 cm. PLEURA: CONCLUSION: 1. Normal ventricular size and systolic function. Estimated LVEF is 60-65%. 2. Normal diastolic function. 3. No significant valvular dysfunction. 4. Normal right-sided pressures. 5. No gross evidence of vegetation seen on this transthoracic study. Adult Echocardiography Procedure Report Left Ventricle LVEDD (3.7 - 5.6 cm): 5.17 cm LVESD (2.2 - 4.0 cm): 3.54 cm LVIVS thickness (0.6 - 1.2 cm): 1.13 cm LVPW thickness (0.5 - 1.0 cm): 0.86 cm e': 0.12 m/s E - e': 8.63 LVOT Max Gradient: 7.09 mm[Hg] LVOT Area (cm2): 1.33 m/s Peak Velocity (LVOT): 1.33 m/s Mean Velocity (LVOT): 0.92 m/s LVOT Diameter 2.12 cm Left Ventricular Ejection Fraction: 60-65 % Left Atrium LA Volume Index (2D A2C): 36.27 ml/m2 Left Atrium Systolic Dimension: 4.09 cm Mitral Valve MV E to A Ratio: 1.28 Mitral Valve A-Wave Peak Velocity: 0.79 m/s Mitral Valve E-Wave Peak Velocity: 1.02 m/s Right Ventricle RV Internal Diastolic Dimension: 3.88 cm Aorta AO Root Diam: 3.60 cm Ascending Ao Diam: 2.73 cm Aortic Valve AoV Area (Peak Adalberto): 2.82 cm2, 2.75 cm2 AoV Area (VTI): 2.60 cm2, 2.53 cm2 Peak Velocity(Antegrade Flow): 1.72 m/s, 1.62 m/s Peak Gradient(Antegrade Flow): 11.79 mm[Hg], 10.55 mm[Hg] Mean Velocity(Antegrade Flow): 1.25 m/s, 1.20 m/s Mean Gradient(Antegrade Flow): 6.99 mm[Hg], 6.39 mm[Hg] Velocity Time Integral: 35.82 cm, 34.09 cm Tricuspid Valve Peak Velocity (Regurgitant Flow): 1.62 m/s, 1.51 m/s, 2.02 m/s Pulmonic Valve Mean Gradient: 2.20 mm[Hg] Mean Velocity: 0.69 m/s Peak Velocity: 1.06 m/s, 1.09 m/s Peak Gradient: 4.49 mm[Hg], 4.73 mm[Hg] Right Atrium Right Atrium Systolic Pressure: 38.49 ml, 38.49 ml Dictated by: Ramiro Walls M.D. on 08/21/2025 at 18:30 Approved by: Ramiro Walls M.D. on 08/21/2025 at 18:34 Dictated By: RAMIRO WALLS Signed By: 08/21/251834 DD/ 33 TD/TT: Tile Ditcher:CT abdomen pelvis wo con Reviewed date:08/21/2025 04:27:28 PM Interpretation: Performing Lab: Notes/Report: Source Facility: [place] [address] CT Scan Report Signed Patient: MATTY GARCES MR#: [id number] : 1970 Acct:[id number] Age/Sex: 54 / M ADM Date: 08/21/25 Loc: MS 229-[address]: Bonnie Tobar M.D. Ordering Physician: Gerber Pratt M.D. Date of Service: 08/21/25 Procedure(s): CT abdomen pelvis wo con Accession Number(s): [id number] cc: Venus Mendez M.D. [place] [address] Patient Name: MATTY GARCES MRN: [id number] date: 1970 Sex: M Assigned Patient Location: MT Current Patient Location: MT Accession/Order Number: [id number] Exam Date: 08/21/2025 10:20 Report Date: 08/21/2025 10:48 At the request of: GERBER PRATT MD Procedure: CT abdomen pelvis wo con CT abdomen pelvis wo con 08/21/2025 10:24 AM SIGNS AND SYMPTOMS: femoral hernia?groin swelling TECHNIQUE: Multidetector ct axial images of the abdomen and pelvis were obtained without IV contrast. Multiplanar reformats were performed and reviewed to further define anatomy and possible pathology. CT was performed with one or more of the following dose reduction techniques: Automated exposure control, adjustment of the mA and/or kV according to patient size, or use of iterative reconstruction technique. COMPARISON: 01/04/2022. FINDINGS: Lower Chest: Within normal limits. ABDOMEN: Liver: Within normal limits. Bile Ducts: Normal caliber. Gallbladder: No calcified gallstones. Normal caliber wall. Pancreas: Within normal limits. Spleen: Within normal limits. Adrenals: Within normal limits. Kidneys: There is a 2 mm nonobstructing stone in the inferior pole of the right renal collecting system. Pelvis: Reproductive Organs: No pelvic masses. Ureters: Within normal limits. Bladder: Within normal limits. Bowel: Normal caliber. Mesenteric Lymph Nodes: No enlarged mesenteric lymph nodes. Peritoneum: No ascites or free air, no fluid collection. Vessels: Atherosclerotic changes are noted in the abdominal aorta. Retroperitoneum: Within normal limits. Abdominal Wall: There are mildly prominent inguinal lymph nodes, right greater than left. The largest on the right measures 2.4 x 1.6 cm in greatest dimension. Bones: Degenerative changes are noted in the thoracolumbar spine. Degenerative changes are noted in the hips and sacroiliac joints. CT/CT abdomen pelvis wo con IMPRESSION: No acute intra-abdominal pathology. No evidence of inguinal or retroperitoneal hematoma. There are mildly prominent inguinal lymph nodes, right greater than left. The largest on the right measures 2.4 x 1.6 cm in greatest dimension. Impression dictated by: Francis Irving M.D. 08/21/2025 10:48 AM Dictation Location: [facility] Electronically authenticated by: [id number] Y Date: 08/21/2025 10:48 Dictated By: Francis Irving M.D. Signed By: 08/21/25 1051 DD/ 1048 TD/TT: Tile Ditcher:XR tibia fibula RT 2V Reviewed date:08/21/2025 04:27:28 PM Interpretation: Performing Lab: Notes/Report: Source Facility: [place] [address] XRay Report Signed Patient: MATTY GARCES MR#: [id number] : 1970 Acct:[id number] Age/Sex: 54 / M ADM Date: 08/21/25 Loc: ER Attending Dr: Ordering Physician: Howie Jean Date of Service: 08/21/25 Procedure(s): XR tibia fibula RT 2V Accession Number(s): [id number] cc: Howie Jean; Venus Mendez M.D. [place] [id number] Patient Name: MATTY GARCES MRN: [id number] date: 1970 Sex: M Assigned Patient Location: ER Current Patient Location: ED.MAIN Accession/Order Number: [id number] Exam Date: 08/21/2025 04:30 Report Date: 08/21/2025 08:12 At the request of: HOWIE JEAN MD Procedure: XR tibia fibula RT 2V XR tibia fibula RT 2V 08/21/2025 4:39 AM SIGNS AND SYMPTOMS: osteomeylitis PROTOCOL: Frontal and lateral radiographs of the right tibia and fibula COMPARISON: 05/07/2025 FINDINGS: There is hardware fixation of a previous fracture of the distal shaft of the tibia. There is periosteal new bone formation with incomplete healing. There is a transversely oriented fracture of the distal fibula with similar periosteal new bone formation and incomplete healing. No osteolytic or bony destructive process to suggest osteomyelitis. There is Achilles surface calcaneal spurring. XR/XR tibia fibula RT 2V IMPRESSION: There are healing fractures of the distal tibia and fibula without hardware complication. Healing remains incomplete. No osteolytic or bony destructive process to suggest osteomyelitis. Impression dictated by: Francis Irving M.D. 08/21/2025 8:12 AM Dictation Location: [place] [address] Electronically authenticated by: [id number] Y Date: 08/21/2025 08:12 Dictated By: Francis Irving M.D. Signed By: 08/21/25814 DD/ 1 TD/TT: Tile Ditcher:MAGNESIUM Reviewed date:08/23/2025 05:52:55 PM Interpretation: Performing Lab: Notes/Report: [facility] ,Magnesium1.91.8-2.4 mg/dLPerforming Lab:see noteML - [facility] LB PROF 14(COMP METB) Reviewed date:08/23/2025 05:52:55 PM Interpretation: Performing Lab: Notes/Report: [facility] ,Llwsxv821676-756 mmol/LPotassium3.93.5-5.1 mmol/VCoaqtpmg96820-011 mmol/LCarbon Mxnpykh48.121.0-32.0 mmol/LAnion Gap8.6Dwrgndn88132-871 mg/dLBlood Urea Qheffbas59.07.0-18.0 mg/dLCreatinine0.880.70-1.30 mg/dLEstimated GFR ( Elizabeth>60>=60 mL/min/1.73m 2Estimated GFR (Non- Gwen>60>=60 mL/min/1.73m 2BUN Creatinine Ratio13.3Kjojgsv6.68.5-10.1 mg/dLBilirubin Total0.40.2-1.0 mg/dL Aspartate Amino Ddmbawapztg3723-76 U/LAlanine Rbaswuhfrdrmuoyl1640-66 U/L Alkaline Quuoxikgriu14310-789 U/LTotal Protein7.66.4-8.2 g/dLAlbumin Level3.2 3.4-5.0 g/dLGlobulin4.4Albumin Globulin Ratio0.7Performing Lab:see noteML - [facility] LBVANCOMYCIN TROUGH Reviewed date:08/23/2025 05:52:55 PM Interpretation: Performing Lab: Notes/Report: [facility] ,Vancomycin Jwckim18.75.0-20.0 ug/mLPerforming Lab:see noteML - [facility] LBMAGNESIUM Reviewed date:08/25/2025 05:02:25 PM Interpretation: Performing Lab: Notes/Report: [facility] ,Magnesium2.11.8-2.4 mg/dLPerforming Lab:see noteML - [facility] LB PROF 14(COMP METB) Reviewed date:08/22/2025 06:38:50 PM Interpretation: Performing Lab: Notes/Report: [facility] ,Nljkga955652-819 mmol/LPotassium4.03.5-5.1 mmol/KHpnddkmb45900-995 mmol/LCarbon Zejryxy49.421.0-32.0 mmol/LAnion Gap4.2Spspnfe24719-804 mg/dLBlood Urea Lnlimspt29.07.0-18.0 mg/dLCreatinine1.030.70-1.30 mg/dLEstimated GFR ( Elizabeth>60>=60 mL/min/1.73m 2Estimated GFR (Non- Gwen>60>=60 mL/min/1.73m 2BUN Creatinine Ratio9.3Fjtnpkl1.68.5-10.1 mg/dLBilirubin Total0.40.2-1.0 mg/dL Aspartate Amino Dsoqkarstok6878-89 U/LAlanine Zspqyamcbwxotcww4498-19 U/L Alkaline Piqadgrvlao71455-880 U/LTotal Protein7.46.4-8.2 g/dLAlbumin Level3.4 3.4-5.0 g/dLGlobulin4.0Albumin Globulin Ratio0.9Performing Lab:see noteML - [facility] LBINFLUENZA A AND B AG (Not yet reviewed by provider) Interpretation: Performing Lab: Notes/Report: [facility] ,Influenza Virus A AntigenNegative Negative for Flu A protein antigen. Infection due to Flu A cannot be ruled out. Flu A antigen in the sample may be below the detection limit of the test. Influenza Virus B AntigenNegative Negative for Flu B protein antigen. Infection due to Flu B cannot be ruled out. Flu B antigen in the sample may be below the detection limit of the test. Performing Lab:see noteML - [facility] LBRSV (Not yet reviewed by provider) Interpretation: Performing Lab: Notes/Report: [facility] ,Respiratory Syncytial VirusNot DetectedNOT DETECTEPerforming Lab:see noteML - [facility] JIIJPB-KzX-5 Ag* (Not yet reviewed by provider) Interpretation: Performing Lab: Notes/Report: [facility] ,SARS-CoV-2 AgNEGATIVENEGATIVE This test has not been FDA cleared or approved, but has been authorized by the FDA under an Emergency Use Authorization (EUA) for use by authorized laboratories certified under CLIA that meet the requirements to perform moderate or high complexity testing. This test has been authorized only for the detection of proteins from SARS-CoV-2, not for any other viruses or pathogens. The emergency use of this test is authorized for the duration of the declaration that circumstances exist justifying the authorization of emergency use of in vitro diagnostic tests for detection and/or diagnosis of Covid-19 under section 564(b)(1) of the Act, 21 U.S.C. 360bbb-3(b)(1), unless the declaration is terminated or authorization is revoked sooner. Performing Lab:see noteML - [facility] LBMAGNESIUM Reviewed date:08/22/2025 06:38:50 PM Interpretation: Performing Lab: Notes/Report: [facility] ,Magnesium2.11.8-2.4 mg/dLPerforming Lab:see noteML - [facility] LB CBC AUTO DIFF Reviewed date:08/22/2025 06:38:50 PM Interpretation: Performing Lab: Notes/Report: [facility] ,White Blood Count7.54.0-11.0 10 3/uLRed Blood Count4.844.70-6.10 10 6/uL Rkamqlruic89.514.0-18.0 g/aXNneodsbtul54.342.0-54.0 %Mean Corpuscular Sqyerd34.3 80.0-94.0 fLMean Corpuscular Mehucabzad22.925.9-34.0 pgMean Corpuscular HGB Conc 32.729.9-35.2 g/dLRed Cell Distribution Width15.811.0-15.0 %Platelet Fdrgd800 150-450 10 3/uLMean Platelet Volume9.79.5-13.5 fLNeutrophils Percent Auto78.5 43.0-75.0 %Lymphocytes Percent Auto10.420.5-60.0 %Monocytes Percent Auto8.11.7- 12.0 %Eosinophils Percent Auto1.90.9-7.0 %Basophils Percent Auto0.40.2-2.0 % Immature Granulocytes Pct Auto0.70.0-0.5 %Neutrophils Absolute Auto5.91.4-6.5 10 3/uLLymphocytes Absolute Auto0.81.2-3.8 10 3/uLMonocytes Absolute Auto0.60.3- 0.8 10 3/uLEosinophils Absolute Auto0.10.0-0.7 10 3/uLBasophils Absolute Auto0.0 0.0-0.1 10 3/uLImmature Granulocytes Abs Auto0.050.00-0.03 10 3/uLPerforming Lab:see noteML - [facility] LBLACTATE or LACTIC ACID Reviewed date:08/21/2025 04:27:28 PM Interpretation: Performing Lab: Notes/Report: [facility] ,Lactate/Lactic Acid0.60.4-2.0 mmol/LPerforming Lab:see noteML - [facility] LBCT lower leg RT wo con Reviewed date:08/21/2025 04:27:28 PM Interpretation: Performing Lab: Notes/Report: Source Facility: [facility] [place] [address] [place] [address] CT Scan Report Signed Patient: MATTY GARCES MR#: [id number] : 1970 Acct:[id number] Age/Sex: 54 / M ADM Date: 08/21/25 Loc: MS 229-[address]: Bonnie Tobar M.D. Ordering Physician: Gerber Pratt M.D. Date of Service: 08/21/25 Procedure(s): CT lower leg RT wo con Accession Number(s): [id number] cc: Venus Mendez M.D. [facility] [place] [address] Patient Name: MATTY GARCES MRN: [id number] date: 1970 Sex: M Assigned Patient Location: MT Current Patient Location: MT Accession/Order Number: [id number] Exam Date: 08/21/2025 12:36 Report Date: 08/21/2025 13:19 At the request of: GERBER PRATT MD Procedure: CT lower leg RT wo con CT lower leg RT wo con 08/21/2025 12:44 PM SIGNS AND SYMPTOMS: right lower leg cellulitis, recent orif TECHNIQUE: Multidetector CT axial slices of the right lower leg without IV contrast. Multiplanar reformats were performed and viewed on a separate workstation and reviewed to further define anatomy and possible pathology. CT was performed with one or more of the following dose reduction techniques: Automated exposure control, adjustment of the mA and/or kV according to patient size, or use of iterative reconstruction technique. COMPARISON: 08/21/2025 FINDINGS: There is intramedullary madhu fixation of a fracture of the distal shaft of the tibia with incomplete healing. Lucency surrounds the distal aspect of the intramedullary madhu suggesting hardware loosening. There is periosteal new bone formation similar to the prior study. There is a healing fracture of the distal shaft of the fibula maintains incompletely healed. No osteolytic or bony destructive process is noted to suggest osteomyelitis. The ankle mortise is preserved. Bony destructive changes are noted in the interphalangeal joint of the great toe with narrowing of the first metatarsophalangeal joint. A linear radiodense foreign body is noted along the interspace between the second and third metatarsals. There is diffuse soft tissue swelling. No definitive evidence of abscess. Prepatellar soft tissue swelling is noted. CT/CT lower leg RT wo con IMPRESSION: There is intramedullary madhu fixation of a fracture of the distal shaft of the tibia with incomplete healing. Lucency surrounds the distal aspect of the intramedullary madhu suggesting hardware loosening. There is a healing fracture of the distal shaft of the fibula maintains incompletely healed. No osteolytic or bony destructive process is noted to suggest osteomyelitis. There is diffuse soft tissue swelling. No definitive evidence of abscess. Bony destructive changes are noted in the interphalangeal joint of the great toe with narrowing of the first metatarsophalangeal joint. This is similar to the prior exam. A linear radiodense foreign body is noted along the interspace between the second and third metatarsals. This is unchanged. Impression dictated by: Francis Irving M.D. 08/21/2025 1:19 PM Dictation Location: [place] [address] Electronically authenticated by: [id number] Y Date: 08/21/2025 13:19 Dictated By: Francis Irving M.D. Signed By: 08/21/25 1322 DD/ 1319 TD/TT: Tile Ditcher:XR foot RT min 3V Reviewed date:08/21/2025 04:27:28 PM Interpretation: Performing Lab: Notes/Report: Source Facility: [facility]-[address] [place] [address] [place] [address] XRay Report Signed Patient: MATTY GARCES MR#: [id number] : 1970 Acct:[id number] Age/Sex: 54 / M ADM Date: 08/21/25 Loc: ER Attending Dr: Ordering Physician: Howie Jean Date of Service: 08/21/25 Procedure(s): XR foot RT min 3V Accession Number(s): [id number] cc: Howie Jean; Venus Mendez M.D. [place] [address] Patient Name: MATTY GARCES MRN: [facility]:[id number] date: 1970 Sex: M Assigned Patient Location: ED.MAIN Current Patient Location: ED.MAIN Accession/Order Number: [id number] Exam Date: 08/21/2025 06:50 Report Date: 08/21/2025 08:15 At the request of: HOWIE JEAN MD Procedure: XR foot RT min 3V XR foot RT min 3V 08/21/2025 6:55 AM SIGNS AND SYMPTOMS: pain PROTOCOL: 3 views of the right foot COMPARISON: 01/03/2024 FINDINGS: There is a 1.7 cm linear radiodense foreign body in the interspace between the second and third metatarsals. Diffuse soft tissue swelling. There is narrowing of the first metatarsophalangeal joint with destructive changes of the interphalangeal joint of the great toe. There is plantar and Achilles surface calcaneal spurring. There is soft tissue swelling greatest along the great toe. XR/XR foot RT min 3V IMPRESSION: Soft tissue swelling is noted along the great toe suspicious for cellulitis. Bony destructive changes are noted in the interphalangeal joints of the great toe suspicious for osteomyelitis. This has progressed with the prior exam. There is a 1.7 cm linear radiodense foreign body in the interspace between the second and third metatarsals. Diffuse soft tissue swelling. This is unchanged. Impression dictated by: Francis Irving M.D. 08/21/2025 8:15 AM Dictation Location: [place] [address] Electronically authenticated by: [id number] Y Date: 08/21/2025 08:15 Dictated By: Francis Irving M.D. Signed By: 08/21/25816 DD/ 4 TD/TT: Tile Ditcher:GLYCOHEMOGLOBIN A1C Reviewed date:08/21/2025 04:27:28 PM Interpretation: Performing Lab: Notes/Report: Comment add on [facility] ,Glycohemoglobin A1C5.94.5-6.2 % ADA RECOMMENDED LIMIT 4.0 - 6.0 ADA THERAPEUTIC TARGET < 7.0 ACTION SUGGESTED > 7.0 Estimated Average Grwtelu229Jfwibijnwi Lab:see noteML - [facility] LB CBC AUTO DIFF Reviewed date:08/21/2025 04:27:28 PM Interpretation: Performing Lab: Notes/Report: [facility] ,White Blood Count12.34.0-11.0 10 3/uLRed Blood Count4.594.70-6.10 10 6/uL Baubeimvnl29.014.0-18.0 g/oIIjcjnlkpdr77.242.0-54.0 %Mean Corpuscular Odbfrk08.4 80.0-94.0 fLMean Corpuscular Behwwbgdkf55.325.9-34.0 pgMean Corpuscular HGB Conc 33.229.9-35.2 g/dLRed Cell Distribution Width15.511.0-15.0 %Platelet Founn116 150-450 10 3/uLMean Platelet Yosrtw53.09.5-13.5 fLPerforming Lab:see noteML - [facility] LBXR FOREIGN BODY EYE Reviewed date:06/18/2025 02:32:50 PM Interpretation: Performing Lab: Notes/Report: Source Facility: [facility]-[address] [place] [address] [place] [address] XRay Report Signed Patient: MATTY GARCES MR#: [id number] : 1970 Acct:[id number] Age/Sex: 54 / M ADM Date: 06/16/25 Loc: MS 201-[address]: Bonnie Tobar M.D. Ordering Physician: Bonnie Tobar M.D. Date of Service: 06/18/25 Procedure(s): XR foreign body eye UBALDO Accession Number(s): [id number] cc: Venus Mendez M.D.; Bonnie Tobar M.D. [place] [address] Patient Name: MATTY GARCES MRN: [id number] date: 1970 Sex: M Assigned Patient Location: MS Current Patient Location: MS Accession/Order Number: [id number] Exam Date: 06/18/2025 13:15 Report Date: 06/18/2025 13:22 At the request of: BONNIE TOBAR MD Procedure: XR foreign body eye UBALDO Orbits 2 views. Reason for exam: Pre-MRI. FINDINGS: No radiopaque foreign body. No bony destruction. XR/XR foreign body eye UBALDO IMPRESSION: No radio opaque foreign body. Impression dictated by: Bora Gomez Jr., D.O. 06/18/2025 1:22 PM Dictation Location: [place] [address] Electronically authenticated by: [id number] Y Date: 06/18/2025 13:22 Dictated By: Bora Gomez M.D. Signed By: 06/18/25 1325 DD/ 1322 TD/TT: Tile Ditcher:CBC no Diff (Hemogram) Reviewed date:03/07/2025 09:35:46 PM Interpretation: Performing Lab: Notes/Report: [facility] ,White Blood Count6.84.0-11.0 10 3/uLRed Blood Count4.534.70-6.10 10 6/uL Dtnjzfaiof67.314.0-18.0 g/vAWvwvjqhrel10.342.0-54.0 %Mean Corpuscular Jfwehe04.0 80.0-94.0 fLMean Corpuscular Ryzcqwxpxi74.425.9-34.0 pgMean Corpuscular HGB Conc 33.029.9-35.2 g/dLRed Cell Distribution Width14.611.0-15.0 %Platelet Gkcxh488 150-450 10 3/uLMean Platelet Volume9.99.5-13.5 fLPerforming Lab:see noteML - [facility] LBPROF CHEM 8 (BAS METB) Reviewed date:03/07/2025 09:35:46 PM Interpretation: Performing Lab: Notes/Report: [facility] ,Gvqfze030360-605 mmol/LPotassium4.43.5-5.1 mmol/ZBtzfsiwq11495-658 mmol/LCarbon Spuexmc80.021.0-32.0 mmol/LAnion Gap10.7Ttodsto77380-071 mg/dLBlood Urea Zjblmuyb73.07.0-18.0 mg/dLCreatinine0.870.70-1.30 mg/dLEstimated GFR ( Elizabeth>60>=60 mL/min/1.73m 2Estimated GFR (Non- Gwen>60>=60 mL/min/1.73m 2BUN Creatinine Ratio16.2Kzavjpe5.28.5-10.1 mg/dLPerforming Lab:see noteML - [facility] LBAerobe ID + Suscept Reviewed date:03/11/2025 05:04:50 [...] O:MICLUT Isolated Aerobe ID + SusceptPerformed at: CB - [facility] Aerobe ID + Suscept O:MICLUT Isolated Aerobe ID + [id number], [place], [place] [id number] Aerobe ID + Suscept O:MICLUT Isolated Aerobe ID + SusceptLab Director: Arthur Snyder PhD, Phone: [phone] Aerobe ID + Suscept O:MICLUT Isolated Performing Lab:see note LC - [facility] LB SEE REPORT - Bread Dumper Id information not found for 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-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 US venous doppler LE BI Reviewed date:10/08/2024 12:37:32 PM Interpretation: Performing Lab: Notes/Report: Source Facility: [place] [address] Ultrasound Report Signed Patient: MATTY GARCES MR#: [id number] : 1970 Acct:[id number] Age/Sex: 54 / M ADM Date: 10/07/24 Loc: ER Attending Dr: Ordering Physician: Veronique Garrett Date of Service: 10/07/24 Procedure(s): US venous doppler LE RT Accession Number(s): [id number] cc: Venus Mendez M.D.; Veronique Garrett [place] [address] Patient Name: MATTY GARCES MRN: [id number] date: 1970 Sex: M Assigned Patient Location: ER Current Patient Location: ER Accession/Order Number: [id number] Exam Date: 10/07/2024 15:34 Report Date: 10/07/2024 [...] M.D. Signed By: 10/07/241643 DD/ 41 TD/TT: Tile Ditcher:Venous Blood Gas Reviewed date:10/08/2024 12:37:32 PM Interpretation: Performing Lab: Notes/Report: [facility] ,pH VBG7.4447.330-7.157YPF3 VBG51.740.0-52.0 mmHgPerforming Lab:see note - [facility] LBErythrocyte Sedimentation Rate Reviewed date:10/08/2024 12:37:32 PM Interpretation: Performing Lab: Notes/Report: [facility] ,Erythrocyte Sedimentation Rate69<=20 mm/hrPerforming Lab:see note - [facility] [facility] LBBlood Culture 2 Reviewed date:10/14/2024 04:42:10 PM Interpretation: Performing Lab: Notes/Report: LEFT [facility] ,Blood Culture 2See Below For Report Blood Culture 2 NG5D NO GROWTH AT 5 DAYS. Performing Lab:see note - [facility] LBBlood Culture 1 Reviewed date:10/14/2024 04:42:10 PM Interpretation: Performing Lab: Notes/Report: RIGHT [facility] ,Blood Culture 1See Below For Report Blood Culture 1 NG5D NO GROWTH AT 5 DAYS. Performing Lab:see [facility] LBPROF 14(COMP METB) Reviewed date:10/08/2024 12:37:32 PM Interpretation: Performing Lab: Notes/Report: [facility] ,Ksupka578936-676 mmol/LPotassium3.93.5-5.1 mmol/QVipokqyz64426-534 mmol/LCarbon Lpzmojd05.221.0-32.0 mmol/LAnion Gap8.5Nejwivy9708-455 mg/dLBlood Urea Nitrogen 12.07.0-18.0 mg/dLCreatinine1.290.70-1.30 mg/dLEstimated GFR ( Elizabeth>60 >=60 mL/min/1.73m 2Estimated GFR (Non- Ame58>=60 mL/min/1.73m 2BUN Creatinine Ratio9.0Buchttr0.78.5-10.1 mg/dLBilirubin Total0.60.2-1.0 mg/dL Aspartate Amino Vjarwodzumo7253-94 U/LAlanine Anyrtlrrnpqkxvoj1230-69 U/L Alkaline Hqabudewvbr03814-298 U/LTotal Protein7.66.4-8.2 g/dLAlbumin Level3.3 3.4-5.0 g/dLGlobulin4.3Albumin Globulin Ratio0.8Performing Lab:see noteML - [facility] LBLACTATE or LACTIC ACID Reviewed date:10/08/2024 12:37:32 PM Interpretation: Performing Lab: Notes/Report: [facility] ,Lactate/Lactic Acid2.00.4-2.0 mmol/LPerforming Lab:see noteML - [facility] LBCRP Reviewed date:10/08/2024 12:37:32 PM Interpretation: Performing Lab: Notes/Report: [facility] ,C Reactive Protein2.61<=0.50 mg/dLPerforming Lab:see noteML - [facility] LBCBC AUTO DIFF Reviewed date:10/08/2024 12:37:32 PM Interpretation: Performing Lab: Notes/Report: [facility] ,White Blood Count8.84.0-11.0 10 3/uLRed Blood Count4.744.70-6.10 10 6/uL Tvwzncsyet31.714.0-18.0 g/qXKomvmmjwaq44.742.0-54.0 %Mean Corpuscular Ezqdnw18.0 80.0-94.0 fLMean Corpuscular Ocengreqrt84.825.9-34.0 pgMean Corpuscular HGB Conc 30.529.9-35.2 g/dLRed Cell Distribution Width15.711.0-15.0 %Platelet Fqvgt020 150-450 10 3/uLMean Platelet Volume9.19.5-13.5 fLNeutrophils Percent Auto80.6 43.0-75.0 %Lymphocytes Percent Auto8.920.5-60.0 %Monocytes Percent Auto6.61.7- 12.0 %Eosinophils Percent Auto1.70.9-7.0 %Basophils Percent Auto0.80.2-2.0 % Immature Granulocytes Pct Auto1.40.0-0.5 %Neutrophils Absolute Auto7.11.4-6.5 10 3/uLLymphocytes Absolute Auto0.81.2-3.8 10 3/uLMonocytes Absolute Auto0.60.3- 0.8 10 3/uLEosinophils Absolute Auto0.20.0-0.7 10 3/uLBasophils Absolute Auto0.1 0.0-0.1 10 3/uLImmature Granulocytes Abs Auto0.120.00-0.03 10 3/uLPerforming Lab:see noteML - [facility] LBPROF 14(COMP METB) Reviewed date:10/05/2024 06:15:03 PM Interpretation: Performing Lab: Notes/Report: [facility] ,Raizpz145389-447 mmol/LPotassium3.73.5-5.1 mmol/NEsvlvlrq1713-139 mmol/LCarbon Pseyuoq87.821.0-32.0 mmol/LAnion Gap5.7Runqbpv2420-527 mg/dLBlood Urea Nitrogen 9.07.0-18.0 mg/dLCreatinine1.080.70-1.30 mg/dLEstimated GFR ( Elizabeth>60 >=60 mL/min/1.73m 2Estimated GFR (Non- Gwen>60>=60 mL/min/1.73m 2BUN Creatinine Ratio8.9Mdrefku9.68.5-10.1 mg/dLBilirubin Total0.70.2-1.0 mg/dL Aspartate Amino Glaegoiwavs6389-40 U/LAlanine Klcgeyjxcokagtoy1348-09 U/L Alkaline Qcyhgzxacdg58393-592 U/LTotal Protein7.66.4-8.2 g/dLAlbumin Level3.2 3.4-5.0 g/dLGlobulin4.4Albumin Globulin Ratio0.7Performing Lab:see noteML - [facility] LBCBC AUTO DIFF Reviewed date:10/05/2024 06:15:03 PM Interpretation: Performing Lab: Notes/Report: [facility] ,White Blood Count9.14.0-11.0 10 3/uLRed Blood Count4.634.70-6.10 10 6/uL Svlqhveydz27.514.0-18.0 g/sSWwqmucmlun45.042.0-54.0 %Mean Corpuscular Oqkwxc62.4 80.0-94.0 fLMean Corpuscular Rmapomqunn61.025.9-34.0 pgMean Corpuscular HGB Conc 31.329.9-35.2 g/dLRed Cell Distribution Width15.311.0-15.0 %Platelet Ccghg949 150-450 10 3/uLMean Platelet Volume9.29.5-13.5 fLNeutrophils Percent Auto77.2 43.0-75.0 %Lymphocytes Percent Auto9.820.5-60.0 %Monocytes Percent Auto7.71.7- 12.0 %Eosinophils Percent Auto2.20.9-7.0 %Basophils Percent Auto0.80.2-2.0 % Immature Granulocytes Pct Auto2.30.0-0.5 %Neutrophils Absolute Auto7.01.4-6.5 10 3/uLLymphocytes Absolute Auto0.91.2-3.8 10 3/uLMonocytes Absolute Auto0.70.3- 0.8 10 3/uLEosinophils Absolute Auto0.20.0-0.7 10 3/uLBasophils Absolute Auto0.1 0.0-0.1 10 3/uLImmature Granulocytes Abs Auto0.210.00-0.03 10 3/uLPerforming Lab:see noteML - [facility] LBXR tibia fibula RT 2V Reviewed date:09/24/2024 10:37:52 AM Interpretation: Performing Lab: Notes/Report: Source Facility: [facility]-[address] [place] [address] [place] [address] XRay Report Signed Patient: MATTY GARCES MR#: [id number] : 1970 Acct:[id number] Age/Sex: 53 / M ADM Date: 09/23/24 Loc: ER Attending Dr: Ordering Physician: Kaylin Glass Date of Service: 09/23/24 Procedure(s): XR tibia fibula RT 2V Accession Number(s): [id number] cc: Venus Mendez M.D.; Kaylin Glass [place] [id number] Patient Name: MATTY GARCES MRN: [id number] date: 1970 Sex: M Assigned Patient Location: ER Current Patient Location: ED.MAIN Accession/Order Number: [id number] Exam Date: 09/23/2024 06:48 Report Date: 09/23/2024 [...] M.D. Signed By: 09/23/24724 DD/ 1 TD/TT: Tile Ditcher:XR tibia fibula RT 2V Reviewed date:09/24/2024 10:37:52 AM Interpretation: Performing Lab: Notes/Report: Source Facility: [place] [address] [place] [address] XRay Report Signed Patient: MATTY GARCES MR#: [id number] : 1970 Acct:[id number] Age/Sex: 53 / M ADM Date: 09/23/24 Loc: ER Attending Dr: Ordering Physician: Kaylin Glass Date of Service: 09/23/24 Procedure(s): XR tibia fibula RT 2V Accession Number(s): [id number] cc: Venus Mendez M.D.; Kaylin Glass [place] [id number] Patient Name: MATTY GARCES MRN: [facility]:[id number] date: 1970 Sex: M Assigned Patient Location: ER Current Patient Location: ER Accession/Order Number: [id number] Exam Date: 09/23/2024 05:40 Report Date: 09/23/2024 [...] Davis M.D. Signed By: 09/23/2438 DD/ TD/TT: Tile Ditcher:XR chest 1V Reviewed date:09/24/2024 10:37:52 AM Interpretation: Performing Lab: Notes/Report: Source Facility: [place] [address] [place] [address] XRay Report Signed Patient: MATTY GARCES MR#: [id number] : 1970 Acct:[id number] Age/Sex: 53 / M ADM Date: 09/23/24 Loc: ER Attending Dr: Ordering Physician: Kaylin Glass Date of Service: 09/23/24 Procedure(s): XR chest 1V Accession Number(s): [id number] cc: Venus Mendez M.D.; Kaylin Glass [place] [address] Patient Name: MATTY GARCES MRN: [facility]:[id number] date: 1970 Sex: M Assigned Patient Location: ER Current Patient Location: ER Accession/Order Number: [id number] Exam Date: 09/23/2024 05:40 Report Date: 09/23/2024 [...] Davis M.D. Signed By: 09/23/2438 DD/ TD/TT: Tile Ditcher:ECG 12 lead Reviewed date:09/25/2024 08:20:56 PM Interpretation: Performing Lab: Notes/Report: Source Facility: [place] [address] [place] [address] Electrocardiograph Report Signed Patient: MATTY GARCES MR#: [id number] : 1970 Acct:[id number] Age/Sex: 53 / M ADM Date: 09/23/24 Loc: ER Attending Dr: Ordering Physician: Kaylin Glass Date of Service: 09/23/24 Procedure(s): ECG 12 lead Accession Number(s): [id number] cc: [facility] Test Date: 2024-09-23 Pat Name: MATTY GARCES Department: Room: - Gender: Male Onion Tier: : 1970 Requested By: VENUS MENDEZ Order Number: [id number] Reading MD: VENUS MENDEZ Measurements Intervals [place] Rate: 72 P: 43 [place]: 184 QRS: 53 QRSD: 94 T: 23 QT: 406 QTc: 429 Interpretive Statements 1100 Sinus rhythm 4068 Nonspecific Twave abnormality 9130 borderline ECG Compared to ECG 09/20/2024 13:05:52 ST (T wave) deviation no longer present Electronically Signed On 09-25-2024 8:09:26 EST by VENUS MENDEZ Dictated By: Venus Mendez M.D. Signed By: 09/25/24 0809 DD/ 0551 TD/TT: Tile Ditcher:XR ankle RT min 3V Reviewed date:09/24/2024 10:37:52 AM Interpretation: Performing Lab: Notes/Report: Source Facility: [place] [address] XRay Report Signed Patient: MATTY GARCES MR#: [id number] : 1970 Acct:[id number] Age/Sex: 53 / M ADM Date: 09/23/24 Loc: ER Attending Dr: Ordering Physician: Kaylin Glass Date of Service: 09/23/24 Procedure(s): XR ankle RT min 3V Accession Number(s): [id number] cc: Venus Mendez M.D.; Kaylin Glass [place] [phone] Patient Name: MATTY GARCES MRN: [facility]:[id number] date: 1970 Sex: M Assigned Patient Location: ER Current Patient Location: ER Accession/Order Number: [id number] Exam Date: 09/23/2024 05:40 Report Date: 09/23/2024 [...] Altaf Davis M.D. Signed By: 09/23/2437 DD/ 4 TD/TT: Tile Ditcher:XR KNEE RT 3V Reviewed date:09/24/2024 10:37:52 AM Interpretation: Performing Lab: Notes/Report: Source Facility: [place] [address] XRay Report Signed Patient: MATTY GARCES MR#: [id number] : 1970 Acct:[id number] Age/Sex: 53 / M ADM Date: 09/23/24 Loc: ER Attending Dr: Ordering Physician: Kaylin Glass Date of Service: 09/23/24 Procedure(s): XR knee RT 3V Accession Number(s): [id number] cc: Venus Mendez M.D.; Kaylin Glass [place] [address] Patient Name: MATTY GARCES MRN: [facility]:[id number] date: 1970 Sex: M Assigned Patient Location: ER Current Patient Location: ER Accession/Order Number: [id number] Exam Date: 09/23/2024 05:40 Report Date: 09/23/2024 [...] Davis M.D. Signed By: 09/23/2437 DD/ TD/TT: Tile Ditcher:Troponin I High Sensitivity Reviewed date:09/24/2024 10:37:52 AM Interpretation: Performing Lab: Notes/Report: [facility] ,Troponin I High Qbpnanmlhjp88.04.0-76.1 pg/mL CUT-OFF POINTS HAVE BEEN ESTABLISHED BASED ON THE FOURTH UNIVERSAL DEFINITION OF MYOCARDIAL INFARCTION. THE UPPER REFERENCE LIMIT (URL) OF TROPONIN, DEFINED THE 99TH PERCENTILE OF cTnI DISTRIBUTION IN A REFERENCE POPULATION, HAS BEEN CONFIRMED THE DECISION THRESHOLD FOR AL DIAGNOSIS. 99TH PERCENTILE = 76.2 PG/ML NOTE: HIGH-SENSITIVITY TROPONIN ASSAY IS NOT INTENDED TO BE USED IN ISOLATION BUT SHOULD BE INTERPRETED IN CONJUNCTION WITH OTHER DIAGNOSTIC AND CLINICAL INFORMATION. Performing Lab:see noteML - [facility] LBManual Differential Reviewed date:09/24/2024 10:37:52 AM Interpretation: Performing Lab: Notes/Report: [facility] ,Segmented Neutrophils % Xijuqz70.043.0-75.0Lymphocytes Percent Iwjuit57.020.5- 60.0 %Monocytes Percent Manual9.01.7-12.0 %Eosinophils Percent Manual3.00.9-7.0 %Basophils Percent Manual1.00.2-2.0 %Segmented Neut Absolute Manual5.391.4-6.5 10 3/uLLymphocytes Absolute Manual0.781.20-3.80 10 3/uLMonocytes Absolute Manual 0.630.30-0.80 10 3/uLEosinophils Absolute Manual0.210.00-0.70 10 3/uLBasophils Abs Manual0.070.00-0.10 10 3/uLPerforming Lab:see noteML - [facility] LBProthrombin Time INR Reviewed date:09/24/2024 10:37:52 AM Interpretation: Performing Lab: Notes/Report: [facility] ,Prothrombin Time12.99.0-11.6 secINR1.24 DESIRED INR: 2.0-3.0 CONDITIONS NOT LISTED BELOW 2.5-3.5 FOR PROSTHETIC HEART VALVE REPLACEMENT 2.5-3.5 RECURRENT THROMBOSIS Performing Lab:see note - [facility] LBPTT Reviewed date:09/24/2024 10:37:52 AM Interpretation: Performing Lab: Notes/Report: [facility] ,Partial Thromboplastin Time28.722.3-36.2 secPerforming Lab:see note - [facility] LBPROF CHEM 8 (BAS METB) Reviewed date:09/24/2024 10:37:52 AM Interpretation: Performing Lab: Notes/Report: [facility] ,Thoeiv487374-204 mmol/LPotassium3.83.5-5.1 mmol/XYkkpqahq23457-246 mmol/LCarbon Pnfzzvh33.021.0-32.0 mmol/LAnion Gap10.6Ekzytlr99371-186 mg/dLBlood Urea Nitrogen5.07.0-18.0 mg/dLCreatinine1.160.70-1.30 mg/dLEstimated GFR ( Elizabeth>60>=60 mL/min/1.73m 2Estimated GFR (Non- Gwen>60>=60 mL/min/1.73m 2BUN Creatinine Ratio4.0Rjthlrp5.08.5-10.1 mg/dLPerforming Lab:see note - [facility] LBCBC AUTO DIFF Reviewed date:09/24/2024 10:37:52 AM Interpretation: Performing Lab: Notes/Report: [facility] ,White Blood Count7.14.0-11.0 10 3/uLRed Blood Count5.404.70-6.10 10 6/uL Fdthkiishv30.514.0-18.0 g/vHYdxsdgwzbl06.242.0-54.0 %Mean Corpuscular Myoxxn86.4 80.0-94.0 fLMean Corpuscular Utftiqpdxr57.925.9-34.0 pgMean Corpuscular HGB Conc 30.729.9-35.2 g/dLRed Cell Distribution Width15.611.0-15.0 %Platelet Nplvz925 150-450 10 3/uLMean Platelet Volume9.69.5-13.5 fLPerforming Lab:see noteML - [facility] LBVANCOMYCIN TROUGH Reviewed date:09/24/2024 10:37:52 AM Interpretation: Performing Lab: Notes/Report: [facility] ,Vancomycin Qmuyus22.45.0-20.0 ug/mLPerforming Lab:see noteML - [facility] LBCBC AUTO DIFF Reviewed date:09/24/2024 10:37:52 AM Interpretation: Performing Lab: Notes/Report: [facility] ,White Blood Count6.44.0-11.0 10 3/uLRed Blood Count5.524.70-6.10 10 6/uL Bcgoudfedz32.614.0-18.0 g/qOUnwtepldcd89.842.0-54.0 %Mean Corpuscular Razwrz82.6 80.0-94.0 fLMean Corpuscular Wkudhacbmu07.425.9-34.0 pgMean Corpuscular HGB Conc 30.529.9-35.2 g/dLRed Cell Distribution Width15.211.0-15.0 %Platelet Kssxo948 150-450 10 3/uLMean Platelet Volume9.89.5-13.5 fLNeutrophils Percent Auto72.0 43.0-75.0 %Lymphocytes Percent Auto13.220.5-60.0 %Monocytes Percent Auto10.71.7- 12.0 %Eosinophils Percent Auto1.90.9-7.0 %Basophils Percent Auto0.80.2-2.0 % Immature Granulocytes Pct Auto1.40.0-0.5 %Neutrophils Absolute Auto4.61.4-6.5 10 3/uLLymphocytes Absolute Auto0.81.2-3.8 10 3/uLMonocytes Absolute Auto0.70.3- 0.8 10 3/uLEosinophils Absolute Auto0.10.0-0.7 10 3/uLBasophils Absolute Auto0.1 0.0-0.1 10 3/uLImmature Granulocytes Abs Auto0.090.00-0.03 10 3/uLPerforming Lab:see noteML - [facility] LBBox Test Reviewed date:09/24/2024 05:28:36 PM Interpretation: Performing Lab: Notes/Report: WOUND CULTURE L GREAT TOE [facility] ,BOX Test Sent OutWOUND CULTUREBOX Test Reference LabFIRELANDSBOX Test Date Sent 09/21/24BOX Test ResultSEE SCANNED REPORTPerforming Lab:see note - [facility] LBTroponin I High Sensitivity Reviewed date:09/20/2024 07:18:09 PM Interpretation: Performing Lab: Notes/Report: [facility] ,Troponin I High Sensitivity7.24.0-76.1 pg/mL CUT-OFF POINTS HAVE BEEN ESTABLISHED BASED ON THE FOURTH UNIVERSAL DEFINITION OF MYOCARDIAL INFARCTION. THE UPPER REFERENCE LIMIT (URL) OF TROPONIN, DEFINED THE 99TH PERCENTILE OF cTnI DISTRIBUTION IN A REFERENCE POPULATION, HAS BEEN CONFIRMED THE DECISION THRESHOLD FOR AL DIAGNOSIS. 99TH PERCENTILE = 76.2 PG/ML NOTE: HIGH-SENSITIVITY TROPONIN ASSAY IS NOT INTENDED TO BE USED IN ISOLATION BUT SHOULD BE INTERPRETED IN CONJUNCTION WITH OTHER DIAGNOSTIC AND CLINICAL INFORMATION. Performing Lab:see noteML - [facility] LBCT angio chest Reviewed date:09/20/2024 07:18:09 PM Interpretation: Performing Lab: Notes/Report: Source Facility: [facility]-[address] [place] [address] [place] [address] CT Scan Report Signed Patient: MATTY GARCES MR#: [id number] : 1970 Acct:[id number] Age/Sex: 53 / M ADM Date: 09/19/24 Loc: ICU 270-[address]: Venus Mendez M.D. Ordering Physician: Venus Mendez M.D. Date of Service: 09/20/24 Procedure(s): CT angio chest Accession Number(s): [id number] cc: Venus Mnedez M.D. [place] [address] Patient Name: MATTY GARCES MRN: [facility]:[id number] date: 1970 Sex: M Assigned Patient Location: ICU Current Patient Location: ICU Accession/Order Number: [id number] Exam Date: 09/20/2024 13:15 Report Date: 09/20/2024 [...] Caicedo M.D. Signed By: 09/20/24 1418 DD/ 141 TD/TT: Tile Ditcher:ECG 12 lead Reviewed date:09/21/2024 09:07:03 PM Interpretation: Performing Lab: Notes/Report: Source Facility: [place] [address] Electrocardiograph Report Signed Patient: MATTY GARCES MR#: [id number] : 1970 Acct:[id number] Age/Sex: 53 / M ADM Date: 09/19/24 Loc: ICU 270- Attending Dr: Venus Mendez M.D. Ordering Physician: Venus Mendez M.D. Date of Service: 09/20/24 Procedure(s): ECG 12 lead Accession Number(s): [id number] cc: [facility] Test Date: 2024-09-20 Pat Name: MATTY GARCES Department: Room: [facility] Gender: Male Onion Tier: : 1970 Requested By: VENUS MENDEZ Order Number: [id number] Reading MD: KENNETH ROWE Measurements Intervals [place] Rate: 67 P: 54 AZ: 186 QRS: 62 QRSD: 94 T: 31 QT: 394 QTc: 409 Interpretive Statements [address]/T wave changes Electronically Signed On 09-21-2024 20:51:20 EST by KENNETH ROWE Dictated By: Kenneth Rowe D.O. Signed By: 09/21/242050 DD/ 1305 TD/TT: Tile Ditcher:Troponin I High Sensitivity Reviewed date:09/20/2024 07:18:09 PM Interpretation: Performing Lab: Notes/Report: [facility] ,Troponin I High Sensitivity6.24.0-76.1 pg/mL CUT-OFF POINTS HAVE BEEN ESTABLISHED BASED ON THE FOURTH UNIVERSAL DEFINITION OF MYOCARDIAL INFARCTION. THE UPPER REFERENCE LIMIT (URL) OF TROPONIN, DEFINED THE 99TH PERCENTILE OF cTnI DISTRIBUTION IN A REFERENCE POPULATION, HAS BEEN CONFIRMED THE DECISION THRESHOLD FOR AL DIAGNOSIS. 99TH PERCENTILE = 76.2 PG/ML NOTE: HIGH-SENSITIVITY TROPONIN ASSAY IS NOT INTENDED TO BE USED IN ISOLATION BUT SHOULD BE INTERPRETED IN CONJUNCTION WITH OTHER DIAGNOSTIC AND CLINICAL INFORMATION. Performing Lab:see noteML - [facility] LBPROF 14(COMP METB) Reviewed date:09/20/2024 07:18:09 PM Interpretation: Performing Lab: Notes/Report: [facility] ,Smsacf421977-761 mmol/LPotassium4.03.5-5.1 mmol/APsjafshw81945-333 mmol/LCarbon Qgexdvs70.521.0-32.0 mmol/LAnion Gap9.9Flpiheo8166-653 mg/dLBlood Urea Nitrogen 11.07.0-18.0 mg/dLCreatinine1.000.70-1.30 mg/dLEstimated GFR ( Elizabeth>60 >=60 mL/min/1.73m 2Estimated GFR (Non- Gwen>60>=60 mL/min/1.73m 2BUN Creatinine Ratio11.3Rgdsiqk3.78.5-10.1 mg/dLBilirubin Total0.60.2-1.0 mg/dL Aspartate Amino Dfzcvbfvekh9882-71 U/LAlanine Uywwsvyomrcuisoq3222-58 U/L Alkaline Zbktnfhytvu32018-099 U/LTotal Protein7.06.4-8.2 g/dLAlbumin Level3.1 3.4-5.0 g/dLGlobulin3.9Albumin Globulin Ratio0.8Performing Lab:see noteML - [facility] LBCBC AUTO DIFF Reviewed date:09/20/2024 07:18:09 PM Interpretation: Performing Lab: Notes/Report: [facility] ,White Blood Count6.64.0-11.0 10 3/uLRed Blood Count5.194.70-6.10 10 6/uL Xrchungvrs89.814.0-18.0 g/hIZcczwvauie48.142.0-54.0 %Mean Corpuscular Ohofgh46.9 80.0-94.0 fLMean Corpuscular Uuiogicrbl30.625.9-34.0 pgMean Corpuscular HGB Conc 30.629.9-35.2 g/dLRed Cell Distribution Width15.211.0-15.0 %Platelet Jvlga488 150-450 10 3/uLMean Platelet Tpuxxn27.29.5-13.5 fLNeutrophils Percent Auto74.1 43.0-75.0 %Lymphocytes Percent Auto10.420.5-60.0 %Monocytes Percent Auto11.41.7- 12.0 %Eosinophils Percent Auto2.10.9-7.0 %Basophils Percent Auto0.90.2-2.0 % Immature Granulocytes Pct Auto1.10.0-0.5 %Neutrophils Absolute Auto4.91.4-6.5 10 3/uLLymphocytes Absolute Auto0.71.2-3.8 10 3/uLMonocytes Absolute Auto0.80.3- 0.8 10 3/uLEosinophils Absolute Auto0.10.0-0.7 10 3/uLBasophils Absolute Auto0.1 0.0-0.1 10 3/uLImmature Granulocytes Abs Auto0.070.00-0.03 10 3/uLPerforming Lab:see noteML - [facility] LBBNP Reviewed date:09/20/2024 07:18:09 PM Interpretation: Performing Lab: Notes/Report: [facility] ,NT Pro B Type Natriuretic Idum056.0<=900.0 pg/mLPerforming Lab:see note - [facility] LBBLOOD GASES BTY Reviewed date:09/20/2024 07:18:09 PM Interpretation: Performing Lab: Notes/Report: [facility] ,pH ABG7.3537.350-7.450ABG MRE613.035.0-45.0 mmHgRESULTS CALLED TO ALEXIS MARTE,RNPO2 ABG91.680.0-100.0 mmHgHCO3 ABG34.422.0-26.0 mmol/LBase Excess ABG 8.9-2.0-2.0 mmol/LOxygen Saturation ABG97.9Allen TestPOSITIVEPOSITIVEO2 Mode BIPAPFractionated Inspired Blwhho62Xtbjnzuc SiteLRBIPAP Hjyjqiyc95/87Bupf33 Performing Lab:see note - [facility] LBErythrocyte Sedimentation Rate Reviewed date:09/19/2024 07:12:29 PM Interpretation: Performing Lab: Notes/Report: [facility] ,Erythrocyte Sedimentation Rate51<=20 mm/hrPerforming Lab:see note - [facility] LBCBC AUTO DIFF Reviewed date:09/19/2024 07:12:29 PM Interpretation: Performing Lab: Notes/Report: [facility] ,White Blood Count7.64.0-11.0 10 3/uLRed Blood Count5.224.70-6.10 10 6/uL Qljscfcmda46.014.0-18.0 g/iWEsrafrlgbv91.642.0-54.0 %Mean Corpuscular Qkjexc52.4 80.0-94.0 fLMean Corpuscular Cjebxjmrrs91.825.9-34.0 pgMean Corpuscular HGB Conc 31.429.9-35.2 g/dLRed Cell Distribution Width15.111.0-15.0 %Platelet Fruvc694 150-450 10 3/uLMean Platelet Volume9.89.5-13.5 fLPerforming Lab:see noteML - [facility] LBPROF 14(COMP METB) Reviewed date:08/25/2025 05:02:25 PM Interpretation: Performing Lab: Notes/Report: [facility] ,Ohxcwe500541-821 mmol/LPotassium4.23.5-5.1 mmol/KEqiqmqdq81795-836 mmol/LCarbon Fewleni57.621.0-32.0 mmol/LAnion Gap12.9Swlzslw47144-088 mg/dLBlood Urea Tjqqghhi87.07.0-18.0 mg/dLCreatinine0.940.70-1.30 mg/dLEstimated GFR ( Elizabeth>60>=60 mL/min/1.73m 2Estimated GFR (Non- Gwen>60>=60 mL/min/1.73m 2BUN Creatinine Ratio16.5Dgszerr6.68.5-10.1 mg/dLBilirubin Total0.30.2-1.0 mg/dL Aspartate Amino Lgnrondarxe7451-24 U/LAlanine Gjdbcsojaqybpuus2668-53 U/L Alkaline Bcxzuqtvnrx65569-551 U/LTotal Protein7.86.4-8.2 g/dLAlbumin Level3.3 3.4-5.0 g/dLGlobulin4.5Albumin Globulin Ratio0.7Performing Lab:see noteML - [facility] LBCBC AUTO DIFF Reviewed date:08/25/2025 05:02:25 PM Interpretation: Performing Lab: Notes/Report: [facility] ,White Blood Count5.94.0-11.0 10 3/uLRed Blood Count5.174.70-6.10 10 6/uL Brgzsgkymo52.314.0-18.0 g/rIYxjekuuuja21.842.0-54.0 %Mean Corpuscular Rlsjzj21.7 80.0-94.0 fLMean Corpuscular Qgdugibxgb83.725.9-34.0 pgMean Corpuscular HGB Conc 32.629.9-35.2 g/dLRed Cell Distribution Width15.511.0-15.0 %Platelet Hrewy831 150-450 10 3/uLMean Platelet Volume9.39.5-13.5 fLNeutrophils Percent Auto68.2 43.0-75.0 %Lymphocytes Percent Auto18.520.5-60.0 %Monocytes Percent Auto7.81.7- 12.0 %Eosinophils Percent Auto3.70.9-7.0 %Basophils Percent Auto1.00.2-2.0 % Immature Granulocytes Pct Auto0.80.0-0.5 %Neutrophils Absolute Auto4.01.4-6.5 10 3/uLLymphocytes Absolute Auto1.11.2-3.8 10 3/uLMonocytes Absolute Auto0.50.3- 0.8 10 3/uLEosinophils Absolute Auto0.20.0-0.7 10 3/uLBasophils Absolute Auto0.1 0.0-0.1 10 3/uLImmature Granulocytes Abs Auto0.050.00-0.03 10 3/uLPerforming Lab:see noteML - [facility] LBErythrocyte Sedimentation Rate Reviewed date:08/25/2025 05:02:25 PM Interpretation: Performing Lab: Notes/Report: [facility] ,Erythrocyte Sedimentation Rate66<=20 mm/hrPerforming Lab:see noteML - [facility] LBPROF 14(COMP METB) Reviewed date:08/25/2025 05:02:25 PM Interpretation: Performing Lab: Notes/Report: [facility] ,[id number] mmol/LPotassium3.43.5-5.1 mmol/NBclhvnbt95728-022 mmol/LCarbon Udwiwva79.921.0-32.0 mmol/LAnion Gap11.4Liuzamu19371-641 mg/dLBlood Urea Vxemxrzc46.07.0-18.0 mg/dLCreatinine0.910.70-1.30 mg/dLEstimated GFR ( Elizabeth>60>=60 mL/min/1.73m 2Estimated GFR (Non- Gwen>60>=60 mL/min/1.73m 2BUN Creatinine Ratio16.9Mznvqvr2.88.5-10.1 mg/dLBilirubin Total0.30.2-1.0 mg/dL Aspartate Amino Ubuwscmjzyh5810-25 U/LAlanine Tpmqjoakzrenhepc3655-21 U/L Alkaline Ainvuyicdvx61422-548 U/LTotal Protein8.16.4-8.2 g/dLAlbumin Level3.5 3.4-5.0 g/dLGlobulin4.6Albumin Globulin Ratio0.8Performing Lab:see noteML - [facility] LBMAGNESIUM Reviewed date:08/25/2025 05:02:25 PM Interpretation: Performing Lab: Notes/Report: [facility] ,Magnesium2.01.8-2.4 mg/dLPerforming Lab:see noteML - [facility] LB CRP Reviewed date:08/25/2025 05:02:25 PM Interpretation: Performing Lab: Notes/Report: [facility] ,C Reactive Protein2.66<=0.50 mg/dLPerforming Lab:see noteML - [facility] LBCBC AUTO DIFF Reviewed date:08/25/2025 05:02:25 PM Interpretation: Performing Lab: Notes/Report: The [facility] ,White Blood Count7.24.0-11.0 10 3/uLRed Blood Count5.344.70-6.10 10 6/uL Zuplzurhzj59.714.0-18.0 g/zRXpacuhwqer91.742.0-54.0 %Mean Corpuscular Qocgec36.7 80.0-94.0 fLMean Corpuscular Mmmrzqcxua98.525.9-34.0 pgMean Corpuscular HGB Conc 32.929.9-35.2 g/dLRed Cell Distribution Width15.411.0-15.0 %Platelet Dawrw286 150-450 10 3/uLMean Platelet Vreduu72.09.5-13.5 fLNeutrophils Percent Auto68.1 43.0-75.0 %Lymphocytes Percent Auto18.620.5-60.0 %Monocytes Percent Auto8.11.7- 12.0 %Eosinophils Percent Auto3.10.9-7.0 %Basophils Percent Auto0.80.2-2.0 % Immature Granulocytes Pct Auto1.30.0-0.5 %Neutrophils Absolute Auto4.91.4-6.5 10 3/uLLymphocytes Absolute Auto1.31.2-3.8 10 3/uLMonocytes Absolute Auto0.60.3- 0.8 10 3/uLEosinophils Absolute Auto0.20.0-0.7 10 3/uLBasophils Absolute Auto0.1 0.0-0.1 10 3/uLImmature Granulocytes Abs Auto0.090.00-0.03 10 3/uLPerforming Lab:see noteML - [facility] LBCBC AUTO DIFF Reviewed date:08/23/2025 05:52:55 PM Interpretation: Performing Lab: Notes/Report: [facility] ,White Blood Count6.64.0-11.0 10 3/uLRed Blood Count4.954.70-6.10 10 6/uL Bprneknogi44.714.0-18.0 g/tMNixkhupdyu35.042.0-54.0 %Mean Corpuscular Robtke83.8 80.0-94.0 fLMean Corpuscular Pdxxynqahl98.725.9-34.0 pgMean Corpuscular HGB Conc 32.629.9-35.2 g/dLRed Cell Distribution Width15.311.0-15.0 %Platelet Jyrau927 150-450 10 3/uLMean Platelet Volume9.89.5-13.5 fLNeutrophils Percent Auto72.5 43.0-75.0 %Lymphocytes Percent Auto14.620.5-60.0 %Monocytes Percent Auto7.71.7- 12.0 %Eosinophils Percent Auto3.30.9-7.0 %Basophils Percent Auto1.10.2-2.0 % Immature Granulocytes Pct Auto0.80.0-0.5 %Neutrophils Absolute Auto4.81.4-6.5 10 3/uLLymphocytes Absolute Auto1.01.2-3.8 10 3/uLMonocytes Absolute Auto0.50.3- 0.8 10 3/uLEosinophils Absolute Auto0.20.0-0.7 10 3/uLBasophils Absolute Auto0.1 0.0-0.1 10 3/uLImmature Granulocytes Abs Auto0.050.00-0.03 10 3/uLPerforming Lab:see noteML - The [facility] Reason For Referral Diagnosis 1 Ankle pain (M25.579) Referral Organization [facility] Referring Provider First Name Kareem Referring Provider Last Name Andrea Referring Provider [facility] jayden Referred Provider Clarisa Vallejo Referred Provider Specialty Podiatry Referral Priority Routine Diagnosis 1 Left fibular fractur e (S82.402A) Referral Organization [facility] Referring Provider First Name Kareem Referring Provider Last Name Andrea Referring Provider [facility] jayden Referred Provider Fahad Bland Referred Provider Specialty Orthopedic S urgery Referral Priority Routine Medications Medication SIG (Take, Route, Frequency, Duration) Notes Start Date End Date Status Sildenafil Citrate 25 MG 1 tablet as needed Oral ly daily 4ActiveProtonix 40 MG1 tablet Orally twice a day; Duration: 30 days 5ActiveCholecalciferol 125 MCG (5000 UT)1 tablet on the tongue and allow to dissolve Orally Once a dayActiveCeleXA 40 MG1 tablet Orally Once a day; Duration: 30 days4ActivePotassium Chloride ER 10 MEQTAKE ONE TABLET BY MOUTH TWICE A DAY WITH FOOD; Duration: 30ActiveEpiPen 2-Doug 0.3 MG/0.3MLas directed Injection once5ActiveSUMAtriptan Succinate 100 MG1 tablet at least 2 hours between doses as needed Orally Twice a dayPRNActiveDoxazosin Mesylate 4 MG1/2 tablet Orally Once a day; Duration: 90 daysActiveEliquis 5 MG TAKE TWO TABLETS BY MOUTH TWICE A DAY FOR 6 DAYS, THEN 1 TAB TWICE A DAY THEREAFTER Oral; Duration:30 DaysActiveSimvastatin 20 mgTAKE ONE TABLET BY MOUTH DAILY IN THE EVENING 30; Duration: 30ActiveGabapentin 600 mgTake 1 tablet orally once daily; Duration: 30 daysActiveXywav 500 MG/ML6ml Orally at bedtime 5ActiveFurosemide 20 mgTAKE ONE TABLET BY MOUTH ONCE DAILY FOR 30 DAYS; Duration: 30Not-TakingTestosterone Cypionate 200 MG/MLInject 0.75 mL Intramuscular WEEKLY; Duration: 28 days5ActiveAspirin 81 81 MG1 tablet Orally Once a dayActiveModafinil 200 MG1 tablet in the morning Orally BIDActive Amantadine HCl 100 MG1 tablet Orally BID; Duration: 30 daysActiveMeclizine HCl 12.5 MG1 tablet as needed Orally prn every 12 hrsPRNActiveCarvedilol 25 MG1 tablet with food Orally Twice a day; Duration: 30 days5Active Ondansetron 4 MG1 tablet on the tongue and allow to dissolve Orally Once a day ActiveBiotin 10 MG1 tablet Orally Once a dayActiveMulti For Him 50+ -as directed OrallyActive Social History Tobacco Use: Social History Observation Description Date Details (start date - stop date) Never Smoker NA - NA Tobacco Use/Smoking Question Answer Notes Patient is a nonsmoker Alcohol Screen (Audit-C) Question Answer Notes Did you have a drink containing alcohol in the p ast year? No Nzozyb7SnvjujkxrojuerIyubpkqwKMWZZ-Z (Standard) Question Answer Notes Did you have a drink containing alcohol in the p ast year? No Ygdflo1DntoplqisglpzxDdtysems Problems Problem Type SNOMED Code ICD Code Onset Dates Problem Status W/U Status Risk Notes Problem Obstructive sleep ap lorna syndrome (disorder) (34540937) Obstructive sleep apnea (adult) (pediatric) (G47.33) ActiveconfirmedProblemFoot ulcer due to type 2 diabetes mellitus (1388783606807) Type 2 diabetes mellitus with foot ulcer (E11.621)ActiveconfirmedProblemInsomnia (472282722)Insomnia, unspecified (G47.00)ActiveconfirmedProblemAcute on chronic hypoxemic and hypercapnic respiratory failure (disorder) (57342597536717)Acute and chronic respiratory failure with hypercapnia (J96.22)ActiveconfirmedProblem Arthropathy associated with a neurological disorder (66386727)Charcot's joint, left ankle and foot (M14.672)ActiveconfirmedProblemHypertension (86379899) Hypertension (I10)ActiveconfirmedProblemGastroesophageal reflux disease (147986938)GERD (gastroesophageal reflux disease) (K21.9)ActiveconfirmedProblem Carpal tunnel syndrome (31852565)Carpal tunnel syndrome (G56.00)Activeconfirmed ProblemAnxiety (47735567)Anxiety (F41.9)ActiveconfirmedProblemPneumonia (682631903)Pneumonia (J18.9)ActiveconfirmedProblemDepression (240790654) Depression (F32.9)ActiveconfirmedProblemObstructive sleep apnea syndrome (52572532)PATEL (obstructive sleep apnea) (G47.33)ActiveconfirmedProblemInsomnia (770480720)Insomnia (G47.00)ActiveconfirmedProblemMigraine (42037162)Migraine (G43.909)ActiveconfirmedProblemLumbar radiculopathy (631902882)Lumbar radiculopathy (M54.16)ActiveconfirmedProblemHypersomnia (02830316)Hypersomnia (G47.10)ActiveconfirmedProblemLumbar arthritis (disorder) (598945124)Lumbar spondylitis (M46.96)ActiveconfirmedProblemCervical disc disease (693587503) Cervical disc disease (M50.90)ActiveconfirmedProblemSystolic murmur (45867180) Systolic murmur (I38)ActiveconfirmedProblemCellulitis (849432977)Cellulitis (L03.90)ActiveconfirmedProblemChronic pain (27796068)Chronic pain (G89.29)Active confirmedProblemLateral epicondylitis (669895338)Lateral epicondylitis (M77.10) ActiveconfirmedProblemOtitis externa (5161438)Otitis externa (H60.90)Active confirmedProblemOtitis externa of left ear (2735953600200832)Otitis externa of left ear (H60.92)ActiveconfirmedProblemArthralgia of the ankle and/or foot (995862537)Left ankle pain (M25.572)ActiveconfirmedProblemRight upper quadrant pain (286760986)Right upper quadrant abdominal pain (R10.11)Activeconfirmed ProblemBursitis (24965190)Bursitis (M71.9)ActiveconfirmedProblemErectile dysfunction (disorder) (424784943)Impotence (N52.9)ActiveconfirmedProblem Decreased testosterone level (932577164)Decreased testosterone level (E29.1) ActiveconfirmedProblemLeft fibular fracture (S82.402A)ActiveconfirmedProblem Ulcer of right foot (disorder) (373113392)Foot ulcer, right (L97.519)Active 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)ActiveconfirmedProblemGangrene due to type 2 diabetes mellitus (disorder) (152229310)Gangrene associated with type 2 diabetes mellitus (E11.52)ActiveconfirmedProblemNon-pressure chronic ulcer of other part of left foot with muscle involvement without evidence of necrosis (L97.525)ActiveconfirmedProblemUlcer of big toe (disorder) (233189128)Chronic ulcer of great toe of left foot with fat layer exposed (L97.522)Activeconfirmed ProblemHyperhidrosis (141925833)Hyperhidrosis (R61)ActiveconfirmedProblemType II diabetes mellitus without complication (823867430)Diabetes (E11.9)Active confirmedProblemDiabetes mellitus (79564066)Diabetes mellitus (E11.9)Active confirmedProblemBody mass index 35.00 to 39.99 (572539310437069)Body mass index [BMI] 38.0-38.9, adult (Z68.38)ActiveconfirmedProblemPolyneuropathy due to type 2 diabetes mellitus (950397657)Controlled type 2 diabetes mellitus with diabetic polyneuropathy, unspecified whether iridologist insulin use (E11.42)Active confirmedProblemChronic ulcer of right foot (disorder) (61594957643631882) Chronic ulcer of right foot with fat layer exposed (L97.512)Activeconfirmed ProblemDegeneration of lumbosacral intervertebral disc (97918477)Degenerative disc disease at L5-S1 level (M51.37)Activeconfirmed Vital Signs Blood pressure diastolic 78 mm Hg 09/07/2025 Oxkpgk50 in09/07/2025lood pressure mmieutpg665 mm Hg09/07/20257914Qtxvem688.6 lbs 09/07/2025BMI34.07 kg/m209/07/2025 Encounters Encounter Location Date Provider Diagnosis [facility] [address] [place] [address] 04/24/2025 Kareem Hoy Hypertension I10 [facility] [address] [place] [address] 10/16/2024 Kareem Hoy Cellulitis L03.90 an d Hypertension I10 [facility] [address] [place] [address] 12/13/2024 Kareem Hoy Acute otitis media, left H66.92 ; Otalgia of left ear H92.02 and Otitis externa of left ear H60.92 [facility] [address] [place] [address] 02/22/2025 Kareem Hoy Lumbar radiculopathy M54.16 ; Decreased testosterone level E29.1 ; Insomnia G47.00 ; Type 2 diabetes mellitus with foot ulcer E11.621 ; Hypertension I10 and Ankle pain M25.[address] [place] [address] 03/15/2025 Kareem Hoy Lumbar radiculopathy M54.16 ; Diabetes E11.9 ; Controlled type 2 diabetes mellitus with diabetic polyneuropathy, unspecified whether iridologist insulin use E11.42 ; Ankle pain, left 719.47 and Ankle pain, right M25.571 [facility] [address] [place] [address] 06/28/2025 Kareem Hoy Type 2 diabetes crow itus with foot ulcer E11.621 and Hypertension I10 [facility] [address] [place] [address] 09/07/2025 Kareem Hoy Cellulitis L03.90 [facility] [address] [place] [address] 09/20/2024 Kareem Hoy [facility] [place] [address] 09/20/2024Doug [facility] [place] [address]/08/2025Doug [facility] [place] [address]/Doug [facility] [place] [address]/Doug [facility] [place] [address]/Doug [facility] [place] [address]/ Kareem [facility] [place] [address]/12/2024Doug [facility] [place] [address]/03/2025Doug [facility] [place] [address]/Doug [facility] [address] [place] [address]/Doug [facility] [place] [address]/Doug Hoy Left fibular fracture S82.402[facility] [place] [address]/02/2025Doug [facility] [place] [address]/08/2025Doug [facility] [place] [address]/Doug HoyHTN (hypertension) I10 and Decreased testosterone level E29.[address] [place], [place] [address] [place] [address]/Doug [facility] [facility] [place] [address]/01/2025 K[facility]oyHypertension [facility] [facility] [place] [address]/04/2025Doug [facility] [facility] [place] [address]/Doug [facility] [facility] [place] [address]/Doug [facility] [facility] [place] [address]/ Kareem [facility] [facility] [place] [address]/Doug HoyHTN (hypertension) [facility] [facility] [place] [address]/Do Hoy Hypertension I10 Assessments Encounter Date Diagnosis (ICD Code) Assessment Notes Treatment Notes Treatment Clinical Notes Section Notes 10/16/2024 Cellulitis (ICD-10 - L03.90) 10/16/2024Hypertension (ICD-10 - I10)12/13/2024ute otitis media, left (ICD-10 - H66.92)02/22/2025Lumbar radiculopathy (ICD-10 - M54.16)02/22/2025Decreased testosterone level (ICD-10 - E29.1)04/24/2025Hypertension (ICD-10 - I10)stop the huihsjecro59/15/2025Hypertension (ICD-10 - I10)06/28/2025Type 2 diabetes mellitus with foot ulcer (ICD-10 - E11.621)06/28/2025Hypertension (ICD-10 - I10) disucssed restarting whole doxazosin since bp up sl09/07/2025ellulitis (ICD-10 - L03.90)non-unial of tibia - seeing ortho for that03/15/2025Lumbar radiculopathy (ICD-10 - M54.16)03/15/2025Diabetes (ICD-10 - E11.9)04/11/2025Left fibular fracture (ICD-10 - S82.402A)04/25/2025HTN (hypertension) (ICD-10 - I10) 05/18/2025Hypertension (ICD-10 - I10)09/07/2025HTN (hypertension) (ICD-10 - I10) 04/25/2025Decreased testosterone level (ICD-10 - E29.1)03/15/2025ontrolled type 2 diabetes mellitus with diabetic polyneuropathy, unspecified whether retirement insulin use (ICD-10 - E11.42)02/22/2025Insomnia (ICD-10 - G47.00)12/13/2024 Otalgia of left ear (ICD-10 - H92.02)12/13/2024Otitis externa of left ear (ICD- 10 - H60.92)02/22/2025Type 2 diabetes mellitus with foot ulcer (ICD-10 - E11.621)03/15/2025nkle pain, left (ICD9-CM - 719.47)03/15/2025nkle pain, right (ICD-10 - M25.571)02/22/2025Hypertension (ICD-10 - I10)02/22/2025nkle pain (ICD-10 - M25.579)12/13/2024OtherYou have been prescribed antibiotics for otitis media. Antibiotics may bother your stomach, so try taking them with a light meal (unless instructed otherwise by your pharmacist). It is important to take them until they are finished. You can use rkvu-yqz-fhbkhzd acetaminophen or ibuprofen if needed for pain. You have been prescribed antibiotics. You should be extra vigilant about hand washing or using hand titrator gel. You should follow up with your [...] PANEL (CHOL/TRIG/HDL/LDL) 06/02/20 23 CBC WITH DIFF (EXP 07/2025) 06/02/2023 CBC WITH DIFF (EXP 07/2025) 10/29/2023 CBC WITH DIFF (EXP 07/2025) 07/06/2024 PSA, PROSTATE-SPECIFIC ANTIGEN 3 XR Ankle [...] OCCULT BLOOD 06/02/2023 AMMONIA 10/29/2023 BNP 10/29/2023 INFLUENZA A AND B AG 09/12/2025 RSV 09/12/2025 TESTOSTERONE, TOTAL 04/25/2025 TESTOSTERONE, TOTAL 04/24/2025 TESTOSTERONE, TOTAL 12/06/2023 TESTOSTERONE, TOTAL 07/06/2024 US ABD 10/13/2023 XR ANKLE RT MIN 3 VIEWS 08/11/2023 XR FOOT RT MIN 3 VIEWS 10/29/2023 XR FOOT RT MIN 3 VIEWS 08/11/2023 THYROID PANEL (T4/TSH/FREE T3) 3 THYROID PANEL (T4/TSH/FREE T3) THYROID PANEL (T4/TSH/FREE T3) 4 PSA, SCREENING 08/03/2024 Lipid Panel 08/03/2024 SARS-CoV-2 Ag* 09/12/2025 CT ANKLE RIGHT WO CONTRAST 03/15/2025 Next Appt Details Provider Name:Kareem Mendez, 10:45:00 AM, [address], [place], [place], [address], Insurance Providers Payer Name Payer Address Payer Phone Subscriber Number Group Number Insured Name Patient Relationship to Insured Coverage Start Date Coverage End Date [employer] [place] [employer] [address] [address] [place] [address] [id number] Adam Garces - patient is the [id number] 2022 Medications Administered Medication Instructions Date of Administration Dosage Notes Ceftriaxone 1 gram g1 gmCeftriaxone 1 gram gKenalog-40120 mg120 Kenalog-400 mp588Ssmjlnp-5110/08/2024120 mgKetorolac Tromethamine mgKetorolac Fmcowrxydphz08/29/202360 jv09Apyyggwvj Tromethamine qe05Mbnjvnnfr Vpozknwrczan53/28/202360 kz12Mpyifvyab Tromethamine 0 mgKetorolac Ldotralpbnwn98/08/202460 mgOrphenadrine Citrate mgOrphenadrine Utohjdo67 ek47Dhzmqtamxgjw Citrate hz75Viiukvwunpxv Agxixua390 mg Medical (General) History Medical History History ICD Code HTN DECREASED TESTOSTERONE LEVELLUMBAR RADICULOPATHYHYPERSOMNIASYSTOLIC MURMUR HYPERHIDROSISDEGENERATIVE DISC DISEASELUMBAR SPONDYLOSISDIABETESCERVICALDISC DISEASECARPAL TUNNELLATERAL EPICONDYLITISCHRONIC PAINGERDINSOMNIAIMPOTENCE ANXIETYOSASurgical History Surgery Date(Month/Year) RIGHT SHOULDER TONSILLECTOMYUVULOPLASTYCERVICAL DECOMPRESSIONREVISED [id number] HEAD OF FIRST PHALANXORIF left ankle Lateral Malleolus Fx, Closed Reduction Post Malleolus Fx03/15/24Left Great Toe Pnqurzoqxc30/2025I&D right footVASECTOMY Hospitalization History Reason Date(Month/Year) cervical 2018 cervical surgery 2019 see above Foot rldjaeivo31/25Great Toe Nizvstmyhg07/2025
--- OUTSIDE RECORDS SUMMARY | 2025-09-12 14:13 | XMS_ITS | CCD ---
Author Organization [facility] Care Team Providers Care Sfdc Consultant Name Role Phone UNKNOWN, PROVIDER Admitting [...] Jaeger Primary Care Physician MIL ., DR ODNOVAN Admitting Unavailable HOY ., DR DONOVAN Attending [...] Woo Attending Unavailable CHINO Vallejo Attending Provider [phone] Venus Jaeger MD Primary Care Provider [phone] Yoni MAGANA, Trey Smith Attending Provider [phone] MARIANNA SUAREZ Referring Unavailable SUYAPA, SHIN Referring [...] [phone] Venus Jaeger MD Primary Care Provider [phone] Jameel Coats DO Attending Provider [phone] Bonnie Ernandez MD Attending Provider [phone] Trey Vallejo Attending Unavailable Trey Vallejo Admitting Unavailable Bonnie Ernandez Attending Unavailable Bonnie Ernandez Admitting Unavailable Jameel Coats Attending Unavailable Jameel Coats Admitting Unavailable Venus Jaeger Primary Care Unavailable Venus Jaeger MD Primary Care Provider [phone] RUBÉN GEIGER Attending Unavailable RUBÉN GEIGER Attending Unavailable RUBÉN GEIGER Attending Unavailable HEATHER RAINEY Attending Unavailab le Allergies Allergy ClassificationReported Allergen(s)Allergy TypeDate of OnsetReaction(s) Facility (1 source)AspartameDrug Zvmospp76-24-1669Vai [facility] Repository (1 source)avoid; Translations: [Unknown]Propensity to adverse reactions (disorder)06-99-5240Fll [facility] Repository (1 source)vitamin B12; Translations: [cyanocobalamin]Drug AllergyUnknown (qualifier value)[facility] (1 source)Acetaminophen / HYDROcodoneDrug AllergyThe [facility] (1 source)CorticosteroidsDrug allergy (disorder)[facility] Rep[facility] (1 source)fentaNYLDrug AllergyThe [facility] Rep[facility] (1 source)Misc-Food; Translations: [Misc-Food]Food allergy (disorder)[facility] Rep[facility] (20 sources)fentaNYLDrug Ulafipf75-13-2133FtgeglwCL[facility] (20 sources)HYDROcodoneDrug Vndvpeq01-96-5100AyeiipdGFJD Healthcare (20 sources)Morphine And CodeineDrug Lxuxjjy02-45-2842KoighdbHJJG Healthcare (20 sources)OtherPropensity to adverse -53-9579DCRK [facility] (1 source)CorticosteroidsDrug allergy (disorder)25-05-6145[facility] Medications Current Medications MedicationDrug Class(es)DatesSig (Normalized)Sig (Original)acetaminophen 325 mg / HYDROcodone bitartrate 5 mg oral tablet (20 sources)Opioid AgonistStart: 83-09-9262YSFIKqxprxu-acetaminophen ([place]) 5- 325 MG tablet 03/20/2024 Activeamantadine hydrochloride 100 mg oral tablet (20 sources)Influenza A M2 Protein InhibitorStart: 05-07-2025 End: 00-43-4401abzz 1 tablet by mouth in the morningamantadine (Symmetrel) 100 MG tablet Indications: Excessive daytime sleepiness , Primary insomnia TAKE 1 TABLET (100 MG) BY MOUTH IN THE MORNING AND AT NOON 60 tablet 11 05/16/2025 05/16/2026 ActiveStart: 04-10-2024 End: 82-76-5606vzng 1 tablet by mouth in the morningamantadine (Symmetrel) 100 MG tablet Indications: Excessive daytime sleepiness , Primary insomnia Take 1 tablet (100 mg) by mouth in the morning and at noon 180 tablet 3 04/10/2024 04/10/2025 Activeaspirin 81 mg delayed release oral tablet (20 sources)Platelet Aggregation Inhibitor, Nonsteroidal Anti-inflammatory Drug Start: 91-45-1947neuj 1 tablet by mouth once dailyASPIRIN 81 MG chewable tablet Chew 81 mg in the morning. ActiveB-D 3CC LUER-SAYRA SYR 23GX1 23G X 1 3 ML misc (20 sources)Start: 32-50-2295D-D 3CC LUER-SAYRA SYR 23GX1 23G X 1 3 ML misc USE 1 SYRINGE INTRAMUSCULARLY ONCE A WEEK 05/18/2023ctiveBiotin (20 sources)Start: 76-79-4862OYLHZK BIOTIN Start Date: 02/26/22 Status: Ordered Start: 92-73-5584lnbp 1 tablet by mouth once dailycelecoxib 100 mg oral capsule (20 sources)Nonsteroidal Anti-inflammatory DrugCeleBREX 100 MG capsule 1 (one) time each day at the same time Activecholecalciferol 0.125 mg oral capsule (20 sources)Vitamin DStart: 91-85-1785goznljudtutiipb (Vitamin D-3) 125 MCG (5000 UT) capsule 03/15/2024 ActiveclonazePAM 1 mg oral tablet (20 sources)BenzodiazepineStart: 03-27-2024 End: 48-50-0901mytm 1 tablet by mouth at bedtimeclonazePAM (KlonoPIN) 1 MG tablet Indications: Primary insomnia Take 1 tablet (1 mg) by mouth at bedtime 30 tablet 2 07/04/2024 ActiveStart: 55-87-7018ZqonetrJGC 0.5 mg Tab Refills(s) 0 Start Date: 02/26/22 Status: OrderedStart: 40-93-9287qnqg 2 tablets by mouth at bedtimeStart: 71-23-8431dnxi 1 mg by mouth at bedtimeClonazepam Active 0.05 mg/kg PO Bedtime May 14, 2018 12:00amdiazePAM 5 mg oral tablet (5 sources)BenzodiazepineStart: 82-31-0002aipc 1 tablet by mouth at bedtime diclofenac sodium 75 mg delayed release oral tablet (5 sources)Nonsteroidal Anti-inflammatory DrugStart: 77-13-1723xngl 1 tablet by mouth twice dailydoxazosin 8 mg oral tablet (20 sources)alpha-Adrenergic BlockerStart: 95-19-7156jzjsrhjcv 8 mg oral tablet Refills(s) 0 Start Date: 02/26/22 Status: Ordereddoxepin hydrochloride 10 mg oral capsule (20 sources)Tricyclic AntidepressantStart: 72-33-0822byfmvgp 10 mg Cap Refills(s) 0 Start Date: [...] 600 mg oral tablet (20 sources)Anti-epileptic AgentStart: 75-72-9451ipyn 1 tablet by mouth three times dailyglycopyrrolate 1 mg oral tablet (20 sources)Start: 84-80-0436ufgk 1 tablet by mouth in the morningglycopyrrolate (Robinul) 1 MG tablet Take 1 mg by mouth in the morning and 1 mg before bedtime. 01/22/2023 ActiveStart: 37-31-8537elyeuhqepzttie 1 mg oral tablet Refills(s) 0 Start Date: 02/26/22 Status: OrderedhydrOXYzine pamoate 25 mg oral capsule (20 sources)AntihistamineStart: 00-25-3681pody 1 capsule by mouth once daily at bedtimehydrOXYzine pamoate (Vistaril) 25 MG capsule Indications: Primary insomnia TAKE ONE CAPSULE BY MOUTH ONCE DAILY AT BEDTIME 30 capsule 11 05/11/2024 Activelisinopril 10 mg oral tablet (5 sources)Angiotensin Converting Enzyme InhibitorStart: 82-68-8183vreo 1 tablet by mouth once dailymeclizine hydrochloride 25 mg chewable tablet (20 sources)AntiemeticMeclizine HCl 25 MG chewable tablet Chew 25 mg 1 (one) time each day at the same time. Activemelatonin 10 mg oral capsule (20 sources)Start: 07-14-2023 End: 28-65-3955tjeu 1 capsule by mouth at bedtimeMelatonin 10 MG capsule Indications: Primary insomnia Take 10 mg by mouth at bedtime 90 capsule 3 07/04/2025 ActiveMultiple Vitamins-Minerals (Multi For Him 50+) tablet (20 sources)Multiple Vitamins-Minerals (Multi For Him 50+) tablet as directed Orally Activeomeprazole 40 mg delayed release oral capsule (5 sources)Proton Pump InhibitorStart: 30-00-1093rtli 1 capsule by mouth twice dailyondansetron 4 mg oral tablet (20 sources)Serotonin-3 Receptor AntagonistStart: 11-14-2024 End: 50-68-0394dlak 2 tablets by mouth every eight hours for nauseaondansetron (Zofran) 4 MG tablet Indications: Projectile vomiting with nausea Take 2 tablets (8 mg)by mouth every 8 (eight) hours if needed for nausea or vomiting 30 tablet 3 11/14/2024 12/14/2024 ActiveStart: 99-49-1494xkbnllapmld ODT (Zofran-ODT) 4 MG disintegrating tablet 03/15/2024 ActiveStart: 96-35-2663yegsznrncgu (Zofran) 4 MG tablet Take 4 mg by mouth if needed. ActiveOXcarbazepine 300 mg oral tablet (20 sources)Anti-epileptic Agenttake 1 tablet by mouth at bedtimeOXcarbazepine (Trileptal) 300 MG tablet Take 300 mg by mouth at bedtime. Activeoxybates, calcium, magnesium, potassium and sodium, (Xywav) 500 MG/ML solution (2 sources)Start: 04-04-2025 End: 33-47-1447tyhr 3.75 g by mouth at bedtimeoxybates, calcium, magnesium, potassium and sodium, (Xywav) 500 MG/ML solution Indications: Narcolepsy cataplexy syndrome (HCC) Take 3.75 g by mouth at bedtime 225 mL 2 04/04/2025 05/04/2025 Activepotassium chloride 10 meq extended release oral tablet (20 sources)Start: 11-53-9361irdp 1 tablet by mouth at mealtimepotassium chloride CR (Klor-Con) 10 MEQ ER tablet Take 10 mEq by mouth in the morning. Take with food. . 02/22/2023 Activesennosides, alf 8.6 mg oral tablet (20 sources)Start: 02-05-5472srtwo (Senokot) 8.6 MG tablet 03/15/2024 Active simvastatin 20 mg oral tablet (20 sources)HMG-CoA Reductase InhibitorStart: 54-36-7824lfil 1 tablet by mouth once dailySUMAtriptan 100 mg oral tablet (20 sources)Serotonin-1b and Serotonin-1d Receptor AgonistStart: 38-14-4219uqpr 1 tablet by mouth onceSUMAtriptan (Imitrex) 100 MG tablet Take 100 mg by mouth 1 (one) time if needed. Active1 ml testosterone cypionate 200 mg/ml injection (20 sources)Androgentestosterone cypionate (Depo-Testosterone) 200 MG/ML injection Inject 200 mg into the shoulder, thigh, or buttocks every 14 (fourteen) days. Activethiamine 100 mg oral tablet (15 sources)Start: 07-05-2024 End: 90-94-8353likb 1 tablet by mouth once dailythiamine (Vitamin B-1) 100 MG tablet Indications: Excessive daytime sleepiness Take 1 tablet (100 mg) by mouth Daily 30 tablet 11 07/05/2024 07/05/2025 ActivetiZANidine 4 mg oral capsule (20 sources)Central alpha-2 Adrenergic AgonistStart: 42-76-5897owfe 1 capsule by mouth at bedtimetake 1 tablet by mouth at bedtimetiZANidine (Zanaflex) 4 MG tablet Take 4 mg by mouth at bedtime. ActiveVit D3-Folic Kyrm-W6-I5-B12 (1 source)Start: 77-37-5148gvdy 1 tablet by mouth once dailyVit D3-Folic Bzry-T4-E8-B12 Active 1 TAB PO Daily May 14, 2018 12:00amVit D3-Folic Nbqf-L4-A7-B12 2,000-800-0.32 unit-mcg-mg Tablet (4 sources)Start: 55-61-8374tncw 1 tablet by mouth once dailyStart: 05-14-2018 take 1 tablet by mouth once dailyVit D3-Folic Iapm-F2-C1-B12 2,000-800-0.32 unit-mcg-mg Tablet Active 1 TAB PO Daily May 13, 2018 11:00pm Completed/Discontinued Medications MedicationDrug Class(es)DatesSig (Normalized)Sig (Original)apixaban 5 mg oral tablet (3 sources)Factor Xa InhibitorStart: 28-25-9842Ruflmgdg (Eliquis) 5 mg tablet Discontinued MG PO May 07, 2025 12:00amcarvedilol 25 mg oral tablet (20 sources)alpha-Adrenergic Jorge L, beta-Adrenergic BlockerStart: 02-26-2022 Carvedilol 25 mg tablet Discontinued MG PO May 07, 2025 12:00amStart: 90-92-4003phpv 1 tablet by mouth twice dailycitalopram 40 mg oral tablet (20 sources)Serotonin Reuptake InhibitorStart: 63-28-6081Nutolezpad 40 mg tablet Discontinued MG PO May 07, 2025 12:00amStart: 82-65-8958WlmgOB 20 MG tablet 1 (one) time each day at the same time. 06/02/2023 Activefurosemide 20 mg oral tablet (20 sources)Loop DiureticStart: 00-98-5724Rfbucmjiza 20 mg tablet Discontinued MG PO May 07, 2025 12:00ammodafinil 200 mg oral tablet (20 sources)Sympathomimetic-like AgentStart: 05-07-2025 End: 15-97-9466eikb 1 tablet by mouth in the morningmodafinil (Provigil) 200 MG tablet Indications: Excessive daytime sleepiness , Obstructive sleep apnea TAKE 1 TABLET (200 MG) BY MOUTH IN THE MORNING AND AT NOON 60 tablet 2 05/16/2025 07/13/2025 Discontinued (Reorder)Start: 04-10-2024 End: 72-13-1723qwly 1 tablet by mouth in the morningmodafinil (Provigil) 200 MG tablet Indications: Excessive daytime sleepiness , Obstructive sleep apnea Take 1 tablet (200 mg) by mouth in the morning and at noon 180 tablet 01/03/2025 ActiveStart: 04-01-7929egahpilyq 200 mg Tab Refills(s) 0 Start Date: 02/26/22 Status: Orderedpantoprazole 40 mg delayed release oral tablet (20 sources)Proton Pump InhibitorStart: 82-46-6575Qilvaziacsjk 40 mg tablet,delayed release (DR/EC) Discontinued MG PO May 07, 2025 12:00am Problems Active Problems Problem ClassificationProblemDateDocumented DateEpisodic/ChronicAnxiety disorders (20 sources)Anxiety disorder, unspecified; Translations: [Anxiety disorder] Onset: 785705-70-8475VkzwjofTxlzdepcx and vision defects (1 source)Unspecified visual loss; Translations: [UNSPECIFIED VISUAL LOSS]Onset: 78-03-5237QqnwfqgXzmxxwpmgh heart failure; nonhypertensive (20 sources)Chronic combined systolic and diastolic heart failure; Translations: [Chronic combined systolic (congestive) and diastolic (congestive) heart failure]Onset: 122681-03-8633EpfkxrcHmxxzghq, dementia, and amnestic and other cognitive disorders (20 sources)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; Translations: [Unspecified mental disorder due to known physiological condition]Onset: 595905-01-0227KlsbfqlDodexlwd mellitus without complication (20 sources)Type 2 diabetes mellitus without complications; Translations: [Diabetes mellitus without complication]Onset: hronic Disorders of lipid metabolism (1 source)Pure hypercholesterolemia, unspecified; Translations: [PURE HYPERCHOLESTEROLEMIA UNSPEC]Onset: 25-61-3395QfcfwvuU Codes: Place of occurrence (2 sources)Unspecified place in unspecified non-institutional (private) residence as the place of occurrence of the external cause; Translations: [Unspecified place in unspecified non-institutional (private) residence as the place of occurrence of the external cause]Onset: 49-47-3442VspobzvoInkvscdeva disorders (1 source)Gastro-esophageal reflux disease without esophagitis; Translations: [GERD WITHOUT ESOPHAGITIS]Onset: 15-12-4025XziplzdAsacymdcm hypertension (20 sources)Essential (primary) hypertension; Translations: [Hypertensive disorder]Onset: 667449-61-3722MyhvbcmFpjfsxkv; including migraine (20 sources)Migraine; Translations: [Migraine, unspecified, not intractable, without status migrainosus]Onset: 086956-49-1518QhxgaikQqiaypszcpr of prostate (1 source)Benign prostatic hypertrophy without outflow obstruction; Translations: [Benign prostatic hyperplasia without lower urinary tract symptoms]Onset: 53-99-8832PufbuuaOpcrqfyjdpqd with complications and secondary hypertension (15 sources)Hypertensive heart failure; Translations: [Hypertensive heart disease with heart failure]Onset: 147794-65-8549XvjzzqaRqylscuxiewqo mental health disorders (20 sources)Primary insomnia; Translations: [Primary insomnia]Onset: 03-11-2023 56-17-4828TunhihqPmyy disorders (1 source)Major depressive disorder, single episode, unspecified; Translations: [MARITZA DEPRESS D/O SINGLE EPIS UNS]Onset: 71-85-2582CbzwcdzEzqf disorders (1 source)Mood disorders; Translations: [DEPRESSION UNSPECIFIED]Onset: 05-24-4674Evusox and vomiting (1 source)Projectile vomiting; Translations: [Projectile vomiting]11-14-2024 EpisodicOsteoarthritis (20 sources)Unspecified osteoarthritis, unspecified site; Translations: [Arthritis of right acromioclavicular joint]Onset: hronic Other aftercare (1 source)penitentiary (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; 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]Onset: 64-15-1020HkrntcesEyzoo aftercare (1 source)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; Translations: [OTH BAKED GOODS STOCK CLERK CURRENT DRUG THERAPY]Onset: 61-99-0377MwlxaoxdXwjbw bone disease and musculoskeletal deformities (3 sources)Hypertrophy of bone; Translations: [Hypertrophy of bone, unspecified tibia and fibula]16-99-9923GqmevnpoFsxpw bone disease and musculoskeletal deformities (1 source)Hypertrophy of bone, unspecified tibia and fibula; Translations: [Hypertrophy of bone, unspecified tibia and fibula]Onset: 37-78-2788Vsqhoswc Other connective tissue disease (3 sources)Pain in right forearm; Translations: [PAIN IN RIGHT FOREARM]Onset: 04-35-0386MzbpyollCesfs connective tissue disease (1 source)Arthrodesis status; Translations: [ARTHRODESIS STATUS]Onset: 88-50-4572PptubeotGfnbh connective tissue disease (2 sources)Muscle weakness of upper limb; Translations: [Other symptoms and signs involving the musculoskeletal system]90-66-8320EfutptlaMwhekmk on above: Problem List clean-up per request of Phys. EHR CmteOther connective tissue disease (3 sources)Pain in right lower limb; Translations: [Pain in right leg]05-07-2025 EpisodicOther diseases of veins and lymphatics (1 source)Varicocele; Translations: [Scrotal varices]Onset: 31-50-2456Zulhjnmd Other ear and sense organ disorders (1 source)Unspecified hearing loss, unspecified ear; Translations: [UNS HEARING LOSS UNSPECIFIED EAR]Onset: 89-57-2979WbgjkksZrqsx endocrine disorders (4 sources)Testicular hypofunction; Translations: [TESTICULAR HYPOFUNCTION] Onset: 25-41-9867TunxliqDlagj inflammatory condition of skin (1 source)Psoriasis, unspecified; Translations: [PSORIASIS UNSPECIFIED]Onset: 19-25-5028SrugancRazpd injuries and conditions due to external causes (1 source)Unspecified injury of head, initial encounter; Translations: [UNSPECIFIED INJURY HEAD INITIAL ENC]Onset: 76-37-7639PmemaohqPsgen male genital disorders (20 sources)Secondary erectile dysfunction; Translations: [Male erectile dysfunction, unspecified]Onset: 941948-41-9866PnukpbiNxvis male genital disorders (1 source)Hydrocele of testis; Translations: [Hydrocele, unspecified]Onset: 88-28-1614BnrfasgqBicki nervous system disorders (1 source)Narcolepsy without cataplexy; Translations: [NARCOLEPSY WITHOUT CATAPLEXY]Onset: 43-19-5403VcctcznTgmkr nervous system disorders (1 source)Other chronic pain; Translations: [OTHER CHRONIC PAIN]Onset: 48-56-8719WegirqgLkyjw nervous system disorders (1 source)Polyneuropathy, unspecified; Translations: [POLYNEUROPATHY UNSPECIFIED]Onset: 77-77-2651LfszvucRgqej nervous system disorders (20 sources)Carpal tunnel syndrome of right wrist; Translations: [Carpal tunnel syndrome, right upper limb]Onset: 420119-01-9077DlylnjvCiojm nervous system disorders (20 sources)Lesion of ulnar nerve, right upper limb; Translations: [Lesion of ulnar nerve]Onset: 237392-95-0881FboectkKcpki nervous system disorders (20 sources)Chronic pain; Translations: [Other chronic pain]Onset: 12-30-2017 84-96-4106XgrfemqIquru nervous system disorders (20 sources)Ulnar nerve entrapment; Translations: [Lesion of ulnar nerve, unspecified upper limb]Onset: 288443-92-8858ZfjvvcdKxjun nervous system disorders (20 sources)Cataplexy and narcolepsy; Translations: [Narcolepsy with cataplexy] Onset: 259711-53-5119XadlwbsRpvcz nutritional; endocrine; and metabolic disorders (15 sources)Obesity; Translations: [Obesity, unspecified]Onset: 09-24-2024 45-11-2645KxdvnrpRtlm-; endo-; and myocarditis; cardiomyopathy (except that caused by tuberculosis or sexually transmitted disease) (15 sources)Cardiomyopathy; Translations: [Other cardiomyopathies]Onset: 244186-85-8183CopuotwCxsmtmgb codes; unclassified (1 source)Sleep apnea, unspecified; Translations: [SLEEP APNEA UNSPECIFIED] Onset: 83-02-5718DolfzakGkcbghxn codes; unclassified (20 sources)Daytime somnolence; Translations: [Other hypersomnia]Onset: 158042-79-6131VppjvbbEtqpdgqk codes; unclassified (20 sources)Obstructive sleep apnea syndrome; Translations: [Obstructive sleep apnea (adult) (pediatric)]Onset: 777090-42-0864JrbjwkmAmdflknl codes; unclassified (2 sources)Obstructive sleep apnea (adult) (pediatric); Translations: [Obstructive sleep apnea (adult) (pediatric)]Onset: 42-64-8302CazrayfRhmkxszg codes; unclassified (5 sources)Other hypersomnia; Translations: [Hypersomnia, unspecified]Onset: 392704-55-7746PncwacdTosfocchxlo; intervertebral disc disorders; other back problems (20 sources)Cervical disc disorder; Translations: [Cervical disc disorder, unspecified, unspecified cervical region]Onset: hronic Superficial injury; contusion (2 sources)Contusion of right forearm, initial encounter; Translations: [Contusion of other part of head, initial encounter]Onset: 57-54-5925Zdtgvxox Unclassified (1 source)CONTACT W/AND (SUSP) EXPOS COVID-19; Translations: [CONTACT W/AND (SUSP) EXPOS COVID-19]Onset: 01-19-2022 Past or Other Problems Problem ClassificationProblemDateDocumented DateEpisodic/ChronicComa; stupor; and brain damage (20 sources)Clouded consciousness; Translations: [Stupor]Onset: 03-03-2012 04-24-7369BfbkypmbS Codes: Fall (18 sources)Unspecified fall, initial encounter; Translations: [Fall in home] Onset: 58-49-9323EgktloljY Codes: Natural/environment (1 source)Exposure to other specified factors, initial encounter; Translations: [EXPOSURE OTHER SPEC FACTORS INITIAL]Onset: 19-99-0297RyppmhswLcofrlaf of lower limb (20 sources)Unspecified fracture of shaft of right tibia, initial encounter for closed fracture; Translations: [Unspecified fracture of shaft of right fibula, initial encounter for closed fracture]Onset: 22-78-2780YlkraxcbFshafefmg and duodenitis (20 sources)Gastritis; Translations: [Gastritis, unspecified, without bleeding] Onset: 269279-83-0048TljncgfvKbmdq valve disorders (20 sources)Systolic murmur; Translations: [Cardiac murmur, unspecified]Onset: 835549-56-9731HjwwamvoSrfumemexkqlf and screening for infectious disease (1 source)Encounter for immunization; Translations: [ENCOUNTER FOR IMMUNIZATION] Onset: 96-01-8451OudomvbxJaoxjtoolpvw conditions of male genital organs (4 sources)Inflammatory disorders of scrotum; Translations: [INFLAMMATORY DISORDERS OF SCROTUM]Onset: 57-88-3220OjmdbvtiOulaarl and fatigue (20 sources)Fatigue; Translations: [Other fatigue]Onset: EpisodicNoninfectious gastroenteritis (20 sources)Gastroenteritis; Translations: [Noninfective gastroenteritis and colitis, unspecified]Onset: 912056-67-7055MmagajedBycsgjjeucf chest pain (20 sources)Chest discomfort; Translations: [Other chest pain]Onset: 11-30-2011 46-76-4348PyfwzeaaLhqo wounds of extremities (19 sources)Puncture wound without foreign body, left foot, initial encounter; Translations: [Open wound of left great toe]Onset: 37-91-8062NqhlijgdSspeb circulatory disease (20 sources)Capillary hemangioma; Translations: [Nevus, non-neoplastic]Onset: 419996-18-0049NfwzgxblHoomq connective tissue disease (20 sources)Spasm of cervical paraspinous muscle; Translations: [Other muscle spasm]Onset: 066956-21-9646YlenugxyJpcmv connective tissue disease (20 sources)Bursitis; Translations: [Bursopathy, unspecified]Onset: 02-27-2011 49-89-7269JrfdbhplCahwv connective tissue disease (20 sources)Foot pain; Translations: [Pain in unspecified foot]Onset: 10-07-2012 29-62-4519XatqpaufRfcmg connective tissue disease (20 sources)Muscle pain; Translations: [Myalgia, unspecified site]Onset: 997012-63-7350KdaeswsxUrrtr connective tissue disease (20 sources)Impingement syndrome of shoulder region; Translations: [Impingement syndrome of unspecified shoulder]Onset: 697493-04-2649DxuuvfevWfjpp connective tissue disease (20 sources)Lateral epicondylitis; Translations: [Lateral epicondylitis, unspecified elbow]Onset: 481798-29-4110KnuyjntvHawky connective tissue disease (20 sources)Other symptoms and signs involving the musculoskeletal system; Translations: [Other musculoskeletalsymptoms referable to limbs]Onset: 672747-14-4273YalwaqhtQnknxgi on above:Problem List clean-up per request of Phys. EHR CmteOther lower respiratory disease (20 sources)Dyspnea; Translations: [Dyspnea, unspecified]Onset: 11-30-2011 11-58-8119JlawbqrqTxsme nervous system disorders (20 sources)Numbness of upper limb; Translations: [Anesthesia of skin]Onset: 199315-18-9974LfsjgffoVxowlwe on above:Problem List clean-up per request of Phys. EHR CmteOther non-traumatic joint disorders (20 sources)Ankle edema; Translations: [Effusion, unspecified ankle]Onset: 355412-93-1441EalxkcbiFoadf non-traumatic joint disorders (20 sources)Joint pain; Translations: [Pain in unspecified joint]Onset: 384227-09-5150NcioigvfUrxhn screening for suspected conditions (not mental disorders or infectious disease) (20 sources)Encounter for screening for malignant neoplasm of prostate; Translations: [Elevated prostate specific antigen [PSA]]Onset: 03-13-2022 EpisodicOther skin disorders (20 sources)Excessive sweating; Translations: [Generalized hyperhidrosis]Onset: 288888-59-3376QifevzxqRuusx skin disorders (20 sources)Senile hyperkeratosis; Translations: [Actinic keratosis]Onset: 285871-44-7825LwdonifnOhvlj skin disorders (20 sources)Hyperhidrosis; Translations: [Generalized hyperhidrosis]Onset: 361122-09-0847TbcucrznLqgkh upper respiratory infections (20 sources)Upper respiratory infection; Translations: [Acute upper respiratory infection, unspecified]Onset: 150406-65-5624VqxxuftoKsig and subcutaneous tissue infections (20 sources)Cellulitis; Translations: [Cellulitis, unspecified]Onset: 03-31-2013 53-04-7878LraolmgoMcshfgcdchn; intervertebral disc disorders; other back problems (20 sources)Cervical disc prolapse with radiculopathy; Translations: [Cervical disc disorder with radiculopathy, unspecified cervical region]Onset: 10-11-2018 49-07-0733MnhkjammYguxafz on above:Problem List clean-up per request of Phys. EHR CmteUrinary tract infections (20 sources)Urinary tract infectious disease; Translations: [Urinary tract infection, site not specified]Onset: [id number] Results Test NameValueInterpretationReference RangeFacilityCT lower leg RT wo pool 40-27-3488XI lower leg RT wo [facility] [place] [address] CT Scan Report Signed Patient: Matty Garces MR#: [id number] : 1970 Acct:[id number] Age/Sex: 54 / M ADM Date: 05/29/25 Loc: CT Room: Type: [facility] CLI Attending Dr: Jameel Coats DO [...] Irving M.D. 05/29/2025 11:40 PM Dictation Location: [place] [address] Transcribed By: [facility] 05/29/25 2340 Dictated By: Francis Irving II, MD 05/29/25 9067 Signed By: 05/29/25 2340[facility] Phys[facility] GroupECG 12-LEADon 29-84-08[place], [place] [address] Electrocardiograph Report Signed Patient: MATTY GARCES MR#: [id number] : 1970 Acct:[id number] Age/Sex: 54 / M ADM Date: 03/05/25 Loc: [place] 221-[address]: Venus Jaeger M.D. 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 Measurements Intervals [place] Rate: 76 P: 60 [place]: 178 QRS: 69 QRSD: 100 T: 46 QT: 406 QTc: 437 Interpretive Statements 1100 Sinus rhythm 0102 ARTIFACT PRESENT 9110 normal ECG Compared to ECG 09/23/2024 05:51:07 No significant changes Electronically Signed On 03-06-2025 9:29:34 EDT by RAMIRO WALLS M.D. Dictated By: RAMIRO WALLS Signed By: 03/06/2529 DD/ 06 TD/TT: [employer]:TBHRadiology, Radiologist, - 03/06/[address] [address] Electrocardiograph Report Signed Patient: MATTY GARCES MR#: [id number] : 1970 Acct:[id number] Age/Sex: 54 / M ADM Date: 03/05/25 Loc: [place] 221-[address]: Venus Jaeger M.D. 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 Measurements Intervals [place] Rate: 76 P: 60 [place]: 178 QRS: 69 QRSD: 100 T: 46 QT: 406 QTc: 437 Interpretive Statements 1100 Sinus rhythm 0102 ARTIFACT PRESENT 9110 normal ECG Compared to ECG 09/23/2024 05:51:07 No significant changes Electronically Signed On 03-06-2025 9:29:34 EDT by RAMIRO WALLS M.D. Dictated By: RAMIRO WALLS Signed By: 03/06/25928 DD/ 06 TD/TT: [employer]: JEWELS Packer 12-LEADOrdered By: Radiologist Radiology on 46-16-6171[facility] Work Phone: ECG 12-LEADon 75-98-2736Qtehlnkda Study observation (narrative)JEWELS LandryBASIC METABOLIC PANELon 18-75-2715Xlgnd gap [Moles/Vol]8 mmol/LNormal7-20UnMcCullough-Hyde Memorial HospitalComment on above:Performed By: #### [id number] #### [facility] ([facility]) [address] [place], [place] [address]Qbmziqz [Mass/Vol]9.7 mg/dLNormal8.6-10.3UnMcCullough-Hyde Memorial HospitalComment on above:Performed By: #### [id number] #### [facility] ([facility]) [address] [place], [place] [address]Lbyxyjzq [Moles/Vol]97 mmol/DTst85-839FzyqmoxxulMcCullough-Hyde Memorial HospitalComment on above:Performed By: #### [id number] #### [facility] ([facility]) [address] [place] [address]NT8 [Moles/Vol]35 mmol/BZdet12-67EezhdwnclsMcCullough-Hyde Memorial HospitalComment on above:Performed By: #### [id number] #### [facility] ([facility]) [address] [place] [address]Rnxobovsqp [Mass/Vol]1.02 mg/dLNormal0.70-1.30UnMcCullough-Hyde Memorial HospitalComment on above:Performed By: #### [id number] #### [facility] ([facility]) [address] [place] [address]SIOIWNXEDS FILTRATION RATE ML/MIN/1.73 SQ M.QNGEUNWLJ54.8 mL/min/1.73m*2Normal>60.0UnMcCullough-Hyde Memorial HospitalComment on above: Result Comment: The [facility]???s estimated glomerular filtration rate (eGFR) [...] affect anyone group of individuals.Performed By: #### [id number] #### [facility] ([facility]) [address] [place] [address]Ofystba [Mass/Vol]80 mg/eRSwfquo55-222OirvzkavvxMcCullough-Hyde Memorial HospitalComment on above:Performed By: #### [id number] #### [facility] ([facility]) [address] [place] [address]Gzsbfkyzf [Moles/Vol]4.2 mmol/LNormal3.5-5.1UnMcCullough-Hyde Memorial HospitalComment on above:Performed By: #### [id number] #### [facility] ([facility]) [address] [place] [address]Srxvkx [Moles/Vol]136 mmol/ZXnbetf549-308CjfbhyqestMcCullough-Hyde Memorial HospitalComment on above:Performed By: #### [id number] #### [facility] ([facility]) [address] [place] [address]Vvvk nitrogen [Mass/Vol]8 mg/dLNormal7-25UnMcCullough-Hyde Memorial HospitalComment on above:Performed By: #### [id number] #### [facility] ([facility]) [address] [place], [place] [address]WEGB NITROGEN/CREATININE (MASS RATIO) IN SER/PLAS7.8Normal [facility] Medical CenterComment on above:Performed By: #### [id number] #### [facility] ([facility]) [address] [place], [place] [address]GSS WITH AUTO DIFFERENTIALon 15-80-4248Mbbgwovnz (Bld) [#/Vol] 0.06 10*3/uLNormal0.00-0.20UnMcCullough-Hyde Memorial HospitalComment on above: Performed By: #### [id number] ####[facility] ([facility])[address] [place] [place], [place] [address]Mfzipcruj/100 WBC (Bld)0.9 %Normal0.0-1.0UnMcCullough-Hyde Memorial HospitalComment on above:Performed By: #### [id number] ####[facility] ([facility])[address] [place], [place] [address]Msdultgqasz (Bld) [#/Vol]0.21 10*3/uL Normal0.00-0.50UnMcCullough-Hyde Memorial HospitalComment on above:Performed By: #### [id number] ####[facility] ([facility])[address] [place] [address] Eosinophils/100 WBC (Bld)3.0 %Normal0.0-6.0UnMcCullough-Hyde Memorial Hospital Comment on above:Performed By: #### [id number] ####[facility] ([facility])[address] [place], [place] [address]Lvuaslyvuqn distribution width (RBC) [Ratio]16.7 % High11.5-15.0UnMcCullough-Hyde Memorial HospitalComment on above:Performed By: #### [id number] ####[facility] ([facility])[address] [place] [address] ERYTHROCYTE MEAN CORPUSCULAR HEMOGLOBIN CONCENTRATION (G/DL) BY UGJDENBMZ40.9 g/dLLow32.0-35.0UnMcCullough-Hyde Memorial HospitalComment on above:Performed By: #### [id number] ####[facility] ([facility])[address] [place], [place] [address]Dxpscagjog (Bld) [Volume fraction]44.5 %Fohvhs62.0-55.0UnMcCullough-Hyde Memorial HospitalComment on above:Performed By: #### [id number] ####[facility] ([facility])[address] [place], [place] [address]Eyhsjdtvnz (Bld) [Mass/Vol]13.3 g/dL Liikuf81.0-17.0UnMcCullough-Hyde Memorial HospitalComment on above:Performed By: #### [id number] ####[facility] ([facility])[address] [place] [address] Immature granulocytes (Bld) [#/Vol]0.11 10*3/uLNormal0.00-0.20UnMcCullough-Hyde Memorial HospitalComment on above:Performed By: #### [id number] ####[facility] ([facility])[address] [place], [place] [address]Uvjsbtxz granulocytes/100 WBC (Bld)1.6 %High0.0-1.0UnMcCullough-Hyde Memorial HospitalComment on above: Performed By: #### [id number] ####[facility] ([facility])[address] [place], [place] [address]Pemutqjgbwq (Bld) [#/Vol]0.91 10*3/uLLow1.20-4.00UnMcCullough-Hyde Memorial HospitalComment on above:Performed By: #### [id number] ####[facility] ([facility])[address] [place], [place] [address]Elsubphymgb/100 WBC (Bld) 12.9 %Low20.0-45.0UnMcCullough-Hyde Memorial HospitalComment on above:Performed By: #### [id number] ####[facility] ([facility])[address] [place], [place] [address]SEL (RBC) [Entitic mass]26.9 pgLow27.0-33.0UnMcCullough-Hyde Memorial HospitalComment on above:Performed By: #### [id number] ####[facility] ([facility])[address] [place], [place] [address]LUT (RBC) [Entitic vol]89.9 fLNormal 82.0-98.0UnMcCullough-Hyde Memorial HospitalComment on above:Performed By: #### [id number] ####[facility] ([facility])[address] [place] [address] Monocytes (Bld) [#/Vol]0.65 10*3/uLNormal0.10-1.00UnMcCullough-Hyde Memorial HospitalComment on above:Performed By: #### [id number] ####[facility] ([facility])[address] [place], [place] [address]Rawzegtqx/100 WBC (Bld)9.2 %Normal 5.0-12.0UnMcCullough-Hyde Memorial HospitalComment on above:Performed By: #### [id number] ####[facility] ([facility])[address] [place] [address] Neutrophils (Bld) [#/Vol]5.11 10*3/uLNormal1.60-7.60UnMcCullough-Hyde Memorial HospitalComment on above:Performed By: #### [id number] ####[facility] ([facility])[address] [place], [place] [address]Vyarpoxomqo/100 WBC (Bld)72.4 %High 40.0-72.0UnMcCullough-Hyde Memorial HospitalComment on above:Performed By: #### [id number] ####[facility] ([facility])[address] [place] [address]STQY (PER 100 WBCS) BY AUTOMATED COUNT0.0 %Btrlnt2UrugcggnudMcCullough-Hyde Memorial Hospital Comment on above:Performed By: #### [id number] ####[facility] ([facility])[address] [place] [address]XGAJRUPXE (10*3/UL) IN BLOOD AUTOMATED [id number] 10*3/jALqgrno042-303IcynlycjbrMcCullough-Hyde Memorial HospitalComment on above: Performed By: #### [id number] ####[facility] ([facility])[address] [place], [place] [address]ZRH (Bld) [#/Vol]4.95 10*6/uLNormal4.20-5.70UnMcCullough-Hyde Memorial HospitalComment on above:Performed By: #### [id number] ####[facility] ([facility])[address] [place] [address]EBU (Bld) [#/Vol]7.05 10*3/uLNormal4.00-10.60UnMcCullough-Hyde Memorial HospitalComment on above: Performed By: #### [id number] ####[facility] ([facility])[address] [place], [place] [address]GERDP METABOLIC PANELon 76-67-5381Rbilm gap [Moles/Vol]9 mmol/LNormal7-20UnMcCullough-Hyde Memorial HospitalComment on above:Performed By: #### [id number] #### [facility] ([facility]) [address] [place], [place] [address]Zgigwsr [Mass/Vol]9.5 mg/dLNormal8.6-10.3UnMcCullough-Hyde Memorial HospitalComment on above:Performed By: #### [id number] #### [facility] ([facility]) [address] [place], [place] [address]Beoxudsh [Moles/Vol]96 mmol/RRob69-198ZjhovwwlooMcCullough-Hyde Memorial HospitalComment on above:Performed By: #### [id number] #### [facility] ([facility]) [address] [place] [address]RW8 [Moles/Vol]34 mmol/XTpke17-06NqhalvjvenMcCullough-Hyde Memorial HospitalComment on above:Performed By: #### [id number] #### [facility] ([facility]) [address] [place] [address]Hxuiwsivmh [Mass/Vol]0.93 mg/dLNormal0.70-1.30UnMcCullough-Hyde Memorial HospitalComment on above:Performed By: #### [id number] #### [facility] ([facility]) [address] [place] [address]RUBOYUMALO FILTRATION RATE ML/MIN/1.73 SQ M.UAHRGVYZT31.0 mL/min/1.73m*2Normal>60.0UnMcCullough-Hyde Memorial HospitalComment on above: Result Comment: The [facility]???s estimated glomerular filtration rate (eGFR) [...] affect anyone group of individuals.Performed By: #### [id number] #### [facility] ([facility]) [address] [place] [address]Uuozheb [Mass/Vol]85 mg/pIOkpyaz90-906YiemrooeyhMcCullough-Hyde Memorial HospitalComment on above:Performed By: #### [id number] #### [facility] ([facility]) [address] [place] [address]Ymwsoxofw [Moles/Vol]4.0 mmol/LNormal3.5-5.1UnMcCullough-Hyde Memorial HospitalComment on above:Performed By: #### [id number] #### [facility] ([facility]) [address] [place] [address]Ccwljh [Moles/Vol]135 mmol/NHyk095-892ScuyjcahriMcCullough-Hyde Memorial HospitalComment on above:Performed By: #### [id number] #### [facility] ([facility]) [address] [place], [place] [address]Qgnw nitrogen [Mass/Vol]8 mg/dLNormal7-25UnMcCullough-Hyde Memorial HospitalComment on above:Performed By: #### [id number] #### [facility] ([facility]) [address] [place], [place] [address]ATFK NITROGEN/CREATININE (MASS RATIO) IN SER/PLAS8.6Normal [facility] Medical CenterComment on above:Performed By: #### [id number] #### [facility] ([facility]) [address] [place], [place] [address]E-DQMBENQW PROTEINon 5C REACTIVE PROTEIN (MG/L) IN SER/PLAS11.5 mg/LHigh<=5.0UnMcCullough-Hyde Memorial HospitalComment on above: Result Comment: Testing performed using a new methodology, turbidimetry. Normal ranges have been updated. Old normal range was <8 mg/L.Performed By: #### [id number] #### [facility] ([facility]) [address] [place], [place] [address]CTT WITH AUTO DIFFERENTIALon 40-31-4686Qedhuqvfm (Bld) [#/Vol] 0.08 10*3/uLNormal0.00-0.20UnMcCullough-Hyde Memorial HospitalComment on above: Performed By: #### [id number] ####[facility] ([facility])[address] [place], [place] [address]Pzunffncr/100 WBC (Bld)1.1 %High0.0-1.0UnMcCullough-Hyde Memorial HospitalComment on above:Performed By: #### [id number] ####[facility] ([facility])[address] [place], [place] [address]Rqasizwjdgv (Bld) [#/Vol]0.19 10*3/uL Normal0.00-0.50UnMcCullough-Hyde Memorial HospitalComment on above:Performed By: #### [id number] ####[facility] ([facility] [place] [address] Eosinophils/100 WBC (Bld)2.7 %Normal0.0-6.0[facility] Comment on above:Performed By: #### [id number] ####[facility] ([facility])[address] [place], [place] [address]Pmtopzgcixj distribution width (RBC) [Ratio]16.6 % High11.5-15.0UnMcCullough-Hyde Memorial HospitalComment on above:Performed By: #### [id number] ####[facility] ([facility])[address] [place] [address] ERYTHROCYTE MEAN CORPUSCULAR HEMOGLOBIN CONCENTRATION (G/DL) BY ZLWLJZRWQ94.1 g/dLLow32.0-35.0UnMcCullough-Hyde Memorial HospitalComment on above:Performed By: #### [id number] ####[facility] ([facility])[address] [place], [place] [address]Xdemhyvujk (Bld) [Volume fraction]44.5 %Vgtxdr52.0-55.0UnMcCullough-Hyde Memorial HospitalComment on above:Performed By: #### [id number] ####[facility] ([facility])[address] [place], [place] [address]Dwkbigakgr (Bld) [Mass/Vol]13.4 g/dL Sridsb16.0-17.0UnMcCullough-Hyde Memorial HospitalComment on above:Performed By: #### [id number] ####[facility] ([facility])[address] [place] [address] Immature granulocytes (Bld) [#/Vol]0.10 10*3/uLNormal0.00-0.20UnMcCullough-Hyde Memorial HospitalComment on above:Performed By: #### [id number] ####[facility] ([facility])[address] [place], [place] [address]Dgjtbsad granulocytes/100 WBC (Bld)1.4 %High0.0-1.0UnMcCullough-Hyde Memorial HospitalComment on above: Performed By: #### [id number] ####[facility] ([facility])[address] [place], [place] [address]Oasmworjzbq (Bld) [#/Vol]0.90 10*3/uLLow1.20-4.00UnMcCullough-Hyde Memorial HospitalComment on above:Performed By: #### [id number] ####[facility] ([facility])[address] [place], [place] [address]Iboubalmbce/100 WBC (Bld) 12.8 %Low20.0-45.0UnMcCullough-Hyde Memorial HospitalComment on above:Performed By: #### [id number] ####[facility] ([facility])[address] [place], [place] [address]QZL (RBC) [Entitic mass]26.9 pgLow27.0-33.0UnMcCullough-Hyde Memorial HospitalComment on above:Performed By: #### [id number] ####[facility] ([facility])[address] [place], [place] [address]LOV (RBC) [Entitic vol]89.4 fLNormal 82.0-98.0UnMcCullough-Hyde Memorial HospitalComment on above:Performed By: #### [id number] ####[facility] ([facility])[address] [place] [address] Monocytes (Bld) [#/Vol]0.60 10*3/uLNormal0.10-1.00UnMcCullough-Hyde Memorial HospitalComment on above:Performed By: #### [id number] ####[facility] ([facility])[address] [facility] [place], [place] [address]Pbpeygxxt/100 WBC (Bld)8.5 %Normal 5.0-12.0UnMcCullough-Hyde Memorial HospitalComment on above:Performed By: #### [id number] ####[facility] ([facility])[address] [place] [address] Neutrophils (Bld) [#/Vol]5.17 10*3/uLNormal1.60-7.60UnMcCullough-Hyde Memorial HospitalComment on above:Performed By: #### [id number] ####[facility] ([facility])[address] [place] [address]Bqptoaohokj/100 WBC (Bld)73.5 %High 40.0-72.0UnMcCullough-Hyde Memorial HospitalComment on above:Performed By: #### [id number] ####[facility] ([facility])[address] [place] [address]VSHJ (PER 100 WBCS) BY AUTOMATED COUNT0.0 %Unazlw0KzhdabynjdMcCullough-Hyde Memorial Hospital Comment on above:Performed By: #### [id number] ####[facility] ([facility])[address] [place] [address]FIOJSKUHC (10*3/UL) IN BLOOD AUTOMATED HDRAV377 10*3/jQSjelas152-995VtbqtlpefeMcCullough-Hyde Memorial HospitalComment on above: Performed By: #### [id number] ####[facility] ([facility])[address] [place] [address]OLG (Bld) [#/Vol]4.98 10*6/uLNormal4.20-5.70UnMcCullough-Hyde Memorial HospitalComment on above:Performed By: #### [id number] ####[facility] ([facility])[address] [place] [address]MYA (Bld) [#/Vol]7.04 10*3/uLNormal4.00-10.60UnMcCullough-Hyde Memorial HospitalComment on above: Performed By: #### [id number] ####[facility] ([facility])[address] [place], [place] [address]FWJBBBJBISLYY RATEon 39-30-8493GWZLKLBEVFIJP RATE, HLBSKDCGAZK05 mm/hrHigh<20UnMcCullough-Hyde Memorial HospitalComment on above: Performed By: #### [id number] #### [facility] ([facility] [address] [place] [address]HAKGAYCDXD, PEAKon 01-80-5517DAKPRWYBEQ (UG/ML) IN SER/PLAS - PEAK23.0 ug/vPZjeouj96.0-50.0UnMcCullough-Hyde Memorial HospitalComment on above:Performed By: #### [id number] #### [facility] ([facility]) [address] [place] [address]VEXMKKATFK, TROUGHon 26-07-6914WMIJXQCTAI (UG/ML) IN SER/PLAS - YMXNXS15.2 ug/mLNormal5.0-20.0UnMcCullough-Hyde Memorial HospitalComment on above:Performed By: #### [id number] #### [facility] ([facility]) [address] [id number] [id number] with facility and patient was admitted back here at [place] yesterday. They will call back if they need any orders.NormalUnMcCullough-Hyde Memorial Hospital BASIC METABOLIC PANELon 38-48-1823Mkgrw gap [Moles/Vol]9 mmol/LNormal7-[address] [facility] Medical CenterComment on above:Performed By: #### [id number] ####[facility] ([facility])[address] [place], [place] [address]Wxxipfc [Mass/Vol]9.4 mg/dLNormal8.6-10.3UnMcCullough-Hyde Memorial HospitalComment on above:Performed By: #### [id number] ####[facility] ([facility])[address] [place], [place] [address]Xkxssuou [Moles/Vol]96 mmol/ORol45-550JuqelhkuqoMcCullough-Hyde Memorial HospitalComment on above:Performed By: #### [id number] ####[facility] ([facility])[address] [place], [place] [address]QW1 [Moles/Vol]36 mmol/GKqwy60-[address] Vincent Medical CenterComment on above:Performed By: #### [id number] ####[facility] ([facility])[address] [place], [place] [address]Vrcvhtjlho [Mass/Vol]0.98 mg/dLNormal0.70-1.30UnMcCullough-Hyde Memorial HospitalComment on above:Performed By: #### [id number] ####[facility] ([facility])[address] [place] [address]WAGXWMVZIA FILTRATION RATE ML/MIN/1.73 SQ M.MGEFZYSDA89.1 mL/min/1.73m*2Normal>60.0UnMcCullough-Hyde Memorial HospitalComment on above: Result Comment: [facility]???s estimated glomerular filtration rate (eGFR) [...] anyone group of individuals.Performed By: #### [id number] ####[facility] ([facility])[address] [place] [address]Jflaswa [Mass/Vol]90 mg/hCZuddnj27-119QagiorwplzMcCullough-Hyde Memorial HospitalComment on above:Performed By: #### [id number] ####[facility] ([facility] [place])[address] [place] [address]Fugsfjqkf [Moles/Vol]4.0 mmol/LNormal3.5-5.1UnMcCullough-Hyde Memorial HospitalComment on above:Performed By: #### [id number] ####[facility] ([facility] [place])[address] [place] [address] Sodium [Moles/Vol]137 mmol/PCdxzvh523-548LugbpalxxtMcCullough-Hyde Memorial Hospital Comment on above:Performed By: #### [id number] ####[facility] ([facility] [place])[address] [place], [place] [address]Kvdb nitrogen [Mass/Vol]7 mg/dLNormal7-25UnMcCullough-Hyde Memorial HospitalComment on above:Performed By: #### [id number] ####[facility] ([facility] [place])[address] [place], [place] [address]BAHI NITROGEN/CREATININE (MASS RATIO) IN SER/PLAS7.1NormalUnMcCullough-Hyde Memorial HospitalComment on above:Performed By: #### [id number] ####[facility] ([facility] [place])[address] [place] [address]NQYuz 21-50-1590Nylxutzwuje distribution width (RBC) [Ratio] 16.2 %High11.5-15.0UnMcCullough-Hyde Memorial HospitalComment on above:Performed By: #### [id number] #### [facility] ([facility] [place]) [address] [place] [address]VKMJYBCNXNT MEAN CORPUSCULAR HEMOGLOBIN CONCENTRATION (G/DL) BY KWPOSOBOD21.5 g/dLLow32.0-35.0UnMcCullough-Hyde Memorial HospitalComment on above:Performed By: #### [id number] #### [facility] ([facility] [place]) [address] [place] [address]Ofayfswprx (Bld) [Volume fraction]42.0 %Twwurb46.0-55.[address] Vincent Medical CenterComment on above:Performed By: #### [id number] #### [facility] ([facility] [place]) [address] [place] [address]Lcopxnvxfm (Bld) [Mass/Vol]12.8 g/dLLow13.0-17.0UnMcCullough-Hyde Memorial HospitalComment on above:Performed By: #### [id number] #### [facility] ([facility] [place]) [address] [place] [address]IAG (RBC) [Entitic mass]26.9 pgLow27.0-33.0UnMcCullough-Hyde Memorial HospitalComment on above:Performed By: #### [id number] #### [facility] ([facility] [place]) [address] [address]EVD (RBC) [Entitic vol]88.2 xQCsgxvm74.0-98.0UnMcCullough-Hyde Memorial HospitalComment on above:Performed By: #### [id number] #### [facility] ([facility] [place]) [address] [place] [address]LBBZQHUED (10*3/UL) IN BLOOD AUTOMATED [id number] 10*3/uLNormal 150-400UnMcCullough-Hyde Memorial HospitalComment on above:Performed By: #### [id number] #### [facility] ([facility] [place]) [address] [address]LZS (Bld) [#/Vol]4.76 10*6/uLNormal4.20-5.70UnMcCullough-Hyde Memorial HospitalComment on above:Performed By: #### [id number] #### [facility] ([facility] [place]) [address] [place] [address]EGA (Bld) [#/Vol]8.22 10*3/uLNormal4.00-10.60UnMcCullough-Hyde Memorial HospitalComment on above:Performed By: #### [id number] #### [facility] ([facility] [place]) [address] [address]EXDIRMIXMgk 45-57-5395Qdbmivzww [Mass/Vol]2.0 mg/dLNormal1.9-2.[address] Vincent Medical CenterComment on above:Performed By: #### [id number] #### [facility] ([facility] [place]) [address] [place], [place] [address]YTFCH CULTUREon 21-31-3911Cfsfdgei identified Cx Nom (Bld)No growth at 5 daysNormalUniversJ.W. Ruby Memorial HospitalComment on above: Performed By: #### [id number] ####[facility] ([facility] [place])[address], [place] [address]Hvaaq Comment: From a different site than #1.Performed By: #### [id number] #### [facility] ([facility] [place]) [address] [facility] [place], [place] [address]X-DTQFXCWX PROTEINon 10-08-2024 REACTIVE PROTEIN (MG/L) IN SER/PLAS26.6 mg/LHigh<=5.0UnMcCullough-Hyde Memorial HospitalComment on above: Result Comment: Testing performed using a new methodology, turbidimetry. Normal ranges have been updated. Old normal range was <8 mg/L.Performed By: #### [id number] ####[facility] ([facility] [place] [address]SOS WITH AUTO DIFFERENTIALon 19-26-3541Ntcytdqfa (Bld) [#/Vol]0.06 10*3/uLNormal0.00-0.[address] Vincent Medical CenterComment on above:Performed By: #### [id number] #### [facility] ([facility] [place]) [address] [place] [address]Fhgnniksl/100 WBC (Bld)0.8 %Normal0.0-1.0UnMcCullough-Hyde Memorial HospitalComment on above:Performed By: #### [id number] #### [facility] ([facility] [place]) [address] [place] [place] [address]Wouafjohihr (Bld) [#/Vol]0.17 10*3/uLNormal0.00-0.50UnMcCullough-Hyde Memorial HospitalComment on above:Performed By: #### [id number] #### [facility] ([facility] [place]) [address] [place], [place] [address]Xcbcjvqdmuc/100 WBC (Bld)2.3 %Normal0.0-6.0UnMcCullough-Hyde Memorial HospitalComment on above:Performed By: #### [id number] #### [facility] ([facility] [place]) [address] [place], [place] [address]Qianucjddex distribution width (RBC) [Ratio]16.0 %High11.5-15.[address] Vincent Medical CenterComment on above:Performed By: #### [id number] #### [facility] ([facility] [place]) [address] [place], [place] [address]TODGKAMIGMG MEAN CORPUSCULAR HEMOGLOBIN CONCENTRATION (G/DL) BY HTHRGKYQY72.3 g/dLLow32.0-35.0UnMcCullough-Hyde Memorial HospitalComment on above:Performed By: #### [id number] #### [facility] ([facility] [place]) [address] [place], [place] [address]Wbuxinfvaz (Bld) [Volume fraction]40.9 %Zryhbn04.0-55.[address] Vincent Medical CenterComment on above:Performed By: #### [id number] #### [facility] ([facility]) [address] [facility] [place], [place] [address]Rztvfgxppo (Bld) [Mass/Vol]12.4 g/dLLow13.0-17.0UnMcCullough-Hyde Memorial HospitalComment on above:Performed By: #### [id number] #### [facility] ([facility] [place]) [address] [place], [place] [address]Mgglitht granulocytes (Bld) [#/Vol]0.10 10*3/uLNormal0.00-0.[address] Vincent Medical CenterComment on above:Performed By: #### [id number] #### [facility] ([facility] [place]) [address] [facility] [place], [place] [address]Snddhdyb granulocytes/100 WBC (Bld)1.4 %High0.0-1.0UnMcCullough-Hyde Memorial HospitalComment on above:Performed By: #### [id number] #### [facility] ([facility] [place]) [address] [place], [place] [address]Ycaczkzjzem (Bld) [#/Vol]0.73 10*3/uLLow1.20-4.00UnMcCullough-Hyde Memorial HospitalComment on above:Performed By: #### [id number] #### [facility] ([facility] [place]) [address] [place], [place] [address]Ldevuussmbw/100 WBC (Bld)10.0 %Low20.0-45.0UnMcCullough-Hyde Memorial HospitalComment on above:Performed By: #### [id number] #### [facility] ([facility] [place]) [address] [place], [place] [address]NLV (RBC) [Entitic mass]26.7 pgLow27.0-33.0UnMcCullough-Hyde Memorial HospitalComment on above:Performed By: #### [id number] #### [facility] ([facility]) [address] [facility] [place], [place] [address]KSA (RBC) [Entitic vol]88.0 hXKyslrr36.0-98.0UnMcCullough-Hyde Memorial HospitalComment on above:Performed By: #### [id number] #### [facility] ([facility] [place]) [address] [address]Znzpnfpgn (Bld) [#/Vol]0.52 10*3/uLNormal0.10-1.00UnMcCullough-Hyde Memorial HospitalComment on above:Performed By: #### [id number] #### [facility] ([facility] [place]) [address] [place] [address]Bmwcvjujf/100 WBC (Bld)7.1 %Normal5.0-12.0UnMcCullough-Hyde Memorial HospitalComment on above:Performed By: #### [id number] #### [facility] ([facility] [place]) [address] [place] [address]Ifnvynleayx (Bld) [#/Vol]5.73 10*3/uLNormal1.60-7.60UnMcCullough-Hyde Memorial HospitalComment on above:Performed By: #### [id number] #### [facility] ([facility] [place]) [address] [place] [address]Vuxpgtugvck/100 WBC (Bld)78.4 %High40.0-72.0UnMcCullough-Hyde Memorial HospitalComment on above:Performed By: #### [id number] #### [facility] ([facility] [place]) [address] [place] [address]ZETL (PER 100 WBCS) BY AUTOMATED COUNT0.0 %Galrfr4TxqayghjvsMcCullough-Hyde Memorial HospitalComment on above:Performed By: #### [id number] #### [facility] ([facility] [place]) [address] [address]AQZNWHMYH (10*3/UL) IN BLOOD AUTOMATED [id number] 10*3/uLNormal 150-400UnMcCullough-Hyde Memorial HospitalComment on above:Performed By: #### [id number] #### [facility] ([facility] [place]) [address] [place] [address]ZXA (Bld) [#/Vol]4.65 10*6/uLNormal4.20-5.70UnMcCullough-Hyde Memorial HospitalComment on above:Performed By: #### [id number] #### [facility] ([facility] [place]) [address] [place] [address]JGX (Bld) [#/Vol]7.31 10*3/uLNormal4.00-10.60UnMcCullough-Hyde Memorial HospitalComment on above:Performed By: #### [id number] #### [facility] ([facility] [place]) [address] [place] [address]VENZWNNHJTRXB METABOLIC PANELon 31-79-6950Btzjixm [Mass/Vol]3.7 g/dLNormal3.5-5.7UnMcCullough-Hyde Memorial HospitalComment on above:Performed By: #### [id number] #### [facility] ([facility] [place]) [address] [place] [address]SEO [Catalytic activity/Vol]130 U/LZiet91-281YftlwmikjzMcCullough-Hyde Memorial HospitalComment on above:Performed By: #### [id number] #### [facility] ([facility] [place]) [address] [place] [address]NHD [Catalytic activity/Vol]14 U/LNormal7-52UnMcCullough-Hyde Memorial HospitalComment on above:Performed By: #### [id number] #### [facility] ([facility] [place]) [address] [place] [address]Dabyz gap [Moles/Vol]9 mmol/LNormal7-20UnMcCullough-Hyde Memorial HospitalComment on above:Performed By: #### [id number] #### [facility] ([facility] [place]) [address] [place] [address]XJR [Catalytic activity/Vol]19 U/NPxepcx32-09DhdwbclkamMcCullough-Hyde Memorial HospitalComment on above:Performed By: #### [id number] #### [facility] ([facility] [place]) [address] [address]Kknkkqbja [Mass/Vol]0.7 mg/dLNormal0.3-1.0UnMcCullough-Hyde Memorial HospitalComment on above:Performed By: #### [id number] #### [facility] ([facility] [place]) [address] [place], [place] [address]Jktufur [Mass/Vol]9.5 mg/dLNormal8.6-10.3UnMcCullough-Hyde Memorial HospitalComment on above:Performed By: #### [id number] #### [facility] ([facility] [place]) [address] [place], [place] [address]Pygqdjwn [Moles/Vol]99 mmol/ZYcppjo95-444AfbgrxtcxzMcCullough-Hyde Memorial HospitalComment on above:Performed By: #### [id number] #### [facility] ([facility] [place]) [address] [place], [place] [address]CD8 [Moles/Vol]37 mmol/EUkan59-59RkmrmiopsyMcCullough-Hyde Memorial HospitalComment on above:Performed By: #### [id number] #### [facility] ([facility] [place]) [address] [place], [place] [address]Tvoanriixc [Mass/Vol]0.96 mg/dLNormal0.70-1.30UnMcCullough-Hyde Memorial HospitalComment on above:Performed By: #### [id number] #### [facility] ([facility] [place]) [address] [place], [place] [address]MRFFKDZJGX FILTRATION RATE ML/MIN/1.73 SQ M.OLDNTAKLR93.3 mL/min/1.73m*2Normal>60.0UnMcCullough-Hyde Memorial HospitalComment on above: Result Comment: [facility]???s estimated glomerular filtration rate (eGFR) [...] affect anyone group of individuals.Performed By: #### [id number] #### [facility] ([facility] [place]) [address] [place], [place] [address]Ygqedgu [Mass/Vol]83 mg/gJBxcplh77-724NyjozfkjaqMcCullough-Hyde Memorial HospitalComment on above:Performed By: #### [id number] #### [facility] ([facility] [place]) [address] [place] [address]Hfmykxxbz [Moles/Vol]4.2 mmol/LNormal3.5-5.1UnMcCullough-Hyde Memorial HospitalComment on above:Performed By: #### [id number] #### [facility] ([facility] [place]) [address] [address]Quzdvlq [Mass/Vol]7.1 g/dLNormal6.0-8.3UnMcCullough-Hyde Memorial HospitalComment on above:Performed By: #### [id number] #### [facility] ([facility] [place]) [address] [place] [address]Wtucou [Moles/Vol]141 mmol/MBdvldq267-451DolynzhzamMcCullough-Hyde Memorial HospitalComment on above:Performed By: #### [id number] #### [facility] ([facility] [place]) [address] [place] [address]Iard nitrogen [Mass/Vol]10 mg/dLNormal7-25UnMcCullough-Hyde Memorial HospitalComment on above:Performed By: #### [id number] #### [facility] ([facility] [place]) [address] [address]NQCZ NITROGEN/CREATININE (MASS RATIO) IN SER/PLAS10.4Normal [facility] Vincent Medical CenterComment on above:Performed By: #### [id number] #### [facility] ([facility] [place]) [address] [address]AMQQEUMqy 51-13-1023TUMGDSO Attestation signed by Jose Angel Mai MD [...] (Viagra) 25 mg ta (more content not included)...[facility] CenterEDNURSon 41-65-9665ESUZWMMqibesf: transfer from [facility] Complaint: cellulitis to right leg, hx surgery on 09/24 Notes: patient arrived on this day via [facility] from [facility] for pain to the right leg. Previous surgery at [facility] on 09/24 for right leg tib/fib fracture. Per [facility] staff, patient arrived with increased pain, redness and swelling to right lower extremity. Ultrasound was negative for DVT. [facility] ED treated for cellulitis, administered dose of zosyn at 0330, vancomycin at 2030 and 5mg oxycontin at 1930. Patient endorsed non-compliance, did not have post surgery follow up appointment and has been putting weight on leg. History of hypertension, patient O2 desat to 88% when sleeping. Per [facility], patient non-compliant with bipap. Upon arrival, patient endorsed pain 8/10 and nausea. Patient denied chest pain, fever, chills and shortness of breath.NormalUnMcCullough-Hyde Memorial Hospital EDPROVon 28-86-3037RJBTAJKdalmfvnnnMcCullough-Hyde Memorial Hospital [address] [facility] [address] EMERGENCY DEPARTMENT ENCOUNTER CHIEF COMPLAINT Chief Complaint [...] male who was transferred from [facility] for cellulitis involving recent right lower extremity surgery. Patient had surgical pair of a tibia fracture on September 24. The patient states that he went to [facility] emergency department today due to increased swelling. Patient was given Zosyn and vancomycin at [facility]. Patient states that he is [...] No respiratory distress. B (more content not included)...NormalUnMcCullough-Hyde Memorial Hospital MAGNESIUMon 46-47-7396Ecmcyydrg [Mass/Vol]1.8 mg/dLLow1.9-2.7UnMcCullough-Hyde Memorial HospitalComment on above:Performed By: #### [id number] #### [facility] ([facility]) [address] [place], [place] [address]UAEHXKCRJKWXR RATEon 56-64-7052TUZBWLEJJWDRD RATE, ZIJJEGQSIEQ32 mm/hrHigh<20UnMcCullough-Hyde Memorial HospitalComment on above:Performed By: #### [id number] #### [facility] ([facility]) [address] [place] [address]BHZFTSV D 25 HYDROXYon 84-84-9122PUVKFNOTM (25 [place] VITAMIN D3) (NG/ML) IN SER/PLAS37.0 ng/yPCuqqqk60.0-80.0UnMcCullough-Hyde Memorial Hospital Comment on above:Result Comment: >80.0 Toxicity possiblePerformed By: #### [id number] ####[facility] ([facility] [place])[address] [address]bs [id number] Home [facility] called and is seeing the patient for wound care, PT, and OT. Seeing patient a couple times a week could specify a number of times. States is also doing dressing changes. [phone] [facility] HospitalTelephoneon 10-04-2024 [id number] Matty Garces 1970 M Date Provider Department Center 10/04/2024 [address]-RVOODTMATT [facility] MPORTHO No family history on file Reason for Visit and Comments: Information [Other]NormalUnMcCullough-Hyde Memorial Hospital36on Patient in home PT called and wanted to confirm if Dr. Field does the in home therapy approvals/orders or if he had to follow up with his PCP, credit underwriter informed her he does. Patient is scheduled for 10/05/24.NormalUnMcCullough-Hyde Memorial HospitalBASIC METABOLIC PANELon 31-88-0550Osueg gap [Moles/Vol]7 mmol/LNormal7-[address] [facility] Medical CenterComment on above:Performed By: #### [id number] ####[facility] ([facility])[address] [address]Virvnyq [Mass/Vol]9.6 mg/dLNormal8.6-10.3UnMcCullough-Hyde Memorial HospitalComment on above:Performed By: #### [id number] ####[facility] ([facility])[address] [address]Eedulony [Moles/Vol]98 mmol/BAiarfx82-733KbdqrksocnMcCullough-Hyde Memorial HospitalComment on above:Performed By: #### [id number] ####[facility] ([facility] [place])[address] [place] [address]ZD3 [Moles/Vol]34 mmol/HIrdj08-[address] Vincent Medical CenterComment on above:Performed By: #### [id number] ####[facility] ([facility] [place])[address] [place] [address]Cgokzfplqk [Mass/Vol]0.92 mg/dLNormal0.70-1.30UnMcCullough-Hyde Memorial HospitalComment on above:Performed By: #### [id number] ####[facility] ([facility] [place])[address] [place] [address]ELZYOLQFSU FILTRATION RATE ML/MIN/1.73 SQ M.GBEMRXLYC98.9 mL/min/1.73m*2Normal>60.0UnMcCullough-Hyde Memorial HospitalComment on above: Result Comment: [facility]???s estimated glomerular filtration rate (eGFR) [...] anyone group of individuals.Performed By: #### [id number] ####[facility] ([facility] [place])[address] [place] [address]Nqwujre [Mass/Vol]99 mg/kZMivkee95-041OdadcrtmzqMcCullough-Hyde Memorial HospitalComment on above:Performed By: #### [id number] ####[facility] ([facility] [place])[address] [place] [address]Frzoclths [Moles/Vol]4.3 mmol/LNormal3.5-5.1UnMcCullough-Hyde Memorial HospitalComment on above:Performed By: #### [id number] ####[facility] ([facility] [place])[address] [place] [address] Sodium [Moles/Vol]135 mmol/CTjl955-255IvgpvuwdaoMcCullough-Hyde Memorial HospitalComment on above:Performed By: #### [id number] ####[facility] ([facility] [place])[address] [address]Wnia nitrogen [Mass/Vol]20 mg/dLNormal7-25UnMcCullough-Hyde Memorial HospitalComment on above:Performed By: #### [id number] ####[facility] ([facility] [place])[address] [place] [address]IKSQ NITROGEN/CREATININE (MASS RATIO) IN SER/PLAS21.7NormalUniversJ.W. Ruby Memorial HospitalComment on above: Performed By: #### [id number] ####[facility] ([facility] [place])[address] [address]MUHxg 17-31-5775Kwdiweaxxpt distribution width (RBC) [Ratio]15.3 %High 11.5-15.0UnMcCullough-Hyde Memorial HospitalComment on above:Performed By: #### [id number] #### [facility] ([facility] [place]) [address] [place] [address]VSPMRFEDNEX MEAN CORPUSCULAR HEMOGLOBIN CONCENTRATION (G/DL) BY YDWGBLNOV79.9 g/dLLow32.0-35.0UnMcCullough-Hyde Memorial HospitalComment on above:Performed By: #### [id number] #### [facility] ([facility]) [address] [place] [address]Rhvynsvoij (Bld) [Volume fraction]44.4 %Yofxws64.0-55.[address] [facility] CenterComment on above:Performed By: #### [id number] #### [facility] ([facility]) [address] [place] [address]Gkmghfvhvx (Bld) [Mass/Vol]13.7 g/yAWoxmoc58.0-17.0UnMcCullough-Hyde Memorial HospitalComment on above:Performed By: #### [id number] #### [facility] ([facility]) [address] [place] [address]ZZH (RBC) [Entitic mass]26.5 pgLow27.0-33.0UnMcCullough-Hyde Memorial HospitalComment on above:Performed By: #### [id number] #### [facility] ([facility]) [address] [place], [place] [address]DOR (RBC) [Entitic vol]85.9 lTBbswyl78.0-98.0UnMcCullough-Hyde Memorial HospitalComment on above:Performed By: #### [id number] #### [facility] ([facility]) [address] [place], [place] [address]BZWYMNIUG (10*3/UL) IN BLOOD AUTOMATED [id number] 10*3/uLNormal 150-400UnMcCullough-Hyde Memorial HospitalComment on above:Performed By: #### [id number] #### [facility] ([facility]) [address] [place], [place] [address]BHH (Bld) [#/Vol]5.17 10*6/uLNormal4.20-5.70UnMcCullough-Hyde Memorial HospitalComment on above:Performed By: #### [id number] #### [facility] ([facility]) [address] [facility] [place], [place] [address]EJG (Bld) [#/Vol]10.65 10*3/uLHigh4.00-10.60UnMcCullough-Hyde Memorial HospitalComment on above:Performed By: #### [id number] #### [facility] ([facility]) [address] [place], [place] [address]CAZTHCYsp [id number] tried CPAP in the past and was [...] Interventions Referrals/Orders: Yes, [facility] [id number] Admitted 09/23/2024 for Fall, syncope Comminuted right tib/fib fracture CHF HTN Hypomagnesemia Enlarged right hilar node Enlarged prostate Discharge Diagnosis Fall, syncope Comminuted right tib/fib fracture CHF HTN Hypomagnesemia Enlarged right hilar node Enlarged prostate Obstructive sleep apnea Morbid obesity Atrial flutter, new onset Discharge Disposition Home-Health Care [facility] (06) Discharge Medications Your medication list START [...] Medications These medications were sent to [facility] - [address] [place] [address] [address] [facility] [place] [address], [facility] [address] acetaminophen 500 mg tablet aspirin 81 mg [...] team was informed at approximately 1730 per [facility] that patient went into a-flutter and sustained for approximately 2 hours fro (more content not included)...NormalUniversity Hospitals Geneva Medical CenterPROVon [id number] report has been cancelled.NormalMercy Health St. Vincent Medical CenterLetter (Out)on 50-72-7756Rzujrq (Out)[id number] Matty Garces 1970 M Date Provider Department Center 09/28/2024 [id number], GENERIC PRO*INIT None No family history on fileNormalUniversJ.W. Ruby Memorial HospitalMAGNESIUMon 51-54-6456Kvagoiewj [Mass/Vol]2.0 mg/dLNormal1.9-2.7UnMcCullough-Hyde Memorial HospitalComment on above:Performed By: #### [id number] #### [facility] ([facility]) [address] [place], [place] [address]ACTUKDHNxz 48-45-8624JKGKIOZLVT signed AMA paperwork with trama team. Pt left with belongings and family. AMA paperwork in patient chart.NormalMercy Health St. Vincent Medical Center PHOSPHORUSon 65-82-6884Zomznjcqe [Mass/Vol]3.3 mg/dLNormal2.5-5.0UnMcCullough-Hyde Memorial HospitalComment on above:Performed By: #### [id number] ####[facility] ([facility])[address] [place], [place] [address]45ey [id number] patient is Moderately Stable - Low risk of patient condition declining or worsening The patient's goals for the shift include comfort The clinical goals for the shift include VSS, pain control Over the shift, the patient did not make progress toward the following goals. Barriers to progression include unstable VS. Recommendations to address these barriers include continue medications as orderedNormalUninorth texas state hospital [facility]30Daily Case Management Update Multidisciplinary rounds have been completed. Barriers to Discharge: Pending clinical course; POD3 IMN; 4L NC. Patient refusing CPaP at rest/sleep, Pulm brennen consulted and following. PT/OT recommending IPR, PMR consulted and recommend IPR. Patient and spouse would like to go home with [facility]. Referrals sent, pending accepting [facility] agency>>Radha Mendenhall [facility] accepting. DME recommended--wheelchair, rolling walker, bedside commode--scripts written and face to face notes signed.>>need sent to [employer] for fulfillment. SW following. Diet: Dietary [...] R tib fib facrture Level of Consultation Cheesemaker assumes full responsibility 09/23/24 1231 09/23/24 1221 [...] Answer: Post muscular skeletal surgical procedure 09/24/24 1242Normal[facility]30The patient is Moderately Stable - Low [...] medicate for pain as ordered maintain safety precautions.NormalUnMcCullough-Hyde Memorial Hospital30The patient is Moderately Stable - Low [...] and behaviors that affect risk of falls [place] fall precautions as indicated by assessment Educate patient/family on patient safety, including physical limitations Instruct patient to call for assistance with activity based on assessment Modify environment to reduce risk of injuryNormalUniversJ.W. Ruby Memorial HospitalBASIC METABOLIC PANELon 46-44-2794Xhhkn gap [Moles/Vol]9 mmol/LNormal7-[address] Vincent Medical CenterComment on above:Performed By: #### [id number] #### [facility] ([facility]) [address] [place], [place] [address]Kjybuzq [Mass/Vol]9.3 mg/dLNormal8.6-10.3UnMcCullough-Hyde Memorial HospitalComment on above:Performed By: #### [id number] #### [facility] ([facility]) [address] [place], [place] [address]Dejiyeqx [Moles/Vol]99 mmol/QTtertx88-609DgbtxtjvxuMcCullough-Hyde Memorial HospitalComment on above:Performed By: #### [id number] #### [facility] ([facility]) [address] [place], [place] [address]NA2 [Moles/Vol]33 mmol/FWrhy14-37UdvnjewybxMcCullough-Hyde Memorial HospitalComment on above:Performed By: #### [id number] #### [facility] ([facility]) [address] [place], [place] [address]Tzispvejjz [Mass/Vol]0.89 mg/dLNormal0.70-1.30UnMcCullough-Hyde Memorial HospitalComment on above:Performed By: #### [id number] #### [facility] ([facility]) [address] [place], [place] [address]QUJEBUIMRI FILTRATION RATE ML/MIN/1.73 SQ M.HORMZJRPT460.8 mL/min/1.73m*2Normal>60.0UnMcCullough-Hyde Memorial HospitalComment on above: Result Comment: [facility]???s estimated glomerular filtration rate (eGFR) [...] affect anyone group of individuals.Performed By: #### [id number] #### [facility] ([facility]) [address] [place], [place] [address]Ajakiop [Mass/Vol]95 mg/iXDnikzs83-361DhadwlstzlMcCullough-Hyde Memorial HospitalComment on above:Performed By: #### [id number] #### [facility] ([facility]) [address] [place], [place] [address]Wbrgupyxj [Moles/Vol]4.1 mmol/LNormal3.5-5.1UnMcCullough-Hyde Memorial HospitalComment on above:Performed By: #### [id number] #### [facility] ([facility]) [address] [place], [place] [address]Wxcvmx [Moles/Vol]137 mmol/XHmsnpv900-721QvpgnaxlgpMcCullough-Hyde Memorial HospitalComment on above:Performed By: #### [id number] #### [facility] ([facility]) [address] [place], [place] [address]Clfw nitrogen [Mass/Vol]17 mg/dLNormal7-25UnMcCullough-Hyde Memorial HospitalComment on above:Performed By: #### [id number] #### [facility] ([facility]) [address] [place], [place] [address]VCMV NITROGEN/CREATININE (MASS RATIO) IN SER/PLAS19.1Normal [facility] Vincent Medical CenterComment on above:Performed By: #### [id number] #### [facility] ([facility]) [address] [place], [place] [address]BRUjl 29-72-8154Kkwnrkgtian distribution width (RBC) [Ratio]15.4 %High11.5-15.0UnMcCullough-Hyde Memorial HospitalComment on above:Performed By: #### [id number] #### [facility] ([facility]) [address] [place] [address]EWWPSPMUNFY MEAN CORPUSCULAR HEMOGLOBIN CONCENTRATION (G/DL) BY YAKTFFJAX70.8 g/dLLow32.0-35.0UnMcCullough-Hyde Memorial HospitalComment on above:Performed By: #### [id number] #### [facility] ([facility]) [address] [place] [address]Pgdaaguvrb (Bld) [Volume fraction]45.5 %Aaiibd06.0-55.[address] Vincent Medical CenterComment on above:Performed By: #### [id number] #### [facility] ([facility]) [address] [place] [address]Wbjejdfamj (Bld) [Mass/Vol]14.0 g/pGRhogws50.0-17.0UnMcCullough-Hyde Memorial HospitalComment on above:Performed By: #### [id number] #### [facility] ([facility]) [address] [place] [address]CRP (RBC) [Entitic mass]26.5 pgLow27.0-33.0UnMcCullough-Hyde Memorial HospitalComment on above:Performed By: #### [id number] #### [facility] ([facility]) [address] [place] [address]KWG (RBC) [Entitic vol]86.0 oFNfkihd82.0-98.0UnMcCullough-Hyde Memorial HospitalComment on above:Performed By: #### [id number] #### [facility] ([facility]) [address] [place] [address]QKZCFSEIX (10*3/UL) IN BLOOD AUTOMATED [id number] 10*3/uLNormal 150-400UnMcCullough-Hyde Memorial HospitalComment on above:Performed By: #### [id number] #### [facility] ([facility]) [address] [place] [address]WMG (Bld) [#/Vol]5.29 10*6/uLNormal4.20-5.70UnMcCullough-Hyde Memorial HospitalComment on above:Performed By: #### [id number] #### [facility] ([facility]) [address] [place], [place] [address]BCI (Bld) [#/Vol]10.21 10*3/uLNormal4.00-10.60UnMcCullough-Hyde Memorial HospitalComment on above:Performed By: #### [id number] #### [facility] ([facility]) [address] [place], [place] [address]PXKCKBFMEhh 45-06-5111Pluzebihj [Mass/Vol]1.9 mg/dLNormal1.9-2.[address] Vincent Medical CenterComment on above:Performed By: #### [id number] #### [facility] ([facility]) [address] [facility], [place] [address]CPNCMMCDXOqo 50-34-9875Lsufepqks [Mass/Vol]4.4 mg/dLNormal 2.5-5.0UnMcCullough-Hyde Memorial HospitalComment on above:Performed By: #### [id number] #### [facility] ([facility]) [address] [place], [place] [address]RUXUMS BLOOD GAS WITH IONIZED CALCIUMon 40-62-1211Ddqr excess Calc (BldV) [Moles/Vol]9.2 mmol/LNormalUnMcCullough-Hyde Memorial Hospital Comment on above:Performed By: #### [id number] ####[facility] [id number] [place] [address] USACALCIUM IONIZED (MMOL/L) IN BLOOD1.27 mmol/L Normal1.15-1.33UnMcCullough-Hyde Memorial HospitalComment on above:Performed By: #### [id number] ####[facility] [id number] [place] [address] [place] CO2 (BldV) [Partial pressure]50 mm[Hg]Wighpx28-19KfcjcioidhMcCullough-Hyde Memorial HospitalComment on above:Performed By: #### [id number] ####[facility] [id number] [place] [address] USAHCO3 (Bld) [Moles/Vol]34.8 mmol/L NormalUnMcCullough-Hyde Memorial HospitalComment on above:Performed By: #### [id number] ####[facility] [id number] [place] [address] USAOxygen (BldV) [Partial pressure]53 mm[Hg]Igzo99-80DhcykurhhvMcCullough-Hyde Memorial Hospital Comment on above:Performed By: #### [id number] ####[facility] [id number] [place] [address] USAOXYGEN SATURATION (%) IN VENOUS BLOOD87.1 %High 65.0-75.0UnMcCullough-Hyde Memorial HospitalComment on above:Performed By: #### [id number] ####[facility] [id number] [place] [address] USAPH OF VENOUS BLOOD7.39Cmdn9.31-7.41UnMcCullough-Hyde Memorial HospitalComment on above:Performed By: #### [id number] ####[facility] [id number] [place] [address] USABASIC METABOLIC PANELon 38-58-5498Uwoie gap [Moles/Vol]8 mmol/LNormal7-20UnMcCullough-Hyde Memorial HospitalComment on above:Performed By: #### [id number] #### [facility] ([facility]) [address] [place], [place] [address]Ieowmtm [Mass/Vol]9.4 mg/dLNormal8.6-10.3UnMcCullough-Hyde Memorial HospitalComment on above:Performed By: #### [id number] #### [facility] ([facility]) [address] [place], [place] [address]Zdteyfli [Moles/Vol]99 mmol/DZotwuw59-129MccmkhhtabMcCullough-Hyde Memorial HospitalComment on above:Performed By: #### [id number] #### [facility] ([facility]) [address] [place], [place] [address]RY2 [Moles/Vol]36 mmol/UOwsu44-30JcjszlmxetMcCullough-Hyde Memorial HospitalComment on above:Performed By: #### [id number] #### [facility] ([facility]) [address] [place] [address]Qbyxgdtcof [Mass/Vol]0.91 mg/dLNormal0.70-1.30UnMcCullough-Hyde Memorial HospitalComment on above:Performed By: #### [id number] #### [facility] ([facility]) [address] [place] [address]NONBRFTCFP FILTRATION RATE ML/MIN/1.73 SQ M.IQITVJVUG430.2 mL/min/1.73m*2Normal>60.0UnMcCullough-Hyde Memorial HospitalComment on above: Result Comment: [facility]???s estimated glomerular filtration rate (eGFR) [...] affect anyone group of individuals.Performed By: #### [id number] #### [facility] ([facility]) [address] [place] [address]Raphbwv [Mass/Vol]85 mg/xWOpfhss03-259DxrwuvyrmzMcCullough-Hyde Memorial HospitalComment on above:Performed By: #### [id number] #### [facility] ([facility]) [address] [place] [address]Leoxtjcxx [Moles/Vol]3.8 mmol/LNormal3.5-5.1UnMcCullough-Hyde Memorial HospitalComment on above:Performed By: #### [id number] #### [facility] ([facility]) [address] [place] [address]Oukcpq [Moles/Vol]139 mmol/MRtdkqd102-762GmiqxeohowMcCullough-Hyde Memorial HospitalComment on above:Performed By: #### [id number] #### [facility] ([facility]) [address] [place] [address]Ayxz nitrogen [Mass/Vol]18 mg/dLNormal7-25UnMcCullough-Hyde Memorial HospitalComment on above:Performed By: #### [id number] #### [facility] ([facility]) [address] [place] [address]NGEU NITROGEN/CREATININE (MASS RATIO) IN SER/PLAS19.8Normal [facility] Vincent Medical CenterComment on above:Performed By: #### [id number] #### [facility] ([facility]) [address] [place] [address]IUXzt 98-93-0273Ahchductnlo distribution width (RBC) [Ratio]15.4 %High11.5-15.0UnMcCullough-Hyde Memorial HospitalComment on above:Performed By: #### [id number] #### [facility] ([facility]) [address] [place] [address]WEPACISYNPV MEAN CORPUSCULAR HEMOGLOBIN CONCENTRATION (G/DL) BY KSRWGVWVL82.1 g/dLLow32.0-35.0UnMcCullough-Hyde Memorial HospitalComment on above:Performed By: #### [id number] #### [facility] ([facility]) [address] [place] [address]Nglsyheqid (Bld) [Volume fraction]43.8 %Ywsxdt36.0-55.[address] [facility] Medical CenterComment on above:Performed By: #### [id number] #### [facility] ([facility]) [address] [place] [address]Bnagwemlnf (Bld) [Mass/Vol]13.6 g/fKLuqqkk50.0-17.0UnMcCullough-Hyde Memorial HospitalComment on above:Performed By: #### [id number] #### [facility] ([facility]) [address] [place] [address]LPL (RBC) [Entitic mass]26.3 pgLow27.0-33.0UnMcCullough-Hyde Memorial HospitalComment on above:Performed By: #### [id number] #### [facility] [address] [place] [address]UCN (RBC) [Entitic vol]84.7 vARqwlpn20.0-98.0UnMcCullough-Hyde Memorial HospitalComment on above:Performed By: #### [id number] #### [facility] ([facility]) [address] [place] [address]ZLKLDNMJG (10*3/UL) IN BLOOD AUTOMATED [id number] 10*3/uLNormal 150-400UnMcCullough-Hyde Memorial HospitalComment on above:Performed By: #### [id number] #### [facility] ([facility]) [address] [place], [place] [address]TWO (Bld) [#/Vol]5.17 10*6/uLNormal4.20-5.70UnMcCullough-Hyde Memorial HospitalComment on above:Performed By: #### [id number] #### [facility] ([facility]) [address] [place] [place] [address]PUD (Bld) [#/Vol]9.63 10*3/uLNormal4.00-10.60UnMcCullough-Hyde Memorial HospitalComment on above:Performed By: #### [id number] #### [facility] ([facility]) [address] [place], [place] [address]OOWQCRCFQyd 67-85-5275Sismqjufh [Mass/Vol]1.9 mg/dLNormal1.9-2.[address] [facility] Medical CenterComment on above:Performed By: #### [id number] #### [facility] ([facility]) [address] [place], [place] [address]EWYSDBTOTCjk 02-59-6924Mwtcbqfdp [Mass/Vol]2.6 mg/dLNormal 2.5-5.0UnMcCullough-Hyde Memorial HospitalComment on above:Performed By: #### [id number] #### [facility] ([facility]) [address] [place] [id number] [id number]: Pain - Adult Goal: Verbalizes/displays adequate comfort [...] address these barriers include consult for respiratory therapy.[facility]30Daily Case Management Update Multidisciplinary rounds have been completed. Barriers to Discharge: Pending clinical course; patient requiring 10L salter at this time, pulmonary navigator consulted for possible PATEL. CXR ordered, no acute findings. Patient will require a home O2 evaluation if unable to wean oxygen. PT/OT recommending IPR, PMR consulted and recommend IPR. Patient and spouse would like to go home with [facility]. Referrals sent, pending accepting [facility] agency. DME recommended--wheelchair, rolling walker, [...] R tib fib facrture Level of Consultation Cheesemaker assumes full responsibility 09/23/24 1231 09/23/24 1221 [...] Answer: Post muscular skeletal surgical procedure 09/24/24 1242NormalUniversJ.W. Ruby Memorial HospitalBASIC METABOLIC PANELon 78-65-6875Vfodp gap [Moles/Vol]9 mmol/LNormal7-20UnMcCullough-Hyde Memorial HospitalComment on above:Performed By: #### [id number] ####[facility] ([facility])[address] [place], [place] [address]Axkpeuj [Mass/Vol]8.9 mg/dLNormal 8.6-10.3UnMcCullough-Hyde Memorial HospitalComment on above:Performed By: #### [id number] ####[facility] ([facility])[address] [place], [place] [address]Ejqipuka [Moles/Vol]97 mmol/QEky20-838XpohujsekhMcCullough-Hyde Memorial HospitalComment on above:Performed By: #### [id number] ####[facility] ([facility])[address] [place], [place] [address]FP2 [Moles/Vol]32 mmol/MUfwo34-34NacfdcnjxeMcCullough-Hyde Memorial HospitalComment on above:Performed By: #### [id number] ####[facility] ([facility])[address] [place], [place] [address]Vrcthcqpgu [Mass/Vol]0.91 mg/dLNormal 0.70-1.30UnMcCullough-Hyde Memorial HospitalComment on above:Performed By: #### [id number] ####[facility] ([facility])[address] [place], [place] [address]PRDMNDWRKM FILTRATION RATE ML/MIN/1.73 SQ M.TRGRLEEFA165.2 mL/min/1.73m*2Normal>60.[address] [facility] Medical CenterComment on above:Result Comment: [facility]???s estimated glomerular filtration rate (eG [...] group of individuals. Performed By: #### [id number] ####[facility] ([facility])[address] [place] [address]Yiwarwp [Mass/Vol]141 mg/lAGgdd74-194MnokhjhowwMcCullough-Hyde Memorial HospitalComment on above:Performed By: #### [id number] ####[facility] ([facility])[address] [place] [address]Uslggjcui [Moles/Vol]4.2 mmol/LNormal 3.5-5.1UnMcCullough-Hyde Memorial HospitalComment on above:Performed By: #### [id number] ####[facility] ([facility])[address] [place] [address]Hfukkx [Moles/Vol]134 mmol/RRnn272-182MpkuysdnnnMcCullough-Hyde Memorial HospitalComment on above:Performed By: #### [id number] ####[facility] ([facility])[address] [facility] [place] [address]Fait nitrogen [Mass/Vol]15 mg/dLNormal7-25UnMcCullough-Hyde Memorial HospitalComment on above:Performed By: #### [id number] ####[facility] ([facility])[address] [place], [place] [address]SVHF NITROGEN/CREATININE (MASS RATIO) IN SER/PLAS16.5NormalUniversJ.W. Ruby Memorial HospitalComment on above: Performed By: #### [id number] ####[facility] ([facility])[address] [place], [place] [address]UIZky 07-17-6[address]Nfmgkifrhkf distribution width (RBC) [Ratio]14.9 % Ogwpsx82.5-15.0UnMcCullough-Hyde Memorial HospitalComment on above:Performed By: #### [id number] #### [facility] ([facility]) [address] [place], [place] [address]KVEWACFVIVM MEAN CORPUSCULAR HEMOGLOBIN CONCENTRATION (G/DL) BY UMMIPVUKI53.1 g/dLLow32.0-35.0UnMcCullough-Hyde Memorial HospitalComment on above:Performed By: #### [id number] #### [facility] ([facility]) [address] [place] [address]Blmtxaggjh (Bld) [Volume fraction]45.4 %Amownk44.0-55.[address] [facility] Medical CenterComment on above:Performed By: #### [id number] #### [facility] ([facility]) [address] [place] [address]Onzqkwdfur (Bld) [Mass/Vol]14.1 g/iWAwiujx46.0-17.0UnMcCullough-Hyde Memorial HospitalComment on above:Performed By: #### [id number] #### [facility] ([facility]) [address] [place] [address]WYE (RBC) [Entitic mass]26.3 pgLow27.0-33.0UnMcCullough-Hyde Memorial HospitalComment on above:Performed By: #### [id number] #### [facility] ([facility]) [address] [place] [address]FWS (RBC) [Entitic vol]84.5 vDChpuxn18.0-98.0UnMcCullough-Hyde Memorial HospitalComment on above:Performed By: #### [id number] #### [facility] ([facility]) [address] [place] [id number] (10*3/UL) IN BLOOD AUTOMATED [id number] 10*3/uLNormal 150-400UnMcCullough-Hyde Memorial HospitalComment on above:Performed By: #### [id number] #### [facility] ([facility]) [address] [place] [address]MQK (Bld) [#/Vol]5.37 10*6/uLNormal4.20-5.70UnMcCullough-Hyde Memorial HospitalComment on above:Performed By: #### [id number] #### [facility] ([facility]) [address] [place] [address]AXD (Bld) [#/Vol]14.37 10*3/uLHigh4.00-10.60UnMcCullough-Hyde Memorial HospitalComment on above:Performed By: #### [id number] #### [facility] ([facility]) [address] [place] [address]MBTNSXMDDel 29-14-2685Lfkqoqidd [Mass/Vol]2.1 mg/dLNormal1.9-2.[address] Vincent Medical CenterComment on above:Performed By: #### [id number] ####[facility] ([facility])[address] [place] [id number] [id number] RN met patient at bedside and provided the [facility] Services Patient Brochure. Patient will follow-up with Orthopedics 10/05/2024 at 0900. No further needs currently.NormalUnMcCullough-Hyde Memorial HospitalPHOSPHORUSon 09-25-2024 Magnesium [Mass/Vol]2.8 mg/dLNormal2.5-5.0UnMcCullough-Hyde Memorial Hospital Comment on above:Performed By: #### [id number] ####[facility] ([facility])[address] [place] [id number] [id number] patient is Moderately Stable - Low risk [...] Adult Goal: Free from fall injury Outcome: ProgressingNormalUniversJ.W. Ruby Memorial HospitalBASIC METABOLIC PANELon 81-13-3035Oqnns gap [Moles/Vol]8 mmol/LNormal7-20UnMcCullough-Hyde Memorial HospitalComment on above:Performed By: #### [id number] ####[facility] ([facility])[address] [place] [address]Rfwwpks [Mass/Vol]9.1 mg/dLNormal 8.6-10.3UnMcCullough-Hyde Memorial HospitalComment on above:Performed By: #### [id number] ####[facility] ([facility])[address] [place], [place] [address]Myyprmjn [Moles/Vol]98 mmol/IHhjtai24-127HhtywvyubtMcCullough-Hyde Memorial HospitalComment on above:Performed By: #### [id number] ####[facility] ([facility])[address] [place] [place] [address]YQ2 [Moles/Vol]35 mmol/YNnex50-53KfmogufeznMcCullough-Hyde Memorial HospitalComment on above:Performed By: #### [id number] ####[facility] ([facility])[address] [place], [place] [address]Lmqvetszib [Mass/Vol]1.02 mg/dLNormal 0.70-1.30UnMcCullough-Hyde Memorial HospitalComment on above:Performed By: #### [id number] ####[facility] ([facility])[address] [place], [place] [address]RECRXZFINN FILTRATION RATE ML/MIN/1.73 SQ M.BUCUUUMXJ63.3 mL/min/1.73m*2Normal>60.[address] Vincent Medical CenterComment on above:Result Comment: The [facility]???s estimated glomerular filtration rate (eG [...] group of individuals. Performed By: #### [id number] ####[facility] ([facility])[address] [place], [place] [address]Eiztszi [Mass/Vol]103 mg/qLMovy04-316TgzsbdjpdyMcCullough-Hyde Memorial HospitalComment on above:Performed By: #### [id number] ####[facility] ([facility])[address] [place], [place] [address]Hnfftbmhw [Moles/Vol]4.2 mmol/LNormal 3.5-5.1UnMcCullough-Hyde Memorial HospitalComment on above:Performed By: #### [id number] ####[facility] ([facility])[address] [place] [address]Qoamtc [Moles/Vol]137 mmol/HPatynl634-231MufddncsnrMcCullough-Hyde Memorial HospitalComment on above:Performed By: #### [id number] ####[facility] ([facility])[address] [place] [address]Iigy nitrogen [Mass/Vol]11 mg/dLNormal7-25UnMcCullough-Hyde Memorial HospitalComment on above:Performed By: #### [id number] ####[facility] ([facility])[address] [place] [address]BZSV NITROGEN/CREATININE (MASS RATIO) IN SER/PLAS10.8NormalUniversJ.W. Ruby Memorial HospitalComment on above: Performed By: #### [id number] ####[facility] ([facility])[address] [place], [place] [address]VVSdl 09-53-5374Vxymckjjwlr distribution width (RBC) [Ratio]15.5 %High 11.5-15.0UnMcCullough-Hyde Memorial HospitalComment on above:Performed By: #### [id number] #### [facility] ([facility]) [address] [address]NPUAISAWWJF MEAN CORPUSCULAR HEMOGLOBIN CONCENTRATION (G/DL) BY PFHVJMTCI14.4 g/dLLow32.0-35.0UnMcCullough-Hyde Memorial HospitalComment on above:Performed By: #### [id number] #### [facility] ([facility]) [address] [place], [place] [address]Mqdmadkfcr (Bld) [Volume fraction]46.4 %Zpuzzi03.0-55.[address] Vincent Medical CenterComment on above:Performed By: #### [id number] #### [facility] ([facility]) [address] [place], [place] [address]Jiwsdsbfmo (Bld) [Mass/Vol]14.1 g/zUYmkbty25.0-17.0UnMcCullough-Hyde Memorial HospitalComment on above:Performed By: #### [id number] #### [facility] ([facility]) [address] [place] [address]ZYI (RBC) [Entitic mass]26.4 pgLow27.0-33.0UnMcCullough-Hyde Memorial HospitalComment on above:Performed By: #### [id number] #### [facility] ([facility]) [address] [address]OPR (RBC) [Entitic vol]86.7 uZDjafje86.0-98.0UnMcCullough-Hyde Memorial HospitalComment on above:Performed By: #### [id number] #### [facility] ([facility]) [address] [place] [address]LAGGLWDUZ (10*3/UL) IN BLOOD AUTOMATED [id number] 10*3/uLNormal 150-400UnMcCullough-Hyde Memorial HospitalComment on above:Performed By: #### [id number] #### [facility] ([facility]) [address] [place] [address]NLT (Bld) [#/Vol]5.35 10*6/uLNormal4.20-5.70UnMcCullough-Hyde Memorial HospitalComment on above:Performed By: #### [id number] #### [facility] ([facility]) [address] [address]IVJ (Bld) [#/Vol]7.56 10*3/uLNormal4.00-10.60UnMcCullough-Hyde Memorial HospitalComment on above:Performed By: #### [id number] #### [facility] ([facility]) [address] [place] [place] [address]CTVGXXOdd 15-88-7698RIKKNWNVaodnlzp Medicine and Rehabilitation Consult Note Patient not staffed by PM&R today due to surgery today for IMN placement. Our team will staff tomorrow, 09/25/23. Silvia Zaldivar MDNormalUniversity Ohio Valley HospitalMAGNESIUMon 68-53-1393Gpqiivmzv [Mass/Vol]2.2 mg/dLNormal1.9-2.7UnSumma Health Medical CenterComment on above:Performed By: #### [id number] #### [facility] NÉSTOR PRIEST) [place] [address]BGAOGLkz 68-98-6353GCSDDU Attestation signed by Sandrine Field MD at [...] Note Date: 09/23/2024 - 09/24/2024 Location: [facility] OR Name: Matty Garces, : 1970, [...] by intramedullary implant with interlocking screws [CPT: 97877] Stress exam of right ankle under anesthesia [CPT: 51650] Intraoperative use of fluoroscopy less than 1 hour by physician [CPT: 28194] Surgeons Primary: Sandrine Field MD Resident - Assisting: Bienvenido Trinidad MD; Luis Felipe Rivas MD; iGna Alvarez MD Procedure Summary Anesthesia: General ASA: [...] mm x 34 mm interlocking screw Staff: Search And Rescue Officer: Emi Francis RN Cloth Weigher: CHARLINE Monetjo Scrub Person: Araseli Butler CST Indications: Matty Garces is an 53 y.o. male who presented as a transfer from [facility] on 09/23/2024. Patient was transferred due to findings of a right distal third tibial shaft fracture after a fall in the shower. The fracture was closed and was subsequently reduced and splinted at [place] in a long-leg splint. Patient made stable [...] of the soft t (more content not included)...NormalUnMcCullough-Hyde Memorial Hospital PHOSPHORUSon 45-07-7897Rygwtljrj [Mass/Vol]4.0 mg/dLNormal2.5-5.0UnMcCullough-Hyde Memorial HospitalComment on above:Performed By: #### [id number] #### [facility] (AKER) [address] [place], [place] [address]FJDV GLUCOSE METER UNSOLICITED RESULTSon 84-66-0942Iyvljqd [Mass/Vol]100 mg/zLXmzhdo07-511FvdvikouoqMcCullough-Hyde Memorial HospitalComment on above:Order Comment: Waived Testing in the ED is performed under the ED CLIA certificate #[id number].Result Comment: oiansu4Acpbdmnus By: #### [id number] #### [facility] (BEAKER) [address] [place] [place], [place] [address]LCMIuh 86-63-8191QYWOFRVNI PARTIAL THROMBOPLASTIN TIME IN PPP BY COAGULATION ASSAY31.2 DkznjueSythoq04.0-35.0UnMcCullough-Hyde Memorial Hospital Comment on above:Result Comment: Clinical significance of the APTT is questionable in the presence of heparin.Performed By: #### [id number] ####[facility] ([facility] [place] [address]SNE WITH AUTO DIFFERENTIALon 90-87-3415Ejevpxxyc (Bld) [#/Vol]0.05 10*3/uLNormal0.00-0.[address] Vincent Medical CenterComment on above:Performed By: #### [id number] ####[facility] ([facility])[address] [place] [address]Itencrzyg/100 WBC (Bld)0.5 %Normal0.0-1.0UnMcCullough-Hyde Memorial HospitalComment on above: Performed By: #### [id number] ####[facility] ([facility])[address] [place], [place] [address]Bibszowvqqh (Bld) [#/Vol]0.11 10*3/uLNormal0.00-0.[address] Vincent Medical CenterComment on above:Performed By: #### [id number] ####[facility] ([facility])[address] [place] [address]Koztmuwghld/100 WBC (Bld)1.0 %Normal0.0-6.0UnMcCullough-Hyde Memorial HospitalComment on above: Performed By: #### [id number] ####[facility] ([facility])[address] [place], [place] [address]Oilirrbbiab distribution width (RBC) [Ratio]15.9 %High 11.5-15.0UnMcCullough-Hyde Memorial HospitalComment on above:Performed By: #### [id number] ####[facility] ([facility])[address] [place] [address] ERYTHROCYTE MEAN CORPUSCULAR HEMOGLOBIN CONCENTRATION (G/DL) BY GEPNGSXKB65.3 g/dLLow32.0-35.0UnMcCullough-Hyde Memorial HospitalComment on above:Performed By: #### [id number] ####[facility] ([facility])[address] [place], [place] [address]Tuyexlljwd (Bld) [Volume fraction]47.8 %Xblbss51.0-55.0UnMcCullough-Hyde Memorial HospitalComment on above:Performed By: #### [id number] ####[facility] ([facility])[address] [place], [place] [address]Rvoygcalow (Bld) [Mass/Vol]14.5 g/dL Hjxeid45.0-17.0UnMcCullough-Hyde Memorial HospitalComment on above:Performed By: #### [id number] ####[facility] ([facility])[address] [place] [address] Immature granulocytes (Bld) [#/Vol]0.10 10*3/uLNormal0.00-0.20UnMcCullough-Hyde Memorial HospitalComment on above:Performed By: #### [id number] ####[facility] ([facility])[address] [place], [place] [address]Tseczztb granulocytes/100 WBC (Bld)0.9 %Normal0.0-1.0UnMcCullough-Hyde Memorial HospitalComment on above: Performed By: #### [id number] ####[facility] ([facility])[address] [place], [place] [address]Lrsbudgobpk (Bld) [#/Vol]0.74 10*3/uLLow1.20-4.00UnMcCullough-Hyde Memorial HospitalComment on above:Performed By: #### [id number] ####[facility] ([facility])[address] [place], [place] [address]Eahxmominff/100 WBC (Bld) 7.0 %Low20.0-45.0UnMcCullough-Hyde Memorial HospitalComment on above:Performed By: #### [id number] ####[facility] ([facility])[address] [place], [place] [address]GTA (RBC) [Entitic mass]26.4 pgLow27.0-33.0UnMcCullough-Hyde Memorial HospitalComment on above:Performed By: #### [id number] ####[facility] (BEAKER)[address] [place], [place] [address]CYI (RBC) [Entitic vol]87.1 fLNormal 82.0-98.0UnMcCullough-Hyde Memorial HospitalComment on above:Performed By: #### [id number] ####[facility] ([facility])[address] [place] [address] Monocytes (Bld) [#/Vol]0.73 10*3/uLNormal0.10-1.00UnMcCullough-Hyde Memorial HospitalComment on above:Performed By: #### [id number] ####[facility] ([facility])[address] [place], [place] [address]Qigmqseuq/100 WBC (Bld)6.9 %Normal 5.0-12.0UnMcCullough-Hyde Memorial HospitalComment on above:Performed By: #### [id number] ####[facility] ([facility])[address] [place] [address] Neutrophils (Bld) [#/Vol]8.83 10*3/uLHigh1.60-7.60UnMcCullough-Hyde Memorial HospitalComment on above:Performed By: #### [id number] ####[facility] ([facility])[address] [facility] [place] [address]Pyymxifmpbp/100 WBC (Bld)83.7 %High 40.0-72.0UnMcCullough-Hyde Memorial HospitalComment on above:Performed By: #### [id number] ####[facility] ([facility])[address], [place] [address]BHQY (PER 100 WBCS) BY AUTOMATED COUNT0.0 %Rifpao7NqsdqskuliMcCullough-Hyde Memorial Hospital Comment on above:Performed By: #### [id number] ####[facility] ([facility])[address] [facility] [place] [address]VZLVFJMIL (10*3/UL) IN BLOOD AUTOMATED ONBPB386 10*3/vDIvlxzc138-950DavvxuszuaMcCullough-Hyde Memorial HospitalComment on above: Performed By: #### [id number] ####[facility] ([facility], [place] [address]XPY (Bld) [#/Vol]5.49 10*6/uLNormal4.20-5.70UnMcCullough-Hyde Memorial HospitalComment on above:Performed By: #### [id number] ####[facility] ([facility])[address] [place] [address]BXQ (Bld) [#/Vol]10.56 10*3/uLNormal4.00-10.60UnMcCullough-Hyde Memorial HospitalComment on above: Performed By: #### [id number] ####[facility] ([facility])[address] [place], [place] [address]VQRYURKLOFWBW METABOLIC PANELon 88-13-9892Tvowgpe [Mass/Vol] 3.9 g/dLNormal3.5-5.7UnMcCullough-Hyde Memorial HospitalComment on above: Performed By: #### [id number] ####[facility] ([facility])[address] [place], [place] [address]QBB [Catalytic activity/Vol]98 U/APdhwqc40-470JsnpltkjveMcCullough-Hyde Memorial HospitalComment on above:Performed By: #### [id number] ####[facility] ([facility])[address] [place], [place] [address]CBI [Catalytic activity/Vol]34 U/L Normal7-52UnMcCullough-Hyde Memorial HospitalComment on above:Performed By: #### [id number] ####[facility] ([facility])[address] [place], [place] [address]Gensp gap [Moles/Vol]11 mmol/LNormal7-20UnMcCullough-Hyde Memorial HospitalComment on above:Performed By: #### [id number] ####[facility] ([facility])[address] [place], [place] [address]QHI [Catalytic activity/Vol]63 U/STakh54-75CwovzwxstmMcCullough-Hyde Memorial HospitalComment on above:Performed By: #### [id number] ####[facility] ([facility])[address] [place], [place] [address]Tgavyhwdb [Mass/Vol]0.7 mg/dL Normal0.3-1.0UnMcCullough-Hyde Memorial HospitalComment on above:Performed By: #### [id number] ####[facility] (BEAKER)[address] [place] [address] Calcium [Mass/Vol]8.9 mg/dLNormal8.6-10.3UnMcCullough-Hyde Memorial Hospital Comment on above:Performed By: #### [id number] ####[facility] ([facility])[address] [place], [place] [address]Ubcxipbz [Moles/Vol]101 mmol/RRxuowq56-[address] Vincent Medical CenterComment on above:Performed By: #### [id number] ####[facility] ([facility])[address] [place], [place] [address]DQ9 [Moles/Vol] 27 mmol/UNnabvl44-61TkrjfcrzoyMcCullough-Hyde Memorial HospitalComment on above: Performed By: #### [id number] ####[facility] ([facility])[address] [place], [place] [address]Dvsbeykwgn [Mass/Vol]0.96 mg/dLNormal0.70-1.30UnMcCullough-Hyde Memorial HospitalComment on above:Performed By: #### [id number] ####[facility] ([facility])[address] [place], [place] [address]GHGUISQQJQ FILTRATION RATE ML/MIN/1.73 SQ M.RQVYLDEGB16.9 mL/min/1.73m*2Normal>60.0UnMcCullough-Hy[facility] Memorial Hospital Comment on above:Result Comment: [facility]???s estimated glomerular filtration rate (eGFR) [...] anyone group of individuals.Performed By: #### [id number] ####[facility] ([facility] [place], [place] [address]Vkpftav [Mass/Vol]93 mg/gFHfneny12-181WxuydfzcbtMcCullough-Hyde Memorial HospitalComment on above:Performed By: #### [id number] ####[facility] ([facility])[address] [place] [address]Fqlcdpqgj [Moles/Vol]4.3 mmol/LNormal3.5-5.1UnMcCullough-Hyde Memorial HospitalComment on above:Performed By: #### [id number] ####[facility] ([facility])[address] [place] [address]Nnljqtr [Mass/Vol]7.2 g/dLNormal 6.0-8.3UnMcCullough-Hyde Memorial HospitalComment on above:Performed By: #### [id number] ####[facility] ([facility])[address] [place] [address]Fuljqq [Moles/Vol]135 mmol/QLvn526-994IffvaiirvgMcCullough-Hyde Memorial HospitalComment on above:Performed By: #### [id number] ####[facility] ([facility])[address] [place] [address]Lvkc nitrogen [Mass/Vol]8 mg/dLNormal7-25UnMcCullough-Hyde Memorial HospitalComment on above:Performed By: #### [id number] ####[facility] ([facility])[address] [place] [address]GSIA NITROGEN/CREATININE (MASS RATIO) IN SER/PLAS8.3NormalUniversJ.W. Ruby Memorial HospitalComment on above: Performed By: #### [id number] ####[facility] ([facility])[address] [place] [address]JAUWPPNki 68-59-2839TGXRXIE Attestation signed by Sandrine Field MD at [...] Alvarez MD Orthopaedic Surgery, Resident Ortho Pager [phone] 09/23/24 6:55 PM May contact the on-call resident with any concerns via the Orthopaedic pager at any time.[facility] WestCT ABDOMEN PELVIS W IV CONTRASTon 26-95-2784KY ABDOMEN PELVIS W IV CONTRASTClinical History and [...] PSA is advised. * Electronically signed: Fahad Frazier.[facility] WestCT CERVICAL SPINE WO IV CONTRASTon 16-00-2628NZ CERVICAL SPINE WO IV CONTRASTCT CERVICAL SPINE [...] acute fracture nor listhesis. Electronically signed: Fahad Frazier.[facility] WestCT CHEST W IV CONTRASTon 45-33-7337SH CHEST W IV CONTRASTCT CHEST W IV [...] 3-4 months is recommended. Electronically signed: Fahad Frazier.[facility] WestCT HEAD WO IV CONTRASTon [id number] HEAD WO IV CONTRASTClinical History and Information: [...] unenhanced CT brain * Electronically signed: Fahad Frazier.[facility] WestCT TIBIA FIBULA RIGHT WO IV CONTRASTon 89-19-0300TD TIBIA FIBULA RIGHT WO IV CONTRASTCT TIBIA [...] changes of the knee Electronically signed: Fahad Frazier.[facility] EDNURSon 09-89-5546TKUJBGHpwl of arrival (squad #, walk in, police, etc): [facility] Chief complaint(s): Right leg fracture Arrival Note (brief scenario, treatment [employer] PROFESSIONAL, etc): Patient arrives via [facility] from [facility] to be seen by orthopedics for Right tib-fib fracture. Patient arrives with Rt leg splintedNormalUniversWilson Memorial HospitalPROVon 63-03-3112VXPMXHHojqalf of Present Illness Chief Complaint Patient presents with Leg Injury Initial evaluation completed by Dr. Lang. Matty Garces is a 53 y/o male presenting to the ED with c/o leg injury. Pt was transferred from [facility] for right distal tibfib fracture. Pt [...] Procedure Abnormality Status --------- ------ CBC auto differential[[id number]] Abnormal Final result Please view results for these tests on the individual orders. TYPE AND SCREEN ABO G (more content not included)...NormalUnMcCullough-Hyde Memorial Hospital ETHANOLon 89-18-8986SKSXGRY (MG/DL) IN SER/PLAS<10Normal<10UnMcCullough-Hyde Memorial HospitalComment on above:Performed By: #### [id number] #### [facility] (BEAKER) [address] [place], [place] [address]NYNDNER CALCULATED (%)<0.01NormalUniversJ.W. Ruby Memorial HospitalComment on above:Performed By: #### [id number] #### [facility] (BE[facility]ER) [address] [place] [place], [place] [address]UUjb 61-26-6564MVMtyzppqufe of [place] Trauma Surgery Chief Complaint: Trauma Fall Mechanism of Injury: 53 y.o. year old male who was brought in via EMS. He had no C-collar or back board in place. Circumstances of injury: Patient states that he was recently admitted to [place] for cellulitis to the [facility], he was discharged yesterday and this morning was home, he got out of bed to take a shower and had a micro seizure and heard his right ankle snap. Denies hitting head or LOC but admits that he doesn't remember the whole event. He went back to [place] ED where a right tib/fib fracture was found and patient was transferred to [facility] Of note patient is on anticoagulant/antiplatelets. Baby aspirin, however he was receiving Shots to prevent blood clots while inpatient at [place] Review of Systems: General: No For Chills, [...] lb)] 136 kg (300 lb) (09/23 1048) [place] Coma Scale Score: 15 No intake or [...] Cervica (more content not included)...NormalMercy Health St. Vincent Medical CenterLACTIC ACID, PLASMAon 86-52-2000TXRSLMC (MMOL/L) IN SER/PLAS0.6 mmol/L Normal0.5-2.2UnMcCullough-Hyde Memorial HospitalComment on above:Performed By: #### [id number] #### [facility] ([facility]) [address], [place] [address]ZOZECXOCTte [id number] [Mass/Vol]1.8 mg/dLLow1.9-2.[address] Vincent Medical CenterComment on above:Performed By: #### [id number] ####[facility] ([facility])[address] [place], [place] [address]QUQUTDSWYXrs [id number] [Mass/Vol]3.5 mg/dLNormal2.5-5.0UnMcCullough-Hyde Memorial HospitalComment on above:Performed By: #### [id number] #### [facility] ([facility]) [address] [place], [place] [address]GKRPRTS-XPOvz [id number] IN PPP BY COAGULATION ASSAY1.28High 0.90-1.10UnMcCullough-Hyde Memorial HospitalComment on above:Result Comment: ACCCP RECOMMENDED INR [...] RANGE. CHEST 1995;108:231S-246S.Performed By: #### [id number] #### [facility] ([facility]) [address] [place], [place] [address]DYTJGSCHIAD TIME (PT) IN PPP BY COAGULATION ASSAY15.9 Seconds High12.3-14.8UnMcCullough-Hyde Memorial HospitalComment on above:Performed By: #### [id number] #### [facility] ([facility]) [address] [place], [place] [address]EXNZUTRYAN PANEL URINEon [id number]+METHAMPHETAMINE SCREEN (PRESENCE) IN URINENegativeNormalNegativeUnMcCullough-Hyde Memorial HospitalComment on above:Performed By: #### [id number] #### [facility] ([facility]) [address] [place], [place] [address]IHLXQAYFVOAX PRESENCE IN URINE BY SCREEN METHODNegativeNormal NegativeUnMcCullough-Hyde Memorial HospitalComment on above:Performed By: #### [id number] #### [facility] ([facility]) [address] [place], [place] [address]Hgtlkihzzkxrpoc Ql (U)NegativeNormalNegativeUnMcCullough-Hyde Memorial HospitalComment on above:Performed By: #### [id number] #### [facility] ([facility]) [address] [place], [place] [address]YDQKPEESPDD (PRESENCE) IN URINE BY SCREEN METHODNegativeNormal NegativeUnMcCullough-Hyde Memorial HospitalComment on above:Performed By: #### [id number] #### [facility] ([facility]) [address] [place], [place] [address]Eguatba Ql (U)NegativeNormalNegativeUnMcCullough-Hyde Memorial HospitalComment on above:Performed By: #### [id number] #### [facility] ([facility]) [address] [place], [place] [address]USAWQCBQE (PRESENCE) IN URINE BY SCREEN METHODNegativeNormal NegativeUnMcCullough-Hyde Memorial HospitalComment on above:Performed By: #### [id number] #### [facility] ([facility]) [address] [place], [place] [address]BEYZZUY (PRESENCE) IN URINE BY SCREEN METHODPositiveAbnormal NegativeUnMcCullough-Hyde Memorial HospitalComment on above:Performed By: #### [id number] #### [facility] ([facility]) [address] [place], [place] [address]GNMWXGZWHGJVF PRESENCE IN URINE BY SCREEN METHODNegativeNormal NegativeUnMcCullough-Hyde Memorial HospitalComment on above:Performed By: #### [id number] #### [facility] ([facility]) [address] [place], [place] [address]Wbumyvkwyakq Screen Ql (U)NegativeNormalNegativeUnMcCullough-Hyde Memorial HospitalComment on above:Performed By: #### [id number] #### [facility] ([facility]) [address] [place], [place] [address]YRBTVHRKV ANTIDEPRESSANTS (PRESENCE) IN URINENegativeNormal NegativeMercy Health St. Vincent Medical CenterComment on above:Performed By: #### [id number] #### [facility] ([facility]) [address] [place], [place] [address]XTMEAFWK Ion 74-40-3865Mnkdagvm I.cardiac [Mass/Vol]0.01 ng/mL Normal0.00-0.04UnMcCullough-Hyde Memorial HospitalComment on above:Performed By: #### [id number] #### [facility] ([facility]) [address] [place], [place] [address]AYWT AND SCREENon [id number] SCREENNegativeNormalUniOhio Valley HospitalComment on above:Performed By: #### [id number] #### [facility] ([facility]) [address] [place] [place], [place] [address]LZE group Nom (Bld)ANormalUniversadena regional medical center of [facility] Comment on above:Performed By: #### [id number] #### [facility] ([facility]) [address] [place], [place] [address]UH TYPE IN BLOODPositiveNormalUniversadena regional medical center of Faith Community HospitalComment on above:Performed By: #### [id number] #### [facility] ([facility]) [address] [place], [place] [address]KVCCEMNMJKke 35-14-1019FSERCKPSY, TOTAL PRESENCE IN URINE NegativeNormalNegativeMercy Health St. Vincent Medical CenterComment on above:Order Comment: Microscopics not performed on urines with negative chemical reactions unless requested on original order.Performed By: #### [id number] ####[facility] ([facility])[address] [place], [place] [address]Fytzjjx (U)ClearNormalClear [facility] Vincent Medical CenterComment on above:Order Comment: Microscopics not performed on urines with negative chemical reactions unless requested on original order.Performed By: #### [id number] ####[facility] ([facility])[address] [place], [place] [address]Kgdor (U)YellowNormalColorless, Yellow, Light-YellowUnMcCullough-Hyde Memorial HospitalComment on above:Order Comment: Microscopics not performed on urines with negative chemical reactions unless requested on original order.Performed By: #### [id number] ####[facility] ([facility])[address] [place], [place] [address]NBQHMGC (MG/DL) IN URINENormalNormal NormalUnMcCullough-Hyde Memorial HospitalComment on above:Order Comment: Microscopics not performed on urines with negative chemical reactions unless requested on original order.Performed By: #### [id number] ####[facility] ([facility])[address], [place] [address]LNITZZJVZQ PRESENCE IN URINENegative NormalNegativeUnMcCullough-Hyde Memorial HospitalComment on above:Order Comment: Microscopics not performed on urines with negative chemical reactions unless requested on original order.Performed By: #### [id number] ####[facility] ([facility])[address], [place] [address]Zzbnoir Ql (U)NegativeNormalNegative [facility] Vincent Medical CenterComment on above:Order Comment: Microscopics not performed on urines with negative chemical reactions unless requested on original order.Performed By: #### [id number] ####[facility] ([facility])[address], [place] [address]OPRCVHYON ESTERASE PRESENCE IN URINE BY TEST STRIP NegativeNormalNegativeUnMcCullough-Hyde Memorial HospitalComment on above:Order Comment: Microscopics not performed on urines with negative chemical reactions unless requested on original order.Performed By: #### [id number] ####[facility] ([facility])[address] [place], [place] [address]RJQNTKC PRESENCE IN URINENegative NormalNegativeMercy Health St. Vincent Medical CenterComment on above:Order Comment: Microscopics not performed on urines with negative chemical reactions unless requested on original order.Performed By: #### [id number] ####[facility] ([facility])[address] [place], [place] [address]yG (U)6.0 [pH]Normal5.0-8.0UnMcCullough-Hyde Memorial HospitalComment on above:Order Comment: Microscopics not performed on urines with negative chemical reactions unless requested on original order.Performed By: #### [id number] ####[facility] ([facility])[address] [place], [place] [address]Paiwbln (U) [Mass/Vol]NegativeNormalNegative [facility] Vincent Medical CenterComment on above:Order Comment: Microscopics not performed on urines with negative chemical reactions unless requested on original order.Performed By: #### [id number] ####[facility] ([facility])[address] [place], [place] [address]Xdxcgwfx gravity (U) [Rel density]1.050High 1.010-1.030UnMcCullough-Hyde Memorial HospitalComment on above:Order Comment: Microscopics not performed on urines with negative chemical reactions unless requested on original order.Performed By: #### [id number] ####[facility] ([facility])[address] [place], [place] [address]NVTUGXKHCSPV (MG/DL) IN URINENormal NormalNormalUniversJ.W. Ruby Memorial HospitalComuniversity of michigan health on above:Order Comment: Microscopics not performed on urines with negative chemical reactions unless requested on original order.Performed By: #### [id number] ####[facility] ([facility])[address] [place], [place] [address]UJOAAQF D 25 HYDROXYon 09-23-2024 CALCIDIOL (25 [place] VITAMIN D3) (NG/ML) IN SER/PLAS42.6 ng/vUTxhpgg40.0-80.[address] Vincent Medical CenterComment on above:Result Comment: >80.0 Toxicity possiblePerformed By: #### [id number] #### [facility] ([place]) [address] [place], [place] [address]Urqoeavkxck Wound Cultureon 29-50-3118Wmqizvvzayq Wound Culture ORGANISM: Methicillin Resis Staph Aureus [...] RESISTANT TO ALL B-LACTAM DRUGS. PERFORMED BY: [place] [address] PATHOLOGIST E BUSINESS MANAGER STEVE ANGEL M.D.[facility] Physician GroupComment on above: Performed By: #### CUSUP #### [facility] [address] [place] [address] USACT CSPINE WO CONon [id number] BARIINE WO CONEXAM: CT BARIINE WO CON [...] Electronically authenticated by: ANGEL SAID Date: 2022-12-06 06:37[facility] HospitalCT FACIAL BONES WO CONon [id number] FACIAL BONES WO CONEXAM: CT FACIAL BONES [...] Electronically authenticated by: ANGEL SAID Date: 2022-12-06 06:41NoOur Lady of Mercy HospitalCT HEAD WO CONon [id number] HEAD WO CONEXAM: CT HEAD WO CON [...] Electronically authenticated by: ANGEL SAID Date: 2022-12-06 06:39[facility] HospitalXR ELBOW RT MIN 3 VIEWSon [id number] ELBOW RT MIN 3 VIEWS Exam: Radiographs: XR ELBOW RT MIN 3 VIEWS Reason for exam: Elbow pain Comparison: None IMPRESSION: Right elbow degenerative changes. Olecranon spur. Remainder of the right elbow is unremarkable. Electronically authenticated by: MICHAEL CASANOVA Date: 2022-12-06 07:22NoOur Lady of Mercy HospitalXR FOREARM RT 2Von [id number] FOREARM RT 2VExam: Radiographs: XR FOREARM RT 2V Reason for exam: Forearm pain Comparison: None IMPRESSION: Mild degenerative changes in the right elbow and wrist. Right forearm is otherwise unremarkable. Electronically authenticated by: MICHAEL CASANOVA Date: 2022-12-06 08:07NoOur Lady of Mercy HospitalPSA, FREE AND TOTAL RATIOon 12-03-2022% Free PSA9.0 %NormalThe [facility] Medical CenterComment on above:Result Comment: The table [...] men.Performed By: #### [id number] #### [facility] [address] [place] [address] Dr. Shabnam RaeFormerly [facility] specific Ag [Mass/Vol]5.9 ng/mLCritically high0.0-4.0The [facility] CenterComment on above:Result Comment: Francheska ECLIA methodology. . According to the [employer], Serum PSA should decrease and [...] disease.Performed By: #### PSAFREE #### [facility] [address] [place] [address] Dr. Shabnam RaePSA, Free0.53 ng/mLNormalN/AThe [facility] CenterComment on above:Result Comment: Francheska ECLIA methodology.Performed By: #### PSAFREE #### [facility] [address] [place] [address] Dr. Shabnam RaeINSULINon 61-54-8610Rpnrwqt13.2 uIU/mLNormal2.6-24.9The [facility] CenterComment on above:Performed By: #### PSASC #### [facility] [address] [place] [address] Dr. Shabnam RaeTESTOSTERONE, TOTALon 50-32-4296Nrrrrvokeeua [Mass/Vol]256 ng/dL Critically cmm669-863Cqy [facility] CenterComment on above:Result Comment: Adult male reference interval is based on a population of healthy nonobese males (BMI <30) between 19 and 39 years old. Dima et.al. JCEM 2017,102;1617-0787. PMID: [id number].Performed By: #### PSASC #### [facility] [address] [place] [address] Dr. Shabnam Dunham AUTO DIFFon 91-61-6918TJBL #0.1 103/ulNormal0.0-0.1[facility] HospitalComment on above:Performed By: #### PSASC #### [facility] [address] [place] [address] Dr. Shabnam RaeBasophils/100 WBC (Bld)1.0 %Normal0.2-2.0The [facility] Comment on above:Performed By: #### PSASC #### [facility] [address] [place] [address] Dr. Shabnam Rivera #0.1 103/ulNormal0.0-0.7The [facility] Medical CenterComment on above: Performed By: #### PSASC #### [facility] [address] [place] [address] Dr. Shabnam Samosinophils/100 WBC (Bld)1.8 %Normal0.9-7.0[facility] Comment on above:Performed By: #### PSASC #### [facility] [address] [place] [address] Dr. Shabnam Samrythrocyte distribution width (RBC) [Ratio]14.8 %Rzlmfv78.0-15.0 The [facility] CenterComment on above:Performed By: #### PSASC #### [facility] [address] [place] [address] Dr. Shabnam RaeHematocrit (Bld) [Volume fraction]49.9 %Qwoswz53.0-54.0The [facility] CenterComment on above:Performed By: #### PSASC #### [facility] [address] [place] [address] Dr. Shabnam RaeHemoglobin (Bld) [Mass/Vol]16.0 g/wLXsvair31.0-18.0The [facility] CenterComment on above:Performed By: #### PSASC #### [facility] [address] [place] [address] Dr. Shabnam Hayward #0.04 10e3/ulCritically high0.00-0.03[facility] Comment on above:Performed By: #### PSASC #### [facility] [address] [place] [address] Dr. Shabnam Hayward %0.6 %Critically high0.0-0.5ThCleveland Clinic Marymount HospitalComment on above:Performed By: #### PSASC #### [facility] [address] [place] [address] Dr. Shabnam PandyaH #1.0 103/ulCritically low1.2-3.8The [facility] Comment on above:Performed By: #### PSASC #### [facility] [address] [place] [address] Dr. Shabnam Diazmphocytes/100 WBC (Bld)16.2 %Critically low20.5-60.0The [facility] CenterComment on above:Performed By: #### PSASC #### [facility] [address] [place] [address] Dr. Shabnam Daniel DIFF REQNONormalThe [facility] Medical CenterComment on above: Performed By: #### PSASC #### [facility] [address] [place] [address] Dr. Shabnam Nava (RBC) [Entitic mass]27.7 xnEmpinn19.9-34.0The [facility] CenterComment on above:Performed By: #### PSASC #### [facility] [address] [place] [address] Dr. Shabnam Nava (RBC) [Mass/Vol]32.1 g/ePYlgfvj70.9-35.2The [facility] CenterComment on above:Performed By: #### PSASC #### [facility] [address] [place] [address] Dr. Shabnam Nava (RBC) [Entitic vol]86.3 nJVwtdyi42.0-94.0The [facility] CenterComment on above:Performed By: #### PSASC #### [facility] [address] [place] [address] Dr. Shabnam Mcfarland #0.5 103/ulNormal0.3-0.8The [facility] Medical CenterComment on above:Performed By: #### PSASC #### [facility] [address] [place] [address] Dr. Shabnam Brunnerocytes/100 WBC (Bld)7.6 %Normal1.7-12.0The [facility] Comment on above:Performed By: #### PSASC #### [facility] [address] [place] [address] Dr. Shabnam Medrano #4.6 103/ulNormal1.4-6.5The [facility] CenterComment on above:Performed By: #### PSASC #### [facility] [address] [place] [address] Dr. Shabnam Larautrophils/100 WBC (Bld)72.8 %Ukunmt66.0-75.0The [facility] CenterComment on above:Performed By: #### PSASC #### [facility] [address] [address] [address] Shabnam Miranda mean volume (Bld) [Entitic vol]9.8 fLNormal9.5-13.5The [facility] Medical CenterComment on above:Performed By: #### PSASC #### [facility] [address] [address] [address] Shabnam RaePLT203 103/beWbhytv550-706Wdd [facility] CenterComment on above: Performed By: #### PSASC #### [facility] [address] [place] [address] Dr. Shabnam RaeRBC5.78 106/ulNormal4.70-6.10The [facility] CenterComment on above:Performed By: #### PSASC #### [facility] [address] [place] [address] Dr. Shabnam RaeWBC6.3 103/ulNormal4.0-11.0The [facility] CenterComment on above: Performed By: #### PSASC #### [facility] [address] [place] [address] Dr. Shabnam RaeFRPRISCILLA THYROXINE INDEX T7on 55-02-9197KTH1.81Ydvuzr6.30-4.50The [facility] CenterComment on above:Performed By: #### TSH, CMP, LIPID, T7, URIC #### [facility] [address] [address] [address] Shabnam RaeT3U33.0 %Jjspcq57.0-40.0The [facility] Medical CenterComment on above: Performed By: #### TSH, CMP, LIPID, T7, URIC #### [facility] [address] [address] [address] Shabnam RaeT4 [Mass/Vol]6.20 ug/dLNormal4.50-12.10The [facility] Comment on above:Performed By: #### TSH, CMP, LIPID, T7, URIC #### [facility] [address] [address] [address] Shabnam RaeGLYCOHEMOGLOBIN A1Con 31-63-0593KYA RECOMMENDATIONSEE BELOWNormal The [facility] Medical CenterComment on above:Result Comment: ADA RECOMMENDED LIMIT 4.0 - 6.0 ADA THERAPEUTIC TARGET < 7.0 ACTION SUGGESTED > 7.0Performed By: #### PSASC #### [facility] [address] [place] [address] Dr. Shabnam RaeGlucose [Mass/Vol]114 mg/dLNoOur Lady of Mercy HospitalComment on above:Performed By: #### PSASC #### [facility] [address] [place] [address] Dr. Shabnam RaeHbA1c (Bld) [Mass fraction]5.6 %Normal4.5-6.2The [facility] CenterComment on above:Performed By: #### PSASC #### [facility] [address] [place] [address] Dr. Shabnam RaeLIPID PROFILEon 42-82-6041MQGK-HDL RATIO NORMSEE [facility] CenterComment on above:Result Comment: 3.3 - 4.4 LOW RISK 4.4 - 7.1 AVERAGE RISK 7.1 - 11.0 MODERATE RISK >11.0 HIGH RISKPerformed By: #### TSH, CMP, LIPID, T7, URIC #### [facility] [address] [place] [address] Dr. Shabnam Mckeonesterol [Mass/Vol]176 mg/dLNormal<=200The [facility] Comment on above:Performed By: #### TSH, CMP, LIPID, T7, URIC #### [facility] [address] [address] [address] Shabnam RaeCholesterol in HDL [Mass/Vol]48 mg/pLXcabnv52-42Dxq [facility] CenterComment on above:Performed By: #### TSH, CMP, LIPID, T7, URIC #### [facility] [address] [place] [address] Dr. Shabnam Mckeonesterol in LDL [Mass/Vol]108.2 mg/dLNoOur Lady of Mercy HospitalComment on above:Performed By: #### TSH, CMP, LIPID, T7, URIC #### [facility] [address] [address] [address] Shabnam RaeCholesterol.total/Cholesterol in HDL [Mass ratio]3.7 {ratio} NormalThe [facility] Medical CenterComment on above:Performed By: #### TSH, CMP, LIPID, T7, URIC #### [facility] [address] [address] [address] Shabnam Hanley NORMAL> or = 60 mg/dl - LOW CARDIOVASCULAR RISK <40 mg/dl - HIGH CARDIOVASCULAR RISKMansfield HospitalComment on above:Performed By: #### TSH, CMP, LIPID, T7, URIC #### [facility] [address] [address] [address] Shabnam RaeLDL CALC NORMALSEE BELOWMansfield HospitalComment on above:Result Comment: <100 mg/dl OPTIMAL 100 - 129 mg/dl NEAR OR ABOVE OPTIMAL 130 - 159 mg/dl BORDERLINE HIGH 160 - 189 mg/dl HIGH >190 mg/dl VERY HIGH Performed By: #### TSH, CMP, LIPID, T7, URIC #### [facility] [address] [address] [address] Shabnam RaeTriglyceride [Mass/Vol]99 mg/dLNormal<=150The [facility] Comment on above:Performed By: #### TSH, CMP, LIPID, T7, URIC #### [facility] [address] [address] [address] Shabnam RaeVLDL CALC19.8 mg/dLNoOur Lady of Mercy HospitalComment on above: Performed By: #### TSH, CMP, LIPID, T7, URIC #### [facility] [address] [address] [address] Shabnam RaePROF 14(COMP METB)on 69-93-5394Gjsmyow [Mass/Vol]4.1 g/dLNormal 3.4-5.0The [facility] Medical Centerment on above:Performed By: #### TSH, CMP, LIPID, T7, URIC #### [facility] [address] [address] [address] Shabnam RaeAlbumin/Globulin [Mass ratio]1.1 {ratio}NormalThe [facility] CenterComment on above:Performed By: #### TSH, CMP, LIPID, T7, URIC #### [facility] [address] [place] [address] Dr. Shabnam Rizzo [Catalytic activity/Vol]101 U/ODruusb65-385Bre [facility] CenterComment on above:Performed By: #### TSH, CMP, LIPID, T7, URIC #### [facility] [address] [place] [address] Dr. Shabnam Sofia [Catalytic activity/Vol]26 U/UHkixax76-66Mve [facility] CenterComment on above:Performed By: #### TSH, CMP, LIPID, T7, URIC #### [facility] [address] [place] [address] Dr. Shabnam Johnsonon gap [Moles/Vol]10.1 mmol/LNormalThe [facility] Comment on above:Performed By: #### TSH, CMP, LIPID, T7, URIC #### [facility] [address] [place] [address] Dr. Shabnam Jean [Catalytic activity/Vol]19 U/WXhqvkx04-28Wfu [facility] CenterComment on above:Performed By: #### TSH, CMP, LIPID, T7, URIC #### [facility] [address] [place] [address] Dr. Shabnam RaeBilirubin [Mass/Vol]0.8 mg/dLNormal0.2-1.0[facility] Comment on above:Performed By: #### TSH, CMP, LIPID, T7, URIC #### [facility] [address] [place] [address] Dr. Shabnam RaeCalcium [Mass/Vol]9.5 mg/dLNormal8.5-10.1[facility] Comment on above:Performed By: #### TSH, CMP, LIPID, T7, URIC #### [facility] [address] [place] [address] Dr. Shabnam RaeChloride [Moles/Vol]102 mmol/IQiaxkb32-589Wfz [facility] Comment on above:Performed By: #### TSH, CMP, LIPID, T7, URIC #### [facility] [address] [place] [address] Dr. Shabnam RaeCO2 [Moles/Vol]32.4 mmol/LCritically high21.0-32.0The [facility] CenterComment on above:Performed By: #### TSH, CMP, LIPID, T7, URIC #### [facility] [address] [place] [address] Dr. Shabnam RaeCreatinine [Mass/Vol]1.00 mg/dLNormal0.70-1.30The [facility] CenterComment on above:Performed By: #### TSH, CMP, LIPID, T7, URIC #### [facility] [address] [place] [address] Dr. Shabnam SamGFR-AF BELIZEAN>60Normal>=60The [facility] Medical CenterComment on above:Performed By: #### TSH, CMP, LIPID, T7, URIC #### [facility] [address] [place] [address] Dr. Shabnam SamGFR-NON AF BELIZEAN>60Normal>=60The [facility] Medical CenterComment on above:Performed By: #### TSH, CMP, LIPID, T7, URIC #### [facility] [address] [place] [address] Dr. Shabnam RaeGlobulin (S) [Mass/Vol]3.8 g/dLNormalThe [facility] CenterComment on above:Performed By: #### TSH, CMP, LIPID, T7, URIC #### [facility] [address] [place] [address] Dr. Shabnam RaeGlucose [Mass/Vol]94 mg/oGLocpoi53-427NsqHenry County Hospital Comment on above:Performed By: #### TSH, CMP, LIPID, T7, URIC #### [facility] [address] [place] [address] Dr. Shabnam RaePotassium [Moles/Vol]3.5 mmol/LNormal3.5-5.1The [facility] Comment on above:Performed By: #### TSH, CMP, LIPID, T7, URIC #### [facility] [address] [place] [address] Dr. Shabnam RaeProtein [Mass/Vol]7.9 g/dLNormal6.4-8.2The [facility] Comment on above:Performed By: #### TSH, CMP, LIPID, T7, URIC #### [facility] [address] [place] [address] Dr. Shabnam RaeSodium [Moles/Vol]141 mmol/RPpxstw456-071Kzw [facility] Comment on above:Performed By: #### TSH, CMP, LIPID, T7, URIC #### [facility] [address] [place] [address] Dr. Shabnam RaeUrea nitrogen [Mass/Vol]15.0 mg/dLNormal7.0-18.0The [facility] CenterComment on above:Performed By: #### TSH, CMP, LIPID, T7, URIC #### [facility] [address] [place] [address] Dr. Shabnam RaeUrea nitrogen/Creatinine [Mass ratio]15.0 mg/mgNormalThe [facility] CenterComment on above:Performed By: #### TSH, CMP, LIPID, T7, URIC #### [facility] [address] [place] [address] Dr. Shabnam GoldbergHomeaghan 77-05-2083XVQ6.504 uIU/mLNormal0.358-3.740The [facility] CenterComment on above:Performed By: #### TSH, CMP, LIPID, T7, URIC #### [facility] [address] [place] [address] Dr. Shabnam RaeURIC ACID SERUMon 69-53-8622Sdopd [Mass/Vol]6.9 mg/dLNormal 3.5-7.2The [facility] CenterComment on above:Performed By: #### TSH, CMP, LIPID, T7, URIC #### [facility] [address] [place] [address] Dr. Shabnam RaeTESTOSTERONE, TOTALon 24-11-3585Ceoxgmksrmuf [Mass/Vol]244 ng/dL Critically wli777-090Soe [facility] CenterComment on above:Result Comment: Adult male reference interval is based on a population of healthy nonobese males (BMI <30) between 19 and 39 years old. Dima, et.al. [facility] 2017,102;2052-2427. PMID: [id number].Performed By: #### PSAFREE #### [facility] [address] [place] [address] Dr. Shabnam RaeTESTOSTERONE, FREE,DIRECT, TOTALon 39-83-5229Zxyd Testosterone(Direct)2.1 pg/mLCritically low7.2-24.0Henry [facility] HospitalComment on above:Result Comment: Performed at: BNPerformed By: #### CVDTBH #### [facility] [address] [place] [address] Dr. Shabnam RaeTestosterone [Mass/Vol]252 ng/dLCritically eye610-661Fvw [facility] CenterComment on above:Result Comment: Adult male reference interval is based on a population of healthy nonobese males (BMI <30) between 19 and 39 years old. Travbrad, et.al. [facility] 2017,102;4557-9660. PMID: [id number]. Performed at: CBPerformed By: #### CVDTBH #### [facility] [address] [place] [address] Dr. Shabnam Ashford 03-96-8202Bzkta [id number]#1.00CD:127[facility] Centercreenson 16-93-9412Xbncicr [id number]#1.00CD:127NoKettering Health [id number]#1.00CD:127[facility] CenterUrology Office/Clinic Noteon 88-42-0047Mmuobrb Office/Clinic NoteChief Complaint referred Hydrocele HPI Staff [...] Ongoing No qualifying data (more content not included)...[facility] Medical CenterComment on above:Result Comment: Electronically Signed By: Viola Grullon MD\.br\Date and Time Signed: 02/26/22 00:20EDT\.br\Electronically Co-Signed By: Helen Leung\.br\Date and Time Co-Signed: 02/25/22 11:16 EDTAmbulatory Visit Summaryon 96-20-6816Kfxcpfbted Visit Summary MATTY GARCES :1970 Visit Date:02/25/2022 Ambulatory Visit Instructions Your Diagnosis Hydrocele Varicocele BPH without urinary obstruction Tests Performed Urnls Dip Stick Auto w/o Microscopy POC 44224 Your Care Team Attending Physician - Viola [...] Urnls Dip Stick Auto w/o Microscopy POC 87316 (02/25/2022) Bilirubin Urine Dipstick - Negative Blood Urine Dipstick - Negative Glucose Urine Dipstick - Negative Ketones Urine Dipstick - Negative Leukocytes Urine Dipstick - Negative Nitrite Urine Dipstick - Negative Protein Urine Dipstick - Negative Specific [place] Urine Dipstick - >=1.030 Urine Appearance Urine [...] the hydrocele for any changes. ? Take isaa-hew-uizphxj and prescription medicines only as told by [...] is not intended t (more content not included)...[facility] Educationon 06-94-3515Bfhcacz EducationUrology Hydrocele, Adult A hydrocele is a [...] the hydrocele for any changes. ? Take oqtj-eqq-axawdkq and prescription medicines only as told by [...] Reviewed: 09/10/2018 Elsevier Patient Education ? 2019 [employer].[facility] ED Note-Physicianon 77-70-6122YJ Note-Physician [id number]#1.00CD:[address] [place], [place] [address]RAD - Ultrasound Reporton 76-95-2538UYR - Ultrasound Report [id number]#1.00CD:[address] [place], [place] [address]RAD - CT Reporton 77-29-2025EEJ - CT Report [id number]#1.00CD:[address] [place], [place] [address]RAD - CT [id number]#1.00CD:[address] [place], [place] [address]CBC AUTO DIFFon 95-53-1515COVL #0.0 103/ulNormal 0.0-0.1The [facility] CenterComment on above:Performed By: #### PSAFRPRISCILLA #### [facility] [address] [address] [address] Shabnam Benavidezphils/100 WBC (Bld)0.6 %Normal0.2-2.0The [facility] Comment on above:Performed By: #### PSAFREE #### [facility] [address] [address] [address] Shabnam Rivera #0.1 103/ulNormal0.0-0.7The [facility] CenterComment on above: Performed By: #### PSAFREE #### [facility] [address] [place] [address] Dr. Shabnam Samosinophils/100 WBC (Bld)2.1 %Normal0.9-7.0The [facility] Comment on above:Performed By: #### PSAFREE #### [facility] [address] [place] [address] Dr. Shabnam Samrythrocyte distribution width (RBC) [Ratio]13.1 %Ybccex93.0-15.0 The [facility] Medical CenterComment on above:Performed By: #### PSAFREE #### [facility] [address] [place] [address] Dr. Shabnam RaeHematocrit (Bld) [Volume fraction]43.1 %Ngdquc59.0-54.0The [facility] CenterComment on above:Performed By: #### PSAFREE #### [facility] [address] [place] [address] Dr. Shabnam RaeHemoglobin (Bld) [Mass/Vol]13.7 g/dLCritically low14.0-18.0The [facility] CenterComment on above:Performed By: #### PSAFREE #### [facility] [address] [place] [address] Dr. Shabnam Hayward #0.04 10e3/ulCritically high0.00-0.03The [facility] Comment on above:Performed By: #### PSAFREE #### [facility] [address] [place] [address] Dr. Shabnam Hayward %0.6 %Critically high0.0-0.5The [facility] CenterComment on above:Performed By: #### PSAFREE #### [facility] [address] [place] [address] Dr. Shabnam Gomez #0.9 103/ulCritically low1.2-3.8The [facility] Comment on above:Performed By: #### PSAFREE #### [facility] [address] [place] [address] Dr. Shabnam Diazmphocytes/100 WBC (Bld)13.1 %Critically low20.5-60.0The [facility] CenterComment on above:Performed By: #### PSAFREE #### [facility] [address] [place] [address] Dr. Shabnam Daniel DIFF REQNONormalThe [facility] CenterComment on above: Performed By: #### PSAFREE #### [facility] [address] [place] [address] Dr. Shabnam Nava (RBC) [Entitic mass]29.5 olWvgrfa27.9-34.0The [facility] CenterComment on above:Performed By: #### PSAFREE #### [facility] [address] [place] [address] Dr. Shabnam Nava (RBC) [Mass/Vol]31.8 g/yBCfhyql72.9-35.2The [facility] CenterComment on above:Performed By: #### PSAFREE #### [facility] [address] [place] [address] Dr. Shabnam Nava (RBC) [Entitic vol]92.9 yZGnvaze03.0-94.0[facility] HospitalComment on above:Performed By: #### PSAFREE #### [facility] [address] [place] [address] Dr. Shabnam Mcfarland #0.4 103/ulNormal0.3-0.8The [facility] CenterComment on above:Performed By: #### PSAFREE #### [facility] [address] [place] [address] Dr. Shabnam Burnnerocytes/100 WBC (Bld)5.4 %Normal1.7-12.0[facility] Comment on above:Performed By: #### PSAFREE #### [facility] [address] [place] [address] Dr. Shabnam Medrano #5.2 103/ulNormal1.4-6.5The [facility] CenterComment on above:Performed By: #### PSAFREE #### [facility] [address] [place] [address] Dr. Shabnam Larautrophils/100 WBC (Bld)78.2 %Critically high43.0-75.0The [facility] CenterComment on above:Performed By: #### PSAFREE #### [facility] [address] [place] [address] Dr. Shabnam Miranda mean volume (Bld) [Entitic vol]10.9 fLNormal9.5-13.5The [facility] CenterComment on above:Performed By: #### PSAFREE #### [facility] [address] [place] [address] Dr. Shabnam RaePLT153 103/rnJwoigd624-184Gaz [facility] CenterComment on above: Performed By: #### PSAFREE #### [facility] [address] [place] [address] Dr. Shabnam RaeRBC4.64 106/ulCritically low4.70-6.10The [facility] CenterComment on above:Performed By: #### PSAFREE #### [facility] [address] [place] [address] Dr. Shabnam RaeWBC6.6 103/ulNormal4.0-11.0The [facility] CenterComment on above: Performed By: #### PSAFREE #### [facility] [address] [place] [address] Dr. Shabnam Bang 40-95-9515FPQ6.9 mg/dLNormal<=1.0The [facility] Comment on above:Performed By: #### PSAFREE #### [facility] [address] [place] [address] Dr. Shabnam Ortiz 14(COMP METB)on 84-04-4669Mkknrye [Mass/Vol]3.6 g/dLNormal 3.4-5.0The [facility] CenterComment on above:Performed By: #### PSAFREE #### [facility] [address] [address] [address] Shabnam RaeAlbumin/Globulin [Mass ratio]1.0 {ratio}NormalThe [facility] CenterComment on above:Performed By: #### PSAFREE #### [facility] [address] [address] [address] Shabnam JohnstonP [Catalytic activity/Vol]114 U/MYzgpfu72-391Gjm [facility] CenterComment on above:Performed By: #### PSAFREE #### [facility] [address] [address] [address] Shabnam Sofia [Catalytic activity/Vol]26 U/SKlzdhc86-84Cvz [facility] CenterComment on above:Performed By: #### PSAFREE #### [facility] [address] [address] [address] Shabnam Johnsonon gap [Moles/Vol]9.3 mmol/LNormalThe [facility] CenterComment on above:Performed By: #### PSAFREE #### [facility] [address] [address] [address] Shabnam RaeAST [Catalytic activity/Vol]19 U/FAupavd13-39Bih [facility] CenterComment on above:Performed By: #### PSAFREE #### [facility] [address] [address] [address] Shabnam RaeBilirubin [Mass/Vol]0.5 mg/dLNormal0.2-1.0The [facility] Comment on above:Performed By: #### PSAFREE #### [facility] [address] [address] [address] Shabnam RaeCalcium [Mass/Vol]8.9 mg/dLNormal8.5-10.1The [facility] Comment on above:Performed By: #### PSAFREE #### [facility] [address] [address] [address] Shabnam RaeChloride [Moles/Vol]106 mmol/WImcnal22-901Jyx [facility] Comment on above:Performed By: #### PSAFREE #### [facility] [address] [address] [address] Shabnam RaeCO2 [Moles/Vol]30.7 mmol/AYotjoi46.0-32.0The [facility] Comment on above:Performed By: #### PSAFREE #### [facility] [address] [address] [address] Shabnam RaeCreatinine [Mass/Vol]1.15 mg/dLNormal0.70-1.30The [facility] CenterComment on above:Performed By: #### PSAFREE #### [facility] [address] [address] [address] Shabnam SamGFR-AF BELIZEAN>60Normal>=60The [facility] CenterComment on above:Performed By: #### PSAFREE #### [facility] [address] [address] [address] Shabnam SamGFR-NON AF BELIZEAN>60Normal>=60The [facility] CenterComment on above:Performed By: #### PSAFREE #### [facility] [address] [address] [address] Shabnam RaeGlobulin (S) [Mass/Vol]3.6 g/dLNormalThe [facility] CenterComment on above:Performed By: #### PSAFREE #### [facility] [address] [address] [address] Shabnam RaeGlucose [Mass/Vol]117 mg/dLCritically owcu52-365Ulj [facility] CenterComment on above:Performed By: #### PSAFREE #### [facility] [address] [address] [address] Shabnam RaePotassium [Moles/Vol]4.0 mmol/LNormal3.5-5.1The [facility] Comment on above:Performed By: #### PSAFREE #### [facility] [address] [address] [address] Shabnam RaeProtein [Mass/Vol]7.2 g/dLNormal6.1-8.2The [facility] Comment on above:Performed By: #### PSAFREE #### [facility] [address] [address] [address] Shabnam RaeSodium [Moles/Vol]142 mmol/VNenujb383-638Tny [facility] Comment on above:Performed By: #### PSAFREE #### [facility] [address] [address] [address] Shabnam RaeUrea nitrogen [Mass/Vol]15.0 mg/dLNormal7.0-18.0The [facility] CenterComment on above:Performed By: #### PSAFREE #### [facility] [address] [address] [address] Shabnam Gu nitrogen/Creatinine [Mass ratio]13.0 mg/mgNormalThe [facility] CenterComment on above:Performed By: #### PSAFREE #### [facility] [address] [address] [address] Shabnam Floyd SCROTUMon 44-80-7090HB SCROTUMEXAMINATION: US SCROTUM HISTORY: Acute pelvic pain [...] evidence of orchitis Electronically authenticated by: ALVINA CAICDEO Date: 2022-01-05 08:48NormalThBluffton [facility] AUTO DIFFon 75-71-7107QOYY #0.1 103/ulNormal0.0-0.1The [facility] CenterComment on above:Performed By: #### CBC #### [facility] [address] [address] [address] Shabnam RaeBasophils/100 WBC (Bld)0.8 %Normal0.2-2.0The [facility] Comment on above:Performed By: #### CBC #### [facility] [address] [place] [address] Dr. Shabnam Rivera #0.1 103/ulNormal0.0-0.7The [facility] CenterComment on above: Performed By: #### CBC #### [facility] [address] [place] [address] Dr. Shabnam Samosinophils/100 WBC (Bld)1.5 %Normal0.9-7.0The [facility] Comment on above:Performed By: #### CBC #### [facility] [address] [place] [address] Dr. Shabnam Samrythrocyte distribution width (RBC) [Ratio]12.8 %Gkxxcl43.0-15.0 [facility] HospitalComment on above:Performed By: #### CBC #### [facility] [address] [place] [address] Dr. Shabnam RaeHematocrit (Bld) [Volume fraction]40.3 %Critically low42.0-54.0 The [facility] CenterComment on above:Performed By: #### CBC #### [facility] [address] [place] [address] Dr. Shabnam RaeHemoglobin (Bld) [Mass/Vol]13.4 g/dLCritically low14.0-18.0The [facility] CenterComment on above:Performed By: #### CBC #### [facility] [address] [address] [address] Shabnam Hayward #0.03 10e3/ulNormal0.00-0.03The [facility] CenterComment on above:Performed By: #### CBC #### [facility] [address] [address] [address] Shabnam Hayward %0.5 %Normal0.0-0.5The [facility] CenterComment on above: Performed By: #### CBC #### [facility] [address] [address] [address] Shabnam Gomez #1.0 103/ulCritically low1.2-3.8The [facility] Comment on above:Performed By: #### CBC #### [facility] [address] [place] [address] Dr. Shabnam Pandyahocytes/100 WBC (Bld)16.4 %Critically low20.5-60.0The [facility] CenterComment on above:Performed By: #### CBC #### [facility] [address] [place] [address] Dr. Shabnam GranadoUAL DIFF REQNONormalThe [facility] CenterComment on above: Performed By: #### CBC #### [facility] [address] [place] [address] Dr. Shabnam Nava (RBC) [Entitic mass]29.5 tjNsyxns52.9-34.0The [facility] CenterComment on above:Performed By: #### CBC #### [facility] [address] [place] [address] Dr. Shabnam Nava (RBC) [Mass/Vol]33.3 g/bBYkutky86.9-35.2The [facility] CenterComment on above:Performed By: #### CBC #### [facility] [address] [place] [address] Dr. Shabnam Nava (RBC) [Entitic vol]88.8 yJYwhspm51.0-94.0The [facility] CenterComment on above:Performed By: #### CBC #### [facility] [address] [address] [address] Shabnam Mcfarland #0.6 103/ulNormal0.3-0.8The [facility] CenterComment on above:Performed By: #### CBC #### [facility] [address] [address] [address] Shabnam Brunnerocytes/100 WBC (Bld)9.6 %Normal1.7-12.0The [facility] Comment on above:Performed By: #### CBC #### [facility] [address] [place] [address] Dr. Shabnam Medrano #4.4 103/ulNormal1.4-6.5The [facility] CenterComment on above:Performed By: #### CBC #### [facility] [address] [place] [address] Dr. Shabnam Larautrophils/100 WBC (Bld)71.2 %Bcanaz26.0-75.0The [facility] CenterComment on above:Performed By: #### CBC #### [facility] [address] [place] [address] Dr. Shabnam Miranda mean volume (Bld) [Entitic vol]10.8 fLNormal9.5-13.5The [facility] CenterComment on above:Performed By: #### CBC #### [facility] [address] [place] [address] Dr. Shabnam RaePLT158 103/btClognd240-329Ary [facility] CenterComment on above: Performed By: #### CBC #### [facility] [address] [place] [address] Dr. Shabnam RaeRBC4.54 106/ulCritically low4.70-6.10The [facility] CenterComment on above:Performed By: #### CBC #### [facility] [address] [place] [address] Dr. Shabnam RaeWBC6.2 103/ulNormal4.0-11.0The [facility] CenterComment on above: Performed By: #### CBC #### [facility] [address] [address] [address] Shabnam RaeCT ABD/PELV W CONon 82-88-5749MQ ABD/PELV W CONCT ABD/PELV W CON: 01/04/2022 [...] BERNAL Date: 2022-01-04 05:19Normal The [facility] CenterCT PELVIS WO CONon [id number] PELVIS WO CONEXAMINATION: CT PELVIS WO CON [...] by: MANUEL HOUGH Date: 2022-01-04 08:54NormKettering Health HamiltonCULTURE URINEon 34-30-7166SKNYBLB URINECulture Observations: No growthNoOur Lady of Mercy HospitalComment on above:Performed By: #### PSASC #### [facility] [address] [address] [address] Shabnam Mckinney-19 PCR ([facility])on 11-02-7114RGDS-CoV-2 (COVID-19) RNA ELIJAH+probe Ql (Unsp spec)Not detectedNormalNOT DETECTEDThe [facility] Comment on above:Result Comment: When diagnostic testing is negative, the possibility of a false negative should be considered in the context of a patient's recent exposures and the presence of clinical signs and symptoms consistent with SARS-CoV-2. This test is not yet approved or cleared by the [place] Food and Drug Administration (FDA). This test was developed by [employer], [place], [place]. The performance characteristics of this test were validated by The [facility]. The results are not intended to be used as the sole means for clinical diagnosis or patient management decisions. [facility] is authorized under Clinical Laboratory [...] for this test is supported by the [place] of Health and Human Service's declaration that [...] used).Performed By: #### CVDTBH #### [facility] [address] [place] [address] Dr. Shabnam Cedillo URINE PROFILEon 03-85-6967Njiduzvzy Ql (U)NegativeNormal NEGATIVEThe [facility] CenterComment on above:Performed By: #### PSASC #### [facility] [address] [place] [address] Dr. Shabnam Haile (U)CLEARNormalCLEARThe [facility]als Parma Medical CenterComment on above: Performed By: #### PSASC #### [facility] [address] [place] [address] Dr. Shabnam Mason (U)YELLOWNormalYELLOWGreen Cross Hospital on above: Performed By: #### PSASC #### [facility] [address] [place] [address] Dr. Shabnam Plummer micrscopic examination will be performed if indicated. NormalThe [facility]als Parma Medical CenterComment on above:Performed By: #### PSASC #### [facility] [address] [address] [address] Shabnam RaeGlucose Ql (U)NegativeNormalNEGATIVEHenry County HospitalComment on above:Performed By: #### PSASC #### [facility] [address] [address] [address] Shabnam RaeHemoglobin Ql (U)NegativeNormalNEGATIVEHenry County Hospital Comment on above:Performed By: #### PSASC #### [facility] [address] [address] [address] Shabnam RaeKetones Ql (U)NegativeNormalNEGATIVEHenry County HospitalComment on above:Performed By: #### PSASC #### [facility] [address] [place] [address] Dr. Shabnam RaeLEUKOCYTESNegativeNormalNEGATIVEHenry County HospitalComment on above:Performed By: #### PSASC #### [facility] [address] [place] [address] Dr. Shabnam RaeNitrite Ql (U)NegativeNormalNEGATIVEHenry County HospitalComment on above:Performed By: #### PSASC #### [facility] [address] [place] [address] Dr. Shabnam RaepH (U)6.5 [pH]Normal5-9Henry County HospitalComment on above: Performed By: #### PSASC #### [facility] [address] [address] [address] Shabnam RaeSPEC GRAVITY1.853Rvmnpt5.005-<=1.025Henry County HospitalComment on above:Performed By: #### PSASC #### [facility] [address] [place] [address] Dr. Shabnam RaeUA PROTEINNegativeNormalNEGATIVE/ TRACEHenry County Hospital Comment on above:Performed By: #### PSASC #### [facility] [address] [place] [address] Dr. Shabnam RaeUR MICRO INDNOT INDICATEDNoalThCleveland Clinic Marymount HospitalComment on above:Performed By: #### PSASC #### [facility] [address] [place] [address] Dr. Shabnam Wubilinogen Qn (U)0.2 {Sarai'U}/dLNormal0.2 - 1.0The [facility] Medical CenterComment on above:Performed By: #### PSASC #### [facility] [address] [place] [address] Dr. Shabnam RaeLACTATE/LACTIC ACIDon 74-83-3481Xzbuxlj [Moles/Vol]1.0 mmol/L Normal0.4-2.0The [facility] Parma Medical CenterComment on above:Performed By: #### PSASC #### [facility] [address] [place] [address] Dr. Shabnam MoonF CHEM 8 (BAS METB)on 87-44-3001Dsfmq gap [Moles/Vol]10.0 mmol/LNormalThe [facility] Parma Medical CenterComment on above:Performed By: #### BMP #### [facility] [address] [place] [address] Dr. Shabnam RaeCalcium [Mass/Vol]8.5 mg/dLNormal8.5-10.1The [facility] Comment on above:Performed By: #### BMP #### [facility] [address] [place] [address] Dr. Shabnam RaeChloride [Moles/Vol]103 mmol/TRgkqcx25-851Kqg [facility] Comment on above:Performed By: #### BMP #### [facility] [address] [place] [address] Dr. Shabnam RaeCO2 [Moles/Vol]29.2 mmol/CXjcpys12.0-32.0The [facility] Comment on above:Performed By: #### BMP #### [facility] [address] [place] [address] Dr. Shabnam RaeCreatinine [Mass/Vol]1.25 mg/dLNormal0.70-1.30The [facility] CenterComment on above:Performed By: #### BMP #### [facility] [address] [place] [address] Dr. Shabnam SamGFR-AF BELIZEAN>60Normal>=60The [facility] Medical CenterComment on above:Performed By: #### BMP #### [facility] [address] [place] [address] Dr. Shabnam SamGFR-NON AF BELIZEAN>60Normal>=60The [facility] CenterComment on above:Performed By: #### BMP #### [facility] [address] [place] [address] Dr. Shabnam RaeGlucose [Mass/Vol]132 mg/dLCritically elep80-695Gkk [facility] CenterComment on above:Performed By: #### BMP #### [facility] [address] [place] [address] Dr. Shabnam RaePotassium [Moles/Vol]3.2 mmol/LCritically low3.5-5.1The [facility] Medical CenterComment on above:Performed By: #### BMP #### [facility] [address] [place] [address] Dr. Shabnam RaeSodium [Moles/Vol]139 mmol/YAafzfd186-417Khx [facility] Comment on above:Performed By: #### BMP #### [facility] [address] [place] [address] Dr. Shabnam RaeUrea nitrogen [Mass/Vol]19.0 mg/dLCritically high7.0-18.0The [facility] Medical CenterComment on above:Performed By: #### BMP #### [facility] [address] [place] [address] Dr. Shabnam RaeUrea nitrogen/Creatinine [Mass ratio]15.2 mg/mgNormalThe [facility] Parma Medical CenterComment on above:Performed By: #### BMP #### [facility] [address] [place] [address] Dr. Shabnam RaeCERVICAL SPINE 2 OR 3 [facility] [id number] SPINE 2 OR 3 [facility] Department of Radiology [address] [place] [phone] Patient Name: MATTY GARCES : 1970 [...] findings. Electronically signed by:Bernice Hoyt. Transcribed by: [id number], User Resident: RADHA CHIN Electronically Signed by: BERNICE HOYT @ 07/06/2019 08:52 PM I personally read this/these film(s) with this residentCherrington HospitalComment on above:Order Comment: , STAT READ , STAT READ , , , Ordering Provider - LUCIANO DAVIS MD , CERVICAL SPINE 2 OR 3 [facility] [id number] SPINE 2 OR 3 [facility] Department of [facility]iology [address] [place] [phone] Patient Name: MATTY GARCES : 1970 [...] FALLS Exam: CERVICAL SPINE 2 OR 3 [facility] CERVICAL SPINE 2 OR 3 [facility] 04/06/2019 7:28 AM EDT SIGNS [...] study. Electronically signed by:Bernice Hoyt. Transcribed by: [email or web address], User Resident: Electronically Signed by: BERNICE HOYT @ 04/06/2019 04:40 [facility] CenterComment on above:Order Comment: AP/LAT, ODONTOID PLEASE DO SWIMMER'S VIEW FOLLOW UP HARDWARE AND ALIGNMENT, S/P ACDF, RECENT FALLSCERVICAL SPINE 2 OR 3 [facility] [id number] SPINE 2 OR 3 [facility] Department of Radiology [address] [place] [phone] Patient Name: MATTY GARCES : 1970 [...] findings. Electronically signed by:Bella King. Transcribed by: [email or web address], User Resident: KENNETH DUVAL Electronically Signed by: BELLA KING @ 02/20/2019 11:53 AM I personally read this/these film(s) with this residentCherrington HospitalComment on above:Order Comment: C-SPINE 2 OR 3 VIEW POSTOP, EVALUATION HARDWARE AN ALIGNMENTBASIC METABOLIC PANELon 37-06-6280Mbjbdls [Mass/Vol]9.2 mg/dLNormal8.6-10.3The [facility] Vincent Medical CenterComment on above:Order Comment: No: Do not add to previous drawPerformed By: #### [id number] #### [facility] [address] [place] [address], USAChloride [Moles/Vol]101 mmol/EWjisqf49-763Byw [facility] Medical CenterComment on above:Order Comment: No: Do not add to previous drawPerformed By: #### 52392 #### [facility] [address] [place] [address], USACO2 [Moles/Vol]26 mmol/BMnrzfm71-45Gbu [facility] Medical CenterComment on above:Order Comment: No: Do not add to previous draw Performed By: #### 89100 #### [facility] [address] [place] [address], USACreatinine [Mass/Vol]1.02 mg/dLNormal0.70-1.30The [facility] Medical CenterComment on above:Order Comment: No: Do not add to previous drawPerformed By: #### 99943 #### [facility] [address] [place] [address], USAGFR/1.73 sq M predicted among blacks MDRD (S/P/Bld) [Vol rate/Area]mL/min/{1.73_m2}Normal>60The [facility] Comment on above:Order Comment: No: Do not add to previous drawPerformed By: #### 71415 #### [facility] [address] [place] [address], USAGFR/1.73 sq M predicted among non-blacks MDRD (S/P/Bld) [Vol rate/Area]mL/min/{1.73_m2}Normal>60The [facility] Comment on above:Order Comment: No: Do not add to previous drawPerformed By: #### 79510 #### [facility] [address] [place] [address], USAGlucose [Mass/Vol]124 mg/bUWwfg27-014Lws [facility] Medical CenterComment on above:Order Comment: No: Do not add to previous drawPerformed By: #### 43043 #### [facility] [address] [place] [address], USAPotassium [Moles/Vol]3.9 mmol/LNormal3.5-5.1The [facility] Medical CenterComment on above:Order Comment: No: Do not add to previous drawPerformed By: #### 71862 #### [facility] [address] [place] [address], USASodium [Moles/Vol]137 mmol/LDwhtdd446-000Tae [facility] Medical CenterComment on above:Order Comment: No: Do not add to previous drawPerformed By: #### 31565 #### [facility] [address] [place] [address], USAUrea nitrogen [Mass/Vol]15 mg/dLNormal7-25The [facility] Medical CenterComment on above:Order Comment: No: Do not add to previous drawPerformed By: #### 79155 #### [facility] [address] [place] [address], USACBC COMPLETE BLOOD COUNTon 91-95-6068Zbunirepatk distribution width (RBC) [Ratio]13.9 %Wypjmz09.5-15.0The [facility] Medical CenterComment on above:Order Comment: No: Do not add to previous draw Performed By: #### 23022 #### [facility] [address] [place] [address], USAHematocrit (Bld) [Volume fraction]50.0 %Ligzuv26.0-50.0The [facility] Medical CenterComment on above:Order Comment: No: Do not add to previous drawPerformed By: #### 76038 #### [facility] [address] [place] [address], USAHemoglobin (Bld) [Mass/Vol]16.0 g/tWUqgjck90.0-17.0The [facility] Medical CenterComment on above:Order Comment: No: Do not add to previous drawPerformed By: #### 36740 #### [facility] [address] [place] [address], [facility] VAL[facility] HOSPITALMCH (RBC) [Entitic mass]27.5 vlSkltuw10.0-33.0The [facility] Medical CenterComment on above:Order Comment: No: Do not add to previous drawPerformed By: #### 34359 #### [facility] [address] [place] [address], [facility] VAL[facility] HOSPITALMCHC (RBC) [Mass/Vol]32.0 g/vCDpiaui87.0-35.0The [facility] Medical CenterComment on above:Order Comment: No: Do not add to previous drawPerformed By: #### 60819 #### [facility] [address] [place] [address], M[facility] VALLEY HOSPITALMCV (RBC) [Entitic vol]85.9 eRUikzwa37.0-98.0The [facility] Medical CenterComment on above:Order Comment: No: Do not add to previous drawPerformed By: #### 62672 #### [facility] [address] [place] [address], USANucleated RBC/100 WBC (Bld) [Ratio]0 %Normal0-0The [facility] Medical CenterComment on above:Order Comment: No: Do not add to previous drawPerformed By: #### 22114 #### [facility] [address] [place] [address], USAPLAT KQW800 10*3/jRFuqyff550-383Dgd [facility] CenterComment on above:Order Comment: No: Do not add to previous draw Performed By: #### 56727 #### [facility] [address] [place] [address], USARBC (Bld) [#/Vol]5.82 10*6/uLHigh4.20-5.70The [facility] Medical CenterComment on above:Order Comment: No: Do not add to previous drawPerformed By: #### 63210 #### [facility] [address] [place] [address], USAWBC (Bld) [#/Vol]15.85 10*3/uLHigh4.00-10.60The [facility] Medical CenterComment on above:Order Comment: No: Do not add to previous drawPerformed By: #### 94637 #### [facility] [address] [place] [address], [facility]LEY HOSPITALOperative Reporton [id number] ReportMR#: [id number] [facility] Pt. Name: Matty Garces Room #: [id number] Discharge Date: Birthdate: 1970 OPERATIVE REPORT DATE OF SURGERY: 01/30/2019 SURGEON: Luciano Davis M.D. 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 POSTOPERATIVE DIAGNOSIS: Failed instrumentation at C6-7 on the right. S[employer] ARCHITECT: ADENIKE Lugo. ANESTHESIA: Endotracheal, Hogan. PROCEDURES: Redo [...] Davis M.D. Date Trans: 01/31/2019 02:31 Eze/sasha DN_JN:[id number] cc: Venus Jaeger M.D. [address] [place] [address]AsconmCryCherrington HospitalCERVICAL SPINE 2 OR 3 Son [id number] SPINE 2 OR [address] [facility]An[facility]Ohio [facility] Department of Radiology [address] [place] [phone] Patient Name: MATTY GARCES : 1970 [...] documentation Electronically signed by:Justus Murphy. Transcribed by: [id number], User Resident: Electronically Signed by: JUSTUS MURPHY @ 01/30/2019 04:[address] Vincent Medical CenterComment on above:Order Comment: C6-7 ACDFPOC GLUCOSE LABon 21-72-1863Ymwdycs [Mass/Vol]106 mg/vOIfad99-259Qqa [facility] CenterComment on above:Performed By: #### 34543 #### [facility] [address] [facility] [address], [facility]*MRSA/MSSA DNA NASALon 01-23-2019*MRSA/MSSA DNA NASAL Clinical Report: (D) Specimen: NASAL SWAB Collected: 01/23/2019 15:02 Status: Final Last Updated: 01/23/2019 20:14 MSSA DNA (Final) Methicillin Susceptible Staphylococcus aureus DNA Detected MRSA DNA (Final) No Methicillin Resistant Staphylococcus aureus DNA DetectedNoProMedica Fostoria Community HospitalComment on above:Performed By: #### 91872 #### [facility] [address] [facility] [place] [address], M[facility] VALLEY HOSPITALAPTTon 73-07-4767sGRL Coag (Bld) [Time]35.4 sHigh25.0-35.[address] Vincent Medical CenterComment on above:Result Comment: ALL RESULTS [...] BE USED FOR THIS PURPOSE.Performed By: #### 85879, 73454 #### [facility] [address] [facility] [place] [address], USABASIC METABOLIC PANELon 51-73-2834Pptgqyk [Mass/Vol]9.5 mg/dLNormal8.6-10.3The [facility] Medical CenterComment on above: Performed By: #### 81998, 27272 #### [facility] [address] [facility] [place] [address], USAChloride [Moles/Vol]101 mmol/QHpxwds14-799Cgh [facility] CenterComment on above:Performed By: #### 74658, 69359 #### [facility] [address] [place] [address], USACO2 [Moles/Vol]29 mmol/CUrnbjn64-48Cvq [facility] CenterComment on above:Performed By: #### 87987, 06185 #### [facility] [address] [place] [address], USACreatinine [Mass/Vol]1.08 mg/dLNormal0.70-1.30The [facility] CenterComment on above:Performed By: #### 85651, 30283 #### [facility] [address] [place] [address], USAGFR/1.73 sq M predicted among blacks MDRD (S/P/Bld) [Vol rate/Area]mL/min/{1.73_m2}Normal>60The [facility] Comment on above:Performed By: #### 26432, 27150 #### [facility] [address] [place] [address], USAGFR/1.73 sq M predicted among non-blacks MDRD (S/P/Bld) [Vol rate/Area]mL/min/{1.73_m2}Normal>60The [facility] Comment on above:Performed By: #### 61378, 61311 #### [facility] [address] [place] [address], USAGlucose [Mass/Vol]87 mg/lOZcngwt51-389Qkr [facility] CenterComment on above:Performed By: #### 26536, 92610 #### [facility] [address] [place] [address], USAPotassium [Moles/Vol]4.0 mmol/LNormal3.5-5.1The [facility] CenterComment on above:Performed By: #### 71023, 28949 #### [facility] [address] [facility] [place] [address], USASodium [Moles/Vol]137 mmol/PDophtg406-328Hsf [facility] CenterComment on above:Performed By: #### 62147, 57030 #### [facility] [address] [place] [address], USAUrea nitrogen [Mass/Vol]12 mg/dLNormal7-25The [facility] CenterComment on above:Performed By: #### 51506, 22404 #### [facility] [address] [place] [address], [facility] HOSPITALCBC W/DIFFon 27-25-9499DXC BASOPHILS0.1 10*3/uLNormal 0.0-0.2The [facility] CenterComment on above:Performed By: #### 83604, 50254 #### [facility] [address] [place] [address], USAABS IMM GRANS0.0 10*3/uLNormal0.0-0.2The [facility] CenterComment on above:Performed By: #### 44824, 29712 #### [facility] [address] [place] [address], USAABS NEUTROPHILS5.3 10*3/uLNormal1.6-7.6The [facility] CenterComment on above:Performed By: #### 67292, 06243 #### [facility] [address] [place] [address], USABasophils/100 WBC (Bld)0.9 %Normal0.0-1.0The [facility] Medical CenterComment on above:Performed By: #### 06362, 61424 #### [facility] [address] [place] [address], USAEosinophils (Bld) [#/Vol]0.2 10*3/uLNormal0.0-0.5The [facility] CenterComment on above:Performed By: #### 57261, 04130 #### [facility] [address] [place] [address], USAEosinophils/100 WBC (Bld)2.3 %Normal0.0-6.0The [facility] Medical CenterComment on above:Performed By: #### 35135, 67311 #### [facility] [address] [place] [address], USAErythrocyte distribution width (RBC) [Ratio]13.8 %Normal 11.5-15.0The [facility] Medical CenterComment on above:Performed By: #### 74217, 77498 #### [facility] [address] [place] [address], USAHematocrit (Bld) [Volume fraction]49.6 %Qrclih02.0-50.0The [facility] Medical CenterComment on above:Performed By: #### 08536, 48229 #### [facility] [address] [place] [address], USAHemoglobin (Bld) [Mass/Vol]16.4 g/gEDouxxb10.0-17.0The [facility] CenterComment on above:Performed By: #### 58224, 44342 #### [facility] [address] [place] [address], USAIMMATURE GRANS0.5 %Normal0.0-1.0The [facility] CenterComment on above:Performed By: #### 19168, 83024 #### [facility] [address] [place] [address], USALymphocytes (Bld) [#/Vol]1.2 10*3/uLNormal1.2-4.0The [facility] CenterComment on above:Performed By: #### 03505, 64560 #### [facility] [address] [place] [address], USALymphocytes/100 WBC (Bld)16.6 %Low20.0-45.0The [facility] Medical CenterComment on above:Performed By: #### 20583, 85981 #### [facility] [address] [place] [address], [facility] OKLAHOMA CITYH (RBC) [Entitic mass]27.8 ukUlkrkq01.0-33.0The [facility] Medical CenterComment on above:Performed By: #### 34122, 21214 #### [facility] [address] [place] [address], MESILL[facility] VALLEY HOSPITALMCHC (RBC) [Mass/Vol]33.1 g/lCVvbswb62.0-35.0The [facility] CenterComment on above:Performed By: #### 98624, 15130 #### [facility] [address] [place] [address], M[facility]ILL[facility] VALLEY HOSPITALMCV (RBC) [Entitic vol]84.2 mCLeeefy16.0-98.0The [facility] Medical CenterComment on above:Performed By: #### 95874, 16707 #### [facility] [address] [facility] [place] [address], USAMonocytes (Bld) [#/Vol]0.7 10*3/uLNormal0.1-1.0The [facility] CenterComment on above:Performed By: #### 67793, 19435 #### [facility] [address] [place] [address], USAMONOS9.4 %Normal5.0-12.0The [facility] Medical CenterComment on above:Performed By: #### 39154, 42803 #### [facility] [address] [place] [address], USANeutrophils/100 WBC (Bld)70.3 %Ixpqpl92.0-72.0The [facility] CenterComment on above:Performed By: #### 83168, 10733 #### [facility] [address] [place] [address], USANucleated RBC/100 WBC (Bld) [Ratio]0 %Normal0-0The [facility] Medical CenterComment on above:Performed By: #### 46804, 41654 #### [facility] [address] [place] [address], USAPLAT CZN939 10*3/uNVnudgq017-562Eai [facility] CenterComment on above:Performed By: #### 23626, 26452 #### [facility] [address] [place] [address], USARBC (Bld) [#/Vol]5.89 10*6/uLHigh4.20-5.70The [facility] CenterComment on above:Performed By: #### 99103, 36147 #### [facility] [address] [place] [address], USAWBC (Bld) [#/Vol]7.48 10*3/uLNormal4.00-10.60The [facility] CenterComment on above:Performed By: #### 03012, 71976 #### [facility] [address] [place] [address], USAPROTHROMBIN TIMEon 12-90-9689EGY Coag (PPP) [Relative time] 1.12 {INR}Normal0.91-1.16The [facility] Medical CenterComment on above:Result Comment: ACCCP RECOMMENDED [...] OPTIMAL THERAPEUTIC RANGE. CHEST 1995;108:231S-246S.Performed By: #### 84165, 58830 #### [facility] [address] [facility] [place] [address], USAPT Coag (PPP) [Time]14.4 zKfnubf07.3-14.8The [facility] Medical CenterComment on above:Result Comment: ALL RESULTS MUST BE INTERPRETED WITH RESPECT TO BLOOD DRAWING ARTIFACT OR DILUTION ERROR OF ANTICOAGULANT AT THE TIME OF SAMPLING.Performed By: #### 88843, 63813 #### [facility] [address] [facility] [address], USATYPE AND SCREENon 40-20-4784MKD INTERPRETATIONANoProMedica Fostoria Community HospitalComment on above:Performed By: #### 75307, 63285 #### [facility] [address] [facility] [address], USARH INTERPRETATIONPositiveNoProMedica Fostoria Community HospitalComment on above:Performed By: #### 59212, 32497 #### [facility] [address] [facility] [address], USACT 3D CERVICAL SPINE WO CONTRASTon 06-25-6088IO 3D CERVICAL SPINE WO CONTRASTUnMcCullough-Hyde Memorial Hospital Department of Radiology [address] [place] [address] Patient Name: MATTY GARCES : 1970 Sex: M Age: Race: White Pt. Location: 85 Patient Status: D Ordered Date: 01/10/2019 2:15:00 PM Completed Date: 01/12/2019 10:32 AM Requesting Provider: LUCIANO DAVIS Attending Provider: LUCIANO DAVIS Report Copy To: VENUS JAEGER Signs & Symptoms: M48.02 Spinal stenosis, cervical region I10 History: Z[employer] para auth # [id number] 01/10/19-02/09/19 [id number] *er Comments: Exam: CT 3D CERVICAL SPINE [...] incomplete Electronically signed by:Ten Uriarte. Transcribed by: [email or web address], User Resident: Electronically Signed by: TEN URIARTE @ 01/13/2019 09:18 [facility] SystemCERVICAL SPINE 2 OR 3 [facility] 01-05-2019 CERVICAL SPINE 2 [facility] 3 [facility] [address] [place] [id number] Patient Name: MATTY GARCES : 1970 Sex: M Age: Race: White Pt. Location: Patient Status: O Ordered Date: 01/05/2019 9:00:00 AM Completed Date: 01/05/2019 09:06 AM Requesting Provider: LUCIANO DAVIS Attending Provider: LUCIANO DAVIS Report Copy To: Signs & Symptoms: M48.02 Spinal stenosis, cervical region I10 History: Zapata Comments: , , , Ordering Provider - LUCIANO DAVIS MD , Exam: CERVICAL SPINE 2 OR 3 [facility] CERVICAL SPINE 2 OR 3 [...] findings. Electronically signed by:Ten Uriarte. Transcribed by: [email or web address], User Resident: SHELLY DELA CRUZ Electronically Signed by: TEN URIARTE @ 01/05/2019 12:37 PM I personally read this/these film(s) with this residentCherrington HospitalComment on above:Order Comment: , , , Ordering Provider - LUCIANO DAVIS MD , CERVICAL SPINE 2 OR 3 [facility] [id number] SPINE 2 OR 3 [facility] [address] [place] [phone] Patient Name: MATTY GARCES : 1970 Sex: M Age: Race: White Pt. Location: 85 Patient Status: O Ordered Date: 08/30/2018 9:35:00 AM Completed Date: 08/30/2018 09:43 AM Requesting Provider: LUCIANO DAVIS Attending Provider: LUCIANO DAVIS Report Copy To: VENUS JAEGER Signs & Symptoms: M50.90 Cervical disc disorder, unsp, unspecified cervical region I10 History: Zapata Comments: , POST OP XRAY AP/LAT ONLY [...] findings. Electronically signed by:Bella King. Transcribed by: [email or web address], User Resident: RYAN ANDERSON Electronically Signed by: BELLA KING @ 08/30/2018 05:45 PM I personally read this/these film(s) with this residentCherrington HospitalComment on above:Order Comment: , POST OP XRAY AP/LAT ONLY , POST OP XRAY AP/LAT ONLY , , , Ordering Provider - LUCIANO DAVIS MD , Operative Reporton [id number] ReportMR#: [id number] [facility] Pt. Name: Matty Garces Room #: 5CD [id number] Discharge Date: Birthdate: 1970 OPERATIVE REPORT DATE OF SURGERY: 08/17/2018 SURGEON: Luciano Davis M.D. PREOPERATIVE DIAGNOSIS: Herniated cervical disk at C6-7. POSTOPERATIVE DIAGNOSIS: Herniated cervical disk at C6-7. SENIOR [employer] ARCHITECT: ADENIKE Larios. ANESTHESIA: Endotracheal, Braida. PROCEDURE: Anterior [...] Davis M.D. Date Trans: 08/17/2018 11:25 P/sasha DN_JN:[id number] cc: Venus Jaeger M.D. [address] [place] [address]AnccctNocCherrington HospitalCERVICAL SPINE 2 OR 3 VWSon [id number] SPINE 2 OR [address] [facility] Department of Radiology [address] [place] [address] Patient Name: MATTY GARCES : [...] findings. Electronically signed by:Bernice Hoyt. Transcribed by: [email or web address], User Resident: KENNETH DUVAL Electronically Signed by: BERNICE HOYT @ 08/18/2018 01:06 PM I personally read this/these film(s) with this [facility] SystemComment on above:Order Comment: C6-7 ACDF with POC GLUCOSE LABon 20-41-3556Edowlhz [Mass/Vol]113 mg/tJMiwf28-881XqkToledo HospitalComment on above:Performed By: #### 12557 #### [facility] [address] [place] [address], USARBC'S 2 UNITSon [id number] INTERP 1CUniversity Hospitals Samaritan Medical CenterComment on above:Performed By: #### 53138 #### [facility] [address] [place] [address], USACROSSMATCH INTERP 2CUniversity Hospitals Samaritan Medical CenterComment on above:Performed By: #### 29108 #### [facility] [address] [place] [address], USAPRODUCT CODE [id number] HospitalComment on above:Performed By: #### 87315 #### [facility] [address] [place] [address], USAPRODUCT CODE [id number] HospitalComment on above:Performed By: #### 33623 #### [facility] [address] [place] [address], USAPRODUCT STATUS 1RAvita Health System Galion HospitalComment on above:Result Comment: Result changed by IF on 08/20/2018 07:48. The previous value was XM.Performed By: #### [id number] #### [facility] [address] [place] [address], USAPRODUCT STATUS 2RAvita Health System Galion HospitalComment on above:Result Comment: Result changed by IF on 08/20/2018 07:48. The previous value was XM.Performed By: #### 97217 #### [facility] [address] [place] [address], USAUNIT ABO 1ACherrington Hospital Comment on above:Performed By: #### 89341 #### [facility] [address] [place] [address], USAUNIT ABO 2ACherrington Hospital Comment on above:Performed By: #### 64225 #### [facility] [address] [place] [address], USAUNIT ID [id number] HospitalComment on above:Performed By: #### 21046 #### [facility] [address] [place] [address], USAUNIT ID [id number] HospitalComment on above:Performed By: #### [id number] #### [facility] [address] [place] [address], USAUNIT RH 1PosiPremier Health Upper Valley Medical CenterComment on above:Performed By: #### 87014 #### [facility] [address] [place] [address], USAUNIT RH 2PositiveCherrington HospitalComment on above:Performed By: #### 64996 #### [facility] [address] [place] [address], [place]*MRSA/MSSA CULTUREon 08-02-2018*MRSA/MSSA CULTUREClinical Report: (D) Specimen: NASAL SWAB Collected: 08/02/2018 12:37 Status: Final Last Updated: 08/03/2018 14:26 ISO (Final) No Methicillin Resistant Staphylococcus aureus Isolated (MRSA) ISO (Final) Methicillin Sensitive Staphylococcus aureus (MSSA) IsolatedNoProMedica Fostoria Community HospitalComment on above:Performed By: #### [id number] #### [facility] [address] [place] [address], MESILLA VALLEY HOSPITALAPTTon 21-48-6737iCSU Coag (Bld) [Time]31.2 sNormal 25.0-35.0The [facility] Vincent Medical CenterComment on above:Result Comment: ALL RESULTS [...] BE USED FOR THIS PURPOSE.Performed By: #### 29962, 72548 #### [facility] [address] [place] [address], MESILLA VALLEY HOSPITALBASIC METABOLIC PANELon 36-41-4749Xqmtjow [Mass/Vol]9.4 mg/dLNormal8.6-10.3The [facility] Medical CenterComment on above: Performed By: #### 60703 #### [facility] [address] [facility] [place] [address], USAChloride [Moles/Vol]103 mmol/OOgsejl74-770Rjg [facility] Medical CenterComment on above:Performed By: #### 79462 #### [facility] [address] [facility] [place] [address], USACO2 [Moles/Vol]29 mmol/OYauepj46-86Jyf [facility] Medical CenterComment on above:Performed By: #### 65391 #### [facility] [address] [facility] [place] [address], USACreatinine [Mass/Vol]1.06 mg/dLNormal0.70-1.30The [facility] Medical CenterComment on above:Performed By: #### 41541 #### [facility] [address] [place] [address], USAGFR/1.73 sq M predicted among blacks MDRD (S/P/Bld) [Vol rate/Area]mL/min/{1.73_m2}Normal>60The [facility] Comment on above:Performed By: #### 47097 #### [facility] [address] [facility] [place] [address], USAGFR/1.73 sq M predicted among non-blacks MDRD (S/P/Bld) [Vol rate/Area]mL/min/{1.73_m2}Normal>60The [facility] Comment on above:Performed By: #### 80619 #### [facility] [address] [place] [address], USAGlucose [Mass/Vol]84 mg/xYEbbmtp97-462Cty [facility] Medical CenterComment on above:Performed By: #### 27372 #### [facility] [address] [facility] [place] [address], USAPotassium [Moles/Vol]4.0 mmol/LNormal3.5-5.1The [facility] Medical CenterComment on above:Performed By: #### 29366 #### [facility] [address] [facility] [place] [address], USASodium [Moles/Vol]140 mmol/XZhrdyi461-721Fwk [facility] Medical CenterComment on above:Performed By: #### 18724 #### [facility] [address] [place] [address], USAUrea nitrogen [Mass/Vol]20 mg/dLNormal7-25The [facility] Medical CenterComment on above:Performed By: #### 12042 #### [facility] [address] [place] [address], M[facility] VALLEY HOSPITALCBC W/DIFFon 86-52-3000SEP BASOPHILS0.1 10*3/uLNormal 0.0-0.2The [facility] Medical CenterComment on above:Performed By: #### 42302 #### [facility] [address] [place] [address], USAABS IMM GRANS0.1 10*3/uLNormal0.0-0.2The [facility] Medical CenterComment on above:Performed By: #### 38168 #### [facility] [address] [place] [address], MESILLA VALLEY HOSPITALABS NEUTROPHILS4.2 10*3/uLNormal1.6-7.6The [facility] Medical CenterComment on above:Performed By: #### 91840 #### [facility] [address] [place] [address], M[facility]ILL[facility] VALLEY HOSPITALBasophils/100 WBC (Bld)1.3 %High0.0-1.0The [facility] Medical CenterComment on above:Performed By: #### 40412 #### [facility] [address] [place] [address], MESILLA VALLEY HOSPITALEosinophils (Bld) [#/Vol]0.1 10*3/uLNormal0.0-0.5The [facility] Medical CenterComment on above:Performed By: #### 86794 #### [facility] [address] [place] [address], USAEosinophils/100 WBC (Bld)2.0 %Normal0.0-6.0The [facility] Medical CenterComment on above:Performed By: #### 48664 #### [facility] [address] [place] [address], USAErythrocyte distribution width (RBC) [Ratio]13.6 %Normal 11.5-15.0The [facility] Medical CenterComment on above:Performed By: #### 53575 #### [facility] [address] [place] [address], USAHematocrit (Bld) [Volume fraction]44.3 %Kyyzjc35.0-50.0The [facility] Medical CenterComment on above:Performed By: #### 66452 #### [facility] [address] [facility] [place] [address], USAHemoglobin (Bld) [Mass/Vol]15.1 g/fPQrjpzj32.0-17.0The [facility] Medical CenterComment on above:Performed By: #### 18123 #### [facility] [address] [facility] [address], USAIMMATURE GRANS1.1 %High0.0-1.0The [facility] Medical CenterComment on above:Performed By: #### 51007 #### [facility] [address] [facility] [place] [address], USALymphocytes (Bld) [#/Vol]1.2 10*3/uLNormal1.2-4.0The [facility] Medical CenterComment on above:Performed By: #### 95832 #### [facility] [address] [facility] [place] [address], USALymphocytes/100 WBC (Bld)18.3 %Low20.0-45.0The [facility] Medical CenterComment on above:Performed By: #### 04359 #### [facility] [address] [facility] [place] [address], USAMCH (RBC) [Entitic mass]29.0 pjRaxmll19.0-33.0The [facility] Medical CenterComment on above:Performed By: #### 05204 #### [facility] [address] [place] [address], USAMCHC (RBC) [Mass/Vol]34.1 g/kFZcuzuc86.0-35.0The [facility] Medical CenterComment on above:Performed By: #### 59641 #### [facility] [address] [place] [address], USAMCV (RBC) [Entitic vol]85.0 eUIhsmip04.0-98.0The [facility] Medical CenterComment on above:Performed By: #### 70319 #### [facility] [address] [facility] [place] [address], USAMonocytes (Bld) [#/Vol]0.7 10*3/uLNormal0.1-1.0The [facility] Medical CenterComment on above:Performed By: #### 00459 #### [facility] [address] [place] [address], RSNLOUMB75.1 %Normal5.0-12.0The [facility] Medical CenterComment on above:Performed By: #### 22688 #### [facility] [address] [facility] [address], USANeutrophils/100 WBC (Bld)66.2 %Qcurdf01.0-72.0The [facility] Medical CenterComment on above:Performed By: #### 10222 #### [facility] [address] [facility] [address], USANucleated RBC/100 WBC (Bld) [Ratio]0 %Normal0-0The [facility] Medical CenterComment on above:Performed By: #### 34452 #### [facility] [address] [facility] [address], USAPLAT MBD445 10*3/pXCuubii539-223Wcv [facility] CenterComment on above:Performed By: #### 83519 #### [facility] [address] [place] [address], USARBC (Bld) [#/Vol]5.21 10*6/uLNormal4.20-5.70The [facility] [place] Medical CenterComment on above:Performed By: #### 37592 #### [address] [address], MESILLA VALLEY HOSPITALWBC (Bld) [#/Vol]6.39 10*3/uLNormal4.00-10.60The [facility] Medical CenterComment on above:Performed By: #### 42446 #### [facility] [address] [place] [address], USACERVICAL SPINE 4 OR 5 VIEWSon 83-86-6358DLIPHOMU SPINE 4 OR 5 VIEWSUnMcCullough-Hyde [facility] Department of Radiology [address] [place] [phone] Patient Name: MATTY GARCES : 1970 [...] findings. Electronically signed by:Bella King. Transcribed by: [email or web address], User Resident: KENNETH DUVAL Electronically Signed by: BELLA KING @ 08/03/2018 11:58 AM I personally read this/these film(s) with this residentNoProMedica Fostoria Community HospitalComment on above:Order Comment: , PREOP XRAY AP/LAT \EANDE\ FLEX/EX , PREOP XRAY AP/LAT \EANDE\ FLEX/EX , , , Ordering Provider - LUCIANO DAVIS MD , PROTHROMBIN TIMEon 67-89-0070LUT Coag (PPP) [Relative time]1.15 {INR}Normal0.91-1.16The [facility] Comment on above:Result Comment: ACCCP [...] OPTIMAL THERAPEUTIC RANGE. CHEST 1995;108:231S-246S.Performed By: #### 48185, 43121 #### [facility] [address] [place] [address], M[facility] VALLEY HOSPITALPT Coag (PPP) [Time]14.7 mEjgpfw98.3-14.8The [facility] Medical CenterComment on above:Result Comment: ALL RESULTS MUST BE INTERPRETED WITH RESPECT TO BLOOD DRAWING ARTIFACT OR DILUTION ERROR OF ANTICOAGULANT AT THE TIME OF SAMPLING.Performed By: #### 32299, 77670 #### [facility] [address] [place] [address], M[facility] VALLEY HOSPITALTYPE AND SCREENon 48-43-8016GWF INTERPRETATIONANoProMedica Fostoria Community HospitalComment on above:Order Comment: 2 units 2 units 2 units 2 units 2 unitsPerformed By: #### 46766 #### [facility] [address] [place] [address], USARH INTERPRETATIONPositiveNoProMedica Fostoria Community HospitalComment on above:Order Comment: 2 units 2 units 2 units 2 units 2 unitsPerformed By: #### 88003 #### [facility] [address] [place] [address], USAURINALYSIS REFLEXon 82-07-5775Wbtslrhenv (U)CLEARNormal CLEARThe [facility] Medical CenterComment on above:Performed By: #### 92312 #### [facility] [address] [place] [address], USABilirubin [Mass/Vol]NegativeNormalNEGATIVEThe [facility] Medical CenterComment on above:Performed By: #### 67253 #### [facility] [address] [place] [address], USABLOODNegativeNormalNEGATIVEThe [facility] Medical CenterComment on above:Performed By: #### 08475 #### [facility] [address] [place] [address], USAColor (U)YELLOWNormalYELLOWThe [facility] St[facility] Medical CenterComment on above:Performed By: #### 56508 #### [facility] [address] [place] [address], USAGlucose [Mass/Vol]150 mg/dLAbnormalNEGATIVEThe [facility] Medical CenterComment on above:Performed By: #### 54287 #### [facility] [address] [place] [address], USAKETONENegativeNormalNEGATIVEThe [facility] Medical CenterComment on above:Performed By: #### 53827 #### [facility] [address] [place] [address], USALEUK ESTERNegativeNormalNEGATIVEThe [facility] Medical CenterComment on above:Performed By: #### 82423 #### [facility] [address] [place] [address], USAMICRO NOT DONEnegative chemical reactions unless requested in original orderNormalThe [facility] Medical CenterComment on above: Performed By: #### 38705 #### [facility] [address] [place] [address], USANitrite Ql (U)NegativeNormalNEGATIVEThe [facility] Medical CenterComment on above:Performed By: #### 54161 #### [facility] [address] [facility] [place] [address], M[facility]ILLA VALLEY HOSPITALpH (Bld)5.7Xuspda3.0-8.0The [facility] Medical CenterComment on above:Performed By: #### 23658 #### [facility] [address] [place] [address], M[facility] VALLEY HOSPITALProtein (U) [Mass/Vol]NegativeNormalNEGATIVEThe [facility] Medical CenterComment on above:Performed By: #### 12787 #### [facility] [address] [facility] [place] [address], USASPEC GRAV1.954Efyc4.015-1.020The [facility] Medical CenterComment on above:Performed By: #### 62703 #### [facility] [address] [place] [address], [facility] Vital Signs Date TimeVital SignValuePerforming StcvntlhuWaiuonxr85-74-4086 15:09-0400Body cmJafortino Rainey SUPERVISING FILM OR VIDEOTAPE EDITOR Work Phone: [facility] RoadLhjwueetty89-87-0737 15:09-0400Body mass index (BMI) [Ratio]34.92 kg/z7PtihwlquroHeather Rainey SUPERVISING FILM OR VIDEOTAPE EDITOR Work Phone: [facility] RoadRuetyxtbxr82-33-4405 15:09-0400Body gquobl374.38 kgJafortino Rainey SUPERVISING FILM OR VIDEOTAPE EDITOR Work Phone: [facility] RoadHkduajvymx00-86-5104 15:09-0400Diastolic blood fxpsyhcd86 mm[Hg]Heather Rainey SUPERVISING FILM OR VIDEOTAPE EDITOR Work Phone: [facility] RoadWksqyfcmig37-97-7436 15:09-0400Systolic blood pnypswww145 mm[Hg]Heather Raniey SUPERVISING FILM OR VIDEOTAPE EDITOR Work Phone: [facility] RoadGredwauvfi76-12-4563 11:03-0400Body yavbco459 cm Rubén Geiger MD Work Phone: [facility] RoadBzjftrntwn22-65-7498 11:03-0400Body mass index (BMI) [Ratio]34.02 kg/b2UewyrjbRubén Geiger MD Work Phone: [phone]–Barry RoadVybmnydoyw44-81-5397 11:03-0400Body .2 kgRubén Geiger MD Work Phone: [phone] [place], [place] [address]Nmoeuxrhhg54-99-1959 11:03-0400Diastolic blood lkmzerpp10 mm[Hg]Rubén Geiger MD Work Phone: [phone] [place], [place] [address]Lvsioojtsq81-46-9104 11:03-0400Heart abqy998 /min Rubén Geiger MD Work Phone: [phone] [place], [place] [address]Azdrrtxthw17-27-8361 11:03-0400Systolic blood hrojyywr956 mm[Hg]Rubén Geiger MD Work Phone: [phone] [place], [place] [address]Pkgxqyanzn06-84-8536 14:44-0400Body exkoib323 cm Rubén Geiger MD Work Phone: [phone] [place], [place] [address]Oikiudpyig88-74-2785 14:44-0400Body mass index (BMI) [Ratio]35.31 kg/s4ChmrumxRubén Geiger MD Work Phone: [phone]–Barry RoadBwrxbowynl18-65-9778 14:44-0400Body .74 kgRubén Geiger MD Work Phone: [facility] RoadZpqpvyjrxh68-02-5348 14:45-0400Body cm Rubén Geiger MD Work Phone: [facility] RoadXiwelvxtmr44-41-2384 14:45-0400Body mass index (BMI) [Ratio]37.62 kg/w1EpufwveRubén Geiger MD Work Phone: [facility] RoadCvimhiwgza30-29-0372 14:45-0400Body tkuces997.9 kgRubén Geiger MD Work Phone: [facility] RoadJqmxsyzpfl91-94-0320 10:30-0400Blood Pressure LocationKatFormerly [facility], [facility] 06-15-2022 10:30-0400Diastolic blood ijhdyrai618 mm[Hg] Viola Lue [facility] 06-15-2022 10:30-0400Heart rate74 /minKathy Lue [facility] 06-15-2022 10:30-0400Respiratory rate16 /minKathy Lue [facility] 06-15-2022 10:30-0400Systolic blood biiwyrtf561 mm[Hg] Viola Lue [facility] Encounters Encounter DateEncounter TypeCare ProviderFacilityStart: 07-13-2025 End: 38-61-9482Xxgrqn outpatient visit 25 minutesHeather Rainey SUPERVISING FILM OR VIDEOTAPE EDITOR Work Phone: noms Lee NeurologyComment on above:Excessive daytime sleepiness; Obstructive sleep apneaStart: 07-13-2025 End: 38-46-5604vqvlaqxnwhWGBQHURFJT M GRAZIANINot AvailableStart: 07-13-2025 End: 72-13-5998Qedlhy flowsheetHeather Rainey SUPERVISING FILM OR VIDEOTAPE EDITOR Work Phone: noms NEUROLOGYStart: 07-13-2025 End: 43-11-0095Pbjbxh flowsheetHeather Rainey SUPERVISING FILM OR VIDEOTAPE EDITOR Work Phone: noms NEUROLOGYStart: 06-20-2025 End: 17-81-9426crmcguswhtFqfgvue M Hoy MD Work Phone: [facility] Work Phone: Start: 06-20-2025 End: 83-18-7404Krjkdpbb ReferredRafik Massouh MD-LAB [facility] Start: 05-29-2025 End: 52-92-3276Gquyezw encounter procedureJustnamita Eze Pauly DO-CT Scan [facility] Work Phone: Start: 05-29-2025 End: 30-02-9431iottqjqkheAxipgya M Hoy MD Work Phone: [facility] Work Phone: Start: 05-15-2025 End: 32-74-5718DzzjidStfbtuwmyd M Graziani NP Work Phone: noms Lee NeurologyComment on above:Excessive daytime sleepiness; Primary insomniaExcessive daytime sleepiness; Obstructive sleep apneaStart: 05-07-2025 End: 63-80-7744ljmsvitrohSaaunir M Hoy MD Work Phone: [facility] Work Phone: Start: 05-07-2025 End: 87-90-9524Cathoac encounter procedureJustnamita Eze Pauly DO-[facility] Work Phone: Start: 04-04-2025 End: 46-25-9980Vvasorsilviano Geiger MD Work Phone: noms NEUROLOGYStart: 04-04-2025 End: 69-32-5635Dttjcrsilviano Geiger MD Work Phone: noms BM NEUROLOGYStart: 04-04-2025 End: 05-23-1127Caucvh outpatient visit 25 minutesBremuriel Geiger MD Work Phone: noms SWS NEURComment on above:Narcolepsy cataplexy syndrome (HCC) (Primary Dx); Excessive daytime sleepiness; Cervical disc disorder; Intractable chronic migraine with aura with status migrainosusStart: 04-04-2025 End: 52-02-5345kyrslbsghvCKPAOLO W BAUERNot AvailableStart: 03-05-2025 End: 23-64-8724Vqsajimjx Result EncounterAmy [place] PA Work Phone: noms External Department UnsolicitedStart: 03-05-2025 End: 23-87-0767Tniocmkef Result EncounterJess HOYOS Work Phone: noms External Department UnsolicitedStart: 01-03-2025 End: 29-48-0334Sgzqpg outpatient visit 25 minutesRubén Geiger MD Work Phone: noms SWS NEURComment on above:Primary narcolepsy with cataplexy (CMS/HCC) (Primary Dx); Excessive daytime sleepiness; Obstructive sleep apneaStart: 01-03-2025 End: 36-37-9069evqzqoryacGARGDZR W BAUERNot AvailableStart: 01-03-2025 End: 62-36-5819Tokhxicaesar Geiger MD Work Phone: noms NEUROLOGYStart: 01-03-2025 End: 63-79-4726Fodsdmcaesar Geiger MD Work Phone: noms BM NEUROLOGYStart: 12-11-2024 End: 77-29-5518uqvwwwyphiXCZSIQR W BAUERNot AvailableStart: 12-11-2024 End: 84-04-1781Pncglm outpatient visit 25 minutesRubén Geiger MD Work Phone: noms SWS NEURComment on above:Cubital tunnel syndrome on right (Primary Dx); Cervical paraspinal muscle spasm; Degeneration of intervertebral disc of lumbosacral region with discogenic back pain and lower extremity pain; Narcolepsy cataplexy syndrome (CMS/HCC)Start: 11-14-2024 End: 32-72-5293Omivludec Jeff Mason EEG. T. Other Phone: noms SWS NEURStart: 10-12-2024 End: 58-33-3028Smvesxarr encounterHeather Rainey NP Work Phone: noms [facility] NEURO 210Start: 13-20-3756Bqgrbrjpjo and management of inpatientCHRISTOPHER [facility] Start: 10-08-2024 End: 46-11-9618Jsjkooguyn and management of inpatientJACK [facility] Centertart: 10-02-2024 End: 95-33-1055RgytuyIqwqqad Peterson LPNNOMS SV NEURO 210Comment on above: Excessive daytime sleepiness; Obstructive sleep apneaStart: 70-90-6503Kocvxhubcg and management of inpatient [facility] ROBERTSMercy Health [facility]art: 97-80-9078Eynksqkqvz and management of inpatientBRANTLEY HINDERSUniOhio Valley Hospital Start: 44-47-9370Qwwkpacudj and management of inpatientJAMIE [facility] Centertart: 22-84-6768Cdvuuogbyg and management of inpatient SHIN [facility] Centertart: 88-87-5674Ncwztodldj and management of inpatientABDUL MUSTAPHAUniProtestant Deaconess Hospitaltart: 63-46-8415Yljqykoclf and management of inpatientRACHEL [facility]art: 89-42-0216Nplnqampv department patient visitJAMIE [facility]'s Medical Centertart: 97-15-9082Qeroqgfmm department patient visitJAMIE [facility] Centertart: 09-23-2024 Emergency department patient visitRACHEL [facility]art: 09-23-2024 End: 70-23-7946Uvemmmgplv and management of inpatientJEFFERY KATKOMercy Health [facility] Hospitaltart: 09-21-2024 End: 21-69-3816slaogpwgqkKzyam D [facility] Work Phone: Start: 09-21-2024 End: 25-27-6371Pxdyypsg ReferredCrozer-Che[facility] DPM Work Phone: [facility]-LAB Path Spec [place] HospStart: 07-04-2024 End: 52-60-9513Dvjvwuytg encounterRubén Geiger MD Work Phone: noms SVH NEURO 210Start: 07-03-2024 End: 43-76-8097Rfagdx outpatient visit 25 minutesRubén Geiger MD Work Phone: noms SWS NEURComment on above:Excessive daytime sleepiness (Primary Dx); Obstructive sleep apnea; Primary insomnia; Cubital tunnel syndrome on rightStart: 07-03-2024 End: 67-74-8453Vhudcw Anastasiya Geiger MD Work Phone: noms BM NEUROLOGYStart: 07-03-2024 End: 00-66-0864Pqwjuq Anastasiya Geiger MD Work Phone: noms NEUROLOGYStart: 05-10-2024 End: 86-52-4202UwsiukQhohdxs W Bauer MD Work Phone: noms SWS NEURComment on above:Primary insomniaStart: 01-03-2024 End: 79-68-6178rmbkhricadLNO Trey [facility] Work Phone: [facility] Work Phone: Start: 01-03-2024 End: 27-92-0005Dauvvkyr ReferredDPM Trey [facility] Work Phone: [facility]-LAB Path Spec [place] HospStart: 11-29-2023 End: 18-86-9634ihvfmdhoaoHnretqt Vytautas Giedraitis MDFacility:PM Toño Start: 10-18-2023 End: 01-45-2943dxjltvdlhmIiwgunq Vytautas Giedraitis MDFacility:PM [place] Start: 08-30-2023 End: 69-89-6164dcodnanyomIirclxb Vytautas Giedraitis MDFacility:PM [place] Start: 07-12-2023 End: 73-89-3809ktwxekjkqcKzxjybo Vytautas Giedraitis MDFacility:PM [place] Start: 06-14-2023 End: 33-87-3679ajkmmcldppUtibjop Vytautas Giedraitis MDFacility:PM [place] Start: 12-06-2022 End: 40-06-7014nwtsmmmaueHI VENUS HOY .Facility:M4Iugmj: 63-97-3927Virfwnkby for general adult medical examination without abnormal findingsDR VENUS HOY . [facility] [place] [facility]Start: 12-01-2022 End: 62-92-1300tngbujbrntMM VENUS HOY .Facility:C2Qrkbm: 12-01-2022 End: 66-16-4388Jqytsggsf for general adult medical examination without abnormal findingsDR VENUS HOY .Facility:H8Cjanl: 07-10-2022 End: 79-64-1671znkqnzhehoMK VENUS HOY .Facility:O5Zpdin: 03-26-2022 End: 63-23-9433nbyndlopisMC VENUS HOY .Facility:P0Csjxw: 03-13-2022 End: 58-06-5187nifsseuhxnZD VENUS HOY .Facility:G0Ooamk: 02-25-2022 End: 68-66-1009Sakwjhe encounter procedureViola Grullon [facility] start: 01-04-2022 End: 33-04-4215rschpdhalnTF VENUS HOY .Facility:A5Jurua: 01-30-2019 End: 70-04-0771Xkfwsinghe and management of inpatientPROVIDER UNKNOWN Facility:[facility]: 08-17-2018 End: 46-60-3851Dpscliu encounter procedurePROVIDER UNKNOWNFacility:[facility] Procedures DateProcedureProcedure DetailPerforming ClinicianStart: 92-53-2036HJ of lower leg without contrastVenus Jaeger MD Work Phone: Start: 44-91-8551ZQO 12-LEADAmy Garry HOYOS Work Phone: Start: 61-30-0909XTV screeningDR VENUS HOY .Comment on above:Performed By: #### PSASC #### [facility] [address] [address] [address] Shabnam RaeStart: 51-46-0144GJDUSS CERV JT W INTBD FUS DEV, ANT APPR A COL, OPENAZEDINE MEDHKOURStart: 42-95-2081KYYIUQD OF INT FIX FROM CERVCAL VERTEBRA, OPEN APPROACHAZEDINE MEDHKOURStart: 62-87-6108Psmwwxnf screenPROVIDER UNKNOWN Comment on above:Performed By: #### [id number], [id number] #### [facility] [address] [facility] [place] [address], USAStart: 65-28-1076ZOODHJ SPINE CORD SURGERYANTHONY BRAIDA Start: 84-28-5161KFIENG SPINE FIXATION DEVICEAZEDINE MEDHKOURStart: 08-17-2018 NECK SPINE FUSE\T\REMOV BEL G2YPJBOPM MEDHKOURStart: 01-40-5353YD BONE ALGRFT STRUCT ADD-ONAZEDINE MEDHKOURStart: 94-06-8552Mplcqruj screenPROVIDER UNKNOWN Comment on above:Order Comment: 2 units 2 units 2 units 2 units 2 unitsPerformed By: #### [id number] #### [facility] [address] [facility] [place] [address], USAStart: 02-08-1998H/O: vasectomyHistory of vasectomyRubén Geiger MD Work Phone: ColonoscopyKathy Lue Hemorrhoids (disorder)Viola Lue Hernia of abdominal cavity (disorder)Viola Lue TonsillectomyKathy Lue Plan of Treatment DateCare ActivityDetailAuthorStart: 11-05-2025 End: 57-36-9147Tkeqtds encounter hadcyxpil69/23/2026 1:20 PM EST Office Visit [facility] [address] [place] [address] Rubén Geiger MD [address] [place] [address] NOMClotilde Wiley NeurologyStart: 07-13-2025 End: 27-09-4184Mfuqhlg encounter vxazwbpnr02/31/2025 2:40 PM EDT Office Visit [facility] [address] [facility] [address] [place] [address] Heather Rainey, SUPERVISING FILM OR VIDEOTAPE EDITOR [address] [place] [address], [place] [id number] ArrivedNOMS [facility] Comment on above:ArrivedStart: 06-27-2025 End: 74-58-6202Lqcolmj encounter procedureNOMS [facility] NEURStart: 06-83-0740KTMNE-19 Vaccine ( season)COVID-19 Vaccine ( season)NOMS HealthcareStart: 45-19-1709Pimfgfphf vaccinationInfluenza Vaccine (#1)[facility]OM[facility] HealthcareStart: 04-04-2025 End: 58-88-2710Rzfefaj encounter procedureNOMS SWS NEURComment on above:Arrived Start: 01-03-2025 End: 96-66-9445Iuprsgk encounter procedureNOMS SWS NEURComment on above:Arrived Start: 10-04-2024 End: 78-26-6518Pfsfkql encounter ujuflyjpd27/22/2025 2:20 PM EST Office Visit [facility] [address] [facility] [address] [place] [address] Rubén Geiger MD [address] [facility] [address], [place] [id number] NOMS [facility] NEURStart: 90-62-8594Dvxsccfnhci Wound CultureSuperficial Wound CultureDelaware County Hospitaltart: 07-03-2024 End: 54-82-3884Jvaujgn encounter procedureNOMS SWS NEURComment on above:Arrived Start: 54-44-7282Atofttben vaccinationInfluenza Vaccine (#1)[facility] Start: 12-79-6955Odjodiucy B Vaccines (1 of 3 - 19+ 3-dose series)Hepatitis B Vaccines (1 of 3 - 19+ 3-dose series)[facility] HealthcareStart: 1976 DTaP/Tdap/Td Vaccines (1 - Tdap)DTaP/Tdap/Td Vaccines (1 - Tdap)[facility] Healthcare Start: 95-31-3073SDE Vaccines (1 of 1 - Standard series)MMR Vaccines (1 of 1 - Standard series)NOM HealthcareStart: 95-80-2757Tliskcmol for malignant neoplasm of colonNOMS HealthcareBacteria identified in Unspecified specimen by Aerobe cultureKettering HealthCT Lower leg - right W contrast IV [facility]tering HealthXR Tibia and Fibula - right 2 ViewsSanta Rosa Medical Center Immunizations Immunization DateImmunizationNotesCare SsmyrswbOdlrugne36-19-2928qltyrrxyu virus vaccine, unspecified formulationJacsaeid Rainey SUPERVISING FILM OR VIDEOTAPE EDITOR Work Phone: [facility] RoadHmgxxhbqjp64-25-5599cppggeieq virus vaccine, unspecified formulationBremuriel Geiger MD Work Phone: noBarnes-Jewish West County HospitalWnwawfqype61-74-8939dmtckerib virus vaccine, unspecified formulationBremuriel Geiger MD Work Phone: [facility] Payers DatePayer CategoryPayerPolicy [id number] [id number] [id number] [id number] 2..840.1.017902.3.579.2.647 [id number] 2.16840.1.616123.3.579.[id number] 2.16.840.1.737076.3.579.2.83859-89-3133Pdeofoh6821330 2..840.1.507984.3.579.2.66948-98-8133Sxupbcq2700715 2.16.840.1.216688.3.579.2.73830-93-2711Zmzdeac8056538 2.840.1.830628.3.579.2.19907-85-6084Rfswpie1124745 2.840.1.192234.3.579.2.22600-39-7051Kheegid6583034 2.840.1.037346.3.579.2.10182-39-6443Rrtljnu230762585 2.840.1.732564.3.57[id number] 2.840.1.644928.3.579.2.19787-18-6282Oekkolq709063438 2.840.1.454951.3.579.2.40[id number] 2.840.1.153299.3.579.[id number] 2.840.1.194620.3.579.2.90664-94-3385Vlxztxu53023908 2.840.1.711446.3.579.2.211351-08-2962Bytycmc98755095 2.840.1.394026.3.579.2.131949-70-4100Rnlgzrj6508769 2.840.1.427893.3.579.2.807268-30-2633Vbtbcnn1531931 2.840.1.196644.3.579.2.080222-37-5101Etjfcz[id number] [id number] 2.16.840.1.199681.3.579.2.507Kfdwktf40157760 2.16.840.1.121509.3.579.2.997Pjgujvs85588350 2.16.840.1.183251.3.579.2.531 Social History DateTypeDetailFacilityTobacco smoking statusNo Smoking Status EnteredExecutive Urology [facility] start: 03-27-2024 End: 74-19-4035Wcx Assigned At [facility] HospitaleEx[facility] start: 05-15-2018 End: 25-53-9746Duwnqpj smoking status NHISEx-smoker (finding)[facility]tart: 03-55-3343Jgv Assigned At [facility] Healthtart: 98-07-0515Ucweswl smoking status NHISNever smoked tobacco [facility] HealthcareStart: 87-06-2309Aalikkn use and exposureSmokeless tobacco non-userNOMS HealthcareStart: 03-27-2024 End: 44-06-0622Keecmjfxv beverage intakeEx-drinker (finding)[facility] Start: 03-27-2024 End: 94-78-2004Jweeujx of Social functionNOMS HealthcareStart: 66-79-2310Wnz assigned at birthNot on fileNOMS HealthcareStart: 50-29-7692LniGjib (finding) [facility]tart: 26-44-1014SkyBztgMHQX Healthcare Functional Status VokwRmrepfupxyXdgftfCrnamlaf81-14-5042Nhqxmxlfcd StatusN/AExecutive Urology [facility] Clinical Notes 02-25-2022 to 07-13-2025 Note Date & RbnpNjpqRyilbqto25-67-4891 History of Present illness Narrative* Heather Rainey, SUPERVISING FILM OR VIDEOTAPE EDITOR - 07/13/2025 2:40 PM EDT Images from [...] care. This clinical note was created utilizing [employer] documentation system. All information has beenthoroughly reviewed, corrected as necessary, and authenticated by the provider to ensure accuracy and completeness. On occasion, [employer] documentation system erroneously drops words or replaces aspoken word with a similar sounding word. Please notify with any questions or concerns regarding this clinical note. documented in this encounterSaint Luke's North Hospital–Barry RoadQrasciwwhk84-93-4947 Radiology Diagnostic study [facility] [address] [place] [address] CT Scan Report Signed Patient: Matty Garces MR#: [id number] : 1970 Acct:[id number] Age/Sex: 54 / M ADM Date: 5 Loc: CT Room: Type: [facility] CLI Attending Dr: Jameel Coats DO [...] M.D. 05/29/2025 11:40 PM Dictation Location: [facility] Transcribed By: [facility] 05/29/252339 Dictated By: Francis Irving II, MD 05/29/25 1024 Signed By: 05/29/252339 [facility] Work Phone: 1(801) 662-815509-03-2025 Telephone encounter Note* Telephone Encounter - Heather Rainey NP - 05/16/2025 8:45 AM EDT OARRS reviewed [facility] RoadYlqvlsoekc51-36-4350 Miscellaneous Notes* Telephone Encounter - Heather Rainey NP - 05/16/2025 8:45 AM EDT OARRS reviewed documented in this encounterSaint Luke's North Hospital–Barry RoadNbotmfqxxc68-14-5081 Evaluation note* Diagnosis Onset Date Resolution Status Admit Date Hypertrophy of bone of lower leg noneactiveAugust 2024 11:21amFracture of right tibia and fibulanoneactive May 07, 2025 11:21amRight leg painnoneactiveAugust 2024 11:21am [facility] Work Phone: 1(699) 277-100907-23-2025 History of Present illness Narrative* Rubén Geiger [...] in all four extremities, including at least saddle cutter, finger abductors, biceps, triceps, deltoid, toe flexors [...] [facility]. If symptomspersist or worsen, further [...] up in 3 months. documented in this encounterSaint Luke's North Hospital–Barry RoadVqcislpscn49-89-4158 History of Present illness Narrative* Rubén Geiger [...] 1 mg, Oral, 2 times daily HYDROcodone-acetaminophen (Winona) 5-325 MG tablet hydrOXYzine pamoate (Vistaril) 25 [...] in all four extremities, including at least saddle cutter, finger abductors, biceps, triceps, deltoid, toe flexors [...] Increase Xywav to 6mg documented in this encounterSaint Luke's North Hospital–Barry RoadRengwvcjki76-23-8739 History of Present illness Narrative* Rubén Geiger [...] 1 mg, Oral, 2 times daily HYDROcodone-acetaminophen (Winona) 5-325 MG tablet hydrOXYzine pamoate (Vistaril) 25 [...] in all four extremities, including at least saddle cutter, finger abductors, biceps, triceps, deltoid, toe flexors [...] intracranial or extracranial stenosis. documented in this encounterSaint Luke's North Hospital–Barry RoadMmkpxxwjic30-84-3184 Telephone encounter Note* Telephone Encounter - Isabella Manzano - 11/14/2024 9:49 AM EST Pt called for refill on Zofran. [facility] Work Phone: 1(612) 926-237103-04-2025 Miscellaneous Notes* Telephone Encounter - Isabella Manzano - 11/14/2024 9:49 AM EST Pt called for refill on Zofran. documented in this encounterSaint Luke's North Hospital–Barry RoadRornihnzki44-25-2789 Telephone encounter Note* Telephone Encounter - Heather [...] sent and if I search patient chat. [facility] RoadKaorfvcwoo29-36-1356 Miscellaneous Notes* Telephone Encounter - Heather Rainey [...] I search patient chat. documented in this encounterSaint Luke's North Hospital–Barry RoadXqwgxvaaab84-27-7762 NoteOccupational Therapy Occupational Therapy Treatment Note Patient [...] going to put in a elba toilet. (Supervisor Composing Room suggesting a RTS or to have son put in toilet however, pt stated that he will replace the toilet himself) Objective 1 Pt was up in chair at EOS with on her way. Objective 2 Supervisor Composing Room provided education on home and bathroom safety. [...] Henrietta (more content not included)...[facility] 10-11-2024 NoteHospital Medicine Discharge Summary [...] 54-year-old male who came from [facility] due to left lower extremity [...] PM Sandrine Field MD [facility] Your medication list START taking these medications [...] Medications These medications were sent to [facility] - [place], [place] - [address] [place] [address] [place] [address], [facility] [address] Phone (more content not included)...[facility] 10-11-2024 NotePharmacy Dosing Service - [...] you, Sudha Camacho, PharmD, 10/11/24[facility]01-29-2025 Note Attestation signed by Sandrine [...] with any concerns via the Orthopaedic pager ([phone]) at any time. Jazzmine Casanova MD Orthopedic Surgery Resident, PGY 1UnMcCullough-[facility]01-28-2025 [facility] Daily Progress Note - 10/10/2024 6:40 PM; Room: [address] [place] [address] Admission: 10/08/2024 5:47 AM; Length of stay: 2 days THE HOSPITALIST TEAM PREFERS TO USE [employer] CHAT FOR NON-URGENT COMMUNICATION 7AM-7PM. IF I DO NOT RESPOND WITHIN 20 MINUTES OR URGENT MATTERS, PLEASE CALL THROUGH THE SUPERVISOR BELT AND LINK ASSEMBLY. FROM 7PM-7AM, PLEASE PAGE [phone](COVR). Code Status: Full Code Barriers to Discharge: [...] , FREET4 , CORTISOL , FEV1 , KTU3DDC , DLCO , RVSP , HDL , LDL No results found for: LCOHENAU47 , IRON , TIBC , C3 , [...] Discharge Planning Expected Discharge Disposition: Home-Health Care [facility] (06) PT (more content not included)...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 Patient states he would like to resume care with this power shovel operator at discharge. He has not been able to see power shovel operator since previous discharge due to scheduling [...] Histor (more content not included)...[facility]01-28-2025 NotePhysical Therapy Physical Therapy Treatment [...] S (more content not included)...[facility] 10-10-2024 Note. Pharmacy Dosing Service [...] BUN/SCr daily Erin RangelD, 10/09/24[facility]01-27-2025 Note Occupational Therapy Occupational Therapy Evaluation Patient Name: Matty Garces : 1970 Today's Date: 10/09/2024 Time in:1504 Time out: 1526 Present Illness History: 54 y/o M presented from [facility] with R LE cellulitis. Patient [...] Level of Function Prior Function Level of [place]: Independent with ADLs and functional transfers, Independent [...] fu (more content not included)...[facility]01-27-2025 Note10/09/24 0909 Admission Assessment Questions [...] Status Interested Does the patient have a wrapper caser assigned to them through their insurance? No Living Arrangement (Current/Prior to Hospitalization) Private residence (lives with ) Does the patient have history of C or SNF? Yes (Active with Radha/Abdirashid [facility]) Assistive Device Wheelchair;Bedside Commode;Walker Patient's goal for discharge Home with [facility] Was patient reminded that goal for discharge is 11am? No Does the patient have transportation at discharge? Yes Type of Residence Private residence;Home care staff Is PT/OT appropriate? Yes Is PT/OT ordered? Yes Is SW consult appropriate? Yes Is SW consult ordered? Yes Do you understand the benefits of MyChart? Yes Were you able to send link and activate MyChart? [facility]01-27-2025 NoteHospital Medicine Daily Progress Note - 10/09/2024 12:13 PM; Room: [address] [place] [address] Admission: 10/08/2024 5:47 AM; Length of stay: 1 days THE HOSPITALIST TEAM PREFERS TO USE Sandglaz CHAT FOR NON-URGENT COMMUNICATION 7AM-7PM. IF I DO NOT RESPOND WITHIN 20 MINUTES OR URGENT MATTERS, PLEASE CALL THROUGH THE SUPERVISOR BELT AND LINK ASSEMBLY. FROM 7PM-7AM, PLEASE PAGE [phone](COVR). Code Status: Full Code Barriers to Discharge: [...] , FREET4 , CORTISOL , FEV1 , EMS4CAH , DLCO , RVSP , HDL , LDL No results found for: SWJOJRUD50 , IRON , TIBC , C3 , [...] Discharge Planning Expected Discharge Disposition: Home-Health Care [facility] (06) PT Discharge Recommendations: Home PT Signed C (more content not included)...[facility]01-27-2025 NotePhysical Therapy Physical Therapy Re-Evaluation Patient Name: Matty Garces : 1970 Today's Date: 10/09/2024 General Subjective: Attempted to see pt earlier today (0513-2226) for mobility assessment. Pt deferred d/t pain [...] Therape (more content not included)...[facility] 10-09-2024 Note. Pharmacy Dosing Service [...] steady state -Check BUN/SCr daily Erin RangelD, 10/09/24UnMcCullough-Hyde [facility] Hospital01-27-2025 Note Orthopaedic Surgery Orthopaedic Surgery Progress [...] Rivas MD Orthopaedic Surgery, PGY-2 Ortho Pager [phone] 10/09/24 6:38 AM I am available via [employer] 6a-6p. May contact the on-call resident with any concerns via the Orthopaedic pager at any time.[facility]01-26-2025 NoteCase was discussed with the AYAKA on 10/08/2024. I agree with the history, physical, assessment, and plan of care. I discussed the findings and therapeutic plan. I agree with the documentation, except for any updates below. Fabiola Wade, [facility]01-26-2025 NotePhysical Therapy Evaluation Patient Name: Matty Garces Today's Date: 10/08/2024 Admit Date: 10/08/2024 Time In: 1:20pm Time Out: 1:45pm Cumulative minutes: 25 minutes Billed minutes: 25 minutes; 15 min eval; 10 min therapeutic exercise to review HEP x10 reps. History of present illness Per H&P: Matty Garces is an 54 y.o. male who came from [facility] with LLE cellulitis. Patient has PMH of hypertension, diastolic heart failure, GERD, anxiety. He recently was admitted here and had right leg tib/fib fracture and seen by our ortho team and had closed insertion with intramedullary wendy on 09/24/24 and was discharged home. He reports he went to [place] ER due to increased pain, swelling and [...] patient refused this stating he already has [facility] set up and wants to go home. Vascular surgery was consulted for a chronic left foot ulcer. Pulmonary navigator was consulted for PATEL and recommended OP sleep study. On day of discharge, Trauma team was informed at approximately 1730 per [facility] that patient went into a-flutter and sustained for approximately 2 hours from approximately 0508-9638. Trauma team ordered a STAT ECG and [...] assessment (more content not included)...[facility]01-26-2025 NotePharmacy Dosing Service - Vancomycin Initial Consult Note Pharmacy has been consulted for the dosing and evaluation of Drug: Vancomycin Indication: complicated skin and soft tissue infection AUC 400-600 mg*hr/L and trough 10-20 mcg/mL Other Antimicrobial Regimens: cefepime Labs and Renal Function Total body weight: 134 kg (295 lb) [place] body weight: 82.2 kg (181 lb 3.5 [...] Comments: - 54 year old male from [place] with LLE cellulitis -Had intramedullary wendy placed [...] or questions Thank you, Altaf Martin, PharmD, 10/08/24UnMcCullough-[facility]01-26-2025 Note Will consult wound careUnMcCullough-Hyde Memorial Hospital01-26-2025 Note Continue vanco and zosyn Ortho following Will get blood culturesUnMcCullough-Hyde Memorial Hospital01-26-2025 Note Continue citalopram, clonazepamUnMcCullough-Hyde Memorial Hospital01-26-2025 NoteContinue modafinil, coregUnMcCullough-Hyde Memorial Hospital01-26-2025 Note Not in exacerbation Continue furosemide, coreg, asaUnMcCullough-Hyde Memorial Hospital01-26-2025 NoteOrtho following, concern for possible infection Admit to med surg Activity orders per ortho with LLE Cardiac diet Will get labs this morning and follow up on results Daily bmp and cbc to monitor kidney function, electrolytes, hgb and wbc Case will be discussed with attending physicianMercy Health St. [facility]01-26-2025 NoteHospital Medicine History and Physical 10/08/2024 7:26 AM THE HOSPITALIST TEAM PREFERS TO USE coresystems FOR NON-URGENT COMMUNICATION 7AM-7PM. IF I DO NOT RESPOND WITHIN 20 MINUTES OR URGENT MATTERS, PLEASE CALL THROUGH THE SUPERVISOR BELT AND LINK ASSEMBLY. FROM 7PM-7AM, PLEASE PAGE [phone](COVR). Chief Complaint Chief Complaint Patient presents with Cellulitis History of Present Illness Matty Garces is an 54 y.o. male who came from [facility] with LLE cellulitis. Patient has PMH of hypertension, diastolic heart failure, GERD, anxiety. He recently was admitted here and had right leg tib/fib fracture and seen by our ortho team and had closed insertion with intramedullary wendy on 09/24/24 and was discharged home. He reports he went to [place] ER due to increased pain, swelling and [...] this hospital stay by a member of [facility]. Past Medical History Past Medical [...] Insecurity (more content not included)...[facility]01-20-2025 Telephone encounter Note* Telephone Encounter - Marianna Sheehan LPN - 10/02/2024 2:19 PM EST Prov[facility]il refill request to [facility] sent to provider. Last appt. 07/03/24 [id number] Miscellaneous Notes* Telephone Encounter - Marianna Sheehan LPN - 10/02/2024 2:19 PM EST Provigil refill request to [facility] sent to provider. Last appt. 07/03/24 documented in this encounterSaint [facility]'s [facility] [id number] NoteTrauma team informed at approximately 1730 per [facility] that patient went into a-flutter and sustained for approximately 2 hours from approximately [id number]. Trauma team ordered a STAT ECG and [...] paperwork reviewed and signed [facility]01-16-2025 Note09/28/24 1537 Home Oxygen Therapy Evaluation Pulse Oximetry on room air at Rest 94 Pulse Ox on room air while walking 96 Patient Qualification for home oxygen Does not qualify for home oxygen this visit (When pt is sleeping, apnea is noted and at times saturation drops but when pt is awake and moving his oxygenation is stable)[facility]01-16-2025 NoteUnSumma Health Trauma Surgery Progress Note Subjective Patient [...] kg (296 lb 15.4 oz) (09/28 035) Bronaugh Coma Scale Score: 15 FiO2 (%): [50 [...] QT Interval 386 QTC CALCULATION(BAZETT) 450 P Cambridge 61 R-Cambridge 18 T Wave Cambridge 69 Impression Normal sinus rhythm Normal ECG [...] walker, commode, and rolling wheelchair.[facility]01-16-2025 Note Physical Therapy Physical Therapy [...] recliner (more content not included)...[facility]01-16-2025 NoteOccupational Therapy Occupational Therapy Treatment [...] apnea) Gastroesophageal reflux disease Obese Co-tx with LAWN CARE PROFESSIONAL to facilitate purposeful activity, 2/2 high fall risk, impaired dyn standing balance & act tolerance, poor safety awareness, & poor safety awareness with STS, transfers, & functional ambulation; To maintain safety of patient & staff. 09/28/24 1358 OT Last Visit OT Received On 09/28/24 General Subjective I got my w/c 3rd hand...from my vliais-tw-her. Treatment Duration (min) 55 Minutes Response to [...] not maintain precs. General Assessment Hearing mild [place] Skin Integrity ALVARO wrap to RLE, DFU [...] during mary lou-care post BM, standing at [facility]. Unsteadiness present. Static Sitting Balance Static Sitting-Balance Support Feet supported Static Sitting-Level of Assistance Distant supervision Static Sitting-Comment/Number of Minutes Supervision for safety Dynamic Sitting Balance Dynamic Sitting-Balance Support Feet supported;Unilateral upper extremity supported Dynamic Sitting Balance-Level of Assistance Close supervision Dynamic Sitting-Comments SBA for safety scooting EOB, positioning on [facility] Static Standing Balance [...] mary lou-care & hygiene in stance at [facility] with RW. Add'l SBA for safety. Pt very unsteady with poor awareness. CGA during functional ambulation with device. Cues for safety awareness, & maintaining WB precs. Bed Mobility 1 Bed Mobility From 1 Supine Bed Mobility Type 1 To Bed Mobility to 1 Short sit Level of Assistance 1 Close superv (more content not included)...[facility]01-16-2025 NoteCalled [employer] by phone to check on status of pt's DME (wheelchair, walker, bedside commode). Was advised they did not receive it via [employer] and would need it direct faxed to [phone]. Faxed referral and was advised they will [...] to call . UPDATE 3:05PM- Spoke with [employer] again and was advised the wheelchair [...] discharge around 6pm tonight. Also spoke with [facility] and was provided w/ fax [phone] to send AVS once ready. UPDATE 4:05PM- Direct faxed final AVS to [facility]01-16-2025 NoteUnSumma Health Vascular and Wound Surgery DAILY PROGRESS [...] silho (more content not included)...[facility]01-15-2025 NoteDischarge Planning: Home with [facility] The patient was accepted by [facility]. DME referral sent to [facility]. The patient would like the DME either delivered to the hospital or his home prior to discharge.[facility]01-15-2025 Note Occupational Therapy Occupational Therapy Treatment Patient Name: Matty Garces : 1970 Today's Date: 09/27/2024 Time in:1357 Time out:1450 Total time:53 minutes,23 min OT, additional for LAWN CARE PROFESSIONAL [place] provided to maximize safety as progressed [...] 2 (more content not included)...[facility]01-15-2025 Note Physical Therapy Physical Therapy [...] balance, (more content not included)...[facility]01-15-2025 Note Attestation signed by Fahad Rizzo MD at 09/28/2024 7:41 AM Patient seen and examined with trauma team [facility] Trauma Surgery Progress Note Subjective [...] kg (299 lb 2.6 oz) (09/27 338) Bronaugh Coma Scale Score: 15 Intake/Output Summary (Last [...] QT Interval 386 QTC CALCULATION(BAZETT) 450 P Cambridge 61 R-Cambridge 18 T Wave [place] 69 Impression Normal sinus rhythm Normal ECG [...] Respiratory: (more content not included)...[facility] 09-26-2024 NotePer patients patient was to start with Radha Mendenhall [facility] on the day of admit. Referral made as requested. SW following.[facility]01-14-2025 NoteUnSumma Health Vascular and Wound Surgery DAILY PROGRESS NOTE Subjective Patient seen and examined at bedside. No acute events overnight. Vital signs stable. Denies pain to the left ulcer. Patient states he follows regularly with power shovel operator at [facility] and plans to follow-up [...] COMPARISON: (more content not included)...[facility] 09-26-2024 NoteOccupational Therapy Occupational Therapy [...] on with B LE's elevated Objective 2 Supervisor Composing Room discussed importance of discharging to facility for continued therapy prior to going home however, pt declines. Pt transfers are currently unsafe with credit underwriter questioning ability to maintain WB status. OT [...] Other Pt is impulsive during standing/transfer activities. Supervisor Composing Room questions pts safety while at home. General [...] Patient/f (more content not included)...[facility]01-14-2025 NoteOrthopaedic Surgery Orthopaedic Surgery Progress [...] Can be reached at the orthopedic pager: [phone] Luis Felipe Rivas MD 09/26/24 7:24 AM Ortho Pager: [phone]-Hyde [facility]01-14-2025 Note [facility] Trauma Surgery Progress Note Subjective [...] kg (303 lb 9.2 oz) (09/26 043) Bronaugh Coma Scale Score: 15 Intake/Output Summary (Last [...] effusion. 2. Unchanged cardiomediastinal silhouette. Electronically signed: dEmund Valenzuela MD. No CT results found for the past 24 hours No MRI results found for the past 24 hours EKG: Encounter Date: 09/23/24 ECG 12 lead Result Value Ventricular Rate 82 Atrial Rate 82 OH Interval 164 QRS DURATION 92 QT Interval 386 QTC CALCULATION(BAZETT) 450 P Cambridge 61 R-Cambridge 18 T Wave Cambridge 69 Impression Normal sinus rhythm Normal ECG [...] monitori (more content not included)...[facility]01-13-2025 NotePt was seen early this morning about wearing BiPap for possible sleep apnea due to periods of apnea and decreased oxygen saturation overnight. Pt refused BiPap, stating he has tried it before and it gives him migraines. Pt was agreeable to wearing a salter at night to help with oxygenation.[facility]01-13-2025 Note09/25/24 1528 Referral Data Referral Source flour worker Referral Reason Follow up;Information Patient Information Primary Caregiver Spouse Activities of Daily Living Assistive Device Walker;Wheelchair Behavior Oriented Communication Talks;Understands speaking Discharge Planning Living Arrangements Spouse/significant other Support Systems Spouse/significant other Type of Residence Private residence;[facility] (await name of agency from ) Post Acute Services In home services (agreeable to [facility]) Type of Home Care Services (Current) Skilled Home Servicies;Home OT;Home PT ([facility] was just going to start services before admit) Patient's goal for discharge home with [facility] Does the patient need discharge transport arranged? No () Screened by [facility]. Pt declines SNF placement and is agreeable to take pt home with [facility]. Await name of [facility] agency that was approved to start services. Pt will likely need RT for home O2. Will follow up with pt's for [facility] agency. thinks [facility] agency is [employer] [facility] or [employer] [facility]. SW will follow with referrals.[facility]01-13-2025 Note09/25/24 1332 Admission Assessment Questions [...] Status Interested Does the patient have a wrapper caser assigned to them through their insurance? No Living Arrangement (Current/Prior to Hospitalization) Private residence;Home self care Does the patient have history of HHC or SNF? Yes (pt could not remember the [facility] agency name, neither could ) [...] , patient deferred to .[facility]01-13-2025 NoteThe findings from this face to face encounter indicate the reason this patient requires a bedside commode. Patient is physically incapable of using regular toilet facilities. Patient is confined to 1 level of the home with no toilet on that level Marilou Tomlin [facility] Department of Surgery - Trauma [phone]01-13-2025 NoteThe findings from this face [...] is provided in the home Marilou Tomlin [facility] Department of Surgery - Trauma [facility]-[address] [place], [place] [address]01-13-2025 NoteThe findings from this face to face [...] been discussed with the patient Marilou Tomlin [facility] Department of Surgery - Trauma [phone] [place], [place] [address]-13-2025 NotePhysical Therapy Physical Therapy Evaluation Patient Name: [...] demo General Assessment General Assessment Hearing: mild [place] Skin Integrity: alvaro wrap to RLE, wound [...] Level of Function Prior Function Level of Warren: Independent with ADLs and functional transfers, Independent [...] A (more content not included)...[facility]01-13-2025 Note Attestation signed by Gabriel [...] meet criteria for admission to IPR: Assessment: Towns fracture of the right tibial shaft and [...] Plan of Care: Patient with diagnosis of Towns fracture of the right tibial shaft and [...] (more content not included)... [facility]01-13-2025 NoteOccupational Therapy Occupational Therapy Evaluation [...] carryover General Assessment General Assessment Hearing: Mild [place] Skin Integrity: ALVARO wrap to RLE, DFU [...] de (more content not included)...[facility]01-13-2025 NoteOrthopaedic Surgery Orthopaedic Surgery Progress [...] Rivas MD 09/25/24 7:02 AM Ortho Pager: [phone]-Hyde Memorial Hospital01-13-2025 Note [facility] Trauma Surgery Progress Note Subjective [...] QT Interval 386 QTC CALCULATION(BAZETT) 450 P Cambridge 61 R-Cambridge 18 T Wave [place] 69 Impression Normal sinus rhythm Normal ECG [...] (more content not included)... [facility]01-12-2025 NoteUnSumma Health Vascular Surgery/Wound Care CONSULTATION Reason for Consult: Left foot ulcer Subjective History of Present Illness: Matty Garces is a 53 y.o. male with a PMH of DM, HTN, HF and recent cellulitis to [facility] . He is admitted for transverse [...] BID, ROMAIN Acevedo, 1 tablet at 09/24/24 2188 Social History Socioeconomic History Marital status: Spouse [...] Pulmonar (more content not included)...[facility]01-12-2025 NoteOrthopaedic Surgery Orthopaedic Surgery Progress [...] BRO MD 09/24/24 10:29 PM Ortho Pager: [phone]-Hyde Memorial Hospital01-12-2025 Note Patient: Matty Garces Procedure Summary Date: 09/24/24 Room / Location: [facility] OPERATING ROOM 05 / [facility] Operating Room Anesthesia Start: 1020 [...] acceptable No notable events documented.[facility]01-12-2025 Note Airway Date/Time: 09/24/2024 10:35 AM Urgency: elective General Information and Staff Patient location during procedure: OR Anesthesiologist: Jeffery Casey MD Resident/OAKES MACHINE OPERATOR/CAA: Kenneth Marina MD Performed: resident/OAKES MACHINE OPERATOR/CAA Indications and Patient Condition Indications for airway [...] approach: 1 Number of other approaches attempted: 0UnMcCullough-Hyde Memorial Hospital 09-24-2024 NotePatient: Matty Garces Procedure Information Date/Time: 09/24/24 1000 Procedure: CLOSED INSERTION, INTRAMEDULLARY WENDY, TIBIA (Right: Leg Lower) Location: [facility] OPERATING ROOM 05 / [facility] Operating Room Surgeons: Sandrine Field [...] QT Interval 368 QTC CALCULATION(BAZETT) 467 P Cambridge 54 R-Cambridge 60 T Wave Cambridge 12 Impression Normal sinus rhythm Normal ECG [...] and resident. Additional Equipment RequestsMercy Health St. [facility]01-12-2025 Note Subjective Patient resting comfortably [...] kg (304 lb 3.8 oz) (09/24 951) Bronaugh Coma Scale Score: 15 Intake/Output Summary (Last [...] wounds (more content not included)...[facility]01-12-2025 NotePhysical Therapy Name: Matty Garces Date of : 1970 Today's Date: 09/24/24 Pt is unable to be seen for therapy at this time secondary to Surgery today for fixation of frature. Will check back and complete therapy session as appropriate. Check No Charge Time attempted: 0759 Janet Lovelace PT, [facility]ENTERUnMcCullough-Hy[facility]01-12-2025 Note Orthopaedic Surgery Orthopaedic Surgery Progress Note Date: 09/24/2024 Surgery: 09/24/2024 - CLOSED INSERTION, INTRAMEDULLARY WNEDY, TIBIA (R) SUBJECTIVE: NAEON. Patient reports some [...] Rivas MD Orthopaedic Surgery, PGY-2 Ortho Pager [phone] 09/24/24 7:29 AM I am available via [employer] chat 6a-6p. May contact the on-call resident with any concerns via the Orthopaedic pager at any time.[facility]10-22-2024 Telephone encounter Note* Telephone Encounter - Nita Anthony - 07/04/2024 4:10 PM EDT left message regarding prescriptions earlier today and not being at pharmacy. I did call back and spoke to advising they were sent this afternoon. had mentioned Dr. Geiger was also going to start a Vitamin B to help boost energy in the morning. [facility] in [place]. [facility] [id number] Miscellaneous Notes* Telephone Encounter - Nita Anthony - 07/04/2024 4:10 PM EDT left message regarding prescriptions earlier today and not being at pharmacy. I did call back and spoke to advising they were sent this afternoon. had mentioned Dr. Geiger was also going to start a Vitamin B to help boost energy in the morning. [facility] in [place]. documented in this encounterSaint Luke's [facility] Hospital[facility]Barry [id number] History of Present illness Narrative* Rubén Geiger [...] 1 mg, Oral, 2 times daily HYDROcodone-acetaminophen (Winona) 5-325 MG tablet hydrOXYzine pamoate (Vistaril) 25 [...] reflexes: Alycia's absent. Ankle clonus absent. Coordination Oniysd-hr-ahfl, rapid alternating movements and tmjo-ai-ieby normal bilaterally without dysmetria. Gait Normal casual, [...] Follow up 3 months. documented in this encounterSaint Luke's North Hospital–Barry [id number] NotePROCEDURE: XR FOOT LT MIN 3 VIEWS [...] Electronically authenticated by: ALVINA CAICEDO Date: 2022-03-26 10:47[facility]06-15-2022 Hospital Discharge instructions Patient Education 02/25/2022 [...] Watch the hydrocele for any changes. Take jlbz-vtn-sracsfl and prescription medicines only as told by [...] 02/17/2011 Document Revised: 09/10/2018 Document Reviewed: 09/10/2018 [employer] Patient Education 2020 [employer]. Follow Up Care 01/28/2022 10:36:35 With:Mitchel DELGADO, CH[place] Gregorio, URO Address: When: Unknown [facility] evaluation + Plan note No data available for this section [facility] evaluation noteNo assessment information available [facility] Work Phone: Evaluation note* Diagnosis Excessive [...] May 07, 2025 11:21amRight leg painnoneactiveAugus2024 11:21am [facility] Work Phone: Evaluation note* Diagnosis Excessive [...] [facility] reason for referral (narrative)No reason for referral information availableOhio State [facility] Hospital Work Phone: Summary Purpose Family History [...] May 11:42am Hospital Course Note MR#: [id number] [facility] Pt. Name: Matty Garces Admitted: [...] CREATED AUTHOR 07/19/[address] [facility] DATE CREATED AUTHOR AUTHOR'S ORGANIZ ATION 02/27/2022 [facility] DATE CREATED AUTHOR AUTHOR'S ORGANIZ ATION 12/08/2022 [facility] DATE CREATED AUTHOR AUTHOR'S ORGANIZ ATION 12/03/2023 [facility] DATE CREATED AUTHOR AUTHOR'S ORGANIZ ATION 10/15/[address] [facility] DATE CREATED AUTHOR AUTHOR'S ORGANIZ ATION 06/23/2025 [facility] DATE CREATED AUTHOR AUTHOR'S ORGANIZ ATION 07/15/2025 [facility] EPIC Care Team (unrecognized sect ion and content) Team Status: Inactive Member Role Status Dates Trey Vallejo DPM MS Attending Provider Active Start: January 03, 2024 End: January 03, 2024Team MemberRelationshipSpecialtyStart DateEnd Date Venus Jaeger MD [address] [place] [address] PCP - GeneralFamily Medicine01/10/24Team MemberRelationshipSpecialtyStart DateEnd Date Venus Jaeger MD [address] [place] [address] PCP - GeneralFamily Medicine01/10/24Team MemberRelationshipSpecialtyStart DateEnd Date Venus Jaeger MD [address] [facility] [place] [address] PCP - GeneralFamily Medicine01/10/24Team MemberRelationshipSpecialtyStart DateEnd Date Venus Jaeger MD [address] [facility] [place] [address] PCP - GeneralFamily Medicine01/10/24 Team Status: Inactive Member Role Status Dates Trey Vallejo DPM MS Attending Provider Active Start: September 21, 2024 End: September 21, 2024Team MemberRelationshipSpecialtyStart DateEnd Venus Jaeger MD [address] [facility] [place] [address] PCP - GeneralFamily Medicine01/10/24Team MemberRelationshipSpecialtyStart DateEnd Venus Jaeger MD [address] [facility] [place] [address] PCP - GeneralFamily Medicine01/10/24Team MemberRelationshipSpecialtyStart DateEnd Date Venus Jaeger MD [address] [facility] [place] [address] PCP - GeneralFamily Medicine01/10/24Team MemberRelationshipSpecialtyStart DateEnd Date Venus Jaeger MD [address] [facility] [place] [address] PCP - GeneralFamily Medicine01/10/24Team MemberRelationshipSpecialtyStart DateEnd Date Venus Jaeger MD [address] [place] [address] PCP - [facility]01/10/24Team MemberRelationshipSpecialtyStart DateEnd Date Venus Jaeger MD PCP - [facility]01/10/24Team MemberRelationshipSpecialtyStart DateEnd Date Venus Jaeger MD PCP - [facility]01/10/24Team MemberRelationshipSpecialtyStart DateEnd Venus Jaeger MD PCP - [facility]01/10/24 Team Status: Active Member Role Status Lacey Jaeger MD Primary Care Provider Active Team Status: Inactive Member Role Status Lacey Jaeger MD Primary Care Provider Active Start: May 07, 2025 End: May 07, 2025JuDania Paulson ProviderActiveStart: May 07, 2025 End: May 07, 2025Team MemberRelationshipSpecialtyStart DateEnd Date Venus Jaeger MD PCP - [facility]01/10/24Team MemberRelationshipSpecialtyStart DateEnd Venus Jaeger MD PCP - [facility]01/10/24 Team Status: Inactive Member Role Status Lacey Jaeger MD Primary Care Provider Active Start: May 29, 2025 End: May 29, 2025Justin A Pauly , DOAttending ProviderActiveStart: May 29, 2025 End: May 29, 2025 Team Status: Inactive Member Role Status Dates Bonine Ernandez MD Attending Provider Active Sta rt: June 20, 2025 End: June 20, 2025Team MemberRelationshipSpecialtyStart DateEnd Date Venus Jaeger MD [address] [place] [address] PCP - [facility]07/13/25Team MemberRelationshipSpecialtyStart Date End Date Venus Jaeger MD [address] [place] [address] PCP - [facility]07/13/25 Goals (unrecognized section and content) Goals [...] BE BASED ON THE PRIMARY CLINICAL RECORDS. Travel Notes [facility]. provides no warranty or guarantee of the accuracy or completeness of information in this document.
--- OUTSIDE RECORDS SUMMARY | 2025-09-12 14:13 | XMS_ITS | Clinical Summary ---
Author Organization [facility] Healthcare Address [address] [place] [address] Care Team Providers Care Surgical Nurse Name Role Phone Caden Mendez MD Primary Care Provider [phone] Allergies Active AllergyReactionsCriticalityNoted BzbbIabsmmnnJddggouyZapjonm91/26/2021 VsmiamtvhtcIchtefx29/26/2021Morphine And YbrnaluTksuxuz58/26/6117Ogvmw00/26/2021 Other Reaction(s): Unknown, will accelerate blindness in [...] each day at the same timeActive HYDROcodone-acetaminophen ([place]) 5-325 MG tablet 03/20/2024ctive cholecalciferol (Vitamin D-3) [...] THE MORNING AND AT NOON 60 tablet 11005/16/9799766Active modafinil (Provigil) 200 MG tablet Indications:Excessive daytime sleepiness,Obstructive sleep apneaTake 1 tablet (200 mg) by mouth in the morning and at noon 60 tablet 506Active Active Problems ProblemNoted DateDiagnosed DateCellulitis of left lower xnqtbemmw99/26/2025Open wound of left great toe10/08/2024Narcolepsy cataplexy eglfxmid02/22/2025Obese 09/24/2024losed fracture of right fibula and tibia09/23/2024Fall at home, initial zjafjjrvz15/11/2025Weakness of left upper bgrnybrcr38/17/2024Left upper extremity /17/2024Herniation of cervical intervertebral disc with pocmlsrewwktr92/17/2024ecreased testosterone level06/24/2023egeneration of lumbosacral intervertebral disc06/24/2023iabetes mellitus without complication 06/24/20238419Bkzonmtfhwwvv20/12/2023Impotence of organic liored0106/24/2023Lateral kwkbqusoplggx33/12/2023Lumbar tkduuttokgxhh88/12/2023Systolic mjbypg74 Unspecified inflammatory spondylopathy, lumbar jzyhlh2506/24/2023ardiovascular stress test rcqxdast14/09/2023Chest cceejwyhtj62/09/2023ubital tunnel syndrome on right3Benign hypertensive cardiomyopathy with heart failure 3Chronic combined systolic and diastolic congestive heart failure, NYHA class Overview (10/15/2024): EF 45-50% with mild DD Diastolic dysfunction with chronic heart kwabgnb3006/09/2023Non-ischemic gqogzplvqtwlls99/27/2023rimary qrsmigjr68/29/2023Excessive daytime sleepiness 03/11/2023ervical paraspinal muscle spasm03/11/2023Nonpsychotic mental disorder due to organic brain hmbjlr2406/26/2021pinal stenosis in cervical region 10/11/2018Cervical disc dgazaaup97/19/2018Carpal tunnel syndrome of right wrist 03/24/2018Arthritis of right acromioclavicular joint12/30/2017Other chronic pain 12/30/2017Excessive bsikjlmr18/06/8016Gzqmpbgkfdpqczm35/29/2015Senile gtfaphdmpexcxr48/16/2015Urinary tract infectious igoxtix1506/28/2014nkle edema 05/15/2014Ulnar nerve xfcspcrnow00/01/0573Vwlmznqwj38/27/2013Cellulitis 03/31/2013Disorder of intervertebral disc of lumbar spine12/02/2012Muscle pain 12/02/2012Foot pain10/07/2012Clouded fsuoqmbvagfny52/21/1612Mfckeol19/21/2012 Owykeuf3211/30/2011Chest pain11/30/20111638Gtnkkywp88/17/2011Upper respiratory aeimsbyas73/25/2011Joint pain09/03/2009Hypertensive czozchsm54/05/2009Capillary rgrodugmuf39/15/2008Diabetes apwhkpyd81/11/3163Pzjwnirj30/21/2007nxiety /29/2006Impingement syndrome of shoulder saadhc8201/25/2003Obstructive sleep apnea11/06/2002History of dzwigdytl39/29/1998 Encounters DateTypeDepartmentCare TokqHxlvzgnoxxk35/10/2025Telephone [facility] [address] [facility] [address] [place] [phone] Juliana Lambert MA 07/13/2025 2:40 PM EDTOffice Visit [facility] [address] [phone] Heather Miguel NP Cervical disc disorder (Primary Dx); Excessive daytime sleepiness; Obstructive sleep apnea; Intractable chronic migraine with aura with status migrainosus; Primary narcolepsy with cataplexy (HCC)07/13/2025amboo flowsheet [facility] [address] [place] [phone] Heather Miguel NP 07/13/20257119Tsaxik61/09/2025Telephone [facility] [address] [place] [address] [place] [address] Radha Wright MA from Last 3 Months Family History Medical HistoryRelationNameCommentsDiabetesFatherGlaucomaMotherRelationName StatusCommentsFatherAliveMotherAlive Social History Tobacco UseTypesPacks/DayYears UsedDateSmoking Tobacco: NeverSmokeless Tobacco: Never Tobacco Cessation:Counseling Given: Not Answered Alcohol UseStandard Drinks/WeekCommentsNot Currently0 (1 standard drink = 0.6 oz pure alcohol)Sex and Gender InformationValueDate RecordedSex Assigned at Not on fileLegal QtkPkzi1911/25/2022 7:12 PM EDTGender IdentityNot on fileSexual OrientationNot on file Last Filed Vital Signs Vital SignReadingTime TakenCommentsBlood Agnfemnh493/6807/13/2025 3:09 PM EDT Usppk81656/23/2025 11:03 AM EDTTemperature--Respiratory Rate--Oxygen Saturation- -Inhaled Oxygen Concentration--Zumgly520 kg (272 lb)07/13/2025 3:09 PM EDTHeight 188 cm (6' 2 )07/13/2025 3:09 PM EDTBody Mass Index34.9207/13/2025 3:09 PM EDT Plan of Treatment Health MaintenanceDue DateLast DoneCommentsCT Thjawcslmrsi89/21/1970Colonoscopy 1969Colorectal Cancer Kmzidycyn16/21/1970FIT-DNA1969FIT1969 FOBT1969 7520Ligfjdbsefadd29/21/1970Influenza CidlnenLedcesykf57/28/2025, 07/07/2024, 07/06/2023, Additional history existsPneumococcal Vaccine: Pediatrics (0 to 5 Years) and At-Risk Patients (6 to 64 Years)Aged OutNo longer eligible based on patient's age to complete this topic Insurance * Guarantor: Alden Garces TypeRelation to PatientDate of BirthPhone Billing AddressPersonal/EjbaqmCwto24/21/[id number] [address] Care Teams Team MemberRelationshipSpecialtyStart DateEnd Date Caden Mendez MD [address] [place] [address] PCP - GeneralFamily Ysnhwmye79/31/25
--- OUTSIDE RECORDS SUMMARY | 2025-09-12 14:13 | XMS_ITS | Clinical Summary ---
Author Organization [facility] Address [address] [place] [place] [address] Care Team Providers Care Lead Refiner Name Role Phone Caden Mendez MD Primary Care Provider [phone] Christiano Geiger MD Unavailable [phone] Trey Vallejo DPM Unavailable [phone] Allergies No known active allergies Medications MedicationSigDispense [...] ProblemNoted DateDiagnosed DateCellulitis of left leg10/09/2024Left leg oapojerybg87/26/2025 Assessment & Plan (10/08/2024 7:47 AM EST): Continue vanco and zosyn Ortho following Will get blood cultures Open wound of left great toe10/08/2024 Assessment & Plan (10/08/2024 8:36 AM EST): Will consult wound care HTN (hypertension)09/24/2024 Assessment & Plan (10/08/2024 7:47 AM EST): Continue modafinil, coreg PATEL (obstructive sleep apnea)09/24/2024Gastroesophageal reflux txdbgwz1809/24/2024 Obese09/24/2024Fall at home, initial jfxicueok01/11/2025losed fracture of right fibula and tibia09/23/2024 Assessment & Plan (10/08/2024 7:47 AM EST): Ortho following, concern for possible infection Admit to med surg Activity orders per ortho with LLE Cardiac diet Will get labs this morning and follow up on results Daily bmp and cbc to monitor kidney function, electrolytes, hgb and wbc Case will be discussed with attending physician Non-ischemic nchenfytmahmzd67/27/2023iastolic dysfunction with chronic heart vlxsogr2906/09/2023enign hypertensive cardiomyopathy with heart hlerjmd9706/09/2023 Chronic combined systolic and diastolic congestive heart failure, NYHA class 2 06/09/2023 Overview (06/09/2023): EF 45-50% with mild DD Assessment & Plan (10/08/2024 7:47 AM EST): Not in exacerbation Continue furosemide, coreg, asa Anxiety yphlukmn08/29/2006 Assessment & Plan (10/08/2024 7:47 AM EST): Continue citalopram, clonazepam Social History Tobacco UseTypesPacks/DayYears UsedDateSmoking Tobacco: NeverSmokeless Tobacco: Never Tobacco Cessation:Counseling Given: Not Answered Alcohol UseStandard Drinks/WeekCommentsYes0 (1 standard drink = 0.6 oz pure alcohol)monthlyMARYMOUNT [facility]ITAL UtilitiesAnswerDate RecordedIn the past 12 months has the [employer], [employer], or water [employer] threatened to shut off services in your [...] were you homeless or living in a penitentiary (including now)? No10/08/2024Hunger Vital SignAnswerDate RecordedWithin the past 12 months, you worried that your food would run out before you got the money to buymore.Never true10/08/2024Ran Out of Food in the Last YearNot on file10/08/2024Sex and Gender InformationValueDate RecordedSex Assigned at WajxkReuy92/11/2025 11:46 AM ESTLegal LonXexx6303/11/2022 10:17 PM EDTGender HwcfemyyWqzy57/11/2025 11:46 AM ESTSexual OrientationChoose not to ylcjsfui52/11/2025 11:46 AM EST Last Filed Vital Signs Vital SignReadingTime TakenCommentsBlood Rhlfifbq073/8810/11/2024 6:26 AM EST Ecfuu2188/29/2025 6:26 AM UMNPayvgzvbvpq98.7 ??C (98.1 ??F)10/11/2024 6:26 AM ESTRespiratory Kvcw832210/11/2024 6:26 AM ESTOxygen Oyyoiezxvv13%10/11/2024 6:26 AM ESTInhaled Oxygen Concentration--Nskral929 kg (231 lb 7.7 oz)10/10/2024 6:57 AM QLVWvmcus005 cm (6' 2 )10/08/2024 5:58 AM ESTBody Mass Index29.72010/08/2024 5:58 AM EST Plan of Treatment DateTypeDepartmentCare Team (Latest Contact Info)Dnaqtlkloic80/15/2026 1:00 PM ESTFollow-Up [facility] [address] [place] [address] Sandrine Field MD [address] [place] [address] Health MaintenanceDue DateLast DoneCommentsCT Uiwliewqjyof95/21/1970Colonoscopy 1969Colorectal Cancer Aqgxeelfx17/21/1970Diabetes: Hemoglobin A1C 1969FIT-DNA1969FIT1969FOBT1969 5531Bcursqhapbpwt39/21/1970 Diabetes: Retinopathy Igilufvct34/21/1980Depression Iyvmyhnsl82/21/1982Diabetes: Urine Protein Xynbvszev35/21/1989Hepatitis B Vaccines (1 of 3 - 19+ 3-dose series)1988Pneumococcal Vaccine: Pediatrics (0 to 5 Years) and At-Risk Patients (6 to 64 Years) (1 of 2 - PCV)1988Adult Sczpxvt2610/03/1991Zoster Vaccines (1 of 2)2019COVID-19 Vaccine ( - season)2025 08/18/2021, 12/24/2020, 12/02/2020Influenza BbfssaqAwingxcgh82/28/2025, 07/07/2024, 07/06/2023, Additional history existsHIB VaccinesAged OutNo longer eligible [...] 09/24/2024 by Sandrine Field [facility]ailRight: ZiskeYruaygg86/.043.145S / / [id number] Implanted:Qty: 1 on 09/24/2024 by Sandrine Field MD at [facility]: [id number]/.045.042S / / [id number] Implanted:Qty: 1 on 09/24/2024 by Sandrine Field MD at [facility]: [id number]/.045.044S / / [id number] Implanted:Qty: 1 on 09/24/2024 by Sandrine Field MD at [facility]: [id number]/.045.046S / / [id number] Implanted:Qty: 1 on 09/24/2024 by Sandrine Field MD at [facility]: [id number]/.045.034S / / [id number] Insurance * Guarantor: Alden Garces TypeRelation to PatientDate of BirthPhone Billing AddressPersonal/GppxhaGuqk71/[birth year][address] [place] [phone] Advance Directives * Full Code (Latest Code Status on File) Date ActivatedDate InactivatedComments10/08/2024 7:17 AM10/11/2024 4:47 PM * Full Code Date ActivatedDate InactivatedComments09/23/2024 1:50 PM09/28/2024 8:43 PM Care Teams Team MemberRelationshipSpecialtyStart DateEnd Date Caden Mendez MD [address] [place] [address] PCP - General09/23/24 Christiano Geiger MD [address] [facility] [address] [phone] 10/11/24 Trey Vallejo DPM Address: [address] [place] [address] [place] [address] Podiatr10/11/24
--- OUTSIDE RECORDS SUMMARY | 2025-09-12 14:13 | XMS_ITS | Clinical Summary ---
Author Organization [facility] Address [address] [place] [address] Care Team Providers Care Cotton Factor Name Role Phone Caden Mendez MD Primary [...] Last Filed Vital Signs Vital SignReadingTime TakenCommentsBlood Nyyztupc092/49607 12:54 PM EDT Ifkuh937004/06/2012 12:54 PM XURNpoifjyisjb73.1 ??C (98.7 ??F)04/06/2012 12:54 PM EDTRespiratory Rate--Oxygen Saturation--Inhaled Oxygen Concentration--Weight 107.5 kg (237 lb)04/06/2012 12:54 PM EDTHeight--Body Mass Index-- Plan of Treatment Health MaintenanceDue DateLast DoneCommentsAnxiety Zybwdtarz72/21/1988Depression Jtpvofhdz64/21/1988HIV Vqvicluop79/21/1988Hepatitis C Dekmdfqpr52/21/1988 DTaP,Tdap,Td Vaccine (1 - Tdap)1988Hepatitis B Vaccine (1 of 3 - 19+ 3- dose series)1988Lipid Gdorewdnp61/21/2005CT Jarlylvxmawv35/21/2015 Cologuard (FIT-DNA)10/03/20141758Ywlvegclssg84/21/2015Colorectal Cancer Screening 2014Fecal Occult Blood2014Prostate Cancer Screening Discussion 10/03/20144838Itpxtfwdfqwkq94/21/2015Diabetes Nmtngutvc33 Pneumococcal Vaccine: 50+ (1 of 1 - PCV)2019Shingrix Vaccine (1 of 2) 2019Covid-19 Vaccine (1 - 2024- season)2025Influenza Vaccine (#1) 2025RSV Vaccine (1 - 1-dose 75+ series)2044 Procedures Procedure NamePriorityDate/TimeAssociated DiagnosisCommentsCOMPREHENSIVE METABOLIC ZYRYNYnjqshm62/04/2012 1:47 PM EDT Myalgia from Last 3 Months or Most Recently Relevant to Health Maintenance Results * (ABNORMAL) COMP METABOLIC PANEL (05/17/2012 1:47 PM EDT)ComponentValueRef RangeTest MethodAnalysis TimePerformed AtPathologist SignatureProtein, Total 7.56.0 - 8.4 g/dLSAMARITAN HOSPITAL MAIN LABORATORYAlbumin4.83.5 - 5.0 g/dL [facility] LABORATORYCalcium9.68.5 - 10.5 mg/dLCLEVELAND CLINIC [facility]IRVIEW [facility] LABORATORYBilirubin, Total0.30.0 - 1.5 mg/dLCLEVELAND CLINIC FAIRVIEW [facility] LABORATORYAlkaline Cucfymsyuvj3873 - 150 U/LCJ.[facility] UMF754 - 40 U/LCJ.[facility] HAISXJIJGQYwpxlto87(L)65 - 100 mg/dL [facility] MMWEGBHVJEUIQ7808 - 25 mg/dLCLEVELAND CLINIC FAIRVIEW [facility]OS[facility]ITAL LABORATORYCreatinine1.000.70 - 1.40 mg/dLCLEVELAND CLINIC [facility]IRVIEW [facility] LABORATORY Lkryhg039586 - 146 mmol/LCJ.[facility] LABORATORYPotassium3.53.5 - 5.0 mmol/LCJ.[facility] BCIXGSBICTOjuhzoze11925 - 110 mmol/LCJ.[facility] QJXJCRZURJTJ78624 - 32 mmol/LCJ.[facility] LABORATORYAnion Koz905 - 15 mmol/LCJ.[facility] RCVDMFIWVNOFW943 - 50 U/LCJ.[facility] LABORATORYeGFR->60[facility] eGFR-All Other Races>60.[facility] LABORATORYComment: eGFR (Estimated GFR) Units of [...] StatusJoan Smith MDLABORATORYFinal ResultPerforming OrganizationAddressCity/State/ZIP CodePhone Number [facility] [address] [place] [address] from Last 3 Months or Most Recently Relevant to Health Maintenance Insurance Care Teams Team MemberRelationshipSpecialtyStart DateEnd Date Caden Mendez MD PCP - GeneralFamily Medicine03/08/12
--- NOTE | 2025-09-12 14:37 | CT_ITS ---
The [address] [address] Patient Name: MATTY WADE MRN: [id number] date: 1970 Sex: M Assigned Patient Location: ER Current Patient Location: ER Accession/Order Number: [id number] Exam Date: 09/12/2025 14:48 Report Date: 09/12/2025 15:24 At the request of: TAMEKA DUGGAN MD Procedure: CT head/brain wo con CT BRAIN WITHOUT CONTRAST: CLINICAL HISTORY: headache nausea vomiting COMPARISON: 12/06/2022 TECHNIQUE: Contiguous axial unenhanced images were obtained through the brain. This CT exam was performed using one or more following dose reduction techniques: Automated exposure control, adjustment of the mA and/or kV according to patient size, or use of iterative reconstruction technique. FINDINGS: There is no evidence of midline shift, intra or extra-axial fluid collection, hemorrhage or CT evidence of of acute large vascular distribution stroke. Visualized intraorbital contents appear unremarkable. Visualized paranasal sinuses are clear. The surrounding soft tissues are normal. CT/CT head/brain wo con IMPRESSION: NO ACUTE INTRACRANIAL ABNORMALITY. Impression dictated by: Venkat Rodas M.D. 09/12/2025 3:24 PM Dictation Location: [place] [address] Electronically authenticated by: [id number] Y Date: 09/12/2025 15:24
[2025-09-12] MEDS: PROCHLORPERAZINE 10 MG/2 ML VIAL IV (15:07)
[2025-09-12] MEDS: KETOROLAC TROMETHAMINE 30 MG/ML VIAL 15 MG IVP (15:07)
[2025-09-12 15:23] LABS: Alanine Aminotransferase 21 U/L (16-63); Albumin Globulin Ratio 0.8; Albumin Level 3.3 g/dL (3.4-5.0); Alkaline Phosphatase 169 U/L (46-116); Anion Gap 6.7; Aspartate Amino Transferase 17 U/L (15-37); Blood Urea Nitrogen 12.0 mg/dL (7.0-18.0); Calcium 9.3 mg/dL (8.5-10.1); Carbon Dioxide 33.2 mmol/L (21.0-32.0); Chloride 99 mmol/L (98-107); Estimated GFR (African America >60 (>=60 mL/min/1.73m^2); Estimated GFR (Non-African Ame >60 (>=60 mL/min/1.73m^2); Globulin 4.1 g/dL; Glucose 126 mg/dL (74-106); Potassium 3.9 mmol/L (3.5-5.1); Sodium 135 mmol/L (136-145); Total Protein 7.4 g/dL (6.4-8.2)
[2025-09-12 15:25] LABS: Hematocrit 37.2 % (42.0-54.0); Hemoglobin 12.4 g/dL (14.0-18.0); Immature Granulocytes Abs Auto 0.06 10^3/uL (0.00-0.03); Immature Granulocytes Pct Auto 1.6 % (0.0-0.5); Lymphocytes Absolute Auto 0.3 10^3/uL (1.2-3.8); Mean Corpuscular HGB Conc 33.3 g/dL (29.9-35.2); Mean Corpuscular Hemoglobin 28.1 pg (25.9-34.0); Mean Corpuscular Volume 84.2 fL (80.0-94.0); Platelet Count 92 10^3/uL (150-450); Red Blood Count 4.42 10^6/uL (4.70-6.10); White Blood Count 3.9 10^3/uL (4.0-11.0)
--- NOTE | 2025-09-12 15:29 | ED.GENADUL1 ---
HPI HPI - General Adult General Chief complaint: Nausea/Vomiting/Diarrhea Stated complaint: N/V, HEADACHE Time Seen by Provider: 09/12/25 13:37 Source: patient Mode of arrival: ambulance History of Present Illness HPI narrative: Patient presented to us with a headache associated with nausea vomiting generalized body ache and he could not sleep last night Patient mentioned that the headache was severe he denies any other concerns No diarrhea but he also had no appetite for the last few days No chest pain no cough no difficulty breathing Related Data Home Medications ?Medication ?Instructions ?Recorded ?Confirmed carvedilol 25 mg tablet 25 mg PO BID 06/14/23 09/12/25 furosemide 20 mg tablet 20 mg PO DAILY PRN edema 06/14/23 08/21/25 gabapentin 600 mg tablet 600 mg PO DAILY@1200 06/14/23 08/21/25 pantoprazole 40 mg tablet,delayed 40 mg PO Q12H 06/14/23 09/12/25 release simvastatin 20 mg tablet 20 mg PO .qhs 06/14/23 09/12/25 modafinil 200 mg tablet 200 mg PO BID 09/04/23 08/21/25 potassium chloride 10 mEq 10 meq PO Q12H 09/04/23 09/12/25 tablet,extended release amantadine HCl 100 mg tablet 100 mg PO BID 12/28/23 09/12/25 cholecalciferol (vitamin D3) 125 6,000 unit PO DAILY 12/28/23 08/21/25 mcg (5,000 unit) capsule multivitamin (Daily Multi-Vitamin 1 tab PO DAILY@1200 12/28/23 08/21/25 tablet) biotin 10 mg tablet 10 mg PO DAILY@1200 09/19/24 08/21/25 citalopram 40 mg tablet 40 mg PO DAILY 09/20/24 09/12/25 aspirin 81 mg tablet,delayed 81 mg PO DAILY 03/06/25 08/21/25 release (Adult Low Dose Aspirin) meclizine 25 mg tablet 25 mg PO DAILY PRN dizziness 03/06/25 08/21/25 sodium, calcium, magnesium, 4.5 g PO HS 03/06/25 09/12/25 potassium oxybates 0.5 gram/mL oral soln (Xywav) sumatriptan succinate 100 mg 100 mg PO Q2H PRN migraine headache 03/06/25 09/12/25 tablet (Imitrex) doxazosin 8 mg tablet 8 mg PO DAILY@1200 08/21/25 08/21/25 glycopyrrolate 1 mg tablet 1 mg PO BID@0600,1200 08/21/25 09/12/25 ondansetron HCl 4 mg tablet 8 mg PO Q8H PRN nausea and vomiting 09/12/25 09/12/25 Previous Rx's ?Medication ?Instructions ?Recorded apixaban 5 mg tablet (Eliquis) 5 mg PO BID #60 tabs 06/21/25 linezolid 600 mg tablet 600 mg PO BID 10 days #20 tabs 08/24/25 ondansetron 4 mg disintegrating 4 mg PO Q8H PRN nausea and 09/12/25 tablet vomiting 48 hours #10 tabs Allergies Allergy/AdvReac Type Severity Reaction Status Date / Time No Known Drug Allergies Allergy Verified 08/21/25 03:21 Opioid HPI Opioid Management Most Recent Opioid Data: Last Pain Scale 4 08/25/25, 09:23 Last ORT Total Score 3 08/21/25, 09:16 Last ORT Risk Category Low Risk 08/21/25, 09:16 Review of Systems ROS Status of ROS 10 or more systems reviewed and unremarkable except as noted in history and below [facility] Medical History DVT (deep venous thrombosis) ?I82.409 - Acute embolism and thrombosis of unspecified deep veins of unspecified lower extremity (ICD-10) Cellulitis of right leg ?L03.115 - Cellulitis of right lower limb (ICD-10) Pain in right leg ?M79.604 - Pain in right leg (ICD-10) Type 2 diabetes mellitus with foot ulcer ?E11.621 - Type 2 diabetes mellitus with foot ulcer (ICD-10) ?L97.509 - Non-pressure chronic ulcer of other part of unspecified foot with unspecified severity (ICD-10) Type 2 diabetes mellitus with diabetic polyneuropathy ?E11.42 - Type 2 diabetes mellitus with diabetic polyneuropathy (ICD-10) Acute hypercapnic respiratory failure ?J96.02 - Acute respiratory failure with hypercapnia (ICD-10) Foot ulcer ?L97.509 - Non-pressure chronic ulcer of other part of unspecified foot with unspecified severity (ICD-10) Cellulitis of left leg ?L03.116 - Cellulitis of left lower limb (ICD-10) Chronic foot ulcer ?L97.509 - Non-pressure chronic ulcer of other part of unspecified foot with unspecified severity (ICD-10) Chronic pain syndrome ?G89.4 - Chronic pain syndrome (ICD-10) Lumbar spondylosis ?M47.816 - Spondylosis without myelopathy or radiculopathy, lumbar region (ICD-10) Peripheral neuropathy ?G62.9 - Polyneuropathy, unspecified (ICD-10) Type 2 diabetes mellitus ?E11.9 - Type 2 diabetes mellitus without complications (ICD-10) Closed fracture of left distal fibula ?S82.832A - Other fracture of upper and lower end of left fibula, initial encounter for closed fracture (ICD-10) Ankle fracture ?S82.899A - Other fracture of unspecified lower leg, initial encounter for closed fracture (ICD-10) Prolonged emergence from general anesthesia ?T88.59XA - Other complications of anesthesia, initial encounter (ICD-10) Pain management contract signed ?Z02.89 - Encounter for other administrative examinations (ICD-10) Back pain ?M54.9 - Dorsalgia, unspecified (ICD-10) PTSD (post-traumatic stress disorder) ?F43.10 - Post-traumatic stress disorder, unspecified (ICD-10) Depression ?F32.A - Depression, unspecified (ICD-10) Dysphagia ?R13.10 - Dysphagia, unspecified (ICD-10) Uvulitis ?K12.2 - Cellulitis and abscess of mouth (ICD-10) Insomnia ?G47.00 - Insomnia, unspecified (ICD-10) Migraine ?G43.909 - Migraine, unspecified, not intractable, without status migrainosus (ICD-10) GERD (gastroesophageal reflux disease) ?K21.9 - Gastro-esophageal reflux disease without esophagitis (ICD-10) Dyspnea on exertion ?R06.09 - Other forms of dyspnea (ICD-10) Heart valve disorder ?I38 - Endocarditis, valve unspecified (ICD-10) Hypoglycemia ?E16.2 - Hypoglycemia, unspecified (ICD-10) Delayed recovery from anesthesia Chronic foot ulcer ?L97.509 - Non-pressure chronic ulcer of other part of unspecified foot with unspecified severity (ICD-10) 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 - Central serous chorioretinopathy, unspecified eye (ICD-10) Chronic pain ?G89.29 - Other chronic pain (ICD-10) Narcolepsy ?G47.419 - 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) Anxiety ?F41.9 - Anxiety disorder, unspecified (ICD-10) Upper back pain ?M54.9 - Dorsalgia, unspecified (ICD-10) Low back pain ?M54.50 - Low back pain, unspecified (ICD-10) TMJ (dislocation of temporomandibular joint) ?S03.00XA - Dislocation of jaw, unspecified side, initial encounter (ICD-10) Obesity ?E66.9 - Obesity, unspecified (ICD-10) Sleep apnea ?G47.30 - Sleep apnea, unspecified (ICD-10) Hypertension ?I10 - Essential (primary) hypertension (ICD-10) Surgical History H/O foot surgery ?Z98.890 - Other specified postprocedural states (ICD-10) H/O radiofrequency ablation (RFA) of nerve of lumbar spine ?Z98.890 - Other specified postprocedural states (ICD-10) History of fusion of cervical spine ?Z98.1 - Arthrodesis status (ICD-10) H/O inguinal hernia repair ?Z98.890 - Other specified postprocedural states (ICD-10) ?Z87.19 - Personal history of other diseases of the digestive system (ICD-10) H/O repair of rotator cuff ?Z98.890 - Other specified postprocedural states (ICD-10) History of uvulopalatopharyngoplasty ?Z98.890 - Other specified postprocedural states (ICD-10) Family History Father Family history of CHF (congestive heart failure) Family history of diabetes mellitus Family history of hypertension Grandfather Family history of myocardial infarction Family history of stroke Grandmother Family history of stroke Social History (Updated 08/21/25 @ 09:49 by Parvin Merlos) Within the past year, how often did you have a drink containing alcohol: 2-4 times a month Within the past year, how many standard drinks containing alcohol did you have on a typical day: 1 or 2 Within the past year, how often did you have six or more drinks on one occasion: less than monthly Total score: 1 Score interpretation: A score less than 4 is consistent with normal alcohol consumption. Smoking status: Never smoker Non-prescribed substance use: cannabis (any form) Previous occupational history: unemployed Highest level of school completed/degree received: high school graduate Are you now , , , , never or living with a partner: In a typical week, how many times do you talk on the telephone with family, friends, or neighbors: twice per week How often do you get together with friends or relatives: twice per week How often do you attend lutheran or holiness services: never Do you belong to any clubs or organizations such as lutheran groups unions, fraternal or athletic groups, or school groups: no Total score: 2 Score interpretation: A score of greater than or equal to 2 indicates the lowest level of social isolation. Little interest or pleasure in doing things: not at all Feeling down, depressed, or hopeless: not at all Feel stressed/tense/nervous/anxious/difficulty sleeping: not at all Do you think of yourself as: straight/heterosexual Gender Identity: male Exam Narrative Exam Narrative: Nurses notes and vital signs reviewed and patient is not hypoxic. General: Well-appearing and in no apparent distress. Skin: Warm, dry, no pallor noted. No rash. Head: Normocephalic, atraumatic. Neck: Supple, non-tender. Eye: Pupils are equal, round and EOMI. No scleral icterus. Ears, Nose, Mouth, and Throat: TM are clear, no nasal mucosal hypertrophy. Oral mucosa is moist, no posterior oropharynx erythema, uvula is mid-line Cardiovascular: Regular Rate and Rhythm without murmur, gallop or rub. Respiratory: No accessory muscle use or respiratory distress. Lungs are clear to auscultation, no wheezing, rales or rhonchi GI: Abdomen is soft, non-distended. Normal bowel sounds. No masses appreciated. No tenderness to palpation. No rebound, guarding, or rigidity noted. Constitutional Vital Signs, click to edit/add: Last Vital Signs Temp 97.5 F L 09/12/25 13:33 Pulse 71 09/12/25 13:33 Resp 18 09/12/25 13:33 BP 104/63 09/12/25 17:30 Pulse Ox 96 09/12/25 14:30 O2 Del Method Room Air 09/12/25 13:33 Course Vital Signs Vital signs: Vital Signs Temperature 97.5 F L 09/12/25 13:33 Pulse Rate 71 09/12/25 13:33 Respiratory Rate 18 09/12/25 13:33 Blood Pressure 122/70 09/12/25 13:33 Pulse Oximetry 92 L 09/12/25 13:33 Oxygen Delivery Method Room Air 09/12/25 13:33 Temperature 97.5 F L 09/12/25 13:33 Pulse Rate 71 09/12/25 13:33 Respiratory Rate 18 09/12/25 13:33 Blood Pressure 104/63 09/12/25 17:30 Pulse Oximetry 96 09/12/25 14:30 Oxygen Delivery Method Room Air 09/12/25 13:33 Medical Decision Making MDM Narrative Medical decision making narrative: Patient with his headache and history of anticoagulation specially with the patient's symptoms did not respond initially to supportive care the patient had a CT head showing no acute pathology But he was treated also with Toradol and Compazine after which he was feeling much better and he was able to sleep the patient was provided with IV fluids as well as Zofran after which he was feeling much better Patient presentation mostly secondary to viral illness specially that his symptoms of decreased p.o. intake generalized body ache and nausea and vomiting associated with a white blood cell being low in the CBC Chemistry with otherwise is within normal and the patient was discharged home with supportive care with Zofran and hydration The patient to follow-up with the primary care within 2 to 3 days and to come back to the ER in case of any worsening of the current symptoms or any new symptoms or concerns Lab Data Labs: Lab Results 09/12/25 09/12/25 Range/Units 13:38 15:02 WBC 3.9 L (4.0-11.0) 10^3/uL RBC 4.42 L (4.70-6.10) 10^6/uL Hgb 12.4 L (14.0-18.0) g/dL Hct 37.2 L (42.0-54.0) % MCV 84.2 (80.0-94.0) fL MCH 28.1 (25.9-34.0) pg MCHC 33.3 (29.9-35.2) g/dL RDW 15.2 H (11.0-15.0) % Plt Count 92 L (150-450) 10^3/uL MPV 9.6 (9.5-13.5) fL Neut % (Auto) 79.2 H (43.0-75.0) % Lymph % (Auto) 7.5 L (20.5-60.0) % [place] % (Auto) 10.9 (1.7-12.0) % Eos % (Auto) 0.3 L (0.9-7.0) % Baso % (Auto) 0.5 (0.2-2.0) % Neut # (Auto) 3.1 (1.4-6.5) 10^3/uL Lymph # (Auto) 0.3 L (1.2-3.8) 10^3/uL [place] # (Auto) 0.4 (0.3-0.8) 10^3/uL Eos # (Auto) 0.0 (0.0-0.7) 10^3/uL Baso # (Auto) 0.0 (0.0-0.1) 10^3/uL Abs Immat Gran (auto) 0.06 H (0.00-0.03) 10^3/uL Imm/Tot Granulo (auto) 1.6 H (0.0-0.5) % Sodium 135 L (136-145) mmol/L Potassium 3.9 (3.5-5.1) mmol/L Chloride 99 (98-107) mmol/L Carbon Dioxide 33.2 H (21.0-32.0) mmol/L Anion Gap 6.7 BUN 12.0 (7.0-18.0) mg/dL Creatinine 0.91 (0.70-1.30) mg/dL Est GFR ( Amer) >60 (>=60 mL/min/1.73m^2) Est GFR (Non-Af Amer) >60 (>=60 mL/min/1.73m^2) BUN/Creatinine Ratio 13.2 Glucose 126 H (74-106) mg/dL Calcium 9.3 (8.5-10.1) mg/dL Total Bilirubin 0.7 (0.2-1.0) mg/dL AST 17 (15-37) U/L ALT 21 (16-63) U/L Alkaline Phosphatase 169 H (46-116) U/L Total Protein 7.4 (6.4-8.2) g/dL Albumin 3.3 L (3.4-5.0) g/dL Globulin 4.1 g/dL Albumin/Globulin Ratio 0.8 Influenza Type A Ag Negative Influenza Type B Ag Negative RSV Antigen Not detected (NOT DETECTE) SARS-CoV-2 Ag (CV2AG) Negative (NEGATIVE) Discharge Plan Discharge Chief Complaint: Nausea/Vomiting/Diarrhea Clinical Impression: Acute viral syndrome, Migraine Patient Disposition: Home, Self-Care Time of Disposition Decision: 16:40 Condition: Good Prescriptions / Home Meds: New ondansetron 4 mg tablet,disintegrating 4 mg PO Q8H PRN (Reason: nausea and vomiting) 2 Days Qty: 10 0RF No Action potassium chloride 10 mEq tablet extended release 10 meq PO Q12H modafinil 200 mg tablet 200 mg PO BID Patient Comments: am and noon glycopyrrolate 1 mg tablet 1 mg PO BID@0600,1200 doxazosin 8 mg tablet 8 mg PO DAILY@1200 linezolid 600 mg tablet 600 mg PO BID 10 Days Qty: 20 0RF gabapentin 600 mg tablet 600 mg PO DAILY@1200 carvedilol 25 mg tablet 25 mg PO BID Rx Instructions: must administer with a meal/food simvastatin 20 mg tablet 20 mg PO .qhs pantoprazole 40 mg tablet,delayed release (DR/EC) 40 mg PO Q12H furosemide 20 mg tablet 20 mg PO DAILY PRN (Reason: edema) cholecalciferol (vitamin D3) 125 mcg (5,000 unit) capsule 6,000 unit PO DAILY multivitamin [Daily Multi-Vitamin] Tablet 1 tab PO DAILY@1200 amantadine HCl 100 mg tablet 100 mg PO BID Patient Comments: AM AND NOON biotin 10 mg tablet 10 mg PO DAILY@1200 citalopram 40 mg tablet 40 mg PO DAILY Xywav 0.5 gram/mL solution 4.5 g PO HS sumatriptan succinate [Imitrex] 100 mg tablet 100 mg PO Q2H PRN (Reason: migraine headache) Rx Instructions: do not exceed 2 doses per 24 hrs meclizine 25 mg tablet 25 mg PO DAILY PRN (Reason: dizziness) aspirin [Adult Low Dose Aspirin] 81 mg tablet,delayed release (DR/EC) 81 mg PO DAILY Eliquis 5 mg Tablet 5 mg PO BID MDD 2 po BID for 6 days then 1 po Qty: 60 11RF ondansetron HCl 4 mg tablet 8 mg PO Q8H PRN (Reason: nausea and vomiting) Print Language: Ethiopian Instructions: Migraine Headache (ED), Viral Syndrome (ED) Referrals: Caden Mendez MD [Primary Care Provider, Family Practice] - 1 week Discharge Date/Time: 09/12/25 18:12
[2025-09-12] MEDS: 0.9 % SODIUM CHLORIDE 1,000 ML 1000 ML IV (16:29)
== END 2025-09-12 18:12 | disposition home or self-care (01) ==
PROVIDERS: Emergency Provider Emergency Medicine; PCP Family Medicine
DX: G43.909 Migraine, unspecified, not intractable, without status migrainosus (principal); B34.9 Viral infection, unspecified; Z79.01 Long term (current) use of anticoagulants
CPT/HCPCS: 36415; 70450; 80053; 85025; 87420; 87804; 87811; 96361; 96374; 96375; 99284; J0780; J1885